=== PATIENT | male | born 1960 | race Caucasian/White ===

== ENCOUNTER 2017-03-30 13:12 | Emergency (ER) | payer OTHER, SELFPAY ==
[2017-03-30 15:26] VITALS: BP 151/77; PULSE 93; RESP 18; TEMP 37.7; O2SAT 95; BMI 27.3
[2017-03-30 15:55] LABS: UTC Influenza A Antigen Positive (Negative); UTC Influenza B Antigen Negative (Negative)
--- NOTE | 2017-03-30 16:46 | HMH.EDUTC ---
[facility] [place] Disposition Clinical Impression: Influenza A Disposition: Home, Self-Care Condition on Discharge: Good Instructions: DI for Influenza -- Adult Additional Instructions: * Too late to start tamiflu. Most effective when started within 48 hours of symptoms onset. * Lots of rest * Increase fluids, water, gatorade, powerade, pedialyte if /toddler/child * Monitor Temp. Tylenol every 4 hours as needed no more then 5 times a day or 4000mg in 24 hours and/or ibuprofen every 6 hours as needed no more then 3200mg in 24 hours (as long as your primary care doctor has told you that it is ok to take both) for fever/aches/pain. ER if fever no less than 101 despite tylenol and Ibuprofen * You (or your child) are contagious until no fever, aches, chills x 24 hours without medication for symptoms. * * Very important you monitor your blood sugars, especially when ill. Too high can be critical and cause you to need admitted and possibly even result in where as too low can cause hypoglycemic coma. pt states he is aware. Follow up IMMEDIATELY for new or worsening symptoms, improvement followed by suddenly feeling worse OR no noticeable improvement over the next 48-72 hours. 911 for difficulty breathing Referrals: Asad Victor MD [Primary Care Provider] - Time of Disposition: 16:58 Medical Decision Making Vital Signs: 03/30/17 15:26 Temperature 99.8 F H Temperature Source Temporal Artery Scan Pulse Rate [Left] 93 H Respiratory Rate 18 Blood Pressure [Right Arm] 151/77 Blood Pressure Mean [Right Arm] 101 Blood Pressure Source [Right Arm] Automatic Cuff Blood Pressure Position [Right Arm] Sitting 02 Sat by Pulse Oximetry 95 Oxygen Delivery Method Room Air - Lab Data Lab Results 03/30/17 15:29: Influenza Type A Ag Positive A, Influenza Type B Ag Negative - Quan Inquiry Pt receiving controlled substance: No [facility] [place] HPI - General Stated complaint: body aches Time Seen by Provider: 03/30/17 16:47 Mode of Arrival: Ambulatory Source of Information: Patient Limitations: No Limitations Description of Symptoms (Recalled from Triage Doc. by RN): COUGH, CONGESTION FEVER 3 DAYS HEENT Symptoms (Recalled from RN notes): Yes Resp Symptoms (Recalled from RN notes): No Skin Symptoms (Recalled from RN notes): No MS Symptoms (Recalled from RN notes): No Functional Status (Recalled from RN notes): N - History of Present Illness Provider Complaint: c/o I think I have the flu . Cough and head congestion x 3-4 days. Tired. Not sure about fevers. Hasn't taken or tried anything for symptoms. Has not had flu vaccine. No known sick contacts. - Related Data Home Medications Medication Instructions Recorded Confirmed Aspirin [Aspir-Low] 81 mg PO DAILY 03/30/17 03/30/17 Clopidogrel Bisulfate [Plavix 75mg 75 mg PO DAILY 03/30/17 03/30/17 Tab] Lisinopril [Lisinopril 10mg Tab] 10 mg PO DAILY 03/30/17 03/30/17 Allergies Allergy/AdvReac Type Severity Reaction Status Date / Time No Known Allergies Allergy Verified 03/30/17 15:36 - Worker's Comp Is this a Worker's Comp case?: No [facility] History Medical History: Reports:: Diabetes Mellitus Type 2 (doesn't monitor FSBG x years), Hypertension Denies:: Asthma, Congestive Heart Failure, Chronic Obstructive Pulmonary Disease (COPD) - *Social History Smoking Status: Current every day smoker Tobacco Type: cigarettes Alcohol Intake: never - Psychiatric History Expresses thoughts of harming self/others: None Suicide Plan Description: No Plan ROS Obtained: Yes All systems reviewed & no additional complaints except as noted - Constitutional Reports anorexia (drinking water and coffee and eating very little), Reports body ache(s), Reports chills, Reports fatigue, Reports fever(s) (subjective), Reports headache(s) (mild, intermittently) - Eyes Denies discharge - ENT Reports nasal discharge, Reports post nasal drip, Denies ear pain, Denies nasal congesti
== END 2017-03-30 17:03 | disposition home or self-care (01) ==
PROVIDERS: Emergency Provider Nurse Practitioner Family; PCP Emergency Medicine
DX: J10.1 Influenza due to other identified influenza virus with other respiratory manifestations (principal); F17.210 Nicotine dependence, cigarettes, uncomplicated
CPT/HCPCS: 87276; 87804; 99201

== ENCOUNTER → 2018-03-06 18:09 | Outpatient (CLI) | payer OTHER, SELFPAY ==
[2018-03-06 18:37] LABS: Basophils # 0.1 K/mm3 (0-0.2); Basophils % 0.5 % (0.1-2.0); Eosinophils # 0.5 K/mm3 (0.0-0.4); Eosinophils % 4.3 % (0.1-12.0); Hematocrit 40.6 % (42.0-52.0); Hemoglobin 13.2 g/dL (14.1-18.0); Lymphocytes % 27.1 % (10-50); Mean Corpuscular HGB Conc 32.5 g/dL (31.8-35.4); Mean Corpuscular Hemoglobin 30.4 pg (27.0-31.2); Mean Corpuscular Volume 93.3 fl (80-94); Mean Platelet Volume 7.3 fl (7.4-10.4); Monocytes # 0.7 K/mm3 (0.1-1.0); Monocytes % 6.3 % (1.7-9.3); Neutrophils # 6.7 K/mm3 (1.8-7.8); Neutrophils % 61.7 % (37.0-80.0); Platelet Count 380 K/mm3 (142-424); Red Blood Count 4.35 M/mm3 (4.60-6.20); Red Cell Distribution Width 13.6 % (11.5-17.5); White Blood Count 10.9 K/mm3 (4.8-10.8)
[2018-03-06 19:22] LABS: Alanine Aminotransferase 22 U/L (12-78); Albumin Level 3.7 gm/dL (3.4-5.0); Albumin/Globulin Ratio 1.2 (1.1-1.8); Anion Gap 13.6 mEq/L (5-15); Aspartate Amino Transferase 7 U/L (15-37); Bilirubin,Total 0.4 mg/dL (0.2-1.0); Blood Urea Nitrogen 13 mg/dL (7-18); Calcium 8.8 mg/dL (8.5-10.1); Carbon Dioxide 25 mmol/L (21.0-32.0); Chloride 104 mmol/L (98-107); Cholesterol 128 mg/dL (140-200); Creatinine,Serum 0.61 mg/dL (0.70-1.30); Estimated Glomerular Filt Rate 135 ml/min (>60); GFR (African American) 164 ML/MIN (>60); Globulin 3.2 gm/dl (1.3-3.2); Glucose 120 mg/dL (74-106); HDL Cholesterol 34 mg/dL (27-67); LDL Cholesterol 75 mg/dL (0-130); Potassium 4.6 mmoL/L (3.5-5.1); Sodium 138 mmol/L (136-145); Total Protein,Serum 6.9 gm/dL (6.4-8.2); Triglycerides 94 mg/dL (30-200); VLDL Cholesterol 19 mg/dL (0-40)
[2018-03-06 19:23] LABS: Alkaline Phosphatase 80 U/L (46-116); Chol/HDL Ratio 3.8 (1-3.5); Thyroid Stimulating Hormone 1.35 uIU/ml (0.358-3.740)
[2018-03-06 19:39] LABS: Hemoglobin A1C 7.2 % (0.0-7.0)
[2018-03-08 10:15] LABS: Microalbumin, Urine 54.2 ug/mL (Not Estab.)
[2018-03-08 15:22] LABS: Vitamin D 25 Hydroxy 34.2 ng/mL (30.0-100.0)
== END ==
PROVIDERS: Visit Provider Nurse Practitioner Family
DX: E11.9 Type 2 diabetes mellitus without complications (principal)
CPT/HCPCS: 80053; 80061; 82043; 82570; 82652; 83036; 84436; 84443; 85025

== ENCOUNTER → 2018-03-21 06:50 | Outpatient (CLI) | payer OTHER, SELFPAY ==
--- NOTE | 2018-03-21 06:52 | CI_ITS ---
Cerebrovascular Exam Indications: 433.10 Occlusion/stenosis of carotid artery without cerebral infarction. 785.9 Bruit. IMPRESSIONS 1. The bilateral vertebral arteries are patent with normal antegrade flow. 2. Study suggests less than 20% stenosis involving the right internal carotid artery. 3. Study suggests 50-69% stenosis involving the left internal carotid artery. Disease regression from the study of 14-Sep-2016. Had RECA following last carotid ultrasound on 09/14/16. Bilateral ECA's >60% no change Labs, prior tests, procedures, and surgery: Right endarterectomy. Labs, prior tests, procedures, and surgery: Right endarterectomy. Carotid duplex study. Complete study and Doppler flow study including spectral analysis, color and jiménez scale imaging. Location: Vascular laboratory. Patient status: Outpatient. Tables: Arterial flow: + +--------+--------+ Location V sys V ed + +--------+--------+ Right CCA - proximal 228cm/s 21.3cm/s + +--------+--------+ Right CCA - distal 87.6cm/s 22.4cm/s + +--------+--------+ Right ECA 210cm/s -------- + +--------+--------+ Right ICA - proximal 57.2cm/s 21.3cm/s + +--------+--------+ Right ICA - mid 98.8cm/s 40.4cm/s + +--------+--------+ Right ICA - distal 108cm/s 30.3cm/s + +--------+--------+ Right vertebral 67.3cm/s -------- + +--------+--------+ Left CCA - proximal 119cm/s 31.4cm/s + +--------+--------+ Left CCA - distal 95.4cm/s 24.7cm/s + +--------+--------+ Left ECA 205cm/s -------- + +--------+--------+ Left ICA - proximal 134cm/s 49.4cm/s + +--------+--------+ Left ICA - mid 117cm/s 42.7cm/s + +--------+--------+ Left ICA - distal 143cm/s 52.8cm/s + +--------+--------+ Left vertebral 70.7cm/s -------- + +--------+--------+ Velocity ratios: + + + + + + Right, V sys Right, V ed Left, V sys Left, V ed + + + + + + Max ICA/dist CCA 1.23 1.8 1.5 2.14 + + + + + + (Report amended ) Electronically signed by: Erich Alvarez [id number]
--- NOTE | 2018-03-21 06:52 | NM_ITS ---
CARDIOLITE SPECT MYOCARDIAL PERFUSION SCAN, REST AND STRESS: EXERCISE STRESS [facility] REVIEW QGS EF AND WALL MOTION EVALUATION: QPS - PERFUSION EVALUATION HISTORY: CAD, Hx of ND, HTN, DM, Tobacco use, SOB, Fatigue DOSE: 10.04 mCi technetium 99m mibi intravenously at rest followed by 31.2 mCi technetium 99m mibi following the intravenous ministration of 0.4 mg of Lexiscan. Resting blood pressure is 147/84. Stress blood pressure 167/85. FINDINGS: Ejection fraction is calculated to be 59%. Stress images reveal severely decreased activity in the septum mid anterior wall and inferior wall. Rest images reveal significant improvement yet still diminished IMPRESSION: High risk abnormal stress test with extensive nontransmural myocardial infarction involving the septum mid anterior apical wall and inferior wall with significant ischemia. Normal ejection fraction with hypokinetic inferior wall.
--- NOTE | 2018-03-21 07:14 | HMH.ITSHM ---
Current Home Medications as stated by this patient Mono Bobby or professional healthcare representative. []PRAVASTATIN NITRO METOPROLOL METFORMIN LISINOPRIL ISOSORBIDE DOCUSATE SODIUM CLOPIDOGREL ASA AMLODIPINE
== END ==
PROVIDERS: PCP Emergency Medicine; Visit Provider Internal Medicine Cardiovascular Disease
DX: R06.09 Other forms of dyspnea (principal); I25.10 Atherosclerotic heart disease of native coronary artery without angina pectoris; E11.8 Type 2 diabetes mellitus with unspecified complications; E78.5 Hyperlipidemia, unspecified; F17.200 Nicotine dependence, unspecified, uncomplicated; I10 Essential (primary) hypertension; I65.23 Occlusion and stenosis of bilateral carotid arteries; R20.0 Anesthesia of skin; R20.2 Paresthesia of skin; R53.83 Other fatigue; I73.9 Peripheral vascular disease, unspecified
CPT/HCPCS: 78452; 93017; 93306; 93880; A9502; J2785

== ENCOUNTER 2018-05-08 09:02 | Outpatient (RCR) | payer OTHER, SELFPAY | END 2018-06-20 08:56 | disposition home or self-care (01) | LOC: PT 09:02 | PROVIDERS: Visit Provider Internal Medicine | DX: Z95.5 Presence of coronary angioplasty implant and graft (principal) | CPT/HCPCS: 93798 ==

== ENCOUNTER → 2018-06-18 14:28 | Outpatient (CLI) | payer OTHER, SELFPAY ==
[2018-06-18 14:57] LABS: Hemoglobin A1C 8.4 % (0.0-7.0)
== END ==
PROVIDERS: Visit Provider Nurse Practitioner Family
DX: E11.9 Type 2 diabetes mellitus without complications (principal); Z79.84 Long term (current) use of oral hypoglycemic drugs
CPT/HCPCS: 83036

== ENCOUNTER → 2018-06-19 10:35 | Outpatient (CLI) | payer OTHER, SELFPAY ==
[2018-06-19 10:40] LABS: Microscopic, Urine URINE MICROSCOPIC (MICROSCOPIC)
[2018-06-19 11:12] LABS: Appearance,Urine CLEAR (Clear); Bilirubin,Urine Negative (Negative); Blood, Urine Negative (Negative); Color,Urine YELLOW (Yellow); Glucose,Urine (UA) 1+ (Negative); Ketones,Urine Negative (Negative); Leukocyte Esterase,Urine Negative (Negative); Nitrate,Urine Negative (Negative); Protein,Urine Negative (Negative); Specific Gravity, Urine <= 1.005 (1.005-1.030); Urobilinogen,Urine 0.2 EU/dl (0.2)
[2018-06-19 11:14] LABS: Basophils # 0.1 K/mm3 (0-0.2); Basophils % 0.5 % (0.1-2.0); Creatinine,Urine Random 42 mg/dL (20-320); Eosinophils # 0.4 K/mm3 (0.0-0.4); Eosinophils % 2.7 % (0.1-12.0); Hematocrit 40.3 % (42.0-52.0); Hemoglobin 13.6 g/dL (14.1-18.0); Lymphocytes # 2.6 K/mm3 (0.7-4.5); Lymphocytes % 20.2 % (10-50); Mean Corpuscular HGB Conc 33.8 g/dL (31.8-35.4); Mean Corpuscular Volume 91.6 fl (80-94); Mean Platelet Volume 6.8 fl (7.4-10.4); Monocytes # 0.6 K/mm3 (0.1-1.0); Monocytes % 4.5 % (1.7-9.3); Neutrophils # 9.4 K/mm3 (1.8-7.8); Neutrophils % 72.1 % (37.0-80.0); Platelet Count 360 K/mm3 (142-424); Red Cell Distribution Width 12.8 % (11.5-17.5); Total Protein,Urine Random 14.9 mg/dL (0.0-11.9)
[2018-06-19 11:40] LABS: WBC,Urine Occasional #/hpf (0-3)
[2018-06-19 12:53] LABS: Anion Gap 15.8 mEq/L (5-15); Blood Urea Nitrogen 13 mg/dL (7-18); Carbon Dioxide 25 mmol/L (21.0-32.0); Chloride 101 mmol/L (98-107); Creatinine,Serum 0.67 mg/dL (0.70-1.30); Estimated Glomerular Filt Rate 121 ml/min (>60); GFR (African American) 147 ML/MIN (>60); Glucose 257 mg/dL (74-106); Phosphorous 3.3 mg/dL (2.4-4.9); Potassium 4.8 mmoL/L (3.5-5.1); Sodium 137 mmol/L (136-145)
[2018-06-20 08:44] LABS: Vitamin D 25 Hydroxy 28.4 ng/mL (30.0-100.0)
[2018-06-20 15:44] LABS: Parathyroid Hormone Intact 36 pg/mL (15-65)
== END ==
PROVIDERS: Visit Provider Internal Medicine Nephrology
DX: R80.9 Proteinuria, unspecified (principal)
CPT/HCPCS: 36415; 80069; 81001; 82330; 82570; 82652; 83970; 84155; 85025

== ENCOUNTER → 2018-06-28 13:06 | Outpatient (POV) | payer OTHER, SELFPAY | PROVIDERS: Visit Provider Internal Medicine Nephrology | DX: Z00.00 Encounter for general adult medical examination without abnormal findings (principal) ==

== ENCOUNTER 2018-07-26 17:49 | Emergency (ER) | payer OTHER, SELFPAY ==
[2018-07-26 18:14] VITALS: BP 152/77; PULSE 84; RESP 18; TEMP 37.1; O2SAT 96; BMI 29.0
--- NOTE | 2018-07-26 18:29 | HMH.EDUTC ---
[facility] [place] Disposition Clinical Impression: Parotitis Disposition: Home, Self-Care Condition on Discharge: Good Instructions: Parotitis Additional Instructions: Go to the ER for any worsening symptoms, such as fever, chills, etc. Follow up with your regular doctor. I put in a referral to ENT. Please call the office number and schedule yourself an appointment there to be rechecked also. Prescriptions: Amoxicillin/Potassium Clav [Augmentin 875-125 Tablet] 1 tab PO Q12H 10 Days #20 tab methylPREDNISolone [Medrol] 4 mg PO DIRECTED 6 Days #21 tab.ds.pk Referrals: Asad Victor MD [Primary Care Provider] - Time of Disposition: 18:45 Medical Decision Making - Medical Records Medical records reviewed: Yes: I reviewed the patient's medical records. - Quan Inquiry Pt receiving controlled substance: No Quan was queried for this patient: No Vital Signs: 07/26/18 18:14 07/26/18 18:38 Temperature 98.8 F 98.8 F Temperature Source Temporal Artery Scan Oral Pulse Rate 84 Pulse Rate [Right Brachial] 84 Respiratory Rate 18 18 Blood Pressure 152/77 H Blood Pressure [Right Arm] 152/77 H Blood Pressure Mean [Right Arm] 102 Blood Pressure Source Automatic Cuff Blood Pressure Source [Right Arm] Automatic Cuff Blood Pressure Position Sitting Blood Pressure Position [Right Arm] Sitting 02 Sat by Pulse Oximetry 96 Oxygen Delivery Method Room Air Room Air Orders (Tests/Meds): ED MEDICATIONS Discontinued Medications Generic Name Dose Route Start Last Admin Trade Name Freq PRN Reason Stop Dose Admin Ceftriaxone Sodium 1 gm 07/26/18 18:30 07/26/18 18:37 Rocephin 1gm Vial IM 07/26/18 18:31 1 gm ONCE ONE Administration Protocol Lidocaine HCl 0 ml 07/26/18 18:30 07/26/18 18:37 Lidocaine 1% 10ml Mdv IM 07/26/18 18:31 2.1 ml ONCE ONE Administration [facility] [place] HPI - General Stated complaint: Jaw Swelling Time Seen by Provider: 07/26/18 18:20 Mode of Arrival: Family Vehicle Source of Information: Patient Limitations: No Limitations Description of Symptoms (Recalled from Triage Doc. by RN): C/O JAW SWELLING X 1 WEEK HEENT Symptoms (Recalled from RN notes): Yes Resp Symptoms (Recalled from RN notes): No Skin Symptoms (Recalled from RN notes): No MS Symptoms (Recalled from RN notes): No Functional Status (Recalled from RN notes): N/A - History of Present Illness Provider Complaint: He c/o swelling in the area just in front of his right ear and along his jaw line on the right side for the past 1 week. In the distant past he had parotitis. He thinks he has it again. He denies any fever or chills. He does admit to having a sore throat and pain with opening his mouth. - Related Data Home Medications Medication Instructions Recorded Confirmed nitroglycerin 0.4 mg sublingual 0.4 mg SUBLINGUAL Q5M PRN 04/17/17 06/18/18 tablet bupropion HCl SR 150 mg tablet,12 150 mg PO DAILY tab 07/19/18 hr sustained-release docusate sodium 100 mg capsule 100 mg PO QDAY PRN 07/19/18 Previous Rx's Medication Instructions Recorded clopidogrel 75 mg tablet 75 mg PO DAILY #90 tab 04/11/18 isosorbide mononitrate ER 30 mg 30 mg PO QAM #90 tab 04/20/18 tablet,extended release 24 hr metoprolol tartrate 50 mg tablet 50 mg PO BID #180 tab 04/20/18 lisinopril 10 mg tablet 5 mg PO DAILY #90 tab 04/23/18 metformin ER 500 mg 500 mg PO BID #60 tab 06/19/18 tablet,extended release 24 hr amlodipine 5 mg tablet 5 mg PO QDAY #90 tab 07/16/18 Amoxicillin/Potassium Clav 1 tab PO Q12H 10 Days #20 tab 07/26/18 [Augmentin 875-125 Tablet] methylPREDNISolone [Medrol] 4 mg PO DIRECTED 6 Days #21 07/26/18 tab.ds.pk Allergies Allergy/AdvReac Type Severity Reaction Status Date / Time No Known Allergies Allergy Verified 07/19/18 09:51 - Worker's Comp Is this a Worker's Comp case?: No [facility] History - Hepatitis A Screen Drug use history?: No High risk sexual behaviors?: No Hist
--- NOTE | 2018-07-26 18:33 | ED_ITS ---
[facility] [place] Clinical Impression: Parotitis Disposition: Home, Self-Care Condition on Discharge: Good Instructions: Parotitis Additional Instructions: Go to the ER for any worsening symptoms, such as fever, chills, etc. Follow up with your regular doctor. I put in a referral to ENT. Please call the office number and schedule yourself an appointment there to be rechecked also. Prescriptions: Amoxicillin/Potassium Clav [Augmentin 875-125 Tablet] 1 tab PO Q12H 10 Days #20 tab methylPREDNISolone [Medrol] 4 mg PO DIRECTED 6 Days #21 tab.ds.pk Referrals: Asad Victor MD [Primary Care Provider] - Time of Disposition: 18:45 Medical Decision Making - Medical Records Medical records reviewed: Yes: I reviewed the patient's medical records. - Quan Inquiry Pt receiving controlled substance: No Quan was queried for this patient: No Vital Signs: 07/26/18 18:14 07/26/18 18:38 Temperature 98.8 F 98.8 F Temperature Source Temporal Artery Scan Oral Pulse Rate 84 Pulse Rate [Right Brachial] 84 Respiratory Rate 18 18 Blood Pressure 152/77 H Blood Pressure [Right Arm] 152/77 H Blood Pressure Mean [Right Arm] 102 Blood Pressure Source Automatic Cuff Blood Pressure Source [Right Arm] Automatic Cuff Blood Pressure Position Sitting Blood Pressure Position [Right Arm] Sitting 02 Sat by Pulse Oximetry 96 Oxygen Delivery Method Room Air Room Air Orders (Tests/Meds): ED MEDICATIONS Discontinued Medications Generic Name Dose Route Start Last Admin Trade Name Freq PRN Reason Stop Dose Admin Ceftriaxone Sodium 1 gm 07/26/18 18:30 07/26/18 18:37 Rocephin 1gm Vial IM 07/26/18 18:31 1 gm ONCE ONE Administration Protocol Lidocaine HCl 0 ml 07/26/18 18:30 07/26/18 18:37 Lidocaine 1% 10ml Mdv IM 07/26/18 18:31 2.1 ml ONCE ONE Administration [facility] [place] - General Stated complaint: Jaw Swelling Time Seen by Provider: 07/26/18 18:20 Mode of Arrival: Family Vehicle Source of Information: Patient Limitations: No Limitations Description of Symptoms (Recalled from Triage Doc. by RN): C/O JAW SWELLING X 1 WEEK HEENT Symptoms (Recalled from RN notes): Yes Resp Symptoms (Recalled from RN notes): No Skin Symptoms (Recalled from RN notes): No MS Symptoms (Recalled from RN notes): No Functional Status (Recalled from RN notes): N/A - History of Present Illness Provider Complaint: He c/o swelling in the area just in front of his right ear and along his jaw line on the right side for the past 1 week. In the distant past he had parotitis. He thinks he has it again. He denies any fever or chills. He does admit to having a sore throat and pain with opening his mouth. - Related Data Home Medications Medication Instructions Recorded Confirmed nitroglycerin 0.4 mg sublingual 0.4 mg SUBLINGUAL Q5M PRN 04/17/17 06/18/18 tablet bupropion HCl SR 150 mg tablet,12 150 mg PO DAILY tab 07/19/18 hr sustained-release docusate sodium 100 mg capsule 100 mg PO QDAY PRN 07/19/18 Previous Rx's Medication Instructions Recorded clopidogrel 75 mg tablet 75 mg PO DAILY
[2018-07-26 18:38] VITALS: BP 152/77; PULSE 84; RESP 18; TEMP 37.1; O2SAT 96
== END 2018-07-26 18:51 | disposition home or self-care (01) ==
LOC: UTC 18:50
PROVIDERS: Emergency Provider Nurse Practitioner Family; PCP Emergency Medicine
DX: K11.20 Sialoadenitis, unspecified (principal)
CPT/HCPCS: 96372; 99201

== ENCOUNTER → 2019-01-22 10:01 | Outpatient (CLI) | payer OTHER, SELFPAY ==
--- NOTE | 2019-01-22 10:03 | US_ITS ---
APPROVED REPORT Exam Type: Lower Extremity Segmental Pressures Indications Claudication: Limb Pain: Numbness/Tingling History of Smoking CAD Risk Factors Hypertension Cardiac Disease Diabetes Pressures/Indices Right Indices Left Indices Brachial 140.00 mmHg Brachial 132.00 mmHg Low Thigh 115.00 mmHg 0.82 Low Thigh 66.00 mmHg 0.47 Calf 103.00 mmHg 0.74 Calf 93.00 mmHg 0.66 Ankle(PT) 110.00 mmHg 0.79 Ankle(PT) 76.00 mmHg 0.54 Ankle(DP) 122.00 mmHg 0.87 Ankle(DP) 92.00 mmHg 0.66 Digit 57.00 mmHg 0.41 Digit 47.00 mmHg 0.34 Findings R SIL .8 L ISL .5 R TBI .[address] TBI .3 Dr. Workman's office notified Conclusion Mild arterial disease on the right Moderate arterial disease on the left Electronically signed by : Dakota Quach MD 01/23/2019 17:46:40
--- NOTE | 2019-01-22 10:03 | CA_ITS ---
APPROVED REPORT Moving Van Driver: Rebecca Wu RDCS Laterality: Bilateral Study Quality: Good Indications: CHELSEA DM PREVIOUS SMOKER CAD H/O R ENDARTERECTOMY Doppler Spectral Velocity Analysis ECA (R) 292.90/ cm/s ECA (L) 203.40/23.70 cm/s dICA (R) 64.70/24.60 cm/s dICA (L) 84.10/28.30 cm/s Marlo (R) 70.60/23.80 cm/s Marlo (L) 99.50/26.30 cm/s pICA (R) 76.30/12.70 cm/s pICA (L) 120.80/31.70 cm/s dCCA (R) 117.70/22.30 cm/s dCCA (L) 75.60/15.70 cm/s pCCA (R) 163.00/25.00 cm/s pCCA (L) 98.00/20.00 cm/s Vert (R) 50.00/15.40 cm/s Vert (L) 46.60/12.30 cm/s ICA/CCA 1.60 ICA/CCA 3.02 Findings Duplex evaluation demonstrates stenosis of the right proximal internal carotid artery <20% with PSV <140 cm/sec, EDV <100 cm/sec, and IC/CC Ratio <4.0.Duplex evaluation demonstrates stenosis of the left proximal internal carotid artery in the range of 50-69% with PSV =140 cm/sec, EDV <100 cm/sec, and IC/CC Ratio <4.0.Antegrade flow seen bilateral vertebral arteries. Elevated ECA velocities. No signicant change from previous exam of 03/21/2018 Conclusion Duplex evaluation demonstrates stenosis of the right proximal internal carotid artery <20% with PSV <140 cm/sec, EDV <100 cm/sec, and IC/CC Ratio <4.0.Duplex evaluation demonstrates stenosis of the left proximal internal carotid artery in the range of 50-69% with PSV =140 cm/sec, EDV <100 cm/sec, and IC/CC Ratio <4.0.Antegrade flow seen bilateral vertebral arteries. Elevated ECA velocities. No signicant change from previous exam of 03/21/2018 Electronically signed by : Dakota Quach MD 01/23/2019 17:42:22
== END ==
PROVIDERS: PCP Nurse Practitioner Family; Visit Provider Internal Medicine
DX: I65.23 Occlusion and stenosis of bilateral carotid arteries (principal); I73.9 Peripheral vascular disease, unspecified; R06.00 Dyspnea, unspecified; R42 Dizziness and giddiness; E11.9 Type 2 diabetes mellitus without complications; E78.5 Hyperlipidemia, unspecified; I10 Essential (primary) hypertension; I25.10 Atherosclerotic heart disease of native coronary artery without angina pectoris; F17.200 Nicotine dependence, unspecified, uncomplicated; Z79.84 Long term (current) use of oral hypoglycemic drugs
CPT/HCPCS: 93880; 93923

== ENCOUNTER 2019-05-24 12:55 | Outpatient (RCR) | payer OTHER, SELFPAY | END 2019-07-25 13:07 | disposition home or self-care (01) | LOC: PT 12:55 | PROVIDERS: Visit Provider Nurse Practitioner Family | DX: Z95.1 Presence of aortocoronary bypass graft (principal); I25.10 Atherosclerotic heart disease of native coronary artery without angina pectoris; I73.9 Peripheral vascular disease, unspecified | CPT/HCPCS: 93798 ==

== ENCOUNTER → 2020-03-11 16:40 | Outpatient (CLI) | payer OTHER, SELFPAY ==
[2020-03-11 17:33] LABS: Basophils # 0.1 K/mm3 (0-0.2); Basophils % 0.5 % (0.1-2.0); Eosinophils # 0.2 K/mm3 (0.0-0.4); Eosinophils % 1.5 % (0.1-12.0); Hematocrit 42.1 % (42.0-52.0); Hemoglobin 14.2 g/dL (14.1-18.0); Lymphocytes # 2.4 K/mm3 (0.7-4.5); Lymphocytes % 24.3 % (10-50); Mean Corpuscular HGB Conc 33.8 g/dL (31.8-35.4); Mean Corpuscular Hemoglobin 31.5 pg (27.0-31.2); Mean Corpuscular Volume 93.5 fl (80-94); Mean Platelet Volume 8.1 fl (7.4-10.4); Monocytes # 0.7 K/mm3 (0.1-1.0); Neutrophils # 6.7 K/mm3 (1.8-7.8); Neutrophils % 66.8 % (37.0-80.0); Platelet Count 390 K/mm3 (142-424); Red Blood Count 4.51 M/mm3 (4.60-6.20); Red Cell Distribution Width 13.6 % (11.5-17.5)
[2020-03-11 17:50] LABS: Alanine Aminotransferase 27 U/L (12-78); Albumin Level 4.1 g/dl (3.5-5.0); Albumin/Globulin Ratio 1.3 (1.1-1.8); Alkaline Phosphatase 97 U/L (38-126); Anion Gap 14.6 mEq/L (5-15); Aspartate Amino Transferase 23 U/L (17-59); Bilirubin,Total 0.4 mg/dl (0.2-1.3); Blood Urea Nitrogen 17 mg/dl (9-20); Calcium 9.9 mg/dl (8.4-10.2); Carbon Dioxide 24 mmol/L (22.0-30.0); Chloride 102 mmol/L (98-107); Chol/HDL Ratio 4.9 (1-3.5); Cholesterol 165 mg/dl (140-200); Estimated Glomerular Filt Rate 115 ml/min (>60); GFR (African American) 139 ML/MIN (>60); Globulin 3.1 g/dL (1.3-3.2); Glucose 180 mg/dl (74-100); HDL Cholesterol 34 mg/dl (40-60); Potassium 4.6 mmoL/L (3.5-5.1); Sodium 136 mmol/L (136-145); Total Protein,Serum 7.2 g/dl (6.3-8.2); Triglycerides 330 mg/dl (30-150); VLDL Cholesterol 66 mg/dL (0-40)
[2020-03-11 18:02] LABS: Direct LDL Cholesterol 95.56 mg/dL (100-129)
[2020-03-11 18:07] LABS: 25-OH Vitamin D, Total 24.6 ng/mL (30-100); T4 (Thyroxine) 6.6 ug/dl (5.53-11.0)
[2020-03-11 18:21] LABS: Thyroid Stimulating Hormone 1.26 uIU/mL (0.465-4.68)
[2020-03-11 19:23] LABS: Hemoglobin A1C 7.6 % (4.0-6.0)
[2020-03-11 19:36] LABS: Creatinine,Urine Random 125 mg/dL (Not Estab.); Microalbumin/Creatinine Ratio 168.4
== END ==
PROVIDERS: Visit Provider Nurse Practitioner Family
DX: E11.9 Type 2 diabetes mellitus without complications (principal); E78.5 Hyperlipidemia, unspecified; I10 Essential (primary) hypertension; I25.10 Atherosclerotic heart disease of native coronary artery without angina pectoris; I73.9 Peripheral vascular disease, unspecified; F17.200 Nicotine dependence, unspecified, uncomplicated; E55.9 Vitamin D deficiency, unspecified; Z79.4 Long term (current) use of insulin
CPT/HCPCS: 80053; 80061; 82043; 82306; 82570; 83036; 84436; 84443; 85025

== ENCOUNTER → 2020-03-17 06:37 | Outpatient (CLI) | payer OTHER, SELFPAY ==
--- NOTE | 2020-03-17 06:38 | CA_ITS ---
APPROVED REPORT Exam: Pharmacologic Technologist: Minnie Lechuga Ht: 5 ft 7 in Wt: 202 lbs BSA: 2.03 m2 HR: 60 bpm BP: 149/65 mmHg Indications: Right arm pain, Stenosis, Shortness of Air Medical History Medications: Amlodipine,,,,, Lisinopril,,,,, Isosorbide,,,,, Aspirin,,,,, Metoprolol,,,,, Pravastatin,,,,, Ropinirole,,,,, INSULIN,,,,, Nitroglycerin,,,,, DOcusate,,,,, RIvaROXABAN,,,,, BuPRIprion,,,,, Stress Test Details Test: LEXISCAN HR Resting HR: 58 bpm Max Heart Rate (APMHR): 159 bpm Max HR Achieved: 92 bpm Target HR (85% APMHR): 135 bpm % of APMHR: 57 Recovery HR: 70 bpm BP Resting BP: 149.0/65.0 mmHg Max BP: 168.0/73.0 mmHg Recovery BP: 166.0/71.0 mmHg ECG Resting ECG: Sinus bradycardia, intermittent right bundle branch block Clinical Exercise duration: 04:07 min Highest Stage Achieved: Exercise capacity: 1.0 METs Stress ECG Conclusion Symptoms: Shortness of air, malaise, headache. No chest pain. Arrhythmias/Ectopy: Right bundle branch block intermitently ST-T Changes: No significant changes. Conclusion: Unremarkable Lexiscan stress. Myoview images reported separately. Electronically signed by : Nirmal Leone, 03/18/2020 06:38:31
--- NOTE | 2020-03-17 06:38 | NM_ITS ---
APPROVED REPORT Exam: Nuclear Stress Test Indication: Chest pain, SOB, HTN, CAD, CABG, High cholesterol, DM, Tobacco use Patient Location: Outpatient Stress Tech: Minnie Lechuga [place] Tech:Aniyah Etienne, ARRT, RT (R)(N) Ht: 5 ft 7 in Wt: 201 lbs HR: 60 bpm BP: 149/65 mmHg BSA: 2.03 m2 BMI: 31.4 History: Chest pain, SOB, HTN, CAD, CABG, High cholesterol, DM, Tobacco use Procedure: Patient received a 0.4 mg of intravenous Lexiscan, resting heart rate 60 bpm, resting blood pressure 149/65 mmHg, with Lexiscan maximum heart rate achived was 77 bpm which is Less than 85 % of the maximum predicted heart rate and blood pressure was 149/74 mmHg. With Lexiscan, patient denied any complaint of chest pain. Electrocardiogram Resting electrocardiogram showed sinus rhythm right bundle branch block, with Lexiscan there is less than 1.[address] segment depression noted from the baseline EKG. The EKG portion of the Lexiscan is nondiagnostic. Cardiac Stress and Resting SPECT Images: Cardiac Stress and Resting SPECT images were obtained using technetium 99m Myoview 32.1 mCi stress and 10.01 mCi at rest. Gated SPECT for analysis of segmental wall motion and calculation of the ejection fraction also done. Prone images were also obtained. Cardiac stress and resting SPECT images show fixed defect involving the inferoseptal wall consistent with area of myocardial scarring without significant christina-infarct ischemia, computer derived ejection fraction is 59% with mild inferoseptal wall hypokinesis. Right ventricle is mildly enlarged with normal contractility. Conclusion: 1. The EKG portion of the Lexiscan is nondiagnostic. 2. Scintigraphic evidence of myocardial scarring involving the inferoseptal wall, computer derived ejection fraction is 59% with segmental wall motion abnormality described above, right ventricle is mildly enlarged with normal contractility. 3. Abnormal Lexiscan Myoview study. Electronically signed by : Nirmal Leone, 03/18/2020 06:51:39
--- NOTE | 2020-03-17 06:38 | CA_ITS ---
APPROVED REPORT EXAM: Comprehensive 2D, Doppler, and color-flow Echocardiogram Skein Inspector: Heike Carmona RVT Ht: 5 ft 7 in Wt: 202lbs BSA: 2.03 BP: 160/82 mmHg Indications: SOA,CAD,PAD,SENT,CABG,EX SMOKER,DM,HTN,HLD 2D Dimensions LVOT 1.54 cm (M/F) 1.5-2.5 M-Mode Dimensions RVDd 3.50 cm (0.9-2.6) LA Diam 4.10 cm (1.9-4.0) LVDd 5.95 cm (3.5-5.7) Ao Diam 2.68 cm (2.0-3.7) LVDs 4.30 cm (3.5-5.7) IVSd 0.92 cm (0.6-1.1) PWd 1.00 cm (0.6-1.1) EF (Teich) 52.90% FS 27.70% EDV (Teich) 176.60 mL ESV (Teich) 83.10 mL LV Diastology E Decel Time 243.00 (160-240 msec) E/A Ratio 1.0 MED E' 7.40 (< 7 cm/sec) E'/MED E' Ratio 8.05 (>14) LAT E' 7.30 (<10 cm/sec) E/LAT E' Ratio 8.16 (>14) Aortic Valve AI PHT 689.00 ms Mitral Valve MV E Max Gonzales. 60.00 (40-130 cm/s) MV A Velocity 63.00 (40-130 cm/s) E/A Ratio 0.95 MV Decel. Time 243.00 (160-240 ms) MV PHT 71.00 ms Pulmonary Valve PV Peak Velocity 78.00 (50-150 cm/s) Left Ventricle Technically difficult study because of the patient factors and poor acoustic windows, endocardial surfaces are poorly visualized, left atrium is mildly enlarged, left ventricle is normal size, mild concentric left ventricular hypertrophy, visually estimated ejection fraction approximately 45%, there is moderate hypokinesis involving the basal septum and inferior wall. Grade 1 diastolic dysfunction seen without tissue Doppler evidence of raise left atrial pressure. Right Ventricle Right atrium and right ventricle are normal size and contractility. Aortic Valve Aortic valve is thickened and calcified leaflet continue to display good mobility, there is no aortic stenosis, there is mild aortic insufficiency. Mitral Valve Mitral valve is grossly normal, there is mild mitral regurgitation. Tricuspid Valve Tricuspid valve is grossly normal, there is mild tricuspid regurgitation, tricuspid regurgitation jet velocity is inadequate for calculation of the right ventricular systolic pressure. Pulmonic Valve Pulmonic valve is poorly visualized. Great Vessels Aortic root is normal size. Pericardium No significant pericardial effusion noted. Conclusion 1. Technically difficult study because of the patient factors and poor acoustic windows. 2. Mildly enlarged left atrium, normal left ventricular size, mild concentric left ventricular hypertrophy, visually estimated ejection fraction 45% with segmental wall motion abnormality described above, grade 1 diastolic dysfunction seen without tissue Doppler evidence of raise left atrial pressure. 3. Mild aortic, mild mitral and tricuspid regurgitation. 4. No significant pericardial effusion noted. Electronically signed by : Nirmal Leone, 03/18/2020 05:43:42
--- NOTE | 2020-03-17 07:47 | CA_ITS ---
APPROVED REPORT Automotive Painter Helper: Heike Carmona RVT Laterality: Bilateral Study Quality: Excellent Indications: bilateral carotid artery stenosis Risk Factors Hypertension: Hyperlipidemia Smoking Surgery/Intervention Endarterectomy: right Doppler Spectral Velocity Analysis ECA (R) 224.20/6.40 cm/s ECA (L) 150.80/13.90 cm/s dICA (R) 80.20/21.40 cm/s dICA (L) 88.80/16.00 cm/s Marlo (R) 87.70/18.20 cm/s Marlo (L) 96.20/17.10 cm/s pICA (R) 69.50/13.90 cm/s pICA (L) 124.00/21.40 cm/s dCCA (R) 73.80/6.40 cm/s dCCA (L) 59.90/7.50 cm/s pCCA (R) 111.20/6.40 cm/s pCCA (L) 117.60/15.00 cm/s Vert (R) 48.10/9.60 cm/s Vert (L) 48.10/8.60 cm/s ICA/CCA 1.19 ICA/CCA 2.07 Findings Study suggests less than 20% stenosis of the right internal cartoid artery. Study suggests 20-49% stenosis of the left internal cartoid artery. Antegrade flow seen bilateral vertebral arteries. Conclusion Study suggests less than 20% stenosis of the right internal cartoid artery. Study suggests 20-49% stenosis of the left internal cartoid artery. Antegrade flow seen bilateral vertebral arteries. Electronically signed by : Dakota Quach MD 03/17/2020 17:05:17
--- NOTE | 2020-03-17 08:36 | HMH.ITSHM ---
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 []ROPINIROLE RIVAROXABAN PREDNISONE PRAVASTATIN NITRO NAPROXEN METOPROLOL LISINOPRIL ISOSORBIDE INSULIN DOCUSATE BUPROPION ASA AMLODIPINE
== END ==
PROVIDERS: PCP Emergency Medicine; Visit Provider Urology
DX: R06.00 Dyspnea, unspecified (principal); M79.601 Pain in right arm; I25.10 Atherosclerotic heart disease of native coronary artery without angina pectoris; I65.23 Occlusion and stenosis of bilateral carotid arteries; I73.9 Peripheral vascular disease, unspecified; E78.2 Mixed hyperlipidemia; I10 Essential (primary) hypertension; F17.200 Nicotine dependence, unspecified, uncomplicated
CPT/HCPCS: 78452; 93017; 93306; 93880; A9502; J2785

== ENCOUNTER → 2020-03-24 10:48 | Outpatient (CLI) | payer OTHER, SELFPAY ==
--- NOTE | 2020-03-24 10:48 | CT_ITS ---
Procedure: CT ABDOMEN PELVIS WO CON Referring Doctor: Killian Roberts Patient Age:60Y CLINICAL INDICATION: hernia left inguinal hernia COMPARISON: CT ABDPELW/WO CT ABD PELVIS W/WO CONTRAST from 04/30/2013 TECHNIQUE: . No IV contrast Axial images obtained with sagittal and coronal reformats. All CT scans at the facility use one or more dose reduction, viz: automated exposure control, ma/kV adjustment per patient size (including targeted exams where dose is matched to indication, i.e. head), or iterative reconstruction technique. FINDINGS: Lower thorax: No acute finding. Heart normal size with CABG noted ABDOMEN: Lack of IV contrast decreases sensitivity Liver: No masses or biliary dilatation.. Scattered granulomatous calcifications again noted Gallbladder: Nondistended. No a tiny density at posterior gallbladder axial image 3 could reflect a tiny stone or sludge period. Common duct normal Pancreas: No masses or peripancreatic fluid collections. Spleen: u normal size. Granulomatous calcifications but e Adrenals: unremarkable --- tract---no obstructive uropathy kidneys/ureters: A few faint tiny punctate calculi bilaterally Left kidney. Tiny less than 2 mm calculus lower pole calyx but nonobstructive. Right kidney tiny less than 2 mm nonobstructive calculus upper pole right kidney Ureters unremarkable . Urinary bladder but no calculi. No masses. Moderate-sized prostate ---GI tract---- Stomach. Generous wall thickness most likely reflects lack of distension. Duodenal loop a generous caliber was small air-fluid level. Small-bowel. Scattered small/moderate air-fluid levels, with borderline dilatation of a few of the loops. Appendix normal caliber no appendicitis. 1 The PROMINENT LEFT INGUINAL HERNIA containing generous loop of the redundant sigmoid colon and generous surrounding fat. No inflammation no strangulation or incarceration evident. Large bowel normal caliber nondilated no obstruction moderate stool throughout This left inguinal hernia is larger and pronounced than it was 2014 . Peritoneum: No abnormal fluid collections. No obvious inflammatory changes. No free air. Lymph nodes: No enlarged lymph nodes apparent. Vasculature: . moderate diffuse atherosclerotic calcification aorta and iliac arteries and to lesser degree the branches but no aneurysm. Bones: Mild superior endplate compression fracture at L3. This was seen on previous 2014 study but is slightly more pronounced with slight additional sclerosis at mid body L 3 IMPRESSION: 1. Prominent Left Inguinal Hernia-which is more prominent than on previous 2014 CT; and now contains generous loop of sigmoid colon within it. No inflammation no strangulation nor bowel obstruction. Large bowel is normal caliber, nondilated Colonic diverticulosis but no diverticulitis. Small-bowel upper normal caliber with scattered small to moderate air-fluid levels, nonspecific. Possible minor ileus 2.. Tiny density posterior gallbladder axial image 3-reflect tiny stones or sludge 3. Very tiny punctate non obstructive renal calculi again noted. 4.Old superior endplate compression L3 vertebra again noted. Only very slightly more pronounced than 2014 Dictated by: Erich Alvarez MD 03/25/2020 17:23 Erich Alvarez MD in [place] 03/25/2020 17:23
== END ==
PROVIDERS: PCP Emergency Medicine; Visit Provider Nurse Practitioner Family
DX: K40.90 Unilateral inguinal hernia, without obstruction or gangrene, not specified as recurrent (principal)
CPT/HCPCS: 74176

== ENCOUNTER → 2020-03-28 07:19 | Outpatient (CLI) | payer OTHER, SELFPAY ==
[2020-03-28 07:42] LABS: Basophils # 0.1 K/mm3 (0-0.2); Basophils % 0.6 % (0.1-2.0); Eosinophils # 0.2 K/mm3 (0.0-0.4); Eosinophils % 1.3 % (0.1-12.0); Hematocrit 40.9 % (42.0-52.0); Hemoglobin 13.7 g/dL (14.1-18.0); Lymphocytes # 2.3 K/mm3 (0.7-4.5); Mean Corpuscular HGB Conc 33.6 g/dL (31.8-35.4); Mean Corpuscular Hemoglobin 30.8 pg (27.0-31.2); Mean Corpuscular Volume 91.6 fl (80-94); Mean Platelet Volume 7.5 fl (7.4-10.4); Monocytes # 0.8 K/mm3 (0.1-1.0); Neutrophils # 12.9 K/mm3 (1.8-7.8); Neutrophils % 79.1 % (37.0-80.0); Platelet Count 339 K/mm3 (142-424); Red Blood Count 4.46 M/mm3 (4.60-6.20); Red Cell Distribution Width 13.6 % (11.5-17.5); White Blood Count 16.3 K/mm3 (4.8-10.8)
[2020-03-28 07:43] LABS: MANUAL DIFFERENTIAL MANUAL DIFFERENTIAL (MANUAL DIFF)
[2020-03-28 08:07] LABS: Anion Gap 10.1 mEq/L (5-15); Blood Urea Nitrogen 23 mg/dl (9-20); Calcium 10.1 mg/dl (8.4-10.2); Carbon Dioxide 28 mmol/L (22.0-30.0); Chloride 102 mmol/L (98-107); Estimated Glomerular Filt Rate 115 ml/min (>60); GFR (African American) 139 ML/MIN (>60); Glucose 209 mg/dl (74-100); Potassium 5.1 mmoL/L (3.5-5.1); Sodium 135 mmol/L (136-145)
[2020-03-28 08:25] LABS: Coronavirus 19 IgG Antibody Negative (Negative); Coronavirus 19 IgM Antibody Negative (Negative)
[2020-03-28 08:32] LABS: Lymphocytes % 16 % (10-50); Monocytes % 4 % (2-9); Neutrophils % 78 % (42-76); Platelet Estimate Normal; RBC Morphology Normal; Total Cells Counted 100
== END ==
PROVIDERS: Visit Provider Internal Medicine
DX: Z01.810 Encounter for preprocedural cardiovascular examination (principal); Z11.52 Encounter for screening for COVID-19; I25.10 Atherosclerotic heart disease of native coronary artery without angina pectoris; R94.31 Abnormal electrocardiogram [ECG] [EKG]; R94.39 Abnormal result of other cardiovascular function study
CPT/HCPCS: 36415; 80048; 85007; 85025; 86328

== ENCOUNTER 2020-03-30 09:55 | Day surgery (SDC) | payer OTHER, SELFPAY ==
[2020-03-30] VITALS (10 sets, daily range): BP systolic 115–156; BP diastolic 59–84; PULSE 63–85; RESP 12–20; TEMP 36.6; O2SAT 90–100; BMI 31.4
--- NOTE | 2020-03-30 | IR_ITS ---
APPROVED REPORT Patient Location: Outpatient PROCEDURES Left heart catheterization Left ventriculogram Selective coronary angiogram Selective engagement of the left internal mammary artery with angiography Catheter placement in the right common iliac artery Right common iliac artery unilateral antegrade angiogram Catheter placement in the right external iliac artery Right external iliac artery antegrade angiogram INDICATION Coronary artery disease, Accelerated angina pectoris, History of coronary bypass surgery, Peripheral artery disease with stenosis in the right common and external iliac artery Informed consent was obtained prior to the procedure. COMPLICATIONS NONE Estimated Blood Loss: LESS THAN 10 ML TECHNIQUE One percent lidocaine used to anesthetize the right groin. The right femoral artery was accessed via the Seldinger technique and a 5 Upper Sorbian sheath was placed in the right femoral artery. There was difficulty traversing the wire through the iliofemoral system. Once the wire was beyond the mini exchange technique was performed. A JL4 JR4 catheter were used to perform left heart catheterization left ventriculogram as well as selective engagement of left internal mammary artery. At the end of the procedure the catheter was pulled back into the right common iliac artery and the JR4 catheter was used to perform selective antegrade angiography. The catheter was then pulled back to the right external iliac artery and external iliac artery angiography was performed. At the end of the procedure the apparatus was removed the groin was reprepped closure changed sheath was removed good hemostasis was achieved using Perclose device patient was transferred to the postop holding area stable condition ANGIOGRAPHIC RESULTS The left main artery Normal The left anterior descending artery Is proximally normal and then has mid vessel stents which are subtotally occluded. Large first diagonal artery or large ramus intermedius is widely patent with mild atheromatous plaque but no stenosis greater than 10% The circumflex artery The circumflex artery is small nondominant and has a 70% stenosis and a 1 mm area in the midportion of the circumflex artery The right coronary artery Is dominant and has stents in the proximal through mid segment which are widely patent with 30% in-stent restenosis in the midportion. Distally there is 30 to 40% stenosis The BELL ventriculogram reveals Dilated ventricle with estimated ejection fraction 45 to 50% with inferior wall hypokinesis The left ventricular end-diastolic pressure 10 mmHg The left internal mammary artery is widely patent to the mid LAD Right common iliac artery has 30 to 40% nonflow-limiting stenosis The right external iliac artery has 30 to 40% nonflow-limiting stenoses IMPRESSION Coronary disease as described above Reduced ejection fraction with regional wall motion abnormality Patent LANZA to the LAD Mild to moderate nonflow limiting atheromatous plaque in the right common iliofemoral system PLAN 1. Medical management for both coronary disease and peripheral artery disease 2. Aggressive risk factor modification Electronically signed by : Mendoza Workman, 03/30/2020 13:14:37
== END 2020-03-30 16:16 | disposition home or self-care (01) ==
LOC: CATHLAB 09:56
PROVIDERS: PCP Emergency Medicine; Visit Provider Internal Medicine
DX: I25.118 Atherosclerotic heart disease of native coronary artery with other forms of angina pectoris (principal); I25.708 Atherosclerosis of coronary artery bypass graft(s), unspecified, with other forms of angina pectoris; Z95.1 Presence of aortocoronary bypass graft; Z95.820 Peripheral vascular angioplasty status with implants and grafts; I70.211 Atherosclerosis of native arteries of extremities with intermittent claudication, right leg; I65.23 Occlusion and stenosis of bilateral carotid arteries; Z79.01 Long term (current) use of anticoagulants; Z79.4 Long term (current) use of insulin; Z72.0 Tobacco use; E11.51 Type 2 diabetes mellitus with diabetic peripheral angiopathy without gangrene; I10 Essential (primary) hypertension; Z79.899 Other long term (current) drug therapy
CPT/HCPCS: 36246; 36248; 75710; 93458; 99152; C1725; C1760; C1769; C1894; J1644; Q9967

== ENCOUNTER → 2020-04-07 13:58 | Outpatient (CLI) | payer OTHER, SELFPAY ==
[2020-04-07 14:00] LABS: Microscopic, Urine URINE MICROSCOPIC (MICROSCOPIC)
[2020-04-07 14:25] LABS: Appearance,Urine CLEAR (Clear); Bilirubin,Urine Negative (Negative); Blood, Urine TRACE-I (Negative); Color,Urine YELLOW (Yellow); Glucose,Urine (UA) TRACE (Negative); Ketones,Urine Negative (Negative); Leukocyte Esterase,Urine Negative (Negative); Nitrate,Urine Negative (Negative); Protein,Urine TRACE (Negative); Urobilinogen,Urine 0.2 EU/dl (0.2)
[2020-04-07 14:27] LABS: Basophils # 0.1 K/mm3 (0-0.2); Basophils % 0.7 % (0.1-2.0); Eosinophils # 0.3 K/mm3 (0.0-0.4); Eosinophils % 2.5 % (0.1-12.0); Hematocrit 40.6 % (42.0-52.0); Hemoglobin 13.2 g/dL (14.1-18.0); Lymphocytes # 2.5 K/mm3 (0.7-4.5); Lymphocytes % 24.1 % (10-50); Mean Corpuscular HGB Conc 32.5 g/dL (31.8-35.4); Mean Corpuscular Hemoglobin 31.1 pg (27.0-31.2); Mean Corpuscular Volume 95.7 fl (80-94); Mean Platelet Volume 7.2 fl (7.4-10.4); Monocytes # 0.7 K/mm3 (0.1-1.0); Monocytes % 6.3 % (1.7-9.3); Neutrophils # 6.9 K/mm3 (1.8-7.8); Neutrophils % 66.5 % (37.0-80.0); Platelet Count 430 K/mm3 (142-424); Red Blood Count 4.25 M/mm3 (4.60-6.20); Red Cell Distribution Width 14.2 % (11.5-17.5); White Blood Count 10.4 K/mm3 (4.8-10.8)
[2020-04-07 15:18] LABS: Coronavirus 19 IgG Antibody Negative (Negative); Coronavirus 19 IgM Antibody Negative (Negative)
[2020-04-07 15:22] LABS: Anion Gap 11.9 mEq/L (5-15); Blood Urea Nitrogen 17 mg/dl (9-20); Calcium 9.6 mg/dl (8.4-10.2); Carbon Dioxide 27 mmol/L (22.0-30.0); Chloride 102 mmol/L (98-107); Estimated Glomerular Filt Rate 115 ml/min (>60); GFR (African American) 139 ML/MIN (>60); Glucose 214 mg/dl (74-100); Potassium 4.9 mmoL/L (3.5-5.1); Sodium 136 mmol/L (136-145)
== END ==
PROVIDERS: Visit Provider Surgery
DX: Z01.812 Encounter for preprocedural laboratory examination (principal); Z11.52 Encounter for screening for COVID-19; K40.90 Unilateral inguinal hernia, without obstruction or gangrene, not specified as recurrent
CPT/HCPCS: 36415; 80048; 81001; 85025; 86328

== ENCOUNTER 2020-04-10 05:18 | Day surgery (SDC) | payer OTHER, SELFPAY ==
[2020-04-08 11:39] VITALS: BMI 32.1
[2020-04-10] VITALS (13 sets, daily range): BP systolic 154–197; BP diastolic 65–86; PULSE 71–88; RESP 12–18; TEMP 36.4–37.1; O2SAT 92–98
[2020-04-10 06:45] LABS: POC Glucose,Bedside 188 (70-110)
--- NOTE | 2020-04-10 07:53 | HMH.ANESCL ---
[facility] Anesthesia Checklist - Patient Identification Patient Identification: Arm Band - Structural Data Admitted From: Home Planned Operative Procedure/s: [facility] Consent for Planned Operative Procedure(s) Verified: Yes - NPO Status Verified Time NPO: 00:00 - Additional verifications Anesthesia Reactions: No Hx Blood Transfusions: No Blood Transfusion Reaction: No - Anesthesia Plan Anesthesia Type: General [facility] History Medical History: Reports:: Coronary Artery Disease, Diabetes Mellitus Type 2, Hyperlipidemia, Hypertension, Peripheral Artery Disease Denies:: Asthma, Cancer, Congestive Heart Failure, Chronic Obstructive Pulmonary Disease (COPD), Internal Pacemaker, MRSA, Seizures *Have you ever received a pneumonia vaccine?: Yes *Have you received a flu vaccine this season?: Yes Other Medical History: Reports: Arthritis. Denies: Blood Transfusion Reaction Anesthesia experience/problems:: non Laterality Cases: Right: Carotid Endarterectomy Other Surgeries: Yes: No Previous Surgery, Angiogram, Cardiac Catheterization, Cardiac Surgery, Coronary Stent, Other. No: Pacemaker Amputation: No Fractures: No - *Social History Last grade of school completed: GED Smoking Status: Current every day smoker Tobacco Type: cigarettes # Packs/Day (cigarettes): 1 Alcohol Intake: never Substance Use Type: marijuana *Occupational Status:: disabled Housing: house Household Members: none *Travel in the last 8 weeks: None Family Hx:: No significant family history
--- NOTE | 2020-04-10 09:03 | P.OP_ITS ---
Date of procedure: 04/10/20 Pre-op Diagnosis:: Left inguinal (scrotal) hernia Post-op Diagnosis:: Chronically-incarcerated left inguinal hernia with sliding component Procedure performed:: Open left inguinal hernia repair Resection of cord and scrotal contents Surgeon:: Luke Morris MD Reconciliation Analyst(s):: Lizz Anesthesia: GETA Estimated blood loss (mL): 15 Operative findings:: Large complex chronically-incarcerated left inguinal hernia Sliding component Ingrowth adhesions to scrotal contents/testicle with vascular compromise Operative note:: After informed consent was obtained the patient was taken to the operating room and placed in the supine position. General anesthesia was induced and his abdomen/groin/scrotum was prepped and draped in a sterile fashion. After infiltration with local anesthetic a left oblique groin incision was made. Dissection was taken through Perlita's fascia to the level of the external aponeurosis. The external aponeurosis was sharply opened to the level of the external ring. Evaluation of the contents of the canal revealed a chronically- incarcerated hernia with a large portion of the sigmoid colon densely adhered into the scrotum. Careful elevation of the canal contents was utilized with careful dissection and retraction to free the incarcerated hernia/sigmoid colon. As dissection continued more distally the adhesions were noted to be very dense and ingrowth was noted of the sac/adhesions and the cord structures/scrotal contents/testicle. Vascular compromise to the testicle was noted and the decision was made to resect the cord and scrotal contents/testicle. This tissue was carefully elevated as dissection continued with electrocautery. The cord and scrotal contents were passed off for pathologic evaluation. The proximal portion was controlled with a combination of suture ligation (Vicryl) and electrocautery. The very thin sac was identified and carefully opened with Metzenbaum scissors. A sliding component was confirmed. The sac was closed with Vicryl suture. The sigmoid colon was carefully returned to the abdominal cavity with inversion of the sac. And extra-large PerFix plug was secured in position with interrupted Ethibond. The PerFix overlay at the end was secured to the shelving edge inferiorly and fascial margin superiorly with interrupted Ethibond. The external aponeurosis was reapproximated with running Vicryl. Perlita's fascia was reapproximated in a similar manner and skin was then closed with 4-0 Monocryl in a running subcuticular fashion. Steri-Strips were applied and the patient was transferred to recovery in stable condition after extubation. Condition: stable Disposition: PACU Specimens:: Cord and scrotal contents Complications:: Resection of cord and scrotal contents required secondary to ingrowth adhesions and vascular compromise
[2020-04-10 12:18] LABS: Microscopic,Cath URINE MICROSCOPIC (MICROSCOPIC)
[2020-04-10 12:54] LABS: Appearance,Urine/Cath CLEAR (Clear); Bilirubin,Cath Negative (Negative); Blood, Urine/Cath TRACE-L (Negative); Color,Urine/Cath YELLOW (Yellow); Glucose,Urine/Cath (UA) Negative (Negative); Ketones,Urine/Cath Negative (Negative); Leukocyte Esterase,Cath Negative (Negative); Nitrate,Cath Negative (Negative); Protein,Urine/Cath Negative (Negative); Urobilinogen,Cath 0.2 EU/dl (0.2)
[2020-04-10 13:23] LABS: RBC,Urine/Cath Occasional # /hpf (0-3); WBC,Urine/Cath Occasional #/hpf (0-3)
--- NOTE | 2020-04-10 17:45 | P.PN_ITS ---
[facility] Anesthesia Record Part II Discharge Time: 09:54 Destination: Surgical Day Care (OP Surgery) PACU nurse assessment reviewed?: Yes Patient Condition:: Good Anesthesia Complications:: None Swallowing reflex intact?: Yes Cyanosis?: No Blood Pressure: 154/66 Pulse Rate: 77 Temperature: 98.8 F Mental Status: Alert & Oriented Pain level:: 0 Nausea and/or vomitting:: None Intake, IV Amount: 0
== END 2020-04-10 11:06 | disposition home or self-care (01) ==
LOC: OR 05:20
PROVIDERS: PCP Emergency Medicine; Visit Provider Surgery
PROC: (CPT 49507; principal; 2020-04-10 07:30)
DX: K40.90 Unilateral inguinal hernia, without obstruction or gangrene, not specified as recurrent (principal); N44.8 Other noninflammatory disorders of the testis; I25.10 Atherosclerotic heart disease of native coronary artery without angina pectoris; E11.9 Type 2 diabetes mellitus without complications; E78.5 Hyperlipidemia, unspecified; I10 Essential (primary) hypertension; I73.9 Peripheral vascular disease, unspecified; M19.90 Unspecified osteoarthritis, unspecified site; Z72.0 Tobacco use; Z79.82 Long term (current) use of aspirin; Z79.4 Long term (current) use of insulin; Z79.899 Other long term (current) drug therapy
CPT/HCPCS: 49507; 54640; 81001; 82962; 96374; J2405

== ENCOUNTER → 2020-07-24 09:11 | Outpatient (CLI) | payer OTHER, SELFPAY ==
[2020-07-24 09:35] LABS: Basophils % 0.3 % (0.1-2.0); Eosinophils # 0.1 K/mm3 (0.0-0.4); Eosinophils % 0.5 % (0.1-12.0); Hematocrit 37.9 % (42.0-52.0); Hemoglobin 12.9 g/dL (14.1-18.0); Lymphocytes # 1.4 K/mm3 (0.7-4.5); Lymphocytes % 10.2 % (10-50); Mean Corpuscular HGB Conc 33.9 g/dL (31.8-35.4); Mean Corpuscular Hemoglobin 30.1 pg (27.0-31.2); Mean Corpuscular Volume 88.7 fl (80-94); Mean Platelet Volume 7.4 fl (7.4-10.4); Monocytes # 0.7 K/mm3 (0.1-1.0); Monocytes % 4.9 % (1.7-9.3); Neutrophils # 11.6 K/mm3 (1.8-7.8); Neutrophils % 84.1 % (37.0-80.0); Platelet Count 408 K/mm3 (142-424); Red Blood Count 4.28 M/mm3 (4.60-6.20); Red Cell Distribution Width 13.6 % (11.5-17.5); White Blood Count 13.8 K/mm3 (4.8-10.8)
--- NOTE | 2020-07-24 09:36 | XR_ITS ---
PROCEDURE: XR WRIST RT MIN 3V CLINICAL INDICATION: RT wrist pain COMPARISON: No exams were available for comparison FINDINGS: No fracture or dislocation. No lytic or blastic change. There is normal mineralization. The joint spaces are well-preserved. No significant degenerative/arthritic changes. No erosive changes evident. Other findings:There is minimal chondrocalcinosis of the triangular fibrocartilage. An accessory ossification center is present at the tip of the ulnar styloid. Mild prominence of the scapholunate joint space at 3 mm. IMPRESSION: Mild chondrocalcinosis of the triangular fibrocartilage Mild prominence of the scapholunate joint space which could be seen with ligamentous injury Dictated by: Dakota Quach MD 07/24/2020 10:38 Dakota Quach MD in [place] 07/24/2020 10:38
[2020-07-24 09:54] LABS: Hemoglobin A1C 9.1 % (4.0-6.0)
[2020-07-24 10:13] LABS: Alanine Aminotransferase 23 U/L (12-78); Albumin Level 4.2 g/dl (3.5-5.0); Albumin/Globulin Ratio 1.5 (1.1-1.8); Alkaline Phosphatase 107 U/L (38-126); Anion Gap 11.9 mEq/L (5-15); Aspartate Amino Transferase 17 U/L (17-59); Bilirubin,Total 0.3 mg/dl (0.2-1.3); Blood Urea Nitrogen 21 mg/dl (9-20); Calcium 9.8 mg/dl (8.4-10.2); Carbon Dioxide 22 mmol/L (22.0-30.0); Chloride 104 mmol/L (98-107); Chol/HDL Ratio 4.4 (1-3.5); Cholesterol 186 mg/dl (140-200); Estimated Glomerular Filt Rate 98 ml/min (>60); GFR (African American) 119 ML/MIN (>60); Globulin 2.8 g/dL (1.3-3.2); Glucose 248 mg/dl (74-100); HDL Cholesterol 42 mg/dl (40-60); Potassium 4.9 mmoL/L (3.5-5.1); Sodium 133 mmol/L (136-145); Triglycerides 120 mg/dl (30-150); VLDL Cholesterol 24 mg/dL (0-40)
[2020-07-24 10:23] LABS: Direct LDL Cholesterol 116.96 mg/dL (100-129)
[2020-07-24 10:31] LABS: T4 (Thyroxine) 6.1 ug/dl (5.53-11.0)
[2020-07-24 10:44] LABS: Thyroid Stimulating Hormone 0.73 uIU/mL (0.465-4.68)
[2020-07-24 11:39] LABS: Creatinine,Urine Random 99 mg/dL (Not Estab.)
[2020-07-24 11:59] LABS: Microalbumin/Creatinine Ratio 196.4
== END ==
PROVIDERS: Visit Provider Nurse Practitioner Family
DX: E11.9 Type 2 diabetes mellitus without complications (principal); R53.83 Other fatigue; G56.01 Carpal tunnel syndrome, right upper limb; Z79.4 Long term (current) use of insulin; Z79.899 Other long term (current) drug therapy
CPT/HCPCS: 36415; 73110; 80053; 80061; 82043; 82570; 83036; 84436; 84443; 85025

== ENCOUNTER 2020-07-24 10:52 | Outpatient (RCR) | payer OTHER, SELFPAY | END 2020-07-24 11:25 | disposition home or self-care (01) | LOC: OT 10:52 | PROVIDERS: Visit Provider Orthopaedic Surgery | DX: G56.01 Carpal tunnel syndrome, right upper limb (principal); M54.2 Cervicalgia | CPT/HCPCS: 97763 ==

== ENCOUNTER 2020-08-19 10:00 | Outpatient (RCR) | payer OTHER, SELFPAY ==
--- NOTE | 2020-07-29 08:58 | HMH.PTOPEV ---
PT Outpatient Evaluation Rehab PT Outpatient Evaluation Start: 07/29/20 08:48 Freq: Status: Active Protocol: Document 07/29/20 08:48 LAZAROSON (Rec: 07/29/20 08:58 LAZAROSON [id number]) Electronically Signed By Mark David PT 07/29/20 08:48 Outpatient Therapy Subjective History Subjective History This is the initial Physical Therapy evaluation for Mono Bobby. Pt is a 60 y/o male referred to PT for c/o R sided neck, upper trapezius pain and RUE paresthesia. Pt reprots S&S began ~ 2-4 months ago w/ insidious onset. Pt reports parestehsis and pain begin when he is playing games on his laptop . Pt reports numbness will run down his arm and then relieve itself rather quickly. Pt does reports his RUE will go numb if he sleeps on it but will go away with movement. Pt reports no lasting paresthesia and only lasts for a few seconds Chief Complaint Pain,Paresthesia Symptom Type Ache,Numbness Symptoms Relieved By Rest/Positioning,Shaking Symptoms Aggravated By Sitting Prior Functional Limitations None Current Functional Limitations Desk Work/Reading Symptom Description Intermittent Level of pain today (0-10) 0 Pain scale - at its best (0-10) 0 Pain scale - at its worst (0-10) 5 Cervical Eval Posture Head/C-Spine Posture Sitting Position C-Spine Flattened AROM Cervical Spine Extension Active Range of 45 Motion (degrees) Cervical Spine Flexion Active Range of 50 Motion (degrees) Cervical Spine Right Lateral Flexion 35 Active Range of Motion (degrees) Cervical Spine Left Lateral Flexion 35 Active Range of Motion (degrees) MMT Bilateral Deltoid (C5) 4 Good Biceps Brachii Strength Grade 4 Good Wrist Extension Strength Grade 4 Good Triceps Brachii Strength Grade 4 Good Wrist Flexion Strength Grade 4 Good Special Test C-Spine Foraminal Compression (Spurling) Negative Left,Positive Right Test C-Spine Foraminal Distraction Test Positive C-Spine Compression Test Negative Left,Negative Right Outpatient Therapy Assessment Impairments Problems/Impairmments Impaired Recreational Activities,Impaired Desk/
== END 2020-08-19 10:05 | disposition home or self-care (01) ==
LOC: PT 10:00
PROVIDERS: PCP Emergency Medicine; Visit Provider Orthopaedic Surgery
DX: M54.2 Cervicalgia (principal); G56.01 Carpal tunnel syndrome, right upper limb
CPT/HCPCS: 97010; 97012; 97014; 97110; 97163; G0283

== ENCOUNTER → 2020-09-21 12:44 | Outpatient (CLI) | payer OTHER, SELFPAY ==
--- NOTE | 2020-09-21 12:45 | US_ITS ---
PROCEDURE: US TESTICULAR CLINICAL INDICATION: Left testicular swelling, right testicular pain COMPARISON: CT CT ABDOMEN PELVIS WO [facility] from 03/24/2020 FINDINGS: The right epididymis is slightly enlarged at 1.3 by 1.5 cm with some heterogeneous echogenicity. The right testicle is 2.7 x 1.5 x 2 cm. There is blood flow in the right testicle. No testicular mass is evident. The left scrotum is enlarged. The scrotal contents shows multiple cystic areas of echogenicity with internal septa. These areas do not appear to peristalsis. A normal testicle is not able to be visualized. No evidence of testicle in the inguinal canal on the left. There was 1 solid appearing area anteriorly well oval in nature measuring 1.4 x 0.5 cm but did not have a testicular appearance. I suppose this could have represented a hypoplastic/atrophic testicle. IMPRESSION: 1. Possible right-sided epididymitis 2. Enlarged left hemiscrotum with complex cystic appearance with multiple internal septations. This could represent postoperative hematoma or complex seroma with multiple synechiae. A normal left testicle is not identified. Recurrence hernia with multiple bowel loops is felt to be less likely based on the appearance. Dictated by: Dakota Quach MD 09/22/2020 15:10 Dakota Quach MD in [place] 09/22/2020 15:10
== END ==
PROVIDERS: PCP Nurse Practitioner Family; Visit Provider Surgery
DX: N50.811 Right testicular pain (principal); N50.812 Left testicular pain
CPT/HCPCS: 76870

== ENCOUNTER → 2020-10-15 07:41 | Outpatient (CLI) | payer OTHER, SELFPAY ==
--- NOTE | 2020-10-15 07:52 | XR_ITS ---
PROCEDURE: XR CHEST 2V CLINICAL HISTORY: pre-op exam COMPARISON: CR CXR1 CHEST-PORTABLE from 04/01/2014 CR CXR1 CHEST-PORTABLE from 09/14/2015 CR CXR CHEST(2 VIEWS-NOT PORTABLE) from 09/13/2016 FINDINGS: Median sternotomy and mediastinal clips are noted. There is subsegmental atelectasis noted in the left lower zone. Bilateral minor chronic interstitial changes are noted. No lobar consolidation, pleural effusions or pneumothorax. Cardiac size and central pulmonary vasculature within normal limits. Coronary arterial stents noted. Vascular calcification is noted. Degenerative changes of the visualized thoracic spine IMPRESSION: . status post CABG. Left basal atelectasis. Minor chronic interstitial changes. Dictated by: Roxana Rose 10/15/2020 08:36 Roxana Rose in [place] 10/15/2020 08:36
[2020-10-15 08:02] LABS: Basophils # 0.1 K/mm3 (0-0.2); Basophils % 0.7 % (0.1-2.0); Eosinophils # 0.2 K/mm3 (0.0-0.4); Eosinophils % 2.5 % (0.1-12.0); Hematocrit 36.4 % (42.0-52.0); Hemoglobin 12.2 g/dL (14.1-18.0); Lymphocytes # 2.3 K/mm3 (0.7-4.5); Lymphocytes % 24.8 % (10-50); Mean Corpuscular HGB Conc 33.6 g/dL (31.8-35.4); Mean Corpuscular Hemoglobin 30.5 pg (27.0-31.2); Mean Platelet Volume 6.9 fl (7.4-10.4); Monocytes # 0.6 K/mm3 (0.1-1.0); Monocytes % 6.3 % (1.7-9.3); Neutrophils # 6.2 K/mm3 (1.8-7.8); Neutrophils % 65.7 % (37.0-80.0); Platelet Count 330 K/mm3 (142-424); White Blood Count 9.4 K/mm3 (4.8-10.8)
--- NOTE | 2020-10-15 08:15 | ECG_ITS ---
APPROVED REPORT Exam: Resting ECG HR:60 bpm ECG Measurements Heart Rate 60 AXES NJ 196 P 16 QRSd 148 QRS 33 QT 416 T 30 QTc 416 Conclusion Normal sinus rhythm Right bundle branch block Abnormal ECG Electronically signed by : Maxwell Rodriguez, 10/15/2020 14:28:26
[2020-10-15 08:37] LABS: Anion Gap 12.1 mEq/L (5-15); Blood Urea Nitrogen 14 mg/dl (9-20); Calcium 8.8 mg/dl (8.4-10.2); Carbon Dioxide 25 mmol/L (22.0-30.0); Chloride 106 mmol/L (98-107); Estimated Glomerular Filt Rate 115 ml/min (>60); GFR (African American) 139 ML/MIN (>60); Glucose 122 mg/dl (74-100); Potassium 4.1 mmoL/L (3.5-5.1); Sodium 139 mmol/L (136-145)
[2020-10-15 08:46] LABS: Hemoglobin A1C 7.9 % (4.0-6.0)
== END ==
PROVIDERS: Visit Provider Orthopaedic Surgery
DX: E11.9 Type 2 diabetes mellitus without complications (principal); E78.5 Hyperlipidemia, unspecified; G56.01 Carpal tunnel syndrome, right upper limb; Z87.891 Personal history of nicotine dependence; Z79.4 Long term (current) use of insulin
CPT/HCPCS: 36415; 71046; 80048; 83036; 85025; 93005

== ENCOUNTER → 2020-10-20 07:38 | Outpatient (CLI) | payer OTHER, SELFPAY | PROVIDERS: Visit Provider Orthopaedic Surgery | DX: Z01.818 Encounter for other preprocedural examination (principal); G56.01 Carpal tunnel syndrome, right upper limb; Z20.822 Contact with and (suspected) exposure to COVID-19 | CPT/HCPCS: U0003 ==

== ENCOUNTER 2020-10-22 06:01 | Day surgery (SDC) | payer OTHER, SELFPAY ==
[2020-10-15 12:35] VITALS: BMI 33.6
[2020-10-22 06:22] VITALS: BP 154/69; PULSE 88; RESP 20; TEMP 36.4; O2SAT 95
[2020-10-22 06:37] LABS: POC Glucose,Bedside 150 (70-110)
--- NOTE | 2020-10-22 07:09 | P.PN_ITS ---
[facility] Anesthesia Checklist - Patient Identification Patient Identification: Arm Band - Structural Data Admitted From: Home Planned Operative Procedure/s: Carpal tunnel release Consent for Planned Operative Procedure(s) Verified: Yes - NPO Status Verified Time NPO: 00:00 - Additional verifications Anesthesia Reactions: No Hx Blood Transfusions: No Blood Transfusion Reaction: No - Airway Assessment C-Spine Mobility Assessed: Yes TMJ Mobility Assessed: Yes Dentition: Edentulous - Neurological Assessment Level of Consciousness: Awake Hx Seizures: No Numbness or tingling in extremities: Yes - Anesthesia Plan Anesthesia Risk discussed: Yes Anesthesia Plan: Verified ASA Class: III Anesthesia Type: Local & MAC [facility] History Medical History: Reports:: Coronary Artery Disease, Diabetes Mellitus Type 2, Hyperlipidemia, Hypertension, Myocardial Infarction, Peripheral Artery Disease Denies:: Asthma, Cancer, Congestive Heart Failure, Chronic Obstructive Pulmonary Disease (COPD), Diabetes Mellitus Type 1, Internal Pacemaker, MRSA, Seizures *Have you ever received a pneumonia vaccine?: Yes *Have you received a flu vaccine this season?: Yes Other Medical History: Reports: Arthritis. Denies: Blood Transfusion Reaction Anesthesia experience/problems:: None Laterality Cases: Right: Carotid Endarterectomy Other Surgeries: Yes: No Previous Surgery, Angiogram, Cardiac Catheterization, Cardiac Surgery, Colonoscopy, Coronary Stent, Hernia Repair, Other. No: Pacemaker Amputation: No Fractures: Yes - *Social History Last grade of school completed: GED Smoking Status: Former smoker Tobacco Type: cigarettes # Packs/Day (cigarettes): 1 Alcohol Intake: never Alcohol Intake Frequency:: holidays/special occasions only Substance Use Type: marijuana Last Used Substance: days (ago) (Yesterday) *Occupational Status:: disabled Housing: house Household Members: none *Travel in the last 8 weeks: None Family Hx:: No significant family history
[2020-10-22 08:50] VITALS: BP 119/63; PULSE 82; RESP 16; TEMP 36.1; O2SAT 91
[2020-10-22 09:00] VITALS: BP 123/70; PULSE 84; RESP 16; O2SAT 95
[2020-10-22 09:10] VITALS: BP 160/73; PULSE 80; RESP 16; O2SAT 92
[2020-10-22 09:20] VITALS: BP 190/96; PULSE 78; RESP 16; O2SAT 95
--- NOTE | 2020-10-22 09:30 | HMH.OPNOTE ---
Date of procedure: 10/22/20 Pre-op Diagnosis:: Carpal tunnel syndrome, right wrist Post-op Diagnosis:: Same Procedure performed:: Open carpal tunnel release, right wrist Surgeon:: Clinton Rose MD PYROTECHNICS PRESS TENDER:: David Cleary Anesthesia: MAC, local (10 cc of 0.5% Marcaine with epinephrine) Estimated blood loss (mL): 1 Clinical Note:: Patient is a 60-year-old male with right carpal tunnel syndrome with long-standing symptoms. Previously EMG/NCV studies confirmed carpal tunnel syndrome on the right side. Patient is having significant and disabling symptoms and has failed to respond adequately to conservative management.]. Therefore, carpal tunnel release surgery is necessary to relieve symptoms, preserve the remaining fibers of the median nerve, improve function and decrease the pain, paresthesias and weakness and to prevent permanent nerve damage. Please refer to my office note for full details. Operative findings:: The intraoperative findings showed the median nerve to be tightly compressed and hyperemic. The flexor retinaculum was noted to be thick and tight. There was mild synovitis in the carpal tunnel. There was no evidence of any space-occupying lesions within the carpal tunnel. Operative note:: On the day of the surgery the patient was met in the preoperative area. Patient was positively identified and the operative site was marked and initialed by me. A physical examination was performed and the chart was updated. I have again discussed the procedure, risks and benefits and alternatives with the patient. The complications discussed include but are not limited to- bleeding, injury to nerves, blood vessels and tendons, infection, wound dehiscence, incomplete relief/continued pain, persistent numbness, palmar hypersensitivity, pillar pain, DVT/PE, complex regional pain syndrome(CRPS), worsening of nerve damage, failure of the condition to improve, incomplete return of function, bowstringing of tendons, weakness of air quality engineer strength, recurrence, failure of the surgery to accomplish the desired goals, decreased use of the hand, loss of use of the arm, loss of the hand or arm, loss of life. Likely need for further surgery in the future has been discussed. I've indicated to the patient where the proposed incision would be made and also discussed the possibility of extending the incision if needed to accomplish an effective release. We have discussed how the goal of surgery is to protect the fibers which have remained healthy and hopefully reverse the symptoms of the fibers which are compromised but still recoverable. We have explained that, fibers that are permanently damaged will not recover. Patient asked appropriate questions and all have been answered by me. Patient wished to proceed with the surgery. Patient understood the risks, agreed to proceed with surgery and no guarantees or assurances were given or implied. The patient was brought to the operating room and placed supine on the operating table. The right upper extremity was placed over a side table. All the bony prominences were well-padded. The patient had a MAC anesthesia administered by the chief human resources officer. A well-padded tourniquet cuff was placed over the upper arm. The right upper extremity was prepped and draped in the usual sterile fashion. A preprocedure timeout was performed as per hospital policy. Administration of prophylactic antibiotics was confirmed with the chief human resources officer. The skin incision was marked using the Mendez's landmarks, just ulnar to the thenar crease. The skin and soft tissue around the proposed incision was then infiltrated with 10 mL of 0.5 percent Marcaine with epinephrine for local anesthesia. The limb was exsanguinated with the Esmarch bandage and tourniquet was inflated to 250 mmHg. Please see nursing records for the total tourniquet time. Mendez's landmarks were utilized and a skin incision was made parallel and just ulnar to the thenar crease with a 15 blade. Blunt tissue dis
[2020-10-22 09:45] VITALS: BP 172/83; PULSE 80; RESP 16; O2SAT 95
== END 2020-10-22 09:45 | disposition home or self-care (01) ==
LOC: OR 06:03
PROVIDERS: PCP Nurse Practitioner Family; Visit Provider Orthopaedic Surgery
PROC: (CPT 64721; principal; 2020-10-22 07:30)
DX: G56.02 Carpal tunnel syndrome, left upper limb (principal); E11.9 Type 2 diabetes mellitus without complications
CPT/HCPCS: 64721; 82962; 96374

== ENCOUNTER → 2021-06-01 08:22 | Outpatient (CLI) | payer OTHER, SELFPAY ==
--- NOTE | 2021-06-01 09:09 | XR_ITS ---
FINAL REPORT CLINICAL HISTORY: right shoulder pain, no recent injury FINDINGS: RIGHT SHOULDER: 3 views of the right shoulder were obtained. There is no acute fracture or dislocation. There is moderate degenerative change of the acromioclavicular joint. There is mild degenerative change of the glenohumeral joint. There is a chronic calcification superior to the acromioclavicular joint. IMPRESSION: Mild moderate degenerative change. Reviewed, Interpreted and Dictated by Jerry Rausch III, MD Transcribed by Kassie Torrez Authenticated by Jerry Rausch III, MD on 06/01/2021 11:09:05 AM [facility]
[2021-06-01 09:14] LABS: Basophils # 0.1 K/mm3 (0-0.2); Eosinophils # 0.2 K/mm3 (0.0-0.4); Eosinophils % 1.4 % (0.1-12.0); Hematocrit 39.1 % (42.0-52.0); Hemoglobin 12.7 g/dL (14.1-18.0); Lymphocytes # 1.9 K/mm3 (0.7-4.5); Lymphocytes % 16.9 % (10-50); Mean Corpuscular HGB Conc 32.4 g/dL (31.8-35.4); Mean Corpuscular Hemoglobin 31.5 pg (27.0-31.2); Mean Corpuscular Volume 97.1 fl (80-94); Mean Platelet Volume 7.4 fl (7.4-10.4); Monocytes # 0.6 K/mm3 (0.1-1.0); Monocytes % 5.5 % (1.7-9.3); Neutrophils # 8.3 K/mm3 (1.8-7.8); Neutrophils % 75.2 % (37.0-80.0); Platelet Count 348 K/mm3 (142-424); Red Blood Count 4.03 M/mm3 (4.60-6.20); Red Cell Distribution Width 13.7 % (11.5-17.5)
[2021-06-01 09:45] LABS: Hemoglobin A1C 7.7 % (4.0-6.0)
[2021-06-01 10:37] LABS: Alanine Aminotransferase 22 U/L (12-78); Albumin Level 3.9 g/dl (3.5-5.0); Albumin/Globulin Ratio 1.5 (1.1-1.8); Alkaline Phosphatase 99 U/L (38-126); Anion Gap 11.8 mEq/L (5-15); Aspartate Amino Transferase 18 U/L (17-59); Bilirubin,Total 0.5 mg/dl (0.2-1.3); Blood Urea Nitrogen 17 mg/dl (9-20); Carbon Dioxide 26 mmol/L (22.0-30.0); Chloride 105 mmol/L (98-107); Chol/HDL Ratio 4.8 (1-3.5); Cholesterol 144 mg/dl (140-200); Estimated Glomerular Filt Rate 137 ml/min (>60); GFR (African American) 165 ML/MIN (>60); Globulin 2.6 g/dL (1.3-3.2); Glucose 128 mg/dl (74-100); HDL Cholesterol 30 mg/dl (40-60); Potassium 4.8 mmoL/L (3.5-5.1); Sodium 138 mmol/L (136-145); Total Protein,Serum 6.5 g/dl (6.3-8.2); Triglycerides 114 mg/dl (30-150); VLDL Cholesterol 23 mg/dL (0-40)
[2021-06-01 10:48] LABS: Direct LDL Cholesterol 84.44 mg/dL (100-129)
[2021-06-01 10:55] LABS: T4 (Thyroxine) 6.3 ug/dl (5.53-11.0)
[2021-06-01 11:08] LABS: Thyroid Stimulating Hormone 1.32 uIU/mL (0.465-4.68)
== END ==
PROVIDERS: PCP Nurse Practitioner Family; Visit Provider Nurse Practitioner Family
DX: M25.511 Pain in right shoulder (principal); E11.9 Type 2 diabetes mellitus without complications; Z79.4 Long term (current) use of insulin
CPT/HCPCS: 36415; 73030; 80053; 80061; 82043; 83036; 84436; 84443; 85025

== ENCOUNTER → 2021-06-25 15:38 | Outpatient (CLI) | payer OTHER, SELFPAY ==
--- NOTE | 2021-06-25 15:45 | MR_ITS ---
FINAL REPORT CLINICAL HISTORY: R Shoulder Pain. weakness in arm. shoulder pain that goes into neck. no injury or trauma. FINDINGS: Multiplanar MR imaging of the right shoulder was performed without contrast. There is supraspinatus and infraspinatus tendinosis. There is moderate degenerative change of the AC joint with edema in the distal clavicle and acromion. A small amount of fluid is seen in the subacromial/subdeltoid bursa. There is a posterior labral tear. There is increased signal in the superior labrum consistent with a SLAP tear. There is a small partial tear of the long head of the biceps tendon. No significant glenohumeral joint effusion is seen. There is mild degenerative change of the glenohumeral joint. There is a subchondral cyst in the humeral head. The musculature is intact. There is no evidence of soft tissue mass. IMPRESSION: Posterior labral tear. SLAP tear of the superior labrum. Moderate AC joint arthrosis with edema in the distal clavicle and acromion. Supraspinatus and infraspinatus tendinosis. Small partial tear of the long head of the biceps tendon. Mild glenohumeral joint degenerative change. Subchondral cyst in the humeral head. Reviewed, Interpreted and Dictated by Jerry Rausch III, MD Transcribed by Sukhjinder Hauser Authenticated by Jerry Rausch III, MD on 06/25/2021 04:57:30 PM [facility]
== END ==
PROVIDERS: PCP Nurse Practitioner Family; Visit Provider Nurse Practitioner Family
DX: M79.601 Pain in right arm (principal)
CPT/HCPCS: 73221

== ENCOUNTER → 2021-08-02 14:59 | Outpatient (POV) | payer OTHER, SELFPAY | PROVIDERS: Visit Provider Internal Medicine Nephrology | DX: Z00.00 Encounter for general adult medical examination without abnormal findings (principal) ==

== ENCOUNTER 2021-09-29 19:44 | Inpatient (IN) | payer OTHER, SELFPAY ==
[2021-09-29 19:45] VITALS: BP 190/84; PULSE 90; RESP 18; TEMP 36.7; O2SAT 98; BMI 32.8
--- NOTE | 2021-09-29 19:45 | ECG_ITS ---
APPROVED REPORT Exam: Resting ECG HR:105 bpm ECG Measurements Heart Rate 105 AXES DC 186 P 62 QRSd 139 QRS 67 QT 324 T 56 QTc 385 Conclusion SINUS TACHYCARDIA RIGHT BUNDLE BRANCH BLOCK [120+ ms QRS DURATION, UPRIGHT V1, 40+ ms S IN I/aVL/V4/V5/V6] ABNORMAL ECG UNCONFIRMED REPORT Electronically signed by : Maxwell Rodriguez MD 09/30/2021 17:41:04
--- NOTE | 2021-09-29 19:45 | XR_ITS ---
PROCEDURE INFORMATION: Exam: XR Chest Exam date and time: 09/29/21 07:46 PM Age: 61 years old Clinical indication: Pain; Chest pressure; Prior surgery; Additional info: Cp TECHNIQUE: Imaging protocol: Radiologic exam of the chest. Views: 1 view. COMPARISON: CR XR CHEST 2V 10/15/20 07:55 AM FINDINGS: Lungs: Unremarkable. No consolidation. Pleural spaces: Unremarkable. No pleural effusion. No pneumothorax. Heart/Mediastinum: CABG. Bones/joints: Unremarkable. IMPRESSION: No acute cardiopulmonary findings.
[2021-09-29 19:48] VITALS: BMI 32.8
[2021-09-29 19:57] LABS: Basophils % 0.3 % (0.1-2.0); Eosinophils # 0.2 K/mm3 (0.0-0.4); Eosinophils % 1.9 % (0.1-12.0); Hematocrit 35.9 % (42.0-52.0); Hemoglobin 12.5 g/dL (14.1-18.0); Lymphocytes # 2.9 K/mm3 (0.7-4.5); Lymphocytes % 24.4 % (10-50); Mean Corpuscular HGB Conc 34.9 g/dL (31.8-35.4); Mean Corpuscular Hemoglobin 31.7 pg (27.0-31.2); Mean Corpuscular Volume 90.8 fl (80-94); Mean Platelet Volume 6.7 fl (7.4-10.4); Monocytes # 0.9 K/mm3 (0.1-1.0); Monocytes % 7.3 % (1.7-9.3); Neutrophils # 7.7 K/mm3 (1.8-7.8); Neutrophils % 66.1 % (37.0-80.0); Platelet Count 409 K/mm3 (142-424); Red Blood Count 3.95 M/mm3 (4.60-6.20); Red Cell Distribution Width 13.3 % (11.5-17.5); White Blood Count 11.7 K/mm3 (4.8-10.8)
[2021-09-29 20:13] LABS: Anion Gap 14.1 mEq/L (5-15); Blood Urea Nitrogen 23 mg/dl (9-20); Carbon Dioxide 26 mmol/L (22.0-30.0); Chloride 103 mmol/L (98-107); Creatinine Clearance Estimated 103 mL/min (50-200); Estimated Glomerular Filt Rate 86 ml/min (>60); GFR (African American) 103 ML/MIN (>60); Glucose 176 mg/dl (74-100); Potassium 4.1 mmoL/L (3.5-5.1); Sodium 139 mmol/L (136-145)
--- NOTE | 2021-09-29 20:16 | HMH.EDCP ---
ED Disposition Clinical Impression: Angina at rest, Elevated troponin, Right bundle branch block Diabetes mellitus Qualifiers: Diabetes mellitus type: type 1 Diabetes mellitus complication status: with other specified complication Qualified Code(s): E10.69 - Type 1 diabetes mellitus with other specified complication Disposition: Admitted as Observation Condition on Discharge: Serious - Critical Care Critical Care Time: No Attestation: On , the high probability of a clinically significant, sudden or life threatening deterioration of the following system(s) required my full and direct attention, intervention and personal management. The time I documented below is in addition to time spent performing reported procedures but includes the following listed in this critical care notation. Medical Decision Making - Medical Records Medical records reviewed: Yes: I reviewed the patient's medical records. - Quan Inquiry Pt receiving controlled substance: No Vital Signs: 09/29/21 19:45 Temperature 98.1 F Temperature Source Oral Pulse Rate [Right] 90 Respiratory Rate 18 Blood Pressure [Right Arm] 190/84 H Blood Pressure Mean [Right Arm] 119 02 Sat by Pulse Oximetry 98 - Lab Data Lab results reviewed: Yes: I reviewed the patient's lab results. Lab Results 09/29/21 19:45: WBC 11.7 H, RBC 3.95 L, Hgb 12.5 L, Hct 35.9 L, MCV 90.8, MCH 31.7 H, MCHC 34.9, RDW 13.3, Plt Count 409, MPV 6.7 L, Neut % (Auto) 66.1, Lymph % (Auto) 24.4, [place] % (Auto) 7.3, Eos % (Auto) 1.9, Baso % (Auto) 0.3, Neut # (Auto) 7.7, Lymph # (Auto) 2.9, [place] # (Auto) 0.9, Eos # (Auto) 0.2, Baso # (Auto) 0.0 Result diagrams: 09/29/21 19:45 Orders (Tests/Meds): ED MEDICATIONS Discontinued Medications Generic Name Dose Route Start Last Admin Trade Name Freq PRN Reason Stop Dose Admin Aspirin 324 mg 09/29/21 19:50 09/29/21 20:00 Aspirin 81mg Chewable Tablet PO 09/29/21 19:51 324 mg ONCE ONE Administration Nitroglycerin 0.4 mg 09/29/21 19:50 09/29/21 20:00 Nitroglycerin 0.4mg Sl Tablet SL 09/29/21 19:51 0.4 mg ONCE ONE Administration ORDERS Category Date Time Status Chest XR -- portable [XR chest portable] Stat Exams 09/29/21 19:45 Taken Basic Metabolic Panel Stat Lab 09/29/21 19:45 Received Troponin I Q3H Lab 09/29/21 23:00 Ordered Troponin I Q3H Lab 09/30/21 02:00 Ordered Troponin I Stat Lab 09/29/21 19:45 Received - Radiology Data #1 Image(s): Chest Image Reviewed: Yes I have reviewed radiologist's interpretation Preliminary Findings: Normal/NAD - ECG Data Tracing #1 Normal Sinus Rhythm: Yes Ischemic changes: non-specific ST-T wave changes Conduction abnormalities present: LAFB, RBBB ECG compared to prior tracings: there are no significant changes Medical Decision Narrative: pt with known angina and cad - with acute angina at rest - has been compliant with meds but has sx consistent with angina and elevated trop Chest Pain HPI - General Chief Complaint: Chest Pain Stated Complaint: CP Time Seen by Provider: 09/29/21 20:00 Mode of Arrival: Ambulatory Source of Information: Patient, Medical Record Limitations: No Limitations Description of Symptoms (Recalled from ER Triage Doc. by RN): pt c/o lt arm pain radiating up into neck 30 mins prior to arrival - History of Present Illness HPI narrative: pt with hx of cad with stents and prev cabg presents to the ed with episode of lt upper ext pain and jaw pain relieved with ntg - -similiar pain with prev mi MD complaint: chest pain indicative of cardiac Onset (ago): hour(s) Duration: now resolved Activity at onset: during rest Pain location: left chest Severity: similar to previous episodes Quality: tightness Pain radiation: LUE, jaw/teeth Relieving factors: nitroglycerin Risk Factors for CAD: Hypertension, Hypercholesterolemia, Family Hx of CAD, Diabetes Treatments prior to or on arrival for Cardiac Chest Pain: n
[2021-09-29 20:24] LABS: Coronavirus 19, PCR Not Detected (NotDetected); Influenza A, PCR Not Detected (NotDetected); Influenza B, PCR Not Detected (NotDetected)
[2021-09-29 20:25] LABS: Troponin I 0.06 ng/ml (0.00-0.034)
[2021-09-29 20:55] VITALS: BP 156/71; BP 176/57; PULSE 82; PULSE 86; RESP 18; TEMP 36.5; TEMP 36.9; O2SAT 96; O2SAT 99; BMI 33.4
--- NOTE | 2021-09-29 20:58 | PC.NURSE ---
PT ARRIVED TO FLOOR VIA W/C FROM ED W/STAFF @ 2057
[2021-09-29 21:21] VITALS: PULSE 80
--- NOTE | 2021-09-29 21:52 | P.CONPHA_ITS ---
[facility] Pharmacy VTE Monitoring - Patient Demographics Admission date: 09/29/21 Report Date: 09/29/21 Time: 21:52 Allergies/Adverse Reactions: Patient Allergies No Known Allergies Allergy (Verified 08/25/21 09:55) Height: 1.7 m Weight: 96.644 kg Patient Problems: Current Active Problems Angina at rest (Acute) Elevated troponin (Acute) Right bundle branch block (Acute) Diabetes mellitus (Chronic) - VTE Risk Labs: VTE Related Lab Results Hgb 12.5 g/dL (14.1-18.0) L 09/29/21 19:45 Hct 35.9 % (42.0-52.0) L 09/29/21 19:45 Plt Count 409 K/mm3 (142-424) 09/29/21 19:45 BUN 23 mg/dl (9-20) H 09/29/21 19:45 Creatinine 0.90 mg/dl (0.66-1.25) 09/29/21 19:45 Estimated Creat Clear 103 mL/min (50-200) 09/29/21 19:45 Clinical Trial Participant: No - Prophylaxis VTE Prophylaxis Ordered?: Yes Types of VTE Prophylaxis: TEDS Knee High
[2021-09-29 23:40] LABS: Troponin I 0.07 ng/ml (0.00-0.034)
[2021-09-29 23:50] VITALS: BP 132/62; PULSE 79; RESP 18; TEMP 36.9; O2SAT 94
[2021-09-30] VITALS (16 sets, daily range): BP systolic 136–178; BP diastolic 65–82; PULSE 50–82; RESP 14–18; TEMP 36.4–37.2; O2SAT 93–98; BMI 33.4
--- NOTE | 2021-09-30 | IR_ITS ---
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 COMPLICATIONS None Estimated Blood Loss: Less than 10 ML TECHNIQUE One percent lidocaine used to anesthetize the right groin. The right femoral artery was accessed via the Seldinger technique and a 5 [place] sheath was placed in the right femoral artery. A JL 4, JR4 catheter were used to perform left heart catheterization, left ventriculogram selective coronary angiography as well as selective engagement of the left internal mammary artery. At the end of the procedure therapeutic heparin was administered and the 5 [place] sheath was exchanged for a 6 [place] sheath. A JR4 guide catheter was placed in the right coronary artery followed by a Choice PT extra-support wire. A 3 mm x 38 mm resolute Edward stent was deployed at 24 eliz reducing the severe stenosis to 0%. An additional 3.5 x 38 mm resolute [place] stent was placed proximal to the for stent yet still overlapping it and deployed at 24 eliz. A 4 mm x 20 mm balloon was then deployed in the proximal portion at 24 eliz to post dilate. At the end of the procedure there excellent angiographic results with ROB-3 flow being present before and after the procedure. At the end the procedure the apparatus was removed the groin is reprepped closure change sheath was removed good hemostasis was achieved after Perclose failed and then by using Angio-Seal. Patient was transferred to the postoperative stabilization ANGIOGRAPHIC RESULTS The left main artery Normal The left anterior descending artery The subtotally occluded in the proximal segment. The circumflex artery Is nondominant gives rise to a moderate to large ramus intermedius which has an eccentric proximal 60% stenosis. The circumflex artery itself is nondominant and patent with a mid vessel 50% stenosis and a 1.75 mm vessel The right coronary artery Is a large dominant vessel and proximal urinary. The proximal stent has 30% in-stent restenosis with a mid vessel hazy greater than 50% stenosis followed by what appears to be a ruptured plaque in the distal segment creating a 90% stenosis followed by additional 60% tandem stenoses. The very distal right coronary artery has a 50% stenosis immediately proximal to the PDA and posterior lateral branch The BELL ventriculogram reveals Ejection fraction of 50% The left ventricular end-diastolic pressure 25 mmHg LANZA to LAD widely patent IMPRESSION Coronary disease as described above Successful stenting of the proximal mid and distal dominant right coronary severe disease reduced to 0% with 2 overlapping drug-eluting stents Ejection fraction 50% with moderate to severely elevated LVEDP consistent with diastolic dysfunction PLAN 1. Brilinta 90 twice daily plus aspirin 81 mg daily 2. LDL less than 55 to be achieved with high intensity statin 3. Medical management at this point for the large ramus intermedius. There appears to be a ruptured plaque in the right coronary artery which was likely the etiology for the non-STEMI 4. Cardiac rehabilitation 5. Avoidance of tobacco products 6. Treatment of diastolic dysfunction with diuretics 7. Consider sleep study Electronically signed by : Mendoza Workman MD 09/30/2021 15:43:01
[2021-09-30 03:01] LABS: Troponin I 0.28 ng/ml (0.00-0.034)
--- NOTE | 2021-09-30 04:55 | PC.NURSE ---
A&OX4. TOLERATING RA WELL. HAS C/O PAIN IN RIGHT ARM X1, REQUESTING MORPHINE PER MAY. RELIEF NOTED. PT HAS SLEPT MAJORITY OF SHIFT SINCE ARRIVAL TO FLOOR. HAS TOLERATED NPO DIET WELL. HAS HAD NO OTHER C/O. VSS, WILL CONTINUE TO MONITOR.
--- NOTE | 2021-09-30 06:02 | HMH.HP ---
*Admission Date: 09/29/21 *Chief complaint: Chest Pain *History of present illness: 61-year-old male patient presents to the [facility] emergency department with 3 days of chest pain at night radiating into left neck and left arm. He reports his left arm will feel numb. He reports taking GERD medication and feeling better after and using NTG sublingual for 2 nights with relief and on third night with no relief came to the emergency department. He does report pain is similar to pain experienced during previous [place]. He does have a history of CAD with stents and previous CABG. Troponins positive Chest x-ray revealed no acute cardiopulmonary findings [facility] History I have reviewed the patient's past medical history: Yes Medical History: Reports:: Cardiomyopathy, Carotid Stenosis, Congenital Heart Disease, Coronary Artery Disease, Diabetes Mellitus Type 2, Hyperlipidemia, Hypertension, Myocardial Infarction, Peripheral Artery Disease Denies:: Asthma, Cancer, Congestive Heart Failure, Chronic Obstructive Pulmonary Disease (COPD), Diabetes Mellitus Type 1, Internal Pacemaker, MRSA, Seizures *Have you ever received a pneumonia vaccine?: Yes *Have you received a flu vaccine this season?: Yes Other Medical History: Reports: Arthritis. Denies: Blood Transfusion Reaction Laterality Cases: Right: Carotid Endarterectomy Other Surgeries: Yes: No Previous Surgery, Angiogram, Cardiac Catheterization, Cardiac Surgery, Colonoscopy, Coronary Stent, Hernia Repair, Other. No: Pacemaker Amputation: No Fractures: Yes - *Social History Smoking Status: Former smoker Tobacco Type: cigarettes # Packs/Day (cigarettes): 1 Alcohol Intake: never Alcohol Intake Frequency:: holidays/special occasions only Substance Use Type: marijuana *Occupational Status:: unemployed Housing: house Household Members: none *Travel in the last 8 weeks: None Family Hx:: No significant family history Review of Systems - Review of Systems Review of systems:: pertinent systems reviewed and negative unless documented below - Constitutional Denies fatigue, Denies night sweats - Eyes Denies blurry vision, Denies double vision - ENT Denies hearing loss, Denies nasal congestion - *Cardiovascular Reports chest pain, Reports chest pain at rest, Denies shortness of breath, Denies shortness of breath with activity - *Respiratory Denies chest congestion, Denies cough - *Gastrointestinal Reports heartburn, Denies abdominal pain, Denies constipation - *Musculoskeletal Reports numbness, Denies abnormal walking, Denies neck pain Comments: Left upper extremity during chest pain - Integumentary/Breasts Denies yellowing of the skin, Denies rash - *Neurologic Denies confusion, Denies dizziness, Denies seizure-like activity - Psychiatric Denies lack of enjoyment, Denies confusion - Endocrine Denies cold intolerance, Denies excessive sweating - Hematologic/Lymphatic Denies easy bleeding, Denies enlarged lymph nodes - Allergic/Immunologic Denies lip swelling, Denies throat swelling Meds Home Medications Medication Instructions Recorded Confirmed Type lisinopril 10 mg tablet 5 mg PO DAILY #90 tab 05/21/21 09/30/21 Rx Amlodipine Besylate 5 mg PO DAILY 09/29/21 09/30/21 History Aspirin [Low Dose Aspirin EC] 81 mg PO DAILY 09/29/21 09/30/21 History Insulin Aspart Prot/Insuln Asp 12 units SQ BID 09/29/21 09/30/21 History [Insulin Aspart Pro Piu94-55 Vl] Insulin Glargine,Hum.rec.anlog 28 units SQ HS 09/29/21 09/30/21 History [Lantus Solostar U-100 Insulin] Isosorbide Mononitrate [Isosorbide 60 mg PO DAILY 09/29/21 09/30/21 History Mononitrate ER] Metoprolol Tartrate [Lopressor 100 100 mg PO BID 09/29/21 09/30/21 History mg Tablets] Pravastatin Sodium [Pravachol] 80 mg PO DAILY 09/29/21 09/30/21 History Rivaroxaban [Xarelto] 2.5 mg PO BIDWMEAL 09/29/21 09/30/21 History Ropinirole HCl 1 mg PO TID 09/29/21 09/30/21 History Tamsulo
--- NOTE | 2021-09-30 07:03 | PC.NURSE ---
Janneth SZYMANSKI NOTIFIED OF CONSULT
--- NOTE | 2021-09-30 07:24 | HMH.PHAINT ---
MEDICATION RECONCILIATION COMPLETED ON PATIENT USING EXTERNAL FILL HISTORY FROM PHARMACY. -JULIO CESAR BAZZI, ALICIAD
[2021-09-30 07:39] LABS: Basophils % 0.4 % (0.1-2.0); Eosinophils # 0.2 K/mm3 (0.0-0.4); Eosinophils % 1.6 % (0.1-12.0); Hematocrit 32.8 % (42.0-52.0); Hemoglobin 11.3 g/dL (14.1-18.0); Lymphocytes # 1.9 K/mm3 (0.7-4.5); Mean Corpuscular HGB Conc 34.5 g/dL (31.8-35.4); Mean Corpuscular Hemoglobin 30.9 pg (27.0-31.2); Mean Corpuscular Volume 89.6 fl (80-94); Mean Platelet Volume 7.2 fl (7.4-10.4); Monocytes # 0.9 K/mm3 (0.1-1.0); Monocytes % 7.1 % (1.7-9.3); Neutrophils # 8.9 K/mm3 (1.8-7.8); Neutrophils % 74.9 % (37.0-80.0); Platelet Count 365 K/mm3 (142-424); Red Blood Count 3.66 M/mm3 (4.60-6.20); Red Cell Distribution Width 13.2 % (11.5-17.5); White Blood Count 11.9 K/mm3 (4.8-10.8)
[2021-09-30 07:48] LABS: Anion Gap 8.3 mEq/L (5-15); Blood Urea Nitrogen 17 mg/dl (9-20); Calcium 8.4 mg/dl (8.4-10.2); Carbon Dioxide 24 mmol/L (22.0-30.0); Chloride 109 mmol/L (98-107); Creatinine Clearance Estimated 105 mL/min (50-200); Estimated Glomerular Filt Rate 114 ml/min (>60); GFR (African American) 138 ML/MIN (>60); Glucose 175 mg/dl (74-100); Magnesium 1.9 mg/dl (1.6-2.3); Potassium 4.3 mmoL/L (3.5-5.1); Sodium 137 mmol/L (136-145)
--- NOTE | 2021-09-30 08:27 | HMH.CNCARD ---
History of Present Illness Consult date: 09/30/21 Requesting physician: Asad Victor Consult reason: chest pain Chief complaint: NSTEMI Additional Medical History:: 1. Hypertension 2. Hyperlipidemia 3. PAD 4. DM2 5. CHELSEA A. ALO <20%, LICA 20-49%, 02/2020 6. Cardiomyopathy A. Echo, 02/2020, EF 45% 7. CAD A. CABG B. [facility], 03/2020,ANGIOGRAPHIC RESULTS The left main artery Normal The left anterior descending artery Is proximally normal and then has mid vessel stents which are subtotally occluded. Large first diagonal artery or large ramus intermedius is widely patent with mild atheromatous plaque but no stenosis greater than 10% The circumflex artery The circumflex artery is small nondominant and has a 70% stenosis and a 1 mm area in the midportion of the circumflex artery The right coronary artery Is dominant and has stents in the proximal through mid segment which are widely patent with 30% in-stent restenosis in the midportion. Distally there is 30 to 40% stenosis The BELL ventriculogram reveals Dilated ventricle with estimated ejection fraction 45 to 50% with inferior wall hypokinesis The left ventricular end-diastolic pressure 10 mmHg The left internal mammary artery is widely patent to the mid LAD Right common iliac artery has 30 to 40% nonflow-limiting stenosis The right external iliac artery has 30 to 40% nonflow-limiting stenoses IMPRESSION Coronary disease as described above Reduced ejection fraction with regional wall motion abnormality Patent LANZA to the LAD Mild to moderate nonflow limiting atheromatous plaque in the right common iliofemoral system PLAN 1. Medical management for both coronary disease and peripheral artery disease 2. Aggressive risk factor modification Electronically signed by : Mendoza Workman, 03/30/2020 13:14:37 History of present illness: 61-year-old white male with history of coronary disease presented to the emergency department with 3 days of recurrent chest discomfort at night. Symptoms described as reflux in nature with associated jaw pain and left arm discomfort. 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 Troponins noted to be elevating overnight. Symptoms have not recurred since nitroglycerin paste placed in the ER. Cardiology consulted for evaluation and recommendations. [facility] History Medical History: Reports:: Cardiomyopathy, Carotid Stenosis, Congenital Heart Disease, Coronary Artery Disease, Diabetes Mellitus Type 2, Hyperlipidemia, Hypertension, Myocardial Infarction, Peripheral Artery Disease Denies:: Asthma, Cancer, Congestive Heart Failure, Chronic Obstructive Pulmonary Disease (COPD), Diabetes Mellitus Type 1, Internal Pacemaker, MRSA, Seizures *Have you ever received a pneumonia vaccine?: Yes *Have you received a flu vaccine this season?: Yes Other Medical History: Reports: Arthritis. Denies: Blood Transfusion Reaction Laterality Cases: Right: Carotid Endarterectomy Other Surgeries: Yes: No Previous Surgery, Angiogram, Cardiac Catheterization, Cardiac Surgery, Colonoscopy, Coronary Stent, Hernia Repair, Other. No: Pacemaker Amputation: No Fractures: Yes - *Social History Smoking Status: Former smoker Tobacco Type: cigarettes # Packs/Day (cigarettes): 1 Alcohol Intake: never Alcohol Intake Frequency:: holidays/special occasions only Substance Use Type: marijuana *Occupational Status:: unemployed Housing: house Household Members: none *Travel in the last 8 weeks: None Family Hx:: No significant family history Meds Home Medications Medication Instructions Recorded Confirmed Type lisinopril 10 mg tablet 5 mg PO DAILY #90 tab 05/21/21 09/30/21 Rx Amlodipine Besylate 5 mg PO DAILY 09/29/21 09/30/21 History Aspirin
[2021-09-30 09:07] LABS: Chol/HDL Ratio 5.3 (1-3.5); Cholesterol 143 mg/dl (140-200); HDL Cholesterol 27 mg/dl (40-60); Triglycerides 246 mg/dl (30-150); VLDL Cholesterol 49 mg/dL (0-40)
[2021-09-30 09:18] LABS: Direct LDL Cholesterol 80.16 mg/dL (100-129)
[2021-09-30 15:49] LABS: CATHL Activated Clotting Time 309 SEC (74-125)
--- NOTE | 2021-09-30 18:35 | PC.NURSE ---
PT IS ADAMANT THAT HE BE ALLOWED TO LEAVE. HE WAS EDUCATED ON THE RISKS OF LEAVING AGAINST MEDICAL ADVICE. 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 HE HAS BEEN EDUCATED THAT LEAVING WITHOUT MEDICAL CLEARANCE COULD COMPLICATE HIS DIAGNOSIS. HE STATES HE UNDERSTANDS RISKS. MD FELICIANO HAS BEEN MADE AWARE BY IMMIGRATION SPECIALIST Jeronimo JONES RN.
--- NOTE | 2021-09-30 18:42 | HMH.DCSUM ---
General - General Admission date:: 09/29/21 Discharge date: 09/30/21 HPI HPI: 61-year-old male patient presents to the [facility] emergency department with 3 days of chest pain at night radiating into left neck and left arm. He reports his left arm will feel numb. He reports taking GERD medication and feeling better after and using NTG sublingual for 2 nights with relief and on third night with no relief came to the emergency department. He does report pain is similar to pain experienced during previous SD. He does have a history of CAD with stents and previous CABG. Troponins positive Chest x-ray revealed no acute cardiopulmonary findings Hospital Course Hospital Course: Patient was seen in consultation with cardiology. He was taken to the Console Operator. 2 stents were deployed in his RCA and angioplasty to several vessels. Spoke with staff present in the OR and they relayed that the case went well. Patient is alert and oriented, wants to go home tonight. Objective Vital signs: Temp Pulse Resp BP Pulse Ox 97.6 F 79 14 164/70 H 95 09/30/21 12:00 09/30/21 16:00 09/30/21 16:00 09/30/21 16:00 09/30/21 16:00 no acute distress - *Routine HEENT Exam Head: Present: normocephalic Eye: Present: EOMI, PERRL ENT: Present: mucous membranes moist - *Routine Neck Exam Present: supple - *Routine Respiratory Exam Present: CTA bilaterally - *Routine Cardiovascular Exam Present: RRR - *Routine Abdominal Exam Present: soft, normoactive bowel sounds. Absent: tenderness - *Routine Extremities Exam Absent: cyanosis, clubbing, edema - *Routine Skin Exam Present: warm. Absent: rash Results Labs on day of discharge: Labs from last 24 hours 09/30/21 09/30/21 09/30/21 15:27 07:12 07:12 WBC RBC Hgb Hct MCV MCH MCHC RDW Plt Count MPV Neut % (Auto) Lymph % (Auto) [place] % (Auto) Eos % (Auto) Baso % (Auto) Neut # (Auto) Lymph # (Auto) [place] # (Auto) Eos # (Auto) Baso # (Auto) Activated Clotting Time 309 H* Sodium 137 Potassium 4.3 Chloride 109 H Carbon Dioxide 24 Anion Gap 8.3 BUN 17 D Creatinine 0.70 D Estimated Creat Clear 105 Estimated GFR 114 Est GFR ( Amer) 138 D Glucose 175 H Calcium 8.4 Magnesium 1.9 Troponin I Triglycerides 246 H Cholesterol 143 LDL Cholesterol Direct 80.16 L VLDL Cholesterol 49 H HDL Cholesterol 27 L Cholesterol/HDL Ratio 5.3 H SARS-CoV-2 (PCR) Influenza A Untype (PCR) Influenza Type B (PCR) 09/30/21 09/30/21 09/29/21 07:12 02:30 22:47 WBC 11.9 H RBC 3.66 L Hgb 11.3 L Hct 32.8 L MCV 89.6 MCH 30.9 MCHC 34.5 RDW 13.2 Plt Count 365 MPV 7.2 L Neut % (Auto) 74.9 Lymph % (Auto) 16.0 [place] % (Auto) 7.1 Eos % (Auto) 1.6 Baso % (Auto) 0.4 Neut # (Auto) 8.9 H Lymph # (Auto) 1.9 [place] # (Auto) 0.9 Eos # (Auto) 0.2 Baso # (Auto) 0.0 Activated Clotting Time Sodium Potassium Chloride Carbon Dioxide Anion Gap BUN Creatinine Estimated Creat Clear Estimated GFR Est GFR ( Amer) Glucose Calcium Magnesium Troponin I 0.28 H 0.07 H Triglycerides Cholesterol LDL Cholesterol Direct VLDL Cholesterol HDL Cholesterol Cholesterol/HDL Ratio SARS-CoV-2 (PCR) Influenza A Untype (PCR) Influenza Type B (PCR) 09/29/21 09/29/21 09/29/21 20:15 19:45 19:45 WBC 11.7 H RBC 3.95 L Hgb 12.5 L Hct 35.9 L MCV 90.8 MCH 31.7 H MCHC 34.9 RDW 13.3 Plt Count 409 MPV 6.7 L Neut % (Auto) 66.1 Lymph % (Auto) 24.4 [place] % (Auto) 7.3 Eos % (Auto) 1.9 Baso % (Auto) 0.3 Neut # (Auto) 7.7 Lymph # (Auto) 2.9 [place] # (Auto) 0.9 Eos # (Auto) 0.2 Baso # (Auto) 0.0 Activated Clotting Time
--- NOTE | 2021-09-30 19:36 | PC.NURSE ---
Patient states he understands discharge instruction and new prescriptions given. IV removed from patient. Patient states he understands and will call for his follow up appt with Ji r/t it being after hours, office number gave to patient. Complications and warning signs explained to patient states understanding to come back to the ED with any concerns. Stent paper work given to patient patient voices importance of keeping these cards. Patient ridding home with a friend. Signatures obtained
[2021-10-01 13:27] LABS: POC Glucose,Bedside 137 (70-110)
[2021-10-01 13:27] LABS: POC Glucose,Bedside 168 (70-110)
--- NOTE | 2021-10-01 13:33 | CARE MANAGER ---
Unable to reach patient for follow-up phone call.
== END 2021-09-30 19:40 | disposition home or self-care (01) | DRG 247 ==
LOC: ER 20:49 → 2ND 09-30 01:32
PROVIDERS: Internal Medicine; Physician Assistant; Admitting Provider Emergency Medicine; Emergency Provider Emergency Medicine; Visit Provider Emergency Medicine
PROC: 027035Z Dilation of Coronary Artery, One Artery with Two Drug-eluting Intraluminal Devices, Percutaneous Approach (ICD-10-PCS; principal; 2021-09-30 10:15)
DX: I21.3 ST elevation (STEMI) myocardial infarction of unspecified site (principal); I42.9 Cardiomyopathy, unspecified; T82.855A Stenosis of coronary artery stent, initial encounter; I25.118 Atherosclerotic heart disease of native coronary artery with other forms of angina pectoris; Z87.891 Personal history of nicotine dependence; Z95.1 Presence of aortocoronary bypass graft; I65.29 Occlusion and stenosis of unspecified carotid artery; E11.51 Type 2 diabetes mellitus with diabetic peripheral angiopathy without gangrene; I25.2 Old myocardial infarction; Y83.1 Surgical operation with implant of artificial internal device as the cause of abnormal reaction of the patient, or of later complication, without mention of misadventure at the time of the procedure
CPT/HCPCS: 36415; 71045; 80048; 80061; 82962; 83735; 84484; 85025; 85347; 92928; 93005; 93306; 93458; 99152; 99153; 99285; C1725; C1760; C1769; C1874; C1876; C1894; C9600; C9803; J1644; J2405; Q9967; U0003; U0005

== ENCOUNTER 2021-10-30 05:00 | Inpatient (IN) | payer OTHER, SELFPAY ==
[2021-10-30] VITALS (10 sets, daily range): BP systolic 130–173; BP diastolic 51–75; PULSE 67–98; RESP 15–28; TEMP 36.5–37; O2SAT 94–97; BMI 31.0; BMI 30.9
--- NOTE | 2021-10-30 04:58 | ECG_ITS ---
APPROVED REPORT Exam: Resting ECG HR:99 bpm ECG Measurements Heart Rate 99 AXES OK 170 P 64 QRSd 146 QRS 68 QT 349 T 48 QTc 405 Conclusion SINUS RHYTHM RIGHT BUNDLE BRANCH BLOCK [120+ ms QRS DURATION, UPRIGHT V1, 40+ ms S IN I/aVL/V4/V5/V6] ABNORMAL ECG UNCONFIRMED REPORT Electronically signed by : Maxwell Rodriguez MD 10/30/2021 09:30:27
--- NOTE | 2021-10-30 05:05 | XR_ITS ---
PROCEDURE INFORMATION: Exam: XR Chest Exam date and time: 10/30/2021 5:27 AM Age: 61 years old Clinical indication: Chest wall pain; Prior surgery; Additional info: Chest pain TECHNIQUE: Imaging protocol: Radiologic exam of the chest. Views: 1 view. COMPARISON: CR XR CHEST PORTABLE 09/29/2021 7:46 PM FINDINGS: Lungs: Unremarkable. No consolidation. Pleural spaces: Unremarkable. No pleural effusion. No pneumothorax. Heart/Mediastinum: The heart is prominent. Coronary atherosclerosis is noted. Bones/joints: The patient is status post median sternotomy. IMPRESSION: No acute process noted.
[2021-10-30 05:26] LABS: Basophils % 0.3 % (0.1-2.0); Eosinophils # 0.2 K/mm3 (0.0-0.4); Eosinophils % 1.6 % (0.1-12.0); Hematocrit 33.1 % (42.0-52.0); Hemoglobin 10.3 g/dL (14.1-18.0); Lymphocytes # 1.6 K/mm3 (0.7-4.5); Lymphocytes % 13.9 % (10-50); Mean Corpuscular HGB Conc 31.1 g/dL (31.8-35.4); Mean Corpuscular Hemoglobin 31.5 pg (27.0-31.2); Mean Corpuscular Volume 101.4 fl (80-94); Mean Platelet Volume 7.7 fl (7.4-10.4); Monocytes # 0.8 K/mm3 (0.1-1.0); Monocytes % 6.5 % (1.7-9.3); Neutrophils # 9.1 K/mm3 (1.8-7.8); Neutrophils % 77.7 % (37.0-80.0); Platelet Count 531 K/mm3 (142-424); Red Blood Count 3.27 M/mm3 (4.60-6.20); Red Cell Distribution Width 14.1 % (11.5-17.5); White Blood Count 11.7 K/mm3 (4.8-10.8)
[2021-10-30 05:34] LABS: Alanine Aminotransferase 27 U/L (12-78); Albumin Level 3.6 g/dl (3.5-5.0); Albumin/Globulin Ratio 1.3 (1.1-1.8); Alkaline Phosphatase 152 U/L (38-126); Anion Gap 7.7 mEq/L (5-15); Aspartate Amino Transferase 23 U/L (17-59); Blood Urea Nitrogen 17 mg/dl (9-20); Calcium 9.5 mg/dl (8.4-10.2); Carbon Dioxide 25 mmol/L (22.0-30.0); Chloride 105 mmol/L (98-107); Creatinine Clearance Estimated 97 mL/min (50-200); Estimated Glomerular Filt Rate 114 ml/min (>60); GFR (African American) 138 ML/MIN (>60); Globulin 2.8 g/dL (1.3-3.2); Glucose 247 mg/dl (74-100); Potassium 4.7 mmoL/L (3.5-5.1); Sodium 133 mmol/L (136-145); Total Protein,Serum 6.4 g/dl (6.3-8.2)
--- NOTE | 2021-10-30 05:34 | ECG_ITS ---
APPROVED REPORT Exam: Resting ECG HR:91 bpm ECG Measurements Heart Rate 91 AXES HI 176 P 70 QRSd 140 QRS 73 QT 358 T 62 QTc 407 Conclusion SINUS RHYTHM RIGHT BUNDLE BRANCH BLOCK [120+ ms QRS DURATION, UPRIGHT V1, 40+ ms S IN I/aVL/V4/V5/V6] ABNORMAL ECG UNCONFIRMED REPORT Electronically signed by : Maxwell Rodriguez MD 10/30/2021 09:24:33
[2021-10-30 05:35] LABS: Bilirubin,Total 0.1 mg/dl (0.2-1.3)
--- NOTE | 2021-10-30 05:55 | PC.NURSE ---
Reid from lab called critical troponin of 0.61. notified at [id number].
[2021-10-30 05:56] LABS: Troponin I 0.61 ng/ml (0.00-0.034)
--- NOTE | 2021-10-30 05:58 | PC.NURSE ---
Patient called out stating that he was having another one of those little heart attacks . Repeat ekg was immediately performed by Lauren Calvert and given to for interpretation.
--- NOTE | 2021-10-30 06:09 | PC.NURSE ---
Dr. Packer paged
[2021-10-30 06:10] LABS: Coronavirus 19, PCR Not Detected (NotDetected); Influenza A, PCR Not Detected (NotDetected); Influenza B, PCR Not Detected (NotDetected)
--- NOTE | 2021-10-30 06:10 | PC.NURSE ---
speaking with Dr. Packer
--- NOTE | 2021-10-30 06:20 | HMH.EDCP ---
ED Disposition Clinical Impression: NSTEMI (non-ST elevated myocardial infarction) Disposition: Admitted As Inpatient Condition on Discharge: Fair Referrals: Latoya Champagne APRN [Primary Care Provider] - - Critical Care Critical Care Time: No Attestation: On 10/30/21, the high probability of a clinically significant, sudden or life threatening deterioration of the following system(s) required my full and direct attention, intervention and personal management. The time I documented below is in addition to time spent performing reported procedures but includes the following listed in this critical care notation. My critical care processes included: Assessment & monitoring of V/S, Initial and Re-exams, Data Review/Interpretation, Coordinating Care, Medication Orders and management, Documentation Medical Decision Making - Medical Records Medical records reviewed: Yes: I reviewed the patient's medical records. - Quan Inquiry Pt receiving controlled substance: No Vital Signs: 10/30/21 05:05 Temperature 98.2 F Temperature Source Oral Pulse Rate [Apical] 98 H Respiratory Rate 18 Blood Pressure [Right Arm] 154/66 H Blood Pressure Mean [Right Arm] 95 Blood Pressure Source [Right Arm] Automatic Cuff Blood Pressure Position [Right Arm] Sitting 02 Sat by Pulse Oximetry 97 Oxygen Delivery Method Room Air - Lab Data Lab results reviewed: Yes: I reviewed the patient's lab results. Lab Results 10/30/21 05:09: WBC 11.7 H, RBC 3.27 L, Hgb 10.3 L, Hct 33.1 L, MCV 101.4 H, MCH 31.5 H, MCHC 31.1 L, RDW 14.1, Plt Count 531 H, MPV 7.7, Neut % (Auto) 77.7, Lymph % (Auto) 13.9, Hood % (Auto) 6.5, Eos % (Auto) 1.6, Baso % (Auto) 0.3, Neut # (Auto) 9.1 H, Lymph # (Auto) 1.6, Hood # (Auto) 0.8, Eos # (Auto) 0.2, Baso # (Auto) 0.0 10/30/21 05:09: Sodium 133 L, Potassium 4.7, Chloride 105, Carbon Dioxide 25, Anion Gap 7.7, BUN 17, Creatinine 0.70, Estimated Creat Clear 97, Estimated GFR 114, Est GFR ( Amer) 138, Glucose 247 H, Calcium 9.5, Total Bilirubin 0.1 L, AST 23, ALT 27, Alkaline Phosphatase 152 H, Troponin I 0.61 H, Total Protein 6.4, Albumin 3.6, Globulin 2.8, Albumin/Globulin Ratio 1.3 Result diagrams: 10/30/21 05:09 10/30/21 05:09 Orders (Tests/Meds): ED MEDICATIONS Generic Name Dose Route Start Last Admin Trade Name Freq PRN Reason Stop Dose Admin Acetaminophen 650 mg 10/30/21 06:16 Acetaminophen 325mg Tab PO 11/29/21 06:15 Q4HP PRN Fever or Mild Pain Amlodipine Besylate 5 mg 10/30/21 09:00 Amlodipine 5mg Tablet PO 11/29/21 08:59 DAILY [facility] Insulin Human Lispro 0 unit 10/30/21 06:30 Humalog 100 Units/Ml 3ml Vial ([facility]) SQ 11/29/21 06:29 Q6H [facility] Protocol Isosorbide Mononitrate 60 mg 10/30/21 09:00 Isosorbide Hood 60mg Tab.Er.24h PO 11/29/21 08:59 DAILY [facility] Lisinopril 5 mg 10/30/21 09:00 Lisinopril 10mg Tablet PO 11/29/21 08:59 DAILY [facility] Non-Formulary Medication 80 mg 10/30/21 09:00 Pravastatin Sodium [Pravachol] PO 11/29/21 08:59 DAILY [facility] Non-Formulary Medication 100 mg 10/30/21 09:00 Metoprolol Tartrate [Lopressor 100 Mg Tablets] PO 11/29/21 08:59 BID [facility] Non-Formulary Medication 1 each 10/30/21 09:00 Sennosides/Docusate Sodium [Senna Plus 8.6-50 Mg Softgel] PO 11/29/21 08:59 DAILY [facility] Ropinirole HCl 1 mg 10/30/21 09:00 Ropinirole 1mg Tablet PO 11/29/21 08:59 TID [facility] Tamsulosin HCl 0.4 mg 10/30/21 21:00 Tamsulosin 0.4mg Capsule PO 11/29/21 20:59 HS [facility] Ticagrelor 90 mg 10/30/21 09:00 Ticagrelor 90mg Tablet PO 11/29/21 08:59 BID JUAN Discontinued Medications Generic Name Dose Route Start Last Admin Trade Name Javier PRN Reason Stop Dose Admin Aspirin 324 mg 10/30/21 06:13 10/30/21 06:15 Aspirin 81mg Chewable Tablet PO 10/30/21 06:14 324 mg ONCE ONE Administration ORDERS Category Date Time Status CXR --portable [XR chest portable]
[2021-10-30 06:46] LABS: INR 0.91 (0.9-1.1); Prothrombin Time 10.4 seconds (10.1-12.5)
[2021-10-30 07:06] LABS: Activated Partial Thrombo Time 19.3 seconds (22.8-30.6)
--- NOTE | 2021-10-30 07:40 | PC.NURSE ---
pt talking on phone. denies any c/o cp at present. call light with in reach
--- NOTE | 2021-10-30 08:02 | PC.NURSE ---
report called to floor
--- NOTE | 2021-10-30 08:09 | PC.NURSE ---
2nd trop. drawn and sent to lab
--- NOTE | 2021-10-30 08:37 | PC.NURSE ---
critical lab result called to receiving nurse
--- NOTE | 2021-10-30 10:31 | PC.NURSE ---
Spoke with Dr. Workman no cards consult today. Okay to place pt on cardiac diet. No cath today.
--- NOTE | 2021-10-30 10:42 | HMH.PHAVTE ---
[facility] Pharmacy VTE Monitoring - Patient Demographics Admission date: 10/30/21 Report Date: 10/30/21 Time: 10:42 Allergies/Adverse Reactions: Patient Allergies No Known Allergies Allergy (Verified 10/06/21 09:43) Height: 1.7 m Weight: 89.556 kg Patient Problems: Current Active Problems NSTEMI (non-ST elevated myocardial infarction) (Acute) - VTE Risk Labs: VTE Related Lab Results Hgb 10.3 g/dL (14.1-18.0) L 10/30/21 05:09 Hct 33.1 % (42.0-52.0) L 10/30/21 05:09 Plt Count 531 K/mm3 (142-424) H 10/30/21 05:09 PT 10.4 seconds (10.1-12.5) 10/30/21 05:09 INR 0.91 (0.9-1.1) 10/30/21 05:09 APTT 19.3 seconds (22.8-30.6) L 10/30/21 05:09 BUN 17 mg/dl (9-20) 10/30/21 05:09 Creatinine 0.70 mg/dl (0.66-1.25) 10/30/21 05:09 Estimated Creat Clear 97 mL/min (50-200) 10/30/21 05:09 Was VTE Risk Assessment Performed: Yes VTE Score: 3 VTE Risk Level: Low Risk Clinical Trial Participant: No - Prophylaxis VTE Prophylaxis Ordered?: Yes Types of VTE Prophylaxis: TEDS Knee High Location of Applied Device: Bilateral Lower Extremeties
--- NOTE | 2021-10-30 10:42 | HMH.PHAINT ---
MEDICATION RECONCILIATION COMPLETE USING LIST FROM MOST RECENT MD OFFICE VISITS AND EXTERNAL PHARMACY FILL HISTORY.
[2021-10-30 10:44] LABS: Troponin I 0.49 ng/ml (0.00-0.034)
[2021-10-30 12:11] LABS: POC Glucose,Bedside 191 (70-110)
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
[2021-10-30 13:41] LABS: Troponin I 0.53 ng/ml (0.00-0.034)
--- NOTE | 2021-10-30 13:46 | PC.NURSE ---
reported troponin to Dr. Packer
[2021-10-30 16:52] LABS: POC Glucose,Bedside 195 (70-110)
--- NOTE | 2021-10-30 18:34 | PC.NURSE ---
pt has not complained of any chest discomfort through out the entire shift. VS have been stable. He has ambulated independently. C/o mild soa with exertion but saturation is stable on RA.
[2021-10-31] VITALS (9 sets, daily range): BP systolic 102–154; BP diastolic 51–72; PULSE 64–83; RESP 17–20; TEMP 36.3–36.9; O2SAT 94–97; BMI 30.9
[2021-10-31 00:38] LABS: POC Glucose,Bedside 196 (70-110)
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
[2021-10-31 05:45] LABS: POC Glucose,Bedside 189 (70-110)
[2021-10-31 09:12] LABS: Basophils % 0.2 % (0.1-2.0); Eosinophils # 0.3 K/mm3 (0.0-0.4); Hematocrit 31.2 % (42.0-52.0); Lymphocytes # 1.5 K/mm3 (0.7-4.5); Lymphocytes % 11.7 % (10-50); Mean Corpuscular HGB Conc 31.9 g/dL (31.8-35.4); Mean Corpuscular Hemoglobin 31.1 pg (27.0-31.2); Mean Corpuscular Volume 97.5 fl (80-94); Mean Platelet Volume 7.3 fl (7.4-10.4); Monocytes # 0.7 K/mm3 (0.1-1.0); Monocytes % 5.6 % (1.7-9.3); Neutrophils # 10.2 K/mm3 (1.8-7.8); Neutrophils % 80.4 % (37.0-80.0); Platelet Count 545 K/mm3 (142-424); Red Cell Distribution Width 13.9 % (11.5-17.5); White Blood Count 12.6 K/mm3 (4.8-10.8)
[2021-10-31 09:34] LABS: Alanine Aminotransferase 38 U/L (12-78); Albumin Level 3.4 g/dl (3.5-5.0); Albumin/Globulin Ratio 1.2 (1.1-1.8); Alkaline Phosphatase 147 U/L (38-126); Anion Gap 10.7 mEq/L (5-15); Aspartate Amino Transferase 40 U/L (17-59); Bilirubin,Total 0.2 mg/dl (0.2-1.3); Blood Urea Nitrogen 14 mg/dl (9-20); Calcium 8.9 mg/dl (8.4-10.2); Carbon Dioxide 22 mmol/L (22.0-30.0); Chloride 102 mmol/L (98-107); Creatinine Clearance Estimated 97 mL/min (50-200); Estimated Glomerular Filt Rate 137 ml/min (>60); GFR (African American) 165 ML/MIN (>60); Globulin 2.9 g/dL (1.3-3.2); Glucose 298 mg/dl (74-100); Magnesium 1.9 mg/dl (1.6-2.3); Phosphorous 3.5 mg/dl (2.5-4.5); Potassium 4.7 mmoL/L (3.5-5.1); Sodium 130 mmol/L (136-145); Total Protein,Serum 6.3 g/dl (6.3-8.2)
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
[2021-10-31 17:05] LABS: POC Glucose,Bedside 251 (70-110)
[2021-10-31 17:05] LABS: POC Glucose,Bedside 255 (70-110)
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
[2021-11-01] VITALS (25 sets, daily range): BP systolic 100–141; BP diastolic 43–78; PULSE 69–100; RESP 16–20; TEMP 36.3–37; O2SAT 94–98; BMI 30.9
--- NOTE | 2021-11-01 | IR_ITS ---
APPROVED REPORT Patient Location: Inpatient Recovery Room Rn: CALVIN Hester RT (R) PROCEDURES Left heart catheterization Left ventriculogram Selective coronary angiogram Selective gauge left internal mammary artery INDICATION History of coronary bypass surgery, Known coronary artery disease, Acute non-ST elevation myocardial infarction Informed consent was obtained prior to the procedure. COMPLICATIONS none Estimated Blood Loss: less than 10 ml TECHNIQUE One percent lidocaine used to anesthetize the right groin. The right femoral artery was accessed via the Seldinger technique and a 5 [place] sheath was placed in the right femoral artery. A JL 4, JR4 catheter were used to perform left heart catheterization, left ventriculogram selective coronary angiography as well as selective engagement of the left internal mammary artery. At the end of the procedure the patient was transferred to the postop holding area in stable condition for sheath removal. ANGIOGRAPHIC RESULTS The left main artery Normal The left anterior descending artery Ostially occluded The circumflex artery Gives rise to a moderate to large ramus intermedius which has a proximal concentric 50% stenosis. The true circumflex artery gives off a solitary small to moderate branch which has a proximal concentric 70 to 80% stenosis over the vessel is 1.75 mm in diameter The right coronary artery Is a dominant vessel has stents in the proximal mid and distal segment which are widely patent free of in-stent restenosis with excellent proximal distal transitioning. The distal vessel has a 60 to 70% concentric stenosis immediately proximal to a large posterior descending artery and posterior lateral branch The BELL ventriculogram reveals Slightly reduced at 45 to 50% The left ventricular end-diastolic pressure 10 mmHg LANZA to LAD is widely patent IMPRESSION Coronary artery disease as described above Slightly reduced ejection fraction with normal left ventricular end-diastolic pressure PLAN 1. Strongly recommend medical management. While the ramus intermedius is large enough to stent I believe this is unlikely to be producing the acute coronary syndrome. I am concerned about stenting the vessel given the history of LAD stent occlusion secondary to in-stent restenosis. The ramus is widely patent with ROB-3 flow and while this vessel would be easy to stent should he develop in-stent restenosis I could not recommend repeat bypass surgery for that single-vessel. I believe it would be better to continue with dual antiplatelet therapy while simultaneously increasing the nitrates and beta-blockers 2. Avoidance of tobacco products 3. Risk factor modification 4. LDL less than 55 5. While the terminal obtuse marginal artery of the nondominant circumflex artery is theoretically large enough to stent I do not believe this would be beneficial given its small amount of myocardial territory Electronically signed by : Mendoza Workman MD 11/01/2021 15:19:58
--- NOTE | 2021-11-01 05:17 | PC.NURSE ---
Pt is alert and oriented x4, had ambulated from bed to chair and back to bed. Pt has complained of back pain 1 time, medicated prn per may. Pt has had no complaints of chest pain. Lung sounds are clear bilaterally. Pt has had no complaints of SOA. Pt remains on room air. Pt independently goes to the restroom. Call light in reach and working.
[2021-11-01 05:54] LABS: POC Glucose,Bedside 208 (70-110)
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
--- NOTE | 2021-11-01 11:39 | HMH.ACPN2 ---
Internal Medicine - PN: Subj *Date: 11/02/21 *Time: 05:55 Interval history: pt with episodes of angina and was seen by card note reviewed Exam Vital signs and Labs for Last 24 Hours: Temp Pulse Resp BP Pulse Ox 97.4 F L 85 20 132/61 95 11/01/21 08:00 11/01/21 08:00 11/01/21 08:00 11/01/21 08:00 11/01/21 08:00 Laboratory Results - last 24 hr 10/31/21 11:55: POC Glucose 255 H 10/31/21 16:56: POC Glucose 251 H 11/01/21 05:45: POC Glucose 208 H I & O for Last 24 hours: Intake & Output 10/29/21 10/30/21 10/31/21 11/01/21 11:59 11:59 11:59 11:59 Intake Total 720 / 720 1440 / 1440 Output Total 200 / 200 Balance 720 / 720 1240 / 1240 Weight 197 lb 7 oz 197 lb 197 lb 4.8 oz - Constitutional no acute distress, obese - *Routine HEENT Exam Head: Present: normocephalic Eye: Present: EOMI, PERRL ENT: Present: mucous membranes dry - *Routine Neck Exam Absent: JVD - *Routine Respiratory Exam Present: decreased breath sounds - *Routine Cardiovascular Exam Present: RRR, murmur - *Routine Abdominal Exam Present: soft - *Routine Extremities Exam Absent: calf tenderness - *Routine Skin Exam Present: intact - *Routine Neurological Exam Present: alert, CN II-XII intact - Routine Psychiatric Exam Present: cooperative Assessment and Plan (1) Abnormal EKG Status: Acute Category: Medical Code(s): R94.31 - Abnormal electrocardiogram [ECG] [EKG] (2) Angina at rest Status: Acute Category: Medical Code(s): I20.8 - Other forms of angina pectoris (3) Elevated troponin Status: Acute Category: Medical Code(s): R77.8 - Other specified abnormalities of plasma proteins (4) NSTEMI (non-ST elevated myocardial infarction) Status: Acute Category: Medical Code(s): I21.4 - Non-ST elevation (NSTEMI) myocardial infarction (5) Numbness and tingling in left arm Status: Acute Category: Medical Code(s): R20.0 - Anesthesia of skin; R20.2 - Paresthesia of skin (6) Right bundle branch block Status: Acute Category: Medical Code(s): I45.10 - Unspecified right bundle-branch block (7) CAD (coronary artery disease) Status: Chronic Qualifiers: Coronary Disease-Associated Artery/Lesion type: bypass graft [place] vs. transplanted heart: [place] heart Associated angina: without angina Qualified Code(s): I25.810 - Atherosclerosis of coronary artery bypass graft(s) without angina pectoris Category: Medical Code(s): I25.10 - Atherosclerotic heart disease of [place] coronary artery without angina pectoris (8) Coronary arteriosclerosis Status: Chronic Category: Medical Code(s): I25.10 - Atherosclerotic heart disease of [place] coronary artery without angina pectoris (9) Diabetes mellitus Status: Chronic Qualifiers: Diabetes mellitus type: type 1 Diabetes mellitus complication status: with other specified complication Qualified Code(s): E10.69 - Type 1 diabetes mellitus with other specified complication Category: Medical Code(s): E11.9 - Type 2 diabetes mellitus without complications (10) Hx of CABG Status: Chronic Category: Surgical Code(s): Z95.1 - Presence of aortocoronary bypass graft (11) Hyperlipidemia Status: Chronic Qualifiers: Hyperlipidemia type: mixed hyperlipidemia Qualified Code(s): E78.2 - Mixed hyperlipidemia Category: Medical Code(s): E78.5 - Hyperlipidemia, unspecified (12) Hypertensive disorder Status: Chronic Qualifiers: Hypertension type: essential hypertension Category: Medical Code(s): I10 - Essential (primary) hypertension
--- NOTE | 2021-11-01 13:57 | PC.NURSE ---
rounded on patient. only complaint was waiting to go down for procedure. called down to [facility] who stated they hope to come up to get the patient within the next hour and this was relayed to the patient. stated he was ready to get out of here. no concerns in regards to care or medications at this time. encouraged him to ring out with any other concerns or questions.
--- NOTE | 2021-11-01 15:58 | PC.NURSE ---
PT IS AOX4, ABLE TO MAKE NEEDS KNOWN TO STAFF, HEART CATH TODAY, FEMORAL APPROACH, NO STENTS PLACED. VSS SINCE ARRIVING BACK TO FLOOR. LUNG SOUNDS CLEAR BILATERALLY. HAS ASKED ABOUT GOING HOME MULTIPLE TIMES THIS SHIFT.
[2021-11-01 19:22] LABS: POC Glucose,Bedside 205 (70-110)
[2021-11-01 19:22] LABS: POC Glucose,Bedside 250 (70-110)
--- NOTE | 2021-11-01 22:01 | PC.NURSE ---
Patient refused bath stating that he was going home tommorow and requested that he would have one then and not tonight
[2021-11-02] VITALS: BP 114/44; PULSE 72; PULSE 80; RESP 20; TEMP 36.9; O2SAT 98
[2021-11-02 04:00] VITALS: BP 125/50; PULSE 70; PULSE 74; RESP 20; TEMP 36.6; O2SAT 98
[2021-11-02 05:00] VITALS: BMI 31.1
[2021-11-02 05:47] LABS: POC Glucose,Bedside 217 (70-110)
--- NOTE | 2021-11-02 07:05 | PC.NURSE ---
No acute change. Pt has not voiced any complaints to staff. Ambulates to BR ind. R femoral DSG CDI. Call light within reach
[2021-11-02 08:00] VITALS: BP 127/51; PULSE 70; PULSE 77; RESP 18; TEMP 36.6; O2SAT 96; O2SAT 98
--- NOTE | 2021-11-02 09:39 | HMH.PNCARD ---
Subjective Date: 11/02/21 Time: 09:39 Principal diagnosis: nstemi Interval history: s/p left heart cath, doing well, denies cp or soa, requesting to go home. Exam Vital signs and Labs for Last 24 Hours: Temp Pulse Resp BP Pulse Ox 97.8 F 77 18 127/51 L 96 11/02/21 08:00 11/02/21 08:00 11/02/21 08:00 11/02/21 08:00 11/02/21 08:00 Laboratory Results - last 24 hr 11/01/21 11:23: POC Glucose 250 H 11/01/21 17:30: POC Glucose 205 H 11/02/21 05:38: POC Glucose 217 H I & O for Last 24 hours: Intake & Output 10/30/21 10/31/21 11/01/21 11/02/21 23:59 23:59 23:59 23:59 Intake Total 360 / 360 1320 / 1320 480 / 480 480 / 480 Output Total 200 / 200 Balance 360 / 360 1320 / 1320 280 / 280 480 / 480 Weight 197 lb 7 oz 197 lb 197 lb 4.667 oz 198 lb 6.4 oz - Constitutional no acute distress - *Routine Cardiovascular Exam Present: RRR Comments: right groin access site-no bleeding, swelling, redness/bruising or warmth. Progress Note: A&P (1) Abnormal EKG Status: Acute (2) Angina at rest Status: Acute (3) Elevated troponin Status: Acute (4) NSTEMI (non-ST elevated myocardial infarction) Status: Acute (5) Numbness and tingling in left arm Status: Acute (6) Right bundle branch block Status: Acute (7) CAD (coronary artery disease) Status: Chronic (8) Coronary arteriosclerosis Status: Chronic (9) Diabetes mellitus Status: Chronic (10) Hx of CABG Status: Chronic (11) Hyperlipidemia Status: Chronic (12) Hypertensive disorder Status: Chronic Assessment and Plan for All Diagnoses:: NSTEMI/cad -s/p left heart cath yesterday, medical management, see below. -Continue brilinta, aspirin, statin, nitrates HTN -continue lisinopril, metoprolol and norvasc HLD -high dose statin. DC cardiac meds Brilinta 90mg BID Aspirin 81mg QD Crestor 40mg QD imdur 60mg QD Metoprolol 100 BID Norvasc 10mg qd Lisinopril 10mg qd ANGIOGRAPHIC RESULTS The left main artery Normal The left anterior descending artery Ostially occluded The circumflex artery Gives rise to a moderate to large ramus intermedius which has a proximal concentric 50% stenosis. The true circumflex artery gives off a solitary small to moderate branch which has a proximal concentric 70 to 80% stenosis over the vessel is 1.75 mm in diameter The right coronary artery Is a dominant vessel has stents in the proximal mid and distal segment which are widely patent free of in-stent restenosis with excellent proximal distal transitioning. The distal vessel has a 60 to 70% concentric stenosis immediately proximal to a large posterior descending artery and posterior lateral branch The BELL ventriculogram reveals Slightly reduced at 45 to 50% The left ventricular end-diastolic pressure 10 mmHg LANZA to LAD is widely patent IMPRESSION Coronary artery disease as described above Slightly reduced ejection fraction with normal left ventricular end-diastolic pressure PLAN 1. Strongly recommend medical management. While the ramus intermedius is large enough to stent I believe this is unlikely to be producing the acute coronary syndrome. I am concerned about stenting the vessel given the history of LAD stent occlusion secondary to in-stent restenosis. The ramus is widely patent with ROB-3 flow and while this vessel would be easy to stent should he develop in-stent restenosis I could not recommend repeat bypass surgery for that single-vessel. I believe it would be better to continue with dual antiplatelet therapy while simultaneously increasing the nitrates and beta-blockers 2. Avoidance of tobacco products 3. Risk factor modification 4. LDL less than 55 5. While the terminal obtuse marginal artery of the nondominant circumflex artery is theoretically large enough to stent I do not believe this would be beneficial given its small amount of myocardial territory
[2021-11-02 11:16] VITALS: BP 149/76; PULSE 73; RESP 17; TEMP 36.8; O2SAT 98
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
[2021-11-02 11:52] LABS: POC Glucose,Bedside 245 (70-110)
--- NOTE | 2021-11-03 13:42 | CARE MANAGER ---
Contacted patient related to discharge from hospital. [facility] pharmacy is to deliver the medications. He denies questions at this time. He is aware of follow up appointments. CHRISTIAN Bazzi
== END 2021-11-02 12:34 | disposition home or self-care (01) | DRG 281 ==
LOC: ER 06:26 → 2ND 06:56
PROVIDERS: Internal Medicine; Admitting Provider Family Medicine; Emergency Provider Student in an Organized Health Care Education/Training Program; PCP Nurse Practitioner Family; Visit Provider Family Medicine
PROC: 4A023N7 Measurement of Cardiac Sampling and Pressure, Left Heart, Percutaneous Approach (ICD-10-PCS; principal; 2021-11-01 13:00)
DX: I21.4 Non-ST elevation (NSTEMI) myocardial infarction (principal); I42.9 Cardiomyopathy, unspecified; I25.10 Atherosclerotic heart disease of native coronary artery without angina pectoris; I65.29 Occlusion and stenosis of unspecified carotid artery; E11.51 Type 2 diabetes mellitus with diabetic peripheral angiopathy without gangrene; E78.5 Hyperlipidemia, unspecified; I10 Essential (primary) hypertension; I25.2 Old myocardial infarction; Z95.1 Presence of aortocoronary bypass graft; Z95.5 Presence of coronary angioplasty implant and graft
CPT/HCPCS: 36415; 71045; 80053; 82962; 83735; 84100; 84484; 85025; 85610; 85730; 93005; 93458; 99152; 99285; C1725; C1769; C1894; C9803; J1644; Q9967; U0003; U0005

== ENCOUNTER → 2022-05-18 14:45 | Outpatient (CLI) | payer OTHER, SELFPAY ==
[2022-05-18 15:48] LABS: Basophils % 0.3 % (0.1-2.0); Eosinophils # 0.1 K/mm3 (0.0-0.4); Eosinophils % 1.2 % (0.1-12.0); Hematocrit 35.7 % (42.0-52.0); Hemoglobin 11.5 g/dL (14.1-18.0); Lymphocytes # 1.6 K/mm3 (0.7-4.5); Lymphocytes % 13.8 % (10-50); Mean Corpuscular HGB Conc 32.4 g/dL (31.8-35.4); Mean Corpuscular Hemoglobin 30.7 pg (27.0-31.2); Mean Corpuscular Volume 94.8 fl (80-94); Mean Platelet Volume 7.2 fl (7.4-10.4); Monocytes # 0.7 K/mm3 (0.1-1.0); Neutrophils # 8.9 K/mm3 (1.8-7.8); Neutrophils % 78.7 % (37.0-80.0); Platelet Count 376 K/mm3 (142-424); Red Blood Count 3.76 M/mm3 (4.60-6.20); Red Cell Distribution Width 13.7 % (11.5-17.5); White Blood Count 11.2 K/mm3 (4.8-10.8)
[2022-05-18 17:06] LABS: Free T4 (Free Thyroxine) 0.92 ng/dl (0.78-2.19)
[2022-05-18 17:25] LABS: Alanine Aminotransferase 25 U/L (12-78); Albumin Level 4.1 g/dl (3.5-5.0); Alkaline Phosphatase 86 U/L (38-126); Anion Gap 8.9 mEq/L (5-15); Aspartate Amino Transferase 22 U/L (17-59); Bilirubin,Direct 0.4 mg/dl (0.0-0.4); Bilirubin,Indirect 0.2 mg/dL (0.0-0.9); Bilirubin,Total 0.6 mg/dl (0.2-1.3); Bilirubin,Unconjugated 0.3 mg/dL (0.0-1.1); Blood Urea Nitrogen 20 mg/dl (9-20); Calcium 8.8 mg/dl (8.4-10.2); Carbon Dioxide 21 mmol/L (22.0-30.0); Chloride 110 mmol/L (98-107); Chol/HDL Ratio 5.4 (1-3.5); Cholesterol 140 mg/dl (140-200); Estimated Glomerular Filt Rate 75 ml/min (>60); GFR (African American) 91 ML/MIN (>60); Glucose 174 mg/dl (74-100); HDL Cholesterol 26 mg/dl (40-60); Potassium 4.9 mmoL/L (3.5-5.1); Sodium 135 mmol/L (136-145); Total Protein,Serum 6.5 g/dl (6.3-8.2); Triglycerides 191 mg/dl (30-150); VLDL Cholesterol 38 mg/dL (0-40)
[2022-05-18 17:35] LABS: Direct LDL Cholesterol 78.29 mg/dL (100-129)
[2022-05-18 17:55] LABS: Thyroid Stimulating Hormone 1.91 uIU/mL (0.465-4.68)
== END ==
PROVIDERS: PCP Emergency Medicine; Visit Provider Nurse Practitioner
DX: R06.00 Dyspnea, unspecified (principal); I25.810 Atherosclerosis of coronary artery bypass graft(s) without angina pectoris; I11.9 Hypertensive heart disease without heart failure; I42.8 Other cardiomyopathies; E11.9 Type 2 diabetes mellitus without complications; R94.31 Abnormal electrocardiogram [ECG] [EKG]; I63.9 Cerebral infarction, unspecified; Z95.1 Presence of aortocoronary bypass graft; Z79.4 Long term (current) use of insulin
CPT/HCPCS: 36415; 80048; 80061; 80076; 84439; 84443; 85025

== ENCOUNTER → 2022-05-23 13:21 | Outpatient (CLI) | payer OTHER, SELFPAY ==
--- NOTE | 2022-05-23 13:21 | CA_ITS ---
APPROVED REPORT EXAM: Comprehensive 2D, Doppler, and color-flow Echocardiogram Coffee Weigher: Leslie Doherty, RCS, RVS Ht: 5 ft 7 in Wt: 267lbs BSA: 2.29 BP: 127/46 mmHg Indications: Cardiomyopathy, CAD-Cabg, SAbn EKG, HTN, DM,HLD, WILHELM 2D Dimensions LVDd 5.44 cm LVEF (Visual) 42.20 % LVDs 4.30 cm LA Volume 49.60 mL Aortic Root 3.09 cm LA Volume Index 21.785475 mL/m2 (M/F) 16-34 Left Atrium 3.96 cm LVOT 2.20 cm (M/F) 1.5-2.5 M-Mode Dimensions RVDd 3.23 cm (0.9-2.6) LA Diam 3.96 cm (1.9-4.0) LVDd 6.28 cm (3.5-5.7) Ao Diam 2.82 cm (2.0-3.7) LVDs 5.12 cm (3.5-5.7) IVSd 1.07 cm (0.6-1.1) PWd 1.36 cm (0.6-1.1) EF (Teich) 39.90% EPSs 0.76 cm FS 19.90% EDV (Teich) 207.80 mL TAPSE 0.97 (<1.7) ESV (Teich) 124.90 mL LV Diastology E Decel Time 177.00 (160-240 msec) E/A Ratio 0.72 MED E' 6.90 (< 7 cm/sec) MED A' 9.40 cm/s E'/MED E' Ratio 10.38 (>14) LAT E' 9.40 (<10 cm/sec) LAT A' 8.90 cm/s E/LAT E' Ratio 7.62 (>14) Aortic Valve LVOT Max 117.00 (70-110 cm/s) LVOT VTI 24.25 cm AoV Peak Gonzales. 148.00 (50-130 cm/s) AI PHT 512.00 ms AO Peak GR. 8.70 mmHg AO Mean GR. 4.30 (<5 mmHg) AO VTI 28.40 (18-25 cm) DWAYNE (VTI) 3.25 (2.5-4.5 cm2) Mitral Valve MV A Velocity 99.00 (40-130 cm/s) E/A Ratio 0.72 MV Decel. Time 177.00 (160-240 ms) MV PHT 53.00 ms Pulmonary Valve PV Peak Velocity 86.00 (50-150 cm/s) Tricuspid Valve TR P. Velocity 8.00 cm/s Left Ventricle Left atrium is mildly enlarged, left ventricle is normal size mild concentric left ventricular atrophy, estimated ejection fraction 45%, there is abnormal septal motion. Grade 1 diastolic dysfunction seen without tissue Doppler evidence of raise left atrial pressure. Right Ventricle Right atrium and right ventricular mildly enlarged with normal contractility. Aortic Valve Aortic valve is thickened and calcified without aortic stenosis, there is mild aortic insufficiency. Mitral Valve Mitral valve is grossly normal, there is mild mitral regurgitation. Tricuspid Valve Tricuspid valve grossly normal, there is mild tricuspid regurgitation, tricuspid regurgitation jet velocity is inadequate for calculation of the right ventricular systolic pressure. Pulmonic Valve Pulmonic valve is poorly visualized. Great Vessels Aortic root is normal size. Inferior vena cava is normal size with normal inspiratory collapse. Pericardium No significant pericardial effusion noted. Conclusion 1. Mild biatrial enlargement, normal left ventricular size, mild concentric left ventricular hypertrophy, estimated ejection fraction 45% with no regional wall motion abnormality, there is abnormal septal motion. Grade 1 diastolic dysfunction seen without tissue Doppler evidence of raise left atrial pressure. 2. Mildly enlarged right ventricle with normal contractility. 3. Mild aortic mitral and tricuspid regurgitation. 4. No significant pericardial effusion noted. 5. Inferior vena cava is normal size with normal inspiratory collapse. Electronically signed by : Nirmal Leone MD 05/24/2022 06:12:21
== END ==
PROVIDERS: PCP Emergency Medicine; Visit Provider Nurse Practitioner Family
DX: R06.00 Dyspnea, unspecified (principal); I45.10 Unspecified right bundle-branch block; I25.810 Atherosclerosis of coronary artery bypass graft(s) without angina pectoris; I10 Essential (primary) hypertension; I42.9 Cardiomyopathy, unspecified; E10.69 Type 1 diabetes mellitus with other specified complication; E78.2 Mixed hyperlipidemia; R94.31 Abnormal electrocardiogram [ECG] [EKG]; F17.200 Nicotine dependence, unspecified, uncomplicated; Z95.1 Presence of aortocoronary bypass graft
CPT/HCPCS: 93306

== ENCOUNTER → 2022-10-20 10:08 | Outpatient (CLI) | payer OTHER, SELFPAY ==
--- NOTE | 2022-10-20 10:25 | US_ITS ---
FINAL REPORT TECHNIQUE: Multiple transverse and longitudinal images CLINICAL HISTORY: stomach cramps COMPARISON: None FINDINGS: Multiple gallstones are present in the gallbladder, slightly greater than 1 cm in diameter, without wall thickening or distention. No biliary ductal dilatation is appreciated. No fluid collections are seen. Limited portions of the right liver are unremarkable. Limited portions of the right kidney are unremarkable. IMPRESSION: 1. Gallstones 2. No evidence of biliary obstruction Reviewed, Interpreted and Dictated by Nikia Zamora MD Transcribed by Phyllis Boothe Authenticated and [facility]
[2022-10-20 11:18] LABS: Microscopic, Urine URINE MICROSCOPIC (MICROSCOPIC)
[2022-10-20 12:01] LABS: Basophils % 0.3 % (0.1-2.0); Eosinophils # 0.2 K/mm3 (0.0-0.4); Eosinophils % 1.2 % (0.1-12.0); Lymphocytes % 16.4 % (10-50); Mean Corpuscular HGB Conc 32.6 g/dL (31.8-35.4); Mean Corpuscular Hemoglobin 29.7 pg (27.0-31.2); Mean Corpuscular Volume 91.2 fl (80-94); Mean Platelet Volume 8.2 fl (7.4-10.4); Monocytes # 0.8 K/mm3 (0.1-1.0); Monocytes % 6.3 % (1.7-9.3); Neutrophils # 9.4 K/mm3 (1.8-7.8); Neutrophils % 75.8 % (37.0-80.0); Platelet Count 369 K/mm3 (142-424); Red Blood Count 4.39 M/mm3 (4.60-6.20); Red Cell Distribution Width 13.6 % (11.5-17.5); White Blood Count 12.3 K/mm3 (4.8-10.8)
[2022-10-20 12:09] LABS: Appearance,Urine CLEAR (Clear); Bilirubin,Urine Negative (Negative); Blood, Urine TRACE-I (Negative); Color,Urine YELLOW (Yellow); Glucose,Urine (UA) Negative (Negative); Ketones,Urine Negative (Negative); Leukocyte Esterase,Urine Negative (Negative); Nitrate,Urine Negative (Negative); Protein,Urine TRACE (Negative); Urobilinogen,Urine 0.2 EU/dl (0.2)
[2022-10-20 12:13] LABS: Albumin Level 4.5 g/dl (3.5-5.0); Chloride 105 mmol/L (98-107); Potassium 5.4 mmoL/L (3.5-5.1); Sodium 138 mmol/L (136-145)
[2022-10-20 12:15] LABS: Blood Urea Nitrogen 22 mg/dl (9-20); Estimated Glomerular Filt Rate 98 ml/min (>60); GFR (African American) 118 ML/MIN (>60)
[2022-10-20 12:16] LABS: Anion Gap 12.4 mEq/L (5-15); Calcium 10.2 mg/dl (8.4-10.2); Carbon Dioxide 26 mmol/L (22.0-30.0); Glucose 180 mg/dl (74-100); Phosphorous 4.1 mg/dl (2.5-4.5)
[2022-10-20 12:20] LABS: Creatinine,Urine Random 110 mg/dL (Not Estab.)
[2022-10-20 12:30] LABS: Bacteria,Urine Trace /lpf; RBC,Urine Occasional #/hpf (0-3); Squamous Epithelial Cell,Urine Occasional #/hpf (0-5); WBC,Urine Occasional #/hpf (0-3)
== END ==
PROVIDERS: Internal Medicine Nephrology; PCP Emergency Medicine; Visit Provider Emergency Medicine
DX: R10.9 Unspecified abdominal pain (principal); R80.9 Proteinuria, unspecified
CPT/HCPCS: 36415; 76705; 80069; 81001; 82570; 84155; 85025

== ENCOUNTER 2023-09-19 09:05 | Outpatient (CLI) | payer OTHER, SELFPAY ==
[2023-09-19 10:04] LABS: Basophils # 0.1 K/mm3 (0-0.2); Basophils % 0.5 % (0.1-2.0); Eosinophils # 0.1 K/mm3 (0.0-0.4); Eosinophils % 1.3 % (0.1-12.0); Hematocrit 37.1 % (42.0-52.0); Hemoglobin 12.3 g/dL (14.1-18.0); Lymphocytes # 1.7 K/mm3 (0.7-4.5); Lymphocytes % 15.5 % (10-50); Mean Corpuscular HGB Conc 33.1 g/dL (31.8-35.4); Mean Corpuscular Hemoglobin 31.6 pg (27.0-31.2); Mean Corpuscular Volume 95.6 fl (80-94); Mean Platelet Volume 7.9 fl (7.4-10.4); Monocytes # 0.6 K/mm3 (0.1-1.0); Neutrophils # 8.3 K/mm3 (1.8-7.8); Neutrophils % 76.8 % (37.0-80.0); Platelet Count 372 K/mm3 (142-424); Red Blood Count 3.88 M/mm3 (4.60-6.20); Red Cell Distribution Width 14.5 % (11.5-17.5); White Blood Count 10.8 K/mm3 (4.8-10.8)
[2023-09-19 11:07] LABS: Chloride 101 mmol/L (98-107); Potassium 5.4 mmoL/L (3.5-5.1); Sodium 133 mmol/L (136-145)
[2023-09-19 11:09] LABS: Alanine Aminotransferase 24 U/L (12-78); Aspartate Amino Transferase 20 U/L (17-59); Bilirubin,Unconjugated 0.3 mg/dL (0.0-1.1); Blood Urea Nitrogen 28 mg/dl (9-20); Estimated Glomerular Filt Rate 61 ml/min (>60); GFR (African American) 74 ML/MIN (>60)
[2023-09-19 11:10] LABS: Alkaline Phosphatase 84 U/L (38-126); Anion Gap 13.4 mEq/L (5-15); Bilirubin,Indirect 0.2 mg/dL (0.0-0.9); Bilirubin,Total 0.2 mg/dl (0.2-1.3); Calcium 10.2 mg/dl (8.4-10.2); Carbon Dioxide 24 mmol/L (22.0-30.0); Cholesterol 173 mg/dl (140-200); Glucose 265 mg/dl (74-100); HDL Cholesterol 29 mg/dl (40-60); Magnesium 1.8 mg/dl (1.6-2.3); Total Protein,Serum 6.5 g/dl (6.3-8.2); Triglycerides 233 mg/dl (30-150); VLDL Cholesterol 47 mg/dL (0-40)
[2023-09-19 11:21] LABS: Direct LDL Cholesterol 94.76 mg/dL (100-129)
[2023-09-19 11:28] LABS: Free T4 (Free Thyroxine) 0.95 ng/dl (0.78-2.19)
[2023-09-19 11:40] LABS: Thyroid Stimulating Hormone 1.86 uIU/mL (0.465-4.68)
== END 2023-09-19 23:59 | disposition home or self-care (01) ==
PROVIDERS: PCP Internal Medicine; Visit Provider Nurse Practitioner
DX: R94.31 Abnormal electrocardiogram [ECG] [EKG] (principal); R42 Dizziness and giddiness; I25.810 Atherosclerosis of coronary artery bypass graft(s) without angina pectoris; Z95.1 Presence of aortocoronary bypass graft; I42.9 Cardiomyopathy, unspecified; R06.00 Dyspnea, unspecified; I73.9 Peripheral vascular disease, unspecified; E10.69 Type 1 diabetes mellitus with other specified complication; Z79.4 Long term (current) use of insulin; E78.2 Mixed hyperlipidemia; I10 Essential (primary) hypertension; Z57.31 Occupational exposure to environmental tobacco smoke
CPT/HCPCS: 36415; 80048; 80061; 80076; 83735; 84439; 84443; 85025; 93270

== ENCOUNTER 2023-09-29 10:48 | Outpatient (CLI) | payer OTHER, SELFPAY ==
--- NOTE | 2023-09-29 10:48 | CA_ITS ---
APPROVED REPORT EXAM: Comprehensive 2D, Doppler, and color-flow Echocardiogram Home Advisor: Leslie Doherty, RCS, RVS Ht: 5 ft 7 in Wt: 213lbs BSA: 2.08 BP: 111/61 mmHg Indications: cad, cabg, cm,dyspnea, abn ekg, HTN 2D Dimensions IVSd 1.21 cm LVEF (Visual) 51.80 % PWd 0.91 cm EF AP4 36.60 % LVDd 5.44 cm GL Strain -20.1 % LVDs 3.98 cm Left Atrium 3.55 cm M-Mode Dimensions RVDd 1.96 cm (0.9-2.6) LA Diam 3.75 cm (1.9-4.0) LVDd 6.41 cm (3.5-5.7) LVDs 4.48 cm (3.5-5.7) IVSd 1.08 cm (0.6-1.1) PWd 1.08 cm (0.6-1.1) EF (Teich) 56.30% EPSs 1.21 cm FS 30.10% EDV (Teich) 209.30 mL TAPSE 1.30 (<1.7) ESV (Teich) 91.50 mL LV Diastology E Decel Time 223 (160-240 msec) E/A Ratio 0.75 MED A' 8.90 cm/s LAT A' 10.10 cm/s Aortic Valve DWAYNE Index 1.18 cm2/m2 AoV Peak Gonzales. 122.0 (50-130 cm/s) AI PHT 457.00 ms AO Peak GR. 6.00 mmHg AO Mean GR. 3.00 (<5 mmHg) AO VTI 23.1 (18-25 cm) DWAYNE (VTI) 2.52 (2.5-4.5 cm2) Mitral Valve MV A Velocity 89.0 (40-130 cm/s) E/A Ratio 0.75 MV Mean Gr. 2.80 (<2mmHg) Pulmonary Valve PV Peak Velocity 96.0 (50-150 cm/s) Left Ventricle The left ventricle is normal size. Left ventricular systolic function is mildly decreased. There is increased LV wall thickness. There is moderate hypokinesis of the inferior and inferoseptal LV christian. Grade 1 diastolic dysfunction is present. LVEF is 45%. Right Ventricle The right ventricle is normal size. The right ventricular systolic function is normal. Atria The left atrium size is normal. The right atrium size is normal. There is no Doppler evidence of interatrial shunt. Aortic Valve The aortic valve is mildly thickened. There is no aortic valvular stenosis. Mild aortic regurgitation. Mitral Valve The mitral valve leaflets are mildly thickened. No evidence of mitral valve stenosis. Mild mitral regurgitation. Tricuspid Valve The tricuspid valve leaflets are thin and pliable. Trace tricuspid regurgitation. There is insufficient TR jet to estimate RVSP. Pulmonic Valve The pulmonary valve is normal in structure. Trace pulmonic regurgitation. Great Vessels The aortic root is normal in size. The ascending aorta is not well-visualized. IVC is normal in size and collapses >50% with inspiration. Pericardium There is no pericardial effusion. Other Information Study Quality: Fair Conclusion Mild reduction in LV systolic function (LVVEF 45%). Moderate hypokinesis of the inferior and inferoseptal LV christian. Mild AI, mild MR. Compared to prior TTE from 05/23/2022, the LVEF is overall unchanged. Electronically signed by : Marisa Diaz MD 10/03/2023 23:07:49
--- NOTE | 2023-09-29 11:20 | NM_ITS ---
APPROVED REPORT Exam: Nuclear Stress Test Indication: CAD, H/O IA, CABG, HTN, DM, HYPERLIPIDEMIA, C.P., SOB, ABN EKG Patient [facility]: Out[facility] [place]:Nettie Pina, ARRT RT (R)(N)(M) Ht: 5 ft 7 in Wt: 212 lbs HR: 70 bpm BP: 159/57 mmHg BSA: 2.07 m2 Rhythm: NSR TID: 1.01 BMI: 33.2 History: CAD, H/O IA, CABG, HTN, DM, HYPERLIPIDEMIA, C.P., SOB, ABN EKG Procedure: Patient received 0.4 mg of intravenous Adenosine, resting heart rate 70 bpm, resting blood pressure 159/57 mmHg, with Lexiscan maximum heart rate achieved was 156 bpm which is % of the maximum predicted heart rate and blood pressure was 178/72 mmHg. With Lexiscan, patient denied any complaint of chest pain. Cardiac Stress and Resting SPECT Images: Cardiac Stress and Resting SPECT images were obtained using technetium 99m Myoview 32.4 mCi stress and 10.08 mCi at rest. Resting and stress imaging in supine and prone positions demonstrate a medium sized, moderate, fixed perfusion defect in the basal to mid septal LV wall. Gated imaging demonstrates normal global LV systolic function. There is moderate hypokinesis of the basal to mid septal LV wall. LVEF cannot be estimated due to ectopy at the time of image acquisition. Conclusion: Medium sized, moderate, fixed perfusion defect in the basal to mid septal LV wall. Gated imaging demonstrates normal global LV systolic function. There is moderate hypokinesis of the basal to mid septal LV wall. LVEF cannot be estimated due to ectopy at the time of image acquisition. Electronically signed by : Marisa Diaz MD 10/02/2023 12:05:23
[2023-09-29] MEDS: SODIUM CHLORIDE 0.9% 10ML SYR (RAD ONLY) 10 ML IV ×2 (11:30→13:00)
[2023-09-29] MEDS: REGADENOSON 0.4MG/5ML SYRINGE 0.4 MG IV (13:00)
--- NOTE | 2023-09-29 13:12 | CA_ITS ---
APPROVED REPORT Exam: Pharmacologic Technologist: Mona Keating, Ht: 5 ft 7 in Wt: 213 lbs BSA: 2.08 m2 HR: 71 bpm BP: 159/57 mmHg Rhythm: NSR Medical History Medications: Amlodipine,,,,, Lisinopril,,,,, Aspirin,,,,, Pravastatin,,,,, Metoprolol Tartrate,,,,, Ropinirole,,,,, XaRELTO,,,,, TAMSULOSIN,,,,, INSULIN,,,,, LanTUS,,,,, Nitroglycerin,,,,, Isosorbide Monoitrate ER,,,,, Stress Test Details Test: LEXISCAN Reason for pharmacologic stress test: physical limitation. HR Resting HR: 70 bpm Max Heart Rate (APMHR): 156 bpm Max HR Achieved: 156 bpm Target HR (85% APMHR): 133 bpm % of APMHR: 100 Recovery HR: 78 bpm BP Resting BP: 159.0/57.0 mmHg Max BP: 178.0/72.0 mmHg Recovery BP: 167.0/60.0 mmHg ECG Resting ECG: NSR, RBBB Stress ECG: No significant ST changes Arrhythmia: PVCs Clinical Exercise duration: 04:00 min Highest Stage Achieved: Stress ECG Conclusion Symptoms: SOA, hand discomfort. No CP. Arrhythmias/Ectop: PVC. ST-T Changes: No significant ST changes. Conclusion: Unremarkable Lexiscan stress. Myoview images are reported separately. Test Summary REST 03:10 . . 70 . 159/ 57 . . Stage 1 01:00 . . 75 . . . . Stage 2 01:00 . . 88 . . . . Stage 3 01:00 . . 83 . 163/ 59 . . Stage 4 01:00 . . 79 . 166/ 61 . Stop exercise at 04:00 RECOVERY 01:00 . . 79 . 178/ 72 . . RECOVERY 02:00 . . 78 . 162/ 65 . . RECOVERY 03:00 . . 75 . 162/ 65 . . RECOVERY 03:19 . . 77 . 167/ 60 . . Electronically signed by : Marisa Diaz MD 10/02/2023 12:02:35
[2023-09-29] MEDS: ISOTOPE MYOVIEW (PER STUDY) 1 DOSE IV (13:44)
== END 2023-09-29 23:59 | disposition home or self-care (01) ==
LOC: RT 10:48
PROVIDERS: PCP Internal Medicine; Visit Provider Nurse Practitioner
DX: R94.31 Abnormal electrocardiogram [ECG] [EKG] (principal); I42.8 Other cardiomyopathies; R06.00 Dyspnea, unspecified; I11.9 Hypertensive heart disease without heart failure; I25.810 Atherosclerosis of coronary artery bypass graft(s) without angina pectoris; I73.9 Peripheral vascular disease, unspecified; Z95.1 Presence of aortocoronary bypass graft; E78.2 Mixed hyperlipidemia
CPT/HCPCS: 78452; 93017; 93018; 93306; A9502; J2785

== ENCOUNTER 2023-10-04 10:37 | Day surgery (SDC) | payer OTHER, SELFPAY ==
--- NOTE | 2023-10-03 08:50 | SUR.PREOP ---
Pt called for pre-op instructions regarding pacemaker insertion tomorrow, educated pt on instructions, stated he might not have a ride and stated Ill just start walking Educated pt he must have a spotter driver for this surgery and he cannot walk home, educated pt that if he does not have a ride he must reschedule.
[2023-10-04] VITALS (7 sets, daily range): BP systolic 155–170; BP diastolic 60–87; PULSE 84–93; RESP 17–19; TEMP 36.4; O2SAT 95–98; BMI 34.1
--- NOTE | 2023-10-04 07:16 | IR_ITS ---
APPROVED REPORT Patient Location: Outpatient Still Operator Gin: CALVIN Amezquita RT (R) PROCEDURES 1. Pocket formation for biventricular pacemaker generator with cardiac resynchronization therapy. 2. Placement of atrial sensing and pacing lead into the right atrial appendage. 3. Placement of a right ventricular sensing, pacing lead in the right ventricular apex. 4. Placement of left ventricular sensing pacing lead via the coronary sinus. 5. Permanent cardiac resynchronization therapy with biventricular pacemaker. INDICATION SINUS PAUSES ON EVENT MONITOR, RIGHT BUNDLE BRANCH BLOCK, 3RD DEGREE HEART BLOCK, EF 40%, Anticipated RV pacing greater than 20 to 40% Informed consent was obtained prior to the procedure. COMPLICATIONS NONE Estimated Blood Loss: LESS THAN 10 ML TECHNIQUE 1% Lidocaine with epinephrine used to anesthetized the left anterior aspect of the chest. Scalpel was used to make the initial cutaneous incision while electrocautery was used to dissect down tinto the fascia. The fascia was lifted off the pectoralis muscle and digitally manipulated creating a pocket for the pacemaker. The patient was then placed in Trendelenburg position and the subclavian vein was accessed three times via the Selinger technique, there are three wires in the vein. A 9.5 Moroccan sheath and dilator was then placed over one of the wires while keeping the other two wires in place within the subclavian vein. The dilator was removed from the sheath. Using fluoroscopic guidance, contrast was used to visualize the coronary sinus, the left ventricular lead was placed into the coronary sinus. Electronic interrogation proved acceptable thresholds and voltage within the lead. Using 3-0 silk, the left ventricular lead was then secured into place and sheath peeled away. A 6 Moroccan sheath was placed under fluoroscopic guidance into the subclavian vein over one of the wires while keeping the other wire in place within the subclavian vein. The dilator was removed from the sheath. Using fluoroscopic guidance, the ventricular lead was placed into the right ventricular apex, screwed and secured into place. Electronic interrogation proved acceptable thresholds and voltage within the lead. Using 3-0 silk, the ventricular lead was then secured into place. Lead was secured to the facia using the 3-0 silk. Following this, the sheath was pealed away. An additional 6 Moroccan fresh sheath and dilator was placed over the existing wire. Using fluoroscopic guidance, the atrial lead was the placed into the right atrial appendage and screwed and secured in place. Electrical interrogation demonstrated acceptable thresholds and voltage number. The atrial lead was then secured into place using 3-0 silk. 1 gram of Ancef was used to flush the pocket. Following the pacemaker generator being secured to the fascia and in place, Monocryl was used to close the subcutaneous layers while karin were used to close the cutaneous layer. A pressure dressing was placed and the patient was transferred to the postop holding area in stable condition for postoperative care. INTERROGATION Generator Model number: BugSense MP [id number] Generator Serial number: [id number] Atrial lead model number: Tendril STS 8TC Atrial lead serial number: [id number] P-wave: 1.5 mV Impedance: 540 OHMS Threshold: 1.0V @ 0.4ms Right Ventricular lead model number: Tendril STS 8TC Right Ventricular lead serial number: [id number] R-wave: 12 mV Impedance: 750 Ohms Threshold: 0.75V @ 0.4ms Left Ventricular lead model number: Quartet [id number] Left Ventricular lead serial number: [id number] R-wave: Impedance: 1025 Ohms Threshold: 0.75V @ 0.4ms Pacing Parameters: Mode: DDDR Base/Max Track:60 ppm / 130 ppm No diaphragmatic stimulation at 10 volts. IMPRESSION 1. Successful Pocket formation for biventricular pacemaker generator with cardiac resynchronization therapy. 2. Successful Placement of atrial sensing and pacing lead into the right atrial appendage. 3. Successful Placement of a right ventricular sensing, pacing lead in the right ventricular apex. 4. Successful Placement of left ventricular sensing pacing lead via the coronary sinus. 5. Successful Permanent cardiac resynchronization therapy with biventricular pacemaker. PLAN 1. Postop wound care. Electronically signed by : Mendoza Workman MD 10/06/2023 12:19:13
[2023-10-04 11:41] LABS: Chloride 108 mmol/L (98-107); Sodium 138 mmol/L (136-145)
[2023-10-04 11:42] LABS: Basophils # 0.1 K/mm3 (0-0.2); Basophils % 0.7 % (0.1-2.0); Eosinophils # 0.1 K/mm3 (0.0-0.4); Eosinophils % 0.9 % (0.1-12.0); Hematocrit 36.9 % (42.0-52.0); Hemoglobin 12.3 g/dL (14.1-18.0); Lymphocytes % 19.3 % (10-50); Mean Corpuscular HGB Conc 33.4 g/dL (31.8-35.4); Mean Corpuscular Hemoglobin 31.8 pg (27.0-31.2); Mean Corpuscular Volume 95.1 fl (80-94); Mean Platelet Volume 7.4 fl (7.4-10.4); Monocytes # 0.6 K/mm3 (0.1-1.0); Monocytes % 6.3 % (1.7-9.3); Neutrophils # 7.4 K/mm3 (1.8-7.8); Neutrophils % 72.7 % (37.0-80.0); Platelet Count 336 K/mm3 (142-424); Red Blood Count 3.88 M/mm3 (4.60-6.20); White Blood Count 10.2 K/mm3 (4.8-10.8)
[2023-10-04 11:44] LABS: Blood Urea Nitrogen 24 mg/dl (9-20); Creatinine Clearance Estimated 104 mL/min (50-200); Estimated Glomerular Filt Rate 75 ml/min (>60); GFR (African American) 91 ML/MIN (>60)
[2023-10-04 11:45] LABS: Calcium 9.6 mg/dl (8.4-10.2); Carbon Dioxide 23 mmol/L (22.0-30.0); Glucose 187 mg/dl (74-100)
[2023-10-04] MEDS: CEFAZOLIN SODIUM 1 GM in 0.9 % SODIUM CHLORIDE 50 ML IV (15:36)
[2023-10-04] MEDS: LIDOCAINE 1% W/EPI 1:100,000 20ML VIAL 20 ML SQ (15:45)
[2023-10-04] MEDS: CEFAZOLIN 1GM VIAL 1 GM TP (16:10)
--- NOTE | 2023-10-04 16:19 | XR_ITS ---
PROCEDURE INFORMATION: Exam: XR Chest Exam date and time: 10/04/2023 4:32 PM Age: 63 years old Clinical indication: Device placement; Cardiac pacemaker placement or adjustment; Prior surgery; Surgery date: Post-operative (0-2 days); Surgery type: Post ppm TECHNIQUE: Imaging protocol: Radiologic exam of the chest. Views: 1 view. COMPARISON: CR XR CHEST PORTABLE 10/30/2021 5:27 AM FINDINGS: Tubes, catheters and devices: Left-sided cardiac device and 3 lead wires are well positioned without complication. Lungs: No consolidation or lung nodules. Pleural spaces: No pleural effusion. No pneumothorax. Heart/Mediastinum: Cardiomegaly. Bones/joints: No fractures or bone lesions. IMPRESSION: 1. Cardiac pacemaker and 3 lead wires have been placed without complication and are well positioned. 2. Cardiomegaly. 3. No airspace consolidation. No pneumothorax.
--- NOTE | 2023-10-04 16:33 | EXP.ANES.CKL ---
[facility] Disclaimer: The information contained in this section may have been updated after the patient was seen, as this information can be updated by other users. Medical History Right bundle branch block Abnormal EKG CAD (coronary artery disease) Abnormal cardiovascular stress test Ex-smoker Atypical angina Dyspnea Right arm pain Surgical History Hx of CABG Social History Smoking Status: Never smoker second hand exposure: Yes alcohol intake: never substance use type: marijuana current occupational status: retired Travel in the last 8 weeks: None household members: none housing: house current occupational exposures/hazards: No caffeine: Yes [facility] Anesthesia Checklist Patient Identification Patient Identification: Arm Band Structural Data Admitted From: Home Planned Operative Procedure/s: Biventricular Pacemaker Consent for Planned Operative Procedure(s) Verified: Yes Verified Documents: Surgical Consent and History and Physical NPO Status Verified Time NPO: 00:00 Additional verifications Anesthesia Reactions: No Hx Blood Transfusions: No Blood Transfusion Reaction: No Airway Assessment Mallampati Score:: Class II C-Spine Mobility Assessed: Yes TMJ Mobility Assessed: Yes Dentition: Edentulous Neurological Assessment Level of Consciousness: Awake, Alert and Appropriate Anesthesia Plan Anesthesia Risk discussed: Yes Anesthesia Plan: Verified ASA Class: IV Anesthesia Type: MAC
[2023-10-04] MEDS: IOPAMIDOL-370 (76%);100ML BOTTLE 10 ML IV (17:29)
== END 2023-10-04 17:48 | disposition home or self-care (01) ==
PROVIDERS: PCP Internal Medicine; Visit Provider Internal Medicine
DX: I44.2 Atrioventricular block, complete (principal); E11.9 Type 2 diabetes mellitus without complications; Z79.4 Long term (current) use of insulin; I50.20 Unspecified systolic (congestive) heart failure; I25.10 Atherosclerotic heart disease of native coronary artery without angina pectoris; Z95.1 Presence of aortocoronary bypass graft; I42.9 Cardiomyopathy, unspecified; I25.810 Atherosclerosis of coronary artery bypass graft(s) without angina pectoris; I70.203 Unspecified atherosclerosis of native arteries of extremities, bilateral legs; I11.0 Hypertensive heart disease with heart failure
CPT/HCPCS: 33208; 33225; 71045; 80048; 85025; C1769; C1898; C1900; C2621; J2704; Q9967

== ENCOUNTER 2024-01-05 11:45 | Outpatient (CLI) | payer OTHER, SELFPAY ==
[2024-01-05 18:31] LABS: Alanine Aminotransferase 19 U/L (12-78); Albumin Level 3.8 g/dl (3.5-5.0); Albumin/Globulin Ratio 1.5 (1.1-1.8); Alkaline Phosphatase 68 U/L (38-126); Anion Gap 4.5 mEq/L (5-15); Aspartate Amino Transferase 18 U/L (17-59); Bilirubin,Total 0.6 mg/dl (0.2-1.3); Blood Urea Nitrogen 29 mg/dl (9-20); Calcium 9.4 mg/dl (8.4-10.2); Carbon Dioxide 22 mmol/L (22.0-30.0); Chloride 109 mmol/L (98-107); Estimated Glomerular Filt Rate 61 ml/min (>60); GFR (African American) 74 ML/MIN (>60); Globulin 2.5 g/dL (1.3-3.2); Glucose 149 mg/dl (74-100); Potassium 5.5 mmoL/L (3.5-5.1); Sodium 130 mmol/L (136-145); Total Protein,Serum 6.3 g/dl (6.3-8.2)
[2024-01-05 18:37] LABS: HIV (1&2) Antibody Rapid NONREACTIVE (NONREACTIVE)
[2024-01-05 19:13] LABS: Hemoglobin A1C 8.1 % (4.0-6.0)
[2024-01-07 08:10] LABS: HBsAg Screen Negative (Negative); HCV Ab Non Reactive (Non Reactive); Hep A Ab, IGM Negative (Negative); Hep B Core Ab, IgM Negative (Negative)
== END 2024-01-05 23:59 | disposition home or self-care (01) ==
LOC: LAB.DROPOF 01-06 10:14
PROVIDERS: PCP Family Medicine; Visit Provider Family Medicine
DX: E10.69 Type 1 diabetes mellitus with other specified complication (principal); E66.9 Obesity, unspecified; I50.20 Unspecified systolic (congestive) heart failure; I42.9 Cardiomyopathy, unspecified; Z95.1 Presence of aortocoronary bypass graft; I25.810 Atherosclerosis of coronary artery bypass graft(s) without angina pectoris; I73.9 Peripheral vascular disease, unspecified; Z87.891 Personal history of nicotine dependence; E78.2 Mixed hyperlipidemia; I65.23 Occlusion and stenosis of bilateral carotid arteries; I10 Essential (primary) hypertension
CPT/HCPCS: 80053; 80074; 83036; 86803; 87389

== ENCOUNTER 2024-08-08 11:34 | Outpatient (CLI) | payer MEDICARE, OTHER, SELFPAY ==
--- NOTE | 2024-08-08 | CA_ITS ---
APPROVED REPORT Exam: Pharmacologic Technologist: Mona Keating Ht: 5 ft 7 in Wt: 213 lbs BSA: 2.08 m2 Stress Test Details Test: Lexiscan Reason for pharmacologic stress test: physical limitation. HR Resting HR: 78 bpm Max Heart Rate (APMHR): 155 bpm Max HR Achieved: 99 bpm Target HR (85% APMHR): 132 bpm % of APMHR: 64 Recovery HR: 81 bpm BP Resting BP: 162.0/50.0 mmHg Max BP: 176.0/67.0 mmHg Recovery BP: 156.0/78.0 mmHg ECG Resting ECG: V-paced. 78 bpm. Stress ECG Conclusion Symptoms: SOA, nausea. Arrhythmias/Ectopy: None. Electronically signed by : Marisa Diaz MD 08/12/2024 15:59:21
--- NOTE | 2024-08-08 12:00 | NM_ITS ---
APPROVED REPORT Exam: Nuclear Stress Test Indication: SOB, Fatigue, CAD, Hx of IA, CABG, HTN, DM, High cholesterol, Tobacco use Patient Location: Outpatient Stress Tech: Mona Mcdonald OR Tech:Aniyah Etienne, ARRT, RT (R)(N) Ht: 5 ft 7 in Wt: 212 lbs HR: 79 bpm BP: 162/50 mmHg BSA: 2.07 m2 TID: 1.05 BMI: 33.2 History: SOB, Fatigue, CAD, Hx of IA, CABG, HTN, DM, High cholesterol, Tobacco use Procedure: Patient received 0.4 mg of intravenous Lexiscan, resting heart rate 79 bpm, resting blood pressure 162/50 mmHg, with Lexiscan maximum heart rate achieved was 100 bpm which is % of the maximum predicted heart rate and blood pressure was 176/67 mmHg. With Lexiscan, patient denied any complaint of chest pain. Cardiac Stress and Resting SPECT Images: Cardiac Stress and Resting SPECT images were obtained using technetium 99m Myoview 29.2 mCi stress and 10.89 mCi at rest. Resting and stress imaging in supine and prone positions demonstrate a medium sized, moderate, predominantly fixed perfusion defect in the basal to mid septal LV wall. There is a small region of reversibility towards the distal septal wall. Gated imaging demonstrates normal global LV systolic function. There is mild hypokinesis of the basal to mid septal LV wall. LVEF is calculated at 56%. Conclusion: Medium sized, moderate, predominantly fixed perfusion defect in the basal to mid septal LV wall. There is a small region of reversibility towards the distal septal wall. Findings are suggestive of partial reversible ischemia. Gated imaging demonstrates normal global LV systolic function. There is mild hypokinesis of the basal to mid septal LV wall. LVEF is calculated at 56%. Electronically signed by : Marisa Diaz MD 08/12/2024 15:58:59
--- NOTE | 2024-08-08 12:41 | US_ITS ---
FINAL REPORT CLINICAL HISTORY: CLAUDICATION,REST PAIN,DM,HTN,HLD,CAD,EX SMOKER FINDINGS: ANKLE-BRACHIAL PRESSURE INDICES Pressure indices are as follows: RIGHT LOWER EXTREMITY: Ankle-brachial pressure index: 0.70 Comments: Moderate LEFT LOWER EXTREMITY: Ankle-brachial pressure index: 0.49 Comments: Severe IMPRESSION: Obstructive peripheral vascular disease is moderate in the right lower extremity and severe in the left. Reviewed, Interpreted and Dictated by Julien Vásquez MD Transcribed by Nallely Ricks Authenticated and [facility]
[2024-08-08] MEDS: REGADENOSON 0.4MG/5ML SYRINGE 0.4 MG IV (14:14)
[2024-08-08] MEDS: ISOTOPE MYOVIEW (PER STUDY) 1 DOSE IV (14:14)
[2024-08-08] MEDS: SODIUM CHLORIDE 0.9% 10ML SYR (RAD ONLY) 10 ML IV ×2 (14:15)
== END 2024-08-08 23:59 | disposition home or self-care (01) ==
LOC: RAD 11:36
PROVIDERS: PCP Family Medicine; Visit Provider Physician Assistant
DX: I70.223 Atherosclerosis of native arteries of extremities with rest pain, bilateral legs (principal); Z87.891 Personal history of nicotine dependence; E11.9 Type 2 diabetes mellitus without complications; E78.5 Hyperlipidemia, unspecified; I11.0 Hypertensive heart disease with heart failure; I50.20 Unspecified systolic (congestive) heart failure; I25.810 Atherosclerosis of coronary artery bypass graft(s) without angina pectoris; I42.9 Cardiomyopathy, unspecified; I25.2 Old myocardial infarction; Z95.1 Presence of aortocoronary bypass graft; R06.02 Shortness of breath; R53.83 Other fatigue; R94.31 Abnormal electrocardiogram [ECG] [EKG]
CPT/HCPCS: 78452; 93017; 93018; 93923; A9502; J2785

== ENCOUNTER 2024-09-12 17:11 | Observation (INO) | payer MEDICARE, OTHER, SELFPAY ==
[2024-09-12] VITALS (68 sets, daily range): BP systolic 118–166; BP diastolic 49–86; PULSE 60–111; RESP 14–22; TEMP 36.4; O2SAT 90–98; BMI 33.3; BMI 30.8
--- NOTE | 2024-09-12 07:08 | IR_ITS ---
APPROVED REPORT Patient Location: Outpatient PROCEDURES Right femoral arterial access Right retrograde femoral angiogram Catheter placed in the abdominal aorta Abdominal aortography Repositioning of the catheter in the abdominal aorta Bilateral iliofemoral runoff Left femoral arterial access Left retrograde femoral angiogram Intravascular lithotripsy of the left common iliac artery Bare-metal stent deployment to the left common iliac artery Bare-metal stent deployment to the left external iliac artery INDICATION Abnormal SIL, Calcified left common iliac artery, Left iliofemoral disease, Chronically occluded left superficial femoral artery, Tensas claudication class III Informed consent was obtained prior to the procedure. COMPLICATIONS NONE Estimated Blood Loss: LESS THAN 10 ML TECHNIQUE 1% lidocaine used anesthetize right groin the right femoral nerve is accessed via the central technique and a 5 Palauan sheath is placed in the right femoral artery. Retrograde angiography was performed. A pigtail catheter was advanced into the abdominal aorta where abdominal aortography was performed. The catheter was then repositioned and bilateral iliofemoral runoff was performed. Following this 1% lidocaine was used to anesthetize the left groin the left femoral artery was accessed via the central technique and a 4 Palauan sheath was initially placed in the left femoral artery. This was then upsized to a 6 Palauan sheath and then ultimately a 7 Palauan sheath. Therapeutic heparin was administered giving a therapeutic ACT. With difficulty an 035 wire was able to be passed through the left external iliac artery. There was extensive stenosis and antegrade wire placement could not be advanced despite a hydrophilic advantage wire. Ultimately an 8 mm balloon was used to predilate the stenosis in the left external iliac artery which allowed passage of an 8 mm x 30 mm intravascular lithotripsy balloon to then deliver 300 pulsations throughout the left common iliac artery and left external iliac artery. An 8 mm x 57 mm balloon mounted bare-metal stent was deployed in the ostium of the left common iliac artery and deployed at 18 eliz. An additional 8 mm x 57 mm bare-metal balloon mounted stent was then placed distal to this and then deployed at 14 eliz. The balloon was advanced and deployed at 18 eliz to match the 2 stents. Excellent angiographic results were obtained. Following this the apparatus was removed the patient was transferred to the postop holding in stable condition for bilateral sheath removal and postoperative care ANGIOGRAPHIC RESULTS Distal abdominal aorta is atheromatous calcified with no plaque greater than 10% ` Right common iliac artery has a proximal 30% calcified concentric stenosis. The right internal iliac artery is calcified and patent. The right external iliac artery has a concentric 50% stenosis with no Navarro stenotic gradient. The right common femoral artery is calcified with 40% eccentric stenoses. The right profunda femoris artery is patent right superficial femoral artery is calcified with 60% eccentric focal plaque. The right popliteal artery has diffuse 50% calcified plaque. There is two-vessel runoff below the knee on the right side. The right posterior tibialis artery is occluded ` Left common iliac artery has a proximal heavily calcified 80 to 90% stenosis followed by 40% stenosis followed by patent stent in its midportion. The left internal iliac artery is occluded. The left external iliac artery has a stent in its mid to distal portion which has haziness and at least a 50% angiographic stenosis. The left common femoral artery has an eccentric calcified 50% stenosis. The left profunda femoris artery is patent the left superficial femoral artery is ostially occluded and occluded throughout its entire course. The popliteal artery reconstitutes at Alex's canal via the collaterals from the profunda femoris. The popliteal artery has calcified 80 to 90% focal stenoses. There is two-vessel runoff below the knee on the left from the peroneal artery and the posterior tibialis artery. The anterior tibialis artery is proximally occluded and then is collateralized from the posterior tibialis artery distally IMPRESSION Peripheral artery disease as described above Successful intravascular lithotripsy of the left common and external iliac artery followed by 2 contiguous balloon mounted bare-metal stents reducing the stenosis to 0% PLAN 1. Xarelto 2.5 daily plus aspirin 81 mg daily 2. LDL less than 55 to be achieved with high intensity statin 3. Avoidance of tobacco products 4. Risk factor modification 5. Cardiac rehabilitation Electronically signed by : Mendoza Workman MD 09/13/2024 13:13:35
[2024-09-12 08:42] LABS: Basophils % 0.4 % (0.1-2.0); Eosinophils # 0.1 Kmm3 (0.0-0.4); Eosinophils % 1.2 % (0.1-12.0); Hematocrit 34.4 % (42.0-52.0); Hemoglobin 11.6 g/dL (14.1-18.0); Immature Granulocytes # 0.06 10^3uL; Immature Granulocytes % 0.6 %; Lymphocytes # 1.6 K/mm3 (0.7-4.5); Lymphocytes % 15.5 % (10-50); Mean Corpuscular HGB Conc 33.7 g/dL (31.8-35.4); Mean Corpuscular Hemoglobin 31.1 pg (27.0-31.2); Mean Corpuscular Volume 92.2 fl (80-94); Monocytes # 0.9 K/mm3 (0.1-1.0); Monocytes % 8.3 % (1.7-9.3); Neutrophils # 7.8 K/mm3 (1.8-7.8); Nucleated Red Blood Cells # 0 10^3/uL; Nucleated Red Blood Cells % 0 %; Platelet Count 293 K/mm3 (142-424); Red Blood Count 3.73 M/mm3 (4.60-6.20); Red Cell Distribution Width-SD 43.8 fL; White Blood Count 10.5 K/mm3 (4.8-10.8)
[2024-09-12 08:53] LABS: Chloride 106 mmol/L (98-107); Potassium 4.7 mmoL/L (3.5-5.1); Sodium 136 mmol/L (136-145)
[2024-09-12 08:56] LABS: Anion Gap 7.7 mEq/L (5-15); Blood Urea Nitrogen 21 mg/dl (9-20); Calcium 9.3 mg/dl (8.4-10.2); Carbon Dioxide 27 mmol/L (22.0-30.0); Creatinine Clearance Estimated 101 mL/min (50-200); Estimated Glomerular Filt Rate 85 ml/min (>60); GFR (African American) 102 ML/MIN (>60); Glucose 202 mg/dl (74-100)
[2024-09-12] MEDS: 0.9 % SODIUM CHLORIDE 500 ML 25 ML IV (12:00)
[2024-09-12] MEDS: HEPARIN 1,000 UNITS/500ML NS (CATH LAB) 3000 UNIT IV (12:00)
[2024-09-12] MEDS: LIDOCAINE 1% 10ML MDV 10 ML IJ ×2 (12:01→12:19)
[2024-09-12] MEDS: diphenhydrAMINE 50MG/ML VIAL 50 MG IV (12:01)
[2024-09-12] MEDS: FENTANYL 100MCG/2ML VIAL 50 MCG IV (12:21)
[2024-09-12] MEDS: MIDAZOLAM HCL 1MG/ML 5ML VIAL 1 MG IV (12:21)
[2024-09-12] MEDS: PROPOFOL 10MG/ML 20ML VIAL 10 MG IV (13:12)
[2024-09-12] MEDS: IOPAMIDOL-250 (51%) 100ML BOT 235 ML IV (13:56)
[2024-09-12 14:05] LABS: CATHL Activated Clotting Time 224 SEC (74-125)
[2024-09-12] MEDS: MORPHINE 4MG/ML SYRINGE 4 MG IV ×2 (15:10→16:15)
[2024-09-12 16:01] LABS: Microscopic, Urine URINE MICROSCOPIC (MICROSCOPIC)
[2024-09-12 16:08] LABS: Appearance,Urine CLEAR (Clear); Bilirubin,Urine Negative (Negative); Blood, Urine 1+ (Negative); Color,Urine YELLOW (Yellow); Glucose,Urine (UA) Negative (Negative); Ketones,Urine Negative (Negative); Leukocyte Esterase,Urine Negative (Negative); Nitrate,Urine Negative (Negative); Protein,Urine Negative (Negative); Specific Gravity, Urine <= 1.005 (1.005-1.030); Urobilinogen,Urine 0.2 EU/dl (0.2)
[2024-09-12 16:24] LABS: Bacteria,Urine Trace /lpf; RBC,Urine 20-50 #/hpf (0-3); Squamous Epithelial Cell,Urine Occasional #/hpf (0-5); WBC,Urine Occasional #/hpf (0-3)
--- NOTE | 2024-09-12 17:28 | PC.NURSE ---
Pt arrived to floor with catheter builder staff via stretcher @[id number]
--- NOTE | 2024-09-12 17:40 | EXP.HP ---
History of Present Illness *Admission Date: 09/12/24 *Reason for visit:: Outpatient PCI. *History of present illness: Mono Bobby is a 64-year-old male with a medical history of PAD who presented for an outpatient cath with successful PCI to bilateral lower extremities. Dr. Workman requested admission for monitoring in light of using large gauge [place] catheters to access bilateral femoral arteries and I accepted. On my evaluation of patient, he was lying in bed calmly without acute distress. Bilateral femoral without signs of bleeding. Creatinine 0.9, GFR 85. At baseline. Vital signs stable. [facility] Disclaimer: The information contained in this section may have been updated after the patient was seen, as this information can be updated by other users. Medical History Numbness and tingling in left arm Atypical angina Right arm pain Dizziness Abnormal cardiovascular stress test Abnormal EKG Swelling of left half of scrotum Status post orchiectomy at time of left inguinal hernia repair in March 2020 Cholelithiasis Sinus pause Third degree AV block Angina at rest Elevated troponin NSTEMI (non-ST elevated myocardial infarction) Right bundle branch block CAD (coronary artery disease) Ex-smoker Dyspnea Surgical History Status post left inguinal hernia repair Concomitant orchiectomy with postoperative hematoma/seroma (slowly improving) Hx of CABG Social History (Updated 09/12/24 @ 17:45 by Keturah Parker RN) Smoking Status: Never smoker second hand exposure: Yes alcohol intake: never substance use type: marijuana current occupational status: retired Travel in the last 8 weeks?: None household members: none housing: house current occupational exposures/hazards: No caffeine: Yes Have you lived/traveled outside [place] in past 30 days?: No Contact w/someone who lives/traveled outside US past 30 days?: No Exposure to someone with infectious disease in past 14 days?: No Do you have a fever (greater than 100.4 F or 38 C)?: No Have you tested positive for COVID-19?: No Exposed to someone with COVID-19 in past 14 days?: No Do you have a sore throat?: No Do you have a cough?: No Do you have any weakness?: No Are you experiencing any nausea/vomitting?: No Do you have any diarrhea?: No Are you experiencing any unusual bleeding?: No Do you have any muscle aches/pain?: No Do you have any abdominal pain?: No Are you experiencing loss of taste or smell?: No Other Medical History Have you received the Flu Vaccine for this season: Yes Have you received the Pneumonia Vaccine: Yes Meds Home Medications and Allergies Home Medications ?Medication ?Instructions ?Recorded ?Confirmed ?Type nitroglycerin 0.4 mg sublingual 0.4 mg sublingual Q5-15M PRN chest 06/30/23 09/12/24 Rx tablet pain #30 tabs blood-glucose,promotions director,cont #1 ea 10/19/23 09/12/24 Rx (Dexcom G6 Rehab Spec) insulin syringe-needle U-100 1 mL #100 ea 12/11/23 09/12/24 Rx 31 gauge x 5/16 (BD Insulin Syringe Ultra-Fine) isosorbide mononitrate 60 mg 60 mg PO DAILY #90 tabs 03/06/24 09/12/24 Rx tablet,extended release 24 hr rivaroxaban 2.5 mg tablet (Xarelto) 2.5 mg PO BID #180 tabs 03/06/24 09/12/24 Rx pen needle, diabetic 31 gauge x #1,200 ea 05/06/24 09/12/24 Rx 3/16 (BD Ultra-Fine Mini Pen Needle) blood-glucose sensor (Dexcom G6 #3 ea 06/28/24 09/12/24 Rx Sensor device) insulin lispro protamine-lispro 12 unit (0.12 mL) SQ BID #4.5 mL 08/20/24 09/12/24 Rx 100 unit/mL (75-25) subcutaneous pen (Humalog Mix 75-25 KwikPen) blood-glucose transmitter (Dexcom #3 ea 08/27/24 09/12/24 Rx G6 Transmitter device) amlodipine 10 mg tablet 10 mg PO DAILY 09/12/24 09/12/24 History aspirin 81 mg tablet,delayed 81 mg PO DAILY 09/12/24 09/12/24 History release insulin glargine 100 unit/mL (3 28 unit SQ HS 09/12/24 09/12/24 History mL) subcutaneous pen (Lantus Solostar U-100 Insulin) lisinopril 10 mg tablet 10 mg PO DAILY 09/12/24 09/12/24 History metoprolol tartrate 100 mg tablet 100 mg PO BID 09/12/24 09/12/24 History pravastatin 40 mg tablet 40 mg PO HS 09/12/24 09/12/24 History ropinirole 1 mg tablet 1 mg PO DAILY 09/12/24 09/12/24 History tamsulosin 0.4 mg capsule 0.4 mg PO DAILY 09/12/24 09/12/24 History New Prescriptions to Start Prescriptions: Allergies Allergy/AdvReac Type Severity Reaction Status Date / Time clopidogrel (From Plavix) Allergy Mild Dizziness Verified 09/03/24 11:32 Exam Data for Last 24 hours Vital signs and Labs for Last 24 Hours: Pulse Resp BP Pulse Ox O2 Del Method O2 Flow Rate 75 16 149/71 H 95 Nasal Cannula 3 09/12/24 17:15 09/12/24 17:15 09/12/24 17:15 09/12/24 17:15 09/12/24 17:15 09/12/24 17:15 Laboratory Results - last 24 hr 09/12/24 08:35: WBC 10.5, RBC 3.73 L, Hgb 11.6 L, Hct 34.4 L, MCV 92.2, MCH 31.1, MCHC 33.7, RDW 13.0, Plt Count 293, MPV 9.0, Neut % (Auto) 74.0, Lymph % (Auto) 15.5, [place] % (Auto) 8.3, Eos % (Auto) 1.2, Baso % (Auto) 0.4, Neut # (Auto) 7.8, Lymph # (Auto) 1.6, [place] # (Auto) 0.9, Eos # (Auto) 0.1, Baso # (Auto) 0.0, Sodium 136, Potassium 4.7, Chloride 106, Carbon Dioxide 27, Anion Gap 7.7, BUN 21 H, Creatinine 0.90, Estimated Creat Clear 101, Estimated GFR 85, Est GFR ( Amer) 102, Glucose 202 H, Calcium 9.3 09/12/24 13:16: Activated Clotting Time 224 H* 09/12/24 13:58: Urine Color Yellow, Urine Appearance Clear, Urine pH 7.0, Ur Specific [address] <= 1.005, Urine Protein Negative, Urine Glucose (UA) Negative, Urine Ketones Negative, Urine Blood 1+ A, Urine Nitrate Negative, Urine Bilirubin Negative, Urine Urobilinogen 0.2, Ur Leukocyte Esterase Negative, Urine RBC 20-50, Urine WBC Occasional, Ur Squamous Epith Cells Occasional, Urine Bacteria Trace I & O for Last 24 hours: Intake & Output 09/09/24 09/10/24 09/11/24 09/12/24 23:59 23:59 23:59 23:59 Weight 96.615 kg Constitutional Constitutional: no acute distress *Routine HEENT Exam Head: Present normocephalic Eye: Present EOMI and PERRL ENT: Present mucous membranes moist *Routine Neck Exam Neck: Present supple; Absent lymphadenopathy *Routine Respiratory Exam Respiratory: Present CTA bilaterally *Routine Cardiovascular Exam Cardiovascular: Present RRR *Routine Abdominal Exam Abdominal: Present soft and normoactive bowel sounds; Absent tenderness *Routine Rectal Exam Rectal:: deferred *Routine Genitalia Exam Genitalia:: deferred *Routine Extremities Exam Extremities: Absent cyanosis, clubbing or edema *Routine Skin Exam Skin: Present warm; Absent rash *Routine Neurological Exam Neurological: Present alert and oriented X3 Assessment and Plan *Assessment and plan (1) PAD (peripheral artery disease): Status: Chronic Category: Medical Code(s): I73.9 - Peripheral vascular disease, unspecified Plan Mono Bobby is a 64-year-old male with a medical history of PAD who presented for an outpatient cath with successful PCI to bilateral lower extremities. Dr. Workman requested admission for monitoring in light of using large gauge Czech catheters to access bilateral femoral arteries and I accepted. On my evaluation of patient, he was lying in bed calmly without acute distress. Bilateral femoral without signs of bleeding. Creatinine 0.9, GFR 85. At baseline. Vital signs stable. #PAD #History of CAD ? S/p outpatient successful PCI. Will monitor overnight due to large gauge Czech catheters at bilateral femoral sites. Stable at this time. ? Continue aspirin, Xarelto 2.5 mg twice daily, statin. ? Continue metoprolol tartrate 100 mg twice daily. ? Continuous cardiac telemetry. ? Follow-up morning CBC, CMP. #Type 2 diabetes ? Hemoglobin A1c 8.1%. ? LDSSI, ACHS glucose checks. #History of Mobitz type I AV block ? AWAKE OVERNIGHT COUNSELOR placed in 09/14/2023. #Hypertension ? Resume home medications once reconciled. Full code DVT prophylaxis: Xarelto
[2024-09-12] MEDS: humaLOG 100 UNITS/ML 10ML VIAL (SSI) SUBCUT (22:00)
[2024-09-12] MEDS: RIVAROXABAN 2.5MG TABLET 2.5 MG PO (22:00)
[2024-09-12] MEDS: PATIENT'S OWN HOME MEDICATION (Metoprolol Tartrate 100 mg tablet) 100 EACH PO (22:00)
[2024-09-12] MEDS: PRAVASTATIN 40MG TAB 40 MG PO (22:00)
[2024-09-12] MEDS: INSULIN GLARGINE 100 UNITS/ML 3ML FLEXPEN 28 UNIT SUBCUT (22:36)
[2024-09-13] VITALS: BP 146/75; PULSE 84; RESP 18; TEMP 36.6; O2SAT 95
[2024-09-13 04:00] VITALS: BP 156/81; PULSE 65; PULSE 68; RESP 18; TEMP 36.6; O2SAT 95; BMI 30.4
--- NOTE | 2024-09-13 04:36 | PC.NURSE ---
Bilateral groin sites monitored for drainage-post cath. v/s, ox4. Pt was able to sit up at 2230. Blood glucose monitored. v/s, ox4,RA. No acute events to report. Plan of care ongoing.
--- NOTE | 2024-09-13 05:32 | PC.NURSE ---
trash was taken, ice was given, and bedside table was cleaned off. linens were empty to they were not taken.
[2024-09-13 06:13] LABS: Basophils % 0.3 % (0.1-2.0); Eosinophils % 0.1 % (0.1-12.0); Hematocrit 31.6 % (42.0-52.0); Hemoglobin 10.7 g/dL (14.1-18.0); Immature Granulocytes # 0.06 10^3uL; Immature Granulocytes % 0.4 %; Lymphocytes # 1.1 K/mm3 (0.7-4.5); Lymphocytes % 7.4 % (10-50); Mean Corpuscular HGB Conc 33.9 g/dL (31.8-35.4); Mean Corpuscular Hemoglobin 31.2 pg (27.0-31.2); Mean Corpuscular Volume 92.1 fl (80-94); Mean Platelet Volume 9.3 fl (7.4-10.4); Monocytes # 0.9 K/mm3 (0.1-1.0); Monocytes % 6.1 % (1.7-9.3); Neutrophils # 13.2 K/mm3 (1.8-7.8); Neutrophils % 85.7 % (37.0-80.0); Nucleated Red Blood Cells # 0 10^3/uL; Nucleated Red Blood Cells % 0 %; Platelet Count 286 K/mm3 (142-424); Red Blood Count 3.43 M/mm3 (4.60-6.20); Red Cell Distribution Width 12.8 % (11.5-17.5); Red Cell Distribution Width-SD 43.1 fL; White Blood Count 15.4 K/mm3 (4.8-10.8)
[2024-09-13 06:31] LABS: Albumin Level 3.6 g/dl (3.5-5.0); Chloride 101 mmol/L (98-107); Potassium 4.3 mmoL/L (3.5-5.1); Sodium 135 mmol/L (136-145)
[2024-09-13 06:33] LABS: Blood Urea Nitrogen 16 mg/dl (9-20); Creatinine Clearance Estimated 101 mL/min (50-200); Estimated Glomerular Filt Rate 113 ml/min (>60); GFR (African American) 137 ML/MIN (>60)
[2024-09-13 06:34] LABS: Alanine Aminotransferase 29 U/L (12-78); Albumin/Globulin Ratio 1.3 (1.1-1.8); Alkaline Phosphatase 107 U/L (38-126); Anion Gap 13.3 mEq/L (5-15); Aspartate Amino Transferase 24 U/L (17-59); Bilirubin,Total 0.5 mg/dl (0.2-1.3); Calcium 8.7 mg/dl (8.4-10.2); Carbon Dioxide 25 mmol/L (22.0-30.0); Globulin 2.8 g/dL (1.3-3.2); Glucose 199 mg/dl (74-100); Magnesium 1.9 mg/dl (1.6-2.3); Total Protein,Serum 6.4 g/dl (6.3-8.2)
[2024-09-13] MEDS: humaLOG 100 UNITS/ML 10ML VIAL (SSI) SUBCUT ×2 (06:51→10:05)
[2024-09-13 07:40] VITALS: BP 138/71; PULSE 82; RESP 16; TEMP 36.7; O2SAT 93
--- NOTE | 2024-09-13 07:44 | HMH.PHAINT1 ---
Pharmacy Intervention Comments: HOME MEDICATION LIST VERIFIED USING LIST FROM OUTPATIENT PHARMACY AND PT INTERVIEW
[2024-09-13 08:00] VITALS: PULSE 74
[2024-09-13] MEDS: LISINOPRIL 10MG TABLET 10 MG PO (08:36)
[2024-09-13] MEDS: ISOSORBIDE MONO 60MG TAB.ER.24H 60 MG PO (08:36)
[2024-09-13] MEDS: RIVAROXABAN 2.5MG TABLET 2.5 MG PO (08:36)
[2024-09-13] MEDS: ASPIRIN EC 81MG TABLET 81 MG PO (08:36)
[2024-09-13] MEDS: METOPROLOL TARTRATE 50MG TABLET 100 MG PO (08:36)
--- NOTE | 2024-09-13 09:07 | HMH.PTEV ---
Physical Therapy Evaluation Rehab PT IP Evaluation Start: 09/12/24 17:46 Freq: ONCE Status: Active Protocol: Document 09/13/24 09:04 MUNA (Rec: 09/13/24 09:06 MUNA [id number]) Subjective/History History History Per H&P: Mono Bobby is a 64-year-old male with a medical history of PAD who presented for an outpatient cath with successful PCI to bilateral lower extremities. Dr. Workman requested admission for monitoring in light of using large gauge [place] catheters to access bilateral femoral arteries and I accepted. On my evaluation of patient, he was lying in bed calmly without acute distress. Bilateral femoral without signs of bleeding. Creatinine 0.9, GFR 85. At baseline. Vital signs stable. Subjective Subjective Pt reports he lives alone with his two dogs and is IND with all mobility using a rollator. [facility] How much help from another person do you currently need... Turning from your None back to your side while in a flat bed without using bedrails? Moving from lying on None back to sitting on the side of a flat bed without using bedrails? Moving to and from a None bed to a chair ( including a wheelchair)? Standing up from a None chair using your arms? (e.g., wheelchair, bedside chair) Walking in hospital None room? Climbing 3-5 steps None with a railing? Mobility Score 24 Mobility Level [facility] Mobility Walk 250 feet or more Mobility Calculator Rehab PT IP Eval Objective Appearance Patient Behavior Appropriate,Cooperative Patient Orientation Person,Place Difficulty following none instructions Speech Pattern Clear Ambulation Patient Able to Yes Ambulate Ambulation Observation IP General Gait Wide Based Gait Pattern Observation Ambulation Distance 30 (feet) Ambulation Assistive Rolling Walker Device Ambulation Ability Independent,Supervision/Stand by Balance Ability to Arise Able, uses arms to help Sitting Balance Steady, safe Standing Balance Steady, wide stance Dynamic Sitting Good Balance Ability Dynamic Standing Good Balance Ability Transfers Bed Transfer Ability Independent Sit to Stand Bed Independent Transfer Ability Rehab PT IP prob,goals,plan Problems Date of Evaluation: 09/13/24 Rehab Potential Rehab Potential Innapropriate for Skilled Therapy Discharge Plan PT Discharge Plan Pt not appropriate for skilled acute care PT d/t being at baseline/IND with mobility. Eval Complexity Eval Charge Codes 48860 - Moderate Complexity PHYSICIAN CERTIFICATION: I certify the specified therapy services [facility] are required, authorized, and reviewed every 30 days.
--- NOTE | 2024-09-13 10:41 | EXP.DC.SUM ---
General Admission date:: 09/12/24 HPI HPI HPI: Mono Bobby is a 64-year-old male with a medical history of PAD who presented for an outpatient cath with successful PCI to bilateral lower extremities. Dr. Workman requested admission for monitoring in light of using large gauge [place] Citizen catheters to access bilateral femoral arteries and I accepted. On my evaluation of patient, he was lying in bed calmly without acute distress. Bilateral femoral without signs of bleeding. Creatinine 0.9, GFR 85. At baseline. Vital signs stable. Hospital Course Hospital Course Hospital Course: Mono Bobby is a 64-year-old male with a medical history of PAD who presented for an outpatient cath with successful PCI to bilateral lower extremities. Dr. Workman requested admission for monitoring in light of using large gauge [place] Citizen catheters to access bilateral femoral arteries and I accepted. On my evaluation of patient, he was lying in bed calmly without acute distress. Bilateral femoral without signs of bleeding. Creatinine 0.9, GFR 85. At baseline. Vital signs stable. #PAD #History of CAD ? S/p outpatient successful PCI, intravascular lithotripsy of left common and external iliac artery and 2 bare-metal stents. Monitored overnight due to large gauge [place] Citizen catheters at bilateral femoral sites without issues. Hemoglobin stable. ? Continue aspirin, Xarelto 2.5 mg twice daily, pravastatin 40 mg. ? Continue metoprolol tartrate 100 mg twice daily. ? Will follow-up with cardiology within 2 weeks. #Type 2 diabetes ? Hemoglobin A1c 8.1%. Continue home regimen. #History of Mobitz type I AV block ? BENDER HAND placed in 09/14/2023. #Hypertension ? Continue home regimen. Exam Data for Last 24 hours Vital signs and Labs for Last 24 Hours: Temp Pulse Resp BP Pulse Ox O2 Del Method O2 Flow Rate 98.1 F 74 16 138/71 93 L Room Air 3 09/13/24 07:40 09/13/24 08:00 09/13/24 07:40 09/13/24 07:40 09/13/24 07:40 09/13/24 10:37 09/12/24 17:15 Laboratory Results - last 24 hr 09/12/24 13:16: Activated Clotting Time 224 H* 09/12/24 13:58: Urine Color Yellow, Urine Appearance Clear, Urine pH 7.0, Ur Specific [place] <= 1.005, Urine Protein Negative, Urine Glucose (UA) Negative, Urine Ketones Negative, Urine Blood 1+ A, Urine Nitrate Negative, Urine Bilirubin Negative, Urine Urobilinogen 0.2, Ur Leukocyte Esterase Negative, Urine RBC 20-50, Urine WBC Occasional, Ur Squamous Epith Cells Occasional, Urine Bacteria Trace 09/13/24 05:56: WBC 15.4 H D, RBC 3.43 L, Hgb 10.7 L, Hct 31.6 L, MCV 92.1, MCH 31.2, MCHC 33.9, RDW 12.8, Plt Count 286, MPV 9.3, Neut % (Auto) 85.7 H, Lymph % (Auto) 7.4 L, [place] % (Auto) 6.1, Eos % (Auto) 0.1, Baso % (Auto) 0.3, Neut # (Auto) 13.2 H, Lymph # (Auto) 1.1, [place] # (Auto) 0.9, Eos # (Auto) 0.0, Baso # (Auto) 0.0, Sodium 135 L, Potassium 4.3, Chloride 101, Carbon Dioxide 25, Anion Gap 13.3, BUN 16, Creatinine 0.70 D, Estimated Creat Clear 101, Estimated GFR 113, Est GFR ( Amer) 137 D, Glucose 199 H, Calcium 8.7, Magnesium 1.9, Total Bilirubin 0.5, AST 24, ALT 29, Alkaline Phosphatase 107, Total Protein 6.4, Albumin 3.6, Globulin 2.8, Albumin/Globulin Ratio 1.3 I & O for Last 24 hours: Intake & Output 09/10/24 09/11/24 09/12/24 09/13/24 23:59 23:59 23:59 23:59 Intake Total 240 / 240 Output Total 1050 / 1050 550 / 550 Balance -810 / -810 -550 / -550 Weight 97.522 kg 96.661 kg Constitutional Constitutional: no acute distress and obese *Routine HEENT Exam Head: Present normocephalic Eye: Present EOMI and PERRL ENT: Present mucous membranes moist *Routine Neck Exam Neck: Present supple; Absent lymphadenopathy *Routine Respiratory Exam Respiratory: Present CTA bilaterally *Routine Cardiovascular Exam Cardiovascular: Present RRR *Routine Abdominal Exam Abdominal: Present soft and normoactive bowel sounds; Absent tenderness *Routine Extremities Exam Extremities: Absent cyanosis, clubbing or edema *Routine Skin Exam Skin: Present warm; Absent rash *Routine Neurological Exam Neurological: Present alert and oriented X3 Results Data Completed and Pending Labs on day of discharge: Labs from last 24 hours 09/13/24 09/12/24 09/12/24 05:56 13:58 13:16 WBC 15.4 H D RBC 3.43 L Hgb 10.7 L Hct 31.6 L MCV 92.1 MCH 31.2 MCHC 33.9 RDW 12.8 Plt Count 286 MPV 9.3 Neut % (Auto) 85.7 H Lymph % (Auto) 7.4 L [place] % (Auto) 6.1 Eos % (Auto) 0.1 Baso % (Auto) 0.3 Neut # (Auto) 13.2 H Lymph # (Auto) 1.1 [place] # (Auto) 0.9 Eos # (Auto) 0.0 Baso # (Auto) 0.0 Activated Clotting Time 224 H* Sodium 135 L Potassium 4.3 Chloride 101 Carbon Dioxide 25 Anion Gap 13.3 BUN 16 Creatinine 0.70 D Estimated Creat Clear 101 Estimated GFR 113 Est GFR ( Amer) 137 D Glucose 199 H Calcium 8.7 Magnesium 1.9 Total Bilirubin 0.5 AST 24 ALT 29 Alkaline Phosphatase 107 Total Protein 6.4 Albumin 3.6 Globulin 2.8 Albumin/Globulin Ratio 1.3 Urine Color Yellow Urine Appearance Clear Urine pH 7.0 Ur Specific [place] <= 1.005 Urine Protein Negative Urine Glucose (UA) Negative Urine Ketones Negative Urine Blood 1+ A Urine Nitrate Negative Urine Bilirubin Negative Urine Urobilinogen 0.2 Ur Leukocyte Esterase Negative Urine RBC 20-50 Urine WBC Occasional Ur Squamous Epith Cells Occasional Urine Bacteria Trace DS: Diagnosis Discharge Diagnosis (1) PAD (peripheral artery disease): Status: Chronic Code(s): I73.9 - Peripheral vascular disease, unspecified Meds Home Medications and Allergies Home Medications ?Medication ?Instructions ?Recorded ?Confirmed ?Type nitroglycerin 0.4 mg sublingual 0.4 mg sublingual Q5-15M PRN chest 06/30/23 09/12/24 Rx tablet pain #30 tabs blood-glucose,latrine cleaner,cont #1 ea 10/19/23 09/12/24 Rx (Dexcom G6 Wooden Tank Erector) insulin syringe-needle U-100 1 mL #100 ea 12/11/23 09/12/24 Rx 31 gauge x 5/16 (BD Insulin Syringe Ultra-Fine) isosorbide mononitrate 60 mg 60 mg PO DAILY #90 tabs 03/06/24 09/12/24 Rx tablet,extended release 24 hr rivaroxaban 2.5 mg tablet (Xarelto) 2.5 mg PO BID #180 tabs 03/06/24 09/12/24 Rx pen needle, diabetic 31 gauge x #1,200 ea 05/06/24 09/12/24 Rx 3/16 (BD Ultra-Fine Mini Pen Needle) blood-glucose sensor (Dexcom G6 #3 ea 06/28/24 09/12/24 Rx Sensor device) insulin lispro protamine-lispro 12 unit (0.12 mL) SQ BID #4.5 mL 08/20/24 09/12/24 Rx 100 unit/mL (75-25) subcutaneous pen (Humalog Mix 75-25 KwikPen) blood-glucose transmitter (Dexcom #3 ea 08/27/24 09/12/24 Rx G6 Transmitter device) amlodipine 10 mg tablet 10 mg PO DAILY 09/12/24 09/12/24 History aspirin 81 mg tablet,delayed 81 mg PO DAILY 09/12/24 09/12/24 History release insulin glargine 100 unit/mL (3 28 unit SQ HS 09/12/24 09/12/24 History mL) subcutaneous pen (Lantus Solostar U-100 Insulin) lisinopril 10 mg tablet 10 mg PO DAILY 09/12/24 09/12/24 History metoprolol tartrate 100 mg tablet 100 mg PO BID 09/12/24 09/12/24 History pravastatin 40 mg tablet 40 mg PO HS 09/12/24 09/12/24 History ropinirole 1 mg tablet 1 mg PO BID 09/12/24 09/13/24 History tamsulosin 0.4 mg capsule 0.4 mg PO HS 09/12/24 09/13/24 History New Prescriptions to Start Prescriptions: Allergies Allergy/AdvReac Type Severity Reaction Status Date / Time clopidogrel (From Plavix) Allergy Mild Dizziness Verified 09/03/24 11:32 Discharge Plan Disposition Patient Disposition: Home, Self-Care Condition: Fair Follow up Plan Follow up with: Stephanie Palomo APRN [Primary Care Provider, Family Practice] - 09/20/24 11:00 am Mendoza Workman MD [Staff Physician, Cardiology] - 09/25/24 11:15 am Prescriptions/Medication Reconciliation: Continued nitroglycerin 0.4 mg tablet, sublingual 0.4 mg sublingual Q5-15M PRN (Reason: chest pain) Qty: 30 1RF Rx Instructions: do not exceed 3 doses per episode (DME) Dexcom G6 Wooden Tank Erector Misc See Rx Instructions .Route Qty: 1 0RF Rx Instructions: As directed to test sugar change every 90 days. e11.9 (DME) insulin syringe-needle U-100 [BD Insulin Syringe Ultra-Fine] 1 mL 31 gauge x 5/16 syringe See Rx Instructions .ROUTE .COMPLEX Qty: 100 4RF Dose Instruction: USE DIRECTED with insulin injections Rx Instructions: USE DIRECTED with insulin injections Xarelto 2.5 mg tablet 2.5 mg PO BID Qty: 180 1RF isosorbide mononitrate 60 mg tablet extended release 24 hr 60 mg PO DAILY Qty: 90 1RF (DME) pen needle, diabetic [BD Ultra-Fine Mini Pen Needle] 31 gauge x 3/16 needle See Rx Instructions .ROUTE .COMPLEX Qty: 1200 3RF Dose Instruction: USE DIRECTED TO inject insulin THREE TIMES DAILY Rx Instructions: USE DIRECTED TO inject insulin THREE TIMES DAILY (DME) Dexcom G6 Sensor Device See Rx Instructions .ROUTE .COMPLEX Qty: 3 2RF Dose Instruction: USE DIRECTED TO TEST BLOOD GLUCOSE LEVEL CHANGE SENSOR EVERY 10 DAYS Rx Instructions: USE DIRECTED TO TEST BLOOD GLUCOSE LEVEL CHANGE SENSOR EVERY 10 DAYS insulin lispro protamin-lispro [Humalog Mix 75-25 KwikPen] 100 unit/mL (75-25) insulin pen 12 unit SQ BID Qty: 4.5 3RF (DME) Dexcom G6 Transmitter Device See Rx Instructions .ROUTE .COMPLEX Qty: 3 2RF Dose Instruction: USE DIRECTED TO TEST BLOOD GLUCOSE LEVEL (CHANGE TRANSMITTER EVERY 90 DAYS) Rx Instructions: USE DIRECTED TO TEST BLOOD GLUCOSE LEVEL (CHANGE TRANSMITTER EVERY 90 DAYS) ropinirole 1 mg tablet 1 mg PO BID pravastatin 40 mg tablet 40 mg PO HS metoprolol tartrate 100 mg tablet 100 mg PO BID aspirin 81 mg tablet,delayed release (DR/EC) 81 mg PO DAILY tamsulosin 0.4 mg capsule 0.4 mg PO HS amlodipine 10 mg tablet 10 mg PO DAILY lisinopril 10 mg tablet 10 mg PO DAILY insulin glargine [Lantus Solostar U-100 Insulin] 100 unit/mL (3 mL) insulin pen 28 unit SQ HS Other Ambulatory Orders: Basic Metabolic Panel (Routine) Timeframe: 20240925 Facility: [facility] - Location: Laboratory Ordered By: Mendoza Workman Complete Blood Count Auto Diff (Timed) Timeframe: [id number] Facility: [facility] - Location: Laboratory Ordered By: Mendoza Workman Problem Reconciliation Problems Reviewed?: Yes Patient Discharge Instructions Patient Instructions: DI for Peripheral Vascular (Arterial) Disease, DI for Surgical Site Infection, DI for Moderate Sedation, Stop Light Heart Failure Print Language: Yakut Providers Primary Care Provider: Stephanie Palomo Admit Provider: Reid Landeros Attending Provider: Reid Landeros
--- NOTE | 2024-09-16 10:29 | SW/DCPLANNER ---
Spoke with patient on the phone. Patient stated that he is doing good just a little sore and bruised. Patient stated that he is aware of his upcoming appointments. Patient stated that he was not prescribed any new medicine. Patient stated that he has no concerns or questions. Lucinda Christiansen
== END 2024-09-13 11:35 | disposition home or self-care (01) ==
LOC: 2ND 17:12
PROVIDERS: Internal Medicine; Admitting Provider Student in an Organized Health Care Education/Training Program; PCP Family Medicine; Visit Provider Student in an Organized Health Care Education/Training Program
DX: I70.219 Atherosclerosis of native arteries of extremities with intermittent claudication, unspecified extremity (principal); E11.51 Type 2 diabetes mellitus with diabetic peripheral angiopathy without gangrene; I25.118 Atherosclerotic heart disease of native coronary artery with other forms of angina pectoris; I50.20 Unspecified systolic (congestive) heart failure; I11.0 Hypertensive heart disease with heart failure; E66.9 Obesity, unspecified; I44.0 Atrioventricular block, first degree; E78.2 Mixed hyperlipidemia; I48.91 Unspecified atrial fibrillation; I25.2 Old myocardial infarction; F17.200 Nicotine dependence, unspecified, uncomplicated; Z88.8 Allergy status to other drugs, medicaments and biological substances; Z68.30 Body mass index [BMI] 30.0-30.9, adult; Z95.1 Presence of aortocoronary bypass graft; Z95.5 Presence of coronary angioplasty implant and graft; Z79.4 Long term (current) use of insulin; Z79.01 Long term (current) use of anticoagulants; Z79.82 Long term (current) use of aspirin; Z79.899 Other long term (current) drug therapy; Z79.02 Long term (current) use of antithrombotics/antiplatelets; Z82.49 Family history of ischemic heart disease and other diseases of the circulatory system
CPT/HCPCS: 36415; 51702; 80048; 80053; 81001; 83735; 85025; 85347; 96361; 96374; 96375; 96376; 97162; 99152; 99153; C1725; C1769; C1876; C1894; C9765; G0378; J1200; J1644; J2270; J2704; J3010; J7040; Q9966

== ENCOUNTER 2024-09-20 12:22 | Outpatient (CLI) | payer MEDICARE, OTHER, SELFPAY ==
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
[2024-09-20 12:47] LABS: Basophils % 0.3 % (0.1-2.0); Eosinophils # 0.2 Kmm3 (0.0-0.4); Eosinophils % 1.9 % (0.1-12.0); Hematocrit 25.1 % (42.0-52.0); Hemoglobin 8.3 g/dL (14.1-18.0); Immature Granulocytes % 0.8 %; Lymphocytes # 1.8 K/mm3 (0.7-4.5); Lymphocytes % 14.3 % (10-50); Mean Corpuscular HGB Conc 33.1 g/dL (31.8-35.4); Mean Corpuscular Hemoglobin 30.9 pg (27.0-31.2); Mean Corpuscular Volume 93.3 fl (80-94); Monocytes # 1.2 K/mm3 (0.1-1.0); Monocytes % 9.6 % (1.7-9.3); Neutrophils % 73.1 % (37.0-80.0); Nucleated Red Blood Cells # 0 10^3/uL; Nucleated Red Blood Cells % 0 %; Platelet Count 401 K/mm3 (142-424); Red Blood Count 2.69 M/mm3 (4.60-6.20); Red Cell Distribution Width 13.7 % (11.5-17.5); Red Cell Distribution Width-SD 46.3 fL; White Blood Count 12.4 K/mm3 (4.8-10.8)
[2024-09-20 13:21] LABS: Alanine Aminotransferase 17 U/L (12-78); Albumin Level 3.5 g/dl (3.5-5.0); Albumin/Globulin Ratio 1.3 (1.1-1.8); Alkaline Phosphatase 103 U/L (38-126); Anion Gap 12.5 mEq/L (5-15); Aspartate Amino Transferase 16 U/L (17-59); Bilirubin,Total 0.8 mg/dl (0.2-1.3); Blood Urea Nitrogen 35 mg/dl (9-20); Calcium 10.1 mg/dl (8.4-10.2); Carbon Dioxide 24 mmol/L (22.0-30.0); Chloride 100 mmol/L (98-107); Chol/HDL Ratio 3.9 (1-3.5); Cholesterol 131 mg/dl (140-200); Estimated Glomerular Filt Rate 75 ml/min (>60); GFR (African American) 91 ML/MIN (>60); Globulin 2.6 g/dL (1.3-3.2); Glucose 166 mg/dl (74-100); HDL Cholesterol 34 mg/dl (40-60); Potassium 5.5 mmoL/L (3.5-5.1); Sodium 131 mmol/L (136-145); Total Protein,Serum 6.1 g/dl (6.3-8.2); Triglycerides 137 mg/dl (30-150); VLDL Cholesterol 27 mg/dL (0-40)
[2024-09-20 13:28] LABS: Hemoglobin A1C 10.5 % (4.0-6.0)
[2024-09-20 13:32] LABS: Direct LDL Cholesterol 69.96 mg/dL (100-129)
[2024-09-20 13:35] LABS: Creatinine,Urine Random 77 mg/dL (Not Estab.)
[2024-09-20 13:37] LABS: 25-OH Vitamin D, Total 29.9 ng/mL (30-100)
[2024-09-20 13:39] LABS: Microalbumin/Creatinine Ratio 19.4
[2024-09-20 13:51] LABS: Prostate Specific Ag Screen 0.4 ng/ml (0.0-4.0); Thyroid Stimulating Hormone 4.09 uIU/mL (0.465-4.68)
== END 2024-09-20 23:59 | disposition home or self-care (01) ==
PROVIDERS: PCP Family Medicine; Visit Provider Family Medicine
DX: E78.5 Hyperlipidemia, unspecified (principal); E11.9 Type 2 diabetes mellitus without complications
CPT/HCPCS: 36415; 80053; 80061; 82043; 82306; 82570; 83036; 84443; 85025; 93926; G0103

== ENCOUNTER 2024-09-20 13:21 | Emergency (ER) | payer MEDICARE, OTHER, SELFPAY ==
[2024-09-20] VITALS (13 sets, daily range): BP systolic 110–177; BP diastolic 50–75; PULSE 65–78; RESP 19–20; TEMP 36.6–37; O2SAT 93–100; BMI 34.0
--- OUTSIDE RECORDS SUMMARY | 2024-09-20 13:31 | XMS_ITS | Clinical Summary ---
Author Organization [facility] Address 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 Source: [place] [employer]. Standards of medical care in [...] Recently Relevant to Health Maintenance Insurance AETNA [facility] MEDICAID Advance Directives * Full Code (Latest Code Status on File) Date Activated Date Inactivated Comments 10/18/2021 8:18 PM 10/20/2021 2:26 PM Question Answer Comments Patient has decision-making capacity? Yes Care Teams E Commerce Marketing Analyst Relationship Specialty Start Date End Date Asad Victor MD [address] [facility] [place] [address] PCP - General 10/07/22
--- NOTE | 2024-09-20 13:43 | HMH.EDGENADL ---
Discharge Plan Disposition Patient Disposition: Xfer Other Condition: Fair Prescriptions Prescriptions: No Action insulin lispro protamin-lispro [Humalog Mix 75-25 KwikPen] 100 unit/mL (75-25) insulin pen 15 unit SQ BID nitroglycerin 0.4 mg tablet, sublingual 0.4 mg sublingual Q5-15M PRN (Reason: chest pain) Qty: 30 1RF Rx Instructions: do not exceed 3 doses per episode (DME) Dexcom G6 Diamond Finishing Supervisor Misc See Rx Instructions .Route Qty: 1 0RF Rx Instructions: As directed to test sugar change every 90 days. e11.9 (DME) insulin syringe-needle U-100 [BD Insulin Syringe Ultra-Fine] 1 mL 31 gauge x 5/16 syringe See Rx Instructions .ROUTE .COMPLEX Qty: 100 4RF Dose Instruction: USE DIRECTED with insulin injections Rx Instructions: USE DIRECTED with insulin injections Xarelto 2.5 mg tablet 2.5 mg PO BID Qty: 180 1RF isosorbide mononitrate 60 mg tablet extended release 24 hr 60 mg PO DAILY Qty: 90 1RF (DME) pen needle, diabetic [BD Ultra-Fine Mini Pen Needle] 31 gauge x 3/16 needle See Rx Instructions .ROUTE .COMPLEX Qty: 1200 3RF Dose Instruction: USE DIRECTED TO inject insulin THREE TIMES DAILY Rx Instructions: USE DIRECTED TO inject insulin THREE TIMES DAILY (DME) Dexcom G6 Sensor Device See Rx Instructions .ROUTE .COMPLEX Qty: 3 2RF Dose Instruction: USE DIRECTED TO TEST BLOOD GLUCOSE LEVEL CHANGE SENSOR EVERY 10 DAYS Rx Instructions: USE DIRECTED TO TEST BLOOD GLUCOSE LEVEL CHANGE SENSOR EVERY 10 DAYS (DME) Dexcom G6 Transmitter Device See Rx Instructions .ROUTE .COMPLEX Qty: 3 2RF Dose Instruction: USE DIRECTED TO TEST BLOOD GLUCOSE LEVEL (CHANGE TRANSMITTER EVERY 90 DAYS) Rx Instructions: USE DIRECTED TO TEST BLOOD GLUCOSE LEVEL (CHANGE TRANSMITTER EVERY 90 DAYS) ropinirole 1 mg tablet 1 mg PO BID pravastatin 40 mg tablet 40 mg PO HS metoprolol tartrate 100 mg tablet 100 mg PO BID aspirin 81 mg tablet,delayed release (DR/EC) 81 mg PO DAILY tamsulosin 0.4 mg capsule 0.4 mg PO HS amlodipine 10 mg tablet 10 mg PO DAILY lisinopril 10 mg tablet 10 mg PO DAILY insulin glargine [Lantus Solostar U-100 Insulin] 100 unit/mL (3 mL) insulin pen 28 unit SQ HS Referrals Follow up/Referrals: Stephanie Palomo APRN [Primary Care Provider, Family Practice] - See instructions Clinical Impressions Clinical Impression: Pseudoaneurysm of femoral artery, PAD (peripheral artery disease) Stand Alone Forms Stand Alone Forms: Transfer Record - ED Print Language Print Language: Korean Discharge ED Provider: Iraj Crandall General Adult HPI <GLENDA Aguirre - Last Filed: 09/20/24 19:19> General Chief complaint: Recheck/Abnormal Lab/Rx Stated complaint: abnormal labs Time Seen by Provider: 09/20/24 13:33 Mode of Arrival: Ambulatory Source of Information: Patient Limitations: No Limitations History of Present Illness HPI narrative: 64-year-old male presents to the emergency department at the request of PCP, for concerns of decreased hemoglobin hematocrit, at outpatient lab draw, patient had recent vascular procedure/femoral angiogram for peripheral artery disease, left femoral access, 09/12/2024, which yielded PAD, with intravascular lithotripsy of the left common and external iliac artery, with 2 contiguous balloon mounted bare-metal stents, patient is on anticoagulation therapy with Xarelto at 2.5 daily, as well as antiplatelet therapy with 81 mg p.o. aspirin. Patient denies any fever chills chest pain shortness of breath abdominal pain, does admit to generalized weakness, and pain in his groin/leg after recent angiogram 1 week ago, denies any urinary symptomatology, nausea vomiting constipation diarrhea, does endorse bruising and swelling to the left leg/left groin area. Patient is a former smoker, denies any alcohol or drug use, initial triage vitals are unremarkable, past medical history is consistent with HFrEF, obesity, PAD with peripheral stent placements, history of CABG, coronary artery disease status post multiple stent placements, RLS, T2DM, hyperlipidemia, hypertension, carotid artery stenosis. Onset (ago): day(s) Related Data Home Medications ?Medication ?Instructions ?Recorded ?Confirmed amlodipine 10 mg tablet 10 mg PO DAILY 09/12/24 09/20/24 aspirin 81 mg tablet,delayed 81 mg PO DAILY 09/12/24 09/20/24 release insulin glargine 100 unit/mL (3 28 unit SQ HS 09/12/24 09/20/24 mL) subcutaneous pen (Lantus Solostar U-100 Insulin) lisinopril 10 mg tablet 10 mg PO DAILY 09/12/24 09/20/24 metoprolol tartrate 100 mg tablet 100 mg PO BID 09/12/24 09/20/24 pravastatin 40 mg tablet 40 mg PO HS 09/12/24 09/20/24 ropinirole 1 mg tablet 1 mg PO BID 09/12/24 09/20/24 tamsulosin 0.4 mg capsule 0.4 mg PO HS 09/12/24 09/20/24 insulin lispro protamine-lispro 15 unit SQ BID 09/20/24 100 unit/mL (75-25) subcutaneous pen (Humalog Mix 75-25 KwikPen) Previous Rx's ?Medication ?Instructions ?Recorded nitroglycerin 0.4 mg sublingual 0.4 mg sublingual Q5-15M PRN chest 06/30/23 tablet pain #30 tabs blood-glucose,graphics intern,cont #1 ea 10/19/23 (Dexcom G6 Diamond Finishing Supervisor) insulin syringe-needle U-100 1 mL #100 ea 12/11/23 31 gauge x 5/16 (BD Insulin Syringe Ultra-Fine) isosorbide mononitrate 60 mg 60 mg PO DAILY #90 tabs 03/06/24 tablet,extended release 24 hr rivaroxaban 2.5 mg tablet (Xarelto) 2.5 mg PO BID #180 tabs 03/06/24 pen needle, diabetic 31 gauge x #1,200 ea 05/06/24 3/16 (BD Ultra-Fine Mini Pen Needle) blood-glucose sensor (Dexcom G6 #3 ea 06/28/24 Sensor device) blood-glucose transmitter (Dexcom #3 ea 08/27/24 G6 Transmitter device) Allergies Allergy/AdvReac Type Severity Reaction Status Date / Time clopidogrel (From Plavix) Allergy Mild Dizziness Verified 09/20/24 11:32 <Joel Chavez MD - Last Filed: 09/20/24 15:51> History of Present Illness HPI narrative: 64-year-old male presents to the emergency department at the request of PCP, for concerns of decreased hemoglobin hematocrit, at outpatient lab draw, patient had recent vascular procedure/femoral angiogram for peripheral artery disease, left femoral access, 09/12/2024, which yielded PAD, with intravascular lithotripsy of the left common and external iliac artery, with 2 contiguous balloon mounted bare-metal stents, patient is on anticoagulation therapy with Xarelto at 2.5 daily, as well as antiplatelet therapy with 81 mg p.o. aspirin. Patient denies any fever chills chest pain shortness of breath abdominal pain, does admit to generalized weakness, and pain in his groin/leg after recent angiogram 1 week ago, denies any urinary symptomatology, nausea vomiting constipation diarrhea, does endorse bruising and swelling to the left leg/left groin area. Patient is a former smoker, denies any alcohol or drug use, initial triage vitals are unremarkable, past medical history is consistent with HFrEF, obesity, PAD with peripheral stent placements, history of CABG, coronary artery disease status post multiple stent placements, RLS, T2DM, hyperlipidemia, hypertension, carotid artery stenosis. Joel Chavez: I was consulted by the YOBANY, and we discussed the complexity of the problems being addressed. I approved the treatment and management plan for this patient's care in the emergency department, thus performing a substantive portion of the medical decision making. I agree with initial evaluation, CT angiogram continued evaluation pending at time of transfer of care to the oncoming physician, Dr. Olivarez. [facility] <GLENDA Aguirre - Last Filed: 09/20/24 19:19> [facility] Disclaimer: The information contained in this section may have been updated after the patient was seen, as this information can be updated by other users. Medical History Numbness and tingling in left arm Atypical angina Right arm pain Dizziness Abnormal cardiovascular stress test Abnormal EKG Swelling of left half of scrotum Status post orchiectomy at time of left inguinal hernia repair in March 2020 Cholelithiasis Sinus pause Third degree AV block Angina at rest Elevated troponin NSTEMI (non-ST elevated myocardial infarction) Right bundle branch block CAD (coronary artery disease) Ex-smoker Dyspnea Surgical History Status post left inguinal hernia repair Concomitant orchiectomy with postoperative hematoma/seroma (slowly improving) Hx of CABG Social History Smoking Status: Current every day smoker tobacco type: cigarettes packs per day: 1 smoking status stop date: 8 second hand exposure: Yes alcohol intake: never substance use type: marijuana current occupational status: retired Travel in the last 8 weeks?: None household members: none housing: house current occupational exposures/hazards: No caffeine: Yes Have you lived/traveled outside [place] in past 30 days?: No Contact w/someone who lives/traveled outside US past 30 days?: No Exposure to someone with infectious disease in past 14 days?: No Do you have a fever (greater than 100.4 F or 38 C)?: No Have you tested positive for COVID-19?: No Exposed to someone with COVID-19 in past 14 days?: No Do you have a sore throat?: No Do you have a cough?: No Do you have any weakness?: No Do you have any diarrhea?: No Are you experiencing any unusual bleeding?: No Do you have any muscle aches/pain?: No Do you have any abdominal pain?: No Are you experiencing loss of taste or smell?: No Other Medical History Have you received the Flu Vaccine for this season: No Have you received the Pneumonia Vaccine: No <GLENDA Aguirre - Last Filed: 09/20/24 19:19> ROS Obtained: Yes All systems reviewed & no additional complaints except as documented Physical Exam <GLENDA Aguirre - Last Filed: 09/20/24 19:19> General General appearance: alert and in no apparent distress Head Head exam: atraumatic and normocephalic Eye Eye exam: Present PERRL and EOMI ENT ENT exam: Present mucous membranes moist Neck Neck exam: Present normal inspection Chest Chest inspection: Present normal inspection and symmetric chest wall rise Respiratory Respiratory exam: Present normal lung sounds bilaterally; Absent respiratory distress, wheezes or stridor Cardiovascular Cardiovascular exam: Present regular rate and normal rhythm Abdominal Exam Abdominal exam: Present soft; Absent tenderness, guarding, rebound or rigidity Comment: No Thomas Albrecht sign, no [place] sign, no abdominal ecchymoses exam: Present other (Ecchymosis noted to the left groin area, from left femoral approach, with extension down into the thigh, with hematoma present down around to the calf, with some mild pain palpation) Extremities Exam Extremities exam: Present normal inspection Back Exam Comment: Neurovascular intact Neurological Exam Neurological exam: Present alert and oriented X3 Psychiatric Psychiatric exam: Present normal affect Skin Skin exam: Present warm and dry Medical Decision Making <GLENDA Aguirre - Last Filed: 09/20/24 19:19> Medical Records Medical records reviewed: Yes I reviewed the patient's medical records. Screening: Per USPSTF and CDC recommendations, given the prevalence of disease in our region, it is our hospital?s policy to screen for HIV and viral Hepatitis for all patients aged 18 and over and those with ongoing risk factors. Quan Inquiry Pt receiving controlled substance: No Quan was queried for this patient: No Vital Signs: 09/20/24 13:31 09/20/24 13:31 09/20/24 13:38 Temperature 98.6 F 98.6 F Temperature Source Oral Oral Pulse Rate 75 68 Pulse Rate [Right] 75 Respiratory Rate 19 19 Blood Pressure 132/56 L 143/70 H Blood Pressure [Right Arm] 132/56 L Blood Pressure Mean 95 Blood Pressure Mean [Right Arm] 81 Blood Pressure Source Automatic Cuff Blood Pressure Source [Right Arm] Automatic Cuff Blood Pressure Position Supine Blood Pressure Position [Right Arm] Supine 02 Sat by Pulse Oximetry 97 97 97 Oxygen Delivery Method Room Air Room Air 09/20/24 14:01 09/20/24 14:47 09/20/24 15:31 Temperature Temperature Source Pulse Rate 65 71 78 Pulse Rate [Right] Respiratory Rate Blood Pressure 160/71 H 120/55 L 177/75 H Blood Pressure [Right Arm] Blood Pressure Mean 99 Blood Pressure Mean [Right Arm] Blood Pressure Source Blood Pressure Source [Right Arm] Blood Pressure Position Blood Pressure Position [Right Arm] 02 Sat by Pulse Oximetry 93 L 100 96 Oxygen Delivery Method Room Air 09/20/24 16:01 09/20/24 16:31 09/20/24 17:00 Temperature Temperature Source Pulse Rate 76 77 74 Pulse Rate [Right] Respiratory Rate Blood Pressure 132/50 L 114/54 L 127/57 L Blood Pressure [Right Arm] Blood Pressure Mean Blood Pressure Mean [Right Arm] Blood Pressure Source Blood Pressure Source [Right Arm] Blood Pressure Position Blood Pressure Position [Right Arm] 02 Sat by Pulse Oximetry 97 97 98 Oxygen Delivery Method Room Air 09/20/24 18:01 09/20/24 18:45 Temperature Temperature Source Pulse Rate 75 71 Pulse Rate [Right] Respiratory Rate Blood Pressure 148/70 H 127/52 L Blood Pressure [Right Arm] Blood Pressure Mean Blood Pressure Mean [Right Arm] Blood Pressure Source Blood Pressure Source [Right Arm] Blood Pressure Position Blood Pressure Position [Right Arm] 02 Sat by Pulse Oximetry 97 99 Oxygen Delivery Method Room Air Room Air Lab Data Lab results reviewed: Yes I reviewed the patient's lab results. Lab Results 09/20/24 13:37: WBC 12.3 H, RBC 2.70 L, Hgb 8.4 L, Hct 24.9 L, MCV 92.2, MCH 31.1, MCHC 33.7, RDW 13.6, Plt Count 380, MPV 9.0, Neut % (Auto) 73.9, Lymph % (Auto) 13.6, [place] % (Auto) 9.3, Eos % (Auto) 1.9, Baso % (Auto) 0.3, Neut # (Auto) 9.1 H, Lymph # (Auto) 1.7, [place] # (Auto) 1.1 H, Eos # (Auto) 0.2, Baso # (Auto) 0.0, PT 10.9, INR 0.98, APTT 26.7, Sodium 132 L, Potassium 5.1, Chloride 99, Carbon Dioxide 24, Anion Gap 14.1, BUN 33 H, Creatinine 1.00, Estimated Creat Clear 103, Estimated GFR 75, Est GFR ( Amer) 91, Glucose 135 H, Calcium 9.2, Magnesium 2.0, Total Bilirubin 0.7, AST 18, ALT 18, Alkaline Phosphatase 115, Total Protein 6.7, Albumin 3.8, Globulin 2.9, Albumin/Globulin Ratio 1.3 09/20/24 17:35: Blood Type A Negative, Antibody Screen Negative 09/20/24 17:50: Hgb 8.6 L, Hct 25.6 L 09/20/24 17:50 09/20/24 13:37 Orders (Tests/Meds): ED MEDICATIONS Generic Name Dose Route Start Last Admin Trade Name Freq PRN Reason Stop Dose Admin Sodium Chloride 10 ml 09/20/24 15:47 09/20/24 15:49 Sodium Chloride 0.9% 10ml Syr (Rad Only) IV 10/20/24 15:46 10 ml NEEDED PRN Administration Maintain IV Site Discontinued Medications Generic Name Dose Route Start Last Admin Trade Name Freq PRN Reason Stop Dose Admin Famotidine 20 mg 09/20/24 16:19 09/20/24 16:25 Famotidine 20mg Tablet PO 09/20/24 16:20 20 mg ONCE ONE Administration Iopamidol 150 ml 09/20/24 15:47 09/20/24 15:49 Iopamidol-370 (76%);100ml Bottle IV 09/20/24 15:48 150 ml ONCE ONE Administration Morphine Sulfate 4 mg 09/20/24 16:19 09/20/24 16:25 Morphine 4mg/Ml Syringe IV 09/20/24 16:20 4 mg ONCE ONE Administration Ondansetron HCl 4 mg 09/20/24 16:19 09/20/24 16:25 Ondansetron 4mg/2ml Vial IV 09/20/24 16:20 4 mg ONCE ONE Administration Ropinirole HCl 1 mg 09/20/24 18:17 09/20/24 18:27 Ropinirole 1mg Tablet PO 09/20/24 18:18 1 mg ONCE ONE Administration Sodium Chloride 100 ml 09/20/24 15:47 09/20/24 15:49 0.9 % Sodium Chloride 50 Ml Vial IV 09/20/24 15:48 100 ml ONCE ONE Administration ORDERS Category Date Time Status Type and Screen Stat BBK 09/20/24 17:[address] abdomen pelvis wo con Stat Cat Scan 09/20/24 13:[address] angio abdomen/femoral Stat Cat Scan 09/20/24 15:27 Completed Complete Blood Count Auto Diff Stat Lab 09/20/24 13:37 Completed Comprehensive Metabolic Panel Stat Lab 09/20/24 13:37 Completed Hemoglobin and Hematocrit Stat Lab 09/20/24 17:50 Completed Magnesium Stat Lab 09/20/24 13:37 Completed PT INR [Prothrombin Time INR] Stat Lab 09/20/24 13:37 Completed PTT [Activated Partial Thrombo Time] Stat Lab 09/20/24 13:37 Completed US scrotum [US Testicular] Stat Ultrasound 09/20/24 13:46 Completed Medical Decision Narrative: 64-year-old male presents to the emergency department for hematoma rule out, via PCP, differential diagnosis include but not limited to, retroperitoneal hematoma, pseudoaneurysm, postoperative hematoma, acute blood loss anemia among others. I discussed patient case with attending physician Dr. Chavez as well as attending physician Will obtain basic laboratory studies, groin/scrotal ultrasound, as well as CT abdomen pelvis without contrast to rule out retroperitoneal hematoma, EKG and coags. CBC is notable for mild leukocytosis of 12.3, erythrocyttopenia 2.7, hemoglobin is 8.4 hematocrit is 24.9, this is mildly decreased from previous lab draw which was 8.3 this a.m., and on the was 10.7, on the day of the procedure on the patient's hemoglobin was 11.6. Coags within normal limits CMP is notable for mild BUN elevation at 33, mild hyponatremia 132 otherwise unremarkable I reviewed the patient's testicular/scrotal ultrasound along with corresponding radiologic report, normal right testes/scrotum, 1.9 cm hypoechoic structure left scrotum could represent an atrophic testes mass or chronic hematoma. Will obtain CTA abdomen pelvis with femoral runoff, to rule out pseudoaneurysm formation as the patient has dropped his hemoglobin around 4 points in less than 10 days. I reviewed the patient's CT abdomen pelvis without contrast along the corresponding radiologic report, no retroperitoneal or inguinal hemorrhages endophyte, there is a moderate infiltrative type hemorrhage in the left inguinal area of the upper thigh consider Doppler examination of potential underlying pseudoaneurysm if clinically indicated. I was notified by nursing staff at approximately 4 PM, that the patient is becoming quite agitated and using curse words, and is wanting to leave AGAINST MEDICAL ADVICE. I proceeded to go to the bedside and have a long discussion with the patient at approximately 4:05 PM, patient is quite aggravated about his length of stay thus far, however realizes the gravity of the situation, and is willing to wait on his CTA results, however he would like some pain medication , as well as some heartburn medication . Will give the patient 20 mg p.o. Pepcid, 4 mg IV morphine and 4 mg of Zofran for pain. 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 I attempted to page the on-call test pilot at approximately 4:36 PM, he will call back. Will also type and screen the patient. I discussed this patient's case with Dr. Workman of the test pilot and the physician who performed the procedure 1 week ago, he recommends [facility] or higher level of care with vascular surgery. Will also repeat hemoglobin hematocrit. Repeat hemoglobin is 8.6.\ Was notified by nursing staff at approximately 6:15 PM the patient is requesting his restless leg medication , patient takes ropinirole 1 mg p.o. twice daily, will give 1 mg ropinirole Blood type is A-. I discussed this patient's case with Dr.Aamanda Nowak the on-call vascular surgeon at approximately 6:45 PM she is agreement with current treatment plan/transfer plan, for complex pseudoaneurysm, most likely requiring surgical intervention, patient will be transferred [facility] ED to ED transfer. <Joel Chavez MD - Last Filed: 09/20/24 15:51> Vital Signs: 09/20/24 13:31 09/20/24 13:31 09/20/24 13:38 Temperature 98.6 F 98.6 F Temperature Source Oral Oral Pulse Rate 75 68 Pulse Rate [Right] 75 Respiratory Rate 19 19 Blood Pressure 132/56 L 143/70 H Blood Pressure [Right Arm] 132/56 L Blood Pressure Mean 95 Blood Pressure Mean [Right Arm] 81 Blood Pressure Source Automatic Cuff Blood Pressure Source [Right Arm] Automatic Cuff Blood Pressure Position Supine Blood Pressure Position [Right Arm] Supine 02 Sat by Pulse Oximetry 97 97 97 Oxygen Delivery Method Room Air Room Air 09/20/24 14:01 09/20/24 14:47 09/20/24 15:31 Temperature Temperature Source Pulse Rate 65 71 78 Pulse Rate [Right] Respiratory Rate Blood Pressure 160/71 H 120/55 L 177/75 H Blood Pressure [Right Arm] Blood Pressure Mean 99 Blood Pressure Mean [Right Arm] Blood Pressure Source Blood Pressure Source [Right Arm] Blood Pressure Position Blood Pressure Position [Right Arm] 02 Sat by Pulse Oximetry 93 L 100 96 Oxygen Delivery Method Room Air 09/20/24 16:01 09/20/24 16:31 09/20/24 17:00 Temperature Temperature Source Pulse Rate 76 77 74 Pulse Rate [Right] Respiratory Rate Blood Pressure 132/50 L 114/54 L 127/57 L Blood Pressure [Right Arm] Blood Pressure Mean Blood Pressure Mean [Right Arm] Blood Pressure Source Blood Pressure Source [Right Arm] Blood Pressure Position Blood Pressure Position [Right Arm] 02 Sat by Pulse Oximetry 97 97 98 Oxygen Delivery Method Room Air 09/20/24 18:01 09/20/24 18:45 Temperature Temperature Source Pulse Rate 75 71 Pulse Rate [Right] Respiratory Rate Blood Pressure 148/70 H 127/52 L Blood Pressure [Right Arm] Blood Pressure Mean Blood Pressure Mean [Right Arm] Blood Pressure Source Blood Pressure Source [Right Arm] Blood Pressure Position Blood Pressure Position [Right Arm] 02 Sat by Pulse Oximetry 97 99 Oxygen Delivery Method Room Air Room Air Lab Data Lab Results 09/20/24 13:37: WBC 12.3 H, RBC 2.70 L, Hgb 8.4 L, Hct 24.9 L, MCV 92.2, MCH 31.1, MCHC 33.7, RDW 13.6, Plt Count 380, MPV 9.0, Neut % (Auto) 73.9, Lymph % (Auto) 13.6, [place] % (Auto) 9.3, Eos % (Auto) 1.9, Baso % (Auto) 0.3, Neut # (Auto) 9.1 H, Lymph # (Auto) 1.7, [place] # (Auto) 1.1 H, Eos # (Auto) 0.2, Baso # (Auto) 0.0, PT 10.9, INR 0.98, APTT 26.7, Sodium 132 L, Potassium 5.1, Chloride 99, Carbon Dioxide 24, Anion Gap 14.1, BUN 33 H, Creatinine 1.00, Estimated Creat Clear 103, Estimated GFR 75, Est GFR ( Amer) 91, Glucose 135 H, Calcium 9.2, Magnesium 2.0, Total Bilirubin 0.7, AST 18, ALT 18, Alkaline Phosphatase 115, Total Protein 6.7, Albumin 3.8, Globulin 2.9, Albumin/Globulin Ratio 1.3 09/20/24 17:35: Blood Type A Negative, Antibody Screen Negative 09/20/24 17:50: Hgb 8.6 L, Hct 25.6 L Orders (Tests/Meds): ED MEDICATIONS Generic Name Dose Route Start Last Admin Trade Name Freq PRN Reason Stop Dose Admin Sodium Chloride 10 ml 09/20/24 15:47 09/20/24 15:49 Sodium Chloride 0.9% 10ml Syr (Rad Only) IV 10/20/24 15:46 10 ml NEEDED PRN Administration Maintain IV Site Discontinued Medications Generic Name Dose Route Start Last Admin Trade Name Javier PRN Reason Stop Dose Admin Famotidine 20 mg 09/20/24 16:19 09/20/24 16:25 Famotidine 20mg Tablet PO 09/20/24 16:20 20 mg ONCE ONE Administration Iopamidol 150 ml 09/20/24 15:47 09/20/24 15:49 Iopamidol-370 (76%);100ml Bottle IV 09/20/24 15:48 150 ml ONCE ONE Administration Morphine Sulfate 4 mg 09/20/24 16:19 09/20/24 16:25 Morphine 4mg/Ml Syringe IV 09/20/24 16:20 4 mg ONCE ONE Administration Ondansetron HCl 4 mg 09/20/24 16:19 09/20/24 16:25 Ondansetron 4mg/2ml Vial IV 09/20/24 16:20 4 mg ONCE ONE Administration Ropinirole HCl 1 mg 09/20/24 18:17 09/20/24 18:27 Ropinirole 1mg Tablet PO 09/20/24 18:18 1 mg ONCE ONE Administration Sodium Chloride 100 ml 09/20/24 15:47 09/20/24 15:49 0.9 % Sodium Chloride 50 Ml Vial IV 09/20/24 15:48 100 ml ONCE ONE Administration ORDERS Category Date Time Status Type and Screen Stat BBK 09/20/24 17:[address] abdomen pelvis wo con Stat Cat Scan 09/20/24 13:[address] angio abdomen/femoral Stat Cat Scan 09/20/24 15:27 Completed Complete Blood Count Auto Diff Stat Lab 09/20/24 13:37 Completed Comprehensive Metabolic Panel Stat Lab 09/20/24 13:37 Completed Hemoglobin and Hematocrit Stat Lab 09/20/24 17:50 Completed Magnesium Stat Lab 09/20/24 13:37 Completed PT INR [Prothrombin Time INR] Stat Lab 09/20/24 13:37 Completed PTT [Activated Partial Thrombo Time] Stat Lab 09/20/24 13:37 Completed US scrotum [US Testicular] Stat Ultrasound 09/20/24 13:46 Completed ECG Data Tracing #1: Independently interpreted by me rate of 70, rhythm is regular, ventricular paced, no overt ST elevation in anatomical contiguous leads with reciprocal changes. QTc 388. <Iraj Crandall MD - Last Filed: 09/20/24 19:25> Vital Signs: 09/20/24 13:31 09/20/24 13:31 09/20/24 13:38 Temperature 98.6 F 98.6 F Temperature Source Oral Oral Pulse Rate 75 68 Pulse Rate [Right] 75 Respiratory Rate 19 19 Blood Pressure 132/56 L 143/70 H Blood Pressure [Right Arm] 132/56 L Blood Pressure Mean 95 Blood Pressure Mean [Right Arm] 81 Blood Pressure Source Automatic Cuff Blood Pressure Source [Right Arm] Automatic Cuff Blood Pressure Position Supine Blood Pressure Position [Right Arm] Supine 02 Sat by Pulse Oximetry 97 97 97 Oxygen Delivery Method Room Air Room Air 09/20/24 14:01 09/20/24 14:47 09/20/24 15:31 Temperature Temperature Source Pulse Rate 65 71 78 Pulse Rate [Right] Respiratory Rate Blood Pressure 160/71 H 120/55 L 177/75 H Blood Pressure [Right Arm] Blood Pressure Mean 99 Blood Pressure Mean [Right Arm] Blood Pressure Source Blood Pressure Source [Right Arm] Blood Pressure Position Blood Pressure Position [Right Arm] 02 Sat by Pulse Oximetry 93 L 100 96 Oxygen Delivery Method Room Air 09/20/24 16:01 09/20/24 16:31 09/20/24 17:00 Temperature Temperature Source Pulse Rate 76 77 74 Pulse Rate [Right] Respiratory Rate Blood Pressure 132/50 L 114/54 L 127/57 L Blood Pressure [Right Arm] Blood Pressure Mean Blood Pressure Mean [Right Arm] Blood Pressure Source Blood Pressure Source [Right Arm] Blood Pressure Position Blood Pressure Position [Right Arm] 02 Sat by Pulse Oximetry 97 97 98 Oxygen Delivery Method Room Air 09/20/24 18:01 09/20/24 18:45 Temperature Temperature Source Pulse Rate 75 71 Pulse Rate [Right] Respiratory Rate Blood Pressure 148/70 H 127/52 L Blood Pressure [Right Arm] Blood Pressure Mean Blood Pressure Mean [Right Arm] Blood Pressure Source Blood Pressure Source [Right Arm] Blood Pressure Position Blood Pressure Position [Right Arm] 02 Sat by Pulse Oximetry 97 99 Oxygen Delivery Method Room Air Room Air Lab Data Lab Results 09/20/24 13:37: WBC 12.3 H, RBC 2.70 L, Hgb 8.4 L, Hct 24.9 L, MCV 92.2, MCH 31.1, MCHC 33.7, RDW 13.6, Plt Count 380, MPV 9.0, Neut % (Auto) 73.9, Lymph % (Auto) 13.6, [place] % (Auto) 9.3, Eos % (Auto) 1.9, Baso % (Auto) 0.3, Neut # (Auto) 9.1 H, Lymph # (Auto) 1.7, [place] # (Auto) 1.1 H, Eos # (Auto) 0.2, Baso # (Auto) 0.0, PT 10.9, INR 0.98, APTT 26.7, Sodium 132 L, Potassium 5.1, Chloride 99, Carbon Dioxide 24, Anion Gap 14.1, BUN 33 H, Creatinine 1.00, Estimated Creat Clear 103, Estimated GFR 75, Est GFR ( Amer) 91, Glucose 135 H, Calcium 9.2, Magnesium 2.0, Total Bilirubin 0.7, AST 18, ALT 18, Alkaline Phosphatase 115, Total Protein 6.7, Albumin 3.8, Globulin 2.9, Albumin/Globulin Ratio 1.3 09/20/24 17:35: Blood Type A Negative, Antibody Screen Negative 09/20/24 17:50: Hgb 8.6 L, Hct 25.6 L Orders (Tests/Meds): ED MEDICATIONS Generic Name Dose Route Start Last Admin Trade Name Freq PRN Reason Stop Dose Admin Sodium Chloride 10 ml 09/20/24 15:47 09/20/24 15:49 Sodium Chloride 0.9% 10ml Syr (Rad Only) IV 10/20/24 15:46 10 ml NEEDED PRN Administration Maintain IV Site Discontinued Medications Generic Name Dose Route Start Last Admin Trade Name Freq PRN Reason Stop Dose Admin Famotidine 20 mg 09/20/24 16:19 09/20/24 16:25 Famotidine 20mg Tablet PO 09/20/24 16:20 20 mg ONCE ONE Administration Iopamidol 150 ml 09/20/24 15:47 09/20/24 15:49 Iopamidol-370 (76%);100ml Bottle IV 09/20/24 15:48 150 ml ONCE ONE Administration Morphine Sulfate 4 mg 09/20/24 16:19 09/20/24 16:25 Morphine 4mg/Ml Syringe IV 09/20/24 16:20 4 mg ONCE ONE Administration Ondansetron HCl 4 mg 09/20/24 16:19 09/20/24 16:25 Ondansetron 4mg/2ml Vial IV 09/20/24 16:20 4 mg ONCE ONE Administration Ropinirole HCl 1 mg 09/20/24 18:17 09/20/24 18:27 Ropinirole 1mg Tablet PO 09/20/24 18:18 1 mg ONCE ONE Administration Sodium Chloride 100 ml 09/20/24 15:47 09/20/24 15:49 0.9 % Sodium Chloride 50 Ml Vial IV 09/20/24 15:48 100 ml ONCE ONE Administration ORDERS Category Date Time Status Type and Screen Stat BBK 09/20/24 17:[address] abdomen pelvis wo con Stat Cat Scan 09/20/24 13:[address] angio abdomen/femoral Stat Cat Scan 09/20/24 15:27 Completed Complete Blood Count Auto Diff Stat Lab 09/20/24 13:37 Completed Comprehensive Metabolic Panel Stat Lab 09/20/24 13:37 Completed Hemoglobin and Hematocrit Stat Lab 09/20/24 17:50 Completed Magnesium Stat Lab 09/20/24 13:37 Completed PT INR [Prothrombin Time INR] Stat Lab 09/20/24 13:37 Completed PTT [Activated Partial Thrombo Time] Stat Lab 09/20/24 13:37 Completed US scrotum [US Testicular] Stat Ultrasound 09/20/24 13:46 Completed Medical Decision Narrative: 64-year-old male presents to the emergency department for hematoma rule out, via PCP, differential diagnosis include but not limited to, retroperitoneal hematoma, pseudoaneurysm, postoperative hematoma, acute blood loss anemia among others. I discussed patient case with attending physician Dr. Chavez as well as attending physician Will obtain basic laboratory studies, groin/scrotal ultrasound, as well as CT abdomen pelvis without contrast to rule out retroperitoneal hematoma, EKG and coags. CBC is notable for mild leukocytosis of 12.3, erythrocyttopenia 2.7, hemoglobin is 8.4 hematocrit is 24.9, this is mildly decreased from previous lab draw which was 8.3 this a.m., and on the was 10.7, on the day of the procedure on the patient's hemoglobin was 11.6. Coags within normal limits CMP is notable for mild BUN elevation at 33, mild hyponatremia 132 otherwise unremarkable I reviewed the patient's testicular/scrotal ultrasound along with corresponding radiologic report, normal right testes/scrotum, 1.9 cm hypoechoic structure left scrotum could represent an atrophic testes mass or chronic hematoma. Will obtain CTA abdomen pelvis with femoral runoff, to rule out pseudoaneurysm formation as the patient has dropped his hemoglobin around 4 points in less than 10 days. I reviewed the patient's CT abdomen pelvis without contrast along the corresponding radiologic report, no retroperitoneal or inguinal hemorrhages endophyte, there is a moderate infiltrative type hemorrhage in the left inguinal area of the upper thigh consider Doppler examination of potential underlying pseudoaneurysm if clinically indicated. I was notified by nursing staff at approximately 4 PM, that the patient is becoming quite agitated and using curse words, and is wanting to leave AGAINST MEDICAL ADVICE. I proceeded to go to the bedside and have a long discussion with the patient at approximately 4:05 PM, patient is quite aggravated about his length of stay thus far, however realizes the gravity of the situation, and is willing to wait on his CTA results, however he would like some pain medication , as well as some heartburn medication . Will give the patient 20 mg p.o. Pepcid, 4 mg IV morphine and 4 mg of Zofran for pain. 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 I attempted to page the on-call test pilot at approximately 4:36 PM, he will call back. Will also type and screen the patient. I discussed this patient's case with Dr. Workman of the test pilot and the physician who performed the procedure 1 week ago, he recommends [facility] or higher level of care with vascular surgery. Will also repeat hemoglobin hematocrit. Repeat hemoglobin is 8.6.\ Was notified by nursing staff at approximately 6:15 PM the patient is requesting his restless leg medication , patient takes ropinirole 1 mg p.o. twice daily, will give 1 mg ropinirole Blood type is A-. I discussed this patient's case with Dr.Aamanda Nowak the on-call vascular surgeon at approximately 6:45 PM she is agreement with current treatment plan/transfer plan, for complex pseudoaneurysm, most likely requiring surgical intervention, patient will be transferred [facility] ED to ED transfer. I was consulted by the YOBANY, and we discussed the complexity of the problems being addressed. I approved the treatment and management plan for this patient's care in the Emergency Department, thus performing a substantive portion of the medical decision making. Iraj Crandall MD Critical Care <Joel Chavez MD - Last Filed: 09/20/24 15:51> Critical Care Time Critical Care Time: No <Iraj Crandall MD - Last Filed: 09/20/24 19:25> Critical Care Time Critical Care Time: Yes (vascular, hematologic) Attestation: On 09/20/24, the high probability of a clinically significant, sudden or life threatening deterioration of the following system(s) required my full and direct attention, intervention and personal management. The time I documented below is in addition to time spent performing reported procedures but includes the following listed in this critical care notation. Total Time Total Critical Care Time: 45
[2024-09-20 13:45] LABS: Basophils % 0.3 % (0.1-2.0); Eosinophils # 0.2 Kmm3 (0.0-0.4); Eosinophils % 1.9 % (0.1-12.0); Hematocrit 24.9 % (42.0-52.0); Hemoglobin 8.4 g/dL (14.1-18.0); Immature Granulocytes # 0.12 10^3uL; Lymphocytes # 1.7 K/mm3 (0.7-4.5); Lymphocytes % 13.6 % (10-50); Mean Corpuscular HGB Conc 33.7 g/dL (31.8-35.4); Mean Corpuscular Hemoglobin 31.1 pg (27.0-31.2); Mean Corpuscular Volume 92.2 fl (80-94); Monocytes # 1.1 K/mm3 (0.1-1.0); Monocytes % 9.3 % (1.7-9.3); Neutrophils # 9.1 K/mm3 (1.8-7.8); Neutrophils % 73.9 % (37.0-80.0); Nucleated Red Blood Cells # 0 10^3/uL; Nucleated Red Blood Cells % 0 %; Platelet Count 380 K/mm3 (142-424); Red Cell Distribution Width 13.6 % (11.5-17.5); Red Cell Distribution Width-SD 45.1 fL; White Blood Count 12.3 K/mm3 (4.8-10.8)
--- NOTE | 2024-09-20 13:46 | US_ITS ---
FINAL REPORT CLINICAL HISTORY: R/O hematoma from recent procedure-- lt test removed COMPARISON: 09/21/2020 FINDINGS: SCROTAL ULTRASOUND FINDINGS: The right testis is homogeneous without mass. There is normal flow. There is a rounded structure in the left scrotum measuring up to 1.9 cm without appreciable flow. Although echotexture appears nodule similar to testis, patient has undergone reported orchiectomy. If surgical history is accurate, this could represent a mass or hematoma. The previously noted large complex hydrocele is no longer evident. IMPRESSION: Normal right testis/scrotum. 1.9 cm hypoechoic structure left scrotum could represent atrophic testis, mass, or chronic hematoma. Reviewed, Interpreted and Dictated by Nikia Zamora MD Transcribed by Nallely Ricks Authenticated and [facility]
--- NOTE | 2024-09-20 13:53 | CT_ITS ---
FINAL REPORT TECHNIQUE: Noncontrast CT exam of the abdomen and pelvis. This study was performed with techniques to keep radiation doses as low as reasonably achievable (ALARA). Individualized dose reduction techniques using automated exposure control or adjustment of mA and/or kV according to the patient's size were employed. CLINICAL HISTORY: R/O retroperitoneal hematoma from recent angiogram COMPARISON: None FINDINGS: CT ABDOMEN PELVIS WITHOUT CONTRAST: Abdomen: Lung bases are clear. Liver, spleen, pancreas and adrenal glands have a normal CT appearance in their limited unenhanced state. The gallbladder is mildly distended and without evidence of stones or biliary ductal dilatation. The kidneys show no stone disease or obstruction. No obvious renal mass is present. No ureteral stones are present. There is moderate fecal impaction of the right colon. Pelvis: No distal ureteral stones are seen. Bladder is unremarkable. No fluid collection or adenopathy is seen. Left iliac artery stents are present, with moderate plaque in the right iliac artery. No retroperitoneal hemorrhage is noted in the pelvis. There is mild distention of the urinary bladder. There is moderate infiltrative type hemorrhage in the inguinal region of the left upper thigh, with 2 areas of more circumscribed hemorrhage, measuring 25 and 38 mm respectively, superficial. Would consider Doppler examination to exclude underlying pseudoaneurysm as indicated. IMPRESSION: 1. No retroperitoneal or inguinal hemorrhage is identified. 2. There is moderate infiltrative type hemorrhage in the left inguinal area of the upper thigh. Consider Doppler examination for potential underlying pseudoaneurysm if clinically indicated. Reviewed, Interpreted and Dictated by Nikia Zamora MD Transcribed by Phyllis Boothe Authenticated and [facility]
[2024-09-20 13:57] LABS: Albumin Level 3.8 g/dl (3.5-5.0); Chloride 99 mmol/L (98-107); Sodium 132 mmol/L (136-145)
[2024-09-20 13:58] LABS: Potassium 5.1 mmoL/L (3.5-5.1)
[2024-09-20 13:59] LABS: INR 0.98 (0.9-1.1); Prothrombin Time 10.9 seconds (10.1-12.5)
[2024-09-20 14:00] LABS: Alanine Aminotransferase 18 U/L (12-78); Anion Gap 14.1 mEq/L (5-15); Aspartate Amino Transferase 18 U/L (17-59); Blood Urea Nitrogen 33 mg/dl (9-20); Carbon Dioxide 24 mmol/L (22.0-30.0); Creatinine Clearance Estimated 103 mL/min (50-200); Estimated Glomerular Filt Rate 75 ml/min (>60); GFR (African American) 91 ML/MIN (>60)
[2024-09-20 14:01] LABS: Activated Partial Thrombo Time 26.7 seconds (22.8-30.6); Albumin/Globulin Ratio 1.3 (1.1-1.8); Alkaline Phosphatase 115 U/L (38-126); Bilirubin,Total 0.7 mg/dl (0.2-1.3); Calcium 9.2 mg/dl (8.4-10.2); Globulin 2.9 g/dL (1.3-3.2); Glucose 135 mg/dl (74-100); Total Protein,Serum 6.7 g/dl (6.3-8.2)
--- NOTE | 2024-09-20 14:45 | ECG_ITS ---
APPROVED REPORT Exam: Resting ECG HR:70 bpm ECG Measurements Heart Rate 70 AXES MS 173 P 71 QRSd 127 QRS 24 QT 367 T 59 QTc 388 Conclusion V paced rhythm No STEMI Electronically signed by : JASE PIKE, 09/20/2024 22:55:56
--- NOTE | 2024-09-20 15:27 | CT_ITS ---
FINAL REPORT CLINICAL HISTORY: R/O pseudoaneurysm COMPARISON: None FINDINGS: CTA ABDOMEN, CTA PELVIS AND CTA LOWER EXTREMITY RUNOFF TECHNIQUE: Thin section axial CT with IV contrast supplemented with 3D MIP reconstruction under CT Angiogram protocol This study was performed with techniques to keep radiation doses as low as reasonably achievable, (ALARA). Individualized dose reduction techniques using automated exposure control or adjustment of mA and/or kV according to the patient's size were employed. CT ANGIOGRAM ABDOMEN AND PELVIS: The abdominal aorta demonstrates moderate diffuse plaque disease. 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 The SMA and YOLIS are widely patent. Codominant right renal arteries are widely patent. Right renal artery is widely patent. Significant iliac plaque disease is noted. Moderate right common iliac artery stenosis measures up to 40%. Moderate right external iliac artery stenosis measures up to 50%. Left common and external iliac artery stents are widely patent. CTA RIGHT LOWER EXTREMITY: Heavily calcified plaque causing 50% PORTFOLIO ARCHITECT stenosis. Multicentric [id number] stenosis right SFA and popliteal artery. No critical stenosis seen. Calf veins are poorly evaluated due to motion and excessive venous opacification. Proximal posterior tibial occlusion. Two vessel runoff in the proximal calf. CTA LEFT LOWER EXTREMITY: Moderate stenosis left PORTFOLIO ARCHITECT. Multilobulated pseudo aneurysm noted measuring 42 x 20 mm with relatively wide neck measuring up to 8 mm in diameter. Surrounding hemorrhage is stable from CT 1 hour prior. Left profunda circulation inferiorly with long segment chronic occlusion of the left SFA. There is reestablished flow into the distal left SFA through collaterals. Popliteal artery is widely patent. Two-vessel runoff in the left calf through anterior peroneal arteries. Reconstituted flow in the distal posterior tibial artery. 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 Long segment chronic left SFA occlusion. Moderate right SFA and popliteal disease with two-vessel runoff. Reviewed, Interpreted and Dictated by Nikia Zamora MD Transcribed by Nallely Ricks Authenticated and [facility]
--- NOTE | 2024-09-20 15:33 | PC.NURSE ---
pt to scan via wheelchair
[2024-09-20] MEDS: SODIUM CHLORIDE 0.9% 10ML SYR (RAD ONLY) 10 ML IV (15:49)
[2024-09-20] MEDS: IOPAMIDOL-370 (76%);100ML BOTTLE 150 ML IV (15:49)
[2024-09-20] MEDS: 0.9 % SODIUM CHLORIDE 50 ML VIAL 100 ML IV (15:49)
--- NOTE | 2024-09-20 15:50 | HMH.ITSTN ---
Per Jerald, okay to scan without labs
[2024-09-20] MEDS: ONDANSETRON 4MG/2ML VIAL 4 MG IV (16:25)
[2024-09-20] MEDS: MORPHINE 4MG/ML SYRINGE 4 MG IV (16:25)
[2024-09-20] MEDS: FAMOTIDINE 20MG TABLET 20 MG PO (16:25)
--- NOTE | 2024-09-20 17:12 | PC.NURSE ---
Paged Dr Workman for per Dr Crandall
--- NOTE | 2024-09-20 17:23 | PC.NURSE ---
Called [facility] per Dr GLENDA Marques to speak with them about this pt for a pseudoaneurysm of the left femoral artery. has me on hold while she is trying to reach the hospitalist or [facility]..
[2024-09-20 17:56] LABS: Hematocrit 25.6 % (42.0-52.0); Hemoglobin 8.6 g/dL (14.1-18.0)
--- NOTE | 2024-09-20 18:01 | PC.NURSE ---
Called [facility] to see if they had received the images. In which they have not. So called Radiology back and asked them to powershare the images again to [facility]
[2024-09-20] MEDS: ROPINIROLE 1MG TABLET 1 MG PO (18:27)
--- NOTE | 2024-09-20 18:37 | PC.NURSE ---
Called again per GLENDA Marques to see if had received the images to see if he could speak with somebody at . While on the phone was put on hold while they were checking. Came back on and they are checking to see if he could connect me with [facility].and GLENDA Marques is speaking with at this time.
--- NOTE | 2024-09-20 19:33 | PC.NURSE ---
Report called to [facility] and spoke to Bhavana GONZALES
== END 2024-09-20 20:30 | disposition other institution (70) ==
PROVIDERS: Physician Assistant; Emergency Provider Emergency Medicine; PCP Family Medicine
DX: I72.4 Aneurysm of artery of lower extremity (principal); F17.210 Nicotine dependence, cigarettes, uncomplicated
CPT/HCPCS: 36415; 74176; 75635; 76870; 80053; 83735; 85014; 85018; 85025; 85610; 85730; 86850; 93005; 96374; 96375; 99285; J2270; J2405; Q9967

== ENCOUNTER 2024-11-05 11:38 | Emergency (ER) | payer MEDICARE, OTHER, SELFPAY ==
--- OUTSIDE RECORDS SUMMARY | 2024-09-20 21:25 | XMS_ITS | Encounter Summary ---
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 Name Role Phone Asad Victor MD Primary Care Provider + [phone] Reason for Visit * Auth/Cert (Routine) Specialty Diagnoses / Procedures Referred By Susan t Referred To Contact Diagnoses Pseudoaneurysm of left femoral artery (CMS/HCC) PSUEDO ANEURYSM Nathaly Nowak MD [address] [address] Phone: tel: fax: [facility] A Emergency Department [address] [place] [address] Phone: tel: Referral ID Status Reason Start Date Expiration Date Visits Re quested Visits Authorized [id number] 1 1 Encounter Details Date Type Department Care Team (Latest Contact Info) Description 09/20/2024 9:25 PM EDT - 09/22/2024 4:00 PM EDT Hospital Encounter [facility] Inpatient [address] [place] [address] Robbie Braxton MD [address] [place] [address] Nathaly Nowak MD [address] [address] Pseudoaneurysm of left femoral artery (CMS/HCC) [...] drink first t dino in the morning (EYE-SUPPLY CHAIN INTERN) to steady your nerves or to get [...] Wish to be (Past 1 Month) No 06/29/2 025 8:10 AM EDT Melecio Vega RN 2. Non-Specific Active Suici marcelle Thoughts (Past 1 Month) No 09/22/2024 8:10 AM EDT Apollo Vega RN 6. Suicidal Behavior (Lifetime) No 8:10 AM EDT Melecio Vega RN documented as of this encounter Discharge Instructions [...] to schedule you next surgery. Questions: Call [phone] during business hours on or call [facility]'s after hours at [phone] to speak with a resident plastic production machine setter for Vascular Surgery after 5pm or on [...] Carmona with any questions or concerns at [phone]. It is important that you get your [...] Inject 28 Units under the skin nightly. insulin lispro protamine-insulin lispro (HumaLOG Mix 75-25) (75-25) 100 UNIT/ML injection vial Inject 12 Units under the skin 2 times a day with meals. lisinopril 10 MG tablet Take 1 tablet [...] 2 times a day with meals. 10/19/2024 isosorbide mononitrate ER (Imdur) 60 MG 24 [...] T2DM, HLD, HTN, RLS who presented to [facility] with a large left common [...] discharge instructions. No distress noted. Patient to pickle sorter meds to beds medications upon discharge. Awaiting his ride to arrive. Patient states his discharge ride is about 40 minutes away. * [facility] - Melecio Vega RN - 09/22/2024 2:52 PM EDT Images from the original note were not included. [id number] Peripheral Artery Disease (PAD) Peripheral artery disease [...] cause. Last Reviewed Date: 2024 00:00:00 ?? [id number] [employer]. All rights reserved. This information is not intended as a substitute for professional medical care. Always follow your healthcare professional's instructions. * [facility] - Melecio Vega RN - 09/22/2024 2:52 PM EDT Images from the original note were not included. [id number] Taking Aspirin for Atherosclerosis Aspirin is a [...] This includes: ? All prescription medicines ? Dyko-mvf-labvcmq medicines ? Herbs, vitamins, and other supplements [...] pain Last Reviewed Date: 2022 00:00:00 ?? [id number] [employer]. All rights reserved. This information is not [...] name and Address: Asad Victor MD (Inactive) [address] [facility] [address] Referring provider name and address: Timothy Marques PA [address] [place] [address] Chief Concern, Brief History of Present Illness, and Hospital Course Mono Bobby is a 64 y.o. male with PMHx notable for COPD, CAD s/p PCI with pacemaker on Xarelto, T2DM, HLD, HTN, RLS who presented to [facility] with a large left common [...] Your Medications These medications were sent to [facility] - [place], [place] - [address] [facility] [address] oxyCODONE 5 MG immediate release tablet Discharge [...] soap and water daily. Pat to dry. Imboden/ sutures will be removed at postoperative follow [...] to schedule you next surgery. Questions: Call [phone] during business hours on weekdays or call [facility]'s after hours at [phone] to speak with a resident plastic production machine setter for Vascular Surgery after 5pm or on [...] Carmona with any questions or concerns at [phone]. It is important that you get your [...] and Manage Fall Risk Flowsheets (Taken 09/22/2024 0929) Safety Promotion/Fall Prevention: activity supervised assistive device/personal [...] - Regular diet - Repeat duplex 09/22 [facility] - consider IO cath if sensation of full bladder returns * Care Plan - Leigh Slater RN - 09/21/2024 6:34 PM EDT Problem: Adult Inpatient Plan of Care Goal: Plan of Care Review Outcome: Ongoing, Progressing Flowsheets (Taken 09/21/20241828) Progress: improving Plan of Care Reviewed With: patient Goal: Patient-Specific Goal (Individualized) Outcome: Ongoing, Progressing Flowsheets Taken 09/21/20241828 by Leigh Slater, RN Anxieties, Fears or Concerns: pain Taken [...] from the original note were not included. [facility] Department of Surgery Division of Vascular Surgery Surgery Progress Note 09/21/24 Mono Bobby Subjective Subjective: HPI Mono Bobby is a 64 y.o. 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 09/21: Thrombin injection of left common femoral artery pseudoaneurysm Interval: NAEON. He reports feeling well. Still having some groin pain. Duplex confirmed PSA. Discussed treatment with thrombin injection and pt would like to proceed. 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 Duplex today confirmed it was a pseudoaneurysm. Thrombin injection performed today. He tolerated the procedure well. POC later tonight. Plan: [ ] Post op check at 1999 - Continue strict bedrest - Regular diet - Duplex 09/21: showed DIRECTOR ORACLE pseudoaneurysm - Repeat duplex 09/22 - [facility] Edited by: Anthony Keenan MD at 09/21/2024 4756 Dispo: Continue Current Level of Care Philipp Keenan MD General Surgery, PGY 1 Pager: [phone] Cosigned by Terrell Gautam MD at 09/23/2024 [...] femoral artery pseudoaneurysm Attending Surgeon(s): Terrell Gautam Bed Machine Operator(s): Jerry Holcomb Anesthesia: local ASA: 3 [...] pseudoaneurysm sac is far away from the tolowa dee-ni' artery as possible. Very slowly 0.2 cc [...] from the original note were not included. [facility] Department of Surgery Division of Vascular Surgery History & Physical Note Reason for Consult: Chris jackson PSA Requesting Service: Emergency Department Consult Date and Time: 09/20/2024 0130 Consult to Vascular Surgery Consult performed by: Shaila Lord Consult ordered by: Robbie Braxton MD Subjective History of Present Illness: Chief Complaint: Groin pain Mono Bobby is a 64 y.o. male with PMHx significant for COPD, CAD s/p PCI with pacemaker onXarelto, T2DM, HLD, HTN, RLS who presented to the [facility] on 09/20/2024 as a transfer [...] At that time, the patient presented to [facility] and underwent an updated CTA which demonstrated concern for a left common femoral artery pseudo aneurysm. He was transferred to the [facility] for a higher level of care. [...] MINUTES. IF NO RELIEF AFTER 3 DOSES [id number]/GO TO ER 11/02/21 Darby Camara MD pravastatin [...] T2DM, HLD, HTN, RLS who presented to [facility] with a large left common [...] ongoing surgical planning. Plan: - Admit to [facility] - Strict bedrest - NPO, mIVF - Will discuss surgical options in the morning Dispo: Admit to [facility] CODE STATUS: full code This Consult, Assessment, and Plan has been discussed with Dr. Nowak, Attending Physician Shaila Lord [1] Past Medical History: Diagnosis Date Arthritis Old myocardial infarction History of myocardial infarction [2] No Known Allergies [3] Past Surgical History: Procedure Laterality Date ANKLE SURGERY Right CAROTID ENDARTERECTOMY N/A Endarterectomy Carotid Artery from [employer] CORONARY ANGIOPLASTY Left Coronary Angiography With Concomitant Left Heart Catheterization from [employer] CORONARY ARTERY BYPASS GRAFT N/A CABG from [employer] ELBOW SURGERY Right OTHER SURGICAL HISTORY N/A Reported Prior Surgical / Procedural History from [employer] [4] Family History Problem Relation Name Age [...] MINUTES. IF NO RELIEF AFTER 3 DOSES ESQQ036/GO TO ER pravastatin (Pravachol) 80 MG tablet [...] [facility]. In [facility] department they obtained a CTA with runoff of the lower extremities which found a left-sided femoral pseudoaneurysm. The patient was transferred here for higher level of care. He has not had any lower extremity pallor, pain, weakness, or sensory changes. History provided by: Patient and medical records siebel developer used: No Patient History Past Medical History[1] [...] and Affect: Mood normal. Behavior: Behavior normal. Pryor Coma Scale Score: 15 ED Course & [...] Other Orders Ordered Status Ordering Provider 09/21/24 0103 Consult to Vascular Surgery Once Specialty: Vascular Surgery Provider: (Not yet assigned) Ordered NESTOR YTLER 09/20/242223 CMP STAT Final result NESTOR TYLER [...] HIV 1/2 Differentiation PROCEDURE ONCE Final result NAYELI, NESTOR T Labs personally interpreted by me demonstrate no [...] Acute Floor (Med/Surg). - Clare Brewer, MS4 Roger Tyler DO saw and evaluated the patient [...] CAROTID ENDARTERECTOMY N/A Endarterectomy Carotid Artery from [employer] CORONARY ANGIOPLASTY Left Coronary Angiography With Concomitant Left Heart Catheterization from [employer] CORONARY ARTERY BYPASS GRAFT N/A CABG from [employer] ELBOW SURGERY Right OTHER SURGICAL HISTORY N/A Reported Prior Surgical / Procedural History from [employer] [3] Family History Problem Relation Name Age [...] - 09/20/2024 9:22 PM EDT Arrived from [facility] pt transferred from [facility] c/o left groin pain pt had stent x2 on 09/12 went to cardiology and was told to go to hospital. documented in this encounter Plan of Treatment Upcoming Encounters Date Type Department Care Team (Late st Contact Info) Description 11/26/2024 2:[address] [facility] [address] [place] [address] 11/26/2024 2:[address] [facility] [address] [place] [address] 11/26/2024 3:20 PM EDT Office Visit [facility] [address] [place] [address] Elisabet Schuster, PA [address] [facility] [address] [place] [address] documented as of this encounter Procedures Procedure [...] POCT glucose meter (09/22/2024 11:06 AM EDT) [facility] POCT Glucose 190(H) 74 - 99 mg/dL 09/22/2024 11:11 AM EDT [facility] Comment:Accuracy of a glucos e result [...] for testing. Comment 09/22/2024 11:11 AM EDT [facility] Topstitcher Lockstitch ID Zena Rios 025 11:11 AM EDT [facility] Device ID [id number] 09/22/2024 11:11 AM EDT [facility] Specimen Type POC Capillary 09/22/2024 11:11 AM EDT [facility] Blood Capillary blood specimen / Unknown 09/22/2024 11:06 AM EDT 09/22/2024 11:11 AM EDT Nathaly Nowak MD LAB POINT OF CARE TE ST DOCKED DEVICE UNSOLICITED RESULTS Final Result [facility] [address] [place] [id number] * VAS US Arterial Duplex Lower Extremity [...] 7:15 PM EDT CLINICAL INDICATION: s/p L DIRECTOR ORACLE pseudoaneurysm injection TECHNIQUE: Non-invasive, real time duplex [...] sac. The following flow velocities were obtained: DIRECTOR ORACLE: 114 cm/s SFA: 0 cm/s PFA: 278 cm/s Popliteal A: 41 cm/s OBSERVER HELPER distal: 43 cm/s DPA: 67 cm/s Pseudoaneurysm sac: 0 cm/s Procedure Note Neil Isaac MD - 09/22/2024 CLINICAL INDICATION: s/p L DIRECTOR ORACLE pseudoaneurysm injection TECHNIQUE: Non-invasive, real time duplex exam of the lower extremity arterialcirculation with Doppler ultrasonic waveform and spectral analysis wasperformed. COMPARISON: Post pseudoaneurysm thrombin injection arterial duplex [id number]/28/2025; Following thrombin injection of the left common femoral arterypseudoaneurysm, no active flow is noted. Study suggests successfulthrombin injection therapy FINDINGS: Left: Following thrombin injection, an echogenic thrombus is noted within thepseudoaneurysm sac. Color and pulsed Doppler analysis demonstrates anabsence of flow within the pseudoaneurysm sac. The following flowvelocities were obtained: DIRECTOR ORACLE: 114 cm/s SFA: 0 cm/s PFA: 278 cm/s Popliteal A: 41 cm/s OBSERVER HELPER distal: 43 cm/s DPA: 67 cm/s Pseudoaneurysm [...] Neil Isaac MD on 09/22/2024 7:15 PM us Nathaly Nowak MD CV VASCULAR PROCEDURES Final [...] Comment 09/22/2024 7:22 AM EDT [facility] Topstitcher Lockstitch ID Zena Rios 025 7:22 AM EDT [facility] Device ID [id number] 09/22/2024 7:22 AM EDT [facility] Specimen Type POC Capillary 09/22/2024 7:22 AM EDT [facility] Blood Capillary blood specimen / Unknown 09/22/2024 7:19 AM EDT 09/22/2024 7:22 AM EDT Nathaly Nowak MD LAB POINT OF CARE TE ST DOCKED DEVICE UNSOLICITED RESULTS Final Result Performing Organization Address City/[facility] Co de Phone Number [facility] [address] [place] [address] * Magnesium (09/22/2024 3:49 AM EDT) Magnesium, Plasma 2.1 1.9 - 2.4 mg/dL 09/22/2024 4:49 AM EDT [facility] Blood Venous blood specimen / Unknown Venipuncture / Unknown 09/22/2024 3:49 AM EDT 09/22/2024 4:12 AM EDT us Nathaly Nowak MD LAB BLOOD ORDERABLES Final Resu lt [facility] [address] [place] [address] * Phosphorus (09/22/2024 3:49 AM EDT) Phosphorus, Plasma 2.9 2.5 - 4.5 mg/dL 09/22/2024 4:49 AM EDT [facility] Blood Venous blood specimen / Unknown Venipuncture / Unknown 09/22/2024 3:49 AM EDT 09/22/2024 4:12 AM EDT us Nathaly Nowak MD LAB BLOOD ORDERABLES Final Resu lt [facility] [address] [place] [address] * (ABNORMAL) Basic metabolic panel (09/22/2024 3:49 AM EDT) Pathologist [facility] Glucose, Plasma 132(H) 74 - 99 mg/dL 09/22/2024 4:49 AM EDT [facility] BUN, Plasma 15 8 - 23 mg/dL 09/22/2024 4:49 AM EDT [facility] Creatinine, Plasma 0.78 0.70 - 1.20 mg/dL 09/22/2024 4:49 AM EDT [facility] BUN/Creatinine Ratio 19 09/22/2024 4:49 AM EDT [facility] Sodium, Plasma 137 136 - 145 mmol/L 09/22/2024 4:49 AM EDT [facility] Potassium, Plasma 4.5 3.6 - 4.9 mmol/L 09/22/2024 4:49 AM EDT [facility] Chloride, Plasma 104 97 - 107 mmol/L 09/22/2024 4:49 AM EDT [facility] CO2, Plasma 24 22 - 29 mmol/L 09/22/2024 4:49 AM EDT [facility] Anion Gap 9 6 - 16 mmol/L 09/22/2024 4:49 AM EDT [facility] Total Calcium, Plasma 9.2 8.9 - 10.2 mg/dL 09/22/2024 4:49 AM EDT [facility] eGFRcr 99.0 mL/min/1.7 3m*2 09/22/2024 4:49 AM EDT [facility] Comment:Reported eGFRcr in m L/min/1.73m2 is based the CKD-EPI 2020 equation that does not use a race coefficient. Blood Venous blood specimen / Unknown Venipuncture / Unknown 09/22/2024 3:49 AM EDT 09/22/2024 4:12 AM EDT us Nathaly Nowak MD LAB BLOOD ORDERABLES Final Resu lt [facility] [address] [place] [address] * (ABNORMAL) CBC (09/22/2024 3:49 AM EDT) WBC Count 11.68(H) 3.70 - 10.30 10*3/uL LAB HEMATOLOGY METHOD 09/22/2024 4:26 AM EDT [facility] RBC Count 2.89(L) 4.60 - 6.10 10*6/uL LAB HEMATOLOGY METHOD 09/22/2024 4:26 AM EDT [facility] HGB 8.9(L) 13.7 - 17.5 g/dL LAB HEMATOLOGY METHOD 09/22/2024 4:26 AM EDT [facility] HCT 26.7(L) 40.0 - 51.0 % LAB HEMATOLOGY METHOD 09/22/2024 4:26 AM EDT [facility] Platelet Count 454(H) 155 - 369 10*3/uL LAB HEMATOLOGY METHOD 09/22/2024 4:26 AM EDT [facility] MCV 92 79 - 98 fL LAB HEMATOLOGY METHOD 09/22/2024 4:26 AM EDT [facility] MCH 30.8 26.0 - 32.0 pg LAB HEMATOLOGY METHOD 09/22/2024 4:26 AM EDT [facility] MCHC 33.3 30.7 - 35.5 g/dL LAB HEMATOLOGY METHOD 09/22/2024 4:26 AM EDT [facility] RDW 13.6 11.5 - 14.5 % LAB HEMATOLOGY METHOD 09/22/2024 4:26 AM EDT [facility] MPV 8.8 8.8 - 12.5 fL LAB HEMATOLOGY METHOD 09/22/2024 4:26 AM EDT [facility] nRBC 0.0 <=0.0 per 100 WBCs LAB HEMATOLOGY METHOD 09/22/2024 4:26 AM EDT [facility] Blood Venous blood specimen / Unknown Venipuncture / Unknown 09/22/2024 3:49 AM EDT 09/22/2024 4:14 AM EDT Nathaly Nowak MD LAB BLOOD ORDERABLES Final Resu lt Performing Organization Address City/[facility]/ZIP Co de Phone Number [facility] [address] [place] [address] * (ABNORMAL) POCT glucose meter (09/21/2024 8:45 PM EDT) POCT Glucose 235(H) 74 - 99 mg/dL 09/21/2024 8:47 PM EDT [facility] Comment:Accuracy of [...] for testing. Comment 09/21/2024 8:47 PM EDT [facility] Topstitcher Lockstitch ID Joy Reich 025 8:47 PM EDT [facility] Device ID [id number] 09/21/2024 8:47 PM EDT [facility] Specimen Type POC Capillary 09/21/2024 8:47 PM EDT [facility] Blood Capillary blood specimen / Unknown 09/21/2024 8:45 PM EDT 09/21/2024 8:47 PM EDT Nathaly Nowak MD LAB POINT OF CARE TE ST DOCKED DEVICE UNSOLICITED RESULTS Final Result Performing Organization Address City/[facility] Co de Phone Number [facility] [address] [place] [address] * (ABNORMAL) POCT glucose meter (09/21/2024 5:09 [...] Comment 09/21/2024 5:11 PM EDT [facility] Topstitcher Lockstitch ID Jojo Lange 025 5:11 PM EDT [facility] Device ID [id number] 09/21/2024 5:11 PM EDT [facility] Specimen Type POC Capillary 09/21/2024 5:11 PM EDT [facility] Blood Capillary blood specimen / Unknown 09/21/2024 5:09 PM EDT 09/21/2024 5:11 PM EDT us Nathaly Nowak MD LAB POINT OF CARE TE ST DOCKED DEVICE UNSOLICITED RESULTS Final Result Performing Organization Address City/State/[facility] Co de Phone Number [facility] [address] [place] [address] * VAS US Arterial Duplex Lower Extremity [...] 09/21/2024 7:35 PM EDT CLINICAL INDICATION: s/p DIRECTOR ORACLE pseudoaneurysm injection TECHNIQUE: Non-invasive, real time duplex exam of the lower extremity arterial circulation with Doppler ultrasonic waveform and spectral analysis was performed. COMPARISON: None. FINDINGS: Left: Following thrombin injection, an echogenic thrombus is noted within the pseudoaneurysm sac. Color and pulsed Doppler analysis demonstrates an absence of flow within the pseudoaneurysm sac. The following flow velocities were obtained: DIRECTOR ORACLE: 55 cm/s SFA: 0 cm/s Popliteal A: 51 cm/s OBSERVER HELPER distal: 35 cm/s DPA: 61 cm/s Pseudoaneurysm sac: 0 cm/s Procedure Note Neil Isaac MD - 09/21/2024 CLINICAL INDICATION: s/p DIRECTOR ORACLE pseudoaneurysm injection TECHNIQUE: Non-invasive, real time duplex exam of the lower extremity arterialcirculation with Doppler ultrasonic waveform and spectral analysis wasperformed. COMPARISON: None. FINDINGS: Left: Following thrombin injection, an echogenic thrombus is noted within thepseudoaneurysm sac. Color and pulsed Doppler analysis demonstrates anabsence of flow within the pseudoaneurysm sac. The following flowvelocities were obtained: DIRECTOR ORACLE: 55 cm/s SFA: 0 cm/s Popliteal A: 51 cm/s OBSERVER HELPER distal: 35 cm/s DPA: 61 cm/s Pseudoaneurysm [...] POCT glucose meter (09/21/2024 1:04 PM EDT) POCT Glucose 177(H) 74 - 99 mg/dL 09/21/2024 1:09 PM EDT [facility] Comment:Accuracy of a glucos e result [...] Comment 09/21/2024 1:09 PM EDT [facility] Topstitcher Lockstitch ID Ruth Solo 025 1:09 PM EDT [facility] Device ID [id number] 09/21/2024 1:09 PM EDT [facility] Specimen Type POC Capillary 09/21/2024 1:09 PM EDT [facility] Blood Capillary blood specimen / Unknown 09/21/2024 1:04 PM EDT 09/21/2024 1:09 PM EDT Nathaly Nowak MD LAB POINT OF CARE TE ST DOCKED DEVICE UNSOLICITED RESULTS Final Result Performing Organization Address City/[facility]/ZIP Co de Phone Number [facility] [address] [place] [address] * (ABNORMAL) POCT glucose meter (09/21/2024 12:24 PM EDT) [facility] POCT Glucose 153(H) 74 - 99 mg/dL [...] Comment 09/21/2024 12:26 PM EDT [facility] Topstitcher Lockstitch ID Ruth Solo 025 12:26 PM EDT [facility] Device ID [id number] 09/21/2024 12:26 PM EDT [facility] Specimen Type POC Capillary 09/21/2024 12:26 PM EDT [facility] Blood Capillary blood specimen / Unknown 09/21/2024 12:24 PM EDT 09/21/2024 12:26 PM EDT us Nathaly Nowak MD LAB POINT OF CARE TE ST DOCKED DEVICE UNSOLICITED RESULTS Final Result [facility] [address] [place] [id number] * VAS US Arterial Duplex Lower Extremity [...] neck. The following flow velocities were obtained: DIRECTOR ORACLE: 93 cm/s SFA: 0 cm/s Popliteal A: 36 cm/s OBSERVER HELPER distal: 34 cm/s DPA: 59 cm/s Pseudoaneurysm [...] neck. The following flow velocities were obtained: DIRECTOR ORACLE: 93 cm/s SFA: 0 cm/s Popliteal A: 36 cm/s OBSERVER HELPER distal: 34 cm/s DPA: 59 cm/s Pseudoaneurysm [...] Neil Isaac MD on 09/21/2024 7:32 PM us Nathaly Nowak MD CV VASCULAR PROCEDURES Final Re sult * (ABNORMAL) POCT glucose meter (09/21/2024 7:55 AM EDT) POCT Glucose 130(H) 74 - 99 mg/dL 09/21/2024 8:01 AM EDT [facility] Comment:Accuracy of a glucos e result [...] for testing. Comment 09/21/2024 8:01 AM EDT [facility] Topstitcher Lockstitch ID Ruth Solo 025 8:01 AM EDT [facility] Device ID [id number] 09/21/2024 8:01 AM EDT [facility] Specimen Type POC Capillary 09/21/2024 8:01 AM EDT [facility] Blood Capillary blood specimen / Unknown 09/21/2024 7:55 AM EDT 09/21/2024 8:01 AM EDT us Nathaly Nowak MD LAB POINT OF CARE TE ST DOCKED DEVICE UNSOLICITED RESULTS Final Result Performing Organization Address City/State/[facility] Co de Phone Number [facility] [address] [place] [address] * (ABNORMAL) POCT glucose meter (09/21/2024 6:06 [...] Comment 09/21/2024 6:09 AM EDT [facility] Topstitcher Lockstitch ID Yuan Griffin 09/22/19 6:09 AM EDT [facility] Device ID [id number] 09/21/2024 6:09 AM EDT [facility] Specimen Type POC Capillary 09/21/2024 6:09 AM EDT [facility] Blood Capillary blood specimen / Unknown 09/21/2024 6:06 AM EDT 09/21/2024 6:09 AM EDT Nathaly Nowak MD LAB POINT OF CARE TE ST DOCKED DEVICE UNSOLICITED RESULTS Final Result Performing Organization Address City/[facility] Co de Phone Number [facility] [address] [place] [address] * (ABNORMAL) POCT glucose meter (09/21/2024 2:27 AM EDT) POCT Glucose 194(H) 74 - 99 mg/dL [...] Comment 09/21/2024 2:34 AM EDT [facility] Topstitcher Lockstitch ID Ana Maria Corea 09/21/2024 2:34 AM EDT [facility] Device ID [id number] 09/21/2024 2:34 AM EDT [facility] Specimen Type POC Capillary 09/21/2024 2:34 AM EDT [facility] Blood Capillary blood specimen / Unknown 09/21/2024 2:27 AM EDT 09/21/2024 2:34 AM EDT Nathaly Nowak MD LAB POINT OF CARE TE ST DOCKED DEVICE UNSOLICITED RESULTS Final Result Performing Organization Address City/[facility] [facility] de Phone Number [facility] [address] [place] [address] * ECG Adult (09/21/2024 2:00 AM EDT) EKG DIAGNOSIS CLASS Abnormal MUSE ECG Ventricular Rate 85 BPM MUSE ECG Atrial Rate 85 BPM MUSE ECG DC Interval 146 ms MUSE ECG QRSD Interval 128 ms MUSE ECG QT Interval 390 ms MUSE ECG QTC Interval 464 ms MUSE ECG P [place] 52 degrees MUSE ECG R [place] 263 degrees MUSE ECG T Wave [place] 57 degrees MUSE ECG Diagnosis Atrial-sensed ventricular-pace [...] 1/2 Differentiation (09/20/2024 10:33 PM EDT) Pathologist [facility] HIV 1 & 2 Antibody/Antigen Screen Non Reactive Non Reactive 09/20/2024 11:39 PM EDT [facility] Comment:Screening for HIV 1 & 2 antibodies, and P24 antigen is NONREACTIVE. No confirmatory testing is required. Blood Venous blood specimen / Unknown Venipuncture / Unknown 09/20/2024 10:33 PM EDT 09/20/2024 10:54 PM EDT Giorgi Perkins MD LAB BLOOD ORDERABLES Final Result [facility] [address] [place] [address] * Hepatitis C Antibody - ED (09/20/2024 10:33 PM EDT) [facility] Hepatitis C Antibody Negative Negative 09/20/2024 11:39 PM EDT [facility] Blood Venous blood specimen / Unknown Venipuncture / Unknown 09/20/2024 10:33 PM EDT 09/20/2024 10:53 PM EDT Giorgi Perkins MD LAB BLOOD ORDERABLES Final Result [facility] [address] [place] [address] * APTT (09/20/2024 10:33 PM EDT) [facility] aPTT 28 25 - 35 sec LAB COAGULATION METHOD 09/21/2024 12:19 AM EDT [facility] Blood Venous blood specimen / Unknown Venipuncture / Unknown 09/20/2024 10:33 PM EDT 09/20/2024 10:42 PM EDT Giorgi Perkins MD LAB BLOOD ORDERABLES Final Result Performing Organization Address [facility] Co de Phone Number [facility] [address] [place] [address] * PT-INR (09/20/2024 10:33 PM EDT) Prothrombin Time 14.0 12.0 - 14.3 sec LAB COAGULATION METHOD 09/21/2024 12:19 AM EDT [facility] INR 1.1 0.9 - 1.1 LAB COAGULATION METHOD 09/21/2024 12:19 AM EDT [facility] Blood Venous blood specimen / Unknown Venipuncture / Unknown 09/20/2024 10:33 PM EDT 09/20/2024 10:42 PM EDT Narrative [facility] - 09/21/2024 12:19 AM EDT OPTIMAL INR RANGES FOR PATIENT ON ORAL ANTICOAGULANT THERAPY Prevention of venous thromboembolism INR 2.0 to 3.0 In patients with heart disease: Atrial fibrillation INR 2.0 to 3.0 Valvular heart disease INR 2.0 to 3.0 Tissue heart valves INR 2.0 to 3.0 Mechanical prosthetic valves INR 2.5 to 3.5 Prevention of recurrent OH INR 2.5 to 3.5 us Giorgi Perkins MD LAB BLOOD ORDERABLES Final Result Performing Organization Address [facility]/ZIP Co de Phone Number [facility] [address] [place] [address] * (ABNORMAL) CBC w/diff (09/20/2024 10:33 PM EDT) WBC Count 13.38(H) 3.70 - 10.30 10*3/uL LAB HEMATOLOGY METHOD 09/20/2024 11:00 PM EDT [facility] RBC Count 2.91(L) 4.60 - 6.10 10*6/uL LAB HEMATOLOGY METHOD 09/20/2024 11:00 PM EDT [facility] HGB 9.0(L) 13.7 - 17.5 g/dL LAB HEMATOLOGY METHOD 09/20/2024 11:00 PM EDT [facility] HCT 27.2(L) 40.0 - 51.0 % LAB HEMATOLOGY METHOD 09/20/2024 11:00 PM EDT [facility] Platelet Count 407(H) 155 - 369 10*3/uL LAB HEMATOLOGY METHOD 09/20/2024 11:00 PM EDT [facility] MCV 94 79 - 98 fL LAB HEMATOLOGY METHOD 09/20/2024 11:00 PM EDT [facility] MCH 30.9 26.0 - 32.0 pg LAB HEMATOLOGY METHOD 09/20/2024 11:00 PM EDT [facility] MCHC 33.1 30.7 - 35.5 g/dL LAB HEMATOLOGY METHOD 09/20/2024 11:00 PM EDT [facility] RDW 13.6 11.5 - 14.5 % LAB HEMATOLOGY METHOD 09/20/2024 11:00 PM EDT [facility] MPV 9.0 8.8 - 12.5 fL LAB HEMATOLOGY METHOD 09/20/2024 11:00 PM EDT [facility] nRBC 0.0 <=0.0 per 100 WBCs LAB HEMATOLOGY METHOD 09/20/2024 11:00 PM EDT [facility] Differential Type Automated LAB HEMATOLOGY METHOD 09/20/2024 11:00 PM EDT [facility] Neutrophils % 77 % LAB HEMATOLOGY METHOD 09/20/2024 11:00 PM EDT [facility] Lymphocytes % 13 % LAB HEMATOLOGY METHOD 09/20/2024 11:00 PM EDT [facility] Monocytes % 8 % LAB HEMATOLOGY METHOD 09/20/2024 11:00 PM EDT [facility] Eosinophils % 1 % LAB HEMATOLOGY METHOD 09/20/2024 11:00 PM EDT [facility] Basophils % 0 % LAB HEMATOLOGY METHOD 09/20/2024 11:00 PM EDT [facility] Immature Granulocytes % 1 % LAB HEMATOLOGY METHOD 09/20/2024 11:00 PM EDT [facility] Neutrophils Absolute 10.28(H) 1.60 - 6.10 10*3/uL LAB HEMATOLOGY METHOD 09/20/2024 11:00 PM EDT [facility] Lymphocytes Absolute 1.67 1.20 - 3.90 10*3/uL LAB HEMATOLOGY METHOD 09/20/2024 11:00 PM EDT [facility] Monocytes Absolute 1.12(H) 0.30 - 0.90 10*3/uL LAB HEMATOLOGY METHOD 09/20/2024 11:00 PM EDT [facility] Eosinophils Absolute 0.14 0.00 - 0.50 10*3/uL LAB HEMATOLOGY METHOD 09/20/2024 11:00 PM EDT [facility] Basophils Absolute 0.05 0.00 - 0.10 10*3/uL LAB HEMATOLOGY METHOD 09/20/2024 11:00 PM EDT [facility] Immature Granulocytes Absolute 0.12(H) 0.00 - 0.06 10*3/uL LAB HEMATOLOGY METHOD 09/20/2024 11:00 PM EDT [facility] Blood Venous blood specimen / Unknown Venipuncture / Unknown 09/20/2024 10:33 PM EDT 09/20/2024 10:42 PM EDT Narrative [facility] - 09/20/2024 11:00 PM EDT Therapeutic decision making should be based on absolute values, rather than percentages. us Giorgi Perkins MD LAB BLOOD ORDERABLES Final Result [facility] [address] [place] [address] * (ABNORMAL) CMP (09/20/2024 10:33 PM EDT) Glucose, Plasma 170(H) 74 - 99 mg/dL 09/20/2024 11:03 PM EDT [facility] BUN, Plasma 27(H) 8 - 23 mg/dL 09/20/2024 11:03 PM EDT [facility] Creatinine, Plasma 0.93 0.70 - 1.20 mg/dL 09/20/2024 11:03 PM EDT [facility] BUN/Creatinine Ratio 29 09/20/2024 11:03 PM EDT [facility] Sodium, Plasma 134(L) 136 - 145 mmol/L 09/20/2024 11:03 PM EDT [facility] Potassium, Plasma 5.0(H) 3.6 - 4.9 mmol/L 09/20/2024 11:03 PM EDT [facility] Chloride, Plasma 101 97 - 107 mmol/L 09/20/2024 11:03 PM EDT [facility] CO2, Plasma 22 22 - 29 mmol/L 09/20/2024 11:03 PM EDT [facility] Anion Gap 11 6 - 16 mmol/L 09/20/2024 11:03 PM EDT [facility] Total Calcium, Plasma 9.1 8.9 - 10.2 mg/dL 09/20/2024 11:03 PM EDT [facility] Total Protein 6.6 6.3 - 7.9 g/dL 09/20/2024 11:03 PM EDT [facility] Albumin, Plasma 3.9 3.5 - 5.2 g/dL 09/20/2024 11:03 PM EDT [facility] AST, Plasma 11 10 - 50 U/L 09/20/2024 11:03 PM EDT [facility] ALT, Plasma 16 10 - 50 U/L 09/20/2024 11:03 PM EDT [facility] Alkaline Phosphatase, Plasma 132(H) 40 - 115 U/L 09/20/2024 11:03 PM EDT [facility] Total Bilirubin, Plasma 0.6 0.2 - 1.1 mg/dL 09/20/2024 11:03 PM EDT [facility] eGFRcr 91.1 mL/min/1.7 3m*2 09/20/2024 11:03 PM EDT [facility] Comment:Reported eGFRcr in m L/min/1.73m2 is based the CKD-EPI 2020 equation that does not use a race coefficient. Blood Venous blood specimen / Unknown Venipuncture / Unknown 09/20/2024 10:33 PM EDT 09/20/2024 10:42 PM EDT us Giorgi Perkins MD LAB BLOOD ORDERABLES Final Result [facility] [address] [place] [address] documented in this encounter Visit Diagnoses Diagnosis [...] 0804 (Given - Provider: Melecio Vega RN) famotidine (Pepcid) tablet 20 mg 20 mg, Oral, 2 times daily, First dose on 09/22/24 at 0000, Until Discontinued, Routine 002 (Given - Provider: Cristiane Rivas RN)0804 (Given - Provider: Melecio Vega RN) heparin (porcine) injection 5,000 Units 5,000 Units, Subcutaneous, Every 8 hours scheduled, First dose on 09/21/24 at 0150, Until Discontinued, Routine 022 (Given - Provider: Ana Maria Corea)0611 (Given [...] Cristiane Rivas RN - Comment: given after slot shift manager assesment) lisinopril tablet 10 mg 10 mg, [...] 4 mg, Oral, Once, 1 dose, On 09/20/24 at 2230, STAT 2232 (Given - Provider: [...] Cristiane Rivas RN)1226 (Given - Provider: Melecio Vega, CHRISTIAN) tamsulosin (Flomax) 24 hr capsule 0.4 mg 0.4 mg, Oral, Daily with dinner, First dose on 09/21/24 at 1800, Until Discontinued, Routine 1715 (Given - Provider: Reid Villalpando RN) 1800 (Canceled Entry - Provider: Automatic Discharge [...] at this time)0943 (Restarted - Provider: Reid Villalpando, RN)1502 (Stopped - Provider: Reid Villalpando RN [...] documented as of this encounter Care Teams [employer] Relationship Specialty Start Date End Date Asad Victor MD [address] [place] [address] PCP - General 10/07/22 documented as of this encounter
--- OUTSIDE RECORDS SUMMARY | 2024-10-11 10:15 | XMS_ITS | Encounter Summary ---
Author Organization [facility] Address [address] [place] [address] Care Team Providers Care Auto Body Mechanic Name Role Phone Asad Victor MD Primary Care Provider + [phone] Encounter Details Date Type Department Care Team (Latest Contact Info) Description 10/11/2024 10:15 AM EDT Pre-Admission Testing [facility] Pre-op Clinic [address], [address]st [place] [address] Preop testing (Primary Dx) Anesthesia Record Procedure [...] Hand; Site Prep: Chlorhexidine ; Local Anesth: [place]; Technique: Anatomical landmarks; Inserted by: CHRISTIAN Acuna; [...] No change to dentition. ; Placed by: OPERATIONS SYSTEMS SPECIALIST; Removal Date: 10/17/24; Removal Time: 1311 10/17/24 [...] G; Orientation: Right; Location: Axillary; Inserted by: ISH; Securement: Sutured; Patient Tolerance: Tolerated well; Removal Date: 10/17/24; Removal Time: 14210/17/24824 by Jenna Lopez CRNA 10/17/241424 by Keisha Waller RN Peripheral IV Placement Date: 09/25 07/19; Placement Time: 851 (created via procedure documentation); Orientation: Left; Location: Forearm; Local Anesth: None; Technique: Ultrasound guidance; Inserted by: Maria Fernanda Mccallum MD; Insertion Attempts: 1; Removal Date: 10/19/24; Removal Time: 112910/17/24 08 by Maria Fernanda Mccallum MD 10/19/24 113 by Keyla Chow documented in this encounter Social History Tobacco Use Types Packs/Day Years Used Date Smoking Tobacco: Former Cigarettes Passive Smoke Exposure: Past Smokeless Tobacco: Never Tobacco Cessation:Counseling Given: Not Answered Comments:Smoked 1-2 PPD for at least 30 years. 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 S/P intravascular lithotripsy of left common and external iliac artery with 2 continuous balloon mounted bare metal stents 09/12/24 on Xarelto and ASA + WILHELM occ, low energy for > year - had work-up recently in [place] (will get records) + peripheral edema LLE [...] technique(s) discussed with the patient/family: general Comment: GLENDA-Dawit phone screen GLENDA Garcia [1] Past Medical [...] Right CARDIAC PACEMAKER PLACEMENT CAROTID ENDARTERECTOMY N/A 2016 Endarterectomy Carotid Artery from [facility]) CORONARY ANGIOPLASTY Left Coronary Angiography With Concomitant Left Heart Catheterization from [facility]) CORONARY ARTERY BYPASS GRAFT N/A 2018 3V ELBOW SURGERY Right OTHER SURGICAL HISTORY N/A Reported Prior Surgical / Procedural History from [facility] [5] No Known Allergies [6] Current Outpatient [...] card, photo ID, along with power of corporate associate attorney, guardianship or advanced directives if [...] Info) Description 11/26/2024 2:00 PM EDT Appointment [facility] Lab [address] [facility] [address] [place] [address] 11/26/2024 2:30 PM EDT Appointment [facility] [address] [facility] [address] [place] [address] 11/26/2024 3:20 PM EDT Office Visit [facility] [address] [place] [address] Elisabet Schuster PA [address] [facility] [address] [place] [address] documented as of this encounter Goals Goal [...] 1960 Age: 64 y.o. Patient has a Washing Machine Mechanic: Berger CIRCULAR SAW EDGE FUSER-PM Remaining battery longevity adequate. Lead integrity test [...] recommendations. Supporting reports can be found in [employer] file. Emelina DOSHI CV IMPLANTABLE CARDIAC DEV [...] documented as of this encounter Care Teams Auto Body Mechanic Relationship Specialty Start Date End Date Asad Victor MD [address] [place] [address] PCP - General 10/07/22 documented as of this encounter
--- OUTSIDE RECORDS SUMMARY | 2024-10-16 14:45 | XMS_ITS | Encounter Summary ---
Author Organization Healthcare Address [address] [place] [address] Care Team Providers Care Gem Setter Name Role Phone Asad Victor MD Primary Care Provider + [phone] Encounter Details Date Type Department Care Team (Latest Contact Info) Description 10/16/2024 2:45 PM EDT - 10/16/2024 11:59 PM EDT Hospital Encounter Cardiac Imaging [address] [place] [address] Discharge Disposition: Home or Self Care Social [...] drink first t dino in the morning (EYE-TRAY SETTER) to steady your nerves or to get [...] by mouth 2 times a day. 08/29/2016 ondansetron ODT (Zofran-ODT) 4 MG disintegrating tablet Dissolve 1 tablet on the tongue every 6 hours as needed for nausea or vomiting. 20 tablet 10/19/2024 oxyCODONE (Roxicodone) 5 MG immediate release tablet Take 1 tablet by mouth every 4 hours as needed for moderate pain or severe pain for up to 15 doses. 15 tablet 10/19/2024 pravastatin (Pravachol) 40 MG tablet Take 1 tablet by mouth nightly. 03/28/2019 rivaroxaban (Xarelto) 20 MG tablet Take 1 tablet by mouth 1 time each day with dinner. Take with food. 30 tablet 3 10/19/2024 5 rOPINIRole (Requip) 1 MG tablet Take 2 [...] 1 tablet by mouth daily. 01/31/2019 5 rOPINIRole (Requip) 1 MG tablet Take 1 tablet by mouth 2 times a day. 5 Xarelto 2.5 MG tablet Take 1 tablet by mouth 2 times a day. 09/20/2022 documented as of this encounter Plan of Treatment Upcoming Encounters Date Type Department Care Team (Late st Contact Info) Description 11/26/2024 2:00 PM EDT Appointment [facility] Lab [address] [place] [address] 11/26/2024 2:30 PM EDT Appointment [facility] [address] [place] [address] 11/26/2024 3:20 PM EDT Office Visit [facility] [address] [place] [address] Elisabet Schuster PA [address] [facility] [address] [place] [address] documented as of this encounter Goals Goal [...] Modality Other Narrative 10/17/2024 9:50 AM EDT [facility]: Pre-operative CIED Report Assessment and Sara-Procedural Reommendations: Name: Mono Bobby Date: 10/17/2024 : 1960 Age: 64 y.o. Patient has a Sink Maker: Berger HOUSING DIRECTOR-PM Remaining battery longevity adequate. Lead integrity test [...] can be found in EPIC media file. 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
--- OUTSIDE RECORDS SUMMARY | 2024-10-17 06:21 | XMS_ITS | Encounter Summary ---
Author Organization [facility] Address [address] [id number] Care Team Providers Care Manager Transfusion Name Role Phone Asad Victor MD Primary Care Provider [phone] Reason for Referral * Imaging (Routine) - Pending Review Specialty Diagnoses / Procedures Referred By Susan bull Referred To Contact Cardiology Diagnoses Critical limb ischemia of left lower extremity Pseudoaneurysm of left femoral artery (CMS/HCC) Procedures VAS US Arterial Duplex Lower Extremity Unilateral Left Terrell Gautam MD [address] [address] Phone: tel: fax: Referral ID Status Reason Start Date Expiration Date Visits Requested Visits Authorized [id number] Pending Review Perform Procedure 10/19/2024 04/20/2026 1 1 * Imaging (Routine) - Pending Review Specialty Diagnoses / Procedures Referred By Susan t Referred To Contact Cardiology Diagnoses Critical limb ischemia of left lower extremity Pseudoaneurysm of left femoral artery (CMS/HCC) Procedures VAS Ankle Brachial Index - Segmental Terrell Gautam MD [address] [facility] [address] [place] [address] Phone: tel: fax: Referral ID Status Reason Start Date Expiration Date Visits Requested Visits Authorized [id number] Pending Review Perform Procedure 10/19/2024 04/20/2026 1 1 * Consultation (Routine) - Authorized Specialty Diagnoses / Procedures Referred By Contact Referred To Contact Vascular Surgery / [facility] Diagnoses Critical limb ischemia of left lower extremity Pseudoaneurysm of left femoral artery (CMS/HCC) Terrell Gautam MD [address] [place] [address] Phone: tel:[phone] fax:[phone] [facility] [address] [place] [address] 5th Floor [address] [place] [address] Phone: tel: fax: Referral ID Status Reason Start Date Expiration Date Visits Requested Visits Authorized [id number] Authorized Specialty Services Required 10/19/2024 04/20/2026 [address] Gautam, with SIL, arterial duplex Reason for Visit * Auth/Cert (Routine) Specialty Diagnoses / Procedures Referred By Contac t Referred To Contact Diagnoses Critical limb ischemia of left lower extremity Critical limb ischemia of left lower extremity [I70.222] Procedures ND VEIN BYPASS GRAFT,FEM-POP CREATION, BYPASS, ARTERIAL, FEMORAL TO POPLITEAL Terrell Gautam MD [address] [place] [address] Phone: tel: fax: [facility] A OPERATING ROOM [address] [place] [address] Phone: tel: Referral ID Status Reason Start Date Expiration Date Visits Re quested Visits Authorized [id number] 1 1 Encounter Details Date Type Department Care Team (Latest Contact Info) Description 10/17/2024 6:21 AM EDT - 10/19/2024 12:39 PM EDT Hospital Encounter [facility] H Inpatient [address] [place] [address] Terrell Gautam MD [address] [place] [address] Pseudoaneurysm of left femoral artery (CMS/HCC) [...] time in the past 12 m [facility], were you homeless or living in a retirement (including now)? No 10/18/2024 CAGE ASSESSMENT Answer [...] drink first t dino in the morning (EYE-DRIER OPERATOR) to steady your nerves or to get rid of a hangover? 0 10/18/2021 CAGE Questionnaire Score 0 022 Utilities Answer Date Recorded In the past 12 months has th e [employer], gas, oil, or water [employer] threatened to shut off services in your [...] for 10 days. 60 tablet 10/19/2024 5 documented as of this [...] provided Taken 10/17/20242107 by Jourdan Grimes II, security engineer Review/Management: medications reviewed Problem: Skin Injury Risk [...] Ongoing, Progressing Intervention: Promote Activity and Functional Person Flowsheets (Taken 10/19/2024 1048) Self-Care Promotion: BADL personal objects within reach meal set-up provided * Yuni Ramires - Keyla Chow - 10/19/2024 11:45 AM EDT Images from the original note were not included. [id number] After Peripheral Artery Bypass Surgery: In the [...] home. Last Reviewed Date: 2023 00:00:00 ?? [id number] [employer]. All rights reserved. This information is not intended as a substitute for professional medical care. Always follow your healthcare professional's instructions. * Progress Notes - Emelina Friend - 10/19/2024 11:44 AM EDT Case Management Adult Progress Note Bev Bobby 64 y.o. male CSN: [id number] Admission: 10/17/2024 6:21 AM Primary Problem: Critical [...] if any other needs arise. Emelina Friend [employer], PANTOMIMIST Social Work Case Management * Keyla Reyes - 10/19/2024 11:44 AM EDT Images from the original note were not included. [id number] Peripheral Artery Disease (PAD) Peripheral artery disease [...] cause. Last Reviewed Date: 2024 00:00:00 ?? [id number] [employer]. All rights reserved. This information is not intended as a substitute for professional medical care. Always follow your healthcare professional's instructions. * Yuni DiorNAVYA - Keyla Chwo - 10/19/2024 11:44 AM EDT Images from the original note were not included. [id number] Leg Artery Emergencies: Critical Limb Ischemia (CLI) [...] appointments. Last Reviewed Date: 2023 00:00:00 ?? [id number] [employer]. All rights reserved. This information is not intended as a substitute for professional medical care. Always follow your healthcare professional's instructions. * Discharge Summary - Dandy Baltazar MD - 10/19/2024 11:31 AM EDT Hospitalization Admit Date/Time: 10/17/2024 6:21 AM Admitting Attending: Terrell Gautam Discharge Date: 10/19/24 Discharge Attending Physician: Nirmal Cueto MD PCP name and Address: Asad Victor MD (Inactive) [address] [place] [address] / [facility] [address] Referring provider name and address: Timothy Marques PA [address] [place] [address] Chief Concern, Brief History of Present Illness, and Hospital Course Bev Bobby is an 64 y.o. 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 He [...] Your Medications These medications were sent to [facility] [place], [place] - [address] [facility] [address] acetaminophen 500 MG tablet clopidogrel 75 MG [...] of water. Outpatient Follow-Up Follow up with [facility] Associated diagnoses: Balloon like swelling in an artery of the leg Critical limb ischemia of left lower extremity [address] 5[address] Floor [address] [facility] [address] Test Results Pending At Discharge Pending Labs [...] Baltazar MD - 10/19/2024 11:27 AM EDT eBv Bobby is an 64 y.o. 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 He [...] provided Taken 10/17/20242107 by Jourdan Grimes II security engineer Review/Management: medications reviewed Problem: Skin Injury Risk [...] Ongoing, Progressing Intervention: Promote Activity and Functional Person Flowsheets (Taken 10/19/2024 1048) Self-Care Promotion: BADL [...] evaluation. PARTICIPANTS IN CARE Visitors Present No Mink Slicer (if applicable) PRESENTATION Oxygen Oxygen Therapy: None [...] Level of Mobility Ambulatory- household only Mobility Person Independent gait with device (rollator) History of [...] numbness in rodney) BED MOBILITY Level of Person Physical/Non- physical Assist Adaptive Equipment Utilized Rolling/ Turning Scooting/ Bridging Modified independence (anteriorly to EOB) Bed rails Supine to Sit Modified Person (to the right) (HOB flat) Bed rails Sit to Supine Interventions HOB flat to simulate home environment TRANSFERS Level of Person Physical/Non- physical Assist Adaptive Equipment Utilized Sit [...] stable surfaces during transitions. AMBULATION Level of Person Distance Adaptive Equipment Utilized Ambulation Standby assist, [...] Posture: Forward head, Rounded shoulders Level of Person Balance Support Interventions Static Sit Independent Right [...] RW) STANDARDIZED ASSESSMENTS Standardized Assessments Standardized Assessments: AMPA 6-Clicks Mobility Assessment AMPA 6-Clicks Mobility Assessment Difficulty patient has turning [...] 3-5 steps with a railing?: A little [facility] 6-Clicks Mobility Assessment Total : 22 [...] AM. * Progress Notes - Kassie Ovalle - 10/19/2024 9:07 AM EDT Occupational Therapy [...] evaluation/session. Participants in Care Family/Caregiver Present: No Mink Slicer: Not Applicable Presentation Oxygen Therapy: None (Room [...] Level of Mobility: Ambulatory- household only Mobility Person: Independent gait with device (rollator) History of [...] Mobility Bed Mobility Exam: Scooting/Bridging Level of Person: Modified independence (anteriorly to EOB) Assistive Device: Bed rails Bed Mobility Exam: Supine to Sit Level of Person: Modified Person (to the right) Physical/Nonphysical Assist: (HOB flat) Assistive Device: Bed rails Transfers Transfer Exam: Sit to stand Level of Person: Stand-by assist Physical/Nonphysical Assist: Supervision, Verbal Cues, Minimal cues Assistive Device: Walker, rolling Transfer Exam: Stand to Sit Level of Person: Stand-by assist Physical/Nonphysical Assist: Supervision, Verbal Cues, [...] toileting at this time. Standardized Assessments [facility] 6-Click Daily Activities Help from Other: Don/Doff Regular Lower Body Clothings: None Help From Other: Bathing: Little Help From Other: Toileting: None Help From Other: Don/Doff Upper Body Clothings: None Help From Other: Grooming: None Help From Other: Eating Meals: None [facility] 6 Click - Daily Activities Score: 23/24 [facility] Scoring Interpretation: Scores greater than 20.5 [...] Outcome: Ongoing, Progressing * Progress Notes - RemingtonMariia Maya - 10/18/2024 11:19 AM EDT Case Management Adult Initial Progress Note Bev Bobby 64 y.o. male CSN: [id number] Admission: 10/17/2024 6:21 AM Primary Problem: Critical limb ischemia of left lower extremity Emergency Operator reviewed chart and spoke with patient to complete this Initial Case Management Assessment. PCP: Asad Victor MD (Inactive) - Dr. Palomo Preferred pharmacy is [facility] Emergency Contact: Extended Emergency Contact Information Primary Emergency Contact: Patti Hill Relation: Sister Mink Slicer needed? No Insurance: Primary Visit Coverage Payer Plan Sponsor Code Group Number Group Name [facility] MEDICARE [facility] MEDICARE REPLACEMENT [id number] Primary Visit Coverage Subscriber Subscriber ID Subscriber Name Subscriber [facility] Subscriber Address [id number] BEV BOBBY [id number] [place] [address] Secondary Visit Coverage Payer Plan Sponsor Code Group Number Group Name [facility] MEDICAID [facility] Secondary Visit Coverage Subscriber Subscriber ID Subscriber Name Subscriber [facility] Subscriber Address [id number] BEV BOBBY [id number] [place] [address] Patient information: Primary Caregiver: Self Daily Living Activities: Functional Status: Independent Living Arrangements: Alone Type of Residence: Private residence, Single Level [address] [place] [address] Current DME: Equipment Currently Used at Home: walker, rollator Income Information: Income Source: Retired Income/Expense Information: Income meets expenses Current Resources Utilized: Food [place] Housing Circumstances-Z Codes: Housing Circumstances (select all [...] Dialysis Services: None. Living Will/Advance Directive/Power of Showroom Sales Assistant /Guardian: Denied. Additional Comments: Patient is not medically ready for discharge. SW will continue to follow. Mariia Macedo PANTOMIMIST * Care Plan - Emilia Alonso RN [...] from the original note were not included. [facility] Department of Surgery Division of Vascular [...] - 10/17/24 0659 10/17/24 07 - 10/17/24 18510/17/24 190 - 10/18/24 0659 10/18/24 07 - 10/18/24 07 Requested LDAs do not have output data [...] Prevention: activity supervised assistive device/personal items within [employer] fall prevention program maintained lighting adjusted clutter-free [...] Agree with above assessment and evaluation from resident/RETAIL WIRELESS SALES CONSULTANT. * Op Note - Terrell Gautam MD - 10/17/2024 8:52 AM EDT Operative Note Date: 10/17/24 Location: [facility] Name: Bev Bobby, : 1960, Diagnoses: Pre-op Diagnosis Critical limb ischemia of left lower extremity Common femoral artery pseudoaneurysm Post-op Diagnosis Critical limb ischemia of left lower extremity Common femoral artery pseudoaneurysm Procedure(s): Left common/superficial/profunda femoral thromboendarterectomy with bovine patch repair Left external iliac artery/PRODUCTION QUALITY ANALYST stent Attending Surgeon(s): * Terrell Gautam - Primary Manager Benefit(s): * Luna Beckett MD - Resident - [...] Collection Port Covered with Alcohol Cap Yes 10/18/24 08 CAUTI: Urinary Catheter Necessity Yes, meets criteria 10/17/24 190 CAUTI: Urinary Catheter Necessity Reasons Recent surgery contiguous with urinary tract/SPEECH CLINICIAN/colorectal 10/17/24 1900 Output (mL) 50 mL 10/18/24 0800 Implants Type Name Action Serial No. VASCUGUARD 8 X 8 - [id number] Implanted STENT ENDOPROSTHESIS VIABAHN 9FR [id number] - [id number] Implanted [id number] Specimen: Specimens ID Source Frozen? 1 Other [...] incision was made in the groin and dissection was carried down using Bovie electrocautery to the fascia layers. We then carefully dissected around the pseudoaneurysm sac was found to be enlarged and fibrotic so we extended our incision cephaladand partially divided the inguinal ligament to allow exposure of the common femoral artery beneath the inguinal ligament. The bridging vein was identified and ligated between ties. We then circumferentially dissected around the common femoral artery and placed a vessel loop for retraction. We then carried our dissection caudad until we entered the pseudoaneurysm sac and broke apart all previous th rombus and this allowed for us to appropriately identify the remainder of the common femoral arteryand its bifurcation. We then placed vessel loops for proximal and distal control. We then proceeded with lgrem-krk-mhzo exposure of the popliteal artery. A medial [...] balloon dilated thestent with a 9 mm [place]. We closed the arteriotomy with a single [...] 10/17/2024 8:52 AM EDT Date: 10/17/24 Location: [facility] Name: Bev Bobby, : 1960, Diagnoses: Pre-op Diagnosis Critical limb ischemia of left lower extremity Common femoral artery pseudoaneurysm Post-op Diagnosis Critical limb ischemia of left lower extremity Common femoral artery pseudoaneurysm Procedure(s): Left common/superficial/profunda femoral thromboendarterectomy with bovine patch repair Left external iliac artery/PRODUCTION QUALITY ANALYST stent Attending Surgeon(s): * Terrell Gautam - Primary Manager Benefit(s): * Luna Beckett MD - Resident - Assisting * Dandy Baltazar MD - Fellow Anesthesia: General ASA: III Blood Administration: Blood Product Administration History None Estimated Blood Loss: 300 mL Drains: Urethral Catheter Temperature probe 16 Fr. (Active) Implants Type Name Action Serial No. VASCUGUARD 8 X 8 - [id number] Implanted STENT ENDOPROSTHESIS VIABAHN 9FR [id number] - [id number] Implanted [id number] Specimen: Specimens ID Source Frozen? 1 Other [...] issues. 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 He previouslyunderwent thrombin injection. He reports pain in his calves. He presents today for scheduled left lower extremity femoral to oobxc-xmq-[id number] popliteal bypass. Planned likely use PTFE. He [...] 16. Results Review {Vanishing Link Review Results :[id number] I have reviewed the latest lab and imaging results. Assessment & Plan Critical limb ischemia of left lower extremity Proceed with scheduled surgery left lower extremity femoral to sjnuo-hlo-hdfg popliteal artery bypass graft. Extensive discussion had with patient regarding risks and benefits of procedure. Informed consent obtained and located in patient's chart. Medically Ready for Discharge:Anticipated in 2-4 Days [1] Current Facility-Administered Medications Medication Dose Route Frequency Provider Last Rate Last Admin ceFAZolin (Ancef) injection 2 g 2 g Intravenous Once Jerry Holcobm MD Povidone-Iodine 5 % swab solution 1 [...] Info) Description 11/26/2024 2:00 PM EDT Appointment [facility] [address] [place] [address] 11/26/2024 2:30 PM EDT Appointment [facility] [address] [place] [address] 11/26/2024 3:20 PM EDT Office Visit [facility] [address] [place] [address] Elisabet Schuster PA [address] [facility] [address] [place] [address] Pending Results Name Type Priority Associated Diagnoses [...] Comment 10/19/2024 11:42 AM EDT [facility]ALTH[facility]ARE LAB Organ Assembler ID Job Andrew 10/20/19 11:42 AM EDT HEALTHCARE LAB Device ID [id number] 10/19/2024 11:42 AM EDT HEALTHCARE LAB Specimen Type POC Capillary 10/19/2024 11:42 AM EDT [facility] Blood Capillary blood specimen / Unknown 10/19/2024 11:40 AM EDT 10/19/2024 11:42 AM EDT Terrell Gautam MD LAB POINT OF CARE TE ST DOCKED DEVICE UNSOLICITED RESULTS Final Result Performing Organization Address City/State/[facility] Co de Phone Number HEALTH[facility]ARE LAB [address] [place] [address] * (ABNORMAL) Protime-INR (10/19/2024 8:25 AM EDT) Pathologist [facility] Prothrombin Time 17.5(H) 12.0 - 14.3 sec LAB COAGULATION METHOD 10/19/2024 9:25 AM EDT [facility] INR 1.4(H) 0.9 - 1.1 LAB COAGULATION METHOD 10/19/2024 9:25 AM EDT [facility] Blood Venous blood specimen / Unknown Venipuncture / Unknown 10/19/2024 8:25 AM EDT 10/19/2024 8:43 AM EDT Narrative [facility] - 10/19/2024 9:25 AM EDT OPTIMAL INR RANGES FOR PATIENT ON ORAL ANTICOAGULANT THERAPY Prevention of venous thromboembolism INR 2.0 to 3.0 In patients with heart disease: Atrial fibrillation INR 2.0 to 3.0 Valvular heart disease INR 2.0 to 3.0 Tissue heart valves INR 2.0 to 3.0 Mechanical prosthetic valves INR 2.5 to 3.5 Prevention of recurrent SD INR 2.5 to 3.5 us Nirmal Cueto MD LAB BLOOD ORDERABLES Final Result Performing Organization Address [facility] Co de Phone Number [facility] [address] [place] [address] * (ABNORMAL) Phosphorus (10/19/2024 8:25 AM EDT) Phosphorus, Plasma 2.2(L) 2.5 - 4.5 mg/dL 10/19/2024 9:12 AM EDT [facility] Blood Venous blood specimen / Unknown Venipuncture / Unknown 10/19/2024 8:25 AM EDT 10/19/2024 8:43 AM EDT us Nirmal Cueto MD LAB BLOOD ORDERABLES Final Result Performing Organization Address [facility] Phone Number [facility] [address] [place] [address] * Magnesium (10/19/2024 8:25 AM EDT) Magnesium, Plasma 2.1 1.9 - 2.4 mg/dL 10/19/2024 9:12 AM EDT [facility] Blood Venous blood specimen / Unknown Venipuncture / Unknown 10/19/2024 8:25 AM EDT 10/19/2024 8:43 AM EDT us Nirmal Cueto MD LAB BLOOD ORDERABLES Final Result Performing Organization Address City/[facility] Co de Phone Number [facility] [address] [place] [address] * (ABNORMAL) Basic metabolic panel (10/19/2024 8:25 AM EDT) Glucose, Plasma 191(H) 74 - 99 mg/dL 10/19/2024 9:12 AM EDT [facility] BUN, Plasma 18 8 - 23 mg/dL 10/19/2024 9:12 AM EDT [facility] Creatinine, Plasma 0.76 0.70 - 1.20 mg/dL 10/19/2024 9:12 AM EDT [facility] BUN/Creatinine Ratio 24 10/19/2024 9:12 AM EDT [facility] Sodium, Plasma 135(L) 136 - 145 mmol/L 10/19/2024 9:12 AM EDT [facility] Potassium, Plasma 4.1 3.6 - 4.9 mmol/L 10/19/2024 9:12 AM EDT [facility] Chloride, Plasma 104 97 - 107 mmol/L 10/19/2024 9:12 AM EDT [facility] CO2, Plasma 22 22 - 29 mmol/L 10/19/2024 9:12 AM EDT [facility] Anion Gap 9 6 - 16 mmol/L 10/19/2024 9:12 AM EDT [facility] Total Calcium, Plasma 8.4(L) 8.9 - 10.2 mg/dL 10/19/2024 9:12 AM EDT [facility] eGFRcr 99.7 mL/min/1.7 3m*2 10/19/2024 9:12 AM EDT [facility] Comment:Reported eGFRcr in m L/min/1.73m2 is based the CKD-EPI 2020 equation that does not use a race coefficient. Blood Venous blood specimen / Unknown Venipuncture / Unknown 10/19/2024 8:25 AM EDT 10/19/2024 8:43 AM EDT us Nirmal Cueto MD LAB BLOOD ORDERABLES Final Result [facility] [address] [place] [address] * (ABNORMAL) CBC W/O Differential (10/19/2024 8:25 AM EDT) WBC Count 14.10(H) 3.70 - 10.30 10*3/uL LAB HEMATOLOGY METHOD 10/19/2024 8:52 AM EDT [facility] RBC Count 2.61(L) 4.60 - 6.10 10*6/uL LAB HEMATOLOGY METHOD 10/19/2024 8:52 AM EDT [facility] HGB 8.0(L) 13.7 - 17.5 g/dL LAB HEMATOLOGY METHOD 10/19/2024 8:52 AM EDT [facility] HCT 24.3(L) 40.0 - 51.0 % LAB HEMATOLOGY METHOD 10/19/2024 8:52 AM EDT [facility] Platelet Count 318 155 - 369 10*3/uL LAB HEMATOLOGY METHOD 10/19/2024 8:52 AM EDT [facility] MCV 93 79 - 98 fL LAB HEMATOLOGY METHOD 10/19/2024 8:52 AM EDT [facility] MCH 30.7 26.0 - 32.0 pg LAB HEMATOLOGY METHOD 10/19/2024 8:52 AM EDT [facility] MCHC 32.9 30.7 - 35.5 g/dL LAB HEMATOLOGY METHOD 10/19/2024 8:52 AM EDT [facility] RDW 13.4 11.5 - 14.5 % LAB HEMATOLOGY METHOD 10/19/2024 8:52 AM EDT [facility] MPV 9.6 8.8 - 12.5 fL LAB HEMATOLOGY METHOD 10/19/2024 8:52 AM EDT [facility] nRBC 0.0 <=0.0 per 100 WBCs LAB HEMATOLOGY METHOD 10/19/2024 8:52 AM EDT [facility] Blood Venous blood specimen / Unknown Venipuncture / Unknown 10/19/2024 8:25 AM EDT 10/19/2024 8:44 AM EDT Nirmal Cueto MD LAB BLOOD ORDERABLES Final Result [facility] [address] [place] [address] * (ABNORMAL) POCT glucose meter (10/19/2024 7:35 AM EDT) [facility] POCT Glucose 187(H) 74 - 99 mg/dL 10/19/2024 7:37 AM EDT [facility] Comment:Accuracy of a glucos e result [...] 10/19/2024 7:37 AM EDT [facility] Organ Assembler ID Job Andrew 10/20/19 7:37 AM EDT [facility] Device ID [id number] 10/19/2024 7:37 AM EDT [facility] Specimen Type POC Capillary 10/19/2024 7:37 AM EDT [facility] Blood Capillary blood specimen / Unknown 10/19/2024 7:35 AM EDT 10/19/2024 7:37 AM EDT us Terrell Gautam MD LAB POINT OF CARE TE ST DOCKED DEVICE UNSOLICITED RESULTS Final Result Performing Organization Address [facility] Co de Phone Number [facility] [address] [place] [address] * (ABNORMAL) POCT glucose meter (10/18/2024 7:22 [...] 10/18/2024 7:24 PM EDT [facility] Organ Assembler ID Mahesh Aldana 10/18/2024 7:24 PM EDT [facility] Device ID [id number] 10/18/2024 7:24 PM EDT [facility] Specimen Type POC Capillary 10/18/2024 7:24 PM EDT [facility] Blood Capillary blood specimen / Unknown 10/18/2024 7:22 PM EDT 10/18/2024 7:24 PM EDT us Terrell Gautam MD LAB POINT OF CARE TE ST DOCKED DEVICE UNSOLICITED RESULTS Final Result Performing Organization Address City/[facility]/ZIP Co de Phone Number [facility] [address] [place] [address] * (ABNORMAL) POCT glucose meter (10/18/2024 6:07 PM EDT) [facility] POCT Glucose 167(H) 74 - 99 mg/dL 10/18/2024 6:09 PM EDT [facility]ALTHCARE LAB Comment:Accuracy of a [...] Comment 10/18/2024 6:09 PM EDT HEALTHCARE LAB Organ Assembler ID David Parks 10/18/2024 6:09 PM EDT HEALTHCARE LAB Device ID [id number] 10/18/2024 6:09 PM EDT HEALTHCARE LAB Specimen Type POC Capillary 10/18/2024 6:09 PM EDT [facility] Blood Capillary blood specimen / Unknown 10/18/2024 6:07 PM EDT 10/18/2024 6:09 PM EDT us Terrell Gautam MD LAB POINT OF CARE TE ST DOCKED DEVICE UNSOLICITED RESULTS Final Result [facility] [address] [place] [address] * (ABNORMAL) POCT glucose meter (10/18/2024 11:56 AM EDT) [facility] POCT Glucose 233(H) 74 - 99 mg/dL [...] Comment 10/21/2024 7:42 AM EDT HEALTHCARE LAB Organ Assembler ID Venessa Marcano 10/21/2024 7:42 AM EDT HEALTHCARE LAB Device ID [id number] 10/21/2024 7:42 AM EDT HEALTHCARE LAB Specimen Type POC Capillary 10/21/2024 7:42 AM EDT HEALTHCARE LAB Blood Capillary blood specimen / Unknown 10/18/2024 11:56 AM EDT 10/21/2024 7:42 AM EDT Terrell Gautam MD LAB POINT OF CARE TE ST DOCKED DEVICE UNSOLICITED RESULTS Final Result Performing Organization Address City/[facility] Co de Phone Number [facility] [address] [place] [address] * (ABNORMAL) POCT glucose meter (10/18/2024 9:24 [...] Comment 10/21/2024 7:42 AM EDT HEALTHCARE LAB Organ Assembler ID Emilia Alonso 7:42 AM EDT HEALTHCARE LAB Device ID [id number] 10/21/2024 7:42 AM EDT HEALTHCARE LAB Specimen Type POC Venous 10/21/2024 7:42 AM EDT HEALTHCARE LAB Blood Venous blood specimen / Unknown 10/18/2024 9:24 AM EDT 10/21/2024 7:42 AM EDT us Terrell Gautam MD LAB POINT OF CARE TE ST DOCKED DEVICE UNSOLICITED RESULTS Final Result Performing Organization Address City/[facility] Co de Phone Number [facility] [address] [place] [address] * (ABNORMAL) POCT glucose meter (10/18/2024 7:36 [...] Comment 10/18/2024 7:38 AM EDT HEALTHCARE LAB Organ Assembler ID Kizzy Godfrey 025 7:38 AM EDT HEALTHCARE LAB Device ID [id number] 10/18/2024 7:38 AM EDT HEALTHCARE LAB Specimen Type POC Capillary 10/18/2024 7:38 AM EDT [facility] Blood Capillary blood specimen / Unknown 10/18/2024 7:36 AM EDT 10/18/2024 7:38 AM EDT us Terrell Gautam MD LAB POINT OF CARE TE ST DOCKED DEVICE UNSOLICITED RESULTS Final Result Performing Organization Address City/State/[facility] Co de Phone Number [facility] LAB [address] [place] [address] * (ABNORMAL) CBC (10/18/2024 2:09 AM EDT) WBC Count 16.71(H) 3.70 - 10.30 10*3/uL LAB HEMATOLOGY METHOD 10/18/2024 2:33 AM EDT [facility] RBC Count 2.78(L) 4.60 - 6.10 10*6/uL LAB HEMATOLOGY METHOD 10/18/2024 2:33 AM EDT [facility] HGB 8.5(L) 13.7 - 17.5 g/dL LAB HEMATOLOGY METHOD 10/18/2024 2:33 AM EDT [facility] HCT 25.7(L) 40.0 - 51.0 % LAB HEMATOLOGY METHOD 10/18/2024 2:33 AM EDT [facility] Platelet Count 324 155 - 369 10*3/uL LAB HEMATOLOGY METHOD 10/18/2024 2:33 AM EDT [facility] MCV 92 79 - 98 fL LAB HEMATOLOGY METHOD 10/18/2024 2:33 AM EDT [facility] MCH 30.6 26.0 - 32.0 pg LAB HEMATOLOGY METHOD 10/18/2024 2:33 AM EDT [facility] MCHC 33.1 30.7 - 35.5 g/dL LAB HEMATOLOGY METHOD 10/18/2024 2:33 AM EDT [facility] RDW 13.3 11.5 - 14.5 % LAB HEMATOLOGY METHOD 10/18/2024 2:33 AM EDT [facility] MPV 9.4 8.8 - 12.5 fL LAB HEMATOLOGY METHOD 10/18/2024 2:33 AM EDT [facility] nRBC 0.0 <=0.0 per 100 WBCs LAB HEMATOLOGY METHOD 10/18/2024 2:33 AM EDT [facility] Blood Venous blood specimen / Unknown Venipuncture / Unknown 10/18/2024 2:09 AM EDT 10/18/2024 2:25 AM EDT Nirmal Cueto MD LAB BLOOD ORDERABLES Final Result [facility] [address] [place] [address] * (ABNORMAL) Basic metabolic panel (10/18/2024 2:09 AM EDT) Glucose, Plasma 206(H) 74 - 99 mg/dL 10/18/2024 2:53 AM EDT [facility] BUN, Plasma 24(H) 8 - 23 mg/dL 10/18/2024 2:53 AM EDT [facility] Creatinine, Plasma 1.17 0.70 - 1.20 mg/dL 10/18/2024 2:53 AM EDT [facility] BUN/Creatinine Ratio 21 10/18/2024 2:53 AM EDT [facility] Sodium, Plasma 136 136 - 145 mmol/L 10/18/2024 2:53 AM EDT [facility] Potassium, Plasma 4.8 3.6 - 4.9 mmol/L 10/18/2024 2:53 AM EDT [facility] Chloride, Plasma 104 97 - 107 mmol/L 10/18/2024 2:53 AM EDT [facility] CO2, Plasma 22 22 - 29 mmol/L 10/18/2024 2:53 AM EDT [facility] Anion Gap 10 6 - 16 mmol/L 10/18/2024 2:53 AM EDT [facility] Total Calcium, Plasma 8.5(L) 8.9 - 10.2 mg/dL 10/18/2024 2:53 AM EDT [facility] eGFRcr 69.2 mL/min/1.7 3m*2 10/18/2024 2:53 AM EDT [facility] Comment:Reported eGFRcr in m L/min/1.73m2 is based the CKD-EPI 2020 equation that does not use a race coefficient. Blood Venous blood specimen / Unknown Venipuncture / Unknown 10/18/2024 2:09 AM EDT 10/18/2024 2:25 AM EDT Nirmal Cueto MD LAB BLOOD ORDERABLES Final Result Performing Organization Address City/[facility]/ZIP Co de Phone Number [facility] [address] [place] [address] * (ABNORMAL) Magnesium (10/18/2024 2:09 AM EDT) Magnesium, Plasma 1.8(L) 1.9 - 2.4 mg/dL 10/18/2024 2:53 AM EDT [facility] Blood Venous blood specimen / Unknown Venipuncture / Unknown 10/18/2024 2:09 AM EDT 10/18/2024 2:25 AM EDT Nirmal Cueto MD LAB BLOOD ORDERABLES Final Result [facility] [address] [place] [address] * Phosphorus (10/18/2024 2:09 AM EDT) Phosphorus, Plasma 3.7 2.5 - 4.5 mg/dL 10/18/2024 2:53 AM EDT [facility] Blood Venous blood specimen / Unknown Venipuncture / Unknown 10/18/2024 2:09 AM EDT 10/18/2024 2:25 AM EDT Nirmal Cueto MD LAB BLOOD ORDERABLES Final Result Performing Organization Address [facility] Co de Phone Number [facility] [address] [place] [address] * (ABNORMAL) Protime-INR (10/18/2024 2:09 AM EDT) Prothrombin Time 14.5(H) 12.0 - 14.3 sec LAB COAGULATION METHOD 10/18/2024 2:53 AM EDT [facility] INR 1.1 0.9 - 1.1 LAB COAGULATION METHOD 10/18/2024 2:53 AM EDT [facility] Blood Venous blood specimen / Unknown Venipuncture / Unknown 10/18/2024 2:09 AM EDT 10/18/2024 2:25 AM EDT Narrative [facility] - 10/18/2024 2:53 AM EDT OPTIMAL INR RANGES FOR PATIENT ON ORAL ANTICOAGULANT THERAPY Prevention of venous thromboembolism INR 2.0 to 3.0 In patients with heart disease: Atrial fibrillation INR 2.0 to 3.0 Valvular heart disease INR 2.0 to 3.0 Tissue heart valves INR 2.0 to 3.0 Mechanical prosthetic valves INR 2.5 to 3.5 Prevention of recurrent SD INR 2.5 to 3.5 Nirmal Cueto MD LAB BLOOD ORDERABLES Final Result Performing Organization Address [facility] Co de Phone Number [facility] [address] [place] [address] * (ABNORMAL) POCT glucose meter (10/18/2024 2:08 AM EDT) POCT Glucose 202(H) 74 - 99 mg/dL 10/18/2024 2:10 AM EDT [facility] Comment:Accuracy of a glucos e result [...] Comment 10/18/2024 2:10 AM EDT HEALTHCARE LAB Organ Assembler ID Jourdan Grimes II 10/18/2024 2:10 AM EDT HEALTHCARE LAB Device ID [id number] 10/18/2024 2:10 AM EDT HEALTHCARE LAB Specimen Type POC Capillary 10/18/2024 2:10 AM EDT [facility]ALTHCARE LAB Blood Capillary blood specimen / Unknown 10/18/2024 2:08 AM EDT 10/18/2024 2:10 AM EDT us Terrell Gautam MD LAB POINT OF CARE TE ST DOCKED DEVICE UNSOLICITED RESULTS Final Result Performing Organization Address City/[facility]/ZIP Co de Phone Number HEALTHCARE LAB [address] [place] [address] * (ABNORMAL) POCT glucose meter (10/17/2024 10:07 PM EDT) POCT Glucose 300(H) 74 - 99 mg/dL [...] Comment 10/17/2024 10:10 PM EDT HEALTHCARE LAB Organ Assembler ID Jourdan Grimes II 10/17/2024 10:10 PM EDT HEALTHCARE LAB Device ID [id number] 10/17/2024 10:10 PM EDT HEALTHCARE LAB Specimen Type POC Capillary 10/17/2024 10:10 PM EDT [facility]ALTH[facility]ARE LAB Blood Capillary blood specimen / Unknown 10/17/2024 10:07 PM EDT 10/17/2024 10:10 PM EDT us Terrell Gautam MD LAB POINT OF CARE TE ST DOCKED DEVICE UNSOLICITED RESULTS Final Result Performing Organization Address City/[facility]/ZIP Co de Phone Number HEALTHCARE LAB [address] [place] [address] * (ABNORMAL) POCT glucose meter (10/17/2024 8:07 PM EDT) [facility] POCT Glucose 391(H) 74 - 99 mg/dL 10/17/2024 8:10 PM EDT HEALTHCARE LAB Comment:Accuracy of a [...] Comment 10/17/2024 8:10 PM EDT HEALTHCARE LAB Organ Assembler ID Jourdan Grimes II 10/17/2024 8:10 PM EDT HEALTHCARE LAB Device ID [id number] 10/17/2024 8:10 PM EDT HEALTHCARE LAB Specimen Type POC Capillary 10/17/2024 8:10 PM EDT [facility]ALTH[facility]ARE LAB Blood Capillary blood specimen / Unknown 10/17/2024 8:07 PM EDT 10/17/2024 8:10 PM EDT us Terrell Gautam MD LAB POINT OF CARE TE ST DOCKED DEVICE UNSOLICITED RESULTS Final Result Performing Organization Address City/State/[facility] Co de Phone Number [facility] [address] [place] [address] * (ABNORMAL) POCT glucose meter (10/17/2024 4:01 PM EDT) [facility] POCT Glucose 249(H) 74 - 99 mg/dL [...] 10/17/2024 4:03 PM EDT [facility] Organ Assembler ID Keisha Waller 10/17/2024 4:03 PM EDT HEALTHCARE LAB Device ID [id number] 10/17/2024 4:03 PM EDT [facility] Specimen Type POC Capillary 10/17/2024 4:03 PM EDT [facility]ALTH[facility]ARE LAB Blood Capillary blood specimen / Unknown 10/17/2024 4:01 PM EDT 10/17/2024 4:03 PM EDT us Terrell Gautam MD LAB POINT OF CARE TE ST DOCKED DEVICE UNSOLICITED RESULTS Final Result [facility] [address] [place] [address] * (ABNORMAL) POCT glucose meter (10/17/2024 1:25 PM EDT) [facility] Signature POCT Glucose 225(H) 74 - [...] 10/17/2024 1:27 PM EDT [facility] Organ Assembler ID Kizzy Godfrey 025 1:27 PM EDT [facility] Device ID [id number] 10/17/2024 1:27 PM EDT HEALTHCARE LAB Specimen Type POC Capillary 10/17/2024 1:27 PM EDT [facility]ALTH[facility]ARE LAB Blood Capillary blood specimen / Unknown 10/17/2024 1:25 PM EDT 10/17/2024 1:27 PM EDT us Terrell Gautam MD LAB POINT OF CARE TE ST DOCKED DEVICE UNSOLICITED RESULTS Final Result [facility] [address] [place] [address] * [place] Less than 1 Hour Intraoperative (10/17/2024 1:18 PM EDT) Narrative IMAGING - 10/17/2024 2:05 PM EDT Images were obtained for surgical purposes. See Terrell Gautam's surgical note in the patient's chart for the findings. us Terrell Gautam MD IMG FLUOROSCOPY PROCEDURES Fi nal Result IMAGING * POCT ACT (10/17/2024 12:23 PM EDT) [facility] ACT+ (HIGH RANGE) 211 68 - 600 Seconds 10/29/2024 7:28 AM EDT HEALTHCARE LAB Organ Assembler ID Donna Mcmillan 10/29/2024 7:28 AM EDT HEALTHCARE LAB ACT Device ID [id number] 10/29/2024 7:28 AM EDT HEALTHCARE LAB Comment 10/29/2024 7:28 AM EDT [facility] Comment: ACT performed by staff [...] UNSOLICITED RESULTS Final Result Performing Organization Address City/[facility] Co de Phone Number [facility]ARE LAB [address] LAB [address] [place] [address] * (ABNORMAL) Blood gas, arterial (10/17/2024 11:48 AM EDT) Pathologist [facility] pH, Arterial 7.34 7.31 - 7.42 LAB HEMATOLOGY METHOD 10/17/2024 11:54 AM EDT [facility] pCO2, Arterial 41 32 - 45 mmHg LAB HEMATOLOGY METHOD 10/17/2024 11:54 AM EDT [facility] pO2, Arterial 202 >80 mmHg LAB HEMATOLOGY METHOD 10/17/2024 11:54 AM EDT [facility] SO2, Measured, Arterial 100(H) 94 - 98 % LAB HEMATOLOGY METHOD 10/17/2024 11:54 AM EDT [facility] Base Excess, Arterial -3.2(L) -2.0 - 3.0 mmol/L LAB HEMATOLOGY METHOD 10/17/2024 11:54 AM EDT [facility] Bicarbonate, Calculated, Arterial 22 22 - 26 mmol/L LAB HEMATOLOGY METHOD 10/17/2024 11:54 AM EDT [facility] Hematocrit, Whole Blood 28.6(L) 40.0 - 51.0 % LAB HEMATOLOGY METHOD 10/17/2024 11:54 AM EDT [facility] Sodium, Whole Blood 137 136 - 145 mmol/L LAB HEMATOLOGY METHOD 10/17/2024 11:54 AM EDT [facility] Potassium, Whole Blood 4.5 3.6 - 4.9 mmol/L LAB HEMATOLOGY METHOD 10/17/2024 11:54 AM EDT [facility] Chloride, Whole Blood 112(H) 97 - 107 mmol/L LAB HEMATOLOGY METHOD 10/17/2024 11:54 AM EDT [facility] Glucose, Whole Blood 201(H) 74 - 99 mg/dL LAB HEMATOLOGY METHOD 10/17/2024 11:54 AM EDT [facility] Ionized Calcium, Whole Blood 4.8 4.6 - 5.1 mg/dL LAB HEMATOLOGY METHOD 10/17/2024 11:54 AM EDT [facility] Lactate, Arterial, Whole Blood 2.3(H) 0.5 - 1.6 mmol/L LAB HEMATOLOGY METHOD 10/17/2024 11:54 AM EDT [facility] Blood Arterial blood specimen / Unknown Arterial Puncture / Unknown 10/17/2024 11:48 AM EDT 10/17/2024 11:53 AM EDT us Jenna Lopez [employer] LAB BLOOD ORDERABLES Final Re sult [facility] [address] [place] [address] * POCT ACT (10/17/2024 11:41 AM EDT) ACT+ (HIGH RANGE) 175 68 - 600 Seconds 10/29/2024 7:28 AM EDT HEALTHCARE LAB Organ Assembler ID Oneyda Alicea 10/29/2024 7:28 AM EDT HEALTHCARE LAB ACT Device ID [id number] 10/29/2024 7:28 AM EDT [facility] Comment 10/29/2024 7:28 AM EDT [facility] Comment: ACT performed by staff [...] UNSOLICITED RESULTS Final Result Performing Organization Address City/[facility]/ZIP Co de Phone Number HEALTHCARE LAB [address] LAB [address] [place] [address] * POCT ACT (10/17/2024 11:11 AM EDT) ACT+ (HIGH RANGE) 252 68 - 600 Seconds 10/29/2024 7:28 AM EDT [facility] Organ Assembler ID Donna Mcmillan 10/29/2024 7:28 AM EDT [facility] ACT Device ID [id number] 10/29/2024 7:28 AM EDT HEALTHCARE LAB Comment 10/29/2024 7:28 AM EDT [facility] Comment: ACT performed by staff [...] UNSOLICITED RESULTS Final Result Performing Organization Address City/[facility]/ZIP Co de Phone Number HEALTHCARE LAB [address] LAB [address] [place] [address] * (ABNORMAL) Blood gas, arterial (10/17/2024 10:46 AM EDT) [facility] pH, Arterial 7.35 7.31 - 7.42 LAB HEMATOLOGY METHOD 10/17/2024 10:56 AM EDT [facility] pCO2, Arterial 42 32 - 45 mmHg LAB HEMATOLOGY METHOD 10/17/2024 10:56 AM EDT [facility] pO2, Arterial 161 >80 mmHg LAB HEMATOLOGY METHOD 10/17/2024 10:56 AM EDT [facility] SO2, Measured, Arterial 100(H) 94 - 98 % LAB HEMATOLOGY METHOD 10/17/2024 10:56 AM EDT [facility] Base Excess, Arterial -2.2(L) -2.0 - 3.0 mmol/L LAB HEMATOLOGY METHOD 10/17/2024 10:56 AM EDT [facility] Bicarbonate, Calculated, Arterial 23 22 - 26 mmol/L LAB HEMATOLOGY METHOD 10/17/2024 10:56 AM EDT [facility] Hematocrit, Whole Blood 29.9(L) 40.0 - 51.0 % LAB HEMATOLOGY METHOD 10/17/2024 10:56 AM EDT [facility] Sodium, Whole Blood 138 136 - 145 mmol/L LAB HEMATOLOGY METHOD 10/17/2024 10:56 AM EDT [facility] Potassium, Whole Blood 4.0 3.6 - 4.9 mmol/L LAB HEMATOLOGY METHOD 10/17/2024 10:56 AM EDT [facility] Chloride, Whole Blood 110(H) 97 - 107 mmol/L LAB HEMATOLOGY METHOD 10/17/2024 10:56 AM EDT [facility] Glucose, Whole Blood 174(H) 74 - 99 mg/dL LAB HEMATOLOGY METHOD 10/17/2024 10:56 AM EDT [facility] Ionized Calcium, Whole Blood 5.1 4.6 - 5.1 mg/dL LAB HEMATOLOGY METHOD 10/17/2024 10:56 AM EDT [facility] Lactate, Arterial, Whole Blood 1.4 0.5 - 1.6 mmol/L LAB HEMATOLOGY METHOD 10/17/2024 10:56 AM EDT [facility] Blood Arterial blood specimen / Unknown Arterial Puncture / Unknown 10/17/2024 10:46 AM EDT 10/17/2024 10:54 AM EDT us Jenna Lopez [employer] LAB BLOOD ORDERABLES Final Re sult [facility] [address] [place] [address] * POCT ACT (10/17/2024 10:37 AM EDT) ACT+ (HIGH RANGE) 206 68 - 600 Seconds 10/29/2024 7:28 AM EDT HEALTHCARE LAB Organ Assembler ID Donna Mcmillan 10/29/2024 7:28 AM EDT [facility] ACT Device ID [id number] 10/29/2024 7:28 AM EDT [facility] Comment 10/29/2024 7:28 AM EDT [facility] Comment: ACT performed by staff [...] UNSOLICITED RESULTS Final Result Performing Organization Address City/[facility] Co de Phone Number [facility] [address] LAB [address] [place] [address] * Surgical Pathology Exam (10/17/2024 10:27 AM EDT) Case Report Surgical Pathology Case: [id number] Authorizing Provider: Terrell Gautam MD Collected: 10/17/2024 1027 Ordering Location: [facility] Received: 10/17/2024 1325 Pathologist: Haydee Osborne MD Specimen: Other (specify site), left common femoral plaque 10/21/2024 10:16 AM EDT [facility] Final Diagnosis A. LEFT COMMON FEMORAL PLAQUE, EXCISION: - CALCIFIED PLAQUE 10/21/2024 10:16 AM EDT [facility] at 1016 EDT Clinical Information Critical limb ischemia of left lower extremity [I70.222] 10/21/2024 10:16 AM EDT [facility] Gross Description A. LEFT COMMON FEMORAL PLAQUE Received in formalin labeled l eft common femoral plaque , is one aggregate of red-gabriel hard portions of plaque measuring 3.7 x 2.5 x 0.9 cm. The specimen is serially sectioned and route sales representative sections are submitted in cassette A1. Cold Time: <1m Kenia Dawit Aceves 10/21/2024 10:16 AM EDT [facility] Note: A resident was involved in the service. I attest I examined the relevant preparations for the specimens and confirmed the diagnosis or interpretation. 10/21/2024 10:16 AM EDT [facility] Tissue Topography unknown / Unknown 10/17/2024 10:27 AM EDT 10/17/2024 1:25 PM EDT Comment:Pre-op diagnosis: Critical limb ischemia of left lower extremity [I70.222] us Terrell Gautam MD LAB PATHOLOGY ORDERABLES Gwen grimaldo Result [facility] [address] [place] [address] * POCT ACT (10/17/2024 10:03 AM EDT) ACT+ (HIGH RANGE) 244 68 - 600 Seconds 10/29/2024 7:28 AM EDT HEALTHCARE LAB Organ Assembler ID Donna Mcmillan Maya 10/29/2024 7:28 AM EDT HEALTHCARE LAB ACT Device ID [id number] 10/29/2024 7:28 AM EDT HEALTHCARE LAB Comment 10/29/2024 7:28 AM EDT [facility] Comment: ACT performed by staff [...] ST DOCKED DEVICE UNSOLICITED RESULTS Final Result [facility] [address] LAB [address] [place] [address] * (ABNORMAL) Blood gas, arterial (10/17/2024 9:45 AM EDT) pH, Arterial 7.37 7.31 - 7.42 LAB HEMATOLOGY METHOD 10/17/2024 9:55 AM EDT [facility] pCO2, Arterial 43 32 - 45 mmHg LAB HEMATOLOGY METHOD 10/17/2024 9:55 AM EDT [facility] pO2, Arterial 177 >80 mmHg LAB HEMATOLOGY METHOD 10/17/2024 9:55 AM EDT [facility] SO2, Measured, Arterial 100(H) 94 - 98 % LAB HEMATOLOGY METHOD 10/17/2024 9:55 AM EDT [facility] Base Excess, Arterial -0.5 -2.0 - 3.0 mmol/L LAB HEMATOLOGY METHOD 10/17/2024 9:55 AM EDT [facility] Bicarbonate, Calculated, Arterial 25 22 - 26 mmol/L LAB HEMATOLOGY METHOD 10/17/2024 9:55 AM EDT [facility] Hematocrit, Whole Blood 30.0(L) 40.0 - 51.0 % LAB HEMATOLOGY METHOD 10/17/2024 9:55 AM EDT [facility] Sodium, Whole Blood 137 136 - 145 mmol/L LAB HEMATOLOGY METHOD 10/17/2024 9:55 AM EDT [facility] Potassium, Whole Blood 4.3 3.6 - 4.9 mmol/L LAB HEMATOLOGY METHOD 10/17/2024 9:55 AM EDT [facility] Chloride, Whole Blood 108(H) 97 - 107 mmol/L LAB HEMATOLOGY METHOD 10/17/2024 9:55 AM EDT [facility] Glucose, Whole Blood 191(H) 74 - 99 mg/dL LAB HEMATOLOGY METHOD 10/17/2024 9:55 AM EDT [facility] Ionized Calcium, Whole Blood 5.0 4.6 - 5.1 mg/dL LAB HEMATOLOGY METHOD 10/17/2024 9:55 AM EDT [facility] Lactate, Arterial, Whole Blood 1.3 0.5 - 1.6 mmol/L LAB HEMATOLOGY METHOD 10/17/2024 9:55 AM EDT [facility] Blood Arterial blood specimen / Unknown Arterial Line / Unknown 10/17/2024 9:45 AM EDT 10/17/2024 9:52 AM EDT us Jenna Lopez CRNA LAB BLOOD ORDERABLES Final Re sult [facility] [address] [place] [address] * (ABNORMAL) Blood gas, arterial (10/17/2024 8:47 AM EDT) pH, Arterial 7.37 7.31 - 7.42 LAB HEMATOLOGY METHOD 10/17/2024 8:59 AM EDT [facility] pCO2, Arterial 43 32 - 45 mmHg LAB HEMATOLOGY METHOD 10/17/2024 8:59 AM EDT [facility] pO2, Arterial 205 >80 mmHg LAB HEMATOLOGY METHOD 10/17/2024 8:59 AM EDT [facility] SO2, Measured, Arterial 100(H) 94 - 98 % LAB HEMATOLOGY METHOD 10/17/2024 8:59 AM EDT [facility] Base Excess, Arterial -0.3 -2.0 - 3.0 mmol/L LAB HEMATOLOGY METHOD 10/17/2024 8:59 AM EDT [facility] Bicarbonate, Calculated, Arterial 25 22 - 26 mmol/L LAB HEMATOLOGY METHOD 10/17/2024 8:59 AM EDT [facility] Hematocrit, Whole Blood 31.3(L) 40.0 - 51.0 % LAB HEMATOLOGY METHOD 10/17/2024 8:59 AM EDT [facility] Sodium, Whole Blood 138 136 - 145 mmol/L LAB HEMATOLOGY METHOD 10/17/2024 8:59 AM EDT [facility] Potassium, Whole Blood 4.0 3.6 - 4.9 mmol/L LAB HEMATOLOGY METHOD 10/17/2024 8:59 AM EDT [facility] Chloride, Whole Blood 108(H) 97 - 107 mmol/L LAB HEMATOLOGY METHOD 10/17/2024 8:59 AM EDT [facility] Glucose, Whole Blood 162(H) 74 - 99 mg/dL LAB HEMATOLOGY METHOD 10/17/2024 8:59 AM EDT [facility] Ionized Calcium, Whole Blood 5.2(H) 4.6 - 5.1 mg/dL LAB HEMATOLOGY METHOD 10/17/2024 8:59 AM EDT [facility] Lactate, Arterial, Whole Blood 1.7(H) 0.5 - 1.6 mmol/L LAB HEMATOLOGY METHOD 10/17/2024 8:59 AM EDT [facility] Blood Arterial blood specimen / Unknown Arterial Puncture / Unknown 10/17/2024 8:47 AM EDT 10/17/2024 8:58 AM EDT us Jenna Lopez CRNA LAB BLOOD ORDERABLES Final Re sult Performing Organization Address [facility]/ZIP Co de Phone Number [facility] [address] [place] [address] * POCT ACT (10/17/2024 8:46 AM EDT) ACT+ (HIGH RANGE) 101 68 - 600 Seconds 10/29/2024 7:28 AM EDT [facility] Organ Assembler ID Donna Mcmillan 10/29/2024 7:28 AM EDT [facility] ACT Device ID [id number] 10/29/2024 7:28 AM EDT [facility] Comment 10/29/2024 7:28 AM EDT [facility] Comment: ACT performed by staff [...] Final Result Performing Organization Address [facility]/ZIP Co de Phone Number [facility] [address] [facility] [address] [place] [address] * Type and Screen (10/17/2024 7:19 AM EDT) [facility] ABO/Rh A Negative 10/17/2024 7:04 AM EDT BLOOD BANK Antibody Screen Negative 10/17/2024 7:04 AM EDT BLOOD BANK Specimen Expiration 10/20/2024 23:59 10/17/2024 7:04 AM EDT BLOOD BANK Blood Venous blood specimen / Unknown Venipuncture / Unknown 10/17/2024 7:19 AM EDT 10/17/2024 7:28 AM EDT us Maria Fernanda Mccallum MD LAB BLOOD BANK TEST ORDERAB LES [place] [address], * (ABNORMAL) POCT glucose meter (10/17/2024 6:44 AM EDT) [facility] POCT Glucose 178(H) 74 - 99 mg/dL 10/17/2024 6:49 AM EDT [facility] Comment:Accuracy of a [...] 10/17/2024 6:49 AM EDT [facility] Organ Assembler ID Hunter Burroughs 10/18/19 6:49 AM EDT [facility] Device ID [id number] 10/17/2024 6:49 AM EDT [facility] Specimen Type POC Capillary 10/17/2024 6:49 AM EDT [facility] Blood Capillary blood specimen / Unknown 10/17/2024 6:44 AM EDT 10/17/2024 6:49 AM EDT us Terrell Gautam MD LAB POINT OF CARE TE ST DOCKED DEVICE UNSOLICITED RESULTS Final Result [facility] [address] [place] [address] documented in this encounter Visit Diagnoses Diagnosis [...] II, CHRISTIAN) 08 (Given - Provider: Emilia Alonso RN)2001 [...] Grimes II, RN) 2002 (Given - Provider: Ksasie Mao, CHRISTIAN) insulin lispro (Admelog) 100 units/mL [...] (Given - Provider: Jourdan Grimes II, CHRISTIAN) 020 (Not Given - Provider: Jourdan Grimes [...] (Given - Provider: Jourdan Grimes II, RN) 808 (Given - Provider: Emilia Alonso RN)2001 (Given - Provider: Kassie Mao, CHRISTIAN) 51 (Given - Provider: Keyla Chow) Povidone-Iodine 5 % swab solution 1 Application (COMPLETED) Nasal, Once, 1 dose, On Mon10/17/24 at 0745, Routine 07 (Given - Provider: Tanja Denise, CHRISTIAN) pravastatin (Pravachol) tablet 40 mg 40 mg, Oral, Nightly, First dose on Mon10/17/24 at 2100, Until Discontinued, Routine, Recovery(Phase II-Outpatient)/On Unit(Inpatient) 2012 (Given - Provider: Jourdan Grimes II, RN) 2001 (Given - Provider: Kassie Mao, CHRISTIAN) [...] II, RN) 08 (Given - Provider: Emilia Aolnso RN)2001 (Given - Provider: Kassie Mao, CHRISTIAN) 951 (Given - Provider: Keyla Chow) sodium chloride 0.9 % flush 10 mL (CANCELED)(Linked Group 1) 10 mL, Intravenous, Every 12 hours, First dose on Mon10/17/24 at 0745, Until Discontinued, Routine, Holding - Preprocedure 07 (Given - Provider: Tanja Denise RN)1944 (Given - Provider: Jourdan Grimes II, RN) [...] [place], CHRISTIAN)1109 (Given - Provider: Emilia Alnoso, CHRISTIAN) 0239 (Given - Provider: Kassie Mao, [...] documented as of this encounter Care Teams Manager Transfusion Relationship Specialty Start Date End Date Asad Victor MD [address] [place] [address] PCP - General 10/07/22 documented as of this encounter
--- OUTSIDE RECORDS SUMMARY | 2024-10-17 07:51 | XMS_ITS | Encounter Summary ---
Author Organization [facility] Address [address] [place] [address] Care Team Providers Care Landscape Horticulture Instructor Name Role Phone Asad Victor MD Primary Care Provider + [phone] Reason for Visit * Auth/Cert (Routine) Specialty Diagnoses / Procedures Referred By Susan bull Referred To Contact Diagnoses Critical limb ischemia of left lower extremity Critical limb ischemia of left lower extremity [I70.222] Procedures SD VEIN BYPASS GRAFT,FEM-POP CREATION, BYPASS, ARTERIAL, FEMORAL TO POPLITEAL Terrell Gautam MD [address] [place] [address] Phone: tel: fax: [facility] ROOM [address] [place] [address] Phone: tel: Referral ID Status Reason Start Date Expiration Date Visits Re quested Visits Authorized [id number] 1 1 Encounter Details Date Type Department Care Team (Late st Contact Info) Description 10/17/2024 7:51 AM EDT Anesthesia Event [facility] [address] [place] [address] Maria Fernanda Mccallum MD [address] [place] [id number] Anesthesia Record Procedure Summary Procedure Name Responsible [...] Hand; Site Prep: Chlorhexidine ; Local Anesth: [place]; Technique: Anatomical landmarks; Inserted by: CHRISTIAN Acuna; [...] any time in the past 12 m [facility], were you homeless or [...] drink first t dino in the morning (EYE-INTERACTIVE DEVELOPER) to steady your nerves or to get rid of a hangover? 0 10/18/2021 CAGE Questionnaire Score 0 022 Utilities Answer Date Recorded In the past 12 months has [employer], gas, oil, or water [employer] threatened to shut off services in your home? No 10/18/2024 Sex and Gender Information Value Date Recorded Sex Assigned at Not on file Legal Sex Male 8:57 PM EDT Gender Identity Not on file Sexual Orientation Not on file documented as of this encounter Miscellaneous Notes * Anesthesia Postprocedure Evaluation - Jenna Lopez, STRATEGIC PARTNERSHIP REPRESENTATIVE - 10/17/2024 1:29 PM EDT Patient: Mono [...] by Swetha Villareal MD Staffing Performed: ISH STRATEGIC PARTNERSHIP REPRESENTATIVE: Jenna Lopez CRNA * Anesthesia Procedure Notes - Jenna Lopez CRNA - 10/17/2024 9:00 AM EDT Associated Order(s): Airway Airway Date/Time: 10/17/2024 8:03 AM Reason: elective Airway not difficult General Information and Staff Patient location during procedure: OR STRATEGIC PARTNERSHIP REPRESENTATIVE: Jenna Lopez CRNA Performed: STRATEGIC PARTNERSHIP REPRESENTATIVE Patient Condition Indications for airway management: anesthesia [...] HTN, RLS who presented to 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 S/P intravascular lithotripsy of left common and external iliac artery with 2 continuous balloon mounted bare metal stents 09/12/24 on Xarelto and ASA + WILHELM occ, low energy for > year - had work-up recently in [place] (will get records) + peripheral edema LLE [...] PERDOMO DOI 10/04/2023 MODE: DDDR Physical Exam Airway Mallampati: III Mouth opening: normal Neck ROM: full Cardiovascular Rhythm: regular Rate: normal Dental (+) edentulous Pulmonary (+) decreased breath sounds Neurological Oriented: normal to time, normal to place and normal to person Skin Musculoskeletal Extremities Anesthesia Plan ASA 3 Plan was reviewed with: STRATEGIC PARTNERSHIP REPRESENTATIVE Anesthesia technique(s) discussed with the patient/family: general [...] CARDIAC PACEMAKER PLACEMENT ??? CAROTID ENDARTERECTOMY N/A 2016 Endarterectomy Carotid Artery from [employer] ??? CORONARY ANGIOPLASTY Left Coronary Angiography With Concomitant Left Heart Catheterization from [employer] ??? CORONARY ARTERY BYPASS GRAFT N/A 2018 [...] Appointment [facility] [address] [place] [address] 11/26/2024 2:30 PM EDT Appointment [facility] [address] [place] [address] 11/26/2024 3:20 PM EDT Office Visit [facility] [address] [place] [address] Elisabet Schuster PA [address] [facility] [address] [place] [address] documented as of this encounter Goals Goal Patient Goal Type Associated Problems Recent Progress Patient-Stated? Author Autogenera louise Goal Care Plan Autogenerated Problem No Ekta Arnett documented as of this encounter Procedures Procedure Name Priority Date/Time Associated Diagnosis Comments ANESTHESIA ULTRASOUND GUIDED Routine 10/17/2024 8:52 AM EDT ANESTHESIA ARTERIAL LINE PLACEMENT Routine 10/17/2024 8:25 AM EDT PB ANESTHESIA PLACEHOLDER Routine 10/17/2024 8:03 AM EDT SD AN ELECTIVE ENDOTRACHEAL AIRWAY Routine 10/17/2024 8:03 [...] by Swetha Villareal MD Staffing Performed: ISH STRATEGIC PARTNERSHIP REPRESENTATIVE: Jenna Lopez CRNA Maria Fernanda Mccallum MD ANESTHESIA ORDERABLES Edite d Result - Final * SD AN ELECTIVE ENDOTRACHEAL AIRWAY, PB ANESTHESIA PLACEHOLDER (10/17/2024 8:03 AM EDT) Jenna Martinez CRNA - 10/17/2024 8:03 AM EDT Jenna Lopez CRNA 10/17/2024 9:00 AM Airway Date/Time: 10/17/2024 8:03 AM Reason: elective Airway not difficult General Information and Staff Patient location during procedure: OR STRATEGIC PARTNERSHIP REPRESENTATIVE: Jenna Lopez CRNA Performed: STRATEGIC PARTNERSHIP REPRESENTATIVE Patient Condition Indications for airway management: anesthesia [...] Mccallum MD ANESTHESIA ORDERABLES Final Result * [facility] AN POCUS CARDIAC PROCDOC (10/17/2024 7:18 [...] Trace AR. The images were Saved in [employer] - E. The study was technically adequate. [...] documented as of this encounter Care Teams Landscape Horticulture Instructor Relationship Specialty Start Date End Date Asad Victor MD [address] [place] [address] PCP - General 10/07/22 documented as of this encounter
--- OUTSIDE RECORDS SUMMARY | 2024-10-17 08:00 | XMS_ITS | Encounter Summary ---
Author Organization Healthcare Address [address] [place] [address] Care Team Providers Care Bobj Developer Name Role Phone Asad Victor MD Primary Care Provider + [phone] Reason for Visit * Auth/Cert (Routine) Specialty Diagnoses / Procedures Referred By Susan bull Referred To Contact Diagnoses Critical limb ischemia of left lower extremity Critical limb ischemia of left lower extremity [I70.222] Procedures DE VEIN BYPASS GRAFT,FEM-POP CREATION, BYPASS, ARTERIAL, FEMORAL TO POPLITEAL Terrell Gautam MD [address] [facility] [address] [place] [address] Phone: tel: fax: [facility] [address] [place] [address] Phone: tel: Referral ID Status Reason Start Date Expiration Date Visits Re quested Visits Authorized [id number] 1 1 Encounter Details Date Type Department Care Team (Late st Contact Info) Description 10/17/2024 8:00 AM EDT - 10/17/2024 2:50 PM EDT Surgery [facility] [address] [place] [id number] Terrell Gautam MD [id number] [place] [address] CREATION, BYPASS, ARTERIAL, FEMORAL TO POPLITEAL [31262 (CPT )] Surgery Details Date/Time Status Location OR Service Patient Class Case Class Case Type Trauma Case? 10/17/2024 8:00 AM Posted [facility] 09 Vascular Surgery Surgery Admit E-Electi [...] drink first t dino in the morning (EYE-AWNING SPREADER) to steady your nerves or to get rid of a hangover? 0 10/18/2021 CAGE Questionnaire Score 0 022 Utilities Answer Date Recorded In the past 12 months has [employer], gas, oil, or water [employer] threatened to shut off services in your [...] hours for 10 days. 60 tablet 10/19/2024 documented as of this encounter Miscellaneous Notes * Care Plan - Keyla Chow - 10/19/2024 11:46 AM EDT Problem: Adult Inpatient Plan of Care Goal: Plan of Care Review 10/19/2024 114 by Keyla Chow Outcome: Met Flowsheets Taken 10/19/2024 1145 Progress: improving Taken 10/19/2024 1048 Plan of [...] Goal: Readiness for Transition of Care 10/19/2024 114 by Keyla Chow Outcome: Met 10/19/2024 1048 by Keyla Chow Outcome: Ongoing, Progressing Problem: Fall Injury Risk Goal: Absence of Fall and Fall-Related Injury 10/19/2024 114 by Keyla Chow Outcome: Met 10/19/2024 1048 by Keyla Cohw Outcome: Ongoing, Progressing Intervention: Identify and Manage Contributors Flowsheets Taken 10/19/2024 1048 by Keyla Chow Self-Care Promotion: BADL personal objects within reach meal set-up provided Taken 10/17/20242107 by Jourdan Grimes II, tubular riveter Review/Management: medications reviewed Problem: Skin Injury Risk [...] Goal: Effective Bowel Elimination 10/19/2024 1145 by eKyla Chow Outcome: Met 10/19/2024 1048 [...] Ongoing, Progressing Intervention: Promote Activity and Functional [place] Flowsheets (Taken 10/19/2024 1048) Self-Care Promotion: BADL personal objects within reach meal set-up provided * Yuni Ramires - Keyla Chow - 10/19/2024 11:45 AM EDT Images from the original note were not included. [id number] After Peripheral Artery Bypass Surgery: In the [...] home. Last Reviewed Date: 2023 00:00:00 ?? [id number] [employer]. All rights reserved. This information is not intended as a substitute for professional medical care. Always follow your healthcare professional's instructions. * Progress Notes - Emelina Friend - 10/19/2024 11:44 AM EDT Case Management Adult Progress Note Bev Bobby 64 y.o. male CSN: [id number] Admission: 10/17/2024 6:21 AM Primary Problem: Critical [...] if any other needs arise. Emelina Friend REDUCTION PLANT SUPERVISOR, PRINT PRODUCTION ASSOCIATE Social Work Case Management * Keyla Reyes - 10/19/2024 11:44 AM EDT Images from the original note were not included. [id number] Peripheral Artery Disease (PAD) Peripheral artery disease [...] cause. Last Reviewed Date: 2024 00:00:00 ?? 7422-9271 [employer]. All rights reserved. This information is not intended as a substitute for professional medical care. Always follow your healthcare professional's instructions. * Yuni [facility] - Keyla Chow - 10/19/2024 11:44 AM EDT Images from the original note were not included. [id number] Leg Artery Emergencies: Critical Limb Ischemia (CLI) [...] appointments. Last Reviewed Date: 2023 00:00:00 ?? [id number] [employer]. All rights reserved. This information is not intended as a substitute for professional medical care. Always follow your healthcare professional's instructions. * Discharge Summary - Dandy Baltazar MD - 10/19/2024 11:31 AM EDT Hospitalization Admit Date/Time: 10/17/2024 6:21 AM Admitting Attending: Terrell Gautam Discharge Date: 10/19/24 Discharge Attending Physician: Nirmal Cueto MD PCP name and Address: Asad Victor MD (Inactive) [address] [facility] [address] Referring provider name and address: Timothy Marques PA [address] [place] [address] Chief Concern, Brief History of Present Illness, and Hospital Course Bev Bobby is an 64 y.o. 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 He [...] sent to [facility] [place], [place] - [address] [address] [facility] [facility] [address], [place] [id number] acetaminophen 500 MG tablet clopidogrel 75 MG [...] of water. 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 He [...] Review Outcome: Ongoing, Progressing Flowsheets (Taken 10/19/2024 104) Progress: improving Plan of Care Reviewed With: [...] provided Taken 10/17/20242107 by Jourdan Grimes II tubular riveter Review/Management: medications reviewed Problem: Skin Injury Risk [...] Ongoing, Progressing Intervention: Promote Activity and Functional [place] Flowsheets (Taken 10/19/2024 1048) Self-Care Promotion: BADL [...] evaluation. PARTICIPANTS IN CARE Visitors Present No Psychiatric Np (if applicable) PRESENTATION Oxygen Oxygen Therapy: None [...] Level of Mobility Ambulatory- household only Mobility [place] Independent gait with device (rollator) History of [...] numbness in rodney) BED MOBILITY Level of [place] Physical/Non- physical Assist Adaptive Equipment Utilized Rolling/ Turning Scooting/ Bridging Modified independence (anteriorly to EOB) Bed rails Supine to Sit Modified [place] (to the right) (HOB flat) Bed rails Sit to Supine Interventions HOB flat to simulate home environment TRANSFERS Level of [place] Physical/Non- physical Assist Adaptive Equipment Utilized Sit [...] stable surfaces during transitions. AMBULATION Level of [place] Distance Adaptive Equipment Utilized Ambulation Standby assist, [...] Posture: Forward head, Rounded shoulders Level of [place] Balance Support Interventions Static Sit Independent Right [...] RW) STANDARDIZED ASSESSMENTS Standardized Assessments Standardized Assessments: [facility] 6-Clicks Mobility Assessment [facility] 6-Clicks Mobility Assessment Difficulty patient has [...] 3-5 steps with a railing?: A little [facility] 6-Clicks Mobility Assessment Total : 22 [...] evaluation/session. Participants in Care Family/Caregiver Present: No Psychiatric Np: Not Applicable Presentation Oxygen Therapy: None (Room [...] Level of Mobility: Ambulatory- household only Mobility [place]: Independent gait with device (rollator) History of [...] Mobility Bed Mobility Exam: Scooting/Bridging Level of [place]: Modified independence (anteriorly to EOB) Assistive Device: Bed rails Bed Mobility Exam: Supine to Sit Level of [place]: Modified [place] (to the right) Physical/Nonphysical Assist: (HOB flat) Assistive Device: Bed rails Transfers Transfer Exam: Sit to stand Level of [place]: Stand-by assist Physical/Nonphysical Assist: Supervision, Verbal Cues, Minimal cues Assistive Device: Walker, rolling Transfer Exam: Stand to Sit Level of [place]: Stand-by assist Physical/Nonphysical Assist: Supervision, Verbal Cues, [...] toileting at this time. Standardized Assessments [facility] 6-Click Daily Activities Help from Other: Don/Doff Regular Lower Body Clothings: None Help From Other: Bathing: Little Help From Other: Toileting: None Help From Other: Don/Doff Upper Body Clothings: None Help From Other: Grooming: None Help From Other: Eating Meals: None [facility] 6 Click - Daily Activities Score: 23/24 [facility] Scoring Interpretation: Scores greater than 20.5 [...] Note Bev Bobby 64 y.o. male CSN: [id number] Admission: 10/17/2024 6:21 AM Primary Problem: Critical limb ischemia of left lower extremity Restaurant Operations Manager reviewed chart and spoke with patient to complete this Initial Case Management Assessment. PCP: Asad Victor MD (Inactive) - Dr. Palomo Preferred pharmacy is [facility] Emergency Contact: Extended Emergency Contact Information Primary Emergency Contact: Patti Hill Relation: Sister Psychiatric Np needed? No Insurance: Primary Visit Coverage Payer Plan Sponsor Code Group Number Group Name [facility] MEDICARE [facility] MEDICARE REPLACEMENT [id number] Primary Visit Coverage Subscriber Subscriber ID Subscriber Name Subscriber SSN Subscriber Address [id number] BEV BOBBY [id number] [place] [address] Secondary Visit Coverage Payer Plan Sponsor Code Group Number Group Name [facility] Secondary Visit Coverage Subscriber Subscriber ID Subscriber Name Subscriber SSN Subscriber Address [id number] BEV BOBBY [id number] [place] [address] Patient information: Primary Caregiver: Self Daily Living Activities: Functional Status: Independent Living Arrangements: Alone Type of Residence: Private residence, Single Level [address] [place] [address] Current DME: Equipment Currently Used at Home: joy monterroso Income Information: Income Source: Retired Income/Expense Information: Income meets expenses Current Resources Utilized: Food Raymond Housing Circumstances-Z Codes: Housing Circumstances (select all [...] Dialysis Services: None. Living Will/Advance Directive/Power of Foundry Worker Apprentice /Guardian: Denied. Additional Comments: Patient is not medically ready for discharge. SW will continue to follow. Mariia Monterroso PRINT PRODUCTION ASSOCIATE * Care Plan - Emilia [...] from the original note were not included. [facility] Department of Surgery Division of Vascular Surgery [...] Airway None Output by Drain (mL) 10/16/24 0700 - 10/16/24 1859 10/16/24 1900 - 10/17/24 0659 10/17/24 0700 - 10/17/24 1859 10/17/24 1900 - 10/18/24 [...] 10/18/2024 10:16 AM EDT Associated attestation - Nimral Cueto MD - 10/18/2024 10:16 AM EDT [...] supervised assistive device/personal items within [facility] fall prevention program maintained lighting [...] supervised assistive device/personal items within [facility] fall prevention program maintained lighting [...] Agree with above assessment and evaluation from resident/ASSOCIATE [employer]. * Op Note - Terrell Gautam MD - 10/17/2024 8:52 AM EDT Operative Note Date: 10/17/24 Location: [place] Name: Bev Bobby, : 1960, Diagnoses: Pre-op Diagnosis Critical limb ischemia of left lower extremity Common femoral artery pseudoaneurysm Post-op Diagnosis Critical limb ischemia of left lower extremity Common femoral artery pseudoaneurysm Procedure(s): Left common/superficial/profunda femoral thromboendarterectomy with bovine patch repair Left external iliac artery/FIREPERSON stent Attending Surgeon(s): * Terrell Gautam - Primary Block Cleaner(s): * Luna Beckett MD - Resident - [...] Necessity Reasons Recent surgery contiguous with urinary tract/HAND BOX FOLDER/colorectal 10/17/241899 Output (mL) 50 mL 10/18/24799 Implants Type Name Action Serial No. VASCUGUARD 8 X 8 - [id number] Implanted STENT ENDOPROSTHESIS VIABAHN 9FR [id number] - [id number] Implanted [id number] Specimen: Specimens ID Source Frozen? 1 Other [...] and distal control. We then proceeded with crpkw-jrm-[id number] exposure of the popliteal artery. A medial [...] balloon dilated thestent with a 9 mm Bethany. We closed the arteriotomy with a single [...] 10/17/2024 8:52 AM EDT Date: 10/17/24 Location: [place] Name: Bev Bobby, : 1960, Diagnoses: Pre-op Diagnosis Critical limb ischemia of left lower extremity Common femoral artery pseudoaneurysm Post-op Diagnosis Critical limb ischemia of left lower extremity Common femoral artery pseudoaneurysm Procedure(s): Left common/superficial/profunda femoral thromboendarterectomy with bovine patch repair Left external iliac artery/FIREPERSON stent Attending Surgeon(s): * Terrell Gautam - Primary Block Cleaner(s): * Luna Beckett MD - Resident - Assisting * Dandy Baltazar MD - Fellow Anesthesia: General ASA: III Blood Administration: Blood Product Administration History None Estimated Blood Loss: 300 mL Drains: Urethral Catheter Temperature probe 16 Fr. (Active) Implants Type Name Action Serial No. JADE 8 X 8 - [id number] Implanted STENT ENDOPROSTHESIS VIABAHN 9FR [id number] - [id number] Implanted [id number] Specimen: Specimens ID Source Frozen? 1 Other [...] issues. 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 He previouslyunderwent thrombin injection. He reports pain in his calves. He presents today for scheduled left lower extremity femoral to [id number]-[id number] popliteal bypass. Planned likely use PTFE. He [...] 16. Results Review {Vanishing Link Review Results :[id number] I have reviewed the latest lab and imaging results. Assessment & Plan Critical limb ischemia of left lower extremity Proceed with scheduled surgery left lower extremity femoral to aurkw-iqs-wlom popliteal artery bypass graft. Extensive discussion had [...] [facility] [address] [place] [address] 11/26/2024 2:30 PM EDT Appointment [facility] [address] [place] [address] 11/26/2024 3:20 PM EDT Office Visit [facility] [address] [place] [address] Elisabet Schuster PA [address] [facility] [address] [place] [address] Pending Results Name Type Priority Associated Diagnoses [...] lower extremity Pseudoaneurysm of left femoral artery ([facility]) Expected: 11/19/2024, Expires: 04/22/2026 documented as of this encounter Goals Goal Patient Goal Type Associated Problems Recent Progress Patient-Stated? Author Vandana gil Goal Care Plan Autogenerated Problem No [...] PREPARE RBC STAT 10/17/2024 8:06 AM EDT DE VEIN BYPASS GRAFT,FEM-POP 10/17/2024 7:38 AM EDT Critical limb ischemia of left lower extremity TYPE AND SCREEN Routine 10/17/2024 7:19 AM EDT POCT GLUCOSE METER UNSOLICITED RESULTS Routine 10/17/2024 6:44 AM EDT documented in this encounter Results * (ABNORMAL) POCT glucose meter (10/19/2024 11:40 AM EDT) POCT Glucose 207(H) 74 - 99 mg/dL 10/19/2024 11:42 AM EDT [email or web address] Comment:Accuracy of a glucos e result [...] Comment 10/19/2024 11:42 AM EDT HEALTHCARE LAB Sql Data Architect ID Job Andrew 10/20/19 11:42 AM EDT HEALTHCARE LAB Device ID [id number] 10/19/2024 11:42 AM EDT HEALTHCARE LAB Specimen Type POC Capillary 10/19/2024 11:42 AM EDT [facility] Blood Capillary blood specimen / Unknown 10/19/2024 11:40 AM EDT 10/19/2024 11:42 AM EDT us Terrell Gautam MD LAB POINT OF CARE TE ST DOCKED DEVICE UNSOLICITED RESULTS Final Result Performing Organization Address City/[facility] Co de Phone Number [facility] [address] [place] [address] * (ABNORMAL) Protime-INR (10/19/2024 8:25 AM EDT) [...] INR 2.5 to 3.5 Prevention of recurrent [place] INR 2.5 to 3.5 us Nirmal Cueto MD LAB BLOOD ORDERABLES Final Result Performing Organization Address City/[facility]/ZIP Co de Phone Number [facility] [address] [place] [address] * (ABNORMAL) Phosphorus (10/19/2024 8:25 AM EDT) Phosphorus, Plasma 2.2(L) 2.5 - 4.5 mg/dL 10/19/2024 9:12 AM EDT [facility] Blood Venous blood specimen / Unknown Venipuncture / Unknown 10/19/2024 8:25 AM EDT 10/19/2024 8:43 AM EDT Nirmal Cueto MD LAB BLOOD ORDERABLES Final Result Performing Organization Address City/[facility]/ZIP Co de Phone Number [facility] [address] [place] [address] * Magnesium (10/19/2024 8:25 AM EDT) Pathologist [facility] Magnesium, Plasma 2.1 1.9 - 2.4 mg/dL 10/19/2024 9:12 AM EDT [facility] Blood Venous blood specimen / Unknown Venipuncture / Unknown 10/19/2024 8:25 AM EDT 10/19/2024 8:43 AM EDT Nirmal Cueto MD LAB BLOOD ORDERABLES Final Result Performing Organization Address City/[facility]/ZIP Co de Phone Number [facility] [address] [place] [address] * (ABNORMAL) Basic metabolic panel (10/19/2024 8:25 AM EDT) [facility] Glucose, Plasma 191(H) 74 - 99 mg/dL [...] Final Result [facility] [address] [place] [address] * (ABNORMAL) CBC W/O Differential (10/19/2024 8:25 [...] Final Result [facility] [address] [place] [address] * (ABNORMAL) POCT glucose meter (10/19/2024 7:35 [...] Comment 10/19/2024 7:37 AM EDT [facility]ALTHCARE LAB Sql Data Architect ID KamranJob 10/20/19 7:37 AM EDT HEALTHCARE LAB Device ID [id number] 10/19/2024 7:37 AM EDT HEALTH[facility]ARE LAB Specimen Type POC Capillary 10/19/2024 7:37 AM EDT [facility]ARE [facility] Blood Capillary blood specimen / Unknown 10/19/2024 7:35 AM EDT 10/19/2024 7:37 AM EDT Terrell Gautam MD LAB POINT OF CARE TE ST DOCKED DEVICE UNSOLICITED RESULTS Final Result Performing Organization Address City/[facility] Co de Phone Number [facility] [address] [place] [address] * (ABNORMAL) POCT glucose meter (10/18/2024 7:22 [...] Comment 10/18/2024 7:24 PM EDT HEALTHCARE LAB Sql Data Architect ID Mahesh Aldana 10/18/2024 7:24 PM EDT [facility] Device ID [id number] 10/18/2024 7:24 PM EDT HEALTHCARE LAB Specimen Type POC Capillary 10/18/2024 7:24 PM EDT [facility]ARE LAB Blood Capillary blood specimen / Unknown 10/18/2024 7:22 PM EDT 10/18/2024 7:24 PM EDT Terrell Gautam MD LAB POINT OF CARE TE ST DOCKED DEVICE UNSOLICITED RESULTS Final Result Performing Organization Address City/[facility]/ZIP Co de Phone Number [facility] [address] [place] [address] * (ABNORMAL) POCT glucose meter (10/18/2024 6:07 [...] Comment 10/18/2024 6:09 PM EDT HEALTHCARE LAB Sql Data Architect ID David Parks 10/18/2024 6:09 PM EDT HEALTHCARE LAB Device ID [id number] 10/18/2024 6:09 PM EDT HEALTHCARE LAB Specimen Type POC Capillary 10/18/2024 6:09 PM EDT [facility] Blood Capillary blood specimen / Unknown 10/18/2024 6:07 PM EDT 10/18/2024 6:09 PM EDT us Terrell Gautam MD LAB POINT OF CARE TE ST DOCKED DEVICE UNSOLICITED RESULTS Final Result Performing Organization Address City/State/[facility] Co de Phone Number [facility]ALTH[facility]ARE LAB [address] [place] [address] * (ABNORMAL) POCT glucose meter (10/18/2024 11:56 AM EDT) [facility] POCT Glucose 233(H) 74 - 99 mg/dL [...] Comment 10/21/2024 7:42 AM EDT HEALTHCARE LAB Sql Data Architect ID Venessa Marcano 10/21/2024 7:42 AM EDT HEALTHCARE LAB Device ID [id number] 10/21/2024 7:42 AM EDT HEALTHCARE LAB Specimen Type POC Capillary 10/21/2024 7:42 AM EDT [facility]ARE LAB Blood Capillary blood specimen / Unknown 10/18/2024 11:56 AM EDT 10/21/2024 7:42 AM EDT us Terrlel Gautam MD LAB POINT OF CARE TE ST DOCKED DEVICE UNSOLICITED RESULTS Final Result Performing Organization Address City/[facility]/ZIP Co de Phone Number [facility] [address] [place] [address] * (ABNORMAL) POCT glucose meter (10/18/2024 9:24 AM EDT) Pathologist [facility] POCT Glucose 322(H) 74 - 99 [...] Comment 10/21/2024 7:42 AM EDT HEALTHCARE LAB Sql Data Architect ID Emilia Alonso 7:42 AM EDT HEALTHCARE LAB Device ID [id number] 10/21/2024 7:42 AM EDT [facility] Specimen Type POC Venous 10/21/2024 7:42 AM EDT [facility] Blood Venous blood specimen / Unknown 10/18/2024 9:24 AM EDT 10/21/2024 7:42 AM EDT Terrell Gautam MD LAB POINT OF CARE TE ST DOCKED DEVICE UNSOLICITED RESULTS Final Result Performing Organization Address City/[facility] Co de Phone Number [facility] [address] [place] [address] * (ABNORMAL) POCT glucose meter (10/18/2024 7:36 AM EDT) [facility] POCT Glucose 215(H) 74 - [...] 10/18/2024 7:38 AM EDT [facility] Sql Data Architect ID Kizzy Godfrey 025 7:38 AM EDT HEALTHCARE LAB Device ID [id number] 10/18/2024 7:38 AM EDT HEALTHCARE LAB Specimen Type POC Capillary 10/18/2024 7:38 AM EDT HEALTH[facility]ARE LAB Blood Capillary blood specimen / Unknown 10/18/2024 7:36 AM EDT 10/18/2024 7:38 AM EDT us Terrell Gautam MD LAB POINT OF CARE TE ST DOCKED DEVICE UNSOLICITED RESULTS Final Result [facility] [address] [place] [address] * (ABNORMAL) CBC (10/18/2024 2:09 AM EDT) [...] Final Result [facility] [address] [place] [address] * (ABNORMAL) Basic metabolic panel (10/18/2024 2:09 [...] Organization Address City/[facility]/ZIP Co de Phone Number [facility] [address] [place] [address] * (ABNORMAL) Magnesium (10/18/2024 2:09 AM EDT) Magnesium, Plasma 1.8(L) 1.9 - 2.4 mg/dL 10/18/2024 2:53 AM EDT [facility] Blood Venous blood specimen / Unknown Venipuncture / Unknown 10/18/2024 2:09 AM EDT 10/18/2024 2:25 AM EDT Nirmal Cueto MD LAB BLOOD ORDERABLES Final Result Performing Organization Address [facility] Co de Phone Number [facility] [address] [place] [address] * Phosphorus (10/18/2024 2:09 AM EDT) Phosphorus, Plasma 3.7 2.5 - 4.5 mg/dL 10/18/2024 2:53 AM EDT [facility] Blood Venous blood specimen / Unknown Venipuncture / Unknown 10/18/2024 2:09 AM EDT 10/18/2024 2:25 AM EDT us Nirmal Cueto MD LAB BLOOD ORDERABLES Final Result Performing Organization Address City/[facility] Co de Phone Number [facility] [address] [place] [address] * (ABNORMAL) Protime-INR (10/18/2024 2:09 AM EDT) [facility] Prothrombin Time 14.5(H) 12.0 - 14.3 sec [...] INR 2.5 to 3.5 Prevention of recurrent [place] INR 2.5 to 3.5 Nirmal Cueto MD LAB BLOOD ORDERABLES Final Result [facility] [address] [place] [address] * (ABNORMAL) POCT glucose meter (10/18/2024 2:08 AM EDT) [facility] POCT Glucose 202(H) 74 - [...] Comment 10/18/2024 2:10 AM EDT HEALTHCARE LAB Sql Data Architect ID Cornelio WALTERS Jourdan 10/18/2024 2:10 AM EDT [facility] Device ID [id number] 10/18/2024 2:10 AM EDT [facility] Specimen Type POC Capillary 10/18/2024 2:10 AM EDT [facility] Blood Capillary blood specimen / Unknown 10/18/2024 2:08 AM EDT 10/18/2024 2:10 AM EDT Terrell Gautam MD LAB POINT OF CARE TE ST DOCKED DEVICE UNSOLICITED RESULTS Final Result Performing Organization Address [facility] Co de Phone Number HEALTHCARE LAB [address] [place] [address] * (ABNORMAL) POCT glucose meter (10/17/2024 10:07 PM EDT) [facility] POCT Glucose 300(H) 74 - [...] Comment 10/17/2024 10:10 PM EDT HEALTHCARE LAB Sql Data Architect ID Jourdan Grimes II 10/17/2024 10:10 PM EDT HEALTHCARE LAB Device ID [id number] 10/17/2024 10:10 PM EDT [facility] Specimen Type POC Capillary 10/17/2024 10:10 PM EDT [facility] LAB Blood Capillary blood specimen / Unknown 10/17/2024 10:07 PM EDT 10/17/2024 10:10 PM EDT Terrell Gautam MD LAB POINT OF CARE TE ST DOCKED DEVICE UNSOLICITED RESULTS Final Result Performing Organization Address City/[facility] Co de Phone Number [facility] [address] [place] [address] * (ABNORMAL) POCT glucose meter (10/17/2024 8:07 PM EDT) [facility] POCT Glucose 391(H) 74 - 99 mg/dL [...] 10/17/2024 8:10 PM EDT [facility] Sql Data Architect ID Jourdan Grimes II 10/17/2024 8:10 PM EDT HEALTHCARE LAB Device ID [id number] 10/17/2024 8:10 PM EDT HEALTHCARE LAB Specimen Type POC Capillary 10/17/2024 8:10 PM EDT HEALTHCARE LAB Blood Capillary blood specimen / Unknown 10/17/2024 8:07 PM EDT 10/17/2024 8:10 PM EDT us Terrell Gautam MD LAB POINT OF CARE TE ST DOCKED DEVICE UNSOLICITED RESULTS Final Result Performing Organization Address City/State/[facility] Phone Number HEALTHCARE LAB [address] [place] [address] * (ABNORMAL) POCT glucose meter (10/17/2024 4:01 PM EDT) [facility] POCT Glucose 249(H) 74 - 99 mg/dL [...] Comment 10/17/2024 4:03 PM EDT HEALTHCARE LAB Sql Data Architect ID Keisha Waller 10/17/2024 4:03 PM EDT HEALTHCARE LAB Device ID [id number] 10/17/2024 4:03 PM EDT HEALTHCARE LAB Specimen Type POC Capillary 10/17/2024 4:03 PM EDT HEALTHCARE LAB Blood Capillary blood specimen / Unknown 10/17/2024 4:01 PM EDT 10/17/2024 4:03 PM EDT us Terrell Gautam MD LAB POINT OF CARE TE ST DOCKED DEVICE UNSOLICITED RESULTS Final Result HEALTHCARE LAB [address] [place] [address] * (ABNORMAL) POCT glucose meter (10/17/2024 1:25 PM EDT) [facility] POCT Glucose 225(H) 74 - [...] Comment 10/17/2024 1:27 PM EDT HEALTHCARE LAB Sql Data Architect ID Kizzy Godfrey 025 1:27 PM EDT HEALTHCARE LAB Device ID [id number] 10/17/2024 1:27 PM EDT HEALTHCARE LAB Specimen Type POC Capillary 10/17/2024 1:27 PM EDT HEALTHCARE LAB Blood Capillary blood specimen / Unknown 10/17/2024 1:25 PM EDT 10/17/2024 1:27 PM EDT us Terrell Gautam MD LAB POINT OF CARE TE ST DOCKED DEVICE UNSOLICITED RESULTS Final Result Performing Organization Address [facility] Co de Phone Number HEALTHCARE LAB [address] [place] [address] * [place] Less than 1 Hour Intraoperative (10/17/2024 1:18 PM EDT) Narrative IMAGING - 10/17/2024 2:05 PM EDT Images were obtained for surgical purposes. See Terrell Gautam's surgical note in the patient's chart for the findings. us Terrell Gautam MD IMG FLUOROSCOPY PROCEDURES Fi nal Result Performing Organization Address [facility] Co de Phone Number IMAGING * POCT ACT (10/17/2024 12:23 PM EDT) [facility] ACT+ (HIGH RANGE) 211 68 - 600 Seconds 10/29/2024 7:28 AM EDT [facility] Sql Data Architect ID Donna Mcmillan 10/29/2024 7:28 AM EDT HEALTHCARE LAB ACT Device ID [id number] 10/29/2024 7:28 AM EDT [facility] Comment 10/29/2024 7:28 AM EDT [facility] [...] UNSOLICITED RESULTS Final Result HEALTHCARE LAB [address] LAB [address] [place] [address] * (ABNORMAL) Blood gas, arterial (10/17/2024 11:48 [...] 10/17/2024 11:53 AM EDT us Jenna Lopez [facility] LAB BLOOD ORDERABLES Final Re sult [facility] [address] [place] [id number] * POCT ACT (10/17/2024 11:41 AM EDT) ACT+ (HIGH RANGE) 175 68 - 600 Seconds 10/29/2024 7:28 AM EDT HEALTHCARE LAB Sql Data Architect ID Oneyda Alicea 10/29/2024 7:28 AM EDT HEALTHCARE LAB ACT Device ID [id number] 10/29/2024 7:28 AM EDT HEALTHCARE LAB Comment [...] UNSOLICITED RESULTS Final Result Performing Organization Address [facility] Co de Phone Number HEALTHCARE LAB [address] LAB [address] [place] [address] * POCT ACT (10/17/2024 11:11 AM EDT) ACT+ (HIGH RANGE) 252 68 - 600 Seconds 10/29/2024 7:28 AM EDT HEALTHCARE LAB Sql Data Architect ID Donna Mcmillan 10/29/2024 7:28 AM EDT HEALTHCARE LAB ACT Device ID [id number] 10/29/2024 7:28 AM EDT HEALTHCARE LAB Comment [...] Organization Address City/[facility] Co de Phone Number HEALTHCARE LAB [address] LAB [address] [place] [address] * (ABNORMAL) Blood gas, arterial (10/17/2024 10:46 [...] Re sult [facility] [address] [place] [address] * POCT ACT (10/17/2024 10:37 AM EDT) ACT+ (HIGH RANGE) 206 68 - 600 Seconds 10/29/2024 7:28 AM EDT HEALTHCARE LAB Sql Data Architect ID Donna Mcmillan 10/29/2024 7:28 AM EDT HEALTHCARE LAB ACT Device ID [id number] 10/29/2024 7:28 AM EDT HEALTHCARE LAB Comment [...] Co de Phone Number HEALTHCARE LAB [address] LAB [address] [place] [address] * Surgical Pathology Exam (10/17/2024 10:27 AM EDT) Case Report Surgical Pathology Case: [id number] Authorizing Provider: Terrell Gautam MD Collected: 10/17/2024 1027 Ordering Location: [facility]PERATING [facility] Received: 10/17/2024 1325 Pathologist: [...] cm. The specimen is serially sectioned and artist representative sections are submitted in cassette A1. Cold Time: <1m Kenia Pastor Yola 10/21/2024 10:16 AM EDT [facility] [...] ORDERABLES Gwen l Result Performing Organization Address City/[facility] Co de Phone Number [facility] [address] [place] [address] * POCT ACT (10/17/2024 10:03 AM EDT) ACT+ (HIGH RANGE) 244 68 - 600 Seconds 10/29/2024 7:28 AM EDT HEALTHCARE LAB Sql Data Architect ID Donna Mcmillan 10/29/2024 7:28 AM EDT [facility] ACT Device ID [id number] 10/29/2024 7:28 AM EDT [facility] Comment 10/29/2024 7:28 AM EDT [facility] [...] Organization Address City/[facility] Co de Phone Number [facility] [address] LAB [address] [place] [address] * (ABNORMAL) Blood gas, arterial (10/17/2024 9:45 [...] Re sult [facility] [address] [place] [address] * (ABNORMAL) Blood gas, arterial (10/17/2024 8:47 [...] Re sult [facility] [address] [place] [address] * POCT ACT (10/17/2024 8:46 AM EDT) ACT+ (HIGH RANGE) 101 68 - 600 Seconds 10/29/2024 7:28 AM EDT HEALTHCARE LAB Sql Data Architect ID Donna Mcmillan 10/29/2024 7:28 AM EDT [facility] ACT Device ID [id number] 10/29/2024 7:28 AM EDT HEALTHCARE LAB Comment [...] Organization Address City/[facility]/ZIP Co de Phone Number [facility] [address] LAB [address] [place] [address] * Type and Screen (10/17/2024 7:19 AM EDT) ABO/Rh A Negative 10/17/2024 7:04 AM EDT BLOOD BANK Antibody Screen Negative 10/17/2024 7:04 AM EDT BLOOD BANK Specimen Expiration 10/20/2024 23:59 10/17/2024 7:04 AM EDT BLOOD BANK Blood Venous blood specimen / Unknown Venipuncture / Unknown 10/17/2024 7:19 AM EDT 10/17/2024 7:28 AM EDT Maria eFrnanda Mccallum MD LAB BLOOD BANK TEST ORDERAB LES Final Result BLOOD BANK [address] [place] [address], * (ABNORMAL) POCT glucose meter (10/17/2024 6:44 AM EDT) [facility] POCT Glucose 178(H) 74 - [...] 10/17/2024 6:49 AM EDT [facility] Sql Data Architect ID Hunter Burroughs 10/18/19 6:49 AM EDT [facility] Device ID [id number] 10/17/2024 6:49 AM EDT [facility] Specimen Type POC Capillary 10/17/2024 6:49 AM EDT HEALTHCARE LAB Blood Capillary blood specimen / Unknown 10/17/2024 6:44 AM EDT 10/17/2024 6:49 AM EDT us Terrell Gautam MD LAB POINT OF CARE TE ST DOCKED DEVICE UNSOLICITED RESULTS Final Result [facility] [address] [place] [address] documented in this encounter Visit Diagnoses Diagnosis [...] RN)2001 (Given - Provider: Kassie Mao, CHRISTIAN) 0952 (Given - Provider: Keyla Chow) sodium chloride 0.9 % flush 10 mL (CANCELED)(Linked Group 1) 10 mL, Intravenous, Every 12 hours, First dose on Yadira 10/17/24 at 0745, Until Discontinued, Routine, Holding - Preprocedure 07 (Given - Provider: Tanja Denise RN)1944 (Given - Provider: Jourdan Grimes II CHRISTIAN) 0761 (Canceled Entry - Provider: Emilia Alonso RN) [...] Waller, RN)2302 (Given - Provider: Jourdan Grimes II RN) [...] documented as of this encounter Care Teams Bobj Developer Relationship Specialty Start Date End Date Asad Victor MD [address] [place] [address] PCP - General 10/07/22 documented as of this encounter
[2024-11-05] VITALS (18 sets, daily range): BP systolic 113–159; BP diastolic 47–96; PULSE 68–81; RESP 14–17; TEMP 37; O2SAT 94–99; BMI 33.2
--- OUTSIDE RECORDS SUMMARY | 2024-11-05 11:47 | XMS_ITS | Encounter Summary ---
Author Organization Healthcare Address [address] [id number] Care Team Providers Care Extrusion Engineer Name Role Phone Asad Victor MD Primary Care Provider + [phone] Encounter Details Date Type Department Care Team ([facility] st Contact Info) Description 09/21/2024 Orders Only External Location [address] [place] [address] Provider, External Social History Tobacco Use Types Packs/Day Years [...] drink first t dino in the morning (EYE-DERRICK FOLLOWER) to steady your nerves or to get rid of a hangover? 0 10/18/2021 CAGE Questionnaire Score 0 022 Sex and Gender Information Value Date Recorded Sex Assigned at Not on file Legal Sex Male 8:57 PM EDT Gender Identity Not on file Sexual Orientation Not on file documented as of this encounter Functional Status * Calculated C-SSRS Risk Score (Lifetime/Recent) Answer Date of Assessment Author No Risk Indicated 09/22/2024 8:10 AM EDT Melecio Zuleta, CHRISTIAN * Question Answer Date of Assessment Author 1. Wish to be (Past 1 Month) No 025 8:10 AM EDT Melecio Vega, CHRISTIAN 2. Non-Specific Active Suici marcelle Thoughts (Past 1 Month) No 09/22/2024 8:10 AM EDT Apollo Vega RN 6. Suicidal Behavior (Lifetime) No 8:10 AM EDT Melecio Vega, CHRISTIAN documented as of this encounter Plan of Treatment Upcoming Encounters Date Type Department Care Team (Late st Contact Info) Description 11/26/2024 2:00 PM EDT Appointment [facility] [address] [place] [address] 11/26/2024 2:30 PM EDT Appointment [facility] [address] [place] [address] 11/26/2024 3:20 PM EDT Office Visit [facility] [address] [facility] 5th Floor [address] [place] [address] Elisabet Schuster, PA [address] [place] [address] documented as of this encounter Procedures Procedure Name Priority Date/Time Associated Diagnosis Comments IR OUTSIDE IMAGES 09/21/2024 3:29 AM EDT documented in this encounter Results * IR OUTSIDE IMAGES (09/21/2024 3:29 AM EDT) Anatomical Region Laterality Modality X-Ray Angiograph y 09/21/2024 3:29 AM EDT us External Provider IMG IR PROCEDURES Final Result documented in this encounter Visit Diagnoses Not on filedocumented in this encounter Additional Health Concerns Assessment Noted Time A Body Mass Index follow-up plan has been documented for the patient 09/22/2024 2:53 PM EDT documented as of this encounter Care Teams Extrusion Engineer Relationship Specialty Start Date End Date Asad Victor MD [address] [place] [address] PCP - General 10/07/22 documented as of this encounter
--- OUTSIDE RECORDS SUMMARY | 2024-11-05 11:47 | XMS_ITS | Encounter Summary ---
Author Organization Healthcare Address [address] [place] [address] Care Team Providers Care Poultry Hatchery Manager Name Role Phone Asad Victor MD Primary Care Provider + [phone] Encounter Details Date Type Department Care Team (Latest Contact Info) Description 09/21/2024 Travel Social History Tobacco Use Types Packs/Day Years [...] drink first t dino in the morning (EYE-VICE ADMIRAL) to steady your nerves or to get rid of a hangover? 0 10/18/2021 CAGE Questionnaire Score 0 022 Sex and Gender Information Value Date Recorded Sex Assigned at Not on file Legal Sex Male 8:57 PM EDT Gender Identity Not on file Sexual Orientation Not on file documented as of this encounter Plan of Treatment Upcoming Encounters Date Type Department Care Team (Late st Contact Info) Description 11/26/2024 2:00 PM EDT Appointment [facility] [address] [place] [address] 11/26/2024 2:30 PM EDT Appointment [facility] [address] [place] [address] 11/26/2024 3:20 PM EDT Office Visit [facility] [address] [place] [address] Elisabet Schuster, PA [address] [facility] [address] [place] [address] documented as of this encounter Visit Diagnoses Not on filedocumented in this encounter Additional Health Concerns Assessment Noted Time A Body Mass Index follow-up plan has been documented for the patient 09/22/2024 2:53 PM EDT documented as of this encounter Care Teams Poultry Hatchery Manager Relationship Specialty Start Date End Date Asad Victor MD [address] [place] [address] PCP - General 10/07/22 documented as of this encounter
--- OUTSIDE RECORDS SUMMARY | 2024-11-05 11:47 | XMS_ITS | Clinical Summary ---
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 Calcium, Plasma 9.1 8.9 - 10.2 mg/dL 09/20/2024 11:03 PM EDT [facility] Total Protein 6.6 6.3 - 7.9 g/dL 09/20/2024 11:03 PM EDT [facility] Albumin, Plasma 3.9 3.5 - 5.2 g/dL 09/20/2024 11:03 PM EDT [facility] AST, Plasma 11 10 - 50 U/L 09/20/2024 11:03 PM EDT [facility] ALT, Plasma 16 10 - 50 U/L 09/20/2024 11:03 PM EDT [facility] Alkaline Phosphatase, Plasma 132(H) 40 - 115 U/L 09/20/2024 11:03 PM EDT [facility] Total Bilirubin, Plasma 0.6 0.2 - 1.1 mg/dL 09/20/2024 11:03 PM EDT [facility] eGFRcr 91.1 mL/min/1.7 3m*2 09/20/2024 11:03 PM EDT [facility] Comment:Reported eGFRcr in m L/min/1.73m2 is based the CKD-EPI 2020 equation that does not use a race coefficient. Blood Venous blood specimen / Unknown Venipuncture / Unknown 09/20/2024 10:33 PM EDT 09/20/2024 10:42 PM EDT us Giorgi Perkins MD LAB BLOOD ORDERABLES Final Result [facility] [address] [place] [address] * CT OUTSIDE IMAGES (09/20/2024 3:39 PM EDT) Only the most recent of2 resultswithin the time period is included. Anatomical Region Laterality Modality Computed Tomogra phy 09/20/2024 3:39 PM EDT Timothy DOSHI IMG CT PROCEDURES Final Result * (ABNORMAL) Hemoglobin A1c (02/26/2019 11:17 AM [...] <6.0% Children and Adolescents <7.5% . Source: [place] [employer]. Standards of medical care in diabetes, 2017. Diabetes Care.2017:40 (suppl 1):S1-S135. . HbA1c assay performed by an ion-exchange chromatography method that is certified traceable to the DCCT. 02/26/2019 11:1 7 AM EST 02/26/2019 11:53 AM EST Asad Breaux MD LAB BLOOD ORDERABLES Final R esult SUNQUEST from Last 3 Months or Most Recently Relevant to Health Maintenance Additional Health Concerns Active Problems Noted Date Diagnosed Date Autogenerated Problem 09/23/2024 Insurance MEDICAID [facility] MEDICARE Advance Directives * Full Code (Latest Code Status on File) Date Activated Date Inactivated Comments 10/17/2024 1:08 PM 10/19/2024 2:39 PM Question Answer Comments I have reviewed the capacity from the link above and, if needed, have updated to appropriate status: Yes * Full Code Date Activated Date Inactivated Comments 09/21/2024 1:48 AM 09/22/2024 6:05 PM Question Answer Comments I have reviewed the capacity from the link above and, if needed, have updated to appropriate status: Yes * Full Code Date Activated Date Inactivated Comments 10/18/2021 8:18 PM 10/20/2021 2:26 PM Question Answer Comments Patient has decision-making capacity? Yes Care Teams Surgical Scrub Technologist Relationship Specialty Start Date End Date Asad Victor MD [address] [place] [address] PCP - General 10/07/22
--- OUTSIDE RECORDS SUMMARY | 2024-11-05 11:47 | XMS_ITS | Encounter Summary ---
Author Organization Healthcare Address [address] [place] [address] Care Team Providers Care Tow Operator Name Role Phone Asad Victor MD Primary Care Provider + [phone] Encounter Details Date Type Department Care Team (Latest Contact Info) Description 10/16/2024 Travel Social History Tobacco Use Types Packs/Day [...] first t dino in the morning (EYE-MEDICAL LEADER) to steady your nerves or to [...] Info) Description 11/26/2024 2:00 PM EDT Appointment [facility] [address] 5th Floor [address], [address] [place] [address] 11/26/2024 2:30 PM EDT Appointment [facility] [address] Floor [address] [place] [address] 11/26/2024 3:20 PM EDT Office Visit [facility] [address] [place] [address] Elisabet Schuster PA [address] [facility] [address] [place] [address] documented as of this encounter Goals Goal Patient Goal Type Associated Problems Recent Progress Patient-Stated? Author Autogenera louise Goal Care Plan Autogenerated Problem No Ekta Arnett documented as of this encounter Visit Diagnoses Not on filedocumented in this encounter Additional Health Concerns Active Problems Noted Date Diagnosed Date Autogenerated Problem 09/23/2024 Assessment Noted Time A Body Mass Index follow-up plan has been documented for the patient 09/22/2024 2:53 PM EDT documented as of this encounter Care Teams Tow Operator Relationship Specialty Start Date End Date Asad Victor MD [address] [place] [address] PCP - General 10/07/22 documented as of this encounter
--- OUTSIDE RECORDS SUMMARY | 2024-11-05 11:47 | XMS_ITS | Encounter Summary ---
Author Organization Healthcare Address [address] [place] [address] Care Team Providers Care Records Management Manager Name Role Phone Asad Victor MD Primary Care Provider + [phone] Encounter Details Date Type Department Care Team ([facility] st Contact Info) Description 09/20/2024 Orders Only External Location [address] [place] [phone] Timothy Marques PA [address] [place] [address] Social History Tobacco Use Types Packs/Day Years [...] drink first t dino in the morning (EYE-NETWORK CABLE INSTALLER) to steady your nerves or to get [...] [facility] [address] Floor [address], [address] [place] [address] 11/26/2024 2:30 PM EDT Appointment [facility] [address] Floor [address], [address] [place] [address] 11/26/2024 3:20 PM EDT Office Visit [facility] [address] Floor [address], [address] [place] [address] Elisabet Schuster PA [address] [facility] [address] [place] [address] documented as of this encounter Procedures Procedure Name Priority Date/Time Associated Diagnosis Comments CT OUTSIDE IMAGES 09/20/2024 2:58 PM EDT documented in this encounter Results * CT OUTSIDE IMAGES (09/20/2024 2:58 PM EDT) Anatomical Region Laterality Modality Computed Tomogra phy 09/20/2024 2:58 PM EDT Timothy [address] CT PROCEDURES Final Result documented in this encounter Visit Diagnoses Not on filedocumented in this encounter Additional Health Concerns Assessment Noted Time A Body Mass Index follow-up plan has been documented for the patient 09/22/2024 2:53 PM EDT documented as of this encounter Care Teams Records Management Manager Relationship Specialty Start Date End Date Asad Victor MD [address] [place] [address] PCP - General 10/07/22 documented as of this encounter
--- OUTSIDE RECORDS SUMMARY | 2024-11-05 11:47 | XMS_ITS | Encounter Summary ---
Author Organization Healthcare Address [address] [place] [address] Care Team Providers Care Beader Tender Name Role Phone Asad Victor MD Primary Care Provider + [phone] Encounter Details Date Type Department Care Team ([facility] st Contact Info) Description 09/20/2024 Orders Only External Location [address] [place] [phone] Timothy Marques PA [address] [place] [address] Social History Tobacco Use Types Packs/Day Years [...] drink first t dino in the morning (EYE-SPINE NURSE) to steady your nerves or to get [...] Info) Description 11/26/2024 2:00 PM EDT Appointment [facility] Lab [address] Floor [address], [address] [place] [address] 11/26/2024 2:30 PM EDT Appointment [facility] [address] Floor [address] [place] [address] 11/26/2024 3:20 PM EDT Office Visit [facility] [address] Floor [address] [place] [address] Elisabet Schuster PA [address] [facility] [address] [place] [address] documented as of this encounter Procedures Procedure Name Priority Date/Time Associated Diagnosis Comments CT OUTSIDE IMAGES 09/20/2024 3:39 PM EDT documented in this encounter Results * CT OUTSIDE IMAGES (09/20/2024 3:39 PM EDT) Anatomical Region Laterality Modality Computed Tomogra phy 09/20/2024 3:39 PM EDT Timothy [address]ESMA CT PROCEDURES Final Result documented in this encounter Visit Diagnoses Not on filedocumented in this encounter Additional Health Concerns Assessment Noted Time A Body Mass Index follow-up plan has been documented for the patient 09/22/2024 2:53 PM EDT documented as of this encounter Care Teams Beader Tender Relationship Specialty Start Date End Date Asad Victor MD [address] [place] [address] PCP - General 10/07/22 documented as of this encounter
--- OUTSIDE RECORDS SUMMARY | 2024-11-05 11:47 | XMS_ITS | Encounter Summary ---
Author Organization Healthcare Address [address] [place] [address] Care Team Providers Care Traffic Maintenance Supervisor Name Role Phone Asad Victor MD Primary Care Provider + [phone] Encounter Details Date Type Department Care Team (Latest Contact Info) Description 09/20/2024 Travel Social History Tobacco Use Types Packs/Day [...] drink first t dino in the morning (EYE-SIZER HAND) to steady your nerves or to [...] Date of Assessment Author No Risk Indicated 09/20/2024 11:05 PM EDT Ana Maria Hammer * Question Answer Date of Assessment Author 1. Wish to be (Past 1 Month) No 025 11:05 PM EDT Ana Maria Corea 2. Non-Specific Active Suici marcelle Thoughts (Past 1 Month) No 09/20/2024 11:05 PM EDT Angelica Corea 6. Suicidal Behavior (Lifetime) No 11:05 PM EDT Ana Maria Corea documented as of this encounter Plan of Treatment Upcoming Encounters Date Type Department Care Team (Late st Contact Info) Description 11/26/2024 2:00 PM EDT Appointment [facility] [address] [facility] 5th Floor Wing [address], [address] [place] [address] 11/26/2024 2:30 PM EDT Appointment [facility] [address] [facility] 5th Floor Wing [address], [address] [place] [address] 11/26/2024 3:20 PM EDT Office Visit [facility] [address] [facility] 5th Floor [address], [address] [place] [address] Elisabet Schuster, PA [address] [place] [address] [place] [address] documented as of this encounter Visit Diagnoses Not on filedocumented in this encounter Additional Health Concerns Assessment Noted Time A Body Mass Index follow-up plan has been documented for the patient 09/22/2024 2:53 PM EDT documented as of this encounter Care Teams Traffic Maintenance Supervisor Relationship Specialty Start Date End Date Asad Victor MD [address] [place] [address] PCP - General 10/07/22 documented as of this encounter
--- OUTSIDE RECORDS SUMMARY | 2024-11-05 11:48 | XMS_ITS | Encounter Summary ---
Author Organization Healthcare Address [address] [place] [address] Care Team Providers Care Supervising Chef Name Role Phone Asad Victor MD Primary Care Provider + [phone] Encounter Details Date Type Department Care Team (Latest Contact Info) Description 10/11/2024 Travel Social History Tobacco Use Types Packs/Day [...] drink first t dino in the morning (EYE-CAKE ICER AND PACKER) to steady your nerves or to get [...] Appointment [facility] [address] 5th Floor [address] [place] [address] 11/26/2024 2:30 PM EDT Appointment [facility] Lab [address] Floor [address], [address] [place] [address] 11/26/2024 3:20 PM EDT Office Visit [facility] Clinic [address] [place] [address] Elisabet Schuster PA [address] [facility] [address] [place] [address] documented as of this encounter Goals Goal [...] documented as of this encounter Care Teams Supervising Chef Relationship Specialty Start Date End Date Asad Victor MD [address] [place] [address] PCP - General 10/07/22 documented as of this encounter
--- OUTSIDE RECORDS SUMMARY | 2024-11-05 11:48 | XMS_ITS | Encounter Summary ---
Author Organization Healthcare Address [address] [place] [address] Care Team Providers Care Pricing/Signage Team Member Name Role Phone Asad Victor MD Primary Care Provider + [phone] Encounter Details Date Type Department Care Team (Latest Contact Info) Description 10/17/2024 Travel Social History Tobacco Use Types Packs/Day [...] any time in the past 12 m [facility], were you homeless or [...] drink first t dino in the morning (EYE-UPHOLSTERY TECHNICIAN) to steady your nerves or to [...] Info) Description 11/26/2024 2:00 PM EDT Appointment [facility] [address] Floor [address] [place] [address] 11/26/2024 2:30 PM EDT Appointment [facility] [address] [place] [address] 11/26/2024 3:20 PM EDT Office Visit [facility] [address] [facility] 5th Floor [address] [place] [address] Elisabet Schuster, GLENDA [address] [facility] [address] [place] [address] documented as of this encounter [...] documented as of this encounter Care Teams Pricing/Signage Team Member Relationship Specialty Start Date End Date Asad Victor MD [address] [place] [address] PCP - General 10/07/22 documented as of this encounter
--- OUTSIDE RECORDS SUMMARY | 2024-11-05 11:48 | XMS_ITS | Encounter Summary ---
Author Organization Healthcare Address [address] [id number] Care Team Providers Care Display Carver Name Role Phone Asad Victor MD Primary Care Provider + [phone] Encounter Details Date Type Department Care Team (Late st Contact Info) Description 10/22/2024 Telephone Vascular Surgery [address] [place] [address] Alison Beltrán, SURFACE WATER MANAGER, DNP [address] [facility] [address] [place] [address] Social History Tobacco Use Types Packs/Day Years [...] any time in the past 12 m [facility], were you homeless or living in [...] first t dino in the morning (EYE-REGIONAL MEDICAL DIRECTOR) to steady your nerves or to [...] as of this encounter Miscellaneous Notes * Telephone Encounter - Alison Beltrán, SURFACE WATER MANAGER, DNP - 10/22/2024 11:39 AM EDT Returned patient call. Patient s/p left common/superficial/profunda femoral thromboendarterectomy with bovine patch repair and left external iliac artery/METALSMITH APPRENTICE stent with Dr Gautam on 10/17/24. Patient stating I don't know what to do with this tube hooked to my leg. I educated him about his prevena i ncisional wound vac and specific instructions on how to remove the dressing tomorrow. I educated that he should be washing incisions with soap and water daily and not applying any creams, ointments or gels. He's going to call back after he removes the dressing tomorrow if he has any concerns. Otherwise, patient denies nausea, vomiting, fever, chills. Overall feels well and agreed to call back with any questions or concerns. Time Spent: I personally spent a total of 15 minutes on this encounter. This time includes phone call with patient, time allowed for questions and discussion, medical chart reviews and interpretationof labs. Counseling and discussion and/or coordination of care. Electronically Signed by: Alison Beltrán APRN, DNP - 10/22/2024 - 11:46 AM documented in this encounter Plan of Treatment Upcoming Encounters Date Type Department Care Team (Late st Contact Info) Description 11/26/2024 2:00 PM EDT Appointment [facility] Lab [address] [place] [address] 11/26/2024 2:30 PM EDT Appointment [facility] Lab [address] [place] [address] 11/26/2024 3:20 PM EDT Office Visit [facility] Clinic [address] [place] [address] [address], [address] [address] Elisabet Schuster PA [address] [facility] [address] [place] [address] documented as of this encounter Goals Goal [...] documented as of this encounter Care Teams Display Carver Relationship Specialty Start Date End Date Asad Victor MD [address] [place] [address] PCP - General 10/07/22 documented as of this encounter
--- OUTSIDE RECORDS SUMMARY | 2024-11-05 11:48 | XMS_ITS | Encounter Summary ---
Author Organization Healthcare Address [address] [place] [address] Care Team Providers Care Economic Analyst Name Role Phone Asad Victor MD Primary Care Provider + [phone] Encounter Details Date Type Department Care Team (Late st Contact Info) Description 10/17/2024 Orders Only External Location [address] [place] [address] Provider, External Social History Tobacco Use Types [...] were you homeless or living in a chcf (including now)? No 10/18/2024 CAGE ASSESSMENT Answer [...] drink first t dino in the morning (EYE-TWISTER DOFFER) to steady your nerves or to get rid of a hangover? 0 10/18/2021 CAGE Questionnaire Score 0 022 Utilities Answer Date Recorded In the past 12 months has th e [employer], gas, oil, or water company threatened to [...] Risk Indicated 10/18/2024 8:30 PM EDT Kassie Mao, RN * Question Answer Date of Assessment Author 1. Wish to be (Past 1 Month) No 10/18/2024 8:30 PM EDT Kassie Mao, RN 2. Non-Specific Active Suici marcelle Thoughts (Past 1 Month) No 10/18/2024 8:30 PM EDT Rema Mao RN 6. Suicidal Behavior (Lifetime) No 8:30 PM EDT Kassie Mao, RN documented as of this encounter Plan of Treatment Upcoming Encounters Date Type Department Care Team (Late st Contact Info) Description 11/26/2024 2:00 PM EDT Appointment [facility] [address] [place] [address] 11/26/2024 2:30 PM EDT Appointment [facility] [address] [place] [address] 11/26/2024 3:20 PM EDT Office Visit [facility] [address] [place] [address] Elisabet Schuster PA [address] [place] [address] [place] [address] documented as of this encounter Goals Goal Patient Goal Type Associated Problems Recent Progress Patient-Stated? Author Autogenera louise Goal Care Plan Autogenerated Problem No Ekta Arnett documented as of this encounter Procedures Procedure Name Priority Date/Time Associated Diagnosis Comments POC ULTRASOUND 10/17/2024 documented in this encounter Results * POC Imaging (10/17/2024) Anatomical Region Laterality Modality Pelvis Other 10/17/2024 us External Provider IMG POINT OF CARE ULTRASOUND F inal Result documented in this encounter Visit Diagnoses Not on filedocumented in this encounter Additional Health Concerns Active Problems Noted Date Diagnosed Date Autogenerated Problem 09/23/2024 Assessment Noted Time A Body Mass Index follow-up plan has been documented for the patient 10/19/2024 11:46 AM EDT documented as of this encounter Care Teams Economic Analyst Relationship Specialty Start Date End Date Asad Victor MD [address] [id number] PCP - General 10/07/22 documented as of this encounter
--- OUTSIDE RECORDS SUMMARY | 2024-11-05 11:49 | XMS_ITS | Encounter Summary ---
Author Organization Healthcare Address [address] [place] [address] Care Team Providers Care Worldwide Chief Creative Officer Name Role Phone Asad Victor MD Primary Care Provider + [phone] Encounter Details Date Type Department Care Team (Latest Contact Info) Description 09/22/2024 Travel Social History Tobacco Use Types Packs/Day [...] drink first t dino in the morning (EYE-WOOL CLASSER) to steady your nerves or to get [...] Month) No 09/22/2024 8:10 AM EDT Apollo Vega, CHRISTIAN 6. Suicidal Behavior (Lifetime) No 8:10 AM EDT Melecio Vega, CHRISTIAN documented as of this encounter Plan of Treatment Upcoming Encounters Date Type Department Care Team (Late st Contact Info) Description 11/26/2024 2:00 PM EDT Appointment [facility] [address] [facility] 5th Floor [address], [address] [place] [address] 11/26/2024 2:30 PM EDT Appointment [facility] [address] [facility] 5th Floor [address], [address] [place] [address] 11/26/2024 3:20 PM EDT Office Visit [facility] [address] 5th Floor [address] [place] [address] Elisabet Schuster PA [address] [place] [address] documented as of this encounter Visit Diagnoses Not on filedocumented in this encounter Additional Health Concerns Assessment Noted Time A Body Mass Index follow-up plan has been documented for the patient 09/22/2024 2:53 PM EDT documented as of this encounter Care Teams Worldwide Chief Creative Officer Relationship Specialty Start Date End Date Asad Victor MD [address] [place] [address] PCP - General 10/07/22 documented as of this encounter
--- NOTE | 2024-11-05 12:04 | CT_ITS ---
FINAL REPORT TECHNIQUE: Post contrast axial imaging of the aorta and bilateral lower extremity was obtained and reviewed.This study was performed with techniques to keep radiation doses as low as reasonably achievable (ALARA). Individualized dose reduction techniques using automated exposure control or adjustment of mA and/or kV according to the patient''s size were employed. CLINICAL HISTORY: recent LLE vascular surgery; concern for infection COMPARISON: 09/20/2024 FINDINGS: There is no abdominal aortic aneurysm or dissection. Mesenteric vessels, including the YOLIS are patent. Bilateral renal arteries are patent. There is a left common iliac stent. There is mild stenosis of the right common iliac artery. Bilateral internal and external iliac arteries are patent. Right lower extremity: Right common femoral artery, superficial femoral artery and profunda are patent. There is mild atherosclerotic disease with areas of mild to moderate stenosis which are unchanged. Right popliteal artery is patent. Proximal tibial artery is occluded, unchanged. Calf vessels are otherwise patent. Left lower extremity: Previously seen pseudoaneurysm of the left groin is no longer present. Fluid in the air is seen within the left groin at the site of previous pseudoaneurysm. Collection measures 3 x 3 cm. Abscess not excluded. 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 Profunda and anterior collaterals are unchanged. There is reconstitution of the distal SFA above the knee. Appearance of the calf veins is unchanged from prior exam. Abdomen and pelvis: No acute abnormality is seen of the solid abdominal organs. There is no evidence of bowel obstruction. There is no abdominal or pelvic lymphadenopathy or ascites. Subcutaneous air and abnormal attenuation is seen within the anterior abdominal wall of the left lower quadrant. Air extends to the collection in the groin. Just above the knee within the medial soft tissues of the distal left thigh is a new, partially loculated air and fluid collection measuring 3.3 x 1.8 cm. Fluid extends through the adductor hiatus. IMPRESSION: 1. Previously seen left inguinal pseudoaneurysm no longer identified. Now with a partially loculated fluid and air collection with inflammatory changes extending to the left lower quadrant. Findings could represent developing abscess. 2. New, partially loculated air and fluid collection in the medial distal left thigh, developing abscess a concern. Reviewed, Interpreted and Dictated by Rossana Feng MD Transcribed by Sowmya Smiley Authenticated and [facility]
--- NOTE | 2024-11-05 12:07 | HMH.EDGENADL ---
Discharge Plan Disposition Patient Disposition: Home, Self-Care Prescriptions Prescriptions: No Action rivaroxaban [Xarelto] 2.5 mg tablet 2.5 mg PO BID Qty: 180 1RF docusate sodium [Colace] 100 mg capsule 100 mg PO DAILY Qty: 30 2RF insulin lispro protamin-lispro [Humalog Mix 75-25 KwikPen] 100 unit/mL (75-25) insulin pen 15 unit SQ BID nitroglycerin 0.4 mg tablet, sublingual 0.4 mg sublingual Q5-15M PRN (Reason: chest pain) Qty: 30 1RF Rx Instructions: do not exceed 3 doses per episode (DME) Dexcom G6 Stack Attendant Misc See Rx Instructions .Route Qty: 1 0RF Rx Instructions: As directed to test sugar change every 90 days. e11.9 (DME) insulin syringe-needle U-100 [BD Insulin Syringe Ultra-Fine] 1 mL 31 gauge x 5/16 syringe See Rx Instructions .ROUTE .COMPLEX Qty: 100 4RF Dose Instruction: USE DIRECTED with insulin injections Rx Instructions: USE DIRECTED with insulin injections isosorbide mononitrate 60 mg tablet extended release 24 hr 60 mg PO DAILY Qty: 90 1RF (DME) pen needle, diabetic [BD Ultra-Fine Mini Pen Needle] 31 gauge x 3/16 needle See Rx Instructions .ROUTE .COMPLEX Qty: 1200 3RF Dose Instruction: USE DIRECTED TO inject insulin THREE TIMES DAILY Rx Instructions: USE DIRECTED TO inject insulin THREE TIMES DAILY (DME) Dexcom G6 Transmitter Device See Rx Instructions .ROUTE .COMPLEX Qty: 3 2RF Dose Instruction: USE DIRECTED TO TEST BLOOD GLUCOSE LEVEL (CHANGE TRANSMITTER EVERY 90 DAYS) Rx Instructions: USE DIRECTED TO TEST BLOOD GLUCOSE LEVEL (CHANGE TRANSMITTER EVERY 90 DAYS) (DME) Dexcom G6 Sensor Device See Rx Instructions .ROUTE .COMPLEX Qty: 3 6RF Dose Instruction: USE DIRECTED TO TEST BLOOD GLUCOSE LEVEL CHANGE SENSOR EVERY 10 DAYS Rx Instructions: USE DIRECTED TO TEST BLOOD GLUCOSE LEVEL CHANGE SENSOR EVERY 10 DAYS furosemide [Lasix] 40 mg tablet 40 mg PO DAILY Qty: 30 2RF ropinirole 1 mg tablet 1 mg PO BID pravastatin 40 mg tablet 40 mg PO HS metoprolol tartrate 100 mg tablet 100 mg PO BID aspirin 81 mg tablet,delayed release (DR/EC) 81 mg PO DAILY tamsulosin 0.4 mg capsule 0.4 mg PO HS lisinopril 10 mg tablet 10 mg PO DAILY insulin glargine [Lantus Solostar U-100 Insulin] 100 unit/mL (3 mL) insulin pen 28 unit SQ HS Referrals Follow up/Referrals: Mendoza Workman MD [Primary Care Provider, Cardiology] - See instructions Clinical Impressions Clinical Impression: Post op infection Instructions Patient Instructions: DI for Laceration Repair Print Language Print Language: Slovenian Discharge ED Provider: Munira Cowart General Adult HPI General Chief complaint: Wound/Laceration Stated complaint: open wound on stomach and left leg Time Seen by Provider: 11/05/24 11:48 History of Present Illness HPI narrative: Patient is a 64-year-old presented today with wound drainage and pain that has been worsening recently. 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 He previously underwent an ultrasound-guided thrombin injection of the pseudoaneurysm he was found to have chronic and critical limb ischemia of the left lower extremity. He presented to [facility] on October 17, 2024 for scheduled surgery he was planned to undergo a left lower extremity bypass and pseudoaneurysm repair however he underwent successful left femoral endarterectomy with external iliac and common femoral artery stenting. He had good popliteal flow and thus the decision was made not to proceed with bypass. He was discharged on 10/19/2024. Patient states that at that time he had some type of drain in and that his wounds never closed up and that they have had increasing pain and swelling in drainage. He states that he is try to discussed the case with the surgeons at [facility] and has been unable. After further chart review he was advised to remove the wound vacuum of his groin on October 23, 2024. Related Data Home Medications ?Medication ?Instructions ?Recorded ?Confirmed aspirin 81 mg tablet,delayed 81 mg PO DAILY 09/12/24 10/14/24 release insulin glargine 100 unit/mL (3 28 unit SQ HS 09/12/24 10/14/24 mL) subcutaneous pen (Lantus Solostar U-100 Insulin) lisinopril 10 mg tablet 10 mg PO DAILY 09/12/24 10/14/24 metoprolol tartrate 100 mg tablet 100 mg PO BID 09/12/24 10/14/24 pravastatin 40 mg tablet 40 mg PO HS 09/12/24 10/14/24 ropinirole 1 mg tablet 1 mg PO BID 09/12/24 10/14/24 tamsulosin 0.4 mg capsule 0.4 mg PO HS 09/12/24 10/14/24 insulin lispro protamine-lispro 15 unit SQ BID 09/20/24 10/14/24 100 unit/mL (75-25) subcutaneous pen (Humalog Mix 75-25 KwikPen) Previous Rx's ?Medication ?Instructions ?Recorded nitroglycerin 0.4 mg sublingual 0.4 mg sublingual Q5-15M PRN chest 06/30/23 tablet pain #30 tabs blood-glucose,hotel custodian,cont #1 ea 10/19/23 (Dexcom G6 Stack Attendant) insulin syringe-needle U-100 1 mL #100 ea 12/11/23 31 gauge x 5/16 (BD Insulin Syringe Ultra-Fine) isosorbide mononitrate 60 mg 60 mg PO DAILY #90 tabs 03/06/24 tablet,extended release 24 hr pen needle, diabetic 31 gauge x #1,200 ea 05/06/24 3/16 (BD Ultra-Fine Mini Pen Needle) blood-glucose transmitter (Dexcom #3 ea 08/27/24 G6 Transmitter device) blood-glucose sensor (Dexcom G6 #3 ea 09/23/24 Sensor device) docusate sodium 100 mg capsule 100 mg PO DAILY #30 caps 09/25/24 (Colace) rivaroxaban 2.5 mg tablet (Xarelto) 2.5 mg PO BID #180 tabs 09/25/24 furosemide 40 mg tablet (Lasix) 40 mg PO DAILY #30 tabs 10/03/24 Allergies Allergy/AdvReac Type Severity Reaction Status Date / Time clopidogrel (From Plavix) Allergy Mild Dizziness Verified 10/14/24 11:32 [facility] Disclaimer: The information contained in this section may have been updated after the patient was seen, as this information can be updated by other users. Medical History (Updated 11/05/24 @ 13:52 by Munira Cowart MD) Numbness and tingling of both feet Numbness and tingling in left arm Atypical angina Right arm pain Dizziness Abnormal cardiovascular stress test Abnormal EKG Swelling of left half of scrotum Cholelithiasis Sinus pause Third degree AV block Angina at rest Elevated troponin NSTEMI (non-ST elevated myocardial infarction) Right bundle branch block CAD (coronary artery disease) Ex-smoker Dyspnea Surgical History Status post left inguinal hernia repair Hx of CABG Social History Smoking Status: Current every day smoker tobacco type: cigarettes packs per day: 1 smoking status stop date: 8 second hand exposure: Yes alcohol intake: never substance use type: marijuana current occupational status: retired Travel in the last 8 weeks?: None household members: none housing: house current occupational exposures/hazards: No caffeine: Yes Have you lived/traveled outside [place] in past 30 days?: No Contact w/someone who lives/traveled outside US past 30 days?: No Exposure to someone with infectious disease in past 14 days?: No Do you have a fever (greater than 100.4 F or 38 C)?: No Have you tested positive for COVID-19?: No Exposed to someone with COVID-19 in past 14 days?: No Do you have a sore throat?: No Do you have a cough?: No Do you have any weakness?: No Do you have any diarrhea?: No Are you experiencing any unusual bleeding?: No Do you have any muscle aches/pain?: No Do you have any abdominal pain?: No Are you experiencing loss of taste or smell?: No Other Medical History Have you received the Flu Vaccine for this season: No Have you received the Pneumonia Vaccine: Yes ROS Obtained: Yes All systems reviewed & no additional complaints except as documented Physical Exam General General appearance: alert Respiratory Respiratory exam: Present normal lung sounds bilaterally Cardiovascular Cardiovascular exam: Present regular rate Abdominal Exam Comment: Patient has an open wound on the left lower quadrant of his abdomen from his recent surgery at his draining serosanguineous drainage no obvious purulent drainage or pathologic erythema surrounding this he has a similar wound that is open and on the medial aspect of his left lower extremity in the distal thigh Neurological Exam Neurological exam: Present alert and oriented X3 Medical Decision Making Medical Records Screening: Per USPSTF and CDC recommendations, given the prevalence of disease in our region, it is our hospital?s policy to screen for HIV and viral Hepatitis for all patients aged 18 and over and those with ongoing risk factors. Quan Inquiry Pt receiving controlled substance: No Vital Signs: 11/05/24 11:40 11/05/24 11:45 11/05/24 12:00 Temperature 98.6 F Temperature Source Oral Pulse Rate 73 68 Pulse Rate [Left Radial] 74 Respiratory Rate 17 Blood Pressure 140/50 L 114/54 L Blood Pressure [Right Arm] 140/50 L Blood Pressure Mean [Right Arm] 80 Blood Pressure Source [Right Arm] Automatic Cuff Blood Pressure Position [Right Arm] Standing 02 Sat by Pulse Oximetry 95 96 97 Oxygen Delivery Method Room Air Lab Data Lab results reviewed: Yes I reviewed the patient's lab results. Lab Results 11/05/24 12:09: WBC 11.3 H, RBC 3.07 L, Hgb 9.2 L, Hct 28.5 L, MCV 92.8, MCH 30.0, MCHC 32.3, RDW 13.2, Plt Count 596 H, MPV 9.0, Neut % (Auto) 72.7, Lymph % (Auto) 15.9, Throckmorton % (Auto) 9.1, Eos % (Auto) 1.3, Baso % (Auto) 0.4, Neut # (Auto) 8.2 H, Lymph # (Auto) 1.8, Throckmorton # (Auto) 1.0, Eos # (Auto) 0.2, Baso # (Auto) 0.1, Sodium 131 L, Potassium 5.2 H, Chloride 103, Carbon Dioxide 25, Anion Gap 8.2, BUN 24 H, Creatinine 0.90, Estimated Creat Clear 100, Estimated GFR 85, Est GFR ( Amer) 102, Glucose 218 H, Calcium 9.0, Total Bilirubin 0.3, AST 19, ALT 18, Alkaline Phosphatase 143 H, C-Reactive Protein 34.1 H, Total Protein 6.3, Albumin 3.5, Globulin 2.8, Albumin/Globulin Ratio 1.3, Procalcitonin 0.107 11/05/24 12:16: VBG pH 7.37, VBG pCO2 40.8, VBG pO2 70.5 H, VBG HCO3 23.0, VBG Total CO2 24.3, VBG O2 Saturation 93.0 H, VBG Base Excess -2.3, VBG Lactic Acid 2.0 11/05/24 12:09 11/05/24 12:09 Orders (Tests/Meds): ED MEDICATIONS Generic Name Dose Route Start Last Admin Trade Name Freq PRN Reason Stop Dose Admin Vancomycin/PEG/NADA/Lysine/Water 1.75 gm in 350 mls @ 175 mls/hr 11/05/24 13:30 Vancomycin 1.75gm/350ml (Peg) Premix IV 11/05/24 15:29 ONCE ONE Discontinued Medications Generic Name Dose Route Start Last Admin Trade Name Freq PRN Reason Stop Dose Admin Lactated Ringer's 1,000 mls @ 999 mls/hr 11/05/24 12:15 11/05/24 13:06 Lactated Ringer's 1000 Ml Bag IV 11/05/24 13:15 999 mls/hr .Q1H1M JUAN Administration Piperacillin Sod/Tazobactam 100 mls @ 200 mls/hr 11/05/24 13:21 Sod 4.5 gm/ Sodium Chloride IV 11/05/24 13:50 ONCE ONE Iopamidol 120 ml 11/05/24 13:00 11/05/24 13:02 Iopamidol-370 (76%);100ml Bottle IV 11/05/24 13:01 120 ml ONCE ONE Administration Miscellaneous 1 each 11/05/24 13:30 Vancomycin Consult Request NOTAPPLIC 12/05/24 13:29 CONSULT PHARMACY JUAN Sodium Chloride 100 ml 11/05/24 13:00 11/05/24 13:02 0.9 % Sodium Chloride 50 Ml Vial IV 11/05/24 13:01 100 ml ONCE ONE Administration Sodium Chloride 10 ml 11/05/24 13:00 11/05/24 13:02 Sodium Chloride 0.9% 10ml Syr (Rad Only) IV 11/05/24 13:01 10 ml ONCE ONE Administration ORDERS Category Date Time Status CT angio abdomen/femoral Stat Cat Scan 11/05/24 12:04 Taken CBC w/Auto Diff [Complete Blood Count Auto Diff] Stat Lab 11/05/24 12:09 Completed CMP [Comprehensive Metabolic Panel] Stat Lab 11/05/24 12:09 Completed CRP [C-Reactive Protein] Stat Lab 11/05/24 12:09 Completed Lactate Venous Stat Lab 11/05/24 12:04 Ordered Procalcitonin Stat Lab 11/05/24 12:09 Completed Blood Culture Stat Micro 11/05/24 12:37 Received Wound Culture and Gram Stain Stat Micro 11/05/24 12:07 Ordered VBG [Venous Blood Gas] Stat RT 11/05/24 12:16 Completed Medical Decision Narrative: 64-year-old with above history and physical. He has open wounds in his left lower quadrant of his abdomen as well as the medial aspect of his left thigh. He is concerned that they have been draining and they certainly are draining could have some mild erythema surrounding them but do not look overtly infected. Will get scans to look at the vascular integrity as well as to see the soft tissues to see if there is any significant surrounding inflammatory change or abscess formation. Will get a culture and Gram stain of the fluid itself. Patient likely needs to follow-up closely with his vascular surgery team unless there is obvious deep space infections or signs of sepsis. Reassessment 1:[address] scans were performed I personally interpreted there seems to be good vascular flow to the left lower extremity regarding the left lower abdominal wound/groin wound there is extensive inflammatory changes in the abdominal wall and some fluid collection tracking near to the wound itself there is some gas that seems to be continuous with the external environment likely not a gas-forming organism. Cannot rule out abscess and/or associated cellulitis. Banken Zosyn have been initiated. There is a smaller wound collection in the distal thigh on the medial aspect both of these wounds are open clinically. On CT imaging there is a small fluid collection in this area but clinically this is draining serosanguineous fluid this is much less concerning than the more proximal wound. Given the fact that the patient told me that this pain and induration had been worsening over the last several days and the nature of the drainage has changed to I suspect this may be an infection. Patient shows no evidence of any systemic infection right now is not septic. I discussed the case with Dr. Gautam and given the fact that the patient looks relatively benign we did give the patient option to have oral antibiotics but he opted to be transferred on IV antibiotics and to be evaluated by vascular surgery. Dr. Gautam excepted to the [place] emergency department to be further evaluated. Critical Care Critical Care Time Critical Care Time: Yes Attestation: On 11/05/24, the high probability of a clinically significant, sudden or life threatening deterioration of the following system(s) required my full and direct attention, intervention and personal management. The time I documented below is in addition to time spent performing reported procedures but includes the following listed in this critical care notation. Total Time Total Critical Care Time: 35
[2024-11-05 12:19] LABS: Hematocrit 28.5 % (42.0-52.0); Hemoglobin 9.2 g/dL (14.1-18.0); Immature Granulocytes % 0.6 %; Mean Corpuscular HGB Conc 32.3 g/dL (31.8-35.4); Mean Corpuscular Hemoglobin 30.0 pg (27.0-31.2); Mean Corpuscular Volume 92.8 fl (80-94); Nucleated Red Blood Cells % 0 %; Platelet Count 596 K/mm3 (142-424); Red Blood Count 3.07 M/mm3 (4.60-6.20); Red Cell Distribution Width-SD 44.9 fL; White Blood Count 11.3 K/mm3 (4.8-10.8)
[2024-11-05 12:20] LABS: Lactate Venous 2.0 mmol/L (0.4-2.0); VBG HCO3 23.0 mmol/L (23-30); VBG PCO2 40.8 mmol/L (35-51); VBG PH 7.37 mmol/L (7.31-7.41); VBG PO2 70.5 mmol/L (28-40)
[2024-11-05 12:31] LABS: Alanine Aminotransferase 18 U/L (12-78); Albumin Level 3.5 g/dl (3.5-5.0); Albumin/Globulin Ratio 1.3 (1.1-1.8); Alkaline Phosphatase 143 U/L (38-126); Anion Gap 8.2 mEq/L (5-15); Aspartate Amino Transferase 19 U/L (17-59); Bilirubin,Total 0.3 mg/dl (0.2-1.3); Blood Urea Nitrogen 24 mg/dl (9-20); Calcium 9.0 mg/dl (8.4-10.2); Carbon Dioxide 25 mmol/L (22.0-30.0); Chloride 103 mmol/L (98-107); Creatinine Clearance Estimated 100 mL/min (50-200); Creatinine,Serum 0.90 mg/dl (0.66-1.25); Estimated Glomerular Filt Rate 85 ml/min (>60); GFR (African American) 102 ML/MIN (>60); Globulin 2.8 g/dL (1.3-3.2); Glucose 218 mg/dl (74-100); Potassium 5.2 mmoL/L (3.5-5.1); Sodium 131 mmol/L (136-145); Total Protein,Serum 6.3 g/dl (6.3-8.2)
[2024-11-05 12:35] LABS: C-Reactive Protein 34.1 mg/L (0-4)
[2024-11-05 12:49] LABS: Procalcitonin 0.107 ng/mL (0.0-2.0)
[2024-11-05] MEDS: 0.9 % SODIUM CHLORIDE 50 ML VIAL 100 ML IV (13:02)
[2024-11-05] MEDS: IOPAMIDOL-370 (76%);100ML BOTTLE 120 ML IV (13:02)
[2024-11-05] MEDS: SODIUM CHLORIDE 0.9% 10ML SYR (RAD ONLY) 10 ML IV (13:02)
[2024-11-05] MEDS: LACTATED RINGERS 1000ML 1,000 ML 999 ML IV (13:06)
--- NOTE | 2024-11-05 13:24 | PC.NURSE ---
Called for a patient transfer per Dr. Cowart. They will call back when a provider is able to talk.
--- NOTE | 2024-11-05 13:26 | PC.NURSE ---
pt provided with a sandwich, chips and a drink at this time
[2024-11-05] MEDS: PIPERACILLIN/TAZO 4.5 GM in 0.9 % SODIUM CHLORIDE 100 ML IV (14:28)
[2024-11-05] MEDS: VANCOMYCIN/WATER FOR INJ (PEG) 1.75 GM/350 ML PIGGYBACK IV (15:12)
--- NOTE | 2024-11-05 15:41 | PC.NURSE ---
report called to CHRISTIAN Ibarra at ER
--- NOTE | 2024-11-05 16:30 | PC.NURSE ---
pt asked about how long it would be until he got to leave. I informed him that another pollo was out of [facility] and we had to wait for their return and that it would be approx 2 hours. pt stated he didnt want to wait but that he wanted to get better to he was agreeable
--- NOTE | 2024-11-05 18:30 | PC.NURSE ---
EMS at bedside for report
--- NOTE | 2024-11-05 18:35 | PC.NURSE ---
EMS had to leave without pt transport to a 911 call. pt informed and this nurse apologized for the inconvenience
--- NOTE | 2024-11-05 19:14 | PC.NURSE ---
report given to CHRISTIAN Bateman
--- NOTE | 2024-11-10 07:53 | PC.NURSE ---
pts wound culture faxed to [facility] as she was transferred there.
== END 2024-11-05 20:38 | disposition home or self-care (01) ==
PROVIDERS: Student in an Organized Health Care Education/Training Program; Emergency Provider Student in an Organized Health Care Education/Training Program; PCP Internal Medicine
DX: T81.49XA Infection following a procedure, other surgical site, initial encounter (principal); F17.210 Nicotine dependence, cigarettes, uncomplicated; E11.65 Type 2 diabetes mellitus with hyperglycemia; I11.9 Hypertensive heart disease without heart failure; I25.10 Atherosclerotic heart disease of native coronary artery without angina pectoris; E78.5 Hyperlipidemia, unspecified; I73.9 Peripheral vascular disease, unspecified; Z95.1 Presence of aortocoronary bypass graft
CPT/HCPCS: 75635; 80053; 82803; 84145; 85025; 86140; 87040; 87070; 87077; 87186; 87205; 96361; 96365; 96366; 99285; J2543; J3375; J7120; Q9967

== ENCOUNTER 2024-11-15 10:03 | Outpatient (CLI) | payer MEDICARE, OTHER, SELFPAY ==
--- OUTSIDE RECORDS SUMMARY | 2024-09-20 21:25 | XMS_ITS | Encounter Summary ---
Author Organization [facility] Address [address] [id number] Care Team Providers Care Glost Tile Sorter Name Role Phone Asad Victor MD Primary Care Provider + [phone] Reason for Visit * Auth/Cert (Routine) Specialty Diagnoses / Procedures Referred By Contac t Referred To Contact Diagnoses Pseudoaneurysm of left femoral artery (CMS/HCC) PSUEDO ANEURYSM Nathaly Nowak MD [address] [address] Phone: tel: fax: [facility] A Emergency Department [address] [place] [address] Phone: tel: Referral ID Status Reason Start Date Expiration Date Visits Re quested Visits Authorized [id number] 1 1 Encounter Details Date Type Department Care Team (Latest Contact Info) Description 09/20/2024 9:25 PM EDT - 09/22/2024 4:00 PM EDT Hospital Encounter [facility] Inpatient [address] [place] [id number] Robbie Braxton MD [address] [place] [address] Nathaly Nowak MD [id number] [place] [address] Pseudoaneurysm of left femoral artery [...] drink first t dino in the morning (EYE-TOOL CRIB MANAGER) to steady your nerves or to get [...] to schedule you next surgery. Questions: Call [phone] during business hours on week or call [facility]'s after hours at [phone] to speak with a resident clinical documentation developer for Vascular Surgery after 5pm or [...] Carmona with any questions or concerns at [phone]. It is important that you get your [...] T2DM, HLD, HTN, RLS who presented to [facility] with a large left common femoral artery [...] discharge instructions. No distress noted. 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 Awaiting his ride to arrive. Patient states his discharge ride is about 40 minutes away. * [facility] - Melecio Vega RN - 09/22/2024 2:52 PM EDT Images from the original note were not included. [id number] Peripheral Artery Disease (PAD) Peripheral artery disease [...] cause. Last Reviewed Date: 2024 00:00:00 ?? [id number] [employer]. All rights reserved. This information is not intended as a substitute for professional medical care. Always follow your healthcare professional's instructions. * [facility] Mele[facility]io V[facility] RN - 09/22/2024 2:52 PM EDT Images from the original note were not included. [id number] Taking Aspirin for Atherosclerosis Aspirin is a [...] This includes: ? All prescription medicines ? Xkop-fky-exhqlev medicines ? Herbs, vitamins, and other supplements [...] pain Last Reviewed Date: 2022 00:00:00 ?? [id number] [employer]. All rights reserved. This information is not [...] name and Address: Asad Victor MD (Inactive) [address] [place] [address] / [facility] [address] Referring provider name and address: Timothy Marques PA [address] [place] [address] Chief Concern, Brief History of Present Illness, and Hospital Course Mono Bobby is a 64 y.o. male with PMHx notable for COPD, CAD s/p PCI with pacemaker on Xarelto, T2DM, HLD, HTN, RLS who presented to [facility] with a large left common femoral artery [...] Your Medications These medications were sent to [facility] - [place], [place] - [address] [facility] [address] oxyCODONE 5 MG immediate release tablet Discharge [...] soap and water daily. Pat to dry. [place]/ sutures will be removed at postoperative follow [...] to schedule you next surgery. Questions: Call [phone] during business hours on weekdays or call [facility]'s after hours at [phone] to speak with a resident clinical documentation developer for Vascular Surgery after 5pm or [...] Carmona with any questions or concerns at [phone]. It is important that you get your [...] and Manage Fall Risk Flowsheets (Taken 09/22/2024 0048) Safety Promotion/Fall Prevention: activity supervised assistive device/personal [...] Regular diet - Repeat duplex 09/22 - [facility] - consider IO cath if sensation [...] from the original note were not included. [facility] Department of Surgery Division of Vascular Surgery Surgery Progress Note 09/21/24 Mono Bobby Subjective Subjective: HPI Mono Bobby is a 64 y.o. 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 09/21: Thrombin injection of left common femoral artery pseudoaneurysm Interval: NAEON. He reports feeling well. Still having some groin pain. Duplex confirmed PSA. Discussed treatment with thrombin injection and pt would like to proceed. 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 Duplex today confirmed it was a pseudoaneurysm. Thrombin injection performed today. He tolerated the procedure well. POC later tonight. Plan: [ ] Post op check at 1999 - Continue strict bedrest - Regular diet - Duplex 09/21: showed DOCUMENT RESTORER pseudoaneurysm - Repeat duplex 09/22 - [facility] Edited by: Anthony Keenan MD at 09/21/2024 5729 Dispo: Continue Current Level of Care Philipp Keenan MD General Surgery, PGY 1 Pager: [phone] Cosigned by Terrell Gautam MD at 09/23/2024 [...] femoral artery pseudoaneurysm Attending Surgeon(s): Terrell Gautam Yarn Salvager(s): Jerry Holcomb Anesthesia: local ASA: 3 Blood [...] pseudoaneurysm sac is far away from the s[place]ogon artery as possible. Very slowly 0.2 cc [...] from the original note were not included. [facility] Department of Surgery Division of [...] HLD, HTN, RLS who presented to the [facility] on 09/20/2024 as a transfer [...] At that time, the patient presented to [facility] and underwent an updated CTA which demonstrated concern for a left common femoral artery pseudo aneurysm. He was transferred to the [facility] for a higher level of [...] MINUTES. IF NO RELIEF AFTER 3 DOSES [id number]/GO TO ER 11/02/21 Darby Camara MD pravastatin [...] T2DM, HLD, HTN, RLS who presented to [facility] with a large left common femoral artery [...] ongoing surgical planning. Plan: - Admit to [facility] - Strict bedrest - NPO, mIVF - Will discuss surgical options in the morning Dispo: Admit to [facility] CODE STATUS: full code This Consult, Assessment, and Plan has been discussed with Dr. Nowak, Attending Physician Shaila Lord [1] Past Medical History: Diagnosis Date Arthritis Old myocardial infarction History of myocardial infarction [2] No Known Allergies [3] Past Surgical History: Procedure Laterality Date ANKLE SURGERY Right CAROTID ENDARTERECTOMY N/A Endarterectomy Carotid Artery from [facility] CORONARY ANGIOPLASTY Left Coronary Angiography With Concomitant Left Heart Catheterization from [facility] CORONARY ARTERY BYPASS GRAFT N/A CABG from [facility] ELBOW SURGERY Right OTHER SURGICAL HISTORY N/A Reported Prior Surgical / Procedural History from [facility] [4] Family History Problem Relation Name Age [...] MINUTES. IF NO RELIEF AFTER 3 DOSES [id number]/GO TO ER pravastatin (Pravachol) 80 MG tablet [...] accompanied by pain [facility]. In the emergency department they obtained a CTA with runoff of the lower extremities which found a left-sided femoral pseudoaneurysm. The patient was transferred here for higher level of care. He has not had any lower extremity pallor, pain, weakness, or sensory changes. History provided by: Patient and medical records oim consultant used: No Patient History Past Medical History[1] [...] CAROTID ENDARTERECTOMY N/A Endarterectomy Carotid Artery from [facility] CORONARY ANGIOPLASTY Left Coronary Angiography With Concomitant Left Heart Catheterization from [facility] CORONARY ARTERY BYPASS GRAFT N/A CABG from [facility] ELBOW SURGERY Right OTHER SURGICAL HISTORY N/A Reported Prior Surgical / Procedural History from [facility] [3] Family History Problem Relation Name Age [...] - 09/20/2024 9:22 PM EDT Arrived from [facility] pt transferred from [facility] c/o left groin pain pt had stent x2 on 09/12 went to cardiology and was told to go to hospital. documented in this encounter Plan of Treatment Upcoming Encounters Date Type Department Care Team (Late st Contact Info) Description 11/26/2024 2:00 PM EDT Appointment [facility] Vascular Lab [address] [place] [address] 11/26/2024 2:30 PM EDT Appointment [facility] Vascular Lab [address] [place] [address] 11/26/2024 3:20 PM EDT Office Visit [facility] [address] [place] [address] Elisabet Schuster PA [address] [place] [address] 11/29/2024 2:30 PM EDT Office Visit [facility] [address] [place] [address] Oscar Appiah MD [address] [place] [address] documented as of this encounter Procedures Procedure [...] Comment 09/22/2024 11:11 AM EDT HEALTHCARE LAB Cross Country And Track And Field Coach ID Zena Rios 025 11:11 AM EDT HEALTHCARE LAB Device ID [id number] 09/22/2024 11:11 AM EDT HEALTHCARE LAB Specimen Type POC Capillary 09/22/2024 11:11 AM EDT HEALTHCARE LAB Blood Capillary blood specimen / Unknown 09/22/2024 11:06 AM EDT 09/22/2024 11:11 AM EDT us Nathaly Nowak MD LAB POINT OF CARE TE ST DOCKED DEVICE UNSOLICITED RESULTS Final Result Performing Organization Address City/State/[facility] Co de Phone Number HEALTHCARE LAB [address] [place] [address] * VAS US Arterial Duplex Lower Extremity [...] 7:15 PM EDT CLINICAL INDICATION: s/p L DOCUMENT RESTORER pseudoaneurysm injection TECHNIQUE: Non-invasive, real time duplex [...] sac. The following flow velocities were obtained: DOCUMENT RESTORER: 114 cm/s SFA: 0 cm/s PFA: 278 cm/s Popliteal A: 41 cm/s EVENT SPECIALIST FOOD DEMONSTRATOR distal: 43 cm/s DPA: 67 cm/s Pseudoaneurysm sac: 0 cm/s Procedure Note Neil Isaac MD - 09/22/2024 CLINICAL INDICATION: s/p L DOCUMENT RESTORER pseudoaneurysm injection TECHNIQUE: Non-invasive, real time duplex exam of the lower extremity arterialcirculation with Doppler ultrasonic waveform and spectral analysis wasperformed. COMPARISON: Post pseudoaneurysm thrombin injection arterial duplex [id number]/28/2025; Following thrombin injection of the left common femoral arterypseudoaneurysm, no active flow is noted. Study suggests successfulthrombin injection therapy FINDINGS: Left: Following thrombin injection, an echogenic thrombus is noted within thepseudoaneurysm sac. Color and pulsed Doppler analysis demonstrates anabsence of flow within the pseudoaneurysm sac. The following flowvelocities were obtained: DOCUMENT RESTORER: 114 cm/s SFA: 0 cm/s PFA: 278 cm/s Popliteal A: 41 cm/s EVENT SPECIALIST FOOD DEMONSTRATOR distal: 43 cm/s DPA: 67 cm/s Pseudoaneurysm [...] Comment 09/22/2024 7:22 AM EDT HEALTHCARE LAB Cross Country And Track And Field Coach ID Zena Rios 025 7:22 AM EDT HEALTHCARE LAB Device ID [id number] 09/22/2024 7:22 AM EDT HEALTHCARE LAB Specimen Type POC Capillary 09/22/2024 7:22 AM EDT [facility] Blood Capillary blood specimen / Unknown 09/22/2024 7:19 AM EDT 09/22/2024 7:22 AM EDT Nathaly Nowak MD LAB POINT OF CARE TE ST DOCKED DEVICE UNSOLICITED RESULTS Final Result HEALTHCARE LAB [address] [place] [address] * Magnesium (09/22/2024 3:49 AM EDT) Magnesium, Plasma 2.1 1.9 - 2.4 mg/dL 09/22/2024 4:49 AM EDT [facility] Blood Venous blood specimen / Unknown Venipuncture / Unknown 09/22/2024 3:49 AM EDT 09/22/2024 4:12 AM EDT Nathaly Nowak MD LAB BLOOD ORDERABLES Final Resu lt [facility] [address] [place] [address] * Phosphorus (09/22/2024 3:49 AM EDT) Phosphorus, Plasma 2.9 2.5 - 4.5 mg/dL 09/22/2024 4:49 AM EDT [facility] Blood Venous blood specimen / Unknown Venipuncture / Unknown 09/22/2024 3:49 AM EDT 09/22/2024 4:12 AM EDT us Nathaly Nowak MD LAB BLOOD ORDERABLES Final Resu lt Performing Organization Address [facility]/ZIP Co de Phone Number [facility] [address] [place] [address] * (ABNORMAL) Basic metabolic panel (09/22/2024 3:49 AM EDT) Pathologist [facility] Glucose, Plasma 132(H) 74 - 99 mg/dL 09/22/2024 4:49 AM EDT [facility] BUN, Plasma 15 8 - 23 mg/dL 09/22/2024 4:49 AM EDT [facility] Creatinine, Plasma 0.78 0.70 - 1.20 mg/dL 09/22/2024 4:49 AM EDT [facility] BUN/Creatinine Ratio 19 09/22/2024 4:49 AM EDT [facility] Sodium, Plasma 137 136 - 145 mmol/L 09/22/2024 4:49 AM EDT [facility] Potassium, Plasma 4.5 3.6 - 4.9 mmol/L 09/22/2024 4:49 AM EDT [facility] Chloride, Plasma 104 97 - 107 mmol/L 09/22/2024 4:49 AM EDT [facility] CO2, Plasma 24 22 - 29 mmol/L 09/22/2024 4:49 AM EDT [facility] Anion Gap 9 6 - 16 mmol/L 09/22/2024 4:49 AM EDT [facility] Total Calcium, Plasma 9.2 8.9 - 10.2 mg/dL 09/22/2024 4:49 AM EDT [facility] eGFRcr 99.0 mL/min/1.7 3m*2 09/22/2024 4:49 AM EDT [facility] Comment:Reported eGFRcr in m L/min/1.73m2 is based the CKD-EPI 2020 equation that does not use a race coefficient. Blood Venous blood specimen / Unknown Venipuncture / Unknown 09/22/2024 3:49 AM EDT 09/22/2024 4:12 AM EDT us Nathaly Nowak MD LAB BLOOD ORDERABLES Final Resu lt [facility] [address] [place] [address] * (ABNORMAL) CBC (09/22/2024 3:49 AM EDT) WBC Count 11.68(H) 3.70 - 10.30 10*3/uL LAB HEMATOLOGY METHOD 09/22/2024 4:26 AM EDT [facility] RBC Count 2.89(L) 4.60 - 6.10 10*6/uL LAB HEMATOLOGY METHOD 09/22/2024 4:26 AM EDT [facility] HGB 8.9(L) 13.7 - 17.5 g/dL LAB HEMATOLOGY METHOD 09/22/2024 4:26 AM EDT [facility] HCT 26.7(L) 40.0 - 51.0 % LAB HEMATOLOGY METHOD 09/22/2024 4:26 AM EDT [facility] Platelet Count 454(H) 155 - 369 10*3/uL LAB HEMATOLOGY METHOD 09/22/2024 4:26 AM EDT [facility] MCV 92 79 - 98 fL LAB HEMATOLOGY METHOD 09/22/2024 4:26 AM EDT [facility] MCH 30.8 26.0 - 32.0 pg LAB HEMATOLOGY METHOD 09/22/2024 4:26 AM EDT [facility] MCHC 33.3 30.7 - 35.5 g/dL LAB HEMATOLOGY METHOD 09/22/2024 4:26 AM EDT [facility] RDW 13.6 11.5 - 14.5 % LAB HEMATOLOGY METHOD 09/22/2024 4:26 AM EDT [facility] MPV 8.8 8.8 - 12.5 fL LAB HEMATOLOGY METHOD 09/22/2024 4:26 AM EDT [facility] nRBC 0.0 <=0.0 per 100 WBCs LAB HEMATOLOGY METHOD 09/22/2024 4:26 AM EDT [facility] Blood Venous blood specimen / Unknown Venipuncture / Unknown 09/22/2024 3:49 AM EDT 09/22/2024 4:14 AM EDT us Nathaly Nowak MD LAB BLOOD ORDERABLES Final Resu lt Performing Organization Address [facility] Co de Phone Number [facility] [address] [place] [address] * (ABNORMAL) POCT glucose meter (09/21/2024 8:45 [...] 09/21/2024 8:47 PM EDT [facility] [employer] Track And Field Coach ID Joy Reich 025 8:47 PM EDT HEALTHCARE LAB Device ID [id number] 09/21/2024 8:47 PM EDT HEALTHCARE LAB Specimen Type POC Capillary 09/21/2024 8:47 PM EDT [facility] Blood Capillary blood specimen / Unknown 09/21/2024 8:45 PM EDT 09/21/2024 8:47 PM EDT us Nathaly Nowak MD LAB POINT OF CARE TE ST DOCKED DEVICE UNSOLICITED RESULTS Final Result Performing Organization Address City/[facility]/ZIP Co de Phone Number [facility] [address] [place] [address] * (ABNORMAL) POCT glucose meter (09/21/2024 5:09 [...] Comment 09/21/2024 5:11 PM EDT HEALTHCARE LAB Cross Country [employer] Track And Field Coach ID Jojo Lange 025 5:11 PM EDT HEALTHCARE LAB Device ID [id number] 09/21/2024 5:11 PM EDT HEALTHCARE LAB Specimen Type POC Capillary 09/21/2024 5:11 PM EDT HEALTHCARE LAB Blood Capillary blood specimen / Unknown 09/21/2024 5:09 PM EDT 09/21/2024 5:11 PM EDT us Nathaly Nowak MD LAB POINT OF CARE TE ST DOCKED DEVICE UNSOLICITED RESULTS Final Result HEALTHCARE LAB [address] [place] [address] * VAS US Arterial Duplex Lower Extremity Unilateral Left; Pseudoaneurysm (PSA) (09/21/2024 2:38 PM EDT) Anatomical Region Laterality Modality Lower Extremities Ultrasound Impressions 09/21/2024 7:35 PM EDT Left: Following thrombin injection of the common femoral artery pseudoaneurysm, no active flow is noted. Study suggests successful thrombin injection therapy. COMMUNICATION: Per this written report. Preliminary report signed by THMO Santiago on 09/21/2024 3:09 PM By electronically signing this report, I, the attending physician, attest that I have personally reviewed the images/data for the above examination(s) and I agree with the final edited report. Drafted by THOM Santiago on 09/21/2024 3:08 PM Final report signed by Neil Isaac MD on 09/21/2024 7:35 PM Narrative 09/21/2024 7:35 PM EDT CLINICAL INDICATION: s/p DOCUMENT RESTORER pseudoaneurysm injection TECHNIQUE: Non-invasive, real time duplex exam of the lower extremity arterial circulation with Doppler ultrasonic waveform and spectral analysis was performed. COMPARISON: None. FINDINGS: Left: Following thrombin injection, an echogenic thrombus is noted within the pseudoaneurysm sac. Color and pulsed Doppler analysis demonstrates an absence of flow within the pseudoaneurysm sac. The following flow velocities were obtained: DOCUMENT RESTORER: 55 cm/s SFA: 0 cm/s Popliteal A: 51 cm/s EVENT SPECIALIST FOOD DEMONSTRATOR distal: 35 cm/s DPA: 61 cm/s Pseudoaneurysm sac: 0 cm/s Procedure Note Neil Isaac MD - 09/21/2024 CLINICAL INDICATION: s/p DOCUMENT RESTORER pseudoaneurysm injection TECHNIQUE: Non-invasive, real time duplex exam of the lower extremity arterialcirculation with Doppler ultrasonic waveform and spectral analysis wasperformed. COMPARISON: None. FINDINGS: Left: Following thrombin injection, an echogenic thrombus is noted within thepseudoaneurysm sac. Color and pulsed Doppler analysis demonstrates anabsence of flow within the pseudoaneurysm sac. The following flowvelocities were obtained: DOCUMENT RESTORER: 55 cm/s SFA: 0 cm/s Popliteal A: 51 cm/s EVENT SPECIALIST FOOD DEMONSTRATOR distal: 35 cm/s DPA: 61 cm/s Pseudoaneurysm [...] POCT glucose meter (09/21/2024 1:04 PM EDT) [facility] POCT Glucose 177(H) 74 - 99 [...] Comment 09/21/2024 1:09 PM EDT HEALTHCARE LAB [employer] Track [employer] Field Coach ID Ruth Solo 025 1:09 PM EDT HEALTHCARE LAB Device ID [id number] 09/21/2024 1:09 PM EDT HEALTHCARE LAB Specimen Type POC Capillary 09/21/2024 1:09 PM EDT HEALTH[facility]ARE LAB Blood Capillary blood specimen / Unknown 09/21/2024 1:04 PM EDT 09/21/2024 1:09 PM EDT us Nathaly Nowak MD LAB POINT OF CARE TE ST DOCKED DEVICE UNSOLICITED RESULTS Final Result Performing Organization Address City/State/[facility] Co de Phone Number [facility] [address] [place] [address] * (ABNORMAL) POCT glucose meter (09/21/2024 12:24 PM EDT) [facility] POCT Glucose 153(H) 74 - 99 [...] 09/21/2024 12:26 PM EDT [facility] [employer] Field Coach ID Ruth Solo 025 12:26 PM EDT [facility] Device ID [id number] 09/21/2024 12:26 PM EDT HEALTHCARE LAB Specimen Type POC Capillary 09/21/2024 12:26 PM EDT HEALTHCARE LAB Blood Capillary blood specimen / Unknown 09/21/2024 12:24 PM EDT 09/21/2024 12:26 PM EDT us Nathaly Nowak MD LAB POINT OF CARE TE ST DOCKED DEVICE UNSOLICITED RESULTS Final Result [facility] [address] [place] [address] * VAS US Arterial Duplex Lower Extremity [...] neck. The following flow velocities were obtained: DOCUMENT RESTORER: 93 cm/s SFA: 0 cm/s Popliteal A: 36 cm/s EVENT SPECIALIST FOOD DEMONSTRATOR distal: 34 cm/s DPA: 59 cm/s Pseudoaneurysm [...] neck. The following flow velocities were obtained: DOCUMENT RESTORER: 93 cm/s SFA: 0 cm/s Popliteal A: 36 cm/s EVENT SPECIALIST FOOD DEMONSTRATOR distal: 34 cm/s DPA: 59 cm/s Pseudoaneurysm [...] glucose meter (09/21/2024 7:55 AM EDT) Pathologist [facility] POCT Glucose 130(H) 74 - 99 mg/dL [...] for testing. Comment 09/21/2024 8:01 AM EDT [facility] [employer] Coach ID Ruth Solo 025 8:01 AM EDT [facility] Device ID [id number] 09/21/2024 8:01 AM EDT [facility] Specimen Type POC Capillary 09/21/2024 8:01 AM EDT [facility] Blood Capillary blood specimen / Unknown 09/21/2024 7:55 AM EDT 09/21/2024 8:01 AM EDT Nathaly Nowak MD LAB POINT OF CARE TE ST DOCKED DEVICE UNSOLICITED RESULTS Final Result [facility] [address] [place] [address] * (ABNORMAL) POCT glucose meter (09/21/2024 6:06 AM EDT) Pathologist [facility] POCT Glucose 153(H) 74 - 99 mg/dL [...] Comment 09/21/2024 6:09 AM EDT HEALTHCARE LAB Cross [employer] Field Coach ID Yuan Griffin 09/22/19 6:09 AM EDT HEALTHCARE LAB Device ID [id number] 09/21/2024 6:09 AM EDT HEALTHCARE LAB Specimen Type POC Capillary 09/21/2024 6:09 AM EDT HEALTHCARE LAB Blood Capillary blood specimen / Unknown 09/21/2024 6:06 AM EDT 09/21/2024 6:09 AM EDT Nathaly Nowak MD LAB POINT OF CARE TE ST DOCKED DEVICE UNSOLICITED RESULTS Final Result Performing Organization Address City/[facility] Co de Phone Number HEALTHCARE LAB [address] [place] [address] * (ABNORMAL) POCT glucose meter (09/21/2024 2:27 AM EDT) [facility] POCT Glucose 194(H) 74 - 99 [...] Comment 09/21/2024 2:34 AM EDT HEALTHCARE LAB [employer] Field Coach ID Ana Maria Corea 09/21/2024 2:34 AM EDT HEALTHCARE LAB Device ID [id number] 09/21/2024 2:34 AM EDT HEALTHCARE LAB Specimen Type POC Capillary 09/21/2024 2:34 AM EDT [facility]ALTH[facility]ARE LAB Blood Capillary blood specimen / Unknown 09/21/2024 2:27 AM EDT 09/21/2024 2:34 AM EDT Nathaly Nowak MD LAB POINT OF CARE TE ST DOCKED DEVICE UNSOLICITED RESULTS Final Result Performing Organization Address City/[facility]/ZIP Co de Phone Number HEALTHCARE LAB [address] [place] [address] * ECG Adult (09/21/2024 2:00 AM EDT) [facility] EKG DIAGNOSIS CLASS Abnormal MUSE ECG Ventricular Rate 85 BPM MUSE ECG Atrial Rate 85 BPM MUSE ECG NV Interval 146 ms MUSE ECG QRSD Interval 128 ms MUSE ECG QT Interval 390 ms MUSE ECG QTC Interval 464 ms MUSE ECG P [place] 52 degrees MUSE ECG R [place] 263 degrees MUSE ECG T Wave [place] 57 degrees MUSE ECG Diagnosis Atrial-sensed ventricular-pace d rhythm MUSE ECG Diagnosis Biventricular pacemaker detected MUSE ECG Diagnosis MUSE ECG Diagnosis MUSE ECG Diagnosis Confirmed by Sana Ruth ([id number]) on 09/22/2024 11:34:36 PM MUSE ECG 09/21/2024 2:00 AM EDT 09/22/2024 11:34 PM EDT Nathaly Nowak MD ECG ORDERABLES Final Result MUSE ECG * ED HIV 1/2 Antibody/Antigen Screen w/Reflex to HIV 1/2 Differentiation (09/20/2024 10:33 PM EDT) [facility] HIV 1 & 2 Antibody/Antigen Screen Non Reactive Non Reactive 09/20/2024 11:39 PM EDT [facility] Comment:Screening for HIV 1 & 2 antibodies, and P24 antigen is NONREACTIVE. No confirmatory testing is required. Blood Venous blood specimen / Unknown Venipuncture / Unknown 09/20/2024 10:33 PM EDT 09/20/2024 10:54 PM EDT us Giorgi Perkins MD LAB BLOOD ORDERABLES Final Result [facility] [address] [place] [address] * Hepatitis C Antibody - ED (09/20/2024 10:33 PM EDT) [facility] Hepatitis C Antibody Negative Negative 09/20/2024 11:39 PM EDT [facility] Blood Venous blood specimen / Unknown Venipuncture / Unknown 09/20/2024 10:33 PM EDT 09/20/2024 10:53 PM EDT us Giorgi Perkins MD LAB BLOOD ORDERABLES Final Result [facility] [address] [place] [address] * APTT (09/20/2024 10:33 PM EDT) aPTT 28 25 - 35 sec LAB COAGULATION METHOD 09/21/2024 12:19 AM EDT [facility] Blood Venous blood specimen / Unknown Venipuncture / Unknown 09/20/2024 10:33 PM EDT 09/20/2024 10:42 PM EDT us Giorgi Perkins MD LAB BLOOD ORDERABLES Final Result Performing Organization Address [facility] Co de Phone Number [facility] [address] [place] [address] * PT-INR (09/20/2024 10:33 PM EDT) Prothrombin Time 14.0 12.0 - 14.3 sec LAB COAGULATION METHOD 09/21/2024 12:19 AM EDT [facility] INR 1.1 0.9 - 1.1 LAB COAGULATION METHOD 09/21/2024 12:19 AM EDT [facility] Blood Venous blood specimen / Unknown Venipuncture / Unknown 09/20/2024 10:33 PM EDT 09/20/2024 10:42 PM EDT Narrative [facility] - 09/21/2024 12:19 AM EDT OPTIMAL INR RANGES FOR PATIENT ON ORAL ANTICOAGULANT THERAPY Prevention of venous thromboembolism INR 2.0 to 3.0 In patients with heart disease: Atrial fibrillation INR 2.0 to 3.0 Valvular heart disease INR 2.0 to 3.0 Tissue heart valves INR 2.0 to 3.0 Mechanical prosthetic valves INR 2.5 to 3.5 Prevention of recurrent ND INR 2.5 to 3.5 us Giorgi Perkins MD LAB BLOOD ORDERABLES Final Result [facility] [address] [place] [address] * (ABNORMAL) CBC w/diff (09/20/2024 10:33 PM EDT) WBC Count 13.38(H) 3.70 - 10.30 10*3/uL LAB HEMATOLOGY METHOD 09/20/2024 11:00 PM EDT [facility] RBC Count 2.91(L) 4.60 - 6.10 10*6/uL LAB HEMATOLOGY METHOD 09/20/2024 11:00 PM EDT [facility] HGB 9.0(L) 13.7 - 17.5 g/dL LAB HEMATOLOGY METHOD 09/20/2024 11:00 PM EDT [facility] HCT 27.2(L) 40.0 - 51.0 % LAB HEMATOLOGY METHOD 09/20/2024 11:00 PM EDT [facility] Platelet Count 407(H) 155 - 369 10*3/uL LAB HEMATOLOGY METHOD 09/20/2024 11:00 PM EDT [facility] MCV 94 79 - 98 fL LAB HEMATOLOGY METHOD 09/20/2024 11:00 PM EDT [facility] MCH 30.9 26.0 - 32.0 pg LAB HEMATOLOGY METHOD 09/20/2024 11:00 PM EDT [facility] MCHC 33.1 30.7 - 35.5 g/dL LAB HEMATOLOGY METHOD 09/20/2024 11:00 PM EDT [facility] RDW 13.6 11.5 - 14.5 % LAB HEMATOLOGY METHOD 09/20/2024 11:00 PM EDT [facility] MPV 9.0 8.8 - 12.5 fL LAB HEMATOLOGY METHOD 09/20/2024 11:00 PM EDT [facility] nRBC 0.0 <=0.0 per 100 WBCs LAB HEMATOLOGY METHOD 09/20/2024 11:00 PM EDT [facility] Differential Type Automated LAB HEMATOLOGY METHOD 09/20/2024 11:00 PM EDT [facility] Neutrophils % 77 % LAB HEMATOLOGY METHOD 09/20/2024 11:00 PM EDT [facility] Lymphocytes % 13 % LAB HEMATOLOGY METHOD 09/20/2024 11:00 PM EDT [facility] Monocytes % 8 % LAB HEMATOLOGY METHOD 09/20/2024 11:00 PM EDT [facility] Eosinophils % 1 % LAB HEMATOLOGY METHOD 09/20/2024 11:00 PM EDT [facility] Basophils % 0 % LAB HEMATOLOGY METHOD 09/20/2024 11:00 PM EDT [facility] Immature Granulocytes % 1 % LAB HEMATOLOGY METHOD 09/20/2024 11:00 PM EDT [facility] Neutrophils Absolute 10.28(H) 1.60 - 6.10 10*3/uL LAB HEMATOLOGY METHOD 09/20/2024 11:00 PM EDT [facility] Lymphocytes Absolute 1.67 1.20 - 3.90 10*3/uL LAB HEMATOLOGY METHOD 09/20/2024 11:00 PM EDT [facility] Monocytes Absolute 1.12(H) 0.30 - 0.90 10*3/uL LAB HEMATOLOGY METHOD 09/20/2024 11:00 PM EDT [facility] Eosinophils Absolute 0.14 0.00 - 0.50 10*3/uL LAB HEMATOLOGY METHOD 09/20/2024 11:00 PM EDT [facility] Basophils Absolute 0.05 0.00 - 0.10 10*3/uL LAB HEMATOLOGY METHOD 09/20/2024 11:00 PM EDT [facility] Immature Granulocytes Absolute 0.12(H) 0.00 - 0.06 10*3/uL LAB HEMATOLOGY METHOD 09/20/2024 11:00 PM EDT [facility] Blood Venous blood specimen / Unknown Venipuncture / Unknown 09/20/2024 10:33 PM EDT 09/20/2024 10:42 PM EDT Narrative [facility] - 09/20/2024 11:00 PM EDT Therapeutic decision making should be based on absolute values, rather than percentages. us Giorgi Perkins MD LAB BLOOD ORDERABLES Final Result [facility] [address] [place] [address] * (ABNORMAL) CMP (09/20/2024 10:33 PM EDT) Glucose, Plasma 170(H) 74 - 99 mg/dL 09/20/2024 11:03 PM EDT [facility] BUN, Plasma 27(H) 8 - 23 mg/dL 09/20/2024 11:03 PM EDT [facility] Creatinine, Plasma 0.93 0.70 - 1.20 mg/dL 09/20/2024 11:03 PM EDT [facility] BUN/Creatinine Ratio 29 09/20/2024 11:03 PM EDT [facility] Sodium, Plasma 134(L) 136 - 145 mmol/L 09/20/2024 11:03 PM EDT [facility] Potassium, Plasma 5.0(H) 3.6 - 4.9 mmol/L 09/20/2024 11:03 PM EDT [facility] Chloride, Plasma 101 97 - 107 mmol/L 09/20/2024 11:03 PM EDT [facility] CO2, Plasma 22 22 - 29 mmol/L 09/20/2024 11:03 PM EDT [facility] Anion Gap 11 6 - 16 mmol/L 09/20/2024 11:03 PM EDT [facility] Total Calcium, Plasma 9.1 8.9 - 10.2 mg/dL 09/20/2024 11:03 PM EDT [facility] Total Protein 6.6 6.3 - 7.9 g/dL 09/20/2024 11:03 PM EDT [facility] Albumin, Plasma 3.9 3.5 - 5.2 g/dL 09/20/2024 11:03 PM EDT [facility] AST, Plasma 11 10 - 50 U/L 09/20/2024 11:03 PM EDT [facility] ALT, Plasma 16 10 - 50 U/L 09/20/2024 11:03 PM EDT [facility] Alkaline Phosphatase, Plasma 132(H) 40 - 115 U/L 09/20/2024 11:03 PM EDT [facility] Total Bilirubin, Plasma 0.6 0.2 - 1.1 mg/dL 09/20/2024 11:03 PM EDT [facility] eGFRcr 91.1 mL/min/1.7 3m*2 09/20/2024 11:03 PM EDT [facility] Comment:Reported eGFRcr in m L/min/1.73m2 is based the CKD-EPI 2020 equation that does not use a race coefficient. 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
--- OUTSIDE RECORDS SUMMARY | 2024-10-11 10:15 | XMS_ITS | Encounter Summary ---
Author Organization [facility] Address [address] [place] [address] Care Team Providers Care Irb Compliance Coordinator Name Role Phone Asad Victor MD Primary Care Provider + [phone] Encounter Details Date Type Department Care Team (Latest Contact Info) Description 10/11/2024 10:15 AM EDT Pre-Admission Testing [facility] Pre-op Clinic [address], [address] [place] [phone] Preop testing (Primary Dx) Anesthesia Record Procedure [...] Hand; Site Prep: Chlorhexidine ; Local Anesth: [place]; Technique: Anatomical landmarks; Inserted by: CHRISTIAN Acuna; [...] G; Orientation: Right; Location: Axillary; Inserted by: FINANCIAL DEVELOPER; Securement: Sutured; Patient Tolerance: Tolerated well; Removal [...] drink first t dino in the morning (EYE-CORNCOB PIPES ASSEMBLER) to steady your nerves or to get [...] note 09/25/24 (media) + CAD s/p multiple MD's and 3V CABG 02/2019, 2 stents prior to CABG Atrial Fibrillation with RVR s/p CABG + carotid artery disease s/p R CEA 2016 + 3rd degree AV block CONSUMER BANKER-P placed 08/2023 for Wenkeback with 11 sec pause + HLD + HTN - controlled + PAD 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 S/P intravascular lithotripsy of left common and external iliac artery with 2 continuous balloon mounted bare metal stents 09/12/24 on Xarelto and ASA + WILHELM occ, low energy for > year - had work-up recently in [place] (will get records) + peripheral edema LLE [...] ENDARTERECTOMY N/A 2017 Endarterectomy Carotid Artery from [facility] CORONARY ANGIOPLASTY Left Coronary Angiography With Concomitant Left Heart Catheterization from [facility] CORONARY ARTERY BYPASS GRAFT N/A 2018 3V ELBOW SURGERY Right OTHER SURGICAL HISTORY N/A Reported Prior Surgical / Procedural History from [facility] [5] No Known Allergies [6] Current Outpatient [...] card, photo ID, along with power of tax associate attorney, guardianship or advanced directives if applicable [...] Info) Description 11/26/2024 2:00 PM EDT Appointment [facility] Lab [address] [facility] [address] [place] [address] 11/26/2024 2:30 PM EDT Appointment [facility] [address] [facility] 5[address] [place] [address] 11/26/2024 3:20 PM EDT Office Visit [facility] [address] [place] [address] Elisabet Schuster PA [address] [place] [address] 11/29/2024 2:30 PM EDT Office Visit [facility] [address] [place] [address] Oscar Appiah MD [address] [facility] [address] [place] [address] documented as of this encounter [...] Modality Other Narrative 10/17/2024 9:50 AM EDT [facility]: Pre-operative CIED Report Assessment and Sara-Procedural Reommendations: Name: Mono Bobby Date: 10/17/2024 : 1960 Age: 64 y.o. Patient has a Medical Front Desk Specialist: Berger CONSUMER BANKER-PM Remaining battery longevity adequate. Lead integrity test [...] recommendations. Supporting reports can be found in [employer] media file. us Emelina DOSHI CV IMPLANTABLE [...] documented as of this encounter Care Teams Irb Compliance Coordinator Relationship Specialty Start Date End Date Asad Victor MD [address] [place] [address] PCP - General 10/07/22 documented as of this encounter
--- OUTSIDE RECORDS SUMMARY | 2024-10-16 14:45 | XMS_ITS | Encounter Summary ---
Author Organization Healthcare Address [address] [place] [address] Care Team Providers Care Human Services Case Manager Name Role Phone Asad Victor MD Primary Care Provider + [phone] Encounter Details Date Type Department Care Team (Latest Contact Info) Description 10/16/2024 2:45 PM EDT - 10/16/2024 11:59 PM EDT Hospital Encounter Cardiac Imaging [address] [place] [address] Discharge Disposition: Home or Self Care Social [...] drink first t dino in the morning (EYE-GUIDE RAIL CLEANER) to steady your nerves or to get [...] by mouth daily. 30 tablet 3 10/20/2024 5 docusate sodium (Colace) 100 MG capsule Take [...] Take 1 tablet by mouth daily. 09/28/2022 5 insulin aspart protamine-insulin aspart (NovoLOG Mix 70-30) (70-30) 100 UNIT/ML injection vial Inject 15 Units under the skin 2 times a day with meals. 10 mL 10/19/2024 5 insulin aspart protamine-insulin aspart (NovoLOG Mix 70-30) (70-30) 100 UNIT/ML injection Inject 12 Units under the skin 2 times a day with meals. 5 insulin lispro protamine-insulin lispro (HumaLOG Mix 75-25) [...] Info) Description 11/26/2024 2:00 PM EDT Appointment [facility] [address] [place] [address] 11/26/2024 2:30 PM EDT Appointment [facility] [address] [place] [address] 11/26/2024 3:20 PM EDT Office Visit [facility] [address] [place] [address] Elisabet Schuster PA [address] [facility] [address] [place] [address] 11/29/2024 2:30 PM EDT Office Visit [facility] [address] [place] [address] Oscar Appiah MD [address] [facility] [address] [place] [address] documented as of this encounter Goals Goal [...] Modality Other Narrative 10/17/2024 9:50 AM EDT [facility]: Pre-operative CIED Report Assessment and Sara-Procedural Reommendations: Name: Mono Bobby Date: 10/17/2024 : 1960 Age: 64 y.o. Patient has a Reversal Print Inspector: Berger SAP BW BI DEVELOPER-PM Remaining battery longevity adequate. Lead integrity [...] recommendations. Supporting reports can be found in EPIC media file. 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
--- OUTSIDE RECORDS SUMMARY | 2024-10-17 06:21 | XMS_ITS | Encounter Summary ---
Author Organization [facility] Address [address] [id number] Care Team Providers Care Taper Operator Name Role Phone Asad Victor MD Primary Care Provider [phone] Reason for Referral * Imaging (Routine) - Authorized Specialty Diagnoses / Procedures Referred By Susan t Referred To Contact Cardiology Diagnoses Critical limb ischemia of left lower extremity Pseudoaneurysm of left femoral artery (CMS/HCC) Procedures VAS US Arterial Duplex Lower Extremity Unilateral Left Terrell Gautam MD [address] [address] Phone: tel: fax: Referral ID Status Reason Start Date Expiration Date Visits Requested Visits Authorized [id number] Authorized Perform Procedure 10/19/2024 04/20/2026 1 1 * Imaging (Routine) - Authorized Specialty Diagnoses / Procedures Referred By Contac t Referred To Contact Cardiology Diagnoses Critical limb ischemia of left lower extremity Pseudoaneurysm of left femoral artery (CMS/HCC) Procedures VAS Ankle Brachial Index - Segmental Terrell Gautam MD [id number] [place] [address] Phone: tel: fax: Referral ID Status Reason Start Date Expiration Date Visits Requested Visits Authorized [id number] Authorized Perform Procedure 10/19/2024 04/20/2026 1 1 * Consultation (Routine) - Authorized Specialty Diagnoses / Procedures Referred By Contact Referred To Contact Vascular Surgery / [facility] Diagnoses Critical limb ischemia of left lower extremity Pseudoaneurysm of left femoral artery (CMS/HCC) Terrell Gautam MD [address] [place] [address] Phone: tel:[phone] fax:[phone] [facility] [address] [place] [address] 5th Floor [address] [place] [address] Phone: tel: fax: Referral ID Status Reason Start Date Expiration Date Visits Requested Visits Authorized [id number] Authorized Specialty Services Required 10/19/2024 04/20/2026 [address] Gautam, with SIL, arterial duplex Reason for Visit * Auth/Cert (Routine) Specialty Diagnoses / Procedures Referred By Susan t Referred To Contact Diagnoses Critical limb ischemia of left lower extremity Critical limb ischemia of left lower extremity [I70.222] Procedures NM VEIN BYPASS GRAFT,FEM-POP CREATION, BYPASS, ARTERIAL, FEMORAL TO POPLITEAL Terrell Gautam MD [address] [place] [address] Phone: tel: fax: P[facility] A OPERATING ROOM [address] [place] [address] Phone: tel: Referral ID Status Reason Start Date Expiration Date Visits Re quested Visits Authorized [id number] 1 1 Encounter Details Date Type Department Care Team (Latest Contact Info) Description 10/17/2024 6:21 AM EDT - 10/19/2024 12:39 PM EDT Hospital Encounter [facility] H Inpatient [address] [place] [id number] Terrell Gautam MD [address] [place] [address] Pseudoaneurysm of left femoral artery (CMS/HCC) [...] any time in the past 12 m [facility], were you homeless or living [...] first t dino in the morning (EYE-TILE PRESSER) to steady your nerves or to get rid of a hangover? 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 [id number] After Peripheral Artery Bypass Surgery: In the [...] home. Last Reviewed Date: 2023 00:00:00 ?? [id number] [employer]. All rights reserved. This information is not intended as a substitute for professional medical care. Always follow your healthcare professional's instructions. * Progress Notes - Emelina Friend - 10/19/2024 11:44 AM EDT Case Management Adult Progress Note Bev Bobby 64 y.o. male CSN: [id number] Admission: 10/17/2024 6:21 AM Primary Problem: Critical [...] if any other needs arise. Emelina Friend JAVA TECH, SYSTEM VALIDATION ENGINEER Social Work Case Management * Yuni Ramires Solis Davidon Keyla - 10/19/2024 11:44 AM EDT Images from the original note were not included. [id number] Peripheral Artery Disease (PAD) Peripheral artery disease [...] cause. Last Reviewed Date: 2024 00:00:00 ?? [id number] [employer]. All rights reserved. This information is not intended as a substitute for professional medical care. Always follow your healthcare professional's instructions. * Yuni Ramires - Keyla Chow - 10/19/2024 11:44 AM EDT Images from the original note were not included. [id number] Leg Artery Emergencies: Critical Limb Ischemia (CLI) [...] appointments. Last Reviewed Date: 2023 00:00:00 ?? 2297-1626 [employer]. All rights reserved. This information is not intended as a substitute for professional medical care. Always follow your healthcare professional's instructions. * Discharge Summary - Dandy Baltazar MD - 10/19/2024 11:31 AM EDT Hospitalization Admit Date/Time: 10/17/2024 6:21 AM Admitting Attending: Terrell Gautam Discharge Date: 10/19/24 Discharge Attending Physician: Nirmal Cueto MD PCP name and Address: Asad Victor MD (Inactive) [address] [place] [address] / [facility] [address] Referring provider name and address: Timothy Marques PA [address] [place] [address] [place] [address] Chief Concern, Brief History of Present Illness, and Hospital Course Bev Bobby is an 64 y.o. 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 He [...] sent to [facility] [place], [place] - [address] , [facility] [address] acetaminophen 500 MG tablet clopidogrel 75 MG [...] of water. 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 PARTICIPANTS IN CARE Visitors Present No Recreation Program Coordinator (if applicable) PRESENTATION Oxygen Oxygen Therapy: None [...] Level of Mobility Ambulatory- household only Mobility [place] Independent gait with device (rollator) History of [...] numbness in rodney) BED MOBILITY Level of [place] Physical/Non- physical Assist Adaptive Equipment Utilized Rolling/ Turning Scooting/ Bridging Modified independence (anteriorly to EOB) Bed rails Supine to Sit Modified [place] (to the right) (HOB flat) Bed rails Sit to Supine Interventions HOB flat to simulate home environment TRANSFERS Level of [place] Physical/Non- physical Assist Adaptive Equipment Utilized Sit [...] stable surfaces during transitions. AMBULATION Level of [place] Distance Adaptive Equipment Utilized Ambulation Standby assist, [...] Posture: Forward head, Rounded shoulders Level of [place] Balance Support Interventions Static Sit Independent Right [...] RW) STANDARDIZED ASSESSMENTS Standardized Assessments Standardized Assessments: [facility] 6-Clicks Mobility Assessment [facility] 6-Clicks Mobility Assessment Difficulty patient has turning [...] with a railing?: A little [facility] 6-Clicks Mobility Assessment Total : 22 ASSESSMENT [...] evaluation/session. Participants in Care Family/Caregiver Present: No Recreation Program Coordinator: Not Applicable Presentation Oxygen Therapy: None (Room [...] Level of Mobility: Ambulatory- household only Mobility [place]: Independent gait with device (rollator) History of [...] Mobility Bed Mobility Exam: Scooting/Bridging Level of [place]: Modified independence (anteriorly to EOB) Assistive Device: Bed rails Bed Mobility Exam: Supine to Sit Level of [place]: Modified [place] (to the right) Physical/Nonphysical Assist: (HOB flat) Assistive Device: Bed rails Transfers Transfer Exam: Sit to stand Level of [place]: Stand-by assist Physical/Nonphysical Assist: Supervision, Verbal Cues, Minimal cues Assistive Device: Walker, rolling Transfer Exam: Stand to Sit Level of [place]: Stand-by assist Physical/Nonphysical Assist: Supervision, Verbal Cues, [...] regarding toileting at this time. Standardized Assessments [facility] 6-Click Daily Activities Help from Other: Don/Doff Regular Lower Body Clothings: None Help From Other: Bathing: Little Help From Other: Toileting: None Help From Other: Don/Doff Upper Body Clothings: None Help From Other: Grooming: None Help From Other: Eating Meals: None [facility] 6 Click - Daily Activities Score: 23/24 [facility] Scoring Interpretation: Scores greater than 20.5 suggest [...] Note Bev Bobby 64 y.o. male CSN: [id number] Admission: 10/17/2024 6:21 AM Primary Problem: Critical limb ischemia of left lower extremity Transit Mixer Driver reviewed chart and spoke with patient to complete this Initial Case Management Assessment. PCP: Asad Victor MD (Inactive) - Dr. Palomo Preferred pharmacy is [facility] Emergency Contact: Extended Emergency Contact Information Primary Emergency Contact: Patti Hill Relation: Sister Recreation Program Coordinator needed? No Insurance: Primary Visit Coverage Payer Plan Sponsor Code Group Number Group Name [facility] REPLACEMENT [id number] Primary Visit Coverage Subscriber Subscriber ID Subscriber Name Subscriber N Subscriber Address [id number] BEV BOBBY [id number] [place] [address] Secondary Visit Coverage Payer Plan Sponsor Code Group Number Group Name [facility] Secondary Visit Coverage Subscriber Subscriber ID Subscriber Name Subscriber N Subscriber Address [id number] BEV BOBBY [id number] [place] [address] Patient information: Primary Caregiver: Self Daily Living Activities: Functional Status: Independent Living Arrangements: Alone Type of Residence: Private residence, Single Level [address] [place] [address] Current DME: Equipment Currently Used at Home: walker, rollator Income Information: Income Source: Retired Income/Expense Information: Income meets expenses Current Resources Utilized: Food [place] Housing Circumstances-Z Codes: Housing Circumstances (select all [...] Dialysis Services: None. Living Will/Advance Directive/Power of Airframe And Power Plant Mechanic /Guardian: Denied. Additional Comments: Patient is not medically ready for discharge. SW will continue to follow. Mariia Macedo SYSTEM VALIDATION ENGINEER * Care Plan - Emilia Alonso [...] Agree with above assessment and evaluation from resident/SENIOR NET PROGRAMMER. * Op Note - Terrell Gautam MD - 10/17/2024 8:52 AM EDT Operative Note Date: 10/17/24 Location: [facility] Name: Bev Bobby, : 1960, Diagnoses: Pre-op Diagnosis Critical limb ischemia of left lower extremity Common femoral artery pseudoaneurysm Post-op Diagnosis Critical limb ischemia of left lower extremity Common femoral artery pseudoaneurysm Procedure(s): Left common/superficial/profunda femoral thromboendarterectomy with bovine patch repair Left external iliac artery/MONOGRAM AND LETTER PASTER stent Attending Surgeon(s): * Terrell Gautam - Primary Banking Consultant(s): * Luna Beckett MD - Resident [...] Necessity Reasons Recent surgery contiguous with urinary tract/INSEAMER/colorectal 10/17/24 1900 Output (mL) 50 mL 10/18/24 08 Implants Type Name Action Serial No. VASCUGUARD 8 X 8 - [id number] Implanted STENT ENDOPROSTHESIS VIABAHN 9FR [id number] - [id number] Implanted [id number] Specimen: Specimens ID Source Frozen? 1 Other [...] and distal control. We then proceeded with [id number] exposure of the popliteal artery. A medial [...] balloon dilated thestent with a 9 mm [place]. We closed the arteriotomy with a single [...] 10/17/2024 8:52 AM EDT Date: 10/17/24 Location: [facility] Name: TYLER Hamm: 1960, Diagnoses: Pre-op Diagnosis Critical limb ischemia of left lower extremity Common femoral artery pseudoaneurysm Post-op Diagnosis Critical limb ischemia of left lower extremity Common femoral artery pseudoaneurysm Procedure(s): Left common/superficial/profunda femoral thromboendarterectomy with bovine patch repair Left external iliac artery/MONOGRAM AND LETTER PASTER stent Attending Surgeon(s): * Terrell Gautam - Primary Banking Consultant(s): * Luna Beckett MD - Resident - Assisting * Dandy Baltazar MD - Fellow Anesthesia: General ASA: III Blood Administration: Blood Product Administration History None Estimated Blood Loss: 300 mL Drains: Urethral Catheter Temperature probe 16 Fr. (Active) Implants Type Name Action Serial No. VASCUGUARD 8 X 8 - [id number] Implanted STENT ENDOPROSTHESIS VIABAHN 9FR [id number] - [id number] Implanted [id number] Specimen: Specimens ID Source Frozen? 1 Other [...] issues. 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 He previouslyunderwent thrombin injection. He reports pain in his calves. He presents today for scheduled left lower extremity femoral to ambug-lkt-cbiv popliteal bypass. Planned likely use PTFE. He [...] 16. Results Review {Vanishing Link Review Results :[id number] I have reviewed the latest lab and imaging results. Assessment & Plan Critical limb ischemia of left lower extremity Proceed with scheduled surgery left lower extremity femoral to ggudf-[id number]-[id number] popliteal artery bypass graft. Extensive discussion had [...] Info) Description 11/26/2024 2:00 PM EDT Appointment [facility] [address] [place] [address] 11/26/2024 2:30 PM EDT Appointment [facility] [address] [place] [address] 11/26/2024 3:20 PM EDT Office Visit [facility] [address] [place] [address] Elisabet Schuster PA [address] [facility] [address] [place] [address] 11/29/2024 2:30 PM EDT Office Visit [facility] [address] [place] [address] Oscar Appiah MD [address] [facility] [address] [place] [address] Pending Results Name Type Priority [...] PREPARE RBC STAT 10/17/2024 8:06 AM EDT NM VEIN BYPASS GRAFT,FEM-POP 10/17/2024 7:38 AM EDT [...] Comment 10/19/2024 11:42 AM EDT HEALTHCARE LAB Aquarium Specialist ID KamranJob 10/20/19 11:42 AM EDT HEALTHCARE LAB Device ID [id number] 10/19/2024 11:42 AM EDT HEALTHCARE LAB Specimen Type POC Capillary 10/19/2024 11:42 AM EDT [facility] Blood Capillary blood specimen / Unknown 10/19/2024 11:40 AM EDT 10/19/2024 11:42 AM EDT Terrell Gautam MD LAB POINT OF CARE TE ST DOCKED DEVICE UNSOLICITED RESULTS Final Result Performing Organization Address City/State/[facility] Co de Phone Number HEALTHCARE LAB [address] [place] [address] * (ABNORMAL) Protime-INR (10/19/2024 8:25 AM EDT) Prothrombin Time 17.5(H) 12.0 - 14.3 sec LAB COAGULATION METHOD 10/19/2024 9:25 AM EDT [facility] INR 1.4(H) 0.9 - 1.1 LAB COAGULATION METHOD 10/19/2024 9:25 AM EDT [facility] Blood Venous blood specimen / Unknown Venipuncture / Unknown 10/19/2024 8:25 AM EDT 10/19/2024 8:43 AM EDT Narrative [facility] - 10/19/2024 9:25 AM EDT OPTIMAL INR RANGES FOR PATIENT ON ORAL ANTICOAGULANT THERAPY Prevention of venous thromboembolism INR 2.0 to 3.0 In patients with heart disease: Atrial fibrillation INR 2.0 to 3.0 Valvular heart disease INR 2.0 to 3.0 Tissue heart valves INR 2.0 to 3.0 Mechanical prosthetic valves INR 2.5 to 3.5 Prevention of recurrent AL INR 2.5 to 3.5 us Nirmal Cueto MD LAB BLOOD ORDERABLES Final Result Performing Organization Address City/[facility]/[place] [address] * (ABNORMAL) Phosphorus (10/19/2024 8:25 AM EDT) Phosphorus, Plasma 2.2(L) 2.5 - 4.5 mg/dL 10/19/2024 9:12 AM EDT [facility] Blood Venous blood specimen / Unknown Venipuncture / Unknown 10/19/2024 8:25 AM EDT 10/19/2024 8:43 AM EDT us Nirmal Cueto MD LAB BLOOD ORDERABLES Final Result Performing Organization Address City/[facility]/ZIP Co de Phone Number [facility] [address] [place] [address] * Magnesium (10/19/2024 8:25 AM EDT) Magnesium, Plasma 2.1 1.9 - 2.4 mg/dL 10/19/2024 9:12 AM EDT [facility] Blood Venous blood specimen / Unknown Venipuncture / Unknown 10/19/2024 8:25 AM EDT 10/19/2024 8:43 AM EDT us Nirmal Cueto MD LAB BLOOD ORDERABLES Final Result [facility] [address] [place] [address] * (ABNORMAL) Basic metabolic panel (10/19/2024 8:25 AM EDT) Glucose, Plasma 191(H) 74 - 99 mg/dL 10/19/2024 9:12 AM EDT [facility] BUN, Plasma 18 8 - 23 mg/dL 10/19/2024 9:12 AM EDT [facility] Creatinine, Plasma 0.76 0.70 - 1.20 mg/dL 10/19/2024 9:12 AM EDT [facility] BUN/Creatinine Ratio 24 10/19/2024 9:12 AM EDT [facility] Sodium, Plasma 135(L) 136 - 145 mmol/L 10/19/2024 9:12 AM EDT [facility] Potassium, Plasma 4.1 3.6 - 4.9 mmol/L 10/19/2024 9:12 AM EDT [facility] Chloride, Plasma 104 97 - 107 mmol/L 10/19/2024 9:12 AM EDT [facility] CO2, Plasma 22 22 - 29 mmol/L 10/19/2024 9:12 AM EDT [facility] Anion Gap 9 6 - 16 mmol/L 10/19/2024 9:12 AM EDT [facility] Total Calcium, Plasma 8.4(L) 8.9 - 10.2 mg/dL 10/19/2024 9:12 AM EDT [facility] eGFRcr 99.7 mL/min/1.7 3m*2 10/19/2024 9:12 AM EDT [facility] Comment:Reported eGFRcr in m L/min/1.73m2 is based the CKD-EPI 2020 equation that does not use a race coefficient. Blood Venous blood specimen / Unknown Venipuncture / Unknown 10/19/2024 8:25 AM EDT 10/19/2024 8:43 AM EDT us Nirmal Cueto MD LAB BLOOD ORDERABLES Final Result [facility] [address] [place] [address] * (ABNORMAL) CBC W/O Differential (10/19/2024 8:25 AM EDT) WBC Count 14.10(H) 3.70 - 10.30 10*3/uL LAB HEMATOLOGY METHOD 10/19/2024 8:52 AM EDT [facility] RBC Count 2.61(L) 4.60 - 6.10 10*6/uL LAB HEMATOLOGY METHOD 10/19/2024 8:52 AM EDT [facility] HGB 8.0(L) 13.7 - 17.5 g/dL LAB HEMATOLOGY METHOD 10/19/2024 8:52 AM EDT [facility] HCT 24.3(L) 40.0 - 51.0 % LAB HEMATOLOGY METHOD 10/19/2024 8:52 AM EDT [facility] Platelet Count 318 155 - 369 10*3/uL LAB HEMATOLOGY METHOD 10/19/2024 8:52 AM EDT [facility] MCV 93 79 - 98 fL LAB HEMATOLOGY METHOD 10/19/2024 8:52 AM EDT [facility] MCH 30.7 26.0 - 32.0 pg LAB HEMATOLOGY METHOD 10/19/2024 8:52 AM EDT [facility] MCHC 32.9 30.7 - 35.5 g/dL LAB HEMATOLOGY METHOD 10/19/2024 8:52 AM EDT [facility] RDW 13.4 11.5 - 14.5 % LAB HEMATOLOGY METHOD 10/19/2024 8:52 AM EDT [facility] MPV 9.6 8.8 - 12.5 fL LAB HEMATOLOGY METHOD 10/19/2024 8:52 AM EDT [facility] nRBC 0.0 <=0.0 per 100 WBCs LAB HEMATOLOGY METHOD 10/19/2024 8:52 AM EDT [facility] Blood Venous blood specimen / Unknown Venipuncture / Unknown 10/19/2024 8:25 AM EDT 10/19/2024 8:44 AM EDT Nirmal Cueto MD LAB BLOOD ORDERABLES Final Result [facility] [address] [place] [address] * (ABNORMAL) POCT glucose meter (10/19/2024 7:35 AM EDT) [facility] POCT Glucose 187(H) 74 - 99 [...] 10/19/2024 7:37 AM EDT [facility] Aquarium Specialist ID Kamran, Job 10/20/19 7:37 AM EDT HEALTHCARE LAB Device ID [id number] 10/19/2024 7:37 AM EDT [facility]ARE LAB Specimen Type POC Capillary 10/19/2024 7:37 AM EDT [facility] Blood Capillary blood specimen / Unknown 10/19/2024 7:35 AM EDT 10/19/2024 7:37 AM EDT us Terrell Gautam MD LAB POINT OF CARE TE ST DOCKED DEVICE UNSOLICITED RESULTS Final Result [facility] [address] [place] [address] * (ABNORMAL) POCT glucose meter (10/18/2024 7:22 PM EDT) [facility] POCT Glucose 178(H) 74 - 99 [...] 10/18/2024 7:24 PM EDT [facility] Aquarium Specialist ID Jovan Mahesh 10/18/2024 7:24 PM EDT [facility] Device ID [id number] 10/18/2024 7:24 PM EDT [facility] Specimen Type POC Capillary 10/18/2024 7:24 PM EDT [facility] Blood Capillary blood specimen / Unknown 10/18/2024 7:22 PM EDT 10/18/2024 7:24 PM EDT us Terrell Gautam MD LAB POINT OF CARE TE ST DOCKED DEVICE UNSOLICITED RESULTS Final Result Performing Organization Address City/[facility]/ZIP Co de Phone Number [facility]ALTHCARE LAB [address] [place] [address] * (ABNORMAL) POCT glucose meter (10/18/2024 6:07 [...] Comment 10/18/2024 6:09 PM EDT [facility]ALTH[facility]ARE LAB Aquarium Specialist ID David Parks 10/18/2024 6:09 PM EDT HEALTHCARE LAB Device ID [id number] 10/18/2024 6:09 PM EDT [facility]ALTH[facility]ARE LAB Specimen Type POC Capillary 10/18/2024 6:09 PM EDT [facility] Blood Capillary blood specimen / Unknown 10/18/2024 6:07 PM EDT 10/18/2024 6:09 PM EDT us Terrell Gautam MD LAB POINT OF CARE TE ST DOCKED DEVICE UNSOLICITED RESULTS Final Result [facility] [address] [place] [address] * (ABNORMAL) POCT glucose meter (10/18/2024 11:56 [...] Comment 10/21/2024 7:42 AM EDT HEALTHCARE LAB Aquarium Specialist ID Venessa Marcano 10/21/2024 7:42 AM EDT [facility] Device ID [id number] 10/21/2024 7:42 AM EDT HEALTHCARE LAB Specimen Type POC Capillary 10/21/2024 7:42 AM EDT [facility] Blood Capillary blood specimen / Unknown 10/18/2024 11:56 AM EDT 10/21/2024 7:42 AM EDT Terrell Gautam MD LAB POINT OF CARE TE ST DOCKED DEVICE UNSOLICITED RESULTS Final Result Performing Organization Address City/State/[facility] Co de Phone Number [facility]ALTHCARE LAB [address] [place] [address] * (ABNORMAL) POCT glucose meter (10/18/2024 9:24 AM EDT) [facility] Signature POCT Glucose 322(H) 74 - [...] Comment 10/21/2024 7:42 AM EDT [facility]ALTH[facility]ARE LAB Aquarium Specialist ID Emilia Alonso 7:42 AM EDT HEALTHCARE LAB Device ID [id number] 10/21/2024 7:42 AM EDT [facility]ALTH[facility]ARE LAB Specimen Type POC Venous 10/21/2024 7:42 AM EDT [facility] Blood Venous blood specimen / Unknown 10/18/2024 9:24 AM EDT 10/21/2024 7:42 AM EDT us Terrell Gautam MD LAB POINT OF CARE TE ST DOCKED DEVICE UNSOLICITED RESULTS Final Result [facility] [address] [place] [address] * (ABNORMAL) POCT glucose meter (10/18/2024 7:36 [...] Comment 10/18/2024 7:38 AM EDT [facility]ALTHCARE LAB Aquarium Specialist ID Kizzy Godfrey 025 7:38 AM EDT HEALTHCARE LAB Device ID [id number] 10/18/2024 7:38 AM EDT [facility] Specimen Type POC Capillary 10/18/2024 7:38 AM EDT [facility] Blood Capillary blood specimen / Unknown 10/18/2024 7:36 AM EDT 10/18/2024 7:38 AM EDT us Terrell Gautam MD LAB POINT OF CARE TE ST DOCKED DEVICE UNSOLICITED RESULTS Final Result Performing Organization Address City/[facility]/ZIP Co de Phone Number [facility]ALTH[facility]ARE [facility] [address] [place] [address] * (ABNORMAL) CBC (10/18/2024 2:09 AM EDT) WBC Count 16.71(H) 3.70 - 10.30 10*3/uL LAB HEMATOLOGY METHOD 10/18/2024 2:33 AM EDT [facility] [facility] RBC Count 2.78(L) 4.60 - 6.10 10*6/uL LAB HEMATOLOGY METHOD 10/18/2024 2:33 AM EDT [facility] HGB 8.5(L) 13.7 - 17.5 g/dL LAB HEMATOLOGY METHOD 10/18/2024 2:33 AM EDT [facility] HCT 25.7(L) 40.0 - 51.0 % LAB HEMATOLOGY METHOD 10/18/2024 2:33 AM EDT [facility] Platelet Count 324 155 - 369 10*3/uL LAB HEMATOLOGY METHOD 10/18/2024 2:33 AM EDT [facility] MCV 92 79 - 98 fL LAB HEMATOLOGY METHOD 10/18/2024 2:33 AM EDT [facility] MCH 30.6 26.0 - 32.0 pg LAB HEMATOLOGY METHOD 10/18/2024 2:33 AM EDT [facility] MCHC 33.1 30.7 - 35.5 g/dL LAB HEMATOLOGY METHOD 10/18/2024 2:33 AM EDT [facility] RDW 13.3 11.5 - 14.5 % LAB HEMATOLOGY METHOD 10/18/2024 2:33 AM EDT [facility] MPV 9.4 8.8 - 12.5 fL LAB HEMATOLOGY METHOD 10/18/2024 2:33 AM EDT [facility] nRBC 0.0 <=0.0 per 100 WBCs LAB HEMATOLOGY METHOD 10/18/2024 2:33 AM EDT [facility] Blood Venous blood specimen / Unknown Venipuncture / Unknown 10/18/2024 2:09 AM EDT 10/18/2024 2:25 AM EDT Nirmal Cueto MD LAB BLOOD ORDERABLES Final Result [facility] [address] [place] [address] * (ABNORMAL) Basic metabolic panel (10/18/2024 2:09 AM EDT) Glucose, Plasma 206(H) 74 - 99 mg/dL 10/18/2024 2:53 AM EDT [facility] BUN, Plasma 24(H) 8 - 23 mg/dL 10/18/2024 2:53 AM EDT [facility] Creatinine, Plasma 1.17 0.70 - 1.20 mg/dL 10/18/2024 2:53 AM EDT [facility] BUN/Creatinine Ratio 21 10/18/2024 2:53 AM EDT [facility] Sodium, Plasma 136 136 - 145 mmol/L 10/18/2024 2:53 AM EDT [facility] Potassium, Plasma 4.8 3.6 - 4.9 mmol/L 10/18/2024 2:53 AM EDT [facility] Chloride, Plasma 104 97 - 107 mmol/L 10/18/2024 2:53 AM EDT [facility] CO2, Plasma 22 22 - 29 mmol/L 10/18/2024 2:53 AM EDT [facility] Anion Gap 10 6 - 16 mmol/L 10/18/2024 2:53 AM EDT [facility] Total Calcium, Plasma 8.5(L) 8.9 - 10.2 mg/dL 10/18/2024 2:53 AM EDT [facility] eGFRcr 69.2 mL/min/1.7 3m*2 10/18/2024 2:53 AM EDT [facility] Comment:Reported eGFRcr in m L/min/1.73m2 is based the CKD-EPI 2020 equation that does not use a race coefficient. Blood Venous blood specimen / Unknown Venipuncture / Unknown 10/18/2024 2:09 AM EDT 10/18/2024 2:25 AM EDT Nirmal Cueto MD LAB BLOOD ORDERABLES Final Result [facility] [address] [place] [address] * (ABNORMAL) Magnesium (10/18/2024 2:09 AM EDT) Magnesium, Plasma 1.8(L) 1.9 - 2.4 mg/dL 10/18/2024 2:53 AM EDT [facility] Blood Venous blood specimen / Unknown Venipuncture / Unknown 10/18/2024 2:09 AM EDT 10/18/2024 2:25 AM EDT us Nirmal Cueto MD LAB BLOOD ORDERABLES Final Result [facility] [address] [place] [address] * Phosphorus (10/18/2024 2:09 AM EDT) Phosphorus, Plasma 3.7 2.5 - 4.5 mg/dL 10/18/2024 2:53 AM EDT [facility] Blood Venous blood specimen / Unknown Venipuncture / Unknown 10/18/2024 2:09 AM EDT 10/18/2024 2:25 AM EDT Nirmal Cueto MD LAB BLOOD ORDERABLES Final Result Performing Organization Address [facility] Co de Phone Number [facility] [address] [place] [address] * (ABNORMAL) Protime-INR (10/18/2024 2:09 AM EDT) Prothrombin Time 14.5(H) 12.0 - 14.3 sec LAB COAGULATION METHOD 10/18/2024 2:53 AM EDT [facility] INR 1.1 0.9 - 1.1 LAB COAGULATION METHOD 10/18/2024 2:53 AM EDT [facility] Blood Venous blood specimen / Unknown Venipuncture / Unknown 10/18/2024 2:09 AM EDT 10/18/2024 2:25 AM EDT Narrative [facility] - 10/18/2024 2:53 AM EDT OPTIMAL INR RANGES FOR PATIENT ON ORAL ANTICOAGULANT THERAPY Prevention of venous thromboembolism INR 2.0 to 3.0 In patients with heart disease: Atrial fibrillation INR 2.0 to 3.0 Valvular heart disease INR 2.0 to 3.0 Tissue heart valves INR 2.0 to 3.0 Mechanical prosthetic valves INR 2.5 to 3.5 Prevention of recurrent AL INR 2.5 to 3.5 us Nirmal Cueto MD LAB BLOOD ORDERABLES Final Result Performing Organization Address [facility]/ZIP Co de Phone Number [facility] [address] [place] [address] * (ABNORMAL) POCT glucose meter (10/18/2024 2:08 AM EDT) [facility] POCT Glucose 202(H) 74 - 99 [...] Comment 10/18/2024 2:10 AM EDT [facility] Aquarium Specialist ID Jourdan Grimes II 10/18/2024 2:10 AM EDT [facility] Device ID [id number] 10/18/2024 2:10 AM EDT [facility] Specimen Type POC Capillary 10/18/2024 2:10 AM EDT [facility] Blood Capillary blood specimen / Unknown 10/18/2024 2:08 AM EDT 10/18/2024 2:10 AM EDT us Terrell Gautam MD LAB POINT OF CARE TE ST DOCKED DEVICE UNSOLICITED RESULTS Final Result Performing Organization Address City/State/[facility] Co de Phone Number [facility] [address] [place] [address] * (ABNORMAL) POCT glucose meter (10/17/2024 10:07 PM EDT) [facility] POCT Glucose 300(H) 74 - 99 [...] 10/17/2024 10:10 PM EDT [facility] Aquarium Specialist ID Jourdan Grimes II 10/17/2024 10:10 PM EDT [facility] Device ID [id number] 10/17/2024 10:10 PM EDT [facility] Specimen Type POC Capillary 10/17/2024 10:10 PM EDT [facility] Blood Capillary blood specimen / Unknown 10/17/2024 10:07 PM EDT 10/17/2024 10:10 PM EDT Terrell Gautam MD LAB POINT OF CARE TE ST DOCKED DEVICE UNSOLICITED RESULTS Final Result Performing Organization Address City/[facility]/ZIP Co de Phone Number [facility] [address] [place] [address] * (ABNORMAL) POCT glucose meter (10/17/2024 8:07 [...] Comment 10/17/2024 8:10 PM EDT [facility] Aquarium Specialist ID Jourdan Grimes II 10/17/2024 8:10 PM EDT [facility] Device ID [id number] 10/17/2024 8:10 PM EDT [facility] Specimen Type POC Capillary 10/17/2024 8:10 PM EDT [facility] Blood Capillary blood specimen / Unknown 10/17/2024 8:07 PM EDT 10/17/2024 8:10 PM EDT Terrell Gautam MD LAB POINT OF CARE TE ST DOCKED DEVICE UNSOLICITED RESULTS Final Result [facility] [address] [place] [address] * (ABNORMAL) POCT glucose meter (10/17/2024 4:01 [...] Comment 10/17/2024 4:03 PM EDT [facility] Aquarium Specialist ID Keisha Waller 10/17/2024 4:03 PM EDT [facility] Device ID [id number] 10/17/2024 4:03 PM EDT [facility] Specimen Type POC Capillary 10/17/2024 4:03 PM EDT [facility] Blood Capillary blood specimen / Unknown 10/17/2024 4:01 PM EDT 10/17/2024 4:03 PM EDT us Terrell Gautam MD LAB POINT OF CARE TE ST DOCKED DEVICE UNSOLICITED RESULTS Final Result Performing Organization Address City/State/[facility] Co de Phone Number [facility] [address] [place] [address] * (ABNORMAL) POCT glucose meter (10/17/2024 1:25 PM EDT) [facility] Signature POCT Glucose 225(H) 74 - [...] Comment 10/17/2024 1:27 PM EDT [facility] Aquarium Specialist ID Kizzy Godfrey 025 1:27 PM EDT [facility]ALTH[facility] LAB Device ID [id number] 10/17/2024 1:27 PM EDT [facility] Specimen Type POC Capillary 10/17/2024 1:27 PM EDT [facility] Blood Capillary blood specimen / Unknown 10/17/2024 1:25 PM EDT 10/17/2024 1:27 PM EDT us Terrell Gautam MD LAB POINT OF CARE TE ST DOCKED DEVICE UNSOLICITED RESULTS Final Result Performing Organization Address City/[facility] Co de Phone Number [facility] [address] [place] [address] * [place] Less than 1 Hour Intraoperative (10/17/2024 1:18 PM EDT) Narrative IMAGING - 10/17/2024 2:05 PM EDT Images were obtained for surgical purposes. See Terrell Gautam's surgical note in the patient's chart for the findings. us Terrell Gautam MD IMG FLUOROSCOPY PROCEDURES Fi nal Result Performing Organization Address [facility] Co de Phone Number IMAGING * POCT ACT (10/17/2024 12:23 PM EDT) ACT+ (HIGH RANGE) 211 68 - 600 Seconds 10/29/2024 7:28 AM EDT [facility] Aquarium Specialist ID Donna Mcmillan 10/29/2024 7:28 AM EDT [facility] ACT Device ID [id number] 10/29/2024 7:28 AM EDT [facility] Comment 10/29/2024 7:28 AM EDT [facility] Comment: ACT performed by staff [...] UNSOLICITED RESULTS Final Result Performing Organization Address [facility] Co de Phone Number [facility] [address] LAB [address] [place] [address] * (ABNORMAL) Blood gas, arterial (10/17/2024 11:48 AM EDT) pH, Arterial 7.34 7.31 - 7.42 LAB HEMATOLOGY METHOD 10/17/2024 11:54 AM EDT [facility] pCO2, Arterial 41 32 - 45 mmHg LAB HEMATOLOGY METHOD 10/17/2024 11:54 AM EDT [facility] pO2, Arterial 202 >80 mmHg LAB HEMATOLOGY METHOD 10/17/2024 11:54 AM EDT [facility] SO2, Measured, Arterial 100(H) 94 - 98 % LAB HEMATOLOGY METHOD 10/17/2024 11:54 AM EDT [facility] Base Excess, Arterial -3.2(L) -2.0 - 3.0 mmol/L LAB HEMATOLOGY METHOD 10/17/2024 11:54 AM EDT [facility] Bicarbonate, Calculated, Arterial 22 22 - 26 mmol/L LAB HEMATOLOGY METHOD 10/17/2024 11:54 AM EDT [facility] Hematocrit, Whole Blood 28.6(L) 40.0 - 51.0 % LAB HEMATOLOGY METHOD 10/17/2024 11:54 AM EDT [facility] Sodium, Whole Blood 137 136 - 145 mmol/L LAB HEMATOLOGY METHOD 10/17/2024 11:54 AM EDT [facility] Potassium, Whole Blood 4.5 3.6 - 4.9 mmol/L LAB HEMATOLOGY METHOD 10/17/2024 11:54 AM EDT [facility] Chloride, Whole Blood 112(H) 97 - 107 mmol/L LAB HEMATOLOGY METHOD 10/17/2024 11:54 AM EDT [facility] Glucose, Whole Blood 201(H) 74 - 99 mg/dL LAB HEMATOLOGY METHOD 10/17/2024 11:54 AM EDT [facility] Ionized Calcium, Whole Blood 4.8 4.6 - 5.1 mg/dL LAB HEMATOLOGY METHOD 10/17/2024 11:54 AM EDT [facility] Lactate, Arterial, Whole Blood 2.3(H) 0.5 - 1.6 mmol/L LAB HEMATOLOGY METHOD 10/17/2024 11:54 AM EDT [facility] Blood Arterial blood specimen / Unknown Arterial Puncture / Unknown 10/17/2024 11:48 AM EDT 10/17/2024 11:53 AM EDT us Jenna Lopez CRNA LAB BLOOD ORDERABLES Final Re sult [facility] [address] [place] [address] * POCT ACT (10/17/2024 11:41 AM EDT) ACT+ (HIGH RANGE) 175 68 - 600 Seconds 10/29/2024 7:28 AM EDT [facility] LAB Aquarium Specialist ID Oneyda Alicea 10/29/2024 7:28 AM EDT [facility] ACT Device ID [id number] 10/29/2024 7:28 AM EDT [facility] Comment 10/29/2024 7:28 AM EDT [facility] Comment: ACT performed by staff [...] UNSOLICITED RESULTS Final Result Performing Organization Address City/[facility]/ZIP Co de Phone Number [facility] [address] LAB [address] [place] [address] * POCT ACT (10/17/2024 11:11 AM EDT) ACT+ (HIGH RANGE) 252 68 - 600 Seconds 10/29/2024 7:28 AM EDT [facility] Aquarium Specialist ID Donna Mcmillan 10/29/2024 7:28 AM EDT [facility] ACT Device ID [id number] 10/29/2024 7:28 AM EDT [facility] Comment 10/29/2024 7:28 AM EDT [facility] Comment: ACT performed by staff [...] ST DOCKED DEVICE UNSOLICITED RESULTS Final Result [facility] [address] LAB [address] [place] [address] * (ABNORMAL) Blood gas, arterial (10/17/2024 10:46 AM EDT) pH, Arterial 7.35 7.31 - 7.42 LAB HEMATOLOGY METHOD 10/17/2024 10:56 AM EDT [facility] pCO2, Arterial 42 32 - 45 mmHg LAB HEMATOLOGY METHOD 10/17/2024 10:56 AM EDT [facility] pO2, Arterial 161 >80 mmHg LAB HEMATOLOGY METHOD 10/17/2024 10:56 AM EDT [facility] SO2, Measured, Arterial 100(H) 94 - 98 % LAB HEMATOLOGY METHOD 10/17/2024 10:56 AM EDT [facility] Base Excess, Arterial -2.2(L) -2.0 - 3.0 mmol/L LAB HEMATOLOGY METHOD 10/17/2024 10:56 AM EDT [facility] Bicarbonate, Calculated, Arterial 23 22 - 26 mmol/L LAB HEMATOLOGY METHOD 10/17/2024 10:56 AM EDT [facility] Hematocrit, Whole Blood 29.9(L) 40.0 - 51.0 % LAB HEMATOLOGY METHOD 10/17/2024 10:56 AM EDT [facility] Sodium, Whole Blood 138 136 - 145 mmol/L LAB HEMATOLOGY METHOD 10/17/2024 10:56 AM EDT [facility] Potassium, Whole Blood 4.0 3.6 - 4.9 mmol/L LAB HEMATOLOGY METHOD 10/17/2024 10:56 AM EDT [facility] Chloride, Whole Blood 110(H) 97 - 107 mmol/L LAB HEMATOLOGY METHOD 10/17/2024 10:56 AM EDT [facility] Glucose, Whole Blood 174(H) 74 - 99 mg/dL LAB HEMATOLOGY METHOD 10/17/2024 10:56 AM EDT [facility] Ionized Calcium, Whole Blood 5.1 4.6 - 5.1 mg/dL LAB HEMATOLOGY METHOD 10/17/2024 10:56 AM EDT [facility] Lactate, Arterial, Whole Blood 1.4 0.5 - 1.6 mmol/L LAB HEMATOLOGY METHOD 10/17/2024 10:56 AM EDT [facility] Blood Arterial blood specimen / Unknown Arterial Puncture / Unknown 10/17/2024 10:46 AM EDT 10/17/2024 10:54 AM EDT us Jenna Lopez CRNA LAB BLOOD ORDERABLES Final Re sult [facility] [address] [place] [address] * POCT ACT (10/17/2024 10:37 AM EDT) ACT+ (HIGH RANGE) 206 68 - 600 Seconds 10/29/2024 7:28 AM EDT [facility] Aquarium Specialist ID Donna Mcmillan 10/29/2024 7:28 AM EDT [facility] ACT Device ID [id number] 10/29/2024 7:28 AM EDT [facility] Comment 10/29/2024 7:28 AM EDT [facility] Comment: ACT performed by staff [...] ST DOCKED DEVICE UNSOLICITED RESULTS Final Result [facility] [address] LAB [address] [place] [address] * Surgical Pathology Exam (10/17/2024 10:27 AM EDT) Case Report Surgical Pathology Case: [id number] Authorizing Provider: Terrell Gautam MD Collected: 10/17/2024 1027 Ordering Location: [facility] Received: 10/17/2024 1325 Pathologist: Haydee Osborne MD Specimen: Other (specify site), left common femoral plaque 10/21/2024 10:16 AM EDT [facility] Final Diagnosis A. LEFT COMMON FEMORAL PLAQUE, EXCISION: - CALCIFIED PLAQUE 10/21/2024 10:16 AM EDT [facility] at 1016 EDT Clinical Information Critical limb ischemia of left lower extremity [I70.222] 10/21/2024 10:16 AM EDT [facility] Gross Description A. LEFT COMMON FEMORAL PLAQUE Received in formalin labeled l eft common femoral plaque , is one aggregate of red-gabriel hard portions of plaque measuring 3.7 x 2.5 x 0.9 cm. The specimen is serially sectioned and lead customer service representative sections are submitted in cassette A1. Cold Time: <1m Kenia Aceves 10/21/2024 10:16 AM EDT [facility] Note: A resident was involved in the service. I attest I examined the relevant preparations for the specimens and confirmed the diagnosis or interpretation. 10/21/2024 10:16 AM EDT [facility] Tissue Topography unknown / Unknown 10/17/2024 10:27 AM EDT 10/17/2024 1:25 PM EDT Comment:Pre-op diagnosis: Critical limb ischemia of left lower extremity [I70.222] us Terrell Gautam MD LAB PATHOLOGY ORDERABLES Gwen grimaldo Result [facility] [address] [place] [address] * POCT ACT (10/17/2024 10:03 AM EDT) ACT+ (HIGH RANGE) 244 68 - 600 Seconds 10/29/2024 7:28 AM EDT [facility]ALTH[facility]ARE LAB Aquarium Specialist ID Donna Mcmillan 10/29/2024 7:28 AM EDT [facility] ACT Device ID [id number] 10/29/2024 7:28 AM EDT [facility] Comment 10/29/2024 7:28 AM EDT [facility] Comment: ACT performed by staff [...] ST DOCKED DEVICE UNSOLICITED RESULTS Final Result [facility] [address] LAB [address] [place] [address] * (ABNORMAL) Blood gas, arterial (10/17/2024 9:45 AM EDT) pH, Arterial 7.37 7.31 - 7.42 LAB HEMATOLOGY METHOD 10/17/2024 9:55 AM EDT [facility] pCO2, Arterial 43 32 - 45 mmHg LAB HEMATOLOGY METHOD 10/17/2024 9:55 AM EDT [facility] pO2, Arterial 177 >80 mmHg LAB HEMATOLOGY METHOD 10/17/2024 9:55 AM EDT [facility] SO2, Measured, Arterial 100(H) 94 - 98 % LAB HEMATOLOGY METHOD 10/17/2024 9:55 AM EDT [facility] Base Excess, Arterial -0.5 -2.0 - 3.0 mmol/L LAB HEMATOLOGY METHOD 10/17/2024 9:55 AM EDT [facility] Bicarbonate, Calculated, Arterial 25 22 - 26 mmol/L LAB HEMATOLOGY METHOD 10/17/2024 9:55 AM EDT [facility] Hematocrit, Whole Blood 30.0(L) 40.0 - 51.0 % LAB HEMATOLOGY METHOD 10/17/2024 9:55 AM EDT [facility] Sodium, Whole Blood 137 136 - 145 mmol/L LAB HEMATOLOGY METHOD 10/17/2024 9:55 AM EDT [facility] Potassium, Whole Blood 4.3 3.6 - 4.9 mmol/L LAB HEMATOLOGY METHOD 10/17/2024 9:55 AM EDT [facility] Chloride, Whole Blood 108(H) 97 - 107 mmol/L LAB HEMATOLOGY METHOD 10/17/2024 9:55 AM EDT [facility] Glucose, Whole Blood 191(H) 74 - 99 mg/dL LAB HEMATOLOGY METHOD 10/17/2024 9:55 AM EDT [facility] Ionized Calcium, Whole Blood 5.0 4.6 - 5.1 mg/dL LAB HEMATOLOGY METHOD 10/17/2024 9:55 AM EDT [facility] Lactate, Arterial, Whole Blood 1.3 0.5 - 1.6 mmol/L LAB HEMATOLOGY METHOD 10/17/2024 9:55 AM EDT [facility] Blood Arterial blood specimen / Unknown Arterial Line / Unknown 10/17/2024 9:45 AM EDT 10/17/2024 9:52 AM EDT us Jenna Lopez [facility] LAB BLOOD ORDERABLES Final Re sult [facility] [address] [place] [address] * (ABNORMAL) Blood gas, arterial (10/17/2024 8:47 AM EDT) pH, Arterial 7.37 7.31 - 7.42 LAB HEMATOLOGY METHOD 10/17/2024 8:59 AM EDT [facility] pCO2, Arterial 43 32 - 45 mmHg LAB HEMATOLOGY METHOD 10/17/2024 8:59 AM EDT [facility] pO2, Arterial 205 >80 mmHg LAB HEMATOLOGY METHOD 10/17/2024 8:59 AM EDT [facility] SO2, Measured, Arterial 100(H) 94 - 98 % LAB HEMATOLOGY METHOD 10/17/2024 8:59 AM EDT [facility] Base Excess, Arterial -0.3 -2.0 - 3.0 mmol/L LAB HEMATOLOGY METHOD 10/17/2024 8:59 AM EDT [facility] Bicarbonate, Calculated, Arterial 25 22 - 26 mmol/L LAB HEMATOLOGY METHOD 10/17/2024 8:59 AM EDT [facility] Hematocrit, Whole Blood 31.3(L) 40.0 - 51.0 % LAB HEMATOLOGY METHOD 10/17/2024 8:59 AM EDT [facility] Sodium, Whole Blood 138 136 - 145 mmol/L LAB HEMATOLOGY METHOD 10/17/2024 8:59 AM EDT [facility] Potassium, Whole Blood 4.0 3.6 - 4.9 mmol/L LAB HEMATOLOGY METHOD 10/17/2024 8:59 AM EDT [facility] Chloride, Whole Blood 108(H) 97 - 107 mmol/L LAB HEMATOLOGY METHOD 10/17/2024 8:59 AM EDT [facility] Glucose, Whole Blood 162(H) 74 - 99 mg/dL LAB HEMATOLOGY METHOD 10/17/2024 8:59 AM EDT [facility] Ionized Calcium, Whole Blood 5.2(H) 4.6 - 5.1 mg/dL LAB HEMATOLOGY METHOD 10/17/2024 8:59 AM EDT [facility] Lactate, Arterial, Whole Blood 1.7(H) 0.5 - 1.6 mmol/L LAB HEMATOLOGY METHOD 10/17/2024 8:59 AM EDT [facility] Blood Arterial blood specimen / Unknown Arterial Puncture / Unknown 10/17/2024 8:47 AM EDT 10/17/2024 8:58 AM EDT us Jenna Lopez [facility] LAB BLOOD ORDERABLES Final Re sult [facility] [address] [place] [address] * POCT ACT (10/17/2024 8:46 AM EDT) ACT+ (HIGH RANGE) 101 68 - 600 Seconds 10/29/2024 7:28 AM EDT [facility]ALTHCARE LAB Aquarium Specialist ID Donna Mcmillan 10/29/2024 7:28 AM EDT [facility]ALTH[facility] ACT Device ID [id number] 10/29/2024 7:28 AM EDT [facility] Comment 10/29/2024 7:28 AM EDT [facility] Comment: ACT performed by staff [...] UNSOLICITED RESULTS Final Result Performing Organization Address [facility] de Phone Number HEALTHCARE LAB [address] LAB [address] [place] [address] * Type and Screen (10/17/2024 7:19 AM EDT) Pathologist [facility] ABO/Rh A Negative 10/17/2024 7:04 AM EDT BLOOD BANK Antibody Screen Negative 10/17/2024 7:04 AM EDT BLOOD BANK Specimen Expiration 10/20/2024 23:59 10/17/2024 7:04 AM EDT [facility]LO[facility] BANK Blood Venous blood specimen / Unknown Venipuncture / Unknown 10/17/2024 7:19 AM EDT 10/17/2024 7:28 AM EDT us Maria Fernanda Mccallum MD LAB BLOOD BANK TEST ORDERAB LES Final Result Performing Organization Address [facility] de Phone Number BLOOD BANK [address] [place] [address], * (ABNORMAL) POCT glucose meter (10/17/2024 6:44 AM EDT) POCT Glucose 178(H) 74 - 99 mg/dL 10/17/2024 6:49 AM EDT [facility] Comment:Accuracy of a glucos e result [...] testing. Comment 10/17/2024 6:49 AM EDT [facility] Aquarium Specialist ID Hunter Burroughs 10/18/19 6:49 AM EDT HEALTHCARE LAB Device ID [id number] 10/17/2024 6:49 AM EDT [facility]ALTH[facility]ARE LAB Specimen Type POC Capillary 10/17/2024 6:49 AM EDT [facility]ALTH[facility] Blood Capillary blood specimen / Unknown 10/17/2024 6:44 AM EDT 10/17/2024 6:49 AM EDT Terrell Gautam MD LAB POINT OF CARE TE ST DOCKED DEVICE UNSOLICITED RESULTS Final Result [facility] [address] [place] [address] documented in this encounter Visit Diagnoses Diagnosis [...] Reason: Order changed)2102 (Given - Provider: Jourdan rGimes II, RN) 0612 (Not Given - Provider: [...] documented as of this encounter Care Teams Taper Operator Relationship Specialty Start Date End Date Asad Victor MD [address] [place] [address] PCP - General 10/07/22 documented as of this encounter
--- OUTSIDE RECORDS SUMMARY | 2024-10-17 07:51 | XMS_ITS | Encounter Summary ---
Author Organization [facility] Address [address] [id number] Care Team Providers Care Property Management Intern Name Role Phone Asad Victor MD Primary Care Provider + [phone] Reason for Visit * Auth/Cert (Routine) Specialty Diagnoses / Procedures Referred By Contac t Referred To Contact Diagnoses Critical limb ischemia of left lower extremity Critical limb ischemia of left lower extremity [I70.222] Procedures [place] VEIN BYPASS GRAFT,FEM-POP CREATION, BYPASS, ARTERIAL, FEMORAL TO POPLITEAL Terrell Gautam MD [address] [facility] [address] [place] [address] Phone: tel: fax: PAV A OPERATING ROOM [address] [place] [address] Phone: tel: Referral ID Status Reason Start Date Expiration Date Visits Re quested Visits Authorized [id number] 1 1 Encounter Details Date Type Department Care Team (Late st Contact Info) Description 10/17/2024 7:51 AM EDT Anesthesia Event [facility]PERATING ROOM [address] [place] [address] Maria Fernanda Mccallum MD [address] [place] [address] Anesthesia Record Procedure Summary Procedure [...] Hand; Site Prep: Chlorhexidine ; Local Anesth: [place]; Technique: Anatomical landmarks; Inserted by: CHRISTIAN Acuna; [...] in the past [address] [facility], were you homeless or living [...] drink first t dino in the morning (EYE-INDOOR LANDSCAPE ARCHITECT) to steady your nerves or to get [...] * Anesthesia Postprocedure Evaluation - Jenna Lopez, STOCK GRADER - 10/17/2024 1:29 PM EDT Patient: Mono [...] by Swetha Villareal MD Staffing Performed: ISH STOCK GRADER: Jenna Lopez CRNA * Anesthesia Procedure Notes - Jenna Lopez CRNA - 10/17/2024 9:00 AM EDT Associated Order(s): Airway Airway Date/Time: 10/17/2024 8:03 AM Reason: elective Airway not difficult General Information and Staff Patient location during procedure: OR STOCK GRADER: Jenna Lopez CRNA Performed: STOCK GRADER Patient Condition Indications for airway management: anesthesia [...] T2DM, HLD, HTN, RLS who presented to [facility] with a large left [...] note 09/25/24 (media) + CAD s/p multiple W[place]'s and 3V CABG 02/2019, 2 stents prior to CABG Atrial Fibrillation with RVR s/p CABG + carotid artery disease s/p R CEA 2016 + 3rd degree AV block CHILD WELFARE ASSISTANT-P placed 08/2023 for Wenkeback with 11 sec pause + HLD + HTN - controlled + PAD 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 CORONARY ANGIOPLASTY Left Coronary Angiography With Concomitant Left Heart Catheterization from [employer] ??? CORONARY ARTERY BYPASS GRAFT N/A 2018 [...] Info) Description 11/26/2024 2:00 PM EDT Appointment [facility] [address] [place] [address] 11/26/2024 2:30 PM EDT Appointment [facility] [address] [place] [address] 11/26/2024 3:20 PM EDT Office Visit [facility] [address] [place] [address] Elisabet Schuster PA [address] [facility] [address] [place] [address] 11/29/2024 2:30 PM EDT Office Visit [facility] [address] [place] [address] Oscar Appiah MD [address] [facility] [address] [place] [address] documented as of this encounter Goals Goal [...] ANESTHESIA PLACEHOLDER Routine 10/17/2024 8:03 AM EDT [place] AN ELECTIVE ENDOTRACHEAL AIRWAY Routine 10/17/2024 8:03 [...] Performed by Swetha Villareal MD Staffing Performed: STOCK GRADER STOCK GRADER: Jenna Lopez CRNA Maria Fernanda Mccallum MD ANESTHESIA ORDERABLES Edite d Result - Final * [place] AN ELECTIVE ENDOTRACHEAL AIRWAY, PB ANESTHESIA PLACEHOLDER (10/17/2024 8:03 AM EDT) Narrative Jenna Lopez CRNA - 10/17/2024 8:03 AM EDT Jenna oLpez CRNA 10/17/2024 9:00 AM Airway Date/Time: 10/17/2024 8:03 AM Reason: elective Airway not difficult General Information and Staff Patient location during procedure: OR STOCK GRADER: Jenna Lopez CRNA Performed: ISH Patient Condition [...] Mccallum MD ANESTHESIA ORDERABLES Final Result * [place] AN POCUS CARDIAC PROCDOC (10/17/2024 7:18 AM [...] Trace AR. The images were Saved in [employer]. The study was technically adequate. Comments: I [...] (Dilaudid) injection Intravenous, As needed, Starting on Ydaira 10/17/24 at 0910, Until Yadira 10/17/24 at [...] Starting on Yadira 10/17/24 at 0751, Until Ydaira 10/17/24 at 1329, Routine New Bag 10/17/2024 [...] documented as of this encounter Care Teams Property Management Intern Relationship Specialty Start Date End Date Asad Victor MD [address] [place] [address] PCP - General 10/07/22 documented as of this encounter
--- OUTSIDE RECORDS SUMMARY | 2024-10-17 08:00 | XMS_ITS | Encounter Summary ---
Author Organization [facility] Address [address] [place] [address] Care Team Providers Care Control Systems Technician Name Role Phone Asad Victor MD Primary Care Provider + [phone] Reason for Visit * Auth/Cert (Routine) Specialty Diagnoses / Procedures Referred By Contac t Referred To Contact Diagnoses Critical limb ischemia of left lower extremity Critical limb ischemia of left lower extremity [I70.222] Procedures CA VEIN BYPASS GRAFT,FEM-POP CREATION, BYPASS, ARTERIAL, FEMORAL TO POPLITEAL Terrell Gautam MD [address] [address] Phone: tel: fax: [facility] [address] [place] [address] Phone: tel: Referral ID Status Reason Start Date Expiration Date Visits Re quested Visits Authorized [id number] 1 1 Encounter Details Date Type Department Care Team (Late st Contact Info) Description 10/17/2024 8:00 AM EDT - 10/17/2024 2:50 PM EDT Surgery [facility] [address] [place] [address] Terrell Gautam MD [address] [address] CREATION, BYPASS, ARTERIAL, FEMORAL TO POPLITEAL [87245 (CPT )] Surgery Details Date/Time Status Location [...] in the past 12 m [facility], were you homeless or living [...] drink first t dino in the morning (EYE-MANAGER CREDIT COLLECTIONS) to steady your nerves or to get rid of a hangover? 0 10/18/2021 CAGE Questionnaire Score 0 022 Utilities Answer Date Recorded In the past 12 months has th e Balloon, gas, oil, or water Markerly threatened to shut off services in your [...] provided Taken 10/17/20242107 by Jourdan Grimes II, feedmobile driver Review/Management: medications reviewed Problem: Skin Injury [...] Ongoing, Progressing Intervention: Promote Activity and Functional Hettinger Flowsheets (Taken 10/19/2024 1048) Self-Care Promotion: BADL personal objects within reach meal set-up provided * Yuni DiorJOSE MANUEL - Keyla Chow - 10/19/2024 11:45 AM EDT Images from the original note were not included. [id number] After Peripheral Artery Bypass Surgery: In the [...] home. Last Reviewed Date: 2023 00:00:00 ?? [id number] [employer]. All rights reserved. This information is not intended as a substitute for professional medical care. Always follow your healthcare professional's instructions. * Progress Notes - Emelina Friend - 10/19/2024 11:44 AM EDT Case Management Adult Progress Note Bev Bobby 64 y.o. male CSN: [id number] Admission: 10/17/2024 6:21 AM Primary Problem: Critical [...] if any other needs arise. Emelina Friend FIREMAN, NURSING PROGRAM COORDINATOR Social Work Case Management * Keyla Reyes - 10/19/2024 11:44 AM EDT Images from the original note were not included. [id number] Peripheral Artery Disease (PAD) Peripheral artery disease [...] cause. Last Reviewed Date: 2024 00:00:00 ?? [id number] [employer]. All rights reserved. This information is not intended as a substitute for professional medical care. Always follow your healthcare professional's instructions. * Yuni Ramires - Keyla Chow - 10/19/2024 11:44 AM EDT Images from the original note were not included. 35151 Leg Artery Emergencies: Critical Limb Ischemia (CLI) [...] appointments. Last Reviewed Date: 2023 00:00:00 ?? [id number] [employer]. All rights reserved. This information is not intended as a substitute for professional medical care. Always follow your healthcare professional's instructions. * Discharge Summary - Dandy Baltazar MD - 10/19/2024 11:31 AM EDT Hospitalization Admit Date/Time: 10/17/2024 6:21 AM Admitting Attending: Terrell Gautam Discharge Date: 10/19/24 Discharge Attending Physician: Nirmal Cueto MD PCP name and Address: Asad Victor MD (Inactive) [address] [facility] [address] Referring provider name and address: Timothy Maruqes PA [address] [facility] [address] [place] [address] Chief Concern, Brief History of Present Illness, and Hospital Course Bev Bobby is an 64 y.o. 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 He [...] sent to [facility] [place], [place] - [address] [facility] [address] [facility] [address] [facility] [address] acetaminophen 500 MG tablet clopidogrel 75 MG [...] of water. Outpatient Follow-Up Follow up with [facility] Associated diagnoses: Balloon like swelling in an artery of the leg Critical limb ischemia of left lower extremity [address] [facility] 5th Floor Wing D, [address] 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 He [...] provided Taken 10/17/20242107 by Jourdan Grimes II feedmobile driver Review/Management: medications reviewed Problem: Skin Injury [...] Ongoing, Progressing Intervention: Promote Activity and Functional Hettinger Flowsheets (Taken 10/19/2024 1048) Self-Care Promotion: BADL [...] evaluation. PARTICIPANTS IN CARE Visitors Present No Production Team Member (if applicable) PRESENTATION Oxygen Oxygen Therapy: None [...] Level of Mobility Ambulatory- household only Mobility Hettinger Independent gait with device (rollator) History of [...] numbness in rodney) BED MOBILITY Level of Hettinger Physical/Non- physical Assist Adaptive Equipment Utilized Rolling/ Turning Scooting/ Bridging Modified independence (anteriorly to EOB) Bed rails Supine to Sit Modified Hettinger (to the right) (HOB flat) Bed rails Sit to Supine Interventions HOB flat to simulate home environment TRANSFERS Level of Hettinger Physical/Non- physical Assist Adaptive Equipment Utilized Sit [...] stable surfaces during transitions. AMBULATION Level of Hettinger Distance Adaptive Equipment Utilized Ambulation Standby assist, [...] Posture: Forward head, Rounded shoulders Level of Hettinger Balance Support Interventions Static Sit Independent Right [...] 3-5 steps with a railing?: A little [facility] 6-Clicks Mobility Assessment Total : [...] evaluation/session. Participants in Care Family/Caregiver Present: No Production Team Member: Not Applicable Presentation Oxygen Therapy: None (Room [...] Level of Mobility: Ambulatory- household only Mobility Hettinger: Independent gait with device (rollator) History of [...] Mobility Bed Mobility Exam: Scooting/Bridging Level of Hettinger: Modified independence (anteriorly to EOB) Assistive Device: Bed rails Bed Mobility Exam: Supine to Sit Level of Hettinger: Modified Hettinger (to the right) Physical/Nonphysical Assist: (HOB flat) Assistive Device: Bed rails Transfers Transfer Exam: Sit to stand Level of Hettinger: Stand-by assist Physical/Nonphysical Assist: Supervision, Verbal Cues, Minimal cues Assistive Device: Walker, rolling Transfer Exam: Stand to Sit Level of Hettinger: Stand-by assist Physical/Nonphysical Assist: Supervision, Verbal Cues, [...] regarding toileting at this time. Standardized Assessments [facility] 6-Click Daily Activities Help from Other: Don/Doff Regular Lower Body Clothings: None Help From Other: Bathing: Little Help From Other: Toileting: None Help From Other: Don/Doff Upper Body Clothings: None Help From Other: Grooming: None Help From Other: Eating Meals: None [facility] 6 Click - Daily Activities Score: 23/24 [facility] Scoring Interpretation: Scores greater than [...] Note Bev Bobby 64 y.o. male CSN: [id number] Admission: 10/17/2024 6:21 AM Primary Problem: Critical limb ischemia of left lower extremity Lighting Engineering Technician reviewed chart and spoke with patient to complete this Initial Case Management Assessment. PCP: Asad Victor MD (Inactive) - Dr. Palomo Preferred pharmacy is [facility] Emergency Contact: Extended Emergency Contact Information Primary Emergency Contact: Patti Hill Relation: Sister Production Team Member needed? No Insurance: Primary Visit Coverage Payer Plan Sponsor Code Group Number Group Name [facility] MEDICARE [facility] MEDICARE REPLACEMENT [id number] Primary Visit Coverage Subscriber Subscriber ID Subscriber Name Subscriber [facility] Subscriber Address [id number] BEV BOBBY [id number] [place] [address] Secondary Visit Coverage Payer Plan Sponsor Code Group Number Group Name [employer] [facility] [facility] Secondary Visit Coverage Subscriber Subscriber ID Subscriber Name Subscriber N Subscriber Address [id number] BEV BOBBY [id number] [place] [address] Patient information: Primary Caregiver: Self Daily Living Activities: Functional Status: Independent Living Arrangements: Alone Type of Residence: Private residence, Single Level [address] [place] [address] Current DME: Equipment Currently Used at Home: joy monterroso Income Information: Income Source: Retired Income/Expense Information: Income meets expenses Current Resources Utilized: Food Sheldon Housing Circumstances-Z Codes: Housing Circumstances (select all [...] Dialysis Services: None. Living Will/Advance Directive/Power of Roaster Helper /Guardian: Denied. Additional Comments: Patient is not medically ready for discharge. SW will continue to follow. Mariia Monterroso NURSING PROGRAM COORDINATOR * Care Plan - Emilia Alonso [...] from the original note were not included. [facility] Department of Surgery Division of Vascular Surgery [...] Prevention: activity supervised assistive device/personal items within [facility] fall prevention program maintained lighting adjusted [...] Prevention: activity supervised assistive device/personal items within [facility] fall prevention program maintained lighting adjusted [...] Agree with above assessment and evaluation from resident/SPONGE PRESS OPERATOR. * Op Note - Terrell Gautam MD - 10/17/2024 8:52 AM EDT Operative Note Date: 10/17/24 Location: [facility] Name: Bev Bobby, : 1960, Diagnoses: Pre-op Diagnosis Critical limb ischemia of left lower extremity Common femoral artery pseudoaneurysm Post-op Diagnosis Critical limb ischemia of left lower extremity Common femoral artery pseudoaneurysm Procedure(s): Left common/superficial/profunda femoral thromboendarterectomy with bovine patch repair Left external iliac artery/[employer] stent Attending Surgeon(s): * Terrell Gautam - Primary Member Service Representative(s): * [place] Beckett MD - Resident - [...] Necessity Reasons Recent surgery contiguous with urinary tract/INSPECTOR HOT FORGINGS/colorectal 10/17/24 1900 Output (mL) 50 mL 10/18/24 0800 Implants Type Name Action Serial No. VASCUGUARD 8 X 8 - [id number] Implanted STENT ENDOPROSTHESIS VIABAHN 9FR [id number] - [id number] Implanted [id number] Specimen: Specimens ID Source Frozen? 1 Other [...] and distal control. We then proceeded with gkojt-enw-ucvn exposure of the popliteal artery. A medial [...] balloon dilated thestent with a 9 mm [place]. We closed the arteriotomy with a single [...] 10/17/2024 8:52 AM EDT Date: 10/17/24 Location: [facility] Name: Bev Bobby, : 1960, Diagnoses: Pre-op Diagnosis Critical limb ischemia of left lower extremity Common femoral artery pseudoaneurysm Post-op Diagnosis Critical limb ischemia of left lower extremity Common femoral artery pseudoaneurysm Procedure(s): Left common/superficial/profunda femoral thromboendarterectomy with bovine patch repair Left external iliac artery/[employer] stent Attending Surgeon(s): * Terrell Gautam - Primary Member Service Representative(s): * [place] Beckett MD - Resident - Assisting * Dandy Baltazar MD - Fellow Anesthesia: General ASA: III Blood Administration: Blood Product Administration History None Estimated Blood Loss: 300 mL Drains: Urethral Catheter Temperature probe 16 Fr. (Active) Implants Type Name Action Serial No. VASCUGUARD 8 X 8 - [id number] Implanted STENT ENDOPROSTHESIS VIABAHN 9FR [id number] - [id number] Implanted [id number] Specimen: Specimens ID Source Frozen? 1 Other [...] issues. 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 He previouslyunderwent thrombin injection. He reports pain in his calves. He presents today for scheduled left lower extremity femoral to kobiv-mez-seuq popliteal bypass. Planned likely use PTFE. He [...] 16. Results Review {Vanishing Link Review Results :[id number] I have reviewed the latest lab and imaging results. Assessment & Plan Critical limb ischemia of left lower extremity Proceed with scheduled surgery left lower extremity femoral to clbuz-qfw-[id number] popliteal artery bypass graft. Extensive discussion had [...] Info) Description 11/26/2024 2:00 PM EDT Appointment [facility] [address] [place] [address] 11/26/2024 2:30 PM EDT Appointment [facility] [address] Floor [address] [place] [address] 11/26/2024 3:20 PM EDT Office Visit [facility] [address] [place] [address] Elisabet Schuster PA [address] [facility] [address] [place] [address] 11/29/2024 2:30 PM EDT Office Visit [facility] [address] [place] [address] Oscar Appiah MD [address] [facility] [address] [place] [address] Pending Results Name Type Priority Associated Diagnoses [...] PREPARE RBC STAT 10/17/2024 8:06 AM EDT CA VEIN BYPASS GRAFT,FEM-POP 10/17/2024 7:38 AM EDT [...] Comment 10/19/2024 11:42 AM EDT HEALTHCARE LAB Rail Technician ID KamranJob 10/20/19 11:42 AM EDT HEALTHCARE LAB Device ID [id number] 10/19/2024 11:42 AM EDT HEALTHCARE LAB Specimen [...] HOSPITAL Co de Phone Number HEALTHCARE LAB [address] [place] [address] * (ABNORMAL) Protime-INR (10/19/2024 8:25 AM EDT) Pathologist [facility] Prothrombin Time 17.5(H) 12.0 - 14.3 sec LAB COAGULATION METHOD 10/19/2024 9:[address] [facility] INR 1.4(H) 0.9 - 1.1 LAB COAGULATION METHOD 10/19/2024 9:[address] [facility] Blood Venous blood specimen / Unknown Venipuncture / Unknown 10/19/2024 8:25 AM EDT 10/19/2024 8:[address] [facility] - 10/19/2024 9:25 AM EDT [...] BLOOD ORDERABLES Final Result Performing Organization Address City/[facility]/ZIP Co de Phone Number [facility] [address] [place] [address] * (ABNORMAL) Phosphorus (10/19/2024 8:25 AM EDT) Phosphorus, Plasma 2.2(L) 2.5 - 4.5 mg/dL 10/19/2024 9:[address] [facility] Blood Venous blood specimen / Unknown Venipuncture / Unknown 10/19/2024 8:25 AM EDT 10/19/2024 8:43 AM EDT us Nirmal Cueto MD LAB BLOOD ORDERABLES Final Result Performing Organization Address City/[facility] Co de Phone Number [facility] [address] [place] [address] * Magnesium (10/19/2024 8:25 AM EDT) Magnesium, Plasma 2.1 1.9 - 2.4 mg/dL 10/19/2024 9:[address] [facility] Blood Venous blood specimen / Unknown Venipuncture / Unknown 10/19/2024 8:25 AM EDT 10/19/2024 8:43 AM EDT Nirmal Cueto MD LAB BLOOD ORDERABLES Final Result Performing Organization Address City/[facility]/ZIP Co de Phone Number [facility] [address] [place] [address] * (ABNORMAL) Basic metabolic panel (10/19/2024 8:25 AM EDT) Glucose, Plasma 191(H) 74 - 99 mg/dL 10/19/2024 9:[address] [facility] BUN, Plasma 18 8 - 23 mg/dL 10/19/2024 9:[address] [facility] Creatinine, Plasma 0.76 0.70 - 1.20 mg/dL 10/19/2024 9:[address] [facility] BUN/Creatinine Ratio 24 10/19/2024 9:[address] [facility] Sodium, Plasma 135(L) 136 - 145 mmol/L 10/19/2024 9:[address] [facility] Potassium, Plasma 4.1 3.6 - 4.9 mmol/L 10/19/2024 9:[address] [facility] Chloride, Plasma 104 97 - 107 mmol/L 10/19/2024 9:[address] [facility] CO2, Plasma 22 22 - 29 mmol/L 10/19/2024 9:[address] [facility] Anion Gap 9 6 - 16 mmol/L 10/19/2024 9:[address] [facility] Total Calcium, Plasma 8.4(L) 8.9 - 10.2 mg/dL 10/19/2024 9:[address] [facility] eGFRcr 99.7 mL/min/1.7 3m*2 10/19/2024 9:[address] [facility] Comment:Reported eGFRcr in m L/min/1.73m2 is based the CKD-EPI 2020 equation that does not use a race coefficient. Blood Venous blood specimen / Unknown Venipuncture / Unknown 10/19/2024 8:25 AM EDT 10/19/2024 8:43 AM EDT us Nirmal Cueto MD LAB BLOOD ORDERABLES Final Result [facility] [address] [place] [address] * (ABNORMAL) CBC W/O Differential (10/19/2024 8:25 AM EDT) WBC Count 14.10(H) 3.70 - 10.30 10*3/uL LAB HEMATOLOGY METHOD 10/19/2024 8:[address] [facility] RBC Count 2.61(L) 4.60 - 6.10 10*6/uL LAB HEMATOLOGY METHOD 10/19/2024 8:[address] [facility] HGB 8.0(L) 13.7 - 17.5 g/dL LAB HEMATOLOGY METHOD 10/19/2024 8:[address] [facility] HCT 24.3(L) 40.0 - 51.0 % LAB HEMATOLOGY METHOD 10/19/2024 8:[address] [facility] Platelet Count 318 155 - 369 10*3/uL LAB HEMATOLOGY METHOD 10/19/2024 8:[address] [facility] MCV 93 79 - 98 fL LAB HEMATOLOGY METHOD 10/19/2024 8:[address] [facility] MCH 30.7 26.0 - 32.0 pg LAB HEMATOLOGY METHOD 10/19/2024 8:[address] [facility] MCHC 32.9 30.7 - 35.5 g/dL LAB HEMATOLOGY METHOD 10/19/2024 8:[address] [facility] RDW 13.4 11.5 - 14.5 % LAB HEMATOLOGY METHOD 10/19/2024 8:[address] [facility] MPV 9.6 8.8 - 12.5 fL LAB HEMATOLOGY METHOD 10/19/2024 8:[address] [facility] nRBC 0.0 <=0.0 per 100 WBCs LAB HEMATOLOGY METHOD 10/19/2024 8:[address] [facility] Blood Venous blood specimen / Unknown Venipuncture / Unknown 10/19/2024 8:25 AM EDT 10/19/2024 8:44 AM EDT us Nirmal Cueto MD LAB BLOOD ORDERABLES Final Result [facility] [address] [place] [address] * (ABNORMAL) POCT glucose meter (10/19/2024 7:35 AM EDT) [facility] POCT Glucose 187(H) 74 - 99 mg/dL 10/19/2024 7:37 AM EDT [facility] Comment:Accuracy of a glucos e result [...] Comment 10/19/2024 7:37 AM EDT HEALTHCARE LAB Rail Technician ID Job Andrew 10/20/19 7:37 AM EDT HEALTHCARE LAB Device ID [id number] 10/19/2024 7:37 AM EDT HEALTHCARE LAB Specimen Type POC Capillary 10/19/2024 7:37 AM EDT HEALTHCARE LAB Blood Capillary blood specimen / Unknown 10/19/2024 7:35 AM EDT 10/19/2024 7:37 AM EDT us Terrell Gautam MD LAB POINT OF CARE TE ST DOCKED DEVICE UNSOLICITED RESULTS Final Result Performing Organization Address City/State/[facility] Co de Phone Number HEALTHCARE LAB [address] [place] [address] * (ABNORMAL) POCT glucose meter (10/18/2024 7:22 [...] Comment 10/18/2024 7:24 PM EDT HEALTHCARE LAB Rail Technician ID Mahesh Aldana 10/18/2024 7:24 PM EDT HEALTHCARE LAB Device ID [id number] 10/18/2024 7:24 PM EDT HEALTHCARE LAB Specimen Type POC Capillary 10/18/2024 7:24 PM EDT HEALTHCARE LAB Blood Capillary blood specimen / Unknown 10/18/2024 7:22 PM EDT 10/18/2024 7:24 PM EDT us Terrell Gautam MD LAB POINT OF CARE TE ST DOCKED DEVICE UNSOLICITED RESULTS Final Result Performing Organization Address City/[facility] Co de Phone Number HEALTHCARE LAB [address] [place] [address] * (ABNORMAL) POCT glucose meter (10/18/2024 6:07 PM EDT) [facility] POCT Glucose 167(H) 74 - 99 [...] Comment 10/18/2024 6:09 PM EDT HEALTHCARE LAB Rail Technician ID David Parks 10/18/2024 6:09 PM EDT HEALTHCARE LAB Device ID [id number] 10/18/2024 6:09 PM EDT [facility] Specimen Type POC Capillary 10/18/2024 6:09 PM EDT [facility] Blood Capillary blood specimen / Unknown 10/18/2024 6:07 PM EDT 10/18/2024 6:09 PM EDT Terrell Gautam MD LAB POINT OF CARE TE ST DOCKED DEVICE UNSOLICITED RESULTS Final Result Performing Organization Address City/[facility] Co de Phone Number HEALTHCARE LAB [address] [place] [address] * (ABNORMAL) POCT glucose meter (10/18/2024 11:56 AM EDT) [facility] POCT Glucose 233(H) 74 - 99 [...] 10/21/2024 7:42 AM EDT [facility] Rail Technician ID Venessa Marcano 10/21/2024 7:42 AM EDT HEALTHCARE LAB Device ID [id number] 10/21/2024 7:42 AM EDT HEALTHCARE LAB Specimen Type POC Capillary 10/21/2024 7:42 AM EDT HEALTHCARE LAB Blood Capillary blood specimen / Unknown 10/18/2024 11:56 AM EDT 10/21/2024 7:42 AM EDT us Terrell Gautam MD LAB POINT OF CARE TE ST DOCKED DEVICE UNSOLICITED RESULTS Final Result Performing Organization Address City/[facility] Co de Phone Number [facility] [address] [place] [address] * (ABNORMAL) POCT glucose meter (10/18/2024 9:24 AM EDT) [facility] POCT Glucose 322(H) 74 - 99 [...] Comment 10/21/2024 7:42 AM EDT HEALTHCARE LAB Rail Technician ID Emilia Alonso 7:42 AM EDT HEALTHCARE LAB Device ID [id number] 10/21/2024 7:42 AM EDT HEALTHCARE LAB Specimen Type POC Venous 10/21/2024 7:42 AM EDT HEALTHCARE LAB Blood Venous blood specimen / Unknown 10/18/2024 9:24 AM EDT 10/21/2024 7:42 AM EDT us Terrell Gautam MD LAB POINT OF CARE TE ST DOCKED DEVICE UNSOLICITED RESULTS Final Result Performing Organization Address City/[facility]/ZIP Co de Phone Number [facility] [address] [place] [address] * (ABNORMAL) POCT glucose meter (10/18/2024 7:36 AM EDT) [facility] POCT Glucose 215(H) 74 - [...] Comment 10/18/2024 7:38 AM EDT HEALTHCARE LAB Rail Technician ID Kizzy Godfrey 025 7:38 AM EDT HEALTHCARE LAB Device ID [id number] 10/18/2024 7:38 AM EDT [facility] Specimen Type POC Capillary 10/18/2024 7:38 AM EDT [facility] Blood Capillary blood specimen / Unknown 10/18/2024 7:36 AM EDT 10/18/2024 7:38 AM EDT us Terrell Gautam MD LAB POINT OF CARE TE ST DOCKED DEVICE UNSOLICITED RESULTS Final Result Performing Organization Address City/State/[facility] Co de Phone Number HEALTHCARE LAB [address] [place], [place] [id number] * (ABNORMAL) CBC (10/18/2024 2:09 AM EDT) [facility] WBC Count 16.71(H) 3.70 - 10.30 10*3/uL LAB HEMATOLOGY METHOD 10/18/2024 2:[address] [facility] RBC Count 2.78(L) 4.60 - 6.10 10*6/uL LAB HEMATOLOGY METHOD 10/18/2024 2:[address] [facility] HGB 8.5(L) 13.7 - 17.5 g/dL LAB HEMATOLOGY METHOD 10/18/2024 2:[address] [facility] HCT 25.7(L) 40.0 - 51.0 % LAB HEMATOLOGY METHOD 10/18/2024 2:[address] [facility] Platelet Count 324 155 - 369 10*3/uL LAB HEMATOLOGY METHOD 10/18/2024 2:[address] [facility] MCV 92 79 - 98 fL LAB HEMATOLOGY METHOD 10/18/2024 2:[address] [facility] MCH 30.6 26.0 - 32.0 pg LAB HEMATOLOGY METHOD 10/18/2024 2:[address] [facility] MCHC 33.1 30.7 - 35.5 g/dL LAB HEMATOLOGY METHOD 10/18/2024 2:[address] [facility] RDW 13.3 11.5 - 14.5 % LAB HEMATOLOGY METHOD 10/18/2024 2:[address] [facility] MPV 9.4 8.8 - 12.5 fL LAB HEMATOLOGY METHOD 10/18/2024 2:[address] [facility] nRBC 0.0 <=0.0 per 100 WBCs LAB HEMATOLOGY METHOD 10/18/2024 2:[address] [facility] Blood Venous blood specimen / Unknown Venipuncture / Unknown 10/18/2024 2:09 AM EDT 10/18/2024 2:25 AM EDT Nirmal Cueto MD LAB BLOOD ORDERABLES Final Result [facility] [address] [place] [address] * (ABNORMAL) Basic metabolic panel (10/18/2024 2:09 AM EDT) Glucose, Plasma 206(H) 74 - 99 mg/dL 10/18/2024 2:[address] [facility] BUN, Plasma 24(H) 8 - 23 mg/dL 10/18/2024 2:[address] [facility] Creatinine, Plasma 1.17 0.70 - 1.20 mg/dL 10/18/2024 2:[address] [facility] BUN/Creatinine Ratio 21 10/18/2024 2:[address] [facility] Sodium, Plasma 136 136 - 145 mmol/L 10/18/2024 2:[address] [facility] Potassium, Plasma 4.8 3.6 - 4.9 mmol/L 10/18/2024 2:[address] [facility] Chloride, Plasma 104 97 - 107 mmol/L 10/18/2024 2:[address] [facility] CO2, Plasma 22 22 - 29 mmol/L 10/18/2024 2:[address] [facility] Anion Gap 10 6 - 16 mmol/L 10/18/2024 2:[address] [facility] Total Calcium, Plasma 8.5(L) 8.9 - 10.2 mg/dL 10/18/2024 2:[address] [facility] eGFRcr 69.2 mL/min/1.7 3m*2 10/18/2024 2:[address] [facility] Comment:Reported eGFRcr in m L/min/1.73m2 is based the CKD-EPI 2020 equation that does not use a race coefficient. Blood Venous blood specimen / Unknown Venipuncture / Unknown 10/18/2024 2:09 AM EDT 10/18/2024 2:25 AM EDT Nirmal Cueto MD LAB BLOOD ORDERABLES Final Result Performing Organization Address City/[facility]/ZIP Co de Phone Number [facility] [address] [place] [address] * (ABNORMAL) Magnesium (10/18/2024 2:09 AM EDT) Magnesium, Plasma 1.8(L) 1.9 - 2.4 mg/dL 10/18/2024 2:[address] [facility] Blood Venous blood specimen / Unknown Venipuncture / Unknown 10/18/2024 2:09 AM EDT 10/18/2024 2:25 AM EDT Nirmal Cueto MD LAB BLOOD ORDERABLES Final Result [facility] [address] [place] [address] * Phosphorus (10/18/2024 2:09 AM EDT) Phosphorus, Plasma 3.7 2.5 - 4.5 mg/dL 10/18/2024 2:[address] [facility] Blood Venous blood specimen / Unknown Venipuncture / Unknown 10/18/2024 2:09 AM EDT 10/18/2024 2:25 AM EDT Nirmal Cueto MD LAB BLOOD ORDERABLES Final Result Performing Organization Address [facility] Co de Phone Number [facility] [address] [place] [address] * (ABNORMAL) Protime-INR (10/18/2024 2:09 AM EDT) Prothrombin Time 14.5(H) 12.0 - 14.3 sec LAB COAGULATION METHOD 10/18/2024 2:[address] [facility] INR 1.1 0.9 - 1.1 LAB COAGULATION METHOD 10/18/2024 2:[address] [facility] Blood Venous blood specimen / Unknown Venipuncture / Unknown 10/18/2024 2:09 AM EDT 10/18/2024 2:[address] [facility] - 10/18/2024 2:53 AM EDT [...] BLOOD ORDERABLES Final Result Performing Organization Address City/[facility]/ZIP Co de Phone Number [facility] [address] [place] [address] * (ABNORMAL) POCT glucose meter (10/18/2024 2:08 AM EDT) POCT Glucose 202(H) 74 - 99 mg/dL 10/18/2024 2:10 AM EDT [facility] Comment:Accuracy of a glucos e [...] Comment 10/18/2024 2:10 AM EDT [facility] Rail Technician ID Jourdan Grimes II 10/18/2024 2:10 AM EDT [facility]ALTH[facility]ARE LAB Device ID [id number] 10/18/2024 2:10 AM EDT [facility] Specimen Type POC Capillary 10/18/2024 2:10 AM EDT [facility] Blood Capillary blood specimen / Unknown 10/18/2024 2:08 AM EDT 10/18/2024 2:10 AM EDT us Terrell Gautam MD LAB POINT OF CARE TE ST DOCKED DEVICE UNSOLICITED RESULTS Final Result Performing Organization Address City/State/[facility] Co de Phone Number [facility] [address] [place] [address] * (ABNORMAL) POCT glucose meter (10/17/2024 10:07 PM EDT) [facility] POCT Glucose 300(H) 74 - [...] Comment 10/17/2024 10:10 PM EDT [facility]ALTH[facility]ARE LAB Rail Technician ID Jourdan Grimes II 10/17/2024 10:10 PM EDT [facility]ALTH[facility]ARE LAB Device ID [id number] 10/17/2024 10:10 PM EDT [facility] LAB Specimen Type POC Capillary 10/17/2024 10:10 PM EDT [facility] Blood Capillary blood specimen / Unknown 10/17/2024 10:07 PM EDT 10/17/2024 10:10 PM EDT us Terrell Gautam MD LAB POINT OF CARE TE ST DOCKED DEVICE UNSOLICITED RESULTS Final Result Performing Organization Address [facility] Co de Phone Number HEALTHCARE LAB [address] [place] [address] * (ABNORMAL) POCT glucose meter (10/17/2024 8:07 PM EDT) [facility] POCT Glucose 391(H) 74 - 99 [...] Comment 10/17/2024 8:10 PM EDT [facility]ALTH[facility]ARE LAB Rail Technician ID Cornelio WALTERS Jourdan 10/17/2024 8:10 PM EDT HEALTH[facility]ARE LAB Device ID [id number] 10/17/2024 8:10 PM EDT [facility] Specimen Type POC Capillary 10/17/2024 8:10 PM EDT [facility] Blood Capillary blood specimen / Unknown 10/17/2024 8:07 PM EDT 10/17/2024 8:10 PM EDT Terrell Gautam MD LAB POINT OF CARE TE ST DOCKED DEVICE UNSOLICITED RESULTS Final Result Performing Organization Address [facility] de Phone Number [facility] [address] [place] [address] * (ABNORMAL) POCT glucose meter (10/17/2024 4:01 PM EDT) [facility] POCT Glucose 249(H) 74 - 99 [...] 10/17/2024 4:03 PM EDT [facility] Rail Technician ID Chelsieamanda Keisha 10/17/2024 4:03 PM EDT HEALTHCARE LAB Device ID [id number] 10/17/2024 4:03 PM EDT [facility] Specimen Type POC Capillary 10/17/2024 4:03 PM EDT [facility] Blood Capillary blood specimen / Unknown 10/17/2024 4:01 PM EDT 10/17/2024 4:03 PM EDT us Terrell Gautam MD LAB POINT OF CARE TE ST DOCKED DEVICE UNSOLICITED RESULTS Final Result Performing Organization Address City/[facility]/ZIP Co de Phone Number [facility] [address] [place] [address] * (ABNORMAL) POCT glucose meter (10/17/2024 1:25 PM EDT) [facility] POCT Glucose 225(H) 74 - [...] 10/17/2024 1:27 PM EDT [facility] Rail Technician ID Kizzy Godfrey 025 1:27 PM EDT [facility] Device ID [id number] 10/17/2024 1:27 PM EDT [facility]ARE LAB Specimen Type POC Capillary 10/17/2024 1:27 PM EDT [facility] LAB Blood Capillary blood specimen / Unknown 10/17/2024 1:25 PM EDT 10/17/2024 1:27 PM EDT us Terrell Gautam MD LAB POINT OF CARE TE ST DOCKED DEVICE UNSOLICITED RESULTS Final Result Performing Organization Address City/[facility] Co de Phone Number [facility] [address] [place] [address] * [place] Less than 1 Hour Intraoperative [...] Seconds 10/29/2024 7:28 AM EDT HEALTHCARE LAB Rail Technician ID Donna Mcmillan 10/29/2024 7:28 AM EDT [facility] LAB ACT Device ID [id number] 10/29/2024 7:28 AM EDT [facility]ALTH[facility]ARE LAB Comment 10/29/2024 7:[address] [facility] Comment: ACT performed by staff [...] UNSOLICITED RESULTS Final Result Performing Organization Address City/[facility] Co de Phone Number [facility]ARE LAB [address] LAB [address] [place] [address] * (ABNORMAL) Blood gas, arterial (10/17/2024 11:48 AM EDT) pH, Arterial 7.34 7.31 - 7.42 LAB HEMATOLOGY METHOD 10/17/2024 11:[address] [facility] pCO2, Arterial 41 32 - 45 mmHg LAB HEMATOLOGY METHOD 10/17/2024 11:[address] [facility] pO2, Arterial 202 >80 mmHg LAB HEMATOLOGY METHOD 10/17/2024 11:[address] [facility] SO2, Measured, Arterial 100(H) 94 - 98 % LAB HEMATOLOGY METHOD 10/17/2024 11:[address] [facility] Base Excess, Arterial -3.2(L) -2.0 - 3.0 mmol/L LAB HEMATOLOGY METHOD 10/17/2024 11:[address] [facility] Bicarbonate, Calculated, Arterial 22 22 - 26 mmol/L LAB HEMATOLOGY METHOD 10/17/2024 11:[address] [facility] Hematocrit, Whole Blood 28.6(L) 40.0 - 51.0 % LAB HEMATOLOGY METHOD 10/17/2024 11:[address] [facility] Sodium, Whole Blood 137 136 - 145 mmol/L LAB HEMATOLOGY METHOD 10/17/2024 11:[address] [facility] Potassium, Whole Blood 4.5 3.6 - 4.9 mmol/L LAB HEMATOLOGY METHOD 10/17/2024 11:[address] [facility] Chloride, Whole Blood 112(H) 97 - 107 mmol/L LAB HEMATOLOGY METHOD 10/17/2024 11:[address] [facility] Glucose, Whole Blood 201(H) 74 - 99 mg/dL LAB HEMATOLOGY METHOD 10/17/2024 11:[address] [facility] Ionized Calcium, Whole Blood 4.8 4.6 - 5.1 mg/dL LAB HEMATOLOGY METHOD 10/17/2024 11:[address] [facility] Lactate, Arterial, Whole Blood 2.3(H) 0.5 - 1.6 mmol/L LAB HEMATOLOGY METHOD 10/17/2024 11:[address] [facility] Blood Arterial blood specimen / Unknown Arterial Puncture / Unknown 10/17/2024 11:48 AM EDT 10/17/2024 11:53 AM EDT us Jenna Lopez SPONGE PRESS OPERATOR LAB BLOOD ORDERABLES Final Re sult [facility] [address] [place] [address] * POCT ACT (10/17/2024 11:41 AM EDT) ACT+ (HIGH RANGE) 175 68 - 600 Seconds 10/29/2024 7:28 AM EDT [facility] Rail Technician ID Oneyda Alicea 10/29/2024 7:28 AM EDT [facility] ACT Device ID [id number] 10/29/2024 7:28 AM EDT HEALTHCARE LAB Comment 10/29/2024 7:[address] [facility] Comment: ACT performed by staff [...] Result Performing Organization Address [facility] Co de Phone Number [facility] [address] [place] [address] [place] [address] * POCT ACT (10/17/2024 11:11 AM EDT) ACT+ (HIGH RANGE) 252 68 - 600 Seconds 10/29/2024 7:28 AM EDT HEALTHCARE LAB Rail Technician ID Donna Mcmillan 10/29/2024 7:28 AM EDT [facility]ALTH[facility]ARE LAB ACT Device ID [id number] 10/29/2024 7:28 AM EDT [facility] Comment 10/29/2024 7:[address] [facility] Comment: ACT performed by staff [...] Result Performing Organization Address [facility] Co de Phone Number [facility] [address] [place], [place] [address] [address] [place] [address] * (ABNORMAL) Blood gas, arterial (10/17/2024 10:46 AM EDT) pH, Arterial 7.35 7.31 - 7.42 LAB HEMATOLOGY METHOD 10/17/2024 10:[address] [facility] pCO2, Arterial 42 32 - 45 mmHg LAB HEMATOLOGY METHOD 10/17/2024 10:[address] [facility] pO2, Arterial 161 >80 mmHg LAB HEMATOLOGY METHOD 10/17/2024 10:[address] [facility] SO2, Measured, Arterial 100(H) 94 - 98 % LAB HEMATOLOGY METHOD 10/17/2024 10:[address] [facility] Base Excess, Arterial -2.2(L) -2.0 - 3.0 mmol/L LAB HEMATOLOGY METHOD 10/17/2024 10:[address] [facility] Bicarbonate, Calculated, Arterial 23 22 - 26 mmol/L LAB HEMATOLOGY METHOD 10/17/2024 10:[address] [facility] Hematocrit, Whole Blood 29.9(L) 40.0 - 51.0 % LAB HEMATOLOGY METHOD 10/17/2024 10:[address] [facility] Sodium, Whole Blood 138 136 - 145 mmol/L LAB HEMATOLOGY METHOD 10/17/2024 10:[address] [facility] Potassium, Whole Blood 4.0 3.6 - 4.9 mmol/L LAB HEMATOLOGY METHOD 10/17/2024 10:[address] [facility] Chloride, Whole Blood 110(H) 97 - 107 mmol/L LAB HEMATOLOGY METHOD 10/17/2024 10:[address] [facility] Glucose, Whole Blood 174(H) 74 - 99 mg/dL LAB HEMATOLOGY METHOD 10/17/2024 10:[address] [facility] Ionized Calcium, Whole Blood 5.1 4.6 - 5.1 mg/dL LAB HEMATOLOGY METHOD 10/17/2024 10:[address] [facility] Lactate, Arterial, Whole Blood 1.4 0.5 - 1.6 mmol/L LAB HEMATOLOGY METHOD 10/17/2024 10:[address] [facility] Blood Arterial blood specimen / Unknown Arterial Puncture / Unknown 10/17/2024 10:46 AM EDT 10/17/2024 10:54 AM EDT us Jenna Lopez SPONGE PRESS OPERATOR LAB BLOOD ORDERABLES Final Re sult Performing Organization Address [facility] Co de Phone Number [facility] [address] [place] [address] * POCT ACT (10/17/2024 10:37 AM EDT) ACT+ (HIGH RANGE) 206 68 - 600 Seconds 10/29/2024 7:28 AM EDT HEALTHCARE LAB Rail Technician ID Donna Mcmillan 10/29/2024 7:28 AM EDT [facility] ACT Device ID [id number] 10/29/2024 7:28 AM EDT [facility] Comment 10/29/2024 7:[address] [facility] Comment: ACT performed by staff [...] Result Performing Organization Address [facility] de Phone Number [facility] [address] LAB [address] [place] [address] * Surgical Pathology Exam (10/17/2024 10:27 AM EDT) Case Report Surgical Pathology Case: [id number] Authorizing Provider: Terrell Gautam MD Collected: 10/17/2024 1027 Ordering Location: [facility] A OPERATING ROOM Received: 10/17/2024 1325 Pathologist: Haydee Osborne MD Specimen: Other (specify site), left common femoral plaque 10/21/2024 10:[address] [facility] Final Diagnosis A. LEFT COMMON FEMORAL PLAQUE, EXCISION: - CALCIFIED PLAQUE 10/21/2024 10:[address] [facility] at 1016 EDT Clinical Information Critical limb ischemia of left lower extremity [I70.222] 10/21/2024 10:[address] [facility] Gross Description A. LEFT COMMON FEMORAL PLAQUE Received in formalin labeled l eft common femoral plaque , is one aggregate of red-gabriel hard portions of plaque measuring 3.7 x 2.5 x 0.9 cm. The specimen is serially sectioned and home office representative sections are submitted in cassette A1. Cold Time: <1m Kenia Aceves 10/21/2024 10:[address] [facility] Note: A resident was involved in the service. I attest I examined the relevant preparations for the specimens and confirmed the diagnosis or interpretation. 10/21/2024 10:[address] [facility] Tissue Topography unknown / Unknown 10/17/2024 10:27 AM EDT 10/17/2024 1:25 PM EDT Comment:Pre-op diagnosis: Critical limb ischemia of left lower extremity [I70.222] us Terrell Gautam MD LAB PATHOLOGY ORDERABLES Gwen grimaldo Result [facility] [address] [place] [address] * POCT ACT (10/17/2024 10:03 AM EDT) ACT+ (HIGH RANGE) 244 68 - 600 Seconds 10/29/2024 7:28 AM EDT [facility] Rail Technician ID Donna Mcmillan 10/29/2024 7:28 AM EDT [facility] ACT Device ID [id number] 10/29/2024 7:28 AM EDT [facility] Comment 10/29/2024 7:[address] [facility] Comment: ACT performed by staff [...] [facility] [address] LAB [address] [place] [address] * (ABNORMAL) Blood gas, arterial (10/17/2024 9:45 AM EDT) pH, Arterial 7.37 7.31 - 7.42 LAB HEMATOLOGY METHOD 10/17/2024 9:[address] [facility] pCO2, Arterial 43 32 - 45 mmHg LAB HEMATOLOGY METHOD 10/17/2024 9:[address] [facility] pO2, Arterial 177 >80 mmHg LAB HEMATOLOGY METHOD 10/17/2024 9:[address] [facility] SO2, Measured, Arterial 100(H) 94 - 98 % LAB HEMATOLOGY METHOD 10/17/2024 9:[address] [facility] Base Excess, Arterial -0.5 -2.0 - 3.0 mmol/L LAB HEMATOLOGY METHOD 10/17/2024 9:[address] [facility] Bicarbonate, Calculated, Arterial 25 22 - 26 mmol/L LAB HEMATOLOGY METHOD 10/17/2024 9:[address] [facility] Hematocrit, Whole Blood 30.0(L) 40.0 - 51.0 % LAB HEMATOLOGY METHOD 10/17/2024 9:[address] [facility] Sodium, Whole Blood 137 136 - 145 mmol/L LAB HEMATOLOGY METHOD 10/17/2024 9:[address] [facility] Potassium, Whole Blood 4.3 3.6 - 4.9 mmol/L LAB HEMATOLOGY METHOD 10/17/2024 9:[address] [facility] Chloride, Whole Blood 108(H) 97 - 107 mmol/L LAB HEMATOLOGY METHOD 10/17/2024 9:[address] [facility] Glucose, Whole Blood 191(H) 74 - 99 mg/dL LAB HEMATOLOGY METHOD 10/17/2024 9:[address] [facility] Ionized Calcium, Whole Blood 5.0 4.6 - 5.1 mg/dL LAB HEMATOLOGY METHOD 10/17/2024 9:[address] [facility] Lactate, Arterial, Whole Blood 1.3 0.5 - 1.6 mmol/L LAB HEMATOLOGY METHOD 10/17/2024 9:[address] [facility] Blood Arterial blood specimen / Unknown Arterial Line / Unknown 10/17/2024 9:45 AM EDT 10/17/2024 9:52 AM EDT us Jenna Lopez CRNA LAB BLOOD ORDERABLES Final Re sult [facility] [address] [place] [address] * (ABNORMAL) Blood gas, arterial (10/17/2024 8:47 AM EDT) pH, Arterial 7.37 7.31 - 7.42 LAB HEMATOLOGY METHOD 10/17/2024 8:[address] [facility] pCO2, Arterial 43 32 - 45 mmHg LAB HEMATOLOGY METHOD 10/17/2024 8:[address] [facility] pO2, Arterial 205 >80 mmHg LAB HEMATOLOGY METHOD 10/17/2024 8:[address] [facility] SO2, Measured, Arterial 100(H) 94 - 98 % LAB HEMATOLOGY METHOD 10/17/2024 8:[address] [facility] Base Excess, Arterial -0.3 -2.0 - 3.0 mmol/L LAB HEMATOLOGY METHOD 10/17/2024 8:[address] [facility] Bicarbonate, Calculated, Arterial 25 22 - 26 mmol/L LAB HEMATOLOGY METHOD 10/17/2024 8:[address] [facility] Hematocrit, Whole Blood 31.3(L) 40.0 - 51.0 % LAB HEMATOLOGY METHOD 10/17/2024 8:[address] [facility] Sodium, Whole Blood 138 136 - 145 mmol/L LAB HEMATOLOGY METHOD 10/17/2024 8:[address] [facility] Potassium, Whole Blood 4.0 3.6 - 4.9 mmol/L LAB HEMATOLOGY METHOD 10/17/2024 8:[address] [facility] Chloride, Whole Blood 108(H) 97 - 107 mmol/L LAB HEMATOLOGY METHOD 10/17/2024 8:[address] [facility] Glucose, Whole Blood 162(H) 74 - 99 mg/dL LAB HEMATOLOGY METHOD 10/17/2024 8:[address] [facility] Ionized Calcium, Whole Blood 5.2(H) 4.6 - 5.1 mg/dL LAB HEMATOLOGY METHOD 10/17/2024 8:[address] [facility] Lactate, Arterial, Whole Blood 1.7(H) 0.5 - 1.6 mmol/L LAB HEMATOLOGY METHOD 10/17/2024 8:[address] [facility] Blood Arterial blood specimen / Unknown Arterial Puncture / Unknown 10/17/2024 8:47 AM EDT 10/17/2024 8:58 AM EDT Jenna Lopez [facility] LAB BLOOD ORDERABLES Final Re sult [facility] [address] [place] [address] * POCT ACT (10/17/2024 8:46 AM EDT) ACT+ (HIGH RANGE) 101 68 - 600 Seconds 10/29/2024 7:28 AM EDT HEALTHCARE LAB Rail Technician ID Donna Mcmillan 10/29/2024 7:28 AM EDT HEALTHCARE LAB ACT Device ID [id number] 10/29/2024 7:28 AM EDT HEALTHCARE LAB Comment 10/29/2024 7:[address] [facility] Comment: ACT performed by staff [...] UNSOLICITED RESULTS Final Result Performing Organization Address City/[facility]/ZIP Co de Phone Number [facility] [address] LAB [address] [place] [address] * Type and Screen (10/17/2024 7:19 AM [...] ORDERAB LES Final Result Performing Organization Address City/[facility]/ZIP Co de Phone Number BLOOD BANK [address] [place] [address] * (ABNORMAL) POCT glucose meter (10/17/2024 6:44 AM EDT) [facility] POCT Glucose 178(H) 74 - [...] 10/17/2024 6:49 AM EDT [facility] Rail Technician ID Hunter Burroughs 10/18/19 6:49 AM EDT [facility] Device ID [id number] 10/17/2024 6:49 AM EDT [facility] Specimen Type POC Capillary 10/17/2024 6:49 AM EDT [facility] Blood Capillary blood specimen / Unknown 10/17/2024 6:44 AM EDT 10/17/2024 6:49 AM EDT us Terrell Gautam MD LAB POINT OF CARE TE ST DOCKED DEVICE UNSOLICITED RESULTS Final Result [facility] [address] [place] [address] documented in this encounter Visit Diagnoses Diagnosis [...] Alonso RN) [id number] (Given - Provider: Keyla hCow) docusate sodium (Colace) capsule 100 mg 100 [...] documented as of this encounter Care Teams Control Systems Technician Relationship Specialty Start Date End Date Asad Victor MD [address] [place] [id number] PCP - General 10/07/22 documented as of this encounter
--- OUTSIDE RECORDS SUMMARY | 2024-11-05 21:45 | XMS_ITS | Encounter Summary ---
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 11/07/24 1137 HEMOGLOBIN g/dL 9.2* 9.2* 8.5* HEMATOCRIT % 28.3* 28.9* 26.0* INR Cr Results from last 7 days Lab Units 11/09/245 11/08/24 0439 11/07/24 1137 CREATININE mg/dL 0.67* [...] 09/21/24, CLI s/p left femoral endarterectomy with EIA/PRESCHOOL AIDE stenting 10/17/24, who [facility] [...] Level of Care Edwin Donal M4 student [facility] Cosigned by Nathaly Nowak MD at 11/11/2024 [...] PT session. Patient reports he went to [facility] 12th floor via w/c yesterday [...] Mobility: Ambulatory- community (was utilizing scooter at [facility] since discharge) Mobility [place]: Independent gait with device History of Falls: [...] Mobility Bed Mobility Exam: Scooting/Bridging Level of [place]: Modified independence Bed Mobility Exam: Supine to Sit Level of [place]: Modified [place] Transfers Transfer Exam: Sit to stand Level of [place]: Modified independence Assistive Device: Rollator Transfer Exam: Stand to Sit Level of [place]: Modified independence Assistive Device: Rollator Ambulation Device: [...] maintain/improve functional mobility and endurance. Standardized Assessments [facility] 6-Clicks Mobility Assessment Difficulty patient has turning [...] 3-5 steps with a railing?: A little [facility] 6-Clicks Mobility Assessment Total : 22 Assessment [...] Mobility Ambulatory- community (was utilizing scooter at [facility] since discharge) Mobility [place] Independent gait with device History of Falls [...] distal to knee) BED MOBILITY Level of Milton Physical/Non-physical Assist Adaptive Equipment Utilized Scooting/ Bridging Modified independence Supine to Sit Modified [place] TRANSFERS Level of [place] Physical/Non-physical Assist Adaptive Equipment Utilized Sit to Stand Modified independence Rollator Stand to sit Modified independence Rollator Toilet Transfer Modified independence Grab bar FUNCTIONAL MOBILITY Ambulation Modified independent 200ft x2 with seated rest break between bouts; RPE 5-7/10. Cues forsafety with rollator brakes. Rollator Comments BALANCE Postural Appearance Posture: Within Functional Limits Level of [place] Balance Support Static Sit Independent Feet supported Dynamic Sit Independent Feet supported Static Stand Independent Right upper extremity support, Left upper extremity support (via rollator) Dynamic Stand Independent Right upper extremity support, Left upper extremity support (via rollator) STANDARDIZED ASSESSMENTS [facility] 6-Click Daily Activities Help from Other: Don/Doff Regular Lower Body Clothings: None Help From Other: Bathing: None Help From Other: Toileting: None Help From Other: Don/Doff Upper Body Clothings: None Help From Other: Grooming: None Help From Other: Eating Meals: None [facility] 6 Click - Daily Activities Score: [...] needed areas of treatment space. Level of [place] Interventions Grooming Modified independent Standing sinkside Pt [...] completed Intervention: Prevent Skin Injury Flowsheets (Taken 11/09/2024100) Body Position: weight shifting Skin Protection: protective [...] Progressing Intervention: Optimize Glycemic Control Flowsheets (Taken 11/09/2024 010) Hyperglycemia Management: blood glucose monitored Goal: Minimize Hypoglycemia Risk Outcome: Ongoing, Progressing Intervention: Minimize and Manage Hypoglycemia Flowsheets (Taken 11/09/2024 010) Hypoglycemia Management: blood glucose monitored * Care Plan - Brigitte Castellon RN - 11/08/2024 1:50 PM EDT Problem: Adult Inpatient Plan of Care Goal: Plan of Care Review 11/08/20241348 by Brigitte Castellon RN Outcome: Ongoing, Progressing 11/08/20241345 by Brigitte Castellon RN Flowsheets (Taken 11/08/20241345) Progress: improving Plan of Care Reviewed With: [...] Intervention: Prevent or Manage Infection Flowsheets (Taken 11/08/20241345) Infection Management: aseptic technique maintained Problem: Comorbidity Management Goal: Maintenance of Asthma Control Outcome: Ongoing, Progressing Intervention: Maintain Asthma Symptom Control Flowsheets (Taken 11/08/2024 1346) Medication Review/Management: medications reviewed dosing adjusted Goal: Maintenance of Behavioral Health Symptom Control Outcome: Ongoing, Progressing Intervention: Maintain Behavioral Health Symptom Control Flowsheets (Taken 11/08/2024 1346) Medication [...] Manage Postbariatric Surgery Care Flowsheets (Taken 11/08/2024 1346) Medication Review/Management: medications reviewed dosing adjusted Goal: Maintenance of Seizure Control Outcome: Ongoing, Progressing Problem: Fall Injury Risk Goal: Absence of Fall and Fall-Related Injury Outcome: Ongoing, Progressing Intervention: Identify and Manage Contributors Flowsheets (Taken 11/08/2024 1346) Medication Review/Management: medications reviewed dosing adjusted Self-Care [...] Note Bev Borja 64 y.o. male CSN: [id number] Admission: 11/05/2024 9:45 PM Primary Problem: Wound infection SW went to bedside to discuss placement options for modified OPAT. Per patient, ID stated he would be able to dc home with a PICC and home antibiotics. SW relayed message to team. Wound vac order sent to [facility] at for potential Monday discharge if patient does go home. SW will continue to follow and assist as needed. Mariia Macedo ASBESTOS WIRE FINISHER * Progress Notes - Bianca Knight, PharmD - 11/08/2024 11:15 AM EDT Pharmacokinetic [...] will continue to follow, Submitted by: Bianca Knight PharmTobias, [place]. [facility] 11/08/2024 11:15 AM * Progress Notes - Melecio Echevarria DO - 11/08/2024 7:18 AM EDT Images from the original note were not included. [facility] Department of Surgery Division of Vascular Surgery Surgery Progress Note 11/08/24 Bev Borja Subjective Subjective: HPI 64yoM PMHx COPD, T2DM, HLD, HTN, RLS, CAD s/p PCI (on Xarelto) s/p pacemaker c/b left SANDIP pseudoaneurysm s/p thrombin injection 09/21/24, CLI s/p left femoral endarterectomy with EIA/PRESCHOOL AIDE stenting 10/17/24, who [facility] [...] MD Home meds Hold blood thinners Diabetes ([facility]/HCC) Overview Addendum 10/19/2021 10:41 AM by Giovanna [...] completed 10/19 Pseudoaneurysm of left femoral artery ([facility]) COPD (chronic obstructive pulmonary disease) ([facility]) Overview Signed 10/18/2021 7:30 PM by Gallo Gallardo MD Not on home inhalers A-fib ([facility]) Overview Addendum 10/19/2021 10:39 AM by Giovanna Junior APRN Hold anticoagulation Metoprolol restarted BPH (benign prostatic hyperplasia) Overview Addendum 10/19/2021 10:41 AM by Giovanna Junior APRN Flomax restarted Subarachnoid hemorrhage ([facility]/HCC) Overview Addendum 10/20/2021 8:23 AM by Hilt, Giovanna E, PELLETIZER Left frontal, right occipital NSGY consulted - Repeat CTH showing slight worsening of tSAH - no need for further imaging, will continue to follow clinically 10/20: spoke with NSGY via phone and stated to hold ASA and Xarelto for 2 weeks Closed compression fracture of L3 lumbar vertebra, initial encounter ([facility]) Overview Signed 10/18/2021 7:35 PM [...] 09/21/24, CLI s/p left femoral endarterectomy with EIA/PRESCHOOL AIDE stenting 10/17/24, who presented [facility] [...] the findings. Cardiac Device Check - PRE-OR [facility] EP-Device Clinic: Pre-operative CIED Report Assessment and Sara-Procedural Reommendations: Name: Bev Borja Date: 10/17/2024 : 1960 Age: 64 y.o. Patient has a Senior Credit Analyst: Berger DUCT LAYER-PM Remaining battery longevity adequate. Lead integrity test [...] Component Value Units Date/Time Fungal Culture, Routine [[id number]] Collected: 11/06/241127 Order Status: Completed Specimen: Swab from Other (specify site) Updated: 11/08/24 0919 Culture No Fungal Growth <1 Week Fungal Culture, Routine [[id number]] Collected: 11/06/241128 Order Status: Completed Specimen: Swab from Other (specify site) Updated: 11/08/24 0919 Culture No Fungal Growth <1 Week Fungal Culture, Tissue and ISIDRO [[id number]] Collected: 11/06/24 113 Order Status: Completed Specimen: Tissue from Other (specify site) Updated: 11/08/24 0912 Culture Reading Mycological 4 Weeks No Fungal Growth <1 Week ISIDRO No fungal elements seen Blood Culture (Aerobic/Anaerobet Set) [[id number]] Collected: 11/06/24106 Order Status: Completed Specimen: Blood from AC, Left Updated: 11/08/24 0302 Culture No growth at day 2 Blood Culture (Aerobic/Anaerobet Set) [[id number]] Collected: 11/06/24106 Order Status: Completed Specimen: Blood from Hand, Right Updated: 11/08/24 0302 Culture No growth at day 2 Tissue Culture and Gram Stain [[id number]] (Abnormal) Collected: 11/06/24 1134 Order Status: Completed [...] in pairs Routine Culture and Gram Stain [[id number]] (Abnormal) Collected: 11/06/241128 Order Status: Completed Specimen: Swab from Other (specify site) Updated: 11/07/24 1426 Culture Moderate Growth Enterobacter cloacae complex Comment: This isolate has been identified using the FDA Approved Tapulouser CA System The organism value for this result has been updated. These results have been appended to the previously preliminary verified report. Gram Stain Result No polymorphonuclear leukocytes seen No organisms seen AFB Culture, Non Respiratory Source and Acid Fast Stain [[id number]] Collected: 11/06/24 113 Order Status: Completed Specimen: Tissue from Other (specify site) Updated: 11/07/24 1404 Acid Fast Stain No acid fast bacilli seen Routine Culture and Gram Stain [[id number]] Collected: 11/06/241127 Order Status: Completed Specimen: Swab from Other (specify site) Updated: 11/07/24 0855 Culture No growth at day 1 Gram Stain Result No organisms seen No polymorphonuclear leukocytes seen Anaerobic Culture [[id number]] Collected: 11/06/241127 Order Status: Sent Specimen: Swab from Other (specify site) Updated: 11/06/24 1220 Abscess Culture and Gram Stain [[id number]] Collected: 11/06/241127 Order Status: Canceled Specimen: Swab from Other (specify site) Updated: 11/06/24 1220 Anaerobic Culture [[id number]] Collected: 11/06/241128 Order Status: Sent Specimen: Swab from Other (specify site) Updated: 11/06/24 1219 Abscess Culture and Gram Stain [[id number]] Collected: 11/06/241128 Order Status: Canceled Specimen: Swab from Other (specify site) Updated: 11/06/24 121 Anaerobic Culture [[id number]] Collected: 11/06/241133 Order Status: Sent Specimen: Tissue [...] 11/06, pt went to the [facility] vascular surgery for left groin [...] the time spent on the encounter was [id number] providing direct patient care, counseling for the patient/caregiver, and care coordination. [1] Current Facility-Administered Medications Medication Dose Route Frequency Provider Last Rate Last Admin acetaminophen (Tylenol) tablet 1,000 mg 1,000 mg Oral q6h [facility] Anthoyn Reyes MD 1,000 mg at 11/08/24 0520 aspirin chewable tablet 81 mg 81 mg Oral Daily Reid Daniels MD 81 mg at 11/08/24 0837 cefepime (Maxipime) 2 g in sodium chloride 0.9% 100 mL IVPB (vial adapter required) 2 g [id number] Reid Daniels MD 36.7 mL/hr at 11/08/24 [...] Subcutaneous Nightly Reid Daniels MD 28Units at 11/07/242046 insulin lispro (Admelog) 100 units/mL injection - [...] daily Anthony Reyes MD 500 mg at 11/08/24836 metoprolol tartrate (Lopressor) tablet 100 mg 100 mg Oral BID Anthony Reyes MD 100 mg at 11/08/24 0837 metroNIDAZOLE (Flagyl) tablet 500 mg 500 mg Oral TID Reid Daniels MD 500 mg at 11/08/24 0837 ondansetron ODT (Zofran-ODT) disintegrating tablet 4 mg 4 mg Oral q6h PRN Anthony Reyes MD Or ondansetron (Zofran) injection 4 mg 4 mg Intravenous q6h PRN Anthony Reyes MD Or ondansetron (Zofran) 4 MG/5ML solution 4 mg 4 mg Oral q6h PRN Anthony Reyes MD oxyCODONE (Roxicodone) immediate release tablet 5 mg 5 mg Oral q6h PRN Anthony Reyes MD 5 mg at 11/07/24 1038 Or oxyCODONE (Roxicodone) immediate release tablet 10 [...] BID Anthony Reyes MD 2 mg at 11/08/24 0837 sodium chloride 0.9 % flush 10 mL 10 mL Intravenous q12h Anthony Reyes MD 10 mL at 11/07/24 2349 And sodium chloride 0.9 % flush 10 mL 10 mL Intravenous PRN Anthony Reyes MD sodium chloride 0.9 % flush 10 mL 10 mL Intravenous q12h Jerry Holcomb MD 10 mL at 11/08/24 0837 And sodium chloride 0.9 % flush 10 [...] IV Access: pending Patient Specific Outpatient Circumstances: [address] [place] [id number] Contact information Bev Borja [phone] (home) Extended Emergency Contact Information Primary Emergency Contact: Patti Hill Relation: Sister Coroner'S Juror needed? No Outpatient services (including home infusion, [...] via secure chat or staff messaging in mTraks. OPAT Modified program for IV antimicrobial therapy [...] of state or to follow with a non- provider, reach out to the OPAT team [...] Pain Flowsheets (Taken 11/07/2024 1038 by Joy Iraheta RN) Pain Management Interventions: medication (see MAR) [...] Note Bev Borja 64 y.o. male CSN: [id number] Admission: 11/05/2024 9:45 PM Primary Problem: Wound infection Child Welfare Specialist reviewed chart and spoke with patient to complete this Initial Case Management Assessment. PCP: Asad Victor MD (Inactive) Dr. Palomo in [facility] Emergency Contact: Extended Emergency Contact Information Primary Emergency Contact: Patti Hill Relation: Sister Coroner'S Juror needed? No Insurance: Primary Visit Coverage Payer Plan Sponsor Code Group Number Group Name [facility] MEDICARE C MEDICARE REPLACEMENT [id number] Primary Visit Coverage Subscriber Subscriber ID Subscriber Name Subscriber SSN Subscriber Address [id number] BEV BORJA [id number] [place] [address] Secondary Visit Coverage Payer Plan Sponsor Code Group Number Group Name [facility] Secondary Visit Coverage Subscriber Subscriber ID Subscriber Name Subscriber SSN Subscriber Address [id number] BEV BORJA [id number] [place] [address] Patient information: Primary Caregiver: Self Support System: Immediate family Daily Living Activities: Functional Status: Independent Living Arrangements: Alone Type of Residence: Private residence, Single Level [address] [place] [address] Current DME: Equipment Currently Used at Home: walker, rollator Income Information: Income Source: Disabled Income/Expense Information: Income meets expenses Current Resources Utilized: Food [employer]om Housing Circumstances-Z Codes: Housing Circumstances (select all [...] Dialysis Services: None Living Will/Advance Directive/Power of Hot Baller /Guardian: Have you reviewed your Advance Directive and is it valid for this stay?: No Advance Directive: Not applicable Information Provided on Healthcare Directives: No Pre-existing DNR/DNI Order: No Patient Requests Assistance: No Additional Comments: Patient is not medically ready for discharge. Patient uses [employer] for transportation and will need assistance with discharge transport. SW will continue to follow. Mariia Macedo ASBESTOS WIRE FINISHER * Progress Notes - Melecio Echevarria DO - 11/07/2024 9:24 AM EDT Images from the original note were not included. [facility] Department of Surgery Division of Vascular Surgery Surgery Progress Note 11/07/24 Bev Borja Subjective Subjective: HPI 64yoM PMHx COPD, T2DM, HLD, HTN, RLS, CAD s/p PCI (on Xarelto) s/p pacemaker c/b left SANDIP pseudoaneurysm s/p thrombin injection 09/21/24, CLI s/p left femoral endarterectomy with EIA/PRESCHOOL AIDE stenting 10/17/24, [facility] [...] - 11/06/24 0659 11/06/24 07 - 11/06/24 18511/06/24 1900 - 11/07/24 0659 11/07/24 07 - 11/07/24 0925 Patient has no LDAs of requested type [...] MD Home meds Hold blood thinners Diabetes ([facility]) Overview Addendum 10/19/2021 10:41 AM [...] completed 10/19 Pseudoaneurysm of left femoral artery ([facility]) COPD (chronic obstructive pulmonary disease) ([facility]) Overview Signed 10/18/2021 7:30 PM by Gallo Gallardo MD Not on home inhalers A-fib ([facility]) Overview Addendum 10/19/2021 10:39 AM by Giovanna Junior APRN Hold anticoagulation Metoprolol restarted BPH (benign prostatic hyperplasia) Overview Addendum 10/19/2021 10:41 AM by Giovanna Junior APRN Flomax restarted Subarachnoid hemorrhage ([facility]) Overview Addendum 10/20/2021 8:23 AM by Giovanna Junior APRN Left frontal, right occipital NSGY consulted - Repeat CTH showing slight worsening of tSAH - no need for further imaging, will continue to follow clinically 10/20: spoke with NSGY via phone and stated to hold ASA and Xarelto for 2 weeks Closed compression fracture of L3 lumbar vertebra, initial encounter ([facility]) Overview Signed 10/18/2021 7:35 PM [...] 09/21/24, CLI s/p left femoral endarterectomy with EIA/PRESCHOOL AIDE stenting 10/17/24, who [facility] [...] Progressing Flowsheets (Taken 11/06/2024 1502 by Brigitte Castellon, RN) Progress: improving Plan of Care Reviewed With: patient Goal: Patient-Specific Goal (Individualized) Outcome: Ongoing, Progressing Flowsheets (Taken 11/06/2024 1400 by Brigitte Castellon, RN) Patient/Family-Specific Goals (Include Timeframe): Patient will [...] VTE (Venous Thromboembolism) Risk Flowsheets (Taken 11/06/2024 1943) VTE Prevention/Management: SCDs (sequential compression devices) on Intervention: Prevent Infection Flowsheets (Taken 11/06/2024 1502 by Brigitte Castellon RN) Infection Prevention: environmental surveillance performed hand hygiene [...] Progressing * Significant Event - Melecio Echevarria Elaine, DO - 11/06/2024 7:23 PM EDT Images from the original note were not included. [facility] Department of Surgery Division of [...] Diet: Regular Anticoagulation/DVT ppx: Held Pain management: [facility] Level of care: Continue Current Level of Care I have answered and addressed all issues and concerns from the patient and nursing staff. I have notified senior resident/attending prosthodontist/owner with any issues or concerns. Melecio Echevarria [...] Agree with above assessment and evaluation from resident/[employer]. * Consults - Oscar Appiah MD - [...] the findings. Cardiac Device Check - PRE-OR [facility] EP-Device Clinic: Pre-operative CIED Report Assessment and Sara-Procedural Reommendations: Name: Bev Borja Date: 10/17/2024 : 1960 Age: 64 y.o. Patient has a Senior Credit Analyst: Berger DUCT LAYER-PM Remaining battery longevity adequate. Lead integrity test [...] Procedure Component Value Units Date/Time Anaerobic Culture [[id number]] Collected: 11/06/241127 Order Status: Sent Specimen: Swab from Other (specify site) Updated: 11/06/241219 Fungal Culture, Routine [[id number]] Collected: 11/06/241127 Order Status: Sent Specimen: Swab from Other (specify site) Updated: 11/06/241219 Routine Culture and Gram Stain [[id number]] Collected: 11/06/241127 Order Status: Sent Specimen: Swab from Other (specify site) Updated: 11/06/241219 Abscess Culture and Gram Stain [[id number]] Collected: 11/06/241127 Order Status: Canceled Specimen: Swab from Other (specify site) Updated: 11/06/241219 Anaerobic Culture [[id number]] Collected: 11/06/241128 Order Status: Sent Specimen: Swab from Other (specify site) Updated: 11/06/241218 Fungal Culture, Routine [[id number]] Collected: 11/06/241128 Order Status: Sent Specimen: Swab from Other (specify site) Updated: 11/06/241218 Routine Culture and Gram Stain [[id number]] Collected: 11/06/241128 Order Status: Sent Specimen: Swab from Other (specify site) Updated: 11/06/241218 Abscess Culture and Gram Stain [[id number]] Collected: 11/06/241128 Order Status: Canceled Specimen: Swab from Other (specify site) Updated: 11/06/241218 Anaerobic Culture [[id number]] Collected: 11/06/241133 Order Status: Sent Specimen: Tissue from Other (specify site) Updated: 11/06/241217 Tissue Culture and Gram Stain [[id number]] Collected: 11/06/241133 Order Status: Sent Specimen: Tissue from Other (specify site) Updated: 11/06/241217 AFB Culture, Non Respiratory Source and Acid Fast Stain [[id number]] Collected: 11/06/241133 Order Status: Sent Specimen: Tissue from Other (specify site) Updated: 11/06/241217 Fungal Culture, Tissue and ISIDRO [[id number]] Collected: 11/06/241133 Order Status: Sent Specimen: Tissue from Other (specify site) Updated: 11/06/241217 Blood Culture (Aerobic/Anaerobet Set) [[id number]] Collected: 11/06/24106 Order Status: Completed Specimen: Blood from AC, Left Updated: 11/06/24402 Culture Culture in lab Blood Culture (Aerobic/Anaerobet Set) [[id number]] Collected: 11/06/24106 Order Status: Completed Specimen: Blood [...] [facility]. [facility] and [...] the time spent on the encounter was [id number] providing direct patient care, counseling for the patient/caregiver, and care coordination. [1] Past Medical History: Diagnosis Date Arthritis Old myocardial infarction History of myocardial infarction [2] Past Surgical History: Procedure Laterality Date ANKLE SURGERY Right CARDIAC PACEMAKER PLACEMENT CAROTID ENDARTERECTOMY N/A 2017 Endarterectomy Carotid Artery from [facility] CORONARY ANGIOPLASTY Left Coronary Angiography With Concomitant Left Heart Catheterization from [facility] CORONARY ARTERY BYPASS GRAFT N/A 2018 3V ELBOW SURGERY Right ENDARTERECTOMY Left 10/17/2024 common/SFA/Profunda thromboendarterectomy, EIA/PRESCHOOL AIDE stent HERNIA REPAIR KNEE ARTHROSCOPY Left VASCULAR SURGERY Left 09/21/2024 PRESCHOOL AIDE pseudoaneurym injection [3] Family History Problem Relation [...] mg 1,000 mg Oral q6h [facility] Anthony Reyes MD 1,000 mg at 11/06/24 [...] Reyes MD 40 mg at 11/06/24 0138 [Transfer Hold] rOPINIRole (Requip) tablet 2 mg [...] Note Bev Borja 64 y.o. male CSN: [id number] Admission: 11/05/2024 9:45 PM Primary Problem: Wound infection Patient in OR today. SW will continue to follow. Mariia Macedo ASBESTOS WIRE FINISHER * Op Note - Jerry Holcomb MD - 11/06/2024 11:23 AM EDT Operative Note Date: 11/06/24 Location: [facility] OR Name: Bev Borja, : 1960, Diagnoses: Pre-op Diagnosis Surgical wound infection Post-op Diagnosis Surgical wound infection Procedure(s): Excisional debridement left groin (skin, subcutaneous tissue. Final measurements 10 x 7 x 6.5 cm) Excisional debridement left thigh (skin, subcutaneous tissue. Final measurements 8 x 2 x 3 cm) Attending Surgeon(s): * Nathaly Nowak - Primary System Administration Manager(s): * Luna Beckett MD - Resident [...] from the original note were not included. [facility] Department of Surgery Division of [...] to the [facility] on 11/[facility]2024 with problems with his wounds. [...] Take 1 tablet by mouth nightly. 03/28/19 ProviderDarby MD rivaroxaban (Xarelto) 20 MG tablet Take 1 tablet by mouth 1 time each day with dinner. Take with food. 10/19/24 11/18/24 Dandy Baltazar MD rOPINIRole (Requip) 1 MG tablet Take 2 tablets by mouth 2 times a day. 10/19/24 Dandy Baltazar MD tamsulosin (Flomax) 0.4 MG 24 hr capsule Take 1 capsule by mouth every evening. 09/30/22 ProviderDarby MD Anti-Thrombotic Medications: Is this patient taking [...] ENDARTERECTOMY N/A 2016 Endarterectomy Carotid Artery from [facility] CORONARY ANGIOPLASTY Left Coronary Angiography With Concomitant Left Heart Catheterization from [facility] CORONARY ARTERY BYPASS GRAFT N/A 2018 3V ELBOW SURGERY Right ENDARTERECTOMY Left 10/17/2024 common/SFA/Profunda thromboendarterectomy, EIA/PRESCHOOL AIDE stent HERNIA REPAIR KNEE ARTHROSCOPY Left VASCULAR SURGERY Left 09/21/2024 PRESCHOOL AIDE pseudoaneurym injection [4] Family History Problem Relation [...] Correction - Standard Dose 0-5 UnitsSubcutaneous q6h Anthony Gill MD 2 Units at 11/06/24 0140 lactated [...] 10 mg 10 mg Oral q6h PRN Anhtony Reyes MD piperacillin-tazobactam (Zosyn) 4.5 g in [...] baseline. Psychiatric: Mood and Affect: Mood normal. Mckinney Coma Scale Score: 15 ED Course & [...] in And Linked Group Acknowledged ANTHONY REYES 08/13/25 0036 Saline lock IV Once Placed in And Linked Group Acknowledged ANTHONY REYES 11/06/24 0036 Admit to inpatient Once Acknowledged ANTHONY REYES 11/05/24 8808 Consult to Vascular Surgery - Surg Red Once Specialty: Vascular Surgery Provider: (Not yet assigned) Completed CIRO ALEXANDER ED Course as of 11/06/24 06MonNov 05, 2024 2311 On initial evaluation, patient is hemodynamically stable. Patient has history of traumatic left lower extremity PRESCHOOL AIDE pseudoaneurysm s/p repair on 10/17 with Vascular [...] None Disposition Admit Admitting/Attending Physician: NATHALY NOWAK [[id number]] Provider Care Team: [facility]GR VASCULAR SURGERY 2 [168] Are they the primary team?: Yes [1] - [1] Past Medical History: Diagnosis Date Arthritis Old myocardial infarction History of myocardial infarction [2] Past Surgical History: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 stick. If peripheral stick is not feasible, please ensure that line is flushed well prior to drawing level.... (11/08/2024 9:24 AM EDT) [facility] Vancomycin, Peak, Plasma 29.1 20.0 - [...] Performing Organization Address [facility] Phone Number [facility] [address] [place] [address] * (ABNORMAL) POCT glucose meter (11/08/2024 8:00 AM EDT) Pathologist [facility] POCT Glucose 150(H) 74 - 99 mg/dL 11/08/2024 8:01 AM EDT [facility] Comment:Accuracy of a glucos e result [...] for testing. Comment 11/08/2024 8:01 AM EDT [facility] Data Capture Clerk ID Estefani Sheth 11/08/2024 8:01 AM EDT HEALTHCARE LAB Device ID [id number] 11/08/2024 8:01 AM EDT [facility]ALTHCARE LAB Specimen Type POC Capillary 11/08/2024 8:01 AM EDT [facility] Blood Capillary blood specimen / Unknown 11/08/2024 8:00 AM EDT 11/08/2024 8:01 AM EDT us Nathaly Nowak MD LAB POINT OF CARE TE ST DOCKED DEVICE UNSOLICITED RESULTS Final Result [facility] [address] [place] [address] * (ABNORMAL) CBC and Differential (11/08/2024 4:39 [...] Resu lt [facility] [address] [place] [address] * (ABNORMAL) Comprehensive Metabolic Panel, Plasma (11/08/2024 [...] Resu lt [facility] [address] [place] [address] * Vancomycin, Trough, Plasma Please draw ~30 [...] ORDERABLES Final Resu lt Performing Organization Address City/[facility]/ZIP Co de Phone Number [facility] [address] [place] [address] * (ABNORMAL) POCT glucose meter (11/07/2024 7:26 [...] for testing. Comment 11/07/2024 7:28 PM EDT [facility] Data Capture Clerk ID Maximiliano Hansen II 11/07/2024 7:28 PM EDT [facility] Device ID [id number] 11/07/2024 7:28 PM EDT [facility] Specimen Type POC Capillary 11/07/2024 7:28 PM EDT [facility] Blood Capillary blood specimen / Unknown 11/07/2024 7:26 PM EDT 11/07/2024 7:28 PM EDT us Nathaly Nowak MD LAB POINT OF CARE TE ST DOCKED DEVICE UNSOLICITED RESULTS Final Result Performing Organization Address [facility] Co de Phone Number [facility]ARE [facility] [address] [place] [address] * (ABNORMAL) POCT glucose meter (11/07/2024 5:51 [...] Comment 11/07/2024 5:52 PM EDT [facility]ALTHCARE LAB Data Capture Clerk ID Brigitte Castellon 11/07/2024 5:52 PM EDT [facility] Device ID [id number] 11/07/2024 5:52 PM EDT [facility] Specimen Type POC Capillary 11/07/2024 5:52 PM EDT [facility] Blood Capillary blood specimen / Unknown 11/07/2024 5:51 PM EDT 11/07/2024 5:52 PM EDT Nathaly Nowak MD LAB POINT OF CARE TE ST DOCKED DEVICE UNSOLICITED RESULTS Final Result Performing Organization Address City/[facility] Co de Phone Number [facility] [address] [place] [address] * (ABNORMAL) POCT glucose meter (11/07/2024 4:47 PM EDT) POCT Glucose 162(H) 74 - 99 mg/dL 11/07/2024 4:48 PM EDT [facility]ALTH[facility] Comment:Accuracy of a [...] Comment 11/07/2024 4:48 PM EDT [facility]ALTH[facility]ARE LAB Data Capture Clerk ID Estefani Sheth 11/07/2024 4:48 PM EDT HEALTH[facility]ARE LAB Device ID [id number] 11/07/2024 4:48 PM EDT [facility] Specimen Type POC Capillary 11/07/2024 4:48 PM EDT [facility] Blood Capillary blood specimen / Unknown 11/07/2024 4:47 PM EDT 11/07/2024 4:48 PM EDT Nathaly Nowak MD LAB POINT OF CARE TE ST DOCKED DEVICE UNSOLICITED RESULTS Final Result Performing Organization Address City/[facility]/ZIP Co de Phone Number [facility] [address] [place] [address] * (ABNORMAL) POCT glucose meter (11/07/2024 12:22 [...] Comment 11/07/2024 12:24 PM EDT HEALTHCARE LAB Data Capture Clerk ID Estefani Sheth 11/07/2024 12:24 PM EDT HEALTHCARE LAB Device ID [id number] 11/07/2024 12:24 PM EDT [facility]ALTH[facility]ARE LAB Specimen Type POC Capillary 11/07/2024 12:24 PM EDT [facility] LAB Blood Capillary blood specimen / Unknown 11/07/2024 12:22 PM EDT 11/07/2024 12:24 PM EDT us Nathaly Nowak MD LAB POINT OF CARE TE ST DOCKED DEVICE UNSOLICITED RESULTS Final Result Performing Organization Address City/State/[facility] Co de Phone Number [facility]ALTHCARE LAB [address] [place] [address] * (ABNORMAL) CBC and Differential (11/07/2024 11:37 AM EDT) [facility] WBC Count 9.96 3.70 - 10.30 [...] Resu lt [facility] [address] [place] [address] * (ABNORMAL) Comprehensive Metabolic Panel, Plasma (11/07/2024 [...] Resu lt [facility] [address] [place] [address] * Type and Screen (11/07/2024 11:37 AM [...] Performing Organization Address [facility] Co de Phone Number BLOOD BANK [address] * (ABNORMAL) POCT glucose meter (11/07/2024 [...] for testing. Comment 11/07/2024 10:36 AM EDT [facility] Data Capture Clerk ID Joy Irhaeta 11/07/2024 10:36 AM EDT [facility] Device ID [id number] 11/07/2024 10:36 AM EDT [facility] Specimen Type POC Capillary 11/07/2024 10:36 AM EDT [facility] Blood Capillary blood specimen / Unknown 11/07/2024 10:34 AM EDT 11/07/2024 10:36 AM EDT Nathaly Nowak MD LAB POINT OF CARE TE ST DOCKED DEVICE UNSOLICITED RESULTS Final Result Performing Organization Address City/[facility]/ZIP Co de Phone Number [facility] [address] [place] [address] * (ABNORMAL) POCT glucose meter (11/07/2024 9:34 [...] Comment 11/07/2024 9:36 AM EDT HEALTHCARE LAB Data Capture Clerk ID Brigitte Castellon 11/07/2024 9:36 AM EDT HEALTHCARE LAB Device ID [id number] 11/07/2024 9:36 AM EDT [facility]ALTH[facility]ARE LAB Specimen Type POC Capillary 11/07/2024 9:36 AM EDT [facility] Blood Capillary blood specimen / Unknown 11/07/2024 9:34 AM EDT 11/07/2024 9:36 AM EDT Nathaly Nowak MD LAB POINT OF CARE TE ST DOCKED DEVICE UNSOLICITED RESULTS Final Result Performing Organization Address City/State/[facility] Co de Phone Number [facility]CARE LAB [address] [place] [address] * (ABNORMAL) POCT glucose meter (11/07/2024 8:20 AM EDT) [facility] POCT Glucose 137(H) 74 - 99 mg/dL [...] Comment 11/07/2024 8:22 AM EDT [facility]ALTHCARE LAB Data Capture Clerk ID Estefani Sheth 11/07/2024 8:22 AM EDT HEALTHCARE LAB Device ID [id number] 11/07/2024 8:22 AM EDT [facility]ARE LAB Specimen Type POC Capillary 11/07/2024 8:22 AM EDT [facility] Blood Capillary blood specimen / Unknown 11/07/2024 8:20 AM EDT 11/07/2024 8:22 AM EDT Nathaly Nowak MD LAB POINT OF CARE TE ST DOCKED DEVICE UNSOLICITED RESULTS Final Result Performing Organization Address City/[facility] Co de Phone Number [facility] [address] [place] [address] * (ABNORMAL) POCT glucose meter (11/07/2024 7:21 [...] for testing. Comment 11/07/2024 7:22 AM EDT [facility] Data Capture Clerk ID Brigitte Castellon 11/07/2024 7:22 AM EDT [facility] Device ID [id number] 11/07/2024 7:22 AM EDT [facility] Specimen Type POC Capillary 11/07/2024 7:22 AM EDT [facility] Blood Capillary blood specimen / Unknown 11/07/2024 7:21 AM EDT 11/07/2024 7:22 AM EDT us Nathaly Nowak MD LAB POINT OF CARE TE ST DOCKED DEVICE UNSOLICITED RESULTS Final Result Performing Organization Address City/[facility] Co de Phone Number [facility] [address] [place] [address] * (ABNORMAL) POCT glucose meter (11/07/2024 6:25 [...] Comment 11/07/2024 6:27 AM EDT HEALTHCARE LAB Data Capture Clerk ID Nelda Gerber 11/08/19 6:27 AM EDT HEALTHCARE LAB Device ID [id number] 11/07/2024 6:27 AM EDT [facility]ALTH[facility]ARE LAB Specimen Type POC Capillary 11/07/2024 6:27 AM EDT [facility] Blood Capillary blood specimen / Unknown 11/07/2024 6:25 AM EDT 11/07/2024 6:27 AM EDT Nathaly Nowak MD LAB POINT OF CARE TE ST DOCKED DEVICE UNSOLICITED RESULTS Final Result Performing Organization Address [facility] Co de Phone Number [facility] [address] [place] [address] * (ABNORMAL) POCT glucose meter (11/07/2024 5:03 [...] Comment 11/07/2024 5:08 AM EDT [facility]ALTH[facility]ARE LAB Data Capture Clerk ID Nelda Gerber 11/08/19 5:08 AM EDT HEALTHCARE LAB Device ID [id number] 11/07/2024 5:08 AM EDT [facility]ARE LAB Specimen Type POC Capillary 11/07/2024 5:08 AM EDT [facility] Blood Capillary blood specimen / Unknown 11/07/2024 5:03 AM EDT 11/07/2024 5:08 AM EDT Nathaly Nowak MD LAB POINT OF CARE TE ST DOCKED DEVICE UNSOLICITED RESULTS Final Result Performing Organization Address City/[facility]/ZIP Co de Phone Number [facility] [address] [place] [address] * (ABNORMAL) POCT glucose meter (11/07/2024 4:16 [...] Comment 11/07/2024 4:18 AM EDT HEALTHCARE LAB Data Capture Clerk ID Nelda Gerber 11/08/19 4:18 AM EDT [facility] Device ID [id number] 11/07/2024 4:18 AM EDT [facility] Specimen Type POC Capillary 11/07/2024 4:18 AM EDT [facility] Blood Capillary blood specimen / Unknown 11/07/2024 4:16 AM EDT 11/07/2024 4:18 AM EDT us Nathaly Nowak MD LAB POINT OF CARE TE ST DOCKED DEVICE UNSOLICITED RESULTS Final Result Performing Organization Address City/State/[facility] Co de Phone Number HEALTHCARE LAB [address] [place] [address] * (ABNORMAL) POCT glucose meter (11/07/2024 3:21 AM EDT) Pathologist [facility] POCT Glucose 141(H) 74 - 99 mg/dL [...] for testing. Comment 11/07/2024 3:23 AM EDT [employer] [facility] Data Capture Clerk ID Nelda Gerber 11/08/19 3:23 AM EDT [employer] [facility] LAB Device ID [id number] 11/07/2024 3:23 AM EDT HEALTHCARE LAB Specimen Type POC Capillary 11/07/2024 3:23 AM EDT [facility] Blood Capillary blood specimen / Unknown 11/07/2024 3:21 AM EDT 11/07/2024 3:23 AM EDT Nathaly Nowak MD LAB POINT OF CARE TE ST DOCKED DEVICE UNSOLICITED RESULTS Final Result [facility] [address] [place] [address] * (ABNORMAL) POCT glucose meter (11/07/2024 2:10 [...] Comment 11/07/2024 2:12 AM EDT [facility]ALTH[facility]ARE LAB Data Capture Clerk ID Nelda Gerber 11/08/19 2:12 AM EDT HEALTHCARE LAB Device ID [id number] 11/07/2024 2:12 AM EDT [facility] Specimen Type POC Capillary 11/07/2024 2:12 AM EDT [facility] Blood Capillary blood specimen / Unknown 11/07/2024 2:10 AM EDT 11/07/2024 2:12 AM EDT Nathaly Nowak MD LAB POINT OF CARE TE ST DOCKED DEVICE UNSOLICITED RESULTS Final Result [facility] [address] [place] [address] * (ABNORMAL) POCT glucose meter (11/07/2024 1:08 [...] Comment 11/07/2024 1:10 AM EDT HEALTHCARE LAB Data Capture Clerk ID Nelda Gerber 11/08/19 1:10 AM EDT HEALTHCARE LAB Device ID [id number] 11/07/2024 1:10 AM EDT [facility]ALTH[facility]ARE LAB Specimen Type POC Capillary 11/07/2024 1:10 AM EDT [facility] LAB Blood Capillary blood specimen / Unknown 11/07/2024 1:08 AM EDT 11/07/2024 1:10 AM EDT us Nathaly Nowak MD LAB POINT OF CARE TE ST DOCKED DEVICE UNSOLICITED RESULTS Final Result Performing Organization Address City/State/[facility] Co de Phone Number HEALTHCARE LAB [address] [place] [address] * (ABNORMAL) POCT glucose meter (11/07/2024 12:10 [...] Comment 11/07/2024 12:13 AM EDT [facility]ALTHCARE LAB Data Capture Clerk ID Nelda Gerber 11/08/19 12:13 AM EDT HEALTHCARE LAB Device ID [id number] 11/07/2024 12:13 AM EDT [facility]ALTH[facility]ARE LAB Specimen Type POC Capillary 11/07/2024 12:13 AM EDT [facility] Blood Capillary blood specimen / Unknown 11/07/2024 12:10 AM EDT 11/07/2024 12:13 AM EDT us Nathaly Nowak MD LAB POINT OF CARE TE ST DOCKED DEVICE UNSOLICITED RESULTS Final Result [facility] [address] [place] [address] * (ABNORMAL) POCT glucose meter (11/06/2024 11:14 PM EDT) [facility] POCT Glucose 71(L) 74 - 99 [...] for testing. Comment 11/06/2024 11:16 PM EDT [facility] Data Capture Clerk ID Nelda Gerber 11/07/19 25 11:16 PM EDT [facility] Device ID [id number] 11/06/2024 11:16 PM EDT [facility] Specimen Type POC Capillary 11/06/2024 11:16 PM EDT [facility] Blood Capillary blood specimen / Unknown 11/06/2024 11:14 PM EDT 11/06/2024 11:16 PM EDT Nathaly Nowak MD LAB POINT OF CARE TE ST DOCKED DEVICE UNSOLICITED RESULTS Final Result [facility] [address] [place] [address] * (ABNORMAL) POCT glucose meter (11/06/2024 10:07 PM EDT) [facility] POCT Glucose 140(H) 74 - 99 [...] 11/06/2024 10:09 PM EDT [facility] Data Capture Clerk ID Nelda Gerber 11/07/19 10:09 PM EDT HEALTHCARE LAB Device ID [id number] 11/06/2024 10:09 PM EDT [facility]ARE LAB Specimen Type POC Capillary 11/06/2024 10:09 PM EDT [facility] Blood Capillary blood specimen / Unknown 11/06/2024 10:07 PM EDT 11/06/2024 10:09 PM EDT Nathaly Nowak MD LAB POINT OF CARE TE ST DOCKED DEVICE UNSOLICITED RESULTS Final Result Performing Organization Address City/[facility]/ZIP Co de Phone Number [facility]ALTH[facility]ARE [facility] [address] [place] [address] * (ABNORMAL) POCT glucose meter (11/06/2024 8:22 [...] Comment 11/06/2024 8:25 PM EDT [facility] Data Capture Clerk ID Nelda Gerber 11/07/19 8:25 PM EDT [facility]ALTH[facility]ARE LAB Device ID [id number] 11/06/2024 8:25 PM EDT [facility] Specimen Type POC Capillary 11/06/2024 8:25 PM EDT [facility] Blood Capillary blood specimen / Unknown 11/06/2024 8:22 PM EDT 11/06/2024 8:25 PM EDT Nathaly Nowak MD LAB POINT OF CARE TE ST DOCKED DEVICE UNSOLICITED RESULTS Final Result Performing Organization Address City/[facility]/ZIP Co de Phone Number [facility] [address] [place] [address] * (ABNORMAL) POCT glucose meter (11/06/2024 7:31 PM EDT) [facility] POCT Glucose 359(H) 74 - 99 [...] Comment 11/06/2024 7:32 PM EDT [facility]ALTH[facility]ARE [facility] Data Capture Clerk ID Nelda Gerber 11/07/19 7:32 PM EDT [facility]ALTH[facility]ARE LAB Device ID [id number] 11/06/2024 7:32 PM EDT [facility] Specimen Type POC Capillary 11/06/2024 7:32 PM EDT [facility] Blood Capillary blood specimen / Unknown 11/06/2024 7:31 PM EDT 11/06/2024 7:32 PM EDT Nathaly Nowak MD LAB POINT OF CARE TE ST DOCKED DEVICE UNSOLICITED RESULTS Final Result Performing Organization Address City/State/[facility] Co de Phone Number [facility]CARE LAB [address] [place] [address] * (ABNORMAL) POCT glucose meter (11/06/2024 6:15 PM EDT) [facility] POCT Glucose 368(H) 74 - 99 [...] Comment 11/06/2024 6:17 PM EDT [facility]ALTH[facility]ARE LAB Data Capture Clerk ID Estefani Sheth 11/06/2024 6:17 PM EDT HEALTHCARE LAB Device ID [id number] 11/06/2024 6:17 PM EDT [facility]ARE [facility] Specimen Type POC Capillary 11/06/2024 6:17 PM EDT [facility] Blood Capillary blood specimen / Unknown 11/06/2024 6:15 PM EDT 11/06/2024 6:17 PM EDT Nathaly Nowak MD LAB POINT OF CARE TE ST DOCKED DEVICE UNSOLICITED RESULTS Final Result Performing Organization Address City/[facility] Co de Phone Number [facility]ARE [facility] [address] [place] [address] * (ABNORMAL) POCT glucose meter (11/06/2024 4:57 [...] for testing. Comment 11/06/2024 4:58 PM EDT [facility] Data Capture Clerk ID Estefani Sheth 11/06/2024 4:58 PM EDT HEALTHCARE LAB Device ID [id number] 11/06/2024 4:58 PM EDT [facility] Specimen Type POC Capillary 11/06/2024 4:58 PM EDT [facility] Blood Capillary blood specimen / Unknown 11/06/2024 4:57 PM EDT 11/06/2024 4:58 PM EDT Nathaly Nowak MD LAB POINT OF CARE TE ST DOCKED DEVICE UNSOLICITED RESULTS Final Result Performing Organization Address City/[facility]/ZIP Co de Phone Number [facility] [address] [place] [address] * (ABNORMAL) POCT glucose meter (11/06/2024 2:08 [...] Comment 11/06/2024 2:09 PM EDT [facility]ALTHCARE LAB Data Capture Clerk ID Brigitte Castellon 11/06/2024 2:09 PM EDT HEALTHCARE LAB Device ID [id number] 11/06/2024 2:09 PM EDT [facility]ARE LAB Specimen Type POC Capillary 11/06/2024 2:09 PM EDT [facility] Blood Capillary blood specimen / Unknown 11/06/2024 2:08 PM EDT 11/06/2024 2:09 PM EDT Nathaly Nowak MD LAB POINT OF CARE TE ST DOCKED DEVICE UNSOLICITED RESULTS Final Result [facility] [address] [place] [address] * (ABNORMAL) POCT glucose meter (11/06/2024 12:27 PM EDT) [facility] POCT Glucose 228(H) 74 - 99 [...] Comment 11/06/2024 12:28 PM EDT [facility]ALTH[facility]ARE LAB Data Capture Clerk ID Jacinta Galloway 11/06/2024 12:28 PM EDT [facility]ALTH[facility]ARE LAB Device ID [id number] 11/06/2024 12:28 PM EDT [facility]ARE LAB Specimen Type POC Capillary 11/06/2024 12:28 PM EDT [facility] Blood Capillary blood specimen / Unknown 11/06/2024 12:27 PM EDT 11/06/2024 12:28 PM EDT Nathaly Nowak MD LAB POINT OF CARE TE ST DOCKED DEVICE UNSOLICITED RESULTS Final Result [facility] [address] [place] [address] * (ABNORMAL) Tissue Culture and Gram Stain (11/06/2024 11:34 AM EDT) Culture Moderate Growth 7:35 AM EDT [facility] Culture 2+ Enterobacter cloacae complex(A) ANGÉLICA 11/15/2024 7:35 AM EDT [facility] Comment: This isolate has been identified using the FDA Approved [employer] [place] System The organism value for this result has been updated. These results have been appended to the previously preliminary verified report. Edited result: Previously reported as Gram Negative Jesus on 11/07/2024 at 1434 EDT. Culture 2+ Streptococcus mitis/oralis group(A) ANGÉLICA 11/15/2024 7:35 AM EDT [facility] Comment: This isolate has been identified using the FDA Approved [employer] System The organism value for this result has been updated. These results have been appended to the previously preliminary verified report. Culture 2+ Pasteurella stomatis(A) ANGÉLICA 11/15/2024 7:35 AM EDT [facility] Comment: This result was determined by [employer] tof mass spectrometry using the [employer] database and is for research use only. [...] - 11/15/2024 7:35 AM EDT PharmD Hunter Vanhoose requests penicillin, ceftriaxone and vancomycin on Streptococcus [...] GENERAL ORDAna FRITZ Edited Result - Final [facility] [address] [place] [address] * (ABNORMAL) Anaerobic Culture (11/06/2024 11:34 AM EDT) Culture No anaerobes isolated 11/14/2024 1:25 PM EDT [facility] Culture Staphylococcus pseudintermedius( A) 11/14/2024 1:25 PM EDT [facility] Comment: This result was determined by [employer] tof mass spectrometry using the [employer] database and is for research use only. [...] Susceptible Nathaly Nowak MD LAB MICROBIOLOGY - [facility] ATIYA FRITZ Edited Result - Final Performing Organization Address [facility]/ZIP Co de Phone Number [facility] [address] [place] [address] * (ABNORMAL) Routine Culture and Gram Stain (11/06/2024 11:29 AM EDT) Culture Moderate Growth 5:29 PM EDT [facility] Culture Enterobacter cloacae complex(A) 11/08/2024 5:29 PM EDT [facility] Comment: This isolate has been identified using the FDA Approved [employer] [place] System For susceptibility results refer to: - [id number] The organism value for this result has [...] Performing Organization Address [facility]/ZIP Co de Phone Number [facility] [address] [place] [address] * Fungal Culture, Routine (11/06/2024 11:29 AM EDT) Culture No Fungal Growth at 1 Week 11/13/2024 8:29 AM EDT [facility] Swab Topography unknown / Unknown 11/06/2024 11:29 AM EDT 11/06/2024 12:19 PM EDT Comment:Pre-op diagnosis: Surgical wound infection [T81.49XA] Nathaly Nowak MD LAB MICROBIOLOGY - GENERAL ATIYA AIXAONEIDA Final Result [facility] [address] [place] [address] * (ABNORMAL) Anaerobic Culture (11/06/2024 11:29 AM EDT) Culture No anaerobes isolated 11/14/2024 1:25 PM EDT [facility] Culture Streptococcus mitis/oralis group(A) 11/14/2024 1:25 PM EDT [facility] Comment: This result was determined by MALDI tof mass spectrometry using the [employer] database and is for research use only. [...] has been identified using the FDA Approved [employer] CA System This is an appended report. [...] Edited Result - Final Performing Organization Address City/[facility]/ZIP Co de Phone Number [facility] [address] [place] [address] * Routine Culture and Gram Stain (11/06/2024 [...] MICROBIOLOGY - GENERAL ATIYA FRITZ Final Result [facility] [address] [place] [address] * Fungal Culture, Routine (11/06/2024 11:28 AM EDT) Culture No Fungal Growth at 1 Week 11/13/2024 8:29 AM EDT [facility] Swab Topography unknown / Unknown 11/06/2024 11:28 AM EDT 11/06/2024 12:20 PM EDT Comment:Pre-op diagnosis: Surgical wound infection [T81.49XA] Nathaly Nowak MD LAB MICROBIOLOGY - [facility] LAM Final Result Performing Organization Address [facility] Co de Phone Number [facility] [address] [place] [address] * Anaerobic Culture (11/06/2024 11:28 AM EDT) Culture No growth at day 4 11/13/2024 12:53 PM EDT [facility] Swab Topography unknown / Unknown 11/06/2024 11:28 AM EDT 11/06/2024 12:20 PM EDT Comment:Pre-op diagnosis: Surgical wound infection [T81.49XA] Nathaly Nowak MD LAB MICROBIOLOGY - [facility] ATIYA FRITZ Final Result Performing Organization Address [facility] [place] [address] * (ABNORMAL) POCT glucose meter (11/06/2024 10:16 [...] 11/06/2024 10:18 AM EDT [facility] Data Capture Clerk ID Lacy Griffin 11/07/19 25 10:18 AM EDT [facility] Device ID [id number] 11/06/2024 10:18 AM EDT [facility] Specimen Type POC Capillary 11/06/2024 10:18 AM EDT [facility] Blood Capillary blood specimen / Unknown 11/06/2024 10:16 AM EDT 11/06/2024 10:18 AM EDT Nathaly Nowak MD LAB POINT OF CARE TE ST DOCKED DEVICE UNSOLICITED RESULTS Final Result Performing Organization Address City/[facility] de Phone Number [facility] [address] [place] [address] * (ABNORMAL) POCT glucose meter (11/06/2024 5:58 [...] for testing. Comment 11/06/2024 6:01 AM EDT [facility] Data Capture Clerk ID Raj Laird 11/07/19 6:01 AM EDT [facility] Device ID [id number] 11/06/2024 6:01 AM EDT [facility] Specimen Type POC Capillary 11/06/2024 6:01 AM EDT [facility] Blood Capillary blood specimen / Unknown 11/06/2024 5:58 AM EDT 11/06/2024 6:01 AM EDT Nathaly Nowak MD LAB POINT OF CARE TE ST DOCKED DEVICE UNSOLICITED RESULTS Final Result Performing Organization Address City/[facility] Co de Phone Number [facility] [address] [place] [address] * (ABNORMAL) POCT glucose meter (11/06/2024 5:36 [...] Comment 11/06/2024 5:38 AM EDT [facility] Data Capture Clerk ID Shahid Sanches 11/06/2024 5:38 AM EDT [facility] Device ID [id number] 11/06/2024 5:38 AM EDT [facility] Specimen Type POC Capillary 11/06/2024 5:38 AM EDT [facility] Blood Capillary blood specimen / Unknown 11/06/2024 5:36 AM EDT 11/06/2024 5:38 AM EDT us Nathaly Nowak MD LAB POINT OF CARE TE ST DOCKED DEVICE UNSOLICITED RESULTS Final Result Performing Organization Address [facility] Co de Phone Number [facility] [address] [place] [address] * (ABNORMAL) Hemoglobin A1c (11/06/2024 1:07 AM EDT) Hemoglobin A1c 7.6(H) <5.7 % 11/06/2024 11:09 AM EDT [facility] Blood Venous blood specimen / Unknown Venipuncture / Unknown 11/06/2024 1:07 AM EDT 11/06/2024 1:26 AM EDT Narrative [facility] - 11/06/2024 11:09 AM [...] ORDERABLES Final Resu lt Performing Organization Address City/[facility]/ZIP Co de Phone Number [facility] [address] [place] [address] * Blood Culture (Aerobic/Anaerobet Set) (11/06/2024 1:07 AM EDT) Culture No growth at day 5 11/11/2024 2:49 AM EDT [facility] Blood Structure of right hand / Unknown Venipuncture / Unknown 11/06/2024 1:07 AM EDT 11/06/2024 2:36 AM EDT Nathaly Nowak MD LAB MICROBIOLOGY - GENERAL ORDE RABONEIDA Final Result Performing Organization Address [facility]/ZIP Co de Phone Number [facility] [address] [place] [address] * Blood Culture (Aerobic/Anaerobet Set) (11/06/2024 1:07 AM EDT) Culture No growth at day 5 11/11/2024 3:01 AM EDT [facility] Blood Structure of antecubital vein / Unknown Venipuncture / Unknown 11/06/2024 1:07 AM EDT 11/06/2024 2:36 AM EDT us Nathaly Nowak MD LAB MICROBIOLOGY - GENERAL ORDE LAM Final Result Performing Organization Address City/[facility]/ZIP Co de Phone Number [facility] [address] [place] [address] * (ABNORMAL) Basic metabolic panel (11/06/2024 1:07 [...] Resu lt [facility] [address] [place] [address] * Phosphorus (11/06/2024 1:07 AM EDT) Phosphorus, Plasma 3.2 2.5 - 4.5 mg/dL 11/06/2024 1:41 AM EDT [facility] Blood Venous blood specimen / Unknown Venipuncture / Unknown 11/06/2024 1:07 AM EDT 11/06/2024 1:12 AM EDT Nathaly Nowak MD LAB BLOOD ORDERABLES Final Resu lt [facility] [address] [place] [address] * Magnesium (11/06/2024 1:07 AM EDT) Magnesium, Plasma 2.2 1.9 - 2.4 mg/dL 11/06/2024 1:41 AM EDT [facility] Blood Venous blood specimen / Unknown Venipuncture / Unknown 11/06/2024 1:07 AM EDT 11/06/2024 1:12 AM EDT us Nathaly Nowak MD LAB BLOOD ORDERABLES Final Resu lt [facility] [address] [place] [address] * (ABNORMAL) CBC (11/06/2024 1:07 AM EDT) [...] Performing Organization Address [facility]/ZIP Co de Phone Number [facility] [address] [place] [address] * Gold Top (11/06/2024 12:58 AM EDT) Extra Hold for add-ons 11/06/2024 3:21 AM EDT [facility] Comment:Auto resulted. Blood Venous blood specimen / Unknown 11/06/2024 12:58 AM EDT 11/06/2024 1:13 AM EDT us Nathaly Nowak MD LAB BLOOD ORDERABLES Final Resu lt Performing Organization Address [facility] Co de Phone Number [facility] [address] [place] [address] * Gold Top (11/06/2024 12:58 AM EDT) Extra Hold for add-ons 11/06/2024 3:21 AM EDT [facility] Comment:Auto resulted. Blood Venous blood specimen / Unknown 11/06/2024 12:58 AM EDT 11/06/2024 1:13 AM EDT us Nathaly Nowak MD LAB BLOOD ORDERABLES Final Resu lt Performing Organization Address City/[facility] Co de Phone Number [facility] [address] [place] [address] * Light Green Top (11/06/2024 12:58 AM EDT) Extra Hold for add-ons 11/06/2024 3:21 AM EDT [facility] Comment:Auto resulted. Blood Venous blood specimen / Unknown 11/06/2024 12:58 AM EDT 11/06/2024 1:13 AM EDT us Nathaly Nowak MD LAB BLOOD ORDERABLES Final Resu lt Performing Organization Address [facility] Co de Phone Number [facility] [address] [place] [address] * Light Blue Top (11/06/2024 12:58 AM EDT) Extra Hold for add-ons 11/06/2024 3:21 AM EDT [facility] Comment:Auto resulted. Blood Venous blood specimen / Unknown 11/06/2024 12:58 AM EDT 11/06/2024 1:13 AM EDT Nathaly Nowak MD LAB BLOOD ORDERABLES Final Resu lt Performing Organization Address [facility] de Phone Number [facility] [address] [place] [address] * Light Blue Top (11/06/2024 12:58 AM EDT) Extra Hold for add-ons 11/06/2024 3:21 AM EDT [facility] Comment:Auto resulted. Blood Venous blood specimen / Unknown 11/06/2024 12:58 AM EDT 11/06/2024 1:13 AM EDT Nathaly Nowak MD LAB BLOOD ORDERABLES Final Resu lt Performing Organization Address [facility] de Phone Number [facility] [address] [place] [address] * (ABNORMAL) POCT glucose meter (11/06/2024 12:45 AM EDT) POCT Glucose 204(H) 74 - 99 mg/dL 11/06/2024 12:48 AM EDT [facility] Comment:Accuracy [...] Comment 11/06/2024 12:48 AM EDT [facility] Data Capture Clerk ID Raj Laird 11/07/19 12:48 AM EDT [facility] Device ID [id number] 11/06/2024 12:48 AM EDT [facility] Specimen Type POC Capillary 11/06/2024 12:48 AM EDT [facility] Blood Capillary blood specimen / Unknown 11/06/2024 12:45 AM EDT 11/06/2024 12:48 AM EDT us Nathaly Nowak MD LAB POINT OF CARE TE ST DOCKED DEVICE UNSOLICITED RESULTS Final Result Performing Organization Address City/State/[facility] Co de Phone Number [facility] [address] [place] [address] documented in this encounter Visit Diagnoses Diagnosis [...] Discontinued, Routine 0938 (Given - Provider: Devora F Bo)1356 (Given - Provider: [facility] Bo)1805 (Given - Provider: [facility] Bo)212 (Given - Provider: Jonathan Vale RN) 0838 (Given - Provider: [facility] Bo)1317 (Given - Provider: [facility] Bo)1753 (Given - Provider: [facility] Bo)203 (Given - Provider: Jonathan Vale RN) 0856 (Given - Provider: Yazmin Bhatt RN)1354 (Given - Provider: Yazmin Bhatt RN)1800 (Canceled Entry - Provider: Automatic Discharge Provider - Comment: Automatically canceled at discontinue of medication order) metoprolol tartrate (Lopressor) tablet 100 mg 100 mg, Oral, 2 times daily, First dose on Mon11/06/24 at 0040, Until Discontinued, Routine 0938 (Given - Provider: Devora Criss Camarenab)212 (Given - Provider: Jonathan Vale RN) 0838 (Given - Provider: [facility] Bo)203 (Given - Provider: Jonathan Vale RN) 0856 (Given - Provider: Yazmin Bhatt RN) metroNIDAZOLE (Flagyl) tablet 500 mg (CANCELED) 500 mg, Oral, 3 times daily, First dose on Mon11/07/24 at 2000, Until Discontinued, Routine 0940 (Given - Provider: Devora Criss Bo)1805 (Given - Provider: [facility] Bo)2122 (Given - Provider: Jonathan Vale RN) [...] documented as of this encounter Care Teams District Sales Leader Relationship Specialty Start Date End Date Asad Victor MD [address] [place] [address] PCP - General 10/07/22 documented as of this encounter
--- OUTSIDE RECORDS SUMMARY | 2024-11-06 10:08 | XMS_ITS | Encounter Summary ---
Author Organization Healthcare Address [address] [place] [address] Care Team Providers Care Tipple Supervisor Name Role Phone Asad Victor MD Primary Care Provider + [phone] Reason for Visit * Reason Comments Post-op Problem Wound Check * Auth/Cert (Routine) Specialty Diagnoses / Procedures Referred By Contac t Referred To Contact Diagnoses Wound infection Post-op Vasc Sx wounds - sx on 10/17 at Nathaly Nowak MD [address] [address] Phone: tel: fax: [facility] Emergency Department [address] [place] [address] Phone: tel: Referral ID Status Reason Start Date Expiration Date Visits Re quested Visits Authorized [id number] 1 1 Encounter Details Date Type Department Care Team (Late st Contact Info) Description 11/06/2024 10:08 AM EDT - 11/06/2024 11:38 AM EDT Surgery [facility] OPERATING ROOM [address] [place] [address] Nathaly Nowak MD [id number] [place] [address] Left groin exploration and washout, [...] Beckett MD Resident - Assisting 1 Jerry Hoclomb MD Fellow 1 documented in this encounter [...] drink first t dino in the morning (EYE-NOCTURNIST) to steady your nerves or to get rid of a hangover? 0 10/18/2021 CAGE Questionnaire Score 0 022 Utilities Answer Date Recorded In the past 12 months has [employer], gas, oil, or water [employer] threatened to shut off services in your [...] Carmona with any questions or concerns at [phone]. It is important that you get your [...] OPAT Enrollment Progress Note Update Patient: Bev Bobby : 1960 Referring ID Team: General ID [...] PM EDT Case Management Discharge Note Bev Bobby 64 y.o. 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 [address] Go to Infusion Clinic. Please arrive at 11 am daily. [place] [address] Go to Wound care clinic. First appointment is 1:10 pm. Please call [phone] with scheduling concerns. Discharge Transportation: Transportation Anticipated: medical transport Transportation Home at Discharge: Medical Transport Follow Up Transport: Transportation Needed to Follow up Appoinments: Medical Transport Additional Comments: Patient discharging home. No other SW needs identified. Mariia Macedo PRODUCTION REPRODUCTION MANAGER * Hospital Course - Melecio Echevarria DO - 11/14/2024 10:25 AM EDT Mr. Bobby is a 64 y/o male that presented to [facility] on 11/06/2024 for surgical wound [...] wound vac changes. * Progress Notes - BeckyrBette RN - 11/14/2024 8:34 AM EDT BRENNAN [...] patient Goal: Patient-Specific Goal (Individualized) Flowsheets (Taken 11/13/20242199) Patient/Family-Specific Goals (Include Timeframe): Patient will be free of falls during shift Individualized Care Needs: saftey Anxieties, Fears or Concerns: none expressed * Progress Notes - Mariia Macedo - 11/13/2024 1:57 PM EDT Case Management Adult Progress Note Bev Bobby 64 y.o. male CSN: [id number] Admission: 11/05/2024 9:45 PM Primary Problem: Wound infection Wound vac to be delivered today by at bedside. SW sent referral/orders to [facility] wound care center (fax [phone]) and infusion clinic (fax [phone]). Plan to discharge tomorrow. SW will continue to follow. Mariia Macedo PRODUCTION REPRODUCTION MANAGER * Progress Notes - Bianca Knight, PharmD - 11/13/2024 12:55 PM EDT Vancomycin therapy has been stopped per ID recommendation. Pharmacist will sign off from dosing and monitoring vancomycin. Please re- consult a pharmacist if more vancomycin is indicated. Bianca Knight PharmD, [facility] * Progress Notes - Ailin Levy [...] Lumen PICC Antimicrobial Regimen: IV Ertapenem 1g [id number] start date:11/06/2024 Projected End date:12/18/2024 IV Micafungin 150mg [id number] Start date: 11/12/2024 Projected End Date: 12/24/2024 [...] OPAT Team Attn: Dr Kraus Fax #: [phone] Appointments: (Dr Appiah 08/02/2024 at 2.30pm) at[facility] [address] [place] [address] (Select Option 3 for IV Antibiotic / PICC line related issues) For questions regarding OPAT prior to discharge, reach out to the OPAT team via [employer] Secure Chat (Group: OPAT Referral Team). For all questions regarding OPAT after discharge should be directed to the OPAT Team at (Select Option 3 for IV Antibiotics/PICC Issues) between 8am-5pm. After 5 pm, or during weekends/ holidays, please call the paging multiple pressure riveter operator at to reach the on-call ID [...] the findings. Cardiac Device Check - [facility]: Pre-operative CIED Report Assessment and Sara-Procedural Reommendations: Name: Bev Bobby Date: 10/17/2024 : 1960 Age: 64 y.o. 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 Lead integrity test [...] recommendations. Supporting reports can be found in [employer] media file. Micro: Susceptibility data from last [...] Units Date/Time Tissue Culture and Gram Stain [[id number]] (Abnormal) (Susceptibility) Collected: 11/06/24 1134 Order Status: Completed Specimen: Tissue from Other (specify site) Updated: 11/12/24 1334 Culture Moderate Growth 2+ Enterobacter cloacae complex Comment: This isolate has been identified using the FDA Approved [employer] CA System The organism value for this result has been updated. These results have been appended to the previously preliminary verified report. Edited result: Previously reported as Gram Negative Jesus on 11/07/2024 at 1434 EDT. 2+ Streptococcus mitis/oralis group Comment: This isolate has been identified using the FDA Approved [employer] CA System The organism value for this result has been updated. These results have been appended to the previously preliminary verified report. 2+ Pasteurella stomatis Comment: This result was determined by MALDI tof mass spectrometry using the Encarnate database and is for research use only. [...] stewardship team. Comprehensive GI Panel by PCR [[id number]] (Normal) Collected: 11/12/24 0950 Order Status: Completed [...] if clinically indicated. Clostridiodes (Clostridium) difficile PCR [[id number]] (Normal) Collected: 11/12/24 0950 Order Status: Completed [...] high complexity clinical laboratory testing. 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 These results have been appended to the previously preliminary verified report. Edited result: Previously reported as Yeast on 11/11/2024 at 1317 EDT. ISIDRO No fungal elements seen Additional Susceptibilities and/or Identification [[id number]] Collected: 11/11/24 1240 Order Status: Completed Specimen: Tissue from Wound (specify site): Additional Susceptibilities and/or Identification [[id number]] Collected: 11/11/24 1238 Order Status: Completed Specimen: Tissue from Wound (specify site): Additional Susceptibilities and/or Identification [[id number]] Collected: 11/11/24 1237 Order Status: Completed Specimen: Tissue from Wound (specify site): AFB Culture, Non Respiratory Source and Acid Fast Stain [[id number]] Collected: 11/06/24 1134 Order Status: Completed Specimen: Tissue from Other (specify site) Updated: 11/11/24 0938 AFB Culture No Mycobacterial Growth <1 Week Acid Fast Stain No acid fast bacilli seen Blood Culture (Aerobic/Anaerobet Set) [[id number]] Collected: 11/06/24106 Order Status: Completed Specimen: Blood from AC, Left Updated: 11/11/24 0301 Culture No growth at day 5 Blood Culture (Aerobic/Anaerobet Set) [[id number]] Collected: 11/06/24106 Order Status: Completed Specimen: Blood [...] 11/07 Cefazolin: 11/06 Assessment: Patient Summary: Bev Bobby is a 64 y.o. male with [...] OSH. On 11/06, pt went to the [facility] vascular surgery for left groin exploration and [...] stay a facility, plan for [facility] daily IV [...] q6h Anthony Gill MD 1,000 mg at 11/12/24 1805 aspirin [...] Anthony Reyes MD 500 mg at 11/13/24 08 metoprolol tartrate (Lopressor) tablet 100 mg [...] Intervention: Prevent or Manage Pain Flowsheets (Taken 11/11/20248 by Jonathan Vale, RN) Sensory Stimulation Regulation: care clustered lighting decreased quiet environment promoted Medication Review/Management: medications reviewed * Consults - Anabel Ovalle RD - 11/12/2024 9:59 AM EDT Adult Nutrition Evaluation Note Bev Bobby 64 y.o. male CSN: [id number] Room/Bed 682/682B Nutrition evaluation type: assessment Reason for evaluation: LOS Hospital course: 64 y.o. male with PMHx significant for COPD, CAD s/p PCI (on Xarelto) s/p pacemaker c/b left SANDIP pseudoaneurysm s/p thrombin injection 09/21/24, chronic limb ischemia s/p left femoralendarterectomy with external iliac/common femoral artery stenting 10/17/24, T2DM, HLD, HTN, RLS who presented to the [facility] on 11/05/2024 with problems with his [...] (194 lb 3.6 oz) BMI (Calculated): 30.41 Homer Body Weight (kg): 67.3 Percent Homer Body Weight: 131 Adjusted Body Weight (kg): [...] oz) Estimated Needs: Kcal/ K-30 Kcal Provided: 5258-9634 Kcal Needs Based On: Adjusted weight Gm Protein/ Kg : 1.2-1.5 Protein Provided: 87-108 Protein Needs Based On: Adjusted weight Metabolic Cart Study Results: Current Nutrition Intake: Diet Order: Adult Diet Diet Texture: Regular Adult Carbohydrate Restriction: Consistent CHO 1 (5781-9641 Jatinder, 65 g/meal) Percent Meals Eaten (%): avg 63% x 6 emals Diet Experience and Nutrition History: Diet Education Provided: Will monitor Pertinent home medications: clopidogrel, docusate sodium, Lantus, Humalog, lisinopril, metoprolol tartrate, pravastatin, rivaroxaban, ropinirole, tamsulosin Moravian needs: Nutrition Focused Physical Exam: Physical exam [...] and skin integrity Acuity Level: 3 Anabel E Vasquez, RD, LD [1] Past Medical History: Diagnosis Date Arthritis Old myocardial infarction History of myocardial infarction [2] Past Surgical History: Procedure Laterality Date ANKLE SURGERY Right CARDIAC PACEMAKER PLACEMENT CAROTID ENDARTERECTOMY N/A 2017 Endarterectomy Carotid Artery from [employer] CORONARY ANGIOPLASTY Left Coronary Angiography With Concomitant Left Heart Catheterization from [employer] CORONARY ARTERY BYPASS GRAFT N/A 2018 3V ELBOW SURGERY Right ENDARTERECTOMY Left 10/17/2024 common/SFA/Profunda thromboendarterectomy, EIA/CONCIERGE stent HERNIA REPAIR KNEE ARTHROSCOPY Left VASCULAR SURGERY Left 09/21/2024 CONCIERGE pseudoaneurym injection [3] Social History Tobacco Use [...] the findings. Cardiac Device Check - [facility]: Pre-operative CIED Report Assessment and Sara-Procedural Reommendations: Name: Bev Bobby Date: 10/17/2024 : 1960 Age: 64 y.o. Patient has a Food Court Team Member: [employer] SYSTEMS PLANNER-PM Remaining battery longevity adequate. Lead integrity test [...] recommendations. Supporting reports can be found in [employer] media file. Micro: Susceptibility data from last [...] Units Date/Time Tissue Culture and Gram Stain [[id number]] (Abnormal) (Susceptibility) Collected: 11/06/24 1134 Order Status: Completed Specimen: Tissue from Other (specify site) Updated: 11/12/24 1334 Culture Moderate Growth 2+ Enterobacter cloacae complex Comment: This isolate has been identified using the FDA Approved [employer] CA System The organism value for this result has been updated. These results have been appended to the previously preliminary verified report. Edited result: Previously reported as Gram Negative Jesus on 11/07/2024 at 1434 EDT. 2+ Streptococcus mitis/oralis group Comment: This isolate has been identified using the FDA Approved [employer] CA System The organism value for this result has been updated. These results have been appended to the previously preliminary verified report. 2+ Pasteurella stomatis Comment: This result was determined by MALDI tof mass spectrometry using the Encarnate database and is for research use only. [...] stewardship team. Comprehensive GI Panel by PCR [[id number]] (Normal) Collected: 11/12/24 0950 Order Status: Completed [...] if clinically indicated. Clostridiodes (Clostridium) difficile PCR [[id number]] (Normal) Collected: 11/12/24 0950 Order Status: Completed [...] high complexity clinical laboratory testing. Anaerobic Culture [[id number]] Collected: 11/06/24 1128 Order Status: Completed Specimen: Swab from Other (specify site) Updated: 11/12/24 1118 Culture No growth at day 4 Fungal Culture, Tissue and ISIDRO [[id number]] (Abnormal) Collected: 11/06/24 1134 Order Status: Completed Specimen: Tissue from Other (specify site) Updated: 11/12/24 1033 Culture Reading Mycological 4 Weeks Rare [place] Sana parapsilosis Comment: This isolate has been identified using the FDA Approved [employer] CA System The organism value for this result has been updated. These results have been appended to the previously preliminary verified report. Edited result: Previously reported as Yeast on 11/11/2024 at 1317 EDT. ISIDRO No fungal elements seen Additional Susceptibilities and/or Identification [[id number]] Collected: 11/11/24 1240 Order Status: Completed Specimen: Tissue from Wound (specify site): Additional Susceptibilities and/or Identification [[id number]] Collected: 11/11/24 1238 Order Status: Completed Specimen: Tissue from Wound (specify site): Additional Susceptibilities and/or Identification [[id number]] Collected: 11/11/24 1237 Order Status: Completed Specimen: Tissue from Wound (specify site): AFB Culture, Non Respiratory Source and Acid Fast Stain [[id number]] Collected: 11/06/24 1134 Order Status: Completed Specimen: Tissue from Other (specify site) Updated: 11/11/24 0938 AFB Culture No Mycobacterial Growth <1 Week Acid Fast Stain No acid fast bacilli seen Blood Culture (Aerobic/Anaerobet Set) [[id number]] Collected: 11/06/24106 Order Status: Completed Specimen: Blood from AC, Left Updated: 11/11/24 0301 Culture No growth at day 5 Blood Culture (Aerobic/Anaerobet Set) [[id number]] Collected: 11/06/24106 Order Status: Completed Specimen: Blood [...] 11/07 Cefazolin: 11/06 Assessment: Patient Summary: Bev Bobby is a 64 y.o. male with [...] OSH. [facility] [...] want to stay a facility, plan for [facility] daily IV abx. Plan for [...] 1,000 mg 1,000 mg Oral q6h [facility] Anthony Reyes MD 1,000 mg at 11/12/24 1356 aspirin chewable tablet 81 mg 81 mg Oral Daily Reid Daniels MD 81 mg at 11/12/24 0938 cefepime (Maxipime) 2 g in sodium chloride 0.9% 100 mL IVPB (vial adapter required) 2 g [id number] Reid Daniels MD 36.7 mL/hr at 11/12/24 [...] send him home on micafungin as [place] Sana parapsilosis grew and we do not [...] Jonathan aVle RN Outcome: Ongoing, Progressing Intervention: Identify and [...] Vale RN Outcome: Ongoing, Progressing 11/11/20242336 by Jnoathan Vale RN Outcome: Ongoing, Progressing Intervention: Prevent [...] Behavioral Health Symptom Control Flowsheets (Taken 11/11/2024 234) Medication Review/Management: medications [...] Maintain Osteoarthritis Symptom Control Flowsheets (Taken 11/11/2024 234) Activity Management: ambulated in room activity encouraged education provided Medication Review/Management: medications reviewed Goal: Bariatric Home Regimen Maintained 11/11/20242347 by Jonathan Vale RN Outcome: Ongoing, Progressing 11/11/20242336 by Jonathan Vale RN Outcome: Ongoing, Progressing Intervention: Maintain and Manage Postbariatric Surgery Care Flowsheets (Taken 11/11/2024 234) Medication Review/Management: medications [...] Support Wellbeing and Self-Management Success Flowsheets (Taken 11/11/2024 2348) Supportive Measures: decision-making supported Family/Support System Care: self-care encouraged Goal: Optimal Functional Ability 11/11/20242347 by Jonathan Vale RN Outcome: Ongoing, Progressing 11/11/20242336 by Jonathan Vale RN Outcome: Ongoing, Progressing Intervention: Optimize Functional Ability Flowsheets (Taken 11/11/20248) Activity Management: ambulated in room activity encouraged [...] Progressing Intervention: Prevent Infection Flowsheets (Taken 11/11/2024 1615) Infection Prevention: environmental surveillance performed rest/sleep promoted [...] portions of the procedure(s) and immediately available [facility] the entire duration. See resident note for details. * Progress Notes - Mariia Macedo - 11/11/2024 1:10 PM EDT Case Management Adult Progress Note Bev Bobby 64 y.o. male CSN: [id number] Admission: 11/05/2024 9:45 PM Primary Problem: Wound infection Patient refusing inpatient placement for IV abx. [facility] infusion clinic can provide treatment. Face sheet, IV abx orders, and order for PICC care/labs/dressing changes need to be faxed to [phone]. Voicemail left with wound care clinic. Wound vac approved per , delivery pending. Cale continue to follow. Mariia Macedo PRODUCTION REPRODUCTION MANAGER * Progress Notes - Dotty Sethi MD [...] the findings. Cardiac Device Check - [facility] EP-[facility]: Pre-operative CIED Report Assessment and Sara-Procedural Reommendations: Name: Bev Bobby Date: 10/17/2024 : 1960 Age: 64 y.o. 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 Lead integrity test [...] Non Respiratory Source and Acid Fast Stain [[id number]] Collected: 11/06/24 1134 Order Status: Completed Specimen: Tissue from Other (specify site) Updated: 11/11/24 0938 AFB Culture No Mycobacterial Growth <1 Week Acid Fast Stain No acid fast bacilli seen Blood Culture (Aerobic/Anaerobet Set) [[id number]] Collected: 11/06/24 0107 Order Status: Completed Specimen: Blood from AC, Left Updated: 11/11/24 0301 Culture No growth at day 5 Blood Culture (Aerobic/Anaerobet Set) [[id number]] Collected: 11/06/24 0107 Order Status: Completed Specimen: Blood from Hand, Right Updated: 11/11/24 0249 Culture No growth at day 5 Anaerobic Culture [[id number]] Collected: 11/06/24 1128 Order Status: Completed Specimen: Swab from Other (specify site) Updated: 11/10/24 1441 Culture No growth at day 4 Routine Culture and Gram Stain [[id number]] Collected: 11/06/241127 Order Status: Completed Specimen: Swab from Other (specify site) Updated: 11/10/241123 Culture No growth at day 4 Gram Stain Result No organisms seen No polymorphonuclear leukocytes seen Anaerobic Culture [[id number]] (Abnormal) Collected: 11/06/241128 Order Status: Completed Specimen: Swab from Other (specify site) Updated: 11/10/24 0718 Culture No anaerobes isolated Mixed skin clifton Comment: The organism value for this result has been updated. These results have been appended to the previously preliminary verified report. Narrative: Mixed Skin Clifton includes Streptococcus mitis/oralis group and Staphylococcus Pseudintermedius Anaerobic Culture [[id number]] (Abnormal) Collected: 11/06/24 113 Order Status: Completed [...] 11/07 Cefazolin: 11/06 Assessment: Patient Summary: Bev Bobby is a 64 y.o. male with [...] OSH. On 11/06, pt went to the [facility] vascular surgery for left groin exploration and [...] tablet 1,000 mg 1,000 mg Oral q6h JUAN Anthony Reyes MD 1,000 mg at 11/10/24 1741 aspirin chewable tablet 81 mg 81 mg Oral Daily Reid Daneils MD 81 mg at 11/11/24 0825 cefepime (Maxipime) 2 g in sodium chloride 0.9% 100 mL IVPB (vial adapter required) 2 g [id number] Reid Daniels MD 36.7 mL/hr at 11/11/24 [...] Nightly Reid Daniels MD 28 Units at 11/10/242010 insulin lispro (Admelog) 100 units/mL injection - Correction - Resistant Dose 0- 10 Units Subcutaneous TID with meals Reid Daniels MD 2 Units at 11/10/24 165 insulin lispro (Admelog) injection - Correction - [...] flush 10 mL 10 mL Intravenous PRN Zhang, Jerry E, MD sodium chloride 0.9 % flush 10 [...] from the original note were not included. [facility] Department of Surgery Division of Vascular Surgery Surgery Progress Note 11/11/24 Bev Bobby Subjective Subjective: HPI 64yoM PMHx COPD, T2DM, HLD, HTN, RLS, CAD s/p PCI (on Xarelto) s/p pacemaker c/b left SANDIP pseudoaneurysm s/p thrombin injection 09/21/24, CLI s/p left femoral endarterectomy with EIA/CONCIERGE stenting 10/17/24, [place] [facility] [...] Assessment/Plan Assessment and Plan: Bev Bobby is a 64yo M PMHx COPD, T2DM, HLD, HTN, RLS, CAD s/p PCI (on Xarelto) s/p pacemaker c/b left SANDIP pseudoaneurysm s/p thrombin injection 09/21/24, CLI s/p left femoral endarterectomy with EIA/CONCIERGE stenting 10/17/24, who [facility] [place] [facility] [...] 0101) Hypoglycemia Management: blood glucose monitored * Progress Notes - Kalpesh Lord, PharmD - 11/10/2024 12:49 PM EDT Pharmacokinetic Consult - Therapeutic Drug Monitoring HPI and Hospital Course: Bev Bobby is a 64 y.o. male [...] to follow, Submitted by: Kalpesh Lord PharmD, [facility] 11/10/2024 12:45 PM * Care Plan [...] Note: 11/10/24 Patient (Date of ): Bev Bobby (1960) Subjective History of Present Illness 64yoM PMHx COPD, T2DM, HLD, HTN, RLS, CAD s/p PCI (on Xarelto) s/p pacemaker c/b left SANDIP pseudoaneurysm s/p thrombin injection 09/21/24, CLI s/p left femoral endarterectomy with EIA/CONCIERGE stenting 10/17/24, who [facility] [place] [facility] [...] Assessment/Plan Assessment and Plan: Bev Bobby is a 64yo M PMHx COPD, T2DM, HLD, HTN, RLS, CAD s/p PCI (on Xarelto) s/p pacemaker c/b left SANDIP pseudoaneurysm s/p thrombin injection 09/21/24, CLI s/p left femoral endarterectomy with EIA/CONCIERGE stenting 10/17/24, [facility] [place] [facility] [...] hygiene measures promoted sitting position facilitated Taken 11/09/2024 0101 Bowel Motility Enhancement: ambulation promoted Goal: Fluid [...] Barraza RN Authorized by: Nathaly Nowak MD [place] Protocol: Verbal consent obtained?: Yes Written consent [...] selection rationale: Left pacemaker Catheter Lot #: [id number] Catheter manager of quality: Debteye Catheter placed: Single lumen Catheter size: 4 Fr Catheter trimmed length: 42 Catheter threaded length: 42 Vein placed in: SVC Catheter cm indwellin Catheter cm outside: 0 Placement confirmed by: Kanjoya 3CG technology Pre-procedure: Landmarks identified Ultrasound guidance: [...] Note: 11/09/24 Patient (Date of ): Bev Bobby (1960) Subjective History of Present Illness 64yoM PMHx COPD, T2DM, HLD, HTN, RLS, CAD s/p PCI (on Xarelto) s/p pacemaker c/b left SANDIP pseudoaneurysm s/p thrombin injection 09/21/24, CLI s/p left femoral endarterectomy with EIA/CONCIERGE stenting 10/17/24, who [facility] [place] [facility] [...] 1859 11/07/24 190 - 11/08/24 0659 11/08/24 07 - 11/08/24 [...] Lab Units 11/09/245 11/08/24 0439 11/07/24 1137 HEMOGLOBIN g/dL 9.2* 9.2* 8.5* HEMATOCRIT % 28.3* 28.9* 26.0* INR Cr Results from last 7 days Lab Units 11/09/2441411/08/24 0439 11/07/24 1137 CREATININE mg/dL 0.67* 0.75 0.92 Lactate No lab exists for component: LACTTEVEN Radiographic Interpretation: No relevant imaging to review. Medications reviewed. Vital signs reviewed. Labs reviewed. Assessment/Plan Bev Bobby is a 64yo M PMHx COPD, T2DM, HLD, HTN, RLS, CAD s/p PCI (on Xarelto) s/p pacemaker c/b left SANDIP pseudoaneurysm s/p thrombin injection 09/21/24, CLI s/p left femoral endarterectomy with EIA/CONCIERGE stenting 10/17/24, who [facility] [place] [facility] [...] of Care [place] M4 student [facility] Cosigned by Nathaly Nowak MD at 11/11/2024 [...] EDT Physical Therapy Evaluation Patient Name: Bev Bobby Today's Date: 11/09/2024 PT Discharge Recommendations: Home with assistance Equipment Recommended: Patient owns appropriate equipment History Bev Bobby is 64 y.o. male admitted 11/05/2024 for [...] PT session. Patient reports he went to [facility] 12th floor via w/c yesterday [...] Mobility: Ambulatory- community (was utilizing scooter at [employer] since discharge) Mobility Noble: Independent gait with device History of Falls: [...] Mobility Bed Mobility Exam: Scooting/Bridging Level of Noble: Modified independence Bed Mobility Exam: Supine to Sit Level of Noble: Modified Noble Transfers Transfer Exam: Sit to stand Level of Noble: Modified independence Assistive Device: Rollator Transfer Exam: Stand to Sit Level of Noble: Modified independence Assistive Device: Rollator Ambulation Device: [...] maintain/improve functional mobility and endurance. Standardized Assessments [facility] 6-Clicks Mobility Assessment Difficulty patient [...] 3-5 steps with a railing?: A little [facility] 6-Clicks Mobility Assessment Total : [...] DISCHARGE SUMMARY PATIENT DATA Patient Name Bev Bobby Session Date 11/09/2024 OT Discharge Recommendations Home with assistance Equipment Recommendations Patient owns appropriate equipment HISTORY Bev Bobby is 64 y.o. male admitted 11/05/2024 for [...] Mobility Ambulatory- community (was utilizing scooter at [employer] since discharge) Mobility Noble Independent gait with device History of Falls [...] distal to knee) BED MOBILITY Level of Noble Physical/Non-physical Assist Adaptive Equipment Utilized Scooting/ Bridging Modified independence Supine to Sit Modified Noble TRANSFERS Level of Noble Physical/Non-physical Assist Adaptive Equipment Utilized Sit to Stand Modified independence Rollator Stand to sit Modified independence Rollator Toilet Transfer Modified independence Grab bar FUNCTIONAL MOBILITY Ambulation Modified independent 200ft x2 with seated rest break between bouts; RPE 5-7/10. Cues forsafety with rollator brakes. Rollator Comments BALANCE Postural Appearance Posture: Within Functional Limits Level of Noble Balance Support Static Sit Independent Feet supported Dynamic Sit Independent Feet supported Static Stand Independent Right upper extremity support, Left upper extremity support (via rollator) Dynamic Stand Independent Right upper extremity support, Left upper extremity support (via rollator) STANDARDIZED ASSESSMENTS [facility] 6-Click Daily Activities Help from Other: Don/Doff Regular Lower Body Clothings: None Help From Other: Bathing: None Help From Other: Toileting: None Help From Other: Don/Doff Upper Body Clothings: None Help From Other: Grooming: None Help From Other: Eating Meals: None [facility] 6 Click - Daily Activities [...] needed areas of treatment space. Level of Noble Interventions Grooming Modified independent Standing sinkside Pt [...] (IS): self-administered instruction provided, follow-up Taken 11/09/2024 Safety Promotion/Fall Prevention: activity supervised assistive device/personal [...] Ongoing, Progressing Intervention: Prevent Infection Flowsheets (Taken 11/08/2024 134) Infection Prevention: hand hygiene promoted personal protective [...] Note Bev Bobby 64 y.o. male CSN: [id number] Admission: 11/05/2024 9:45 PM Primary Problem: Wound infection SW went to bedside to discuss placement options for modified OPAT. Per patient, ID stated he would be able to dc home with a PICC and home antibiotics. SW relayed message to team. Wound vac order sent to [place] at for potential Monday discharge if patient does go home. SW will continue to follow and assist as needed. Mariia Macedo PRODUCTION REPRODUCTION MANAGER * Progress Notes - Bianca Knight PharmD - 11/08/2024 11:15 AM EDT Pharmacokinetic Consult - Therapeutic Drug Monitoring HPI and Hospital Course: Bev Bobby is a 64 y.o. male [...] to follow, Submitted by: Bianca Knight, PharmD, [facility] 11/08/2024 11:15 AM * Progress Notes - Melecio Echevarria DO - 11/08/2024 7:18 AM EDT Images from the original note were not included. [facility] Department of Surgery Division of Vascular Surgery Surgery Progress Note 11/08/24 Bev Bobby Subjective Subjective: HPI 64yoM PMHx COPD, T2DM, HLD, HTN, RLS, CAD s/p PCI (on Xarelto) s/p pacemaker c/b left SANDIP pseudoaneurysm s/p thrombin injection 09/21/24, CLI s/p left femoral endarterectomy with EIA/CONCIERGE stenting 10/17/24, [place] [facility] [...] completed 10/19 Pseudoaneurysm of left femoral artery ([facility]) COPD (chronic obstructive pulmonary disease) ([facility]) Overview Signed 10/18/2021 7:30 PM by Gallo Gallardo MD Not on home inhalers A-fib ([facility]) Overview Addendum 10/19/2021 10:39 AM by Giovanna Junior APRN Hold anticoagulation Metoprolol restarted BPH (benign prostatic hyperplasia) Overview Addendum 10/19/2021 10:41 AM by Giovanna Junior APRN Flomax restarted Subarachnoid hemorrhage ([facility]) Overview Addendum 10/20/2021 8:23 AM by Giovanna Junior APRN Left frontal, right occipital NSGY consulted - Repeat CTH showing slight worsening of tSAH - no need for further imaging, will continue to follow clinically 10/20: spoke with NSGY via phone and stated to hold ASA and Xarelto for 2 weeks Closed compression fracture of L3 lumbar vertebra, initial encounter ([facility]) Overview Signed 10/18/2021 7:35 PM by [...] Overview Signed 10/19/2021 10:50 AM by Giovanna Juniro APRN stable neuro exam Tetrahydrocannabinol (THC) use [...] 09/21/24, CLI s/p left femoral endarterectomy with EIA/CONCIERGE stenting 10/17/24, [facility] [place] [facility] [...] the findings. Cardiac Device Check - PRE-OR [facility] EP-Device Clinic: Pre-operative CIED Report Assessment and Sara-Procedural Reommendations: Name: Bev Bobby Date: 10/17/2024 : 1960 Age: 64 y.o. 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 Lead integrity test [...] Component Value Units Date/Time Fungal Culture, Routine [[id number]] Collected: 11/06/24 112 Order Status: Completed Specimen: Swab from Other (specify site) Updated: 11/08/24 0919 Culture No Fungal Growth <1 Week Fungal Culture, Routine [[id number]] Collected: 11/06/24 112 Order Status: Completed Specimen: Swab from Other (specify site) Updated: 11/08/24 09 Culture No Fungal Growth <1 Week Fungal Culture, Tissue and ISIDRO [[id number]] Collected: 11/06/24 1134 Order Status: Completed Specimen: Tissue from Other (specify site) Updated: 08/15/25 0912 Culture Reading Mycological 4 Weeks No Fungal Growth <1 Week ISIDRO No fungal elements seen Blood Culture (Aerobic/Anaerobet Set) [[id number]] Collected: 11/06/24106 Order Status: Completed Specimen: Blood from AC, Left Updated: 11/08/24 0302 Culture No growth at day 2 Blood Culture (Aerobic/Anaerobet Set) [[id number]] Collected: 11/06/24106 Order Status: Completed Specimen: Blood from Hand, Right Updated: 11/08/24 0302 Culture No growth at day 2 Tissue Culture and Gram Stain [[id number]] (Abnormal) Collected: 11/06/24 113 Order Status: Completed [...] in pairs Routine Culture and Gram Stain [[id number]] (Abnormal) Collected: 11/06/24 112 Order Status: Completed Specimen: Swab from Other (specify site) Updated: 11/07/24 1426 Culture Moderate Growth Enterobacter cloacae complex Comment: This isolate has been identified using the FDA Approved [employer] [place] System The organism value for this result has been updated. These results have been appended to the previously preliminary verified report. Gram Stain Result No polymorphonuclear leukocytes seen No organisms seen AFB Culture, Non Respiratory Source and Acid Fast Stain [[id number]] Collected: 11/06/24 113 Order Status: Completed Specimen: Tissue from Other (specify site) Updated: 11/07/24 1404 Acid Fast Stain No acid fast bacilli seen Routine Culture and Gram Stain [[id number]] Collected: 11/06/241127 Order Status: Completed Specimen: Swab from Other (specify site) Updated: 11/07/24 0855 Culture No growth at day 1 Gram Stain Result No organisms seen No polymorphonuclear leukocytes seen Anaerobic Culture [[id number]] Collected: 11/06/241127 Order Status: Sent Specimen: Swab from Other (specify site) Updated: 11/06/24 1220 Abscess Culture and Gram Stain [[id number]] Collected: 11/06/241127 Order Status: Canceled Specimen: Swab from Other (specify site) Updated: 11/06/24 1220 Anaerobic Culture [[id number]] Collected: 11/06/24 1129 Order Status: Sent Specimen: Swab from Other (specify site) Updated: 11/06/24 121 Abscess Culture and Gram Stain [[id number]] Collected: 11/06/24 112 Order Status: Canceled Specimen: Swab from Other (specify site) Updated: 11/06/24 121 Anaerobic Culture [[id number]] Collected: 11/06/24 1134 Order Status: Sent Specimen: Tissue from Other (specify site) Updated: 11/06/24 121 Micro: BC x2 11/06: no growth at day 2 Wound culture 11/06: Enterobacter cloacae complex Antibiotics: Cefepime: 11/07 - P Metronidazole: 11/07 - P Vancomycin: 11/05 - P Zosyn: 11/05 - 11/07 Cefazolin: 11/06 Assessment: Patient Summary: Bev Bobby is a 64 y.o. male with [...] OSH. On 11/06, pt went to the [facility] vascular surgery for left groin exploration and [...] the time spent on the encounter was [id number] providing direct patient care, counseling for the patient/caregiver, and care coordination. [1] Current Facility-Administered Medications Medication Dose Route Frequency Provider Last Rate Last Admin acetaminophen (Tylenol) tablet 1,000 mg 1,000 mg Oral q6h [facility] Anthony Reyes MD 1,000 mg at 11/08/24 0520 aspirin chewable tablet 81 mg 81 mg Oral Daily Reid Daniels MD 81 mg at 11/08/24 0837 cefepime (Maxipime) 2 g in sodium chloride 0.9% 100 mL IVPB (vial adapter required) 2 g [id number] Reid Daniels MD 36.7 mL/hr at 11/08/24 [...] EDT OPAT Enrollment Progress Note Patient: Bev Bobby : 1960 Referring ID Team: General ID [...] ) to provide care. Patient Name: Bev Bobby Primary ID Diagnosis: Surgical Site Infection vascular infection Referring ID Provider: Dr. Appiah IV Antimicrobial Therapy Plan: See OPAT MD intake note for final recommendations IV Access: pending Patient Specific Outpatient Circumstances: [address] [place], [place] [address] Contact information Bev Bobby [phone] (home) Extended Emergency Contact Information Primary Emergency Contact: Patti Hill [place] Relation: Sister Street Light Servicer Supervisor needed? No Outpatient services (including home infusion, home health, facility referral: See recent case management/social work note for finalization of [...] via secure chat or staff messaging in [employer]. OPAT Modified program for IV antimicrobial therapy [...] Maintain Seizure Symptom Control Flowsheets (Taken 11/07/2024 152) Medication Review/Management: medications reviewed Problem: Fall Injury Risk Goal: Absence of Fall and Fall-Related Injury Outcome: Ongoing, Progressing Intervention: Identify and Manage Contributors Flowsheets (Taken 11/07/2024 152) Medication Review/Management: medications reviewed Intervention: Promote Injury-Free [...] Note Bev Bobby 64 y.o. male CSN: [id number] Admission: 11/05/2024 9:45 PM Primary Problem: Wound infection Hybrid Derivatives Trader reviewed chart and spoke with patient to complete this Initial Case Management Assessment. PCP: Asad Victor MD (Inactive) Dr. Palomo in [facility] Emergency Contact: Extended Emergency Contact Information Primary Emergency Contact: Patti Hill Relation: Sister [address] Light Servicer Supervisor needed? No Insurance: Primary Visit Coverage Payer Plan Sponsor Code Group Number Group Name [facility] MEDICARE [facility] MEDICARE REPLACEMENT [id number] Primary Visit Coverage Subscriber Subscriber ID Subscriber Name Subscriber [facility] Subscriber Address [id number] BEV BOBBY [id number] [place] [phone] Secondary Visit Coverage Payer Plan Sponsor Code Group Number Group Name [facility] Secondary Visit Coverage Subscriber Subscriber ID Subscriber Name Subscriber [facility] Subscriber Address [id number] BEV BOBBY [id number] [place] [id number] Patient information: Primary Caregiver: Self Support System: Immediate family Daily Living Activities: Functional Status: Independent Living Arrangements: Alone Type of Residence: Private residence, Single Level [address] [facility] [address] Current DME: Equipment Currently Used at Home: walker, rollator Income Information: Income Source: Disabled Income/Expense Information: Income meets expenses Current Resources Utilized: Food [place] Housing Circumstances-Z Codes: Housing Circumstances (select all [...] Dialysis Services: None Living Will/Advance Directive/Power of Estate Manager /Guardian: Have you reviewed your Advance Directive and is it valid for this stay?: No Advance Directive: Not applicable Information Provided on Healthcare Directives: No Pre-existing DNR/DNI Order: No Patient Requests Assistance: No Additional Comments: Patient is not medically ready for discharge. Patient uses [employer] for transportation and will need assistance with discharge transport. SW will continue to follow. Mariia Macedo PRODUCTION REPRODUCTION MANAGER * Progress Notes - Melecio Echevarria DO - 11/07/2024 9:24 AM EDT Images from the original note were not included. [facility] Department of Surgery Division of Vascular Surgery Surgery Progress Note 11/07/24 Bev Bobby Subjective Subjective: HPI 64yoM PMHx COPD, T2DM, HLD, HTN, RLS, CAD s/p PCI (on Xarelto) s/p pacemaker c/b left SANDIP pseudoaneurysm s/p thrombin injection 09/21/24, CLI s/p left femoral endarterectomy with EIA/CONCIERGE stenting 10/17/24, who [place] [facility] [...] 11/06/24 0659 11/06/24 07 - 11/06/24 18511/06/24 190 - 11/07/24 0659 11/07/24 0700 - 11/07/24 0925 Patient has no LDAs [...] MD Home meds Hold blood thinners Diabetes ([facility]) Overview Addendum 10/19/2021 10:41 AM [...] completed 10/19 Pseudoaneurysm of left femoral artery ([facility]) COPD (chronic obstructive pulmonary disease) (CMS/HCC) Overview Signed 10/18/2021 7:30 PM by Gallo Gallardo MD Not on home inhalers A-fib (CMS/HCC) Overview Addendum 10/19/2021 10:39 AM by Giovanna Junior APRN Hold anticoagulation Metoprolol restarted BPH (benign prostatic hyperplasia) Overview Addendum 10/19/2021 10:41 AM by Giovanna Junior APRN Flomax restarted Subarachnoid hemorrhage (CMS/HCC) Overview Addendum 10/20/2021 8:23 AM by Giovanna Junior APRN Left frontal, right occipital NSGY consulted - Repeat CTH showing slight worsening of tSAH - no need for further imaging, will continue to follow clinically 10/20: spoke with NSGY via phone and stated to hold ASA and Xarelto for 2 weeks Closed compression fracture of L3 lumbar vertebra, initial encounter (CMS/HCC) Overview Signed 10/18/2021 7:35 PM by Gallo [...] Overview Signed 10/18/2021 7:37 PM by Gallo Gallarod MD 45% stenosis, no intervention required Tenderness [...] 09/21/24, CLI s/p left femoral endarterectomy with EIA/CONCIERGE stenting 10/17/24, who [facility] [place] [facility] [...] Ongoing, Progressing * Significant Event - Melecio Echevarria, DO - 11/06/2024 7:23 PM EDT Images from the original note were not included. [facility] Department of Surgery Division of [...] ?? D.Bili ?? Assessment and Plan: Bev Bobby is a 64 y.o. male who is [...] nursing staff. I have notified senior resident/attending irrigation equipment installer with any issues or concerns. Melecio Echevarria [...] - 11/06/2024 12:53 PM EDT Patient: Bev Bobby Patient is s/p Procedure(s) and Anesthesia Type: [...] Agree with above assessment and evaluation from resident/FIGURE REFINISHER AND REPAIRER. * Consults - Oscar Appiah MD - 11/06/2024 12:51 PM EDTAssociated Order(s): Inpatient consult to Infectious Diseases Inpatient consult to Infectious Diseases Consult performed by: Dotty Sethi MD Consult ordered by: Nathaly Nowak MD GENERAL INFECTIOUS DISEASE INPATIENT CONSULT NOTE Reason for Consult: left groin wound, abx recommendations Attending: Nathaly Nowak MD Date of admission: 11/05/2024 History of Present Illness: Bev Bobby is a 64 y.o. male with history [...] the findings. Cardiac Device Check - PRE-[facility] EP-Device Clinic: Pre-operative CIED Report Assessment and Sara-Procedural Reommendations: Name: Bev Bobby Date: 10/17/2024 : 1960 Age: 64 y.o. Patient has a Food Court Team Member: [employer] SYSTEM[employer] PLANNER-PM Remaining battery longevity adequate. Lead integrity test [...] Procedure Component Value Units Date/Time Anaerobic Culture [[id number]] Collected: 11/06/241127 Order Status: Sent Specimen: Swab from Other (specify site) Updated: 11/06/241219 Fungal Culture, Routine [[id number]] Collected: 11/06/241127 Order Status: Sent Specimen: Swab from Other (specify site) Updated: 11/06/241219 Routine Culture and Gram Stain [[id number]] Collected: 11/06/241127 Order Status: Sent Specimen: Swab from Other (specify site) Updated: 11/06/241219 Abscess Culture and Gram Stain [[id number]] Collected: 11/06/241127 Order Status: Canceled Specimen: Swab from Other (specify site) Updated: 11/06/24 1220 Anaerobic Culture [[id number]] Collected: 11/06/241128 Order Status: Sent Specimen: Swab from Other (specify site) Updated: 11/06/241218 Fungal Culture, Routine [[id number]] Collected: 11/06/241128 Order Status: Sent Specimen: Swab from Other (specify site) Updated: 11/06/241218 Routine Culture and Gram Stain [[id number]] Collected: 11/06/241128 Order Status: Sent Specimen: Swab from Other (specify site) Updated: 11/06/241218 Abscess Culture and Gram Stain [[id number]] Collected: 11/06/241128 Order Status: Canceled Specimen: Swab from Other (specify site) Updated: 11/06/241218 Anaerobic Culture [[id number]] Collected: 11/06/241133 Order Status: Sent Specimen: Tissue from Other (specify site) Updated: 11/06/241217 Tissue Culture and Gram Stain [[id number]] Collected: 11/06/241133 Order Status: Sent Specimen: Tissue from Other (specify site) Updated: 11/06/241217 AFB Culture, Non Respiratory Source and Acid Fast Stain [[id number]] Collected: 11/06/241133 Order Status: Sent Specimen: Tissue from Other (specify site) Updated: 11/06/241217 Fungal Culture, Tissue and ISIDRO [[id number]] Collected: 11/06/241133 Order Status: Sent Specimen: Tissue from Other (specify site) Updated: 11/06/241217 Blood Culture (Aerobic/Anaerobet Set) [[id number]] Collected: 11/06/24106 Order Status: Completed Specimen: Blood from AC, Left Updated: 11/06/24402 Culture Culture in lab Blood Culture (Aerobic/Anaerobet Set) [[id number]] Collected: 11/06/24106 Order Status: Completed Specimen: Blood from Hand, Right Updated: 11/06/24402 Culture Culture in lab Micro: BC 11/06: pending Wound culture 11/06: pending Antibiotics: Zosyn: 11/05 -P Vancomycin: 11/05 - P Cefazolin: 11/06 Assessment: Patient Summary: Bev Bobby is a 64 y.o. male with [...] OSH. On 11/06, pt went to the [facility] vascular surgery for left groin exploration and [...] the time spent on the encounter was [id number] providing direct patient care, counseling for the patient/caregiver, and care coordination. [1] Past Medical History: Diagnosis Date Arthritis Old myocardial infarction History of myocardial infarction [2] Past Surgical History: Procedure Laterality Date ANKLE SURGERY Right CARDIAC PACEMAKER PLACEMENT CAROTID ENDARTERECTOMY N/A 2017 Endarterectomy Carotid Artery from [employer] CORONARY ANGIOPLASTY Left Coronary Angiography With Concomitant Left Heart Catheterization from [employer] CORONARY ARTERY BYPASS GRAFT N/A 2018 3V ELBOW SURGERY Right ENDARTERECTOMY Left 10/17/2024 common/SFA/Pro[facility] thromboendarterectomy, EIA/CONCIERGE stent HERNIA REPAIR KNEE ARTHROSCOPY Left VASCULAR SURGERY Left 09/21/2024 CONCIERGE pseudoaneurym injection [3] Family History Problem Relation [...] 1,000 mg 1,000 mg Oral q6h [facility] Anthony Reyes MD 1,000 mg [...] BID Anthony Reyes MD 2 mg at 11/06/24137 [Transfer Hold] sodium chloride 0.9 % flush [...] Note Bev Bobby 64 y.o. male CSN: [id number] Admission: 11/05/2024 9:45 PM Primary Problem: Wound infection Patient in OR today. SW will continue to follow. Mariia Macedo PRODUCTION REPRODUCTION MANAGER * Op Note - Jerry Holcomb MD - 11/06/2024 11:23 AM EDT Operative Note Date: 11/06/24 Location: [facility] OR Name: Bev Bobby, : 1960, Diagnoses: Pre-op Diagnosis Surgical wound infection Post-op Diagnosis Surgical wound infection Procedure(s): Excisional debridement left groin (skin, subcutaneous tissue. Final measurements 10 x 7 x 6.5 cm) Excisional debridement left thigh (skin, subcutaneous tissue. Final measurements 8 x 2 x 3 cm) Attending Surgeon(s): * Nathaly Nowak - Primary Boiler House Supervisor(s): * Luna Beckett MD - Resident [...] layer closed over patched artery. Indications: Bev Bobby is an 64 y.o. [...] 9:41 AM EDT Associated attestation - Nathaly Nwoak MD - 11/06/2024 9:41 AM EDT I saw and evaluated the patient with the resident/fellow. I discussed the case with the resident/fellow and agree with the findings and plan as documented. * Progress Notes - Jorge Alberto Palomo, PharmD - 11/06/2024 1:48 AM EDT Pharmacokinetic Consult - Therapeutic Drug Monitoring HPI and Hospital Course: Bev Bobby is a 64 y.o. male [...] Present Illness: Chief Complaint: Wound infection Bev Bobby is a 64 y.o. male with PMHx significant for COPD, CAD s/p PCI (on Xarelto) s/p pacemaker c/b left SANDIP pseudoaneurysm s/p thrombin injection 09/21/24, chronic limb ischemia s/p leftfemoral endarterectomy with external iliac/common femoral artery stenting 10/17/24, T2DM, HLD, HTN, RLS who presented to the [facility] on 11/05/2024 with problems with his [...] capsule Take 1 capsule by mouth daily. Provider, MD Darby insulin glargine (Lantus) 100 UNIT/ML injection Inject 28 Units under the skin nightly. Provider, MD Darby insulin lispro protamine-insulin lispro (HumaLOG Mix 75-25) [...] radiologist interpretation. Assessment/Plan Assessment & Plan: Bev Bobby is a 64 y.o. male with [...] once verified. Plan: - Admit to [facility] 2 - NPO, mIVF - [...] ENDARTERECTOMY N/A 2016 Endarterectomy Carotid Artery from [employer] CORONARY ANGIOPLASTY Left Coronary Angiography With Concomitant Left Heart Catheterization from [employer] CORONARY ARTERY BYPASS GRAFT N/A 2018 3V ELBOW SURGERY Right ENDARTERECTOMY Left 10/17/2024 common/SFA/Profunda thromboendarterectomy, EIA/CONCIERGE stent HERNIA REPAIR KNEE ARTHROSCOPY Left VASCULAR SURGERY Left 09/21/2024 CONCIERGE pseudoaneurym injection [4] Family History Problem Relation [...] grams of glucose Sublingual q15 min PRN Anhtony Reyes MD Or dextrose 10 % (D10W) [...] Anthony Reyes MD 2 Units at 11/06/24 014 lactated Ringer's infusion 84 mL/hr Intravenous Continuous Anthony Reyes MD 84 mL/hr at 11/06/24 0140 84 mL/hr at 11/06/24 014 methocarbamol (Robaxin) tablet 500 mg 500 mg Oral 4x daily Anthony Reyes MD 500 mg at 11/06/24 013 metoprolol tartrate (Lopressor) tablet 100 mg 100 mg Oral BID Anthony Reyes MD 100 mg at 11/06/24 013 ondansetron ODT (Zofran-ODT) disintegrating tablet 4 mg [...] documented. * ED Provider Notes - Ciro Oquendo MD - 11/05/2024 9:36 PM EDT Images [...] baseline. Psychiatric: Mood and Affect: Mood normal. [place] Coma Scale Score: 15 ED Course & [...] Oximetry Until discontinued Acknowledged ANTHONY REYES 11/06/24 0036 CBC Once Final result ANTHONY REYES 11/06/24 0036 Magnesium Once Final result ANTHONY REYES 11/06/24 0036 Phosphorus Once Final result ANTHONY REYES 11/06/24 003 Basic metabolic panel Once Final result ANTHONY REYES 11/06/24 0036 Sequential compression device Until discontinued Comments: SCDs must be in place and turned on EXCEPT when ACTIVELY ambulating. Acknowledged ANTHONY REYES 11/06/24 003 Do Not Give Nicotine Replacement Until discontinued Acknowledged ANTHONY REYES 11/06/24 003 Full code Continuous Acknowledged ANTHONY REYES 11/06/24 003 Mobility Orders Until discontinued Acknowledged ANTHONY REYES 11/06/2435 Notify Provider Until discontinued Acknowledged ANTHONY REYES 11/06/24 003 Vital Signs Per unit protocol Acknowledged ANTHONY REYES 11/06/2435 Intake and Output Per unit protocol Acknowledged ANTHONY REYES 11/06/24 003 Insert peripheral IV Once Placed in And Linked Group Acknowledged ANTHONY REYES 11/06/24 003 Saline lock IV Once Placed in And Linked Group Acknowledged ANTHONY REYES 11/06/2435 Admit to inpatient Once Acknowledged ANTHONY REYES 11/05/24 3458 Consult to Vascular Surgery - Surg Red Once Specialty: Vascular Surgery Provider: (Not yet assigned) Completed CIRO OQUENDO ED Course as of 11/06/24 0613 MonNov 05, 2024 2311 On initial evaluation, patient is hemodynamically stable. Patient has history of traumatic left lower extremity CONCIERGE pseudoaneurysm s/p repair on 10/17 with Vascular [...] [TV] ED Course User Index [TV] Ciro Oquendo MD Clinical Impressions as of 11/06/24612 Surgical [...] None Disposition Admit Admitting/Attending Physician: NATHALY NOWAK [[id number]] Provider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 [facility] Comment:Accuracy of a glucos e result [...] for testing. Comment 11/10/2024 8:04 AM EDT [facility] Manager Warehouse ID Esperanza Parks 11/10/2024 8:04 AM EDT [facility] Device ID [id number] 11/10/2024 8:04 AM EDT [facility] Specimen Type POC Capillary 11/10/2024 8:04 AM EDT [facility] Blood Capillary blood specimen / Unknown 11/10/2024 8:03 AM EDT 11/10/2024 8:04 AM EDT us Nathaly Nowak MD LAB POINT OF CARE TE ST DOCKED DEVICE UNSOLICITED RESULTS Final Result Performing Organization Address City/[facility] Co de Phone Number [facility] [address] [place] [address] * Vancomycin, Trough, Plasma Please draw ~30 minutes prior to dose due at 0800 on 11/10. Please do NOThold dose awaiting level to return. Consider obtaining level via peripheral stick. If peripheral stick is not feasible, please ensure that line is... (11/10/2024 7:27 AM EDT) Vancomycin, Trough, Plasma 16.2 10.0 - 20.0 ug/mL 11/10/2024 8:24 AM EDT [facility] Blood Venous blood specimen / Unknown Venipuncture / Unknown 11/10/2024 7:27 AM EDT 11/10/2024 7:51 AM EDT Narrative [facility] - 11/10/2024 8:24 AM EDT Therapeutic Trough level: 10-20ug/mL Supra-therapeutic Trough level: >20 ug/mL us Abigail Seay MD LAB BLOOD ORDERABLES Final Res ult [facility] [address] [place] [address] * (ABNORMAL) CBC and Differential (11/10/2024 12:31 AM EDT) WBC Count 10.80(H) 3.70 - 10.30 10*3/uL LAB HEMATOLOGY METHOD 11/10/2024 12:53 AM EDT [facility] RBC Count 3.06(L) 4.60 - 6.10 10*6/uL LAB HEMATOLOGY METHOD 11/10/2024 12:53 AM EDT [facility] HGB 9.1(L) 13.7 - 17.5 g/dL LAB HEMATOLOGY METHOD 11/10/2024 12:53 AM EDT [facility] HCT 28.0(L) 40.0 - 51.0 % LAB HEMATOLOGY METHOD 11/10/2024 12:53 AM EDT [facility] Platelet Count 501(H) 155 - 369 10*3/uL LAB HEMATOLOGY METHOD 11/10/2024 12:53 AM EDT [facility] MCV 92 79 - 98 fL LAB HEMATOLOGY METHOD 11/10/2024 12:53 AM EDT [facility] MCH 29.7 26.0 - 32.0 pg LAB HEMATOLOGY METHOD 11/10/2024 12:53 AM EDT [facility] MCHC 32.5 30.7 - 35.5 g/dL LAB HEMATOLOGY METHOD 11/10/2024 12:53 AM EDT [facility] RDW 13.2 11.5 - 14.5 % LAB HEMATOLOGY METHOD 11/10/2024 12:53 AM EDT [facility] MPV 8.8 8.8 - 12.5 fL LAB HEMATOLOGY METHOD 11/10/2024 12:53 AM EDT [facility] nRBC 0.0 <=0.0 per 100 WBCs LAB HEMATOLOGY METHOD 11/10/2024 12:53 AM EDT [facility] Differential Type Automated LAB HEMATOLOGY METHOD 11/10/2024 12:53 AM EDT [facility] Neutrophils % 77 % LAB HEMATOLOGY METHOD 11/10/2024 12:53 AM EDT [facility] Lymphocytes % 13 % LAB HEMATOLOGY METHOD 11/10/2024 12:53 AM EDT [facility] Monocytes % 8 % LAB HEMATOLOGY METHOD 11/10/2024 12:53 AM EDT [facility] Eosinophils % 1 % LAB HEMATOLOGY METHOD 11/10/2024 12:53 AM EDT [facility] Basophils % 0 % LAB HEMATOLOGY METHOD 11/10/2024 12:53 AM EDT [facility] Immature Granulocytes % 1 % LAB HEMATOLOGY METHOD 11/10/2024 12:53 AM EDT [facility] Neutrophils Absolute 8.32(H) 1.60 - 6.10 10*3/uL LAB HEMATOLOGY METHOD 11/10/2024 12:53 AM EDT [facility] Lymphocytes Absolute 1.40 1.20 - 3.90 10*3/uL LAB HEMATOLOGY METHOD 11/10/2024 12:53 AM EDT [facility] Monocytes Absolute 0.89 0.30 - 0.90 10*3/uL LAB HEMATOLOGY METHOD 11/10/2024 12:53 AM EDT [facility] Eosinophils Absolute 0.09 0.00 - 0.50 10*3/uL LAB HEMATOLOGY METHOD 11/10/2024 12:53 AM EDT [facility] Basophils Absolute 0.04 0.00 - 0.10 10*3/uL LAB HEMATOLOGY METHOD 11/10/2024 12:53 AM EDT [facility] Immature Granulocytes Absolute 0.06 0.00 - 0.06 10*3/uL LAB HEMATOLOGY METHOD 11/10/2024 12:53 AM EDT [facility] Blood Venous blood specimen / Unknown Venipuncture / Unknown 11/10/2024 12:31 AM EDT 11/10/2024 12:37 AM EDT [facility] 11/10/2024 12:53 AM EDT Therapeutic decision making should be based on absolute values, rather than percentages. us Nathaly Nowak MD LAB BLOOD ORDERABLES Final Resu lt [facility] [address] [place] [address] * (ABNORMAL) Comprehensive Metabolic Panel, Plasma (11/10/2024 12:31 AM EDT) Glucose, Plasma 185(H) 74 - 99 mg/dL 11/10/2024 1:05 AM EDT [facility] BUN, Plasma 9 8 - 23 mg/dL 11/10/2024 1:05 AM EDT [facility] Creatinine, Plasma 0.72 0.70 - 1.20 mg/dL 11/10/2024 1:05 AM EDT [facility] BUN/Creatinine Ratio 13 11/10/2024 1:05 AM EDT [facility] Sodium, Plasma 135(L) 136 - 145 mmol/L 11/10/2024 1:05 AM EDT [facility] Potassium, Plasma 4.0 3.6 - 4.9 mmol/L 11/10/2024 1:05 AM EDT [facility] Chloride, Plasma 106 97 - 107 mmol/L 11/10/2024 1:05 AM EDT [facility] CO2, Plasma 19(L) 22 - 29 mmol/L 11/10/2024 1:05 AM EDT [facility] Anion Gap 10 6 - 16 mmol/L 11/10/2024 1:05 AM EDT [facility] Total Calcium, Plasma 7.8(L) 8.9 - 10.2 mg/dL 11/10/2024 1:05 AM EDT [facility] Total Protein 5.6(L) 6.3 - 7.9 g/dL 11/10/2024 1:05 AM EDT [facility] Albumin, Plasma 3.1(L) 3.5 - 5.2 g/dL 11/10/2024 1:05 AM EDT [facility] AST, Plasma 33 10 - 50 U/L 11/10/2024 1:05 AM EDT [facility] ALT, Plasma 25 10 - 50 U/L 11/10/2024 1:05 AM EDT [facility] Alkaline Phosphatase, Plasma 108 40 - 115 U/L 11/10/2024 1:05 AM EDT [facility] Total Bilirubin, Plasma <0.2(L) 0.2 - 1.1 mg/dL 11/10/2024 1:05 AM EDT [facility] eGFRcr 101.4 mL/min/1.7 3m*2 11/10/2024 1:05 AM EDT [facility] Comment:Reported eGFRcr in m L/min/1.73m2 is based the CKD-EPI 2020 equation that does not use a race coefficient. Blood Venous blood specimen / Unknown Venipuncture / Unknown 11/10/2024 12:31 AM EDT 11/10/2024 12:37 AM EDT us Nathaly Nowak MD LAB BLOOD ORDERABLES Final Resu lt [facility] [address] [place] [address] * (ABNORMAL) POCT glucose meter (11/09/2024 8:04 [...] 11/09/2024 8:06 PM EDT HEALTHCARE LAB Manager Warehouse ID Maximiliano Hansen II 11/09/2024 8:06 PM EDT HEALTHCARE LAB Device ID [id number] 11/09/2024 8:06 PM EDT [facility]ALTH[facility]ARE LAB Specimen Type POC Capillary 11/09/2024 8:06 PM EDT [facility] LAB Blood Capillary blood specimen / Unknown 11/09/2024 8:04 PM EDT 11/09/2024 8:06 PM EDT Nathaly Nowak MD LAB POINT OF CARE TE ST DOCKED DEVICE UNSOLICITED RESULTS Final Result Performing Organization Address City/[facility] Co de Phone Number [facility]ARE [facility] [address] [place] [address] * (ABNORMAL) POCT glucose meter (11/09/2024 4:36 [...] 11/09/2024 4:38 PM EDT HEALTHCARE LAB Manager Warehouse ID Kristian Sosa 11/09/2024 4:38 PM EDT HEALTHCARE LAB Device ID [id number] 11/09/2024 4:38 PM EDT HEALTH[facility]ARE LAB Specimen Type POC Capillary 11/09/2024 4:38 PM EDT [facility]ARE LAB Blood Capillary blood specimen / Unknown 11/09/2024 4:36 PM EDT 11/09/2024 4:38 PM EDT Nathaly Nowak MD LAB POINT OF CARE TE ST DOCKED DEVICE UNSOLICITED RESULTS Final Result Performing Organization Address City/[facility] Co de Phone Number [facility] [address] [place] [address] * PICC SINGLE LUMEN (SMARTFORM LINK) (11/09/2024 1:11 PM EDT) Narrative Estefani Barraza RN - 11/09/2024 1:11 PM EDT Estefani Barraza RN 11/09/2024 1:12 PM Insert PICC line Date/Time: 11/09/2024 1:11 PM Performed by: Estefani Barraza RN Authorized by: Nathaly Nowak MD [place] Protocol: Verbal consent obtained?: Yes Written consent [...] selection rationale: Left pacemaker Catheter Lot #: [id number] Catheter manager of quality: Debteye Catheter placed: Single lumen Catheter size: 4 Fr Catheter trimmed length: 42 Catheter threaded length: 42 Vein placed in: SVC Catheter cm indwellin Catheter cm outside: 0 Placement confirmed by: Kanjoya 3CG technology Pre-procedure: Landmarks identified Ultrasound guidance: [...] glucose meter (11/09/2024 11:50 AM EDT) Pathologist [facility] POCT Glucose 127(H) 74 - 99 mg/dL 11/09/2024 11:51 AM EDT [facility] Comment:Accuracy of a glucos e result [...] testing. Comment 11/09/2024 11:51 AM EDT [facility] Manager Warehouse ID Kristian Sosa 11/09/2024 11:51 AM EDT HEALTHCARE LAB Device ID [id number] 11/09/2024 11:51 AM EDT HEALTHCARE LAB Specimen Type POC Capillary 11/09/2024 11:51 AM EDT HEALTHCARE LAB Blood Capillary blood specimen / Unknown 11/09/2024 11:50 AM EDT 11/09/2024 11:51 AM EDT Nathaly Nowak MD LAB POINT OF CARE TE ST DOCKED DEVICE UNSOLICITED RESULTS Final Result Performing Organization Address City/[facility]/ZIP Co de Phone Number [facility]ARE [facility] [address] [place] [address] * (ABNORMAL) POCT glucose meter (11/09/2024 8:14 AM EDT) [facility] POCT Glucose 153(H) 74 - 99 mg/dL [...] 11/09/2024 8:15 AM EDT HEALTHCARE LAB Manager Warehouse ID Kristian Sosa 11/09/2024 8:15 AM EDT HEALTHCARE LAB Device ID [id number] 11/09/2024 8:15 AM EDT HEALTHCARE LAB Specimen Type POC Capillary 11/09/2024 8:15 AM EDT [facility]ARE LAB Blood Capillary blood specimen / Unknown 11/09/2024 8:14 AM EDT 11/09/2024 8:15 AM EDT Nathaly Nowak MD LAB POINT OF CARE TE ST DOCKED DEVICE UNSOLICITED RESULTS Final Result Performing Organization Address City/[facility]/ZIP Co de Phone Number [facility] [address] [place] [address] * (ABNORMAL) CBC and Differential (11/09/2024 4:15 AM EDT) WBC Count 10.27 3.70 - 10.30 10*3/uL LAB HEMATOLOGY METHOD 11/09/2024 4:26 AM EDT [facility] RBC Count 3.14(L) 4.60 - 6.10 10*6/uL LAB HEMATOLOGY METHOD 11/09/2024 4:26 AM EDT [facility] HGB 9.2(L) 13.7 - 17.5 g/dL LAB HEMATOLOGY METHOD 11/09/2024 4:26 AM EDT [facility] HCT 28.3(L) 40.0 - 51.0 % LAB HEMATOLOGY METHOD 11/09/2024 4:26 AM EDT [facility] Platelet Count 468(H) 155 - 369 10*3/uL LAB HEMATOLOGY METHOD 11/09/2024 4:26 AM EDT [facility] MCV 90 79 - 98 fL LAB HEMATOLOGY METHOD 11/09/2024 4:26 AM EDT [facility] MCH 29.3 26.0 - 32.0 pg LAB HEMATOLOGY METHOD 11/09/2024 4:26 AM EDT [facility] MCHC 32.5 30.7 - 35.5 g/dL LAB HEMATOLOGY METHOD 11/09/2024 4:26 AM EDT [facility] RDW 13.1 11.5 - 14.5 % LAB HEMATOLOGY METHOD 11/09/2024 4:26 AM EDT [facility] MPV 8.7(L) 8.8 - 12.5 fL LAB HEMATOLOGY METHOD 11/09/2024 4:26 AM EDT [facility] nRBC 0.0 <=0.0 per 100 WBCs LAB HEMATOLOGY METHOD 11/09/2024 4:26 AM EDT [facility] Differential Type Automated LAB HEMATOLOGY METHOD 11/09/2024 4:26 AM EDT [facility] Neutrophils % 77 % LAB HEMATOLOGY METHOD 11/09/2024 4:26 AM EDT [facility] Lymphocytes % 13 % LAB HEMATOLOGY METHOD 11/09/2024 4:26 AM EDT [facility] Monocytes % 8 % LAB HEMATOLOGY METHOD 11/09/2024 4:26 AM EDT [facility] Eosinophils % 1 % LAB HEMATOLOGY METHOD 11/09/2024 4:26 AM EDT [facility] Basophils % 0 % LAB HEMATOLOGY METHOD 11/09/2024 4:26 AM EDT [facility] Immature Granulocytes % 1 % LAB HEMATOLOGY METHOD 11/09/2024 4:26 AM EDT [facility] Neutrophils Absolute 7.97(H) 1.60 - 6.10 10*3/uL LAB HEMATOLOGY METHOD 11/09/2024 4:26 AM EDT [facility] Lymphocytes Absolute 1.32 1.20 - 3.90 10*3/uL LAB HEMATOLOGY METHOD 11/09/2024 4:26 AM EDT [facility] Monocytes Absolute 0.83 0.30 - 0.90 10*3/uL LAB HEMATOLOGY METHOD 11/09/2024 4:26 AM EDT [facility] Eosinophils Absolute 0.07 0.00 - 0.50 10*3/uL LAB HEMATOLOGY METHOD 11/09/2024 4:26 AM EDT [facility] Basophils Absolute 0.03 0.00 - 0.10 10*3/uL LAB HEMATOLOGY METHOD 11/09/2024 4:26 AM EDT [facility] Immature Granulocytes Absolute 0.05 0.00 - 0.06 10*3/uL LAB HEMATOLOGY METHOD 11/09/2024 4:26 AM EDT [facility] Blood Venous blood specimen / Unknown Venipuncture / Unknown 11/09/2024 4:15 AM EDT 11/09/2024 4:18 AM EDT Narrative [facility] - 11/09/2024 4:26 AM EDT Therapeutic decision making should be based on absolute values, rather than percentages. us Nathaly Nowak MD LAB BLOOD ORDERABLES Final Resu lt [facility] [address] [place] [address] * (ABNORMAL) Comprehensive Metabolic Panel, Plasma (11/09/2024 4:15 AM EDT) Glucose, Plasma 171(H) 74 - 99 mg/dL 11/09/2024 4:47 AM EDT [facility] BUN, Plasma 9 8 - 23 mg/dL 11/09/2024 4:47 AM EDT [facility] Creatinine, Plasma 0.67(L) 0.70 - 1.20 mg/dL 11/09/2024 4:47 AM EDT [facility] BUN/Creatinine Ratio 13 11/09/2024 4:47 AM EDT [facility] Sodium, Plasma 134(L) 136 - 145 mmol/L 11/09/2024 4:47 AM EDT [facility] Potassium, Plasma 4.1 3.6 - 4.9 mmol/L 11/09/2024 4:47 AM EDT [facility] Chloride, Plasma 104 97 - 107 mmol/L 11/09/2024 4:47 AM EDT [facility] CO2, Plasma 21(L) 22 - 29 mmol/L 11/09/2024 4:47 AM EDT [facility] Anion Gap 9 6 - 16 mmol/L 11/09/2024 4:47 AM EDT [facility] Total Calcium, Plasma 8.4(L) 8.9 - 10.2 mg/dL 11/09/2024 4:47 AM EDT [facility] Total Protein 5.8(L) 6.3 - 7.9 g/dL 11/09/2024 4:47 AM EDT [facility] Albumin, Plasma 3.2(L) 3.5 - 5.2 g/dL 11/09/2024 4:47 AM EDT [facility] AST, Plasma 18 10 - 50 U/L 11/09/2024 4:47 AM EDT [facility] ALT, Plasma 17 10 - 50 U/L 11/09/2024 4:47 AM EDT [facility] Alkaline Phosphatase, Plasma 110 40 - 115 U/L 11/09/2024 4:47 AM EDT [facility] Total Bilirubin, Plasma <0.2(L) 0.2 - 1.1 mg/dL 11/09/2024 4:47 AM EDT [facility] eGFRcr 103.6 mL/min/1.7 3m*2 11/09/2024 4:47 AM EDT [facility] Comment:Reported eGFRcr in m L/min/1.73m2 is based the CKD-EPI 2020 equation that does not use a race coefficient. Blood Venous blood specimen / Unknown Venipuncture / Unknown 11/09/2024 4:15 AM EDT 11/09/2024 4:18 AM EDT Nathaly Nowak MD LAB BLOOD ORDERABLES Final Resu lt Performing Organization Address City/[facility]/ZIP Co de Phone Number [facility] [address] [place] [address] * (ABNORMAL) POCT glucose meter (11/09/2024 3:30 [...] 11/09/2024 3:31 AM EDT HEALTHCARE LAB Manager Warehouse ID Maximiliano Hansen II 11/09/2024 3:31 AM EDT HEALTHCARE LAB Device ID [id number] 11/09/2024 3:31 AM EDT [facility] Specimen Type POC Capillary 11/09/2024 3:31 AM EDT [facility] Blood Capillary blood specimen / Unknown 11/09/2024 3:30 AM EDT 11/09/2024 3:31 AM EDT Nathaly Nowak MD LAB POINT OF CARE TE ST DOCKED DEVICE UNSOLICITED RESULTS Final Result Performing Organization Address City/[facility]/ZIP Co de Phone Number [facility] [address] [place] [address] * (ABNORMAL) POCT glucose meter (11/08/2024 7:21 PM EDT) Pathologist [facility] POCT Glucose 292(H) 74 - 99 mg/dL [...] 11/08/2024 7:22 PM EDT HEALTHCARE LAB Manager Warehouse ID Maximiliano Hansen II 11/08/2024 7:22 PM EDT HEALTH[facility]ARE LAB Device ID [id number] 11/08/2024 7:22 PM EDT [facility] LAB Specimen Type POC Capillary 11/08/2024 7:22 PM EDT [facility] Blood Capillary blood specimen / Unknown 11/08/2024 7:21 PM EDT 11/08/2024 7:22 PM EDT Nathaly Nowak MD LAB POINT OF CARE TE ST DOCKED DEVICE UNSOLICITED RESULTS Final Result Performing Organization Address City/State/[facility] Co de Phone Number [facility]ARE LAB [address] [place] [address] * (ABNORMAL) POCT glucose meter (11/08/2024 5:12 PM EDT) [facility] POCT Glucose 178(H) 74 - 99 mg/dL [...] 11/08/2024 5:14 PM EDT HEALTHCARE LAB Manager Warehouse ID Estefani Sheth 11/08/2024 5:14 PM EDT HEALTHCARE LAB Device ID [id number] 11/08/2024 5:14 PM EDT [facility]ALTH[facility]ARE LAB Specimen Type POC Capillary 11/08/2024 5:14 PM EDT [facility] Blood Capillary blood specimen / Unknown 11/08/2024 5:12 PM EDT 11/08/2024 5:14 PM EDT us Nathaly Nowak MD LAB POINT OF CARE TE ST DOCKED DEVICE UNSOLICITED RESULTS Final Result Performing Organization Address City/[facility] Co de Phone Number [facility] [address] [place] [address] * (ABNORMAL) POCT glucose meter (11/08/2024 12:03 PM EDT) [facility] POCT Glucose 191(H) 74 - 99 mg/dL [...] Comment 11/08/2024 12:05 PM EDT [facility]ALTH[facility]ARE LAB Manager Warehouse ID Estefani Sheth 11/08/2024 12:05 PM EDT HEALTHCARE LAB Device ID [id number] 11/08/2024 12:05 PM EDT [facility] Specimen Type POC Capillary 11/08/2024 12:05 PM EDT [facility] Blood Capillary blood specimen / Unknown 11/08/2024 12:03 PM EDT 11/08/2024 12:05 PM EDT Nathaly Nowak MD LAB POINT OF CARE TE ST DOCKED DEVICE UNSOLICITED RESULTS Final Result Performing Organization Address [facility] Co de Phone Number [facility]ARE [facility] [address] [place] [address] * Vancomycin, Peak, Plasma Please draw ~2 hours after 11/08 0600 dose of vancomycin finishes infusing.Consider obtaining level via peripheral stick. If peripheral stick is not feasible, please ensure that line is flushed well prior to drawing level.... (11/08/2024 9:24 AM EDT) [facility] Vancomycin, Peak, Plasma 29.1 20.0 - 40.0 ug/mL 11/08/2024 10:31 AM EDT [facility] Blood Venous blood specimen / Unknown Venipuncture / Unknown 11/08/2024 9:24 AM EDT 11/08/2024 9:47 AM EDT Narrative [facility] - 11/08/2024 10:31 AM EDT Therapeutic Peak level: 20-40ug/mL Supra-therapeutic Peak level: >40 ug/mL Nathaly Nowak MD LAB BLOOD ORDERABLES Final Resu lt Performing Organization Address [facility]/ZIP Co de Phone Number [facility] [address] [place] [address] * (ABNORMAL) POCT glucose meter (11/08/2024 8:00 AM EDT) [facility] POCT Glucose 150(H) 74 - 99 mg/dL [...] 11/08/2024 8:01 AM EDT [facility] Manager Warehouse ID Estefani Sheth 11/08/2024 8:01 AM EDT [facility]ALTH[facility]ARE LAB Device ID [id number] 11/08/2024 8:01 AM EDT [facility] Specimen Type POC Capillary 11/08/2024 8:01 AM EDT [facility] Blood Capillary blood specimen / Unknown 11/08/2024 8:00 AM EDT 11/08/2024 8:01 AM EDT Nathaly Nowak MD LAB POINT OF CARE TE ST DOCKED DEVICE UNSOLICITED RESULTS Final Result Performing Organization Address City/[facility]/ZIP Co de Phone Number [facility] [address] [place] [address] * (ABNORMAL) CBC and Differential (11/08/2024 4:39 AM EDT) [facility] WBC Count 9.18 3.70 - 10.30 10*3/uL LAB HEMATOLOGY METHOD 11/08/2024 4:58 AM EDT [facility] RBC Count 3.11(L) 4.60 - 6.10 10*6/uL LAB HEMATOLOGY METHOD 11/08/2024 4:58 AM EDT [facility] HGB 9.2(L) 13.7 - 17.5 g/dL LAB HEMATOLOGY METHOD 11/08/2024 4:58 AM EDT [facility] HCT 28.9(L) 40.0 - 51.0 % LAB HEMATOLOGY METHOD 11/08/2024 4:58 AM EDT [facility] Platelet Count 485(H) 155 - 369 10*3/uL LAB HEMATOLOGY METHOD 11/08/2024 4:58 AM EDT [facility] MCV 93 79 - 98 fL LAB HEMATOLOGY METHOD 11/08/2024 4:58 AM EDT [facility] MCH 29.6 26.0 - 32.0 pg LAB HEMATOLOGY METHOD 11/08/2024 4:58 AM EDT [facility] MCHC 31.8 30.7 - 35.5 g/dL LAB HEMATOLOGY METHOD 11/08/2024 4:58 AM EDT [facility] RDW 13.0 11.5 - 14.5 % LAB HEMATOLOGY METHOD 11/08/2024 4:58 AM EDT [facility] MPV 8.8 8.8 - 12.5 fL LAB HEMATOLOGY METHOD 11/08/2024 4:58 AM EDT [facility] nRBC 0.0 <=0.0 per 100 WBCs LAB HEMATOLOGY METHOD 11/08/2024 4:58 AM EDT [facility] Differential Type Automated LAB HEMATOLOGY METHOD 11/08/2024 4:58 AM EDT [facility] Neutrophils % 69 % LAB HEMATOLOGY METHOD 11/08/2024 4:58 AM EDT [facility] Lymphocytes % 17 % LAB HEMATOLOGY METHOD 11/08/2024 4:58 AM EDT [facility] Monocytes % 10 % LAB HEMATOLOGY METHOD 11/08/2024 4:58 AM EDT [facility] Eosinophils % 2 % LAB HEMATOLOGY METHOD 11/08/2024 4:58 AM EDT [facility] Basophils % 1 % LAB HEMATOLOGY METHOD 11/08/2024 4:58 AM EDT [facility] Immature Granulocytes % 1 % LAB HEMATOLOGY METHOD 11/08/2024 4:58 AM EDT [facility] Neutrophils Absolute 6.40(H) 1.60 - 6.10 10*3/uL LAB HEMATOLOGY METHOD 11/08/2024 4:58 AM EDT [facility] Lymphocytes Absolute 1.59 1.20 - 3.90 10*3/uL LAB HEMATOLOGY METHOD 11/08/2024 4:58 AM EDT [facility] Monocytes Absolute 0.87 0.30 - 0.90 10*3/uL LAB HEMATOLOGY METHOD 11/08/2024 4:58 AM EDT [facility] Eosinophils Absolute 0.22 0.00 - 0.50 10*3/uL LAB HEMATOLOGY METHOD 11/08/2024 4:58 AM EDT [facility] Basophils Absolute 0.05 0.00 - 0.10 10*3/uL LAB HEMATOLOGY METHOD 11/08/2024 4:58 AM EDT [facility] Immature Granulocytes Absolute 0.05 0.00 - 0.06 10*3/uL LAB HEMATOLOGY METHOD 11/08/2024 4:58 AM EDT [facility] Blood Venous blood specimen / Unknown Venipuncture / Unknown 11/08/2024 4:39 AM EDT 11/08/2024 4:49 AM EDT Narrative [facility] - 11/08/2024 4:58 AM EDT Therapeutic decision making should be based on absolute values, rather than percentages. us Nathaly Nowak MD LAB BLOOD ORDERABLES Final Resu lt [facility] [address] [place] [address] * (ABNORMAL) Comprehensive Metabolic Panel, Plasma (11/08/2024 4:39 AM EDT) Glucose, Plasma 255(H) 74 - 99 mg/dL 11/08/2024 5:20 AM EDT [facility] BUN, Plasma 10 8 - 23 mg/dL 11/08/2024 5:20 AM EDT [facility] Creatinine, Plasma 0.75 0.70 - 1.20 mg/dL 11/08/2024 5:20 AM EDT [facility] BUN/Creatinine Ratio 13 11/08/2024 5:20 AM EDT [facility] Sodium, Plasma 133(L) 136 - 145 mmol/L 11/08/2024 5:20 AM EDT [facility] Potassium, Plasma 5.2(H) 3.6 - 4.9 mmol/L 11/08/2024 5:20 AM EDT [facility] Chloride, Plasma 105 97 - 107 mmol/L 11/08/2024 5:20 AM EDT [facility] CO2, Plasma 20(L) 22 - 29 mmol/L 11/08/2024 5:20 AM EDT [facility] Anion Gap 8 6 - 16 mmol/L 11/08/2024 5:20 AM EDT [facility] Total Calcium, Plasma 7.7(L) 8.9 - 10.2 mg/dL 11/08/2024 5:20 AM EDT [facility] Total Protein 5.6(L) 6.3 - 7.9 g/dL 11/08/2024 5:20 AM EDT [facility] Albumin, Plasma 2.8(L) 3.5 - 5.2 g/dL 11/08/2024 5:20 AM EDT [facility] AST, Plasma 20 10 - 50 U/L 11/08/2024 5:20 AM EDT [facility] Comment:Hemolyzed, result ma y be falsely increased. ALT, Plasma 14 10 - 50 U/L 11/08/2024 5:20 AM EDT [facility] Alkaline Phosphatase, Plasma 119(H) 40 - 115 U/L 11/08/2024 5:20 AM EDT [facility] Total Bilirubin, Plasma <0.2(L) 0.2 - 1.1 mg/dL 11/08/2024 5:20 AM EDT [facility] eGFRcr 100.1 mL/min/1.7 3m*2 11/08/2024 5:20 AM EDT [facility] Comment:Reported eGFRcr in m L/min/1.73m2 is based the CKD-EPI 2020 equation that does not use a race coefficient. Blood Venous blood specimen / Unknown Venipuncture / Unknown 11/08/2024 4:39 AM EDT 11/08/2024 4:43 AM EDT us Nathaly Nowak MD LAB BLOOD ORDERABLES Final Resu lt Performing Organization Address [facility] Co de Phone Number [facility] [address] [place] [address] * Vancomycin, Trough, Plasma Please draw ~30 minutes prior to dose due at 0600 on 11/08. Please do NOThold dose awaiting level to return. Consider obtaining level via peripheral stick. If peripheral stick is not feasible, please ensure that line is... (11/08/2024 4:39 AM EDT) [facility] Vancomycin, Trough, Plasma 18.7 10.0 - 20.0 ug/mL 11/08/2024 5:22 AM EDT [facility] Blood Venous blood specimen / Unknown Venipuncture / Unknown 11/08/2024 4:39 AM EDT 11/08/2024 4:43 AM EDT Narrative [facility] - 11/08/2024 5:22 AM EDT Therapeutic Trough level: 10-20ug/mL Supra-therapeutic Trough level: >20 ug/mL Nathaly Nowak MD LAB BLOOD ORDERABLES Final Resu Performing Organization Address [facility] de Phone Number [facility] [address] [place] [id number] * (ABNORMAL) POCT glucose meter (11/07/2024 7:26 PM EDT) [facility] POCT Glucose 172(H) 74 - 99 mg/dL [...] 7:28 PM EDT [facility] Manager Warehouse ID Maximiliano Hansen II 11/07/2024 7:28 PM EDT [facility] Device ID [id number] 11/07/2024 7:28 PM EDT [facility] Specimen Type POC Capillary 11/07/2024 7:28 PM EDT [facility] Blood Capillary blood specimen / Unknown 11/07/2024 7:26 PM EDT 11/07/2024 7:28 PM EDT Nathaly Nowak MD LAB POINT OF CARE TE ST DOCKED DEVICE UNSOLICITED RESULTS Final Result Performing Organization Address City/[facility]/ZIP Co de Phone Number [facility] [address] [place] [address] * (ABNORMAL) POCT glucose meter (11/07/2024 5:51 [...] 11/07/2024 5:52 PM EDT [facility] Manager Warehouse ID Brigitte Castellon 11/07/2024 5:52 PM EDT [facility] Device ID [id number] 11/07/2024 5:52 PM EDT [facility] Specimen Type POC Capillary 11/07/2024 5:52 PM EDT [facility] Blood Capillary blood specimen / Unknown 11/07/2024 5:51 PM EDT 11/07/2024 5:52 PM EDT Nathaly Nowak MD LAB POINT OF CARE TE ST DOCKED DEVICE UNSOLICITED RESULTS Final Result [facility] [address] [place] [address] * (ABNORMAL) POCT glucose meter (11/07/2024 4:47 [...] Comment 11/07/2024 4:48 PM EDT [facility] Manager Warehouse ID Estefani Sheth 11/07/2024 4:48 PM EDT [facility] Device ID [id number] 11/07/2024 4:48 PM EDT [facility] Specimen Type POC Capillary 11/07/2024 4:48 PM EDT [facility] Blood Capillary blood specimen / Unknown 11/07/2024 4:47 PM EDT 11/07/2024 4:48 PM EDT us Nathaly Nowak MD LAB POINT OF CARE TE ST DOCKED DEVICE UNSOLICITED RESULTS Final Result Performing Organization Address City/State/[facility] Co de Phone Number [facility] [address] [place] [address] * (ABNORMAL) POCT glucose meter (11/07/2024 12:22 [...] Comment 11/07/2024 12:24 PM EDT [facility] Manager Warehouse ID Estefani Sheth 11/07/2024 12:24 PM EDT [facility] Device ID [id number] 11/07/2024 12:24 PM EDT [facility] Specimen Type POC Capillary 11/07/2024 12:24 PM EDT [facility] Blood Capillary blood specimen / Unknown 11/07/2024 12:22 PM EDT 11/07/2024 12:24 PM EDT us Nathaly M She MD LAB POINT OF CARE TE ST DOCKED DEVICE UNSOLICITED RESULTS Final Result [facility] [address] [place] [address] * (ABNORMAL) CBC and Differential (11/07/2024 11:37 AM EDT) WBC Count 9.96 3.70 - 10.30 10*3/uL LAB HEMATOLOGY METHOD 11/07/2024 12:33 PM EDT [facility] RBC Count 2.81(L) 4.60 - 6.10 10*6/uL LAB HEMATOLOGY METHOD 11/07/2024 12:33 PM EDT [facility] HGB 8.5(L) 13.7 - 17.5 g/dL LAB HEMATOLOGY METHOD 11/07/2024 12:33 PM EDT [facility] HCT 26.0(L) 40.0 - 51.0 % LAB HEMATOLOGY METHOD 11/07/2024 12:33 PM EDT [facility] Platelet Count 524(H) 155 - 369 10*3/uL LAB HEMATOLOGY METHOD 11/07/2024 12:33 PM EDT [facility] MCV 93 79 - 98 fL LAB HEMATOLOGY METHOD 11/07/2024 12:33 PM EDT [facility] MCH 30.2 26.0 - 32.0 pg LAB HEMATOLOGY METHOD 11/07/2024 12:33 PM EDT [facility] MCHC 32.7 30.7 - 35.5 g/dL LAB HEMATOLOGY METHOD 11/07/2024 12:33 PM EDT [facility] RDW 13.1 11.5 - 14.5 % LAB HEMATOLOGY METHOD 11/07/2024 12:33 PM EDT [facility] MPV 9.0 8.8 - 12.5 fL LAB HEMATOLOGY METHOD 11/07/2024 12:33 PM EDT [facility] nRBC 0.0 <=0.0 per 100 WBCs LAB HEMATOLOGY METHOD 11/07/2024 12:33 PM EDT [facility] Differential Type Automated LAB HEMATOLOGY METHOD 11/07/2024 12:33 PM EDT [facility] Neutrophils % 72 % LAB HEMATOLOGY METHOD 11/07/2024 12:33 PM EDT [facility] Lymphocytes % 17 % LAB HEMATOLOGY METHOD 11/07/2024 12:33 PM EDT [facility] Monocytes % 9 % LAB HEMATOLOGY METHOD 11/07/2024 12:33 PM EDT [facility] Eosinophils % 1 % LAB HEMATOLOGY METHOD 11/07/2024 12:33 PM EDT [facility] Basophils % 1 % LAB HEMATOLOGY METHOD 11/07/2024 12:33 PM EDT [facility] Immature Granulocytes % 0 % LAB HEMATOLOGY METHOD 11/07/2024 12:33 PM EDT [facility] Neutrophils Absolute 7.19(H) 1.60 - 6.10 10*3/uL LAB HEMATOLOGY METHOD 11/07/2024 12:33 PM EDT [facility] Lymphocytes Absolute 1.66 1.20 - 3.90 10*3/uL LAB HEMATOLOGY METHOD 11/07/2024 12:33 PM EDT [facility] Monocytes Absolute 0.88 0.30 - 0.90 10*3/uL LAB HEMATOLOGY METHOD 11/07/2024 12:33 PM EDT [facility] Eosinophils Absolute 0.14 0.00 - 0.50 10*3/uL LAB HEMATOLOGY METHOD 11/07/2024 12:33 PM EDT [facility] Basophils Absolute 0.05 0.00 - 0.10 10*3/uL LAB HEMATOLOGY METHOD 11/07/2024 12:33 PM EDT [facility] Immature Granulocytes Absolute 0.04 0.00 - 0.06 10*3/uL LAB HEMATOLOGY METHOD 11/07/2024 12:33 PM EDT [facility] Blood Venous blood specimen / Unknown Venipuncture / Unknown 11/07/2024 11:37 AM EDT 11/07/2024 12:24 PM EDT Narrative [facility] - 11/07/2024 12:33 PM EDT Therapeutic decision making should be based on absolute values, rather than percentages. us Nathaly Nowak MD LAB BLOOD ORDERABLES Final Resu lt [facility] [address] [place] [address] * (ABNORMAL) Comprehensive Metabolic Panel, Plasma (11/07/2024 11:37 AM EDT) [facility] Signature Glucose, Plasma 173(H) 74 - 99 mg/dL 11/07/2024 1:31 PM EDT [facility] BUN, Plasma 13 8 - 23 mg/dL 11/07/2024 1:31 PM EDT [facility] Creatinine, Plasma 0.92 0.70 - 1.20 mg/dL 11/07/2024 1:31 PM EDT [facility] BUN/Creatinine Ratio 14 11/07/2024 1:31 PM EDT [facility] Sodium, Plasma 136 136 - 145 mmol/L 11/07/2024 1:31 PM EDT [facility] Potassium, Plasma 4.0 3.6 - 4.9 mmol/L 11/07/2024 1:31 PM EDT [facility] Chloride, Plasma 104 97 - 107 mmol/L 11/07/2024 1:31 PM EDT [facility] CO2, Plasma 23 22 - 29 mmol/L 11/07/2024 1:31 PM EDT [facility] Anion Gap 9 6 - 16 mmol/L 11/07/2024 1:31 PM EDT [facility] Total Calcium, Plasma 7.8(L) 8.9 - 10.2 mg/dL 11/07/2024 1:31 PM EDT [facility] Total Protein 5.7(L) 6.3 - 7.9 g/dL 11/07/2024 1:31 PM EDT [facility] Albumin, Plasma 3.0(L) 3.5 - 5.2 g/dL 11/07/2024 1:31 PM EDT [facility] AST, Plasma 15 10 - 50 U/L 11/07/2024 1:31 PM EDT [facility] ALT, Plasma 16 10 - 50 U/L 11/07/2024 1:31 PM EDT [facility] Alkaline Phosphatase, Plasma 119(H) 40 - 115 U/L 11/07/2024 1:31 PM EDT [facility] Total Bilirubin, Plasma <0.2(L) 0.2 - 1.1 mg/dL 11/07/2024 1:31 PM EDT [facility] eGFRcr 92.3 mL/min/1.7 3m*2 11/07/2024 1:31 PM EDT [facility] Comment:Reported eGFRcr in m L/min/1.73m2 is based the CKD-EPI 2020 equation that does not use a race coefficient. Blood Venous blood specimen / Unknown Venipuncture / Unknown 11/07/2024 11:37 AM EDT 11/07/2024 12:23 PM EDT Nathaly Nowak MD LAB BLOOD ORDERABLES Final Resu lt Performing Organization Address City/[facility]/ZIP Co de Phone Number [facility] [address] [place] [address] * Type and Screen (11/07/2024 11:37 AM [...] ORDERABLES F inal Result Performing Organization Address [facility] Co de Phone Number BLOOD BANK [address] [place] [address], * (ABNORMAL) POCT glucose meter (11/07/2024 10:34 AM EDT) POCT Glucose 199(H) 74 - 99 mg/dL 11/07/2024 10:36 AM EDT [facility] Comment:Accuracy of a glucos e result [...] 11/07/2024 10:36 AM EDT [facility] Manager Warehouse ID Joy Iraheta 11/07/2024 10:36 AM EDT [facility] LAB Device ID [id number] 11/07/2024 10:36 AM EDT [facility] Specimen Type POC Capillary 11/07/2024 10:36 AM EDT [facility] Blood Capillary blood specimen / Unknown 11/07/2024 10:34 AM EDT 11/07/2024 10:36 AM EDT Nathaly Nowak MD LAB POINT OF CARE TE ST DOCKED DEVICE UNSOLICITED RESULTS Final Result Performing Organization Address City/[facility] Co de Phone Number [facility] [address] [place] [address] * (ABNORMAL) POCT glucose meter (11/07/2024 9:34 [...] 11/07/2024 9:36 AM EDT [facility] Manager Warehouse ID Brigitte Castellon 11/07/2024 9:36 AM EDT [facility] Device ID [id number] 11/07/2024 9:36 AM EDT [facility] Specimen Type POC Capillary 11/07/2024 9:36 AM EDT [facility] Blood Capillary blood specimen / Unknown 11/07/2024 9:34 AM EDT 11/07/2024 9:36 AM EDT Nathaly Nowak MD LAB POINT OF CARE TE ST DOCKED DEVICE UNSOLICITED RESULTS Final Result Performing Organization Address City/[facility]/ZIP Co de Phone Number [facility] [address] [place] [address] * (ABNORMAL) POCT glucose meter (11/07/2024 8:20 [...] 11/07/2024 8:22 AM EDT [facility] Manager Warehouse ID Estefani Sheth 11/07/2024 8:22 AM EDT [facility] LAB Device ID [id number] 11/07/2024 8:22 AM EDT [facility] Specimen Type POC Capillary 11/07/2024 8:22 AM EDT [facility] Blood Capillary blood specimen / Unknown 11/07/2024 8:20 AM EDT 11/07/2024 8:22 AM EDT us Nathaly Nowak MD LAB POINT OF CARE TE ST DOCKED DEVICE UNSOLICITED RESULTS Final Result Performing Organization Address City/State/[facility] Co de Phone Number [facility] [address] [place] [address] * (ABNORMAL) POCT glucose meter (11/07/2024 7:21 AM EDT) Pathologist [facility] POCT Glucose 151(H) 74 - 99 mg/dL [...] 7:22 AM EDT [facility] Manager Warehouse ID Brigitte Castellon 11/07/2024 7:22 AM EDT [facility] Device ID [id number] 11/07/2024 7:22 AM EDT [facility] Specimen Type POC Capillary 11/07/2024 7:22 AM EDT [facility] Blood Capillary blood specimen / Unknown 11/07/2024 7:21 AM EDT 11/07/2024 7:22 AM EDT Nathaly Nowak MD LAB POINT OF CARE TE ST DOCKED DEVICE UNSOLICITED RESULTS Final Result [facility] [address] [place] [address] * (ABNORMAL) POCT glucose meter (11/07/2024 6:25 [...] for testing. Comment 11/07/2024 6:27 AM EDT [facility] Manager Warehouse ID Nelda Gerber 11/08/19 6:27 AM EDT [facility] Device ID [id number] 11/07/2024 6:27 AM EDT [facility] Specimen Type POC Capillary 11/07/2024 6:27 AM EDT [facility] Blood Capillary blood specimen / Unknown 11/07/2024 6:25 AM EDT 11/07/2024 6:27 AM EDT us Nathaly Nowak MD LAB POINT OF CARE TE ST DOCKED DEVICE UNSOLICITED RESULTS Final Result [facility] [address] [place] [address] * (ABNORMAL) POCT glucose meter (11/07/2024 5:03 [...] 11/07/2024 5:08 AM EDT [facility] Manager Warehouse ID Nelda Gerber 11/08/19 5:08 AM EDT [facility] LAB Device ID [id number] 11/07/2024 5:08 AM EDT [facility] Specimen Type POC Capillary 11/07/2024 5:08 AM EDT [facility] Blood Capillary blood specimen / Unknown 11/07/2024 5:03 AM EDT 11/07/2024 5:08 AM EDT us Nathaly Nowak MD LAB POINT OF CARE TE ST DOCKED DEVICE UNSOLICITED RESULTS Final Result Performing Organization Address City/State/[facility] Co de Phone Number [facility] [address] [place] [address] * (ABNORMAL) POCT glucose meter (11/07/2024 4:16 [...] 11/07/2024 4:18 AM EDT [facility] Manager Warehouse ID Nelda Gerber 11/08/19 4:18 AM EDT [facility] LAB Device ID [id number] 11/07/2024 4:18 AM EDT [facility] Specimen Type POC Capillary 11/07/2024 4:18 AM EDT [facility] Blood Capillary blood specimen / Unknown 11/07/2024 4:16 AM EDT 11/07/2024 4:18 AM EDT us Nathaly Nowak MD LAB POINT OF CARE TE ST DOCKED DEVICE UNSOLICITED RESULTS Final Result [facility] [address] [place] [address] * (ABNORMAL) POCT glucose meter (11/07/2024 3:21 AM EDT) POCT Glucose 141(H) 74 - 99 mg/dL 11/07/2024 3:23 AM EDT [facility] Comment:Accuracy of a glucos e [...] for testing. Comment 11/07/2024 3:23 AM EDT [facility] Manager Warehouse ID Nelda Gerber 11/08/19 3:23 AM EDT [facility] Device ID [id number] 11/07/2024 3:23 AM EDT [facility] Specimen Type POC Capillary 11/07/2024 3:23 AM EDT [facility] Blood Capillary blood specimen / Unknown 11/07/2024 3:21 AM EDT 11/07/2024 3:23 AM EDT Nathaly Nowak MD LAB POINT OF CARE TE ST DOCKED DEVICE UNSOLICITED RESULTS Final Result Performing Organization Address City/[facility]/ZIP Co de Phone Number [facility] [address] [place] [address] * (ABNORMAL) POCT glucose meter (11/07/2024 2:10 [...] 2:12 AM EDT [facility] Manager Warehouse ID Nelda Gerber 11/08/19 25 2:12 AM EDT [facility]ALTH[facility]ARE LAB Device ID [id number] 11/07/2024 2:12 AM EDT [facility] Specimen Type POC Capillary 11/07/2024 2:12 AM EDT [facility] Blood Capillary blood specimen / Unknown 11/07/2024 2:10 AM EDT 11/07/2024 2:12 AM EDT Nathaly Nowak MD LAB POINT OF CARE TE ST DOCKED DEVICE UNSOLICITED RESULTS Final Result Performing Organization Address City/[facility] Co de Phone Number [facility] [address] [place] [address] * (ABNORMAL) POCT glucose meter (11/07/2024 1:08 [...] 11/07/2024 1:10 AM EDT [facility] LAB Manager Warehouse ID Nelda Gerber 11/08/19 1:10 AM EDT [facility] LAB Device ID [id number] 11/07/2024 1:10 AM EDT [facility] Specimen Type POC Capillary 11/07/2024 1:10 AM EDT [facility] Blood Capillary blood specimen / Unknown 11/07/2024 1:08 AM EDT 11/07/2024 1:10 AM EDT Nathaly Nowak MD LAB POINT OF CARE TE ST DOCKED DEVICE UNSOLICITED RESULTS Final Result Performing Organization Address City/[facility]/ZIP Co de Phone Number [facility] [address] [place] [address] * (ABNORMAL) POCT glucose meter (11/07/2024 12:10 AM EDT) [facility] POCT Glucose 127(H) 74 - 99 mg/dL [...] Comment 11/07/2024 12:13 AM EDT [facility] LAB Manager Warehouse ID Nelda Gerber 11/08/19 12:13 AM EDT [facility] LAB Device ID [id number] 11/07/2024 12:13 AM EDT [facility] Specimen Type POC Capillary 11/07/2024 12:13 AM EDT [facility] Blood Capillary blood specimen / Unknown 11/07/2024 12:10 AM EDT 11/07/2024 12:13 AM EDT Nathaly Nowak MD LAB POINT OF CARE TE ST DOCKED DEVICE UNSOLICITED RESULTS Final Result Performing Organization Address City/State/[facility] Co de Phone Number [facility] [address] [place] [address] * (ABNORMAL) POCT glucose meter (11/06/2024 11:14 PM EDT) [facility] POCT Glucose 71(L) 74 - 99 mg/dL 11/06/2024 11:16 PM EDT [facility] Comment:Accuracy of a glucos e result [...] 11:16 PM EDT [facility] Manager Warehouse ID Nelda Gerber 11/07/19 11:16 PM EDT HEALTH[facility]ARE LAB Device ID [id number] 11/06/2024 11:16 PM EDT [facility] Specimen Type POC Capillary 11/06/2024 11:16 PM EDT [facility] Blood Capillary blood specimen / Unknown 11/06/2024 11:14 PM EDT 11/06/2024 11:16 PM EDT Nathaly Nowak MD LAB POINT OF CARE TE ST DOCKED DEVICE UNSOLICITED RESULTS Final Result Performing Organization Address City/[facility]/ZIP Co de Phone Number [facility] [address] [place] [address] * (ABNORMAL) POCT glucose meter (11/06/2024 10:07 [...] for testing. Comment 11/06/2024 10:09 PM EDT [facility] Manager Warehouse ID Nelda Gerber 11/07/19 10:09 PM EDT HEALTH[facility]ARE LAB Device ID [id number] 11/06/2024 10:09 PM EDT [facility] Specimen Type POC Capillary 11/06/2024 10:09 PM EDT [facility] Blood Capillary blood specimen / Unknown 11/06/2024 10:07 PM EDT 11/06/2024 10:09 PM EDT Nathaly Nowak MD LAB POINT OF CARE TE ST DOCKED DEVICE UNSOLICITED RESULTS Final Result Performing Organization Address City/[facility]/ZIP Co de Phone Number [facility] [address] [place] [address] * (ABNORMAL) POCT glucose meter (11/06/2024 8:22 [...] Comment 11/06/2024 8:25 PM EDT [facility] LAB Manager Warehouse ID Nelda Gerber 11/07/19 8:25 PM EDT [facility] LAB Device ID [id number] 11/06/2024 8:25 PM EDT [facility] Specimen Type POC Capillary 11/06/2024 8:25 PM EDT [facility] Blood Capillary blood specimen / Unknown 11/06/2024 8:22 PM EDT 11/06/2024 8:25 PM EDT Nathaly Nowak MD LAB POINT OF CARE TE ST DOCKED DEVICE UNSOLICITED RESULTS Final Result [facility] [address] [place] [address] * (ABNORMAL) POCT glucose meter (11/06/2024 7:31 PM EDT) [facility] POCT Glucose 359(H) 74 - 99 mg/dL [...] Comment 11/06/2024 7:32 PM EDT [facility] Manager Warehouse ID Nelda Gerber 11/07/19 7:32 PM EDT [facility] LAB Device ID [id number] 11/06/2024 7:32 PM EDT [facility] Specimen Type POC Capillary 11/06/2024 7:32 PM EDT [facility] Blood Capillary blood specimen / Unknown 11/06/2024 7:31 PM EDT 11/06/2024 7:32 PM EDT Nathaly Nowak MD LAB POINT OF CARE TE ST DOCKED DEVICE UNSOLICITED RESULTS Final Result Performing Organization Address [facility] Co de Phone Number [facility] [address] [place] [address] * (ABNORMAL) POCT glucose meter (11/06/2024 6:15 PM EDT) [facility] POCT Glucose 368(H) 74 - 99 mg/dL [...] Comment 11/06/2024 6:17 PM EDT HEALTHCARE [facility] Manager Warehouse ID Estefani Sheth 11/06/2024 6:17 PM EDT HEALTH[facility]ARE LAB Device ID [id number] 11/06/2024 6:17 PM EDT [facility] Specimen Type POC Capillary 11/06/2024 6:17 PM EDT [facility] Blood Capillary blood specimen / Unknown 11/06/2024 6:15 PM EDT 11/06/2024 6:17 PM EDT Nathaly Nowak MD LAB POINT OF CARE TE ST DOCKED DEVICE UNSOLICITED RESULTS Final Result Performing Organization Address [facility] Co de Phone Number [facility] [address] [place] [address] * (ABNORMAL) POCT glucose meter (11/06/2024 4:57 PM EDT) [facility] POCT Glucose 417(H) 74 - 99 mg/dL [...] 11/06/2024 4:58 PM EDT [facility] Manager Warehouse ID Estefani Sheth 11/06/2024 4:58 PM EDT [facility]ARE LAB Device ID [id number] 11/06/2024 4:58 PM EDT [facility] Specimen Type POC Capillary 11/06/2024 4:58 PM EDT [facility] Blood Capillary blood specimen / Unknown 11/06/2024 4:57 PM EDT 11/06/2024 4:58 PM EDT Nathaly Nowak MD LAB POINT OF CARE TE ST DOCKED DEVICE UNSOLICITED RESULTS Final Result Performing Organization Address City/[facility]/ZIP Co de Phone Number [facility]ALTHCARE [facility] [address] [place] [address] * (ABNORMAL) POCT glucose meter (11/06/2024 2:08 PM EDT) [facility] POCT Glucose 253(H) 74 - 99 mg/dL [...] for testing. Comment 11/06/2024 2:09 PM EDT [facility] Manager Warehouse ID Brigitte Castellon 11/06/2024 2:09 PM EDT HEALTHCARE LAB Device ID [id number] 11/06/2024 2:09 PM EDT HEALTHCARE LAB Specimen Type POC Capillary 11/06/2024 2:09 PM EDT [facility]ALTH[facility]ARE LAB Blood Capillary blood specimen / Unknown 11/06/2024 2:08 PM EDT 11/06/2024 2:09 PM EDT us Nathaly Nowak MD LAB POINT OF CARE TE ST DOCKED DEVICE UNSOLICITED RESULTS Final Result Performing Organization Address City/[facility]/ZIP Co de Phone Number HEALTHCARE LAB [address] [place] [address] * (ABNORMAL) POCT glucose meter (11/06/2024 12:27 PM EDT) [facility] POCT Glucose 228(H) 74 - 99 mg/dL [...] 11/06/2024 12:28 PM EDT HEALTHCARE LAB Manager Warehouse ID [email or web address] Galloway 11/06/2024 12:28 PM EDT HEALTHCARE LAB Device ID [id number] 11/06/2024 12:28 PM EDT HEALTHCARE LAB Specimen Type POC Capillary 11/06/2024 12:28 PM EDT HEALTHCARE LAB Blood Capillary blood specimen / Unknown 11/06/2024 12:27 PM EDT 11/06/2024 12:28 PM EDT Nathaly Nowak MD LAB POINT OF CARE TE ST DOCKED DEVICE UNSOLICITED RESULTS Final Result [facility]ARE LAB [address] [place] [address] * (ABNORMAL) Tissue Culture and Gram Stain (11/06/2024 11:34 AM EDT) [facility] Culture Moderate Growth 7:35 AM EDT [facility] Culture 2+ Enterobacter cloacae complex(A) ANGÉLICA 11/15/2024 7:35 AM EDT [facility] Comment: This isolate has been identified using the FDA Approved Whisk (formerly Zypsee)er [place] System The organism value for this result has been updated. These results have been appended to the previously preliminary verified report. Edited result: Previously reported as Gram Negative Jesus on 11/07/2024 at 1434 EDT. Culture 2+ Streptococcus mitis/oralis group(A) ANGÉLICA 11/15/2024 7:35 AM EDT [facility] Comment: This isolate has been identified using the FDA Approved Mimosa Systemsyper [place] System The organism value for this result has been updated. These results have been appended to the previously preliminary verified report. Culture 2+ Pasteurella stomatis(A) ANGÉLICA 11/15/2024 7:35 AM EDT [facility] Comment: This result was determined by MALDI tof mass spectrometry using the Encarnate database and is for research use only. The organism value for this result has been updated. These results have been appended to the previously preliminary verified report. Gram Stain Result Few Gram negative rods(A) 11/15/2024 7:35 AM EDT [facility] Gram Stain Result Moderate Polymorphonuclear leukocytes(A) 11/15/2024 7:35 AM EDT [facility] Gram Stain Result Few Gram positive cocci in pairs(A) 11/15/2024 7:35 AM EDT [facility] Tissue Topography unknown / Unknown 11/06/2024 11:34 AM EDT 11/06/2024 12:18 PM EDT Comment:Pre-op diagnosis: Surgical wound infection [T81.49XA] Narrative [facility] - 11/15/2024 7:35 AM [...] GENERAL ATIYA FRITZ Edited Result - Final [facility] [address] [place] [address] * (ABNORMAL) Anaerobic Culture (11/06/2024 11:34 AM EDT) Culture No anaerobes isolated 11/14/2024 1:25 PM EDT [facility] Culture Staphylococcus pseudintermedius( A) 11/14/2024 1:25 PM EDT [facility] Comment: This result was determined by MALDI tof mass spectrometry using the Encarnate database and is for research use only. This is an appended report. These results have been appended to a previously final verified report. Tissue Topography unknown / Unknown 11/06/2024 11:34 AM EDT 11/06/2024 12:18 PM EDT Comment:Pre-op diagnosis: Surgical wound infection [T81.49XA] Narrative [facility] - 11/14/2024 1:25 PM [...] Nowak MD LAB MICROBIOLOGY - GENERAL ORDAna [facility] Edited Result - Final [facility] [address] [place] [address] * (ABNORMAL) Routine Culture and Gram Stain (11/06/2024 11:29 AM EDT) Culture Moderate Growth 5:29 PM EDT [facility] Culture Enterobacter cloacae complex(A) 11/08/2024 5:29 PM EDT [facility] Comment: This isolate has been identified using the FDA Approved Whisk (formerly Zypsee)er [place] System For susceptibility results refer to: - [id number] The organism value for this result has been updated. These results have been appended to the previously preliminary verified report. Gram Stain Result No polymorphonuclear leukocytes seen 11/08/2024 5:29 PM EDT [facility] Gram Stain Result No organisms seen 11/08/2024 5:29 PM EDT [facility] Swab Topography unknown / Unknown 11/06/2024 11:29 AM EDT 11/06/2024 12:19 PM EDT Comment:Pre-op diagnosis: Surgical wound infection [T81.49XA] Nathaly Nowak MD LAB MICROBIOLOGY - GENERAL ORDE RABLES Final Result Performing Organization Address [facility]/ZIP Co de Phone Number [facility] [address] [place] [address] * Fungal Culture, Routine (11/06/2024 11:29 AM EDT) Culture No Fungal Growth at 1 Week 11/13/2024 8:29 AM EDT [facility] Swab Topography unknown / Unknown 11/06/2024 11:29 AM EDT 11/06/2024 12:19 PM EDT Comment:Pre-op diagnosis: Surgical wound infection [T81.49XA] Nathaly Nowak MD LAB MICROBIOLOGY - GENERAL ORDE RABLES Final Result Performing Organization Address City/[facility] Co de Phone Number [facility] [address] [place] [address] * (ABNORMAL) Anaerobic Culture (11/06/2024 11:29 AM EDT) Culture No anaerobes isolated 11/14/2024 1:25 PM EDT [facility] Culture Streptococcus mitis/oralis group(A) 11/14/2024 1:25 PM EDT [facility] Comment: This result was determined by MALDI tof mass spectrometry using the Encarnate database and is for research use only. The organism value for this result has been updated. These results have been appended to the previously preliminary verified report. This is a corrected result. Previous organism was Mixed skin clifton on 11/10/2024 at 0718 EDT. Culture Staphylococcus pseudintermedius( A) 11/14/2024 1:25 PM EDT [facility] Comment: This isolate has been identified using the FDA Approved Whisk (formerly Zypsee)er [place] System This is an appended report. These results have been appended to a previously final verified report. Swab Topography unknown / Unknown 11/06/2024 11:29 AM EDT 11/06/2024 12:19 PM EDT Comment:Pre-op diagnosis: Surgical wound infection [T81.49XA] Narrative [facility] - 11/14/2024 1:25 PM [...] GENERAL ORDAna FRITZ Edited Result - Final [facility] [address] [place] [address] * Routine Culture and Gram Stain (11/06/2024 11:28 AM EDT) Culture No growth at day 4 2024 11:24 AM EDT [facility] Gram Stain Result No organisms seen 11/10/2024 11:24 AM EDT [facility] Gram Stain Result No polymorphonuclear leukocytes seen 11/10/2024 11:24 AM EDT [facility] Swab Topography unknown / Unknown 11/06/2024 11:28 AM EDT 11/06/2024 12:20 PM EDT Comment:Pre-op diagnosis: Surgical wound infection [T81.49XA] us Nathaly Nowak MD LAB MICROBIOLOGY - GENERAL ORDE RABONEIDA Final Result [facility] [address] [place] [address] * Fungal Culture, Routine (11/06/2024 11:28 AM EDT) Culture No Fungal Growth at 1 Week 11/13/2024 8:29 AM EDT [facility] Swab Topography unknown / Unknown 11/06/2024 11:28 AM EDT 11/06/2024 12:20 PM EDT Comment:Pre-op diagnosis: Surgical wound infection [T81.49XA] us Nathaly Nowak MD LAB MICROBIOLOGY - GENERAL ORDE LAM Final Result Performing Organization Address City/[facility]/ZIP Co de Phone Number [facility] [address] [place] [address] * Anaerobic Culture (11/06/2024 11:28 AM EDT) Culture No growth at day 4 11/13/2024 12:53 PM EDT [facility] Swab Topography unknown / Unknown 11/06/2024 11:28 AM EDT 11/06/2024 12:20 PM EDT Comment:Pre-op diagnosis: Surgical wound infection [T81.49XA] us Nathaly Nowak MD LAB MICROBIOLOGY - GENERAL ORDE RABONEIDA Final Result Performing Organization Address City/[facility]/ZIP Co de Phone Number [facility] [address] [place] [address] * (ABNORMAL) POCT glucose meter (11/06/2024 10:16 AM EDT) Pathologist [facility] POCT Glucose 194(H) 74 - 99 mg/dL [...] 11/06/2024 10:18 AM EDT HEALTHCARE LAB Manager Warehouse ID Lacy Griffin 11/07/19 10:18 AM EDT [facility] Device ID [id number] 11/06/2024 10:18 AM EDT HEALTHCARE LAB Specimen Type POC Capillary 11/06/2024 10:18 AM EDT [facility] Blood Capillary blood specimen / Unknown 11/06/2024 10:16 AM EDT 11/06/2024 10:18 AM EDT Nathaly Nowak MD LAB POINT OF CARE TE ST DOCKED DEVICE UNSOLICITED RESULTS Final Result Performing Organization Address City/State/[facility] Co de Phone Number HEALTHCARE LAB [address] [place], [place] [id number] * (ABNORMAL) POCT glucose meter (11/06/2024 5:58 AM EDT) Pathologist [facility] POCT Glucose 182(H) 74 - 99 mg/dL [...] 11/06/2024 6:01 AM EDT HEALTHCARE LAB Manager Warehouse ID Raj Laird 11/07/19 6:01 AM EDT HEALTHCARE LAB Device ID [id number] 11/06/2024 6:01 AM EDT HEALTHCARE LAB Specimen Type POC Capillary 11/06/2024 6:01 AM EDT [facility] Blood Capillary blood specimen / Unknown 11/06/2024 5:58 AM EDT 11/06/2024 6:01 AM EDT Nathaly Nowak MD LAB POINT OF CARE TE ST DOCKED DEVICE UNSOLICITED RESULTS Final Result Performing Organization Address City/[facility]/ZIP Co de Phone Number [facility] [address] [place] [address] * (ABNORMAL) POCT glucose meter (11/06/2024 5:36 AM EDT) POCT Glucose 202(H) 74 - 99 mg/dL 11/06/2024 5:38 AM EDT [facility] Comment:Accuracy of a glucos e result [...] for testing. Comment 11/06/2024 5:38 AM EDT [facility] Manager Warehouse ID Shahid Sanches 11/06/2024 5:38 AM EDT [facility] Device ID [id number] 11/06/2024 5:38 AM EDT [facility] Specimen Type POC Capillary 11/06/2024 5:38 AM EDT [facility] Blood Capillary blood specimen / Unknown 11/06/2024 5:36 AM EDT 11/06/2024 5:38 AM EDT us Nathaly Nowak MD LAB POINT OF CARE TE ST DOCKED DEVICE UNSOLICITED RESULTS Final Result Performing Organization Address City/[facility]/ZIP Co de Phone Number [facility] [address] [place] [address] * (ABNORMAL) Hemoglobin A1c (11/06/2024 1:07 AM EDT) Hemoglobin A1c 7.6(H) <5.7 % 11/06/2024 11:09 AM EDT [facility] Blood Venous blood specimen / Unknown Venipuncture / Unknown 11/06/2024 1:07 AM EDT 11/06/2024 1:26 AM EDT Narrative [facility] - 11/06/2024 11:09 AM EDT HA1C Interpretive Data: Diagnosis of Diabetes: Diabetic > or = 6.5% Pre-diabetic 5.7 to 6.4% Non-diabetic < or = 5.6% Glycemic Targets for Type I and Type II Diabetics: Non- Adults <7.0% Adults <6.0% Children and Adolescents <7.5% Source: [place] Diabetes Association. Standards of medical care in diabetes,2017. Diabetes Care.2017:40 (suppl 1):S1-S135. Result [facility] Nathaly Nowak MD LAB BLOOD ORDERABLES Final Resu lt Performing Organization Address City/[facility]/ZIP Co de Phone Number [facility] [address] [place] [address] * Blood Culture (Aerobic/Anaerobet Set) (11/06/2024 1:07 AM EDT) Culture No growth at day 5 11/11/2024 2:49 AM EDT [facility] Blood Structure of right hand / Unknown Venipuncture / Unknown 11/06/2024 1:07 AM EDT 11/06/2024 2:36 AM EDT Nathaly Nowak MD LAB MICROBIOLOGY - GENERAL ORDE RABLES Final Result Performing Organization Address City/[facility]/ZIP Co de Phone Number [facility] [address] [place] [address] * Blood Culture (Aerobic/Anaerobet Set) (11/06/2024 1:07 AM EDT) Culture No growth at day 5 11/11/2024 3:01 AM EDT [facility] Blood Structure of antecubital vein / Unknown Venipuncture / Unknown 11/06/2024 1:07 AM EDT 11/06/2024 2:36 AM EDT Nathaly Nowak MD LAB MICROBIOLOGY - GENERAL ORDE LAM Final Result [facility] [address] [place] [address] * (ABNORMAL) Basic metabolic panel (11/06/2024 1:07 AM EDT) Glucose, Plasma 207(H) 74 - 99 mg/dL 11/06/2024 1:41 AM EDT [facility] BUN, Plasma 20 8 - 23 mg/dL 11/06/2024 1:41 AM EDT [facility] Creatinine, Plasma 0.92 0.70 - 1.20 mg/dL 11/06/2024 1:41 AM EDT [facility] BUN/Creatinine Ratio 22 11/06/2024 1:41 AM EDT [facility] Sodium, Plasma 136 136 - 145 mmol/L 11/06/2024 1:41 AM EDT [facility] Potassium, Plasma 4.5 3.6 - 4.9 mmol/L 11/06/2024 1:41 AM EDT [facility] Chloride, Plasma 104 97 - 107 mmol/L 11/06/2024 1:41 AM EDT [facility] CO2, Plasma 22 22 - 29 mmol/L 11/06/2024 1:41 AM EDT [facility] Anion Gap 10 6 - 16 mmol/L 11/06/2024 1:41 AM EDT [facility] Total Calcium, Plasma 9.0 8.9 - 10.2 mg/dL 11/06/2024 1:41 AM EDT [facility] eGFRcr 92.3 mL/min/1.7 3m*2 11/06/2024 1:41 AM EDT [facility] Comment:Reported eGFRcr in m L/min/1.73m2 is based the CKD-EPI 2020 equation that does not use a race coefficient. Blood Venous blood specimen / Unknown Venipuncture / Unknown 11/06/2024 1:07 AM EDT 11/06/2024 1:12 AM EDT us Nathaly Nowak MD LAB BLOOD ORDERABLES Final Resu lt [facility] [address] [place] [address] * Phosphorus (11/06/2024 1:07 AM EDT) Phosphorus, Plasma 3.2 2.5 - 4.5 mg/dL 11/06/2024 1:41 AM EDT [facility] Blood Venous blood specimen / Unknown Venipuncture / Unknown 11/06/2024 1:07 AM EDT 11/06/2024 1:12 AM EDT Nathaly Nowak MD LAB BLOOD ORDERABLES Final Resu lt Performing Organization Address [facility] Co de Phone Number [facility] [address] [place] [address] * Magnesium (11/06/2024 1:07 AM EDT) Magnesium, Plasma 2.2 1.9 - 2.4 mg/dL 11/06/2024 1:41 AM EDT [facility] Blood Venous blood specimen / Unknown Venipuncture / Unknown 11/06/2024 1:07 AM EDT 11/06/2024 1:12 AM EDT Nathaly Nowak MD LAB BLOOD ORDERABLES Final Resu lt Performing Organization Address City/[facility] Co de Phone Number [facility] [address] [place] [address] * (ABNORMAL) CBC (11/06/2024 1:07 AM EDT) WBC Count 9.70 3.70 - 10.30 10*3/uL LAB HEMATOLOGY METHOD 11/06/2024 1:19 AM EDT [facility] RBC Count 2.89(L) 4.60 - 6.10 10*6/uL LAB HEMATOLOGY METHOD 11/06/2024 1:19 AM EDT [facility] HGB 8.8(L) 13.7 - 17.5 g/dL LAB HEMATOLOGY METHOD 11/06/2024 1:19 AM EDT [facility] HCT 26.2(L) 40.0 - 51.0 % LAB HEMATOLOGY METHOD 11/06/2024 1:19 AM EDT [facility] Platelet Count 542(H) 155 - 369 10*3/uL LAB HEMATOLOGY METHOD 11/06/2024 1:19 AM EDT [facility] MCV 91 79 - 98 fL LAB HEMATOLOGY METHOD 11/06/2024 1:19 AM EDT [facility] MCH 30.4 26.0 - 32.0 pg LAB HEMATOLOGY METHOD 11/06/2024 1:19 AM EDT [facility] MCHC 33.6 30.7 - 35.5 g/dL LAB HEMATOLOGY METHOD 11/06/2024 1:19 AM EDT [facility] RDW 13.2 11.5 - 14.5 % LAB HEMATOLOGY METHOD 11/06/2024 1:19 AM EDT [facility] MPV 8.7(L) 8.8 - 12.5 fL LAB HEMATOLOGY METHOD 11/06/2024 1:19 AM EDT [facility] nRBC 0.0 <=0.0 per 100 WBCs LAB HEMATOLOGY METHOD 11/06/2024 1:19 AM EDT [facility] Blood Venous blood specimen / Unknown Venipuncture / Unknown 11/06/2024 1:07 AM EDT 11/06/2024 1:12 AM EDT us Nathaly Nowak MD LAB BLOOD ORDERABLES Final Resu lt Performing Organization Address City/[facility]/ZIP Co de Phone Number [facility] [address] [place] [address] * Gold Top (11/06/2024 12:58 AM EDT) Extra Hold for add-ons 11/06/2024 3:21 AM EDT [facility] Comment:Auto resulted. Blood Venous blood specimen / Unknown 11/06/2024 12:58 AM EDT 11/06/2024 1:13 AM EDT us Nathaly Nowak MD LAB BLOOD ORDERABLES Final Resu lt Performing Organization Address City/[facility]/ZIP Co de Phone Number [facility] [address] [place] [address] * Gold Top (11/06/2024 12:58 AM EDT) Extra Hold for add-ons 11/06/2024 3:21 AM EDT [facility] Comment:Auto resulted. Blood Venous blood specimen / Unknown 11/06/2024 12:58 AM EDT 11/06/2024 1:13 AM EDT us Nathaly Nowak MD LAB BLOOD ORDERABLES Final Resu lt [facility] [address] [place] [address] * Light Green Top (11/06/2024 12:58 AM EDT) Extra Hold for add-ons 11/06/2024 3:21 AM EDT [facility] Comment:Auto resulted. Blood Venous blood specimen / Unknown 11/06/2024 12:58 AM EDT 11/06/2024 1:13 AM EDT us Nathaly Nowak MD LAB BLOOD ORDERABLES Final Resu lt Performing Organization Address [facility]/ZIP Co de Phone Number [facility] [address] [place] [address] * Light Blue Top (11/06/2024 12:58 AM EDT) Extra Hold for add-ons 11/06/2024 3:21 AM EDT [facility] Comment:Auto resulted. Blood Venous blood specimen / Unknown 11/06/2024 12:58 AM EDT 11/06/2024 1:13 AM EDT us Nathaly Nowak MD LAB BLOOD ORDERABLES Final Resu lt Performing Organization Address City/[facility]/ZIP Co de Phone Number [facility] [address] [place] [address] * Light Blue Top (11/06/2024 12:58 AM EDT) Extra Hold for add-ons 11/06/2024 3:21 AM EDT [facility] Comment:Auto resulted. Blood Venous blood specimen / Unknown 11/06/2024 12:58 AM EDT 11/06/2024 1:13 AM EDT us Nathaly Nowak MD LAB BLOOD ORDERABLES Final Resu lt [facility] [address] [place] [address] * (ABNORMAL) POCT glucose meter (11/06/2024 12:45 [...] Comment 11/06/2024 12:48 AM EDT HEALTHCARE LAB Manager Warehouse ID Raj Laird 11/07/19 25 12:48 AM EDT HEALTHCARE LAB Device ID [id number] 11/06/2024 12:48 AM EDT HEALTHCARE LAB Specimen Type POC Capillary 11/06/2024 12:48 AM EDT [facility] Blood Capillary blood specimen / Unknown 11/06/2024 12:45 AM EDT 11/06/2024 12:48 AM EDT us Nathaly Nowak MD LAB POINT OF CARE TE ST DOCKED DEVICE UNSOLICITED RESULTS Final Result Performing Organization Address City/[facility]/ZIP Co de Phone Number [facility] [address] [place] [address] documented in this encounter Visit Diagnoses Diagnosis [...] Bo) 0856 (Given - Provider: Yazmin Bhatt, CHRISITAN) cefepime (Maxipime) 2 g in sodium chloride [...] Routine 221 (Not Given - Provider: Jonathan Vael RN - Reason: Order parameters not met)2125 (Not Given - Provider: Jonathan Vale RN - Reason: Order parameters not met) 025 (Not Given - Provider: Jonathan Vale RN [...] documented as of this encounter Care Teams Tipple Supervisor Relationship Specialty Start Date End Date Asad Victor MD [address] [place] [address] PCP - General 10/07/22 documented as of this encounter
--- OUTSIDE RECORDS SUMMARY | 2024-11-06 10:47 | XMS_ITS | Encounter Summary ---
Author Organization Healthcare Address [address] [place] [address] Care Team Providers Care Chief Deputy Coroner Name Role Phone Asad Victor MD Primary Care Provider + [phone] Reason for Visit * Auth/Cert (Routine) Specialty Diagnoses / Procedures Referred By Contac t Referred To Contact Diagnoses Wound infection Post-op Vasc Sx wounds - sx on 10/17 at Nathaly Nowak MD [address] [facility] [address] [place] [address] Phone: tel: fax: [facility] Emergency Department [address] [place] [address] Phone: tel: Referral ID Status Reason Start Date Expiration Date Visits Re quested Visits Authorized [id number] 1 1 Encounter Details Date Type Department Care Team (Late st Contact Info) Description 11/06/2024 10:47 AM EDT Anesthesia Event [facility] OPERATING ROOM [address] [place] [address] Bill Sue MD [address] [place] [address] Sabrina Mckeon PA [address] [facility] [address] [place] [address] Anesthesia Record Procedure Summary Procedure [...] in the past 12 m [facility], were you homeless or living in a senior living (including now)? No 11/07/2024 CAGE ASSESSMENT Answer [...] drink first t dino in the morning (EYE-MANAGEMENT REP) to steady your nerves or to [...] and Staff Patient location during procedure: OR INVESTMENT MANAGER: Asad Lechuga CRNA, DNP Performed: INVESTMENT MANAGER Patient Condition Indications for airway management: [...] placement (Left) Location: [facility] OR 16 / [facility] OR Surgeons: Nathaly Nowak MD [facility]DREN'S [...] Abnormal Ventricular Rate 85 Atrial Rate 85 NC Interval 146 QRSD Interval 128 QT Interval 390 QTC Interval 464 P [place] 52 R [place]der[place] 263 T Wave [place] 57 Diagnosis Atrial-sensed ventricular-paced rhythm Diagnosis Biventricular [...] is no recent study available for direct kyzc-zk-fqin comparison. [facility]: Pre-operative CIED Report Assessment and Sara- Procedural Reommendations: Name: Mono Bobby Date: 10/17/2024 : 1960 Age: 64 y.o. Patient has a Senior Media Planner: Berger BANQUET SERVER-PM Remaining battery longevity adequate. Lead integrity test [...] RVR s/p CABG), CAD (CAD s/p multiple AL's and 3V CABG02/2019, 2 stents prior to CABG), carotid artery disease (carotid artery disease s/p R CEA 2016), dysrhythmias (3rd degree AV block BANQUET SERVER-P placed 08/2023 for Wenkeback with 11 sec pause), hyperlipidemia, pacemaker and PVD. Does not have angina, CHF, murmur, orthopnea, syncope or valvular heart disease. hypertension: Cardio additional comments: Follows with OSH Card last seen 09/25/24 (story) . Respiratory: home oxygen (2L). no asthma: [...] ENDARTERECTOMY N/A 2017 Endarterectomy Carotid Artery from [employer] CORONARY ANGIOPLASTY Left Coronary Angiography With Concomitant Left Heart Catheterization from [employer] CORONARY ARTERY BYPASS GRAFT N/A 2018 3V ELBOW SURGERY Right ENDARTERECTOMY Left 10/17/2024 common/SFA/Profunda thromboendarterectomy, EIA/EDUCATIONAL FUNDRAISING DIRECTOR stent HERNIA REPAIR KNEE ARTHROSCOPY Left VASCULAR SURGERY Left 09/21/2024 EDUCATIONAL FUNDRAISING DIRECTOR pseudoaneurym injection [5] Social History Tobacco Use [...] Info) Description 11/26/2024 2:00 PM EDT Appointment [facility] Lab [address], [address] [place] [address] 11/26/2024 2:30 PM EDT Appointment [facility] [address], [address] [place] [address] 11/26/2024 3:20 PM EDT Office Visit [facility] [address], [address] [place] [address] Elisabet Schuster PA [address] [facility] [address] [place] [address] 11/29/2024 2:30 PM EDT Office Visit [place] [address] [place] [address] Oscar Appiah MD [address] [facility] [address] [place] [address] documented as of this encounter Goals Goal Patient Goal Type Associated Problems Recent Progress Patient-Stated? Author Autogenera louise Goal Care Plan Autogenerated Problem No Ekta Arnett documented as of this encounter Procedures Procedure Name Priority Date/Time Associated Diagnosis Comments PB ANESTHESIA PLACEHOLDER Routine 11/06/2024 10:58 AM EDT [place] AN ELECTIVE ENDOTRACHEAL AIRWAY Routine 11/06/2024 10:58 AM EDT documented in this encounter Results * [place] AN ELECTIVE ENDOTRACHEAL AIRWAY, PB ANESTHESIA PLACEHOLDER (11/06/2024 10:58 AM EDT) Narrative Asad Lechuga CRNA, DNP - 11/06/2024 10:58 AM EDT Asad Lechuga CRNA, DNP 11/06/2024 11:05 AM Airway Date/Time: 11/06/2024 10:58 AM Reason: elective Airway not difficult General Information and Staff Patient location during procedure: OR INVESTMENT MANAGER: Asad Lechuga CRNA, DNP Performed: ISH Patient [...] documented as of this encounter Care Teams Chief Deputy Coroner Relationship Specialty Start Date End Date Asad Victor MD [address] [place] [address] PCP - General 10/07/22 documented as of this encounter
--- OUTSIDE RECORDS SUMMARY | 2024-11-15 10:13 | XMS_ITS | Encounter Summary ---
Author Organization Healthcare Address [address] [place] [address] Care Team Providers Care Audio Video Tech Name Role Phone Asad Victor MD Primary Care Provider + [phone] Encounter Details Date Type Department Care Team (Late st Contact Info) Description 09/20/2024 Orders Only External Location [address] [place] [address] Timothy Marques PA [address] [place] [address] Social History Tobacco Use Types Packs/Day Years [...] drink first t dino in the morning (EYE-MERCHANDISE PRESENTATION MANAGER) to steady your nerves or to [...] Info) Description 11/26/2024 2:00 PM EDT Appointment [facility] Lab [address] [facility] 5th Floor Wing [address], [address] [place] [address] 11/26/2024 2:30 PM EDT Appointment [facility] [address] [facility] 5th Floor [address] [place] [address] 11/26/2024 3:20 PM EDT Office Visit [facility] [address] [facility] 5th Floor Wing [address], [address] [place] [address] Elisabet Schuster, GLENDA [address] [facility] [address] [place] [address] 11/29/2024 2:30 PM EDT Office Visit [facility] [address] [place] [address] Oscar Appiah MD [address] [facility] [address] [place] [address] documented as of this encounter Procedures Procedure Name Priority Date/Time Associated Diagnosis Comments CT OUTSIDE IMAGES 09/20/2024 3:39 PM EDT documented in this encounter Results * CT OUTSIDE IMAGES (09/20/2024 3:39 PM EDT) Anatomical Region Laterality Modality Computed Tomogra phy 09/20/2024 3:39 PM EDT Timothy DOSHI IMG CT PROCEDURES Final Result documented in this encounter Visit Diagnoses Not on filedocumented in this encounter Additional Health Concerns Assessment Noted Time A Body Mass Index follow-up plan has been documented for the patient 09/22/2024 2:53 PM EDT documented as of this encounter Care Teams Audio Video Tech Relationship Specialty Start Date End Date Asad Victor MD [address] [place] [address] PCP - General 10/07/22 documented as of this encounter
--- OUTSIDE RECORDS SUMMARY | 2024-11-15 10:13 | XMS_ITS | Encounter Summary ---
Author Organization Healthcare Address [address] [place] [address] Care Team Providers Care Supervisor Uranium Processing Name Role Phone Asad Victor MD Primary Care Provider + [phone] Encounter Details Date Type Department Care Team (Late st Contact Info) Description 09/20/2024 Orders Only External Location [address] [place] [address] Timothy Marques PA [address] [place] [address] Social History Tobacco Use Types Packs/Day Years [...] drink first t dino in the morning (EYE-LIFE ASSURANCE REPRESENTATIVE) to steady your nerves or to [...] [facility] [address] [place] [address] 11/26/2024 2:30 PM EDT Appointment [facility] Vascular Lab [address] [facility] 5th Floor Wing D, [address] [place] [address] 11/26/2024 3:20 PM EDT Office Visit [facility] [address] [facility] 5th Floor Wing [address], [address] [place] [address] Elisabet Schuster, GLENDA [address] [facility] [address] [place] [address] 11/29/2024 2:30 PM EDT Office Visit [facility] [address] [place] [address] Oscar Appiah MD [address] [facility] [address] [place] [address] documented as of this encounter Procedures Procedure Name Priority Date/Time Associated Diagnosis Comments CT OUTSIDE IMAGES 09/20/2024 2:58 PM EDT documented in this encounter Results * CT OUTSIDE IMAGES (09/20/2024 2:58 PM EDT) Anatomical Region Laterality Modality Computed Tomogra phy 09/20/2024 2:58 PM EDT Timothy DOSHI IMG CT PROCEDURES Final Result documented in this encounter Visit Diagnoses Not on filedocumented in this encounter Additional Health Concerns Assessment Noted Time A Body Mass Index follow-up plan has been documented for the patient 09/22/2024 2:53 PM EDT documented as of this encounter Care Teams Supervisor Uranium Processing Relationship Specialty Start Date End Date Asad Victor MD [address] [place] [address] PCP - General 10/07/22 documented as of this encounter
--- OUTSIDE RECORDS SUMMARY | 2024-11-15 10:13 | XMS_ITS | Encounter Summary ---
Author Organization [facility] Address [address] [place] [address] Care Team Providers Care Bobbin Presser Name Role Phone Aasd Victor MD Primary Care Provider + [phone] Encounter Details Date Type Department Care Team [...] drink first t dino in the morning (EYE-PHYSICAL THERAPY NURSE) to steady your nerves or to [...] Info) Description 11/26/2024 2:00 PM EDT Appointment [facility] [address] [facility] 5th Floor Wing [address], [address] [place] [address] 11/26/2024 2:[address] [facility] Vascular Lab [address] 5th Floor [address] [place] [address] 11/26/2024 3:20 PM EDT Office Visit [facility] Comprehensive [facility]ascular Clinic [address] [facility] 5th Floor [address] [place] [address] Elisabet Schuster PA [address] [place] [address] 11/29/2024 2:30 PM EDT Office Visit [facility] [address] [place] [address] Oscar Appiah MD [address] [facility] [address] [place] [address] documented as of this encounter Visit Diagnoses Not on filedocumented in this encounter Additional Health Concerns Assessment Noted Time A Body Mass Index follow-up plan has been documented for the patient 09/22/2024 2:53 PM EDT documented as of this encounter Care Teams Bobbin Presser Relationship Specialty Start Date End Date Asad Victor MD [address] [place] [id number] PCP - General 10/07/22 documented as of this encounter
--- OUTSIDE RECORDS SUMMARY | 2024-11-15 10:13 | XMS_ITS | Encounter Summary ---
Author Organization Healthcare Address [address] [place] [address] Care Team Providers Care Manager Social Responsibility Name Role Phone Asad Victor MD Primary Care Provider + [phone] Encounter Details Date Type Department Care Team [...] drink first t dino in the morning (EYE-BELLMAN CAPTAIN) to steady your nerves or to get [...] Wish to be (Past 1 Month) No 11:05 PM EDT Ana Maria Corea 2. Non-Specific Active Suici marcelle Thoughts (Past 1 Month) No 09/20/2024 11:05 PM EDT Angelica Corea 6. Suicidal Behavior (Lifetime) No 11:05 PM EDT Ana Maria Corea documented as of this encounter Plan of Treatment Upcoming Encounters Date Type Department Care Team (Late st Contact Info) Description 11/26/2024 2:00 PM EDT Appointment [facility] Vascular Lab [address] [facility] 5th Floor [address] [place] [address] 11/26/2024 2:30 PM EDT Appointment [facility] Lab [address] [facility] 5th Floor [address] [place] [address] 11/26/2024 3:20 PM EDT Office Visit [facility] [address] 5th Floor [address] [place] [address] Elisabet Schuster PA [address] [place] [address] 11/29/2024 2:30 PM EDT Office Visit [place] [address] [place] [address] [place] [address] [place] [address] [address] [place] [address] documented as of this encounter Visit Diagnoses Not on filedocumented in this encounter Additional Health Concerns Assessment Noted Time A Body Mass Index follow-up plan has been documented for the patient 09/22/2024 2:53 PM EDT documented as of this encounter Care Teams Manager Social Responsibility Relationship Specialty Start Date End Date Asad Victor MD [address] [place] [address] PCP - General 10/07/22 documented as of this encounter
--- OUTSIDE RECORDS SUMMARY | 2024-11-15 10:13 | XMS_ITS | Encounter Summary ---
Author Organization Healthcare Address [address] [place] [address] Care Team Providers Care Review Rn Name Role Phone Asad Victor MD Primary Care Provider + [phone] Encounter Details Date Type Department Care Team (Late st Contact Info) Description 09/21/2024 Orders Only External Location [address] [place] [address] Provider, External Social History Tobacco Use Types [...] drink first t dino in the morning (EYE-CONDUIT MECHANIC) to steady your nerves or to [...] Info) Description 11/26/2024 2:00 PM EDT Appointment [facility] Vascular Lab [address] [facility] 5th Floor [address] [place] [address] 11/26/2024 2:30 PM EDT Appointment [facility] Vascular Lab [address] [facility] 5th Floor [address], [address] [place] [address] 11/26/2024 3:20 PM EDT Office Visit [facility] [address] [facility] 5th Floor [address] [place] [address] Elisabet Schuster PA [address] [place] [address] 11/29/2024 2:30 PM EDT Office Visit [address] [address] Oscar Appiah MD [address] [place] [address] [address] [place] [address] documented as of this encounter [...] documented as of this encounter Care Teams Review Rn Relationship Specialty Start Date End Date Asad Victor MD [address] [place] [address] PCP - General 10/07/22 documented as of this encounter
--- OUTSIDE RECORDS SUMMARY | 2024-11-15 10:14 | XMS_ITS | Encounter Summary ---
Author Organization [facility] Address [address] [place] [address] Care Team Providers Care Fisher Trammel Net Name Role Phone Asad Victor MD Primary Care Provider + [phone] Encounter Details Date Type Department Care Team [...] drink first t dino in the morning (EYE-SUCCESSFACTORS CONSULTANT) to steady your nerves or to [...] Appointment [facility]ascular Lab [address] 5th Floor [address] [place] [address] 11/26/2024 2:30 PM EDT Appointment [facility] [address] 5th Floor [address] [place] [address] 11/26/2024 3:20 PM EDT Office Visit [facility] [address] 5th Floor [address] [place] [address] Elisabet Schuster, PA [address] [place] [address] 11/29/2024 2:30 PM EDT Office Visit [facility] [address] [facility] [place] [address] Oscar Appiah MD [address] [facility] [address] [place] [address] documented as of this encounter [...] documented as of this encounter Care Teams Fisher Trammel Net Relationship Specialty Start Date End Date Asad Victor MD [address] [place] [address] PCP - General 10/07/22 documented as of this encounter
--- OUTSIDE RECORDS SUMMARY | 2024-11-15 10:14 | XMS_ITS | Encounter Summary ---
Author Organization Healthcare Address [address] [place] [id number] Care Team Providers Care Credit Review Analyst Name Role Phone Asad Victor MD Primary Care Provider + [phone] Encounter Details Date Type Department Care Team (Late st Contact Info) Description 10/22/2024 Telephone Vascular Surgery [address] [place] [address] Alison Beltrán, AGENCY RECRUITER, DNP [address] [facility] [address] [place] [address] Social History Tobacco Use Types Packs/Day Years [...] time in the past 12 m [facility], were you homeless or living in a [...] drink first t dino in the morning (EYE-ON SITE MANAGER) to steady your nerves or [...] Notes * Telephone Encounter - Alison Beltrán, AGENCY RECRUITER, DNP - 10/22/2024 11:39 AM EDT Returned patient call. Patient s/p left common/superficial/profunda femoral thromboendarterectomy with bovine patch repair and left external iliac artery/PANEL LAMINATOR stent with Dr Gautam on 10/17/24. Patient [...] Info) Description 11/26/2024 2:00 PM EDT Appointment [facility] Vascular Lab [address] [place] [address] 11/26/2024 2:30 PM EDT Appointment [facility] Lab [address] [place] [address] 11/26/2024 3:20 PM EDT Office Visit [facility] [address] [place] [address] Elisabet Schuster, PA [address] [facility] [address] [place] [address] 11/29/2024 2:30 PM EDT Office Visit [facility] [address] [place] [address] Oscar Appiah MD [address] [facility] [address] [place] [address] documented as of this encounter [...] documented as of this encounter Care Teams Credit Review Analyst Relationship Specialty Start Date End Date Asad Victor MD [address] [place] [address] PCP - General 10/07/22 documented as of this encounter
--- OUTSIDE RECORDS SUMMARY | 2024-11-15 10:14 | XMS_ITS | Clinical Summary ---
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 [facility] [address] [place] [address] * CT OUTSIDE IMAGES (11/05/2024 12:50 PM EDT) Only the most recent of3 resultswithin the time period is included. Anatomical Region Laterality Modality Computed Tomogra phy 11/05/2024 12:5 0 PM EDT us External Provider IMG CT PROCEDURES Final Result * (ABNORMAL) Protime-INR (10/19/2024 8:25 AM EDT) Only the most recent of3 resultswithin the time period is included. Prothrombin Time 17.5(H) 12.0 - 14.3 sec LAB COAGULATION METHOD 10/19/2024 9:25 AM EDT [facility] INR 1.4(H) 0.9 - 1.1 LAB COAGULATION METHOD 10/19/2024 9:25 AM EDT [facility] Blood Venous blood specimen / Unknown [...] INR 2.5 to 3.5 Prevention of recurrent DE INR 2.5 to 3.5 Nirmal Cueto MD LAB BLOOD ORDERABLES Final Result Performing Organization Address [facility] Co de Phone Number [facility] [address] [place] [address] * FL Less than 1 Hour Intraoperative (10/17/2024 1:18 PM EDT) Narrative IMAGING - 10/17/2024 2:05 PM EDT Images were obtained for surgical purposes. See Terrell Gautam's surgical note in the patient's chart for the findings. Terrell Gautam MD IMG FLUOROSCOPY PROCEDURES Fi nal Result Performing Organization Address City/[facility]/ZIP Co de Phone Number IMAGING * POCT ACT (10/17/2024 12:23 PM EDT) Only the most recent of6 resultswithin the time period is included. ACT+ (HIGH RANGE) 211 68 - 600 Seconds 10/29/2024 7:28 AM EDT [facility] Inside Sales Executive ID Donna Mcmillan Maya 10/29/2024 7:28 AM EDT HEALTH[facility]ARE LAB ACT Device ID [id number] 10/29/2024 7:28 AM EDT [facility] Comment 10/29/2024 7:28 AM EDT [...] UNSOLICITED RESULTS Final Result [facility] [address] LAB [address] [place] [address] * (ABNORMAL) Blood gas, arterial (10/17/2024 11:48 [...] 10/17/2024 11:53 AM EDT us Jenna Lopez [facility] LAB BLOOD ORDERABLES Final Re sult [facility] [address] [place] [address] * Surgical Pathology Exam (10/17/2024 10:27 AM EDT) Case Report Surgical Pathology Case: [id number] Authorizing Provider: Terrell Gautam MD Collected: 10/17/2024 [...] cm. The specimen is serially sectioned and patient service representative sections are submitted in cassette A1. Cold Time: <1m Kenia Dawit Aceves 10/21/2024 10:16 AM EDT [facility] MD LAB PATHOLOGY ORDERABLES Gwen l Result [facility] [address] [place] [address] * ANESTHESIA ULTRASOUND GUIDED (10/17/2024 8:52 AM [...] Performed by Swetha Villareal MD Staffing Performed: FIELD SERVICE COORDINATOR FIELD SERVICE COORDINATOR: Jenna Lopez CRNA Maria Fernanda Mccallum MD ANESTHESIA ORDERABLES Edite d Result - Final * [place] AN ELECTIVE ENDOTRACHEAL AIRWAY, PB ANESTHESIA PLACEHOLDER (10/17/2024 8:03 AM EDT) Narrative Jenna Lopez CRNA - 10/17/2024 8:03 AM EDT Jenna Lopez CRNA 10/17/2024 9:00 AM Airway Date/Time: 10/17/2024 8:03 AM Reason: elective Airway not difficult General Information and Staff Patient location during procedure: OR FIELD SERVICE COORDINATOR: Jenna Lopez CRNA Performed: ISH Patient [...] Mccallum MD ANESTHESIA ORDERABLES Final Result * [facility] AN POCUS CARDIAC PROCDOC (10/17/2024 7:18 AM EDT) Maria Fernanda Dewey MD - 10/17/2024 7:18 AM EDT Maria [...] Trace AR. The images were Saved in [employer] - E. The study was technically adequate. [...] Modality Other Narrative 10/17/2024 9:50 AM EDT [facility]: Pre-operative CIED Report Assessment and Sara-Procedural Reommendations: Name: Mono Bobby Date: 10/17/2024 : 1960 Age: 64 y.o. 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 Lead integrity test [...] 7:15 PM EDT CLINICAL INDICATION: s/p L PLUG WIRER pseudoaneurysm injection TECHNIQUE: Non-invasive, real time duplex [...] sac. The following flow velocities were obtained: PLUG WIRER: 114 cm/s SFA: 0 cm/s PFA: 278 cm/s Popliteal A: 41 cm/s LOG CUT OFF SAWYER distal: 43 cm/s DPA: 67 cm/s Pseudoaneurysm sac: 0 cm/s Procedure Note Neil Isaac MD - 09/22/2024 CLINICAL INDICATION: s/p L PLUG WIRER pseudoaneurysm injection TECHNIQUE: Non-invasive, real time duplex exam of the lower extremity arterialcirculation with Doppler ultrasonic waveform and spectral analysis wasperformed. COMPARISON: Post pseudoaneurysm thrombin injection arterial duplex vecsglref97/28/2025; Following thrombin injection of the left common femoral arterypseudoaneurysm, no active flow is noted. Study suggests successfulthrombin injection therapy FINDINGS: Left: Following thrombin injection, an echogenic thrombus is noted within thepseudoaneurysm sac. Color and pulsed Doppler analysis demonstrates anabsence of flow within the pseudoaneurysm sac. The following flowvelocities were obtained: PLUG WIRER: 114 cm/s SFA: 0 cm/s PFA: 278 cm/s Popliteal A: 41 cm/s LOG CUT OFF SAWYER distal: 43 cm/s DPA: 67 cm/s Pseudoaneurysm [...] ECG Atrial Rate 85 BPM MUSE ECG AZ Interval 146 ms MUSE ECG QRSD Interval 128 ms MUSE ECG QT Interval 390 ms MUSE ECG QTC Interval 464 ms MUSE ECG P Erskine 52 degrees MUSE ECG R E[place]ine 263 degrees MUSE ECG T Wave E[place]kine 57 degrees MUSE ECG Diagnosis Atrial-sensed ventricular-pace d rhythm MUSE ECG Diagnosis Biventricular pacemaker detected MUSE ECG Diagnosis MUSE ECG Diagnosis MUSE ECG Diagnosis Confirmed by Sana Ruth ([id number]) on 09/22/2024 11:34:36 PM MUSE ECG 09/21/2024 2:00 AM EDT 09/22/2024 11:34 PM EDT us Nathaly Nowak MD ECG ORDERABLES Final Result MUSE ECG * ED HIV 1/2 Antibody/Antigen Screen w/Reflex to HIV 1/2 Differentiation (09/20/2024 10:33 PM EDT) [facility] HIV 1 & 2 Antibody/Antigen Screen Non Reactive Non Reactive 09/20/2024 11:39 PM EDT [facility] Comment:Screening for HIV 1 & 2 antibodies, and P24 antigen is NONREACTIVE. No confirmatory testing is required. Blood Venous blood specimen / Unknown Venipuncture / Unknown 09/20/2024 10:33 PM EDT 09/20/2024 10:54 PM EDT us Giorgi Perkins MD LAB BLOOD ORDERABLES Final Result Performing Organization Address City/[facility]/ZIP Co de Phone Number [facility] [address] [place] [address] * Hepatitis C Antibody - ED (09/20/2024 10:33 PM EDT) [facility] Hepatitis C Antibody Negative Negative 09/20/2024 11:39 PM EDT [facility] Blood Venous blood specimen / Unknown Venipuncture / Unknown 09/20/2024 10:33 PM EDT 09/20/2024 10:53 PM EDT us Giorgi Perkins MD LAB BLOOD ORDERABLES Final Result Performing Organization Address City/[facility]/ZIP Co de Phone Number [facility] [address] [place] [address] * APTT (09/20/2024 10:33 PM EDT) aPTT 28 25 - 35 sec LAB COAGULATION METHOD 09/21/2024 12:19 AM EDT [facility] Blood Venous blood specimen / Unknown Venipuncture / Unknown 09/20/2024 10:33 PM EDT 09/20/2024 10:42 PM EDT Giorgi Perkins MD LAB BLOOD ORDERABLES Final Result [facility] [address] [place] [address] from Last 3 Months Additional Health Concerns Active Problems Noted Date Diagnosed Date Autogenerated Problem 09/23/2024 Insurance [facility] Advance Directives * Full Code (Latest Code Status on File) Date Activated Date Inactivated Comments 11/06/2024 12:36 AM 11/14/2024 6:04 PM Question Answer Comments I have reviewed the capacity from the link above and, if needed, have updated to appropriate status: Yes * Full Code Date Activated Date Inactivated Comments 10/17/2024 1:08 [...] Patient has decision-making capacity? Yes Care Teams Call Center Manager Relationship Specialty Start Date End Date Asad Victor MD [address] [place] [address] PCP - General 10/07/22
--- OUTSIDE RECORDS SUMMARY | 2024-11-15 10:15 | XMS_ITS | Encounter Summary ---
Author Organization Healthcare Address [address] [place] [address] Care Team Providers Care Multimedia Designer Name Role Phone Asad Victor MD Primary Care Provider + [phone] Encounter Details Date Type Department Care Team (Late st Contact Info) Description 10/17/2024 Orders Only External Location [address] [place] [address] Provider, External Social History Tobacco Use Types [...] in the past 12 m [facility], were you homeless or living in a [...] drink first t dino in the morning (EYE-FORM COVERER) to steady your nerves or to get rid of a hangover? 0 10/18/2021 CAGE Questionnaire Score 0 022 Utilities Answer Date Recorded In the past 12 months has th e [email or web address], gas, oil, or water [employer] threatened to shut off services in your [...] Mao RN documented as of this encounter Plan of Treatment Upcoming Encounters Date Type Department Care Team (Late st Contact Info) Description 11/26/2024 2:00 PM EDT Appointment [facility] [address] [facility] 5th [address] [place] [address] 11/26/2024 2:30 PM EDT Appointment [facility] [address] [facility] 5[address] [place] [address] 11/26/2024 3:20 PM EDT Office Visit [facility] [address] [facility] 5th [address] [place] [address] Elisabet Schuster PA [address] [place] [address] 11/29/2024 2:30 PM EDT Office Visit [place] [id number] [place] [address] [place] [address] [place] [address] [address] [place] [address] documented as of this encounter [...] documented as of this encounter Care Teams Multimedia Designer Relationship Specialty Start Date End Date Asad Victor MD [address] [place] [address] PCP - General 10/07/22 documented as of this encounter
--- OUTSIDE RECORDS SUMMARY | 2024-11-15 10:15 | XMS_ITS | Encounter Summary ---
Author Organization [facility] Address [address] [place] [address] Care Team Providers Care Mill Operator Name Role Phone Asad Victor MD Primary Care Provider + [phone] Encounter Details Date Type Department Care Team [...] any time in the past 12 m [facility], were you homeless or [...] drink first t dino in the morning (EYE-SAP SD ANALYST) to steady your nerves or to [...] Description 11/26/2024 2:[address] [facility] [address] [place] [address] 11/26/2024 2:[address] [facility] [address] [place] [address] 11/26/2024 3:20 PM EDT [facility] [address] [place] [address] Elisabet Schuster, PA [address] [place] [address] 11/29/2024 2:30 PM EDT Office Visit [facility] [address] [place] [address] Oscar [place]iah MD [address] [facility] [address] [place] [address] documented as of this encounter [...] documented as of this encounter Care Teams Mill Operator Relationship Specialty Start Date End Date Asad Victor MD [address] [place] [address] PCP - General 10/07/22 documented as of this encounter
--- OUTSIDE RECORDS SUMMARY | 2024-11-15 10:16 | XMS_ITS | Referral Summary ---
Author Organization [email or web address] ([place], [place], [place], [place]) Address [address] [place] [address] Care Team Providers Care Lpn Cma Name Role Phone Unavailable Primary Care Provider Unavailabl e Social History Tobacco Use Types Packs/Day Years Used Date Smoking Tobacco: Never Assessed Sex and Gender Information Value Date Recorded Sex Assigned at Not on file Legal Sex Male 1:35 PM CDT Gender Identity Not on file Sexual Orientation Not on file Plan of Treatment Upcoming Encounters Date Type Department Care Team (Late st Contact Info) Description 11/18/2024 1:10 PM EDT Office Visit [facility] [address] [place] [address] Jerry [place] Jr., MD [address] [place] [address]
--- OUTSIDE RECORDS SUMMARY | 2024-11-15 10:16 | XMS_ITS | Encounter Summary ---
Author Organization [facility] Address [address] [place] [address] Care Team Providers Care Supervisor Inspection Room Name Role Phone Asad Victor MD Primary Care Provider + [phone] Encounter Details Date Type Department Care Team [...] drink first t dino in the morning (EYE-FULFILLMENT MAIL CLERK) to steady your nerves or to [...] Info) Description 11/26/2024 2:00 PM EDT Appointment [facility] [address] 5th [address] [place] [address] 11/26/2024 2:30 PM EDT Appointment [facility] [address] 5th [address] [place] [address] 11/26/2024 3:20 PM EDT Office Visit [facility] [address] 5th [address] [place] [address] Elisabet Schuster, PA [address] [place] [address] 11/29/2024 2:30 PM EDT Office Visit [facility] [address] [facility] [place] [address] Oscar Appiah MD [address] [facility] [address] [place] [address] documented as of this encounter [...] as of this encounter Care Teams Supervisor Inspection Room Relationship Specialty Start Date End Date Asad Victor MD [address] [place] [address] PCP - General 10/07/22 documented as of this encounter
--- OUTSIDE RECORDS SUMMARY | 2024-11-15 10:16 | XMS_ITS | Clinical Summary ---
Author Organization [email or web address] ([place], [place], [place], [place] Address [address] [place] [address] Care Team Providers Care Property Disposal Officer Name Role Phone Unavailable Primary Care Provider [...] Description 11/18/2024 1:10 PM EDT Office Visit [facility] [address] [place] [address] [place] Jr., MD [address] [place] [address] Health Maintenance Due Date Last Done Comments CT Colonography 1959 Colonoscopy 1959 Colorectal Cancer Screening 1959 FOBT/FIT 1959 Fit-DNA (Cologuard) 1959 Sigmoidoscopy 1959 Depression Screening (12+) 1971 Tobacco Cessation Counseling and Screening (12+) 1971 HIV Screening 1974 Hepatitis C Screening 1977 DTAP/TDAP/TD VACCINES (1 - Tdap) 1978 Lipid Panel 1994 Shingles Vaccine (Zoster) (2 of 2) 02/04/20212020 Pneumococcal 50+ years (2 of 2 - PCV) 03/11/2021 COVID-19 VACCINE ( season) 2023, 07/31/2020 Falls Risk Screening 03/27/2024 Influenza Vaccine (#1) 2024 02/06/2021 Respiratory Syncytial Virus (RSV) Adult or (1 - 1-dose 75+ series) 2034
--- OUTSIDE RECORDS SUMMARY | 2024-11-15 10:17 | XMS_ITS | Encounter Summary ---
Author Organization Healthcare Address [address] [place] [address] Care Team Providers Care Poly Operator Name Role Phone Asad Victor MD Primary Care Provider + [phone] Encounter Details Date Type Department Care Team (Late st Contact Info) Description 11/15/2024 Clinical Support [address] [place] [address] Charly Orlando, PharmD [address] [place] [address] [address] [place] [address] Social History Tobacco Use Types Packs/Day Years [...] time in the past 12 m [facility], were you homeless or living [...] drink first t dino in the morning (EYE-CAMPUS EXECUTIVE DIRECTOR) to steady your nerves or to get rid of a hangover? 0 10/18/2021 CAGE Questionnaire Score 0 022 Utilities Answer Date Recorded In the past 12 months has th e [employer] system master, gas, oil, or water company threatened to [...] Info) Description 11/26/2024 2:00 PM EDT Appointment [facility] [address] 5th [address] [place] [address] 11/26/2024 2:30 PM EDT Appointment [facility] [address] 5th Floor [address] [place] [address] 11/26/2024 3:20 PM EDT Office Visit [facility] [address] 5th [address] [place] [address] Elisabet Schuster, PA [address] [place] [address] 11/29/2024 2:30 PM EDT Office Visit [facility] [address] [facility] [place] [address] Oscar Appiah MD [address] [facility] [address] [place] [address] documented as of this encounter [...] plan has been documented for the patient 11/15/2024 8:19 AM EDT documented as of this encounter Care Teams Poly Operator Relationship Specialty Start Date End Date Asad Victor MD [address] [place] [address] PCP - General 10/07/22 documented as of this encounter
--- OUTSIDE RECORDS SUMMARY | 2024-11-15 10:17 | XMS_ITS | Encounter Summary ---
Author Organization [facility] Address [address] [place] [address] Care Team Providers Care Air Twist Operator Name Role Phone Asad Victor MD Primary Care Provider + [phone] Encounter Details Date Type Department Care Team (Latest Contact Info) Description 11/06/2024 Travel Social History Tobacco Use Types Packs/Day [...] drink first t dino in the morning (EYE-DYE CAN OPERATOR) to steady your nerves or to [...] of Assessment Author No Risk Indicated 11/06/2024 2:00 PM SIAT Brigitte Castellon RN * Question Answer Date of Assessment Author 1. Wish to be (Past 1 Month) No 025 2:00 PM EDT Ravinder, Brigitte E, RN 2. Non-Specific Active Suici marcelle Thoughts (Past 1 Month) No 11/06/2024 2:00 PM EDT Brigitte Castellon RN 6. Suicidal Behavior (Lifetime) No 2:00 PM EDT Brigitte Castellon RN documented as of this encounter Plan of Treatment Upcoming Encounters Date Type Department Care Team (Late st Contact Info) Description 11/26/2024 2:00 PM EDT Appointment [facility] [address] [facility] 5th Floor [address] [place] [address] 11/26/2024 2:30 PM EDT Appointment [facility] [address] [place] [address] 11/26/2024 3:20 PM EDT Office Visit [facility] [address] [facility] 5th Floor [address] [place] [address] Elisabet Schuster PA [address] [place] [address] 11/29/2024 2:30 PM EDT Office Visit [place] [address] [place] [address] Oscar Appiah MD [address] [place] [address] [address] [place] [address] documented as of this encounter [...] documented as of this encounter Care Teams Air Twist Operator Relationship Specialty Start Date End Date Asad Victor MD [address] [facility] [place] [address] PCP - General 10/07/22 documented as of this encounter
--- OUTSIDE RECORDS SUMMARY | 2024-11-15 10:17 | XMS_ITS | Encounter Summary ---
Author Organization Healthcare Address [address] [place] [address] Care Team Providers Care Head Up Operator Helper Name Role Phone Asad Victor MD Primary Care Provider + [phone] Encounter Details Date Type Department Care Team (Late st Contact Info) Description 11/05/2024 Orders Only External Location [address] [place] [address] Provider, External Social History Tobacco Use Types [...] drink first t dino in the morning (EYE-PROJECT ESTIMATOR) to steady your nerves or to get rid of a hangover? 0 10/18/2021 CAGE Questionnaire Score 0 022 Utilities Answer Date Recorded In the past 12 months has th e [employer], gas, oil, or water company threatened to [...] Date of Assessment Author No Risk Indicated 11/10/2024 8:00 PM EDT Eber Hanson RN * Question Answer Date of Assessment Author 1. Wish to be (Past 1 Month) No 8:00 PM EDT Eber Hanson RN 2. Non-Specific Active Suici marcelle Thoughts (Past 1 Month) No 11/10/2024 8:00 PM EDT Myke Hanson RN 6. Suicidal Behavior (Lifetime) No 8:00 PM EDT Eber Hanson, CHRISTIAN documented as of this encounter Plan of Treatment Upcoming Encounters Date Type Department Care Team (Late st Contact Info) Description 11/26/2024 2:00 PM EDT Appointment [facility] Lab [address] [facility] 5th Floor [address] [place] [address] 11/26/2024 2:30 PM EDT Appointment [facility] [address] [facility] 5th Floor [address] [place] [address] 11/26/2024 3:20 PM EDT Office Visit [facility] [address] [place] [address] Elisabet Schuster PA [address] [place] [address] 11/29/2024 2:30 PM EDT Office Visit [place] [address] [place] [address] Oscar Appiah MD [address] [place] [address] [address] [place] [address] documented as of this encounter Goals Goal Patient Goal Type Associated Problems Recent Progress Patient-Stated? Author Autogenera louise Goal Care Plan Autogenerated Problem No Ekta Arnett documented as of this encounter Procedures Procedure Name Priority Date/Time Associated Diagnosis Comments CT OUTSIDE IMAGES 11/05/2024 12:50 PM EDT documented in this encounter Results * CT OUTSIDE IMAGES (11/05/2024 12:50 PM EDT) Anatomical Region Laterality Modality Computed Tomogra phy 11/05/2024 12:5 0 PM EDT us External Provider IMG CT PROCEDURES Final Result documented in this encounter Visit Diagnoses Not on filedocumented in this encounter Additional Health Concerns Active Problems Noted Date Diagnosed Date Autogenerated Problem 09/23/2024 Assessment Noted Time A Body Mass Index follow-up plan has been documented for the patient 11/14/2024 3:04 PM EDT documented as of this encounter Care Teams Head Up Operator Helper Relationship Specialty Start Date End Date Asad Victor MD [address] [place] [address] PCP - General 10/07/22 documented as of this encounter
--- OUTSIDE RECORDS SUMMARY | 2024-11-15 10:19 | XMS_ITS | Encounter Summary ---
Author Organization Healthcare Address [address] [place] [address] Care Team Providers Care Collection Correspondent Name Role Phone Asad Victor MD Primary Care Provider + [phone] Encounter Details Date Type Department Care Team [...] drink first t dino in the morning (EYE-PATIENT COMPANION) to steady your nerves or to get [...] Info) Description 11/26/2024 2:00 PM EDT Appointment [facility] V[facility] Lab [address] 5th Floor [address] [place] [address] 11/26/2024 2:30 PM EDT Appointment [facility] [address] 5th Floor [address] [place] [address] 11/26/2024 3:20 PM EDT Office Visit [facility] [address] 5th Floor [address] [place] [address] Elisabet Schuster PA [address] [place] [address] 11/29/2024 2:30 PM EDT Office Visit [facility] [address] [place] [address] Oscar Appiah MD [address] [facility] [address] [place] [address] documented as of this encounter Visit Diagnoses Not on filedocumented in this encounter Additional Health Concerns Assessment Noted Time A Body Mass Index follow-up plan has been documented for the patient 09/22/2024 2:53 PM EDT documented as of this encounter Care Teams Collection Correspondent Relationship Specialty Start Date End Date Asad Victor MD [address] [facility] [place] [address] PCP - General 10/07/22 documented as of this encounter
[2024-11-15] MEDS: MICAFUNGIN SODIUM IV (10:32)
[2024-11-15] MEDS: SODIUM CHLORIDE 0.9% IV (10:32)
[2024-11-15 10:35] VITALS: BP 164/64; PULSE 72; RESP 17; TEMP 36.6; O2SAT 98
[2024-11-15 11:00] VITALS: BP 141/68; PULSE 70
[2024-11-15 11:37] VITALS: BP 144/70; PULSE 76
[2024-11-15 12:00] VITALS: BP 139/76; PULSE 77
[2024-11-15] MEDS: ERTAPENEM SODIUM 1 GM in 0.9 % SODIUM CHLORIDE 50 ML IV (12:00)
[2024-11-15 12:32] VITALS: BP 143/62; PULSE 71
[2024-11-15] MEDS: SODIUM CHLORIDE 0.9% 10ML FLUSH SYRINGE 10 ML IV (12:35)
== END 2024-11-15 12:40 | disposition home or self-care (01) ==
PROVIDERS: PCP Family Medicine
DX: T14.8XXA Other injury of unspecified body region, initial encounter (principal); L08.9 Local infection of the skin and subcutaneous tissue, unspecified; X58.XXXA Exposure to other specified factors, initial encounter; Y93.9 Activity, unspecified; Y92.9 Unspecified place or not applicable
CPT/HCPCS: 96365; 96367; J1335; J2248

== ENCOUNTER 2024-11-16 08:13 | Outpatient (CLI) | payer MEDICARE, OTHER, SELFPAY ==
--- OUTSIDE RECORDS SUMMARY | 2024-09-20 21:25 | XMS_ITS | Encounter Summary ---
Author Organization [facility] Address [address] [id number] Care Team Providers Care Boiler Tester Name Role Phone Asad Victor MD Primary Care Provider + [phone] Reason for Visit * Auth/Cert (Routine) Specialty Diagnoses / Procedures Referred By Contac t Referred To Contact Diagnoses Pseudoaneurysm of left femoral artery (CMS/HCC) PSUEDO ANEURYSM Nathaly Nowak MD [address] [address] Phone: tel: fax: [facility] A Emergency Department [address] [place] [address] Phone: tel: Referral ID Status Reason Start Date Expiration Date Visits Re quested Visits Authorized [id number] 1 1 Encounter Details Date Type Department Care Team (Latest Contact Info) Description 09/20/2024 9:25 PM EDT - 09/22/2024 4:00 PM EDT Hospital Encounter [facility] H Inpatient [address] [place] [address] Robbie Braxton MD [address] [place] [address] Nathaly Nowak MD [id number] [place] [address] Pseudoaneurysm of left femoral artery [...] drink first t dino in the morning (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 Questions: Call [phone] during business hours on week or call [facility]'s after hours at [phone] to speak with a resident oracle applications developer for Vascular Surgery after 5pm or on [...] Carmona with any questions or concerns at [phone]. It is important that you get your [...] HTN, RLS who presented to [facility] with a large left common femoral artery [...] discharge instructions. No distress noted. 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 Awaiting his ride to arrive. Patient states his discharge ride is about 40 minutes away. * [facility] - Melecio Vega RN - 09/22/2024 2:52 PM EDT Images from the original note were not included. [id number] Peripheral Artery Disease (PAD) Peripheral artery disease [...] cause. Last Reviewed Date: 2024 00:00:00 ?? [id number] The [employer]. All rights reserved. This information is not intended as a substitute for professional medical care. Always follow your healthcare professional's instructions. * [facility] Melecio Vega RN - 09/22/2024 2:52 PM EDT Images from the original note were not included. [id number] Taking Aspirin for Atherosclerosis Aspirin is a [...] This includes: ? All prescription medicines ? Nleg-ytn-wcmilme medicines ? Herbs, vitamins, and other supplements [...] pain Last Reviewed Date: 2022 00:00:00 ?? [id number] [employer]. All rights reserved. This information is not [...] name and Address: Asad Victor MD (Inactive) [address] [place] [address] / [facility] [address] Referring provider name and address: Timothy Marques PA [address] [place] [address] Chief Concern, Brief History of Present Illness, and Hospital Course Mono Bobby is a 64 y.o. male with PMHx notable for COPD, CAD s/p PCI with pacemaker on Xarelto, T2DM, HLD, HTN, RLS who presented to [facility] with a large left common femoral artery [...] Your Medications These medications were sent to [facility] - [place], [place] - [address] [facility] [address] oxyCODONE 5 MG immediate release tablet Discharge [...] soap and water daily. Pat to dry. [place]/ sutures will be removed at postoperative follow [...] to schedule you next surgery. Questions: Call [phone] during business hours on weekdays or call [facility]'s after hours at [phone] to speak with a resident oracle applications developer for Vascular Surgery after 5pm or on [...] Carmona with any questions or concerns at [phone]. It is important that you get your [...] and Manage Fall Risk Flowsheets (Taken 09/22/2024 4976) Safety Promotion/Fall Prevention: activity supervised assistive device/personal [...] Regular diet - Repeat duplex 09/22 - [facility] - consider IO cath if sensation [...] from the original note were not included. [facility] Department of Surgery Division of Vascular Surgery Surgery Progress Note 09/21/24 Mono Bobby Subjective Subjective: HPI Mono Bobby is a 64 y.o. male with PMHx notable for COPD, CAD s/p PCI with pacemaker on Xarelto, T2DM, HLD, HTN, RLS who presented to 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 09/21: Thrombin injection of left common femoral artery pseudoaneurysm Interval: NAEON. He reports feeling well. Still having some groin pain. Duplex confirmed PSA. Discussed treatment with thrombin injection and pt would like to proceed. AF HDS RA No I/O Edited by: Anthony Keenan MD at 09/21/2024 3078 Review of Systems: Relevant review of systems [...] HTN, RLS who presented to 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 Duplex today confirmed it was a pseudoaneurysm. Thrombin injection performed today. He tolerated the procedure well. POC later tonight. Plan: [ ] Post op check at 1999 - Continue strict bedrest - Regular diet - Duplex 09/21: showed CARPENTER pseudoaneurysm - Repeat duplex 09/22 - [facility] Edited by: Anthony Keenan MD at 09/21/2024 9445 Dispo: Continue Current Level of Care Philipp Keenan MD General Surgery, PGY 1 Pager: [phone] Cosigned by Terrell Gautam MD at 09/23/2024 [...] femoral artery pseudoaneurysm Attending Surgeon(s): Terrell Gautam Clerical Aide(s): Jerry Holcomb Anesthesia: local ASA: 3 Blood [...] pseudoaneurysm sac is far away from the [place] artery as possible. Very slowly 0.2 cc [...] from the original note were not included. [facility] Department of Surgery Division of Vascular Surgery [...] HLD, HTN, RLS who presented to the [facility] on 09/20/2024 as a transfer from an [...] At that time, the patient presented to [facility] and underwent an updated CTA which demonstrated concern for a left common femoral artery pseudo aneurysm. He was transferred to the [facility] for a higher level of care. On [...] MINUTES. IF NO RELIEF AFTER 3 DOSES [id number]/GO TO ER 11/02/21 Darby Camara MD pravastatin [...] HTN, RLS who presented to [facility] with a large left common femoral artery [...] ongoing surgical planning. Plan: - Admit to [facility] - Strict bedrest - NPO, mIVF - Will discuss surgical options in the morning Dispo: Admit to [facility] CODE STATUS: full code This Consult, Assessment, and Plan has been discussed with Dr. Nowak, Attending Physician Shaila Lord [1] Past Medical History: Diagnosis Date Arthritis Old myocardial infarction History of myocardial infarction [2] No Known Allergies [3] Past Surgical History: Procedure Laterality Date ANKLE SURGERY Right CAROTID ENDARTERECTOMY N/A Endarterectomy Carotid Artery from [facility] CORONARY ANGIOPLASTY Left Coronary Angiography With Concomitant Left Heart Catheterization from [facility] CORONARY ARTERY BYPASS GRAFT N/A CABG from [facility] ELBOW SURGERY Right OTHER SURGICAL HISTORY N/A Reported Prior Surgical / Procedural History from [facility] [4] Family History Problem Relation Name Age [...] MINUTES. IF NO RELIEF AFTER 3 DOSES [id number]/GO TO ER pravastatin (Pravachol) 80 MG tablet [...] accompanied by pain [facility]. In the emergency department they obtained a CTA with runoff of the lower extremities which found a left-sided femoral pseudoaneurysm. The patient was transferred here for higher level of care. He has not had any lower extremity pallor, pain, weakness, or sensory changes. 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 used: No Patient History Past Medical History[1] [...] Vascular Surgery Provider: (Not yet assigned) Ordered NESTOR TYLER 09/20/242223 CMP STAT Final result NESTOR [...] CAROTID ENDARTERECTOMY N/A Endarterectomy Carotid Artery from [facility] CORONARY ANGIOPLASTY Left Coronary Angiography With Concomitant Left Heart Catheterization from [facility] CORONARY ARTERY BYPASS GRAFT N/A CABG from [facility] ELBOW SURGERY Right OTHER SURGICAL HISTORY N/A Reported Prior Surgical / Procedural History from [facility] [3] Family History Problem Relation Name Age [...] - 09/20/2024 9:22 PM EDT Arrived from [facility]4 pt transferred from c/o left groin pain pt had stent x2 on 09/12 went to cardiology and was told to go to hospital. documented in this encounter Plan of Treatment Upcoming Encounters Date Type Department Care Team (Late st Contact Info) Description 11/26/2024 2:00 PM EDT Appointment [facility] Vascular Lab [address] [place] [address] 11/26/2024 2:30 PM EDT Appointment [facility] Vascular Lab [address] [place] [address] 11/26/2024 3:20 PM EDT Office Visit [facility] [address] [place] [address] Elisabet Schuster PA [address] [place] [address] 11/29/2024 2:30 PM EDT Office Visit [facility] [address] [place] [address] Oscar Appiah MD [address] [place] [address] documented as of this encounter Procedures Procedure [...] Comment 09/22/2024 11:11 AM EDT HEALTHCARE LAB Head Machinist ID Zena Rios 025 11:11 AM EDT HEALTHCARE LAB Device ID [id number] 09/22/2024 11:11 AM EDT HEALTHCARE LAB Specimen Type POC Capillary 09/22/2024 11:11 AM EDT HEALTHCARE LAB Blood Capillary blood specimen / Unknown 09/22/2024 11:06 AM EDT 09/22/2024 11:11 AM EDT us Nathaly Nowak MD LAB POINT OF CARE TE ST DOCKED DEVICE UNSOLICITED RESULTS Final Result Performing Organization Address City/State/[facility] Co de Phone Number HEALTHCARE LAB [address] [place] [address] * VAS US Arterial Duplex Lower Extremity [...] 7:15 PM EDT CLINICAL INDICATION: s/p L CARPENTER pseudoaneurysm injection TECHNIQUE: Non-invasive, real time duplex [...] sac. The following flow velocities were obtained: CARPENTER: 114 cm/s SFA: 0 cm/s PFA: 278 cm/s Popliteal A: 41 cm/s SAAS ARCHITECT distal: 43 cm/s DPA: 67 cm/s Pseudoaneurysm sac: 0 cm/s Procedure Note Neil Isaac MD - 09/22/2024 CLINICAL INDICATION: s/p L CARPENTER pseudoaneurysm injection TECHNIQUE: Non-invasive, real time duplex exam of the lower extremity arterialcirculation with Doppler ultrasonic waveform and spectral analysis wasperformed. COMPARISON: Post pseudoaneurysm thrombin injection arterial duplex /28/2025; Following thrombin injection of the left common femoral arterypseudoaneurysm, no active flow is noted. Study suggests successfulthrombin injection therapy FINDINGS: Left: Following thrombin injection, an echogenic thrombus is noted within thepseudoaneurysm sac. Color and pulsed Doppler analysis demonstrates anabsence of flow within the pseudoaneurysm sac. The following flowvelocities were obtained: CARPENTER: 114 cm/s SFA: 0 cm/s PFA: 278 cm/s Popliteal A: 41 cm/s SAAS ARCHITECT distal: 43 cm/s DPA: 67 cm/s Pseudoaneurysm [...] Comment 09/22/2024 7:22 AM EDT HEALTHCARE LAB Head Machinist ID Zena Rios 025 7:22 AM EDT HEALTHCARE LAB Device ID [id number] 09/22/2024 7:22 AM EDT HEALTHCARE LAB Specimen Type POC Capillary 09/22/2024 7:[address] [facility] Blood Capillary blood specimen / Unknown 09/22/2024 7:19 AM EDT 09/22/2024 7:22 AM EDT Nathaly Nowak MD LAB POINT OF CARE TE ST DOCKED DEVICE UNSOLICITED RESULTS Final Result HEALTHCARE LAB [address] [place] [address] * Magnesium (09/22/2024 3:49 AM EDT) Magnesium, Plasma 2.1 1.9 - 2.4 mg/dL 09/22/2024 4:49 AM EDT [facility] Blood Venous blood specimen / Unknown Venipuncture / Unknown 09/22/2024 3:49 AM EDT 09/22/2024 4:12 AM EDT Nathaly Nowak MD LAB BLOOD ORDERABLES Final Resu lt [facility] [address] [place] [address] * Phosphorus (09/22/2024 3:49 AM EDT) Phosphorus, Plasma 2.9 2.5 - 4.5 mg/dL 09/22/2024 4:49 AM EDT [facility] Blood Venous blood specimen / Unknown Venipuncture / Unknown 09/22/2024 3:49 AM EDT 09/22/2024 4:12 AM EDT us Nathaly Nowak MD LAB BLOOD ORDERABLES Final Resu lt Performing Organization Address [facility]/ZIP Co de Phone Number [facility] [address] [place] [address] * (ABNORMAL) Basic metabolic panel (09/22/2024 3:49 AM EDT) Pathologist [facility] Glucose, Plasma 132(H) 74 - 99 mg/dL 09/22/2024 4:49 AM EDT [facility] BUN, Plasma 15 8 - 23 mg/dL 09/22/2024 4:49 AM EDT [facility] Creatinine, Plasma 0.78 0.70 - 1.20 mg/dL 09/22/2024 4:49 AM EDT [facility] BUN/Creatinine Ratio 19 09/22/2024 4:49 AM EDT [facility] Sodium, Plasma 137 136 - 145 mmol/L 09/22/2024 4:49 AM EDT [facility] Potassium, Plasma 4.5 3.6 - 4.9 mmol/L 09/22/2024 4:49 AM EDT [facility] Chloride, Plasma 104 97 - 107 mmol/L 09/22/2024 4:49 AM EDT [facility] CO2, Plasma 24 22 - 29 mmol/L 09/22/2024 4:49 AM EDT [facility] Anion Gap 9 6 - 16 mmol/L 09/22/2024 4:49 AM EDT [facility] Total Calcium, Plasma 9.2 8.9 - 10.2 mg/dL 09/22/2024 4:49 AM EDT [facility] eGFRcr 99.0 mL/min/1.7 3m*2 09/22/2024 4:49 AM EDT [facility] Comment:Reported eGFRcr in m L/min/1.73m2 is based the CKD-EPI 2020 equation that does not use a race coefficient. Blood Venous blood specimen / Unknown Venipuncture / Unknown 09/22/2024 3:49 AM EDT 09/22/2024 4:12 AM EDT us Nathaly Nowak MD LAB BLOOD ORDERABLES Final Resu lt [facility] [address] [place] [address] * (ABNORMAL) CBC (09/22/2024 3:49 AM EDT) WBC Count 11.68(H) 3.70 - 10.30 10*3/uL LAB HEMATOLOGY METHOD 09/22/2024 4:26 AM EDT [facility] RBC Count 2.89(L) 4.60 - 6.10 10*6/uL LAB HEMATOLOGY METHOD 09/22/2024 4:26 AM EDT [facility] HGB 8.9(L) 13.7 - 17.5 g/dL LAB HEMATOLOGY METHOD 09/22/2024 4:26 AM EDT [facility] HCT 26.7(L) 40.0 - 51.0 % LAB HEMATOLOGY METHOD 09/22/2024 4:26 AM EDT [facility] Platelet Count 454(H) 155 - 369 10*3/uL LAB HEMATOLOGY METHOD 09/22/2024 4:26 AM EDT [facility] MCV 92 79 - 98 fL LAB HEMATOLOGY METHOD 09/22/2024 4:26 AM EDT [facility] MCH 30.8 26.0 - 32.0 pg LAB HEMATOLOGY METHOD 09/22/2024 4:26 AM EDT [facility] MCHC 33.3 30.7 - 35.5 g/dL LAB HEMATOLOGY METHOD 09/22/2024 4:26 AM EDT [facility] RDW 13.6 11.5 - 14.5 % LAB HEMATOLOGY METHOD 09/22/2024 4:26 AM EDT [facility] MPV 8.8 8.8 - 12.5 fL LAB HEMATOLOGY METHOD 09/22/2024 4:26 AM EDT [facility] nRBC 0.0 <=0.0 per 100 WBCs LAB HEMATOLOGY METHOD 09/22/2024 4:26 AM EDT [facility] Blood Venous blood specimen / Unknown Venipuncture / Unknown 09/22/2024 3:49 AM EDT 09/22/2024 4:14 AM EDT us Nathaly Nowak MD LAB BLOOD ORDERABLES Final Resu lt Performing Organization Address [facility] Co de Phone Number [facility] [address] [place] [address] * (ABNORMAL) POCT glucose meter (09/21/2024 8:45 [...] 09/21/2024 8:47 PM EDT [facility] Head Machinist ID Joy Reich 025 8:47 PM EDT HEALTHCARE LAB Device ID [id number] 09/21/2024 8:47 PM EDT HEALTHCARE LAB Specimen Type POC Capillary 09/21/2024 8:[address] [facility] Blood Capillary blood specimen / Unknown 09/21/2024 8:45 PM EDT 09/21/2024 8:47 PM EDT us Nathaly Nowak MD LAB POINT OF CARE TE ST DOCKED DEVICE UNSOLICITED RESULTS Final Result Performing Organization Address City/[facility]/ZIP Co de Phone Number [facility] [address] [place] [address] * (ABNORMAL) POCT glucose meter (09/21/2024 5:09 [...] Comment 09/21/2024 5:11 PM EDT HEALTHCARE LAB Head Machinist ID Jojo Lange 025 5:11 PM EDT HEALTHCARE LAB Device ID [id number] 09/21/2024 5:11 PM EDT HEALTHCARE LAB Specimen Type POC Capillary 09/21/2024 5:11 PM EDT HEALTHCARE LAB Blood Capillary blood specimen / Unknown 09/21/2024 5:09 PM EDT 09/21/2024 5:11 PM EDT us Nathaly Nowak MD LAB POINT OF CARE TE ST DOCKED DEVICE UNSOLICITED RESULTS Final Result [facility]ARE LAB [address] [place] [address] * VAS US Arterial Duplex Lower Extremity [...] 09/21/2024 7:35 PM EDT CLINICAL INDICATION: s/p CARPENTER pseudoaneurysm injection TECHNIQUE: Non-invasive, real time duplex exam of the lower extremity arterial circulation with Doppler ultrasonic waveform and spectral analysis was performed. COMPARISON: None. FINDINGS: Left: Following thrombin injection, an echogenic thrombus is noted within the pseudoaneurysm sac. Color and pulsed Doppler analysis demonstrates an absence of flow within the pseudoaneurysm sac. The following flow velocities were obtained: CARPENTER: 55 cm/s SFA: 0 cm/s Popliteal A: 51 cm/s SAAS ARCHITECT distal: 35 cm/s DPA: 61 cm/s Pseudoaneurysm sac: 0 cm/s Procedure Note Neil Isaac MD - 09/21/2024 CLINICAL INDICATION: s/p CARPENTER pseudoaneurysm injection TECHNIQUE: Non-invasive, real time duplex exam of the lower extremity arterialcirculation with Doppler ultrasonic waveform and spectral analysis wasperformed. COMPARISON: None. FINDINGS: Left: Following thrombin injection, an echogenic thrombus is noted within thepseudoaneurysm sac. Color and pulsed Doppler analysis demonstrates anabsence of flow within the pseudoaneurysm sac. The following flowvelocities were obtained: CARPENTER: 55 cm/s SFA: 0 cm/s Popliteal A: 51 cm/s SAAS ARCHITECT distal: 35 cm/s DPA: 61 cm/s Pseudoaneurysm [...] POCT glucose meter (09/21/2024 1:04 PM EDT) [facility] POCT Glucose 177(H) 74 - 99 mg/dL [...] Comment 09/21/2024 1:09 PM EDT HEALTHCARE LAB Head Machinist ID Ruth Solo 025 1:09 PM EDT HEALTHCARE LAB Device ID [id number] 09/21/2024 1:09 PM EDT HEALTHCARE LAB Specimen Type POC Capillary 09/21/2024 1:09 PM EDT [facility]ARE LAB Blood Capillary blood specimen / Unknown 09/21/2024 1:04 PM EDT 09/21/2024 1:09 PM EDT us Nathaly Nowak MD LAB POINT OF CARE TE ST DOCKED DEVICE UNSOLICITED RESULTS Final Result Performing Organization Address City/State/[facility] Co de Phone Number [facility] [address] [place] [address] * (ABNORMAL) POCT glucose meter (09/21/2024 12:24 PM EDT) [facility] POCT Glucose 153(H) 74 - 99 mg/dL [...] 09/21/2024 12:26 PM EDT [facility] Head Machinist ID Ruth Solo 025 12:26 PM EDT [facility] Device ID [id number] 09/21/2024 12:26 PM EDT HEALTHCARE LAB Specimen Type POC Capillary 09/21/2024 12:26 PM EDT HEALTH[facility]ARE LAB Blood Capillary blood specimen / Unknown 09/21/2024 12:24 PM EDT 09/21/2024 12:26 PM EDT us Nathaly Nowak MD LAB POINT OF CARE TE ST DOCKED DEVICE UNSOLICITED RESULTS Final Result [facility] [address] [place] [address] * VAS US Arterial Duplex Lower Extremity [...] neck. The following flow velocities were obtained: CARPENTER: 93 cm/s SFA: 0 cm/s Popliteal A: 36 cm/s SAAS ARCHITECT distal: 34 cm/s DPA: 59 cm/s Pseudoaneurysm [...] neck. The following flow velocities were obtained: CARPENTER: 93 cm/s SFA: 0 cm/s Popliteal A: 36 cm/s SAAS ARCHITECT distal: 34 cm/s DPA: 59 cm/s Pseudoaneurysm [...] glucose meter (09/21/2024 7:55 AM EDT) Pathologist [facility] POCT Glucose 130(H) 74 - 99 mg/dL [...] for testing. Comment 09/21/2024 8:[address] [facility] Head Machinist ID Ruth Solo 025 8:[address] [facility] Device ID [id number] 09/21/2024 8:[address] [facility] Specimen Type POC Capillary 09/21/2024 8:[address] [facility] Blood Capillary blood specimen / Unknown 09/21/2024 7:55 AM EDT 09/21/2024 8:01 AM EDT Nathaly Nowak MD LAB POINT OF CARE TE ST DOCKED DEVICE UNSOLICITED RESULTS Final Result [facility] [address] [place] [address] * (ABNORMAL) POCT glucose meter (09/21/2024 6:06 AM EDT) Pathologist [facility] POCT Glucose 153(H) 74 - 99 [...] Comment 09/21/2024 6:09 AM EDT HEALTHCARE LAB Head Machinist ID Yuan Griffin 09/22/19 6:09 AM EDT HEALTHCARE LAB Device ID [id number] 09/21/2024 6:09 AM EDT HEALTHCARE LAB Specimen Type POC Capillary 09/21/2024 6:09 AM EDT [facility]ALTH[facility]ARE [facility] Blood Capillary blood specimen / Unknown 09/21/2024 6:06 AM EDT 09/21/2024 6:09 AM EDT Nathaly Nowak MD LAB POINT OF CARE TE ST DOCKED DEVICE UNSOLICITED RESULTS Final Result Performing Organization Address City/[facility] Co de Phone Number HEALTHCARE LAB [address] [place] [address] * (ABNORMAL) POCT glucose meter (09/21/2024 2:27 AM EDT) [facility] POCT Glucose 194(H) 74 - 99 mg/dL [...] Comment 09/21/2024 2:34 AM EDT HEALTHCARE LAB Head Machinist ID Ana Maria Corea 09/21/2024 2:34 AM EDT HEALTHCARE LAB Device ID [id number] 09/21/2024 2:34 AM EDT HEALTHCARE LAB Specimen Type POC Capillary 09/21/2024 2:34 AM EDT [facility]ALTH[facility]ARE LAB Blood Capillary blood specimen / Unknown 09/21/2024 2:27 AM EDT 09/21/2024 2:34 AM EDT Nathaly Nowak MD LAB POINT OF CARE TE ST DOCKED DEVICE UNSOLICITED RESULTS Final Result Performing Organization Address City/[facility]/ZIP Co de Phone Number HEALTHCARE LAB [address] [place] [address] * ECG Adult (09/21/2024 2:00 AM EDT) [facility] EKG DIAGNOSIS CLASS Abnormal MUSE ECG Ventricular Rate 85 BPM MUSE ECG Atrial Rate 85 BPM MUSE ECG ND Interval 146 ms MUSE ECG QRSD Interval 128 ms MUSE ECG QT Interval 390 ms MUSE ECG QTC Interval 464 ms MUSE ECG P [place] 52 degrees MUSE ECG R [place] 263 degrees MUSE ECG T Wave [place] 57 degrees MUSE ECG Diagnosis Atrial-sensed ventricular-pace d rhythm MUSE ECG Diagnosis Biventricular pacemaker detected MUSE ECG Diagnosis MUSE ECG Diagnosis MUSE ECG Diagnosis Confirmed by Sana Ruth ([id number]) on 09/22/2024 11:34:36 PM MUSE ECG 09/21/2024 2:00 AM EDT 09/22/2024 11:34 PM EDT Nathaly Nowak MD ECG ORDERABLES Final Result MUSE ECG * ED HIV 1/2 Antibody/Antigen Screen w/Reflex to HIV 1/2 Differentiation (09/20/2024 10:33 PM EDT) [facility] HIV 1 & 2 Antibody/Antigen Screen Non Reactive Non Reactive 09/20/2024 11:39 PM EDT [facility] Comment:Screening for HIV 1 & 2 antibodies, and P24 antigen is NONREACTIVE. No confirmatory testing is required. Blood Venous blood specimen / Unknown Venipuncture / Unknown 09/20/2024 10:33 PM EDT 09/20/2024 10:54 PM EDT us Giorgi Perkins MD LAB BLOOD ORDERABLES Final Result [facility] [address] [place] [address] * Hepatitis C Antibody - ED (09/20/2024 10:33 PM EDT) [facility] Hepatitis C Antibody Negative Negative 09/20/2024 11:39 PM EDT [facility] Blood Venous blood specimen / Unknown Venipuncture / Unknown 09/20/2024 10:33 PM EDT 09/20/2024 10:53 PM EDT us Giorgi Perkins MD LAB BLOOD ORDERABLES Final Result [facility] [address] [place] [address] * APTT (09/20/2024 10:33 PM EDT) aPTT 28 25 - 35 sec LAB COAGULATION METHOD 09/21/2024 12:19 AM EDT [facility] Blood Venous blood specimen / Unknown Venipuncture / Unknown 09/20/2024 10:33 PM EDT 09/20/2024 10:42 PM EDT us Giorgi Perkins MD LAB BLOOD ORDERABLES Final Result Performing Organization Address [facility] Co de Phone Number [facility] [address] [place] [address] * PT-INR (09/20/2024 10:33 PM EDT) Prothrombin Time 14.0 12.0 - 14.3 sec LAB COAGULATION METHOD 09/21/2024 12:19 AM EDT [facility] INR 1.1 0.9 - 1.1 LAB COAGULATION METHOD 09/21/2024 12:19 AM EDT [facility] Blood Venous blood specimen / Unknown Venipuncture / Unknown 09/20/2024 10:33 PM EDT 09/20/2024 10:42 PM EDT Narrative [facility] - 09/21/2024 12:19 AM EDT OPTIMAL INR RANGES FOR PATIENT ON ORAL ANTICOAGULANT THERAPY Prevention of venous thromboembolism INR 2.0 to 3.0 In patients with heart disease: Atrial fibrillation INR 2.0 to 3.0 Valvular heart disease INR 2.0 to 3.0 Tissue heart valves INR 2.0 to 3.0 Mechanical prosthetic valves INR 2.5 to 3.5 Prevention of recurrent LA INR 2.5 to 3.5 us Giorgi Perkins MD LAB BLOOD ORDERABLES Final Result [facility] [address] [place] [address] * (ABNORMAL) CBC w/diff (09/20/2024 10:33 PM EDT) WBC Count 13.38(H) 3.70 - 10.30 10*3/uL LAB HEMATOLOGY METHOD 09/20/2024 11:00 PM EDT [facility] RBC Count 2.91(L) 4.60 - 6.10 10*6/uL LAB HEMATOLOGY METHOD 09/20/2024 11:00 PM EDT [facility] HGB 9.0(L) 13.7 - 17.5 g/dL LAB HEMATOLOGY METHOD 09/20/2024 11:00 PM EDT [facility] HCT 27.2(L) 40.0 - 51.0 % LAB HEMATOLOGY METHOD 09/20/2024 11:00 PM EDT [facility] Platelet Count 407(H) 155 - 369 10*3/uL LAB HEMATOLOGY METHOD 09/20/2024 11:00 PM EDT [facility] MCV 94 79 - 98 fL LAB HEMATOLOGY METHOD 09/20/2024 11:00 PM EDT [facility] MCH 30.9 26.0 - 32.0 pg LAB HEMATOLOGY METHOD 09/20/2024 11:00 PM EDT [facility] MCHC 33.1 30.7 - 35.5 g/dL LAB HEMATOLOGY METHOD 09/20/2024 11:00 PM EDT [facility] RDW 13.6 11.5 - 14.5 % LAB HEMATOLOGY METHOD 09/20/2024 11:00 PM EDT [facility] MPV 9.0 8.8 - 12.5 fL LAB HEMATOLOGY METHOD 09/20/2024 11:00 PM EDT [facility] nRBC 0.0 <=0.0 per 100 WBCs LAB HEMATOLOGY METHOD 09/20/2024 11:00 PM EDT [facility] Differential Type Automated LAB HEMATOLOGY METHOD 09/20/2024 11:00 PM EDT [facility] Neutrophils % 77 % LAB HEMATOLOGY METHOD 09/20/2024 11:00 PM EDT [facility] Lymphocytes % 13 % LAB HEMATOLOGY METHOD 09/20/2024 11:00 PM EDT [facility] Monocytes % 8 % LAB HEMATOLOGY METHOD 09/20/2024 11:00 PM EDT [facility] Eosinophils % 1 % LAB HEMATOLOGY METHOD 09/20/2024 11:00 PM EDT [facility] Basophils % 0 % LAB HEMATOLOGY METHOD 09/20/2024 11:00 PM EDT [facility] Immature Granulocytes % 1 % LAB HEMATOLOGY METHOD 09/20/2024 11:00 PM EDT [facility] Neutrophils Absolute 10.28(H) 1.60 - 6.10 10*3/uL LAB HEMATOLOGY METHOD 09/20/2024 11:00 PM EDT [facility] Lymphocytes Absolute 1.67 1.20 - 3.90 10*3/uL LAB HEMATOLOGY METHOD 09/20/2024 11:00 PM EDT [facility] Monocytes Absolute 1.12(H) 0.30 - 0.90 10*3/uL LAB HEMATOLOGY METHOD 09/20/2024 11:00 PM EDT [facility] Eosinophils Absolute 0.14 0.00 - 0.50 10*3/uL LAB HEMATOLOGY METHOD 09/20/2024 11:00 PM EDT [facility] Basophils Absolute 0.05 0.00 - 0.10 10*3/uL LAB HEMATOLOGY METHOD 09/20/2024 11:00 PM EDT [facility] Immature Granulocytes Absolute 0.12(H) 0.00 - 0.06 10*3/uL LAB HEMATOLOGY METHOD 09/20/2024 11:00 PM EDT [facility] Blood Venous blood specimen / Unknown Venipuncture / Unknown 09/20/2024 10:33 PM EDT 09/20/2024 10:42 PM EDT Narrative [facility] - 09/20/2024 11:00 PM EDT Therapeutic decision making should be based on absolute values, rather than percentages. us Giorgi Perkins MD LAB BLOOD ORDERABLES Final Result [facility] [address] [place] [address] * (ABNORMAL) CMP (09/20/2024 10:33 PM EDT) Glucose, Plasma 170(H) 74 - 99 mg/dL 09/20/2024 11:03 PM EDT [facility] BUN, Plasma 27(H) 8 - 23 mg/dL 09/20/2024 11:03 PM EDT [facility] Creatinine, Plasma 0.93 0.70 - 1.20 mg/dL 09/20/2024 11:03 PM EDT [facility] BUN/Creatinine Ratio 29 09/20/2024 11:03 PM EDT [facility] Sodium, Plasma 134(L) 136 - 145 mmol/L 09/20/2024 11:03 PM EDT [facility] Potassium, Plasma 5.0(H) 3.6 - 4.9 mmol/L 09/20/2024 11:03 PM EDT [facility] Chloride, Plasma 101 97 - 107 mmol/L 09/20/2024 11:03 PM EDT [facility] CO2, Plasma 22 22 - 29 mmol/L 09/20/2024 11:03 PM EDT [facility] Anion Gap 11 6 - 16 mmol/L 09/20/2024 11:03 PM EDT [facility] Total Calcium, Plasma 9.1 8.9 - 10.2 mg/dL 09/20/2024 11:03 PM EDT [facility] Total Protein 6.6 6.3 - 7.9 g/dL 09/20/2024 11:03 PM EDT [facility] Albumin, Plasma 3.9 3.5 - 5.2 g/dL 09/20/2024 11:03 PM EDT [facility] AST, Plasma 11 10 - 50 U/L 09/20/2024 11:03 PM EDT [facility] ALT, Plasma 16 10 - 50 U/L 09/20/2024 11:03 PM EDT [facility] Alkaline Phosphatase, Plasma 132(H) 40 - 115 U/L 09/20/2024 11:03 PM EDT [facility] Total Bilirubin, Plasma 0.6 0.2 - 1.1 mg/dL 09/20/2024 11:03 PM EDT [facility] eGFRcr 91.1 mL/min/1.7 3m*2 09/20/2024 11:03 PM EDT [facility] Comment:Reported eGFRcr in m L/min/1.73m2 is based the CKD-EPI 2020 equation that does not use a race coefficient. Blood Venous blood specimen / Unknown Venipuncture / Unknown 09/20/2024 10:33 PM EDT 09/20/2024 10:42 PM EDT Giorgi Perkins MD LAB BLOOD ORDERABLES Final Result [facility] [address] [place] [address] documented in this encounter Visit Diagnoses Diagnosis [...] Cristiane Rivas RN - Comment: given after shift boss assesment) lisinopril tablet 10 mg 10 mg, [...] documented as of this encounter Care Teams Boiler Tester Relationship Specialty Start Date End Date Asad Victor MD [address] [place] [address] PCP - General 10/07/22 documented as of this encounter
--- OUTSIDE RECORDS SUMMARY | 2024-10-11 10:15 | XMS_ITS | Encounter Summary ---
Author Organization [facility] Address [address] [place] [address] Care Team Providers Care Switchgear Repairer Name Role Phone Asad Victor MD Primary Care Provider + [phone] Encounter Details Date Type Department Care Team (Latest Contact Info) Description 10/11/2024 10:15 AM EDT Pre-Admission Testing [facility] Pre-op Clinic [address], [address] [place] [phone] Preop testing (Primary Dx) Anesthesia Record Procedure [...] Hand; Site Prep: Chlorhexidine ; Local Anesth: [place]; Technique: Anatomical landmarks; Inserted by: CHRISTIAN Acuna; [...] G; Orientation: Right; Location: Axillary; Inserted by: COMBAT SYSTEMS OPERATOR; Securement: Sutured; Patient Tolerance: Tolerated well; [...] drink first t dino in the morning (EYE-GI TECH) to steady your nerves or to get [...] T2DM, HLD, HTN, RLS who presented to [facility] with a large left common femoral [...] CEA 2016 + 3rd degree AV block TILE TRIMMER-P placed 08/2023 for Wenkeback with 11 sec pause + HLD + HTN - controlled + PAD 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 S/P intravascular lithotripsy of left common and external iliac artery with 2 continuous balloon mounted bare metal stents 09/12/24 on Xarelto and ASA + WILHELM occ, low energy for > year - had work-up recently in [place] (will get records) + peripheral edema LLE [...] ENDARTERECTOMY N/A 2017 Endarterectomy Carotid Artery from [facility] CORONARY ANGIOPLASTY Left Coronary Angiography With Concomitant Left Heart Catheterization from [facility] CORONARY ARTERY BYPASS GRAFT N/A 2018 3V ELBOW SURGERY Right OTHER SURGICAL HISTORY N/A Reported Prior Surgical / Procedural History from [facility] [5] No Known Allergies [6] Current Outpatient [...] card, photo ID, along with power of immigration attorney, guardianship or advanced directives if applicable [...] Info) Description 11/26/2024 2:00 PM EDT Appointment [facility] Lab [address] [facility] [address] Floor [address] [place] [address] 11/26/2024 2:30 PM EDT Appointment [facility] [address] [facility] 5th Floor [address] [place] [address] 11/26/2024 3:20 PM EDT Office Visit [facility] [address] [place] [address] Elisabet Schuster PA [address] [place] [address] 11/29/2024 2:30 PM EDT Office Visit [facility] [address] [place] [address] Oscar Appiah MD [address] [facility] [address] [place] [address] documented as of this encounter [...] Modality Other Narrative 10/17/2024 9:50 AM EDT [facility]: Pre-operative CIED Report Assessment and Sara-Procedural Reommendations: Name: Mono Bobby Date: 10/17/2024 : 1960 Age: 64 y.o. Patient has a Director Speech: Berger TILE TRIMMER-PM Remaining battery longevity adequate. Lead integrity test [...] recommendations. Supporting reports can be found in [employer] media file. us Emelina DOSHI CV IMPLANTABLE [...] documented as of this encounter Care Teams Switchgear Repairer Relationship Specialty Start Date End Date Asad Victor MD [address] [place] [address] PCP - General 10/07/22 documented as of this encounter
--- OUTSIDE RECORDS SUMMARY | 2024-10-16 14:45 | XMS_ITS | Encounter Summary ---
Author Organization Healthcare Address [address] [place] [address] Care Team Providers Care Larry Operator Name Role Phone Asad Victor MD Primary Care Provider + [phone] Encounter Details Date Type Department Care Team (Latest Contact Info) Description 10/16/2024 2:45 PM EDT - 10/16/2024 11:59 PM EDT Hospital Encounter Cardiac Imaging [address] [place] [address] Discharge Disposition: Home or Self Care Social [...] drink first t dino in the morning (EYE-WHITE SIDEWALL TIRE BUFFER) to steady your nerves or to get [...] Info) Description 11/26/2024 2:00 PM EDT Appointment [facility] [address] [place] [address] 11/26/2024 2:30 PM EDT Appointment [facility] [address] [place] [address] 11/26/2024 3:20 PM EDT Office Visit [facility] [address] [place] [address] Elisabet Schuster PA [address] [facility] [address] [place] [address] 11/29/2024 2:30 PM EDT Office Visit [facility] [address] [place] [address] Oscar Appiah MD [address] [facility] [address] [place] [address] documented as of this encounter Goals Goal [...] Modality Other Narrative 10/17/2024 9:50 AM EDT [facility]: Pre-operative CIED Report Assessment and Sara-Procedural Reommendations: Name: Mono Bobby Date: 10/17/2024 : 1960 Age: 64 y.o. Patient has a Display Carver: Berger COFFEE BAR ATTENDANT-PM Remaining battery longevity adequate. Lead integrity test [...] documented as of this encounter Care Teams Larry Operator Relationship Specialty Start Date End Date Asad Victor MD [address] [facility] [place] [address] PCP - General 10/07/22 documented as of this encounter
--- OUTSIDE RECORDS SUMMARY | 2024-10-17 06:21 | XMS_ITS | Encounter Summary ---
Author Organization [facility] Address [address] [id number] Care Team Providers Care Vegetable Harvest Machine Operator Name Role Phone Asad Victor MD Primary Care Provider [phone] Reason for Referral * Imaging (Routine) - Authorized Specialty Diagnoses / Procedures Referred By Susan t Referred To Contact Cardiology Diagnoses Critical limb ischemia of left lower extremity Pseudoaneurysm of left femoral artery (CMS/HCC) Procedures VAS US Arterial Duplex Lower Extremity Unilateral Left Terrell Gautam MD [address] [address] Phone: tel: fax: Referral ID Status Reason Start Date Expiration Date Visits Requested Visits Authorized [id number] Authorized Perform Procedure 10/19/2024 04/20/2026 1 1 * Imaging (Routine) - Authorized Specialty Diagnoses / Procedures Referred By Contac t Referred To Contact Cardiology Diagnoses Critical limb ischemia of left lower extremity Pseudoaneurysm of left femoral artery (CMS/HCC) Procedures VAS Ankle Brachial Index - Segmental Terrell Gautam MD [id number] [place] [address] Phone: tel: fax: Referral ID Status Reason Start Date Expiration Date Visits Requested Visits Authorized [id number] Authorized Perform Procedure 10/19/2024 04/20/2026 1 1 * Consultation (Routine) - Authorized Specialty Diagnoses / Procedures Referred By Contact Referred To Contact Vascular Surgery / [facility] Diagnoses Critical limb ischemia of left lower extremity Pseudoaneurysm of left femoral artery (CMS/HCC) Terrell Gautam MD [address] [place] [address] Phone: tel:[phone] fax:[phone] [facility] [address] [place] [address] 5th Floor [address] [place] [address] Phone: tel: fax: Referral ID Status Reason Start Date Expiration Date Visits Requested Visits Authorized [id number] Authorized Specialty Services Required 10/19/2024 04/20/2026 [address] Gautam, with SIL, arterial duplex Reason for Visit * Auth/Cert (Routine) Specialty Diagnoses / Procedures Referred By Susan t Referred To Contact Diagnoses Critical limb ischemia of left lower extremity Critical limb ischemia of left lower extremity [I70.222] Procedures NV VEIN BYPASS GRAFT,FEM-POP CREATION, BYPASS, ARTERIAL, FEMORAL TO POPLITEAL Terrell Gautam MD [address] [place] [address] Phone: tel: fax: [facility] A OPERATING ROOM [address] [place] [address] Phone: tel: Referral ID Status Reason Start Date Expiration Date Visits Re quested Visits Authorized [id number] 1 1 Encounter Details Date Type Department Care Team (Latest Contact Info) Description 10/17/2024 6:21 AM EDT - 10/19/2024 12:39 PM EDT Hospital Encounter [facility] H Inpatient [address] [place] [phone] Terrell Gautam MD [address] [place] [address] Pseudoaneurysm of left femoral artery (CMS/HCC) [...] any time in the past 12 m [facility], were you homeless or living in a jail (including now)? No 10/18/2024 CAGE ASSESSMENT Answer [...] drink first t dino in the morning (EYE-STOCKROOM INVENTORY CLERK) to steady your nerves or to get rid of a hangover? 0 10/18/2021 CAGE Questionnaire Score 0 022 Utilities Answer Date Recorded In the past 12 months has th [employer], gas, oil, or water [employer] threatened to shut off services in your [...] provided Taken 10/17/20242107 by Jourdan Grimes II soil expert Review/Management: medications reviewed Problem: Skin Injury Risk [...] Keyla Chow Outcome: Met 10/19/2024 1048 by eKyla Chow Outcome: Ongoing, Progressing Goal: Absence of [...] Ongoing, Progressing Intervention: Promote Activity and Functional Montrose Flowsheets (Taken 10/19/2024 1048) Self-Care Promotion: BADL personal objects within reach meal set-up provided * Yuni Ramires - Keyla Chow - 10/19/2024 11:45 AM EDT Images from the original note were not included. [id number] After Peripheral Artery Bypass Surgery: In the [...] home. Last Reviewed Date: 2023 00:00:00 ?? [id number] [employer]. All rights reserved. This information is not intended as a substitute for professional medical care. Always follow your healthcare professional's instructions. * Progress Notes - Emelina Friend - 10/19/2024 11:44 AM EDT Case Management Adult Progress Note Bev Bobby 64 y.o. male CSN: [id number] Admission: 10/17/2024 6:21 AM Primary Problem: Critical [...] if any other needs arise. Emelina Friend MARKET RESEARCH EXECUTIVE, PACKAGER HEAD Social Work Case Management * Yuni Ramires Solsi Davidon Keyla - 10/19/2024 11:44 AM EDT Images from the original note were not included. [id number] Peripheral Artery Disease (PAD) Peripheral artery disease [...] cause. Last Reviewed Date: 2024 00:00:00 ?? [id number] [employer]. All rights reserved. This information is not intended as a substitute for professional medical care. Always follow your healthcare professional's instructions. * Yuni Ramires - Keyla Chow - 10/19/2024 11:44 AM EDT Images from the original note were not included. [id number] Leg Artery Emergencies: Critical Limb Ischemia (CLI) [...] appointments. Last Reviewed Date: 2023 00:00:00 ?? [id number] [employer]. All rights reserved. This information is not intended as a substitute for professional medical care. Always follow your healthcare professional's instructions. * Discharge Summary - Dandy Baltazar MD - 10/19/2024 11:31 AM EDT Hospitalization Admit Date/Time: 10/17/2024 6:21 AM Admitting Attending: Terrell Gautam Discharge Date: 10/19/24 Discharge Attending Physician: Nirmal Cueto MD PCP name and Address: Asad Victor MD (Inactive) [address] [place] [address] / [facility] [address] Referring provider name and address: Timothy Marques PA [address] [place] [address] [place] [address] Chief Concern, Brief History of Present Illness, and Hospital Course Bev Bobby is an 64 y.o. 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 He [...] Your Medications These medications were sent to [facility] - [place], [place] - [address] , [facility] [address] acetaminophen 500 MG tablet clopidogrel 75 MG [...] of water. 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 He [...] provided Taken 10/17/20242107 by Jourdan Grimes II, soil expert Review/Management: medications reviewed Problem: Skin Injury Risk [...] Ongoing, Progressing Intervention: Promote Activity and Functional Montrose Flowsheets (Taken 10/19/2024 1048) Self-Care Promotion: BADL [...] evaluation. PARTICIPANTS IN CARE Visitors Present No Eating Disorder Psychologist (if applicable) PRESENTATION Oxygen Oxygen Therapy: None [...] Level of Mobility Ambulatory- household only Mobility [place] Independent gait with device (rollator) History of [...] numbness in rodney) BED MOBILITY Level of [place] Physical/Non- physical Assist Adaptive Equipment Utilized Rolling/ Turning Scooting/ Bridging Modified independence (anteriorly to EOB) Bed rails Supine to Sit Modified [place] (to the right) (HOB flat) Bed rails Sit to Supine Interventions HOB flat to simulate home environment TRANSFERS Level of [place] Physical/Non- physical Assist Adaptive Equipment Utilized Sit [...] stable surfaces during transitions. AMBULATION Level of [place] Distance Adaptive Equipment Utilized Ambulation Standby assist, [...] Posture: Forward head, Rounded shoulders Level of Montrose Balance Support Interventions Static Sit Independent Right [...] RW) STANDARDIZED ASSESSMENTS Standardized Assessments Standardized Assessments: [facility] 6-Clicks Mobility Assessment [facility] 6-Clicks Mobility Assessment Difficulty patient has turning [...] 3-5 steps with a railing?: A little [facility] 6-Clicks Mobility Assessment Total : 22 ASSESSMENT [...] evaluation/session. Participants in Care Family/Caregiver Present: No Eating Disorder Psychologist: Not Applicable Presentation Oxygen Therapy: None (Room [...] Level of Mobility: Ambulatory- household only Mobility Montrose: Independent gait with device (rollator) History of [...] Mobility Bed Mobility Exam: Scooting/Bridging Level of Montrose: Modified independence (anteriorly to EOB) Assistive Device: Bed rails Bed Mobility Exam: Supine to Sit Level of Montrose: Modified [place] (to the right) Physical/Nonphysical Assist: (HOB flat) Assistive Device: Bed rails Transfers Transfer Exam: Sit to stand Level of Montrose: Stand-by assist Physical/Nonphysical Assist: Supervision, Verbal Cues, Minimal cues Assistive Device: Walker, rolling Transfer Exam: Stand to Sit Level of Montrose: Stand-by assist Physical/Nonphysical Assist: Supervision, Verbal Cues, [...] regarding toileting at this time. Standardized Assessments [facility] 6-Click Daily Activities Help from Other: Don/Doff Regular Lower Body Clothings: None Help From Other: Bathing: Little Help From Other: Toileting: None Help From Other: Don/Doff Upper Body Clothings: None Help From Other: Grooming: None Help From Other: Eating Meals: None [facility] 6 Click - Daily Activities Score: 23/24 [facility] Scoring Interpretation: Scores greater than 20.5 suggest [...] Note Bev Bobby 64 y.o. male CSN: [id number] Admission: 10/17/2024 6:21 AM Primary Problem: Critical limb ischemia of left lower extremity Hadoop Architect reviewed chart and spoke with patient to complete this Initial Case Management Assessment. PCP: Asad Victor MD (Inactive) - Dr. Palomo Preferred pharmacy is [facility] Emergency Contact: Extended Emergency Contact Information Primary Emergency Contact: Patti Hill Relation: Sister Eating Disorder Psychologist needed? No Insurance: Primary Visit Coverage Payer Plan Sponsor Code Group Number Group Name [facility] MEDICARE [facility] MEDICARE REPLACEMENT [id number] Primary Visit Coverage Subscriber Subscriber ID Subscriber Name Subscriber N Subscriber Address [id number] BEV BOBBY [id number] [place] [address] Secondary Visit Coverage Payer Plan Sponsor Code Group Number Group Name [facility] Secondary Visit Coverage Subscriber Subscriber ID Subscriber Name Subscriber N Subscriber Address [id number] BEV BOBBY [id number] [place] [address] Patient information: Primary Caregiver: Self Daily Living Activities: Functional Status: Independent Living Arrangements: Alone Type of Residence: Private residence, Single Level [address] [place] [address] Current DME: Equipment Currently Used at Home: walker, rollator Income Information: Income Source: Retired Income/Expense Information: Income meets expenses Current Resources Utilized: Food [place] Housing Circumstances-Z Codes: Housing Circumstances (select all [...] Dialysis Services: None. Living Will/Advance Directive/Power of Cooler Service Supervisor /Guardian: Denied. Additional Comments: Patient is not medically ready for discharge. SW will continue to follow. Mariia Macedo PACKAGER HEAD * Care Plan - Emilia Alonso RN [...] Agree with above assessment and evaluation from resident/FUNERAL CAR DRIVER. * Op Note - Terrell Gautam [...] with bovine patch repair Left external iliac artery/MARINE RIGGER stent Attending Surgeon(s): * Terrell Gautam - Primary Property Management Coordinator(s): * Luna Beckett MD - Resident - [...] Reasons Recent surgery contiguous with urinary tract/SUPERVISOR ERECTION SHOP/colorectal 10/17/24 1900 Output (mL) 50 mL 10/18/24 08 Implants Type Name Action Serial No. VASCUGUARD 8 X 8 - [id number] Implanted STENT ENDOPROSTHESIS VIABAHN 9FR [id number] - [id number] Implanted [id number] Specimen: Specimens ID Source Frozen? 1 Other (specify site) No Description: left common femoral plaque Findings: significant plaque and pseudoaneurysm of the left common femoral artery Indications: eBv Bobby is an 64 y.o. male who [...] and distal control. We then proceeded with ktghj-asz-qbqf exposure of the popliteal artery. A medial [...] balloon dilated thestent with a 9 mm [place]. We closed the arteriotomy with a single [...] 10/17/2024 8:52 AM EDT Date: 10/17/24 Location: [facility] Name: TYLER Hamm: 1960, Diagnoses: Pre-op Diagnosis Critical limb ischemia of left lower extremity Common femoral artery pseudoaneurysm Post-op Diagnosis Critical limb ischemia of left lower extremity Common femoral artery pseudoaneurysm Procedure(s): Left common/superficial/profunda femoral thromboendarterectomy with bovine patch repair Left external iliac artery/MARINE RIGGER stent Attending Surgeon(s): * Terrell Gautam - Primary Property Management Coordinator(s): * Luna Beckett MD - Resident - Assisting * Dandy Baltazar MD - Fellow Anesthesia: General ASA: III Blood Administration: Blood Product Administration History None Estimated Blood Loss: 300 mL Drains: Urethral Catheter Temperature probe 16 Fr. (Active) Implants Type Name Action Serial No. VASCUGUARD 8 X 8 - [id number] Implanted STENT ENDOPROSTHESIS VIABAHN 9FR [id number] - [id number] Implanted [id number] Specimen: Specimens ID Source Frozen? 1 Other [...] issues. 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 He previouslyunderwent thrombin injection. He reports pain in his calves. He presents today for scheduled left lower extremity femoral to mqhll-chy-bujd popliteal bypass. Planned likely use PTFE. He [...] 16. Results Review {Vanishing Link Review Results :[id number] I have reviewed the latest lab and imaging results. Assessment & Plan Critical limb ischemia of left lower extremity Proceed with scheduled surgery left lower extremity femoral to fktsn-wxr-fonj popliteal artery bypass graft. Extensive discussion had [...] Info) Description 11/26/2024 2:00 PM EDT Appointment [facility] [address] [place] [address] 11/26/2024 2:30 PM EDT Appointment [facility] [address] [place] [address] 11/26/2024 3:20 PM EDT Office Visit [facility] [address] [place] [address] Elisabet Schuster PA [address] [facility] [address] [place] [address] 11/29/2024 2:30 PM EDT Office Visit [facility] [address] [place] [address] Oscar Appiah MD [address] [facility] [address] [place] [address] Pending Results Name Type Priority [...] PREPARE RBC STAT 10/17/2024 8:06 AM EDT NV VEIN BYPASS GRAFT,FEM-POP 10/17/2024 7:38 AM EDT [...] Comment 10/19/2024 11:42 AM EDT HEALTHCARE LAB School Cafeteria Cook Head ID KamranJob 10/20/19 11:42 AM EDT HEALTHCARE LAB Device ID [id number] 10/19/2024 11:42 AM EDT HEALTHCARE LAB Specimen Type POC Capillary 10/19/2024 11:[address] [facility] Blood Capillary blood specimen / Unknown 10/19/2024 11:40 AM EDT 10/19/2024 11:42 AM EDT Terrell Gautam MD LAB POINT OF CARE TE ST DOCKED DEVICE UNSOLICITED RESULTS Final Result Performing Organization Address City/State/[facility] Co de Phone Number [facility] [address] [place] [address] * (ABNORMAL) Protime-INR (10/19/2024 8:25 AM EDT) Prothrombin Time 17.5(H) 12.0 - 14.3 sec LAB COAGULATION METHOD 10/19/2024 9:25 AM EDT [facility] INR 1.4(H) 0.9 - 1.1 LAB COAGULATION METHOD 10/19/2024 9:25 AM EDT [facility] Blood Venous blood specimen / Unknown Venipuncture / Unknown 10/19/2024 8:25 AM EDT 10/19/2024 8:43 AM EDT Narrative [facility] - 10/19/2024 9:25 AM EDT OPTIMAL INR RANGES FOR PATIENT ON ORAL ANTICOAGULANT THERAPY Prevention of venous thromboembolism INR 2.0 to 3.0 In patients with heart disease: Atrial fibrillation INR 2.0 to 3.0 Valvular heart disease INR 2.0 to 3.0 Tissue heart valves INR 2.0 to 3.0 Mechanical prosthetic valves INR 2.5 to 3.5 Prevention of recurrent IN INR 2.5 to 3.5 us Nirmal Cueto MD LAB BLOOD ORDERABLES Final Result Performing Organization Address City/[facility]/[place] [address] * (ABNORMAL) Phosphorus (10/19/2024 8:25 AM EDT) Phosphorus, Plasma 2.2(L) 2.5 - 4.5 mg/dL 10/19/2024 9:12 AM EDT [facility] Blood Venous blood specimen / Unknown Venipuncture / Unknown 10/19/2024 8:25 AM EDT 10/19/2024 8:43 AM EDT us Nirmal Cueto MD LAB BLOOD ORDERABLES Final Result Performing Organization Address City/[facility]/ZIP Co de Phone Number [facility] [address] [place] [address] * Magnesium (10/19/2024 8:25 AM EDT) Magnesium, Plasma 2.1 1.9 - 2.4 mg/dL 10/19/2024 9:12 AM EDT [facility] Blood Venous blood specimen / Unknown Venipuncture / Unknown 10/19/2024 8:25 AM EDT 10/19/2024 8:43 AM EDT us Nirmal Cueto MD LAB BLOOD ORDERABLES Final Result [facility] [address] [place] [address] * (ABNORMAL) Basic metabolic panel (10/19/2024 8:25 AM EDT) Glucose, Plasma 191(H) 74 - 99 mg/dL 10/19/2024 9:12 AM EDT [facility] BUN, Plasma 18 8 - 23 mg/dL 10/19/2024 9:12 AM EDT [facility] Creatinine, Plasma 0.76 0.70 - 1.20 mg/dL 10/19/2024 9:12 AM EDT [facility] BUN/Creatinine Ratio 24 10/19/2024 9:12 AM EDT [facility] Sodium, Plasma 135(L) 136 - 145 mmol/L 10/19/2024 9:12 AM EDT [facility] Potassium, Plasma 4.1 3.6 - 4.9 mmol/L 10/19/2024 9:12 AM EDT [facility] Chloride, Plasma 104 97 - 107 mmol/L 10/19/2024 9:12 AM EDT [facility] CO2, Plasma 22 22 - 29 mmol/L 10/19/2024 9:12 AM EDT [facility] Anion Gap 9 6 - 16 mmol/L 10/19/2024 9:12 AM EDT [facility] Total Calcium, Plasma 8.4(L) 8.9 - 10.2 mg/dL 10/19/2024 9:12 AM EDT [facility] eGFRcr 99.7 mL/min/1.7 3m*2 10/19/2024 9:12 AM EDT [facility] Comment:Reported eGFRcr in m L/min/1.73m2 is based the CKD-EPI 2020 equation that does not use a race coefficient. Blood Venous blood specimen / Unknown Venipuncture / Unknown 10/19/2024 8:25 AM EDT 10/19/2024 8:43 AM EDT us Nirmal Cueto MD LAB BLOOD ORDERABLES Final Result [facility] [address] [place] [address] * (ABNORMAL) CBC W/O Differential (10/19/2024 8:25 AM EDT) WBC Count 14.10(H) 3.70 - 10.30 10*3/uL LAB HEMATOLOGY METHOD 10/19/2024 8:52 AM EDT [facility] RBC Count 2.61(L) 4.60 - 6.10 10*6/uL LAB HEMATOLOGY METHOD 10/19/2024 8:52 AM EDT [facility] HGB 8.0(L) 13.7 - 17.5 g/dL LAB HEMATOLOGY METHOD 10/19/2024 8:52 AM EDT [facility] HCT 24.3(L) 40.0 - 51.0 % LAB HEMATOLOGY METHOD 10/19/2024 8:52 AM EDT [facility] Platelet Count 318 155 - 369 10*3/uL LAB HEMATOLOGY METHOD 10/19/2024 8:52 AM EDT [facility] MCV 93 79 - 98 fL LAB HEMATOLOGY METHOD 10/19/2024 8:52 AM EDT [facility] MCH 30.7 26.0 - 32.0 pg LAB HEMATOLOGY METHOD 10/19/2024 8:52 AM EDT [facility] MCHC 32.9 30.7 - 35.5 g/dL LAB HEMATOLOGY METHOD 10/19/2024 8:52 AM EDT [facility] RDW 13.4 11.5 - 14.5 % LAB HEMATOLOGY METHOD 10/19/2024 8:52 AM EDT [facility] MPV 9.6 8.8 - 12.5 fL LAB HEMATOLOGY METHOD 10/19/2024 8:52 AM EDT [facility] nRBC 0.0 <=0.0 per 100 WBCs LAB HEMATOLOGY METHOD 10/19/2024 8:52 AM EDT [facility] Blood Venous blood specimen / Unknown Venipuncture / Unknown 10/19/2024 8:25 AM EDT 10/19/2024 8:44 AM EDT Nirmal Cueto MD LAB BLOOD ORDERABLES Final Result [facility] [address] [place] [address] * (ABNORMAL) POCT glucose meter (10/19/2024 7:35 AM EDT) [facility] POCT Glucose 187(H) 74 - 99 mg/dL [...] 10/19/2024 7:37 AM EDT [facility] [employer] Cook Head ID Kamran, Job 10/20/19 7:37 AM EDT HEALTHCARE LAB Device ID [id number] 10/19/2024 7:37 AM EDT [facility]ALTH[facility]ARE LAB Specimen Type POC Capillary 10/19/2024 7:37 AM EDT [facility] Blood Capillary blood specimen / Unknown 10/19/2024 7:35 AM EDT 10/19/2024 7:37 AM EDT us Terrell Gautam MD LAB POINT OF CARE TE ST DOCKED DEVICE UNSOLICITED RESULTS Final Result [facility] [address] [place] [address] * (ABNORMAL) POCT glucose meter (10/18/2024 7:22 PM EDT) [facility] POCT Glucose 178(H) 74 - 99 mg/dL [...] 10/18/2024 7:24 PM EDT [facility] [employer] Cook Head ID Jovan Mahesh 10/18/2024 7:24 PM EDT [facility] Device ID [id number] 10/18/2024 7:24 PM EDT [facility] Specimen Type POC Capillary 10/18/2024 7:24 PM EDT [facility] Blood Capillary blood specimen / Unknown 10/18/2024 7:22 PM EDT 10/18/2024 7:24 PM EDT us Terrell Gautam MD LAB POINT OF CARE TE ST DOCKED DEVICE UNSOLICITED RESULTS Final Result Performing Organization Address City/[facility]/ZIP Co de Phone Number [facility]ALTHCARE LAB [address] [place] [address] * (ABNORMAL) POCT glucose meter (10/18/2024 6:07 [...] Comment 10/18/2024 6:09 PM EDT [facility]ALTHCARE LAB [employer] Cook Head ID David Parks 10/18/2024 6:09 PM EDT HEALTHCARE LAB Device ID [id number] 10/18/2024 6:09 PM EDT HEALTHCARE LAB Specimen Type POC Capillary 10/18/2024 6:09 PM EDT [facility] Blood Capillary blood specimen / Unknown 10/18/2024 6:07 PM EDT 10/18/2024 6:09 PM EDT us Terrell Gautam MD LAB POINT OF CARE TE ST DOCKED DEVICE UNSOLICITED RESULTS Final Result [facility] [address] [place] [address] * (ABNORMAL) POCT glucose meter (10/18/2024 11:56 [...] Comment 10/21/2024 7:42 AM EDT HEALTHCARE LAB [employer] Cook Head ID Venessa Marcano 10/21/2024 7:42 AM EDT [facility] Device ID [id number] 10/21/2024 7:42 AM EDT [facility]ALTH[facility]ARE LAB Specimen Type POC Capillary 10/21/2024 7:42 AM EDT [facility]ARE LAB Blood Capillary blood specimen / Unknown 10/18/2024 11:56 AM EDT 10/21/2024 7:42 AM EDT Terrell Gautam MD LAB POINT OF CARE TE ST DOCKED DEVICE UNSOLICITED RESULTS Final Result Performing Organization Address City/State/[facility] Co de Phone Number [facility] [address] [place] [address] * (ABNORMAL) POCT glucose meter (10/18/2024 9:24 AM EDT) [facility] Signature POCT Glucose 322(H) 74 - [...] Comment 10/21/2024 7:42 AM EDT [facility]ALTH[facility]ARE LAB [employer] Cook Head ID Emilia Alonso 7:42 AM EDT HEALTHCARE LAB Device ID [id number] 10/21/2024 7:42 AM EDT [facility]ALTH[facility]ARE LAB Specimen Type POC Venous 10/21/2024 7:42 AM EDT [facility] Blood Venous blood specimen / Unknown 10/18/2024 9:24 AM EDT 10/21/2024 7:42 AM EDT us Terrell Gautam MD LAB POINT OF CARE TE ST DOCKED DEVICE UNSOLICITED RESULTS Final Result [facility] [address] [place] [address] * (ABNORMAL) POCT glucose meter (10/18/2024 7:36 [...] Comment 10/18/2024 7:38 AM EDT [facility] [employer] Cook Head ID Kizzy Godfrey 025 7:38 AM EDT HEALTHCARE LAB Device ID [id number] 10/18/2024 7:[address] [facility] Specimen Type POC Capillary 10/18/2024 7:[address] [facility] Blood Capillary blood specimen / Unknown 10/18/2024 7:36 AM EDT 10/18/2024 7:38 AM EDT us Terrell Gautam MD LAB POINT OF CARE TE ST DOCKED DEVICE UNSOLICITED RESULTS Final Result Performing Organization Address City/[facility] Hospital/ZIP Co de Phone Number HEALTHCARE [facility] [address] [place] [address] * (ABNORMAL) CBC (10/18/2024 2:09 AM EDT) WBC Count 16.71(H) 3.70 - 10.30 10*3/uL LAB HEMATOLOGY METHOD 10/18/2024 2:33 AM EDT [facility] RBC Count 2.78(L) 4.60 - 6.10 10*6/uL LAB HEMATOLOGY METHOD 10/18/2024 2:33 AM EDT [facility] HGB 8.5(L) 13.7 - 17.5 g/dL LAB HEMATOLOGY METHOD 10/18/2024 2:33 AM EDT [facility] HCT 25.7(L) 40.0 - 51.0 % LAB HEMATOLOGY METHOD 10/18/2024 2:33 AM EDT [facility] Platelet Count 324 155 - 369 10*3/uL LAB HEMATOLOGY METHOD 10/18/2024 2:33 AM EDT [facility] MCV 92 79 - 98 fL LAB HEMATOLOGY METHOD 10/18/2024 2:33 AM EDT [facility] MCH 30.6 26.0 - 32.0 pg LAB HEMATOLOGY METHOD 10/18/2024 2:33 AM EDT [facility] MCHC 33.1 30.7 - 35.5 g/dL LAB HEMATOLOGY METHOD 10/18/2024 2:33 AM EDT [facility] RDW 13.3 11.5 - 14.5 % LAB HEMATOLOGY METHOD 10/18/2024 2:33 AM EDT [facility] MPV 9.4 8.8 - 12.5 fL LAB HEMATOLOGY METHOD 10/18/2024 2:33 AM EDT [facility] nRBC 0.0 <=0.0 per 100 WBCs LAB HEMATOLOGY METHOD 10/18/2024 2:33 AM EDT [facility] Blood Venous blood specimen / Unknown Venipuncture / Unknown 10/18/2024 2:09 AM EDT 10/18/2024 2:25 AM EDT Nirmal Cueto MD LAB BLOOD ORDERABLES Final Result [facility] [address] [place] [address] * (ABNORMAL) Basic metabolic panel (10/18/2024 2:09 AM EDT) Glucose, Plasma 206(H) 74 - 99 mg/dL 10/18/2024 2:53 AM EDT [facility] BUN, Plasma 24(H) 8 - 23 mg/dL 10/18/2024 2:53 AM EDT [facility] Creatinine, Plasma 1.17 0.70 - 1.20 mg/dL 10/18/2024 2:53 AM EDT [facility] BUN/Creatinine Ratio 21 10/18/2024 2:53 AM EDT [facility] Sodium, Plasma 136 136 - 145 mmol/L 10/18/2024 2:53 AM EDT [facility] Potassium, Plasma 4.8 3.6 - 4.9 mmol/L 10/18/2024 2:53 AM EDT [facility] Chloride, Plasma 104 97 - 107 mmol/L 10/18/2024 2:53 AM EDT [facility] CO2, Plasma 22 22 - 29 mmol/L 10/18/2024 2:53 AM EDT [facility] Anion Gap 10 6 - 16 mmol/L 10/18/2024 2:53 AM EDT [facility] Total Calcium, Plasma 8.5(L) 8.9 - 10.2 mg/dL 10/18/2024 2:53 AM EDT [facility] eGFRcr 69.2 mL/min/1.7 3m*2 10/18/2024 2:53 AM EDT [facility] Comment:Reported eGFRcr in m L/min/1.73m2 is based the CKD-EPI 2020 equation that does not use a race coefficient. Blood Venous blood specimen / Unknown Venipuncture / Unknown 10/18/2024 2:09 AM EDT 10/18/2024 2:25 AM EDT Nirmal Cueto MD LAB BLOOD ORDERABLES Final Result [facility] [address] [place] [address] * (ABNORMAL) Magnesium (10/18/2024 2:09 AM EDT) Magnesium, Plasma 1.8(L) 1.9 - 2.4 mg/dL 10/18/2024 2:53 AM EDT [facility] Blood Venous blood specimen / Unknown Venipuncture / Unknown 10/18/2024 2:09 AM EDT 10/18/2024 2:25 AM EDT us Nirmal Cueto MD LAB BLOOD ORDERABLES Final Result [facility] [address] [place] [address] * Phosphorus (10/18/2024 2:09 AM EDT) Phosphorus, Plasma 3.7 2.5 - 4.5 mg/dL 10/18/2024 2:53 AM EDT [facility] Blood Venous blood specimen / Unknown Venipuncture / Unknown 10/18/2024 2:09 AM EDT 10/18/2024 2:25 AM EDT Nirmal Cueto MD LAB BLOOD ORDERABLES Final Result Performing Organization Address [facility] Co de Phone Number [facility] [address] [place] [address] * (ABNORMAL) Protime-INR (10/18/2024 2:09 AM EDT) Prothrombin Time 14.5(H) 12.0 - 14.3 sec LAB COAGULATION METHOD 10/18/2024 2:53 AM EDT [facility] INR 1.1 0.9 - 1.1 LAB COAGULATION METHOD 10/18/2024 2:53 AM EDT [facility] Blood Venous blood specimen / Unknown Venipuncture / Unknown 10/18/2024 2:09 AM EDT 10/18/2024 2:25 AM EDT Narrative [facility] - 10/18/2024 2:53 AM EDT OPTIMAL INR RANGES FOR PATIENT ON ORAL ANTICOAGULANT THERAPY Prevention of venous thromboembolism INR 2.0 to 3.0 In patients with heart disease: Atrial fibrillation INR 2.0 to 3.0 Valvular heart disease INR 2.0 to 3.0 Tissue heart valves INR 2.0 to 3.0 Mechanical prosthetic valves INR 2.5 to 3.5 Prevention of recurrent IN INR 2.5 to 3.5 us Nirmal Cueto MD LAB BLOOD ORDERABLES Final Result Performing Organization Address [facility]/ZIP Co de Phone Number [facility] [address] [place] [address] * (ABNORMAL) POCT glucose meter (10/18/2024 2:08 AM EDT) [facility] POCT Glucose 202(H) 74 - 99 mg/dL [...] Comment 10/18/2024 2:10 AM EDT [facility] [employer] ID Jourdan Grimes II 10/18/2024 2:10 AM EDT [facility] Device ID [id number] 10/18/2024 2:10 AM EDT HEALTHCARE LAB Specimen Type POC Capillary 10/18/2024 2:[address] [facility] Blood Capillary blood specimen / Unknown 10/18/2024 2:08 AM EDT 10/18/2024 2:10 AM EDT us Terrell Gautam MD LAB POINT OF CARE TE ST DOCKED DEVICE UNSOLICITED RESULTS Final Result Performing Organization Address City/State/[facility] Co de Phone Number [facility] [address] [place] [address] * (ABNORMAL) POCT glucose meter (10/17/2024 10:07 PM EDT) [facility] POCT Glucose 300(H) 74 - 99 mg/dL [...] 10/17/2024 10:10 PM EDT [facility] [employer] ID Jourdan Grimes II 10/17/2024 10:10 PM EDT [facility] Device ID [id number] 10/17/2024 10:10 PM EDT HEALTHCARE LAB Specimen Type POC Capillary 10/17/2024 10:10 PM EDT [facility]ARE LAB Blood Capillary blood specimen / Unknown 10/17/2024 10:07 PM EDT 10/17/2024 10:10 PM EDT Terrell Gautam MD LAB POINT OF CARE TE ST DOCKED DEVICE UNSOLICITED RESULTS Final Result Performing Organization Address City/[facility]/ZIP Co de Phone Number HEALTHCARE [facility] [address] [place] [address] * (ABNORMAL) POCT glucose meter (10/17/2024 8:07 [...] Comment 10/17/2024 8:10 PM EDT [facility] [employer] ID Jourdan Grimes II 10/17/2024 8:10 PM EDT HEALTH[facility]ARE LAB Device ID [id number] 10/17/2024 8:10 PM EDT HEALTH[facility]ARE LAB Specimen Type POC Capillary 10/17/2024 8:10 PM EDT [facility] Blood Capillary blood specimen / Unknown 10/17/2024 8:07 PM EDT 10/17/2024 8:10 PM EDT Terrell Gautam MD LAB POINT OF CARE TE ST DOCKED DEVICE UNSOLICITED RESULTS Final Result [facility] [address] [place] [address] * (ABNORMAL) POCT glucose meter (10/17/2024 4:01 [...] Comment 10/17/2024 4:03 PM EDT [facility] [employer] ID Kiesha Waller 10/17/2024 4:03 PM EDT HEALTHCARE LAB Device ID [id number] 10/17/2024 4:03 PM EDT HEALTH[facility]ARE LAB Specimen Type POC Capillary 10/17/2024 4:03 PM EDT [facility]ALTH[facility]ARE LAB Blood Capillary blood specimen / Unknown 10/17/2024 4:01 PM EDT 10/17/2024 4:03 PM EDT us Terrell Gautam MD LAB POINT OF CARE TE ST DOCKED DEVICE UNSOLICITED RESULTS Final Result Performing Organization Address City/State/[facility] Co de Phone Number [facility] [address] [place] [address] * (ABNORMAL) POCT glucose meter (10/17/2024 1:25 PM EDT) [facility] Signature POCT Glucose 225(H) 74 - [...] Comment 10/17/2024 1:27 PM EDT [facility] [employer] ID Kizzy Godfrey 025 1:27 PM EDT HEALTHCARE LAB Device ID [id number] 10/17/2024 1:27 PM EDT HEALTHCARE LAB Specimen Type POC Capillary 10/17/2024 1:27 PM EDT [facility]ALTH[facility]ARE LAB Blood Capillary blood specimen / Unknown 10/17/2024 1:25 PM EDT 10/17/2024 1:27 PM EDT us Terrell Gautam MD LAB POINT OF CARE TE ST DOCKED DEVICE UNSOLICITED RESULTS Final Result Performing Organization Address City/[facility] Co de Phone Number [facility] [address] [place] [address] * [place] Less than 1 Hour Intraoperative (10/17/2024 1:18 PM EDT) Narrative IMAGING - 10/17/2024 2:05 PM EDT Images were obtained for surgical purposes. See Terrell Gautam's surgical note in the patient's chart for the findings. us Terrell Gautam MD IMG FLUOROSCOPY PROCEDURES Fi nal Result Performing Organization Address [facility] Co de Phone Number IMAGING * POCT ACT (10/17/2024 12:23 PM EDT) ACT+ (HIGH RANGE) 211 68 - 600 Seconds 10/29/2024 7:28 AM EDT [facility]ALTH[facility] [employer] ID oDnna Mcmillan 10/29/2024 7:28 AM EDT HEALTHCARE LAB ACT Device ID [id number] 10/29/2024 7:28 AM EDT [facility] Comment 10/29/2024 7:28 AM EDT [facility] Comment: ACT performed by [...] PM EDT 10/29/2024 7:28 AM EDT us Terrell Gautam MD LAB POINT OF CARE TE ST DOCKED DEVICE UNSOLICITED RESULTS Final Result Performing Organization Address [facility] Co de Phone Number [facility]ARE [facility] [address] LAB [address] [place] [address] * (ABNORMAL) Blood gas, arterial (10/17/2024 11:48 AM EDT) pH, Arterial 7.34 7.31 - 7.42 LAB HEMATOLOGY METHOD 10/17/2024 11:54 AM EDT [facility] pCO2, Arterial 41 32 - 45 mmHg LAB HEMATOLOGY METHOD 10/17/2024 11:54 AM EDT [facility] pO2, Arterial 202 >80 mmHg LAB HEMATOLOGY METHOD 10/17/2024 11:54 AM EDT [facility] SO2, Measured, Arterial 100(H) 94 - 98 % LAB HEMATOLOGY METHOD 10/17/2024 11:54 AM EDT [facility] Base Excess, Arterial -3.2(L) -2.0 - 3.0 mmol/L LAB HEMATOLOGY METHOD 10/17/2024 11:54 AM EDT [facility] Bicarbonate, Calculated, Arterial 22 22 - 26 mmol/L LAB HEMATOLOGY METHOD 10/17/2024 11:54 AM EDT [facility] Hematocrit, Whole Blood 28.6(L) 40.0 - 51.0 % LAB HEMATOLOGY METHOD 10/17/2024 11:54 AM EDT [facility] Sodium, Whole Blood 137 136 - 145 mmol/L LAB HEMATOLOGY METHOD 10/17/2024 11:54 AM EDT [facility] Potassium, Whole Blood 4.5 3.6 - 4.9 mmol/L LAB HEMATOLOGY METHOD 10/17/2024 11:54 AM EDT [facility] Chloride, Whole Blood 112(H) 97 - 107 mmol/L LAB HEMATOLOGY METHOD 10/17/2024 11:54 AM EDT [facility] Glucose, Whole Blood 201(H) 74 - 99 mg/dL LAB HEMATOLOGY METHOD 10/17/2024 11:54 AM EDT [facility] Ionized Calcium, Whole Blood 4.8 4.6 - 5.1 mg/dL LAB HEMATOLOGY METHOD 10/17/2024 11:54 AM EDT [facility] Lactate, Arterial, Whole Blood 2.3(H) 0.5 - 1.6 mmol/L LAB HEMATOLOGY METHOD 10/17/2024 11:54 AM EDT [facility] Blood Arterial blood specimen / Unknown Arterial Puncture / Unknown 10/17/2024 11:48 AM EDT 10/17/2024 11:53 AM EDT us Jenna Lopez CRNA LAB BLOOD ORDERABLES Final Re sult [facility] [address] [place] [address] * POCT ACT (10/17/2024 11:41 AM EDT) ACT+ (HIGH RANGE) 175 68 - 600 Seconds 10/29/2024 7:28 AM EDT [facility]ALTH[facility]ARE [facility] [employer] Oneyda Alicea 10/29/2024 7:28 AM EDT HEALTHCARE LAB ACT Device ID [id number] 10/29/2024 7:28 AM EDT HEALTHCARE LAB Comment 10/29/2024 7:28 AM EDT [facility] Comment: ACT performed by [...] [facility]/ZIP Co de Phone Number HEALTHCARE LAB [address] LAB [address] [place] [address] * POCT ACT (10/17/2024 11:11 AM EDT) ACT+ (HIGH RANGE) 252 68 - 600 Seconds 10/29/2024 7:28 AM EDT [facility]ALTH[facility]ARE [facility] [employer] ID Donna Mcmillan 10/29/2024 7:28 AM EDT HEALTHCARE LAB ACT Device ID [id number] 10/29/2024 7:28 AM EDT HEALTHCARE LAB Comment 10/29/2024 7:28 AM EDT [facility] Comment: ACT performed by [...] ST DOCKED DEVICE UNSOLICITED RESULTS Final Result [facility] [address] LAB [address] [place] [address] * (ABNORMAL) Blood gas, arterial (10/17/2024 10:46 AM EDT) pH, Arterial 7.35 7.31 - 7.42 LAB HEMATOLOGY METHOD 10/17/2024 10:56 AM EDT [facility] pCO2, Arterial 42 32 - 45 mmHg LAB HEMATOLOGY METHOD 10/17/2024 10:56 AM EDT [facility] pO2, Arterial 161 >80 mmHg LAB HEMATOLOGY METHOD 10/17/2024 10:56 AM EDT [facility] SO2, Measured, Arterial 100(H) 94 - 98 % LAB HEMATOLOGY METHOD 10/17/2024 10:56 AM EDT [facility] Base Excess, Arterial -2.2(L) -2.0 - 3.0 mmol/L LAB HEMATOLOGY METHOD 10/17/2024 10:56 AM EDT [facility] Bicarbonate, Calculated, Arterial 23 22 - 26 mmol/L LAB HEMATOLOGY METHOD 10/17/2024 10:56 AM EDT [facility] Hematocrit, Whole Blood 29.9(L) 40.0 - 51.0 % LAB HEMATOLOGY METHOD 10/17/2024 10:56 AM EDT [facility] Sodium, Whole Blood 138 136 - 145 mmol/L LAB HEMATOLOGY METHOD 10/17/2024 10:56 AM EDT [facility] Potassium, Whole Blood 4.0 3.6 - 4.9 mmol/L LAB HEMATOLOGY METHOD 10/17/2024 10:56 AM EDT [facility] Chloride, Whole Blood 110(H) 97 - 107 mmol/L LAB HEMATOLOGY METHOD 10/17/2024 10:56 AM EDT [facility] Glucose, Whole Blood 174(H) 74 - 99 mg/dL LAB HEMATOLOGY METHOD 10/17/2024 10:56 AM EDT [facility] Ionized Calcium, Whole Blood 5.1 4.6 - 5.1 mg/dL LAB HEMATOLOGY METHOD 10/17/2024 10:56 AM EDT [facility] Lactate, Arterial, Whole Blood 1.4 0.5 - 1.6 mmol/L LAB HEMATOLOGY METHOD 10/17/2024 10:56 AM EDT [facility] Blood Arterial blood specimen / Unknown Arterial Puncture / Unknown 10/17/2024 10:46 AM EDT 10/17/2024 10:54 AM EDT us Jenna Lopez CRNA LAB BLOOD ORDERABLES Final Re sult [facility] [address] [place] [address] * POCT ACT (10/17/2024 10:37 AM EDT) ACT+ (HIGH RANGE) 206 68 - 600 Seconds 10/29/2024 7:[address] [facility] [employer] ID Donna Mcmillan 10/29/2024 7:[address] [facility] ACT Device ID [id number] 10/29/2024 7:[address] [facility] Comment 10/29/2024 7:28 AM EDT [facility] Comment: ACT performed by [...] ST DOCKED DEVICE UNSOLICITED RESULTS Final Result [facility] [address] LAB [address] [place] [address] * Surgical Pathology Exam (10/17/2024 10:27 AM EDT) Case Report Surgical Pathology Case: [id number] Authorizing Provider: Terrell Gautam MD Collected: 10/17/2024 1027 Ordering Location: [facility] Received: 10/17/2024 1325 Pathologist: Haydee Osborne MD Specimen: Other (specify site), left common femoral plaque 10/21/2024 10:16 AM EDT [facility] Final Diagnosis A. LEFT COMMON FEMORAL PLAQUE, EXCISION: - CALCIFIED PLAQUE 10/21/2024 10:16 AM EDT [facility] at 1016 EDT Clinical Information Critical limb ischemia of left lower extremity [I70.222] 10/21/2024 10:16 AM EDT [facility] Gross Description A. LEFT COMMON FEMORAL PLAQUE Received in formalin labeled l eft common femoral plaque , is one aggregate of red-gabriel hard portions of plaque measuring 3.7 x 2.5 x 0.9 cm. The specimen is serially sectioned and quality control representative sections are submitted in cassette A1. Cold Time: <1m Kenia Aceves 10/21/2024 10:16 AM EDT [facility] Note: A resident was involved in the service. I attest I examined the relevant preparations for the specimens and confirmed the diagnosis or interpretation. 10/21/2024 10:16 AM EDT [facility] Tissue Topography unknown / Unknown 10/17/2024 10:27 AM EDT 10/17/2024 1:25 PM EDT Comment:Pre-op diagnosis: Critical limb ischemia of left lower extremity [I70.222] us Terrell Gautam MD LAB PATHOLOGY ORDERABLES Gwen grimaldo Result [facility] [address] [place] [address] * POCT ACT (10/17/2024 10:03 AM EDT) ACT+ (HIGH RANGE) 244 68 - 600 Seconds 10/29/2024 7:28 AM EDT HEALTHCARE LAB [employer] ID Donna Mcmillan 10/29/2024 7:28 AM EDT HEALTHCARE LAB ACT Device ID [id number] 10/29/2024 7:28 AM EDT HEALTHCARE LAB Comment 10/29/2024 7:28 AM EDT [facility] Comment: ACT performed by [...] ST DOCKED DEVICE UNSOLICITED RESULTS Final Result [facility] [address] LAB [address] [place] [address] * (ABNORMAL) Blood gas, arterial (10/17/2024 9:45 AM EDT) pH, Arterial 7.37 7.31 - 7.42 LAB HEMATOLOGY METHOD 10/17/2024 9:55 AM EDT [facility] pCO2, Arterial 43 32 - 45 mmHg LAB HEMATOLOGY METHOD 10/17/2024 9:55 AM EDT [facility] pO2, Arterial 177 >80 mmHg LAB HEMATOLOGY METHOD 10/17/2024 9:55 AM EDT [facility] SO2, Measured, Arterial 100(H) 94 - 98 % LAB HEMATOLOGY METHOD 10/17/2024 9:55 AM EDT [facility] Base Excess, Arterial -0.5 -2.0 - 3.0 mmol/L LAB HEMATOLOGY METHOD 10/17/2024 9:55 AM EDT [facility] Bicarbonate, Calculated, Arterial 25 22 - 26 mmol/L LAB HEMATOLOGY METHOD 10/17/2024 9:55 AM EDT [facility] Hematocrit, Whole Blood 30.0(L) 40.0 - 51.0 % LAB HEMATOLOGY METHOD 10/17/2024 9:55 AM EDT [facility] Sodium, Whole Blood 137 136 - 145 mmol/L LAB HEMATOLOGY METHOD 10/17/2024 9:55 AM EDT [facility] Potassium, Whole Blood 4.3 3.6 - 4.9 mmol/L LAB HEMATOLOGY METHOD 10/17/2024 9:55 AM EDT [facility] Chloride, Whole Blood 108(H) 97 - 107 mmol/L LAB HEMATOLOGY METHOD 10/17/2024 9:55 AM EDT [facility] Glucose, Whole Blood 191(H) 74 - 99 mg/dL LAB HEMATOLOGY METHOD 10/17/2024 9:55 AM EDT [facility] Ionized Calcium, Whole Blood 5.0 4.6 - 5.1 mg/dL LAB HEMATOLOGY METHOD 10/17/2024 9:55 AM EDT [facility] Lactate, Arterial, Whole Blood 1.3 0.5 - 1.6 mmol/L LAB HEMATOLOGY METHOD 10/17/2024 9:55 AM EDT [facility] Blood Arterial blood specimen / Unknown Arterial Line / Unknown 10/17/2024 9:45 AM EDT 10/17/2024 9:52 AM EDT us Jenna Lopez [facility] LAB BLOOD ORDERABLES Final Re sult [facility] [address] [place] [address] * (ABNORMAL) Blood gas, arterial (10/17/2024 8:47 AM EDT) pH, Arterial 7.37 7.31 - 7.42 LAB HEMATOLOGY METHOD 10/17/2024 8:59 AM EDT [facility] pCO2, Arterial 43 32 - 45 mmHg LAB HEMATOLOGY METHOD 10/17/2024 8:59 AM EDT [facility] pO2, Arterial 205 >80 mmHg LAB HEMATOLOGY METHOD 10/17/2024 8:59 AM EDT [facility] SO2, Measured, Arterial 100(H) 94 - 98 % LAB HEMATOLOGY METHOD 10/17/2024 8:59 AM EDT [facility] Base Excess, Arterial -0.3 -2.0 - 3.0 mmol/L LAB HEMATOLOGY METHOD 10/17/2024 8:59 AM EDT [facility] Bicarbonate, Calculated, Arterial 25 22 - 26 mmol/L LAB HEMATOLOGY METHOD 10/17/2024 8:59 AM EDT [facility] Hematocrit, Whole Blood 31.3(L) 40.0 - 51.0 % LAB HEMATOLOGY METHOD 10/17/2024 8:59 AM EDT [facility] Sodium, Whole Blood 138 136 - 145 mmol/L LAB HEMATOLOGY METHOD 10/17/2024 8:59 AM EDT [facility] Potassium, Whole Blood 4.0 3.6 - 4.9 mmol/L LAB HEMATOLOGY METHOD 10/17/2024 8:59 AM EDT [facility] Chloride, Whole Blood 108(H) 97 - 107 mmol/L LAB HEMATOLOGY METHOD 10/17/2024 8:59 AM EDT [facility] Glucose, Whole Blood 162(H) 74 - 99 mg/dL LAB HEMATOLOGY METHOD 10/17/2024 8:59 AM EDT [facility] Ionized Calcium, Whole Blood 5.2(H) 4.6 - 5.1 mg/dL LAB HEMATOLOGY METHOD 10/17/2024 8:59 AM EDT [facility] Lactate, Arterial, Whole Blood 1.7(H) 0.5 - 1.6 mmol/L LAB HEMATOLOGY METHOD 10/17/2024 8:59 AM EDT [facility] Blood Arterial blood specimen / Unknown Arterial Puncture / Unknown 10/17/2024 8:47 AM EDT 10/17/2024 8:58 AM EDT us Jenna Lopez [facility] LAB BLOOD ORDERABLES Final Re sult [facility] [address] [place] [address] * POCT ACT (10/17/2024 8:46 AM EDT) ACT+ (HIGH RANGE) 101 68 - 600 Seconds 10/29/2024 7:28 AM EDT HEALTHCARE [facility] [employer] ID Donna Mcmillan 10/29/2024 7:28 AM EDT HEALTHCARE LAB ACT Device ID [id number] 10/29/2024 7:28 AM EDT HEALTHCARE LAB Comment 10/29/2024 7:28 AM EDT [facility] Comment: ACT performed by [...] UNSOLICITED RESULTS Final Result Performing Organization Address [facility] de Phone Number HEALTHCARE LAB [address] LAB [address] [place] [address] * Type and Screen (10/17/2024 7:19 AM EDT) Pathologist [facility] ABO/Rh A Negative 10/17/2024 7:04 AM EDT BLOOD BANK Antibody Screen Negative 10/17/2024 7:04 AM EDT BLOOD BANK Specimen Expiration 10/20/2024 23:59 10/17/2024 7:04 AM EDT BLOOD BANK Blood Venous blood specimen / Unknown Venipuncture / Unknown 10/17/2024 7:19 AM EDT 10/17/2024 7:28 AM EDT us Maria Fernanda Mccallum MD LAB BLOOD BANK TEST ORDERAB LES Final Result Performing Organization Address [facility] de Phone Number BLOOD BANK [address] [place] [address], * (ABNORMAL) POCT glucose meter (10/17/2024 6:44 AM EDT) POCT Glucose 178(H) 74 - 99 mg/dL 10/17/2024 6:49 AM EDT [facility] Comment:Accuracy of a glucos e result [...] testing. Comment 10/17/2024 6:49 AM EDT [facility] [employer] ID Hunter Burroughs 10/18/19 6:49 AM EDT HEALTHCARE LAB Device ID [id number] 10/17/2024 6:49 AM EDT HEALTHCARE LAB Specimen Type POC Capillary 10/17/2024 6:49 AM EDT HEALTHCARE LAB Blood Capillary blood specimen / Unknown 10/17/2024 6:44 AM EDT 10/17/2024 6:49 AM EDT Terrell Gautam MD LAB POINT OF CARE TE ST DOCKED DEVICE UNSOLICITED RESULTS Final Result [facility] [address] [place] [address] documented in this encounter Visit Diagnoses Diagnosis [...] Keisha Waller, CHRISTIAN) [id number] (Given - Provider: eKyla Chow) PRN Medication Order 10/17/2024 10/18/2024 10/19/2024 [...] documented as of this encounter 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
--- OUTSIDE RECORDS SUMMARY | 2024-10-17 07:51 | XMS_ITS | Encounter Summary ---
Author Organization [facility] Address [address] [id number] Care Team Providers Care Automation Engineer Name Role Phone Asad Victor MD Primary Care Provider + [phone] Reason for Visit * Auth/Cert (Routine) Specialty Diagnoses / Procedures Referred By Contac t Referred To Contact Diagnoses Critical limb ischemia of left lower extremity Critical limb ischemia of left lower extremity [I70.222] Procedures [place] VEIN BYPASS GRAFT,FEM-POP CREATION, BYPASS, ARTERIAL, FEMORAL TO POPLITEAL Terrell Gautam MD [address] [facility] [address] [place] [address] Phone: tel: fax: PAV A OPERATING ROOM [address] [place] [address] Phone: tel: Referral ID Status Reason Start Date Expiration Date Visits Re quested Visits Authorized [id number] 1 1 Encounter Details Date Type Department Care Team (Late st Contact Info) Description 10/17/2024 7:51 AM EDT Anesthesia Event PAV A OPERATING ROOM [address] [place] [phone] Maria Fernanda Mccallum MD [address] [place] [address] Anesthesia Record Procedure Summary Procedure [...] Hand; Site Prep: Chlorhexidine ; Local Anesth: [place]; Technique: Anatomical landmarks; Inserted by: CHRISTIAN Acuna; [...] any time in the past 12 m [facility], were you homeless or living in a care home (including now)? No 10/18/2024 CAGE ASSESSMENT [...] drink first t dino in the morning (EYE-CASE CHECKER) to steady your nerves or to [...] * Anesthesia Postprocedure Evaluation - Jenna Lopez, INTERFACE CONTROL OFFICER - 10/17/2024 1:29 PM EDT Patient: Mono [...] by Swetha Villareal MD Staffing Performed: ISH INTERFACE CONTROL OFFICER: Jenna Lopez CRNA * Anesthesia Procedure Notes - Jenna Lopez CRNA - 10/17/2024 9:00 AM EDT Associated Order(s): Airway Airway Date/Time: 10/17/2024 8:03 AM Reason: elective Airway not difficult General Information and Staff Patient location during procedure: OR INTERFACE CONTROL OFFICER: Jenna Lopez CRNA Performed: INTERFACE CONTROL OFFICER Patient Condition Indications for airway management: anesthesia [...] * Anesthesia Procedure Notes - Maria Fernanda Mcacllum MD - 10/17/2024 8:52 AM EDT Associated [...] note 09/25/24 (media) + CAD s/p multiple CT's and 3V CABG 02/2019, 2 stents prior to CABG Atrial Fibrillation with RVR s/p CABG + carotid artery disease s/p R CEA 2016 + 3rd degree AV block GUEST SERVICE AIDE-P placed 08/2023 for Wenkeback with 11 sec pause + HLD + HTN - controlled + PAD 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 CORONARY ANGIOPLASTY Left Coronary Angiography With Concomitant Left Heart Catheterization from [facility] ??? CORONARY ARTERY BYPASS GRAFT N/A 2018 [...] 11/26/2024 2:00 PM EDT Appointment [facility] [address] [place] [address] 11/26/2024 2:30 PM EDT Appointment [facility] [address] [place] [address] 11/26/2024 3:20 PM EDT Office Visit [facility] [address] [place] [address] Elisabet Schuster PA [address] [facility] [address] [place] [address] 11/29/2024 2:30 PM EDT Office Visit [facility] [address] [place] [address] Oscar Appiah MD [address] [facility] [address] [place] [address] documented as of this encounter Goals Goal [...] ANESTHESIA PLACEHOLDER Routine 10/17/2024 8:03 AM EDT SC AN ELECTIVE ENDOTRACHEAL AIRWAY Routine 10/17/2024 8:03 [...] Performed by Swetha Villareal MD Staffing Performed: INTERFACE CONTROL OFFICER INTERFACE CONTROL OFFICER: Jenna Lopez CRNA Maria Fernanda Mccallum MD ANESTHESIA ORDERABLES Edite d Result - Final * SC AN ELECTIVE ENDOTRACHEAL AIRWAY, PB ANESTHESIA PLACEHOLDER (10/17/2024 8:03 AM EDT) Narrative Jenna Lopez CRNA - 10/17/2024 8:03 AM EDT Jenna Lopez CRNA 10/17/2024 9:00 AM Airway Date/Time: 10/17/2024 8:03 AM Reason: elective Airway not difficult General Information and Staff Patient location during procedure: OR INTERFACE CONTROL OFFICER: Jenna Lopez CRNA Performed: ISH Patient Condition [...] MD ANESTHESIA ORDERABLES Final Result * [facility] AN POCUS CARDIAC PROCDOC (10/17/2024 7:18 AM [...] Trace AR. The images were Saved in [employer]. The study was technically adequate. Comments: I [...] documented as of this encounter Care Teams Automation Engineer Relationship Specialty Start Date End Date Asad Victor MD [address] [place] [address] PCP - General 10/07/22 documented as of this encounter
--- OUTSIDE RECORDS SUMMARY | 2024-10-17 08:00 | XMS_ITS | Encounter Summary ---
Author Organization [facility] Address [address] [place] [address] Care Team Providers Care Manager Analytical Name Role Phone Asad Victor MD Primary Care Provider + [phone] Reason for Visit * Auth/Cert (Routine) Specialty Diagnoses / Procedures Referred By Contac t Referred To Contact Diagnoses Critical limb ischemia of left lower extremity Critical limb ischemia of left lower extremity [I70.222] Procedures AL VEIN BYPASS GRAFT,FEM-POP CREATION, BYPASS, ARTERIAL, FEMORAL TO POPLITEAL Terrell Gautam MD [address] [address] Phone: tel: fax: [facility] [address] [place] [address] Phone: tel: Referral ID Status Reason Start Date Expiration Date Visits Re quested Visits Authorized [id number] 1 1 Encounter Details Date Type Department Care Team (Late st Contact Info) Description 10/17/2024 8:00 AM EDT - 10/17/2024 2:50 PM EDT Surgery [facility] [address] [place] [address] Terrell Gautam MD [address] [address] CREATION, BYPASS, ARTERIAL, FEMORAL TO POPLITEAL [29259 (CPT )] Surgery Details Date/Time Status Location [...] in the past 12 m [facility], were you homeless or living in a alf (including now)? No 10/18/2024 CAGE ASSESSMENT Answer [...] drink first t dino in the morning (EYE-LOAD MANAGER) to steady your nerves or to get rid of a hangover? 0 10/18/2021 CAGE Questionnaire Score 0 022 Utilities Answer Date Recorded In the past 12 months has th e [employer], gas, oil, or water [employer] threatened to shut off services in your [...] Care Goal: Plan of Care Review 10/19/2024 114 by Keyla Chow Outcome: Met Flowsheets Taken [...] Absence of Hospital-Acquired Illness or Injury 10/19/2024 114 by Keyla Chow Outcome: Met 10/19/2024 1048 by Keyla Chow Outcome: Ongoing, Progressing Intervention: Identify and Manage Fall Risk Flowsheets (Taken 10/18/2024 2030 by Kassie Mao RN) Safety Promotion/Fall Prevention: [...] provided Taken 10/17/20242107 by Jourdan Grimes II, behavior management specialist Review/Management: medications reviewed Problem: Skin Injury [...] Ongoing, Progressing Intervention: Promote Activity and Functional Hamilton Flowsheets (Taken 10/19/2024 1048) Self-Care Promotion: BADL personal objects within reach meal set-up provided * Yuni DiorJOSE MANUEL - Keyla Chow - 10/19/2024 11:45 AM EDT Images from the original note were not included. 08370 After Peripheral Artery Bypass Surgery: In the [...] home. Last Reviewed Date: 2023 00:00:00 ?? [id number] [employer]. All rights reserved. This information is not intended as a substitute for professional medical care. Always follow your healthcare professional's instructions. * Progress Notes - Emelina Friend - 10/19/2024 11:44 AM EDT Case Management Adult Progress Note Bev Bobby 64 y.o. male CSN: [id number] Admission: 10/17/2024 6:21 AM Primary Problem: Critical [...] if any other needs arise. Emelina Friend DETECTIVE HOMICIDE SQUAD, WEB APPLICATIONS ADMINISTRATOR Social Work Case Management * Keyla Reyes - 10/19/2024 11:44 AM EDT Images from the original note were not included. [id number] Peripheral Artery Disease (PAD) Peripheral artery disease [...] cause. Last Reviewed Date: 2024 00:00:00 ?? [id number] [employer]. All rights reserved. This information is not intended as a substitute for professional medical care. Always follow your healthcare professional's instructions. * Yuni Ramires - Keyla Chow - 10/19/2024 11:44 AM EDT Images from the original note were not included. [id number] Leg Artery Emergencies: Critical Limb Ischemia (CLI) [...] appointments. Last Reviewed Date: 2023 00:00:00 ?? [id number] [employer]. All rights reserved. This information is not intended as a substitute for professional medical care. Always follow your healthcare professional's instructions. * Discharge Summary - Dandy Baltazar MD - 10/19/2024 11:31 AM EDT Hospitalization Admit Date/Time: 10/17/2024 6:21 AM Admitting Attending: Terrell Gautam Discharge Date: 10/19/24 Discharge Attending Physician: Nirmal Cueto MD PCP name and Address: Asad Victor MD (Inactive) [address] [facility] [address] Referring provider name and address: Timothy Marques PA [address] [place] [address] Chief Concern, Brief History of Present Illness, and Hospital Course Bev Bobby is an 64 y.o. 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 He [...] Your Medications These medications were sent to [facility] - [place], [place] - [address] [facility] [address] [facility], [facility] [address] acetaminophen 500 MG tablet clopidogrel 75 MG [...] of water. 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 He [...] provided Taken 10/17/20242107 by Jourdan Grimes II behavior management specialist Review/Management: medications reviewed Problem: Skin Injury [...] Ongoing, Progressing Intervention: Promote Activity and Functional Hamilton Flowsheets (Taken 10/19/2024 1048) Self-Care Promotion: BADL personal objects within reach meal set-up provided * Progress Notes - Femi Cole R - 10/19/2024 9:08 AM EDT PHYSICAL THERAPY [...] evaluation. PARTICIPANTS IN CARE Visitors Present No Chief Catalyst Operator (if applicable) PRESENTATION Oxygen Oxygen Therapy: [...] Level of Mobility Ambulatory- household only Mobility Hamilton Independent gait with device (rollator) History of [...] numbness in rodney) BED MOBILITY Level of Hamilton Physical/Non- physical Assist Adaptive Equipment Utilized Rolling/ Turning Scooting/ Bridging Modified independence (anteriorly to EOB) Bed rails Supine to Sit Modified Hamilton (to the right) (HOB flat) Bed rails Sit to Supine Interventions HOB flat to simulate home environment TRANSFERS Level of Hamilton Physical/Non- physical Assist Adaptive Equipment Utilized Sit [...] stable surfaces during transitions. AMBULATION Level of Hamilton Distance Adaptive Equipment Utilized Ambulation Standby assist, [...] Posture: Forward head, Rounded shoulders Level of Hamilton Balance Support Interventions Static Sit Independent Right [...] 3-5 steps with a railing?: A little [facility] 6-Clicks Mobility Assessment Total : 22 [...] evaluation/session. Participants in Care Family/Caregiver Present: No Chief Catalyst Operator: Not Applicable Presentation Oxygen Therapy: None [...] Level of Mobility: Ambulatory- household only Mobility Hamilton: Independent gait with device (rollator) History of [...] Mobility Bed Mobility Exam: Scooting/Bridging Level of Hamilton: Modified independence (anteriorly to EOB) Assistive Device: Bed rails Bed Mobility Exam: Supine to Sit Level of Hamilton: Modified Hamilton (to the right) Physical/Nonphysical Assist: (HOB flat) Assistive Device: Bed rails Transfers Transfer Exam: Sit to stand Level of Hamilton: Stand-by assist Physical/Nonphysical Assist: Supervision, Verbal Cues, Minimal cues Assistive Device: Walker, rolling Transfer Exam: Stand to Sit Level of Hamilton: Stand-by assist Physical/Nonphysical Assist: Supervision, Verbal Cues, [...] regarding toileting at this time. Standardized Assessments [facility] 6-Click Daily Activities Help from Other: Don/Doff Regular Lower Body Clothings: None Help From Other: Bathing: Little Help From Other: Toileting: None Help From Other: Don/Doff Upper Body Clothings: None Help From Other: Grooming: None Help From Other: Eating Meals: None [facility] 6 Click - Daily Activities Score: 23/24 [facility] Scoring Interpretation: Scores greater than 20.5 [...] Note Bev Bobby 64 y.o. male CSN: [id number] Admission: 10/17/2024 6:21 AM Primary Problem: Critical limb ischemia of left lower extremity [facility] First reviewed chart and spoke with patient to complete this Initial Case Management Assessment. PCP: Asad Victor MD (Inactive) - Dr. Palomo Preferred pharmacy is [facility] Emergency Contact: Extended Emergency Contact Information Primary Emergency Contact: Patti Hill Relation: Sister Chief Catalyst Operator needed? No Insurance: Primary Visit Coverage Payer Plan Sponsor Code Group Number Group Name [facility] MEDICARE [facility] MEDICARE REPLACEMENT [id number] Primary Visit Coverage Subscriber Subscriber ID Subscriber Name Subscriber [facility] Subscriber Address [id number] BEV BOBBY [id number] [place] [address] Secondary Visit Coverage Payer Plan Sponsor Code Group Number Group Name [employer] [facility] [facility] Secondary Visit Coverage Subscriber Subscriber ID Subscriber Name Subscriber N Subscriber Address [id number] BEV BOBBY [id number] [place] [address] Patient information: Primary Caregiver: Self Daily Living Activities: Functional Status: Independent Living Arrangements: Alone Type of Residence: Private residence, Single Level [address] [place] [address] Current DME: Equipment Currently Used at Home: joy monterroso Income Information: Income Source: Retired Income/Expense Information: Income meets expenses Current Resources Utilized: Food [employer] Housing Circumstances-Z Codes: Housing Circumstances (select all [...] Dialysis Services: None. Living Will/Advance Directive/Power of Outside Food Server /Guardian: Denied. Additional Comments: Patient is not medically ready for discharge. SW will continue to follow. Mariia Monterroso WEB APPLICATIONS ADMINISTRATOR * Care Plan - Emilia Alonso RN [...] from the original note were not included. [facility] Department of Surgery Division of Vascular [...] Prevention: activity supervised assistive device/personal items within [facility] fall prevention program maintained lighting adjusted clutter-free environment maintained nonskid shoes/slippers when out of bed safety round/check completed room organization consistent Intervention: Prevent Skin Injury Flowsheets Taken 10/17/20242107 Skin Protection: incontinence pads utilized Taken 10/17/20241899 Body Position: supine Intervention: Prevent and Manage VTE (Venous Thromboembolism) Risk Flowsheets (Taken 10/17/20241899) VTE Prevention/Management: right lower extremity SCDs (sequential [...] Prevention: activity supervised assistive device/personal items within [facility] fall prevention program maintained lighting adjusted clutter-free [...] Agree with above assessment and evaluation from resident/SCANNING COORDINATOR. * Op Note - Terrell Gautam MD - 10/17/2024 8:52 AM EDT Operative Note Date: 10/17/24 Location: [place] [facility] Name: Bev Bobby, : 1960, Diagnoses: Pre-op Diagnosis Critical limb ischemia of left lower extremity Common femoral artery pseudoaneurysm Post-op Diagnosis Critical limb ischemia of left lower extremity Common femoral artery pseudoaneurysm Procedure(s): Left common/superficial/profunda femoral thromboendarterectomy with bovine patch repair Left external iliac artery/AMBULANCE PARAMEDIC stent Attending Surgeon(s): * Terrell Gautam - Primary Foundry Supervisor(s): * Luna Beckett MD - Resident - [...] Urinary Catheter Necessity Yes, meets criteria 10/17/24 1900 CAUTI: Urinary Catheter Necessity Reasons Recent surgery contiguous with urinary tract/HAIR BOILER/colorectal 10/17/24 1900 Output (mL) 50 mL 10/18/24 0800 Implants Type Name Action Serial No. VASCUGUARD 8 X 8 - [id number] Implanted STENT ENDOPROSTHESIS VIABAHN 9FR [id number] - [id number] Implanted [id number] Specimen: Specimens ID Source Frozen? 1 Other [...] and distal control. We then proceeded with oprss-jlc-rvkh exposure of the popliteal artery. A medial [...] balloon dilated thestent with a 9 mm Hamilton. We closed the arteriotomy with a single [...] 10/17/2024 8:52 AM EDT Date: 10/17/24 Location: [place] [facility] Name: Bev Bobby, : 1960, Diagnoses: Pre-op Diagnosis Critical limb ischemia of left lower extremity Common femoral artery pseudoaneurysm Post-op Diagnosis Critical limb ischemia of left lower extremity Common femoral artery pseudoaneurysm Procedure(s): Left common/superficial/profunda femoral thromboendarterectomy with bovine patch repair Left external iliac artery/AMBULANCE PARAMEDIC stent Attending Surgeon(s): * Terrell Gautam - Primary Foundry Supervisor(s): * Luna Beckett MD - Resident - Assisting * Dandy Baltazar MD - Fellow Anesthesia: General ASA: III Blood Administration: Blood Product Administration History None Estimated Blood Loss: 300 mL Drains: Urethral Catheter Temperature probe 16 Fr. (Active) Implants Type Name Action Serial No. VASCUGUARD 8 X 8 - [id number] Implanted STENT ENDOPROSTHESIS VIABAHN 9FR [id number] - [id number] Implanted [id number] Specimen: Specimens ID Source Frozen? 1 Other [...] issues. 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 He previouslyunderwent thrombin injection. He reports pain in his calves. He presents today for scheduled left lower extremity femoral to plqbh-ipe-xnar popliteal bypass. Planned likely use PTFE. He [...] 16. Results Review {Vanishing Link Review Results :[id number] I have reviewed the latest lab and imaging results. Assessment & Plan Critical limb ischemia of left lower extremity Proceed with scheduled surgery left lower extremity femoral to vdsiu-bbd-dcoz popliteal artery bypass graft. Extensive discussion had [...] Info) Description 11/26/2024 2:00 PM EDT Appointment [facility] [address] [place] [address] 11/26/2024 2:30 PM EDT Appointment [facility] [address] [place] [address] 11/26/2024 3:20 PM EDT Office Visit [facility] [address] [place] [address] Elisabet Schuster PA [address] [facility] [address] [place] [address] 11/29/2024 2:30 PM EDT Office Visit [facility] [address] [place] [address] Oscar Appiah MD [address] [facility] [address] [place] [address] Pending Results Name Type Priority Associated Diagnoses [...] PREPARE RBC STAT 10/17/2024 8:06 AM EDT AL VEIN BYPASS GRAFT,FEM-POP 10/17/2024 7:38 AM EDT [...] Comment 10/19/2024 11:42 AM EDT HEALTHCARE LAB Auto Appraiser ID KamranJob 10/20/19 11:42 AM EDT HEALTHCARE LAB Device ID [id number] 10/19/2024 11:42 AM EDT HEALTHCARE LAB Specimen Type POC Capillary 10/19/2024 11:42 AM EDT [facility] Blood Capillary blood specimen / Unknown 10/19/2024 11:40 AM EDT 10/19/2024 11:42 AM EDT us Terrell Gautam MD LAB POINT OF CARE TE ST DOCKED DEVICE UNSOLICITED RESULTS Final Result Performing Organization Address City/State/[facility] Co de Phone Number HEALTHCARE LAB [address] [place] [address] * (ABNORMAL) Protime-INR (10/19/2024 8:25 AM EDT) Pathologist [facility] Prothrombin Time 17.5(H) 12.0 - 14.3 sec [...] INR 2.5 to 3.5 Prevention of recurrent NC INR 2.5 to 3.5 us Nirmal Cueto MD LAB BLOOD ORDERABLES Final Result Performing Organization Address City/[facility]/ZIP Co de Phone Number [facility] [address] [place] [address] * (ABNORMAL) Phosphorus (10/19/2024 8:25 AM EDT) Phosphorus, Plasma 2.2(L) 2.5 - 4.5 mg/dL 10/19/2024 9:12 AM EDT [facility] Blood Venous blood specimen / Unknown Venipuncture / Unknown 10/19/2024 8:25 AM EDT 10/19/2024 8:43 AM EDT us Nirmal Cueto MD LAB BLOOD ORDERABLES Final Result Performing Organization Address City/[facility] Co de Phone Number [facility] [address] [place] [address] * Magnesium (10/19/2024 8:25 AM EDT) Magnesium, Plasma 2.1 1.9 - 2.4 mg/dL 10/19/2024 9:12 AM EDT [facility] Blood Venous blood specimen / Unknown Venipuncture / Unknown 10/19/2024 8:25 AM EDT 10/19/2024 8:43 AM EDT Nirmal Cueto MD LAB BLOOD ORDERABLES Final Result Performing Organization Address City/[facility]/ZIP Co de Phone Number [facility] [address] [place] [address] * (ABNORMAL) Basic metabolic panel (10/19/2024 8:25 [...] Final Result [facility] [address] [place] [address] * (ABNORMAL) CBC W/O Differential (10/19/2024 8:25 [...] ORDERABLES Final Result [facility] [address] [place] [address] * (ABNORMAL) POCT glucose meter (10/19/2024 7:35 AM EDT) [facility] POCT Glucose 187(H) 74 - 99 mg/dL 10/19/2024 7:37 AM EDT [facility] Comment:Accuracy of a glucos e result [...] Comment 10/19/2024 7:37 AM EDT HEALTHCARE LAB Auto Appraiser ID Job Andrew 10/20/19 7:37 AM EDT HEALTHCARE LAB Device ID [id number] 10/19/2024 7:37 AM EDT HEALTHCARE LAB Specimen Type POC Capillary 10/19/2024 7:37 AM EDT HEALTHCARE LAB Blood Capillary blood specimen / Unknown 10/19/2024 7:35 AM EDT 10/19/2024 7:37 AM EDT us Terrell Gautam MD LAB POINT OF CARE TE ST DOCKED DEVICE UNSOLICITED RESULTS Final Result Performing Organization Address City/State/[facility] Co de Phone Number HEALTHCARE LAB [address] [place] [address] * (ABNORMAL) POCT glucose meter (10/18/2024 7:22 PM EDT) POCT Glucose 178(H) 74 - 99 mg/dL 10/18/2024 7:24 PM EDT HEALTHCARE LAB Comment:Accuracy of a [...] Comment 10/18/2024 7:24 PM EDT HEALTHCARE LAB Auto Appraiser ID Mahesh Aldana 10/18/2024 7:24 PM EDT HEALTHCARE LAB Device ID [id number] 10/18/2024 7:24 PM EDT HEALTHCARE LAB Specimen Type POC Capillary 10/18/2024 7:24 PM EDT [facility]ALTH[facility]ARE LAB Blood Capillary blood specimen / Unknown 10/18/2024 7:22 PM EDT 10/18/2024 7:24 PM EDT us Terrell Gautam MD LAB POINT OF CARE TE ST DOCKED DEVICE UNSOLICITED RESULTS Final Result Performing Organization Address City/[facility] Co de Phone Number HEALTHCARE LAB [address] [place] [address] * (ABNORMAL) POCT glucose meter (10/18/2024 6:07 PM EDT) [facility] POCT Glucose 167(H) 74 - [...] Comment 10/18/2024 6:09 PM EDT HEALTHCARE LAB Auto Appraiser ID David Parks 10/18/2024 6:09 PM EDT HEALTHCARE LAB Device ID [id number] 10/18/2024 6:09 PM EDT [facility] Specimen Type POC Capillary 10/18/2024 6:09 PM EDT [facility] Blood Capillary blood specimen / Unknown 10/18/2024 6:07 PM EDT 10/18/2024 6:09 PM EDT Terrell Gautam MD LAB POINT OF CARE TE ST DOCKED DEVICE UNSOLICITED RESULTS Final Result Performing Organization Address City/[facility] Co de Phone Number HEALTHCARE LAB [address] [place] [address] * (ABNORMAL) POCT glucose meter (10/18/2024 11:56 AM EDT) [facility] POCT Glucose 233(H) 74 - [...] 10/21/2024 7:42 AM EDT [facility] Auto Appraiser ID Venessa Marcano 10/21/2024 7:42 AM EDT HEALTHCARE LAB Device ID [id number] 10/21/2024 7:42 AM EDT HEALTHCARE LAB Specimen Type POC Capillary 10/21/2024 7:42 AM EDT HEALTHCARE LAB Blood Capillary blood specimen / Unknown 10/18/2024 11:56 AM EDT 10/21/2024 7:42 AM EDT us Terrell Gautam MD LAB POINT OF CARE TE ST DOCKED DEVICE UNSOLICITED RESULTS Final Result Performing Organization Address City/[facility] Co de Phone Number [facility] [address] [place] [address] * (ABNORMAL) POCT glucose meter (10/18/2024 9:24 AM EDT) [facility] POCT Glucose 322(H) 74 - 99 [...] Comment 10/21/2024 7:42 AM EDT HEALTHCARE LAB Auto Appraiser ID Emilia Alonso 7:42 AM EDT HEALTHCARE LAB Device ID [id number] 10/21/2024 7:42 AM EDT HEALTHCARE LAB Specimen Type POC Venous 10/21/2024 7:42 AM EDT HEALTHCARE LAB Blood Venous blood specimen / Unknown 10/18/2024 9:24 AM EDT 10/21/2024 7:42 AM EDT us Terrell Gautam MD LAB POINT OF CARE TE ST DOCKED DEVICE UNSOLICITED RESULTS Final Result Performing Organization Address City/[facility]/ZIP Co de Phone Number [facility] [address] [place] [address] * (ABNORMAL) POCT glucose meter (10/18/2024 7:36 AM EDT) [facility] POCT Glucose 215(H) 74 - 99 [...] Comment 10/18/2024 7:38 AM EDT HEALTHCARE LAB Auto Appraiser ID Kizzy Godfrey 025 7:38 AM EDT HEALTHCARE LAB Device ID [id number] 10/18/2024 7:38 AM EDT [facility] Specimen Type POC Capillary 10/18/2024 7:38 AM EDT [facility] Blood Capillary blood specimen / Unknown 10/18/2024 7:36 AM EDT 10/18/2024 7:38 AM EDT us Terrell Gautam MD LAB POINT OF CARE TE ST DOCKED DEVICE UNSOLICITED RESULTS Final Result Performing Organization Address City/State/[facility] Co de Phone Number HEALTHCARE LAB [address] [place], [place] [id number] * (ABNORMAL) CBC (10/18/2024 2:09 AM EDT) [facility] WBC Count 16.71(H) 3.70 - 10.30 [...] ORDERABLES Final Result [facility] [address] [place] [address] * (ABNORMAL) Basic metabolic panel (10/18/2024 2:09 [...] BLOOD ORDERABLES Final Result Performing Organization Address City/[facility]/ZIP Co de Phone Number [facility] [address] [place] [address] * (ABNORMAL) Magnesium (10/18/2024 2:09 AM EDT) Magnesium, Plasma 1.8(L) 1.9 - 2.4 mg/dL 10/18/2024 2:53 AM EDT [facility] Blood Venous blood specimen / Unknown Venipuncture / Unknown 10/18/2024 2:09 AM EDT 10/18/2024 2:25 AM EDT Nirmal Cueto MD LAB BLOOD ORDERABLES Final Result [facility] [address] [place] [address] * Phosphorus (10/18/2024 2:09 AM EDT) Phosphorus, Plasma 3.7 2.5 - 4.5 mg/dL 10/18/2024 2:53 AM EDT [facility] Blood Venous blood specimen / Unknown Venipuncture / Unknown 10/18/2024 2:09 AM EDT 10/18/2024 2:25 AM EDT Nirmal Cueto MD LAB BLOOD ORDERABLES Final Result Performing Organization Address [facility] Co de Phone Number [facility] [address] [place] [address] * (ABNORMAL) Protime-INR (10/18/2024 2:09 AM EDT) [...] INR 2.5 to 3.5 Prevention of recurrent NC INR 2.5 to 3.5 Nirmal Cueto MD LAB BLOOD ORDERABLES Final Result Performing Organization Address City/[facility]/ZIP Co de Phone Number [facility] [address] [place] [address] * (ABNORMAL) POCT glucose meter (10/18/2024 2:08 AM EDT) POCT Glucose 202(H) 74 - 99 mg/dL 10/18/2024 2:10 AM EDT [facility] Comment:Accuracy of a glucos e result [...] Comment 10/18/2024 2:10 AM EDT HEALTHCARE LAB Auto Appraiser ID Jourdan Grimes II 10/18/2024 2:10 AM EDT HEALTHCARE LAB Device ID [id number] 10/18/2024 2:10 AM EDT HEALTHCARE LAB Specimen Type POC Capillary 10/18/2024 2:10 AM EDT HEALTHCARE LAB Blood Capillary blood specimen / Unknown 10/18/2024 2:08 AM EDT 10/18/2024 2:10 AM EDT us Terrell Gautam MD LAB POINT OF CARE TE ST DOCKED DEVICE UNSOLICITED RESULTS Final Result Performing Organization Address City/State/[facility] Co de Phone Number [facility] [address] [place] [address] * (ABNORMAL) POCT glucose meter (10/17/2024 10:07 PM EDT) [facility] POCT Glucose 300(H) 74 - [...] Comment 10/17/2024 10:10 PM EDT HEALTHCARE LAB Auto Appraiser ID Jourdan Grimes II 10/17/2024 10:10 PM EDT HEALTHCARE LAB Device ID [id number] 10/17/2024 10:10 PM EDT HEALTHCARE LAB Specimen Type POC Capillary 10/17/2024 10:10 PM EDT HEALTHCARE LAB Blood Capillary blood specimen / Unknown 10/17/2024 10:07 PM EDT 10/17/2024 10:10 PM EDT us Terrell Gautam MD LAB POINT OF CARE TE ST DOCKED DEVICE UNSOLICITED RESULTS Final Result Performing Organization Address [facility] Co de Phone Number HEALTHCARE LAB [address] [place] [address] * (ABNORMAL) POCT glucose meter (10/17/2024 8:07 PM EDT) [facility] POCT Glucose 391(H) 74 - [...] Comment 10/17/2024 8:10 PM EDT HEALTHCARE LAB Auto Appraiser ID Cornelio WALTERS Jourdan 10/17/2024 8:10 PM EDT HEALTHCARE LAB Device ID [id number] 10/17/2024 8:10 PM EDT [facility] Specimen Type POC Capillary 10/17/2024 8:10 PM EDT [facility] Blood Capillary blood specimen / Unknown 10/17/2024 8:07 PM EDT 10/17/2024 8:10 PM EDT Terrell Gautam MD LAB POINT OF CARE TE ST DOCKED DEVICE UNSOLICITED RESULTS Final Result Performing Organization Address [facility] de Phone Number [facility] [address] [place] [address] * (ABNORMAL) POCT glucose meter (10/17/2024 4:01 PM EDT) [facility] POCT Glucose 249(H) 74 - [...] 10/17/2024 4:03 PM EDT [facility] Auto Appraiser ID Chelsieamanda Keisha 10/17/2024 4:03 PM EDT HEALTHCARE LAB Device ID [id number] 10/17/2024 4:03 PM EDT [facility] Specimen Type POC Capillary 10/17/2024 4:03 PM EDT HEALTHCARE LAB Blood Capillary blood specimen / Unknown 10/17/2024 4:01 PM EDT 10/17/2024 4:03 PM EDT us Terrell Gautam MD LAB POINT OF CARE TE ST DOCKED DEVICE UNSOLICITED RESULTS Final Result Performing Organization Address [facility]/ZIP Co de Phone Number [facility] [address] [place] [address] * (ABNORMAL) POCT glucose meter (10/17/2024 1:25 PM EDT) [facility] POCT Glucose 225(H) 74 - 99 [...] 10/17/2024 1:27 PM EDT [facility] Auto Appraiser ID Kizzy Godfrey 025 1:27 PM EDT [facility] Device ID [id number] 10/17/2024 1:27 PM EDT HEALTHCARE LAB Specimen Type POC Capillary 10/17/2024 1:27 PM EDT HEALTHCARE LAB Blood Capillary blood specimen / Unknown 10/17/2024 1:25 PM EDT 10/17/2024 1:27 PM EDT us Terrell Gautam MD LAB POINT OF CARE TE ST DOCKED DEVICE UNSOLICITED RESULTS Final Result Performing Organization Address City/[facility] Co de Phone Number [facility] [address] [place] [address] * [place] Less than 1 Hour Intraoperative [...] Seconds 10/29/2024 7:28 AM EDT HEALTHCARE LAB Auto Appraiser ID Donna Mcmillan 10/29/2024 7:28 AM EDT HEALTHCARE LAB ACT Device ID [id number] 10/29/2024 7:28 AM EDT HEALTHCARE LAB Comment [...] UNSOLICITED RESULTS Final Result Performing Organization Address City/[facility] Co de Phone Number HEALTHCARE LAB [address] LAB [address] [place] [address] * (ABNORMAL) Blood gas, arterial (10/17/2024 11:48 [...] 10/17/2024 11:53 AM EDT us Jenna Lopez SCANNING COORDINATOR LAB BLOOD ORDERABLES Final Re sult [facility] [address] [place] [address] * POCT ACT (10/17/2024 11:41 AM EDT) ACT+ (HIGH RANGE) 175 68 - 600 Seconds 10/29/2024 7:28 AM EDT [facility] Auto Appraiser ID Oneyda Alicea 10/29/2024 7:28 AM EDT [facility] ACT Device ID [id number] 10/29/2024 7:28 AM EDT HEALTHCARE LAB Comment [...] Result Performing Organization Address [facility] Co de Phone Number [facility] [address] [place] [address] [place] [address] * POCT ACT (10/17/2024 11:11 AM EDT) ACT+ (HIGH RANGE) 252 68 - 600 Seconds 10/29/2024 7:28 AM EDT HEALTHCARE LAB Auto Appraiser ID Donna Mcmillan 10/29/2024 7:28 AM EDT HEALTHCARE LAB ACT Device ID [id number] 10/29/2024 7:28 AM EDT [facility] [...] Result Performing Organization Address [facility] Co de Phone Number [facility] [address] [place], [place] [address] [address] [place] [address] * (ABNORMAL) Blood gas, arterial (10/17/2024 10:46 [...] 10/17/2024 10:54 AM EDT us Jenna Lopez SCANNING COORDINATOR LAB BLOOD ORDERABLES Final Re sult Performing Organization Address [facility] Co de Phone Number [facility] [address] [place] [address] * POCT ACT (10/17/2024 10:37 AM EDT) ACT+ (HIGH RANGE) 206 68 - 600 Seconds 10/29/2024 7:28 AM EDT HEALTHCARE LAB Auto Appraiser ID Donna Mcmillan 10/29/2024 7:28 AM EDT [facility] ACT Device ID [id number] 10/29/2024 7:28 AM EDT [facility] Comment 10/29/2024 7:28 AM EDT [facility] [...] 10:37 AM EDT 10/29/2024 7:28 AM EDT Terrell Gautam MD LAB POINT OF CARE TE ST DOCKED DEVICE UNSOLICITED RESULTS Final Result Performing Organization Address [facility] de Phone Number [facility] [address] LAB [address] [place] [address] * Surgical Pathology Exam (10/17/2024 10:27 AM EDT) Case Report Surgical Pathology Case: [id number] Authorizing Provider: Terrell Gautam MD Collected: 10/17/2024 1027 Ordering Location: [facility] A OPERATING ROOM Received: 10/17/2024 1325 [...] cm. The specimen is serially sectioned and ambulatory service representative sections are submitted in cassette [...] Gwen grimaldo Result [facility] [address] [place] [address] * POCT ACT (10/17/2024 10:03 AM EDT) ACT+ (HIGH RANGE) 244 68 - 600 Seconds 10/29/2024 7:28 AM EDT [facility] Auto Appraiser ID Donna Mcmillan 10/29/2024 7:28 AM EDT [facility] ACT Device ID [id number] 10/29/2024 7:28 AM EDT [facility] Comment 10/29/2024 7:28 AM EDT [facility] [...] Final Result [facility] [address] LAB [address] [place] [address] * (ABNORMAL) Blood gas, arterial (10/17/2024 9:45 [...] Final Re sult [facility] [address] [place] [address] * (ABNORMAL) Blood gas, arterial (10/17/2024 8:47 [...] 8:47 AM EDT 10/17/2024 8:58 AM EDT Jenna Lopez [facility] LAB BLOOD ORDERABLES Final Re sult [facility] [address] [place] [address] * POCT ACT (10/17/2024 8:46 AM EDT) ACT+ (HIGH RANGE) 101 68 - 600 Seconds 10/29/2024 7:28 AM EDT HEALTHCARE LAB Auto Appraiser ID Donna Mcmillan 10/29/2024 7:28 AM EDT HEALTHCARE LAB ACT Device ID [id number] 10/29/2024 7:28 AM EDT HEALTHCARE LAB Comment [...] UNSOLICITED RESULTS Final Result Performing Organization Address City/[facility]/ZIP Co de Phone Number [facility] [address] LAB [address] [place] [address] * Type and Screen (10/17/2024 7:19 AM [...] ORDERAB LES Final Result Performing Organization Address City/[facility]/ZIP Co de Phone Number BLOOD BANK [address] [place] [address] * (ABNORMAL) POCT glucose meter (10/17/2024 6:44 AM EDT) [facility] POCT Glucose 178(H) 74 - [...] 10/17/2024 6:49 AM EDT [facility] Auto Appraiser ID Hunter Burroughs 10/18/19 6:49 AM EDT [facility] Device ID [id number] 10/17/2024 6:49 AM EDT [facility] Specimen Type POC Capillary 10/17/2024 6:49 AM EDT [facility] Blood Capillary blood specimen / Unknown 10/17/2024 6:44 AM EDT 10/17/2024 6:49 AM EDT us Terrell Gautam MD LAB POINT OF CARE TE ST DOCKED DEVICE UNSOLICITED RESULTS Final Result HEALTHCARE LAB [address] [place] [address] documented in this encounter Visit Diagnoses Diagnosis [...] Starting on Yadira 10/17/24 at 0831, Until Mon10/17/24 at 1317, Routine New Bag 10/17/2024 8:31 [...] (Given - Provider: Jourdan Grimes II, RN) 06 (Not Given - Provider: Rose De La Torre RN - Reason: Patient/family refused)143 (Not Given - Provider: Jere Farrell RN - Reason: Patient/family refused)2118 (Not Given - Provider: Kassie Mao RN [...] Waller, CHRISTIAN) 0809 (Given - Provider: Emilia Alonso RN) [...] 1030, Routine 1003 (Given - Provider: Emilia Alonso, CHRISTIAN) lidocaine (Lidoderm) 5 % patch 1 patch [...] (Given - Provider: Jourdan Grimes II, RN) 0809 (Given - Provider: Emilia Alonso, CHRISTIAN)2001 [...] CHRISTIAN)2001 (Given - Provider: Kassie Mao, CHRISTIAN) 951 (Given - Provider: Keyla Chow) sodium chloride 0.9 % flush 10 mL (CANCELED)(Linked Group 1) 10 mL, Intravenous, Every 12 hours, First dose on Yadira 10/17/24 at 0745, Until Discontinued, Routine, Holding - Preprocedure 0707 (Given - Provider: Tanja Denise RN)194 (Given - Provider: Jourdan Grimes II, CHRISTIAN) [...] as of this encounter Care Teams Manager Analytical Relationship Specialty Start Date End Date Asad Victor MD [address] [place] [id number] PCP - General 10/07/22 documented as of this encounter
--- OUTSIDE RECORDS SUMMARY | 2024-11-05 21:45 | XMS_ITS | Encounter Summary ---
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 Performing Organization Address [facility] Co de Phone Number [facility] [address] [place] [address] * (ABNORMAL) POCT glucose meter (11/12/2024 8:20 AM EDT) [facility] POCT Glucose 138(H) 74 - 99 [...] 11/12/2024 8:21 AM EDT [facility] Carry Out Clerk And Shelf Stocker ID Wade Feliciano 8:21 AM EDT HEALTHCARE LAB Device ID [id number] 11/12/2024 8:21 AM EDT [facility] Specimen Type POC Capillary 11/12/2024 8:21 AM EDT [facility] Blood Capillary blood specimen / Unknown 11/12/2024 8:20 AM EDT 11/12/2024 8:21 AM EDT Nathaly Nowak MD LAB POINT OF CARE TE ST DOCKED DEVICE UNSOLICITED RESULTS Final Result Performing Organization Address [facility] Co de Phone Number [facility] [address] [place] [address] * (ABNORMAL) POCT glucose meter (11/11/2024 8:18 PM EDT) Pathologist [facility] POCT Glucose 248(H) 74 - 99 mg/dL [...] Comment 11/11/2024 8:20 PM EDT [facility]ALTHCARE LAB Carry Out Clerk And Shelf Stocker ID Nelda Gerber 11/12/19 8:20 PM EDT [facility] Device ID [id number] 11/11/2024 8:20 PM EDT [facility] Specimen Type POC Capillary 11/11/2024 8:20 PM EDT [facility] Blood Capillary blood specimen / Unknown 11/11/2024 8:18 PM EDT 11/11/2024 8:20 PM EDT Nathaly Nowak MD LAB POINT OF CARE TE ST DOCKED DEVICE UNSOLICITED RESULTS Final Result Performing Organization Address City/[facility] Co de Phone Number [facility]ALTH[facility]ARE [facility] [address] [place] [address] * (ABNORMAL) POCT glucose meter (11/11/2024 5:59 PM EDT) Pathologist [facility] POCT Glucose 147(H) 74 - 99 mg/dL [...] Comment 11/11/2024 6:01 PM EDT [facility]ARE LAB Carry Out Clerk And Shelf Stocker ID Wade Feliciano 6:01 PM EDT HEALTHCARE LAB Device ID [id number] 11/11/2024 6:01 PM EDT [facility]ARE LAB Specimen Type POC Capillary 11/11/2024 6:01 PM EDT [facility] Blood Capillary blood specimen / Unknown 11/11/2024 5:59 PM EDT 11/11/2024 6:01 PM EDT Nathaly Nowak MD LAB POINT OF CARE TE ST DOCKED DEVICE UNSOLICITED RESULTS Final Result Performing Organization Address [facility] de Phone Number HEALTHCARE LAB [address] [place] [address] * POCT glucose meter (11/11/2024 5:20 PM EDT) [facility] POCT Glucose 84 74 - 99 [...] Comment 11/11/2024 5:22 PM EDT [facility]ARE LAB Carry Out Clerk And Shelf Stocker ID Wade Fleiciano 5:22 PM EDT HEALTH[facility]ARE LAB Device ID [id number] 11/11/2024 5:22 PM EDT [facility] Specimen Type POC Capillary 11/11/2024 5:22 PM EDT [facility] Blood Capillary blood specimen / Unknown 11/11/2024 5:20 PM EDT 11/11/2024 5:22 PM EDT us Nathaly Nowak MD LAB POINT OF CARE TE ST DOCKED DEVICE UNSOLICITED RESULTS Final Result Performing Organization Address City/[facility] Co de Phone Number [facility] [address] [place] [address] * [place] NEGATIVE PRESSURE WOUND THERAPY DME [...] POCT glucose meter (11/11/2024 12:08 PM EDT) [facility] POCT Glucose 226(H) 74 - 99 [...] Comment 11/11/2024 12:10 PM EDT [facility]ALTHCARE LAB Carry Out Clerk And Shelf Stocker ID Wade Feliciano Tobias 12:10 PM EDT [facility] Device ID [id number] 11/11/2024 12:10 PM EDT HEALTHCARE LAB Specimen Type POC Capillary 11/11/2024 12:10 PM EDT [facility]ARE [facility] Blood Capillary blood specimen / Unknown 11/11/2024 12:08 PM EDT 11/11/2024 12:10 PM EDT Nathaly Nowak MD LAB POINT OF CARE TE ST DOCKED DEVICE UNSOLICITED RESULTS Final Result [facility] [address] [place] [address] * (ABNORMAL) POCT glucose meter (11/11/2024 9:08 [...] for testing. Comment 11/11/2024 9:09 AM EDT [facility] Carry Out Clerk And Shelf Stocker ID Wade Feliciano 9:09 AM EDT [facility] Device ID [id number] 11/11/2024 9:09 AM EDT [facility] Specimen Type POC Capillary 11/11/2024 9:09 AM EDT [facility] Blood Capillary blood specimen / Unknown 11/11/2024 9:08 AM EDT 11/11/2024 9:09 AM EDT Nathaly Nowak MD LAB POINT OF CARE TE ST DOCKED DEVICE UNSOLICITED RESULTS Final Result [facility] [address] [place] [address] * POCT glucose meter (11/11/2024 8:27 AM EDT) Pathologist [facility] POCT Glucose 87 74 - 99 mg/dL [...] Comment 11/11/2024 8:28 AM EDT [facility]ALTH[facility]ARE LAB Carry Out Clerk And Shelf Stocker ID Wade Feliciano 8:28 AM EDT HEALTHCARE LAB Device ID [id number] 11/11/2024 8:28 AM EDT [facility]ARE LAB Specimen Type POC Capillary 11/11/2024 8:28 AM EDT [facility] Blood Capillary blood specimen / Unknown 11/11/2024 8:27 AM EDT 11/11/2024 8:28 AM EDT us Nathaly Nowak MD LAB POINT OF CARE TE ST DOCKED DEVICE UNSOLICITED RESULTS Final Result [facility] [address] [place] [address] * (ABNORMAL) Basic Metabolic Panel, Plasma (11/11/2024 [...] [facility] [address] [place] [address] * (ABNORMAL) CBC W/O Differential (11/11/2024 12:56 [...] ORDERABLES Final Resu lt Performing Organization Address City/[facility]/ZIP Co de Phone Number [facility] [address] [place] [address] * (ABNORMAL) POCT glucose meter (11/10/2024 8:25 [...] Comment 11/10/2024 8:28 PM EDT [facility]ALTH[facility]ARE [facility] Carry Out Clerk And Shelf Stocker ID Nelda Gerber 11/11/19 8:28 PM EDT HEALTHCARE LAB Device ID [id number] 11/10/2024 8:28 PM EDT HEALTHCARE LAB Specimen Type POC Capillary 11/10/2024 8:28 PM EDT [facility] Blood Capillary blood specimen / Unknown 11/10/2024 8:25 PM EDT 11/10/2024 8:28 PM EDT us Nathaly Nowak MD LAB POINT OF CARE TE ST DOCKED DEVICE UNSOLICITED RESULTS Final Result Performing Organization Address City/[facility]/ZIP Co de Phone Number [facility]ARE [facility] [address] [place] [address] * (ABNORMAL) POCT glucose meter (11/10/2024 4:45 [...] Comment 11/10/2024 4:47 PM EDT HEALTHCARE LAB Carry Out Clerk And Shelf Stocker ID Esperanza Parks 11/10/2024 4:47 PM EDT HEALTHCARE LAB Device ID [id number] 11/10/2024 4:47 PM EDT HEALTHCARE LAB Specimen Type POC Capillary 11/10/2024 4:47 PM EDT [facility] Blood Capillary blood specimen / Unknown 11/10/2024 4:45 PM EDT 11/10/2024 4:47 PM EDT Nathaly Nowak MD LAB POINT OF CARE TE ST DOCKED DEVICE UNSOLICITED RESULTS Final Result Performing Organization Address City/State/[facility] Co de Phone Number HEALTHCARE LAB [address] [place] [address] * (ABNORMAL) POCT glucose meter (11/10/2024 12:13 PM EDT) [facility] POCT Glucose 131(H) 74 - 99 [...] Comment 11/10/2024 12:14 PM EDT HEALTHCARE LAB Carry Out Clerk And Shelf Stocker ID Esperanza Parks 11/10/2024 12:14 PM EDT [facility] Device ID [id number] 11/10/2024 12:14 PM EDT [facility] Specimen Type POC Capillary 11/10/2024 12:14 PM EDT [facility]ALTH[facility]ARE [facility] Blood Capillary blood specimen / Unknown 11/10/2024 12:13 PM EDT 11/10/2024 12:14 PM EDT us Nathaly Nowak MD LAB POINT OF CARE TE ST DOCKED DEVICE UNSOLICITED RESULTS Final Result Performing Organization Address [facility] Co de Phone Number [facility] [address] [place] [address] * Vancomycin, Peak, Plasma Please draw ~2 [...] ult Performing Organization Address [facility] Co de Phone Number [facility] [address] [place] [address] * (ABNORMAL) POCT glucose meter (11/10/2024 8:03 AM EDT) [facility] POCT Glucose 174(H) 74 - 99 mg/dL 11/10/2024 8:04 AM EDT [facility] Comment:Accuracy of a glucos e result [...] for testing. Comment 11/10/2024 8:04 AM EDT [facility] Carry Out Clerk And Shelf Stocker ID Esperanza Parks 11/10/2024 8:04 AM EDT [facility] Device ID [id number] 11/10/2024 8:04 AM EDT HEALTHCARE LAB Specimen Type POC Capillary 11/10/2024 8:04 AM EDT [facility] Blood Capillary blood specimen / Unknown 11/10/2024 8:03 AM EDT 11/10/2024 8:04 AM EDT us Nathaly Nowak MD LAB POINT OF CARE TE ST DOCKED DEVICE UNSOLICITED RESULTS Final Result Performing Organization Address [facility] Co de Phone Number [facility] [address] [place] [address] * Vancomycin, Trough, Plasma Please draw ~30 minutes prior to dose due at 0800 on 11/10. Please do NOThold dose awaiting level to return. Consider obtaining level via peripheral stick. If peripheral stick is not feasible, please ensure that line is... (11/10/2024 7:27 AM EDT) Vancomycin, Trough, Plasma 16.2 10.0 - 20.0 ug/mL 11/10/2024 8:24 AM EDT [facility] Blood Venous blood specimen / Unknown Venipuncture / Unknown 11/10/2024 7:27 AM EDT 11/10/2024 7:51 AM EDT Narrative [facility] - 11/10/2024 8:24 AM EDT Therapeutic Trough level: 10-20ug/mL Supra-therapeutic Trough level: >20 ug/mL us Abigail Seay MD LAB BLOOD ORDERABLES Final Res ult Performing Organization Address City/[facility]/ZIP Co de Phone Number [facility] [address] [place] [address] * (ABNORMAL) CBC and Differential (11/10/2024 12:31 [...] AM EDT 11/10/2024 12:37 AM EDT Narrative [facility] - 11/10/2024 12:53 AM EDT Therapeutic decision making should be based on absolute values, rather than percentages. us Nathaly Nowak MD LAB BLOOD ORDERABLES Final Resu lt [facility] [address] [place] [address] * (ABNORMAL) Comprehensive Metabolic Panel, Plasma (11/10/2024 [...] [facility] [address] [place] [address] * (ABNORMAL) POCT glucose meter (11/09/2024 8:04 PM EDT) [facility] POCT Glucose 114(H) 74 - 99 mg/dL [...] Comment 11/09/2024 8:06 PM EDT HEALTHCARE LAB Carry Out Clerk And Shelf Stocker ID Maximiliano Hansen II 11/09/2024 8:06 PM EDT HEALTHCARE LAB Device ID [id number] 11/09/2024 8:06 PM EDT HEALTHCARE LAB Specimen Type POC Capillary 11/09/2024 8:06 PM EDT HEALTHCARE LAB Blood Capillary blood specimen / Unknown 11/09/2024 8:04 PM EDT 11/09/2024 8:06 PM EDT Nathaly Nowak MD LAB POINT OF CARE TE ST DOCKED DEVICE UNSOLICITED RESULTS Final Result [facility] [address] [place] [address] * (ABNORMAL) POCT glucose meter (11/09/2024 4:36 PM EDT) [facility] POCT Glucose 166(H) 74 - 99 [...] 11/09/2024 4:38 PM EDT [facility] Carry Out Clerk And Shelf Stocker ID Kristian Sosa 11/09/2024 4:38 PM EDT [facility] Device ID [id number] 11/09/2024 4:38 PM EDT HEALTHCARE LAB Specimen Type POC Capillary 11/09/2024 4:38 PM EDT [facility]ALTH[facility]ARE LAB Blood Capillary blood specimen / Unknown 11/09/2024 4:36 PM EDT 11/09/2024 4:38 PM EDT Nathaly Nowak MD LAB POINT OF CARE TE ST DOCKED DEVICE UNSOLICITED RESULTS Final Result Performing Organization Address City/State/[facility] Co pr Phone Number [facility] [address] [place] [address] * PICC SINGLE LUMEN (SMARTFORM LINK) (11/09/2024 1:11 PM EDT) Narrative Estefani Barraza RN - 11/09/2024 1:11 PM EDT Estefani Barraza RN 11/09/2024 1:12 PM Insert PICC line Date/Time: 11/09/2024 1:11 PM Performed by: Estefani Barraza RN Authorized by: Nathaly Nowak MD [place] Protocol: Verbal consent obtained?: Yes Written consent [...] selection rationale: Left pacemaker Catheter Lot #: [id number] Catheter budget assistant: Bard Catheter placed: Single lumen Catheter size: 4 Fr Catheter trimmed length: 42 Catheter threaded length: 42 Vein placed in: SVC Catheter cm indwellin Catheter cm outside: 0 Placement confirmed by: Nvaneet 3CG technology Pre-procedure: Landmarks identified Ultrasound guidance: [...] Comment 11/09/2024 11:51 AM EDT HEALTHCARE LAB Carry Out Clerk And Shelf Stocker ID Kristian Sosa 11/09/2024 11:51 AM EDT [facility] Device ID [id number] 11/09/2024 11:51 AM EDT [facility] Specimen Type POC Capillary 11/09/2024 11:51 AM EDT [facility] Blood Capillary blood specimen / Unknown 11/09/2024 11:50 AM EDT 11/09/2024 11:51 AM EDT Nathaly Nowak MD LAB POINT OF CARE TE ST DOCKED DEVICE UNSOLICITED RESULTS Final Result [facility] [address] [place] [address] * (ABNORMAL) POCT glucose meter (11/09/2024 8:14 AM EDT) Pathologist [facility] POCT Glucose 153(H) 74 - 99 mg/dL [...] Comment 11/09/2024 8:15 AM EDT HEALTHCARE LAB Carry Out Clerk And Shelf Stocker ID Kristian Sosa 11/09/2024 8:15 AM EDT HEALTHCARE LAB Device ID [id number] 11/09/2024 8:15 AM EDT HEALTHCARE LAB Specimen Type POC Capillary 11/09/2024 8:15 AM EDT [facility]ALTH[facility]ARE [facility] Blood Capillary blood specimen / Unknown 11/09/2024 8:14 AM EDT 11/09/2024 8:15 AM EDT us Nathaly Nowak MD LAB POINT OF CARE TE ST DOCKED DEVICE UNSOLICITED RESULTS Final Result [facility] [address] [place] [address] * (ABNORMAL) CBC and Differential (11/09/2024 4:15 AM EDT) [facility] WBC Count 10.27 3.70 - 10.30 [...] [facility] [address] [place] [address] * (ABNORMAL) Comprehensive Metabolic Panel, Plasma (11/09/2024 [...] [facility] [address] [place] [address] * (ABNORMAL) POCT glucose meter (11/09/2024 3:30 AM EDT) POCT Glucose 160(H) 74 - 99 mg/dL 11/09/2024 3:31 AM EDT [facility] Comment:Accuracy of a glucos e result [...] for testing. Comment 11/09/2024 3:31 AM EDT [facility] Carry Out Clerk And Shelf Stocker ID Maximiliano Hansen II 11/09/2024 3:31 AM EDT HEALTHCARE LAB Device ID [id number] 11/09/2024 3:31 AM EDT HEALTHCARE LAB Specimen Type POC Capillary 11/09/2024 3:31 AM EDT [facility]ALTH[facility]ARE [facility] Blood Capillary blood specimen / Unknown 11/09/2024 3:30 AM EDT 11/09/2024 3:31 AM EDT Nathaly Nowak MD LAB POINT OF CARE TE ST DOCKED DEVICE UNSOLICITED RESULTS Final Result Performing Organization Address City/[facility] Co de Phone Number [facility] [address] [place] [address] * (ABNORMAL) POCT glucose meter (11/08/2024 7:21 PM EDT) [facility] POCT Glucose 292(H) 74 - 99 [...] Comment 11/08/2024 7:22 PM EDT HEALTHCARE LAB Carry Out Clerk And Shelf Stocker ID Maximiliano Hansen II 11/08/2024 7:22 PM EDT HEALTHCARE LAB Device ID [id number] 11/08/2024 7:22 PM EDT HEALTHCARE LAB Specimen Type POC Capillary 11/08/2024 7:22 PM EDT [facility]ALTH[facility]ARE [facility] Blood Capillary blood specimen / Unknown 11/08/2024 7:21 PM EDT 11/08/2024 7:22 PM EDT Nathaly Nowak MD LAB POINT OF CARE TE ST DOCKED DEVICE UNSOLICITED RESULTS Final Result Performing Organization Address City/[facility] Co de Phone Number [facility]ALTH[facility]ARE [facility] [address] [place] [address] * (ABNORMAL) POCT glucose meter (11/08/2024 5:12 PM EDT) [facility] POCT Glucose [...] Comment 11/08/2024 5:14 PM EDT HEALTHCARE LAB Carry Out Clerk And Shelf Stocker ID Estefani Sheth 11/08/2024 5:14 PM EDT HEALTHCARE LAB Device ID [id number] 11/08/2024 5:14 PM EDT HEALTHCARE LAB Specimen Type POC Capillary 11/08/2024 5:14 PM EDT [facility] Blood Capillary blood specimen / Unknown 11/08/2024 5:12 PM EDT 11/08/2024 5:14 PM EDT Nathaly Nowak MD LAB POINT OF CARE TE ST DOCKED DEVICE UNSOLICITED RESULTS Final Result [facility] [address] [place] [address] * (ABNORMAL) POCT glucose meter (11/08/2024 12:03 PM EDT) [facility] POCT Glucose 191(H) 74 - 99 [...] Comment 11/08/2024 12:05 PM EDT HEALTHCARE LAB Carry Out Clerk And Shelf Stocker ID Estefani Sheth 11/08/2024 12:05 PM EDT HEALTHCARE LAB Device ID [id number] 11/08/2024 12:05 PM EDT HEALTHCARE LAB Specimen Type POC Capillary 11/08/2024 12:05 PM EDT [facility] Blood Capillary blood specimen / Unknown 11/08/2024 12:03 PM EDT 11/08/2024 12:05 PM EDT Nathaly Nowak MD LAB POINT OF CARE TE ST DOCKED DEVICE UNSOLICITED RESULTS Final Result Performing Organization Address [facility] Co de Phone Number [facility] [address] [place] [address] * Vancomycin, Peak, Plasma Please draw ~2 hours after 11/08 0600 dose of vancomycin finishes infusing.Consider obtaining level via peripheral stick. If peripheral stick is not feasible, please ensure that line is flushed well prior to drawing level.... (11/08/2024 9:24 AM EDT) [facility] Vancomycin, Peak, Plasma 29.1 20.0 - [...] lt Performing Organization Address [facility] Phone Number [facility] [address] [place] [address] * (ABNORMAL) POCT glucose meter (11/08/2024 8:00 AM EDT) Pathologist [facility] POCT Glucose 150(H) 74 - 99 mg/dL 11/08/2024 8:01 AM EDT [facility] Comment:Accuracy of a glucos e result [...] testing. Comment 11/08/2024 8:01 AM EDT [facility] Carry Out Clerk And Shelf Stocker ID Estefani Sheth 11/08/2024 8:01 AM EDT HEALTHCARE LAB Device ID [id number] 11/08/2024 8:01 AM EDT [facility]ALTHCARE LAB Specimen Type POC Capillary 11/08/2024 8:01 AM EDT [facility] Blood Capillary blood specimen / Unknown 11/08/2024 8:00 AM EDT 11/08/2024 8:01 AM EDT us Nathaly Nowak MD LAB POINT OF CARE TE ST DOCKED DEVICE UNSOLICITED RESULTS Final Result [facility] [address] [place] [address] * (ABNORMAL) CBC and Differential (11/08/2024 4:39 [...] [facility] [address] [place] [address] * (ABNORMAL) Comprehensive Metabolic Panel, Plasma (11/08/2024 [...] [facility] [address] [place] [address] * Vancomycin, Trough, Plasma Please draw ~30 [...] ORDERABLES Final Resu lt Performing Organization Address City/[facility]/ZIP Co de Phone Number [facility] [address] [place] [address] * (ABNORMAL) POCT glucose meter (11/07/2024 7:26 [...] for testing. Comment 11/07/2024 7:28 PM EDT [facility] Carry Out Clerk And Shelf Stocker ID Maximiliano Hansen II 11/07/2024 7:28 PM EDT [facility] Device ID [id number] 11/07/2024 7:28 PM EDT [facility] Specimen Type POC Capillary 11/07/2024 7:28 PM EDT [facility] Blood Capillary blood specimen / Unknown 11/07/2024 7:26 PM EDT 11/07/2024 7:28 PM EDT us Nathaly Nowak MD LAB POINT OF CARE TE ST DOCKED DEVICE UNSOLICITED RESULTS Final Result Performing Organization Address [facility] Co de Phone Number [facility]ARE [facility] [address] [place] [address] * (ABNORMAL) POCT glucose meter (11/07/2024 5:51 [...] Comment 11/07/2024 5:52 PM EDT [facility]ALTH[facility]ARE LAB Carry Out Clerk And Shelf Stocker ID Brigitte Castellon 11/07/2024 5:52 PM EDT [facility] Device ID [id number] 11/07/2024 5:52 PM EDT [facility] Specimen Type POC Capillary 11/07/2024 5:52 PM EDT [facility]ALTH[facility]ARE [facility] Blood Capillary blood specimen / Unknown 11/07/2024 5:51 PM EDT 11/07/2024 5:52 PM EDT Nathaly Nowak MD LAB POINT OF CARE TE ST DOCKED DEVICE UNSOLICITED RESULTS Final Result Performing Organization Address City/[facility] Co de Phone Number [facility] [address] [place] [address] * (ABNORMAL) POCT glucose meter (11/07/2024 4:47 [...] Comment 11/07/2024 4:48 PM EDT [facility]ALTH[facility]ARE LAB Carry Out Clerk And Shelf Stocker ID Estefani Sheth 11/07/2024 4:48 PM EDT HEALTHCARE LAB Device ID [id number] 11/07/2024 4:48 PM EDT [facility] Specimen Type POC Capillary 11/07/2024 4:48 PM EDT [facility]ALTH[facility]ARE [facility] Blood Capillary blood specimen / Unknown 11/07/2024 4:47 PM EDT 11/07/2024 4:48 PM EDT Nathaly Nowak MD LAB POINT OF CARE TE ST DOCKED DEVICE UNSOLICITED RESULTS Final Result Performing Organization Address City/[facility]/ZIP Co de Phone Number [facility] [address] [place] [address] * (ABNORMAL) POCT glucose meter (11/07/2024 12:22 PM EDT) Pathologist [facility] POCT Glucose 172(H) 74 - 99 mg/dL [...] Comment 11/07/2024 12:24 PM EDT HEALTHCARE LAB Carry Out Clerk And Shelf Stocker ID Estefani Sheth 11/07/2024 12:24 PM EDT [facility]ARE [facility] Device ID [id number] 11/07/2024 12:24 PM EDT [facility]ALTH[facility]ARE LAB Specimen Type POC Capillary 11/07/2024 12:24 PM EDT [facility]ARE [facility] Blood Capillary blood specimen / Unknown 11/07/2024 12:22 PM EDT 11/07/2024 12:24 PM EDT us Nathaly Nowak MD LAB POINT OF CARE TE ST DOCKED DEVICE UNSOLICITED RESULTS Final Result Performing Organization Address City/State/[facility] Co de Phone Number HEALTHCARE LAB [address] [place] [id number] * (ABNORMAL) CBC and Differential (11/07/2024 11:37 AM EDT) [facility] WBC Count 9.96 3.70 - 10.30 [...] AM EDT 11/07/2024 12:24 PM EDT Narrative [facility] - 11/07/2024 12:33 PM EDT Therapeutic decision making should be based on absolute values, rather than percentages. us Nathaly Nowak MD LAB BLOOD ORDERABLES Final Resu lt [facility] [address] [place] [address] * (ABNORMAL) Comprehensive Metabolic Panel, Plasma (11/07/2024 [...] [facility] [address] [place] [address] * Type and Screen (11/07/2024 11:37 AM [...] Performing Organization Address [facility] Co de Phone Number BLOOD BANK [address] * (ABNORMAL) POCT glucose meter (11/07/2024 [...] for testing. Comment 11/07/2024 10:36 AM EDT [facility] Carry Out Clerk And Shelf Stocker ID Joy Iraheta 11/07/2024 10:36 AM EDT [facility] Device ID [id number] 11/07/2024 10:36 AM EDT [facility] Specimen Type POC Capillary 11/07/2024 10:36 AM EDT [facility] Blood Capillary blood specimen / Unknown 11/07/2024 10:34 AM EDT 11/07/2024 10:36 AM EDT Nathaly Nowak MD LAB POINT OF CARE TE ST DOCKED DEVICE UNSOLICITED RESULTS Final Result Performing Organization Address City/[facility]/ZIP Co de Phone Number [facility] [address] [place] [address] * (ABNORMAL) POCT glucose meter (11/07/2024 9:34 [...] Comment 11/07/2024 9:36 AM EDT HEALTHCARE LAB Carry Out Clerk And Shelf Stocker ID Brigitte Castellon 11/07/2024 9:36 AM EDT HEALTHCARE LAB Device ID [id number] 11/07/2024 9:36 AM EDT HEALTHCARE LAB Specimen Type POC Capillary 11/07/2024 9:36 AM EDT HEALTHCARE LAB Blood Capillary blood specimen / Unknown 11/07/2024 9:34 AM EDT 11/07/2024 9:36 AM EDT Nathaly Nowak MD LAB POINT OF CARE TE ST DOCKED DEVICE UNSOLICITED RESULTS Final Result Performing Organization Address City/State/[facility] Co de Phone Number HEALTHCARE LAB [address] [place] [address] * (ABNORMAL) POCT glucose meter (11/07/2024 8:20 AM EDT) [employer] Signature POCT Glucose 137(H) 74 - 99 [...] Comment 11/07/2024 8:22 AM EDT HEALTHCARE LAB Carry Out Clerk And Shelf Stocker ID Estefani Sheth 11/07/2024 8:22 AM EDT HEALTHCARE LAB Device ID [id number] 11/07/2024 8:22 AM EDT HEALTHCARE LAB Specimen Type POC Capillary 11/07/2024 8:22 AM EDT HEALTHCARE LAB Blood Capillary blood specimen / Unknown 11/07/2024 8:20 AM EDT 11/07/2024 8:22 AM EDT Nathaly Nowak MD LAB POINT OF CARE TE ST DOCKED DEVICE UNSOLICITED RESULTS Final Result Performing Organization Address City/[facility] Co de Phone Number HEALTHCARE LAB [address] [place] [address] * (ABNORMAL) POCT glucose meter (11/07/2024 7:21 [...] for testing. Comment 11/07/2024 7:22 AM EDT [facility] Carry Out Clerk And Shelf Stocker ID Brigitte Castellon 11/07/2024 7:22 AM EDT [facility] Device ID [id number] 11/07/2024 7:22 AM EDT [facility] Specimen Type POC Capillary 11/07/2024 7:22 AM EDT [facility] Blood Capillary blood specimen / Unknown 11/07/2024 7:21 AM EDT 11/07/2024 7:22 AM EDT us Nathaly Nowak MD LAB POINT OF CARE TE ST DOCKED DEVICE UNSOLICITED RESULTS Final Result Performing Organization Address City/[facility] Co de Phone Number [facility] [address] [place] [address] * (ABNORMAL) POCT glucose meter (11/07/2024 6:25 [...] Comment 11/07/2024 6:27 AM EDT HEALTHCARE LAB Carry Out Clerk And Shelf Stocker ID Nelad Gerber 11/08/19 6:27 AM EDT HEALTHCARE LAB Device ID [id number] 11/07/2024 6:27 AM EDT HEALTHCARE LAB Specimen Type POC Capillary 11/07/2024 6:27 AM EDT HEALTHCARE LAB Blood Capillary blood specimen / Unknown 11/07/2024 6:25 AM EDT 11/07/2024 6:27 AM EDT Nathaly Nowak MD LAB POINT OF CARE TE ST DOCKED DEVICE UNSOLICITED RESULTS Final Result Performing Organization Address [facility] Co de Phone Number [facility] [address] [place] [address] * (ABNORMAL) POCT glucose meter (11/07/2024 5:03 [...] Comment 11/07/2024 5:08 AM EDT HEALTHCARE LAB Carry Out Clerk And Shelf Stocker ID Nelda Gerber 11/08/19 5:08 AM EDT HEALTHCARE LAB Device ID [id number] 11/07/2024 5:08 AM EDT HEALTHCARE LAB Specimen Type POC Capillary 11/07/2024 5:08 AM EDT HEALTHCARE LAB Blood Capillary blood specimen / Unknown 11/07/2024 5:03 AM EDT 11/07/2024 5:08 AM EDT Nathaly Nowak MD LAB POINT OF CARE TE ST DOCKED DEVICE UNSOLICITED RESULTS Final Result Performing Organization Address City/[facility]/ZIP Co de Phone Number [facility] [address] [place] [address] * (ABNORMAL) POCT glucose meter (11/07/2024 4:16 [...] Comment 11/07/2024 4:18 AM EDT HEALTHCARE LAB Carry Out Clerk And Shelf Stocker ID Nelda Gerber 11/08/19 4:18 AM EDT [facility] Device ID [id number] 11/07/2024 4:18 AM EDT [facility] Specimen Type POC Capillary 11/07/2024 4:18 AM EDT [facility] Blood Capillary blood specimen / Unknown 11/07/2024 4:16 AM EDT 11/07/2024 4:18 AM EDT us Nathaly Nowak MD LAB POINT OF CARE TE ST DOCKED DEVICE UNSOLICITED RESULTS Final Result Performing Organization Address City/State/[facility] Co de Phone Number HEALTHCARE LAB [address] [place] [address] * (ABNORMAL) POCT glucose meter (11/07/2024 3:21 [...] for testing. Comment 11/07/2024 3:23 AM EDT [facility] Carry Out Clerk And Shelf Stocker ID Nelda Gerber 11/08/19 3:23 AM EDT [facility] LAB Device ID [id number] 11/07/2024 3:23 AM EDT HEALTHCARE LAB Specimen Type POC Capillary 11/07/2024 3:23 AM EDT [facility] Blood Capillary blood specimen / Unknown 11/07/2024 3:21 AM EDT 11/07/2024 3:23 AM EDT Nathaly Nowak MD LAB POINT OF CARE TE ST DOCKED DEVICE UNSOLICITED RESULTS Final Result [facility] [address] [place] [address] * (ABNORMAL) POCT glucose meter (11/07/2024 2:10 [...] Comment 11/07/2024 2:12 AM EDT HEALTHCARE LAB Carry Out Clerk And Shelf Stocker ID Nelda Gerber 11/08/19 2:12 AM EDT HEALTHCARE LAB Device ID [id number] 11/07/2024 2:12 AM EDT [facility] Specimen Type POC Capillary 11/07/2024 2:12 AM EDT [facility] Blood Capillary blood specimen / Unknown 11/07/2024 2:10 AM EDT 11/07/2024 2:12 AM EDT Nathaly Nowak MD LAB POINT OF CARE TE ST DOCKED DEVICE UNSOLICITED RESULTS Final Result [facility] [address] [place] [address] * (ABNORMAL) POCT glucose meter (11/07/2024 1:08 [...] Comment 11/07/2024 1:10 AM EDT HEALTHCARE LAB Carry Out Clerk And Shelf Stocker ID Nelda Gerber 11/08/19 1:10 AM EDT HEALTHCARE LAB Device ID [id number] 11/07/2024 1:10 AM EDT HEALTHCARE LAB Specimen Type POC Capillary 11/07/2024 1:10 AM EDT HEALTHCARE LAB Blood Capillary blood specimen / Unknown 11/07/2024 1:08 AM EDT 11/07/2024 1:10 AM EDT us Nathaly Nowak MD LAB POINT OF CARE TE ST DOCKED DEVICE UNSOLICITED RESULTS Final Result Performing Organization Address City/State/[facility] Co de Phone Number HEALTHCARE LAB [address] [place] [address] * (ABNORMAL) POCT glucose meter (11/07/2024 12:10 [...] Comment 11/07/2024 12:13 AM EDT HEALTHCARE LAB Carry Out Clerk And Shelf Stocker ID Nelda Gerber 11/08/19 12:13 AM EDT HEALTHCARE LAB Device ID [id number] 11/07/2024 12:13 AM EDT HEALTHCARE LAB Specimen Type POC Capillary 11/07/2024 12:13 AM EDT HEALTH[facility]ARE LAB Blood Capillary blood specimen / Unknown 11/07/2024 12:10 AM EDT 11/07/2024 12:13 AM EDT us Nathaly Nowak MD LAB POINT OF CARE TE ST DOCKED DEVICE UNSOLICITED RESULTS Final Result [facility] [address] [place] [address] * (ABNORMAL) POCT glucose meter (11/06/2024 11:14 PM EDT) [facility] POCT Glucose 71(L) 74 - 99 [...] for testing. Comment 11/06/2024 11:16 PM EDT [facility] Carry Out Clerk And Shelf Stocker ID Nelda Gerber 11/07/19 25 11:16 PM EDT [facility] Device ID [id number] 11/06/2024 11:16 PM EDT [facility] Specimen Type POC Capillary 11/06/2024 11:16 PM EDT [facility] Blood Capillary blood specimen / Unknown 11/06/2024 11:14 PM EDT 11/06/2024 11:16 PM EDT Nathaly Nowak MD LAB POINT OF CARE TE ST DOCKED DEVICE UNSOLICITED RESULTS Final Result [facility] [address] [place] [address] * (ABNORMAL) POCT glucose meter (11/06/2024 10:07 PM EDT) [facility] POCT Glucose 140(H) 74 - 99 [...] 11/06/2024 10:09 PM EDT [facility] Carry Out Clerk And Shelf Stocker ID Nelda Gerber 11/07/19 10:09 PM EDT HEALTHCARE LAB Device ID [id number] 11/06/2024 10:09 PM EDT HEALTHCARE LAB Specimen Type POC Capillary 11/06/2024 10:09 PM EDT HEALTHCARE LAB Blood Capillary blood specimen / Unknown 11/06/2024 10:07 PM EDT 11/06/2024 10:09 PM EDT Nathaly Nowak MD LAB POINT OF CARE TE ST DOCKED DEVICE UNSOLICITED RESULTS Final Result Performing Organization Address City/[facility]/ZIP Co de Phone Number HEALTHCARE LAB [address] [place] [address] * (ABNORMAL) POCT glucose meter (11/06/2024 8:22 [...] Comment 11/06/2024 8:25 PM EDT HEALTHCARE LAB Carry Out Clerk And Shelf Stocker ID Nelda Gerber 11/07/19 8:25 PM EDT HEALTHCARE LAB Device ID [id number] 11/06/2024 8:25 PM EDT HEALTHCARE LAB Specimen Type POC Capillary 11/06/2024 8:25 PM EDT HEALTHCARE LAB Blood Capillary blood specimen / Unknown 11/06/2024 8:22 PM EDT 11/06/2024 8:25 PM EDT Nathaly Nowak MD LAB POINT OF CARE TE ST DOCKED DEVICE UNSOLICITED RESULTS Final Result Performing Organization Address City/[facility]/ZIP Co de Phone Number [facility] [address] [place] [address] * (ABNORMAL) POCT glucose meter (11/06/2024 7:31 PM EDT) [facility] POCT Glucose 359(H) 74 - 99 [...] Comment 11/06/2024 7:32 PM EDT HEALTHCARE LAB Carry Out Clerk And Shelf Stocker ID Nelda Gerber 11/07/19 7:32 PM EDT HEALTHCARE LAB Device ID [id number] 11/06/2024 7:32 PM EDT HEALTHCARE LAB Specimen Type POC Capillary 11/06/2024 7:32 PM EDT [facility] Blood Capillary blood specimen / Unknown 11/06/2024 7:31 PM EDT 11/06/2024 7:32 PM EDT Nathaly Nowak MD LAB POINT OF CARE TE ST DOCKED DEVICE UNSOLICITED RESULTS Final Result Performing Organization Address City/State/[facility] Co de Phone Number HEALTHCARE LAB [address] [place] [address] * (ABNORMAL) POCT glucose meter (11/06/2024 6:15 PM EDT) [facility] POCT Glucose 368(H) 74 - 99 [...] Comment 11/06/2024 6:17 PM EDT HEALTHCARE LAB Carry Out Clerk And Shelf Stocker ID Estefani Sheth 11/06/2024 6:17 PM EDT HEALTHCARE LAB Device ID [id number] 11/06/2024 6:17 PM EDT HEALTHCARE LAB Specimen Type POC Capillary 11/06/2024 6:17 PM EDT HEALTHCARE LAB Blood Capillary blood specimen / Unknown 11/06/2024 6:15 PM EDT 11/06/2024 6:17 PM EDT Nathaly Nowak MD LAB POINT OF CARE TE ST DOCKED DEVICE UNSOLICITED RESULTS Final Result Performing Organization Address City/[facility] Co de Phone Number HEALTHCARE LAB [address] [place] [address] * (ABNORMAL) POCT glucose meter (11/06/2024 4:57 [...] for testing. Comment 11/06/2024 4:58 PM EDT [facility] Carry Out Clerk And Shelf Stocker ID Estefani Sheth 11/06/2024 4:58 PM EDT HEALTHCARE LAB Device ID [id number] 11/06/2024 4:58 PM EDT [facility] Specimen Type POC Capillary 11/06/2024 4:58 PM EDT [facility] Blood Capillary blood specimen / Unknown 11/06/2024 4:57 PM EDT 11/06/2024 4:58 PM EDT Nathaly Nowak MD LAB POINT OF CARE TE ST DOCKED DEVICE UNSOLICITED RESULTS Final Result Performing Organization Address City/[facility]/ZIP Co de Phone Number [facility] [address] [place] [address] * (ABNORMAL) POCT glucose meter (11/06/2024 2:08 [...] Comment 11/06/2024 2:09 PM EDT HEALTHCARE LAB Carry Out Clerk And Shelf Stocker ID Brigitte Castellon 11/06/2024 2:09 PM EDT HEALTHCARE LAB Device ID [id number] 11/06/2024 2:09 PM EDT HEALTHCARE LAB Specimen Type POC Capillary 11/06/2024 2:09 PM EDT HEALTHCARE LAB Blood Capillary blood specimen / Unknown 11/06/2024 2:08 PM EDT 11/06/2024 2:09 PM EDT Nathaly Nowak MD LAB POINT OF CARE TE ST DOCKED DEVICE UNSOLICITED RESULTS Final Result [facility]ARE [facility] [address] [place] [address] * (ABNORMAL) POCT glucose meter (11/06/2024 12:27 PM EDT) [facility] POCT Glucose 228(H) 74 - 99 [...] Comment 11/06/2024 12:28 PM EDT HEALTHCARE LAB Carry Out Clerk And Shelf Stocker ID Jacinta Galloway 11/06/2024 12:28 PM EDT HEALTHCARE LAB Device ID [id number] 11/06/2024 12:28 PM EDT HEALTHCARE LAB Specimen Type POC Capillary 11/06/2024 12:28 PM EDT HEALTHCARE LAB Blood Capillary blood specimen / Unknown 11/06/2024 12:27 PM EDT 11/06/2024 12:28 PM EDT Nathaly Nowak MD LAB POINT OF CARE TE ST DOCKED DEVICE UNSOLICITED RESULTS Final Result [facility] [address] [place] [address] * (ABNORMAL) Tissue Culture and Gram Stain (11/06/2024 11:34 AM EDT) Culture Moderate Growth 7:35 AM EDT [facility] Culture 2+ Enterobacter cloacae complex(A) ANGÉLICA 11/15/2024 7:35 AM EDT [facility] Comment: This isolate has been identified using the FDA Approved [employer] [place] System The organism value for this result has been updated. These results have been appended to the previously preliminary verified report. Edited result: Previously reported as Gram Negative Jesus on 11/07/2024 at 1434 EDT. Culture 2+ Streptococcus mitis/oralis group(A) ANGÉLICA 11/15/2024 7:35 AM EDT [facility] Comment: This isolate has been identified using the FDA Approved [employer] Sur[employer] App[employer] [place] System The organism value for this result has been updated. These results have been appended to the previously preliminary verified report. Culture 2+ Pasteurella stomatis(A) ANGÉLICA 11/15/2024 7:35 AM EDT [facility] Comment: This result was determined by MALDI tof mass spectrometry using the Nobel Hygiene database and is for research use only. [...] [facility] [address] [place] [address] * (ABNORMAL) Anaerobic Culture (11/06/2024 11:34 AM EDT) Culture No anaerobes isolated 11/14/2024 1:25 PM EDT [facility] Culture Staphylococcus pseudintermedius( A) 11/14/2024 1:25 PM EDT [facility] Comment: This result was determined by MALDI tof mass spectrometry using the Nobel Hygiene database and is for research use only. [...] Susceptible Nathaly Nowak MD LAB MICROBIOLOGY - [facility] ATIYA FRITZ Edited Result - Final Performing Organization Address [facility]/ZIP Co de Phone Number [facility] [address] [place] [address] * (ABNORMAL) Routine Culture and Gram Stain (11/06/2024 11:29 AM EDT) Culture Moderate Growth 5:29 PM EDT [facility] Culture Enterobacter cloacae complex(A) 11/08/2024 5:29 PM EDT [facility] Comment: This isolate has been identified using the FDA Approved [employer] [place] System For susceptibility results refer to: - [id number] The organism value for this result has [...] Performing Organization Address [facility]/ZIP Co de Phone Number [facility] [address] [place] [address] * Fungal Culture, Routine (11/06/2024 11:29 AM EDT) Culture No Fungal Growth at 1 Week 11/13/2024 8:29 AM EDT [facility] Swab Topography unknown / Unknown 11/06/2024 11:29 AM EDT 11/06/2024 12:19 PM EDT Comment:Pre-op diagnosis: Surgical wound infection [T81.49XA] Nathaly Nowak MD LAB MICROBIOLOGY - GENERAL ATIYA AIXAONEIDA Final Result [facility] [address] [place] [address] * (ABNORMAL) Anaerobic Culture (11/06/2024 11:29 AM EDT) Culture No anaerobes isolated 11/14/2024 1:25 PM EDT [facility] Culture Streptococcus mitis/oralis group(A) 11/14/2024 1:25 PM EDT [facility] Comment: This result was determined by MALDI tof mass spectrometry using the Nobel Hygiene database and is for research use only. [...] has been identified using the FDA Approved [employer] [place] System This is an appended report. [...] Edited Result - Final Performing Organization Address City/[facility]/ZIP Co de Phone Number [facility] [address] [place] [address] * Routine Culture and Gram Stain (11/06/2024 [...] MICROBIOLOGY - GENERAL ATIYA FRITZ Final Result [facility] [address] [place] [address] * Fungal Culture, Routine (11/06/2024 11:28 AM EDT) Culture No Fungal Growth at 1 Week 11/13/2024 8:29 AM EDT [facility] Swab Topography unknown / Unknown 11/06/2024 11:28 AM EDT 11/06/2024 12:20 PM EDT Comment:Pre-op diagnosis: Surgical wound infection [T81.49XA] Nathaly Nowak MD LAB MICROBIOLOGY - [facility] LAM Final Result Performing Organization Address [facility] Co de Phone Number [facility] [address] [place] [address] * Anaerobic Culture (11/06/2024 11:28 AM EDT) Culture No growth at day 4 11/13/2024 12:53 PM EDT [facility] Swab Topography unknown / Unknown 11/06/2024 11:28 AM EDT 11/06/2024 12:20 PM EDT Comment:Pre-op diagnosis: Surgical wound infection [T81.49XA] Nathaly Nowak MD LAB MICROBIOLOGY - [facility] ATIYA FRITZ Final Result Performing Organization Address [facility] [place] [address] * (ABNORMAL) POCT glucose meter (11/06/2024 10:16 [...] 11/06/2024 10:18 AM EDT [facility] Carry Out Clerk And Shelf Stocker ID Lacy Griffin 11/07/19 25 10:18 AM EDT HEALTHCARE LAB Device ID [id number] 11/06/2024 10:18 AM EDT HEALTHCARE LAB Specimen Type POC Capillary 11/06/2024 10:18 AM EDT HEALTHCARE LAB Blood Capillary blood specimen / Unknown 11/06/2024 10:16 AM EDT 11/06/2024 10:18 AM EDT Nathaly Nowak MD LAB POINT OF CARE TE ST DOCKED DEVICE UNSOLICITED RESULTS Final Result Performing Organization Address City/[facility] de Phone Number HEALTHCARE LAB [address] [place] [address] * (ABNORMAL) POCT glucose meter (11/06/2024 5:58 [...] for testing. Comment 11/06/2024 6:01 AM EDT [facility] Carry Out Clerk And Shelf Stocker ID Raj Laird 11/07/19 6:01 AM EDT [facility] Device ID [id number] 11/06/2024 6:01 AM EDT [facility] Specimen Type POC Capillary 11/06/2024 6:01 AM EDT [facility] Blood Capillary blood specimen / Unknown 11/06/2024 5:58 AM EDT 11/06/2024 6:01 AM EDT Nathaly Nowak MD LAB POINT OF CARE TE ST DOCKED DEVICE UNSOLICITED RESULTS Final Result Performing Organization Address City/[facility] Co de Phone Number [facility] [address] [place] [address] * (ABNORMAL) POCT glucose meter (11/06/2024 5:36 [...] Comment 11/06/2024 5:38 AM EDT HEALTHCARE LAB Carry Out Clerk And Shelf Stocker ID Shahid Sanches 11/06/2024 5:38 AM EDT HEALTHCARE LAB Device ID [id number] 11/06/2024 5:38 AM EDT HEALTHCARE LAB Specimen Type POC Capillary 11/06/2024 5:38 AM EDT [facility] Blood Capillary blood specimen / Unknown 11/06/2024 5:36 AM EDT 11/06/2024 5:38 AM EDT us Nathaly Nowak MD LAB POINT OF CARE TE ST DOCKED DEVICE UNSOLICITED RESULTS Final Result Performing Organization Address [facility] Co de Phone Number [facility] [address] [place] [address] * (ABNORMAL) Hemoglobin A1c (11/06/2024 1:07 AM [...] Adults <6.0% Children and Adolescents <7.5% Source: [place] [employer]. Standards of medical care in diabetes,2017. Diabetes Care.2017:40 (suppl 1):S1-S135. us Nathaly Nowak MD LAB BLOOD ORDERABLES Final Resu lt Performing Organization Address City/[facility]/ZIP Co de Phone Number [facility] [address] [place] [address] * Blood Culture (Aerobic/Anaerobet Set) (11/06/2024 1:07 AM EDT) Culture No growth at day 5 11/11/2024 2:49 AM EDT [facility] Blood Structure of right hand / Unknown Venipuncture / Unknown 11/06/2024 1:07 AM EDT 11/06/2024 2:36 AM EDT Nathaly Nowak MD LAB MICROBIOLOGY - GENERAL ORDE RABONEIDA Final Result Performing Organization Address [facility]/ZIP Co de Phone Number [facility] [address] [place] [address] * Blood Culture (Aerobic/Anaerobet Set) (11/06/2024 1:07 AM EDT) Culture No growth at day 5 11/11/2024 3:01 AM EDT [facility] Blood Structure of antecubital vein / Unknown Venipuncture / Unknown 11/06/2024 1:07 AM EDT 11/06/2024 2:36 AM EDT us Nathaly Nowak MD LAB MICROBIOLOGY - GENERAL ORDE LAM Final Result Performing Organization Address City/[facility]/ZIP Co de Phone Number [facility] [address] [place] [address] * (ABNORMAL) Basic metabolic panel (11/06/2024 1:07 [...] [facility] [address] [place] [address] * Phosphorus (11/06/2024 1:07 AM EDT) Phosphorus, Plasma 3.2 2.5 - 4.5 mg/dL 11/06/2024 1:41 AM EDT [facility] Blood Venous blood specimen / Unknown Venipuncture / Unknown 11/06/2024 1:07 AM EDT 11/06/2024 1:12 AM EDT Nathaly Nowak MD LAB BLOOD ORDERABLES Final Resu lt [facility] [address] [place] [address] * Magnesium (11/06/2024 1:07 AM EDT) Magnesium, Plasma 2.2 1.9 - 2.4 mg/dL 11/06/2024 1:41 AM EDT [facility] Blood Venous blood specimen / Unknown Venipuncture / Unknown 11/06/2024 1:07 AM EDT 11/06/2024 1:12 AM EDT us Nathaly Nowak MD LAB BLOOD ORDERABLES Final Resu lt [facility] [address] [place] [address] * (ABNORMAL) CBC (11/06/2024 1:07 AM EDT) [...] lt Performing Organization Address [facility]/ZIP Co de Phone Number [facility] [address] [place] [address] * Gold Top (11/06/2024 12:58 AM EDT) Extra Hold for add-ons 11/06/2024 3:21 AM EDT [facility] Comment:Auto resulted. Blood Venous blood specimen / Unknown 11/06/2024 12:58 AM EDT 11/06/2024 1:13 AM EDT us Nathaly Nowak MD LAB BLOOD ORDERABLES Final Resu lt Performing Organization Address [facility] Co de Phone Number [facility] [address] [place] [address] * Gold Top (11/06/2024 12:58 AM EDT) Extra Hold for add-ons 11/06/2024 3:21 AM EDT [facility] Comment:Auto resulted. Blood Venous blood specimen / Unknown 11/06/2024 12:58 AM EDT 11/06/2024 1:13 AM EDT us Nathaly Nowak MD LAB BLOOD ORDERABLES Final Resu lt Performing Organization Address City/[facility] Co de Phone Number [facility] [address] [place] [address] * Light Green Top (11/06/2024 12:58 AM EDT) Extra Hold for add-ons 11/06/2024 3:21 AM EDT [facility] Comment:Auto resulted. Blood Venous blood specimen / Unknown 11/06/2024 12:58 AM EDT 11/06/2024 1:13 AM EDT us Nathaly Nowak MD LAB BLOOD ORDERABLES Final Resu lt Performing Organization Address [facility] Co de Phone Number [facility] [address] [place] [address] * Light Blue Top (11/06/2024 12:58 AM EDT) Extra Hold for add-ons 11/06/2024 3:21 AM EDT [facility] Comment:Auto resulted. Blood Venous blood specimen / Unknown 11/06/2024 12:58 AM EDT 11/06/2024 1:13 AM EDT Nathaly Nowak MD LAB BLOOD ORDERABLES Final Resu lt Performing Organization Address [facility] de Phone Number [facility] [address] [place] [address] * Light Blue Top (11/06/2024 12:58 AM EDT) Extra Hold for add-ons 11/06/2024 3:21 AM EDT [facility] Comment:Auto resulted. Blood Venous blood specimen / Unknown 11/06/2024 12:58 AM EDT 11/06/2024 1:13 AM EDT Nathaly Nowak MD LAB BLOOD ORDERABLES Final Resu lt Performing Organization Address [facility] de Phone Number [facility] [address] [place] [address] * (ABNORMAL) POCT glucose meter (11/06/2024 12:45 AM EDT) POCT Glucose 204(H) 74 - 99 mg/dL 11/06/2024 12:48 AM EDT [facility] Comment:Accuracy of a glucos e result [...] Comment 11/06/2024 12:48 AM EDT [facility] Carry Out Clerk And Shelf Stocker ID Raj Laird 11/07/19 12:48 AM EDT [facility] Device ID [id number] 11/06/2024 12:48 AM EDT [facility] Specimen Type POC Capillary 11/06/2024 12:48 AM EDT [facility] Blood Capillary blood specimen / Unknown 11/06/2024 12:45 AM EDT 11/06/2024 12:48 AM EDT us Nathaly Nowak MD LAB POINT OF CARE TE ST DOCKED DEVICE UNSOLICITED RESULTS Final Result Performing Organization Address City/State/[facility] Co de Phone Number [facility] [address] [place] [address] documented in this encounter Visit Diagnoses Diagnosis [...] needed, Starting on Mon11/06/24 at 0031, Until [facility] 11/14/24 at 1804, Routine, line care [...] Provider: Devora F Bo)1356 (Given - Provider: [facility] Bo)1805 (Given - Provider: [facility] Bo)212 (Given - Provider: Jonathan Vale RN) 0838 (Given - Provider: [facility] Bo)1317 (Given - Provider: [facility] Bo)1753 (Given - Provider: [facility] Bo)203 (Given - Provider: Jonathan Vale [...] Jonathan Vale RN) 0838 (Given - Provider: [facility] Bo)203 (Given - Provider: Jonathan Vale RN) 0856 (Given - Provider: Yazmin Bhatt RN) metroNIDAZOLE (Flagyl) tablet 500 mg (CANCELED) 500 mg, Oral, 3 times daily, First dose on Mon11/07/24 at 2000, Until Discontinued, Routine 0940 (Given - Provider: Devora Criss Bo)1805 (Given - Provider: [facility] Bo)2122 (Given - Provider: Jonathan Vale [...] Jonathan Vale RN) 0856 (Given - Provider: Yazimn Bhatt, CHRISTIAN) sodium chloride 0.9 % flush [...] documented as of this encounter Care Teams Profiling Machine Operator Relationship Specialty Start Date End Date Asad Victor MD [address] [place] [address] PCP - General 10/07/22 documented as of this encounter
--- OUTSIDE RECORDS SUMMARY | 2024-11-06 10:08 | XMS_ITS | Encounter Summary ---
Author Organization Healthcare Address [address] [place] [address] Care Team Providers Care Glue Maker Bone Name Role Phone Asad Victor MD Primary Care Provider + [phone] Reason for Visit * Reason Comments Post-op Problem Wound Check * Auth/Cert (Routine) Specialty Diagnoses / Procedures Referred By Contac t Referred To Contact Diagnoses Wound infection Post-op Vasc Sx wounds - sx on 10/17 at Nathaly Nowak MD [address] [address] Phone: tel: fax: [facility] [address] [place] [address] Phone: tel: Referral ID Status Reason Start Date Expiration Date Visits Re quested Visits Authorized [id number] 1 1 Encounter Details Date Type Department Care Team (Late st Contact Info) Description 11/06/2024 10:08 AM EDT - 11/06/2024 11:38 AM EDT Surgery [facility] OPERATING ROOM [address] [place] [address] Nathaly Nowak MD [id number] [place] [address] Left groin exploration and washout, [...] time in the past [address] [facility], were you homeless or living [...] drink first t dnio in the morning (EYE-AGRICULTURE LABORATORY TECHNICIAN) to steady your nerves or to get rid of a hangover? 0 10/18/2021 CAGE Questionnaire Score 0 022 Utilities Answer Date Recorded In the past 12 months has [employer], gas, oil, or water [employer] threatened to shut off services in your [...] Carmona with any questions or concerns at [phone]. It is important that you get your [...] Note Bev Bobby 64 y.o. 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 Please arrive at 11 am daily. [place] [address] Go to Wound care clinic. First appointment is 1:10 pm. Please call [phone] with scheduling concerns. Discharge Transportation: Transportation Anticipated: medical transport Transportation Home at Discharge: Medical Transport Follow Up Transport: Transportation Needed to Follow up Appoinments: Medical Transport Additional Comments: Patient discharging home. No other SW needs identified. Mariia Macedo REGIONAL SALES LEADER * Hospital Course - Melecio Echevarria DO - 11/14/2024 10:25 AM EDT Mr. Bobby is a 64 y/o male that presented to [facility] on 11/06/2024 for surgical wound infection [...] Note Bev Bobby 64 y.o. male CSN: [id number] Admission: 11/05/2024 9:45 PM Primary Problem: Wound infection Wound vac to be delivered today by at bedside. SW sent referral/orders to [facility] wound care center (fax [phone]) and infusion clinic (fax [phone]). Plan to discharge tomorrow. SW will continue to follow. Mariia Macedo REGIONAL SALES LEADER * Progress Notes - Bianca Knight, PharmD - 11/13/2024 12:55 PM EDT Vancomycin therapy has been stopped per ID recommendation. Pharmacist will sign off from dosing and monitoring vancomycin. Please re- consult a pharmacist if more vancomycin is indicated. Bianca Knight PharmD, [facility] * Progress Notes - Ailin [...] Lumen PICC Antimicrobial Regimen: IV Ertapenem 1g [id number] start date:11/06/2024 Projected End date:12/18/2024 IV Micafungin 150mg [id number] Start date: 11/12/2024 Projected End Date: 12/24/2024 [...] OPAT Team Attn: Dr Kraus Fax #: [phone] Appointments: (Dr Appiah 08/02/2024 at 2.30pm) at: [facility]: [address] [place] [address] (Select Option 3 for IV Antibiotic / PICC line related issues) For questions regarding OPAT prior to discharge, reach out to the OPAT team via [employer] Secure Chat (Group: OPAT Referral Team). For all questions regarding OPAT after discharge should be directed to the OPAT Team at (Select Option 3 for IV Antibiotics/PICC Issues) between 8am-5pm. After 5 pm, or during weekends/ holidays, please call the paging photostat operator helper at to reach the on-call ID fellow. [...] the findings. Cardiac Device Check - PRE[facility] EP-[facility]: Pre-operative CIED Report Assessment and Sara-Procedural Reommendations: Name: Bev Bobby Date: 10/17/2024 : 1960 Age: 64 y.o. Patient has a Caustic Cresylate Shift Superintendent: Berger CONCRETE FINISHING MACHINE OPERATOR-PM Remaining battery longevity adequate. Lead [...] recommendations. Supporting reports can be found in [employer] media file. Micro: Susceptibility data from last [...] Units Date/Time Tissue Culture and Gram Stain [[id number]] (Abnormal) (Susceptibility) Collected: 11/06/24 1134 Order Status: Completed Specimen: Tissue from Other (specify site) Updated: 11/12/24 1334 Culture Moderate Growth 2+ Enterobacter cloacae complex Comment: This isolate has been identified using the FDA Approved China[employer].comyper [place] System The organism value for this result has been updated. These results have been appended to the previously preliminary verified report. Edited result: Previously reported as Gram Negative Jesus on 11/07/2024 at 1434 EDT. 2+ Streptococcus mitis/oralis group Comment: This isolate has been identified using the FDA Approved MALDI Deligicyper CA System The organism value for this result has been updated. These results have been appended to the previously preliminary verified report. 2+ Pasteurella stomatis Comment: This result was determined by MALDI tof mass spectrometry using the [employer] database and is for research use [...] stewardship team. Comprehensive GI Panel by PCR [[id number]] (Normal) Collected: 11/12/24 0950 Order Status: Completed [...] if clinically indicated. Clostridiodes (Clostridium) difficile PCR [[id number]] (Normal) Collected: 11/12/24 0950 Order Status: Completed [...] high complexity clinical laboratory testing. Anaerobic Culture [[id number]] Collected: 11/06/24 1128 Order Status: Completed Specimen: Swab from Other (specify site) Updated: 11/12/24 1118 Culture No growth at day 4 Fungal Culture, Tissue and ISIDRO [[id number]] (Abnormal) Collected: 11/06/24 1134 Order Status: Completed Specimen: Tissue from Other (specify site) Updated: 11/12/24 1033 Culture Reading Mycological 4 Weeks Rare Ames Sana parapsilosis Comment: This isolate has been identified using the FDA Approved Agric[employer]er CA System The organism value for this result has been updated. These results have been appended to the previously preliminary verified report. Edited result: Previously reported as Yeast on 11/11/2024 at 1317 EDT. ISIDRO No fungal elements seen Additional Susceptibilities and/or Identification [[id number]] Collected: 11/11/24 1240 Order Status: Completed Specimen: Tissue from Wound (specify site): Additional Susceptibilities and/or Identification [[id number]] Collected: 11/11/24 1238 Order Status: Completed Specimen: Tissue from Wound (specify site): Additional Susceptibilities and/or Identification [[id number]] Collected: 11/11/24 1237 Order Status: Completed Specimen: Tissue from Wound (specify site): AFB Culture, Non Respiratory Source and Acid Fast Stain [[id number]] Collected: 11/06/24 1134 Order Status: Completed Specimen: Tissue from Other (specify site) Updated: 11/11/24 0938 AFB Culture No Mycobacterial Growth <1 Week Acid Fast Stain No acid fast bacilli seen Blood Culture (Aerobic/Anaerobet Set) [[id number]] Collected: 11/06/24106 Order Status: Completed Specimen: Blood from AC, Left Updated: 11/11/24 0301 Culture No growth at day 5 Blood Culture (Aerobic/Anaerobet Set) [[id number]] Collected: 11/06/24106 Order Status: Completed Specimen: Blood [...] On 11/06, pt went to the [facility] vascular surgery for left groin exploration and [...] Note Bev Bobby 64 y.o. male CSN: [id number] Room/Bed 682/682B Nutrition evaluation type: assessment Reason for evaluation: LOS Hospital course: 64 y.o. male with PMHx significant for COPD, CAD s/p PCI (on Xarelto) s/p pacemaker c/b left SANDIP pseudoaneurysm s/p thrombin injection 09/21/24, chronic limb ischemia s/p left femoralendarterectomy with external iliac/common femoral artery stenting 10/17/24, T2DM, HLD, HTN, RLS who presented to the [facility] on 11/05/2024 with problems with his [...] (194 lb 3.6 oz) BMI (Calculated): 30.41 [place] Body Weight (kg): 67.3 Percent [place] Body Weight: 131 Adjusted Body Weight (kg): [...] oz) Estimated Needs: Kcal/ K-30 Kcal Provided: 2870-4753 Kcal Needs Based On: Adjusted weight Gm Protein/ Kg : 1.2-1.5 Protein Provided: 87-108 Protein Needs Based On: Adjusted weight Metabolic Cart Study Results: Current Nutrition Intake: Diet Order: Adult Diet Diet Texture: Regular Adult Carbohydrate Restriction: Consistent CHO 1 (0126-0389 Jatinder, 65 g/meal) Percent Meals Eaten (%): [...] ENDARTERECTOMY N/A 2017 Endarterectomy Carotid Artery from [facility] CORONARY ANGIOPLASTY Left Coronary Angiography With Concomitant Left Heart Catheterization from [facility] CORONARY ARTERY BYPASS GRAFT N/A 2018 3V ELBOW SURGERY Right ENDARTERECTOMY Left 10/17/2024 common/SFA/Profunda thromboendarterectomy, EIA/WIRED MUSIC OPERATOR stent HERNIA REPAIR KNEE ARTHROSCOPY Left VASCULAR SURGERY Left 09/21/2024 WIRED MUSIC OPERATOR pseudoaneurym injection [3] Social History Tobacco [...] the findings. Cardiac Device Check - [facility] EP-[facility]: Pre-operative CIED Report Assessment and Sara-Procedural Reommendations: Name: Bev Bobby Date: 10/17/2024 : 1960 Age: 64 y.o. 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 Lead [...] recommendations. Supporting reports can be found in [employer] media file. Micro: Susceptibility data from last [...] Units Date/Time Tissue Culture and Gram Stain [[id number]] (Abnormal) (Susceptibility) Collected: 11/06/24 1134 Order Status: Completed Specimen: Tissue from Other (specify site) Updated: 11/12/24 1334 Culture Moderate Growth 2+ Enterobacter cloacae complex Comment: This isolate has been identified using the FDA Approved [employer] CA System The organism value for this result has been updated. These results have been appended to the previously preliminary verified report. Edited result: Previously reported as Gram Negative Jesus on 11/07/2024 at 1434 EDT. 2+ Streptococcus mitis/oralis group Comment: This isolate has been identified using the FDA Approved MALDI Deligicyper CA System The organism value for this result has been updated. These results have been appended to the previously preliminary verified report. 2+ Pasteurella stomatis Comment: This result was determined by MALDI tof mass spectrometry using the [employer] database and is for research use [...] stewardship team. Comprehensive GI Panel by PCR [[id number]] (Normal) Collected: 11/12/24 0950 Order Status: Completed [...] if clinically indicated. Clostridiodes (Clostridium) difficile PCR [[id number]] (Normal) Collected: 11/12/24 0950 Order Status: Completed [...] high complexity clinical laboratory testing. Anaerobic Culture [[id number]] Collected: 11/06/24 1128 Order Status: Completed Specimen: Swab from Other (specify site) Updated: 11/12/24 1118 Culture No growth at day 4 Fungal Culture, Tissue and ISIDRO [[id number]] (Abnormal) Collected: 11/06/24 1134 Order Status: Completed Specimen: Tissue from Other (specify site) Updated: 11/12/24 1033 Culture Reading Mycological 4 Weeks Rare Ames Sana parapsilosis Comment: This isolate has been identified using the FDA Approved MALDI Deligicyper CA System The organism value for this result has been updated. These results have been appended to the previously preliminary verified report. Edited result: Previously reported as Yeast on 11/11/2024 at 1317 EDT. ISIDRO No fungal elements seen Additional Susceptibilities and/or Identification [[id number]] Collected: 11/11/24 1240 Order Status: Completed Specimen: Tissue from Wound (specify site): Additional Susceptibilities and/or Identification [[id number]] Collected: 11/11/24 1238 Order Status: Completed Specimen: Tissue from Wound (specify site): Additional Susceptibilities and/or Identification [[id number]] Collected: 11/11/24 1237 Order Status: Completed Specimen: Tissue from Wound (specify site): AFB Culture, Non Respiratory Source and Acid Fast Stain [[id number]] Collected: 11/06/24 1134 Order Status: Completed Specimen: Tissue from Other (specify site) Updated: 11/11/24 0938 AFB Culture No Mycobacterial Growth <1 Week Acid Fast Stain No acid fast bacilli seen Blood Culture (Aerobic/Anaerobet Set) [[id number]] Collected: 11/06/24106 Order Status: Completed Specimen: Blood from AC, Left Updated: 11/11/24 0301 Culture No growth at day 5 Blood Culture (Aerobic/Anaerobet Set) [[id number]] Collected: 11/06/24106 Order Status: Completed Specimen: Blood [...] OSH. [facility] and [...] tablet 1,000 mg 1,000 mg Oral q6h COUNT INCLUDES THE [facility] Anthony Reyes MD 1,000 mg at 11/12/24 1356 aspirin chewable tablet 81 mg 81 mg Oral Daily Reid Daniels MD 81 mg at 11/12/24 0938 cefepime (Maxipime) 2 g in sodium chloride 0.9% 100 mL IVPB (vial adapter required) 2 g Finlvgusexrd4e Reid Daniels MD 36.7 mL/hr at 11/12/24 [...] send him home on micafungin as Rare Ames Sana parapsilosis grew and we do not [...] Note Bev Bobby 64 y.o. male CSN: [id number] Admission: 11/05/2024 9:45 PM Primary Problem: Wound infection Patient refusing inpatient placement for IV abx. [facility] infusion clinic can provide treatment. Face sheet, IV abx orders, and order for PICC care/labs/dressing changes need to be faxed to [phone]. Voicemail left with wound care clinic. Wound vac approved per , delivery pending. Cale continue to follow. Mariia Macedo REGIONAL SALES LEADER * Progress Notes - Dotty Sethi MD [...] the findings. Cardiac Device Check - [facility] EP-[facility]: Pre-operative CIED Report Assessment and Sara-Procedural Reommendations: Name: Bev Bobby Date: 10/17/2024 : 1960 Age: 64 y.o. Patient has a Caustic Cresylate Shift Superintendent: Berger CONCRETE FINISHING MACHINE OPERATOR-PM Remaining battery longevity adequate. Lead [...] Non Respiratory Source and Acid Fast Stain [[id number]] Collected: 11/06/24 1134 Order Status: Completed Specimen: Tissue from Other (specify site) Updated: 11/11/24 0938 AFB Culture No Mycobacterial Growth <1 Week Acid Fast Stain No acid fast bacilli seen Blood Culture (Aerobic/Anaerobet Set) [[id number]] Collected: 11/06/24 0107 Order Status: Completed Specimen: Blood from AC, Left Updated: 11/11/24 0301 Culture No growth at day 5 Blood Culture (Aerobic/Anaerobet Set) [[id number]] Collected: 11/06/24 0107 Order Status: Completed Specimen: Blood from Hand, Right Updated: 11/11/24 0249 Culture No growth at day 5 Anaerobic Culture [[id number]] Collected: 11/06/24 1128 Order Status: Completed Specimen: Swab from Other (specify site) Updated: 11/10/24 1441 Culture No growth at day 4 Routine Culture and Gram Stain [[id number]] Collected: 11/06/241127 Order Status: Completed Specimen: Swab from Other (specify site) Updated: 11/10/241123 Culture No growth at day 4 Gram Stain Result No organisms seen No polymorphonuclear leukocytes seen Anaerobic Culture [[id number]] (Abnormal) Collected: 11/06/241128 Order Status: Completed Specimen: Swab from Other (specify site) Updated: 11/10/24 0718 Culture No anaerobes isolated Mixed skin clifton Comment: The organism value for this result has been updated. These results have been appended to the previously preliminary verified report. Narrative: Mixed Skin Cl[place] includes Streptococcus mitis/oralis group and Staphylococcus Pseudintermedius Anaerobic Culture [[id number]] (Abnormal) Collected: 11/06/24 113 Order Status: Completed [...] On 11/06, pt went to the [facility] vascular surgery for left groin exploration and [...] mL IVPB (vial adapter required) 2 g Trqaniperfag1g Reid Daniels MD 36.7 mL/hr at 11/11/24 [...] from the original note were not included. [facility] Department of Surgery Division of Vascular Surgery Surgery Progress Note 11/11/24 Bev Bobby Subjective Subjective: HPI 64yoM PMHx COPD, T2DM, HLD, HTN, RLS, CAD s/p PCI (on Xarelto) s/p pacemaker c/b left SANDIP pseudoaneurysm s/p thrombin injection 09/21/24, CLI s/p left femoral endarterectomy with EIA/WIRED MUSIC OPERATOR stenting 10/17/24, who presented [facility] 09/21/24, CLI s/p left femoral endarterectomy with EIA/WIRED MUSIC OPERATOR stenting 10/17/24, who presented to [facility] [...] to follow, Submitted by: Kalpesh Lord PharmD, [facility] 11/10/2024 12:45 PM * Care [...] 09/21/24, CLI s/p left femoral endarterectomy with EIA/WIRED MUSIC OPERATOR stenting 10/17/24, who presented to [facility] [...] 09/21/24, CLI s/p left femoral endarterectomy with EIA/WIRED MUSIC OPERATOR stenting 10/17/24, who presented to [facility] [...] Barraza RN Authorized by: Nathaly Nowak MD [employer] Protocol: Verbal consent obtained?: Yes Written consent [...] selection rationale: Left pacemaker Catheter Lot #: [id number] Catheter assistant strength coach: RABT Catheter placed: Single lumen Catheter size: 4 Fr Catheter trimmed length: 42 Catheter threaded length: 42 Vein placed in: SVC Catheter cm indwellin Catheter cm outside: 0 Placement confirmed by: [employer]ield 3CG technology Pre-procedure: Landmarks identified Ultrasound guidance: [...] 09/21/24, CLI s/p left femoral endarterectomy with EIA/WIRED MUSIC OPERATOR stenting 10/17/24, who presented to [facility] [...] left SANDPI pseudoaneurysm s/p thrombin injection 09/21/24, CLI s/p left femoral endarterectomy with EIA/WIRED MUSIC OPERATOR stenting 10/17/24, who presented to [facility] [...] Level of Care [place] M4 student [facility] [place] Cosigned by Nathaly Nowak MD at 11/11/2024 [...] PT session. Patient reports he went to [facility] 12th floor via w/c yesterday to [...] Mobility: Ambulatory- community (was utilizing scooter at [employer] since discharge) Mobility [place]: Independent gait with device History of Falls: [...] Mobility Bed Mobility Exam: Scooting/Bridging Level of [place]: Modified independence Bed Mobility Exam: Supine to Sit Level of [place]: Modified [place] Transfers Transfer Exam: Sit to stand Level of [place]: Modified independence Assistive Device: Rollator Transfer Exam: Stand to Sit Level of [place]: Modified independence Assistive Device: Rollator Ambulation Device: [...] Mobility Ambulatory- community (was utilizing scooter at [employer] since discharge) Mobility [place] Independent gait with device History of Falls [...] distal to knee) BED MOBILITY Level of [place] Physical/Non-physical Assist Adaptive Equipment Utilized Scooting/ Bridging Modified independence Supine to Sit Modified [place] TRANSFERS Level of [place] Physical/Non-physical Assist Adaptive Equipment Utilized Sit to Stand Modified independence Rollator Stand to sit Modified independence Rollator Toilet Transfer Modified independence Grab bar FUNCTIONAL MOBILITY Ambulation Modified independent 200ft x2 with seated rest break between bouts; RPE 5-7/10. Cues forsafety with rollator brakes. Rollator Comments BALANCE Postural Appearance Posture: Within Functional Limits Level of [place] Balance Support Static Sit Independent Feet supported [...] needed areas of treatment space. Level of [place] Interventions Grooming Modified independent Standing sinkside Pt [...] Note Bev Bobby 64 y.o. male CSN: [id number] Admission: 11/05/2024 9:45 PM Primary Problem: Wound infection SW went to bedside to discuss placement options for modified OPAT. Per patient, ID stated he would be able to dc home with a PICC and home antibiotics. SW relayed message to team. Wound vac order sent to [facility] at for potential Monday discharge if patient does go home. SW will continue to follow and assist as needed. Mariia Macedo REGIONAL SALES LEADER * Progress Notes - Bianca Knight PharmD [...] to follow, Submitted by: Bianca Knight, PharmD, [facility] 11/08/2024 11:15 AM * Progress Notes - Melecio Echevarria DO - 11/08/2024 7:18 AM EDT Images from the original note were not included. [facility] Department of Surgery Division of Vascular Surgery Surgery Progress Note 11/08/24 Bev Bobby Subjective Subjective: HPI 64yoM PMHx COPD, T2DM, HLD, HTN, RLS, CAD s/p PCI (on Xarelto) s/p pacemaker c/b left SANDIP pseudoaneurysm s/p thrombin injection 09/21/24, CLI s/p left femoral endarterectomy with EIA/WIRED MUSIC OPERATOR stenting 10/17/24, who presented to [facility] [...] of left femoral artery ([facility]) COPD (chronic obstructive pulmonary disease) ([facility]) Overview Signed 10/18/2021 7:30 PM by Gallo Gallardo MD Not on home inhalers A-fib ([facility]) Overview Addendum 10/19/2021 10:39 AM by Giovanna Junior APRN Hold anticoagulation Metoprolol restarted BPH (benign prostatic hyperplasia) Overview Addendum 10/19/2021 10:41 AM by Giovanna Junior APRN Flomax restarted Subarachnoid hemorrhage ([facility]) Overview Addendum 10/20/2021 [...] lumbar vertebra, initial encounter ([facility]) Overview Signed 10/18/2021 [...] 09/21/24, CLI s/p left femoral endarterectomy with EIA/WIRED MUSIC OPERATOR stenting 10/17/24, who presented to [facility] [...] the findings. Cardiac Device Check - [facility] EP-[facility]: Pre-operative CIED Report Assessment and Sara-Procedural Reommendations: Name: Bev Bobby Date: 10/17/2024 : 1960 Age: 64 y.o. Patient has a Caustic Cresylate Shift Superintendent: Berger CONCRETE FINISHING MACHINE OPERATOR-PM Remaining battery longevity adequate. Lead [...] Component Value Units Date/Time Fungal Culture, Routine [[id number]] Collected: 11/06/24 112 Order Status: Completed Specimen: Swab from Other (specify site) Updated: 11/08/24 0919 Culture No Fungal Growth <1 Week Fungal Culture, Routine [[id number]] Collected: 11/06/24 112 Order Status: Completed Specimen: Swab from Other (specify site) Updated: 11/08/24 09 Culture No Fungal Growth <1 Week Fungal Culture, Tissue and ISIDRO [[id number]] Collected: 11/06/24 1134 Order Status: Completed Specimen: Tissue from Other (specify site) Updated: 08/15/25 0912 Culture Reading Mycological 4 Weeks No Fungal Growth <1 Week ISIDRO No fungal elements seen Blood Culture (Aerobic/Anaerobet Set) [[id number]] Collected: 11/06/24106 Order Status: Completed Specimen: Blood from AC, Left Updated: 11/08/24 0302 Culture No growth at day 2 Blood Culture (Aerobic/Anaerobet Set) [[id number]] Collected: 11/06/24106 Order Status: Completed Specimen: Blood from Hand, Right Updated: 11/08/24 0302 Culture No growth at day 2 Tissue Culture and Gram Stain [[id number]] (Abnormal) Collected: 11/06/24 113 Order Status: Completed [...] in pairs Routine Culture and Gram Stain [[id number]] (Abnormal) Collected: 11/06/24 112 Order Status: Completed Specimen: Swab from Other (specify site) Updated: 11/07/24 1426 Culture Moderate Growth Enterobacter cloacae complex Comment: This isolate has been identified using the FDA Approved [employer] [place] System The organism value for this result has been updated. These results have been appended to the previously preliminary verified report. Gram Stain Result No polymorphonuclear leukocytes seen No organisms seen AFB Culture, Non Respiratory Source and Acid Fast Stain [[id number]] Collected: 11/06/24 113 Order Status: Completed Specimen: Tissue from Other (specify site) Updated: 11/07/24 1404 Acid Fast Stain No acid fast bacilli seen Routine Culture and Gram Stain [[id number]] Collected: 11/06/241127 Order Status: Completed Specimen: Swab from Other (specify site) Updated: 11/07/24 0855 Culture No growth at day 1 Gram Stain Result No organisms seen No polymorphonuclear leukocytes seen Anaerobic Culture [[id number]] Collected: 11/06/241127 Order Status: Sent Specimen: Swab from Other (specify site) Updated: 11/06/24 1220 Abscess Culture and Gram Stain [[id number]] Collected: 11/06/241127 Order Status: Canceled Specimen: Swab from Other (specify site) Updated: 11/06/24 1220 Anaerobic Culture [[id number]] Collected: 11/06/24 1129 Order Status: Sent Specimen: Swab from Other (specify site) Updated: 11/06/24 121 Abscess Culture and Gram Stain [[id number]] Collected: 11/06/24 112 Order Status: Canceled Specimen: Swab from Other (specify site) Updated: 11/06/24 121 Anaerobic Culture [[id number]] Collected: 11/06/24 1134 Order Status: Sent Specimen: [...] On 11/06, pt went to the [facility]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 74 - 99 [...] Resu lt [facility] [address] [place] [address] * (ABNORMAL) CBC W/O Differential (11/11/2024 12:56 [...] ORDERABLES Final Resu lt Performing Organization Address City/State/[facility] Co de Phone Number [facility] [address] [place] [address] * (ABNORMAL) POCT glucose meter (11/10/2024 8:25 PM EDT) POCT Glucose 144(H) 74 - 99 mg/dL 11/10/2024 8:28 PM EDT [facility] Comment:Accuracy of [...] Comment 11/10/2024 8:28 PM EDT HEALTHCARE LAB Smoke Eater ID Nelda Gerber 11/11/19 8:28 PM EDT [facility] Device ID [id number] 11/10/2024 8:28 PM EDT HEALTHCARE LAB Specimen Type POC Capillary 11/10/2024 8:28 PM EDT [facility]ARE LAB Blood Capillary blood specimen / Unknown 11/10/2024 8:25 PM EDT 11/10/2024 8:28 PM EDT Nathaly Nowak MD LAB POINT OF CARE TE ST DOCKED DEVICE UNSOLICITED RESULTS Final Result Performing Organization Address City/[facility] Co de Phone Number HEALTHCARE LAB [address] [place] [address] * (ABNORMAL) POCT glucose meter (11/10/2024 4:45 PM EDT) [facility] POCT Glucose 155(H) 74 - 99 mg/dL [...] Comment 11/10/2024 4:47 PM EDT HEALTHCARE LAB Smoke Eater ID Esperanza Parks 11/10/2024 4:47 PM EDT HEALTHCARE LAB Device ID [id number] 11/10/2024 4:47 PM EDT HEALTHCARE LAB Specimen Type POC Capillary 11/10/2024 4:47 PM EDT [facility] LAB Blood Capillary blood specimen / Unknown 11/10/2024 4:45 PM EDT 11/10/2024 4:47 PM EDT us Nathayl Nowak MD LAB POINT OF CARE TE ST DOCKED DEVICE UNSOLICITED RESULTS Final Result Performing Organization Address City/[facility]/ZIP Co de Phone Number HEALTHCARE LAB [address] [place] [address] * (ABNORMAL) POCT glucose meter (11/10/2024 12:13 [...] Comment 11/10/2024 12:14 PM EDT HEALTHCARE LAB Smoke Eater ID Esperanza Parks 11/10/2024 12:14 PM EDT HEALTHCARE LAB Device ID [id number] 11/10/2024 12:14 PM EDT HEALTHCARE LAB Specimen Type POC Capillary 11/10/2024 12:14 PM EDT [facility] Blood Capillary blood specimen / Unknown 11/10/2024 12:13 PM EDT 11/10/2024 12:14 PM EDT us Nathaly Nowak MD LAB POINT OF CARE TE ST DOCKED DEVICE UNSOLICITED RESULTS Final Result Performing Organization Address City/State/[facility] Co de Phone Number HEALTHCARE LAB [address] [place], [place] [address] * Vancomycin, Peak, Plasma Please draw ~2 hours after 0800 dose of vancomycin finishes infusing. Consider obtaining level via peripheral stick. If peripheral stick is not feasible, please ensure that line is flushed well prior to drawing level. Than... (11/10/2024 10:56 AM EDT) Vancomycin, Peak, Plasma 23.8 20.0 - 40.0 ug/mL 11/10/2024 11:25 AM EDT [facility] Blood Venous blood specimen / Unknown Venipuncture / Unknown 11/10/2024 10:56 AM EDT 11/10/2024 11:00 AM EDT Narrative [facility] - 11/10/2024 11:25 AM EDT Therapeutic Peak level: 20-40ug/mL Supra-therapeutic Peak level: >40 ug/mL us Abigail Seay MD LAB BLOOD ORDERABLES Final Res ult Performing Organization Address City/[facility]/ZIP Co de Phone Number [facility] [address] [place] [address] * (ABNORMAL) POCT glucose meter (11/10/2024 8:03 AM EDT) POCT Glucose 174(H) 74 - 99 mg/dL 11/10/2024 8:04 AM EDT [facility] Comment:Accuracy of a glucos e [...] for testing. Comment 11/10/2024 8:04 AM EDT [facility] Smoke Eater ID Esperanza Parks 11/10/2024 8:04 AM EDT [facility] Device ID [id number] 11/10/2024 8:04 AM EDT [facility] Specimen Type POC Capillary 11/10/2024 8:04 AM EDT [facility] Blood Capillary blood specimen / Unknown 11/10/2024 8:03 AM EDT 11/10/2024 8:04 AM EDT us Nathaly Nowak MD LAB POINT OF CARE TE ST DOCKED DEVICE UNSOLICITED RESULTS Final Result Performing Organization Address City/[facility] Co de Phone Number [facility] [address] [place] [address] * Vancomycin, Trough, Plasma Please draw ~30 [...] Res ult [facility] [address] [place] [address] * (ABNORMAL) CBC and Differential (11/10/2024 12:31 [...] 12:31 AM EDT 11/10/2024 12:37 AM EDT [facility] 11/10/2024 12:53 AM EDT Therapeutic decision making should be based on absolute values, rather than percentages. us Nathaly Nowak MD LAB BLOOD ORDERABLES Final Resu lt [facility] [address] [place] [address] * (ABNORMAL) Comprehensive Metabolic Panel, Plasma (11/10/2024 [...] Resu lt [facility] [address] [place] [address] * (ABNORMAL) POCT glucose meter (11/09/2024 8:04 [...] Comment 11/09/2024 8:06 PM EDT [facility]ALTHCARE LAB Smoke Eater ID Maximiliano Hansen II 11/09/2024 8:06 PM EDT HEALTHCARE LAB Device ID [id number] 11/09/2024 8:06 PM EDT HEALTHCARE LAB Specimen Type POC Capillary 11/09/2024 8:06 PM EDT [facility]ARE LAB Blood Capillary blood specimen / Unknown 11/09/2024 8:04 PM EDT 11/09/2024 8:06 PM EDT Nathaly Nowak MD LAB POINT OF CARE TE ST DOCKED DEVICE UNSOLICITED RESULTS Final Result Performing Organization Address City/[facility] Co de Phone Number HEALTHCARE LAB [address] [place] [address] * (ABNORMAL) POCT glucose meter (11/09/2024 4:36 [...] Comment 11/09/2024 4:38 PM EDT [facility]ALTH[facility]ARE LAB Smoke Eater ID Kristian Sosa 11/09/2024 4:38 PM EDT HEALTHCARE LAB Device ID [id number] 11/09/2024 4:38 PM EDT HEALTHCARE LAB Specimen Type POC Capillary 11/09/2024 4:38 PM EDT [facility] LAB Blood Capillary blood specimen / Unknown 11/09/2024 4:36 PM EDT 11/09/2024 4:38 PM EDT Nathaly Nowak MD LAB POINT OF CARE TE ST DOCKED DEVICE UNSOLICITED RESULTS Final Result Performing Organization Address City/[facility] Co de Phone Number [facility] [address] [place] [address] * PICC SINGLE LUMEN (SMARTFORM LINK) (11/09/2024 1:11 PM EDT) Narrative Estefani Barraza RN - 11/09/2024 1:11 PM EDT Estefani Barraza RN 11/09/2024 1:12 PM Insert PICC line Date/Time: 11/09/2024 1:11 PM Performed by: Estefani Barraza RN Authorized by: Nathaly Nowak MD [employer] Protocol: Verbal consent obtained?: Yes Written consent [...] selection rationale: Left pacemaker Catheter Lot #: [id number] Catheter assistant strength coach: RABT Catheter placed: Single lumen Catheter size: 4 Fr Catheter trimmed length: 42 Catheter threaded length: 42 Vein placed in: SVC Catheter cm indwellin Catheter cm outside: 0 Placement confirmed by: [employer] 3CG technology Pre-procedure: Landmarks identified Ultrasound guidance: [...] (11/09/2024 11:50 AM EDT) Pathologist [facility] POCT Glucose 127(H) 74 - 99 mg/dL 11/09/2024 11:51 AM EDT [facility] Comment:Accuracy of a glucos e result [...] testing. Comment 11/09/2024 11:51 AM EDT [facility] [employer] Smoke Eater ID Kristian Sosa 11/09/2024 11:51 AM EDT HEALTHCARE LAB Device ID [id number] 11/09/2024 11:51 AM EDT HEALTHCARE LAB Specimen Type POC Capillary 11/09/2024 11:51 AM EDT HEALTHCARE LAB Blood Capillary blood specimen / Unknown 11/09/2024 11:50 AM EDT 11/09/2024 11:51 AM EDT Nathaly Nowak MD LAB POINT OF CARE TE ST DOCKED DEVICE UNSOLICITED RESULTS Final Result Performing Organization Address City/[facility]/ZIP Co de Phone Number HEALTHCARE LAB [address] [place] [address] * (ABNORMAL) POCT glucose meter (11/09/2024 8:14 AM EDT) [facility] POCT Glucose 153(H) 74 - 99 mg/dL [...] Comment 11/09/2024 8:15 AM EDT HEALTHCARE LAB Smoke Eater ID Kristian Sosa 11/09/2024 8:15 AM EDT HEALTHCARE LAB Device ID [id number] 11/09/2024 8:15 AM EDT HEALTHCARE LAB Specimen Type POC Capillary 11/09/2024 8:15 AM EDT [facility]ALTH[facility]ARE LAB Blood Capillary blood specimen / Unknown 11/09/2024 8:14 AM EDT 11/09/2024 8:15 AM EDT Nathaly Nowak MD LAB POINT OF CARE TE ST DOCKED DEVICE UNSOLICITED RESULTS Final Result Performing Organization Address City/[facility]/ZIP Co de Phone Number HEALTHCARE LAB [address] [place] [address] * (ABNORMAL) CBC and Differential (11/09/2024 4:15 [...] Resu lt [facility] [address] [place] [address] * (ABNORMAL) Comprehensive Metabolic Panel, Plasma (11/09/2024 [...] ORDERABLES Final Resu lt Performing Organization Address City/[facility]/ZIP Co de Phone Number [facility] [address] [place] [address] * (ABNORMAL) POCT glucose meter (11/09/2024 3:30 [...] Comment 11/09/2024 3:31 AM EDT HEALTHCARE LAB Smoke Eater ID Maximiliano Hansen II 11/09/2024 3:31 AM EDT HEALTHCARE LAB Device ID [id number] 11/09/2024 3:31 AM EDT [facility] Specimen Type POC Capillary 11/09/2024 3:31 AM EDT [facility] Blood Capillary blood specimen / Unknown 11/09/2024 3:30 AM EDT 11/09/2024 3:31 AM EDT Nathaly Nowak MD LAB POINT OF CARE TE ST DOCKED DEVICE UNSOLICITED RESULTS Final Result Performing Organization Address City/[facility]/ZIP Co de Phone Number HEALTHCARE LAB [address] [place] [address] * (ABNORMAL) POCT glucose meter (11/08/2024 7:21 PM EDT) Pathologist [facility] POCT Glucose 292(H) 74 - 99 [...] Comment 11/08/2024 7:22 PM EDT HEALTHCARE LAB Smoke Eater ID Maximiliano Hansen II 11/08/2024 7:22 PM EDT HEALTHCARE LAB Device ID [id number] 11/08/2024 7:22 PM EDT HEALTHCARE LAB Specimen Type POC Capillary 11/08/2024 7:22 PM EDT HEALTH[facility]ARE LAB Blood Capillary blood specimen / Unknown 11/08/2024 7:21 PM EDT 11/08/2024 7:22 PM EDT Nathaly Nowak MD LAB POINT OF CARE TE ST DOCKED DEVICE UNSOLICITED RESULTS Final Result Performing Organization Address City/State/[facility] Co de Phone Number HEALTHCARE LAB [address] [place] [address] * (ABNORMAL) POCT glucose meter (11/08/2024 5:12 PM EDT) [facility] POCT Glucose 178(H) 74 - 99 mg/dL [...] Comment 11/08/2024 5:14 PM EDT HEALTHCARE LAB Smoke Eater ID Estefani Sheth 11/08/2024 5:14 PM EDT HEALTHCARE LAB Device ID [id number] 11/08/2024 5:14 PM EDT HEALTHCARE LAB Specimen Type POC Capillary 11/08/2024 5:14 PM EDT HEALTH[facility]ARE LAB Blood Capillary blood specimen / Unknown 11/08/2024 5:12 PM EDT 11/08/2024 5:14 PM EDT us Nathaly Nowak MD LAB POINT OF CARE TE ST DOCKED DEVICE UNSOLICITED RESULTS Final Result Performing Organization Address City/[facility] Co de Phone Number HEALTHCARE LAB [address] [place] [address] * (ABNORMAL) POCT glucose meter (11/08/2024 12:03 PM EDT) [facility] POCT Glucose 191(H) 74 - 99 mg/dL [...] Comment 11/08/2024 12:05 PM EDT HEALTHCARE LAB Smoke Eater ID Estefani Sheth 11/08/2024 12:05 PM EDT HEALTHCARE LAB Device ID [id number] 11/08/2024 12:05 PM EDT [facility] Specimen Type POC Capillary 11/08/2024 12:05 PM EDT [facility] Blood Capillary blood specimen / Unknown 11/08/2024 12:03 PM EDT 11/08/2024 12:05 PM EDT Nathaly Nowak MD LAB POINT OF CARE TE ST DOCKED DEVICE UNSOLICITED RESULTS Final Result Performing Organization Address [facility] Co de Phone Number HEALTHCARE LAB [address] [place] [address] * Vancomycin, Peak, Plasma Please draw ~2 hours after 11/08 0600 dose of vancomycin finishes infusing.Consider obtaining level via peripheral stick. If peripheral stick is not feasible, please ensure that line is flushed well prior to drawing level.... (11/08/2024 9:24 AM EDT) [facility] Vancomycin, Peak, Plasma 29.1 20.0 - 40.0 [...] ORDERABLES Final Resu lt Performing Organization Address [facility]/ZIP Co de Phone Number [facility] [address] [place] [address] * (ABNORMAL) POCT glucose meter (11/08/2024 8:00 AM EDT) [facility] POCT Glucose 150(H) 74 - 99 mg/dL [...] Comment 11/08/2024 8:01 AM EDT HEALTHCARE LAB Smoke Eater ID Estefani Sheth 11/08/2024 8:01 AM EDT HEALTHCARE LAB Device ID [id number] 11/08/2024 8:01 AM EDT HEALTHCARE LAB Specimen Type POC Capillary 11/08/2024 8:01 AM EDT [facility] Blood Capillary blood specimen / Unknown 11/08/2024 8:00 AM EDT 11/08/2024 8:01 AM EDT Nathaly Nowak MD LAB POINT OF CARE TE ST DOCKED DEVICE UNSOLICITED RESULTS Final Result Performing Organization Address City/[facility]/ZIP Co de Phone Number HEALTHCARE LAB [address] [place] [address] * (ABNORMAL) CBC and Differential (11/08/2024 4:39 AM EDT) [facility] WBC Count 9.18 3.70 - 10.30 10*3/uL [...] on absolute values, rather than percentages. us Natahly Nowak MD LAB BLOOD ORDERABLES Final Resu lt [facility] [address] [place] [address] * (ABNORMAL) Comprehensive Metabolic Panel, Plasma (11/08/2024 [...] ORDERABLES Final Resu lt Performing Organization Address [facility] Co de Phone Number [facility] [address] [place] [address] * Vancomycin, Trough, Plasma Please draw ~30 minutes prior to dose due at 0600 on 11/08. Please do NOThold dose awaiting level to return. Consider obtaining level via peripheral stick. If peripheral stick is not feasible, please ensure that line is... (11/08/2024 4:39 AM EDT) [facility] Vancomycin, Trough, Plasma 18.7 10.0 - 20.0 ug/mL 11/08/2024 5:22 AM EDT [facility] Blood Venous blood specimen / Unknown Venipuncture / Unknown 11/08/2024 4:39 AM EDT 11/08/2024 4:43 AM EDT Narrative [facility] - 11/08/2024 5:22 AM EDT Therapeutic Trough level: 10-20ug/mL Supra-therapeutic Trough level: >20 ug/mL Nathaly Nowak MD LAB BLOOD ORDERABLES Final Resu Performing Organization Address [facility] de Phone Number [facility] [address] [place] [address] * (ABNORMAL) POCT glucose meter (11/07/2024 7:26 PM EDT) [facility] POCT Glucose 172(H) 74 - 99 mg/dL [...] 11/07/2024 7:28 PM EDT [facility] Smoke Eater ID Maximiliano Hansen II 11/07/2024 7:28 PM EDT [facility] Device ID [id number] 11/07/2024 7:28 PM EDT [facility] Specimen Type POC Capillary 11/07/2024 7:28 PM EDT [facility]ALTH[facility]ARE LAB Blood Capillary blood specimen / Unknown 11/07/2024 7:26 PM EDT 11/07/2024 7:28 PM EDT Nathaly Nowak MD LAB POINT OF CARE TE ST DOCKED DEVICE UNSOLICITED RESULTS Final Result Performing Organization Address City/[facility]/ZIP Co de Phone Number [facility] [address] [place] [address] * (ABNORMAL) POCT glucose meter (11/07/2024 5:51 [...] 11/07/2024 5:52 PM EDT [facility] Smoke Eater ID Brigitte Castellon 11/07/2024 5:52 PM EDT [facility] Device ID [id number] 11/07/2024 5:52 PM EDT HEALTHCARE LAB Specimen Type POC Capillary 11/07/2024 5:52 PM EDT [facility] Blood Capillary blood specimen / Unknown 11/07/2024 5:51 PM EDT 11/07/2024 5:52 PM EDT Nathaly Nowak MD LAB POINT OF CARE TE ST DOCKED DEVICE UNSOLICITED RESULTS Final Result [facility] [address] [place] [address] * (ABNORMAL) POCT glucose meter (11/07/2024 4:47 [...] Comment 11/07/2024 4:48 PM EDT [facility]ALTHCARE LAB Smoke Eater ID Estefani Sheth 11/07/2024 4:48 PM EDT HEALTHCARE LAB Device ID [id number] 11/07/2024 4:48 PM EDT HEALTHCARE LAB Specimen Type POC Capillary 11/07/2024 4:48 PM EDT [facility] Blood Capillary blood specimen / Unknown 11/07/2024 4:47 PM EDT 11/07/2024 4:48 PM EDT us Nathaly Nowak MD LAB POINT OF CARE TE ST DOCKED DEVICE UNSOLICITED RESULTS Final Result Performing Organization Address City/State/[facility] Co de Phone Number HEALTHCARE LAB [address] [place] [address] * (ABNORMAL) POCT glucose meter (11/07/2024 12:22 [...] Comment 11/07/2024 12:24 PM EDT [facility]ALTH[facility]ARE LAB Smoke Eater ID Esteafni Sheth 11/07/2024 12:24 PM EDT HEALTHCARE LAB Device ID [id number] 11/07/2024 12:24 PM EDT HEALTHCARE LAB Specimen Type POC Capillary 11/07/2024 12:24 PM EDT [facility] Blood Capillary blood specimen / Unknown 11/07/2024 12:22 PM EDT 11/07/2024 12:24 PM EDT us Nathaly M She MD LAB POINT OF CARE TE ST DOCKED DEVICE UNSOLICITED RESULTS Final Result [facility] [address] [place] [address] * (ABNORMAL) CBC and Differential (11/07/2024 11:37 [...] lt [facility] [address] [place] [address] * (ABNORMAL) Comprehensive Metabolic Panel, Plasma (11/07/2024 11:37 AM EDT) [facility] Signature Glucose, Plasma 173(H) 74 - [...] ORDERABLES Final Resu lt Performing Organization Address City/[facility]/ZIP Co de Phone Number [facility] [address] [place] [address] * Type and Screen (11/07/2024 11:37 AM [...] ORDERABLES F inal Result Performing Organization Address [facility] Co de Phone Number BLOOD BANK [address] [place] [address], * (ABNORMAL) POCT glucose meter (11/07/2024 10:34 AM EDT) POCT Glucose 199(H) 74 - 99 mg/dL 11/07/2024 10:36 AM EDT [facility] Comment:Accuracy of a glucos e [...] Comment 11/07/2024 10:36 AM EDT HEALTHCARE LAB Smoke Eater ID Joy Iraheta 11/07/2024 10:36 AM EDT HEALTHCARE LAB Device ID [id number] 11/07/2024 10:36 AM EDT HEALTHCARE LAB Specimen Type POC Capillary 11/07/2024 10:36 AM EDT [facility]ALTH[facility]ARE LAB Blood Capillary blood specimen / Unknown 11/07/2024 10:34 AM EDT 11/07/2024 10:36 AM EDT Nathaly Nowak MD LAB POINT OF CARE TE ST DOCKED DEVICE UNSOLICITED RESULTS Final Result Performing Organization Address City/[facility] Co de Phone Number [facility] [address] [place] [address] * (ABNORMAL) POCT glucose meter (11/07/2024 9:34 [...] Comment 11/07/2024 9:36 AM EDT HEALTHCARE LAB Smoke Eater ID Brigitte Castellon 11/07/2024 9:36 AM EDT HEALTHCARE LAB Device ID [id number] 11/07/2024 9:36 AM EDT HEALTHCARE LAB Specimen Type POC Capillary 11/07/2024 9:36 AM EDT [facility]ALTH[facility] LAB Blood Capillary blood specimen / Unknown 11/07/2024 9:34 AM EDT 11/07/2024 9:36 AM EDT Nathaly Nowak MD LAB POINT OF CARE TE ST DOCKED DEVICE UNSOLICITED RESULTS Final Result Performing Organization Address City/[facility]/ZIP Co de Phone Number [facility]ARE [facility] [address] [place] [address] * (ABNORMAL) POCT glucose meter (11/07/2024 8:20 [...] Comment 11/07/2024 8:22 AM EDT [facility]ALTH[facility]ARE LAB Smoke Eater ID Estefani Sheth 11/07/2024 8:22 AM EDT HEALTHCARE LAB Device ID [id number] 11/07/2024 8:22 AM EDT [facility]ALTH[facility]ARE LAB Specimen Type POC Capillary 11/07/2024 8:22 AM EDT [facility] Blood Capillary blood specimen / Unknown 11/07/2024 8:20 AM EDT 11/07/2024 8:22 AM EDT us Nathaly Nowak MD LAB POINT OF CARE TE ST DOCKED DEVICE UNSOLICITED RESULTS Final Result Performing Organization Address City/State/[facility] Co de Phone Number HEALTHCARE LAB [address] [place] [address] * (ABNORMAL) POCT glucose meter (11/07/2024 7:21 AM EDT) Pathologist [facility] POCT Glucose 151(H) 74 - 99 [...] 11/07/2024 7:22 AM EDT [facility] Smoke Eater ID Brigitte Castellon 11/07/2024 7:22 AM EDT [facility] Device ID [id number] 11/07/2024 7:22 AM EDT HEALTHCARE LAB Specimen Type POC Capillary 11/07/2024 7:22 AM EDT [facility] Blood Capillary blood specimen / Unknown 11/07/2024 7:21 AM EDT 11/07/2024 7:22 AM EDT Nathaly Nowak MD LAB POINT OF CARE TE ST DOCKED DEVICE UNSOLICITED RESULTS Final Result [facility] [address] [place] [address] * (ABNORMAL) POCT glucose meter (11/07/2024 6:25 [...] for testing. Comment 11/07/2024 6:27 AM EDT [facility] Smoke Eater ID Nelda Gerber 11/08/19 6:27 AM EDT [facility] Device ID [id number] 11/07/2024 6:27 AM EDT [facility] Specimen Type POC Capillary 11/07/2024 6:27 AM EDT [facility] Blood Capillary blood specimen / Unknown 11/07/2024 6:25 AM EDT 11/07/2024 6:27 AM EDT us Nathaly Nowak MD LAB POINT OF CARE TE ST DOCKED DEVICE UNSOLICITED RESULTS Final Result [facility] [address] [place] [address] * (ABNORMAL) POCT glucose meter (11/07/2024 5:03 [...] Comment 11/07/2024 5:08 AM EDT [facility]ALTHCARE LAB Smoke Eater ID Nelda Gerber 11/08/19 5:08 AM EDT HEALTHCARE LAB Device ID [id number] 11/07/2024 5:08 AM EDT HEALTHCARE LAB Specimen Type POC Capillary 11/07/2024 5:08 AM EDT [facility]ALTH[facility]ARE LAB Blood Capillary blood specimen / Unknown 11/07/2024 5:03 AM EDT 11/07/2024 5:08 AM EDT us Nathaly Nowak MD LAB POINT OF CARE TE ST DOCKED DEVICE UNSOLICITED RESULTS Final Result Performing Organization Address City/State/[facility] Co de Phone Number HEALTHCARE LAB [address] [place] [address] * (ABNORMAL) POCT glucose meter (11/07/2024 4:16 [...] Comment 11/07/2024 4:18 AM EDT HEALTHCARE LAB Smoke Eater ID Nelda Gerber 11/08/19 4:18 AM EDT HEALTHCARE LAB Device ID [id number] 11/07/2024 4:18 AM EDT HEALTHCARE LAB Specimen Type POC Capillary 11/07/2024 4:18 AM EDT [facility]ALTH[facility]ARE LAB Blood Capillary blood specimen / Unknown 11/07/2024 4:16 AM EDT 11/07/2024 4:18 AM EDT us Nathaly Nowak MD LAB POINT OF CARE TE ST DOCKED DEVICE UNSOLICITED RESULTS Final Result [facility] [address] [place] [address] * (ABNORMAL) POCT glucose meter (11/07/2024 3:21 AM EDT) POCT Glucose 141(H) 74 - 99 mg/dL 11/07/2024 3:23 AM EDT [facility] Comment:Accuracy [...] for testing. Comment 11/07/2024 3:23 AM EDT [facility] Smoke Eater ID Nelda Gerber 11/08/19 3:23 AM EDT [facility] Device ID [id number] 11/07/2024 3:23 AM EDT [facility] Specimen Type POC Capillary 11/07/2024 3:23 AM EDT [facility] Blood Capillary blood specimen / Unknown 11/07/2024 3:21 AM EDT 11/07/2024 3:23 AM EDT Nathaly Nowak MD LAB POINT OF CARE TE ST DOCKED DEVICE UNSOLICITED RESULTS Final Result Performing Organization Address City/[facility]/ZIP Co de Phone Number [facility] [address] [place] [address] * (ABNORMAL) POCT glucose meter (11/07/2024 2:10 [...] 11/07/2024 2:12 AM EDT [facility] Smoke Eater ID Nelda Gerber 11/08/19 25 2:12 AM EDT [facility]ALTH[facility]ARE LAB Device ID [id number] 11/07/2024 2:12 AM EDT [facility] Specimen Type POC Capillary 11/07/2024 2:12 AM EDT [facility] Blood Capillary blood specimen / Unknown 11/07/2024 2:10 AM EDT 11/07/2024 2:12 AM EDT Nathaly Nowak MD LAB POINT OF CARE TE ST DOCKED DEVICE UNSOLICITED RESULTS Final Result Performing Organization Address City/[facility] Co de Phone Number [facility] [address] [place] [address] * (ABNORMAL) POCT glucose meter (11/07/2024 1:08 [...] Comment 11/07/2024 1:10 AM EDT [facility] Smoke Eater ID Nelda Gerber 11/08/19 1:10 AM EDT [facility]ALTH[facility]ARE LAB Device ID [id number] 11/07/2024 1:10 AM EDT [facility] Specimen Type POC Capillary 11/07/2024 1:10 AM EDT [facility] Blood Capillary blood specimen / Unknown 11/07/2024 1:08 AM EDT 11/07/2024 1:10 AM EDT Nathaly Nowak MD LAB POINT OF CARE TE ST DOCKED DEVICE UNSOLICITED RESULTS Final Result Performing Organization Address City/[facility]/ZIP Co de Phone Number [facility] [address] [place] [address] * (ABNORMAL) POCT glucose meter (11/07/2024 12:10 AM EDT) [facility] POCT Glucose 127(H) 74 - 99 mg/dL [...] Comment 11/07/2024 12:13 AM EDT [facility] Smoke Eater ID Nelda Gerber 11/08/19 12:13 AM EDT HEALTHCARE LAB Device ID [id number] 11/07/2024 12:13 AM EDT [facility]ARE [facility] Specimen Type POC Capillary 11/07/2024 12:13 AM EDT [facility] Blood Capillary blood specimen / Unknown 11/07/2024 12:10 AM EDT 11/07/2024 12:13 AM EDT Nathaly Nowak MD LAB POINT OF CARE TE ST DOCKED DEVICE UNSOLICITED RESULTS Final Result Performing Organization Address City/State/[facility] Co de Phone Number [facility] [address] [place] [address] * (ABNORMAL) POCT glucose meter (11/06/2024 11:14 PM EDT) [facility] POCT Glucose 71(L) 74 - 99 mg/dL 11/06/2024 11:16 PM EDT [facility] Comment:Accuracy of a glucos e result [...] 11/06/2024 11:16 PM EDT [facility] Smoke Eater ID Nelda Gerber 11/07/19 11:16 PM EDT [facility]ALTH[facility]ARE LAB Device ID [id number] 11/06/2024 11:16 PM EDT [facility] LAB Specimen Type POC Capillary 11/06/2024 11:16 PM EDT [facility] Blood Capillary blood specimen / Unknown 11/06/2024 11:14 PM EDT 11/06/2024 11:16 PM EDT Nathaly Nowak MD LAB POINT OF CARE TE ST DOCKED DEVICE UNSOLICITED RESULTS Final Result Performing Organization Address City/[facility]/ZIP Co de Phone Number [facility] [address] [place] [address] * (ABNORMAL) POCT glucose meter (11/06/2024 10:07 [...] for testing. Comment 11/06/2024 10:09 PM EDT [facility] Smoke Eater ID Nelda Gerber 11/07/19 10:09 PM EDT HEALTHCARE LAB Device ID [id number] 11/06/2024 10:09 PM EDT [facility] Specimen Type POC Capillary 11/06/2024 10:09 PM EDT [facility] Blood Capillary blood specimen / Unknown 11/06/2024 10:07 PM EDT 11/06/2024 10:09 PM EDT Nathaly Nowak MD LAB POINT OF CARE TE ST DOCKED DEVICE UNSOLICITED RESULTS Final Result Performing Organization Address City/[facility]/ZIP Co de Phone Number [facility] [address] [place] [address] * (ABNORMAL) POCT glucose meter (11/06/2024 8:22 [...] Comment 11/06/2024 8:25 PM EDT [facility] Smoke Eater ID Nelda Gerber 11/07/19 8:25 PM EDT [facility]ALTHCARE LAB Device ID [id number] 11/06/2024 8:25 PM EDT [facility] Specimen Type POC Capillary 11/06/2024 8:25 PM EDT [facility] Blood Capillary blood specimen / Unknown 11/06/2024 8:22 PM EDT 11/06/2024 8:25 PM EDT Nathaly Nowak MD LAB POINT OF CARE TE ST DOCKED DEVICE UNSOLICITED RESULTS Final Result [facility] [address] [place] [address] * (ABNORMAL) POCT glucose meter (11/06/2024 7:31 PM EDT) [facility] POCT Glucose 359(H) 74 - 99 mg/dL [...] Comment 11/06/2024 7:32 PM EDT [facility] Smoke Eater ID Nelda Gerber 11/07/19 7:32 PM EDT [facility]ALTH[facility] LAB Device ID [id number] 11/06/2024 7:32 PM EDT [facility] Specimen Type POC Capillary 11/06/2024 7:32 PM EDT [facility] Blood Capillary blood specimen / Unknown 11/06/2024 7:31 PM EDT 11/06/2024 7:32 PM EDT Nathaly Nowak MD LAB POINT OF CARE TE ST DOCKED DEVICE UNSOLICITED RESULTS Final Result Performing Organization Address [facility] Co de Phone Number [facility] [address] [place] [address] * (ABNORMAL) POCT glucose meter (11/06/2024 6:15 PM EDT) [facility] POCT Glucose 368(H) 74 - 99 mg/dL [...] Comment 11/06/2024 6:17 PM EDT [facility] Smoke Eater ID Estefani Sheth 11/06/2024 6:17 PM EDT [facility] LAB Device ID [id number] 11/06/2024 6:17 PM EDT [facility] Specimen Type POC Capillary 11/06/2024 6:17 PM EDT [facility] Blood Capillary blood specimen / Unknown 11/06/2024 6:15 PM EDT 11/06/2024 6:17 PM EDT Nathaly Nowak MD LAB POINT OF CARE TE ST DOCKED DEVICE UNSOLICITED RESULTS Final Result Performing Organization Address City/[facility] Co de Phone Number [facility] [address] [place] [address] * (ABNORMAL) POCT glucose meter (11/06/2024 4:57 PM EDT) [facility] POCT Glucose 417(H) 74 - 99 mg/dL [...] 11/06/2024 4:58 PM EDT [facility] Smoke Eater ID Estefani Sheth 11/06/2024 4:58 PM EDT [facility]ALTH[facility]ARE LAB Device ID [id number] 11/06/2024 4:58 PM EDT [facility] Specimen Type POC Capillary 11/06/2024 4:58 PM EDT [facility] Blood Capillary blood specimen / Unknown 11/06/2024 4:57 PM EDT 11/06/2024 4:58 PM EDT Nathaly Nowak MD LAB POINT OF CARE TE ST DOCKED DEVICE UNSOLICITED RESULTS Final Result Performing Organization Address City/[facility]/ZIP Co de Phone Number [facility] [address] [place] [address] * (ABNORMAL) POCT glucose meter (11/06/2024 2:08 PM EDT) [facility] POCT Glucose 253(H) 74 - 99 mg/dL [...] for testing. Comment 11/06/2024 2:09 PM EDT [facility] Smoke Eater ID Brigitte Castellon 11/06/2024 2:09 PM EDT HEALTHCARE LAB Device ID [id number] 11/06/2024 2:09 PM EDT [facility] Specimen Type POC Capillary 11/06/2024 2:09 PM EDT [facility] Blood Capillary blood specimen / Unknown 11/06/2024 2:08 PM EDT 11/06/2024 2:09 PM EDT us Nathaly Nowak MD LAB POINT OF CARE TE ST DOCKED DEVICE UNSOLICITED RESULTS Final Result Performing Organization Address City/[facility]/ZIP Co de Phone Number [facility] [address] [place] [address] * (ABNORMAL) POCT glucose meter (11/06/2024 12:27 PM EDT) [facility] POCT Glucose 228(H) 74 - 99 mg/dL [...] Comment 11/06/2024 12:28 PM EDT [facility] Smoke Eater ID Jacinta Galloway 11/06/2024 12:28 PM EDT [facility]ALTH[facility] LAB Device ID [id number] 11/06/2024 12:28 PM EDT [facility] Specimen Type POC Capillary 11/06/2024 12:28 PM EDT [facility] Blood Capillary blood specimen / Unknown 11/06/2024 12:27 PM EDT 11/06/2024 12:28 PM EDT Nathaly Nowak MD LAB POINT OF CARE TE ST DOCKED DEVICE UNSOLICITED RESULTS Final Result [facility] [address] [place] [address] * (ABNORMAL) Tissue Culture and Gram Stain (11/06/2024 11:34 AM EDT) [facility] Culture Moderate Growth 7:35 AM EDT [facility] Culture 2+ Enterobacter cloacae complex(A) ANGÉLICA 11/15/2024 7:35 AM EDT [facility] Comment: This isolate has been identified using the FDA Approved [employer] System The organism value for this result has been updated. These results have been appended to the previously preliminary verified report. Edited result: Previously reported as Gram Negative Jesus on 11/07/2024 at 1434 EDT. Culture 2+ Streptococcus mitis/oralis group(A) ANGÉLICA 11/15/2024 7:35 AM EDT [facility] Comment: This isolate has been identified using the FDA Approved [employer] [place] System The organism value for this result has been updated. These results have been appended to the previously preliminary verified report. Culture 2+ Pasteurella stomatis(A) ANGÉLICA 11/15/2024 7:35 AM EDT [facility] Comment: This result was determined by MALDI tof mass spectrometry using the [employer] database and is for research use [...] [T81.49XA] Narrative [facility] - 11/15/2024 7:35 AM [...] GENERAL ATIYA FRITZ Edited Result - Final [facility] [address] [place] [address] * (ABNORMAL) Anaerobic Culture (11/06/2024 11:34 AM EDT) Culture No anaerobes isolated 11/14/2024 1:25 PM EDT [facility] Culture Staphylococcus pseudintermedius( A) 11/14/2024 1:25 PM EDT [facility] Comment: This result was determined by MALDI tof mass spectrometry using the [employer] database and is for research use [...] Nowak MD LAB MICROBIOLOGY - GENERAL ORDAna [facility] Edited Result - Final [facility] [address] [place] [address] * (ABNORMAL) Routine Culture and Gram Stain (11/06/2024 11:29 AM EDT) Culture Moderate Growth 5:29 PM EDT [facility] Culture Enterobacter cloacae complex(A) 11/08/2024 5:29 PM EDT [facility] Comment: This isolate has been identified using the FDA Approved [employer] System For susceptibility results refer to: - [id number] The organism value for this result has [...] ORDE RABLES Final Result Performing Organization Address [facility]/ZIP Co de Phone Number [facility] [address] [place] [address] * Fungal Culture, Routine (11/06/2024 11:29 AM EDT) Culture No Fungal Growth at 1 Week 11/13/2024 8:29 AM EDT [facility] Swab Topography unknown / Unknown 11/06/2024 11:29 AM EDT 11/06/2024 12:19 PM EDT Comment:Pre-op diagnosis: Surgical wound infection [T81.49XA] Nathaly Nowak MD LAB MICROBIOLOGY - GENERAL ORDE RABLES Final Result Performing Organization Address City/[facility] Co de Phone Number [facility] [address] [place] [address] * (ABNORMAL) Anaerobic Culture (11/06/2024 11:29 AM EDT) Culture No anaerobes isolated 11/14/2024 1:25 PM EDT [facility] Culture Streptococcus mitis/oralis group(A) 11/14/2024 1:25 PM EDT [facility] Comment: This result was determined by MALDI tof mass spectrometry using the [employer] database and is for research use [...] has been identified using the FDA Approved [employer] System This is an appended report. [...] GENERAL ORDAna FRITZ Edited Result - Final [facility] [address] [place] [address] * Routine Culture and Gram Stain (11/06/2024 [...] MICROBIOLOGY - GENERAL ORDE RABONEIDA Final Result [facility] [address] [place] [address] * Fungal Culture, Routine (11/06/2024 11:28 AM EDT) Culture No Fungal Growth at 1 Week 11/13/2024 8:29 AM EDT [facility] Swab Topography unknown / Unknown 11/06/2024 11:28 AM EDT 11/06/2024 12:20 PM EDT Comment:Pre-op diagnosis: Surgical wound infection [T81.49XA] us Nathaly Nowak MD LAB MICROBIOLOGY - GENERAL ORDE LAM Final Result Performing Organization Address City/[facility]/ZIP Co de Phone Number [facility] [address] [place] [address] * Anaerobic Culture (11/06/2024 11:28 AM EDT) Culture No growth at day 4 11/13/2024 12:53 PM EDT [facility] Swab Topography unknown / Unknown 11/06/2024 11:28 AM EDT 11/06/2024 12:20 PM EDT Comment:Pre-op diagnosis: Surgical wound infection [T81.49XA] us Nathaly Nowak MD LAB MICROBIOLOGY - GENERAL ORDE RABONEIDA Final Result Performing Organization Address City/[facility]/ZIP Co de Phone Number [facility] [address] [place] [address] * (ABNORMAL) POCT glucose meter (11/06/2024 10:16 AM EDT) Pathologist [facility] POCT Glucose 194(H) 74 - 99 [...] Comment 11/06/2024 10:18 AM EDT [facility] Smoke Eater ID Lacy Griffin 11/07/19 10:18 AM EDT [facility] Device ID [id number] 11/06/2024 10:18 AM EDT [facility] Specimen Type POC Capillary 11/06/2024 10:18 AM EDT [facility] Blood Capillary blood specimen / Unknown 11/06/2024 10:16 AM EDT 11/06/2024 10:18 AM EDT Nathaly Nowak MD LAB POINT OF CARE TE ST DOCKED DEVICE UNSOLICITED RESULTS Final Result Performing Organization Address City/State/[facility] Co de Phone Number [facility]ARE [facility] [address] [place], [place] [address] * (ABNORMAL) POCT glucose meter (11/06/2024 5:58 AM EDT) Pathologist [facility] POCT Glucose 182(H) 74 - 99 [...] Comment 11/06/2024 6:01 AM EDT [facility] Smoke Eater ID Raj Laird 11/07/19 6:01 AM EDT HEALTH[facility]ARE LAB Device ID [id number] 11/06/2024 6:01 AM EDT [facility] LAB Specimen Type POC Capillary 11/06/2024 6:01 AM EDT [facility] Blood Capillary blood specimen / Unknown 11/06/2024 5:58 AM EDT 11/06/2024 6:01 AM EDT aNthaly Nowak MD LAB POINT OF CARE TE ST DOCKED DEVICE UNSOLICITED RESULTS Final Result Performing Organization Address City/[facility]/ZIP Co de Phone Number [facility] [address] [place] [address] * (ABNORMAL) POCT glucose meter (11/06/2024 5:36 AM EDT) POCT Glucose 202(H) 74 - 99 mg/dL 11/06/2024 5:38 AM EDT [facility] Comment:Accuracy of a glucos e [...] for testing. Comment 11/06/2024 5:38 AM EDT [facility] Smoke Eater ID Shahid Sanches 11/06/2024 5:38 AM EDT [facility] Device ID [id number] 11/06/2024 5:38 AM EDT [facility] Specimen Type POC Capillary 11/06/2024 5:38 AM EDT [facility] Blood Capillary blood specimen / Unknown 11/06/2024 5:36 AM EDT 11/06/2024 5:38 AM EDT us Nathaly Nowak MD LAB POINT OF CARE TE ST DOCKED DEVICE UNSOLICITED RESULTS Final Result Performing Organization Address City/[facility]/ZIP Co de Phone Number [facility] [address] [place] [address] * (ABNORMAL) Hemoglobin A1c (11/06/2024 1:07 AM [...] Adults <6.0% Children and Adolescents <7.5% Source: [place] [employer]. Standards of medical care in diabetes,2017. Diabetes Care.2017:40 (suppl 1):S1-S135. Result [facility] Nathaly Nowak MD LAB BLOOD ORDERABLES Final Resu lt Performing Organization Address City/[facility]/ZIP Co de Phone Number [facility] [address] [place] [address] * Blood Culture (Aerobic/Anaerobet Set) (11/06/2024 1:07 AM EDT) Culture No growth at day 5 11/11/2024 2:49 AM EDT [facility] Blood Structure of right hand / Unknown Venipuncture / Unknown 11/06/2024 1:07 AM EDT 11/06/2024 2:36 AM EDT Nathaly Nowak MD LAB MICROBIOLOGY - GENERAL ORDE RABLES Final Result Performing Organization Address City/[facility]/ZIP Co de Phone Number [facility] [address] [place] [address] * Blood Culture (Aerobic/Anaerobet Set) (11/06/2024 1:07 AM EDT) Culture No growth at day 5 11/11/2024 3:01 AM EDT [facility] Blood Structure of antecubital vein / Unknown Venipuncture / Unknown 11/06/2024 1:07 AM EDT 11/06/2024 2:36 AM EDT Nathaly Nowak MD LAB MICROBIOLOGY - GENERAL ORDE LAM Final Result [facility] [address] [place] [address] * (ABNORMAL) Basic metabolic panel (11/06/2024 1:07 [...] Resu lt [facility] [address] [place] [address] * Phosphorus (11/06/2024 1:07 AM EDT) Phosphorus, Plasma 3.2 2.5 - 4.5 mg/dL 11/06/2024 1:41 AM EDT [facility] Blood Venous blood specimen / Unknown Venipuncture / Unknown 11/06/2024 1:07 AM EDT 11/06/2024 1:12 AM EDT Nathaly Noawk MD LAB BLOOD ORDERABLES Final Resu lt Performing Organization Address [facility] Co de Phone Number [facility] [address] [place] [address] * Magnesium (11/06/2024 1:07 AM EDT) Magnesium, Plasma 2.2 1.9 - 2.4 mg/dL 11/06/2024 1:41 AM EDT [facility] Blood Venous blood specimen / Unknown Venipuncture / Unknown 11/06/2024 1:07 AM EDT 11/06/2024 1:12 AM EDT Nathaly Nowak MD LAB BLOOD ORDERABLES Final Resu lt Performing Organization Address City/[facility] Co de Phone Number [facility] [address] [place] [address] * (ABNORMAL) CBC (11/06/2024 1:07 AM EDT) [...] ORDERABLES Final Resu lt Performing Organization Address City/[facility]/ZIP Co de Phone Number [facility] [address] [place] [address] * Gold Top (11/06/2024 12:58 AM EDT) Extra Hold for add-ons 11/06/2024 3:21 AM EDT [facility] Comment:Auto resulted. Blood Venous blood specimen / Unknown 11/06/2024 12:58 AM EDT 11/06/2024 1:13 AM EDT us Nathaly Nowak MD LAB BLOOD ORDERABLES Final Resu lt Performing Organization Address City/[facility]/ZIP Co de Phone Number [facility] [address] [place] [address] * Gold Top (11/06/2024 12:58 AM EDT) Extra Hold for add-ons 11/06/2024 3:21 AM EDT [facility] Comment:Auto resulted. Blood Venous blood specimen / Unknown 11/06/2024 12:58 AM EDT 11/06/2024 1:13 AM EDT us Nathaly Nowak MD LAB BLOOD ORDERABLES Final Resu lt [facility] [address] [place] [address] * Light Green Top (11/06/2024 12:58 AM EDT) Extra Hold for add-ons 11/06/2024 3:21 AM EDT [facility] Comment:Auto resulted. Blood Venous blood specimen / Unknown 11/06/2024 12:58 AM EDT 11/06/2024 1:13 AM EDT us Nathaly Nowak MD LAB BLOOD ORDERABLES Final Resu lt Performing Organization Address [facility]/ZIP Co de Phone Number [facility] [address] [place] [address] * Light Blue Top (11/06/2024 12:58 AM EDT) Extra Hold for add-ons 11/06/2024 3:21 AM EDT [facility] Comment:Auto resulted. Blood Venous blood specimen / Unknown 11/06/2024 12:58 AM EDT 11/06/2024 1:13 AM EDT us Nathaly Nowak MD LAB BLOOD ORDERABLES Final Resu lt Performing Organization Address City/[facility]/ZIP Co de Phone Number [facility] [address] [place] [address] * Light Blue Top (11/06/2024 12:58 AM EDT) Extra Hold for add-ons 11/06/2024 3:21 AM EDT [facility] Comment:Auto resulted. Blood Venous blood specimen / Unknown 11/06/2024 12:58 AM EDT 11/06/2024 1:13 AM EDT us Nathaly Nowak MD LAB BLOOD ORDERABLES Final Resu lt [facility] [address] [place] [address] * (ABNORMAL) POCT glucose meter (11/06/2024 12:45 [...] Comment 11/06/2024 12:48 AM EDT [facility] Smoke Eater ID Raj Laird 11/07/19 25 12:48 AM EDT [facility] LAB Device ID [id number] 11/06/2024 12:48 AM EDT [facility] LAB Specimen Type POC Capillary 11/06/2024 12:48 AM EDT [facility] Blood Capillary blood specimen / Unknown 11/06/2024 12:45 AM EDT 11/06/2024 12:48 AM EDT us Nathaly Nowak MD LAB POINT OF CARE TE ST DOCKED DEVICE UNSOLICITED RESULTS Final Result Performing Organization Address City/[facility]/ZIP Co de Phone Number [facility] [address] [place] [address] documented in this encounter Visit Diagnoses Diagnosis [...] Provider: Devora Bo)[phone] (Given - Provider: Jonathan Vael RN) [phone] (Given - Provider: Yazmin Bhatt [...] Jonathan Vale RN)[phone] (Given - Provider: Devora oB) [phone] (Given - Provider: Jonathan Vale RN)[phone] [...] documented as of this encounter Care Teams Glue Maker Bone Relationship Specialty Start Date End Date Asad Victor MD [address] [place] [address] PCP - General 10/07/22 documented as of this encounter
--- OUTSIDE RECORDS SUMMARY | 2024-11-06 10:47 | XMS_ITS | Encounter Summary ---
Author Organization Healthcare Address [address] [place] [address] Care Team Providers Care Jewelsmith Name Role Phone Asad Victor MD Primary Care Provider + [phone] Reason for Visit * Auth/Cert (Routine) Specialty Diagnoses / Procedures Referred By Contac t Referred To Contact Diagnoses Wound infection Post-op Vasc Sx wounds - sx on 10/17 at Nathaly Nowak MD [address] [facility] [address] [place] [address] Phone: tel: fax: [facility] A Emergency Department [address] [place] [address] Phone: tel: Referral ID Status Reason Start Date Expiration Date Visits Re quested Visits Authorized [id number] 1 1 Encounter Details Date Type Department Care Team (Late st Contact Info) Description 11/06/2024 10:47 AM EDT Anesthesia Event [facility] OPERATING ROOM [address] [place] [address] Bill Sue MD [address] [place] [address] Sabrina Mckeon PA [address] [facility] [address] [place] [address] Anesthesia Record Procedure Summary Procedure [...] time in the past 12 m [facility], were you homeless or living in a [...] first t dino in the morning (EYE-CLIENT PORTFOLIO MANAGER) to steady your nerves or to [...] and Staff Patient location during procedure: OR TOE LINING CLOSER: Asad Lechuga CRNA, DNP Performed: TOE LINING CLOSER Patient Condition Indications for airway management: anesthesia [...] placement (Left) Location: [facility] OR 16 / [place] OR Surgeons: Nathaly Nowak MD [facility] [...] Abnormal Ventricular Rate 85 Atrial Rate 85 [place] Interval 146 QRSD Interval 128 QT Interval 390 QTC Interval 464 P [place] 52 R [place] 263 T Wave [place] 57 Diagnosis Atrial-sensed ventricular-paced rhythm Diagnosis Biventricular [...] is no recent study available for direct iqyf-av-podd comparison. [facility]: Pre-operative CIED Report Assessment and Sara- Procedural Reommendations: Name: Mono Bobby Date: 10/17/2024 : 1960 Age: 64 y.o. Patient has a Salesforce Consultant: Berger LICENSED NURSING ASSISTANT-PM Remaining battery longevity adequate. Lead integrity [...] RVR s/p CABG), CAD (CAD s/p multiple NH's and 3V CABG02/2019, 2 stents prior to CABG), carotid artery disease (carotid artery disease s/p R CEA 2016), dysrhythmias (3rd degree AV block LICENSED NURSING ASSISTANT-P placed 08/2023 for Wenkeback with 11 sec pause), hyperlipidemia, pacemaker and PVD. Does not have angina, CHF, murmur, orthopnea, syncope or valvular heart disease. hypertension: Cardio additional comments: Follows with OSH Card last seen 09/25/24 ([place]) . Respiratory: home oxygen (2L). no asthma: [...] ENDARTERECTOMY N/A 2017 Endarterectomy Carotid Artery from [facility] CORONARY ANGIOPLASTY Left Coronary Angiography With Concomitant Left Heart Catheterization from [facility] CORONARY ARTERY BYPASS GRAFT N/A 2018 3V ELBOW SURGERY Right ENDARTERECTOMY Left 10/17/2024 common/SFA/Profunda thromboendarterectomy, EIA/ELECTRONIC GLUING MACHINE OPERATOR stent HERNIA REPAIR KNEE ARTHROSCOPY Left VASCULAR SURGERY Left 09/21/2024 ELECTRONIC GLUING MACHINE OPERATOR pseudoaneurym injection [5] Social History [...] Info) Description 11/26/2024 2:00 PM EDT Appointment [facility]ascular Lab [address] [place] [address] 11/26/2024 2:30 PM EDT Appointment [facility] [address] [place] [address] 11/26/2024 3:20 PM EDT Office Visit [facility] [address] [place] [address] Elisabet Schuster PA [address] [facility] [address] [place] [address] 11/29/2024 2:30 PM EDT Office Visit [place] [address] [place] [address] Oscar Appiah MD [address] [facility] [address] [place] [address] documented as of this encounter Goals Goal Patient Goal Type Associated Problems Recent Progress Patient-Stated? Author Autogenera louise Goal Care Plan Autogenerated Problem No Ekta Arnett documented as of this encounter Procedures Procedure Name Priority Date/Time Associated Diagnosis Comments PB ANESTHESIA PLACEHOLDER Routine 11/06/2024 10:58 AM EDT AZ AN ELECTIVE ENDOTRACHEAL AIRWAY Routine 11/06/2024 10:58 AM EDT documented in this encounter Results * AZ AN ELECTIVE ENDOTRACHEAL AIRWAY, PB ANESTHESIA PLACEHOLDER (11/06/2024 10:58 AM EDT) Narrative Asad Lechuga CRNA, DNP - 11/06/2024 10:58 AM EDT Asad Lechuga CRNA, DNP 11/06/2024 11:05 AM Airway Date/Time: 11/06/2024 10:58 AM Reason: elective Airway not difficult General Information and Staff Patient location during procedure: OR TOE LINING CLOSER: Asad Lechuga CRNA, DNP Performed: ISH Patient [...] documented as of this encounter Care Teams Jewelsmith Relationship Specialty Start Date End Date Asad Victor MD [address] [place] [address] PCP - General 10/07/22 documented as of this encounter
--- OUTSIDE RECORDS SUMMARY | 2024-11-16 08:19 | XMS_ITS | Encounter Summary ---
Author Organization Healthcare Address [address] [place] [address] Care Team Providers Care Public Health Technologist Name Role Phone Asad Victor MD Primary Care Provider + [phone] Encounter Details Date Type Department Care Team (Late st Contact Info) Description 09/21/2024 Orders Only External Location [address] [place] [address] Provider, External Social History Tobacco Use Types [...] drink first t dino in the morning (EYE-DISC PAD KNOCKOUT WORKER) to steady your nerves or to [...] Info) Description 11/26/2024 2:00 PM EDT Appointment [facility]ascular Lab [address] [facility] 5th Floor [address] [place] [address] 11/26/2024 2:30 PM EDT Appointment [facility] Lab [address] [facility] 5th Floor [address] [place] [address] 11/26/2024 3:20 PM EDT Office Visit [facility] [address] [facility] 5th Floor [address] [place] [address] Elisabet Schuster PA [address] [place] [address] 11/29/2024 2:30 PM EDT Office Visit [address] [address] Oscar Appiah MD [address] [place] [address] [address] [place] [address] documented as of this encounter [...] documented as of this encounter Care Teams Public Health Technologist Relationship Specialty Start Date End Date Asad Victor MD [address] [place] [address] PCP - General 10/07/22 documented as of this encounter
--- OUTSIDE RECORDS SUMMARY | 2024-11-16 08:19 | XMS_ITS | Encounter Summary ---
Author Organization [facility] Address [address] [place] [address] Care Team Providers Care Doctor Of Dental Medicine Name Role Phone Asad Victor MD Primary Care Provider + [phone] Encounter Details Date Type Department Care Team [...] drink first t dino in the morning (EYE-HEATING ELEMENT REPAIRER) to steady your nerves or to [...] Info) Description 11/26/2024 2:00 PM EDT [facility]ointment [facility] [address] [facility] 5th Floor [address], [address] [place] [address] 11/26/2024 2:30 PM EDT Appointment [facility] Vascular Lab [address] 5th Floor [address] [place] [address] 11/26/2024 3:20 PM EDT Office Visit [facility] [address] [facility] 5th Floor [address] [place] [address] Elisabet Schuster PA [address] [place] [address] 11/29/2024 2:30 PM EDT Office Visit [facility] [address] [place] [address] Oscar Appiah MD [address] [facility] [address] [place] [address] documented as of this encounter Visit Diagnoses Not on filedocumented in this encounter Additional Health Concerns Assessment Noted Time A Body Mass Index follow-up plan has been documented for the patient 09/22/2024 2:53 PM EDT documented as of this encounter Care Teams Doctor Of Dental Medicine Relationship Specialty Start Date End Date Asad Victor MD [address] [place] [id number] PCP - General 10/07/22 documented as of this encounter
--- OUTSIDE RECORDS SUMMARY | 2024-11-16 08:19 | XMS_ITS | Encounter Summary ---
Author Organization Healthcare Address [address] [place] [address] Care Team Providers Care Pickling Solution Maker Name Role Phone Asad Victor MD Primary Care Provider + [phone] Encounter Details Date Type Department Care Team (Late st Contact Info) Description 09/20/2024 Orders Only External Location [address] [place] [address] Timothy Marques PA [address] [place] [id number] Social History Tobacco Use Types Packs/Day Years [...] drink first t dino in the morning (EYE-SLING OPERATOR) to steady your nerves or to [...] Info) Description 11/26/2024 2:00 PM EDT Appointment [facility] Lab [address] [facility] 5th Floor [address] [place] [address] 11/26/2024 2:30 PM EDT Appointment [facility] Lab [address] [facility] 5th Floor [address] [place] [address] 11/26/2024 3:20 PM EDT Office Visit [facility] [address] [facility] 5th Floor [address] [place] [address] Elisabet Schuster, GLENDA [address] [facility] [address] [place] [address] 11/29/2024 2:30 PM EDT Office Visit [facility] [address] [place] [address] Oscar Appiah MD [address] [facility] [address] [place] [address] documented as of this encounter Procedures Procedure Name Priority Date/Time Associated Diagnosis Comments CT OUTSIDE IMAGES 09/20/2024 3:39 PM EDT documented in this encounter Results * CT OUTSIDE IMAGES (09/20/2024 3:39 PM EDT) Anatomical Region Laterality Modality Computed Tomogra phy 09/20/2024 3:39 PM EDT Timothy ODSHI IMG CT PROCEDURES Final Result documented in this encounter Visit Diagnoses Not on filedocumented in this encounter Additional Health Concerns Assessment Noted Time A Body Mass Index follow-up plan has been documented for the patient 09/22/2024 2:53 PM EDT documented as of this encounter Care Teams Pickling Solution Maker Relationship Specialty Start Date End Date Asad Victor MD [address] [place] [address] PCP - General 10/07/22 documented as of this encounter
--- OUTSIDE RECORDS SUMMARY | 2024-11-16 08:20 | XMS_ITS | Encounter Summary ---
Author Organization Healthcare Address [address] [place] [address] Care Team Providers Care Bladder Tier Name Role Phone Asad Victor MD Primary Care Provider + [phone] Encounter Details Date Type Department Care Team (Late st Contact Info) Description 09/20/2024 Orders Only External Location [address] [place] [address] Timothy Marques PA [address] [place] [id number] Social History Tobacco Use Types Packs/Day Years [...] drink first t dino in the morning (EYE-ACCOUNTS RECEIVABLE PROCESSOR) to steady your nerves or to get [...] Melecio Vega, CHRISTIAN 2. Non-Specific Active Suici marclele Thoughts (Past 1 Month) No 09/22/2024 8:10 AM EDT Apollo Vega RN 6. Suicidal Behavior (Lifetime) No 8:10 AM EDT Melecio Vega, CHRISTIAN documented as of this encounter Plan of Treatment Upcoming Encounters Date Type Department Care Team (Late st Contact Info) Description 11/26/2024 2:00 PM EDT Appointment [facility] Vascular Lab [address] [place] [address] 11/26/2024 2:30 PM EDT Appointment [facility] Lab [address] [facility] 5th Floor [address] [place] [address] 11/26/2024 3:20 PM EDT Office Visit [facility] [address] [facility] 5th Floor [address] [place] [address] Elisabet Schuster, GLENDA [address] [facility] [address] [place] [address] 11/29/2024 2:30 PM EDT Office Visit [facility] [address] [place] [address] Oscar Appiah MD [address] [facility] [place] [address] [place] [address] documented as of this encounter Procedures Procedure [...] documented as of this encounter Care Teams Bladder Tier Relationship Specialty Start Date End Date Asad Victor MD [address] [place] [address] PCP - General 10/07/22 documented as of this encounter
--- OUTSIDE RECORDS SUMMARY | 2024-11-16 08:20 | XMS_ITS | Encounter Summary ---
Author Organization Healthcare Address [address] [place] [address] Care Team Providers Care Metalsmith Name Role Phone Asad Victor MD Primary Care Provider + [phone] Encounter Details Date Type Department Care Team [...] drink first t dino in the morning (EYE-RESPITE WORKER) to steady your nerves or to [...] [facility] Lab [address] [facility] 5th Floor [address] [place] [address] 11/26/2024 2:30 PM EDT Appointment [facility] Lab [address] [facility] 5th Floor [address] [place] [address] 11/26/2024 3:20 PM EDT Office Visit [facility] [address] 5th [address] [place] [address] Elisabet Schuster PA [address] [place] [address] 11/29/2024 2:30 PM EDT Office Visit [place] [address] [place] [address] [place] [address] [place] [address] [address] [place] [address] documented as of this encounter Visit Diagnoses Not on filedocumented in this encounter Additional Health Concerns Assessment Noted Time A Body Mass Index follow-up plan has been documented for the patient 09/22/2024 2:53 PM EDT documented as of this encounter Care Teams Metalsmith Relationship Specialty Start Date End Date Asad Victor MD [address] [place] [address] PCP - General 10/07/22 documented as of this encounter
--- OUTSIDE RECORDS SUMMARY | 2024-11-16 08:23 | XMS_ITS | Encounter Summary ---
Author Organization [facility] Address [address] [place] [address] Care Team Providers Care Fire Engineer Name Role Phone Asad Victor MD Primary Care Provider + [phone] Encounter Details Date Type Department Care Team [...] drink first t dino in the morning (EYE-RECRUITING CONSULTANT) to steady your nerves or to [...] Info) Description 11/26/2024 2:00 PM EDT Appointment [facility] Lab [address] 5th Floor [address] [place] [address] 11/26/2024 2:30 PM EDT Appointment [facility] Lab [address] 5th Floor [address] [place] [address] 11/26/2024 3:20 PM EDT Office Visit [facility] [address] 5th Floor [address] [place] [address] Elisabet Schuster, PA [address] [place] [address] 11/29/2024 2:30 PM EDT Office Visit [facility] [address] [facility] [place] [address] Oscar Appiah MD [address] [facility] [address] [place] [address] documented as [...] documented as of this encounter Care Teams Fire Engineer Relationship Specialty Start Date End Date Asad Victor MD [address] [place] [address] PCP - General 10/07/22 documented as of this encounter
--- OUTSIDE RECORDS SUMMARY | 2024-11-16 08:23 | XMS_ITS | Encounter Summary ---
Author Organization Healthcare Address [address] [place] [id number] Care Team Providers Care Gasoline Attendant Name Role Phone Asad Victor MD Primary Care Provider + [phone] Reason for Visit * Reason Onset Date Comments [facility]CN Clinical Concern/Question 11/15/2024 Encounter Details Date Type Department Care Team (Late st Contact Info) Description 11/15/2024 Telephone [facility] [address] [facility] 5th Floor [address] [place] [address] Nathaly Nowak MD [address] [facility] [address] [place] [address] [facility] Clinical Concern/Question Social History Tobacco Use Types Packs/Day Years [...] any time in the past 12 m [facility], were you homeless or living in a half-way (including now)? No 11/07/2024 CAGE ASSESSMENT Answer [...] drink first t dino in the morning (EYE-FELLER SEAM OPERATOR) to steady your nerves or to [...] encounter Miscellaneous Notes * Telephone Encounter - Inna Ovalle - 11/15/2024 11:17 AM EDT Clinical Concern/Question Reason for Call: Patient is calling he had surgery on 11/05 and thought he would be coming to the clinic for wound care on Monday, Monday and Monday. I don't see any appts out there for him. Pleasecall patient back with info. Thank you Best contact number: [phone] (mobile) Optimal time of day to reach caller: ANYTIME Additional comments/information from caller: None Note: Please do not reply to this message. Follow-up communication and further actions as a result of this message need to be communicated with the patient directly, if the patient is not active onMyChart. If the patient is active on MyChart, they will receive notification of the communication/outcome via [employer]. documented in this encounter Plan of Treatment Upcoming Encounters Date Type Department Care Team (Late st Contact Info) Description 11/26/2024 2:00 PM EDT Appointment [facility] Lab [address] [facility] 5th Floor [address] [place] [address] 11/26/2024 2:30 PM EDT Appointment [facility] Lab [address] [facility] 5th Floor [address] [place] [address] 11/26/2024 3:20 PM EDT Office Visit [facility] [address] 5[address] [place] [address] Elisabet Schuster PA [address] [place] [address] 11/29/2024 2:30 PM EDT Office Visit [facility] [address] [place] [address] Oscar Appiah MD [address] [facility] [address] [place] [address] documented as of this encounter Goals Goal [...] as of this encounter Care Teams Gasoline Attendant Relationship Specialty Start Date End Date Asad Victor MD [address] [place] [address] PCP - General 10/07/22 documented as of this encounter
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
--- OUTSIDE RECORDS SUMMARY | 2024-11-16 08:24 | XMS_ITS | Encounter Summary ---
Author Organization [facility] Address [address] [place] [address] Care Team Providers Care Body Shop Manager Name Role Phone Asad [place] MD Primary Care Provider + [phone] Encounter Details Date Type Department Care Team [...] drink first t dino in the morning (EYE-RETAIL LOSS PREVENTION SPECIALIST) to steady your nerves or to [...] Appointment [facility] [address] 5th Floor Wing [address], [address] [place] [address] 11/26/2024 2:30 PM EDT Appointment [facility] [address] 5th Floor Wing [address], [address] [place] [address] 11/26/2024 3:20 PM EDT Office Visit [facility] [address] 5th Floor Wing D, [address] [place] [address] Elisabet Schuster, PA [address] [place] [address] 11/29/2024 2:30 PM EDT Office Visit [facility] [address] [facility] [address] Oscar Appiah MD [address] [facility] [address] [place] [address] documented as of this encounter [...] documented as of this encounter Care Teams Body Shop Manager Relationship Specialty Start Date End Date Asad [place] MD [address] [place] [address] PCP - General 10/07/22 documented as of this encounter
--- OUTSIDE RECORDS SUMMARY | 2024-11-16 08:25 | XMS_ITS | Encounter Summary ---
Author Organization Healthcare Address [address] [id number] Care Team Providers Care Security Monitor Name Role Phone Asad [place] MD Primary Care Provider + [phone] Encounter Details Date Type Department Care Team (Late st Contact Info) Description 10/22/2024 Telephone Vascular Surgery [address] [place] [address] Alison Beltrán, TRACTOR DRILL OPERATOR, DNP [address] [facility] [address] [place] [address] Social History Tobacco Use Types Packs/Day Years [...] drink first t dino in the morning (EYE-WINERY WORKER) to steady your nerves or to [...] Notes * Telephone Encounter - Alison Beltrán, TRACTOR DRILL OPERATOR, DNP - 10/22/2024 11:39 AM EDT Returned patient call. Patient s/p left common/superficial/profunda femoral thromboendarterectomy with bovine patch repair and left external iliac artery/LIFE GUARD stent with Dr Gautam on 10/17/24. Patient [...] Info) Description 11/26/2024 2:00 PM EDT Appointment [facility] [address] [place] [address] 11/26/2024 2:30 PM EDT Appointment [facility] [address] [place] [address] 11/26/2024 3:20 PM EDT Office Visit [facility] [address] [place] [address] Elisabet Schuster, PA [address] [facility] [address] [place] [address] 11/29/2024 2:30 PM EDT Office Visit [facility] [address] [place] [address] Oscar Appiah MD [address] [facility] [address] [place] [address] documented as of this encounter [...] documented as of this encounter Care Teams Security Monitor Relationship Specialty Start Date End Date Asad [place] MD [address] [place] [address] PCP - General 10/07/22 documented as of this encounter
--- OUTSIDE RECORDS SUMMARY | 2024-11-16 08:26 | XMS_ITS | Referral Summary ---
Author Organization [facility] ([place], [place], [place], [place]) Address [address] [place] [address] Care Team Providers Care Drug Abuse Technician Name Role Phone Unavailable Primary Care Provider [...] Description 11/18/2024 1:10 PM EDT Office Visit [address] [phone] Jerry Monroe Jr., MD [address] [place] [address] 11/20/2024 2:15 PM EDT Clinical Support [address] [phone] 11/22/2024 4:15 PM EDT Clinical Support [address] [phone] Insurance [facility] MEDICARE ADVANTAGE AETNA [facility] [place]
--- OUTSIDE RECORDS SUMMARY | 2024-11-16 08:26 | XMS_ITS | Encounter Summary ---
Author Organization Healthcare Address [address] [place] [address] Care Team Providers Care Machinist Helper Name Role Phone Asad [place] MD Primary Care Provider + [phone] Encounter Details Date Type Department Care Team (Late st Contact Info) Description 10/17/2024 Orders Only External Location [address] [place] [address] Provider, External Social History Tobacco Use Types [...] drink first t dino in the morning (EYE-POWER LINE INSTALLER AND REPAIRER) to steady your nerves or to get rid of a hangover? 0 10/18/2021 CAGE Questionnaire Score 0 022 Utilities Answer Date Recorded In the past 12 months has th e [employer], gas, oil, or water [employer] threatened to shut off services in your [...] Month) No 10/18/2024 8:30 PM EDT Kassie aMo, RN 2. Non-Specific Active Suici marcelle Thoughts (Past 1 Month) No 10/18/2024 8:30 PM EDT Rema Mao RN 6. Suicidal Behavior (Lifetime) No 8:30 PM EDT Kassie Mao RN documented as of this encounter Plan of Treatment Upcoming Encounters Date Type Department Care Team (Late st Contact Info) Description 11/26/2024 2:00 PM EDT Appointment [facility] [address] [facility] 5th Floor Wing D, [address] [place] [address] 11/26/2024 2:30 PM EDT Appointment [facility] [address] [facility] 5th Floor Wing D, [address] [place] [address] 11/26/2024 3:20 PM EDT Office Visit [facility] [address] [facility] 5th Floor Wing D, [address] [place] [address] Elisabet Schuster PA [address] [place] [address] 11/29/2024 2:30 PM EDT Office Visit [place] [address] [place] [address] [place] [address] [place] [address] [address] [place] [address] documented as of this encounter [...] documented as of this encounter Care Teams Machinist Helper Relationship Specialty Start Date End Date Asad [place] MD [address] [place] [address] PCP - General 10/07/22 documented as of this encounter
--- OUTSIDE RECORDS SUMMARY | 2024-11-16 08:26 | XMS_ITS | Encounter Summary ---
Author Organization [facility] Address [address] [place] [address] Care Team Providers Care Implementation Manager Name Role Phone Asad [place] MD Primary Care Provider + [phone] Encounter Details Date Type Department Care Team [...] first t dino in the morning (EYE-BARK SPUDDER) to steady your nerves or to get [...] Info) Description 11/26/2024 2:00 PM EDT Appointment [facility] [address] [place] [address] 11/26/2024 2:30 PM EDT Appointment [facility] [address] [place] [address] 11/26/2024 3:20 PM EDT Office Visit [facility] [address] 5th Floor [address], [address] [place] [address] Elisabet Schuster, PA [address] [place] [address] 11/29/2024 2:30 PM EDT Office Visit [facility] [address] [place] [address] Oscar Appiah MD [address] [facility] [address] [place] [address] documented as of this encounter [...] documented as of this encounter Care Teams Implementation Manager Relationship Specialty Start Date End Date Asad [place] MD [address] [place] [address] PCP - General 10/07/22 documented as of this encounter
--- OUTSIDE RECORDS SUMMARY | 2024-11-16 08:26 | XMS_ITS | Clinical Summary ---
Author Organization [facility] ([place], [place], [place], [place]) Address [address] [place] [address] Care Team Providers Care Ballet Professor Name Role Phone Unavailable Primary Care Provider [...] Description 11/18/2024 1:10 PM EDT Office Visit [address] [phone] Jerry [place] Jr., MD [address] [place] [address] 11/20/2024 2:15 PM EDT Clinical Support [address] [phone] 11/22/2024 4:15 PM EDT Clinical Support [address] [phone] Health Maintenance Due Date Last Done Comments [...] of 2 - PCV) 03/11/2021 COVID-19 VACCINE (3 - season) 2023, 07/31/2020 Falls Risk Screening 03/27/2024 Influenza Vaccine (#1) 2024 02/06/2021 Respiratory Syncytial Virus (RSV) Adult or (1 - 1-dose 75+ series) 2034 Insurance [facility] MEDICARE ADVANTAGE AETNA [facility]
--- OUTSIDE RECORDS SUMMARY | 2024-11-16 08:27 | XMS_ITS | Encounter Summary ---
Author Organization Healthcare Address [address] [place] [address] Care Team Providers Care Temperature Logging Operator Name Role Phone Asad [place] MD Primary Care Provider + [phone] Encounter Details Date Type Department Care Team (Late st Contact Info) Description 11/05/2024 Orders Only External Location [address] [place] [address] Provider, External Social History Tobacco Use Types [...] drink first t dino in the morning (EYE-GASTROENTEROLOGY TEACHER) to steady your nerves or to get rid of a hangover? 0 10/18/2021 CAGE Questionnaire Score 0 022 Utilities Answer Date Recorded In the past 12 months has th e [employer], gas, oil, or water company threatened to [...] [facility] [address] [facility] 5th Floor [address], [address] [place] [address] 11/26/2024 2:30 PM EDT Appointment [facility] [address] [facility] 5th Floor [address], [address] [place] [address] 11/26/2024 3:20 PM EDT Office Visit [facility] [address] 5th Floor [address] [place] [address] Elisabet Schuster PA [address] [place] [address] 11/29/2024 2:30 PM EDT Office Visit [place] [address] [place] [address] Oscar Appiah MD [address] [place] [address] [address] [place] [address] documented as of this encounter [...] documented as of this encounter Care Teams Temperature Logging Operator Relationship Specialty Start Date End Date Asad [place] MD [address] [place] [address] PCP - General 10/07/22 documented as of this encounter
--- OUTSIDE RECORDS SUMMARY | 2024-11-16 08:27 | XMS_ITS | Encounter Summary ---
Author Organization [facility] Address [address] [place] [address] Care Team Providers Care Undercover Agent Name Role Phone Asad [place] MD Primary Care Provider + [phone] Encounter Details Date Type Department Care Team [...] drink first t dino in the morning (EYE-DOUBLE BACKER) to steady your nerves or to get [...] Info) Description 11/26/2024 2:00 PM EDT Appointment [facility] [address] [facility] 5th Floor Wing D, [address] [place] [address] 11/26/2024 2:30 PM EDT Appointment [facility] [address], [address] [place] [address] 11/26/2024 3:20 PM EDT Office Visit [facility] [address] [facility] 5th Floor Wing [address], [address] [place] [address] Elisabet Schuster PA [address] [place] [address] 11/29/2024 2:30 PM EDT Office Visit [place] [address] [place] [address] Oscar Appiah MD [address] [place] [address] [address] [place] [address] documented as of this encounter [...] documented as of this encounter Care Teams Undercover Agent Relationship Specialty Start Date End Date Asad [place] MD [address] [facility] [address] [place] [address] PCP - General 10/07/22 documented as of this encounter
--- OUTSIDE RECORDS SUMMARY | 2024-11-16 08:27 | XMS_ITS | Encounter Summary ---
Author Organization Healthcare Address [address] [place] [address] Care Team Providers Care Billet Heater Name Role Phone Asad [place] MD Primary Care Provider + [phone] Encounter Details Date Type Department Care Team (Late st Contact Info) Description 11/15/2024 Clinical Support [address] [place] [address] Charly Orlando, PharmD [address] [place] [address] [address] [place] [address] Social History Tobacco Use Types [...] any time in the past 12 m [facility], were you homeless or living [...] drink first t dino in the morning (EYE-CORROSION CONTROL ENGINEER) to steady your nerves or to get rid of a hangover? 0 10/18/2021 CAGE Questionnaire Score 0 022 Utilities Answer Date Recorded In the past 12 months has th e [employer], gas, oil, or water company threatened to [...] [facility] [address] 5th Floor [address], [address] [place] [address] 11/26/2024 2:30 PM EDT Appointment [facility] [address] 5th Floor [address] [place] [address] 11/26/2024 3:20 PM EDT Office Visit [facility] [address] 5th Floor [address] [place] [address] Elisabet Schuster, PA [address] [place] [address] 11/29/2024 2:30 PM EDT Office Visit [facility] [address] [facility] [place] [address] Oscar Appiah MD [address] [facility] [address] [place] [address] documented as of this encounter [...] documented as of this encounter Care Teams Billet Heater Relationship Specialty Start Date End Date Asad [place] MD [address] [place] [address] PCP - General 10/07/22 documented as of this encounter
--- OUTSIDE RECORDS SUMMARY | 2024-11-16 08:29 | XMS_ITS | Encounter Summary ---
Author Organization Healthcare Address [address] [place] [address] Care Team Providers Care Planning Advisor Name Role Phone Asad [place] MD Primary Care Provider + [phone] Encounter Details Date Type Department Care Team [...] first t dino in the morning (EYE-COMMERCIAL REPRESENTATIVE) to steady your nerves or to [...] Description 11/26/2024 2:[address] [facility] [address] 5th Floor [address] [place] [address] 11/26/2024 2:[address] [facility] [address] 5th Floor [address] [place] [address] 11/26/2024 3:20 PM EDT Office Visit [facility] [address] 5th Floor [address] [place] [address] Elisabet Schuster PA [address] [place] [address] 11/29/2024 2:30 PM EDT Office Visit [facility] [address] [place] [address] Oscar Appiah MD [address] [facility] [address] [place] [address] documented as of this encounter Visit Diagnoses Not on filedocumented in this encounter Additional Health Concerns Assessment Noted Time A Body Mass Index follow-up plan has been documented for the patient 09/22/2024 2:53 PM EDT documented as of this encounter Care Teams Planning Advisor Relationship Specialty Start Date End Date Asad [place] MD [address] [facility] [place] [place] [address] PCP - General 10/07/22 documented as of this encounter
[2024-11-16] MEDS: SODIUM CHLORIDE 0.9% IV (09:15)
[2024-11-16] MEDS: MICAFUNGIN SODIUM IV (09:15)
[2024-11-16] MEDS: ERTAPENEM SODIUM 1 GM in 0.9 % SODIUM CHLORIDE 50 ML IV (09:45)
== END 2024-11-16 10:30 | disposition home or self-care (01) ==
LOC: INF 08:16
PROVIDERS: PCP Family Medicine; Visit Provider Student in an Organized Health Care Education/Training Program
DX: T14.8XXA Other injury of unspecified body region, initial encounter (principal); L08.9 Local infection of the skin and subcutaneous tissue, unspecified; X58.XXXA Exposure to other specified factors, initial encounter; Y93.9 Activity, unspecified; Y92.9 Unspecified place or not applicable
CPT/HCPCS: 96365; 96366; J1335; J2248

== ENCOUNTER 2024-11-17 08:17 | Outpatient (CLI) | payer MEDICARE, OTHER, SELFPAY ==
--- OUTSIDE RECORDS SUMMARY | 2024-09-20 21:25 | XMS_ITS | Encounter Summary ---
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 Nathaly Nowak MD [address] [address] Phone: tel: fax: [facility] A Emergency Department [address] [place] [address] Phone: tel: Referral ID Status Reason Start Date Expiration Date Visits Re quested Visits Authorized [id number] 1 1 Encounter Details Date Type Department Care Team (Latest Contact Info) Description 09/20/2024 9:25 PM EDT - 09/22/2024 4:00 PM EDT Hospital Encounter [facility] H Inpatient [address] [place] [id number] Robbie Braxton MD [address] [place] [address] Nathaly Nowak MD [address] [id number] [place] [address] Pseudoaneurysm of left femoral artery [...] drink first t dino in the morning (EYE-CREDIT CHECKER) to steady your nerves or to get [...] to schedule you next surgery. Questions: Call [phone] during business hours on week or call [facility]'s after hours at [phone] to speak with a resident video production coordinator for Vascular Surgery after 5pm or on [...] Carmona with any questions or concerns at [phone]. It is important that you get your [...] discharge instructions. No distress noted. 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 Awaiting his ride to arrive. Patient states his discharge ride is about 40 minutes away. * [facility] - Melecio Vega RN - 09/22/2024 2:52 PM EDT Images from the original note were not included. [id number] Peripheral Artery Disease (PAD) Peripheral artery disease [...] cause. Last Reviewed Date: 2024 00:00:00 ?? [id number] [employer]. All rights reserved. This information is not intended as a substitute for professional medical care. Always follow your healthcare professional's instructions. * [facility] - Melecio Vega RN - 09/22/2024 2:52 PM EDT Images from the original note were not included. [id number] Taking Aspirin for Atherosclerosis Aspirin is a [...] This includes: ? All prescription medicines ? Avwp-wtt-rqguxyf medicines ? Herbs, vitamins, and other supplements [...] pain Last Reviewed Date: 2022 00:00:00 ?? 4174-1295 [employer]. All rights reserved. This information is not [...] name and Address: Asad Victor MD (Inactive) [address] [place] [address] / [facility] [place] [address] Referring provider name and address: Timothy Marques PA [address] [place] [address] Chief Concern, Brief History of Present Illness, [...] Your Medications These medications were sent to [facility] - [place], [place] - [address] [facility] [address] oxyCODONE 5 MG immediate release tablet Discharge [...] soap and water daily. Pat to dry. Empire/ sutures will be removed at postoperative follow [...] to schedule you next surgery. Questions: Call [phone] during business hours on weekdays or call [facility]'s after hours at [phone] to speak with a resident video production coordinator for Vascular Surgery after 5pm or on [...] Carmona with any questions or concerns at [phone]. It is important that you get your [...] and Manage Fall Risk Flowsheets (Taken 09/22/2024 7973) Safety Promotion/Fall Prevention: activity supervised assistive device/personal [...] Regular diet - Repeat duplex 09/22 - [facility] - consider IO cath if sensation of [...] from the original note were not included. [facility] Department of Surgery Division of [...] Edited by: Anthony Keenan MD at 09/21/2024 7280 Review of Systems: Relevant review of systems [...] - Regular diet - Duplex 09/21: showed SUPERVISOR SCOURING PADS pseudoaneurysm - Repeat duplex 09/22 - [facility] Edited by: Anthony Keenan MD at 09/21/2024 9641 Dispo: Continue Current Level of Care Philipp Keenan MD General Surgery, PGY 1 Pager: [phone] Cosigned by Terrell Gautam MD at 09/23/2024 [...] femoral artery pseudoaneurysm Attending Surgeon(s): Terrell Gautam Signal Tower Operator(s): Jerry Holcomb Anesthesia: local ASA: 3 Blood [...] pseudoaneurysm sac is far away from the [place] artery as possible. Very slowly 0.2 cc [...] from the original note were not included. [facility] Department of Surgery Division of [...] At that time, the patient presented to [facility] and underwent an updated CTA which demonstrated concern for a left common femoral artery pseudo aneurysm. He was transferred to the [facility] for a higher level of [...] MINUTES. IF NO RELIEF AFTER 3 DOSES [id number]/GO TO ER 11/02/21 Darby Camara MD pravastatin [...] ongoing surgical planning. Plan: - [place] [facility] [place] Strict bedrest - NPO, mIVF - Will discuss surgical options in the morning Dispo: [place] [facility] CODE STATUS: full code This Consult, Assessment, and Plan has been discussed with Dr. Nowak, Attending Physician Shaila Lord [1] Past Medical History: Diagnosis Date Arthritis Old myocardial infarction History of myocardial infarction [2] No Known Allergies [3] Past Surgical History: Procedure Laterality Date ANKLE SURGERY Right CAROTID ENDARTERECTOMY N/A Endarterectomy Carotid Artery from [facility] CORONARY ANGIOPLASTY Left Coronary Angiography With Concomitant Left Heart Catheterization from [facility] CORONARY ARTERY BYPASS GRAFT N/A CABG from [facility] ELBOW SURGERY Right OTHER SURGICAL HISTORY N/A Reported Prior Surgical / Procedural History from [facility] [4] Family History Problem Relation Name Age [...] MINUTES. IF NO RELIEF AFTER 3 DOSES [id number]/GO TO ER pravastatin (Pravachol) 80 MG tablet [...] accompanied by pain [facility]. In the emergency department they obtained a CTA with runoff of the lower extremities which found a left-sided femoral pseudoaneurysm. The patient was transferred here for higher level of care. He has not had any lower extremity pallor, pain, weakness, or sensory changes. History provided by: Patient and medical records toy assembler used: No Patient History Past Medical History[1] [...] CAROTID ENDARTERECTOMY N/A Endarterectomy Carotid Artery from [facility] CORONARY ANGIOPLASTY Left Coronary Angiography With Concomitant Left Heart Catheterization from [facility] CORONARY ARTERY BYPASS GRAFT N/A CABG from [facility] ELBOW SURGERY Right OTHER SURGICAL HISTORY N/A Reported Prior Surgical / Procedural History from [facility] [3] Family History Problem Relation Name Age [...] - 09/20/2024 9:22 PM EDT Arrived from [facility]4 pt transferred from [facility] c/o left groin pain pt had stent x2 on 09/12 went to cardiology and was told to go to hospital. documented in this encounter Plan of Treatment Upcoming Encounters Date Type Department Care Team (Late st Contact Info) Description 11/26/2024 2:00 PM EDT Appointment [facility] [address] [place] [address] 11/26/2024 2:30 PM EDT Appointment [facility] [address] [place] [address] 11/26/2024 3:20 PM EDT Office Visit [facility] [address] [place] [address] Elisabet Schuster PA [address] [place] [address] 11/29/2024 2:30 PM EDT Office Visit [facility] [address] [place] [address] Oscar Appiah MD [address] [facility] [address] [place] [address] documented as of this encounter Procedures Procedure [...] Comment 09/22/2024 11:11 AM EDT HEALTHCARE LAB Email Marketing Manager ID Zena Rios 025 11:11 AM EDT HEALTHCARE LAB Device ID [id number] 09/22/2024 11:11 AM EDT HEALTHCARE LAB Specimen Type POC Capillary 09/22/2024 11:11 AM EDT [facility]ALTH[facility]ARE LAB Blood Capillary blood specimen / Unknown 09/22/2024 11:06 AM EDT 09/22/2024 11:11 AM EDT us Nathaly Nowak MD LAB POINT OF CARE TE ST DOCKED DEVICE UNSOLICITED RESULTS Final Result Performing Organization Address City/State/[facility] Co de Phone Number HEALTHCARE LAB [address] [place] [address] * VAS US Arterial Duplex Lower Extremity [...] 7:15 PM EDT CLINICAL INDICATION: s/p L SUPERVISOR SCOURING PADS pseudoaneurysm injection TECHNIQUE: Non-invasive, real time duplex [...] sac. The following flow velocities were obtained: SUPERVISOR SCOURING PADS: 114 cm/s SFA: 0 cm/s PFA: 278 cm/s Popliteal A: 41 cm/s INSPECTOR OUTSIDE PRODUCTION distal: 43 cm/s DPA: 67 cm/s Pseudoaneurysm sac: 0 cm/s Procedure Note Neil Isaac MD - 09/22/2024 CLINICAL INDICATION: s/p L SUPERVISOR SCOURING PADS pseudoaneurysm injection TECHNIQUE: Non-invasive, real time duplex exam of the lower extremity arterialcirculation with Doppler ultrasonic waveform and spectral analysis wasperformed. COMPARISON: Post pseudoaneurysm thrombin injection arterial duplex [id number]/28/2025; Following thrombin injection of the left common femoral arterypseudoaneurysm, no active flow is noted. Study suggests successfulthrombin injection therapy FINDINGS: Left: Following thrombin injection, an echogenic thrombus is noted within thepseudoaneurysm sac. Color and pulsed Doppler analysis demonstrates anabsence of flow within the pseudoaneurysm sac. The following flowvelocities were obtained: SUPERVISOR SCOURING PADS: 114 cm/s SFA: 0 cm/s PFA: 278 cm/s Popliteal A: 41 cm/s INSPECTOR OUTSIDE PRODUCTION distal: 43 cm/s DPA: 67 cm/s Pseudoaneurysm [...] Comment 09/22/2024 7:22 AM EDT HEALTHCARE LAB Email Marketing Manager ID Zena Rios 025 7:22 AM EDT HEALTHCARE LAB Device ID [id number] 09/22/2024 7:22 AM EDT HEALTHCARE LAB Specimen Type POC Capillary 09/22/2024 7:22 AM EDT [facility] Blood Capillary blood specimen / Unknown 09/22/2024 7:19 AM EDT 09/22/2024 7:22 AM EDT Nathaly Nowak MD LAB POINT OF CARE TE ST DOCKED DEVICE UNSOLICITED RESULTS Final Result [facility]ARE [facility] [address] [place] [address] * Magnesium (09/22/2024 3:49 AM EDT) Magnesium, Plasma 2.1 1.9 - 2.4 mg/dL 09/22/2024 4:49 AM EDT [facility] Blood Venous blood specimen / Unknown Venipuncture / Unknown 09/22/2024 3:49 AM EDT 09/22/2024 4:12 AM EDT Nathaly Nowak MD LAB BLOOD ORDERABLES Final Resu lt [facility] [address] [place] [address] * Phosphorus (09/22/2024 3:49 AM EDT) Phosphorus, Plasma 2.9 2.5 - 4.5 mg/dL 09/22/2024 4:49 AM EDT [facility] Blood Venous blood specimen / Unknown Venipuncture / Unknown 09/22/2024 3:49 AM EDT 09/22/2024 4:12 AM EDT us Nathaly Nowak MD LAB BLOOD ORDERABLES Final Resu lt Performing Organization Address [facility]/ZIP Co de Phone Number [facility] [address] [place] [address] * (ABNORMAL) Basic metabolic panel (09/22/2024 3:49 AM EDT) Pathologist [facility] Glucose, Plasma 132(H) 74 - 99 mg/dL 09/22/2024 4:49 AM EDT [facility] BUN, Plasma 15 8 - 23 mg/dL 09/22/2024 4:49 AM EDT [facility] Creatinine, Plasma 0.78 0.70 - 1.20 mg/dL 09/22/2024 4:49 AM EDT [facility] BUN/Creatinine Ratio 19 09/22/2024 4:49 AM EDT [facility] Sodium, Plasma 137 136 - 145 mmol/L 09/22/2024 4:49 AM EDT [facility] Potassium, Plasma 4.5 3.6 - 4.9 mmol/L 09/22/2024 4:49 AM EDT [facility] Chloride, Plasma 104 97 - 107 mmol/L 09/22/2024 4:49 AM EDT [facility] CO2, Plasma 24 22 - 29 mmol/L 09/22/2024 4:49 AM EDT [facility] Anion Gap 9 6 - 16 mmol/L 09/22/2024 4:49 AM EDT [facility] Total Calcium, Plasma 9.2 8.9 - 10.2 mg/dL 09/22/2024 4:49 AM EDT [facility] eGFRcr 99.0 mL/min/1.7 3m*2 09/22/2024 4:49 AM EDT [facility] Comment:Reported eGFRcr in m L/min/1.73m2 is based the CKD-EPI 2020 equation that does not use a race coefficient. Blood Venous blood specimen / Unknown Venipuncture / Unknown 09/22/2024 3:49 AM EDT 09/22/2024 4:12 AM EDT us Nathaly Nowak MD LAB BLOOD ORDERABLES Final Resu lt [facility] [address] [place] [address] * (ABNORMAL) CBC (09/22/2024 3:49 AM EDT) WBC Count 11.68(H) 3.70 - 10.30 10*3/uL LAB HEMATOLOGY METHOD 09/22/2024 4:26 AM EDT [facility] RBC Count 2.89(L) 4.60 - 6.10 10*6/uL LAB HEMATOLOGY METHOD 09/22/2024 4:26 AM EDT [facility] HGB 8.9(L) 13.7 - 17.5 g/dL LAB HEMATOLOGY METHOD 09/22/2024 4:26 AM EDT [facility] HCT 26.7(L) 40.0 - 51.0 % LAB HEMATOLOGY METHOD 09/22/2024 4:26 AM EDT [facility] Platelet Count 454(H) 155 - 369 10*3/uL LAB HEMATOLOGY METHOD 09/22/2024 4:26 AM EDT [facility] MCV 92 79 - 98 fL LAB HEMATOLOGY METHOD 09/22/2024 4:26 AM EDT [facility] MCH 30.8 26.0 - 32.0 pg LAB HEMATOLOGY METHOD 09/22/2024 4:26 AM EDT [facility] MCHC 33.3 30.7 - 35.5 g/dL LAB HEMATOLOGY METHOD 09/22/2024 4:26 AM EDT [facility] RDW 13.6 11.5 - 14.5 % LAB HEMATOLOGY METHOD 09/22/2024 4:26 AM EDT [facility] MPV 8.8 8.8 - 12.5 fL LAB HEMATOLOGY METHOD 09/22/2024 4:26 AM EDT [facility] nRBC 0.0 <=0.0 per 100 WBCs LAB HEMATOLOGY METHOD 09/22/2024 4:26 AM EDT [facility] Blood Venous blood specimen / Unknown Venipuncture / Unknown 09/22/2024 3:49 AM EDT 09/22/2024 4:14 AM EDT us Nathaly Nowak MD LAB BLOOD ORDERABLES Final Resu lt Performing Organization Address [facility] Co de Phone Number [facility] [address] [place] [phone] * (ABNORMAL) POCT glucose meter (09/21/2024 8:45 [...] 09/21/2024 8:47 PM EDT [facility] Email Marketing Manager ID Joy Reich 025 8:47 PM EDT HEALTHCARE LAB Device ID [id number] 09/21/2024 8:47 PM EDT HEALTHCARE LAB Specimen Type POC Capillary 09/21/2024 8:47 PM EDT [facility] Blood Capillary blood specimen / Unknown 09/21/2024 8:45 PM EDT 09/21/2024 8:47 PM EDT us Nathaly Nowak MD LAB POINT OF CARE TE ST DOCKED DEVICE UNSOLICITED RESULTS Final Result Performing Organization Address City/[facility]/ZIP Co de Phone Number [facility] [address] [place] [address] * (ABNORMAL) POCT glucose meter (09/21/2024 5:09 [...] Comment 09/21/2024 5:11 PM EDT HEALTHCARE LAB Email Marketing Manager ID Jojo Lange 025 5:11 PM EDT HEALTHCARE LAB Device ID [id number] 09/21/2024 5:11 PM EDT [facility]ALTH[facility]ARE LAB Specimen Type POC Capillary 09/21/2024 5:11 PM EDT [facility] Blood Capillary blood specimen / Unknown 09/21/2024 5:09 PM EDT 09/21/2024 5:11 PM EDT us Nathaly Nowak MD LAB POINT OF CARE TE ST DOCKED DEVICE UNSOLICITED RESULTS Final Result [facility] [address] [place] [address] * VAS US Arterial Duplex Lower Extremity [...] 09/21/2024 7:35 PM EDT CLINICAL INDICATION: s/p SUPERVISOR SCOURING PADS pseudoaneurysm injection TECHNIQUE: Non-invasive, real time duplex exam of the lower extremity arterial circulation with Doppler ultrasonic waveform and spectral analysis was performed. COMPARISON: None. FINDINGS: Left: Following thrombin injection, an echogenic thrombus is noted within the pseudoaneurysm sac. Color and pulsed Doppler analysis demonstrates an absence of flow within the pseudoaneurysm sac. The following flow velocities were obtained: SUPERVISOR SCOURING PADS: 55 cm/s SFA: 0 cm/s Popliteal A: 51 cm/s INSPECTOR OUTSIDE PRODUCTION distal: 35 cm/s DPA: 61 cm/s Pseudoaneurysm sac: 0 cm/s Procedure Note Neil Isaac MD - 09/21/2024 CLINICAL INDICATION: s/p SUPERVISOR SCOURING PADS pseudoaneurysm injection TECHNIQUE: Non-invasive, real time duplex exam of the lower extremity arterialcirculation with Doppler ultrasonic waveform and spectral analysis wasperformed. COMPARISON: None. FINDINGS: Left: Following thrombin injection, an echogenic thrombus is noted within thepseudoaneurysm sac. Color and pulsed Doppler analysis demonstrates anabsence of flow within the pseudoaneurysm sac. The following flowvelocities were obtained: SUPERVISOR SCOURING PADS: 55 cm/s SFA: 0 cm/s Popliteal A: 51 cm/s INSPECTOR OUTSIDE PRODUCTION distal: 35 cm/s DPA: 61 cm/s Pseudoaneurysm [...] POCT glucose meter (09/21/2024 1:04 PM EDT) [facility] POCT Glucose 177(H) 74 - 99 mg/dL [...] Comment 09/21/2024 1:09 PM EDT HEALTHCARE LAB Email Marketing Manager ID Ruth Solo 025 1:09 PM EDT HEALTHCARE LAB Device ID [id number] 09/21/2024 1:09 PM EDT [facility]ALTH[facility]ARE LAB Specimen Type POC Capillary 09/21/2024 1:09 PM EDT [facility] Blood Capillary blood specimen / Unknown 09/21/2024 1:04 PM EDT 09/21/2024 1:09 PM EDT us Nathaly Nowak MD LAB POINT OF CARE TE ST DOCKED DEVICE UNSOLICITED RESULTS Final Result Performing Organization Address City/State/[facility] Co de Phone Number [facility] [address] [place] [address] * (ABNORMAL) POCT glucose meter (09/21/2024 12:24 PM EDT) [facility] POCT Glucose 153(H) 74 - 99 mg/dL [...] 09/21/2024 12:26 PM EDT [facility] Email Marketing Manager ID Ruth Solo 025 12:26 PM EDT [facility] Device ID [id number] 09/21/2024 12:26 PM EDT HEALTH[facility]ARE LAB Specimen Type POC Capillary 09/21/2024 12:26 PM EDT [facility] Blood Capillary blood specimen / Unknown 09/21/2024 12:24 PM EDT 09/21/2024 12:26 PM EDT us Nathaly Nowak MD LAB POINT OF CARE TE ST DOCKED DEVICE UNSOLICITED RESULTS Final Result [facility] [address] [place] [address] * VAS US Arterial Duplex Lower Extremity [...] neck. The following flow velocities were obtained: SUPERVISOR SCOURING PADS: 93 cm/s SFA: 0 cm/s Popliteal A: 36 cm/s INSPECTOR OUTSIDE PRODUCTION distal: 34 cm/s DPA: 59 cm/s Pseudoaneurysm [...] neck. The following flow velocities were obtained: SUPERVISOR SCOURING PADS: 93 cm/s SFA: 0 cm/s Popliteal A: 36 cm/s INSPECTOR OUTSIDE PRODUCTION distal: 34 cm/s DPA: 59 cm/s Pseudoaneurysm [...] 09/21/2024 9:47 AM Final report signed by eNil Isaac MD on 09/21/2024 7:32 PM Nathaly Nowak MD CV VASCULAR PROCEDURES Final Re sult * (ABNORMAL) POCT glucose meter (09/21/2024 7:55 AM EDT) Pathologist [facility] POCT Glucose 130(H) 74 - 99 mg/dL [...] for testing. Comment 09/21/2024 8:01 AM EDT [facility] Email Marketing Manager ID Ruth Solo 025 8:01 AM EDT [facility] Device ID [id number] 09/21/2024 8:01 AM EDT [facility] Specimen Type POC Capillary 09/21/2024 8:01 AM EDT [facility] Blood Capillary blood specimen / Unknown 09/21/2024 7:55 AM EDT 09/21/2024 8:01 AM EDT Nathaly Nowak MD LAB POINT OF CARE TE ST DOCKED DEVICE UNSOLICITED RESULTS Final Result [facility] [address] [place] [address] * (ABNORMAL) POCT glucose meter (09/21/2024 6:06 AM EDT) Pathologist [facility] POCT Glucose 153(H) 74 - [...] Comment 09/21/2024 6:09 AM EDT HEALTHCARE LAB Email Marketing Manager ID Yuan Griffin 09/22/19 6:09 AM EDT HEALTHCARE LAB Device ID [id number] 09/21/2024 6:09 AM EDT HEALTHCARE LAB Specimen Type POC Capillary 09/21/2024 6:09 AM EDT [facility] Blood Capillary blood specimen / Unknown 09/21/2024 6:06 AM EDT 09/21/2024 6:09 AM EDT Nathaly Nowak MD LAB POINT OF CARE TE ST DOCKED DEVICE UNSOLICITED RESULTS Final Result Performing Organization Address City/[facility] Co de Phone Number [facility]ALTH[facility]ARE LAB [address] [place] [address] * (ABNORMAL) POCT glucose meter (09/21/2024 2:27 AM EDT) [facility] POCT Glucose 194(H) 74 - 99 mg/dL [...] Comment 09/21/2024 2:34 AM EDT HEALTHCARE LAB Email Marketing Manager ID Ana Maria Corea 09/21/2024 2:34 AM EDT HEALTHCARE LAB Device ID [id number] 09/21/2024 2:34 AM EDT HEALTH[facility]ARE LAB Specimen Type POC Capillary 09/21/2024 2:34 AM EDT [facility] Blood Capillary blood specimen / Unknown 09/21/2024 2:27 AM EDT 09/21/2024 2:34 AM EDT Nathaly Nowak MD LAB POINT OF CARE TE ST DOCKED DEVICE UNSOLICITED RESULTS Final Result Performing Organization Address City/[facility]/ZIP Co de Phone Number HEALTHCARE LAB [address] [place] [address] * ECG Adult (09/21/2024 2:00 AM EDT) [facility] EKG DIAGNOSIS CLASS Abnormal MUSE ECG Ventricular Rate 85 BPM MUSE ECG Atrial Rate 85 BPM MUSE ECG KS Interval 146 ms MUSE ECG QRSD Interval 128 ms MUSE ECG QT Interval 390 ms MUSE ECG QTC Interval 464 ms MUSE ECG P [place] 52 degrees MUSE ECG R [place] 263 degrees MUSE ECG T Wave [place] 57 degrees MUSE ECG Diagnosis Atrial-sensed ventricular-pace [...] HIV 1/2 Differentiation (09/20/2024 10:33 PM EDT) [facility] HIV 1 & 2 Antibody/Antigen Screen Non Reactive Non Reactive 09/20/2024 11:39 PM EDT [facility] Comment:Screening for HIV 1 & 2 antibodies, and P24 antigen is NONREACTIVE. No confirmatory testing is required. Blood Venous blood specimen / Unknown Venipuncture / Unknown 09/20/2024 10:33 PM EDT 09/20/2024 10:54 PM EDT us Giorgi Perkins MD LAB BLOOD ORDERABLES Final Result [facility] [address] [place] [address] * Hepatitis C Antibody - ED (09/20/2024 10:33 PM EDT) [facility] Hepatitis C Antibody Negative Negative 09/20/2024 11:39 PM EDT [facility] Blood Venous blood specimen / Unknown Venipuncture / Unknown 09/20/2024 10:33 PM EDT 09/20/2024 10:53 PM EDT us Giorgi Perkins MD LAB BLOOD ORDERABLES Final Result [facility] [address] [place] [address] * APTT (09/20/2024 10:33 PM EDT) aPTT 28 25 - 35 sec LAB COAGULATION METHOD 09/21/2024 12:19 AM EDT [facility] Blood Venous blood specimen / Unknown Venipuncture / Unknown 09/20/2024 10:33 PM EDT 09/20/2024 10:42 PM EDT us Giorgi Perkins MD LAB BLOOD ORDERABLES Final Result Performing Organization Address [facility] Co de Phone Number [facility] [address] [place] [address] * PT-INR (09/20/2024 10:33 PM EDT) Prothrombin Time 14.0 12.0 - 14.3 sec LAB COAGULATION METHOD 09/21/2024 12:19 AM EDT [facility] INR 1.1 0.9 - 1.1 LAB COAGULATION METHOD 09/21/2024 12:19 AM EDT [facility] Blood Venous blood specimen / Unknown Venipuncture / Unknown 09/20/2024 10:33 PM EDT 09/20/2024 10:42 PM EDT Narrative [facility] - 09/21/2024 12:19 AM EDT OPTIMAL INR RANGES FOR PATIENT ON ORAL ANTICOAGULANT THERAPY Prevention of venous thromboembolism INR 2.0 to 3.0 In patients with heart disease: Atrial fibrillation INR 2.0 to 3.0 Valvular heart disease INR 2.0 to 3.0 Tissue heart valves INR 2.0 to 3.0 Mechanical prosthetic valves INR 2.5 to 3.5 Prevention of recurrent VT INR 2.5 to 3.5 us Giorgi Perkins MD LAB BLOOD ORDERABLES Final Result [facility] [address] [place] [address] * (ABNORMAL) CBC w/diff (09/20/2024 10:33 PM EDT) WBC Count 13.38(H) 3.70 - 10.30 10*3/uL LAB HEMATOLOGY METHOD 09/20/2024 11:00 PM EDT [facility] RBC Count 2.91(L) 4.60 - 6.10 10*6/uL LAB HEMATOLOGY METHOD 09/20/2024 11:00 PM EDT [facility] HGB 9.0(L) 13.7 - 17.5 g/dL LAB HEMATOLOGY METHOD 09/20/2024 11:00 PM EDT [facility] HCT 27.2(L) 40.0 - 51.0 % LAB HEMATOLOGY METHOD 09/20/2024 11:00 PM EDT [facility] Platelet Count 407(H) 155 - 369 10*3/uL LAB HEMATOLOGY METHOD 09/20/2024 11:00 PM EDT [facility] MCV 94 79 - 98 fL LAB HEMATOLOGY METHOD 09/20/2024 11:00 PM EDT [facility] MCH 30.9 26.0 - 32.0 pg LAB HEMATOLOGY METHOD 09/20/2024 11:00 PM EDT [facility] MCHC 33.1 30.7 - 35.5 g/dL LAB HEMATOLOGY METHOD 09/20/2024 11:00 PM EDT [facility] RDW 13.6 11.5 - 14.5 % LAB HEMATOLOGY METHOD 09/20/2024 11:00 PM EDT [facility] MPV 9.0 8.8 - 12.5 fL LAB HEMATOLOGY METHOD 09/20/2024 11:00 PM EDT [facility] nRBC 0.0 <=0.0 per 100 WBCs LAB HEMATOLOGY METHOD 09/20/2024 11:00 PM EDT [facility] Differential Type Automated LAB HEMATOLOGY METHOD 09/20/2024 11:00 PM EDT [facility] Neutrophils % 77 % LAB HEMATOLOGY METHOD 09/20/2024 11:00 PM EDT [facility] Lymphocytes % 13 % LAB HEMATOLOGY METHOD 09/20/2024 11:00 PM EDT [facility] Monocytes % 8 % LAB HEMATOLOGY METHOD 09/20/2024 11:00 PM EDT [facility] Eosinophils % 1 % LAB HEMATOLOGY METHOD 09/20/2024 11:00 PM EDT [facility] Basophils % 0 % LAB HEMATOLOGY METHOD 09/20/2024 11:00 PM EDT [facility] Immature Granulocytes % 1 % LAB HEMATOLOGY METHOD 09/20/2024 11:00 PM EDT [facility] Neutrophils Absolute 10.28(H) 1.60 - 6.10 10*3/uL LAB HEMATOLOGY METHOD 09/20/2024 11:00 PM EDT [facility] Lymphocytes Absolute 1.67 1.20 - 3.90 10*3/uL LAB HEMATOLOGY METHOD 09/20/2024 11:00 PM EDT [facility] Monocytes Absolute 1.12(H) 0.30 - 0.90 10*3/uL LAB HEMATOLOGY METHOD 09/20/2024 11:00 PM EDT [facility] Eosinophils Absolute 0.14 0.00 - 0.50 10*3/uL LAB HEMATOLOGY METHOD 09/20/2024 11:00 PM EDT [facility] Basophils Absolute 0.05 0.00 - 0.10 10*3/uL LAB HEMATOLOGY METHOD 09/20/2024 11:00 PM EDT [facility] Immature Granulocytes Absolute 0.12(H) 0.00 - 0.06 10*3/uL LAB HEMATOLOGY METHOD 09/20/2024 11:00 PM EDT [facility] Blood Venous blood specimen / Unknown Venipuncture / Unknown 09/20/2024 10:33 PM EDT 09/20/2024 10:42 PM EDT Narrative [facility] - 09/20/2024 11:00 PM EDT Therapeutic decision making should be based on absolute values, rather than percentages. us Giorgi Perkins MD LAB BLOOD ORDERABLES Final Result [facility] [address] [place] [address] * (ABNORMAL) CMP (09/20/2024 10:33 PM EDT) Glucose, Plasma 170(H) 74 - 99 mg/dL 09/20/2024 11:03 PM EDT [facility] BUN, Plasma 27(H) 8 - 23 mg/dL 09/20/2024 11:03 PM EDT [facility] Creatinine, Plasma 0.93 0.70 - 1.20 mg/dL 09/20/2024 11:03 PM EDT [facility] BUN/Creatinine Ratio 29 09/20/2024 11:03 PM EDT [facility] Sodium, Plasma 134(L) 136 - 145 mmol/L 09/20/2024 11:03 PM EDT [facility] Potassium, Plasma 5.0(H) 3.6 - 4.9 mmol/L 09/20/2024 11:03 PM EDT [facility] Chloride, Plasma 101 97 - 107 mmol/L 09/20/2024 11:03 PM EDT [facility] CO2, Plasma 22 22 - 29 mmol/L 09/20/2024 11:03 PM EDT [facility] Anion Gap 11 6 - 16 mmol/L 09/20/2024 11:03 PM EDT [facility] Total Calcium, Plasma 9.1 8.9 - 10.2 mg/dL 09/20/2024 11:03 PM EDT [facility] Total Protein 6.6 6.3 - 7.9 g/dL 09/20/2024 11:03 PM EDT [facility] Albumin, Plasma 3.9 3.5 - 5.2 g/dL 09/20/2024 11:03 PM EDT [facility] AST, Plasma 11 10 - 50 U/L 09/20/2024 11:03 PM EDT [facility] ALT, Plasma 16 10 - 50 U/L 09/20/2024 11:03 PM EDT [facility] Alkaline Phosphatase, Plasma 132(H) 40 - 115 U/L 09/20/2024 11:03 PM EDT [facility] Total Bilirubin, Plasma 0.6 0.2 - 1.1 mg/dL 09/20/2024 11:03 PM EDT [facility] eGFRcr 91.1 mL/min/1.7 3m*2 09/20/2024 11:03 PM EDT [facility] Comment:Reported eGFRcr in m L/min/1.73m2 is based the CKD-EPI 2020 equation that does not use a race coefficient. 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
--- OUTSIDE RECORDS SUMMARY | 2024-10-11 10:15 | XMS_ITS | Encounter Summary ---
Author Organization [facility] Address [address] [place] [address] Care Team Providers Care Roadability Machine Operator Name Role Phone Asad Victor MD Primary Care Provider + [phone] Encounter Details Date Type Department Care Team (Latest Contact Info) Description 10/11/2024 10:15 AM EDT Pre-Admission Testing [facility] [address] [place] [phone] Preop testing (Primary Dx) Anesthesia Record Procedure [...] Hand; Site Prep: Chlorhexidine ; Local Anesth: [place]; Technique: Anatomical landmarks; Inserted by: CHRISTIAN Acuna; [...] G; Orientation: Right; Location: Axillary; Inserted by: INTERVENTIONAL TECH; Securement: Sutured; Patient Tolerance: Tolerated well; Removal [...] drink first t dino in the morning (EYE-SEARCH ENGINE OPTIMIZATION ANALYST) to steady your nerves or to get [...] CEA 2016 + 3rd degree AV block SENIOR WINDOWS SYSTEMS ENGINEER-P placed 08/2023 for Wenkeback with 11 sec pause + HLD + HTN - controlled + PAD 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 S/P intravascular lithotripsy of left common and external iliac artery with 2 continuous balloon mounted bare metal stents 09/12/24 on Xarelto and ASA + WILHELM occ, low energy for > year - had work-up recently in [place] (will get records) + peripheral edema LLE [...] ENDARTERECTOMY N/A 2017 Endarterectomy Carotid Artery from [facility] CORONARY ANGIOPLASTY Left Coronary Angiography With Concomitant Left Heart Catheterization from [facility] CORONARY ARTERY BYPASS GRAFT N/A 2018 3V ELBOW SURGERY Right OTHER SURGICAL HISTORY N/A Reported Prior Surgical / Procedural History from [facility] [5] No Known Allergies [6] Current Outpatient [...] card, photo ID, along with power of disability attorney, guardianship or advanced directives if applicable [...] Info) Description 11/26/2024 2:00 PM EDT Appointment [facility] [address] [facility] 5th Floor [address] [place] [address] 11/26/2024 2:30 PM EDT Appointment [facility] [address] [facility] 5th Floor [address], [address] [place] [address] 11/26/2024 3:20 PM EDT Office Visit [facility] [address] 5th [address] [place] [address] Elisabet Schuster PA [address] [place] [address] 11/29/2024 2:30 PM EDT Office Visit [facility] [address] [place] [address] Oscar Appiah MD [address] [facility] [address] [place] [address] documented as of this encounter [...] Modality Other Narrative 10/17/2024 9:50 AM EDT [facility]: Pre-operative CIED Report Assessment and Sara-Procedural Reommendations: Name: Mono Bobby Date: 10/17/2024 : 1960 Age: 64 y.o. Patient has a Contact Representative: Berger SENIOR WINDOWS SYSTEMS ENGINEER-PM Remaining battery longevity adequate. Lead integrity test [...] recommendations. Supporting reports can be found in [employer] media file. us Emelina DOSHI CV IMPLANTABLE [...] documented as of this encounter Care Teams Roadability Machine Operator Relationship Specialty Start Date End Date Asad Victor MD [address] [place] [address] PCP - General 10/07/22 documented as of this encounter
--- OUTSIDE RECORDS SUMMARY | 2024-10-16 14:45 | XMS_ITS | Encounter Summary ---
Author Organization Healthcare Address [address] [place] [address] Care Team Providers Care Kiln Door Builder Name Role Phone Asad Victor MD Primary Care Provider + [phone] Encounter Details Date Type Department Care Team (Latest Contact Info) Description 10/16/2024 2:45 PM EDT - 10/16/2024 11:59 PM EDT Hospital Encounter Cardiac Imaging [address] [place] [address] Discharge Disposition: Home or Self Care Social [...] drink first t dino in the morning (EYE-CROP AND SOIL TECHNICIAN) to steady your nerves or to [...] Description 11/26/2024 2:[address] [facility] Lab [address] [place] [address] 11/26/2024 2:[address] [facility] [address] [place] [address] 11/26/2024 3:20 PM EDT Office Visit [facility] [address] [place] [address] Elisabet Schuster PA [address] [facility] [address] [place] [address] 11/29/2024 2:30 PM EDT Office Visit [facility] [address] [place] [address] Oscar Appiah MD [address] [facility] [address] [place] [address] documented as of this encounter Goals Goal [...] Modality Other Narrative 10/17/2024 9:50 AM EDT [facility]: Pre-operative CIED Report Assessment and Sara-Procedural Reommendations: Name: Mono Bobby Date: 10/17/2024 : 1960 Age: 64 y.o. Patient has a Cloud Subject Matter Expert: Berger PAPER SAMPLE CLERK-PM Remaining battery longevity adequate. Lead integrity test [...] documented as of this encounter Care Teams Kiln Door Builder Relationship Specialty Start Date End Date Asad Victor MD [address] [facility] [place] [address] PCP - General 10/07/22 documented as of this encounter
--- OUTSIDE RECORDS SUMMARY | 2024-10-17 06:21 | XMS_ITS | Encounter Summary ---
Author Organization [facility] Address [address] [id number] Care Team Providers Care Train Gateman Name Role Phone Asad Victor MD Primary Care Provider [phone] Reason for Referral * Imaging (Routine) - Authorized Specialty Diagnoses / Procedures Referred By Susan t Referred To Contact Cardiology Diagnoses Critical limb ischemia of left lower extremity Pseudoaneurysm of left femoral artery (CMS/HCC) Procedures VAS US Arterial Duplex Lower Extremity Unilateral Left Terrell Gautam MD [address] [address] Phone: tel: fax: Referral ID Status Reason Start Date Expiration Date Visits Requested Visits Authorized [id number] Authorized Perform Procedure 10/19/2024 04/20/2026 1 1 * Imaging (Routine) - Authorized Specialty Diagnoses / Procedures Referred By Contac t Referred To Contact Cardiology Diagnoses Critical limb ischemia of left lower extremity Pseudoaneurysm of left femoral artery (CMS/HCC) Procedures VAS Ankle Brachial Index - Segmental Terrell Gautam MD [id number] [place] [address] Phone: tel: fax: Referral ID Status Reason Start Date Expiration Date Visits Requested Visits Authorized [id number] Authorized Perform Procedure 10/19/2024 04/20/2026 1 1 * Consultation (Routine) - Authorized Specialty Diagnoses / Procedures Referred By Contact Referred To Contact Vascular Surgery / [facility] Diagnoses Critical limb ischemia of left lower extremity Pseudoaneurysm of left femoral artery (CMS/HCC) Terrell Gautam MD [address] [place] [address] Phone: tel:[phone] fax:[phone] [facility] [address] [place] [address] [address]th Floor [address] [place] [address] Phone: tel: fax: Referral ID Status Reason Start Date Expiration Date Visits Requested Visits Authorized [id number] Authorized Specialty Services Required 10/19/2024 04/20/2026 [address] Gautam, with SIL, arterial duplex Reason for Visit * Auth/Cert (Routine) Specialty Diagnoses / Procedures Referred By Susan t Referred To Contact Diagnoses Critical limb ischemia of left lower extremity Critical limb ischemia of left lower extremity [I70.222] Procedures ND VEIN BYPASS GRAFT,FEM-POP CREATION, BYPASS, ARTERIAL, FEMORAL TO POPLITEAL Terrell Gautam MD [address] [place] [phone] Phone: tel: fax: [facility] [address] [place] [address] Phone: tel: Referral ID Status Reason Start Date Expiration Date Visits Re quested Visits Authorized [id number] 1 1 Encounter Details Date Type Department Care Team (Latest Contact Info) Description 10/17/2024 6:21 AM EDT - 10/19/2024 12:39 PM EDT Hospital Encounter [facility] Inpatient [address] [place] [id number] Terrell Gautam MD [address] [place] [address] Pseudoaneurysm of left femoral artery (CMS/HCC) [...] 0.6 oz pur e alcohol) holidays/special occasions Humiliation, Afraid, Rape, and Kick questionnair e Answer Date Recorded Within the last year, have y ou been afraid of your partner or ex-partner? No 10/18/2024 Within the last year, have y ou been humiliated or emotionally abused in other ways by your partner or ex-partner? No Within the last year, have y ou been kicked, hit, slapped, or otherwise physically hurt by your partner or ex-partner? No 10/18/2024 Within the last year, have y ou been raped or forced to have any kind of sexual activity by your partner or ex-partner? No 10/18/2024 Hunger Vital Sign Answer Date Recorded Within the past 12 months, y ou worried that your food would run out before you got the money to buy more. Never true 10/19/19 Within the past 12 months, t he food you bought just didn't last and you didn't have money to get more. Never true 10/18/2024 PRAPARE - Transportation Answer Date Re corded In the past 12 months, has l ack of transportation kept you from medical appointments or from getting medications? No 09/25 In the past 12 months, has l ack of transportation kept you from meetings, work, or from getting things needed for daily living? No 10/18/2024 Housing Stability Vital Sign Answer Sergio e Recorded In the last 12 months, was t here a time when you were not able to pay the mortgage or rent on time? No 10/18/2024 Number of Times Moved in the Last Year Not on fi le 10/18/2024 At any time in the past 12 m [facility], were you homeless or living in a penitentiary (including now)? No 10/18/2024 CAGE ASSESSMENT Answer Date Recorded Cage unable [...] Have you had a drink first t dnio in the morning (EYE-SUPERVISORY HISTORIAN) to steady your nerves or to get rid of a hangover? 0 10/18/2021 CAGE Questionnaire Score 0 022 Utilities Answer Date Recorded In the past 12 months has th [employer], gas, oil, or water Exitround threatened to shut off services in your home? No 10/18/2024 Sex and Gender Information Value Date Recorded Sex Assigned at Not on file Legal Sex Male 8:57 PM EDT Gender Identity Not on file Sexual Orientation Not on file documented as of this encounter Last Filed Vital Signs Vital Sign Reading Time Taken Comments Blood Pressure 133/54 10/19/2024 11:07 AM EDT Pulse 77 10/19/2024 11:07 AM EDT Temperature 36.9 C (98.4 F) 10/19/2024 11:07 AM EDT Respiratory Rate 16 10/19/2024 11:07 AM EDT Oxygen Saturation 94% 10/19/2024 11:07 AM EDT Inhaled Oxygen Concentration - - Weight 93 kg (205 lb 0.4 oz) 10/18/2024 4:00 AM EDT Height 170.2 cm (5' 7.01 ) 10/17/2024 1:20 PM ED T Body Mass Index 32.1 10/17/2024 1:20 PM EDT documented in this encounter Functional Status * Calculated C-SSRS Risk Score (Lifetime/Recent) Answer Date of Assessment Author No Risk Indicated 10/18/2024 8:30 PM EDT Kassie Mao RN * Question Answer Date of Assessment Author 1. Wish to be (Past 1 Month) No 10/18/2024 8:30 PM EDT Kassie Mao RN 2. Non-Specific Active Suici marcelle Thoughts (Past 1 Month) No 10/18/2024 8:30 PM EDT Rema Mao RN 6. Suicidal Behavior (Lifetime) No 8:30 PM EDT Kassie Mao RN documented as of this encounter Discharge Instructions * Discharge Instructions* Ashley Moore MD - 10/19/2024 11:00 AM EDT documented in this encounter Medications at Time [...] hours for 10 days. 60 tablet 10/19/2024 5 insulin lispro protamine-insulin lispro (HumaLOG Mix 75-25) (75-25) 100 UNIT/ML injection vial Inject 12 Units under the skin 2 times a day with meals. 5 ondansetron ODT (Zofran-ODT) 4 MG disintegrating tablet Dissolve 1 tablet on the tongue every 6 hours as needed for nausea or vomiting. 20 tablet 10/19/2024 oxyCODONE (Roxicodone) 5 MG immediate release tablet Take 1 tablet by mouth every 4 hours as needed for moderate pain or severe pain for up to 15 doses. 15 tablet 10/19/2024 5 documented as of this encounter Miscellaneous Notes * Care Plan - Keyla Chow - 10/19/2024 11:46 AM EDT Problem: Adult Inpatient Plan of Care Goal: Plan of Care Review 10/19/20241144 by Keyla Chow Outcome: Met Flowsheets Taken 10/19/20241144 Progress: improving Taken 10/19/2024 1048 Plan of Care Reviewed With: patient 10/19/2024 1048 by Keyla Chow Outcome: Ongoing, Progressing Flowsheets (Taken 10/19/2024 1048) Progress: improving Plan of Care Reviewed With: patient Goal: Patient-Specific Goal (Individualized) 10/19/2024 114 by Keyla Chow Outcome: Met 10/19/2024 1048 by Keyla Chow Outcome: Ongoing, Progressing Goal: Absence of Hospital-Acquired Illness or Injury 10/19/2024 1145 by Keyla Chow Outcome: Met 10/19/2024 1048 by Keyla Chow Outcome: Ongoing, Progressing Intervention: Identify and Manage Fall Risk Flowsheets (Taken 10/18/20242029 by Kassie Mao, CHRISTIAN) Safety Promotion/Fall Prevention: clutter-free environment maintained fall prevention program maintained Intervention: Prevent and Manage VTE (Venous Thromboembolism) Risk Flowsheets (Taken 10/19/2024 1048) VTE Prevention/Management: bilateral SCDs (sequential compression devices) off education provided patient refused intervention Goal: Optimal Comfort and Wellbeing 10/19/2024 114 by Keyla Chow Outcome: Met 10/19/2024 1048 by Keyla Chow Outcome: Ongoing, Progressing Goal: Readiness for Transition of Care 10/19/2024 1145 by Keyla Chow Outcome: Met 10/19/2024 1048 by Keyla Chow Outcome: Ongoing, Progressing Problem: Fall Injury Risk Goal: Absence of Fall and Fall-Related Injury 10/19/2024 1145 by Keyla Chow Outcome: Met 10/19/2024 1048 by Keyla Chow Outcome: Ongoing, Progressing Intervention: Identify and Manage Contributors Flowsheets Taken 10/19/2024 1048 by Keyla Chow Self-Care Promotion: BADL personal objects within reach meal set-up provided Taken 10/17/20242107 by Jourdan Grimes II registered dietician Review/Management: medications reviewed Problem: Skin Injury Risk Increased Goal: Skin Health and Integrity 10/19/2024 1145 by Keyla Chow Outcome: Met 10/19/2024 1048 by Keyla Chow Outcome: Ongoing, Progressing Problem: Surgery Nonspecified Goal: Absence of Bleeding 10/19/2024 1145 by Keyla Chow Outcome: Met 10/19/2024 1048 by Keyla Chow Outcome: Ongoing, Progressing Intervention: Monitor and Manage Bleeding Flowsheets (Taken 10/19/2024 1048) Bleeding Management: dressing monitored Goal: Effective Bowel Elimination 10/19/2024 1145 by Keyla Chow Outcome: Met 10/19/2024 1048 by Keyla Chow Outcome: Ongoing, Progressing Goal: Fluid and Electrolyte Balance 10/19/2024 1145 by Keyla Chow Outcome: Met 10/19/2024 1048 by Keyla Chow Outcome: Ongoing, Progressing Goal: Blood Glucose Level Within Target Range 10/19/2024 1145 by Keyla Chow Outcome: Met 10/19/2024 1048 by Keyla Chow Outcome: Ongoing, Progressing Goal: Absence of Infection Signs and Symptoms 10/19/2024 1145 by Keyla Chow Outcome: Met 10/19/2024 1048 by Keyla Chow Outcome: Ongoing, Progressing Intervention: Prevent or Manage Infection Flowsheets (Taken 10/19/2024 1048) Infection Management: aseptic technique maintained Fever Reduction/Comfort Measures: lightweight bedding Goal: Anesthesia/Sedation Recovery 10/19/2024 1145 by Keyla Chow Outcome: Met 10/19/2024 1048 by Keyla Chow Outcome: Ongoing, Progressing Goal: Optimal Pain Control and Function 10/19/2024 1145 by Keyla Chow Outcome: Met 10/19/2024 1048 by Keyla Chow Outcome: Ongoing, Progressing Intervention: Prevent or Manage Pain Flowsheets (Taken 10/19/2024 1048) Pain Management Interventions: medication (see MAR) Diversional Activities: television Goal: Nausea and Vomiting Relief 10/19/2024 1145 by Keyla Chow Outcome: Met 10/19/2024 1048 by Keyla Chow Outcome: Ongoing, Progressing Goal: Effective Urinary Elimination 10/19/2024 1145 by Keyla Chow Outcome: Met 10/19/2024 1048 by Keyla Chow Outcome: Ongoing, Progressing Goal: Effective Oxygenation and Ventilation 10/19/2024 1145 by Keyla Chow Outcome: Met 10/19/2024 1048 by Keyla Chow Outcome: Ongoing, Progressing Problem: Self-Care Deficit Goal: Improved Ability to Complete Activities of Daily Living 10/19/2024 1145 by Keyla Chow Outcome: Met 10/19/2024 1048 by Keyla Chow Outcome: Ongoing, Progressing Intervention: Promote Activity and Functional [place] Flowsheets (Taken 10/19/2024 1048) Self-Care Promotion: BADL personal objects within reach meal set-up provided * Yuni Ramires - Keyla Chow - 10/19/2024 11:45 AM EDT Images from the original note were not included. [id number] After Peripheral Artery Bypass Surgery: In the Hospital After peripheral artery bypass surgery, plan on being in the hospital for about 3 to 8 days. The length of your stay depends on the type of bypass you have, your health, and your response to surgery.You can expect to have pain in your incision (cut) and discomfort after the surgery for several days to a week. You may also have swelling and draining at the surgery site. Right after surgery Your healthcare providers will watch you closely in the recovery room. From there, you may go to anintensive care unit (ICU), if needed. Once you're stable, your healthcare provider will move you toa regular hospital room. Your leg may swell and be painful. But your provider will give you medicine to control pain and prevent infection. As you regain strength You will be encouraged to start walking soon. Wear slippers or shoes to protect your feet. Raise (elevate) your leg whenever you're sitting. Tell a nurse right away if you have chest pain, foot pain,or shortness of breath. Also let your surgeon know if your incision becomes swollen or is draining,or if you have constipation. Nurses will come by often to check the pulses in your leg and check the incision site. Let them know if you feel coolness or numbness in your leg or foot. Before going home, your healthcare provider may teach you to take your pulse in your leg. Why walk? Walking is a big part of your early recovery. Walking reduces swelling and helps your incision heal. Walking also helps prevent lung problems, such as pneumonia. It also reduces your risk of developing blood clots in the veins of your legs. The sooner you recover in the hospital, the sooner you cango home. Last Reviewed Date: 2023 00:00:00 ?? 0613-1533 [employer]. All rights reserved. This information is not intended as a substitute for professional medical care. Always follow your healthcare professional's instructions. * Progress Notes - Emelina Friend - 10/19/2024 11:44 AM EDT Case Management Adult Progress Note Bev Bobby 64 y.o. male CSN: [id number] Admission: 10/17/2024 6:21 AM Primary Problem: Critical limb ischemia of left lower extremity Anticipated Discharge Date: 10/19/24 Has Discharge Plans Changed? No Medicare Second Notice: Housing Circumstances: Not Applicable Housing Circumstances Action Taken: Other na Medically Ready for Discharge: Ready Now Additional Comments Pt is ready for discharge. SW requested to asissit with arranging discharge transportation. PT meets 300%FPG. Pt utilizes [facility] in the community; [facility] arranged for discharge transportation to home address. Pt will be picked up in the discharge lounge. No other discharge needs identified. SW will remain available through discharge if any other needs arise. Emelina Friend TALKING BOOKS LIBRARY CLERK, BIODIESEL PRODUCTION ASSOCIATE Social Work Case Management * Yuni Ramires Solis Davidon Keyla - 10/19/2024 11:44 AM EDT Images from the original note were not included. [id number] Peripheral Artery Disease (PAD) Peripheral artery disease [...] cause. Last Reviewed Date: 2024 00:00:00 ?? 1220-9991 [employer]. All rights reserved. This information is not intended as a substitute for professional medical care. Always follow your healthcare professional's instructions. * Yuni Ramires - Keyla Chow - 10/19/2024 11:44 AM EDT Images from the original note were not included. [id number] Leg Artery Emergencies: Critical Limb Ischemia (CLI) Critical limb ischemia (CLI) is a condition that can occur over time when your leg arteries are damaged. It's a severe form of peripheral arterial disease (PAD). PAD is caused when leg arteries are narrowed, reducing blood flow. If blood flow to the toe, foot, or leg is completely blocked, the tissue starts to (gangrene). If this happens, you need medical care right away to restore blood flowand possibly save the leg. But even with the best medical care, it might not be possible to save a severely affected limb. When do you need emergency care? CLI can get worse and cause an urgent problem. For instance, if you have a wound, it may not heal. This can lead to gangrene. Go to the emergency room right away if you have any of these symptoms: ? A wound that's foul-smelling, draining pus, or discolored ? Severe foot or leg pain that occurs suddenly without injury, especially if the foot or leg is cold or numb Call your healthcare provider if: ? You have a cut or pressure injury that doesn't heal ? You have foot or leg pain that happens when walking but goes away with rest. This may be a sign of blocked arteries. How is critical limb ischemia diagnosed? Certain tests may be done to find out if you have CLI. First, your healthcare provider will carefully examine you, checking for pulses at several places. Other common tests include: ? Ankle-brachial index (SIL). The blood pressure in your ankle is compared with the blood pressure in your arm. ? Duplex ultrasound. Harmless sound waves are used to create images of blood flow in your legs. ? Arteriography. X-ray dye (contrast medium) is injected into the artery using a thin, flexible tube (catheter). This allows blood vessels to be seen easily on X-rays. How is critical limb ischemia treated? Possible treatments for CLI include: ? Dissolving or removing a blood clot. To dissolve a clot, a tube (catheter) is put into an artery in your groin. Clot-busting medicine is put into the tube to dissolve the clot. Or surgery may be done to remove the clot. A cut (incision) is made in the artery at the blocked area. The clot is then removed. ? Angioplasty. A tiny, uninflated balloon is sent to the narrowed area by a catheter. It's then inflated to widen the artery. The balloon is deflated and removed. ? Stenting. After angioplasty, a tiny wire mesh tube (stent) may be put in the artery to help hold it open. The stent is also put in using a catheter. ? Endarterectomy. An incision is made in the artery at the blocked area. The material that blocks the artery is then removed from artery christian. ? Peripheral bypass surgery. A natural or artificial graft is used to bypass the blocked area. ? Amputation. If left untreated, the affected area may have to be removed (amputated). How can critical limb ischemia emergencies be prevented? Know the signs and symptoms of a leg artery emergency. If you have diabetes or poor blood circulation, check your feet daily for wounds, sores, blisters, and color changes. Contact your healthcare provider right away if you find any of these changes. If you smoke, get help to stop. Take all of yourmedicines as prescribed and keep all of your follow-up appointments. Last Reviewed Date: 2023 00:00:00 ?? 1327-3185 [employer]. All rights reserved. This information is not intended as a substitute for professional medical care. Always follow your healthcare professional's instructions. * Discharge Summary - Dandy Baltazar MD - 10/19/2024 11:31 AM EDT Hospitalization Admit Date/Time: 10/17/2024 6:21 AM Admitting Attending: Terrell Gautam Discharge Date: 10/19/24 Discharge Attending Physician: Nirmal Cueto MD PCP name and Address: Asad Victor MD (Inactive) [address] [place] [address] / [facility] [address] Referring provider name and address: Timothy Marques PA [address] [place] [address] [place] [address] Chief Concern, Brief History of Present Illness, and Hospital Course Bev Bobby is an 64 y.o. 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 He previously underwent ultrasound guided thrombin injection of the pseudoaneurysm. AT follow-up he was found to have rest pain and findings concerning for chronic limbischemia. He presented 10/17/2024 for scheduled surgery. He was planned to under left lower extremity bypass and pseudoaneurysm repair. He underwent successful left femoral endarterectomy with external iliac/common femoral artery stenting. He had good popliteal flow and thus decision was made not toproceed with bypass. He was admitted for post operative care. He recovered without complication. On10/19/24 the patient's pain was well controlled on an oral regimen. They had return of bowel function and where tolerating a regular diet with no nausea/vomiting. There where no difficulties voiding.The patient was hemodynamically stable and was deemed appropraite for discharge to home with assistance. The patient will followup with Dr. Gautam in clinic in one month with arterial duplex and SIL. Surgeries and Procedures CREATION, BYPASS, ARTERIAL, FEMORAL TO POPLITEAL (Left) Medication List .. acetaminophen 500 MG tablet Commonly known as: Tylenol Take 2 tablets by mouth every 8 hours for 10 days. clopidogrel 75 MG tablet Commonly known as: Plavix Take 1 tablet by mouth daily. Start taking on: October 20, 2024 docusate sodium 100 MG capsule Commonly known as: Colace Take 1 capsule by mouth daily. insulin aspart protamine-insulin aspart (70-30) 100 UNIT/ML injection vial Commonly known as: NovoLOG Mix 70-30 Inject 15 Units under the skin 2 times a day with meals. insulin glargine 100 UNIT/ML injection vial Commonly known as: Lantus Inject 28 Units under the skin nightly. insulin lispro protamine-insulin lispro (75-25) 100 UNIT/ML injection vial Commonly known as: HumaLOG Mix 75-25 Inject 12 Units under the skin 2 times a day with meals. lisinopril 10 MG tablet Take 1 tablet by mouth daily. metoprolol tartrate 100 MG tablet Commonly known as: Lopressor Take 1 tablet by mouth 2 times a day. ondansetron ODT 4 MG disintegrating tablet Commonly known as: Zofran-ODT Dissolve 1 tablet on the tongue every 6 hours as needed for nausea or vomiting. oxyCODONE 5 MG immediate release tablet Commonly known as: Roxicodone Take 1 tablet by mouth every 4 hours as needed for moderate pain or severe pain for up to 15 doses. pravastatin 40 MG tablet Commonly known as: Pravachol Take 1 tablet by mouth nightly. rivaroxaban 20 MG tablet Commonly known as: Xarelto Take 1 tablet by mouth 1 time each day with dinner. Take with food. rOPINIRole 1 MG tablet Commonly known as: Requip Take 2 tablets by mouth 2 times a day. tamsulosin 0.4 MG 24 hr capsule Commonly known as: Flomax Take 1 capsule by mouth every evening. Where to Get Your Medications These medications were sent to [facility] - [place], [place] - [address] , [facility] [address] acetaminophen 500 MG tablet clopidogrel 75 MG tablet insulin aspart protamine-insulin aspart (70-30) 100 UNIT/ML injection vial ondansetron ODT 4 MG disintegrating tablet oxyCODONE 5 MG immediate release tablet rivaroxaban 20 MG tablet Information about where to get these medications is not yet available Ask your nurse or doctor about these medications rOPINIRole 1 MG tablet Discharge Diagnosis Medical Problems Active and Resolved Hospital Problems Hospital * (Principal) Critical limb ischemia of left lower extremity Post Discharge Instructions Call your provider if you experience: Any questions or concerns Please call vascular surgery if any redness in your incisions, swelling or bruising. If you have any issues with the wound vacuum device. Difficulty breathing, headache, or visual disturbances Inability to eat, drink, or take medication Persistent nausea or vomiting Temperature >100.4 (38 degrees Celsius) Drainage or redness from wounds, worsening pain in your legs. Activity instructions Change Dressing: No need to change Dressing Removal: Other Remove the wound vacuum in your groin on October 23, 2024. There is no need to replace a bandage sooner. IF you notice that before this date the wound vacuum stops working, or the sponge is no longer sucked down by the vacuum please call the vascular surgery office, the vacuum may need removed sooner. Exercise instructions: we encourage light exercise and daily walking during recovery Lifting Restriction: 10 pounds For 4 weeks after surgery, or until first post operative visit. No driving for while taking narcotic pain medications, or while pain limits mobility. No strenuous activity Normal activity as tolerated Hygiene instructions: Do not soak in tub/pool for 14 days, you may shower. Knee incision may get wet. Towel dry. Your knee incision is covered with dermabond, a skin glue and has absorbable sutures. Please keep incision clean and dry. There is no need to place a dressing over that. Please see instructions from removing purple wound vacuum over groin incision. Diet instructions Diet type: Return to previous diet Instructions: Continue on the same type of diet and foods as you were eating before your admission.Drink plenty of water. Outpatient Follow-Up Follow up with [facility] Associated diagnoses: Balloon like swelling in an artery of the leg Critical limb ischemia of left lower extremity [address] [facility] [id number] Test Results Pending At Discharge Pending Labs Order Current Status Surgical Pathology Exam In process Prepare Leukocyte Reduced RBC: 2 Units Preliminary result Pertinent Physical Exam At Time of Discharge Physical Exam GEN: no apparent distress, well nourished male HENT: atraumatic, normocephalic EYES: no scleral icterus, no visible conjunctival hemorrhage RESP: no respiratory distress, symmetric chest rise CV: appears well perfused, normal rate ABD: non-tender, non-distended, no obvious masses MSK/EXT: no apparent deformities, strength/tone normal, palpable left lower extremity pulses, knee incision with dermabond, preevna vac on left groin : deferred NEURO: alert and oriented, no focal CN deficits PSYCH: appropriate affect, mood congruent, interactive Discharge Disposition/Condition Disposition: Home Condition: Stable (s/sx potential problems absent or manageable) I spent >30 minutes of patient care and instruction time in preparation for this discharge. Cosigned by Nirmal Cueto MD at 10/21/2024 7:13 AM EDT Associated attestation - Nirmal Cueto MD - 10/21/2024 7:13 AM EDT I saw and evaluated the patient. I discussed the case with the resident/fellow and agree with the findings and plan as documented. and I spent >30 minutes of patient care and instruction time in preparation for this discharge. * Hospital Course - Dandy Baltazar MD - 10/19/2024 11:27 AM EDT Bev Bobby is an 64 y.o. 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 He previously underwent ultrasound guided thrombin injection of the pseudoaneurysm. AT follow-up he was found to have rest pain and findings concerning for chronic limbischemia. He presented 10/17/2024 for scheduled surgery. He was planned to under left lower extremity bypass and pseudoaneurysm repair. He underwent successful left femoral endarterectomy with external iliac/common femoral artery stenting. He had good popliteal flow and thus decision was made not toproceed with bypass. He was admitted for post operative care. He recovered without complication. On10/19/24 the patient's pain was well controlled on an oral regimen. They had return of bowel function and where tolerating a regular diet with no nausea/vomiting. There where no difficulties voiding.The patient was hemodynamically stable and was deemed appropraite for discharge to home with assistance. The patient will followup with Dr. Gautam in clinic in one month with arterial duplex and SIL. * Care Plan - Keyla Chow - 10/19/2024 10:55 AM EDT Problem: Adult Inpatient Plan of Care Goal: Plan of Care Review Outcome: Ongoing, Progressing Flowsheets (Taken 10/19/2024 1048) Progress: improving Plan of Care Reviewed With: patient Goal: Patient-Specific Goal (Individualized) Outcome: Ongoing, Progressing Goal: Absence of Hospital-Acquired Illness or Injury Outcome: Ongoing, Progressing Intervention: Identify and Manage Fall Risk Flowsheets (Taken 10/18/20242029 by Kassie Mao, RN) Safety Promotion/Fall Prevention: clutter-free environment maintained fall prevention program maintained Intervention: Prevent and Manage VTE (Venous Thromboembolism) Risk Flowsheets (Taken 10/19/2024 1048) VTE Prevention/Management: bilateral SCDs (sequential compression devices) off education provided patient refused intervention Goal: Optimal Comfort and Wellbeing Outcome: Ongoing, Progressing Goal: Readiness for Transition of Care Outcome: Ongoing, Progressing Problem: Fall Injury Risk Goal: Absence of Fall and Fall-Related Injury Outcome: Ongoing, Progressing Intervention: Identify and Manage Contributors Flowsheets Taken 10/19/2024 1048 by Keyla Chow Self-Care Promotion: BADL personal objects within reach meal set-up provided Taken 10/17/20242107 by Jourdan Grimes II, registered dietician Review/Management: medications reviewed Problem: Skin Injury Risk Increased Goal: Skin Health and Integrity Outcome: Ongoing, Progressing Problem: Surgery Nonspecified Goal: Absence of Bleeding Outcome: Ongoing, Progressing Intervention: Monitor and Manage Bleeding Flowsheets (Taken 10/19/2024 1048) Bleeding Management: dressing monitored Goal: Effective Bowel Elimination Outcome: Ongoing, Progressing Goal: Fluid and Electrolyte Balance Outcome: Ongoing, Progressing Goal: Blood Glucose Level Within Target Range Outcome: Ongoing, Progressing Goal: Absence of Infection Signs and Symptoms Outcome: Ongoing, Progressing Intervention: Prevent or Manage Infection Flowsheets (Taken 10/19/2024 1048) Infection Management: aseptic technique maintained Fever Reduction/Comfort Measures: lightweight bedding Goal: Anesthesia/Sedation Recovery Outcome: Ongoing, Progressing Goal: Optimal Pain Control and Function Outcome: Ongoing, Progressing Intervention: Prevent or Manage Pain Flowsheets (Taken 10/19/2024 1048) Pain Management Interventions: medication (see MAR) Diversional Activities: television Goal: Nausea and Vomiting Relief Outcome: Ongoing, Progressing Goal: Effective Urinary Elimination Outcome: Ongoing, Progressing Goal: Effective Oxygenation and Ventilation Outcome: Ongoing, Progressing Problem: Self-Care Deficit Goal: Improved Ability to Complete Activities of Daily Living Outcome: Ongoing, Progressing Intervention: Promote Activity and Functional [place] Flowsheets (Taken 10/19/2024 1048) Self-Care Promotion: BADL personal objects within reach meal set-up provided * Progress Notes - Femi Cole - 10/19/2024 9:08 AM EDT PHYSICAL THERAPY EVALUATION Patient Name Bev Bobby Session Date 10/19/2024 Total Treatment Time 23 min PT Discharge Recommendations Home with assistance Equipment Recommendations Patient owns appropriate equipment HISTORY Bev Bobby is 64 y.o. male admitted 10/17/2024 for work-up of Critical limb ischemia of left lower extremity. Hospital Course 1. Pseudoaneurysm of left femoral artery (CMS/HCC) 2. Critical limb ischemia of left lower extremity Procedures (if applicable) 10/17/2024 Procedure(s): CREATION, BYPASS, ARTERIAL, FEMORAL TO POPLITEAL Past Medical History Patient has a past medical history of Arthritis and Old myocardial infarction. Past Surgical History Patient has a past surgical history that includes Coronary artery bypass graft (N/A, 2019); Carotid endarterectomy (N/A, 2017); Coronary angioplasty (Left); Ankle surgery (Right); Elbow surgery (Right); Cardiac pacemaker placement; knee arthroscopy (Left); Hernia repair; Vascular surgery (Left, 09/21/2024); and endarterectomy (Left, 10/17/2024). PRECAUTIONS Weight Bearing Precautions (if applicable) Mobility Orders Mobility Protocol: General - Mobility Guidelines Extremity Precautions: No Extremity Precautions Other mobility precautions: No other precautions required ROM Restrictions (if applicable) Medical Precautions Yes Medical Precautions: Fall precautions SUBJECTIVE Pt and RN agreeable to PT evaluation. PARTICIPANTS IN CARE Visitors Present No Estimator And Drafter Supervisor (if applicable) PRESENTATION Oxygen Oxygen Therapy: None (Room air) Lines and Tubes Peripheral IV 10/17/24 Right;Posterior Hand (Active) Peripheral IV 10/17/24 Left Forearm (Active) Pre-Session Side lying right, Lines intact RN agreeable to initial evaluation. Post-Session Sitting in chair, Lines intact, Call light in reach, RN notified Patient positioned for comfort/pressure relief with pillow supports and all needs in reach. RN reported patient ad lisa inroom for bathroom use. Bracing (if applicable) HOME LIVING/SET-UP Lives With Alone (with x2 dogs) Home Type Apartment Home Equipment Rollator, shower chair Home Layout One level (0 CHIN) Bathroom Layout Bathroom: Tub/Shower: Tub/Shower combo, Shower chair, Grab bars Bathroom: Toilet: Standard, Grab bars Bathroom: Accessibility: Accessible via walker (rollator) Additional Comments Patient reported that he has a friend that can provide assistance as/if needed at time of d/c. PRIOR LEVEL OF FUNCTION Assist at Home No assist required prior to admission Level of Mobility Ambulatory- household only Mobility [place] Independent gait with device (rollator) History of Falls No Overall ADL Performance Independent (Friend provides assistance for transportation as patient reported not being able to drive) Additional ADL Performance Detail PATIENT/FAMILY GOALS to go home OBJECTIVE PAIN Pt initially denies pain. During ambulation, pt with reports of a little LLE pain, but does not quantify. Pt positioned to comfort at session conclusion. DELIRIUM SCREENING RASS: Alert and calm Confusion Assessment Method-ICU (CAM-ICU/PCAM-ICU) Feature 3: Altered Level of Consciousness: Negative COGNITION Overall Cognitive Status Within Functional Limits Arousal/Alertness Appropriate responses to stimuli Mood/Behavior Alert Orientation Oriented X4 Command Following Single Step Commands: Consistently, 100% of the time Method of Communication Verbal Additional Observations Safety Judgment: Decreased awareness of need for assistance Awareness of Errors: Assistance required to identify errors made Deficit Awareness: Fully aware of deficits Attention Span: Appears intact, Attends with cues to redirect Problem Solving: Assistance required to identify errors made Perseveration: Not present MOTOR EXAMINATION RANGE OF MOTION Right Upper Within Functional Limits Left Upper Within Functional Limits Right Lower Within Functional Limits Left Lower Within Functional Limits MANUAL MUSCLE TESTING Right Upper Within functional limits Left Upper Within functional limits Right Lower Within functional limits Left Lower (Grossly 3+/5 via obseration with mobility; not formally assessed secondary to reported pain) MUSCLE TONE Right Upper WFL Left Upper WFL Right Lower WFL Left Lower WFL SENSORY EXAMINATION Light Touch Sensation Right Upper Intact Left Upper Intact Right Lower Intact Left Lower Mild impairment (Patient reported numbness in rodney) BED MOBILITY Level of [place] Physical/Non- physical Assist Adaptive Equipment Utilized Rolling/ Turning Scooting/ Bridging Modified independence (anteriorly to EOB) Bed rails Supine to Sit Modified [place] (to the right) (HOB flat) Bed rails Sit to Supine Interventions HOB flat to simulate home environment TRANSFERS Level of [place] Physical/Non- physical Assist Adaptive Equipment Utilized Sit to Stand Stand-by assist Supervision, Verbal Cues, Minimal cues Walker, rolling Stand to sit Stand-by assist Supervision, Verbal Cues, Minimal cues Walker, rolling Bed to Chair Toilet Transfer Shower Transfer Interventions Pt completes x1 STS transfer during PT session requiring verbal cueing and visual cueing for safe hand placement on stable surfaces during transitions. AMBULATION Level of [place] Distance Adaptive Equipment Utilized Ambulation Standby assist, Minimal verbal cues 120' Rolling walker Comments Pt educated on benefits/safety of RW use (vs rollator) following surgical procedure. RW fit/adjuted to pt's height. Pt ambulates at least household distances with slow arabella, but otherwisesafe mechanics. Pt demonstrates reciprocal gait pattern. Pt without demonstrated fatigue and without evidence of instability/LOB. VSS after ambulation bout. Pt encouraged to ambulate 3x daily with nursing staff during hospital admission and upon return home to maintain current strength and endurance levels and reduce possible post- op complications. INTERVENTIONS THERAPEUTIC ACTIVITY Treatment Minutes 13 Interventions Therapeutic activity focused on functional task training including bed mobility, transfers, balance activities, and ambulation in order to promote functional strengthening, enhance safety awareness, optimize independence, and maximize endurance in preparation for safe return home. BALANCE Postural Appearance Posture: Forward head, Rounded shoulders Level of [place] Balance Support Interventions Static Sit Independent Right upper extremity support, Left upper extremity support, Feet supported Dynamic Sit Independent No upper extremity support, Feet supported To adjusts socks sitting unsupported Static Stand Standby assist Right upper extremity support, Left upper extremity support (on RW) Dynamic Stand Standby assist Right upper extremity support, Left upper extremity support (on RW) STANDARDIZED ASSESSMENTS Standardized Assessments Standardized Assessments: [facility] 6-Clicks Mobility Assessment [facility] 6-Clicks Mobility Assessment Difficulty patient has turning over in bed (including adjusting bedclothes, sheets, and blankets)?:None Difficulty patient has sitting down on and standing up from a chair with arms (wheelchair, bedside commode, etc.)?: None Difficulty patient has moving from lying on back to sitting on the side of the bed?: None How much help does the patient need moving to and from a bed to a chair (including a wheelchair)?: None How much help does the patient need to walk in hospital room?: A little How much help does the patient need climbing 3-5 steps with a railing?: A little [facility] 6-Clicks Mobility Assessment Total : 22 ASSESSMENT Currently pt is not requiring physical assistance to complete bed mobility, transfers, or community-level ambulation. As such, PT is recommending pt return home with assistance once medically ready. Pt denies mobility concerns with returning home and reports he has a friend to assist intermittentlyupon return home. PT will follow pt peripherally during hospital admission to progress pt mobility and maximize pt strength, endurance, balance, and safety needed to complete all functional mobility with increased independence and reduced risk for falls. PT FINDINGS Impairments (if identified) Pain, Impaired gait dynamics/performance, Decreased strength, Impaired sensation/sensory processing, Impaired functional mobility/transfers, Impaired balance Activity Limitations (if identified) Inability to ambulate community distances, Inability to ambulate independently, Inability to transfer independently, Inability to complete ADLs independently Participation Restrictions (if identified) Self-care, Home management Barriers to Discharge (if identified) Additional Observations Activity Tolerance: Tolerates 10 - 20 min activity with multiple rests Evaluation/Treatment Tolerance: Patient limited by pain Rehab Potential: Good, to achieve stated therapy goals EVAL COMPLEXITY History Profile 1 - 2 personal factors and/or comorbidities Clinical Presentation Stable and/or uncomplicated characteristics Clinical Decision Making Low complexity PT RECOMMENDATIONS Discharge Destination Home with assistance Discharge Equipment Patient owns appropriate equipment Additional Recommendations (if applicable) PLAN Planned PT Interventions Balance training, Gait training, Transfer training, Neuromuscular re-education, Strengthening, Functional Mobility PT Frequency 1 - 3 times per week PT Duration 2 weeks PT GOALS PT GOAL DETAILS Time Frame PT Goal 1: Pt will be independent with discharge recommendations and HEP 2 weeks PT Goal 2: Pt will complete STS transfers with LRAD and mod I 2 weeks PT Goal 3: Pt will ambulate at least 500ft with LRAD and mod I 2 weeks Written by Femi Cole on 10/19/24 at 10:42 AM. * Progress Notes - Kassie Ovalle W - 10/19/2024 9:07 AM EDT Occupational Therapy Evaluation Patient Name: Bev Bobby Today's Date: 10/19/2024 OT Discharge Recommendations: Home with assistance Equipment Recommended: Patient owns appropriate equipment History eBv Bobby is 64 y.o. male admitted 10/17/2024 for work-up of Critical limb ischemia of left lower extremity. Hospital Course 1. Critical limb ischemia of left lower extremity Procedures 10/17/2024 Procedure(s): CREATION, BYPASS, ARTERIAL, FEMORAL TO POPLITEAL Past Medical History Patient has a past medical history of Arthritis and Old myocardial infarction. Past Surgical History Patient has a past surgical history that includes Coronary artery bypass graft (N/A, 2019); Carotidendarterectomy (N/A, 2017); Coronary angioplasty (Left); Ankle surgery (Right); Elbow surgery (Right); Cardiac pacemaker placement; knee arthroscopy (Left); Hernia repair; Vascular surgery (Left, 09/21/2024); and endarterectomy (Left, 10/17/2024). Precautions Medical Precautions: Fall precautions Subjective Patient agreeable to OT initial evaluation/session. Participants in Care Family/Caregiver Present: No Estimator And Drafter Supervisor: Not Applicable Presentation Oxygen Therapy: None (Room air) Lines and Tubes: Telemetry, Wound Vac Peripheral IV 10/17/24 Right;Posterior Hand (Active) Peripheral IV 10/17/24 Left Forearm (Active) Pre-Session: Side lying right, Lines intact Pre-Session Comments: RN agreeable to initial evaluation. Post-Session: Sitting in chair, Lines intact, Call light in reach, RN notified Post-Session Comments: Patient positioned for comfort/pressure relief with pillow supports and all needs in reach. RN reported patient ad lisa in room for bathroom use. Home Living/Set-Up Lives With: Alone (with x2 dogs) Home Type: Apartment Home Adaptive Equipment: Rollator, shower chair Home Layout: One level (0 CHIN) Bathroom: Tub/Shower: Tub/Shower combo, Shower chair, Grab bars Bathroom: Toilet: Standard, Grab bars Bathroom: Accessibility: Accessible via walker (rollator) Home Living Comments: Patient reported that he has a friend that can provide assistance as/if needed at time of d/c. Prior Level of Function Receives Help From: No assist required prior to admission Level of Mobility: Ambulatory- household only Mobility [place]: Independent gait with device (rollator) History of Falls: No ADL Performance: Independent (Friend provides assistance for transportation as patient reported notbeing able to drive) Patient/Family Goals Patient would like to return home. Objective Pain Patient reported no pain at rest and increased pain in left LE with mobility. No formal rating provided. RN aware. Patient positioned for comfort/pressure relief with pillow supports and all needs inreach. Delirium Screening RASS: Alert and calm Confusion Assessment Method-ICU (CAM-ICU/PCAM-ICU) Feature 3: Altered Level of Consciousness: Negative Cognition Overall Cognitive Status: Within Functional Limits Arousal/Alertness: Appropriate responses to stimuli Mood/Behavior: Alert Orientation Level: Oriented X4 Single Step Commands: Consistently, 100% of the time Multi-Step Commands: Consistently, 100% of the time Method of Communication: Verbal Safety Judgment: Decreased awareness of need for assistance Awareness of Errors: Assistance required to identify errors made Deficit Awareness: Fully aware of deficits Attention Span: Appears intact, Attends with cues to redirect Problem Solving: Assistance required to identify errors made Perseveration: Not present Vision - Assessment Baseline Vision: Glasses reading Patient Visual Report: Patient reported no concerns regarding vision at this time. Right Upper Extremity Examination RUE Assessment: Within Functional Limits Manual Muscle Testing - RUE: Within functional limits Light Touch: Right Upper Extremity: Intact Left Upper Extremity Examination LUE Assessment: Within Functional Limits Manual Muscle Testing - LUE: Within functional limits Light Touch: Left Upper Extremity: Intact Right Lower Extremity Examination RLE Assessment: Within Functional Limits Manual Muscle Testing - RLE: Within functional limits Light Touch: Right Lower Extremity: Intact Left Lower Extremity Examination LLE Assessment: Within Functional Limits Manual Muscle Testing - LLE: (Grossly 3+/5 via obseration with mobility; not formally assessed secondary to reported pain) Light Touch: Left Lower Extremity: Mild impairment (Patient reported numbness in rodney) Perception/Coordination Perception Initiation: Appears intact Motor Planning: Appears intact Coordination Movements are Fluid and Coordinated: Yes Fine Motor Coordination Examination Left Hand, Manipulation of Objects: Normal performance Right Hand, Manipulation of Objects: Normal performance Bed Mobility Bed Mobility Exam: Scooting/Bridging Level of [place]: Modified independence (anteriorly to EOB) Assistive Device: Bed rails Bed Mobility Exam: Supine to Sit Level of [place]: Modified [place] (to the right) Physical/Nonphysical Assist: (HOB flat) Assistive Device: Bed rails Transfers Transfer Exam: Sit to stand Level of [place]: Stand-by assist Physical/Nonphysical Assist: Supervision, Verbal Cues, Minimal cues Assistive Device: Walker, rolling Transfer Exam: Stand to Sit Level of [place]: Stand-by assist Physical/Nonphysical Assist: Supervision, Verbal Cues, Minimal cues Assistive Device: Walker, rolling Functional Mobility Device: Rolling walker Assistance: Standby assist, Minimal verbal cues Distance : 120' Balance Postural Appearance Posture: Forward head, Rounded shoulders Static Sitting Balance Static Sitting-Balance Support: Right upper extremity support, Left upper extremity support, Feet supported Static Sitting-Level of Assistance: Independent Dynamic Sitting Balance Dynamic Sitting-Balance Support: No upper extremity support, Feet supported Level of Assistance: Independent Static Standing Balance Static Standing-Balance Support: Right upper extremity support, Left upper extremity support (on RW) Static Standing-Level of Assistance: Standby assist Dynamic Standing Balance Dynamic Standing-Balance Support: Right upper extremity support, Left upper extremity support (on RW) Self-Care Interventions Self Care/Home Management (ADLs) Time Entry: 8 Self_Care Interventions: In addition to OT initial evaluation (15 minutes), OT facilitated patient engagement in sequential task training emphasizing functional transitions required for increased performance in higher level BADLs/IADLs. Refer to the above sections for patient performance and levelsof assistance required for aspects of mobility completed on this date. Of note, increased time required for: appropriate room set-up via environmental modifications to optimize patient safety and accessibility to all areas of treatment spaces, skilled management of medical lines/tubes, vital monitoring, task modification/grading activity to provide functional challenge and promote success , provision of pacing/rest breaks, BADL retraining, patient education, and staff education (RN/Tech/TEAM in regards to patient safety/vitals/mobility during session). Patient Education: To optimize patient safety while inpatient and at time of discharge, OT providedpatient education regarding: role of OT within POC, progression of therapy, discharge recommendations, precautions, BADL retraining, work simplification, energy conservation, adaptive techniques, adaptive equipment, fall prevention, home management, bathroom safety, showering safety, and community safety/accessibility . Of note, the patient verbalized understanding. Patient, however, would continue to benefit from additional education to promote increased carryover of provided information. Refer to below sections for additional self-care interventions completed during session. Feeding Feeding Level of Assistance: Setup, Independent Feeding Where Assessed: Chair Level Feeding Interventions: Therapist provided set-up assist for tray table in reach. Patient IND with container management and bringing drink to mouth. Grooming Grooming Level of Assistance: SBA Grooming Interventions: Anticipated level of performance per clinical judgement in standing position. Bathing UE Bathing Level of Assistance: Minimum assistance LE Bathing Level of Assistance: Minimum assistance Bathing Interventions: Anticipated level of assistance/performance per clinical judgement. OT provided patient education regarding bathroom safety including benefits of continued use of pre-owned shower chair, adaptive techniques, fall prevention, general bathing/showering tips, and energy conservation. OT recommended to follow showering instructions provided by medical TEAM at time of d/c. Patient verbalized understanding of provided information. Patient reported that they will have necessary assistance as/if needed with bathing/showering at time of d/c. UE Dressing UE Dressing Level of Assistance: Setup, SBA UE Dressing Where Assessed: Edge of bed UE Dressing Interventions: OT provided set-up/SBA to adrián additional gown over back like robe. Lower Extremity Dressing Sock Level of Assistance: (SBA) LE Dressing Where Assessed: Edge of bed LE Dressing Interventions: Patient adjusted bilateral socks utilizing figure- four positioning with SBA in unsupported sitting position. Toileting Toileting Level of Assistance: SBA Where Assessed: (Simulated) Toileting Interventions: OT engaged patient in partial toileting routine in which bedside commode or standard toilet transfers were simulated during aspects of mobility. Patient required SBA to complete functional sit < > stand and SBA to engage in navigation of household distances (120') with RW. Of note, increased time required for presented task secondary to slow pace of task completion and appropriate set-up lines/equipment to optimize patient safety and success. Patient is currently ad lisa in room per RN and reported no concerns regarding toileting at this time. Standardized Assessments [facility] 6-Click Daily Activities Help from Other: Don/Doff Regular Lower Body Clothings: None Help From Other: Bathing: Little Help From Other: Toileting: None Help From Other: Don/Doff Upper Body Clothings: None Help From Other: Grooming: None Help From Other: Eating Meals: None [facility] 6 Click - Daily Activities Score: 23/24 [facility] Scoring Interpretation: Scores greater than 20.5 suggest ability to perform daily self-cares independently and may indicate a high suitability for a home/self-care discharge. Assessment Patient tolerated today's initial evaluation/session well with rest breaks as needed and stable vitals. On this date, the patient required grossly SBA for aspects of mobility with increased time and utilization of RW. Varied levels of assistance required/anticipated for presented self-cares; refer to self-care section for additional details. Patient presented with impaired occupational performances within completing BADL/IADL safely, balance, activity tolerance, strength, and self-limiting factors including pain and fatigue impacting their current level of performance and ability to engage inoccupations with full independence. Despite these impairments, patient is appropriate to return home with assistance as OT anticipates that the patient will progress well while inpatient. Patient reported having necessary assistance available as/if needed at time of d/c. While inpatient, patient would continue to benefit from skilled OT services to promote increased independence within desired occupations, return to prior level of function, decrease caregiver stress, reduce risk of falls/potential readmission, and to promote a safe discharge when medically appropriate. OT Findings: Impaired ADL performance, Impaired IADL performance, Decreased endurance/ventilation/gas exchange, Impaired functional mobility, Impaired balance Evaluation/Treatment Tolerance: Patient limited by fatigue, Patient limited by pain Rehab Potential: Good, to achieve stated therapy goals Demonstrates Need for Referral to Another Service: Social work Eval Complexity Occupational Profile: Expanded review of medical/therapy records and additional review of physical,cognitive, or psychosocial history Performance Deficits: Activities of daily living (ADLs), Instrumental activities of daily living (IADLs), Leisure, Body functions, Body structures, Habits, Routines, Roles, Personal, Physical Clinical Decision Making: Moderate Overall Eval complexity: Moderate OT Recommendations Discharge Destination: Home with assistance Discharge Equipment: Patient owns appropriate equipment Plan Continue with established OT plan of care 1-3/wk to progress towards OT POC goals. Planned OT Interventions ADL retraining, IADL retraining, Balance training, Transfer training, Functional mobility, Caregiver education OT Frequency 1 - 3 times per week OT Duration 2 weeks Goals OT GOAL DETAILS Time Frame OT Goal 1: Patient/Caregiver will be independent in bilateral upper extremity home exercise programto promote increased activity tolerance required for engagement in higher level self-cares/mobility. 2 weeks OT Goal 2: Patient will complete 2-step grooming routine in standing position with modified independence (AE as needed). 2 weeks OT Goal 3: Patient will complete total body dressing with modified independence (AE as needed). 2 weeks OT Goal 4: Patient will complete toileting routine (navigation < > bathroom, transfer < > standard toilet, manage clothing, and complete christina-care hygiene) with modified independence (AE as needed). 2 weeks Written by Kassie Ovalle on 10/19/24 at 10:15 AM. * Care Plan - Kassie Mao RN - 10/19/2024 5:40 AM EDT Problem: Adult Inpatient Plan of Care Goal: Plan of Care Review Outcome: Ongoing, Progressing Flowsheets (Taken 10/17/2024 1424 by Keisha Waller, RN) Plan of Care Reviewed With: patient Goal: Patient-Specific Goal (Individualized) Outcome: Ongoing, Progressing Goal: Absence of Hospital-Acquired Illness or Injury Outcome: Ongoing, Progressing Intervention: Identify and Manage Fall Risk Flowsheets (Taken 10/18/20242029) Safety Promotion/Fall Prevention: clutter-free environment maintained fall prevention program maintained Goal: Optimal Comfort and Wellbeing Outcome: Ongoing, Progressing Goal: Readiness for Transition of Care Outcome: Ongoing, Progressing Problem: Fall Injury Risk Goal: Absence of Fall and Fall-Related Injury Outcome: Ongoing, Progressing Intervention: Identify and Manage Contributors Flowsheets (Taken 10/17/20242107 by Jourdan Grimes II, CHRISTIAN) Medication Review/Management: medications reviewed Problem: Skin Injury Risk Increased Goal: Skin Health and Integrity Outcome: Ongoing, Progressing Problem: Surgery Nonspecified Goal: Absence of Bleeding Outcome: Ongoing, Progressing Goal: Effective Bowel Elimination Outcome: Ongoing, Progressing Goal: Fluid and Electrolyte Balance Outcome: Ongoing, Progressing Goal: Blood Glucose Level Within Target Range Outcome: Ongoing, Progressing Goal: Absence of Infection Signs and Symptoms Outcome: Ongoing, Progressing Goal: Anesthesia/Sedation Recovery Outcome: Ongoing, Progressing Goal: Optimal Pain Control and Function Outcome: Ongoing, Progressing Goal: Nausea and Vomiting Relief Outcome: Ongoing, Progressing Goal: Effective Urinary Elimination Outcome: Ongoing, Progressing Goal: Effective Oxygenation and Ventilation Outcome: Ongoing, Progressing * Progress Notes - Mariia Macedo - 10/18/2024 11:19 AM EDT Case Management Adult Initial Progress Note Bev Bobby 64 y.o. male CSN: [id number] Admission: 10/17/2024 6:21 AM Primary Problem: Critical limb ischemia of left lower extremity Counter Tender reviewed chart and spoke with patient to complete this Initial Case Management Assessment. PCP: Asad Victor MD (Inactive) - Dr. Palomo Preferred pharmacy is [facility] Emergency Contact: Extended Emergency Contact Information Primary Emergency Contact: Patti Hill Relation: Sister Estimator And Drafter Supervisor needed? No Insurance: Primary Visit Coverage Payer Plan Sponsor Code Group Number Group Name [facility] REPLACEMENT [id number] Primary Visit Coverage Subscriber Subscriber ID Subscriber Name Subscriber N Subscriber Address [id number] BEV BOBBY [id number] [place] [address] Secondary Visit Coverage Payer Plan Sponsor Code Group Number Group Name [facility] Secondary Visit Coverage Subscriber Subscriber ID Subscriber Name Subscriber N Subscriber Address [id number] BEV BOBBY [id number] [place] [address] Patient information: Primary Caregiver: Self Daily Living Activities: Functional Status: Independent Living Arrangements: Alone Type of Residence: Private residence, Single Level [address] [place] [address] Current DME: Equipment Currently Used at Home: walker, rollator Income Information: Income Source: Retired Income/Expense Information: Income meets expenses Current Resources Utilized: Food [place] Housing Circumstances-Z Codes: Housing Circumstances (select all that apply): Low Income (101-300% Federal Poverty Guidlines) - Z596 Patient Referred to: TBD Anticipated Discharge Date: TBD Patient's Discharge Goal: Patient/Family Anticipates Transition to: home Assistance Available at Discharge: Availability of Care Givers (#Hours): No assistance available Discharge Transport: Transportation Anticipated: medical transport Follow Up Transport: Transportation Needed to Follow up Appoinments: Medical Transport Home Health / Home Infusion / Outpatient Dialysis Services: None. Living Will/Advance Directive/Power of Dinkey Locomotive Operator /Guardian: Denied. Additional Comments: Patient is not medically ready for discharge. SW will continue to follow. Mariia Macedo BIODIESEL PRODUCTION ASSOCIATE * Care Plan - Emilia Alonso RN - 10/18/2024 8:00 AM EDT Problem: Adult Inpatient Plan of Care Goal: Plan of Care Review Outcome: Ongoing, Progressing Goal: Patient-Specific Goal (Individualized) Outcome: Ongoing, Progressing Goal: Absence of Hospital-Acquired Illness or Injury Outcome: Ongoing, Progressing Goal: Optimal Comfort and Wellbeing Outcome: Ongoing, Progressing Goal: Readiness for Transition of Care Outcome: Ongoing, Progressing Problem: Fall Injury Risk Goal: Absence of Fall and Fall-Related Injury Outcome: Ongoing, Progressing Problem: Skin Injury Risk Increased Goal: Skin Health and Integrity Outcome: Ongoing, Progressing Problem: Surgery Nonspecified Goal: Absence of Bleeding Outcome: Ongoing, Progressing Goal: Effective Bowel Elimination Outcome: Ongoing, Progressing Goal: Fluid and Electrolyte Balance Outcome: Ongoing, Progressing Goal: Blood Glucose Level Within Target Range Outcome: Ongoing, Progressing Goal: Absence of Infection Signs and Symptoms Outcome: Ongoing, Progressing Goal: Anesthesia/Sedation Recovery Outcome: Ongoing, Progressing Goal: Optimal Pain Control and Function Outcome: Ongoing, Progressing Goal: Nausea and Vomiting Relief Outcome: Ongoing, Progressing Goal: Effective Urinary Elimination Outcome: Ongoing, Progressing Goal: Effective Oxygenation and Ventilation Outcome: Ongoing, Progressing * Progress Notes - Bill Arellano - 10/18/2024 7:24 AM EDT Images from the original note were not included. [employer] Department of Surgery Division of Vascular Surgery Surgery Progress Note 10/18/24 Bev Bobby Subjective Subjective: HPI Bev Bobby is a 64 y/o male POD1 after femoral thrombartectomy for critical limb ischemia on the left side. Interval: NAEON. AF. Doing well overnight. Alert and oriented this morning. Vitals show hemodynamicstability. Some HTN in 3-4 hours post-op. Review of Systems: A 14 point review of systems was reviewed and is negative except as mentioned inthe HPI. Objective Objective: Vital signs: Vitals: 10/18/24 0700 BP: Pulse: 76 Resp: 23 Temp: 36.8 ??C (98.3 ??F) SpO2: 94% Physical Exam: Physical Exam Constitutional: Appearance: Normal appearance. HENT: Head: Normocephalic and atraumatic. Mouth/Throat: Mouth: Mucous membranes are moist. Pharynx: Oropharynx is clear. Eyes: Conjunctiva/sclera: Conjunctivae normal. Cardiovascular: Rate and Rhythm: Normal rate and regular rhythm. Comments: Left side showed an AT and PT doppler signal. Pulmonary: Effort: Pulmonary effort is normal. Musculoskeletal: General: Normal range of motion. Cervical back: Neck supple. Comments: Normal motor control of all 4 extremities. All extremities, including left leg, are well perfused and warm. Skin: General: Skin is warm and dry. Neurological: Mental Status: He is alert. Psychiatric: Mood and Affect: Mood normal. Behavior: Behavior normal. Thought Content: Thought content normal. Intake/Output Summary (Last 24 hours) at 10/18/2024 0725 Last data filed at 10/18/2024 0400 Gross per 24 hour Intake 2959.42 ml Output 1900 ml Net 1059.42 ml Lines/Drains/Tubes: Patient Lines/Drains/Airways Status Active Airway None Output by Drain (mL) 10/16/24 07 - 10/16/24 1859 10/16/24 1900 - 10/17/24 0659 10/17/24 07 - 10/17/24 1859 10/17/24 1900 - 10/18/24 0659 10/18/24 07 - 10/18/24 0725 Requested LDAs do not have output data documented. Labs in last 18 hours: CBC WBC 16.71 (H) Hb 8.5 (L) Plt 324 Hct 25.7 (L) ANC ?? INR 1.1, PTT ??, Anti-Xa ?? MCV 92 BMP Na 136 Cl 104 BUN 24 (H) Glu 206 (H) K 4.8 Co2 22 Cr 1.17 Ca 8.5 (L) iCa ?? Mg 1.8 (L), Phos 3.7 Lactate ?? LFT AST ?? AlkPhos ?? T Prot ?? ALK ?? Bili ?? Alb ?? D.Bili ?? Lab Trends: H/H Results from last 7 days Lab Units 10/18/24 0209 HEMOGLOBIN g/dL 8.5* HEMATOCRIT % 25.7* INR Results from last 7 days Lab Units 10/18/24 0209 INR 1.1 Cr Results from last 7 days Lab Units 10/18/24 0209 CREATININE mg/dL 1.17 Lactate Results from last 7 days Lab Units 10/17/24 1148 10/17/24 1046 10/17/24 0945 10/17/24 0847 LACTIC ACID, WHOLE B mmol/L 2.3* 1.4 1.3 1.7* Radiographic Interpretation: No relevant imaging to review. Medications reviewed. Vital signs reviewed. Labs reviewed. Assessment/Plan Assessment and Plan: Bev Bobby is 64y/o male POD1 s/p femoral thrombartectomy for critical limb ischemia on the left side. He is doing well overnight,, hemodynamically stable. Hb is 8.5, hematocrit is 25.7. Plan: - Start xarelto - Continue regular diet - Monitor Glucose control. Dispo: Progressive Level Care Bill Arellano Cosigned by Nirmal Cueto MD at 10/18/2024 10:16 AM EDT Associated attestation - Nirmal Cueto MD - 10/18/2024 10:16 AM EDT I saw and evaluated the patient. I discussed the case with the medical student and resident/fellow and agree with the findings and plan as documented. I personally participated in the management of the patient. * Care Plan - Jourdan Grimes II, RN - 10/17/2024 9:10 PM EDT Problem: Adult Inpatient Plan of Care Goal: Plan of Care Review Outcome: Ongoing, Progressing Flowsheets (Taken 10/17/2024 1424 by Keisha Waller RN) Plan of Care Reviewed With: patient Goal: Patient-Specific Goal (Individualized) Outcome: Ongoing, Progressing Flowsheets (Taken 10/17/2024 1900) Patient/Family-Specific Goals (Include Timeframe): pt will get adequate rest during the night Individualized Care Needs: safety Anxieties, Fears or Concerns: none state Goal: Absence of Hospital-Acquired Illness or Injury Outcome: Ongoing, Progressing Intervention: Identify and Manage Fall Risk Flowsheets (Taken 10/17/20242107) Safety Promotion/Fall Prevention: activity supervised assistive device/personal items within reach fall prevention program maintained lighting adjusted clutter-free environment maintained nonskid shoes/slippers when out of bed safety round/check completed room organization consistent Intervention: Prevent Skin Injury Flowsheets Taken 10/17/20242107 Skin Protection: incontinence pads utilized Taken 10/17/20241899 Body Position: supine Intervention: Prevent and Manage VTE (Venous Thromboembolism) Risk Flowsheets (Taken 10/17/2024 1900) VTE Prevention/Management: right lower extremity SCDs (sequential compression devices) on Intervention: Prevent Infection Flowsheets (Taken 10/17/20242107) Infection Prevention: hand hygiene promoted equipment surfaces disinfected rest/sleep promoted Goal: Optimal Comfort and Wellbeing Outcome: Ongoing, Progressing Intervention: Monitor Pain and Promote Comfort Flowsheets (Taken 10/17/20242107) Pain Management Interventions: medication (see MAR) rest Intervention: Provide Person-Centered Care Flowsheets (Taken 10/17/20242107) Trust Relationship/Rapport: care explained Goal: Readiness for Transition of Care Outcome: Ongoing, Progressing Problem: Fall Injury Risk Goal: Absence of Fall and Fall-Related Injury Outcome: Ongoing, Progressing Intervention: Identify and Manage Contributors Flowsheets (Taken 10/17/20242107) Medication Review/Management: medications reviewed Self-Care Promotion: independence encouraged Intervention: Promote Injury-Free Environment Flowsheets (Taken 10/17/20242107) Safety Promotion/Fall Prevention: activity supervised assistive device/personal items within reach fall prevention program maintained lighting adjusted clutter-free environment maintained nonskid shoes/slippers when out of bed safety round/check completed room organization consistent Problem: Skin Injury Risk Increased Goal: Skin Health and Integrity Outcome: Ongoing, Progressing Intervention: Optimize Skin Protection Flowsheets (Taken 10/17/20242107) Activity Management: activity adjusted per tolerance Skin Protection: incontinence pads utilized * Anesthesia PACU Signout - Celestine Andrade DO - 10/17/2024 2:23 PM EDT Images from the original note were not included. Anesthesia PACU Signout Patient location during evaluation: PACU Patient participation: complete - patient participated Level of consciousness: baseline and awake Pain management: adequate (pain score 0-3) Airway patency: natural airway Hydration status: acceptable PONV: none Cardiovascular status: acceptable and hemodynamically stable Respiratory status: acceptable, spontaneous ventilation, unassisted and nonlabored ventilation Discharge Disposition: admit to inpatient unit 10/17/2024 1:30 PM 10/17/2024 1:35 PM 10/17/2024 1:40 PM 10/17/2024 1:45 PM 10/17/2024 2:00 PM 10/17/2024 2:15 PM 10/17/2024 2:20 PM Vitals Systolic 169 165 166 153 154 Diastolic 68 67 67 63 69 Heart Rate 107 101 100 95 93 94 92 Temp 36.9 C 36.9 C 36.8 C 36.8 C 36.7 C 36.7 C Resp 14 15 12 11 14 14 9 Cosigned by Jose Bower MD at 10/19/2024 1:06 PM EDT Associated attestation - Jose Bower MD - 10/19/2024 1:06 PM EDT Agree with above assessment and evaluation from resident/HAT BODY SORTER. * Op Note - Terrell Gautam MD - 10/17/2024 8:52 AM EDT Operative Note Date: 10/17/24 Location: [facility] Name: Bev Bobby, : 1960, Diagnoses: Pre-op Diagnosis Critical limb ischemia of left lower extremity Common femoral artery pseudoaneurysm Post-op Diagnosis Critical limb ischemia of left lower extremity Common femoral artery pseudoaneurysm Procedure(s): Left common/superficial/profunda femoral thromboendarterectomy with bovine patch repair Left external iliac artery/BUSINESS EDUCATION INSTRUCTOR stent Attending Surgeon(s): * Terrell Gautam - Primary Windows Software Developer(s): * Luna Beckett MD - Resident - Assisting * Dandy Baltazar MD - Fellow Savita Villareal DO - Fellow Anesthesia: General ASA: III Blood Administration: Blood Product Administration History None Estimated Blood Loss: 450 mL Drains: [REMOVED] Urethral Catheter Temperature probe 16 Fr. (Removed) Site Assessment Clean;Skin intact 10/18/24 08 CAUTI: Collection Container Standard drainage bag;Collection container below bladder and tubing free of kinks 10/18/24 08 CAUTI: Securement Method Securing device (Describe) 10/18/24 08 CAUTI: Specimen Collection Port Covered with Alcohol Cap Yes 10/18/24799 CAUTI: Urinary Catheter Necessity Yes, meets criteria 10/17/24 190 CAUTI: Urinary Catheter Necessity Reasons Recent surgery contiguous with urinary tract/INSTANT PRINT OPERATOR/colorectal 10/17/24 1900 Output (mL) 50 mL 10/18/24 08 Implants Type Name Action Serial No. VASCUGUARD 8 X 8 - [id number] Implanted STENT ENDOPROSTHESIS VIABAHN 9FR [id number] - [id number] Implanted [id number] Specimen: Specimens ID Source Frozen? 1 Other (specify site) No Description: left common femoral plaque Findings: significant plaque and pseudoaneurysm of the left common femoral artery Indications: Bev Bobby is an 64 y.o. male who is having surgery for Critical limb ischemia of left lower extremity. The patient has a past medical history of peripheral arterial disease on aspirin and anticoagulation. He was access in his left femoral artery in August for cardiac catheterization this was complicated by pseudoaneurysm formation. He previously underwent ultrasound- guided thrombin injection of the aneurysm. He re-presented to the clinic for follow-up and was found to have critical limb ischemia with rest pain. He was offered bypass and presents today for such. Narrative: The patient was taken to the operating room and transferred to the operating room table in supine position. General endotracheal anesthesia was then induced via certified provider. The bilateral groins and the left leg to the ankle were prepped and draped in the usual sterile fashion. A certified time-out was then performed. We began with femoral artery exposure. A longitudinal incision was made in the groin and dissectionwas carried down using Bovie electrocautery to the fascia layers. We then carefully dissected around the pseudoaneurysm sac was found to be enlarged and fibrotic so we extended our incision cephalad and partially divided the inguinal ligament to allow exposure of the common femoral artery beneath the inguinal ligament. The bridging vein was identified and ligated between ties. We then circumferentially dissected around the common femoral artery and placed a vessel loop for retraction. We then carried our dissection caudad until we entered the pseudoaneurysm sac and broke apart all previous thr ombus and this allowed for us to appropriately identify the remainder of the common femoral artery and its bifurcation. We then placed vessel loops for proximal and distal control. We then proceeded with [id number] exposure of the popliteal artery. A medial incision was made above the knee and dissection was carried down to the fascia with the sartorius muscle being retracted medially vessel loop was placed around the popliteal artery for exposure. We then performed a common femoral endarterectomy. Made an arteriotomy with 11 blade and extended this longitudinally alongthe superior facial femoral artery and the profunda artery and found an extensive coral reef plaquewhich was removed. It appeared as if the plaque was occlusive of both the profunda femoris and the superficial femoral artery. We then performed eversion endarterectomy of the external iliac artery. The patient had good black bleeding from both the profunda and the superficial femoral artery. At this time it was felt that the plaque was more extensive than previously thought it was likely contributing to his rest pain and that the patient may be able to avoid bypass graft so we proceeded perform patch angioplasty from the common femoral artery to the bifurcation and onto the bifurcation with bovine patch. Following release of the clamps we identified a small hole on the posterior wall of the common femoral artery proximal. We placed repair sutures occlusion unfortunately resulted in stenosis of the proximal common femoral artery. We then proceeded to accessed the patch with micropuncture needle and wire and under fluoroscopic vision directed a flexible Glidewire into the common iliac artery. We then upsized the sheath to an 8French sheath. A 9mm x 5 cm Viabahn stent was placed into the external iliac/common femoral artery.We then removed the sutures in the posterior wall that resulted in stenosis and balloon dilated thestent with a 9 mm [place]. We closed the arteriotomy with a single Prolene U-stitch. Following completion of air common femoral/superficial femoral/profunda thromboendarterectomy and external iliac to common femoral artery stenting we then palpated the popliteal artery above the knee. There was a bounding pulse and audible triphasic Doppler signal. It was felt that patient's previous rest pain was secondary to extensive nature of corneal plaque resulting in decreased inflow. Thuswe elected not to proceed bypass. Hemostasis was ensured, Surgiflo was placed in the groin incision. We then closed incisions in layers and placed Dermabond over the knee incision. We used a disposable Prevena wound VAC to cover the groin incision. The patient was extubated and taken to recovery room in stable condition. Following completion of the case the patient had palpable dorsalis pedis pulse which was verified with a Doppler. Dr. Gautam was present and scrubbed for all linares and critical portions of the procedure. There were NO signs of surgical site infection (SSI) present at the time of surgery (PATOS). Complications: None; patient tolerated the procedure well. Submitted by: Dandy Baltazar MD - 10/18/2024 I saw and evaluated the patient with the resident/fellow. I discussed the case with the resident/fellow and agree with the findings and plan as documented. 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 (Active) Implants Type Name Action Serial No. VASCUGUARD 8 X 8 - [id number] Implanted STENT ENDOPROSTHESIS VIABAHN 9FR [id number] - [id number] Implanted [id number] Specimen: Specimens ID Source Frozen? 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 Submitted by: Dandy Baltazar MD - 10/17/2024 Cosigned by Terrell Gautam MD at 10/18/2024 8:36 PM EDT Associated attestation - Terrell Gautam MD - 10/18/2024 8:36 PM EDT I saw and evaluated the patient with the resident/fellow. I discussed the case with the resident/fellow and agree with the findings and plan as documented. * H&P - Dandy Baltazar MD - 10/17/2024 6:53 AM EDT Images from the original note were not included. Subjective Chief complaint Here for surgery History Of Present Illness Bev Bobby is a 64 y.o. male presenting with no new complaints for scheduled surgery. He arrived after 6:30 to preop due to transportation issues. 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 He previouslyunderwent thrombin injection. He reports pain in his calves. He presents today for scheduled left lower extremity femoral to litel-yjt-wudi popliteal bypass. Planned likely use PTFE. He reports no new complaints today he does have a small wound on his knee that he reports was scraped from trying toambulate. He has ambulating with a walker currently. Medical/Surgical/Social/Family History I have reviewed and updated the patient history. Travel History Relevant International Travel History: Travel Screening No screening recorded since 10/16/24 0621 Travel History Travel since 09/17/24 No documented travel since 09/17/24 Relevant Domestic Travel History: NA Immunizations Reviewed Allergies Patient has no known allergies. Medications Current Medications[1] Objective Review of Systems 14 point review of systems was obtained and is negative except for as above in HPI. Physical Exam GEN: no apparent distress, well nourished male HENT: atraumatic, normocephalic EYES: no scleral icterus, no visible conjunctival hemorrhage RESP: no respiratory distress, symmetric chest rise CV: appears well perfused, normal rate ABD: non-tender, non-distended, no obvious masses MSK/EXT: no apparent deformities, strength/tone normal : deferred NEURO: alert and oriented, no focal CN deficits PSYCH: appropriate affect, mood congruent, interactive Faintly palpable LLE DP PT pulse Last Recorded Vitals Pulse 95, temperature 36.7 ??C (98 ??F), temperature source Oral, resp. rate 16. Results Review {Vanishing Link Review Results :[id number] I have reviewed the latest lab and imaging results. Assessment & Plan Critical limb ischemia of left lower extremity Proceed with scheduled surgery left lower extremity femoral to [id number] popliteal artery bypass graft. Extensive discussion had with patient regarding risks and benefits of procedure. Informed consent obtained and located in patient's chart. Medically Ready for Discharge:Anticipated in 2-4 Days [1] Current Facility-Administered Medications Medication Dose Route Frequency Provider Last Rate Last Admin ceFAZolin (Ancef) injection 2 g 2 g Intravenous Once Jerry Holcomb MD Povidone-Iodine 5 % swab solution 1 Application 1 Application Nasal Once Jerry Holcomb MD sodium chloride 0.9 % flush 10 mL 10 mL Intravenous q12h Jerry Holcomb MD And sodium chloride 0.9 % flush 10 mL 10 mL Intravenous PRN Jerry Holcomb MD Cosigned by Terrell Gautam MD at 10/18/2024 8:39 PM EDT Associated attestation - Terrell Gautam MD - 10/18/2024 8:39 PM EDT I saw and evaluated the patient with the resident/fellow. I discussed the case with the resident/fellow and agree with the findings and plan as documented. documented in this encounter Plan of Treatment Upcoming Encounters Date Type Department Care Team (Late st Contact Info) Description 11/26/2024 2:00 PM EDT Appointment [facility] [address] [place] [address] 11/26/2024 2:30 PM EDT Appointment [facility] [address] [place] [address] 11/26/2024 3:20 PM EDT Office Visit [facility] [address] [place] [address] Elisabet Schuster PA [address] [facility] [address] [place] [address] 11/29/2024 2:30 PM EDT Office Visit [facility] [address] [place] [address] Oscar Appiah MD [address] [facility] [address] [place] [address] Pending Results Name Type Priority Associated Diagnoses Date /Time Prepare Leukocyte Reduced RBC: 2 Units Blood Bank STAT 10/17/2024 8:06 AM EDT Scheduled Orders Name Type Priority Associated Diagnoses Order Schedule VAS Ankle Brachial Index - Segmental Vascular Ultrasound Routine Critical limb ischemia of left lower extremity Pseudoaneurysm of left femoral artery (CMS/HCC) 1 Occurrences starting 10/19/2024 until 04/22/2026 VAS US Arterial Duplex Lower Extremity Unilateral Left Vascular Ultrasound Routine Critical limb ischemia of left lower extremity Pseudoaneurysm of left femoral artery (CMS/HCC) 1 Occurrences starting 10/19/2024 until 04/22/2026 Scheduled Referrals Name Type Priority Associated Diagnoses Order Schedule Discharge Ambulatory referral to Vascular Surgery Outpatient Referral Routine Critical limb ischemia of left lower extremity Pseudoaneurysm of left femoral artery (CMS/HCC) Expected: 11/19/2024, Expires: 04/22/2026 documented as of this encounter Goals Goal Patient Goal Type Associated Problems Recent Progress Patient-Stated? Author Autogenera louise Goal Care Plan Autogenerated Problem No Ekta Arnett documented as of this encounter Procedures Procedure Name Priority Date/Time Associated Diagnosis Comments POCT GLUCOSE METER UNSOLICITED RESULTS Routine 10/19/2024 11:40 AM EDT PROTHROMBIN TIME(PT) / INR Routine 10/19/2024 8:25 AM EDT CBC W/O DIFFERENTIAL Routine 10/19/2024 8:25 AM EDT PHOSPHORUS, PLASMA Routine 10/19/2024 8: 25 AM EDT MAGNESIUM, PLASMA Routine 10/19/2024 8:2 5 AM EDT BASIC METABOLIC PANEL, PLASMA Routine 10/19/2024 8:25 AM EDT POCT GLUCOSE METER UNSOLICITED RESULTS Routine 10/19/2024 7:35 AM EDT POCT GLUCOSE METER UNSOLICITED RESULTS Routine 10/18/2024 7:22 PM EDT POCT GLUCOSE METER UNSOLICITED RESULTS Routine 10/18/2024 6:07 PM EDT POCT GLUCOSE METER UNSOLICITED RESULTS Routine 10/18/2024 11:56 AM EDT POCT GLUCOSE METER UNSOLICITED RESULTS Routine 10/18/2024 9:24 AM EDT OXYGEN THERAPY Routine 10/18/2024 8:00 AM EDT POCT GLUCOSE METER UNSOLICITED RESULTS Routine 10/18/2024 7:36 AM EDT PROTHROMBIN TIME(PT) / INR Routine 10/18/2024 2:09 AM EDT CBC W/O DIFFERENTIAL Routine 10/18/2024 2:09 AM EDT PHOSPHORUS, PLASMA Routine 10/18/2024 2: 09 AM EDT MAGNESIUM, PLASMA Routine 10/18/2024 2:0 9 AM EDT BASIC METABOLIC PANEL, PLASMA Routine 10/18/2024 2:09 AM EDT POCT GLUCOSE METER UNSOLICITED RESULTS Routine 10/18/2024 2:08 AM EDT POCT GLUCOSE METER UNSOLICITED RESULTS Routine 10/17/2024 10:07 PM EDT POCT GLUCOSE METER UNSOLICITED RESULTS Routine 10/17/2024 8:07 PM EDT OXYGEN THERAPY Routine 10/17/2024 8:00 PM EDT POCT GLUCOSE METER UNSOLICITED RESULTS Routine 10/17/2024 4:01 PM EDT POCT GLUCOSE METER UNSOLICITED RESULTS Routine 10/17/2024 1:25 PM EDT FL LESS THAN 1 HOUR (NON-REPORTABLE) Routine 10/17/2024 1:18 PM EDT OXYGEN THERAPY Routine 10/17/2024 1:08 PM EDT OXYGEN THERAPY Routine 10/17/2024 1:08 PM EDT OXYGEN THERAPY Routine 10/17/2024 1:08 PM EDT POCT ACT UNSOLICITED RESULTS Routine 10/17/2024 12:23 PM EDT BLOOD GAS PANEL, ARTERIAL STAT 10/17/2024 11:48 AM EDT POCT ACT UNSOLICITED RESULTS Routine 10/17/2024 11:41 AM EDT POCT ACT UNSOLICITED RESULTS Routine 10/17/2024 11:11 AM EDT BLOOD GAS PANEL, ARTERIAL STAT 10/17/2024 10:46 AM EDT POCT ACT UNSOLICITED RESULTS Routine 10/17/2024 10:37 AM EDT SURGICAL PATHOLOGY EXAM Routine 10/17/2024 10:27 AM EDT Critical limb ischemia of left lower extremity POCT ACT UNSOLICITED RESULTS Routine 10/17/2024 10:03 AM EDT BLOOD GAS PANEL, ARTERIAL STAT 10/17/2024 9:45 AM EDT BLOOD GAS PANEL, ARTERIAL STAT 10/17/2024 8:47 AM EDT POCT ACT UNSOLICITED RESULTS Routine 10/17/2024 8:46 AM EDT PREPARE RBC STAT 10/17/2024 8:06 AM EDT ND VEIN BYPASS GRAFT,FEM-POP 10/17/2024 7:38 AM EDT Critical limb ischemia of left lower extremity TYPE AND SCREEN Routine 10/17/2024 7:19 AM EDT POCT GLUCOSE METER UNSOLICITED RESULTS Routine 10/17/2024 6:44 AM EDT documented in this encounter Results * (ABNORMAL) POCT glucose meter (10/19/2024 11:40 AM EDT) POCT Glucose 207(H) 74 - 99 mg/dL 10/19/2024 11:42 AM EDT [facility] Comment:Accuracy of a glucos e result obtained from a capillary whole blood specimen relies upon adequate, non-compromised capillary blood flow. If the capillary glucose result is not consistent with the patient's clinical signs and symptoms, glucose testing should be repeated with either an arterial or venous sample on the glucometer or sent to the main labortory for testing. Comment 10/19/2024 11:42 AM EDT [facility] Registered Nurse Float Pool ID KamranJob 10/20/19 11:42 AM EDT [facility] Device ID [id number] 10/19/2024 11:42 AM EDT [facility] Specimen Type POC Capillary 10/19/2024 11:42 AM EDT [facility] Blood Capillary blood specimen / Unknown 10/19/2024 11:40 AM EDT 10/19/2024 11:42 AM EDT Terrell Gautam MD LAB POINT OF CARE TE ST DOCKED DEVICE UNSOLICITED RESULTS Final Result Performing Organization Address City/State/[facility] Co de Phone Number [facility] [address] [place] [address] * (ABNORMAL) Protime-INR (10/19/2024 8:25 AM EDT) Prothrombin Time 17.5(H) 12.0 - 14.3 sec LAB COAGULATION METHOD 10/19/2024 9:25 AM EDT [facility] INR 1.4(H) 0.9 - 1.1 LAB COAGULATION METHOD 10/19/2024 9:25 AM EDT [facility] Blood Venous blood specimen / Unknown Venipuncture / Unknown 10/19/2024 8:25 AM EDT 10/19/2024 8:43 AM EDT Narrative [facility] - 10/19/2024 9:25 AM EDT OPTIMAL INR RANGES FOR PATIENT ON ORAL ANTICOAGULANT THERAPY Prevention of venous thromboembolism INR 2.0 to 3.0 In patients with heart disease: Atrial fibrillation INR 2.0 to 3.0 Valvular heart disease INR 2.0 to 3.0 Tissue heart valves INR 2.0 to 3.0 Mechanical prosthetic valves INR 2.5 to 3.5 Prevention of recurrent NH INR 2.5 to 3.5 us Nirmal Cueto MD LAB BLOOD ORDERABLES Final Result Performing Organization Address City/[facility]/[place] [address] * (ABNORMAL) Phosphorus (10/19/2024 8:25 AM EDT) Phosphorus, Plasma 2.2(L) 2.5 - 4.5 mg/dL 10/19/2024 9:12 AM EDT [facility] Blood Venous blood specimen / Unknown Venipuncture / Unknown 10/19/2024 8:25 AM EDT 10/19/2024 8:43 AM EDT us Nirmal Cueto MD LAB BLOOD ORDERABLES Final Result Performing Organization Address City/[facility]/ZIP Co de Phone Number [facility] [address] [place] [address] * Magnesium (10/19/2024 8:25 AM EDT) Magnesium, Plasma 2.1 1.9 - 2.4 mg/dL 10/19/2024 9:12 AM EDT [facility] Blood Venous blood specimen / Unknown Venipuncture / Unknown 10/19/2024 8:25 AM EDT 10/19/2024 8:43 AM EDT us Nirmal Cueto MD LAB BLOOD ORDERABLES Final Result [facility] [address] [place] [address] * (ABNORMAL) Basic metabolic panel (10/19/2024 8:25 AM EDT) Glucose, Plasma 191(H) 74 - 99 mg/dL 10/19/2024 9:12 AM EDT [facility] BUN, Plasma 18 8 - 23 mg/dL 10/19/2024 9:12 AM EDT [facility] Creatinine, Plasma 0.76 0.70 - 1.20 mg/dL 10/19/2024 9:12 AM EDT [facility] BUN/Creatinine Ratio 24 10/19/2024 9:12 AM EDT [facility] Sodium, Plasma 135(L) 136 - 145 mmol/L 10/19/2024 9:12 AM EDT [facility] Potassium, Plasma 4.1 3.6 - 4.9 mmol/L 10/19/2024 9:12 AM EDT [facility] Chloride, Plasma 104 97 - 107 mmol/L 10/19/2024 9:12 AM EDT [facility] CO2, Plasma 22 22 - 29 mmol/L 10/19/2024 9:12 AM EDT [facility] Anion Gap 9 6 - 16 mmol/L 10/19/2024 9:12 AM EDT [facility] Total Calcium, Plasma 8.4(L) 8.9 - 10.2 mg/dL 10/19/2024 9:12 AM EDT [facility] eGFRcr 99.7 mL/min/1.7 3m*2 10/19/2024 9:12 AM EDT [facility] Comment:Reported eGFRcr in m L/min/1.73m2 is based the CKD-EPI 2020 equation that does not use a race coefficient. Blood Venous blood specimen / Unknown Venipuncture / Unknown 10/19/2024 8:25 AM EDT 10/19/2024 8:43 AM EDT us Nirmal Cueto MD LAB BLOOD ORDERABLES Final Result [facility] [address] [place] [address] * (ABNORMAL) CBC W/O Differential (10/19/2024 8:25 AM EDT) WBC Count 14.10(H) 3.70 - 10.30 10*3/uL LAB HEMATOLOGY METHOD 10/19/2024 8:52 AM EDT [facility] RBC Count 2.61(L) 4.60 - 6.10 10*6/uL LAB HEMATOLOGY METHOD 10/19/2024 8:52 AM EDT [facility] HGB 8.0(L) 13.7 - 17.5 g/dL LAB HEMATOLOGY METHOD 10/19/2024 8:52 AM EDT [facility] HCT 24.3(L) 40.0 - 51.0 % LAB HEMATOLOGY METHOD 10/19/2024 8:52 AM EDT [facility] Platelet Count 318 155 - 369 10*3/uL LAB HEMATOLOGY METHOD 10/19/2024 8:52 AM EDT [facility] MCV 93 79 - 98 fL LAB HEMATOLOGY METHOD 10/19/2024 8:52 AM EDT [facility] MCH 30.7 26.0 - 32.0 pg LAB HEMATOLOGY METHOD 10/19/2024 8:52 AM EDT [facility] MCHC 32.9 30.7 - 35.5 g/dL LAB HEMATOLOGY METHOD 10/19/2024 8:52 AM EDT [facility] RDW 13.4 11.5 - 14.5 % LAB HEMATOLOGY METHOD 10/19/2024 8:52 AM EDT [facility] MPV 9.6 8.8 - 12.5 fL LAB HEMATOLOGY METHOD 10/19/2024 8:52 AM EDT [facility] nRBC 0.0 <=0.0 per 100 WBCs LAB HEMATOLOGY METHOD 10/19/2024 8:52 AM EDT [facility] Blood Venous blood specimen / Unknown Venipuncture / Unknown 10/19/2024 8:25 AM EDT 10/19/2024 8:44 AM EDT Nirmal Cueto MD LAB BLOOD ORDERABLES Final Result [facility] [address] [place] [address] * (ABNORMAL) POCT glucose meter (10/19/2024 7:35 AM EDT) [facility] POCT Glucose 187(H) 74 - 99 mg/dL 10/19/2024 7:37 AM EDT [facility] Comment:Accuracy of [...] to the main labortory for testing. Comment 10/19/2024 7:37 AM EDT [facility] Registered Nurse Float Pool ID Kamran, Job 10/20/19 7:37 AM EDT [facility] Device ID [id number] 10/19/2024 7:37 AM EDT [facility] Specimen Type POC Capillary 10/19/2024 7:37 AM EDT [facility] Blood Capillary blood specimen / Unknown 10/19/2024 7:35 AM EDT 10/19/2024 7:37 AM EDT us Terrell Gautam MD LAB POINT OF CARE TE ST DOCKED DEVICE UNSOLICITED RESULTS Final Result [facility] [address] [place] [address] * (ABNORMAL) POCT glucose meter (10/18/2024 7:22 PM EDT) [facility] POCT Glucose 178(H) 74 - 99 mg/dL 10/18/2024 7:24 PM EDT [facility] Comment:Accuracy of [...] to the main labortory for testing. Comment 10/18/2024 7:24 PM EDT [facility] Registered Nurse Float Pool ID Jovan Mahesh 10/18/2024 7:24 PM EDT [facility] Device ID [id number] 10/18/2024 7:24 PM EDT [facility] Specimen Type POC Capillary 10/18/2024 7:24 PM EDT [facility] Blood Capillary blood specimen / Unknown 10/18/2024 7:22 PM EDT 10/18/2024 7:24 PM EDT us Terrell Gautam MD LAB POINT OF CARE TE ST DOCKED DEVICE UNSOLICITED RESULTS Final Result Performing Organization Address City/[facility]/ZIP Co de Phone Number [facility] [address] [place] [address] * (ABNORMAL) POCT glucose meter (10/18/2024 6:07 PM EDT) POCT Glucose 167(H) 74 - 99 mg/dL 10/18/2024 6:09 PM EDT [facility] Comment:Accuracy of [...] to the main labortory for testing. Comment 10/18/2024 6:09 PM EDT [facility] Registered Nurse Float Pool ID David Parks 10/18/2024 6:09 PM EDT [facility] Device ID [id number] 10/18/2024 6:09 PM EDT [facility] Specimen Type POC Capillary 10/18/2024 6:09 PM EDT [facility] Blood Capillary blood specimen / Unknown 10/18/2024 6:07 PM EDT 10/18/2024 6:09 PM EDT us Terrell Gautam MD LAB POINT OF CARE TE ST DOCKED DEVICE UNSOLICITED RESULTS Final Result [facility] [address] [place] [address] * (ABNORMAL) POCT glucose meter (10/18/2024 11:56 AM EDT) POCT Glucose 233(H) 74 - 99 mg/dL 10/21/2024 7:42 AM EDT [facility] Comment:Accuracy of [...] to the main labortory for testing. Comment 10/21/2024 7:42 AM EDT [facility] Registered Nurse Float Pool ID Venessa Marcano 10/21/2024 7:42 AM EDT [facility] Device ID [id number] 10/21/2024 7:42 AM EDT [facility] Specimen Type POC Capillary 10/21/2024 7:42 AM EDT [facility] Blood Capillary blood specimen / Unknown 10/18/2024 11:56 AM EDT 10/21/2024 7:42 AM EDT Terrell Gautam MD LAB POINT OF CARE TE ST DOCKED DEVICE UNSOLICITED RESULTS Final Result Performing Organization Address City/State/[facility] Co de Phone Number [facility] [address] [place] [address] * (ABNORMAL) POCT glucose meter (10/18/2024 9:24 AM EDT) [facility] POCT Glucose 322(H) 74 - 99 mg/dL 10/21/2024 7:42 AM EDT [facility] Comment:Accuracy of a glucos e result obtained from a capillary whole blood specimen relies upon adequate, non-compromised capillary blood flow. If the capillary glucose result is not consistent with the patient's clinical signs and symptoms, glucose testing should be repeated with either an arterial or venous sample on the glucometer or sent to the main labortory for testing. Comment 10/21/2024 7:42 AM EDT [facility] Registered Nurse Float Pool ID Emilia Alonso 7:42 AM EDT [facility] Device ID [id number] 10/21/2024 7:42 AM EDT [facility] Specimen Type POC Venous 10/21/2024 7:42 AM EDT [facility] Blood Venous blood specimen / Unknown 10/18/2024 9:24 AM EDT 10/21/2024 7:42 AM EDT us Terrell Gautam MD LAB POINT OF CARE TE ST DOCKED DEVICE UNSOLICITED RESULTS Final Result [facility] [address] [place] [address] * (ABNORMAL) POCT glucose meter (10/18/2024 7:36 AM EDT) POCT Glucose 215(H) 74 - 99 mg/dL 10/18/2024 7:38 AM EDT [facility] Comment:Accuracy of a glucos e result obtained from a capillary whole blood specimen relies upon adequate, non-compromised capillary blood flow. If the capillary glucose result is not consistent with the patient's clinical signs and symptoms, glucose testing should be repeated with either an arterial or venous sample on the glucometer or sent to the main labortory for testing. Comment 10/18/2024 7:38 AM EDT [facility] Registered Nurse Float Pool ID Kizzy Godfrey 025 7:38 AM EDT [facility] Device ID [id number] 10/18/2024 7:38 AM EDT [facility] Specimen Type POC Capillary 10/18/2024 7:38 AM EDT [facility] Blood Capillary blood specimen / Unknown 10/18/2024 7:36 AM EDT 10/18/2024 7:38 AM EDT us Terrell Gautam MD LAB POINT OF CARE TE ST DOCKED DEVICE UNSOLICITED RESULTS Final Result Performing Organization Address City/[facility]/ZIP Co de Phone Number [facility] [address] [place] [address] * (ABNORMAL) CBC (10/18/2024 2:09 AM EDT) WBC Count 16.71(H) 3.70 - 10.30 10*3/uL LAB HEMATOLOGY METHOD 10/18/2024 2:33 AM EDT [facility] RBC Count 2.78(L) 4.60 - 6.10 10*6/uL LAB HEMATOLOGY METHOD 10/18/2024 2:33 AM EDT [facility] HGB 8.5(L) 13.7 - 17.5 g/dL LAB HEMATOLOGY METHOD 10/18/2024 2:33 AM EDT [facility] HCT 25.7(L) 40.0 - 51.0 % LAB HEMATOLOGY METHOD 10/18/2024 2:33 AM EDT [facility] Platelet Count 324 155 - 369 10*3/uL LAB HEMATOLOGY METHOD 10/18/2024 2:33 AM EDT [facility] MCV 92 79 - 98 fL LAB HEMATOLOGY METHOD 10/18/2024 2:33 AM EDT [facility] MCH 30.6 26.0 - 32.0 pg LAB HEMATOLOGY METHOD 10/18/2024 2:33 AM EDT [facility] MCHC 33.1 30.7 - 35.5 g/dL LAB HEMATOLOGY METHOD 10/18/2024 2:33 AM EDT [facility] RDW 13.3 11.5 - 14.5 % LAB HEMATOLOGY METHOD 10/18/2024 2:33 AM EDT [facility] MPV 9.4 8.8 - 12.5 fL LAB HEMATOLOGY METHOD 10/18/2024 2:33 AM EDT [facility] nRBC 0.0 <=0.0 per 100 WBCs LAB HEMATOLOGY METHOD 10/18/2024 2:33 AM EDT [facility] Blood Venous blood specimen / Unknown Venipuncture / Unknown 10/18/2024 2:09 AM EDT 10/18/2024 2:25 AM EDT Nirmal Cueto MD LAB BLOOD ORDERABLES Final Result [facility] [address] [place] [address] * (ABNORMAL) Basic metabolic panel (10/18/2024 2:09 AM EDT) Glucose, Plasma 206(H) 74 - 99 mg/dL 10/18/2024 2:53 AM EDT [facility] BUN, Plasma 24(H) 8 - 23 mg/dL 10/18/2024 2:53 AM EDT [facility] Creatinine, Plasma 1.17 0.70 - 1.20 mg/dL 10/18/2024 2:53 AM EDT [facility] BUN/Creatinine Ratio 21 10/18/2024 2:53 AM EDT [facility] Sodium, Plasma 136 136 - 145 mmol/L 10/18/2024 2:53 AM EDT [facility] Potassium, Plasma 4.8 3.6 - 4.9 mmol/L 10/18/2024 2:53 AM EDT [facility] Chloride, Plasma 104 97 - 107 mmol/L 10/18/2024 2:53 AM EDT [facility] CO2, Plasma 22 22 - 29 mmol/L 10/18/2024 2:53 AM EDT [facility] Anion Gap 10 6 - 16 mmol/L 10/18/2024 2:53 AM EDT [facility] Total Calcium, Plasma 8.5(L) 8.9 - 10.2 mg/dL 10/18/2024 2:53 AM EDT [facility] eGFRcr 69.2 mL/min/1.7 3m*2 10/18/2024 2:53 AM EDT [facility] Comment:Reported eGFRcr in m L/min/1.73m2 is based the CKD-EPI 2020 equation that does not use a race coefficient. Blood Venous blood specimen / Unknown Venipuncture / Unknown 10/18/2024 2:09 AM EDT 10/18/2024 2:25 AM EDT Nirmal Cueto MD LAB BLOOD ORDERABLES Final Result [facility] [address] [place] [address] * (ABNORMAL) Magnesium (10/18/2024 2:09 AM EDT) Magnesium, Plasma 1.8(L) 1.9 - 2.4 mg/dL 10/18/2024 2:53 AM EDT [facility] Blood Venous blood specimen / Unknown Venipuncture / Unknown 10/18/2024 2:09 AM EDT 10/18/2024 2:25 AM EDT us Nirmal Cueto MD LAB BLOOD ORDERABLES Final Result [facility] [address] [place] [address] * Phosphorus (10/18/2024 2:09 AM EDT) Phosphorus, Plasma 3.7 2.5 - 4.5 mg/dL 10/18/2024 2:53 AM EDT [facility] Blood Venous blood specimen / Unknown Venipuncture / Unknown 10/18/2024 2:09 AM EDT 10/18/2024 2:25 AM EDT Nirmal Cueto MD LAB BLOOD ORDERABLES Final Result Performing Organization Address [facility] Co de Phone Number [facility] [address] [place] [address] * (ABNORMAL) Protime-INR (10/18/2024 2:09 AM EDT) Prothrombin Time 14.5(H) 12.0 - 14.3 sec LAB COAGULATION METHOD 10/18/2024 2:53 AM EDT [facility] INR 1.1 0.9 - 1.1 LAB COAGULATION METHOD 10/18/2024 2:53 AM EDT [facility] Blood Venous blood specimen / Unknown Venipuncture / Unknown 10/18/2024 2:09 AM EDT 10/18/2024 2:25 AM EDT Narrative [facility] - 10/18/2024 2:53 AM EDT OPTIMAL INR RANGES FOR PATIENT ON ORAL ANTICOAGULANT THERAPY Prevention of venous thromboembolism INR 2.0 to 3.0 In patients with heart disease: Atrial fibrillation INR 2.0 to 3.0 Valvular heart disease INR 2.0 to 3.0 Tissue heart valves INR 2.0 to 3.0 Mechanical prosthetic valves INR 2.5 to 3.5 Prevention of recurrent NH INR 2.5 to 3.5 us Nirmal Cueto MD LAB BLOOD ORDERABLES Final Result Performing Organization Address [facility]/ZIP Co de Phone Number [facility] [address] [place] [address] * (ABNORMAL) POCT glucose meter (10/18/2024 2:08 AM EDT) [facility] POCT Glucose 202(H) 74 - 99 mg/dL 10/18/2024 2:10 AM EDT HEALTHCARE LAB Comment:Accuracy of a glucos e result obtained from a capillary whole blood specimen relies upon adequate, non-compromised capillary blood flow. If the capillary glucose result is not consistent with the patient's clinical signs and symptoms, glucose testing should be repeated with either an arterial or venous sample on the glucometer or sent to the main labortory for testing. Comment 10/18/2024 2:10 AM EDT HEALTHCARE LAB Registered Nurse Float Pool ID Jourdan Grimes II 10/18/2024 2:10 AM EDT [facility] Device ID [id number] 10/18/2024 2:10 AM EDT HEALTHCARE LAB Specimen Type POC Capillary 10/18/2024 2:10 AM EDT [facility] Blood Capillary blood specimen / Unknown 10/18/2024 2:08 AM EDT 10/18/2024 2:10 AM EDT us Terrell Gautam MD LAB POINT OF CARE TE ST DOCKED DEVICE UNSOLICITED RESULTS Final Result Performing Organization Address City/State/[facility] Co de Phone Number HEALTHCARE LAB [address] [place] [address] * (ABNORMAL) POCT glucose meter (10/17/2024 10:07 PM EDT) [facility] POCT Glucose 300(H) 74 - 99 mg/dL 10/17/2024 10:10 PM EDT [facility] Comment:Accuracy of [...] to the main labortory for testing. Comment 10/17/2024 10:10 PM EDT [facility] Registered Nurse Float Pool ID Jourdan Grimes II 10/17/2024 10:10 PM EDT [facility] Device ID [id number] 10/17/2024 10:10 PM EDT HEALTHCARE LAB Specimen Type POC Capillary 10/17/2024 10:10 PM EDT [facility]ALTHCARE LAB Blood Capillary blood specimen / Unknown 10/17/2024 10:07 PM EDT 10/17/2024 10:10 PM EDT Terrell Gautam MD LAB POINT OF CARE TE ST DOCKED DEVICE UNSOLICITED RESULTS Final Result Performing Organization Address City/[facility]/ZIP Co de Phone Number HEALTHCARE LAB [address] [place] [address] * (ABNORMAL) POCT glucose meter (10/17/2024 8:07 PM EDT) POCT Glucose 391(H) 74 - 99 mg/dL 10/17/2024 8:10 PM EDT [facility] Comment:Accuracy of [...] to the main labortory for testing. Comment 10/17/2024 8:10 PM EDT HEALTHCARE LAB Registered Nurse Float Pool ID Jourdan Grimes II 10/17/2024 8:10 PM EDT HEALTHCARE LAB Device ID [id number] 10/17/2024 8:10 PM EDT HEALTHCARE LAB Specimen Type POC Capillary 10/17/2024 8:10 PM EDT [facility]ALTH[facility]ARE LAB Blood Capillary blood specimen / Unknown 10/17/2024 8:07 PM EDT 10/17/2024 8:10 PM EDT Terrell Gautam MD LAB POINT OF CARE TE ST DOCKED DEVICE UNSOLICITED RESULTS Final Result [facility] [address] [place] [address] * (ABNORMAL) POCT glucose meter (10/17/2024 4:01 PM EDT) POCT Glucose 249(H) 74 - 99 mg/dL 10/17/2024 4:03 PM EDT [facility] Comment:Accuracy of [...] to the main labortory for testing. Comment 10/17/2024 4:03 PM EDT [facility]ALTHCARE LAB Registered Nurse Float Pool ID Keisha Waller 10/17/2024 4:03 PM EDT HEALTHCARE LAB Device ID [id number] 10/17/2024 4:03 PM EDT [facility]ALTH[facility]ARE LAB Specimen Type POC Capillary 10/17/2024 4:03 PM EDT [facility] LAB Blood Capillary blood specimen / Unknown 10/17/2024 4:01 PM EDT 10/17/2024 4:03 PM EDT us Terrell Gautam MD LAB POINT OF CARE TE ST DOCKED DEVICE UNSOLICITED RESULTS Final Result Performing Organization Address City/State/[facility] Co de Phone Number HEALTHCARE LAB [address] [place] [address] * (ABNORMAL) POCT glucose meter (10/17/2024 1:25 PM EDT) [facility] POCT Glucose 225(H) 74 - 99 mg/dL 10/17/2024 1:27 PM EDT [facility]ALTH[facility]ARE LAB Comment:Accuracy of a glucos e result obtained from a capillary whole blood specimen relies upon adequate, non-compromised capillary blood flow. If the capillary glucose result is not consistent with the patient's clinical signs and symptoms, glucose testing should be repeated with either an arterial or venous sample on the glucometer or sent to the main labortory for testing. Comment 10/17/2024 1:27 PM EDT HEALTHCARE LAB Registered Nurse Float Pool ID Kizzy Godfrey 025 1:27 PM EDT HEALTHCARE LAB Device ID [id number] 10/17/2024 1:27 PM EDT HEALTHCARE LAB Specimen Type POC Capillary 10/17/2024 1:27 PM EDT [facility]ARE LAB Blood Capillary blood specimen / Unknown 10/17/2024 1:25 PM EDT 10/17/2024 1:27 PM EDT us Terrell Gautam MD LAB POINT OF CARE TE ST DOCKED DEVICE UNSOLICITED RESULTS Final Result Performing Organization Address City/[facility] Co de Phone Number HEALTHCARE LAB [address] [place] [address] * FL Less than 1 Hour Intraoperative (10/17/2024 1:18 PM EDT) Narrative IMAGING - 10/17/2024 2:05 PM EDT Images were obtained for surgical purposes. See Terrell Gautam's surgical note in the patient's chart for the findings. us Terrell Gautam MD IMG FLUOROSCOPY PROCEDURES Fi nal Result Performing Organization Address [facility] Co de Phone Number IMAGING * POCT ACT (10/17/2024 12:23 PM EDT) ACT+ (HIGH RANGE) 211 68 - 600 Seconds 10/29/2024 7:28 AM EDT HEALTHCARE LAB Registered Nurse Float Pool ID Donna Mcmillan 10/29/2024 7:28 AM EDT HEALTHCARE LAB ACT Device ID [id number] 10/29/2024 7:28 AM EDT [facility] Comment 10/29/2024 7:28 AM EDT [facility] Comment: ACT performed by staff at point of care. Results are reported immediately to the physician or primary caregiver. The activated clotting time is performed on patients with diverse clinical characteristics and treatment histories. Therefore, expected values are variable and results must be interpreted in the context of each individual patient. Blood Venous blood specimen / Unknown 10/17/2024 12:23 PM EDT 10/29/2024 7:28 AM EDT us eTrrell Gautam MD LAB POINT OF CARE TE ST DOCKED DEVICE UNSOLICITED RESULTS Final Result Performing Organization Address [facility] Co de Phone Number HEALTHCARE LAB [address] LAB [address] [place] [address] * (ABNORMAL) Blood gas, arterial (10/17/2024 11:48 AM EDT) pH, Arterial 7.34 7.31 - 7.42 LAB HEMATOLOGY METHOD 10/17/2024 11:54 AM EDT [facility] pCO2, Arterial 41 32 - 45 mmHg LAB HEMATOLOGY METHOD 10/17/2024 11:54 AM EDT [facility] pO2, Arterial 202 >80 mmHg LAB HEMATOLOGY METHOD 10/17/2024 11:54 AM EDT [facility] SO2, Measured, Arterial 100(H) 94 - 98 % LAB HEMATOLOGY METHOD 10/17/2024 11:54 AM EDT [facility] Base Excess, Arterial -3.2(L) -2.0 - 3.0 mmol/L LAB HEMATOLOGY METHOD 10/17/2024 11:54 AM EDT [facility] Bicarbonate, Calculated, Arterial 22 22 - 26 mmol/L LAB HEMATOLOGY METHOD 10/17/2024 11:54 AM EDT [facility] Hematocrit, Whole Blood 28.6(L) 40.0 - 51.0 % LAB HEMATOLOGY METHOD 10/17/2024 11:54 AM EDT [facility] Sodium, Whole Blood 137 136 - 145 mmol/L LAB HEMATOLOGY METHOD 10/17/2024 11:54 AM EDT [facility] Potassium, Whole Blood 4.5 3.6 - 4.9 mmol/L LAB HEMATOLOGY METHOD 10/17/2024 11:54 AM EDT [facility] Chloride, Whole Blood 112(H) 97 - 107 mmol/L LAB HEMATOLOGY METHOD 10/17/2024 11:54 AM EDT [facility] Glucose, Whole Blood 201(H) 74 - 99 mg/dL LAB HEMATOLOGY METHOD 10/17/2024 11:54 AM EDT [facility] Ionized Calcium, Whole Blood 4.8 4.6 - 5.1 mg/dL LAB HEMATOLOGY METHOD 10/17/2024 11:54 AM EDT [facility] Lactate, Arterial, Whole Blood 2.3(H) 0.5 - 1.6 mmol/L LAB HEMATOLOGY METHOD 10/17/2024 11:54 AM EDT [facility] Blood Arterial blood specimen / Unknown Arterial Puncture / Unknown 10/17/2024 11:48 AM EDT 10/17/2024 11:53 AM EDT us Jenna Lopez CRNA LAB BLOOD ORDERABLES Final Re sult [facility] [address] [place] [address] * POCT ACT (10/17/2024 11:41 AM EDT) ACT+ (HIGH RANGE) 175 68 - 600 Seconds 10/29/2024 7:28 AM EDT HEALTHCARE LAB Registered Nurse Float Pool ID Oneyda Alicea 10/29/2024 7:28 AM EDT HEALTHCARE LAB ACT Device ID [id number] 10/29/2024 7:28 AM EDT HEALTHCARE LAB Comment 10/29/2024 7:28 AM EDT [facility] Comment: ACT performed by staff at point of care. Results are reported immediately to the physician or primary caregiver. The activated clotting time is performed on patients with diverse clinical characteristics and treatment histories. Therefore, expected values are variable and results must be interpreted in the context of each individual patient. Blood Venous blood specimen / Unknown 10/17/2024 11:41 AM EDT 10/29/2024 7:28 AM EDT us Terrell Gautam MD LAB POINT OF CARE TE ST DOCKED DEVICE UNSOLICITED RESULTS Final Result Performing Organization Address City/[facility]/ZIP Co de Phone Number HEALTHCARE LAB [address] LAB [address] [place] [address] * POCT ACT (10/17/2024 11:11 AM EDT) ACT+ (HIGH RANGE) 252 68 - 600 Seconds 10/29/2024 7:28 AM EDT HEALTHCARE LAB Registered Nurse Float Pool ID Donna Mcmillan 10/29/2024 7:28 AM EDT HEALTHCARE LAB ACT Device ID [id number] 10/29/2024 7:28 AM EDT HEALTHCARE LAB Comment 10/29/2024 7:28 AM EDT [facility] Comment: ACT performed by staff at point of care. Results are reported immediately to the physician or primary caregiver. The activated clotting time is performed on patients with diverse clinical characteristics and treatment histories. Therefore, expected values are variable and results must be interpreted in the context of each individual patient. Blood Venous blood specimen / Unknown 10/17/2024 11:11 AM EDT 10/29/2024 7:28 AM EDT us Terrell Gautam MD LAB POINT OF CARE TE ST DOCKED DEVICE UNSOLICITED RESULTS Final Result [facility] [address] LAB [address] [place] [address] * (ABNORMAL) Blood gas, arterial (10/17/2024 10:46 AM EDT) pH, Arterial 7.35 7.31 - 7.42 LAB HEMATOLOGY METHOD 10/17/2024 10:56 AM EDT [facility] pCO2, Arterial 42 32 - 45 mmHg LAB HEMATOLOGY METHOD 10/17/2024 10:56 AM EDT [facility] pO2, Arterial 161 >80 mmHg LAB HEMATOLOGY METHOD 10/17/2024 10:56 AM EDT [facility] SO2, Measured, Arterial 100(H) 94 - 98 % LAB HEMATOLOGY METHOD 10/17/2024 10:56 AM EDT [facility] Base Excess, Arterial -2.2(L) -2.0 - 3.0 mmol/L LAB HEMATOLOGY METHOD 10/17/2024 10:56 AM EDT [facility] Bicarbonate, Calculated, Arterial 23 22 - 26 mmol/L LAB HEMATOLOGY METHOD 10/17/2024 10:56 AM EDT [facility] Hematocrit, Whole Blood 29.9(L) 40.0 - 51.0 % LAB HEMATOLOGY METHOD 10/17/2024 10:56 AM EDT [facility] Sodium, Whole Blood 138 136 - 145 mmol/L LAB HEMATOLOGY METHOD 10/17/2024 10:56 AM EDT [facility] Potassium, Whole Blood 4.0 3.6 - 4.9 mmol/L LAB HEMATOLOGY METHOD 10/17/2024 10:56 AM EDT [facility] Chloride, Whole Blood 110(H) 97 - 107 mmol/L LAB HEMATOLOGY METHOD 10/17/2024 10:56 AM EDT [facility] Glucose, Whole Blood 174(H) 74 - 99 mg/dL LAB HEMATOLOGY METHOD 10/17/2024 10:56 AM EDT [facility] Ionized Calcium, Whole Blood 5.1 4.6 - 5.1 mg/dL LAB HEMATOLOGY METHOD 10/17/2024 10:56 AM EDT [facility] Lactate, Arterial, Whole Blood 1.4 0.5 - 1.6 mmol/L LAB HEMATOLOGY METHOD 10/17/2024 10:56 AM EDT [facility] Blood Arterial blood specimen / Unknown Arterial Puncture / Unknown 10/17/2024 10:46 AM EDT 10/17/2024 10:54 AM EDT us Jenna Lopez CRNA LAB BLOOD ORDERABLES Final Re sult [facility] [address] [place] [address] * POCT ACT (10/17/2024 10:37 AM EDT) ACT+ (HIGH RANGE) 206 68 - 600 Seconds 10/29/2024 7:28 AM EDT [facility] Registered Nurse Float Pool ID Donna Mcmillan 10/29/2024 7:28 AM EDT [facility] ACT Device ID [id number] 10/29/2024 7:28 AM EDT [facility] Comment 10/29/2024 7:28 AM EDT [facility] Comment: ACT performed by staff at point of care. Results are reported immediately to the physician or primary caregiver. The activated clotting time is performed on patients with diverse clinical characteristics and treatment histories. Therefore, expected values are variable and results must be interpreted in the context of each individual patient. Blood Venous blood specimen / Unknown 10/17/2024 10:37 AM EDT 10/29/2024 7:28 AM EDT us Terrell Gautam MD LAB POINT OF CARE TE ST DOCKED DEVICE UNSOLICITED RESULTS Final Result [facility] [address] LAB [address] [place] [address] * Surgical Pathology Exam (10/17/2024 10:27 AM EDT) Case Report Surgical Pathology Case: [id number] Authorizing Provider: eTrrell Gautam MD Collected: 10/17/2024 1027 Ordering Location: [facility] Received: 10/17/2024 1325 Pathologist: Haydee Osborne MD Specimen: Other (specify site), left common femoral plaque 10/21/2024 10:16 AM EDT [facility] Final Diagnosis A. LEFT COMMON FEMORAL PLAQUE, EXCISION: - CALCIFIED PLAQUE 10/21/2024 10:16 AM EDT [facility] at 1016 EDT Clinical Information Critical limb ischemia of left lower extremity [I70.222] 10/21/2024 10:16 AM EDT [facility] Gross Description A. LEFT COMMON FEMORAL PLAQUE Received in formalin labeled l eft common femoral plaque , is one aggregate of red-gabriel hard portions of plaque measuring 3.7 x 2.5 x 0.9 cm. The specimen is serially sectioned and insurance follow up representative sections are submitted in cassette A1. Cold Time: <1m Kenia Aceves 10/21/2024 10:16 AM EDT [facility] Note: A resident was involved in the service. I attest I examined the relevant preparations for the specimens and confirmed the diagnosis or interpretation. 10/21/2024 10:16 AM EDT [facility] Tissue Topography unknown / Unknown 10/17/2024 10:27 AM EDT 10/17/2024 1:25 PM EDT Comment:Pre-op diagnosis: Critical limb ischemia of left lower extremity [I70.222] us Terrell Gautam MD LAB PATHOLOGY ORDERABLES Gwen grimaldo Result [facility] [address] [place] [address] * POCT ACT (10/17/2024 10:03 AM EDT) ACT+ (HIGH RANGE) 244 68 - 600 Seconds 10/29/2024 7:28 AM EDT HEALTHCARE LAB Registered Nurse Float Pool ID Donna Mcmillan 10/29/2024 7:28 AM EDT HEALTHCARE LAB ACT Device ID [id number] 10/29/2024 7:28 AM EDT HEALTHCARE LAB Comment 10/29/2024 7:28 AM EDT [facility] Comment: ACT performed by staff at point of care. Results are reported immediately to the physician or primary caregiver. The activated clotting time is performed on patients with diverse clinical characteristics and treatment histories. Therefore, expected values are variable and results must be interpreted in the context of each individual patient. Blood Venous blood specimen / Unknown 10/17/2024 10:03 AM EDT 10/29/2024 7:28 AM EDT us Terrell Gautam MD LAB POINT OF CARE TE ST DOCKED DEVICE UNSOLICITED RESULTS Final Result [facility] [address] LAB [address] [place] [address] * (ABNORMAL) Blood gas, arterial (10/17/2024 9:45 AM EDT) pH, Arterial 7.37 7.31 - 7.42 LAB HEMATOLOGY METHOD 10/17/2024 9:55 AM EDT [facility] pCO2, Arterial 43 32 - 45 mmHg LAB HEMATOLOGY METHOD 10/17/2024 9:55 AM EDT [facility] pO2, Arterial 177 >80 mmHg LAB HEMATOLOGY METHOD 10/17/2024 9:55 AM EDT [facility] SO2, Measured, Arterial 100(H) 94 - 98 % LAB HEMATOLOGY METHOD 10/17/2024 9:55 AM EDT [facility] Base Excess, Arterial -0.5 -2.0 - 3.0 mmol/L LAB HEMATOLOGY METHOD 10/17/2024 9:55 AM EDT [facility] Bicarbonate, Calculated, Arterial 25 22 - 26 mmol/L LAB HEMATOLOGY METHOD 10/17/2024 9:55 AM EDT [facility] Hematocrit, Whole Blood 30.0(L) 40.0 - 51.0 % LAB HEMATOLOGY METHOD 10/17/2024 9:55 AM EDT [facility] Sodium, Whole Blood 137 136 - 145 mmol/L LAB HEMATOLOGY METHOD 10/17/2024 9:55 AM EDT [facility] Potassium, Whole Blood 4.3 3.6 - 4.9 mmol/L LAB HEMATOLOGY METHOD 10/17/2024 9:55 AM EDT [facility] Chloride, Whole Blood 108(H) 97 - 107 mmol/L LAB HEMATOLOGY METHOD 10/17/2024 9:55 AM EDT [facility] Glucose, Whole Blood 191(H) 74 - 99 mg/dL LAB HEMATOLOGY METHOD 10/17/2024 9:55 AM EDT [facility] Ionized Calcium, Whole Blood 5.0 4.6 - 5.1 mg/dL LAB HEMATOLOGY METHOD 10/17/2024 9:55 AM EDT [facility] Lactate, Arterial, Whole Blood 1.3 0.5 - 1.6 mmol/L LAB HEMATOLOGY METHOD 10/17/2024 9:55 AM EDT [facility] Blood Arterial blood specimen / Unknown Arterial Line / Unknown 10/17/2024 9:45 AM EDT 10/17/2024 9:52 AM EDT us Jenna Lopez [facility] LAB BLOOD ORDERABLES Final Re sult [facility] [address] [place] [address] * (ABNORMAL) Blood gas, arterial (10/17/2024 8:47 AM EDT) pH, Arterial 7.37 7.31 - 7.42 LAB HEMATOLOGY METHOD 10/17/2024 8:59 AM EDT [facility] pCO2, Arterial 43 32 - 45 mmHg LAB HEMATOLOGY METHOD 10/17/2024 8:59 AM EDT [facility] pO2, Arterial 205 >80 mmHg LAB HEMATOLOGY METHOD 10/17/2024 8:59 AM EDT [facility] SO2, Measured, Arterial 100(H) 94 - 98 % LAB HEMATOLOGY METHOD 10/17/2024 8:59 AM EDT [facility] Base Excess, Arterial -0.3 -2.0 - 3.0 mmol/L LAB HEMATOLOGY METHOD 10/17/2024 8:59 AM EDT [facility] Bicarbonate, Calculated, Arterial 25 22 - 26 mmol/L LAB HEMATOLOGY METHOD 10/17/2024 8:59 AM EDT [facility] Hematocrit, Whole Blood 31.3(L) 40.0 - 51.0 % LAB HEMATOLOGY METHOD 10/17/2024 8:59 AM EDT [facility] Sodium, Whole Blood 138 136 - 145 mmol/L LAB HEMATOLOGY METHOD 10/17/2024 8:59 AM EDT [facility] Potassium, Whole Blood 4.0 3.6 - 4.9 mmol/L LAB HEMATOLOGY METHOD 10/17/2024 8:59 AM EDT [facility] Chloride, Whole Blood 108(H) 97 - 107 mmol/L LAB HEMATOLOGY METHOD 10/17/2024 8:59 AM EDT [facility] Glucose, Whole Blood 162(H) 74 - 99 mg/dL LAB HEMATOLOGY METHOD 10/17/2024 8:59 AM EDT [facility] Ionized Calcium, Whole Blood 5.2(H) 4.6 - 5.1 mg/dL LAB HEMATOLOGY METHOD 10/17/2024 8:59 AM EDT [facility] Lactate, Arterial, Whole Blood 1.7(H) 0.5 - 1.6 mmol/L LAB HEMATOLOGY METHOD 10/17/2024 8:59 AM EDT [facility] Blood Arterial blood specimen / Unknown Arterial Puncture / Unknown 10/17/2024 8:47 AM EDT 10/17/2024 8:58 AM EDT us Jenna Lopez [facility] LAB BLOOD ORDERABLES Final Re sult [facility] [address] [place] [address] * POCT ACT (10/17/2024 8:46 AM EDT) ACT+ (HIGH RANGE) 101 68 - 600 Seconds 10/29/2024 7:28 AM EDT HEALTHCARE LAB Registered Nurse Float Pool ID Donna Mcmillan 10/29/2024 7:28 AM EDT HEALTHCARE LAB ACT Device ID [id number] 10/29/2024 7:28 AM EDT HEALTHCARE LAB Comment 10/29/2024 7:28 AM EDT [facility] Comment: ACT performed by staff at point of care. Results are reported immediately to the physician or primary caregiver. The activated clotting time is performed on patients with diverse clinical characteristics and treatment histories. Therefore, expected values are variable and results must be interpreted in the context of each individual patient. Blood Venous blood specimen / Unknown 10/17/2024 8:46 AM EDT 10/29/2024 7:28 AM EDT us Terrell Gautam MD LAB POINT OF CARE TE ST DOCKED DEVICE UNSOLICITED RESULTS Final Result Performing Organization Address [facility] de Phone Number HEALTHCARE LAB [address] LAB [address] [place] [address] * Type and Screen (10/17/2024 7:19 AM EDT) Pathologist [facility] ABO/Rh A Negative 10/17/2024 7:04 AM EDT BLOOD BANK Antibody Screen Negative 10/17/2024 7:04 AM EDT BLOOD BANK Specimen Expiration 10/20/2024 23:59 10/17/2024 7:04 AM EDT BLOOD BANK Blood Venous blood specimen / Unknown Venipuncture / Unknown 10/17/2024 7:19 AM EDT 10/17/2024 7:28 AM EDT us Maria Fernanda Mccallum MD LAB BLOOD BANK TEST ORDERAB LES Final Result Performing Organization Address [facility] de Phone Number BLOOD BANK [address] [place] [address], * (ABNORMAL) POCT glucose meter (10/17/2024 6:44 AM EDT) POCT Glucose 178(H) 74 - 99 mg/dL 10/17/2024 6:49 AM EDT [facility] Comment:Accuracy of a glucos e result obtained from a capillary whole blood specimen relies upon adequate, non-compromised capillary blood flow. If the capillary glucose result is not consistent with the patient's clinical signs and symptoms, glucose testing should be repeated with either an arterial or venous sample on the glucometer or sent to the main labortory for testing. Comment 10/17/2024 6:49 AM EDT [facility] Registered Nurse Float Pool ID Hunter Burroughs 10/18/19 6:49 AM EDT HEALTHCARE LAB Device ID [id number] 10/17/2024 6:49 AM EDT HEALTHCARE LAB Specimen Type POC Capillary 10/17/2024 6:49 AM EDT HEALTHCARE LAB Blood Capillary blood specimen / Unknown 10/17/2024 6:44 AM EDT 10/17/2024 6:49 AM EDT Terrell Gautam MD LAB POINT OF CARE TE ST DOCKED DEVICE UNSOLICITED RESULTS Final Result [facility] [address] [place] [address] documented in this encounter Visit Diagnoses Diagnosis Critical limb ischemia of left lower extremity- Primary Critical limb ischemia of left lower extremity 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 documented in this encounter Admitting Diagnoses Diagnosis Critical limb ischemia of left lower extremity documented in this encounter Administered Medications Inactive Administered Medications - up to 3 most recent administrations Medication Order MAR Action Action Date Dose Rate Site acetaminophen (Tylenol) tablet 1,000 mg 1,000 mg, Oral, Once as needed, 1 dose, Starting on Yadira 10/17/24 at 1225, Until Yadira 10/17/24 at 1414, Routine, Recovery (Phase I only), pain score of >1 out of 10 Given 10/17/2024 2:14 PM EDT 1,000 mg acetaminophen (Tylenol) tablet 1,000 mg 1,000 mg, Oral, Every 8 hours, First dose on Yadira 10/17/24 at 1400, Until Discontinued, Routine, Recovery(Phase II-Outpatient)/On Unit(Inpatient) Given 10/17/2024 9:03 PM EDT 1,000 mg clopidogrel (Plavix) tablet 75 mg 75 mg, Oral, Daily, First dose on Yadira 10/17/24 at 1400, Until Discontinued, Routine, Recovery(Phase II-Outpatient)/On Unit(Inpatient) Given 10/19/2024 9:52 AM EDT 75 mg Given 10/18/2024 8:09 AM EDT 75 mg Given 10/17/2024 2:14 PM EDT 75 mg docusate sodium (Colace) capsule 100 mg 100 mg, Oral, 2 times daily, First dose on Yadira 10/17/24 at 1400, Until Discontinued, Routine, Recovery(Phase II-Outpatient)/On Unit(Inpatient) Given 10/19/2024 9:51 AM EDT 100 mg Given 10/18/2024 8:02 PM EDT 100 mg Given 10/18/2024 8:01 AM EDT 100 mg enoxaparin (Lovenox) syringe 40 mg 40 mg, Subcutaneous, Daily, 1 dose, First dose on Mon10/18/24 at 1000, Routine Given 10/18/2024 10:03 AM EDT 40 mg Left Lower Abdomen hydrALAZINE (Apresoline) injection 10 mg 10 mg, Intravenous, Every 6 hours PRN, Starting on 10/19/24 at 0418, Until 10/19/24 at 1439, Routine, high blood pressure, For SBP > 180 and HR < 70 insulin glargine-yfgn 100 UNIT/ML injection 28 Units 28 Units, Subcutaneous, Nightly, First dose on Mon10/17/24 at 2215, Until Discontinued, Routine Given 10/18/2024 8:03 PM EDT 28 Units Left Upper Arm (Back ) Given 10/17/2024 10:29 PM EDT 28 Units L eft Upper Arm (Back) insulin lispro (Admelog) 100 units/mL injection - Correction - Resistant Dose 0-10 Units, Subcutaneous, 3 times daily with meals, First dose on Mon10/18/24 at 1230, Until Discontinued, Routine Given 10/19/2024 8:30 AM EDT 2 Units Left Upper Arm (Back ) Given 10/18/2024 12:04 PM EDT 4 Units R ight Upper Arm (Back) insulin lispro (Admelog) 100 units/mL injection - Correction - Standard Dose 0-5 Units, Subcutaneous, 3 times daily with meals, First dose on Mon10/17/24 at 1400, Until Discontinued, Routine, Recovery(Phase II-Outpatient)/On Unit(Inpatient) Given 10/18/2024 7:52 AM EDT 2 Units Left Upper Abdomen Given 10/17/2024 4:10 PM EDT 2 Units Le ft Upper Arm (Back) insulin lispro (Admelog) injection - Correction - Nighttime Dose 0-3 Units, Subcutaneous, 2 times nightly (2100 & 0300), First dose on Mon10/17/24 at 2100, Until Discontinued, Routine, Recovery(Phase II-Outpatient)/On Unit(Inpatient) Given 10/17/2024 8:13 PM EDT 3 Units Right Upper Arm (Back) insulin lispro (Admelog) injection - Correction - Nighttime Dose 0-3 Units, Subcutaneous, 2 times nightly (2100 & 0300), First dose on Mon10/18/24 at 2100, Until Discontinued, Routine Insulin Lispro (Admelog, HumaLOG) 100 UNIT/ML injection 3 Units 3 Units, Subcutaneous, Once, 1 dose, On Mon10/18/24 at 1030, Routine Given 10/18/2024 10:03 AM EDT 3 Units Left Upper Arm (Back) labetalol (Normodyne,Trandate) injection 20 mg 20 mg, Intravenous, Every 4 hours PRN, Starting on 10/19/24 at 0418, Until 10/19/24 at 1439, Routine, high blood pressure, For SBP > 180 and HR > 70 lidocaine (Lidoderm) 5 % patch 1 patch 1 patch, Apply externally, Daily, First dose on 10/19/24 at 0045, Until Discontinued, Administer over 12 Hours, Routine Medication Applied 10/19/2024 1:05 AM EDT 1 patch Left Anterior Thigh lisinopril tablet 5 mg 5 mg, Oral, Daily, First dose on Mon10/18/24 at 1230, Until Discontinued, Routine Given 10/19/2024 9:52 AM EDT 5 mg Given 10/18/2024 12:04 PM EDT 5 mg magnesium sulfate IVPB 2 g 2 g, Intravenous, Once, 1 dose, On Mon10/18/24 at 0945, Routine New Bag 10/18/2024 10:08 AM EDT 2 g 2 5 mL/hr metoprolol tartrate (Lopressor) tablet 100 mg 100 mg, Oral, 2 times daily, First dose on Yadira 10/17/24 at 1400, Until Discontinued, Routine, Recovery(Phase II-Outpatient)/On Unit(Inpatient) Given 10/19/2024 9:51 AM EDT 100 mg Given 10/18/2024 8:02 PM EDT 100 mg Given 10/18/2024 8:09 AM EDT 100 mg ondansetron (Zofran) 4 MG/5ML solution 4 mg 4 mg, Oral, Every 6 hours PRN, Starting on Yadira 10/17/24 at 1308, Until 10/19/24 at 1439, Routine, Recovery(Phase II-Outpatient)/On Unit(Inpatient), nausea, vomiting ondansetron (Zofran) injection 4 mg 4 mg, Intravenous, Every 6 hours PRN, Starting on Yadira 10/17/24 at 1308, Until 10/19/24 at 1439, Routine, Recovery(Phase II-Outpatient)/On Unit(Inpatient), vomiting, nausea ondansetron ODT (Zofran-ODT) disintegrating tablet 4 mg 4 mg, Oral, Every 6 hours PRN, Starting on Yadira 10/17/24 at 1308, Until 10/19/24 at 1439, Routine, Recovery(Phase II-Outpatient)/On Unit(Inpatient), nausea, vomiting oxyCODONE (Roxicodone) immediate release tablet 5 mg 5 mg, Oral, Every 4 hours PRN, Starting on Yadira 10/17/24 at 1308, Until 10/19/24 at 1439, Routine, Recovery(Phase II-Outpatient)/On Unit(Inpatient), moderate pain, severe pain Given 10/19/2024 2:39 AM EDT 5 mg Given 10/18/2024 11:09 AM EDT 5 mg Given 10/18/2024 4:44 AM EDT 5 mg Povidone-Iodine 5 % swab solution 1 Application Nasal, Once, 1 dose, On Yadira 10/17/24 at 0745, Routine Given 10/17/2024 7:07 AM EDT 1 Application pravastatin (Pravachol) tablet 40 mg 40 mg, Oral, Nightly, First dose on Yadira 10/17/24 at 2100, Until Discontinued, Routine, Recovery(Phase II-Outpatient)/On Unit(Inpatient) Given 10/18/2024 8:02 PM EDT 40 mg Given 10/17/2024 8:13 PM EDT 40 mg rivaroxaban (Xarelto) tablet 20 mg 20 mg, Oral, Daily with dinner, First dose on Mon10/18/24 at 1800, Until Discontinued, Routine Given 10/18/2024 5:44 PM EDT 20 mg rOPINIRole (Requip) tablet 2 mg 2 mg, Oral, 2 times daily, First dose on Yadira 10/17/24 at 2100, Until Discontinued, Routine Given 10/19/2024 9:52 AM EDT 2 mg Given 10/18/2024 8:02 PM EDT 2 mg Given 10/18/2024 8:01 AM EDT 2 mg sodium chloride 0.9 % flush 10 mL 10 mL, Intravenous, Every 12 hours, First dose on Yadira 10/17/24 at 0745, Until Discontinued, Routine, Holding - Preprocedure Given 10/17/2024 7:45 PM EDT 10 mL Given 10/17/2024 7:07 AM EDT 10 mL tamsulosin (Flomax) 24 hr capsule 0.4 mg 0.4 mg, Oral, Every evening, First dose on Yadira 10/17/24 at 1700, Until Discontinued, Routine, Recovery(Phase II-Outpatient)/On Unit(Inpatient) Given 10/18/2024 5:44 PM EDT 0.4 mg Given 10/17/2024 4:56 PM EDT 0.4 mg documented in this encounter Active and Recently Administered Medications Times are shown in EDT. Scheduled Medication Order 10/17/2024 10/18/2024 10/19/2024 acetaminophen (Tylenol) tablet 1,000 mg 1,000 mg, Oral, Every 8 hours, First dose on Yadira 10/17/24 at 1400, Until Discontinued, Routine, Recovery(Phase II-Outpatient)/On Unit(Inpatient) 141 (Not Given - Provider: Keisha Waller RN - Reason: Order changed)2102 (Given - Provider: Jourdan Grimes II, RN) 0612 (Not Given - Provider: Rose De La Torre RN - Reason: Patient/family refused)1434 (Not Given - Provider: Jere Farrell RN - Reason: Patient/family refused)211 (Not Given - Provider: Kassie Mao RN - Reason: Patient/family refused) 0534 (Not Given - Provider: Kassie Mao, CHRISTIAN - Reason: Patient/family refused - Comment: states gives him heart burn)1400 (Canceled Entry - Provider: Automatic Discharge Provider - Comment: Automatically canceled at discontinue of medication order) ceFAZolin (Ancef) injection 2 g (COMPLETED) 2 g, Intravenous, Once, 1 dose, On Mon10/17/24 at 0745, Routine, Anesthesia Intraprocedure 0842 (Given - Provider: Maria Fernanda Mccallum MD)1234 (Given - Provider: Jenna Lopez CRNA) clopidogrel (Plavix) tablet 75 mg 75 mg, Oral, Daily, First dose on Mon10/17/24 at 1400, Until Discontinued, Routine, Recovery(Phase II-Outpatient)/On Unit(Inpatient) 1414 (Given - Provider: Keisha Waller RN) 0809 (Given - Provider: Emilia Alonso, CHRISTIAN) 0952 (Given - Provider: Keyla Chow) docusate sodium (Colace) capsule 100 mg 100 mg, Oral, 2 times daily, First dose on Mon10/17/24 at 1400, Until Discontinued, Routine, Recovery(Phase II-Outpatient)/On Unit(Inpatient) 1414 (Given - Provider: Keisha Waller, CHRISTIAN)2012 (Given - Provider: Jourdan Grimes II, CHRISTIAN) 0801 (Given - Provider: Emilia Alonso, CHRISTIAN)2001 (Given - Provider: Kassie Mao, CHRISTIAN) 0951 (Given - Provider: Keyla Chow) enoxaparin (Lovenox) syringe 40 mg (COMPLETED) 40 mg, Subcutaneous, Daily, 1 dose, First dose on Mon10/18/24 at 1000, Routine 1003 (Given - Provider: Emilia Alonso, CHRISTIAN) insulin glargine-yfgn 100 UNIT/ML injection 28 Units 28 Units, Subcutaneous, Nightly, First dose on Mon10/17/24 at 2215, Until Discontinued, Routine 2229 (Given - Provider: Jourdan Grimes II, CHRISTIAN) 2002 (Given - Provider: Kassie Mao, CHRISTIAN) insulin lispro (Admelog) 100 units/mL injection - Correction - Resistant Dose 0-10 Units, Subcutaneous, 3 times daily with meals, First dose on Mon10/18/24 at 1230, Until Discontinued, Routine 1204 (Given - Provider: Venessa Marcano, CHRISTIAN)1813 (Not Given - Provider: Keyla Chow - Reason: NPO - Comment: patient not ate meal and request to wait.)1814 (Canceled Entry - Provider: Keyla Chow) 0830 (Given - Provider: Keyla Chow)1230 (Canceled Entry - Provider: Automatic Discharge Provider - Comment: Automatically canceled at discontinue of medication order) insulin lispro (Admelog) 100 units/mL injection - Correction - Standard Dose (CANCELED) 0-5 Units, Subcutaneous, 3 times daily with meals, First dose on Mon10/17/24 at 1400, Until Discontinued, Routine, Recovery(Phase II-Outpatient)/On Unit(Inpatient) 1414 (Not Given - Provider: Keisha Waller RN - Reason: NPO)1610 (Given - Provider: Keisha Waller, CHRISTIAN - Comment: The patient is post op and was eating his dinner at this time)1730 (Canceled Entry - Provider: Keisha Waller RN) 0752 (Given - Provider: Emilia Alonso RN) insulin lispro (Admelog) injection - Correction - Nighttime Dose (CANCELED) 0-3 Units, Subcutaneous, 2 times nightly (2099 & 0300), First dose on Mon10/17/24 at 2100, Until Discontinued, Routine, Recovery(Phase II-Outpatient)/On Unit(Inpatient) 2012 (Given - Provider: Jourdan Grimes II, RN) 020 (Not Given - Provider: Jourdan Grimes II, RN - Reason: Order parameters not met) insulin lispro (Admelog) injection - Correction - Nighttime Dose 0-3 Units, Subcutaneous, 2 times nightly (2099 & 0300), First dose on Mon10/18/24 at 2100, Until Discontinued, Routine 2007 (Not Given - Provider: Kassie Mao RN - Reason: Order parameters not met) 227 (Not Given - Provider: Kassie Mao RN - Reason: Order parameters not met) Insulin Lispro (Admelog, HumaLOG) 100 UNIT/ML injection 3 Units (COMPLETED) 3 Units, Subcutaneous, Once, 1 dose, On Mon10/18/24 at 1030, Routine 1003 (Given - Provider: Emilia Alonso RN) lidocaine (Lidoderm) 5 % patch 1 patch 1 patch, Apply externally, Daily, First dose on Mon10/19/24 at 0045, Until Discontinued, Administer over 12 Hours, Routine 0105 (Medication Applied - Provider: Kassie Mao, CHRISTIAN)1239 (Due: Medication Removed - Provider: Automatic Discharge Provider - Comment: Time automatically adjusted from order being discontinued) lisinopril tablet 5 mg 5 mg, Oral, Daily, First dose on Mon10/18/24 at 1230, Until Discontinued, Routine 1204 (Given - Provider: Venessa Marcano, RN) 0952 (Given - Provider: Keyla Chow) magnesium sulfate IVPB 2 g (COMPLETED) 2 g, Intravenous, Once, 1 dose, On Mon10/18/24 at 0945, Routine 1008 (New Bag - Provider: Emilia Alonso, RN) metoprolol tartrate (Lopressor) tablet 100 mg 100 mg, Oral, 2 times daily, First dose on Mon10/17/24 at 1400, Until Discontinued, Routine, Recovery(Phase II-Outpatient)/On Unit(Inpatient) 1414 (Given - Provider: Keisha Waller, CHRISTIAN)2012 (Given - Provider: Jourdan Grimes II, CHRISTIAN) 0809 (Given - Provider: Emilia Alonso, CHRISTIAN)2001 (Given - Provider: Kassie Mao, CHRISTIAN) 0951 (Given - Provider: Keyla Chow) Povidone-Iodine 5 % swab solution 1 Application (COMPLETED) Nasal, Once, 1 dose, On Mon10/17/24 at 0745, Routine 0707 (Given - Provider: Tanja Denise, CHRISTIAN) pravastatin (Pravachol) tablet 40 mg 40 mg, Oral, Nightly, First dose on Mon10/17/24 at 2100, Until Discontinued, Routine, Recovery(Phase II-Outpatient)/On Unit(Inpatient) 2012 (Given - Provider: Jourdan Grimes II, CHRISTIAN) 2001 (Given - Provider: Kassie Mao, CHRISTIAN) rivaroxaban (Xarelto) tablet 20 mg 20 mg, Oral, Daily with dinner, First dose on Mon10/18/24 at 1800, Until Discontinued, Routine 1744 (Given - Provider: Keyla Chow) rOPINIRole (Requip) tablet 2 mg 2 mg, Oral, 2 times daily, First dose on Yadira 10/17/24 at 2100, Until Discontinued, Routine 2012 (Given - Provider: Jourdan Grimes II, CHRISTIAN) 0801 (Given - Provider: Emilia Alonso, RN)2001 (Given - Provider: Kassie Mao, CHRISTIAN) 951 (Given - Provider: Keyla Chow) sodium chloride 0.9 % flush 10 mL (CANCELED)(Linked Group 1) 10 mL, Intravenous, Every 12 hours, First dose on Yadira 10/17/24 at 0745, Until Discontinued, Routine, Holding - Preprocedure 0707 (Given - Provider: Tanja Denise RN)1945 (Given - Provider: Jourdan Grimes II, CHRISTIAN) 0726 (Canceled Entry - Provider: Emilia Alonso RN) tamsulosin (Flomax) 24 hr capsule 0.4 mg 0.4 mg, Oral, Every evening, First dose on Yadira 10/17/24 at 1700, Until Discontinued, Routine, Recovery(Phase II-Outpatient)/On Unit(Inpatient) 1656 (Given - Provider: Keisha Waller, CHRISTIAN) 1744 (Given - Provider: Keyla Chow) PRN Medication Order 10/17/2024 10/18/2024 10/19/2024 acetaminophen (Tylenol) tablet 1,000 mg (COMPLETED) 1,000 mg, Oral, Once as needed, 1 dose, Starting on Yadira 10/17/24 at 1225, Until Yadira 10/17/24 at 1414, Routine, Recovery (Phase I only), pain score of >1 out of 10 1414 (Given - Provider: Keisha Waller, CHRISTIAN) ceFAZolin (Ancef) 1 g in sodium chloride 0.9 % 1,010 mL irrigation (COMPLETED) Continuous PRN, Starting on Yadira 10/17/24 at 0830, Until Yadira 10/17/24 at 1317, Routine 0830 (New Bag - Provider: Dandy Baltazar MD) heparin (porcine) 10,000 Units in sodium chloride 0.9 % 1,010 mL OR irrigation (COMPLETED) Continuous PRN, Starting on Yadira 10/17/24 at 0831, Until Yadira 10/17/24 at 1317, Routine 0831 (New Bag - Provider: Dandy Baltazar MD) hydrALAZINE (Apresoline) injection 10 mg 10 mg, Intravenous, Every 6 hours PRN, Starting on 10/19/24 at 0418, Until 10/19/24 at 1439, Routine, high blood pressure, For SBP > 180 and HR < 70 labetalol (Normodyne,Trandate) injection 20 mg 20 mg, Intravenous, Every 4 hours PRN, Starting on 10/19/24 at 0418, Until 10/19/24 at 1439, Routine, high blood pressure, For SBP > 180 and HR > 70 ondansetron (Zofran) 4 MG/5ML solution 4 mg(Linked Group 2) 4 mg, Oral, Every 6 hours PRN, Starting on Yadira 10/17/24 at 1308, Until 10/19/24 at 1439, Routine, Recovery(Phase II-Outpatient)/On Unit(Inpatient), nausea, vomiting ondansetron (Zofran) injection 4 mg(Linked Group 2) 4 mg, Intravenous, Every 6 hours PRN, Starting on Yadira 10/17/24 at 1308, Until 10/19/24 at 1439, Routine, Recovery(Phase II-Outpatient)/On Unit(Inpatient), vomiting, nausea ondansetron ODT (Zofran-ODT) disintegrating tablet 4 mg(Linked Group 2) 4 mg, Oral, Every 6 hours PRN, Starting on Yadira 10/17/24 at 1308, Until 10/19/24 at 1439, Routine, Recovery(Phase II-Outpatient)/On Unit(Inpatient), nausea, vomiting oxyCODONE (Roxicodone) immediate release tablet 5 mg 5 mg, Oral, Every 4 hours PRN, Starting on Yadira 10/17/24 at 1308, Until 10/19/24 at 1439, Routine, Recovery(Phase II-Outpatient)/On Unit(Inpatient), moderate pain, severe pain 1856 (Given - Provider: Keisha Waller, CHRISTIAN)2302 (Given - Provider: Jourdan Grimes II, RN) 0444 (Given - Provider: Rose De La Torre RN)1109 (Given - Provider: Emilia Alonso RN) 0239 (Given - Provider: Kassie Mao, CHRISTIAN) Linked Groups Order Group 1: Insert peripheral IV (CANCELED) Once, On Yadira 10/17/24 at 0654, For 1 occurrence, Holding - Preprocedure And Saline lock IV (CANCELED) Once, On Yadira 10/17/24 at 0654, For 1 occurrence, Holding - Preprocedure And sodium chloride 0.9 % flush 10 mL (CANCELED)Jump to med 10 mL, Intravenous, Every 12 hours, First dose on Yadira 10/17/24 at 0745, Until Discontinued, Routine, Holding - Preprocedure And sodium chloride 0.9 % flush 10 mL (CANCELED) 10 mL, Intravenous, As needed, Starting on Yadira 10/17/24 at 0653, Until 10/18/24 at 1510, Routine, Holding - Preprocedure, line care Group 2: ondansetron ODT (Zofran-ODT) disintegrating tablet 4 mgJump to med 4 mg, Oral, Every 6 hours PRN, Starting on Yadira 10/17/24 at 1308, Until 10/19/24 at 1439, Routine, Recovery(Phase II-Outpatient)/On Unit(Inpatient), nausea, vomiting Or ondansetron (Zofran) injection 4 mgJump to med 4 mg, Intravenous, Every 6 hours PRN, Starting on Yadira 10/17/24 at 1308, Until 10/19/24 at 1439, Routine, Recovery(Phase II-Outpatient)/On Unit(Inpatient), vomiting, nausea Or ondansetron (Zofran) 4 MG/5ML solution 4 mgJump to med 4 mg, Oral, Every 6 hours PRN, Starting on Yadira 10/17/24 at 1308, Until 10/19/24 at 1439, Routine, Recovery(Phase II-Outpatient)/On Unit(Inpatient), nausea, vomiting documented in this encounter Additional Health Concerns Active Problems Noted Date Diagnosed Date Autogenerated Problem 09/23/2024 Assessment Noted Time A Body Mass Index follow-up plan has been documented for the patient 10/19/2024 11:46 AM EDT documented as of this encounter Care Teams Train Gateman Relationship Specialty Start Date End Date Asad Victor MD [address] [place] [address] PCP - General 10/07/22 documented as of this encounter
--- OUTSIDE RECORDS SUMMARY | 2024-10-17 07:51 | XMS_ITS | Encounter Summary ---
Author Organization [facility] Address [address] [id number] Care Team Providers Care Income Tax Return Preparer Name Role Phone Asad Victor MD Primary Care Provider + [phone] Reason for Visit * Auth/Cert (Routine) Specialty Diagnoses / Procedures Referred By Contac t Referred To Contact Diagnoses Critical limb ischemia of left lower extremity Critical limb ischemia of left lower extremity [I70.222] Procedures UT VEIN BYPASS GRAFT,FEM-POP CREATION, BYPASS, ARTERIAL, FEMORAL TO POPLITEAL Terrell Gautam MD [address] [facility] [address] [place] [address] Phone: tel: fax: [facility] [address] [place] [address] Phone: tel: Referral ID Status Reason Start Date Expiration Date Visits Re quested Visits Authorized [id number] 1 1 Encounter Details Date Type Department Care Team (Late st Contact Info) Description 10/17/2024 7:51 AM EDT Anesthesia Event [facility] [address] [place] [id number] Maria Fernanda Mccallum MD [address] [place] [address] Anesthesia Record Procedure Summary Procedure Name Responsible [...] acknowledgement of understanding. 1324 An Stop Meds Name Total propofol (Diprivan) injection 10 mg/mL 2 00 mg rocuronium (ZeMuron) injection 10 mg/mL 130 mg sugammadex (Bridion) injection 100 mg/mL 200 mg fentaNYL (Sublimaze) injection 50 mcg/mL 250 mcg HYDROmorphone PF (Dilaudid) injection 1 mg/mL 0.8 mg dexmedetomidine (Precedex) injection 100 mcg/mL 28 mcg phenylephrine (Cordell-Synephrine) prefilled syringe 1 mg/10 mL 1,000 mcg heparin injection 1,000 units/mL 19,000 Units ondansetron (Zofran) injection 4 mg dexamethasone (Decadron) injection 4 mg/ mL 8 mg Lidocaine HCl 100 MG/5ML 80 mg phenylephrine in 0.9% NaCl infusion 100 mcg/mL 2.15 mg ceFAZolin (Ancef) injection 2 g 4 g insulin regular injection in 0.9% NS 1 u nit/mL 10 Units lactated Ringer's infusion 1,100 mL sodium chloride 0.9 % infusion 1,200 mL sodium chloride 0.9 % infusion 359.42 mL * Agents Name O2 N2O Air Sevoflurane Inspired Sevoflurane N2O Inspired N2O * Blood No blood administrations on file. [...] Hand; Site Prep: Chlorhexidine ; Local Anesth: Celina; Technique: Anatomical landmarks; Inserted by: CHRISTIAN Acuna; [...] Tolerated well; Removal Date: 10/17/24; Removal Time: 1425 10/17/24 0825 by Jenna Lopez CRNA 10/17/24 1425 by Keisha Waller RN Peripheral IV Placement Date: 09/25 07/19; Placement Time: 0852 (created via procedure documentation); Orientation: Left; Location: Forearm; Local Anesth: None; Technique: Ultrasound guidance; Inserted by: Maria Fernanda Mccallum MD; Insertion Attempts: 1; Removal Date: 10/19/24; Removal Time: 1130 10/17/24 0852 by Maria Fernanda Mccallum MD 10/19/24 1130 by Keyla Chow documented in this encounter [...] in the past 12 m [facility], were you homeless or living in a long term (including now)? No 10/18/2024 CAGE ASSESSMENT Answer [...] drink first t dino in the morning ([employer] KAY STITCHER) to steady your nerves or to get rid of a hangover? 0 10/18/2021 CAGE Questionnaire Score 0 022 Utilities Answer Date Recorded In the past 12 months has th e electric, gas, oil, or water company threatened to shut off services in your home? No 10/18/2024 Sex and Gender Information Value Date Recorded Sex Assigned at Not on file Legal Sex Male 8:57 PM EDT Gender Identity Not on file Sexual Orientation Not on file documented as of this encounter Miscellaneous Notes * Anesthesia Postprocedure Evaluation - Jenna Lopez, FLAKE CUTTER OPERATOR - 10/17/2024 1:29 PM EDT Patient: Mono Bobby Anesthesia Type: general Vitals Value Taken Time BP 171/76 10/17/24 13:25 Temp 97.4 10/17/24 13:29 Pulse 107 10/17/24 13:28 Resp 14 10/17/24 13:28 SpO2 100 % 10/17/24 13:28 Vitals shown include unfiled device data. Anesthesia Post Evaluation Patient location during evaluation: PACU Patient participation: complete - patient participated Level of consciousness: awake Pain management: adequate (pain score 0-3) Airway patency: natural airway Cardiovascular status: acceptable and hemodynamically stable Respiratory status: acceptable, blow-by oxygen, spontaneous ventilation and unassisted Hydration status: acceptable Nausea/Vomiting: No No notable events documented. * Anesthesia Procedure Notes - Jenna Lopez CRNA - 10/17/2024 9:01 AM EDT Associated Order(s): Arterial Line Arterial Line: Date/Time: 10/17/2024 8:25 AM An arterial line was placed. Procedure performed using ultrasound guidance in the OR for the following indication(s): continuousblood pressure monitoring. A 20 gauge (size) (length), Angiocath (type) catheter was placed into the Right axillary artery andsecured by suture. Events: patient tolerated procedure well with no complications. Additional notes: Performed by Swetha Villareal MD Staffing Performed: ISH FLAKE CUTTER OPERATOR: Jenna Lopez CRNA * Anesthesia Procedure Notes - Jenna Lopez CRNA - 10/17/2024 9:00 AM EDT Associated Order(s): Airway Airway Date/Time: 10/17/2024 8:03 AM Reason: elective Airway not difficult General Information and Staff Patient location during procedure: OR FLAKE CUTTER OPERATOR: Jenna Lopez CRNA Performed: FLAKE CUTTER OPERATOR Patient Condition Indications for airway management: anesthesia Patient position: sniffing Final Airway Details Final airway type: endotracheal airway Successful airway: ETT Cuffed: yes Successful intubation technique: direct laryngoscopy Adjuncts used in placement: intubating stylet Endotracheal tube insertion site: oral Blade: Prince Blade size: #3 ETT size (mm): 7.5 Cormack-Lehane Classification: grade IIa - partial view of glottis Placement verified by: chest auscultation and capnometry Measured from: lips ETT to lips (cm): 23 Additional Comments Atraumatic. No change to dentition. * Anesthesia Procedure Notes - Maria Fernanda Mccallum MD - 10/17/2024 8:52 AM EDT Associated Order(s): Peripheral IV Peripheral IV Inserted by: Maria Fernanda Mccallum MD Placement Location: forearm Local anesthetic: none Site prep: chlorhexidine Technique: ultrasound guided Attempts: 1 * Anesthesia Procedure Notes - Maria Fernanda Mccallum MD - 10/17/2024 7:18 AM EDT Associated Order(s): POC Ultrasound - Cardiac POC Ultrasound - Cardiac Performed by: Maria Fernanda Mccallum MD Authorized by: Maria Fernanda Mccallum MD Procedure specific details: Limited Cardiac Ultrasound A focused ultrasound of the heart was performed to evaluate for pericardial effusion, tamponade, severe hypovolemia, or gross abnormalities of cardiac anatomy or function in this patient. The ultrasound was performed with the following indications, as noted in the H&P: History of CABG, prior to vascular surgery Identified structures: The pericardial sac, myocardium, and 4 chambers were identified using the following views: Subxiphoid, Parasternal long axis, Parasternal short axis, and Apical 4 chamber Findings Exam of the above structures revealed the following findings: Pericardial Effusion: Absent Pericardial tamponade: absent Visual estimation of LV function: Mildly depressed Visual estimation of RV size: less than 1:1 RV/LV ratio Other: Normal RV systolic function Impression: Mildly decreased LV systolic function. Trace AR. The images were Saved in [employer] - E. The study was technically adequate. 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 S/P intravascular lithotripsy of left common and external iliac artery with 2 continuous balloon mounted bare metal stents 09/12/24 on Xarelto and ASA + WILHELM occ, low energy for > year - had work-up recently in [place] (will get records) + peripheral edema LLE [...] Mild AR OSH Device interrogation 08/28/2024 (media) Berger SJM DOI 10/04/2023 MODE: DDDR Physical Exam Airway Mallampati: III Mouth opening: normal Neck ROM: full Cardiovascular Rhythm: regular Rate: normal Dental (+) edentulous Pulmonary (+) decreased breath sounds Neurological Oriented: normal to time, normal to place and normal to person Skin Musculoskeletal Extremities Anesthesia Plan ASA 3 Plan was reviewed with: FLAKE CUTTER OPERATOR Anesthesia technique(s) discussed with the patient/family: general Anesthesia plan agreed upon was: general Anesthetic plan and risks discussed with patient. Use of blood products discussed with patient who. Maria Fernanda Mccallum MD [1] Past Medical History: Diagnosis Date ??? Arthritis ??? Old myocardial infarction History of myocardial infarction [2] Family History Problem Relation Name Age of Onset ??? COPD Mother ??? Diabetes Sister ??? Anesthesia problems Neg Hx ??? Malig Hyperthermia Neg Hx [3] Social History Tobacco Use ??? Smoking status: Former Types: Cigarettes Passive exposure: Past ??? Smokeless tobacco: Never ??? Tobacco comments: Smoked 1-2 PPD for at least 30 years. Quit 2017 Vaping Use ??? Vaping status: Never Used Substance Use Topics ??? Alcohol use: Not Currently Comment: holidays/special occasions ??? Drug use: Yes Types: Marijuana Comment: daily marijuana, 1-2 blunts/day [4] Past Surgical History: Procedure Laterality Date ??? ANKLE SURGERY Right ??? CARDIAC PACEMAKER PLACEMENT ??? CAROTID ENDARTERECTOMY N/A 2017 Endarterectomy Carotid Artery from anchor.travel ??? CORONARY ANGIOPLASTY Left Coronary Angiography With Concomitant Left Heart Catheterization from anchor.travel ??? CORONARY ARTERY BYPASS GRAFT N/A 2018 3V ??? ELBOW SURGERY Right ??? HERNIA REPAIR ??? KNEE ARTHROSCOPY Left [5] No Known Allergies [6] No current facility-administered medications for this encounter. Current Outpatient Medications: ??? Aspirin Low Dose, Take 1 tablet by mouth daily. ??? docusate sodium, Take 1 capsule by mouth daily. ??? insulin aspart protamine-insulin aspart, Inject 12 Units under the skin 2 times a day with meals. (Patient taking differently: Inject 15 Units under the skin 2 times a day with meals.) ??? insulin glargine, Inject 28 Units under the skin nightly. ??? insulin lispro protamine-insulin lispro, Inject 12 Units under the skin 2 times a day with meals. ??? isosorbide mononitrate ER, Take 1 tablet by mouth daily. ??? lisinopril, Take 1 tablet by mouth daily. ??? metoprolol tartrate, Take 1 tablet by mouth 2 times a day. ??? pravastatin, Take 1 tablet by mouth nightly. ??? rOPINIRole, Take 1 tablet by mouth 2 times a day. (Patient taking differently: Take 2 tablets by mouth 2 times a day.) ??? tamsulosin, Take 1 capsule by mouth every evening. ??? Xarelto, Take 1 tablet by mouth 2 times a day. documented in this encounter Plan of Treatment Upcoming Encounters Date Type Department Care Team (Late st Contact Info) Description 11/26/2024 2:00 PM EDT Appointment [facility] [address] [place] [address] 11/26/2024 2:30 PM EDT Appointment [facility] [address] [place] [address] 11/26/2024 3:20 PM EDT Office Visit [facility] [address] [place] [address] Elisabet Schuster PA [address] [facility] [address] [place] [address] 11/29/2024 2:30 PM EDT Office Visit [facility] [address] [place] [address] Oscar Appiah MD [address] [facility] [address] [place] [address] documented as of this encounter Goals Goal Patient Goal Type Associated Problems Recent Progress Patient-Stated? Author Autogenera louise Goal Care Plan Autogenerated Problem No Ekta Arnett documented as of this encounter Procedures Procedure Name Priority Date/Time Associated Diagnosis Comments ANESTHESIA ULTRASOUND GUIDED Routine 10/17/2024 8:52 AM EDT PB ANESTHESIA NON-TIMED PROCEDURE PLACEHOLDER Routine 10/17/2024 8:25 AM EDT PB ANESTHESIA PLACEHOLDER Routine 10/17/2024 8:03 AM EDT UT AN ELECTIVE ENDOTRACHEAL AIRWAY Routine 10/17/2024 8:03 AM EDT [facility] AN POCUS CARDIAC PROCDOC Routine 10/17/2024 7:18 AM EDT documented in this encounter Results * ANESTHESIA ULTRASOUND GUIDED (10/17/2024 8:52 AM EDT) Narrative Maria Fernanda Mccallum MD - 10/17/2024 8:52 AM EDT Maria Fernanda Mccallum MD 10/17/2024 8:52 AM Peripheral IV Inserted by: Maria Fernanda Mccallum MD Placement Location: forearm Local anesthetic: none Site prep: chlorhexidine Technique: ultrasound guided Attempts: 1 Maria Fernanda Mccallum MD ANESTHESIA ORDERABLES Final Result * PB ANESTHESIA NON-TIMED PROCEDURE PLACEHOLDER (10/17/2024 8:25 AM EDT) Narrative Jenna Lopez CRNA - 10/17/2024 8:25 AM EDT Jenna Lopez CRNA 10/17/2024 9:49 AM Arterial Line: Date/Time: 10/17/2024 8:25 AM An arterial line was placed. Procedure performed using ultrasound guidance in the OR for the following indication(s): continuous blood pressure monitoring. A 20 gauge (size) (length), Angiocath (type) catheter was placed into the Right axillary artery and secured by suture. Events: patient tolerated procedure well with no complications. Additional notes: Performed by Swetha Villareal MD Staffing Performed: FLAKE CUTTER OPERATOR FLAKE CUTTER OPERATOR: Jenna Lopez CRNA Maria Fernanda Mccallum MD ANESTHESIA ORDERABLES Edite d Result - Final * UT AN ELECTIVE ENDOTRACHEAL AIRWAY, PB ANESTHESIA PLACEHOLDER (10/17/2024 8:03 AM EDT) Narrative Jenna Lopez CRNA - 10/17/2024 8:03 AM EDT Jenna Lopez CRNA 10/17/2024 9:00 AM Airway Date/Time: 10/17/2024 8:03 AM Reason: elective Airway not difficult General Information and Staff Patient location during procedure: OR FLAKE CUTTER OPERATOR: Jenna Lopez CRNA Performed: ISH Patient Condition Indications for airway management: anesthesia Patient position: sniffing Final Airway Details Final airway type: endotracheal airway Successful airway: ETT Cuffed: yes Successful intubation technique: direct laryngoscopy Adjuncts used in placement: intubating stylet Endotracheal tube insertion site: oral Blade: Prince Blade size: #3 ETT size (mm): 7.5 Cormack-Lehane Classification: grade IIa - partial view of glottis Placement verified by: chest auscultation and capnometry Measured from: lips ETT to lips (cm): 23 Additional Comments Atraumatic. No change to dentition. Maria Fernanda Mccallum MD ANESTHESIA ORDERABLES Final Result * [facility] AN POCUS CARDIAC PROCDOC (10/17/2024 7:18 AM EDT) Narrative Maria Fernanda Mccallum MD - 10/17/2024 7:18 AM EDT Maria Fernanda Mccallum MD 10/17/2024 7:19 AM POC Ultrasound - Cardiac Performed by: Maria Fernanda Mccallum MD Authorized by: Maria Fernanda Mccallum MD Procedure specific details: Limited Cardiac Ultrasound A focused ultrasound of the heart was performed to evaluate for pericardial effusion, tamponade, severe hypovolemia, or gross abnormalities of cardiac anatomy or function in this patient. The ultrasound was performed with the following indications, as noted in the H&P: History of CABG, prior to vascular surgery Identified structures: The pericardial sac, myocardium, and 4 chambers were identified using the following views: Subxiphoid, Parasternal long axis, Parasternal short axis, and Apical 4 chamber Findings Exam of the above structures revealed the following findings: Pericardial Effusion: Absent Pericardial tamponade: absent Visual estimation of LV function: Mildly depressed Visual estimation of RV size: less than 1:1 RV/LV ratio Other: Normal RV systolic function Impression: Mildly decreased LV systolic function. Trace AR. The images were Saved in [employer]. The study was technically adequate. Comments: I personally performed and interpreted the study us Maria Fernanda Mccallum MD IN CLINIC/BEDSIDE ORDERABLE S Final Result documented in this encounter Visit Diagnoses Not on filedocumented in this encounter Administered Medications Inactive Administered Medications - up to 3 most recent administrations Medication Order MAR Action Action Date Dose Rate Site ceFAZolin (Ancef) injection 2 g 2 g, Intravenous, Once, 1 dose, On Yadira 10/17/24 at 0745, Routine, Anesthesia Intraprocedure Given 10/17/2024 12:34 PM EDT 2 g Given 10/17/2024 8:42 AM EDT 2 g dexamethasone (Decadron) injection Intravenous, As needed, Starting on Yadira 10/17/24 at 0803, Until Yadira 10/17/24 at 1329, Routine, Anesthesia Intraprocedure Given 10/17/2024 12:16 PM EDT 4 mg Given 10/17/2024 8:03 AM EDT 4 mg dexmedetomidine (Precedex) 100 MCG/ML concentrated solution Intravenous, As needed, Starting on Yadira 10/17/24 at 0914, Until Yadira 10/17/24 at 1329, Routine, Anesthesia Intraprocedure Given 10/17/2024 1:15 PM EDT 4 mcg Given 10/17/2024 1:00 PM EDT 4 mcg Given 10/17/2024 12:42 PM EDT 4 mcg fentaNYL (Sublimaze) injection Intravenous, As needed, Starting on Yadira 10/17/24 at 0758, Until Yadira 10/17/24 at 1329, Routine, Anesthesia Intraprocedure Given 10/17/2024 1:07 PM EDT 25 mcg Given 10/17/2024 12:35 PM EDT 25 mcg Given 10/17/2024 9:46 AM EDT 50 mcg heparin (porcine) injection Intravenous, As needed, Starting on Yadira 10/17/24 at 0957, Until Yadira 10/17/24 at 1329, Routine, Anesthesia Intraprocedure Given 10/17/2024 11:52 AM EDT 5,000 Units Given 10/17/2024 10:43 AM EDT 4,000 Units Given 10/17/2024 9:57 AM EDT 10,000 Units HYDROmorphone PF (Dilaudid) injection Intravenous, As needed, Starting on Yadira 10/17/24 at 0910, Until Yadira 10/17/24 at 1329, Routine, Anesthesia Intraprocedure Given 10/17/2024 1:14 PM EDT 0.2 mg Given 10/17/2024 12:45 PM EDT 0.2 mg Given 10/17/2024 12:13 PM EDT 0.2 mg insulin regular in sodium chloride 0.9 % 1 UNIT/ML infusion Intravenous, As needed, Starting on Yadira 10/17/24 at 1018, Until Yadira 10/17/24 at 1329, Routine, Anesthesia Intraprocedure Given 10/17/2024 12:08 PM EDT 5 Units Given 10/17/2024 10:18 AM EDT 5 Units lactated Ringer's infusion Intravenous, Continuous PRN, Starting on Yadira 10/17/24 at 0751, Until Yadira 10/17/24 at 1329, Routine New Bag 10/17/2024 7:51 AM EDT Lidocaine HCl prefilled syringe Buccal, As needed, Starting on Yadira 10/17/24 at 0800, Anesthesia Intraprocedure Given 10/17/2024 8:00 AM EDT 80 mg ondansetron (Zofran) injection Intravenous, As needed, Starting on Yadira 10/17/24 at 1216, Until Yadira 10/17/24 at 1329, Routine, Anesthesia Intraprocedure Given 10/17/2024 12:16 PM EDT 4 mg phenylephrine 25 mg in NS 250 mL (0.1 mg/mL) infusion (compounding pharmacy premix) Intravenous, Continuous PRN, Starting on Yadira 10/17/24 at 0837, Until Yadira 10/17/24 at 1329, Routine, Anesthesia Intraprocedure Rate/Dose Change 10/17/2024 12:13 PM EDT 0.1 mcg/kg/min 5.604 mL/hr Rate/Dose Change 10/17/2024 11:45 AM EDT 0.2 mcg/kg/min 11 .208 mL/hr Rate/Dose Change 10/17/2024 10:34 AM EDT 0.1 mcg/kg/min 5. 604 mL/hr phenylephrine in NS (Cordell-Synephrine) 100 mcg/mL prefilled syringe Intravenous, As needed, Starting on Yadira 10/17/24 at 0814, Until Yadira 10/17/24 at 1329, Routine, Anesthesia Intraprocedure Given 10/17/2024 12:32 PM EDT 100 mcg Given 10/17/2024 11:45 AM EDT 100 mcg Given 10/17/2024 10:10 AM EDT 100 mcg propofol (Diprivan) injection Intravenous, As needed, Starting on Yadira 10/17/24 at 0800, Until Yadira 10/17/24 at 1329, Routine, Anesthesia Intraprocedure Given 10/17/2024 8:53 AM EDT 60 mg Given 10/17/2024 8:00 AM EDT 140 mg rocuronium (ZeMuron) injection Intravenous, As needed, Starting on Yadira 10/17/24 at 0801, Until Yadira 10/17/24 at 1329, Routine, Anesthesia Intraprocedure Given 10/17/2024 10:59 AM EDT 30 mg Given 10/17/2024 9:45 AM EDT 30 mg Given 10/17/2024 8:01 AM EDT 70 mg sodium chloride 0.9 % infusion Intravenous, Continuous PRN, Starting on Yadira 10/17/24 at 0850, Until Yadira 10/17/24 at 1329, Routine New Bag 10/17/2024 8:50 AM EDT sodium chloride 0.9 % infusion Intravenous, Continuous PRN, Starting on Yadira 10/17/24 at 0837, Until Yadira 10/17/24 at 1329, Routine New Bag 10/17/2024 8:37 AM EDT 95 mL/hr sugammadex (Bridion) 100 MG/ML injection Intravenous, As needed, Starting on Yadira 10/17/24 at 1245, Until Yadira 10/17/24 at 1329, Routine, Anesthesia Intraprocedure Given 10/17/2024 12:45 PM EDT 200 mg documented in this encounter Additional Health Concerns Active Problems Noted Date Diagnosed Date Autogenerated Problem 09/23/2024 Assessment Noted Time A Body Mass Index follow-up plan has been documented for the patient 10/19/2024 11:46 AM EDT documented as of this encounter Care Teams Income Tax Return Preparer Relationship Specialty Start Date End Date Asad Victor MD [address] [place] [address] PCP - General 10/07/22 documented as of this encounter
--- OUTSIDE RECORDS SUMMARY | 2024-10-17 08:00 | XMS_ITS | Encounter Summary ---
Author Organization [facility] Address [address] [place] [address] Care Team Providers Care Director Merit System Name Role Phone Asad Victor MD Primary Care Provider + [phone] Reason for Visit * Auth/Cert (Routine) Specialty Diagnoses / Procedures Referred By Contac t Referred To Contact Diagnoses Critical limb ischemia of left lower extremity Critical limb ischemia of left lower extremity [I70.222] Procedures KS VEIN BYPASS GRAFT,FEM-POP CREATION, BYPASS, ARTERIAL, FEMORAL TO POPLITEAL Terrell Gautam MD [address] [address] Phone: tel: fax: [facility] [address] [place] [address] Phone: tel: Referral ID Status Reason Start Date Expiration Date Visits Re quested Visits Authorized [id number] 1 1 Encounter Details Date Type Department Care Team (Late st Contact Info) Description 10/17/2024 8:00 AM EDT - 10/17/2024 2:50 PM EDT Surgery [facility] [address] [place] [address] Terrell Gautam MD [address] [address] CREATION, BYPASS, ARTERIAL, FEMORAL TO POPLITEAL [89821 (CPT )] Surgery Details Date/Time Status Location [...] time in the past 12 m [facility], were you homeless or living in a [...] drink first t dino in the morning (EYE-SOLE LEVELING MACHINE OPERATOR) to steady your nerves or to get rid of a hangover? 0 10/18/2021 CAGE Questionnaire Score 0 022 Utilities Answer Date Recorded In the past 12 months has th e [employer], gas, oil, or water [employer] threatened to shut off services in your [...] provided Taken 10/17/20242107 by Jourdan Grimes II, handle attacher Review/Management: medications reviewed Problem: Skin Injury Risk [...] Ongoing, Progressing Intervention: Promote Activity and Functional [place] Flowsheets (Taken 10/19/2024 1048) Self-Care Promotion: BADL personal objects within reach meal set-up provided * Yuni DiorJOSE MANUEL - Keyla Chow - 10/19/2024 11:45 AM EDT Images from the original note were not included. [id number] After Peripheral Artery Bypass Surgery: In the [...] home. Last Reviewed Date: 2023 00:00:00 ?? [id number] [employer]. All rights reserved. This information is not intended as a substitute for professional medical care. Always follow your healthcare professional's instructions. * Progress Notes - Emelina Friend - 10/19/2024 11:44 AM EDT Case Management Adult Progress Note Bev Bobby 64 y.o. male CSN: [id number] Admission: 10/17/2024 6:21 AM Primary Problem: Critical [...] if any other needs arise. Emelina Friend CARE TRAINER, HABITAT MANAGEMENT COORDINATOR Social Work Case Management * Keyla Reyes - 10/19/2024 11:44 AM EDT Images from the original note were not included. [id number] Peripheral Artery Disease (PAD) Peripheral artery disease [...] cause. Last Reviewed Date: 2024 00:00:00 ?? [id number] [employer]. All rights reserved. This information is not intended as a substitute for professional medical care. Always follow your healthcare professional's instructions. * Yuni Ramires - Keyla Chow - 10/19/2024 11:44 AM EDT Images from the original note were not included. [id number] Leg Artery Emergencies: Critical Limb Ischemia (CLI) [...] appointments. Last Reviewed Date: 2023 00:00:00 ?? [id number] [employer]. All rights reserved. This information is not intended as a substitute for professional medical care. Always follow your healthcare professional's instructions. * Discharge Summary - Dandy Baltazar MD - 10/19/2024 11:31 AM EDT Hospitalization Admit Date/Time: 10/17/2024 6:21 AM Admitting Attending: Terrell Gautam Discharge Date: 10/19/24 Discharge Attending Physician: Nirmal Cueto MD PCP name and Address: Asad Victor MD (Inactive) [address] [facility] [address] Referring provider name and address: Timothy Marques PA [address] [place] [address] Chief Concern, Brief History of Present Illness, and Hospital Course Bev Bobby is an 64 y.o. 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 He [...] [facility] [place], [place] - [address] [facility] [facility] [facility] [address] acetaminophen 500 MG tablet clopidogrel 75 MG [...] of water. 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 He [...] provided Taken 10/17/20242107 by Jourdan Grimes II handle attacher Review/Management: medications reviewed Problem: Skin Injury Risk [...] Ongoing, Progressing Intervention: Promote Activity and Functional [place] Flowsheets (Taken 10/19/2024 1048) Self-Care Promotion: BADL [...] evaluation. PARTICIPANTS IN CARE Visitors Present No Archery Equipment Repairer (if applicable) PRESENTATION Oxygen Oxygen Therapy: None [...] Level of Mobility Ambulatory- household only Mobility [place] Independent gait with device (rollator) History of [...] numbness in rodney) BED MOBILITY Level of [place] Physical/Non- physical Assist Adaptive Equipment Utilized Rolling/ Turning Scooting/ Bridging Modified independence (anteriorly to EOB) Bed rails Supine to Sit Modified [place] (to the right) (HOB flat) Bed rails Sit to Supine Interventions HOB flat to simulate home environment TRANSFERS Level of [place] Physical/Non- physical Assist Adaptive Equipment Utilized Sit [...] stable surfaces during transitions. AMBULATION Level of [place] Distance Adaptive Equipment Utilized Ambulation Standby assist, [...] Posture: Forward head, Rounded shoulders Level of [place] Balance Support Interventions Static Sit Independent Right [...] 3-5 steps with a railing?: A little [facility] 6-Clicks Mobility Assessment Total : 22 [...] evaluation/session. Participants in Care Family/Caregiver Present: No Archery Equipment Repairer: Not Applicable Presentation Oxygen Therapy: None (Room [...] Level of Mobility: Ambulatory- household only Mobility [place]: Independent gait with device (rollator) History of [...] Mobility Bed Mobility Exam: Scooting/Bridging Level of [place]: Modified independence (anteriorly to EOB) Assistive Device: Bed rails Bed Mobility Exam: Supine to Sit Level of [place]: Modified [place] (to the right) Physical/Nonphysical Assist: (HOB flat) Assistive Device: Bed rails Transfers Transfer Exam: Sit to stand Level of [place]: Stand-by assist Physical/Nonphysical Assist: Supervision, Verbal Cues, Minimal cues Assistive Device: Walker, rolling Transfer Exam: Stand to Sit Level of [place]: Stand-by assist Physical/Nonphysical Assist: Supervision, Verbal Cues, [...] regarding toileting at this time. Standardized Assessments [facility] 6-Click Daily Activities Help from Other: Don/Doff Regular Lower Body Clothings: None Help From Other: Bathing: Little Help From Other: Toileting: None Help From Other: Don/Doff Upper Body Clothings: None Help From Other: Grooming: None Help From Other: Eating Meals: None [facility] 6 Click - Daily Activities Score: 23/24 [facility] Scoring Interpretation: Scores greater than 20.5 [...] Note Bev Bobby 64 y.o. male CSN: [id number] Admission: 10/17/2024 6:21 AM Primary Problem: Critical limb ischemia of left lower extremity Crm Dynamics Developer reviewed chart and spoke with patient to complete this Initial Case Management Assessment. PCP: Asad Victor MD (Inactive) - Dr. Palomo Preferred pharmacy is [facility] Emergency Contact: Extended Emergency Contact Information Primary Emergency Contact: Patti Hill Relation: Sister Archery Equipment Repairer needed? No Insurance: Primary Visit Coverage Payer Plan Sponsor Code Group Number Group Name [facility] MEDICARE REPLACEMENT [id number] Primary Visit Coverage Subscriber Subscriber ID Subscriber Name Subscriber [facility] Subscriber Address [id number] BEV BOBBY [id number] [place] [address] Secondary Visit Coverage Payer Plan Sponsor Code Group Number Group Name [facility] [facility] Secondary Visit Coverage Subscriber Subscriber ID Subscriber Name Subscriber N Subscriber Address [id number] BEV BOBBY [id number] [place] [address] Patient information: Primary Caregiver: Self Daily Living Activities: Functional Status: Independent Living Arrangements: Alone Type of Residence: Private residence, Single Level [address] [place] [address] Current DME: Equipment Currently Used at Home: joy monterroso Income Information: Income Source: Retired Income/Expense Information: Income meets expenses Current Resources Utilized: Food [place] Housing Circumstances-Z Codes: Housing Circumstances (select all [...] Services: None. Living Will/Advance Directive/Power of Supervisor Industrial [employer] Education /Guardian: Denied. Additional Comments: Patient is not medically ready for discharge. SW will continue to follow. Mariia Monterroso HABITAT MANAGEMENT COORDINATOR * Care Plan - Emilia Alonso [...] from the original note were not included. [facility] Department of Surgery Division of Vascular [...] Prevention: activity supervised assistive device/personal items within [facility] fall prevention program maintained lighting adjusted clutter-free [...] Prevention: activity supervised assistive device/personal items within [facility] fall prevention program maintained lighting adjusted clutter-free [...] Agree with above assessment and evaluation from resident/CD TECHNICIAN. * Op Note - Terrell Gautam MD - 10/17/2024 8:52 AM EDT Operative Note Date: 10/17/24 Location: [place] Name: Bev Bobby, : 1960, Diagnoses: Pre-op Diagnosis Critical limb ischemia of left lower extremity Common femoral artery pseudoaneurysm Post-op Diagnosis Critical limb ischemia of left lower extremity Common femoral artery pseudoaneurysm Procedure(s): Left common/superficial/profunda femoral thromboendarterectomy with bovine patch repair Left external iliac artery/CROSSWORD PUZZLE MAKER stent Attending Surgeon(s): * Terrell Gautam - Primary Customs Entry Writer(s): * Luna Beckett MD - Resident - [...] Necessity Reasons Recent surgery contiguous with urinary tract/BOTTLE FILLER/colorectal 10/17/24 1900 Output (mL) 50 mL 10/18/24 0800 Implants Type Name Action Serial No. VASCUGUARD 8 X 8 - [id number] Implanted STENT ENDOPROSTHESIS VIABAHN 9FR [id number] - [id number] Implanted [id number] Specimen: Specimens ID Source Frozen? 1 Other [...] and distal control. We then proceeded with zdztx-[id number] exposure of the popliteal artery. A medial [...] balloon dilated thestent with a 9 mm [place]. We closed the arteriotomy with a single [...] 10/17/2024 8:52 AM EDT Date: 10/17/24 Location: [place] Name: Bev Bobby, : 1960, Diagnoses: Pre-op Diagnosis Critical limb ischemia of left lower extremity Common femoral artery pseudoaneurysm Post-op Diagnosis Critical limb ischemia of left lower extremity Common femoral artery pseudoaneurysm Procedure(s): Left common/superficial/profunda femoral thromboendarterectomy with bovine patch repair Left external iliac artery/CROSSWORD PUZZLE MAKER stent Attending Surgeon(s): * Terrell Gautam - Primary Customs Entry Writer(s): * Luna Beckett MD - Resident - Assisting * Dandy Baltazar MD - Fellow Anesthesia: General ASA: III Blood Administration: Blood Product Administration History None Estimated Blood Loss: 300 mL Drains: Urethral Catheter Temperature probe 16 Fr. (Active) Implants Type Name Action Serial No. VASCUGUARD 8 X 8 - [id number] Implanted STENT ENDOPROSTHESIS VIABAHN 9FR [id number] - [id number] Implanted [id number] Specimen: Specimens ID Source Frozen? 1 Other [...] issues. 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 He previouslyunderwent thrombin injection. He reports pain in his calves. He presents today for scheduled left lower extremity femoral to gcbfw-ccd-[id number] popliteal bypass. Planned likely use PTFE. He [...] 16. Results Review {Vanishing Link Review Results :[id number] I have reviewed the latest lab and imaging results. Assessment & Plan Critical limb ischemia of left lower extremity Proceed with scheduled surgery left lower extremity femoral to feegw-mgh-qzye popliteal artery bypass graft. Extensive discussion had [...] Info) Description 11/26/2024 2:00 PM EDT Appointment [facility] [address] [place] [address] 11/26/2024 2:30 PM EDT Appointment [facility] [address] [place] [address] 11/26/2024 3:20 PM EDT Office Visit [facility] [address] [place] [address] Elisabet Schuster PA [address] [facility] [address] [place] [address] 11/29/2024 2:30 PM EDT Office Visit [facility] [address] [place] [address] Oscar Appiah MD [address] [facility] [address] [place] [address] Pending Results Name Type Priority Associated Diagnoses [...] Comment 10/19/2024 11:42 AM EDT HEALTHCARE LAB Adapted Physical Education Specialist ID KamranJob 10/20/19 11:42 AM EDT HEALTHCARE LAB Device ID [id number] 10/19/2024 11:42 AM EDT HEALTHCARE LAB Specimen Type POC Capillary 10/19/2024 11:42 AM EDT [facility] Blood Capillary blood specimen / Unknown 10/19/2024 11:40 AM EDT 10/19/2024 11:42 AM EDT us Terrell Gautam MD LAB POINT OF CARE TE ST DOCKED DEVICE UNSOLICITED RESULTS Final Result Performing Organization Address City/State/[facility] Co de Phone Number HEALTHCARE LAB [address] [place] [address] * (ABNORMAL) Protime-INR (10/19/2024 8:25 AM EDT) Pathologist [facility] Prothrombin Time 17.5(H) 12.0 - 14.3 sec [...] INR 2.5 to 3.5 Prevention of recurrent [place] INR 2.5 to 3.5 us Nirmal Cueto MD LAB BLOOD ORDERABLES Final Result Performing Organization Address City/[facility]/ZIP Co de Phone Number [facility] [address] [place] [address] * (ABNORMAL) Phosphorus (10/19/2024 8:25 AM EDT) Phosphorus, Plasma 2.2(L) 2.5 - 4.5 mg/dL 10/19/2024 9:12 AM EDT [facility] Blood Venous blood specimen / Unknown Venipuncture / Unknown 10/19/2024 8:25 AM EDT 10/19/2024 8:43 AM EDT us Nirmal Cueto MD LAB BLOOD ORDERABLES Final Result Performing Organization Address City/[facility] Co de Phone Number [facility] [address] [place] [address] * Magnesium (10/19/2024 8:25 AM EDT) Magnesium, Plasma 2.1 1.9 - 2.4 mg/dL 10/19/2024 9:12 AM EDT [facility] Blood Venous blood specimen / Unknown Venipuncture / Unknown 10/19/2024 8:25 AM EDT 10/19/2024 8:43 AM EDT Nirmal Cueto MD LAB BLOOD ORDERABLES Final Result Performing Organization Address City/[facility]/ZIP Co de Phone Number [facility] [address] [place] [address] * (ABNORMAL) Basic metabolic panel (10/19/2024 8:25 [...] [facility] [address] [place] [address] * (ABNORMAL) CBC W/O Differential (10/19/2024 8:25 [...] [facility] [address] [place] [address] * (ABNORMAL) POCT glucose meter (10/19/2024 7:35 AM EDT) [facility] [address] POCT Glucose 187(H) 74 - 99 mg/dL 10/19/2024 7:37 AM EDT [facility] Comment:Accuracy of a glucos e [...] Comment 10/19/2024 7:37 AM EDT HEALTHCARE LAB Adapted Physical Education Specialist ID Job Andrew 10/20/19 7:37 AM EDT HEALTHCARE LAB Device ID [id number] 10/19/2024 7:37 AM EDT HEALTHCARE LAB Specimen Type POC Capillary 10/19/2024 7:37 AM EDT HEALTHCARE LAB Blood Capillary blood specimen / Unknown 10/19/2024 7:35 AM EDT 10/19/2024 7:37 AM EDT us Terrell Gautam MD LAB POINT OF CARE TE ST DOCKED DEVICE UNSOLICITED RESULTS Final Result Performing Organization Address City/State/[facility] Co de Phone Number HEALTHCARE LAB [address] [place] [address] * (ABNORMAL) POCT glucose meter (10/18/2024 7:22 [...] Comment 10/18/2024 7:24 PM EDT HEALTHCARE LAB Adapted Physical Education Specialist ID Mahesh Aldana 10/18/2024 7:24 PM EDT HEALTHCARE LAB Device ID [id number] 10/18/2024 7:24 PM EDT HEALTHCARE LAB Specimen Type POC Capillary 10/18/2024 7:24 PM EDT HEALTHCARE LAB Blood Capillary blood specimen / Unknown 10/18/2024 7:22 PM EDT 10/18/2024 7:24 PM EDT us Terrell Gautam MD LAB POINT OF CARE TE ST DOCKED DEVICE UNSOLICITED RESULTS Final Result Performing Organization Address City/[facility] Co de Phone Number HEALTHCARE LAB [address] [place] [address] * (ABNORMAL) POCT glucose meter (10/18/2024 6:07 PM EDT) [facility] [address] POCT Glucose 167(H) 74 - 99 mg/dL [...] Comment 10/18/2024 6:09 PM EDT HEALTHCARE LAB Adapted Physical Education Specialist ID David Parks 10/18/2024 6:09 PM EDT HEALTHCARE LAB Device ID [id number] 10/18/2024 6:09 PM EDT [facility] Specimen Type POC Capillary 10/18/2024 6:09 PM EDT [facility] Blood Capillary blood specimen / Unknown 10/18/2024 6:07 PM EDT 10/18/2024 6:09 PM EDT Terrell Gautam MD LAB POINT OF CARE TE ST DOCKED DEVICE UNSOLICITED RESULTS Final Result Performing Organization Address City/[facility] Co de Phone Number HEALTHCARE LAB [address] [place] [address] * (ABNORMAL) POCT glucose meter (10/18/2024 11:56 AM EDT) [facility] [address] POCT Glucose 233(H) 74 - 99 mg/dL [...] 10/21/2024 7:42 AM EDT [facility] Adapted Physical Education Specialist ID Venessa Marcano 10/21/2024 7:42 AM EDT HEALTHCARE LAB Device ID [id number] 10/21/2024 7:42 AM EDT HEALTHCARE LAB Specimen Type POC Capillary 10/21/2024 7:42 AM EDT HEALTHCARE LAB Blood Capillary blood specimen / Unknown 10/18/2024 11:56 AM EDT 10/21/2024 7:42 AM EDT us Terrell Gautam MD LAB POINT OF CARE TE ST DOCKED DEVICE UNSOLICITED RESULTS Final Result Performing Organization Address City/[facility] Co de Phone Number [facility] [address] [place] [address] * (ABNORMAL) POCT glucose meter (10/18/2024 9:24 AM EDT) [facility] [address] POCT Glucose 322(H) 74 - 99 mg/dL [...] Comment 10/21/2024 7:42 AM EDT HEALTHCARE LAB Adapted Physical Education Specialist ID Emilia Alonso 7:42 AM EDT HEALTHCARE LAB Device ID [id number] 10/21/2024 7:42 AM EDT HEALTHCARE LAB Specimen Type POC Venous 10/21/2024 7:42 AM EDT HEALTHCARE LAB Blood Venous blood specimen / Unknown 10/18/2024 9:24 AM EDT 10/21/2024 7:42 AM EDT us Terrell Gautam MD LAB POINT OF CARE TE ST DOCKED DEVICE UNSOLICITED RESULTS Final Result Performing Organization Address City/[facility]/ZIP Co de Phone Number [facility] [address] [place] [address] * (ABNORMAL) POCT glucose meter (10/18/2024 7:36 AM EDT) [facility] [address] POCT Glucose 215(H) 74 - 99 mg/dL [...] Comment 10/18/2024 7:38 AM EDT HEALTHCARE LAB Adapted Physical Education Specialist ID Kizzy Godfrey 025 7:38 AM EDT HEALTHCARE LAB Device ID [id number] 10/18/2024 7:38 AM EDT [facility] Specimen Type POC Capillary 10/18/2024 7:38 AM EDT [facility] Blood Capillary blood specimen / Unknown 10/18/2024 7:36 AM EDT 10/18/2024 7:38 AM EDT us Terrell Gautam MD LAB POINT OF CARE TE ST DOCKED DEVICE UNSOLICITED RESULTS Final Result Performing Organization Address City/State/[facility] Co de Phone Number HEALTHCARE LAB [address] [place], [place] [id number] * (ABNORMAL) CBC (10/18/2024 2:09 AM EDT) [facility] [address] WBC Count 16.71(H) 3.70 - 10.30 10*3/uL [...] [facility] [address] [place] [address] * (ABNORMAL) Basic metabolic panel (10/18/2024 2:09 [...] BLOOD ORDERABLES Final Result Performing Organization Address City/[facility]/ZIP Co de Phone Number [facility] [address] [place] [address] * (ABNORMAL) Magnesium (10/18/2024 2:09 AM EDT) Magnesium, Plasma 1.8(L) 1.9 - 2.4 mg/dL 10/18/2024 2:53 AM EDT [facility] Blood Venous blood specimen / Unknown Venipuncture / Unknown 10/18/2024 2:09 AM EDT 10/18/2024 2:25 AM EDT Nirmal Cueto MD LAB BLOOD ORDERABLES Final Result [facility] [address] [place] [address] * Phosphorus (10/18/2024 2:09 AM EDT) Phosphorus, Plasma 3.7 2.5 - 4.5 mg/dL 10/18/2024 2:53 AM EDT [facility] Blood Venous blood specimen / Unknown Venipuncture / Unknown 10/18/2024 2:09 AM EDT 10/18/2024 2:25 AM EDT Nirmal Cueto MD LAB BLOOD ORDERABLES Final Result Performing Organization Address [facility] Co de Phone Number [facility] [address] [place] [address] * (ABNORMAL) Protime-INR (10/18/2024 2:09 AM EDT) Prothrombin Time 14.5(H) 12.0 - 14.3 sec LAB COAGULATION METHOD 10/18/2024 2:53 AM EDT [facility] INR 1.1 0.9 - 1.1 LAB COAGULATION METHOD 10/18/2024 2:53 AM EDT [facility] Blood Venous blood specimen / Unknown Venipuncture / Unknown 10/18/2024 2:09 AM EDT 10/18/2024 2:25 AM EDT Narrative [facility] - 10/18/2024 2:53 AM EDT OPTIMAL INR RANGES FOR PATIENT ON ORAL ANTICOAGULANT THERAPY Prevention of venous thromboembolism INR 2.0 to 3.0 In patients with heart disease: Atrial fibrillation INR 2.0 to 3.0 Valvular heart disease INR 2.0 to 3.0 Tissue heart valves INR 2.0 to 3.0 Mechanical prosthetic valves INR 2.5 to 3.5 Prevention of recurrent [place] INR 2.5 to 3.5 Nirmal Cueto MD LAB BLOOD ORDERABLES Final Result Performing Organization Address City/[facility]/ZIP Co de Phone Number [facility] [address] [place] [address] * (ABNORMAL) POCT glucose meter (10/18/2024 2:08 AM EDT) POCT Glucose 202(H) 74 - 99 mg/dL 10/18/2024 2:10 AM EDT [facility] Comment:Accuracy of a glucos e result [...] Comment 10/18/2024 2:10 AM EDT HEALTHCARE LAB Adapted Physical Education Specialist ID Jourdan Grimes II 10/18/2024 2:10 AM EDT HEALTHCARE LAB Device ID [id number] 10/18/2024 2:10 AM EDT HEALTHCARE LAB Specimen Type POC Capillary 10/18/2024 2:10 AM EDT HEALTHCARE LAB Blood Capillary blood specimen / Unknown 10/18/2024 2:08 AM EDT 10/18/2024 2:10 AM EDT us Terrell Gautam MD LAB POINT OF CARE TE ST DOCKED DEVICE UNSOLICITED RESULTS Final Result Performing Organization Address City/State/[facility] Co de Phone Number [facility] [address] [place] [address] * (ABNORMAL) POCT glucose meter (10/17/2024 10:07 PM EDT) [facility] [address] POCT Glucose 300(H) 74 - 99 mg/dL [...] Comment 10/17/2024 10:10 PM EDT HEALTHCARE LAB Adapted Physical Education Specialist ID Jourdan Grimes II 10/17/2024 10:10 PM EDT HEALTHCARE LAB Device ID [id number] 10/17/2024 10:10 PM EDT HEALTHCARE LAB Specimen Type POC Capillary 10/17/2024 10:10 PM EDT [facility] Blood Capillary blood specimen / Unknown 10/17/2024 10:07 PM EDT 10/17/2024 10:10 PM EDT us Terrell Gautam MD LAB POINT OF CARE TE ST DOCKED DEVICE UNSOLICITED RESULTS Final Result Performing Organization Address [facility] Co de Phone Number HEALTHCARE LAB [address] [place] [address] * (ABNORMAL) POCT glucose meter (10/17/2024 8:07 PM EDT) [facility] [address] POCT Glucose 391(H) 74 - 99 mg/dL [...] Comment 10/17/2024 8:10 PM EDT HEALTHCARE LAB Adapted Physical Education Specialist ID Cornelio WALTERS Jourdan 10/17/2024 8:10 PM EDT HEALTHCARE LAB Device ID [id number] 10/17/2024 8:10 PM EDT [facility] Specimen Type POC Capillary 10/17/2024 8:10 PM EDT [facility] Blood Capillary blood specimen / Unknown 10/17/2024 8:07 PM EDT 10/17/2024 8:10 PM EDT Terrell Gautam MD LAB POINT OF CARE TE ST DOCKED DEVICE UNSOLICITED RESULTS Final Result Performing Organization Address [facility] de Phone Number [facility] [address] [place] [address] * (ABNORMAL) POCT glucose meter (10/17/2024 4:01 PM EDT) [facility] [address] POCT Glucose 249(H) 74 - 99 mg/dL [...] 10/17/2024 4:03 PM EDT [facility] [employer]ed Physical Education Specialist ID Chelsieamanda Keisha 10/17/2024 4:03 PM EDT HEALTHCARE LAB Device ID [id number] 10/17/2024 4:03 PM EDT [facility] Specimen Type POC Capillary 10/17/2024 4:03 PM EDT HEALTHCARE LAB Blood Capillary blood specimen / Unknown 10/17/2024 4:01 PM EDT 10/17/2024 4:03 PM EDT us Terrell Gautam MD LAB POINT OF CARE TE ST DOCKED DEVICE UNSOLICITED RESULTS Final Result Performing Organization Address City/[facility]/ZIP Co de Phone Number [facility] [address] [place] [address] * (ABNORMAL) POCT glucose meter (10/17/2024 1:25 PM EDT) [facility] [address] POCT Glucose 225(H) 74 - 99 mg/dL [...] 10/17/2024 1:27 PM EDT [facility] [employer]ed Physical Education Specialist ID Kizzy Godfrey 025 1:27 PM EDT [facility] Device ID [id number] 10/17/2024 1:27 PM EDT HEALTHCARE LAB Specimen Type POC Capillary 10/17/2024 1:27 PM EDT HEALTHCARE LAB Blood Capillary blood specimen / Unknown 10/17/2024 1:25 PM EDT 10/17/2024 1:27 PM EDT us Terrell Gautam MD LAB POINT OF CARE TE ST DOCKED DEVICE UNSOLICITED RESULTS Final Result Performing Organization Address [facility] Co de Phone Number [facility] [address] [place] [address] * [place] Less than 1 Hour Intraoperative [...] Seconds 10/29/2024 7:28 AM EDT HEALTHCARE LAB Adapted Physical Education Specialist ID Donna Mcmillan 10/29/2024 7:28 AM EDT HEALTHCARE LAB ACT Device ID [id number] 10/29/2024 7:28 AM EDT HEALTHCARE LAB Comment [...] UNSOLICITED RESULTS Final Result Performing Organization Address City/[facility] Co de Phone Number HEALTHCARE LAB [address] LAB [address] [place] [address] * (ABNORMAL) Blood gas, arterial (10/17/2024 11:48 [...] 10/17/2024 11:53 AM EDT us Jenna Lopez CD TECHNICIAN LAB BLOOD ORDERABLES Final Re sult [facility] [address] [place] [address] * POCT ACT (10/17/2024 11:41 AM EDT) ACT+ (HIGH RANGE) 175 68 - 600 Seconds 10/29/2024 7:28 AM EDT [facility] Adapted Physical Education Specialist ID Oneyda Alicea 10/29/2024 7:28 AM EDT [facility] ACT Device ID [id number] 10/29/2024 7:28 AM EDT HEALTHCARE LAB Comment [...] UNSOLICITED RESULTS Final Result Performing Organization Address [facility] Co de Phone Number [facility] [address] [place] [address] [place] [address] * POCT ACT (10/17/2024 11:11 AM EDT) ACT+ (HIGH RANGE) 252 68 - 600 Seconds 10/29/2024 7:28 AM EDT HEALTHCARE LAB Adapted Physical Education Specialist ID Donna Mcmillan 10/29/2024 7:28 AM EDT HEALTHCARE LAB ACT Device ID [id number] 10/29/2024 7:28 AM EDT [facility] [...] UNSOLICITED RESULTS Final Result Performing Organization Address [facility] Co de Phone Number [facility] [address] [place], [place] [address] [address] [place] [address] * (ABNORMAL) Blood gas, arterial (10/17/2024 10:46 [...] 10/17/2024 10:54 AM EDT us Jenna Lopez CD TECHNICIAN LAB BLOOD ORDERABLES Final Re sult Performing Organization Address [facility] Co de Phone Number [facility] [address] [place] [address] * POCT ACT (10/17/2024 10:37 AM EDT) ACT+ (HIGH RANGE) 206 68 - 600 Seconds 10/29/2024 7:28 AM EDT HEALTHCARE LAB Adapted Physical Education Specialist ID Donna Mcmillan 10/29/2024 7:28 AM EDT [facility] ACT Device ID [id number] 10/29/2024 7:28 AM EDT [facility] Comment 10/29/2024 7:28 AM EDT [...] UNSOLICITED RESULTS Final Result Performing Organization Address [facility] de Phone Number [facility] [address] LAB [address] [place] [address] * Surgical Pathology Exam (10/17/2024 10:27 AM EDT) Case Report Surgical Pathology Case: [id number] Authorizing Provider: Terrell Gautam MD Collected: 10/17/2024 1027 Ordering Location: [facility] A OPERATING ROOM Received: 10/17/2024 [...] cm. The specimen is serially sectioned and compliance representative dealer sections are submitted in cassette A1. Cold Time: <1m Kenia Aceves 10/21/2024 10:16 AM EDT [facility] [...] MD LAB PATHOLOGY ORDERABLES Gwen grimaldo Result [facility] [address] [place] [address] * POCT ACT (10/17/2024 10:03 AM EDT) ACT+ (HIGH RANGE) 244 68 - 600 Seconds 10/29/2024 7:28 AM EDT [facility] Adapted Physical Education Specialist ID Donna Mcmillan 10/29/2024 7:28 AM EDT [facility] ACT Device ID [id number] 10/29/2024 7:28 AM EDT [facility] Comment 10/29/2024 7:28 AM EDT [facility] [...] ST DOCKED DEVICE UNSOLICITED RESULTS Final Result [facility] [address] LAB [address] [place] [address] * (ABNORMAL) Blood gas, arterial (10/17/2024 9:45 [...] [facility] [address] [place] [address] * (ABNORMAL) Blood gas, arterial (10/17/2024 8:47 [...] EDT 10/17/2024 8:58 AM EDT Jenna Lopez [facility] BLOOD ORDERABLES Final Re sult [facility] [address] [place] [address] * POCT ACT (10/17/2024 8:46 AM EDT) ACT+ (HIGH RANGE) 101 68 - 600 Seconds 10/29/2024 7:28 AM EDT HEALTHCARE LAB Adapted Physical Education Specialist ID Donna Mcmillan 10/29/2024 7:28 AM EDT HEALTHCARE LAB ACT Device ID [id number] 10/29/2024 7:28 AM EDT HEALTHCARE LAB Comment [...] UNSOLICITED RESULTS Final Result Performing Organization Address City/[facility]/ZIP Co de Phone Number [facility] [address] LAB [address] [place] [address] * Type and Screen (10/17/2024 7:19 AM [...] ORDERAB LES Final Result Performing Organization Address City/[facility]/ZIP Co de Phone Number BLOOD BANK [address] [place] [address] * (ABNORMAL) POCT glucose meter (10/17/2024 6:44 AM EDT) [facility] [address] POCT Glucose 178(H) 74 - 99 mg/dL [...] 10/17/2024 6:49 AM EDT [facility] Adapted Physical Education Specialist ID Hunter Burroughs 10/18/19 6:49 AM EDT [facility] Device ID [id number] 10/17/2024 6:49 AM EDT [facility] Specimen Type POC Capillary 10/17/2024 6:49 AM EDT [facility] Blood Capillary blood specimen / Unknown 10/17/2024 6:44 AM EDT 10/17/2024 6:49 AM EDT us Terrell Gautam MD LAB POINT OF CARE TE ST DOCKED DEVICE UNSOLICITED RESULTS Final Result [facility]ARE LAB [address] [place] [address] documented in this encounter Visit Diagnoses Diagnosis [...] as of this encounter Care Teams Director [employer] Relationship Specialty Start Date End Date Asad Victor MD [address] [place] [id number] PCP - General 10/07/22 documented as of this encounter
--- OUTSIDE RECORDS SUMMARY | 2024-11-05 21:45 | XMS_ITS | Encounter Summary ---
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 AM EDT [facility] Blood Capillary blood specimen / Unknown 11/14/2024 11:56 AM EDT 11/14/2024 11:57 AM EDT Nathaly Nowak MD LAB POINT OF CARE TE ST DOCKED DEVICE UNSOLICITED RESULTS Final Result Performing Organization Address City/[facility]/ZIP Co de Phone Number [facility]ARE [facility] [address] [place] [address] * (ABNORMAL) POCT glucose meter (11/14/2024 8:05 AM EDT) [facility] POCT Glucose 150(H) 74 - [...] Comment 11/14/2024 8:06 AM EDT [facility] Paper Products Inspector ID Estefani Sheth 11/14/2024 8:06 AM EDT [facility] Device ID [id number] 11/14/2024 8:06 AM EDT [facility] Specimen Type POC Capillary 11/14/2024 8:06 AM EDT [facility] Blood Capillary blood specimen / Unknown 11/14/2024 8:05 AM EDT 11/14/2024 8:06 AM EDT Nathaly Nowak MD LAB POINT OF CARE TE ST DOCKED DEVICE UNSOLICITED RESULTS Final Result Performing Organization Address City/[facility]/ZIP Co de Phone Number [facility] [address] [place] [address] * (ABNORMAL) POCT glucose meter (11/14/2024 3:53 [...] Comment 11/14/2024 3:55 AM EDT [facility] Paper Products Inspector ID Nelda Gerber 11/15/19 3:55 AM EDT [facility]ALTH[facility]ARE LAB Device ID [id number] 11/14/2024 3:55 AM EDT [facility] Specimen Type POC Capillary 11/14/2024 3:55 AM EDT [facility] Blood Capillary blood specimen / Unknown 11/14/2024 3:53 AM EDT 11/14/2024 3:55 AM EDT Nathaly Nowak MD LAB POINT OF CARE TE ST DOCKED DEVICE UNSOLICITED RESULTS Final Result [facility] [address] [place] [address] * (ABNORMAL) POCT glucose meter (11/13/2024 8:55 PM EDT) [facility] POCT Glucose 251(H) 74 - 99 mg/dL 11/13/2024 9:01 PM EDT [facility] Comment:Accuracy of a [...] Comment 11/13/2024 9:01 PM EDT [facility] Paper Products Inspector ID Nelda Gerber 11/14/19 9:01 PM EDT [facility]ALTHCARE LAB Device ID [id number] 11/13/2024 9:01 PM EDT [facility] Specimen Type POC Capillary 11/13/2024 9:01 PM EDT [facility] Blood Capillary blood specimen / Unknown 11/13/2024 8:55 PM EDT 11/13/2024 9:01 PM EDT Nathaly Nowak MD LAB POINT OF CARE TE ST DOCKED DEVICE UNSOLICITED RESULTS Final Result Performing Organization Address [facility] de Phone Number [facility] [address] [place] [address] * (ABNORMAL) POCT glucose meter (11/13/2024 5:16 PM EDT) [facility] POCT Glucose 149(H) 74 - [...] Comment 11/13/2024 5:17 PM EDT [facility] Paper Products Inspector ID Estefani Sheth 11/13/2024 5:17 PM EDT [facility]ALTH[facility]ARE LAB Device ID [id number] 11/13/2024 5:17 PM EDT [facility] Specimen Type POC Capillary 11/13/2024 5:17 PM EDT [facility] Blood Capillary blood specimen / Unknown 11/13/2024 5:16 PM EDT 11/13/2024 5:17 PM EDT Nathaly Nowak MD LAB POINT OF CARE TE ST DOCKED DEVICE UNSOLICITED RESULTS Final Result Performing Organization Address [facility] de Phone Number [facility] [address] [place] [address] * MS NEGATIVE PRESSURE WOUND THERAPY DME </= 50 [...] for testing. Comment 11/13/2024 12:00 PM EDT [facility] Paper Products Inspector ID Estefani Sheth 11/13/2024 12:00 PM EDT [facility] Device ID [id number] 11/13/2024 12:00 PM EDT [facility] Specimen Type POC Capillary 11/13/2024 12:00 PM EDT [facility] Blood Capillary blood specimen / Unknown 11/13/2024 11:58 AM EDT 11/13/2024 12:00 PM EDT Nathaly Nowak MD LAB POINT OF CARE TE ST DOCKED DEVICE UNSOLICITED RESULTS Final Result [facility] [address] [place] [address] * (ABNORMAL) POCT glucose meter (11/13/2024 8:23 [...] Comment 11/13/2024 8:24 AM EDT [facility] Paper Products Inspector ID Estefani Sheth 11/13/2024 8:24 AM EDT [facility] Device ID [id number] 11/13/2024 8:24 AM EDT [facility] Specimen Type POC Capillary 11/13/2024 8:24 AM EDT [facility] Blood Capillary blood specimen / Unknown 11/13/2024 8:23 AM EDT 11/13/2024 8:24 AM EDT Nathaly Nowak MD LAB POINT OF CARE TE ST DOCKED DEVICE UNSOLICITED RESULTS Final Result Performing Organization Address City/[facility] [[email or web address]] Co de Phone Number [facility] [address] [place] [address] * (ABNORMAL) Phosphorus, Plasma (11/13/2024 6:37 AM EDT) Phosphorus, Plasma 1.7(L) 2.5 - 4.5 mg/dL 11/13/2024 7:16 AM EDT [facility] Blood Venous blood specimen / Unknown Venipuncture / Unknown 11/13/2024 6:37 AM EDT 11/13/2024 6:44 AM EDT Nathaly Nowak MD LAB BLOOD ORDERABLES Final Resu lt [facility] [address] [place] [address] * Magnesium, Plasma (11/13/2024 6:37 AM EDT) Magnesium, Plasma 2.0 1.9 - 2.4 mg/dL 11/13/2024 7:16 AM EDT [facility] Blood Venous blood specimen / Unknown Venipuncture / Unknown 11/13/2024 6:37 AM EDT 11/13/2024 6:44 AM EDT us Nathlay Nowak MD LAB BLOOD ORDERABLES Final Resu lt [facility] [address] [place] [address] * (ABNORMAL) CBC W/O Differential (11/13/2024 6:37 AM EDT) WBC Count 11.72(H) 3.70 - 10.30 10*3/uL LAB HEMATOLOGY METHOD 11/13/2024 6:51 AM EDT [facility] RBC Count 2.88(L) 4.60 - 6.10 10*6/uL LAB HEMATOLOGY METHOD 11/13/2024 6:51 AM EDT [facility] HGB 8.5(L) 13.7 - 17.5 g/dL LAB HEMATOLOGY METHOD 11/13/2024 6:51 AM EDT [facility] HCT 26.4(L) 40.0 - 51.0 % LAB HEMATOLOGY METHOD 11/13/2024 6:51 AM EDT [facility] Platelet Count 398(H) 155 - 369 10*3/uL LAB HEMATOLOGY METHOD 11/13/2024 6:51 AM EDT [facility] MCV 92 79 - 98 fL LAB HEMATOLOGY METHOD 11/13/2024 6:51 AM EDT [facility] MCH 29.5 26.0 - 32.0 pg LAB HEMATOLOGY METHOD 11/13/2024 6:51 AM EDT [facility] MCHC 32.2 30.7 - 35.5 g/dL LAB HEMATOLOGY METHOD 11/13/2024 6:51 AM EDT [facility] RDW 13.6 11.5 - 14.5 % LAB HEMATOLOGY METHOD 11/13/2024 6:51 AM EDT [facility] MPV 8.9 8.8 - 12.5 fL LAB HEMATOLOGY METHOD 11/13/2024 6:51 AM EDT [facility] nRBC 0.0 <=0.0 per 100 WBCs LAB HEMATOLOGY METHOD 11/13/2024 6:51 AM EDT [facility] Blood Venous blood specimen / Unknown Venipuncture / Unknown 11/13/2024 6:37 AM EDT 11/13/2024 6:44 AM EDT us Nathaly Nowak MD LAB BLOOD ORDERABLES Final Resu lt [facility] [address] [place] [address] * (ABNORMAL) Basic Metabolic Panel, Plasma (11/13/2024 6:37 AM EDT) Glucose, Plasma 200(H) 74 - 99 mg/dL 11/13/2024 7:16 AM EDT [facility] BUN, Plasma 10 8 - 23 mg/dL 11/13/2024 7:16 AM EDT [facility] Creatinine, Plasma 0.68(L) 0.70 - 1.20 mg/dL 11/13/2024 7:16 AM EDT [facility] BUN/Creatinine Ratio 15 11/13/2024 7:16 AM EDT [facility] Sodium, Plasma 135(L) 136 - 145 mmol/L 11/13/2024 7:16 AM EDT [facility] Potassium, Plasma 3.9 3.6 - 4.9 mmol/L 11/13/2024 7:16 AM EDT [facility] Chloride, Plasma 107 97 - 107 mmol/L 11/13/2024 7:16 AM EDT [facility] CO2, Plasma 21(L) 22 - 29 mmol/L 11/13/2024 7:16 AM EDT [facility] Anion Gap 7 6 - 16 mmol/L 11/13/2024 7:16 AM EDT [facility] Total Calcium, Plasma 8.1(L) 8.9 - 10.2 mg/dL 11/13/2024 7:16 AM EDT [facility] eGFRcr 103.2 mL/min/1.7 3m*2 11/13/2024 7:16 AM EDT [facility] Comment:Reported eGFRcr in m L/min/1.73m2 is based the CKD-EPI 2020 equation that does not use a race coefficient. Blood Venous blood specimen / Unknown Venipuncture / Unknown 11/13/2024 6:37 AM EDT 11/13/2024 6:44 AM EDT Nathaly Nowak MD LAB BLOOD ORDERABLES Final Resu lt Performing Organization Address City/[facility]/ZIP Co de Phone Number [facility] [address] [place] [address] * (ABNORMAL) POCT glucose meter (11/12/2024 8:27 [...] Comment 11/12/2024 8:29 PM EDT [facility] Paper Products Inspector ID Nelda Gerber 11/13/19 8:29 PM EDT [facility]ALTH[facility]ARE LAB Device ID [id number] 11/12/2024 8:29 PM EDT [facility] Specimen Type POC Capillary 11/12/2024 8:29 PM EDT [facility] Blood Capillary blood specimen / Unknown 11/12/2024 8:27 PM EDT 11/12/2024 8:29 PM EDT Nathaly Nowak MD LAB POINT OF CARE TE ST DOCKED DEVICE UNSOLICITED RESULTS Final Result Performing Organization Address City/[facility]/ZIP Co de Phone Number [facility] [address] [place] [address] * (ABNORMAL) POCT glucose meter (11/12/2024 5:08 [...] Comment 11/12/2024 5:10 PM EDT [facility] Paper Products Inspector ID Braden Wade Collado 5:10 PM EDT [facility] Device ID [id number] 11/12/2024 5:10 PM EDT [facility] Specimen Type POC Capillary 11/12/2024 5:10 PM EDT [facility] Blood Capillary blood specimen / Unknown 11/12/2024 5:08 PM EDT 11/12/2024 5:10 PM EDT Nathaly Nowak MD LAB POINT OF CARE TE ST DOCKED DEVICE UNSOLICITED RESULTS Final Result Performing Organization Address [facility] de Phone Number [facility] [address] [place] [address] * (ABNORMAL) POCT glucose meter (11/12/2024 12:36 PM EDT) [facility] POCT Glucose 224(H) 74 - [...] Comment 11/12/2024 12:38 PM EDT [facility] Paper Products Inspector ID Braden Wade Collado 12:38 PM EDT [facility] LAB Device ID [id number] 11/12/2024 12:38 PM EDT [facility] Specimen Type POC Capillary 11/12/2024 12:38 PM EDT [facility] Blood Capillary blood specimen / Unknown 11/12/2024 12:36 PM EDT 11/12/2024 12:38 PM EDT Nathaly Nowak MD LAB POINT OF CARE TE ST DOCKED DEVICE UNSOLICITED RESULTS Final Result Performing Organization Address City/[facility] [[email or web address]] Co de Phone Number [facility] [address] [place] [address] * Clostridiodes (Clostridium) difficile PCR (11/12/2024 9:50 AM EDT) C difficile PCR toxin B gene DNA Result Not Detected Not Detected 11/12/2024 11:54 AM EDT [facility] Stool Rectum structure / Unknown Non-blood Collection / Unknown 11/12/2024 9:50 AM EDT 11/12/2024 10:04 AM EDT Narrative [facility] - 11/12/2024 11:54 AM [...] Nowak MD LAB MICROBIOLOGY - GENERAL [facility] Final Result [facility] [address] [place] [address] * Comprehensive GI Panel by PCR (11/12/2024 9:50 AM EDT) Campylobacter PCR Result Not Detected Not Detected 11/12/2024 2:47 PM EDT [facility] Plesiomonas shigelloides PCR Result Not Detected Not Detected 11/12/2024 2:47 PM EDT [facility] Salmonella PCR Result Not Detected Not Detected 11/12/2024 2:47 PM EDT [facility] Vibrio species PCR Result Not Detected Not Detected 11/12/2024 2:47 PM EDT [facility] Vibrio cholerae PCR Result Not Detected Not Detected 11/12/2024 2:47 PM EDT [facility] Yersinia enterocolitica PCR Result Not Detected Not Detected 11/12/2024 2:47 PM EDT [facility] Enteroaggregative E. coli (EAEC) PCR Result Not Detected Not Detected 11/12/2024 2:47 PM EDT [facility] Enteropathogenic E. coli (EPEC) PCR Result Not Detected Not Detected 11/12/2024 2:47 PM EDT [facility] Enterotoxigenic E. coli (ETEC) lt/st PCR Result Not Detected Not Detected 11/12/2024 2:47 PM EDT [facility] Shiga-like Toxin-Producing E.coli (STEC) stx1/stx2 PCR Resu Not Detected Not Detected 11/12/2024 2:47 PM EDT [facility] E coli 0157 PCR Result Not Detected Not Detected 11/12/2024 2:47 PM EDT [facility] Shigella/Enteroinvas tam E. coli (EIEC) PCR Result Not Detected Not Detected 11/12/2024 2:47 PM EDT [facility] Cryptosporidium PCR Result Not Detected Not Detected 11/12/2024 2:47 PM EDT [facility] Cyclospora cayetanensis PCR Result Not Detected Not Detected 11/12/2024 2:47 PM EDT [facility] Entamoeba histolytica PCR Result Not Detected Not Detected 11/12/2024 2:47 PM EDT [facility] Giardia duodenalis (aka Giardia lamblia) PCR Result Not Detected Not Detected 11/12/2024 2:47 PM EDT [facility] Adenovirus F 40/41 PCR Result Not Detected Not Detected 11/12/2024 2:47 PM EDT [facility] Astrovirus PCR Result Not Detected Not Detected 11/12/2024 2:47 PM EDT [facility] Norovirus GI/GII PCR Result Not Detected Not Detected 11/12/2024 2:47 PM EDT [facility] Rotavirus A PCR Result Not Detected Not Detected 11/12/2024 2:47 PM EDT [facility] Sapovirus PCR Result Not Detected Not Detected 11/12/2024 2:47 PM EDT [facility] Stool Rectum structure / Unknown Non-blood Collection / Unknown 11/12/2024 9:50 AM EDT 11/12/2024 10:04 AM EDT [facility] - 11/12/2024 2:47 PM EDT [...] Nathaly Nowak MD LAB MICROBIOLOGY - GENERAL [facility] Final Result Performing Organization Address [facility] [[email or web address]] Co de Phone Number [facility] [address] [place] [address] * C-reactive protein (11/12/2024 9:48 AM EDT) Pathologist [facility] CRP, Plasma <3.0 <=8.0 mg/L 11/12/2024 10:28 AM EDT [facility] Blood Venous blood specimen / Unknown Venipuncture / Unknown 11/12/2024 9:48 AM EDT 11/12/2024 9:59 AM EDT Narrative [facility] - 11/12/2024 10:28 AM EDT This CRP test is appropriate for assessment of infection, systemic inflammation and/or tissue injury. To assess cardiovascular disease risk order high sensitivity CRP (CRPH). Nathaly Nowak MD LAB BLOOD ORDERABLES Final Resu lt Performing Organization Address [facility]/ZIP Co de Phone Number [facility] [address] [place] [address] * (ABNORMAL) POCT glucose meter (11/12/2024 8:20 AM EDT) Pathologist [facility] POCT Glucose 138(H) 74 - 99 mg/dL 11/12/2024 8:21 AM EDT [facility] Comment:Accuracy of a glucos [...] Comment 11/12/2024 8:21 AM EDT [facility]ALTH[facility]ARE [facility] Paper Products Inspector ID Wade Feliciano 8:21 AM EDT [facility]ALTHCARE LAB Device ID [id number] 11/12/2024 8:21 AM EDT [facility] Specimen Type POC Capillary 11/12/2024 8:21 AM EDT [facility] Blood Capillary blood specimen / Unknown 11/12/2024 8:20 AM EDT 11/12/2024 8:21 AM EDT Nathaly Nowak MD LAB POINT OF CARE TE ST DOCKED DEVICE UNSOLICITED RESULTS Final Result Performing Organization Address City/[facility]/ZIP Co de Phone Number [facility] [address] [place] [address] * (ABNORMAL) POCT glucose meter (11/11/2024 8:18 PM EDT) [facility] POCT Glucose 248(H) 74 - [...] Comment 11/11/2024 8:20 PM EDT [facility] Paper Products Inspector ID Nelda Gerber 11/12/19 8:20 PM EDT [facility] LAB Device ID [id number] 11/11/2024 8:20 PM EDT [facility] Specimen Type POC Capillary 11/11/2024 8:20 PM EDT [facility] Blood Capillary blood specimen / Unknown 11/11/2024 8:18 PM EDT 11/11/2024 8:20 PM EDT us Nathaly Nowak MD LAB POINT OF CARE TE ST DOCKED DEVICE UNSOLICITED RESULTS Final Result [facility] [address] [place] [address] * (ABNORMAL) POCT glucose meter (11/11/2024 5:59 PM EDT) [facility] POCT Glucose 147(H) 74 - 99 mg/dL [...] 11/11/2024 6:01 PM EDT [facility] Paper Products Inspector ID Wade Feliciano 6:01 PM EDT [facility] Device ID [id number] 11/11/2024 6:01 PM EDT [facility] Specimen Type POC Capillary 11/11/2024 6:01 PM EDT [facility] Blood Capillary blood specimen / Unknown 11/11/2024 5:59 PM EDT 11/11/2024 6:01 PM EDT Nathaly Nowak MD LAB POINT OF CARE TE ST DOCKED DEVICE UNSOLICITED RESULTS Final Result [facility] [address] [place] [address] * POCT glucose meter (11/11/2024 5:20 PM EDT) [facility] POCT Glucose 84 74 - 99 [...] 11/11/2024 5:22 PM EDT [facility] Paper Products Inspector ID Wade Feliciano 5:22 PM EDT [facility] Device ID [id number] 11/11/2024 5:22 PM EDT [facility] Specimen Type POC Capillary 11/11/2024 5:22 PM EDT [facility] Blood Capillary blood specimen / Unknown 11/11/2024 5:20 PM EDT 11/11/2024 5:22 PM EDT Nathaly Nowak MD LAB POINT OF CARE TE ST DOCKED DEVICE UNSOLICITED RESULTS Final Result [facility] [address] [place] [address] * MS NEGATIVE PRESSURE WOUND THERAPY DME >50 SQ [...] Comment 11/11/2024 12:10 PM EDT [facility] Paper Products Inspector ID Wade Feliciano 12:10 PM EDT [facility] LAB Device ID [id number] 11/11/2024 12:10 PM EDT [facility] Specimen Type POC Capillary 11/11/2024 12:10 PM EDT [facility] Blood Capillary blood specimen / Unknown 11/11/2024 12:08 PM EDT 11/11/2024 12:10 PM EDT Nathaly Nowak MD LAB POINT OF CARE TE ST DOCKED DEVICE UNSOLICITED RESULTS Final Result Performing Organization Address City/[facility]/ZIP Co de Phone Number [facility] [address] [place] [address] * (ABNORMAL) POCT glucose meter (11/11/2024 9:08 [...] Comment 11/11/2024 9:09 AM EDT [facility] Paper Products Inspector ID Wade Feliciano 9:09 AM EDT [facility] LAB Device ID [id number] 11/11/2024 9:09 AM EDT [facility] Specimen Type POC Capillary 11/11/2024 9:09 AM EDT [facility] Blood Capillary blood specimen / Unknown 11/11/2024 9:08 AM EDT 11/11/2024 9:09 AM EDT Nathaly Nowak MD LAB POINT OF CARE TE ST DOCKED DEVICE UNSOLICITED RESULTS Final Result Performing Organization Address City/[facility]/ZIP Co de Phone Number [facility] [address] [place] [address] * POCT glucose meter (11/11/2024 8:27 AM EDT) [facility] POCT Glucose 87 74 - [...] Comment 11/11/2024 8:28 AM EDT [facility] Paper Products Inspector ID Wade Feliciano 8:28 AM EDT [facility] Device ID [id number] 11/11/2024 8:28 AM EDT [facility] Specimen Type POC Capillary 11/11/2024 8:28 AM EDT [facility] Blood Capillary blood specimen / Unknown 11/11/2024 8:27 AM EDT 11/11/2024 8:28 AM EDT us Nathaly Nowak MD LAB POINT OF CARE TE ST DOCKED DEVICE UNSOLICITED RESULTS Final Result [facility] [address] [place] [address] * (ABNORMAL) Basic Metabolic Panel, Plasma (11/11/2024 1:12 AM EDT) [facility] Glucose, Plasma 122(H) 74 - 99 mg/dL 11/11/2024 1:12 AM EDT [facility] BUN, Plasma 10 8 - 23 mg/dL 11/11/2024 1:12 AM EDT [facility] Creatinine, Plasma 0.82 0.70 - 1.20 mg/dL 11/11/2024 1:12 AM EDT [facility] BUN/Creatinine Ratio 12 11/11/2024 1:12 AM EDT [facility] Sodium, Plasma 137 136 - 145 mmol/L 11/11/2024 1:12 AM EDT [facility] Potassium, Plasma 3.9 3.6 - 4.9 mmol/L 11/11/2024 1:12 AM EDT [facility] Chloride, Plasma 110(H) 97 - 107 mmol/L 11/11/2024 1:12 AM EDT [facility] CO2, Plasma 20(L) 22 - 29 mmol/L 11/11/2024 1:12 AM EDT [facility] Anion Gap 7 6 - 16 mmol/L 11/11/2024 1:12 AM EDT [facility] Total Calcium, Plasma 7.6(L) 8.9 - 10.2 mg/dL 11/11/2024 1:12 AM EDT [facility] eGFRcr 97.5 mL/min/1.7 3m*2 11/11/2024 1:12 AM EDT [facility] Comment:Reported eGFRcr in m L/min/1.73m2 is based the CKD-EPI 2020 equation that does not use a race coefficient. Blood Venous blood specimen / Unknown 11/11/2024 12:42 AM EDT us Nathaly Nowak MD LAB BLOOD ORDERABLES Final Resu lt [facility] [address] [place] [address] * (ABNORMAL) CBC W/O Differential (11/11/2024 12:56 AM EDT) WBC Count 11.83(H) 3.70 - 10.30 10*3/uL LAB HEMATOLOGY METHOD 11/11/2024 12:56 AM EDT [facility] RBC Count 2.97(L) 4.60 - 6.10 10*6/uL LAB HEMATOLOGY METHOD 11/11/2024 12:56 AM EDT [facility] HGB 8.9(L) 13.7 - 17.5 g/dL LAB HEMATOLOGY METHOD 11/11/2024 12:56 AM EDT [facility] HCT 27.2(L) 40.0 - 51.0 % LAB HEMATOLOGY METHOD 11/11/2024 12:56 AM EDT [facility] Platelet Count 444(H) 155 - 369 10*3/uL LAB HEMATOLOGY METHOD 11/11/2024 12:56 AM EDT [facility] MCV 92 79 - 98 fL LAB HEMATOLOGY METHOD 11/11/2024 12:56 AM EDT [facility] MCH 30.0 26.0 - 32.0 pg LAB HEMATOLOGY METHOD 11/11/2024 12:56 AM EDT [facility] MCHC 32.7 30.7 - 35.5 g/dL LAB HEMATOLOGY METHOD 11/11/2024 12:56 AM EDT [facility] RDW 13.3 11.5 - 14.5 % LAB HEMATOLOGY METHOD 11/11/2024 12:56 AM EDT [facility] MPV 9.0 8.8 - 12.5 fL LAB HEMATOLOGY METHOD 11/11/2024 12:56 AM EDT [facility] nRBC 0.0 <=0.0 per 100 WBCs LAB HEMATOLOGY METHOD 11/11/2024 12:56 AM EDT [facility] Blood Venous blood specimen / Unknown 11/11/2024 12:42 AM EDT us Nathaly Nowak MD LAB BLOOD ORDERABLES Final Resu lt [facility] [address] [place] [address] * (ABNORMAL) POCT glucose meter (11/10/2024 8:25 [...] Comment 11/10/2024 8:28 PM EDT [facility] Paper Products Inspector ID Nelda Gerber 11/11/19 8:28 PM EDT [facility] Device ID [id number] 11/10/2024 8:28 PM EDT [facility] Specimen Type POC Capillary 11/10/2024 8:28 PM EDT [facility] Blood Capillary blood specimen / Unknown 11/10/2024 8:25 PM EDT 11/10/2024 8:28 PM EDT Nathaly Nowak MD LAB POINT OF CARE TE ST DOCKED DEVICE UNSOLICITED RESULTS Final Result Performing Organization Address [facility] [[email or web address]] Co de Phone Number [facility] [address] [place] [address] * (ABNORMAL) POCT glucose meter (11/10/2024 4:45 [...] Comment 11/10/2024 4:47 PM EDT [facility]ALTHCARE LAB Paper Products Inspector ID Esperanza Parks 11/10/2024 4:47 PM EDT HEALTHCARE LAB Device ID [id number] 11/10/2024 4:47 PM EDT [facility] Specimen Type POC Capillary 11/10/2024 4:47 PM EDT [facility] Blood Capillary blood specimen / Unknown 11/10/2024 4:45 PM EDT 11/10/2024 4:47 PM EDT us Nathaly Nowak MD LAB POINT OF CARE TE ST DOCKED DEVICE UNSOLICITED RESULTS Final Result Performing Organization Address City/[facility] [[email or web address]] Co de Phone Number [facility] [address] [place] [address] * (ABNORMAL) POCT glucose meter (11/10/2024 12:13 [...] Comment 11/10/2024 12:14 PM EDT HEALTHCARE LAB Paper Products Inspector ID Esperanza Parks 11/10/2024 12:14 PM EDT HEALTHCARE LAB Device ID [id number] 11/10/2024 12:14 PM EDT [facility]ARE LAB Specimen Type POC Capillary 11/10/2024 12:14 PM EDT [facility] Blood Capillary blood specimen / Unknown 11/10/2024 12:13 PM EDT 11/10/2024 12:14 PM EDT us Nathaly Nowak MD LAB POINT OF CARE TE ST DOCKED DEVICE UNSOLICITED RESULTS Final Result Performing Organization Address City/[facility]/ZIP Co de Phone Number [facility]CARE [facility] [address] [place] [address] * Vancomycin, Peak, Plasma Please draw ~2 hours after 0800 dose of vancomycin finishes infusing. Consider obtaining level via peripheral stick. If peripheral stick is not feasible, please ensure that line is flushed well prior to drawing level. Than... (11/10/2024 10:56 AM EDT) Vancomycin, Peak, Plasma 23.8 20.0 - 40.0 ug/mL 11/10/2024 11:25 AM EDT [facility] Blood Venous blood specimen / Unknown Venipuncture / Unknown 11/10/2024 10:56 AM EDT 11/10/2024 11:00 AM EDT Narrative [facility] - 11/10/2024 11:25 AM EDT Therapeutic Peak level: 20-40ug/mL Supra-therapeutic Peak level: >40 ug/mL us Abigail Seay MD LAB BLOOD ORDERABLES Final Res ult [facility] [address] [place] [address] * (ABNORMAL) POCT glucose meter (11/10/2024 8:03 [...] Comment 11/10/2024 8:04 AM EDT [facility]ALTHCARE LAB Paper Products Inspector ID Esperanza Parks 11/10/2024 8:04 AM EDT HEALTHCARE LAB Device ID [id number] 11/10/2024 8:04 AM EDT [facility]ARE [facility] Specimen Type POC Capillary 11/10/2024 8:04 AM EDT [facility] Blood Capillary blood specimen / Unknown 11/10/2024 8:03 AM EDT 11/10/2024 8:04 AM EDT us Nathaly Nowak MD LAB POINT OF CARE TE ST DOCKED DEVICE UNSOLICITED RESULTS Final Result Performing Organization Address City/[facility] [[email or web address]] Co de Phone Number [facility] [address] [place] [phone] * Vancomycin, Trough, Plasma Please draw ~30 minutes prior to dose due at 0800 on 11/10. Please do NOThold dose awaiting level to return. Consider obtaining level via peripheral stick. If peripheral stick is not feasible, please ensure that line is... (11/10/2024 7:27 AM EDT) Vancomycin, Trough, Plasma 16.2 10.0 - 20.0 ug/mL 11/10/2024 8:24 AM EDT [facility] Blood Venous blood specimen / Unknown Venipuncture / Unknown 11/10/2024 7:27 AM EDT 11/10/2024 7:51 AM EDT Narrative [facility] - 11/10/2024 8:24 AM EDT Therapeutic Trough level: 10-20ug/mL Supra-therapeutic Trough level: >20 ug/mL us Abigail Seay MD LAB BLOOD ORDERABLES Final Res ult [facility] [address] [place] [address] * (ABNORMAL) CBC and Differential (11/10/2024 12:31 AM EDT) WBC Count 10.80(H) 3.70 - 10.30 10*3/uL LAB HEMATOLOGY METHOD 11/10/2024 12:53 AM EDT [facility] RBC Count 3.06(L) 4.60 - 6.10 10*6/uL LAB HEMATOLOGY METHOD 11/10/2024 12:53 AM EDT [facility] HGB 9.1(L) 13.7 - 17.5 g/dL LAB HEMATOLOGY METHOD 11/10/2024 12:53 AM EDT [facility] HCT 28.0(L) 40.0 - 51.0 % LAB HEMATOLOGY METHOD 11/10/2024 12:53 AM EDT [facility] Platelet Count 501(H) 155 - 369 10*3/uL LAB HEMATOLOGY METHOD 11/10/2024 12:53 AM EDT [facility] MCV 92 79 - 98 fL LAB HEMATOLOGY METHOD 11/10/2024 12:53 AM EDT [facility] MCH 29.7 26.0 - 32.0 pg LAB HEMATOLOGY METHOD 11/10/2024 12:53 AM EDT [facility] MCHC 32.5 30.7 - 35.5 g/dL LAB HEMATOLOGY METHOD 11/10/2024 12:53 AM EDT [facility] RDW 13.2 11.5 - 14.5 % LAB HEMATOLOGY METHOD 11/10/2024 12:53 AM EDT [facility] MPV 8.8 8.8 - 12.5 fL LAB HEMATOLOGY METHOD 11/10/2024 12:53 AM EDT [facility] nRBC 0.0 <=0.0 per 100 WBCs LAB HEMATOLOGY METHOD 11/10/2024 12:53 AM EDT [facility] Differential Type Automated LAB HEMATOLOGY METHOD 11/10/2024 12:53 AM EDT [facility] Neutrophils % 77 % LAB HEMATOLOGY METHOD 11/10/2024 12:53 AM EDT [facility] Lymphocytes % 13 % LAB HEMATOLOGY METHOD 11/10/2024 12:53 AM EDT [facility] Monocytes % 8 % LAB HEMATOLOGY METHOD 11/10/2024 12:53 AM EDT [facility] Eosinophils % 1 % LAB HEMATOLOGY METHOD 11/10/2024 12:53 AM EDT [facility] Basophils % 0 % LAB HEMATOLOGY METHOD 11/10/2024 12:53 AM EDT [facility] Immature Granulocytes % 1 % LAB HEMATOLOGY METHOD 11/10/2024 12:53 AM EDT [facility] Neutrophils Absolute 8.32(H) 1.60 - 6.10 10*3/uL LAB HEMATOLOGY METHOD 11/10/2024 12:53 AM EDT [facility] Lymphocytes Absolute 1.40 1.20 - 3.90 10*3/uL LAB HEMATOLOGY METHOD 11/10/2024 12:53 AM EDT [facility] Monocytes Absolute 0.89 0.30 - 0.90 10*3/uL LAB HEMATOLOGY METHOD 11/10/2024 12:53 AM EDT [facility] Eosinophils Absolute 0.09 0.00 - 0.50 10*3/uL LAB HEMATOLOGY METHOD 11/10/2024 12:53 AM EDT [facility] Basophils Absolute 0.04 0.00 - 0.10 10*3/uL LAB HEMATOLOGY METHOD 11/10/2024 12:53 AM EDT [facility] Immature Granulocytes Absolute 0.06 0.00 - 0.06 10*3/uL LAB HEMATOLOGY METHOD 11/10/2024 12:53 AM EDT [facility] Blood Venous blood specimen / Unknown Venipuncture / Unknown 11/10/2024 12:31 AM EDT 11/10/2024 12:37 AM EDT Narrative [facility] - 11/10/2024 12:53 AM EDT Therapeutic decision making should be based on absolute values, rather than percentages. us Nathaly Nowak MD LAB BLOOD ORDERABLES Final Resu lt [facility] [address] [place] [address] * (ABNORMAL) Comprehensive Metabolic Panel, Plasma (11/10/2024 12:31 AM EDT) Pathologist [facility] Glucose, Plasma 185(H) 74 - 99 mg/dL 11/10/2024 1:05 AM EDT [facility] BUN, Plasma 9 8 - 23 mg/dL 11/10/2024 1:05 AM EDT [facility] Creatinine, Plasma 0.72 0.70 - 1.20 mg/dL 11/10/2024 1:05 AM EDT [facility] BUN/Creatinine Ratio 13 11/10/2024 1:05 AM EDT [facility] Sodium, Plasma 135(L) 136 - 145 mmol/L 11/10/2024 1:05 AM EDT [facility] Potassium, Plasma 4.0 3.6 - 4.9 mmol/L 11/10/2024 1:05 AM EDT [facility] Chloride, Plasma 106 97 - 107 mmol/L 11/10/2024 1:05 AM EDT [facility] CO2, Plasma 19(L) 22 - 29 mmol/L 11/10/2024 1:05 AM EDT [facility] Anion Gap 10 6 - 16 mmol/L 11/10/2024 1:05 AM EDT [facility] Total Calcium, Plasma 7.8(L) 8.9 - 10.2 mg/dL 11/10/2024 1:05 AM EDT [facility] Total Protein 5.6(L) 6.3 - 7.9 g/dL 11/10/2024 1:05 AM EDT [facility] Albumin, Plasma 3.1(L) 3.5 - 5.2 g/dL 11/10/2024 1:05 AM EDT [facility] AST, Plasma 33 10 - 50 U/L 11/10/2024 1:05 AM EDT [facility] ALT, Plasma 25 10 - 50 U/L 11/10/2024 1:05 AM EDT [facility] Alkaline Phosphatase, Plasma 108 40 - 115 U/L 11/10/2024 1:05 AM EDT [facility] Total Bilirubin, Plasma <0.2(L) 0.2 - 1.1 mg/dL 11/10/2024 1:05 AM EDT [facility] eGFRcr 101.4 mL/min/1.7 3m*2 11/10/2024 1:05 AM EDT [facility] Comment:Reported eGFRcr in m L/min/1.73m2 is based the CKD-EPI 2020 equation that does not use a race coefficient. Blood Venous blood specimen / Unknown Venipuncture / Unknown 11/10/2024 12:31 AM EDT 11/10/2024 12:37 AM EDT Nathaly Nowak MD LAB BLOOD ORDERABLES Final Resu lt Performing Organization Address City/[facility]/ZIP Co de Phone Number [facility] [address] [place] [address] * (ABNORMAL) POCT glucose meter (11/09/2024 8:04 [...] Comment 11/09/2024 8:06 PM EDT [facility]ALTHCARE LAB Paper Products Inspector ID Maximiliano Hansen II 11/09/2024 8:06 PM EDT HEALTHCARE LAB Device ID [id number] 11/09/2024 8:06 PM EDT [facility]ARE [facility] Specimen Type POC Capillary 11/09/2024 8:06 PM EDT [facility] Blood Capillary blood specimen / Unknown 11/09/2024 8:04 PM EDT 11/09/2024 8:06 PM EDT us Nathaly Nowak MD LAB POINT OF CARE TE ST DOCKED DEVICE UNSOLICITED RESULTS Final Result Performing Organization Address City/[facility] [[email or web address]] Co de Phone Number [facility] [address] [place] [address] * (ABNORMAL) POCT glucose meter (11/09/2024 4:36 [...] Comment 11/09/2024 4:38 PM EDT [facility]ALTH[facility]ARE [facility] Paper Products Inspector ID Kristian Sosa 11/09/2024 4:38 PM EDT HEALTH[facility]ARE LAB Device ID [id number] 11/09/2024 4:38 PM EDT [facility]ARE [facility] Specimen Type POC Capillary 11/09/2024 4:38 PM EDT [facility] Blood Capillary blood specimen / Unknown 11/09/2024 4:36 PM EDT 11/09/2024 4:38 PM EDT Nathaly Nowak MD LAB POINT OF CARE TE ST DOCKED DEVICE UNSOLICITED RESULTS Final Result Performing Organization Address City/State/[facility] [[email or web address]] Co de Phone Number [facility]ARE [facility] [address] [place] [address] * PICC SINGLE LUMEN ([employer] LINK) (11/09/2024 1:11 PM EDT) Narrative Estefani Barrzaa RN - 11/09/2024 1:11 PM EDT Estefani Barraza RN 11/09/2024 1:12 PM Insert PICC line Date/Time: 11/09/2024 1:11 PM Performed by: Estefani Barraza RN Authorized by: Nathaly Nowak MD [place] Protocol: Verbal consent obtained?: Yes Written consent [...] selection rationale: Left pacemaker Catheter Lot #: [id number] 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: [employer] Catheter placed: Single lumen Catheter size: 4 [...] Comment 11/09/2024 11:51 AM EDT HEALTHCARE LAB Paper Products Inspector ID Kristian Sosa 11/09/2024 11:51 AM EDT [facility] Device ID [id number] 11/09/2024 11:51 AM EDT [facility]ALTHCARE LAB Specimen Type POC Capillary 11/09/2024 11:51 AM EDT [facility]ARE [facility] Blood Capillary blood specimen / Unknown 11/09/2024 11:50 AM EDT 11/09/2024 11:51 AM EDT Nathaly Nowak MD LAB POINT OF CARE TE ST DOCKED DEVICE UNSOLICITED RESULTS Final Result Performing Organization Address City/[facility] [[email or web address]] Co de Phone Number [facility] [address] [place] [address] * (ABNORMAL) POCT glucose meter (11/09/2024 8:14 AM EDT) [facility] POCT Glucose 153(H) 74 - [...] Comment 11/09/2024 8:15 AM EDT HEALTHCARE [facility] Paper Products Inspector ID Kristian Sosa 11/09/2024 8:15 AM EDT HEALTHCARE LAB Device ID [id number] 11/09/2024 8:15 AM EDT [facility]ALTH[facility]ARE [facility] Specimen Type POC Capillary 11/09/2024 8:15 AM EDT [facility] Blood Capillary blood specimen / Unknown 11/09/2024 8:14 AM EDT 11/09/2024 8:[address] [facility] POINT OF CARE TE ST DOCKED DEVICE UNSOLICITED RESULTS Final Result Performing Organization Address City/[facility] [[email or web address]] Co de Phone Number [facility] [address] [place] [address] * (ABNORMAL) CBC and Differential (11/09/2024 4:15 AM EDT) WBC Count 10.27 3.70 - 10.30 10*3/uL LAB HEMATOLOGY METHOD 11/09/2024 4:26 AM EDT [facility] RBC Count 3.14(L) 4.60 - 6.10 10*6/uL LAB HEMATOLOGY METHOD 11/09/2024 4:26 AM EDT [facility] HGB 9.2(L) 13.7 - 17.5 g/dL LAB HEMATOLOGY METHOD 11/09/2024 4:26 AM EDT [facility] HCT 28.3(L) 40.0 - 51.0 % LAB HEMATOLOGY METHOD 11/09/2024 4:26 AM EDT [facility] Platelet Count 468(H) 155 - 369 10*3/uL LAB HEMATOLOGY METHOD 11/09/2024 4:26 AM EDT [facility] MCV 90 79 - 98 fL LAB HEMATOLOGY METHOD 11/09/2024 4:26 AM EDT [facility] MCH 29.3 26.0 - 32.0 pg LAB HEMATOLOGY METHOD 11/09/2024 4:26 AM EDT [facility] MCHC 32.5 30.7 - 35.5 g/dL LAB HEMATOLOGY METHOD 11/09/2024 4:26 AM EDT [facility] RDW 13.1 11.5 - 14.5 % LAB HEMATOLOGY METHOD 11/09/2024 4:26 AM EDT [facility] MPV 8.7(L) 8.8 - 12.5 fL LAB HEMATOLOGY METHOD 11/09/2024 4:26 AM EDT [facility] nRBC 0.0 <=0.0 per 100 WBCs LAB HEMATOLOGY METHOD 11/09/2024 4:26 AM EDT [facility] Differential Type Automated LAB HEMATOLOGY METHOD 11/09/2024 4:26 AM EDT [facility] Neutrophils % 77 % LAB HEMATOLOGY METHOD 11/09/2024 4:26 AM EDT [facility] Lymphocytes % 13 % LAB HEMATOLOGY METHOD 11/09/2024 4:26 AM EDT [facility] Monocytes % 8 % LAB HEMATOLOGY METHOD 11/09/2024 4:26 AM EDT [facility] Eosinophils % 1 % LAB HEMATOLOGY METHOD 11/09/2024 4:26 AM EDT [facility] Basophils % 0 % LAB HEMATOLOGY METHOD 11/09/2024 4:26 AM EDT [facility] Immature Granulocytes % 1 % LAB HEMATOLOGY METHOD 11/09/2024 4:26 AM EDT [facility] Neutrophils Absolute 7.97(H) 1.60 - 6.10 10*3/uL LAB HEMATOLOGY METHOD 11/09/2024 4:26 AM EDT [facility] Lymphocytes Absolute 1.32 1.20 - 3.90 10*3/uL LAB HEMATOLOGY METHOD 11/09/2024 4:26 AM EDT [facility] Monocytes Absolute 0.83 0.30 - 0.90 10*3/uL LAB HEMATOLOGY METHOD 11/09/2024 4:26 AM EDT [facility] Eosinophils Absolute 0.07 0.00 - 0.50 10*3/uL LAB HEMATOLOGY METHOD 11/09/2024 4:26 AM EDT [facility] Basophils Absolute 0.03 0.00 - 0.10 10*3/uL LAB HEMATOLOGY METHOD 11/09/2024 4:26 AM EDT [facility] Immature Granulocytes Absolute 0.05 0.00 - 0.06 10*3/uL LAB HEMATOLOGY METHOD 11/09/2024 4:26 AM EDT [facility] Blood Venous blood specimen / Unknown Venipuncture / Unknown 11/09/2024 4:15 AM EDT 11/09/2024 4:18 AM EDT Narrative [facility] - 11/09/2024 4:26 AM EDT Therapeutic decision making should be based on absolute values, rather than percentages. us Nathaly Nowak MD LAB BLOOD ORDERABLES Final Resu lt [facility] [address] [place] [address] * (ABNORMAL) Comprehensive Metabolic Panel, Plasma (11/09/2024 4:15 AM EDT) Glucose, Plasma 171(H) 74 - 99 mg/dL 11/09/2024 4:47 AM EDT [facility] BUN, Plasma 9 8 - 23 mg/dL 11/09/2024 4:47 AM EDT [facility] Creatinine, Plasma 0.67(L) 0.70 - 1.20 mg/dL 11/09/2024 4:47 AM EDT [facility] BUN/Creatinine Ratio 13 11/09/2024 4:47 AM EDT [facility] Sodium, Plasma 134(L) 136 - 145 mmol/L 11/09/2024 4:47 AM EDT [facility] Potassium, Plasma 4.1 3.6 - 4.9 mmol/L 11/09/2024 4:47 AM EDT [facility] Chloride, Plasma 104 97 - 107 mmol/L 11/09/2024 4:47 AM EDT [facility] CO2, Plasma 21(L) 22 - 29 mmol/L 11/09/2024 4:47 AM EDT [facility] Anion Gap 9 6 - 16 mmol/L 11/09/2024 4:47 AM EDT [facility] Total Calcium, Plasma 8.4(L) 8.9 - 10.2 mg/dL 11/09/2024 4:47 AM EDT [facility] Total Protein 5.8(L) 6.3 - 7.9 g/dL 11/09/2024 4:47 AM EDT [facility] Albumin, Plasma 3.2(L) 3.5 - 5.2 g/dL 11/09/2024 4:47 AM EDT [facility] AST, Plasma 18 10 - 50 U/L 11/09/2024 4:47 AM EDT [facility] ALT, Plasma 17 10 - 50 U/L 11/09/2024 4:47 AM EDT [facility] Alkaline Phosphatase, Plasma 110 40 - 115 U/L 11/09/2024 4:47 AM EDT [facility] Total Bilirubin, Plasma <0.2(L) 0.2 - 1.1 mg/dL 11/09/2024 4:47 AM EDT [facility] eGFRcr 103.6 mL/min/1.7 3m*2 11/09/2024 4:47 AM EDT [facility] Comment:Reported eGFRcr in m L/min/1.73m2 is based the CKD-EPI 2020 equation that does not use a race coefficient. Blood Venous blood specimen / Unknown Venipuncture / Unknown 11/09/2024 4:15 AM EDT 11/09/2024 4:18 AM EDT us Nathaly Nowak MD LAB BLOOD ORDERABLES Final Resu lt [facility] [address] [place] [address] * (ABNORMAL) POCT glucose meter (11/09/2024 3:30 AM EDT) [facility] POCT Glucose 160(H) 74 - [...] Comment 11/09/2024 3:31 AM EDT HEALTHCARE LAB Paper Products Inspector ID Maximiliano Hansen II 11/09/2024 3:31 AM EDT HEALTHCARE LAB Device ID [id number] 11/09/2024 3:31 AM EDT HEALTHCARE LAB Specimen Type POC Capillary 11/09/2024 3:31 AM EDT [facility]ALTH[facility] Blood Capillary blood specimen / Unknown 11/09/2024 3:30 AM EDT 11/09/2024 3:31 AM EDT Nathaly Nowak MD LAB POINT OF CARE TE ST DOCKED DEVICE UNSOLICITED RESULTS Final Result Performing Organization Address City/State/[facility] [[email or web address]] Co de Phone Number [facility]ARE [facility] [address] [place] [address] * (ABNORMAL) POCT glucose meter (11/08/2024 7:21 PM EDT) [facility] POCT Glucose 292(H) 74 - [...] 11/08/2024 7:22 PM EDT [facility] Paper Products Inspector ID Maximiliano Hansen II 11/08/2024 7:22 PM EDT [facility] Device ID [id number] 11/08/2024 7:22 PM EDT [facility] Specimen Type POC Capillary 11/08/2024 7:22 PM EDT [facility] Blood Capillary blood specimen / Unknown 11/08/2024 7:21 PM EDT 11/08/2024 7:22 PM EDT Nathaly Nowak MD LAB POINT OF CARE TE ST DOCKED DEVICE UNSOLICITED RESULTS Final Result Performing Organization Address City/[facility] [[email or web address]] Co de Phone Number [facility] [address] [place] [address] * (ABNORMAL) POCT glucose meter (11/08/2024 5:12 [...] Comment 11/08/2024 5:14 PM EDT HEALTHCARE LAB Paper Products Inspector ID Estefani Sheth 11/08/2024 5:14 PM EDT HEALTHCARE LAB Device ID [id number] 11/08/2024 5:14 PM EDT [facility]ALTH[facility]ARE LAB Specimen Type POC Capillary 11/08/2024 5:14 PM EDT [facility] Blood Capillary blood specimen / Unknown 11/08/2024 5:12 PM EDT 11/08/2024 5:14 PM EDT Nathaly Nowak MD LAB POINT OF CARE TE ST DOCKED DEVICE UNSOLICITED RESULTS Final Result Performing Organization Address City/[facility]/ZIP Co de Phone Number [facility] [address] [place] [address] * (ABNORMAL) POCT glucose meter (11/08/2024 12:03 [...] Comment 11/08/2024 12:05 PM EDT HEALTHCARE LAB Paper Products Inspector ID Estefani Sheth 11/08/2024 12:05 PM EDT HEALTHCARE LAB Device ID [id number] 11/08/2024 12:05 PM EDT [facility]ALTH[facility]ARE LAB Specimen Type POC Capillary 11/08/2024 12:05 PM EDT [facility] Blood Capillary blood specimen / Unknown 11/08/2024 12:03 PM EDT 11/08/2024 12:05 PM EDT Nathaly Nowak MD LAB POINT OF CARE TE ST DOCKED DEVICE UNSOLICITED RESULTS Final Result Performing Organization Address [facility] de Phone Number [facility] [address] [place] [address] * Vancomycin, Peak, Plasma Please draw ~2 hours after 11/08 0600 dose of vancomycin finishes infusing.Consider obtaining level via peripheral stick. If peripheral stick is not feasible, please ensure that line is flushed well prior to drawing level.... (11/08/2024 9:24 AM EDT) [facility] Vancomycin, Peak, Plasma 29.1 20.0 - 40.0 ug/mL 11/08/2024 10:31 AM EDT [facility] Blood Venous blood specimen / Unknown Venipuncture / Unknown 11/08/2024 9:24 AM EDT 11/08/2024 9:47 AM EDT Narrative [facility] - 11/08/2024 10:31 AM EDT Therapeutic Peak level: 20-40ug/mL Supra-therapeutic Peak level: >40 ug/mL Nathaly Nowak MD LAB BLOOD ORDERABLES Final Resu lt Performing Organization Address [facility] [[email or web address]] Co de Phone Number [facility] [address] [place] [address] * (ABNORMAL) POCT glucose meter (11/08/2024 8:00 AM EDT) [facility] POCT Glucose 150(H) 74 - [...] for testing. Comment 11/08/2024 8:01 AM EDT [facility] Paper Products Inspector ID Estefani Sheth 11/08/2024 8:01 AM EDT [facility] Device ID [id number] 11/08/2024 8:01 AM EDT [facility] Specimen Type POC Capillary 11/08/2024 8:01 AM EDT [facility] Blood Capillary blood specimen / Unknown 11/08/2024 8:00 AM EDT 11/08/2024 8:01 AM EDT us Nathaly Nowak MD LAB POINT OF CARE TE ST DOCKED DEVICE UNSOLICITED RESULTS Final Result Performing Organization Address City/State/[facility] [[email or web address]] Co de Phone Number [facility]ARE [facility] [address] [place] [address] * (ABNORMAL) CBC and Differential (11/08/2024 4:39 AM EDT) [facility] WBC Count 9.18 3.70 - 10.30 10*3/uL LAB HEMATOLOGY METHOD 11/08/2024 4:58 AM EDT [facility] RBC Count 3.11(L) 4.60 - 6.10 10*6/uL LAB HEMATOLOGY METHOD 11/08/2024 4:58 AM EDT [facility] HGB 9.2(L) 13.7 - 17.5 g/dL LAB HEMATOLOGY METHOD 11/08/2024 4:58 AM EDT [facility] HCT 28.9(L) 40.0 - 51.0 % LAB HEMATOLOGY METHOD 11/08/2024 4:58 AM EDT [facility] Platelet Count 485(H) 155 - 369 10*3/uL LAB HEMATOLOGY METHOD 11/08/2024 4:58 AM EDT [facility] MCV 93 79 - 98 fL LAB HEMATOLOGY METHOD 11/08/2024 4:58 AM EDT [facility] MCH 29.6 26.0 - 32.0 pg LAB HEMATOLOGY METHOD 11/08/2024 4:58 AM EDT [facility] MCHC 31.8 30.7 - 35.5 g/dL LAB HEMATOLOGY METHOD 11/08/2024 4:58 AM EDT [facility] RDW 13.0 11.5 - 14.5 % LAB HEMATOLOGY METHOD 11/08/2024 4:58 AM EDT [facility] MPV 8.8 8.8 - 12.5 fL LAB HEMATOLOGY METHOD 11/08/2024 4:58 AM EDT [facility] nRBC 0.0 <=0.0 per 100 WBCs LAB HEMATOLOGY METHOD 11/08/2024 4:58 AM EDT [facility] Differential Type Automated LAB HEMATOLOGY METHOD 11/08/2024 4:58 AM EDT [facility] Neutrophils % 69 % LAB HEMATOLOGY METHOD 11/08/2024 4:58 AM EDT [facility] Lymphocytes % 17 % LAB HEMATOLOGY METHOD 11/08/2024 4:58 AM EDT [facility] Monocytes % 10 % LAB HEMATOLOGY METHOD 11/08/2024 4:58 AM EDT [facility] Eosinophils % 2 % LAB HEMATOLOGY METHOD 11/08/2024 4:58 AM EDT [facility] Basophils % 1 % LAB HEMATOLOGY METHOD 11/08/2024 4:58 AM EDT [facility] Immature Granulocytes % 1 % LAB HEMATOLOGY METHOD 11/08/2024 4:58 AM EDT [facility] Neutrophils Absolute 6.40(H) 1.60 - 6.10 10*3/uL LAB HEMATOLOGY METHOD 11/08/2024 4:58 AM EDT [facility] Lymphocytes Absolute 1.59 1.20 - 3.90 10*3/uL LAB HEMATOLOGY METHOD 11/08/2024 4:58 AM EDT [facility] Monocytes Absolute 0.87 0.30 - 0.90 10*3/uL LAB HEMATOLOGY METHOD 11/08/2024 4:58 AM EDT [facility] Eosinophils Absolute 0.22 0.00 - 0.50 10*3/uL LAB HEMATOLOGY METHOD 11/08/2024 4:58 AM EDT [facility] Basophils Absolute 0.05 0.00 - 0.10 10*3/uL LAB HEMATOLOGY METHOD 11/08/2024 4:58 AM EDT [facility] Immature Granulocytes Absolute 0.05 0.00 - 0.06 10*3/uL LAB HEMATOLOGY METHOD 11/08/2024 4:58 AM EDT [facility] Blood Venous blood specimen / Unknown Venipuncture / Unknown 11/08/2024 4:39 AM EDT 11/08/2024 4:49 AM EDT Narrative [facility] - 11/08/2024 4:58 AM EDT Therapeutic decision making should be based on absolute values, rather than percentages. us Nathaly Nowak MD LAB BLOOD ORDERABLES Final Resu lt [facility] [address] [place] [address] * (ABNORMAL) Comprehensive Metabolic Panel, Plasma (11/08/2024 4:39 AM EDT) Glucose, Plasma 255(H) 74 - 99 mg/dL 11/08/2024 5:20 AM EDT [facility] BUN, Plasma 10 8 - 23 mg/dL 11/08/2024 5:20 AM EDT [facility] Creatinine, Plasma 0.75 0.70 - 1.20 mg/dL 11/08/2024 5:20 AM EDT [facility] BUN/Creatinine Ratio 13 11/08/2024 5:20 AM EDT [facility] Sodium, Plasma 133(L) 136 - 145 mmol/L 11/08/2024 5:20 AM EDT [facility] Potassium, Plasma 5.2(H) 3.6 - 4.9 mmol/L 11/08/2024 5:20 AM EDT [facility] Chloride, Plasma 105 97 - 107 mmol/L 11/08/2024 5:20 AM EDT [facility] CO2, Plasma 20(L) 22 - 29 mmol/L 11/08/2024 5:20 AM EDT [facility] Anion Gap 8 6 - 16 mmol/L 11/08/2024 5:20 AM EDT [facility] Total Calcium, Plasma 7.7(L) 8.9 - 10.2 mg/dL 11/08/2024 5:20 AM EDT [facility] Total Protein 5.6(L) 6.3 - 7.9 g/dL 11/08/2024 5:20 AM EDT [facility] Albumin, Plasma 2.8(L) 3.5 - 5.2 g/dL 11/08/2024 5:20 AM EDT [facility] AST, Plasma 20 10 - 50 U/L 11/08/2024 5:20 AM EDT [facility] Comment:Hemolyzed, result ma y be falsely increased. ALT, Plasma 14 10 - 50 U/L 11/08/2024 5:20 AM EDT [facility] Alkaline Phosphatase, Plasma 119(H) 40 - 115 U/L 11/08/2024 5:20 AM EDT [facility] Total Bilirubin, Plasma <0.2(L) 0.2 - 1.1 mg/dL 11/08/2024 5:20 AM EDT [facility] eGFRcr 100.1 mL/min/1.7 3m*2 11/08/2024 5:20 AM EDT [facility] Comment:Reported eGFRcr in m L/min/1.73m2 is based the CKD-EPI 2020 equation that does not use a race coefficient. Blood Venous blood specimen / Unknown Venipuncture / Unknown 11/08/2024 4:39 AM EDT 11/08/2024 4:43 AM EDT us Nathaly Nowak MD LAB BLOOD ORDERABLES Final Resu lt [facility] [address] [place] [address] * Vancomycin, Trough, Plasma Please draw ~30 minutes prior to dose due at 0600 on 11/08. Please do NOThold dose awaiting level to return. Consider obtaining level via peripheral stick. If peripheral stick is not feasible, please ensure that line is... (11/08/2024 4:39 AM EDT) [facility] Vancomycin, Trough, Plasma 18.7 10.0 - 20.0 ug/mL 11/08/2024 5:22 AM EDT [facility] Blood Venous blood specimen / Unknown Venipuncture / Unknown 11/08/2024 4:39 AM EDT 11/08/2024 4:43 AM EDT Narrative [facility] - 11/08/2024 5:22 AM EDT Therapeutic Trough level: 10-20ug/mL Supra-therapeutic Trough level: >20 ug/mL us Nathaly Nowak MD LAB BLOOD ORDERABLES Final Resu lt Performing Organization Address [facility] [[email or web address]] Co de Phone Number [facility] [address] [place] [address] * (ABNORMAL) POCT glucose meter (11/07/2024 7:26 PM EDT) [facility] POCT Glucose 172(H) 74 - [...] 11/07/2024 7:28 PM EDT [facility] Paper Products Inspector ID Maximiliano Hansen II 11/07/2024 7:28 PM EDT [facility] Device ID [id number] 11/07/2024 7:28 PM EDT [facility] Specimen Type POC Capillary 11/07/2024 7:28 PM EDT [facility] Blood Capillary blood specimen / Unknown 11/07/2024 7:26 PM EDT 11/07/2024 7:28 PM EDT us Nathaly Nowak MD LAB POINT OF CARE TE ST DOCKED DEVICE UNSOLICITED RESULTS Final Result Performing Organization Address City/[facility]/ZIP Co de Phone Number [facility] [address] [place] [address] * (ABNORMAL) POCT glucose meter (11/07/2024 5:51 PM EDT) [facility] POCT Glucose 183(H) 74 - 99 [...] 11/07/2024 5:52 PM EDT [facility] Paper Products Inspector ID Brigitte Castellon 11/07/2024 5:52 PM EDT [facility] Device ID [id number] 11/07/2024 5:52 PM EDT [facility] Specimen Type POC Capillary 11/07/2024 5:52 PM EDT [facility] Blood Capillary blood specimen / Unknown 11/07/2024 5:51 PM EDT 11/07/2024 5:52 PM EDT Nathaly Nowak MD LAB POINT OF CARE TE ST DOCKED DEVICE UNSOLICITED RESULTS Final Result [facility] [address] [place] [id number] * (ABNORMAL) POCT glucose meter (11/07/2024 4:47 PM EDT) [facility] POCT Glucose 162(H) 74 - [...] 11/07/2024 4:48 PM EDT [facility] Paper Products Inspector ID Estefani Sheth 11/07/2024 4:48 PM EDT [facility] Device ID [id number] 11/07/2024 4:48 PM EDT [facility] Specimen Type POC Capillary 11/07/2024 4:48 PM EDT [facility] Blood Capillary blood specimen / Unknown 11/07/2024 4:47 PM EDT 11/07/2024 4:48 PM EDT Nathaly Nowak MD LAB POINT OF CARE TE ST DOCKED DEVICE UNSOLICITED RESULTS Final Result Performing Organization Address City/[facility]/ZIP Co de Phone Number [facility] [address] [place] [address] * (ABNORMAL) POCT glucose meter (11/07/2024 12:22 [...] Comment 11/07/2024 12:24 PM EDT [facility] Paper Products Inspector ID Estefani Sheth 11/07/2024 12:24 PM EDT [facility] Device ID [id number] 11/07/2024 12:24 PM EDT [facility] Specimen Type POC Capillary 11/07/2024 12:24 PM EDT [facility] Blood Capillary blood specimen / Unknown 11/07/2024 12:22 PM EDT 11/07/2024 12:24 PM EDT Nathaly Nowak MD LAB POINT OF CARE TE ST DOCKED DEVICE UNSOLICITED RESULTS Final Result [facility] [address] [place] [address] * (ABNORMAL) CBC and Differential (11/07/2024 11:37 AM EDT) WBC Count 9.96 3.70 - 10.30 10*3/uL LAB HEMATOLOGY METHOD 11/07/2024 12:33 PM EDT [facility] RBC Count 2.81(L) 4.60 - 6.10 10*6/uL LAB HEMATOLOGY METHOD 11/07/2024 12:33 PM EDT [facility] HGB 8.5(L) 13.7 - 17.5 g/dL LAB HEMATOLOGY METHOD 11/07/2024 12:33 PM EDT [facility] HCT 26.0(L) 40.0 - 51.0 % LAB HEMATOLOGY METHOD 11/07/2024 12:33 PM EDT [facility] Platelet Count 524(H) 155 - 369 10*3/uL LAB HEMATOLOGY METHOD 11/07/2024 12:33 PM EDT [facility] MCV 93 79 - 98 fL LAB HEMATOLOGY METHOD 11/07/2024 12:33 PM EDT [facility] MCH 30.2 26.0 - 32.0 pg LAB HEMATOLOGY METHOD 11/07/2024 12:33 PM EDT [facility] MCHC 32.7 30.7 - 35.5 g/dL LAB HEMATOLOGY METHOD 11/07/2024 12:33 PM EDT [facility] RDW 13.1 11.5 - 14.5 % LAB HEMATOLOGY METHOD 11/07/2024 12:33 PM EDT [facility] MPV 9.0 8.8 - 12.5 fL LAB HEMATOLOGY METHOD 11/07/2024 12:33 PM EDT [facility] nRBC 0.0 <=0.0 per 100 WBCs LAB HEMATOLOGY METHOD 11/07/2024 12:33 PM EDT [facility] Differential Type Automated LAB HEMATOLOGY METHOD 11/07/2024 12:33 PM EDT [facility] Neutrophils % 72 % LAB HEMATOLOGY METHOD 11/07/2024 12:33 PM EDT [facility] Lymphocytes % 17 % LAB HEMATOLOGY METHOD 11/07/2024 12:33 PM EDT [facility] Monocytes % 9 % LAB HEMATOLOGY METHOD 11/07/2024 12:33 PM EDT [facility] Eosinophils % 1 % LAB HEMATOLOGY METHOD 11/07/2024 12:33 PM EDT [facility] Basophils % 1 % LAB HEMATOLOGY METHOD 11/07/2024 12:33 PM EDT [facility] Immature Granulocytes % 0 % LAB HEMATOLOGY METHOD 11/07/2024 12:33 PM EDT [facility] Neutrophils Absolute 7.19(H) 1.60 - 6.10 10*3/uL LAB HEMATOLOGY METHOD 11/07/2024 12:33 PM EDT [facility] Lymphocytes Absolute 1.66 1.20 - 3.90 10*3/uL LAB HEMATOLOGY METHOD 11/07/2024 12:33 PM EDT [facility] Monocytes Absolute 0.88 0.30 - 0.90 10*3/uL LAB HEMATOLOGY METHOD 11/07/2024 12:33 PM EDT [facility] Eosinophils Absolute 0.14 0.00 - 0.50 10*3/uL LAB HEMATOLOGY METHOD 11/07/2024 12:33 PM EDT [facility] Basophils Absolute 0.05 0.00 - 0.10 10*3/uL LAB HEMATOLOGY METHOD 11/07/2024 12:33 PM EDT [facility] Immature Granulocytes Absolute 0.04 0.00 - 0.06 10*3/uL LAB HEMATOLOGY METHOD 11/07/2024 12:33 PM EDT [facility] Blood Venous blood specimen / Unknown Venipuncture / Unknown 11/07/2024 11:37 AM EDT 11/07/2024 12:24 PM EDT Narrative [facility] - 11/07/2024 12:33 PM EDT Therapeutic decision making should be based on absolute values, rather than percentages. us Nathaly Nowak MD LAB BLOOD ORDERABLES Final Resu lt [facility] [address] [place] [address] * (ABNORMAL) Comprehensive Metabolic Panel, Plasma (11/07/2024 11:37 AM EDT) Glucose, Plasma 173(H) 74 - 99 mg/dL 11/07/2024 1:31 PM EDT [facility] BUN, Plasma 13 8 - 23 mg/dL 11/07/2024 1:31 PM EDT [facility] Creatinine, Plasma 0.92 0.70 - 1.20 mg/dL 11/07/2024 1:31 PM EDT [facility] BUN/Creatinine Ratio 14 11/07/2024 1:31 PM EDT [facility] Sodium, Plasma 136 136 - 145 mmol/L 11/07/2024 1:31 PM EDT [facility] Potassium, Plasma 4.0 3.6 - 4.9 mmol/L 11/07/2024 1:31 PM EDT [facility] Chloride, Plasma 104 97 - 107 mmol/L 11/07/2024 1:31 PM EDT [facility] CO2, Plasma 23 22 - 29 mmol/L 11/07/2024 1:31 PM EDT [facility] Anion Gap 9 6 - 16 mmol/L 11/07/2024 1:31 PM EDT [facility] Total Calcium, Plasma 7.8(L) 8.9 - 10.2 mg/dL 11/07/2024 1:31 PM EDT [facility] Total Protein 5.7(L) 6.3 - 7.9 g/dL 11/07/2024 1:31 PM EDT [facility] Albumin, Plasma 3.0(L) 3.5 - 5.2 g/dL 11/07/2024 1:31 PM EDT [facility] AST, Plasma 15 10 - 50 U/L 11/07/2024 1:31 PM EDT [facility] ALT, Plasma 16 10 - 50 U/L 11/07/2024 1:31 PM EDT [facility] Alkaline Phosphatase, Plasma 119(H) 40 - 115 U/L 11/07/2024 1:31 PM EDT [facility] Total Bilirubin, Plasma <0.2(L) 0.2 - 1.1 mg/dL 11/07/2024 1:31 PM EDT [facility] eGFRcr 92.3 mL/min/1.7 3m*2 11/07/2024 1:31 PM EDT [facility] Comment:Reported eGFRcr in m L/min/1.73m2 is based the CKD-EPI 2020 equation that does not use a race coefficient. Blood Venous blood specimen / Unknown Venipuncture / Unknown 11/07/2024 11:37 AM EDT 11/07/2024 12:23 PM EDT Nathaly Nowak MD LAB BLOOD ORDERABLES Final Resu lt Performing Organization Address City/[facility]/ZIP Co de Phone Number [facility] [address] [place] [address] * Type and Screen (11/07/2024 11:37 AM [...] ORDERABLES F inal Result Performing Organization Address [facility] Phone Number BLOOD BANK [address] [place] [address] * (ABNORMAL) POCT glucose meter (11/07/2024 10:34 AM EDT) [facility] POCT Glucose 199(H) 74 - [...] Comment 11/07/2024 10:36 AM EDT [facility] Paper Products Inspector ID Joy Iraheta Beatrice 11/07/2024 10:36 AM EDT [facility] Device ID [id number] 11/07/2024 10:36 AM EDT [facility] Specimen Type POC Capillary 11/07/2024 10:36 AM EDT [facility] Blood Capillary blood specimen / Unknown 11/07/2024 10:34 AM EDT 11/07/2024 10:36 AM EDT Nathaly Nowak MD LAB POINT OF CARE TE ST DOCKED DEVICE UNSOLICITED RESULTS Final Result Performing Organization Address City/[facility]/ZIP Co de Phone Number [facility] [address] [place] [address] * (ABNORMAL) POCT glucose meter (11/07/2024 9:34 [...] Comment 11/07/2024 9:36 AM EDT [facility] Paper Products Inspector ID Brigitte Castellon 11/07/2024 9:36 AM EDT [facility] LAB Device ID [id number] 11/07/2024 9:36 AM EDT [facility] Specimen Type POC Capillary 11/07/2024 9:36 AM EDT [facility] Blood Capillary blood specimen / Unknown 11/07/2024 9:34 AM EDT 11/07/2024 9:36 AM EDT Nathaly Nowak MD LAB POINT OF CARE TE ST DOCKED DEVICE UNSOLICITED RESULTS Final Result Performing Organization Address City/[facility]/ZIP Co de Phone Number [facility] [address] [place] [address] * (ABNORMAL) POCT glucose meter (11/07/2024 8:20 [...] Comment 11/07/2024 8:22 AM EDT [facility] Paper Products Inspector ID Estefani Sheth 11/07/2024 8:22 AM EDT [facility] LAB Device ID [id number] 11/07/2024 8:22 AM EDT [facility] Specimen Type POC Capillary 11/07/2024 8:22 AM EDT [facility] Blood Capillary blood specimen / Unknown 11/07/2024 8:20 AM EDT 11/07/2024 8:22 AM EDT Nathaly Nowak MD LAB POINT OF CARE TE ST DOCKED DEVICE UNSOLICITED RESULTS Final Result Performing Organization Address City/[facility] [[email or web address]] Co de Phone Number [facility] [address] [place] [address] * (ABNORMAL) POCT glucose meter (11/07/2024 7:21 [...] Comment 11/07/2024 7:22 AM EDT [facility] Paper Products Inspector ID Brigitte Castellon 11/07/2024 7:22 AM EDT [facility] LAB Device ID [id number] 11/07/2024 7:22 AM EDT [facility] Specimen Type POC Capillary 11/07/2024 7:22 AM EDT [facility] Blood Capillary blood specimen / Unknown 11/07/2024 7:21 AM EDT 11/07/2024 7:22 AM EDT Nathaly Nowak MD LAB POINT OF CARE TE ST DOCKED DEVICE UNSOLICITED RESULTS Final Result Performing Organization Address City/[facility]/ZIP Co de Phone Number [facility] [address] [place] [address] * (ABNORMAL) POCT glucose meter (11/07/2024 6:25 AM EDT) Pathologist [facility] POCT Glucose 144(H) [...] for testing. Comment 11/07/2024 6:27 AM EDT [facility] Paper Products Inspector ID Nelda Gerber 11/08/19 6:27 AM EDT [facility] Device ID [id number] 11/07/2024 6:27 AM EDT [facility] Specimen Type POC Capillary 11/07/2024 6:27 AM EDT [facility] Blood Capillary blood specimen / Unknown 11/07/2024 6:25 AM EDT 11/07/2024 6:27 AM EDT Nathaly Nowak MD LAB POINT OF CARE TE ST DOCKED DEVICE UNSOLICITED RESULTS Final Result [facility] [address] [place] [address] * (ABNORMAL) POCT glucose meter (11/07/2024 5:03 AM EDT) [facility] POCT Glucose 139(H) 74 - 99 mg/dL [...] 11/07/2024 5:08 AM EDT [facility] Paper Products Inspector ID Nelda Gerber 11/08/19 5:08 AM EDT [facility] Device ID [id number] 11/07/2024 5:08 AM EDT [facility] Specimen Type POC Capillary 11/07/2024 5:08 AM EDT [facility] Blood Capillary blood specimen / Unknown 11/07/2024 5:03 AM EDT 11/07/2024 5:08 AM EDT Nathaly Nowak MD LAB POINT OF CARE TE ST DOCKED DEVICE UNSOLICITED RESULTS Final Result Performing Organization Address City/[facility] [[email or web address]] Co de Phone Number [facility] [address] [place] [address] * (ABNORMAL) POCT glucose meter (11/07/2024 4:16 [...] Comment 11/07/2024 4:18 AM EDT [facility] Paper Products Inspector ID Nelda Gerber 11/08/19 4:18 AM EDT [facility] Device ID [id number] 11/07/2024 4:18 AM EDT [facility] Specimen Type POC Capillary 11/07/2024 4:18 AM EDT [facility] Blood Capillary blood specimen / Unknown 11/07/2024 4:16 AM EDT 11/07/2024 4:18 AM EDT us Nathaly Nowak MD LAB POINT OF CARE TE ST DOCKED DEVICE UNSOLICITED RESULTS Final Result [facility] [address] [place] [address] * (ABNORMAL) POCT glucose meter (11/07/2024 3:21 [...] Comment 11/07/2024 3:23 AM EDT [facility] Paper Products Inspector ID Nelda Gerber 11/08/19 3:23 AM EDT [facility] Device ID [id number] 11/07/2024 3:23 AM EDT [facility] Specimen Type POC Capillary 11/07/2024 3:23 AM EDT [facility] Blood Capillary blood specimen / Unknown 11/07/2024 3:21 AM EDT 11/07/2024 3:23 AM EDT us Nathaly Nowak MD LAB POINT OF CARE TE ST DOCKED DEVICE UNSOLICITED RESULTS Final Result Performing Organization Address City/State/[facility] [[email or web address]] Co de Phone Number [facility] [address] [place] [address] * (ABNORMAL) POCT glucose meter (11/07/2024 2:10 AM EDT) [facility] POCT Glucose 146(H) 74 - [...] Comment 11/07/2024 2:12 AM EDT [facility] Paper Products Inspector ID Nelda Gerber 11/08/19 2:12 AM EDT [facility] Device ID [id number] 11/07/2024 2:12 AM EDT [facility] Specimen Type POC Capillary 11/07/2024 2:12 AM EDT [facility] Blood Capillary blood specimen / Unknown 11/07/2024 2:10 AM EDT 11/07/2024 2:12 AM EDT us Nathaly Nowak MD LAB POINT OF CARE TE ST DOCKED DEVICE UNSOLICITED RESULTS Final Result [facility] [address] [place] [address] * (ABNORMAL) POCT glucose meter (11/07/2024 1:08 [...] for testing. Comment 11/07/2024 1:10 AM EDT [facility] Paper Products Inspector ID Nelda Gerber 11/08/19 1:10 AM EDT [facility] Device ID [id number] 11/07/2024 1:10 AM EDT [facility] Specimen Type POC Capillary 11/07/2024 1:10 AM EDT [facility] Blood Capillary blood specimen / Unknown 11/07/2024 1:08 AM EDT 11/07/2024 1:10 AM EDT us Nathaly Nowak MD LAB POINT OF CARE TE ST DOCKED DEVICE UNSOLICITED RESULTS Final Result [facility] [address] [place] [address] * (ABNORMAL) POCT glucose meter (11/07/2024 12:10 [...] Comment 11/07/2024 12:13 AM EDT [facility] Paper Products Inspector ID Nelda Gerber 11/08/19 12:13 AM EDT [facility] Device ID [id number] 11/07/2024 12:13 AM EDT [facility] Specimen Type POC Capillary 11/07/2024 12:13 AM EDT [facility] Blood Capillary blood specimen / Unknown 11/07/2024 12:10 AM EDT 11/07/2024 12:13 AM EDT Nathaly Nowak MD LAB POINT OF CARE TE ST DOCKED DEVICE UNSOLICITED RESULTS Final Result Performing Organization Address City/[facility] [[email or web address]] Co de Phone Number [facility] [address] [place] [address] * (ABNORMAL) POCT glucose meter (11/06/2024 11:14 [...] Comment 11/06/2024 11:16 PM EDT [facility] Paper Products Inspector ID Nelda Gerber 11/07/19 11:16 PM EDT [facility] Device ID [id number] 11/06/2024 11:16 PM EDT [facility] Specimen Type POC Capillary 11/06/2024 11:16 PM EDT [facility] Blood Capillary blood specimen / Unknown 11/06/2024 11:14 PM EDT 11/06/2024 11:16 PM EDT Nathaly Nowak MD LAB POINT OF CARE TE ST DOCKED DEVICE UNSOLICITED RESULTS Final Result Performing Organization Address City/[facility]/ZIP Co de Phone Number [facility] [address] [place] [address] * (ABNORMAL) POCT glucose meter (11/06/2024 10:07 PM EDT) [facility] POCT Glucose 140(H) 74 - [...] Comment 11/06/2024 10:09 PM EDT [facility] Paper Products Inspector ID Nelda Gerber 11/07/19 10:09 PM EDT [facility] Device ID [id number] 11/06/2024 10:09 PM EDT [facility] Specimen Type POC Capillary 11/06/2024 10:09 PM EDT [facility] Blood Capillary blood specimen / Unknown 11/06/2024 10:07 PM EDT 11/06/2024 10:09 PM EDT us Nathaly Nowak MD LAB POINT OF CARE TE ST DOCKED DEVICE UNSOLICITED RESULTS Final Result Performing Organization Address City/State/[facility] [[email or web address]] Co de Phone Number [facility] [address] [place] [address] * (ABNORMAL) POCT glucose meter (11/06/2024 8:22 PM EDT) [facility] POCT Glucose 256(H) 74 - [...] 11/06/2024 8:25 PM EDT [facility] Paper Products Inspector ID Nelda Gerber 11/07/19 8:25 PM EDT [facility]ALTH[facility] LAB Device ID [id number] 11/06/2024 8:25 PM EDT [facility] Specimen Type POC Capillary 11/06/2024 8:25 PM EDT [facility] Blood Capillary blood specimen / Unknown 11/06/2024 8:22 PM EDT 11/06/2024 8:25 PM EDT Nathaly Nowak MD LAB POINT OF CARE TE ST DOCKED DEVICE UNSOLICITED RESULTS Final Result [facility] [address] [place] [address] * (ABNORMAL) POCT glucose meter (11/06/2024 7:31 [...] Comment 11/06/2024 7:32 PM EDT [facility] Paper Products Inspector ID Nelda Gerber 11/07/19 7:32 PM EDT [facility] Device ID [id number] 11/06/2024 7:32 PM EDT [facility] Specimen Type POC Capillary 11/06/2024 7:32 PM EDT [facility] Blood Capillary blood specimen / Unknown 11/06/2024 7:31 PM EDT 11/06/2024 7:32 PM EDT Nathaly Nowak MD LAB POINT OF CARE TE ST DOCKED DEVICE UNSOLICITED RESULTS Final Result [facility] [address] [place] [address] * (ABNORMAL) POCT glucose meter (11/06/2024 6:15 [...] Comment 11/06/2024 6:17 PM EDT [facility] Paper Products Inspector ID Estefani Sheth 11/06/2024 6:17 PM EDT [facility]ALTH[facility] LAB Device ID [id number] 11/06/2024 6:17 PM EDT [facility] Specimen Type POC Capillary 11/06/2024 6:17 PM EDT [facility] Blood Capillary blood specimen / Unknown 11/06/2024 6:15 PM EDT 11/06/2024 6:17 PM EDT Nathaly Nowak MD LAB POINT OF CARE TE ST DOCKED DEVICE UNSOLICITED RESULTS Final Result Performing Organization Address City/State/[facility] [[email or web address]] Co de Phone Number [facility] [address] [place] [address] * (ABNORMAL) POCT glucose meter (11/06/2024 4:57 [...] Comment 11/06/2024 4:58 PM EDT [facility] Paper Products Inspector ID Estefani Sheth 11/06/2024 4:58 PM EDT [facility] Device ID [id number] 11/06/2024 4:58 PM EDT [facility] Specimen Type POC Capillary 11/06/2024 4:58 PM EDT [facility] Blood Capillary blood specimen / Unknown 11/06/2024 4:57 PM EDT 11/06/2024 4:58 PM EDT us Nathaly Nowak MD LAB POINT OF CARE TE ST DOCKED DEVICE UNSOLICITED RESULTS Final Result [facility] [address] [place] [address] * (ABNORMAL) POCT glucose meter (11/06/2024 2:08 PM EDT) [facility] POCT Glucose 253(H) 74 - [...] for testing. Comment 11/06/2024 2:09 PM EDT [facility] Paper Products Inspector ID Brigitte Castellon 11/06/2024 2:09 PM EDT [facility] Device ID [id number] 11/06/2024 2:09 PM EDT [facility] Specimen Type POC Capillary 11/06/2024 2:09 PM EDT [facility] Blood Capillary blood specimen / Unknown 11/06/2024 2:08 PM EDT 11/06/2024 2:09 PM EDT Nathaly Nowak MD LAB POINT OF CARE TE ST DOCKED DEVICE UNSOLICITED RESULTS Final Result Performing Organization Address City/[facility] [[email or web address]] Co de Phone Number [facility] [address] [place] [address] * (ABNORMAL) POCT glucose meter (11/06/2024 12:27 PM EDT) [facility] POCT Glucose 228(H) 74 - [...] 11/06/2024 12:28 PM EDT [facility] Paper Products Inspector ID Jacinta Galloway 11/06/2024 12:28 PM EDT [facility]ALTH[facility] LAB Device ID [id number] 11/06/2024 12:28 PM EDT [facility] Specimen Type POC Capillary 11/06/2024 12:28 PM EDT [facility] Blood Capillary blood specimen / Unknown 11/06/2024 12:27 PM EDT 11/06/2024 12:28 PM EDT us Nathaly Nowak MD LAB POINT OF CARE TE ST DOCKED DEVICE UNSOLICITED RESULTS Final Result [facility] [address] [place] [address] * (ABNORMAL) Tissue Culture and Gram Stain (11/06/2024 11:34 AM EDT) Culture Moderate Growth 7:35 AM EDT [facility] Culture 2+ Enterobacter cloacae complex(A) ANGÉLICA 11/15/2024 7:35 AM EDT [facility] Comment: This isolate has been identified using the FDA Approved [employer] CA System The organism value for this result has been updated. These results have been appended to the previously preliminary verified report. Edited result: Previously reported as Gram Negative Jesus on 11/07/2024 at 1434 EDT. Culture 2+ Streptococcus mitis/oralis group(A) ANGÉLICA 11/15/2024 7:35 AM EDT [facility] Comment: This isolate has been identified using the FDA Approved MALDI Flaskonyper CA System The organism value for this result has been updated. These results have been appended to the previously preliminary verified report. Culture 2+ Pasteurella stomatis(A) ANGÉLICA 11/15/2024 7:35 AM EDT [facility] Comment: This result was determined by MALDI tof mass spectrometry using the 21GRAMS database and is for research use only. The organism value for this result has been updated. These results have been appended to the previously preliminary verified report. Gram Stain Result Few Gram negative rods(A) 11/15/2024 7:35 AM EDT [facility] Gram Stain Result Moderate Polymorphonuclear leukocytes(A) 11/15/2024 7:35 AM EDT [facility] Gram Stain Result Few Gram positive cocci in pairs(A) 11/15/2024 7:35 AM EDT [facility] [facility] Tissue Topography unknown / Unknown 11/06/2024 11:34 AM EDT 11/06/2024 12:18 PM EDT Comment:Pre-op diagnosis: Surgical wound infection [T81.49XA] Narrative [facility] - 11/15/2024 7:35 AM EDT PharmD Hunter Alberts requests penicillin, ceftriaxone and vancomycin on Streptococcus Organism Antibiotic Method Susceptibility Enterobacter cloacae complex Amoxicillin/Clavulanate ANGÉLIAC >16/8 ug/ml: Resistant Enterobacter cloacae complex Ampicillin [...] GENERAL ATIYA FRITZ Edited Result - Final [facility] [address] [place] [address] * (ABNORMAL) Anaerobic Culture (11/06/2024 11:34 AM EDT) Culture No anaerobes isolated 11/14/2024 1:25 PM EDT [facility] Culture Staphylococcus pseudintermedius( A) 11/14/2024 1:25 PM EDT [facility] Comment: This result was determined by MALDI tof mass spectrometry using the 21GRAMS database and is for research use only. This is an appended report. These results have been appended to a previously final verified report. Tissue Topography unknown / Unknown 11/06/2024 11:34 AM EDT 11/06/2024 12:18 PM EDT Comment:Pre-op diagnosis: Surgical wound infection [T81.49XA] Narrative [facility] - 11/14/2024 1:25 PM [...] Nathaly Nowak MD LAB [facility]BIOLOGY - [facility] Edited Result - Final [facility] [address] [place] [address] * (ABNORMAL) Routine Culture and Gram Stain (11/06/2024 11:29 AM EDT) Culture Moderate Growth 5:29 PM EDT [facility] Culture Enterobacter cloacae complex(A) 11/08/2024 5:29 PM EDT [facility] Comment: This isolate has been identified using the FDA Approved MALDI Flaskonyper CA System For susceptibility results refer to: - [id number] The organism value for this result has been updated. These results have been appended to the previously preliminary verified report. Gram Stain Result No polymorphonuclear leukocytes seen 11/08/2024 5:29 PM EDT [facility] Gram Stain Result No organisms seen 11/08/2024 5:29 PM EDT [facility] Swab Topography unknown / Unknown 11/06/2024 11:29 AM EDT 11/06/2024 12:19 PM EDT Comment:Pre-op diagnosis: Surgical wound infection [T81.49XA] Nathaly Nowak MD LAB MICROBIOLOGY - GENERAL ORDE RABLES Final Result Performing Organization Address City/[facility]/ZIP Co de Phone Number [facility] [address] [place] [address] * Fungal Culture, Routine (11/06/2024 11:29 AM EDT) Culture No Fungal Growth at 1 Week 11/13/2024 8:29 AM EDT [facility] Swab Topography unknown / Unknown 11/06/2024 11:29 AM EDT 11/06/2024 12:19 PM EDT Comment:Pre-op diagnosis: Surgical wound infection [T81.49XA] Nathaly Nowak MD LAB MICROBIOLOGY - GENERAL ORDE RABNOEIDA Final Result Performing Organization Address [facility] [[email or web address]] Co de Phone Number [facility] [address] [place] [address] * (ABNORMAL) Anaerobic Culture (11/06/2024 11:29 AM EDT) Culture No anaerobes isolated 11/14/2024 1:25 PM EDT [facility] Culture Streptococcus mitis/oralis group(A) 11/14/2024 1:25 PM EDT [facility] Comment: This result was determined by MALDI tof mass spectrometry using the 21GRAMS database and is for research use only. The organism value for this result has been updated. These results have been appended to the previously preliminary verified report. This is a corrected result. Previous organism was Mixed skin clifton on 11/10/2024 at 0718 EDT. Culture Staphylococcus pseudintermedius( A) 11/14/2024 1:25 PM EDT [facility] Comment: This isolate has been identified using the FDA Approved easyOwn.iter CA System This is an appended report. These results have been appended to a previously final verified report. Swab Topography unknown / Unknown 11/06/2024 11:29 AM EDT 11/06/2024 12:19 PM EDT Comment:Pre-op diagnosis: Surgical wound infection [T81.49XA] Narrative [facility] - 11/14/2024 1:25 PM [...] GENERAL ATIYA FRITZ Edited Result - Final [facility] [address] [place] [address] * Routine Culture and Gram Stain (11/06/2024 11:28 AM EDT) Culture No growth at day 4 2024 11:24 AM EDT [facility] Gram Stain Result No organisms seen 11/10/2024 11:24 AM EDT [facility] Gram Stain Result No polymorphonuclear leukocytes seen 11/10/2024 11:24 AM EDT [facility] Swab Topography unknown / Unknown 11/06/2024 11:28 AM EDT 11/06/2024 12:20 PM EDT Comment:Pre-op diagnosis: Surgical wound infection [T81.49XA] Nathaly Nowak MD LAB MICROBIOLOGY - GENERAL ORDE LAM Final Result Performing Organization Address City/[facility]/[place] [address] * Fungal Culture, Routine (11/06/2024 11:28 AM EDT) Culture No Fungal Growth at 1 Week 11/13/2024 8:29 AM EDT [facility] Swab Topography unknown / Unknown 11/06/2024 11:28 AM EDT 11/06/2024 12:20 PM EDT Comment:Pre-op diagnosis: Surgical wound infection [T81.49XA] Nathaly Nowak MD LAB MICROBIOLOGY - GENERAL ATIYA FRITZ Final Result Performing Organization Address [facility] [[email or web address]] [place] [address] * Anaerobic Culture (11/06/2024 11:28 AM EDT) Culture No growth at day 4 11/13/2024 12:53 PM EDT [facility] Swab Topography unknown / Unknown 11/06/2024 11:28 AM EDT 11/06/2024 12:20 PM EDT Comment:Pre-op diagnosis: Surgical wound infection [T81.49XA] Nathaly Nowak MD LAB MICROBIOLOGY - GENERAL ATIYA FRITZ Final Result Performing Organization Address City/[facility] [[email or web address]] Co de Phone Number [facility] [address] [place] [address] * (ABNORMAL) POCT glucose meter (11/06/2024 10:16 AM EDT) POCT Glucose 194(H) 74 - 99 mg/dL 11/06/2024 10:18 AM EDT [facility] Comment:Accuracy of a glucos e result [...] Comment 11/06/2024 10:18 AM EDT [facility] Paper Products Inspector ID Lacy Griffin 11/07/19 10:18 AM EDT [facility] Device ID [id number] 11/06/2024 10:18 AM EDT [facility] Specimen Type POC Capillary 11/06/2024 10:18 AM EDT [facility] Blood Capillary blood specimen / Unknown 11/06/2024 10:16 AM EDT 11/06/2024 10:18 AM EDT us Nathaly Nowak MD LAB POINT OF CARE TE ST DOCKED DEVICE UNSOLICITED RESULTS Final Result Performing Organization Address [facility] Phone Number [facility] [address] [place] [address] * (ABNORMAL) POCT glucose meter (11/06/2024 5:58 AM EDT) [facility] POCT Glucose 182(H) 74 - [...] Comment 11/06/2024 6:01 AM EDT [facility] Paper Products Inspector ID Raj Laird 11/07/19 6:01 AM EDT [facility] Device ID [id number] 11/06/2024 6:01 AM EDT [facility] Specimen Type POC Capillary 11/06/2024 6:01 AM EDT [facility] Blood Capillary blood specimen / Unknown 11/06/2024 5:58 AM EDT 11/06/2024 6:01 AM EDT us Nathaly Nowak MD LAB POINT OF CARE TE ST DOCKED DEVICE UNSOLICITED RESULTS Final Result Performing Organization Address City/[facility] [[email or web address]] Co de Phone Number [facility] [address] [place] [address] * (ABNORMAL) POCT glucose meter (11/06/2024 5:36 [...] Comment 11/06/2024 5:38 AM EDT [facility] Paper Products Inspector ID Shahid Sanches 11/06/2024 5:38 AM EDT [facility] Device ID [id number] 11/06/2024 5:38 AM EDT [facility] Specimen Type POC Capillary 11/06/2024 5:38 AM EDT [facility] Blood Capillary blood specimen / Unknown 11/06/2024 5:36 AM EDT 11/06/2024 5:38 AM EDT us Nathaly Nowak MD LAB POINT OF CARE TE ST DOCKED DEVICE UNSOLICITED RESULTS Final Result [facility] [address] [place] [address] * (ABNORMAL) Hemoglobin A1c (11/06/2024 1:07 AM EDT) Pathologist [facility] Hemoglobin A1c 7.6(H) <5.7 % 11/06/2024 11:09 AM EDT [facility] Blood Venous blood specimen / Unknown Venipuncture / Unknown 11/06/2024 1:07 AM EDT 11/06/2024 1:26 AM EDT Narrative [facility] - 11/06/2024 11:09 AM EDT HA1C Interpretive Data: Diagnosis of Diabetes: Diabetic > or = 6.5% Pre-diabetic 5.7 to 6.4% Non-diabetic < or = 5.6% Glycemic Targets for Type I and Type II Diabetics: Non- Adults <7.0% Adults <6.0% Children and Adolescents <7.5% Source: [place] [employer]. Standards of medical care in diabetes,2017. Diabetes Care.2017:40 (suppl 1):S1-S135. Result [facility] Nathaly Nowak MD LAB BLOOD ORDERABLES Final Resu lt Performing Organization Address City/[facility]/ZIP Co de Phone Number [facility] [address] [place] [address] * Blood Culture (Aerobic/Anaerobet Set) (11/06/2024 1:07 AM EDT) Culture No growth at day 5 11/11/2024 2:49 AM EDT [facility] Blood Structure of right hand / Unknown Venipuncture / Unknown 11/06/2024 1:07 AM EDT 11/06/2024 2:36 AM EDT Nathaly Nowak MD LAB MICROBIOLOGY - GENERAL ORDE RABLES Final Result Performing Organization Address [facility] [[email or web address]] Co de Phone Number [facility] [address] [place] [address] * Blood Culture (Aerobic/Anaerobet Set) (11/06/2024 1:07 AM EDT) Culture No growth at day 5 11/11/2024 3:01 AM EDT [facility] Blood Structure of antecubital vein / Unknown Venipuncture / Unknown 11/06/2024 1:07 AM EDT 11/06/2024 2:36 AM EDT Nathaly Nowak MD LAB MICROBIOLOGY - GENERAL ORDE RABLES Final Result Performing Organization Address City/[facility] [[email or web address]] Co de Phone Number [facility] [address] [place] [address] * (ABNORMAL) Basic metabolic panel (11/06/2024 1:07 AM EDT) Glucose, Plasma 207(H) 74 - 99 mg/dL 11/06/2024 1:41 AM EDT [facility] BUN, Plasma 20 8 - 23 mg/dL 11/06/2024 1:41 AM EDT [facility] Creatinine, Plasma 0.92 0.70 - 1.20 mg/dL 11/06/2024 1:41 AM EDT [facility] BUN/Creatinine Ratio 22 11/06/2024 1:41 AM EDT [facility] Sodium, Plasma 136 136 - 145 mmol/L 11/06/2024 1:41 AM EDT [facility] Potassium, Plasma 4.5 3.6 - 4.9 mmol/L 11/06/2024 1:41 AM EDT [facility] Chloride, Plasma 104 97 - 107 mmol/L 11/06/2024 1:41 AM EDT [facility] CO2, Plasma 22 22 - 29 mmol/L 11/06/2024 1:41 AM EDT [facility] Anion Gap 10 6 - 16 mmol/L 11/06/2024 1:41 AM EDT [facility] Total Calcium, Plasma 9.0 8.9 - 10.2 mg/dL 11/06/2024 1:41 AM EDT [facility] eGFRcr 92.3 mL/min/1.7 3m*2 11/06/2024 1:41 AM EDT [facility] Comment:Reported eGFRcr in m L/min/1.73m2 is based the CKD-EPI 2020 equation that does not use a race coefficient. Blood Venous blood specimen / Unknown Venipuncture / Unknown 11/06/2024 1:07 AM EDT 11/06/2024 1:12 AM EDT us Nathaly Nowak MD LAB BLOOD ORDERABLES Final Resu lt [facility] [address] [place] [address] * Phosphorus (11/06/2024 1:07 AM EDT) Phosphorus, Plasma 3.2 2.5 - 4.5 mg/dL 11/06/2024 1:41 AM EDT [facility] Blood Venous blood specimen / Unknown Venipuncture / Unknown 11/06/2024 1:07 AM EDT 11/06/2024 1:12 AM EDT us Nathaly Nowak MD LAB BLOOD ORDERABLES Final Resu lt Performing Organization Address City/[facility]/ZIP Co de Phone Number [facility] [address] [place] [address] * Magnesium (11/06/2024 1:07 AM EDT) Pathologist [facility] Magnesium, Plasma 2.2 1.9 - 2.4 mg/dL 11/06/2024 1:41 AM EDT [facility] Blood Venous blood specimen / Unknown Venipuncture / Unknown 11/06/2024 1:07 AM EDT 11/06/2024 1:12 AM EDT us Nathaly Nowak MD LAB BLOOD ORDERABLES Final Resu lt Performing Organization Address [facility] [[email or web address]] Co de Phone Number [facility] [address] [place] [address] * (ABNORMAL) CBC (11/06/2024 1:07 AM EDT) [facility] WBC Count 9.70 3.70 - 10.30 10*3/uL LAB HEMATOLOGY METHOD 11/06/2024 1:19 AM EDT [facility] RBC Count 2.89(L) 4.60 - 6.10 10*6/uL LAB HEMATOLOGY METHOD 11/06/2024 1:19 AM EDT [facility] HGB 8.8(L) 13.7 - 17.5 g/dL LAB HEMATOLOGY METHOD 11/06/2024 1:19 AM EDT [facility] HCT 26.2(L) 40.0 - 51.0 % LAB HEMATOLOGY METHOD 11/06/2024 1:19 AM EDT [facility] Platelet Count 542(H) 155 - 369 10*3/uL LAB HEMATOLOGY METHOD 11/06/2024 1:19 AM EDT [facility] MCV 91 79 - 98 fL LAB HEMATOLOGY METHOD 11/06/2024 1:19 AM EDT [facility] MCH 30.4 26.0 - 32.0 pg LAB HEMATOLOGY METHOD 11/06/2024 1:19 AM EDT [facility] MCHC 33.6 30.7 - 35.5 g/dL LAB HEMATOLOGY METHOD 11/06/2024 1:19 AM EDT [facility] RDW 13.2 11.5 - 14.5 % LAB HEMATOLOGY METHOD 11/06/2024 1:19 AM EDT [facility] MPV 8.7(L) 8.8 - 12.5 fL LAB HEMATOLOGY METHOD 11/06/2024 1:19 AM EDT [facility] nRBC 0.0 <=0.0 per 100 WBCs LAB HEMATOLOGY METHOD 11/06/2024 1:19 AM EDT [facility] Blood Venous blood specimen / Unknown Venipuncture / Unknown 11/06/2024 1:07 AM EDT 11/06/2024 1:12 AM EDT us Nathaly Nowak MD LAB BLOOD ORDERABLES Final Resu lt Performing Organization Address [facility]/ZIP Co de Phone Number [facility] [address] [place] [address] * Gold Top (11/06/2024 12:58 AM EDT) Extra Hold for add-ons 11/06/2024 3:21 AM EDT [facility] Comment:Auto resulted. Blood Venous blood specimen / Unknown 11/06/2024 12:58 AM EDT 11/06/2024 1:13 AM EDT us Nathaly Nowak MD LAB BLOOD ORDERABLES Final Resu lt [facility] [address] [place] [address] * Gold Top (11/06/2024 12:58 AM EDT) Extra Hold for add-ons 11/06/2024 3:21 AM EDT [facility] Comment:Auto resulted. Blood Venous blood specimen / Unknown 11/06/2024 12:58 AM EDT 11/06/2024 1:13 AM EDT us Nathaly Nowak MD LAB BLOOD ORDERABLES Final Resu lt Performing Organization Address [facility]/ZIP Co de Phone Number [facility] [address] [place] [address] * Light Green Top (11/06/2024 12:58 AM EDT) Extra Hold for add-ons 11/06/2024 3:21 AM EDT [facility] Comment:Auto resulted. Blood Venous blood specimen / Unknown 11/06/2024 12:58 AM EDT 11/06/2024 1:13 AM EDT us Nathaly Nowak MD LAB BLOOD ORDERABLES Final Resu lt Performing Organization Address [facility] [[email or web address]] Co de Phone Number [facility] [address] [place] [address] * Light Blue Top (11/06/2024 12:58 AM EDT) Extra Hold for add-ons 11/06/2024 3:21 AM EDT [facility] Comment:Auto resulted. Blood Venous blood specimen / Unknown 11/06/2024 12:58 AM EDT 11/06/2024 1:13 AM EDT us Nathaly Nowak MD LAB BLOOD ORDERABLES Final Resu lt Performing Organization Address [facility] [[email or web address]] Co de Phone Number [facility] [address] [place] [address] * Light Blue Top (11/06/2024 12:58 AM EDT) Extra Hold for add-ons 11/06/2024 3:21 AM EDT [facility] Comment:Auto resulted. Blood Venous blood specimen / Unknown 11/06/2024 12:58 AM EDT 11/06/2024 1:13 AM EDT us Nathaly Nowak MD LAB BLOOD ORDERABLES Final Resu lt Performing Organization Address [facility]/ZIP Co de Phone Number [facility] [address] [place] [address] * (ABNORMAL) POCT glucose meter (11/06/2024 12:45 [...] 11/06/2024 12:48 AM EDT [facility] Paper Products Inspector ID Raj Laird 11/07/19 12:48 AM EDT [facility]ALTH[facility] LAB Device ID [id number] 11/06/2024 12:48 AM EDT [facility] Specimen Type POC Capillary 11/06/2024 12:48 AM EDT [facility] Blood Capillary blood specimen / Unknown 11/06/2024 12:45 AM EDT 11/06/2024 12:48 AM EDT Nathaly Nowak MD LAB POINT OF CARE TE ST DOCKED DEVICE UNSOLICITED RESULTS Final Result [facility] [address] [place] [address] documented in this encounter Visit Diagnoses Diagnosis [...] 10 mg, Oral, Once, 1 dose, On 11/11/25 at 0945, Routine Given 11/11/2024 9:42 AM [...] needed, Starting on Mon11/06/24 at 0031, Until [facility] 11/14/24 at 1804, Routine, line care [...] needed, Starting on Mon11/06/24 at 0753, Until [facility] 11/14/24 at 1804, Routine, On Unit - Preprocedure, line care sodium chloride 0.9 % flush 10 mL 10 mL, Intravenous, Every 12 hours, First dose on [facility] 11/09/24 at 1515, Until Discontinued, Routine Given 11/14/2024 2:42 PM EDT 10 mL Given 11/14/2024 3:03 AM EDT 10 mL Given 11/13/2024 4:43 PM EDT 10 mL Sodium Hypochlorite (Dakin's (HALF-Strength)) external solution 1 Application Irrigation, Daily, First dose on [facility] 11/09/24 at 0945, Until Discontinued, Routine Given [...] not met)1210 (Given - Provider: Yazmin Bhatt CHRISTIAN)1800 (Canceled Entry - Provider: Automatic Discharge [...] RN) 2031 (Given - Provider: Jonathan Vale, CHRISTIAN) insulin lispro (Admelog) 100 units/mL injection - Correction - Resistant Dose 0-10 Units, Subcutaneous, 3 times daily with meals, First dose on Mon11/07/24 at 0945, Until Discontinued, Routine 0917 (Not Given - Provider: Devora Bo - Reason: Order parameters not met - Comment: [phone] (Given - Provider: Devora F Bo)1806 (Given - Provider: Devora Bo) 0839 (Given - Provider: Devora Bo)1226 (Not Given - Provider: Devora Bo - Reason: Order parameters not met - Comment: [phone] (Not Given - Provider: Devora Bo - Reason: Order parameters not met) 0856 (Given - Provider: Yazmin Bhatt, CHRISTIAN)1210 (Given - Provider: Yazmin Bhatt RN)1730 (Canceled Entry - Provider: Automatic Discharge Provider - Comment: Automatically canceled at discontinue of medication order) insulin lispro (Admelog) injection - Correction - Nighttime Dose 0-3 Units, Subcutaneous, 2 times nightly (2100 & 0300), First dose on Mon11/07/24 at 2100, Until Discontinued, Routine 0222 (Not Given - Provider: oJnathan Vale RN - Reason: Order parameters not [...] 125 mL/hr, Administer over 60 Minutes, Routine 2325 (New Bag - Provider: Jonathan Vale RN) [...] documented as of this encounter Care Teams Curing Room Worker Relationship Specialty Start Date End Date Asad Victor MD [address] [place] [address] PCP - General 10/07/22 documented as of this encounter
--- OUTSIDE RECORDS SUMMARY | 2024-11-06 10:08 | XMS_ITS | Encounter Summary ---
Author Organization Healthcare Address [address] [place] [address] Care Team Providers Care Anesthesia Resident Name Role Phone Asad Victor MD Primary Care Provider + [phone] Reason for Visit * Reason Comments Post-op Problem Wound Check * Auth/Cert (Routine) Specialty Diagnoses / Procedures Referred By Contac t Referred To Contact Diagnoses Wound infection Post-op Vasc Sx wounds - sx on 10/17 at Nathaly Nowak MD [address] [address] Phone: tel: fax: [facility] Emergency Department [address] [place] [address] Phone: tel: Referral ID Status Reason Start Date Expiration Date Visits Re quested Visits Authorized [id number] 1 1 Encounter Details Date Type Department Care Team (Late st Contact Info) Description 11/06/2024 10:08 AM EDT - 11/06/2024 11:38 AM EDT Surgery [facility] OPERATING ROOM [address] [place] [address] Nathaly Nowak MD [id number] [place] [address] Left groin exploration and washout, [...] any time in the past 12 m [facility], were you homeless or living in a group home (including now)? No 11/07/2024 CAGE ASSESSMENT [...] drink first t dino in the morning (EYE-SHIPPING & RECEIVING LEAD) to steady your nerves or to get rid of a hangover? 0 10/18/2021 CAGE Questionnaire Score 0 022 Utilities Answer Date Recorded In the past 12 months has [employer] [place], gas, oil, or water [employer] threatened to shut off services in your [...] Carmona with any questions or concerns at [phone]. It is important that you get your [...] Note Bev Borja 64 y.o. male CSN: [id number] Admission: 11/05/2024 9:45 PM Primary Problem: Wound infection Primary Radio Performer: Primary Caregiver: Self Assistance Available at Discharge: [...] days Follow-up: [facility] [address] [facility] [address] Go to Infusion Clinic. Please arrive at 11 am daily. [address] [address] Go to Wound care clinic. First appointment is 1:10 pm. Please call [phone] with scheduling concerns. Discharge Transportation: Transportation Anticipated: medical transport Transportation Home at Discharge: Medical Transport Follow Up Transport: Transportation Needed to Follow up Appoinments: Medical Transport Additional Comments: Patient discharging home. No other SW needs identified. Mariia Monterroso FOREST ECONOMIST * Discharge Summary - Melecio Echevarria DO - 11/14/2024 12:46 PM EDT Hospitalization Admit Date/Time: 11/05/2024 9:45 PM Admitting Attending: Nathaly Nowak Discharge Date: 11/14/2024 Discharge Attending Physician: Nathaly Nowak MD PCP name and Address: Asad Victor MD (Inactive) [address] [place] [address] / [facility] [address] Referring provider name and address: Wade Cowart, [address] [place] [address] Chief Concern, Brief History of Present Illness, and Hospital Course Mr. Borja is a 64 y/o male that presented to [facility] on 11/06/2024 for surgical wound [...] Your Medications These medications were sent to [facility] Infusion Services - GLENDA Solorzano - [address], [place] [address] ertapenem injection micafungin injection Discharge Diagnosis Medical [...] Provider Department Center 11/26/2024 2:00 PM [facility] 1 [facility] 11/26/2024 2:30 PM [facility] 2 [facility] 11/26/2024 3:20 PM [facility]isab[facility] Schuster [facility] 11/29/2024 2:30 PM Oscar Appiah [...] y/o male that presented to [facility] on 11/06/2024 for surgical wound [...] portions of the procedure(s) and immediately available [facility] the entire duration. See resident note for details. * Progress Notes - Mariia Monterroso - 11/13/2024 1:57 PM EDT Case Management Adult Progress Note Bev Borja 64 y.o. male CSN: [id number] Admission: 11/05/2024 9:45 PM Primary Problem: Wound infection Wound vac to be delivered today by at bedside. SW sent referral/orders to [facility] wound care center (fax [phone]) and infusion clinic (fax [phone]). Plan to discharge tomorrow. SW will continue to follow. Mariia Monterroso FOREST ECONOMIST * Progress Notes - Bianca Knight PharmD [...] Lumen PICC Antimicrobial Regimen: IV Ertapenem 1g [id number] start date:11/06/2024 Projected End date:12/18/2024 IV Micafungin 150mg [id number] Start date: 11/12/2024 Projected End Date: 12/24/2024 [...] OPAT Team Attn: Dr Kraus Fax #: [phone] Appointments: (Dr Appiah 08/02/2024 at 2.30pm) at: [facility]: [address] [place] [address] (Select Option 3 for IV Antibiotic / PICC line related issues) For questions regarding OPAT prior to discharge, reach out to the OPAT team via [facility] Secure Chat (Group: OPAT Referral Team). For all questions regarding OPAT after discharge should be directed to the OPAT Team at (Select Option 3 for IV Antibiotics/PICC Issues) between 8am-5pm. After 5 pm, or during weekends/ holidays, please call the paging desizing pad operator at to reach the on-call ID [...] from the original note were not included. [facility] Department of Surgery Division of Vascular Surgery Surgery Progress Note 11/13/24 Bev Preez Cristoferkeo Subjective Subjective: HPI 64yoM PMHx COPD, T2DM, HLD, HTN, RLS, CAD s/p PCI (on Xarelto) s/p pacemaker c/b left SANDIP pseudoaneurysm s/p thrombin injection 09/21/24, CLI s/p left femoral endarterectomy with EIA/COMMUNITY CASE MANAGER stenting 10/17/24, who [facility] [...] 09/21/24, CLI s/p left femoral endarterectomy with EIA/COMMUNITY CASE MANAGER stenting 7/24/25, who presented to [facility] [...] were obtained for surgical purposes. See Terrell aGutam's surgical note in the patient's chart for the findings. Cardiac Device Check - PRE-OR [facility] EP-Device Clinic: Pre-operative CIED Report Assessment and Sara-Procedural Reommendations: Name: Bev Borja Date: 10/17/2024 : 1960 Age: 64 y.o. Patient has a Before School: [employer] Remaining battery longevity adequate. Lead integrity test [...] Units Date/Time Tissue Culture and Gram Stain [[id number]] (Abnormal) (Susceptibility) Collected: 11/06/24 1134 Order Status: Completed Specimen: Tissue from Other (specify site) Updated: 11/12/24 1334 Culture Moderate Growth 2+ Enterobacter cloacae complex Comment: This isolate has been identified using the FDA Approved Nfocus Neuromedicalyper CA System The organism value for this result has been updated. These results have been appended to the previously preliminary verified report. Edited result: Previously reported as Gram Negative Jesus on 11/07/2024 at 1434 EDT. 2+ Streptococcus mitis/oralis group Comment: This isolate has been identified using the FDA Approved MALDI [employer] CA System The organism value for this result has been updated. These results have been appended to the previously preliminary verified report. 2+ Pasteurella stomatis Comment: This result was determined by MALDI tof mass spectrometry using the ZALP database and is for research use only. The organism value for this result has been updated. These results have been appended to the previously preliminary verified report. Gram Stain Result Few Gram negative rods Moderate Polymorphonuclear leukocytes Few Gram positive cocci in pairs Narrative: ElizabethD Hunter Vanhoose requests penicillin, ceftriaxone and vancomycin [...] stewardship team. Comprehensive GI Panel by PCR [[id number]] (Normal) Collected: 11/12/24 0950 Order Status: Completed [...] if clinically indicated. Clostridiodes (Clostridium) difficile PCR [[id number]] (Normal) Collected: 11/12/24 0950 Order Status: Completed [...] high complexity clinical laboratory testing. Anaerobic Culture [[id number]] Collected: 11/06/24 1128 Order Status: Completed Specimen: Swab from Other (specify site) Updated: 11/12/24 1118 Culture No growth at day 4 Fungal Culture, Tissue and ISIDRO [[id number]] (Abnormal) Collected: 11/06/24 1134 Order Status: Completed Specimen: Tissue from Other (specify site) Updated: 11/12/24 1033 Culture Reading Mycological 4 Weeks Rare [place] Sana parapsilosis Comment: This isolate has been identified using the FDA Approved MALDI [employer] CA System The organism value for this result has been updated. These results have been appended to the previously preliminary verified report. Edited result: Previously reported as Yeast on 11/11/2024 at 1317 EDT. ISIDRO No fungal elements seen Additional Susceptibilities and/or Identification [[id number]] Collected: 11/11/24 1240 Order Status: Completed Specimen: Tissue from Wound (specify site): Additional Susceptibilities and/or Identification [[id number]] Collected: 11/11/24 1238 Order Status: Completed Specimen: Tissue from Wound (specify site): Additional Susceptibilities and/or Identification [[id number]] Collected: 11/11/24 1237 Order Status: Completed Specimen: Tissue from Wound (specify site): AFB Culture, Non Respiratory Source and Acid Fast Stain [[id number]] Collected: 11/06/24 1134 Order Status: Completed Specimen: Tissue from Other (specify site) Updated: 11/11/24 0938 AFB Culture No Mycobacterial Growth <1 Week Acid Fast Stain No acid fast bacilli seen Blood Culture (Aerobic/Anaerobet Set) [[id number]] Collected: 11/06/24106 Order Status: Completed Specimen: Blood from AC, Left Updated: 11/11/24 0301 Culture No growth at day 5 Blood Culture (Aerobic/Anaerobet Set) [[id number]] Collected: 11/06/24106 Order Status: Completed Specimen: Blood from Hand, Right Updated: 11/11/24 0249 Culture No growth at day 5 Micro: BC x2 11/06: negative Wound culture 11/06: Enterobacter cloacae complex Tissue culture 11/06: Enterobacter cloacae complex, streptococcus mitis/oralis, pastuerella stomatis Anaerobic culture 11/06: Staphylococcus Pseudintermedius Fungal culture 11/06: rare colony saan parapsilosis Stool PCR 11/12: c diff neg, [...] OSH. [facility] and [...] stay a facility, plan [facility] daily IV abx. Plan for ID [...] tablet 1,000 mg 1,000 mg Oral q6h [facility] Anthony Reyes MD 1,000 mg [...] at 11/12/24 2326 150 mg at 11/12/24 232 mupirocin (Bactroban) 2 % ointment 1 Application [...] Intravenous q12h Reid Daniels MD 1,000 mg at08/20/25 0840 Cosigned by Vaishali Kraus MD at [...] Prevent or Manage Infection Flowsheets (Taken 11/11/2024 4104 by Jonathan Vale, RN) Infection Management: aseptic technique maintained Fever Reduction/Comfort Measures: lightweight bedding Isolation Precautions: protective contact Note: IV antibiotics Problem: Fall Injury Risk Goal: Absence of Fall and Fall-Related Injury Outcome: Ongoing, Progressing Note: Staff assistance Problem: Pain Acute Goal: Optimal Pain Control and Function Outcome: Ongoing, Progressing Intervention: Prevent or Manage Pain Flowsheets (Taken 11/11/2024 9083 by Jonathan Vale RN) Sensory Stimulation Regulation: care clustered lighting decreased quiet environment promoted Medication Review/Management: medications reviewed * Consults - Anabel Ovalle RD - 11/12/2024 9:59 AM EDT Adult Nutrition Evaluation Note Bev Borja 64 y.o. male CSN: [id number] Room/Bed 682/682B Nutrition evaluation type: assessment Reason [...] (Room air) O2 Delivery Method: Face tent Mchenry Coma Scale Score: 15 Loi Scale Score: [...] (194 lb 3.6 oz) BMI (Calculated): 30.41 [place] Body Weight (kg): 67.3 Percent [place] Body Weight: 131 Adjusted Body Weight (kg): [...] oz) Estimated Needs: Kcal/ K-30 Kcal Provided: 5805-4422 Kcal Needs Based On: Adjusted weight Gm Protein/ Kg : 1.2-1.5 Protein Provided: 87-108 Protein Needs Based On: Adjusted weight Metabolic Cart Study Results: Current Nutrition Intake: Diet Order: Adult Diet Diet Texture: Regular Adult Carbohydrate Restriction: Consistent CHO 1 (6093-1529 Jatinder, 65 g/meal) Percent Meals Eaten (%): avg 63% x 6 emals Diet Experience and Nutrition History: Diet Education Provided: Will monitor Pertinent home medications: clopidogrel, docusate sodium, Lantus, Humalog, lisinopril, metoprolol tartrate, pravastatin, rivaroxaban, ropinirole, tamsulosin Synagogue needs: Nutrition Focused Physical Exam: Physical exam [...] ENDARTERECTOMY N/A 2017 Endarterectomy Carotid Artery from [employer] CORONARY ANGIOPLASTY Left Coronary Angiography With Concomitant Left Heart Catheterization from [employer] CORONARY ARTERY BYPASS GRAFT N/A 2018 3V ELBOW SURGERY Right ENDARTERECTOMY Left 10/17/2024 common/SFA/Profunda thromboendarterectomy, EIA/COMMUNITY CASE MANAGER stent HERNIA REPAIR KNEE ARTHROSCOPY Left VASCULAR SURGERY Left 09/21/2024 COMMUNITY CASE MANAGER pseudoaneurym injection [3] Social History Tobacco [...] from the original note were not included. [facility] Department of Surgery Division of Vascular Surgery Surgery Progress Note 11/12/24 Bev Borja Subjective Subjective: HPI 64yoM PMHx COPD, T2DM, HLD, HTN, RLS, CAD s/p PCI (on Xarelto) s/p pacemaker c/b left SANDIP pseudoaneurysm s/p thrombin injection 09/21/24, CLI s/p left femoral endarterectomy with EIA/COMMUNITY CASE MANAGER stenting 10/17/24, who [facility] [...] by Drain (mL) 11/10/24 0700 - 11/10/24 18511/10/24 1900 - 11/11/24 0659 11/11/24 07 - 11/11/24 1859 11/11/24 1900 - 11/12/24 0659 11/12/24 07 - 11/12/24 0904 Patient has no LDAs [...] 09/21/24, CLI s/p left femoral endarterectomy with EIA/COMMUNITY CASE MANAGER stenting 10/17/24, who [facility] [...] two wound vacs- now in place with Becca/W/F changes - Transitioned to cefepime, flagyl, and [...] the findings. Cardiac Device Check - [facility] EP-[facility]: Pre-operative CIED Report Assessment and Sara-Procedural Reommendations: Name: Bev Borja Date: 10/17/2024 : 1960 Age: 64 y.o. 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 Lead integrity test [...] Units Date/Time Tissue Culture and Gram Stain [[id number]] (Abnormal) (Susceptibility) Collected: 11/06/24 1134 Order Status: Completed Specimen: Tissue from Other (specify site) Updated: 11/12/24 1334 Culture Moderate Growth 2+ Enterobacter cloacae complex Comment: This isolate has been identified using the FDA Approved IMVU CA System The organism value for this result has been updated. These results have been appended to the previously preliminary verified report. Edited result: Previously reported as Gram Negative Jesus on 11/07/2024 at 1434 EDT. 2+ Streptococcus mitis/oralis group Comment: This isolate has been identified using the FDA Approved [employer] CA System The organism value for this result has been updated. These results have been appended to the previously preliminary verified report. 2+ Pasteurella stomatis Comment: This result was determined by MALDI tof mass spectrometry using the ZALP database and is for research use only. [...] stewardship team. Comprehensive GI Panel by PCR [[id number]] (Normal) Collected: 11/12/24 0950 Order Status: Completed [...] if clinically indicated. Clostridiodes (Clostridium) difficile PCR [[id number]] (Normal) Collected: 11/12/24 0950 Order Status: Completed [...] high complexity clinical laboratory testing. Anaerobic Culture [[id number]] Collected: 11/06/24 1128 Order Status: Completed Specimen: Swab from Other (specify site) Updated: 11/12/24 1118 Culture No growth at day 4 Fungal Culture, Tissue and ISIDRO [[id number]] (Abnormal) Collected: 11/06/241133 Order Status: Completed Specimen: Tissue from Other (specify site) Updated: 11/12/24 1033 Culture Reading Mycological 4 Weeks Rare [place] Sana parapsilosis Comment: This isolate has been identified using the FDA Approved Nfocus Neuromedicalyper CA System The organism value for this result has been updated. These results have been appended to the previously preliminary verified report. Edited result: Previously reported as Yeast on 11/11/2024 at 1317 EDT. ISIDRO No fungal elements seen Additional Susceptibilities and/or Identification [[id number]] Collected: 11/11/24 1240 Order Status: Completed Specimen: Tissue from Wound (specify site): Additional Susceptibilities and/or Identification [[id number]] Collected: 11/11/24 1238 Order Status: Completed Specimen: Tissue from Wound (specify site): Additional Susceptibilities and/or Identification [[id number]] Collected: 11/11/24 1237 Order Status: Completed Specimen: Tissue from Wound (specify site): AFB Culture, Non Respiratory Source and Acid Fast Stain [[id number]] Collected: 11/06/24 1134 Order Status: Completed Specimen: Tissue from Other (specify site) Updated: 11/11/24 0938 AFB Culture No Mycobacterial Growth <1 Week Acid Fast Stain No acid fast bacilli seen Blood Culture (Aerobic/Anaerobet Set) [[id number]] Collected: 11/06/24 0107 Order Status: Completed Specimen: Blood from AC, Left Updated: 11/11/24 0301 Culture No growth at day 5 Blood Culture (Aerobic/Anaerobet Set) [[id number]] Collected: 11/06/24106 Order Status: Completed Specimen: Blood [...] pt went to the [facility] vascular surgery for left groin [...] want to stay a facility, plan for [facility] daily IV abx. Plan [...] tablet 1,000 mg 1,000 mg Oral q6h [facility] Anthony Reyes MD 1,000 mg at 11/12/24 1356 aspirin chewable tablet 81 mg 81 mg Oral Daily Reid Daniels MD 81 mg at 11/12/24 0938 cefepime (Maxipime) 2 g in sodium chloride 0.9% 100 mL IVPB (vial adapter required) 2 g Nrjjujgblnro2a Reid Daniels MD 36.7 mL/hr at 11/12/24 [...] Anthony Reyes MD 40 mg at 11/11/24 2054 rivaroxaban (Xarelto) tablet 20 mg 20 mg [...] PM Anthony Reyes MD 0.4 mg at 987104 Vancomycin HCl in NaCl (Vancocin) IVPB 1,000 [...] send him home on micafungin as Rare [place] Sana parapsilosis grew and we do not [...] portions of the procedure(s) and immediately available [facility] the entire duration. See resident note for details. * Progress Notes - Mariia Monterroso - 11/11/2024 1:10 PM EDT Case Management Adult Progress Note Bev Borja 64 y.o. male CSN: [id number] Admission: 11/05/2024 9:45 PM Primary Problem: Wound infection Patient refusing inpatient placement for IV abx. [facility] infusion clinic can provide treatment. Face sheet, IV abx orders, and order for PICC care/labs/dressing changes need to be faxed to [phone]. Voicemail left with wound care clinic. Wound vac approved per , delivery pending. Cale continue to follow. Mariia Monterroso FOREST ECONOMIST * Progress Notes - Dotty Sethi MD [...] the findings. Cardiac Device Check - [facility] EP-Device [facility]: Pre-operative CIED Report Assessment and Sara-Procedural Reommendations: Name: Bev Borja Date: 10/17/2024 : 1960 Age: 64 y.o. Patient has a Before School: [employer] Remaining battery longevity adequate. Lead integrity test [...] recommendations. Supporting reports can be found in [facility] media file. Micro: Susceptibility data from last [...] Non Respiratory Source and Acid Fast Stain [[id number]] Collected: 11/06/24 1134 Order Status: Completed Specimen: Tissue from Other (specify site) Updated: 11/11/24 0938 AFB Culture No Mycobacterial Growth <1 Week Acid Fast Stain No acid fast bacilli seen Blood Culture (Aerobic/Anaerobet Set) [[id number]] Collected: 11/06/24106 Order Status: Completed Specimen: Blood from AC, Left Updated: 11/11/24 0301 Culture No growth at day 5 Blood Culture (Aerobic/Anaerobet Set) [[id number]] Collected: 11/06/24 010 Order Status: Completed Specimen: Blood from Hand, Right Updated: 11/11/24 0249 Culture No growth at day 5 Anaerobic Culture [[id number]] Collected: 11/06/24 1128 Order Status: Completed Specimen: Swab from Other (specify site) Updated: 11/10/24 1441 Culture No growth at day 4 Routine Culture and Gram Stain [[id number]] Collected: 11/06/24 1128 Order Status: Completed Specimen: Swab from Other (specify site) Updated: 11/10/24 1124 Culture No growth at day 4 Gram Stain Result No organisms seen No polymorphonuclear leukocytes seen Anaerobic Culture [[id number]] (Abnormal) Collected: 11/06/24 1129 Order Status: Completed Specimen: Swab from Other (specify site) Updated: 11/10/24717 Culture No anaerobes isolated Mixed skin clifton Comment: The organism value for this result has been updated. These results have been appended to the previously preliminary verified report. Narrative: Mixed Skin [place] includes Streptococcus mitis/oralis group and Staphylococcus Pseudintermedius Anaerobic Culture [[id number]] (Abnormal) Collected: 11/06/24 1134 Order Status: Completed Specimen: Tissue from Other (specify site) Updated: 11/10/24717 Culture No anaerobes isolated Mixed skin clifton [...] pt went to the [facility] vascular surgery for left groin [...] mL IVPB (vial adapter required) 2 g [id number] Reid Daniels MD 36.7 mL/hr at 11/11/24 [...] Reid Daniels MD 20 mg at 11/10/24 1741 rOPINIRole (Requip) tablet 2 mg 2 mg Oral BID Anthony Reyes MD 2 mg at 11/11/24 0826 sodium chloride 0.9 % flush 10 mL [...] from the original note were not included. [facility] Department of Surgery Division of Vascular Surgery Surgery Progress Note 11/11/24 Bev Borja Subjective Subjective: HPI 64yoM PMHx COPD, T2DM, HLD, HTN, RLS, CAD s/p PCI (on Xarelto) s/p pacemaker c/b left SANDIP pseudoaneurysm s/p thrombin injection 09/21/24, CLI s/p left femoral endarterectomy with EIA/COMMUNITY CASE MANAGER stenting 10/17/24, who [facility] [...] Airway None Output by Drain (mL) 11/09/24 07 - 11/09/24 18511/09/24 1900 - 11/10/24 0659 11/10/24 07 - 11/10/24 1859 11/10/24 1900 - 11/11/24 [...] 09/21/24, CLI s/p left femoral endarterectomy with EIA/COMMUNITY CASE MANAGER stenting 10/17/24, who [facility] [...] Monitor and Manage Urinary Retention Flowsheets (Taken 11/09/20243) Urinary Elimination Promotion: absorbent pad/diaper use encouraged [...] 09/21/24, CLI s/p left femoral endarterectomy with EIA/COMMUNITY CASE MANAGER stenting 10/17/24, who [facility] [...] 09/21/24, CLI s/p left femoral endarterectomy with EIA/COMMUNITY CASE MANAGER stenting 10/17/24, who [facility] [...] footwear used Taken 11/09/20241622 by Deric Olivas, CHRISTIAN Pressure Reduction Techniques: frequent weight shift encouraged [...] Barraza RN Authorized by: Nathaly Nowak MD Universal Protocol: Verbal consent obtained?: Yes Written consent [...] selection rationale: Left pacemaker Catheter Lot #: [id number] 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 Patient reports he went to [facility] 12th floor via w/c yesterday to [...] Mobility: Ambulatory- community (was utilizing scooter at [facility] since discharge) Mobility [place]: Independent gait with device History of Falls: [...] Mobility Bed Mobility Exam: Scooting/Bridging Level of [place]: Modified independence Bed Mobility Exam: Supine to Sit Level of [place]: Modified [place] Transfers Transfer Exam: Sit to stand Level of [place]: Modified independence Assistive Device: Rollator Transfer Exam: Stand to Sit Level of [place]: Modified independence Assistive Device: Rollator Ambulation Device: [...] Mobility Ambulatory- community (was utilizing scooter at [employer] since discharge) Mobility [place] Independent gait with device History of Falls [...] distal to knee) BED MOBILITY Level of [place] Physical/Non-physical Assist Adaptive Equipment Utilized Scooting/ Bridging Modified independence Supine to Sit Modified [place] TRANSFERS Level of [place] Physical/Non-physical Assist Adaptive Equipment Utilized Sit to Stand Modified independence Rollator Stand to sit Modified independence Rollator Toilet Transfer Modified independence Grab bar FUNCTIONAL MOBILITY Ambulation Modified independent 200ft x2 with seated rest break between bouts; RPE 5-7/10. Cues forsafety with rollator brakes. Rollator Comments BALANCE Postural Appearance Posture: Within Functional Limits Level of [place] Balance Support Static Sit Independent Feet supported Dynamic Sit Independent Feet supported Static Stand Independent Right upper extremity support, Left upper extremity support (via rollator) Dynamic Stand Independent Right upper extremity support, Left upper extremity support (via rollator) STANDARDIZED ASSESSMENTS [facility] 6-Click Daily Activities Help from Other: Don/Doff Regular Lower Body Clothings: None Help From Other: Bathing: None Help From Other: Toileting: None Help From Other: Don/Doff Upper Body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 Capillary blood specimen / Unknown 11/13/2024 8:23 AM EDT 11/13/2024 8:24 AM EDT Nathaly Nowak MD LAB POINT OF CARE TE ST DOCKED DEVICE UNSOLICITED RESULTS Final Result Performing Organization Address [facility] Co de Phone Number [facility] [address] [place] [address] * (ABNORMAL) Phosphorus, Plasma (11/13/2024 6:37 AM EDT) Phosphorus, Plasma 1.7(L) 2.5 - 4.5 mg/dL 11/13/2024 7:16 AM EDT [facility] Blood Venous blood specimen / Unknown Venipuncture / Unknown 11/13/2024 6:37 AM EDT 11/13/2024 6:44 AM EDT Nathaly Nowak MD LAB BLOOD ORDERABLES Final Resu lt Performing Organization Address [facility] Co de Phone Number [facility] [address] [place] [address] * Magnesium, Plasma (11/13/2024 6:37 AM EDT) Magnesium, Plasma 2.0 1.9 - 2.4 mg/dL 11/13/2024 7:16 AM EDT [facility] Blood Venous blood specimen / Unknown Venipuncture / Unknown 11/13/2024 6:37 AM EDT 11/13/2024 6:44 AM EDT Nathaly Nowak MD LAB BLOOD ORDERABLES Final Resu lt Performing Organization Address [facility] de Phone Number [facility] [address] [place] [address] * (ABNORMAL) CBC W/O Differential (11/13/2024 6:37 AM EDT) Pathologist [facility] WBC Count 11.72(H) 3.70 - 10.30 10*3/uL [...] lt [facility] [address] [place] [address] * (ABNORMAL) Basic Metabolic Panel, Plasma (11/13/2024 [...] lt [facility] [address] [place] [address] * (ABNORMAL) POCT glucose meter (11/12/2024 8:27 [...] Comment 11/12/2024 8:29 PM EDT [facility]ALTH[facility]ARE [facility] [employer] ID Nelda Gerber 11/13/19 8:29 PM EDT HEALTHCARE LAB Device ID [id number] 11/12/2024 8:29 PM EDT [facility]ARE [facility] Specimen Type POC Capillary 11/12/2024 8:29 PM EDT [facility] Blood Capillary blood specimen / Unknown 11/12/2024 8:27 PM EDT 11/12/2024 8:29 PM EDT Nathaly Nowak MD LAB POINT OF CARE TE ST DOCKED DEVICE UNSOLICITED RESULTS Final Result Performing Organization Address [facility] Co de Phone Number [facility]ARE [facility] [address] [place] [address] * (ABNORMAL) POCT glucose meter (11/12/2024 5:08 [...] Comment 11/12/2024 5:10 PM EDT [facility]ARE [facility] [employer] ID Wade Feliciano 5:10 PM EDT HEALTH[facility]ARE [facility] Device ID [id number] 11/12/2024 5:10 PM EDT [facility]ARE [facility] Specimen Type POC Capillary 11/12/2024 5:10 PM EDT [facility] Blood Capillary blood specimen / Unknown 11/12/2024 5:08 PM EDT 11/12/2024 5:10 PM EDT us Nathaly Nowak MD LAB POINT OF CARE TE ST DOCKED DEVICE UNSOLICITED RESULTS Final Result Performing Organization Address City/[facility]/ZIP Co de Phone Number [facility] [address] [place] [address] * (ABNORMAL) POCT glucose meter (11/12/2024 12:36 [...] Comment 11/12/2024 12:38 PM EDT [facility] [employer] ID Wade Feliciano 12:38 PM EDT [facility]ARE [facility] Device ID [id number] 11/12/2024 12:38 PM EDT [facility]ARE [facility] Specimen Type POC Capillary 11/12/2024 12:38 PM EDT [facility] Blood Capillary blood specimen / Unknown 11/12/2024 12:36 PM EDT 11/12/2024 12:38 PM EDT Nathaly Nowak MD LAB POINT OF CARE TE ST DOCKED DEVICE UNSOLICITED RESULTS Final Result Performing Organization Address [facility] Co de Phone Number [facility] [address] [place] [address] * Clostridiodes (Clostridium) difficile PCR (11/12/2024 9:50 AM EDT) C difficile PCR toxin B gene DNA Result Not Detected Not Detected 11/12/2024 11:54 AM [facility] St[facility] Rectum structure / Unknown [...] MICROBIOLOGY - GENERAL ATIYA FRITZ Final Result [facility] [address] [place] [address] * Comprehensive GI Panel by PCR (11/12/2024 9:50 AM EDT) [facility] Campylobacter PCR Result Not Detected Not Detected [...] MICROBIOLOGY - GENERAL ATIYA FRITZ Final Result [facility] [address] [place] [address] * C-reactive protein (11/12/2024 9:48 AM EDT) [...] lt [facility] [address] [place] [address] * (ABNORMAL) POCT glucose meter (11/12/2024 8:20 [...] Comment 11/12/2024 8:21 AM EDT [facility]ALTHCARE [facility] [employer] ID Wade Feliciano 8:21 AM EDT HEALTHCARE LAB Device ID [id number] 11/12/2024 8:21 AM EDT [facility]ARE [facility] Specimen Type POC Capillary 11/12/2024 8:21 AM EDT [facility] Blood Capillary blood specimen / Unknown 11/12/2024 8:20 AM EDT 11/12/2024 8:21 AM EDT us Nathaly Nowak MD LAB POINT OF CARE TE ST DOCKED DEVICE UNSOLICITED RESULTS Final Result Performing Organization Address City/[facility]/ZIP Co de Phone Number [facility] [address] [place] [address] * (ABNORMAL) POCT glucose meter (11/11/2024 8:18 [...] 11/11/2024 8:20 PM EDT [facility] [employer] ID Nelda Gerber 11/12/19 8:20 PM EDT [facility] Device ID [id number] 11/11/2024 8:20 PM EDT [facility] Specimen Type POC Capillary 11/11/2024 8:20 PM EDT [facility] Blood Capillary blood specimen / Unknown 11/11/2024 8:18 PM EDT 11/11/2024 8:20 PM EDT Nathaly Nowak MD LAB POINT OF CARE TE ST DOCKED DEVICE UNSOLICITED RESULTS Final Result Performing Organization Address City/State/[facility] Co de Phone Number [facility] [address] [place] [address] * (ABNORMAL) POCT glucose meter (11/11/2024 5:59 PM EDT) [facility] POCT Glucose 147(H) 74 - [...] 11/11/2024 6:01 PM EDT [facility] [employer] ID Wade Feliciano Tobias 6:01 PM EDT [facility] Device ID [id number] 11/11/2024 6:01 PM EDT [facility] Specimen Type POC Capillary 11/11/2024 6:01 PM EDT [facility] Blood Capillary blood specimen / Unknown 11/11/2024 5:59 PM EDT 11/11/2024 6:01 PM EDT us Nathaly Nowak MD LAB POINT OF CARE TE ST DOCKED DEVICE UNSOLICITED RESULTS Final Result Performing Organization Address [facility] de Phone Number [facility] [address] [place] [address] * POCT glucose meter (11/11/2024 5:20 PM EDT) [facility] POCT Glucose 84 74 - [...] Comment 11/11/2024 5:22 PM EDT [facility]ALTH[facility]ARE [facility] [employer] ID Braden Wade Tobias 5:22 PM EDT [facility] Device ID [id number] 11/11/2024 5:22 PM EDT [facility]ARE [facility] Specimen Type POC Capillary 11/11/2024 5:22 PM EDT [facility] Blood Capillary blood specimen / Unknown 11/11/2024 5:20 PM EDT 11/11/2024 5:22 PM EDT us Nathaly Nowak MD LAB POINT OF CARE TE ST DOCKED DEVICE UNSOLICITED RESULTS Final Result Performing Organization Address [facility] de Phone Number [facility] [address] [place] [address] * [place] NEGATIVE PRESSURE WOUND THERAPY DME [...] Comment 11/11/2024 12:10 PM EDT HEALTHCARE [facility] [employer] ID Wade Feliciano 12:10 PM EDT [employer] [facility] Device ID [id number] 11/11/2024 12:10 PM EDT [facility] Specimen Type POC Capillary 11/11/2024 12:10 PM EDT [facility] Blood Capillary blood specimen / Unknown 11/11/2024 12:08 PM EDT 11/11/2024 12:10 PM EDT Nathaly Nowak MD LAB POINT OF CARE TE ST DOCKED DEVICE UNSOLICITED RESULTS Final Result [facility] [address] [place] [address] * (ABNORMAL) POCT glucose meter (11/11/2024 9:08 [...] Comment 11/11/2024 9:09 AM EDT [facility]ARE [facility] [employer] ID Wade Feliciano Tobias 9:09 AM EDT [facility]ALTH[facility]ARE [facility] Device ID [id number] 11/11/2024 9:09 AM EDT [facility]ALTH[facility]ARE [facility] Specimen Type POC Capillary 11/11/2024 9:09 AM EDT [facility] Blood Capillary blood specimen / Unknown 11/11/2024 9:08 AM EDT 11/11/2024 9:09 AM EDT Nathaly Nowak MD LAB POINT OF CARE TE ST DOCKED DEVICE UNSOLICITED RESULTS Final Result [facility] [address] [place] [address] * POCT glucose meter (11/11/2024 8:27 AM EDT) [facility] POCT Glucose 87 74 - [...] Comment 11/11/2024 8:28 AM EDT [facility]ALTH[facility]ARE [facility] [employer] ID Braden Wade Collado 8:28 AM EDT HEALTHCARE LAB Device ID [id number] 11/11/2024 8:28 AM EDT [facility]ALTH[facility]ARE [facility] Specimen Type POC Capillary 11/11/2024 8:28 AM EDT [facility]ALTH[facility]ARE [facility] Blood Capillary blood specimen / Unknown 11/11/2024 8:27 AM EDT 11/11/2024 8:28 AM EDT Nathaly Nowak MD LAB POINT OF CARE TE ST DOCKED DEVICE UNSOLICITED RESULTS Final Result Performing Organization Address City/[facility]/ZIP Co de Phone Number [facility] [address] [place] [address] * (ABNORMAL) Basic Metabolic Panel, Plasma (11/11/2024 [...] lt [facility] [address] [place] [address] * (ABNORMAL) CBC W/O Differential (11/11/2024 12:56 [...] lt [facility] [address] [place] [address] * (ABNORMAL) POCT glucose meter (11/10/2024 8:25 PM EDT) [facility] POCT Glucose 144(H) 74 - [...] Comment 11/10/2024 8:28 PM EDT [facility]ALTH[facility]ARE [facility] [employer] ID Nelda Gerber 11/11/19 8:28 PM EDT HEALTH[facility]ARE [facility] Device ID [id number] 11/10/2024 8:28 PM EDT [facility]ALTH[facility]ARE [facility] Specimen Type POC Capillary 11/10/2024 8:28 PM EDT [facility] Blood Capillary blood specimen / Unknown 11/10/2024 8:25 PM EDT 11/10/2024 8:28 PM EDT Nathaly Nowak MD LAB POINT OF CARE TE ST DOCKED DEVICE UNSOLICITED RESULTS Final Result [facility] [address] [place] [address] * (ABNORMAL) POCT glucose meter (11/10/2024 4:45 PM EDT) [facility] POCT Glucose 155(H) 74 - [...] 11/10/2024 4:47 PM EDT [facility] [employer] ID Esperanza Parks 11/10/2024 4:47 PM EDT [facility] Device ID [id number] 11/10/2024 4:47 PM EDT [facility] Specimen Type POC Capillary 11/10/2024 4:47 PM EDT [facility] Blood Capillary blood specimen / Unknown 11/10/2024 4:45 PM EDT 11/10/2024 4:47 PM EDT Nathaly Nowak MD LAB POINT OF CARE TE ST DOCKED DEVICE UNSOLICITED RESULTS Final Result Performing Organization Address City/[facility] Co de Phone Number [facility] [address] [place] [address] * (ABNORMAL) POCT glucose meter (11/10/2024 12:13 [...] Comment 11/10/2024 12:14 PM EDT [facility]ARE [facility] [employer] ID Esperanza Parks 11/10/2024 12:14 PM EDT HEALTH[facility]ARE [facility] Device ID [id number] 11/10/2024 12:14 PM EDT [facility]ALTH[facility]ARE [facility] Specimen Type POC Capillary 11/10/2024 12:14 PM EDT [facility] Blood Capillary blood specimen / Unknown 11/10/2024 12:13 PM EDT 11/10/2024 12:14 PM EDT Nathaly Nowak MD LAB POINT OF CARE TE ST DOCKED DEVICE UNSOLICITED RESULTS Final Result Performing Organization Address [facility] Co de Phone Number [facility] [address] [place] [address] * Vancomycin, Peak, Plasma Please draw ~2 hours after 0800 dose of vancomycin finishes infusing. Consider obtaining level via peripheral stick. If peripheral stick is not feasible, please ensure that line is flushed well prior to drawing level. Than... (11/10/2024 10:56 AM EDT) [facility] Vancomycin, Peak, Plasma 23.8 20.0 [...] ORDERABLES Final Res ult Performing Organization Address City/[facility]/ZIP Co de Phone Number [facility] [address] [place] [address] * (ABNORMAL) POCT glucose meter (11/10/2024 8:03 AM EDT) [facility] POCT Glucose 174(H) 74 - [...] testing. Comment 11/10/2024 8:04 AM EDT [facility] [employer] ID Esperanza Parks 11/10/2024 8:04 AM EDT HEALTHCARE LAB Device ID [id number] 11/10/2024 8:04 AM EDT [facility]ARE [facility] Specimen Type POC Capillary 11/10/2024 8:04 AM EDT [facility] Blood Capillary blood specimen / Unknown 11/10/2024 8:03 AM EDT 11/10/2024 8:04 AM EDT us Nathaly Nowak MD LAB POINT OF CARE TE ST DOCKED DEVICE UNSOLICITED RESULTS Final Result Performing Organization Address City/[facility]/ZIP Co de Phone Number [facility] [address] [place] [address] * Vancomycin, Trough, Plasma Please draw ~30 minutes prior to dose due at 0800 on 11/10. Please do NOThold dose awaiting level to return. Consider obtaining level via peripheral stick. If peripheral stick is not feasible, please ensure that line is... (11/10/2024 7:27 AM EDT) Pathologist [facility] Vancomycin, Trough, Plasma 16.2 10.0 - 20.0 ug/mL 11/10/2024 8:24 AM EDT [facility] Blood Venous blood specimen / Unknown Venipuncture / Unknown 11/10/2024 7:27 AM EDT 11/10/2024 7:51 AM EDT Narrative [facility] - 11/10/2024 8:24 AM EDT Therapeutic Trough level: 10-20ug/mL Supra-therapeutic Trough level: >20 ug/mL us Abigail Seay MD LAB BLOOD ORDERABLES Final Res ult [facility] [address] [place] [address] * (ABNORMAL) CBC and Differential (11/10/2024 12:31 AM EDT) [facility] WBC Count 10.80(H) 3.70 - 10.30 10*3/uL [...] lt [facility] [address] [place] [address] * (ABNORMAL) Comprehensive Metabolic Panel, Plasma (11/10/2024 [...] lt [facility] [address] [place] [address] * (ABNORMAL) POCT glucose meter (11/09/2024 8:04 PM EDT) Pathologist [facility] POCT Glucose 114(H) 74 - 99 mg/dL 11/09/2024 8:06 PM EDT [facility] Comment:Accuracy of a glucos e result [...] Comment 11/09/2024 8:06 PM EDT [facility]ALTH[facility]ARE [facility] [employer] ID Maximiliano Hnasen II 11/09/2024 8:06 PM EDT [facility]ARE [facility] Device ID [id number] 11/09/2024 8:06 PM EDT [facility] Specimen Type POC Capillary 11/09/2024 8:06 PM EDT [facility] Blood Capillary blood specimen / Unknown 11/09/2024 8:04 PM EDT 11/09/2024 8:06 PM EDT Nathaly Nowak MD LAB POINT OF CARE TE ST DOCKED DEVICE UNSOLICITED RESULTS Final Result Performing Organization Address City/[facility] Co de Phone Number [facility] [address] [place] [address] * (ABNORMAL) POCT glucose meter (11/09/2024 4:36 [...] 11/09/2024 4:38 PM EDT [facility] [employer] ID Kristian Sosa 11/09/2024 4:38 PM EDT HEALTHCARE LAB Device ID [id number] 11/09/2024 4:38 PM EDT [facility]ALTH[facility]ARE [facility] Specimen Type POC Capillary 11/09/2024 4:38 PM EDT [facility] Blood Capillary blood specimen / Unknown 11/09/2024 4:36 PM EDT 11/09/2024 4:38 PM EDT Nathaly Nowak MD LAB POINT OF CARE TE ST DOCKED DEVICE UNSOLICITED RESULTS Final Result Performing Organization Address City/[facility]/ZIP Co de Phone Number [facility] [address] [place] [id number] * PICC SINGLE LUMEN ([employer]) (11/09/2024 1:11 PM EDT) Narrative Estefani Barraza RN - 11/09/2024 1:11 PM EDT Estefani Barraza RN 11/09/2024 1:12 PM Insert PICC line Date/Time: 11/09/2024 1:11 PM Performed by: Estefani Barraza RN Authorized by: Nathaly Nowak MD [facility] Protocol: Verbal consent obtained?: Yes Written consent [...] selection rationale: Left pacemaker Catheter Lot #: [id number] 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[employer] Catheter placed: Single lumen Catheter size: 4 [...] POCT glucose meter (11/09/2024 11:50 AM EDT) [facility] POCT Glucose 127(H) 74 - [...] Comment 11/09/2024 11:51 AM EDT [facility]ALTH[facility]ARE [facility] [employer] ID Kristian Sosa 11/09/2024 11:51 AM EDT HEALTH[facility]ARE LAB Device ID [id number] 11/09/2024 11:51 AM EDT [facility]ALTH[facility]ARE [facility] Specimen Type POC Capillary 11/09/2024 11:51 AM EDT [facility] Blood Capillary blood specimen / Unknown 11/09/2024 11:50 AM EDT 11/09/2024 11:51 AM EDT Nathaly Nowak MD LAB POINT OF CARE TE ST DOCKED DEVICE UNSOLICITED RESULTS Final Result Performing Organization Address City/State/[facility] Co de Phone Number [facility]ARE [facility] [address] [place] [address] * (ABNORMAL) POCT glucose meter (11/09/2024 8:14 AM EDT) [facility] POCT Glucose 153(H) 74 - [...] 11/09/2024 8:15 AM EDT [facility] [employer] ID Kristian Sosa 11/09/2024 8:15 AM EDT HEALTH[facility]ARE LAB Device ID [id number] 11/09/2024 8:15 AM EDT [facility]ALTH[facility]ARE [facility] Specimen Type POC Capillary 11/09/2024 8:15 AM EDT [facility] Blood Capillary blood specimen / Unknown 11/09/2024 8:14 AM EDT 11/09/2024 8:15 AM EDT Nathaly Nowak MD LAB POINT OF CARE TE ST DOCKED DEVICE UNSOLICITED RESULTS Final Result [facility] [address] [place] [id number] * (ABNORMAL) CBC and Differential (11/09/2024 4:15 [...] 4:15 AM EDT 11/09/2024 4:18 AM EDT [facility] - 11/09/2024 4:26 AM EDT Therapeutic decision making should be based on absolute values, rather than percentages. us Nathaly Nowak MD LAB BLOOD ORDERABLES Final Resu lt [facility] [address] [place] [address] * (ABNORMAL) Comprehensive Metabolic Panel, Plasma (11/09/2024 [...] lt [facility] [address] [place] [address] * (ABNORMAL) POCT glucose meter (11/09/2024 3:30 [...] Comment 11/09/2024 3:31 AM EDT [facility] [employer] ID Maximiliano Hansen II 11/09/2024 3:31 AM EDT [facility]ALTH[facility]ARE [facility] Device ID [id number] 11/09/2024 3:31 AM EDT [facility]ALTH[facility]ARE [facility] Specimen Type POC Capillary 11/09/2024 3:31 AM EDT [facility] Blood Capillary blood specimen / Unknown 11/09/2024 3:30 AM EDT 11/09/2024 3:31 AM EDT us Nathaly Nowak MD LAB POINT OF CARE TE ST DOCKED DEVICE UNSOLICITED RESULTS Final Result [facility] [address] [place] [address] * (ABNORMAL) POCT glucose meter (11/08/2024 7:21 PM EDT) [facility] POCT Glucose 292(H) 74 - [...] Comment 11/08/2024 7:22 PM EDT [facility]ALTH[facility]ARE [facility] [employer] ID Maximiliano Hansen II 11/08/2024 7:22 PM EDT [facility]ALTH[facility]ARE LAB Device ID [id number] 11/08/2024 7:22 PM EDT [facility]ARE [facility] Specimen Type POC Capillary 11/08/2024 7:22 PM EDT [facility] Blood Capillary blood specimen / Unknown 11/08/2024 7:21 PM EDT 11/08/2024 7:22 PM EDT Nathaly Nowak MD LAB POINT OF CARE TE ST DOCKED DEVICE UNSOLICITED RESULTS Final Result Performing Organization Address City/[facility]/ZIP Co de Phone Number [facility] [address] [place] [address] * (ABNORMAL) POCT glucose meter (11/08/2024 5:12 PM EDT) [facility] POCT Glucose 178(H) 74 - [...] 11/08/2024 5:14 PM EDT [facility] [employer] ID Estefani Sheth 11/08/2024 5:14 PM EDT HEALTH[facility]ARE LAB Device ID [id number] 11/08/2024 5:14 PM EDT [facility] Specimen Type POC Capillary 11/08/2024 5:14 PM EDT [facility] Blood Capillary blood specimen / Unknown 11/08/2024 5:12 PM EDT 11/08/2024 5:14 PM EDT Nathaly Nowak MD LAB POINT OF CARE TE ST DOCKED DEVICE UNSOLICITED RESULTS Final Result Performing Organization Address City/[facility] Co de Phone Number [facility] [address] [place] [address] * (ABNORMAL) POCT glucose meter (11/08/2024 12:03 PM EDT) [facility] POCT Glucose 191(H) 74 - [...] Comment 11/08/2024 12:05 PM EDT [facility]ARE [facility] [employer] ID Estefani Sheth 11/08/2024 12:05 PM EDT [facility]ALTH[facility]ARE [facility] Device ID [id number] 11/08/2024 12:05 PM EDT [facility]ARE [facility] Specimen Type POC Capillary 11/08/2024 12:05 PM EDT [facility] Blood Capillary blood specimen / Unknown 11/08/2024 12:03 PM EDT 11/08/2024 12:05 PM EDT us Nathaly Nowak MD LAB POINT OF CARE TE ST DOCKED DEVICE UNSOLICITED RESULTS Final Result Performing Organization Address City/[facility]/ZIP Co de Phone Number [facility] [address] [place] [address] * Vancomycin, Peak, Plasma Please draw ~2 hours after 11/08 0600 dose of vancomycin finishes infusing.Consider obtaining level via peripheral stick. If peripheral stick is not feasible, please ensure that line is flushed well prior to drawing level.... (11/08/2024 9:24 AM EDT) [facility] Vancomycin, Peak, Plasma 29.1 20.0 [...] lt [facility] [address] [place] [address] * (ABNORMAL) POCT glucose meter (11/08/2024 8:00 AM EDT) [facility] POCT Glucose 150(H) 74 - [...] Comment 11/08/2024 8:01 AM EDT [facility] [employer] ID Estefani Sheth 11/08/2024 8:01 AM EDT [facility]ALTH[facility]ARE [facility] Device ID [id number] 11/08/2024 8:01 AM EDT [facility]ALTH[facility]ARE [facility] Specimen Type POC Capillary 11/08/2024 8:01 AM EDT [facility] Blood Capillary blood specimen / Unknown 11/08/2024 8:00 AM EDT 11/08/2024 8:01 AM EDT us Nathaly Nowak MD LAB POINT OF CARE TE ST DOCKED DEVICE UNSOLICITED RESULTS Final Result [facility] [address] [place] [address] * (ABNORMAL) CBC and Differential (11/08/2024 4:39 [...] [facility] [address] [place] [address] * (ABNORMAL) Comprehensive Metabolic Panel, Plasma (11/08/2024 4:39 AM EDT) [facility] Glucose, Plasma 255(H) 74 - 99 mg/dL [...] lt [facility] [address] [place] [address] * Vancomycin, Trough, Plasma Please draw ~30 [...] lt [facility] [address] [place] [address] * (ABNORMAL) POCT glucose meter (11/07/2024 7:26 PM EDT) POCT Glucose 172(H) 74 - 99 mg/dL 11/07/2024 7:28 PM EDT [facility] [employer] Comment:Accuracy of a glucos e result [...] Comment 11/07/2024 7:28 PM EDT [facility]ALTHCARE [facility] [employer] ID Maximiliano Hansen II 11/07/2024 7:28 PM EDT [facility] Device ID [id number] 11/07/2024 7:28 PM EDT [facility] Specimen Type POC Capillary 11/07/2024 7:28 PM EDT [facility]ALTH[facility] Blood Capillary blood specimen / Unknown 11/07/2024 7:26 PM EDT 11/07/2024 7:28 PM EDT us Nathaly Nowak MD LAB POINT OF CARE TE ST DOCKED DEVICE UNSOLICITED RESULTS Final Result Performing Organization Address City/State/[facility] Co de Phone Number [facility] [address] [place] [address] * (ABNORMAL) POCT glucose meter (11/07/2024 5:51 PM EDT) [facility] POCT Glucose 183(H) 74 - [...] 11/07/2024 5:52 PM EDT [facility] [employer] ID Brigitte Castellon 11/07/2024 5:52 PM EDT [facility] Device ID [id number] 11/07/2024 5:52 PM EDT [facility] Specimen Type POC Capillary 11/07/2024 5:52 PM EDT [facility]ALTH[facility] Blood Capillary blood specimen / Unknown 11/07/2024 5:51 PM EDT 11/07/2024 5:52 PM EDT Nathaly Nowak MD LAB POINT OF CARE TE ST DOCKED DEVICE UNSOLICITED RESULTS Final Result Performing Organization Address City/[facility] Co de Phone Number [facility]ARE [facility] [address] [place] [address] * (ABNORMAL) POCT glucose meter (11/07/2024 4:47 [...] for testing. Comment 11/07/2024 4:48 PM EDT [facility] [employer] ID Estefani Sheth 11/07/2024 4:48 PM EDT [employer] Device ID [id number] 11/07/2024 4:48 PM EDT [facility] Specimen Type POC Capillary 11/07/2024 4:48 PM EDT [facility] Blood Capillary blood specimen / Unknown 11/07/2024 4:47 PM EDT 11/07/2024 4:48 PM EDT Nathaly Nowak MD LAB POINT OF CARE TE ST DOCKED DEVICE UNSOLICITED RESULTS Final Result Performing Organization Address City/[facility] Co de Phone Number [facility] [address] [place] [address] * (ABNORMAL) POCT glucose meter (11/07/2024 12:22 [...] Comment 11/07/2024 12:24 PM EDT [facility]ALTHCARE [facility] [employer] ID Estefani Sheth 11/07/2024 12:24 PM EDT [facility]ALTH[facility]ARE LAB Device ID [id number] 11/07/2024 12:24 PM EDT [facility]ALTH[facility]ARE [facility] Specimen Type POC Capillary 11/07/2024 12:24 PM EDT [facility]ALTH[facility] Blood Capillary blood specimen / Unknown 11/07/2024 12:22 PM EDT 11/07/2024 12:24 PM EDT us Nathaly Nowak MD LAB POINT OF CARE TE ST DOCKED DEVICE UNSOLICITED RESULTS Final Result [facility] [address] [place] [id number] * (ABNORMAL) CBC and Differential (11/07/2024 11:37 [...] AM EDT 11/07/2024 12:24 PM EDT Narrative [facility] - 11/07/2024 12:33 PM EDT Therapeutic decision making should be based on absolute values, rather than percentages. us Nathaly Nowak MD LAB BLOOD ORDERABLES Final Resu lt [facility] [address] [place] [address] * (ABNORMAL) Comprehensive Metabolic Panel, Plasma (11/07/2024 11:37 AM EDT) Glucose, Plasma 173(H) 74 - 99 mg/dL 11/07/2024 1:31 PM EDT [facility] BUN, Plasma 13 8 - 23 mg/dL 11/07/2024 1:31 PM EDT [facility] Creatinine, Plasma 0.92 0.70 - 1.20 mg/dL 11/07/2024 1:31 PM EDT [facility] BUN/Creatinine Ratio 14 11/07/2024 1:31 PM EDT [facility] lt [facility] [address] [place] [address] * Type and Screen (11/07/2024 11:37 AM [...] ORDERABLES F inal Result Performing Organization Address City/[facility]/ZIP Co de Phone Number BLOOD BANK [address] [place] [address], [place] * (ABNORMAL) POCT glucose meter (11/07/2024 10:34 AM EDT) Pathologist [facility] POCT Glucose 199(H) 74 - 99 mg/dL [...] Comment 11/07/2024 10:36 AM EDT [facility]ALTHCARE [facility] [employer] ID Yoselyn Irahetayla Beatrice 11/07/2024 10:36 AM EDT [employer] Device ID [id number] 11/07/2024 10:36 AM EDT HEALTHCARE [facility] Specimen Type POC Capillary 11/07/2024 10:36 AM EDT [facility]ALTH[facility] Blood Capillary blood specimen / Unknown 11/07/2024 10:34 AM EDT 11/07/2024 10:36 AM EDT us Nathaly Nowak MD LAB POINT OF CARE TE ST DOCKED DEVICE UNSOLICITED RESULTS Final Result Performing Organization Address City/State/[facility] Co de Phone Number HEALTHCARE LAB [address] [place] [address] * (ABNORMAL) POCT glucose meter (11/07/2024 9:34 AM EDT) [facility] POCT Glucose 208(H) 74 - [...] 11/07/2024 9:36 AM EDT [facility] [employer] ID [place]Yoselyn bellamyylin 11/07/2024 9:36 AM EDT HEALTHCARE LAB Device ID [id number] 11/07/2024 9:36 AM EDT [facility] Specimen Type POC Capillary 11/07/2024 9:36 AM EDT [facility]ALTH[facility] Blood Capillary blood specimen / Unknown 11/07/2024 9:34 AM EDT 11/07/2024 9:36 AM EDT Nathaly Nowak MD LAB POINT OF CARE TE ST DOCKED DEVICE UNSOLICITED RESULTS Final Result Performing Organization Address City/[facility]/ZIP Co de Phone Number [facility] [address] [place] [address] * (ABNORMAL) POCT glucose meter (11/07/2024 8:20 [...] Comment 11/07/2024 8:22 AM EDT [facility]ALTHCARE [facility] [employer] ID Estefani Sheth 11/07/2024 8:22 AM EDT [facility]ALTH[facility]ARE LAB Device ID [id number] 11/07/2024 8:22 AM EDT [facility]ALTH[facility]ARE [facility] Specimen Type POC Capillary 11/07/2024 8:22 AM EDT [facility] Blood Capillary blood specimen / Unknown 11/07/2024 8:20 AM EDT 11/07/2024 8:22 AM EDT us Nathaly Nowak MD LAB POINT OF CARE TE ST DOCKED DEVICE UNSOLICITED RESULTS Final Result [facility] [address] [place] [address] * (ABNORMAL) POCT glucose meter (11/07/2024 7:21 [...] Comment 11/07/2024 7:22 AM EDT [facility]ALTH[facility] [employer] ID Brigitte Castellon 11/07/2024 7:22 AM EDT HEALTHCARE LAB Device ID [id number] 11/07/2024 7:22 AM EDT [facility]ALTH[facility]ARE [facility] Specimen Type POC Capillary 11/07/2024 7:22 AM EDT [facility] Blood Capillary blood specimen / Unknown 11/07/2024 7:21 AM EDT 11/07/2024 7:22 AM EDT us Nathaly Nowak MD LAB POINT OF CARE TE ST DOCKED DEVICE UNSOLICITED RESULTS Final Result Performing Organization Address City/State/[facility] Co de Phone Number [facility] [address] [place] [address] * (ABNORMAL) POCT glucose meter (11/07/2024 6:25 AM EDT) [facility] Signature POCT Glucose 144(H) 74 - 99 mg/dL [...] Comment 11/07/2024 6:27 AM EDT HEALTHCARE [facility] [employer] ID Nelda Gerber 11/08/19 6:27 AM EDT HEALTHCARE LAB Device ID [id number] 11/07/2024 6:27 AM EDT [facility]ALTH[facility]ARE [facility] Specimen Type POC Capillary 11/07/2024 6:27 AM EDT [facility]ALTH[facility] Blood Capillary blood specimen / Unknown 11/07/2024 6:25 AM EDT 11/07/2024 6:27 AM EDT us Nathaly Nowak MD LAB POINT OF CARE TE ST DOCKED DEVICE UNSOLICITED RESULTS Final Result Performing Organization Address City/[facility]/ZIP Co de Phone Number [facility]ALTH[facility]ARE [facility] [address] [place] [address] * (ABNORMAL) POCT glucose meter (11/07/2024 5:03 [...] for testing. Comment 11/07/2024 5:08 AM EDT [facility] [employer] ID Nelda Gerber 11/08/19 5:08 AM EDT [facility] Device ID [id number] 11/07/2024 5:08 AM EDT [facility] Specimen Type POC Capillary 11/07/2024 5:08 AM EDT [facility] Blood Capillary blood specimen / Unknown 11/07/2024 5:03 AM EDT 11/07/2024 5:08 AM EDT us Nathaly Nowak MD LAB POINT OF CARE TE ST DOCKED DEVICE UNSOLICITED RESULTS Final Result Performing Organization Address City/[facility]/ZIP Co de Phone Number [facility] [address] [place] [address] * (ABNORMAL) POCT glucose meter (11/07/2024 4:16 [...] Comment 11/07/2024 4:18 AM EDT [facility]ALTHCARE [facility] [employer] ID Nelda Gerber 11/08/19 4:18 AM EDT HEALTHCARE LAB Device ID [id number] 11/07/2024 4:18 AM EDT [facility]ALTH[facility]ARE [facility] Specimen Type POC Capillary 11/07/2024 4:18 AM EDT [facility] Blood Capillary blood specimen / Unknown 11/07/2024 4:16 AM EDT 11/07/2024 4:18 AM EDT Nathaly Nowak MD LAB POINT OF CARE TE ST DOCKED DEVICE UNSOLICITED RESULTS Final Result Performing Organization Address City/[facility] Co de Phone Number [facility]ALTH[facility]ARE LAB [address] [place] [address] * (ABNORMAL) POCT glucose meter (11/07/2024 3:21 [...] Comment 11/07/2024 3:23 AM EDT [facility] [employer] ID Nelda Gerber 11/08/19 3:23 AM EDT HEALTHCARE LAB Device ID [id number] 11/07/2024 3:23 AM EDT [facility]ALTH[facility]ARE [facility] Specimen Type POC Capillary 11/07/2024 3:23 AM EDT [facility] Blood Capillary blood specimen / Unknown 11/07/2024 3:21 AM EDT 11/07/2024 3:23 AM EDT Nathaly Nowak MD LAB POINT OF CARE TE ST DOCKED DEVICE UNSOLICITED RESULTS Final Result Performing Organization Address City/[facility]/ZIP Co de Phone Number [facility] [address] [place] [address] * (ABNORMAL) POCT glucose meter (11/07/2024 2:10 AM EDT) Pathologist [facility] POCT Glucose 146(H) 74 - 99 mg/dL [...] Comment 11/07/2024 2:12 AM EDT [facility]ALTHCARE [facility] [employer] ID Nelda Gerber 11/08/19 2:12 AM EDT [facility] Device ID [id number] 11/07/2024 2:12 AM EDT HEALTHCARE [facility] Specimen Type POC Capillary 11/07/2024 2:12 AM EDT [employer] Blood Capillary blood specimen / Unknown 11/07/2024 2:10 AM EDT 11/07/2024 2:12 AM EDT us Nathaly Nowak MD LAB POINT OF CARE TE ST DOCKED DEVICE UNSOLICITED RESULTS Final Result Performing Organization Address City/State/[facility] Co de Phone Number HEALTHCARE LAB [address] [place] [address] * (ABNORMAL) POCT glucose meter (11/07/2024 1:08 AM EDT) Pathologist [facility] POCT Glucose 135(H) 74 - 99 mg/dL [...] 11/07/2024 1:10 AM EDT [facility] [employer] ID Nelda Gerber 11/08/19 1:[address] [employer] HE[facility]ARE LAB Device ID [id number] 11/07/2024 1:10 AM EDT HEALTHCARE LAB Specimen Type POC Capillary 11/07/2024 1:10 AM EDT [facility] Blood Capillary blood specimen / Unknown 11/07/2024 1:08 AM EDT 11/07/2024 1:10 AM EDT Nathaly Nowak MD LAB POINT OF CARE TE ST DOCKED DEVICE UNSOLICITED RESULTS Final Result [facility] [address] [place] [address] * (ABNORMAL) POCT glucose meter (11/07/2024 12:10 [...] for testing. Comment 11/07/2024 12:13 AM EDT [facility] [employer] ID Nelda Gerber 11/08/19 12:13 AM EDT HEALTHCARE [facility] Device ID [id number] 11/07/2024 12:13 AM EDT [facility] Specimen Type POC Capillary 11/07/2024 12:13 AM EDT [facility] Blood Capillary blood specimen / Unknown 11/07/2024 12:10 AM EDT 11/07/2024 12:13 AM EDT Nathaly Nowak MD LAB POINT OF CARE TE ST DOCKED DEVICE UNSOLICITED RESULTS Final Result [facility] [address] [place] [address] * (ABNORMAL) POCT glucose meter (11/06/2024 11:14 [...] Comment 11/06/2024 11:16 PM EDT [facility]ALTH[facility]ARE [facility] [employer] ID Nelda Gerber 11/07/19 11:16 PM EDT HEALTHCARE LAB Device ID [id number] 11/06/2024 11:16 PM EDT [facility]ALTH[facility]ARE [facility] Specimen Type POC Capillary 11/06/2024 11:16 PM EDT [facility] Blood Capillary blood specimen / Unknown 11/06/2024 11:14 PM EDT 11/06/2024 11:16 PM EDT Nathaly Nowak MD LAB POINT OF CARE TE ST DOCKED DEVICE UNSOLICITED RESULTS Final Result Performing Organization Address City/State/[facility] Co de Phone Number [facility]ARE [facility] [address] [place] [address] * (ABNORMAL) POCT glucose meter (11/06/2024 10:07 [...] Comment 11/06/2024 10:09 PM EDT [facility] [employer] ID Nelda Gerber 11/07/19 10:09 PM EDT HEALTHCARE LAB Device ID [id number] 11/06/2024 10:09 PM EDT [facility]ALTH[facility]ARE [facility] Specimen Type POC Capillary 11/06/2024 10:09 PM EDT [facility] Blood Capillary blood specimen / Unknown 11/06/2024 10:07 PM EDT 11/06/2024 10:09 PM EDT us Nathaly Nowak MD LAB POINT OF CARE TE ST DOCKED DEVICE UNSOLICITED RESULTS Final Result [facility] [address] [place] [address] * (ABNORMAL) POCT glucose meter (11/06/2024 8:22 PM EDT) Pathologist [facility] POCT Glucose 256(H) 74 - 99 mg/dL 11/06/2024 8:25 PM EDT [facility] Comment:Accuracy of a glucos e result [...] for testing. Comment 11/06/2024 8:25 PM EDT [facility] [employer] ID Nelda Gerber 11/07/19 8:25 PM EDT [facility] Device ID [id number] 11/06/2024 8:25 PM EDT [facility] Specimen Type POC Capillary 11/06/2024 8:25 PM EDT [facility] Blood Capillary blood specimen / Unknown 11/06/2024 8:22 PM EDT 11/06/2024 8:25 PM EDT Nathaly Nowak MD LAB POINT OF CARE TE ST DOCKED DEVICE UNSOLICITED RESULTS Final Result [facility] [address] [place] [address] * (ABNORMAL) POCT glucose meter (11/06/2024 7:31 PM EDT) [facility] POCT Glucose 359(H) 74 - [...] Comment 11/06/2024 7:32 PM EDT [facility]ALTH[facility] [employer] ID Nelda Gerber 11/07/19 7:32 PM EDT HEALTH[facility]ARE LAB Device ID [id number] 11/06/2024 7:32 PM EDT [facility] Specimen Type POC Capillary 11/06/2024 7:32 PM EDT [facility] Blood Capillary blood specimen / Unknown 11/06/2024 7:31 PM EDT 11/06/2024 7:32 PM EDT Nathaly Nowak MD LAB POINT OF CARE TE ST DOCKED DEVICE UNSOLICITED RESULTS Final Result Performing Organization Address City/[facility]/ZIP Co de Phone Number [facility] [address] [place] [address] * (ABNORMAL) POCT glucose meter (11/06/2024 6:15 [...] Comment 11/06/2024 6:17 PM EDT [facility]ALTH[facility] [employer] ID Estefani Sheth 11/06/2024 6:17 PM EDT [facility]ALTH[facility]ARE LAB Device ID [id number] 11/06/2024 6:17 PM EDT [facility]ALTH[facility]ARE [facility] Specimen Type POC Capillary 11/06/2024 6:17 PM EDT [facility] Blood Capillary blood specimen / Unknown 11/06/2024 6:15 PM EDT 11/06/2024 6:17 PM EDT Nathaly Nowak MD LAB POINT OF CARE TE ST DOCKED DEVICE UNSOLICITED RESULTS Final Result Performing Organization Address City/[facility]/ZIP Co de Phone Number [facility] [address] [place] [address] * (ABNORMAL) POCT glucose meter (11/06/2024 4:57 PM EDT) [facility] POCT Glucose 417(H) 74 - [...] Comment 11/06/2024 4:58 PM EDT [facility]ALTH[facility]ARE [facility] [employer] ID Estefani Sheth 11/06/2024 4:58 PM EDT [employer] Device ID [id number] 11/06/2024 4:58 PM EDT HEALTHCARE [facility] Specimen Type POC Capillary 11/06/2024 4:58 PM EDT [facility] Blood Capillary blood specimen / Unknown 11/06/2024 4:57 PM EDT 11/06/2024 4:58 PM EDT us Nathaly Nowak MD LAB POINT OF CARE TE ST DOCKED DEVICE UNSOLICITED RESULTS Final Result Performing Organization Address City/State/[facility] Co de Phone Number HEALTHCARE LAB [address] [place] [address] * (ABNORMAL) POCT glucose meter (11/06/2024 2:08 PM EDT) [facility] POCT Glucose 253(H) 74 - [...] 11/06/2024 2:09 PM EDT [facility] [employer] ID Brigitte Castellon 11/06/2024 2:09 PM EDT HEALTH[facility]ARE LAB Device ID [id number] 11/06/2024 2:09 PM EDT [facility]ALTH[facility] Specimen Type POC Capillary 11/06/2024 2:09 PM EDT [facility] Blood Capillary blood specimen / Unknown 11/06/2024 2:08 PM EDT 11/06/2024 2:09 PM EDT Nathaly Nowak MD LAB POINT OF CARE TE ST DOCKED DEVICE UNSOLICITED RESULTS Final Result Performing Organization Address City/[facility] Co de Phone Number [facility]ARE [facility] [address] [place] [address] * (ABNORMAL) POCT glucose meter (11/06/2024 12:27 [...] Comment 11/06/2024 12:28 PM EDT [facility] [employer] ID Jacinta Galloway 11/06/2024 12:28 PM EDT HEALTHCARE LAB Device ID [id number] 11/06/2024 12:28 PM EDT [facility]ALTH[facility]ARE [facility] Specimen Type POC Capillary 11/06/2024 12:28 PM EDT [facility] Blood Capillary blood specimen / Unknown 11/06/2024 12:27 PM EDT 11/06/2024 12:28 PM EDT Nathaly Nowak MD LAB POINT OF CARE TE ST DOCKED DEVICE UNSOLICITED RESULTS Final Result [facility] [address] [place] [address] * (ABNORMAL) Tissue Culture and Gram Stain (11/06/2024 11:34 AM EDT) Culture Moderate Growth 7:35 AM EDT [facility] Culture 2+ Enterobacter cloacae complex(A) ANGÉLICA 11/15/2024 7:35 AM EDT [facility] Comment: This isolate has been identified using the FDA Approved [employer] System The organism value for this result has been updated. These results have been appended to the previously preliminary verified report. Edited result: Previously reported as Gram Negative Jesus on 11/07/2024 at 1434 EDT. Culture 2+ Streptococcus mitis/oralis group(A) ANGÉLICA 11/15/2024 7:35 AM EDT [facility] Comment: This isolate has been identified using the FDA Approved [employer] System The organism value for this result has been updated. These results have been appended to the previously preliminary verified report. Culture 2+ Pasteurella stomatis(A) ANGÉLICA 11/15/2024 7:35 AM EDT [facility] Comment: This result was determined by [employer] tof mass spectrometry using the ZALP database and is for research use only. [...] GENERAL ATIYA FRITZ Edited Result - Final [facility] [address] [place] [address] * (ABNORMAL) Anaerobic Culture (11/06/2024 11:34 AM EDT) Culture No anaerobes isolated 11/14/2024 1:25 PM EDT [facility] Culture Staphylococcus pseudintermedius( A) 11/14/2024 1:25 PM EDT [facility] Comment: This result was determined by [employer] tof mass spectrometry using the ZALP database and is for research use only. [...] Final [facility] [address] [place] [address] * (ABNORMAL) Routine Culture and Gram Stain (11/06/2024 11:29 AM EDT) Culture Moderate Growth 5:29 PM EDT [facility] Culture Enterobacter cloacae complex(A) 11/08/2024 5:29 PM EDT [facility] Comment: This isolate has been identified using the FDA Approved [employer] System For susceptibility results refer to: - [id number] The organism value for this result has [...] Result [facility] [address] [place] [address] * Fungal Culture, Routine (11/06/2024 11:29 AM EDT) Culture No Fungal Growth at 1 Week 11/13/2024 8:29 AM EDT [facility] Swab Topography unknown / Unknown 11/06/2024 11:29 AM EDT 11/06/2024 12:19 PM EDT Comment:Pre-op diagnosis: Surgical wound infection [T81.49XA] us Nathaly Nowak MD LAB MICROBIOLOGY - GENERAL ORDE RABONEIDA Final Result [facility] [address] [place] [address] * (ABNORMAL) Anaerobic Culture (11/06/2024 11:29 AM EDT) Culture No anaerobes isolated 11/14/2024 1:25 PM EDT [facility] Culture Streptococcus mitis/oralis group(A) 11/14/2024 1:25 PM EDT [facility] Comment: This result was determined by [employer] tof mass spectrometry using the ZALP database and is for research use only. [...] has been identified using the FDA Approved [employer] System This is an appended report. These [...] Result - Final Performing Organization Address [facility]/ZIP Co de Phone Number [facility] [address] [place] [address] * Routine Culture and Gram Stain (11/06/2024 [...] ORDE LAM Final Result Performing Organization Address City/[facility]/ZIP Co de Phone Number [facility] [address] [place] [address] * Fungal Culture, Routine (11/06/2024 11:28 AM EDT) Culture No Fungal Growth at 1 Week 11/13/2024 8:29 AM EDT [facility] Swab Topography unknown / Unknown 11/06/2024 11:28 AM EDT 11/06/2024 12:20 PM EDT Comment:Pre-op diagnosis: Surgical wound infection [T81.49XA] Nathaly Nowak MD LAB MICROBIOLOGY - GENERAL ORDE LAM Final Result Performing Organization Address City/[facility]/ZIP Co de Phone Number [facility] [address] [place] [address] * Anaerobic Culture (11/06/2024 11:28 AM EDT) Culture No growth at day 4 11/13/2024 12:53 PM EDT [facility] Swab Topography unknown / Unknown 11/06/2024 11:28 AM EDT 11/06/2024 12:20 PM EDT Comment:Pre-op diagnosis: Surgical wound infection [T81.49XA] Nathaly Nowak MD LAB [facility]BIOLOGY [facility] Final Result Performing Organization Address City/[facility]/ZIP Co de Phone Number [facility] [address] [place] [address] * (ABNORMAL) POCT glucose meter (11/06/2024 10:16 [...] Comment 11/06/2024 10:18 AM EDT [facility]ALTH[facility] [employer] ID Lacy Griffin 11/07/19 25 10:18 AM EDT [facility]ALTH[facility]ARE LAB Device ID [id number] 11/06/2024 10:18 AM EDT [facility]ALTH[facility]ARE [facility] Specimen Type POC Capillary 11/06/2024 10:18 AM EDT [facility] Blood Capillary blood specimen / Unknown 11/06/2024 10:16 AM EDT 11/06/2024 10:18 AM EDT us Nathaly Nowak MD LAB POINT OF CARE TE ST DOCKED DEVICE UNSOLICITED RESULTS Final Result [facility] [address] [place] [address] * (ABNORMAL) POCT glucose meter (11/06/2024 5:58 [...] Comment 11/06/2024 6:01 AM EDT [facility] [employer] ID Raj Laird 11/07/19 6:01 AM EDT HEALTHCARE LAB Device ID [id number] 11/06/2024 6:01 AM EDT [facility]ALTH[facility] Specimen Type POC Capillary 11/06/2024 6:01 AM EDT [facility] Blood Capillary blood specimen / Unknown 11/06/2024 5:58 AM EDT 11/06/2024 6:01 AM EDT Nathaly Nowak MD LAB POINT OF CARE TE ST DOCKED DEVICE UNSOLICITED RESULTS Final Result Performing Organization Address City/State/[facility] Co de Phone Number HEALTH[facility]ARE LAB [address] [place] [address] * (ABNORMAL) POCT glucose meter (11/06/2024 5:36 AM EDT) [facility] POCT Glucose 202(H) 74 - [...] Comment 11/06/2024 5:38 AM EDT [facility]ALTH[facility] [employer] ID Shahid Sanches 11/06/2024 5:38 AM EDT [facility]ALTH[facility]ARE LAB Device ID [id number] 11/06/2024 5:38 AM EDT [facility] Specimen Type POC Capillary 11/06/2024 5:38 AM EDT [facility]ALTH[facility] Blood Capillary blood specimen / Unknown 11/06/2024 5:36 AM EDT 11/06/2024 5:38 AM EDT us Nathaly Nowak MD LAB POINT OF CARE TE ST DOCKED DEVICE UNSOLICITED RESULTS Final Result Performing Organization Address City/[facility] Co de Phone Number [facility] [address] [place] [address] * (ABNORMAL) Hemoglobin A1c (11/06/2024 1:07 AM [...] Adults <6.0% Children and Adolescents <7.5% Source: [place] [employer]. Standards of medical care in diabetes,2017. Diabetes Care.2017:40 (suppl 1):S1-S135. us Nathaly Nowak MD LAB BLOOD ORDERABLES Final Resu lt Performing Organization Address City/[facility] [place] [address] * Blood Culture (Aerobic/Anaerobet Set) (11/06/2024 1:07 AM EDT) Culture No growth at day 5 11/11/2024 2:49 AM EDT [facility] Blood Structure of right hand / Unknown Venipuncture / Unknown 11/06/2024 1:07 AM EDT 11/06/2024 2:36 AM EDT Nathaly Nowak MD LAB MICROBIOLOGY - GENERAL ORDE RABLES Final Result Performing Organization Address City/[facility] Co de Phone Number [facility] [address] [id number] * Blood Culture (Aerobic/Anaerobet Set) (11/06/2024 1:07 AM EDT) Pathologist [facility] Culture No growth at day 5 11/11/2024 3:01 AM EDT [facility] Blood Structure of antecubital vein / Unknown Venipuncture / Unknown 11/06/2024 1:07 AM EDT 11/06/2024 2:36 AM EDT us Nathaly Nowak MD LAB MICROBIOLOGY - GENERAL ATIYA FRITZ Final Result [facility] [address] [place] [address] * (ABNORMAL) Basic metabolic panel (11/06/2024 1:07 [...] ORDERABLES Final Resu lt Performing Organization Address City/[facility]/ZIP Co de Phone Number [facility] [address] [place] [address] * Phosphorus (11/06/2024 1:07 AM EDT) Phosphorus, Plasma 3.2 2.5 - 4.5 mg/dL 11/06/2024 1:41 AM [facility] Venous blood specimen / Unknown Venipuncture / Unknown 11/06/2024 1:07 AM EDT 11/06/2024 1:12 AM EDT Nathaly Nowak MD LAB BLOOD ORDERABLES Final Resu lt Performing Organization Address [facility] Co de Phone Number [facility] [address] [place] [address] * Magnesium (11/06/2024 1:07 AM EDT) Magnesium, Plasma 2.2 1.9 - 2.4 mg/dL 11/06/2024 1:41 AM EDT [facility] Blood Venous blood specimen / Unknown Venipuncture / Unknown 11/06/2024 1:07 AM EDT 11/06/2024 1:12 AM EDT Nathaly Nowak MD LAB BLOOD ORDERABLES Final Resu lt Performing Organization Address City/[facility]/ZIP Co de Phone Number [facility] [address] [place] [address] * (ABNORMAL) CBC (11/06/2024 1:07 AM EDT) [...] [facility] [address] [place] [address] * [facility] (11/06/2024 12:58 AM EDT) Extra Hold for add-ons 11/06/2024 3:21 AM EDT [facility] Comment:Auto resulted. Blood Venous blood specimen / Unknown 11/06/2024 12:58 AM EDT 11/06/2024 1:13 AM EDT us Nathaly Nowak MD LAB BLOOD ORDERABLES Final Resu lt Performing Organization Address City/[facility]/ZIP Co de Phone Number [facility] [address] [place] [address] * Gold Top (11/06/2024 12:58 AM EDT) Extra Hold for add-ons 11/06/2024 3:21 AM EDT [facility] Comment:Auto resulted. Blood Venous blood specimen / Unknown 11/06/2024 12:58 AM EDT 11/06/2024 1:13 AM EDT us Nathaly Nowak MD LAB BLOOD ORDERABLES Final Resu lt Performing Organization Address [facility]/ZIP Co de Phone Number [facility] [address] [place] [address] * Light Green Top (11/06/2024 12:58 AM EDT) Extra Hold for add-ons 11/06/2024 3:21 AM EDT [facility] Comment:Auto resulted. Blood Venous blood specimen / Unknown 11/06/2024 12:58 AM EDT 11/06/2024 1:13 AM EDT us Nathaly Nowak MD LAB BLOOD ORDERABLES Final Resu lt Performing Organization Address [facility] Co de Phone Number [facility] [address] [place] [address] * Light Blue Top (11/06/2024 12:58 AM EDT) Extra Hold for add-ons 11/06/2024 3:21 AM EDT [facility] Comment:Auto resulted. Blood Venous blood specimen / Unknown 11/06/2024 12:58 AM EDT 11/06/2024 1:13 AM EDT us Nathaly Nowak MD LAB BLOOD ORDERABLES Final Resu lt Performing Organization Address [facility] Co de Phone Number [facility] [address] [place] [address] * Light Blue Top (11/06/2024 12:58 AM EDT) Pathologist [facility] Extra Hold for add-ons 11/06/2024 3:21 AM EDT [facility] Comment:Auto resulted. Blood Venous blood specimen / Unknown 11/06/2024 12:58 AM EDT 11/06/2024 1:13 AM EDT us Nathaly Nowak MD LAB BLOOD ORDERABLES Final Resu lt Performing Organization Address [facility] de Phone Number [facility] [address] [place] [address] * (ABNORMAL) POCT glucose meter (11/06/2024 12:45 AM EDT) Pathologist [facility] POCT Glucose 204(H) 74 - 99 mg/dL [...] 11/06/2024 12:48 AM EDT [facility] [employer] ID Raj Laird 11/07/19 25 12:48 AM EDT [facility] Device ID [id number] 11/06/2024 12:48 AM EDT [facility] Specimen Type POC Capillary 11/06/2024 12:48 AM EDT [facility] Blood Capillary blood specimen / Unknown 11/06/2024 12:45 AM EDT 11/06/2024 12:48 AM EDT Nathaly Nowak MD LAB POINT OF CARE TE ST DOCKED DEVICE UNSOLICITED RESULTS Final Result [facility] [address] [place] [address] documented in this encounter Visit Diagnoses Diagnosis [...] needed, Starting on Mon11/06/24 at 0031, Until [facility] 11/14/24 at 1804, Routine, line care [...] needed, Starting on Mon11/06/24 at 0753, Until [facility] 11/14/24 at 1804, Routine, On Unit - Preprocedure, line care sodium chloride 0.9 % flush 10 mL 10 mL, Intravenous, Every 12 hours, First dose on [facility] 11/09/24 at 1515, Until Discontinued, Routine [...] 0918 (Canceled Entry - Provider: Bianca Knight, ElizabethD - Comment: due at 0900)0930 (New Bag [...] Provider: Devora Bo)1317 (Given - Provider: Devora F Bo)1753 (Given - Provider: Devora Bo)2032 (Given [...] Discontinued, Routine 0940 (Given - Provider: Devora Bo)180 (Given - Provider: Devora Bo)2122 (Given - [...] Jonathan Vale RN)1442 (Given - Provider: Yazmin Bhatt RN) Sodium Hypochlorite (Dakin's (HALF-Strength)) external solution 1 [...] 0903 (Not Given - Provider: Yazmin Bhatt CHRISTIAN - Reason: Hold for condition: must [...] documented as of this encounter Care Teams Anesthesia Resident Relationship Specialty Start Date End Date Asad Victor MD [address] [phone] PCP - General 10/07/22 documented as of this encounter
--- OUTSIDE RECORDS SUMMARY | 2024-11-06 10:47 | XMS_ITS | Encounter Summary ---
Author Organization Healthcare Address [address] [place] [address] Care Team Providers Care Dust Collector Operator Name Role Phone Asad Victor MD Primary Care Provider + [phone] Reason for Visit * Auth/Cert (Routine) Specialty Diagnoses / Procedures Referred By Contac t Referred To Contact Diagnoses Wound infection Post-op Vasc Sx wounds - sx on 10/17 at Nathaly Nowak MD [address] [facility] [address] [place] [address] Phone: tel: fax: [facility] Emergency Department [address] [place] [address] Phone: tel: Referral ID Status Reason Start Date Expiration Date Visits Re quested Visits Authorized [id number] 1 1 Encounter Details Date Type Department Care Team (Late st Contact Info) Description 11/06/2024 10:47 AM EDT Anesthesia Event [facility] OPERATING ROOM [address] [place] [address] Bill Sue MD [address] [place] [address] Sabrina Mckeon PA [address] [facility] [address] [place] [address] Anesthesia Record Procedure Summary Procedure [...] living in a usp (including now)? No 11/07/2024 CAGE ASSESSMENT Answer [...] drink first t dino in the morning (EYE-CHILDREN'S ZOO CARETAKER) to steady your nerves or to get [...] and Staff Patient location during procedure: OR CEMETERY VAULT INSTALLER: Asad Lechuga CRNA, DNP Performed: CEMETERY VAULT INSTALLER Patient Condition Indications for airway management: anesthesia [...] placement (Left) Location: [facility] OR 16 / [place] OR Surgeons: Nathaly Nowak MD [facility] Mono Ana Bobby is a 64 y.o. [...] Abnormal Ventricular Rate 85 Atrial Rate 85 PA Interval 146 QRSD Interval 128 QT Interval 390 QTC Interval 464 P [place] 52 R [place] 263 T Wave [place] 57 Diagnosis Atrial-sensed ventricular-paced rhythm Diagnosis Biventricular [...] is no recent study available for direct kolg-cg-fylb comparison. [facility]: Pre-operative CIED Report Assessment and Sara- Procedural Reommendations: Name: Mono Bobby Date: 10/17/2024 : 1960 Age: 64 y.o. Patient has a Fisheries Diver: Berger CHEMICAL PRODUCTION MACHINE OPERATOR-PM Remaining battery longevity adequate. Lead [...] RVR s/p CABG), CAD (CAD s/p multiple VA's and 3V CABG02/2019, 2 stents prior to CABG), carotid artery disease (carotid artery disease s/p R CEA 2016), dysrhythmias (3rd degree AV block CHEMICAL PRODUCTION MACHINE OPERATOR-P placed 08/2023 for Wenkeback with 11 sec pause), hyperlipidemia, pacemaker and PVD. Does not have angina, CHF, murmur, orthopnea, syncope or valvular heart disease. hypertension: Cardio additional comments: Follows with OSH Card last seen 09/25/24 ([place]) . Respiratory: home oxygen (2L). no asthma: [...] ENDARTERECTOMY N/A 2017 Endarterectomy Carotid Artery from [employer] CORONARY ANGIOPLASTY Left Coronary Angiography With Concomitant Left Heart Catheterization from [employer] CORONARY ARTERY BYPASS GRAFT N/A 2018 3V ELBOW SURGERY Right ENDARTERECTOMY Left 10/17/2024 common/SFA/Profunda thromboendarterectomy, EIA/SPECIAL EFFECTS ARTIST stent HERNIA REPAIR KNEE ARTHROSCOPY Left VASCULAR SURGERY Left 09/21/2024 SPECIAL EFFECTS ARTIST pseudoaneurym injection [5] Social History Tobacco Use [...] Info) Description 11/26/2024 2:00 PM EDT Appointment [facility] Vascular Lab [address] [place] [address] 11/26/2024 2:30 PM EDT Appointment [facility] Lab [address] [place] [address] 11/26/2024 3:20 PM EDT Office Visit [facility] Clinic [address] [place] [address] Elisabet Schuster PA [address] [facility] [address] [place] [address] 11/29/2024 2:30 PM EDT Office Visit [address] [place] [address] Oscar Appiah MD [address] [facility] [address] [place] [address] documented as of this encounter Goals Goal Patient Goal Type Associated Problems Recent Progress Patient-Stated? Author Autogenera louise Goal Care Plan Autogenerated Problem No Ekta Arnett documented as of this encounter Procedures Procedure Name Priority Date/Time Associated Diagnosis Comments PB ANESTHESIA PLACEHOLDER Routine 11/06/2024 10:58 AM EDT PA AN ELECTIVE ENDOTRACHEAL AIRWAY Routine 11/06/2024 10:58 AM EDT documented in this encounter Results * PA AN ELECTIVE ENDOTRACHEAL AIRWAY, PB ANESTHESIA PLACEHOLDER (11/06/2024 10:58 AM EDT) Narrative Asad Lechuga CRNA, DNP - 11/06/2024 10:58 AM EDT Asad Lechuga CRNA, DNP 11/06/2024 11:05 AM Airway Date/Time: 11/06/2024 10:58 AM Reason: elective Airway not difficult General Information and Staff Patient location during procedure: OR CEMETERY VAULT INSTALLER: Asad Lechuga CRNA, DNP Performed: ISH Patient [...] documented as of this encounter Care Teams Dust Collector Operator Relationship Specialty Start Date End Date Asad Victor MD [address] [place] [address] PCP - General 10/07/22 documented as of this encounter
--- OUTSIDE RECORDS SUMMARY | 2024-11-17 08:23 | XMS_ITS | Encounter Summary ---
Author Organization [facility] Address [address] [place] [address] Care Team Providers Care Escort Vehicle Driver Name Role Phone Asad [place] MD Primary Care Provider + [phone] Encounter Details Date Type Department Care Team [...] drink first t dino in the morning (EYE-MASTER OF CEREMONIES) to steady your nerves or to get [...] Info) Description 11/26/2024 2:00 PM EDT Appointment [facility] [address] [facility] 5th Floor Wing D, [address] [place] [address] 11/26/2024 2:30 PM EDT Appointment [facility] [address] 5th Floor [address] [place] [address] 11/26/2024 3:20 PM EDT Office Visit [facility] [address] [facility] 5th Floor Wing [address], [address] [place] [address] Elisabet Schuster PA [address] [place] [address] 11/29/2024 2:30 PM EDT Office Visit [facility] [address] [place] [address] Oscar Appiah MD [address] [facility] [address] [place] [address] documented as of this encounter Visit Diagnoses Not on filedocumented in this encounter Additional Health Concerns Assessment Noted Time A Body Mass Index follow-up plan has been documented for the patient 09/22/2024 2:53 PM EDT documented as of this encounter Care Teams Escort Vehicle Driver Relationship Specialty Start Date End Date Asad [place] MD [address] [phone] PCP - General 10/07/22 documented as of this encounter
--- OUTSIDE RECORDS SUMMARY | 2024-11-17 08:23 | XMS_ITS | Encounter Summary ---
Author Organization Healthcare Address [address] [place] [address] Care Team Providers Care Relay Engineer Name Role Phone Asad [place] MD Primary Care Provider + [phone] Encounter Details Date Type Department Care Team (Late st Contact Info) Description 09/21/2024 Orders Only External Location [address] [place] [address] Provider, External Social History Tobacco Use Types [...] drink first t dino in the morning (EYE-WALL TO WALL CARPET INSTALLER) to steady your nerves or to [...] Info) Description 11/26/2024 2:00 PM EDT Appointment [facility] [address] [facility] 5th Floor Wing [address], [address] [place] [address] 11/26/2024 2:30 PM EDT Appointment [facility] [address] [facility] 5th Floor Wing [address], [address] [place] [address] 11/26/2024 3:20 PM EDT Office Visit [facility] [address] [facility] 5th Floor [address] [place] [address] Elisabet Schuster PA [address] [place] [address] 11/29/2024 2:30 PM EDT Office Visit [address] [address] Oscar Appiah MD [address] [place] [address] [address] [place] [address] documented as of this encounter [...] documented as of this encounter Care Teams Relay Engineer Relationship Specialty Start Date End Date Asad [place] MD [address] [place] [address] PCP - General 10/07/22 documented as of this encounter
--- OUTSIDE RECORDS SUMMARY | 2024-11-17 08:23 | XMS_ITS | Encounter Summary ---
Author Organization Healthcare Address [address] [place] [address] Care Team Providers Care Mold Finisher Name Role Phone Asad [place] MD Primary Care Provider + [phone] Encounter Details Date Type Department Care Team (Late st Contact Info) Description 09/20/2024 Orders Only External Location [address] [place] [address] Timothy Marques PA [address] [place] [id number] Social History Tobacco Use Types Packs/Day Years [...] drink first t dino in the morning (EYE-CARDIOLOGY NURSE PRACTITIONER) to steady your nerves or to get [...] Info) Description 11/26/2024 2:00 PM EDT Appointment [facility] [address] [facility] 5th Floor Wing [address], [address] [place] [address] 11/26/2024 2:30 PM EDT Appointment [facility] [address] [facility] 5th Floor Wing [address] [place] [phone] 11/26/2024 3:20 PM EDT Office Visit [facility] [address] [facility] 5th Floor Wing [address], [address] [place] [address] Elisabet Schuster, GLENDA [address] [facility] [address] [place] [address] 11/29/2024 2:30 PM EDT Office Visit [facility] [address] [place] [address] Oscar Appiah MD [address] [facility] [address] [place] [address] documented as of this encounter Procedures Procedure [...] as of this encounter Care Teams Mold Finisher Relationship Specialty Start Date End Date Asad [place] MD [address] [place] [address] PCP - General 10/07/22 documented as of this encounter
--- OUTSIDE RECORDS SUMMARY | 2024-11-17 08:24 | XMS_ITS | Encounter Summary ---
Author Organization Healthcare Address [address] [place] [address] Care Team Providers Care Services Tech Name Role Phone Asad [place] MD Primary Care Provider + [phone] Encounter Details Date Type Department Care Team [...] drink first t dino in the morning (EYE-VACATION GUIDE) to steady your nerves or to get [...] [facility] [address] [facility] 5th Floor Wing [address], [address] [place] [address] 11/26/2024 2:30 PM EDT Appointment [facility] [address] [facility] 5th Floor [address] [place] [address] 11/26/2024 3:20 PM EDT Office Visit [facility] [address] 5th Floor [address] [place] [address] Eilsabet Schuster PA [address] [place] [address] 11/29/2024 2:30 PM EDT Office Visit [place] [address] [place] [address] [place] [address] [place] [address] [address] [place] [address] documented as of this encounter Visit Diagnoses Not on filedocumented in this encounter Additional Health Concerns Assessment Noted Time A Body Mass Index follow-up plan has been documented for the patient 09/22/2024 2:53 PM EDT documented as of this encounter Care Teams Services Tech Relationship Specialty Start Date End Date Asad [place] MD [address] [place] [address] PCP - General 10/07/22 documented as of this encounter
--- OUTSIDE RECORDS SUMMARY | 2024-11-17 08:24 | XMS_ITS | Encounter Summary ---
Author Organization Healthcare Address [address] [place] [address] Care Team Providers Care Brazing Machine Setter Name Role Phone Asad [place] MD Primary Care Provider + [phone] Encounter Details Date Type Department Care Team (Late st Contact Info) Description 09/20/2024 Orders Only External Location [address] [place] [address] Timothy Marques PA [address] [place] [phone] Social History Tobacco Use Types Packs/Day Years [...] drink first t dino in the morning (EYE-LICENSED THERAPIST) to steady your nerves or to [...] [facility] [address] [place] [address] 11/26/2024 2:30 PM EDT Appointment [facility] [address] [facility] 5th Floor Wing D, [address] [place] [address] 11/26/2024 3:20 PM EDT Office Visit [facility] [address] [facility] 5th Floor Wing [address], [address] [place] [address] Elisabet Schuster, GLENDA [address] [facility] [address] [place] [address] 11/29/2024 2:30 PM EDT Office Visit [facility] [address] [place] [address] Oscar Appiah MD [address] [facility] [address] [place] [address] documented as of this encounter Procedures Procedure [...] documented as of this encounter Care Teams Brazing Machine Setter Relationship Specialty Start Date End Date Asad [place] MD [address] [place] [address] PCP - General 10/07/22 documented as of this encounter
--- OUTSIDE RECORDS SUMMARY | 2024-11-17 08:26 | XMS_ITS | Encounter Summary ---
Author Organization [facility] Address [address] [place] [address] Care Team Providers Care Disintegrator Operator Name Role Phone Asad Victor MD Primary Care Provider + [phone] Encounter Details Date Type Department Care Team [...] first t dino in the morning (EYE-SUPERVISOR HOME RESTORATION SERVICE) to steady your nerves or to get [...] Description 11/26/2024 2:00 PM EDT Appointment [facility] [address] [place] [address] 11/26/2024 2:30 PM EDT Appointment [facility] [address] [place] [address] 11/26/2024 3:20 PM EDT Office Visit [facility] [address] [place] [address] Elisabet Schuster, PA [address] [place] [address] 11/29/2024 2:30 PM EDT Office Visit [facility] [address] [facility] [place] [address] Oscar Appiah MD [address] [place] [address] documented as of this encounter [...] documented as of this encounter Care Teams Disintegrator Operator Relationship Specialty Start Date End Date Asad Victor MD [address] [place] [address] PCP - General 10/07/22 documented as of this encounter
--- OUTSIDE RECORDS SUMMARY | 2024-11-17 08:27 | XMS_ITS | Encounter Summary ---
Author Organization [facility] Address [address] [id number] Care Team Providers Care Substation Technician Name Role Phone Asad Victor MD Primary Care Provider + [phone] Reason for Visit * Reason Onset Date Comments [facility] Clinical Concern/Question 11/15/2024 Encounter Details Date Type Department Care Team (Late st Contact Info) Description 11/15/2024 [facility]phone [facility] [address] [facility] 5th [address] [place] [address] Nathaly Nowak MD [address] [facility] [address] [place] [address] [facility] Clinical Concern/Question Social History [...] drink first t dino in the morning (EYE-COPY ROOM TECHNICIAN) to steady your nerves or to [...] with info. Thank you Best contact number: [phone] (mobile) Optimal time of day to reach caller: ANYTIME Additional comments/information from caller: None Note: Please do not reply to this message. Follow-up communication and further actions as a result of this message need to be communicated with the patient directly, if the patient is not active onMyChart. If the patient is active on MyChart, they will receive notification of the communication/outcome via [employer]. documented in this encounter Plan of Treatment Upcoming Encounters Date Type Department Care Team (Late st Contact Info) Description 11/26/2024 2:00 PM EDT Appointment [facility] [address] [facility] 5th Floor [address] [place] [address] 11/26/2024 2:30 PM EDT Appointment [facility] [address] [facility] 5th [address] [place] [address] 11/26/2024 3:20 PM EDT Office Visit [facility] [address] [place] [address] Elisabet Schuster PA [address] [place] [address] 11/29/2024 2:30 PM EDT Office Visit [facility] [address] [place] [address] Oscar Appiah MD [address] [facility] [address] [place] [address] documented as of this encounter Goals Goal [...] documented as of this encounter Care Teams Substation Technician Relationship Specialty Start Date End Date Asad Victor MD [address] [place] [address] PCP - General 10/07/22 documented as of this encounter
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
--- OUTSIDE RECORDS SUMMARY | 2024-11-17 08:28 | XMS_ITS | Encounter Summary ---
Author Organization [facility] Address [address] [place] [address] Care Team Providers Care Screw Driver Operator Name Role Phone Asad Victor MD Primary Care Provider + [phone] Encounter Details Date Type Department Care Team [...] drink first t dino in the morning (EYE-ART GLASS DESIGNER) to steady your nerves or to [...] Appointment [facility] [address] Floor [address] [place] [address] 11/26/2024 2:30 PM EDT Appointment [facility] [address] [place] [address] 11/26/2024 3:20 PM EDT Office Visit [facility] [address] [place] [address] Elisabet Schuster, PA [address] [place] [address] 11/29/2024 2:30 PM EDT Office Visit [facility] [address] [facility] [place] [address] Oscar Appiah MD [address] [facility] [address] [place] [address] documented as of this encounter [...] documented as of this encounter Care Teams Screw Driver Operator Relationship Specialty Start Date End Date Asad Victor MD [address] [place] [address] PCP - General 10/07/22 documented as of this encounter
--- OUTSIDE RECORDS SUMMARY | 2024-11-17 08:30 | XMS_ITS | Encounter Summary ---
Author Organization [facility] Address [address] [place] [address] Care Team Providers Care Retail Brand Ambassador Name Role Phone Asad Victor MD Primary Care Provider + [phone] Encounter Details Date Type Department Care Team [...] drink first t dino in the morning (EYE-PEDIATRIC ACUTE CARE UNIT NURSE) to steady your nerves or to [...] Description 11/26/2024 2:[address] [facility] [address] [place] [address] 11/26/2024 2:[address] [facility] [address] [place] [address] 11/26/2024 3:20 PM EDT Office Visit [facility] [address] 5th Floor [address], [address] [place] [address] Elisabet Schuster, PA [address] [place] [address] 11/29/2024 2:30 PM EDT Office Visit [facility] [address] [place] [address] Oscar Appiah MD [address] [facility] [address] [place] [address] documented as of this encounter [...] documented as of this encounter Care Teams Retail Brand Ambassador Relationship Specialty Start Date End Date Asad Victor MD [address] [place] [address] PCP - General 10/07/22 documented as of this encounter
--- OUTSIDE RECORDS SUMMARY | 2024-11-17 08:30 | XMS_ITS | Clinical Summary ---
Author Organization [employer] ([place], [place], [place], [place]) Address [address] [place] [address] Care Team Providers Care Informatics Application Analyst Name Role Phone Unavailable Primary Care Provider [...] Description 11/18/2024 1:10 PM EDT Office Visit [address] [phone] Jerry Monroe Jr., MD [address] [place] [address] 11/20/2024 2:15 PM EDT Clinical Support [address] [phone] 11/22/2024 4:15 PM EDT Clinical Support [address] [phone] Health Maintenance Due Date Last Done Comments [...] (1 - 1-dose 75+ series) 2034 Insurance [facility] MEDICARE ADVANTAGE AETNA [facility]
--- OUTSIDE RECORDS SUMMARY | 2024-11-17 08:30 | XMS_ITS | Encounter Summary ---
Author Organization Healthcare Address [address] [id number] Care Team Providers Care Physical Testing Supervisor Name Role Phone Asad Victor MD Primary Care Provider + [phone] Encounter Details Date Type Department Care Team (Late st Contact Info) Description 10/22/2024 Telephone Vascular Surgery [address] [place] [address] Alison Beltrán, FLAP MAKER, DNP [address] [facility] [address] [place] [address] Social History Tobacco Use Types Packs/Day Years [...] any time in the past 12 m [facility], were you homeless or living in [...] drink first t dino in the morning (EYE-HUB BORER) to steady your nerves or to get [...] Notes * Telephone Encounter - Alison Beltrán, FLAP MAKER, DNP - 10/22/2024 11:39 AM EDT Returned patient call. 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 Patient [...] [facility] [address] [place] [address] 11/26/2024 2:30 PM EDT Appointment [facility] [address] [place] [address] 11/26/2024 3:20 PM EDT Office Visit [facility] [address] [place] [address] Elisabet Schuster, PA [address] [facility] [address] [place] [address] 11/29/2024 2:30 PM EDT Office Visit [facility] [address] [place] [address] Oscar Appiah MD [address] [facility] [address] [place] [address] documented as of this encounter [...] documented as of this encounter Care Teams Physical Testing Supervisor Relationship Specialty Start Date End Date Asad Victor MD [address] [place] [address] PCP - General 10/07/22 documented as of this encounter
--- OUTSIDE RECORDS SUMMARY | 2024-11-17 08:30 | XMS_ITS | Referral Summary ---
Author Organization [email or web address] ([place], [place], [place], [place]) Address [address] [place] [address] Care Team Providers Care Plant Facilities Technician Name Role Phone Unavailable Primary Care [...] Description 11/18/2024 1:10 PM EDT Office Visit [address] [phone] Jerry Monroe Jr., MD [address] [place] [address] 11/20/2024 2:15 PM EDT Clinical Support [address] [phone] 11/22/2024 4:15 PM EDT Clinical Support [address] [phone] Insurance [facility] MEDICARE ADVANTAGE AETNA [facility] [place]
--- OUTSIDE RECORDS SUMMARY | 2024-11-17 08:30 | XMS_ITS | Encounter Summary ---
Author Organization Healthcare Address [address] [place] [address] Care Team Providers Care Base Engineer Name Role Phone Asad Victor MD Primary Care Provider + [phone] Encounter Details Date Type Department Care Team (Late st Contact Info) Description 10/17/2024 Orders Only External Location [address] [place] [address] Provider, External Social History Tobacco Use Types [...] in the past 12 m [facility], were you homeless or living in [...] drink first t dino in the morning (EYE-SECOND MILLER) to steady your nerves or to get rid of a hangover? 0 10/18/2021 CAGE Questionnaire Score 0 022 Utilities Answer Date Recorded In the past 12 months has th e [employer], gas, oil, or water [employer] threatened to shut off services in your [...] [facility] [address] [facility] 5th Floor Wing D, [address] [place] [address] 11/26/2024 2:30 PM EDT Appointment [facility] [address] [facility] 5th Floor Wing [address], [address] [place] [address] 11/26/2024 3:20 PM EDT Office Visit [facility] [address] [facility] 5th Floor Wing D, [address] [place] [address] Elisabet Schuster PA [address] [place] [address] 11/29/2024 2:30 PM EDT Office Visit [address] [place] [address] [place] [address] [place] [address] 100 [place] [address] documented as of this encounter [...] documented as of this encounter Care Teams Base Engineer Relationship Specialty Start Date End Date Asad Victor MD [address] [place] [address] PCP - General 10/07/22 documented as of this encounter
--- OUTSIDE RECORDS SUMMARY | 2024-11-17 08:31 | XMS_ITS | Encounter Summary ---
Author Organization Healthcare Address [address] [place] [address] Care Team Providers Care Asian Studies Program Chair Name Role Phone Asad Victor MD Primary Care Provider + [phone] Encounter Details Date Type Department Care Team (Late st Contact Info) Description 11/15/2024 Clinical Support [id number] [place] [address] Charly [place], PharmD [address] [place] [address] [address] [place] [address] Social History Tobacco Use Types [...] drink first t dino in the morning (EYE-LIQUID COMPOUNDER) to steady your nerves or to get rid of a hangover? 0 10/18/2021 CAGE Questionnaire Score 0 022 Utilities Answer Date Recorded In the past 12 months has th e [employer], gas, oil, or water company threatened to [...] Info) Description 11/26/2024 2:00 PM EDT Appointment [facility] Lab [address] 5th Floor Wing D, [address] [place] [address] 11/26/2024 2:30 PM EDT Appointment [facility] [address] 5th Floor Wing [address] [place] [address] 11/26/2024 3:20 PM EDT Office Visit [facility] [address] 5th Floor [address] [place] [address] Elisabet Schuster, PA [address] [place] [address] 11/29/2024 2:30 PM EDT Office Visit [facility] [address] [facility] [place] [address] Oscar Appiah MD [address] [facility] [address] [place] [address] documented as of this encounter [...] documented as of this encounter Care Teams Asian Studies Program Chair Relationship Specialty Start Date End Date Asad Victor MD [address] [place] [address] PCP - General 10/07/22 documented as of this encounter
--- OUTSIDE RECORDS SUMMARY | 2024-11-17 08:31 | XMS_ITS | Encounter Summary ---
Author Organization [facility] Address [address] [place] [address] Care Team Providers Care Garnett Machine Operator Name Role Phone Asad Victor MD Primary Care Provider + [phone] Encounter Details Date Type Department Care Team [...] drink first t dino in the morning (EYE-ASSISTANT SALES MANAGER) to steady your nerves or to [...] Info) Description 11/26/2024 2:00 PM EDT Appointment [facility] [address] [facility] 5th Floor Wing [address], [address] [place] [address] 11/26/2024 2:30 PM EDT Appointment [facility] [address] [place] [address] 11/26/2024 3:20 PM EDT Office Visit [facility] [address] [facility] 5th Floor Wing [address] [place] [address] Elisabet Schuster PA [address] [place] [address] 11/29/2024 2:30 PM EDT Office Visit [address] [place] [address] Oscar Appiah MD [address] [place] [address] [address] [place] [address] documented as of this encounter [...] documented as of this encounter Care Teams Garnett Machine Operator Relationship Specialty Start Date End Date Asad Victor MD [address] [facility] [address] [place] [address] PCP - General 10/07/22 documented as of this encounter
--- OUTSIDE RECORDS SUMMARY | 2024-11-17 08:31 | XMS_ITS | Encounter Summary ---
Author Organization Healthcare Address [address] [place] [address] Care Team Providers Care Powerhouse Mechanic Helper Name Role Phone Asad Victor MD Primary Care Provider + [phone] Encounter Details Date Type Department Care Team (Late st Contact Info) Description 11/05/2024 Orders Only External Location [address] [place] [address] Provider, External Social History Tobacco Use Types [...] time in the past 12 m [facility], were you homeless or living in [...] drink first t dino in the morning (EYE-COMMUNITY SERVICES COORDINATOR) to steady your nerves or to get rid of a hangover? 0 10/18/2021 CAGE Questionnaire Score 0 022 Utilities Answer Date Recorded In the past 12 months has th e [employer], gas, oil, or water company threatened to [...] [facility] [address] [facility] 5th Floor Wing [address], [address] [place] [address] 11/26/2024 2:30 PM EDT Appointment [facility] [address] [facility] 5th Floor Wing [address] [place] [address] 11/26/2024 3:20 PM EDT Office Visit [facility] [address] 5[address] [place] [address] Elisabet Schuster PA [address] [place] [address] 11/29/2024 2:30 PM EDT Office Visit [address] [place] [address] Oscar Appiah MD [address] [place] [address] [address] [place] [address] documented as of this encounter [...] documented as of this encounter Care Teams Powerhouse Mechanic Helper Relationship Specialty Start Date End Date Asad Victor MD [address] [place] [address] PCP - General 10/07/22 documented as of this encounter
--- OUTSIDE RECORDS SUMMARY | 2024-11-17 08:33 | XMS_ITS | Encounter Summary ---
Author Organization Healthcare Address [address] [place] [address] Care Team Providers Care Hand Bootmaker Name Role Phone Asad Victor MD Primary Care Provider + [phone] Encounter Details Date Type Department Care Team [...] drink first t dino in the morning (EYE-GREENHOUSE STAFF) to steady your nerves or to get [...] [facility] Lab [address] 5th Floor [address] [place] [address] 11/26/2024 2:30 PM EDT Appointment [facility] [address] 5th Floor [address] [place] [address] 11/26/2024 3:20 PM EDT Office Visit [facility] [address] 5th Floor [address] [place] [address] Elisabet Schuster PA [address] [place] [address] 11/29/2024 2:30 PM EDT Office Visit [facility] [address] [place] [address] Oscar Appiah MD [address] [facility] [address] [place] [address] documented as of this encounter Visit Diagnoses Not on filedocumented in this encounter Additional Health Concerns Assessment Noted Time A Body Mass Index follow-up plan has been documented for the patient 09/22/2024 2:53 PM EDT documented as of this encounter Care Teams Hand Bootmaker Relationship Specialty Start Date End Date Asad Victor MD [address] [facility] [address] [place] [address] PCP - General 10/07/22 documented as of this encounter
[2024-11-17] MEDS: SODIUM CHLORIDE 0.9% 10ML FLUSH SYRINGE 10 ML IV (08:54)
[2024-11-17] MEDS: ERTAPENEM SODIUM 1 GM in 0.9 % SODIUM CHLORIDE 50 ML IV (08:55)
[2024-11-17] MEDS: SODIUM CHLORIDE 0.9% IV (09:25)
[2024-11-17] MEDS: MICAFUNGIN SODIUM IV (09:25)
== END 2024-11-17 10:35 | disposition home or self-care (01) ==
LOC: INF 08:20
PROVIDERS: PCP Family Medicine; Visit Provider Student in an Organized Health Care Education/Training Program
DX: T14.8XXA Other injury of unspecified body region, initial encounter (principal); L08.9 Local infection of the skin and subcutaneous tissue, unspecified; X58.XXXA Exposure to other specified factors, initial encounter; Y93.9 Activity, unspecified; Y92.9 Unspecified place or not applicable
CPT/HCPCS: 96365; 96366; 96367; J1335; J2248

== ENCOUNTER 2024-11-18 11:04 | Outpatient (CLI) | payer MEDICARE, OTHER, SELFPAY ==
--- OUTSIDE RECORDS SUMMARY | 2024-09-20 21:25 | XMS_ITS | Encounter Summary ---
Author Organization [facility] Address [address] [id number] Care Team Providers Care Supervisor Electronics Testing Name Role Phone Asad Victor MD Primary Care Provider + [phone] Reason for Visit * Auth/Cert (Routine) Specialty Diagnoses / Procedures Referred By Contac t Referred To Contact Diagnoses Pseudoaneurysm of left femoral artery (CMS/HCC) PSUEDO ANEURYSM Nathaly Nowak MD [address] [address] Phone: tel: fax: [facility] Emergency Department [address] [place] [address] Phone: tel: Referral ID Status Reason Start Date Expiration Date Visits Re quested Visits Authorized [id number] 1 1 Encounter Details Date Type Department Care Team (Latest Contact Info) Description 09/20/2024 9:25 PM EDT - 09/22/2024 4:00 PM EDT Hospital Encounter [facility] Inpatient [address] [place] [id number] Robbie Braxton MD [address] [place] [address] Nathaly Nowak MD [address] [id number] [place] [address] Pseudoaneurysm of left femoral artery [...] drink first t dino in the morning (EYE-RECIPROCATING DRILL OPERATOR) to steady your nerves or to [...] to schedule you next surgery. Questions: Call [phone] during business hours on week or call [facility]'s after hours at [phone] to speak with a resident sponge hooker for Vascular Surgery after 5pm or on [...] Carmona with any questions or concerns at [phone]. It is important that you get your [...] T2DM, HLD, HTN, RLS who presented to [facility] with a large left common [...] discharge instructions. No distress noted. 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 Awaiting his ride to arrive. Patient states his discharge ride is about 40 minutes away. * [facility] - Melecio Vega RN - 09/22/2024 2:52 PM EDT Images from the original note were not included. [id number] Peripheral Artery Disease (PAD) Peripheral artery disease [...] cause. Last Reviewed Date: 2024 00:00:00 ?? [id number] [employer]. All rights reserved. This information is not intended as a substitute for professional medical care. Always follow your healthcare professional's instructions. * [facility] - Melecio Vega RN - 09/22/2024 2:52 PM EDT Images from the original note were not included. [id number] Taking Aspirin for Atherosclerosis Aspirin is a [...] This includes: ? All prescription medicines ? Bsle-odc-ahojzfr medicines ? Herbs, vitamins, and other supplements [...] pain Last Reviewed Date: 2022 00:00:00 ?? [id number] The [employer]. All rights reserved. This information is not [...] name and Address: Asad Victor MD (Inactive) [address] [place] [address] / [facility] [address] Referring provider name and address: Timothy Marques PA [address] [place] [address] Chief Concern, Brief History of Present Illness, and Hospital Course Mono Bobby is a 64 y.o. male with PMHx notable for COPD, CAD s/p PCI with pacemaker on Xarelto, T2DM, HLD, HTN, RLS who presented to [facility] with a large left common [...] Your Medications These medications were sent to [facility] - [place], [place] - [address] [facility] [address] oxyCODONE 5 MG immediate release tablet Discharge [...] soap and water daily. Pat to dry. [place]hton/ sutures will be removed at postoperative follow [...] to schedule you next surgery. Questions: Call [phone] during business hours on weekdays or call [facility]'s after hours at [phone] to speak with a resident sponge hooker for Vascular Surgery after 5pm or on [...] Carmona with any questions or concerns at [phone]. It is important that you get your [...] and Manage Fall Risk Flowsheets (Taken 09/22/2024 2299) Safety Promotion/Fall Prevention: activity supervised assistive device/personal [...] Regular diet - Repeat duplex 09/22 - [facility] - consider IO cath if sensation of [...] or Concerns: pain Taken 09/21/2024 1800 by Rja Agee RN Patient/Family-Specific Goals (Include Timeframe): pt [...] from the original note were not included. [facility] Department of Surgery Division of Vascular Surgery Surgery Progress Note 09/21/24 Mono Bobby Subjective Subjective: HPI Mono Bobby is a 64 y.o. 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 09/21: Thrombin injection of left common femoral artery pseudoaneurysm Interval: NAEON. He reports feeling well. Still having some groin pain. Duplex confirmed PSA. Discussed treatment with thrombin injection and pt would like to proceed. 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 Duplex today confirmed it was a pseudoaneurysm. Thrombin injection performed today. He tolerated the procedure well. POC later tonight. Plan: [ ] Post op check at 1999 - Continue strict bedrest - Regular diet - Duplex 09/21: showed PICKER TENDER pseudoaneurysm - Repeat duplex 09/22 - [facility] Edited by: Anthony Keenan MD at 09/21/2024 6142 Dispo: Continue Current Level of Care Philipp Keenan MD General Surgery, PGY 1 Pager: [phone] Cosigned by Terrell Gautam MD at 09/23/2024 [...] femoral artery pseudoaneurysm Attending Surgeon(s): Terrell Gautam Educational Program Assistant(s): Jerry Holcomb Anesthesia: local ASA: 3 Blood [...] pseudoaneurysm sac is far away from the [place] artery as possible. Very slowly 0.2 cc [...] from the original note were not included. [facility] Department of Surgery Division of Vascular [...] HLD, HTN, RLS who presented to the [facility] on 09/20/2024 as a transfer from [...] At that time, the patient presented to [facility] and underwent an updated CTA which demonstrated concern for a left common femoral artery pseudo aneurysm. He was transferred to the [facility] for a higher level of care. [...] MINUTES. IF NO RELIEF AFTER 3 DOSES LIWE707/GO TO ER 11/02/21 Darby Camara MD pravastatin [...] T2DM, HLD, HTN, RLS who presented to [facility] with a large left common [...] ongoing surgical planning. Plan: - Admit to [facility] - Strict bedrest - NPO, mIVF - Will discuss surgical options in the morning Dispo: Admit to [facility] CODE STATUS: full code This Consult, Assessment, and Plan has been discussed with Dr. Nowak, Attending Physician Shaila Lord [1] Past Medical History: Diagnosis Date Arthritis Old myocardial infarction History of myocardial infarction [2] No Known Allergies [3] Past Surgical History: Procedure Laterality Date ANKLE SURGERY Right CAROTID ENDARTERECTOMY N/A Endarterectomy Carotid Artery from [facility] CORONARY ANGIOPLASTY Left Coronary Angiography With Concomitant Left Heart Catheterization from [facility] CORONARY ARTERY BYPASS GRAFT N/A CABG from [facility] ELBOW SURGERY Right OTHER SURGICAL HISTORY N/A Reported Prior Surgical / Procedural History from [facility] [4] Family History Problem Relation Name Age [...] MINUTES. IF NO RELIEF AFTER 3 DOSES KSUP857/GO TO ER pravastatin (Pravachol) 80 MG tablet [...] accompanied by pain [facility]. In the emergency department they obtained a CTA with runoff of the lower extremities which found a left-sided femoral pseudoaneurysm. The patient was transferred here for higher level of care. He has not had any lower extremity pallor, pain, weakness, or sensory changes. History provided by: Patient and medical records communication assistant used: No Patient History Past Medical History[1] [...] CAROTID ENDARTERECTOMY N/A Endarterectomy Carotid Artery from [facility] CORONARY ANGIOPLASTY Left Coronary Angiography With Concomitant Left Heart Catheterization from [facility] CORONARY ARTERY BYPASS GRAFT N/A CABG from [facility] ELBOW SURGERY Right OTHER SURGICAL HISTORY N/A Reported Prior Surgical / Procedural History from [facility] [3] Family History Problem Relation Name Age [...] - 09/20/2024 9:22 PM EDT Arrived from [facility] pt transferred from [facility] c/o left groin pain pt had stent x2 on 09/12 went to cardiology and was told to go to hospital. documented in this encounter Plan of Treatment Upcoming Encounters Date Type Department Care Team (Late st Contact Info) Description 11/26/2024 2:00 PM EDT Appointment [facility] [address] [place] [address] 11/26/2024 2:30 PM EDT Appointment [facility] [address] [place] [address] 11/26/2024 3:20 PM EDT Office Visit [facility] [address] [place] [address] Elisabet Schuster PA [address] [place] [address] 11/29/2024 2:30 PM EDT Office Visit [facility] [address] [place] [address] Oscar Appiah MD [address] [facility] [address] [place] [address] documented as of this encounter Procedures Procedure [...] Comment 09/22/2024 11:11 AM EDT HEALTHCARE LAB Hotel Services Sales Representative ID Zena Rios 025 11:11 AM EDT HEALTHCARE LAB Device ID [id number] 09/22/2024 11:11 AM EDT HEALTHCARE LAB Specimen Type POC Capillary 09/22/2024 11:11 AM EDT HEALTHCARE LAB Blood Capillary blood specimen / Unknown 09/22/2024 11:06 AM EDT 09/22/2024 11:11 AM EDT us Nathaly Nowak MD LAB POINT OF CARE TE ST DOCKED DEVICE UNSOLICITED RESULTS Final Result Performing Organization Address City/State/[facility] Co de Phone Number HEALTHCARE LAB [address] [place] [address] * VAS US Arterial Duplex Lower Extremity [...] 7:15 PM EDT CLINICAL INDICATION: s/p L PICKER TENDER pseudoaneurysm injection TECHNIQUE: Non-invasive, real time duplex [...] sac. The following flow velocities were obtained: PICKER TENDER: 114 cm/s SFA: 0 cm/s PFA: 278 cm/s Popliteal A: 41 cm/s PIPED BUTTONHOLE MACHINE OPERATOR distal: 43 cm/s DPA: 67 cm/s Pseudoaneurysm sac: 0 cm/s Procedure Note Neil Isaac MD - 09/22/2024 CLINICAL INDICATION: s/p L PICKER TENDER pseudoaneurysm injection TECHNIQUE: Non-invasive, real time duplex exam of the lower extremity arterialcirculation with Doppler ultrasonic waveform and spectral analysis wasperformed. COMPARISON: Post pseudoaneurysm thrombin injection arterial duplex [id number]/28/2025; Following thrombin injection of the left common femoral arterypseudoaneurysm, no active flow is noted. Study suggests successfulthrombin injection therapy FINDINGS: Left: Following thrombin injection, an echogenic thrombus is noted within thepseudoaneurysm sac. Color and pulsed Doppler analysis demonstrates anabsence of flow within the pseudoaneurysm sac. The following flowvelocities were obtained: PICKER TENDER: 114 cm/s SFA: 0 cm/s PFA: 278 cm/s Popliteal A: 41 cm/s PIPED BUTTONHOLE MACHINE OPERATOR distal: 43 cm/s DPA: 67 cm/s Pseudoaneurysm [...] Comment 09/22/2024 7:22 AM EDT HEALTHCARE LAB Hotel Services Sales Representative ID Zena Rios 025 7:22 AM EDT HEALTHCARE LAB Device ID [id number] 09/22/2024 7:22 AM EDT HEALTHCARE LAB Specimen Type POC Capillary 09/22/2024 7:22 AM EDT [facility] Blood Capillary blood specimen / Unknown 09/22/2024 7:19 AM EDT 09/22/2024 7:22 AM EDT Nathaly Nowak MD LAB POINT OF CARE TE ST DOCKED DEVICE UNSOLICITED RESULTS Final Result HEALTHCARE LAB [address] [place] [address] * Magnesium (09/22/2024 3:49 AM EDT) Magnesium, Plasma 2.1 1.9 - 2.4 mg/dL 09/22/2024 4:49 AM EDT [facility] Blood Venous blood specimen / Unknown Venipuncture / Unknown 09/22/2024 3:49 AM EDT 09/22/2024 4:12 AM EDT Nathaly Nowak MD LAB BLOOD ORDERABLES Final Resu lt [facility] [address] [place] [address] * Phosphorus (09/22/2024 3:49 AM EDT) Phosphorus, Plasma 2.9 2.5 - 4.5 mg/dL 09/22/2024 4:49 AM EDT [facility] Blood Venous blood specimen / Unknown Venipuncture / Unknown 09/22/2024 3:49 AM EDT 09/22/2024 4:12 AM EDT us Nathaly Nowak MD LAB BLOOD ORDERABLES Final Resu lt Performing Organization Address [facility]/ZIP Co de Phone Number [facility] [address] [place] [address] * (ABNORMAL) Basic metabolic panel (09/22/2024 3:49 AM EDT) Pathologist [facility] Glucose, Plasma 132(H) 74 - 99 mg/dL 09/22/2024 4:49 AM EDT [facility] BUN, Plasma 15 8 - 23 mg/dL 09/22/2024 4:49 AM EDT [facility] Creatinine, Plasma 0.78 0.70 - 1.20 mg/dL 09/22/2024 4:49 AM EDT [facility] BUN/Creatinine Ratio 19 09/22/2024 4:49 AM EDT [facility] Sodium, Plasma 137 136 - 145 mmol/L 09/22/2024 4:49 AM EDT [facility] Potassium, Plasma 4.5 3.6 - 4.9 mmol/L 09/22/2024 4:49 AM EDT [facility] Chloride, Plasma 104 97 - 107 mmol/L 09/22/2024 4:49 AM EDT [facility] CO2, Plasma 24 22 - 29 mmol/L 09/22/2024 4:49 AM EDT [facility] Anion Gap 9 6 - 16 mmol/L 09/22/2024 4:49 AM EDT [facility] Total Calcium, Plasma 9.2 8.9 - 10.2 mg/dL 09/22/2024 4:49 AM EDT [facility] eGFRcr 99.0 mL/min/1.7 3m*2 09/22/2024 4:49 AM EDT [facility] Comment:Reported eGFRcr in m L/min/1.73m2 is based the CKD-EPI 2020 equation that does not use a race coefficient. Blood Venous blood specimen / Unknown Venipuncture / Unknown 09/22/2024 3:49 AM EDT 09/22/2024 4:12 AM EDT us Nathaly Nowak MD LAB BLOOD ORDERABLES Final Resu lt [facility] [address] [place] [address] * (ABNORMAL) CBC (09/22/2024 3:49 AM EDT) WBC Count 11.68(H) 3.70 - 10.30 10*3/uL LAB HEMATOLOGY METHOD 09/22/2024 4:26 AM EDT [facility] RBC Count 2.89(L) 4.60 - 6.10 10*6/uL LAB HEMATOLOGY METHOD 09/22/2024 4:26 AM EDT [facility] HGB 8.9(L) 13.7 - 17.5 g/dL LAB HEMATOLOGY METHOD 09/22/2024 4:26 AM EDT [facility] HCT 26.7(L) 40.0 - 51.0 % LAB HEMATOLOGY METHOD 09/22/2024 4:26 AM EDT [facility] Platelet Count 454(H) 155 - 369 10*3/uL LAB HEMATOLOGY METHOD 09/22/2024 4:26 AM EDT [facility] MCV 92 79 - 98 fL LAB HEMATOLOGY METHOD 09/22/2024 4:26 AM EDT [facility] MCH 30.8 26.0 - 32.0 pg LAB HEMATOLOGY METHOD 09/22/2024 4:26 AM EDT [facility] MCHC 33.3 30.7 - 35.5 g/dL LAB HEMATOLOGY METHOD 09/22/2024 4:26 AM EDT [facility] RDW 13.6 11.5 - 14.5 % LAB HEMATOLOGY METHOD 09/22/2024 4:26 AM EDT [facility] MPV 8.8 8.8 - 12.5 fL LAB HEMATOLOGY METHOD 09/22/2024 4:26 AM EDT [facility] nRBC 0.0 <=0.0 per 100 WBCs LAB HEMATOLOGY METHOD 09/22/2024 4:26 AM EDT [facility] Blood Venous blood specimen / Unknown Venipuncture / Unknown 09/22/2024 3:49 AM EDT 09/22/2024 4:14 AM EDT us Nathaly Nowak MD LAB BLOOD ORDERABLES Final Resu lt Performing Organization Address [facility] Co de Phone Number [facility] [address] [place] [id number] * (ABNORMAL) POCT glucose meter (09/21/2024 8:45 [...] 09/21/2024 8:47 PM EDT [facility] Hotel Services Sales Representative ID Joy Reich 025 8:47 PM EDT HEALTHCARE LAB Device ID [id number] 09/21/2024 8:47 PM EDT HEALTHCARE LAB Specimen Type POC Capillary 09/21/2024 8:47 PM EDT [facility] Blood Capillary blood specimen / Unknown 09/21/2024 8:45 PM EDT 09/21/2024 8:47 PM EDT us Nathaly Nowka MD LAB POINT OF CARE TE ST DOCKED DEVICE UNSOLICITED RESULTS Final Result Performing Organization Address City/[facility]/ZIP Co de Phone Number [facility] [address] [place] [address] * (ABNORMAL) POCT glucose meter (09/21/2024 5:09 [...] Comment 09/21/2024 5:11 PM EDT HEALTHCARE LAB Hotel Services Sales Representative ID Jojo Lange 025 5:11 PM EDT HEALTHCARE LAB Device ID [id number] 09/21/2024 5:11 PM EDT HEALTHCARE LAB Specimen Type POC Capillary 09/21/2024 5:11 PM EDT HEALTHCARE LAB Blood Capillary blood specimen / Unknown 09/21/2024 5:09 PM EDT 09/21/2024 5:11 PM EDT us Nathaly Nowak MD LAB POINT OF CARE TE ST DOCKED DEVICE UNSOLICITED RESULTS Final Result [facility]ARE LAB [address] [place] [address] * VAS US Arterial Duplex Lower Extremity [...] 09/21/2024 7:35 PM EDT CLINICAL INDICATION: s/p PICKER TENDER pseudoaneurysm injection TECHNIQUE: Non-invasive, real time duplex exam of the lower extremity arterial circulation with Doppler ultrasonic waveform and spectral analysis was performed. COMPARISON: None. FINDINGS: Left: Following thrombin injection, an echogenic thrombus is noted within the pseudoaneurysm sac. Color and pulsed Doppler analysis demonstrates an absence of flow within the pseudoaneurysm sac. The following flow velocities were obtained: PICKER TENDER: 55 cm/s SFA: 0 cm/s Popliteal A: 51 cm/s PIPED BUTTONHOLE MACHINE OPERATOR distal: 35 cm/s DPA: 61 cm/s Pseudoaneurysm sac: 0 cm/s Procedure Note Neil Isaac MD - 09/21/2024 CLINICAL INDICATION: s/p PICKER TENDER pseudoaneurysm injection TECHNIQUE: Non-invasive, real time duplex exam of the lower extremity arterialcirculation with Doppler ultrasonic waveform and spectral analysis wasperformed. COMPARISON: None. FINDINGS: Left: Following thrombin injection, an echogenic thrombus is noted within thepseudoaneurysm sac. Color and pulsed Doppler analysis demonstrates anabsence of flow within the pseudoaneurysm sac. The following flowvelocities were obtained: PICKER TENDER: 55 cm/s SFA: 0 cm/s Popliteal A: 51 cm/s PIPED BUTTONHOLE MACHINE OPERATOR distal: 35 cm/s DPA: 61 cm/s Pseudoaneurysm [...] POCT glucose meter (09/21/2024 1:04 PM EDT) [facility] POCT Glucose 177(H) 74 - 99 mg/dL [...] Comment 09/21/2024 1:09 PM EDT HEALTHCARE LAB Hotel Services Sales Representative ID Ruth Solo 025 1:09 PM EDT HEALTHCARE LAB Device ID [id number] 09/21/2024 1:09 PM EDT HEALTHCARE LAB Specimen Type POC Capillary 09/21/2024 1:09 PM EDT [facility] LAB Blood Capillary blood specimen / Unknown 09/21/2024 1:04 PM EDT 09/21/2024 1:09 PM EDT us Nathaly Nowak MD LAB POINT OF CARE TE ST DOCKED DEVICE UNSOLICITED RESULTS Final Result Performing Organization Address City/State/[facility] Co de Phone Number [facility] [address] [place] [address] * (ABNORMAL) POCT glucose meter (09/21/2024 12:24 PM EDT) [facility] POCT Glucose 153(H) 74 - 99 mg/dL [...] 09/21/2024 12:26 PM EDT [facility] Hotel Services Sales Representative ID Ruth Solo 025 12:26 PM EDT [facility] Device ID [id number] 09/21/2024 12:26 PM EDT HEALTHCARE LAB Specimen Type POC Capillary 09/21/2024 12:26 PM EDT HEALTHCARE LAB Blood Capillary blood specimen / Unknown 09/21/2024 12:24 PM EDT 09/21/2024 12:26 PM EDT us Nathaly Nowak MD LAB POINT OF CARE TE ST DOCKED DEVICE UNSOLICITED RESULTS Final Result [facility] [address] [place] [address] * VAS US Arterial Duplex Lower Extremity [...] neck. The following flow velocities were obtained: PICKER TENDER: 93 cm/s SFA: 0 cm/s Popliteal A: 36 cm/s PIPED BUTTONHOLE MACHINE OPERATOR distal: 34 cm/s DPA: 59 cm/s Pseudoaneurysm [...] neck. The following flow velocities were obtained: PICKER TENDER: 93 cm/s SFA: 0 cm/s Popliteal A: 36 cm/s PIPED BUTTONHOLE MACHINE OPERATOR distal: 34 cm/s DPA: 59 cm/s Pseudoaneurysm [...] glucose meter (09/21/2024 7:55 AM EDT) Pathologist [facility] POCT Glucose 130(H) 74 - 99 mg/dL [...] for testing. Comment 09/21/2024 8:01 AM EDT [facility] Hotel Services Sales Representative ID Ruth Solo 025 8:01 AM EDT [facility] Device ID [id number] 09/21/2024 8:01 AM EDT [facility] Specimen Type POC Capillary 09/21/2024 8:01 AM EDT [facility] Blood Capillary blood specimen / Unknown 09/21/2024 7:55 AM EDT 09/21/2024 8:01 AM EDT Nathaly Nowak MD LAB POINT OF CARE TE ST DOCKED DEVICE UNSOLICITED RESULTS Final Result [facility] [address] [place] [address] * (ABNORMAL) POCT glucose meter (09/21/2024 6:06 AM EDT) Pathologist [facility] POCT Glucose 153(H) 74 - 99 mg/dL [...] Comment 09/21/2024 6:09 AM EDT HEALTHCARE LAB Hotel Services Sales Representative ID Yuan Griffin 09/22/19 6:09 AM EDT HEALTHCARE LAB Device ID [id number] 09/21/2024 6:09 AM EDT HEALTHCARE LAB Specimen Type POC Capillary 09/21/2024 6:09 AM EDT [facility]ALTH[facility] Blood Capillary blood specimen / Unknown 09/21/2024 6:06 AM EDT 09/21/2024 6:09 AM EDT Nathaly Nowak MD LAB POINT OF CARE TE ST DOCKED DEVICE UNSOLICITED RESULTS Final Result Performing Organization Address City/[facility] Co de Phone Number HEALTHCARE LAB [address] [place] [address] * (ABNORMAL) POCT glucose meter (09/21/2024 2:27 AM EDT) [facility] POCT Glucose 194(H) 74 - 99 mg/dL [...] Comment 09/21/2024 2:34 AM EDT HEALTHCARE LAB Hotel Services Sales Representative ID Ana Maria Corea 09/21/2024 2:34 AM EDT HEALTHCARE LAB Device ID [id number] 09/21/2024 2:34 AM EDT HEALTHCARE LAB Specimen Type POC Capillary 09/21/2024 2:34 AM EDT [facility]ALTH[facility] LAB Blood Capillary blood specimen / Unknown 09/21/2024 2:27 AM EDT 09/21/2024 2:34 AM EDT Nathaly Nowak MD LAB POINT OF CARE TE ST DOCKED DEVICE UNSOLICITED RESULTS Final Result Performing Organization Address City/[facility]/ZIP Co de Phone Number HEALTHCARE LAB [address] [place] [address] * ECG Adult (09/21/2024 2:00 AM EDT) [facility] EKG DIAGNOSIS CLASS Abnormal MUSE ECG Ventricular Rate 85 BPM MUSE ECG Atrial Rate 85 BPM MUSE ECG RI Interval 146 ms MUSE ECG QRSD Interval 128 ms MUSE ECG QT Interval 390 ms MUSE ECG QTC Interval 464 ms MUSE ECG P [place] 52 degrees MUSE ECG R [place] 263 degrees MUSE ECG T Wave [place] 57 degrees MUSE ECG Diagnosis Atrial-sensed ventricular-pace [...] HIV 1/2 Differentiation (09/20/2024 10:33 PM EDT) [facility] HIV 1 & 2 Antibody/Antigen Screen Non Reactive Non Reactive 09/20/2024 11:39 PM EDT [facility] Comment:Screening for HIV 1 & 2 antibodies, and P24 antigen is NONREACTIVE. No confirmatory testing is required. Blood Venous blood specimen / Unknown Venipuncture / Unknown 09/20/2024 10:33 PM EDT 09/20/2024 10:54 PM EDT us Giorgi Perkins MD LAB BLOOD ORDERABLES Final Result [facility] [address] [place] [address] * Hepatitis C Antibody - ED (09/20/2024 10:33 PM EDT) [facility] Hepatitis C Antibody Negative Negative 09/20/2024 11:39 PM EDT [facility] Blood Venous blood specimen / Unknown Venipuncture / Unknown 09/20/2024 10:33 PM EDT 09/20/2024 10:53 PM EDT us Giorgi Perkins MD LAB BLOOD ORDERABLES Final Result [facility] [address] [place] [address] * APTT (09/20/2024 10:33 PM EDT) aPTT 28 25 - 35 sec LAB COAGULATION METHOD 09/21/2024 12:19 AM EDT [facility] Blood Venous blood specimen / Unknown Venipuncture / Unknown 09/20/2024 10:33 PM EDT 09/20/2024 10:42 PM EDT us Giorgi Perkins MD LAB BLOOD ORDERABLES Final Result Performing Organization Address [facility] Co de Phone Number [facility] [address] [place] [address] * PT-INR (09/20/2024 10:33 PM EDT) Prothrombin Time 14.0 12.0 - 14.3 sec LAB COAGULATION METHOD 09/21/2024 12:19 AM EDT [facility] INR 1.1 0.9 - 1.1 LAB COAGULATION METHOD 09/21/2024 12:19 AM EDT [facility] Blood Venous blood specimen / Unknown Venipuncture / Unknown 09/20/2024 10:33 PM EDT 09/20/2024 10:42 PM EDT Narrative [facility] - 09/21/2024 12:19 AM EDT OPTIMAL INR RANGES FOR PATIENT ON ORAL ANTICOAGULANT THERAPY Prevention of venous thromboembolism INR 2.0 to 3.0 In patients with heart disease: Atrial fibrillation INR 2.0 to 3.0 Valvular heart disease INR 2.0 to 3.0 Tissue heart valves INR 2.0 to 3.0 Mechanical prosthetic valves INR 2.5 to 3.5 Prevention of recurrent ID INR 2.5 to 3.5 us Giorgi Perkins MD LAB BLOOD ORDERABLES Final Result [facility] [address] [place] [address] * (ABNORMAL) CBC w/diff (09/20/2024 10:33 PM EDT) WBC Count 13.38(H) 3.70 - 10.30 10*3/uL LAB HEMATOLOGY METHOD 09/20/2024 11:00 PM EDT [facility] RBC Count 2.91(L) 4.60 - 6.10 10*6/uL LAB HEMATOLOGY METHOD 09/20/2024 11:00 PM EDT [facility] HGB 9.0(L) 13.7 - 17.5 g/dL LAB HEMATOLOGY METHOD 09/20/2024 11:00 PM EDT [facility] HCT 27.2(L) 40.0 - 51.0 % LAB HEMATOLOGY METHOD 09/20/2024 11:00 PM EDT [facility] Platelet Count 407(H) 155 - 369 10*3/uL LAB HEMATOLOGY METHOD 09/20/2024 11:00 PM EDT [facility] MCV 94 79 - 98 fL LAB HEMATOLOGY METHOD 09/20/2024 11:00 PM EDT [facility] MCH 30.9 26.0 - 32.0 pg LAB HEMATOLOGY METHOD 09/20/2024 11:00 PM EDT [facility] MCHC 33.1 30.7 - 35.5 g/dL LAB HEMATOLOGY METHOD 09/20/2024 11:00 PM EDT [facility] RDW 13.6 11.5 - 14.5 % LAB HEMATOLOGY METHOD 09/20/2024 11:00 PM EDT [facility] MPV 9.0 8.8 - 12.5 fL LAB HEMATOLOGY METHOD 09/20/2024 11:00 PM EDT [facility] nRBC 0.0 <=0.0 per 100 WBCs LAB HEMATOLOGY METHOD 09/20/2024 11:00 PM EDT [facility] Differential Type Automated LAB HEMATOLOGY METHOD 09/20/2024 11:00 PM EDT [facility] Neutrophils % 77 % LAB HEMATOLOGY METHOD 09/20/2024 11:00 PM EDT [facility] Lymphocytes % 13 % LAB HEMATOLOGY METHOD 09/20/2024 11:00 PM EDT [facility] Monocytes % 8 % LAB HEMATOLOGY METHOD 09/20/2024 11:00 PM EDT [facility] Eosinophils % 1 % LAB HEMATOLOGY METHOD 09/20/2024 11:00 PM EDT [facility] Basophils % 0 % LAB HEMATOLOGY METHOD 09/20/2024 11:00 PM EDT [facility] Immature Granulocytes % 1 % LAB HEMATOLOGY METHOD 09/20/2024 11:00 PM EDT [facility] Neutrophils Absolute 10.28(H) 1.60 - 6.10 10*3/uL LAB HEMATOLOGY METHOD 09/20/2024 11:00 PM EDT [facility] Lymphocytes Absolute 1.67 1.20 - 3.90 10*3/uL LAB HEMATOLOGY METHOD 09/20/2024 11:00 PM EDT [facility] Monocytes Absolute 1.12(H) 0.30 - 0.90 10*3/uL LAB HEMATOLOGY METHOD 09/20/2024 11:00 PM EDT [facility] Eosinophils Absolute 0.14 0.00 - 0.50 10*3/uL LAB HEMATOLOGY METHOD 09/20/2024 11:00 PM EDT [facility] Basophils Absolute 0.05 0.00 - 0.10 10*3/uL LAB HEMATOLOGY METHOD 09/20/2024 11:00 PM EDT [facility] Immature Granulocytes Absolute 0.12(H) 0.00 - 0.06 10*3/uL LAB HEMATOLOGY METHOD 09/20/2024 11:00 PM EDT [facility] Blood Venous blood specimen / Unknown Venipuncture / Unknown 09/20/2024 10:33 PM EDT 09/20/2024 10:42 PM EDT Narrative [facility] - 09/20/2024 11:00 PM EDT Therapeutic decision making should be based on absolute values, rather than percentages. us Giorgi Perkins MD LAB BLOOD ORDERABLES Final Result [facility] [address] [place] [address] * (ABNORMAL) CMP (09/20/2024 10:33 PM EDT) Glucose, Plasma 170(H) 74 - 99 mg/dL 09/20/2024 11:03 PM EDT [facility] BUN, Plasma 27(H) 8 - 23 mg/dL 09/20/2024 11:03 PM EDT [facility] Creatinine, Plasma 0.93 0.70 - 1.20 mg/dL 09/20/2024 11:03 PM EDT [facility] BUN/Creatinine Ratio 29 09/20/2024 11:03 PM EDT [facility] Sodium, Plasma 134(L) 136 - 145 mmol/L 09/20/2024 11:03 PM EDT [facility] Potassium, Plasma 5.0(H) 3.6 - 4.9 mmol/L 09/20/2024 11:03 PM EDT [facility] Chloride, Plasma 101 97 - 107 mmol/L 09/20/2024 11:03 PM EDT [facility] CO2, Plasma 22 22 - 29 mmol/L 09/20/2024 11:03 PM EDT [facility] Anion Gap 11 6 - 16 mmol/L 09/20/2024 11:03 PM EDT [facility] Total Calcium, Plasma 9.1 8.9 - 10.2 mg/dL 09/20/2024 11:03 PM EDT [facility] Total Protein 6.6 6.3 - 7.9 g/dL 09/20/2024 11:03 PM EDT [facility] Albumin, Plasma 3.9 3.5 - 5.2 g/dL 09/20/2024 11:03 PM EDT [facility] AST, Plasma 11 10 - 50 U/L 09/20/2024 11:03 PM EDT [facility] ALT, Plasma 16 10 - 50 U/L 09/20/2024 11:03 PM EDT [facility] Alkaline Phosphatase, Plasma 132(H) 40 - 115 U/L 09/20/2024 11:03 PM EDT [facility] Total Bilirubin, Plasma 0.6 0.2 - 1.1 mg/dL 09/20/2024 11:03 PM EDT [facility] eGFRcr 91.1 mL/min/1.7 3m*2 09/20/2024 11:03 PM EDT [facility] Comment:Reported eGFRcr in m L/min/1.73m2 is based the CKD-EPI 2020 equation that does not use a race coefficient. Blood Venous blood specimen / Unknown Venipuncture / Unknown 09/20/2024 10:33 PM EDT 09/20/2024 10:42 PM EDT Giorgi Perkins MD LAB BLOOD ORDERABLES Final Result [facility] [address] [place] [address] documented in this encounter Visit Diagnoses Diagnosis [...] Rivas RN)[id number] (Not Given - Provider: Cristiane Riavs RN - Reason: Order parameters not met)[id number] (Given - Provider: Melecio Vega RN)1800 (Canceled Entry - Provider: Automatic Discharge Provider - Comment: Automatically canceled at discontinue of medication order) lactated Ringer's bolus 500 mL (COMPLETED) 500 mL, Intravenous, Once, 1 dose, On 09/21/24 at 1945, Administer over 2 Hours, Routine 2051 (New Bag - Provider: Cristiane Rivas RN - Comment: given after awake overnight monitor assesment) lisinopril tablet 10 mg 10 mg, [...] documented as of this encounter Care Teams Supervisor [employer] Relationship Specialty Start Date End Date Asad Victor MD [address] [place] [address] PCP - General 10/07/22 documented as of this encounter
--- OUTSIDE RECORDS SUMMARY | 2024-10-11 10:15 | XMS_ITS | Encounter Summary ---
Author Organization [facility] Address [address] [place] [address] Care Team Providers Care Contracting Engineer Name Role Phone Asad Victor MD Primary Care Provider + [phone] Encounter Details Date Type Department Care Team (Latest Contact Info) Description 10/11/2024 10:15 AM EDT Pre-Admission Testing [facility] Pre-op Clinic [address] [place] [phone] Preop testing (Primary Dx) Anesthesia Record Procedure [...] Hand; Site Prep: Chlorhexidine ; Local Anesth: [place]; Technique: Anatomical landmarks; Inserted by: CHRISTIAN Acuna; [...] G; Orientation: Right; Location: Axillary; Inserted by: SENIOR QUALITY MANAGER; Securement: Sutured; Patient Tolerance: Tolerated well; Removal [...] drink first t dino in the morning (EYE-PRODUCT APPLICATIONS ENGINEER) to steady your nerves or to get [...] T2DM, HLD, HTN, RLS who presented to [facility] with a large left common [...] note 09/25/24 (media) + CAD s/p multiple [place]'s and 3V CABG 02/2019, 2 stents prior to CABG Atrial Fibrillation with RVR s/p CABG + carotid artery disease s/p R CEA 2016 + 3rd degree AV block PUBLIC AFFAIRS SPECIALIST-P placed 08/2023 for Wenkeback with 11 sec pause + HLD + HTN - controlled + PAD 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 S/P intravascular lithotripsy of left common and external iliac artery with 2 continuous balloon mounted bare metal stents 09/12/24 on Xarelto and ASA + WILHELM occ, low energy for > year - had work-up recently in [place] (will get records) + peripheral edema LLE [...] ENDARTERECTOMY N/A 2017 Endarterectomy Carotid Artery from [facility] CORONARY ANGIOPLASTY Left Coronary Angiography With Concomitant Left Heart Catheterization from [facility] CORONARY ARTERY BYPASS GRAFT N/A 2018 3V ELBOW SURGERY Right OTHER SURGICAL HISTORY N/A Reported Prior Surgical / Procedural History from [facility] [5] No Known Allergies [6] Current Outpatient [...] card, photo ID, along with power of claims attorney, guardianship or advanced directives if applicable [...] Info) Description 11/26/2024 2:00 PM EDT Appointment [facility] [address] [facility] [address] [place] [address] 11/26/2024 2:30 PM EDT Appointment [facility] [address] [facility] [address] [place] [address] 11/26/2024 3:20 PM EDT Office Visit [facility] [address] [place] [address] Elisabet Schuster PA [address] [place] [address] 11/29/2024 2:30 PM EDT Office Visit [facility] [address] [place] [address] Oscar Appiah MD [address] [facility] [address] [place] [address] documented as of this encounter [...] Modality Other Narrative 10/17/2024 9:50 AM EDT [facility]: Pre-operative CIED Report Assessment and Sara-Procedural Reommendations: Name: Mono Bobby Date: 10/17/2024 : 1960 Age: 64 y.o. Patient has a Drawing Press Operator: Berger PUBLIC AFFAIRS SPECIALIST-PM Remaining battery longevity adequate. Lead integrity test [...] recommendations. Supporting reports can be found in [employer] media file. us Emelina DOSHI CV IMPLANTABLE [...] documented as of this encounter Care Teams Contracting Engineer Relationship Specialty Start Date End Date Asad Victor MD [address] [place] [address] PCP - General 10/07/22 documented as of this encounter
--- OUTSIDE RECORDS SUMMARY | 2024-10-16 14:45 | XMS_ITS | Encounter Summary ---
Author Organization Healthcare Address [address] [place] [address] Care Team Providers Care Headstart Teacher Name Role Phone Asad Victor MD Primary Care Provider + [phone] Encounter Details Date Type Department Care Team (Latest Contact Info) Description 10/16/2024 2:45 PM EDT - 10/16/2024 11:59 PM EDT Hospital Encounter Cardiac Imaging [address] [place] [address] Discharge Disposition: Home or Self Care Social [...] drink first t dino in the morning (EYE-FISHER) to steady your nerves or to get [...] Info) Description 11/26/2024 2:00 PM EDT Appointment [facility] [address] [place] [address] 11/26/2024 2:30 PM EDT Appointment [facility] [address] [place] [address] 11/26/2024 3:20 PM EDT Office Visit [facility] [address] [place] [address] Elisabet Schuster PA [address] [facility] [address] [place] [address] 11/29/2024 2:30 PM EDT Office Visit [facility] [address] [place] [address] Oscar Appiah MD [address]01 [facility] 100 [place] [address] documented as of this encounter Goals Goal [...] Modality Other Narrative 10/17/2024 9:50 AM EDT [facility]: Pre-operative CIED Report Assessment and Sara-Procedural Reommendations: Name: Mono Bobby Date: 10/17/2024 : 1960 Age: 64 y.o. Patient has a Law Clerk: Berger UMBRELLA FINISHER-PM Remaining battery longevity adequate. Lead integrity test [...] recommendations. Supporting reports can be found in [employer] media file. 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
--- OUTSIDE RECORDS SUMMARY | 2024-10-17 06:21 | XMS_ITS | Encounter Summary ---
Author Organization [facility] Address [address] [id number] Care Team Providers Care Head Of Physics Name Role Phone Asad Victor MD Primary Care Provider [phone] Reason for Referral * Imaging (Routine) - Authorized Specialty Diagnoses / Procedures Referred By Susan t Referred To Contact Cardiology Diagnoses Critical limb ischemia of left lower extremity Pseudoaneurysm of left femoral artery (CMS/HCC) Procedures VAS US Arterial Duplex Lower Extremity Unilateral Left Terrell Gautam MD [address] [address] Phone: tel: fax: Referral ID Status Reason Start Date Expiration Date Visits Requested Visits Authorized [id number] Authorized Perform Procedure 10/19/2024 04/20/2026 1 1 * Imaging (Routine) - Authorized Specialty Diagnoses / Procedures Referred By Contac t Referred To Contact Cardiology Diagnoses Critical limb ischemia of left lower extremity Pseudoaneurysm of left femoral artery (CMS/HCC) Procedures VAS Ankle Brachial Index - Segmental Terrell Gautam MD [id number] [place] [address] Phone: tel: fax: Referral ID Status Reason Start Date Expiration Date Visits Requested Visits Authorized [id number] Authorized Perform Procedure 10/19/2024 04/20/2026 1 1 * Consultation (Routine) - Authorized Specialty Diagnoses / Procedures Referred By Contact Referred To Contact Vascular Surgery / [facility] Diagnoses Critical limb ischemia of left lower extremity Pseudoaneurysm of left femoral artery (CMS/HCC) Terrell Gautam MD [address] [place] [address] Phone: tel:[phone] fax:[phone] [facility] [address] [place] [address] 5th Floor Wing [address] [place] [address] Phone: tel: fax: Referral ID Status Reason Start Date Expiration Date Visits Requested Visits Authorized [id number] Authorized Specialty Services Required 10/19/2024 04/20/2026 [address] Gautam, with SIL, arterial duplex Reason for Visit * Auth/Cert (Routine) Specialty Diagnoses / Procedures Referred By Susan t Referred To Contact Diagnoses Critical limb ischemia of left lower extremity Critical limb ischemia of left lower extremity [I70.222] Procedures NE VEIN BYPASS GRAFT,FEM-POP CREATION, BYPASS, ARTERIAL, FEMORAL TO POPLITEAL Terrell Gautam MD [address] [place] [address] Phone: tel: fax: [facility] A OPERATING ROOM [address] [place] [address] Phone: tel: Referral ID Status Reason Start Date Expiration Date Visits Re quested Visits Authorized [id number] 1 1 Encounter Details Date Type Department Care Team (Latest Contact Info) Description 10/17/2024 6:21 AM EDT - 10/19/2024 12:39 PM EDT Hospital Encounter [facility] H Inpatient [address] [place] [phone] Terrell Gautam MD [address] [place] [address] Pseudoaneurysm of left femoral artery (CMS/HCC) [...] any time in the past 12 m [facility], were you homeless or living in [...] drink first t dino in the morning (EYE-ORTHOPEDICS TEACHER) to steady your nerves or to get rid of a hangover? 0 10/18/2021 CAGE Questionnaire Score 0 022 Utilities Answer Date Recorded In the past 12 months has th [employer], gas, oil, or water [employer] threatened to shut off services in your [...] provided Taken 10/17/20242107 by Jourdan Grimes II coal washer Review/Management: medications reviewed Problem: Skin Injury Risk [...] Ongoing, Progressing Intervention: Promote Activity and Functional [place] Flowsheets (Taken 10/19/2024 1048) Self-Care Promotion: BADL personal objects within reach meal set-up provided * Yuni Ramires - Keyla Chow - 10/19/2024 11:45 AM EDT Images from the original note were not included. [id number] After Peripheral Artery Bypass Surgery: In the [...] home. Last Reviewed Date: 2023 00:00:00 ?? [id number] [employer]. All rights reserved. This information is not intended as a substitute for professional medical care. Always follow your healthcare professional's instructions. * Progress Notes - Emelina Friend - 10/19/2024 11:44 AM EDT Case Management Adult Progress Note Bev Bobby 64 y.o. male CSN: [id number] Admission: 10/17/2024 6:21 AM Primary Problem: Critical [...] if any other needs arise. Emelina Friend CHAIR INSPECTOR AND LEVELER, RADIO INTERFERENCE EXPERT Social Work Case Management * Yuni OviJOSE MANUEL Chow Keyla - 10/19/2024 11:44 AM EDT Images from the original note were not included. [id number] Peripheral Artery Disease (PAD) Peripheral artery disease [...] cause. Last Reviewed Date: 2024 00:00:00 ?? [id number] [employer]. All rights reserved. This information is not intended as a substitute for professional medical care. Always follow your healthcare professional's instructions. * Yuni DiorNAVYA - Keyla Chow - 10/19/2024 11:44 AM EDT Images from the original note were not included. [id number] Leg Artery Emergencies: Critical Limb Ischemia (CLI) [...] appointments. Last Reviewed Date: 2023 00:00:00 ?? [id number] [employer]. All rights reserved. This information is not intended as a substitute for professional medical care. Always follow your healthcare professional's instructions. * Discharge Summary - Dandy Baltazar MD - 10/19/2024 11:31 AM EDT Hospitalization Admit Date/Time: 10/17/2024 6:21 AM Admitting Attending: Terrell Gautam Discharge Date: 10/19/24 Discharge Attending Physician: Nirmal Cueto MD PCP name and Address: Asad Victor MD (Inactive) [address] [place] [address] / [facility] [address] Referring provider name and address: Timothy Marques PA [address] [place] [address] Chief Concern, Brief History of Present Illness, and Hospital Course Bev Bobby is an 64 y.o. 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 He [...] Medications These medications were sent to [facility] - [place], [place] - [address], [facility] [address] acetaminophen 500 MG tablet clopidogrel 75 MG [...] of water. 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 He [...] provided Taken 10/17/20242107 by Jourdan Grimes II, coal washer Review/Management: medications reviewed Problem: Skin Injury Risk [...] Ongoing, Progressing Intervention: Promote Activity and Functional [place] Flowsheets (Taken 10/19/2024 1048) Self-Care Promotion: BADL [...] evaluation. PARTICIPANTS IN CARE Visitors Present No Ground Support Equipment Fitter (if applicable) PRESENTATION Oxygen Oxygen Therapy: None [...] Level of Mobility Ambulatory- household only Mobility [place] Independent gait with device (rollator) History of [...] numbness in rodney) BED MOBILITY Level of [place] Physical/Non- physical Assist Adaptive Equipment Utilized Rolling/ Turning Scooting/ Bridging Modified independence (anteriorly to EOB) Bed rails Supine to Sit Modified [place] (to the right) (HOB flat) Bed rails Sit to Supine Interventions HOB flat to simulate home environment TRANSFERS Level of [place] Physical/Non- physical Assist Adaptive Equipment Utilized Sit [...] stable surfaces during transitions. AMBULATION Level of [place] Distance Adaptive Equipment Utilized Ambulation Standby assist, [...] Posture: Forward head, Rounded shoulders Level of [place] Balance Support Interventions Static Sit Independent Right [...] 3-5 steps with a railing?: A little [facility] 6-Clicks Mobility Assessment Total : [...] evaluation/session. Participants in Care Family/Caregiver Present: No Ground Support Equipment Fitter: Not Applicable Presentation Oxygen Therapy: None (Room [...] Level of Mobility: Ambulatory- household only Mobility [place]: Independent gait with device (rollator) History of [...] Mobility Bed Mobility Exam: Scooting/Bridging Level of [place]: Modified independence (anteriorly to EOB) Assistive Device: Bed rails Bed Mobility Exam: Supine to Sit Level of [place]: Modified [place] (to the right) Physical/Nonphysical Assist: (HOB flat) Assistive Device: Bed rails Transfers Transfer Exam: Sit to stand Level of [place]: Stand-by assist Physical/Nonphysical Assist: Supervision, Verbal Cues, Minimal cues Assistive Device: Walker, rolling Transfer Exam: Stand to Sit Level of [place]: Stand-by assist Physical/Nonphysical Assist: Supervision, Verbal Cues, [...] regarding toileting at this time. Standardized Assessments [facility] 6-Click Daily Activities Help from Other: Don/Doff Regular Lower Body Clothings: None Help From Other: Bathing: Little Help From Other: Toileting: None Help From Other: Don/Doff Upper Body Clothings: None Help From Other: Grooming: None Help From Other: Eating Meals: None [facility] 6 Click - Daily Activities Score: 23/24 [facility] Scoring Interpretation: Scores greater than [...] Note Bev Bobby 64 y.o. male CSN: [id number] Admission: 10/17/2024 6:21 AM Primary Problem: Critical limb ischemia of left lower extremity Turf And Grounds Supervisor reviewed chart and spoke with patient to complete this Initial Case Management Assessment. PCP: Asad Victor MD (Inactive) - Dr. Palomo Preferred pharmacy is [facility] Emergency Contact: Extended Emergency Contact Information Primary Emergency Contact: Patti Hill Relation: Sister Ground Support Equipment Fitter needed? No Insurance: Primary Visit Coverage Payer Plan Sponsor Code Group Number Group Name [facility] MED[facility] MEDIC[facility] REPLACEMENT [id number] Primary Visit Coverage Subscriber Subscriber ID Subscriber Name Subscriber N Subscriber Address [id number] BEV BOBBY [id number] [place] [address] Secondary Visit Coverage Payer Plan Sponsor Code Group Number Group Name [facility] Secondary Visit Coverage Subscriber Subscriber ID Subscriber Name Subscriber N Subscriber Address [id number] BEV BOBBY [id number] [place] [address] Patient information: Primary Caregiver: Self Daily Living Activities: Functional Status: Independent Living Arrangements: Alone Type of Residence: Private residence, Single Level [address] [place] [address] Current DME: Equipment Currently Used at Home: walker, rollator Income Information: Income Source: Retired Income/Expense Information: Income meets expenses Current Resources Utilized: Food [place] Housing Circumstances-Z Codes: Housing Circumstances (select all [...] Dialysis Services: None. Living Will/Advance Directive/Power of Capacity Analyst /Guardian: Denied. Additional Comments: Patient is not medically ready for discharge. SW will continue to follow. Mariia Macedo RADIO INTERFERENCE EXPERT * Care Plan - Emilia Alonso RN [...] from the original note were not included. [facility] Department of Surgery Division of [...] pads utilized * Anesthesia PACU Signout - Celesitne Andrade DO - 10/17/2024 2:23 PM EDT [...] Agree with above assessment and evaluation from resident/IMMUNOLOGY TEACHER. * Op Note - Terrell Gautam MD - 10/17/2024 8:52 AM EDT Operative Note Date: 10/17/24 Location: [facility] Name: Bev Bobby, : 1960, Diagnoses: Pre-op Diagnosis Critical limb ischemia of left lower extremity Common femoral artery pseudoaneurysm Post-op Diagnosis Critical limb ischemia of left lower extremity Common femoral artery pseudoaneurysm Procedure(s): Left common/superficial/profunda femoral thromboendarterectomy with bovine patch repair Left external iliac artery/ASSISTANT PLANT CONTROL OPERATOR stent Attending Surgeon(s): * Terrell Gautam - Primary Thread Grinder(s): * Luna Beckett MD - Resident - [...] Reasons Recent surgery contiguous with urinary tract/SUPERVISOR PUBLIC MESSAGE SERVICE/colorectal 10/17/24 190 Output (mL) 50 mL 10/18/24 08 Implants Type Name Action Serial No. VASCUGUARD 8 X 8 - [id number] Implanted STENT ENDOPROSTHESIS VIABAHN 9FR [id number] - [id number] Implanted [id number] Specimen: Specimens ID Source Frozen? 1 Other [...] and distal control. We then proceeded with bchyj-kvg-yxwu exposure of the popliteal artery. A medial [...] balloon dilated thestent with a 9 mm [place]. We closed the arteriotomy with a single [...] 10/17/2024 8:52 AM EDT Date: 10/17/24 Location: [facility] Name: Bev Perez Kanu, : 1960, Diagnoses: Pre-op Diagnosis Critical limb ischemia of left lower extremity Common femoral artery pseudoaneurysm Post-op Diagnosis Critical limb ischemia of left lower extremity Common femoral artery pseudoaneurysm Procedure(s): Left common/superficial/profunda femoral thromboendarterectomy with bovine patch repair Left external iliac artery/ASSISTANT PLANT CONTROL OPERATOR stent Attending Surgeon(s): * Terrell Gautam - Primary Thread Grinder(s): * Luna Beckett MD - Resident - Assisting * Dandy Baltazar MD - Fellow Anesthesia: General ASA: III Blood Administration: Blood Product Administration History None Estimated Blood Loss: 300 mL Drains: Urethral Catheter Temperature probe 16 Fr. (Active) Implants Type Name Action Serial No. VASCUGUARD 8 X 8 - [id number] Implanted STENT ENDOPROSTHESIS VIABAHN 9FR [id number] - [id number] Implanted [id number] Specimen: Specimens ID Source Frozen? 1 Other [...] issues. 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 He previouslyunderwent thrombin injection. He reports pain in his calves. He presents today for scheduled left lower extremity femoral to cddwy-xqx-tgua popliteal bypass. Planned likely use PTFE. He [...] 16. Results Review {Vanishing Link Review Results :[id number] I have reviewed the latest lab and imaging results. Assessment & Plan Critical limb ischemia of left lower extremity Proceed with scheduled surgery left lower extremity femoral to geqcz-rbu-aogp popliteal artery bypass graft. Extensive discussion had [...] Info) Description 11/26/2024 2:00 PM EDT Appointment [facility] [address] [place] [address] 11/26/2024 2:30 PM EDT Appointment [facility] [address] [place] [address] 11/26/2024 3:20 PM EDT Office Visit [facility] [address] [place] [address] Elisabet Schuster, GLENDA [address] [facility] [address] [place] [address] 11/29/2024 2:30 PM EDT Office Visit [facility] [address] [place] [phone] Oscar Appiah MD [address] [facility] [address] [place] [address] Pending Results Name Type Priority [...] PREPARE RBC STAT 10/17/2024 8:06 AM EDT NE VEIN BYPASS GRAFT,FEM-POP 10/17/2024 7:38 AM EDT [...] Comment 10/19/2024 11:42 AM EDT HEALTHCARE LAB Electronic Assembly ID KamranJob 10/20/19 11:42 AM EDT HEALTHCARE LAB Device ID [id number] 10/19/2024 11:42 AM EDT [facility] Specimen Type POC Capillary 10/19/2024 11:42 AM EDT [facility] Blood Capillary blood specimen / Unknown 10/19/2024 11:40 AM EDT 10/19/2024 11:42 AM EDT us Terrell Gautam MD LAB POINT OF CARE TE ST DOCKED DEVICE UNSOLICITED RESULTS Final Result Performing Organization Address City/State/[facility] Co de Phone Number HEALTHCARE LAB [address] [place] [address] * (ABNORMAL) Protime-INR (10/19/2024 8:25 AM EDT) [...] INR 2.5 to 3.5 Prevention of recurrent GA INR 2.5 to 3.5 Nirmal Cueto MD LAB BLOOD ORDERABLES Final Result [facility] [address] [place] [address] * (ABNORMAL) Phosphorus (10/19/2024 8:25 AM EDT) Phosphorus, Plasma 2.2(L) 2.5 - 4.5 mg/dL 10/19/2024 9:12 AM EDT [facility] Blood Venous blood specimen / Unknown Venipuncture / Unknown 10/19/2024 8:25 AM EDT 10/19/2024 8:43 AM EDT Nirmal Cueto MD LAB BLOOD ORDERABLES Final Result Performing Organization Address City/[facility]/ZIP Co de Phone Number [facility] [address] [place] [address] * Magnesium (10/19/2024 8:25 AM EDT) Magnesium, Plasma 2.1 1.9 - 2.4 mg/dL 10/19/2024 9:12 AM EDT [facility] Blood Venous blood specimen / Unknown Venipuncture / Unknown 10/19/2024 8:25 AM EDT 10/19/2024 8:43 AM EDT Nirmal Cueto MD LAB BLOOD ORDERABLES Final Result Performing Organization Address City/[facility]/ZIP Co de Phone Number [facility] [address] [place] [address] * (ABNORMAL) Basic metabolic panel (10/19/2024 8:25 [...] Result [facility] [address] [place] [address] * (ABNORMAL) CBC W/O Differential (10/19/2024 8:25 [...] Final Result [facility] [address] [place] [address] * (ABNORMAL) POCT glucose meter (10/19/2024 7:35 AM EDT) [facility] POCT Glucose 187(H) 74 - 99 [...] Comment 10/19/2024 7:37 AM EDT HEALTHCARE LAB Electronic Assembly ID Job Andrew 10/20/19 7:37 AM EDT HEALTHCARE LAB Device ID [id number] 10/19/2024 7:37 AM EDT HEALTH[facility]ARE LAB Specimen Type POC Capillary 10/19/2024 7:37 AM EDT [facility] Blood Capillary blood specimen / Unknown 10/19/2024 7:35 AM EDT 10/19/2024 7:37 AM EDT us Terrell Gautam MD LAB POINT OF CARE TE ST DOCKED DEVICE UNSOLICITED RESULTS Final Result Performing Organization Address City/State/[facility] Co de Phone Number [facility] [address] [place] [address] * (ABNORMAL) POCT glucose meter (10/18/2024 7:22 PM EDT) [facility] POCT Glucose 178(H) 74 - 99 [...] 10/18/2024 7:24 PM EDT [facility] Electronic Assembly ID Mahesh Aldana 10/18/2024 7:24 PM EDT [facility] Device ID [id number] 10/18/2024 7:24 PM EDT [facility]ALTH[facility]ARE LAB Specimen Type POC Capillary 10/18/2024 7:24 PM EDT [facility] Blood Capillary blood specimen / Unknown 10/18/2024 7:22 PM EDT 10/18/2024 7:24 PM EDT Terrell Gautam MD LAB POINT OF CARE TE ST DOCKED DEVICE UNSOLICITED RESULTS Final Result Performing Organization Address City/[facility]/ZIP Co de Phone Number [facility] [address] [place] [address] * (ABNORMAL) POCT glucose meter (10/18/2024 6:07 [...] Comment 10/18/2024 6:09 PM EDT HEALTHCARE LAB Electronic Assembly ID David Parks 10/18/2024 6:09 PM EDT HEALTHCARE LAB Device ID [id number] 10/18/2024 6:09 PM EDT HEALTH[facility]ARE LAB Specimen Type POC Capillary 10/18/2024 6:09 PM EDT [facility]ARE [facility] Blood Capillary blood specimen / Unknown 10/18/2024 6:07 PM EDT 10/18/2024 6:09 PM EDT us Terrell Gautam MD LAB POINT OF CARE TE ST DOCKED DEVICE UNSOLICITED RESULTS Final Result [facility] [address] [phone] * (ABNORMAL) POCT glucose meter (10/18/2024 11:56 [...] Comment 10/21/2024 7:42 AM EDT HEALTHCARE LAB Electronic Assembly ID Venessa Marcano 10/21/2024 7:42 AM EDT [facility] Device ID [id number] 10/21/2024 7:42 AM EDT [facility] Specimen Type POC Capillary 10/21/2024 7:42 AM EDT [facility] Blood Capillary blood specimen / Unknown 10/18/2024 11:56 AM EDT 10/21/2024 7:42 AM EDT us Terrell Gautam MD LAB POINT OF CARE TE ST DOCKED DEVICE UNSOLICITED RESULTS Final Result Performing Organization Address City/State/[facility] de Phone Number HEALTHCARE LAB [address] [place] [address] * (ABNORMAL) POCT glucose meter (10/18/2024 9:24 [...] 10/21/2024 7:42 AM EDT [facility] Electronic Assembly ID Emilia Alonso 7:42 AM EDT [facility] Device ID [id number] 10/21/2024 7:42 AM EDT HEALTHCARE LAB Specimen Type POC Venous 10/21/2024 7:42 AM EDT [facility]ARE [facility] Blood Venous blood specimen / Unknown 10/18/2024 9:24 AM EDT 10/21/2024 7:42 AM EDT us Terrell Gautam MD LAB POINT OF CARE TE ST DOCKED DEVICE UNSOLICITED RESULTS Final Result [facility] [address] [place] [address] * (ABNORMAL) POCT glucose meter (10/18/2024 7:36 AM EDT) [facility] POCT Glucose 215(H) 74 - 99 [...] for testing. Comment 10/18/2024 7:38 AM EDT [facility] Electronic Assembly ID Kizzy Godfrey 025 7:38 AM EDT [facility] Device ID [id number] 10/18/2024 7:38 AM EDT [facility] Specimen Type POC Capillary 10/18/2024 7:38 AM EDT [facility] Blood Capillary blood specimen / Unknown 10/18/2024 7:36 AM EDT 10/18/2024 7:38 AM EDT us Terrell Gautam MD LAB POINT OF CARE TE ST DOCKED DEVICE UNSOLICITED RESULTS Final Result [facility] [address] [place] [address] * (ABNORMAL) CBC (10/18/2024 2:09 AM EDT) [facility] WBC Count 16.71(H) 3.70 - 10.30 [...] Final Result [facility] [address] [place] [address] * (ABNORMAL) Basic metabolic panel (10/18/2024 2:09 [...] Result [facility] [address] [place] [address] * (ABNORMAL) Magnesium (10/18/2024 2:09 AM EDT) Magnesium, Plasma 1.8(L) 1.9 - 2.4 mg/dL 10/18/2024 2:53 AM EDT [facility] Blood Venous blood specimen / Unknown Venipuncture / Unknown 10/18/2024 2:09 AM EDT 10/18/2024 2:25 AM EDT Nirmal Cueto MD LAB BLOOD ORDERABLES Final Result [facility] [address] [place] [address] * Phosphorus (10/18/2024 2:09 AM EDT) Phosphorus, Plasma 3.7 2.5 - 4.5 mg/dL 10/18/2024 2:53 AM EDT [facility] Blood Venous blood specimen / Unknown Venipuncture / Unknown 10/18/2024 2:09 AM EDT 10/18/2024 2:25 AM EDT Nirmal Cueto MD LAB BLOOD ORDERABLES Final Result Performing Organization Address [facility]/ZIP Co de Phone Number [facility] [address] [place] [address] * (ABNORMAL) Protime-INR (10/18/2024 2:09 AM EDT) [...] INR 2.5 to 3.5 Prevention of recurrent GA INR 2.5 to 3.5 us Nirmal Cueto MD LAB BLOOD ORDERABLES Final Result [facility] [address] [place] [address] * (ABNORMAL) POCT glucose meter (10/18/2024 2:08 AM EDT) [facility] POCT Glucose 202(H) 74 - 99 [...] Comment 10/18/2024 2:10 AM EDT HEALTHCARE LAB Electronic Assembly ID Jourdan Grimes II 10/18/2024 2:10 AM EDT HEALTHCARE LAB Device ID [id number] 10/18/2024 2:10 AM EDT HEALTHCARE LAB Specimen Type POC Capillary 10/18/2024 2:10 AM EDT [facility] Blood Capillary blood specimen / Unknown 10/18/2024 2:08 AM EDT 10/18/2024 2:10 AM EDT us Terrell Gautam MD LAB POINT OF CARE TE ST DOCKED DEVICE UNSOLICITED RESULTS Final Result Performing Organization Address City/State/[facility] Co de Phone Number HEALTHCARE LAB [address] [place] [address] * (ABNORMAL) POCT glucose meter (10/17/2024 10:07 PM EDT) [facility] POCT Glucose 300(H) 74 - 99 [...] Comment 10/17/2024 10:10 PM EDT HEALTHCARE LAB Electronic Assembly ID Jourdan Grimes II 10/17/2024 10:10 PM EDT HEALTHCARE LAB Device ID [id number] 10/17/2024 10:10 PM EDT HEALTHCARE LAB Specimen Type POC Capillary 10/17/2024 10:10 PM EDT [facility]ALTH[facility]ARE LAB Blood Capillary blood specimen / Unknown 10/17/2024 10:07 PM EDT 10/17/2024 10:10 PM EDT Terrell Gautam MD LAB POINT OF CARE TE ST DOCKED DEVICE UNSOLICITED RESULTS Final Result Performing Organization Address City/[facility] Co de Phone Number [facility]ALTH[facility]ARE LAB [address] [place] [address] * (ABNORMAL) POCT glucose meter (10/17/2024 8:07 PM EDT) Path[facility] POCT Glucose 391(H) 74 - 99 mg/dL [...] Comment 10/17/2024 8:10 PM EDT HEALTHCARE LAB Electronic Assembly ID Jourdan Grimes II 10/17/2024 8:10 PM EDT HEALTHCARE LAB Device ID [id number] 10/17/2024 8:10 PM EDT HEALTHCARE LAB Specimen Type POC Capillary 10/17/2024 8:10 PM EDT [facility] Blood Capillary blood specimen / Unknown 10/17/2024 8:07 PM EDT 10/17/2024 8:10 PM EDT Terrell Gautam MD LAB POINT OF CARE TE ST DOCKED DEVICE UNSOLICITED RESULTS Final Result Performing Organization Address City/[facility]/ZIP Co de Phone Number [facility] [address] [place] [address] * (ABNORMAL) POCT glucose meter (10/17/2024 4:01 PM EDT) Pathologist [facility] POCT Glucose 249(H) 74 - 99 mg/dL [...] Comment 10/17/2024 4:03 PM EDT HEALTHCARE LAB Electronic Assembly ID Keisha Waller 10/17/2024 4:03 PM EDT HEALTHCARE LAB Device ID [id number] 10/17/2024 4:03 PM EDT HEALTHCARE LAB Specimen Type POC Capillary 10/17/2024 4:03 PM EDT HEALTHCARE LAB Blood Capillary blood specimen / Unknown 10/17/2024 4:01 PM EDT 10/17/2024 4:03 PM EDT us Terrell Gautam MD LAB POINT OF CARE TE ST DOCKED DEVICE UNSOLICITED RESULTS Final Result Performing Organization Address City/State/[facility] Co de Phone Number HEALTHCARE LAB [address] [place] [address] * (ABNORMAL) POCT glucose meter (10/17/2024 1:25 PM EDT) [facility] POCT Glucose 225(H) 74 - 99 [...] 10/17/2024 1:27 PM EDT [facility] Electronic Assembly ID Kizzy Godfrey 025 1:27 PM EDT HEALTHCARE LAB Device ID [id number] 10/17/2024 1:27 PM EDT HEALTHCARE LAB Specimen Type POC Capillary 10/17/2024 1:27 PM EDT HEALTHCARE LAB Blood Capillary blood specimen / Unknown 10/17/2024 1:25 PM EDT 10/17/2024 1:27 PM EDT us Terrell Gautam MD LAB POINT OF CARE TE ST DOCKED DEVICE UNSOLICITED RESULTS Final Result Performing Organization Address City/[facility] Co de Phone Number HEALTHCARE LAB [address] [place] [address] * [place] Less than 1 Hour Intraoperative (10/17/2024 1:18 PM EDT) Narrative IMAGING - 10/17/2024 2:05 PM EDT Images were obtained for surgical purposes. See Terrell Gautam's surgical note in the patient's chart for the findings. Terrell Gautam MD IMG FLUOROSCOPY PROCEDURES Fi nal Result Performing Organization Address [facility] Co de Phone Number IMAGING * POCT ACT (10/17/2024 12:23 PM EDT) ACT+ (HIGH RANGE) 211 68 - 600 Seconds 10/29/2024 7:28 AM EDT HEALTHCARE LAB Electronic Assembly ID Donna Mcmillan 10/29/2024 7:28 AM EDT HEALTHCARE LAB ACT Device ID [id number] 10/29/2024 7:28 AM EDT [facility] [...] UNSOLICITED RESULTS Final Result Performing Organization Address [facility] Co de Phone Number [facility] [address] [place], [place] [id number] [place] [address] LAB [address] [place] [address] * (ABNORMAL) Blood gas, arterial (10/17/2024 11:48 [...] Re sult [facility] [address] [place] [address] * POCT ACT (10/17/2024 11:41 AM EDT) ACT+ (HIGH RANGE) 175 68 - 600 Seconds 10/29/2024 7:28 AM EDT HEALTHCARE LAB Electronic Assembly ID Oneyda Alicea 10/29/2024 7:28 AM EDT HEALTHCARE LAB ACT Device ID [id number] 10/29/2024 7:28 AM EDT HEALTHCARE LAB Comment [...] ST DOCKED DEVICE UNSOLICITED RESULTS Final Result [facility] [address] LAB [address] [place] [address] * POCT ACT (10/17/2024 11:11 AM EDT) ACT+ (HIGH RANGE) 252 68 - 600 Seconds 10/29/2024 7:28 AM EDT HEALTHCARE LAB Electronic Assembly ID Donna Mcmillan 10/29/2024 7:28 AM EDT HEALTHCARE LAB ACT Device ID [id number] 10/29/2024 7:28 AM EDT HEALTHCARE LAB Comment [...] DOCKED DEVICE UNSOLICITED RESULTS Final Result [facility] [address] LAB [address] [place] [address] * (ABNORMAL) Blood gas, arterial (10/17/2024 10:46 [...] Re sult [facility] [address] [place] [address] * POCT ACT (10/17/2024 10:37 AM EDT) ACT+ (HIGH RANGE) 206 68 - 600 Seconds 10/29/2024 7:28 AM EDT [facility] Electronic Assembly ID Donna Mcmillan 10/29/2024 7:28 AM EDT [facility] ACT Device ID [id number] 10/29/2024 7:28 AM EDT [facility] Comment 10/29/2024 7:28 AM EDT THOMAS [...] ST DOCKED DEVICE UNSOLICITED RESULTS Final Result [facility] [address] LAB [address] [place] [address] * Surgical Pathology Exam (10/17/2024 10:27 AM EDT) Case Report Surgical Pathology Case: [id number] Authorizing Provider: Terrell Gautam MD Collected: 10/17/2024 [...] cm. The specimen is serially sectioned and parts counter representative sections are submitted in cassette A1. [...] grimaldo Result [facility] [address] [place] [address] * POCT ACT (10/17/2024 10:03 AM EDT) ACT+ (HIGH RANGE) 244 68 - 600 Seconds 10/29/2024 7:28 AM EDT HEALTHCARE LAB Electronic Assembly ID Donna Mcmillan Maya 10/29/2024 7:28 AM EDT [facility] ACT Device ID [id number] 10/29/2024 7:28 AM EDT [facility] [...] ST DOCKED DEVICE UNSOLICITED RESULTS Final Result [facility] [address] LAB [address] [place] [address] * (ABNORMAL) Blood gas, arterial (10/17/2024 9:45 [...] EDT 10/17/2024 9:52 AM EDT Jenna Lopez IMMUNOLOGY TEACHER LAB BLOOD ORDERABLES Final Re sult [facility] [address] [place] [address] * (ABNORMAL) Blood gas, arterial (10/17/2024 8:47 [...] 10/17/2024 8:58 AM EDT us Jenna Lopez [facility] BLOOD ORDERABLES Final Re sult [facility] [address] [place] [address] * POCT ACT (10/17/2024 8:46 AM EDT) ACT+ (HIGH RANGE) 101 68 - 600 Seconds 10/29/2024 7:28 AM EDT HEALTHCARE LAB Electronic Assembly ID Donna Mcmillan Maya 10/29/2024 7:28 AM EDT HEALTHCARE LAB ACT Device ID [id number] 10/29/2024 7:28 AM EDT HEALTHCARE LAB Comment [...] UNSOLICITED RESULTS Final Result Performing Organization Address [facility] Co de Phone Number HEALTHCARE LAB [address] LAB [address] [place] [address] * Type and Screen (10/17/2024 7:19 AM EDT) Pathologist [facility] ABO/Rh A Negative 10/17/2024 7:04 AM EDT BLOOD BANK Antibody Screen Negative 10/17/2024 7:04 AM EDT BLOOD BANK Specimen Expiration 10/20/2024 23:59 10/17/2024 7:04 AM EDT BLOOD BANK Blood Venous blood specimen / Unknown Venipuncture / Unknown 10/17/2024 7:19 AM EDT 10/17/2024 7:28 AM EDT us Maria Fernanda Mccallum MD LAB BLOOD BANK TEST ORDERAB LES Final Result Performing Organization Address [facility] de Phone Number BLOOD BANK [address] * (ABNORMAL) POCT glucose meter (10/17/2024 6:44 AM EDT) Pathologist [facility] POCT Glucose 178(H) 74 - 99 mg/dL [...] 10/17/2024 6:49 AM EDT [facility] Electronic Assembly ID Hunter Burroughs 10/18/19 6:49 AM EDT [facility] Device ID [id number] 10/17/2024 6:49 AM EDT [facility] Specimen Type POC Capillary 10/17/2024 6:49 AM EDT HEALTHCARE LAB Blood Capillary blood specimen / Unknown 10/17/2024 6:44 AM EDT 10/17/2024 6:49 AM EDT Terrell Gautam MD LAB POINT OF CARE TE ST DOCKED DEVICE UNSOLICITED RESULTS Final Result HEALTHCARE LAB [address] [place] [address] documented in this encounter Visit Diagnoses Diagnosis [...] Kassie Mao, CHRISTIAN) 09 (Given - Provider: Kyela Chow) enoxaparin (Lovenox) syringe 40 mg (COMPLETED) [...] 1008 (New Bag - Provider: Emilia Alonso, CHRISTIAN) metoprolol tartrate (Lopressor) tablet 100 mg 100 [...] Oral, Every 6 hours PRN, Starting on Yaidra 10/17/24 at 1308, Until 10/19/24 at 1439, [...] RN) 0444 (Given - Provider: Rose De L aTorre RN)1109 (Given - Provider: Emilia Alonso RN) [...] documented as of this encounter Care Teams Head Of Physics Relationship Specialty Start Date End Date Asad Victor MD [address] [place] [id number] PCP - General 10/07/22 documented as of this encounter
--- OUTSIDE RECORDS SUMMARY | 2024-10-17 07:51 | XMS_ITS | Encounter Summary ---
Author Organization [facility] Address [address] [id number] Care Team Providers Care Lacer And Tier Name Role Phone Asad Victor MD Primary Care Provider + [phone] Reason for Visit * Auth/Cert (Routine) Specialty Diagnoses / Procedures Referred By Contac t Referred To Contact Diagnoses Critical limb ischemia of left lower extremity Critical limb ischemia of left lower extremity [I70.222] Procedures [place] VEIN BYPASS GRAFT,FEM-POP CREATION, BYPASS, ARTERIAL, FEMORAL TO POPLITEAL Terrell Gautam MD [address] [facility] [address] [place] [address] Phone: tel: fax: PAV A OPERATING ROOM [address] [place] [address] Phone: tel: Referral ID Status Reason Start Date Expiration Date Visits Re quested Visits Authorized [id number] 1 1 Encounter Details Date Type Department Care Team (Late st Contact Info) Description 10/17/2024 7:51 AM EDT Anesthesia Event PAV A OPERATING ROOM [address] [place] [phone] Maria Fernanda Mccallum MD [address] [place] [address] Anesthesia Record Procedure Summary Procedure [...] Hand; Site Prep: Chlorhexidine ; Local Anesth: [place]; Technique: Anatomical landmarks; Inserted by: CHRISTIAN Acuna; [...] drink first t dino in the morning (EYE-REHAB SERVICES AIDE) to steady your nerves or to get [...] * Anesthesia Postprocedure Evaluation - Jenna Lopez, PEDIATRIC CARE COORDINATOR - 10/17/2024 1:29 PM EDT Patient: Mono [...] by Swetha Villareal MD Staffing Performed: ISH PEDIATRIC CARE COORDINATOR: Jenna Lopez CRNA * Anesthesia Procedure Notes - Jenna Lopez CRNA - 10/17/2024 9:00 AM EDT Associated Order(s): Airway Airway Date/Time: 10/17/2024 8:03 AM Reason: elective Airway not difficult General Information and Staff Patient location during procedure: OR PEDIATRIC CARE COORDINATOR: Jenna Lopez CRNA Performed: PEDIATRIC CARE COORDINATOR Patient Condition Indications for airway management: anesthesia [...] T2DM, HLD, HTN, RLS who presented to [facility] with a large left common [...] CEA 2016 + 3rd degree AV block GEOLOGICAL SAMPLE TESTER-P placed 08/2023 for Wenkeback with 11 sec pause + HLD + HTN - controlled + PAD 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 CORONARY ANGIOPLASTY Left Coronary Angiography With Concomitant Left Heart Catheterization from [facility] ??? CORONARY ARTERY BYPASS GRAFT N/A 2018 [facility] [address] [place] [address] 11/26/2024 2:30 PM EDT Appointment [facility] [address] [place] [address] 11/26/2024 3:20 PM EDT Office Visit [facility] [address] [place] [address] Elisabet Schuster PA [address] [facility] [address] [place] [address] 11/29/2024 2:30 PM EDT Office Visit [facility] [address] [place] [address] Oscar Appiah MD [address] [facility] [address] [place] [address] documented as of this encounter Goals Goal [...] ANESTHESIA PLACEHOLDER Routine 10/17/2024 8:03 AM EDT [place] AN ELECTIVE ENDOTRACHEAL AIRWAY Routine 10/17/2024 8:03 [...] PLACEHOLDER (10/17/2024 8:25 AM EDT) Narrative Jenna oLpez CRNA - 10/17/2024 8:25 AM EDT Jenna [...] Performed by Swetha Villareal MD Staffing Performed: PEDIATRIC CARE COORDINATOR PEDIATRIC CARE COORDINATOR: Jenna Lopez CRNA Maria Fernanda Mccallum MD ANESTHESIA ORDERABLES Edite d Result - Final * [place] AN ELECTIVE ENDOTRACHEAL AIRWAY, PB ANESTHESIA PLACEHOLDER (10/17/2024 8:03 AM EDT) Narrative Jenna Lopez CRNA - 10/17/2024 8:03 AM EDT Jenna Lopez CRNA 10/17/2024 9:00 AM Airway Date/Time: 10/17/2024 8:03 AM Reason: elective Airway not difficult General Information and Staff Patient location during procedure: OR PEDIATRIC CARE COORDINATOR: Jenna Lopez CRNA Performed: ISH Patient Condition [...] Mccallum MD ANESTHESIA ORDERABLES Final Result * [facility] AN POCUS CARDIAC PROCDOC (10/17/2024 7:18 [...] Trace AR. The images were Saved in [employer]. The study was technically adequate. Comments: I [...] documented as of this encounter Care Teams Lacer And Tier Relationship Specialty Start Date End Date Asad Victor MD [address] [place] [address] PCP - General 10/07/22 documented as of this encounter
--- OUTSIDE RECORDS SUMMARY | 2024-10-17 08:00 | XMS_ITS | Encounter Summary ---
Author Organization [facility] Address [address] [place] [address] Care Team Providers Care Job Site Supervisor Name Role Phone Asad Victor MD Primary Care Provider + [phone] Reason for Visit * Auth/Cert (Routine) Specialty Diagnoses / Procedures Referred By Contac t Referred To Contact Diagnoses Critical limb ischemia of left lower extremity Critical limb ischemia of left lower extremity [I70.222] Procedures ID VEIN BYPASS GRAFT,FEM-POP CREATION, BYPASS, ARTERIAL, FEMORAL TO POPLITEAL Terrell Gautam MD [address] [address] Phone: tel: fax: [facility] [address] [place] [address] Phone: tel: Referral ID Status Reason Start Date Expiration Date Visits Re quested Visits Authorized [id number] 1 1 Encounter Details Date Type Department Care Team (Late st Contact Info) Description 10/17/2024 8:00 AM EDT - 10/17/2024 2:50 PM EDT Surgery [facility] [address] [place] [address] Terrell Gautam MD [address] [address] CREATION, BYPASS, ARTERIAL, FEMORAL TO POPLITEAL [99113 (CPT )] Surgery Details Date/Time Status Location [...] drink first t dino in the morning (EYE-WORKERS COMPENSATION CLAIMS SPECIALIST) to steady your nerves or to get rid of a hangover? 0 10/18/2021 CAGE Questionnaire Score 0 022 Utilities Answer Date Recorded In the past 12 months has th e [employer] gas, oil, or water 12Bis threatened to shut off services in your [...] provided Taken 10/17/20242107 by Jourdan Grimes II, guidance director Review/Management: medications reviewed Problem: Skin Injury Risk [...] Ongoing, Progressing Intervention: Promote Activity and Functional Munith Flowsheets (Taken 10/19/2024 1048) Self-Care Promotion: BADL personal objects within reach meal set-up provided * Yuni Ramires - Keyla Chow - 10/19/2024 11:45 AM EDT Images from the original note were not included. [id number] After Peripheral Artery Bypass Surgery: In the [...] home. Last Reviewed Date: 2023 00:00:00 ?? 1047-1962 [employer]. All rights reserved. This information is not intended as a substitute for professional medical care. Always follow your healthcare professional's instructions. * Progress Notes - Emelina Friend - 10/19/2024 11:44 AM EDT Case Management Adult Progress Note Bev Bobby 64 y.o. male CSN: [id number] Admission: 10/17/2024 6:21 AM Primary Problem: Critical [...] if any other needs arise. Emelina Friend PAPER PATTERN FOLDER, AD CLERK Social Work Case Management * Yuni Ramires - Keyla Chow - 10/19/2024 11:44 AM EDT Images from the original note were not included. [id number] Peripheral Artery Disease (PAD) Peripheral artery disease [...] cause. Last Reviewed Date: 2024 00:00:00 ?? 1441-1899 [employer]. All rights reserved. This information is not intended as a substitute for professional medical care. Always follow your healthcare professional's instructions. * Yuni Ramires - Keyla Chow - 10/19/2024 11:44 AM EDT Images from the original note were not included. [id number] Leg Artery Emergencies: Critical Limb Ischemia (CLI) [...] appointments. Last Reviewed Date: 2023 00:00:00 ?? 8546-3755 [employer]. All rights reserved. This information is not intended as a substitute for professional medical care. Always follow your healthcare professional's instructions. * Discharge Summary - Dandy Baltazar MD - 10/19/2024 11:31 AM EDT Hospitalization Admit Date/Time: 10/17/2024 6:21 AM Admitting Attending: Terrell Gautam Discharge Date: 10/19/24 Discharge Attending Physician: Nirmal Cueto MD PCP name and Address: Asad Victor MD (Inactive) [address] [facility] [address] Referring provider name and address: Timothy Marques PA [address] [place] [address] Chief Concern, Brief History of Present Illness, and Hospital Course Bev Bobby is an 64 y.o. 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 He [...] Your Medications These medications were sent to [facility] [place], [place] - [address] [facility] 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 He [...] provided Taken 10/17/20242107 by Jourdan Grimes II guidance director Review/Management: medications reviewed Problem: Skin Injury Risk [...] Ongoing, Progressing Intervention: Promote Activity and Functional Munith Flowsheets (Taken 10/19/2024 1048) Self-Care Promotion: BADL personal objects within reach meal set-up provided * Progress Notes - Femi Cole - 10/19/2024 9:08 AM EDT PHYSICAL THERAPY EVALUATION Patient Name Bev Bboby Session Date 10/19/2024 Total Treatment Time 23 [...] evaluation. PARTICIPANTS IN CARE Visitors Present No Application Development Project Manager (if applicable) PRESENTATION Oxygen Oxygen Therapy: [...] Level of Mobility Ambulatory- household only Mobility Munith Independent gait with device (rollator) History of [...] numbness in rodney) BED MOBILITY Level of Munith Physical/Non- physical Assist Adaptive Equipment Utilized Rolling/ Turning Scooting/ Bridging Modified independence (anteriorly to EOB) Bed rails Supine to Sit Modified Munith (to the right) (HOB flat) Bed rails Sit to Supine Interventions HOB flat to simulate home environment TRANSFERS Level of Munith Physical/Non- physical Assist Adaptive Equipment Utilized Sit [...] stable surfaces during transitions. AMBULATION Level of Munith Distance Adaptive Equipment Utilized Ambulation Standby assist, [...] Posture: Forward head, Rounded shoulders Level of Munith Balance Support Interventions Static Sit Independent Right [...] Assessments Standardized Assessments: AMPA 6-Clicks Mobility Assessment [facility] 6-Clicks Mobility Assessment Difficulty patient has [...] evaluation/session. Participants in Care Family/Caregiver Present: No Application Development Project Manager: Not Applicable Presentation Oxygen Therapy: None [...] Level of Mobility: Ambulatory- household only Mobility Munith: Independent gait with device (rollator) History of [...] Mobility Bed Mobility Exam: Scooting/Bridging Level of Munith: Modified independence (anteriorly to EOB) Assistive Device: Bed rails Bed Mobility Exam: Supine to Sit Level of Munith: Modified Munith (to the right) Physical/Nonphysical Assist: (HOB flat) Assistive Device: Bed rails Transfers Transfer Exam: Sit to stand Level of Munith: Stand-by assist Physical/Nonphysical Assist: Supervision, Verbal Cues, Minimal cues Assistive Device: Walker, rolling Transfer Exam: Stand to Sit Level of Munith: Stand-by assist Physical/Nonphysical Assist: Supervision, Verbal Cues, [...] Note Bev Bobby 64 y.o. male CSN: [id number] Admission: 10/17/2024 6:21 AM Primary Problem: Critical limb ischemia of left lower extremity Inventory Control/Shipping Receiving reviewed chart and spoke with patient to complete this Initial Case Management Assessment. PCP: Asad Victor MD (Inactive) - Dr. Palomo Preferred pharmacy is [facility] Emergency Contact: Extended Emergency Contact Information Primary Emergency Contact: Patti Hill Relation: Sister Application Development Project Manager needed? No Insurance: Primary Visit Coverage Payer Plan Sponsor Code Group Number Group Name [facility] MEDICARE [facility] MEDICARE REPLACEMENT [id number] Primary Visit Coverage Subscriber Subscriber ID Subscriber Name Subscriber [facility] Subscriber Address [id number] BEV BOBBY [id number] [place] [address] Secondary Visit Coverage Payer Plan Sponsor Code Group Number Group Name [employer] [facility] [facility] Secondary Visit Coverage Subscriber Subscriber ID Subscriber Name Subscriber [facility] Subscriber Address [id number] BEV BOBBY [id number] [place] [address] Patient information: Primary Caregiver: Self Daily Living Activities: Functional Status: Independent Living Arrangements: Alone Type of Residence: Private residence, Single Level [address] [place] [address] Current DME: Equipment Currently Used at Home: joy monterroso Income Information: Income Source: Retired Income/Expense Information: Income meets expenses Current Resources Utilized: Food [place] Housing Circumstances-Z Codes: Housing Circumstances (select all [...] Dialysis Services: None. Living Will/Advance Directive/Power of Practice Or Student Teacher /Guardian: Denied. Additional Comments: Patient is not medically ready for discharge. SW will continue to follow. Mariia Monterroso AD CLERK * Care Plan - Emilia Alonso RN [...] the original note were not included. [facility] Department of Surgery [...] supervised assistive device/personal items within [facility] fall prevention program maintained lighting [...] Agree with above assessment and evaluation from resident/SOLAR PROCESS ENGINEER. * Op Note - Terrell Gautam MD - 10/17/2024 8:52 AM EDT Operative Note Date: 10/17/24 Location: [facility] Name: Bev Bobby, : 1960, Diagnoses: Pre-op Diagnosis Critical limb ischemia of left lower extremity Common femoral artery pseudoaneurysm Post-op Diagnosis Critical limb ischemia of left lower extremity Common femoral artery pseudoaneurysm Procedure(s): Left common/superficial/profunda femoral thromboendarterectomy with bovine patch repair Left external iliac artery/WORK FROM HOME stent Attending Surgeon(s): * Terrell Gautam - Primary Webfed Offset Press Operator(s): * Luna Beckett MD - Resident [...] Necessity Reasons Recent surgery contiguous with urinary tract/PAYROLL DIRECTOR/colorectal 10/17/24 190 Output (mL) 50 mL 10/18/24 08 Implants Type Name Action Serial No. VASCUGUARD 8 X 8 - [id number] Implanted STENT ENDOPROSTHESIS VIABAHN 9FR [id number] - [id number] Implanted [id number] Specimen: Specimens ID Source Frozen? 1 Other [...] and distal control. We then proceeded with blfze-opm-rumh exposure of the popliteal artery. A medial [...] balloon dilated thestent with a 9 mm [place]. We closed the arteriotomy with a single [...] 10/17/2024 8:52 AM EDT Date: 10/17/24 Location: [facility] Name: Bev Bobby, : 1960, Diagnoses: Pre-op Diagnosis Critical limb ischemia of left lower extremity Common femoral artery pseudoaneurysm Post-op Diagnosis Critical limb ischemia of left lower extremity Common femoral artery pseudoaneurysm Procedure(s): Left common/superficial/profunda femoral thromboendarterectomy with bovine patch repair Left external iliac artery/WORK FROM HOME stent Attending Surgeon(s): * Terrell Gautam - Primary Webfed Offset Press Operator(s): * Luna Beckett MD - Resident - Assisting * Dandy Baltazar MD - Fellow Anesthesia: General ASA: III Blood Administration: Blood Product Administration History None Estimated Blood Loss: 300 mL Drains: Urethral Catheter Temperature probe 16 Fr. (Active) Implants Type Name Action Serial No. VASCUGUARD 8 X 8 - [id number] Implanted STENT ENDOPROSTHESIS VIABAHN 9FR [id number] - [id number] Implanted [id number] Specimen: Specimens ID Source Frozen? 1 Other [...] Here for surgery History Of Present Illness eBv Bobby is a 64 y.o. male presenting with no new complaints for scheduled surgery. He arrived after 6:30 to preop due to transportation issues. 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 He previouslyunderwent thrombin injection. He reports pain in his calves. He presents today for scheduled left lower extremity femoral to otyji-kpz-zddm popliteal bypass. Planned likely use PTFE. He [...] 16. Results Review {Vanishing Link Review Results :[id number] I have reviewed the latest lab and imaging results. Assessment & Plan Critical limb ischemia of left lower extremity Proceed with scheduled surgery left lower extremity femoral to vebwb-yps-fmen popliteal artery bypass graft. Extensive discussion had [...] Info) Description 11/26/2024 2:00 PM EDT Appointment [facility] [address] [place] [address] 11/26/2024 2:30 PM EDT Appointment [facility] [address] [place] [address] 11/26/2024 3:20 PM EDT Office Visit [facility] [address] [place] [address] Elisabet Schuster, GLENDA [address] [facility] [address] [place] [address] 11/29/2024 2:30 PM EDT Office Visit [facility] [address] [place] [address] Oscar Appiah MD [facility] [address] [place] [address] Pending Results Name Type Priority Associated Diagnoses [...] Comment 10/19/2024 11:42 AM EDT HEALTHCARE LAB Engineering Team Supervisor ID KamranJob 10/20/19 11:42 AM EDT HEALTHCARE LAB Device ID [id number] 10/19/2024 11:42 AM EDT HEALTHCARE LAB Specimen Type POC Capillary 10/19/2024 11:42 AM EDT [facility] Blood Capillary blood specimen / Unknown 10/19/2024 11:40 AM EDT 10/19/2024 11:42 AM EDT us Terrell Gautam MD LAB POINT OF CARE TE ST DOCKED DEVICE UNSOLICITED RESULTS Final Result Performing Organization Address City/State/[facility] Co de Phone Number HEALTHCARE LAB [address] [place] [address] * (ABNORMAL) Protime-INR (10/19/2024 8:25 AM EDT) [facility] Prothrombin Time 17.5(H) 12.0 - [...] BLOOD ORDERABLES Final Result Performing Organization Address [facility]/ZIP Co de Phone Number [facility] [address] [place] [address] * (ABNORMAL) Phosphorus (10/19/2024 8:25 AM EDT) Phosphorus, Plasma 2.2(L) 2.5 - 4.5 mg/dL 10/19/2024 9:12 AM EDT [facility] Blood Venous blood specimen / Unknown Venipuncture / Unknown 10/19/2024 8:25 AM EDT 10/19/2024 8:43 AM EDT us Nirmal Cueto MD LAB BLOOD ORDERABLES Final Result Performing Organization Address [facility] Co de Phone Number [facility] [address] [place] [address] * Magnesium (10/19/2024 8:25 AM EDT) Magnesium, Plasma 2.1 1.9 - 2.4 mg/dL 10/19/2024 9:12 AM EDT [facility] Blood Venous blood specimen / Unknown Venipuncture / Unknown 10/19/2024 8:25 AM EDT 10/19/2024 8:43 AM EDT Nirmal Cueto MD LAB BLOOD ORDERABLES Final Result Performing Organization Address [facility]/ZIP Co de Phone Number [facility] [address] [place] [address] * (ABNORMAL) Basic metabolic panel (10/19/2024 8:25 [...] Final Result [facility] [address] [place] [address] * (ABNORMAL) CBC W/O Differential (10/19/2024 8:25 [...] Final Result [facility] [address] [place] [address] * (ABNORMAL) POCT glucose meter (10/19/2024 7:35 AM EDT) [facility] POCT Glucose 187(H) 74 - [...] Comment 10/19/2024 7:37 AM EDT HEALTHCARE LAB Engineering Team Supervisor ID Job Andrew 10/20/19 7:37 AM EDT HEALTHCARE LAB Device ID [id number] 10/19/2024 7:37 AM EDT HEALTHCARE LAB Specimen Type POC Capillary 10/19/2024 7:37 AM EDT HEALTHCARE LAB Blood Capillary blood specimen / Unknown 10/19/2024 7:35 AM EDT 10/19/2024 7:37 AM EDT us Terrell aGutam MD LAB POINT OF CARE TE ST DOCKED DEVICE UNSOLICITED RESULTS Final Result Performing Organization Address City/State/[facility] Co de Phone Number HEALTHCARE LAB [address] [place] [address] * (ABNORMAL) POCT glucose meter (10/18/2024 7:22 PM EDT) [facility] POCT Glucose 178(H) 74 - [...] Comment 10/18/2024 7:24 PM EDT HEALTHCARE LAB Engineering Team Supervisor ID Mahesh Aldana 10/18/2024 7:24 PM EDT HEALTHCARE LAB Device ID [id number] 10/18/2024 7:24 PM EDT HEALTHCARE LAB Specimen Type POC Capillary 10/18/2024 7:24 PM EDT HEALTHCARE LAB Blood Capillary blood specimen / Unknown 10/18/2024 7:22 PM EDT 10/18/2024 7:24 PM EDT us Terrell Gautam MD LAB POINT OF CARE TE ST DOCKED DEVICE UNSOLICITED RESULTS Final Result Performing Organization Address [facility] Co de Phone Number HEALTHCARE LAB [address] [place] [address] * (ABNORMAL) POCT glucose meter (10/18/2024 6:07 [...] Comment 10/18/2024 6:09 PM EDT HEALTHCARE LAB Engineering Team Supervisor ID David Parks 10/18/2024 6:09 PM EDT HEALTHCARE LAB Device ID [id number] 10/18/2024 6:09 PM EDT HEALTHCARE LAB Specimen Type POC Capillary 10/18/2024 6:09 PM EDT [facility] Blood Capillary blood specimen / Unknown 10/18/2024 6:07 PM EDT 10/18/2024 6:09 PM EDT Terrell Gautam MD LAB POINT OF CARE TE ST DOCKED DEVICE UNSOLICITED RESULTS Final Result Performing Organization Address City/[facility] Co de Phone Number [facility] [address] [place] [address] * (ABNORMAL) POCT glucose meter (10/18/2024 11:56 [...] 10/21/2024 7:42 AM EDT [facility] Engineering Team Supervisor ID Venessa Marcano 10/21/2024 7:42 AM EDT HEALTHCARE LAB Device ID [id number] 10/21/2024 7:42 AM EDT HEALTHCARE LAB Specimen Type POC Capillary 10/21/2024 7:42 AM EDT HEALTHCARE LAB Blood Capillary blood specimen / Unknown 10/18/2024 11:56 AM EDT 10/21/2024 7:42 AM EDT us Terrell Gautam MD LAB POINT OF CARE TE ST DOCKED DEVICE UNSOLICITED RESULTS Final Result Performing Organization Address City/[facility] Co de Phone Number [facility] [address] [place] [address] * (ABNORMAL) POCT glucose meter (10/18/2024 9:24 AM EDT) [facility] POCT Glucose 322(H) 74 - [...] Comment 10/21/2024 7:42 AM EDT HEALTHCARE LAB Engineering Team Supervisor ID Emilia Alonso 7:42 AM EDT HEALTHCARE LAB Device ID [id number] 10/21/2024 7:42 AM EDT HEALTHCARE LAB Specimen Type POC Venous 10/21/2024 7:42 AM EDT HEALTHCARE LAB Blood Venous blood specimen / Unknown 10/18/2024 9:24 AM EDT 10/21/2024 7:42 AM EDT us Terrell Gautam MD LAB POINT OF CARE TE ST DOCKED DEVICE UNSOLICITED RESULTS Final Result Performing Organization Address City/[facility] Co de Phone Number [facility] [address] [place] [address] * (ABNORMAL) POCT glucose meter (10/18/2024 7:36 AM EDT) Pathologist [facility] POCT Glucose 215(H) 74 - 99 [...] Comment 10/18/2024 7:38 AM EDT HEALTHCARE LAB Engineering Team Supervisor ID Kizzy Godfrey 025 7:38 AM EDT HEALTHCARE LAB Device ID [id number] 10/18/2024 7:38 AM EDT [facility] Specimen Type POC Capillary 10/18/2024 7:38 AM EDT [facility] Blood Capillary blood specimen / Unknown 10/18/2024 7:36 AM EDT 10/18/2024 7:38 AM EDT us Terrell Gautam MD LAB POINT OF CARE TE ST DOCKED DEVICE UNSOLICITED RESULTS Final Result [facility]ARE LAB [address] [place] [address] * (ABNORMAL) CBC (10/18/2024 2:09 AM EDT) [facility] WBC Count 16.71(H) 3.70 - [...] Final Result [facility] [address] [place] [address] * (ABNORMAL) Basic metabolic panel (10/18/2024 2:09 [...] BLOOD ORDERABLES Final Result Performing Organization Address City/[facility]/ZIP Co de Phone Number [facility] [address] [place] [address] * (ABNORMAL) Magnesium (10/18/2024 2:09 AM EDT) Magnesium, Plasma 1.8(L) 1.9 - 2.4 mg/dL 10/18/2024 2:53 AM EDT [facility] Blood Venous blood specimen / Unknown Venipuncture / Unknown 10/18/2024 2:09 AM EDT 10/18/2024 2:25 AM EDT Nirmal Cueto MD LAB BLOOD ORDERABLES Final Result [facility] [address] [place] [address] * Phosphorus (10/18/2024 2:09 AM EDT) Phosphorus, Plasma 3.7 2.5 - 4.5 mg/dL 10/18/2024 2:53 AM EDT [facility] Blood Venous blood specimen / Unknown Venipuncture / Unknown 10/18/2024 2:09 AM EDT 10/18/2024 2:25 AM EDT Nirmal Cueto MD LAB BLOOD ORDERABLES Final Result Performing Organization Address [facility] Co de Phone Number [facility] [address] [place] [address] * (ABNORMAL) Protime-INR (10/18/2024 2:09 AM EDT) [...] of recurrent NM INR 2.5 to 3.5 Result [facility] Nirmal Cueto MD LAB BLOOD ORDERABLES Final Result Performing Organization Address [facility] Co de Phone Number [facility] [address] [place] [address] * (ABNORMAL) POCT glucose meter (10/18/2024 2:08 AM EDT) POCT Glucose 202(H) 74 - 99 mg/dL 10/18/2024 2:10 AM EDT [facility] Comment:Accuracy of a glucos e result [...] Comment 10/18/2024 2:10 AM EDT HEALTHCARE LAB Engineering Team Supervisor ID Jourdan Grimes II 10/18/2024 2:10 AM EDT HEALTHCARE LAB Device ID [id number] 10/18/2024 2:10 AM EDT HEALTHCARE LAB Specimen Type POC Capillary 10/18/2024 2:10 AM EDT HEALTHCARE LAB Blood Capillary blood specimen / Unknown 10/18/2024 2:08 AM EDT 10/18/2024 2:10 AM EDT us Terrell Gautam MD LAB POINT OF CARE TE ST DOCKED DEVICE UNSOLICITED RESULTS Final Result Performing Organization Address City/State/[facility] de Phone Number HEALTHCARE LAB [address] [place] [address] * (ABNORMAL) POCT glucose meter (10/17/2024 10:07 PM EDT) [facility] POCT Glucose 300(H) 74 - [...] Comment 10/17/2024 10:10 PM EDT HEALTHCARE LAB Engineering Team Supervisor ID Jourdan Grimes II 10/17/2024 10:10 PM EDT HEALTHCARE LAB Device ID [id number] 10/17/2024 10:10 PM EDT HEALTHCARE LAB Specimen Type POC Capillary 10/17/2024 10:10 PM EDT HEALTHCARE LAB Blood Capillary blood specimen / Unknown 10/17/2024 10:07 PM EDT 10/17/2024 10:10 PM EDT us Terrell Gautam MD LAB POINT OF CARE TE ST DOCKED DEVICE UNSOLICITED RESULTS Final Result [facility] [address] [place] [address] * (ABNORMAL) POCT glucose meter (10/17/2024 8:07 PM EDT) [facility] POCT Glucose 391(H) 74 - [...] 10/17/2024 8:10 PM EDT [facility] Engineering Team Supervisor ID Cornelio WALTERS Jourdan 10/17/2024 8:10 PM EDT [facility] Device ID [id number] 10/17/2024 8:10 PM EDT [facility] Specimen Type POC Capillary 10/17/2024 8:10 PM EDT [facility] Blood Capillary blood specimen / Unknown 10/17/2024 8:07 PM EDT 10/17/2024 8:10 PM EDT Terrell Gautam MD LAB POINT OF CARE TE ST DOCKED DEVICE UNSOLICITED RESULTS Final Result Performing Organization Address [facility] Co de Phone Number [facility] [address] [place] [address] * (ABNORMAL) POCT glucose meter (10/17/2024 4:01 PM EDT) [facility] POCT Glucose 249(H) 74 - [...] 10/17/2024 4:03 PM EDT [facility] Engineering Team Supervisor ID ChelsieKeisha patel 10/17/2024 4:03 PM EDT [facility] Device ID [id number] 10/17/2024 4:03 PM EDT [facility] Specimen Type POC Capillary 10/17/2024 4:03 PM EDT HEALTHCARE LAB Blood Capillary blood specimen / Unknown 10/17/2024 4:01 PM EDT 10/17/2024 4:03 PM EDT us Terrell Gautam MD LAB POINT OF CARE TE ST DOCKED DEVICE UNSOLICITED RESULTS Final Result Performing Organization Address [facility] Co de Phone Number [facility] [address] [place] [address] * (ABNORMAL) POCT glucose meter (10/17/2024 1:25 PM EDT) [facility] Signature POCT Glucose 225(H) 74 - [...] 10/17/2024 1:27 PM EDT [facility] Engineering Team Supervisor ID Kizzy Godfrey 025 1:27 PM EDT [facility] Device ID [id number] 10/17/2024 1:27 PM EDT HEALTHCARE LAB Specimen Type POC Capillary 10/17/2024 1:27 PM EDT HEALTHCARE LAB Blood Capillary blood specimen / Unknown 10/17/2024 1:25 PM EDT 10/17/2024 1:27 PM EDT us Terrell Gautam MD LAB POINT OF CARE TE ST DOCKED DEVICE UNSOLICITED RESULTS Final Result Performing Organization Address City/[facility] Co de Phone Number [facility] [address] [place] [address] * [place] Less than 1 Hour Intraoperative [...] Seconds 10/29/2024 7:28 AM EDT HEALTHCARE LAB Engineering Team Supervisor ID Donna Mcmillan 10/29/2024 7:28 AM EDT HEALTHCARE LAB ACT Device ID [id number] 10/29/2024 7:28 AM EDT [facility] Comment 10/29/2024 7:28 AM EDT WAR [...] UNSOLICITED RESULTS Final Result Performing Organization Address [facility] de Phone Number [facility] [address] LAB [address] [place] [address] * (ABNORMAL) Blood gas, arterial (10/17/2024 11:48 [...] 10/17/2024 11:53 AM EDT us Jenna Lopez SOLAR PROCESS ENGINEER LAB BLOOD ORDERABLES Final Re sult [facility] [address] [place] [address] * POCT ACT (10/17/2024 11:41 AM EDT) ACT+ (HIGH RANGE) 175 68 - 600 Seconds 10/29/2024 7:28 AM EDT [facility] Engineering Team Supervisor ID Oneyda Alicea 10/29/2024 7:28 AM EDT [facility] ACT Device ID [id number] 10/29/2024 7:28 AM EDT [facility] Comment 10/29/2024 7:28 AM EDT [facility] Comment: ACT performed by [...] UNSOLICITED RESULTS Final Result Performing Organization Address City/[facility] Co de Phone Number HEALTHCARE LAB [address] LAB [address] [place] [address] * POCT ACT (10/17/2024 11:11 AM EDT) [facility] Signature ACT+ (HIGH RANGE) 252 68 - 600 Seconds 10/29/2024 7:28 AM EDT [facility] Engineering Team Supervisor ID Donna Mcmillan 10/29/2024 7:28 AM EDT [facility] ACT Device ID [id number] 10/29/2024 7:28 AM EDT [facility] Comment 10/29/2024 7:28 AM EDT [facility] Comment: ACT performed by [...] UNSOLICITED RESULTS Final Result Performing Organization Address City/[facility]/ZIP Co de Phone Number [facility]ALTHCARE [facility] [address] LAB [address] [place] [address] * (ABNORMAL) Blood gas, arterial (10/17/2024 10:46 [...] 10:54 AM EDT us Jenna Munira Lopez SOLAR PROCESS ENGINEER LAB BLOOD ORDERABLES Final Re sult Performing Organization Address City/[facility]/ZIP Co de Phone Number [facility] [address] [place] [address] * POCT ACT (10/17/2024 10:37 AM EDT) ACT+ (HIGH RANGE) 206 68 - 600 Seconds 10/29/2024 7:28 AM EDT HEALTHCARE LAB Engineering Team Supervisor ID Donna Mcmillan 10/29/2024 7:28 AM EDT [facility] ACT Device ID [id number] 10/29/2024 7:28 AM EDT [facility] Comment 10/29/2024 7:28 AM EDT [facility] Comment: ACT performed by staff [...] UNSOLICITED RESULTS Final Result Performing Organization Address City/[facility] Co de Phone Number [facility] [address] [place] [address] * Surgical Pathology Exam (10/17/2024 10:27 AM EDT) Case Report Surgical Pathology Case: [id number] Authorizing Provider: Terrell Gautam MD Collected: 10/17/2024 1027 Ordering Location: [facility] A OPERATING ROOM Received: 10/17/2024 1325 [...] femoral plaque , is one aggregate of red-gabrile hard portions of plaque measuring 3.7 x 2.5 x 0.9 cm. The specimen is serially sectioned and senior customer service representative sections are submitted in cassette A1. Cold Time: <1m Kenia Dawit Yola 10/21/2024 10:16 AM EDT [facility] [...] grimaldo Result [facility] [address] [place] [address] * POCT ACT (10/17/2024 10:03 AM EDT) ACT+ (HIGH RANGE) 244 68 - 600 Seconds 10/29/2024 7:28 AM EDT [facility] Engineering Team Supervisor ID Donna Mcmillan 10/29/2024 7:28 AM EDT [facility] ACT Device ID [id number] 10/29/2024 7:28 AM EDT [facility] Comment 10/29/2024 7:28 AM EDT [facility] [...] DEVICE UNSOLICITED RESULTS Final Result [facility] [address] LAB [address] [place] [address] * (ABNORMAL) Blood gas, arterial (10/17/2024 9:45 [...] Re sult [facility] [address] [place] [address] * (ABNORMAL) Blood gas, arterial (10/17/2024 8:47 [...] Re sult [facility] [address] [place] [address] * POCT ACT (10/17/2024 8:46 AM EDT) ACT+ (HIGH RANGE) 101 68 - 600 Seconds 10/29/2024 7:28 AM EDT HEALTHCARE LAB Engineering Team Supervisor ID Donna Mcmillan 10/29/2024 7:28 AM EDT HEALTHCARE LAB ACT Device ID [id number] 10/29/2024 7:28 AM EDT HEALTHCARE LAB Comment [...] RESULTS Final Result [facility] [address] LAB [address] [place] [address] * Type and Screen (10/17/2024 7:19 AM [...] ORDERAB LES Final Result Performing Organization Address [facility] Co de Phone Number BLOOD BANK [address] [place] [address] * (ABNORMAL) POCT glucose meter (10/17/2024 6:44 AM EDT) [facility] POCT Glucose 178(H) 74 - [...] 10/17/2024 6:49 AM EDT [facility] Engineering Team Supervisor ID Hunter Burruoghs 10/18/19 6:49 AM EDT [facility] Device ID [id number] 10/17/2024 6:49 AM EDT HEALTHCARE LAB Specimen Type POC Capillary 10/17/2024 6:49 AM EDT [facility] Blood Capillary blood specimen / Unknown 10/17/2024 6:44 AM EDT 10/17/2024 6:49 AM EDT us Terrell Gautam MD LAB POINT OF CARE TE ST DOCKED DEVICE UNSOLICITED RESULTS Final Result [facility] [address] [place] [address] documented in this encounter Visit Diagnoses Diagnosis [...] OR irrigation Continuous PRN, Starting on Yadira 7/24/25 at 0831, Until Yadira 10/17/24 at 1317, [...] Until Discontinued, Routine 1204 (Given - Provider: Veenssa Marcano, CHRISTIAN)1813 (Not Given - Provider: Keyla [...] Starting on Yadira 10/17/24 at 0653, Until Mon10/18/24 at 1510, Routine, [...] documented as of this encounter Care Teams Job Site Supervisor Relationship Specialty Start Date End Date Asad Victor MD [address] [place] [address] PCP - General 10/07/22 documented as of this encounter
--- OUTSIDE RECORDS SUMMARY | 2024-11-05 21:45 | XMS_ITS | Encounter Summary ---
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 [facility] Device ID [id number] 11/13/2024 12:00 PM EDT [facility] Specimen Type POC Capillary 11/13/2024 12:00 PM EDT [facility] Blood Capillary blood specimen / Unknown 11/13/2024 11:58 AM EDT 11/13/2024 12:00 PM EDT Nathaly Nowak MD LAB POINT OF CARE TE ST DOCKED DEVICE UNSOLICITED RESULTS Final Result [facility] [address] [place] [address] * (ABNORMAL) POCT glucose meter (11/13/2024 8:23 AM EDT) Pathologist [facility] POCT Glucose 195(H) 74 - 99 mg/dL [...] Comment 11/13/2024 8:24 AM EDT [facility] Hose Inspector And Patcher ID Estefani Sheth 11/13/2024 8:24 AM EDT [facility]ARE LAB Device ID [id number] 11/13/2024 8:24 AM EDT [facility]ARE [facility] Specimen Type POC Capillary 11/13/2024 8:24 AM EDT [facility] Blood Capillary blood specimen / Unknown 11/13/2024 8:23 AM EDT 11/13/2024 8:24 AM EDT Nathaly Nowak MD LAB POINT OF CARE TE ST DOCKED DEVICE UNSOLICITED RESULTS Final Result Performing Organization Address [facility] Co de Phone Number [facility] [address] [place] [address] * (ABNORMAL) Phosphorus, Plasma (11/13/2024 6:37 AM EDT) Phosphorus, Plasma 1.7(L) 2.5 - 4.5 mg/dL 11/13/2024 7:16 AM EDT [facility] Blood Venous blood specimen / Unknown Venipuncture / Unknown 11/13/2024 6:37 AM EDT 11/13/2024 6:44 AM EDT Nathaly Nowak MD LAB BLOOD ORDERABLES Final Resu lt [facility] [address] [place] [address] * Magnesium, Plasma (11/13/2024 6:37 AM EDT) Magnesium, Plasma 2.0 1.9 - 2.4 mg/dL 11/13/2024 7:16 AM EDT [facility] Blood Venous blood specimen / Unknown Venipuncture / Unknown 11/13/2024 6:37 AM EDT 11/13/2024 6:44 AM EDT us Nathaly Nowak MD LAB BLOOD ORDERABLES Final Resu lt [facility] [address] [place] [address] * (ABNORMAL) CBC W/O Differential (11/13/2024 6:37 AM EDT) WBC Count 11.72(H) 3.70 - 10.30 10*3/uL LAB HEMATOLOGY METHOD 11/13/2024 6:51 AM EDT [facility] RBC Count 2.88(L) 4.60 - 6.10 10*6/uL LAB HEMATOLOGY METHOD 11/13/2024 6:51 AM EDT [facility] HGB 8.5(L) 13.7 - 17.5 g/dL LAB HEMATOLOGY METHOD 11/13/2024 6:51 AM EDT [facility] HCT 26.4(L) 40.0 - 51.0 % LAB HEMATOLOGY METHOD 11/13/2024 6:51 AM EDT [facility] Platelet Count 398(H) 155 - 369 10*3/uL LAB HEMATOLOGY METHOD 11/13/2024 6:51 AM EDT [facility] MCV 92 79 - 98 fL LAB HEMATOLOGY METHOD 11/13/2024 6:51 AM EDT [facility] MCH 29.5 26.0 - 32.0 pg LAB HEMATOLOGY METHOD 11/13/2024 6:51 AM EDT [facility] MCHC 32.2 30.7 - 35.5 g/dL LAB HEMATOLOGY METHOD 11/13/2024 6:51 AM EDT [facility] RDW 13.6 11.5 - 14.5 % LAB HEMATOLOGY METHOD 11/13/2024 6:51 AM EDT [facility] MPV 8.9 8.8 - 12.5 fL LAB HEMATOLOGY METHOD 11/13/2024 6:51 AM EDT [facility] nRBC 0.0 <=0.0 per 100 WBCs LAB HEMATOLOGY METHOD 11/13/2024 6:51 AM EDT [facility] Blood Venous blood specimen / Unknown Venipuncture / Unknown 11/13/2024 6:37 AM EDT 11/13/2024 6:44 AM EDT us Nathaly Nowak MD LAB BLOOD ORDERABLES Final Resu lt [facility] [address] [place] [address] * (ABNORMAL) Basic Metabolic Panel, Plasma (11/13/2024 6:37 AM EDT) Glucose, Plasma 200(H) 74 - 99 mg/dL 11/13/2024 7:16 AM EDT [facility] BUN, Plasma 10 8 - 23 mg/dL 11/13/2024 7:16 AM EDT [facility] Creatinine, Plasma 0.68(L) 0.70 - 1.20 mg/dL 11/13/2024 7:16 AM EDT [facility] BUN/Creatinine Ratio 15 11/13/2024 7:16 AM EDT [facility] Sodium, Plasma 135(L) 136 - 145 mmol/L 11/13/2024 7:16 AM EDT [facility] Potassium, Plasma 3.9 3.6 - 4.9 mmol/L 11/13/2024 7:16 AM EDT [facility] Chloride, Plasma 107 97 - 107 mmol/L 11/13/2024 7:16 AM EDT [facility] CO2, Plasma 21(L) 22 - 29 mmol/L 11/13/2024 7:16 AM EDT [facility] Anion Gap 7 6 - 16 mmol/L 11/13/2024 7:16 AM EDT [facility] Total Calcium, Plasma 8.1(L) 8.9 - 10.2 mg/dL 11/13/2024 7:16 AM EDT [facility] eGFRcr 103.2 mL/min/1.7 3m*2 11/13/2024 7:16 AM EDT [facility] Comment:Reported eGFRcr in m L/min/1.73m2 is based the CKD-EPI 2020 equation that does not use a race coefficient. Blood Venous blood specimen / Unknown Venipuncture / Unknown 11/13/2024 6:37 AM EDT 11/13/2024 6:44 AM EDT Nathaly Nowak MD LAB BLOOD ORDERABLES Final Resu lt Performing Organization Address City/[facility]/ZIP Co de Phone Number [facility] [address] [place] [address] * (ABNORMAL) POCT glucose meter (11/12/2024 8:27 [...] for testing. Comment 11/12/2024 8:29 PM EDT [facility] Hose Inspector And Patcher ID Nelda Gerber 11/13/19 8:29 PM EDT [facility] Device ID [id number] 11/12/2024 8:29 PM EDT [facility] Specimen Type POC Capillary 11/12/2024 8:29 PM EDT [facility] Blood Capillary blood specimen / Unknown 11/12/2024 8:27 PM EDT 11/12/2024 8:29 PM EDT Nathaly Nowak MD LAB POINT OF CARE TE ST DOCKED DEVICE UNSOLICITED RESULTS Final Result Performing Organization Address City/[facility] Co de Phone Number [facility]ARE [facility] [address] [place] [address] * (ABNORMAL) POCT glucose meter (11/12/2024 5:08 PM EDT) POCT Glucose 157(H) 74 - 99 mg/dL [...] Comment 11/12/2024 5:10 PM EDT [facility] Hose Inspector And Patcher ID Wade Feliciano Tobias 5:10 PM EDT [facility] LAB Device ID [id number] 11/12/2024 5:10 PM EDT [facility] Specimen Type POC Capillary 11/12/2024 5:10 PM EDT [facility] Blood Capillary blood specimen / Unknown 11/12/2024 5:08 PM EDT 11/12/2024 5:10 PM EDT Nathaly Nowak MD LAB POINT OF CARE TE ST DOCKED DEVICE UNSOLICITED RESULTS Final Result Performing Organization Address City/[facility]/ZIP Co de Phone Number [facility] [address] [place] [address] * (ABNORMAL) POCT glucose meter (11/12/2024 12:36 [...] Comment 11/12/2024 12:38 PM EDT [facility] Hose Inspector And Patcher ID Braden Wade Collado 12:38 PM EDT [facility] LAB Device ID [id number] 11/12/2024 12:38 PM EDT [facility] Specimen Type POC Capillary 11/12/2024 12:38 PM EDT [facility] Blood Capillary blood specimen / Unknown 11/12/2024 12:36 PM EDT 11/12/2024 12:38 PM EDT Nathaly Nowak MD LAB POINT OF CARE TE ST DOCKED DEVICE UNSOLICITED RESULTS Final Result Performing Organization Address City/[facility]/ZIP Co de Phone Number [facility] [address] [place] [address] * Clostridiodes (Clostridium) difficile PCR (11/12/2024 9:50 AM EDT) C difficile PCR toxin B gene DNA Result Not Detected Not Detected 11/12/2024 11:[address] [facility] Stool Rectum structure / Unknown Non-blood Collection / Unknown 11/12/2024 9:50 AM EDT 11/12/2024 10:04 AM EDT Narrative [facility] - 11/12/2024 11:54 AM EDT [...] Nathaly Nowak MD LAB MICROBIOLOGY - [facility] Final Result [facility] [address] [place] [address] * Comprehensive GI Panel by PCR (11/12/2024 9:50 AM EDT) Campylobacter PCR Result Not Detected Not Detected 11/12/2024 2:47 PM EDT [facility] Plesiomonas shigelloides PCR Result Not Detected Not Detected 11/12/2024 2:47 PM EDT [facility] Salmonella PCR Result Not Detected Not Detected 11/12/2024 2:47 PM EDT [facility] Vibrio species PCR Result Not Detected Not Detected 11/12/2024 2:47 PM EDT [facility] Vibrio cholerae PCR Result Not Detected Not Detected 11/12/2024 2:47 PM EDT [facility] Yersinia enterocolitica PCR Result Not Detected Not Detected 11/12/2024 2:47 PM EDT [facility] Enteroaggregative E. coli (EAEC) PCR Result Not Detected Not Detected 11/12/2024 2:47 PM EDT [facility] Enteropathogenic E. coli (EPEC) PCR Result Not Detected Not Detected 11/12/2024 2:47 PM EDT [facility] Enterotoxigenic E. coli (ETEC) lt/st PCR Result Not Detected Not Detected 11/12/2024 2:47 PM EDT [facility] Shiga-like Toxin-Producing E.coli (STEC) stx1/stx2 PCR Resu Not Detected Not Detected 11/12/2024 2:47 PM EDT [facility] E coli 0157 PCR Result Not Detected Not Detected 11/12/2024 2:47 PM EDT [facility] Shigella/Enteroinvas tam E. coli (EIEC) PCR Result Not Detected Not Detected 11/12/2024 2:47 PM EDT [facility] Cryptosporidium PCR Result Not Detected Not Detected 11/12/2024 2:47 PM EDT [facility] Cyclospora cayetanensis PCR Result Not Detected Not Detected 11/12/2024 2:47 PM EDT [facility] Entamoeba histolytica PCR Result Not Detected Not Detected 11/12/2024 2:47 PM EDT [facility] Giardia duodenalis (aka Giardia lamblia) PCR Result Not Detected Not Detected 11/12/2024 2:47 PM EDT [facility] Adenovirus F 40/41 PCR Result Not Detected Not Detected 11/12/2024 2:47 PM EDT [facility] Astrovirus PCR Result Not Detected Not Detected 11/12/2024 2:47 PM EDT [facility] Norovirus GI/GII PCR Result Not Detected Not Detected 11/12/2024 2:47 PM EDT [facility] Rotavirus A PCR Result Not Detected Not Detected 11/12/2024 2:47 PM EDT [facility] Sapovirus PCR Result Not Detected Not Detected 11/12/2024 2:47 PM EDT [facility] Stool Rectum structure / Unknown Non-blood Collection / Unknown 11/12/2024 9:50 AM EDT 11/12/2024 10:04 AM EDT [facility] - 11/12/2024 2:47 PM EDT [...] indicated. Nathaly Nowak MD LAB MICROBIOLOGY - [facility] Final Result Performing Organization Address [facility]/ZIP Co de Phone Number [facility] [address] [place] [address] * C-reactive protein (11/12/2024 9:48 AM EDT) [facility] CRP, Plasma <3.0 <=8.0 mg/L 11/12/2024 10:28 AM EDT [facility] Blood Venous blood specimen / Unknown Venipuncture / Unknown 11/12/2024 9:48 AM EDT 11/12/2024 9:59 AM EDT Narrative [facility] - 11/12/2024 10:28 AM EDT This CRP test is appropriate for assessment of infection, systemic inflammation and/or tissue injury. To assess cardiovascular disease risk order high sensitivity CRP (CRPH). Nathaly Nowak MD LAB BLOOD ORDERABLES Final Resu lt Performing Organization Address [facility] Co de Phone Number [facility] [address] [place] [address] * (ABNORMAL) POCT glucose meter (11/12/2024 8:20 AM EDT) [facility] POCT Glucose 138(H) 74 - 99 mg/dL 11/12/2024 8:21 AM EDT [facility] Comment:Accuracy of a glucos e [...] Comment 11/12/2024 8:21 AM EDT [facility] Hose Inspector And Patcher ID Wade Feliciano 8:21 AM EDT [facility]ALTH[facility] LAB Device ID [id number] 11/12/2024 8:21 AM EDT [facility] Specimen Type POC Capillary 11/12/2024 8:21 AM EDT [facility] Blood Capillary blood specimen / Unknown 11/12/2024 8:20 AM EDT 11/12/2024 8:21 AM EDT Nathaly Nowak MD LAB POINT OF CARE TE ST DOCKED DEVICE UNSOLICITED RESULTS Final Result Performing Organization Address [facility] Co de Phone Number [facility] [address] [place] [address] * (ABNORMAL) POCT glucose meter (11/11/2024 8:18 [...] Comment 11/11/2024 8:20 PM EDT [facility] Hose Inspector And Patcher ID Nelda Gerber 11/12/19 8:20 PM EDT [facility]ALTH[facility]ARE LAB Device ID [id number] 11/11/2024 8:20 PM EDT [facility] Specimen Type POC Capillary 11/11/2024 8:20 PM EDT [facility] Blood Capillary blood specimen / Unknown 11/11/2024 8:18 PM EDT 11/11/2024 8:20 PM EDT us Nathaly Nowak MD LAB POINT OF CARE TE ST DOCKED DEVICE UNSOLICITED RESULTS Final Result Performing Organization Address City/[facility]/ZIP Co de Phone Number [facility] [address] [place] [address] * (ABNORMAL) POCT glucose meter (11/11/2024 5:59 PM EDT) [facility] POCT Glucose 147(H) 74 - 99 mg/dL [...] Comment 11/11/2024 6:01 PM EDT [facility] Hose Inspector And Patcher ID Wade Feliciano 6:01 PM EDT [facility] LAB Device ID [id number] 11/11/2024 6:01 PM EDT [facility] Specimen Type POC Capillary 11/11/2024 6:01 PM EDT [facility] Blood Capillary blood specimen / Unknown 11/11/2024 5:59 PM EDT 11/11/2024 6:01 PM EDT Nathaly Nowak MD LAB POINT OF CARE TE ST DOCKED DEVICE UNSOLICITED RESULTS Final Result [facility] [address] [place] [address] * POCT glucose meter (11/11/2024 5:20 PM EDT) [facility] POCT Glucose 84 74 - 99 [...] Comment 11/11/2024 5:22 PM EDT [facility] Hose Inspector And Patcher ID Wade Feliciano 5:22 PM EDT [facility] Device ID [id number] 11/11/2024 5:22 PM EDT [facility] Specimen Type POC Capillary 11/11/2024 5:22 PM EDT [facility] Blood Capillary blood specimen / Unknown 11/11/2024 5:20 PM EDT 11/11/2024 5:22 PM EDT Nathaly Nowak MD LAB POINT OF CARE TE ST DOCKED DEVICE UNSOLICITED RESULTS Final Result [facility] [address] [place] [address] * AL NEGATIVE PRESSURE WOUND THERAPY DME [...] glucose meter (11/11/2024 12:08 PM EDT) Pathologist [facility] POCT Glucose 226(H) 74 - 99 mg/dL [...] Comment 11/11/2024 12:10 PM EDT [facility] Hose Inspector And Patcher ID Wade Feliciano Tobias 12:10 PM EDT [facility]ALTH[facility] LAB Device ID [id number] 11/11/2024 12:10 PM EDT [facility] Specimen Type POC Capillary 11/11/2024 12:10 PM EDT [facility] Blood Capillary blood specimen / Unknown 11/11/2024 12:08 PM EDT 11/11/2024 12:10 PM EDT Nathaly Nowak MD LAB POINT OF CARE TE ST DOCKED DEVICE UNSOLICITED RESULTS Final Result Performing Organization Address City/[facility] Co de Phone Number [facility] [address] [place] [address] * (ABNORMAL) POCT glucose meter (11/11/2024 9:08 AM EDT) [facility] POCT Glucose 162(H) 74 - 99 mg/dL 11/11/2024 9:09 AM EDT [facility] Comment:Accuracy of a [...] Comment 11/11/2024 9:09 AM EDT [facility] Hose Inspector And Patcher ID Wade Feliciano Tobias 9:09 AM EDT [facility] LAB Device ID [id number] 11/11/2024 9:09 AM EDT [facility] Specimen Type POC Capillary 11/11/2024 9:09 AM EDT [facility] Blood Capillary blood specimen / Unknown 11/11/2024 9:08 AM EDT 11/11/2024 9:09 AM EDT Nathaly Nowak MD LAB POINT OF CARE TE ST DOCKED DEVICE UNSOLICITED RESULTS Final Result Performing Organization Address City/[facility]/ZIP Co de Phone Number [facility] [address] [place] [address] * POCT glucose meter (11/11/2024 8:27 AM EDT) [facility] POCT Glucose 87 74 - 99 [...] Comment 11/11/2024 8:28 AM EDT [facility] Hose Inspector And Patcher ID Wade Feliciano 8:28 AM EDT [facility] Device ID [id number] 11/11/2024 8:28 AM EDT [facility] Specimen Type POC Capillary 11/11/2024 8:28 AM EDT [facility] Blood Capillary blood specimen / Unknown 11/11/2024 8:27 AM EDT 11/11/2024 8:28 AM EDT us Nathaly Nowak MD LAB POINT OF CARE TE ST DOCKED DEVICE UNSOLICITED RESULTS Final Result [facility] [address] [place] [address] * (ABNORMAL) Basic Metabolic Panel, Plasma (11/11/2024 1:12 AM EDT) [facility] Glucose, Plasma 122(H) 74 - 99 mg/dL 11/11/2024 1:12 AM EDT [facility] BUN, Plasma 10 8 - 23 mg/dL 11/11/2024 1:12 AM EDT [facility] Creatinine, Plasma 0.82 0.70 - 1.20 mg/dL 11/11/2024 1:12 AM EDT [facility] BUN/Creatinine Ratio 12 11/11/2024 1:12 AM EDT [facility] Sodium, Plasma 137 136 - 145 mmol/L 11/11/2024 1:12 AM EDT [facility] Potassium, Plasma 3.9 3.6 - 4.9 mmol/L 11/11/2024 1:12 AM EDT [facility] Chloride, Plasma 110(H) 97 - 107 mmol/L 11/11/2024 1:12 AM EDT [facility] CO2, Plasma 20(L) 22 - 29 mmol/L 11/11/2024 1:12 AM EDT [facility] Anion Gap 7 6 - 16 mmol/L 11/11/2024 1:12 AM EDT [facility] Total Calcium, Plasma 7.6(L) 8.9 - 10.2 mg/dL 11/11/2024 1:12 AM EDT [facility] eGFRcr 97.5 mL/min/1.7 3m*2 11/11/2024 1:12 AM EDT [facility] Comment:Reported eGFRcr in m L/min/1.73m2 is based the CKD-EPI 2020 equation that does not use a race coefficient. Blood Venous blood specimen / Unknown 11/11/2024 12:42 AM EDT us Nathaly Nowak MD LAB BLOOD ORDERABLES Final Resu lt [facility] [address] [place] [address] * (ABNORMAL) CBC W/O Differential (11/11/2024 12:56 AM EDT) WBC Count 11.83(H) 3.70 - 10.30 10*3/uL LAB HEMATOLOGY METHOD 11/11/2024 12:56 AM EDT [facility] RBC Count 2.97(L) 4.60 - 6.10 10*6/uL LAB HEMATOLOGY METHOD 11/11/2024 12:56 AM EDT [facility] HGB 8.9(L) 13.7 - 17.5 g/dL LAB HEMATOLOGY METHOD 11/11/2024 12:56 AM EDT [facility] HCT 27.2(L) 40.0 - 51.0 % LAB HEMATOLOGY METHOD 11/11/2024 12:56 AM EDT [facility] Platelet Count 444(H) 155 - 369 10*3/uL LAB HEMATOLOGY METHOD 11/11/2024 12:56 AM EDT [facility] MCV 92 79 - 98 fL LAB HEMATOLOGY METHOD 11/11/2024 12:56 AM EDT [facility] MCH 30.0 26.0 - 32.0 pg LAB HEMATOLOGY METHOD 11/11/2024 12:56 AM EDT [facility] MCHC 32.7 30.7 - 35.5 g/dL LAB HEMATOLOGY METHOD 11/11/2024 12:56 AM EDT [facility] RDW 13.3 11.5 - 14.5 % LAB HEMATOLOGY METHOD 11/11/2024 12:56 AM EDT [facility] MPV 9.0 8.8 - 12.5 fL LAB HEMATOLOGY METHOD 11/11/2024 12:56 AM EDT [facility] nRBC 0.0 <=0.0 per 100 WBCs LAB HEMATOLOGY METHOD 11/11/2024 12:56 AM EDT [facility] Blood Venous blood specimen / Unknown 11/11/2024 12:42 AM EDT us Nathaly Nowak MD LAB BLOOD ORDERABLES Final Resu lt [facility] [address] [place] [address] * (ABNORMAL) POCT glucose meter (11/10/2024 8:25 PM EDT) POCT Glucose 144(H) 74 - 99 mg/dL 11/10/2024 8:28 PM EDT [facility] Comment:Accuracy of [...] Comment 11/10/2024 8:28 PM EDT [facility] Hose Inspector And Patcher ID Nelda Gerber 11/11/19 8:28 PM EDT [facility]ALTH[facility]ARE LAB Device ID [id number] 11/10/2024 8:28 PM EDT [facility] Specimen Type POC Capillary 11/10/2024 8:28 PM EDT [facility] Blood Capillary blood specimen / Unknown 11/10/2024 8:25 PM EDT 11/10/2024 8:28 PM EDT Nathaly Nowak MD LAB POINT OF CARE TE ST DOCKED DEVICE UNSOLICITED RESULTS Final Result Performing Organization Address [facility] Co de Phone Number [facility] [address] [place] [address] * (ABNORMAL) POCT glucose meter (11/10/2024 4:45 [...] Comment 11/10/2024 4:47 PM EDT [facility] Hose Inspector And Patcher ID Esperanza Parks 11/10/2024 4:47 PM EDT HEALTH[facility]ARE LAB Device ID [id number] 11/10/2024 4:47 PM EDT [facility] Specimen Type POC Capillary 11/10/2024 4:47 PM EDT [facility] Blood Capillary blood specimen / Unknown 11/10/2024 4:45 PM EDT 11/10/2024 4:47 PM EDT Nathaly Nowak MD LAB POINT OF CARE TE ST DOCKED DEVICE UNSOLICITED RESULTS Final Result Performing Organization Address City/[facility] Co de Phone Number [facility] [address] [place] [address] * (ABNORMAL) POCT glucose meter (11/10/2024 12:13 [...] Comment 11/10/2024 12:14 PM EDT [facility] Hose Inspector And Patcher ID Esperanza Parks 11/10/2024 12:14 PM EDT [facility] LAB Device ID [id number] 11/10/2024 12:14 PM EDT [facility] Specimen Type POC Capillary 11/10/2024 12:14 PM EDT [facility] Blood Capillary blood specimen / Unknown 11/10/2024 12:13 PM EDT 11/10/2024 12:14 PM EDT us Nathaly Nowak MD LAB POINT OF CARE TE ST DOCKED DEVICE UNSOLICITED RESULTS Final Result Performing Organization Address City/[facility]/ZIP Co de Phone Number [facility] [address] [place] [address] * Vancomycin, Peak, Plasma Please draw ~2 hours after 0800 dose of vancomycin finishes infusing. Consider obtaining level via peripheral stick. If peripheral stick is not feasible, please ensure that line is flushed well prior to drawing level. Than... (11/10/2024 10:56 AM EDT) Vancomycin, Peak, Plasma 23.8 20.0 - 40.0 ug/mL 11/10/2024 11:25 AM EDT [facility] Blood Venous blood specimen / Unknown Venipuncture / Unknown 11/10/2024 10:56 AM EDT 11/10/2024 11:00 AM EDT Narrative [facility] - 11/10/2024 11:25 AM EDT Therapeutic Peak level: 20-40ug/mL Supra-therapeutic Peak level: >40 ug/mL us Abigail Seay MD LAB BLOOD ORDERABLES Final Res ult [facility] [address] [place] [address] * (ABNORMAL) POCT glucose meter (11/10/2024 8:03 [...] Comment 11/10/2024 8:04 AM EDT [facility] Hose Inspector And Patcher ID Esperanza Parks 11/10/2024 8:04 AM EDT [facility] Device ID [id number] 11/10/2024 8:04 AM EDT [facility] Specimen Type POC Capillary 11/10/2024 8:04 AM EDT [facility] Blood Capillary blood specimen / Unknown 11/10/2024 8:03 AM EDT 11/10/2024 8:04 AM EDT us Nathaly Nowak MD LAB POINT OF CARE TE ST DOCKED DEVICE UNSOLICITED RESULTS Final Result Performing Organization Address [facility] Co de Phone Number [facility] [address] [place] [phone] * Vancomycin, Trough, Plasma Please draw ~30 minutes prior to dose due at 0800 on 11/10. Please do NOThold dose awaiting level to return. Consider obtaining level via peripheral stick. If peripheral stick is not feasible, please ensure that line is... (11/10/2024 7:27 AM EDT) Vancomycin, Trough, Plasma 16.2 10.0 - 20.0 ug/mL 11/10/2024 8:24 AM EDT [facility] Blood Venous blood specimen / Unknown Venipuncture / Unknown 11/10/2024 7:27 AM EDT 11/10/2024 7:51 AM EDT Narrative [facility] - 11/10/2024 8:24 AM EDT Therapeutic Trough level: 10-20ug/mL Supra-therapeutic Trough level: >20 ug/mL us Abigail Seay MD LAB BLOOD ORDERABLES Final Res ult Performing Organization Address [facility]/ZIP Co de Phone Number [facility] [address] [place] [address] [place] [address] * (ABNORMAL) CBC and Differential (11/10/2024 12:31 AM EDT) WBC Count 10.80(H) 3.70 - 10.30 10*3/uL LAB HEMATOLOGY METHOD 11/10/2024 12:53 AM EDT [facility] RBC Count 3.06(L) 4.60 - 6.10 10*6/uL LAB HEMATOLOGY METHOD 11/10/2024 12:53 AM EDT [facility] HGB 9.1(L) 13.7 - 17.5 g/dL LAB HEMATOLOGY METHOD 11/10/2024 12:53 AM EDT [facility] HCT 28.0(L) 40.0 - 51.0 % LAB HEMATOLOGY METHOD 11/10/2024 12:53 AM EDT [facility] Platelet Count 501(H) 155 - 369 10*3/uL LAB HEMATOLOGY METHOD 11/10/2024 12:53 AM EDT [facility] MCV 92 79 - 98 fL LAB HEMATOLOGY METHOD 11/10/2024 12:53 AM EDT [facility] MCH 29.7 26.0 - 32.0 pg LAB HEMATOLOGY METHOD 11/10/2024 12:53 AM EDT [facility] MCHC 32.5 30.7 - 35.5 g/dL LAB HEMATOLOGY METHOD 11/10/2024 12:53 AM EDT [facility] RDW 13.2 11.5 - 14.5 % LAB HEMATOLOGY METHOD 11/10/2024 12:53 AM EDT [facility] MPV 8.8 8.8 - 12.5 fL LAB HEMATOLOGY METHOD 11/10/2024 12:53 AM EDT [facility] nRBC 0.0 <=0.0 per 100 WBCs LAB HEMATOLOGY METHOD 11/10/2024 12:53 AM EDT [facility] Differential Type Automated LAB HEMATOLOGY METHOD 11/10/2024 12:53 AM EDT [facility] Neutrophils % 77 % LAB HEMATOLOGY METHOD 11/10/2024 12:53 AM EDT [facility] Lymphocytes % 13 % LAB HEMATOLOGY METHOD 11/10/2024 12:53 AM EDT [facility] Monocytes % 8 % LAB HEMATOLOGY METHOD 11/10/2024 12:53 AM EDT [facility] Eosinophils % 1 % LAB HEMATOLOGY METHOD 11/10/2024 12:53 AM EDT [facility] Basophils % 0 % LAB HEMATOLOGY METHOD 11/10/2024 12:53 AM EDT [facility] Immature Granulocytes % 1 % LAB HEMATOLOGY METHOD 11/10/2024 12:53 AM EDT [facility] Neutrophils Absolute 8.32(H) 1.60 - 6.10 10*3/uL LAB HEMATOLOGY METHOD 11/10/2024 12:53 AM EDT [facility] Lymphocytes Absolute 1.40 1.20 - 3.90 10*3/uL LAB HEMATOLOGY METHOD 11/10/2024 12:53 AM EDT [facility] Monocytes Absolute 0.89 0.30 - 0.90 10*3/uL LAB HEMATOLOGY METHOD 11/10/2024 12:53 AM EDT [facility] Eosinophils Absolute 0.09 0.00 - 0.50 10*3/uL LAB HEMATOLOGY METHOD 11/10/2024 12:53 AM EDT [facility] Basophils Absolute 0.04 0.00 - 0.10 10*3/uL LAB HEMATOLOGY METHOD 11/10/2024 12:53 AM EDT [facility] Immature Granulocytes Absolute 0.06 0.00 - 0.06 10*3/uL LAB HEMATOLOGY METHOD 11/10/2024 12:53 AM EDT [facility] Blood Venous blood specimen / Unknown Venipuncture / Unknown 11/10/2024 12:31 AM EDT 11/10/2024 12:37 AM EDT Narrative [facility] - 11/10/2024 12:53 AM EDT Therapeutic decision making should be based on absolute values, rather than percentages. us Nathaly Nowak MD LAB BLOOD ORDERABLES Final Resu lt [facility] [address] [place] [address] * (ABNORMAL) Comprehensive Metabolic Panel, Plasma (11/10/2024 12:31 AM EDT) Glucose, Plasma 185(H) 74 - 99 mg/dL 11/10/2024 1:05 AM EDT [facility] BUN, Plasma 9 8 - 23 mg/dL 11/10/2024 1:05 AM EDT [facility] Creatinine, Plasma 0.72 0.70 - 1.20 mg/dL 11/10/2024 1:05 AM EDT [facility] BUN/Creatinine Ratio 13 11/10/2024 1:05 AM EDT [facility] Sodium, Plasma 135(L) 136 - 145 mmol/L 11/10/2024 1:05 AM EDT [facility] Potassium, Plasma 4.0 3.6 - 4.9 mmol/L 11/10/2024 1:05 AM EDT [facility] Chloride, Plasma 106 97 - 107 mmol/L 11/10/2024 1:05 AM EDT [facility] CO2, Plasma 19(L) 22 - 29 mmol/L 11/10/2024 1:05 AM EDT [facility] Anion Gap 10 6 - 16 mmol/L 11/10/2024 1:05 AM EDT [facility] Total Calcium, Plasma 7.8(L) 8.9 - 10.2 mg/dL 11/10/2024 1:05 AM EDT [facility] Total Protein 5.6(L) 6.3 - 7.9 g/dL 11/10/2024 1:05 AM EDT [facility] Albumin, Plasma 3.1(L) 3.5 - 5.2 g/dL 11/10/2024 1:05 AM EDT [facility] AST, Plasma 33 10 - 50 U/L 11/10/2024 1:05 AM EDT [facility] ALT, Plasma 25 10 - 50 U/L 11/10/2024 1:05 AM EDT [facility] Alkaline Phosphatase, Plasma 108 40 - 115 U/L 11/10/2024 1:05 AM EDT [facility] Total Bilirubin, Plasma <0.2(L) 0.2 - 1.1 mg/dL 11/10/2024 1:05 AM EDT [facility] eGFRcr 101.4 mL/min/1.7 3m*2 11/10/2024 1:05 AM EDT [facility] Comment:Reported eGFRcr in m L/min/1.73m2 is based the CKD-EPI 2020 equation that does not use a race coefficient. Blood Venous blood specimen / Unknown Venipuncture / Unknown 11/10/2024 12:31 AM EDT 11/10/2024 12:37 AM EDT Nathaly Nowak MD LAB BLOOD ORDERABLES Final Resu lt [facility] [address] [place] [address] * (ABNORMAL) POCT glucose meter (11/09/2024 8:04 [...] Comment 11/09/2024 8:06 PM EDT [facility] Hose Inspector And Patcher ID Maximiliano Hansen II 11/09/2024 8:06 PM EDT [facility] Device ID [id number] 11/09/2024 8:06 PM EDT [facility] Specimen Type POC Capillary 11/09/2024 8:06 PM EDT [facility] Blood Capillary blood specimen / Unknown 11/09/2024 8:04 PM EDT 11/09/2024 8:06 PM EDT us Nathaly Nowak MD LAB POINT OF CARE TE ST DOCKED DEVICE UNSOLICITED RESULTS Final Result Performing Organization Address City/[facility]/ZIP Co de Phone Number [facility] [address] [place] [address] * (ABNORMAL) POCT glucose meter (11/09/2024 4:36 [...] Comment 11/09/2024 4:38 PM EDT [facility] Hose Inspector And Patcher ID Kristian Sosa 11/09/2024 4:38 PM EDT [facility] Device ID [id number] 11/09/2024 4:38 PM EDT [facility] Specimen Type POC Capillary 11/09/2024 4:38 PM EDT [facility] Blood Capillary blood specimen / Unknown 11/09/2024 4:36 PM EDT 11/09/2024 4:38 PM EDT Nathaly Nowak MD LAB POINT OF CARE TE ST DOCKED DEVICE UNSOLICITED RESULTS Final Result Performing Organization Address City/State/[facility] Co de Phone Number [facility] [address] [place] [address] * PICC SINGLE LUMEN ([employer] LINK) (11/09/2024 1:11 PM EDT) Narrative Estefani Barraza RN - 11/09/2024 1:11 PM EDT Estefani Barraza RN 11/09/2024 1:12 PM Insert PICC line Date/Time: 11/09/2024 1:11 PM Performed by: Estefani Barraza RN Authorized by: Nathaly Nowak MD Mica Protocol: Verbal consent obtained?: Yes Written consent [...] selection rationale: Left pacemaker Catheter Lot #: [id number] Catheter web database developer: Catheter placed: Single lumen Catheter size: 4 [...] POCT glucose meter (11/09/2024 11:50 AM EDT) [facility] POCT Glucose 127(H) 74 - 99 [...] Comment 11/09/2024 11:51 AM EDT [facility] Hose Inspector And Patcher ID Kristian Sosa 11/09/2024 11:51 AM EDT [facility] Device ID [id number] 11/09/2024 11:51 AM EDT [facility] Specimen Type POC Capillary 11/09/2024 11:51 AM EDT [facility] Blood Capillary blood specimen / Unknown 11/09/2024 11:50 AM EDT 11/09/2024 11:51 AM EDT Nathaly Nowak MD LAB POINT OF CARE TE ST DOCKED DEVICE UNSOLICITED RESULTS Final Result Performing Organization Address City/[facility] Co de Phone Number [facility] [address] [place] [address] * (ABNORMAL) POCT glucose meter (11/09/2024 8:14 AM EDT) [facility] POCT Glucose 153(H) 74 - 99 mg/dL 11/09/2024 8:15 AM EDT [facility] Comment:Accuracy of [...] Comment 11/09/2024 8:15 AM EDT [facility] Hose Inspector And Patcher ID Kristian Sosa 11/09/2024 8:15 AM EDT [facility] Device ID [id number] 11/09/2024 8:15 AM EDT [facility] Specimen Type POC Capillary 11/09/2024 8:15 AM EDT [facility] Blood Capillary blood specimen / Unknown 11/09/2024 8:14 AM EDT 11/09/2024 8:15 AM EDT Nathaly Nowak MD LAB POINT OF CARE TE ST DOCKED DEVICE UNSOLICITED RESULTS Final Result Performing Organization Address [facility] Co de Phone Number [facility] [address] [place] [address] * (ABNORMAL) CBC and Differential (11/09/2024 4:15 AM EDT) [facility] WBC Count 10.27 3.70 - 10.30 10*3/uL LAB HEMATOLOGY METHOD 11/09/2024 4:26 AM EDT [facility] RBC Count 3.14(L) 4.60 - 6.10 10*6/uL LAB HEMATOLOGY METHOD 11/09/2024 4:26 AM EDT [facility] HGB 9.2(L) 13.7 - 17.5 g/dL LAB HEMATOLOGY METHOD 11/09/2024 4:26 AM EDT [facility] HCT 28.3(L) 40.0 - 51.0 % LAB HEMATOLOGY METHOD 11/09/2024 4:26 AM EDT [facility] Platelet Count 468(H) 155 - 369 10*3/uL LAB HEMATOLOGY METHOD 11/09/2024 4:26 AM EDT [facility] MCV 90 79 - 98 fL LAB HEMATOLOGY METHOD 11/09/2024 4:26 AM EDT [facility] MCH 29.3 26.0 - 32.0 pg LAB HEMATOLOGY METHOD 11/09/2024 4:26 AM EDT [facility] MCHC 32.5 30.7 - 35.5 g/dL LAB HEMATOLOGY METHOD 11/09/2024 4:26 AM EDT [facility] RDW 13.1 11.5 - 14.5 % LAB HEMATOLOGY METHOD 11/09/2024 4:26 AM EDT [facility] MPV 8.7(L) 8.8 - 12.5 fL LAB HEMATOLOGY METHOD 11/09/2024 4:26 AM EDT [facility] nRBC 0.0 <=0.0 per 100 WBCs LAB HEMATOLOGY METHOD 11/09/2024 4:26 AM EDT [facility] Differential Type Automated LAB HEMATOLOGY METHOD 11/09/2024 4:26 AM EDT [facility] Neutrophils % 77 % LAB HEMATOLOGY METHOD 11/09/2024 4:26 AM EDT [facility] Lymphocytes % 13 % LAB HEMATOLOGY METHOD 11/09/2024 4:26 AM EDT [facility] Monocytes % 8 % LAB HEMATOLOGY METHOD 11/09/2024 4:26 AM EDT [facility] Eosinophils % 1 % LAB HEMATOLOGY METHOD 11/09/2024 4:26 AM EDT [facility] Basophils % 0 % LAB HEMATOLOGY METHOD 11/09/2024 4:26 AM EDT [facility] Immature Granulocytes % 1 % LAB HEMATOLOGY METHOD 11/09/2024 4:26 AM EDT [facility] Neutrophils Absolute 7.97(H) 1.60 - 6.10 10*3/uL LAB HEMATOLOGY METHOD 11/09/2024 4:26 AM EDT [facility] Lymphocytes Absolute 1.32 1.20 - 3.90 10*3/uL LAB HEMATOLOGY METHOD 11/09/2024 4:26 AM EDT [facility] Monocytes Absolute 0.83 0.30 - 0.90 10*3/uL LAB HEMATOLOGY METHOD 11/09/2024 4:26 AM EDT [facility] Eosinophils Absolute 0.07 0.00 - 0.50 10*3/uL LAB HEMATOLOGY METHOD 11/09/2024 4:26 AM EDT [facility] Basophils Absolute 0.03 0.00 - 0.10 10*3/uL LAB HEMATOLOGY METHOD 11/09/2024 4:26 AM EDT [facility] Immature Granulocytes Absolute 0.05 0.00 - 0.06 10*3/uL LAB HEMATOLOGY METHOD 11/09/2024 4:26 AM EDT [facility] Blood Venous blood specimen / Unknown Venipuncture / Unknown 11/09/2024 4:15 AM EDT 11/09/2024 4:18 AM EDT Narrative [facility] - 11/09/2024 4:26 AM EDT Therapeutic decision making should be based on absolute values, rather than percentages. us Nathaly Nowak MD LAB BLOOD ORDERABLES Final Resu lt [facility] [address] [place] [address] * (ABNORMAL) Comprehensive Metabolic Panel, Plasma (11/09/2024 4:15 AM EDT) Glucose, Plasma 171(H) 74 - 99 mg/dL 11/09/2024 4:47 AM EDT [facility] BUN, Plasma 9 8 - 23 mg/dL 11/09/2024 4:47 AM EDT [facility] Creatinine, Plasma 0.67(L) 0.70 - 1.20 mg/dL 11/09/2024 4:47 AM EDT [facility] BUN/Creatinine Ratio 13 11/09/2024 4:47 AM EDT [facility] Sodium, Plasma 134(L) 136 - 145 mmol/L 11/09/2024 4:47 AM EDT [facility] Potassium, Plasma 4.1 3.6 - 4.9 mmol/L 11/09/2024 4:47 AM EDT [facility] Chloride, Plasma 104 97 - 107 mmol/L 11/09/2024 4:47 AM EDT [facility] CO2, Plasma 21(L) 22 - 29 mmol/L 11/09/2024 4:47 AM EDT [facility] Anion Gap 9 6 - 16 mmol/L 11/09/2024 4:47 AM EDT [facility] Total Calcium, Plasma 8.4(L) 8.9 - 10.2 mg/dL 11/09/2024 4:47 AM EDT [facility] Total Protein 5.8(L) 6.3 - 7.9 g/dL 11/09/2024 4:47 AM EDT [facility] Albumin, Plasma 3.2(L) 3.5 - 5.2 g/dL 11/09/2024 4:47 AM EDT [facility] AST, Plasma 18 10 - 50 U/L 11/09/2024 4:47 AM EDT [facility] ALT, Plasma 17 10 - 50 U/L 11/09/2024 4:47 AM EDT [facility] Alkaline Phosphatase, Plasma 110 40 - 115 U/L 11/09/2024 4:47 AM EDT [facility] Total Bilirubin, Plasma <0.2(L) 0.2 - 1.1 mg/dL 11/09/2024 4:47 AM EDT [facility] eGFRcr 103.6 mL/min/1.7 3m*2 11/09/2024 4:47 AM EDT [facility] Comment:Reported eGFRcr in m L/min/1.73m2 is based the CKD-EPI 2020 equation that does not use a race coefficient. Blood Venous blood specimen / Unknown Venipuncture / Unknown 11/09/2024 4:15 AM EDT 11/09/2024 4:18 AM EDT us Nathaly Nowak MD LAB BLOOD ORDERABLES Final Resu lt [facility] [address] [place] [address] * (ABNORMAL) POCT glucose meter (11/09/2024 3:30 AM EDT) POCT Glucose 160(H) 74 - 99 mg/dL 11/09/2024 3:31 AM EDT [facility] Comment:Accuracy of a [...] Comment 11/09/2024 3:31 AM EDT [facility] Hose Inspector And Patcher ID Maximiliano Hansen II 11/09/2024 3:31 AM EDT [facility] Device ID [id number] 11/09/2024 3:31 AM EDT [facility] Specimen Type POC Capillary 11/09/2024 3:31 AM EDT [facility] Blood Capillary blood specimen / Unknown 11/09/2024 3:30 AM EDT 11/09/2024 3:31 AM EDT Nathaly Nowak MD LAB POINT OF CARE TE ST DOCKED DEVICE UNSOLICITED RESULTS Final Result Performing Organization Address City/State/[facility] Co de Phone Number [facility] [address] [place] [address] * (ABNORMAL) POCT glucose meter (11/08/2024 7:21 PM EDT) [facility] POCT Glucose 292(H) 74 - 99 [...] Comment 11/08/2024 7:22 PM EDT [facility] Hose Inspector And Patcher ID Maximiliano Hansen II 11/08/2024 7:22 PM EDT [facility] Device ID [id number] 11/08/2024 7:22 PM EDT [facility] Specimen Type POC Capillary 11/08/2024 7:22 PM EDT [facility] Blood Capillary blood specimen / Unknown 11/08/2024 7:21 PM EDT 11/08/2024 7:22 PM EDT Nathaly Nowak MD LAB POINT OF CARE TE ST DOCKED DEVICE UNSOLICITED RESULTS Final Result Performing Organization Address [facility] Co de Phone Number [facility] [address] [place] [address] * (ABNORMAL) POCT glucose meter (11/08/2024 5:12 PM EDT) [facility] POCT Glucose 178(H) 74 - 99 [...] Comment 11/08/2024 5:14 PM EDT [facility] Hose Inspector And Patcher ID Estefani Sheth 11/08/2024 5:14 PM EDT [facility] Device ID [id number] 11/08/2024 5:14 PM EDT [facility] Specimen Type POC Capillary 11/08/2024 5:14 PM EDT [facility] Blood Capillary blood specimen / Unknown 11/08/2024 5:12 PM EDT 11/08/2024 5:14 PM EDT Nathaly Nowak MD LAB POINT OF CARE TE ST DOCKED DEVICE UNSOLICITED RESULTS Final Result Performing Organization Address City/[facility] Co de Phone Number [facility] [address] [place] [address] * (ABNORMAL) POCT glucose meter (11/08/2024 12:03 PM EDT) [facility] POCT Glucose 191(H) 74 - 99 mg/dL [...] Comment 11/08/2024 12:05 PM EDT [facility] Hose Inspector And Patcher ID Estefani Sheth 11/08/2024 12:05 PM EDT [facility] Device ID [id number] 11/08/2024 12:05 PM EDT [facility] Specimen Type POC Capillary 11/08/2024 12:05 PM EDT [facility] Blood Capillary blood specimen / Unknown 11/08/2024 12:03 PM EDT 11/08/2024 12:05 PM EDT Nathaly Nowak MD LAB POINT OF CARE TE ST DOCKED DEVICE UNSOLICITED RESULTS Final Result Performing Organization Address [facility] Co de Phone Number [facility] [address] [place] [address] * Vancomycin, Peak, Plasma Please draw ~2 hours after 11/08 0600 dose of vancomycin finishes infusing.Consider obtaining level via peripheral stick. If peripheral stick is not feasible, please ensure that line is flushed well prior to drawing level.... (11/08/2024 9:24 AM EDT) Vancomycin, Peak, Plasma 29.1 20.0 - 40.0 ug/mL 11/08/2024 10:31 AM EDT [facility] Blood Venous blood specimen / Unknown Venipuncture / Unknown 11/08/2024 9:24 AM EDT 11/08/2024 9:47 AM EDT Narrative [facility] - 11/08/2024 10:31 AM EDT Therapeutic Peak level: 20-40ug/mL Supra-therapeutic Peak level: >40 ug/mL us Nathaly Nowak MD LAB BLOOD ORDERABLES Final Resu lt Performing Organization Address [facility] Co de Phone Number [facility] [address] [place] [address] * (ABNORMAL) POCT glucose meter (11/08/2024 8:00 [...] Comment 11/08/2024 8:01 AM EDT [facility] Hose Inspector And Patcher ID Estefani Sheth 11/08/2024 8:01 AM EDT [facility] Device ID [id number] 11/08/2024 8:01 AM EDT [facility] Specimen Type POC Capillary 11/08/2024 8:01 AM EDT [facility] Blood Capillary blood specimen / Unknown 11/08/2024 8:00 AM EDT 11/08/2024 8:01 AM EDT us Nathaly Nowak MD LAB POINT OF CARE TE ST DOCKED DEVICE UNSOLICITED RESULTS Final Result Performing Organization Address City/State/[facility] Co de Phone Number [facility] [address] [place] [address] * (ABNORMAL) CBC and Differential (11/08/2024 4:39 AM EDT) [facility] WBC Count 9.18 3.70 - 10.30 10*3/uL LAB HEMATOLOGY METHOD 11/08/2024 4:58 AM EDT [facility] RBC Count 3.11(L) 4.60 - 6.10 10*6/uL LAB HEMATOLOGY METHOD 11/08/2024 4:58 AM EDT [facility] HGB 9.2(L) 13.7 - 17.5 g/dL LAB HEMATOLOGY METHOD 11/08/2024 4:58 AM EDT [facility] HCT 28.9(L) 40.0 - 51.0 % LAB HEMATOLOGY METHOD 11/08/2024 4:58 AM EDT [facility] Platelet Count 485(H) 155 - 369 10*3/uL LAB HEMATOLOGY METHOD 11/08/2024 4:58 AM EDT [facility] MCV 93 79 - 98 fL LAB HEMATOLOGY METHOD 11/08/2024 4:58 AM EDT [facility] MCH 29.6 26.0 - 32.0 pg LAB HEMATOLOGY METHOD 11/08/2024 4:58 AM EDT [facility] MCHC 31.8 30.7 - 35.5 g/dL LAB HEMATOLOGY METHOD 11/08/2024 4:58 AM EDT [facility] RDW 13.0 11.5 - 14.5 % LAB HEMATOLOGY METHOD 11/08/2024 4:58 AM EDT [facility] MPV 8.8 8.8 - 12.5 fL LAB HEMATOLOGY METHOD 11/08/2024 4:58 AM EDT [facility] nRBC 0.0 <=0.0 per 100 WBCs LAB HEMATOLOGY METHOD 11/08/2024 4:58 AM EDT [facility] Differential Type Automated LAB HEMATOLOGY METHOD 11/08/2024 4:58 AM EDT [facility] Neutrophils % 69 % LAB HEMATOLOGY METHOD 11/08/2024 4:58 AM EDT [facility] Lymphocytes % 17 % LAB HEMATOLOGY METHOD 11/08/2024 4:58 AM EDT [facility] Monocytes % 10 % LAB HEMATOLOGY METHOD 11/08/2024 4:58 AM EDT [facility] Eosinophils % 2 % LAB HEMATOLOGY METHOD 11/08/2024 4:58 AM EDT [facility] Basophils % 1 % LAB HEMATOLOGY METHOD 11/08/2024 4:58 AM EDT [facility] Immature Granulocytes % 1 % LAB HEMATOLOGY METHOD 11/08/2024 4:58 AM EDT [facility] Neutrophils Absolute 6.40(H) 1.60 - 6.10 10*3/uL LAB HEMATOLOGY METHOD 11/08/2024 4:58 AM EDT [facility] Lymphocytes Absolute 1.59 1.20 - 3.90 10*3/uL LAB HEMATOLOGY METHOD 11/08/2024 4:58 AM EDT [facility] Monocytes Absolute 0.87 0.30 - 0.90 10*3/uL LAB HEMATOLOGY METHOD 11/08/2024 4:58 AM EDT [facility] Eosinophils Absolute 0.22 0.00 - 0.50 10*3/uL LAB HEMATOLOGY METHOD 11/08/2024 4:58 AM EDT [facility] Basophils Absolute 0.05 0.00 - 0.10 10*3/uL LAB HEMATOLOGY METHOD 11/08/2024 4:58 AM EDT [facility] Immature Granulocytes Absolute 0.05 0.00 - 0.06 10*3/uL LAB HEMATOLOGY METHOD 11/08/2024 4:58 AM EDT [facility] Blood Venous blood specimen / Unknown Venipuncture / Unknown 11/08/2024 4:39 AM EDT 11/08/2024 4:49 AM EDT Narrative [facility] - 11/08/2024 4:58 AM EDT Therapeutic decision making should be based on absolute values, rather than percentages. us Nathaly Nowak MD LAB BLOOD ORDERABLES Final Resu lt [facility] [address] [place] [address] * (ABNORMAL) Comprehensive Metabolic Panel, Plasma (11/08/2024 4:39 AM EDT) Glucose, Plasma 255(H) 74 - 99 mg/dL 11/08/2024 5:20 AM EDT [facility] BUN, Plasma 10 8 - 23 mg/dL 11/08/2024 5:20 AM EDT [facility] Creatinine, Plasma 0.75 0.70 - 1.20 mg/dL 11/08/2024 5:20 AM EDT [facility] BUN/Creatinine Ratio 13 11/08/2024 5:20 AM EDT [facility] Sodium, Plasma 133(L) 136 - 145 mmol/L 11/08/2024 5:20 AM EDT [facility] Potassium, Plasma 5.2(H) 3.6 - 4.9 mmol/L 11/08/2024 5:20 AM EDT [facility] Chloride, Plasma 105 97 - 107 mmol/L 11/08/2024 5:20 AM EDT [facility] CO2, Plasma 20(L) 22 - 29 mmol/L 11/08/2024 5:20 AM EDT [facility] Anion Gap 8 6 - 16 mmol/L 11/08/2024 5:20 AM EDT [facility] Total Calcium, Plasma 7.7(L) 8.9 - 10.2 mg/dL 11/08/2024 5:20 AM EDT [facility] Total Protein 5.6(L) 6.3 - 7.9 g/dL 11/08/2024 5:20 AM EDT [facility] Albumin, Plasma 2.8(L) 3.5 - 5.2 g/dL 11/08/2024 5:20 AM EDT [facility] AST, Plasma 20 10 - 50 U/L 11/08/2024 5:20 AM EDT [facility] Comment:Hemolyzed, result ma y be falsely increased. ALT, Plasma 14 10 - 50 U/L 11/08/2024 5:20 AM EDT [facility] Alkaline Phosphatase, Plasma 119(H) 40 - 115 U/L 11/08/2024 5:20 AM EDT [facility] Total Bilirubin, Plasma <0.2(L) 0.2 - 1.1 mg/dL 11/08/2024 5:20 AM EDT [facility] eGFRcr 100.1 mL/min/1.7 3m*2 11/08/2024 5:20 AM EDT [facility] Comment:Reported eGFRcr in m L/min/1.73m2 is based the CKD-EPI 2020 equation that does not use a race coefficient. Blood Venous blood specimen / Unknown Venipuncture / Unknown 11/08/2024 4:39 AM EDT 11/08/2024 4:43 AM EDT us Nathaly Nowak MD LAB BLOOD ORDERABLES Final Resu lt [facility] [address] [place] [address] * Vancomycin, Trough, Plasma Please draw ~30 minutes prior to dose due at 0600 on 11/08. Please do NOThold dose awaiting level to return. Consider obtaining level via peripheral stick. If peripheral stick is not feasible, please ensure that line is... (11/08/2024 4:39 AM EDT) [facility] Vancomycin, Trough, Plasma 18.7 10.0 - 20.0 ug/mL 11/08/2024 5:22 AM EDT [facility] Blood Venous blood specimen / Unknown Venipuncture / Unknown 11/08/2024 4:39 AM EDT 11/08/2024 4:43 AM EDT Narrative [facility] - 11/08/2024 5:22 AM EDT Therapeutic Trough level: 10-20ug/mL Supra-therapeutic Trough level: >20 ug/mL us Nathaly Nowak MD LAB BLOOD ORDERABLES Final Resu lt Performing Organization Address [facility]/ZIP Co de Phone Number [facility] [address] [place] [address] * (ABNORMAL) POCT glucose meter (11/07/2024 7:26 PM EDT) [facility] POCT Glucose 172(H) 74 - 99 mg/dL 11/07/2024 7:28 PM EDT [facility] Comment:Accuracy of a [...] Comment 11/07/2024 7:28 PM EDT [facility] Hose Inspector And Patcher ID Maximiliano Hansen II 11/07/2024 7:28 PM EDT [facility] Device ID [id number] 11/07/2024 7:28 PM EDT [facility] Specimen Type POC Capillary 11/07/2024 7:28 PM EDT [facility] Blood Capillary blood specimen / Unknown 11/07/2024 7:26 PM EDT 11/07/2024 7:28 PM EDT us Nathaly Nowak MD LAB POINT OF CARE TE ST DOCKED DEVICE UNSOLICITED RESULTS Final Result Performing Organization Address City/[facility]/ZIP Co de Phone Number [facility] [address] [place] [address] * (ABNORMAL) POCT glucose meter (11/07/2024 5:51 PM EDT) Pathologist [facility] POCT Glucose 183(H) 74 - 99 mg/dL [...] Comment 11/07/2024 5:52 PM EDT [facility] Hose Inspector And Patcher ID Brigitte Castellon 11/07/2024 5:52 PM EDT [facility] Device ID [id number] 11/07/2024 5:52 PM EDT [facility] Specimen Type POC Capillary 11/07/2024 5:52 PM EDT [facility] Blood Capillary blood specimen / Unknown 11/07/2024 5:51 PM EDT 11/07/2024 5:52 PM EDT us Nathaly Nowak MD LAB POINT OF CARE TE ST DOCKED DEVICE UNSOLICITED RESULTS Final Result Performing Organization Address City/State/[facility] Co de Phone Number [facility] [address] [place] [address] * (ABNORMAL) POCT glucose meter (11/07/2024 4:47 PM EDT) [facility] POCT Glucose 162(H) 74 - 99 [...] 11/07/2024 4:48 PM EDT [facility] Hose Inspector And Patcher ID Estefani Sheth 11/07/2024 4:48 PM EDT [facility] Device ID [id number] 11/07/2024 4:48 PM EDT [facility] Specimen Type POC Capillary 11/07/2024 4:48 PM EDT [facility] Blood Capillary blood specimen / Unknown 11/07/2024 4:47 PM EDT 11/07/2024 4:48 PM EDT Nathaly Nowak MD LAB POINT OF CARE TE ST DOCKED DEVICE UNSOLICITED RESULTS Final Result Performing Organization Address City/[facility]/ZIP Co de Phone Number [facility] [address] [place] [address] * (ABNORMAL) POCT glucose meter (11/07/2024 12:22 PM EDT) POCT Glucose 172(H) 74 - [...] for testing. Comment 11/07/2024 12:24 PM EDT [facility] Hose Inspector And Patcher ID Estefani Sheth 11/07/2024 12:24 PM EDT [facility]ALTH[facility]ARE LAB Device ID [id number] 11/07/2024 12:24 PM EDT [facility] Specimen Type POC Capillary 11/07/2024 12:24 PM EDT [facility] Blood Capillary blood specimen / Unknown 11/07/2024 12:22 PM EDT 11/07/2024 12:24 PM EDT Nathaly Nowak MD LAB POINT OF CARE TE ST DOCKED DEVICE UNSOLICITED RESULTS Final Result Performing Organization Address City/[facility]/ZIP Co de Phone Number [facility] [address] [place] [address] * (ABNORMAL) CBC and Differential (11/07/2024 11:37 AM EDT) WBC Count 9.96 3.70 - 10.30 10*3/uL LAB HEMATOLOGY METHOD 11/07/2024 12:33 PM EDT [facility] RBC Count 2.81(L) 4.60 - 6.10 10*6/uL LAB HEMATOLOGY METHOD 11/07/2024 12:33 PM EDT [facility] HGB 8.5(L) 13.7 - 17.5 g/dL LAB HEMATOLOGY METHOD 11/07/2024 12:33 PM EDT [facility] HCT 26.0(L) 40.0 - 51.0 % LAB HEMATOLOGY METHOD 11/07/2024 12:33 PM EDT [facility] Platelet Count 524(H) 155 - 369 10*3/uL LAB HEMATOLOGY METHOD 11/07/2024 12:33 PM EDT [facility] MCV 93 79 - 98 fL LAB HEMATOLOGY METHOD 11/07/2024 12:33 PM EDT [facility] MCH 30.2 26.0 - 32.0 pg LAB HEMATOLOGY METHOD 11/07/2024 12:33 PM EDT [facility] MCHC 32.7 30.7 - 35.5 g/dL LAB HEMATOLOGY METHOD 11/07/2024 12:33 PM EDT [facility] RDW 13.1 11.5 - 14.5 % LAB HEMATOLOGY METHOD 11/07/2024 12:33 PM EDT [facility] MPV 9.0 8.8 - 12.5 fL LAB HEMATOLOGY METHOD 11/07/2024 12:33 PM EDT [facility] nRBC 0.0 <=0.0 per 100 WBCs LAB HEMATOLOGY METHOD 11/07/2024 12:33 PM EDT [facility] Differential Type Automated LAB HEMATOLOGY METHOD 11/07/2024 12:33 PM EDT [facility] Neutrophils % 72 % LAB HEMATOLOGY METHOD 11/07/2024 12:33 PM EDT [facility] Lymphocytes % 17 % LAB HEMATOLOGY METHOD 11/07/2024 12:33 PM EDT [facility] Monocytes % 9 % LAB HEMATOLOGY METHOD 11/07/2024 12:33 PM EDT [facility] Eosinophils % 1 % LAB HEMATOLOGY METHOD 11/07/2024 12:33 PM EDT [facility] Basophils % 1 % LAB HEMATOLOGY METHOD 11/07/2024 12:33 PM EDT [facility] Immature Granulocytes % 0 % LAB HEMATOLOGY METHOD 11/07/2024 12:33 PM EDT [facility] Neutrophils Absolute 7.19(H) 1.60 - 6.10 10*3/uL LAB HEMATOLOGY METHOD 11/07/2024 12:33 PM EDT [facility] Lymphocytes Absolute 1.66 1.20 - 3.90 10*3/uL LAB HEMATOLOGY METHOD 11/07/2024 12:33 PM EDT [facility] Monocytes Absolute 0.88 0.30 - 0.90 10*3/uL LAB HEMATOLOGY METHOD 11/07/2024 12:33 PM EDT [facility] Eosinophils Absolute 0.14 0.00 - 0.50 10*3/uL LAB HEMATOLOGY METHOD 11/07/2024 12:33 PM EDT [facility] Basophils Absolute 0.05 0.00 - 0.10 10*3/uL LAB HEMATOLOGY METHOD 11/07/2024 12:33 PM EDT [facility] Immature Granulocytes Absolute 0.04 0.00 - 0.06 10*3/uL LAB HEMATOLOGY METHOD 11/07/2024 12:33 PM EDT [facility] Blood Venous blood specimen / Unknown Venipuncture / Unknown 11/07/2024 11:37 AM EDT 11/07/2024 12:24 PM EDT Narrative [facility] - 11/07/2024 12:33 PM EDT Therapeutic decision making should be based on absolute values, rather than percentages. us Nathaly Nowak MD LAB BLOOD ORDERABLES Final Resu lt [facility] [address] [place] [address] * (ABNORMAL) Comprehensive Metabolic Panel, Plasma (11/07/2024 11:37 AM EDT) Glucose, Plasma 173(H) 74 - 99 mg/dL 11/07/2024 1:31 PM EDT [facility] BUN, Plasma 13 8 - 23 mg/dL 11/07/2024 1:31 PM EDT [facility] Creatinine, Plasma 0.92 0.70 - 1.20 mg/dL 11/07/2024 1:31 PM EDT [facility] BUN/Creatinine Ratio 14 11/07/2024 1:31 PM EDT [facility] Sodium, Plasma 136 136 - 145 mmol/L 11/07/2024 1:31 PM EDT [facility] Potassium, Plasma 4.0 3.6 - 4.9 mmol/L 11/07/2024 1:31 PM EDT [facility] Chloride, Plasma 104 97 - 107 mmol/L 11/07/2024 1:31 PM EDT [facility] CO2, Plasma 23 22 - 29 mmol/L 11/07/2024 1:31 PM EDT [facility] Anion Gap 9 6 - 16 mmol/L 11/07/2024 1:31 PM EDT [facility] Total Calcium, Plasma 7.8(L) 8.9 - 10.2 mg/dL 11/07/2024 1:31 PM EDT [facility] Total Protein 5.7(L) 6.3 - 7.9 g/dL 11/07/2024 1:31 PM EDT [facility] Albumin, Plasma 3.0(L) 3.5 - 5.2 g/dL 11/07/2024 1:31 PM EDT [facility] AST, Plasma 15 10 - 50 U/L 11/07/2024 1:31 PM EDT [facility] ALT, Plasma 16 10 - 50 U/L 11/07/2024 1:31 PM EDT [facility] Alkaline Phosphatase, Plasma 119(H) 40 - 115 U/L 11/07/2024 1:31 PM EDT [facility] Total Bilirubin, Plasma <0.2(L) 0.2 - 1.1 mg/dL 11/07/2024 1:31 PM EDT [facility] eGFRcr 92.3 mL/min/1.7 3m*2 11/07/2024 1:31 PM EDT [facility] Comment:Reported eGFRcr in m L/min/1.73m2 is based the CKD-EPI 2020 equation that does not use a race coefficient. Blood Venous blood specimen / Unknown Venipuncture / Unknown 11/07/2024 11:37 AM EDT 11/07/2024 12:23 PM EDT Nathaly Nowak MD LAB BLOOD ORDERABLES Final Resu lt Performing Organization Address City/[facility]/ZIP Co de Phone Number [facility] [address] [place] [address] * Type and Screen (11/07/2024 11:37 AM [...] ORDERABLES F inal Result Performing Organization Address [facility] de Phone Number BLOOD BANK [address] [place] [address] * (ABNORMAL) POCT glucose meter (11/07/2024 10:34 AM EDT) [facility] POCT Glucose 199(H) 74 - 99 [...] Comment 11/07/2024 10:36 AM EDT [facility] Hose Inspector And Patcher ID Joy Iraheta 11/07/2024 10:36 AM EDT [facility] LAB Device ID [id number] 11/07/2024 10:36 AM EDT [facility] Specimen Type POC Capillary 11/07/2024 10:36 AM EDT [facility] Blood Capillary blood specimen / Unknown 11/07/2024 10:34 AM EDT 11/07/2024 10:36 AM EDT Nathaly Nowak MD LAB POINT OF CARE TE ST DOCKED DEVICE UNSOLICITED RESULTS Final Result Performing Organization Address City/[facility] Co de Phone Number [facility] [address] [place] [address] * (ABNORMAL) POCT glucose meter (11/07/2024 9:34 [...] for testing. Comment 11/07/2024 9:36 AM EDT [facility] Hose Inspector And Patcher ID Brigitte Castellon 11/07/2024 9:36 AM EDT [facility] Device ID [id number] 11/07/2024 9:36 AM EDT [facility] Specimen Type POC Capillary 11/07/2024 9:36 AM EDT [facility] Blood Capillary blood specimen / Unknown 11/07/2024 9:34 AM EDT 11/07/2024 9:36 AM EDT Nathaly Nowak MD LAB POINT OF CARE TE ST DOCKED DEVICE UNSOLICITED RESULTS Final Result Performing Organization Address City/[facility] Co de Phone Number [facility] [address] [place] [address] * (ABNORMAL) POCT glucose meter (11/07/2024 8:20 AM EDT) POCT Glucose 137(H) 74 - 99 mg/dL [...] Comment 11/07/2024 8:22 AM EDT [facility] Hose Inspector And Patcher ID Estefani Sheth 11/07/2024 8:22 AM EDT [facility] LAB Device ID [id number] 11/07/2024 8:22 AM EDT [facility] Specimen Type POC Capillary 11/07/2024 8:22 AM EDT [facility] Blood Capillary blood specimen / Unknown 11/07/2024 8:20 AM EDT 11/07/2024 8:22 AM EDT us Nathaly Nowak MD LAB POINT OF CARE TE ST DOCKED DEVICE UNSOLICITED RESULTS Final Result Performing Organization Address City/[facility]/ZIP Co de Phone Number [facility] [address] [place] [address] * (ABNORMAL) POCT glucose meter (11/07/2024 7:21 [...] Comment 11/07/2024 7:22 AM EDT [facility] Hose Inspector And Patcher ID Brigitte Castellon 11/07/2024 7:22 AM EDT [facility] LAB Device ID [id number] 11/07/2024 7:22 AM EDT [facility] Specimen Type POC Capillary 11/07/2024 7:22 AM EDT [facility] Blood Capillary blood specimen / Unknown 11/07/2024 7:21 AM EDT 11/07/2024 7:22 AM EDT us Nathaly Nowak MD LAB POINT OF CARE TE ST DOCKED DEVICE UNSOLICITED RESULTS Final Result Performing Organization Address City/[facility]/ZIP Co de Phone Number [facility] [address] [place] [address] * (ABNORMAL) POCT glucose meter (11/07/2024 6:25 [...] Comment 11/07/2024 6:27 AM EDT [facility] Hose Inspector And Patcher ID Nelda Gerber 11/08/19 6:27 AM EDT [facility] Device ID [id number] 11/07/2024 6:27 AM EDT [facility] Specimen Type POC Capillary 11/07/2024 6:27 AM EDT [facility] Blood Capillary blood specimen / Unknown 11/07/2024 6:25 AM EDT 11/07/2024 6:27 AM EDT us Nathaly Nowak MD LAB POINT OF CARE TE ST DOCKED DEVICE UNSOLICITED RESULTS Final Result Performing Organization Address City/State/[facility] Co de Phone Number [facility] [address] [place] [address] * (ABNORMAL) POCT glucose meter (11/07/2024 5:03 AM EDT) Pathologist [facility] POCT Glucose 139(H) 74 - 99 mg/dL [...] 11/07/2024 5:08 AM EDT [facility] Hose Inspector And Patcher ID Nelda Gerber 11/08/19 5:08 AM EDT [facility] Device ID [id number] 11/07/2024 5:08 AM EDT [facility]ALTH[facility] Specimen Type POC Capillary 11/07/2024 5:08 AM EDT [facility] Blood Capillary blood specimen / Unknown 11/07/2024 5:03 AM EDT 11/07/2024 5:08 AM EDT Nathaly Nowak MD LAB POINT OF CARE TE ST DOCKED DEVICE UNSOLICITED RESULTS Final Result Performing Organization Address City/[facility]/ZIP Co de Phone Number [facility] [address] [place] [address] * (ABNORMAL) POCT glucose meter (11/07/2024 4:16 [...] Comment 11/07/2024 4:18 AM EDT [facility] Hose Inspector And Patcher ID Nelda Gerber 11/08/19 4:18 AM EDT [facility]ALTH[facility]ARE LAB Device ID [id number] 11/07/2024 4:18 AM EDT [facility] Specimen Type POC Capillary 11/07/2024 4:18 AM EDT [facility] Blood Capillary blood specimen / Unknown 11/07/2024 4:16 AM EDT 11/07/2024 4:18 AM EDT us Nathaly Nowak MD LAB POINT OF CARE TE ST DOCKED DEVICE UNSOLICITED RESULTS Final Result [facility] [address] [place] [address] * (ABNORMAL) POCT glucose meter (11/07/2024 3:21 [...] Comment 11/07/2024 3:23 AM EDT [facility] Hose Inspector And Patcher ID Nelda Gerber 11/08/19 3:23 AM EDT [facility] LAB Device ID [id number] 11/07/2024 3:23 AM EDT [facility] Specimen Type POC Capillary 11/07/2024 3:23 AM EDT [facility] Blood Capillary blood specimen / Unknown 11/07/2024 3:21 AM EDT 11/07/2024 3:23 AM EDT us Nathaly Nowak MD LAB POINT OF CARE TE ST DOCKED DEVICE UNSOLICITED RESULTS Final Result Performing Organization Address City/State/[facility] Co de Phone Number [facility] [address] [place] [address] * (ABNORMAL) POCT glucose meter (11/07/2024 2:10 [...] Comment 11/07/2024 2:12 AM EDT [facility] Hose Inspector And Patcher ID Nelda Gerber 11/08/19 2:12 AM EDT [facility] Device ID [id number] 11/07/2024 2:12 AM EDT [facility] Specimen Type POC Capillary 11/07/2024 2:12 AM EDT [facility] Blood Capillary blood specimen / Unknown 11/07/2024 2:10 AM EDT 11/07/2024 2:12 AM EDT us Nathaly Nowak MD LAB POINT OF CARE TE ST DOCKED DEVICE UNSOLICITED RESULTS Final Result [facility] [address] [place] [address] * (ABNORMAL) POCT glucose meter (11/07/2024 1:08 [...] for testing. Comment 11/07/2024 1:10 AM EDT [facility] Hose Inspector And Patcher ID Nelda Gerber 11/08/19 1:10 AM EDT [facility] Device ID [id number] 11/07/2024 1:10 AM EDT [facility] Specimen Type POC Capillary 11/07/2024 1:10 AM EDT [facility] Blood Capillary blood specimen / Unknown 11/07/2024 1:08 AM EDT 11/07/2024 1:10 AM EDT Nathaly Nowak MD LAB POINT OF CARE TE ST DOCKED DEVICE UNSOLICITED RESULTS Final Result Performing Organization Address City/[facility]/ZIP Co de Phone Number [facility] [address] [place] [address] * (ABNORMAL) POCT glucose meter (11/07/2024 12:10 [...] Comment 11/07/2024 12:13 AM EDT [facility] Hose Inspector And Patcher ID Nelda Gerber 11/08/19 25 12:13 AM EDT [facility]ALTH[facility]ARE LAB Device ID [id number] 11/07/2024 12:13 AM EDT [facility] Specimen Type POC Capillary 11/07/2024 12:13 AM EDT [facility] Blood Capillary blood specimen / Unknown 11/07/2024 12:10 AM EDT 11/07/2024 12:13 AM EDT Nathaly Nowak MD LAB POINT OF CARE TE ST DOCKED DEVICE UNSOLICITED RESULTS Final Result Performing Organization Address City/[facility]/ZIP Co de Phone Number [facility] [address] [place] [address] * (ABNORMAL) POCT glucose meter (11/06/2024 11:14 PM EDT) [facility] POCT Glucose 71(L) 74 - 99 [...] Comment 11/06/2024 11:16 PM EDT [facility] Hose Inspector And Patcher ID Nelda Gerber 11/07/19 11:16 PM EDT [facility] LAB Device ID [id number] 11/06/2024 11:16 PM EDT [facility] Specimen Type POC Capillary 11/06/2024 11:16 PM EDT [facility] Blood Capillary blood specimen / Unknown 11/06/2024 11:14 PM EDT 11/06/2024 11:16 PM EDT Nathaly Nowak MD LAB POINT OF CARE TE ST DOCKED DEVICE UNSOLICITED RESULTS Final Result Performing Organization Address City/[facility]/ZIP Co de Phone Number [facility] [address] [place] [address] * (ABNORMAL) POCT glucose meter (11/06/2024 10:07 PM EDT) [facility] POCT Glucose 140(H) 74 - 99 [...] Comment 11/06/2024 10:09 PM EDT [facility] Hose Inspector And Patcher ID Nelda Gerber 11/07/19 10:09 PM EDT [facility]ALTH[facility]ARE LAB Device ID [id number] 11/06/2024 10:09 PM EDT [facility] Specimen Type POC Capillary 11/06/2024 10:09 PM EDT [facility] Blood Capillary blood specimen / Unknown 11/06/2024 10:07 PM EDT 11/06/2024 10:09 PM EDT us Nathaly Nowak MD LAB POINT OF CARE TE ST DOCKED DEVICE UNSOLICITED RESULTS Final Result Performing Organization Address City/State/[facility] Co de Phone Number [facility] [address] [place] [address] * (ABNORMAL) POCT glucose meter (11/06/2024 8:22 PM EDT) [facility] POCT Glucose 256(H) 74 - 99 [...] 11/06/2024 8:25 PM EDT [facility] Hose Inspector And Patcher ID Nelda Gerber 11/07/19 8:25 PM EDT HEALTHCARE LAB Device ID [id number] 11/06/2024 8:25 PM EDT [facility] Specimen Type POC Capillary 11/06/2024 8:25 PM EDT [facility] Blood Capillary blood specimen / Unknown 11/06/2024 8:22 PM EDT 11/06/2024 8:25 PM EDT Nathaly Nowak MD LAB POINT OF CARE TE ST DOCKED DEVICE UNSOLICITED RESULTS Final Result Performing Organization Address City/[facility]/ZIP Co de Phone Number [facility] [address] [place] [address] * (ABNORMAL) POCT glucose meter (11/06/2024 7:31 [...] Comment 11/06/2024 7:32 PM EDT [facility] Hose Inspector And Patcher ID Nelda Gerber 11/07/19 7:32 PM EDT [facility]ALTH[facility]ARE LAB Device ID [id number] 11/06/2024 7:32 PM EDT [facility] Specimen Type POC Capillary 11/06/2024 7:32 PM EDT [facility] Blood Capillary blood specimen / Unknown 11/06/2024 7:31 PM EDT 11/06/2024 7:32 PM EDT Nathaly Nowak MD LAB POINT OF CARE TE ST DOCKED DEVICE UNSOLICITED RESULTS Final Result [facility] [address] [place] [address] * (ABNORMAL) POCT glucose meter (11/06/2024 6:15 [...] Comment 11/06/2024 6:17 PM EDT [facility] Hose Inspector And Patcher ID Estefani Sheth 11/06/2024 6:17 PM EDT [facility] LAB Device ID [id number] 11/06/2024 6:17 PM EDT [facility] Specimen Type POC Capillary 11/06/2024 6:17 PM EDT [facility] Blood Capillary blood specimen / Unknown 11/06/2024 6:15 PM EDT 11/06/2024 6:17 PM EDT Nathaly Nowak MD LAB POINT OF CARE TE ST DOCKED DEVICE UNSOLICITED RESULTS Final Result Performing Organization Address City/State/[facility] Co de Phone Number [facility] [address] [place] [address] * (ABNORMAL) POCT glucose meter (11/06/2024 4:57 PM EDT) [facility] POCT Glucose 417(H) 74 - 99 [...] Comment 11/06/2024 4:58 PM EDT [facility] Hose Inspector And Patcher ID Estefani Sheth 11/06/2024 4:58 PM EDT [facility] LAB Device ID [id number] 11/06/2024 4:58 PM EDT [facility] Specimen Type POC Capillary 11/06/2024 4:58 PM EDT [facility] Blood Capillary blood specimen / Unknown 11/06/2024 4:57 PM EDT 11/06/2024 4:58 PM EDT Nathaly Nowak MD LAB POINT OF CARE TE ST DOCKED DEVICE UNSOLICITED RESULTS Final Result Performing Organization Address City/[facility]/ZIP Co de Phone Number [facility] [address] [place] [address] * (ABNORMAL) POCT glucose meter (11/06/2024 2:08 PM EDT) [facility] POCT Glucose 253(H) 74 - 99 mg/dL [...] Comment 11/06/2024 2:09 PM EDT [facility] Hose Inspector And Patcher ID Brigitte Castellon 11/06/2024 2:09 PM EDT [facility] LAB Device ID [id number] 11/06/2024 2:09 PM EDT [facility] Specimen Type POC Capillary 11/06/2024 2:09 PM EDT [facility] Blood Capillary blood specimen / Unknown 11/06/2024 2:08 PM EDT 11/06/2024 2:09 PM EDT Result [facility] Nathaly Nowak MD LAB POINT OF CARE TE ST DOCKED DEVICE UNSOLICITED RESULTS Final Result Performing Organization Address [facility] Co de Phone Number [facility] [address] [place] [address] * (ABNORMAL) POCT glucose meter (11/06/2024 12:27 PM EDT) [facility] POCT Glucose 228(H) 74 - 99 mg/dL [...] for testing. Comment 11/06/2024 12:28 PM EDT [facility] Hose Inspector And Patcher ID Jacinta Galloway 11/06/2024 12:28 PM EDT [facility]ALTH[facility]ARE LAB Device ID [id number] 11/06/2024 12:28 PM EDT [facility] Specimen Type POC Capillary 11/06/2024 12:28 PM EDT [facility] Blood Capillary blood specimen / Unknown 11/06/2024 12:27 PM EDT 11/06/2024 12:28 PM EDT us Nathaly Nowak MD LAB POINT OF CARE TE ST DOCKED DEVICE UNSOLICITED RESULTS Final Result [facility] [address] [place] [address] * (ABNORMAL) Tissue Culture and Gram Stain (11/06/2024 11:34 AM EDT) Culture Moderate Growth 7:35 AM EDT [facility] Culture 2+ Enterobacter cloacae complex(A) ANGÉLICA 11/15/2024 7:35 AM EDT [facility] Comment: This isolate has been identified using the FDA Approved [employer] System The organism value for this result has been updated. These results have been appended to the previously preliminary verified report. Edited result: Previously reported as Gram Negative Jesus on 11/07/2024 at 1434 EDT. Culture 2+ Streptococcus mitis/oralis group(A) ANGÉLICA 11/15/2024 7:35 AM EDT [facility] Comment: This isolate has been identified using the FDA Approved [employer] System The organism value for this result has been updated. These results have been appended to the previously preliminary verified report. Culture 2+ Pasteurella stomatis(A) ANGÉLICA 11/15/2024 7:35 AM EDT [facility] Comment: This result was determined by [employer] tof mass spectrometry using the [employer] database and is for research use only. The organism value for this result has been updated. These results have been appended to the previously preliminary verified report. Gram Stain Result Few Gram negative rods(A) 11/15/2024 7:35 AM EDT [facility] Gram Stain Result Moderate Polymorphonuclear leukocytes(A) 11/15/2024 7:35 AM EDT [facility] Gram Stain Result Few Gram positive cocci in pairs(A) 11/15/2024 7:35 AM EDT [facility] Tissue Topography unknown / Unknown 11/06/2024 11:34 AM EDT 11/06/2024 12:18 PM EDT Comment:Pre-op diagnosis: Surgical wound infection [T81.49XA] Narrative [facility] - 11/15/2024 7:35 AM EDT [...] GENERAL ATIYA FRITZ Edited Result - Final [facility] [address] [place] [address] * (ABNORMAL) Anaerobic Culture (11/06/2024 11:34 AM EDT) Culture No anaerobes isolated 11/14/2024 1:25 PM EDT [facility] Culture Staphylococcus pseudintermedius( A) 11/14/2024 1:25 PM EDT [facility] Comment: This result was determined by [employer] tof mass spectrometry using the [employer] database and is for research use only. This is an appended report. These results have been appended to a previously final verified report. Tissue Topography unknown / Unknown 11/06/2024 11:34 AM EDT 11/06/2024 12:18 PM EDT Comment:Pre-op diagnosis: Surgical wound infection [T81.49XA] Narrative [facility] - 11/14/2024 1:25 PM EDT [...] Nathaly Nowak MD LAB MICROBIOLOGY - [facility] Edited Result - Final [facility] [address] [place] [address] * (ABNORMAL) Routine Culture and Gram Stain (11/06/2024 11:29 AM EDT) Culture Moderate Growth 5:29 PM EDT [facility] Culture Enterobacter cloacae complex(A) 11/08/2024 5:29 PM EDT [facility] Comment: This isolate has been identified using the FDA Approved Responde Aiyper CA System For susceptibility results refer to: - [id number] The organism value for this result has been updated. These results have been appended to the previously preliminary verified report. Gram Stain Result No polymorphonuclear leukocytes seen 11/08/2024 5:29 PM EDT [facility] Gram Stain Result No organisms seen 11/08/2024 5:29 PM EDT [facility] Swab Topography unknown / Unknown 11/06/2024 11:29 AM EDT 11/06/2024 12:19 PM EDT Comment:Pre-op diagnosis: Surgical wound infection [T81.49XA] Nathaly Nowak MD LAB MICROBIOLOGY - GENERAL ORDE RABLES Final Result Performing Organization Address City/[facility]/ZIP Co de Phone Number [facility] [address] [place] [address] * Fungal Culture, Routine (11/06/2024 11:29 AM EDT) Culture No Fungal Growth at 1 Week 11/13/2024 8:29 AM EDT [facility] Swab Topography unknown / Unknown 11/06/2024 11:29 AM EDT 11/06/2024 12:19 PM EDT Comment:Pre-op diagnosis: Surgical wound infection [T81.49XA] Nathaly Nowak MD LAB MICROBIOLOGY - GENERAL ORDE RABLES Final Result Performing Organization Address [facility] [place] [address] * (ABNORMAL) Anaerobic Culture (11/06/2024 11:29 AM EDT) Culture No anaerobes isolated 11/14/2024 1:25 PM EDT [facility] Culture Streptococcus mitis/oralis group(A) 11/14/2024 1:25 PM EDT [facility] Comment: This result was determined by [employer]DI tof mass spectrometry using the [employer] database and is for research use only. The organism value for this result has been updated. These results have been appended to the previously preliminary verified report. This is a corrected result. Previous organism was Mixed skin clifton on 11/10/2024 at 0718 EDT. Culture Staphylococcus pseudintermedius( A) 11/14/2024 1:25 PM EDT [facility] Comment: This isolate has been identified using the FDA Approved RadarChileer CA System This is an appended report. These results have been appended to a previously final verified report. Swab Topography unknown / Unknown 11/06/2024 11:29 AM EDT 11/06/2024 12:19 PM EDT Comment:Pre-op diagnosis: Surgical wound infection [T81.49XA] Narrative [facility] - 11/14/2024 1:25 PM EDT [...] Nathaly Nowak MD [facility] Edited Result - Final [facility] [address] [place] [address] * Routine Culture and Gram Stain (11/06/2024 11:28 AM EDT) Culture No growth at day 4 2024 11:24 AM EDT [facility] Gram Stain Result No organisms seen 11/10/2024 11:24 AM EDT [facility] Gram Stain Result No polymorphonuclear leukocytes seen 11/10/2024 11:24 AM EDT [facility] Swab Topography unknown / Unknown 11/06/2024 11:28 AM EDT 11/06/2024 12:20 PM EDT Comment:Pre-op diagnosis: Surgical wound infection [T81.49XA] Nathaly Nowak MD LAB MICROBIOLOGY - GENERAL ATIYA FRITZ Final Result Performing Organization Address [facility] Co de Phone Number [facility] [address] [place] [address] * Fungal Culture, Routine (11/06/2024 11:28 AM EDT) Culture No Fungal Growth at 1 Week 11/13/2024 8:29 AM EDT [facility] Swab Topography unknown / Unknown 11/06/2024 11:28 AM EDT 11/06/2024 12:20 PM EDT Comment:Pre-op diagnosis: Surgical wound infection [T81.49XA] Nathaly Nowak MD LAB MICROBIOLOGY - GENERAL ATIYA FRITZ Final Result Performing Organization Address [facility] Co de Phone Number [facility] [address] [place] [address] * Anaerobic Culture (11/06/2024 11:28 AM EDT) Culture No growth at day 4 11/13/2024 12:53 PM EDT [facility] Swab Topography unknown / Unknown 11/06/2024 11:28 AM EDT 11/06/2024 12:20 PM EDT Comment:Pre-op diagnosis: Surgical wound infection [T81.49XA] Nathaly Nowak MD LAB MICROBIOLOGY - GENERAL ATIYA FRITZ Final Result Performing Organization Address City/[facility] Co de Phone Number [facility] [address] [place] [address] * (ABNORMAL) POCT glucose meter (11/06/2024 10:16 AM EDT) POCT Glucose 194(H) 74 - 99 mg/dL 11/06/2024 10:18 AM EDT [facility] Comment:Accuracy of a glucos e [...] Comment 11/06/2024 10:18 AM EDT [facility] Hose Inspector And Patcher ID Lacy Griffin 11/07/19 10:18 AM EDT [facility] Device ID [id number] 11/06/2024 10:18 AM EDT [facility] Specimen Type POC Capillary 11/06/2024 10:18 AM EDT [facility] Blood Capillary blood specimen / Unknown 11/06/2024 10:16 AM EDT 11/06/2024 10:18 AM EDT Nathaly Nowak MD LAB POINT OF CARE TE ST DOCKED DEVICE UNSOLICITED RESULTS Final Result Performing Organization Address City/[facility] Co de Phone Number [facility] [address] [place] [address] * (ABNORMAL) POCT glucose meter (11/06/2024 5:58 [...] Comment 11/06/2024 6:01 AM EDT [facility] Hose Inspector And Patcher ID Raj Laird 11/07/19 6:01 AM EDT [facility] Device ID [id number] 11/06/2024 6:01 AM EDT [facility] Specimen Type POC Capillary 11/06/2024 6:01 AM EDT [facility] Blood Capillary blood specimen / Unknown 11/06/2024 5:58 AM EDT 11/06/2024 6:01 AM EDT us Nathaly Nowak MD LAB POINT OF CARE TE ST DOCKED DEVICE UNSOLICITED RESULTS Final Result Performing Organization Address City/[facility]/ZIP Co de Phone Number [facility] [address] [place] [address] * (ABNORMAL) POCT glucose meter (11/06/2024 5:36 [...] Comment 11/06/2024 5:38 AM EDT [facility] Hose Inspector And Patcher ID Shahid Sanches 11/06/2024 5:38 AM EDT [facility] Device ID [id number] 11/06/2024 5:38 AM EDT [facility] Specimen Type POC Capillary 11/06/2024 5:38 AM EDT [facility] Blood Capillary blood specimen / Unknown 11/06/2024 5:36 AM EDT 11/06/2024 5:38 AM EDT us Nathaly Nowak MD LAB POINT OF CARE TE ST DOCKED DEVICE UNSOLICITED RESULTS Final Result Performing Organization Address City/State/[facility] Co de Phone Number [facility] [address] [place] [phone] * (ABNORMAL) Hemoglobin A1c (11/06/2024 1:07 AM EDT) Hemoglobin A1c 7.6(H) <5.7 % 11/06/2024 11:09 AM EDT [facility] Blood Venous blood specimen / Unknown Venipuncture / Unknown 11/06/2024 1:07 AM EDT 11/06/2024 1:26 AM EDT Narrative [facility] - 11/06/2024 11:09 AM EDT HA1C Interpretive Data: Diagnosis of Diabetes: Diabetic > or = 6.5% Pre-diabetic 5.7 to 6.4% Non-diabetic < or = 5.6% Glycemic Targets for Type I and Type II Diabetics: Non- Adults <7.0% Adults <6.0% Children and Adolescents <7.5% Source: [place] [employer]. Standards of medical care in diabetes,2017. Diabetes Care.2017:40 (suppl 1):S1-S135. Result [facility] Nathaly Nowak MD LAB BLOOD ORDERABLES Final Resu lt Performing Organization Address City/[facility]/ZIP Co de Phone Number [facility] [address] [place] [address] * Blood Culture (Aerobic/Anaerobet Set) (11/06/2024 1:07 AM EDT) Culture No growth at day 5 11/11/2024 2:49 AM EDT [facility] Blood Structure of right hand / Unknown Venipuncture / Unknown 11/06/2024 1:07 AM EDT 11/06/2024 2:36 AM EDT Nathaly Nowak MD LAB MICROBIOLOGY - GENERAL ORDE RABONEIDA Final Result Performing Organization Address [facility] Co de Phone Number [facility] [address] [place] [address] * Blood Culture (Aerobic/Anaerobet Set) (11/06/2024 1:07 AM EDT) Culture No growth at day 5 11/11/2024 3:01 AM EDT [facility] Blood Structure of antecubital vein / Unknown Venipuncture / Unknown 11/06/2024 1:07 AM EDT 11/06/2024 2:36 AM EDT Result [facility] Nathaly Nowak MD LAB MICROBIOLOGY - GENERAL ORDE RABONEIDA Final Result Performing Organization Address City/[facility] Co de Phone Number [facility] [address] [place] [address] * (ABNORMAL) Basic metabolic panel (11/06/2024 1:07 AM EDT) Glucose, Plasma 207(H) 74 - 99 mg/dL 11/06/2024 1:41 AM EDT [facility] BUN, Plasma 20 8 - 23 mg/dL 11/06/2024 1:41 AM EDT [facility] Creatinine, Plasma 0.92 0.70 - 1.20 mg/dL 11/06/2024 1:41 AM EDT [facility] BUN/Creatinine Ratio 22 11/06/2024 1:41 AM EDT [facility] Sodium, Plasma 136 136 - 145 mmol/L 11/06/2024 1:41 AM EDT [facility] Potassium, Plasma 4.5 3.6 - 4.9 mmol/L 11/06/2024 1:41 AM EDT [facility] Chloride, Plasma 104 97 - 107 mmol/L 11/06/2024 1:41 AM EDT [facility] CO2, Plasma 22 22 - 29 mmol/L 11/06/2024 1:41 AM EDT [facility] Anion Gap 10 6 - 16 mmol/L 11/06/2024 1:41 AM EDT [facility] Total Calcium, Plasma 9.0 8.9 - 10.2 mg/dL 11/06/2024 1:41 AM EDT [facility] eGFRcr 92.3 mL/min/1.7 3m*2 11/06/2024 1:41 AM EDT [facility] Comment:Reported eGFRcr in m L/min/1.73m2 is based the CKD-EPI 2020 equation that does not use a race coefficient. Blood Venous blood specimen / Unknown Venipuncture / Unknown 11/06/2024 1:07 AM EDT 11/06/2024 1:12 AM EDT us Nathaly Nowak MD LAB BLOOD ORDERABLES Final Resu lt [facility] [address] [place] [address] * Phosphorus (11/06/2024 1:07 AM EDT) Phosphorus, Plasma 3.2 2.5 - 4.5 mg/dL 11/06/2024 1:41 AM EDT [facility] Blood Venous blood specimen / Unknown Venipuncture / Unknown 11/06/2024 1:07 AM EDT 11/06/2024 1:12 AM EDT us Nathaly Nowak MD LAB BLOOD ORDERABLES Final Resu lt Performing Organization Address City/[facility]/ZIP Co de Phone Number [facility] [address] [place] [address] * Magnesium (11/06/2024 1:07 AM EDT) Magnesium, Plasma 2.2 1.9 - 2.4 mg/dL 11/06/2024 1:41 AM EDT [facility] Blood Venous blood specimen / Unknown Venipuncture / Unknown 11/06/2024 1:07 AM EDT 11/06/2024 1:12 AM EDT us Nathaly Nwoak MD LAB BLOOD ORDERABLES Final Resu lt Performing Organization Address [facility] Co de Phone Number [facility] [address] [place] [address] * (ABNORMAL) CBC (11/06/2024 1:07 AM EDT) Pathologist [facility] WBC Count 9.70 3.70 - 10.30 10*3/uL LAB HEMATOLOGY METHOD 11/06/2024 1:19 AM EDT [facility] RBC Count 2.89(L) 4.60 - 6.10 10*6/uL LAB HEMATOLOGY METHOD 11/06/2024 1:19 AM EDT [facility] HGB 8.8(L) 13.7 - 17.5 g/dL LAB HEMATOLOGY METHOD 11/06/2024 1:19 AM EDT [facility] HCT 26.2(L) 40.0 - 51.0 % LAB HEMATOLOGY METHOD 11/06/2024 1:19 AM EDT [facility] Platelet Count 542(H) 155 - 369 10*3/uL LAB HEMATOLOGY METHOD 11/06/2024 1:19 AM EDT [facility] MCV 91 79 - 98 fL LAB HEMATOLOGY METHOD 11/06/2024 1:19 AM EDT [facility] MCH 30.4 26.0 - 32.0 pg LAB HEMATOLOGY METHOD 11/06/2024 1:19 AM EDT [facility] MCHC 33.6 30.7 - 35.5 g/dL LAB HEMATOLOGY METHOD 11/06/2024 1:19 AM EDT [facility] RDW 13.2 11.5 - 14.5 % LAB HEMATOLOGY METHOD 11/06/2024 1:19 AM EDT [facility] MPV 8.7(L) 8.8 - 12.5 fL LAB HEMATOLOGY METHOD 11/06/2024 1:19 AM EDT [facility] nRBC 0.0 <=0.0 per 100 WBCs LAB HEMATOLOGY METHOD 11/06/2024 1:19 AM EDT [facility] Blood Venous blood specimen / Unknown Venipuncture / Unknown 11/06/2024 1:07 AM EDT 11/06/2024 1:12 AM EDT us Nathaly Nowak MD LAB BLOOD ORDERABLES Final Resu lt Performing Organization Address [facility]/ZIP Co de Phone Number [facility] [address] [place] [address] * Gold Top (11/06/2024 12:58 AM EDT) Extra Hold for add-ons 11/06/2024 3:21 AM EDT [facility] Comment:Auto resulted. Blood Venous blood specimen / Unknown 11/06/2024 12:58 AM EDT 11/06/2024 1:13 AM EDT us Nathaly Nowak MD LAB BLOOD ORDERABLES Final Resu lt [facility] [address] [place] [address] * Gold Top (11/06/2024 12:58 AM EDT) Extra Hold for add-ons 11/06/2024 3:21 AM EDT [facility] Comment:Auto resulted. Blood Venous blood specimen / Unknown 11/06/2024 12:58 AM EDT 11/06/2024 1:13 AM EDT us Nathaly Nowak MD LAB BLOOD ORDERABLES Final Resu lt Performing Organization Address City/[facility]/ZIP Co de Phone Number [facility] [address] [place] [address] * Light Green Top (11/06/2024 12:58 AM EDT) Extra Hold for add-ons 11/06/2024 3:21 AM EDT [facility] Comment:Auto resulted. Blood Venous blood specimen / Unknown 11/06/2024 12:58 AM EDT 11/06/2024 1:13 AM EDT us Nathaly Nowak MD LAB BLOOD ORDERABLES Final Resu lt Performing Organization Address [facility] Co de Phone Number [facility] [address] [place] [address] * Light Blue Top (11/06/2024 12:58 AM EDT) Extra Hold for add-ons 11/06/2024 3:21 AM EDT [facility] Comment:Auto resulted. Blood Venous blood specimen / Unknown 11/06/2024 12:58 AM EDT 11/06/2024 1:13 AM EDT us Nathaly Nowak MD LAB BLOOD ORDERABLES Final Resu lt Performing Organization Address [facility]/ZIP Co de Phone Number [facility] [address] [place] [address] * Light Blue Top (11/06/2024 12:58 AM EDT) Extra Hold for add-ons 11/06/2024 3:21 AM EDT [facility] Comment:Auto resulted. Blood Venous blood specimen / Unknown 11/06/2024 12:58 AM EDT 11/06/2024 1:13 AM EDT us Nathaly Nowak MD LAB BLOOD ORDERABLES Final Resu lt Performing Organization Address City/[facility]/ZIP Co de Phone Number [facility] [address] [place] [address] * (ABNORMAL) POCT glucose meter (11/06/2024 12:45 [...] Comment 11/06/2024 12:48 AM EDT [facility] Hose Inspector And Patcher ID Raj Laird 11/07/19 12:48 AM EDT [facility] Device ID [id number] 11/06/2024 12:48 AM EDT [facility] Specimen Type POC Capillary 11/06/2024 12:48 AM EDT [facility] Blood Capillary blood specimen / Unknown 11/06/2024 12:45 AM EDT 11/06/2024 12:48 AM EDT Nathaly Nowak MD LAB POINT OF CARE TE ST DOCKED DEVICE UNSOLICITED RESULTS Final Result Performing Organization Address City/State/[facility] Co de Phone Number [facility] [address] [place] [phone] documented in this encounter Visit Diagnoses Diagnosis [...] 10 mL, Intravenous, As needed, Starting on [facility] 11/06/24 at 0031, Until [facility] 11/14/24 at 1804, Routine, line care [...] needed, Starting on Mon11/06/24 at 0753, Until [facility] 11/14/24 at 1804, Routine, On Unit - Preprocedure, line care sodium chloride 0.9 % flush 10 mL 10 mL, Intravenous, Every 12 hours, First dose on [facility] 11/09/24 at 1515, Until Discontinued, Routine Given 11/14/2024 2:42 PM EDT 10 mL Given 11/14/2024 3:03 AM EDT 10 mL Given 11/13/2024 4:43 PM EDT 10 mL Sodium Hypochlorite (Dakin's (HALF-Strength)) external solution 1 Application Irrigation, Daily, First dose on [facility] 11/09/24 at 0945, Until Discontinued, Routine Given 11/11/2024 8:26 AM EDT 1 Application Given 11/10/2024 8:32 AM EDT 1 Application Given 11/09/2024 10:18 AM EDT 1 Application tamsulosin (Flomax) 24 hr capsule 0.4 mg 0.4 mg, Oral, Every evening, First dose on [facility] 11/06/24 at 1700, Until Discontinued, Routine Given 11/13/2024 [...] Provider: Devora Bo)1356 (Given - Provider: Devora Bo)180 (Given - Provider: Devora Bo)212 (Given - [...] Devora Bo) 0258 (Given - Provider: Jonathan Vale, CHRISTIAN)1643 (Given - Provider: Devora Bo) 0303 (Given - Provider: Jonathan Vale, CHRISTIAN)1442 (Given - Provider: Yazmin Bhatt, CHRISTIAN) Sodium [...] Provider: Devora Bo)2149 (Given - Provider: Jonathan Vale, CHRISTIAN - Comment: previous antibiotic not finished) 0840 [...] documented as of this encounter Care Teams Livestock Nutritionist Relationship Specialty Start Date End Date Asad Victor MD [address] [place] [address] PCP - General 10/07/22 documented as of this encounter"
--- OUTSIDE RECORDS SUMMARY | 2024-11-06 10:08 | XMS_ITS | Encounter Summary ---
Author Organization Healthcare Address [address] [place] [address] Care Team Providers Care Usability Specialist Name Role Phone Asad Victor MD Primary Care Provider + [phone] Reason for Visit * Reason Comments Post-op Problem Wound Check * Auth/Cert (Routine) Specialty Diagnoses / Procedures Referred By Contac t Referred To Contact Diagnoses Wound infection Post-op Vasc Sx wounds - sx on 10/17 at Nathaly Nowak MD [address] [address] Phone: tel: fax: [facility] Emergency Department [address] [place] [address] Phone: tel: Referral ID Status Reason Start Date Expiration Date Visits Re quested Visits Authorized [id number] 1 1 Encounter Details Date Type Department Care Team (Late st Contact Info) Description 11/06/2024 10:08 AM EDT - 11/06/2024 11:38 AM EDT Surgery [facility] OPERATING ROOM [address] [place] [address] Nathaly Nowak MD [id number] [place] [address] Left groin exploration and washout, [...] any time in the past 12 m [facility], were you homeless or [...] drink first t dino in the morning (EYE-PROPOSAL EDITOR) to steady your nerves or to get rid of a hangover? 0 10/18/2021 CAGE Questionnaire Score 0 022 Utilities Answer Date Recorded In the past 12 months has Spring, gas, oil, or water [employer] threatened to shut off services in your [...] Carmona with any questions or concerns at [phone]. It is important that you get your [...] Note Bev Borja 64 y.o. male CSN: [id number] Admission: 11/05/2024 9:45 PM Primary Problem: Wound infection Primary Spot Cleaner: Primary Caregiver: Self Assistance Available at Discharge: [...] previous admission in last 30 days Follow-up: [facility] [address] [facility] [address] [facility] [address] Go to Infusion Clinic. Please arrive at [address] [facility] [address] Go to Wound care clinic. First appointment is 1:10 pm. Please call [phone] with scheduling concerns. Discharge Transportation: Transportation Anticipated: medical transport Transportation Home at Discharge: Medical Transport Follow Up Transport: Transportation Needed to Follow up Appoinments: Medical Transport Additional Comments: Patient discharging home. No other SW needs identified. Mariia Monterroso SINGLE NEEDLE TUFTING MACHINE OPERATOR * Discharge Summary - Melecio Echevarria DO - 11/14/2024 12:46 PM EDT Hospitalization Admit Date/Time: 11/05/2024 9:45 PM Admitting Attending: Nathaly Nowak Discharge Date: 11/14/2024 Discharge Attending Physician: Nathaly Nowak MD PCP name and Address: Asad Victor MD (Inactive) [address] [place] [address] / [address] [address] Referring provider name and address: Wade Cowart, DO [address] [place] [address] Chief Concern, Brief History of Present Illness, and Hospital Course Mr. Borja is a 64 y/o male that presented to [facility] on 11/06/2024 for surgical wound infection [...] Your Medications These medications were sent to [facility] Infusion Services - GLENDA Solorzano - [address], [place] [address] ertapenem injection micafungin injection Discharge Diagnosis Medical [...] Time Provider Department Center 11/26/2024 2:00 PM [facility] 11/26/2024 2:30 PM [facility] 11/26/2024 3:20 PM Elisabet Schuster PA [facility] 11/29/2024 2:30 PM Oscar Appiah MD [id number] Test Results Pending At Discharge Pending Labs [...] a 64 y/o male that presented to [facility] on 11/06/2024 for surgical wound infection [...] portions of the procedure(s) and immediately available [facility] services the entire duration. See resident note for details. * Progress Notes - Mariia Monterroso - 11/13/2024 1:57 PM EDT Case Management Adult Progress Note Bev Borja 64 y.o. male CSN: [id number] Admission: 11/05/2024 9:45 PM Primary Problem: Wound infection Wound vac to be delivered today by at bedside. SW sent referral/orders to [facility] (fax [phone]) and infusion clinic (fax [phone]). Plan to discharge tomorrow. SW will continue to follow. Mariia Monterroso SINGLE NEEDLE TUFTING MACHINE OPERATOR * Progress Notes - Bianca Knight PharmD - 11/13/2024 12:55 PM EDT Vancomycin therapy has been stopped per ID recommendation. Pharmacist will sign off from dosing and monitoring vancomycin. Please re- consult a pharmacist if more vancomycin is indicated. Bianca Knight PharmD, [facility] * Progress Notes - Ailin Levy [...] Lumen PICC Antimicrobial Regimen: IV Ertapenem 1g [id number] start date:11/06/2024 Projected End date:12/18/2024 IV Micafungin 150mg [id number] Start date: 11/12/2024 Projected End Date: 12/24/2024 [...] OPAT Team Attn: Dr Kraus Fax #: [phone] Appointments: (Dr Appiah 08/02/2024 at 2.30pm) at: [facility]: [address] [place] [address] (Select Option 3 for IV Antibiotic / PICC line related issues) For questions regarding OPAT prior to discharge, reach out to the OPAT team via [email or web address] Secure Chat (Group: OPAT Referral Team). For all questions regarding OPAT after discharge should be directed to the OPAT Team at (Select Option 3 for IV Antibiotics/PICC Issues) between 8am-5pm. After 5 pm, or during weekends/ holidays, please call the paging precision thread grinder operator at to reach the on-call ID [...] the original note were not included. [facility] Department of Surgery Division of Vascular Surgery Surgery Progress Note 11/13/24 Bev Borja Subjective Subjective: HPI 64yoM PMHx COPD, T2DM, HLD, HTN, RLS, CAD s/p PCI (on Xarelto) s/p pacemaker c/b left SANDIP pseudoaneurysm s/p thrombin injection 09/21/24, CLI s/p left femoral endarterectomy with EIA/NURSE SUBSTANCE ABUSE stenting 10/17/24, who presented to [facility] 11/05/2024 with wound infection. 11/06/24: [...] 09/21/24, CLI s/p left femoral endarterectomy with EIA/NURSE SUBSTANCE ABUSE stenting 10/17/24, who presented to [facility] 11/05/2024 with wound infection. POD [...] the findings. Cardiac Device Check - PRE[facility]OR [facility] EP-Device Clinic: Pre-operative CIED Report Assessment and Sara-Procedural Reommendations: Name: Bev Borja Date: 10/17/2024 : 1960 Age: 64 y.o. 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 Lead integrity test [...] recommendations. Supporting reports can be found in [employer] media file. Micro: Susceptibility data from last [...] Units Date/Time Tissue Culture and Gram Stain [[id number]] (Abnormal) (Susceptibility) Collected: 11/06/24 1134 Order Status: Completed Specimen: Tissue from Other (specify site) Updated: 11/12/24 1334 Culture Moderate Growth 2+ Enterobacter cloacae complex Comment: This isolate has been identified using the FDA Approved [employer] CA System The organism value for this result has been updated. These results have been appended to the previously preliminary verified report. Edited result: Previously reported as Gram Negative Jesus on 11/07/2024 at 1434 EDT. 2+ Streptococcus mitis/oralis group Comment: This isolate has been identified using the FDA Approved MALDI [employer] CA System The organism value for this result has been updated. These results have been appended to the previously preliminary verified report. 2+ Pasteurella stomatis Comment: This result was determined by MALDI tof mass spectrometry using the [employer] database and is for research use only. [...] stewardship team. Comprehensive GI Panel by PCR [[id number]] (Normal) Collected: 11/12/24 0950 Order Status: Completed [...] if clinically indicated. Clostridiodes (Clostridium) difficile PCR [[id number]] (Normal) Collected: 11/12/24 0950 Order Status: Completed [...] high complexity clinical laboratory testing. 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 These results have been appended to the previously preliminary verified report. Edited result: Previously reported as Yeast on 11/11/2024 at 1317 EDT. ISIDRO No fungal elements seen Additional Susceptibilities and/or Identification [[id number]] Collected: 11/11/24 1240 Order Status: Completed Specimen: Tissue from Wound (specify site): Additional Susceptibilities and/or Identification [[id number]] Collected: 11/11/24 1238 Order Status: Completed Specimen: Tissue from Wound (specify site): Additional Susceptibilities and/or Identification [[id number]] Collected: 11/11/24 1237 Order Status: Completed Specimen: Tissue from Wound (specify site): AFB Culture, Non Respiratory Source and Acid Fast Stain [[id number]] Collected: 11/06/24 1134 Order Status: Completed Specimen: Tissue from Other (specify site) Updated: 11/11/24 0938 AFB Culture No Mycobacterial Growth <1 Week Acid Fast Stain No acid fast bacilli seen Blood Culture (Aerobic/Anaerobet Set) [[id number]] Collected: 11/06/24106 Order Status: Completed Specimen: Blood from AC, Left Updated: 11/11/24 0301 Culture No growth at day 5 Blood Culture (Aerobic/Anaerobet Set) [[id number]] Collected: 11/06/24106 Order Status: Completed Specimen: Blood [...] [facility]. [facility] [...] to stay a facility, plan for [facility] daily IV abx. Plan [...] mL 10 mL Intravenous q1h PRN Reid aDniels MD sodium chloride 0.9 % flush 20 [...] MD 1,000 mg at11/13/24 0840 Cosigned by Vaishlai Kraus MD at 11/14/2024 1:46 AM EDT [...] Prevent or Manage Pain Flowsheets (Taken 11/11/2024 2549 by Jonathan Vale RN) Sensory Stimulation Regulation: care clustered lighting decreased quiet environment promoted Medication Review/Management: medications reviewed * Consults - Anabel Ovalle RD - 11/12/2024 9:59 AM EDT Adult Nutrition Evaluation Note Bev Borja 64 y.o. male CSN: [id number] Room/Bed 682/682B Nutrition evaluation type: assessment Reason for evaluation: LOS Hospital course: 64 y.o. male with PMHx significant for COPD, CAD s/p PCI (on Xarelto) s/p pacemaker c/b left SANDIP pseudoaneurysm s/p thrombin injection 09/21/24, chronic limb ischemia s/p left femoralendarterectomy with external iliac/common femoral artery stenting 10/17/24, T2DM, HLD, HTN, RLS who presented to the [facility] on 11/05/2024 with problems with [...] (Room air) O2 Delivery Method: Face tent Biggers Coma Scale Score: 15 Loi Scale Score: [...] (194 lb 3.6 oz) BMI (Calculated): 30.41 Arthur Body Weight (kg): 67.3 Percent Arthur Body Weight: 131 Adjusted Body Weight (kg): [...] oz) Estimated Needs: Kcal/ K-30 Kcal Provided: 2205-9468 Kcal Needs Based On: Adjusted weight Gm Protein/ Kg : 1.2-1.5 Protein Provided: 87-108 Protein Needs Based On: Adjusted weight Metabolic Cart Study Results: Current Nutrition Intake: Diet Order: Adult Diet Diet Texture: Regular Adult Carbohydrate Restriction: Consistent CHO 1 (6254-2298 Jatinder, 65 g/meal) Percent Meals Eaten (%): avg 63% x 6 emals Diet Experience and Nutrition History: Diet Education Provided: Will monitor Pertinent home medications: clopidogrel, docusate sodium, Lantus, Humalog, lisinopril, metoprolol tartrate, pravastatin, rivaroxaban, ropinirole, tamsulosin Rastafari needs: Nutrition Focused Physical Exam: Physical exam [...] ENDARTERECTOMY N/A 2017 Endarterectomy Carotid Artery from [facility] CORONARY ANGIOPLASTY Left Coronary Angiography With Concomitant Left Heart Catheterization from [facility] CORONARY ARTERY BYPASS GRAFT N/A 2018 3V ELBOW SURGERY Right ENDARTERECTOMY Left 10/17/2024 common/SFA/Profunda thromboendarterectomy, EIA/NURSE SUBSTANCE ABUSE stent HERNIA REPAIR KNEE ARTHROSCOPY Left VASCULAR SURGERY Left 09/21/2024 NURSE SUBSTANCE ABUSE pseudoaneurym injection [3] Social History Tobacco Use [...] from the original note were not included. [facility] Department of Surgery Division of Vascular Surgery Surgery Progress Note 11/12/24 Bev Perez Cristoferkeo Subjective Subjective: HPI 64yoM PMHx COPD, T2DM, HLD, HTN, RLS, CAD s/p PCI (on Xarelto) s/p pacemaker c/b left SANDIP pseudoaneurysm s/p thrombin injection 09/21/24, CLI s/p left femoral endarterectomy with EIA/NURSE SUBSTANCE ABUSE stenting 10/17/24, who presented to [facility] 11/05/2024 with wound infection. 11/06/24: [...] 09/21/24, CLI s/p left femoral endarterectomy with EIA/NURSE SUBSTANCE ABUSE stenting 10/17/24, who presented to [facility] 11/05/2024 with wound infection. POD [...] the findings. Cardiac Device Check - [facility] EP-Device Clinic: Pre-operative CIED Report Assessment and Sara-Procedural Reommendations: Name: Bev Borja Date: 10/17/2024 : 1960 Age: 64 y.o. 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 Lead integrity test [...] recommendations. Supporting reports can be found in [employer] media file. Micro: Susceptibility data from last [...] Units Date/Time Tissue Culture and Gram Stain [[id number]] (Abnormal) (Susceptibility) Collected: 11/06/24 1134 Order Status: Completed Specimen: Tissue from Other (specify site) Updated: 11/12/24 1334 Culture Moderate Growth 2+ Enterobacter cloacae complex Comment: This isolate has been identified using the FDA Approved [employer] CA System The organism value for this result has been updated. These results have been appended to the previously preliminary verified report. Edited result: Previously reported as Gram Negative Ejsus on 11/07/2024 at 1434 EDT. 2+ Streptococcus mitis/oralis group Comment: This isolate has been identified using the FDA Approved [employer] CA System The organism value for this result has been updated. These results have been appended to the previously preliminary verified report. 2+ Pasteurella stomatis Comment: This result was determined by MALDI tof mass spectrometry using the [employer] database and is for research use only. [...] stewardship team. Comprehensive GI Panel by PCR [[id number]] (Normal) Collected: 11/12/24 0950 Order Status: Completed [...] if clinically indicated. Clostridiodes (Clostridium) difficile PCR [[id number]] (Normal) Collected: 11/12/24 0950 Order Status: Completed [...] high complexity clinical laboratory testing. Anaerobic Culture [[id number]] Collected: 11/06/24 1128 Order Status: Completed Specimen: Swab from Other (specify site) Updated: 11/12/24 1118 Culture No growth at day 4 Fungal Culture, Tissue and ISIDRO [[id number]] (Abnormal) Collected: 11/06/24 1134 Order Status: Completed Specimen: Tissue from Other (specify site) Updated: 11/12/24 1033 Culture Reading Mycological 4 Weeks Rare Carmi Sana parapsilosis Comment: This isolate has been identified using the FDA Approved [employer] CA System The organism value for this result has been updated. These results have been appended to the previously preliminary verified report. Edited result: Previously reported as Yeast on 11/11/2024 at 1317 EDT. ISIDRO No fungal elements seen Additional Susceptibilities and/or Identification [[id number]] Collected: 11/11/24 1240 Order Status: Completed Specimen: Tissue from Wound (specify site): Additional Susceptibilities and/or Identification [[id number]] Collected: 11/11/24 1238 Order Status: Completed Specimen: Tissue from Wound (specify site): Additional Susceptibilities and/or Identification [[id number]] Collected: 11/11/24 1237 Order Status: Completed Specimen: Tissue from Wound (specify site): AFB Culture, Non Respiratory Source and Acid Fast Stain [[id number]] Collected: 11/06/24 1134 Order Status: Completed Specimen: Tissue from Other (specify site) Updated: 11/11/24 0938 AFB Culture No Mycobacterial Growth <1 Week Acid Fast Stain No acid fast bacilli seen Blood Culture (Aerobic/Anaerobet Set) [[id number]] Collected: 11/06/24106 Order Status: Completed Specimen: Blood from AC, Left Updated: 11/11/24 0301 Culture No growth at day 5 Blood Culture (Aerobic/Anaerobet Set) [[id number]] Collected: 11/06/24106 Order Status: Completed Specimen: Blood [...] OSH. On 11/06, pt went to the [facility] vascular surgery for left groin exploration [...] want to stay a facility, plan for [facility] daily IV abx. Plan for [...] mL IVPB (vial adapter required) 2 g [id number] Reid Daniels MD 36.7 mL/hr at 11/12/24 [...] PM Anthony Reyes MD 0.4 mg at [id number] Vancomycin HCl in NaCl (Vancocin) IVPB 1,000 [...] send him home on micafungin as Rare Carmi Sana parapsilosis grew and we do not [...] portions of the procedure(s) and immediately available [facility] services the entire duration. See resident note for details. * Progress Notes - Mariia Monterroso - 11/11/2024 1:10 PM EDT Case Management Adult Progress Note Bev Borja 64 y.o. male CSN: [id number] Admission: 11/05/2024 9:45 PM Primary Problem: Wound infection Patient refusing inpatient placement for IV abx. [facility] infusion clinic can provide treatment. Face sheet, IV abx orders, and order for PICC care/labs/dressing changes need to be faxed to [phone]. Voicemail left with wound care clinic. Wound vac approved per , delivery pending. Cyrsll continue to follow. Mariia Monterroso SINGLE NEEDLE TUFTING MACHINE OPERATOR * Progress Notes - Dotty [...] the findings. Cardiac Device Check - [facility] EP-Device Clinic: Pre-operative CIED Report Assessment and Sara-Procedural Reommendations: Name: Bev Borja Date: 10/17/2024 : 1960 Age: 64 y.o. 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 Lead integrity test [...] recommendations. Supporting reports can be found in [employer] media file. Micro: Susceptibility data from last [...] Non Respiratory Source and Acid Fast Stain [[id number]] Collected: 11/06/24 1134 Order Status: Completed Specimen: Tissue from Other (specify site) Updated: 11/11/24 0938 AFB Culture No Mycobacterial Growth <1 Week Acid Fast Stain No acid fast bacilli seen Blood Culture (Aerobic/Anaerobet Set) [[id number]] Collected: 11/06/24106 Order Status: Completed Specimen: Blood from AC, Left Updated: 11/11/24 0301 Culture No growth at day 5 Blood Culture (Aerobic/Anaerobet Set) [[id number]] Collected: 11/06/24 010 Order Status: Completed Specimen: Blood from Hand, Right Updated: 11/11/24 0249 Culture No growth at day 5 Anaerobic Culture [[id number]] Collected: 11/06/24 1128 Order Status: Completed Specimen: Swab from Other (specify site) Updated: 11/10/24 1441 Culture No growth at day 4 Routine Culture and Gram Stain [[id number]] Collected: 11/06/24 1128 Order Status: Completed Specimen: Swab from Other (specify site) Updated: 11/10/24 1124 Culture No growth at day 4 Gram Stain Result No organisms seen No polymorphonuclear leukocytes seen Anaerobic Culture [[id number]] (Abnormal) Collected: 11/06/24 112 Order Status: Completed Specimen: Swab from Other (specify site) Updated: 11/10/24 0718 Culture No anaerobes isolated Mixed skin clifton Comment: The organism value for this result has been updated. These results have been appended to the previously preliminary verified report. Narrative: Mixed Skin Clifton includes Streptococcus mitis/oralis group and Staphylococcus Pseudintermedius Anaerobic Culture [[id number]] (Abnormal) Collected: 11/06/24 1134 Order Status: Completed [...] [facility]. [facility] [...] mL IVPB (vial adapter required) 2 g [id number] Reid Daniels MD 36.7 mL/hr at 11/11/24 [...] from the original note were not included. [facility] Department of Surgery Division of Vascular Surgery Surgery Progress Note 11/11/24 Bev Borja Subjective Subjective: HPI 64yoM PMHx COPD, T2DM, HLD, HTN, RLS, CAD s/p PCI (on Xarelto) s/p pacemaker c/b left SANDIP pseudoaneurysm s/p thrombin injection 09/21/24, CLI s/p left femoral endarterectomy with EIA/NURSE SUBSTANCE ABUSE stenting 10/17/24, who presented to [facility] 11/05/2024 with wound infection. 11/06/24: [...] 09/21/24, CLI s/p left femoral endarterectomy with EIA/NURSE SUBSTANCE ABUSE stenting 10/17/24, who presented to [facility] 11/05/2024 with wound infection. POD [...] Edited by: Reid Daniels MD at 11/11/2024 0815 Dispo: Continue Current Level of Care Reid [...] to follow, Submitted by: Kalpesh Lord PharmD, [facility] 11/10/2024 12:45 PM * Care Plan [...] 09/21/24, CLI s/p left femoral endarterectomy with EIA/NURSE SUBSTANCE ABUSE stenting 10/17/24, who presented to [facility] 11/05/2024 with wound infection. 11/06/24: [...] 09/21/24, CLI s/p left femoral endarterectomy with EIA/NURSE SUBSTANCE ABUSE stenting 10/17/24, who presented to [facility] 11/05/2024 with wound infection. POD [...] Barraza RN Authorized by: Nathaly Nowak MD Mason Protocol: Verbal consent obtained?: Yes Written consent [...] selection rationale: Left pacemaker Catheter Lot #: [id number] Catheter car tracer: iLinc Catheter placed: Single lumen Catheter size: 4 [...] 09/21/24, CLI s/p left femoral endarterectomy with EIA/NURSE SUBSTANCE ABUSE stenting 10/17/24, who presented to [facility] 11/05/2024 with wound infection. 11/06/24: [...] 09/21/24, CLI s/p left femoral endarterectomy with EIA/NURSE SUBSTANCE ABUSE stenting 10/17/24, who presented to [facility] 11/05/2024 with wound infection. POD [...] Level of Care [place] M4 student [facility] Cosigned by Nathaly Nowak MD at 11/11/2024 [...] Mobility: Ambulatory- community (was utilizing scooter at [employer] since discharge) Mobility [place]: Independent gait with device History of Falls: [...] Mobility Bed Mobility Exam: Scooting/Bridging Level of [place]: Modified independence Bed Mobility Exam: Supine to Sit Level of [place]: Modified [place] Transfers Transfer Exam: Sit to stand Level of [place]: Modified independence Assistive Device: Rollator Transfer Exam: Stand to Sit Level of [place]: Modified independence Assistive Device: Rollator Ambulation Device: [...] maintain/improve functional mobility and endurance. Standardized Assessments [facility] 6-Clicks Mobility Assessment Difficulty patient has turning [...] with a railing?: A little [facility] 6-Clicks Mobility Assessment Total : 22 Assessment [...] Mobility Ambulatory- community (was utilizing scooter at [employer] since discharge) Mobility [place] Independent gait with device History of Falls [...] distal to knee) BED MOBILITY Level of [place] Physical/Non-physical Assist Adaptive Equipment Utilized Scooting/ Bridging Modified independence Supine to Sit Modified [place] TRANSFERS Level of [place] Physical/Non-physical Assist Adaptive Equipment Utilized Sit to Stand Modified independence Rollator Stand to sit Modified independence Rollator Toilet Transfer Modified independence Grab bar FUNCTIONAL MOBILITY Ambulation Modified independent 200ft x2 with seated rest break between bouts; RPE 5-7/10. Cues forsafety with rollator brakes. Rollator Comments BALANCE Postural Appearance Posture: Within Functional Limits Level of [place] Balance Support Static Sit Independent Feet supported Dynamic Sit Independent Feet supported Static Stand Independent Right upper extremity support, Left upper extremity support (via rollator) Dynamic Stand Independent Right upper extremity support, Left upper extremity support (via rollator) STANDARDIZED ASSESSMENTS [facility] 6-Click Daily Activities Help from Other: Don/Doff Regular Lower Body Clothings: None Help From Other: Bathing: None Help From Other: Toileting: None Help From Other: Don/Doff Upper Body Clothings: None Help From Other: Grooming: None Help From Other: Eating Meals: None [facility] 6 Click - Daily Activities Score: 24 [...] needed areas of treatment space. Level of [place] Interventions Grooming Modified independent Standing sinkside Pt [...] Note Bev Borja 64 y.o. male CSN: [id number] Admission: 11/05/2024 9:45 PM Primary Problem: Wound [...] follow and assist as needed. Mariia Monterroso SINGLE NEEDLE TUFTING MACHINE OPERATOR * Progress Notes - Bianca [...] to follow, Submitted by: Bianca Knight, ElizabethD, [facility] 11/08/2024 11:15 AM * Progress Notes - Melecio Echevarria DO - 11/08/2024 7:18 AM EDT Images from the original note were not included. [facility] Department of Surgery Division of Vascular Surgery Surgery Progress Note 11/08/24 Bev Broja Subjective Subjective: HPI 64yoM PMHx COPD,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 Venipuncture / Unknown 11/13/2024 6:37 AM EDT 11/13/2024 6:44 AM EDT us Nathaly Nowak MD LAB BLOOD ORDERABLES Final Resu lt [facility] [address] [place] [address] * (ABNORMAL) Basic Metabolic Panel, Plasma (11/13/2024 6:37 AM EDT) Glucose, Plasma 200(H) 74 - 99 mg/dL 11/13/2024 7:16 AM EDT [facility] BUN, Plasma 10 8 - 23 mg/dL 11/13/2024 7:16 AM EDT [facility] Creatinine, Plasma 0.68(L) 0.70 - 1.20 mg/dL 11/13/2024 7:16 AM EDT [facility] BUN/Creatinine Ratio 15 11/13/2024 7:16 AM EDT [facility] Sodium, Plasma 135(L) 136 - 145 mmol/L 11/13/2024 7:16 AM EDT [facility] Potassium, Plasma 3.9 3.6 - 4.9 mmol/L 11/13/2024 7:16 AM EDT [facility] Chloride, Plasma 107 97 - 107 mmol/L 11/13/2024 7:16 AM EDT [facility] CO2, Plasma 21(L) 22 - 29 mmol/L 11/13/2024 7:16 AM EDT [facility] Anion Gap 7 6 - 16 mmol/L 11/13/2024 7:16 AM EDT [facility] Total Calcium, Plasma 8.1(L) 8.9 - 10.2 mg/dL 11/13/2024 7:16 AM EDT [facility] eGFRcr 103.2 mL/min/1.7 3m*2 11/13/2024 7:16 AM EDT [facility] Comment:Reported eGFRcr in m L/min/1.73m2 is based the CKD-EPI 2020 equation that does not use a race coefficient. Blood Venous blood specimen / Unknown Venipuncture / Unknown 11/13/2024 6:37 AM EDT 11/13/2024 6:44 AM EDT us Nathaly Nowak MD LAB BLOOD ORDERABLES Final Resu lt [facility] [address] [place] [address] * (ABNORMAL) POCT glucose meter (11/12/2024 8:27 [...] Comment 11/12/2024 8:29 PM EDT [facility] Cargo Services Coordinator ID Nelda Gerber 11/13/19 8:29 PM EDT [facility] Device ID [id number] 11/12/2024 8:29 PM EDT [facility] Specimen Type POC Capillary 11/12/2024 8:29 PM EDT [facility] Blood Capillary blood specimen / Unknown 11/12/2024 8:27 PM EDT 11/12/2024 8:29 PM EDT Nathaly Nowak MD LAB POINT OF CARE TE ST DOCKED DEVICE UNSOLICITED RESULTS Final Result Performing Organization Address City/[facility]/ZIP Co de Phone Number [facility] [address] [place] [address] * (ABNORMAL) POCT glucose meter (11/12/2024 5:08 [...] Comment 11/12/2024 5:10 PM EDT [facility] Cargo Services Coordinator ID Wade Feliciano 5:10 PM EDT [facility] Device ID [id number] 11/12/2024 5:10 PM EDT [facility] Specimen Type POC Capillary 11/12/2024 5:10 PM EDT [facility] Blood Capillary blood specimen / Unknown 11/12/2024 5:08 PM EDT 11/12/2024 5:10 PM EDT us Nathaly Nowak MD LAB POINT OF CARE TE ST DOCKED DEVICE UNSOLICITED RESULTS Final Result [facility] [address] [place] [address] * (ABNORMAL) POCT glucose meter (11/12/2024 12:36 [...] Comment 11/12/2024 12:38 PM EDT [facility] Cargo Services Coordinator ID Wade Feliciano 12:38 PM EDT [facility] Device ID [id number] 11/12/2024 12:38 PM EDT [facility] Specimen Type POC Capillary 11/12/2024 12:38 PM EDT [facility] Blood Capillary blood specimen / Unknown 11/12/2024 12:36 PM EDT 11/12/2024 12:38 PM EDT us Nathaly Nowak MD LAB POINT OF CARE TE ST DOCKED DEVICE UNSOLICITED RESULTS Final Result Performing Organization Address [facility] Co de Phone Number [facility] [address] [place] [address] * Clostridiodes (Clostridium) difficile PCR (11/12/2024 9:50 AM EDT) C difficile PCR toxin B gene DNA Result Not Detected Not Detected 11/12/2024 11:54 AM EDT [facility] Stool Rectum structure / Unknown Non-blood Collection / Unknown 11/12/2024 9:50 AM EDT 11/12/2024 10:04 AM EDT Narrative [facility] - 11/12/2024 11:54 AM EDT [...] [place]/ZIP Co de Phone Number [facility] [address] [place] [address] * Comprehensive GI Panel by PCR (11/12/2024 9:50 AM EDT) [facility] Campylobacter PCR Result Not Detected Not Detected 11/12/2024 2:47 PM EDT [facility] Plesiomonas shigelloides PCR Result Not Detected Not Detected 11/12/2024 2:47 PM EDT [facility] Salmonella PCR Result Not Detected Not Detected 11/12/2024 2:47 PM EDT [facility] Vibrio species PCR Result Not Detected Not Detected 11/12/2024 2:47 PM EDT [facility] Vibrio cholerae PCR Result Not Detected Not Detected 11/12/2024 2:47 PM EDT [facility] Yersinia enterocolitica PCR Result Not Detected Not Detected 11/12/2024 2:47 PM EDT [facility] Enteroaggregative E. coli (EAEC) PCR Result Not Detected Not Detected 11/12/2024 2:47 PM EDT [facility] Enteropathogenic E. coli (EPEC) PCR Result Not Detected Not Detected 11/12/2024 2:47 PM EDT [facility] Enterotoxigenic E. coli (ETEC) lt/st PCR Result Not Detected Not Detected 11/12/2024 2:47 PM EDT [facility] Shiga-like Toxin-Producing E.coli (STEC) stx1/stx2 PCR Resu Not Detected Not Detected 11/12/2024 2:47 PM EDT [facility] E coli 0157 PCR Result Not Detected Not Detected 11/12/2024 2:47 PM EDT [facility] Shigella/Enteroinvas tam E. coli (EIEC) PCR Result Not Detected Not Detected 11/12/2024 2:47 PM EDT [facility] Cryptosporidium PCR Result Not Detected Not Detected 11/12/2024 2:47 PM EDT [facility] Cyclospora cayetanensis PCR Result Not Detected Not Detected 11/12/2024 2:47 PM EDT [facility] Entamoeba histolytica PCR Result Not Detected Not Detected 11/12/2024 2:47 PM EDT [facility] Giardia duodenalis (aka Giardia lamblia) PCR Result Not Detected Not Detected 11/12/2024 2:47 PM EDT [facility] Adenovirus F 40/41 PCR Result Not Detected Not Detected 11/12/2024 2:47 PM EDT [facility] Astrovirus PCR Result Not Detected Not Detected 11/12/2024 2:47 PM EDT [facility] Norovirus GI/GII PCR Result Not Detected Not Detected 11/12/2024 2:47 PM EDT [facility] Rotavirus A PCR Result Not Detected Not Detected 11/12/2024 2:47 PM EDT [facility] Sapovirus PCR Result Not Detected Not Detected 11/12/2024 2:47 PM EDT [facility] Stool Rectum structure / Unknown Non-blood Collection / Unknown 11/12/2024 9:50 AM EDT 11/12/2024 10:04 AM EDT Narrative [facility] - 11/12/2024 2:47 PM EDT [...] MICROBIOLOGY - GENERAL ATIYA FRITZ Final Result [facility] [address] [place] [address] * C-reactive protein (11/12/2024 9:48 AM EDT) CRP, Plasma <3.0 <=8.0 mg/L 11/12/2024 10:28 AM EDT [facility] Blood Venous blood specimen / Unknown Venipuncture / Unknown 11/12/2024 9:48 AM EDT 11/12/2024 9:59 AM EDT Narrative [facility] - 11/12/2024 10:28 AM EDT This CRP test is appropriate for assessment of infection, systemic inflammation and/or tissue injury. To assess cardiovascular disease risk order high sensitivity CRP (CRPH). Nathaly Nowak MD LAB BLOOD ORDERABLES Final Resu lt [facility] [address] [place] [address] * (ABNORMAL) POCT glucose meter (11/12/2024 8:20 [...] Comment 11/12/2024 8:21 AM EDT [facility] Cargo Services Coordinator ID BradenWade 8:21 AM EDT [facility] Device ID [id number] 11/12/2024 8:21 AM EDT [facility] Specimen Type POC Capillary 11/12/2024 8:21 AM EDT [facility] Blood Capillary blood specimen / Unknown 11/12/2024 8:20 AM EDT 11/12/2024 8:21 AM EDT us Nathaly Nowak MD LAB POINT OF CARE TE ST DOCKED DEVICE UNSOLICITED RESULTS Final Result Performing Organization Address City/[facility]/ZIP Co de Phone Number [facility] [address] [place] [address] * (ABNORMAL) POCT glucose meter (11/11/2024 8:18 [...] Comment 11/11/2024 8:20 PM EDT [facility] Cargo Services Coordinator ID Nelda Gerber 11/12/19 8:20 PM EDT [facility] Device ID [id number] 11/11/2024 8:20 PM EDT [facility] Specimen Type POC Capillary 11/11/2024 8:20 PM EDT [facility] Blood Capillary blood specimen / Unknown 11/11/2024 8:18 PM EDT 11/11/2024 8:20 PM EDT Nathaly Nowak MD LAB POINT OF CARE TE ST DOCKED DEVICE UNSOLICITED RESULTS Final Result Performing Organization Address City/State/[facility] Co de Phone Number [facility] [address] [place] [address] * (ABNORMAL) POCT glucose meter (11/11/2024 5:59 PM EDT) [facility] POCT Glucose 147(H) 74 - 99 [...] Comment 11/11/2024 6:01 PM EDT [facility] Cargo Services Coordinator ID Wade Feliciano Tobias 6:01 PM EDT [facility] Device ID [id number] 11/11/2024 6:01 PM EDT [facility] Specimen Type POC Capillary 11/11/2024 6:01 PM EDT [facility] Blood Capillary blood specimen / Unknown 11/11/2024 5:59 PM EDT 11/11/2024 6:01 PM EDT Nathaly Nowak MD LAB POINT OF CARE TE ST DOCKED DEVICE UNSOLICITED RESULTS Final Result Performing Organization Address [facility] de Phone Number [facility] [address] [place] [address] * POCT glucose meter (11/11/2024 5:20 PM [...] Comment 11/11/2024 5:22 PM EDT [facility] Cargo Services Coordinator ID Wade Feliciano Tobias 5:22 PM EDT [facility] Device ID [id number] 11/11/2024 5:22 PM EDT [facility] Specimen Type POC Capillary 11/11/2024 5:22 PM EDT [facility] Blood Capillary blood specimen / Unknown 11/11/2024 5:20 PM EDT 11/11/2024 5:22 PM EDT us Nathaly Nowak MD LAB POINT OF CARE TE ST DOCKED DEVICE UNSOLICITED RESULTS Final Result Performing Organization Address City/[facility] de Phone Number [facility] [address] [place] [address] * SC NEGATIVE PRESSURE WOUND THERAPY DME >50 SQ [...] for testing. Comment 11/11/2024 12:10 PM EDT [facility] Cargo Services Coordinator ID Wade Feliciano 12:10 PM EDT [facility] Device ID [id number] 11/11/2024 12:10 PM EDT [facility] Specimen Type POC Capillary 11/11/2024 12:10 PM EDT [facility] Blood Capillary blood specimen / Unknown 11/11/2024 12:08 PM EDT 11/11/2024 12:10 PM EDT Nathaly Nowak MD LAB POINT OF CARE TE ST DOCKED DEVICE UNSOLICITED RESULTS Final Result [facility] [address] [place] [address] * (ABNORMAL) POCT glucose meter (11/11/2024 9:08 [...] Comment 11/11/2024 9:09 AM EDT [facility] Cargo Services Coordinator ID Braden Wade Collado 9:09 AM EDT [facility] Device ID [id number] 11/11/2024 9:09 AM EDT [facility] Specimen Type POC Capillary 11/11/2024 9:09 AM EDT [facility] Blood Capillary blood specimen / Unknown 11/11/2024 9:08 AM EDT 11/11/2024 9:09 AM EDT Nathaly Nowak MD LAB POINT OF CARE TE ST DOCKED DEVICE UNSOLICITED RESULTS Final Result Performing Organization Address City/State/[facility] Co de Phone Number [facility] [address] [place] [address] * POCT glucose meter (11/11/2024 8:27 AM EDT) [facility] POCT Glucose 87 74 - 99 [...] Comment 11/11/2024 8:28 AM EDT [facility] Cargo Services Coordinator ID BradenWade 8:28 AM EDT [facility] Device ID [id number] 11/11/2024 8:28 AM EDT [facility] Specimen Type POC Capillary 11/11/2024 8:28 AM EDT [facility] Blood Capillary blood specimen / Unknown 11/11/2024 8:27 AM EDT 11/11/2024 8:28 AM EDT Nathaly Nowak MD LAB POINT OF CARE TE ST DOCKED DEVICE UNSOLICITED RESULTS Final Result Performing Organization Address City/[facility]/ZIP Co de Phone Number [facility] [address] [place] [address] * (ABNORMAL) Basic Metabolic Panel, Plasma (11/11/2024 1:12 AM EDT) Glucose, Plasma 122(H) 74 - 99 mg/dL 11/11/2024 1:12 AM EDT [facility] BUN, Plasma 10 8 - 23 mg/dL 11/11/2024 1:12 AM EDT [facility] Creatinine, Plasma 0.82 0.70 - 1.20 mg/dL 11/11/2024 1:12 AM EDT [facility] BUN/Creatinine Ratio 12 11/11/2024 1:12 AM EDT [facility] Sodium, Plasma 137 136 - 145 mmol/L 11/11/2024 1:12 AM EDT [facility] Potassium, Plasma 3.9 3.6 - 4.9 mmol/L 11/11/2024 1:12 AM EDT [facility] Chloride, Plasma 110(H) 97 - 107 mmol/L 11/11/2024 1:12 AM EDT [facility] CO2, Plasma 20(L) 22 - 29 mmol/L 11/11/2024 1:12 AM EDT [facility] Anion Gap 7 6 - 16 mmol/L 11/11/2024 1:12 AM EDT [facility] Total Calcium, Plasma 7.6(L) 8.9 - 10.2 mg/dL 11/11/2024 1:12 AM EDT [facility] eGFRcr 97.5 mL/min/1.7 3m*2 11/11/2024 1:12 AM EDT [facility] Comment:Reported eGFRcr in m L/min/1.73m2 is based the CKD-EPI 2020 equation that does not use a race coefficient. Blood Venous blood specimen / Unknown 11/11/2024 12:42 AM EDT us Nathaly Nowak MD LAB BLOOD ORDERABLES Final Resu lt Performing Organization Address City/[facility]/ZIP Co de Phone Number [facility] [address] [place] [address] * (ABNORMAL) CBC W/O Differential (11/11/2024 12:56 AM EDT) WBC Count 11.83(H) 3.70 - 10.30 10*3/uL LAB HEMATOLOGY METHOD 11/11/2024 12:56 AM EDT [facility] RBC Count 2.97(L) 4.60 - 6.10 10*6/uL LAB HEMATOLOGY METHOD 11/11/2024 12:56 AM EDT [facility] HGB 8.9(L) 13.7 - 17.5 g/dL LAB HEMATOLOGY METHOD 11/11/2024 12:56 AM EDT [facility] HCT 27.2(L) 40.0 - 51.0 % LAB HEMATOLOGY METHOD 11/11/2024 12:56 AM EDT [facility] Platelet Count 444(H) 155 - 369 10*3/uL LAB HEMATOLOGY METHOD 11/11/2024 12:56 AM EDT [facility] MCV 92 79 - 98 fL LAB HEMATOLOGY METHOD 11/11/2024 12:56 AM EDT [facility] MCH 30.0 26.0 - 32.0 pg LAB HEMATOLOGY METHOD 11/11/2024 12:56 AM EDT [facility] MCHC 32.7 30.7 - 35.5 g/dL LAB HEMATOLOGY METHOD 11/11/2024 12:56 AM EDT [facility] RDW 13.3 11.5 - 14.5 % LAB HEMATOLOGY METHOD 11/11/2024 12:56 AM EDT [facility] MPV 9.0 8.8 - 12.5 fL LAB HEMATOLOGY METHOD 11/11/2024 12:56 AM EDT [facility] nRBC 0.0 <=0.0 per 100 WBCs LAB HEMATOLOGY METHOD 11/11/2024 12:56 AM EDT [facility] Blood Venous blood specimen / Unknown 11/11/2024 12:42 AM EDT us Nathaly Nowak MD LAB BLOOD ORDERABLES Final Resu lt [facility] [address] [place] [address] * (ABNORMAL) POCT glucose meter (11/10/2024 8:25 PM EDT) [facility] POCT Glucose 144(H) 74 - 99 [...] 11/10/2024 8:28 PM EDT [facility] Cargo Services Coordinator ID Nelda Gerber 11/11/19 8:28 PM EDT [facility] Device ID [id number] 11/10/2024 8:28 PM EDT [facility] Specimen Type POC Capillary 11/10/2024 8:28 PM EDT [facility] Blood Capillary blood specimen / Unknown 11/10/2024 8:25 PM EDT 11/10/2024 8:28 PM EDT us Nathaly Nowak MD LAB POINT OF CARE TE ST DOCKED DEVICE UNSOLICITED RESULTS Final Result [facility] [address] [place] [address] * (ABNORMAL) POCT glucose meter (11/10/2024 4:45 PM EDT) [facility] POCT Glucose 155(H) 74 - 99 [...] 11/10/2024 4:47 PM EDT [facility] Cargo Services Coordinator ID Esperanza Parks 11/10/2024 4:47 PM EDT [facility] Device ID [id number] 11/10/2024 4:47 PM EDT [facility] Specimen Type POC Capillary 11/10/2024 4:47 PM EDT [facility] Blood Capillary blood specimen / Unknown 11/10/2024 4:45 PM EDT 11/10/2024 4:47 PM EDT Nathaly Nowak MD LAB POINT OF CARE TE ST DOCKED DEVICE UNSOLICITED RESULTS Final Result Performing Organization Address City/[facility] Co de Phone Number [facility] [address] [place] [address] * (ABNORMAL) POCT glucose meter (11/10/2024 12:13 [...] Comment 11/10/2024 12:14 PM EDT [facility] Cargo Services Coordinator ID Esperanza Parks 11/10/2024 12:14 PM EDT [facility] Device ID [id number] 11/10/2024 12:14 PM EDT [facility] Specimen Type POC Capillary 11/10/2024 12:14 PM EDT [facility] Blood Capillary blood specimen / Unknown 11/10/2024 12:13 PM EDT 11/10/2024 12:14 PM EDT us Nathaly Nowak MD LAB POINT OF CARE TE ST DOCKED DEVICE UNSOLICITED RESULTS Final Result Performing Organization Address City/[facility] Co de Phone Number [facility] [address] [place] [address] * Vancomycin, Peak, Plasma Please draw ~2 hours after 0800 dose of vancomycin finishes infusing. Consider obtaining level via peripheral stick. If peripheral stick is not feasible, please ensure that line is flushed well prior to drawing level. Than... (11/10/2024 10:56 AM EDT) [facility] Vancomycin, Peak, Plasma 23.8 20.0 - 40.0 ug/mL 11/10/2024 11:25 AM EDT [facility] Blood Venous blood specimen / Unknown Venipuncture / Unknown 11/10/2024 10:56 AM EDT 11/10/2024 11:00 AM EDT Narrative [facility] - 11/10/2024 11:25 AM EDT Therapeutic Peak level: 20-40ug/mL Supra-therapeutic Peak level: >40 ug/mL us Abigail Seay MD LAB BLOOD ORDERABLES Final Res ult Performing Organization Address [facility] Co de Phone Number [facility] [address] [place] [address] * (ABNORMAL) POCT glucose meter (11/10/2024 8:03 AM EDT) [facility] POCT Glucose 174(H) 74 - 99 [...] Comment 11/10/2024 8:04 AM EDT [facility] Cargo Services Coordinator ID Esperanza Parks 11/10/2024 8:04 AM EDT [facility] Device ID [id number] 11/10/2024 8:04 AM EDT [facility] Specimen Type POC Capillary 11/10/2024 8:04 AM EDT [facility] Blood Capillary blood specimen / Unknown 11/10/2024 8:03 AM EDT 11/10/2024 8:04 AM EDT us Nathaly Nowak MD LAB POINT OF CARE TE ST DOCKED DEVICE UNSOLICITED RESULTS Final Result Performing Organization Address City/[facility]/ZIP Co de Phone Number [facility] [address] [place] [address] * Vancomycin, Trough, Plasma Please draw ~30 minutes prior to dose due at 0800 on 11/10. Please do NOThold dose awaiting level to return. Consider obtaining level via peripheral stick. If peripheral stick is not feasible, please ensure that line is... (11/10/2024 7:27 AM EDT) Vancomycin, Trough, Plasma 16.2 10.0 - 20.0 ug/mL 11/10/2024 8:24 AM EDT [facility] Blood Venous blood specimen / Unknown Venipuncture / Unknown 11/10/2024 7:27 AM EDT 11/10/2024 7:51 AM EDT Narrative [facility] - 11/10/2024 8:24 AM EDT Therapeutic Trough level: 10-20ug/mL Supra-therapeutic Trough level: >20 ug/mL us Abigail Seay MD LAB BLOOD ORDERABLES Final Res ult [facility] [address] [place] [address] * (ABNORMAL) CBC and Differential (11/10/2024 12:31 AM EDT) WBC Count 10.80(H) 3.70 - 10.30 10*3/uL LAB HEMATOLOGY METHOD 11/10/2024 12:53 AM EDT [facility] RBC Count 3.06(L) 4.60 - 6.10 10*6/uL LAB HEMATOLOGY METHOD 11/10/2024 12:53 AM EDT [facility] HGB 9.1(L) 13.7 - 17.5 g/dL LAB HEMATOLOGY METHOD 11/10/2024 12:53 AM EDT [facility] HCT 28.0(L) 40.0 - 51.0 % LAB HEMATOLOGY METHOD 11/10/2024 12:53 AM EDT [facility] Platelet Count 501(H) 155 - 369 10*3/uL LAB HEMATOLOGY METHOD 11/10/2024 12:53 AM EDT [facility] MCV 92 79 - 98 fL LAB HEMATOLOGY METHOD 11/10/2024 12:53 AM EDT [facility] MCH 29.7 26.0 - 32.0 pg LAB HEMATOLOGY METHOD 11/10/2024 12:53 AM EDT [facility] MCHC 32.5 30.7 - 35.5 g/dL LAB HEMATOLOGY METHOD 11/10/2024 12:53 AM EDT [facility] RDW 13.2 11.5 - 14.5 % LAB HEMATOLOGY METHOD 11/10/2024 12:53 AM EDT [facility] MPV 8.8 8.8 - 12.5 fL LAB HEMATOLOGY METHOD 11/10/2024 12:53 AM EDT [facility] nRBC 0.0 <=0.0 per 100 WBCs LAB HEMATOLOGY METHOD 11/10/2024 12:53 AM EDT [facility] Differential Type Automated LAB HEMATOLOGY METHOD 11/10/2024 12:53 AM EDT [facility] Neutrophils % 77 % LAB HEMATOLOGY METHOD 11/10/2024 12:53 AM EDT [facility] Lymphocytes % 13 % LAB HEMATOLOGY METHOD 11/10/2024 12:53 AM EDT [facility] Monocytes % 8 % LAB HEMATOLOGY METHOD 11/10/2024 12:53 AM EDT [facility] Eosinophils % 1 % LAB HEMATOLOGY METHOD 11/10/2024 12:53 AM EDT [facility] Basophils % 0 % LAB HEMATOLOGY METHOD 11/10/2024 12:53 AM EDT [facility] Immature Granulocytes % 1 % LAB HEMATOLOGY METHOD 11/10/2024 12:53 AM EDT [facility] Neutrophils Absolute 8.32(H) 1.60 - 6.10 10*3/uL LAB HEMATOLOGY METHOD 11/10/2024 12:53 AM EDT [facility] Lymphocytes Absolute 1.40 1.20 - 3.90 10*3/uL LAB HEMATOLOGY METHOD 11/10/2024 12:53 AM EDT [facility] Monocytes Absolute 0.89 0.30 - 0.90 10*3/uL LAB HEMATOLOGY METHOD 11/10/2024 12:53 AM EDT [facility] Eosinophils Absolute 0.09 0.00 - 0.50 10*3/uL LAB HEMATOLOGY METHOD 11/10/2024 12:53 AM EDT [facility] Basophils Absolute 0.04 0.00 - 0.10 10*3/uL LAB HEMATOLOGY METHOD 11/10/2024 12:53 AM EDT [facility] Immature Granulocytes Absolute 0.06 0.00 - 0.06 10*3/uL LAB HEMATOLOGY METHOD 11/10/2024 12:53 AM EDT [facility] Blood Venous blood specimen / Unknown Venipuncture / Unknown 11/10/2024 12:31 AM EDT 11/10/2024 12:37 AM EDT Narrative [facility] - 11/10/2024 12:53 AM EDT Therapeutic decision making should be based on absolute values, rather than percentages. us Nathaly Nowak MD LAB BLOOD ORDERABLES Final Resu lt [facility] [address] [place] [address] * (ABNORMAL) Comprehensive Metabolic Panel, Plasma (11/10/2024 12:31 AM EDT) Glucose, Plasma 185(H) 74 - 99 mg/dL 11/10/2024 1:05 AM EDT [facility] BUN, Plasma 9 8 - 23 mg/dL 11/10/2024 1:05 AM EDT [facility] Creatinine, Plasma 0.72 0.70 - 1.20 mg/dL 11/10/2024 1:05 AM EDT [facility] BUN/Creatinine Ratio 13 11/10/2024 1:05 AM EDT [facility] Sodium, Plasma 135(L) 136 - 145 mmol/L 11/10/2024 1:05 AM EDT [facility] Potassium, Plasma 4.0 3.6 - 4.9 mmol/L 11/10/2024 1:05 AM EDT [facility] Chloride, Plasma 106 97 - 107 mmol/L 11/10/2024 1:05 AM EDT [facility] CO2, Plasma 19(L) 22 - 29 mmol/L 11/10/2024 1:05 AM EDT [facility] Anion Gap 10 6 - 16 mmol/L 11/10/2024 1:05 AM EDT [facility] Total Calcium, Plasma 7.8(L) 8.9 - 10.2 mg/dL 11/10/2024 1:05 AM EDT [facility] Total Protein 5.6(L) 6.3 - 7.9 g/dL 11/10/2024 1:05 AM EDT [facility] Albumin, Plasma 3.1(L) 3.5 - 5.2 g/dL 11/10/2024 1:05 AM EDT [facility] AST, Plasma 33 10 - 50 U/L 11/10/2024 1:05 AM EDT [facility] ALT, Plasma 25 10 - 50 U/L 11/10/2024 1:05 AM EDT [facility] Alkaline Phosphatase, Plasma 108 40 - 115 U/L 11/10/2024 1:05 AM EDT [facility] Total Bilirubin, Plasma <0.2(L) 0.2 - 1.1 mg/dL 11/10/2024 1:05 AM EDT [facility] eGFRcr 101.4 mL/min/1.7 3m*2 11/10/2024 1:05 AM EDT [facility] Comment:Reported eGFRcr in m L/min/1.73m2 is based the CKD-EPI 2020 equation that does not use a race coefficient. Blood Venous blood specimen / Unknown Venipuncture / Unknown 11/10/2024 12:31 AM EDT 11/10/2024 12:37 AM EDT us Nathaly Nowak MD LAB BLOOD ORDERABLES Final Resu lt [facility] [address] [place] [address] * (ABNORMAL) POCT glucose meter (11/09/2024 8:04 PM EDT) [facility] POCT Glucose 114(H) 74 - 99 mg/dL 11/09/2024 8:06 PM EDT [facility] Comment:Accuracy [...] Comment 11/09/2024 8:06 PM EDT [facility] Cargo Services Coordinator ID Maximiliano Hansen II 11/09/2024 8:06 PM EDT [facility] Device ID [id number] 11/09/2024 8:06 PM EDT [facility] Specimen Type POC Capillary 11/09/2024 8:06 PM EDT [facility] Blood Capillary blood specimen / Unknown 11/09/2024 8:04 PM EDT 11/09/2024 8:06 PM EDT us Nathaly Nowak MD LAB POINT OF CARE TE ST DOCKED DEVICE UNSOLICITED RESULTS Final Result Performing Organization Address City/[facility] Co de Phone Number [facility] [address] [place] [address] * (ABNORMAL) POCT glucose meter (11/09/2024 4:36 [...] Comment 11/09/2024 4:38 PM EDT [facility] Cargo Services Coordinator ID Kristian Sosa 11/09/2024 4:38 PM EDT [facility] Device ID [id number] 11/09/2024 4:38 PM EDT [facility] Specimen Type POC Capillary 11/09/2024 4:38 PM EDT [facility] Blood Capillary blood specimen / Unknown 11/09/2024 4:36 PM EDT 11/09/2024 4:38 PM EDT us Nathaly Nowak MD LAB POINT OF CARE TE ST DOCKED DEVICE UNSOLICITED RESULTS Final Result Performing Organization Address City/[facility]/ZIP Co de Phone Number [facility] [address] [place] [address] * PICC SINGLE LUMEN ([employer] LINK) (11/09/2024 1:11 PM EDT) Narrative Estefani Barraza RN - 11/09/2024 1:11 PM EDT Estefani Barraza RN 11/09/2024 1:12 PM Insert PICC line Date/Time: 11/09/2024 1:11 PM Performed by: Estefani Barraza RN Authorized by: Nathaly Nowak MD [place] Protocol: Verbal consent obtained?: Yes Written consent [...] selection rationale: Left pacemaker Catheter Lot #: [id number] Catheter car tracer: iLinc Catheter placed: Single lumen Catheter size: 4 [...] Comment 11/09/2024 11:51 AM EDT [facility] Cargo Services Coordinator ID Kristian Sosa 11/09/2024 11:51 AM EDT [facility] Device ID [id number] 11/09/2024 11:51 AM EDT [facility] Specimen Type POC Capillary 11/09/2024 11:51 AM EDT [facility] Blood Capillary blood specimen / Unknown 11/09/2024 11:50 AM EDT 11/09/2024 11:51 AM EDT Nathaly Nowak MD LAB POINT OF CARE TE ST DOCKED DEVICE UNSOLICITED RESULTS Final Result [facility] [address] [place] [address] * (ABNORMAL) POCT glucose meter (11/09/2024 8:14 AM EDT) [facility] POCT Glucose 153(H) 74 - 99 [...] Comment 11/09/2024 8:15 AM EDT [facility] Cargo Services Coordinator ID Kristian Sosa 11/09/2024 8:15 AM EDT [facility] Device ID [id number] 11/09/2024 8:15 AM EDT [facility] Specimen Type POC Capillary 11/09/2024 8:15 AM EDT [facility] Blood Capillary blood specimen / Unknown 11/09/2024 8:14 AM EDT 11/09/2024 8:15 AM EDT us Nathaly Nowak MD LAB POINT OF CARE TE ST DOCKED DEVICE UNSOLICITED RESULTS Final Result [facility] [address] [place] [address] * (ABNORMAL) CBC and Differential (11/09/2024 4:15 AM EDT) WBC Count 10.27 3.70 - 10.30 10*3/uL LAB HEMATOLOGY METHOD 11/09/2024 4:26 AM EDT [facility] RBC Count 3.14(L) 4.60 - 6.10 10*6/uL LAB HEMATOLOGY METHOD 11/09/2024 4:26 AM EDT [facility] HGB 9.2(L) 13.7 - 17.5 g/dL LAB HEMATOLOGY METHOD 11/09/2024 4:26 AM EDT [facility] HCT 28.3(L) 40.0 - 51.0 % LAB HEMATOLOGY METHOD 11/09/2024 4:26 AM EDT [facility] Platelet Count 468(H) 155 - 369 10*3/uL LAB HEMATOLOGY METHOD 11/09/2024 4:26 AM EDT [facility] MCV 90 79 - 98 fL LAB HEMATOLOGY METHOD 11/09/2024 4:26 AM EDT [facility] MCH 29.3 26.0 - 32.0 pg LAB HEMATOLOGY METHOD 11/09/2024 4:26 AM EDT [facility] MCHC 32.5 30.7 - 35.5 g/dL LAB HEMATOLOGY METHOD 11/09/2024 4:26 AM EDT [facility] RDW 13.1 11.5 - 14.5 % LAB HEMATOLOGY METHOD 11/09/2024 4:26 AM EDT [facility] MPV 8.7(L) 8.8 - 12.5 fL LAB HEMATOLOGY METHOD 11/09/2024 4:26 AM EDT [facility] nRBC 0.0 <=0.0 per 100 WBCs LAB HEMATOLOGY METHOD 11/09/2024 4:26 AM EDT [facility] Differential Type Automated LAB HEMATOLOGY METHOD 11/09/2024 4:26 AM EDT [facility] Neutrophils % 77 % LAB HEMATOLOGY METHOD 11/09/2024 4:26 AM EDT [facility] Lymphocytes % 13 % LAB HEMATOLOGY METHOD 11/09/2024 4:26 AM EDT [facility] Monocytes % 8 % LAB HEMATOLOGY METHOD 11/09/2024 4:26 AM EDT [facility] Eosinophils % 1 % LAB HEMATOLOGY METHOD 11/09/2024 4:26 AM EDT [facility] Basophils % 0 % LAB HEMATOLOGY METHOD 11/09/2024 4:26 AM EDT [facility] Immature Granulocytes % 1 % LAB HEMATOLOGY METHOD 11/09/2024 4:26 AM EDT [facility] Neutrophils Absolute 7.97(H) 1.60 - 6.10 10*3/uL LAB HEMATOLOGY METHOD 11/09/2024 4:26 AM EDT [facility] Lymphocytes Absolute 1.32 1.20 - 3.90 10*3/uL LAB HEMATOLOGY METHOD 11/09/2024 4:26 AM EDT [facility] Monocytes Absolute 0.83 0.30 - 0.90 10*3/uL LAB HEMATOLOGY METHOD 11/09/2024 4:26 AM EDT [facility] Eosinophils Absolute 0.07 0.00 - 0.50 10*3/uL LAB HEMATOLOGY METHOD 11/09/2024 4:26 AM EDT [facility] Basophils Absolute 0.03 0.00 - 0.10 10*3/uL LAB HEMATOLOGY METHOD 11/09/2024 4:26 AM EDT [facility] Immature Granulocytes Absolute 0.05 0.00 - 0.06 10*3/uL LAB HEMATOLOGY METHOD 11/09/2024 4:26 AM EDT [facility] Blood Venous blood specimen / Unknown Venipuncture / Unknown 11/09/2024 4:15 AM EDT 11/09/2024 4:18 AM EDT [facility] - 11/09/2024 4:26 AM EDT Therapeutic decision making should be based on absolute values, rather than percentages. us Nathaly Nowak MD LAB BLOOD ORDERABLES Final Resu lt [facility] [address] [place] [id number] * (ABNORMAL) Comprehensive Metabolic Panel, Plasma (11/09/2024 4:15 AM EDT) Glucose, Plasma 171(H) 74 - 99 mg/dL 11/09/2024 4:47 AM EDT [facility] BUN, Plasma 9 8 - 23 mg/dL 11/09/2024 4:47 AM EDT [facility] Creatinine, Plasma 0.67(L) 0.70 - 1.20 mg/dL 11/09/2024 4:47 AM EDT [facility] BUN/Creatinine Ratio 13 11/09/2024 4:47 AM EDT [facility] Sodium, Plasma 134(L) 136 - 145 mmol/L 11/09/2024 4:47 AM EDT [facility] Potassium, Plasma 4.1 3.6 - 4.9 mmol/L 11/09/2024 4:47 AM EDT [facility] Chloride, Plasma 104 97 - 107 mmol/L 11/09/2024 4:47 AM EDT [facility] CO2, Plasma 21(L) 22 - 29 mmol/L 11/09/2024 4:47 AM EDT [facility] Anion Gap 9 6 - 16 mmol/L 11/09/2024 4:47 AM EDT [facility] Total Calcium, Plasma 8.4(L) 8.9 - 10.2 mg/dL 11/09/2024 4:47 AM EDT [facility] Total Protein 5.8(L) 6.3 - 7.9 g/dL 11/09/2024 4:47 AM EDT [facility] Albumin, Plasma 3.2(L) 3.5 - 5.2 g/dL 11/09/2024 4:47 AM EDT [facility] AST, Plasma 18 10 - 50 U/L 11/09/2024 4:47 AM EDT [facility] ALT, Plasma 17 10 - 50 U/L 11/09/2024 4:47 AM EDT [facility] Alkaline Phosphatase, Plasma 110 40 - 115 U/L 11/09/2024 4:47 AM EDT [facility] Total Bilirubin, Plasma <0.2(L) 0.2 - 1.1 mg/dL 11/09/2024 4:47 AM EDT [facility] eGFRcr 103.6 mL/min/1.7 3m*2 11/09/2024 4:47 AM EDT [facility] Comment:Reported eGFRcr in m L/min/1.73m2 is based the CKD-EPI 2020 equation that does not use a race coefficient. Blood Venous blood specimen / Unknown Venipuncture / Unknown 11/09/2024 4:15 AM EDT 11/09/2024 4:18 AM EDT us Nathaly Nowak MD LAB BLOOD ORDERABLES Final Resu lt [facility] [address] [place] [address] * (ABNORMAL) POCT glucose meter (11/09/2024 3:30 [...] Comment 11/09/2024 3:31 AM EDT [facility] Cargo Services Coordinator ID Maximiliano Hansen II 11/09/2024 3:31 AM EDT [facility] Device ID [id number] 11/09/2024 3:31 AM EDT [facility] Specimen Type POC Capillary 11/09/2024 3:31 AM EDT [facility] Blood Capillary blood specimen / Unknown 11/09/2024 3:30 AM EDT 11/09/2024 3:31 AM EDT us Nathaly Nowak MD LAB POINT OF CARE TE ST DOCKED DEVICE UNSOLICITED RESULTS Final Result Performing Organization Address City/[facility]/ZIP Co de Phone Number [facility] [address] [place] [address] * (ABNORMAL) POCT glucose meter (11/08/2024 7:21 PM EDT) [facility] POCT Glucose 292(H) 74 - 99 [...] Comment 11/08/2024 7:22 PM EDT [facility] Cargo Services Coordinator ID Maximiliano Hansen II 11/08/2024 7:22 PM EDT [facility] Device ID [id number] 11/08/2024 7:22 PM EDT [facility] Specimen Type POC Capillary 11/08/2024 7:22 PM EDT [facility] Blood Capillary blood specimen / Unknown 11/08/2024 7:21 PM EDT 11/08/2024 7:22 PM EDT Nathaly Nowak MD LAB POINT OF CARE TE ST DOCKED DEVICE UNSOLICITED RESULTS Final Result Performing Organization Address City/[facility] Co de Phone Number [facility] [address] [place] [address] * (ABNORMAL) POCT glucose meter (11/08/2024 5:12 PM EDT) [facility] POCT Glucose 178(H) 74 - 99 [...] 11/08/2024 5:14 PM EDT [facility] Cargo Services Coordinator ID ShethLindaEstefani L 11/08/2024 5:14 PM EDT [facility] Device ID [id number] 11/08/2024 5:14 PM EDT [facility] Specimen Type POC Capillary 11/08/2024 5:14 PM EDT [facility] Blood Capillary blood specimen / Unknown 11/08/2024 5:12 PM EDT 11/08/2024 5:14 PM EDT Nathaly Nowak MD LAB POINT OF CARE TE ST DOCKED DEVICE UNSOLICITED RESULTS Final Result Performing Organization Address City/[facility]/ZIP Co de Phone Number [facility] [address] [place] [address] * (ABNORMAL) POCT glucose meter (11/08/2024 12:03 [...] Comment 11/08/2024 12:05 PM EDT [facility] Cargo Services Coordinator ID Estefani Sheth 11/08/2024 12:05 PM EDT [facility] Device ID [id number] 11/08/2024 12:05 PM EDT [facility] Specimen Type POC Capillary 11/08/2024 12:05 PM EDT [facility] Blood Capillary blood specimen / Unknown 11/08/2024 12:03 PM EDT 11/08/2024 12:05 PM EDT us Nathaly Nowak MD LAB POINT OF CARE TE ST DOCKED DEVICE UNSOLICITED RESULTS Final Result Performing Organization Address [facility]/ZIP Co de Phone Number [facility] [address] [place] [address] * Vancomycin, Peak, Plasma Please draw ~2 hours after 11/08 0600 dose of vancomycin finishes infusing.Consider obtaining level via peripheral stick. If peripheral stick is not feasible, please ensure that line is flushed well prior to drawing level.... (11/08/2024 9:24 AM EDT) [facility] Vancomycin, Peak, Plasma 29.1 20.0 - 40.0 ug/mL 11/08/2024 10:31 AM EDT [facility] Blood Venous blood specimen / Unknown Venipuncture / Unknown 11/08/2024 9:24 AM EDT 11/08/2024 9:47 AM EDT Narrative [facility] - 11/08/2024 10:31 AM EDT Therapeutic Peak level: 20-40ug/mL Supra-therapeutic Peak level: >40 ug/mL us Nathaly Nowak MD LAB BLOOD ORDERABLES Final Resu lt [facility] [address] [place] [address] * (ABNORMAL) POCT glucose meter (11/08/2024 8:00 AM EDT) [facility] POCT Glucose 150(H) 74 - 99 [...] Comment 11/08/2024 8:01 AM EDT [facility] Cargo Services Coordinator ID Estefani Sheth 11/08/2024 8:01 AM EDT [facility] Device ID [id number] 11/08/2024 8:01 AM EDT [facility] Specimen Type POC Capillary 11/08/2024 8:01 AM EDT [facility] Blood Capillary blood specimen / Unknown 11/08/2024 8:00 AM EDT 11/08/2024 8:01 AM EDT us Nathaly Nowak MD LAB POINT OF CARE TE ST DOCKED DEVICE UNSOLICITED RESULTS Final Result [facility] [address] [place] [address] * (ABNORMAL) CBC and Differential (11/08/2024 4:39 AM EDT) WBC Count 9.18 3.70 - 10.30 10*3/uL LAB HEMATOLOGY METHOD 11/08/2024 4:58 AM EDT [facility] RBC Count 3.11(L) 4.60 - 6.10 10*6/uL LAB HEMATOLOGY METHOD 11/08/2024 4:58 AM EDT [facility] HGB 9.2(L) 13.7 - 17.5 g/dL LAB HEMATOLOGY METHOD 11/08/2024 4:58 AM EDT [facility] HCT 28.9(L) 40.0 - 51.0 % LAB HEMATOLOGY METHOD 11/08/2024 4:58 AM EDT [facility] Platelet Count 485(H) 155 - 369 10*3/uL LAB HEMATOLOGY METHOD 11/08/2024 4:58 AM EDT [facility] MCV 93 79 - 98 fL LAB HEMATOLOGY METHOD 11/08/2024 4:58 AM EDT [facility] MCH 29.6 26.0 - 32.0 pg LAB HEMATOLOGY METHOD 11/08/2024 4:58 AM EDT [facility] MCHC 31.8 30.7 - 35.5 g/dL LAB HEMATOLOGY METHOD 11/08/2024 4:58 AM EDT [facility] RDW 13.0 11.5 - 14.5 % LAB HEMATOLOGY METHOD 11/08/2024 4:58 AM EDT [facility] MPV 8.8 8.8 - 12.5 fL LAB HEMATOLOGY METHOD 11/08/2024 4:58 AM EDT [facility] nRBC 0.0 <=0.0 per 100 WBCs LAB HEMATOLOGY METHOD 11/08/2024 4:58 AM EDT [facility] Differential Type Automated LAB HEMATOLOGY METHOD 11/08/2024 4:58 AM EDT [facility] Neutrophils % 69 % LAB HEMATOLOGY METHOD 11/08/2024 4:58 AM EDT [facility] Lymphocytes % 17 % LAB HEMATOLOGY METHOD 11/08/2024 4:58 AM EDT [facility] Monocytes % 10 % LAB HEMATOLOGY METHOD 11/08/2024 4:58 AM EDT [facility] Eosinophils % 2 % LAB HEMATOLOGY METHOD 11/08/2024 4:58 AM EDT [facility] Basophils % 1 % LAB HEMATOLOGY METHOD 11/08/2024 4:58 AM EDT [facility] Immature Granulocytes % 1 % LAB HEMATOLOGY METHOD 11/08/2024 4:58 AM EDT [facility] Neutrophils Absolute 6.40(H) 1.60 - 6.10 10*3/uL LAB HEMATOLOGY METHOD 11/08/2024 4:58 AM EDT [facility] Lymphocytes Absolute 1.59 1.20 - 3.90 10*3/uL LAB HEMATOLOGY METHOD 11/08/2024 4:58 AM EDT [facility] Monocytes Absolute 0.87 0.30 - 0.90 10*3/uL LAB HEMATOLOGY METHOD 11/08/2024 4:58 AM EDT [facility] Eosinophils Absolute 0.22 0.00 - 0.50 10*3/uL LAB HEMATOLOGY METHOD 11/08/2024 4:58 AM EDT [facility] Basophils Absolute 0.05 0.00 - 0.10 10*3/uL LAB HEMATOLOGY METHOD 11/08/2024 4:58 AM EDT [facility] Immature Granulocytes Absolute 0.05 0.00 - 0.06 10*3/uL LAB HEMATOLOGY METHOD 11/08/2024 4:58 AM EDT [facility] Blood Venous blood specimen / Unknown Venipuncture / Unknown 11/08/2024 4:39 AM EDT 11/08/2024 4:49 AM EDT Narrative [facility] - 11/08/2024 4:58 AM EDT Therapeutic decision making should be based on absolute values, rather than percentages. us Nathaly Nowak MD LAB BLOOD ORDERABLES Final Resu lt [facility] [address] [place] [address] * (ABNORMAL) Comprehensive Metabolic Panel, Plasma (11/08/2024 4:39 AM EDT) Glucose, Plasma 255(H) 74 - 99 mg/dL 11/08/2024 5:20 AM EDT [facility] BUN, Plasma 10 8 - 23 mg/dL 11/08/2024 5:20 AM EDT [facility] Creatinine, Plasma 0.75 0.70 - 1.20 mg/dL 11/08/2024 5:20 AM EDT [facility] BUN/Creatinine Ratio 13 11/08/2024 5:20 AM EDT [facility] Sodium, Plasma 133(L) 136 - 145 mmol/L 11/08/2024 5:20 AM EDT [facility] Potassium, Plasma 5.2(H) 3.6 - 4.9 mmol/L 11/08/2024 5:20 AM EDT [facility] Chloride, Plasma 105 97 - 107 mmol/L 11/08/2024 5:20 AM EDT [facility] CO2, Plasma 20(L) 22 - 29 mmol/L 11/08/2024 5:20 AM EDT [facility] Anion Gap 8 6 - 16 mmol/L 11/08/2024 5:20 AM EDT [facility] Total Calcium, Plasma 7.7(L) 8.9 - 10.2 mg/dL 11/08/2024 5:20 AM EDT [facility] Total Protein 5.6(L) 6.3 - 7.9 g/dL 11/08/2024 5:20 AM EDT [facility] Albumin, Plasma 2.8(L) 3.5 - 5.2 g/dL 11/08/2024 5:20 AM EDT [facility] AST, Plasma 20 10 - 50 U/L 11/08/2024 5:20 AM EDT [facility] Comment:Hemolyzed, result ma y be falsely increased. ALT, Plasma 14 10 - 50 U/L 11/08/2024 5:20 AM EDT [facility] Alkaline Phosphatase, Plasma 119(H) 40 - 115 U/L 11/08/2024 5:20 AM EDT [facility] Total Bilirubin, Plasma <0.2(L) 0.2 - 1.1 mg/dL 11/08/2024 5:20 AM EDT [facility] eGFRcr 100.1 mL/min/1.7 3m*2 11/08/2024 5:20 AM EDT [facility] Comment:Reported eGFRcr in m L/min/1.73m2 is based the CKD-EPI 2020 equation that does not use a race coefficient. Blood Venous blood specimen / Unknown Venipuncture / Unknown 11/08/2024 4:39 AM EDT 11/08/2024 4:43 AM EDT us Nathaly Nowak MD LAB BLOOD ORDERABLES Final Resu lt [facility] [address] [place] [address] * Vancomycin, Trough, Plasma Please draw ~30 minutes prior to dose due at 0600 on 11/08. Please do NOThold dose awaiting level to return. Consider obtaining level via peripheral stick. If peripheral stick is not feasible, please ensure that line is... (11/08/2024 4:39 AM EDT) Pathologist [facility] Vancomycin, Trough, Plasma 18.7 10.0 - 20.0 ug/mL 11/08/2024 5:22 AM EDT [facility] Blood Venous blood specimen / Unknown Venipuncture / Unknown 11/08/2024 4:39 AM EDT 11/08/2024 4:43 AM EDT Narrative [facility] - 11/08/2024 5:22 AM EDT Therapeutic Trough level: 10-20ug/mL Supra-therapeutic Trough level: >20 ug/mL us Nathaly Nowak MD LAB BLOOD ORDERABLES Final Resu lt [facility] [address] [place] [address] * (ABNORMAL) POCT glucose meter (11/07/2024 7:26 PM EDT) POCT Glucose 172(H) 74 - 99 mg/dL 11/07/2024 7:28 PM EDT [facility] Comment:Accuracy of a glucos e result [...] Comment 11/07/2024 7:28 PM EDT [facility] Cargo Services Coordinator ID Maximiliano Hansen II 11/07/2024 7:28 PM EDT [facility] Device ID [id number] 11/07/2024 7:28 PM EDT [facility] Specimen Type POC Capillary 11/07/2024 7:28 PM EDT [facility] Blood Capillary blood specimen / Unknown 11/07/2024 7:26 PM EDT 11/07/2024 7:28 PM EDT us Nathaly Nowak MD LAB POINT OF CARE TE ST DOCKED DEVICE UNSOLICITED RESULTS Final Result Performing Organization Address City/State/[facility] Co de Phone Number [facility] [address] [place] [address] * (ABNORMAL) POCT glucose meter (11/07/2024 5:51 [...] 11/07/2024 5:52 PM EDT [facility] Cargo Services Coordinator ID Brigitte Castellon 11/07/2024 5:52 PM EDT [facility] Device ID [id number] 11/07/2024 5:52 PM EDT [facility] Specimen Type POC Capillary 11/07/2024 5:52 PM EDT [facility] Blood Capillary blood specimen / Unknown 11/07/2024 5:51 PM EDT 11/07/2024 5:52 PM EDT Nathaly Nowak MD LAB POINT OF CARE TE ST DOCKED DEVICE UNSOLICITED RESULTS Final Result Performing Organization Address City/[facility] Co de Phone Number [facility] [address] [place] [address] * (ABNORMAL) POCT glucose meter (11/07/2024 4:47 [...] for testing. Comment 11/07/2024 4:48 PM EDT [facility] Cargo Services Coordinator ID Estefani Sheth 11/07/2024 4:48 PM EDT [facility] Device ID [id number] 11/07/2024 4:48 PM EDT [facility] Specimen Type POC Capillary 11/07/2024 4:48 PM EDT [facility] Blood Capillary blood specimen / Unknown 11/07/2024 4:47 PM EDT 11/07/2024 4:48 PM EDT Nathaly Nowak MD LAB POINT OF CARE TE ST DOCKED DEVICE UNSOLICITED RESULTS Final Result Performing Organization Address City/[facility] Co de Phone Number [facility] [address] [place] [address] * (ABNORMAL) POCT glucose meter (11/07/2024 12:22 [...] Comment 11/07/2024 12:24 PM EDT [facility] Cargo Services Coordinator ID Estefani Sheth 11/07/2024 12:24 PM EDT [facility] Device ID [id number] 11/07/2024 12:24 PM EDT [facility] Specimen Type POC Capillary 11/07/2024 12:24 PM EDT [facility] Blood Capillary blood specimen / Unknown 11/07/2024 12:22 PM EDT 11/07/2024 12:24 PM EDT us Nathaly Nowak MD LAB POINT OF CARE TE ST DOCKED DEVICE UNSOLICITED RESULTS Final Result [facility] [address] [place] [id number] * (ABNORMAL) CBC and Differential (11/07/2024 11:37 AM EDT) WBC Count 9.96 3.70 - 10.30 10*3/uL LAB HEMATOLOGY METHOD 11/07/2024 12:33 PM EDT [facility] RBC Count 2.81(L) 4.60 - 6.10 10*6/uL LAB HEMATOLOGY METHOD 11/07/2024 12:33 PM EDT [facility] HGB 8.5(L) 13.7 - 17.5 g/dL LAB HEMATOLOGY METHOD 11/07/2024 12:33 PM EDT [facility] HCT 26.0(L) 40.0 - 51.0 % LAB HEMATOLOGY METHOD 11/07/2024 12:33 PM EDT [facility] Platelet Count 524(H) 155 - 369 10*3/uL LAB HEMATOLOGY METHOD 11/07/2024 12:33 PM EDT [facility] MCV 93 79 - 98 fL LAB HEMATOLOGY METHOD 11/07/2024 12:33 PM EDT [facility] MCH 30.2 26.0 - 32.0 pg LAB HEMATOLOGY METHOD 11/07/2024 12:33 PM EDT [facility] MCHC 32.7 30.7 - 35.5 g/dL LAB HEMATOLOGY METHOD 11/07/2024 12:33 PM EDT [facility] RDW 13.1 11.5 - 14.5 % LAB HEMATOLOGY METHOD 11/07/2024 12:33 PM EDT [facility] MPV 9.0 8.8 - 12.5 fL LAB HEMATOLOGY METHOD 11/07/2024 12:33 PM EDT [facility] nRBC 0.0 <=0.0 per 100 WBCs LAB HEMATOLOGY METHOD 11/07/2024 12:33 PM EDT [facility] Differential Type Automated LAB HEMATOLOGY METHOD 11/07/2024 12:33 PM EDT [facility] Neutrophils % 72 % LAB HEMATOLOGY METHOD 11/07/2024 12:33 PM EDT [facility] Lymphocytes % 17 % LAB HEMATOLOGY METHOD 11/07/2024 12:33 PM EDT [facility] Monocytes % 9 % LAB HEMATOLOGY METHOD 11/07/2024 12:33 PM EDT [facility] Eosinophils % 1 % LAB HEMATOLOGY METHOD 11/07/2024 12:33 PM EDT [facility] Basophils % 1 % LAB HEMATOLOGY METHOD 11/07/2024 12:33 PM EDT [facility] Immature Granulocytes % 0 % LAB HEMATOLOGY METHOD 11/07/2024 12:33 PM EDT [facility] Neutrophils Absolute 7.19(H) 1.60 - 6.10 10*3/uL LAB HEMATOLOGY METHOD 11/07/2024 12:33 PM EDT [facility] Lymphocytes Absolute 1.66 1.20 - 3.90 10*3/uL LAB HEMATOLOGY METHOD 11/07/2024 12:33 PM EDT [facility] Monocytes Absolute 0.88 0.30 - 0.90 10*3/uL LAB HEMATOLOGY METHOD 11/07/2024 12:33 PM EDT [facility] Eosinophils Absolute 0.14 0.00 - 0.50 10*3/uL LAB HEMATOLOGY METHOD 11/07/2024 12:33 PM EDT [facility] Basophils Absolute 0.05 0.00 - 0.10 10*3/uL LAB HEMATOLOGY METHOD 11/07/2024 12:33 PM EDT [facility] Immature Granulocytes Absolute 0.04 0.00 - 0.06 10*3/uL LAB HEMATOLOGY METHOD 11/07/2024 12:33 PM EDT [facility] Blood Venous blood specimen / Unknown Venipuncture / Unknown 11/07/2024 11:37 AM EDT 11/07/2024 12:24 PM EDT Narrative [facility] - 11/07/2024 12:33 PM EDT Therapeutic decision making should be based on absolute values, rather than percentages. us Nathaly Nowak MD LAB BLOOD ORDERABLES Final Resu lt [facility] [address] [place] [address] * (ABNORMAL) Comprehensive Metabolic Panel, Plasma (11/07/2024 11:37 AM EDT) Glucose, Plasma 173(H) 74 - 99 mg/dL 11/07/2024 1:31 PM EDT [facility] BUN, Plasma 13 8 - 23 mg/dL 11/07/2024 1:31 PM EDT [facility] Creatinine, Plasma 0.92 0.70 - 1.20 mg/dL 11/07/2024 1:31 PM EDT [facility] BUN/Creatinine Ratio 11/07/2024 1:31 PM EDT [facility] Sodium, Plasma 136 136 - 145 mmol/L 11/07/2024 1:31 PM EDT [facility] Potassium, Plasma 4.0 3.6 - 4.9 mmol/L 11/07/2024 1:31 PM EDT [facility] Chloride, Plasma 104 97 - 107 mmol/L 11/07/2024 1:31 PM EDT [facility] CO2, Plasma 23 22 - 29 mmol/L 11/07/2024 1:31 PM EDT [facility] Anion Gap 9 6 - 16 mmol/L 11/07/2024 1:31 PM EDT [facility] Total Calcium, Plasma 7.8(L) 8.9 - 10.2 mg/dL 11/07/2024 1:31 PM EDT [facility] Total Protein 5.7(L) 6.3 - 7.9 g/dL 11/07/2024 1:31 PM EDT [facility] Albumin, Plasma 3.0(L) 3.5 - 5.2 g/dL 11/07/2024 1:31 PM EDT [facility] AST, Plasma 15 10 - 50 U/L 11/07/2024 1:31 PM EDT [facility] ALT, Plasma 16 10 - 50 U/L 11/07/2024 1:31 PM EDT [facility] Alkaline Phosphatase, Plasma 119(H) 40 - 115 U/L 11/07/2024 1:31 PM EDT [facility] Total Bilirubin, Plasma <0.2(L) 0.2 - 1.1 mg/dL 11/07/2024 1:31 PM EDT [facility] eGFRcr 92.3 mL/min/1.7 3m*2 11/07/2024 1:31 PM EDT [facility] Comment:Reported eGFRcr in m L/min/1.73m2 is based the CKD-EPI 2020 equation that does not use a race coefficient. Blood Venous blood specimen / Unknown Venipuncture / Unknown 11/07/2024 11:37 AM EDT 11/07/2024 12:23 PM EDT us Nathaly Nowak MD LAB BLOOD ORDERABLES Final Resu lt [facility] [address] [place] [address] * Type and Screen (11/07/2024 11:37 AM [...] Co de Phone Number BLOOD BANK [address] [place] [address], * (ABNORMAL) POCT glucose meter (11/07/2024 10:34 [...] Comment 11/07/2024 10:36 AM EDT [facility] Cargo Services Coordinator ID Joy Iraheta 11/07/2024 10:36 AM EDT [facility] Device ID [id number] 11/07/2024 10:36 AM EDT [facility] Specimen Type POC Capillary 11/07/2024 10:36 AM EDT [facility] Blood Capillary blood specimen / Unknown 11/07/2024 10:34 AM EDT 11/07/2024 10:36 AM EDT us Nathaly Nowak MD LAB POINT OF CARE TE ST DOCKED DEVICE UNSOLICITED RESULTS Final Result Performing Organization Address City/State/[facility] Co de Phone Number [facility]ALTHCARE LAB [address] [place] [address] * (ABNORMAL) POCT glucose meter (11/07/2024 9:34 AM EDT) Pathologist [facility] [place] POCT Glucose 208(H) 74 - 99 mg/dL [...] Comment 11/07/2024 9:36 AM EDT [facility] Cargo Services Coordinator ID Brigitte Castellon 11/07/2024 9:36 AM EDT [facility] Device ID [id number] 11/07/2024 9:36 AM EDT [facility] Specimen Type POC Capillary 11/07/2024 9:36 AM EDT [facility] Blood Capillary blood specimen / Unknown 11/07/2024 9:34 AM EDT 11/07/2024 9:36 AM EDT Nathaly Nowak MD LAB POINT OF CARE TE ST DOCKED DEVICE UNSOLICITED RESULTS Final Result Performing Organization Address City/[facility]/ZIP Co de Phone Number [facility]ALTH[facility]ARE [facility] [address] [place] [address] * (ABNORMAL) POCT glucose meter (11/07/2024 8:20 [...] Comment 11/07/2024 8:22 AM EDT [facility] Cargo Services Coordinator ID Estefani Sheth 11/07/2024 8:22 AM EDT [facility] Device ID [id number] 11/07/2024 8:22 AM EDT [facility] Specimen Type POC Capillary 11/07/2024 8:22 AM EDT [facility] Blood Capillary blood specimen / Unknown 11/07/2024 8:20 AM EDT 11/07/2024 8:22 AM EDT us Nathaly Nowak MD LAB POINT OF CARE TE ST DOCKED DEVICE UNSOLICITED RESULTS Final Result Performing Organization Address City/[facility]/ZIP Co de Phone Number [facility] [address] [place] [address] * (ABNORMAL) POCT glucose meter (11/07/2024 7:21 [...] Comment 11/07/2024 7:22 AM EDT [facility] Cargo Services Coordinator ID Brigitte Castellon 11/07/2024 7:22 AM EDT [facility] Device ID [id number] 11/07/2024 7:22 AM EDT [facility] Specimen Type POC Capillary 11/07/2024 7:22 AM EDT [facility] Blood Capillary blood specimen / Unknown 11/07/2024 7:21 AM EDT 11/07/2024 7:22 AM EDT us Nathaly Nowak MD LAB POINT OF CARE TE ST DOCKED DEVICE UNSOLICITED RESULTS Final Result Performing Organization Address City/State/[facility] Co de Phone Number [facility]ARE LAB [address] [place] [address] * (ABNORMAL) POCT glucose meter (11/07/2024 6:25 [...] Comment 11/07/2024 6:27 AM EDT [facility] Cargo Services Coordinator ID Nelda Gerber 11/08/19 6:27 AM EDT [facility] Device ID [id number] 11/07/2024 6:27 AM EDT [facility] Specimen Type POC Capillary 11/07/2024 6:27 AM EDT [facility] Blood Capillary blood specimen / Unknown 11/07/2024 6:25 AM EDT 11/07/2024 6:27 AM EDT us Nathaly Nowak MD LAB POINT OF CARE TE ST DOCKED DEVICE UNSOLICITED RESULTS Final Result [facility] [address] [place] [address] * (ABNORMAL) POCT glucose meter (11/07/2024 5:03 [...] for testing. Comment 11/07/2024 5:08 AM EDT [facility] Cargo Services Coordinator ID Nelda Gerber 11/08/19 5:08 AM EDT [facility] Device ID [id number] 11/07/2024 5:08 AM EDT [facility] Specimen Type POC Capillary 11/07/2024 5:08 AM EDT [facility] Blood Capillary blood specimen / Unknown 11/07/2024 5:03 AM EDT 11/07/2024 5:08 AM EDT us Nathaly Nowak MD LAB POINT OF CARE TE ST DOCKED DEVICE UNSOLICITED RESULTS Final Result [facility] [address] [place] [address] * (ABNORMAL) POCT glucose meter (11/07/2024 4:16 [...] Comment 11/07/2024 4:18 AM EDT [facility] Cargo Services Coordinator ID Nelda Gerber 11/08/19 4:18 AM EDT [facility] Device ID [id number] 11/07/2024 4:18 AM EDT [facility] Specimen Type POC Capillary 11/07/2024 4:18 AM EDT [facility] Blood Capillary blood specimen / Unknown 11/07/2024 4:16 AM EDT 11/07/2024 4:18 AM EDT Nathaly Nowak MD LAB POINT OF CARE TE ST DOCKED DEVICE UNSOLICITED RESULTS Final Result Performing Organization Address City/[facility] Co de Phone Number [facility] [address] [place] [address] * (ABNORMAL) POCT glucose meter (11/07/2024 3:21 [...] Comment 11/07/2024 3:23 AM EDT [facility] Cargo Services Coordinator ID Nelda Gerber 11/08/19 3:23 AM EDT [facility] Device ID [id number] 11/07/2024 3:23 AM EDT [facility] Specimen Type POC Capillary 11/07/2024 3:23 AM EDT [facility] Blood Capillary blood specimen / Unknown 11/07/2024 3:21 AM EDT 11/07/2024 3:23 AM EDT Nathaly Nowak MD LAB POINT OF CARE TE ST DOCKED DEVICE UNSOLICITED RESULTS Final Result Performing Organization Address City/[facility]/ZIP Co de Phone Number [facility]ARE [facility] [address] [place] [address] * (ABNORMAL) POCT glucose meter (11/07/2024 2:10 AM EDT) [facility] POCT Glucose 146(H) 74 - 99 [...] for testing. Comment 11/07/2024 2:12 AM EDT [facility] Cargo Services Coordinator ID Nelda Gerber 11/08/19 2:12 AM EDT [facility] Device ID [id number] 11/07/2024 2:12 AM EDT [facility] Specimen Type POC Capillary 11/07/2024 2:12 AM EDT [facility] Blood Capillary blood specimen / Unknown 11/07/2024 2:10 AM EDT 11/07/2024 2:12 AM EDT us Nathaly Nowak MD LAB POINT OF CARE TE ST DOCKED DEVICE UNSOLICITED RESULTS Final Result Performing Organization Address City/State/[facility] Co de Phone Number [facility] [address] [place] [address] * (ABNORMAL) POCT glucose meter (11/07/2024 1:08 AM EDT) [facility] POCT Glucose 135(H) 74 - 99 [...] for testing. Comment 11/07/2024 1:10 AM EDT [facility] Cargo Services Coordinator ID Nelda Gerber 11/08/19 1:10 AM EDT [facility] Device ID [id number] 11/07/2024 1:10 AM EDT [facility] Specimen Type POC Capillary 11/07/2024 1:10 AM EDT [facility] Blood Capillary blood specimen / Unknown 11/07/2024 1:08 AM EDT 11/07/2024 1:10 AM EDT Nathaly Nowak MD LAB POINT OF CARE TE ST DOCKED DEVICE UNSOLICITED RESULTS Final Result Performing Organization Address City/[facility]/ZIP Co de Phone Number [facility] [address] [place] [address] * (ABNORMAL) POCT glucose meter (11/07/2024 12:10 [...] for testing. Comment 11/07/2024 12:13 AM EDT [facility] Cargo Services Coordinator ID Nelda Gerber 11/08/19 12:13 AM EDT [facility]ALTH[facility]ARE LAB Device ID [id number] 11/07/2024 12:13 AM EDT [facility] Specimen Type POC Capillary 11/07/2024 12:13 AM EDT [facility] Blood Capillary blood specimen / Unknown 11/07/2024 12:10 AM EDT 11/07/2024 12:13 AM EDT Nathaly Nowak MD LAB POINT OF CARE TE ST DOCKED DEVICE UNSOLICITED RESULTS Final Result [facility] [address] [place] [address] * (ABNORMAL) POCT glucose meter (11/06/2024 11:14 [...] Comment 11/06/2024 11:16 PM EDT [facility] Cargo Services Coordinator ID Nelda Gerber 11/07/19 11:16 PM EDT [facility] Device ID [id number] 11/06/2024 11:16 PM EDT [facility] Specimen Type POC Capillary 11/06/2024 11:16 PM EDT [facility] Blood Capillary blood specimen / Unknown 11/06/2024 11:14 PM EDT 11/06/2024 11:16 PM EDT Nathaly Nowak MD LAB POINT OF CARE TE ST DOCKED DEVICE UNSOLICITED RESULTS Final Result Performing Organization Address City/State/[facility] Co de Phone Number [facility] [address] [place] [address] * (ABNORMAL) POCT glucose meter (11/06/2024 10:07 [...] Comment 11/06/2024 10:09 PM EDT [facility] Cargo Services Coordinator ID Nelda Gerber 11/07/19 10:09 PM EDT [facility] Device ID [id number] 11/06/2024 10:09 PM EDT [facility] Specimen Type POC Capillary 11/06/2024 10:09 PM EDT [facility] Blood Capillary blood specimen / Unknown 11/06/2024 10:07 PM EDT 11/06/2024 10:09 PM EDT us Nathaly Nowak MD LAB POINT OF CARE TE ST DOCKED DEVICE UNSOLICITED RESULTS Final Result [facility] [address] [place] [address] * (ABNORMAL) POCT glucose meter (11/06/2024 8:22 PM EDT) [facility] POCT Glucose 256(H) 74 - 99 [...] for testing. Comment 11/06/2024 8:25 PM EDT [facility] Cargo Services Coordinator ID Nelda Gerber 11/07/19 8:25 PM EDT [facility]ALTH[facility] LAB Device ID [id number] 11/06/2024 8:25 PM EDT [facility] Specimen Type POC Capillary 11/06/2024 8:25 PM EDT [facility] Blood Capillary blood specimen / Unknown 11/06/2024 8:22 PM EDT 11/06/2024 8:25 PM EDT Nathaly Nowak MD LAB POINT OF CARE TE ST DOCKED DEVICE UNSOLICITED RESULTS Final Result Performing Organization Address City/[facility]/ZIP Co de Phone Number [facility] [address] [place] [address] * (ABNORMAL) POCT glucose meter (11/06/2024 7:31 PM EDT) [facility] POCT Glucose 359(H) 74 - 99 [...] Comment 11/06/2024 7:32 PM EDT [facility] Cargo Services Coordinator ID Nelda Gerber 11/07/19 7:32 PM EDT [facility] Device ID [id number] 11/06/2024 7:32 PM EDT [facility] Specimen Type POC Capillary 11/06/2024 7:32 PM EDT [facility] Blood Capillary blood specimen / Unknown 11/06/2024 7:31 PM EDT 11/06/2024 7:32 PM EDT Nathaly Nowak MD LAB POINT OF CARE TE ST DOCKED DEVICE UNSOLICITED RESULTS Final Result Performing Organization Address City/[facility]/ZIP Co de Phone Number [facility] [address] [place] [address] * (ABNORMAL) POCT glucose meter (11/06/2024 6:15 PM EDT) [facility] POCT Glucose 368(H) 74 - 99 [...] Comment 11/06/2024 6:17 PM EDT [facility] Cargo Services Coordinator ID Estefani Sheth 11/06/2024 6:17 PM EDT [facility] Device ID [id number] 11/06/2024 6:17 PM EDT [facility] Specimen Type POC Capillary 11/06/2024 6:17 PM EDT [facility] Blood Capillary blood specimen / Unknown 11/06/2024 6:15 PM EDT 11/06/2024 6:17 PM EDT us Nathaly Nowak MD LAB POINT OF CARE TE ST DOCKED DEVICE UNSOLICITED RESULTS Final Result [facility] [address] [place] [address] * (ABNORMAL) POCT glucose meter (11/06/2024 4:57 PM EDT) [facility] POCT Glucose 417(H) 74 - 99 [...] Comment 11/06/2024 4:58 PM EDT [facility] Cargo Services Coordinator ID Estefani Sheth 11/06/2024 4:58 PM EDT [facility] Device ID [id number] 11/06/2024 4:58 PM EDT [facility] Specimen Type POC Capillary 11/06/2024 4:58 PM EDT [facility] Blood Capillary blood specimen / Unknown 11/06/2024 4:57 PM EDT 11/06/2024 4:58 PM EDT Nathaly Nowak MD LAB POINT OF CARE TE ST DOCKED DEVICE UNSOLICITED RESULTS Final Result Performing Organization Address City/State/[facility] Co de Phone Number [facility]ARE [facility] [address] [place] [address] * (ABNORMAL) POCT glucose meter (11/06/2024 2:08 PM EDT) [facility] POCT Glucose 253(H) 74 - 99 [...] 11/06/2024 2:09 PM EDT [facility] Cargo Services Coordinator ID Brigitte Castellon 11/06/2024 2:09 PM EDT [facility] LAB Device ID [id number] 11/06/2024 2:09 PM EDT [facility] Specimen Type POC Capillary 11/06/2024 2:09 PM EDT [facility] Blood Capillary blood specimen / Unknown 11/06/2024 2:08 PM EDT 11/06/2024 2:09 PM EDT Nathaly Nowak MD LAB POINT OF CARE TE ST DOCKED DEVICE UNSOLICITED RESULTS Final Result Performing Organization Address City/[facility] de Phone Number HEALTHCARE LAB [address] [place] [address] * (ABNORMAL) POCT glucose meter (11/06/2024 12:27 PM EDT) Pathologist [facility] POCT Glucose 228(H) 74 - 99 mg/dL [...] Comment 11/06/2024 12:28 PM EDT [facility] Cargo Services Coordinator ID Jacinta Galloway 11/06/2024 12:28 PM EDT [facility] LAB Device ID [id number] 11/06/2024 12:28 PM EDT [facility] Specimen Type POC Capillary 11/06/2024 12:28 PM EDT [facility] Blood Capillary blood specimen / Unknown 11/06/2024 12:27 PM EDT 11/06/2024 12:28 PM EDT Nathaly Nowak MD LAB POINT OF CARE TE ST DOCKED DEVICE UNSOLICITED RESULTS Final Result Performing Organization Address City/[facility] Co de Phone Number [facility]ARE [facility] [address] [place] [address] * (ABNORMAL) Tissue Culture and Gram Stain (11/06/2024 11:34 AM EDT) Pathologist [facility] Culture Moderate Growth 7:35 AM EDT [facility] Culture 2+ Enterobacter cloacae complex(A) ANGÉLICA 11/15/2024 7:35 AM EDT [facility] Comment: This isolate has been identified using the FDA Approved [employer] System The organism value for this result has been updated. These results have been appended to the previously preliminary verified report. Edited result: Previously reported as Gram Negative Jesus on 11/07/2024 at 1434 EDT. Culture 2+ Streptococcus mitis/oralis group(A) ANGÉLICA 11/15/2024 7:35 AM EDT [facility] Comment: This isolate has been identified using the FDA Approved [employer] System The organism value for this result has been updated. These results have been appended to the previously preliminary verified report. Culture 2+ Pasteurella stomatis(A) ANGÉLICA 11/15/2024 7:35 AM EDT [facility] Comment: This result was determined by [employer] tof mass spectrometry using the [employer] database and is for research use only. The organism value for this result has been updated. These results have been appended to the previously preliminary verified report. Gram Stain Result Few Gram negative rods(A) 11/15/2024 7:35 AM EDT [facility] Gram Stain Result Moderate Polymorphonuclear leukocytes(A) 11/15/2024 7:35 AM EDT [facility] Gram Stain Result Few Gram positive cocci in pairs(A) 11/15/2024 7:35 AM EDT [facility] Tissue Topography unknown / Unknown 11/06/2024 11:34 AM EDT 11/06/2024 12:18 PM EDT Comment:Pre-op diagnosis: Surgical wound infection [T81.49XA] Narrative [facility] - 11/15/2024 7:35 AM EDT [...] GENERAL ATIYA FRITZ Edited Result - Final [facility] [address] [place] [address] * (ABNORMAL) Anaerobic Culture (11/06/2024 11:34 AM EDT) Culture No anaerobes isolated 11/14/2024 1:25 PM EDT [facility] Culture Staphylococcus pseudintermedius( A) 11/14/2024 1:25 PM EDT [facility] Comment: This result was determined by [employer] tof mass spectrometry using the [employer] database and is for research use only. This is an appended report. These results have been appended to a previously final verified report. Tissue Topography unknown / Unknown 11/06/2024 11:34 AM EDT 11/06/2024 12:18 PM EDT Comment:Pre-op diagnosis: Surgical wound infection [T81.49XA] Narrative [facility] - 11/14/2024 1:25 PM EDT [...] GENERAL ATIYA FRITZ Edited Result - Final [facility] [address] [place] [address] * (ABNORMAL) Routine Culture and Gram Stain (11/06/2024 11:29 AM EDT) Culture Moderate Growth 5:29 PM EDT [facility] Culture Enterobacter cloacae complex(A) 11/08/2024 5:29 PM EDT [facility] Comment: This isolate has been identified using the FDA Approved [employer] System For susceptibility results refer to: - [id number] The organism value for this result has been updated. These results have been appended to the previously preliminary verified report. Gram Stain Result No polymorphonuclear leukocytes seen 11/08/2024 5:29 PM EDT [facility] Gram Stain Result No organisms seen 11/08/2024 5:29 PM EDT [facility] Swab Topography unknown / Unknown 11/06/2024 11:29 AM EDT 11/06/2024 12:19 PM EDT Comment:Pre-op diagnosis: Surgical wound infection [T81.49XA] us Nathaly Nowak MD LAB MICROBIOLOGY - GENERAL ORDE [place] [address] * Fungal Culture, Routine (11/06/2024 11:29 AM EDT) Culture No Fungal Growth at 1 Week 11/13/2024 8:29 AM EDT [facility] Swab Topography unknown / Unknown 11/06/2024 11:29 AM EDT 11/06/2024 12:19 PM EDT Comment:Pre-op diagnosis: Surgical wound infection [T81.49XA] us Nathaly Nowak MD LAB MICROBIOLOGY - GENERAL ORDE RABONEIDA Final Result [facility] [address] [place] [address] * (ABNORMAL) Anaerobic Culture (11/06/2024 11:29 AM EDT) Culture No anaerobes isolated 11/14/2024 1:25 PM EDT [facility] Culture Streptococcus mitis/oralis group(A) 11/14/2024 1:25 PM EDT [facility] Comment: This result was determined by [employer] tof mass spectrometry using the [employer] database and is for research use only. The organism value for this result has been updated. These results have been appended to the previously preliminary verified report. This is a corrected result. Previous organism was Mixed skin clifton on 11/10/2024 at 0718 EDT. Culture Staphylococcus pseudintermedius( A) 11/14/2024 1:25 PM EDT [facility] Comment: This isolate has been identified using the FDA Approved [employer] System This is an appended report. These results have been appended to a previously final verified report. Swab Topography unknown / Unknown 11/06/2024 11:29 AM EDT 11/06/2024 12:19 PM EDT Comment:Pre-op diagnosis: Surgical wound infection [T81.49XA] Narrative [facility] - 11/14/2024 1:25 PM EDT [...] Edited Result - Final Performing Organization Address [facility]/ZIP Co de Phone Number [facility] [address] [place] [address] * Routine Culture and Gram Stain (11/06/2024 11:28 AM EDT) Culture No growth at day 4 2024 11:24 AM EDT [facility] Gram Stain Result No organisms seen 11/10/2024 11:24 AM EDT [facility] Gram Stain Result No polymorphonuclear leukocytes seen 11/10/2024 11:24 AM EDT [facility] Swab Topography unknown / Unknown 11/06/2024 11:28 AM EDT 11/06/2024 12:20 PM EDT Comment:Pre-op diagnosis: Surgical wound infection [T81.49XA] Nathaly Nowak MD LAB MICROBIOLOGY - GENERAL ATIYA FRITZ Final Result Performing Organization Address City/[facility] Co de Phone Number [facility] [address] [place] [address] * Fungal Culture, Routine (11/06/2024 11:28 AM EDT) Culture No Fungal Growth at 1 Week 11/13/2024 8:29 AM EDT [facility] Swab Topography unknown / Unknown 11/06/2024 11:28 AM EDT 11/06/2024 12:20 PM EDT Comment:Pre-op diagnosis: Surgical wound infection [T81.49XA] Nathaly Nowak MD LAB MICROBIOLOGY - GENERAL ORDE LAM Final Result Performing Organization Address City/[facility]/ZIP Co de Phone Number [facility] [address] [place] [address] * Anaerobic Culture (11/06/2024 11:28 AM EDT) Culture No growth at day 4 11/13/2024 12:53 PM EDT [facility] Swab Topography unknown / Unknown 11/06/2024 11:28 AM EDT 11/06/2024 12:20 PM EDT Comment:Pre-op diagnosis: Surgical wound infection [T81.49XA] Nathaly Nowak MD LAB MICROBIOLOGY - GENERAL ORDE RABLES Final Result Performing Organization Address City/[facility]/ZIP Co de Phone Number [facility] [address] [place] [address] * (ABNORMAL) POCT glucose meter (11/06/2024 10:16 [...] Comment 11/06/2024 10:18 AM EDT [facility] Cargo Services Coordinator ID Lacy Griffin 11/07/19 10:18 AM EDT [facility]ALTH[facility] Device ID [id number] 11/06/2024 10:18 AM EDT [facility] Specimen Type POC Capillary 11/06/2024 10:18 AM EDT [facility] Blood Capillary blood specimen / Unknown 11/06/2024 10:16 AM EDT 11/06/2024 10:18 AM EDT us Nathaly Nowak MD LAB POINT OF CARE TE ST DOCKED DEVICE UNSOLICITED RESULTS Final Result Performing Organization Address City/[facility]/ZIP Co de Phone Number [facility] [address] [place] [address] * (ABNORMAL) POCT glucose meter (11/06/2024 5:58 [...] 11/06/2024 6:01 AM EDT [facility] Cargo Services Coordinator ID Raj Laird 11/07/19 6:01 AM EDT [facility] Device ID [id number] 11/06/2024 6:01 AM EDT [facility] Specimen Type POC Capillary 11/06/2024 6:01 AM EDT [facility] Blood Capillary blood specimen / Unknown 11/06/2024 5:58 AM EDT 11/06/2024 6:01 AM EDT us Nathaly Nowak MD LAB POINT OF CARE TE ST DOCKED DEVICE UNSOLICITED RESULTS Final Result Performing Organization Address City/State/[facility] Co de Phone Number [facility] [address] [place] [address] * (ABNORMAL) POCT glucose meter (11/06/2024 5:36 AM EDT) [facility] POCT Glucose 202(H) 74 - 99 [...] 11/06/2024 5:38 AM EDT [facility] Cargo Services Coordinator ID Shahid Sanches 11/06/2024 5:38 AM EDT [facility] Device ID [id number] 11/06/2024 5:38 AM EDT [facility] Specimen Type POC Capillary 11/06/2024 5:38 AM EDT [facility] Blood Capillary blood specimen / Unknown 11/06/2024 5:36 AM EDT 11/06/2024 5:38 AM EDT us Nathaly Nowak MD LAB POINT OF CARE TE ST DOCKED DEVICE UNSOLICITED RESULTS Final Result Performing Organization Address City/[facility] Co de Phone Number [facility] [address] [place] [address] * (ABNORMAL) Hemoglobin A1c (11/06/2024 1:07 AM EDT) Hemoglobin A1c 7.6(H) <5.7 % 11/06/2024 11:09 AM EDT [facility] Blood Venous blood specimen / Unknown Venipuncture / Unknown 11/06/2024 1:07 AM EDT 11/06/2024 1:26 AM EDT Narrative [facility] - 11/06/2024 11:09 AM EDT HA1C Interpretive Data: Diagnosis of Diabetes: Diabetic > or = 6.5% Pre-diabetic 5.7 to 6.4% Non-diabetic < or = 5.6% Glycemic Targets for Type I and Type II Diabetics: Non- Adults <7.0% Adults <6.0% Children and Adolescents <7.5% Source: [employer]. Standards of medical care in diabetes,2017. Diabetes Care.2017:40 (suppl 1):S1-S135. us Nathaly Nowak MD LAB BLOOD ORDERABLES Final Resu lt Performing Organization Address [facility] Co de Phone Number [facility] [address] [place] [address] * Blood Culture (Aerobic/Anaerobet Set) (11/06/2024 1:07 AM EDT) Culture No growth at day 5 11/11/2024 2:49 AM EDT [facility] Blood Structure of right hand / Unknown Venipuncture / Unknown 11/06/2024 1:07 AM EDT 11/06/2024 2:36 AM EDT us Nathaly Nowak MD LAB MICROBIOLOGY - GENERAL ORDE RABLES Final Result Performing Organization Address City/[facility] Co de Phone Number [facility] [address] [place] [address] * Blood Culture (Aerobic/Anaerobet Set) (11/06/2024 1:07 AM EDT) Culture No growth at day 5 11/11/2024 3:01 AM EDT [facility] Blood Structure of antecubital vein / Unknown Venipuncture / Unknown 11/06/2024 1:07 AM EDT 11/06/2024 2:36 AM EDT us Nathaly Nowak MD LAB MICROBIOLOGY - GENERAL ORDE LAM Final Result [facility] [address] [place] [address] * (ABNORMAL) Basic metabolic panel (11/06/2024 1:07 AM EDT) Glucose, Plasma 207(H) 74 - 99 mg/dL 11/06/2024 1:41 AM EDT [facility] BUN, Plasma 20 8 - 23 mg/dL 11/06/2024 1:41 AM EDT [facility] Creatinine, Plasma 0.92 0.70 - 1.20 mg/dL 11/06/2024 1:41 AM EDT [facility] BUN/Creatinine Ratio 22 11/06/2024 1:41 AM EDT [facility] Sodium, Plasma 136 136 - 145 mmol/L 11/06/2024 1:41 AM EDT [facility] Potassium, Plasma 4.5 3.6 - 4.9 mmol/L 11/06/2024 1:41 AM EDT [facility] Chloride, Plasma 104 97 - 107 mmol/L 11/06/2024 1:41 AM EDT [facility] CO2, Plasma 22 22 - 29 mmol/L 11/06/2024 1:41 AM EDT [facility] Anion Gap 10 6 - 16 mmol/L 11/06/2024 1:41 AM EDT [facility] Total Calcium, Plasma 9.0 8.9 - 10.2 mg/dL 11/06/2024 1:41 AM EDT [facility] eGFRcr 92.3 mL/min/1.7 3m*2 11/06/2024 1:41 AM EDT [facility] Comment:Reported eGFRcr in m L/min/1.73m2 is based the CKD-EPI 2020 equation that does not use a race coefficient. Blood Venous blood specimen / Unknown Venipuncture / Unknown 11/06/2024 1:07 AM EDT 11/06/2024 1:12 AM EDT Nathaly Nowak MD LAB BLOOD ORDERABLES Final Resu lt Performing Organization Address City/[facility]/ZIP Co de Phone Number [facility] [address] [place] [address] * Phosphorus (11/06/2024 1:07 AM EDT) Phosphorus, Plasma 3.2 2.5 - 4.5 mg/dL 11/06/2024 1:41 AM EDT [facility] Blood Venous blood specimen / Unknown Venipuncture / Unknown 11/06/2024 1:07 AM EDT 11/06/2024 1:12 AM EDT Nathaly Nowak MD LAB BLOOD ORDERABLES Final Resu lt Performing Organization Address [facility] Co de Phone Number [facility] [address] [place] [address] * Magnesium (11/06/2024 1:07 AM EDT) Magnesium, Plasma 2.2 1.9 - 2.4 mg/dL 11/06/2024 1:41 AM EDT [facility] Blood Venous blood specimen / Unknown Venipuncture / Unknown 11/06/2024 1:07 AM EDT 11/06/2024 1:12 AM EDT Nathaly Nowak MD LAB BLOOD ORDERABLES Final Resu lt Performing Organization Address [facility] Co de Phone Number [facility] [address] [place] [address] * (ABNORMAL) CBC (11/06/2024 1:07 AM EDT) WBC Count 9.70 3.70 - 10.30 10*3/uL LAB HEMATOLOGY METHOD 11/06/2024 1:19 AM EDT [facility] RBC Count 2.89(L) 4.60 - 6.10 10*6/uL LAB HEMATOLOGY METHOD 11/06/2024 1:19 AM EDT [facility] HGB 8.8(L) 13.7 - 17.5 g/dL LAB HEMATOLOGY METHOD 11/06/2024 1:19 AM EDT [facility] HCT 26.2(L) 40.0 - 51.0 % LAB HEMATOLOGY METHOD 11/06/2024 1:19 AM EDT [facility] Platelet Count 542(H) 155 - 369 10*3/uL LAB HEMATOLOGY METHOD 11/06/2024 1:19 AM EDT [facility] MCV 91 79 - 98 fL LAB HEMATOLOGY METHOD 11/06/2024 1:19 AM EDT [facility] MCH 30.4 26.0 - 32.0 pg LAB HEMATOLOGY METHOD 11/06/2024 1:19 AM EDT [facility] MCHC 33.6 30.7 - 35.5 g/dL LAB HEMATOLOGY METHOD 11/06/2024 1:19 AM EDT [facility] RDW 13.2 11.5 - 14.5 % LAB HEMATOLOGY METHOD 11/06/2024 1:19 AM EDT [facility] MPV 8.7(L) 8.8 - 12.5 fL LAB HEMATOLOGY METHOD 11/06/2024 1:19 AM EDT [facility] nRBC 0.0 <=0.0 per 100 WBCs LAB HEMATOLOGY METHOD 11/06/2024 1:19 AM EDT [facility] Blood Venous blood specimen / Unknown Venipuncture / Unknown 11/06/2024 1:07 AM EDT 11/06/2024 1:12 AM EDT us Nathaly Nowak MD LAB BLOOD ORDERABLES Final Resu lt [facility] [address] [place] [address] * Gold Top (11/06/2024 12:58 AM EDT) Extra Hold for add-ons 11/06/2024 3:21 AM EDT [facility] Comment:Auto resulted. Blood Venous blood specimen / Unknown 11/06/2024 12:58 AM EDT 11/06/2024 1:13 AM EDT us Nathaly Nowak MD LAB BLOOD ORDERABLES Final Resu lt Performing Organization Address City/[facility]/ZIP Co de Phone Number [facility] [address] [place] [address] * Gold Top (11/06/2024 12:58 AM EDT) Extra Hold for add-ons 11/06/2024 3:21 AM EDT [facility] Comment:Auto resulted. Blood Venous blood specimen / Unknown 11/06/2024 12:58 AM EDT 11/06/2024 1:13 AM EDT us Nathaly Nowak MD LAB BLOOD ORDERABLES Final Resu lt Performing Organization Address [facility]/ZIP Co de Phone Number [facility] [address] [place] [address] * Light Green Top (11/06/2024 12:58 AM EDT) Extra Hold for add-ons 11/06/2024 3:21 AM EDT [facility] Comment:Auto resulted. Blood Venous blood specimen / Unknown 11/06/2024 12:58 AM EDT 11/06/2024 1:13 AM EDT us Nathaly Nowak MD LAB BLOOD ORDERABLES Final Resu lt Performing Organization Address City/[facility] Co de Phone Number [facility] [address] [place] [address] * Light Blue Top (11/06/2024 12:58 AM EDT) Extra Hold for add-ons 11/06/2024 3:21 AM EDT [facility] Comment:Auto resulted. Blood Venous blood specimen / Unknown 11/06/2024 12:58 AM EDT 11/06/2024 1:13 AM EDT Nathaly Nowak MD LAB BLOOD ORDERABLES Final Resu lt Performing Organization Address [facility] Co de Phone Number [facility] [address] [place] [address] * Light Blue Top (11/06/2024 12:58 AM EDT) Pathologist [facility] Extra Hold for add-ons 11/06/2024 3:21 AM EDT [facility] Comment:Auto resulted. Blood Venous blood specimen / Unknown 11/06/2024 12:58 AM EDT 11/06/2024 1:13 AM EDT Nathaly Nowak MD LAB BLOOD ORDERABLES Final Resu lt Performing Organization Address [facility] Phone Number [facility] [address] [place] [address] * (ABNORMAL) POCT glucose meter (11/06/2024 12:45 AM EDT) Pathologist [facility] POCT Glucose 204(H) 74 - 99 mg/dL [...] 11/06/2024 12:48 AM EDT [facility] Cargo Services Coordinator ID Raj Laird 11/07/19 25 12:48 AM EDT [facility] Device ID [id number] 11/06/2024 12:48 AM EDT [facility] Specimen Type POC Capillary 11/06/2024 12:48 AM EDT [facility] Blood Capillary blood specimen / Unknown 11/06/2024 12:45 AM EDT 11/06/2024 12:48 AM EDT us Nathaly Nowak MD LAB POINT OF CARE TE ST DOCKED DEVICE UNSOLICITED RESULTS Final Result [facility] [address] [place] [address] documented in this encounter Visit Diagnoses Diagnosis [...] needed, Starting on Mon11/06/24 at 0031, Until [facility] 11/14/24 at 1804, Routine, line care [...] needed, Starting on Mon11/06/24 at 0753, Until [facility] 11/14/24 at 1804, Routine, On Unit [...] 1 Application Irrigation, Daily, First dose on [facility] 11/09/24 at 0945, Until [...] Provider: Yazmin Bhatt, CHRISTIAN)1210 (Given - Provider: Yamzin Bhatt, CHRISTIAN)1730 (Canceled Entry - Provider: Automatic [...] Devora Bo)2122 (Given - Provider: Jonathan Vale, CHRITSIAN) 08 (Given - Provider: Devora Bo)2031 (Given [...] not finished) 0840 (Given - Provider: Devora oB) PRN Medication Order 11/12/2024 11/13/2024 11/14/2024 dextrose [...] documented as of this encounter Care Teams Usability Specialist Relationship Specialty Start Date End Date Asad Victor MD [address] [place] [address] BISI Marshall [id number] PCP - General 10/07/22 documented as of this encounter
--- OUTSIDE RECORDS SUMMARY | 2024-11-06 10:47 | XMS_ITS | Encounter Summary ---
Author Organization Healthcare Address [address] [place] [address] Care Team Providers Care Rn Women Services Name Role Phone Asad Victor MD Primary Care Provider + [phone] Reason for Visit * Auth/Cert (Routine) Specialty Diagnoses / Procedures Referred By Contac t Referred To Contact Diagnoses Wound infection Post-op Vasc Sx wounds - sx on 10/17 at Nathaly Nowak MD [address] [facility] [address] [place] [address] Phone: tel: fax: [facility] A Emergency Department [address] [place] [address] Phone: tel: Referral ID Status Reason Start Date Expiration Date Visits Re quested Visits Authorized [id number] 1 1 Encounter Details Date Type Department Care Team (Late st Contact Info) Description 11/06/2024 10:47 AM EDT Anesthesia Event [facility] OPERATING ROOM [address] [place] [address] Bill Sue MD [address] [place] [address] Sabrina Mckeon PA [address] [facility] [address] [place] [address] Anesthesia Record Procedure Summary Procedure [...] any time in the past 12 m [facility], were you homeless or living in [...] drink first t dino in the morning (EYE-CRYSTAL REPORT DEVELOPER) to steady your nerves or to [...] and Staff Patient location during procedure: OR POWER SCREWDRIVER OPERATOR: Asad Lechuga CRNA, DNP Performed: POWER SCREWDRIVER OPERATOR Patient Condition Indications for airway management: [...] placement (Left) Location: [facility] OR 16 / [place] OR Surgeons: Nathaly Nowak MD [facility] Mono Ana Bobby is a 64 [...] Abnormal Ventricular Rate 85 Atrial Rate 85 [place] Interval 146 QRSD Interval 128 QT Interval 390 QTC Interval 464 P [place] 52 R [place] 263 T Wave [place] 57 Diagnosis Atrial-sensed ventricular-paced rhythm Diagnosis Biventricular [...] is no recent study available for direct yjzy-kp-krcb comparison. [facility]: Pre-operative CIED Report Assessment and Sara- Procedural Reommendations: Name: Mono Bobby Date: 10/17/2024 : 1960 Age: 64 y.o. Patient has a Ballet Master/Mistress: Berger AIRFRAME AND POWERPLANT MECHANIC-PM Remaining battery longevity adequate. Lead [...] RVR s/p CABG), CAD (CAD s/p multiple MT's and 3V CABG02/2019, 2 stents prior to CABG), carotid artery disease (carotid artery disease s/p R CEA 2016), dysrhythmias (3rd degree AV block AIRFRAME AND POWERPLANT MECHANIC-P placed 08/2023 for Wenkeback with 11 sec pause), hyperlipidemia, pacemaker and PVD. Does not have angina, CHF, murmur, orthopnea, syncope or valvular heart disease. hypertension: Cardio additional comments: Follows with OSH Card last seen 09/25/24 ([place]) . Respiratory: home oxygen (2L). no asthma: [...] ENDARTERECTOMY N/A 2017 Endarterectomy Carotid Artery from [employer] CORONARY ANGIOPLASTY Left Coronary Angiography With Concomitant Left Heart Catheterization from [employer] CORONARY ARTERY BYPASS GRAFT N/A 2018 3V ELBOW SURGERY Right ENDARTERECTOMY Left 10/17/2024 common/SFA/Profunda thromboendarterectomy, EIA/SIGNAL OPERATOR LINGUIST stent HERNIA REPAIR KNEE ARTHROSCOPY Left VASCULAR SURGERY Left 09/21/2024 SIGNAL OPERATOR LINGUIST pseudoaneurym injection [5] Social History Tobacco Use [...] [facility] [address] [place] [address] 11/26/2024 2:30 PM EDT Appointment [facility] [address] [place] [address] 11/26/2024 3:20 PM EDT Office Visit [facility] [address] [place] [address] Elisabet Schuster PA [address] [facility] [address] [place] [address] 11/29/2024 2:30 PM EDT Office Visit [place] [address] [place] [address] Oscar Appiah MD [address] [facility] [address] [place] [address] documented as of this encounter Goals Goal Patient Goal Type Associated Problems Recent Progress Patient-Stated? Author Autogenera louise Goal Care Plan Autogenerated Problem No Ekta Arnett documented as of this encounter Procedures Procedure Name Priority Date/Time Associated Diagnosis Comments PB ANESTHESIA PLACEHOLDER Routine 11/06/2024 10:58 AM EDT WI AN ELECTIVE ENDOTRACHEAL AIRWAY Routine 11/06/2024 10:58 AM EDT documented in this encounter Results * WI AN ELECTIVE ENDOTRACHEAL AIRWAY, PB ANESTHESIA PLACEHOLDER (11/06/2024 10:58 AM EDT) Narrative Asad Lechuga CRNA, DNP - 11/06/2024 10:58 AM EDT Asad Lechuga CRNA, DNP 11/06/2024 11:05 AM Airway Date/Time: 11/06/2024 10:58 AM Reason: elective Airway not difficult General Information and Staff Patient location during procedure: OR POWER SCREWDRIVER OPERATOR: Asad Lechuga CRNA, DNP Performed: ISH [...] as of this encounter Care Teams Rn Women Services Relationship Specialty Start Date End Date Asad Victor MD [address] [place] [address] PCP - General 10/07/22 documented as of this encounter
[2024-11-18 11:25] LABS: Hematocrit 28.0 % (42.0-52.0); Hemoglobin 8.9 g/dL (14.1-18.0); Immature Granulocytes % 0.4 %; Mean Corpuscular HGB Conc 31.8 g/dL (31.8-35.4); Mean Corpuscular Hemoglobin 29.3 pg (27.0-31.2); Mean Corpuscular Volume 92.1 fl (80-94); Nucleated Red Blood Cells % 0 %; Platelet Count 415 K/mm3 (142-424); Red Blood Count 3.04 M/mm3 (4.60-6.20); Red Cell Distribution Width-SD 46.1 fL; White Blood Count 10.7 K/mm3 (4.8-10.8)
--- OUTSIDE RECORDS SUMMARY | 2024-11-18 11:47 | XMS_ITS | Encounter Summary ---
Author Organization Healthcare Address [address] [place] [address] Care Team Providers Care Education Program Associate Name Role Phone Asad Victor MD Primary Care Provider + [phone] Encounter Details Date Type Department Care Team (Late st Contact Info) Description 09/21/2024 Orders Only External Location [address] [place] [address] Provider, External Social History Tobacco Use Types [...] drink first t dino in the morning (EYE-BACK ROLLER) to steady your nerves or to [...] Info) Description 11/26/2024 2:00 PM EDT Appointment [facility] [address] [facility] 5th Floor [address] [place] [address] 11/26/2024 2:30 PM EDT Appointment [facility] [address] [facility] 5th Floor [address] [place] [address] 11/26/2024 3:20 PM EDT Office Visit [facility] [address] [facility] 5th Floor [address] [place] [address] Elisabet Schuster PA [address] [place] [address] 11/29/2024 2:30 PM EDT Office Visit [address] [address] Oscar Appiah MD [address] [place] [address] [address] [place] [address] documented as of this encounter [...] documented as of this encounter Care Teams Education Program Associate Relationship Specialty Start Date End Date Asad Victor MD [address] [place] [address] PCP - General 10/07/22 documented as of this encounter
--- OUTSIDE RECORDS SUMMARY | 2024-11-18 11:47 | XMS_ITS | Encounter Summary ---
Author Organization Healthcare Address [address] [place] [address] Care Team Providers Care Dual Hose Cementer Name Role Phone Asad Victor MD Primary Care Provider + [phone] Encounter Details Date Type Department Care Team [...] drink first t dino in the morning (EYE-CAREER DEVELOPMENT FACILITATOR) to steady your nerves or to get [...] [facility] [address] [facility] 5th Floor Wing D, [address] [place] [address] 11/26/2024 2:30 PM EDT Appointment [facility] [address] [facility] 5th Floor Wing [address] [place] [address] 11/26/2024 3:20 PM EDT Office Visit [facility] [address] 5th Floor [address] [place] [address] Elisabet Schuster PA [address] [place] [address] 11/29/2024 2:30 PM EDT Office Visit [address] [place] [address] [place] [address] [place] [address] 100 [place] [address] documented as of this encounter Visit Diagnoses Not on filedocumented in this encounter Additional Health Concerns Assessment Noted Time A Body Mass Index follow-up plan has been documented for the patient 09/22/2024 2:53 PM EDT documented as of this encounter Care Teams Dual Hose Cementer Relationship Specialty Start Date End Date Asad Victor MD [address] [place] [address] PCP - General 10/07/22 documented as of this encounter
--- OUTSIDE RECORDS SUMMARY | 2024-11-18 11:47 | XMS_ITS | Encounter Summary ---
Author Organization [facility] Address [address] [place] [address] Care Team Providers Care Reactor Service Operator Name Role Phone Asad Victor MD Primary Care Provider + [phone] Encounter Details Date Type Department Care Team [...] t dino in the morning (EYE-DIRECTOR OF INSTITUTIONAL RESEARCH) to steady your nerves or to get [...] Info) Description 11/26/2024 2:00 PM EDT Appointment [facility] [address] [facility] 5th Floor [address] [place] [address] 11/26/2024 2:30 PM EDT Appointment [facility] Lab [address] 5th Floor [address] [place] [address] 11/26/2024 3:20 PM EDT Office Visit [facility] [address] [facility] 5th Floor [address] [place] [address] Elisabet Schuster PA [address] [place] [address] 11/29/2024 2:30 PM EDT Office Visit [facility] [address] [place] [address] Oscar Appiah MD [address] [facility] [address] [place] [address] documented as of this encounter Visit Diagnoses Not on filedocumented in this encounter Additional Health Concerns Assessment Noted Time A Body Mass Index follow-up plan has been documented for the patient 09/22/2024 2:53 PM EDT documented as of this encounter Care Teams Reactor Service Operator Relationship Specialty Start Date End Date Asad Victor MD [address] [id number] PCP - General 10/07/22 documented as of this encounter
--- OUTSIDE RECORDS SUMMARY | 2024-11-18 11:47 | XMS_ITS | Encounter Summary ---
Author Organization Healthcare Address [address] [place] [address] Care Team Providers Care Warehouse Shipping Receiving Clerk Name Role Phone Asad Victor MD Primary Care Provider + [phone] Encounter Details Date Type Department Care Team (Late st Contact Info) Description 09/20/2024 Orders Only External Location [address] [place] [address] Timothy Marques PA [address] [place] [id number] Social History Tobacco Use Types Packs/Day Years [...] first t dino in the morning (EYE-ACCOUNTS PAYABLE SPECIALIST) to steady your nerves or to [...] [facility] Lab [address] [facility] 5th Floor [address] [place] [address] 11/26/2024 2:30 PM EDT Appointment [facility] [address] [facility] 5th Floor [address] [place] [address] 11/26/2024 3:20 PM EDT Office Visit [facility] [address] [facility] 5th Floor [address] [place] [address] Elisabet Schuster, GLENDA [address] [facility] [address] [place] [address] 11/29/2024 2:30 PM EDT Office Visit [facility] [address] [place] [address] Oscar Appiah MD [address] [facility] [address] [place] [address] documented as of this encounter Procedures Procedure [...] documented as of this encounter Care Teams Warehouse Shipping Receiving Clerk Relationship Specialty Start Date End Date Asad Victor MD [address] [place] [address] PCP - General 10/07/22 documented as of this encounter
--- OUTSIDE RECORDS SUMMARY | 2024-11-18 11:47 | XMS_ITS | Encounter Summary ---
Author Organization Healthcare Address [address] [place] [address] Care Team Providers Care Repairer General Name Role Phone Asad Victor MD Primary Care Provider + [phone] Encounter Details Date Type Department Care Team (Late st Contact Info) Description 09/20/2024 Orders Only External Location [address] [place] [address] Timothy Marques PA [address] [place] [id number] Social History Tobacco Use Types Packs/Day Years [...] t dino in the morning (EYE-WOUND CARE SPECIALIST) to steady your nerves or to [...] Info) Description 11/26/2024 2:00 PM EDT Appointment [facility] Lab [address] [place] [address] 11/26/2024 2:30 PM EDT Appointment [facility] Lab [address] [facility] 5th Floor Wing [address] [place] [address] 11/26/2024 3:20 PM EDT Office Visit [facility] [address] [facility] 5th Floor Wing [address] [place] [address] Elisabet Schuster, GLENDA [address] [facility] [address] [place] [address] 11/29/2024 2:30 PM EDT Office Visit [facility] [address] [place] [address] Oscar Appiah MD [address] [facility] [address] [place] [address] documented as of this encounter Procedures Procedure [...] documented as of this encounter Care Teams Repairer General Relationship Specialty Start Date End Date Asad Victor MD [address] [place] [address] PCP - General 10/07/22 documented as of this encounter
--- OUTSIDE RECORDS SUMMARY | 2024-11-18 11:48 | XMS_ITS | Encounter Summary ---
Author Organization [facility] Address [address] [place] [address] Care Team Providers Care Soil Specialist Name Role Phone Asad Victor MD Primary Care Provider + [phone] Encounter Details Date Type Department Care Team [...] drink first t dino in the morning (EYE-FORWARD AIR CONTROLLER/AIR OFFICER) to steady your nerves or to [...] [facility] [address] 5th Floor [address] [place] [address] 11/26/2024 2:[address] [facility] Lab [address] 5th Floor [address] [place] [address] 11/26/2024 3:20 PM EDT Office Visit [facility] [address] 5th Floor [address] [place] [address] Elisabet Schuster, PA [address] [place] [address] 11/29/2024 2:30 PM EDT Office Visit [facility] [address] [facility] [place] [address] Oscar Appiah MD [address] [facility] [address] [place] [address] documented as of this encounter [...] documented as of this encounter Care Teams Soil Specialist Relationship Specialty Start Date End Date Asad Victor MD [address] [place] [address] PCP - General 10/07/22 documented as of this encounter
--- OUTSIDE RECORDS SUMMARY | 2024-11-18 11:49 | XMS_ITS | Encounter Summary ---
Author Organization Healthcare Address [address] [id number] Care Team Providers Care Top Dyeing Machine Tender Name Role Phone Asad Victor MD Primary Care Provider + [phone] Reason for Visit * Reason Onset Date Comments HCN Clinical Concern/Question 11/15/2024 Encounter Details Date Type Department Care Team (Late st Contact Info) Description 11/15/2024 Telephone [place] [facility] [address] [facility] 5th Floor [address] [place] [address] Nathaly Nowak MD [address] [facility] [address] [place] [address] HCN Clinical Concern/Question Social History [...] any time in the past 12 m [facility], were you homeless or living [...] drink first t dino in the morning (EYE-STEEL CRANE OPERATOR) to steady your nerves or to [...] with info. Thank you Best contact number: [phone] (mobile) Optimal time of day to reach caller: ANYTIME Additional comments/information from caller: None Note: Please do not reply to this message. Follow-up communication and further actions as a result of this message need to be communicated with the patient directly, if the patient is not active onMyChart. If the patient is active on MyChart, they will receive notification of the communication/outcome via Parkohart. documented in this encounter Plan of Treatment Upcoming Encounters Date Type Department Care Team (Late st Contact Info) Description 11/26/2024 2:00 PM EDT Appointment [facility] Vascular Lab [address] [facility] 5th Floor [address] [place] [address] 11/26/2024 2:30 PM EDT Appointment [facility] [address] [facility] 5th Floor [address] [place] [address] 11/26/2024 3:20 PM EDT Office Visit [facility] [address] 5[address] [place] [address] Elisabet Schuster PA [address] [place] [address] 11/29/2024 2:30 PM EDT Office Visit [facility] [address] [place] [address] Oscar Appiah MD [address] [facility] [address] [place] [address] documented as of this encounter Goals Goal [...] documented as of this encounter Care Teams Top Dyeing Machine Tender Relationship Specialty Start Date End Date Asad Victor MD [address] [place] [address] PCP - General 10/07/22 documented as of this encounter
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
--- OUTSIDE RECORDS SUMMARY | 2024-11-18 11:50 | XMS_ITS | Encounter Summary ---
Author Organization [facility] Address [address] [place] [address] Care Team Providers Care Cotton Tier Name Role Phone Asad Victor MD Primary Care Provider + [phone] Encounter Details Date Type Department Care Team [...] drink first t dino in the morning (EYE-POWDER OPERATOR) to steady your nerves or to [...] [facility] [address] 5th Floor [address] [place] [address] 11/26/2024 2:30 PM EDT Appointment [facility] [address] 5th Floor Wing [address] [place] [address] 11/26/2024 3:20 PM EDT Office Visit [facility] [address] 5th Floor Wing [address], [address] [place] [address] Elisabet Schuster, PA [address] [place] [address] 11/29/2024 2:30 PM EDT Office Visit [facility] [address] [facility] [place] [place] [address] Oscar Appiah MD [address] [facility] [address] [place] [address] documented as of this encounter [...] documented as of this encounter Care Teams Cotton Tier Relationship Specialty Start Date End Date Asad Victor MD [address] [place] [address] PCP - General 10/07/22 documented as of this encounter
--- OUTSIDE RECORDS SUMMARY | 2024-11-18 11:50 | XMS_ITS | Encounter Summary ---
Author Organization Healthcare Address [address] [id number] Care Team Providers Care Tangible Personal Property Appraiser Name Role Phone Asad Victor MD Primary Care Provider + [phone] Encounter Details Date Type Department Care Team (Late st Contact Info) Description 10/22/2024 Telephone Vascular Surgery [address] [place] [address] Alison Beltrán, PULLEY MAINTAINER, DNP [address] [facility] [address] [place] [address] Social History Tobacco Use Types Packs/Day Years [...] living in a fpc (including now)? No 10/18/2024 CAGE ASSESSMENT Answer [...] first t dino in the morning (EYE-HEALTH SCIENCES MANAGER) to steady your nerves or to [...] Notes * Telephone Encounter - Alison Beltrán, PULLEY MAINTAINER, DNP - 10/22/2024 11:39 AM EDT Returned patient call. Patient s/p left common/superficial/profunda femoral thromboendarterectomy with bovine patch repair and left external iliac artery/WINDOW DISPLAY DESIGNER stent with Dr Gautam on 10/17/24. Patient [...] [facility] [address] [place] [address] 11/26/2024 2:30 PM EDT Appointment [facility] V[facility] Lab [address] [place] [address] 11/26/2024 3:20 PM EDT Office Visit [facility] [address] [place] [address] Elisabet Schuster, PA [address] [facility] [address] [place] [address] 11/29/2024 2:30 PM EDT Office Visit [facility] [address] [place] [address] Oscar Appiah MD [address] [facility] [address] [place] [address] documented as of this encounter [...] documented as of this encounter Care Teams Tangible Personal Property Appraiser Relationship Specialty Start Date End Date Asad Victor MD [address] [place] [address] PCP - General 10/07/22 documented as of this encounter
--- OUTSIDE RECORDS SUMMARY | 2024-11-18 11:51 | XMS_ITS | Encounter Summary ---
Author Organization Healthcare Address [address] [place] [address] Care Team Providers Care Garden Equipment Mechanic Name Role Phone Asad Victor MD Primary Care Provider + [phone] Encounter Details Date Type Department Care Team (Late st Contact Info) Description 11/05/2024 Orders Only External Location [address] [place] [address] Provider, External Social History Tobacco Use Types [...] drink first t dino in the morning (EYE-OCC THER) to steady your nerves or to get rid of a hangover? 0 10/18/2021 CAGE Questionnaire Score 0 022 Utilities Answer Date Recorded In the past 12 months has th e [employer], gas, oil, or water company threatened to [...] [facility] [address] [facility] 5th Floor Wing [address] [place] [address] 11/26/2024 2:30 PM EDT Appointment [facility] [address] [facility] 5th Floor Wing [address] [place] [address] 11/26/2024 3:20 PM EDT Office Visit [facility] [address] [place] [address] Elisabet Schuster PA [address] [place] [address] 11/29/2024 2:30 PM EDT Office Visit [place] [address] [place] [address] Oscar Appiah MD [address] [place] [address] [address] [place] [address] documented as of this encounter [...] documented as of this encounter Care Teams Garden Equipment Mechanic Relationship Specialty Start Date End Date Asad Victor MD [address] [place] [address] PCP - General 10/07/22 documented as of this encounter
--- OUTSIDE RECORDS SUMMARY | 2024-11-18 11:51 | XMS_ITS | Encounter Summary ---
Author Organization [facility] Address [address] [place] [address] Care Team Providers Care Waredresser Name Role Phone Asad Victor MD Primary Care Provider + [phone] Encounter Details Date Type Department Care Team [...] time in the past 12 m [facility], were you homeless or living [...] drink first t dino in the morning (EYE-GEOSPATIAL IMAGERY INTELLIGENCE ANALYST) to steady your nerves or to [...] [facility] [address] [facility] 5th Floor Wing [address] [place] [address] 11/26/2024 2:30 PM EDT Appointment [facility] [address] [place] [address] 11/26/2024 3:20 PM EDT Office Visit [facility] [address] [facility] 5th Floor Wing [address] [place] [address] Elisabet Schuster PA [address] [place] [address] 11/29/2024 2:30 PM EDT Office Visit [place] [place] [address] Oscar Appiah MD [address] [place] [address] [address] [place] [address] documented as of this encounter [...] documented as of this encounter Care Teams Waredresser Relationship Specialty Start Date End Date Asad Victor MD [address] [facility] [address] [place] [address] PCP - General 10/07/22 documented as of this encounter
--- OUTSIDE RECORDS SUMMARY | 2024-11-18 11:51 | XMS_ITS | Encounter Summary ---
Author Organization Healthcare Address [address] [place] [address] Care Team Providers Care Friction Paint Machine Tender Name Role Phone Asad Victor MD Primary Care Provider + [phone] Encounter Details Date Type Department Care Team (Late st Contact Info) Description 10/17/2024 Orders Only External Location [address] [place] [address] Provider, External Social History Tobacco Use Types [...] any time in the past 12 m [facility], were you homeless or living [...] first t dino in the morning (EYE-DIRECTOR CORPORATE) to steady your nerves or to get rid of a hangover? 0 10/18/2021 CAGE Questionnaire Score 0 022 Utilities Answer Date Recorded In the past 12 months has th e [employer], gas, oil, or water [employer] threatened to shut off services in [...] Info) Description 11/26/2024 2:00 PM EDT Appointment [facility]ascular Lab [address] [facility] 5th Floor Wing [address] [place] [address] 11/26/2024 2:30 PM EDT Appointment [facility] [address] [facility] 5th Floor [address] [place] [address] 11/26/2024 3:20 PM EDT Office Visit [facility] [address] [facility] 5th Floor [address] [place] [address] Elisabet Schuster PA [address] [place] [address] 11/29/2024 2:30 PM EDT Office Visit [place] [address] [place] [address] [place] [address] [place] [address] [address] [place] [address] documented as of this encounter [...] documented as of this encounter Care Teams Friction Paint Machine Tender Relationship Specialty Start Date End Date Asad Victor MD [address] [place] [address] PCP - General 10/07/22 documented as of this encounter
--- OUTSIDE RECORDS SUMMARY | 2024-11-18 11:51 | XMS_ITS | Referral Summary ---
Author Organization [employer] ([place], [place], [place], [place]) Address [address] [place] [address] Care Team Providers Care Business Support Assistant Name Role Phone Unavailable Primary Care Provider [...] Description 11/18/2024 1:10 PM EDT Office Visit [address] [phone] Jerry Monroe Jr., MD [address] [place] [address] 11/20/2024 2:15 PM EDT Clinical Support [address] [phone] 11/22/2024 4:15 PM EDT Clinical Support [address] [phone] Insurance [facility] MEDICARE ADVANTAGE [employer]ETNA [facility] [place]
--- OUTSIDE RECORDS SUMMARY | 2024-11-18 11:51 | XMS_ITS | Encounter Summary ---
Author Organization [facility] Address [address] [place] [address] Care Team Providers Care Boat Tester Name Role Phone Asad Victor MD Primary Care Provider + [phone] Encounter Details Date Type Department Care Team [...] drink first t dino in the morning (EYE-PROGRAM MANAGER TRANSPORTATION) to steady your nerves or to get [...] Info) Description 11/26/2024 2:00 PM EDT Appointment [facility] Lab [address] [place] [address] 11/26/2024 2:30 PM EDT Appointment [facility] Lab [address] [place] [address] 11/26/2024 3:20 PM EDT Office Visit [facility] [address] 5[address] [place] [address] Elisabet Schuster, PA [address] [place] [address] 11/29/2024 2:30 PM EDT Office Visit [facility] [address] [place] [address] Oscar Appiah MD [address] [facility] [address] [place] [address] documented as of this encounter [...] documented as of this encounter Care Teams Boat Tester Relationship Specialty Start Date End Date Asad Victor MD [address] [place] [address] PCP - General 10/07/22 documented as of this encounter
--- OUTSIDE RECORDS SUMMARY | 2024-11-18 11:51 | XMS_ITS | Clinical Summary ---
Author Organization [employer] ([place], [place], [place], [place]) Address [address] [place] [address] Care Team Providers Care Take Down Sorter Name Role Phone Unavailable Primary Care Provider [...] Description 11/18/2024 1:10 PM EDT Office Visit [address] [phone] Jerry Monroe Jr., MD [address] [place] [address] 11/20/2024 2:15 PM EDT Clinical Support [address] [phone] 11/22/2024 4:15 PM EDT Clinical Support [address] [phone] Health Maintenance Due Date Last Done Comments [...] (1 - 1-dose 75+ series) 2034 Insurance [facility] MEDICARE ADVANTAGE [employer] [facility]
--- OUTSIDE RECORDS SUMMARY | 2024-11-18 11:51 | XMS_ITS | Encounter Summary ---
Author Organization Healthcare Address [address] [place] [address] Care Team Providers Care Under Seal Operator Name Role Phone Asad Victor MD Primary Care Provider + [phone] Encounter Details Date Type Department Care Team (Late st Contact Info) Description 11/15/2024 Clinical Support [address] [place] [address] Charly Orlando, PharmD [address] [place] [address] [address] [place] [address] Social History Tobacco Use Types [...] first t dino in the morning (EYE-MANAGER INTELLIGENCE) to steady your nerves or to get rid of a hangover? 0 10/18/2021 CAGE Questionnaire Score 0 022 Utilities Answer Date Recorded In the past 12 months has th e [employer], gas, oil, or water company threatened to [...] Info) Description 11/26/2024 2:00 PM EDT Appointment [facility] Vascular Lab [address] 5th Floor [address] [place] [address] 11/26/2024 2:30 PM EDT Appointment [facility] Lab [address] 5th Floor [address] [place] [address] 11/26/2024 3:20 PM EDT Office Visit [facility] [address] 5th Floor [address] [place] [address] Elisabet Schuster, PA [address] [place] [address] 11/29/2024 2:30 PM EDT Office Visit [facility] [address] [facility] [place] [address] Oscar Appiah MD [address] [facility] [address] [place] [address] documented as of this encounter [...] documented as of this encounter Care Teams Under Seal Operator Relationship Specialty Start Date End Date Asad Victor MD [address] [place] [address] PCP - General 10/07/22 documented as of this encounter
--- OUTSIDE RECORDS SUMMARY | 2024-11-18 11:52 | XMS_ITS | Encounter Summary ---
Author Organization Healthcare Address [address] [place] [address] Care Team Providers Care Moccasin Sewer Name Role Phone Asad Victor MD Primary Care Provider + [phone] Encounter Details Date Type Department Care Team [...] drink first t dino in the morning (EYE-EMERGENCY ROOM TECH) to steady your nerves or to [...] Info) Description 11/26/2024 2:00 PM EDT Appointment [facility] Lab [address] 5th Floor [address] [place] [address] 11/26/2024 2:30 PM EDT Appointment [facility] [address] 5th Floor [address] [place] [address] 11/26/2024 3:20 PM EDT Office Visit [facility] [address] 5th Floor [address] [place] [address] Elisabet Schuster PA [address] [place] [address] 11/29/2024 2:30 PM EDT Office Visit [facility] [address] [place] [address] Oscar Appiah MD [address] [facility] [address] [place] [address] documented as of this encounter Visit Diagnoses Not on filedocumented in this encounter Additional Health Concerns Assessment Noted Time A Body Mass Index follow-up plan has been documented for the patient 09/22/2024 2:53 PM EDT documented as of this encounter Care Teams Moccasin Sewer Relationship Specialty Start Date End Date Asad Victor MD [address] [facility] [address] [place] [address] PCP - General 10/07/22 documented as of this encounter
--- NOTE | 2024-11-18 14:41 | PC.NURSE ---
1119 CBC collected per MD order via L PICC per CHRISTIAN Flores. Patient reports to staff that he has an appointment in [place] at [facility] at 1300 today and asks if his IV antibiotic infusion will be complete in time for him to arrive for that appointment. Explained that medication infusion times would not permit him to arrive on time for his scheduled appointment; patient chooses to go to appointment at 1300 at [facility] [place] and then return at a later time today for IV antibiotic infusions.
[2024-11-18] MEDS: ERTAPENEM SODIUM 1 GM in 0.9 % SODIUM CHLORIDE 50 ML IV (19:29)
[2024-11-18] MEDS: SODIUM CHLORIDE 0.9% IV (20:04)
[2024-11-18] MEDS: MICAFUNGIN SODIUM IV (20:04)
--- NOTE | 2024-11-18 20:08 | PC.NURSE ---
Vitals before infusion- BP: 162/70, HR 72, SPO2 96% Room air, Temp 97.6, Resp 16
--- NOTE | 2024-11-18 21:15 | PC.NURSE ---
Post vitals- BP 166/74, HR 82, SPO2 97%, Resp 14
== END 2024-11-18 23:59 | disposition home or self-care (01) ==
LOC: INF 11:05
PROVIDERS: PCP Family Medicine
DX: T14.8XXA Other injury of unspecified body region, initial encounter (principal); L08.9 Local infection of the skin and subcutaneous tissue, unspecified; X58.XXXA Exposure to other specified factors, initial encounter; Y93.9 Activity, unspecified; Y92.9 Unspecified place or not applicable
CPT/HCPCS: 36592; 85025; J1335; J2248

== ENCOUNTER 2024-11-19 11:01 | Outpatient (CLI) | payer MEDICARE, OTHER, SELFPAY ==
--- OUTSIDE RECORDS SUMMARY | 2024-09-20 21:25 | XMS_ITS | Encounter Summary ---
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 Nathaly Nowak MD [address] [address] Phone: tel: fax: [facility] Emergency Department [address] [place] [address] Phone: tel: Referral ID Status Reason Start Date Expiration Date Visits Re quested Visits Authorized [id number] 1 1 Encounter Details Date Type Department Care Team (Latest Contact Info) Description 09/20/2024 9:25 PM EDT - 09/22/2024 4:00 PM EDT Hospital Encounter [facility] Inpatient [address] [place] [id number] Robbie Braxton MD [address] [place] [address] Nathaly Nowak MD [id number] [place] [address] 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 0 10/18/2021 CAGE Questionnaire Score 0 022 Sex and Gender Information Value Date Recorded Sex Assigned at Not on file Legal Sex Male 8:57 PM EDT Gender Identity Not on file Sexual Orientation Not on file documented as of this encounter Last Filed Vital Signs Vital Sign Reading Time Taken Comments Blood Pressure 171/75 09/22/2024 11:05 AM EDT Pulse 107 09/22/2024 11:05 AM EDT Temperature 36.8 C (98.2 F) 09/22/2024 11:05 AM EDT Respiratory Rate 20 09/22/2024 7:19 AM EDT Oxygen Saturation 96% 09/22/2024 11:05 AM EDT Inhaled Oxygen Concentration - - Weight 93.5 kg (206 lb 2.1 oz) 09/21/2024 5:54 P M EDT Height 170.2 cm (5' 7 ) 09/20/2024 9:33 PM EDT Body Mass Index 32.28 09/20/2024 9:33 PM EDT documented in this encounter Functional Status * Calculated C-SSRS Risk Score (Lifetime/Recent) Answer Date of Assessment Author No Risk Indicated 09/22/2024 8:10 AM EDT Melecio Zuleta RN * Question Answer Date of Assessment Author 1. Wish to be (Past 1 Month) No 025 8:10 AM EDT Melecio Vega, CHRISTIAN 2. Non-Specific Active Suici marcelle Thoughts (Past 1 Month) No 09/22/2024 8:10 AM EDT Apollo Vega RN 6. Suicidal Behavior (Lifetime) No 5 8:10 AM EDT Melecio Vega, CHRISTIAN documented as of this encounter Discharge Instructions * Discharge Instructions* Anthony Keenan MD - 09/22/2024 12:23 PM EDT Images from the original note were not included. Department of Surgery Division of Vascular Surgery Activity: - Move around as you are able, do not lift over 5 lbs for 6 weeks after surgery - Please do not drive while taking muscle relaxants or narcotics. Do not drive for two weeks, or until strength is regained to make sudden movements and cognitive/ spatial awareness is intact. - Hygiene: PLEASE SHOWER DAILY TO PREVENT SURGICAL INFECTION. No tub baths, hot tubs, saunas, pools, lakes, streams, ponds. Do not submerge incisions/ wounds in water. Diet: You may eat a regular diet Be sure to stay hydrated and take in plenty of fluid. Medications: - Pain: Take tylenol 1000mg every 6 hours for pain, if you still have pain, take oxycodone, one tabevery 6-8 hours as needed. - Blood thinners: You should start taking you home Asprin and Xeralto starting on 09/23. - Continue your home medications unless instructed otherwise at discharge. Wound care: Wash with soap and water daily. Pat to dry. Ro/ sutures will be removed at postoperative follow up in vascular clinic. Do not place any creams/ ointments/ oils/ lotions on surgical incisions. Notify PCP or nurse navigator if any cloudy, green, yellow, red, brown, odorous drainage occurs. Notify PCP for any redness, warmth, pain, or bleeding occurs around incision. If incision begi ns to bleed uncontrollably, hold pressure and call 911. Follow up: We will call you to schedule you next surgery. Questions: Call [phone] during business hours on week or call [facility] after hours at [phone] to speak with a resident special weapons unit officer for Vascular Surgery after 5pm or on weekends if: - you have a fever > 101F - you are vomiting and cannot keep down liquids - your pain cannot be controlled with oral medications - if you start to have increased redness, drainage of pus, swelling, or increased pain around your incision - Difficulty breathing, headache or visual disturbances: Call 911 if you notice it's hard to breathcausing dizziness, loss of consciousness, pale or blue changes to skin color, rapid or shallow breathing, chest pain or pressure. Call 911 if you notice a significantly painful headache, loss of vision, or visual disturbances. You will receive a letter with your follow up appointment date/time in approximately 2 weeks if youdid not receive it at discharge. Please notify Vascular Surgery Nurse Navigator, Beni Carmona with any questions or concerns at [phone]. It is important that you get your scheduled imaging completed prior to your follow up appointment with your surgeon. We try our best to have your imaging and follow up appointment on the same day, it may not always be possible. Please bring your list of medications with you. Please bring your parking ticket in for validation. documented in this encounter Medications at Time of Discharge insulin glargine (Lantus) 100 UNIT/ML injection Inject 28 Units under the skin nightly. lisinopril 10 MG tablet Take 1 tablet by mouth daily. 03/25/2019 metoprolol tartrate (Lopressor) 100 MG tablet Take 1 tablet by mouth 2 times a day. 08/29/2016 pravastatin (Pravachol) 40 MG tablet Take 1 tablet by mouth nightly. 03/28/2019 tamsulosin (Flomax) 0.4 MG 24 hr capsule Take 1 capsule by mouth every evening. 09/30/2022 oxyCODONE (Roxicodone) 5 MG immediate release tablet Take 1 tablet by mouth every 6 hours as needed for severe pain for up to 3 days. 12 tablet 09/22/2024 09/25/2024 amLODIPine (Norvasc) 10 MG tablet Take 1 tablet by mouth daily. 09/28/2022 10/11/2024 Aspirin Low Dose 81 MG EC tablet Take 1 tablet by mouth daily. 09/28/2022 10/19/2024 insulin aspart protamine-insulin aspart (NovoLOG Mix 70-30) (70-30) 100 UNIT/ML injection Inject 12 Units under the skin 2 times a day with meals. 10/19/2024 insulin lispro protamine-insulin lispro (HumaLOG Mix 75-25) (75-25) 100 UNIT/ML injection vial Inject 12 Units under the skin 2 times a day with meals. 11/06/2024 isosorbide mononitrate ER (Imdur) 60 MG 24 hr tablet Take 1 tablet by mouth daily. 01/31/2019 10/18/2024 rOPINIRole (Requip) 1 MG tablet Take 1 tablet by mouth 2 times a day. 10/19/2024 Xarelto 2.5 MG tablet Take 1 tablet by mouth 2 times a day. 09/20/2022 10/19/2024 documented as of this encounter Miscellaneous Notes * Hospital Course - Anthony Keenan MD - 09/22/2024 4:00 PM EDT Mono Bobby is a 64 y.o. male with PMHx notable for COPD, CAD s/p PCI with pacemaker on Xarelto, T2DM, HLD, HTN, RLS who presented to 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 He reports this was from an access site for a procedure to treat rest pain where they used balloons. On review of imaging with radiologist, reported bleeding pattern was abnormal in nature, but did look contained and not actively extravasating. Arterial duplex was obtained that confirmed thepresence of a pseudoaneurysm . The pseudoaneurysm was injected with thrombin on 09/21 which he tolerated well without any complications. The day after the procedure repeat arterial duplex was obtained which showed the pseudoaneurysm was thrombosed. Patient's pain was controlled and he was able to ambulate. Given his rest pain, we are planning on bringing him back for a revascularization procedure. On the day of discharge, the patient is afebrile, hemodynamically stable, voiding spontaneously, tolerating a regular diet, and having bowel movements. Hispain is controlled with oral medications andheis ambulating. Edward reached the maximum benefit of hospital admission and is being discharged home in stable condition. * Progress Notes - Melecio Vega RN - 09/22/2024 3:01 PM EDT Discharge instructions provided to patient. Iv removed. Patient voices understanding of the discharge instructions. No distress noted. Patient to waste picker meds to beds medications upon discharge. Awaiting his ride to arrive. Patient states his discharge ride is about 40 minutes away. * [facility] - Melecio Vega RN - 09/22/2024 2:52 PM EDT Images from the original note were not included. [id number] Peripheral Artery Disease (PAD) Peripheral artery disease (PAD) happens when the arteries that carry blood to the arms, legs, and head are narrowed or blocked. This is usually from a buildup of plaque. Plaque is a fatty substance in the christian of the arteries. PAD most often affects the arteries in the legs. When these arteries are narrowed or blocked, less blood gets to the legs. This can cause leg and foot pain. If severe enough, the lack of blood flow can lead to tissue (gangrene) and the loss of a toe, foot, or leg. Having PAD also makes it more likely that arteries in other body areas are blocked. For instance, arteries that carry blood to the heart or brain may be affected. This raises the chances of heart attack, stroke, and . Risk factors Certain things can make PAD more likely. They include: ? Smoking. ? Diabetes. ? High blood pressure. ? Unhealthy cholesterol levels. ? Obesity. ? An inactive lifestyle. ? Older age. ? A family history of PAD. Symptoms Many people with PAD have no symptoms. If symptoms do occur, they can include: ? Pain in the muscles of the calves, thighs, or hips. It gets worse with activity and better with rest (intermittent claudication). ? Achy, tired, or heavy feeling in the legs. ? Weakness, numbness, tingling, or loss of feeling in the legs. ? Changes in skin color of the legs. ? Sores on the legs and feet that heal slowly. ? Cold legs, feet, or toes. ? Pain in the legs, feet, or toes even when you're lying down (rest pain) or asleep. ? Trouble walking, such as not being able to walk as far as you used to walk. Home care PAD is a lifelong (chronic) condition. Treatment focuses on managing your condition and lowering your health risks. This may include doing the following: ? If you smoke, quit. This helps prevent further damage to your arteries and lowers your health risks. Ask your health care provider about medicines or products that can help you quit smoking. Also consider joining a stop-smoking program or support group. ? Be more active. This helps you lose weight and manage problems such as high blood pressure and unhealthy cholesterol levels. Start a walking program if your provider advises it. Your provider may also help you form a safe exercise program that is right for your needs. ? Make healthy eating changes. This includes eating less fat, salt, and sugar. ? Take medicines for high blood pressure, blood clot prevention, unhealthy cholesterol levels, and diabetes as directed. ? Have your blood pressure and cholesterol levels checked as often as directed. ? If you have diabetes, try to keep your blood sugar well controlled. Test your blood sugar as directed. ? If you are overweight, talk with your provider about a weight-loss plan. ? Watch for cuts, scrapes, or open sores on your feet. Poor blood flow to the feet may slow healingand increase the risk for infection from these problems. ? If you have depression, talk to your health care provider about treatment to manage it. Follow-up care Follow up with your health care provider as advised. If you've had imaging tests such as ultrasound, a doctor will review them. You will be told the results and any new findings that may affect your care. When to seek medical advice Contact your health care provider right away if: ? You have sudden severe pain in your legs or feet. ? You have sudden cold, paleness, or blue color in your legs or feet. ? You have weakness or numbness in your legs or feet that gets worse. ? Any sores or wounds on your legs or feet won?t heal. ? The pulse in your legs or feet is weak. ? Your symptoms get worse, or you have new symptoms. Know the signs of heart attack and stroke People with PAD are at high risk for heart attack and stroke. Knowing the signs of these problems can help you protect your health and get help when you need it. Call 911 right away if: ? You have chest discomfort, such as pain, aching, tightness, or pressure that lasts more than a few minutes or that comes and goes. ? You have pain or discomfort in your arms, back, shoulders, neck, or jaw. ? You're short of breath. ? You're sweating (often a cold, clammy sweat). ? You have nausea. ? You feel lightheaded. ? You have sudden numbness, drooping, or weakness of the face, arms, or legs, especially on one side. ? You have sudden confusion or trouble speaking or understanding. ? You suddenly have trouble seeing in one or both eyes. ? You suddenly have trouble walking, feel dizzy, or lose your balance. ? You have a sudden, severe headache with no known cause. Last Reviewed Date: 2024 00:00:00 ?? [id number] [employer]. All rights reserved. This information is not intended as a substitute for professional medical care. Always follow your healthcare professional's instructions. * [facility] - Melecio Vega RN - 09/22/2024 2:52 PM EDT Images from the original note were not included. [id number] Taking Aspirin for Atherosclerosis Aspirin is a medicine often prescribed to treat atherosclerosis. This condition affects your arteries. These are the blood vessels that carry blood away from your heart out to your body. Having atherosclerosis means you?re at greater risk of a heart attack or stroke. Aspirin can help prevent these from happening. How atherosclerosis affects your arteries A fatty material (plaque) can build up in your arteries. This plaque makes it harder for blood to flow through them. A blood clot can then form on the plaque. It may block the artery, cutting off blood flow. This can cause conditions such as coronary artery disease (CAD) and peripheral arterial disease (PAD). ? CAD occurs when plaque builds up in the coronary arteries. These arteries supply the heart with oxygen-rich blood. This can lead to a heart attack. ? PAD occurs when plaque forms in leg arteries. The same things that cause CAD and PAD can also cause plaque to form in other arteries in your body, such as those in the brain. When plaque occurs in the brain, it raises your risk of stroke. What aspirin does Aspirin is a type of blood-thinner called an antiplatelet. Antiplatelets prevent your blood cells from clumping together, thereby stopping clots from forming. This reduces the risk of blockage. Aspirin can be taken daily if you are at high risk of or have already had a heart attack or stroke. It's also used after a procedure called a stent placement. During this procedure, a healthcare provider places a tiny wire mesh tube, or stent, into an artery to keep it open. Aspirin helps prevent blood clots from forming on the stent. Taking aspirin safely Tell your healthcare provider about any medicines you are taking. This includes: ? All prescription medicines ? Vpky-ncx-zrvrawy medicines ? Herbs, vitamins, and other supplements Also mention if you have a history of ulcers or bleeding problems. Ask whether you will need to stop taking aspirin before having surgery or dental work. Always take medicines as directed. Tips for taking aspirin ? Have a routine. For example, take aspirin with the same meal each day. ? Don?t take more than prescribed. A low dose gives the same benefit as a higher one, with a lower risk of side effects. ? Don?t skip doses. Aspirin needs to be taken each day to work well. ? Keep track of what you take. A pillbox with days of the week can help, especially if you take several medicines. Or use a list or chart to keep track. When to call your healthcare provider Side effects of aspirin are not usually serious. If you do have problems, changing your dose may help. Call your healthcare provider if you have any of the following: ? Excessive bruising (some bruising is normal) ? Nosebleeds, bleeding gums, or other excessive bleeding ? An upset stomach or stomach pain Last Reviewed Date: 2022 00:00:00 ?? [id number] [employer]. All rights reserved. This information is not intended as a substitute for professional medical care. Always follow your healthcare professional's instructions. * Discharge Summary - Anthony Keenan MD - 09/22/2024 2:32 PM EDT Images from the original note were not included. Hospitalization Admit Date/Time: 09/20/2024 9:25 PM Admitting Attending: Nathaly Nowak Discharge Date: 09/22/2024 Discharge Attending Physician: Nathaly Nowak MD PCP name and Address: Asad Victor MD (Inactive) [address] [place] [address] / [facility] [address] Referring provider name and address: Timothy Marques PA [address] [place] [address] Chief Concern, Brief History of Present Illness, and Hospital Course Mono Bobby is a 64 y.o. male with PMHx notable for COPD, CAD s/p PCI with pacemaker on Xarelto, T2DM, HLD, HTN, RLS who presented to 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 He reports this was from an access site for a procedure to treat rest pain where they used balloons. On review of imaging with radiologist, reported bleeding pattern was abnormal in nature, but did look contained and not actively extravasating. Arterial duplex was obtained that confirmed thepresence of a pseudoaneurysm . The pseudoaneurysm was injected with thrombin on 09/21 which he tolerated well without any complications. The day after the procedure repeat arterial duplex was obtained which showed the pseudoaneurysm was thrombosed. Patient's pain was controlled and he was able to ambulate. Given his rest pain, we are planning on bringing him back for a revascularization procedure. On the day of discharge, the patient is afebrile, hemodynamically stable, voiding spontaneously, tolerating a regular diet, and having bowel movements. Hispain is controlled with oral medications andheis ambulating. Hehas reached the maximum benefit of hospital admission and is being discharged home in stable condition. Surgeries and Procedures Procedures performed in this encounter Procedures Case Request Operating Room: CREATION, BYPASS, ARTERIAL, FEMORAL TO POPLITEAL Thrombin injection of left common femoral artery pseudoaneurysm - 09/21/24 Medication List .. amLODIPine 10 MG tablet Commonly known as: Norvasc Take 1 tablet by mouth daily. Aspirin Low Dose 81 MG EC tablet Generic drug: aspirin Take 1 tablet by mouth daily. insulin aspart protamine-insulin aspart (70-30) 100 UNIT/ML injection vial Commonly known as: NovoLOG Mix 70-30 Inject 12 Units under the skin 2 times a day with meals. insulin glargine 100 UNIT/ML injection vial Commonly known as: Lantus Inject 28 Units under the skin nightly. isosorbide mononitrate ER 60 MG 24 hr tablet Commonly known as: Imdur Take 1 tablet by mouth daily. lisinopril 10 MG tablet Take 1 tablet by mouth daily. metoprolol tartrate 100 MG tablet Commonly known as: Lopressor Take 1 tablet by mouth 2 times a day. oxyCODONE 5 MG immediate release tablet Commonly known as: Roxicodone Take 1 tablet by mouth every 6 hours as needed for severe pain for up to 3 days. pravastatin 40 MG tablet Commonly known as: Pravachol Take 1 tablet by mouth daily. rOPINIRole 1 MG tablet Commonly known as: Requip Take 1 tablet by mouth 2 times a day. tamsulosin 0.4 MG 24 hr capsule Commonly known as: Flomax Take 1 capsule by mouth every evening. Xarelto 2.5 MG tablet Generic drug: rivaroxaban Take 1 tablet by mouth 2 times a day. . insulin lispro protamine-insulin lispro (75-25) 100 UNIT/ML injection vial Commonly known as: HumaLOG Mix 75-25 Inject 12 Units under the skin 2 times a day with meals. Where to Get Your Medications These medications were sent to [facility] - [place], [place] - [address] [facility] [address] oxyCODONE 5 MG immediate release tablet Discharge Diagnosis Medical Problems Active and Resolved Hospital Problems Hospital * (Principal) Pseudoaneurysm of left femoral artery (CMS/HCC) Post Discharge Instructions Department of Surgery Division of Vascular Surgery Activity: - Move around as you are able, do not lift over 5 lbs for 6 weeks after surgery - Please do not drive while taking muscle relaxants or narcotics. Do not drive for two weeks, or until strength is regained to make sudden movements and cognitive/ spatial awareness is intact. - Hygiene: PLEASE SHOWER DAILY TO PREVENT SURGICAL INFECTION. No tub baths, hot tubs, saunas, pools, lakes, streams, ponds. Do not submerge incisions/ wounds in water. Diet: You may eat a regular diet Be sure to stay hydrated and take in plenty of fluid. Medications: - Pain: Take tylenol 1000mg every 6 hours for pain, if you still have pain, take oxycodone, one tabevery 6-8 hours as needed. - Blood thinners: You should start taking you home Asprin and Xeralto starting on 09/23. - Continue your home medications unless instructed otherwise at discharge. Wound care: Wash with soap and water daily. Pat to dry. [place]/ sutures will be removed at postoperative follow up in vascular clinic. Do not place any creams/ ointments/ oils/ lotions on surgical incisions. Notify PCP or nurse navigator if any cloudy, green, yellow, red, brown, odorous drainage occurs. Notify PCP for any redness, warmth, pain, or bleeding occurs around incision. If incision begi ns to bleed uncontrollably, hold pressure and call 911. Follow up: We will call you to schedule you next surgery. Questions: Call [phone] during business hours on weekdays or call [facility] after hours at [phone] to speak with a resident special weapons unit officer for Vascular Surgery after 5pm or on weekends if: - you have a fever > 101F - you are vomiting and cannot keep down liquids - your pain cannot be controlled with oral medications - if you start to have increased redness, drainage of pus, swelling, or increased pain around your incision - Difficulty breathing, headache or visual disturbances: Call 911 if you notice it's hard to breathcausing dizziness, loss of consciousness, pale or blue changes to skin color, rapid or shallow breathing, chest pain or pressure. Call 911 if you notice a significantly painful headache, loss of vision, or visual disturbances. You will receive a letter with your follow up appointment date/time in approximately 2 weeks if youdid not receive it at discharge. Please notify Vascular Surgery Nurse Navigator, Beni Carmona with any questions or concerns at [phone]. It is important that you get your scheduled imaging completed prior to your follow up appointment with your surgeon. We try our best to have your imaging and follow up appointment on the same day, it may not always be possible. Please bring your list of medications with you. Please bring your parking ticket in for validation. Outpatient Follow-Up No future appointments. Test Results Pending At Discharge None Pertinent Physical Exam At Time of Discharge Physical Exam Constitutional: General: He is not in acute distress. Appearance: He is not ill-appearing. Cardiovascular: Rate and Rhythm: Normal rate. Pulmonary: Effort: Pulmonary effort is normal. No respiratory distress. Comments: RA Abdominal: General: There is no distension. Palpations: Abdomen is soft. Tenderness: There is no abdominal tenderness. Musculoskeletal: Comments: LLE with some brusing. Minimal swelling in left groin. Skin: General: Skin is warm and dry. Neurological: General: No focal deficit present. Mental Status: He is alert. Psychiatric: Mood and Affect: Mood normal. Behavior: Behavior normal. Discharge Disposition/Condition Disposition: Home Condition: Stable (s/sx potential problems absent or manageable) I spent >30 minutes of patient care and instruction time in preparation for this discharge. Cosigned by Terrell Gautam MD at 09/23/2024 3:33 PM EDT Associated attestation - Terrell Gautam MD - 09/23/2024 3:33 PM EDT I saw and evaluated the patient with the resident/fellow. I discussed the case with the resident/fellow and agree with the findings and plan as documented. * Care Plan - Melecio Vega RN - 09/22/2024 9:22 AM EDT Problem: Adult Inpatient Plan of Care Goal: Absence of Hospital-Acquired Illness or Injury Intervention: Identify and Manage Fall Risk Flowsheets (Taken 09/22/2024 8327) Safety Promotion/Fall Prevention: activity supervised assistive device/personal items within reach clutter-free environment maintained fall prevention program maintained lighting adjusted mobility aid in reach nonskid shoes/slippers when out of bed room organization consistent safety round/check completed toileting scheduled Note: Patient will remain free from falls till 1900 and or end of shift. Problem: Pain Acute Goal: Optimal Pain Control and Function Intervention: Develop Pain Management Plan Flowsheets (Taken 09/22/2024920) Pain Management Interventions: medication (see MAR) Problem: Tissue Perfusion Altered Goal: Improved Tissue Perfusion Intervention: Optimize Tissue Perfusion Flowsheets (Taken 09/22/2024920) Pressure Reduction Techniques: frequent weight shift encouraged heels elevated off bed * Care Plan - Cristiane Rivas RN - 09/22/2024 12:38 AM EDT Problem: Adult Inpatient Plan of Care Goal: Patient-Specific Goal (Individualized) Outcome: Ongoing, Progressing Flowsheets Taken 09/22/202432 Anxieties, Fears or Concerns: pain , bleeding Taken 09/21/20241999 Patient/Family-Specific Goals (Include Timeframe): pt will remain free from falls/injury tonight Individualized Care Needs: safety, BM, urination Goal: Absence of Hospital-Acquired Illness or Injury Outcome: Ongoing, Progressing Intervention: Identify and Manage Fall Risk Flowsheets (Taken 09/22/202432) Safety Promotion/Fall Prevention: activity supervised lighting adjusted nonskid shoes/slippers when out of bed Intervention: Prevent Skin Injury Flowsheets (Taken 09/22/202432) Body Position: turned side-lying heels elevated Skin Protection: incontinence pads utilized Intervention: Prevent and Manage VTE (Venous Thromboembolism) Risk Flowsheets (Taken 09/22/202432) VTE Prevention/Management: medication Goal: Optimal Comfort and Wellbeing Outcome: Ongoing, Progressing Intervention: Monitor Pain and Promote Comfort Flowsheets (Taken 09/22/202432) Pain Management Interventions: medication (see MAR) pillow support provided Goal: Readiness for Transition of Care Outcome: Ongoing, Progressing Intervention: Mutually Develop Transition Plan Flowsheets (Taken 09/22/202432) Equipment Needed After Discharge: none Anticipated Changes Related to Illness: none Transportation Anticipated: family or friend will provide Transportation Concerns: none Patient/Family Anticipated Services at Transition: none Patient/Family Anticipates Transition to: home home with family * Significant Event - Dorene Moscoso MD - 09/21/2024 8:36 PM EDT Postop check S/p thrombin injection of left common femoral artery pseudoaneurysm today. Pt seen at bedside whileeating dinner. Pain controlled, tolerating diet. States his distal LLE feels about the same in terms of sensation compared to this morning. States he felt a lower abdominal fullness similar to a full bladder but also feels he may soon have a bowel movement and requests a stool softener to limit straining. Fullness sensation resolved prior to evaluation and bladder scan reportedly demonstrated very low volume. States diffuse proximal LLE ecchymoses resolving. Denies n/v/f/c, weakness. VS WNL aside from SBP in 160s on evaluation. NAD. Normal WOB. Groin access site soft, c/d/I under dressing. LLE noticeably swollen compared to RLE. LLE SILT all PN distributions and symmetric to RLE.Symmetric ankle plantar/dorsiflexion b/l. Easily identifiable doppler pulses LLE DP and PT. - Bowel reg - Continue strict bedrest - Regular diet - Repeat duplex 09/22 - [facility] - consider IO cath if sensation of full bladder returns * Care Plan - Leigh Slater RN - 09/21/2024 6:34 PM EDT Problem: Adult Inpatient Plan of Care Goal: Plan of Care Review Outcome: Ongoing, Progressing Flowsheets (Taken 09/21/20241828) Progress: improving Plan of Care Reviewed With: patient Goal: Patient-Specific Goal (Individualized) Outcome: Ongoing, Progressing Flowsheets Taken 09/21/2024 182 by Leigh Slater RN Anxieties, Fears or Concerns: pain Taken 09/21/2024 1800 by Raj Agee RN Patient/Family-Specific Goals (Include Timeframe): pt will remain free from falls/injury today Individualized Care Needs: safety Goal: Absence of Hospital-Acquired Illness or Injury Outcome: Ongoing, Progressing Goal: Optimal Comfort and Wellbeing Outcome: Ongoing, Progressing Goal: Readiness for Transition of Care Outcome: Ongoing, Progressing Problem: Pain Acute Goal: Optimal Pain Control and Function Outcome: Ongoing, Progressing Intervention: Optimize Psychosocial Wellbeing Flowsheets (Taken 09/21/2024 182) Supportive Measures: active listening utilized Problem: Tissue Perfusion Altered Goal: Improved Tissue Perfusion Outcome: Ongoing, Progressing Intervention: Optimize Tissue Perfusion Flowsheets (Taken 09/21/2024 182) Pressure Reduction Techniques: heels elevated off bed frequent weight shift encouraged * Progress Notes - Anthony Keenan MD - 09/21/2024 5:51 PM EDT Images from the original note were not included. [facility] Department of Surgery Division of Vascular Surgery Surgery Progress Note 09/21/24 Mono Bobby Subjective Subjective: HPI Mono Bobby is a 64 y.o. male with PMHx notable for COPD, CAD s/p PCI with pacemaker on Xarelto, T2DM, HLD, HTN, RLS who presented to 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 09/21: Thrombin injection of left common femoral artery pseudoaneurysm Interval: NAEON. He reports feeling well. Still having some groin pain. Duplex confirmed PSA. Discussed treatment with thrombin injection and pt would like to proceed. AF HDS RA No I/O Edited by: Anthony Keenan MD at 09/21/2024 4100 Review of Systems: Relevant review of systems was obtained as able and is negative unless stated above in HPI. Objective Objective: Vital signs: Vitals: 09/21/24 1401 BP: (!) 149/74 Pulse: 95 Resp: 19 Temp: 36.4 ??C (97.6 ??F) SpO2: 97% Physical Exam: Physical Exam Constitutional: General: He is not in acute distress. Appearance: He is not ill-appearing. Cardiovascular: Rate and Rhythm: Normal rate. Pulses: Dorsalis pedis pulses are 2+ on the right side and 2+ on the left side. Posterior tibial pulses are 2+ on the right side and 2+ on the left side. Pulmonary: Effort: Pulmonary effort is normal. No respiratory distress. Comments: RA Abdominal: General: There is no distension. Palpations: Abdomen is soft. Tenderness: There is no abdominal tenderness. Skin: General: Skin is warm and dry. Comments: Swelling in right leg Neurological: General: No focal deficit present. Mental Status: He is alert. Psychiatric: Mood and Affect: Mood normal. Behavior: Behavior normal. Intake/Output Summary (Last 24 hours) at 09/21/2024 1752 Last data filed at 09/21/2024 0617 Gross per 24 hour Intake -- Output 1300 ml Net -1300 ml Lines/Drains/Tubes: Patient Lines/Drains/Airways Status Active Airway None Output by Drain (mL) 09/19/24 0700 - 09/19/24 1859 09/19/24 1900 - 09/20/24 0659 09/20/24 0700 - 09/20/24 1859 09/20/24 1900 - 09/21/24 0659 09/21/24 0700 - 09/21/24 1752 Patient has no LDAs of requested type attached. Labs in last 18 hours: CBC WBC ?? Hb ?? Plt ?? Hct ?? ANC ?? INR ??, PTT ??, Anti-Xa ?? MCV ?? BMP Na ?? Cl ?? BUN ?? Glu ?? K ?? Co2 ?? Cr ?? Ca ?? iCa ?? Mg ??, Phos ?? Lactate ?? LFT AST ?? AlkPhos ?? T Prot ?? ALK ?? Bili ?? Alb ?? D.Bili ?? Lab Trends: H/H Results from last 7 days Lab Units 09/20/24 2233 HEMOGLOBIN g/dL 9.0* HEMATOCRIT % 27.2* INR Results from last 7 days Lab Units 09/20/24 2233 INR 1.1 Cr Results from last 7 days Lab Units 09/20/24 2233 CREATININE mg/dL 0.93 Lactate No lab exists for component: LACTTEVEN Imaging: VAS US Arterial Duplex Lower Extremity Unilateral Left; Pseudoaneurysm (PSA) Result Date: 09/21/2024 Left: Following thrombin injection of the common femoral artery pseudoaneurysm, no active flow is noted. Study suggests successful thrombin injection therapy. COMMUNICATION: Per this written report. Preliminary report signed by THOM Santiago on 09/21/2024 3:09 PM VAS US Arterial Duplex Lower Extremity Unilateral Left; Pseudoaneurysm (PSA) (Left groin) Result Date: 09/21/2024 Left: 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 The common femoral (distal to the pseudoaneurysm) and the superficial femoral arteries are occluded. COMMUNICATION: Prelim given to Anthony Keenan MD; RB Preliminary report signed by THOM Santiago on 09/21/2024 9:57 AM Radiographic Interpretation: I have reviewed the imaging above and agree with the radiologist interpretation. Medications reviewed. Vital signs reviewed. Labs reviewed. Assessment/Plan Assessment and Plan: Mono Bobby is a 64 y.o. male with PMHx notable for COPD, CAD s/p PCI with pacemaker on Xarelto, T2DM, HLD, HTN, RLS who presented to 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 Duplex today confirmed it was a pseudoaneurysm. Thrombin injection performed today. He tolerated the procedure well. POC later tonight. Plan: [ ] Post op check at 1999 - Continue strict bedrest - Regular diet - Duplex 09/21: showed [employer] DI[employer] DIES pseudoaneurysm - Repeat duplex 09/22 - [facility] Edited by: Anthony Keenan MD at 09/21/2024 7217 Dispo: Continue Current Level of Care Philipp Keenan MD General Surgery, PGY 1 Pager: [phone] Cosigned by Terrell Gautam MD at 09/23/2024 3:59 PM EDT Associated attestation - Terrell Gautam MD - 09/23/2024 3:59 PM EDT I saw and evaluated the patient with the resident/fellow. I discussed the case with the resident/fellow and agree with the findings and plan as documented. * Op Note - Terrell Gautam MD - 09/21/2024 3:28 PM EDT Operative Note Date: 09/21/24 Location: Emergency Department Bed 46 Name: Mono Bobby, : 1960, Diagnoses: Pre-op Diagnosis Left common femoral artery pseudoaneurysm Post-op Diagnosis Left common femoral artery pseudoaneurysm Procedure(s): Thrombin injection of left common femoral artery pseudoaneurysm Attending Surgeon(s): Terrell Gautam Power Distributor(s): Jerry Holcomb Anesthesia: local ASA: 3 Blood Administration: Blood Product Administration History None Estimated Blood Loss: 1 cc Findings: Successful thrombosis of the pseudoaneurysm sac Indications: Mono Bobby is an 64 y.o. male who is having surgery for a left common femoralartery pseudoaneurysm after lower extremity intervention. Risks of the procedure including intra arterial injection were discussed with the patient. After understanding these risks, patient elected to proceed to the operating room. Narrative: Patient was laid supine in the emergency department. The left groin was prepped and draped in the usual sterile fashion. A preoperative time-out was performed. Under ultrasound guidance, 10 cc of lidocaine was injected just above the pseudo sac. The spinal needle was then visualized entering the pseudoaneurysm sac is far away from the [place] artery as possible. Very slowly 0.2 cc of thrombus was injected with the immediate thrombosis of the sac. Postoperative duplex ultrasound confirmed pseudoaneurysm thrombosis with a patent common femoral and profunda femoral artery. Injection site was covered in a sterile dressing. Dr. Terrell Gautam was present and scrubbed for all critical portions of the operation. There were NO signs of surgical site infection (SSI) present at the time of surgery (PATOS). Complications: None; patient tolerated the procedure well. Submitted by: Jerry Holcomb MD - 09/21/2024 I saw and evaluated the patient with the resident/fellow. I discussed the case with the resident/fellow and agree with the findings and plan as documented. Terrell Gautam MD * H&P - Shaila Lord - 09/20/2024 11:22 PM EDTAssociated Order(s): Consult to Vascular Surgery Images from the original note were not included. [facility] Department of Surgery Division of Vascular Surgery History & Physical Note Reason for Consult: L fem PSA Requesting Service: Emergency Department Consult Date and Time: 09/20/2024 0130 Consult to Vascular Surgery Consult performed by: Shaila Lord Consult ordered by: Robbie Braxton MD Subjective History of Present Illness: Chief Complaint: Groin pain Mono Bobby is a 64 y.o. male with PMHx significant for COPD, CAD s/p PCI with pacemaker onXarelto, T2DM, HLD, HTN, RLS who presented to the [facility] on 09/20/2024 as a transfer from an outside hospital due to an access site complication. The patient reports that he had an operation atan outside hospital on 09/[address] left leg stents. He reports he woke up and noticed the providers holding extensive pressure on his left groin. He stayed overnight from this hospital procedure and then was discharged home. He followed up with his primary care provider today in the office, who had concern regarding his access site and sent him to an outside hospital to be evaluated. At that time, the patient presented to [facility] and underwent an updated CTA which demonstrated concern for a left common femoral artery pseudo aneurysm. He was transferred to the [facility] for a higher level of care. On arrival to the emergency department, the patient had laboratory workup significant for a minor leukocytosis of 13.3, hemoglobin & hematocrit were stable at 9 & 27 respectively. Vascular surgery was consulted upon arrival. At the bedside, the patient reports he has been having intermittent left groin pain since he has been home from the procedure. He denies any difficulty with loss of sensation or motor function, but does note he has crampy bilateral leg pain which was similar to before his procedure. He denies missing doses of his blood thinners. He reports occasional nicotine use, but uses marijuana daily. Review of Systems: Relevant review of systems was obtained as able and is negative unless stated above in HPI. History Obtained From: Patient Past Medical History: Past Medical History[1] Allergies And Reactions: Allergies[2] Past Surgical History: Surgical History[3] Family Medical History: Family History[4] Reviewed and Non-contributory Social History: Social History Socioeconomic History Marital status: Spouse name: Not on file Number of children: Not on file Years of education: Not on file Highest education level: Not on file Occupational History Not on file Tobacco Use Smoking status: Former Passive exposure: Past Smokeless tobacco: Never Substance and Sexual Activity Alcohol use: Not Currently Comment: holidays/special occasions Drug use: Yes Types: Marijuana Comment: Drug use: Marijuana Sexual activity: Not on file Other Topics Concern Not on file Social History Narrative Number of children Marital Status: Social Drivers of Health Financial Resource Strain: Not on file Food Insecurity: Not on file Transportation Needs: Not on file Physical Activity: Not on file Stress: Not on file Social Connections: Not on file Intimate Partner Violence: Not on file Housing Stability: Not on file Immunizations: Immunization History Administered Date(s) Administered Influenza, injectable, MDCK, preservative free, quadrivalent 02/06/2021 Influenza, injectable, quadrivalent, preservative free 03/05/2019, 03/11/2020 Pneumococcal Polysaccharide PPV23 03/11/2020 Zoster, Recombinant 12/10/2020 I have updated and confirmed the past medical, surgical, family and social history. Home Medications: Prior to Admission medications Medication Sig Start Date End Date Taking? Authorizing Provider amLODIPine (Norvasc) 10 MG tablet Take 1 tablet (10 mg) by mouth 1 (one) time each day. 09/28/22 Darby Camara MD Aspirin Low Dose 81 MG EC tablet Take 1 tablet (81 mg) by mouth 1 (one) time each day. 09/28/22 Darby Camara MD bacitracin 500 UNIT/GM ointment Apply to abrasions BID Patient not taking: Reported on 10/07/2022 10/20/21 Giovanna Junior, RN insulin aspart protamine-insulin aspart (NovoLOG Mix 70-30) (70-30) 100 UNIT/ML injection Inject 15Units under the skin 2 (two) times a day with meals. Darby Camara MD insulin glargine (Lantus) 100 UNIT/ML injection Inject 0.28 mL (28 Units) under the skin every night. Darby Camara MD isosorbide mononitrate ER (Imdur) 60 MG 24 hr tablet Take 1 tablet (60 mg) by mouth 1 (one) time each day. 01/31/19 Darby Camara MD lisinopril 10 MG tablet Take 0.5 tablets (5 mg) by mouth 1 (one) time each day. 03/25/19 Darby Camara MD methocarbamol (Robaxin) 500 MG tablet Take 1 tablet (500 mg total) by mouth every 8 (eight) hours for 10 days. 10/20/21 10/30/21 Giovanna Junior RN metoprolol tartrate (Lopressor) 100 MG tablet Take 1 tablet (100 mg) by mouth 2 (two) times a day. 08/29/16 Darby Camara MD nitroglycerin (Nitrostat) 0.4 MG SL tablet DISSOLVE 1 TABLET UNDER THE TONGUE EVERY 5 MINUTES NEEDED FOR CHEST PAIN. DO NOT EXCEED A TOTAL OF 3 DOSES IN 15 MINUTES. IF NO RELIEF AFTER 3 DOSES [id number]/GO TO ER 11/02/21 Darby Camara MD pravastatin (Pravachol) 80 MG tablet Take 1 tablet (80 mg) by mouth 1 (one) time each day. 03/28/19 Darby Camara MD rOPINIRole (Requip) 1 MG tablet Take 1 tablet (1 mg) by mouth 3 (three) times a day. Darby Camara MD tamsulosin (Flomax) 0.4 MG 24 hr capsule Take 1 capsule (0.4 mg) by mouth 1 (one) time each day in the evening. 09/30/22 Darby Camara MD Xarelto 2.5 MG tablet Take 1 tablet (2.5 mg) by mouth. 09/20/22 Darby Camara MD Anti-Thrombotic Medications: Is this patient taking warfarin, new oral anti-coagulant, or anti-platelet medication? Yes If Yes, What Medication: Rivaroxaban (Xarelto) & ASA81 Current Hospital Medications: Current Medications[5] Objective Objective: Visit Vitals BP (!) 148/60 (BP Location: Left arm, Patient Position: Sitting) Pulse 72 Temp 36.3 ??C (97.3 ??F) (Esophageal) Ht 1.702 m (5' 7 ) Wt 98.8 kg (217 lb 13 oz) SpO2 98% BMI 34.11 kg/m?? Physical Exam Vitals reviewed. Constitutional: General: He is not in acute distress. Appearance: Normal appearance. HENT: Head: Normocephalic. Mouth/Throat: Mouth: Mucous membranes are moist. Cardiovascular: Rate and Rhythm: Normal rate. Pulses: Femoral pulses are 2+ on the right side and 3+ on the left side. Dorsalis pedis pulses are detected w/ Doppler on the right side and detected w/ Doppler on the leftside. Posterior tibial pulses are detected w/ Doppler on the right side and detected w/ Doppler on the left side. Comments: Left groin swollen, firm and tender to touch. Faintly pulsatile, but no skin break down. EKG strip with signs of biventricular pacing. Pulmonary: Effort: Pulmonary effort is normal. No respiratory distress. Abdominal: General: Abdomen is flat. There is no distension. Tenderness: There is no abdominal tenderness. There is no guarding or rebound. Comments: Extensive bruising around left lower quadrant and into left flank area. Musculoskeletal: Left lower leg: Edema (Mild) present. Comments: Bruising down left medial leg and into superior knee area. Mild erythema of left calf, without tenderness to touch. Skin: General: Skin is warm. Capillary Refill: Capillary refill takes less than 2 seconds. Coloration: Skin is pale. Neurological: General: No focal deficit present. Mental Status: He is alert and oriented to person, place, and time. Psychiatric: Mood and Affect: Mood normal. Behavior: Behavior normal. Laboratory: CBC WBC 13.38 (H) Hb 9.0 (L) Plt 407 (H) Hct 27.2 (L) ANC 10.28 (H) INR ??, PTT ??, Anti-Xa ?? MCV 94 BMP Na 134 (L) Cl 101 BUN 27 (H) Glu 170 (H) K 5.0 (H) Co2 22 Cr 0.93 Ca 9.1 iCa ?? Mg ??, Phos ?? Lactate ?? LFT AST 11 AlkPhos 132 (H) T Prot 6.6 ALK 16 Bili 0.6 Alb ?? D.Bili ?? Imaging: CT OSH: read - Moderate size complex pseudoaneurysm left common femoral artery with moderate surrounding hemorrhage. Long segment chronic left SFA occlusion. Moderate right SFA and popliteal disease with two-vessel runoff. Radiographic Interpretation: I have reviewed the imaging above, there is evidence of large left CFAPSA measuring around 2.3 cm in maximum diameter in the axial view; lobulated appearance with evidence of active extravasation Assessment/Plan Assessment & Plan: Mono Bobby is a 64 y.o. male with PMHx notable for COPD, CAD s/p PCI with pacemaker on Xarelto, T2DM, HLD, HTN, RLS who presented to 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 On review of imaging with radiologist, reported bleeding pattern was abnormal in nature, butdid look contained and not actively extravasating. On exam, the patient is hemodynamically stable and well-appearing, he has a edematous left groin with tenderness throughout, and a family pulsatile mass, but has appropriate distal signals. After discussion, the patient does not require emergent surgical intervention, however, would likely benefit from more urgent repair. We discussed admission to the hospital and ongoing surgical planning. Plan: - Admit to [facility] - Strict bedrest - NPO, mIVF - Will discuss surgical options in the morning Dispo: Admit to [facility] CODE STATUS: full code This Consult, Assessment, and Plan has been discussed with Dr. Nowak, Attending Physician Shaila Lord [1] Past Medical History: Diagnosis Date Arthritis Old myocardial infarction History of myocardial infarction [2] No Known Allergies [3] Past Surgical History: Procedure Laterality Date ANKLE SURGERY Right CAROTID ENDARTERECTOMY N/A Endarterectomy Carotid Artery from [facility] CORONARY ANGIOPLASTY Left Coronary Angiography With Concomitant Left Heart Catheterization from [facility] CORONARY ARTERY BYPASS GRAFT N/A CABG from [facility] ELBOW SURGERY Right OTHER SURGICAL HISTORY N/A Reported Prior Surgical / Procedural History from [facility] [4] Family History Problem Relation Name Age of Onset COPD Mother Diabetes Sister [5] No current facility-administered medications for this encounter. Current Outpatient Medications Medication Sig Dispense Refill amLODIPine (Norvasc) 10 MG tablet Take 1 tablet (10 mg) by mouth 1 (one) time each day. Aspirin Low Dose 81 MG EC tablet Take 1 tablet (81 mg) by mouth 1 (one) time each day. bacitracin 500 UNIT/GM ointment Apply to abrasions BID (Patient not taking: Reported on 10/07/2022) 14 g 0 insulin aspart protamine-insulin aspart (NovoLOG Mix 70-30) (70-30) 100 UNIT/ML injection Inject 15Units under the skin 2 (two) times a day with meals. insulin glargine (Lantus) 100 UNIT/ML injection Inject 0.28 mL (28 Units) under the skin every night. isosorbide mononitrate ER (Imdur) 60 MG 24 hr tablet Take 1 tablet (60 mg) by mouth 1 (one) time each day. lisinopril 10 MG tablet Take 0.5 tablets (5 mg) by mouth 1 (one) time each day. methocarbamol (Robaxin) 500 MG tablet Take 1 tablet (500 mg total) by mouth every 8 (eight) hours for 10 days. 30 tablet 0 metoprolol tartrate (Lopressor) 100 MG tablet Take 1 tablet (100 mg) by mouth 2 (two) times a day. nitroglycerin (Nitrostat) 0.4 MG SL tablet DISSOLVE 1 TABLET UNDER THE TONGUE EVERY 5 MINUTES NEEDED FOR CHEST PAIN. DO NOT EXCEED A TOTAL OF 3 DOSES IN 15 MINUTES. IF NO RELIEF AFTER 3 DOSES [id number]/GO TO ER pravastatin (Pravachol) 80 MG tablet Take 1 tablet (80 mg) by mouth 1 (one) time each day. rOPINIRole (Requip) 1 MG tablet Take 1 tablet (1 mg) by mouth 3 (three) times a day. tamsulosin (Flomax) 0.4 MG 24 hr capsule Take 1 capsule (0.4 mg) by mouth 1 (one) time each day in the evening. Xarelto 2.5 MG tablet Take 1 tablet (2.5 mg) by mouth. Cosigned by Nathaly Nowak MD at 09/24/2024 10:18 AM EDT Associated attestation - Nathaly Nowak MD - 09/24/2024 10:18 AM EDT I saw and evaluated the patient with the resident/fellow. I discussed the case with the resident/fellow and agree with the findings and plan as documented. * ED Provider Notes - Nestor Tyler DO - 09/20/2024 9:22 PM EDT - HPI No chief complaint on file. This is a 64-year-old male patient, with a past medical history of COPD, CAD status post multiple coronary stents, atrial fibrillation anticoagulated on Xarelto, and peripheral arterial disease, who is presenting to the emergency department today as transfer from outside hospital for evaluation of a left femoral pseudoaneurysm. The patient had a left lower extremity stent placed on September 12t an outside hospital. He was following up with the his interventional list today in the clinic and they noted ecchymosis and induration to the left thigh accompanied by pain and [facility] In the emergency department they obtained a CTA with runoff of the lower extremities which found a left-sided femoral pseudoaneurysm. The patient was transferred here for higher level of care. He has not had any lower extremity pallor, pain, weakness, or sensory changes. History provided by: Patient and medical records signals analyst used: No Patient History Past Medical History[1] Surgical History[2] Family History[3] Social History[4] Allergies: Allergies[5] Physical Exam ED Triage Vitals [09/20/24 2133] Temp Heart Rate Resp BP 36.3 ??C (97.3 ??F) 72 15 (!) 148/60 SpO2 Temp Source Heart Rate Source Patient Position 97 % Esophageal Monitor Sitting BP Location FiO2 (%) Left arm -- Physical Exam Constitutional: Appearance: He is ill-appearing (Chronic). HENT: Head: Normocephalic and atraumatic. Right Ear: External ear normal. Left Ear: External ear normal. Mouth/Throat: Mouth: Mucous membranes are moist. Pharynx: Oropharynx is clear. Eyes: Pupils: Pupils are equal, round, and reactive to light. Cardiovascular: Rate and Rhythm: Normal rate. Heart sounds: Normal heart sounds. Pulmonary: Effort: Pulmonary effort is normal. No respiratory distress. Abdominal: General: Bowel sounds are normal. There is no distension. Palpations: Abdomen is soft. Tenderness: There is no abdominal tenderness. There is no rebound. Musculoskeletal: General: Swelling and tenderness present. Cervical back: Neck supple. Comments: Ecchymoses and tenderness over the left groin. Skin: General: Skin is warm and dry. Coloration: Skin is not pale. Findings: No rash. Neurological: General: No focal deficit present. Mental Status: He is alert and oriented to person, place, and time. Psychiatric: Mood and Affect: Mood normal. Behavior: Behavior normal. Rigo Coma Scale Score: 15 ED Course & MDM - Assessment: 64 y.o. male presents to ED with complaint of left groin tenderness and edema. It should be noted that the chronic conditions includes COPD, CAD status post multiple coronary stents, atrial fibrillation anticoagulated on Xarelto s/p perc stent placement 09/12 which currently is not at goal therapy.This complicates the clinical picture because it Comorbidities: may be exacerbating symptoms and increases the amount and complexity of data to be reviewed On initial evaluation of the patient they were resting comfortably in no acute distress and nontoxic in appearance. They are hemodynamically stable, saturating well on room air, and are neurologically intact. On examination of the patient he has some ecchymosis in the left groin that has been come gravity dependent and tracked down the thigh. The ecchymosis does extend immediately to the penis. Over the femoral artery he does have a palpable pulse and some cutaneous induration without evidence of infection. Differential Diagnosis: femoral arterial aneurysm, femoral arterial pseudoaneurysm, hematoma, seroma, hernia, infection, among others. In order to fully explore the differential diagnosis the following treatments and tests were ordered: ED Medication Administration from 09/20/2024 1849 to 09/21/2024 0103 Date/Time Order Dose Route Action 09/20/20242231 EDT ondansetron ODT (Zofran-ODT) disintegrating tablet 4 mg 4 mg Oral Given All Other Orders Ordered Status Ordering Provider 09/21/24 010 Consult to Vascular Surgery Once Specialty: Vascular Surgery Provider: (Not yet assigned) Ordered NESTRO TYLER 09/20/242223 CMP STAT Final result NESTOR TYLER 09/20/242223 CBC w/diff STAT Final result NESTOR TYLER 09/20/242223 PT-INR STAT Final result NESTOR TYLER 09/20/242223 APTT STAT Final result NESTOR TYLER 09/20/242223 Hepatitis C Antibody - ED Once Final result NESTOR TYLER 09/20/242223 ED Protocol - HIV 1/2 Antibody/Antigen Screen Once Final result NESTOR TYLER 09/20/242223 ED HIV 1/2 Antibody/Antigen Screen w/Reflex to HIV 1/2 Differentiation PROCEDURE ONCE Final result NESTOR TYLER Labs personally interpreted by me demonstrate no actionable abnormalities. While the patient was in the emergency department we did administer 4 mg of Zofran. On repeat reassessment he was resting comfortably and in no acute distress. I have reviewed imaging records from OSH which show the following: - Scrotal US: Normal right testis scrotum. 1.9 cm hypoechoic structure left scrotum could representatrophic testis, mass or chronic hematoma. - CTA Abdomen/Pelvis/Lower Extrem w/ Runoff: Moderate size complex pseudoaneurysm left common femoral artery with moderate surrounding hemorrhage. Long segment chronic left SFA occlusion. Moderate right SFA and popliteal disease with two-vessel runoff. Based on this patient's workup at outside hospital, I have had an interactive discussion with the vascular surgery service who has agreed to evaluate the patient in the emergency department. After our discussion and their evaluation they have agreed to admit the patient to their service and accept primary responsibility of the patient moving forward. Clinical Impressions as of 09/21/24 0103 Pseudoaneurysm of left femoral artery (CMS/HCC) Social Determinates of Health Risks (including Economic Stability, Education and level of understanding, Healthcare access and quality and concerning social factors): Chronic tobacco use Ultimately, this patient was Was admitted (Admission) The encounter diagnosis was Pseudoaneurysm of left femoral artery (CMS/HCC).. Patient believed to require admission for the listed diagnoses. The vascular surgery service was consulted for admission and was agreeable to admit to Acute Floor (Med/Surg). - Clare Brewer, MS4 I Nestor Tyler DO saw and evaluated the patient with the medical student. I discussed the case with the medical student and agree with the findings and plan as documented. I personally performed the Exam and Medical Decision Making. [1] Past Medical History: Diagnosis Date Arthritis Old myocardial infarction History of myocardial infarction [2] Past Surgical History: Procedure Laterality Date ANKLE SURGERY Right CAROTID ENDARTERECTOMY N/A Endarterectomy Carotid Artery from [facility] CORONARY ANGIOPLASTY Left Coronary Angiography With Concomitant Left Heart Catheterization from [facility] CORONARY ARTERY BYPASS GRAFT N/A CABG from [facility] ELBOW SURGERY Right OTHER SURGICAL HISTORY N/A Reported Prior Surgical / Procedural History from [facility] [3] Family History Problem Relation Name Age of Onset COPD Mother Diabetes Sister [4] Tobacco Use Smoking status: Former Passive exposure: Past Smokeless tobacco: Never Substance Use Topics Alcohol use: Not Currently Comment: holidays/special occasions Drug use: Yes Types: Marijuana Comment: Drug use: Marijuana [5] No Known Allergies Nestor Tyler DO Resident 09/21/24 0103 Cosigned by Robbie Braxton MD at 09/25/2024 7:16 PM EDT Associated attestation - Robbie Braxton MD - 09/25/2024 7:16 PM EDT I, Robbie Braxton MD, personally verified the history, examined the patient, discussed with the student and resident and performed the medical decision making. I agree with the documentation andplan of care. * ED Triage Notes - Ana Maria Corea - 09/20/2024 9:22 PM EDT Arrived from [facility]4 pt transferred from [facility] c/o left groin pain pt had stent x2 on 09/12 went to cardiology and was told to go to hospital. documented in this encounter Plan of Treatment Upcoming Encounters Date Type Department Care Team (Late st Contact Info) Description 11/26/2024 2:00 PM EDT Appointment [facility] [address] [place] [address] 11/26/2024 2:30 PM EDT Appointment [facility] [address] [place] [address] 11/26/2024 3:20 PM EDT Office Visit [facility] [address] [place] [address] Elisabet Schuster PA [address] [place] [address] 11/29/2024 2:30 PM EDT Office Visit [facility] [address] [place] [address] Oscar Appiah MD [address] [place] [address] documented as of this encounter Procedures Procedure Name Priority Date/Time Associated Diagnosis Comments POCT GLUCOSE METER UNSOLICITED RESULTS Routine 09/22/2024 11:06 AM EDT VAS US ARTERIAL DUPLEX LOWER EXTREMITY UNILATERAL Routine 09/22/2024 10:50 AM EDT POCT GLUCOSE METER UNSOLICITED RESULTS Routine 09/22/2024 7:19 AM EDT CBC W/O DIFFERENTIAL Routine 09/22/2024 3:49 AM EDT PHOSPHORUS, PLASMA Routine 09/22/2024 3: 49 AM EDT MAGNESIUM, PLASMA Routine 09/22/2024 3:4 9 AM EDT BASIC METABOLIC PANEL, PLASMA Routine 09/22/2024 3:49 AM EDT POCT GLUCOSE METER UNSOLICITED RESULTS Routine 09/21/2024 8:45 PM EDT POCT GLUCOSE METER UNSOLICITED RESULTS Routine 09/21/2024 5:09 PM EDT VAS US ARTERIAL DUPLEX LOWER EXTREMITY UNILATERAL Routine 09/21/2024 2:38 PM EDT Pseudoaneurysm of left femoral artery (CMS/HCC) POCT GLUCOSE METER UNSOLICITED RESULTS Routine 09/21/2024 1:04 PM EDT POCT GLUCOSE METER UNSOLICITED RESULTS Routine 09/21/2024 12:24 PM EDT VAS US ARTERIAL DUPLEX LOWER EXTREMITY UNILATERAL STAT 09/21/2024 9:35 AM EDT POCT GLUCOSE METER UNSOLICITED RESULTS Routine 09/21/2024 7:55 AM EDT POCT GLUCOSE METER UNSOLICITED RESULTS Routine 09/21/2024 6:06 AM EDT POCT GLUCOSE METER UNSOLICITED RESULTS Routine 09/21/2024 2:27 AM EDT ECG ADULT STAT 09/21/2024 2:00 AM EDT ED HIV 1/2 ANTIBODY/ANTIGEN SCREEN WITH REFLEX TO HIV I/II DIFFERENTIATION STAT 09/20/2024 10:33 PM EDT ED PROTOCOL HIV 1/2 ANTIBODY/ANTIGEN SCREEN W/REFLEX TO HIV 1/2 ANTIBODY DIFFERENTIATION STAT 09/20/2024 10:33 PM EDT HEPATITIS C ANTIBODY - ED W/REFLEX TO HCV QUANT PCR STAT 09/20/2024 10:33 PM EDT APTT STAT 09/20/2024 10:33 PM EDT PROTHROMBIN TIME(PT) / INR STAT 09/20/2024 10:33 PM EDT CBC WITH AUTO DIFFERENTIAL STAT 09/20/2024 10:33 PM EDT COMPREHENSIVE METABOLIC PANEL, PLASMA STAT 09/20/2024 10:33 PM EDT documented in this encounter Results * (ABNORMAL) POCT glucose meter (09/22/2024 11:06 AM EDT) POCT Glucose 190(H) 74 - 99 mg/dL 09/22/2024 11:11 AM EDT [facility] Comment:Accuracy of a glucos e result obtained from a capillary whole blood specimen relies upon adequate, non-compromised capillary blood flow. If the capillary glucose result is not consistent with the patient's clinical signs and symptoms, glucose testing should be repeated with either an arterial or venous sample on the glucometer or sent to the main labortory for testing. Comment 09/22/2024 11:11 AM EDT [facility] Burring Machine Operator ID Zena Rios [id number] 11:11 AM EDT [facility] Device ID [id number] 09/22/2024 11:11 AM EDT [facility] Specimen Type POC Capillary 09/22/2024 11:11 AM EDT [facility] Blood Capillary blood specimen / Unknown 09/22/2024 11:06 AM EDT 09/22/2024 11:11 AM EDT us Nathaly Nowak MD LAB POINT OF CARE TE ST DOCKED DEVICE UNSOLICITED RESULTS Final Result Performing Organization Address City/State/[facility] Co de Phone Number [facility] [address] [place] [address] * VAS US Arterial Duplex Lower Extremity Unilateral Left; Pseudoaneurysm (PSA) (09/22/2024 10:50 AM EDT) Anatomical Region Laterality Modality Lower Extremities Ultrasound Impressions 09/22/2024 7:15 PM EDT Left: Following thrombin injection of the common femoral artery pseudoaneurysm on 09/21/2024, no active flow is noted. Study suggests successful thrombin injection therapy. COMMUNICATION: Per this written report. Preliminary report signed by THOM Santiago on 09/22/2024 11:04 AM By electronically signing this report, I, the attending physician, attest that I have personally reviewed the images/data for the above examination(s) and I agree with the final edited report. Drafted by THOM Santiago on 09/22/2024 11:01 AM Final report signed by Neil Isaac MD on 09/22/2024 7:15 PM Narrative 09/22/2024 7:15 PM EDT CLINICAL INDICATION: s/p L FINISHER FINE DIAMOND DIES pseudoaneurysm injection TECHNIQUE: Non-invasive, real time duplex exam of the lower extremity arterial circulation with Doppler ultrasonic waveform and spectral analysis was performed. COMPARISON: Post pseudoaneurysm thrombin injection arterial duplex performed 09/21/2024; Following thrombin injection of the left common femoral artery pseudoaneurysm, no active flow is noted. Study suggests successful thrombin injection therapy FINDINGS: Left: Following thrombin injection, an echogenic thrombus is noted within the pseudoaneurysm sac. Color and pulsed Doppler analysis demonstrates an absence of flow within the pseudoaneurysm sac. The following flow velocities were obtained: FINISHER FINE DIAMOND DIES: 114 cm/s SFA: 0 cm/s PFA: 278 cm/s Popliteal A: 41 cm/s GROUND CREW LINESMAN distal: 43 cm/s DPA: 67 cm/s Pseudoaneurysm sac: 0 cm/s Procedure Note Neil Isaac MD - 09/22/2024 CLINICAL INDICATION: s/p L FINISHER FINE DIAMOND DIES pseudoaneurysm injection TECHNIQUE: Non-invasive, real time duplex exam of the lower extremity arterialcirculation with Doppler ultrasonic waveform and spectral analysis wasperformed. COMPARISON: Post pseudoaneurysm thrombin injection arterial duplex byibmbkky51/28/2025; Following thrombin injection of the left common femoral arterypseudoaneurysm, no active flow is noted. Study suggests successfulthrombin injection therapy FINDINGS: Left: Following thrombin injection, an echogenic thrombus is noted within thepseudoaneurysm sac. Color and pulsed Doppler analysis demonstrates anabsence of flow within the pseudoaneurysm sac. The following flowvelocities were obtained: FINISHER FINE DIAMOND DIES: 114 cm/s SFA: 0 cm/s PFA: 278 cm/s Popliteal A: 41 cm/s GROUND CREW LINESMAN distal: 43 cm/s DPA: 67 cm/s Pseudoaneurysm sac: 0 cm/s IMPRESSION: Left: Following thrombin injection of the common femoral arterypseudoaneurysm on 09/21/2024, no active flow is noted. Study suggestssuccessful thrombin injection therapy. COMMUNICATION: Per this written report. Preliminary report signed by THOM Santiago on 09/22/2024 11:04 AM By electronically signing this report, I, the attending physician, attestthat I have personally reviewed the images/data for the aboveexamination(s) and I agree with the final edited report. Drafted by THOM Santiago on 09/22/2024 11:01 AM Final report signed by Neil Isaac MD on 09/22/2024 7:15 PM Nathaly Nowak MD CV VASCULAR PROCEDURES Final Re sult * (ABNORMAL) POCT glucose meter (09/22/2024 7:19 AM EDT) POCT Glucose 150(H) 74 - 99 mg/dL 09/22/2024 7:22 AM EDT [facility] Comment:Accuracy of a glucos e result obtained from a capillary whole blood specimen relies upon adequate, non-compromised capillary blood flow. If the capillary glucose result is not consistent with the patient's clinical signs and symptoms, glucose testing should be repeated with either an arterial or venous sample on the glucometer or sent to the main labortory for testing. Comment 09/22/2024 7:22 AM EDT [facility] Burring Machine Operator ID Zena Rios 025 7:22 AM EDT [facility] Device ID [id number] 09/22/2024 7:22 AM EDT [facility] Specimen Type POC Capillary 09/22/2024 7:22 AM EDT [facility] Blood Capillary blood specimen / Unknown 09/22/2024 7:19 AM EDT 09/22/2024 7:22 AM EDT Nathaly Nowak MD LAB POINT OF CARE TE ST DOCKED DEVICE UNSOLICITED RESULTS Final Result [facility] [address] [place] [address] * Magnesium (09/22/2024 3:49 AM EDT) Magnesium, Plasma 2.1 1.9 - 2.4 mg/dL 09/22/2024 4:49 AM EDT [facility] Blood Venous blood specimen / Unknown Venipuncture / Unknown 09/22/2024 3:49 AM EDT 09/22/2024 4:12 AM EDT Nathaly Nowak MD LAB BLOOD ORDERABLES Final Resu lt [facility] [address] [place] [address] * Phosphorus (09/22/2024 3:49 AM EDT) Phosphorus, Plasma 2.9 2.5 - 4.5 mg/dL 09/22/2024 4:49 AM EDT [facility] Blood Venous blood specimen / Unknown Venipuncture / Unknown 09/22/2024 3:49 AM EDT 09/22/2024 4:12 AM EDT us aNthaly Nowak MD LAB BLOOD ORDERABLES Final Resu lt Performing Organization Address [facility]/ZIP Co de Phone Number [facility] [address] [place] [address] * (ABNORMAL) Basic metabolic panel (09/22/2024 3:49 AM EDT) Pathologist [facility] Glucose, Plasma 132(H) 74 - 99 mg/dL 09/22/2024 4:49 AM EDT [facility] BUN, Plasma 15 8 - 23 mg/dL 09/22/2024 4:49 AM EDT [facility] Creatinine, Plasma 0.78 0.70 - 1.20 mg/dL 09/22/2024 4:49 AM EDT [facility] BUN/Creatinine Ratio 19 09/22/2024 4:49 AM EDT [facility] Sodium, Plasma 137 136 - 145 mmol/L 09/22/2024 4:49 AM EDT [facility] Potassium, Plasma 4.5 3.6 - 4.9 mmol/L 09/22/2024 4:49 AM EDT [facility] Chloride, Plasma 104 97 - 107 mmol/L 09/22/2024 4:49 AM EDT [facility] CO2, Plasma 24 22 - 29 mmol/L 09/22/2024 4:49 AM EDT [facility] Anion Gap 9 6 - 16 mmol/L 09/22/2024 4:49 AM EDT [facility] Total Calcium, Plasma 9.2 8.9 - 10.2 mg/dL 09/22/2024 4:49 AM EDT [facility] eGFRcr 99.0 mL/min/1.7 3m*2 09/22/2024 4:49 AM EDT [facility] Comment:Reported eGFRcr in m L/min/1.73m2 is based the CKD-EPI 2020 equation that does not use a race coefficient. Blood Venous blood specimen / Unknown Venipuncture / Unknown 09/22/2024 3:49 AM EDT 09/22/2024 4:12 AM EDT us Nathaly Nowak MD LAB BLOOD ORDERABLES Final Resu lt [facility] [address] [place] [address] * (ABNORMAL) CBC (09/22/2024 3:49 AM EDT) WBC Count 11.68(H) 3.70 - 10.30 10*3/uL LAB HEMATOLOGY METHOD 09/22/2024 4:26 AM EDT [facility] RBC Count 2.89(L) 4.60 - 6.10 10*6/uL LAB HEMATOLOGY METHOD 09/22/2024 4:26 AM EDT [facility] HGB 8.9(L) 13.7 - 17.5 g/dL LAB HEMATOLOGY METHOD 09/22/2024 4:26 AM EDT [facility] HCT 26.7(L) 40.0 - 51.0 % LAB HEMATOLOGY METHOD 09/22/2024 4:26 AM EDT [facility] Platelet Count 454(H) 155 - 369 10*3/uL LAB HEMATOLOGY METHOD 09/22/2024 4:26 AM EDT [facility] MCV 92 79 - 98 fL LAB HEMATOLOGY METHOD 09/22/2024 4:26 AM EDT [facility] MCH 30.8 26.0 - 32.0 pg LAB HEMATOLOGY METHOD 09/22/2024 4:26 AM EDT [facility] MCHC 33.3 30.7 - 35.5 g/dL LAB HEMATOLOGY METHOD 09/22/2024 4:26 AM EDT [facility] RDW 13.6 11.5 - 14.5 % LAB HEMATOLOGY METHOD 09/22/2024 4:26 AM EDT [facility] MPV 8.8 8.8 - 12.5 fL LAB HEMATOLOGY METHOD 09/22/2024 4:26 AM EDT [facility] nRBC 0.0 <=0.0 per 100 WBCs LAB HEMATOLOGY METHOD 09/22/2024 4:26 AM EDT [facility] Blood Venous blood specimen / Unknown Venipuncture / Unknown 09/22/2024 3:49 AM EDT 09/22/2024 4:14 AM EDT us Nathaly Nowak MD LAB BLOOD ORDERABLES Final Resu lt Performing Organization Address [facility] Co de Phone Number [facility] [address] [place] [address] * (ABNORMAL) POCT glucose meter (09/21/2024 8:45 PM EDT) POCT Glucose 235(H) 74 - 99 mg/dL 09/21/2024 8:47 PM EDT [facility] Comment:Accuracy of a glucos e result obtained from a capillary whole blood specimen relies upon adequate, non-compromised capillary blood flow. If the capillary glucose result is not consistent with the patient's clinical signs and symptoms, glucose testing should be repeated with either an arterial or venous sample on the glucometer or sent to the main labortory for testing. Comment 09/21/2024 8:47 PM EDT [facility] Burring Machine Operator ID Joy Reich 025 8:47 PM EDT [facility] Device ID [id number] 09/21/2024 8:47 PM EDT [facility] Specimen Type POC Capillary 09/21/2024 8:47 PM EDT [facility] Blood Capillary blood specimen / Unknown 09/21/2024 8:45 PM EDT 09/21/2024 8:47 PM EDT us Nathaly Nowak MD LAB POINT OF CARE TE ST DOCKED DEVICE UNSOLICITED RESULTS Final Result Performing Organization Address City/[facility]/ZIP Co de Phone Number [facility] [address] [place] [address] * (ABNORMAL) POCT glucose meter (09/21/2024 5:09 PM EDT) POCT Glucose 255(H) 74 - 99 mg/dL 09/21/2024 5:11 PM EDT [facility] Comment:Accuracy of a glucos e result obtained from a capillary whole blood specimen relies upon adequate, non-compromised capillary blood flow. If the capillary glucose result is not consistent with the patient's clinical signs and symptoms, glucose testing should be repeated with either an arterial or venous sample on the glucometer or sent to the main labortory for testing. Comment 09/21/2024 5:11 PM EDT [facility] Burring Machine Operator ID Jojo Lange 025 5:11 PM EDT [facility] Device ID [id number] 09/21/2024 5:11 PM EDT [facility] Specimen Type POC Capillary 09/21/2024 5:11 PM EDT [facility] Blood Capillary blood specimen / Unknown 09/21/2024 5:09 PM EDT 09/21/2024 5:11 PM EDT us Nathaly Nwoak MD LAB POINT OF CARE TE ST DOCKED DEVICE UNSOLICITED RESULTS Final Result [facility] [address] [place] [address] * VAS US Arterial Duplex Lower Extremity Unilateral Left; Pseudoaneurysm (PSA) (09/21/2024 2:38 PM EDT) Anatomical Region Laterality Modality Lower Extremities Ultrasound Impressions 09/21/2024 7:35 PM EDT Left: Following thrombin injection of the common femoral artery pseudoaneurysm, no active flow is noted. Study suggests successful thrombin injection therapy. COMMUNICATION: Per this written report. Preliminary report signed by THOM Santiago on 09/21/2024 3:09 PM By electronically signing this report, I, the attending physician, attest that I have personally reviewed the images/data for the above examination(s) and I agree with the final edited report. Drafted by THOM Santiago on 09/21/2024 3:08 PM Final report signed by Neil Isaac MD on 09/21/2024 7:35 PM Narrative 09/21/2024 7:35 PM EDT CLINICAL INDICATION: s/p FINISHER FINE DIAMOND DIES pseudoaneurysm injection TECHNIQUE: Non-invasive, real time duplex exam of the lower extremity arterial circulation with Doppler ultrasonic waveform and spectral analysis was performed. COMPARISON: None. FINDINGS: Left: Following thrombin injection, an echogenic thrombus is noted within the pseudoaneurysm sac. Color and pulsed Doppler analysis demonstrates an absence of flow within the pseudoaneurysm sac. The following flow velocities were obtained: FINISHER FINE DIAMOND DIES: 55 cm/s SFA: 0 cm/s Popliteal A: 51 cm/s GROUND CREW LINESMAN distal: 35 cm/s DPA: 61 cm/s Pseudoaneurysm sac: 0 cm/s Procedure Note Neil Isaac MD - 09/21/2024 CLINICAL INDICATION: s/p FINISHER FINE DIAMOND DIES pseudoaneurysm injection TECHNIQUE: Non-invasive, real time duplex exam of the lower extremity arterialcirculation with Doppler ultrasonic waveform and spectral analysis wasperformed. COMPARISON: None. FINDINGS: Left: Following thrombin injection, an echogenic thrombus is noted within thepseudoaneurysm sac. Color and pulsed Doppler analysis demonstrates anabsence of flow within the pseudoaneurysm sac. The following flowvelocities were obtained: FINISHER FINE DIAMOND DIES: 55 cm/s SFA: 0 cm/s Popliteal A: 51 cm/s GROUND CREW LINESMAN distal: 35 cm/s DPA: 61 cm/s Pseudoaneurysm sac: 0 cm/s IMPRESSION: Left: Following thrombin injection of the common femoral arterypseudoaneurysm, no active flow is noted. Study suggests successfulthrombin injection therapy. COMMUNICATION: Per this written report. Preliminary report signed by THOM Santiago on 09/21/2024 3:09 PM By electronically signing this report, I, the attending physician, attestthat I have personally reviewed the images/data for the aboveexamination(s) and I agree with the final edited report. Drafted by THOM Santiago on 09/21/2024 3:08 PM Final report signed by Neil Isaac MD on 09/21/2024 7:35 PM us Terrell Gautam MD CV VASCULAR PROCEDURES Final Result * (ABNORMAL) POCT glucose meter (09/21/2024 1:04 PM EDT) [facility] POCT Glucose 177(H) 74 - 99 mg/dL 09/21/2024 1:09 PM EDT [facility] Comment:Accuracy of a glucos e result obtained from a capillary whole blood specimen relies upon adequate, non-compromised capillary blood flow. If the capillary glucose result is not consistent with the patient's clinical signs and symptoms, glucose testing should be repeated with either an arterial or venous sample on the glucometer or sent to the main labortory for testing. Comment 09/21/2024 1:09 PM EDT [facility] Burring Machine Operator ID Ruth Solo 025 1:09 PM EDT [facility] Device ID [id number] 09/21/2024 1:09 PM EDT [facility] Specimen Type POC Capillary 09/21/2024 1:09 PM EDT [facility] Blood Capillary blood specimen / Unknown 09/21/2024 1:04 PM EDT 09/21/2024 1:09 PM EDT us Nathaly Nowak MD LAB POINT OF CARE TE ST DOCKED DEVICE UNSOLICITED RESULTS Final Result Performing Organization Address City/State/[facility] Co de Phone Number [facility] [address] [place] [address] * (ABNORMAL) POCT glucose meter (09/21/2024 12:24 PM EDT) [facility] POCT Glucose 153(H) 74 - 99 mg/dL 09/21/2024 12:26 PM EDT [facility] Comment:Accuracy of a glucos e result obtained from a capillary whole blood specimen relies upon adequate, non-compromised capillary blood flow. If the capillary glucose result is not consistent with the patient's clinical signs and symptoms, glucose testing should be repeated with either an arterial or venous sample on the glucometer or sent to the main labortory for testing. Comment 09/21/2024 12:26 PM EDT [facility] Burring Machine Operator ID Ruth Solo 025 12:26 PM EDT [facility] Device ID [id number] 09/21/2024 12:26 PM EDT [facility] Specimen Type POC Capillary 09/21/2024 12:26 PM EDT [facility] Blood Capillary blood specimen / Unknown 09/21/2024 12:24 PM EDT 09/21/2024 12:26 PM EDT us Nathaly Nowak MD LAB POINT OF CARE TE ST DOCKED DEVICE UNSOLICITED RESULTS Final Result [facility] [address] [place] [address] * VAS US Arterial Duplex Lower Extremity Unilateral Left; Pseudoaneurysm (PSA) (Left groin) (09/21/2024 9:35 AM EDT) Anatomical Region Laterality Modality Lower Extremities Ultrasound Impressions 09/21/2024 7:32 PM EDT Left: 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 The common femoral (distal to the pseudoaneurysm) and the superficial femoral arteries are occluded. COMMUNICATION: Prelim given to Anthony Keenan MD; RB Preliminary report signed by THOM Santiago on 09/21/2024 9:57 AM By electronically signing this report, I, the attending physician, attest that I have personally reviewed the images/data for the above examination(s) and I agree with the final edited report. Drafted by THOM Santiago on 09/21/2024 9:47 AM Final report signed by Neil Isaac MD on 09/21/2024 7:32 PM Narrative 09/21/2024 7:32 PM EDT CLINICAL INDICATION: Left groin pseudo TECHNIQUE: Non-invasive, real time duplex exam of the lower extremity arterial circulation with Doppler ultrasonic waveform and spectral analysis was performed. COMPARISON: None FINDINGS: Left: Color and Pulsed wave Doppler demonstrates absent flow in the distal common femoral artery and the superficial femoral artery. Lower extremity duplex demonstrates monophasic waveforms in the proximal common femoral, profunda femoral, popliteal, posterior tibial and dorsalis pedis arteries. The common femoral vein is patent and augmentable. A pulsatile mass is noted at the level of the groin. The active portion of the mass measures 3.9 cm x 1.9 cm. The pulsatile mass communicates with the common femoral artery and a to-and fro Doppler flow signal is noted in the communicating neck. The following flow velocities were obtained: FINISHER FINE DIAMOND DIES: 93 cm/s SFA: 0 cm/s Popliteal A: 36 cm/s GROUND CREW LINESMAN distal: 34 cm/s DPA: 59 cm/s Pseudoaneurysm sac: 112 cm/s communicating neck: 187 cm/s length: 0.48 cm diameter: 0.43 cm Procedure Note Neil Isaac MD - 09/21/2024 CLINICAL INDICATION: Left groin pseudo TECHNIQUE: Non-invasive, real time duplex exam of the lower extremity arterialcirculation with Doppler ultrasonic waveform and spectral analysis wasperformed. COMPARISON: None FINDINGS: Left: Color and Pulsed wave Doppler demonstrates absent flow in the distalcommon femoral artery and the superficial femoral artery. Lower extremity duplex demonstrates monophasic waveforms in the proximalcommon femoral, profunda femoral, popliteal, posterior tibial and dorsalispedis arteries. The common femoral vein is patent and augmentable. A pulsatile mass is noted at the level of the groin. The active portion ofthe mass measures 3.9 cm x 1.9 cm. The pulsatile mass communicates withthe common femoral artery and a to-and fro Doppler flow signal is notedin the communicating neck. 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 The common femoral (distal to the pseudoaneurysm) and thesuperficial femoral arteries are occluded. COMMUNICATION: Prelim given to Anthony Keenan MD; RB Preliminary report signed by THOM Santiago on 09/21/2024 9:57 AM By electronically signing this report, I, the attending physician, attestthat I have personally reviewed the images/data for the aboveexamination(s) and I agree with the final edited report. Drafted by THOM Santiago on 09/21/2024 9:47 AM Final report signed by Neil Isaac MD on 09/21/2024 7:32 PM Nathaly Nowak MD CV VASCULAR PROCEDURES Final Re sult * (ABNORMAL) POCT glucose meter (09/21/2024 7:55 AM EDT) Pathologist [facility] POCT Glucose 130(H) 74 - 99 mg/dL 09/21/2024 8:01 AM EDT [facility] Comment:Accuracy of a glucos e result obtained from a capillary whole blood specimen relies upon adequate, non-compromised capillary blood flow. If the capillary glucose result is not consistent with the patient's clinical signs and symptoms, glucose testing should be repeated with either an arterial or venous sample on the glucometer or sent to the main labortory for testing. Comment 09/21/2024 8:01 AM EDT [facility] Burring Machine Operator ID Ruth Solo 025 8:01 AM EDT [facility] Device ID [id number] 09/21/2024 8:01 AM EDT [facility] Specimen Type POC Capillary 09/21/2024 8:01 AM EDT [facility] Blood Capillary blood specimen / Unknown 09/21/2024 7:55 AM EDT 09/21/2024 8:01 AM EDT Nathaly Nowak MD LAB POINT OF CARE TE ST DOCKED DEVICE UNSOLICITED RESULTS Final Result [facility] [address] [place] [address] * (ABNORMAL) POCT glucose meter (09/21/2024 6:06 AM EDT) Pathologist [facility] POCT Glucose 153(H) 74 - 99 mg/dL 09/21/2024 6:09 AM EDT [facility] Comment:Accuracy of a glucos e result obtained from a capillary whole blood specimen relies upon adequate, non-compromised capillary blood flow. If the capillary glucose result is not consistent with the patient's clinical signs and symptoms, glucose testing should be repeated with either an arterial or venous sample on the glucometer or sent to the main labortory for testing. Comment 09/21/2024 6:09 AM EDT [facility] Burring Machine Operator ID Yuan Griffin 09/22/19 6:09 AM EDT [facility] Device ID [id number] 09/21/2024 6:09 AM EDT [facility] Specimen Type POC Capillary 09/21/2024 6:09 AM EDT [facility] Blood Capillary blood specimen / Unknown 09/21/2024 6:06 AM EDT 09/21/2024 6:09 AM EDT Nathaly Nowak MD LAB POINT OF CARE TE ST DOCKED DEVICE UNSOLICITED RESULTS Final Result Performing Organization Address City/[facility] Co de Phone Number [facility] [address] [place] [address] * (ABNORMAL) POCT glucose meter (09/21/2024 2:27 AM EDT) [facility] POCT Glucose 194(H) 74 - 99 mg/dL 09/21/2024 2:34 AM EDT [facility] Comment:Accuracy of a glucos e result obtained from a capillary whole blood specimen relies upon adequate, non-compromised capillary blood flow. If the capillary glucose result is not consistent with the patient's clinical signs and symptoms, glucose testing should be repeated with either an arterial or venous sample on the glucometer or sent to the main labortory for testing. Comment 09/21/2024 2:34 AM EDT [facility] Burring Machine Operator ID Ana Maria Corea 09/21/2024 2:34 AM EDT [facility] Device ID [id number] 09/21/2024 2:34 AM EDT [facility] Specimen Type POC Capillary 09/21/2024 2:34 AM EDT [facility] Blood Capillary blood specimen / Unknown 09/21/2024 2:27 AM EDT 09/21/2024 2:34 AM EDT Nathaly Nowak MD LAB POINT OF CARE TE ST DOCKED DEVICE UNSOLICITED RESULTS Final Result Performing Organization Address City/[facility]/ZIP Co de Phone Number [facility] [address] [place] [address] * ECG Adult (09/21/2024 2:00 AM EDT) [facility] EKG DIAGNOSIS CLASS Abnormal MUSE ECG Ventricular Rate 85 BPM MUSE ECG Atrial Rate 85 BPM MUSE ECG IL Interval 146 ms MUSE ECG QRSD Interval 128 ms MUSE ECG QT Interval 390 ms MUSE ECG QTC Interval 464 ms MUSE ECG P [place] 52 degrees MUSE ECG R [place] 263 degrees MUSE ECG T Wave [place] 57 degrees MUSE ECG Diagnosis Atrial-sensed ventricular-pace d rhythm MUSE ECG Diagnosis Biventricular pacemaker detected MUSE ECG Diagnosis MUSE ECG Diagnosis MUSE ECG Diagnosis Confirmed by Sana Ruth ([id number]) on 09/22/2024 11:34:36 PM MUSE ECG 09/21/2024 2:00 AM EDT 09/22/2024 11:34 PM EDT Nathaly Nowak MD ECG ORDERABLES Final Result MUSE ECG * ED HIV 1/2 Antibody/Antigen Screen w/Reflex to HIV 1/2 Differentiation (09/20/2024 10:33 PM EDT) [facility] HIV 1 & 2 Antibody/Antigen Screen Non Reactive Non Reactive 09/20/2024 11:39 PM EDT [facility] Comment:Screening for HIV 1 & 2 antibodies, and P24 antigen is NONREACTIVE. No confirmatory testing is required. Blood Venous blood specimen / Unknown Venipuncture / Unknown 09/20/2024 10:33 PM EDT 09/20/2024 10:54 PM EDT us Giorgi Perkins MD LAB BLOOD ORDERABLES Final Result [facility] [address] [place] [address] * Hepatitis C Antibody - ED (09/20/2024 10:33 PM EDT) [facility] Hepatitis C Antibody Negative Negative 09/20/2024 11:39 PM EDT [facility] Blood Venous blood specimen / Unknown Venipuncture / Unknown 09/20/2024 10:33 PM EDT 09/20/2024 10:53 PM EDT us Giorgi Perkins MD LAB BLOOD ORDERABLES Final Result [facility] [address] [place] [address] * APTT (09/20/2024 10:33 PM EDT) aPTT 28 25 - 35 sec LAB COAGULATION METHOD 09/21/2024 12:19 AM EDT [facility] Blood Venous blood specimen / Unknown Venipuncture / Unknown 09/20/2024 10:33 PM EDT 09/20/2024 10:42 PM EDT us Giorgi Perkins MD LAB BLOOD ORDERABLES Final Result Performing Organization Address [facility] Co de Phone Number [facility] [address] [place] [address] * PT-INR (09/20/2024 10:33 PM EDT) Prothrombin Time 14.0 12.0 - 14.3 sec LAB COAGULATION METHOD 09/21/2024 12:19 AM EDT [facility] INR 1.1 0.9 - 1.1 LAB COAGULATION METHOD 09/21/2024 12:19 AM EDT [facility] Blood Venous blood specimen / Unknown Venipuncture / Unknown 09/20/2024 10:33 PM EDT 09/20/2024 10:42 PM EDT Narrative [facility] - 09/21/2024 12:19 AM EDT OPTIMAL INR RANGES FOR PATIENT ON ORAL ANTICOAGULANT THERAPY Prevention of venous thromboembolism INR 2.0 to 3.0 In patients with heart disease: Atrial fibrillation INR 2.0 to 3.0 Valvular heart disease INR 2.0 to 3.0 Tissue heart valves INR 2.0 to 3.0 Mechanical prosthetic valves INR 2.5 to 3.5 Prevention of recurrent PA INR 2.5 to 3.5 us Giorgi Perkins MD LAB BLOOD ORDERABLES Final Result [facility] [address] [place] [address] * (ABNORMAL) CBC w/diff (09/20/2024 10:33 PM EDT) WBC Count 13.38(H) 3.70 - 10.30 10*3/uL LAB HEMATOLOGY METHOD 09/20/2024 11:00 PM EDT [facility] RBC Count 2.91(L) 4.60 - 6.10 10*6/uL LAB HEMATOLOGY METHOD 09/20/2024 11:00 PM EDT [facility] HGB 9.0(L) 13.7 - 17.5 g/dL LAB HEMATOLOGY METHOD 09/20/2024 11:00 PM EDT [facility] HCT 27.2(L) 40.0 - 51.0 % LAB HEMATOLOGY METHOD 09/20/2024 11:00 PM EDT [facility] Platelet Count 407(H) 155 - 369 10*3/uL LAB HEMATOLOGY METHOD 09/20/2024 11:00 PM EDT [facility] MCV 94 79 - 98 fL LAB HEMATOLOGY METHOD 09/20/2024 11:00 PM EDT [facility] MCH 30.9 26.0 - 32.0 pg LAB HEMATOLOGY METHOD 09/20/2024 11:00 PM EDT [facility] MCHC 33.1 30.7 - 35.5 g/dL LAB HEMATOLOGY METHOD 09/20/2024 11:00 PM EDT [facility] RDW 13.6 11.5 - 14.5 % LAB HEMATOLOGY METHOD 09/20/2024 11:00 PM EDT [facility] MPV 9.0 8.8 - 12.5 fL LAB HEMATOLOGY METHOD 09/20/2024 11:00 PM EDT [facility] nRBC 0.0 <=0.0 per 100 WBCs LAB HEMATOLOGY METHOD 09/20/2024 11:00 PM EDT [facility] Differential Type Automated LAB HEMATOLOGY METHOD 09/20/2024 11:00 PM EDT [facility] Neutrophils % 77 % LAB HEMATOLOGY METHOD 09/20/2024 11:00 PM EDT [facility] Lymphocytes % 13 % LAB HEMATOLOGY METHOD 09/20/2024 11:00 PM EDT [facility] Monocytes % 8 % LAB HEMATOLOGY METHOD 09/20/2024 11:00 PM EDT [facility] Eosinophils % 1 % LAB HEMATOLOGY METHOD 09/20/2024 11:00 PM EDT [facility] Basophils % 0 % LAB HEMATOLOGY METHOD 09/20/2024 11:00 PM EDT [facility] Immature Granulocytes % 1 % LAB HEMATOLOGY METHOD 09/20/2024 11:00 PM EDT [facility] Neutrophils Absolute 10.28(H) 1.60 - 6.10 10*3/uL LAB HEMATOLOGY METHOD 09/20/2024 11:00 PM EDT [facility] Lymphocytes Absolute 1.67 1.20 - 3.90 10*3/uL LAB HEMATOLOGY METHOD 09/20/2024 11:00 PM EDT [facility] Monocytes Absolute 1.12(H) 0.30 - 0.90 10*3/uL LAB HEMATOLOGY METHOD 09/20/2024 11:00 PM EDT [facility] Eosinophils Absolute 0.14 0.00 - 0.50 10*3/uL LAB HEMATOLOGY METHOD 09/20/2024 11:00 PM EDT [facility] Basophils Absolute 0.05 0.00 - 0.10 10*3/uL LAB HEMATOLOGY METHOD 09/20/2024 11:00 PM EDT [facility] Immature Granulocytes Absolute 0.12(H) 0.00 - 0.06 10*3/uL LAB HEMATOLOGY METHOD 09/20/2024 11:00 PM EDT [facility] Blood Venous blood specimen / Unknown Venipuncture / Unknown 09/20/2024 10:33 PM EDT 09/20/2024 10:42 PM EDT Narrative [facility] - 09/20/2024 11:00 PM EDT Therapeutic decision making should be based on absolute values, rather than percentages. us Giorgi Perkins MD LAB BLOOD ORDERABLES Final Result [facility] [address] [place] [address] * (ABNORMAL) CMP (09/20/2024 10:33 PM EDT) Glucose, Plasma 170(H) 74 - 99 mg/dL 09/20/2024 11:03 PM EDT [facility] BUN, Plasma 27(H) 8 - 23 mg/dL 09/20/2024 11:03 PM EDT [facility] Creatinine, Plasma 0.93 0.70 - 1.20 mg/dL 09/20/2024 11:03 PM EDT [facility] BUN/Creatinine Ratio 29 09/20/2024 11:03 PM EDT [facility] Sodium, Plasma 134(L) 136 - 145 mmol/L 09/20/2024 11:03 PM EDT [facility] Potassium, Plasma 5.0(H) 3.6 - 4.9 mmol/L 09/20/2024 11:03 PM EDT [facility] Chloride, Plasma 101 97 - 107 mmol/L 09/20/2024 11:03 PM EDT [facility] CO2, Plasma 22 22 - 29 mmol/L 09/20/2024 11:03 PM EDT [facility] Anion Gap 11 6 - 16 mmol/L 09/20/2024 11:03 PM EDT [facility] Total Calcium, Plasma 9.1 8.9 - 10.2 mg/dL 09/20/2024 11:03 PM EDT [facility] Total Protein 6.6 6.3 - 7.9 g/dL 09/20/2024 11:03 PM EDT [facility] Albumin, Plasma 3.9 3.5 - 5.2 g/dL 09/20/2024 11:03 PM EDT [facility] AST, Plasma 11 10 - 50 U/L 09/20/2024 11:03 PM EDT [facility] ALT, Plasma 16 10 - 50 U/L 09/20/2024 11:03 PM EDT [facility] Alkaline Phosphatase, Plasma 132(H) 40 - 115 U/L 09/20/2024 11:03 PM EDT [facility] Total Bilirubin, Plasma 0.6 0.2 - 1.1 mg/dL 09/20/2024 11:03 PM EDT [facility] eGFRcr 91.1 mL/min/1.7 3m*2 09/20/2024 11:03 PM EDT [facility] Comment:Reported eGFRcr in m L/min/1.73m2 is based the CKD-EPI 2020 equation that does not use a race coefficient. 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 documented in this encounter Administered Medications Inactive Administered Medications - up to 3 most recent administrations Medication Order MAR Action Action Date Dose Rate Site acetaminophen (Tylenol) tablet 1,000 mg 1,000 mg, Oral, Once, 1 dose, On 09/21/24 at 0325, Routine Given 09/21/2024 6:10 AM EDT 1,000 mg bisacodyl (Dulcolax) EC tablet 10 mg 10 mg, Oral, Daily, First dose on 09/21/24 at 1945, Until Discontinued, Routine Given 09/22/2024 8:04 AM EDT 10 mg Given 09/21/2024 8:52 PM EDT 10 mg calcium carbonate (Tums) chewable tablet 500 mg 500 mg, Oral, 4 times daily PRN, Starting on 09/21/24 at 1600, Until 09/22/24 at 1800, Routine, indigestion, heartburn Given 09/21/2024 11:06 PM EDT 500 m g Given 09/21/2024 4:05 PM EDT 500 mg dextrose 10 % (D10W) bolus 125 mL 125 mL, Intravenous, Every 15 min PRN, Starting on 09/21/24 at 0149, Until 09/22/24 at 1800, Administer over 15 Minutes, Routine, low blood sugar BG 51-89 mg/dL dextrose 10 % (D10W) bolus 250 mL 250 mL, Intravenous, Every 15 min PRN, Starting on 09/21/24 at 0149, Until 09/22/24 at 1800, Administer over 15 Minutes, Routine, PRN low blood sugar BG =/<50 mg/dL dextrose 5 % and sodium chloride 0.45 % infusion 50 mL/hr, Intravenous, Continuous, Starting on 09/21/24 at 0150, Until 09/21/24 at 1503, Routine Restarted 09/21/2024 9:43 AM EDT 50 mL/hr 50 mL/ hr New Bag 09/21/2024 2:30 AM EDT 50 mL/hr 50 mL/hr famotidine (Pepcid) tablet 20 mg 20 mg, Oral, 2 times daily, First dose on 09/22/24 at 0000, Until Discontinued, Routine Given 09/22/2024 8:04 AM EDT 20 mg Given 09/22/2024 12:22 AM EDT 20 mg glucagon (human recombinant) injection 1 mg 1 mg, Intramuscular, Every 15 min PRN, Starting on 09/21/24 at 0149, Until 09/22/24 at 1800, Routine, low blood sugar per Hypoglycemia Prevention and Treatment protocol glucose (Glutose) 40 % oral gel 15-30 grams of glucose 15-30 grams of glucose, Sublingual, Every 15 min PRN, Starting on 09/21/24 at 0149, Until 09/22/24 at 1800, Routine, low blood sugar, per Hypoglycemia Prevention and Treatment protocol heparin (porcine) injection 5,000 Units 5,000 Units, Subcutaneous, Every 8 hours scheduled, First dose on 09/21/24 at 0150, Until Discontinued, Routine Given 09/22/2024 1:41 PM EDT 5,000 Units Left Lower Abdomen Given 09/22/2024 6:12 AM EDT 5,000 Units L eft Lower Abdomen Given 09/21/2024 10:29 PM EDT 5,000 Units Left Upper Abdomen insulin regular (HumuLIN R,NovoLIN R) 100 units/mL injection - Correction - Standard Dose 0-5 Units, Subcutaneous, Every 6 hours scheduled, First dose on 09/21/24 at 0150, Until Discontinued, Routine Given 09/22/2024 12:26 PM EDT 1 Units Left Lower Abdomen Given 09/22/2024 12:20 AM EDT 2 Units L eft Lower Abdomen Given 09/21/2024 5:15 PM EDT 3 Units Ri ght Upper Arm (Back) labetalol (Normodyne,Trandate) injection 20 mg 20 mg, Intravenous, Every 4 hours PRN, Starting on 09/21/24 at 0148, Until 09/22/24 at 1800, Routine, high blood pressure, SBP over 160 lactated Ringer's bolus 500 mL 500 mL, Intravenous, Once, 1 dose, On 09/21/24 at 1945, Administer over 2 Hours, Routine New Bag 09/21/2024 8:52 PM EDT 500 mL 250 mL/hr lisinopril tablet 10 mg 10 mg, Oral, Daily, First dose on 09/22/24 at 1315, Until Discontinued, Routine Given 09/22/2024 1:40 PM EDT 10 mg methocarbamol (Robaxin) tablet 500 mg 500 mg, Oral, 3 times daily, First dose on 09/21/24 at 0900, Until Discontinued, Routine Given 09/22/2024 8:04 AM EDT 500 mg Given 09/21/2024 8:27 PM EDT 500 mg Given 09/21/2024 3:56 PM EDT 500 mg metoprolol tartrate (Lopressor) tablet 100 mg 100 mg, Oral, 2 times daily, First dose on 09/22/24 at 1315, Until Discontinued, Routine Given 09/22/2024 1:40 PM EDT 100 mg ondansetron ODT (Zofran-ODT) disintegrating tablet 4 mg 4 mg, Oral, Once, 1 dose, On Mon09/20/24 at 2230, STAT Given 09/20/2024 10:32 PM EDT 4 mg oxyCODONE (Roxicodone) immediate release tablet 5 mg 5 mg, Oral, Once, 1 dose, On 09/21/24 at 0325, Routine Given 09/21/2024 3:25 AM EDT 5 mg polyethylene glycol (Miralax) packet 17 g 17 g, Oral, Daily, First dose on 09/21/24 at 2115, Until Discontinued, Routine Given 09/22/2024 8:04 AM EDT 17 g Given 09/21/2024 8:27 PM EDT 17 g senna-docusate (Sara-Colace) 8.6-50 MG per tablet 1 tablet 1 tablet, Oral, Nightly, First dose on 09/21/24 at 2115, Until Discontinued, Routine Given 09/21/2024 8:27 PM EDT 1 tablet sodium chloride 0.9 % flush 10 mL 10 mL, Intravenous, Every 12 hours, First dose on 09/21/24 at 0150, Until Discontinued, Routine Given 09/22/2024 12:26 PM EDT 10 mL Given 09/22/2024 1:11 AM EDT 10 mL sodium chloride 0.9 % flush 10 mL 10 mL, Intravenous, As needed, Starting on 09/21/24 at 0147, Until 09/22/24 at 1800, Routine, line care tamsulosin (Flomax) 24 hr capsule 0.4 mg 0.4 mg, Oral, Daily with dinner, First dose on 09/21/24 at 1800, Until Discontinued, Routine Given 09/21/2024 5:15 PM EDT 0.4 mg documented in this encounter Active and Recently Administered Medications Times are shown in EDT. Scheduled Medication Order 09/20/2024 09/21/2024 09/22/2024 acetaminophen (Tylenol) tablet 1,000 mg (COMPLETED) 1,000 mg, Oral, Once, 1 dose, On 09/21/24 at 0325, Routine 0610 (Given - Provider: Ana Maria Corea - Comment: Patient did not want until now) bisacodyl (Dulcolax) EC tablet 10 mg 10 mg, Oral, Daily, First dose on 09/21/24 at 1945, Until Discontinued, Routine 2051 (Given - Provider: Cristiane Rivas, CHRISTIAN) 0804 (Given - Provider: Melecio Vega, CHRISTIAN) famotidine (Pepcid) tablet 20 mg 20 mg, Oral, 2 times daily, First dose on 09/22/24 at 0000, Until Discontinued, Routine 21 (Given - Provider: Cristiane Rivas, CHRISTIAN)0804 (Given - Provider: Melecio Vega, CHRISTIAN) heparin (porcine) injection 5,000 Units 5,000 Units, Subcutaneous, Every 8 hours scheduled, First dose on 09/21/24 at 0150, Until Discontinued, Routine 0229 (Given - Provider: Ana Maria Corea)0611 (Given - Provider: Ana Maria Corea)1556 (Given - Provider: Reid Villalpando RN)2229 (Given - Provider: Cristiane Rivas RN) 0612 (Given - Provider: Cristiane Rivas RN)1341 (Given - Provider: Melecio Vega RN) insulin regular (HumuLIN R,NovoLIN R) 100 units/mL injection - Correction - Standard Dose 0-5 Units, Subcutaneous, Every 6 hours scheduled, First dose on 09/21/24 at 0150, Until Discontinued, Routine 0229 (Given - Provider: Ana Maria Corea)0611 (Given - Provider: Ana Maria Corea)1111 (Not Given - Provider: Reid Villalpando RN - Reason: NPO)1715 (Given - Provider: Reid Villalpando RN) 0020 (Given - Provider: Cristiane Rivas RN)0557 (Not Given - Provider: Cristiane Rivas RN - Reason: Order parameters not met)1226 (Given - Provider: Melecio Vega RN)1800 (Canceled Entry - Provider: Automatic Discharge Provider - Comment: Automatically canceled at discontinue of medication order) lactated Ringer's bolus 500 mL (COMPLETED) 500 mL, Intravenous, Once, 1 dose, On 09/21/24 at 1945, Administer over 2 Hours, Routine 2051 (New Bag - Provider: Cristiane Rivas RN - Comment: 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 supervisor 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) lisinopril tablet 10 mg 10 mg, Oral, Daily, First dose on 09/22/24 at 1315, Until Discontinued, Routine 1340 (Given - Provider: Melecio Vega RN) methocarbamol (Robaxin) tablet 500 mg 500 mg, Oral, 3 times daily, First dose on 09/21/24 at 0900, Until Discontinued, Routine 0943 (Given - Provider: Reid Villalpando RN)1556 (Given - Provider: Reid Villalpando RN)2027 (Given - Provider: Cristiane Rivas RN) 0804 (Given - Provider: Melecio Vega RN)1600 (Canceled Entry - Provider: Automatic Discharge Provider - Comment: Automatically canceled at discontinue of medication order) metoprolol tartrate (Lopressor) tablet 100 mg 100 mg, Oral, 2 times daily, First dose on Mon09/22/24 at 1315, Until Discontinued, Routine 1340 (Given - Provider: Melecio Vega RN) ondansetron ODT (Zofran-ODT) disintegrating tablet 4 mg (COMPLETED) 4 mg, Oral, Once, 1 dose, On Mon09/20/24 at 2230, STAT 2232 (Given - Provider: Ana Maria Corea) oxyCODONE (Roxicodone) immediate release tablet 5 mg (COMPLETED) 5 mg, Oral, Once, 1 dose, On 09/21/24 at 0325, Routine 0325 (Given - Provider: Ana Maria Corea) polyethylene glycol (Miralax) packet 17 g 17 g, Oral, Daily, First dose on 09/21/24 at 2115, Until Discontinued, Routine 2026 (Given - Provider: Cristiane Rivas RN) 0804 (Given - Provider: Melecio Vega RN) senna-docusate (Sara-Colace) 8.6-50 MG per tablet 1 tablet 1 tablet, Oral, Nightly, First dose on 09/21/24 at 2115, Until Discontinued, Routine 2026 (Given - Provider: Cristiane Rivas RN) sodium chloride 0.9 % flush 10 mL(Linked Group 1) 10 mL, Intravenous, Every 12 hours, First dose on 09/21/24 at 0150, Until Discontinued, Routine 0902 (Not Given - Provider: Reid Villalpando RN - Reason: Order changed - Comment: IV infusing)1350 (Not Given - Provider: Reid Villalpando RN - Reason: Order parameters not met - Comment: IV infusing) 0111 (Given - Provider: Cristiane Rivas RN)1226 (Given - Provider: Melecio Vega RN) tamsulosin (Flomax) 24 hr capsule 0.4 mg 0.4 mg, Oral, Daily with dinner, First dose on 09/21/24 at 1800, Until Discontinued, Routine 1715 (Given - Provider: Reid Villalpando, CHRISTIAN) 1800 (Canceled Entry - Provider: Automatic Discharge Provider - Comment: Automatically canceled at discontinue of medication order) Continuous Medication Order 09/20/2024 09/21/2024 09/22/2024 dextrose 5 % and sodium chloride 0.45 % infusion (CANCELED) 50 mL/hr, Intravenous, Continuous, Starting on 09/21/24 at 0150, Until 09/21/24 at 1503, Routine 0230 (New Bag - Provider: Ana Maria Corea)0903 (Paused - Provider: Reid Villalpando, CHRISTIAN - Comment: pt off unit for imaging exam, NO IV pole available at this time)0943 (Restarted - Provider: Reid Villalpando RN)1502 (Stopped - Provider: Reid Villalpando RN - Comment: pt transitioned to a carbohydrate controlled diet, no longer NPO) PRN Medication Order 09/20/2024 09/21/2024 09/22/2024 calcium carbonate (Tums) chewable tablet 500 mg 500 mg, Oral, 4 times daily PRN, Starting on 09/21/24 at 1600, Until 09/22/24 at 1800, Routine, indigestion, heartburn 1605 (Given - Provider: Reid Villalpando RN)2306 (Given - Provider: Cristiane Rivas RN) dextrose 10 % (D10W) bolus 125 mL(Linked Group 2) 125 mL, Intravenous, Every 15 min PRN, Starting on 09/21/24 at 0149, Until 09/22/24 at 1800, Administer over 15 Minutes, Routine, low blood sugar BG 51-89 mg/dL dextrose 10 % (D10W) bolus 250 mL(Linked Group 2) 250 mL, Intravenous, Every 15 min PRN, Starting on 09/21/24 at 0149, Until 09/22/24 at 1800, Administer over 15 Minutes, Routine, PRN low blood sugar BG =/<50 mg/dL glucagon (human recombinant) injection 1 mg(Linked Group 2) 1 mg, Intramuscular, Every 15 min PRN, Starting on 09/21/24 at 0149, Until 09/22/24 at 1800, Routine, low blood sugar per Hypoglycemia Prevention and Treatment protocol glucose (Glutose) 40 % oral gel 15-30 grams of glucose(Linked Group 2) 15-30 grams of glucose, Sublingual, Every 15 min PRN, Starting on 09/21/24 at 0149, Until 09/22/24 at 1800, Routine, low blood sugar, per Hypoglycemia Prevention and Treatment protocol labetalol (Normodyne,Trandate) injection 20 mg 20 mg, Intravenous, Every 4 hours PRN, Starting on 09/21/24 at 0148, Until 09/22/24 at 1800, Routine, high blood pressure, SBP over 160 sodium chloride 0.9 % flush 10 mL(Linked Group 1) 10 mL, Intravenous, As needed, Starting on 09/21/24 at 0147, Until 09/22/24 at 1800, Routine, line care Linked Groups Order Group 1: Insert peripheral IV (CANCELED) Once, On 09/21/24 at 0147, For 1 occurrence And Saline lock IV (CANCELED) Once, On 09/21/24 at 0147, For 1 occurrence And sodium chloride 0.9 % flush 10 mLJump to med 10 mL, Intravenous, Every 12 hours, First dose on 09/21/24 at 0150, Until Discontinued, Routine And sodium chloride 0.9 % flush 10 mLJump to med 10 mL, Intravenous, As needed, Starting on 09/21/24 at 0147, Until 09/22/24 at 1800, Routine, line care Group 2: glucose (Glutose) 40 % oral gel 15-30 grams of glucoseJump to med 15-30 grams of glucose, Sublingual, Every 15 min PRN, Starting on 09/21/24 at 0149, Until 09/22/24 at 1800, Routine, low blood sugar, per Hypoglycemia Prevention and Treatment protocol Or dextrose 10 % (D10W) bolus 125 mLJump to med 125 mL, Intravenous, Every 15 min PRN, Starting on 09/21/24 at 0149, Until 09/22/24 at 1800, Administer over 15 Minutes, Routine, low blood sugar BG 51-89 mg/dL Or dextrose 10 % (D10W) bolus 250 mLJump to med 250 mL, Intravenous, Every 15 min PRN, Starting on 09/21/24 at 0149, Until 09/22/24 at 1800, Administer over 15 Minutes, Routine, PRN low blood sugar BG =/<50 mg/dL Or glucagon (human recombinant) injection 1 mgJump to med 1 mg, Intramuscular, Every 15 min PRN, Starting on 09/21/24 at 0149, Until 09/22/24 at 1800, Routine, low blood sugar per Hypoglycemia Prevention and Treatment protocol documented in this encounter Additional Health Concerns Assessment Noted Time A Body Mass Index follow-up plan has been documented for the patient 09/22/2024 2:53 PM EDT documented as of this encounter Care Teams 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
--- OUTSIDE RECORDS SUMMARY | 2024-10-11 10:15 | XMS_ITS | Encounter Summary ---
Author Organization [facility] Address [address] [place] [address] Care Team Providers Care Licensed Direct Entry Midwife Name Role Phone Asad Victor MD Primary Care Provider + [phone] Encounter Details Date Type Department Care Team (Latest Contact Info) Description 10/11/2024 10:15 AM EDT Pre-Admission Testing [facility] [address], [address] [place] [phone] Preop testing (Primary Dx) Anesthesia Record Procedure [...] Hand; Site Prep: Chlorhexidine ; Local Anesth: [place]; Technique: Anatomical landmarks; Inserted by: CHRISTIAN Acuna; [...] G; Orientation: Right; Location: Axillary; Inserted by: EMISSIONS ENGINEER; Securement: Sutured; Patient Tolerance: Tolerated well; Removal [...] drink first t dino in the morning (EYE-TORQUE TESTER) to steady your nerves or to get [...] CEA 2016 + 3rd degree AV block DIRECTOR OF VOCATIONAL GUIDANCE-P placed 08/2023 for Wenkeback with 11 sec pause + HLD + HTN - controlled + PAD 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 S/P intravascular lithotripsy of left common and external iliac artery with 2 continuous balloon mounted bare metal stents 09/12/24 on Xarelto and ASA + WILHELM occ, low energy for > year - had work-up recently in [place] (will get records) + peripheral edema LLE [...] ENDARTERECTOMY N/A 2017 Endarterectomy Carotid Artery from [facility] CORONARY ANGIOPLASTY Left Coronary Angiography With Concomitant Left Heart Catheterization from [facility] CORONARY ARTERY BYPASS GRAFT N/A 2018 3V ELBOW SURGERY Right OTHER SURGICAL HISTORY N/A Reported Prior Surgical / Procedural History from [facility] [5] No Known Allergies [6] Current Outpatient [...] card, photo ID, along with power of family law attorney, guardianship or advanced directives if [...] Info) Description 11/26/2024 2:00 PM EDT Appointment [facility] [address] [facility] 5th Floor [address] [place] [address] 11/26/2024 2:30 PM EDT Appointment [facility] [address] [facility] 5th Floor [address] [place] [address] 11/26/2024 3:20 PM EDT Office Visit [facility] [address] [place] [address] Elisabet Schuster PA [address] [place] [address] 11/29/2024 2:30 PM EDT Office Visit [facility] [address] [place] [address] Oscar Appiah MD [address] [facility] [address] [place] [address] documented as of this encounter [...] Modality Other Narrative 10/17/2024 9:50 AM EDT [facility]: Pre-operative CIED Report Assessment and Sara-Procedural Reommendations: Name: Mono Bobby Date: 10/17/2024 : 1960 Age: 64 y.o. Patient has a Education Professor: Berger DIRECTOR OF VOCATIONAL GUIDANCE-PM Remaining battery longevity adequate. Lead integrity test [...] recommendations. Supporting reports can be found in [employer] media file. us Emelina DOSHI CV IMPLANTABLE [...] documented as of this encounter Care Teams Licensed Direct Entry Midwife Relationship Specialty Start Date End Date Asad Victor MD [address] [place] [address] PCP - General 10/07/22 documented as of this encounter
--- OUTSIDE RECORDS SUMMARY | 2024-10-16 14:45 | XMS_ITS | Encounter Summary ---
Author Organization Healthcare Address [address] [place] [address] Care Team Providers Care Accounting/Finance Tutor Name Role Phone Asad Victor MD Primary Care Provider + [phone] Encounter Details Date Type Department Care Team (Latest Contact Info) Description 10/16/2024 2:45 PM EDT - 10/16/2024 11:59 PM EDT Hospital Encounter Cardiac Imaging [address] [place] [address] Discharge Disposition: Home or Self Care Social [...] drink first t dino in the morning (EYE-RAISE DRILLER) to steady your nerves or to get [...] Info) Description 11/26/2024 2:00 PM EDT Appointment [facility] [address] [place] [address] 11/26/2024 2:30 PM EDT Appointment [facility] [address] [place] [address] 11/26/2024 3:20 PM EDT Office Visit [facility] [address] [place] [address] Elisabet Schuster PA [address] [facility] [address] [place] [address] 11/29/2024 2:30 PM EDT Office Visit [place] [address] [place] [address] Oscar Appiah MD [address] [facility] [address] [place] [address] documented as of this encounter Goals Goal Patient Goal Type Associated Problems Recent Progress Patient-Stated? Author Autogenera luoise Goal Care Plan Autogenerated Problem No Ekta [...] Modality Other Narrative 10/17/2024 9:50 AM EDT [facility]: Pre-operative CIED Report Assessment and Sara-Procedural Reommendations: Name: Mono Bobby Date: 10/17/2024 : 1960 Age: 64 y.o. Patient has a Engineering And Development Director: Berger SET UP MECHANIC-PM Remaining battery longevity adequate. Lead integrity [...] recommendations. Supporting reports can be found in [employer] media file. us Emelina DOSHI CV [...] documented as of this encounter Care Teams Accounting/Finance Tutor Relationship Specialty Start Date End Date Asad Victor MD [address] [place], [place] [address], [place] [address] PCP - General 10/07/22 documented as of this encounter
--- OUTSIDE RECORDS SUMMARY | 2024-10-17 06:21 | XMS_ITS | Encounter Summary ---
Author Organization [facility] Address [address] [id number] Care Team Providers Care Snowboarding Instructor Name Role Phone Asad Victor MD Primary Care Provider [phone] Reason for Referral * Imaging (Routine) - Authorized Specialty Diagnoses / Procedures Referred By Susan t Referred To Contact Cardiology Diagnoses Critical limb ischemia of left lower extremity Pseudoaneurysm of left femoral artery (CMS/HCC) Procedures VAS US Arterial Duplex Lower Extremity Unilateral Left Terrell Gautam MD [address] [address] Phone: tel: fax: Referral ID Status Reason Start Date Expiration Date Visits Requested Visits Authorized [id number] Authorized Perform Procedure 10/19/2024 04/20/2026 1 1 * Imaging (Routine) - Authorized Specialty Diagnoses / Procedures Referred By Contac t Referred To Contact Cardiology Diagnoses Critical limb ischemia of left lower extremity Pseudoaneurysm of left femoral artery (CMS/HCC) Procedures VAS Ankle Brachial Index - Segmental Terrell Gautam MD [id number] [place] [address] Phone: tel: fax: Referral ID Status Reason Start Date Expiration Date Visits Requested Visits Authorized [id number] Authorized Perform Procedure 10/19/2024 04/20/2026 1 1 * Consultation (Routine) - Authorized Specialty Diagnoses / Procedures Referred By Contact Referred To Contact Vascular Surgery / [facility] Diagnoses Critical limb ischemia of left lower extremity Pseudoaneurysm of left femoral artery (CMS/HCC) Terrell Gautam MD [address] [place] [address] Phone: tel: fax:[phone] [facility] [address] [place] [address] 5th Floor [address] [place] [address] Phone: tel: fax: Referral ID Status Reason Start Date Expiration Date Visits Requested Visits Authorized [id number] Authorized Specialty Services Required 10/19/2024 04/20/2026 [address] Gautam, with SIL, arterial duplex Reason for Visit * Auth/Cert (Routine) Specialty Diagnoses / Procedures Referred By Susan t Referred To Contact Diagnoses Critical limb ischemia of left lower extremity Critical limb ischemia of left lower extremity [I70.222] Procedures PA VEIN BYPASS GRAFT,FEM-POP CREATION, BYPASS, ARTERIAL, FEMORAL TO POPLITEAL Terrell Gautam MD [address] [place] [phone] Phone: tel: fax: [facility] A OPERATING ROOM [address] [place] [address] Phone: tel: Referral ID Status Reason Start Date Expiration Date Visits Re quested Visits Authorized [id number] 1 1 Encounter Details Date Type Department Care Team (Latest Contact Info) Description 10/17/2024 6:21 AM EDT - 10/19/2024 12:39 PM EDT Hospital Encounter [facility] H Inpatient [address] [place] [phone] Terrell Gautam MD [address] [place] [phone] Pseudoaneurysm of left femoral artery (CMS/HCC) [...] any time in the past 12 m [facility], were you homeless or [...] drink first t dino in the morning (EYE-CONTINUOUS MINING MACHINE OPERATOR) to steady your nerves or to get rid of a hangover? 0 10/18/2021 CAGE Questionnaire Score 0 022 Utilities Answer Date Recorded In the past 12 months has th [employer], gas, oil, or water [employer] threatened to shut off services in [...] provided Taken 10/17/20242107 by Jourdan Grimes II puppet maker Review/Management: medications reviewed Problem: Skin Injury Risk [...] and Vomiting Relief 10/19/2024 1145 by Keyla hCow Outcome: Met 10/19/2024 1048 by Keyla Chow [...] Ongoing, Progressing Intervention: Promote Activity and Functional Cross Anchor Flowsheets (Taken 10/19/2024 1048) Self-Care Promotion: BADL personal objects within reach meal set-up provided * Yuni Ramires - Keyla Chow - 10/19/2024 11:45 AM EDT Images from the original note were not included. [id number] After Peripheral Artery Bypass Surgery: In the [...] home. Last Reviewed Date: 2023 00:00:00 ?? [id number] [employer]. All rights reserved. This information is not intended as a substitute for professional medical care. Always follow your healthcare professional's instructions. * Progress Notes - Emelina Friend - 10/19/2024 11:44 AM EDT Case Management Adult Progress Note Bev Bobby 64 y.o. male CSN: [id number] Admission: 10/17/2024 6:21 AM Primary Problem: Critical [...] if any other needs arise. Emelina Friend AUDIO VISUAL PROJECT MANAGER, EMBEDDED SOFTWARE ARCHITECT Social Work Case Management * Yuni OviJOSE MANUEL Chow Keyla - 10/19/2024 11:44 AM EDT Images from the original note were not included. [id number] Peripheral Artery Disease (PAD) Peripheral artery disease [...] cause. Last Reviewed Date: 2024 00:00:00 ?? [id number] [employer]. All rights reserved. This information is not intended as a substitute for professional medical care. Always follow your healthcare professional's instructions. * Yuni DiorNAVYA - Keyla Chow - 10/19/2024 11:44 AM EDT Images from the original note were not included. [id number] Leg Artery Emergencies: Critical Limb Ischemia (CLI) [...] appointments. Last Reviewed Date: 2023 00:00:00 ?? [id number] [employer]. All rights reserved. This information is not intended as a substitute for professional medical care. Always follow your healthcare professional's instructions. * Discharge Summary - Dandy Baltazar MD - 10/19/2024 11:31 AM EDT Hospitalization Admit Date/Time: 10/17/2024 6:21 AM Admitting Attending: Terrell Gautam Discharge Date: 10/19/24 Discharge Attending Physician: Nirmal Cueto MD PCP name and Address: Asad Victor MD (Inactive) [address] [place] [address] / [facility] [address] Referring provider name and address: Timothy Marques PA [address] [place] [address] Chief Concern, Brief History of Present Illness, and Hospital Course Bev Bobby is an 64 y.o. 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 He [...] Your Medications These medications were sent to [facility] - [place], [place] - [address], [facility] [address] acetaminophen 500 MG tablet clopidogrel 75 MG [...] of water. 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 He [...] provided Taken 10/17/20242107 by Jourdan Grimes II, puppet maker Review/Management: medications reviewed Problem: Skin Injury Risk [...] Ongoing, Progressing Intervention: Promote Activity and Functional Cross Anchor Flowsheets (Taken 10/19/2024 1048) Self-Care Promotion: BADL [...] evaluation. PARTICIPANTS IN CARE Visitors Present No Oracle Fusion Middleware Architect (if applicable) PRESENTATION Oxygen Oxygen Therapy: None [...] Level of Mobility Ambulatory- household only Mobility Cross Anchor Independent gait with device (rollator) History of [...] numbness in rodney) BED MOBILITY Level of Cross Anchor Physical/Non- physical Assist Adaptive Equipment Utilized Rolling/ Turning Scooting/ Bridging Modified independence (anteriorly to EOB) Bed rails Supine to Sit Modified Cross Anchor (to the right) (HOB flat) Bed rails Sit to Supine Interventions HOB flat to simulate home environment TRANSFERS Level of Cross Anchor Physical/Non- physical Assist Adaptive Equipment Utilized Sit [...] stable surfaces during transitions. AMBULATION Level of Cross Anchor Distance Adaptive Equipment Utilized Ambulation Standby assist, [...] Posture: Forward head, Rounded shoulders Level of Cross Anchor Balance Support Interventions Static Sit Independent Right [...] 3-5 steps with a railing?: A little [facility] 6-Clicks Mobility Assessment Total : 22 ASSESSMENT [...] evaluation/session. Participants in Care Family/Caregiver Present: No Oracle Fusion Middleware Architect: Not Applicable Presentation Oxygen Therapy: None (Room [...] Level of Mobility: Ambulatory- household only Mobility Cross Anchor: Independent gait with device (rollator) History of [...] Mobility Bed Mobility Exam: Scooting/Bridging Level of Cross Anchor: Modified independence (anteriorly to EOB) Assistive Device: Bed rails Bed Mobility Exam: Supine to Sit Level of Cross Anchor: Modified Cross Anchor (to the right) Physical/Nonphysical Assist: (HOB flat) Assistive Device: Bed rails Transfers Transfer Exam: Sit to stand Level of Cross Anchor: Stand-by assist Physical/Nonphysical Assist: Supervision, Verbal Cues, Minimal cues Assistive Device: Walker, rolling Transfer Exam: Stand to Sit Level of Cross Anchor: Stand-by assist Physical/Nonphysical Assist: Supervision, Verbal Cues, [...] regarding toileting at this time. Standardized Assessments [facility] 6-Click Daily Activities Help from Other: Don/Doff Regular Lower Body Clothings: None Help From Other: Bathing: Little Help From Other: Toileting: None Help From Other: Don/Doff Upper Body Clothings: None Help From Other: Grooming: None Help From Other: Eating Meals: None [facility] 6 Click - Daily Activities Score: 23/24 [facility] Scoring Interpretation: Scores greater than 20.5 suggest [...] Note Bev Bobby 64 y.o. male CSN: [id number] Admission: 10/17/2024 6:21 AM Primary Problem: Critical limb ischemia of left lower extremity Multifocal Button Inspector reviewed chart and spoke with patient to complete this Initial Case Management Assessment. PCP: Asad Victor MD (Inactive) - Dr. Palomo Preferred pharmacy is [facility] Emergency Contact: Extended Emergency Contact Information Primary Emergency Contact: Patti Hill Relation: Sister Oracle Fusion Middleware Architect needed? No Insurance: Primary Visit Coverage Payer Plan Sponsor Code Group Number Group Name [facility] MEDICARE [facility] MEDICARE REPLACEMENT [id number] Primary Visit Coverage Subscriber Subscriber ID Subscriber Name Subscriber N Subscriber Address [id number] BEV BOBBY [id number] [place] [address] Secondary Visit Coverage Payer Plan Sponsor Code Group Number Group Name [facility] MEDICAID [facility] Secondary Visit Coverage Subscriber Subscriber ID Subscriber Name Subscriber N Subscriber Address [id number] BEV BOBBY [phone] [place] [address] Patient information: Primary Caregiver: Self Daily Living Activities: Functional Status: Independent Living Arrangements: Alone Type of Residence: Private residence, Single Level [address] [place] [address] Current DME: Equipment Currently Used at Home: walker, rollator Income Information: Income Source: Retired Income/Expense Information: Income meets expenses Current Resources Utilized: Food [place] Housing Circumstances-Z Codes: Housing Circumstances (select all [...] Dialysis Services: None. Living Will/Advance Directive/Power of Yarn Salvager /Guardian: Denied. Additional Comments: Patient is not medically ready for discharge. SW will continue to follow. Mariia Macedo EMBEDDED SOFTWARE ARCHITECT * Care Plan - Emilia Alonso RN [...] from the original note were not included. [facility] Department of Surgery Division [...] Agree with above assessment and evaluation from resident/TRADE PROMOTION ANALYST. * Op Note - Terrell Gautam MD - 10/17/2024 8:52 AM EDT Operative Note Date: 10/17/24 Location: [facility] Name: Bev Bobby, : 1960, Diagnoses: Pre-op Diagnosis Critical limb ischemia of left lower extremity Common femoral artery pseudoaneurysm Post-op Diagnosis Critical limb ischemia of left lower extremity Common femoral artery pseudoaneurysm Procedure(s): Left common/superficial/profunda femoral thromboendarterectomy with bovine patch repair Left external iliac artery/CORRECTIONAL CASE RECORDS SUPERVISOR stent Attending Surgeon(s): * Terrell Gautam - Primary Purchasing Internship(s): * Luna Beckett MD - Resident - [...] Necessity Reasons Recent surgery contiguous with urinary tract/APPELLATE LAW CLERK/colorectal 10/17/24 190 Output (mL) 50 mL 10/18/24 08 Implants Type Name Action Serial No. VASCUGUARD 8 X 8 - [id number] Implanted STENT ENDOPROSTHESIS VIABAHN 9FR [id number] - [id number] Implanted [id number] Specimen: Specimens ID Source Frozen? 1 Other [...] and distal control. We then proceeded with tmptr-hui-mmna exposure of the popliteal artery. A medial [...] dilated thestent with a 9 mm [place]. We closed the arteriotomy with a single [...] 10/17/2024 8:52 AM EDT Date: 10/17/24 Location: [facility] Name: Bev Perez Kanu, : 1960, Diagnoses: Pre-op Diagnosis Critical limb ischemia of left lower extremity Common femoral artery pseudoaneurysm Post-op Diagnosis Critical limb ischemia of left lower extremity Common femoral artery pseudoaneurysm Procedure(s): Left common/superficial/profunda femoral thromboendarterectomy with bovine patch repair Left external iliac artery/CORRECTIONAL CASE RECORDS SUPERVISOR stent Attending Surgeon(s): * Terrell Gautam - Primary Purchasing Internship(s): * Luna Beckett MD - Resident - Assisting * Dandy Baltazar MD - Fellow Anesthesia: General ASA: III Blood Administration: Blood Product Administration History None Estimated Blood Loss: 300 mL Drains: Urethral Catheter Temperature probe 16 Fr. (Active) Implants Type Name Action Serial No. VASCUGUARD 8 X 8 - [id number] Implanted STENT ENDOPROSTHESIS VIABAHN 9FR [id number] - [id number] Implanted [id number] Specimen: Specimens ID Source Frozen? 1 Other [...] issues. 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 He previouslyunderwent thrombin injection. He reports pain in his calves. He presents today for scheduled left lower extremity femoral to tbrbg-[id number] popliteal bypass. Planned likely use PTFE. He [...] 16. Results Review {Vanishing Link Review Results :[id number] I have reviewed the latest lab and imaging results. Assessment & Plan Critical limb ischemia of left lower extremity Proceed with scheduled surgery left lower extremity femoral to dyuuw-pde-icam popliteal artery bypass graft. Extensive discussion had [...] Info) Description 11/26/2024 2:00 PM EDT Appointment [facility] [address] [place] [address] 11/26/2024 2:30 PM EDT Appointment [facility] [address] [place] [address] 11/26/2024 3:20 PM EDT Office Visit [facility] [address] Floor [address] [place] [address] Elisabet Schuster, GLENDA [address] [facility] [address] [place] [address] 11/29/2024 2:30 PM EDT Office Visit [facility] [address] [place] [phone] Oscar Appiah MD [address] [facility] [address] [place] [address] Pending Results Name Type Priority [...] PREPARE RBC STAT 10/17/2024 8:06 AM EDT PA VEIN BYPASS GRAFT,FEM-POP 10/17/2024 7:38 AM EDT [...] Comment 10/19/2024 11:42 AM EDT HEALTHCARE LAB Print Production Manager ID KamranJob 10/20/19 11:42 AM EDT HEALTHCARE LAB Device ID [id number] 10/19/2024 11:[address] [facility] Specimen Type POC Capillary 10/19/2024 11:[address] [facility] Blood Capillary blood specimen / Unknown 10/19/2024 11:40 AM EDT 10/19/2024 11:42 AM EDT us Terrell Gautam MD LAB POINT OF CARE TE ST DOCKED DEVICE UNSOLICITED RESULTS Final Result Performing Organization Address City/State/[facility] Co de Phone Number HEALTHCARE LAB [address] [place] [address] * (ABNORMAL) Protime-INR (10/19/2024 8:25 AM EDT) Prothrombin Time 17.5(H) 12.0 - 14.3 sec LAB COAGULATION METHOD 10/19/2024 9:25 AM EDT [facility] INR 1.4(H) 0.9 - 1.1 LAB COAGULATION METHOD 10/19/2024 9:25 AM EDT [facility] Blood Venous blood specimen / Unknown Venipuncture / Unknown 10/19/2024 8:25 AM EDT 10/19/2024 8:43 AM EDT Narrative [facility] - 10/19/2024 9:25 AM [...] Cueto MD LAB BLOOD ORDERABLES Final Result [facility] [address] [place] [address] * (ABNORMAL) Phosphorus (10/19/2024 8:25 AM EDT) Phosphorus, Plasma 2.2(L) 2.5 - 4.5 mg/dL 10/19/2024 9:12 AM EDT [facility] Blood Venous blood specimen / Unknown Venipuncture / Unknown 10/19/2024 8:25 AM EDT 10/19/2024 8:43 AM EDT Nirmal Cueto MD LAB BLOOD ORDERABLES Final Result Performing Organization Address City/[facility]/ZIP Co de Phone Number [facility] [address] [place] [address] * Magnesium (10/19/2024 8:25 AM EDT) Magnesium, Plasma 2.1 1.9 - 2.4 mg/dL 10/19/2024 9:12 AM EDT [facility] Blood Venous blood specimen / Unknown Venipuncture / Unknown 10/19/2024 8:25 AM EDT 10/19/2024 8:43 AM EDT Nirmal Cueto MD LAB BLOOD ORDERABLES Final Result Performing Organization Address City/[facility]/ZIP Co de Phone Number [facility] [address] [place] [address] * (ABNORMAL) Basic metabolic panel (10/19/2024 8:25 AM EDT) Glucose, Plasma 191(H) 74 - 99 mg/dL 10/19/2024 9:12 AM EDT [facility] BUN, Plasma 18 8 - 23 mg/dL 10/19/2024 9:12 AM EDT [facility] Creatinine, Plasma 0.76 0.70 - 1.20 mg/dL 10/19/2024 9:12 AM EDT [facility] BUN/Creatinine Ratio 24 10/19/2024 9:12 AM EDT [facility] Sodium, Plasma 135(L) 136 - 145 mmol/L 10/19/2024 9:12 AM EDT [facility] Potassium, Plasma 4.1 3.6 - 4.9 mmol/L 10/19/2024 9:12 AM EDT [facility] Chloride, Plasma 104 97 - 107 mmol/L 10/19/2024 9:12 AM EDT [facility] CO2, Plasma 22 22 - 29 mmol/L 10/19/2024 9:12 AM EDT [facility] Anion Gap 9 6 - 16 mmol/L 10/19/2024 9:12 AM EDT [facility] Total Calcium, Plasma 8.4(L) 8.9 - 10.2 mg/dL 10/19/2024 9:12 AM EDT [facility] eGFRcr 99.7 mL/min/1.7 3m*2 10/19/2024 9:12 AM EDT [facility] Comment:Reported eGFRcr in m L/min/1.73m2 is based the CKD-EPI 2020 equation that does not use a race coefficient. Blood Venous blood specimen / Unknown Venipuncture / Unknown 10/19/2024 8:25 AM EDT 10/19/2024 8:43 AM EDT us Nirmal Cueto MD LAB BLOOD ORDERABLES Final Result [facility] [address] [place] [address] * (ABNORMAL) CBC W/O Differential (10/19/2024 8:25 AM EDT) WBC Count 14.10(H) 3.70 - 10.30 10*3/uL LAB HEMATOLOGY METHOD 10/19/2024 8:52 AM EDT [facility] RBC Count 2.61(L) 4.60 - 6.10 10*6/uL LAB HEMATOLOGY METHOD 10/19/2024 8:52 AM EDT [facility] HGB 8.0(L) 13.7 - 17.5 g/dL LAB HEMATOLOGY METHOD 10/19/2024 8:52 AM EDT [facility] HCT 24.3(L) 40.0 - 51.0 % LAB HEMATOLOGY METHOD 10/19/2024 8:52 AM EDT [facility] Platelet Count 318 155 - 369 10*3/uL LAB HEMATOLOGY METHOD 10/19/2024 8:52 AM EDT [facility] MCV 93 79 - 98 fL LAB HEMATOLOGY METHOD 10/19/2024 8:52 AM EDT [facility] MCH 30.7 26.0 - 32.0 pg LAB HEMATOLOGY METHOD 10/19/2024 8:52 AM EDT [facility] MCHC 32.9 30.7 - 35.5 g/dL LAB HEMATOLOGY METHOD 10/19/2024 8:52 AM EDT [facility] RDW 13.4 11.5 - 14.5 % LAB HEMATOLOGY METHOD 10/19/2024 8:52 AM EDT [facility] MPV 9.6 8.8 - 12.5 fL LAB HEMATOLOGY METHOD 10/19/2024 8:52 AM EDT [facility] nRBC 0.0 <=0.0 per 100 WBCs LAB HEMATOLOGY METHOD 10/19/2024 8:52 AM EDT [facility] Blood Venous blood specimen / Unknown Venipuncture / Unknown 10/19/2024 8:25 AM EDT 10/19/2024 8:44 AM EDT us Nirmal Cueto MD LAB BLOOD ORDERABLES Final Result [facility] [address] [place] [address] * (ABNORMAL) POCT glucose meter (10/19/2024 7:35 AM EDT) [facility] POCT Glucose 187(H) 74 - 99 mg/dL [...] Comment 10/19/2024 7:37 AM EDT [facility]ALTH[facility]ARE [facility] Print Production Manager ID Job Andrew 10/20/19 7:37 AM EDT [facility]ALTH[facility]ARE LAB Device ID [id number] 10/19/2024 7:37 AM EDT [facility] Specimen Type POC Capillary 10/19/2024 7:37 AM EDT [facility] Blood Capillary blood specimen / Unknown 10/19/2024 7:35 AM EDT 10/19/2024 7:37 AM EDT us Terrell Gautam MD LAB POINT OF CARE TE ST DOCKED DEVICE UNSOLICITED RESULTS Final Result Performing Organization Address City/State/[facility] Co de Phone Number [facility] [address] [place] [address] * (ABNORMAL) POCT glucose meter (10/18/2024 7:22 PM EDT) [facility] POCT Glucose 178(H) 74 - 99 mg/dL [...] 10/18/2024 7:24 PM EDT [facility] Print Production Manager ID Mahesh Aldana 10/18/2024 7:24 PM EDT [facility] Device ID [id number] 10/18/2024 7:24 PM EDT [facility] Specimen Type POC Capillary 10/18/2024 7:24 PM EDT [facility] Blood Capillary blood specimen / Unknown 10/18/2024 7:22 PM EDT 10/18/2024 7:24 PM EDT Terrell Gautam MD LAB POINT OF CARE TE ST DOCKED DEVICE UNSOLICITED RESULTS Final Result Performing Organization Address City/[facility]/ZIP Co de Phone Number [facility] [address] [place] [address] * (ABNORMAL) POCT glucose meter (10/18/2024 6:07 [...] Comment 10/18/2024 6:09 PM EDT HEALTH[facility]ARE LAB Print Production Manager ID David Parks 10/18/2024 6:09 PM EDT [facility]ALTH[facility]ARE LAB Device ID [id number] 10/18/2024 6:09 PM EDT [facility] Specimen Type POC Capillary 10/18/2024 6:09 PM EDT [facility] Blood Capillary blood specimen / Unknown 10/18/2024 6:07 PM EDT 10/18/2024 6:09 PM EDT us Terrell Gautam MD LAB POINT OF CARE TE ST DOCKED DEVICE UNSOLICITED RESULTS Final Result [facility] [address] [id number] * (ABNORMAL) POCT glucose meter (10/18/2024 11:56 [...] Comment 10/21/2024 7:42 AM EDT [facility]ALTH[facility]ARE LAB Print Production Manager ID Venessa Marcano 10/21/2024 7:42 AM EDT [facility] Device ID [id number] 10/21/2024 7:42 AM EDT [facility] Specimen Type POC Capillary 10/21/2024 7:42 AM EDT [facility] Blood Capillary blood specimen / Unknown 10/18/2024 11:56 AM EDT 10/21/2024 7:42 AM EDT us Terrell Gautam MD LAB POINT OF CARE TE ST DOCKED DEVICE UNSOLICITED RESULTS Final Result Performing Organization Address City/State/[facility] de Phone Number [facility]ARE LAB [address] [place] [address] * (ABNORMAL) POCT glucose meter (10/18/2024 9:24 [...] 10/21/2024 7:42 AM EDT [facility] Print Production Manager ID Emilia Alonso 7:42 AM EDT [facility] Device ID [id number] 10/21/2024 7:42 AM EDT [facility] Specimen Type POC Venous 10/21/2024 7:42 AM EDT [facility] Blood Venous blood specimen / Unknown 10/18/2024 9:24 AM EDT 10/21/2024 7:42 AM EDT us Terrell Gautam MD LAB POINT OF CARE TE ST DOCKED DEVICE UNSOLICITED RESULTS Final Result [facility] [address] [place] [address] * (ABNORMAL) POCT glucose meter (10/18/2024 7:36 AM EDT) [facility] POCT Glucose 215(H) 74 - [...] for testing. Comment 10/18/2024 7:[address] [facility] Print Production Manager ID Kizzy Godfrey 025 7:38 AM EDT [facility] Device ID [id number] 10/18/2024 7:[address] [facility] Specimen Type POC Capillary 10/18/2024 7:[address] [facility] Blood Capillary blood specimen / Unknown 10/18/2024 7:36 AM EDT 10/18/2024 7:38 AM EDT us Terrell Gautam MD LAB POINT OF CARE TE ST DOCKED DEVICE UNSOLICITED RESULTS Final Result [facility] [address] [place] [address] * (ABNORMAL) CBC (10/18/2024 2:09 AM EDT) [facility] WBC Count 16.71(H) 3.70 - 10.30 10*3/uL LAB HEMATOLOGY METHOD 10/18/2024 2:33 AM EDT [facility] [facility] RBC Count 2.78(L) 4.60 - 6.10 10*6/uL LAB HEMATOLOGY METHOD 10/18/2024 2:33 AM EDT [facility] HGB 8.5(L) 13.7 - 17.5 g/dL LAB HEMATOLOGY METHOD 10/18/2024 2:33 AM EDT [facility] HCT 25.7(L) 40.0 - 51.0 % LAB HEMATOLOGY METHOD 10/18/2024 2:33 AM EDT [facility] Platelet Count 324 155 - 369 10*3/uL LAB HEMATOLOGY METHOD 10/18/2024 2:33 AM EDT [facility] MCV 92 79 - 98 fL LAB HEMATOLOGY METHOD 10/18/2024 2:33 AM EDT [facility] MCH 30.6 26.0 - 32.0 pg LAB HEMATOLOGY METHOD 10/18/2024 2:33 AM EDT [facility] MCHC 33.1 30.7 - 35.5 g/dL LAB HEMATOLOGY METHOD 10/18/2024 2:33 AM EDT [facility] RDW 13.3 11.5 - 14.5 % LAB HEMATOLOGY METHOD 10/18/2024 2:33 AM EDT [facility] MPV 9.4 8.8 - 12.5 fL LAB HEMATOLOGY METHOD 10/18/2024 2:33 AM EDT [facility] nRBC 0.0 <=0.0 per 100 WBCs LAB HEMATOLOGY METHOD 10/18/2024 2:33 AM EDT [facility] Blood Venous blood specimen / Unknown Venipuncture / Unknown 10/18/2024 2:09 AM EDT 10/18/2024 2:25 AM EDT Nirmal Cueto MD LAB BLOOD ORDERABLES Final Result [facility] [address] [place] [address] * (ABNORMAL) Basic metabolic panel (10/18/2024 2:09 AM EDT) Glucose, Plasma 206(H) 74 - 99 mg/dL 10/18/2024 2:53 AM EDT [facility] BUN, Plasma 24(H) 8 - 23 mg/dL 10/18/2024 2:53 AM EDT [facility] Creatinine, Plasma 1.17 0.70 - 1.20 mg/dL 10/18/2024 2:53 AM EDT [facility] BUN/Creatinine Ratio 21 10/18/2024 2:53 AM EDT [facility] Sodium, Plasma 136 136 - 145 mmol/L 10/18/2024 2:53 AM EDT [facility] Potassium, Plasma 4.8 3.6 - 4.9 mmol/L 10/18/2024 2:53 AM EDT [facility] Chloride, Plasma 104 97 - 107 mmol/L 10/18/2024 2:53 AM EDT [facility] CO2, Plasma 22 22 - 29 mmol/L 10/18/2024 2:53 AM EDT [facility] Anion Gap 10 6 - 16 mmol/L 10/18/2024 2:53 AM EDT [facility] Total Calcium, Plasma 8.5(L) 8.9 - 10.2 mg/dL 10/18/2024 2:53 AM EDT [facility] eGFRcr 69.2 mL/min/1.7 3m*2 10/18/2024 2:53 AM EDT [facility] Comment:Reported eGFRcr in m L/min/1.73m2 is based the CKD-EPI 2020 equation that does not use a race coefficient. Blood Venous blood specimen / Unknown Venipuncture / Unknown 10/18/2024 2:09 AM EDT 10/18/2024 2:25 AM EDT Nirmal Cueto MD LAB BLOOD ORDERABLES Final Result [facility] [address] [place] [address] * (ABNORMAL) Magnesium (10/18/2024 2:09 AM EDT) Magnesium, Plasma 1.8(L) 1.9 - 2.4 mg/dL 10/18/2024 2:53 AM EDT [facility] Blood Venous blood specimen / Unknown Venipuncture / Unknown 10/18/2024 2:09 AM EDT 10/18/2024 2:25 AM EDT Nirmal Cueto MD LAB BLOOD ORDERABLES Final Result [facility] [address] [place] [address] * Phosphorus (10/18/2024 2:09 AM EDT) Phosphorus, Plasma 3.7 2.5 - 4.5 mg/dL 10/18/2024 2:53 AM EDT [facility] Blood Venous blood specimen / Unknown Venipuncture / Unknown 10/18/2024 2:09 AM EDT 10/18/2024 2:25 AM EDT Nirmal Cueto MD LAB BLOOD ORDERABLES Final Result Performing Organization Address [facility]/ZIP Co de Phone Number [facility] [address] [place] [address] * (ABNORMAL) Protime-INR (10/18/2024 2:09 AM EDT) Prothrombin Time 14.5(H) 12.0 - 14.3 sec LAB COAGULATION METHOD 10/18/2024 2:53 AM EDT [facility] INR 1.1 0.9 - 1.1 LAB COAGULATION METHOD 10/18/2024 2:53 AM EDT [facility] Blood Venous blood specimen / Unknown Venipuncture / Unknown 10/18/2024 2:09 AM EDT 10/18/2024 2:25 AM EDT Narrative [facility] - 10/18/2024 2:53 AM [...] Cueto MD LAB BLOOD ORDERABLES Final Result [facility] [address] [place] [address] * (ABNORMAL) POCT glucose meter (10/18/2024 2:08 AM EDT) [facility] POCT Glucose 202(H) 74 - [...] Comment 10/18/2024 2:10 AM EDT [facility] Print Production Manager ID Jourdan Grimes II 10/18/2024 2:10 AM EDT [facility] LAB Device ID [id number] 10/18/2024 2:10 AM EDT [facility] Specimen Type POC Capillary 10/18/2024 2:[address] [facility] Blood Capillary blood specimen / Unknown 10/18/2024 2:08 AM EDT 10/18/2024 2:10 AM EDT us Terrell Gautam MD LAB POINT OF CARE TE ST DOCKED DEVICE UNSOLICITED RESULTS Final Result Performing Organization Address City/State/[facility] Co de Phone Number HEALTHCARE LAB [address] [place] [address] * (ABNORMAL) POCT glucose meter (10/17/2024 10:07 PM EDT) [facility] POCT Glucose 300(H) 74 - [...] Comment 10/17/2024 10:10 PM EDT [facility] Print Production Manager ID Jourdan Grimes II 10/17/2024 10:10 PM EDT [facility] LAB Device ID [id number] 10/17/2024 10:10 PM EDT [facility] Specimen Type POC Capillary 10/17/2024 10:10 PM EDT [facility] Blood Capillary blood specimen / Unknown 10/17/2024 10:07 PM EDT 10/17/2024 10:10 PM EDT Terrell Gautam MD LAB POINT OF CARE TE ST DOCKED DEVICE UNSOLICITED RESULTS Final Result Performing Organization Address City/[facility] Co de Phone Number [facility]ALTH[facility]ARE LAB [address] [place] [address] * (ABNORMAL) POCT glucose meter (10/17/2024 8:07 PM EDT) Pathologist [facility] POCT Glucose 391(H) 74 - 99 mg/dL [...] Comment 10/17/2024 8:10 PM EDT [facility] LAB Print Production Manager ID Jourdan Grimes II 10/17/2024 8:10 PM EDT [facility] LAB Device ID [id number] 10/17/2024 8:10 PM EDT [facility] Specimen Type POC Capillary 10/17/2024 8:[address] [facility] Blood Capillary blood specimen / Unknown 10/17/2024 8:07 PM EDT 10/17/2024 8:10 PM EDT Terrell Gautam MD LAB POINT OF CARE TE ST DOCKED DEVICE UNSOLICITED RESULTS Final Result Performing Organization Address City/[facility]/ZIP Co de Phone Number [facility] [address] [place] [address] * (ABNORMAL) POCT glucose meter (10/17/2024 4:01 PM EDT) Pathologist [facility] POCT Glucose 249(H) 74 - 99 mg/dL [...] Comment 10/17/2024 4:03 PM EDT [facility] LAB Print Production Manager ID Keisha Waller 10/17/2024 4:03 PM EDT [facility] LAB Device ID [id number] 10/17/2024 4:03 PM EDT [facility] Specimen Type POC Capillary 10/17/2024 4:03 PM EDT [facility] Blood Capillary blood specimen / Unknown 10/17/2024 4:01 PM EDT 10/17/2024 4:03 PM EDT us Terrell Gautam MD LAB POINT OF CARE TE ST DOCKED DEVICE UNSOLICITED RESULTS Final Result Performing Organization Address City/State/[facility] Co de Phone Number [facility]ALTHCARE LAB [address] [place] [address] * (ABNORMAL) POCT glucose meter (10/17/2024 1:25 PM EDT) [facility] POCT Glucose 225(H) 74 - [...] 10/17/2024 1:27 PM EDT [facility] Print Production Manager ID Kizzy Godfrey 025 1:27 PM EDT [facility]ALTH[facility]ARE LAB Device ID [id number] 10/17/2024 1:27 PM EDT [facility] LAB Specimen Type POC Capillary 10/17/2024 1:27 PM EDT [facility] Blood Capillary blood specimen / Unknown 10/17/2024 1:25 PM EDT 10/17/2024 1:27 PM EDT us Terrell Gautam MD LAB POINT OF CARE TE ST DOCKED DEVICE UNSOLICITED RESULTS Final Result Performing Organization Address City/[facility] Co de Phone Number [facility]ALTH[facility]ARE LAB [address] [place] [address] * [place] Less than 1 Hour Intraoperative (10/17/2024 1:18 PM EDT) Narrative IMAGING - 10/17/2024 2:05 PM EDT Images were obtained for surgical purposes. See Terrell Gautam's surgical note in the patient's chart for the findings. Terrell Gautam MD IMG FLUOROSCOPY PROCEDURES Fi nal Result Performing Organization Address [facility] Co de Phone Number IMAGING * POCT ACT (10/17/2024 12:23 PM EDT) ACT+ (HIGH RANGE) 211 68 - 600 Seconds 10/29/2024 7:28 AM EDT [facility]ALTH[facility]ARE LAB Print Production Manager ID Donna Mcmillan 10/29/2024 7:28 AM EDT [facility]ALTH[facility] ACT Device ID [id number] 10/29/2024 7:28 AM EDT [facility] Comment 10/29/2024 7:28 AM EDT [facility] Comment: ACT performed by [...] Final Result Performing Organization Address [facility] Co de Phone Number [facility] [address] [place], [place] [id number] [place] [address] LAB [address] [place] [address] * (ABNORMAL) Blood gas, arterial (10/17/2024 11:48 AM EDT) pH, Arterial 7.34 7.31 - 7.42 LAB HEMATOLOGY METHOD 10/17/2024 11:54 AM EDT [facility] pCO2, Arterial 41 32 - 45 mmHg LAB HEMATOLOGY METHOD 10/17/2024 11:54 AM EDT [facility] pO2, Arterial 202 >80 mmHg LAB HEMATOLOGY METHOD 10/17/2024 11:54 AM EDT [facility] SO2, Measured, Arterial 100(H) 94 - 98 % LAB HEMATOLOGY METHOD 10/17/2024 11:54 AM EDT [facility] Base Excess, Arterial -3.2(L) -2.0 - 3.0 mmol/L LAB HEMATOLOGY METHOD 10/17/2024 11:54 AM EDT [facility] Bicarbonate, Calculated, Arterial 22 22 - 26 mmol/L LAB HEMATOLOGY METHOD 10/17/2024 11:54 AM EDT [facility] Hematocrit, Whole Blood 28.6(L) 40.0 - 51.0 % LAB HEMATOLOGY METHOD 10/17/2024 11:54 AM EDT [facility] Sodium, Whole Blood 137 136 - 145 mmol/L LAB HEMATOLOGY METHOD 10/17/2024 11:54 AM EDT [facility] Potassium, Whole Blood 4.5 3.6 - 4.9 mmol/L LAB HEMATOLOGY METHOD 10/17/2024 11:54 AM EDT [facility] Chloride, Whole Blood 112(H) 97 - 107 mmol/L LAB HEMATOLOGY METHOD 10/17/2024 11:54 AM EDT [facility] Glucose, Whole Blood 201(H) 74 - 99 mg/dL LAB HEMATOLOGY METHOD 10/17/2024 11:54 AM EDT [facility] Ionized Calcium, Whole Blood 4.8 4.6 - 5.1 mg/dL LAB HEMATOLOGY METHOD 10/17/2024 11:54 AM EDT [facility] Lactate, Arterial, Whole Blood 2.3(H) 0.5 - 1.6 mmol/L LAB HEMATOLOGY METHOD 10/17/2024 11:54 AM EDT [facility] Blood Arterial blood specimen / Unknown Arterial Puncture / Unknown 10/17/2024 11:48 AM EDT 10/17/2024 11:53 AM EDT us Jenna Lopez CRNA LAB BLOOD ORDERABLES Final Re sult [facility] [address] [place] [address] * POCT ACT (10/17/2024 11:41 AM EDT) ACT+ (HIGH RANGE) 175 68 - 600 Seconds 10/29/2024 7:28 AM EDT [facility]ALTHCARE LAB Print Production Manager ID Oneyda Alicea 10/29/2024 7:28 AM EDT [facility] ACT Device ID [id number] 10/29/2024 7:28 AM EDT [facility] Comment 10/29/2024 7:28 AM EDT [facility] Comment: ACT performed by [...] DOCKED DEVICE UNSOLICITED RESULTS Final Result [facility] [address] LAB [address] [place] [address] * POCT ACT (10/17/2024 11:11 AM EDT) ACT+ (HIGH RANGE) 252 68 - 600 Seconds 10/29/2024 7:28 AM EDT [facility]ALTH[facility]ARE LAB Print Production Manager ID Donna Mcmillan 10/29/2024 7:28 AM EDT [facility] ACT Device ID [id number] 10/29/2024 7:28 AM EDT [facility] Comment 10/29/2024 7:28 AM EDT [facility] Comment: ACT performed by [...] UNSOLICITED RESULTS Final Result [facility] [address] LAB [address] [place] [address] * (ABNORMAL) Blood gas, arterial (10/17/2024 10:46 AM EDT) pH, Arterial 7.35 7.31 - 7.42 LAB HEMATOLOGY METHOD 10/17/2024 10:56 AM EDT [facility] pCO2, Arterial 42 32 - 45 mmHg LAB HEMATOLOGY METHOD 10/17/2024 10:56 AM EDT [facility] pO2, Arterial 161 >80 mmHg LAB HEMATOLOGY METHOD 10/17/2024 10:56 AM EDT [facility] SO2, Measured, Arterial 100(H) 94 - 98 % LAB HEMATOLOGY METHOD 10/17/2024 10:56 AM EDT [facility] Base Excess, Arterial -2.2(L) -2.0 - 3.0 mmol/L LAB HEMATOLOGY METHOD 10/17/2024 10:56 AM EDT [facility] Bicarbonate, Calculated, Arterial 23 22 - 26 mmol/L LAB HEMATOLOGY METHOD 10/17/2024 10:56 AM EDT [facility] Hematocrit, Whole Blood 29.9(L) 40.0 - 51.0 % LAB HEMATOLOGY METHOD 10/17/2024 10:56 AM EDT [facility] Sodium, Whole Blood 138 136 - 145 mmol/L LAB HEMATOLOGY METHOD 10/17/2024 10:56 AM EDT [facility] Potassium, Whole Blood 4.0 3.6 - 4.9 mmol/L LAB HEMATOLOGY METHOD 10/17/2024 10:56 AM EDT [facility] Chloride, Whole Blood 110(H) 97 - 107 mmol/L LAB HEMATOLOGY METHOD 10/17/2024 10:56 AM EDT [facility] Glucose, Whole Blood 174(H) 74 - 99 mg/dL LAB HEMATOLOGY METHOD 10/17/2024 10:56 AM EDT [facility] Ionized Calcium, Whole Blood 5.1 4.6 - 5.1 mg/dL LAB HEMATOLOGY METHOD 10/17/2024 10:56 AM EDT [facility] Lactate, Arterial, Whole Blood 1.4 0.5 - 1.6 mmol/L LAB HEMATOLOGY METHOD 10/17/2024 10:56 AM EDT [facility] Blood Arterial blood specimen / Unknown Arterial Puncture / Unknown 10/17/2024 10:46 AM EDT 10/17/2024 10:54 AM EDT us Jenna Lopez CRNA LAB BLOOD ORDERABLES Final Re sult [facility] [address] [place] [address] * POCT ACT (10/17/2024 10:37 AM EDT) ACT+ (HIGH RANGE) 206 68 - 600 Seconds 10/29/2024 7:[address] [facility] Print Production Manager ID Donna Mcmillan 10/29/2024 7:[address] [facility] ACT Device ID [id number] 10/29/2024 7:[address] [facility] Comment 10/29/2024 7:28 AM EDT [facility] Comment: ACT performed by [...] DOCKED DEVICE UNSOLICITED RESULTS Final Result [facility] [address] LAB [address] [place] [address] * Surgical Pathology Exam (10/17/2024 10:27 AM EDT) Case Report Surgical Pathology Case: [id number] Authorizing Provider: Terrell Gautam MD Collected: 10/17/2024 1027 Ordering Location: [facility] Received: 10/17/2024 1325 Pathologist: Haydee Osborne MD Specimen: Other (specify site), left common femoral plaque 10/21/2024 10:16 AM EDT [facility] Final Diagnosis A. LEFT COMMON FEMORAL PLAQUE, EXCISION: - CALCIFIED PLAQUE 10/21/2024 10:16 AM EDT [facility] at 1016 EDT Clinical Information Critical limb ischemia of left lower extremity [I70.222] 10/21/2024 10:16 AM EDT [facility] Gross Description A. LEFT COMMON FEMORAL PLAQUE Received in formalin labeled l eft common femoral plaque , is one aggregate of red-gabriel hard portions of plaque measuring 3.7 x 2.5 x 0.9 cm. The specimen is serially sectioned and service representative sections are submitted in cassette A1. Cold Time: <1m Kenia Aceves 10/21/2024 10:16 AM EDT [facility] Note: A resident was involved in the service. I attest I examined the relevant preparations for the specimens and confirmed the diagnosis or interpretation. 10/21/2024 10:16 AM EDT [facility] Tissue Topography unknown / Unknown 10/17/2024 10:27 AM EDT 10/17/2024 1:25 PM EDT Comment:Pre-op diagnosis: Critical limb ischemia of left lower extremity [I70.222] us Terrell Gautam MD LAB PATHOLOGY ORDERABLES Gwen grimaldo Result [facility] [address] [place] [address] * POCT ACT (10/17/2024 10:03 AM EDT) ACT+ (HIGH RANGE) 244 68 - 600 Seconds 10/29/2024 7:28 AM EDT [facility]ALTH[facility]ARE LAB Print Production Manager ID Donna Mcmillan Maya 10/29/2024 7:28 AM EDT [facility] ACT Device ID [id number] 10/29/2024 7:28 AM EDT [facility] Comment 10/29/2024 7:28 AM EDT [facility] Comment: ACT performed by [...] DOCKED DEVICE UNSOLICITED RESULTS Final Result [facility] [address] LAB [address] [place] [address] * (ABNORMAL) Blood gas, arterial (10/17/2024 9:45 AM EDT) pH, Arterial 7.37 7.31 - 7.42 LAB HEMATOLOGY METHOD 10/17/2024 9:55 AM EDT [facility] pCO2, Arterial 43 32 - 45 mmHg LAB HEMATOLOGY METHOD 10/17/2024 9:55 AM EDT [facility] pO2, Arterial 177 >80 mmHg LAB HEMATOLOGY METHOD 10/17/2024 9:55 AM EDT [facility] SO2, Measured, Arterial 100(H) 94 - 98 % LAB HEMATOLOGY METHOD 10/17/2024 9:55 AM EDT [facility] Base Excess, Arterial -0.5 -2.0 - 3.0 mmol/L LAB HEMATOLOGY METHOD 10/17/2024 9:55 AM EDT [facility] Bicarbonate, Calculated, Arterial 25 22 - 26 mmol/L LAB HEMATOLOGY METHOD 10/17/2024 9:55 AM EDT [facility] Hematocrit, Whole Blood 30.0(L) 40.0 - 51.0 % LAB HEMATOLOGY METHOD 10/17/2024 9:55 AM EDT [facility] Sodium, Whole Blood 137 136 - 145 mmol/L LAB HEMATOLOGY METHOD 10/17/2024 9:55 AM EDT [facility] Potassium, Whole Blood 4.3 3.6 - 4.9 mmol/L LAB HEMATOLOGY METHOD 10/17/2024 9:55 AM EDT [facility] Chloride, Whole Blood 108(H) 97 - 107 mmol/L LAB HEMATOLOGY METHOD 10/17/2024 9:55 AM EDT [facility] Glucose, Whole Blood 191(H) 74 - 99 mg/dL LAB HEMATOLOGY METHOD 10/17/2024 9:55 AM EDT [facility] Ionized Calcium, Whole Blood 5.0 4.6 - 5.1 mg/dL LAB HEMATOLOGY METHOD 10/17/2024 9:55 AM EDT [facility] Lactate, Arterial, Whole Blood 1.3 0.5 - 1.6 mmol/L LAB HEMATOLOGY METHOD 10/17/2024 9:55 AM EDT [facility] Blood Arterial blood specimen / Unknown Arterial Line / Unknown 10/17/2024 9:45 AM EDT 10/17/2024 9:52 AM EDT Jenna Lopez TRADE PROMOTION ANALYST LAB BLOOD ORDERABLES Final Re sult [facility] [address] [place] [address] * (ABNORMAL) Blood gas, arterial (10/17/2024 8:47 AM EDT) pH, Arterial 7.37 7.31 - 7.42 LAB HEMATOLOGY METHOD 10/17/2024 8:59 AM EDT [facility] pCO2, Arterial 43 32 - 45 mmHg LAB HEMATOLOGY METHOD 10/17/2024 8:59 AM EDT [facility] pO2, Arterial 205 >80 mmHg LAB HEMATOLOGY METHOD 10/17/2024 8:59 AM EDT [facility] SO2, Measured, Arterial 100(H) 94 - 98 % LAB HEMATOLOGY METHOD 10/17/2024 8:59 AM EDT [facility] Base Excess, Arterial -0.3 -2.0 - 3.0 mmol/L LAB HEMATOLOGY METHOD 10/17/2024 8:59 AM EDT [facility] Bicarbonate, Calculated, Arterial 25 22 - 26 mmol/L LAB HEMATOLOGY METHOD 10/17/2024 8:59 AM EDT [facility] Hematocrit, Whole Blood 31.3(L) 40.0 - 51.0 % LAB HEMATOLOGY METHOD 10/17/2024 8:59 AM EDT [facility] Sodium, Whole Blood 138 136 - 145 mmol/L LAB HEMATOLOGY METHOD 10/17/2024 8:59 AM EDT [facility] Potassium, Whole Blood 4.0 3.6 - 4.9 mmol/L LAB HEMATOLOGY METHOD 10/17/2024 8:59 AM EDT [facility] Chloride, Whole Blood 108(H) 97 - 107 mmol/L LAB HEMATOLOGY METHOD 10/17/2024 8:59 AM EDT [facility] Glucose, Whole Blood 162(H) 74 - 99 mg/dL LAB HEMATOLOGY METHOD 10/17/2024 8:59 AM EDT [facility] Ionized Calcium, Whole Blood 5.2(H) 4.6 - 5.1 mg/dL LAB HEMATOLOGY METHOD 10/17/2024 8:59 AM EDT [facility] Lactate, Arterial, Whole Blood 1.7(H) 0.5 - 1.6 mmol/L LAB HEMATOLOGY METHOD 10/17/2024 8:59 AM EDT [facility] Blood Arterial blood specimen / Unknown Arterial Puncture / Unknown 10/17/2024 8:47 AM EDT 10/17/2024 8:58 AM EDT us Jenna Lopez [facility] LAB BLOOD ORDERABLES Final Re sult [facility] [address] [place] [address] * POCT ACT (10/17/2024 8:46 AM EDT) ACT+ (HIGH RANGE) 101 68 - 600 Seconds 10/29/2024 7:28 AM EDT [facility]ALTHCARE LAB Print Production Manager ID Donna Mcmillan Maya 10/29/2024 7:28 AM EDT [facility]ALTH[facility] LAB ACT Device ID [id number] 10/29/2024 7:28 AM EDT [facility]ALTH[facility] Comment 10/29/2024 7:28 AM EDT [facility] Comment: ACT performed by [...] Final Result Performing Organization Address [facility] Co de Phone Number HEALTHCARE LAB [address] LAB [address] [place] [address] * Type and Screen (10/17/2024 7:19 AM EDT) Pathologist [facility] ABO/Rh A Negative 10/17/2024 7:04 AM EDT BLOOD BANK Antibody Screen Negative 10/17/2024 7:04 AM EDT BLOOD BANK Specimen Expiration 10/20/2024 23:59 10/17/2024 7:04 AM EDT BLOOD BANK Blood Venous blood specimen / Unknown Venipuncture / Unknown 10/17/2024 7:19 AM EDT 10/17/2024 7:28 AM EDT us Maria Fernanda Mccallum MD LAB BLOOD BANK TEST ORDERAB LES Final Result Performing Organization Address [facility] de Phone Number BLOOD BANK [address] * (ABNORMAL) POCT glucose meter (10/17/2024 6:44 AM EDT) Pathologist [facility] POCT Glucose 178(H) 74 - 99 mg/dL [...] 10/17/2024 6:49 AM EDT [facility] Print Production Manager ID Hunter Burroughs 10/18/19 6:49 AM EDT [facility] Device ID [id number] 10/17/2024 6:49 AM EDT [facility] Specimen Type POC Capillary 10/17/2024 6:49 AM EDT [facility]ALTH[facility]ARE LAB Blood Capillary blood specimen / Unknown 10/17/2024 6:44 AM EDT 10/17/2024 6:49 AM EDT Terrell Gautam MD LAB POINT OF CARE TE ST DOCKED DEVICE UNSOLICITED RESULTS Final Result [facility] [address] [place] [address] documented in this encounter Visit Diagnoses Diagnosis [...] Patient/family refused) [id number] (Not Given - Provider: Kassei Mao RN - Reason: Patient/family refused - [...] documented as of this encounter Care Teams Snowboarding Instructor Relationship Specialty Start Date End Date Asad Victor MD [address] [place] [id number] PCP - General 10/07/22 documented as of this encounter
--- OUTSIDE RECORDS SUMMARY | 2024-10-17 07:51 | XMS_ITS | Encounter Summary ---
Author Organization [facility] Address [address] [id number] Care Team Providers Care Drapery Hemmer Automatic Name Role Phone Asad Victor MD Primary Care Provider + [phone] Reason for Visit * Auth/Cert (Routine) Specialty Diagnoses / Procedures Referred By Contac t Referred To Contact Diagnoses Critical limb ischemia of left lower extremity Critical limb ischemia of left lower extremity [I70.222] Procedures [place] VEIN BYPASS GRAFT,FEM-POP CREATION, BYPASS, ARTERIAL, FEMORAL TO POPLITEAL Terrell Gautam MD [address] [facility] [address] [place] [address] Phone: tel: fax: PAV A OPERATING ROOM [address] [place] [address] Phone: tel: Referral ID Status Reason Start Date Expiration Date Visits Re quested Visits Authorized [id number] 1 1 Encounter Details Date Type Department Care Team (Late st Contact Info) Description 10/17/2024 7:51 AM EDT Anesthesia Event PAV A OPERATING ROOM [address] [place] [phone] Maria Fernanda Mccallum MD [address] [place] [address] Anesthesia Record Procedure Summary Procedure [...] Hand; Site Prep: Chlorhexidine ; Local Anesth: [place]; Technique: Anatomical landmarks; Inserted by: CHRISTIAN Acuna; [...] drink first t dino in the morning (EYE-BUILDING ANALYST/SUPERVISOR) to steady your nerves or to get [...] * Anesthesia Postprocedure Evaluation - Jenna Lopez, MEAT PICKLER - 10/17/2024 1:29 PM EDT Patient: Mono [...] by Swetha Villareal MD Staffing Performed: ISH MEAT PICKLER: Jenna Lopez CRNA * Anesthesia Procedure Notes - Jenna Lopez CRNA - 10/17/2024 9:00 AM EDT Associated Order(s): Airway Airway Date/Time: 10/17/2024 8:03 AM Reason: elective Airway not difficult General Information and Staff Patient location during procedure: OR MEAT PICKLER: Jenna Lopez CRNA Performed: MEAT PICKLER Patient Condition Indications for airway management: anesthesia [...] note 09/25/24 (media) + CAD s/p multiple ID's and 3V CABG 02/2019, 2 stents prior to CABG Atrial Fibrillation with RVR s/p CABG + carotid artery disease s/p R CEA 2016 + 3rd degree AV block JAW SKINNER-P placed 08/2023 for Wenkeback with 11 sec pause + HLD + HTN - controlled + PAD 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 CORONARY ANGIOPLASTY Left Coronary Angiography With Concomitant Left Heart Catheterization from [employer] ??? CORONARY ARTERY BYPASS GRAFT N/A 2018 [...] [facility] [address] [place] [address] 11/26/2024 2:30 PM EDT Appointment [facility] [address] [place] [address] 11/26/2024 3:20 PM EDT Office Visit [facility] [address] [place] [address] Elisabet Schuster PA [address] [facility] [address] [place] [address] 11/29/2024 2:30 PM EDT Office Visit [facility] [address] [place] [address] Oscar Appiah MD [address] [facility] [address] [place] [address] documented as of this encounter Goals Goal [...] Performed by Swetha Villareal MD Staffing Performed: MEAT PICKLER MEAT PICKLER: Jenna Lopez CRNA Maria Fernanda Mccallum MD ANESTHESIA ORDERABLES Edite d Result - Final * [place] AN ELECTIVE ENDOTRACHEAL AIRWAY, PB ANESTHESIA PLACEHOLDER (10/17/2024 8:03 AM EDT) Narrative Jenna Lopez CRNA - 10/17/2024 8:03 AM EDT Jenna Lopez CRNA 10/17/2024 9:00 AM Airway Date/Time: 10/17/2024 8:03 AM Reason: elective Airway not difficult General Information and Staff Patient location during procedure: OR MEAT PICKLER: Jenna Lopez CRNA Performed: ISH Patient Condition [...] Mccallum MD ANESTHESIA ORDERABLES Final Result * [facility] AN POCUS CARDIAC PROCDOC (10/17/2024 7:18 [...] Trace AR. The images were Saved in [employer]. The study was technically adequate. Comments: I [...] documented as of this encounter Care Teams Drapery Hemmer Automatic Relationship Specialty Start Date End Date Asad Victor MD [address] [place] [address] PCP - General 10/07/22 documented as of this encounter
--- OUTSIDE RECORDS SUMMARY | 2024-10-17 08:00 | XMS_ITS | Encounter Summary ---
Author Organization [facility] Address [address] [place] [address] Care Team Providers Care Drywall Worker Name Role Phone Asad Victor MD Primary Care Provider + [phone] Reason for Visit * Auth/Cert (Routine) Specialty Diagnoses / Procedures Referred By Contac t Referred To Contact Diagnoses Critical limb ischemia of left lower extremity Critical limb ischemia of left lower extremity [I70.222] Procedures MA VEIN BYPASS GRAFT,FEM-POP CREATION, BYPASS, ARTERIAL, FEMORAL TO POPLITEAL Terrell Gautam MD [address] [address] Phone: tel: fax: [facility] [address] [place] [address] Phone: tel: Referral ID Status Reason Start Date Expiration Date Visits Re quested Visits Authorized [id number] 1 1 Encounter Details Date Type Department Care Team (Late st Contact Info) Description 10/17/2024 8:00 AM EDT - 10/17/2024 2:50 PM EDT Surgery [facility] [address] [place] [address] Terrell Gautam MD [address] [address] CREATION, BYPASS, ARTERIAL, FEMORAL TO POPLITEAL [34589 (CPT )] Surgery Details Date/Time Status Location [...] any time in the past 12 m [facility], were you homeless or living in a [...] drink first t dino in the morning (EYE-TRANSPORTATION SERVICES REPRESENTATIVE) to steady your nerves or to get rid of a hangover? 0 10/18/2021 CAGE Questionnaire Score 0 022 Utilities Answer Date Recorded In the past 12 months has th e [employer], gas, oil, or water [employer] threatened to shut off services in your [...] provided Taken 10/17/20242107 by Jourdan Grimes II, economic development coordinator Review/Management: medications reviewed Problem: Skin Injury Risk [...] Ongoing, Progressing Intervention: Promote Activity and Functional [place] Flowsheets (Taken 10/19/2024 1048) Self-Care Promotion: BADL personal objects within reach meal set-up provided * Yuni Ramires - Keyla Chow - 10/19/2024 11:45 AM EDT Images from the original note were not included. [id number] After Peripheral Artery Bypass Surgery: In the [...] home. Last Reviewed Date: 2023 00:00:00 ?? [id number] [employer]. All rights reserved. This information is not intended as a substitute for professional medical care. Always follow your healthcare professional's instructions. * Progress Notes - Emelina Friend - 10/19/2024 11:44 AM EDT Case Management Adult Progress Note Bev Bobby 64 y.o. male CSN: [id number] Admission: 10/17/2024 6:21 AM Primary Problem: Critical [...] if any other needs arise. Emelina Friend CRIMINAL INTELLIGENCE ANALYST, POSTAL SERVICE WINDOW CLERK Social Work Case Management * Yuni Ramires - Keyla Chow - 10/19/2024 11:44 AM EDT Images from the original note were not included. [id number] Peripheral Artery Disease (PAD) Peripheral artery disease [...] cause. Last Reviewed Date: 2024 00:00:00 ?? [id number] [employer]. All rights reserved. This information is not intended as a substitute for professional medical care. Always follow your healthcare professional's instructions. * Yuni Ramires - Keyla Chow - 10/19/2024 11:44 AM EDT Images from the original note were not included. [id number] Leg Artery Emergencies: Critical Limb Ischemia (CLI) [...] appointments. Last Reviewed Date: 2023 00:00:00 ?? [id number] [employer]. All rights reserved. This information is not intended as a substitute for professional medical care. Always follow your healthcare professional's instructions. * Discharge Summary - Dandy Baltazar MD - 10/19/2024 11:31 AM EDT Hospitalization Admit Date/Time: 10/17/2024 6:21 AM Admitting Attending: Terrell Gautam Discharge Date: 10/19/24 Discharge Attending Physician: Nirmal Cueto MD PCP name and Address: Asad Victor MD (Inactive) [address] [facility] [address] Referring provider name and address: Timothy Marques PA [address] [place] [address] Chief Concern, Brief History of Present Illness, and Hospital Course Bev Bobby is an 64 y.o. 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 He [...] Medications These medications were sent to [facility] [place], [place] - [address] [facility]. [address] [facility]., [facility] [address] acetaminophen 500 MG tablet clopidogrel 75 MG [...] of water. 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 He [...] provided Taken 10/17/20242107 by Jourdan Grimes II economic development coordinator Review/Management: medications reviewed Problem: Skin Injury Risk [...] Ongoing, Progressing Intervention: Promote Activity and Functional [place] Flowsheets (Taken 10/19/2024 1048) Self-Care Promotion: BADL [...] evaluation. PARTICIPANTS IN CARE Visitors Present No Returning Officer (if applicable) PRESENTATION Oxygen Oxygen Therapy: None [...] Level of Mobility Ambulatory- household only Mobility [place] Independent gait with device (rollator) History of [...] numbness in rodney) BED MOBILITY Level of [place] Physical/Non- physical Assist Adaptive Equipment Utilized Rolling/ Turning Scooting/ Bridging Modified independence (anteriorly to EOB) Bed rails Supine to Sit Modified [place] (to the right) (HOB flat) Bed rails Sit to Supine Interventions HOB flat to simulate home environment TRANSFERS Level of [place] Physical/Non- physical Assist Adaptive Equipment Utilized Sit [...] stable surfaces during transitions. AMBULATION Level of [place] Distance Adaptive Equipment Utilized Ambulation Standby assist, [...] Posture: Forward head, Rounded shoulders Level of [place] Balance Support Interventions Static Sit Independent Right [...] Standardized Assessments: AMPA 6-Clicks Mobility Assessment [facility] 6-Clicks Mobility Assessment Difficulty patient has [...] steps with a railing?: A little [facility] 6-Clicks Mobility Assessment Total : 22 [...] evaluation/session. Participants in Care Family/Caregiver Present: No Returning Officer: Not Applicable Presentation Oxygen Therapy: None (Room [...] Level of Mobility: Ambulatory- household only Mobility [place]: Independent gait with device (rollator) History of [...] Mobility Bed Mobility Exam: Scooting/Bridging Level of [place]: Modified independence (anteriorly to EOB) Assistive Device: Bed rails Bed Mobility Exam: Supine to Sit Level of [place]: Modified [place] (to the right) Physical/Nonphysical Assist: (HOB flat) Assistive Device: Bed rails Transfers Transfer Exam: Sit to stand Level of [place]: Stand-by assist Physical/Nonphysical Assist: Supervision, Verbal Cues, Minimal cues Assistive Device: Walker, rolling Transfer Exam: Stand to Sit Level of [place]: Stand-by assist Physical/Nonphysical Assist: Supervision, Verbal Cues, [...] Standardized Assessments [facility] 6-Click Daily Activities Help from Other: Don/Doff Regular Lower Body Clothings: None Help From Other: Bathing: Little Help From Other: Toileting: None Help From Other: Don/Doff Upper Body Clothings: None Help From Other: Grooming: None Help From Other: Eating Meals: None [facility] 6 Click - Daily Activities Score: 23/24 [facility] Scoring Interpretation: Scores greater than 20.5 [...] Note Bev Bobby 64 y.o. male CSN: [id number] Admission: 10/17/2024 6:21 AM Primary Problem: Critical limb ischemia of left lower extremity Communications Media Professor reviewed chart and spoke with patient to complete this Initial Case Management Assessment. PCP: Asad Victor MD (Inactive) - Dr. Palomo Preferred pharmacy is [facility] Emergency Contact: Extended Emergency Contact Information Primary Emergency Contact: Patti Hill Relation: Sister Returning Officer needed? No Insurance: Primary Visit Coverage Payer Plan Sponsor Code Group Number Group Name [facility] MEDICARE [facility] MEDICARE REPLACEMENT [id number] Primary Visit Coverage Subscriber Subscriber ID Subscriber Name Subscriber [facility] Subscriber Address [id number] BEV BOBBY [id number] [place] [address] Secondary Visit Coverage Payer Plan Sponsor Code Group Number Group Name [employer] [facility] Secondary Visit Coverage Subscriber Subscriber ID Subscriber Name Subscriber [facility] Subscriber Address [id number] BEV BOBBY [id number] [place] [address] Patient information: Primary Caregiver: Self Daily Living Activities: Functional Status: Independent Living Arrangements: Alone Type of Residence: Private residence, Single Level [address] [place] [address] Current DME: Equipment Currently Used at Home: joy monterroso Income Information: Income Source: Retired Income/Expense Information: Income meets expenses Current Resources Utilized: Food [place] Housing Circumstances-Z Codes: Housing Circumstances (select all [...] Dialysis Services: None. Living Will/Advance Directive/Power of Government Operations Consultant /Guardian: Denied. Additional Comments: Patient is not medically ready for discharge. SW will continue to follow. Mariia Monterroso POSTAL SERVICE WINDOW CLERK * Care Plan - Emilia Alonso [...] the original note were not included. [facility] Department of Surgery Division of [...] Prevention: activity supervised assistive device/personal items within [facility] fall prevention program maintained lighting [...] Agree with above assessment and evaluation from resident/AEROPLANE PILOT. * Op Note - Terrell Gautam MD - 10/17/2024 8:52 AM EDT Operative Note Date: 10/17/24 Location: [facility] Name: Bev Bobby, : 1960, Diagnoses: Pre-op Diagnosis Critical limb ischemia of left lower extremity Common femoral artery pseudoaneurysm Post-op Diagnosis Critical limb ischemia of left lower extremity Common femoral artery pseudoaneurysm Procedure(s): Left common/superficial/profunda femoral thromboendarterectomy with bovine patch repair Left external iliac artery/ARMHOLE PRESSER stent Attending Surgeon(s): * Terrell Gautam - Primary Ethologist(s): * Luna Beckett MD - Resident - [...] Reasons Recent surgery contiguous with urinary tract/HOME MANAGEMENT SUPERVISOR/colorectal 10/17/24 190 Output (mL) 50 mL 10/18/24 08 Implants Type Name Action Serial No. VASCUGUARD 8 X 8 - [id number] Implanted STENT ENDOPROSTHESIS VIABAHN 9FR [id number] - [id number] Implanted [id number] Specimen: Specimens ID Source Frozen? 1 Other [...] and distal control. We then proceeded with erhou-dhw-eysr exposure of the popliteal artery. A medial [...] balloon dilated thestent with a 9 mm Ethel. We closed the arteriotomy with a single [...] 10/17/2024 8:52 AM EDT Date: 10/17/24 Location: [facility] Name: Bev Bobby, : 1960, Diagnoses: Pre-op Diagnosis Critical limb ischemia of left lower extremity Common femoral artery pseudoaneurysm Post-op Diagnosis Critical limb ischemia of left lower extremity Common femoral artery pseudoaneurysm Procedure(s): Left common/superficial/profunda femoral thromboendarterectomy with bovine patch repair Left external iliac artery/ARMHOLE PRESSER stent Attending Surgeon(s): * Terrell Gautam - Primary Ethologist(s): * Luna Beckett MD - Resident - Assisting * Dandy Baltazar MD - Fellow Anesthesia: General ASA: III Blood Administration: Blood Product Administration History None Estimated Blood Loss: 300 mL Drains: Urethral Catheter Temperature probe 16 Fr. (Active) Implants Type Name Action Serial No. VASCUGUARD 8 X 8 - [id number] Implanted STENT ENDOPROSTHESIS VIABAHN 9FR [id number] - [id number] Implanted [id number] Specimen: Specimens ID Source Frozen? 1 Other [...] issues. 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 He previouslyunderwent thrombin injection. He reports pain in his calves. He presents today for scheduled left lower extremity femoral to qqosm-taj-ydke popliteal bypass. Planned likely use PTFE. He [...] 16. Results Review {Vanishing Link Review Results :[id number] I have reviewed the latest lab and imaging results. Assessment & Plan Critical limb ischemia of left lower extremity Proceed with scheduled surgery left lower extremity femoral to geyqs-vzk-xmtn popliteal artery bypass graft. Extensive discussion had [...] Info) Description 11/26/2024 2:00 PM EDT Appointment [facility] [address] [place] [address] 11/26/2024 2:30 PM EDT Appointment [facility] [address] [place] [address] 11/26/2024 3:20 PM EDT Office Visit [facility] [address] [place] [address] Elisabet Schuster, GLENDA [address] [facility] [address] [place] [address] 11/29/2024 2:30 PM EDT Office Visit [facility] [address] [place] [address] Oscar Appiah MD [facility] [address] [place] [address] Pending Results Name Type Priority Associated Diagnoses [...] PREPARE RBC STAT 10/17/2024 8:06 AM EDT MA VEIN BYPASS GRAFT,FEM-POP 10/17/2024 7:38 AM EDT Critical limb ischemia of left lower extremity TYPE AND SCREEN Routine 10/17/2024 7:19 AM EDT POCT GLUCOSE METER UNSOLICITED RESULTS Routine 10/17/2024 6:44 AM EDT documented in this encounter Results * (ABNORMAL) POCT glucose meter (10/19/2024 11:40 AM EDT) Pathologist [facility] POCT Glucose 207(H) 74 - 99 mg/dL [...] Comment 10/19/2024 11:42 AM EDT HEALTHCARE LAB Blackener ID KmaranJob 10/20/19 11:42 AM EDT HEALTHCARE LAB Device ID [id number] 10/19/2024 11:42 AM EDT HEALTHCARE LAB Specimen Type POC Capillary 10/19/2024 11:42 AM EDT [facility] Blood Capillary blood specimen / Unknown 10/19/2024 11:40 AM EDT 10/19/2024 11:42 AM EDT us Terrell Gautam MD LAB POINT OF CARE TE ST DOCKED DEVICE UNSOLICITED RESULTS Final Result Performing Organization Address City/State/[facility] Co de Phone Number HEALTHCARE LAB [address] [place] [address] * (ABNORMAL) Protime-INR (10/19/2024 8:25 AM EDT) [facility] Prothrombin Time 17.5(H) 12.0 - 14.3 sec LAB COAGULATION METHOD 10/19/2024 9:25 AM EDT [facility] INR 1.4(H) 0.9 - 1.1 LAB COAGULATION METHOD 10/19/2024 9:25 AM EDT [facility] Blood Venous blood specimen / Unknown Venipuncture / Unknown 10/19/2024 8:25 AM EDT 10/19/2024 8:43 AM EDT Narrative [facility] - 10/19/2024 9:25 AM EDT OPTIMAL INR RANGES FOR PATIENT ON ORAL ANTICOAGULANT THERAPY Prevention of venous thromboembolism INR 2.0 to 3.0 In patients with heart disease: Atrial fibrillation INR 2.0 to 3.0 Valvular heart disease INR 2.0 to 3.0 Tissue heart valves INR 2.0 to 3.0 Mechanical prosthetic valves INR 2.5 to 3.5 Prevention of recurrent DC INR 2.5 to 3.5 us Nirmal Cueto MD LAB BLOOD ORDERABLES Final Result Performing Organization Address [facility]/ZIP Co de Phone Number [facility] [address] [place] [address] * (ABNORMAL) Phosphorus (10/19/2024 8:25 AM EDT) Phosphorus, Plasma 2.2(L) 2.5 - 4.5 mg/dL 10/19/2024 9:12 AM EDT [facility] Blood Venous blood specimen / Unknown Venipuncture / Unknown 10/19/2024 8:25 AM EDT 10/19/2024 8:43 AM EDT us Nirmal Cueto MD LAB BLOOD ORDERABLES Final Result Performing Organization Address [facility] Co de Phone Number [facility] [address] [place] [address] * Magnesium (10/19/2024 8:25 AM EDT) Magnesium, Plasma 2.1 1.9 - 2.4 mg/dL 10/19/2024 9:12 AM EDT [facility] Blood Venous blood specimen / Unknown Venipuncture / Unknown 10/19/2024 8:25 AM EDT 10/19/2024 8:43 AM EDT Nirmal Cueto MD LAB BLOOD ORDERABLES Final Result Performing Organization Address [facility]/ZIP Co de Phone Number [facility] [address] [place] [address] * (ABNORMAL) Basic metabolic panel (10/19/2024 8:25 AM EDT) Glucose, Plasma 191(H) 74 - 99 mg/dL 10/19/2024 9:12 AM EDT [facility] BUN, Plasma 18 8 - 23 mg/dL 10/19/2024 9:12 AM EDT [facility] Creatinine, Plasma 0.76 0.70 - 1.20 mg/dL 10/19/2024 9:12 AM EDT [facility] BUN/Creatinine Ratio 24 10/19/2024 9:12 AM EDT [facility] Sodium, Plasma 135(L) 136 - 145 mmol/L 10/19/2024 9:12 AM EDT [facility] Potassium, Plasma 4.1 3.6 - 4.9 mmol/L 10/19/2024 9:12 AM EDT [facility] Chloride, Plasma 104 97 - 107 mmol/L 10/19/2024 9:12 AM EDT [facility] CO2, Plasma 22 22 - 29 mmol/L 10/19/2024 9:12 AM EDT [facility] Anion Gap 9 6 - 16 mmol/L 10/19/2024 9:12 AM EDT [facility] Total Calcium, Plasma 8.4(L) 8.9 - 10.2 mg/dL 10/19/2024 9:12 AM EDT [facility] eGFRcr 99.7 mL/min/1.7 3m*2 10/19/2024 9:12 AM EDT [facility] Comment:Reported eGFRcr in m L/min/1.73m2 is based the CKD-EPI 2020 equation that does not use a race coefficient. Blood Venous blood specimen / Unknown Venipuncture / Unknown 10/19/2024 8:25 AM EDT 10/19/2024 8:43 AM EDT us Nirmal Cueto MD LAB BLOOD ORDERABLES Final Result [facility] [address] [place] [address] * (ABNORMAL) CBC W/O Differential (10/19/2024 8:25 AM EDT) WBC Count 14.10(H) 3.70 - 10.30 10*3/uL LAB HEMATOLOGY METHOD 10/19/2024 8:52 AM EDT [facility] RBC Count 2.61(L) 4.60 - 6.10 10*6/uL LAB HEMATOLOGY METHOD 10/19/2024 8:52 AM EDT [facility] HGB 8.0(L) 13.7 - 17.5 g/dL LAB HEMATOLOGY METHOD 10/19/2024 8:52 AM EDT [facility] HCT 24.3(L) 40.0 - 51.0 % LAB HEMATOLOGY METHOD 10/19/2024 8:52 AM EDT [facility] Platelet Count 318 155 - 369 10*3/uL LAB HEMATOLOGY METHOD 10/19/2024 8:52 AM EDT [facility] MCV 93 79 - 98 fL LAB HEMATOLOGY METHOD 10/19/2024 8:52 AM EDT [facility] MCH 30.7 26.0 - 32.0 pg LAB HEMATOLOGY METHOD 10/19/2024 8:52 AM EDT [facility] MCHC 32.9 30.7 - 35.5 g/dL LAB HEMATOLOGY METHOD 10/19/2024 8:52 AM EDT [facility] RDW 13.4 11.5 - 14.5 % LAB HEMATOLOGY METHOD 10/19/2024 8:52 AM EDT [facility] MPV 9.6 8.8 - 12.5 fL LAB HEMATOLOGY METHOD 10/19/2024 8:52 AM EDT [facility] nRBC 0.0 <=0.0 per 100 WBCs LAB HEMATOLOGY METHOD 10/19/2024 8:52 AM EDT [facility] Blood Venous blood specimen / Unknown Venipuncture / Unknown 10/19/2024 8:25 AM EDT 10/19/2024 8:44 AM EDT us Nirmal Cueto MD LAB BLOOD ORDERABLES Final Result [facility] [address] [place] [address] * (ABNORMAL) POCT glucose meter (10/19/2024 7:35 AM EDT) [facility] POCT Glucose 187(H) 74 - 99 mg/dL [...] Comment 10/19/2024 7:37 AM EDT HEALTHCARE LAB Blackener ID Job Andrew 10/20/19 7:37 AM EDT HEALTHCARE LAB Device ID [id number] 10/19/2024 7:37 AM EDT HEALTHCARE LAB Specimen Type POC Capillary 10/19/2024 7:37 AM EDT HEALTHCARE LAB Blood Capillary blood specimen / Unknown 10/19/2024 7:35 AM EDT 10/19/2024 7:37 AM EDT us Terrell Gautam MD LAB POINT OF CARE TE ST DOCKED DEVICE UNSOLICITED RESULTS Final Result Performing Organization Address City/State/[facility] Co de Phone Number HEALTHCARE LAB [address] [place] [address] * (ABNORMAL) POCT glucose meter (10/18/2024 7:22 PM EDT) [facility] POCT Glucose 178(H) 74 - 99 mg/dL [...] Comment 10/18/2024 7:24 PM EDT HEALTHCARE LAB Blackener ID Mahesh Aldana 10/18/2024 7:24 PM EDT HEALTHCARE LAB Device ID [id number] 10/18/2024 7:24 PM EDT HEALTHCARE LAB Specimen Type POC Capillary 10/18/2024 7:24 PM EDT HEALTHCARE LAB Blood Capillary blood specimen / Unknown 10/18/2024 7:22 PM EDT 10/18/2024 7:24 PM EDT us Terrell Gautam MD LAB POINT OF CARE TE ST DOCKED DEVICE UNSOLICITED RESULTS Final Result Performing Organization Address [facility] Co de Phone Number HEALTHCARE LAB [address] [place] [address] * (ABNORMAL) POCT glucose meter (10/18/2024 6:07 PM EDT) Pathologist [facility] POCT Glucose 167(H) 74 - 99 mg/dL [...] Comment 10/18/2024 6:09 PM EDT HEALTHCARE LAB Blackener ID David Parks 10/18/2024 6:09 PM EDT HEALTHCARE LAB Device ID [id number] 10/18/2024 6:09 PM EDT HEALTHCARE LAB Specimen Type POC Capillary 10/18/2024 6:09 PM EDT [facility] Blood Capillary blood specimen / Unknown 10/18/2024 6:07 PM EDT 10/18/2024 6:09 PM EDT Terrell Gautam MD LAB POINT OF CARE TE ST DOCKED DEVICE UNSOLICITED RESULTS Final Result Performing Organization Address City/[facility] Co de Phone Number [facility] [address] [place] [address] * (ABNORMAL) POCT glucose meter (10/18/2024 11:56 AM EDT) Pathologist [facility] POCT Glucose 233(H) 74 - 99 mg/dL [...] 10/21/2024 7:42 AM EDT [facility] Blackener ID Venessa Marcano 10/21/2024 7:42 AM EDT HEALTHCARE LAB Device ID [id number] 10/21/2024 7:42 AM EDT HEALTHCARE LAB Specimen Type POC Capillary 10/21/2024 7:42 AM EDT HEALTHCARE LAB Blood Capillary blood specimen / Unknown 10/18/2024 11:56 AM EDT 10/21/2024 7:42 AM EDT us Terrell Gautam MD LAB POINT OF CARE TE ST DOCKED DEVICE UNSOLICITED RESULTS Final Result Performing Organization Address City/[facility] Co de Phone Number [facility] [address] [place] [address] * (ABNORMAL) POCT glucose meter (10/18/2024 9:24 AM EDT) [facility] POCT Glucose 322(H) 74 - 99 mg/dL [...] Comment 10/21/2024 7:42 AM EDT HEALTHCARE LAB Blackener ID Emilia Alonso 7:42 AM EDT HEALTHCARE LAB Device ID [id number] 10/21/2024 7:42 AM EDT HEALTHCARE LAB Specimen Type POC Venous 10/21/2024 7:42 AM EDT HEALTHCARE LAB Blood Venous blood specimen / Unknown 10/18/2024 9:24 AM EDT 10/21/2024 7:42 AM EDT us Terrell Gautam MD LAB POINT OF CARE TE ST DOCKED DEVICE UNSOLICITED RESULTS Final Result Performing Organization Address City/[facility] Co de Phone Number [facility] [address] [place] [address] * (ABNORMAL) POCT glucose meter (10/18/2024 7:36 AM EDT) Pathologist [facility] POCT Glucose 215(H) 74 - [...] Comment 10/18/2024 7:38 AM EDT HEALTHCARE LAB Blackener ID Kizzy Godfrey 025 7:38 AM EDT HEALTHCARE LAB Device ID [id number] 10/18/2024 7:38 AM EDT [facility] Specimen Type POC Capillary 10/18/2024 7:38 AM EDT [facility] Blood Capillary blood specimen / Unknown 10/18/2024 7:36 AM EDT 10/18/2024 7:38 AM EDT us Terrell Gautam MD LAB POINT OF CARE TE ST DOCKED DEVICE UNSOLICITED RESULTS Final Result [facility]ALTH[facility]ARE LAB [address] [place] [address] * (ABNORMAL) CBC (10/18/2024 2:09 AM EDT) [facility] WBC Count 16.71(H) 3.70 - 10.30 10*3/uL LAB HEMATOLOGY METHOD 10/18/2024 2:33 AM EDT [facility] [facility] RBC Count 2.78(L) 4.60 - 6.10 10*6/uL LAB HEMATOLOGY METHOD 10/18/2024 2:33 AM EDT [facility] HGB 8.5(L) 13.7 - 17.5 g/dL LAB HEMATOLOGY METHOD 10/18/2024 2:33 AM EDT [facility] HCT 25.7(L) 40.0 - 51.0 % LAB HEMATOLOGY METHOD 10/18/2024 2:33 AM EDT [facility] Platelet Count 324 155 - 369 10*3/uL LAB HEMATOLOGY METHOD 10/18/2024 2:33 AM EDT [facility] MCV 92 79 - 98 fL LAB HEMATOLOGY METHOD 10/18/2024 2:33 AM EDT [facility] MCH 30.6 26.0 - 32.0 pg LAB HEMATOLOGY METHOD 10/18/2024 2:33 AM EDT [facility] MCHC 33.1 30.7 - 35.5 g/dL LAB HEMATOLOGY METHOD 10/18/2024 2:33 AM EDT [facility] RDW 13.3 11.5 - 14.5 % LAB HEMATOLOGY METHOD 10/18/2024 2:33 AM EDT [facility] MPV 9.4 8.8 - 12.5 fL LAB HEMATOLOGY METHOD 10/18/2024 2:33 AM EDT [facility] nRBC 0.0 <=0.0 per 100 WBCs LAB HEMATOLOGY METHOD 10/18/2024 2:33 AM EDT [facility] Blood Venous blood specimen / Unknown Venipuncture / Unknown 10/18/2024 2:09 AM EDT 10/18/2024 2:25 AM EDT Nirmal Cueto MD LAB BLOOD ORDERABLES Final Result [facility] [address] [place] [address] * (ABNORMAL) Basic metabolic panel (10/18/2024 2:09 AM EDT) Glucose, Plasma 206(H) 74 - 99 mg/dL 10/18/2024 2:53 AM EDT [facility] BUN, Plasma 24(H) 8 - 23 mg/dL 10/18/2024 2:53 AM EDT [facility] Creatinine, Plasma 1.17 0.70 - 1.20 mg/dL 10/18/2024 2:53 AM EDT [facility] BUN/Creatinine Ratio 21 10/18/2024 2:53 AM EDT [facility] Sodium, Plasma 136 136 - 145 mmol/L 10/18/2024 2:53 AM EDT [facility] Potassium, Plasma 4.8 3.6 - 4.9 mmol/L 10/18/2024 2:53 AM EDT [facility] Chloride, Plasma 104 97 - 107 mmol/L 10/18/2024 2:53 AM EDT [facility] CO2, Plasma 22 22 - 29 mmol/L 10/18/2024 2:53 AM EDT [facility] Anion Gap 10 6 - 16 mmol/L 10/18/2024 2:53 AM EDT [facility] Total Calcium, Plasma 8.5(L) 8.9 - 10.2 mg/dL 10/18/2024 2:53 AM EDT [facility] eGFRcr 69.2 mL/min/1.7 3m*2 10/18/2024 2:53 AM EDT [facility] Comment:Reported eGFRcr in m L/min/1.73m2 is based the CKD-EPI 2020 equation that does not use a race coefficient. Blood Venous blood specimen / Unknown Venipuncture / Unknown 10/18/2024 2:09 AM EDT 10/18/2024 2:25 AM EDT Nirmal Cueto MD LAB BLOOD ORDERABLES Final Result Performing Organization Address City/[facility]/ZIP Co de Phone Number [facility] [address] [place] [address] * (ABNORMAL) Magnesium (10/18/2024 2:09 AM EDT) Magnesium, Plasma 1.8(L) 1.9 - 2.4 mg/dL 10/18/2024 2:53 AM EDT [facility] Blood Venous blood specimen / Unknown Venipuncture / Unknown 10/18/2024 2:09 AM EDT 10/18/2024 2:25 AM EDT Nirmal Cueto MD LAB BLOOD ORDERABLES Final Result [facility] [address] [place] [address] * Phosphorus (10/18/2024 2:09 AM EDT) Phosphorus, Plasma 3.7 2.5 - 4.5 mg/dL 10/18/2024 2:53 AM EDT [facility] Blood Venous blood specimen / Unknown Venipuncture / Unknown 10/18/2024 2:09 AM EDT 10/18/2024 2:25 AM EDT Nirmal Cueto MD LAB BLOOD ORDERABLES Final Result Performing Organization Address [facility] Co de Phone Number [facility] [address] [place] [address] * (ABNORMAL) Protime-INR (10/18/2024 2:09 AM EDT) Prothrombin Time 14.5(H) 12.0 - 14.3 sec LAB COAGULATION METHOD 10/18/2024 2:53 AM EDT [facility] INR 1.1 0.9 - 1.1 LAB COAGULATION METHOD 10/18/2024 2:53 AM EDT [facility] Blood Venous blood specimen / Unknown Venipuncture / Unknown 10/18/2024 2:09 AM EDT 10/18/2024 2:25 AM EDT Narrative [facility] - 10/18/2024 2:53 AM EDT OPTIMAL INR RANGES FOR PATIENT ON ORAL ANTICOAGULANT THERAPY Prevention of venous thromboembolism INR 2.0 to 3.0 In patients with heart disease: Atrial fibrillation INR 2.0 to 3.0 Valvular heart disease INR 2.0 to 3.0 Tissue heart valves INR 2.0 to 3.0 Mechanical prosthetic valves INR 2.5 to 3.5 Prevention of recurrent DC INR 2.5 to 3.5 Result [facility] Nirmal Cueto MD LAB BLOOD ORDERABLES Final Result Performing Organization Address [facility] Co de Phone Number [facility] [address] [place] [address] * (ABNORMAL) POCT glucose meter (10/18/2024 2:08 AM EDT) POCT Glucose 202(H) 74 - 99 mg/dL 10/18/2024 2:10 AM EDT [facility] Comment:Accuracy of a glucos [...] Comment 10/18/2024 2:10 AM EDT [facility] Blackener ID Jourdan Grimes II 10/18/2024 2:10 AM EDT [facility] LAB Device ID [id number] 10/18/2024 2:10 AM EDT [facility] Specimen Type POC Capillary 10/18/2024 2:10 AM EDT [facility] Blood Capillary blood specimen / Unknown 10/18/2024 2:08 AM EDT 10/18/2024 2:10 AM EDT us Terrell Gautam MD LAB POINT OF CARE TE ST DOCKED DEVICE UNSOLICITED RESULTS Final Result Performing Organization Address City/State/[facility] de Phone Number [facility]ALTHCARE LAB [address] [place] [address] * (ABNORMAL) POCT glucose meter (10/17/2024 10:07 PM EDT) [facility] POCT Glucose 300(H) 74 - 99 mg/dL [...] Comment 10/17/2024 10:10 PM EDT [facility] Blackener ID Jourdan Grimes II 10/17/2024 10:10 PM EDT [facility] LAB Device ID [id number] 10/17/2024 10:10 PM EDT [facility] LAB Specimen Type POC Capillary 10/17/2024 10:10 PM EDT [facility] Blood Capillary blood specimen / Unknown 10/17/2024 10:07 PM EDT 10/17/2024 10:10 PM EDT us Terrell Gautam MD LAB POINT OF CARE TE ST DOCKED DEVICE UNSOLICITED RESULTS Final Result [facility] [address] [place] [address] * (ABNORMAL) POCT glucose meter (10/17/2024 8:07 PM EDT) [facility] POCT Glucose 391(H) 74 - 99 mg/dL [...] 10/17/2024 8:10 PM EDT [facility] Blackener ID Cornelio WALTERS Jourdan 10/17/2024 8:10 PM EDT [facility] Device ID [id number] 10/17/2024 8:10 PM EDT [facility] Specimen Type POC Capillary 10/17/2024 8:10 PM EDT [facility] Blood Capillary blood specimen / Unknown 10/17/2024 8:07 PM EDT 10/17/2024 8:10 PM EDT Terrell Gautam MD LAB POINT OF CARE TE ST DOCKED DEVICE UNSOLICITED RESULTS Final Result Performing Organization Address [facility] Co de Phone Number [facility] [address] [place] [address] * (ABNORMAL) POCT glucose meter (10/17/2024 4:01 PM EDT) [facility] POCT Glucose 249(H) 74 - 99 mg/dL [...] 10/17/2024 4:03 PM EDT [facility] Blackener ID ChelsieKeisha patel 10/17/2024 4:03 PM EDT [facility] Device ID [id number] 10/17/2024 4:03 PM EDT [facility] Specimen Type POC Capillary 10/17/2024 4:03 PM EDT [facility] Blood Capillary blood specimen / Unknown 10/17/2024 4:01 PM EDT 10/17/2024 4:03 PM EDT us Terrell Gautam MD LAB POINT OF CARE TE ST DOCKED DEVICE UNSOLICITED RESULTS Final Result Performing Organization Address [facility] Co de Phone Number [facility] [address] [place] [address] * (ABNORMAL) POCT glucose meter (10/17/2024 1:25 PM EDT) [facility] Signature POCT Glucose 225(H) 74 [...] 10/17/2024 1:27 PM EDT [facility] Blackener ID Kizzy Godfrey 025 1:27 PM EDT [facility] Device ID [id number] 10/17/2024 1:27 PM EDT [facility] LAB Specimen Type POC Capillary 10/17/2024 1:27 PM EDT [facility] Blood Capillary blood specimen / Unknown 10/17/2024 1:25 PM EDT 10/17/2024 1:27 PM EDT us Terrell Gautam MD LAB POINT OF CARE TE ST DOCKED DEVICE UNSOLICITED RESULTS Final Result Performing Organization Address City/[facility] Co de Phone Number [facility] [address] [place] [address] * [place] Less than 1 Hour Intraoperative [...] Seconds 10/29/2024 7:28 AM EDT [facility] Blackener ID Donna Mcmillan 10/29/2024 7:28 AM EDT [facility] ACT Device ID [id number] 10/29/2024 7:28 AM EDT [facility] Comment 10/29/2024 7:28 AM EDT [facility] Comment: ACT performed by [...] Final Result Performing Organization Address [facility] de Phone Number [facility] [address] LAB [address] [place] [address] * (ABNORMAL) Blood gas, arterial (10/17/2024 11:48 AM EDT) pH, Arterial 7.34 7.31 - 7.42 LAB HEMATOLOGY METHOD 10/17/2024 11:54 AM EDT [facility] pCO2, Arterial 41 32 - 45 mmHg LAB HEMATOLOGY METHOD 10/17/2024 11:54 AM EDT [facility] pO2, Arterial 202 >80 mmHg LAB HEMATOLOGY METHOD 10/17/2024 11:54 AM EDT [facility] SO2, Measured, Arterial 100(H) 94 - 98 % LAB HEMATOLOGY METHOD 10/17/2024 11:54 AM EDT [facility] Base Excess, Arterial -3.2(L) -2.0 - 3.0 mmol/L LAB HEMATOLOGY METHOD 10/17/2024 11:54 AM EDT [facility] Bicarbonate, Calculated, Arterial 22 22 - 26 mmol/L LAB HEMATOLOGY METHOD 10/17/2024 11:54 AM EDT [facility] Hematocrit, Whole Blood 28.6(L) 40.0 - 51.0 % LAB HEMATOLOGY METHOD 10/17/2024 11:54 AM EDT [facility] Sodium, Whole Blood 137 136 - 145 mmol/L LAB HEMATOLOGY METHOD 10/17/2024 11:54 AM EDT [facility] Potassium, Whole Blood 4.5 3.6 - 4.9 mmol/L LAB HEMATOLOGY METHOD 10/17/2024 11:54 AM EDT [facility] Chloride, Whole Blood 112(H) 97 - 107 mmol/L LAB HEMATOLOGY METHOD 10/17/2024 11:54 AM EDT [facility] Glucose, Whole Blood 201(H) 74 - 99 mg/dL LAB HEMATOLOGY METHOD 10/17/2024 11:54 AM EDT [facility] Ionized Calcium, Whole Blood 4.8 4.6 - 5.1 mg/dL LAB HEMATOLOGY METHOD 10/17/2024 11:54 AM EDT [facility] Lactate, Arterial, Whole Blood 2.3(H) 0.5 - 1.6 mmol/L LAB HEMATOLOGY METHOD 10/17/2024 11:54 AM EDT [facility] Blood Arterial blood specimen / Unknown Arterial Puncture / Unknown 10/17/2024 11:48 AM EDT 10/17/2024 11:53 AM EDT us Jenna Lopez AEROPLANE PILOT LAB BLOOD ORDERABLES Final Re sult [facility] [address] [place] [address] * POCT ACT (10/17/2024 11:41 AM EDT) ACT+ (HIGH RANGE) 175 68 - 600 Seconds 10/29/2024 7:28 AM EDT [facility] Blackener ID Oneyda Alicea 10/29/2024 7:28 AM EDT [facility] ACT Device ID [id number] 10/29/2024 7:28 AM EDT [facility] Comment 10/29/2024 7:28 AM EDT [facility] Comment: ACT performed by staff [...] Result Performing Organization Address City/[facility] Co de Phone Number HEALTHCARE LAB [address] LAB [address] [place] [address] * POCT ACT (10/17/2024 11:11 AM EDT) [facility] Signature ACT+ (HIGH RANGE) 252 68 - 600 Seconds 10/29/2024 7:28 AM EDT [facility] Blackener ID Donna Mcmillan 10/29/2024 7:28 AM EDT [facility] ACT Device ID [id number] 10/29/2024 7:28 AM EDT [facility] Comment 10/29/2024 7:28 AM EDT [facility] Comment: ACT performed by staff [...] Result Performing Organization Address City/[facility]/ZIP Co de Phone Number [facility]ALTHCARE LAB [address] LAB [address] [place] [address] * (ABNORMAL) Blood gas, arterial (10/17/2024 10:46 AM EDT) pH, Arterial 7.35 7.31 - 7.42 LAB HEMATOLOGY METHOD 10/17/2024 10:56 AM EDT [facility] pCO2, Arterial 42 32 - 45 mmHg LAB HEMATOLOGY METHOD 10/17/2024 10:56 AM EDT [facility] pO2, Arterial 161 >80 mmHg LAB HEMATOLOGY METHOD 10/17/2024 10:56 AM EDT [facility] SO2, Measured, Arterial 100(H) 94 - 98 % LAB HEMATOLOGY METHOD 10/17/2024 10:56 AM EDT [facility] Base Excess, Arterial -2.2(L) -2.0 - 3.0 mmol/L LAB HEMATOLOGY METHOD 10/17/2024 10:56 AM EDT [facility] Bicarbonate, Calculated, Arterial 23 22 - 26 mmol/L LAB HEMATOLOGY METHOD 10/17/2024 10:56 AM EDT [facility] Hematocrit, Whole Blood 29.9(L) 40.0 - 51.0 % LAB HEMATOLOGY METHOD 10/17/2024 10:56 AM EDT [facility] Sodium, Whole Blood 138 136 - 145 mmol/L LAB HEMATOLOGY METHOD 10/17/2024 10:56 AM EDT [facility] Potassium, Whole Blood 4.0 3.6 - 4.9 mmol/L LAB HEMATOLOGY METHOD 10/17/2024 10:56 AM EDT [facility] Chloride, Whole Blood 110(H) 97 - 107 mmol/L LAB HEMATOLOGY METHOD 10/17/2024 10:56 AM EDT [facility] Glucose, Whole Blood 174(H) 74 - 99 mg/dL LAB HEMATOLOGY METHOD 10/17/2024 10:56 AM EDT [facility] Ionized Calcium, Whole Blood 5.1 4.6 - 5.1 mg/dL LAB HEMATOLOGY METHOD 10/17/2024 10:56 AM EDT [facility] Lactate, Arterial, Whole Blood 1.4 0.5 - 1.6 mmol/L LAB HEMATOLOGY METHOD 10/17/2024 10:56 AM EDT [facility] Blood Arterial blood specimen / Unknown Arterial Puncture / Unknown 10/17/2024 10:46 AM EDT 10/17/2024 10:54 AM EDT us eJnna Munira Lopez AEROPLANE PILOT LAB BLOOD ORDERABLES Final Re sult Performing Organization Address City/[facility]/ZIP Co de Phone Number [facility] [address] [place] [address] * POCT ACT (10/17/2024 10:37 AM EDT) ACT+ (HIGH RANGE) 206 68 - 600 Seconds 10/29/2024 7:28 AM EDT [facility]ALTHCARE LAB Blackener ID Donna Mcmillan 10/29/2024 7:28 AM EDT [facility] ACT Device ID [id number] 10/29/2024 7:28 AM EDT [facility] Comment 10/29/2024 7:28 AM EDT [facility] Comment: ACT performed by staff at [...] Result Performing Organization Address City/[facility] Co de Phone Number [facility] [address] [place] [address] * Surgical Pathology Exam (10/17/2024 10:27 AM EDT) Case Report Surgical Pathology Case: [id number] Authorizing Provider: Terrell Gautam MD Collected: 10/17/2024 1027 Ordering Location: [facility] A OPERATING ROOM Received: 10/17/2024 1325 Pathologist: Haydee Osborne MD Specimen: Other (specify site), left common femoral plaque 10/21/2024 10:16 AM EDT [facility] Final Diagnosis A. LEFT COMMON FEMORAL PLAQUE, EXCISION: - CALCIFIED PLAQUE 10/21/2024 10:16 AM EDT [facility] at 1016 EDT Clinical Information Critical limb ischemia of left lower extremity [I70.222] 10/21/2024 10:16 AM EDT [facility] Gross Description A. LEFT COMMON FEMORAL PLAQUE Received in formalin labeled l eft common femoral plaque , is one aggregate of red-gabriel hard portions of plaque measuring 3.7 x 2.5 x 0.9 cm. The specimen is serially sectioned and sales representative wire rope sections are submitted in cassette A1. Cold Time: <1m Kenia Dawit Yola 10/21/2024 10:16 AM EDT [facility] Note: A resident was involved in the service. I attest I examined the relevant preparations for the specimens and confirmed the diagnosis or interpretation. 10/21/2024 10:16 AM EDT [facility] Tissue Topography unknown / Unknown 10/17/2024 10:27 AM EDT 10/17/2024 1:25 PM EDT Comment:Pre-op diagnosis: Critical limb ischemia of left lower extremity [I70.222] us Terrell Gautam MD LAB PATHOLOGY ORDERABLES Gwen grimaldo Result [facility] [address] [place] [address] * POCT ACT (10/17/2024 10:03 AM EDT) ACT+ (HIGH RANGE) 244 68 - 600 Seconds 10/29/2024 7:28 AM EDT [facility] Blackener ID Donna Mcimllan 10/29/2024 7:28 AM EDT [facility] ACT Device ID [id number] 10/29/2024 7:28 AM EDT [facility] Comment 10/29/2024 7:28 AM EDT [facility] Comment: ACT performed by [...] DOCKED DEVICE UNSOLICITED RESULTS Final Result [facility] [address] LAB [address] [place] [address] * (ABNORMAL) Blood gas, arterial (10/17/2024 9:45 AM EDT) pH, Arterial 7.37 7.31 - 7.42 LAB HEMATOLOGY METHOD 10/17/2024 9:55 AM EDT [facility] pCO2, Arterial 43 32 - 45 mmHg LAB HEMATOLOGY METHOD 10/17/2024 9:55 AM EDT [facility] pO2, Arterial 177 >80 mmHg LAB HEMATOLOGY METHOD 10/17/2024 9:55 AM EDT [facility] SO2, Measured, Arterial 100(H) 94 - 98 % LAB HEMATOLOGY METHOD 10/17/2024 9:55 AM EDT [facility] Base Excess, Arterial -0.5 -2.0 - 3.0 mmol/L LAB HEMATOLOGY METHOD 10/17/2024 9:55 AM EDT [facility] Bicarbonate, Calculated, Arterial 25 22 - 26 mmol/L LAB HEMATOLOGY METHOD 10/17/2024 9:55 AM EDT [facility] Hematocrit, Whole Blood 30.0(L) 40.0 - 51.0 % LAB HEMATOLOGY METHOD 10/17/2024 9:55 AM EDT [facility] Sodium, Whole Blood 137 136 - 145 mmol/L LAB HEMATOLOGY METHOD 10/17/2024 9:55 AM EDT [facility] Potassium, Whole Blood 4.3 3.6 - 4.9 mmol/L LAB HEMATOLOGY METHOD 10/17/2024 9:55 AM EDT [facility] Chloride, Whole Blood 108(H) 97 - 107 mmol/L LAB HEMATOLOGY METHOD 10/17/2024 9:55 AM EDT [facility] Glucose, Whole Blood 191(H) 74 - 99 mg/dL LAB HEMATOLOGY METHOD 10/17/2024 9:55 AM EDT [facility] Ionized Calcium, Whole Blood 5.0 4.6 - 5.1 mg/dL LAB HEMATOLOGY METHOD 10/17/2024 9:55 AM EDT [facility] Lactate, Arterial, Whole Blood 1.3 0.5 - 1.6 mmol/L LAB HEMATOLOGY METHOD 10/17/2024 9:55 AM EDT [facility] Blood Arterial blood specimen / Unknown Arterial Line / Unknown 10/17/2024 9:45 AM EDT 10/17/2024 9:52 AM EDT us Jenna Lopez CRNA LAB BLOOD ORDERABLES Final Re sult [facility] [address] [place] [address] * (ABNORMAL) Blood gas, arterial (10/17/2024 8:47 AM EDT) pH, Arterial 7.37 7.31 - 7.42 LAB HEMATOLOGY METHOD 10/17/2024 8:59 AM EDT [facility] pCO2, Arterial 43 32 - 45 mmHg LAB HEMATOLOGY METHOD 10/17/2024 8:59 AM EDT [facility] pO2, Arterial 205 >80 mmHg LAB HEMATOLOGY METHOD 10/17/2024 8:59 AM EDT [facility] SO2, Measured, Arterial 100(H) 94 - 98 % LAB HEMATOLOGY METHOD 10/17/2024 8:59 AM EDT [facility] Base Excess, Arterial -0.3 -2.0 - 3.0 mmol/L LAB HEMATOLOGY METHOD 10/17/2024 8:59 AM EDT [facility] Bicarbonate, Calculated, Arterial 25 22 - 26 mmol/L LAB HEMATOLOGY METHOD 10/17/2024 8:59 AM EDT [facility] Hematocrit, Whole Blood 31.3(L) 40.0 - 51.0 % LAB HEMATOLOGY METHOD 10/17/2024 8:59 AM EDT [facility] Sodium, Whole Blood 138 136 - 145 mmol/L LAB HEMATOLOGY METHOD 10/17/2024 8:59 AM EDT [facility] Potassium, Whole Blood 4.0 3.6 - 4.9 mmol/L LAB HEMATOLOGY METHOD 10/17/2024 8:59 AM EDT [facility] Chloride, Whole Blood 108(H) 97 - 107 mmol/L LAB HEMATOLOGY METHOD 10/17/2024 8:59 AM EDT [facility] Glucose, Whole Blood 162(H) 74 - 99 mg/dL LAB HEMATOLOGY METHOD 10/17/2024 8:59 AM EDT [facility] Ionized Calcium, Whole Blood 5.2(H) 4.6 - 5.1 mg/dL LAB HEMATOLOGY METHOD 10/17/2024 8:59 AM EDT [facility] Lactate, Arterial, Whole Blood 1.7(H) 0.5 - 1.6 mmol/L LAB HEMATOLOGY METHOD 10/17/2024 8:59 AM EDT [facility] Blood Arterial blood specimen / Unknown Arterial Puncture / Unknown 10/17/2024 8:47 AM EDT 10/17/2024 8:58 AM EDT us Jenna Lopez CRNA LAB BLOOD ORDERABLES Final Re sult [facility] [address] [place] [address] * POCT ACT (10/17/2024 8:46 AM EDT) ACT+ (HIGH RANGE) 101 68 - 600 Seconds 10/29/2024 7:28 AM EDT [facility]ALTH[facility]ARE LAB Blackener ID Donna Mcmillan 10/29/2024 7:28 AM EDT HEALTHCARE LAB ACT Device ID [id number] 10/29/2024 7:28 AM EDT HEALTHCARE LAB Comment 10/29/2024 7:28 AM EDT [facility] Comment: ACT performed by [...] RESULTS Final Result [facility] [address] LAB [address] [place] [address] * Type and Screen (10/17/2024 7:19 AM [...] Final Result Performing Organization Address [facility] Co de Phone Number BLOOD BANK [address] [place] [address] * (ABNORMAL) POCT glucose meter (10/17/2024 6:44 AM EDT) [facility] POCT Glucose 178(H) 74 - 99 mg/dL [...] 10/17/2024 6:49 AM EDT [facility] Blackener ID Hunter Burroughs 10/18/19 6:49 AM EDT [facility] Device ID [id number] 10/17/2024 6:49 AM EDT HEALTHCARE LAB Specimen Type POC Capillary 10/17/2024 6:49 AM EDT [facility] Blood Capillary blood specimen / Unknown 10/17/2024 6:44 AM EDT 10/17/2024 6:49 AM EDT us Terrell Gautam MD LAB POINT OF CARE TE ST DOCKED DEVICE UNSOLICITED RESULTS Final Result [facility] [address] [place] [address] documented in this encounter Visit Diagnoses Diagnosis [...] Oral, Every 6 hours PRN, Starting on Yadiar 10/17/24 at 1308, Until 10/19/24 at 1439, Routine, Recovery(Phase II-Outpatient)/On Unit(Inpatient), nausea, vomiting documented in this encounter Additional Health Concerns Active Problems Noted Date Diagnosed Date Autogenerated Problem 09/23/2024 Assessment Noted Time A Body Mass Index follow-up plan has been documented for the patient 10/19/2024 11:46 AM EDT documented as of this encounter 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
--- OUTSIDE RECORDS SUMMARY | 2024-11-05 21:45 | XMS_ITS | Encounter Summary ---
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 [place] [address] * (ABNORMAL) POCT glucose meter (11/12/2024 8:27 [...] for testing. Comment 11/12/2024 8:29 PM EDT [facility] Whipper ID Nelda Gerber 11/13/19 8:29 PM EDT [facility] Device ID [id number] 11/12/2024 8:29 PM EDT [facility] Specimen Type POC Capillary 11/12/2024 8:29 PM EDT [facility] Blood Capillary blood specimen / Unknown 11/12/2024 8:27 PM EDT 11/12/2024 8:29 PM EDT Nathaly Nowak MD LAB POINT OF CARE TE ST DOCKED DEVICE UNSOLICITED RESULTS Final Result Performing Organization Address City/[facility] Co de Phone Number [facility] [address] [place] [address] * (ABNORMAL) POCT glucose meter (11/12/2024 5:08 [...] Comment 11/12/2024 5:10 PM EDT [facility] Whipper ID Wade Feliciano Tobias 5:10 PM EDT [facility] Device ID [id number] 11/12/2024 5:10 PM EDT [facility] Specimen Type POC Capillary 11/12/2024 5:10 PM EDT [facility] Blood Capillary blood specimen / Unknown 11/12/2024 5:08 PM EDT 11/12/2024 5:10 PM EDT Nathaly Nowak MD LAB POINT OF CARE TE ST DOCKED DEVICE UNSOLICITED RESULTS Final Result Performing Organization Address City/[facility]/ZIP Co de Phone Number [facility] [address] [place] [address] * (ABNORMAL) POCT glucose meter (11/12/2024 12:36 [...] Comment 11/12/2024 12:38 PM EDT [facility] Whipper ID Braden Wade Collado 12:38 PM EDT [facility] Device ID [id number] 11/12/2024 12:38 PM EDT [facility] Specimen Type POC Capillary 11/12/2024 12:38 PM EDT [facility] Blood Capillary blood specimen / Unknown 11/12/2024 12:36 PM EDT 11/12/2024 12:38 PM EDT Nathaly Nowak MD LAB POINT OF CARE TE ST DOCKED DEVICE UNSOLICITED RESULTS Final Result Performing Organization Address City/[facility]/ZIP Co de Phone Number [facility] [address] [place] [address] * Clostridiodes (Clostridium) difficile PCR (11/12/2024 9:50 AM EDT) C difficile PCR toxin B gene DNA Result Not Detected Not Detected 11/12/2024 11:54 AM EDT [facility] Stool Rectum structure / Unknown Non-blood Collection / Unknown 11/12/2024 9:50 AM EDT 11/12/2024 10:04 AM EDT Narrative [facility] - 11/12/2024 11:54 AM [...] Nathaly Nowak MD LAB MICROBIOLOGY - [facility] Final Result [facility] [address] [place] [address] * Comprehensive GI Panel by PCR (11/12/2024 9:50 AM EDT) Campylobacter PCR Result Not Detected Not Detected 11/12/2024 2:47 PM EDT [facility] Plesiomonas shigelloides PCR Result Not Detected Not Detected 11/12/2024 2:47 PM EDT [facility] Salmonella PCR Result Not Detected Not Detected 11/12/2024 2:47 PM EDT [facility] Vibrio species PCR Result Not Detected Not Detected 11/12/2024 2:47 PM EDT [facility] Vibrio cholerae PCR Result Not Detected Not Detected 11/12/2024 2:47 PM EDT [facility] Yersinia enterocolitica PCR Result Not Detected Not Detected 11/12/2024 2:47 PM EDT [facility] Enteroaggregative E. coli (EAEC) PCR Result Not Detected Not Detected 11/12/2024 2:47 PM EDT [facility] Enteropathogenic E. coli (EPEC) PCR Result Not Detected Not Detected 11/12/2024 2:47 PM EDT [facility] Enterotoxigenic E. coli (ETEC) lt/st PCR Result Not Detected Not Detected 11/12/2024 2:47 PM EDT [facility] Shiga-like Toxin-Producing E.coli (STEC) stx1/stx2 PCR Resu Not Detected Not Detected 11/12/2024 2:47 PM EDT [facility] E coli 0157 PCR Result Not Detected Not Detected 11/12/2024 2:47 PM EDT [facility] Shigella/Enteroinvas tam E. coli (EIEC) PCR Result Not Detected Not Detected 11/12/2024 2:47 PM EDT [facility] Cryptosporidium PCR Result Not Detected Not Detected 11/12/2024 2:47 PM EDT [facility] Cyclospora cayetanensis PCR Result Not Detected Not Detected 11/12/2024 2:47 PM EDT [facility] Entamoeba histolytica PCR Result Not Detected Not Detected 11/12/2024 2:47 PM EDT [facility] Giardia duodenalis (aka Giardia lamblia) PCR Result Not Detected Not Detected 11/12/2024 2:47 PM EDT [facility] Adenovirus F 40/41 PCR Result Not Detected Not Detected 11/12/2024 2:47 PM EDT [facility] Astrovirus PCR Result Not Detected Not Detected 11/12/2024 2:47 PM EDT [facility] Norovirus GI/GII PCR Result Not Detected Not Detected 11/12/2024 2:47 PM EDT [facility] Rotavirus A PCR Result Not Detected Not Detected 11/12/2024 2:47 PM EDT [facility] Sapovirus PCR Result Not Detected Not Detected 11/12/2024 2:47 PM EDT [facility] Stool Rectum structure / Unknown Non-blood Collection / Unknown 11/12/2024 9:50 AM EDT 11/12/2024 10:04 AM EDT [facility] - 11/12/2024 2:47 PM EDT This [...] indicated. Nathaly Nowak MD LAB MICROBIOLOGY - [facility] Final Result Performing Organization Address [facility]/ZIP Co de Phone Number [facility] [address] [place] [address] * C-reactive protein (11/12/2024 9:48 AM EDT) [facility] CRP, Plasma <3.0 <=8.0 mg/L 11/12/2024 10:28 AM EDT [facility] Blood Venous blood specimen / Unknown Venipuncture / Unknown 11/12/2024 9:48 AM EDT 11/12/2024 9:59 AM EDT Narrative [facility] - 11/12/2024 10:28 AM EDT This CRP test is appropriate for assessment of infection, systemic inflammation and/or tissue injury. To assess cardiovascular disease risk order high sensitivity CRP (CRPH). Nathaly Nowak MD LAB BLOOD ORDERABLES Final Resu lt Performing Organization Address [facility] Co de Phone Number [facility] [address] [place] [address] * (ABNORMAL) POCT glucose meter (11/12/2024 8:20 AM EDT) [facility] POCT Glucose 138(H) 74 - 99 mg/dL 11/12/2024 8:21 AM EDT [facility] Comment:Accuracy of a glucos e [...] Comment 11/12/2024 8:21 AM EDT [facility] Whipper ID Wade Feliciano 8:21 AM EDT [facility] Device ID [id number] 11/12/2024 8:21 AM EDT [facility] Specimen Type POC Capillary 11/12/2024 8:21 AM EDT [facility] Blood Capillary blood specimen / Unknown 11/12/2024 8:20 AM EDT 11/12/2024 8:21 AM EDT Nathaly Nowak MD LAB POINT OF CARE TE ST DOCKED DEVICE UNSOLICITED RESULTS Final Result Performing Organization Address [facility] Co de Phone Number [facility] [address] [place] [address] * (ABNORMAL) POCT glucose meter (11/11/2024 8:18 [...] Comment 11/11/2024 8:20 PM EDT [facility] Whipper ID Nelda Gerber 11/12/19 8:20 PM EDT [facility] Device ID [id number] 11/11/2024 8:20 PM EDT [facility] Specimen Type POC Capillary 11/11/2024 8:20 PM EDT [facility] Blood Capillary blood specimen / Unknown 11/11/2024 8:18 PM EDT 11/11/2024 8:20 PM EDT us Nathaly Nowak MD LAB POINT OF CARE TE ST DOCKED DEVICE UNSOLICITED RESULTS Final Result Performing Organization Address City/[facility]/ZIP Co de Phone Number [facility] [address] [place] [address] * (ABNORMAL) POCT glucose meter (11/11/2024 5:59 PM EDT) [facility] POCT Glucose 147(H) 74 - 99 [...] Comment 11/11/2024 6:01 PM EDT [facility] Whipper ID Wade Feliciano 6:01 PM EDT [facility] LAB Device ID [id number] 11/11/2024 6:01 PM EDT [facility] Specimen Type POC Capillary 11/11/2024 6:01 PM EDT [facility] Blood Capillary blood specimen / Unknown 11/11/2024 5:59 PM EDT 11/11/2024 6:01 PM EDT Nathaly Nowak MD LAB POINT OF CARE TE ST DOCKED DEVICE UNSOLICITED RESULTS Final Result [facility] [address] [place] [address] * POCT glucose meter (11/11/2024 5:20 PM EDT) [facility] POCT Glucose 84 74 - 99 [...] Comment 11/11/2024 5:22 PM EDT [facility] Whipper ID Wade Feliciano 5:22 PM EDT [facility] Device ID [id number] 11/11/2024 5:22 PM EDT [facility] Specimen Type POC Capillary 11/11/2024 5:22 PM EDT [facility] Blood Capillary blood specimen / Unknown 11/11/2024 5:20 PM EDT 11/11/2024 5:22 PM EDT Nathaly Nwoak MD LAB POINT OF CARE TE ST DOCKED DEVICE UNSOLICITED RESULTS Final Result [facility] [address] [place] [address] * UT NEGATIVE PRESSURE WOUND THERAPY DME >50 SQ [...] meter (11/11/2024 12:08 PM EDT) Pathologist [facility] POCT Glucose 226(H) 74 - 99 [...] Comment 11/11/2024 12:10 PM EDT [facility] Whipper ID Wade Feliciano Tobias 12:10 PM EDT [facility] LAB Device ID [id number] 11/11/2024 12:10 PM EDT [facility] Specimen Type POC Capillary 11/11/2024 12:10 PM EDT [facility] Blood Capillary blood specimen / Unknown 11/11/2024 12:08 PM EDT 11/11/2024 12:10 PM EDT Nathaly Nowak MD LAB POINT OF CARE TE ST DOCKED DEVICE UNSOLICITED RESULTS Final Result Performing Organization Address City/[facility] Co de Phone Number [facility] [address] [place] [address] * (ABNORMAL) POCT glucose meter (11/11/2024 9:08 AM EDT) [facility] POCT Glucose 162(H) 74 - 99 [...] Comment 11/11/2024 9:09 AM EDT [facility] Whipper ID Wade Feliciano Tobias 9:09 AM EDT [facility] LAB Device ID [id number] 11/11/2024 9:09 AM EDT [facility] Specimen Type POC Capillary 11/11/2024 9:09 AM EDT [facility] Blood Capillary blood specimen / Unknown 11/11/2024 9:08 AM EDT 11/11/2024 9:09 AM EDT Nathaly Nowak MD LAB POINT OF CARE TE ST DOCKED DEVICE UNSOLICITED RESULTS Final Result Performing Organization Address City/[facility]/ZIP Co de Phone Number [facility] [address] [place] [address] * POCT glucose meter (11/11/2024 8:27 AM EDT) [facility] POCT Glucose 87 74 - 99 [...] Comment 11/11/2024 8:28 AM EDT [facility] Whipper ID Wade Feliciano 8:28 AM EDT [facility] LAB Device ID [id number] 11/11/2024 8:28 AM EDT [facility] Specimen Type POC Capillary 11/11/2024 8:28 AM EDT [facility] Blood Capillary blood specimen / Unknown 11/11/2024 8:27 AM EDT 11/11/2024 8:28 AM EDT us Nathaly Nowak MD LAB POINT OF CARE TE ST DOCKED DEVICE UNSOLICITED RESULTS Final Result [facility] [address] [place] [address] * (ABNORMAL) Basic Metabolic Panel, Plasma (11/11/2024 1:12 AM EDT) [facility] Glucose, Plasma 122(H) 74 - 99 mg/dL 11/11/2024 1:12 AM EDT [facility] BUN, Plasma 10 8 - 23 mg/dL 11/11/2024 1:12 AM EDT [facility] Creatinine, Plasma 0.82 0.70 - 1.20 mg/dL 11/11/2024 1:12 AM EDT [facility] BUN/Creatinine Ratio 12 11/11/2024 1:12 AM EDT [facility] Sodium, Plasma 137 136 - 145 mmol/L 11/11/2024 1:12 AM EDT [facility] Potassium, Plasma 3.9 3.6 - 4.9 mmol/L 11/11/2024 1:12 AM EDT [facility] Chloride, Plasma 110(H) 97 - 107 mmol/L 11/11/2024 1:12 AM EDT [facility] CO2, Plasma 20(L) 22 - 29 mmol/L 11/11/2024 1:12 AM EDT [facility] Anion Gap 7 6 - 16 mmol/L 11/11/2024 1:12 AM EDT [facility] Total Calcium, Plasma 7.6(L) 8.9 - 10.2 mg/dL 11/11/2024 1:12 AM EDT [facility] eGFRcr 97.5 mL/min/1.7 3m*2 11/11/2024 1:12 AM EDT [facility] Comment:Reported eGFRcr in m L/min/1.73m2 is based the CKD-EPI 2020 equation that does not use a race coefficient. Blood Venous blood specimen / Unknown 11/11/2024 12:42 AM EDT us Nathaly Nowak MD LAB BLOOD ORDERABLES Final Resu lt [facility] [address] [place] [address] * (ABNORMAL) CBC W/O Differential (11/11/2024 12:56 AM EDT) WBC Count 11.83(H) 3.70 - 10.30 10*3/uL LAB HEMATOLOGY METHOD 11/11/2024 12:56 AM EDT [facility] RBC Count 2.97(L) 4.60 - 6.10 10*6/uL LAB HEMATOLOGY METHOD 11/11/2024 12:56 AM EDT [facility] HGB 8.9(L) 13.7 - 17.5 g/dL LAB HEMATOLOGY METHOD 11/11/2024 12:56 AM EDT [facility] HCT 27.2(L) 40.0 - 51.0 % LAB HEMATOLOGY METHOD 11/11/2024 12:56 AM EDT [facility] Platelet Count 444(H) 155 - 369 10*3/uL LAB HEMATOLOGY METHOD 11/11/2024 12:56 AM EDT [facility] MCV 92 79 - 98 fL LAB HEMATOLOGY METHOD 11/11/2024 12:56 AM EDT [facility] MCH 30.0 26.0 - 32.0 pg LAB HEMATOLOGY METHOD 11/11/2024 12:56 AM EDT [facility] MCHC 32.7 30.7 - 35.5 g/dL LAB HEMATOLOGY METHOD 11/11/2024 12:56 AM EDT [facility] RDW 13.3 11.5 - 14.5 % LAB HEMATOLOGY METHOD 11/11/2024 12:56 AM EDT [facility] MPV 9.0 8.8 - 12.5 fL LAB HEMATOLOGY METHOD 11/11/2024 12:56 AM EDT [facility] nRBC 0.0 <=0.0 per 100 WBCs LAB HEMATOLOGY METHOD 11/11/2024 12:56 AM EDT [facility] Blood Venous blood specimen / Unknown 11/11/2024 12:42 AM EDT us Nathaly Nowak MD LAB BLOOD ORDERABLES Final Resu lt [facility] [address] [place] [address] * (ABNORMAL) POCT glucose meter (11/10/2024 8:25 [...] Comment 11/10/2024 8:28 PM EDT [facility] Whipper ID Nelda Gerber 11/11/19 8:28 PM EDT HEALTHCARE LAB Device ID [id number] 11/10/2024 8:28 PM EDT [facility] LAB Specimen Type POC Capillary 11/10/2024 8:28 PM EDT [facility] Blood Capillary blood specimen / Unknown 11/10/2024 8:25 PM EDT 11/10/2024 8:28 PM EDT Nathaly Nowak MD LAB POINT OF CARE TE ST DOCKED DEVICE UNSOLICITED RESULTS Final Result Performing Organization Address [facility] Co de Phone Number [facility] [address] [place] [address] * (ABNORMAL) POCT glucose meter (11/10/2024 4:45 [...] Comment 11/10/2024 4:47 PM EDT [facility] Whipper ID Esperanza Parks 11/10/2024 4:47 PM EDT HEALTH[facility]ARE LAB Device ID [id number] 11/10/2024 4:47 PM EDT [facility] Specimen Type POC Capillary 11/10/2024 4:47 PM EDT [facility] Blood Capillary blood specimen / Unknown 11/10/2024 4:45 PM EDT 11/10/2024 4:47 PM EDT Nathaly Nowak MD LAB POINT OF CARE TE ST DOCKED DEVICE UNSOLICITED RESULTS Final Result Performing Organization Address City/[facility] Co de Phone Number [facility] [address] [place] [address] * (ABNORMAL) POCT glucose meter (11/10/2024 12:13 [...] Comment 11/10/2024 12:14 PM EDT [facility] Whipper ID Esperanza Parks 11/10/2024 12:14 PM EDT [facility]ALTH[facility] LAB Device ID [id number] 11/10/2024 12:14 PM EDT [facility]ALTH[facility]ARE LAB Specimen Type POC Capillary 11/10/2024 12:14 PM EDT [facility] Blood Capillary blood specimen / Unknown 11/10/2024 12:13 PM EDT 11/10/2024 12:14 PM EDT us Nathaly Nowak MD LAB POINT OF CARE TE ST DOCKED DEVICE UNSOLICITED RESULTS Final Result Performing Organization Address City/[facility]/ZIP Co de Phone Number [facility] [address] [place] [address] * Vancomycin, Peak, Plasma Please draw ~2 hours after 0800 dose of vancomycin finishes infusing. Consider obtaining level via peripheral stick. If peripheral stick is not feasible, please ensure that line is flushed well prior to drawing level. Than... (11/10/2024 10:56 AM EDT) Vancomycin, Peak, Plasma 23.8 20.0 - 40.0 ug/mL 11/10/2024 11:25 AM EDT [facility] Blood Venous blood specimen / Unknown Venipuncture / Unknown 11/10/2024 10:56 AM EDT 11/10/2024 11:00 AM EDT Narrative [facility] - 11/10/2024 11:25 AM EDT Therapeutic Peak level: 20-40ug/mL Supra-therapeutic Peak level: >40 ug/mL us Abigail Seay MD LAB BLOOD ORDERABLES Final Res ult [facility] [address] [place] [address] * (ABNORMAL) POCT glucose meter (11/10/2024 8:03 [...] Comment 11/10/2024 8:04 AM EDT [facility] Whipper ID Esperanza Parks 11/10/2024 8:04 AM EDT HEALTH[facility]ARE LAB Device ID [id number] 11/10/2024 8:04 AM EDT [facility] Specimen Type POC Capillary 11/10/2024 8:04 AM EDT [facility] Blood Capillary blood specimen / Unknown 11/10/2024 8:03 AM EDT 11/10/2024 8:04 AM EDT us Nathaly Nowak MD LAB POINT OF CARE TE ST DOCKED DEVICE UNSOLICITED RESULTS Final Result Performing Organization Address [facility] Co de Phone Number [facility] [address] [place] [id number] * Vancomycin, Trough, Plasma Please draw ~30 minutes prior to dose due at 0800 on 11/10. Please do NOThold dose awaiting level to return. Consider obtaining level via peripheral stick. If peripheral stick is not feasible, please ensure that line is... (11/10/2024 7:27 AM EDT) Vancomycin, Trough, Plasma 16.2 10.0 - 20.0 ug/mL 11/10/2024 8:24 AM EDT [facility] Blood Venous blood specimen / Unknown Venipuncture / Unknown 11/10/2024 7:27 AM EDT 11/10/2024 7:51 AM EDT Narrative [facility] - 11/10/2024 8:24 AM EDT Therapeutic Trough level: 10-20ug/mL Supra-therapeutic Trough level: >20 ug/mL us Abigail Seay MD LAB BLOOD ORDERABLES Final Res ult Performing Organization Address [facility]/ZIP Co de Phone Number [facility] [address] [place] [address] [place] [address] * (ABNORMAL) CBC and Differential (11/10/2024 12:31 AM EDT) WBC Count 10.80(H) 3.70 - 10.30 10*3/uL LAB HEMATOLOGY METHOD 11/10/2024 12:53 AM EDT [facility] RBC Count 3.06(L) 4.60 - 6.10 10*6/uL LAB HEMATOLOGY METHOD 11/10/2024 12:53 AM EDT [facility] HGB 9.1(L) 13.7 - 17.5 g/dL LAB HEMATOLOGY METHOD 11/10/2024 12:53 AM EDT [facility] HCT 28.0(L) 40.0 - 51.0 % LAB HEMATOLOGY METHOD 11/10/2024 12:53 AM EDT [facility] Platelet Count 501(H) 155 - 369 10*3/uL LAB HEMATOLOGY METHOD 11/10/2024 12:53 AM EDT [facility] MCV 92 79 - 98 fL LAB HEMATOLOGY METHOD 11/10/2024 12:53 AM EDT [facility] MCH 29.7 26.0 - 32.0 pg LAB HEMATOLOGY METHOD 11/10/2024 12:53 AM EDT [facility] MCHC 32.5 30.7 - 35.5 g/dL LAB HEMATOLOGY METHOD 11/10/2024 12:53 AM EDT [facility] RDW 13.2 11.5 - 14.5 % LAB HEMATOLOGY METHOD 11/10/2024 12:53 AM EDT [facility] MPV 8.8 8.8 - 12.5 fL LAB HEMATOLOGY METHOD 11/10/2024 12:53 AM EDT [facility] nRBC 0.0 <=0.0 per 100 WBCs LAB HEMATOLOGY METHOD 11/10/2024 12:53 AM EDT [facility] Differential Type Automated LAB HEMATOLOGY METHOD 11/10/2024 12:53 AM EDT [facility] Neutrophils % 77 % LAB HEMATOLOGY METHOD 11/10/2024 12:53 AM EDT [facility] Lymphocytes % 13 % LAB HEMATOLOGY METHOD 11/10/2024 12:53 AM EDT [facility] Monocytes % 8 % LAB HEMATOLOGY METHOD 11/10/2024 12:53 AM EDT [facility] Eosinophils % 1 % LAB HEMATOLOGY METHOD 11/10/2024 12:53 AM EDT [facility] Basophils % 0 % LAB HEMATOLOGY METHOD 11/10/2024 12:53 AM EDT [facility] Immature Granulocytes % 1 % LAB HEMATOLOGY METHOD 11/10/2024 12:53 AM EDT [facility] Neutrophils Absolute 8.32(H) 1.60 - 6.10 10*3/uL LAB HEMATOLOGY METHOD 11/10/2024 12:53 AM EDT [facility] Lymphocytes Absolute 1.40 1.20 - 3.90 10*3/uL LAB HEMATOLOGY METHOD 11/10/2024 12:53 AM EDT [facility] Monocytes Absolute 0.89 0.30 - 0.90 10*3/uL LAB HEMATOLOGY METHOD 11/10/2024 12:53 AM EDT [facility] Eosinophils Absolute 0.09 0.00 - 0.50 10*3/uL LAB HEMATOLOGY METHOD 11/10/2024 12:53 AM EDT [facility] Basophils Absolute 0.04 0.00 - 0.10 10*3/uL LAB HEMATOLOGY METHOD 11/10/2024 12:53 AM EDT [facility] LAB Immature Granulocytes Absolute 0.06 0.00 - 0.06 10*3/uL LAB HEMATOLOGY METHOD 11/10/2024 12:53 AM EDT [facility] Blood Venous blood specimen / Unknown Venipuncture / Unknown 11/10/2024 12:31 AM EDT 11/10/2024 12:37 AM EDT Narrative [facility] - 11/10/2024 12:53 AM EDT Therapeutic decision making should be based on absolute values, rather than percentages. us Nathaly Nowak MD LAB BLOOD ORDERABLES Final Resu lt [facility] [address] [place] [address] * (ABNORMAL) Comprehensive Metabolic Panel, Plasma (11/10/2024 12:31 AM EDT) Glucose, Plasma 185(H) 74 - 99 mg/dL 11/10/2024 1:05 AM EDT [facility] BUN, Plasma 9 8 - 23 mg/dL 11/10/2024 1:05 AM EDT [facility] Creatinine, Plasma 0.72 0.70 - 1.20 mg/dL 11/10/2024 1:05 AM EDT [facility] BUN/Creatinine Ratio 13 11/10/2024 1:05 AM EDT [facility] Sodium, Plasma 135(L) 136 - 145 mmol/L 11/10/2024 1:05 AM EDT [facility] Potassium, Plasma 4.0 3.6 - 4.9 mmol/L 11/10/2024 1:05 AM EDT [facility] Chloride, Plasma 106 97 - 107 mmol/L 11/10/2024 1:05 AM EDT [facility] CO2, Plasma 19(L) 22 - 29 mmol/L 11/10/2024 1:05 AM EDT [facility] Anion Gap 10 6 - 16 mmol/L 11/10/2024 1:05 AM EDT [facility] Total Calcium, Plasma 7.8(L) 8.9 - 10.2 mg/dL 11/10/2024 1:05 AM EDT [facility] Total Protein 5.6(L) 6.3 - 7.9 g/dL 11/10/2024 1:05 AM EDT [facility] Albumin, Plasma 3.1(L) 3.5 - 5.2 g/dL 11/10/2024 1:05 AM EDT [facility] AST, Plasma 33 10 - 50 U/L 11/10/2024 1:05 AM EDT [facility] ALT, Plasma 25 10 - 50 U/L 11/10/2024 1:05 AM EDT [facility] Alkaline Phosphatase, Plasma 108 40 - 115 U/L 11/10/2024 1:05 AM EDT [facility] Total Bilirubin, Plasma <0.2(L) 0.2 - 1.1 mg/dL 11/10/2024 1:05 AM EDT [facility] eGFRcr 101.4 mL/min/1.7 3m*2 11/10/2024 1:05 AM EDT [facility] Comment:Reported eGFRcr in m L/min/1.73m2 is based the CKD-EPI 2020 equation that does not use a race coefficient. Blood Venous blood specimen / Unknown Venipuncture / Unknown 11/10/2024 12:31 AM EDT 11/10/2024 12:37 AM EDT Nathaly Nowak MD LAB BLOOD ORDERABLES Final Resu lt [facility] [address] [place] [address] * (ABNORMAL) POCT glucose meter (11/09/2024 8:04 [...] Comment 11/09/2024 8:06 PM EDT [facility] Whipper ID Maximiliano Hansen II 11/09/2024 8:06 PM EDT [facility] LAB Device ID [id number] 11/09/2024 8:06 PM EDT [facility] LAB Specimen Type POC Capillary 11/09/2024 8:06 PM EDT [facility] Blood Capillary blood specimen / Unknown 11/09/2024 8:04 PM EDT 11/09/2024 8:06 PM EDT us Nathaly Nowak MD LAB POINT OF CARE TE ST DOCKED DEVICE UNSOLICITED RESULTS Final Result Performing Organization Address City/[facility]/ZIP Co de Phone Number HEALTHCARE LAB [address] [place] [address] * (ABNORMAL) POCT glucose meter (11/09/2024 4:36 [...] Comment 11/09/2024 4:38 PM EDT [facility] LAB Whipper ID Kristian Sosa 11/09/2024 4:38 PM EDT [facility]ALTH[facility]ARE LAB Device ID [id number] 11/09/2024 4:38 PM EDT [facility] LAB Specimen Type POC Capillary 11/09/2024 4:38 PM EDT [facility] Blood Capillary blood specimen / Unknown 11/09/2024 4:36 PM EDT 11/09/2024 4:38 PM EDT Nathaly Nowak MD LAB POINT OF CARE TE ST DOCKED DEVICE UNSOLICITED RESULTS Final Result Performing Organization Address City/State/[facility] Co de Phone Number HEALTHCARE LAB [address] [place] [address] * PICC SINGLE LUMEN (SM[employer] LINK) (11/09/2024 1:11 PM EDT) Narrative Estefani Barraza RN - 11/09/2024 1:11 PM EDT Estefani Barraza RN 11/09/2024 1:12 PM Insert PICC line Date/Time: 11/09/2024 1:11 PM Performed by: Estefani Barraza RN Authorized by: Nathaly Nowak MD [place] Protocol: Verbal consent obtained?: Yes Written consent [...] selection rationale: Left pacemaker Catheter Lot #: [id number] Catheter clinical cytogenetics director: Catheter placed: Single lumen Catheter size: 4 [...] POCT glucose meter (11/09/2024 11:50 AM EDT) [facility] POCT Glucose 127(H) 74 - 99 [...] Comment 11/09/2024 11:51 AM EDT [facility]ARE LAB Whipper ID Kristian Sosa 11/09/2024 11:51 AM EDT HEALTHCARE LAB Device ID [id number] 11/09/2024 11:51 AM EDT [facility]ALTH[facility]ARE LAB Specimen Type POC Capillary 11/09/2024 11:51 AM EDT [facility] LAB Blood Capillary blood specimen / Unknown 11/09/2024 11:50 AM EDT 11/09/2024 11:51 AM EDT Nathaly Nowak MD LAB POINT OF CARE TE ST DOCKED DEVICE UNSOLICITED RESULTS Final Result Performing Organization Address City/[facility] Co de Phone Number [facility] [address] [place] [address] * (ABNORMAL) POCT glucose meter (11/09/2024 8:14 AM EDT) [facility] POCT Glucose 153(H) 74 - 99 [...] Comment 11/09/2024 8:15 AM EDT [facility]ARE LAB Whipper ID Kristian Sosa 11/09/2024 8:15 AM EDT [facility]ALTH[facility]ARE LAB Device ID [id number] 11/09/2024 8:15 AM EDT [facility]ALTH[facility]ARE LAB Specimen Type POC Capillary 11/09/2024 8:15 AM EDT [facility] LAB Blood Capillary blood specimen / Unknown 11/09/2024 8:14 AM EDT 11/09/2024 8:15 AM EDT Nathaly Nowak MD LAB POINT OF CARE TE ST DOCKED DEVICE UNSOLICITED RESULTS Final Result Performing Organization Address [facility] Co de Phone Number [facility] [address] [place] [address] * (ABNORMAL) CBC and Differential (11/09/2024 4:15 AM EDT) [facility] WBC Count 10.27 3.70 - 10.30 10*3/uL LAB HEMATOLOGY METHOD 11/09/2024 4:26 AM EDT [facility] RBC Count 3.14(L) 4.60 - 6.10 10*6/uL LAB HEMATOLOGY METHOD 11/09/2024 4:26 AM EDT [facility] HGB 9.2(L) 13.7 - 17.5 g/dL LAB HEMATOLOGY METHOD 11/09/2024 4:26 AM EDT [facility] HCT 28.3(L) 40.0 - 51.0 % LAB HEMATOLOGY METHOD 11/09/2024 4:26 AM EDT [facility] Platelet Count 468(H) 155 - 369 10*3/uL LAB HEMATOLOGY METHOD 11/09/2024 4:26 AM EDT [facility] MCV 90 79 - 98 fL LAB HEMATOLOGY METHOD 11/09/2024 4:26 AM EDT [facility] MCH 29.3 26.0 - 32.0 pg LAB HEMATOLOGY METHOD 11/09/2024 4:26 AM EDT [facility] MCHC 32.5 30.7 - 35.5 g/dL LAB HEMATOLOGY METHOD 11/09/2024 4:26 AM EDT [facility] RDW 13.1 11.5 - 14.5 % LAB HEMATOLOGY METHOD 11/09/2024 4:26 AM EDT [facility] MPV 8.7(L) 8.8 - 12.5 fL LAB HEMATOLOGY METHOD 11/09/2024 4:26 AM EDT [facility] nRBC 0.0 <=0.0 per 100 WBCs LAB HEMATOLOGY METHOD 11/09/2024 4:26 AM EDT [facility] Differential Type Automated LAB HEMATOLOGY METHOD 11/09/2024 4:26 AM EDT [facility] Neutrophils % 77 % LAB HEMATOLOGY METHOD 11/09/2024 4:26 AM EDT [facility] Lymphocytes % 13 % LAB HEMATOLOGY METHOD 11/09/2024 4:26 AM EDT [facility] Monocytes % 8 % LAB HEMATOLOGY METHOD 11/09/2024 4:26 AM EDT [facility] Eosinophils % 1 % LAB HEMATOLOGY METHOD 11/09/2024 4:26 AM EDT [facility] Basophils % 0 % LAB HEMATOLOGY METHOD 11/09/2024 4:26 AM EDT [facility] Immature Granulocytes % 1 % LAB HEMATOLOGY METHOD 11/09/2024 4:26 AM EDT [facility] Neutrophils Absolute 7.97(H) 1.60 - 6.10 10*3/uL LAB HEMATOLOGY METHOD 11/09/2024 4:26 AM EDT [facility] Lymphocytes Absolute 1.32 1.20 - 3.90 10*3/uL LAB HEMATOLOGY METHOD 11/09/2024 4:26 AM EDT [facility] Monocytes Absolute 0.83 0.30 - 0.90 10*3/uL LAB HEMATOLOGY METHOD 11/09/2024 4:26 AM EDT [facility] Eosinophils Absolute 0.07 0.00 - 0.50 10*3/uL LAB HEMATOLOGY METHOD 11/09/2024 4:26 AM EDT [facility] Basophils Absolute 0.03 0.00 - 0.10 10*3/uL LAB HEMATOLOGY METHOD 11/09/2024 4:26 AM EDT [facility] Immature Granulocytes Absolute 0.05 0.00 - 0.06 10*3/uL LAB HEMATOLOGY METHOD 11/09/2024 4:26 AM EDT [facility] Blood Venous blood specimen / Unknown Venipuncture / Unknown 11/09/2024 4:15 AM EDT 11/09/2024 4:18 AM EDT Narrative [facility] - 11/09/2024 4:26 AM EDT Therapeutic decision making should be based on absolute values, rather than percentages. us Nathaly Nowak MD LAB BLOOD ORDERABLES Final Resu lt [facility] [address] [place] [address] * (ABNORMAL) Comprehensive Metabolic Panel, Plasma (11/09/2024 4:15 AM EDT) Glucose, Plasma 171(H) 74 - 99 mg/dL 11/09/2024 4:47 AM EDT [facility] BUN, Plasma 9 8 - 23 mg/dL 11/09/2024 4:47 AM EDT [facility] Creatinine, Plasma 0.67(L) 0.70 - 1.20 mg/dL 11/09/2024 4:47 AM EDT [facility] BUN/Creatinine Ratio 13 11/09/2024 4:47 AM EDT [facility] Sodium, Plasma 134(L) 136 - 145 mmol/L 11/09/2024 4:47 AM EDT [facility] Potassium, Plasma 4.1 3.6 - 4.9 mmol/L 11/09/2024 4:47 AM EDT [facility] Chloride, Plasma 104 97 - 107 mmol/L 11/09/2024 4:47 AM EDT [facility] CO2, Plasma 21(L) 22 - 29 mmol/L 11/09/2024 4:47 AM EDT [facility] Anion Gap 9 6 - 16 mmol/L 11/09/2024 4:47 AM EDT [facility] Total Calcium, Plasma 8.4(L) 8.9 - 10.2 mg/dL 11/09/2024 4:47 AM EDT [facility] Total Protein 5.8(L) 6.3 - 7.9 g/dL 11/09/2024 4:47 AM EDT [facility] Albumin, Plasma 3.2(L) 3.5 - 5.2 g/dL 11/09/2024 4:47 AM EDT [facility] AST, Plasma 18 10 - 50 U/L 11/09/2024 4:47 AM EDT [facility] ALT, Plasma 17 10 - 50 U/L 11/09/2024 4:47 AM EDT [facility] Alkaline Phosphatase, Plasma 110 40 - 115 U/L 11/09/2024 4:47 AM EDT [facility] Total Bilirubin, Plasma <0.2(L) 0.2 - 1.1 mg/dL 11/09/2024 4:47 AM EDT [facility] eGFRcr 103.6 mL/min/1.7 3m*2 11/09/2024 4:47 AM EDT [facility] Comment:Reported eGFRcr in m L/min/1.73m2 is based the CKD-EPI 2020 equation that does not use a race coefficient. Blood Venous blood specimen / Unknown Venipuncture / Unknown 11/09/2024 4:15 AM EDT 11/09/2024 4:18 AM EDT us Nathaly Nowak MD LAB BLOOD ORDERABLES Final Resu lt [facility] [address] [place] [address] * (ABNORMAL) POCT glucose meter (11/09/2024 3:30 [...] Comment 11/09/2024 3:31 AM EDT [facility]ALTH[facility] Whipper ID Maximiliano Hansen II 11/09/2024 3:31 AM EDT [facility]ALTH[facility]ARE LAB Device ID [id number] 11/09/2024 3:31 AM EDT [facility]ALTH[facility]ARE LAB Specimen Type POC Capillary 11/09/2024 3:31 AM EDT [facility] Blood Capillary blood specimen / Unknown 11/09/2024 3:30 AM EDT 11/09/2024 3:31 AM EDT Nathaly Nowak MD LAB POINT OF CARE TE ST DOCKED DEVICE UNSOLICITED RESULTS Final Result Performing Organization Address City/State/[facility] Co de Phone Number HEALTHCARE LAB [address] [place] [address] * (ABNORMAL) POCT glucose meter (11/08/2024 7:21 PM EDT) [facility] POCT Glucose 292(H) 74 - 99 [...] Comment 11/08/2024 7:22 PM EDT [facility] Whipper ID Maximiliano Hansen II 11/08/2024 7:22 PM EDT HEALTHCARE LAB Device ID [id number] 11/08/2024 7:22 PM EDT [facility]ALTH[facility]ARE LAB Specimen Type POC Capillary 11/08/2024 7:22 PM EDT [facility] Blood Capillary blood specimen / Unknown 11/08/2024 7:21 PM EDT 11/08/2024 7:22 PM EDT Nathaly Nowak MD LAB POINT OF CARE TE ST DOCKED DEVICE UNSOLICITED RESULTS Final Result Performing Organization Address [facility] Co de Phone Number [facility]ALTHCARE LAB [address] [place] [address] * (ABNORMAL) POCT glucose meter (11/08/2024 5:12 PM EDT) [facility] POCT Glucose 178(H) 74 - 99 [...] Comment 11/08/2024 5:14 PM EDT [facility] Whipper ID Estefani Sheth 11/08/2024 5:14 PM EDT HEALTH[facility]ARE LAB Device ID [id number] 11/08/2024 5:14 PM EDT [facility] Specimen Type POC Capillary 11/08/2024 5:14 PM EDT [facility] Blood Capillary blood specimen / Unknown 11/08/2024 5:12 PM EDT 11/08/2024 5:14 PM EDT Nathaly Nowak MD LAB POINT OF CARE TE ST DOCKED DEVICE UNSOLICITED RESULTS Final Result Performing Organization Address City/[facility] Co de Phone Number [facility] [address] [place] [address] * (ABNORMAL) POCT glucose meter (11/08/2024 12:03 PM EDT) [facility] POCT Glucose 191(H) 74 - 99 [...] Comment 11/08/2024 12:05 PM EDT [facility] LAB Whipper ID Estefani Sheth 11/08/2024 12:05 PM EDT HEALTHCARE LAB Device ID [id number] 11/08/2024 12:05 PM EDT [facility]ALTH[facility]ARE LAB Specimen Type POC Capillary 11/08/2024 12:05 PM EDT [facility] Blood Capillary blood specimen / Unknown 11/08/2024 12:03 PM EDT 11/08/2024 12:05 PM EDT Nathaly Nowak MD LAB POINT OF CARE TE ST DOCKED DEVICE UNSOLICITED RESULTS Final Result Performing Organization Address [facility] Co de Phone Number [facility]ALTHCARE LAB [address] [place] [address] * Vancomycin, Peak, Plasma Please draw ~2 hours after 11/08 0600 dose of vancomycin finishes infusing.Consider obtaining level via peripheral stick. If peripheral stick is not feasible, please ensure that line is flushed well prior to drawing level.... (11/08/2024 9:24 AM EDT) Vancomycin, Peak, Plasma 29.1 20.0 - 40.0 ug/mL 11/08/2024 10:31 AM EDT [facility] Blood Venous blood specimen / Unknown Venipuncture / Unknown 11/08/2024 9:24 AM EDT 11/08/2024 9:47 AM EDT Narrative [facility] - 11/08/2024 10:31 AM EDT Therapeutic Peak level: 20-40ug/mL Supra-therapeutic Peak level: >40 ug/mL us Nathaly Nowak MD LAB BLOOD ORDERABLES Final Resu lt Performing Organization Address [facility] Co de Phone Number [facility] [address] [place] [address] * (ABNORMAL) POCT glucose meter (11/08/2024 8:00 [...] Comment 11/08/2024 8:01 AM EDT [facility]ALTH[facility]ARE LAB Whipper ID Estefani Sheth 11/08/2024 8:01 AM EDT HEALTHCARE LAB Device ID [id number] 11/08/2024 8:01 AM EDT [facility] Specimen Type POC Capillary 11/08/2024 8:01 AM EDT [facility] Blood Capillary blood specimen / Unknown 11/08/2024 8:00 AM EDT 11/08/2024 8:01 AM EDT us Nathaly Nowak MD LAB POINT OF CARE TE ST DOCKED DEVICE UNSOLICITED RESULTS Final Result Performing Organization Address City/State/[facility] Co de Phone Number [facility]ARE LAB [address] [place] [address] * (ABNORMAL) CBC and Differential (11/08/2024 4:39 AM EDT) [facility] WBC Count 9.18 3.70 - 10.30 10*3/uL LAB HEMATOLOGY METHOD 11/08/2024 4:58 AM EDT [facility] RBC Count 3.11(L) 4.60 - 6.10 10*6/uL LAB HEMATOLOGY METHOD 11/08/2024 4:58 AM EDT [facility] HGB 9.2(L) 13.7 - 17.5 g/dL LAB HEMATOLOGY METHOD 11/08/2024 4:58 AM EDT [facility] HCT 28.9(L) 40.0 - 51.0 % LAB HEMATOLOGY METHOD 11/08/2024 4:58 AM EDT [facility] Platelet Count 485(H) 155 - 369 10*3/uL LAB HEMATOLOGY METHOD 11/08/2024 4:58 AM EDT [facility] MCV 93 79 - 98 fL LAB HEMATOLOGY METHOD 11/08/2024 4:58 AM EDT [facility] MCH 29.6 26.0 - 32.0 pg LAB HEMATOLOGY METHOD 11/08/2024 4:58 AM EDT [facility] MCHC 31.8 30.7 - 35.5 g/dL LAB HEMATOLOGY METHOD 11/08/2024 4:58 AM EDT [facility] RDW 13.0 11.5 - 14.5 % LAB HEMATOLOGY METHOD 11/08/2024 4:58 AM EDT [facility] MPV 8.8 8.8 - 12.5 fL LAB HEMATOLOGY METHOD 11/08/2024 4:58 AM EDT [facility] nRBC 0.0 <=0.0 per 100 WBCs LAB HEMATOLOGY METHOD 11/08/2024 4:58 AM EDT [facility] Differential Type Automated LAB HEMATOLOGY METHOD 11/08/2024 4:58 AM EDT [facility] Neutrophils % 69 % LAB HEMATOLOGY METHOD 11/08/2024 4:58 AM EDT [facility] Lymphocytes % 17 % LAB HEMATOLOGY METHOD 11/08/2024 4:58 AM EDT [facility] Monocytes % 10 % LAB HEMATOLOGY METHOD 11/08/2024 4:58 AM EDT [facility] Eosinophils % 2 % LAB HEMATOLOGY METHOD 11/08/2024 4:58 AM EDT [facility] Basophils % 1 % LAB HEMATOLOGY METHOD 11/08/2024 4:58 AM EDT [facility] Immature Granulocytes % 1 % LAB HEMATOLOGY METHOD 11/08/2024 4:58 AM EDT [facility] Neutrophils Absolute 6.40(H) 1.60 - 6.10 10*3/uL LAB HEMATOLOGY METHOD 11/08/2024 4:58 AM EDT [facility] Lymphocytes Absolute 1.59 1.20 - 3.90 10*3/uL LAB HEMATOLOGY METHOD 11/08/2024 4:58 AM EDT [facility] Monocytes Absolute 0.87 0.30 - 0.90 10*3/uL LAB HEMATOLOGY METHOD 11/08/2024 4:58 AM EDT [facility] Eosinophils Absolute 0.22 0.00 - 0.50 10*3/uL LAB HEMATOLOGY METHOD 11/08/2024 4:58 AM EDT [facility] Basophils Absolute 0.05 0.00 - 0.10 10*3/uL LAB HEMATOLOGY METHOD 11/08/2024 4:58 AM EDT [facility] Immature Granulocytes Absolute 0.05 0.00 - 0.06 10*3/uL LAB HEMATOLOGY METHOD 11/08/2024 4:58 AM EDT [facility] Blood Venous blood specimen / Unknown Venipuncture / Unknown 11/08/2024 4:39 AM EDT 11/08/2024 4:49 AM EDT Narrative [facility] - 11/08/2024 4:58 AM EDT Therapeutic decision making should be based on absolute values, rather than percentages. us Nathaly Nowak MD LAB BLOOD ORDERABLES Final Resu lt [facility] [address] [place] [address] * (ABNORMAL) Comprehensive Metabolic Panel, Plasma (11/08/2024 4:39 AM EDT) Glucose, Plasma 255(H) 74 - 99 mg/dL 11/08/2024 5:20 AM EDT [facility] BUN, Plasma 10 8 - 23 mg/dL 11/08/2024 5:20 AM EDT [facility] Creatinine, Plasma 0.75 0.70 - 1.20 mg/dL 11/08/2024 5:20 AM EDT [facility] BUN/Creatinine Ratio 13 11/08/2024 5:20 AM EDT [facility] Sodium, Plasma 133(L) 136 - 145 mmol/L 11/08/2024 5:20 AM EDT [facility] Potassium, Plasma 5.2(H) 3.6 - 4.9 mmol/L 11/08/2024 5:20 AM EDT [facility] Chloride, Plasma 105 97 - 107 mmol/L 11/08/2024 5:20 AM EDT [facility] CO2, Plasma 20(L) 22 - 29 mmol/L 11/08/2024 5:20 AM EDT [facility] Anion Gap 8 6 - 16 mmol/L 11/08/2024 5:20 AM EDT [facility] Total Calcium, Plasma 7.7(L) 8.9 - 10.2 mg/dL 11/08/2024 5:20 AM EDT [facility] Total Protein 5.6(L) 6.3 - 7.9 g/dL 11/08/2024 5:20 AM EDT [facility] Albumin, Plasma 2.8(L) 3.5 - 5.2 g/dL 11/08/2024 5:20 AM EDT [facility] AST, Plasma 20 10 - 50 U/L 11/08/2024 5:20 AM EDT [facility] Comment:Hemolyzed, result ma y be falsely increased. ALT, Plasma 14 10 - 50 U/L 11/08/2024 5:20 AM EDT [facility] Alkaline Phosphatase, Plasma 119(H) 40 - 115 U/L 11/08/2024 5:20 AM EDT [facility] Total Bilirubin, Plasma <0.2(L) 0.2 - 1.1 mg/dL 11/08/2024 5:20 AM EDT [facility] eGFRcr 100.1 mL/min/1.7 3m*2 11/08/2024 5:20 AM EDT [facility] Comment:Reported eGFRcr in m L/min/1.73m2 is based the CKD-EPI 2020 equation that does not use a race coefficient. Blood Venous blood specimen / Unknown Venipuncture / Unknown 11/08/2024 4:39 AM EDT 11/08/2024 4:43 AM EDT us Nathaly Nowak MD LAB BLOOD ORDERABLES Final Resu lt [facility] [address] [place] [address] * Vancomycin, Trough, Plasma Please draw ~30 minutes prior to dose due at 0600 on 11/08. Please do NOThold dose awaiting level to return. Consider obtaining level via peripheral stick. If peripheral stick is not feasible, please ensure that line is... (11/08/2024 4:39 AM EDT) [facility] Vancomycin, Trough, Plasma 18.7 10.0 - 20.0 ug/mL 11/08/2024 5:22 AM EDT [facility] Blood Venous blood specimen / Unknown Venipuncture / Unknown 11/08/2024 4:39 AM EDT 11/08/2024 4:43 AM EDT Narrative [facility] - 11/08/2024 5:22 AM EDT Therapeutic Trough level: 10-20ug/mL Supra-therapeutic Trough level: >20 ug/mL us Nathaly Nowak MD LAB BLOOD ORDERABLES Final Resu lt Performing Organization Address [facility]/ZIP Co de Phone Number [facility] [address] [place] [address] * (ABNORMAL) POCT glucose meter (11/07/2024 7:26 PM EDT) [facility] POCT Glucose 172(H) 74 - 99 [...] Comment 11/07/2024 7:28 PM EDT [facility] Whipper ID Maximiliano Hansen II 11/07/2024 7:28 PM EDT [facility]ALTH[facility] LAB Device ID [id number] 11/07/2024 7:28 PM EDT [facility] LAB Specimen Type POC Capillary 11/07/2024 7:28 PM EDT [facility] Blood Capillary blood specimen / Unknown 11/07/2024 7:26 PM EDT 11/07/2024 7:28 PM EDT us Nathaly Nowak MD LAB POINT OF CARE TE ST DOCKED DEVICE UNSOLICITED RESULTS Final Result Performing Organization Address City/[facility]/ZIP Co de Phone Number [facility] [address] [place] [address] * (ABNORMAL) POCT glucose meter (11/07/2024 5:51 PM EDT) Pathologist [facility] POCT Glucose 183(H) 74 - 99 [...] Comment 11/07/2024 5:52 PM EDT [facility]ALTH[facility] LAB Whipper ID Brigitte Castellon 11/07/2024 5:52 PM EDT HEALTHCARE LAB Device ID [id number] 11/07/2024 5:52 PM EDT [facility] Specimen Type POC Capillary 11/07/2024 5:52 PM EDT [facility] Blood Capillary blood specimen / Unknown 11/07/2024 5:51 PM EDT 11/07/2024 5:52 PM EDT us Nathaly Nowak MD LAB POINT OF CARE TE ST DOCKED DEVICE UNSOLICITED RESULTS Final Result Performing Organization Address City/State/[facility] Co de Phone Number [facility] [address] [place] [address] * (ABNORMAL) POCT glucose meter (11/07/2024 4:47 PM EDT) [facility] POCT Glucose 162(H) 74 - 99 [...] 11/07/2024 4:48 PM EDT [facility] Whipper ID Estefani Sheth 11/07/2024 4:48 PM EDT [facility] Device ID [id number] 11/07/2024 4:48 PM EDT [facility] Specimen Type POC Capillary 11/07/2024 4:48 PM EDT [facility] Blood Capillary blood specimen / Unknown 11/07/2024 4:47 PM EDT 11/07/2024 4:48 PM EDT Nathaly Nowak MD LAB POINT OF CARE TE ST DOCKED DEVICE UNSOLICITED RESULTS Final Result Performing Organization Address City/[facility]/ZIP Co de Phone Number [facility] [address] [place] [address] * (ABNORMAL) POCT glucose meter (11/07/2024 12:22 [...] for testing. Comment 11/07/2024 12:24 PM EDT [facility] Whipper ID Estefani Sheth 11/07/2024 12:24 PM EDT HEALTHCARE LAB Device ID [id number] 11/07/2024 12:24 PM EDT [facility] Specimen Type POC Capillary 11/07/2024 12:24 PM EDT [facility] Blood Capillary blood specimen / Unknown 11/07/2024 12:22 PM EDT 11/07/2024 12:24 PM EDT Nathaly Nowak MD LAB POINT OF CARE TE ST DOCKED DEVICE UNSOLICITED RESULTS Final Result Performing Organization Address City/[facility]/ZIP Co de Phone Number [facility] [address] [place] [address] * (ABNORMAL) CBC and Differential (11/07/2024 11:37 AM EDT) WBC Count 9.96 3.70 - 10.30 10*3/uL LAB HEMATOLOGY METHOD 11/07/2024 12:33 PM EDT [facility] RBC Count 2.81(L) 4.60 - 6.10 10*6/uL LAB HEMATOLOGY METHOD 11/07/2024 12:33 PM EDT [facility] HGB 8.5(L) 13.7 - 17.5 g/dL LAB HEMATOLOGY METHOD 11/07/2024 12:33 PM EDT [facility] HCT 26.0(L) 40.0 - 51.0 % LAB HEMATOLOGY METHOD 11/07/2024 12:33 PM EDT [facility] Platelet Count 524(H) 155 - 369 10*3/uL LAB HEMATOLOGY METHOD 11/07/2024 12:33 PM EDT [facility] MCV 93 79 - 98 fL LAB HEMATOLOGY METHOD 11/07/2024 12:33 PM EDT [facility] MCH 30.2 26.0 - 32.0 pg LAB HEMATOLOGY METHOD 11/07/2024 12:33 PM EDT [facility] MCHC 32.7 30.7 - 35.5 g/dL LAB HEMATOLOGY METHOD 11/07/2024 12:33 PM EDT [facility] RDW 13.1 11.5 - 14.5 % LAB HEMATOLOGY METHOD 11/07/2024 12:33 PM EDT [facility] MPV 9.0 8.8 - 12.5 fL LAB HEMATOLOGY METHOD 11/07/2024 12:33 PM EDT [facility] nRBC 0.0 <=0.0 per 100 WBCs LAB HEMATOLOGY METHOD 11/07/2024 12:33 PM EDT [facility] Differential Type Automated LAB HEMATOLOGY METHOD 11/07/2024 12:33 PM EDT [facility] Neutrophils % 72 % LAB HEMATOLOGY METHOD 11/07/2024 12:33 PM EDT [facility] Lymphocytes % 17 % LAB HEMATOLOGY METHOD 11/07/2024 12:33 PM EDT [facility] Monocytes % 9 % LAB HEMATOLOGY METHOD 11/07/2024 12:33 PM EDT [facility] Eosinophils % 1 % LAB HEMATOLOGY METHOD 11/07/2024 12:33 PM EDT [facility] Basophils % 1 % LAB HEMATOLOGY METHOD 11/07/2024 12:33 PM EDT [facility] Immature Granulocytes % 0 % LAB HEMATOLOGY METHOD 11/07/2024 12:33 PM EDT [facility] Neutrophils Absolute 7.19(H) 1.60 - 6.10 10*3/uL LAB HEMATOLOGY METHOD 11/07/2024 12:33 PM EDT [facility] Lymphocytes Absolute 1.66 1.20 - 3.90 10*3/uL LAB HEMATOLOGY METHOD 11/07/2024 12:33 PM EDT [facility] Monocytes Absolute 0.88 0.30 - 0.90 10*3/uL LAB HEMATOLOGY METHOD 11/07/2024 12:33 PM EDT [facility] Eosinophils Absolute 0.14 0.00 - 0.50 10*3/uL LAB HEMATOLOGY METHOD 11/07/2024 12:33 PM EDT [facility] Basophils Absolute 0.05 0.00 - 0.10 10*3/uL LAB HEMATOLOGY METHOD 11/07/2024 12:33 PM EDT [facility] Immature Granulocytes Absolute 0.04 0.00 - 0.06 10*3/uL LAB HEMATOLOGY METHOD 11/07/2024 12:33 PM EDT [facility] Blood Venous blood specimen / Unknown Venipuncture / Unknown 11/07/2024 11:37 AM EDT 11/07/2024 12:24 PM EDT Narrative [facility] - 11/07/2024 12:33 PM EDT Therapeutic decision making should be based on absolute values, rather than percentages. us Nathaly Nowak MD LAB BLOOD ORDERABLES Final Resu lt [facility] [address] [place] [address] * (ABNORMAL) Comprehensive Metabolic Panel, Plasma (11/07/2024 11:37 AM EDT) Glucose, Plasma 173(H) 74 - 99 mg/dL 11/07/2024 1:31 PM EDT [facility] BUN, Plasma 13 8 - 23 mg/dL 11/07/2024 1:31 PM EDT [facility] Creatinine, Plasma 0.92 0.70 - 1.20 mg/dL 11/07/2024 1:31 PM EDT [facility] BUN/Creatinine Ratio 14 11/07/2024 1:31 PM EDT [facility] Sodium, Plasma 136 136 - 145 mmol/L 11/07/2024 1:31 PM EDT [facility] Potassium, Plasma 4.0 3.6 - 4.9 mmol/L 11/07/2024 1:31 PM EDT [facility] Chloride, Plasma 104 97 - 107 mmol/L 11/07/2024 1:31 PM EDT [facility] CO2, Plasma 23 22 - 29 mmol/L 11/07/2024 1:31 PM EDT [facility] Anion Gap 9 6 - 16 mmol/L 11/07/2024 1:31 PM EDT [facility] Total Calcium, Plasma 7.8(L) 8.9 - 10.2 mg/dL 11/07/2024 1:31 PM EDT [facility] Total Protein 5.7(L) 6.3 - 7.9 g/dL 11/07/2024 1:31 PM EDT [facility] Albumin, Plasma 3.0(L) 3.5 - 5.2 g/dL 11/07/2024 1:31 PM EDT [facility] AST, Plasma 15 10 - 50 U/L 11/07/2024 1:31 PM EDT [facility] ALT, Plasma 16 10 - 50 U/L 11/07/2024 1:31 PM EDT [facility] Alkaline Phosphatase, Plasma 119(H) 40 - 115 U/L 11/07/2024 1:31 PM EDT [facility] Total Bilirubin, Plasma <0.2(L) 0.2 - 1.1 mg/dL 11/07/2024 1:31 PM EDT [facility] eGFRcr 92.3 mL/min/1.7 3m*2 11/07/2024 1:31 PM EDT [facility] Comment:Reported eGFRcr in m L/min/1.73m2 is based the CKD-EPI 2020 equation that does not use a race coefficient. Blood Venous blood specimen / Unknown Venipuncture / Unknown 11/07/2024 11:37 AM EDT 11/07/2024 12:23 PM EDT Nathaly Nowak MD LAB BLOOD ORDERABLES Final Resu lt Performing Organization Address City/[facility]/ZIP Co de Phone Number [facility] [address] [place] [address] * Type and Screen (11/07/2024 11:37 AM [...] ORDERABLES F inal Result Performing Organization Address [facility] de Phone Number BLOOD BANK [address] [place] [address] * (ABNORMAL) POCT glucose meter (11/07/2024 10:34 AM EDT) [facility] POCT Glucose 199(H) 74 - 99 [...] Comment 11/07/2024 10:36 AM EDT [facility] Whipper ID Joy Iraheta 11/07/2024 10:36 AM EDT [facility]ALTH[facility] LAB Device ID [id number] 11/07/2024 10:36 AM EDT [facility]ALTH[facility] LAB Specimen Type POC Capillary 11/07/2024 10:36 AM EDT [facility] Blood Capillary blood specimen / Unknown 11/07/2024 10:34 AM EDT 11/07/2024 10:36 AM EDT Nathaly Nowak MD LAB POINT OF CARE TE ST DOCKED DEVICE UNSOLICITED RESULTS Final Result Performing Organization Address City/[facility] Co de Phone Number HEALTHCARE LAB [address] [place] [address] * (ABNORMAL) POCT glucose meter (11/07/2024 9:34 [...] for testing. Comment 11/07/2024 9:36 AM EDT [facility] Whipper ID Brigitte Castellon 11/07/2024 9:36 AM EDT [facility] Device ID [id number] 11/07/2024 9:36 AM EDT [facility] Specimen Type POC Capillary 11/07/2024 9:36 AM EDT [facility] Blood Capillary blood specimen / Unknown 11/07/2024 9:34 AM EDT 11/07/2024 9:36 AM EDT Nathaly Nowak MD LAB POINT OF CARE TE ST DOCKED DEVICE UNSOLICITED RESULTS Final Result Performing Organization Address City/[facility] Co de Phone Number [facility] [address] [place] [address] * (ABNORMAL) POCT glucose meter (11/07/2024 8:20 [...] Comment 11/07/2024 8:22 AM EDT [facility]ALTH[facility]ARE LAB Whipper ID Estefani Sheth 11/07/2024 8:22 AM EDT HEALTHCARE LAB Device ID [id number] 11/07/2024 8:22 AM EDT HEALTHCARE LAB Specimen Type POC Capillary 11/07/2024 8:22 AM EDT [facility]ALTH[facility] LAB Blood Capillary blood specimen / Unknown 11/07/2024 8:20 AM EDT 11/07/2024 8:22 AM EDT us Nathaly Nowak MD LAB POINT OF CARE TE ST DOCKED DEVICE UNSOLICITED RESULTS Final Result Performing Organization Address City/[facility]/ZIP Co de Phone Number HEALTHCARE LAB [address] [place] [address] * (ABNORMAL) POCT glucose meter (11/07/2024 7:21 [...] Comment 11/07/2024 7:22 AM EDT [facility]ALTH[facility] LAB Whipper ID Brigitte Castellon 11/07/2024 7:22 AM EDT HEALTHCARE LAB Device ID [id number] 11/07/2024 7:22 AM EDT HEALTH[facility]ARE LAB Specimen Type POC Capillary 11/07/2024 7:22 AM EDT [facility]ALTH[facility] Blood Capillary blood specimen / Unknown 11/07/2024 7:21 AM EDT 11/07/2024 7:22 AM EDT us Nathaly Nowak MD LAB POINT OF CARE TE ST DOCKED DEVICE UNSOLICITED RESULTS Final Result Performing Organization Address City/[facility]/ZIP Co de Phone Number HEALTHCARE LAB [address] [place] [address] * (ABNORMAL) POCT glucose meter (11/07/2024 6:25 [...] Comment 11/07/2024 6:27 AM EDT [facility] Whipper ID Nelda Gerber 11/08/19 6:27 AM EDT [facility] Device ID [id number] 11/07/2024 6:27 AM EDT HEALTH[facility]ARE LAB Specimen Type POC Capillary 11/07/2024 6:27 AM EDT [facility] Blood Capillary blood specimen / Unknown 11/07/2024 6:25 AM EDT 11/07/2024 6:27 AM EDT us Nathaly Nowak MD LAB POINT OF CARE TE ST DOCKED DEVICE UNSOLICITED RESULTS Final Result Performing Organization Address City/State/[facility] Co de Phone Number [facility] [address] [place] [address] * (ABNORMAL) POCT glucose meter (11/07/2024 5:03 AM EDT) Pathologist [facility] POCT Glucose 139(H) 74 - 99 [...] 11/07/2024 5:08 AM EDT [facility] Whipper ID Nelda Gerber 11/08/19 5:08 AM EDT [facility] LAB Device ID [id number] 11/07/2024 5:08 AM EDT HEALTHCARE LAB Specimen Type POC Capillary 11/07/2024 5:08 AM EDT [facility] Blood Capillary blood specimen / Unknown 11/07/2024 5:03 AM EDT 11/07/2024 5:08 AM EDT Nathaly Nowak MD LAB POINT OF CARE TE ST DOCKED DEVICE UNSOLICITED RESULTS Final Result Performing Organization Address City/[facility]/ZIP Co de Phone Number [facility] [address] [place] [address] * (ABNORMAL) POCT glucose meter (11/07/2024 4:16 [...] Comment 11/07/2024 4:18 AM EDT [facility]ALTH[facility]ARE LAB Whipper ID Nelda Gerber 11/08/19 4:18 AM EDT HEALTHCARE LAB Device ID [id number] 11/07/2024 4:18 AM EDT [facility] Specimen Type POC Capillary 11/07/2024 4:18 AM EDT [facility] Blood Capillary blood specimen / Unknown 11/07/2024 4:16 AM EDT 11/07/2024 4:18 AM EDT us Nathaly Nowak MD LAB POINT OF CARE TE ST DOCKED DEVICE UNSOLICITED RESULTS Final Result [facility] [address] [place] [address] * (ABNORMAL) POCT glucose meter (11/07/2024 3:21 [...] Comment 11/07/2024 3:23 AM EDT [facility]ALTH[facility] LAB Whipper ID Nelda Gerber 11/08/19 3:23 AM EDT HEALTHCARE LAB Device ID [id number] 11/07/2024 3:23 AM EDT HEALTHCARE LAB Specimen Type POC Capillary 11/07/2024 3:23 AM EDT [facility]ALTH[facility] LAB Blood Capillary blood specimen / Unknown 11/07/2024 3:21 AM EDT 11/07/2024 3:23 AM EDT us Nathaly Nowak MD LAB POINT OF CARE TE ST DOCKED DEVICE UNSOLICITED RESULTS Final Result Performing Organization Address City/State/[facility] Co de Phone Number HEALTH[facility]ARE LAB [address] [place] [address] * (ABNORMAL) POCT glucose meter (11/07/2024 2:10 [...] Comment 11/07/2024 2:12 AM EDT [facility]ALTH[facility] LAB Whipper ID Nelda Gerber 11/08/19 2:12 AM EDT [facility] [facility] [facility] LAB Device ID [id number] 11/07/2024 2:12 AM EDT HEALTHCARE LAB Specimen Type POC Capillary 11/07/2024 2:12 AM EDT [facility]ALTH[facility] LAB Blood Capillary blood specimen / Unknown 11/07/2024 2:10 AM EDT 11/07/2024 2:12 AM EDT us Nathaly Nowak MD LAB POINT OF CARE TE ST DOCKED DEVICE UNSOLICITED RESULTS Final Result [facility] [address] [place] [address] * (ABNORMAL) POCT glucose meter (11/07/2024 1:08 [...] for testing. Comment 11/07/2024 1:10 AM EDT [facility] Whipper ID Nelda Gerber 11/08/19 1:10 AM EDT [facility] Device ID [id number] 11/07/2024 1:10 AM EDT [facility] Specimen Type POC Capillary 11/07/2024 1:10 AM EDT [facility] Blood Capillary blood specimen / Unknown 11/07/2024 1:08 AM EDT 11/07/2024 1:10 AM EDT Nathaly Nowak MD LAB POINT OF CARE TE ST DOCKED DEVICE UNSOLICITED RESULTS Final Result Performing Organization Address City/[facility]/ZIP Co de Phone Number [facility] [address] [place] [address] * (ABNORMAL) POCT glucose meter (11/07/2024 12:10 [...] Comment 11/07/2024 12:13 AM EDT [facility]ALTHCARE LAB Whipper ID Nelda Gerber 11/08/19 25 12:13 AM EDT HEALTHCARE LAB Device ID [id number] 11/07/2024 12:13 AM EDT HEALTHCARE LAB Specimen Type POC Capillary 11/07/2024 12:13 AM EDT [facility]ALTH[facility] LAB Blood Capillary blood specimen / Unknown 11/07/2024 12:10 AM EDT 11/07/2024 12:13 AM EDT Nathaly Nowak MD LAB POINT OF CARE TE ST DOCKED DEVICE UNSOLICITED RESULTS Final Result Performing Organization Address City/[facility]/ZIP Co de Phone Number [facility] [address] [place] [address] * (ABNORMAL) POCT glucose meter (11/06/2024 11:14 PM EDT) [facility] POCT Glucose 71(L) 74 - 99 [...] Comment 11/06/2024 11:16 PM EDT [facility]ALTH[facility] LAB Whipper ID Nelda Gerber 11/07/19 11:16 PM EDT HEALTHCARE LAB Device ID [id number] 11/06/2024 11:16 PM EDT [facility]ALTH[facility]ARE LAB Specimen Type POC Capillary 11/06/2024 11:16 PM EDT [facility]ALTH[facility] LAB Blood Capillary blood specimen / Unknown 11/06/2024 11:14 PM EDT 11/06/2024 11:16 PM EDT Nathaly Nowak MD LAB POINT OF CARE TE ST DOCKED DEVICE UNSOLICITED RESULTS Final Result Performing Organization Address City/[facility]/ZIP Co de Phone Number [facility] [address] [place] [address] * (ABNORMAL) POCT glucose meter (11/06/2024 10:07 PM EDT) [facility] POCT Glucose 140(H) 74 - 99 [...] Comment 11/06/2024 10:09 PM EDT [facility]ALTH[facility]ARE LAB Whipper ID Nelda Gerber 11/07/19 10:09 PM EDT HEALTHCARE LAB Device ID [id number] 11/06/2024 10:09 PM EDT [facility]ALTH[facility]ARE LAB Specimen Type POC Capillary 11/06/2024 10:09 PM EDT [facility]ALTH[facility] LAB Blood Capillary blood specimen / Unknown 11/06/2024 10:07 PM EDT 11/06/2024 10:09 PM EDT us Nathaly Nowak MD LAB POINT OF CARE TE ST DOCKED DEVICE UNSOLICITED RESULTS Final Result Performing Organization Address City/State/[facility] Co de Phone Number HEALTHCARE LAB [address] [place] [address] * (ABNORMAL) POCT glucose meter (11/06/2024 8:22 PM EDT) [facility] POCT Glucose 256(H) 74 - 99 [...] 11/06/2024 8:25 PM EDT [facility] Whipper ID Nelda Gerber 11/07/19 8:25 PM EDT HEALTHCARE LAB Device ID [id number] 11/06/2024 8:25 PM EDT HEALTHCARE LAB Specimen Type POC Capillary 11/06/2024 8:25 PM EDT [facility] Blood Capillary blood specimen / Unknown 11/06/2024 8:22 PM EDT 11/06/2024 8:25 PM EDT Nathaly Nowak MD LAB POINT OF CARE TE ST DOCKED DEVICE UNSOLICITED RESULTS Final Result Performing Organization Address City/[facility]/ZIP Co de Phone Number HEALTHCARE LAB [address] [place] [address] * (ABNORMAL) POCT glucose meter (11/06/2024 7:31 [...] Comment 11/06/2024 7:32 PM EDT [facility]ALTH[facility]ARE LAB Whipper ID Nelda Gerber 11/07/19 7:32 PM EDT HEALTHCARE LAB Device ID [id number] 11/06/2024 7:32 PM EDT HEALTHCARE LAB Specimen Type POC Capillary 11/06/2024 7:32 PM EDT [facility] Blood Capillary blood specimen / Unknown 11/06/2024 7:31 PM EDT 11/06/2024 7:32 PM EDT Nathaly Nowak MD LAB POINT OF CARE TE ST DOCKED DEVICE UNSOLICITED RESULTS Final Result [facility] [address] [place] [address] * (ABNORMAL) POCT glucose meter (11/06/2024 6:15 [...] Comment 11/06/2024 6:17 PM EDT [facility]ALTH[facility]ARE LAB Whipper ID Estefani Sheth 11/06/2024 6:17 PM EDT HEALTHCARE LAB Device ID [id number] 11/06/2024 6:17 PM EDT HEALTHCARE LAB Specimen Type POC Capillary 11/06/2024 6:17 PM EDT [facility]ALTH[facility]ARE LAB Blood Capillary blood specimen / Unknown 11/06/2024 6:15 PM EDT 11/06/2024 6:17 PM EDT Nathaly Nowak MD LAB POINT OF CARE TE ST DOCKED DEVICE UNSOLICITED RESULTS Final Result Performing Organization Address City/State/[facility] Co de Phone Number HEALTHCARE LAB [address] [place] [address] * (ABNORMAL) POCT glucose meter (11/06/2024 4:57 PM EDT) [facility] POCT Glucose 417(H) 74 - 99 [...] Comment 11/06/2024 4:58 PM EDT [facility]ALTH[facility]ARE LAB Whipper ID Estefani Sheth 11/06/2024 4:58 PM EDT HEALTHCARE LAB Device ID [id number] 11/06/2024 4:58 PM EDT HEALTHCARE LAB Specimen Type POC Capillary 11/06/2024 4:58 PM EDT [facility]ALTH[facility]ARE LAB Blood Capillary blood specimen / Unknown 11/06/2024 4:57 PM EDT 11/06/2024 4:58 PM EDT Nathaly Nowak MD LAB POINT OF CARE TE ST DOCKED DEVICE UNSOLICITED RESULTS Final Result Performing Organization Address City/[facility]/ZIP Co de Phone Number HEALTHCARE LAB [address] [place] [address] * (ABNORMAL) POCT glucose meter (11/06/2024 2:08 PM EDT) [facility] POCT Glucose 253(H) 74 - 99 [...] Comment 11/06/2024 2:09 PM EDT [facility]ALTH[facility]ARE LAB Whipper ID Brigitte Castellon 11/06/2024 2:09 PM EDT HEALTHCARE LAB Device ID [id number] 11/06/2024 2:09 PM EDT [facility] Specimen Type POC Capillary 11/06/2024 2:09 PM EDT [facility] Blood Capillary blood specimen / Unknown 11/06/2024 2:08 PM EDT 11/06/2024 2:[address] [facility] Nathaly Nowak MD LAB POINT OF CARE TE ST DOCKED DEVICE UNSOLICITED RESULTS Final Result Performing Organization Address [facility] Co de Phone Number [facility] [address] [place] [address] * (ABNORMAL) POCT glucose meter (11/06/2024 12:27 PM EDT) [facility] POCT Glucose 228(H) 74 - 99 [...] 11/06/2024 12:28 PM EDT [facility] Whipper ID Jacinta Galloway 11/06/2024 12:28 PM EDT HEALTHCARE LAB Device ID [id number] 11/06/2024 12:28 PM EDT HEALTH[facility]ARE LAB Specimen Type POC Capillary 11/06/2024 12:28 PM EDT [facility]ALTH[facility] LAB Blood Capillary blood specimen / Unknown 11/06/2024 12:27 PM EDT 11/06/2024 12:28 PM EDT us Nathaly Nowak MD LAB POINT OF CARE TE ST DOCKED DEVICE UNSOLICITED RESULTS Final Result [facility] [address] [place] [address] * (ABNORMAL) Tissue Culture and Gram Stain (11/06/2024 11:34 AM EDT) Culture Moderate Growth 7:35 AM EDT [facility] Culture 2+ Enterobacter cloacae complex(A) ANGÉLICA 11/15/2024 7:35 AM EDT [facility] Comment: This isolate has been identified using the FDA Approved [employer] [place] System The organism value for this result has been updated. These results have been appended to the previously preliminary verified report. Edited result: Previously reported as Gram Negative Jesus on 11/07/2024 at 1434 EDT. Culture 2+ Streptococcus mitis/oralis group(A) ANGÉLICA 11/15/2024 7:35 AM EDT [facility] Comment: This isolate has been identified using the FDA Approved [employer]DI Exercise [employer] CA System The organism value for this result has been updated. These results have been appended to the previously preliminary verified report. Culture 2+ Pasteurella stomatis(A) ANGÉLICA 11/15/2024 7:35 AM EDT [facility] Comment: This result was determined by MALDI tof mass spectrometry using the [employer] database and is for research use only. The organism value for this result has been updated. These results have been appended to the previously preliminary verified report. Gram Stain Result Few Gram negative rods(A) 11/15/2024 7:35 AM EDT [facility] Gram Stain Result Moderate Polymorphonuclear leukocytes(A) 11/15/2024 7:35 AM EDT [facility] Gram Stain Result Few Gram positive cocci in pairs(A) 11/15/2024 7:35 AM EDT [facility] Tissue Topography unknown / Unknown 11/06/2024 11:34 AM EDT 11/06/2024 12:18 PM EDT Comment:Pre-op diagnosis: Surgical wound infection [T81.49XA] Narrative [facility] - 11/15/2024 7:35 AM [...] GENERAL ATIYA FRITZ Edited Result - Final [facility] [address] [place] [address] * (ABNORMAL) Anaerobic Culture (11/06/2024 11:34 AM EDT) Culture No anaerobes isolated 11/14/2024 1:25 PM EDT [facility] Culture Staphylococcus pseudintermedius( A) 11/14/2024 1:25 PM EDT [facility] Comment: This result was determined by MALDI tof mass spectrometry using the [employer] database and is for research use only. This is an appended report. These results have been appended to a previously final verified report. Tissue Topography unknown / Unknown 11/06/2024 11:34 AM EDT 11/06/2024 12:18 PM EDT Comment:Pre-op diagnosis: Surgical wound infection [T81.49XA] Narrative [facility] - 11/14/2024 1:25 PM [...] Nathaly Nowak MD LAB MICROBIOLOGY - GENERAL [facility] Edited Result - Final [facility] [address] [place] [address] * (ABNORMAL) Routine Culture and Gram Stain (11/06/2024 11:29 AM EDT) Culture Moderate Growth 5:29 PM EDT [facility] Culture Enterobacter cloacae complex(A) 11/08/2024 5:29 PM EDT [facility] Comment: This isolate has been identified using the FDA Approved [employer] CA System For susceptibility results refer to: - [id number] The organism value for this result has been updated. These results have been appended to the previously preliminary verified report. Gram Stain Result No polymorphonuclear leukocytes seen 11/08/2024 5:29 PM EDT [facility] Gram Stain Result No organisms seen 11/08/2024 5:29 PM EDT [facility] Swab Topography unknown / Unknown 11/06/2024 11:29 AM EDT 11/06/2024 12:19 PM EDT Comment:Pre-op diagnosis: Surgical wound infection [T81.49XA] Nathaly Nowak MD LAB MICROBIOLOGY - GENERAL [facility] Final Result Performing Organization Address City/[facility]/ZIP Co de Phone Number [facility] [address] [place] [address] * Fungal Culture, Routine (11/06/2024 11:29 AM EDT) Culture No Fungal Growth at 1 Week 11/13/2024 8:29 AM EDT [facility] Swab Topography unknown / Unknown 11/06/2024 11:29 AM EDT 11/06/2024 12:19 PM EDT Comment:Pre-op diagnosis: Surgical wound infection [T81.49XA] Nathaly Nowak MD LAB MICROBIOLOGY - GENERAL [facility] Final Result Performing Organization Address [facility] [place] [address] * (ABNORMAL) Anaerobic Culture (11/06/2024 11:29 AM EDT) Culture No anaerobes isolated 11/14/2024 1:25 PM EDT [facility] Culture Streptococcus mitis/oralis group(A) 11/14/2024 1:25 PM EDT [facility] Comment: This result was determined by MALDI tof mass spectrometry using the [employer] database and is for research use only. The organism value for this result has been updated. These results have been appended to the previously preliminary verified report. This is a corrected result. Previous organism was Mixed skin clifton on 11/10/2024 at 0718 EDT. Culture Staphylococcus pseudintermedius( A) 11/14/2024 1:25 PM EDT [facility] Comment: This isolate has been identified using the FDA Approved [employer] CA System This is an appended report. These results have been appended to a previously final verified report. Swab Topography unknown / Unknown 11/06/2024 11:29 AM EDT 11/06/2024 12:19 PM EDT Comment:Pre-op diagnosis: Surgical wound infection [T81.49XA] Narrative [facility] - 11/14/2024 1:25 PM [...] Nathaly Nowak MD [facility] Edited Result - Final [facility] [address] [place] [address] * Routine Culture and Gram Stain (11/06/2024 11:28 AM EDT) Culture No growth at day 4 2024 11:24 AM EDT [facility] Gram Stain Result No organisms seen 11/10/2024 11:24 AM EDT [facility] Gram Stain Result No polymorphonuclear leukocytes seen 11/10/2024 11:24 AM EDT [facility] Swab Topography unknown / Unknown 11/06/2024 11:28 AM EDT 11/06/2024 12:20 PM EDT Comment:Pre-op diagnosis: Surgical wound infection [T81.49XA] Nathaly Nowak MD LAB MICROBIOLOGY - GENERAL ATI[facility]Z Final Result Performing Organization Address [facility] Co de Phone Number [facility] [address] [place] [address] * Fungal Culture, Routine (11/06/2024 11:28 AM EDT) Culture No Fungal Growth at 1 Week 11/13/2024 8:29 AM EDT [facility] Swab Topography unknown / Unknown 11/06/2024 11:28 AM EDT 11/06/2024 12:20 PM EDT Comment:Pre-op diagnosis: Surgical wound infection [T81.49XA] Nathaly Nowak MD LAB MICROBIOLOGY - GENERAL ATIYA FRITZ Final Result Performing Organization Address [facility] Co de Phone Number [facility] [address] [place] [address] * Anaerobic Culture (11/06/2024 11:28 AM EDT) Culture No growth at day 4 11/13/2024 12:53 PM EDT [facility] Swab Topography unknown / Unknown 11/06/2024 11:28 AM EDT 11/06/2024 12:20 PM EDT Comment:Pre-op diagnosis: Surgical wound infection [T81.49XA] Nathaly Nowak MD LAB MICROBIOLOGY - GENERAL ATIYA FRITZ Final Result Performing Organization Address City/[facility] Co de Phone Number [facility] [address] [place] [address] * (ABNORMAL) POCT glucose meter (11/06/2024 10:16 AM EDT) POCT Glucose 194(H) 74 - 99 mg/dL 11/06/2024 10:18 AM EDT [facility] Comment:Accuracy of a glucos e [...] Comment 11/06/2024 10:18 AM EDT [facility] Whipper ID Lacy Griffin 11/07/19 10:18 AM EDT HEALTHCARE LAB Device ID [id number] 11/06/2024 10:18 AM EDT [facility]ALTH[facility]ARE LAB Specimen Type POC Capillary 11/06/2024 10:18 AM EDT [facility] Blood Capillary blood specimen / Unknown 11/06/2024 10:16 AM EDT 11/06/2024 10:18 AM EDT Nathaly Nowak MD LAB POINT OF CARE TE ST DOCKED DEVICE UNSOLICITED RESULTS Final Result Performing Organization Address City/[facility] Co de Phone Number [facility] [address] [place] [address] * (ABNORMAL) POCT glucose meter (11/06/2024 5:58 [...] Comment 11/06/2024 6:01 AM EDT [facility] Whipper ID Raj Laird 11/07/19 6:01 AM EDT HEALTHCARE LAB Device ID [id number] 11/06/2024 6:01 AM EDT [facility]ALTH[facility]ARE LAB Specimen Type POC Capillary 11/06/2024 6:01 AM EDT [facility] Blood Capillary blood specimen / Unknown 11/06/2024 5:58 AM EDT 11/06/2024 6:01 AM EDT us Nathaly Nowak MD LAB POINT OF CARE TE ST DOCKED DEVICE UNSOLICITED RESULTS Final Result Performing Organization Address City/[facility]/ZIP Co de Phone Number [facility]ARE [facility] [address] [place] [address] * (ABNORMAL) POCT glucose meter (11/06/2024 5:36 [...] Comment 11/06/2024 5:38 AM EDT [facility] Whipper ID Shahid Sanches 11/06/2024 5:38 AM EDT HEALTHCARE LAB Device ID [id number] 11/06/2024 5:38 AM EDT [facility] Specimen Type POC Capillary 11/06/2024 5:38 AM EDT [facility] Blood Capillary blood specimen / Unknown 11/06/2024 5:36 AM EDT 11/06/2024 5:38 AM EDT us Nathaly Nowak MD LAB POINT OF CARE TE ST DOCKED DEVICE UNSOLICITED RESULTS Final Result Performing Organization Address City/State/[facility] Co de Phone Number [facility]ARE [facility] [address] [place] [id number] * (ABNORMAL) Hemoglobin A1c (11/06/2024 1:07 AM EDT) Hemoglobin A1c 7.6(H) <5.7 % 11/06/2024 11:09 AM EDT [facility] Blood Venous blood specimen / Unknown Venipuncture / Unknown 11/06/2024 1:07 AM EDT 11/06/2024 1:26 AM EDT Narrative [facility] - 11/06/2024 11:09 AM EDT HA1C Interpretive Data: Diagnosis of Diabetes: Diabetic > or = 6.5% Pre-diabetic 5.7 to 6.4% Non-diabetic < or = 5.6% Glycemic Targets for Type I and Type II Diabetics: Non- Adults <7.0% Adults <6.0% Children and Adolescents <7.5% Source: [place] [employer]. Standards of medical care in diabetes,2017. Diabetes Care.2017:40 (suppl 1):S1-S135. Result [facility] Nathaly Nowak MD LAB BLOOD ORDERABLES Final Resu lt Performing Organization Address City/[facility]/ZIP Co de Phone Number [facility] [address] [place] [address] * Blood Culture (Aerobic/Anaerobet Set) (11/06/2024 1:07 AM EDT) Culture No growth at day 5 11/11/2024 2:49 AM EDT [facility] Blood Structure of right hand / Unknown Venipuncture / Unknown 11/06/2024 1:07 AM EDT 11/06/2024 2:36 AM EDT Nathaly Nowak MD LAB MICROBIOLOGY - GENERAL ORDE RABONEIDA Final Result Performing Organization Address [facility] Co de Phone Number [facility] [address] [place] [address] * Blood Culture (Aerobic/Anaerobet Set) (11/06/2024 1:07 AM EDT) Culture No growth at day 5 11/11/2024 3:01 AM EDT [facility] Blood Structure of antecubital vein / Unknown Venipuncture / Unknown 11/06/2024 1:07 AM EDT 11/06/2024 2:[address] [facility] Nathaly Nowak MD LAB MICROBIOLOGY - GENERAL ORDE RABONEIDA Final Result Performing Organization Address City/[facility] Co de Phone Number [facility] [address] [place] [address] * (ABNORMAL) Basic metabolic panel (11/06/2024 1:07 AM EDT) Glucose, Plasma 207(H) 74 - 99 mg/dL 11/06/2024 1:41 AM EDT [facility] BUN, Plasma 20 8 - 23 mg/dL 11/06/2024 1:41 AM EDT [facility] Creatinine, Plasma 0.92 0.70 - 1.20 mg/dL 11/06/2024 1:41 AM EDT [facility] BUN/Creatinine Ratio 22 11/06/2024 1:41 AM EDT [facility] Sodium, Plasma 136 136 - 145 mmol/L 11/06/2024 1:41 AM EDT [facility] Potassium, Plasma 4.5 3.6 - 4.9 mmol/L 11/06/2024 1:41 AM EDT [facility] Chloride, Plasma 104 97 - 107 mmol/L 11/06/2024 1:41 AM EDT [facility] CO2, Plasma 22 22 - 29 mmol/L 11/06/2024 1:41 AM EDT [facility] Anion Gap 10 6 - 16 mmol/L 11/06/2024 1:41 AM EDT [facility] Total Calcium, Plasma 9.0 8.9 - 10.2 mg/dL 11/06/2024 1:41 AM EDT [facility] eGFRcr 92.3 mL/min/1.7 3m*2 11/06/2024 1:41 AM EDT [facility] Comment:Reported eGFRcr in m L/min/1.73m2 is based the CKD-EPI 2020 equation that does not use a race coefficient. Blood Venous blood specimen / Unknown Venipuncture / Unknown 11/06/2024 1:07 AM EDT 11/06/2024 1:12 AM EDT us Nathaly Nowak MD LAB BLOOD ORDERABLES Final Resu lt [facility] [address] [place] [address] * Phosphorus (11/06/2024 1:07 AM EDT) Phosphorus, Plasma 3.2 2.5 - 4.5 mg/dL 11/06/2024 1:41 AM EDT [facility] Blood Venous blood specimen / Unknown Venipuncture / Unknown 11/06/2024 1:07 AM EDT 11/06/2024 1:12 AM EDT us Nathaly Nowak MD LAB BLOOD ORDERABLES Final Resu lt Performing Organization Address City/[facility]/ZIP Co de Phone Number [facility] [address] [place] [address] * Magnesium (11/06/2024 1:07 AM EDT) Magnesium, Plasma 2.2 1.9 - 2.4 mg/dL 11/06/2024 1:41 AM EDT [facility] Blood Venous blood specimen / Unknown Venipuncture / Unknown 11/06/2024 1:07 AM EDT 11/06/2024 1:12 AM EDT us Nathaly Nowak MD LAB BLOOD ORDERABLES Final Resu lt Performing Organization Address [facility] Co de Phone Number [facility] [address] [place] [address] * (ABNORMAL) CBC (11/06/2024 1:07 AM EDT) Pathologist [facility] WBC Count 9.70 3.70 - 10.30 10*3/uL LAB HEMATOLOGY METHOD 11/06/2024 1:19 AM EDT [facility] RBC Count 2.89(L) 4.60 - 6.10 10*6/uL LAB HEMATOLOGY METHOD 11/06/2024 1:19 AM EDT [facility] HGB 8.8(L) 13.7 - 17.5 g/dL LAB HEMATOLOGY METHOD 11/06/2024 1:19 AM EDT [facility] HCT 26.2(L) 40.0 - 51.0 % LAB HEMATOLOGY METHOD 11/06/2024 1:19 AM EDT [facility] Platelet Count 542(H) 155 - 369 10*3/uL LAB HEMATOLOGY METHOD 11/06/2024 1:19 AM EDT [facility] MCV 91 79 - 98 fL LAB HEMATOLOGY METHOD 11/06/2024 1:19 AM EDT [facility] MCH 30.4 26.0 - 32.0 pg LAB HEMATOLOGY METHOD 11/06/2024 1:19 AM EDT [facility] MCHC 33.6 30.7 - 35.5 g/dL LAB HEMATOLOGY METHOD 11/06/2024 1:19 AM EDT [facility] RDW 13.2 11.5 - 14.5 % LAB HEMATOLOGY METHOD 11/06/2024 1:19 AM EDT [facility] MPV 8.7(L) 8.8 - 12.5 fL LAB HEMATOLOGY METHOD 11/06/2024 1:19 AM EDT [facility] nRBC 0.0 <=0.0 per 100 WBCs LAB HEMATOLOGY METHOD 11/06/2024 1:19 AM EDT [facility] Blood Venous blood specimen / Unknown Venipuncture / Unknown 11/06/2024 1:07 AM EDT 11/06/2024 1:12 AM EDT us Nathaly Nowak MD LAB BLOOD ORDERABLES Final Resu lt Performing Organization Address [facility]/ZIP Co de Phone Number [facility] [address] [place] [address] * Gold Top (11/06/2024 12:58 AM EDT) Extra Hold for add-ons 11/06/2024 3:21 AM EDT [facility] Comment:Auto resulted. Blood Venous blood specimen / Unknown 11/06/2024 12:58 AM EDT 11/06/2024 1:13 AM EDT us Nathaly Nowak MD LAB BLOOD ORDERABLES Final Resu lt [facility] [address] [place] [address] * Gold Top (11/06/2024 12:58 AM EDT) Extra Hold for add-ons 11/06/2024 3:21 AM EDT [facility] Comment:Auto resulted. Blood Venous blood specimen / Unknown 11/06/2024 12:58 AM EDT 11/06/2024 1:13 AM EDT us Nathaly Nowak MD LAB BLOOD ORDERABLES Final Resu lt Performing Organization Address City/[facility]/ZIP Co de Phone Number [facility] [address] [place] [address] * Light Green Top (11/06/2024 12:58 AM EDT) Extra Hold for add-ons 11/06/2024 3:21 AM EDT [facility] Comment:Auto resulted. Blood Venous blood specimen / Unknown 11/06/2024 12:58 AM EDT 11/06/2024 1:13 AM EDT us Nathaly Nowak MD LAB BLOOD ORDERABLES Final Resu lt Performing Organization Address [facility] Co de Phone Number [facility] [address] [place] [address] * Light Blue Top (11/06/2024 12:58 AM EDT) Extra Hold for add-ons 11/06/2024 3:21 AM EDT [facility] Comment:Auto resulted. Blood Venous blood specimen / Unknown 11/06/2024 12:58 AM EDT 11/06/2024 1:13 AM EDT us Nathayl Nowak MD LAB BLOOD ORDERABLES Final Resu lt Performing Organization Address [facility]/ZIP Co de Phone Number [facility] [address] [place] [address] * Light Blue Top (11/06/2024 12:58 AM EDT) Extra Hold for add-ons 11/06/2024 3:21 AM EDT [facility] Comment:Auto resulted. Blood Venous blood specimen / Unknown 11/06/2024 12:58 AM EDT 11/06/2024 1:13 AM EDT us Nathaly Nowak MD LAB BLOOD ORDERABLES Final Resu lt Performing Organization Address City/[facility]/ZIP Co de Phone Number [facility] [address] [place] [address] * (ABNORMAL) POCT glucose meter (11/06/2024 12:45 [...] Comment 11/06/2024 12:48 AM EDT [facility] Whipper ID Raj Laird 11/07/19 12:48 AM EDT HEALTHCARE LAB Device ID [id number] 11/06/2024 12:48 AM EDT HEALTH[facility]ARE LAB Specimen Type POC Capillary 11/06/2024 12:48 AM EDT [facility] Blood Capillary blood specimen / Unknown 11/06/2024 12:45 AM EDT 11/06/2024 12:48 AM EDT Nathaly Nowak MD LAB POINT OF CARE TE ST DOCKED DEVICE UNSOLICITED RESULTS Final Result Performing Organization Address City/State/[facility] Co de Phone Number [facility]ARE [facility] [address] [place] [phone] documented in this encounter Visit Diagnoses Diagnosis [...] 10 mL, Intravenous, As needed, Starting on [facility] 11/06/24 at 0031, Until [facility] 11/14/24 at [...] Intravenous, Every 12 hours, First dose on [facility] 11/09/24 at 1515, Until Discontinued, Routine Given 11/14/2024 2:42 PM EDT 10 mL Given 11/14/2024 3:03 AM EDT 10 mL Given 11/13/2024 4:43 PM EDT 10 mL Sodium Hypochlorite (Dakin's (HALF-Strength)) external solution 1 Application Irrigation, Daily, First dose on [facility] 11/09/24 at 0945, Until Discontinued, Routine Given 11/11/2024 8:26 AM EDT 1 Application Given 11/10/2024 8:32 AM EDT 1 Application Given 11/09/2024 10:18 AM EDT 1 Application tamsulosin (Flomax) 24 hr capsule 0.4 mg 0.4 mg, Oral, Every evening, First dose on [facility] 11/06/24 at 1700, Until Discontinued, Routine Given [...] documented as of this encounter Care Teams Center Machine Set Up Operator Relationship Specialty Start Date End Date Asad Victor MD [address] [place] [address] PCP - General 10/07/22 documented as of this encounter
--- OUTSIDE RECORDS SUMMARY | 2024-11-06 10:08 | XMS_ITS | Encounter Summary ---
Author Organization Healthcare Address [address] [place] [address] Care Team Providers Care Competitive Shopper Name Role Phone Asad Victor MD Primary Care Provider + [phone] Reason for Visit * Reason Comments Post-op Problem Wound Check * Auth/Cert (Routine) Specialty Diagnoses / Procedures Referred By Contac t Referred To Contact Diagnoses Wound infection Post-op Vasc Sx wounds - sx on 10/17 at Nathaly Nowak MD [address] [address] Phone: tel: fax: [facility] Emergency Department [address] [place] [address] Phone: tel: Referral ID Status Reason Start Date Expiration Date Visits Re quested Visits Authorized [id number] 1 1 Encounter Details Date Type Department Care Team (Late st Contact Info) Description 11/06/2024 10:08 AM EDT - 11/06/2024 11:38 AM EDT Surgery [facility] OPERATING ROOM [address] [place] [address] Nathaly Nowak MD [id number] [place] [address] Left groin exploration and washout, [...] any time in the past 12 m [facility], were you homeless or [...] drink first t dino in the morning (EYE-BUTTER PRINTER) to steady your nerves or to get rid of a hangover? 0 10/18/2021 CAGE Questionnaire Score 0 022 Utilities Answer Date Recorded In the past 12 months has [email or web address], gas, oil, or water inSelly threatened to shut off services in your [...] Carmona with any questions or concerns at [phone]. It is important that you get your [...] Note Bev Borja 64 y.o. male CSN: [id number] Admission: 11/05/2024 9:45 PM Primary Problem: Wound infection Primary Concrete Layer: Primary Caregiver: Self Assistance Available at Discharge: [...] previous admission in last 30 days Follow-up: [facility] [address] [facility] [address] Go to Infusion Clinic. Please arrive at 11 am daily. [facility] [address] Go to Wound care clinic. First appointment is 1:10 pm. Please call [phone] with scheduling concerns. Discharge Transportation: Transportation Anticipated: medical transport Transportation Home at Discharge: Medical Transport Follow Up Transport: Transportation Needed to Follow up Appoinments: Medical Transport Additional Comments: Patient discharging home. No other SW needs identified. Mariia Monterroso FILM DRYING MACHINE OPERATOR * Discharge Summary - Melecio Echevarria DO - 11/14/2024 12:46 PM EDT Hospitalization Admit Date/Time: 11/05/2024 9:45 PM Admitting Attending: Nathaly Nowak Discharge Date: 11/14/2024 Discharge Attending Physician: Nathaly Nowak MD PCP name and Address: Asad Victor MD (Inactive) [address] [place] [address] / [address] [address] Referring provider name and address: Wade Cowart, DO [address] [place] [address] Chief Concern, Brief History of Present Illness, and Hospital Course Mr. Borja is a 64 y/o male that presented to [facility] on 11/06/2024 for surgical [...] Your Medications These [facility] Infusion Services - GLENDA Solorzano - [address], [place] [address] ertapenem injection micafungin injection Discharge Diagnosis Medical [...] Provider Department Center 11/26/2024 2:[address] [facility] [place] 11/26/2024 2:[address] [facility] 2 [facility] [place] 11/26/2024 3:20 PM Elisabet Schuster PA [facility] 11/29/2024 2:30 PM Oscar Appiah MD [id number] [place] Test Results Pending At Discharge Pending Labs [...] a 64 y/o male that presented to [facility] on 11/06/2024 for surgical [...] portions of the procedure(s) and immediately available [facility] services the entire duration. See resident note for details. * Progress Notes - Mariia Monterroso - 11/13/2024 1:57 PM EDT Case Management Adult Progress Note Bev Borja 64 y.o. male CSN: [id number] Admission: 11/05/2024 9:45 PM Primary Problem: Wound infection Wound vac to be delivered today by at bedside. SW sent referral/orders to [facility] wound care center (fax [phone]) and infusion clinic (fax [phone]). Plan to discharge tomorrow. SW will continue to follow. Mariia Monterroso FILM DRYING MACHINE OPERATOR * Progress Notes - Bianca Knight PharmD - 11/13/2024 12:55 PM EDT Vancomycin therapy has been stopped per ID recommendation. Pharmacist will sign off from dosing and monitoring vancomycin. Please re- consult a pharmacist if more vancomycin is indicated. Bianca Knight PharmD, [facility] * Progress Notes - Ailin Levy MBBS [...] Lumen PICC Antimicrobial Regimen: IV Ertapenem 1g [id number] start date:11/06/2024 Projected End date:12/18/2024 IV Micafungin 150mg [id number] Start date: 11/12/2024 Projected End Date: 12/24/2024 [...] OPAT Team Attn: Dr Kraus Fax #: [phone] Appointments: (Dr Appiah 08/02/2024 at 2.30pm) at: [facility]: [address] [place] [address] (Select Option 3 for IV Antibiotic / PICC line related issues) For questions regarding OPAT prior to discharge, reach out to the OPAT team via [employer] Secure Chat (Group: OPAT Referral Team). For all questions regarding OPAT after discharge should be directed to the OPAT Team at (Select Option 3 for IV Antibiotics/PICC Issues) between 8am-5pm. After 5 pm, or during weekends/ holidays, please call the paging staining machine operator at to reach the on-call [...] from the original note were not included. [facility] Department of Surgery Division of Vascular Surgery Surgery Progress Note 11/13/24 Bev Borja Subjective Subjective: HPI 64yoM PMHx COPD, T2DM, HLD, HTN, RLS, CAD s/p PCI (on Xarelto) s/p pacemaker c/b left SANDIP pseudoaneurysm s/p thrombin injection 09/21/24, CLI s/p left femoral endarterectomy with EIA/SANITATION TRUCK CLEANER stenting 10/17/24, who [facility] 09/21/24, CLI s/p left femoral endarterectomy with EIA/SANITATION TRUCK CLEANER stenting 10/17/24, who [facility] [...] findings. Cardiac Device Check - PRE-OR [facility] EP-Device Clinic: Pre-operative CIED Report Assessment and Sara-Procedural Reommendations: Name: Bev Borja Date: 10/17/2024 : 1960 Age: 64 y.o. Patient has a Outbound Telemarketing Representative: [employer] MINI SHIFTER-PM Remaining battery longevity adequate. Lead integrity test [...] recommendations. Supporting reports can be found in DOCUSYS media file. Micro: Susceptibility data from last [...] Units Date/Time Tissue Culture and Gram Stain [[id number]] (Abnormal) (Susceptibility) Collected: 11/06/24 1134 Order Status: Completed Specimen: Tissue from Other (specify site) Updated: 11/12/24 1334 Culture Moderate Growth 2+ Enterobacter cloacae complex Comment: This isolate has been identified using the FDA Approved CHOOMOGOyper CA System The organism value for this result has been updated. These results have been appended to the previously preliminary verified report. Edited result: Previously reported as Gram Negative Jesus on 11/07/2024 at 1434 EDT. 2+ Streptococcus mitis/oralis group Comment: This isolate has been identified using the FDA Approved MALDI IngagePatientyper CA System The organism value for this result has been updated. These results have been appended to the previously preliminary verified report. 2+ Pasteurella stomatis Comment: This result was determined by MALDI tof mass spectrometry using the Anchor Intelligence database and is for research use only. The organism value for this result has been updated. These results have been appended to the previously preliminary verified report. Gram Stain Result Few Gram negative rods Moderate Polymorphonuclear leukocytes Few Gram positive cocci in pairs Narrative: ElizabethD Hunter lAberts requests penicillin, ceftriaxone and vancomycin on Streptococcus [...] stewardship team. Comprehensive GI Panel by PCR [[id number]] (Normal) Collected: 11/12/24 0950 Order Status: Completed [...] if clinically indicated. Clostridiodes (Clostridium) difficile PCR [[id number]] (Normal) Collected: 11/12/24 0950 Order Status: Completed [...] high complexity clinical laboratory testing. 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 These results have been appended to the previously preliminary verified report. Edited result: Previously reported as Yeast on 11/11/2024 at 1317 EDT. ISIDRO No fungal elements seen Additional Susceptibilities and/or Identification [[id number]] Collected: 11/11/24 1240 Order Status: Completed Specimen: Tissue from Wound (specify site): Additional Susceptibilities and/or Identification [[id number]] Collected: 11/11/24 1238 Order Status: Completed Specimen: Tissue from Wound (specify site): Additional Susceptibilities and/or Identification [[id number]] Collected: 11/11/24 1237 Order Status: Completed Specimen: Tissue from Wound (specify site): AFB Culture, Non Respiratory Source and Acid Fast Stain [[id number]] Collected: 11/06/24 1134 Order Status: Completed Specimen: Tissue from Other (specify site) Updated: 11/11/24 0938 AFB Culture No Mycobacterial Growth <1 Week Acid Fast Stain No acid fast bacilli seen Blood Culture (Aerobic/Anaerobet Set) [[id number]] Collected: 11/06/24106 Order Status: Completed Specimen: Blood from AC, Left Updated: 11/11/24 0301 Culture No growth at day 5 Blood Culture (Aerobic/Anaerobet Set) [[id number]] Collected: 11/06/24106 Order Status: Completed Specimen: Blood [...] OSH. [facility] [...] to stay a facility, plan for [facility] daily IV abx. Plan for ID [...] tablet 1,000 mg 1,000 mg Oral q6h [facility] Anthony Reyes MD 1,000 mg at [...] Prevent or Manage Pain Flowsheets (Taken 11/11/2024 3026 by Jonathan Vale RN) Sensory Stimulation Regulation: care clustered lighting decreased quiet environment promoted Medication Review/Management: medications reviewed * Consults - Anabel Ovalle RD - 11/12/2024 9:59 AM EDT Adult Nutrition Evaluation Note Bev Borja 64 y.o. male CSN: [id number] Room/Bed 682/682B Nutrition evaluation type: assessment Reason for evaluation: LOS Hospital course: 64 y.o. male with PMHx significant for COPD, CAD s/p PCI (on Xarelto) s/p pacemaker c/b left SANDIP pseudoaneurysm s/p thrombin injection 09/21/24, chronic limb ischemia s/p left femoralendarterectomy with external iliac/common femoral artery stenting 10/17/24, T2DM, HLD, HTN, RLS who presented to the [facility] on 11/05/2024 with problems with [...] (Room air) O2 Delivery Method: Face tent Holabird Coma Scale Score: 15 Loi Scale Score: [...] (194 lb 3.6 oz) BMI (Calculated): 30.41 Radiant Body Weight (kg): 67.3 Percent Radiant Body Weight: 131 Adjusted Body Weight (kg): [...] oz) Estimated Needs: Kcal/ K-30 Kcal Provided: 7738-6985 Kcal Needs Based On: Adjusted weight Gm Protein/ Kg : 1.2-1.5 Protein Provided: 87-108 Protein Needs Based On: Adjusted weight Metabolic Cart Study Results: Current Nutrition Intake: Diet Order: Adult Diet Diet Texture: Regular Adult Carbohydrate Restriction: Consistent CHO 1 (8322-2454 Jatinder, 65 g/meal) Percent Meals Eaten (%): avg 63% x 6 emals Diet Experience and Nutrition History: Diet Education Provided: Will monitor Pertinent home medications: clopidogrel, docusate sodium, Lantus, Humalog, lisinopril, metoprolol tartrate, pravastatin, rivaroxaban, ropinirole, tamsulosin Presybeterian needs: Nutrition Focused Physical Exam: Physical exam [...] ENDARTERECTOMY N/A 2017 Endarterectomy Carotid Artery from [facility] CORONARY ANGIOPLASTY Left Coronary Angiography With Concomitant Left Heart Catheterization from [facility] CORONARY ARTERY BYPASS GRAFT N/A 2018 3V ELBOW SURGERY Right ENDARTERECTOMY Left 10/17/2024 common/SFA/Profunda thromboendarterectomy, EIA/SANITATION TRUCK CLEANER stent HERNIA REPAIR KNEE ARTHROSCOPY Left VASCULAR SURGERY Left 09/21/2024 SANITATION TRUCK CLEANER pseudoaneurym injection [3] Social History Tobacco Use [...] 09/21/24, CLI s/p left femoral endarterectomy with EIA/SANITATION TRUCK CLEANER stenting 10/17/24, who [facility] [...] 09/21/24, CLI s/p left femoral endarterectomy with EIA/SANITATION TRUCK CLEANER stenting 10/17/24, who [facility] [...] findings. Cardiac Device Check - PRE-OR [facility] EP-Device Clinic: Pre-operative CIED Report Assessment and Sara-Procedural Reommendations: Name: Bev Borja Date: 10/17/2024 : 1960 Age: 64 y.o. 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 Lead integrity test [...] recommendations. Supporting reports can be found in DOCUSYS media file. Micro: Susceptibility data from last [...] Units Date/Time Tissue Culture and Gram Stain [[id number]] (Abnormal) (Susceptibility) Collected: 11/06/24 1134 Order Status: Completed Specimen: Tissue from Other (specify site) Updated: 11/12/24 1334 Culture Moderate Growth 2+ Enterobacter cloacae complex Comment: This isolate has been identified using the FDA Approved The Luxury Cluber CA System The organism value for this result has been updated. These results have been appended to the previously preliminary verified report. Edited result: Previously reported as Gram Negative Jesus on 11/07/2024 at 1434 EDT. 2+ Streptococcus mitis/oralis group Comment: This isolate has been identified using the FDA Approved The Luxury Cluber CA System The organism value for this result has been updated. These results have been appended to the previously preliminary verified report. 2+ Pasteurella stomatis Comment: This result was determined by MALDI tof mass spectrometry using the Anchor Intelligence database and is for research use only. [...] stewardship team. Comprehensive GI Panel by PCR [[id number]] (Normal) Collected: 11/12/24 0950 Order Status: Completed [...] if clinically indicated. Clostridiodes (Clostridium) difficile PCR [[id number]] (Normal) Collected: 11/12/24 0950 Order Status: Completed [...] high complexity clinical laboratory testing. Anaerobic Culture [[id number]] Collected: 11/06/24 1128 Order Status: Completed Specimen: Swab from Other (specify site) Updated: 11/12/24 1118 Culture No growth at day 4 Fungal Culture, Tissue and ISIDRO [[id number]] (Abnormal) Collected: 11/06/24 1134 Order Status: Completed Specimen: Tissue from Other (specify site) Updated: 11/12/24 1033 Culture Reading Mycological 4 Weeks Rare Delta Sana parapsilosis Comment: This isolate has been identified using the FDA Approved CHOOMOGOyper CA System The organism value for this result has been updated. These results have been appended to the previously preliminary verified report. Edited result: Previously reported as Yeast on 11/11/2024 at 1317 EDT. ISIDRO No fungal elements seen Additional Susceptibilities and/or Identification [[id number]] Collected: 11/11/24 1240 Order Status: Completed Specimen: Tissue from Wound (specify site): Additional Susceptibilities and/or Identification [[id number]] Collected: 11/11/24 1238 Order Status: Completed Specimen: Tissue from Wound (specify site): Additional Susceptibilities and/or Identification [[id number]] Collected: 11/11/24 1237 Order Status: Completed Specimen: Tissue from Wound (specify site): AFB Culture, Non Respiratory Source and Acid Fast Stain [[id number]] Collected: 11/06/24 1134 Order Status: Completed Specimen: Tissue from Other (specify site) Updated: 11/11/24 0938 AFB Culture No Mycobacterial Growth <1 Week Acid Fast Stain No acid fast bacilli seen Blood Culture (Aerobic/Anaerobet Set) [[id number]] Collected: 11/06/24106 Order Status: Completed Specimen: Blood from AC, Left Updated: 11/11/24 0301 Culture No growth at day 5 Blood Culture (Aerobic/Anaerobet Set) [[id number]] Collected: 11/06/24106 Order Status: Completed Specimen: Blood [...] 11/06, pt went to the [facility] vascular surgery for left groin exploration [...] want to stay a facility, plan for [facility] daily IV abx. Plan for [...] tablet 1,000 mg 1,000 mg Oral q6h [facility] Anthony Reyes MD 1,000 mg at 11/12/24 1356 aspirin chewable tablet 81 mg 81 mg Oral Daily Reid Dnaiels MD 81 mg at 11/12/24 0938 cefepime (Maxipime) 2 g in sodium chloride 0.9% 100 mL IVPB (vial adapter required) 2 g [id number] Reid Daniels MD 36.7 mL/hr at 11/12/24 [...] PM Anthony Reyes MD 0.4 mg at [id number] Vancomycin HCl in NaCl (Vancocin) IVPB 1,000 [...] send him home on micafungin as Rare Delta Sana parapsilosis grew and we do not [...] portions of the procedure(s) and immediately available [facility] services the entire duration. See resident note for details. * Progress Notes - Mariia Monterroso - 11/11/2024 1:10 PM EDT Case Management Adult Progress Note Bev Borja 64 y.o. male CSN: [id number] Admission: 11/05/2024 9:45 PM Primary Problem: Wound infection Patient refusing inpatient placement for IV abx. [facility] infusion clinic can provide treatment. Face sheet, IV abx orders, and order for PICC care/labs/dressing changes need to be faxed to [phone]. Voicemail left with wound care clinic. Wound vac approved per , delivery pending. Crysll continue to follow. Mariia Monterroso FILM DRYING MACHINE OPERATOR * Progress Notes - Dotty Sethi [...] findings. Cardiac Device Check - PRE-OR [facility] EP-Device Clinic: Pre-operative CIED Report Assessment and Sara-Procedural Reommendations: Name: Bev Borja Date: 10/17/2024 : 1960 Age: 64 y.o. Patient has a Outbound Telemarketing Representative: [employer] MINI SHIFTER-PM Remaining battery longevity adequate. Lead integrity test [...] recommendations. Supporting reports can be found in DOCUSYS media file. Micro: Susceptibility data from last [...] Non Respiratory Source and Acid Fast Stain [[id number]] Collected: 11/06/24 1134 Order Status: Completed Specimen: Tissue from Other (specify site) Updated: 11/11/24 0938 AFB Culture No Mycobacterial Growth <1 Week Acid Fast Stain No acid fast bacilli seen Blood Culture (Aerobic/Anaerobet Set) [[id number]] Collected: 11/06/24106 Order Status: Completed Specimen: Blood from AC, Left Updated: 11/11/24 0301 Culture No growth at day 5 Blood Culture (Aerobic/Anaerobet Set) [[id number]] Collected: 11/06/24 010 Order Status: Completed Specimen: Blood from Hand, Right Updated: 11/11/24 0249 Culture No growth at day 5 Anaerobic Culture [[id number]] Collected: 11/06/24 1128 Order Status: Completed Specimen: Swab from Other (specify site) Updated: 11/10/24 1441 Culture No growth at day 4 Routine Culture and Gram Stain [[id number]] Collected: 11/06/24 1128 Order Status: Completed Specimen: Swab from Other (specify site) Updated: 11/10/24 1124 Culture No growth at day 4 Gram Stain Result No organisms seen No polymorphonuclear leukocytes seen Anaerobic Culture [[id number]] (Abnormal) Collected: 11/06/24 112 Order Status: Completed Specimen: Swab from Other (specify site) Updated: 11/10/24 0718 Culture No anaerobes isolated Mixed skin clifton Comment: The organism value for this result has been updated. These results have been appended to the previously preliminary verified report. Narrative: Mixed Skin Clifton includes Streptococcus mitis/oralis group and Staphylococcus Pseudintermedius Anaerobic Culture [[id number]] (Abnormal) Collected: 11/06/24 1134 Order Status: Completed [...] OSH. [facility] [...] mL IVPB (vial adapter required) 2 g [id number] Reid Daniels MD 36.7 mL/hr at 11/11/24 [...] 09/21/24, CLI s/p left femoral endarterectomy with EIA/SANITATION TRUCK CLEANER stenting 10/17/24, who [facility] [...] 09/21/24, CLI s/p left femoral endarterectomy with EIA/SANITATION TRUCK CLEANER stenting 10/17/24, who [facility] [...] Edited by: Reid Daniels MD at 11/11/2024 0871 Dispo: Continue Current Level of Care Reid [...] to follow, Submitted by: Kalpesh Lord PharmD, [facility] 11/10/2024 12:45 PM * Care Plan - [...] 09/21/24, CLI s/p left femoral endarterectomy with EIA/SANITATION TRUCK CLEANER stenting 10/17/24, [facility] [...] 09/21/24, CLI s/p left femoral endarterectomy with EIA/SANITATION TRUCK CLEANER stenting 10/17/24, who [facility] [...] Barraza RN Authorized by: Nathaly Nowak MD [place] Protocol: Verbal consent obtained?: Yes Written consent [...] selection rationale: Left pacemaker Catheter Lot #: [id number] Catheter director experimental medicine: [employer] Catheter placed: Single lumen Catheter size: 4 [...] 09/21/24, CLI s/p left femoral endarterectomy with EIA/SANITATION TRUCK CLEANER stenting 10/17/24, who [facility] [...] 09/21/24, CLI s/p left femoral endarterectomy with EIA/SANITATION TRUCK CLEANER stenting 10/17/24, who [facility] [...] Level of Care [place] M4 student [facility] Cosigned by Nathaly Nowak MD at 11/11/2024 [...] PT session. Patient reports he went to [facility] 12th floor via w/c yesterday to [...] Mobility: Ambulatory- community (was utilizing scooter at [place] since discharge) Mobility [place]: Independent gait with device History of Falls: [...] Mobility Bed Mobility Exam: Scooting/Bridging Level of [place]: Modified independence Bed Mobility Exam: Supine to Sit Level of [place]: Modified [place] Transfers Transfer Exam: Sit to stand Level of [place]: Modified independence Assistive Device: Rollator Transfer Exam: Stand to Sit Level of [place]: Modified independence Assistive Device: Rollator Ambulation Device: [...] maintain/improve functional mobility and endurance. Standardized Assessments [facility] 6[facility]Clic[facility] Mobility Assessment Difficulty patient has [...] 3-5 steps with a railing?: A little [facility] Mobility Assessment Total : 22 [...] Mobility Ambulatory- community (was utilizing scooter at [place] since discharge) Mobility [place] Independent gait with device History of Falls [...] distal to knee) BED MOBILITY Level of [place] Physical/Non-physical Assist Adaptive Equipment Utilized Scooting/ Bridging Modified independence Supine to Sit Modified [place] TRANSFERS Level of [place] Physical/Non-physical Assist Adaptive Equipment Utilized Sit to Stand Modified independence Rollator Stand to sit Modified independence Rollator Toilet Transfer Modified independence Grab bar FUNCTIONAL MOBILITY Ambulation Modified independent 200ft x2 with seated rest break between bouts; RPE 5-7/10. Cues forsafety with rollator brakes. Rollator Comments BALANCE Postural Appearance Posture: Within Functional Limits Level of [place] Balance Support Static Sit Independent Feet supported Dynamic Sit Independent Feet supported Static Stand Independent Right upper extremity support, Left upper extremity support (via rollator) Dynamic Stand Independent Right upper extremity support, Left upper extremity support (via rollator) STANDARDIZED ASSESSMENTS [facility] 6-Click Daily Activities [...] needed areas of treatment space. Level of [place] Interventions Grooming Modified independent Standing sinkside Pt [...] Note Bev Borja 64 y.o. male CSN: [id number] Admission: 11/05/2024 9:45 PM Primary Problem: Wound [...] follow and assist as needed. Mariia Monterroso FILM DRYING MACHINE OPERATOR * Progress Notes - Bianca Knight [...] to follow, Submitted by: Bianca Knight, ElizabethD, [facility] 11/08/2024 11:15 AM * Progress [...] 09/21/24, CLI s/p left femoral endarterectomy with EIA/SANITATION TRUCK CLEANER stenting 10/17/24, [facility] completed 10/19 Pseudoaneurysm of left femoral artery ([facility]) COPD (chronic obstructive pulmonary disease) ([facility]) Overview Signed 10/18/2021 7:30 PM by Gallo Gallardo MD Not on home inhalers A-fib ([facility]) Overview Addendum 10/19/2021 10:39 AM by Giovanna Junior APRN Hold anticoagulation Metoprolol restarted BPH (benign prostatic hyperplasia) Overview Addendum 10/19/2021 10:41 AM by Giovanna Junior APRN Flomax restarted Subarachnoid hemorrhage ([facility]) Overview Addendum 10/20/2021 8:23 AM by Giovanna Junior APRN Left frontal, right occipital NSGY consulted - Repeat CTH showing slight worsening of tSAH - no need for further imaging, will continue to follow clinically 10/20: spoke with NSGY via phone and stated to hold ASA and Xarelto for 2 weeks Closed compression fracture of L3 lumbar vertebra, initial encounter ([facility]) Overview Signed 10/18/2021 7:35 PM by Gallo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 8.1(L) 8.9 - 10.2 mg/dL 11/13/2024 7:16 AM EDT [facility] eGFRcr 103.2 mL/min/1.7 3m*2 11/13/2024 7:16 AM EDT [facility] Comment:Reported eGFRcr in m L/min/1.73m2 is based the CKD-EPI 2020 equation that does not use a race coefficient. Blood Venous blood specimen / Unknown Venipuncture / Unknown 11/13/2024 6:37 AM EDT 11/13/2024 6:44 AM EDT us Nathaly Nowak MD LAB BLOOD ORDERABLES Final Resu lt [facility] [address] [place] [address] * (ABNORMAL) POCT glucose meter (11/12/2024 8:27 [...] Comment 11/12/2024 8:29 PM EDT [facility] Finance Broker ID Nelda Gerber 11/13/19 8:29 PM EDT [facility] Device ID [id number] 11/12/2024 8:29 PM EDT [facility] Specimen Type POC Capillary 11/12/2024 8:29 PM EDT [facility] Blood Capillary blood specimen / Unknown 11/12/2024 8:27 PM EDT 11/12/2024 8:29 PM EDT Nathaly Nowak MD LAB POINT OF CARE TE ST DOCKED DEVICE UNSOLICITED RESULTS Final Result Performing Organization Address City/[facility]/ZIP Co de Phone Number [facility] [address] [place] [address] * (ABNORMAL) POCT glucose meter (11/12/2024 5:08 [...] Comment 11/12/2024 5:10 PM EDT [facility] Finance Broker ID Wade Feliciano 5:10 PM EDT [facility] Device ID [id number] 11/12/2024 5:10 PM EDT [facility] Specimen Type POC Capillary 11/12/2024 5:10 PM EDT [facility] Blood Capillary blood specimen / Unknown 11/12/2024 5:08 PM EDT 11/12/2024 5:10 PM EDT us Nathaly Nowak MD LAB POINT OF CARE TE ST DOCKED DEVICE UNSOLICITED RESULTS Final Result [facility] [address] [place] [address] * (ABNORMAL) POCT glucose meter (11/12/2024 12:36 [...] Comment 11/12/2024 12:38 PM EDT [facility] Finance Broker ID Wade Feliciano 12:38 PM EDT [facility] Device ID [id number] 11/12/2024 12:38 PM EDT [facility] Specimen Type POC Capillary 11/12/2024 12:38 PM EDT LAB Blood Capillary blood specimen / Unknown 11/12/2024 12:36 PM EDT 11/12/2024 12:38 PM EDT us Nathaly Nowak MD LAB POINT OF CARE TE ST DOCKED DEVICE UNSOLICITED RESULTS Final Result Performing Organization Address [facility] Co de Phone Number LAB [address] [place] [address] * Clostridiodes (Clostridium) difficile PCR (11/12/2024 9:50 AM EDT) C difficile PCR toxin B gene DNA Result Not Detected Not Detected 11/12/2024 11:54 AM EDT [facility] Stool Rectum structure / Unknown Non-blood Collection / Unknown 11/12/2024 9:50 AM EDT 11/12/2024 10:04 AM EDT Narrative [facility] - 11/12/2024 11:54 AM EDT [...] LAM Final Result Performing Organization Address City/[facility]/ZIP Co de Phone Number [facility] [address] [place] [address] * Comprehensive GI Panel by PCR (11/12/2024 9:50 AM EDT) [facility] Campylobacter PCR Result Not Detected Not Detected 11/12/2024 2:47 PM EDT [facility] Plesiomonas shigelloides PCR Result Not Detected Not Detected 11/12/2024 2:47 PM EDT [facility] Salmonella PCR Result Not Detected Not Detected 11/12/2024 2:47 PM EDT [facility] Vibrio species PCR Result Not Detected Not Detected 11/12/2024 2:47 PM EDT [facility] Vibrio cholerae PCR Result Not Detected Not Detected 11/12/2024 2:47 PM EDT [facility] Yersinia enterocolitica PCR Result Not Detected Not Detected 11/12/2024 2:47 PM EDT [facility] Enteroaggregative E. coli (EAEC) PCR Result Not Detected Not Detected 11/12/2024 2:47 PM EDT [facility] Enteropathogenic E. coli (EPEC) PCR Result Not Detected Not Detected 11/12/2024 2:47 PM EDT [facility] Enterotoxigenic E. coli (ETEC) lt/st PCR Result Not Detected Not Detected 11/12/2024 2:47 PM EDT [facility] Shiga-like Toxin-Producing E.coli (STEC) stx1/stx2 PCR Resu Not Detected Not Detected 11/12/2024 2:47 PM EDT [facility] E coli 0157 PCR Result Not Detected Not Detected 11/12/2024 2:47 PM EDT [facility] Shigella/Enteroinvas tam E. coli (EIEC) PCR Result Not Detected Not Detected 11/12/2024 2:47 PM EDT [facility] Cryptosporidium PCR Result Not Detected Not Detected 11/12/2024 2:47 PM EDT [facility] Cyclospora cayetanensis PCR Result Not Detected Not Detected 11/12/2024 2:47 PM EDT [facility] Entamoeba histolytica PCR Result Not Detected Not Detected 11/12/2024 2:47 PM EDT [facility] Giardia duodenalis (aka Giardia lamblia) PCR Result Not Detected Not Detected 11/12/2024 2:47 PM EDT [facility] Adenovirus F 40/41 PCR Result Not Detected Not Detected 11/12/2024 2:47 PM EDT [facility] Astrovirus PCR Result Not Detected Not Detected 11/12/2024 2:47 PM EDT [facility] Norovirus GI/GII PCR Result Not Detected Not Detected 11/12/2024 2:47 PM EDT [facility] Rotavirus A PCR Result Not Detected Not Detected 11/12/2024 2:47 PM EDT [facility] Sapovirus PCR Result Not Detected Not Detected 11/12/2024 2:47 PM EDT [facility] Stool Rectum structure / Unknown Non-blood Collection / Unknown 11/12/2024 9:50 AM EDT 11/12/2024 10:04 AM EDT Narrative [facility] - 11/12/2024 2:47 PM EDT [...] MICROBIOLOGY - GENERAL ATIYA FRITZ Final Result [facility] [address] [place] [address] * C-reactive protein (11/12/2024 9:48 AM EDT) CRP, Plasma <3.0 <=8.0 mg/L 11/12/2024 10:28 AM EDT [facility] Blood Venous blood specimen / Unknown Venipuncture / Unknown 11/12/2024 9:48 AM EDT 11/12/2024 9:59 AM EDT Narrative [facility] - 11/12/2024 10:28 AM EDT This CRP test is appropriate for assessment of infection, systemic inflammation and/or tissue injury. To assess cardiovascular disease risk order high sensitivity CRP (CRPH). Nathaly Nowak MD LAB BLOOD ORDERABLES Final Resu lt [facility] [address] [place] [address] * (ABNORMAL) POCT glucose meter (11/12/2024 8:20 [...] Comment 11/12/2024 8:21 AM EDT [facility] Finance Broker ID BradenWade 8:21 AM EDT [facility] LAB Device ID [id number] 11/12/2024 8:21 AM EDT [facility] Specimen Type POC Capillary 11/12/2024 8:21 AM EDT [facility] Blood Capillary blood specimen / Unknown 11/12/2024 8:20 AM EDT 11/12/2024 8:21 AM EDT us Nathaly Nowak MD LAB POINT OF CARE TE ST DOCKED DEVICE UNSOLICITED RESULTS Final Result Performing Organization Address City/[facility]/ZIP Co de Phone Number LAB [address] [place] [address] * (ABNORMAL) POCT glucose meter (11/11/2024 8:18 [...] Comment 11/11/2024 8:20 PM EDT [facility] Finance Broker ID Nelda Gerber 11/12/19 8:20 PM EDT [facility] LAB Device ID [id number] 11/11/2024 8:20 PM EDT [facility] Specimen Type POC Capillary 11/11/2024 8:20 PM EDT [facility] Blood Capillary blood specimen / Unknown 11/11/2024 8:18 PM EDT 11/11/2024 8:20 PM EDT Nathaly Nowak MD LAB POINT OF CARE TE ST DOCKED DEVICE UNSOLICITED RESULTS Final Result Performing Organization Address City/State/[facility] Co de Phone Number [facility] [address] [place] [address] * (ABNORMAL) POCT glucose meter (11/11/2024 5:59 PM EDT) [facility] POCT Glucose 147(H) 74 - 99 mg/dL [...] Comment 11/11/2024 6:01 PM EDT [facility] Finance Broker ID Wade Feliciano Tobias 6:01 PM EDT [facility] Device ID [id number] 11/11/2024 6:01 PM EDT [facility] Specimen Type POC Capillary 11/11/2024 6:01 PM EDT [facility] Blood Capillary blood specimen / Unknown 11/11/2024 5:59 PM EDT 11/11/2024 6:01 PM EDT Nathaly Nowak MD LAB POINT OF CARE TE ST DOCKED DEVICE UNSOLICITED RESULTS Final Result Performing Organization Address [facility] de Phone Number [facility] [address] [place] [address] * POCT glucose meter (11/11/2024 5:20 PM [...] Comment 11/11/2024 5:22 PM EDT [facility] Finance Broker ID Wade Feliciano Tobias 5:22 PM EDT [facility] Device ID [id number] 11/11/2024 5:22 PM EDT [facility] Specimen Type POC Capillary 11/11/2024 5:22 PM EDT [facility] Blood Capillary blood specimen / Unknown 11/11/2024 5:20 PM EDT 11/11/2024 5:22 PM EDT us Nathaly Nowak MD LAB POINT OF CARE TE ST DOCKED DEVICE UNSOLICITED RESULTS Final Result Performing Organization Address City/[facility] de Phone Number [facility] [address] [place] [address] * CT NEGATIVE PRESSURE WOUND THERAPY DME >50 SQ [...] for testing. Comment 11/11/2024 12:10 PM EDT LAB Finance Broker ID Wade Feliciano 12:10 PM EDT [facility] Device ID [id number] 11/11/2024 12:10 PM EDT LAB Specimen Type POC Capillary 11/11/2024 12:10 PM EDT LAB Blood Capillary blood specimen / Unknown 11/11/2024 12:08 PM EDT 11/11/2024 12:10 PM EDT Nathaly Nowak MD LAB POINT OF CARE TE ST DOCKED DEVICE UNSOLICITED RESULTS Final Result [facility] [address] [place] [address] * (ABNORMAL) POCT glucose meter (11/11/2024 9:08 [...] Comment 11/11/2024 9:09 AM EDT [facility] Finance Broker ID Braden Wade Collado 9:09 AM EDT [facility] Device ID [id number] 11/11/2024 9:09 AM EDT [facility] Specimen Type POC Capillary 11/11/2024 9:09 AM EDT [facility] Blood Capillary blood specimen / Unknown 11/11/2024 9:08 AM EDT 11/11/2024 9:09 AM EDT Nathaly Nowak MD LAB POINT OF CARE TE ST DOCKED DEVICE UNSOLICITED RESULTS Final Result Performing Organization Address City/State/[facility] Co de Phone Number [facility] [address] [place] [address] * POCT glucose meter (11/11/2024 8:27 AM EDT) [facility] POCT Glucose 87 74 - 99 mg/dL [...] Comment 11/11/2024 8:28 AM EDT [facility] Finance Broker ID BradenWade 8:28 AM EDT [facility] Device ID [id number] 11/11/2024 8:28 AM EDT [facility] Specimen Type POC Capillary 11/11/2024 8:28 AM EDT [facility] Blood Capillary blood specimen / Unknown 11/11/2024 8:27 AM EDT 11/11/2024 8:28 AM EDT Nathaly Nowak MD LAB POINT OF CARE TE ST DOCKED DEVICE UNSOLICITED RESULTS Final Result Performing Organization Address City/[facility]/ZIP Co de Phone Number LAB [address] [place] [address] * (ABNORMAL) Basic Metabolic Panel, Plasma (11/11/2024 1:12 AM EDT) Glucose, Plasma 122(H) 74 - 99 mg/dL 11/11/2024 1:12 AM EDT [facility] BUN, Plasma 10 8 - 23 mg/dL 11/11/2024 1:12 AM EDT [facility] Creatinine, Plasma 0.82 0.70 - 1.20 mg/dL 11/11/2024 1:12 AM EDT [facility] BUN/Creatinine Ratio 12 11/11/2024 1:12 AM EDT [facility] Sodium, Plasma 137 136 - 145 mmol/L 11/11/2024 1:12 AM EDT [facility] Potassium, Plasma 3.9 3.6 - 4.9 mmol/L 11/11/2024 1:12 AM EDT [facility] Chloride, Plasma 110(H) 97 - 107 mmol/L 11/11/2024 1:12 AM EDT [facility] CO2, Plasma 20(L) 22 - 29 mmol/L 11/11/2024 1:12 AM EDT [facility] Anion Gap 7 6 - 16 mmol/L 11/11/2024 1:12 AM EDT [facility] Total Calcium, Plasma 7.6(L) 8.9 - 10.2 mg/dL 11/11/2024 1:12 AM EDT [facility] eGFRcr 97.5 mL/min/1.7 3m*2 11/11/2024 1:12 AM EDT [facility] Comment:Reported eGFRcr in m L/min/1.73m2 is based the CKD-EPI 2020 equation that does not use a race coefficient. Blood Venous blood specimen / Unknown 11/11/2024 12:42 AM EDT us Nathaly Nowak MD LAB BLOOD ORDERABLES Final Resu lt Performing Organization Address City/[facility]/ZIP Co de Phone Number [facility] [address] [place] [address] * (ABNORMAL) CBC W/O Differential (11/11/2024 12:56 AM EDT) WBC Count 11.83(H) 3.70 - 10.30 10*3/uL LAB HEMATOLOGY METHOD 11/11/2024 12:56 AM EDT [facility] RBC Count 2.97(L) 4.60 - 6.10 10*6/uL LAB HEMATOLOGY METHOD 11/11/2024 12:56 AM EDT [facility] HGB 8.9(L) 13.7 - 17.5 g/dL LAB HEMATOLOGY METHOD 11/11/2024 12:56 AM EDT [facility] HCT 27.2(L) 40.0 - 51.0 % LAB HEMATOLOGY METHOD 11/11/2024 12:56 AM EDT [facility] Platelet Count 444(H) 155 - 369 10*3/uL LAB HEMATOLOGY METHOD 11/11/2024 12:56 AM EDT [facility] MCV 92 79 - 98 fL LAB HEMATOLOGY METHOD 11/11/2024 12:56 AM EDT [facility] MCH 30.0 26.0 - 32.0 pg LAB HEMATOLOGY METHOD 11/11/2024 12:56 AM EDT [facility] MCHC 32.7 30.7 - 35.5 g/dL LAB HEMATOLOGY METHOD 11/11/2024 12:56 AM EDT [facility] RDW 13.3 11.5 - 14.5 % LAB HEMATOLOGY METHOD 11/11/2024 12:56 AM EDT [facility] MPV 9.0 8.8 - 12.5 fL LAB HEMATOLOGY METHOD 11/11/2024 12:56 AM EDT [facility] nRBC 0.0 <=0.0 per 100 WBCs LAB HEMATOLOGY METHOD 11/11/2024 12:56 AM EDT [facility] Blood Venous blood specimen / Unknown 11/11/2024 12:42 AM EDT us Nathaly Nowak MD LAB BLOOD ORDERABLES Final Resu lt [facility] [address] [place] [address] * (ABNORMAL) POCT glucose meter (11/10/2024 8:25 PM EDT) [facility] POCT Glucose 144(H) 74 - 99 mg/dL [...] 11/10/2024 8:28 PM EDT [facility] Finance Broker ID Nelda Gerber 11/11/19 8:28 PM EDT [facility] Device ID [id number] 11/10/2024 8:28 PM EDT [facility] Specimen Type POC Capillary 11/10/2024 8:28 PM EDT [facility] Blood Capillary blood specimen / Unknown 11/10/2024 8:25 PM EDT 11/10/2024 8:28 PM EDT us Nathaly Nowak MD LAB POINT OF CARE TE ST DOCKED DEVICE UNSOLICITED RESULTS Final Result [facility] [address] [place] [address] * (ABNORMAL) POCT glucose meter (11/10/2024 4:45 PM EDT) [facility] POCT Glucose 155(H) 74 - 99 mg/dL [...] 11/10/2024 4:47 PM EDT [facility] Finance Broker ID Esperanza Parks 11/10/2024 4:47 PM EDT [facility] Device ID [id number] 11/10/2024 4:47 PM EDT [facility] Specimen Type POC Capillary 11/10/2024 4:47 PM EDT [facility] Blood Capillary blood specimen / Unknown 11/10/2024 4:45 PM EDT 11/10/2024 4:47 PM EDT Nathaly Nowak MD LAB POINT OF CARE TE ST DOCKED DEVICE UNSOLICITED RESULTS Final Result Performing Organization Address City/[facility] Co de Phone Number [facility] [address] [place] [address] * (ABNORMAL) POCT glucose meter (11/10/2024 12:13 [...] Comment 11/10/2024 12:14 PM EDT [facility] Finance Broker ID Esperanza Parks 11/10/2024 12:14 PM EDT [facility] LAB Device ID [id number] 11/10/2024 12:14 PM EDT [facility] Specimen Type POC Capillary 11/10/2024 12:14 PM EDT [facility] Blood Capillary blood specimen / Unknown 11/10/2024 12:13 PM EDT 11/10/2024 12:14 PM EDT us Nathaly Nowak MD LAB POINT OF CARE TE ST DOCKED DEVICE UNSOLICITED RESULTS Final Result Performing Organization Address City/[facility] Co de Phone Number [facility] [address] [place] [address] * Vancomycin, Peak, Plasma Please draw ~2 hours after 0800 dose of vancomycin finishes infusing. Consider obtaining level via peripheral stick. If peripheral stick is not feasible, please ensure that line is flushed well prior to drawing level. Than... (11/10/2024 10:56 AM EDT) [facility] Vancomycin, Peak, Plasma 23.8 20.0 - 40.0 ug/mL 11/10/2024 11:25 AM EDT [facility] Blood Venous blood specimen / Unknown Venipuncture / Unknown 11/10/2024 10:56 AM EDT 11/10/2024 11:00 AM EDT Narrative [facility] - 11/10/2024 11:25 AM EDT Therapeutic Peak level: 20-40ug/mL Supra-therapeutic Peak level: >40 ug/mL us Abigail Seay MD LAB BLOOD ORDERABLES Final Res ult Performing Organization Address [facility] Co de Phone Number [facility] [address] [place] [address] * (ABNORMAL) POCT glucose meter (11/10/2024 8:03 AM EDT) [facility] POCT Glucose 174(H) 74 - 99 mg/dL [...] Comment 11/10/2024 8:04 AM EDT [facility] Finance Broker ID Esperanza Parks 11/10/2024 8:04 AM EDT [facility] LAB Device ID [id number] 11/10/2024 8:04 AM EDT [facility] Specimen Type POC Capillary 11/10/2024 8:04 AM EDT LAB Blood Capillary blood specimen / Unknown 11/10/2024 8:03 AM EDT 11/10/2024 8:04 AM EDT us Nathaly Nowak MD LAB POINT OF CARE TE ST DOCKED DEVICE UNSOLICITED RESULTS Final Result Performing Organization Address City/[facility]/ZIP Co de Phone Number LAB [address] [place] [address] * Vancomycin, Trough, Plasma Please draw ~30 minutes prior to dose due at 0800 on 11/10. Please do NOThold dose awaiting level to return. Consider obtaining level via peripheral stick. If peripheral stick is not feasible, please ensure that line is... (11/10/2024 7:27 AM EDT) Vancomycin, Trough, Plasma 16.2 10.0 - 20.0 ug/mL 11/10/2024 8:24 AM EDT [facility] Blood Venous blood specimen / Unknown Venipuncture / Unknown 11/10/2024 7:27 AM EDT 11/10/2024 7:51 AM EDT Narrative [facility] - 11/10/2024 8:24 AM EDT Therapeutic Trough level: 10-20ug/mL Supra-therapeutic Trough level: >20 ug/mL us Abigail Seay MD LAB BLOOD ORDERABLES Final Res ult [facility] [address] [place] [address] * (ABNORMAL) CBC and Differential (11/10/2024 12:31 AM EDT) WBC Count 10.80(H) 3.70 - 10.30 10*3/uL LAB HEMATOLOGY METHOD 11/10/2024 12:53 AM EDT [facility] RBC Count 3.06(L) 4.60 - 6.10 10*6/uL LAB HEMATOLOGY METHOD 11/10/2024 12:53 AM EDT [facility] HGB 9.1(L) 13.7 - 17.5 g/dL LAB HEMATOLOGY METHOD 11/10/2024 12:53 AM EDT [facility] HCT 28.0(L) 40.0 - 51.0 % LAB HEMATOLOGY METHOD 11/10/2024 12:53 AM EDT [facility] Platelet Count 501(H) 155 - 369 10*3/uL LAB HEMATOLOGY METHOD 11/10/2024 12:53 AM EDT [facility] MCV 92 79 - 98 fL LAB HEMATOLOGY METHOD 11/10/2024 12:53 AM EDT [facility] MCH 29.7 26.0 - 32.0 pg LAB HEMATOLOGY METHOD 11/10/2024 12:53 AM EDT [facility] MCHC 32.5 30.7 - 35.5 g/dL LAB HEMATOLOGY METHOD 11/10/2024 12:53 AM EDT [facility] RDW 13.2 11.5 - 14.5 % LAB HEMATOLOGY METHOD 11/10/2024 12:53 AM EDT [facility] MPV 8.8 8.8 - 12.5 fL LAB HEMATOLOGY METHOD 11/10/2024 12:53 AM EDT [facility] nRBC 0.0 <=0.0 per 100 WBCs LAB HEMATOLOGY METHOD 11/10/2024 12:53 AM EDT [facility] Differential Type Automated LAB HEMATOLOGY METHOD 11/10/2024 12:53 AM EDT [facility] Neutrophils % 77 % LAB HEMATOLOGY METHOD 11/10/2024 12:53 AM EDT [facility] Lymphocytes % 13 % LAB HEMATOLOGY METHOD 11/10/2024 12:53 AM EDT [facility] Monocytes % 8 % LAB HEMATOLOGY METHOD 11/10/2024 12:53 AM EDT [facility] Eosinophils % 1 % LAB HEMATOLOGY METHOD 11/10/2024 12:53 AM EDT [facility] Basophils % 0 % LAB HEMATOLOGY METHOD 11/10/2024 12:53 AM EDT [facility] Immature Granulocytes % 1 % LAB HEMATOLOGY METHOD 11/10/2024 12:53 AM EDT [facility] Neutrophils Absolute 8.32(H) 1.60 - 6.10 10*3/uL LAB HEMATOLOGY METHOD 11/10/2024 12:53 AM EDT [facility] Lymphocytes Absolute 1.40 1.20 - 3.90 10*3/uL LAB HEMATOLOGY METHOD 11/10/2024 12:53 AM EDT [facility] Monocytes Absolute 0.89 0.30 - 0.90 10*3/uL LAB HEMATOLOGY METHOD 11/10/2024 12:53 AM EDT [facility] Eosinophils Absolute 0.09 0.00 - 0.50 10*3/uL LAB HEMATOLOGY METHOD 11/10/2024 12:53 AM EDT [facility] Basophils Absolute 0.04 0.00 - 0.10 10*3/uL LAB HEMATOLOGY METHOD 11/10/2024 12:53 AM EDT [facility] Immature Granulocytes Absolute 0.06 0.00 - 0.06 10*3/uL LAB HEMATOLOGY METHOD 11/10/2024 12:53 AM EDT [facility] Blood Venous blood specimen / Unknown Venipuncture / Unknown 11/10/2024 12:31 AM EDT 11/10/2024 12:37 AM EDT Narrative [facility] - 11/10/2024 12:53 AM EDT Therapeutic decision making should be based on absolute values, rather than percentages. us Nathaly Nowak MD LAB BLOOD ORDERABLES Final Resu lt [facility] [address] [place] [address] * (ABNORMAL) Comprehensive Metabolic Panel, Plasma (11/10/2024 12:31 AM EDT) Glucose, Plasma 185(H) 74 - 99 mg/dL 11/10/2024 1:05 AM EDT [facility] BUN, Plasma 9 8 - 23 mg/dL 11/10/2024 1:05 AM EDT [facility] Creatinine, Plasma 0.72 0.70 - 1.20 mg/dL 11/10/2024 1:05 AM EDT [facility] BUN/Creatinine Ratio 13 11/10/2024 1:05 AM EDT [facility] Sodium, Plasma 135(L) 136 - 145 mmol/L 11/10/2024 1:05 AM EDT [facility] [facility] Potassium, Plasma 4.0 3.6 - 4.9 mmol/L 11/10/2024 1:05 AM EDT [facility] Chloride, Plasma 106 97 - 107 mmol/L 11/10/2024 1:05 AM EDT [facility] CO2, Plasma 19(L) 22 - 29 mmol/L 11/10/2024 1:05 AM EDT [facility] Anion Gap 10 6 - 16 mmol/L 11/10/2024 1:05 AM EDT [facility] Total Calcium, Plasma 7.8(L) 8.9 - 10.2 mg/dL 11/10/2024 1:05 AM EDT [facility] Total Protein 5.6(L) 6.3 - 7.9 g/dL 11/10/2024 1:05 AM EDT [facility] Albumin, Plasma 3.1(L) 3.5 - 5.2 g/dL 11/10/2024 1:05 AM EDT [facility] AST, Plasma 33 10 - 50 U/L 11/10/2024 1:05 AM EDT [facility] ALT, Plasma 25 10 - 50 U/L 11/10/2024 1:05 AM EDT [facility] Alkaline Phosphatase, Plasma 108 40 - 115 U/L 11/10/2024 1:05 AM EDT [facility] Total Bilirubin, Plasma <0.2(L) 0.2 - 1.1 mg/dL 11/10/2024 1:05 AM EDT [facility] eGFRcr 101.4 mL/min/1.7 3m*2 11/10/2024 1:05 AM EDT [facility] Comment:Reported eGFRcr in m L/min/1.73m2 is based the CKD-EPI 2020 equation that does not use a race coefficient. Blood Venous blood specimen / Unknown Venipuncture / Unknown 11/10/2024 12:31 AM EDT 11/10/2024 12:37 AM EDT us Nathaly Nowak MD LAB BLOOD ORDERABLES Final Resu lt [facility] [address] [place] [address] * (ABNORMAL) POCT glucose meter (11/09/2024 8:04 PM EDT) [facility] POCT Glucose 114(H) 74 - 99 mg/dL 11/09/2024 8:06 PM EDT LAB Comment:Accuracy of a glucos e result [...] Comment 11/09/2024 8:06 PM EDT [facility] Finance Broker ID Maximiliano Hansen II 11/09/2024 8:06 PM EDT [facility] Device ID [id number] 11/09/2024 8:06 PM EDT [facility] Specimen Type POC Capillary 11/09/2024 8:06 PM EDT [facility] Blood Capillary blood specimen / Unknown 11/09/2024 8:04 PM EDT 11/09/2024 8:06 PM EDT us Nathaly Nowak MD LAB POINT OF CARE TE ST DOCKED DEVICE UNSOLICITED RESULTS Final Result Performing Organization Address City/[facility] Co de Phone Number [facility] [address] [place] [address] * (ABNORMAL) POCT glucose meter (11/09/2024 4:36 [...] Comment 11/09/2024 4:38 PM EDT [facility] Finance Broker ID Kristian Sosa 11/09/2024 4:38 PM EDT [facility] Device ID [id number] 11/09/2024 4:38 PM EDT [facility] Specimen Type POC Capillary 11/09/2024 4:38 PM EDT [facility] Blood Capillary blood specimen / Unknown 11/09/2024 4:36 PM EDT 11/09/2024 4:38 PM EDT us Nathaly Nowak MD LAB POINT OF CARE TE ST DOCKED DEVICE UNSOLICITED RESULTS Final Result Performing Organization Address City/[facility]/ZIP Co de Phone Number [facility] [address] [place] [address] * PICC SINGLE LUMEN ([employer] LINK) (11/09/2024 1:11 PM EDT) Narrative Estefani Barraza RN - 11/09/2024 1:11 PM EDT Estefani Barraza RN 11/09/2024 1:12 PM Insert PICC line Date/Time: 11/09/2024 1:11 PM Performed by: Estefani Barraza RN Authorized by: Nathaly Nowak MD [place] Protocol: Verbal consent obtained?: Yes Written consent [...] selection rationale: Left pacemaker Catheter Lot #: [id number] Catheter director experimental medicine: [employer] Catheter placed: Single lumen Catheter size: 4 [...] Comment 11/09/2024 11:51 AM EDT [facility] Finance Broker ID Kristian Sosa 11/09/2024 11:51 AM EDT [facility] Device ID [id number] 11/09/2024 11:51 AM EDT [facility] Specimen Type POC Capillary 11/09/2024 11:51 AM EDT LAB Blood Capillary blood specimen / Unknown 11/09/2024 11:50 AM EDT 11/09/2024 11:51 AM EDT Nathaly Nowak MD LAB POINT OF CARE TE ST DOCKED DEVICE UNSOLICITED RESULTS Final Result [facility] [address] [place] [address] * (ABNORMAL) POCT glucose meter (11/09/2024 8:14 AM EDT) [facility] POCT Glucose 153(H) 74 - 99 mg/dL [...] Comment 11/09/2024 8:15 AM EDT [facility] Finance Broker ID Kristian Sosa 11/09/2024 8:15 AM EDT [facility] Device ID [id number] 11/09/2024 8:15 AM EDT [facility] Specimen Type POC Capillary 11/09/2024 8:15 AM EDT LAB Blood Capillary blood specimen / Unknown 11/09/2024 8:14 AM EDT 11/09/2024 8:15 AM EDT us Nathaly Nowak MD LAB POINT OF CARE TE ST DOCKED DEVICE UNSOLICITED RESULTS Final Result LAB [address] [place] [address] * (ABNORMAL) CBC and Differential (11/09/2024 4:15 AM EDT) WBC Count 10.27 3.70 - 10.30 10*3/uL LAB HEMATOLOGY METHOD 11/09/2024 4:26 AM EDT [facility] RBC Count 3.14(L) 4.60 - 6.10 10*6/uL LAB HEMATOLOGY METHOD 11/09/2024 4:26 AM EDT [facility] HGB 9.2(L) 13.7 - 17.5 g/dL LAB HEMATOLOGY METHOD 11/09/2024 4:26 AM EDT [facility] HCT 28.3(L) 40.0 - 51.0 % LAB HEMATOLOGY METHOD 11/09/2024 4:26 AM EDT [facility] Platelet Count 468(H) 155 - 369 10*3/uL LAB HEMATOLOGY METHOD 11/09/2024 4:26 AM EDT [facility] MCV 90 79 - 98 fL LAB HEMATOLOGY METHOD 11/09/2024 4:26 AM EDT [facility] MCH 29.3 26.0 - 32.0 pg LAB HEMATOLOGY METHOD 11/09/2024 4:26 AM EDT [facility] MCHC 32.5 30.7 - 35.5 g/dL LAB HEMATOLOGY METHOD 11/09/2024 4:26 AM EDT [facility] RDW 13.1 11.5 - 14.5 % LAB HEMATOLOGY METHOD 11/09/2024 4:26 AM EDT [facility] MPV 8.7(L) 8.8 - 12.5 fL LAB HEMATOLOGY METHOD 11/09/2024 4:26 AM EDT [facility] nRBC 0.0 <=0.0 per 100 WBCs LAB HEMATOLOGY METHOD 11/09/2024 4:26 AM EDT [facility] Differential Type Automated LAB HEMATOLOGY METHOD 11/09/2024 4:26 AM EDT [facility] Neutrophils % 77 % LAB HEMATOLOGY METHOD 11/09/2024 4:26 AM EDT [facility] Lymphocytes % 13 % LAB HEMATOLOGY METHOD 11/09/2024 4:26 AM EDT [facility] Monocytes % 8 % LAB HEMATOLOGY METHOD 11/09/2024 4:26 AM EDT [facility] Eosinophils % 1 % LAB HEMATOLOGY METHOD 11/09/2024 4:26 AM EDT [facility] Basophils % 0 % LAB HEMATOLOGY METHOD 11/09/2024 4:26 AM EDT [facility] Immature Granulocytes % 1 % LAB HEMATOLOGY METHOD 11/09/2024 4:26 AM EDT [facility] Neutrophils Absolute 7.97(H) 1.60 - 6.10 10*3/uL LAB HEMATOLOGY METHOD 11/09/2024 4:26 AM EDT [facility] Lymphocytes Absolute 1.32 1.20 - 3.90 10*3/uL LAB HEMATOLOGY METHOD 11/09/2024 4:26 AM EDT [facility] Monocytes Absolute 0.83 0.30 - 0.90 10*3/uL LAB HEMATOLOGY METHOD 11/09/2024 4:26 AM EDT [facility] Eosinophils Absolute 0.07 0.00 - 0.50 10*3/uL LAB HEMATOLOGY METHOD 11/09/2024 4:26 AM EDT [facility] Basophils Absolute 0.03 0.00 - 0.10 10*3/uL LAB HEMATOLOGY METHOD 11/09/2024 4:26 AM EDT [facility] Immature Granulocytes Absolute 0.05 0.00 - 0.06 10*3/uL LAB HEMATOLOGY METHOD 11/09/2024 4:26 AM EDT [facility] Blood Venous blood specimen / Unknown Venipuncture / Unknown 11/09/2024 4:15 AM EDT 11/09/2024 4:18 AM EDT [facility] - 11/09/2024 4:26 AM EDT Therapeutic decision making should be based on absolute values, rather than percentages. us Nathaly Nowak MD LAB BLOOD ORDERABLES Final Resu lt [facility] [address] [place] [id number] * (ABNORMAL) Comprehensive Metabolic Panel, Plasma (11/09/2024 4:15 AM EDT) Glucose, Plasma 171(H) 74 - 99 mg/dL 11/09/2024 4:47 AM EDT [facility] BUN, Plasma 9 8 - 23 mg/dL 11/09/2024 4:47 AM EDT [facility] Creatinine, Plasma 0.67(L) 0.70 - 1.20 mg/dL 11/09/2024 4:47 AM EDT [facility] BUN/Creatinine Ratio 13 11/09/2024 4:47 AM EDT [facility] Sodium, Plasma 134(L) 136 - 145 mmol/L 11/09/2024 4:47 AM EDT [facility] Potassium, Plasma 4.1 3.6 - 4.9 mmol/L 11/09/2024 4:47 AM EDT [facility] Chloride, Plasma 104 97 - 107 mmol/L 11/09/2024 4:47 AM EDT [facility] CO2, Plasma 21(L) 22 - 29 mmol/L 11/09/2024 4:47 AM EDT [facility] Anion Gap 9 6 - 16 mmol/L 11/09/2024 4:47 AM EDT [facility] Total Calcium, Plasma 8.4(L) 8.9 - 10.2 mg/dL 11/09/2024 4:47 AM EDT [facility] Total Protein 5.8(L) 6.3 - 7.9 g/dL 11/09/2024 4:47 AM EDT [facility] Albumin, Plasma 3.2(L) 3.5 - 5.2 g/dL 11/09/2024 4:47 AM EDT [facility] AST, Plasma 18 10 - 50 U/L 11/09/2024 4:47 AM EDT [facility] ALT, Plasma 17 10 - 50 U/L 11/09/2024 4:47 AM EDT [facility] Alkaline Phosphatase, Plasma 110 40 - 115 U/L 11/09/2024 4:47 AM EDT [facility] Total Bilirubin, Plasma <0.2(L) 0.2 - 1.1 mg/dL 11/09/2024 4:47 AM EDT [facility] eGFRcr 103.6 mL/min/1.7 3m*2 11/09/2024 4:47 AM EDT [facility] Comment:Reported eGFRcr in m L/min/1.73m2 is based the CKD-EPI 2020 equation that does not use a race coefficient. Blood Venous blood specimen / Unknown Venipuncture / Unknown 11/09/2024 4:15 AM EDT 11/09/2024 4:18 AM EDT us Nathaly Nowak MD LAB BLOOD ORDERABLES Final Resu lt [facility] [address] [place] [address] * (ABNORMAL) POCT glucose meter (11/09/2024 3:30 [...] Comment 11/09/2024 3:31 AM EDT [facility] Finance Broker ID Maximiliano Hansen II 11/09/2024 3:31 AM EDT [facility] Device ID [id number] 11/09/2024 3:31 AM EDT [facility] Specimen Type POC Capillary 11/09/2024 3:31 AM EDT [facility] Blood Capillary blood specimen / Unknown 11/09/2024 3:30 AM EDT 11/09/2024 3:31 AM EDT us Nathaly Nowak MD LAB POINT OF CARE TE ST DOCKED DEVICE UNSOLICITED RESULTS Final Result Performing Organization Address City/[facility]/ZIP Co de Phone Number [facility] [address] [place] [address] * (ABNORMAL) POCT glucose meter (11/08/2024 7:21 PM EDT) [facility] POCT Glucose 292(H) 74 - 99 mg/dL [...] Comment 11/08/2024 7:22 PM EDT [facility] Finance Broker ID Maximiliano Hansen II 11/08/2024 7:22 PM EDT [facility] Device ID [id number] 11/08/2024 7:22 PM EDT [facility] Specimen Type POC Capillary 11/08/2024 7:22 PM EDT LAB Blood Capillary blood specimen / Unknown 11/08/2024 7:21 PM EDT 11/08/2024 7:22 PM EDT Nathaly Nowak MD LAB POINT OF CARE TE ST DOCKED DEVICE UNSOLICITED RESULTS Final Result Performing Organization Address City/[facility] Co de Phone Number [facility] [address] [place] [address] * (ABNORMAL) POCT glucose meter (11/08/2024 5:12 PM EDT) [facility] POCT Glucose 178(H) 74 - 99 mg/dL [...] for testing. Comment 11/08/2024 5:14 PM EDT [facility] Finance Broker ID ShethLindaEstefani L 11/08/2024 5:14 PM EDT [facility] Device ID [id number] 11/08/2024 5:14 PM EDT [facility] Specimen Type POC Capillary 11/08/2024 5:14 PM EDT [facility] Blood Capillary blood specimen / Unknown 11/08/2024 5:12 PM EDT 11/08/2024 5:14 PM EDT Nathaly Nowak MD LAB POINT OF CARE TE ST DOCKED DEVICE UNSOLICITED RESULTS Final Result Performing Organization Address City/[facility]/ZIP Co de Phone Number [facility] [address] [place] [address] * (ABNORMAL) POCT glucose meter (11/08/2024 12:03 [...] Comment 11/08/2024 12:05 PM EDT [facility] Finance Broker ID Estefani Sheth 11/08/2024 12:05 PM EDT [facility] Device ID [id number] 11/08/2024 12:05 PM EDT [facility] Specimen Type POC Capillary 11/08/2024 12:05 PM EDT [facility] Blood Capillary blood specimen / Unknown 11/08/2024 12:03 PM EDT 11/08/2024 12:05 PM EDT us Nathaly Nowak MD LAB POINT OF CARE TE ST DOCKED DEVICE UNSOLICITED RESULTS Final Result Performing Organization Address [facility]/ZIP Co de Phone Number [facility] [address] [place] [address] * Vancomycin, Peak, Plasma Please draw ~2 hours after 11/08 0600 dose of vancomycin finishes infusing.Consider obtaining level via peripheral stick. If peripheral stick is not feasible, please ensure that line is flushed well prior to drawing level.... (11/08/2024 9:24 AM EDT) [facility] Vancomycin, Peak, Plasma 29.1 20.0 - 40.0 ug/mL 11/08/2024 10:31 AM EDT [facility] Blood Venous blood specimen / Unknown Venipuncture / Unknown 11/08/2024 9:24 AM EDT 11/08/2024 9:47 AM EDT Narrative [facility] - 11/08/2024 10:31 AM EDT Therapeutic Peak level: 20-40ug/mL Supra-therapeutic Peak level: >40 ug/mL us Nathaly Nowak MD LAB BLOOD ORDERABLES Final Resu lt [facility] [address] [place] [address] * (ABNORMAL) POCT glucose meter (11/08/2024 8:00 AM EDT) [facility] POCT Glucose 150(H) 74 - 99 mg/dL 11/08/2024 8:01 AM EDT [facility] Comment:Accuracy of [...] Comment 11/08/2024 8:01 AM EDT [facility] Finance Broker ID Estefani Sheth 11/08/2024 8:01 AM EDT [facility] LAB Device ID [id number] 11/08/2024 8:01 AM EDT [facility] Specimen Type POC Capillary 11/08/2024 8:01 AM EDT [facility] Blood Capillary blood specimen / Unknown 11/08/2024 8:00 AM EDT 11/08/2024 8:01 AM EDT us Nathaly Nowak MD LAB POINT OF CARE TE ST DOCKED DEVICE UNSOLICITED RESULTS Final Result LAB [address] [place] [address] * (ABNORMAL) CBC and Differential (11/08/2024 4:39 AM EDT) WBC Count 9.18 3.70 - 10.30 10*3/uL LAB HEMATOLOGY METHOD 11/08/2024 4:58 AM EDT [facility] RBC Count 3.11(L) 4.60 - 6.10 10*6/uL LAB HEMATOLOGY METHOD 11/08/2024 4:58 AM EDT [facility] HGB 9.2(L) 13.7 - 17.5 g/dL LAB HEMATOLOGY METHOD 11/08/2024 4:58 AM EDT [facility] HCT 28.9(L) 40.0 - 51.0 % LAB HEMATOLOGY METHOD 11/08/2024 4:58 AM EDT [facility] Platelet Count 485(H) 155 - 369 10*3/uL LAB HEMATOLOGY METHOD 11/08/2024 4:58 AM EDT [facility] MCV 93 79 - 98 fL LAB HEMATOLOGY METHOD 11/08/2024 4:58 AM EDT [facility] MCH 29.6 26.0 - 32.0 pg LAB HEMATOLOGY METHOD 11/08/2024 4:58 AM EDT [facility] MCHC 31.8 30.7 - 35.5 g/dL LAB HEMATOLOGY METHOD 11/08/2024 4:58 AM EDT [facility] RDW 13.0 11.5 - 14.5 % LAB HEMATOLOGY METHOD 11/08/2024 4:58 AM EDT [facility] MPV 8.8 8.8 - 12.5 fL LAB HEMATOLOGY METHOD 11/08/2024 4:58 AM EDT [facility] nRBC 0.0 <=0.0 per 100 WBCs LAB HEMATOLOGY METHOD 11/08/2024 4:58 AM EDT [facility] Differential Type Automated LAB HEMATOLOGY METHOD 11/08/2024 4:58 AM EDT [facility] Neutrophils % 69 % LAB HEMATOLOGY METHOD 11/08/2024 4:58 AM EDT [facility] Lymphocytes % 17 % LAB HEMATOLOGY METHOD 11/08/2024 4:58 AM EDT [facility] Monocytes % 10 % LAB HEMATOLOGY METHOD 11/08/2024 4:58 AM EDT [facility] Eosinophils % 2 % LAB HEMATOLOGY METHOD 11/08/2024 4:58 AM EDT [facility] Basophils % 1 % LAB HEMATOLOGY METHOD 11/08/2024 4:58 AM EDT [facility] Immature Granulocytes % 1 % LAB HEMATOLOGY METHOD 11/08/2024 4:58 AM EDT [facility] Neutrophils Absolute 6.40(H) 1.60 - 6.10 10*3/uL LAB HEMATOLOGY METHOD 11/08/2024 4:58 AM EDT [facility] Lymphocytes Absolute 1.59 1.20 - 3.90 10*3/uL LAB HEMATOLOGY METHOD 11/08/2024 4:58 AM EDT [facility] Monocytes Absolute 0.87 0.30 - 0.90 10*3/uL LAB HEMATOLOGY METHOD 11/08/2024 4:58 AM EDT [facility] Eosinophils Absolute 0.22 0.00 - 0.50 10*3/uL LAB HEMATOLOGY METHOD 11/08/2024 4:58 AM EDT [facility] Basophils Absolute 0.05 0.00 - 0.10 10*3/uL LAB HEMATOLOGY METHOD 11/08/2024 4:58 AM EDT [facility] Immature Granulocytes Absolute 0.05 0.00 - 0.06 10*3/uL LAB HEMATOLOGY METHOD 11/08/2024 4:58 AM EDT [facility] Blood Venous blood specimen / Unknown Venipuncture / Unknown 11/08/2024 4:39 AM EDT 11/08/2024 4:49 AM EDT Narrative [facility] - 11/08/2024 4:58 AM EDT Therapeutic decision making should be based on absolute values, rather than percentages. us Nathaly Nowak MD LAB BLOOD ORDERABLES Final Resu lt [facility] [address] [place] [address] * (ABNORMAL) Comprehensive Metabolic Panel, Plasma (11/08/2024 4:39 AM EDT) Glucose, Plasma 255(H) 74 - 99 mg/dL 11/08/2024 5:20 AM EDT [facility] BUN, Plasma 10 8 - 23 mg/dL 11/08/2024 5:20 AM EDT [facility] Creatinine, Plasma 0.75 0.70 - 1.20 mg/dL 11/08/2024 5:20 AM EDT [facility] BUN/Creatinine Ratio 13 11/08/2024 5:20 AM EDT [facility] Sodium, Plasma 133(L) 136 - 145 mmol/L 11/08/2024 5:20 AM EDT [facility] Potassium, Plasma 5.2(H) 3.6 - 4.9 mmol/L 11/08/2024 5:20 AM EDT [facility] Chloride, Plasma 105 97 - 107 mmol/L 11/08/2024 5:20 AM EDT [facility] CO2, Plasma 20(L) 22 - 29 mmol/L 11/08/2024 5:20 AM EDT [facility] Anion Gap 8 6 - 16 mmol/L 11/08/2024 5:20 AM EDT [facility] Total Calcium, Plasma 7.7(L) 8.9 - 10.2 mg/dL 11/08/2024 5:20 AM EDT [facility] Total Protein 5.6(L) 6.3 - 7.9 g/dL 11/08/2024 5:20 AM EDT [facility] Albumin, Plasma 2.8(L) 3.5 - 5.2 g/dL 11/08/2024 5:20 AM EDT [facility] AST, Plasma 20 10 - 50 U/L 11/08/2024 5:20 AM EDT [facility] Comment:Hemolyzed, result ma y be falsely increased. ALT, Plasma 14 10 - 50 U/L 11/08/2024 5:20 AM EDT [facility] Alkaline Phosphatase, Plasma 119(H) 40 - 115 U/L 11/08/2024 5:20 AM EDT [facility] Total Bilirubin, Plasma <0.2(L) 0.2 - 1.1 mg/dL 11/08/2024 5:20 AM EDT [facility] eGFRcr 100.1 mL/min/1.7 3m*2 11/08/2024 5:20 AM EDT [facility] Comment:Reported eGFRcr in m L/min/1.73m2 is based the CKD-EPI 2020 equation that does not use a race coefficient. Blood Venous blood specimen / Unknown Venipuncture / Unknown 11/08/2024 4:39 AM EDT 11/08/2024 4:43 AM EDT us Nathaly Nowak MD LAB BLOOD ORDERABLES Final Resu lt [facility] [address] [place] [address] * Vancomycin, Trough, Plasma Please draw ~30 minutes prior to dose due at 0600 on 11/08. Please do NOThold dose awaiting level to return. Consider obtaining level via peripheral stick. If peripheral stick is not feasible, please ensure that line is... (11/08/2024 4:39 AM EDT) Pathologist [facility] Vancomycin, Trough, Plasma 18.7 10.0 - 20.0 ug/mL 11/08/2024 5:22 AM EDT [facility] Blood Venous blood specimen / Unknown Venipuncture / Unknown 11/08/2024 4:39 AM EDT 11/08/2024 4:43 AM EDT Narrative [facility] - 11/08/2024 5:22 AM EDT Therapeutic Trough level: 10-20ug/mL Supra-therapeutic Trough level: >20 ug/mL us Nathaly Nowak MD LAB BLOOD ORDERABLES Final Resu lt [facility] [address] [place] [address] * (ABNORMAL) POCT glucose meter (11/07/2024 7:26 PM EDT) POCT Glucose 172(H) 74 - 99 mg/dL 11/07/2024 7:28 PM EDT [facility] Comment:Accuracy of a glucos e result [...] Comment 11/07/2024 7:28 PM EDT [facility] Finance Broker ID Maximiliano Hansen II 11/07/2024 7:28 PM EDT [facility] Device ID [id number] 11/07/2024 7:28 PM EDT [facility] Specimen Type POC Capillary 11/07/2024 7:28 PM EDT [facility] Blood Capillary blood specimen / Unknown 11/07/2024 7:26 PM EDT 11/07/2024 7:28 PM EDT us Nathaly Nowak MD LAB POINT OF CARE TE ST DOCKED DEVICE UNSOLICITED RESULTS Final Result Performing Organization Address City/State/[facility] Co de Phone Number [facility] [address] [place] [address] * (ABNORMAL) POCT glucose meter (11/07/2024 5:51 [...] 11/07/2024 5:52 PM EDT [facility] Finance Broker ID Briigtte Castellon 11/07/2024 5:52 PM EDT [facility] Device ID [id number] 11/07/2024 5:52 PM EDT [facility] Specimen Type POC Capillary 11/07/2024 5:52 PM EDT [facility] Blood Capillary blood specimen / Unknown 11/07/2024 5:51 PM EDT 11/07/2024 5:52 PM EDT Nathaly Nowak MD LAB POINT OF CARE TE ST DOCKED DEVICE UNSOLICITED RESULTS Final Result Performing Organization Address City/[facility] Co de Phone Number [facility] [address] [place] [address] * (ABNORMAL) POCT glucose meter (11/07/2024 4:47 [...] for testing. Comment 11/07/2024 4:48 PM EDT LAB Finance Broker ID Estefani Sheth 11/07/2024 4:48 PM EDT [facility] Device ID [id number] 11/07/2024 4:48 PM EDT LAB Specimen Type POC Capillary 11/07/2024 4:48 PM EDT LAB Blood Capillary blood specimen / Unknown 11/07/2024 4:47 PM EDT 11/07/2024 4:48 PM EDT Nathaly Nowak MD LAB POINT OF CARE TE ST DOCKED DEVICE UNSOLICITED RESULTS Final Result Performing Organization Address City/[facility] Co de Phone Number [facility] [address] [place] [address] * (ABNORMAL) POCT glucose meter (11/07/2024 12:22 [...] Comment 11/07/2024 12:24 PM EDT [facility] Finance Broker ID Estefani Sheth 11/07/2024 12:24 PM EDT [facility] Device ID [id number] 11/07/2024 12:24 PM EDT [facility] Specimen Type POC Capillary 11/07/2024 12:24 PM EDT [facility] Blood Capillary blood specimen / Unknown 11/07/2024 12:22 PM EDT 11/07/2024 12:24 PM EDT us Nathaly Nowak MD LAB POINT OF CARE TE ST DOCKED DEVICE UNSOLICITED RESULTS Final Result [facility] [address] [place] [id number] * (ABNORMAL) CBC and Differential (11/07/2024 11:37 AM EDT) WBC Count 9.96 3.70 - 10.30 10*3/uL LAB HEMATOLOGY METHOD 11/07/2024 12:33 PM EDT [facility] RBC Count 2.81(L) 4.60 - 6.10 10*6/uL LAB HEMATOLOGY METHOD 11/07/2024 12:33 PM EDT [facility] HGB 8.5(L) 13.7 - 17.5 g/dL LAB HEMATOLOGY METHOD 11/07/2024 12:33 PM EDT [facility] HCT 26.0(L) 40.0 - 51.0 % LAB HEMATOLOGY METHOD 11/07/2024 12:33 PM EDT [facility] Platelet Count 524(H) 155 - 369 10*3/uL LAB HEMATOLOGY METHOD 11/07/2024 12:33 PM EDT [facility] MCV 93 79 - 98 fL LAB HEMATOLOGY METHOD 11/07/2024 12:33 PM EDT [facility] MCH 30.2 26.0 - 32.0 pg LAB HEMATOLOGY METHOD 11/07/2024 12:33 PM EDT [facility] MCHC 32.7 30.7 - 35.5 g/dL LAB HEMATOLOGY METHOD 11/07/2024 12:33 PM EDT [facility] RDW 13.1 11.5 - 14.5 % LAB HEMATOLOGY METHOD 11/07/2024 12:33 PM EDT [facility] LAB MPV 9.0 8.8 - 12.5 fL LAB HEMATOLOGY METHOD 11/07/2024 12:33 PM EDT [facility] LAB nRBC 0.0 <=0.0 per 100 WBCs LAB HEMATOLOGY METHOD 11/07/2024 12:33 PM EDT [facility] LAB Differential Type Automated LAB HEMATOLOGY METHOD 11/07/2024 12:33 PM EDT [facility] Neutrophils % 72 % LAB HEMATOLOGY METHOD 11/07/2024 12:33 PM EDT [facility] Lymphocytes % 17 % LAB HEMATOLOGY METHOD 11/07/2024 12:33 PM EDT [facility] Monocytes % 9 % LAB HEMATOLOGY METHOD 11/07/2024 12:33 PM EDT [facility] Eosinophils % 1 % LAB HEMATOLOGY METHOD 11/07/2024 12:33 PM EDT [facility] Basophils % 1 % LAB HEMATOLOGY METHOD 11/07/2024 12:33 PM EDT [facility] LAB Immature Granulocytes % 0 % LAB HEMATOLOGY METHOD 11/07/2024 12:33 PM EDT [facility] LAB Neutrophils Absolute 7.19(H) 1.60 - 6.10 10*3/uL LAB HEMATOLOGY METHOD 11/07/2024 12:33 PM EDT [facility] Lymphocytes Absolute 1.66 1.20 - 3.90 10*3/uL LAB HEMATOLOGY METHOD 11/07/2024 12:33 PM EDT [facility] Monocytes Absolute 0.88 0.30 - 0.90 10*3/uL LAB HEMATOLOGY METHOD 11/07/2024 12:33 PM EDT [facility] Eosinophils Absolute 0.14 0.00 - 0.50 10*3/uL LAB HEMATOLOGY METHOD 11/07/2024 12:33 PM EDT [facility] LAB Basophils Absolute 0.05 0.00 - 0.10 10*3/uL LAB HEMATOLOGY METHOD 11/07/2024 12:33 PM EDT [facility] Immature Granulocytes Absolute 0.04 0.00 - 0.06 10*3/uL LAB HEMATOLOGY METHOD 11/07/2024 12:33 PM EDT [facility] Blood Venous blood specimen / Unknown Venipuncture / Unknown 11/07/2024 11:37 AM EDT 11/07/2024 12:24 PM EDT Narrative [facility] - 11/07/2024 12:33 PM EDT Therapeutic decision making should be based on absolute values, rather than percentages. us Nathaly Nowak MD LAB BLOOD ORDERABLES Final Resu lt [facility] [address] [place] [address] * (ABNORMAL) Comprehensive Metabolic Panel, Plasma (11/07/2024 11:37 AM EDT) Glucose, Plasma 173(H) 74 - 99 mg/dL 11/07/2024 1:31 PM EDT [facility] BUN, Plasma 13 8 - 23 mg/dL 11/07/2024 1:31 PM EDT [facility] Creatinine, Plasma 0.92 0.70 - 1.20 mg/dL 11/07/2024 1:31 PM EDT [facility] BUN/Creatinine Ratio 11/07/2024 1:31 PM EDT [facility] Sodium, Plasma 136 136 - 145 mmol/L 11/07/2024 1:31 PM EDT [facility] Potassium, Plasma 4.0 3.6 - 4.9 mmol/L 11/07/2024 1:31 PM EDT [facility] Chloride, Plasma 104 97 - 107 mmol/L 11/07/2024 1:31 PM EDT [facility] CO2, Plasma 23 22 - 29 mmol/L 11/07/2024 1:31 PM EDT [facility] Anion Gap 9 6 - 16 mmol/L 11/07/2024 1:31 PM EDT [facility] Total Calcium, Plasma 7.8(L) 8.9 - 10.2 mg/dL 11/07/2024 1:31 PM EDT [facility] Total Protein 5.7(L) 6.3 - 7.9 g/dL 11/07/2024 1:31 PM EDT [facility] Albumin, Plasma 3.0(L) 3.5 - 5.2 g/dL 11/07/2024 1:31 PM EDT [facility] AST, Plasma 15 10 - 50 U/L 11/07/2024 1:31 PM EDT [facility] ALT, Plasma 16 10 - 50 U/L 11/07/2024 1:31 PM EDT [facility] Alkaline Phosphatase, Plasma 119(H) 40 - 115 U/L 11/07/2024 1:31 PM EDT [facility] Total Bilirubin, Plasma <0.2(L) 0.2 - 1.1 mg/dL 11/07/2024 1:31 PM EDT [facility] eGFRcr 92.3 mL/min/1.7 3m*2 11/07/2024 1:31 PM EDT [facility] Comment:Reported eGFRcr in m L/min/1.73m2 is based the CKD-EPI 2020 equation that does not use a race coefficient. Blood Venous blood specimen / Unknown Venipuncture / Unknown 11/07/2024 11:37 AM EDT 11/07/2024 12:23 PM EDT us Nathaly Nowak MD LAB BLOOD ORDERABLES Final Resu lt [facility] [address] [place] [address] * Type and Screen (11/07/2024 11:37 AM EDT) ABO/Rh A Negative 11/06/2024 8:56 AM EDT BLOOD BANK Antibody Screen Negative 11/06/2024 8:56 AM EDT BLOOD BANK Specimen Expiration 11/10/2024 23:59 11/06/2024 8:56 AM EDT BLOOD BANK Blood Venous blood specimen / Unknown Venipuncture / Unknown 11/07/2024 11:37 AM EDT 11/07/2024 11:50 AM EDT us Sabrina DOSHI LAB BLOOD BANK TEST ORDERABLES F inal Result Performing Organization Address City/[facility]/ZIP Co de Phone Number BLOOD BANK [address] [place] [address], * (ABNORMAL) POCT glucose meter (11/07/2024 10:34 [...] Comment 11/07/2024 10:36 AM EDT HEALTHCARE LAB Finance Broker ID Joy Iraheta 11/07/2024 10:36 AM EDT [facility] LAB Device ID [id number] 11/07/2024 10:36 AM EDT HEALTHCARE LAB Specimen Type POC Capillary 11/07/2024 10:36 AM EDT LAB Blood Capillary blood specimen / Unknown 11/07/2024 10:34 AM EDT 11/07/2024 10:36 AM EDT us Nathaly Nowak MD LAB POINT OF CARE TE ST DOCKED DEVICE UNSOLICITED RESULTS Final Result Performing Organization Address City/State/[facility] Co de Phone Number HEALTHCARE LAB [address] [place] [address] * (ABNORMAL) POCT glucose meter (11/07/2024 9:34 AM EDT) Pathologist [facility] POCT Glucose 208(H) 74 - 99 mg/dL [...] Comment 11/07/2024 9:36 AM EDT HEALTHCARE LAB Finance Broker ID Brigitte Castellon 11/07/2024 9:36 AM EDT HEALTHCARE LAB Device ID [id number] 11/07/2024 9:36 AM EDT HEALTHCARE LAB Specimen Type POC Capillary 11/07/2024 9:36 AM EDT HEALTHCARE LAB Blood Capillary blood specimen / Unknown 11/07/2024 9:34 AM EDT 11/07/2024 9:36 AM EDT Nathaly Nowak MD LAB POINT OF CARE TE ST DOCKED DEVICE UNSOLICITED RESULTS Final Result Performing Organization Address City/[facility]/ZIP Co de Phone Number HEALTHCARE LAB [address] [place] [address] * (ABNORMAL) POCT glucose meter (11/07/2024 8:20 [...] Comment 11/07/2024 8:22 AM EDT HEALTHCARE LAB Finance Broker ID Estefani Sheth 11/07/2024 8:22 AM EDT HEALTHCARE LAB Device ID [id number] 11/07/2024 8:22 AM EDT LAB Specimen Type POC Capillary 11/07/2024 8:22 AM EDT LAB Blood Capillary blood specimen / Unknown 11/07/2024 8:20 AM EDT 11/07/2024 8:22 AM EDT us Nathaly Nowak MD LAB POINT OF CARE TE ST DOCKED DEVICE UNSOLICITED RESULTS Final Result Performing Organization Address City/[facility]/ZIP Co de Phone Number [facility] [address] [place] [address] * (ABNORMAL) POCT glucose meter (11/07/2024 7:21 [...] Comment 11/07/2024 7:22 AM EDT HEALTHCARE LAB Finance Broker ID Brigitte Castellon 11/07/2024 7:22 AM EDT HEALTHCARE LAB Device ID [id number] 11/07/2024 7:22 AM EDT HEALTHCARE LAB Specimen Type POC Capillary 11/07/2024 7:22 AM EDT HEALTHCARE LAB Blood Capillary blood specimen / Unknown 11/07/2024 7:21 AM EDT 11/07/2024 7:22 AM EDT us Nathaly Nowak MD LAB POINT OF CARE TE ST DOCKED DEVICE UNSOLICITED RESULTS Final Result Performing Organization Address City/State/[facility] Co de Phone Number HEALTHCARE LAB [address] [place] [address] * (ABNORMAL) POCT glucose meter (11/07/2024 6:25 [...] Comment 11/07/2024 6:27 AM EDT HEALTHCARE LAB Finance Broker ID Nelda Gerber 11/08/19 6:27 AM EDT HEALTHCARE LAB Device ID [id number] 11/07/2024 6:27 AM EDT HEALTHCARE LAB Specimen Type POC Capillary 11/07/2024 6:27 AM EDT HEALTHCARE LAB Blood Capillary blood specimen / Unknown 11/07/2024 6:25 AM EDT 11/07/2024 6:27 AM EDT us Nathaly Nowak MD LAB POINT OF CARE TE ST DOCKED DEVICE UNSOLICITED RESULTS Final Result [facility] LAB [address] [place] [address] * (ABNORMAL) POCT glucose meter (11/07/2024 5:03 [...] for testing. Comment 11/07/2024 5:08 AM EDT LAB Finance Broker ID Nelda Gerber 11/08/19 5:08 AM EDT [facility] LAB Device ID [id number] 11/07/2024 5:08 AM EDT LAB Specimen Type POC Capillary 11/07/2024 5:08 AM EDT LAB Blood Capillary blood specimen / Unknown 11/07/2024 5:03 AM EDT 11/07/2024 5:08 AM EDT us Nathaly Nowak MD LAB POINT OF CARE TE ST DOCKED DEVICE UNSOLICITED RESULTS Final Result [facility] [address] [place] [address] * (ABNORMAL) POCT glucose meter (11/07/2024 4:16 [...] Comment 11/07/2024 4:18 AM EDT HEALTHCARE LAB Finance Broker ID Nelda Gerber 11/08/19 4:18 AM EDT HEALTHCARE LAB Device ID [id number] 11/07/2024 4:18 AM EDT HEALTHCARE LAB Specimen Type POC Capillary 11/07/2024 4:18 AM EDT HEALTHCARE LAB Blood Capillary blood specimen / Unknown 11/07/2024 4:16 AM EDT 11/07/2024 4:18 AM EDT Nathaly Nowak MD LAB POINT OF CARE TE ST DOCKED DEVICE UNSOLICITED RESULTS Final Result Performing Organization Address City/[facility] Co de Phone Number HEALTHCARE LAB [address] [place] [address] * (ABNORMAL) POCT glucose meter (11/07/2024 3:21 [...] Comment 11/07/2024 3:23 AM EDT HEALTHCARE LAB Finance Broker ID Nelda Gerber 11/08/19 3:23 AM EDT HEALTHCARE LAB Device ID [id number] 11/07/2024 3:23 AM EDT HEALTHCARE LAB Specimen Type POC Capillary 11/07/2024 3:23 AM EDT HEALTHCARE LAB Blood Capillary blood specimen / Unknown 11/07/2024 3:21 AM EDT 11/07/2024 3:23 AM EDT Nathaly Nowak MD LAB POINT OF CARE TE ST DOCKED DEVICE UNSOLICITED RESULTS Final Result Performing Organization Address City/[facility]/ZIP Co de Phone Number HEALTHCARE LAB [address] [place] [address] * (ABNORMAL) POCT glucose meter (11/07/2024 2:10 AM EDT) [facility] POCT Glucose 146(H) 74 - 99 mg/dL [...] for testing. Comment 11/07/2024 2:12 AM EDT [facility] Finance Broker ID Nelda Gerber 11/08/19 2:12 AM EDT [facility] Device ID [id number] 11/07/2024 2:12 AM EDT [facility] Specimen Type POC Capillary 11/07/2024 2:12 AM EDT LAB Blood Capillary blood specimen / Unknown 11/07/2024 2:10 AM EDT 11/07/2024 2:12 AM EDT us Nathaly Nowak MD LAB POINT OF CARE TE ST DOCKED DEVICE UNSOLICITED RESULTS Final Result Performing Organization Address City/State/[facility] Co de Phone Number HEALTHCARE LAB [address] [place] [address] * (ABNORMAL) POCT glucose meter (11/07/2024 1:08 AM EDT) [facility] POCT Glucose 135(H) 74 - 99 mg/dL [...] for testing. Comment 11/07/2024 1:10 AM EDT [facility] Finance Broker ID Nelda Gerber 11/08/19 1:10 AM EDT HEALTHCARE LAB Device ID [id number] 11/07/2024 1:10 AM EDT HEALTHCARE LAB Specimen Type POC Capillary 11/07/2024 1:10 AM EDT LAB Blood Capillary blood specimen / Unknown 11/07/2024 1:08 AM EDT 11/07/2024 1:10 AM EDT Nathaly Nowak MD LAB POINT OF CARE TE ST DOCKED DEVICE UNSOLICITED RESULTS Final Result Performing Organization Address City/[facility]/ZIP Co de Phone Number HEALTHCARE LAB [address] [place] [address] * (ABNORMAL) POCT glucose meter (11/07/2024 12:10 [...] for testing. Comment 11/07/2024 12:13 AM EDT LAB Finance Broker ID Nelda Gerber 11/08/19 12:13 AM EDT HEALTHCARE LAB Device ID [id number] 11/07/2024 12:13 AM EDT LAB Specimen Type POC Capillary 11/07/2024 12:13 AM EDT LAB Blood Capillary blood specimen / Unknown 11/07/2024 12:10 AM EDT 11/07/2024 12:13 AM EDT Nathaly Nowak MD LAB POINT OF CARE TE ST DOCKED DEVICE UNSOLICITED RESULTS Final Result [facility] [address] [place] [address] * (ABNORMAL) POCT glucose meter (11/06/2024 11:14 [...] Comment 11/06/2024 11:16 PM EDT HEALTHCARE LAB Finance Broker ID Nelda Gerber 11/07/19 11:16 PM EDT HEALTHCARE LAB Device ID [id number] 11/06/2024 11:16 PM EDT HEALTHCARE LAB Specimen Type POC Capillary 11/06/2024 11:16 PM EDT HEALTHCARE LAB Blood Capillary blood specimen / Unknown 11/06/2024 11:14 PM EDT 11/06/2024 11:16 PM EDT Nathaly Nowak MD LAB POINT OF CARE TE ST DOCKED DEVICE UNSOLICITED RESULTS Final Result Performing Organization Address City/State/[facility] Co de Phone Number HEALTHCARE LAB [address] [place] [address] * (ABNORMAL) POCT glucose meter (11/06/2024 10:07 [...] Comment 11/06/2024 10:09 PM EDT HEALTHCARE LAB Finance Broker ID Nelda Gerber 11/07/19 10:09 PM EDT HEALTHCARE LAB Device ID [id number] 11/06/2024 10:09 PM EDT HEALTHCARE LAB Specimen Type POC Capillary 11/06/2024 10:09 PM EDT HEALTHCARE LAB Blood Capillary blood specimen / Unknown 11/06/2024 10:07 PM EDT 11/06/2024 10:09 PM EDT us Nathaly Nowak MD LAB POINT OF CARE TE ST DOCKED DEVICE UNSOLICITED RESULTS Final Result [facility] [address] [place] [address] * (ABNORMAL) POCT glucose meter (11/06/2024 8:22 PM EDT) [facility] POCT Glucose 256(H) 74 - 99 mg/dL [...] for testing. Comment 11/06/2024 8:25 PM EDT LAB Finance Broker ID Nelda Gerber 11/07/19 8:25 PM EDT HEALTHCARE LAB Device ID [id number] 11/06/2024 8:25 PM EDT LAB Specimen Type POC Capillary 11/06/2024 8:25 PM EDT LAB Blood Capillary blood specimen / Unknown 11/06/2024 8:22 PM EDT 11/06/2024 8:25 PM EDT Nathaly Nowak MD LAB POINT OF CARE TE ST DOCKED DEVICE UNSOLICITED RESULTS Final Result Performing Organization Address City/[facility]/ZIP Co de Phone Number [facility] [address] [place] [address] * (ABNORMAL) POCT glucose meter (11/06/2024 7:31 PM EDT) [facility] POCT Glucose 359(H) 74 - 99 mg/dL [...] Comment 11/06/2024 7:32 PM EDT HEALTHCARE LAB Finance Broker ID Nelda Gerber 11/07/19 7:32 PM EDT HEALTHCARE LAB Device ID [id number] 11/06/2024 7:32 PM EDT HEALTHCARE LAB Specimen Type POC Capillary 11/06/2024 7:32 PM EDT HEALTHCARE LAB Blood Capillary blood specimen / Unknown 11/06/2024 7:31 PM EDT 11/06/2024 7:32 PM EDT Nathaly Nwoak MD LAB POINT OF CARE TE ST DOCKED DEVICE UNSOLICITED RESULTS Final Result Performing Organization Address City/[facility]/ZIP Co de Phone Number [facility] [address] [place] [address] * (ABNORMAL) POCT glucose meter (11/06/2024 6:15 PM EDT) [facility] POCT Glucose 368(H) 74 - 99 mg/dL [...] Comment 11/06/2024 6:17 PM EDT HEALTHCARE LAB Finance Broker ID Estefani Sheth 11/06/2024 6:17 PM EDT HEALTHCARE LAB Device ID [id number] 11/06/2024 6:17 PM EDT HEALTHCARE LAB Specimen Type POC Capillary 11/06/2024 6:17 PM EDT HEALTHCARE LAB Blood Capillary blood specimen / Unknown 11/06/2024 6:15 PM EDT 11/06/2024 6:17 PM EDT us Nathaly Nowak MD LAB POINT OF CARE TE ST DOCKED DEVICE UNSOLICITED RESULTS Final Result [facility] [address] [place] [address] * (ABNORMAL) POCT glucose meter (11/06/2024 4:57 PM EDT) [facility] POCT Glucose 417(H) 74 - 99 mg/dL [...] Comment 11/06/2024 4:58 PM EDT HEALTHCARE LAB Finance Broker ID Estefani Sheth 11/06/2024 4:58 PM EDT HEALTHCARE LAB Device ID [id number] 11/06/2024 4:58 PM EDT HEALTHCARE LAB Specimen Type POC Capillary 11/06/2024 4:58 PM EDT HEALTHCARE LAB Blood Capillary blood specimen / Unknown 11/06/2024 4:57 PM EDT 11/06/2024 4:58 PM EDT Nathaly Nowak MD LAB POINT OF CARE TE ST DOCKED DEVICE UNSOLICITED RESULTS Final Result Performing Organization Address City/State/[facility] Co de Phone Number HEALTHCARE LAB [address] [place] [address] * (ABNORMAL) POCT glucose meter (11/06/2024 2:08 PM EDT) [facility] POCT Glucose 253(H) 74 - 99 mg/dL [...] 11/06/2024 2:09 PM EDT [facility] Finance Broker ID Brigitte Castellon 11/06/2024 2:09 PM EDT HEALTHCARE LAB Device ID [id number] 11/06/2024 2:09 PM EDT [facility] Specimen Type POC Capillary 11/06/2024 2:09 PM EDT HEALTHCARE LAB Blood Capillary blood specimen / Unknown 11/06/2024 2:08 PM EDT 11/06/2024 2:09 PM EDT Nathaly Nowak MD LAB POINT OF CARE TE ST DOCKED DEVICE UNSOLICITED RESULTS Final Result Performing Organization Address City/[facility] de Phone Number HEALTHCARE LAB [address] [place] [address] * (ABNORMAL) POCT glucose meter (11/06/2024 12:27 PM EDT) Pathologist [facility] POCT Glucose 228(H) 74 - 99 mg/dL [...] Comment 11/06/2024 12:28 PM EDT HEALTHCARE LAB Finance Broker ID Jacinta Galloway 11/06/2024 12:28 PM EDT HEALTHCARE LAB Device ID [id number] 11/06/2024 12:28 PM EDT HEALTHCARE LAB Specimen Type POC Capillary 11/06/2024 12:28 PM EDT LAB Blood Capillary blood specimen / Unknown 11/06/2024 12:27 PM EDT 11/06/2024 12:28 PM EDT Nathaly Nowak MD LAB POINT OF CARE TE ST DOCKED DEVICE UNSOLICITED RESULTS Final Result Performing Organization Address City/[facility] Co de Phone Number HEALTHCARE LAB [address] [place] [address] * (ABNORMAL) Tissue Culture and Gram Stain (11/06/2024 11:34 AM EDT) Pathologist [facility] Culture Moderate Growth 7:35 AM EDT [facility] Culture 2+ Enterobacter cloacae complex(A) ANGÉLICA 11/15/2024 7:35 AM EDT [facility] Comment: This isolate has been identified using the FDA Approved [employer] [place] System The organism value for this result has been updated. These results have been appended to the previously preliminary verified report. Edited result: Previously reported as Gram Negative Jesus on 11/07/2024 at 1434 EDT. Culture 2+ Streptococcus mitis/oralis group(A) ANGÉLICA 11/15/2024 7:35 AM EDT [facility] Comment: This isolate has been identified using the FDA Approved [employer] [place] System The organism value for this result has been updated. These results have been appended to the previously preliminary verified report. Culture 2+ Pasteurella stomatis(A) ANGÉLICA 11/15/2024 7:35 AM EDT [facility] Comment: This result was determined by [employer] tof mass spectrometry using the [employer] database and is for research use only. The organism value for this result has been updated. These results have been appended to the previously preliminary verified report. Gram Stain Result Few Gram negative rods(A) 11/15/2024 7:35 AM EDT [facility] Gram Stain Result Moderate Polymorphonuclear leukocytes(A) 11/15/2024 7:35 AM EDT [facility] Gram Stain Result Few Gram positive cocci in pairs(A) 11/15/2024 7:35 AM EDT [facility] Tissue Topography unknown / Unknown 11/06/2024 11:34 AM EDT 11/06/2024 12:18 PM EDT Comment:Pre-op diagnosis: Surgical wound infection [T81.49XA] Narrative [facility] - 11/15/2024 7:35 AM EDT [...] GENERAL ATIYA FRITZ Edited Result - Final [facility] [address] [place] [address] * (ABNORMAL) Anaerobic Culture (11/06/2024 11:34 AM EDT) Culture No anaerobes isolated 11/14/2024 1:25 PM EDT [facility] Culture Staphylococcus pseudintermedius( A) 11/14/2024 1:25 PM EDT [facility] Comment: This result was determined by [employer] tof mass spectrometry using the [employer] database and is for research use only. This is an appended report. These results have been appended to a previously final verified report. Tissue Topography unknown / Unknown 11/06/2024 11:34 AM EDT 11/06/2024 12:18 PM EDT Comment:Pre-op diagnosis: Surgical wound infection [T81.49XA] Narrative [facility] - 11/14/2024 1:25 PM EDT [...] GENERAL ATIYA FRITZ Edited Result - Final [facility] [address] [place] [address] * (ABNORMAL) Routine Culture and Gram Stain (11/06/2024 11:29 AM EDT) Culture Moderate Growth 5:29 PM EDT [facility] Culture Enterobacter cloacae complex(A) 11/08/2024 5:29 PM EDT [facility] Comment: This isolate has been identified using the FDA Approved [employer] [place] System For susceptibility results refer to: - [id number] The organism value for this result has been updated. These results have been appended to the previously preliminary verified report. Gram Stain Result No polymorphonuclear leukocytes seen 11/08/2024 5:29 PM EDT [facility] Gram Stain Result No organisms seen 11/08/2024 5:29 PM EDT [facility] Swab Topography unknown / Unknown 11/06/2024 11:29 AM EDT 11/06/2024 12:19 PM EDT Comment:Pre-op diagnosis: Surgical wound infection [T81.49XA] us Nathaly Nowak MD LAB MICROBIOLOGY - GENERAL [place] [address] * Fungal Culture, Routine (11/06/2024 11:29 AM EDT) Culture No Fungal Growth at 1 Week 11/13/2024 8:29 AM EDT [facility] Swab Topography unknown / Unknown 11/06/2024 11:29 AM EDT 11/06/2024 12:19 PM EDT Comment:Pre-op diagnosis: Surgical wound infection [T81.49XA] us Nathaly Nowak MD LAB MICROBIOLOGY - GENERAL ORDE RABONEIDA Final Result [facility] [address] [place] [address] * (ABNORMAL) Anaerobic Culture (11/06/2024 11:29 AM EDT) Culture No anaerobes isolated 11/14/2024 1:25 PM EDT [facility] Culture Streptococcus mitis/oralis group(A) 11/14/2024 1:25 PM EDT [facility] Comment: This result was determined by [employer] tof mass spectrometry using the [employer] database and is for research use only. The organism value for this result has been updated. These results have been appended to the previously preliminary verified report. This is a corrected result. Previous organism was Mixed skin clifton on 11/10/2024 at 0718 EDT. Culture Staphylococcus pseudintermedius( A) 11/14/2024 1:25 PM EDT [facility] Comment: This isolate has been identified using the FDA Approved [employer] [place] System This is an appended report. These results have been appended to a previously final verified report. Swab Topography unknown / Unknown 11/06/2024 11:29 AM EDT 11/06/2024 12:19 PM EDT Comment:Pre-op diagnosis: Surgical wound infection [T81.49XA] Narrative [facility] - 11/14/2024 1:25 PM EDT [...] Nathaly Nowak MD LAB MICROBIOLOGY - GENERAL FABRICEE LAM Edited Result - Final Performing Organization Address [facility]/ZIP Co de Phone Number [facility] [address] [place] [address] * Routine Culture and Gram Stain (11/06/2024 11:28 AM EDT) Culture No growth at day 4 2024 11:24 AM EDT [facility] Gram Stain Result No organisms seen 11/10/2024 11:24 AM EDT [facility] Gram Stain Result No polymorphonuclear leukocytes seen 11/10/2024 11:24 AM EDT [facility] Swab Topography unknown / Unknown 11/06/2024 11:28 AM EDT 11/06/2024 12:20 PM EDT Comment:Pre-op diagnosis: Surgical wound infection [T81.49XA] Nathaly Nowak MD LAB MICROBIOLOGY - GENERAL ATIYA FRITZ Final Result Performing Organization Address City/[facility] Co de Phone Number [facility] [address] [place] [address] * Fungal Culture, Routine (11/06/2024 11:28 AM EDT) Culture No Fungal Growth at 1 Week 11/13/2024 8:29 AM EDT [facility] Swab Topography unknown / Unknown 11/06/2024 11:28 AM EDT 11/06/2024 12:20 PM EDT Comment:Pre-op diagnosis: Surgical wound infection [T81.49XA] Nathaly Nowak MD LAB MICROBIOLOGY - GENERAL ORDE LAM Final Result Performing Organization Address City/[facility]/ZIP Co de Phone Number [facility] [address] [place] [address] * Anaerobic Culture (11/06/2024 11:28 AM EDT) Culture No growth at day 4 11/13/2024 12:53 PM EDT [facility] Swab Topography unknown / Unknown 11/06/2024 11:28 AM EDT 11/06/2024 12:20 PM EDT Comment:Pre-op diagnosis: Surgical wound infection [T81.49XA] Nathaly Nowak MD LAB MICROBIOLOGY - GENERAL ORDE RABLES Final Result Performing Organization Address City/[facility]/ZIP Co de Phone Number [facility] [address] [place] [address] * (ABNORMAL) POCT glucose meter (11/06/2024 10:16 [...] Comment 11/06/2024 10:18 AM EDT HEALTHCARE LAB Finance Broker ID Lacy Griffin 11/07/19 10:18 AM EDT HEALTHCARE LAB Device ID [id number] 11/06/2024 10:18 AM EDT HEALTHCARE LAB Specimen Type POC Capillary 11/06/2024 10:18 AM EDT LAB Blood Capillary blood specimen / Unknown 11/06/2024 10:16 AM EDT 11/06/2024 10:18 AM EDT us Nathaly Nowak MD LAB POINT OF CARE TE ST DOCKED DEVICE UNSOLICITED RESULTS Final Result Performing Organization Address City/[facility]/ZIP Co de Phone Number HEALTHCARE LAB [address] [place] [address] * (ABNORMAL) POCT glucose meter (11/06/2024 5:58 [...] 11/06/2024 6:01 AM EDT [facility] Finance Broker ID Raj Laird 11/07/19 6:01 AM EDT [facility] Device ID [id number] 11/06/2024 6:01 AM EDT [facility] Specimen Type POC Capillary 11/06/2024 6:01 AM EDT HEALTHCARE LAB Blood Capillary blood specimen / Unknown 11/06/2024 5:58 AM EDT 11/06/2024 6:01 AM EDT us Nathaly Nowak MD LAB POINT OF CARE TE ST DOCKED DEVICE UNSOLICITED RESULTS Final Result Performing Organization Address City/State/[facility] Co de Phone Number [facility] [address] [place] [address] * (ABNORMAL) POCT glucose meter (11/06/2024 5:36 AM EDT) [facility] POCT Glucose 202(H) 74 - 99 mg/dL [...] 11/06/2024 5:38 AM EDT [facility] Finance Broker ID Shahid Sanches 11/06/2024 5:38 AM EDT [facility] Device ID [id number] 11/06/2024 5:38 AM EDT HEALTHCARE LAB Specimen Type POC Capillary 11/06/2024 5:38 AM EDT HEALTHCARE LAB Blood Capillary blood specimen / Unknown 11/06/2024 5:36 AM EDT 11/06/2024 5:38 AM EDT us Nathaly Nowak MD LAB POINT OF CARE TE ST DOCKED DEVICE UNSOLICITED RESULTS Final Result Performing Organization Address City/[facility] Co de Phone Number LAB [address] [place] [address] * (ABNORMAL) Hemoglobin A1c (11/06/2024 1:07 AM EDT) Hemoglobin A1c 7.6(H) <5.7 % 11/06/2024 11:09 AM EDT [facility] Blood Venous blood specimen / Unknown Venipuncture / Unknown 11/06/2024 1:07 AM EDT 11/06/2024 1:26 AM EDT Narrative [facility] - 11/06/2024 11:09 AM EDT HA1C Interpretive Data: Diagnosis of Diabetes: Diabetic > or = 6.5% Pre-diabetic 5.7 to 6.4% Non-diabetic < or = 5.6% Glycemic Targets for Type I and Type II Diabetics: Non- Adults <7.0% Adults <6.0% Children and Adolescents <7.5% Source: [place] [employer]. Standards of medical care in diabetes,2017. Diabetes Care.2017:40 (suppl 1):S1-S135. us Nathaly Nowak MD LAB BLOOD ORDERABLES Final Resu lt Performing Organization Address [facility] Co de Phone Number [facility] [address] [place] [address] * Blood Culture (Aerobic/Anaerobet Set) (11/06/2024 1:07 AM EDT) Culture No growth at day 5 11/11/2024 2:49 AM EDT [facility] Blood Structure of right hand / Unknown Venipuncture / Unknown 11/06/2024 1:07 AM EDT 11/06/2024 2:36 AM EDT us Nathaly Nowak MD LAB MICROBIOLOGY - GENERAL ORDE RABLES Final Result Performing Organization Address City/[facility] Co de Phone Number [facility] [address] [place] [address] * Blood Culture (Aerobic/Anaerobet Set) (11/06/2024 1:07 AM EDT) Culture No growth at day 5 11/11/2024 3:01 AM EDT [facility] Blood Structure of antecubital vein / Unknown Venipuncture / Unknown 11/06/2024 1:07 AM EDT 11/06/2024 2:36 AM EDT us Nathaly Nowak MD LAB MICROBIOLOGY - GENERAL ORDE LAM Final Result [facility] [address] [place] [address] * (ABNORMAL) Basic metabolic panel (11/06/2024 1:07 AM EDT) Glucose, Plasma 207(H) 74 - 99 mg/dL 11/06/2024 1:41 AM EDT [facility] BUN, Plasma 20 8 - 23 mg/dL 11/06/2024 1:41 AM EDT [facility] Creatinine, Plasma 0.92 0.70 - 1.20 mg/dL 11/06/2024 1:41 AM EDT [facility] BUN/Creatinine Ratio 22 11/06/2024 1:41 AM EDT [facility] Sodium, Plasma 136 136 - 145 mmol/L 11/06/2024 1:41 AM EDT [facility] Potassium, Plasma 4.5 3.6 - 4.9 mmol/L 11/06/2024 1:41 AM EDT [facility] Chloride, Plasma 104 97 - 107 mmol/L 11/06/2024 1:41 AM EDT [facility] CO2, Plasma 22 22 - 29 mmol/L 11/06/2024 1:41 AM EDT [facility] Anion Gap 10 6 - 16 mmol/L 11/06/2024 1:41 AM EDT [facility] Total Calcium, Plasma 9.0 8.9 - 10.2 mg/dL 11/06/2024 1:41 AM EDT [facility] eGFRcr 92.3 mL/min/1.7 3m*2 11/06/2024 1:41 AM EDT [facility] Comment:Reported eGFRcr in m L/min/1.73m2 is based the CKD-EPI 2020 equation that does not use a race coefficient. Blood Venous blood specimen / Unknown Venipuncture / Unknown 11/06/2024 1:07 AM EDT 11/06/2024 1:12 AM EDT Nathaly Nowak MD LAB BLOOD ORDERABLES Final Resu lt Performing Organization Address City/[facility]/ZIP Co de Phone Number [facility] [address] [place] [address] * Phosphorus (11/06/2024 1:07 AM EDT) Phosphorus, Plasma 3.2 2.5 - 4.5 mg/dL 11/06/2024 1:41 AM EDT [facility] Blood Venous blood specimen / Unknown Venipuncture / Unknown 11/06/2024 1:07 AM EDT 11/06/2024 1:12 AM EDT Nathaly Nowak MD LAB BLOOD ORDERABLES Final Resu lt Performing Organization Address [facility] Co de Phone Number [facility] [address] [place] [address] * Magnesium (11/06/2024 1:07 AM EDT) Magnesium, Plasma 2.2 1.9 - 2.4 mg/dL 11/06/2024 1:41 AM EDT [facility] Blood Venous blood specimen / Unknown Venipuncture / Unknown 11/06/2024 1:07 AM EDT 11/06/2024 1:12 AM EDT Nathaly Nowak MD LAB BLOOD ORDERABLES Final Resu lt Performing Organization Address [facility] Co de Phone Number [facility] [address] [place] [address] * (ABNORMAL) CBC (11/06/2024 1:07 AM EDT) WBC Count 9.70 3.70 - 10.30 10*3/uL LAB HEMATOLOGY METHOD 11/06/2024 1:19 AM EDT [facility] RBC Count 2.89(L) 4.60 - 6.10 10*6/uL LAB HEMATOLOGY METHOD 11/06/2024 1:19 AM EDT [facility] HGB 8.8(L) 13.7 - 17.5 g/dL LAB HEMATOLOGY METHOD 11/06/2024 1:19 AM EDT [facility] HCT 26.2(L) 40.0 - 51.0 % LAB HEMATOLOGY METHOD 11/06/2024 1:19 AM EDT [facility] Platelet Count 542(H) 155 - 369 10*3/uL LAB HEMATOLOGY METHOD 11/06/2024 1:19 AM EDT [facility] MCV 91 79 - 98 fL LAB HEMATOLOGY METHOD 11/06/2024 1:19 AM EDT [facility] MCH 30.4 26.0 - 32.0 pg LAB HEMATOLOGY METHOD 11/06/2024 1:19 AM EDT [facility] MCHC 33.6 30.7 - 35.5 g/dL LAB HEMATOLOGY METHOD 11/06/2024 1:19 AM EDT [facility] RDW 13.2 11.5 - 14.5 % LAB HEMATOLOGY METHOD 11/06/2024 1:19 AM EDT [facility] MPV 8.7(L) 8.8 - 12.5 fL LAB HEMATOLOGY METHOD 11/06/2024 1:19 AM EDT [facility] nRBC 0.0 <=0.0 per 100 WBCs LAB HEMATOLOGY METHOD 11/06/2024 1:19 AM EDT [facility] Blood Venous blood specimen / Unknown Venipuncture / Unknown 11/06/2024 1:07 AM EDT 11/06/2024 1:12 AM EDT us Nathaly Nowak MD LAB BLOOD ORDERABLES Final Resu lt [facility] [address] [place] [address] * Gold Top (11/06/2024 12:58 AM EDT) Extra Hold for add-ons 11/06/2024 3:21 AM EDT [facility] Comment:Auto resulted. Blood Venous blood specimen / Unknown 11/06/2024 12:58 AM EDT 11/06/2024 1:13 AM EDT us Nathaly Nowak MD LAB BLOOD ORDERABLES Final Resu lt Performing Organization Address City/[facility]/ZIP Co de Phone Number [facility] [address] [place] [address] * Gold Top (11/06/2024 12:58 AM EDT) Extra Hold for add-ons 11/06/2024 3:21 AM EDT [facility] Comment:Auto resulted. Blood Venous blood specimen / Unknown 11/06/2024 12:58 AM EDT 11/06/2024 1:13 AM EDT us Nathaly Nowak MD LAB BLOOD ORDERABLES Final Resu lt Performing Organization Address [facility]/ZIP Co de Phone Number [facility] [address] [place] [address] * Light Green Top (11/06/2024 12:58 AM EDT) Extra Hold for add-ons 11/06/2024 3:21 AM EDT [facility] Comment:Auto resulted. Blood Venous blood specimen / Unknown 11/06/2024 12:58 AM EDT 11/06/2024 1:13 AM EDT us Nathaly Nowak MD LAB BLOOD ORDERABLES Final Resu lt Performing Organization Address City/[facility] Co de Phone Number [facility] [address] [place] [address] * Light Blue Top (11/06/2024 12:58 AM EDT) Extra Hold for add-ons 11/06/2024 3:21 AM EDT [facility] Comment:Auto resulted. Blood Venous blood specimen / Unknown 11/06/2024 12:58 AM EDT 11/06/2024 1:13 AM EDT Nathaly Nowak MD LAB BLOOD ORDERABLES Final Resu lt Performing Organization Address [facility] Co de Phone Number [facility] [address] [place] [address] * Light Blue Top (11/06/2024 12:58 AM EDT) Pathologist [facility] Extra Hold for add-ons 11/06/2024 3:21 AM EDT [facility] Comment:Auto resulted. Blood Venous blood specimen / Unknown 11/06/2024 12:58 AM EDT 11/06/2024 1:13 AM EDT Nathaly Nowak MD LAB BLOOD ORDERABLES Final Resu lt Performing Organization Address [facility] Phone Number [facility] [address] [place] [address] * (ABNORMAL) POCT glucose meter (11/06/2024 12:45 AM EDT) Pathologist [facility] POCT Glucose 204(H) 74 - 99 mg/dL [...] 11/06/2024 12:48 AM EDT [facility] Finance Broker ID Raj Laird 11/07/19 25 12:48 AM EDT [facility] Device ID [id number] 11/06/2024 12:48 AM EDT [facility] Specimen Type POC Capillary 11/06/2024 12:48 AM EDT [facility] Blood Capillary blood specimen / Unknown 11/06/2024 12:45 AM EDT 11/06/2024 12:48 AM EDT us Nathaly Nowak MD LAB POINT OF CARE TE ST DOCKED DEVICE UNSOLICITED RESULTS Final Result [facility] [address] [place] [address] documented in this encounter Visit Diagnoses Diagnosis [...] on Mon11/06/24 at 0031, Until [facility] 11/14/24 at 1804, Routine, line care sodium [...] on Mon11/06/24 at 0753, Until [facility] 11/14/24 at 1804, Routine, On Unit - Preprocedure, line care sodium chloride 0.9 % flush 10 mL 10 mL, Intravenous, Every 12 hours, First dose on [facility] 11/09/24 at 1515, Until Discontinued, Routine Given 11/14/2024 2:42 PM EDT 10 mL Given 11/14/2024 3:03 AM EDT 10 mL Given 11/13/2024 4:43 PM EDT 10 mL Sodium Hypochlorite (Dakin's (HALF-Strength)) external solution 1 Application Irrigation, Daily, First dose on [facility] 11/09/24 at 0945, Until Discontinued, Routine Given [...] Provider: Devora Bo)1805 (Given - Provider: Devora oB)2123 (Given - Provider: Jonathan Vale RN) 0838 (Given - Provider: Devora Bo)1317 (Given - Provider: Devora Bo)1753 (Given - Provider: Devora Bo)2032 (Given - Provider: Jonathan Vale, CHRITSIAN) 0856 (Given - Provider: Yazmin Bhatt, CHRISTIAN)1354 (Given - Provider: Yazmin Bhatt, CHRISTIAN)1800 (Canceled Entry - Provider: Automatic Discharge Provider - Comment: Automatically canceled at discontinue of medication order) metoprolol tartrate (Lopressor) tablet 100 mg 100 mg, Oral, 2 times daily, First dose on Mon11/06/24 at 0040, Until Discontinued, Routine 09 (Given - Provider: Devora Bo)2122 (Given - Provider: Jonathan Vale, CHRISTIAN) 08 (Given - Provider: Devora Bo)2031 (Given [...] documented as of this encounter Care Teams Competitive Shopper Relationship Specialty Start Date End Date Asad Victor MD [address] [place] [address] BISI Marshall [id number] PCP - General 10/07/22 documented as of this encounter
--- OUTSIDE RECORDS SUMMARY | 2024-11-06 10:47 | XMS_ITS | Encounter Summary ---
Author Organization Healthcare Address [address] [place] [address] Care Team Providers Care Upstream Biomanufacturing Technician Name Role Phone Asad Victor MD Primary Care Provider + [phone] Reason for Visit * Auth/Cert (Routine) Specialty Diagnoses / Procedures Referred By Contac t Referred To Contact Diagnoses Wound infection Post-op Vasc Sx wounds - sx on 10/17 at Nathaly Nowak MD [address] [facility] [address] [place] [address] Phone: tel: fax: [facility] A Emergency Department [address] [place] [address] Phone: tel: Referral ID Status Reason Start Date Expiration Date Visits Re quested Visits Authorized [id number] 1 1 Encounter Details Date Type Department Care Team (Late st Contact Info) Description 11/06/2024 10:47 AM EDT Anesthesia Event [facility] A OPERATING ROOM [address] [place] [address] Bill Sue MD [address] [place] [address] Sabrina Mckeon PA [address] [facility] [address] [place] [address] Anesthesia Record Procedure Summary Procedure [...] any time in the past 12 m [facility], were you homeless or living in [...] drink first t dino in the morning (EYE-NUCLEAR EQUIPMENT RESEARCH ENGINEER) to steady your nerves or to [...] and Staff Patient location during procedure: OR CO FOUNDER AND DIRECTOR: Asad Lechuga CRNA, DNP Performed: CO FOUNDER AND DIRECTOR Patient Condition Indications for airway management: anesthesia [...] placement (Left) Location: [facility]-A OR 16 / [place] OR Surgeons: Nathaly Nowak MD [facility] Mono Ana Bobby is a 64 [...] QT Interval 390 QTC Interval 464 P [place] 52 R [place] 263 T Wave [place] 57 Diagnosis Atrial-sensed ventricular-paced rhythm Diagnosis Biventricular [...] is no recent study available for direct pdot-ph-hyjn comparison. [facility]: Pre-operative CIED Report Assessment and Sara- Procedural Reommendations: Name: Mono Bobby Date: 10/17/2024 : 1960 Age: 64 y.o. Patient has a Traverse Rod Assembler: Berger PARAPROFESSIONAL AIDE TEACHER-PM Remaining battery longevity adequate. Lead integrity [...] RVR s/p CABG), CAD (CAD s/p multiple MA's and 3V CABG02/2019, 2 stents prior to CABG), carotid artery disease (carotid artery disease s/p R CEA 2016), dysrhythmias (3rd degree AV block PARAPROFESSIONAL AIDE TEACHER-P placed 08/2023 for Wenkeback with 11 sec pause), hyperlipidemia, pacemaker and PVD. Does not have angina, CHF, murmur, orthopnea, syncope or valvular heart disease. hypertension: Cardio additional comments: Follows with OSH Card last seen 09/25/24 ([place]) . Respiratory: home oxygen (2L). no asthma: [...] ENDARTERECTOMY N/A 2017 Endarterectomy Carotid Artery from [employer] CORONARY ANGIOPLASTY Left Coronary Angiography With Concomitant Left Heart Catheterization from [employer] CORONARY ARTERY BYPASS GRAFT N/A 2018 3V ELBOW SURGERY Right ENDARTERECTOMY Left 10/17/2024 common/SFA/Profunda thromboendarterectomy, EIA/CARVING MACHINE OPERATOR stent HERNIA REPAIR KNEE ARTHROSCOPY Left VASCULAR SURGERY Left 09/21/2024 CARVING MACHINE OPERATOR pseudoaneurym injection [5] Social History [...] Description 11/26/2024 2:00 PM EDT Appointment [facility] [address] [place] [address] 11/26/2024 2:30 PM EDT Appointment [facility] [address] [place] [address] 11/26/2024 3:20 PM EDT Office Visit [facility] [address] [place] [address] Elisabet Schuster PA [address] [facility] [address] [place] [address] 11/29/2024 2:30 PM EDT Office Visit [place] [place] [address] Oscar Appiah MD [address] [facility] [address] [place] [address] documented as of this encounter [...] and Staff Patient location during procedure: OR CO FOUNDER AND DIRECTOR: Asad Lechuga CRNA, DNP Performed: ISH Patient [...] documented as of this encounter Care Teams Upstream Biomanufacturing Technician Relationship Specialty Start Date End Date Asad Victor MD [address] [place] [address] PCP - General 10/07/22 documented as of this encounter
--- OUTSIDE RECORDS SUMMARY | 2024-11-18 13:10 | XMS_ITS | Encounter Summary ---
Author Organization [employer] ([place], [place], [place], [place]) Address [address] [place] [address] Care Team Providers Care Structural Fitter Name Role Phone Unavailable Primary Care Provider Unavailabl e Reason for Visit * Reason Comments Wound Care Encounter Details Date Type Department Care Team (Late st Contact Info) Description 11/18/2024 1:10 PM EDT Office Visit [facility] 1 [place] [address] Jerry Monroe Jr., MD [address] [place] [address] Non-pressure chronic ulcer of skin of [...] health nurse( if you have home health) [facility] for an appointment. documented in this [...] upper leg. Patient was admitted to the [facility] on November 05, 2024 and dischargedon November [...] line. Patient is getting daily infusions at [facility] through his PICC line for antibiotics. [...] the correct patient, procedure, equipment, technical support agent, and site/side marked as required. Debridement Details [...] the correct patient, procedure, equipment, technical support agent, and site/side marked as required. 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) Localized tissue (HCC) Other specified local infections of the skin and subcutaneous tissue [place] DEBRIDEMENT MUSCLE &/FASCIA EA ADDL 20 SQ CM Routine 11/18/2024 1:10 PM EDT 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) Localized tissue (HCC) Other specified local infections of the skin and subcutaneous tissue [place] DEBRIDEMENT MUSCLE &/FASCIA 1ST 20 SQ CM/< Routine 11/18/2024 1:10 PM EDT 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) Localized tissue (HCC) Other specified local infections of the skin and subcutaneous tissue [place] DEBRIDEMENT MUSCLE &/FASCIA EA ADDL 20 SQ CM Routine 11/18/2024 1:10 PM EDT 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) Localized tissue (HCC) Other specified local infections of the skin and subcutaneous tissue [place] DEBRIDEMENT MUSCLE &/FASCIA EA ADDL 20 SQ CM Routine 11/18/2024 1:10 PM EDT 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) Localized tissue (HCC) Other specified local infections of the skin and subcutaneous tissue [place] DEBRIDEMENT MUSCLE &/FASCIA 1ST 20 SQ CM/< Routine 11/18/2024 1:10 PM EDT 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 Debridement Details [...] MD PROCEDURE/MINOR SURGICAL ORDERABLES Final Result * [place] DEBRIDEMENT MUSCLE &/FASCIA 1ST 20 SQ CM/<, [place] DEBRIDEMENT MUSCLE &/FASCIA EA ADDL 20SQ CM, [place] DEBRIDEMENT MUSCLE &/FASCIA EA ADDL 20 SQ [...] the correct patient, procedure, equipment, technical support agent, and site/side marked as required. Debridement Details [...]
--- OUTSIDE RECORDS SUMMARY | 2024-11-19 11:10 | XMS_ITS | Encounter Summary ---
Author Organization Healthcare Address [address] [place] [address] Care Team Providers Care Line Therapist Name Role Phone Asad Victor MD Primary Care Provider + [phone] Encounter Details Date Type Department Care Team [...] first t dino in the morning (EYE-SUMMER SCHOOL COORDINATOR) to steady your nerves or to [...] [facility] [address] [place] [address] 11/26/2024 2:30 PM EDT Appointment [facility] [address] [place] [address] 11/26/2024 3:20 PM EDT Office Visit [facility] [address] [place] [address] Elisabet Schuster PA [address] [place] [address] 11/29/2024 2:30 PM EDT Office Visit [place] [id number] [place] [address] [place] [address] [place] [address] [address] [place] [address] documented as of this encounter Visit Diagnoses Not on filedocumented in this encounter Additional Health Concerns Assessment Noted Time A Body Mass Index follow-up plan has been documented for the patient 09/22/2024 2:53 PM EDT documented as of this encounter Care Teams Line Therapist Relationship Specialty Start Date End Date Asad Victor MD [address] [place] [address] PCP - General 10/07/22 documented as of this encounter
--- OUTSIDE RECORDS SUMMARY | 2024-11-19 11:10 | XMS_ITS | Encounter Summary ---
Author Organization [facility] Address [address] [place] [address] Care Team Providers Care Pediatric Sports Medicine Specialist Name Role Phone Asad Victor MD Primary Care Provider + [phone] Encounter Details Date Type Department Care Team [...] drink first t dino in the morning (EYE-CHANNEL MARKETING MANAGER) to steady your nerves or to [...] Info) Description 11/26/2024 2:00 PM EDT Appointment [facility] [address] [facility] 5th Floor [address] [place] [address] 11/26/2024 2:30 PM EDT Appointment [facility] [address] [place] [address] 11/26/2024 3:20 PM EDT Office Visit [facility] [address] [facility] 5th Floor [address] [place] [address] Elisabet Schuster PA [address] [place] [address] 11/29/2024 2:30 PM EDT Office Visit [facility] [address] [place] [address] Oscar Appiah MD [address] [facility] [address] [facility] [address] [place] [address] documented as of this encounter Visit Diagnoses Not on filedocumented in this encounter Additional Health Concerns Assessment Noted Time A Body Mass Index follow-up plan has been documented for the patient 09/22/2024 2:53 PM EDT documented as of this encounter Care Teams Pediatric Sports Medicine Specialist Relationship Specialty Start Date End Date Asad Victor MD [address] [phone] PCP - General 10/07/22 documented as of this encounter
--- OUTSIDE RECORDS SUMMARY | 2024-11-19 11:10 | XMS_ITS | Encounter Summary ---
Author Organization Healthcare Address [address] [place] [address] Care Team Providers Care Physical Sciences Professor Name Role Phone Asad Victor MD Primary Care Provider + [phone] Encounter Details Date Type Department Care Team (Late st Contact Info) Description 09/21/2024 Orders Only External Location [address] [place] [address] Provider, External Social History Tobacco Use Types [...] drink first t dino in the morning (EYE-SUSTAINABILITY ANALYST) to steady your nerves or to [...] Risk Indicated 09/22/2024 8:10 AM EDT Melecio Zuleat, CHRISTIAN * Question Answer Date of Assessment [...] Info) Description 11/26/2024 2:00 PM EDT Appointment [facility] [address] [place] [address] 11/26/2024 2:30 PM EDT Appointment [facility] [address] 5[address] [place] [address] 11/26/2024 3:20 PM EDT Office Visit [facility] [address] 5[address] [place] [address] Elisabet Schuster PA [address] [place] [address] 11/29/2024 2:30 PM EDT Office Visit [address] [address] Oscar Appiah MD [address] [place] [address] [address] [place] [address] documented as of this [...] as of this encounter Care Teams Physical Sciences Professor Relationship Specialty Start Date End Date Asad Victor MD [address] [place] [address] PCP - General 10/07/22 documented as of this encounter
--- OUTSIDE RECORDS SUMMARY | 2024-11-19 11:10 | XMS_ITS | Encounter Summary ---
Author Organization Healthcare Address [address] [place] [address] Care Team Providers Care Sheriffs Name Role Phone Asad Victor MD Primary Care Provider + [phone] Encounter Details Date Type Department Care Team (Late st Contact Info) Description 09/20/2024 Orders Only External Location [address] [place] [address] Timothy Marques PA [address] [place] [phone] Social History Tobacco Use Types Packs/Day Years [...] drink first t dino in the morning (EYE-PLANT ACCOUNTANT) to steady your nerves or to get [...] Appointment [facility] [address] [facility] 5th Floor [address] [place] [address] 11/26/2024 2:30 PM EDT Appointment [facility] [address] [facility] 5th Floor [address] [place] [phone] 11/26/2024 3:20 PM EDT Office Visit [facility] [address] [facility] 5th Floor [address] [place] [address] Elisabet Schuster, GLENDA [address] [facility] [address] [place] [address] 11/29/2024 2:30 PM EDT Office Visit [facility] [address] [place] [address] Oscar Appiah MD [address] [facility] [address] [place] [address] documented as of this encounter Procedures Procedure [...] documented as of this encounter Care Teams Sheriffs Relationship Specialty Start Date End Date Asad Victor MD [address] [place] [address] PCP - General 10/07/22 documented as of this encounter
--- OUTSIDE RECORDS SUMMARY | 2024-11-19 11:10 | XMS_ITS | Encounter Summary ---
Author Organization Healthcare Address [address] [place] [address] Care Team Providers Care Computer Lab Aide Name Role Phone Asad Victor MD Primary Care Provider + [phone] Encounter Details Date Type Department Care Team (Late st Contact Info) Description 09/20/2024 Orders Only External Location [address] [place] [address] Timothy Marques PA [address] [place] [phone] Social History Tobacco Use Types Packs/Day Years [...] drink first t dino in the morning (EYE-BELT NOTCHER) to steady your nerves or to get [...] Info) Description 11/26/2024 2:00 PM EDT Appointment [facility] [address] [place] [address] 11/26/2024 2:30 PM EDT Appointment [facility] [address] [facility] 5th Floor [address] [place] [address] 11/26/2024 3:20 PM EDT Office Visit [facility] [address] [facility] 5th Floor [address] [place] [address] Elisabet Schuster, GLENDA [address] [facility] [address] [place] [address] 11/29/2024 2:30 PM EDT Office Visit [facility] [address] [place] [address] Oscar Appiah MD [address] [facility] [address] [place] [address] documented as of this encounter Procedures Procedure [...] documented as of this encounter Care Teams Computer Lab Aide Relationship Specialty Start Date End Date Asad Victor MD [address] [place] [address] PCP - General 10/07/22 documented as of this encounter
--- OUTSIDE RECORDS SUMMARY | 2024-11-19 11:13 | XMS_ITS | Encounter Summary ---
Author Organization [facility] Address [address] [place] [address] Care Team Providers Care Cut Off Machine Helper Name Role Phone Asad Victor MD Primary Care Provider + [phone] Encounter Details Date Type Department Care Team [...] drink first t dino in the morning (EYE-MUFFLER TENDER) to steady your nerves or to get [...] [facility] [address] 5th Floor [address] [place] [address] 11/26/2024 2:30 PM EDT Appointment [facility] [address] 5th [address] [place] [address] 11/26/2024 3:20 PM EDT Office Visit [facility] [address] 5th [address] [place] [address] Elisabet Schuster, PA [address] [place] [address] 11/29/2024 2:30 PM EDT Office Visit [facility] [address] [facility] [place] [address] Oscar Appiah MD [address] [facility] [place] [facility] [address] [place] [address] documented as of this encounter [...] documented as of this encounter Care Teams Cut Off Machine Helper Relationship Specialty Start Date End Date Asad Victor MD [address] [place] [address] PCP - General 10/07/22 documented as of this encounter
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
--- OUTSIDE RECORDS SUMMARY | 2024-11-19 11:13 | XMS_ITS | Encounter Summary ---
Author Organization Healthcare Address [address] [id number] Care Team Providers Care Software Engineer Web Services Name Role Phone Asad Victor MD Primary Care Provider + [phone] Reason for Visit * Reason Onset Date Comments HCN Clinical Concern/Question 11/15/2024 Encounter Details Date Type Department Care Team (Late st Contact Info) Description 11/15/2024 Telephone [facility] [address] [facility] 5th Floor [address], [address] [place] [address] Nathaly Nowak MD [address] [facility] [address] [place] [address] HCN Clinical Concern/Question Social History [...] drink first t dino in the morning (EYE-AUGER OPERATOR) to steady your nerves or to [...] with info. Thank you Best contact number: [phone] (mobile) Optimal time of day to reach caller: ANYTIME Additional comments/information from caller: None Note: Please do not reply to this message. Follow-up communication and further actions as a result of this message need to be communicated with the patient directly, if the patient is not active onMyChart. If the patient is active on MyChart, they will receive notification of the communication/outcome via ScaleMPhart. documented in this encounter Plan of Treatment Upcoming Encounters Date Type Department Care Team (Late st Contact Info) Description 11/26/2024 2:00 PM EDT Appointment [facility] [address] [facility] 5th Floor [address] [place] [address] 11/26/2024 2:30 PM EDT Appointment [facility] [address] [facility] 5th Floor [address] [place] [address] 11/26/2024 3:20 PM EDT Office Visit [facility] [address] 5th [address] [place] [address] Elisabet Schuster PA [address] [place] [address] 11/29/2024 2:30 PM EDT Office Visit [facility] [address] [place] [address] Oscar Appiah MD [address] [facility] 100 [place] [address] documented as of this encounter Goals Goal [...] documented as of this encounter Care Teams Software Engineer Web Services Relationship Specialty Start Date End Date Asad Victor MD [address] [place] [address] PCP - General 10/07/22 documented as of this encounter
--- OUTSIDE RECORDS SUMMARY | 2024-11-19 11:14 | XMS_ITS | Encounter Summary ---
Author Organization [facility] Address [address] [place] [address] Care Team Providers Care Dampener Operator Name Role Phone Asad Vitcor MD Primary Care Provider + [phone] Encounter Details Date Type Department Care Team [...] drink first t dino in the morning (EYE-TRAFFIC RATE CLERK) to steady your nerves or to [...] Info) Description 11/26/2024 2:00 PM EDT Appointment [facility] [address] 5th Floor [address] [place] [address] 11/26/2024 2:30 PM EDT Appointment [facility] [address] 5th Floor [address], [address] [place] [address] 11/26/2024 3:20 PM EDT Office Visit [facility] [address] 5th Floor [address] [place] [address] Elisabet Schuster, PA [address] [place] [address] 11/29/2024 2:30 PM EDT Office Visit [facility] [address] [facility] [place] [address] Oscar Appiah MD [address] [facility] [address] [place] [address] documented as of this encounter [...] documented as of this encounter Care Teams Dampener Operator Relationship Specialty Start Date End Date Asad Victor MD [address] [place] [address] PCP - General 10/07/22 documented as of this encounter
--- OUTSIDE RECORDS SUMMARY | 2024-11-19 11:14 | XMS_ITS | Encounter Summary ---
Author Organization Healthcare Address [address] [id number] Care Team Providers Care Admissions Evaluator Name Role Phone Asad Victor MD Primary Care Provider + [phone] Encounter Details Date Type Department Care Team (Late st Contact Info) Description 10/22/2024 Telephone Vascular Surgery [address] [place] [address] Alison Beltrán, GAS CUTTER, DNP [address] [facility] [address] [place] [address] Social History Tobacco Use Types Packs/Day Years [...] drink first t dino in the morning (EYE-PMP CERTIFIED PROJECT MANAGER) to steady your nerves or to [...] Notes * Telephone Encounter - Alison Beltrán, GAS CUTTER, DNP - 10/22/2024 11:39 AM EDT Returned patient call. Patient s/p left common/superficial/profunda femoral thromboendarterectomy with bovine patch repair and left external iliac artery/MUSIC MINISTRIES DIRECTOR stent with Dr Gautam on 10/17/24. Patient [...] Info) Description 11/26/2024 2:00 PM EDT Appointment [facility] [address] [place] [address] 11/26/2024 2:30 PM EDT Appointment [facility] [address] [place] [address] 11/26/2024 3:20 PM EDT Office Visit [facility] [address] [place] [address] Elisabet Schuster, PA [address] [facility] [address] [place] [address] 11/29/2024 2:30 PM EDT Office Visit [facility] [address] [place] [address] Oscar Appiah MD [address] [facility] [address] [place] [address] documented as of this encounter [...] documented as of this encounter Care Teams Admissions Evaluator Relationship Specialty Start Date End Date Asad Victor MD [address] [place] [address] PCP - General 10/07/22 documented as of this encounter
--- OUTSIDE RECORDS SUMMARY | 2024-11-19 11:15 | XMS_ITS | Encounter Summary ---
Author Organization Healthcare Address [address] [place] [address] Care Team Providers Care Equipment Inspector Name Role Phone Asad Victor MD Primary Care Provider + [phone] Encounter Details Date Type Department Care Team (Late st Contact Info) Description 10/17/2024 Orders Only External Location [address] [place] [address] Provider, External Social History Tobacco Use Types [...] drink first t dino in the morning (EYE-BDC MANAGER) to steady your nerves or to get rid of a hangover? 0 10/18/2021 CAGE Questionnaire Score 0 022 Utilities Answer Date Recorded In the past 12 months has th e [employer], gas, oil, or water [employer] threatened to shut off services in your [...] [facility] [address] [facility] 5th Floor [address], [address] [place] [address] 11/26/2024 2:30 PM EDT Appointment [facility] [address] [facility] 5th Floor [address], [address] [place] [address] 11/26/2024 3:20 PM EDT Office Visit [facility] [address] [facility] 5th Floor [address] [place] [address] Elisabet Schuster PA [address] [place] [address] 11/29/2024 2:30 PM EDT Office Visit [address] [place] [address] [place] [address] [place] [address] 100 [place] [address] documented as of this encounter [...] documented as of this encounter Care Teams Equipment Inspector Relationship Specialty Start Date End Date Asad Victor MD [address] [place] [address] PCP - General 10/07/22 documented as of this encounter
--- OUTSIDE RECORDS SUMMARY | 2024-11-19 11:15 | XMS_ITS | Encounter Summary ---
Author Organization [facility] Address [address] [place] [address] Care Team Providers Care Automotive Professional Name Role Phone Asad Victor MD Primary Care Provider + [phone] Encounter Details Date Type Department Care Team [...] drink first t dino in the morning (EYE-BREAK AND LOAD OPERATOR) to steady your nerves or to [...] Description 11/26/2024 2:[address] [facility] [address] [place] [address] 11/26/2024 2:[address] [facility] [address] [place] [address] 11/26/2024 3:20 PM EDT Office Visit [facility] [address] 5th Floor [address] [place] [address] Elisabet Schuster, PA [address] [place] [address] 11/29/2024 2:30 PM EDT Office Visit [facility] [address] [place] [address] Oscar Appiah MD [address] [facility] [address] [place] [address] documented as of this encounter [...] as of this encounter Care Teams Automotive Professional Relationship Specialty Start Date End Date Asad Victor MD [address] [place] [address] PCP - General 10/07/22 documented as of this encounter
--- OUTSIDE RECORDS SUMMARY | 2024-11-19 11:15 | XMS_ITS | Encounter Summary ---
Author Organization [facility] Address [address] [place] [address] Care Team Providers Care Steam Service Inspector Name Role Phone Asad Victor MD Primary Care Provider + [phone] Encounter Details Date Type Department Care Team [...] any time in the past 12 m [facility], were you homeless or [...] drink first t dino in the morning (EYE-EDUCATION TEACHER) to steady your nerves or to [...] [facility] [address] [facility] 5th Floor Wing [address], [address] [place] [address] 11/26/2024 2:30 PM EDT Appointment [facility] [address] [place] [address] 11/26/2024 3:20 PM EDT Office Visit [facility] [address] [facility] 5th Floor [address] [place] [address] Elisabet Schuster PA [address] [place] [address] [place] [address] 11/29/2024 2:30 PM EDT Office Visit [place] [address] [place] [address] Oscar Appiah MD [address] [place] [address] [address] [place] [address] documented as of this encounter [...] documented as of this encounter Care Teams Steam Service Inspector Relationship Specialty Start Date End Date Asad Victor MD [address] [facility] [place] [address] PCP - General 10/07/22 documented as of this encounter
--- OUTSIDE RECORDS SUMMARY | 2024-11-19 11:15 | XMS_ITS | Clinical Summary ---
Author Organization [employer] ([place], [place], [place], [place]) Address [address] [place] [address] Care Team Providers Care Pupil Personnel Services Director Name Role Phone Unavailable Primary Care Provider Unavailabl e Allergies No known active allergies Medications clopidogreL (PLAVIX) 75 mg tablet Take 1 tablet (75 mg total) by mouth daily Look-alike/ Sound-alike medication. Active docusate sodium (COLACE) 100 MG capsule Take 1 capsule (100 mg total) by mouth daily. Active insulin glargine (LANTUS, SEMGLEE) 100 unit/mL injection Inject 28 Units under the skin nightly Use as directed. Active insulin lispro (HUMALOG, ADMELOG) 100 unit/mL injection Inject 12 Units under the skin 3 (three) times daily before meals. Active lisinopriL (ZESTRIL) 10 MG tablet Take 1 tablet (10 mg total) by mouth daily. Active metoprolol tartrate (LOPRESSOR) 25 MG tablet Take 1 tablet (25 mg total) by mouth 2 (two) times daily. Active ondansetron (ZOFRAN) 4 MG tablet Take 1 tablet (4 mg total) by mouth every 6 (six) hours as needed for nausea or vomiting. Active oxyCODONE (OXY-IR) 5 mg capsule Take 1 capsule (5 mg total) by mouth every 4 (four) hours as needed for pain. Max Daily Amount: 30 mg Active pravastatin (PRAVACHOL) 40 MG tablet Take 1 tablet (40 mg total) by mouth nightly. Active rOPINIRole (REQUIP) 1 MG tablet Take 1 tablet (1 mg total) by mouth 2 (two) times daily. Active tamsulosin (FLOMAX) 0.4 mg cap 24 hr capsule Take 1 capsule (0.4 mg total) by mouth daily. Active aspirin 81 MG chewable tablet Take 1 tablet (81 mg total) by mouth daily. Active ertapenem (INVanz) 1 g in NS 50 mL MBP Infuse 1 g into a venous catheter once Once a day. Active mICAFUNGin 150 mg in D5W 100 mL (V2B) IVPB Infuse 150 mg into a venous catheter daily. 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); Localized tissue (HCC); Other specified local infections of the skin and subcutaneous tissue; Diabetes mellitus with skin ulcer (HCC) 11/18/2024 Travel from Last 3 Months Social History Tobacco Use Types Packs/Day Years [...] Mass Index 31.01 11/18/2024 2:41 PM EDT Plan of Treatment Upcoming Encounters Date Type Department Care Team (Late st Contact Info) Description 11/20/2024 2:15 PM EDT Clinical Support [facility] [place] [address] [place] [address] 11/22/2024 4:15 PM EDT Clinical Support [facility] [place] [address] [place] [address] Health Maintenance Due Date Last Done Comments CT Colonography 1959 Colonoscopy 1959 Colorectal Cancer Screening 1959 Diabetic Kidney Health Evaluation (KED) 1959 FOBT/FIT 1959 Fit-DNA (Cologuard) 1959 Sigmoidoscopy 1959 Diabetic Eye Exam 1969 Depression Screening (12+) 1971 HIV Screening 1974 Hepatitis C Screening 1977 DTAP/TDAP/TD VACCINES (1 - Tdap) 1978 Lipid Panel 1994 Respiratory Syncytial Virus (RSV) Adult or (1 - Risk 60-74 years 1-dose series) 2019 Shingles Vaccine (Zoster) (2 of 2) 02/04/20212020 Pneumococcal 50+ years (2 of 2 - PCV) 03/11/2021 COVID-19 VACCINE (3 - season) 2023, 07/31/2020 Abdominal Aortic Aneurysm (AAA) Screen 2024 Falls Risk Screening 03/27/2024 Medicare IPPE (Welcome to Medicare) [id number] 03/27/2024 Hemoglobin A1C 11/18/2024 Influenza Vaccine (#1) 2024 02/06/2021 Tobacco Cessation Counseling and Screening (12+) 11/18/2025 11/18/2024 Procedures Procedure Name Priority Date/Time Associated Diagnosis Comments GA DEBRIDEMENT MUSCLE &/FASCIA EA ADDL 20 SQ CM Routine 11/18/2024 1:10 PM EDT 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) Localized tissue (HCC) Other specified local infections of the skin and subcutaneous tissue GA DEBRIDEMENT MUSCLE &/FASCIA EA ADDL 20 SQ CM Routine 11/18/2024 1:10 PM EDT 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) Localized tissue (HCC) Other specified local infections of the skin and subcutaneous tissue GA DEBRIDEMENT MUSCLE &/FASCIA 1ST 20 SQ CM/< Routine 11/18/2024 1:10 PM EDT 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) Localized tissue (HCC) Other specified local infections of the skin and subcutaneous tissue GA DEBRIDEMENT MUSCLE &/FASCIA EA ADDL 20 SQ CM Routine 11/18/2024 1:10 PM EDT 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) Localized tissue (HCC) Other specified local infections of the skin and subcutaneous tissue GA DEBRIDEMENT MUSCLE &/FASCIA EA ADDL 20 SQ CM Routine 11/18/2024 1:10 PM EDT 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) Localized tissue (HCC) Other specified local infections of the skin and subcutaneous tissue GA DEBRIDEMENT MUSCLE &/FASCIA 1ST 20 SQ CM/< Routine 11/18/2024 1:10 PM EDT 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 Debridement [...] MD PROCEDURE/MINOR SURGICAL ORDERABLES Final Result * GA DEBRIDEMENT MUSCLE &/FASCIA 1ST 20 SQ CM/<, GA DEBRIDEMENT MUSCLE &/FASCIA EA ADDL 20SQ CM, GA DEBRIDEMENT MUSCLE &/FASCIA EA ADDL 20 SQ [...] provider verified the correct patient, procedure, equipment, ground crewman aircraft support, and site/side marked as required. Debridement [...] Jr., MD PROCEDURE/MINOR SURGICAL ORDERABLES Final Result from Last 3 Months Insurance [facility] ADV DUAL COMPLETE MEDICAID [place]
--- OUTSIDE RECORDS SUMMARY | 2024-11-19 11:15 | XMS_ITS | Encounter Summary ---
Author Organization Healthcare Address [address] [place] [address] Care Team Providers Care Javascript Software Engineer Name Role Phone Asad Victor MD Primary Care Provider + [phone] Encounter Details Date Type Department Care Team (Late st Contact Info) Description 11/05/2024 Orders Only External Location [address] [place] [address] Provider, External Social History Tobacco Use Types [...] drink first t dino in the morning (EYE-ELEMENTARY SCHOOL TEACHER) to steady your nerves or to get rid of a hangover? 0 10/18/2021 CAGE Questionnaire Score 0 022 Utilities Answer Date Recorded In the past 12 months has th e [employer], gas, oil, or water company threatened to [...] [facility] [address] [facility] 5th Floor [address] [place] [address] 11/26/2024 2:30 PM EDT Appointment [facility] Lab [address] [facility] 5th Floor [address] [place] [address] 11/26/2024 3:20 PM EDT Office Visit [facility] [address] 5th Floor [address] [place] [address] Elisabet Schuster PA [address] [place] [address] 11/29/2024 2:30 PM EDT Office Visit [address] [place] [address] Oscar Appiah MD [address] [place] [address] [address] [place] [address] documented as of this encounter [...] documented as of this encounter Care Teams Javascript Software Engineer Relationship Specialty Start Date End Date Asda Victor MD [address] [place] [address] PCP - General 10/07/22 documented as of this encounter
--- OUTSIDE RECORDS SUMMARY | 2024-11-19 11:15 | XMS_ITS | Referral Summary ---
Author Organization [employer] ([place], [place], [place], [place]) Address [address] [place] [address] Care Team Providers Care Retail Consultant Name Role Phone Unavailable Primary Care Provider Unavailabl e Encounters Date Type Department Care Team Description 11/18/2024 Travel 11/18/2024 1:10 PM EDT Office Visit 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 [address] [place] [address] 11/22/2024 4:15 PM EDT Clinical Support [facility] [place] 1 [place] [address] Procedures Procedure Name Priority Date/Time Associated Diagnosis [...] tissue from Last 3 Months Results * [place] DEBRIDEMENT MUSCLE &/FASCIA 1ST [...] verified the correct patient, procedure, equipment, support worker, and site/side marked as required. Debridement Details [...] verified the correct patient, procedure, equipment, support worker, and site/side marked as required. Debridement Details [...] Final Result from Last 3 Months Insurance [facility] ADV DUAL COMPLETE MEDICAID OF [place]
--- OUTSIDE RECORDS SUMMARY | 2024-11-19 11:15 | XMS_ITS | Encounter Summary ---
Author Organization Healthcare Address [address] [place] [address] Care Team Providers Care Credit Advisor Name Role Phone Asad Victor MD Primary Care Provider + [phone] Encounter Details Date Type Department Care Team (Late st Contact Info) Description 11/15/2024 Clinical Support [address] [place] [address] Charly Orlando, PharmD [address] [place] [address] [address] [place] [address] Social History Tobacco Use Types [...] any time in the past 12 m [facility], were you homeless or living [...] drink first t dino in the morning (EYE-TRACTOR DRIVER TEAMSTER) to steady your nerves or to get rid of a hangover? 0 10/18/2021 CAGE Questionnaire Score 0 022 Utilities Answer Date Recorded In the past 12 months has th e [employer], gas, oil, or water company threatened to [...] Appointment [facility] Lab [address] 5th Floor [address] [place] [address] 11/26/2024 2:30 PM EDT Appointment [facility] [address] 5th Floor [address] [place] [address] 11/26/2024 3:20 PM EDT Office Visit [facility] [address] 5th Floor [address] [place] [address] Elisabet Schuster, PA [address] [place] [address] 11/29/2024 2:30 PM EDT Office Visit [facility] [address] [facility] [place] [address] Oscar Appiha MD [address] [facility] [address] [place] [address] documented as of this encounter [...] as of this encounter Care Teams Credit Advisor Relationship Specialty Start Date End Date Asad Victor MD [address] [place] [address] PCP - General 10/07/22 documented as of this encounter
--- OUTSIDE RECORDS SUMMARY | 2024-11-19 11:15 | XMS_ITS | Encounter Summary ---
Author Organization [employer] ([place], [place], [place], [place]) Address [address] [place] [address] Care Team Providers Care Seamer Elastic Band Name Role Phone Unavailable Primary Care Provider Unavailabl e Encounter Details Date Type Department Care Team (Latest Contact Info) Description 11/18/2024 Travel Social History Tobacco Use Types Packs/Day Years Used Date Smoking Tobacco: Former Cigarettes Q uit: 03/27/2016 Smokeless Tobacco: Never Sex and Gender Information Value Date Recorded Sex Assigned at Not on file Legal Sex Male 1:35 PM CDT Gender Identity Not on file Sexual Orientation Not on file documented as of this encounter Plan of Treatment Upcoming Encounters Date Type Department Care Team (Late st Contact Info) Description 11/20/2024 2:15 PM EDT Clinical Support [facility] 1 [place] [address] 11/22/2024 4:15 PM EDT Clinical Support [facility] [address] [place] [address] documented as of this encounter Visit Diagnoses Not on filedocumented in this encounter
--- OUTSIDE RECORDS SUMMARY | 2024-11-19 11:17 | XMS_ITS | Encounter Summary ---
Author Organization Healthcare Address [address] [place] [address] Care Team Providers Care Record Changer Tester Name Role Phone Asad Victor MD Primary Care Provider + [phone] Encounter Details Date Type Department Care Team [...] drink first t dino in the morning (EYE-ENGRAVER HAND HARD METALS) to steady your nerves or to get [...] [facility] [address] 5th Floor [address] [place] [address] 11/26/2024 2:30 PM EDT Appointment [facility] [address] 5th Floor [address] [place] [address] 11/26/2024 3:20 PM EDT Office Visit [facility] [address] 5th Floor [address] [place] [address] Elisabet Schuster PA [address] [place] [address] 11/29/2024 2:30 PM EDT Office Visit [facility] [address] [place] [address] Oscar Appiah MD [address] [facility] [address] [place] [address] documented as of this encounter Visit Diagnoses Not on filedocumented in this encounter Additional Health Concerns Assessment Noted Time A Body Mass Index follow-up plan has been documented for the patient 09/22/2024 2:53 PM EDT documented as of this encounter Care Teams Record Changer Tester Relationship Specialty Start Date End Date Asad Victor MD [address] [facility] [place] [address] PCP - General 10/07/22 documented as of this encounter
[2024-11-19 11:36] VITALS: BP 162/59; PULSE 68; RESP 18; TEMP 36.6; O2SAT 97
[2024-11-19] MEDS: MICAFUNGIN SODIUM IV (11:36)
[2024-11-19] MEDS: SODIUM CHLORIDE 0.9% IV (11:36)
[2024-11-19] MEDS: SODIUM CHLORIDE 0.9% 10ML FLUSH SYRINGE 10 ML IV (11:45)
[2024-11-19 12:06] VITALS: BP 155/60; PULSE 70; RESP 18; O2SAT 98
[2024-11-19 12:42] VITALS: BP 166/56; PULSE 74; RESP 18; O2SAT 98
[2024-11-19] MEDS: ERTAPENEM SODIUM 1 GM in 0.9 % SODIUM CHLORIDE 50 ML IV (12:42)
[2024-11-19 13:30] VITALS: BP 159/66; PULSE 75; RESP 18; O2SAT 97
== END 2024-11-19 13:30 | disposition home or self-care (01) ==
LOC: INF 11:01
PROVIDERS: PCP Family Medicine
DX: T14.8XXA Other injury of unspecified body region, initial encounter (principal); Y93.9 Activity, unspecified; Y92.9 Unspecified place or not applicable
CPT/HCPCS: 96365; 96367; J1335; J2248

== ENCOUNTER 2024-11-20 10:50 | Outpatient (CLI) | payer MEDICARE, OTHER, SELFPAY ==
--- OUTSIDE RECORDS SUMMARY | 2024-09-20 21:25 | XMS_ITS | Encounter Summary ---
Author Organization [facility] Address [address] [id number] Care Team Providers Care Trim Stencil Maker Name Role Phone Asad Victor MD Primary Care Provider + [phone] Reason for Visit * Auth/Cert (Routine) Specialty Diagnoses / Procedures Referred By Contac t Referred To Contact Diagnoses Pseudoaneurysm of left femoral artery (CMS/HCC) PSUEDO ANEURYSM Nathaly Nowak MD [address] [address] Phone: tel: fax: [facility] A Emergency Department [address] [place] [address] Phone: tel: Referral ID Status Reason Start Date Expiration Date Visits Re quested Visits Authorized [id number] 1 1 Encounter Details Date Type Department Care Team (Latest Contact Info) Description 09/20/2024 9:25 PM EDT - 09/22/2024 4:00 PM EDT Hospital Encounter [facility] Inpatient [address] [place] [address] Robbie Braxton MD [address] [place] [address] Nathaly Nowak MD [address] [id number] [place] [address] Pseudoaneurysm of left femoral artery [...] drink first t dino in the morning (EYE-BANK BOSS) to steady your nerves or to get [...] to schedule you next surgery. Questions: Call [phone] during business hours on week or call [facility]'s after hours at [phone] to speak with a resident irrigation worker for Vascular Surgery after 5pm or on [...] Carmona with any questions or concerns at [phone]. It is important that you get your [...] T2DM, HLD, HTN, RLS who presented to [facility] with a large left common femoral [...] discharge instructions. No distress noted. Patient to sheepskin pickler meds to beds medications upon discharge. Awaiting his ride to arrive. Patient states his discharge ride is about 40 minutes away. * [facility] - Melecio Vega RN - 09/22/2024 2:52 PM EDT Images from the original note were not included. [id number] Peripheral Artery Disease (PAD) Peripheral artery disease [...] cause. Last Reviewed Date: 2024 00:00:00 ?? [id number] [employer]. All rights reserved. This information is not intended as a substitute for professional medical care. Always follow your healthcare professional's instructions. * [facility] Melecio Vega RN - 09/22/2024 2:52 PM EDT Images from the original note were not included. [id number] Taking Aspirin for Atherosclerosis Aspirin is a [...] This includes: ? All prescription medicines ? [id number]-[id number] medicines ? Herbs, vitamins, and other supplements [...] pain Last Reviewed Date: 2022 00:00:00 ?? [id number] [employer]. All rights reserved. This information is not [...] name and Address: Asad Victor MD (Inactive) [address] [place] [address] / [facility], [place] [address] Referring provider name and address: Timothy Marques PA [address] [place] [address] Chief Concern, Brief History of Present Illness, and Hospital Course Mono Bobby is a 64 y.o. male with PMHx notable for COPD, CAD s/p PCI with pacemaker on Xarelto, T2DM, HLD, HTN, RLS who presented to [facility] with a large left common femoral [...] These medications were sent to [facility] [place], [place] - [address] [facility] [address] oxyCODONE 5 MG immediate release tablet Discharge [...] soap and water daily. Pat to dry. Adams/ sutures will be removed at postoperative follow [...] to schedule you next surgery. Questions: Call [phone] during business hours on weekdays or call [facility]'s after hours at [phone] to speak with a resident irrigation worker for Vascular Surgery after 5pm or on [...] Carmona with any questions or concerns at [phone]. It is important that you get your [...] and Manage Fall Risk Flowsheets (Taken 09/22/2024 7704) Safety Promotion/Fall Prevention: activity supervised assistive device/personal [...] Regular diet - Repeat duplex 09/22 - [facility] - consider IO cath if sensation [...] from the original note were not included. [facility] Department of Surgery Division of Vascular Surgery Surgery Progress Note 09/21/24 Mono Bobby Subjective Subjective: HPI Mono Bobby is a 64 y.o. 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 09/21: Thrombin injection of left common femoral artery pseudoaneurysm Interval: NAEON. He reports feeling well. Still having some groin pain. Duplex confirmed PSA. Discussed treatment with thrombin injection and pt would like to proceed. AF HDS RA No I/O Edited by: Anthony Keenan MD at 09/21/2024 5390 Review of Systems: Relevant review of systems [...] reviewed. Labs reviewed. Assessment/Plan Assessment and Plan: Moon Bobby is a 64 y.o. 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 Duplex today confirmed it was a pseudoaneurysm. Thrombin injection performed today. He tolerated the procedure well. POC later tonight. Plan: [ ] Post op check at 1999 - Continue strict bedrest - Regular diet - Duplex 09/21: showed FISH FRYER pseudoaneurysm - Repeat duplex 09/22 - [facility] Edited by: Anthony Keenan MD at 09/21/2024 9708 Dispo: Continue Current Level of Care Philipp Keenan MD General Surgery, PGY 1 Pager: [phone] Cosigned by Terrell Gautam MD at 09/23/2024 [...] femoral artery pseudoaneurysm Attending Surgeon(s): Terrell Gautam Executive Vp(s): Jerry Holcomb Anesthesia: local ASA: 3 Blood [...] pseudoaneurysm sac is far away from the levelock artery as possible. Very slowly 0.2 cc [...] from the original note were not included. [facility] Department of Surgery Division of [...] RLS who presented to the [facility] on 09/20/2024 as a transfer [...] At that time, the patient presented to [facility] and underwent an updated CTA which demonstrated concern for a left common femoral artery pseudo aneurysm. He was transferred to the [facility] for a higher level of [...] MINUTES. IF NO RELIEF AFTER 3 DOSES LEUK213/GO TO ER 11/02/21 Darby Camara MD pravastatin [...] T2DM, HLD, HTN, RLS who presented to [facility] with a large left common femoral [...] ongoing surgical planning. Plan: - Admit to [facility] - Strict bedrest - NPO, mIVF - Will discuss surgical options in the morning Dispo: Admit to [facility] CODE STATUS: full code This Consult, Assessment, and Plan has been discussed with Dr. Noawk, Attending Physician Shaila Lord [1] Past Medical History: Diagnosis Date Arthritis Old myocardial infarction History of myocardial infarction [2] No Known Allergies [3] Past Surgical History: Procedure Laterality Date ANKLE SURGERY Right CAROTID ENDARTERECTOMY N/A Endarterectomy Carotid Artery from [facility] CORONARY ANGIOPLASTY Left Coronary Angiography With Concomitant Left Heart Catheterization from [facility] CORONARY ARTERY BYPASS GRAFT N/A CABG from [facility] ELBOW SURGERY Right OTHER SURGICAL HISTORY N/A Reported Prior Surgical / Procedural History from [facility] [4] Family History Problem Relation Name Age [...] MINUTES. IF NO RELIEF AFTER 3 DOSES RUOG274/GO TO ER pravastatin (Pravachol) 80 MG tablet [...] accompanied by pain [facility]. In the emergency department they obtained a CTA with runoff of the lower extremities which found a left-sided femoral pseudoaneurysm. The patient was transferred here for higher level of care. He has not had any lower extremity pallor, pain, weakness, or sensory changes. History provided by: Patient and medical records oil producer used: No Patient History Past Medical History[1] [...] CAROTID ENDARTERECTOMY N/A Endarterectomy Carotid Artery from [facility] CORONARY ANGIOPLASTY Left Coronary Angiography With Concomitant Left Heart Catheterization from [facility] CORONARY ARTERY BYPASS GRAFT N/A CABG from [facility] ELBOW SURGERY Right OTHER SURGICAL HISTORY N/A Reported Prior Surgical / Procedural History from [facility] [3] Family History Problem Relation Name Age [...] - 09/20/2024 9:22 PM EDT Arrived from [facility] [facility] c/o left groin pain pt had stent x2 on 09/12 went to cardiology and was told to go to hospital. documented in this encounter Plan of Treatment Upcoming Encounters Date Type Department Care Team (Late st Contact Info) Description 11/26/2024 2:00 PM EDT Hospital Encounter [facility] [address] [place] [address] 11/26/2024 2:30 PM EDT Hospital Encounter [facility] [address] [place] [address] 11/26/2024 3:20 PM EDT Office Visit [facility] [address] [place] [address] Elisabet Schuster, GLENDA [address] [place] [id number] 11/29/2024 2:30 PM EDT Office Visit [facility] [address] [place] [address] Oscar Appiah MD [address] [place] [address] documented as of this encounter [...] Comment 09/22/2024 11:11 AM EDT [facility] Crayon Sorting Machine Feeder ID Zena Rios 025 11:11 AM EDT HEALTHCARE LAB Device ID [id number] 09/22/2024 11:11 AM EDT HEALTHCARE LAB Specimen Type POC Capillary 09/22/2024 11:11 AM EDT [facility]ARE LAB Blood Capillary blood specimen / Unknown 09/22/2024 11:06 AM EDT 09/22/2024 11:11 AM EDT us Nathaly Nowak MD LAB POINT OF CARE TE ST DOCKED DEVICE UNSOLICITED RESULTS Final Result Performing Organization Address City/State/[facility] Co de Phone Number HEALTHCARE LAB [address] [place] [address] * VAS US Arterial Duplex Lower Extremity [...] 7:15 PM EDT CLINICAL INDICATION: s/p L FISH FRYER pseudoaneurysm injection TECHNIQUE: Non-invasive, real time duplex [...] sac. The following flow velocities were obtained: FISH FRYER: 114 cm/s SFA: 0 cm/s PFA: 278 cm/s Popliteal A: 41 cm/s DIGITAL MARKETING ASSOCIATE distal: 43 cm/s DPA: 67 cm/s Pseudoaneurysm sac: 0 cm/s Procedure Note Neil Isaac MD - 09/22/2024 CLINICAL INDICATION: s/p L FISH FRYER pseudoaneurysm injection TECHNIQUE: Non-invasive, real time duplex [...] pseudoaneurysm sac. The following flowvelocities were obtained: FISH FRYER: 114 cm/s SFA: 0 cm/s PFA: 278 cm/s Popliteal A: 41 cm/s DIGITAL MARKETING ASSOCIATE distal: 43 cm/s DPA: 67 cm/s Pseudoaneurysm [...] Comment 09/22/2024 7:22 AM EDT HEALTHCARE LAB Crayon Sorting Machine Feeder ID Zena Rios 025 7:22 AM EDT [facility] Device ID [id number] 09/22/2024 7:22 AM EDT [facility] Specimen Type POC Capillary 09/22/2024 7:22 AM EDT [facility] Blood Capillary blood specimen / Unknown 09/22/2024 7:19 AM EDT 09/22/2024 7:22 AM EDT Result [facility] Nathaly Nowak MD LAB POINT OF CARE TE ST DOCKED DEVICE UNSOLICITED RESULTS Final Result [facility]ALTH[facility]ARE [facility] [address] [place] [address] * Magnesium (09/22/2024 3:49 AM EDT) Pathologist [facility] Magnesium, Plasma 2.1 1.9 - 2.4 mg/dL 09/22/2024 4:49 AM EDT [facility] Blood Venous blood specimen / Unknown Venipuncture / Unknown 09/22/2024 3:49 AM EDT 09/22/2024 4:12 AM EDT us Nathaly Nowak MD LAB BLOOD ORDERABLES Final Resu lt [facility] [address] [place] [address] * Phosphorus (09/22/2024 3:49 AM EDT) [facility] Phosphorus, Plasma 2.9 2.5 - 4.5 mg/dL 09/22/2024 4:49 AM EDT [facility] Blood Venous blood specimen / Unknown Venipuncture / Unknown 09/22/2024 3:49 AM EDT 09/22/2024 4:12 AM EDT Nathaly Nowak MD LAB BLOOD ORDERABLES Final Resu lt Performing Organization Address City/[facility]/ZIP Co de Phone Number [facility] [address] [place] [address] * (ABNORMAL) Basic metabolic panel (09/22/2024 3:49 AM EDT) [facility] Glucose, Plasma 132(H) 74 - 99 mg/dL 09/22/2024 4:49 AM EDT [facility] BUN, Plasma 15 8 - 23 mg/dL 09/22/2024 4:49 AM EDT [facility] Creatinine, Plasma 0.78 0.70 - 1.20 mg/dL 09/22/2024 4:49 AM EDT [facility] BUN/Creatinine Ratio 19 09/22/2024 4:49 AM EDT [facility] Sodium, Plasma 137 136 - 145 mmol/L 09/22/2024 4:49 AM EDT [facility] Potassium, Plasma 4.5 3.6 - 4.9 mmol/L 09/22/2024 4:49 AM EDT [facility] Chloride, Plasma 104 97 - 107 mmol/L 09/22/2024 4:49 AM EDT [facility] CO2, Plasma 24 22 - 29 mmol/L 09/22/2024 4:49 AM EDT [facility] Anion Gap 9 6 - 16 mmol/L 09/22/2024 4:49 AM EDT [facility] Total Calcium, Plasma 9.2 8.9 - 10.2 mg/dL 09/22/2024 4:49 AM EDT [facility] eGFRcr 99.0 mL/min/1.7 3m*2 09/22/2024 4:49 AM EDT [facility] Comment:Reported eGFRcr in m L/min/1.73m2 is based the CKD-EPI 2020 equation that does not use a race coefficient. Blood Venous blood specimen / Unknown Venipuncture / Unknown 09/22/2024 3:49 AM EDT 09/22/2024 4:12 AM EDT us Nathaly Nowak MD LAB BLOOD ORDERABLES Final Resu lt [facility] [address] [place] [address] * (ABNORMAL) CBC (09/22/2024 3:49 AM EDT) WBC Count 11.68(H) 3.70 - 10.30 10*3/uL LAB HEMATOLOGY METHOD 09/22/2024 4:26 AM EDT [facility] RBC Count 2.89(L) 4.60 - 6.10 10*6/uL LAB HEMATOLOGY METHOD 09/22/2024 4:26 AM EDT [facility] HGB 8.9(L) 13.7 - 17.5 g/dL LAB HEMATOLOGY METHOD 09/22/2024 4:26 AM EDT [facility] HCT 26.7(L) 40.0 - 51.0 % LAB HEMATOLOGY METHOD 09/22/2024 4:26 AM EDT [facility] Platelet Count 454(H) 155 - 369 10*3/uL LAB HEMATOLOGY METHOD 09/22/2024 4:26 AM EDT [facility] MCV 92 79 - 98 fL LAB HEMATOLOGY METHOD 09/22/2024 4:26 AM EDT [facility] MCH 30.8 26.0 - 32.0 pg LAB HEMATOLOGY METHOD 09/22/2024 4:26 AM EDT [facility] MCHC 33.3 30.7 - 35.5 g/dL LAB HEMATOLOGY METHOD 09/22/2024 4:26 AM EDT [facility] RDW 13.6 11.5 - 14.5 % LAB HEMATOLOGY METHOD 09/22/2024 4:26 AM EDT [facility] MPV 8.8 8.8 - 12.5 fL LAB HEMATOLOGY METHOD 09/22/2024 4:26 AM EDT [facility] nRBC 0.0 <=0.0 per 100 WBCs LAB HEMATOLOGY METHOD 09/22/2024 4:26 AM EDT [facility] Blood Venous blood specimen / Unknown Venipuncture / Unknown 09/22/2024 3:49 AM EDT 09/22/2024 4:14 AM EDT us Nathaly Nowak MD LAB BLOOD ORDERABLES Final Resu lt Performing Organization Address City/[facility]/ZIP Co de Phone Number [facility] [address] [place] [address] * (ABNORMAL) POCT glucose meter (09/21/2024 8:45 [...] 09/21/2024 8:47 PM EDT [facility] Crayon Sorting Machine Feeder ID Joy Reich 025 8:47 PM EDT HEALTHCARE LAB Device ID [id number] 09/21/2024 8:47 PM EDT [facility]ARE LAB Specimen Type POC Capillary 09/21/2024 8:47 PM EDT [facility] Blood Capillary blood specimen / Unknown 09/21/2024 8:45 PM EDT 09/21/2024 8:47 PM EDT us Nathaly Nowak MD LAB POINT OF CARE TE ST DOCKED DEVICE UNSOLICITED RESULTS Final Result Performing Organization Address City/[facility]/ZIP Co de Phone Number [facility] [address] [place] [address] * (ABNORMAL) POCT glucose meter (09/21/2024 5:09 [...] Comment 09/21/2024 5:11 PM EDT [facility] Crayon Sorting Machine Feeder ID Jojo Lange 025 5:11 PM EDT [facility]ALTH[facility]ARE LAB Device ID [id number] 09/21/2024 5:11 PM EDT [facility]ALTH[facility]ARE LAB Specimen Type POC Capillary 09/21/2024 5:11 PM EDT [facility] Blood Capillary blood specimen / Unknown 09/21/2024 5:09 PM EDT 09/21/2024 5:11 PM EDT us Nathaly Nowak MD LAB POINT OF CARE TE ST DOCKED DEVICE UNSOLICITED RESULTS Final Result [facility] [address] [place] [address] * VAS US Arterial Duplex Lower Extremity [...] 09/21/2024 7:35 PM EDT CLINICAL INDICATION: s/p FISH FRYER pseudoaneurysm injection TECHNIQUE: Non-invasive, real time duplex exam of the lower extremity arterial circulation with Doppler ultrasonic waveform and spectral analysis was performed. COMPARISON: None. FINDINGS: Left: Following thrombin injection, an echogenic thrombus is noted within the pseudoaneurysm sac. Color and pulsed Doppler analysis demonstrates an absence of flow within the pseudoaneurysm sac. The following flow velocities were obtained: FISH FRYER: 55 cm/s SFA: 0 cm/s Popliteal A: 51 cm/s DIGITAL MARKETING ASSOCIATE distal: 35 cm/s DPA: 61 cm/s Pseudoaneurysm sac: 0 cm/s Procedure Note Neil Isaac MD - 09/21/2024 CLINICAL INDICATION: s/p FISH FRYER pseudoaneurysm injection TECHNIQUE: Non-invasive, real time duplex exam of the lower extremity arterialcirculation with Doppler ultrasonic waveform and spectral analysis wasperformed. COMPARISON: None. FINDINGS: Left: Following thrombin injection, an echogenic thrombus is noted within thepseudoaneurysm sac. Color and pulsed Doppler analysis demonstrates anabsence of flow within the pseudoaneurysm sac. The following flowvelocities were obtained: FISH FRYER: 55 cm/s SFA: 0 cm/s Popliteal A: 51 cm/s DIGITAL MARKETING ASSOCIATE distal: 35 cm/s DPA: 61 cm/s Pseudoaneurysm [...] POCT glucose meter (09/21/2024 1:04 PM EDT) [facility] POCT Glucose 177(H) 74 - 99 [...] Comment 09/21/2024 1:09 PM EDT HEALTH[facility]ARE LAB Crayon Sorting Machine Feeder ID Ruth Solo 025 1:09 PM EDT HEALTHCARE LAB Device ID [id number] 09/21/2024 1:09 PM EDT [facility] Specimen Type POC Capillary 09/21/2024 1:09 PM EDT [facility] Blood Capillary blood specimen / Unknown 09/21/2024 1:04 PM EDT 09/21/2024 1:09 PM EDT Nathaly Nowak MD LAB POINT OF CARE TE ST DOCKED DEVICE UNSOLICITED RESULTS Final Result Performing Organization Address City/State/[facility] Co de Phone Number [facility] [address] [place] [address] * (ABNORMAL) POCT glucose meter (09/21/2024 12:24 PM EDT) [facility] POCT Glucose 153(H) 74 - 99 [...] Comment 09/21/2024 12:26 PM EDT [facility]ARE [facility] Crayon Sorting Machine Feeder ID Ruth Solo 025 12:26 PM EDT [facility] Device ID [id number] 09/21/2024 12:26 PM EDT [facility] Specimen Type POC Capillary 09/21/2024 12:26 PM EDT [facility] Blood Capillary blood specimen / Unknown 09/21/2024 12:24 PM EDT 09/21/2024 12:26 PM EDT us Nathaly Nowak MD LAB POINT OF CARE TE ST DOCKED DEVICE UNSOLICITED RESULTS Final Result [facility] [address] [place] [address] * VAS US Arterial Duplex Lower Extremity [...] neck. The following flow velocities were obtained: FISH FRYER: 93 cm/s SFA: 0 cm/s Popliteal A: 36 cm/s DIGITAL MARKETING ASSOCIATE distal: 34 cm/s DPA: 59 cm/s Pseudoaneurysm [...] neck. The following flow velocities were obtained: FISH FRYER: 93 cm/s SFA: 0 cm/s Popliteal A: 36 cm/s DIGITAL MARKETING ASSOCIATE distal: 34 cm/s DPA: 59 cm/s Pseudoaneurysm [...] for testing. Comment 09/21/2024 8:01 AM EDT [email or web address] Crayon Sorting Machine Feeder ID Germania, Ruth 025 8:01 AM EDT [email or web address] Device ID [id number] 09/21/2024 8:01 AM EDT [facility] Specimen Type POC Capillary 09/21/2024 8:01 AM EDT [facility] Blood Capillary blood specimen / Unknown 09/21/2024 7:55 AM EDT 09/21/2024 8:01 AM EDT Nathaly Nowak MD LAB POINT OF CARE TE ST DOCKED DEVICE UNSOLICITED RESULTS Final Result [facility] [address] [place] [address] * (ABNORMAL) POCT glucose meter (09/21/2024 6:06 [...] Comment 09/21/2024 6:09 AM EDT [facility] Crayon Sorting Machine Feeder ID Yuan Griffin 09/22/19 6:09 AM EDT HEALTHCARE LAB Device ID [id number] 09/21/2024 6:09 AM EDT [facility]ALTH[facility] Specimen Type POC Capillary 09/21/2024 6:09 AM EDT [facility] Blood Capillary blood specimen / Unknown 09/21/2024 6:06 AM EDT 09/21/2024 6:09 AM EDT Nathaly Nowak MD LAB POINT OF CARE TE ST DOCKED DEVICE UNSOLICITED RESULTS Final Result Performing Organization Address City/[facility]/ZIP Co de Phone Number [facility]ALTHCARE LAB [address] [place] [address] * (ABNORMAL) POCT glucose meter (09/21/2024 2:27 AM EDT) [facility] POCT Glucose 194(H) 74 - 99 [...] Comment 09/21/2024 2:34 AM EDT [facility] Crayon Sorting Machine Feeder ID Ana Maria Corea 09/21/2024 2:34 AM EDT HEALTH[facility]ARE LAB Device ID [id number] 09/21/2024 2:34 AM EDT [facility]ALTH[facility] LAB Specimen Type POC Capillary 09/21/2024 2:34 AM EDT [facility] Blood Capillary blood specimen / Unknown 09/21/2024 2:27 AM EDT 09/21/2024 2:34 AM EDT Nathaly Nowak MD LAB POINT OF CARE TE ST DOCKED DEVICE UNSOLICITED RESULTS Final Result Performing Organization Address City/[facility]/ZIP Co de Phone Number [facility]ARE [facility] [address] [place] [address] * ECG Adult (09/21/2024 2:00 AM EDT) Pathologist [facility] EKG DIAGNOSIS CLASS Abnormal MUSE ECG Ventricular Rate 85 BPM MUSE ECG Atrial Rate 85 BPM MUSE ECG ME Interval 146 ms MUSE ECG QRSD Interval 128 ms MUSE ECG QT Interval 390 ms MUSE ECG QTC Interval 464 ms MUSE ECG P [place] 52 degrees MUSE ECG R [place] 263 degrees MUSE ECG T Wave [place] 57 degrees MUSE ECG Diagnosis Atrial-sensed ventricular-pace [...] 1/2 Differentiation (09/20/2024 10:33 PM EDT) Pathologist [facility] HIV 1 & 2 Antibody/Antigen Screen Non Reactive Non Reactive 09/20/2024 11:39 PM EDT [facility] Comment:Screening for HIV 1 & 2 antibodies, and P24 antigen is NONREACTIVE. No confirmatory testing is required. Blood Venous blood specimen / Unknown Venipuncture / Unknown 09/20/2024 10:33 PM EDT 09/20/2024 10:54 PM EDT us Giorgi Perkins MD LAB BLOOD ORDERABLES Final Result [facility] [address] [place] [address] * Hepatitis C Antibody - ED (09/20/2024 10:33 PM EDT) [facility] Hepatitis C Antibody Negative Negative 09/20/2024 11:39 PM EDT [facility] Blood Venous blood specimen / Unknown Venipuncture / Unknown 09/20/2024 10:33 PM EDT 09/20/2024 10:53 PM EDT us Giorgi Perkins MD LAB BLOOD ORDERABLES Final Result Performing Organization Address City/[facility] Co de Phone Number [facility] [address] [place] [address] * APTT (09/20/2024 10:33 PM EDT) aPTT 28 25 - 35 sec LAB COAGULATION METHOD 09/21/2024 12:19 AM EDT [facility] Blood Venous blood specimen / Unknown Venipuncture / Unknown 09/20/2024 10:33 PM EDT 09/20/2024 10:42 PM EDT us Giorgi Perkins MD LAB BLOOD ORDERABLES Final Result Performing Organization Address [facility] de Phone Number [facility] [address] [place] [address] * PT-INR (09/20/2024 10:33 PM EDT) Prothrombin Time 14.0 12.0 - 14.3 sec LAB COAGULATION METHOD 09/21/2024 12:19 AM EDT [facility] INR 1.1 0.9 - 1.1 LAB COAGULATION METHOD 09/21/2024 12:19 AM EDT [facility] Blood Venous blood specimen / Unknown Venipuncture / Unknown 09/20/2024 10:33 PM EDT 09/20/2024 10:42 PM EDT Narrative [facility] - 09/21/2024 12:19 AM EDT [...] Perkins MD LAB BLOOD ORDERABLES Final Result [facility] [address] [place] [address] * (ABNORMAL) CBC w/diff (09/20/2024 10:33 PM EDT) WBC Count 13.38(H) 3.70 - 10.30 10*3/uL LAB HEMATOLOGY METHOD 09/20/2024 11:00 PM EDT [facility] RBC Count 2.91(L) 4.60 - 6.10 10*6/uL LAB HEMATOLOGY METHOD 09/20/2024 11:00 PM EDT [facility] HGB 9.0(L) 13.7 - 17.5 g/dL LAB HEMATOLOGY METHOD 09/20/2024 11:00 PM EDT [facility] HCT 27.2(L) 40.0 - 51.0 % LAB HEMATOLOGY METHOD 09/20/2024 11:00 PM EDT [facility] Platelet Count 407(H) 155 - 369 10*3/uL LAB HEMATOLOGY METHOD 09/20/2024 11:00 PM EDT [facility] MCV 94 79 - 98 fL LAB HEMATOLOGY METHOD 09/20/2024 11:00 PM EDT [facility] MCH 30.9 26.0 - 32.0 pg LAB HEMATOLOGY METHOD 09/20/2024 11:00 PM EDT [facility] MCHC 33.1 30.7 - 35.5 g/dL LAB HEMATOLOGY METHOD 09/20/2024 11:00 PM EDT [facility] RDW 13.6 11.5 - 14.5 % LAB HEMATOLOGY METHOD 09/20/2024 11:00 PM EDT [facility] MPV 9.0 8.8 - 12.5 fL LAB HEMATOLOGY METHOD 09/20/2024 11:00 PM EDT [facility] nRBC 0.0 <=0.0 per 100 WBCs LAB HEMATOLOGY METHOD 09/20/2024 11:00 PM EDT [facility] Differential Type Automated LAB HEMATOLOGY METHOD 09/20/2024 11:00 PM EDT [facility] Neutrophils % 77 % LAB HEMATOLOGY METHOD 09/20/2024 11:00 PM EDT [facility] Lymphocytes % 13 % LAB HEMATOLOGY METHOD 09/20/2024 11:00 PM EDT [facility] Monocytes % 8 % LAB HEMATOLOGY METHOD 09/20/2024 11:00 PM EDT [facility] Eosinophils % 1 % LAB HEMATOLOGY METHOD 09/20/2024 11:00 PM EDT [facility] Basophils % 0 % LAB HEMATOLOGY METHOD 09/20/2024 11:00 PM EDT [facility] Immature Granulocytes % 1 % LAB HEMATOLOGY METHOD 09/20/2024 11:00 PM EDT [facility] Neutrophils Absolute 10.28(H) 1.60 - 6.10 10*3/uL LAB HEMATOLOGY METHOD 09/20/2024 11:00 PM EDT [facility] Lymphocytes Absolute 1.67 1.20 - 3.90 10*3/uL LAB HEMATOLOGY METHOD 09/20/2024 11:00 PM EDT [facility] Monocytes Absolute 1.12(H) 0.30 - 0.90 10*3/uL LAB HEMATOLOGY METHOD 09/20/2024 11:00 PM EDT [facility] Eosinophils Absolute 0.14 0.00 - 0.50 10*3/uL LAB HEMATOLOGY METHOD 09/20/2024 11:00 PM EDT [facility] Basophils Absolute 0.05 0.00 - 0.10 10*3/uL LAB HEMATOLOGY METHOD 09/20/2024 11:00 PM EDT [facility] Immature Granulocytes Absolute 0.12(H) 0.00 - 0.06 10*3/uL LAB HEMATOLOGY METHOD 09/20/2024 11:00 PM EDT [facility] Blood Venous blood specimen / Unknown Venipuncture / Unknown 09/20/2024 10:33 PM EDT 09/20/2024 10:42 PM EDT Narrative [facility] - 09/20/2024 11:00 PM EDT Therapeutic decision making should be based on absolute values, rather than percentages. us Giorgi Perkins MD LAB BLOOD ORDERABLES Final Result [facility] [address] [place] [address] * (ABNORMAL) CMP (09/20/2024 10:33 PM EDT) Glucose, Plasma 170(H) 74 - 99 mg/dL 09/20/2024 11:03 PM EDT [facility] BUN, Plasma 27(H) 8 - 23 mg/dL 09/20/2024 11:03 PM EDT [facility] Creatinine, Plasma 0.93 0.70 - 1.20 mg/dL 09/20/2024 11:03 PM EDT [facility] BUN/Creatinine Ratio 29 09/20/2024 11:03 PM EDT [facility] Sodium, Plasma 134(L) 136 - 145 mmol/L 09/20/2024 11:03 PM EDT [facility] Potassium, Plasma 5.0(H) 3.6 - 4.9 mmol/L 09/20/2024 11:03 PM EDT [facility] Chloride, Plasma 101 97 - 107 mmol/L 09/20/2024 11:03 PM EDT [facility] CO2, Plasma 22 22 - 29 mmol/L 09/20/2024 11:03 PM EDT [facility] Anion Gap 11 6 - 16 mmol/L 09/20/2024 11:03 PM EDT [facility] Total Calcium, Plasma 9.1 8.9 - 10.2 mg/dL 09/20/2024 11:03 PM EDT [facility] Total Protein 6.6 6.3 - 7.9 g/dL 09/20/2024 11:03 PM EDT [facility] Albumin, Plasma 3.9 3.5 - 5.2 g/dL 09/20/2024 11:03 PM EDT [facility] AST, Plasma 11 10 - 50 U/L 09/20/2024 11:03 PM EDT [facility] ALT, Plasma 16 10 - 50 U/L 09/20/2024 11:03 PM EDT [facility] Alkaline Phosphatase, Plasma 132(H) 40 - 115 U/L 09/20/2024 11:03 PM EDT [facility] Total Bilirubin, Plasma 0.6 0.2 - 1.1 mg/dL 09/20/2024 11:03 PM EDT [facility] eGFRcr 91.1 mL/min/1.7 3m*2 09/20/2024 11:03 PM EDT [facility] Comment:Reported eGFRcr in m L/min/1.73m2 is based the CKD-EPI 2020 equation that does not use a race coefficient. Blood Venous blood specimen / Unknown Venipuncture / Unknown 09/20/2024 10:33 PM EDT 09/20/2024 10:42 PM EDT Giorgi Perkins MD LAB BLOOD ORDERABLES Final Result [facility] [address] [place] [address] documented in this encounter Visit Diagnoses Diagnosis [...] Cristiane Rivas RN - Comment: given after night court magistrate assesment) lisinopril tablet 10 mg 10 mg, [...] documented as of this encounter Care Teams Trim Stencil Maker Relationship Specialty Start Date End Date Asad Victor MD [address] [place] [address] PCP - General 10/07/22 documented as of this encounter
--- OUTSIDE RECORDS SUMMARY | 2024-10-11 10:15 | XMS_ITS | Encounter Summary ---
Author Organization [facility] Address [address] [place] [address] Care Team Providers Care Independent Consultant Name Role Phone Asad Victor MD Primary Care Provider + [phone] Encounter Details Date Type Department Care Team (Latest Contact Info) Description 10/11/2024 10:15 AM EDT Pre-Admission Testing [facility]op [facility] [address] [place] [phone] Preop testing (Primary Dx) Anesthesia Record Procedure [...] Hand; Site Prep: Chlorhexidine ; Local Anesth: [place]; Technique: Anatomical landmarks; Inserted by: CHRISTIAN Acuna; [...] G; Orientation: Right; Location: Axillary; Inserted by: HYDRAULIC TESTER; Securement: Sutured; Patient Tolerance: Tolerated well; Removal [...] drink first t dino in the morning (EYE-TRAVEL OT) to steady your nerves or to get [...] T2DM, HLD, HTN, RLS who presented to [facility] with a large left common [...] CEA 2016 + 3rd degree AV block ASSOCIATE PUBLISHER-P placed 08/2023 for Wenkeback with 11 sec pause + HLD + HTN - controlled + PAD 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 S/P intravascular lithotripsy of left common and external iliac artery with 2 continuous balloon mounted bare metal stents 09/12/24 on Xarelto and ASA + WILHELM occ, low energy for > year - had work-up recently in [place] (will get records) + peripheral edema LLE [...] ENDARTERECTOMY N/A 2017 Endarterectomy Carotid Artery from [facility] CORONARY ANGIOPLASTY Left Coronary Angiography With Concomitant Left Heart Catheterization from [facility] CORONARY ARTERY BYPASS GRAFT N/A 2018 3V ELBOW SURGERY Right OTHER SURGICAL HISTORY N/A Reported Prior Surgical / Procedural History from [facility] [5] No Known Allergies [6] Current Outpatient [...] card, photo ID, along with power of assistant prosecuting attorney, guardianship or advanced directives if applicable [...] Description 11/26/2024 2:00 PM EDT Hospital Encounter [facility] [address] [place] [address] 11/26/2024 2:30 PM EDT Hospital Encounter [facility] [address] [place] [address] 11/26/2024 3:20 PM EDT Office Visit [facility] [address] [place] [address] Elisabet Schuster PA [address] [place] [address] 11/29/2024 2:30 PM EDT Office Visit [facility] [address] [place] [address] Oscar Appiah MD [address] [facility] [address] [place] [address] documented as of this encounter [...] Modality Other Narrative 10/17/2024 9:50 AM EDT [facility]: Pre-operative CIED Report Assessment and Sara-Procedural Reommendations: Name: Mono Bobby Date: 10/17/2024 : 1960 Age: 64 y.o. Patient has a Natural Gas Shothole Driller: Berger ASSOCIATE PUBLISHER-PM Remaining battery longevity adequate. Lead integrity test [...] recommendations. Supporting reports can be found in [employer] file. us Emelina DOSHI CV IMPLANTABLE CARDIAC [...] documented as of this encounter Care Teams Independent Consultant Relationship Specialty Start Date End Date Asad Victor MD [address] [place] [address] PCP - General 10/07/22 documented as of this encounter
--- OUTSIDE RECORDS SUMMARY | 2024-10-16 14:45 | XMS_ITS | Encounter Summary ---
Author Organization [facility] Address [address] [place] [address] Care Team Providers Care Hand Candle Dipper Name Role Phone Asad Victor MD Primary Care Provider + [phone] Encounter Details Date Type Department Care Team (Latest Contact Info) Description 10/16/2024 2:45 PM EDT - 10/16/2024 11:59 PM EDT Hospital Encounter Cardiac Imaging [address] [place] [address] Discharge Disposition: Home or Self Care Social History Tobacco Use Types Packs/Day Years Used Date Smoking Tobacco: Former Cigarettes Passive Smoke Exposure: Past Smokeless Tobacco: Never Comments:Smoked 1-2 PPD for at least 30 [...] drink first t dino in the morning (EYE-WOOD MECHANIST) to steady your nerves or to get rid of a hangover? 0 10/18/2021 CAGE Questionnaire Score 0 022 Sex and Gender Information Value Date Recorded Sex Assigned at Not on file Legal Sex Male 8:57 PM EDT Gender Identity Not on file Sexual Orientation Not on file documented as of this encounter Medications at Time of Discharge clopidogrel (Plavix) 75 MG tablet Take 1 tablet by mouth daily. 30 tablet 3 10/20/2024 docusate sodium (Colace) 100 MG capsule Take 1 capsule by mouth daily. insulin glargine (Lantus) 100 UNIT/ML injection Inject 28 Units under the skin nightly. insulin lispro protamine-insulin lispro (HumaLOG Mix 75-25) (75-25) 100 UNIT/ML injection vial Inject 15 Units under the skin 2 times a day with meals. 30 mL 10/19/2024 lisinopril 10 MG tablet Take 1 tablet by mouth daily. 03/25/2019 metoprolol tartrate (Lopressor) 100 MG tablet Take 1 tablet by mouth 2 times a day. 08/29/2016 pravastatin (Pravachol) 40 MG tablet Take 1 tablet by mouth nightly. 03/28/2019 rivaroxaban (Xarelto) 20 MG tablet Take 1 tablet by mouth 1 time each day with dinner. Take with food. 30 tablet 3 10/19/2024 rOPINIRole (Requip) 1 MG tablet Take 2 tablets by mouth 2 times a day. 10/19/2024 tamsulosin (Flomax) 0.4 MG 24 hr capsule Take 1 capsule by mouth every evening. 09/30/2022 acetaminophen (Tylenol) 500 MG tablet Take 2 tablets by mouth every 8 hours for 10 days. 60 tablet 10/19/2024 Aspirin Low Dose 81 MG EC tablet Take 1 tablet by mouth daily. 09/28/2022 insulin aspart protamine-insulin aspart (NovoLOG Mix 70-30) (70-30) 100 UNIT/ML injection vial Inject 15 Units under the skin 2 times a day with meals. 10 mL 10/19/2024 insulin aspart protamine-insulin aspart (NovoLOG Mix 70-30) (70-30) 100 UNIT/ML injection Inject 12 Units under the skin 2 times a day with meals. insulin lispro protamine-insulin lispro (HumaLOG Mix 75-25) (75-25) 100 UNIT/ML injection vial Inject 12 Units under the skin 2 times a day with meals. 5 isosorbide mononitrate ER (Imdur) 60 MG 24 hr tablet Take 1 tablet by mouth daily. 01/31/2019 5 ondansetron ODT (Zofran-ODT) 4 MG disintegrating tablet Dissolve 1 tablet on the tongue every 6 hours as needed for nausea or vomiting. 20 tablet 10/19/2024 5 oxyCODONE (Roxicodone) 5 MG immediate release tablet Take 1 tablet by mouth every 4 hours as needed for moderate pain or severe pain for up to 15 doses. 15 tablet 10/19/2024 5 rOPINIRole (Requip) 1 MG tablet Take 1 tablet by mouth 2 times a day. 5 Xarelto 2.5 MG tablet Take 1 tablet by mouth 2 times a day. 09/20/2022 5 documented as of this encounter Plan of Treatment Upcoming Encounters Date Type Department Care Team (Late st Contact Info) Description 11/26/2024 2:00 PM EDT Hospital Encounter [facility] Vascular Lab [address] [place] [address] 11/26/2024 2:30 PM EDT Hospital Encounter [facility] [address] [place] [address] 11/26/2024 3:20 PM EDT Office Visit [facility] [address] [place] [address] Elisabet Schuster, GLENDA [address] [facility] [address] [place] [address] 11/29/2024 2:30 PM EDT Office Visit [place] [address] [place] [address] Oscar Appiah MD [address] [facility] [address] [place] [address] documented as of this encounter Goals Goal [...] Modality Other Narrative 10/17/2024 9:50 AM EDT [facility]: Pre-operative CIED Report Assessment and Sara-Procedural Reommendations: Name: Mono Bobby Date: 10/17/2024 : 1960 Age: 64 y.o. Patient has a Test Analyst: Berger ACID CLEANER-PM Remaining battery longevity adequate. Lead integrity test [...] recommendations. Supporting reports can be found in [employer] media file. Emelina DOSHI CV IMPLANTABLE CARDIAC DEV ICE PROCEDURES Final Result documented in this encounter Visit Diagnoses Not on filedocumented in this encounter Additional Health Concerns Active Problems Noted Date Diagnosed Date Autogenerated Problem 09/23/2024 Assessment Noted Time A Body Mass Index follow-up plan has been documented for the patient 09/22/2024 2:53 PM EDT documented as of this encounter Care Teams Hand Candle Dipper Relationship Specialty Start Date End Date Asad Victor MD [address] [facility] [address] [place] [id number] PCP - General 10/07/22 documented as of this encounter
--- OUTSIDE RECORDS SUMMARY | 2024-10-17 06:21 | XMS_ITS | Encounter Summary ---
Author Organization [facility] Address [address] [id number] Care Team Providers Care Postpartum Nurse Name Role Phone Asad Victor MD Primary Care Provider [phone] Reason for Referral * Imaging (Routine) - Authorized Specialty Diagnoses / Procedures Referred By Susan t Referred To Contact Cardiology Diagnoses Critical limb ischemia of left lower extremity Pseudoaneurysm of left femoral artery (CMS/HCC) Procedures VAS US Arterial Duplex Lower Extremity Unilateral Left Terrell Gautam MD [address] [address] Phone: tel: fax: Referral ID Status Reason Start Date Expiration Date Visits Requested Visits Authorized [id number] Authorized Perform Procedure 10/19/2024 04/20/2026 1 1 * Imaging (Routine) - Authorized Specialty Diagnoses / Procedures Referred By Contac t Referred To Contact Cardiology Diagnoses Critical limb ischemia of left lower extremity Pseudoaneurysm of left femoral artery (CMS/HCC) Procedures VAS Ankle Brachial Index - Segmental Terrell Gautam MD [id number] [place] [address] Phone: tel: fax: Referral ID Status Reason Start Date Expiration Date Visits Requested Visits Authorized [id number] Authorized Perform Procedure 10/19/2024 04/20/2026 1 1 * Consultation (Routine) - Authorized Specialty Diagnoses / Procedures Referred By Contact Referred To Contact Vascular Surgery / [facility] Diagnoses Critical limb ischemia of left lower extremity Pseudoaneurysm of left femoral artery (CMS/HCC) Terrell Gautam MD [address] [place] [address] Phone: tel:[phone] fax:[phone] [facility] [address] [place] [address] 5th Floor [address] [place] [address] Phone: tel: fax: Referral ID Status Reason Start Date Expiration Date Visits Requested Visits Authorized [id number] Authorized Specialty Services Required 10/19/2024 04/20/2026 [address] Gautam, with SIL, arterial duplex Reason for Visit * Auth/Cert (Routine) Specialty Diagnoses / Procedures Referred By Susan t Referred To Contact Diagnoses Critical limb ischemia of left lower extremity Critical limb ischemia of left lower extremity [I70.222] Procedures MI VEIN BYPASS GRAFT,FEM-POP CREATION, BYPASS, ARTERIAL, FEMORAL TO POPLITEAL Terrell Gautam MD [address] [place] [address] Phone: tel: fax: [facility] A OPERATING ROOM [address] [place] [address] Phone: tel: Referral ID Status Reason Start Date Expiration Date Visits Re quested Visits Authorized [id number] 1 1 Encounter Details Date Type Department Care Team (Latest Contact Info) Description 10/17/2024 6:21 AM EDT - 10/19/2024 12:39 PM EDT Hospital Encounter [facility] H Inpatient [address] [place] [address] Terrell Gautam MD [address] [place] [address] Pseudoaneurysm of left femoral artery (CMS/HCC) [...] any time in the past 12 m [facility], were you homeless or living in a group home (including now)? No 10/18/2024 CAGE ASSESSMENT Answer [...] drink first t dino in the morning (EYE-WRAPPER HAND) to steady your nerves or to get rid of a hangover? 0 10/18/2021 CAGE Questionnaire Score 0 022 Utilities Answer Date Recorded In the past 12 months has th [place], gas, oil, or water Urban Gentleman threatened to shut off services in your [...] patient Goal: Patient-Specific Goal (Individualized) 10/19/20241144 by Keyla Chow Outcome: Met 10/19/2024 1048 [...] provided Taken 10/17/20242107 by Jourdan Grimes II varnish cooker Review/Management: medications reviewed Problem: Skin Injury Risk [...] Ongoing, Progressing Intervention: Promote Activity and Functional [place] Flowsheets (Taken 10/19/2024 1048) Self-Care Promotion: BADL personal objects within reach meal set-up provided * Yuni Ramires - Keyla Chow - 10/19/2024 11:45 AM EDT Images from the original note were not included. [id number] After Peripheral Artery Bypass Surgery: In the [...] home. Last Reviewed Date: 2023 00:00:00 ?? [id number] [employer]. All rights reserved. This information is not intended as a substitute for professional medical care. Always follow your healthcare professional's instructions. * Progress Notes - Emelina Friend - 10/19/2024 11:44 AM EDT Case Management Adult Progress Note Bev Bobby 64 y.o. male CSN: [id number] Admission: 10/17/2024 6:21 AM Primary Problem: Critical [...] if any other needs arise. Emelina Friend SHAREPOINT ENGINEER, STEAM HEATING INSTALLER Social Work Case Management * Yuni OviJOSE MANUEL Chow Keyla - 10/19/2024 11:44 AM EDT Images from the original note were not included. [id number] Peripheral Artery Disease (PAD) Peripheral artery disease [...] cause. Last Reviewed Date: 2024 00:00:00 ?? [id number] [employer]. All rights reserved. This information is not intended as a substitute for professional medical care. Always follow your healthcare professional's instructions. * Yuni DiorNAVYA - Keyla Chow - 10/19/2024 11:44 AM EDT Images from the original note were not included. [id number] Leg Artery Emergencies: Critical Limb Ischemia (CLI) [...] appointments. Last Reviewed Date: 2023 00:00:00 ?? [id number] [employer]. All rights reserved. This information is not intended as a substitute for professional medical care. Always follow your healthcare professional's instructions. * Discharge Summary - Dandy Baltazar MD - 10/19/2024 11:31 AM EDT Hospitalization Admit Date/Time: 10/17/2024 6:21 AM Admitting Attending: Terrell Gautam Discharge Date: 10/19/24 Discharge Attending Physician: Nirmal Cueto MD PCP name and Address: Asad Victor MD (Inactive) [address] [place] [address] / [facility] [address] Referring provider name and address: Timothy Marques PA [address] [place] [address] Chief Concern, Brief History of Present Illness, and Hospital Course Bev Bobby is an 64 y.o. 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 He [...] Your Medications These medications were sent to [facility] - [place], [place] - [address], [facility] [address] acetaminophen 500 MG tablet clopidogrel 75 MG [...] of water. 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 He [...] reach meal set-up provided Taken 10/17/20242107 by Jouradn Grimes II, varnish cooker Review/Management: medications reviewed Problem: Skin Injury Risk [...] Ongoing, Progressing Intervention: Promote Activity and Functional [place] Flowsheets (Taken 10/19/2024 1048) Self-Care Promotion: BADL [...] evaluation. PARTICIPANTS IN CARE Visitors Present No Summer Nanny (if applicable) PRESENTATION Oxygen Oxygen Therapy: None [...] Level of Mobility Ambulatory- household only Mobility [place] Independent gait with device (rollator) History of [...] numbness in rodney) BED MOBILITY Level of [place] Physical/Non- physical Assist Adaptive Equipment Utilized Rolling/ Turning Scooting/ Bridging Modified independence (anteriorly to EOB) Bed rails Supine to Sit Modified [place] (to the right) (HOB flat) Bed rails Sit to Supine Interventions HOB flat to simulate home environment TRANSFERS Level of [place] Physical/Non- physical Assist Adaptive Equipment Utilized Sit [...] stable surfaces during transitions. AMBULATION Level of [place] Distance Adaptive Equipment Utilized Ambulation Standby assist, [...] Posture: Forward head, Rounded shoulders Level of [place] Balance Support Interventions Static Sit Independent Right [...] 3-5 steps with a railing?: A little [facility] 6-Clicks Mobility Assessment Total : 22 ASSESSMENT [...] evaluation/session. Participants in Care Family/Caregiver Present: No Summer Nanny: Not Applicable Presentation Oxygen Therapy: None (Room [...] Level of Mobility: Ambulatory- household only Mobility [place]: Independent gait with device (rollator) History of [...] Mobility Bed Mobility Exam: Scooting/Bridging Level of [place]: Modified independence (anteriorly to EOB) Assistive Device: Bed rails Bed Mobility Exam: Supine to Sit Level of [place]: Modified [place] (to the right) Physical/Nonphysical Assist: (HOB flat) Assistive Device: Bed rails Transfers Transfer Exam: Sit to stand Level of [place]: Stand-by assist Physical/Nonphysical Assist: Supervision, Verbal Cues, Minimal cues Assistive Device: Walker, rolling Transfer Exam: Stand to Sit Level of [place]: Stand-by assist Physical/Nonphysical Assist: Supervision, Verbal Cues, [...] regarding toileting at this time. Standardized Assessments [facility] 6-Click Daily Activities Help from Other: Don/Doff Regular Lower Body Clothings: None Help From Other: Bathing: Little Help From Other: Toileting: None Help From Other: Don/Doff Upper Body Clothings: None Help From Other: Grooming: None Help From Other: Eating Meals: None [facility] 6 Click - Daily Activities Score: 23/24 [facility] Scoring Interpretation: Scores greater than 20.5 suggest [...] Note Bev Bobby 64 y.o. male CSN: [id number] Admission: 10/17/2024 6:21 AM Primary Problem: Critical limb ischemia of left lower extremity Microstrategy Architect reviewed chart and spoke with patient to complete this Initial Case Management Assessment. PCP: Asad Victor MD (Inactive) - Dr. Palomo Preferred pharmacy is [facility] Emergency Contact: Extended Emergency Contact Information Primary Emergency Contact: Patti Hill Relation: Sister Summer Nanny needed? No Insurance: Primary Visit Coverage Payer Plan Sponsor Code Group Number Group Name [facility] MEDICARE [facility] MEDICARE REPLACEMENT [id number] Primary Visit Coverage Subscriber Subscriber ID Subscriber Name Subscriber N Subscriber Address [id number] BEV BOBBY [id number] [place] [address] Secondary Visit Coverage Payer Plan Sponsor Code Group Number Group Name [facility] Secondary Visit Coverage Subscriber Subscriber ID Subscriber Name Subscriber N Subscriber Address [id number] BEV BOBBY [id number] [place] [address] Patient information: Primary Caregiver: Self Daily Living Activities: Functional Status: Independent Living Arrangements: Alone Type of Residence: Private residence, Single Level [address] [place] [address] Current DME: Equipment Currently Used at Home: walker, rollator Income Information: Income Source: Retired Income/Expense Information: Income meets expenses Current Resources Utilized: Food [place] Housing Circumstances-Z Codes: Housing Circumstances (select all [...] Dialysis Services: None. Living Will/Advance Directive/Power of Restaurant Area Manager /Guardian: Denied. Additional Comments: Patient is not medically ready for discharge. SW will continue to follow. Mariia Macedo STEAM HEATING INSTALLER * Care Plan - Emilia Alonso RN [...] from the original note were not included. [facility] Department of Surgery Division of Vascular [...] Agree with above assessment and evaluation from resident/BULK DELIVERY DRIVER. * Op Note - Terrell Gautam MD - 10/17/2024 8:52 AM EDT Operative Note Date: 10/17/24 Location: [facility] Name: Bev Bobby, : 1960, Diagnoses: Pre-op Diagnosis Critical limb ischemia of left lower extremity Common femoral artery pseudoaneurysm Post-op Diagnosis Critical limb ischemia of left lower extremity Common femoral artery pseudoaneurysm Procedure(s): Left common/superficial/profunda femoral thromboendarterectomy with bovine patch repair Left external iliac artery/STRAINER TENDER stent Attending Surgeon(s): * Terrell Gautam - Primary Revenue Integrity Analyst(s): * Luna Beckett MD - Resident - [...] Necessity Reasons Recent surgery contiguous with urinary tract/ORTHOTIC ASSISTANT/colorectal 10/17/24 190 Output (mL) 50 mL 10/18/24 08 Implants Type Name Action Serial No. VASCUGUARD 8 X 8 - [id number] Implanted STENT ENDOPROSTHESIS VIABAHN 9FR [id number] - [id number] Implanted [id number] Specimen: Specimens ID Source Frozen? 1 Other [...] and distal control. We then proceeded with yafty-afr-cdze exposure of the popliteal artery. A medial [...] balloon dilated thestent with a 9 mm Eastman. We closed the arteriotomy with a single [...] 10/17/2024 8:52 AM EDT Date: 10/17/24 Location: [facility] Name: Bev Perez Kanu, : 1960, Diagnoses: Pre-op Diagnosis Critical limb ischemia of left lower extremity Common femoral artery pseudoaneurysm Post-op Diagnosis Critical limb ischemia of left lower extremity Common femoral artery pseudoaneurysm Procedure(s): Left common/superficial/profunda femoral thromboendarterectomy with bovine patch repair Left external iliac artery/STRAINER TENDER stent Attending Surgeon(s): * Terrell Gautam - Primary Revenue Integrity Analyst(s): * Luna Beckett MD - Resident - Assisting * Dandy Baltazar MD - Fellow Anesthesia: General ASA: III Blood Administration: Blood Product Administration History None Estimated Blood Loss: 300 mL Drains: Urethral Catheter Temperature probe 16 Fr. (Active) Implants Type Name Action Serial No. VASCUGUARD 8 X 8 - [id number] Implanted STENT ENDOPROSTHESIS VIABAHN 9FR [id number] - [id number] Implanted [id number] Specimen: Specimens ID Source Frozen? 1 Other [...] issues. 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 He previouslyunderwent thrombin injection. He reports pain in his calves. He presents today for scheduled left lower extremity femoral to siqdi-ytr-ihyc popliteal bypass. Planned likely use PTFE. He [...] 16. Results Review {Vanishing Link Review Results :[id number] I have reviewed the latest lab and imaging results. Assessment & Plan Critical limb ischemia of left lower extremity Proceed with scheduled surgery left lower extremity femoral to grrmg-mmq-nlxz popliteal artery bypass graft. Extensive discussion had [...] 10 mL 10 mL Intravenous q12h Jerry Hlocomb MD And sodium chloride 0.9 % flush [...] Description 11/26/2024 2:00 PM EDT Hospital Encounter [facility] [address] [place] [address] 11/26/2024 2:30 PM EDT Hospital Encounter [facility] [address] [place] [address] 11/26/2024 3:20 PM EDT Office Visit [facility] [address] [place] [address] Elisabet Schuster, GLENDA [address] [facility] [address] [place] [address] 11/29/2024 2:30 PM EDT Office Visit [facility] [address] [place] [phone] Oscar Appiah MD [address] [facility] [address] [place] [address] Pending Results Name Type Priority Associated Diagnoses [...] PREPARE RBC STAT 10/17/2024 8:06 AM EDT MI VEIN BYPASS GRAFT,FEM-POP 10/17/2024 7:38 AM EDT [...] Comment 10/19/2024 11:42 AM EDT HEALTHCARE LAB Social Scientist ID KamranJob 10/20/19 11:42 AM EDT HEALTHCARE LAB Device ID [id number] 10/19/2024 11:42 AM EDT [facility] Specimen Type POC Capillary 10/19/2024 11:42 AM EDT [facility] Blood Capillary blood specimen / Unknown 10/19/2024 11:40 AM EDT 10/19/2024 11:42 AM EDT Terrell Gautam MD LAB POINT OF CARE TE ST DOCKED DEVICE UNSOLICITED RESULTS Final Result Performing Organization Address City/State/[facility] Co de Phone Number HEALTHCARE LAB [address] [place] [address] * (ABNORMAL) Protime-INR (10/19/2024 8:25 AM EDT) Prothrombin Time 17.5(H) 12.0 - 14.3 sec LAB COAGULATION METHOD 10/19/2024 9:25 AM EDT [facility] INR 1.4(H) 0.9 - 1.1 LAB COAGULATION METHOD 10/19/2024 9:25 AM EDT [facility] Blood Venous blood specimen / Unknown Venipuncture / Unknown 10/19/2024 8:25 AM EDT 10/19/2024 8:43 AM EDT Narrative [facility] - 10/19/2024 9:25 AM [...] of recurrent [place] INR 2.5 to 3.5 Nirmal Cueto MD LAB BLOOD ORDERAB[place] [address] * (ABNORMAL) Phosphorus (10/19/2024 8:25 AM EDT) Phosphorus, Plasma 2.2(L) 2.5 - 4.5 mg/dL 10/19/2024 9:12 AM EDT [facility] Blood Venous blood specimen / Unknown Venipuncture / Unknown 10/19/2024 8:25 AM EDT 10/19/2024 8:43 AM EDT Nirmal Cueto MD LAB BLOOD ORDERABLES Final Result Performing Organization Address City/[facility]/ZIP Co de Phone Number [facility] [address] [place] [address] * Magnesium (10/19/2024 8:25 AM EDT) Magnesium, Plasma 2.1 1.9 - 2.4 mg/dL 10/19/2024 9:12 AM EDT [facility] Blood Venous blood specimen / Unknown Venipuncture / Unknown 10/19/2024 8:25 AM EDT 10/19/2024 8:43 AM EDT Nirmal Cueto MD LAB BLOOD ORDERABLES Final Result Performing Organization Address City/[facility]/ZIP Co de Phone Number [facility] [address] [place] [address] * (ABNORMAL) Basic metabolic panel (10/19/2024 8:25 AM EDT) Glucose, Plasma 191(H) 74 - 99 mg/dL 10/19/2024 9:12 AM EDT [facility] BUN, Plasma 18 8 - 23 mg/dL 10/19/2024 9:12 AM EDT [facility] Creatinine, Plasma 0.76 0.70 - 1.20 mg/dL 10/19/2024 9:12 AM EDT [facility] BUN/Creatinine Ratio 24 10/19/2024 9:12 AM EDT [facility] Sodium, Plasma 135(L) 136 - 145 mmol/L 10/19/2024 9:12 AM EDT [facility] Potassium, Plasma 4.1 3.6 - 4.9 mmol/L 10/19/2024 9:12 AM EDT [facility] Chloride, Plasma 104 97 - 107 mmol/L 10/19/2024 9:12 AM EDT [facility] CO2, Plasma 22 22 - 29 mmol/L 10/19/2024 9:12 AM EDT [facility] Anion Gap 9 6 - 16 mmol/L 10/19/2024 9:12 AM EDT [facility] Total Calcium, Plasma 8.4(L) 8.9 - 10.2 mg/dL 10/19/2024 9:12 AM EDT [facility] eGFRcr 99.7 mL/min/1.7 3m*2 10/19/2024 9:12 AM EDT [facility] Comment:Reported eGFRcr in m L/min/1.73m2 is based the CKD-EPI 2020 equation that does not use a race coefficient. Blood Venous blood specimen / Unknown Venipuncture / Unknown 10/19/2024 8:25 AM EDT 10/19/2024 8:43 AM EDT us Nirmal Cueto MD LAB BLOOD ORDERABLES Final Result [facility] [address] [place] [address] * (ABNORMAL) CBC W/O Differential (10/19/2024 8:25 AM EDT) WBC Count 14.10(H) 3.70 - 10.30 10*3/uL LAB HEMATOLOGY METHOD 10/19/2024 8:52 AM EDT [facility] RBC Count 2.61(L) 4.60 - 6.10 10*6/uL LAB HEMATOLOGY METHOD 10/19/2024 8:52 AM EDT [facility] HGB 8.0(L) 13.7 - 17.5 g/dL LAB HEMATOLOGY METHOD 10/19/2024 8:52 AM EDT [facility] HCT 24.3(L) 40.0 - 51.0 % LAB HEMATOLOGY METHOD 10/19/2024 8:52 AM EDT [facility] Platelet Count 318 155 - 369 10*3/uL LAB HEMATOLOGY METHOD 10/19/2024 8:52 AM EDT [facility] MCV 93 79 - 98 fL LAB HEMATOLOGY METHOD 10/19/2024 8:52 AM EDT [facility] MCH 30.7 26.0 - 32.0 pg LAB HEMATOLOGY METHOD 10/19/2024 8:52 AM EDT [facility] MCHC 32.9 30.7 - 35.5 g/dL LAB HEMATOLOGY METHOD 10/19/2024 8:52 AM EDT [facility] RDW 13.4 11.5 - 14.5 % LAB HEMATOLOGY METHOD 10/19/2024 8:52 AM EDT [facility] MPV 9.6 8.8 - 12.5 fL LAB HEMATOLOGY METHOD 10/19/2024 8:52 AM EDT [facility] nRBC 0.0 <=0.0 per 100 WBCs LAB HEMATOLOGY METHOD 10/19/2024 8:52 AM EDT [facility] Blood Venous blood specimen / Unknown Venipuncture / Unknown 10/19/2024 8:25 AM EDT 10/19/2024 8:44 AM EDT us Nirmal Cueto MD LAB BLOOD ORDERABLES Final Result [facility] [address] [place] [address] * (ABNORMAL) POCT glucose meter (10/19/2024 7:35 AM EDT) [facility] POCT Glucose 187(H) 74 - 99 mg/dL [...] Comment 10/19/2024 7:37 AM EDT HEALTHCARE LAB Social Scientist ID Job Andrew 10/20/19 7:37 AM EDT HEALTHCARE LAB Device ID [id number] 10/19/2024 7:37 AM EDT [facility] LAB Specimen Type POC Capillary 10/19/2024 7:37 AM EDT [facility] Blood Capillary blood specimen / Unknown 10/19/2024 7:35 AM EDT 10/19/2024 7:37 AM EDT us Terrell Gautam MD LAB POINT OF CARE TE ST DOCKED DEVICE UNSOLICITED RESULTS Final Result Performing Organization Address City/State/[facility] Co de Phone Number [facility] [address] [place] [address] * (ABNORMAL) POCT glucose meter (10/18/2024 7:22 PM EDT) [facility] POCT Glucose 178(H) 74 - 99 mg/dL [...] 10/18/2024 7:24 PM EDT [facility] Social Scientist ID Jovan Mahesh 10/18/2024 7:24 PM EDT [facility] Device ID [id number] 10/18/2024 7:24 PM EDT [facility] LAB Specimen Type POC Capillary 10/18/2024 7:24 PM EDT [facility] Blood Capillary blood specimen / Unknown 10/18/2024 7:22 PM EDT 10/18/2024 7:24 PM EDT us Terrell Gautam MD LAB POINT OF CARE TE ST DOCKED DEVICE UNSOLICITED RESULTS Final Result Performing Organization Address City/[facility]/ZIP Co de Phone Number [facility] [address] [place] [address] * (ABNORMAL) POCT glucose meter (10/18/2024 6:07 [...] Comment 10/18/2024 6:09 PM EDT HEALTHCARE LAB Social Scientist ID David Parks 10/18/2024 6:09 PM EDT HEALTHCARE LAB Device ID [id number] 10/18/2024 6:09 PM EDT [facility]ARE LAB Specimen Type POC Capillary 10/18/2024 6:09 PM EDT [facility] Blood Capillary blood specimen / Unknown 10/18/2024 6:07 PM EDT 10/18/2024 6:09 PM EDT us Terrell Gautam MD LAB POINT OF CARE TE ST DOCKED DEVICE UNSOLICITED RESULTS Final Result [facility] [address] [place] [address] * (ABNORMAL) POCT glucose meter (10/18/2024 11:56 [...] Comment 10/21/2024 7:42 AM EDT HEALTHCARE LAB Social Scientist ID Venessa Marcano 10/21/2024 7:42 AM EDT [facility] Device ID [id number] 10/21/2024 7:42 AM EDT [facility] Specimen Type POC Capillary 10/21/2024 7:42 AM EDT [facility] Blood Capillary blood specimen / Unknown 10/18/2024 11:56 AM EDT 10/21/2024 7:42 AM EDT us Terrell Gautam MD LAB POINT OF CARE TE ST DOCKED DEVICE UNSOLICITED RESULTS Final Result Performing Organization Address City/State/[facility] Co de Phone Number [facility]ARE LAB [address] [place] [address] * (ABNORMAL) POCT glucose meter (10/18/2024 9:24 [...] 10/21/2024 7:42 AM EDT [facility] Social Scientist ID Emilia Alonso 7:42 AM EDT [facility] Device ID [id number] 10/21/2024 7:42 AM EDT [facility]ALTH[facility]ARE LAB Specimen Type POC Venous 10/21/2024 7:42 AM EDT [facility] Blood Venous blood specimen / Unknown 10/18/2024 9:24 AM EDT 10/21/2024 7:42 AM EDT us Terrell Gautam MD LAB POINT OF CARE TE ST DOCKED DEVICE UNSOLICITED RESULTS Final Result [facility] [address] [place] [address] * (ABNORMAL) POCT glucose meter (10/18/2024 7:36 AM EDT) Pathologist [facility] POCT Glucose 215(H) 74 - 99 mg/dL [...] for testing. Comment 10/18/2024 7:38 AM EDT [facility] Social Scientist ID Kizzy Godfrey 025 7:38 AM EDT HEALTHCARE LAB Device ID [id number] 10/18/2024 7:38 AM EDT [facility] Specimen Type POC Capillary 10/18/2024 7:38 AM EDT [facility] Blood Capillary blood specimen / Unknown 10/18/2024 7:36 AM EDT 10/18/2024 7:38 AM EDT us Terrell Gautam MD LAB POINT OF CARE TE ST DOCKED DEVICE UNSOLICITED RESULTS Final Result [facility] [address] [place] [address] * (ABNORMAL) CBC (10/18/2024 2:09 AM EDT) Pathologist [facility] WBC Count 16.71(H) 3.70 - 10.30 10*3/uL LAB HEMATOLOGY METHOD 10/18/2024 2:33 AM EDT [facility] RBC Count 2.78(L) 4.60 - 6.10 10*6/uL LAB HEMATOLOGY METHOD 10/18/2024 2:33 AM EDT [facility] HGB 8.5(L) 13.7 - 17.5 g/dL LAB HEMATOLOGY METHOD 10/18/2024 2:33 AM EDT [facility] HCT 25.7(L) 40.0 - 51.0 % LAB HEMATOLOGY METHOD 10/18/2024 2:33 AM EDT [facility] Platelet Count 324 155 - 369 10*3/uL LAB HEMATOLOGY METHOD 10/18/2024 2:33 AM EDT [facility] MCV 92 79 - 98 fL LAB HEMATOLOGY METHOD 10/18/2024 2:33 AM EDT [facility] MCH 30.6 26.0 - 32.0 pg LAB HEMATOLOGY METHOD 10/18/2024 2:33 AM EDT [facility] MCHC 33.1 30.7 - 35.5 g/dL LAB HEMATOLOGY METHOD 10/18/2024 2:33 AM EDT [facility] RDW 13.3 11.5 - 14.5 % LAB HEMATOLOGY METHOD 10/18/2024 2:33 AM EDT [facility] MPV 9.4 8.8 - 12.5 fL LAB HEMATOLOGY METHOD 10/18/2024 2:33 AM EDT [facility] nRBC 0.0 <=0.0 per 100 WBCs LAB HEMATOLOGY METHOD 10/18/2024 2:33 AM EDT [facility] Blood Venous blood specimen / Unknown Venipuncture / Unknown 10/18/2024 2:09 AM EDT 10/18/2024 2:25 AM EDT us Nirmal Cueto MD LAB BLOOD ORDERABLES Final Result [facility] [address] [place] [address] * (ABNORMAL) Basic metabolic panel (10/18/2024 2:09 AM EDT) Glucose, Plasma 206(H) 74 - 99 mg/dL 10/18/2024 2:53 AM EDT [facility] BUN, Plasma 24(H) 8 - 23 mg/dL 10/18/2024 2:53 AM EDT [facility] Creatinine, Plasma 1.17 0.70 - 1.20 mg/dL 10/18/2024 2:53 AM EDT [facility] BUN/Creatinine Ratio 21 10/18/2024 2:53 AM EDT [facility] Sodium, Plasma 136 136 - 145 mmol/L 10/18/2024 2:53 AM EDT [facility] Potassium, Plasma 4.8 3.6 - 4.9 mmol/L 10/18/2024 2:53 AM EDT [facility] Chloride, Plasma 104 97 - 107 mmol/L 10/18/2024 2:53 AM EDT [facility] CO2, Plasma 22 22 - 29 mmol/L 10/18/2024 2:53 AM EDT [facility] Anion Gap 10 6 - 16 mmol/L 10/18/2024 2:53 AM EDT [facility] Total Calcium, Plasma 8.5(L) 8.9 - 10.2 mg/dL 10/18/2024 2:53 AM EDT [facility] eGFRcr 69.2 mL/min/1.7 3m*2 10/18/2024 2:53 AM EDT [facility] Comment:Reported eGFRcr in m L/min/1.73m2 is based the CKD-EPI 2020 equation that does not use a race coefficient. Blood Venous blood specimen / Unknown Venipuncture / Unknown 10/18/2024 2:09 AM EDT 10/18/2024 2:25 AM EDT Nirmal Cueto MD LAB BLOOD ORDERABLES Final Result [facility] [address] [place] [address] * (ABNORMAL) Magnesium (10/18/2024 2:09 AM EDT) Magnesium, Plasma 1.8(L) 1.9 - 2.4 mg/dL 10/18/2024 2:53 AM EDT [facility] Blood Venous blood specimen / Unknown Venipuncture / Unknown 10/18/2024 2:09 AM EDT 10/18/2024 2:25 AM EDT us iNrmal Cueto MD LAB BLOOD ORDERABLES Final Result [facility] [address] [place] [address] * Phosphorus (10/18/2024 2:09 AM EDT) Phosphorus, Plasma 3.7 2.5 - 4.5 mg/dL 10/18/2024 2:53 AM EDT [facility] Blood Venous blood specimen / Unknown Venipuncture / Unknown 10/18/2024 2:09 AM EDT 10/18/2024 2:25 AM EDT Nirmal Cueto MD LAB BLOOD ORDERABLES Final Result Performing Organization Address [facility] Co de Phone Number [facility] [address] [place] [address] * (ABNORMAL) Protime-INR (10/18/2024 2:09 AM EDT) Prothrombin Time 14.5(H) 12.0 - 14.3 sec LAB COAGULATION METHOD 10/18/2024 2:53 AM EDT [facility] INR 1.1 0.9 - 1.1 LAB COAGULATION METHOD 10/18/2024 2:53 AM EDT [facility] Blood Venous blood specimen / Unknown Venipuncture / Unknown 10/18/2024 2:09 AM EDT 10/18/2024 2:25 AM EDT Narrative [facility] - 10/18/2024 2:53 AM [...] recurrent [place] INR 2.5 to 3.5 us Nirmal Cueto MD LAB BLOOD ORDERABLES Final Result Performing Organization Address City/[facility]/ZIP Co de Phone Number [facility] [address] [place] [address] * (ABNORMAL) POCT glucose meter (10/18/2024 2:08 AM EDT) [facility] POCT Glucose 202(H) 74 - 99 mg/dL [...] Comment 10/18/2024 2:10 AM EDT [facility] Social Scientist ID Jourdan Grimes II 10/18/2024 2:10 AM EDT [facility] Device ID [id number] 10/18/2024 2:10 AM EDT [facility] Specimen Type POC Capillary 10/18/2024 2:10 AM EDT [facility] Blood Capillary blood specimen / Unknown 10/18/2024 2:08 AM EDT 10/18/2024 2:10 AM EDT us Terrell Gautam MD LAB POINT OF CARE TE ST DOCKED DEVICE UNSOLICITED RESULTS Final Result Performing Organization Address City/State/[facility] Co de Phone Number [facility] [address] [place] [address] * (ABNORMAL) POCT glucose meter (10/17/2024 10:07 PM EDT) [facility] POCT Glucose 300(H) 74 - 99 mg/dL [...] Comment 10/17/2024 10:10 PM EDT [facility] Social Scientist ID Jourdan Grimes II 10/17/2024 10:10 PM EDT [facility] Device ID [id number] 10/17/2024 10:10 PM EDT [facility] Specimen Type POC Capillary 10/17/2024 10:10 PM EDT [facility] Blood Capillary blood specimen / Unknown 10/17/2024 10:07 PM EDT 10/17/2024 10:10 PM EDT Terrell Gautam MD LAB POINT OF CARE TE ST DOCKED DEVICE UNSOLICITED RESULTS Final Result Performing Organization Address City/[facility] Co de Phone Number [facility] [address] [place] [address] * (ABNORMAL) POCT glucose meter (10/17/2024 8:07 [...] Comment 10/17/2024 8:10 PM EDT [facility] Social Scientist ID Jourdan Grimes II 10/17/2024 8:10 PM EDT [facility] Device ID [id number] 10/17/2024 8:10 PM EDT [facility] Specimen Type POC Capillary 10/17/2024 8:10 PM EDT [facility] Blood Capillary blood specimen / Unknown 10/17/2024 8:07 PM EDT 10/17/2024 8:10 PM EDT us Terrell Gautam MD LAB POINT OF CARE TE ST DOCKED DEVICE UNSOLICITED RESULTS Final Result Performing Organization Address City/[facility]/ZIP Co de Phone Number [facility] [address] [place] [address] * (ABNORMAL) POCT glucose meter (10/17/2024 4:01 [...] Comment 10/17/2024 4:03 PM EDT [facility] Social Scientist ID Keisha Waller 10/17/2024 4:03 PM EDT [facility] Device ID [id number] 10/17/2024 4:03 PM EDT [facility] Specimen Type POC Capillary 10/17/2024 4:03 PM EDT [facility] Blood Capillary blood specimen / Unknown 10/17/2024 4:01 PM EDT 10/17/2024 4:03 PM EDT us Terrell Gautam MD LAB POINT OF CARE TE ST DOCKED DEVICE UNSOLICITED RESULTS Final Result Performing Organization Address City/State/[facility] Co de Phone Number [facility] [address] [place] [address] * (ABNORMAL) POCT glucose meter (10/17/2024 1:25 PM EDT) [facility] POCT Glucose 225(H) 74 - 99 mg/dL [...] Comment 10/17/2024 1:27 PM EDT [facility] Social Scientist ID Kizzy Godfrey 025 1:27 PM EDT [facility] Device ID [id number] 10/17/2024 1:27 PM EDT [facility] Specimen Type POC Capillary 10/17/2024 1:27 PM EDT [facility] Blood Capillary blood specimen / Unknown 10/17/2024 1:25 PM EDT 10/17/2024 1:27 PM EDT us Terrell Gautam MD LAB POINT OF CARE TE ST DOCKED DEVICE UNSOLICITED RESULTS Final Result Performing Organization Address City/[facility] Co de Phone Number [facility] [address] [place] [address] * [place] Less than 1 Hour Intraoperative (10/17/2024 1:18 PM EDT) Narrative IMAGING - 10/17/2024 2:05 PM EDT Images were obtained for surgical purposes. See Terrell Gautam's surgical note in the patient's chart for the findings. Terrell Gautam MD IMG FLUOROSCOPY PROCEDURES Fi nal Result Performing Organization Address [facility] Co de Phone Number IMAGING * POCT ACT (10/17/2024 12:23 PM EDT) ACT+ (HIGH RANGE) 211 68 - 600 Seconds 10/29/2024 7:28 AM EDT [facility] Social Scientist ID Donna Mcmillan 10/29/2024 7:28 AM EDT [facility] ACT Device ID [id number] 10/29/2024 7:28 AM EDT [facility] Comment 10/29/2024 7:28 AM EDT [facility] Comment: ACT performed by [...] UNSOLICITED RESULTS Final Result Performing Organization Address [facility] Co de Phone Number [facility] [address] [place], [place] [id number] [place] [address] LAB [address] [place] [address] * (ABNORMAL) Blood gas, arterial (10/17/2024 11:48 AM EDT) pH, Arterial 7.34 7.31 - 7.42 LAB HEMATOLOGY METHOD 10/17/2024 11:54 AM EDT [facility] pCO2, Arterial 41 32 - 45 mmHg LAB HEMATOLOGY METHOD 10/17/2024 11:54 AM EDT [facility] pO2, Arterial 202 >80 mmHg LAB HEMATOLOGY METHOD 10/17/2024 11:54 AM EDT [facility] SO2, Measured, Arterial 100(H) 94 - 98 % LAB HEMATOLOGY METHOD 10/17/2024 11:54 AM EDT [facility] Base Excess, Arterial -3.2(L) -2.0 - 3.0 mmol/L LAB HEMATOLOGY METHOD 10/17/2024 11:54 AM EDT [facility] Bicarbonate, Calculated, Arterial 22 22 - 26 mmol/L LAB HEMATOLOGY METHOD 10/17/2024 11:54 AM EDT [facility] Hematocrit, Whole Blood 28.6(L) 40.0 - 51.0 % LAB HEMATOLOGY METHOD 10/17/2024 11:54 AM EDT [facility] Sodium, Whole Blood 137 136 - 145 mmol/L LAB HEMATOLOGY METHOD 10/17/2024 11:54 AM EDT [facility] Potassium, Whole Blood 4.5 3.6 - 4.9 mmol/L LAB HEMATOLOGY METHOD 10/17/2024 11:54 AM EDT [facility] Chloride, Whole Blood 112(H) 97 - 107 mmol/L LAB HEMATOLOGY METHOD 10/17/2024 11:54 AM EDT [facility] Glucose, Whole Blood 201(H) 74 - 99 mg/dL LAB HEMATOLOGY METHOD 10/17/2024 11:54 AM EDT [facility] Ionized Calcium, Whole Blood 4.8 4.6 - 5.1 mg/dL LAB HEMATOLOGY METHOD 10/17/2024 11:54 AM EDT [facility] Lactate, Arterial, Whole Blood 2.3(H) 0.5 - 1.6 mmol/L LAB HEMATOLOGY METHOD 10/17/2024 11:54 AM EDT [facility] Blood Arterial blood specimen / Unknown Arterial Puncture / Unknown 10/17/2024 11:48 AM EDT 10/17/2024 11:53 AM EDT us Jenna Lopez CRNA LAB BLOOD ORDERABLES Final Re sult [facility] [address] [place] [address] * POCT ACT (10/17/2024 11:41 AM EDT) ACT+ (HIGH RANGE) 175 68 - 600 Seconds 10/29/2024 7:28 AM EDT [facility] Social Scientist ID Oneyda Alicea 10/29/2024 7:28 AM EDT [facility] ACT Device ID [id number] 10/29/2024 7:28 AM EDT [facility] Comment 10/29/2024 7:28 AM EDT [facility] Comment: ACT performed by [...] ST DOCKED DEVICE UNSOLICITED RESULTS Final Result [facility] [address] LAB [address] [place] [address] * POCT ACT (10/17/2024 11:11 AM EDT) ACT+ (HIGH RANGE) 252 68 - 600 Seconds 10/29/2024 7:28 AM EDT [facility] Social Scientist ID Donna Mcmillan 10/29/2024 7:28 AM EDT [facility] ACT Device ID [id number] 10/29/2024 7:28 AM EDT [facility] Comment 10/29/2024 7:28 AM EDT [facility] Comment: ACT performed by [...] RESULTS Final Result [facility] [address] LAB [address] [place] [address] * (ABNORMAL) Blood gas, arterial (10/17/2024 10:46 AM EDT) pH, Arterial 7.35 7.31 - 7.42 LAB HEMATOLOGY METHOD 10/17/2024 10:56 AM EDT [facility] pCO2, Arterial 42 32 - 45 mmHg LAB HEMATOLOGY METHOD 10/17/2024 10:56 AM EDT [facility] pO2, Arterial 161 >80 mmHg LAB HEMATOLOGY METHOD 10/17/2024 10:56 AM EDT [facility] SO2, Measured, Arterial 100(H) 94 - 98 % LAB HEMATOLOGY METHOD 10/17/2024 10:56 AM EDT [facility] Base Excess, Arterial -2.2(L) -2.0 - 3.0 mmol/L LAB HEMATOLOGY METHOD 10/17/2024 10:56 AM EDT [facility] Bicarbonate, Calculated, Arterial 23 22 - 26 mmol/L LAB HEMATOLOGY METHOD 10/17/2024 10:56 AM EDT [facility] Hematocrit, Whole Blood 29.9(L) 40.0 - 51.0 % LAB HEMATOLOGY METHOD 10/17/2024 10:56 AM EDT [facility] Sodium, Whole Blood 138 136 - 145 mmol/L LAB HEMATOLOGY METHOD 10/17/2024 10:56 AM EDT [facility] Potassium, Whole Blood 4.0 3.6 - 4.9 mmol/L LAB HEMATOLOGY METHOD 10/17/2024 10:56 AM EDT [facility] Chloride, Whole Blood 110(H) 97 - 107 mmol/L LAB HEMATOLOGY METHOD 10/17/2024 10:56 AM EDT [facility] Glucose, Whole Blood 174(H) 74 - 99 mg/dL LAB HEMATOLOGY METHOD 10/17/2024 10:56 AM EDT [facility] Ionized Calcium, Whole Blood 5.1 4.6 - 5.1 mg/dL LAB HEMATOLOGY METHOD 10/17/2024 10:56 AM EDT [facility] Lactate, Arterial, Whole Blood 1.4 0.5 - 1.6 mmol/L LAB HEMATOLOGY METHOD 10/17/2024 10:56 AM EDT [facility] Blood Arterial blood specimen / Unknown Arterial Puncture / Unknown 10/17/2024 10:46 AM EDT 10/17/2024 10:54 AM EDT us Jenna Lopez CRNA LAB BLOOD ORDERABLES Final Re sult [facility] [address] [place] [address] * POCT ACT (10/17/2024 10:37 AM EDT) ACT+ (HIGH RANGE) 206 68 - 600 Seconds 10/29/2024 7:28 AM EDT [facility] Social Scientist ID Donna Mcmillan 10/29/2024 7:28 AM EDT [facility] ACT Device ID [id number] 10/29/2024 7:28 AM EDT [facility] Comment 10/29/2024 7:28 AM EDT [facility] Comment: ACT performed by [...] ST DOCKED DEVICE UNSOLICITED RESULTS Final Result [facility] [address] LAB [address] [place] [address] * Surgical Pathology Exam (10/17/2024 10:27 AM EDT) Case Report Surgical Pathology Case: [id number] Authorizing Provider: Terrell Gautam MD Collected: 10/17/2024 1027 Ordering Location: [facility] Received: 10/17/2024 1325 Pathologist: Haydee Osborne MD Specimen: Other (specify site), left common femoral plaque 10/21/2024 10:16 AM EDT [facility] Final Diagnosis A. LEFT COMMON FEMORAL PLAQUE, EXCISION: - CALCIFIED PLAQUE 10/21/2024 10:16 AM EDT [facility] at 1016 EDT Clinical Information Critical limb ischemia of left lower extremity [I70.222] 10/21/2024 10:16 AM EDT [facility] Gross Description A. LEFT COMMON FEMORAL PLAQUE Received in formalin labeled l eft common femoral plaque , is one aggregate of red-gabriel hard portions of plaque measuring 3.7 x 2.5 x 0.9 cm. The specimen is serially sectioned and aircraft sales representative sections are submitted in cassette A1. Cold Time: <1m Kenia Aceves 10/21/2024 10:16 AM EDT [facility] Note: A resident was involved in the service. I attest I examined the relevant preparations for the specimens and confirmed the diagnosis or interpretation. 10/21/2024 10:16 AM EDT [facility] Tissue Topography unknown / Unknown 10/17/2024 10:27 AM EDT 10/17/2024 1:25 PM EDT Comment:Pre-op diagnosis: Critical limb ischemia of left lower extremity [I70.222] us Terrell Gautam MD LAB PATHOLOGY ORDERABLES Gwen grimaldo Result [facility] [address] [place] [address] * POCT ACT (10/17/2024 10:03 AM EDT) ACT+ (HIGH RANGE) 244 68 - 600 Seconds 10/29/2024 7:28 AM EDT [facility] Social Scientist ID Donna Mcmillan 10/29/2024 7:28 AM EDT [facility] ACT Device ID [id number] 10/29/2024 7:28 AM EDT [facility] Comment 10/29/2024 7:28 AM EDT [facility] Comment: ACT performed by [...] ST DOCKED DEVICE UNSOLICITED RESULTS Final Result [facility] [address] LAB [address] [place] [address] * (ABNORMAL) Blood gas, arterial (10/17/2024 9:45 AM EDT) pH, Arterial 7.37 7.31 - 7.42 LAB HEMATOLOGY METHOD 10/17/2024 9:55 AM EDT [facility] pCO2, Arterial 43 32 - 45 mmHg LAB HEMATOLOGY METHOD 10/17/2024 9:55 AM EDT [facility] pO2, Arterial 177 >80 mmHg LAB HEMATOLOGY METHOD 10/17/2024 9:55 AM EDT [facility] SO2, Measured, Arterial 100(H) 94 - 98 % LAB HEMATOLOGY METHOD 10/17/2024 9:55 AM EDT [facility] Base Excess, Arterial -0.5 -2.0 - 3.0 mmol/L LAB HEMATOLOGY METHOD 10/17/2024 9:55 AM EDT [facility] Bicarbonate, Calculated, Arterial 25 22 - 26 mmol/L LAB HEMATOLOGY METHOD 10/17/2024 9:55 AM EDT [facility] Hematocrit, Whole Blood 30.0(L) 40.0 - 51.0 % LAB HEMATOLOGY METHOD 10/17/2024 9:55 AM EDT [facility] Sodium, Whole Blood 137 136 - 145 mmol/L LAB HEMATOLOGY METHOD 10/17/2024 9:55 AM EDT [facility] Potassium, Whole Blood 4.3 3.6 - 4.9 mmol/L LAB HEMATOLOGY METHOD 10/17/2024 9:55 AM EDT [facility] Chloride, Whole Blood 108(H) 97 - 107 mmol/L LAB HEMATOLOGY METHOD 10/17/2024 9:55 AM EDT [facility] Glucose, Whole Blood 191(H) 74 - 99 mg/dL LAB HEMATOLOGY METHOD 10/17/2024 9:55 AM EDT [facility] Ionized Calcium, Whole Blood 5.0 4.6 - 5.1 mg/dL LAB HEMATOLOGY METHOD 10/17/2024 9:55 AM EDT [facility] Lactate, Arterial, Whole Blood 1.3 0.5 - 1.6 mmol/L LAB HEMATOLOGY METHOD 10/17/2024 9:55 AM EDT [facility] Blood Arterial blood specimen / Unknown Arterial Line / Unknown 10/17/2024 9:45 AM EDT 10/17/2024 9:52 AM EDT us Jenna Lopez [employer] DEL[employer] LAB BLOOD ORDERABLES Final Re sult [facility] [address] [place] [address] * (ABNORMAL) Blood gas, arterial (10/17/2024 8:47 AM EDT) pH, Arterial 7.37 7.31 - 7.42 LAB HEMATOLOGY METHOD 10/17/2024 8:59 AM EDT [facility] pCO2, Arterial 43 32 - 45 mmHg LAB HEMATOLOGY METHOD 10/17/2024 8:59 AM EDT [facility] pO2, Arterial 205 >80 mmHg LAB HEMATOLOGY METHOD 10/17/2024 8:59 AM EDT [facility] SO2, Measured, Arterial 100(H) 94 - 98 % LAB HEMATOLOGY METHOD 10/17/2024 8:59 AM EDT [facility] Base Excess, Arterial -0.3 -2.0 - 3.0 mmol/L LAB HEMATOLOGY METHOD 10/17/2024 8:59 AM EDT [facility] Bicarbonate, Calculated, Arterial 25 22 - 26 mmol/L LAB HEMATOLOGY METHOD 10/17/2024 8:59 AM EDT [facility] Hematocrit, Whole Blood 31.3(L) 40.0 - 51.0 % LAB HEMATOLOGY METHOD 10/17/2024 8:59 AM EDT [facility] Sodium, Whole Blood 138 136 - 145 mmol/L LAB HEMATOLOGY METHOD 10/17/2024 8:59 AM EDT [facility] Potassium, Whole Blood 4.0 3.6 - 4.9 mmol/L LAB HEMATOLOGY METHOD 10/17/2024 8:59 AM EDT [facility] Chloride, Whole Blood 108(H) 97 - 107 mmol/L LAB HEMATOLOGY METHOD 10/17/2024 8:59 AM EDT [facility] Glucose, Whole Blood 162(H) 74 - 99 mg/dL LAB HEMATOLOGY METHOD 10/17/2024 8:59 AM EDT [facility] Ionized Calcium, Whole Blood 5.2(H) 4.6 - 5.1 mg/dL LAB HEMATOLOGY METHOD 10/17/2024 8:59 AM EDT [facility] Lactate, Arterial, Whole Blood 1.7(H) 0.5 - 1.6 mmol/L LAB HEMATOLOGY METHOD 10/17/2024 8:59 AM EDT [facility] Blood Arterial blood specimen / Unknown Arterial Puncture / Unknown 10/17/2024 8:47 AM EDT 10/17/2024 8:58 AM EDT us Jenna Lopez [facility] LAB BLOOD ORDERABLES Final Re sult [facility] [address] [place] [address] * POCT ACT (10/17/2024 8:46 AM EDT) ACT+ (HIGH RANGE) 101 68 - 600 Seconds 10/29/2024 7:28 AM EDT [facility]ALTH[facility] Social Scientist ID HipolitoAdaDonna Maya 10/29/2024 7:28 AM EDT [facility] ACT Device ID [id number] 10/29/2024 7:28 AM EDT [facility] Comment 10/29/2024 7:28 AM EDT [facility] Comment: ACT performed by [...] UNSOLICITED RESULTS Final Result Performing Organization Address [facility] de Phone Number [facility] [address] LAB [address] [place] [address] * Type and Screen (10/17/2024 7:19 AM EDT) Pathologist [facility] ABO/Rh A Negative 10/17/2024 7:04 AM EDT BLOOD BANK Antibody Screen Negative 10/17/2024 7:04 AM EDT BLOOD BANK Specimen Expiration 10/20/2024 23:59 10/17/2024 7:04 AM EDT BLOOD BANK Blood Venous blood specimen / Unknown Venipuncture / Unknown 10/17/2024 7:19 AM EDT 10/17/2024 7:28 AM EDT us Maria Fernanda Mccallum MD LAB BLOOD BANK TEST ORDERAB LES Final Result Performing Organization Address [facility] de Phone Number BLOOD BANK [address] [place] [address] * (ABNORMAL) POCT glucose meter (10/17/2024 6:44 AM EDT) [facility] POCT Glucose 178(H) 74 - 99 mg/dL [...] 10/17/2024 6:49 AM EDT [facility] Social Scientist ID Hunter Burroughs 10/18/19 6:49 AM EDT [facility] Device ID [id number] 10/17/2024 6:49 AM EDT [facility] Specimen Type POC Capillary 10/17/2024 6:49 AM EDT [facility]ALTH[facility] Blood Capillary blood specimen / Unknown 10/17/2024 6:44 AM EDT 10/17/2024 6:49 AM EDT Terrell Gautma MD LAB POINT OF CARE TE ST DOCKED DEVICE UNSOLICITED RESULTS Final Result [facility] [address] [place] [address] documented in this encounter Visit Diagnoses Diagnosis [...] documented as of this encounter Care Teams Postpartum Nurse Relationship Specialty Start Date End Date Asad Victor MD [address] [place] [address] PCP - General 10/07/22 documented as of this encounter
--- OUTSIDE RECORDS SUMMARY | 2024-10-17 07:51 | XMS_ITS | Encounter Summary ---
Author Organization [facility] Address [address] [id number] Care Team Providers Care Social Contact Worker Name Role Phone Asad Victor MD Primary Care Provider + [phone] Reason for Visit * Auth/Cert (Routine) Specialty Diagnoses / Procedures Referred By Contac t Referred To Contact Diagnoses Critical limb ischemia of left lower extremity Critical limb ischemia of left lower extremity [I70.222] Procedures WI VEIN BYPASS GRAFT,FEM-POP CREATION, BYPASS, ARTERIAL, FEMORAL TO POPLITEAL Terrell Gautam MD [address] [facility] [address] [place] [address] Phone: tel: fax: [facility] RO[facility] [address] [place] [address] Phone: tel: Referral ID Status Reason Start Date Expiration Date Visits Re quested Visits Authorized [id number] 1 1 Encounter Details Date Type Department Care Team (Late st Contact Info) Description 10/17/2024 7:51 AM EDT Anesthesia Event [facility] [address] [place] [id number] Maria Fernanda Mccallum MD [address] [place] [address] Anesthesia Record Procedure Summary Procedure [...] Hand; Site Prep: Chlorhexidine ; Local Anesth: [place]; Technique: Anatomical landmarks; Inserted by: CHRISTIAN Acuna; [...] any time in the past 12 m [facility], were you homeless or living in a [...] drink first t dino in the morning (EYE-INDEPENDENT BEAUTY CONSULTANT) to steady your nerves or to [...] * Anesthesia Postprocedure Evaluation - Jenna Lopez, ART EDUCATION PROFESSOR - 10/17/2024 1:29 PM EDT Patient: Mono [...] by Swetha Villareal MD Staffing Performed: ISH ART EDUCATION PROFESSOR: Jenna Lopez CRNA * Anesthesia Procedure Notes - Jenna Lopez CRNA - 10/17/2024 9:00 AM EDT Associated Order(s): Airway Airway Date/Time: 10/17/2024 8:03 AM Reason: elective Airway not difficult General Information and Staff Patient location during procedure: OR ART EDUCATION PROFESSOR: Jenna Lopez CRNA Performed: ART EDUCATION PROFESSOR Patient Condition Indications for airway management: anesthesia [...] CEA 2016 + 3rd degree AV block CONSULTING DATABASE ADMINISTRATOR-P placed 08/2023 for Wenkeback with 11 sec pause + HLD + HTN - controlled + PAD 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 CORONARY ANGIOPLASTY Left Coronary Angiography With Concomitant Left Heart Catheterization from [employer] ??? CORONARY ARTERY BYPASS GRAFT N/A 2018 [...] Description 11/26/2024 2:00 PM EDT Hospital Encounter [facility] [address] [place] [address] 11/26/2024 2:30 PM EDT Hospital Encounter [facility] [address] [place] [address] 11/26/2024 3:20 PM EDT Office Visit [facility] [address] [place] [address] Elisabet Schuster, GLENDA [address] [facility] [address] [place] [address] 11/29/2024 2:30 PM EDT Office Visit [facility] [address] [place] [address] Oscar Appiah MD [facility] [address] [place] [address] documented as of this encounter Goals Goal [...] ANESTHESIA PLACEHOLDER Routine 10/17/2024 8:03 AM EDT WI AN ELECTIVE ENDOTRACHEAL AIRWAY Routine 10/17/2024 8:03 [...] Performed by Swetha Villareal MD Staffing Performed: ART EDUCATION PROFESSOR ART EDUCATION PROFESSOR: Jenna Lopez CRNA Maria Fernanda Mccallum MD ANESTHESIA ORDERABLES Edite d Result - Final * WI AN ELECTIVE ENDOTRACHEAL AIRWAY, PB ANESTHESIA PLACEHOLDER (10/17/2024 8:03 AM EDT) Narrative Jenna Lopez CRNA - 10/17/2024 8:03 AM EDT Jenna Lopez CRNA 10/17/2024 9:00 AM Airway Date/Time: 10/17/2024 8:03 AM Reason: elective Airway not difficult General Information and Staff Patient location during procedure: OR ART EDUCATION PROFESSOR: Jenna Lopez CRNA Performed: ISH Patient Condition [...] Mccallum MD ANESTHESIA ORDERABLES Final Result * [facility] AN POCUS CARDIAC PROCDOC (10/17/2024 7:18 [...] Trace AR. The images were Saved in [employer] - E. The study was technically adequate. [...] documented as of this encounter Care Teams Social Contact Worker Relationship Specialty Start Date End Date Asad Victor MD [address] [place] [address] PCP - General 10/07/22 documented as of this encounter
--- OUTSIDE RECORDS SUMMARY | 2024-10-17 08:00 | XMS_ITS | Encounter Summary ---
Author Organization [facility] Address [address] [place] [address] Care Team Providers Care Cement Tester Assistant Name Role Phone Asad Victor MD Primary Care Provider + [phone] Reason for Visit * Auth/Cert (Routine) Specialty Diagnoses / Procedures Referred By Contac t Referred To Contact Diagnoses Critical limb ischemia of left lower extremity Critical limb ischemia of left lower extremity [I70.222] Procedures MD VEIN BYPASS GRAFT,FEM-POP CREATION, BYPASS, ARTERIAL, FEMORAL TO POPLITEAL Terrell Gautam MD [address] [address] Phone: tel: fax: [facility] [address] [place] [address] Phone: tel: Referral ID Status Reason Start Date Expiration Date Visits Re quested Visits Authorized [id number] 1 1 Encounter Details Date Type Department Care Team (Late st Contact Info) Description 10/17/2024 8:00 AM EDT - 10/17/2024 2:50 PM EDT Surgery [facility] [address] [place] [address] Terrell Gautam MD [address] [address] CREATION, BYPASS, ARTERIAL, FEMORAL TO POPLITEAL [10315 (CPT )] Surgery Details Date/Time Status Location [...] drink first t dino in the morning (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 0 10/18/2021 CAGE Questionnaire Score 0 022 Utilities Answer Date Recorded In the past 12 months has th e [employer], gas, oil, or water [employer] threatened to shut off services in [...] Illness or Injury 10/19/2024 1145 by Keyla Cohw Outcome: Met [...] meal set-up provided Taken 10/17/20242107 by Jourdan Grmies II, seed technician Review/Management: medications reviewed Problem: Skin Injury [...] Ongoing, Progressing Intervention: Promote Activity and Functional [place] Flowsheets (Taken 10/19/2024 1048) Self-Care Promotion: BADL personal objects within reach meal set-up provided * Yuni Ramires - Keyla Chow - 10/19/2024 11:45 AM EDT Images from the original note were not included. 13430 After Peripheral Artery Bypass Surgery: In the [...] home. Last Reviewed Date: 2023 00:00:00 ?? 1703-3399 [employer]. All rights reserved. This information is not intended as a substitute for professional medical care. Always follow your healthcare professional's instructions. * Progress Notes - Emelina Friend - 10/19/2024 11:44 AM EDT Case Management Adult Progress Note Bev Bobby 64 y.o. male CSN: [id number] Admission: 10/17/2024 6:21 AM Primary Problem: Critical [...] if any other needs arise. Emelina Friend DRIVER/REFUSE COLLECTOR, PULP MACHINE OPERATOR Social Work Case Management * Yuni Ramires - Keyla Chow - 10/19/2024 11:44 AM EDT Images from the original note were not included. [id number] Peripheral Artery Disease (PAD) Peripheral artery disease [...] cause. Last Reviewed Date: 2024 00:00:00 ?? 1993-2595 [employer]. All rights reserved. This information is not intended as a substitute for professional medical care. Always follow your healthcare professional's instructions. * Yuni Ramires - Keyla Chow - 10/19/2024 11:44 AM EDT Images from the original note were not included. [id number] Leg Artery Emergencies: Critical Limb Ischemia (CLI) [...] appointments. Last Reviewed Date: 2023 00:00:00 ?? 7858-1535 [employer]. All rights reserved. This information is not intended as a substitute for professional medical care. Always follow your healthcare professional's instructions. * Discharge Summary - Dandy Baltazar MD - 10/19/2024 11:31 AM EDT Hospitalization Admit Date/Time: 10/17/2024 6:21 AM Admitting Attending: Terrell Gautam Discharge Date: 10/19/24 Discharge Attending Physician: Nirmal Cueto MD PCP name and Address: Asad Victor MD (Inactive) [address] [facility] [address] Referring provider name and address: Timothy Marques PA [address] [place] [address] Chief Concern, Brief History of Present Illness, and Hospital Course Bev Bobby is an 64 y.o. 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 [...] Your Medications These medications were sent to [facility] [place], [place] - [address] [facility] [facility]., [facility] [address] acetaminophen 500 MG tablet clopidogrel 75 MG [...] of water. 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 [...] provided Taken 10/17/20242107 by Jourdan Grimes II seed technician Review/Management: medications reviewed Problem: Skin Injury [...] Ongoing, Progressing Intervention: Promote Activity and Functional [place] Flowsheets (Taken 10/19/2024 1048) Self-Care Promotion: BADL [...] evaluation. PARTICIPANTS IN CARE Visitors Present No Hourly Sign Language Interpreter (if applicable) PRESENTATION Oxygen Oxygen Therapy: None [...] Level of Mobility Ambulatory- household only Mobility [place] Independent gait with device (rollator) History of [...] numbness in rodney) BED MOBILITY Level of [place] Physical/Non- physical Assist Adaptive Equipment Utilized Rolling/ Turning Scooting/ Bridging Modified independence (anteriorly to EOB) Bed rails Supine to Sit Modified [place] (to the right) (HOB flat) Bed rails Sit to Supine Interventions HOB flat to simulate home environment TRANSFERS Level of [place] Physical/Non- physical Assist Adaptive Equipment Utilized Sit [...] stable surfaces during transitions. AMBULATION Level of [place] Distance Adaptive Equipment Utilized Ambulation Standby assist, [...] Posture: Forward head, Rounded shoulders Level of [place] Balance Support Interventions Static Sit Independent Right [...] Assessments Standardized Assessments: AMPA 6-Clicks Mobility Assessment [facility] 6-Clicks Mobility Assessment Difficulty patient has turning [...] 3-5 steps with a railing?: A little [facility] 6-Clicks Mobility Assessment Total : 22 ASSESSMENT [...] evaluation/session. Participants in Care Family/Caregiver Present: No Hourly Sign Language Interpreter: Not Applicable Presentation Oxygen Therapy: None (Room [...] Level of Mobility: Ambulatory- household only Mobility [place]: Independent gait with device (rollator) History of [...] Mobility Bed Mobility Exam: Scooting/Bridging Level of [place]: Modified independence (anteriorly to EOB) Assistive Device: Bed rails Bed Mobility Exam: Supine to Sit Level of [place]: Modified [place] (to the right) Physical/Nonphysical Assist: (HOB flat) Assistive Device: Bed rails Transfers Transfer Exam: Sit to stand Level of [place]: Stand-by assist Physical/Nonphysical Assist: Supervision, Verbal Cues, Minimal cues Assistive Device: Walker, rolling Transfer Exam: Stand to Sit Level of [place]: Stand-by assist Physical/Nonphysical Assist: Supervision, Verbal Cues, [...] time. Standardized Assessments [facility] 6-Click Daily Activities Help from Other: Don/Doff Regular Lower Body Clothings: None Help From Other: Bathing: Little Help From Other: Toileting: None Help From Other: Don/Doff Upper Body Clothings: None Help From Other: Grooming: None Help From Other: Eating Meals: None [facility] 6 Click - Daily Activities Score: 23/24 [facility] Scoring Interpretation: Scores greater than 20.5 suggest [...] Note Bev Bobby 64 y.o. male CSN: [id number] Admission: 10/17/2024 6:21 AM Primary Problem: Critical limb ischemia of left lower extremity Car Sweeper reviewed chart and spoke with patient to complete this Initial Case Management Assessment. PCP: Asad Victor MD (Inactive) - Dr. Palomo Preferred pharmacy is [facility] Emergency Contact: Extended Emergency Contact Information Primary Emergency Contact: Patti Hill Relation: Sister Hourly Sign Language Interpreter needed? No Insurance: Primary Visit Coverage Payer Plan Sponsor Code Group Number Group Name [facility] MEDICARE [facility] MEDICARE REPLACEMENT [id number] Primary Visit Coverage Subscriber Subscriber ID Subscriber Name Subscriber [facility] Subscriber Address [id number] BVE BOBBY [id number] [place] [address] Secondary Visit Coverage Payer Plan Sponsor Code Group Number Group Name [employer] MEDICAID [facility] Secondary Visit Coverage Subscriber Subscriber ID Subscriber Name Subscriber [facility] Subscriber Address [id number] BEV BOBBY [id number] [place] [address] Patient information: Primary Caregiver: Self Daily Living Activities: Functional Status: Independent Living Arrangements: Alone Type of Residence: Private residence, Single Level [address] [place] [address] Current DME: Equipment Currently Used at Home: joy monterroso Income Information: Income Source: Retired Income/Expense Information: Income meets expenses Current Resources Utilized: Food [place] Housing Circumstances-Z Codes: Housing Circumstances (select all [...] Dialysis Services: None. Living Will/Advance Directive/Power of Solid Waste Analyst /Guardian: Denied. Additional Comments: Patient is not medically ready for discharge. SW will continue to follow. Mariia Monterroso PULP MACHINE OPERATOR * Care Plan - Emilia Alonso [...] the original note were not included. [facility] Department of Surgery Division of Vascular [...] Prevention: activity supervised assistive device/personal items within [facility] fall prevention program maintained lighting adjusted clutter-free [...] Agree with above assessment and evaluation from resident/RESEARCHER. * Op Note - Terrell Gautam MD - 10/17/2024 8:52 AM EDT Operative Note Date: 10/17/24 Location: [facility] OR Name: Bev Bobby, : 1960, Diagnoses: Pre-op Diagnosis Critical limb ischemia of left lower extremity Common femoral artery pseudoaneurysm Post-op Diagnosis Critical limb ischemia of left lower extremity Common femoral artery pseudoaneurysm Procedure(s): Left common/superficial/profunda femoral thromboendarterectomy with bovine patch repair Left external iliac artery/RIPSHEAR OPERATOR stent Attending Surgeon(s): * Terrell Gautam - Primary Senior Insight Manager(s): * Luna Beckett MD - Resident [...] Necessity Reasons Recent surgery contiguous with urinary tract/SENIOR MATERIALS SCIENTIST/colorectal 10/17/24 190 Output (mL) 50 mL 10/18/24 08 Implants Type Name Action Serial No. VASCUGUARD 8 X 8 - [id number] Implanted STENT ENDOPROSTHESIS VIABAHN 9FR [id number] - [id number] Implanted [id number] Specimen: Specimens ID Source Frozen? 1 Other [...] and distal control. We then proceeded with fsjnq-kbw-tbwn exposure of the popliteal artery. A medial [...] balloon dilated thestent with a 9 mm [place]. We closed the arteriotomy with a single [...] 10/17/2024 8:52 AM EDT Date: 10/17/24 Location: [facility] OR Name: Bev Bobby, : 1960, Diagnoses: Pre-op Diagnosis Critical limb ischemia of left lower extremity Common femoral artery pseudoaneurysm Post-op Diagnosis Critical limb ischemia of left lower extremity Common femoral artery pseudoaneurysm Procedure(s): Left common/superficial/profunda femoral thromboendarterectomy with bovine patch repair Left external iliac artery/RIPSHEAR OPERATOR stent Attending Surgeon(s): * Terrell Gautam - Primary Senior Insight Manager(s): * Luna Beckett MD - Resident - Assisting * Dandy Baltazar MD - Fellow Anesthesia: General ASA: III Blood Administration: Blood Product Administration History None Estimated Blood Loss: 300 mL Drains: Urethral Catheter Temperature probe 16 Fr. (Active) Implants Type Name Action Serial No. VASCUGUARD 8 X 8 - [id number] Implanted STENT ENDOPROSTHESIS VIABAHN 9FR [id number] - [id number] Implanted [id number] Specimen: Specimens ID Source Frozen? 1 Other [...] issues. 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 He previouslyunderwent thrombin injection. He reports pain in his calves. He presents today for scheduled left lower extremity femoral to doglt-gvo-happ popliteal bypass. Planned likely use PTFE. He [...] 16. Results Review {Vanishing Link Review Results :[id number] I have reviewed the latest lab and imaging results. Assessment & Plan Critical limb ischemia of left lower extremity Proceed with scheduled surgery left lower extremity femoral to xsawh-wjo-ubxz popliteal artery bypass graft. Extensive discussion had [...] [facility] [address] [place] [address] 11/26/2024 2:30 PM EDT Hospital Encounter [facility] [address] [place] [address] 11/26/2024 3:20 PM EDT Office Visit [facility] [address] [facility] 5th Floor [address] [place] [address] Elisabet Schuster, PA [address] [facility] [address] [place] [address] 11/29/2024 2:30 PM EDT Office Visit [facility] [address] [place] [address] Oscar Appiah MD [address] [facility] [address] [place] [address] Pending Results Name Type Priority Associated Diagnoses [...] Type Associated Problems Recent Progress Patient-Stated? Author Autogene louise Goal Care Plan Autogenerated Problem No [...] POCT glucose meter (10/19/2024 11:40 AM EDT) [facility] POCT Glucose 207(H) 74 - 99 mg/dL [...] Comment 10/19/2024 11:42 AM EDT HEALTHCARE LAB Hot Billet Shear Operator ID KamranJob 10/20/19 11:42 AM EDT HEALTHCARE LAB Device ID [id number] 10/19/2024 11:42 AM EDT HEALTHCARE LAB Specimen Type POC Capillary 10/19/2024 11:42 AM EDT [facility] Blood Capillary blood specimen / Unknown 10/19/2024 11:40 AM EDT 10/19/2024 11:42 AM EDT us Terrell Gautam MD LAB POINT OF CARE TE ST DOCKED DEVICE UNSOLICITED RESULTS Final Result Performing Organization Address City/State/[facility] Co de Phone Number HEALTHCARE LAB [address] [place] [address] * (ABNORMAL) Protime-INR (10/19/2024 8:25 AM EDT) [facility] Prothrombin Time 17.5(H) 12.0 - 14.3 sec [...] Final Result Performing Organization Address [facility]/ZIP Co de Phone Number [facility] [address] [place] [address] * (ABNORMAL) Phosphorus (10/19/2024 8:25 AM EDT) Phosphorus, Plasma 2.2(L) 2.5 - 4.5 mg/dL 10/19/2024 9:12 AM EDT [facility] Blood Venous blood specimen / Unknown Venipuncture / Unknown 10/19/2024 8:25 AM EDT 10/19/2024 8:43 AM EDT us Nirmal Cueto MD LAB BLOOD ORDERABLES Final Result Performing Organization Address [facility] Co de Phone Number [facility] [address] [place] [address] * Magnesium (10/19/2024 8:25 AM EDT) Magnesium, Plasma 2.1 1.9 - 2.4 mg/dL 10/19/2024 9:12 AM EDT [facility] Blood Venous blood specimen / Unknown Venipuncture / Unknown 10/19/2024 8:25 AM EDT 10/19/2024 8:43 AM EDT Nirmal Cueto MD LAB BLOOD ORDERABLES Final Result Performing Organization Address [facility] Co de Phone Number [facility] [address] [place] [address] * (ABNORMAL) Basic metabolic panel (10/19/2024 8:25 [...] [facility] [address] [place] [address] * (ABNORMAL) CBC W/O Differential (10/19/2024 8:25 [...] [facility] [address] [place] [address] * (ABNORMAL) POCT glucose meter (10/19/2024 7:35 AM EDT) [facility] POCT Glucose 187(H) 74 - 99 [...] Comment 10/19/2024 7:37 AM EDT HEALTHCARE LAB Hot Billet Shear Operator ID Job Andrew 10/20/19 7:37 AM EDT HEALTHCARE LAB Device ID [id number] 10/19/2024 7:37 AM EDT HEALTHCARE LAB Specimen Type POC Capillary 10/19/2024 7:37 AM EDT HEALTHCARE LAB Blood Capillary blood specimen / Unknown 10/19/2024 7:35 AM EDT 10/19/2024 7:37 AM EDT us Terrell Gautam MD LAB POINT OF CARE TE ST DOCKED DEVICE UNSOLICITED RESULTS Final Result Performing Organization Address City/State/[facility] Co de Phone Number HEALTHCARE LAB [address] [place] [address] * (ABNORMAL) POCT glucose meter (10/18/2024 7:22 [...] Comment 10/18/2024 7:24 PM EDT HEALTHCARE LAB Hot Billet Shear Operator ID Mahesh Aldana 10/18/2024 7:24 PM EDT HEALTHCARE LAB Device ID [id number] 10/18/2024 7:24 PM EDT HEALTHCARE LAB Specimen Type POC Capillary 10/18/2024 7:24 PM EDT HEALTHCARE LAB Blood Capillary blood specimen / Unknown 10/18/2024 7:22 PM EDT 10/18/2024 7:24 PM EDT us Terrell Gautam MD LAB POINT OF CARE TE ST DOCKED DEVICE UNSOLICITED RESULTS Final Result Performing Organization Address City/[facility] Co de Phone Number [facility] [address] [place] [address] * (ABNORMAL) POCT glucose meter (10/18/2024 6:07 PM EDT) Pathologist [facility] POCT Glucose 167(H) 74 - 99 mg/dL [...] Comment 10/18/2024 6:09 PM EDT HEALTHCARE LAB Hot Billet Shear Operator ID David Parks 10/18/2024 6:09 PM EDT HEALTHCARE LAB Device ID [id number] 10/18/2024 6:09 PM EDT HEALTHCARE LAB Specimen Type POC Capillary 10/18/2024 6:09 PM EDT [facility] Blood Capillary blood specimen / Unknown 10/18/2024 6:07 PM EDT 10/18/2024 6:09 PM EDT Terrell Gautam MD LAB POINT OF CARE TE ST DOCKED DEVICE UNSOLICITED RESULTS Final Result Performing Organization Address City/[facility] Co de Phone Number [facility] [address] [place] [address] * (ABNORMAL) POCT glucose meter (10/18/2024 11:56 AM EDT) Pathologist [facility] POCT Glucose 233(H) 74 - 99 mg/dL [...] 10/21/2024 7:42 AM EDT [facility] Hot Billet Shear Operator ID Venessa Marcano 10/21/2024 7:42 AM EDT [facility] Device ID [id number] 10/21/2024 7:42 AM EDT HEALTHCARE LAB Specimen Type POC Capillary 10/21/2024 7:42 AM EDT HEALTHCARE LAB Blood Capillary blood specimen / Unknown 10/18/2024 11:56 AM EDT 10/21/2024 7:42 AM EDT us Terrell Gautam MD LAB POINT OF CARE TE ST DOCKED DEVICE UNSOLICITED RESULTS Final Result Performing Organization Address [facility] Co de Phone Number [facility] [address] [place] [address] * (ABNORMAL) POCT glucose meter (10/18/2024 9:24 AM EDT) [facility] POCT Glucose 322(H) 74 - 99 mg/dL [...] Comment 10/21/2024 7:42 AM EDT HEALTHCARE LAB Hot Billet Shear Operator ID Emilia Alonso 7:42 AM EDT HEALTHCARE LAB Device ID [id number] 10/21/2024 7:42 AM EDT HEALTHCARE LAB Specimen Type POC Venous 10/21/2024 7:42 AM EDT HEALTHCARE LAB Blood Venous blood specimen / Unknown 10/18/2024 9:24 AM EDT 10/21/2024 7:42 AM EDT us Terrell Gautam MD LAB POINT OF CARE TE ST DOCKED DEVICE UNSOLICITED RESULTS Final Result Performing Organization Address City/[facility] Co de Phone Number [facility] [address] [place] [address] * (ABNORMAL) POCT glucose meter (10/18/2024 7:36 AM EDT) [facility] POCT Glucose 215(H) 74 - 99 [...] Comment 10/18/2024 7:38 AM EDT HEALTHCARE LAB Hot Billet Shear Operator ID Kizzy Godfrey 025 7:38 AM EDT HEALTHCARE LAB Device ID [id number] 10/18/2024 7:38 AM EDT [facility] Specimen Type POC Capillary 10/18/2024 7:38 AM EDT [facility] Blood Capillary blood specimen / Unknown 10/18/2024 7:36 AM EDT 10/18/2024 7:38 AM EDT us Terrell Gautam MD LAB POINT OF CARE TE ST DOCKED DEVICE UNSOLICITED RESULTS Final Result HEALTHCARE LAB [address] [place] [address] * (ABNORMAL) CBC (10/18/2024 2:09 AM EDT) [facility] WBC Count 16.71(H) 3.70 - 10.30 [...] [facility] [address] [place] [address] * (ABNORMAL) Basic metabolic panel (10/18/2024 2:09 [...] BLOOD ORDERABLES Final Result Performing Organization Address City/[facility]/ZIP Co de Phone Number [facility] [address] [place] [address] * (ABNORMAL) Magnesium (10/18/2024 2:09 AM EDT) Magnesium, Plasma 1.8(L) 1.9 - 2.4 mg/dL 10/18/2024 2:53 AM EDT [facility] Blood Venous blood specimen / Unknown Venipuncture / Unknown 10/18/2024 2:09 AM EDT 10/18/2024 2:25 AM EDT Nirmal Cueto MD LAB BLOOD ORDERABLES Final Result [facility] [address] [place] [address] * Phosphorus (10/18/2024 2:09 AM EDT) Phosphorus, Plasma 3.7 2.5 - 4.5 mg/dL 10/18/2024 2:53 AM EDT [facility] Blood Venous blood specimen / Unknown Venipuncture / Unknown 10/18/2024 2:09 AM EDT 10/18/2024 2:25 AM EDT Nirmal Cueto MD LAB BLOOD ORDERABLES Final Result Performing Organization Address [facility] Co de Phone Number [facility] [address] [place] [address] * (ABNORMAL) Protime-INR (10/18/2024 2:09 AM EDT) [...] of recurrent KS INR 2.5 to 3.5 Nirmal Cueto MD LAB BLOOD ORDERABLES Final Result Performing Organization Address [facility] Co de Phone Number [facility] [address] [place] [address] * (ABNORMAL) POCT glucose meter (10/18/2024 2:08 AM EDT) POCT Glucose 202(H) 74 - 99 mg/dL 10/18/2024 2:10 AM EDT [facility] Comment:Accuracy of a glucos e result [...] Comment 10/18/2024 2:10 AM EDT HEALTHCARE LAB Hot Billet Shear Operator ID Jourdan Grimes II 10/18/2024 2:10 AM EDT HEALTHCARE LAB Device ID [id number] 10/18/2024 2:10 AM EDT HEALTHCARE LAB Specimen Type POC Capillary 10/18/2024 2:10 AM EDT HEALTHCARE LAB Blood Capillary blood specimen / Unknown 10/18/2024 2:08 AM EDT 10/18/2024 2:10 AM EDT us Terrell Gautam MD LAB POINT OF CARE TE ST DOCKED DEVICE UNSOLICITED RESULTS Final Result Performing Organization Address City/State/[facility] Phone Number HEALTHCARE LAB [address] [place] [address] * (ABNORMAL) POCT glucose meter (10/17/2024 10:07 PM EDT) [facility] POCT Glucose 300(H) 74 - 99 [...] Comment 10/17/2024 10:10 PM EDT HEALTHCARE LAB Hot Billet Shear Operator ID Jourdan Grimes II 10/17/2024 10:10 PM EDT HEALTHCARE LAB Device ID [id number] 10/17/2024 10:10 PM EDT HEALTHCARE LAB Specimen Type POC Capillary 10/17/2024 10:10 PM EDT HEALTHCARE LAB Blood Capillary blood specimen / Unknown 10/17/2024 10:07 PM EDT 10/17/2024 10:10 PM EDT us Terrell Gautam MD LAB POINT OF CARE TE ST DOCKED DEVICE UNSOLICITED RESULTS Final Result Performing Organization Address City/State/[facility] Co de Phone Number HEALTHCARE LAB [address] [place] [address] * (ABNORMAL) POCT glucose meter (10/17/2024 8:07 PM EDT) [facility] POCT Glucose 391(H) 74 - 99 [...] Comment 10/17/2024 8:10 PM EDT HEALTHCARE LAB Hot Billet Shear Operator ID Cornelio WALTERS Jourdan 10/17/2024 8:10 PM EDT HEALTHCARE LAB Device ID [id number] 10/17/2024 8:10 PM EDT [facility] Specimen Type POC Capillary 10/17/2024 8:10 PM EDT [facility] Blood Capillary blood specimen / Unknown 10/17/2024 8:07 PM EDT 10/17/2024 8:10 PM EDT Terrell Gautam MD LAB POINT OF CARE TE ST DOCKED DEVICE UNSOLICITED RESULTS Final Result Performing Organization Address [facility] Co de Phone Number HEALTHCARE LAB [address] [place] [address] * (ABNORMAL) POCT glucose meter (10/17/2024 4:01 PM EDT) [facility] POCT Glucose 249(H) 74 - 99 [...] 10/17/2024 4:03 PM EDT [facility] Hot Billet Shear Operator ID Chelsieamanda Keisha 10/17/2024 4:03 PM EDT [facility] Device ID [id number] 10/17/2024 4:03 PM EDT [facility] Specimen Type POC Capillary 10/17/2024 4:03 PM EDT [facility]ALTH[facility]ARE [facility] Blood Capillary blood specimen / Unknown 10/17/2024 4:01 PM EDT 10/17/2024 4:03 PM EDT us Terrell Gautam MD LAB POINT OF CARE TE ST DOCKED DEVICE UNSOLICITED RESULTS Final Result Performing Organization Address City/[facility] Co de Phone Number [facility] [address] [place] [address] * (ABNORMAL) POCT glucose meter (10/17/2024 1:25 PM EDT) [facility] Signature POCT Glucose 225(H) 74 [...] 10/17/2024 1:27 PM EDT [facility] Hot Billet Shear Operator ID Kizzy Godfrey 025 1:27 PM EDT [facility] Device ID [id number] 10/17/2024 1:27 PM EDT [facility] Specimen Type POC Capillary 10/17/2024 1:27 PM EDT HEALTHCARE LAB Blood Capillary blood specimen / Unknown 10/17/2024 1:25 PM EDT 10/17/2024 1:27 PM EDT us Terrell Gautam MD LAB POINT OF CARE TE ST DOCKED DEVICE UNSOLICITED RESULTS Final Result Performing Organization Address City/[facility] Co de Phone Number [facility] [address] [place] [address] * [place] Less than 1 Hour Intraoperative [...] Seconds 10/29/2024 7:28 AM EDT HEALTHCARE LAB Hot Billet Shear Operator ID Donna Mcmillan 10/29/2024 7:28 AM EDT HEALTHCARE LAB ACT Device ID [id number] 10/29/2024 7:28 AM EDT [facility] Comment 10/29/2024 7:28 AM EDT [facility] [...] RESULTS Final Result Performing Organization Address City/[facility] de Phone Number [facility] [address] LAB [address] [place] [address] * (ABNORMAL) Blood gas, arterial (10/17/2024 11:48 [...] [facility] [address] [place] [address] * POCT ACT (10/17/2024 11:41 AM EDT) ACT+ (HIGH RANGE) 175 68 - 600 Seconds 10/29/2024 7:28 AM EDT [facility] Hot Billet Shear Operator ID Oneyda Alicea 10/29/2024 7:28 AM EDT [facility] ACT Device ID [id number] 10/29/2024 7:28 AM EDT [facility] Comment 10/29/2024 7:28 AM EDT [facility] Comment: ACT performed by [...] Final Result Performing Organization Address [facility] Co de Phone Number HEALTHCARE LAB [address] LAB [address] [place] [address] * POCT ACT (10/17/2024 11:11 AM EDT) [facility] Signature ACT+ (HIGH RANGE) 252 68 - 600 Seconds 10/29/2024 7:28 AM EDT [facility] Hot Billet Shear Operator ID Donna Mcmillan 10/29/2024 7:28 AM EDT [facility] ACT Device ID [id number] 10/29/2024 7:28 AM EDT [facility] Comment 10/29/2024 7:28 AM EDT [facility] Comment: ACT performed by [...] RESULTS Final Result Performing Organization Address City/[facility] Co de Phone Number HEALTHCARE LAB [address] LAB [address] [place] [address] * (ABNORMAL) Blood gas, arterial (10/17/2024 10:46 [...] EDT 10/17/2024 10:54 AM EDT us Jenna Munira Lopez RESEARCHER LAB BLOOD ORDERABLES Final Re sult Performing Organization Address [facility] Co de Phone Number [facility] [address] [place] [address] * POCT ACT (10/17/2024 10:37 AM EDT) ACT+ (HIGH RANGE) 206 68 - 600 Seconds 10/29/2024 7:28 AM EDT HEALTHCARE LAB Hot Billet Shear Operator ID Donna Mcmillan 10/29/2024 7:28 AM EDT [facility] ACT Device ID [id number] 10/29/2024 7:28 AM EDT [facility] Comment 10/29/2024 7:28 AM EDT [facility] [...] Final Result Performing Organization Address [facility] de Phone Number [facility] [address] [place] [address] * Surgical Pathology Exam (10/17/2024 10:27 AM EDT) Case Report Surgical Pathology Case: [id number] Authorizing Provider: Terrell Gautam MD Collected: 10/17/2024 1027 Ordering Location: [facility] A OPERATING ROOM Received: 10/17/2024 [...] The specimen is serially sectioned and outside sales account representative sections are submitted in cassette [...] [facility] [address] [place] [address] * POCT ACT (10/17/2024 10:03 AM EDT) ACT+ (HIGH RANGE) 244 68 - 600 Seconds 10/29/2024 7:28 AM EDT [facility] Hot Billet Shear Operator ID Donna Mcmillan 10/29/2024 7:28 AM EDT HEALTHCARE LAB ACT Device ID [id number] 10/29/2024 7:28 AM EDT HEALTHCARE LAB Comment [...] UNSOLICITED RESULTS Final Result [facility] [address] LAB [address] [place] [address] * (ABNORMAL) Blood gas, arterial (10/17/2024 9:45 [...] [facility] [address] [place] [address] * (ABNORMAL) Blood gas, arterial (10/17/2024 8:47 [...] [facility] [address] [place] [address] * POCT ACT (10/17/2024 8:46 AM EDT) ACT+ (HIGH RANGE) 101 68 - 600 Seconds 10/29/2024 7:28 AM EDT [facility] Hot Billet Shear Operator ID Donna Mcmillan 10/29/2024 7:28 AM EDT [facility] ACT Device ID [id number] 10/29/2024 7:28 AM EDT [facility] Comment 10/29/2024 7:28 AM EDT [facility] [...] Final Result [facility] [address] LAB [address] [place] [address] * Type and Screen (10/17/2024 7:19 AM [...] Final Result Performing Organization Address [facility] Co de Phone Number BLOOD BANK [address] [place] [address] * (ABNORMAL) POCT glucose meter (10/17/2024 6:44 AM EDT) [facility] POCT Glucose 178(H) 74 - 99 [...] 10/17/2024 6:49 AM EDT [facility] Hot Billet Shear Operator ID Hunter Burroughs 10/18/19 6:49 AM EDT [facility] Device ID [id number] 10/17/2024 6:49 AM EDT [facility] Specimen Type POC Capillary 10/17/2024 6:49 AM EDT [facility] Blood Capillary blood specimen / Unknown 10/17/2024 6:44 AM EDT 10/17/2024 6:49 AM EDT us Terrell Gautam MD LAB POINT OF CARE TE ST DOCKED DEVICE UNSOLICITED RESULTS Final Result [facility]ARE [facility] [address] [place] [id number] documented in this encounter Visit Diagnoses Diagnosis [...] PRN, Starting on 10/19/24 at 0418, Until Mon10/19/24 at 1439, Routine, [...] Marcano, RN) 0952 (Given - Provider: Keyla Chwo) magnesium sulfate IVPB 2 g (COMPLETED) 2 [...] Mao, CHRISTIAN) 0951 (Given - Provider: Keyla Chwo) Povidone-Iodine 5 % swab solution 1 Application [...] documented as of this encounter Care Teams Cement Tester Assistant Relationship Specialty Start Date End Date Asad Victor MD [address] [place] [id number] PCP - General 10/07/22 documented as of this encounter
--- OUTSIDE RECORDS SUMMARY | 2024-11-05 21:45 | XMS_ITS | Encounter Summary ---
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 potential Monday discharge if patient does go home. SW will continue to follow and assist as needed. Mariia Macedo CATERPILLAR DRIVER * Progress Notes - Bianca Knight PharmD [...] to follow, Submitted by: Bianca Knight, PharmD, [facility] 11/08/2024 11:15 AM * Progress Notes - Melecio Echevarria DO - 11/08/2024 7:18 AM EDT Images from the original note were not included. [facility] Department of Surgery Division of Vascular Surgery Surgery Progress Note 11/08/24 Bev Borja Subjective Subjective: HPI 64yoM PMHx COPD, T2DM, HLD, HTN, RLS, CAD s/p PCI (on Xarelto) s/p pacemaker c/b left SANDIP pseudoaneurysm s/p thrombin injection 09/21/24, CLI s/p left femoral endarterectomy with EIA/STRIKE OUT MACHINE OPERATOR stenting 10/17/24, [facility] [...] MD Home meds Hold blood thinners Diabetes ([facility]) Overview Addendum 10/19/2021 10:41 AM by Giovanna [...] completed 10/19 Pseudoaneurysm of left femoral artery ([facility]) COPD (chronic obstructive pulmonary disease) ([facility]) Overview Signed 10/18/2021 7:30 PM by Gallo Gallardo MD Not on home inhalers A-fib ([facility]) Overview Addendum 10/19/2021 10:39 AM by Giovanna Junior APRN Hold anticoagulation Metoprolol restarted BPH (benign prostatic hyperplasia) Overview Addendum 10/19/2021 10:41 AM by Giovanna Junior APRN Flomax restarted Subarachnoid hemorrhage ([facility]) Overview Addendum 10/20/2021 8:23 AM by Giovanna Junior APRN Left frontal, right occipital NSGY consulted - Repeat CTH showing slight worsening of tSAH - no need for further imaging, will continue to follow clinically 10/20: spoke with NSGY via phone and stated to hold ASA and Xarelto for 2 weeks Closed compression fracture of L3 lumbar vertebra, initial encounter ([facility]) Overview Signed 10/18/2021 7:35 PM by Gallo [...] 09/21/24, CLI s/p left femoral endarterectomy with EIA/STRIKE OUT MACHINE OPERATOR stenting 10/17/24, [facility] [...] 1960 Age: 64 y.o. Patient has a Surfacer Operator: Berger RIVERBOAT MASTER-PM Remaining battery longevity adequate. Lead integrity test [...] recommendations. Supporting reports can be found in Lucky Sort file. Micro: Susceptibility data from last 90 days. Collected Specimen Info Organism 11/06/24 Tissue from Other (specify site) Gram Negative Jesus 11/06/24 Swab from Other (specify site) Enterobacter cloacae complex Results Procedure Component Value Units Date/Time Fungal Culture, Routine [[id number]] Collected: 11/06/241127 Order Status: Completed Specimen: Swab from Other (specify site) Updated: 11/08/24 0919 Culture No Fungal Growth <1 Week Fungal Culture, Routine [[id number]] Collected: 11/06/241128 Order Status: Completed Specimen: Swab from Other (specify site) Updated: 11/08/24 0919 Culture No Fungal Growth <1 Week Fungal Culture, Tissue and ISIDRO [[id number]] Collected: 11/06/24 113 Order Status: Completed Specimen: Tissue from Other (specify site) Updated: 11/08/24 0912 Culture Reading Mycological 4 Weeks No Fungal Growth <1 Week ISIDRO No fungal elements seen Blood Culture (Aerobic/Anaerobet Set) [[id number]] Collected: 11/06/24106 Order Status: Completed Specimen: Blood from AC, Left Updated: 11/08/24 0302 Culture No growth at day 2 Blood Culture (Aerobic/Anaerobet Set) [[id number]] Collected: 11/06/24106 Order Status: Completed Specimen: Blood from Hand, Right Updated: 11/08/24 0302 Culture No growth at day 2 Tissue Culture and Gram Stain [[id number]] (Abnormal) Collected: 11/06/241133 Order Status: Completed Specimen: [...] in pairs Routine Culture and Gram Stain [[id number]] (Abnormal) Collected: 11/06/241128 Order Status: Completed Specimen: Swab from Other (specify site) Updated: 11/07/24 1426 Culture Moderate Growth Enterobacter cloacae complex Comment: This isolate has been identified using the FDA Approved [employer] [place] System The organism value for this result has been updated. These results have been appended to the previously preliminary verified report. Gram Stain Result No polymorphonuclear leukocytes seen No organisms seen AFB Culture, Non Respiratory Source and Acid Fast Stain [[id number]] Collected: 11/06/24 1134 Order Status: Completed Specimen: Tissue from Other (specify site) Updated: 11/07/24 1404 Acid Fast Stain No acid fast bacilli seen Routine Culture and Gram Stain [[id number]] Collected: 11/06/241127 Order Status: Completed Specimen: Swab from Other (specify site) Updated: 11/07/24 0855 Culture No growth at day 1 Gram Stain Result No organisms seen No polymorphonuclear leukocytes seen Anaerobic Culture [[id number]] Collected: 11/06/241127 Order Status: Sent Specimen: Swab from Other (specify site) Updated: 11/06/24 1220 Abscess Culture and Gram Stain [[id number]] Collected: 11/06/241127 Order Status: Canceled Specimen: Swab from Other (specify site) Updated: 11/06/24 1220 Anaerobic Culture [[id number]] Collected: 11/06/241128 Order Status: Sent Specimen: Swab from Other (specify site) Updated: 11/06/24 1219 Abscess Culture and Gram Stain [[id number]] Collected: 11/06/241128 Order Status: Canceled Specimen: Swab from Other (specify site) Updated: 11/06/24 121 Anaerobic Culture [[id number]] Collected: 11/06/241133 Order Status: Sent Specimen: Tissue [...] OSH. On 11/06, pt went to the [facility] vascular surgery for left groin exploration [...] the time spent on the encounter was [id number] providing direct patient care, counseling for the patient/caregiver, and care coordination. [1] Current Facility-Administered Medications Medication Dose Route Frequency Provider Last Rate Last Admin acetaminophen (Tylenol) tablet 1,000 mg 1,000 mg Oral q6h [facility] Anthony Reyes MD 1,000 mg at 11/08/24 0520 aspirin chewable tablet 81 mg 81 mg Oral Daily Reid Daniels MD 81 mg at 11/08/24 0837 cefepime (Maxipime) 2 g in sodium chloride 0.9% 100 mL IVPB (vial adapter required) 2 g [id number] Reid Daniels MD 36.7 mL/hr at 11/08/24 [...] Plan: OPAT at a medical/nursing facility (e.g, [facility], Swing Bed, Nursing facility) OPAT [...] Access: pending Patient Specific Outpatient Circumstances: [address] [place] [address] Contact information Bev Borja [phone] (home) Extended Emergency Contact Information Primary Emergency Contact: Patti Hill Relation: Sister Nail Specialist needed? No Outpatient services (including home [...] via secure chat or staff messaging in [employer]. OPAT Modified program for IV antimicrobial therapy [...] Note Bev Borja 64 y.o. male CSN: [id number] Admission: 11/05/2024 9:45 PM Primary Problem: Wound infection Office Associate reviewed chart and spoke with patient to complete this Initial Case Management Assessment. PCP: Asad Victor MD (Inactive) Dr. Palomo in [facility] Emergency Contact: Extended Emergency Contact Information Primary Emergency Contact: Patti Hill Relation: Sister Nail Specialist needed? No Insurance: Primary Visit Coverage Payer Plan Sponsor Code Group Number Group Name [facility] MEDICARE UHC MEDICARE REPLACEMENT [id number] Primary Visit Coverage Subscriber Subscriber ID Subscriber Name Subscriber SSN Subscriber Address [id number] BEV BORJA [id number] [place] [address] Secondary Visit Coverage Payer Plan Sponsor Code Group Number Group Name [facility]NA [facility] MEDICAID AETNA [facility] Secondary Visit Coverage Subscriber Subscriber ID Subscriber Name Subscriber SSN Subscriber Address [id number] BEV BORJA [id number] [place] [address] Patient information: Primary Caregiver: Self Support System: Immediate family Daily Living Activities: Functional Status: Independent Living Arrangements: Alone Type of Residence: Private residence, Single Level [address] [place] [address] Current DME: Equipment Currently Used at Home: walker, rollator Income Information: Income Source: Disabled Income/Expense Information: Income meets expenses Current Resources Utilized: Food [place] Housing Circumstances-Z Codes: Housing Circumstances (select all [...] Dialysis Services: None Living Will/Advance Directive/Power of Shear Operator /Guardian: Have you reviewed your Advance Directive and is it valid for this stay?: No Advance Directive: Not applicable Information Provided on Healthcare Directives: No Pre-existing DNR/DNI Order: No Patient Requests Assistance: No Additional Comments: Patient is not medically ready for discharge. Patient uses [facility] for transportation and will need assistance with discharge transport. SW will continue to follow. Mariia Macedo CATERPILLAR DRIVER * Progress Notes - Melecio Echevarria DO - 11/07/2024 9:24 AM EDT Images from the original note were not included. [facility] Department of Surgery Division of Vascular Surgery Surgery Progress Note 11/07/24 Bev Borja Subjective Subjective: HPI 64yoM PMHx COPD, T2DM, HLD, HTN, RLS, CAD s/p PCI (on Xarelto) s/p pacemaker c/b left SANDIP pseudoaneurysm s/p thrombin injection 09/21/24, CLI s/p left femoral endarterectomy with EIA/STRIKE OUT MACHINE OPERATOR stenting 10/17/24, [facility] [...] completed 10/19 Pseudoaneurysm of left femoral artery ([facility]) COPD (chronic obstructive pulmonary disease) ([facility]) Overview Signed 10/18/2021 7:30 PM by Gallo Gallardo MD Not on home inhalers A-fib ([facility]) Overview Addendum 10/19/2021 10:39 AM by Giovanna Junior APRN Hold anticoagulation Metoprolol restarted BPH (benign prostatic hyperplasia) Overview Addendum 10/19/2021 10:41 AM by Giovanna Junior APRN Flomax restarted Subarachnoid hemorrhage ([facility]) Overview Addendum 10/20/2021 8:23 AM by Giovanna Junior APRN Left frontal, right occipital NSGY consulted - Repeat CTH showing slight worsening of tSAH - no need for further imaging, will continue to follow clinically 10/20: spoke with NSGY via phone and stated to hold ASA and Xarelto for 2 weeks Closed compression fracture of L3 lumbar vertebra, initial encounter ([facility]) Overview Signed 10/18/2021 7:35 PM by Gallo [...] 09/21/24, CLI s/p left femoral endarterectomy with EIA/STRIKE OUT MACHINE OPERATOR stenting 10/17/24, [facility] [...] Edited by: Melecio Echevarria DO at 11/07/2024 0961 Dispo: Continue Current Level of Care Melecio [...] from the original note were not included. [facility] Department of Surgery Division of [...] of breath, nausea and vomiting. Pain Control: [facility]. Currently well controlled. Objective: Vitals: [...] Diet: Regular Anticoagulation/DVT ppx: Held Pain management: [facility] Level of care: Continue Current Level of Care I have answered and addressed all issues and concerns from the patient and nursing staff. I have notified senior resident/attending quality control representative with any issues or concerns. Melecio Echevarria [...] Agree with above assessment and evaluation from resident/PRODUCTION CONTROLLER. * Consults - Oscar Appiah MD - [...] the findings. Cardiac Device Check - PRE-OR [facility]: Pre-operative CIED Report Assessment and Sara-Procedural Reommendations: Name: Bev Borja Date: 10/17/2024 : 1960 Age: 64 y.o. Patient has a Surfacer Operator: Berger RIVERBOAT MASTER-PM Remaining battery longevity adequate. Lead integrity test [...] Procedure Component Value Units Date/Time Anaerobic Culture [[id number]] Collected: 11/06/241127 Order Status: Sent Specimen: Swab from Other (specify site) Updated: 11/06/241219 Fungal Culture, Routine [[id number]] Collected: 11/06/241127 Order Status: Sent Specimen: Swab from Other (specify site) Updated: 11/06/24 122 Routine Culture and Gram Stain [[id number]] Collected: 11/06/241127 Order Status: Sent Specimen: Swab from Other (specify site) Updated: 11/06/241219 Abscess Culture and Gram Stain [[id number]] Collected: 11/06/241127 Order Status: Canceled Specimen: Swab from Other (specify site) Updated: 11/06/241219 Anaerobic Culture [[id number]] Collected: 11/06/241128 Order Status: Sent Specimen: Swab from Other (specify site) Updated: 11/06/24 121 Fungal Culture, Routine [[id number]] Collected: 11/06/241128 Order Status: Sent Specimen: Swab from Other (specify site) Updated: 11/06/241218 Routine Culture and Gram Stain [[id number]] Collected: 11/06/241128 Order Status: Sent Specimen: Swab from Other (specify site) Updated: 11/06/241218 Abscess Culture and Gram Stain [[id number]] Collected: 11/06/241128 Order Status: Canceled Specimen: Swab from Other (specify site) Updated: 11/06/241218 Anaerobic Culture [[id number]] Collected: 11/06/241133 Order Status: Sent Specimen: Tissue from Other (specify site) Updated: 11/06/241217 Tissue Culture and Gram Stain [[id number]] Collected: 11/06/241133 Order Status: Sent Specimen: Tissue from Other (specify site) Updated: 11/06/241217 AFB Culture, Non Respiratory Source and Acid Fast Stain [[id number]] Collected: 11/06/241133 Order Status: Sent Specimen: Tissue from Other (specify site) Updated: 11/06/241217 Fungal Culture, Tissue and ISIDRO [[id number]] Collected: 11/06/24 1134 Order Status: Sent Specimen: Tissue from Other (specify site) Updated: 11/06/24 1218 Blood Culture (Aerobic/Anaerobet Set) [[id number]] Collected: 11/06/24106 Order Status: Completed Specimen: Blood from AC, Left Updated: 11/06/24402 Culture Culture in lab Blood Culture (Aerobic/Anaerobet Set) [[id number]] Collected: 11/06/24106 Order Status: Completed Specimen: Blood [...] OSH. On 11/06, pt went to the [facility] vascular surgery for left groin exploration [...] the time spent on the encounter was [id number] providing direct patient care, counseling for the patient/caregiver, and care coordination. [1] Past Medical History: Diagnosis Date Arthritis Old myocardial infarction History of myocardial infarction [2] Past Surgical History: Procedure Laterality Date ANKLE SURGERY Right CARDIAC PACEMAKER PLACEMENT CAROTID ENDARTERECTOMY N/A 2017 Endarterectomy Carotid Artery from Local Plant Source CORONARY ANGIOPLASTY Left Coronary Angiography With Concomitant Left Heart Catheterization from Local Plant Source CORONARY ARTERY BYPASS GRAFT N/A 2018 3V ELBOW SURGERY Right ENDARTERECTOMY Left 10/17/2024 common/SFA/Profunda thromboendarterectomy, EIA/STRIKE OUT MACHINE OPERATOR stent HERNIA REPAIR KNEE ARTHROSCOPY Left VASCULAR SURGERY Left 09/21/2024 STRIKE OUT MACHINE OPERATOR pseudoaneurym injection [3] Family History Problem Relation [...] tablet 1,000 mg 1,000 mg Oral q6h [facility] Anthony Reyes MD 1,000 mg at 11/06/24 [...] 0.625 mg 0.625 mg Intravenous Once PRN sAad Lechuga CRNA, DNP fentaNYL (Sublimaze) injection 25 [...] Note Bev Borja 64 y.o. male CSN: [id number] Admission: 11/05/2024 9:45 PM Primary Problem: Wound infection Patient in OR today. SW will continue to follow. Mariia Macedo CATERPILLAR DRIVER * Op Note - Jerry Holcomb MD - 11/06/2024 11:23 AM EDT Operative Note Date: 11/06/24 Location: [facility] OR Name: Bev Borja, : 1960, Diagnoses: Pre-op Diagnosis Surgical wound infection Post-op Diagnosis Surgical wound infection Procedure(s): Excisional debridement left groin (skin, subcutaneous tissue. Final measurements 10 x 7 x 6.5 cm) Excisional debridement left thigh (skin, subcutaneous tissue. Final measurements 8 x 2 x 3 cm) Attending Surgeon(s): * Nathaly Nowak - Primary Tire Mold Engraver(s): * Luna Beckett MD - Resident - [...] from the original note were not included. [facility] Department of Surgery Division of [...] HLD, HTN, RLS who presented to the [facility] on 11/05/2024 with problems with his wounds. [...] restarted once verified. Plan: - Admit to [facility] 2 - NPO, mIVF - Vanc/Zosyn, Blood [...] ENDARTERECTOMY N/A 2017 Endarterectomy Carotid Artery from Local Plant Source CORONARY ANGIOPLASTY Left Coronary Angiography With Concomitant Left Heart Catheterization from Local Plant Source CORONARY ARTERY BYPASS GRAFT N/A 2018 3V ELBOW SURGERY Right ENDARTERECTOMY Left 10/17/2024 common/SFA/Profunda thromboendarterectomy, EIA/STRIKE OUT MACHINE OPERATOR stent HERNIA REPAIR KNEE ARTHROSCOPY Left VASCULAR SURGERY Left 09/21/2024 STRIKE OUT MACHINE OPERATOR pseudoaneurym injection [4] Family History Problem Relation [...] Correction - Standard Dose 0-5 UnitsSubcutaneous q6h [facility] Anthony Reyes MD 2 Units at 11/06/24 [...] baseline. Psychiatric: Mood and Affect: Mood normal. [place] Coma Scale Score: 15 ED Course & [...] to inpatient Once Acknowledged ANTHONY REYES 11/05/24 5485 Consult to Vascular Surgery - Surg Red Once Specialty: Vascular Surgery Provider: (Not yet assigned) Completed [facility] ED Course as of 11/06/24612Nov 05, 2024 2311 On initial evaluation, patient is hemodynamically stable. Patient has history of traumatic left lower extremity STRIKE OUT MACHINE OPERATOR pseudoaneurysm s/p repair on 10/17 with Vascular [...] None Disposition Admit Admitting/Attending Physician: NATHALY NOWAK [[id number]] Provider Care Team: [facility] 2 [168] Are they the primary team?: Yes [1] - [1] Past Medical History: Diagnosis Date Arthritis Old myocardial infarction History of myocardial infarction [2] Past Surgical History: Procedure Laterality Date ANKLE SURGERY Right CARDIAC PACEMAKER PLACEMENT CAROTID ENDARTERECTOMY N/A 2017 Endarterectomy Carotid Artery from Local Plant Source CORONARY ANGIOPLASTY Left Coronary Angiography With Concomitant Left Heart Catheterization from Local Plant Source CORONARY ARTERY BYPASS GRAFT N/A 2018 3V ELBOW SURGERY Right ENDARTERECTOMY Left 10/17/2024 common/SFA/Profunda thromboendarterectomy, EIA/STRIKE OUT MACHINE OPERATOR stent HERNIA REPAIR KNEE ARTHROSCOPY Left VASCULAR SURGERY Left 09/21/2024 STRIKE OUT MACHINE OPERATOR pseudoaneurym injection [3] Family History Problem Relation [...] Description 11/26/2024 2:00 PM EDT Hospital Encounter [facility] [address] [place] [address] 11/26/2024 2:30 PM EDT Hospital Encounter [facility] [address] [place] [address] 11/26/2024 3:20 PM EDT Office Visit [facility] [address] [place] [address] Elisabet Schuster, GLENDA [address] [place] [address] 11/29/2024 2:30 PM EDT Office Visit [facility] [address] [place] [address] Oscar Appiah MD [address] [place] [address] Pending Results Name Type Priority [...] until 05/18/2026 Discharge Ambulatory referral to NON [facility] Outpatient Referral Routine Pseudoaneurysm of [...] UNSOLICITED RESULTS Routine 11/13/2024 5:16 PM EDT [facility] NEGATIVE PRESSURE WOUND THERAPY DME </= 50 [...] UNSOLICITED RESULTS Routine 11/11/2024 5:20 PM EDT [facility] NEGATIVE PRESSURE WOUND THERAPY DME >50 SQ [...] POCT glucose meter (11/14/2024 11:56 AM EDT) [facility] POCT Glucose 225(H) 74 - 99 [...] Comment 11/14/2024 11:57 AM EDT HEALTH[facility]ARE LAB Discharge Specialist ID Estefani Sheth 11/14/2024 11:57 AM EDT HEALTHCARE LAB Device ID [id number] 11/14/2024 11:57 AM EDT HEALTHCARE LAB Specimen Type POC Capillary 11/14/2024 11:57 AM EDT HEALTHCARE LAB Blood Capillary blood specimen / Unknown 11/14/2024 11:56 AM EDT 11/14/2024 11:57 AM EDT Nathaly Nowak MD LAB POINT OF CARE TE ST DOCKED DEVICE UNSOLICITED RESULTS Final Result Performing Organization Address City/State/[facility] Co de Phone Number HEALTHCARE LAB [address] [place] [address] * (ABNORMAL) POCT glucose meter (11/14/2024 8:05 AM EDT) [facility] POCT Glucose 150(H) 74 - 99 [...] 11/14/2024 8:06 AM EDT [facility] Discharge Specialist ID Estefani Sheth 11/14/2024 8:06 AM EDT HEALTHCARE LAB Device ID [id number] 11/14/2024 8:06 AM EDT HEALTHCARE LAB Specimen Type POC Capillary 11/14/2024 8:06 AM EDT HEALTHCARE LAB Blood Capillary blood specimen / Unknown 11/14/2024 8:05 AM EDT 11/14/2024 8:06 AM EDT Nathaly Nowak MD LAB POINT OF CARE TE ST DOCKED DEVICE UNSOLICITED RESULTS Final Result Performing Organization Address City/[facility] de Phone Number [facility] [address] [place] [address] * (ABNORMAL) POCT glucose meter (11/14/2024 3:53 [...] for testing. Comment 11/14/2024 3:[address] [facility] Discharge Specialist ID Nelda Gerber 11/15/19 3:55 AM EDT HEALTHCARE LAB Device ID [id number] 11/14/2024 3:[address] [facility] Specimen Type POC Capillary 11/14/2024 3:[address] [facility] Blood Capillary blood specimen / Unknown 11/14/2024 3:53 AM EDT 11/14/2024 3:55 AM EDT Nathaly Nowak MD LAB POINT OF CARE TE ST DOCKED DEVICE UNSOLICITED RESULTS Final Result Performing Organization Address City/[facility] Co de Phone Number [facility] [address] [place] [address] * (ABNORMAL) POCT glucose meter (11/13/2024 8:55 [...] Comment 11/13/2024 9:01 PM EDT HEALTHCARE LAB Discharge Specialist ID Nelda Gerber 11/14/19 9:01 PM EDT HEALTHCARE LAB Device ID [id number] 11/13/2024 9:01 PM EDT HEALTHCARE LAB Specimen Type POC Capillary 11/13/2024 9:01 PM EDT HEALTHCARE LAB Blood Capillary blood specimen / Unknown 11/13/2024 8:55 PM EDT 11/13/2024 9:01 PM EDT Nathaly Nowak MD LAB POINT OF CARE TE ST DOCKED DEVICE UNSOLICITED RESULTS Final Result Performing Organization Address City/State/[facility] Co de Phone Number HEALTHCARE LAB [address] [place] [address] * (ABNORMAL) POCT glucose meter (11/13/2024 5:16 PM EDT) [facility] POCT Glucose 149(H) 74 - 99 [...] Comment 11/13/2024 5:17 PM EDT HEALTHCARE LAB Discharge Specialist ID Estefani Sheth 11/13/2024 5:17 PM EDT HEALTHCARE LAB Device ID [id number] 11/13/2024 5:17 PM EDT HEALTHCARE LAB Specimen Type POC Capillary 11/13/2024 5:17 PM EDT HEALTHCARE LAB Blood Capillary blood specimen / Unknown 11/13/2024 5:16 PM EDT 11/13/2024 5:17 PM EDT Nathaly Nowak MD LAB POINT OF CARE TE ST DOCKED DEVICE UNSOLICITED RESULTS Final Result HEALTHCARE LAB [address] [place] [id number] * [place] NEGATIVE PRESSURE WOUND THERAPY DME </= 50 [...] Comment 11/13/2024 12:00 PM EDT [facility] Discharge Specialist ID Estefani Sheth 11/13/2024 12:00 PM EDT [facility]ARE LAB Device ID [id number] 11/13/2024 12:00 PM EDT [facility]ALTH[facility]ARE LAB Specimen Type POC Capillary 11/13/2024 12:00 PM EDT [facility] Blood Capillary blood specimen / Unknown 11/13/2024 11:58 AM EDT 11/13/2024 12:00 PM EDT Nathaly Nowak MD LAB POINT OF CARE TE ST DOCKED DEVICE UNSOLICITED RESULTS Final Result Performing Organization Address [facility] Co de Phone Number HEALTHCARE LAB [address] [place] [address] * (ABNORMAL) POCT glucose meter (11/13/2024 8:23 AM EDT) POCT Glucose 195(H) 74 - 99 mg/dL 11/13/2024 8:24 AM EDT [facility] Comment:Accuracy of a glucos e result [...] for testing. Comment 11/13/2024 8:[address] [facility] Discharge Specialist ID Estefani Sheth 11/13/2024 8:24 AM EDT [facility] Device ID [id number] 11/13/2024 8:[address] [facility] Specimen Type POC Capillary 11/13/2024 8:[address] [facility] Blood Capillary blood specimen / Unknown 11/13/2024 8:23 AM EDT 11/13/2024 8:24 AM EDT Result [facility] Nathaly Nowak MD LAB POINT OF CARE TE ST DOCKED DEVICE UNSOLICITED RESULTS Final Result Performing Organization Address City/[facility] Co de Phone Number [facility] [address] [place] [address] * (ABNORMAL) Phosphorus, Plasma (11/13/2024 6:37 AM EDT) Phosphorus, Plasma 1.7(L) 2.5 - 4.5 mg/dL 11/13/2024 7:16 AM EDT [facility] Blood Venous blood specimen / Unknown Venipuncture / Unknown 11/13/2024 6:37 AM EDT 11/13/2024 6:44 AM EDT Result [facility] Nathaly Nowak MD LAB BLOOD ORDERABLES Final Resu lt [facility] [address] [place] [address] * Magnesium, Plasma (11/13/2024 6:37 AM EDT) Pathologist [facility] Magnesium, Plasma 2.0 1.9 - 2.4 mg/dL 11/13/2024 7:16 AM EDT [facility] Blood Venous blood specimen / Unknown Venipuncture / Unknown 11/13/2024 6:37 AM EDT 11/13/2024 6:44 AM EDT us Nathaly Nowak MD LAB BLOOD ORDERABLES Final Resu lt Performing Organization Address City/[facility]/ZIP Co de Phone Number [facility] [address] [place] [address] * (ABNORMAL) CBC W/O Differential (11/13/2024 6:37 AM EDT) Pathologist [facility] WBC Count 11.72(H) 3.70 - 10.30 10*3/uL LAB HEMATOLOGY METHOD 11/13/2024 6:51 AM EDT [facility] RBC Count 2.88(L) 4.60 - 6.10 10*6/uL LAB HEMATOLOGY METHOD 11/13/2024 6:51 AM EDT [facility] HGB 8.5(L) 13.7 - 17.5 g/dL LAB HEMATOLOGY METHOD 11/13/2024 6:51 AM EDT [facility] HCT 26.4(L) 40.0 - 51.0 % LAB HEMATOLOGY METHOD 11/13/2024 6:51 AM EDT [facility] Platelet Count 398(H) 155 - 369 10*3/uL LAB HEMATOLOGY METHOD 11/13/2024 6:51 AM EDT [facility] MCV 92 79 - 98 fL LAB HEMATOLOGY METHOD 11/13/2024 6:51 AM EDT [facility] MCH 29.5 26.0 - 32.0 pg LAB HEMATOLOGY METHOD 11/13/2024 6:51 AM EDT [facility] MCHC 32.2 30.7 - 35.5 g/dL LAB HEMATOLOGY METHOD 11/13/2024 6:51 AM EDT [facility] RDW 13.6 11.5 - 14.5 % LAB HEMATOLOGY METHOD 11/13/2024 6:51 AM EDT [facility] MPV 8.9 8.8 - 12.5 fL LAB HEMATOLOGY METHOD 11/13/2024 6:51 AM EDT [facility] nRBC 0.0 <=0.0 per 100 WBCs LAB HEMATOLOGY METHOD 11/13/2024 6:51 AM EDT [facility] Blood Venous blood specimen / Unknown Venipuncture / Unknown 11/13/2024 6:37 AM EDT 11/13/2024 6:44 AM EDT us Nathaly Nowak MD LAB BLOOD ORDERABLES Final Resu lt [facility] [address] [place] [address] * (ABNORMAL) Basic Metabolic Panel, Plasma (11/13/2024 6:37 AM EDT) Glucose, Plasma 200(H) 74 - 99 mg/dL 11/13/2024 7:16 AM EDT [facility] BUN, Plasma 10 8 - 23 mg/dL 11/13/2024 7:16 AM EDT [facility] Creatinine, Plasma 0.68(L) 0.70 - 1.20 mg/dL 11/13/2024 7:16 AM EDT [facility] BUN/Creatinine Ratio 15 11/13/2024 7:16 AM EDT [facility] Sodium, Plasma 135(L) 136 - 145 mmol/L 11/13/2024 7:16 AM EDT [facility] Potassium, Plasma 3.9 3.6 - 4.9 mmol/L 11/13/2024 7:16 AM EDT [facility] Chloride, Plasma 107 97 - 107 mmol/L 11/13/2024 7:16 AM EDT [facility] CO2, Plasma 21(L) 22 - 29 mmol/L 11/13/2024 7:16 AM EDT [facility] Anion Gap 7 6 - 16 mmol/L 11/13/2024 7:16 AM EDT [facility] Total Calcium, Plasma 8.1(L) 8.9 - 10.2 mg/dL 11/13/2024 7:16 AM EDT [facility] eGFRcr 103.2 mL/min/1.7 3m*2 11/13/2024 7:16 AM EDT [facility] Comment:Reported eGFRcr in m L/min/1.73m2 is based the CKD-EPI 2020 equation that does not use a race coefficient. Blood Venous blood specimen / Unknown Venipuncture / Unknown 11/13/2024 6:37 AM EDT 11/13/2024 6:44 AM EDT us Nathaly Nowak MD LAB BLOOD ORDERABLES Final Resu lt Performing Organization Address City/[facility]/ZIP Co de Phone Number [facility] [address] [place] [address] * (ABNORMAL) POCT glucose meter (11/12/2024 8:27 PM EDT) [facility] POCT Glucose 175(H) 74 - 99 mg/dL [...] Comment 11/12/2024 8:29 PM EDT [facility]ALTHCARE LAB Discharge Specialist ID Nelda Gerber 11/13/19 8:29 PM EDT [facility]ALTH[facility]ARE LAB Device ID [id number] 11/12/2024 8:29 PM EDT [facility] Specimen Type POC Capillary 11/12/2024 8:29 PM EDT [facility] Blood Capillary blood specimen / Unknown 11/12/2024 8:27 PM EDT 11/12/2024 8:29 PM EDT us Nathaly Nowak MD LAB POINT OF CARE TE ST DOCKED DEVICE UNSOLICITED RESULTS Final Result [facility] [address] [place] [address] * (ABNORMAL) POCT glucose meter (11/12/2024 5:08 PM EDT) [facility] POCT Glucose 157(H) 74 - 99 [...] 11/12/2024 5:10 PM EDT [facility] Discharge Specialist ID Wade Feliciano 5:10 PM EDT [facility] Device ID [id number] 11/12/2024 5:10 PM EDT [facility] Specimen Type POC Capillary 11/12/2024 5:10 PM EDT [facility] Blood Capillary blood specimen / Unknown 11/12/2024 5:08 PM EDT 11/12/2024 5:10 PM EDT Nathaly Nowak MD LAB POINT OF CARE TE ST DOCKED DEVICE UNSOLICITED RESULTS Final Result [facility] [address] [place] [address] * (ABNORMAL) POCT glucose meter (11/12/2024 12:36 PM EDT) [facility] POCT Glucose 224(H) 74 - 99 [...] 11/12/2024 12:38 PM EDT [facility] Discharge Specialist ID Wade Feliciano 12:38 PM EDT [facility] Device ID [id number] 11/12/2024 12:[address] [facility] Specimen Type POC Capillary 11/12/2024 12:[address] [facility] Blood Capillary blood specimen / Unknown 11/12/2024 12:36 PM EDT 11/12/2024 12:38 PM EDT Nathaly Nowak MD LAB POINT OF CARE TE ST DOCKED DEVICE UNSOLICITED RESULTS Final Result Performing Organization Address City/[facility]/ZIP Co de Phone Number [facility] [address] [place] [address] * Clostridiodes (Clostridium) difficile PCR (11/12/2024 9:50 AM EDT) C difficile PCR toxin B gene DNA Result Not Detected Not Detected 11/12/2024 11:54 AM EDT [facility] Stool Rectum structure / Unknown Non-blood Collection / Unknown 11/12/2024 9:50 AM EDT 11/12/2024 10:04 AM EDT Narrative [facility] - 11/12/2024 11:54 AM [...] ATIYA FRITZ Final Result Performing Organization Address City/[facility]/ZIP Co de Phone Number [facility] [address] [place] [address] * Comprehensive GI Panel by PCR (11/12/2024 9:50 AM EDT) Campylobacter PCR Result Not Detected Not Detected 11/12/2024 2:47 PM EDT [facility] Plesiomonas shigelloides PCR Result Not Detected Not Detected 11/12/2024 2:47 PM EDT [facility] Salmonella PCR Result Not Detected Not Detected 11/12/2024 2:47 PM EDT [facility] Vibrio species PCR Result Not Detected Not Detected 11/12/2024 2:47 PM EDT [facility] Vibrio cholerae PCR Result Not Detected Not Detected 11/12/2024 2:47 PM EDT [facility] Yersinia enterocolitica PCR Result Not Detected Not Detected 11/12/2024 2:47 PM EDT [facility] Enteroaggregative E. coli (EAEC) PCR Result Not Detected Not Detected 11/12/2024 2:47 PM EDT [facility] Enteropathogenic E. coli (EPEC) PCR Result Not Detected Not Detected 11/12/2024 2:47 PM EDT [facility] Enterotoxigenic E. coli (ETEC) lt/st PCR Result Not Detected Not Detected 11/12/2024 2:47 PM EDT [facility] Shiga-like Toxin-Producing E.coli (STEC) stx1/stx2 PCR Resu Not Detected Not Detected 11/12/2024 2:47 PM EDT [facility] E coli 0157 PCR Result Not Detected Not Detected 11/12/2024 2:47 PM EDT [facility] Shigella/Enteroinvas tam E. coli (EIEC) PCR Result Not Detected Not Detected 11/12/2024 2:47 PM EDT [facility] Cryptosporidium PCR Result Not Detected Not Detected 11/12/2024 2:47 PM EDT [facility] Cyclospora cayetanensis PCR Result Not Detected Not Detected 11/12/2024 2:47 PM EDT [facility] Entamoeba histolytica PCR Result Not Detected Not Detected 11/12/2024 2:47 PM EDT [facility] Giardia duodenalis (aka Giardia lamblia) PCR Result Not Detected Not Detected 11/12/2024 2:47 PM EDT [facility] Adenovirus F 40/41 PCR Result Not Detected Not Detected 11/12/2024 2:47 PM EDT [facility] Astrovirus PCR Result Not Detected Not Detected 11/12/2024 2:47 PM EDT [facility] Norovirus GI/GII PCR Result Not Detected Not Detected 11/12/2024 2:47 PM EDT [facility] Rotavirus A PCR Result Not Detected Not Detected 11/12/2024 2:47 PM EDT [facility] Sapovirus PCR Result Not Detected Not Detected 11/12/2024 2:47 PM EDT [facility] Stool Rectum structure / Unknown Non-blood Collection / Unknown 11/12/2024 9:50 AM EDT 11/12/2024 10:04 AM EDT Narrative [facility] - 11/12/2024 2:47 PM [...] MICROBIOLOGY [facility] Final Result [facility] [address] [place] [address] * C-reactive protein (11/12/2024 9:48 AM EDT) CRP, Plasma <3.0 <=8.0 mg/L 11/12/2024 10:28 AM EDT [facility] Blood Venous blood specimen / Unknown Venipuncture / Unknown 11/12/2024 9:48 AM EDT 11/12/2024 9:59 AM EDT Narrative [facility] - 11/12/2024 10:28 AM EDT This CRP test is appropriate for assessment of infection, systemic inflammation and/or tissue injury. To assess cardiovascular disease risk order high sensitivity CRP (CRPH). us Nathaly Nowak MD LAB BLOOD ORDERABLES Final Resu lt Performing Organization Address City/[facility]/ZIP Co de Phone Number [facility] [address] [place] [address] * (ABNORMAL) POCT glucose meter (11/12/2024 8:20 AM EDT) [facility] POCT Glucose 138(H) 74 - 99 [...] Comment 11/12/2024 8:21 AM EDT [facility]ALTHCARE LAB Discharge Specialist ID Wade Feliciano 8:21 AM EDT [facility] Device ID [id number] 11/12/2024 8:[address] [facility] Specimen Type POC Capillary 11/12/2024 8:[address] [facility] Blood Capillary blood specimen / Unknown 11/12/2024 8:20 AM EDT 11/12/2024 8:21 AM EDT Nathaly Nowak MD LAB POINT OF CARE TE ST DOCKED DEVICE UNSOLICITED RESULTS Final Result Performing Organization Address [facility] Co de Phone Number [facility]ARE [facility] [address] [place] [address] * (ABNORMAL) POCT glucose meter (11/11/2024 8:18 PM EDT) [facility] POCT Glucose 248(H) 74 - 99 [...] Comment 11/11/2024 8:20 PM EDT [facility] Discharge Specialist ID Nelda Gerber 11/12/19 8:20 PM EDT HEALTH[facility]ARE LAB Device ID [id number] 11/11/2024 8:20 PM EDT [facility] Specimen Type POC Capillary 11/11/2024 8:20 PM EDT [facility] Blood Capillary blood specimen / Unknown 11/11/2024 8:18 PM EDT 11/11/2024 8:20 PM EDT Nathaly Nowak MD LAB POINT OF CARE TE ST DOCKED DEVICE UNSOLICITED RESULTS Final Result Performing Organization Address City/[facility]/ZIP Co de Phone Number [facility] [address] [place] [address] * (ABNORMAL) POCT glucose meter (11/11/2024 5:59 [...] 11/11/2024 6:01 PM EDT [facility] Discharge Specialist ID Wade Feliciano 6:01 PM EDT [facility]ARE LAB Device ID [id number] 11/11/2024 6:01 PM EDT [facility] Specimen Type POC Capillary 11/11/2024 6:01 PM EDT [facility] Blood Capillary blood specimen / Unknown 11/11/2024 5:59 PM EDT 11/11/2024 6:01 PM EDT Nathaly Nowak MD LAB POINT OF CARE TE ST DOCKED DEVICE UNSOLICITED RESULTS Final Result Performing Organization Address City/[facility]/ZIP Co de Phone Number [facility] [address] [place] [address] * POCT glucose meter (11/11/2024 5:20 PM [...] Comment 11/11/2024 5:22 PM EDT [facility] Discharge Specialist ID Wade Feliciano 5:22 PM EDT [facility] LAB Device ID [id number] 11/11/2024 5:22 PM EDT [facility] Specimen Type POC Capillary 11/11/2024 5:22 PM EDT [facility] Blood Capillary blood specimen / Unknown 11/11/2024 5:20 PM EDT 11/11/2024 5:22 PM EDT Nathaly Nowak MD LAB POINT OF CARE TE ST DOCKED DEVICE UNSOLICITED RESULTS Final Result Performing Organization Address City/State/[facility] Co de Phone Number [facility]ARE LAB [address] [place] [address] * [place] NEGATIVE PRESSURE WOUND THERAPY DME >50 SQ [...] glucose meter (11/11/2024 12:08 PM EDT) Pathologist [facility] POCT Glucose 226(H) 74 - 99 mg/dL [...] Comment 11/11/2024 12:10 PM EDT [facility]ALTH[facility]ARE [facility] Discharge Specialist ID Wade Feliciano 12:10 PM EDT [facility] Device ID [id number] 11/11/2024 12:10 PM EDT [facility] Specimen Type POC Capillary 11/11/2024 12:10 PM EDT [facility] Blood Capillary blood specimen / Unknown 11/11/2024 12:08 PM EDT 11/11/2024 12:10 PM EDT us Nathaly Nowak MD LAB POINT OF CARE TE ST DOCKED DEVICE UNSOLICITED RESULTS Final Result Performing Organization Address City/State/[facility] Co de Phone Number [facility] [address] [place] [address] * (ABNORMAL) POCT glucose meter (11/11/2024 9:08 AM EDT) Pathologist [facility] POCT Glucose 162(H) 74 - 99 mg/dL [...] 11/11/2024 9:09 AM EDT [facility] Discharge Specialist ID Wade Feliciano 9:09 AM EDT [facility] Device ID [id number] 11/11/2024 9:09 AM EDT [facility]ALTH[facility]ARE LAB Specimen Type POC Capillary 11/11/2024 9:[address] [facility] Blood Capillary blood specimen / Unknown 11/11/2024 9:08 AM EDT 11/11/2024 9:09 AM EDT Nathaly Nowak MD LAB POINT OF CARE TE ST DOCKED DEVICE UNSOLICITED RESULTS Final Result Performing Organization Address City/[facility]/ZIP Co de Phone Number [facility] [address] [place] [address] * POCT glucose meter (11/11/2024 8:27 AM EDT) POCT Glucose 87 74 - 99 mg/dL 11/11/2024 8:28 AM EDT [facility] Comment:Accuracy of a glucos e result [...] for testing. Comment 11/11/2024 8:28 AM EDT [facility] Discharge Specialist ID Wade Feliciano 8:28 AM EDT [facility] Device ID [id number] 11/11/2024 8:[address] [facility] Specimen Type POC Capillary 11/11/2024 8:[address] [facility] Blood Capillary blood specimen / Unknown 11/11/2024 8:27 AM EDT 11/11/2024 8:28 AM EDT Nathaly Nowak MD LAB POINT OF CARE TE ST DOCKED DEVICE UNSOLICITED RESULTS Final Result Performing Organization Address City/[facility]/ZIP Co de Phone Number [facility] [address] [place] [address] * (ABNORMAL) Basic Metabolic Panel, Plasma (11/11/2024 1:12 AM EDT) Glucose, Plasma 122(H) 74 - 99 mg/dL 11/11/2024 1:12 AM EDT [facility] BUN, Plasma 10 8 - 23 mg/dL 11/11/2024 1:12 AM EDT [facility] Creatinine, Plasma 0.82 0.70 - 1.20 mg/dL 11/11/2024 1:12 AM EDT [facility] BUN/Creatinine Ratio 12 11/11/2024 1:12 AM EDT [facility] Sodium, Plasma 137 136 - 145 mmol/L 11/11/2024 1:12 AM EDT [facility] Potassium, Plasma 3.9 3.6 - 4.9 mmol/L 11/11/2024 1:12 AM EDT [facility] Chloride, Plasma 110(H) 97 - 107 mmol/L 11/11/2024 1:12 AM EDT [facility] CO2, Plasma 20(L) 22 - 29 mmol/L 11/11/2024 1:12 AM EDT [facility] Anion Gap 7 6 - 16 mmol/L 11/11/2024 1:12 AM EDT [facility] Total Calcium, Plasma 7.6(L) 8.9 - 10.2 mg/dL 11/11/2024 1:12 AM EDT [facility] eGFRcr 97.5 mL/min/1.7 3m*2 11/11/2024 1:12 AM EDT [facility] Comment:Reported eGFRcr in m L/min/1.73m2 is based the CKD-EPI 2020 equation that does not use a race coefficient. Blood Venous blood specimen / Unknown 11/11/2024 12:42 AM EDT us Nathaly Nowak MD LAB BLOOD ORDERABLES Final Resu lt [facility] [address] [place] [address] * (ABNORMAL) CBC W/O Differential (11/11/2024 12:56 AM EDT) WBC Count 11.83(H) 3.70 - 10.30 10*3/uL LAB HEMATOLOGY METHOD 11/11/2024 12:56 AM EDT [facility] RBC Count 2.97(L) 4.60 - 6.10 10*6/uL LAB HEMATOLOGY METHOD 11/11/2024 12:56 AM EDT [facility] HGB 8.9(L) 13.7 - 17.5 g/dL LAB HEMATOLOGY METHOD 11/11/2024 12:56 AM EDT [facility] HCT 27.2(L) 40.0 - 51.0 % LAB HEMATOLOGY METHOD 11/11/2024 12:56 AM EDT [facility] Platelet Count 444(H) 155 - 369 10*3/uL LAB HEMATOLOGY METHOD 11/11/2024 12:56 AM EDT [facility] MCV 92 79 - 98 fL LAB HEMATOLOGY METHOD 11/11/2024 12:56 AM EDT [facility] MCH 30.0 26.0 - 32.0 pg LAB HEMATOLOGY METHOD 11/11/2024 12:56 AM EDT [facility] MCHC 32.7 30.7 - 35.5 g/dL LAB HEMATOLOGY METHOD 11/11/2024 12:56 AM EDT [facility] RDW 13.3 11.5 - 14.5 % LAB HEMATOLOGY METHOD 11/11/2024 12:56 AM EDT [facility] MPV 9.0 8.8 - 12.5 fL LAB HEMATOLOGY METHOD 11/11/2024 12:56 AM EDT [facility] nRBC 0.0 <=0.0 per 100 WBCs LAB HEMATOLOGY METHOD 11/11/2024 12:56 AM EDT [facility] Blood Venous blood specimen / Unknown 11/11/2024 12:42 AM EDT us Nathaly Nowak MD LAB BLOOD ORDERABLES Final Resu lt [facility] [address] [place] [address] * (ABNORMAL) POCT glucose meter (11/10/2024 8:25 PM EDT) Pathologist [facility] POCT Glucose 144(H) 74 - 99 mg/dL 11/10/2024 8:[address] [facility] Comment:Accuracy of a glucos e [...] Comment 11/10/2024 8:28 PM EDT [facility]ALTHCARE LAB Discharge Specialist ID Nelda Gerber 11/11/19 8:28 PM EDT [facility] Device ID [id number] 11/10/2024 8:28 PM EDT [facility] Specimen Type POC Capillary 11/10/2024 8:28 PM EDT [facility] Blood Capillary blood specimen / Unknown 11/10/2024 8:25 PM EDT 11/10/2024 8:28 PM EDT Nathaly Nowak MD LAB POINT OF CARE TE ST DOCKED DEVICE UNSOLICITED RESULTS Final Result Performing Organization Address City/[facility] Co de Phone Number [facility] [address] [place] [address] * (ABNORMAL) POCT glucose meter (11/10/2024 4:45 PM EDT) [facility] POCT Glucose 155(H) 74 - 99 mg/dL [...] Comment 11/10/2024 4:47 PM EDT [facility]ALTH[facility]ARE LAB Discharge Specialist ID Esperanza Parks 11/10/2024 4:47 PM EDT [facility]ALTH[facility]ARE LAB Device ID [id number] 11/10/2024 4:47 PM EDT [facility] Specimen Type POC Capillary 11/10/2024 4:47 PM EDT [facility] Blood Capillary blood specimen / Unknown 11/10/2024 4:45 PM EDT 11/10/2024 4:47 PM EDT us Nathaly Nowak MD LAB POINT OF CARE TE ST DOCKED DEVICE UNSOLICITED RESULTS Final Result [facility] [address] [place] [address] * (ABNORMAL) POCT glucose meter (11/10/2024 12:13 PM EDT) Pathologist [facility] POCT Glucose 131(H) 74 - 99 mg/dL [...] Comment 11/10/2024 12:14 PM EDT [facility]ALTHCARE LAB Discharge Specialist ID Esperanza Parks 11/10/2024 12:14 PM EDT HEALTHCARE LAB Device ID [id number] 11/10/2024 12:14 PM EDT [facility]ALTH[facility]ARE LAB Specimen Type POC Capillary 11/10/2024 12:[address] [facility] Blood Capillary blood specimen / Unknown 11/10/2024 12:13 PM EDT 11/10/2024 12:14 PM EDT Nathaly Nowak MD LAB POINT OF CARE TE ST DOCKED DEVICE UNSOLICITED RESULTS Final Result Performing Organization Address City/[facility]/ZIP Co de Phone Number [facility] [address] [place] [address] * Vancomycin, Peak, Plasma Please draw ~2 hours after 0800 dose of vancomycin finishes infusing. Consider obtaining level via peripheral stick. If peripheral stick is not feasible, please ensure that line is flushed well prior to drawing level. Than... (11/10/2024 10:56 AM EDT) Pathologist [facility] Vancomycin, Peak, Plasma 23.8 20.0 - 40.0 ug/mL 11/10/2024 11:25 AM EDT [facility] Blood Venous blood specimen / Unknown Venipuncture / Unknown 11/10/2024 10:56 AM EDT 11/10/2024 11:00 AM EDT Narrative [facility] - 11/10/2024 11:25 AM EDT Therapeutic Peak level: 20-40ug/mL Supra-therapeutic Peak level: >40 ug/mL us Abigail Seay MD LAB BLOOD ORDERABLES Final Res ult Performing Organization Address [facility] Co de Phone Number [facility] [address] [place] [address] * (ABNORMAL) POCT glucose meter (11/10/2024 8:03 [...] Comment 11/10/2024 8:04 AM EDT HEALTHCARE LAB Discharge Specialist ID Esperanza Parks 11/10/2024 8:04 AM EDT HEALTHCARE LAB Device ID [id number] 11/10/2024 8:04 AM EDT [facility]ALTH[facility]ARE LAB Specimen Type POC Capillary 11/10/2024 8:04 AM EDT [facility] Blood Capillary blood specimen / Unknown 11/10/2024 8:03 AM EDT 11/10/2024 8:04 AM EDT us Nathaly Nowak MD LAB POINT OF CARE TE ST DOCKED DEVICE UNSOLICITED RESULTS Final Result Performing Organization Address [facility] Co de Phone Number [facility] [address] [place] [address] * Vancomycin, Trough, Plasma Please draw ~30 minutes prior to dose due at 0800 on 11/10. Please do NOThold dose awaiting level to return. Consider obtaining level via peripheral stick. If peripheral stick is not feasible, please ensure that line is... (11/10/2024 7:27 AM EDT) Vancomycin, Trough, Plasma 16.2 10.0 - 20.0 ug/mL 11/10/2024 8:24 AM EDT [facility] Blood Venous blood specimen / Unknown Venipuncture / Unknown 11/10/2024 7:27 AM EDT 11/10/2024 7:51 AM EDT [facility] - 11/10/2024 8:24 AM EDT Therapeutic Trough level: 10-20ug/mL Supra-therapeutic Trough level: >20 ug/mL us Abigail Seay MD LAB BLOOD ORDERABLES Final Res ult [facility] [address] [place] [address] * (ABNORMAL) CBC and Differential (11/10/2024 12:31 AM EDT) WBC Count 10.80(H) 3.70 - 10.30 10*3/uL LAB HEMATOLOGY METHOD 11/10/2024 12:53 AM EDT [facility] RBC Count 3.06(L) 4.60 - 6.10 10*6/uL LAB HEMATOLOGY METHOD 11/10/2024 12:53 AM EDT [facility] HGB 9.1(L) 13.7 - 17.5 g/dL LAB HEMATOLOGY METHOD 11/10/2024 12:53 AM EDT [facility] HCT 28.0(L) 40.0 - 51.0 % LAB HEMATOLOGY METHOD 11/10/2024 12:53 AM EDT [facility] Platelet Count 501(H) 155 - 369 10*3/uL LAB HEMATOLOGY METHOD 11/10/2024 12:53 AM EDT [facility] MCV 92 79 - 98 fL LAB HEMATOLOGY METHOD 11/10/2024 12:53 AM EDT [facility] MCH 29.7 26.0 - 32.0 pg LAB HEMATOLOGY METHOD 11/10/2024 12:53 AM EDT [facility] MCHC 32.5 30.7 - 35.5 g/dL LAB HEMATOLOGY METHOD 11/10/2024 12:53 AM EDT [facility] RDW 13.2 11.5 - 14.5 % LAB HEMATOLOGY METHOD 11/10/2024 12:53 AM EDT [facility] MPV 8.8 8.8 - 12.5 fL LAB HEMATOLOGY METHOD 11/10/2024 12:53 AM EDT [facility] nRBC 0.0 <=0.0 per 100 WBCs LAB HEMATOLOGY METHOD 11/10/2024 12:53 AM EDT [facility] Differential Type Automated LAB HEMATOLOGY METHOD 11/10/2024 12:53 AM EDT [facility] Neutrophils % 77 % LAB HEMATOLOGY METHOD 11/10/2024 12:53 AM EDT [facility] Lymphocytes % 13 % LAB HEMATOLOGY METHOD 11/10/2024 12:53 AM EDT [facility] Monocytes % 8 % LAB HEMATOLOGY METHOD 11/10/2024 12:53 AM EDT [facility] Eosinophils % 1 % LAB HEMATOLOGY METHOD 11/10/2024 12:53 AM EDT [facility] Basophils % 0 % LAB HEMATOLOGY METHOD 11/10/2024 12:53 AM EDT [facility] Immature Granulocytes % 1 % LAB HEMATOLOGY METHOD 11/10/2024 12:53 AM EDT [facility] Neutrophils Absolute 8.32(H) 1.60 - 6.10 10*3/uL LAB HEMATOLOGY METHOD 11/10/2024 12:53 AM EDT [facility] Lymphocytes Absolute 1.40 1.20 - 3.90 10*3/uL LAB HEMATOLOGY METHOD 11/10/2024 12:53 AM EDT [facility] Monocytes Absolute 0.89 0.30 - 0.90 10*3/uL LAB HEMATOLOGY METHOD 11/10/2024 12:53 AM EDT [facility] Eosinophils Absolute 0.09 0.00 - 0.50 10*3/uL LAB HEMATOLOGY METHOD 11/10/2024 12:53 AM EDT [facility] Basophils Absolute 0.04 0.00 - 0.10 10*3/uL LAB HEMATOLOGY METHOD 11/10/2024 12:53 AM EDT [facility] Immature Granulocytes Absolute 0.06 0.00 - 0.06 10*3/uL LAB HEMATOLOGY METHOD 11/10/2024 12:53 AM EDT [facility] Blood Venous blood specimen / Unknown Venipuncture / Unknown 11/10/2024 12:31 AM EDT 11/10/2024 12:37 AM EDT Narrative [facility] - 11/10/2024 12:53 AM EDT Therapeutic decision making should be based on absolute values, rather than percentages. us Nathaly Nowak MD LAB BLOOD ORDERABLES Final Resu lt [facility] [address] [place] [address] * (ABNORMAL) Comprehensive Metabolic Panel, Plasma (11/10/2024 12:31 AM EDT) Glucose, Plasma 185(H) 74 - 99 mg/dL 11/10/2024 1:05 AM EDT [facility] BUN, Plasma 9 8 - 23 mg/dL 11/10/2024 1:05 AM EDT [facility] Creatinine, Plasma 0.72 0.70 - 1.20 mg/dL 11/10/2024 1:05 AM EDT [facility] BUN/Creatinine Ratio 13 11/10/2024 1:05 AM EDT [facility] Sodium, Plasma 135(L) 136 - 145 mmol/L 11/10/2024 1:05 AM EDT [facility] Potassium, Plasma 4.0 3.6 - 4.9 mmol/L 11/10/2024 1:05 AM EDT [facility] Chloride, Plasma 106 97 - 107 mmol/L 11/10/2024 1:05 AM EDT [facility] CO2, Plasma 19(L) 22 - 29 mmol/L 11/10/2024 1:05 AM EDT [facility] Anion Gap 10 6 - 16 mmol/L 11/10/2024 1:05 AM EDT [facility] Total Calcium, Plasma 7.8(L) 8.9 - 10.2 mg/dL 11/10/2024 1:05 AM EDT [facility] Total Protein 5.6(L) 6.3 - 7.9 g/dL 11/10/2024 1:05 AM EDT [facility] Albumin, Plasma 3.1(L) 3.5 - 5.2 g/dL 11/10/2024 1:05 AM EDT [facility] AST, Plasma 33 10 - 50 U/L 11/10/2024 1:05 AM EDT [facility] ALT, Plasma 25 10 - 50 U/L 11/10/2024 1:05 AM EDT [facility] Alkaline Phosphatase, Plasma 108 40 - 115 U/L 11/10/2024 1:05 AM EDT [facility] Total Bilirubin, Plasma <0.2(L) 0.2 - 1.1 mg/dL 11/10/2024 1:05 AM EDT [facility] eGFRcr 101.4 mL/min/1.7 3m*2 11/10/2024 1:05 AM EDT [facility] Comment:Reported eGFRcr in m L/min/1.73m2 is based the CKD-EPI 2020 equation that does not use a race coefficient. Blood Venous blood specimen / Unknown Venipuncture / Unknown 11/10/2024 12:31 AM EDT 11/10/2024 12:37 AM EDT us Nathaly Nowak MD LAB BLOOD ORDERABLES Final Resu lt [facility] [address] [place] [address] * (ABNORMAL) POCT glucose meter (11/09/2024 8:04 [...] Comment 11/09/2024 8:06 PM EDT [facility] Discharge Specialist ID Maximiliano Hansen II 11/09/2024 8:06 PM EDT [facility] LAB Device ID [id number] 11/09/2024 8:06 PM EDT [facility] Specimen Type POC Capillary 11/09/2024 8:06 PM EDT [facility] Blood Capillary blood specimen / Unknown 11/09/2024 8:04 PM EDT 11/09/2024 8:06 PM EDT Nathaly Nowak MD LAB POINT OF CARE TE ST DOCKED DEVICE UNSOLICITED RESULTS Final Result Performing Organization Address [facility] de Phone Number [facility] [address] [place] [address] * (ABNORMAL) POCT glucose meter (11/09/2024 4:36 PM EDT) [facility] POCT Glucose 166(H) 74 - 99 mg/dL [...] Comment 11/09/2024 4:38 PM EDT [facility] Discharge Specialist ID Kristian Sosa 11/09/2024 4:38 PM EDT [facility] LAB Device ID [id number] 11/09/2024 4:38 PM EDT [facility] Specimen Type POC Capillary 11/09/2024 4:38 PM EDT [facility] Blood Capillary blood specimen / Unknown 11/09/2024 4:36 PM EDT 11/09/2024 4:38 PM EDT Nathaly Nowak MD LAB POINT OF CARE TE ST DOCKED DEVICE UNSOLICITED RESULTS Final Result Performing Organization Address City/[facility] Co de Phone Number [facility] [address] [place] [address] * PICC SINGLE LUMEN (SM[employer] LINK) (11/09/2024 1:11 PM EDT) Narrative Estefani Barraza RN - 11/09/2024 1:11 PM EDT Estefani Barraza RN 11/09/2024 1:12 PM Insert PICC line Date/Time: 11/09/2024 1:11 PM Performed by: Estefani Barraza RN Authorized by: Nathaly Nowak MD [place] Protocol: Verbal consent obtained?: Yes Written consent [...] selection rationale: Left pacemaker Catheter Lot #: [id number] Catheter shear grinder operator: Intrakr Catheter placed: Single lumen Catheter size: 4 Fr Catheter trimmed length: 42 Catheter threaded length: 42 Vein placed in: SVC Catheter cm indwellin Catheter cm outside: 0 Placement confirmed by: Easyaula 3CG technology Pre-procedure: Landmarks identified Ultrasound guidance: [...] - 99 mg/dL 11/09/2024 11:51 AM EDT [facility] Comment:Accuracy of a glucos e result [...] Comment 11/09/2024 11:51 AM EDT [facility] LAB Discharge Specialist Kristian Greco 11/09/2024 11:51 AM EDT [facility] LAB Device ID [id number] 11/09/2024 11:51 AM EDT [facility] Specimen Type POC Capillary 11/09/2024 11:51 AM EDT [facility] Blood Capillary blood specimen / Unknown 11/09/2024 11:50 AM EDT 11/09/2024 11:51 AM EDT Nathaly Nowak MD LAB POINT OF CARE TE ST DOCKED DEVICE UNSOLICITED RESULTS Final Result Performing Organization Address City/[facility]/ZIP Co de Phone Number [facility] [address] [place] [address] * (ABNORMAL) POCT glucose meter (11/09/2024 8:14 [...] Comment 11/09/2024 8:15 AM EDT [facility] Discharge Specialist Kristian Greco 11/09/2024 8:15 AM EDT [facility] LAB Device ID [id number] 11/09/2024 8:15 AM EDT [facility] Specimen Type POC Capillary 11/09/2024 8:15 AM EDT [facility] Blood Capillary blood specimen / Unknown 11/09/2024 8:14 AM EDT 11/09/2024 8:15 AM EDT Nathaly Nowak MD LAB POINT OF CARE TE ST DOCKED DEVICE UNSOLICITED RESULTS Final Result Performing Organization Address City/[facility]/ZIP Co de Phone Number [facility] [address] [place] [address] * (ABNORMAL) CBC and Differential (11/09/2024 4:15 AM EDT) WBC Count 10.27 3.70 - 10.30 10*3/uL LAB HEMATOLOGY METHOD 11/09/2024 4:26 AM EDT [facility] RBC Count 3.14(L) 4.60 - 6.10 10*6/uL LAB HEMATOLOGY METHOD 11/09/2024 4:26 AM EDT [facility] HGB 9.2(L) 13.7 - 17.5 g/dL LAB HEMATOLOGY METHOD 11/09/2024 4:26 AM EDT [facility] HCT 28.3(L) 40.0 - 51.0 % LAB HEMATOLOGY METHOD 11/09/2024 4:26 AM EDT [facility] Platelet Count 468(H) 155 - 369 10*3/uL LAB HEMATOLOGY METHOD 11/09/2024 4:26 AM EDT [facility] MCV 90 79 - 98 fL LAB HEMATOLOGY METHOD 11/09/2024 4:26 AM EDT [facility] MCH 29.3 26.0 - 32.0 pg LAB HEMATOLOGY METHOD 11/09/2024 4:26 AM EDT [facility] MCHC 32.5 30.7 - 35.5 g/dL LAB HEMATOLOGY METHOD 11/09/2024 4:26 AM EDT [facility] RDW 13.1 11.5 - 14.5 % LAB HEMATOLOGY METHOD 11/09/2024 4:26 AM EDT [facility] MPV 8.7(L) 8.8 - 12.5 fL LAB HEMATOLOGY METHOD 11/09/2024 4:26 AM EDT [facility] nRBC 0.0 <=0.0 per 100 WBCs LAB HEMATOLOGY METHOD 11/09/2024 4:26 AM EDT [facility] Differential Type Automated LAB HEMATOLOGY METHOD 11/09/2024 4:26 AM EDT [facility] Neutrophils % 77 % LAB HEMATOLOGY METHOD 11/09/2024 4:26 AM EDT [facility] Lymphocytes % 13 % LAB HEMATOLOGY METHOD 11/09/2024 4:26 AM EDT [facility] Monocytes % 8 % LAB HEMATOLOGY METHOD 11/09/2024 4:26 AM EDT [facility] Eosinophils % 1 % LAB HEMATOLOGY METHOD 11/09/2024 4:26 AM EDT [facility] Basophils % 0 % LAB HEMATOLOGY METHOD 11/09/2024 4:26 AM EDT [facility] Immature Granulocytes % 1 % LAB HEMATOLOGY METHOD 11/09/2024 4:26 AM EDT [facility] Neutrophils Absolute 7.97(H) 1.60 - 6.10 10*3/uL LAB HEMATOLOGY METHOD 11/09/2024 4:26 AM EDT [facility] Lymphocytes Absolute 1.32 1.20 - 3.90 10*3/uL LAB HEMATOLOGY METHOD 11/09/2024 4:26 AM EDT [facility] Monocytes Absolute 0.83 0.30 - 0.90 10*3/uL LAB HEMATOLOGY METHOD 11/09/2024 4:26 AM EDT [facility] Eosinophils Absolute 0.07 0.00 - 0.50 10*3/uL LAB HEMATOLOGY METHOD 11/09/2024 4:26 AM EDT [facility] Basophils Absolute 0.03 0.00 - 0.10 10*3/uL LAB HEMATOLOGY METHOD 11/09/2024 4:26 AM EDT [facility] Immature Granulocytes Absolute 0.05 0.00 - 0.06 10*3/uL LAB HEMATOLOGY METHOD 11/09/2024 4:26 AM EDT [facility] Blood Venous blood specimen / Unknown Venipuncture / Unknown 11/09/2024 4:15 AM EDT 11/09/2024 4:18 AM EDT Narrative [facility] - 11/09/2024 4:26 AM EDT Therapeutic decision making should be based on absolute values, rather than percentages. us Nathaly Nowak MD LAB BLOOD ORDERABLES Final Resu lt [facility] [address] [place] [address] * (ABNORMAL) Comprehensive Metabolic Panel, Plasma (11/09/2024 4:15 AM EDT) Glucose, Plasma 171(H) 74 - 99 mg/dL 11/09/2024 4:47 AM EDT [facility] BUN, Plasma 9 8 - 23 mg/dL 11/09/2024 4:47 AM EDT [facility] Creatinine, Plasma 0.67(L) 0.70 - 1.20 mg/dL 11/09/2024 4:47 AM EDT [facility] BUN/Creatinine Ratio 13 11/09/2024 4:47 AM EDT [facility] Sodium, Plasma 134(L) 136 - 145 mmol/L 11/09/2024 4:47 AM EDT [facility] Potassium, Plasma 4.1 3.6 - 4.9 mmol/L 11/09/2024 4:47 AM EDT [facility] Chloride, Plasma 104 97 - 107 mmol/L 11/09/2024 4:47 AM EDT [facility] CO2, Plasma 21(L) 22 - 29 mmol/L 11/09/2024 4:47 AM EDT [facility] Anion Gap 9 6 - 16 mmol/L 11/09/2024 4:47 AM EDT [facility] Total Calcium, Plasma 8.4(L) 8.9 - 10.2 mg/dL 11/09/2024 4:47 AM EDT [facility] Total Protein 5.8(L) 6.3 - 7.9 g/dL 11/09/2024 4:47 AM EDT [facility] Albumin, Plasma 3.2(L) 3.5 - 5.2 g/dL 11/09/2024 4:47 AM EDT [facility] AST, Plasma 18 10 - 50 U/L 11/09/2024 4:47 AM EDT [facility] ALT, Plasma 17 10 - 50 U/L 11/09/2024 4:47 AM EDT [facility] Alkaline Phosphatase, Plasma 110 40 - 115 U/L 11/09/2024 4:47 AM EDT [facility] Total Bilirubin, Plasma <0.2(L) 0.2 - 1.1 mg/dL 11/09/2024 4:47 AM EDT [facility] eGFRcr 103.6 mL/min/1.7 3m*2 11/09/2024 4:47 AM EDT [facility] Comment:Reported eGFRcr in m L/min/1.73m2 is based the CKD-EPI 2020 equation that does not use a race coefficient. Blood Venous blood specimen / Unknown Venipuncture / Unknown 11/09/2024 4:15 AM EDT 11/09/2024 4:18 AM EDT Nathaly Nowak MD LAB BLOOD ORDERABLES Final Resu lt Performing Organization Address City/[facility]/ZIP Co de Phone Number [facility] [address] [place] [address] * (ABNORMAL) POCT glucose meter (11/09/2024 3:30 [...] Comment 11/09/2024 3:31 AM EDT [facility] Discharge Specialist ID Maximiliano Hansen II 11/09/2024 3:31 AM EDT [facility] LAB Device ID [id number] 11/09/2024 3:[address] [facility] Specimen Type POC Capillary 11/09/2024 3:[address] [facility] Blood Capillary blood specimen / Unknown 11/09/2024 3:30 AM EDT 11/09/2024 3:31 AM EDT us Nathaly Nowak MD LAB POINT OF CARE TE ST DOCKED DEVICE UNSOLICITED RESULTS Final Result [facility] [address] [place] [address] * (ABNORMAL) POCT glucose meter (11/08/2024 7:21 [...] Comment 11/08/2024 7:22 PM EDT [facility] Discharge Specialist ID Maximiliano Hansen II 11/08/2024 7:22 PM EDT [facility] LAB Device ID [id number] 11/08/2024 7:22 PM EDT [facility] Specimen Type POC Capillary 11/08/2024 7:22 PM EDT [facility] Blood Capillary blood specimen / Unknown 11/08/2024 7:21 PM EDT 11/08/2024 7:22 PM EDT us Nathaly Nowak MD LAB POINT OF CARE TE ST DOCKED DEVICE UNSOLICITED RESULTS Final Result Performing Organization Address City/State/[facility] Co de Phone Number [facility] [address] [place] [address] * (ABNORMAL) POCT glucose meter (11/08/2024 5:12 [...] Comment 11/08/2024 5:14 PM EDT [facility] Discharge Specialist ID Estefani Sheth 11/08/2024 5:14 PM EDT [facility] Device ID [id number] 11/08/2024 5:14 PM EDT [facility] Specimen Type POC Capillary 11/08/2024 5:14 PM EDT [facility] Blood Capillary blood specimen / Unknown 11/08/2024 5:12 PM EDT 11/08/2024 5:14 PM EDT us Nathaly Nowak MD LAB POINT OF CARE TE ST DOCKED DEVICE UNSOLICITED RESULTS Final Result Performing Organization Address City/[facility]/ZIP Co de Phone Number [facility] [address] [place] [address] * (ABNORMAL) POCT glucose meter (11/08/2024 12:03 PM EDT) Pathologist [facility] POCT Glucose 191(H) 74 - 99 mg/dL [...] for testing. Comment 11/08/2024 12:[address] [facility] Discharge Specialist ID Estefani Sheth 11/08/2024 12:05 PM EDT [facility] Device ID [id number] 11/08/2024 12:[address] [facility] Specimen Type POC Capillary 11/08/2024 12:[address] [facility] Blood Capillary blood specimen / Unknown 11/08/2024 12:03 PM EDT 11/08/2024 12:05 PM EDT Nathaly Nowak MD LAB POINT OF CARE TE ST DOCKED DEVICE UNSOLICITED RESULTS Final Result Performing Organization Address City/[facility]/ZIP Co de Phone Number [facility] [address] [place] [address] * Vancomycin, Peak, Plasma Please draw ~2 hours after 11/08 0600 dose of vancomycin finishes infusing.Consider obtaining level via peripheral stick. If peripheral stick is not feasible, please ensure that line is flushed well prior to drawing level.... (11/08/2024 9:24 AM EDT) Pathologist [facility] Vancomycin, Peak, Plasma 29.1 20.0 - 40.0 ug/mL 11/08/2024 10:31 AM EDT [facility] Blood Venous blood specimen / Unknown Venipuncture / Unknown 11/08/2024 9:24 AM EDT 11/08/2024 9:47 AM EDT Narrative [facility] - 11/08/2024 10:31 AM EDT Therapeutic Peak level: 20-40ug/mL Supra-therapeutic Peak level: >40 ug/mL us Nathaly Nowak MD LAB BLOOD ORDERABLES Final Resu lt Performing Organization Address City/[facility]/ZIP Co de Phone Number [facility] [address] [place] [address] * (ABNORMAL) POCT glucose meter (11/08/2024 8:00 AM EDT) Pathologist [facility] POCT Glucose 150(H) 74 - 99 mg/dL [...] Comment 11/08/2024 8:01 AM EDT [facility] Discharge Specialist ID Estefani Sheth 11/08/2024 8:01 AM EDT [facility] LAB Device ID [id number] 11/08/2024 8:[address] [facility] Specimen Type POC Capillary 11/08/2024 8:[address] [facility] Blood Capillary blood specimen / Unknown 11/08/2024 8:00 AM EDT 11/08/2024 8:01 AM EDT us Nathaly Nowak MD LAB POINT OF CARE TE ST DOCKED DEVICE UNSOLICITED RESULTS Final Result Performing Organization Address City/[facility]/ZIP Co de Phone Number [facility] [address] [place] [address] * (ABNORMAL) CBC and Differential (11/08/2024 4:39 AM EDT) WBC Count 9.18 3.70 - 10.30 10*3/uL LAB HEMATOLOGY METHOD 11/08/2024 4:58 AM EDT [facility] RBC Count 3.11(L) 4.60 - 6.10 10*6/uL LAB HEMATOLOGY METHOD 11/08/2024 4:58 AM EDT [facility] HGB 9.2(L) 13.7 - 17.5 g/dL LAB HEMATOLOGY METHOD 11/08/2024 4:58 AM EDT [facility] HCT 28.9(L) 40.0 - 51.0 % LAB HEMATOLOGY METHOD 11/08/2024 4:58 AM EDT [facility] Platelet Count 485(H) 155 - 369 10*3/uL LAB HEMATOLOGY METHOD 11/08/2024 4:58 AM EDT [facility] MCV 93 79 - 98 fL LAB HEMATOLOGY METHOD 11/08/2024 4:58 AM EDT [facility] MCH 29.6 26.0 - 32.0 pg LAB HEMATOLOGY METHOD 11/08/2024 4:58 AM EDT [facility] MCHC 31.8 30.7 - 35.5 g/dL LAB HEMATOLOGY METHOD 11/08/2024 4:58 AM EDT [facility] RDW 13.0 11.5 - 14.5 % LAB HEMATOLOGY METHOD 11/08/2024 4:58 AM EDT [facility] MPV 8.8 8.8 - 12.5 fL LAB HEMATOLOGY METHOD 11/08/2024 4:58 AM EDT [facility] nRBC 0.0 <=0.0 per 100 WBCs LAB HEMATOLOGY METHOD 11/08/2024 4:58 AM EDT [facility] Differential Type Automated LAB HEMATOLOGY METHOD 11/08/2024 4:58 AM EDT [facility] Neutrophils % 69 % LAB HEMATOLOGY METHOD 11/08/2024 4:58 AM EDT [facility] Lymphocytes % 17 % LAB HEMATOLOGY METHOD 11/08/2024 4:58 AM EDT [facility] Monocytes % 10 % LAB HEMATOLOGY METHOD 11/08/2024 4:58 AM EDT [facility] Eosinophils % 2 % LAB HEMATOLOGY METHOD 11/08/2024 4:58 AM EDT [facility] Basophils % 1 % LAB HEMATOLOGY METHOD 11/08/2024 4:58 AM EDT [facility] Immature Granulocytes % 1 % LAB HEMATOLOGY METHOD 11/08/2024 4:58 AM EDT [facility] Neutrophils Absolute 6.40(H) 1.60 - 6.10 10*3/uL LAB HEMATOLOGY METHOD 11/08/2024 4:58 AM EDT [facility] Lymphocytes Absolute 1.59 1.20 - 3.90 10*3/uL LAB HEMATOLOGY METHOD 11/08/2024 4:58 AM EDT [facility] Monocytes Absolute 0.87 0.30 - 0.90 10*3/uL LAB HEMATOLOGY METHOD 11/08/2024 4:58 AM EDT [facility] Eosinophils Absolute 0.22 0.00 - 0.50 10*3/uL LAB HEMATOLOGY METHOD 11/08/2024 4:58 AM EDT [facility] Basophils Absolute 0.05 0.00 - 0.10 10*3/uL LAB HEMATOLOGY METHOD 11/08/2024 4:58 AM EDT [facility] Immature Granulocytes Absolute 0.05 0.00 - 0.06 10*3/uL LAB HEMATOLOGY METHOD 11/08/2024 4:58 AM EDT [facility] Blood Venous blood specimen / Unknown Venipuncture / Unknown 11/08/2024 4:39 AM EDT 11/08/2024 4:49 AM EDT Narrative [facility] - 11/08/2024 4:58 AM EDT Therapeutic decision making should be based on absolute values, rather than percentages. us Nathaly Nowak MD LAB BLOOD ORDERABLES Final Resu lt [facility] [address] [place] [address] * (ABNORMAL) Comprehensive Metabolic Panel, Plasma (11/08/2024 4:39 AM EDT) Glucose, Plasma 255(H) 74 - 99 mg/dL 11/08/2024 5:20 AM EDT [facility] BUN, Plasma 10 8 - 23 mg/dL 11/08/2024 5:20 AM EDT [facility] Creatinine, Plasma 0.75 0.70 - 1.20 mg/dL 11/08/2024 5:20 AM EDT [facility] BUN/Creatinine Ratio 13 11/08/2024 5:20 AM EDT [facility] Sodium, Plasma 133(L) 136 - 145 mmol/L 11/08/2024 5:20 AM EDT [facility] Potassium, Plasma 5.2(H) 3.6 - 4.9 mmol/L 11/08/2024 5:20 AM EDT [facility] Chloride, Plasma 105 97 - 107 mmol/L 11/08/2024 5:20 AM EDT [facility] CO2, Plasma 20(L) 22 - 29 mmol/L 11/08/2024 5:20 AM EDT [facility] Anion Gap 8 6 - 16 mmol/L 11/08/2024 5:20 AM EDT [facility] Total Calcium, Plasma 7.7(L) 8.9 - 10.2 mg/dL 11/08/2024 5:20 AM EDT [facility] Total Protein 5.6(L) 6.3 - 7.9 g/dL 11/08/2024 5:20 AM EDT [facility] Albumin, Plasma 2.8(L) 3.5 - 5.2 g/dL 11/08/2024 5:20 AM EDT [facility] AST, Plasma 20 10 - 50 U/L 11/08/2024 5:20 AM EDT [facility] Comment:Hemolyzed, result ma y be falsely increased. ALT, Plasma 14 10 - 50 U/L 11/08/2024 5:20 AM EDT [facility] Alkaline Phosphatase, Plasma 119(H) 40 - 115 U/L 11/08/2024 5:20 AM EDT [facility] Total Bilirubin, Plasma <0.2(L) 0.2 - 1.1 mg/dL 11/08/2024 5:20 AM EDT [facility] eGFRcr 100.1 mL/min/1.7 3m*2 11/08/2024 5:20 AM EDT [facility] Comment:Reported eGFRcr in m L/min/1.73m2 is based the CKD-EPI 2020 equation that does not use a race coefficient. Blood Venous blood specimen / Unknown Venipuncture / Unknown 11/08/2024 4:39 AM EDT 11/08/2024 4:43 AM EDT Nathaly Nowak MD LAB BLOOD ORDERABLES Final Resu lt Performing Organization Address [facility] de Phone Number [facility] [address] [place] [phone] * Vancomycin, Trough, Plasma Please draw ~30 minutes prior to dose due at 0600 on 11/08. Please do NOThold dose awaiting level to return. Consider obtaining level via peripheral stick. If peripheral stick is not feasible, please ensure that line is... (11/08/2024 4:39 AM EDT) [facility] Vancomycin, Trough, Plasma 18.7 10.0 - 20.0 ug/mL 11/08/2024 5:22 AM EDT [facility] Blood Venous blood specimen / Unknown Venipuncture / Unknown 11/08/2024 4:39 AM EDT 11/08/2024 4:43 AM EDT Narrative [facility] - 11/08/2024 5:22 AM EDT Therapeutic Trough level: 10-20ug/mL Supra-therapeutic Trough level: >20 ug/mL Nathaly Nowak MD LAB BLOOD ORDERABLES Final Resu Performing Organization Address [facility] Phone Number [facility] [address] [place] [phone] * (ABNORMAL) POCT glucose meter (11/07/2024 7:26 PM EDT) [facility] POCT Glucose 172(H) 74 - 99 mg/dL 11/07/2024 7:28 PM EDT [facility] Comment:Accuracy of a glucos e result [...] 11/07/2024 7:28 PM EDT [facility] Discharge Specialist ID Hansen Maximiliano WALTERS 11/07/2024 7:28 PM EDT [facility] Device ID [id number] 11/07/2024 7:28 PM EDT [facility] Specimen Type POC Capillary 11/07/2024 7:28 PM EDT [facility] Blood Capillary blood specimen / Unknown 11/07/2024 7:26 PM EDT 11/07/2024 7:28 PM EDT Nathaly Nowak MD LAB POINT OF CARE TE ST DOCKED DEVICE UNSOLICITED RESULTS Final Result Performing Organization Address City/[facility]/ZIP Co de Phone Number [facility] [address] [place] [address] * (ABNORMAL) POCT glucose meter (11/07/2024 5:51 [...] Comment 11/07/2024 5:52 PM EDT [facility] Discharge Specialist ID Brigitte Castellon 11/07/2024 5:52 PM EDT [facility] Device ID [id number] 11/07/2024 5:52 PM EDT [facility] Specimen Type POC Capillary 11/07/2024 5:52 PM EDT [facility] Blood Capillary blood specimen / Unknown 11/07/2024 5:51 PM EDT 11/07/2024 5:52 PM EDT Nathaly Nowak MD LAB POINT OF CARE TE ST DOCKED DEVICE UNSOLICITED RESULTS Final Result Performing Organization Address City/[facility]/ZIP Co de Phone Number [facility] [address] [place] [address] * (ABNORMAL) POCT glucose meter (11/07/2024 4:47 [...] 11/07/2024 4:48 PM EDT [facility] Discharge Specialist ID Estefani Sheth 11/07/2024 4:48 PM EDT [facility] Device ID [id number] 11/07/2024 4:48 PM EDT [facility] Specimen Type POC Capillary 11/07/2024 4:48 PM EDT [facility] Blood Capillary blood specimen / Unknown 11/07/2024 4:47 PM EDT 11/07/2024 4:48 PM EDT Nathaly Nowak MD LAB POINT OF CARE TE ST DOCKED DEVICE UNSOLICITED RESULTS Final Result Performing Organization Address City/State/[facility] Co de Phone Number HEALTHCARE LAB [address] [place] [address] * (ABNORMAL) POCT glucose meter (11/07/2024 12:22 PM EDT) [facility] POCT Glucose 172(H) 74 - 99 [...] 11/07/2024 12:24 PM EDT [facility] Discharge Specialist ID Estefani Sheth 11/07/2024 12:24 PM EDT [facility] Device ID [id number] 11/07/2024 12:24 PM EDT [facility] Specimen Type POC Capillary 11/07/2024 12:24 PM EDT [facility] Blood Capillary blood specimen / Unknown 11/07/2024 12:22 PM EDT 11/07/2024 12:24 PM EDT us Nathaly Nowak MD LAB POINT OF CARE TE ST DOCKED DEVICE UNSOLICITED RESULTS Final Result [facility] [address] [place] [address] * (ABNORMAL) CBC and Differential (11/07/2024 11:37 AM EDT) WBC Count 9.96 3.70 - 10.30 10*3/uL LAB HEMATOLOGY METHOD 11/07/2024 12:33 PM EDT [facility] RBC Count 2.81(L) 4.60 - 6.10 10*6/uL LAB HEMATOLOGY METHOD 11/07/2024 12:33 PM EDT [facility] HGB 8.5(L) 13.7 - 17.5 g/dL LAB HEMATOLOGY METHOD 11/07/2024 12:33 PM EDT [facility] HCT 26.0(L) 40.0 - 51.0 % LAB HEMATOLOGY METHOD 11/07/2024 12:33 PM EDT [facility] Platelet Count 524(H) 155 - 369 10*3/uL LAB HEMATOLOGY METHOD 11/07/2024 12:33 PM EDT [facility] MCV 93 79 - 98 fL LAB HEMATOLOGY METHOD 11/07/2024 12:33 PM EDT [facility] MCH 30.2 26.0 - 32.0 pg LAB HEMATOLOGY METHOD 11/07/2024 12:33 PM EDT [facility] MCHC 32.7 30.7 - 35.5 g/dL LAB HEMATOLOGY METHOD 11/07/2024 12:33 PM EDT [facility] RDW 13.1 11.5 - 14.5 % LAB HEMATOLOGY METHOD 11/07/2024 12:33 PM EDT [facility] MPV 9.0 8.8 - 12.5 fL LAB HEMATOLOGY METHOD 11/07/2024 12:33 PM EDT [facility] nRBC 0.0 <=0.0 per 100 WBCs LAB HEMATOLOGY METHOD 11/07/2024 12:33 PM EDT [facility] Differential Type Automated LAB HEMATOLOGY METHOD 11/07/2024 12:33 PM EDT [facility] Neutrophils % 72 % LAB HEMATOLOGY METHOD 11/07/2024 12:33 PM EDT [facility] Lymphocytes % 17 % LAB HEMATOLOGY METHOD 11/07/2024 12:33 PM EDT [facility] Monocytes % 9 % LAB HEMATOLOGY METHOD 11/07/2024 12:33 PM EDT [facility] Eosinophils % 1 % LAB HEMATOLOGY METHOD 11/07/2024 12:33 PM EDT [facility] Basophils % 1 % LAB HEMATOLOGY METHOD 11/07/2024 12:33 PM EDT [facility] Immature Granulocytes % 0 % LAB HEMATOLOGY METHOD 11/07/2024 12:33 PM EDT [facility] Neutrophils Absolute 7.19(H) 1.60 - 6.10 10*3/uL LAB HEMATOLOGY METHOD 11/07/2024 12:33 PM EDT [facility] Lymphocytes Absolute 1.66 1.20 - 3.90 10*3/uL LAB HEMATOLOGY METHOD 11/07/2024 12:33 PM EDT [facility] Monocytes Absolute 0.88 0.30 - 0.90 10*3/uL LAB HEMATOLOGY METHOD 11/07/2024 12:33 PM EDT [facility] Eosinophils Absolute 0.14 0.00 - 0.50 10*3/uL LAB HEMATOLOGY METHOD 11/07/2024 12:33 PM EDT [facility] Basophils Absolute 0.05 0.00 - 0.10 10*3/uL LAB HEMATOLOGY METHOD 11/07/2024 12:33 PM EDT [facility] Immature Granulocytes Absolute 0.04 0.00 - 0.06 10*3/uL LAB HEMATOLOGY METHOD 11/07/2024 12:33 PM EDT [facility] Blood Venous blood specimen / Unknown Venipuncture / Unknown 11/07/2024 11:37 AM EDT 11/07/2024 12:24 PM EDT [facility] - 11/07/2024 12:33 PM EDT Therapeutic decision making should be based on absolute values, rather than percentages. us Nathaly Nowak MD LAB BLOOD ORDERABLES Final Resu lt [facility] [address] [place] [address] * (ABNORMAL) Comprehensive Metabolic Panel, Plasma (11/07/2024 11:37 AM EDT) Glucose, Plasma 173(H) 74 - 99 mg/dL 11/07/2024 1:31 PM EDT [facility] BUN, Plasma 13 8 - 23 mg/dL 11/07/2024 1:31 PM EDT [facility] Creatinine, Plasma 0.92 0.70 - 1.20 mg/dL 11/07/2024 1:31 PM EDT [facility] BUN/Creatinine Ratio 11/07/2024 1:31 PM EDT [facility] Sodium, Plasma 136 136 - 145 mmol/L 11/07/2024 1:31 PM EDT [facility] Potassium, Plasma 4.0 3.6 - 4.9 mmol/L 11/07/2024 1:31 PM EDT [facility] Chloride, Plasma 104 97 - 107 mmol/L 11/07/2024 1:31 PM EDT [facility] CO2, Plasma 23 22 - 29 mmol/L 11/07/2024 1:31 PM EDT [facility] Anion Gap 9 6 - 16 mmol/L 11/07/2024 1:31 PM EDT [facility] Total Calcium, Plasma 7.8(L) 8.9 - 10.2 mg/dL 11/07/2024 1:31 PM EDT [facility] Total Protein 5.7(L) 6.3 - 7.9 g/dL 11/07/2024 1:31 PM EDT [facility] Albumin, Plasma 3.0(L) 3.5 - 5.2 g/dL 11/07/2024 1:31 PM EDT [facility] AST, Plasma 15 10 - 50 U/L 11/07/2024 1:31 PM EDT [facility] ALT, Plasma 16 10 - 50 U/L 11/07/2024 1:31 PM EDT [facility] Alkaline Phosphatase, Plasma 119(H) 40 - 115 U/L 11/07/2024 1:31 PM EDT [facility] Total Bilirubin, Plasma <0.2(L) 0.2 - 1.1 mg/dL 11/07/2024 1:31 PM EDT [facility] eGFRcr 92.3 mL/min/1.7 3m*2 11/07/2024 1:31 PM EDT [facility] Comment:Reported eGFRcr in m L/min/1.73m2 is based the CKD-EPI 2020 equation that does not use a race coefficient. Blood Venous blood specimen / Unknown Venipuncture / Unknown 11/07/2024 11:37 AM EDT 11/07/2024 12:23 PM EDT Nathaly Nowak MD LAB BLOOD ORDERABLES Final Resu lt Performing Organization Address City/[facility]/ZIP Co de Phone Number [facility] [address] [place] [address] * Type and Screen (11/07/2024 11:37 AM EDT) Pathologist [facility] ABO/Rh A Negative 11/06/2024 8:56 AM EDT BLOOD BANK Antibody Screen Negative 11/06/2024 8:56 AM EDT BLOOD BANK Specimen Expiration 11/10/2024 23:59 11/06/2024 8:56 AM EDT BLOOD BANK Blood Venous blood specimen / Unknown Venipuncture / Unknown 11/07/2024 11:37 AM EDT 11/07/2024 11:50 AM EDT Sabrina DOSHI LAB BLOOD BANK TEST ORDERABLES F inal Result Performing Organization Address [facility] de Phone Number BLOOD BANK [address] [place] [address], * (ABNORMAL) POCT glucose meter (11/07/2024 10:34 AM EDT) Pathologist [facility] POCT Glucose 199(H) 74 - 99 mg/dL 11/07/2024 10:36 AM EDT [facility] Comment:Accuracy of a glucos e result [...] Comment 11/07/2024 10:36 AM EDT [facility] Discharge Specialist ID Joy Iraheta 11/07/2024 10:36 AM EDT [facility] Device ID [id number] 11/07/2024 10:36 AM EDT [facility] Specimen Type POC Capillary 11/07/2024 10:36 AM EDT [facility] Blood Capillary blood specimen / Unknown 11/07/2024 10:34 AM EDT 11/07/2024 10:36 AM EDT Nathaly Nowak MD LAB POINT OF CARE TE ST DOCKED DEVICE UNSOLICITED RESULTS Final Result Performing Organization Address City/[facility] Co de Phone Number [facility]ALTHCARE LAB [address] [place] [address] * (ABNORMAL) POCT glucose meter (11/07/2024 9:34 AM EDT) [facility] POCT Glucose 208(H) 74 - 99 mg/dL [...] Comment 11/07/2024 9:36 AM EDT [facility] Discharge Specialist ID Brigitte Castellon 11/07/2024 9:36 AM EDT [facility] Device ID [id number] 11/07/2024 9:36 AM EDT [facility] Specimen Type POC Capillary 11/07/2024 9:36 AM EDT [facility] Blood Capillary blood specimen / Unknown 11/07/2024 9:34 AM EDT 11/07/2024 9:36 AM EDT Nathaly Nowak MD LAB POINT OF CARE TE ST DOCKED DEVICE UNSOLICITED RESULTS Final Result [facility] [address] [place] [address] * (ABNORMAL) POCT glucose meter (11/07/2024 8:20 AM EDT) [facility] POCT Glucose 137(H) 74 - 99 [...] 11/07/2024 8:22 AM EDT [facility] Discharge Specialist ID Estefani Sheth Chris 11/07/2024 8:22 AM EDT [facility] Device ID [id number] 11/07/2024 8:22 AM EDT [facility] Specimen Type POC Capillary 11/07/2024 8:22 AM EDT [facility] Blood Capillary blood specimen / Unknown 11/07/2024 8:20 AM EDT 11/07/2024 8:22 AM EDT Nathaly Nowak MD LAB POINT OF CARE TE ST DOCKED DEVICE UNSOLICITED RESULTS Final Result [facility] [address] [place] [address] * (ABNORMAL) POCT glucose meter (11/07/2024 7:21 AM EDT) [facility] POCT Glucose 151(H) 74 - 99 [...] 11/07/2024 7:22 AM EDT [facility] Discharge Specialist ID Brigitte Castellon 11/07/2024 7:22 AM EDT [facility] Device ID [id number] 11/07/2024 7:22 AM EDT [facility] Specimen Type POC Capillary 11/07/2024 7:22 AM EDT [facility] Blood Capillary blood specimen / Unknown 11/07/2024 7:21 AM EDT 11/07/2024 7:22 AM EDT Nathaly Nowak MD LAB POINT OF CARE TE ST DOCKED DEVICE UNSOLICITED RESULTS Final Result Performing Organization Address City/[facility] Co de Phone Number [facility]ALTHCARE LAB [address] [place] [address] * (ABNORMAL) POCT glucose meter (11/07/2024 6:25 [...] Comment 11/07/2024 6:27 AM EDT [facility] Discharge Specialist ID Nelda Gerber 11/08/19 6:27 AM EDT [facility] Device ID [id number] 11/07/2024 6:27 AM EDT [facility]ARE [facility] Specimen Type POC Capillary 11/07/2024 6:27 AM EDT [facility] Blood Capillary blood specimen / Unknown 11/07/2024 6:25 AM EDT 11/07/2024 6:27 AM EDT us Nathaly Nowak MD LAB POINT OF CARE TE ST DOCKED DEVICE UNSOLICITED RESULTS Final Result Performing Organization Address City/[facility] Co de Phone Number [facility]CARE LAB [address] [place] [address] * (ABNORMAL) POCT glucose meter (11/07/2024 5:03 [...] Comment 11/07/2024 5:08 AM EDT [facility] Discharge Specialist ID Nelda Gerber 11/08/19 5:08 AM EDT [facility]ALTH[facility]ARE LAB Device ID [id number] 11/07/2024 5:08 AM EDT [facility]ARE [facility] Specimen Type POC Capillary 11/07/2024 5:08 AM EDT [facility] Blood Capillary blood specimen / Unknown 11/07/2024 5:03 AM EDT 11/07/2024 5:08 AM EDT Nathaly Nowak MD LAB POINT OF CARE TE ST DOCKED DEVICE UNSOLICITED RESULTS Final Result [facility] [address] [place] [address] * (ABNORMAL) POCT glucose meter (11/07/2024 4:16 AM EDT) [facility] POCT Glucose 142(H) 74 - 99 mg/dL [...] 11/07/2024 4:18 AM EDT [facility] Discharge Specialist ID Nelda Gerber 11/08/19 4:18 AM EDT [facility]ARE LAB Device ID [id number] 11/07/2024 4:18 AM EDT [facility] Specimen Type POC Capillary 11/07/2024 4:18 AM EDT [facility] Blood Capillary blood specimen / Unknown 11/07/2024 4:16 AM EDT 11/07/2024 4:18 AM EDT Nathaly Nowak MD LAB POINT OF CARE TE ST DOCKED DEVICE UNSOLICITED RESULTS Final Result Performing Organization Address [facility] de Phone Number [facility] [address] [place] [address] * (ABNORMAL) POCT glucose meter (11/07/2024 3:21 AM EDT) Pathologist [facility] POCT Glucose 141(H) 74 - 99 mg/dL [...] for testing. Comment 11/07/2024 3:[address] [facility] Discharge Specialist ID Nelda Gerber 11/08/19 3:[address] [facility] Device ID [id number] 11/07/2024 3:[address] [facility] Specimen Type POC Capillary 11/07/2024 3:[address] [facility] Blood Capillary blood specimen / Unknown 11/07/2024 3:21 AM EDT 11/07/2024 3:23 AM EDT us Nathaly Nowak MD LAB POINT OF CARE TE ST DOCKED DEVICE UNSOLICITED RESULTS Final Result Performing Organization Address City/[facility] de Phone Number HEALTHCARE LAB [address] [place] [address] * (ABNORMAL) POCT glucose meter (11/07/2024 2:10 AM EDT) Pathologist [facility] POCT Glucose 146(H) 74 - 99 mg/dL [...] 11/07/2024 2:12 AM EDT [facility] Discharge Specialist ID Nelda Gerber 11/08/19 2:12 AM EDT [facility] Device ID [id number] 11/07/2024 2:12 AM EDT [facility] Specimen Type POC Capillary 11/07/2024 2:12 AM EDT [facility] Blood Capillary blood specimen / Unknown 11/07/2024 2:10 AM EDT 11/07/2024 2:12 AM EDT Nathaly Nowak MD LAB POINT OF CARE TE ST DOCKED DEVICE UNSOLICITED RESULTS Final Result Performing Organization Address [facility] de Phone Number HEALTHCARE LAB [address] [place] [address] * (ABNORMAL) POCT glucose meter (11/07/2024 1:08 [...] Comment 11/07/2024 1:10 AM EDT [facility] Discharge Specialist ID Nelda Gerber 11/08/19 1:10 AM EDT [facility]ARE LAB Device ID [id number] 11/07/2024 1:10 AM EDT [facility] Specimen Type POC Capillary 11/07/2024 1:10 AM EDT [facility] Blood Capillary blood specimen / Unknown 11/07/2024 1:08 AM EDT 11/07/2024 1:10 AM EDT us Nathaly Nowak MD LAB POINT OF CARE TE ST DOCKED DEVICE UNSOLICITED RESULTS Final Result Performing Organization Address [facility] Co de Phone Number HEALTHCARE LAB [address] [place] [address] * (ABNORMAL) POCT glucose meter (11/07/2024 12:10 AM EDT) [facility] POCT Glucose 127(H) 74 - 99 mg/dL [...] Comment 11/07/2024 12:13 AM EDT HEALTHCARE LAB Discharge Specialist ID Nelda Gerber 11/08/19 12:13 AM EDT [facility] Device ID [id number] 11/07/2024 12:[address] [facility] Specimen Type POC Capillary 11/07/2024 12:[address] [facility] Blood Capillary blood specimen / Unknown 11/07/2024 12:10 AM EDT 11/07/2024 12:13 AM EDT Nathaly Nowak MD LAB POINT OF CARE TE ST DOCKED DEVICE UNSOLICITED RESULTS Final Result [facility] [address] [place] [address] * (ABNORMAL) POCT glucose meter (11/06/2024 11:14 PM EDT) [facility] POCT Glucose 71(L) 74 - 99 [...] 11/06/2024 11:16 PM EDT [facility] Discharge Specialist ID Nelda Gerber 11/07/19 11:16 [address] [facility] Device ID [id number] 11/06/2024 11:16 PM EDT [facility] Specimen Type POC Capillary 11/06/2024 11:16 PM EDT [facility]ALTH[facility]ARE LAB Blood Capillary blood specimen / Unknown 11/06/2024 11:14 PM EDT 11/06/2024 11:16 PM EDT Nathaly Nowak MD LAB POINT OF CARE TE ST DOCKED DEVICE UNSOLICITED RESULTS Final Result Performing Organization Address City/[facility]/ZIP Co de Phone Number HEALTHCARE LAB [address] [place] [address] * (ABNORMAL) POCT glucose meter (11/06/2024 10:07 [...] Comment 11/06/2024 10:09 PM EDT HEALTHCARE LAB Discharge Specialist ID Nelda Gerber 11/07/19 10:09 PM EDT HEALTHCARE LAB Device ID [id number] 11/06/2024 10:09 PM EDT [facility]ALTH[facility]ARE LAB Specimen Type POC Capillary 11/06/2024 10:09 PM EDT [facility] Blood Capillary blood specimen / Unknown 11/06/2024 10:07 PM EDT 11/06/2024 10:09 PM EDT Nathaly Nowak MD LAB POINT OF CARE TE ST DOCKED DEVICE UNSOLICITED RESULTS Final Result Performing Organization Address City/[facility]/ZIP Co de Phone Number HEALTHCARE LAB [address] [place] [address] * (ABNORMAL) POCT glucose meter (11/06/2024 8:22 [...] 11/06/2024 8:25 PM EDT [facility] Discharge Specialist ID Nelda Gerber 11/07/19 8:25 PM EDT [facility] Device ID [id number] 11/06/2024 8:25 PM EDT [facility] Specimen Type POC Capillary 11/06/2024 8:25 PM EDT [facility] Blood Capillary blood specimen / Unknown 11/06/2024 8:22 PM EDT 11/06/2024 8:25 PM EDT us Nathaly Nowak MD LAB POINT OF CARE TE ST DOCKED DEVICE UNSOLICITED RESULTS Final Result Performing Organization Address City/State/[facility] Co de Phone Number [facility] [address] [place] [address] * (ABNORMAL) POCT glucose meter (11/06/2024 7:31 PM EDT) [facility] Signature POCT Glucose 359(H) 74 - [...] 11/06/2024 7:32 PM EDT [facility] Discharge Specialist ID Nelda Gerber 11/07/19 7:32 PM EDT [facility] Device ID [id number] 11/06/2024 7:32 PM EDT [facility] Specimen Type POC Capillary 11/06/2024 7:32 PM EDT [facility] Blood Capillary blood specimen / Unknown 11/06/2024 7:31 PM EDT 11/06/2024 7:32 PM EDT Nathaly Nowak MD LAB POINT OF CARE TE ST DOCKED DEVICE UNSOLICITED RESULTS Final Result Performing Organization Address City/[facility] Co de Phone Number HEALTHCARE LAB [address] [place] [address] * (ABNORMAL) POCT glucose meter (11/06/2024 6:15 [...] for testing. Comment 11/06/2024 6:17 PM EDT [facility] Discharge Specialist ID Estefani Sheth 11/06/2024 6:17 PM EDT [facility] Device ID [id number] 11/06/2024 6:[address] [facility] Specimen Type POC Capillary 11/06/2024 6:[address] [facility] Blood Capillary blood specimen / Unknown 11/06/2024 6:15 PM EDT 11/06/2024 6:17 PM EDT Nathaly Nowak MD LAB POINT OF CARE TE ST DOCKED DEVICE UNSOLICITED RESULTS Final Result Performing Organization Address City/[facility] Co de Phone Number [facility] [address] [place] [address] * (ABNORMAL) POCT glucose meter (11/06/2024 4:57 [...] Comment 11/06/2024 4:58 PM EDT [facility]ALTHCARE LAB Discharge Specialist ID Estefani Sheth 11/06/2024 4:58 PM EDT [facility]ALTH[facility]ARE LAB Device ID [id number] 11/06/2024 4:58 PM EDT [facility]ALTH[facility]ARE LAB Specimen Type POC Capillary 11/06/2024 4:58 PM EDT [facility] Blood Capillary blood specimen / Unknown 11/06/2024 4:57 PM EDT 11/06/2024 4:58 PM EDT us Nathaly Nowak MD LAB POINT OF CARE TE ST DOCKED DEVICE UNSOLICITED RESULTS Final Result Performing Organization Address City/[facility]/ZIP Co de Phone Number [facility]ALTH[facility]ARE [facility] [address] [place] [address] * (ABNORMAL) POCT glucose meter (11/06/2024 2:08 [...] Comment 11/06/2024 2:09 PM EDT [facility]ALTH[facility]ARE LAB Discharge Specialist ID Brigitte Castellon 11/06/2024 2:09 PM EDT HEALTH[facility]ARE LAB Device ID [id number] 11/06/2024 2:09 PM EDT [facility]ALTH[facility]ARE LAB Specimen Type POC Capillary 11/06/2024 2:09 PM EDT [facility] Blood Capillary blood specimen / Unknown 11/06/2024 2:08 PM EDT 11/06/2024 2:09 PM EDT us Nathaly Nowak MD LAB POINT OF CARE TE ST DOCKED DEVICE UNSOLICITED RESULTS Final Result Performing Organization Address City/[facility]/ZIP Co de Phone Number [facility]ARE [facility] [address] [place] [address] * (ABNORMAL) POCT glucose meter (11/06/2024 12:27 [...] Comment 11/06/2024 12:28 PM EDT [facility]ALTH[facility]ARE LAB Discharge Specialist ID Jacinta Galloway 11/06/2024 12:28 PM EDT HEALTH[facility]ARE LAB Device ID [id number] 11/06/2024 12:28 PM EDT [facility]ALTH[facility]ARE LAB Specimen Type POC Capillary 11/06/2024 12:28 PM EDT [facility] Blood Capillary blood specimen / Unknown 11/06/2024 12:27 PM EDT 11/06/2024 12:28 PM EDT us Nathaly Nowak MD LAB POINT OF CARE TE ST DOCKED DEVICE UNSOLICITED RESULTS Final Result Performing Organization Address City/State/[facility] Co de Phone Number [facility] [address] [place] [address] * (ABNORMAL) Tissue Culture and Gram Stain (11/06/2024 11:34 AM EDT) [facility] Culture Moderate Growth 7:35 AM EDT [facility] Culture 2+ Enterobacter cloacae complex(A) ANGÉLICA 11/15/2024 7:35 AM EDT [facility] Comment: This isolate has been identified using the FDA Approved [employer] [place] System The organism value for this result has been updated. These results have been appended to the previously preliminary verified report. Edited result: Previously reported as Gram Negative Jesus on 11/07/2024 at 1434 EDT. Culture 2+ Streptococcus mitis/oralis group(A) ANGÉLICA 11/15/2024 7:35 AM EDT [facility] Comment: This isolate has been identified using the FDA Approved [employer] [place] System The organism value for this result has been updated. These results have been appended to the previously preliminary verified report. Culture 2+ Pasteurella stomatis(A) ANGÉLICA 11/15/2024 7:35 AM EDT [facility] Comment: This result was determined by [employer] tof mass spectrometry using the [employer] database and is for research use only. The organism value for this result has been updated. These results have been appended to the previously preliminary verified report. Gram Stain Result Few Gram negative rods(A) 11/15/2024 7:35 AM EDT [facility] Gram Stain Result Moderate Polymorphonuclear leukocytes(A) 11/15/2024 7:35 AM EDT [facility] Gram Stain Result Few Gram positive cocci in pairs(A) 11/15/2024 7:35 AM EDT [facility] Tissue Topography unknown / Unknown 11/06/2024 11:34 AM EDT 11/06/2024 12:18 PM EDT Comment:Pre-op diagnosis: Surgical wound infection [T81.49XA] Narrative [facility] - 11/15/2024 7:35 AM [...] GENERAL ORDE LAM Edited Result - Final [facility] [address] [place] [address] * (ABNORMAL) Anaerobic Culture (11/06/2024 11:34 AM EDT) Culture No anaerobes isolated 11/14/2024 1:25 PM EDT [facility] Culture Staphylococcus pseudintermedius( A) 11/14/2024 1:25 PM EDT [facility] Comment: This result was determined by [employer] tof mass spectrometry using the [employer] database and is for research use only. This is an appended report. These results have been appended to a previously final verified report. Tissue Topography unknown / Unknown 11/06/2024 11:34 AM EDT 11/06/2024 12:18 PM EDT Comment:Pre-op diagnosis: Surgical wound infection [T81.49XA] Narrative [facility] - 11/14/2024 1:25 PM [...] GENERAL ORDAna FRITZ Edited Result - Final [facility] [address] [place] [address] * (ABNORMAL) Routine Culture and Gram Stain (11/06/2024 11:29 AM EDT) Culture Moderate Growth 5:29 PM EDT [facility] Culture Enterobacter cloacae complex(A) 11/08/2024 5:29 PM EDT [facility] Comment: This isolate has been identified using the FDA Approved [employer] [place] System For susceptibility results refer to: - [id number] The organism value for this result has been updated. These results have been appended to the previously preliminary verified report. Gram Stain Result No polymorphonuclear leukocytes seen 11/08/2024 5:29 PM EDT [facility] Gram Stain Result No organisms seen 11/08/2024 5:29 PM EDT [facility] Swab Topography unknown / Unknown 11/06/2024 11:29 AM EDT 11/06/2024 12:19 PM EDT Comment:Pre-op diagnosis: Surgical wound infection [T81.49XA] Nathaly Nowak MD LAB MICROBIOLOGY - [facility] Final Result Performing Organization Address [facility] Co de Phone Number [facility] [address] [place] [address] * Fungal Culture, Routine (11/06/2024 11:29 AM EDT) Culture No Fungal Growth at 1 Week 11/13/2024 8:29 AM EDT [facility] Swab Topography unknown / Unknown 11/06/2024 11:29 AM EDT 11/06/2024 12:19 PM EDT Comment:Pre-op diagnosis: Surgical wound infection [T81.49XA] Nathaly Nowak MD LAB MICROBIOLOGY - GENERAL ORDE RABLES Final Result Performing Organization Address City/[facility] Co de Phone Number [facility] [address] [place] [address] * (ABNORMAL) Anaerobic Culture (11/06/2024 11:29 AM EDT) Culture No anaerobes isolated 11/14/2024 1:25 PM EDT [facility] Culture Streptococcus mitis/oralis group(A) 11/14/2024 1:25 PM EDT [facility] Comment: This result was determined by [employer] tof mass spectrometry using the [employer] database and is for research use only. The organism value for this result has been updated. These results have been appended to the previously preliminary verified report. This is a corrected result. Previous organism was Mixed skin clifton on 11/10/2024 at 0718 EDT. Culture Staphylococcus pseudintermedius( A) 11/14/2024 1:25 PM EDT [facility] Comment: This isolate has been identified using the FDA Approved [employer] [place] System This is an appended report. These results have been appended to a previously final verified report. Swab Topography unknown / Unknown 11/06/2024 11:29 AM EDT 11/06/2024 12:19 PM EDT Comment:Pre-op diagnosis: Surgical wound infection [T81.49XA] Narrative [facility] - 11/14/2024 1:25 PM [...] GENERAL ATIYA FRITZ Edited Result - Final [facility] [address] [place] [address] * Routine Culture and Gram Stain (11/06/2024 11:28 AM EDT) Culture No growth at day 4 2024 11:24 AM EDT [facility] Gram Stain Result No organisms seen 11/10/2024 11:24 AM EDT [facility] Gram Stain Result No polymorphonuclear leukocytes seen 11/10/2024 11:24 AM EDT [facility] Swab Topography unknown / Unknown 11/06/2024 11:28 AM EDT 11/06/2024 12:20 PM EDT Comment:Pre-op diagnosis: Surgical wound infection [T81.49XA] us Nathaly Nowak MD LAB MICROBIOLOGY - GENERAL ORDE LAM Final Result Performing Organization Address City/[facility] Co de Phone Number [facility] [address] [place] [address] * Fungal Culture, Routine (11/06/2024 11:28 AM EDT) Culture No Fungal Growth at 1 Week 11/13/2024 8:29 AM EDT [facility] Swab Topography unknown / Unknown 11/06/2024 11:28 AM EDT 11/06/2024 12:20 PM EDT Comment:Pre-op diagnosis: Surgical wound infection [T81.49XA] us Nathaly Nowak MD LAB MICROBIOLOGY - GENERAL ORDE LAM Final Result Performing Organization Address City/[facility] Co de Phone Number [facility] [address] [place] [address] * Anaerobic Culture (11/06/2024 11:28 AM EDT) Culture No growth at day 4 11/13/2024 12:53 PM EDT [facility] Swab Topography unknown / Unknown 11/06/2024 11:28 AM EDT 11/06/2024 12:20 PM EDT Comment:Pre-op diagnosis: Surgical wound infection [T81.49XA] us Nathaly Nowak MD LAB MICROBIOLOGY - GENERAL ORDE RABONEIDA Final Result [facility] [address] [place] [address] * (ABNORMAL) POCT glucose meter (11/06/2024 10:16 AM EDT) [facility] POCT Glucose 194(H) 74 - 99 [...] Comment 11/06/2024 10:18 AM EDT [facility] Discharge Specialist ID Elias, Lacy 11/07/19 10:18 AM EDT [facility] LAB Device ID [id number] 11/06/2024 10:18 AM EDT [facility] Specimen Type POC Capillary 11/06/2024 10:[address] [facility] Blood Capillary blood specimen / Unknown 11/06/2024 10:16 AM EDT 11/06/2024 10:18 AM EDT Nathaly Nowak MD LAB POINT OF CARE TE ST DOCKED DEVICE UNSOLICITED RESULTS Final Result Performing Organization Address [facility] Co de Phone Number [facility] [address] [place] [address] * (ABNORMAL) POCT glucose meter (11/06/2024 5:58 AM EDT) [facility] POCT Glucose 182(H) 74 - 99 [...] Comment 11/06/2024 6:01 AM EDT [facility] Discharge Specialist ID Raj Laird 11/07/19 6:01 AM EDT [facility] LAB Device ID [id number] 11/06/2024 6:01 AM EDT [facility] Specimen Type POC Capillary 11/06/2024 6:01 AM EDT [facility] Blood Capillary blood specimen / Unknown 11/06/2024 5:58 AM EDT 11/06/2024 6:01 AM EDT Nathaly Nowak MD LAB POINT OF CARE TE ST DOCKED DEVICE UNSOLICITED RESULTS Final Result Performing Organization Address City/[facility] Co de Phone Number [facility] [address] [place] [address] * (ABNORMAL) POCT glucose meter (11/06/2024 5:36 AM EDT) Pathologist [facility] POCT Glucose 202(H) 74 - 99 mg/dL [...] 11/06/2024 5:38 AM EDT [facility] Discharge Specialist ID Shahid Sanches 11/06/2024 5:38 AM EDT [facility]ALTHCARE LAB Device ID [id number] 11/06/2024 5:38 AM EDT [facility] Specimen Type POC Capillary 11/06/2024 5:38 AM EDT [facility] Blood Capillary blood specimen / Unknown 11/06/2024 5:36 AM EDT 11/06/2024 5:38 AM EDT us Nathaly Nowak MD LAB POINT OF CARE TE ST DOCKED DEVICE UNSOLICITED RESULTS Final Result Performing Organization Address City/[facility] Co de Phone Number [facility] [address] [place] [address] * (ABNORMAL) Hemoglobin A1c (11/06/2024 1:07 AM EDT) Hemoglobin A1c 7.6(H) <5.7 % 11/06/2024 11:09 AM EDT [facility] Blood Venous blood specimen / Unknown Venipuncture / Unknown 11/06/2024 1:07 AM EDT 11/06/2024 1:26 AM EDT Narrative [facility] - 11/06/2024 11:09 AM EDT HA1C Interpretive Data: Diagnosis of Diabetes: Diabetic > or = 6.5% Pre-diabetic 5.7 to 6.4% Non-diabetic < or = 5.6% Glycemic Targets for Type I and Type II Diabetics: Non- Adults <7.0% Adults <6.0% Children and Adolescents <7.5% Source: [place] Diabetes Association. Standards of medical care in diabetes,2017. Diabetes Care.2017:40 (suppl 1):S1-S135. us Nathaly Nowak MD LAB BLOOD ORDERABLES Final Resu lt Performing Organization Address City/[facility]/ZIP Co de Phone Number [facility] [address] [place] [address] * Blood Culture (Aerobic/Anaerobet Set) (11/06/2024 1:07 AM EDT) Culture No growth at day 5 11/11/2024 2:49 AM EDT [facility] Blood Structure of right hand / Unknown Venipuncture / Unknown 11/06/2024 1:07 AM EDT 11/06/2024 2:36 AM EDT us Nathaly Nowak MD LAB MICROBIOLOGY - GENERAL ORDE RABLES Final Result [facility] [address] [place] [address] * Blood Culture (Aerobic/Anaerobet Set) (11/06/2024 1:07 AM EDT) Culture No growth at day 5 11/11/2024 3:01 AM EDT [facility] Blood Structure of antecubital vein / Unknown Venipuncture / Unknown 11/06/2024 1:07 AM EDT 11/06/2024 2:36 AM EDT us Nathaly Nowak MD LAB MICROBIOLOGY - GENERAL ORDAna FRITZ Final Result [facility] [address] [place] [address] * (ABNORMAL) Basic metabolic panel (11/06/2024 1:07 AM EDT) Glucose, Plasma 207(H) 74 - 99 mg/dL 11/06/2024 1:41 AM EDT [facility] BUN, Plasma 20 8 - 23 mg/dL 11/06/2024 1:41 AM EDT [facility] Creatinine, Plasma 0.92 0.70 - 1.20 mg/dL 11/06/2024 1:41 AM EDT [facility] BUN/Creatinine Ratio 22 11/06/2024 1:41 AM EDT [facility] Sodium, Plasma 136 136 - 145 mmol/L 11/06/2024 1:41 AM EDT [facility] Potassium, Plasma 4.5 3.6 - 4.9 mmol/L 11/06/2024 1:41 AM EDT [facility] Chloride, Plasma 104 97 - 107 mmol/L 11/06/2024 1:41 AM EDT [facility] CO2, Plasma 22 22 - 29 mmol/L 11/06/2024 1:41 AM EDT [facility] Anion Gap 10 6 - 16 mmol/L 11/06/2024 1:41 AM EDT [facility] Total Calcium, Plasma 9.0 8.9 - 10.2 mg/dL 11/06/2024 1:41 AM EDT [facility] eGFRcr 92.3 mL/min/1.7 3m*2 11/06/2024 1:41 AM EDT [facility] Comment:Reported eGFRcr in m L/min/1.73m2 is based the CKD-EPI 2020 equation that does not use a race coefficient. Blood Venous blood specimen / Unknown Venipuncture / Unknown 11/06/2024 1:07 AM EDT 11/06/2024 1:12 AM EDT us Nathaly Nowak MD LAB BLOOD ORDERABLES Final Resu lt Performing Organization Address [facility]/ZIP Co de Phone Number [facility] [address] [place] [address] * Phosphorus (11/06/2024 1:07 AM EDT) Phosphorus, Plasma 3.2 2.5 - 4.5 mg/dL 11/06/2024 1:41 AM EDT [facility] Blood Venous blood specimen / Unknown Venipuncture / Unknown 11/06/2024 1:07 AM EDT 11/06/2024 1:12 AM EDT Nathaly Nowak MD LAB BLOOD ORDERABLES Final Resu lt Performing Organization Address [facility] Co de Phone Number [facility] [address] [place] [address] * Magnesium (11/06/2024 1:07 AM EDT) Magnesium, Plasma 2.2 1.9 - 2.4 mg/dL 11/06/2024 1:41 AM EDT [facility] Blood Venous blood specimen / Unknown Venipuncture / Unknown 11/06/2024 1:07 AM EDT 11/06/2024 1:12 AM EDT Nathaly Nowak MD LAB BLOOD ORDERABLES Final Resu lt Performing Organization Address City/[facility]/ZIP Co de Phone Number [facility] [address] [place] [address] * (ABNORMAL) CBC (11/06/2024 1:07 AM EDT) WBC Count 9.70 3.70 - 10.30 10*3/uL LAB HEMATOLOGY METHOD 11/06/2024 1:19 AM EDT [facility] RBC Count 2.89(L) 4.60 - 6.10 10*6/uL LAB HEMATOLOGY METHOD 11/06/2024 1:19 AM EDT [facility] HGB 8.8(L) 13.7 - 17.5 g/dL LAB HEMATOLOGY METHOD 11/06/2024 1:19 AM EDT [facility] HCT 26.2(L) 40.0 - 51.0 % LAB HEMATOLOGY METHOD 11/06/2024 1:19 AM EDT [facility] Platelet Count 542(H) 155 - 369 10*3/uL LAB HEMATOLOGY METHOD 11/06/2024 1:19 AM EDT [facility] MCV 91 79 - 98 fL LAB HEMATOLOGY METHOD 11/06/2024 1:19 AM EDT [facility] MCH 30.4 26.0 - 32.0 pg LAB HEMATOLOGY METHOD 11/06/2024 1:19 AM EDT [facility] MCHC 33.6 30.7 - 35.5 g/dL LAB HEMATOLOGY METHOD 11/06/2024 1:19 AM EDT [facility] RDW 13.2 11.5 - 14.5 % LAB HEMATOLOGY METHOD 11/06/2024 1:19 AM EDT [facility] MPV 8.7(L) 8.8 - 12.5 fL LAB HEMATOLOGY METHOD 11/06/2024 1:19 AM EDT [facility] nRBC 0.0 <=0.0 per 100 WBCs LAB HEMATOLOGY METHOD 11/06/2024 1:19 AM EDT [facility] Blood Venous blood specimen / Unknown Venipuncture / Unknown 11/06/2024 1:07 AM EDT 11/06/2024 1:12 AM EDT us Nathaly Nowak MD LAB BLOOD ORDERABLES Final Resu lt [facility] [address] [place] [address] * [facility] (11/06/2024 12:58 AM EDT) Extra Hold for add-ons 11/06/2024 3:21 AM EDT [facility] Comment:Auto resulted. Blood Venous blood specimen / Unknown 11/06/2024 12:58 AM EDT 11/06/2024 1:13 AM EDT us Nathaly Nowak MD LAB BLOOD ORDERABLES Final Resu lt Performing Organization Address [facility]/ZIP Co de Phone Number [facility] [address] [place] [address] * Gold Top (11/06/2024 12:58 AM EDT) Extra Hold for add-ons 11/06/2024 3:21 AM EDT [facility] Comment:Auto resulted. Blood Venous blood specimen / Unknown 11/06/2024 12:58 AM EDT 11/06/2024 1:13 AM EDT us Nathaly Nowak MD LAB BLOOD ORDERABLES Final Resu lt Performing Organization Address [facility] Co de Phone Number [facility] [address] [place] [address] * Light Green Top (11/06/2024 12:58 AM EDT) Extra Hold for add-ons 11/06/2024 3:21 AM EDT [facility] Comment:Auto resulted. Blood Venous blood specimen / Unknown 11/06/2024 12:58 AM EDT 11/06/2024 1:13 AM EDT us Nathaly Nowak MD LAB BLOOD ORDERABLES Final Resu lt Performing Organization Address [facility] Co de Phone Number [facility] [address] [place] [address] * Light Blue Top (11/06/2024 12:58 AM EDT) Extra Hold for add-ons 11/06/2024 3:21 AM EDT [facility] Comment:Auto resulted. Blood Venous blood specimen / Unknown 11/06/2024 12:58 AM EDT 11/06/2024 1:13 AM EDT us Nathaly Nowak MD LAB BLOOD ORDERABLES Final Resu lt Performing Organization Address [facility]/ZIP Co de Phone Number [facility] [address] [place] [address] * Light Blue Top (11/06/2024 12:58 AM EDT) Pathologist [facility] Extra Hold for add-ons 11/06/2024 3:21 AM EDT [facility] Comment:Auto resulted. Blood Venous blood specimen / Unknown 11/06/2024 12:58 AM EDT 11/06/2024 1:13 AM EDT Nathaly Nowak MD LAB BLOOD ORDERABLES Final Resu lt Performing Organization Address City/[facility]/ZIP Co de Phone Number [facility] [address] [place] [address] * (ABNORMAL) POCT glucose meter (11/06/2024 12:45 AM EDT) [facility] POCT Glucose 204(H) 74 - 99 mg/dL [...] Comment 11/06/2024 12:48 AM EDT [facility] Discharge Specialist ID Raj Laird 11/07/19 25 12:48 AM EDT [facility]ALTH[facility] LAB Device ID [id number] 11/06/2024 12:48 AM EDT [facility] Specimen Type POC Capillary 11/06/2024 12:48 AM EDT [facility] Blood Capillary blood specimen / Unknown 11/06/2024 12:45 AM EDT 11/06/2024 12:48 AM EDT us Nathaly Nowak MD LAB POINT OF CARE TE ST DOCKED DEVICE UNSOLICITED RESULTS Final Result Performing Organization Address City/[facility] Co de Phone Number [facility] [address] [place] [address] documented in this encounter Visit Diagnoses Diagnosis [...] Starting on Mon11/06/24 at 0031, Until [facility] 11/14/24 at 1804, Routine, line care [...] Starting on Mon11/06/24 at 0753, Until [facility] 11/14/24 at 1804, Routine, On Unit - Preprocedure, line care sodium chloride 0.9 % flush 10 mL 10 mL, Intravenous, Every 12 hours, First dose on [facility] 11/09/24 at 1515, Until Discontinued, Routine [...] documented as of this encounter Care Teams Hairspring Studder Relationship Specialty Start Date End Date Asad Victor MD [address] [place] [address] PCP - General 10/07/22 documented as of this encounter
--- OUTSIDE RECORDS SUMMARY | 2024-11-06 10:08 | XMS_ITS | Encounter Summary ---
Author Organization Healthcare Address [address] [place] [address] Care Team Providers Care Card Hand Name Role Phone Asad Victor MD Primary Care Provider + [phone] Reason for Visit * Reason Comments Post-op Problem Wound Check * Auth/Cert (Routine) Specialty Diagnoses / Procedures Referred By Contac t Referred To Contact Diagnoses Wound infection Post-op Vasc Sx wounds - sx on 10/17 at Nathaly Nowak MD [address] [address] Phone: tel: fax: [facility] [address] [place] [address] Phone: tel: Referral ID Status Reason Start Date Expiration Date Visits Re quested Visits Authorized [id number] 1 1 Encounter Details Date Type Department Care Team (Late st Contact Info) Description 11/06/2024 10:08 AM EDT - 11/06/2024 11:38 AM EDT Surgery [facility] OPERATING ROOM [address] [place] [address] Nathaly Nowak MD [id number] [place] [address] Left groin exploration and washout, [...] the past 12 m [facility], were you homeless or living [...] drink first t dino in the morning ([employer]ME) to steady your nerves or to get rid of a hangover? 0 10/18/2021 CAGE Questionnaire Score 0 022 Utilities Answer Date Recorded In the past 12 months has [employer], gas, oil, or water [employer] threatened to shut off services in your [...] Carmona with any questions or concerns at [phone]. It is important that you get your [...] Note Bev Borja 64 y.o. 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 Please arrive at 11 am daily. [facility] [address] Go to Wound care clinic. First appointment is 1:10 pm. Please call [phone] with scheduling concerns. Discharge Transportation: Transportation Anticipated: medical transport Transportation Home at Discharge: Medical Transport Follow Up Transport: Transportation Needed to Follow up Appoinments: Medical Transport Additional Comments: Patient discharging home. No other SW needs identified. Mariia Monterroso OUTSIDE PLANT SUPERVISOR * Discharge Summary - Melecio Echevarria DO - 11/14/2024 12:46 PM EDT Hospitalization Admit Date/Time: 11/05/2024 9:45 PM Admitting Attending: Nathaly Nowak Discharge Date: 11/14/2024 Discharge Attending Physician: Nathaly Nowak MD PCP name and Address: Asad Victor MD (Inactive) [address] [place] [address] / [address] [place] [address] Referring provider name and address: Wade Cowart, DO [address] [place] [address] Chief Concern, Brief History of Present Illness, and Hospital Course Mr. Borja is a 64 y/o male that presented to [facility] on 11/06/2024 for surgical wound infection [...] Your Medications These [facility] - GLENDA Solorzano - [address], [place] [address] ertapenem injection micafungin injection Discharge Diagnosis Medical [...] Time Provider Department Center 11/26/2024 2:00 PM [facility] 1 [facility] 11/26/2024 2:30 PM [facility] 2 [facility] 11/26/2024 3:20 PM Elisabet Schuster PA [facility] 11/29/2024 2:30 PM Oscar Appiah MD [id number] [place] Test Results Pending At Discharge Pending Labs [...] a 64 y/o male that presented to [facility] on 11/06/2024 for surgical wound infection [...] portions of the procedure(s) and immediately available [facility] services the entire duration. See resident note for details. * Progress Notes - Mariia Monterroso - 11/13/2024 1:57 PM EDT Case Management Adult Progress Note Bev Borja 64 y.o. male CSN: [id number] Admission: 11/05/2024 9:45 PM Primary Problem: Wound infection Wound vac to be delivered today by at bedside. SW sent referral/orders to [facility] wound care center (fax [phone]) and infusion clinic (fax [phone]). Plan to discharge tomorrow. SW will continue to follow. Mariia Monterroso OUTSIDE PLANT SUPERVISOR * Progress Notes - Bianca Knight PharmD - 11/13/2024 12:55 PM EDT Vancomycin therapy has been stopped per ID recommendation. Pharmacist will sign off from dosing and monitoring vancomycin. Please re- consult a pharmacist if more vancomycin is indicated. Bianca Knight PharmD, [facility] * Progress Notes - Ailin [...] Lumen PICC Antimicrobial Regimen: IV Ertapenem 1g [id number] start date:11/06/2024 Projected End date:12/18/2024 IV Micafungin 150mg [id number] Start date: 11/12/2024 Projected End Date: 12/24/2024 [...] OPAT Team Attn: Dr Kraus Fax #: [phone] Appointments: (Dr Appiah 08/02/2024 at 2.30pm) at: [facility]: [address] [place] [address] (Select Option 3 for IV Antibiotic / PICC line related issues) For questions regarding OPAT prior to discharge, reach out to the OPAT team via [employer] Secure Chat (Group: OPAT Referral Team). For all questions regarding OPAT after discharge should be directed to the OPAT Team at (Select Option 3 for IV Antibiotics/PICC Issues) between 8am-5pm. After 5 pm, or during weekends/ holidays, please call the paging block splitter operator at to reach the on-call ID [...] from the original note were not included. [facility] Department of Surgery Division of Vascular Surgery Surgery Progress Note 11/13/24 Bev Borja Subjective Subjective: HPI 64yoM PMHx COPD, T2DM, HLD, HTN, RLS, CAD s/p PCI (on Xarelto) s/p pacemaker c/b left SANDIP pseudoaneurysm s/p thrombin injection 09/21/24, CLI s/p left femoral endarterectomy with EIA/PIECE DYER stenting 10/17/24, who [facility] [...] 09/21/24, CLI s/p left femoral endarterectomy with EIA/PIECE DYER stenting 10/17/24, who [facility] [...] the findings. Cardiac Device Check - PRE-OR [facility] EP-Device Clinic: Pre-operative CIED Report Assessment and Sara-Procedural Reommendations: Name: Bev Borja Date: 10/17/2024 : 1960 Age: 64 y.o. 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 Lead integrity test [...] recommendations. Supporting reports can be found in [employer] media file. Micro: Susceptibility data from last [...] Units Date/Time Tissue Culture and Gram Stain [[id number]] (Abnormal) (Susceptibility) Collected: 11/06/24 1134 Order Status: Completed Specimen: Tissue from Other (specify site) Updated: 11/12/24 1334 Culture Moderate Growth 2+ Enterobacter cloacae complex Comment: This isolate has been identified using the FDA Approved [employer] [place] System The organism value for this result has been updated. These results have been appended to the previously preliminary verified report. Edited result: Previously reported as Gram Negative Jesus on 11/07/2024 at 1434 EDT. 2+ Streptococcus mitis/oralis group Comment: This isolate has been identified using the FDA Approved [employer] [place] System The organism value for this result has been updated. These results have been appended to the previously preliminary verified report. 2+ Pasteurella stomatis Comment: This result was determined by MALDI tof mass spectrometry using the Alai database and is for research use only. [...] stewardship team. Comprehensive GI Panel by PCR [[id number]] (Normal) Collected: 11/12/24 0950 Order Status: Completed [...] if clinically indicated. Clostridiodes (Clostridium) difficile PCR [[id number]] (Normal) Collected: 11/12/24 0950 Order Status: Completed [...] high complexity clinical laboratory testing. Anaerobic Culture [[id number]] Collected: 11/06/24 1128 Order Status: Completed Specimen: Swab from Other (specify site) Updated: 11/12/24 1118 Culture No growth at day 4 Fungal Culture, Tissue and ISIDRO [[id number]] (Abnormal) Collected: 11/06/24 1134 Order Status: Completed Specimen: Tissue from Other (specify site) Updated: 11/12/24 1033 Culture Reading Mycological 4 Weeks Rare Hobart Sana parapsilosis Comment: This isolate has been identified using the FDA Approved [employer] [place] System The organism value for this result has been updated. These results have been appended to the previously preliminary verified report. Edited result: Previously reported as Yeast on 11/11/2024 at 1317 EDT. ISIDRO No fungal elements seen Additional Susceptibilities and/or Identification [[id number]] Collected: 11/11/24 1240 Order Status: Completed Specimen: Tissue from Wound (specify site): Additional Susceptibilities and/or Identification [[id number]] Collected: 11/11/24 1238 Order Status: Completed Specimen: Tissue from Wound (specify site): Additional Susceptibilities and/or Identification [[id number]] Collected: 11/11/24 1237 Order Status: Completed Specimen: Tissue from Wound (specify site): AFB Culture, Non Respiratory Source and Acid Fast Stain [[id number]] Collected: 11/06/24 1134 Order Status: Completed Specimen: Tissue from Other (specify site) Updated: 11/11/24 0938 AFB Culture No Mycobacterial Growth <1 Week Acid Fast Stain No acid fast bacilli seen Blood Culture (Aerobic/Anaerobet Set) [[id number]] Collected: 11/06/24106 Order Status: Completed Specimen: Blood from AC, Left Updated: 11/11/24 0301 Culture No growth at day 5 Blood Culture (Aerobic/Anaerobet Set) [[id number]] Collected: 11/06/24106 Order Status: Completed Specimen: Blood [...] [facility]. [facility] [...] to stay a facility, plan [facility] daily IV abx. Plan [...] tablet 1,000 mg 1,000 mg Oral q6h [facility] Anthony Reyes MD 1,000 mg [...] Prevent or Manage Pain Flowsheets (Taken 11/11/2024 0221 by Jonathan Vale RN) Sensory Stimulation Regulation: care clustered lighting decreased quiet environment promoted Medication Review/Management: medications reviewed * Consults - Anabel Ovalle RD - 11/12/2024 9:59 AM EDT Adult Nutrition Evaluation Note Bev Borja 64 y.o. male CSN: [id number] Room/Bed 682/682B Nutrition evaluation type: assessment Reason for evaluation: LOS Hospital course: 64 y.o. male with PMHx significant for COPD, CAD s/p PCI (on Xarelto) s/p pacemaker c/b left SANDIP pseudoaneurysm s/p thrombin injection 09/21/24, chronic limb ischemia s/p left femoralendarterectomy with external iliac/common femoral artery stenting 10/17/24, T2DM, HLD, HTN, RLS who presented to the [facility] on 11/05/2024 with problems with his wounds. [...] (Room air) O2 Delivery Method: Face tent [place] Coma Scale Score: 15 Loi Scale Score: [...] (194 lb 3.6 oz) BMI (Calculated): 30.41 [place] Body Weight (kg): 67.3 Percent [place] Body Weight: 131 Adjusted Body Weight (kg): [...] oz) Estimated Needs: Kcal/ K-30 Kcal Provided: 3664-7800 Kcal Needs Based On: Adjusted weight Gm Protein/ Kg : 1.2-1.5 Protein Provided: 87-108 Protein Needs Based On: Adjusted weight Metabolic Cart Study Results: Current Nutrition Intake: Diet Order: Adult Diet Diet Texture: Regular Adult Carbohydrate Restriction: Consistent CHO 1 (2303-5449 Jatinder, 65 g/meal) Percent Meals Eaten (%): avg 63% x 6 emals Diet Experience and Nutrition History: Diet Education Provided: Will monitor Pertinent home medications: clopidogrel, docusate sodium, Lantus, Humalog, lisinopril, metoprolol tartrate, pravastatin, rivaroxaban, ropinirole, tamsulosin Baptism needs: Nutrition Focused Physical Exam: Physical exam [...] ENDARTERECTOMY N/A 2017 Endarterectomy Carotid Artery from [employer] CORONARY ANGIOPLASTY Left Coronary Angiography With Concomitant Left Heart Catheterization from [employer] CORONARY ARTERY BYPASS GRAFT N/A 2018 3V ELBOW SURGERY Right ENDARTERECTOMY Left 10/17/2024 common/SFA/Profun[employer] thromboendarterectomy, EIA/PIECE DYER stent HERNIA REPAIR KNEE ARTHROSCOPY Left VASCULAR SURGERY Left 09/21/2024 PIECE DYER pseudoaneurym injection [3] Social History Tobacco Use [...] 09/21/24, CLI s/p left femoral endarterectomy with EIA/PIECE DYER stenting 10/17/24, who [facility] [...] 09/21/24, CLI s/p left femoral endarterectomy with EIA/PIECE DYER stenting 10/17/24, who [facility] [...] the findings. Cardiac Device Check - [facility] EP-Device Clinic: Pre-operative CIED Report Assessment and Sara-Procedural Reommendations: Name: Bev Borja Date: 10/17/2024 : 1960 Age: 64 y.o. 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 Lead integrity test [...] recommendations. Supporting reports can be found in [employer] media file. Micro: Susceptibility data from last [...] Units Date/Time Tissue Culture and Gram Stain [[id number]] (Abnormal) (Susceptibility) Collected: 11/06/24 1134 Order Status: Completed Specimen: Tissue from Other (specify site) Updated: 11/12/24 1334 Culture Moderate Growth 2+ Enterobacter cloacae complex Comment: This isolate has been identified using the FDA Approved [employer] [place] System The organism value for this result has been updated. These results have been appended to the previously preliminary verified report. Edited result: Previously reported as Gram Negative Jesus on 11/07/2024 at 1434 EDT. 2+ Streptococcus mitis/oralis group Comment: This isolate has been identified using the FDA Approved [employer] [place] System The organism value for this result has been updated. These results have been appended to the previously preliminary verified report. 2+ Pasteurella stomatis Comment: This result was determined by MALDI tof mass spectrometry using the Alai database and is for research use only. [...] stewardship team. Comprehensive GI Panel by PCR [[id number]] (Normal) Collected: 11/12/24 0950 Order Status: Completed [...] if clinically indicated. Clostridiodes (Clostridium) difficile PCR [[id number]] (Normal) Collected: 11/12/24 0950 Order Status: Completed [...] high complexity clinical laboratory testing. Anaerobic Culture [[id number]] Collected: 11/06/24 1128 Order Status: Completed Specimen: Swab from Other (specify site) Updated: 11/12/24 1118 Culture No growth at day 4 Fungal Culture, Tissue and ISIDRO [[id number]] (Abnormal) Collected: 11/06/24 1134 Order Status: Completed Specimen: Tissue from Other (specify site) Updated: 11/12/24 1033 Culture Reading Mycological 4 Weeks Rare Hobart Sana parapsilosis Comment: This isolate has been identified using the FDA Approved [employer] [place] System The organism value for this result has been updated. These results have been appended to the previously preliminary verified report. Edited result: Previously reported as Yeast on 11/11/2024 at 1317 EDT. ISIDRO No fungal elements seen Additional Susceptibilities and/or Identification [[id number]] Collected: 11/11/24 1240 Order Status: Completed Specimen: Tissue from Wound (specify site): Additional Susceptibilities and/or Identification [[id number]] Collected: 11/11/24 1238 Order Status: Completed Specimen: Tissue from Wound (specify site): Additional Susceptibilities and/or Identification [[id number]] Collected: 11/11/24 1237 Order Status: Completed Specimen: Tissue from Wound (specify site): AFB Culture, Non Respiratory Source and Acid Fast Stain [[id number]] Collected: 11/06/24 1134 Order Status: Completed Specimen: Tissue from Other (specify site) Updated: 11/11/24 0938 AFB Culture No Mycobacterial Growth <1 Week Acid Fast Stain No acid fast bacilli seen Blood Culture (Aerobic/Anaerobet Set) [[id number]] Collected: 11/06/24106 Order Status: Completed Specimen: Blood from AC, Left Updated: 11/11/24 0301 Culture No growth at day 5 Blood Culture (Aerobic/Anaerobet Set) [[id number]] Collected: 11/06/24106 Order Status: Completed Specimen: Blood [...] 11/06, pt went to the [facility] vascular surgery for left groin exploration [...] want to stay a facility, plan for [facility] daily IV abx. Plan for [...] tablet 1,000 mg 1,000 mg Oral q6h [facility] Anthony Reyes MD 1,000 mg at 11/12/24 1356 aspirin chewable tablet 81 mg 81 mg Oral Daily Reid Daniels MD 81 mg at 11/12/24 0938 cefepime (Maxipime) 2 g in sodium chloride 0.9% 100 mL IVPB (vial adapter required) 2 g [id number] Reid Daniels MD 36.7 mL/hr at 11/12/24 [...] 0- 10 Units Subcutaneous TID with meals eRid Daniels MD 4 Units at 11/12/24 135 [...] PM Anthony Reyes MD 0.4 mg at [id number] Vancomycin HCl in NaCl (Vancocin) IVPB 1,000 [...] send him home on micafungin as Rare Hobart Sana parapsilosis grew and we do not [...] portions of the procedure(s) and immediately available [facility] services the entire duration. See resident note for details. * Progress Notes - Mariia Monterroso - 11/11/2024 1:10 PM EDT Case Management Adult Progress Note Bev Borja 64 y.o. male CSN: [id number] Admission: 11/05/2024 9:45 PM Primary Problem: Wound infection Patient refusing inpatient placement for IV abx. [facility] infusion clinic can provide treatment. Face sheet, IV abx orders, and order for PICC care/labs/dressing changes need to be faxed to [phone]. Voicemail left with wound care clinic. Wound vac approved per , delivery pending. Crysll continue to follow. Mariia Monterroso OUTSIDE PLANT SUPERVISOR * Progress Notes - Dotty [...] the findings. Cardiac Device Check - PRE-[facility] EP-Device Clinic: Pre-operative CIED Report Assessment and Sara-Procedural Reommendations: Name: Bev Borja Date: 10/17/2024 : 1960 Age: 64 y.o. 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 Lead integrity test [...] recommendations. Supporting reports can be found in [employer] media file. Micro: Susceptibility data from last [...] Non Respiratory Source and Acid Fast Stain [[id number]] Collected: 11/06/24 1134 Order Status: Completed Specimen: Tissue from Other (specify site) Updated: 11/11/24 0938 AFB Culture No Mycobacterial Growth <1 Week Acid Fast Stain No acid fast bacilli seen Blood Culture (Aerobic/Anaerobet Set) [[id number]] Collected: 11/06/24106 Order Status: Completed Specimen: Blood from AC, Left Updated: 11/11/24 0301 Culture No growth at day 5 Blood Culture (Aerobic/Anaerobet Set) [[id number]] Collected: 11/06/24 010 Order Status: Completed Specimen: Blood from Hand, Right Updated: 11/11/24 0249 Culture No growth at day 5 Anaerobic Culture [[id number]] Collected: 11/06/24 1128 Order Status: Completed Specimen: Swab from Other (specify site) Updated: 11/10/24 1441 Culture No growth at day 4 Routine Culture and Gram Stain [[id number]] Collected: 11/06/24 1128 Order Status: Completed Specimen: Swab from Other (specify site) Updated: 11/10/24 1124 Culture No growth at day 4 Gram Stain Result No organisms seen No polymorphonuclear leukocytes seen Anaerobic Culture [[id number]] (Abnormal) Collected: 11/06/24 112 Order Status: Completed Specimen: Swab from Other (specify site) Updated: 11/10/24 0718 Culture No anaerobes isolated Mixed skin clifton Comment: The organism value for this result has been updated. These results have been appended to the previously preliminary verified report. Narrative: Mixed Skin [place] includes Streptococcus mitis/oralis group and Staphylococcus Pseudintermedius Anaerobic Culture [[id number]] (Abnormal) Collected: 11/06/24 1134 Order Status: Completed [...] [facility]SH. [facility] [...] mL IVPB (vial adapter required) 2 g [id number] Reid Daniels MD 36.7 mL/hr at 11/11/24 [...] 09/21/24, CLI s/p left femoral endarterectomy with EIA/PIECE DYER stenting 10/17/24, [facility] [...] 09/21/24, CLI s/p left femoral endarterectomy with EIA/PIECE DYER stenting 10/17/24, who [facility] [...] Edited by: Reid Daniels MD at 11/11/2024 0811 Dispo: Continue Current Level of Care Reid [...] to follow, Submitted by: Kalpesh Lord PharmD, [facility] 11/10/2024 12:45 PM * Care [...] 09/21/24, CLI s/p left femoral endarterectomy with EIA/PIECE DYER stenting 10/17/24, who [facility] [...] 09/21/24, CLI s/p left femoral endarterectomy with EIA/PIECE DYER stenting 10/17/24, who [facility] [...] Barraza RN Authorized by: Nathaly Nowak MD [place] Protocol: Verbal consent obtained?: Yes Written consent [...] selection rationale: Left pacemaker Catheter Lot #: [id number] 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 Patient reports he went to [facility] 12th floor via w/c yesterday [...] Mobility: Ambulatory- community (was utilizing scooter at [employer] since discharge) Mobility [place]: Independent gait with device History of Falls: [...] Mobility Bed Mobility Exam: Scooting/Bridging Level of [place]: Modified independence Bed Mobility Exam: Supine to Sit Level of [place]: Modified [place] Transfers Transfer Exam: Sit to stand Level of [place]: Modified independence Assistive Device: Rollator Transfer Exam: Stand to Sit Level of [place]: Modified independence Assistive Device: Rollator Ambulation Device: [...] maintain/improve functional mobility and endurance. Standardized Assessments [facility] 6-Clicks Mobility Assessment Difficulty patient [...] 3-5 steps with a railing?: A little [facility] 6-Clicks Mobility Assessment Total : [...] Mobility Ambulatory- community (was utilizing scooter at [employer] since discharge) Mobility [place] Independent gait with device History of Falls [...] distal to knee) BED MOBILITY Level of [place] Physical/Non-physical Assist Adaptive Equipment Utilized Scooting/ Bridging Modified independence Supine to Sit Modified [place] TRANSFERS Level of [place] Physical/Non-physical Assist Adaptive Equipment Utilized Sit to Stand Modified independence Rollator Stand to sit Modified independence Rollator Toilet Transfer Modified independence Grab bar FUNCTIONAL MOBILITY Ambulation Modified independent 200ft x2 with seated rest break between bouts; RPE 5-7/10. Cues forsafety with rollator brakes. Rollator Comments BALANCE Postural Appearance Posture: Within Functional Limits Level of [place] Balance Support Static Sit Independent Feet supported Dynamic Sit Independent Feet supported Static Stand Independent Right upper extremity support, Left upper extremity support (via rollator) Dynamic Stand Independent Right upper extremity support, Left upper extremity support (via rollator) STANDARDIZED ASSESSMENTS [facility] 6-Click Daily Activities Help from Other: Don/Doff Regular Lower Body Clothings: None Help From Other: Bathing: None Help From Other: Toileting: None Help From Other: Don/Doff Upper Body Clothings: None Help From Other: Grooming: None Help From Other: Eating Meals: None [facility] 6 Click - Daily Activities Score: [...] needed areas of treatment space. Level of [place] Interventions Grooming Modified independent Standing sinkside Pt [...] Note Bev Borja 64 y.o. male CSN: [id number] Admission: 11/05/2024 9:45 PM Primary Problem: Wound [...] follow and assist as needed. Mariia Monterroso OUTSIDE PLANT SUPERVISOR * Progress Notes - Bianca [...] to follow, Submitted by: Bianca Knight, ElizabethD, [facility] 11/08/2024 11:15 [...] 09/21/24, CLI s/p left femoral endarterectomy with EIA/PIECE DYER stenting 10/17/24, who [facility] [...] completed 10/19 Pseudoaneurysm of left femoral artery ([facility]) COPD (chronic obstructive pulmonary disease) ([facility]) Overview Signed 10/18/2021 7:30 PM by Gallo Gallardo MD Not on home inhalers A-fib ([facility]) Overview Addendum 10/19/2021 10:39 AM by Giovanna Junior APRN Hold anticoagulation Metoprolol restarted BPH (benign prostatic hyperplasia) Overview Addendum 10/19/2021 10:41 AM by Giovanna Junior APRN Flomax restarted Subarachnoid hemorrhage ([facility]) Overview Addendum 10/20/2021 8:23 AM by Giovanna Junior APRN Left frontal, right occipital NSGY consulted - Repeat CTH showing slight worsening of tSAH - no need for further imaging, will continue to follow clinically 10/20: spoke with NSGY via phone and stated to hold ASA and Xarelto for 2 weeks Closed compression fracture of L3 lumbar vertebra, initial encounter ([facility]) Overview Signed 10/18/2021 7:35 [...] 09/21/24, CLI s/p left femoral endarterectomy with EIA/PIECE DYER stenting 10/17/24, who [facility] [...] 1960 Age: 64 y.o. 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 Lead integrity test [...] recommendations. Supporting reports can be found in [employer] media file. Micro: Susceptibility data from last 90 days. Collected Specimen Info Organism 11/06/24 Tissue from Other (specify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 [facility] Specimen Type POC Capillary 11/12/2024 5:10 PM EDT [facility] Blood Capillary blood specimen / Unknown 11/12/2024 5:08 PM EDT 11/12/2024 5:10 PM EDT us Nathaly Nowak MD LAB POINT OF CARE TE ST DOCKED DEVICE UNSOLICITED RESULTS Final Result Performing Organization Address City/[facility] Co de Phone Number [facility] [address] [place] [address] * (ABNORMAL) POCT glucose meter (11/12/2024 12:36 PM EDT) Pathologist [facility] POCT Glucose 224(H) 74 - 99 mg/dL [...] Comment 11/12/2024 12:38 PM EDT [facility] Clinical Staff Rn ID Wade Feliciano Tobias 12:38 PM EDT [facility] Device ID [id number] 11/12/2024 12:38 PM EDT [facility] Specimen Type POC Capillary 11/12/2024 12:38 PM EDT [facility] Blood Capillary blood specimen / Unknown 11/12/2024 12:36 PM EDT 11/12/2024 12:38 PM EDT us Nathaly Nowak MD LAB POINT OF CARE TE ST DOCKED DEVICE UNSOLICITED RESULTS Final Result Performing Organization Address City/[facility]/ZIP Co de Phone Number [facility] [address] [place] [address] * Clostridiodes (Clostridium) difficile PCR (11/12/2024 9:50 AM EDT) [facility] C difficile PCR toxin B gene DNA Result Not Detected Not Detected 11/12/2024 11:54 AM EDT [facility] Stool Rectum structure / Unknown Non-blood Collection / Unknown 11/12/2024 9:50 AM EDT 11/12/2024 10:04 AM EDT Narrative [facility] - 11/12/2024 11:54 AM [...] MICROBIOLOGY - GENERAL ORDE LAM Final Result [facility] [address] [place] [address] * Comprehensive GI Panel by PCR (11/12/2024 9:50 AM EDT) Campylobacter PCR Result Not Detected Not Detected 11/12/2024 2:47 PM EDT [facility] Plesiomonas shigelloides PCR Result Not Detected Not Detected 11/12/2024 2:47 PM EDT [facility] Salmonella PCR Result Not Detected Not Detected 11/12/2024 2:47 PM EDT [facility] Vibrio species PCR Result Not Detected Not Detected 11/12/2024 2:47 PM EDT [facility] Vibrio cholerae PCR Result Not Detected Not Detected 11/12/2024 2:47 PM EDT [facility] Yersinia enterocolitica PCR Result Not Detected Not Detected 11/12/2024 2:47 PM EDT [facility] Enteroaggregative E. coli (EAEC) PCR Result Not Detected Not Detected 11/12/2024 2:47 PM EDT [facility] Enteropathogenic E. coli (EPEC) PCR Result Not Detected Not Detected 11/12/2024 2:47 PM EDT [facility] Enterotoxigenic E. coli (ETEC) lt/st PCR Result Not Detected Not Detected 11/12/2024 2:47 PM EDT [facility] Shiga-like Toxin-Producing E.coli (STEC) stx1/stx2 PCR Resu Not Detected Not Detected 11/12/2024 2:47 PM EDT [facility] E coli 0157 PCR Result Not Detected Not Detected 11/12/2024 2:47 PM EDT [facility] Shigella/Enteroinvas tam E. coli (EIEC) PCR Result Not Detected Not Detected 11/12/2024 2:47 PM EDT [facility] Cryptosporidium PCR Result Not Detected Not Detected 11/12/2024 2:47 PM EDT [facility] Cyclospora cayetanensis PCR Result Not Detected Not Detected 11/12/2024 2:47 PM EDT [facility] Entamoeba histolytica PCR Result Not Detected Not Detected 11/12/2024 2:47 PM EDT [facility] Giardia duodenalis (aka Giardia lamblia) PCR Result Not Detected Not Detected 11/12/2024 2:47 PM EDT [facility] Adenovirus F 40/41 PCR Result Not Detected Not Detected 11/12/2024 2:47 PM EDT [facility] Astrovirus PCR Result Not Detected Not Detected 11/12/2024 2:47 PM EDT [facility] Norovirus GI/GII PCR Result Not Detected Not Detected 11/12/2024 2:47 PM EDT [facility] Rotavirus A PCR Result Not Detected Not Detected 11/12/2024 2:47 PM EDT [facility] Sapovirus PCR Result Not Detected Not Detected 11/12/2024 2:47 PM EDT [facility] Stool Rectum structure / Unknown Non-blood Collection / Unknown 11/12/2024 9:50 AM EDT 11/12/2024 10:04 AM EDT Narrative [facility] - 11/12/2024 2:47 PM [...] ORDE RABLES Final Result Performing Organization Address [facility]/ZIP Co de Phone Number [facility] [address] [place] [address] * C-reactive protein (11/12/2024 9:48 AM EDT) [facility] CRP, Plasma <3.0 <=8.0 mg/L 11/12/2024 10:28 AM EDT [facility] Blood Venous blood specimen / Unknown Venipuncture / Unknown 11/12/2024 9:48 AM EDT 11/12/2024 9:59 AM EDT Narrative [facility] - 11/12/2024 10:28 AM EDT This CRP test is appropriate for assessment of infection, systemic inflammation and/or tissue injury. To assess cardiovascular disease risk order high sensitivity CRP (CRPH). Nathaly Nowak MD LAB BLOOD ORDERABLES Final Resu lt Performing Organization Address [facility] Co de Phone Number [facility] [address] [place] [address] * (ABNORMAL) POCT glucose meter (11/12/2024 8:20 AM EDT) [facility] POCT Glucose 138(H) 74 - 99 mg/dL [...] Comment 11/12/2024 8:21 AM EDT [facility] Clinical Staff Rn ID Wade Feliciano 8:21 AM EDT [facility] Device ID [id number] 11/12/2024 8:21 AM EDT [facility] Specimen Type POC Capillary 11/12/2024 8:21 AM EDT [facility] Blood Capillary blood specimen / Unknown 11/12/2024 8:20 AM EDT 11/12/2024 8:21 AM EDT Nathaly Nowak MD LAB POINT OF CARE TE ST DOCKED DEVICE UNSOLICITED RESULTS Final Result Performing Organization Address [facility] Co de Phone Number [facility] [address] [place] [address] * (ABNORMAL) POCT glucose meter (11/11/2024 8:18 PM EDT) [facility] POCT Glucose 248(H) 74 - 99 mg/dL [...] Comment 11/11/2024 8:20 PM EDT [facility] Clinical Staff Rn ID Nelda Gerber 11/12/19 8:20 PM EDT [facility] Device ID [id number] 11/11/2024 8:20 PM EDT [facility] Specimen Type POC Capillary 11/11/2024 8:20 PM EDT [facility] Blood Capillary blood specimen / Unknown 11/11/2024 8:18 PM EDT 11/11/2024 8:20 PM EDT Nathaly Nowak MD LAB POINT OF CARE TE ST DOCKED DEVICE UNSOLICITED RESULTS Final Result Performing Organization Address City/[facility] Co de Phone Number [facility] [address] [place] [address] * (ABNORMAL) POCT glucose meter (11/11/2024 5:59 PM EDT) [facility] POCT Glucose 147(H) 74 - 99 mg/dL [...] Comment 11/11/2024 6:01 PM EDT [facility] Clinical Staff Rn ID Wade Feliciano 6:01 PM EDT [facility] Device ID [id number] 11/11/2024 6:01 PM EDT [facility] Specimen Type POC Capillary 11/11/2024 6:01 PM EDT [facility] Blood Capillary blood specimen / Unknown 11/11/2024 5:59 PM EDT 11/11/2024 6:01 PM EDT Nathaly Nowak MD LAB POINT OF CARE TE ST DOCKED DEVICE UNSOLICITED RESULTS Final Result Performing Organization Address City/[facility]/ZIP Co de Phone Number [facility] [address] [place] [address] * POCT glucose meter (11/11/2024 5:20 PM EDT) [facility] POCT Glucose 84 74 - 99 mg/dL [...] Comment 11/11/2024 5:22 PM EDT [facility] Clinical Staff Rn ID Wade Feliciano 5:22 PM EDT [facility] Device ID [id number] 11/11/2024 5:22 PM EDT [facility] Specimen Type POC Capillary 11/11/2024 5:22 PM EDT [facility] Blood Capillary blood specimen / Unknown 11/11/2024 5:20 PM EDT 11/11/2024 5:22 PM EDT us Nathaly Nowak MD LAB POINT OF CARE TE ST DOCKED DEVICE UNSOLICITED RESULTS Final Result [facility] [address] [place] [id number] * CA NEGATIVE PRESSURE WOUND THERAPY DME >50 SQ [...] 11/11/2024 12:10 PM EDT [facility] Clinical Staff Rn ID BradenWade 12:10 PM EDT [facility] Device ID [id number] 11/11/2024 12:10 PM EDT [facility] Specimen Type POC Capillary 11/11/2024 12:10 PM EDT [facility] Blood Capillary blood specimen / Unknown 11/11/2024 12:08 PM EDT 11/11/2024 12:10 PM EDT us Nathaly Nowak MD LAB POINT OF CARE TE ST DOCKED DEVICE UNSOLICITED RESULTS Final Result [facility] [address] [place] [address] * (ABNORMAL) POCT glucose meter (11/11/2024 9:08 [...] for testing. Comment 11/11/2024 9:09 AM EDT [facility] Clinical Staff Rn ID Wade Feliciano 9:09 AM EDT [facility] Device ID [id number] 11/11/2024 9:09 AM EDT [facility] Specimen Type POC Capillary 11/11/2024 9:09 AM EDT [facility] Blood Capillary blood specimen / Unknown 11/11/2024 9:08 AM EDT 11/11/2024 9:09 AM EDT us Nathaly Nowak MD LAB POINT OF CARE TE ST DOCKED DEVICE UNSOLICITED RESULTS Final Result Performing Organization Address City/[facility]/ZIP Co de Phone Number [facility] [address] [place] [address] * POCT glucose meter (11/11/2024 8:27 AM EDT) Pathologist [facility] POCT Glucose 87 74 - 99 mg/dL [...] 11/11/2024 8:28 AM EDT [facility] Clinical Staff Rn ID Wade Feliciano 8:28 AM EDT [facility] Device ID [id number] 11/11/2024 8:28 AM EDT [facility] Specimen Type POC Capillary 11/11/2024 8:28 AM EDT [facility] Blood Capillary blood specimen / Unknown 11/11/2024 8:27 AM EDT 11/11/2024 8:28 AM EDT us Nathaly Nowak MD LAB POINT OF CARE TE ST DOCKED DEVICE UNSOLICITED RESULTS Final Result [facility] [address] [place] [address] * (ABNORMAL) Basic Metabolic Panel, Plasma (11/11/2024 1:12 AM EDT) Glucose, Plasma 122(H) 74 - 99 mg/dL 11/11/2024 1:12 AM EDT [facility] BUN, Plasma 10 8 - 23 mg/dL 11/11/2024 1:12 AM EDT [facility] Creatinine, Plasma 0.82 0.70 - 1.20 mg/dL 11/11/2024 1:12 AM EDT [facility] BUN/Creatinine Ratio 12 11/11/2024 1:12 AM EDT [facility] Sodium, Plasma 137 136 - 145 mmol/L 11/11/2024 1:12 AM EDT [facility] Potassium, Plasma 3.9 3.6 - 4.9 mmol/L 11/11/2024 1:12 AM EDT [facility] Chloride, Plasma 110(H) 97 - 107 mmol/L 11/11/2024 1:12 AM EDT [facility] CO2, Plasma 20(L) 22 - 29 mmol/L 11/11/2024 1:12 AM EDT [facility] Anion Gap 7 6 - 16 mmol/L 11/11/2024 1:12 AM EDT [facility] Total Calcium, Plasma 7.6(L) 8.9 - 10.2 mg/dL 11/11/2024 1:12 AM EDT [facility] eGFRcr 97.5 mL/min/1.7 3m*2 11/11/2024 1:12 AM EDT [facility] Comment:Reported eGFRcr in m L/min/1.73m2 is based the CKD-EPI 2020 equation that does not use a race coefficient. Blood Venous blood specimen / Unknown 11/11/2024 12:42 AM EDT us Nathaly Nowak MD LAB BLOOD ORDERABLES Final Resu lt [facility] [address] [place] [address] * (ABNORMAL) CBC W/O Differential (11/11/2024 12:56 AM EDT) WBC Count 11.83(H) 3.70 - 10.30 10*3/uL LAB HEMATOLOGY METHOD 11/11/2024 12:56 AM EDT [facility] RBC Count 2.97(L) 4.60 - 6.10 10*6/uL LAB HEMATOLOGY METHOD 11/11/2024 12:56 AM EDT [facility] HGB 8.9(L) 13.7 - 17.5 g/dL LAB HEMATOLOGY METHOD 11/11/2024 12:56 AM EDT [facility] HCT 27.2(L) 40.0 - 51.0 % LAB HEMATOLOGY METHOD 11/11/2024 12:56 AM EDT [facility] Platelet Count 444(H) 155 - 369 10*3/uL LAB HEMATOLOGY METHOD 11/11/2024 12:56 AM EDT [facility] MCV 92 79 - 98 fL LAB HEMATOLOGY METHOD 11/11/2024 12:56 AM EDT [facility] MCH 30.0 26.0 - 32.0 pg LAB HEMATOLOGY METHOD 11/11/2024 12:56 AM EDT [facility] MCHC 32.7 30.7 - 35.5 g/dL LAB HEMATOLOGY METHOD 11/11/2024 12:56 AM EDT [facility] RDW 13.3 11.5 - 14.5 % LAB HEMATOLOGY METHOD 11/11/2024 12:56 AM EDT [facility] MPV 9.0 8.8 - 12.5 fL LAB HEMATOLOGY METHOD 11/11/2024 12:56 AM EDT [facility] nRBC 0.0 <=0.0 per 100 WBCs LAB HEMATOLOGY METHOD 11/11/2024 12:56 AM EDT [facility] Blood Venous blood specimen / Unknown 11/11/2024 12:42 AM EDT Nathaly Nowak MD LAB BLOOD ORDERABLES Final Resu lt Performing Organization Address City/[facility]/ZIP Co de Phone Number [facility] [address] [place] [address] * (ABNORMAL) POCT glucose meter (11/10/2024 8:25 [...] Comment 11/10/2024 8:28 PM EDT [facility] Clinical Staff Rn ID Nelda Gerber 11/11/19 8:28 PM EDT [facility] Device ID [id number] 11/10/2024 8:28 PM EDT [facility] Specimen Type POC Capillary 11/10/2024 8:28 PM EDT [facility] Blood Capillary blood specimen / Unknown 11/10/2024 8:25 PM EDT 11/10/2024 8:28 PM EDT us Nathaly Nowak MD LAB POINT OF CARE TE ST DOCKED DEVICE UNSOLICITED RESULTS Final Result Performing Organization Address City/[facility]/ZIP Co de Phone Number [facility] [address] [place] [address] * (ABNORMAL) POCT glucose meter (11/10/2024 4:45 [...] 11/10/2024 4:47 PM EDT [facility] Clinical Staff Rn ID Esperanza Parks 11/10/2024 4:47 PM EDT [facility] Device ID [id number] 11/10/2024 4:47 PM EDT [facility] Specimen Type POC Capillary 11/10/2024 4:47 PM EDT [facility] Blood Capillary blood specimen / Unknown 11/10/2024 4:45 PM EDT 11/10/2024 4:47 PM EDT Nathaly Nowak MD LAB POINT OF CARE TE ST DOCKED DEVICE UNSOLICITED RESULTS Final Result [facility] [address] [place] [address] * (ABNORMAL) POCT glucose meter (11/10/2024 12:13 PM EDT) [facility] POCT Glucose 131(H) 74 - 99 mg/dL [...] 11/10/2024 12:14 PM EDT [facility] Clinical Staff Rn ID Esperanza Parks 11/10/2024 12:14 PM EDT [facility] Device ID [id number] 11/10/2024 12:14 PM EDT [facility] Specimen Type POC Capillary 11/10/2024 12:14 PM EDT [facility] Blood Capillary blood specimen / Unknown 11/10/2024 12:13 PM EDT 11/10/2024 12:14 PM EDT us Nathaly Nowak MD LAB POINT OF CARE TE ST DOCKED DEVICE UNSOLICITED RESULTS Final Result Performing Organization Address [facility] Co de Phone Number [facility] [address] [place] [address] * Vancomycin, Peak, Plasma Please draw ~2 hours after 0800 dose of vancomycin finishes infusing. Consider obtaining level via peripheral stick. If peripheral stick is not feasible, please ensure that line is flushed well prior to drawing level. Than... (11/10/2024 10:56 AM EDT) [facility] Vancomycin, Peak, Plasma 23.8 20.0 - 40.0 ug/mL 11/10/2024 11:25 AM EDT [facility] Blood Venous blood specimen / Unknown Venipuncture / Unknown 11/10/2024 10:56 AM EDT 11/10/2024 11:00 AM EDT Narrative [facility] - 11/10/2024 11:25 AM EDT Therapeutic Peak level: 20-40ug/mL Supra-therapeutic Peak level: >40 ug/mL us Abigail Seay MD LAB BLOOD ORDERABLES Final Res ult Performing Organization Address [facility] de Phone Number [facility] [address] [place] [address] * (ABNORMAL) POCT glucose meter (11/10/2024 8:03 AM EDT) [facility] POCT Glucose 174(H) 74 - 99 mg/dL 11/10/2024 8:04 AM EDT [facility] Comment:Accuracy of a glucos e result [...] Comment 11/10/2024 8:04 AM EDT [facility] Clinical Staff Rn ID Esperanza Parks 11/10/2024 8:04 AM EDT [facility] Device ID [id number] 11/10/2024 8:04 AM EDT [facility] Specimen Type POC Capillary 11/10/2024 8:04 AM EDT [facility] Blood Capillary blood specimen / Unknown 11/10/2024 8:03 AM EDT 11/10/2024 8:04 AM EDT us Nathaly Nowak MD LAB POINT OF CARE TE ST DOCKED DEVICE UNSOLICITED RESULTS Final Result Performing Organization Address [facility] Co de Phone Number [facility] [address] [place] [address] * Vancomycin, Trough, Plasma Please draw ~30 minutes prior to dose due at 0800 on 11/10. Please do NOThold dose awaiting level to return. Consider obtaining level via peripheral stick. If peripheral stick is not feasible, please ensure that line is... (11/10/2024 7:27 AM EDT) Vancomycin, Trough, Plasma 16.2 10.0 - 20.0 ug/mL 11/10/2024 8:24 AM EDT [facility] Blood Venous blood specimen / Unknown Venipuncture / Unknown 11/10/2024 7:27 AM EDT 11/10/2024 7:51 AM EDT Narrative [facility] - 11/10/2024 8:24 AM EDT Therapeutic Trough level: 10-20ug/mL Supra-therapeutic Trough level: >20 ug/mL us Abigail Seay MD LAB BLOOD ORDERABLES Final Res ult Performing Organization Address City/[facility]/ZIP Co de Phone Number [facility] [address] [place] [address] * (ABNORMAL) CBC and Differential (11/10/2024 12:31 AM EDT) WBC Count 10.80(H) 3.70 - 10.30 10*3/uL LAB HEMATOLOGY METHOD 11/10/2024 12:53 AM EDT [facility] RBC Count 3.06(L) 4.60 - 6.10 10*6/uL LAB HEMATOLOGY METHOD 11/10/2024 12:53 AM EDT [facility] HGB 9.1(L) 13.7 - 17.5 g/dL LAB HEMATOLOGY METHOD 11/10/2024 12:53 AM EDT [facility] HCT 28.0(L) 40.0 - 51.0 % LAB HEMATOLOGY METHOD 11/10/2024 12:53 AM EDT [facility] Platelet Count 501(H) 155 - 369 10*3/uL LAB HEMATOLOGY METHOD 11/10/2024 12:53 AM EDT [facility] MCV 92 79 - 98 fL LAB HEMATOLOGY METHOD 11/10/2024 12:53 AM EDT [facility] MCH 29.7 26.0 - 32.0 pg LAB HEMATOLOGY METHOD 11/10/2024 12:53 AM EDT [facility] MCHC 32.5 30.7 - 35.5 g/dL LAB HEMATOLOGY METHOD 11/10/2024 12:53 AM EDT [facility] RDW 13.2 11.5 - 14.5 % LAB HEMATOLOGY METHOD 11/10/2024 12:53 AM EDT [facility] MPV 8.8 8.8 - 12.5 fL LAB HEMATOLOGY METHOD 11/10/2024 12:53 AM EDT [facility] nRBC 0.0 <=0.0 per 100 WBCs LAB HEMATOLOGY METHOD 11/10/2024 12:53 AM EDT [facility] Differential Type Automated LAB HEMATOLOGY METHOD 11/10/2024 12:53 AM EDT [facility] Neutrophils % 77 % LAB HEMATOLOGY METHOD 11/10/2024 12:53 AM EDT [facility] Lymphocytes % 13 % LAB HEMATOLOGY METHOD 11/10/2024 12:53 AM EDT [facility] Monocytes % 8 % LAB HEMATOLOGY METHOD 11/10/2024 12:53 AM EDT [facility] Eosinophils % 1 % LAB HEMATOLOGY METHOD 11/10/2024 12:53 AM EDT [facility] Basophils % 0 % LAB HEMATOLOGY METHOD 11/10/2024 12:53 AM EDT [facility] Immature Granulocytes % 1 % LAB HEMATOLOGY METHOD 11/10/2024 12:53 AM EDT [facility] Neutrophils Absolute 8.32(H) 1.60 - 6.10 10*3/uL LAB HEMATOLOGY METHOD 11/10/2024 12:53 AM EDT [facility] Lymphocytes Absolute 1.40 1.20 - 3.90 10*3/uL LAB HEMATOLOGY METHOD 11/10/2024 12:53 AM EDT [facility] Monocytes Absolute 0.89 0.30 - 0.90 10*3/uL LAB HEMATOLOGY METHOD 11/10/2024 12:53 AM EDT [facility] Eosinophils Absolute 0.09 0.00 - 0.50 10*3/uL LAB HEMATOLOGY METHOD 11/10/2024 12:53 AM EDT [facility] Basophils Absolute 0.04 0.00 - 0.10 10*3/uL LAB HEMATOLOGY METHOD 11/10/2024 12:53 AM EDT [facility] Immature Granulocytes Absolute 0.06 0.00 - 0.06 10*3/uL LAB HEMATOLOGY METHOD 11/10/2024 12:53 AM EDT [facility] Blood Venous blood specimen / Unknown Venipuncture / Unknown 11/10/2024 12:31 AM EDT 11/10/2024 12:37 AM EDT Narrative [facility] - 11/10/2024 12:53 AM EDT Therapeutic decision making should be based on absolute values, rather than percentages. us Nathaly Nowak MD LAB BLOOD ORDERABLES Final Resu lt [facility] [address] [place] [address] * (ABNORMAL) Comprehensive Metabolic Panel, Plasma (11/10/2024 12:31 AM EDT) Glucose, Plasma 185(H) 74 - 99 mg/dL 11/10/2024 1:05 AM EDT [facility] BUN, Plasma 9 8 - 23 mg/dL 11/10/2024 1:05 AM EDT [facility] Creatinine, Plasma 0.72 0.70 - 1.20 mg/dL 11/10/2024 1:05 AM EDT [facility] BUN/Creatinine Ratio 13 11/10/2024 1:05 AM EDT [facility] Sodium, Plasma 135(L) 136 - 145 mmol/L 11/10/2024 1:05 AM EDT [facility] Potassium, Plasma 4.0 3.6 - 4.9 mmol/L 11/10/2024 1:05 AM EDT [facility] Chloride, Plasma 106 97 - 107 mmol/L 11/10/2024 1:05 AM EDT [facility] CO2, Plasma 19(L) 22 - 29 mmol/L 11/10/2024 1:05 AM EDT [facility] Anion Gap 10 6 - 16 mmol/L 11/10/2024 1:05 AM EDT [facility] Total Calcium, Plasma 7.8(L) 8.9 - 10.2 mg/dL 11/10/2024 1:05 AM EDT [facility] Total Protein 5.6(L) 6.3 - 7.9 g/dL 11/10/2024 1:05 AM EDT [facility] Albumin, Plasma 3.1(L) 3.5 - 5.2 g/dL 11/10/2024 1:05 AM EDT [facility] AST, Plasma 33 10 - 50 U/L 11/10/2024 1:05 AM EDT [facility] ALT, Plasma 25 10 - 50 U/L 11/10/2024 1:05 AM EDT [facility] Alkaline Phosphatase, Plasma 108 40 - 115 U/L 11/10/2024 1:05 AM EDT [facility] Total Bilirubin, Plasma <0.2(L) 0.2 - 1.1 mg/dL 11/10/2024 1:05 AM EDT [facility] eGFRcr 101.4 mL/min/1.7 3m*2 11/10/2024 1:05 AM EDT [facility] Comment:Reported eGFRcr in m L/min/1.73m2 is based the CKD-EPI 2020 equation that does not use a race coefficient. Blood Venous blood specimen / Unknown Venipuncture / Unknown 11/10/2024 12:31 AM EDT 11/10/2024 12:37 AM EDT us Nathaly Nowak MD LAB BLOOD ORDERABLES Final Resu lt [facility] [address] [place] [address] * (ABNORMAL) POCT glucose meter (11/09/2024 8:04 PM EDT) [facility] POCT Glucose 114(H) 74 - 99 mg/dL [...] Comment 11/09/2024 8:06 PM EDT [facility] Clinical Staff Rn ID Maximiliano Hansen II 11/09/2024 8:06 PM EDT [facility] Device ID [id number] 11/09/2024 8:06 PM EDT [facility] Specimen Type POC Capillary 11/09/2024 8:06 PM EDT [facility] Blood Capillary blood specimen / Unknown 11/09/2024 8:04 PM EDT 11/09/2024 8:06 PM EDT Nathaly Nowak MD LAB POINT OF CARE TE ST DOCKED DEVICE UNSOLICITED RESULTS Final Result Performing Organization Address [facility] Co de Phone Number [facility] [address] [place] [address] * (ABNORMAL) POCT glucose meter (11/09/2024 4:36 PM EDT) [facility] POCT Glucose 166(H) 74 - 99 mg/dL [...] 11/09/2024 4:38 PM EDT [facility] Clinical Staff Rn ID Kristian Sosa 11/09/2024 4:38 PM EDT [facility] Device ID [id number] 11/09/2024 4:38 PM EDT [facility] Specimen Type POC Capillary 11/09/2024 4:38 PM EDT [facility] Blood Capillary blood specimen / Unknown 11/09/2024 4:36 PM EDT 11/09/2024 4:38 PM EDT Nathaly Nowak MD LAB POINT OF CARE TE ST DOCKED DEVICE UNSOLICITED RESULTS Final Result [facility] [address] [place] [address] * PICC SINGLE LUMEN ([employer] L[employer]) (11/09/2024 1:11 PM EDT) Narrative Estefani Barraza RN - 11/09/2024 1:11 PM EDT Estefani Barraza RN 11/09/2024 1:12 PM Insert PICC line Date/Time: 11/09/2024 1:11 PM Performed by: Estefani Barraza RN Authorized by: Nathaly Nowak MD [place] Protocol: Verbal consent obtained?: Yes Written consent [...] selection rationale: Left pacemaker Catheter Lot #: [id number] 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[employer] 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 placed: Single lumen Catheter size: 4 [...] Comment 11/09/2024 11:51 AM EDT [facility] Clinical Staff Rn ID Kristian Sosa 11/09/2024 11:51 AM EDT [facility] Device ID [id number] 11/09/2024 11:51 AM EDT [facility] Specimen Type POC Capillary 11/09/2024 11:51 AM EDT [facility] Blood Capillary blood specimen / Unknown 11/09/2024 11:50 AM EDT 11/09/2024 11:51 AM EDT Nathaly Nowak MD LAB POINT OF CARE TE ST DOCKED DEVICE UNSOLICITED RESULTS Final Result [facility] [address] [place] [address] * (ABNORMAL) POCT glucose meter (11/09/2024 8:14 [...] Comment 11/09/2024 8:15 AM EDT [facility] Clinical Staff Rn ID Kristian Sosa 11/09/2024 8:15 AM EDT [facility] Device ID [id number] 11/09/2024 8:15 AM EDT [facility] Specimen Type POC Capillary 11/09/2024 8:15 AM EDT [facility] Blood Capillary blood specimen / Unknown 11/09/2024 8:14 AM EDT 11/09/2024 8:15 AM EDT us Nathaly Nowak MD LAB POINT OF CARE TE ST DOCKED DEVICE UNSOLICITED RESULTS Final Result Performing Organization Address City/State/[facility] Co de Phone Number [facility] [address] [place] [address] * (ABNORMAL) CBC and Differential (11/09/2024 4:15 AM EDT) WBC Count 10.27 3.70 - 10.30 10*3/uL LAB HEMATOLOGY METHOD 11/09/2024 4:26 AM EDT [facility] RBC Count 3.14(L) 4.60 - 6.10 10*6/uL LAB HEMATOLOGY METHOD 11/09/2024 4:26 AM EDT [facility] HGB 9.2(L) 13.7 - 17.5 g/dL LAB HEMATOLOGY METHOD 11/09/2024 4:26 AM EDT [facility] HCT 28.3(L) 40.0 - 51.0 % LAB HEMATOLOGY METHOD 11/09/2024 4:26 AM EDT [facility] Platelet Count 468(H) 155 - 369 10*3/uL LAB HEMATOLOGY METHOD 11/09/2024 4:26 AM EDT [facility] MCV 90 79 - 98 fL LAB HEMATOLOGY METHOD 11/09/2024 4:26 AM EDT [facility] MCH 29.3 26.0 - 32.0 pg LAB HEMATOLOGY METHOD 11/09/2024 4:26 AM EDT [facility] MCHC 32.5 30.7 - 35.5 g/dL LAB HEMATOLOGY METHOD 11/09/2024 4:26 AM EDT [facility] RDW 13.1 11.5 - 14.5 % LAB HEMATOLOGY METHOD 11/09/2024 4:26 AM EDT [facility] MPV 8.7(L) 8.8 - 12.5 fL LAB HEMATOLOGY METHOD 11/09/2024 4:26 AM EDT [facility] nRBC 0.0 <=0.0 per 100 WBCs LAB HEMATOLOGY METHOD 11/09/2024 4:26 AM EDT [facility] Differential Type Automated LAB HEMATOLOGY METHOD 11/09/2024 4:26 AM EDT [facility] Neutrophils % 77 % LAB HEMATOLOGY METHOD 11/09/2024 4:26 AM EDT [facility] Lymphocytes % 13 % LAB HEMATOLOGY METHOD 11/09/2024 4:26 AM EDT [facility] Monocytes % 8 % LAB HEMATOLOGY METHOD 11/09/2024 4:26 AM EDT [facility] Eosinophils % 1 % LAB HEMATOLOGY METHOD 11/09/2024 4:26 AM EDT [facility] Basophils % 0 % LAB HEMATOLOGY METHOD 11/09/2024 4:26 AM EDT [facility] Immature Granulocytes % 1 % LAB HEMATOLOGY METHOD 11/09/2024 4:26 AM EDT [facility] Neutrophils Absolute 7.97(H) 1.60 - 6.10 10*3/uL LAB HEMATOLOGY METHOD 11/09/2024 4:[address] [facility] Lymphocytes Absolute 1.32 1.20 - 3.90 10*3/uL LAB HEMATOLOGY METHOD 11/09/2024 4:26 AM EDT [facility] Monocytes Absolute 0.83 0.30 - 0.90 10*3/uL LAB HEMATOLOGY METHOD 11/09/2024 4:26 AM EDT [facility] Eosinophils Absolute 0.07 0.00 - 0.50 10*3/uL LAB HEMATOLOGY METHOD 11/09/2024 4:26 AM EDT [facility] Basophils Absolute 0.03 0.00 - 0.10 10*3/uL LAB HEMATOLOGY METHOD 11/09/2024 4:26 AM EDT [facility] Immature Granulocytes Absolute 0.05 0.00 - 0.06 10*3/uL LAB HEMATOLOGY METHOD 11/09/2024 4:26 AM EDT [facility] Blood Venous blood specimen / Unknown Venipuncture / Unknown 11/09/2024 4:15 AM EDT 11/09/2024 4:18 AM EDT Narrative [facility] - 11/09/2024 4:26 AM EDT Therapeutic decision making should be based on absolute values, rather than percentages. us Nathaly Nowak MD LAB BLOOD ORDERABLES Final Resu lt [facility] [address] [place] [address] * (ABNORMAL) Comprehensive Metabolic Panel, Plasma (11/09/2024 4:15 AM EDT) Glucose, Plasma 171(H) 74 - 99 mg/dL 11/09/2024 4:47 AM EDT [facility] BUN, Plasma 9 8 - 23 mg/dL 11/09/2024 4:47 AM EDT [facility] Creatinine, Plasma 0.67(L) 0.70 - 1.20 mg/dL 11/09/2024 4:47 AM EDT [facility] BUN/Creatinine Ratio 13 11/09/2024 4:47 AM EDT [facility] Sodium, Plasma 134(L) 136 - 145 mmol/L 11/09/2024 4:47 AM EDT [facility] Potassium, Plasma 4.1 3.6 - 4.9 mmol/L 11/09/2024 4:47 AM EDT [facility] Chloride, Plasma 104 97 - 107 mmol/L 11/09/2024 4:47 AM EDT [facility] CO2, Plasma 21(L) 22 - 29 mmol/L 11/09/2024 4:47 AM EDT [facility] Anion Gap 9 6 - 16 mmol/L 11/09/2024 4:47 AM EDT [facility] Total Calcium, Plasma 8.4(L) 8.9 - 10.2 mg/dL 11/09/2024 4:47 AM EDT [facility] Total Protein 5.8(L) 6.3 - 7.9 g/dL 11/09/2024 4:47 AM EDT [facility] Albumin, Plasma 3.2(L) 3.5 - 5.2 g/dL 11/09/2024 4:47 AM EDT [facility] AST, Plasma 18 10 - 50 U/L 11/09/2024 4:47 AM EDT [facility] ALT, Plasma 17 10 - 50 U/L 11/09/2024 4:47 AM EDT [facility] Alkaline Phosphatase, Plasma 110 40 - 115 U/L 11/09/2024 4:47 AM EDT [facility] Total Bilirubin, Plasma <0.2(L) 0.2 - 1.1 mg/dL 11/09/2024 4:47 AM EDT [facility] eGFRcr 103.6 mL/min/1.7 3m*2 11/09/2024 4:47 AM EDT [facility] Comment:Reported eGFRcr in m L/min/1.73m2 is based the CKD-EPI 2020 equation that does not use a race coefficient. Blood Venous blood specimen / Unknown Venipuncture / Unknown 11/09/2024 4:15 AM EDT 11/09/2024 4:18 AM EDT us Nathaly Nowka MD LAB BLOOD ORDERABLES Final Resu lt [facility] [address] [place] [address] * (ABNORMAL) POCT glucose meter (11/09/2024 3:30 AM EDT) POCT Glucose 160(H) 74 - 99 mg/dL 11/09/2024 3:31 AM EDT [facility] Comment:Accuracy of a glucos e result [...] Comment 11/09/2024 3:31 AM EDT [facility] Clinical Staff Rn ID Maximiliano Hansen II 11/09/2024 3:31 AM EDT [facility] Device ID [id number] 11/09/2024 3:31 AM EDT [facility] Specimen Type POC Capillary 11/09/2024 3:31 AM EDT [facility] Blood Capillary blood specimen / Unknown 11/09/2024 3:30 AM EDT 11/09/2024 3:31 AM EDT Nathaly Nowak MD LAB POINT OF CARE TE ST DOCKED DEVICE UNSOLICITED RESULTS Final Result Performing Organization Address City/[facility]/ZIP Co de Phone Number [facility] [address] [place] [address] * (ABNORMAL) POCT glucose meter (11/08/2024 7:21 [...] Comment 11/08/2024 7:22 PM EDT [facility] Clinical Staff Rn ID Maximiliano Hansen II 11/08/2024 7:22 PM EDT [facility] Device ID [id number] 11/08/2024 7:22 PM EDT [facility] Specimen Type POC Capillary 11/08/2024 7:22 PM EDT [facility] Blood Capillary blood specimen / Unknown 11/08/2024 7:21 PM EDT 11/08/2024 7:22 PM EDT Nathaly Nowak MD LAB POINT OF CARE TE ST DOCKED DEVICE UNSOLICITED RESULTS Final Result Performing Organization Address City/[facility]/ZIP Co de Phone Number [facility] [address] [place] [address] * (ABNORMAL) POCT glucose meter (11/08/2024 5:12 PM EDT) [facility] POCT Glucose 178(H) [...] Comment 11/08/2024 5:14 PM EDT [facility] Clinical Staff Rn ID Estefani Sheth 11/08/2024 5:14 PM EDT [facility] Device ID [id number] 11/08/2024 5:14 PM EDT [facility] Specimen Type POC Capillary 11/08/2024 5:14 PM EDT [facility] Blood Capillary blood specimen / Unknown 11/08/2024 5:12 PM EDT 11/08/2024 5:14 PM EDT us Nathaly Nowak MD LAB POINT OF CARE TE ST DOCKED DEVICE UNSOLICITED RESULTS Final Result Performing Organization Address City/State/[facility] Co de Phone Number [facility] [address] [place] [address] * (ABNORMAL) POCT glucose meter (11/08/2024 12:03 PM EDT) [facility] POCT Glucose 191(H) 74 - 99 mg/dL [...] Comment 11/08/2024 12:05 PM EDT [facility] Clinical Staff Rn ID Estefani Sheth 11/08/2024 12:05 PM EDT [facility] Device ID [id number] 11/08/2024 12:05 PM EDT [facility] Specimen Type POC Capillary 11/08/2024 12:05 PM EDT [facility] Blood Capillary blood specimen / Unknown 11/08/2024 12:03 PM EDT 11/08/2024 12:05 PM EDT Nathaly Nowak MD LAB POINT OF CARE TE ST DOCKED DEVICE UNSOLICITED RESULTS Final Result Performing Organization Address [facility] de Phone Number [facility] [address] [place] [address] * Vancomycin, Peak, Plasma Please draw ~2 hours after 11/08 0600 dose of vancomycin finishes infusing.Consider obtaining level via peripheral stick. If peripheral stick is not feasible, please ensure that line is flushed well prior to drawing level.... (11/08/2024 9:24 AM EDT) [facility] Vancomycin, Peak, Plasma 29.1 20.0 - 40.0 ug/mL 11/08/2024 10:31 AM EDT [facility] Blood Venous blood specimen / Unknown Venipuncture / Unknown 11/08/2024 9:24 AM EDT 11/08/2024 9:47 AM EDT Narrative [facility] - 11/08/2024 10:31 AM EDT Therapeutic Peak level: 20-40ug/mL Supra-therapeutic Peak level: >40 ug/mL Nathaly Nowak MD LAB BLOOD ORDERABLES Final Resu lt Performing Organization Address [facility] Phone Number [facility] [address] [place] [address] * (ABNORMAL) POCT glucose meter (11/08/2024 8:00 AM EDT) [facility] POCT Glucose 150(H) 74 - 99 mg/dL 11/08/2024 8:01 AM EDT [facility] Comment:Accuracy of a glucos e result [...] Comment 11/08/2024 8:01 AM EDT [facility] Clinical Staff Rn ID Estefani Sheth 11/08/2024 8:01 AM EDT [facility] Device ID [id number] 11/08/2024 8:01 AM EDT [facility] Specimen Type POC Capillary 11/08/2024 8:01 AM EDT [facility] Blood Capillary blood specimen / Unknown 11/08/2024 8:00 AM EDT 11/08/2024 8:01 AM EDT us Nathaly Nowak MD LAB POINT OF CARE TE ST DOCKED DEVICE UNSOLICITED RESULTS Final Result [facility] [address] [place] [address] * (ABNORMAL) CBC and Differential (11/08/2024 4:39 AM EDT) WBC Count 9.18 3.70 - 10.30 10*3/uL LAB HEMATOLOGY METHOD 11/08/2024 4:58 AM EDT [facility] RBC Count 3.11(L) 4.60 - 6.10 10*6/uL LAB HEMATOLOGY METHOD 11/08/2024 4:58 AM EDT [facility] HGB 9.2(L) 13.7 - 17.5 g/dL LAB HEMATOLOGY METHOD 11/08/2024 4:58 AM EDT [facility] HCT 28.9(L) 40.0 - 51.0 % LAB HEMATOLOGY METHOD 11/08/2024 4:58 AM EDT [facility] Platelet Count 485(H) 155 - 369 10*3/uL LAB HEMATOLOGY METHOD 11/08/2024 4:58 AM EDT [facility] MCV 93 79 - 98 fL LAB HEMATOLOGY METHOD 11/08/2024 4:58 AM EDT [facility] MCH 29.6 26.0 - 32.0 pg LAB HEMATOLOGY METHOD 11/08/2024 4:58 AM EDT [facility] MCHC 31.8 30.7 - 35.5 g/dL LAB HEMATOLOGY METHOD 11/08/2024 4:58 AM EDT [facility] RDW 13.0 11.5 - 14.5 % LAB HEMATOLOGY METHOD 11/08/2024 4:58 AM EDT [facility] MPV 8.8 8.8 - 12.5 fL LAB HEMATOLOGY METHOD 11/08/2024 4:58 AM EDT [facility] nRBC 0.0 <=0.0 per 100 WBCs LAB HEMATOLOGY METHOD 11/08/2024 4:58 AM EDT [facility] Differential Type Automated LAB HEMATOLOGY METHOD 11/08/2024 4:58 AM EDT [facility] Neutrophils % 69 % LAB HEMATOLOGY METHOD 11/08/2024 4:58 AM EDT [facility] Lymphocytes % 17 % LAB HEMATOLOGY METHOD 11/08/2024 4:58 AM EDT [facility] Monocytes % 10 % LAB HEMATOLOGY METHOD 11/08/2024 4:58 AM EDT [facility] Eosinophils % 2 % LAB HEMATOLOGY METHOD 11/08/2024 4:58 AM EDT [facility] Basophils % 1 % LAB HEMATOLOGY METHOD 11/08/2024 4:58 AM EDT [facility] Immature Granulocytes % 1 % LAB HEMATOLOGY METHOD 11/08/2024 4:58 AM EDT [facility] Neutrophils Absolute 6.40(H) 1.60 - 6.10 10*3/uL LAB HEMATOLOGY METHOD 11/08/2024 4:58 AM EDT [facility] Lymphocytes Absolute 1.59 1.20 - 3.90 10*3/uL LAB HEMATOLOGY METHOD 11/08/2024 4:58 AM EDT [facility] Monocytes Absolute 0.87 0.30 - 0.90 10*3/uL LAB HEMATOLOGY METHOD 11/08/2024 4:58 AM EDT [facility] Eosinophils Absolute 0.22 0.00 - 0.50 10*3/uL LAB HEMATOLOGY METHOD 11/08/2024 4:58 AM EDT [facility] Basophils Absolute 0.05 0.00 - 0.10 10*3/uL LAB HEMATOLOGY METHOD 11/08/2024 4:58 AM EDT [facility] Immature Granulocytes Absolute 0.05 0.00 - 0.06 10*3/uL LAB HEMATOLOGY METHOD 11/08/2024 4:58 AM EDT [facility] Blood Venous blood specimen / Unknown Venipuncture / Unknown 11/08/2024 4:39 AM EDT 11/08/2024 4:49 AM EDT Narrative [facility] - 11/08/2024 4:58 AM EDT Therapeutic decision making should be based on absolute values, rather than percentages. us Nathaly Nowak MD LAB BLOOD ORDERABLES Final Resu lt [facility] [address] [place] [address] * (ABNORMAL) Comprehensive Metabolic Panel, Plasma (11/08/2024 4:39 AM EDT) Glucose, Plasma 255(H) 74 - 99 mg/dL 11/08/2024 5:20 AM EDT [facility] BUN, Plasma 10 8 - 23 mg/dL 11/08/2024 5:20 AM EDT [facility] Creatinine, Plasma 0.75 0.70 - 1.20 mg/dL 11/08/2024 5:20 AM EDT [facility] BUN/Creatinine Ratio 13 11/08/2024 5:20 AM EDT [facility] Sodium, Plasma 133(L) 136 - 145 mmol/L 11/08/2024 5:20 AM EDT [facility] Potassium, Plasma 5.2(H) 3.6 - 4.9 mmol/L 11/08/2024 5:20 AM EDT [facility] Chloride, Plasma 105 97 - 107 mmol/L 11/08/2024 5:20 AM EDT [facility] CO2, Plasma 20(L) 22 - 29 mmol/L 11/08/2024 5:20 AM EDT [facility] Anion Gap 8 6 - 16 mmol/L 11/08/2024 5:20 AM EDT [facility] Total Calcium, Plasma 7.7(L) 8.9 - 10.2 mg/dL 11/08/2024 5:20 AM EDT [facility] Total Protein 5.6(L) 6.3 - 7.9 g/dL 11/08/2024 5:20 AM EDT [facility] Albumin, Plasma 2.8(L) 3.5 - 5.2 g/dL 11/08/2024 5:20 AM EDT [facility] AST, Plasma 20 10 - 50 U/L 11/08/2024 5:20 AM EDT [facility] Comment:Hemolyzed, result ma y be falsely increased. ALT, Plasma 14 10 - 50 U/L 11/08/2024 5:20 AM EDT [facility] Alkaline Phosphatase, Plasma 119(H) 40 - 115 U/L 11/08/2024 5:20 AM EDT [facility] Total Bilirubin, Plasma <0.2(L) 0.2 - 1.1 mg/dL 11/08/2024 5:20 AM EDT [facility] eGFRcr 100.1 mL/min/1.7 3m*2 11/08/2024 5:20 AM EDT [facility] Comment:Reported eGFRcr in m L/min/1.73m2 is based the CKD-EPI 2020 equation that does not use a race coefficient. Blood Venous blood specimen / Unknown Venipuncture / Unknown 11/08/2024 4:39 AM EDT 11/08/2024 4:43 AM EDT us Nathaly Nowak MD LAB BLOOD ORDERABLES Final Resu lt [facility] [address] [place] [address] * Vancomycin, Trough, Plasma Please draw ~30 minutes prior to dose due at 0600 on 11/08. Please do NOThold dose awaiting level to return. Consider obtaining level via peripheral stick. If peripheral stick is not feasible, please ensure that line is... (11/08/2024 4:39 AM EDT) Vancomycin, Trough, Plasma 18.7 10.0 - 20.0 ug/mL 11/08/2024 5:22 AM EDT [facility] Blood Venous blood specimen / Unknown Venipuncture / Unknown 11/08/2024 4:39 AM EDT 11/08/2024 4:43 AM EDT Narrative [facility] - 11/08/2024 5:22 AM EDT Therapeutic Trough level: 10-20ug/mL Supra-therapeutic Trough level: >20 ug/mL us Nathaly Nowak MD LAB BLOOD ORDERABLES Final Resu lt Performing Organization Address City/[facility]/ZIP Co de Phone Number [facility] [address] [place] [address] * (ABNORMAL) POCT glucose meter (11/07/2024 7:26 PM EDT) Pathologist [facility] POCT Glucose 172(H) 74 - 99 mg/dL [...] Comment 11/07/2024 7:28 PM EDT [facility] Clinical Staff Rn ID Maximiliano Hansen II 11/07/2024 7:28 PM EDT [facility] Device ID [id number] 11/07/2024 7:28 PM EDT [facility] Specimen Type POC Capillary 11/07/2024 7:28 PM EDT [facility] Blood Capillary blood specimen / Unknown 11/07/2024 7:26 PM EDT 11/07/2024 7:28 PM EDT us Nathaly Nowak MD LAB POINT OF CARE TE ST DOCKED DEVICE UNSOLICITED RESULTS Final Result Performing Organization Address City/[facility] Co de Phone Number [facility] [address] [place] [address] * (ABNORMAL) POCT glucose meter (11/07/2024 5:51 PM EDT) Pathologist [facility] POCT Glucose 183(H) 74 - 99 mg/dL [...] 11/07/2024 5:52 PM EDT [facility] Clinical Staff Rn ID Brigitte Castellon 11/07/2024 5:52 PM EDT [facility] Device ID [id number] 11/07/2024 5:52 PM EDT [facility] Specimen Type POC Capillary 11/07/2024 5:52 PM EDT [facility] Blood Capillary blood specimen / Unknown 11/07/2024 5:51 PM EDT 11/07/2024 5:52 PM EDT Nathaly Nowak MD LAB POINT OF CARE TE ST DOCKED DEVICE UNSOLICITED RESULTS Final Result Performing Organization Address [facility] de Phone Number [facility] [address] [place] [address] * (ABNORMAL) POCT glucose meter (11/07/2024 4:47 [...] 11/07/2024 4:48 PM EDT [facility] Clinical Staff Rn ID Estefani Sheth 11/07/2024 4:48 PM EDT [facility] Device ID [id number] 11/07/2024 4:48 PM EDT [facility] Specimen Type POC Capillary 11/07/2024 4:48 PM EDT [facility] Blood Capillary blood specimen / Unknown 11/07/2024 4:47 PM EDT 11/07/2024 4:48 PM EDT Nathaly Nowak MD LAB POINT OF CARE TE ST DOCKED DEVICE UNSOLICITED RESULTS Final Result Performing Organization Address City/[facility] Co de Phone Number [facility] [address] [place] [address] * (ABNORMAL) POCT glucose meter (11/07/2024 12:22 PM EDT) [facility] POCT Glucose 172(H) 74 - 99 mg/dL [...] Comment 11/07/2024 12:24 PM EDT [facility] Clinical Staff Rn ID Estefani Sheth 11/07/2024 12:24 PM EDT [facility] Device ID [id number] 11/07/2024 12:24 PM EDT [facility] Specimen Type POC Capillary 11/07/2024 12:24 PM EDT [facility] Blood Capillary blood specimen / Unknown 11/07/2024 12:22 PM EDT 11/07/2024 12:24 PM EDT us Nathaly Nowak MD LAB POINT OF CARE TE ST DOCKED DEVICE UNSOLICITED RESULTS Final Result [facility] [address] [place] [address] * (ABNORMAL) CBC and Differential (11/07/2024 11:37 AM EDT) [facility] WBC Count 9.96 3.70 - 10.30 10*3/uL LAB HEMATOLOGY METHOD 11/07/2024 12:33 PM EDT [facility] RBC Count 2.81(L) 4.60 - 6.10 10*6/uL LAB HEMATOLOGY METHOD 11/07/2024 12:33 PM EDT [facility] HGB 8.5(L) 13.7 - 17.5 g/dL LAB HEMATOLOGY METHOD 11/07/2024 12:33 PM EDT [facility] HCT 26.0(L) 40.0 - 51.0 % LAB HEMATOLOGY METHOD 11/07/2024 12:33 PM EDT [facility] Platelet Count 524(H) 155 - 369 10*3/uL LAB HEMATOLOGY METHOD 11/07/2024 12:33 PM EDT [facility] MCV 93 79 - 98 fL LAB HEMATOLOGY METHOD 11/07/2024 12:33 PM EDT [facility] MCH 30.2 26.0 - 32.0 pg LAB HEMATOLOGY METHOD 11/07/2024 12:33 PM EDT [facility] MCHC 32.7 30.7 - 35.5 g/dL LAB HEMATOLOGY METHOD 11/07/2024 12:33 PM EDT [facility] RDW 13.1 11.5 - 14.5 % LAB HEMATOLOGY METHOD 11/07/2024 12:33 PM EDT [facility] MPV 9.0 8.8 - 12.5 fL LAB HEMATOLOGY METHOD 11/07/2024 12:33 PM EDT [facility] nRBC 0.0 <=0.0 per 100 WBCs LAB HEMATOLOGY METHOD 11/07/2024 12:33 PM EDT [facility] Differential Type Automated LAB HEMATOLOGY METHOD 11/07/2024 12:33 PM EDT [facility] Neutrophils % 72 % LAB HEMATOLOGY METHOD 11/07/2024 12:33 PM EDT [facility] Lymphocytes % 17 % LAB HEMATOLOGY METHOD 11/07/2024 12:33 PM EDT [facility] Monocytes % 9 % LAB HEMATOLOGY METHOD 11/07/2024 12:33 PM EDT [facility] LAB Eosinophils % 1 % LAB HEMATOLOGY METHOD 11/07/2024 12:33 PM EDT [facility] Basophils % 1 % LAB HEMATOLOGY METHOD 11/07/2024 12:33 PM EDT [facility] Immature Granulocytes % 0 % LAB HEMATOLOGY METHOD 11/07/2024 12:33 PM EDT [facility] Neutrophils Absolute 7.19(H) 1.60 - 6.10 10*3/uL LAB HEMATOLOGY METHOD 11/07/2024 12:33 PM EDT [facility] Lymphocytes Absolute 1.66 1.20 - 3.90 10*3/uL LAB HEMATOLOGY METHOD 11/07/2024 12:33 PM EDT [facility] Monocytes Absolute 0.88 0.30 - 0.90 10*3/uL LAB HEMATOLOGY METHOD 11/07/2024 12:33 PM EDT [facility] Eosinophils Absolute 0.14 0.00 - 0.50 10*3/uL LAB HEMATOLOGY METHOD 11/07/2024 12:33 PM EDT [facility] Basophils Absolute 0.05 0.00 - 0.10 10*3/uL LAB HEMATOLOGY METHOD 11/07/2024 12:33 PM EDT [facility] Immature Granulocytes Absolute 0.04 0.00 - 0.06 10*3/uL LAB HEMATOLOGY METHOD 11/07/2024 12:33 PM EDT [facility] Blood Venous blood specimen / Unknown Venipuncture / Unknown 11/07/2024 11:37 AM EDT 11/07/2024 12:24 PM EDT Narrative [facility] - 11/07/2024 12:33 PM EDT Therapeutic decision making should be based on absolute values, rather than percentages. us Nathaly Nowak MD LAB BLOOD ORDERABLES Final Resu lt [facility] [address] [place] [address] * (ABNORMAL) Comprehensive Metabolic Panel, Plasma (11/07/2024 11:37 AM EDT) Glucose, Plasma 173(H) 74 - 99 mg/dL 11/07/2024 1:31 PM EDT [facility] BUN, Plasma 13 8 - 23 mg/dL 11/07/2024 1:31 PM EDT [facility] Creatinine, Plasma 0.92 0.70 - 1.20 mg/dL 11/07/2024 1:31 PM EDT [facility] BUN/Creatinine Ratio 11/07/2024 1:31 PM EDT [facility] Sodium, Plasma 136 136 - 145 mmol/L 11/07/2024 1:31 PM EDT [facility] Potassium, Plasma 4.0 3.6 - 4.9 mmol/L 11/07/2024 1:31 PM EDT [facility] Chloride, Plasma 104 97 - 107 mmol/L 11/07/2024 1:31 PM EDT [facility] CO2, Plasma 23 22 - 29 mmol/L 11/07/2024 1:31 PM EDT [facility] Anion Gap 9 6 - 16 mmol/L 11/07/2024 1:31 PM EDT [facility] Total Calcium, Plasma 7.8(L) 8.9 - 10.2 mg/dL 11/07/2024 1:31 PM EDT [facility] Total Protein 5.7(L) 6.3 - 7.9 g/dL 11/07/2024 1:31 PM EDT [facility] Albumin, Plasma 3.0(L) 3.5 - 5.2 g/dL 11/07/2024 1:31 PM EDT [facility] AST, Plasma 15 10 - 50 U/L 11/07/2024 1:31 PM EDT [facility] ALT, Plasma 16 10 - 50 U/L 11/07/2024 1:31 PM EDT [facility] Alkaline Phosphatase, Plasma 119(H) 40 - 115 U/L 11/07/2024 1:31 PM EDT [facility] Total Bilirubin, Plasma <0.2(L) 0.2 - 1.1 mg/dL 11/07/2024 1:31 PM EDT [facility] eGFRcr 92.3 mL/min/1.7 3m*2 11/07/2024 1:31 PM EDT [facility] Comment:Reported eGFRcr in m L/min/1.73m2 is based the CKD-EPI 2020 equation that does not use a race coefficient. Blood Venous blood specimen / Unknown Venipuncture / Unknown 11/07/2024 11:37 AM EDT 11/07/2024 12:23 PM EDT us Nathaly Nowak MD LAB BLOOD ORDERABLES Final Resu lt [facility] [address] [place] [address] * Type and Screen (11/07/2024 11:37 AM [...] ORDERABLES F inal Result Performing Organization Address City/[facility]/ZIP Co de Phone Number BLOOD BANK [address] * (ABNORMAL) POCT glucose meter (11/07/2024 [...] Comment 11/07/2024 10:36 AM EDT [facility] Clinical Staff Rn ID Joy Iraheta 11/07/2024 10:36 AM EDT [facility]ALTH[facility]ARE LAB Device ID [id number] 11/07/2024 10:36 AM EDT [facility]ALTH[facility] LAB Specimen Type POC Capillary 11/07/2024 10:36 AM EDT [facility] Blood Capillary blood specimen / Unknown 11/07/2024 10:34 AM EDT 11/07/2024 10:36 AM EDT Nathaly Nowak MD LAB POINT OF CARE TE ST DOCKED DEVICE UNSOLICITED RESULTS Final Result Performing Organization Address City/[facility]/ZIP Co de Phone Number [facility] [address] [place] [address] * (ABNORMAL) POCT glucose meter (11/07/2024 9:34 [...] 11/07/2024 9:36 AM EDT [facility] Clinical Staff Rn ID Brigitte Castellon 11/07/2024 9:36 AM EDT [facility]ALTH[facility]ARE LAB Device ID [id number] 11/07/2024 9:36 AM EDT [facility]ALTH[facility] LAB Specimen Type POC Capillary 11/07/2024 9:36 AM EDT [facility] Blood Capillary blood specimen / Unknown 11/07/2024 9:34 AM EDT 11/07/2024 9:36 AM EDT Nathaly Nowak MD LAB POINT OF CARE TE ST DOCKED DEVICE UNSOLICITED RESULTS Final Result [facility] [address] [place] [address] * (ABNORMAL) POCT glucose meter (11/07/2024 8:20 AM EDT) [facility] POCT Glucose 137(H) 74 - 99 mg/dL [...] 11/07/2024 8:22 AM EDT [facility] Clinical Staff Rn ID Estefani Sheth 11/07/2024 8:22 AM EDT [facility] Device ID [id number] 11/07/2024 8:22 AM EDT [facility]ALTH[facility]ARE LAB Specimen Type POC Capillary 11/07/2024 8:22 AM EDT [facility] Blood Capillary blood specimen / Unknown 11/07/2024 8:20 AM EDT 11/07/2024 8:22 AM EDT Nathaly Nowak MD LAB POINT OF CARE TE ST DOCKED DEVICE UNSOLICITED RESULTS Final Result Performing Organization Address City/[facility] Co de Phone Number [facility] [address] [place] [address] * (ABNORMAL) POCT glucose meter (11/07/2024 7:21 [...] for testing. Comment 11/07/2024 7:22 AM EDT [facility] Clinical Staff Rn ID Brigitte Castellon 11/07/2024 7:22 AM EDT [facility] Device ID [id number] 11/07/2024 7:22 AM EDT [facility] Specimen Type POC Capillary 11/07/2024 7:22 AM EDT [facility] Blood Capillary blood specimen / Unknown 11/07/2024 7:21 AM EDT 11/07/2024 7:22 AM EDT Nathaly Nowak MD LAB POINT OF CARE TE ST DOCKED DEVICE UNSOLICITED RESULTS Final Result Performing Organization Address City/[facility] Co de Phone Number [facility]ALTHCARE LAB [address] [place] [address] * (ABNORMAL) POCT glucose meter (11/07/2024 6:25 [...] 11/07/2024 6:27 AM EDT [facility] Clinical Staff Rn ID Nelda Gerber 11/08/19 6:27 AM EDT [facility] Device ID [id number] 11/07/2024 6:27 AM EDT [facility] LAB Specimen Type POC Capillary 11/07/2024 6:27 AM EDT [facility] Blood Capillary blood specimen / Unknown 11/07/2024 6:25 AM EDT 11/07/2024 6:27 AM EDT Nathaly Nowak MD LAB POINT OF CARE TE ST DOCKED DEVICE UNSOLICITED RESULTS Final Result Performing Organization Address [facility] de Phone Number [facility]ALTHCARE LAB [address] [place] [address] * (ABNORMAL) POCT glucose meter (11/07/2024 5:03 [...] Comment 11/07/2024 5:08 AM EDT [facility] LAB Clinical Staff Rn ID Nelda Gerber 11/08/19 5:08 AM EDT [facility]ALTH[facility] LAB Device ID [id number] 11/07/2024 5:08 AM EDT [facility] LAB Specimen Type POC Capillary 11/07/2024 5:08 AM EDT [facility] Blood Capillary blood specimen / Unknown 11/07/2024 5:03 AM EDT 11/07/2024 5:08 AM EDT Nathaly Nowak MD LAB POINT OF CARE TE ST DOCKED DEVICE UNSOLICITED RESULTS Final Result Performing Organization Address City/[facility] Co de Phone Number [facility] LAB [address] [place] [address] * (ABNORMAL) POCT glucose meter (11/07/2024 4:16 AM EDT) [facility] POCT Glucose 142(H) 74 - 99 mg/dL [...] Comment 11/07/2024 4:18 AM EDT [facility]ALTH[facility] LAB Clinical Staff Rn ID Nelda Gerber 11/08/19 4:18 AM EDT [facility] Device ID [id number] 11/07/2024 4:18 AM EDT [facility]ALTH[facility] LAB Specimen Type POC Capillary 11/07/2024 4:18 AM EDT [facility] Blood Capillary blood specimen / Unknown 11/07/2024 4:16 AM EDT 11/07/2024 4:18 AM EDT Nathaly Nowak MD LAB POINT OF CARE TE ST DOCKED DEVICE UNSOLICITED RESULTS Final Result [facility] [address] [place] [address] * (ABNORMAL) POCT glucose meter (11/07/2024 3:21 AM EDT) [facility] POCT Glucose 141(H) 74 - 99 mg/dL [...] 11/07/2024 3:23 AM EDT [facility] Clinical Staff Rn ID Nelda Gerber 11/08/19 3:23 AM EDT [facility] Device ID [id number] 11/07/2024 3:23 AM EDT [facility] LAB Specimen Type POC Capillary 11/07/2024 3:23 AM EDT [facility] Blood Capillary blood specimen / Unknown 11/07/2024 3:21 AM EDT 11/07/2024 3:23 AM EDT Nathaly Nowak MD LAB POINT OF CARE TE ST DOCKED DEVICE UNSOLICITED RESULTS Final Result Performing Organization Address City/[facility] Co de Phone Number [facility] [address] [place] [address] * (ABNORMAL) POCT glucose meter (11/07/2024 2:10 [...] Comment 11/07/2024 2:12 AM EDT [facility] LAB Clinical Staff Rn ID Nelda Gerber 11/08/19 2:12 AM EDT HEALTH[facility]ARE LAB Device ID [id number] 11/07/2024 2:12 AM EDT [facility] LAB Specimen Type POC Capillary 11/07/2024 2:12 AM EDT [facility] Blood Capillary blood specimen / Unknown 11/07/2024 2:10 AM EDT 11/07/2024 2:12 AM EDT Nathaly Nowak MD LAB POINT OF CARE TE ST DOCKED DEVICE UNSOLICITED RESULTS Final Result Performing Organization Address City/[facility] Co de Phone Number [facility] LAB [address] [place] [address] * (ABNORMAL) POCT glucose meter (11/07/2024 1:08 [...] Comment 11/07/2024 1:10 AM EDT [facility] LAB Clinical Staff Rn ID Nelda Gerber 11/08/19 1:10 AM EDT [facility]ALTH[facility]ARE LAB Device ID [id number] 11/07/2024 1:10 AM EDT [facility] LAB Specimen Type POC Capillary 11/07/2024 1:10 AM EDT [facility] Blood Capillary blood specimen / Unknown 11/07/2024 1:08 AM EDT 11/07/2024 1:10 AM EDT Nathaly Nowak MD LAB POINT OF CARE TE ST DOCKED DEVICE UNSOLICITED RESULTS Final Result Performing Organization Address City/State/[facility] Co de Phone Number HEALTH[facility]ARE LAB [address] [place] [address] * (ABNORMAL) POCT glucose meter (11/07/2024 12:10 AM EDT) [facility] POCT Glucose 127(H) 74 - 99 mg/dL [...] Comment 11/07/2024 12:13 AM EDT [facility]ALTH[facility] LAB Clinical Staff Rn ID Nelda Gerber 11/08/19 12:13 AM EDT HEALTH[facility]ARE LAB Device ID [id number] 11/07/2024 12:13 AM EDT [facility] LAB Specimen Type POC Capillary 11/07/2024 12:13 AM EDT [facility] Blood Capillary blood specimen / Unknown 11/07/2024 12:10 AM EDT 11/07/2024 12:13 AM EDT Nathaly Nowak MD LAB POINT OF CARE TE ST DOCKED DEVICE UNSOLICITED RESULTS Final Result Performing Organization Address City/[facility] Co de Phone Number [facility]ALTH[facility]ARE LAB [address] [place] [address] * (ABNORMAL) POCT glucose meter (11/06/2024 11:14 PM EDT) Pathologist [facility] POCT Glucose 71(L) 74 - 99 mg/dL [...] for testing. Comment 11/06/2024 11:16 PM EDT [facility] Clinical Staff Rn ID Nelda Gerber 11/07/19 11:16 PM EDT [facility] LAB Device ID [id number] 11/06/2024 11:16 PM EDT [facility] Specimen Type POC Capillary 11/06/2024 11:16 PM EDT [facility] Blood Capillary blood specimen / Unknown 11/06/2024 11:14 PM EDT 11/06/2024 11:16 PM EDT Nathaly Nowak MD LAB POINT OF CARE TE ST DOCKED DEVICE UNSOLICITED RESULTS Final Result Performing Organization Address City/[facility] Co de Phone Number [facility] [address] [place] [address] * (ABNORMAL) POCT glucose meter (11/06/2024 10:07 PM EDT) Pathologist [facility] POCT Glucose 140(H) 74 - 99 mg/dL [...] Comment 11/06/2024 10:09 PM EDT [facility] LAB Clinical Staff Rn ID Nelda Gerber 11/07/19 10:09 PM EDT [facility] LAB Device ID [id number] 11/06/2024 10:09 PM EDT [facility] LAB Specimen Type POC Capillary 11/06/2024 10:09 PM EDT [facility] Blood Capillary blood specimen / Unknown 11/06/2024 10:07 PM EDT 11/06/2024 10:09 PM EDT Nathaly Nowak MD LAB POINT OF CARE TE ST DOCKED DEVICE UNSOLICITED RESULTS Final Result Performing Organization Address City/[facility] Co de Phone Number [facility] LAB [address] [place] [address] * (ABNORMAL) POCT glucose meter (11/06/2024 8:22 [...] Comment 11/06/2024 8:25 PM EDT [facility] LAB Clinical Staff Rn ID Nelda Gerber 11/07/19 8:25 PM EDT [facility] LAB Device ID [id number] 11/06/2024 8:25 PM EDT [facility] LAB Specimen Type POC Capillary 11/06/2024 8:25 PM EDT [facility] Blood Capillary blood specimen / Unknown 11/06/2024 8:22 PM EDT 11/06/2024 8:25 PM EDT us Nathaly Nowak MD LAB POINT OF CARE TE ST DOCKED DEVICE UNSOLICITED RESULTS Final Result Performing Organization Address City/[facility]/ZIP Co de Phone Number [facility] [address] [place] [address] * (ABNORMAL) POCT glucose meter (11/06/2024 7:31 PM EDT) Pathologist [facility] POCT Glucose 359(H) 74 - 99 mg/dL [...] Comment 11/06/2024 7:32 PM EDT [facility] LAB Clinical Staff Rn ID Nelda Gerber 11/07/19 7:32 PM EDT HEALTH[facility]ARE LAB Device ID [id number] 11/06/2024 7:32 PM EDT [facility] LAB Specimen Type POC Capillary 11/06/2024 7:32 PM EDT [facility] Blood Capillary blood specimen / Unknown 11/06/2024 7:31 PM EDT 11/06/2024 7:32 PM EDT us Nathaly Nowak MD LAB POINT OF CARE TE ST DOCKED DEVICE UNSOLICITED RESULTS Final Result Performing Organization Address City/State/[facility] Co de Phone Number [facility] [address] [place] [address] * (ABNORMAL) POCT glucose meter (11/06/2024 6:15 PM EDT) [facility] POCT Glucose 368(H) 74 - 99 mg/dL [...] Comment 11/06/2024 6:17 PM EDT [facility]ALTH[facility] LAB Clinical Staff Rn ID Estefani Sheth 11/06/2024 6:17 PM EDT [facility] Device ID [id number] 11/06/2024 6:17 PM EDT [facility]ALTH[facility] LAB Specimen Type POC Capillary 11/06/2024 6:17 PM EDT [facility] Blood Capillary blood specimen / Unknown 11/06/2024 6:15 PM EDT 11/06/2024 6:17 PM EDT Nathaly Nowak MD LAB POINT OF CARE TE ST DOCKED DEVICE UNSOLICITED RESULTS Final Result Performing Organization Address City/[facility]/ZIP Co de Phone Number [facility]ARE [facility] [address] [place] [address] * (ABNORMAL) POCT glucose meter (11/06/2024 4:57 [...] Comment 11/06/2024 4:58 PM EDT [facility] LAB Clinical Staff Rn ID Estefani Sheth 11/06/2024 4:58 PM EDT HEALTH[facility]ARE LAB Device ID [id number] 11/06/2024 4:58 PM EDT [facility] Specimen Type POC Capillary 11/06/2024 4:58 PM EDT [facility] Blood Capillary blood specimen / Unknown 11/06/2024 4:57 PM EDT 11/06/2024 4:58 PM EDT us Nathaly Nowak MD LAB POINT OF CARE TE ST DOCKED DEVICE UNSOLICITED RESULTS Final Result Performing Organization Address City/[facility]/ZIP Co de Phone Number [facility] [address] [place] [address] * (ABNORMAL) POCT glucose meter (11/06/2024 2:08 [...] Comment 11/06/2024 2:09 PM EDT [facility] LAB Clinical Staff Rn ID Brigitte Castellon 11/06/2024 2:09 PM EDT [facility]ALTH[facility] LAB Device ID [id number] 11/06/2024 2:09 PM EDT [facility] LAB Specimen Type POC Capillary 11/06/2024 2:09 PM EDT [facility] Blood Capillary blood specimen / Unknown 11/06/2024 2:08 PM EDT 11/06/2024 2:09 PM EDT us Nathaly Nowak MD LAB POINT OF CARE TE ST DOCKED DEVICE UNSOLICITED RESULTS Final Result Performing Organization Address City/State/[facility] Co de Phone Number [facility]ARE LAB [address] [place] [address] * (ABNORMAL) POCT glucose meter (11/06/2024 12:27 [...] Comment 11/06/2024 12:28 PM EDT [facility]ALTH[facility] LAB Clinical Staff Rn ID Jacinta Galloway 11/06/2024 12:28 PM EDT HEALTH[facility]ARE LAB Device ID [id number] 11/06/2024 12:28 PM EDT [facility]ALTH[facility] LAB Specimen Type POC Capillary 11/06/2024 12:28 PM EDT [facility] Blood Capillary blood specimen / Unknown 11/06/2024 12:27 PM EDT 11/06/2024 12:28 PM EDT us Nathaly Nowak MD LAB POINT OF CARE TE ST DOCKED DEVICE UNSOLICITED RESULTS Final Result [facility] [address] [place] [address] * (ABNORMAL) Tissue Culture and Gram Stain (11/06/2024 11:34 AM EDT) Culture Moderate Growth 7:35 AM EDT [facility] Culture 2+ Enterobacter cloacae complex(A) ANGÉLICA 11/15/2024 7:35 AM EDT [facility] Comment: This isolate has been identified using the FDA Approved [employer] [place] System The organism value for this result has been updated. These results have been appended to the previously preliminary verified report. Edited result: Previously reported as Gram Negative Jesus on 11/07/2024 at 1434 EDT. Culture 2+ Streptococcus mitis/oralis group(A) ANGÉLICA 11/15/2024 7:35 AM EDT [facility] Comment: This isolate has been identified using the FDA Approved [employer] [place] System The organism value for this result has been updated. These results have been appended to the previously preliminary verified report. Culture 2+ Pasteurella stomatis(A) ANGÉLICA 11/15/2024 7:35 AM EDT [facility] Comment: This result was determined by [employer] tof mass spectrometry using the Alai database and is for research use only. The organism value for this result has been updated. These results have been appended to the previously preliminary verified report. Gram Stain Result Few Gram negative rods(A) 11/15/2024 7:35 AM EDT [facility] Gram Stain Result Moderate Polymorphonuclear leukocytes(A) 11/15/2024 7:35 AM EDT [facility] Gram Stain Result Few Gram positive cocci in pairs(A) 11/15/2024 7:35 AM EDT [facility] Tissue Topography unknown / Unknown 11/06/2024 11:34 AM EDT 11/06/2024 12:18 PM EDT Comment:Pre-op diagnosis: Surgical wound infection [T81.49XA] Narrative [facility] - 11/15/2024 7:35 AM [...] GENERAL ORDE LAM Edited Result - Final [facility] [address] [place] [address] * (ABNORMAL) Anaerobic Culture (11/06/2024 11:34 AM EDT) Culture No anaerobes isolated 11/14/2024 1:25 PM EDT [facility] Culture Staphylococcus pseudintermedius( A) 11/14/2024 1:25 PM EDT [facility] Comment: This result was determined by [employer] tof mass spectrometry using the Alai database and is for research use only. This is an appended report. These results have been appended to a previously final verified report. Tissue Topography unknown / Unknown 11/06/2024 11:34 AM EDT 11/06/2024 12:18 PM EDT Comment:Pre-op diagnosis: Surgical wound infection [T81.49XA] Narrative [facility] - 11/14/2024 1:25 PM [...] Edited Result - Final Performing Organization Address [facility] Co de Phone Number [facility] [address] [place] [address] * (ABNORMAL) Routine Culture and Gram Stain (11/06/2024 11:29 AM EDT) Culture Moderate Growth 5:29 PM EDT [facility] Culture Enterobacter cloacae complex(A) 11/08/2024 5:29 PM EDT [facility] Comment: This isolate has been identified using the FDA Approved [employer] [place] System For susceptibility results refer to: - [id number] The organism value for this result has been updated. These results have been appended to the previously preliminary verified report. Gram Stain Result No polymorphonuclear leukocytes seen 11/08/2024 5:29 PM EDT [facility] Gram Stain Result No organisms seen 11/08/2024 5:29 PM EDT [facility] Swab Topography unknown / Unknown 11/06/2024 11:29 AM EDT 11/06/2024 12:19 PM EDT Comment:Pre-op diagnosis: Surgical wound infection [T81.49XA] Nathaly Nowak MD LAB MICROBIOLOGY - GENERAL ATIYA FRITZ Final Result Performing Organization Address [facility] Co de Phone Number [facility] [address] [place] [address] * Fungal Culture, Routine (11/06/2024 11:29 AM EDT) Culture No Fungal Growth at 1 Week 11/13/2024 8:29 AM EDT [facility] Swab Topography unknown / Unknown 11/06/2024 11:29 AM EDT 11/06/2024 12:19 PM EDT Comment:Pre-op diagnosis: Surgical wound infection [T81.49XA] [facility] Nowak [facility] Final Result [facility] [address] [place] [address] * (ABNORMAL) Anaerobic Culture (11/06/2024 11:29 AM EDT) Culture No anaerobes isolated 11/14/2024 1:25 PM EDT [facility] Culture Streptococcus mitis/oralis group(A) 11/14/2024 1:25 PM EDT [facility] Comment: This result was determined by [employer] tof mass spectrometry using the Alai database and is for research use only. The organism value for this result has been updated. These results have been appended to the previously preliminary verified report. This is a corrected result. Previous organism was Mixed skin clifton on 11/10/2024 at 0718 EDT. Culture Staphylococcus pseudintermedius( A) 11/14/2024 1:25 PM EDT [facility] Comment: This isolate has been identified using the FDA Approved [employer] [place] System This is an appended report. These results have been appended to a previously final verified report. Swab Topography unknown / Unknown 11/06/2024 11:29 AM EDT 11/06/2024 12:19 PM EDT Comment:Pre-op diagnosis: Surgical wound infection [T81.49XA] Narrative [facility] - 11/14/2024 1:25 PM [...] Edited Result - Final Performing Organization Address [facility] Co de Phone Number [facility] [address] [place] [address] * Routine Culture and Gram Stain (11/06/2024 11:28 AM EDT) Culture No growth at day 4 2024 11:24 AM EDT [facility] Gram Stain Result No organisms seen 11/10/2024 11:24 AM EDT [facility] Gram Stain Result No polymorphonuclear leukocytes seen 11/10/2024 11:24 AM EDT [facility] Swab Topography unknown / Unknown 11/06/2024 11:28 AM EDT 11/06/2024 12:20 PM EDT Comment:Pre-op diagnosis: Surgical wound infection [T81.49XA] Nathaly Nowak MD LAB MICROBIOLOGY - GENERAL ORDE LAM Final Result Performing Organization Address [facility] Co de Phone Number [facility] [address] [place] [address] * Fungal Culture, Routine (11/06/2024 11:28 AM EDT) Culture No Fungal Growth at 1 Week 11/13/2024 8:29 AM EDT [facility] Swab Topography unknown / Unknown 11/06/2024 11:28 AM EDT 11/06/2024 12:20 PM EDT Comment:Pre-op diagnosis: Surgical wound infection [T81.49XA] Nathaly Nowak MD LAB MICROBIOLOGY - GENERAL ORDE LAM Final Result Performing Organization Address [facility] Co de Phone Number [facility] [address] [place] [address] * Anaerobic Culture (11/06/2024 11:28 AM EDT) Culture No growth at day 4 11/13/2024 12:53 PM EDT [facility] Swab Topography unknown / Unknown 11/06/2024 11:28 AM EDT 11/06/2024 12:20 PM EDT Comment:Pre-op diagnosis: Surgical wound infection [T81.49XA] Nathaly Nowak MD LAB MICROBIOLOGY - [facility] Final Result Performing Organization Address [facility] de Phone Number [facility] [address] [place] [address] * (ABNORMAL) POCT glucose meter (11/06/2024 10:16 AM EDT) Pathologist [facility] POCT Glucose 194(H) 74 - 99 mg/dL [...] 11/06/2024 10:18 AM EDT [facility] Clinical Staff Rn ID Lacy Griffin 11/07/19 10:18 AM EDT HEALTH[facility]ARE LAB Device ID [id number] 11/06/2024 10:18 AM EDT [facility] Specimen Type POC Capillary 11/06/2024 10:18 AM EDT [facility] Blood Capillary blood specimen / Unknown 11/06/2024 10:16 AM EDT 11/06/2024 10:18 AM EDT Nathaly Nowak MD LAB POINT OF CARE TE ST DOCKED DEVICE UNSOLICITED RESULTS Final Result Performing Organization Address [facility] de Phone Number [facility] [address] [place] [address] * (ABNORMAL) POCT glucose meter (11/06/2024 5:58 [...] for testing. Comment 11/06/2024 6:01 AM EDT [facility] Clinical Staff Rn ID Raj Laird 11/07/19 6:01 AM EDT [facility] Device ID [id number] 11/06/2024 6:01 AM EDT [facility] Specimen Type POC Capillary 11/06/2024 6:01 AM EDT [facility] Blood Capillary blood specimen / Unknown 11/06/2024 5:58 AM EDT 11/06/2024 6:01 AM EDT Nathaly Nowak MD LAB POINT OF CARE TE ST DOCKED DEVICE UNSOLICITED RESULTS Final Result Performing Organization Address City/[facility] Co de Phone Number [facility] [address] [place] [address] * (ABNORMAL) POCT glucose meter (11/06/2024 5:36 [...] Comment 11/06/2024 5:38 AM EDT [facility]ALTH[facility]ARE [facility] Clinical Staff Rn ID Shahid Sanches 11/06/2024 5:38 AM EDT [facility] Device ID [id number] 11/06/2024 5:38 AM EDT [facility] Specimen Type POC Capillary 11/06/2024 5:38 AM EDT [facility] Blood Capillary blood specimen / Unknown 11/06/2024 5:36 AM EDT 11/06/2024 5:38 AM EDT us Nathaly Nowak MD LAB POINT OF CARE TE ST DOCKED DEVICE UNSOLICITED RESULTS Final Result Performing Organization Address [facility] Co de Phone Number [facility] [address] [place] [address] * (ABNORMAL) Hemoglobin A1c (11/06/2024 1:07 AM EDT) Hemoglobin A1c 7.6(H) <5.7 % 11/06/2024 11:09 AM EDT [facility] Blood Venous blood specimen / Unknown Venipuncture / Unknown 11/06/2024 1:07 AM EDT 11/06/2024 1:26 AM EDT Narrative [facility] - 11/06/2024 11:09 AM EDT HA1C Interpretive Data: Diagnosis of Diabetes: Diabetic > or = 6.5% Pre-diabetic 5.7 to 6.4% Non-diabetic < or = 5.6% Glycemic Targets for Type I and Type II Diabetics: Non- Adults <7.0% Adults <6.0% Children and Adolescents <7.5% Source: [place] [employer]. Standards of medical care in diabetes,2017. Diabetes Care.2017:40 (suppl 1):S1-S135. us Nathaly Nowak MD LAB BLOOD ORDERABLES Final Resu lt Performing Organization Address City/[facility]/ZIP Co de Phone Number [facility] [address] [place] [address] * Blood Culture (Aerobic/Anaerobet Set) (11/06/2024 1:07 AM EDT) Culture No growth at day 5 11/11/2024 2:49 AM EDT [facility] Blood Structure of right hand / Unknown Venipuncture / Unknown 11/06/2024 1:07 AM EDT 11/06/2024 2:36 AM EDT Nathaly Nowak MD LAB MICROBIOLOGY - GENERAL ORDE RABONEIDA Final Result Performing Organization Address [facility] Co de Phone Number [facility] [address] [place] [address] * Blood Culture (Aerobic/Anaerobet Set) (11/06/2024 1:07 AM EDT) Culture No growth at day 5 11/11/2024 3:01 AM EDT [facility] Blood Structure of antecubital vein / Unknown Venipuncture / Unknown 11/06/2024 1:07 AM EDT 11/06/2024 2:36 AM EDT Nathaly Nowak MD LAB MICROBIOLOGY - GENERAL ORDE LAM Final Result Performing Organization Address City/[facility] Co de Phone Number [facility] [address] [place] [address] * (ABNORMAL) Basic metabolic panel (11/06/2024 1:07 AM EDT) Glucose, Plasma 207(H) 74 - 99 mg/dL 11/06/2024 1:41 AM EDT [facility] BUN, Plasma 20 8 - 23 mg/dL 11/06/2024 1:41 AM EDT [facility] Creatinine, Plasma 0.92 0.70 - 1.20 mg/dL 11/06/2024 1:41 AM EDT [facility] BUN/Creatinine Ratio 22 11/06/2024 1:41 AM EDT [facility] Sodium, Plasma 136 136 - 145 mmol/L 11/06/2024 1:41 AM EDT [facility] Potassium, Plasma 4.5 3.6 - 4.9 mmol/L 11/06/2024 1:41 AM EDT [facility] Chloride, Plasma 104 97 - 107 mmol/L 11/06/2024 1:41 AM EDT [facility] CO2, Plasma 22 22 - 29 mmol/L 11/06/2024 1:41 AM EDT [facility] Anion Gap 10 6 - 16 mmol/L 11/06/2024 1:41 AM EDT [facility] Total Calcium, Plasma 9.0 8.9 - 10.2 mg/dL 11/06/2024 1:41 AM EDT [facility] eGFRcr 92.3 mL/min/1.7 3m*2 11/06/2024 1:41 AM EDT [facility] Comment:Reported eGFRcr in m L/min/1.73m2 is based the CKD-EPI 2020 equation that does not use a race coefficient. Blood Venous blood specimen / Unknown Venipuncture / Unknown 11/06/2024 1:07 AM EDT 11/06/2024 1:12 AM EDT us Nathaly Nowak MD LAB BLOOD ORDERABLES Final Resu lt [facility] [address] [place] [address] * Phosphorus (11/06/2024 1:07 AM EDT) Phosphorus, Plasma 3.2 2.5 - 4.5 mg/dL 11/06/2024 1:41 AM EDT [facility] Blood Venous blood specimen / Unknown Venipuncture / Unknown 11/06/2024 1:07 AM EDT 11/06/2024 1:12 AM EDT us Nathaly Nowak MD LAB BLOOD ORDERABLES Final Resu lt [facility] [address] [place] [address] * Magnesium (11/06/2024 1:07 AM EDT) Magnesium, Plasma 2.2 1.9 - 2.4 mg/dL 11/06/2024 1:41 AM EDT [facility] Blood Venous blood specimen / Unknown Venipuncture / Unknown 11/06/2024 1:07 AM EDT 11/06/2024 1:12 AM EDT us Nathaly Nowak MD LAB BLOOD ORDERABLES Final Resu lt [facility] [address] [place] [address] * (ABNORMAL) CBC (11/06/2024 1:07 AM EDT) WBC Count 9.70 3.70 - 10.30 10*3/uL LAB HEMATOLOGY METHOD 11/06/2024 1:19 AM EDT [facility] RBC Count 2.89(L) 4.60 - 6.10 10*6/uL LAB HEMATOLOGY METHOD 11/06/2024 1:19 AM EDT [facility] HGB 8.8(L) 13.7 - 17.5 g/dL LAB HEMATOLOGY METHOD 11/06/2024 1:19 AM EDT [facility] HCT 26.2(L) 40.0 - 51.0 % LAB HEMATOLOGY METHOD 11/06/2024 1:19 AM EDT [facility] Platelet Count 542(H) 155 - 369 10*3/uL LAB HEMATOLOGY METHOD 11/06/2024 1:19 AM EDT [facility] MCV 91 79 - 98 fL LAB HEMATOLOGY METHOD 11/06/2024 1:19 AM EDT [facility] MCH 30.4 26.0 - 32.0 pg LAB HEMATOLOGY METHOD 11/06/2024 1:19 AM EDT [facility] MCHC 33.6 30.7 - 35.5 g/dL LAB HEMATOLOGY METHOD 11/06/2024 1:19 AM EDT [facility] RDW 13.2 11.5 - 14.5 % LAB HEMATOLOGY METHOD 11/06/2024 1:19 AM EDT [facility] MPV 8.7(L) 8.8 - 12.5 fL LAB HEMATOLOGY METHOD 11/06/2024 1:19 AM EDT [facility] nRBC 0.0 <=0.0 per 100 WBCs LAB HEMATOLOGY METHOD 11/06/2024 1:19 AM EDT [facility] Blood Venous blood specimen / Unknown Venipuncture / Unknown 11/06/2024 1:07 AM EDT 11/06/2024 1:12 AM EDT us Nathaly Nowak MD LAB BLOOD ORDERABLES Final Resu lt Performing Organization Address City/[facility]/ZIP Co de Phone Number [facility] [address] [place] [address] * Gold Top (11/06/2024 12:58 AM EDT) Extra Hold for add-ons 11/06/2024 3:21 AM EDT [facility] Comment:Auto resulted. Blood Venous blood specimen / Unknown 11/06/2024 12:58 AM EDT 11/06/2024 1:13 AM EDT us Nathaly Nowak MD LAB BLOOD ORDERABLES Final Resu lt Performing Organization Address [facility]/ZIP Co de Phone Number [facility] [address] [place] [address] * Gold Top (11/06/2024 12:58 AM EDT) Extra Hold for add-ons 11/06/2024 3:21 AM EDT [facility] Comment:Auto resulted. Blood Venous blood specimen / Unknown 11/06/2024 12:58 AM EDT 11/06/2024 1:13 AM EDT us Nathaly Nowak MD LAB BLOOD ORDERABLES Final Resu lt Performing Organization Address City/[facility] Co de Phone Number [facility] [address] [place] [address] * Light Green Top (11/06/2024 12:58 AM EDT) Extra Hold for add-ons 11/06/2024 3:21 AM EDT [facility] Comment:Auto resulted. Blood Venous blood specimen / Unknown 11/06/2024 12:58 AM EDT 11/06/2024 1:13 AM EDT us Nathaly Nowak MD LAB BLOOD ORDERABLES Final Resu lt Performing Organization Address [facility]/ZIP Co de Phone Number [facility] [address] [place] [address] * Light Blue Top (11/06/2024 12:58 AM EDT) Extra Hold for add-ons 11/06/2024 3:21 AM EDT [facility] Comment:Auto resulted. Blood Venous blood specimen / Unknown 11/06/2024 12:58 AM EDT 11/06/2024 1:13 AM EDT us Nathaly Nowak MD LAB BLOOD ORDERABLES Final Resu lt Performing Organization Address [facility] Co de Phone Number [facility] [address] [place] [address] * Light Blue Top (11/06/2024 12:58 AM EDT) Extra Hold for add-ons 11/06/2024 3:21 AM EDT [facility] Comment:Auto resulted. Blood Venous blood specimen / Unknown 11/06/2024 12:58 AM EDT 11/06/2024 1:13 AM EDT Result [facility] Nathaly Nowak MD LAB BLOOD ORDERABLES Final Resu lt Performing Organization Address [facility] de Phone Number [facility] [address] [place] [address] * (ABNORMAL) POCT glucose meter (11/06/2024 12:45 AM EDT) POCT Glucose 204(H) 74 - 99 mg/dL 11/06/2024 12:48 AM EDT [facility] Comment:Accuracy of a glucos e result [...] Comment 11/06/2024 12:48 AM EDT [facility] Clinical Staff Rn ID Raj Laird 11/07/19 12:48 AM EDT [facility] Device ID [id number] 11/06/2024 12:48 AM EDT [facility] Specimen Type POC Capillary 11/06/2024 12:48 AM EDT [facility] Blood Capillary blood specimen / Unknown 11/06/2024 12:45 AM EDT 11/06/2024 12:48 AM EDT us Nathaly Nowak MD LAB POINT OF CARE TE ST DOCKED DEVICE UNSOLICITED RESULTS Final Result [facility] [address] [place] [id number] documented in this encounter Visit Diagnoses Diagnosis [...] needed, Starting on Mon11/06/24 at 0031, Until [facility] 11/14/24 at 1804, Routine, line care [...] needed, Starting on Mon11/06/24 at 0753, Until [facility] 11/14/24 at 1804, Routine, On Unit [...] 250 mL/hr, Routine 0939 (Given - Provider: Deovra Bo)2149 (Given - Provider: Jonathan Vale RN [...] documented as of this encounter Care Teams Card Hand Relationship Specialty Start Date End Date Asad Victor MD [address] [place] [address] PCP - General 10/07/22 documented as of this encounter
--- OUTSIDE RECORDS SUMMARY | 2024-11-06 10:47 | XMS_ITS | Encounter Summary ---
Author Organization Healthcare Address [address] [place] [address] Care Team Providers Care Parlor Chaperone Name Role Phone Asad Victor MD Primary Care Provider + [phone] Reason for Visit * Auth/Cert (Routine) Specialty Diagnoses / Procedures Referred By Contac t Referred To Contact Diagnoses Wound infection Post-op Vasc Sx wounds - sx on 10/17 at Nathaly Nowak MD [address] [facility] [address] [place] [address] Phone: tel: fax: P[facility] A Emergency Department [address] [place] [address] Phone: tel: Referral ID Status Reason Start Date Expiration Date Visits Re quested Visits Authorized [id number] 1 1 Encounter Details Date Type Department Care Team (Late st Contact Info) Description 11/06/2024 10:47 AM EDT Anesthesia Event [facility] A OPERATING ROOM [address] [place] [address] Bill Sue MD [address] [place] [address] Sabrina Mckeon PA [address] [facility] [address] [place] [address] Anesthesia Record Procedure Summary Procedure [...] first t dino in the morning (EYE-SECURITY SOLUTIONS ENGINEER) to steady your nerves or to [...] and Staff Patient location during procedure: OR RESIDENTIAL YOUTH COUNSELOR: Asad Lechuga CRNA, DNP Performed: RESIDENTIAL YOUTH COUNSELOR Patient Condition Indications for airway management: anesthesia [...] placement (Left) Location: [facility]-A OR 16 / [place] OR Surgeons: Nathaly Nowak MD [facility] Mono Ana Bobby is a 64 y.o. [...] Abnormal Ventricular Rate 85 Atrial Rate 85 [place] Interval 146 QRSD Interval 128 QT Interval 390 QTC Interval 464 P [place] 52 R [place] 263 T Wave [place] 57 Diagnosis Atrial-sensed ventricular-paced rhythm Diagnosis Biventricular [...] is no recent study available for direct xcyb-pt-jtca comparison. [facility]: Pre-operative CIED Report Assessment and Sara- Procedural Reommendations: Name: Mono Bobby Date: 10/17/2024 : 1960 Age: 64 y.o. Patient has a Detention Officer: Berger BID ANALYST-PM Remaining battery longevity adequate. Lead integrity [...] RVR s/p CABG), CAD (CAD s/p multiple OR's and 3V CABG02/2019, 2 stents prior to CABG), carotid artery disease (carotid artery disease s/p R CEA 2016), dysrhythmias (3rd degree AV block BID ANALYST-P placed 08/2023 for Wenkeback with 11 sec pause), hyperlipidemia, pacemaker and PVD. Does not have angina, CHF, murmur, orthopnea, syncope or valvular heart disease. hypertension: Cardio additional comments: Follows with OSH Card last seen 09/25/24 ([place]) . Respiratory: home oxygen (2L). no asthma: [...] ENDARTERECTOMY N/A 2017 Endarterectomy Carotid Artery from [employer] CORONARY ANGIOPLASTY Left Coronary Angiography With Concomitant Left Heart Catheterization from [employer] CORONARY ARTERY BYPASS GRAFT N/A 2018 3V ELBOW SURGERY Right ENDARTERECTOMY Left 10/17/2024 common/SFA/Profunda thromboendarterectomy, EIA/SEALER SANDER stent HERNIA REPAIR KNEE ARTHROSCOPY Left VASCULAR SURGERY Left 09/21/2024 SEALER SANDER pseudoaneurym injection [5] Social History [facility] [address] [place] [address] 11/26/2024 2:30 PM EDT Hospital Encounter [facility] [address] [place] [address] 11/26/2024 3:20 PM EDT Office Visit [facility] [address] [place] [address] Elisabet Schuster PA [address] [facility] [address] [place] [address] 11/29/2024 2:30 PM EDT Office Visit [place] [place] [address] Oscar Appiah MD [address] [facility] [address] [place] [address] documented as of this encounter Goals Goal Patient Goal Type Associated Problems Recent Progress Patient-Stated? Author Autogenera louise Goal Care Plan Autogenerated Problem No Ekta Arnett documented as of this encounter Procedures Procedure Name Priority Date/Time Associated Diagnosis Comments PB ANESTHESIA PLACEHOLDER Routine 11/06/2024 10:58 AM EDT [place] AN ELECTIVE ENDOTRACHEAL AIRWAY Routine 11/06/2024 10:58 AM EDT documented in this encounter Results * NV AN ELECTIVE ENDOTRACHEAL AIRWAY, PB ANESTHESIA PLACEHOLDER (11/06/2024 10:58 AM EDT) Narrative Asad Lechuga CRNA, DNP - 11/06/2024 10:58 AM EDT Asad Lechuga CRNA, DNP 11/06/2024 11:05 AM Airway Date/Time: 11/06/2024 10:58 AM Reason: elective Airway not difficult General Information and Staff Patient location during procedure: OR RESIDENTIAL YOUTH COUNSELOR: Asad Lechuga CRNA, DNP Performed: ISH Patient [...] documented as of this encounter Care Teams Parlor Chaperone Relationship Specialty Start Date End Date Asad Victor MD [address] [place] [address] PCP - General 10/07/22 documented as of this encounter
--- OUTSIDE RECORDS SUMMARY | 2024-11-20 10:54 | XMS_ITS | Encounter Summary ---
Author Organization Healthcare Address [address] [place] [id number] Care Team Providers Care Director Of Teaching And Learning Name Role Phone Asad Victor MD Primary Care Provider + [phone] Reason for Visit * Reason Onset Date Comments HCN Clinical Concern/Question 11/15/2024 Encounter Details Date Type Department Care Team (Late st Contact Info) Description 11/15/2024 Telephone [facility] [address] [place] [facility] 5th Floor [address] [place] [address] Nathaly Nowak MD [address] [facility] [address] [place] [address] HCN Clinical Concern/Question Social History [...] in the past 12 m [facility], were you homeless or [...] drink first t dino in the morning (EYE-PROTOCOL MANAGER) to steady your nerves or to [...] with info. Thank you Best contact number: [phone] (mobile) Optimal time of day to reach caller: ANYTIME Additional comments/information from caller: None Note: Please do not reply to this message. Follow-up communication and further actions as a result of this message need to be communicated with the patient directly, if the patient is not active onMyChart. If the patient is active on MyChart, they will receive notification of the communication/outcome via [facility], Inchart. documented in this encounter Plan of Treatment Upcoming Encounters Date Type Department Care Team (Late st Contact Info) Description 11/26/2024 2:00 PM EDT Hospital Encounter [facility] [address] [place] [address] 11/26/2024 2:30 PM EDT Hospital Encounter [facility] [address] [place] [address] 11/26/2024 3:20 PM EDT Office Visit [facility] [address] [place] [facility] 5th Floor [address] [place] [address] Elisabet Schuster PA [address] [facility] [address] [place] [address] 11/29/2024 2:30 PM EDT Office Visit [facility] [address] [place] [address] Oscar Appiah MD [address] [facility] [address] [place] [address] documented as of this encounter Goals Goal [...] of this encounter Care Teams Director Of Teaching And Learning Relationship Specialty Start Date End Date Asad Victor MD [address] [place] [address] PCP - General 10/07/22 documented as of this encounter
--- OUTSIDE RECORDS SUMMARY | 2024-11-20 10:54 | XMS_ITS | Encounter Summary ---
Author Organization Healthcare Address [address] [place] [address] Care Team Providers Care Nuclear Equipment Test Engineer Name Role Phone Asad Victor MD Primary Care Provider + [phone] Encounter Details Date Type Department Care Team [...] drink first t dino in the morning (EYE-GOLF INSTRUCTOR) to steady your nerves or to [...] Description 11/26/2024 2:00 PM EDT Hospital Encounter [facility] [address] [facility] 5th Floor Wing [address], [address] [place] [address] 11/26/2024 2:30 PM EDT Hospital Encounter [facility] [address] [facility] 5th Floor Wing [address] [place] [address] 11/26/2024 3:20 PM EDT Office Visit [facility] [address] [facility] 5th Floor Wing [address] [place] [address] Elisabet Schuster PA [address] [facility] [address] [place] [address] 11/29/2024 2:30 PM EDT Office Visit [facility] [address] [place] [address] Oscar Appiah MD [address] [facility] [address] [place] [address] documented as of this encounter Visit Diagnoses Not on filedocumented in this encounter Additional Health Concerns Assessment Noted Time A Body Mass Index follow-up plan has been documented for the patient 09/22/2024 2:53 PM EDT documented as of this encounter Care Teams Nuclear Equipment Test Engineer Relationship Specialty Start Date End Date Asad Victor MD [address] [place] [address] PCP - General 10/07/22 documented as of this encounter
--- OUTSIDE RECORDS SUMMARY | 2024-11-20 10:54 | XMS_ITS | Encounter Summary ---
Author Organization Healthcare Address [address] [place] [address] Care Team Providers Care Scale And Skip Car Operator Name Role Phone Asad Victor MD Primary Care Provider + [phone] Encounter Details Date Type Department Care Team (Late st Contact Info) Description 09/20/2024 Orders Only External Location [address] [place] [address] Timothy Marques PA [address] [place] [id number] Social History Tobacco Use Types Packs/Day Years [...] drink first t dino in the morning (EYE-CEMENT TRUCK LOADER) to steady your nerves or to get [...] 11/26/2024 2:00 PM EDT Hospital Encounter [facility] [address] [facility] 5th Floor [address] [place] [address] 11/26/2024 2:30 PM EDT Hospital Encounter [facility] [address] [facility] 5th Floor [address] [place] [address] 11/26/2024 3:20 PM EDT Office Visit [facility] [address] [facility] 5th Floor [address] [place] [address] Elisabet Schuster, PA [address] [facility] [address] [place] [address] 11/29/2024 2:30 PM EDT Office Visit [facility] [address] [place] [address] Oscar Appiah MD [address] [facility] [address] [place] [address] documented as of this encounter Procedures Procedure [...] documented as of this encounter Care Teams Scale And Skip Car Operator Relationship Specialty Start Date End Date Asad Victor MD [address] [place] [address] PCP - General 10/07/22 documented as of this encounter
--- OUTSIDE RECORDS SUMMARY | 2024-11-20 10:54 | XMS_ITS | Encounter Summary ---
Author Organization Healthcare Address [address] [place] [address] Care Team Providers Care Outreach Librarian Name Role Phone Asad Victor MD Primary Care Provider + [phone] Encounter Details Date Type Department Care Team (Late st Contact Info) Description 09/21/2024 Orders Only External Location [address] [place] [address] Provider, External Social History Tobacco Use Types [...] drink first t dino in the morning (EYE-CHICKEN BONER) to steady your nerves or to get [...] [facility] [address] [place] [address] 11/26/2024 2:30 PM EDT Hospital Encounter [facility] [address] [place] [address] 11/26/2024 3:20 PM EDT Office Visit [facility] [address] [facility] 5th Floor [address] [place] [address] Elisabet Schuster PA [address] [facility] [address] [place] [address] 11/29/2024 2:30 PM EDT Office Visit [place] [address] [place] [address] [place] [address] [place] [address] [address] [place] [address] documented as of this encounter [...] documented as of this encounter Care Teams Outreach Librarian Relationship Specialty Start Date End Date Asad Victor MD [address] [place] [address] PCP - General 10/07/22 documented as of this encounter
--- OUTSIDE RECORDS SUMMARY | 2024-11-20 10:55 | XMS_ITS | Clinical Summary ---
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 [place] [address] * (ABNORMAL) Blood gas, arterial (10/17/2024 11:48 [...] 10/17/2024 11:53 AM EDT us Jenna Lopez INTERPRETER LAB BLOOD ORDERABLES Final Re sult [facility] [address] [place] [address] * Surgical Pathology Exam (10/17/2024 10:27 AM EDT) Case Report Surgical Pathology Case: [id number] Authorizing Provider: Terrell Gautam MD Collected: 10/17/2024 1027 Ordering Location: [facility] A OPERATING ROOM Received: 10/17/2024 1325 Pathologist: Haydee Osborne MD Specimen: Other (specify site), left common femoral plaque 10/21/2024 10:[address] [facility] Final Diagnosis A. LEFT COMMON FEMORAL PLAQUE, EXCISION: - CALCIFIED PLAQUE 10/21/2024 10:[address] [facility] at 1016 EDT Clinical Information Critical limb ischemia of left lower extremity [I70.222] 10/21/2024 10:16 AM EDT [facility] Gross Description A. LEFT COMMON FEMORAL PLAQUE Received in formalin labeled l eft common femoral plaque , is one aggregate of red-gabriel hard portions of plaque measuring 3.7 x 2.5 x 0.9 cm. The specimen is serially sectioned and signs sales representative sections are submitted in cassette A1. Cold Time: <1m Kenia Aceves 10/21/2024 10:16 AM EDT [facility] [...] grimaldo Result [facility] [address] [place] [address] * ANESTHESIA ULTRASOUND GUIDED (10/17/2024 8:52 AM [...] by Swetha Villareal MD Staffing Performed: ISH INTERPRETER: Jenna Lopez CRNA us Maria Fernanda Mccallum MD ANESTHESIA ORDERABLES Edite d Result - Final * MD AN ELECTIVE ENDOTRACHEAL AIRWAY, PB ANESTHESIA PLACEHOLDER (10/17/2024 8:03 AM EDT) Narrative Jenna Lopez CRNA - 10/17/2024 8:03 AM EDT Jenna Lopez CRNA 10/17/2024 9:00 AM Airway Date/Time: 10/17/2024 8:03 AM Reason: elective Airway not difficult General Information and Staff Patient location during procedure: OR INTERPRETER: Jenna Lopez CRNA Performed: INTERPRETER Patient Condition Indications for airway management: anesthesia [...] Mccallum MD ANESTHESIA ORDERABLES Final Result * [facility] AN POCUS CARDIAC PROCDOC (10/17/2024 7:18 AM EDT) Narrative Maria Fernanda Mccallum MD - 10/17/2024 7:18 AM EDT Maria Fernanda Mccallum MD 10/17/2024 7:19 AM POC Ultrasound - Cardiac Performed by: Maria Fernanda Mccallum MD Authorized by: Maria Fernnada Mcclalum MD Procedure specific details: Limited Cardiac Ultrasound [...] Trace AR. The images were Saved in EndoShape - E. The study was technically adequate. [...] Modality Other Narrative 10/17/2024 9:50 AM EDT [facility]: Pre-operative CIED Report Assessment and Sara-Procedural Reommendations: Name: Mono Bobby Date: 10/17/2024 : 1960 Age: 64 y.o. Patient has a Cotton Seed Culler: Berger TRENCH DIGGER HELPER-PM Remaining battery longevity adequate. Lead integrity [...] recommendations. Supporting reports can be found in [employer] media file. us Emelina DOSHI CV IMPLANTABLE [...] 7:15 PM EDT CLINICAL INDICATION: s/p L COMPLETION ENGINEER pseudoaneurysm injection TECHNIQUE: Non-invasive, real time duplex [...] sac. The following flow velocities were obtained: COMPLETION ENGINEER: 114 cm/s SFA: 0 cm/s PFA: 278 cm/s Popliteal A: 41 cm/s PSYCHIATRIC NURSING ASSISTANT distal: 43 cm/s DPA: 67 cm/s Pseudoaneurysm sac: 0 cm/s Procedure Note Neil Isaac MD - 09/22/2024 CLINICAL INDICATION: s/p L COMPLETION ENGINEER pseudoaneurysm injection TECHNIQUE: Non-invasive, real time duplex exam of the lower extremity arterialcirculation with Doppler ultrasonic waveform and spectral analysis wasperformed. COMPARISON: Post pseudoaneurysm thrombin injection arterial duplex icpfrcydv29/28/2025; Following thrombin injection of the left common femoral arterypseudoaneurysm, no active flow is noted. Study suggests successfulthrombin injection therapy FINDINGS: Left: Following thrombin injection, an echogenic thrombus is noted within thepseudoaneurysm sac. Color and pulsed Doppler analysis demonstrates anabsence of flow within the pseudoaneurysm sac. The following flowvelocities were obtained: COMPLETION ENGINEER: 114 cm/s SFA: 0 cm/s PFA: 278 cm/s Popliteal A: 41 cm/s PSYCHIATRIC NURSING ASSISTANT distal: 43 cm/s DPA: 67 cm/s Pseudoaneurysm [...] ECG Atrial Rate 85 BPM MUSE ECG MD Interval 146 ms MUSE ECG QRSD Interval 128 ms MUSE ECG QT Interval 390 ms MUSE ECG QTC Interval 464 ms MUSE ECG P Mission 52 degrees MUSE ECG R Mission 263 degrees MUSE ECG T Wave Mission 57 degrees MUSE ECG Diagnosis Atrial-sensed ventricular-pace [...] 1/2 Differentiation (09/20/2024 10:33 PM EDT) Pathologist [facility] HIV 1 & 2 Antibody/Antigen Screen Non Reactive Non Reactive 09/20/2024 11:39 PM EDT [facility] Comment:Screening for HIV 1 & 2 antibodies, and P24 antigen is NONREACTIVE. No confirmatory testing is required. Blood Venous blood specimen / Unknown Venipuncture / Unknown 09/20/2024 10:33 PM EDT 09/20/2024 10:54 PM EDT us Giorgi Perkins MD LAB BLOOD ORDERABLES Final Result Performing Organization Address City/[facility]/ZIP Co de Phone Number [facility] [address] [place] [address] * Hepatitis C Antibody - ED (09/20/2024 10:33 PM EDT) Pathologist [facility] Hepatitis C Antibody Negative Negative 09/20/2024 11:39 PM EDT [facility] Blood Venous blood specimen / Unknown Venipuncture / Unknown 09/20/2024 10:33 PM EDT 09/20/2024 10:53 PM EDT Giorgi Perkins MD LAB BLOOD ORDERABLES Final Result [facility] [address] [place] [address] * APTT (09/20/2024 10:33 PM EDT) Pathologist [facility] aPTT 28 25 - 35 sec LAB COAGULATION METHOD 09/21/2024 12:19 AM EDT [facility] Blood Venous blood specimen / Unknown Venipuncture / Unknown 09/20/2024 10:33 PM EDT 09/20/2024 10:42 PM EDT us Giorgi Perkins MD LAB BLOOD ORDERABLES Final Result [facility] [address] [place] [address] from Last 3 Months Additional Health Concerns Active Problems Noted Date Diagnosed Date Autogenerated Problem 09/23/2024 Insurance [employer]ISI [address] [place] [address] MEDICAID [facility] MEDICARE Advance Directives * Full Code [...] Patient has decision-making capacity? Yes Care Teams Bag Machine Adjuster Relationship Specialty Start Date End Date Asad Victor MD [address] [place] [address] PCP - General 10/07/22
--- OUTSIDE RECORDS SUMMARY | 2024-11-20 10:55 | XMS_ITS | Encounter Summary ---
Author Organization [facility] Address [address] [place] [address] Care Team Providers Care Internetworking Technician Name Role Phone Asad Victor MD Primary Care Provider + [phone] Encounter Details Date Type Department Care Team [...] drink first t dino in the morning (EYE-SCRAP HOOKER) to steady your nerves or to get [...] 11/26/2024 2:00 PM EDT Hospital Encounter [facility] Vascular Lab [address]th Floor [address] [place] [address] 11/26/2024 2:30 PM EDT Hospital Encounter [facility] [address] [place] [address] 11/26/2024 3:20 PM EDT Office Visit [facility] [address] [place] [address] Elisabet Schuster, PA [address] [place] [address] 11/29/2024 2:30 PM EDT Office Visit [facility] [address] [facility] [place] [address] Oscar Appiah MD [address] [facility] [address] [place] [address] documented as of this encounter [...] documented as of this encounter Care Teams Internetworking Technician Relationship Specialty Start Date End Date Asad Victor MD [address] [place] [address] PCP - General 10/07/22 documented as of this encounter
--- OUTSIDE RECORDS SUMMARY | 2024-11-20 10:55 | XMS_ITS | Encounter Summary ---
Author Organization Healthcare Address [address] [place] [address] Care Team Providers Care Valve Fitter Name Role Phone Asad Victor MD Primary Care Provider + [phone] Encounter Details Date Type Department Care Team (Late st Contact Info) Description 09/20/2024 Orders Only External Location [address] [place] [address] Timothy Marques PA [address] [place] [id number] Social History Tobacco Use Types Packs/Day Years [...] drink first t dino in the morning (EYE-TECHNICIAN CHEMICAL CLEANING) to steady your nerves or to get [...] Encounter [facility] [address] [facility] 5th Floor [address] [place] [address] 11/26/2024 2:30 PM EDT Hospital Encounter [facility] [address] [facility] 5th Floor [address] [place] [address] 11/26/2024 3:20 PM EDT Office Visit [facility] [address] [facility] 5th Floor [address] [place] [address] Elisabet Schuster, PA [address] [facility] [address] [place] [address] 11/29/2024 2:30 PM EDT Office Visit [facility] [address] [place] [address] Oscar Appiah MD [address] [facility] [address] [place] [address] documented as of this encounter Procedures Procedure [...] documented as of this encounter Care Teams Valve Fitter Relationship Specialty Start Date End Date Asad Victor MD [address] [place] [address] PCP - General 10/07/22 documented as of this encounter
--- OUTSIDE RECORDS SUMMARY | 2024-11-20 10:56 | XMS_ITS | Encounter Summary ---
Author Organization Healthcare Address [address] [place] [id number] Care Team Providers Care Inspector Final Assembly Conveyor Line Name Role Phone Asad Victor MD Primary Care Provider + [phone] Encounter Details Date Type Department Care Team (Late st Contact Info) Description 10/22/2024 Telephone Vascular Surgery [address] [place] [address] Alison Beltrán, MOTORCYCLE MAKER, DNP [address] [facility] [address] [place] [address] Social History Tobacco Use Types Packs/Day Years [...] drink first t dino in the morning (EYE-ANCILLARY SERVICES MANAGER) to steady your nerves or to [...] Notes * Telephone Encounter - Alison Beltrán, MOTORCYCLE MAKER, DNP - 10/22/2024 11:39 AM EDT Returned patient call. Patient s/p left common/superficial/profunda femoral thromboendarterectomy with bovine patch repair and left external iliac artery/[employer] LABOURER stent with Dr Gautam on 10/17/24. Patient [...] Description 11/26/2024 2:00 PM EDT Hospital Encounter [facility] Vascular Lab [address] [place] [address] 11/26/2024 2:30 PM EDT Hospital Encounter [facility] Lab [address] [place] [address] 11/26/2024 3:20 PM EDT Office Visit [facility] [address] [place] [address] Elisabet Schuster, GLENDA [address] [facility] [address] [place] [address] 11/29/2024 2:30 PM EDT Office Visit [facility] [address] [place] [address] Oscar Appiah MD [address] [facility] [address] [place] [address] documented as of this encounter [...] as of this encounter Care Teams Inspector Final Assembly Conveyor Line Relationship Specialty Start Date End Date Asad Victor MD [address] [place] [address] PCP - General 10/07/22 documented as of this encounter
--- OUTSIDE RECORDS SUMMARY | 2024-11-20 10:57 | XMS_ITS | Encounter Summary ---
Author Organization Healthcare Address [address] [place] [address] Care Team Providers Care Brand Advocate Name Role Phone Asad Victor MD Primary Care Provider + [phone] Encounter Details Date Type Department Care Team (Late st Contact Info) Description 10/17/2024 Orders Only External Location [address] [place] [address] Provider, External Social History Tobacco Use Types [...] any time in the past 12 m [facility], were you homeless or [...] Have you had a drink first t dion in the morning (EYE-PRESS SETUP OPERATOR) to steady your nerves or to get rid of a hangover? 0 10/18/2021 CAGE Questionnaire Score 0 022 Utilities Answer Date Recorded In the past 12 months has th e ishBowl, gas, oil, or water [employer] threatened to shut off services in your [...] [facility] Lab [address] [facility] 5th Floor [address], [address] [place] [address] 11/26/2024 2:30 PM EDT Hospital Encounter [facility]ascular Lab [address] [facility] 5th Floor [address] [place] [address] 11/26/2024 3:20 PM EDT Office Visit [facility] [address] [facility] 5th Floor [address] [place] [address] Elisabet Schuster PA [address] [place] [address] 11/29/2024 2:30 PM EDT Office Visit [facility] [address] [place] [address] Oscar Appiah MD [address] [facility][1] [address] [place] [address] documented as of this encounter [...] as of this encounter Care Teams Brand Advocate Relationship Specialty Start Date End Date Asad Victor MD [address] [place] [address] PCP - General 10/07/22 documented as of this encounter
--- OUTSIDE RECORDS SUMMARY | 2024-11-20 10:57 | XMS_ITS | Encounter Summary ---
Author Organization [facility] Address [address] [place] [address] Care Team Providers Care Bilingual Customer Service Name Role Phone Asad Victor MD Primary Care Provider + [phone] Encounter Details Date Type Department Care Team [...] drink first t dino in the morning (EYE-MOLDER HAND) to steady your nerves or to [...] 11/26/2024 2:00 PM EDT Hospital Encounter [facility] Vascular Lab [address] [place] [address] 11/26/2024 2:30 PM EDT Hospital Encounter [facility] Vascular Lab [address] 5[address] Floor [address] [place] [address] 11/26/2024 3:20 PM EDT Office Visit [facility] [address] [place] [address] Elisabet Schuster, PA [address] [facility] [address] [place] [address] 11/29/2024 2:30 PM EDT Office Visit [facility] [address] [facility] [place] [address] Oscar Appiah MD [address] [facility] [address] [place] [address] documented as of this encounter [...] documented as of this encounter Care Teams Bilingual Customer Service Relationship Specialty Start Date End Date Asad Victor MD [address] [place] [address] PCP - General 10/07/22 documented as of this encounter
--- OUTSIDE RECORDS SUMMARY | 2024-11-20 10:57 | XMS_ITS | Encounter Summary ---
Author Organization Healthcare Address [address] [place] [address] Care Team Providers Care Poultry Hatchery Man Name Role Phone Asad Victor MD Primary Care Provider + [phone] Encounter Details Date Type Department Care Team (Late st Contact Info) Description 11/05/2024 Orders Only External Location [address] [place] [address] Provider, External Social History Tobacco Use Types [...] drink first t dino in the morning (EYE-MOBILE THERAPIST) to steady your nerves or to get rid of a hangover? 0 10/18/2021 CAGE Questionnaire Score 0 022 Utilities Answer Date Recorded In the past 12 months has th e [email or web address], gas, oil, or water company threatened to [...] Description 11/26/2024 2:00 PM EDT Hospital Encounter [facility] Lab [address] [facility] 5th Floor [address] [place] [address] 11/26/2024 2:30 PM EDT Hospital Encounter [facility] [address] [facility] 5th Floor [address] [place] [address] 11/26/2024 3:20 PM EDT Office Visit [facility] [address] [place] [address] Elisabet Schuster PA [address] [place] [address] 11/29/2024 2:30 PM EDT Office Visit [facility] [address] [place] [address] Oscar Appiah MD [address] [facility] [address] [place] [address] documented as of this encounter [...] of this encounter Care Teams Poultry Hatchery Man Relationship Specialty Start Date End Date Asad Victor MD [address] [place] [address] PCP - General 10/07/22 documented as of this encounter
--- OUTSIDE RECORDS SUMMARY | 2024-11-20 10:57 | XMS_ITS | Encounter Summary ---
Author Organization [facility] Address [address] [place] [address] Care Team Providers Care Record Center Specialist Name Role Phone Asad Victor MD Primary Care Provider + [phone] Encounter Details Date Type Department Care Team [...] first t dino in the morning (EYE-DIRECTOR GEOPHYSICAL LABORATORY) to steady your nerves or to get [...] Description 11/26/2024 2:00 PM EDT Hospital Encounter [facility] Lab [address] 5th [address] [place] [address] 11/26/2024 2:30 PM EDT Hospital Encounter [facility] Lab [address] 5th Floor [address] [place] [address] 11/26/2024 3:20 PM EDT Office Visit [facility] [address] 5th Floor [address] [place] [address] Elisabet Shcuster, PA [address] [place] [address] 11/29/2024 2:30 PM EDT Office Visit [facility] [address] [facility] [place] [address] Oscar Appiah MD [address] [facility] [address] [place] [address] documented as of this encounter [...] as of this encounter Care Teams Record Center Specialist Relationship Specialty Start Date End Date Asad Victor MD [address] [place] [address] PCP - General 10/07/22 documented as of this encounter
--- OUTSIDE RECORDS SUMMARY | 2024-11-20 10:57 | XMS_ITS | Encounter Summary ---
Author Organization [facility] Address [address] [place] [address] Care Team Providers Care Cloth Piecer Name Role Phone Asad Victor MD Primary Care Provider + [phone] Encounter Details Date Type Department Care Team [...] in the past 12 m [facility], were you homeless or living in [...] drink first t dino in the morning (EYE-WINDMILL MECHANIC) to steady your nerves or to [...] Month) No 11/06/2024 2:00 PM EDT Brigitte Castellon, RN 6. Suicidal Behavior (Lifetime) No 2:00 PM EDT Brigitte Castellon, RN documented as of this encounter Plan of Treatment Upcoming Encounters Date Type Department Care Team (Late st Contact Info) Description 11/26/2024 2:00 PM EDT Hospital Encounter [facility] [address] [place] [address] 11/26/2024 2:30 PM EDT Hospital Encounter [facility] [address] [place] [address] 11/26/2024 3:20 PM EDT Office Visit [facility] [address] [facility] 5th Floor Wing [address], [address] [place] [address] Elisabet Schuster, PA [address] [place] [address] 11/29/2024 2:30 PM EDT Office Visit [facility] [id number] [place] [address] Oscar Appiah MD [address] [place] [address] [address] [place] [address] documented as of this encounter [...] documented as of this encounter Care Teams Cloth Piecer Relationship Specialty Start Date End Date Asad Victor MD [address] [place] [address] PCP - General 10/07/22 documented as of this encounter
--- OUTSIDE RECORDS SUMMARY | 2024-11-20 10:58 | XMS_ITS | Encounter Summary ---
Author Organization Healthcare Address [address] [place] [address] Care Team Providers Care Customer Service Clerk Name Role Phone Asad Vitcor MD Primary Care Provider + [phone] Encounter Details Date Type Department Care Team (Late st Contact Info) Description 11/15/2024 Clinical Support [facility] [address] [place] [address] Charly Orlando, PharmD [address] [place] [address] [address] [place] [address] Social History Tobacco Use Types [...] drink first t dino in the morning (EYE-LIVERY CAR DRIVER) to steady your nerves or to get rid of a hangover? 0 10/18/2021 CAGE Questionnaire Score 0 022 Utilities Answer Date Recorded In the past 12 months has th e [employer], gas, oil, or water company threatened to [...] Description 11/26/2024 2:00 PM EDT Hospital Encounter [facility] [address] 5th Floor Wing [address], [address] [place] [address] 11/26/2024 2:30 PM EDT Hospital Encounter [facility] [address] 5th Floor Wing [address] [place] [address] 11/26/2024 3:20 PM EDT Office Visit [facility] [address] 5th Floor Wing [address], [address] [place] [address] Elisabet Schuster PA [address] [place] [address] 11/29/2024 2:30 PM EDT Office Visit [facility] [address] [facility] [place] [address] Oscar Appiah MD [address] [facility] [address] [place] [address] documented as of this encounter [...] documented as of this encounter Care Teams Customer Service Clerk Relationship Specialty Start Date End Date Asad Victor MD [address] [place] [address] PCP - General 10/07/22 documented as of this encounter
[2024-11-20 11:00] VITALS: BP 130/52; PULSE 64; RESP 18; TEMP 36.3; O2SAT 94
[2024-11-20] MEDS: SODIUM CHLORIDE 0.9% 10ML FLUSH SYRINGE 10 ML IV (11:00)
--- OUTSIDE RECORDS SUMMARY | 2024-11-20 11:00 | XMS_ITS | Encounter Summary ---
Author Organization [facility] Address [address] [place] [address] Care Team Providers Care Mica Sizer Name Role Phone Asad Victor MD Primary Care Provider + [phone] Encounter Details Date Type Department Care Team [...] drink first t dino in the morning (EYE-ENDS BREAKAGE CLERK) to steady your nerves or to [...] [facility] [address] [facility] 5th Floor Wing [address], [address] [place] [address] 11/26/2024 2:30 PM EDT Hospital Encounter [facility] [address] [facility] 5th Floor Wing [address] [place] [address] 11/26/2024 3:20 PM EDT Office Visit [facility] [address] 5th Floor [address] [place] [address] Elisabet Schuster PA [address] [place] [address] 11/29/2024 2:30 PM EDT Office Visit [facility] [address] [place] [address] Oscar Appiah MD [address] [facility] [address] [place] [address] documented as of this encounter Visit Diagnoses Not on filedocumented in this encounter Additional Health Concerns Assessment Noted Time A Body Mass Index follow-up plan has been documented for the patient 09/22/2024 2:53 PM EDT documented as of this encounter Care Teams Mica Sizer Relationship Specialty Start Date End Date Asad Victor MD [address] [facility] [address] [place] [address] PCP - General 10/07/22 documented as of this encounter
[2024-11-20] MEDS: SODIUM CHLORIDE 0.9% IV (11:03)
[2024-11-20] MEDS: MICAFUNGIN SODIUM IV (11:03)
--- NOTE | 2024-11-20 11:47 | PC.NURSE ---
Addendum entered by Masha Green RN 11/20/24 11:54: patient had to leave because of confusion with [employer] and need to make it to appointment in [place] Original Note: Patient stated after his first bag was infused he would have to leave before administering his second bag (INVANZ). he plans on coming back this evening for the second antibiotic
[2024-11-20 12:00] VITALS: BP 150/50; PULSE 66; RESP 18; TEMP 36.3; O2SAT 96
[2024-11-20] MEDS: ERTAPENEM SODIUM 1 GM in 0.9 % SODIUM CHLORIDE 50 ML IV (12:05)
[2024-11-20 12:40] VITALS: BP 160/57; PULSE 65; RESP 18; TEMP 36.3; O2SAT 94
== END 2024-11-20 12:45 | disposition home or self-care (01) ==
LOC: INF 10:51
PROVIDERS: PCP Family Medicine
DX: E10.69 Type 1 diabetes mellitus with other specified complication (principal); E78.2 Mixed hyperlipidemia
CPT/HCPCS: 96365; 96367; J1335; J2248

== ENCOUNTER 2024-11-21 08:04 | Outpatient (CLI) | payer MEDICARE, OTHER, SELFPAY ==
--- OUTSIDE RECORDS SUMMARY | 2024-09-20 21:25 | XMS_ITS | Encounter Summary ---
Author Organization [facility] Address [address] [id number] Care Team Providers Care Mortar Worker Name Role Phone Asad Victor MD Primary Care Provider + [phone] Reason for Visit * Auth/Cert (Routine) Specialty Diagnoses / Procedures Referred By Contac t Referred To Contact Diagnoses Pseudoaneurysm of left femoral artery (CMS/HCC) PSUEDO ANEURYSM Nathaly Nowak MD [address] [address] Phone: tel: fax: [facility] Emergency Department [address] [place] [address] Phone: tel: Referral ID Status Reason Start Date Expiration Date Visits Re quested Visits Authorized [id number] 1 1 Encounter Details Date Type Department Care Team (Latest Contact Info) Description 09/20/2024 9:25 PM EDT - 09/22/2024 4:00 PM EDT Hospital Encounter [facility] Inpatient [address] [place] [id number] Robbie Braxton MD [address] [place] [address] Nathaly Nowak MD [id number] [place] [address] Pseudoaneurysm of left femoral artery [...] drink first t dino in the morning ([employer]) to steady your nerves or to get [...] to schedule you next surgery. Questions: Call [phone] during business hours on week or call [facility]'s after hours at [phone] to speak with a resident prison psychiatrist for Vascular Surgery after 5pm or on [...] Carmona with any questions or concerns at [phone]. It is important that you get your [...] T2DM, HLD, HTN, RLS who presented to [facility] with a large left common femoral [...] discharge instructions. No distress noted. 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 Awaiting his ride to arrive. Patient states his discharge ride is about 40 minutes away. * [facility] - Melecio Vega RN - 09/22/2024 2:52 PM EDT Images from the original note were not included. [id number] Peripheral Artery Disease (PAD) Peripheral artery disease [...] cause. Last Reviewed Date: 2024 00:00:00 ?? [id number] [employer]. All rights reserved. This information is not intended as a substitute for professional medical care. Always follow your healthcare professional's instructions. * [facility] Melecio V[facility] RN - 09/22/2024 2:52 PM EDT Images from the original note were not included. [id number] Taking Aspirin for Atherosclerosis Aspirin is a [...] This includes: ? All prescription medicines ? Kusv-qlt-hdobdob medicines ? Herbs, vitamins, and other supplements [...] pain Last Reviewed Date: 2022 00:00:00 ?? [id number] [employer]. All rights reserved. This information is not intended as a substitute for professional medical care. Always follow your healthcare professional's instructions. * Discharge Summary - Anthony Keenan MD - 09/22/2024 2:32 PM EDT Images from the original note were not included. Hospitalization Admit Date/Time: 09/20/2024 9:25 PM Admitting Attending: Nathaly Nowak Discharge Date: 09/22/2024 Discharge Attending Physician: Nathaly Nwoak MD PCP name and Address: Asad Victor MD (Inactive) [address] [place] [address] / [facility] [address] Referring provider name and address: Timothy Marques PA [address] [place] [address] Chief Concern, Brief History of Present Illness, and Hospital Course Mono Bobby is a 64 y.o. male with PMHx notable for COPD, CAD s/p PCI with pacemaker on Xarelto, T2DM, HLD, HTN, RLS who presented to [facility] with a large left common femoral [...] Your Medications These medications were sent to [facility] - [place], [place] - [address] [facility] [address] oxyCODONE 5 MG immediate release tablet Discharge [...] soap and water daily. Pat to dry. [place]/ sutures will be removed at postoperative follow [...] to schedule you next surgery. Questions: Call [phone] during business hours on weekdays or call [facility]'s after hours at [phone] to speak with a resident prison psychiatrist for Vascular Surgery after 5pm or on [...] Carmona with any questions or concerns at [phone]. It is important that you get your [...] and Manage Fall Risk Flowsheets (Taken 09/22/2024 8503) Safety Promotion/Fall Prevention: activity supervised assistive device/personal [...] Regular diet - Repeat duplex 09/22 - [facility] - consider IO cath if sensation of [...] from the original note were not included. [facility] Department of Surgery Division of Vascular Surgery Surgery Progress Note 09/21/24 Mono Bobby Subjective Subjective: HPI Mono Bobby is a 64 y.o. male with PMHx notable for COPD, CAD s/p PCI with pacemaker on Xarelto, T2DM, HLD, HTN, RLS who presented to 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 09/21: Thrombin injection of left common femoral artery pseudoaneurysm Interval: NAEON. He reports feeling well. Still having some groin pain. Duplex confirmed PSA. Discussed treatment with thrombin injection and pt would like to proceed. AF HDS RA No I/O Edited by: Anthony Keenan MD at 09/21/2024 4463 Review of Systems: Relevant review of systems [...] T2DM, HLD, HTN, RLS who presented to 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 Duplex today confirmed it was a pseudoaneurysm. Thrombin injection performed today. He tolerated the procedure well. POC later tonight. Plan: [ ] Post op check at 1999 - Continue strict bedrest - Regular diet - Duplex 09/21: showed QUAD STAYER pseudoaneurysm - Repeat duplex 09/22 - [facility] Edited by: Anthony Keenan MD at 09/21/2024 6740 Dispo: Continue Current Level of Care Philipp Keenan MD General Surgery, PGY 1 Pager: [phone] Cosigned by Terrell Gautam MD at 09/23/2024 [...] femoral artery pseudoaneurysm Attending Surgeon(s): Terrell Gautam Thread Trimmer(s): Jerry Holcomb Anesthesia: local ASA: 3 Blood [...] pseudoaneurysm sac is far away from the hopland artery as possible. Very slowly 0.2 cc [...] from the original note were not included. [facility] Department of Surgery Division of Vascular Surgery [...] HLD, HTN, RLS who presented to the [facility] on 09/20/2024 as a transfer from an [...] At that time, the patient presented to [facility] and underwent an updated CTA which demonstrated concern for a left common femoral artery pseudo aneurysm. He was transferred to the [facility] for a higher level of [...] MINUTES. IF NO RELIEF AFTER 3 DOSES [id number]/GO TO ER 11/02/21 Darby Camara MD pravastatin [...] T2DM, HLD, HTN, RLS who presented to [facility] with a large left common femoral [...] ongoing surgical planning. Plan: - Admit to [facility] - Strict bedrest - NPO, mIVF - Will discuss surgical options in the morning Dispo: Admit to [facility] CODE STATUS: full code This Consult, Assessment, and Plan has been discussed with Dr. Nowak, Attending Physician Shaila Lord [1] Past Medical History: Diagnosis Date Arthritis Old myocardial infarction History of myocardial infarction [2] No Known Allergies [3] Past Surgical History: Procedure Laterality Date ANKLE SURGERY Right CAROTID ENDARTERECTOMY N/A Endarterectomy Carotid Artery from [facility] CORONARY ANGIOPLASTY Left Coronary Angiography With Concomitant Left Heart Catheterization from [facility] CORONARY ARTERY BYPASS GRAFT N/A CABG from [facility] ELBOW SURGERY Right OTHER SURGICAL HISTORY N/A Reported Prior Surgical / Procedural History from [facility] [4] Family History Problem Relation Name Age [...] MINUTES. IF NO RELIEF AFTER 3 DOSES [id number]/GO TO ER pravastatin (Pravachol) 80 MG tablet [...] accompanied by pain [facility]. In the emergency department they obtained a CTA with runoff of the lower extremities which found a left-sided femoral pseudoaneurysm. The patient was transferred here for higher level of care. He has not had any lower extremity pallor, pain, weakness, or sensory changes. History provided by: Patient and medical records case resolution specialist used: No Patient History Past Medical History[1] [...] CAROTID ENDARTERECTOMY N/A Endarterectomy Carotid Artery from [facility] CORONARY ANGIOPLASTY Left Coronary Angiography With Concomitant Left Heart Catheterization from [facility] CORONARY ARTERY BYPASS GRAFT N/A CABG from [facility] ELBOW SURGERY Right OTHER SURGICAL HISTORY N/A Reported Prior Surgical / Procedural History from [facility] [3] Family History Problem Relation Name Age [...] 9:22 PM EDT Arrived from [facility] pt transferred from [facility] c/o left groin pain pt had stent x2 on 09/12 went to cardiology and was told to go to hospital. documented in this encounter Plan of Treatment Upcoming Encounters Date Type Department Care Team (Late st Contact Info) Description 11/26/2024 2:00 PM EDT Hospital Encounter [facility] [address] [place] [address] 11/26/2024 2:30 PM EDT Hospital Encounter [facility] [address] [place] [address] 11/26/2024 3:20 PM EDT Office Visit [facility] [address] [place] [address] Elisabet Schuster, GLENDA [address] [place] [address] 11/29/2024 2:30 PM EDT Office Visit [facility] [address] [address] Oscar Appiah MD [address] [place] [address] documented as of this encounter Procedures Procedure [...] Comment 09/22/2024 11:11 AM EDT [facility]ALTH[facility]ARE [facility] Forestry Laborer ID Zena Rios 025 11:11 AM EDT HEALTHCARE LAB Device ID [id number] 09/22/2024 11:11 AM EDT HEALTHCARE LAB Specimen Type POC Capillary 09/22/2024 11:11 AM EDT [facility]ALTH[facility]ARE [facility] Blood Capillary blood specimen / Unknown 09/22/2024 11:06 AM EDT 09/22/2024 11:11 AM EDT us Nathaly Nowak MD LAB POINT OF CARE TE ST DOCKED DEVICE UNSOLICITED RESULTS Final Result Performing Organization Address City/State/[facility] Co de Phone Number HEALTHCARE LAB [address] [place] [address] * VAS US Arterial Duplex Lower Extremity [...] 7:15 PM EDT CLINICAL INDICATION: s/p L QUAD STAYER pseudoaneurysm injection TECHNIQUE: Non-invasive, real time duplex [...] sac. The following flow velocities were obtained: QUAD STAYER: 114 cm/s SFA: 0 cm/s PFA: 278 cm/s Popliteal A: 41 cm/s CLINICAL TECH distal: 43 cm/s DPA: 67 cm/s Pseudoaneurysm sac: 0 cm/s Procedure Note Neil Isaac MD - 09/22/2024 CLINICAL INDICATION: s/p L QUAD STAYER pseudoaneurysm injection TECHNIQUE: Non-invasive, real time duplex exam of the lower extremity arterialcirculation with Doppler ultrasonic waveform and spectral analysis wasperformed. COMPARISON: Post pseudoaneurysm thrombin injection arterial duplex flsofwial51/28/2025; Following thrombin injection of the left common femoral arterypseudoaneurysm, no active flow is noted. Study suggests successfulthrombin injection therapy FINDINGS: Left: Following thrombin injection, an echogenic thrombus is noted within thepseudoaneurysm sac. Color and pulsed Doppler analysis demonstrates anabsence of flow within the pseudoaneurysm sac. The following flowvelocities were obtained: QUAD STAYER: 114 cm/s SFA: 0 cm/s PFA: 278 cm/s Popliteal A: 41 cm/s CLINICAL TECH distal: 43 cm/s DPA: 67 cm/s Pseudoaneurysm [...] Comment 09/22/2024 7:22 AM EDT HEALTHCARE LAB Forestry Laborer ID Zena Rios 025 7:22 AM EDT [facility] Device ID [id number] 09/22/2024 7:22 AM EDT [facility] Specimen Type POC Capillary 09/22/2024 7:22 AM EDT [facility] Blood Capillary blood specimen / Unknown 09/22/2024 7:19 AM EDT 09/22/2024 7:22 AM EDT Result [facility] Nathaly Nowak MD LAB POINT OF CARE TE ST DOCKED DEVICE UNSOLICITED RESULTS Final Result [facility]ARE [facility] [address] [place] [address] * Magnesium (09/22/2024 3:49 AM EDT) Pathologist [facility] Magnesium, Plasma 2.1 1.9 - 2.4 mg/dL 09/22/2024 4:49 AM EDT [facility] Blood Venous blood specimen / Unknown Venipuncture / Unknown 09/22/2024 3:49 AM EDT 09/22/2024 4:12 AM EDT us Nathaly Nowak MD LAB BLOOD ORDERABLES Final Resu lt [facility] [address] [place] [address] * Phosphorus (09/22/2024 3:49 AM EDT) [facility] Phosphorus, Plasma 2.9 2.5 - 4.5 mg/dL 09/22/2024 4:49 AM EDT [facility] Blood Venous blood specimen / Unknown Venipuncture / Unknown 09/22/2024 3:49 AM EDT 09/22/2024 4:12 AM EDT Nathaly Nowak MD LAB BLOOD ORDERABLES Final Resu lt Performing Organization Address City/[facility]/ZIP Co de Phone Number [facility] [address] [place] [address] * (ABNORMAL) Basic metabolic panel (09/22/2024 3:49 AM EDT) [facility] Glucose, Plasma 132(H) 74 - 99 mg/dL 09/22/2024 4:49 AM EDT [facility] BUN, Plasma 15 8 - 23 mg/dL 09/22/2024 4:49 AM EDT [facility] Creatinine, Plasma 0.78 0.70 - 1.20 mg/dL 09/22/2024 4:49 AM EDT [facility] BUN/Creatinine Ratio 19 09/22/2024 4:49 AM EDT [facility] Sodium, Plasma 137 136 - 145 mmol/L 09/22/2024 4:49 AM EDT [facility] Potassium, Plasma 4.5 3.6 - 4.9 mmol/L 09/22/2024 4:49 AM EDT [facility] Chloride, Plasma 104 97 - 107 mmol/L 09/22/2024 4:49 AM EDT [facility] CO2, Plasma 24 22 - 29 mmol/L 09/22/2024 4:49 AM EDT [facility] Anion Gap 9 6 - 16 mmol/L 09/22/2024 4:49 AM EDT [facility] Total Calcium, Plasma 9.2 8.9 - 10.2 mg/dL 09/22/2024 4:49 AM EDT [facility] eGFRcr 99.0 mL/min/1.7 3m*2 09/22/2024 4:49 AM EDT [facility] Comment:Reported eGFRcr in m L/min/1.73m2 is based the CKD-EPI 2020 equation that does not use a race coefficient. Blood Venous blood specimen / Unknown Venipuncture / Unknown 09/22/2024 3:49 AM EDT 09/22/2024 4:12 AM EDT us Nathaly Nowak MD LAB BLOOD ORDERABLES Final Resu lt [facility] [address] [place] [address] * (ABNORMAL) CBC (09/22/2024 3:49 AM EDT) WBC Count 11.68(H) 3.70 - 10.30 10*3/uL LAB HEMATOLOGY METHOD 09/22/2024 4:26 AM EDT [facility] RBC Count 2.89(L) 4.60 - 6.10 10*6/uL LAB HEMATOLOGY METHOD 09/22/2024 4:26 AM EDT [facility] HGB 8.9(L) 13.7 - 17.5 g/dL LAB HEMATOLOGY METHOD 09/22/2024 4:26 AM EDT [facility] HCT 26.7(L) 40.0 - 51.0 % LAB HEMATOLOGY METHOD 09/22/2024 4:26 AM EDT [facility] Platelet Count 454(H) 155 - 369 10*3/uL LAB HEMATOLOGY METHOD 09/22/2024 4:26 AM EDT [facility] MCV 92 79 - 98 fL LAB HEMATOLOGY METHOD 09/22/2024 4:26 AM EDT [facility] MCH 30.8 26.0 - 32.0 pg LAB HEMATOLOGY METHOD 09/22/2024 4:26 AM EDT [facility] MCHC 33.3 30.7 - 35.5 g/dL LAB HEMATOLOGY METHOD 09/22/2024 4:26 AM EDT [facility] RDW 13.6 11.5 - 14.5 % LAB HEMATOLOGY METHOD 09/22/2024 4:26 AM EDT [facility] MPV 8.8 8.8 - 12.5 fL LAB HEMATOLOGY METHOD 09/22/2024 4:26 AM EDT [facility] nRBC 0.0 <=0.0 per 100 WBCs LAB HEMATOLOGY METHOD 09/22/2024 4:26 AM EDT [facility] Blood Venous blood specimen / Unknown Venipuncture / Unknown 09/22/2024 3:49 AM EDT 09/22/2024 4:14 AM EDT us Nathaly Nowak MD LAB BLOOD ORDERABLES Final Resu lt Performing Organization Address City/[facility]/ZIP Co de Phone Number [facility] [address] [place] [address] * (ABNORMAL) POCT glucose meter (09/21/2024 8:45 [...] 09/21/2024 8:47 PM EDT [facility] Forestry Laborer ID Joy Reich 025 8:47 PM EDT HEALTHCARE LAB Device ID [id number] 09/21/2024 8:47 PM EDT [facility]ALTH[facility]ARE LAB Specimen Type POC Capillary 09/21/2024 8:47 PM EDT [facility] Blood Capillary blood specimen / Unknown 09/21/2024 8:45 PM EDT 09/21/2024 8:47 PM EDT us Nathaly Nowak MD LAB POINT OF CARE TE ST DOCKED DEVICE UNSOLICITED RESULTS Final Result Performing Organization Address City/[facility]/ZIP Co de Phone Number [facility] [address] [place] [address] * (ABNORMAL) POCT glucose meter (09/21/2024 5:09 [...] Comment 09/21/2024 5:11 PM EDT [facility]ALTHCARE LAB Forestry Laborer ID Jojo Lange 025 5:11 PM EDT HEALTHCARE LAB Device ID [id number] 09/21/2024 5:11 PM EDT HEALTH[facility]ARE LAB Specimen Type POC Capillary 09/21/2024 5:11 PM EDT [facility] Blood Capillary blood specimen / Unknown 09/21/2024 5:09 PM EDT 09/21/2024 5:11 PM EDT us Nathaly Nowak MD LAB POINT OF CARE TE ST DOCKED DEVICE UNSOLICITED RESULTS Final Result [facility] [address] [place] [address] * [facility]AS US Arterial Duplex Lower Extremity [...] 09/21/2024 7:35 PM EDT CLINICAL INDICATION: s/p QUAD STAYER pseudoaneurysm injection TECHNIQUE: Non-invasive, real time duplex exam of the lower extremity arterial circulation with Doppler ultrasonic waveform and spectral analysis was performed. COMPARISON: None. FINDINGS: Left: Following thrombin injection, an echogenic thrombus is noted within the pseudoaneurysm sac. Color and pulsed Doppler analysis demonstrates an absence of flow within the pseudoaneurysm sac. The following flow velocities were obtained: QUAD STAYER: 55 cm/s SFA: 0 cm/s Popliteal A: 51 cm/s CLINICAL TECH distal: 35 cm/s DPA: 61 cm/s Pseudoaneurysm sac: 0 cm/s Procedure Note Neil Isaac MD - 09/21/2024 CLINICAL INDICATION: s/p QUAD STAYER pseudoaneurysm injection TECHNIQUE: Non-invasive, real time duplex exam of the lower extremity arterialcirculation with Doppler ultrasonic waveform and spectral analysis wasperformed. COMPARISON: None. FINDINGS: Left: Following thrombin injection, an echogenic thrombus is noted within thepseudoaneurysm sac. Color and pulsed Doppler analysis demonstrates anabsence of flow within the pseudoaneurysm sac. The following flowvelocities were obtained: QUAD STAYER: 55 cm/s SFA: 0 cm/s Popliteal A: 51 cm/s CLINICAL TECH distal: 35 cm/s DPA: 61 cm/s Pseudoaneurysm [...] POCT glucose meter (09/21/2024 1:04 PM EDT) [facility] POCT Glucose 177(H) 74 - 99 [...] Comment 09/21/2024 1:09 PM EDT [facility]ALTH[facility]ARE [facility] Forestry Laborer ID Ruth Solo 025 1:09 PM EDT HEALTHCARE LAB Device ID [id number] 09/21/2024 1:09 PM EDT [facility] Specimen Type POC Capillary 09/21/2024 1:09 PM EDT [facility] Blood Capillary blood specimen / Unknown 09/21/2024 1:04 PM EDT 09/21/2024 1:09 PM EDT Nathaly Nowak MD LAB POINT OF CARE TE ST DOCKED DEVICE UNSOLICITED RESULTS Final Result Performing Organization Address City/State/[facility] Co de Phone Number [facility] [address] [place] [address] * (ABNORMAL) POCT glucose meter (09/21/2024 12:24 PM EDT) [facility] POCT Glucose 153(H) 74 - 99 [...] for testing. Comment 09/21/2024 12:26 PM EDT [facility]ALTHCARE LAB Forestry Laborer ID Ruth Solo 025 12:26 PM EDT [facility] Device ID [id number] 09/21/2024 12:26 PM EDT HEALTHCARE LAB Specimen Type POC Capillary 09/21/2024 12:26 PM EDT [facility] Blood Capillary blood specimen / Unknown 09/21/2024 12:24 PM EDT 09/21/2024 12:26 PM EDT us Nathaly Nowak MD LAB POINT OF CARE TE ST DOCKED DEVICE UNSOLICITED RESULTS Final Result [facility] [address] [place] [address] * VAS US Arterial Duplex Lower Extremity [...] neck. The following flow velocities were obtained: QUAD STAYER: 93 cm/s SFA: 0 cm/s Popliteal A: 36 cm/s CLINICAL TECH distal: 34 cm/s DPA: 59 cm/s Pseudoaneurysm [...] neck. The following flow velocities were obtained: QUAD STAYER: 93 cm/s SFA: 0 cm/s Popliteal A: 36 cm/s CLINICAL TECH distal: 34 cm/s DPA: 59 cm/s Pseudoaneurysm [...] POCT glucose meter (09/21/2024 7:55 AM EDT) POCT Glucose 130(H) 74 - 99 mg/dL [...] for testing. Comment 09/21/2024 8:01 AM EDT [facility] Forestry Laborer ID Germania, Ruth 025 8:01 AM EDT [facility] Device ID [id number] 09/21/2024 8:01 AM EDT [facility] Specimen Type POC Capillary 09/21/2024 8:01 AM EDT [facility] Blood Capillary blood specimen / Unknown 09/21/2024 7:55 AM EDT 09/21/2024 8:01 AM EDT Nathaly Nowak MD LAB POINT OF CARE TE ST DOCKED DEVICE UNSOLICITED RESULTS Final Result [facility] [address] [place] [address] * (ABNORMAL) POCT glucose meter (09/21/2024 6:06 AM EDT) POCT Glucose 153(H) 74 - 99 mg/dL [...] Comment 09/21/2024 6:09 AM EDT [facility]ALTH[facility]ARE [facility] Forestry Laborer ID Yuna Griffin 09/22/19 6:09 AM EDT HEALTHCARE LAB Device ID [id number] 09/21/2024 6:09 AM EDT [facility] Specimen Type POC Capillary 09/21/2024 6:09 AM EDT [facility] Blood Capillary blood specimen / Unknown 09/21/2024 6:06 AM EDT 09/21/2024 6:09 AM EDT Nathaly Nowak MD LAB POINT OF CARE TE ST DOCKED DEVICE UNSOLICITED RESULTS Final Result Performing Organization Address City/[facility]/ZIP Co de Phone Number HEALTHCARE [facility] [address] [place] [address] * (ABNORMAL) POCT glucose meter (09/21/2024 2:27 AM EDT) [facility] POCT Glucose 194(H) 74 - 99 [...] Comment 09/21/2024 2:34 AM EDT HEALTHCARE LAB Forestry Laborer ID Ana Maria Corea 09/21/2024 2:34 AM EDT HEALTHCARE LAB Device ID [id number] 09/21/2024 2:34 AM EDT HEALTH[facility]ARE LAB Specimen Type POC Capillary 09/21/2024 2:34 AM EDT [facility] Blood Capillary blood specimen / Unknown 09/21/2024 2:27 AM EDT 09/21/2024 2:34 AM EDT Nathaly Nowak MD LAB POINT OF CARE TE ST DOCKED DEVICE UNSOLICITED RESULTS Final Result Performing Organization Address City/[facility]/ZIP Co de Phone Number [facility]ALTHCARE [facility] [address] [place] [address] * ECG Adult (09/21/2024 2:00 AM EDT) Pathologist [facility] EKG DIAGNOSIS CLASS Abnormal MUSE ECG Ventricular Rate 85 BPM MUSE ECG Atrial Rate 85 BPM MUSE ECG AL Interval 146 ms MUSE ECG QRSD Interval 128 ms MUSE ECG QT Interval 390 ms MUSE ECG QTC Interval 464 ms MUSE ECG P [place] 52 degrees MUSE ECG R [place] 263 degrees MUSE ECG T Wave [place] 57 degrees MUSE ECG Diagnosis Atrial-sensed ventricular-pace d rhythm MUSE ECG Diagnosis Biventricular pacemaker detected MUSE ECG Diagnosis MUSE ECG Diagnosis MUSE ECG Diagnosis Confirmed by Sana Ruth ([id number]) on 09/22/2024 11:34:36 PM MUSE ECG 09/21/2024 2:00 AM EDT 09/22/2024 11:34 PM EDT Nathaly Nowak MD ECG ORDERABLES Final Result MUSE ECG * ED HIV 1/2 Antibody/Antigen Screen w/Reflex to HIV 1/2 Differentiation (09/20/2024 10:33 PM EDT) Pathologist [facility] HIV 1 & 2 Antibody/Antigen Screen Non Reactive Non Reactive 09/20/2024 11:39 PM EDT [facility] Comment:Screening for HIV 1 & 2 antibodies, and P24 antigen is NONREACTIVE. No confirmatory testing is required. Blood Venous blood specimen / Unknown Venipuncture / Unknown 09/20/2024 10:33 PM EDT 09/20/2024 10:54 PM EDT us Giorgi Perkins MD LAB BLOOD ORDERABLES Final Result [facility] [address] [place] [address] * Hepatitis C Antibody - ED (09/20/2024 10:33 PM EDT) [facility] Hepatitis C Antibody Negative Negative 09/20/2024 11:39 PM EDT [facility] Blood Venous blood specimen / Unknown Venipuncture / Unknown 09/20/2024 10:33 PM EDT 09/20/2024 10:53 PM EDT us Giorgi Perkins MD LAB BLOOD ORDERABLES Final Result Performing Organization Address City/[facility] Co de Phone Number [facility] [address] [place] [address] * APTT (09/20/2024 10:33 PM EDT) aPTT 28 25 - 35 sec LAB COAGULATION METHOD 09/21/2024 12:19 AM EDT [facility] Blood Venous blood specimen / Unknown Venipuncture / Unknown 09/20/2024 10:33 PM EDT 09/20/2024 10:42 PM EDT us Giorgi Perkins MD LAB BLOOD ORDERABLES Final Result Performing Organization Address [facility] de Phone Number [facility] [address] [place] [address] * PT-INR (09/20/2024 10:33 PM EDT) Prothrombin Time 14.0 12.0 - 14.3 sec LAB COAGULATION METHOD 09/21/2024 12:19 AM EDT [facility] INR 1.1 0.9 - 1.1 LAB COAGULATION METHOD 09/21/2024 12:19 AM EDT [facility] Blood Venous blood specimen / Unknown Venipuncture / Unknown 09/20/2024 10:33 PM EDT 09/20/2024 10:42 PM EDT Narrative [facility] - 09/21/2024 12:19 AM EDT OPTIMAL INR RANGES FOR PATIENT ON ORAL ANTICOAGULANT THERAPY Prevention of venous thromboembolism INR 2.0 to 3.0 In patients with heart disease: Atrial fibrillation INR 2.0 to 3.0 Valvular heart disease INR 2.0 to 3.0 Tissue heart valves INR 2.0 to 3.0 Mechanical prosthetic valves INR 2.5 to 3.5 Prevention of recurrent OK INR 2.5 to 3.5 us Giorgi Perkins MD LAB BLOOD ORDERABLES Final Result [facility] [address] [place] [address] * (ABNORMAL) CBC w/diff (09/20/2024 10:33 PM EDT) WBC Count 13.38(H) 3.70 - 10.30 10*3/uL LAB HEMATOLOGY METHOD 09/20/2024 11:00 PM EDT [facility] RBC Count 2.91(L) 4.60 - 6.10 10*6/uL LAB HEMATOLOGY METHOD 09/20/2024 11:00 PM EDT [facility] HGB 9.0(L) 13.7 - 17.5 g/dL LAB HEMATOLOGY METHOD 09/20/2024 11:00 PM EDT [facility] HCT 27.2(L) 40.0 - 51.0 % LAB HEMATOLOGY METHOD 09/20/2024 11:00 PM EDT [facility] Platelet Count 407(H) 155 - 369 10*3/uL LAB HEMATOLOGY METHOD 09/20/2024 11:00 PM EDT [facility] MCV 94 79 - 98 fL LAB HEMATOLOGY METHOD 09/20/2024 11:00 PM EDT [facility] MCH 30.9 26.0 - 32.0 pg LAB HEMATOLOGY METHOD 09/20/2024 11:00 PM EDT [facility] MCHC 33.1 30.7 - 35.5 g/dL LAB HEMATOLOGY METHOD 09/20/2024 11:00 PM EDT [facility] RDW 13.6 11.5 - 14.5 % LAB HEMATOLOGY METHOD 09/20/2024 11:00 PM EDT [facility] MPV 9.0 8.8 - 12.5 fL LAB HEMATOLOGY METHOD 09/20/2024 11:00 PM EDT [facility] nRBC 0.0 <=0.0 per 100 WBCs LAB HEMATOLOGY METHOD 09/20/2024 11:00 PM EDT [facility] Differential Type Automated LAB HEMATOLOGY METHOD 09/20/2024 11:00 PM EDT [facility] Neutrophils % 77 % LAB HEMATOLOGY METHOD 09/20/2024 11:00 PM EDT [facility] Lymphocytes % 13 % LAB HEMATOLOGY METHOD 09/20/2024 11:00 PM EDT [facility] Monocytes % 8 % LAB HEMATOLOGY METHOD 09/20/2024 11:00 PM EDT [facility] Eosinophils % 1 % LAB HEMATOLOGY METHOD 09/20/2024 11:00 PM EDT [facility] Basophils % 0 % LAB HEMATOLOGY METHOD 09/20/2024 11:00 PM EDT [facility] Immature Granulocytes % 1 % LAB HEMATOLOGY METHOD 09/20/2024 11:00 PM EDT [facility] Neutrophils Absolute 10.28(H) 1.60 - 6.10 10*3/uL LAB HEMATOLOGY METHOD 09/20/2024 11:00 PM EDT [facility] Lymphocytes Absolute 1.67 1.20 - 3.90 10*3/uL LAB HEMATOLOGY METHOD 09/20/2024 11:00 PM EDT [facility] Monocytes Absolute 1.12(H) 0.30 - 0.90 10*3/uL LAB HEMATOLOGY METHOD 09/20/2024 11:00 PM EDT [facility] Eosinophils Absolute 0.14 0.00 - 0.50 10*3/uL LAB HEMATOLOGY METHOD 09/20/2024 11:00 PM EDT [facility] Basophils Absolute 0.05 0.00 - 0.10 10*3/uL LAB HEMATOLOGY METHOD 09/20/2024 11:00 PM EDT [facility] Immature Granulocytes Absolute 0.12(H) 0.00 - 0.06 10*3/uL LAB HEMATOLOGY METHOD 09/20/2024 11:00 PM EDT [facility] Blood Venous blood specimen / Unknown Venipuncture / Unknown 09/20/2024 10:33 PM EDT 09/20/2024 10:42 PM EDT Narrative [facility] - 09/20/2024 11:00 PM EDT Therapeutic decision making should be based on absolute values, rather than percentages. us Giorgi Perkins MD LAB BLOOD ORDERABLES Final Result [facility] [address] [place] [address] * (ABNORMAL) CMP (09/20/2024 10:33 PM EDT) Glucose, Plasma 170(H) 74 - 99 mg/dL 09/20/2024 11:03 PM EDT [facility] BUN, Plasma 27(H) 8 - 23 mg/dL 09/20/2024 11:03 PM EDT [facility] Creatinine, Plasma 0.93 0.70 - 1.20 mg/dL 09/20/2024 11:03 PM EDT [facility] BUN/Creatinine Ratio 29 09/20/2024 11:03 PM EDT [facility] Sodium, Plasma 134(L) 136 - 145 mmol/L 09/20/2024 11:03 PM EDT [facility] Potassium, Plasma 5.0(H) 3.6 - 4.9 mmol/L 09/20/2024 11:03 PM EDT [facility] Chloride, Plasma 101 97 - 107 mmol/L 09/20/2024 11:03 PM EDT [facility] CO2, Plasma 22 22 - 29 mmol/L 09/20/2024 11:03 PM EDT [facility] Anion Gap 11 6 - 16 mmol/L 09/20/2024 11:03 PM EDT [facility] Total Calcium, Plasma 9.1 8.9 - 10.2 mg/dL 09/20/2024 11:03 PM EDT [facility] Total Protein 6.6 6.3 - 7.9 g/dL 09/20/2024 11:03 PM EDT [facility] Albumin, Plasma 3.9 3.5 - 5.2 g/dL 09/20/2024 11:03 PM EDT [facility] AST, Plasma 11 10 - 50 U/L 09/20/2024 11:03 PM EDT [facility] ALT, Plasma 16 10 - 50 U/L 09/20/2024 11:03 PM EDT [facility] Alkaline Phosphatase, Plasma 132(H) 40 - 115 U/L 09/20/2024 11:03 PM EDT [facility] Total Bilirubin, Plasma 0.6 0.2 - 1.1 mg/dL 09/20/2024 11:03 PM EDT [facility] eGFRcr 91.1 mL/min/1.7 3m*2 09/20/2024 11:03 PM EDT [facility] Comment:Reported eGFRcr in m L/min/1.73m2 is based the CKD-EPI 2020 equation that does not use a race coefficient. 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
--- OUTSIDE RECORDS SUMMARY | 2024-10-11 10:15 | XMS_ITS | Encounter Summary ---
Author Organization [facility] Address [address] [place] [address] Care Team Providers Care Processing Archivist Name Role Phone Asad Victor MD Primary Care Provider + [phone] Encounter Details Date Type Department Care Team (Latest Contact Info) Description 10/11/2024 10:15 AM EDT Pre-Admission Testing [facility] Pre-op Clinic [address]st [place] [phone] Preop testing (Primary Dx) Anesthesia Record Procedure [...] Hand; Site Prep: Chlorhexidine ; Local Anesth: [place]; Technique: Anatomical landmarks; Inserted by: CHRISTIAN Acuna; [...] G; Orientation: Right; Location: Axillary; Inserted by: ADULT BASIC EDUCATION MANAGER; Securement: Sutured; Patient Tolerance: Tolerated well; [...] drink first t dino in the morning (EYE-VENDER) to steady your nerves or to get [...] T2DM, HLD, HTN, RLS who presented to [facility] with a large left common [...] note 09/25/24 (media) + CAD s/p multiple [place]'s and 3V CABG 02/2019, 2 stents prior to CABG Atrial Fibrillation with RVR s/p CABG + carotid artery disease s/p R CEA 2016 + 3rd degree AV block HOT DIP PLATER-P placed 08/2023 for Wenkeback with 11 sec pause + HLD + HTN - controlled + PAD 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 S/P intravascular lithotripsy of left common and external iliac artery with 2 continuous balloon mounted bare metal stents 09/12/24 on Xarelto and ASA + WILHELM occ, low energy for > year - had work-up recently in [place] (will get records) + peripheral edema LLE [...] ENDARTERECTOMY N/A 2017 Endarterectomy Carotid Artery from [facility] CORONARY ANGIOPLASTY Left Coronary Angiography With Concomitant Left Heart Catheterization from [facility] CORONARY ARTERY BYPASS GRAFT N/A 2018 3V ELBOW SURGERY Right OTHER SURGICAL HISTORY N/A Reported Prior Surgical / Procedural History from [facility] [5] No Known Allergies [6] Current Outpatient [...] card, photo ID, along with power of defense attorney, guardianship or advanced directives if applicable [...] Description 11/26/2024 2:00 PM EDT Hospital Encounter [facility] Vascular Lab [address] [place] [address] 11/26/2024 2:30 PM EDT Hospital Encounter [facility] [address] [place] [address] 11/26/2024 3:20 PM EDT Office Visit [facility] [address] [place] [address] Elisabet Schuster PA [address] [place] [address] 11/29/2024 2:30 PM EDT Office Visit [facility] [address] [place] [address] Oscar Appiah MD [address] [facility] [address] [place] [address] documented as of this encounter [...] Modality Other Narrative 10/17/2024 9:50 AM EDT [facility]: Pre-operative CIED Report Assessment and Sara-Procedural Reommendations: Name: Mono Bobby Date: 10/17/2024 : 1960 Age: 64 y.o. Patient has a Design Manager: Berger HOT DIP PLATER-PM Remaining battery longevity adequate. Lead integrity test [...] recommendations. Supporting reports can be found in [employer] file. us Emelina DOSHI CV IMPLANTABLE CARDIAC [...] documented as of this encounter Care Teams Processing Archivist Relationship Specialty Start Date End Date Asad Victor MD [address] [place] [address] PCP - General 10/07/22 documented as of this encounter
--- OUTSIDE RECORDS SUMMARY | 2024-10-16 14:45 | XMS_ITS | Encounter Summary ---
Author Organization Healthcare Address [address] [place] [address] Care Team Providers Care Rn Ccu Name Role Phone Asad Victor MD Primary Care Provider + [phone] Encounter Details Date Type Department Care Team (Latest Contact Info) Description 10/16/2024 2:45 PM EDT - 10/16/2024 11:59 PM EDT Hospital Encounter Cardiac Imaging [address] [place] [address] Discharge Disposition: Home or Self Care Social [...] drink first t dino in the morning (EYE-BROWNFIELD REDEVELOPMENT SPECIALIST) to steady your nerves or to get [...] Description 11/26/2024 2:00 PM EDT Hospital Encounter [facility] [address] [place] [address] 11/26/2024 2:30 PM EDT Hospital Encounter [facility] [address] [place] [address] 11/26/2024 3:20 PM EDT Office Visit [facility] [address] [place] [address] Elisabet Schuster, GLENDA [address] [facility] [address] [place] [address] 11/29/2024 2:30 PM EDT Office Visit [place] [address] [place] [address] Oscar Appiah MD [address] [facility] [address] [place] [address] documented as of this encounter Goals Goal [...] Modality Other Narrative 10/17/2024 9:50 AM EDT [facility]: Pre-operative CIED Report Assessment and Sara-Procedural Reommendations: Name: Mono Bobby Date: 10/17/2024 : 1960 Age: 64 y.o. Patient has a Gastrointestinal Technician: Berger DRAWER IN PLAIN LOOM-PM Remaining battery longevity adequate. Lead integrity test [...] recommendations. Supporting reports can be found in [employer] media file. 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
--- OUTSIDE RECORDS SUMMARY | 2024-10-17 06:21 | XMS_ITS | Encounter Summary ---
Author Organization [facility] Address [address] [id number] Care Team Providers Care Life Care Planner Name Role Phone Asad Victor MD Primary Care Provider [phone] Reason for Referral * Imaging (Routine) - Authorized Specialty Diagnoses / Procedures Referred By Susan t Referred To Contact Cardiology Diagnoses Critical limb ischemia of left lower extremity Pseudoaneurysm of left femoral artery (CMS/HCC) Procedures VAS US Arterial Duplex Lower Extremity Unilateral Left Terrell Gautam MD [address] [address] Phone: tel: fax: Referral ID Status Reason Start Date Expiration Date Visits Requested Visits Authorized [id number] Authorized Perform Procedure 10/19/2024 04/20/2026 1 1 * Imaging (Routine) - Authorized Specialty Diagnoses / Procedures Referred By Contac t Referred To Contact Cardiology Diagnoses Critical limb ischemia of left lower extremity Pseudoaneurysm of left femoral artery (CMS/HCC) Procedures VAS Ankle Brachial Index - Segmental Terrell Gautam MD [id number] [place] [address] Phone: tel: fax: Referral ID Status Reason Start Date Expiration Date Visits Requested Visits Authorized [id number] Authorized Perform Procedure 10/19/2024 04/20/2026 1 1 * Consultation (Routine) - Authorized Specialty Diagnoses / Procedures Referred By Contact Referred To Contact Vascular Surgery / [facility] Diagnoses Critical limb ischemia of left lower extremity Pseudoaneurysm of left femoral artery (CMS/HCC) Terrell Gautam MD [address] [place] [address] Phone: tel:[phone] fax:[phone] [facility] [address] [place] [address] 5th Floor [address] [place] [address] Phone: tel: fax: Referral ID Status Reason Start Date Expiration Date Visits Requested Visits Authorized [id number] Authorized Specialty Services Required 10/19/2024 04/20/2026 [address] Gautam, with SIL, arterial duplex Reason for Visit * Auth/Cert (Routine) Specialty Diagnoses / Procedures Referred By Susan t Referred To Contact Diagnoses Critical limb ischemia of left lower extremity Critical limb ischemia of left lower extremity [I70.222] Procedures SD VEIN BYPASS GRAFT,FEM-POP CREATION, BYPASS, ARTERIAL, FEMORAL TO POPLITEAL Terrell Gautam MD [address] [place] [address] Phone: tel: fax: [facility] A OPERATING ROOM [address] [place] [address] Phone: tel: Referral ID Status Reason Start Date Expiration Date Visits Re quested Visits Authorized [id number] 1 1 Encounter Details Date Type Department Care Team (Latest Contact Info) Description 10/17/2024 6:21 AM EDT - 10/19/2024 12:39 PM EDT Hospital Encounter [facility] H Inpatient [address] [place] [address] Terrell Gautam MD [address] [place] [phone] Pseudoaneurysm of left femoral artery (CMS/HCC) [...] any time in the past 12 m [facility], were you homeless or living in a correction (including now)? No 10/18/2024 CAGE ASSESSMENT Answer [...] drink first t dino in the morning (EYE-EMPLOYEE RELATIONS REPRESENTATIVE) to steady your nerves or to get rid of a hangover? 0 10/18/2021 CAGE Questionnaire Score 0 022 Utilities Answer Date Recorded In the past 12 months has th [employer], gas, oil, or water Leev[employer] threatened to shut off services in your [...] Risk Indicated 10/18/2024 8:30 PM EDT Kassie Moa RN * Question Answer Date of Assessment [...] provided Taken 10/17/20242107 by Jourdan Grimes II shaper machine hand Review/Management: medications reviewed Problem: Skin Injury Risk [...] Ongoing, Progressing Intervention: Promote Activity and Functional [place] Flowsheets (Taken 10/19/2024 1048) Self-Care Promotion: BADL personal objects within reach meal set-up provided * Yuni Ramires - Keyla Chow - 10/19/2024 11:45 AM EDT Images from the original note were not included. [id number] After Peripheral Artery Bypass Surgery: In the [...] home. Last Reviewed Date: 2023 00:00:00 ?? [id number] [employer]. All rights reserved. This information is not intended as a substitute for professional medical care. Always follow your healthcare professional's instructions. * Progress Notes - Emelina Friend - 10/19/2024 11:44 AM EDT Case Management Adult Progress Note Bev Bobby 64 y.o. male CSN: [id number] Admission: 10/17/2024 6:21 AM Primary Problem: Critical [...] if any other needs arise. Emelina Friend NETWORK OPERATIONS ANALYST, OSTOMY RN Social Work Case Management * Yuni OviJOSE MANUEL Chow Keyla - 10/19/2024 11:44 AM EDT Images from the original note were not included. [id number] Peripheral Artery Disease (PAD) Peripheral artery disease [...] cause. Last Reviewed Date: 2024 00:00:00 ?? 6533-2189 [employer]. All rights reserved. This information is not intended as a substitute for professional medical care. Always follow your healthcare professional's instructions. * Yuni DiorNAVYA - Keyla Chow - 10/19/2024 11:44 AM EDT Images from the original note were not included. [id number] Leg Artery Emergencies: Critical Limb Ischemia (CLI) [...] appointments. Last Reviewed Date: 2023 00:00:00 ?? 3553-7749 [employer]. All rights reserved. This information is not intended as a substitute for professional medical care. Always follow your healthcare professional's instructions. * Discharge Summary - Dandy Baltazar MD - 10/19/2024 11:31 AM EDT Hospitalization Admit Date/Time: 10/17/2024 6:21 AM Admitting Attending: Terrell Gautam Discharge Date: 10/19/24 Discharge Attending Physician: Nirmal Cueto MD PCP name and Address: Asad Victor MD (Inactive) [address] [place] [address] / [facility] [address] Referring provider name and address: Timothy Marques PA [address] [place] [address] Chief Concern, Brief History of Present Illness, and Hospital Course Bev Bobby is an 64 y.o. 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 He [...] Your Medications These medications were sent to [facility] - [place], [place] - [address], [facility] [address] acetaminophen 500 MG tablet clopidogrel 75 MG [...] of water. 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 He [...] provided Taken 10/17/20242107 by Jourdan Grimes II, shaper machine hand Review/Management: medications reviewed Problem: Skin Injury Risk [...] Ongoing, Progressing Intervention: Promote Activity and Functional [place] Flowsheets (Taken 10/19/2024 1048) Self-Care Promotion: BADL [...] evaluation. PARTICIPANTS IN CARE Visitors Present No Bombsight Specialist (if applicable) PRESENTATION Oxygen Oxygen Therapy: None [...] Level of Mobility Ambulatory- household only Mobility [place] Independent gait with device (rollator) History of [...] numbness in rodney) BED MOBILITY Level of [place] Physical/Non- physical Assist Adaptive Equipment Utilized Rolling/ Turning Scooting/ Bridging Modified independence (anteriorly to EOB) Bed rails Supine to Sit Modified [place] (to the right) (HOB flat) Bed rails Sit to Supine Interventions HOB flat to simulate home environment TRANSFERS Level of [place] Physical/Non- physical Assist Adaptive Equipment Utilized Sit [...] stable surfaces during transitions. AMBULATION Level of [place] Distance Adaptive Equipment Utilized Ambulation Standby assist, [...] Posture: Forward head, Rounded shoulders Level of [place] Balance Support Interventions Static Sit Independent Right [...] 3-5 steps with a railing?: A little [facility] 6-Clicks Mobility Assessment Total : 22 ASSESSMENT [...] evaluation/session. Participants in Care Family/Caregiver Present: No Bombsight Specialist: Not Applicable Presentation Oxygen Therapy: None (Room [...] Level of Mobility: Ambulatory- household only Mobility [place]: Independent gait with device (rollator) History of [...] Mobility Bed Mobility Exam: Scooting/Bridging Level of [place]: Modified independence (anteriorly to EOB) Assistive Device: Bed rails Bed Mobility Exam: Supine to Sit Level of [place]: Modified [place] (to the right) Physical/Nonphysical Assist: (HOB flat) Assistive Device: Bed rails Transfers Transfer Exam: Sit to stand Level of [place]: Stand-by assist Physical/Nonphysical Assist: Supervision, Verbal Cues, Minimal cues Assistive Device: Walker, rolling Transfer Exam: Stand to Sit Level of [place]: Stand-by assist Physical/Nonphysical Assist: Supervision, Verbal Cues, [...] regarding toileting at this time. Standardized Assessments [facility] 6-Click Daily Activities Help from Other: Don/Doff Regular Lower Body Clothings: None Help From Other: Bathing: Little Help From Other: Toileting: None Help From Other: Don/Doff Upper Body Clothings: None Help From Other: Grooming: None Help From Other: Eating Meals: None [facility] 6 Click - Daily Activities Score: 23/24 [facility] Scoring Interpretation: Scores greater than 20.5 suggest [...] Note Bev Bobby 64 y.o. male CSN: [id number] Admission: 10/17/2024 6:21 AM Primary Problem: Critical limb ischemia of left lower extremity Surface Lay Out Technician reviewed chart and spoke with patient to complete this Initial Case Management Assessment. PCP: Asad Victor MD (Inactive) - Dr. Palomo Preferred pharmacy is [facility] Emergency Contact: Extended Emergency Contact Information Primary Emergency Contact: Patti Hill Relation: Sister Bombsight Specialist needed? No Insurance: Primary Visit Coverage Payer Plan Sponsor Code Group Number Group Name [facility] MED[facility] MEDICARE REPLACEMENT [id number] Primary Visit Coverage Subscriber Subscriber ID Subscriber Name Subscriber N Subscriber Address [id number] BEV BOBBY [id number] [place] [address] Secondary Visit Coverage Payer Plan Sponsor Code Group Number Group Name [facility] Secondary Visit Coverage Subscriber Subscriber ID Subscriber Name Subscriber N Subscriber Address [id number] BEV BOBBY [id number] [place] [address] Patient information: Primary Caregiver: Self Daily Living Activities: Functional Status: Independent Living Arrangements: Alone Type of Residence: Private residence, Single Level [address] [place] [address] Current DME: Equipment Currently Used at Home: walker, rollator Income Information: Income Source: Retired Income/Expense Information: Income meets expenses Current Resources Utilized: Food [place] Housing Circumstances-Z Codes: Housing Circumstances (select all [...] Dialysis Services: None. Living Will/Advance Directive/Power of Brickmason Helper /Guardian: Denied. Additional Comments: Patient is not medically ready for discharge. SW will continue to follow. Mariia Macedo OSTOMY RN * Care Plan - Emilia Alonso RN [...] from the original note were not included. [facility] Department of Surgery Division of Vascular [...] 10/18/2024 10:16 AM EDT Associated attestation - iNrmal Cueto MD - 10/18/2024 10:16 AM EDT [...] Agree with above assessment and evaluation from resident/PICKER PACKER. * Op Note - Terrell Gautam MD - 10/17/2024 8:52 AM EDT Operative Note Date: 10/17/24 Location: [facility] Name: Bev Bobby, : 1960, Diagnoses: Pre-op Diagnosis Critical limb ischemia of left lower extremity Common femoral artery pseudoaneurysm Post-op Diagnosis Critical limb ischemia of left lower extremity Common femoral artery pseudoaneurysm Procedure(s): Left common/superficial/profunda femoral thromboendarterectomy with bovine patch repair Left external iliac artery/CARD WRITER HAND stent Attending Surgeon(s): * Terrell Gautam - Primary Foam Rubber Curer(s): * Luna Beckett MD - Resident - [...] Necessity Reasons Recent surgery contiguous with urinary tract/FUR REPAIRER/colorectal 10/17/24 190 Output (mL) 50 mL 10/18/24 08 Implants Type Name Action Serial No. VASCUGUARD 8 X 8 - [id number] Implanted STENT ENDOPROSTHESIS VIABAHN 9FR [id number] - [id number] Implanted [id number] Specimen: Specimens ID Source Frozen? 1 Other [...] and distal control. We then proceeded with oeedt-xeq-eies exposure of the popliteal artery. A medial [...] balloon dilated thestent with a 9 mm [place]. We closed the arteriotomy with a single [...] 10/17/2024 8:52 AM EDT Date: 10/17/24 Location: [facility] Name: Bev Perez Kanu, : 1960, Diagnoses: Pre-op Diagnosis Critical limb ischemia of left lower extremity Common femoral artery pseudoaneurysm Post-op Diagnosis Critical limb ischemia of left lower extremity Common femoral artery pseudoaneurysm Procedure(s): Left common/superficial/profunda femoral thromboendarterectomy with bovine patch repair Left external iliac artery/CARD WRITER HAND stent Attending Surgeon(s): * Terrell Gautam - Primary Foam Rubber Curer(s): * Luna Beckett MD - Resident - Assisting * Dandy Baltazar MD - Fellow Anesthesia: General ASA: III Blood Administration: Blood Product Administration History None Estimated Blood Loss: 300 mL Drains: Urethral Catheter Temperature probe 16 Fr. (Active) Implants Type Name Action Serial No. VASCUGUARD 8 X 8 - [id number] Implanted STENT ENDOPROSTHESIS VIABAHN 9FR [id number] - [id number] Implanted [id number] Specimen: Specimens ID Source Frozen? 1 Other [...] issues. 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 He previouslyunderwent thrombin injection. He reports pain in his calves. He presents today for scheduled left lower extremity femoral to viuoj-auc-[id number] popliteal bypass. Planned likely use PTFE. He [...] 16. Results Review {Vanishing Link Review Results :[id number] I have reviewed the latest lab and imaging results. Assessment & Plan Critical limb ischemia of left lower extremity Proceed with scheduled surgery left lower extremity femoral to [id number]-ged-uypo popliteal artery bypass graft. Extensive discussion had [...] Description 11/26/2024 2:00 PM EDT Hospital Encounter [facility] [address] [place] [address] 11/26/2024 2:30 PM EDT Hospital Encounter [facility] [address] [place] [address] 11/26/2024 3:20 PM EDT Office Visit [facility] [address] Floor [address] [place] [address] Elisabet Schuster, GLENDA [address] [facility] [address] [place] [address] 11/29/2024 2:30 PM EDT Office Visit [facility] [address] [place] [phone] Oscar Appiah MD [address] [facility] [address] [place] [address] Pending Results Name Type Priority Associated Diagnoses [...] PREPARE RBC STAT 10/17/2024 8:06 AM EDT SD VEIN BYPASS GRAFT,FEM-POP 10/17/2024 7:38 AM EDT [...] Comment 10/19/2024 11:42 AM EDT HEALTHCARE LAB Battery Tester ID KamranJob 10/20/19 11:42 AM EDT HEALTHCARE LAB Device ID [id number] 10/19/2024 11:42 AM EDT [facility] Specimen Type POC Capillary 10/19/2024 11:42 AM EDT [facility] Blood Capillary blood specimen / Unknown 10/19/2024 11:40 AM EDT 10/19/2024 11:42 AM EDT Terrell Gautam MD LAB POINT OF CARE TE ST DOCKED DEVICE UNSOLICITED RESULTS Final Result Performing Organization Address City/State/[facility] Co de Phone Number HEALTHCARE LAB [address] [place] [address] * (ABNORMAL) Protime-INR (10/19/2024 8:25 AM EDT) [...] of recurrent [place] INR 2.5 to 3.5 Nirmal Cueto MD LAB BLOOD [place] [address] * (ABNORMAL) Phosphorus (10/19/2024 8:25 AM EDT) Phosphorus, Plasma 2.2(L) 2.5 - 4.5 mg/dL 10/19/2024 9:12 AM EDT [facility] Blood Venous blood specimen / Unknown Venipuncture / Unknown 10/19/2024 8:25 AM EDT 10/19/2024 8:43 AM EDT Nirmal Cueto MD LAB BLOOD ORDERABLES Final Result Performing Organization Address City/[facility]/ZIP Co de Phone Number [facility] [address] [place] [address] * Magnesium (10/19/2024 8:25 AM EDT) Magnesium, Plasma 2.1 1.9 - 2.4 mg/dL 10/19/2024 9:12 AM EDT [facility] Blood Venous blood specimen / Unknown Venipuncture / Unknown 10/19/2024 8:25 AM EDT 10/19/2024 8:43 AM EDT Nirmal Cueto MD LAB BLOOD ORDERABLES Final Result Performing Organization Address City/[facility]/ZIP Co de Phone Number [facility] [address] [place] [address] * (ABNORMAL) Basic metabolic panel (10/19/2024 8:25 [...] Result [facility] [address] [place] [address] * (ABNORMAL) CBC W/O Differential (10/19/2024 8:25 [...] ORDERABLES Final Result [facility] [address] [place] [address] * (ABNORMAL) POCT glucose meter (10/19/2024 7:35 AM EDT) [facility] POCT Glucose 187(H) 74 - 99 [...] Comment 10/19/2024 7:37 AM EDT HEALTHCARE LAB Battery Tester ID Job Andrew 10/20/19 7:37 AM EDT HEALTHCARE LAB Device ID [id number] 10/19/2024 7:37 AM EDT [facility] Specimen Type POC Capillary 10/19/2024 7:37 AM EDT [facility] Blood Capillary blood specimen / Unknown 10/19/2024 7:35 AM EDT 10/19/2024 7:37 AM EDT us Terrell Gautam MD LAB POINT OF CARE TE ST DOCKED DEVICE UNSOLICITED RESULTS Final Result Performing Organization Address City/State/[facility] Co de Phone Number [facility] [address] [place] [address] * (ABNORMAL) POCT glucose meter (10/18/2024 7:22 PM EDT) [facility] POCT Glucose 178(H) 74 - 99 [...] 10/18/2024 7:24 PM EDT [facility] Battery Tester ID Jovan Mahesh 10/18/2024 7:24 PM EDT [facility] Device ID [id number] 10/18/2024 7:24 PM EDT [facility]ALTH[facility]ARE LAB Specimen Type POC Capillary 10/18/2024 7:24 PM EDT [facility] Blood Capillary blood specimen / Unknown 10/18/2024 7:22 PM EDT 10/18/2024 7:24 PM EDT us Terrell Gautam MD LAB POINT OF CARE TE ST DOCKED DEVICE UNSOLICITED RESULTS Final Result Performing Organization Address City/[facility]/ZIP Co de Phone Number [facility] [address] [place] [address] * (ABNORMAL) POCT glucose meter (10/18/2024 6:07 [...] Comment 10/18/2024 6:09 PM EDT HEALTHCARE LAB Battery Tester ID David Parks 10/18/2024 6:09 PM EDT HEALTHCARE LAB Device ID [id number] 10/18/2024 6:09 PM EDT HEALTH[facility]ARE LAB Specimen Type POC Capillary 10/18/2024 6:09 PM EDT [facility] Blood Capillary blood specimen / Unknown 10/18/2024 6:07 PM EDT 10/18/2024 6:09 PM EDT us Terrell Gautam MD LAB POINT OF CARE TE ST DOCKED DEVICE UNSOLICITED RESULTS Final Result [facility] [address] [place] [address] * (ABNORMAL) POCT glucose meter (10/18/2024 11:56 [...] Comment 10/21/2024 7:42 AM EDT HEALTHCARE LAB Battery Tester ID Venessa Marcano 10/21/2024 7:42 AM EDT [facility] Device ID [id number] 10/21/2024 7:42 AM EDT [facility] Specimen Type POC Capillary 10/21/2024 7:42 AM EDT [facility] Blood Capillary blood specimen / Unknown 10/18/2024 11:56 AM EDT 10/21/2024 7:42 AM EDT us Terrell Gautam MD LAB POINT OF CARE TE ST DOCKED DEVICE UNSOLICITED RESULTS Final Result Performing Organization Address City/State/[facility] Co de Phone Number HEALTHCARE LAB [address] [place] [address] * (ABNORMAL) POCT glucose meter (10/18/2024 9:24 [...] 10/21/2024 7:42 AM EDT [facility] Battery Tester ID Emilia Alonso 7:42 AM EDT [facility] Device ID [id number] 10/21/2024 7:42 AM EDT [facility]ARE LAB Specimen Type POC Venous 10/21/2024 7:42 AM EDT [facility] Blood Venous blood specimen / Unknown 10/18/2024 9:24 AM EDT 10/21/2024 7:42 AM EDT us Terrell Gautam MD LAB POINT OF CARE TE ST DOCKED DEVICE UNSOLICITED RESULTS Final Result [facility] [address] [place] [address] * (ABNORMAL) POCT glucose meter (10/18/2024 7:36 AM EDT) Pathologist [facility] POCT Glucose 215(H) 74 - 99 mg/dL [...] for testing. Comment 10/18/2024 7:38 AM EDT [facility] Battery Tester ID Kizzy Godfrey 025 7:38 AM EDT HEALTHCARE LAB Device ID [id number] 10/18/2024 7:38 AM EDT [facility] Specimen Type POC Capillary 10/18/2024 7:38 AM EDT [facility] Blood Capillary blood specimen / Unknown 10/18/2024 7:36 AM EDT 10/18/2024 7:38 AM EDT us Terrell Gautam MD LAB POINT OF CARE TE ST DOCKED DEVICE UNSOLICITED RESULTS Final Result [facility] [address] [place] [address] * (ABNORMAL) CBC (10/18/2024 2:09 AM EDT) Pathologist [facility] WBC Count 16.71(H) 3.70 - 10.30 10*3/uL [...] ORDERABLES Final Result [facility] [address] [place] [address] * (ABNORMAL) Basic metabolic panel (10/18/2024 2:09 [...] Final Result [facility] [address] [place] [address] * (ABNORMAL) Magnesium (10/18/2024 2:09 AM EDT) Magnesium, Plasma 1.8(L) 1.9 - 2.4 mg/dL 10/18/2024 2:53 AM EDT [facility] Blood Venous blood specimen / Unknown Venipuncture / Unknown 10/18/2024 2:09 AM EDT 10/18/2024 2:25 AM EDT us Nirmal Cueto MD LAB BLOOD ORDERABLES Final Result [facility] [address] [place] [address] * Phosphorus (10/18/2024 2:09 AM EDT) Phosphorus, Plasma 3.7 2.5 - 4.5 mg/dL 10/18/2024 2:53 AM EDT [facility] Blood Venous blood specimen / Unknown Venipuncture / Unknown 10/18/2024 2:09 AM EDT 10/18/2024 2:25 AM EDT Nirmal Cueto MD LAB BLOOD ORDERABLES Final Result Performing Organization Address [facility] Co de Phone Number [facility] [address] [place] [address] * (ABNORMAL) Protime-INR (10/18/2024 2:09 AM EDT) [...] recurrent [place] INR 2.5 to 3.5 us Nirmal Cueto MD LAB BLOOD ORDERABLES Final Result Performing Organization Address City/[facility]/ZIP Co de Phone Number [facility] [address] [place] [address] * (ABNORMAL) POCT glucose meter (10/18/2024 2:08 AM EDT) [facility] POCT Glucose 202(H) 74 - 99 [...] Comment 10/18/2024 2:10 AM EDT HEALTHCARE LAB Battery Tester ID Jourdan Grimes II 10/18/2024 2:10 AM EDT HEALTHCARE LAB Device ID [id number] 10/18/2024 2:10 AM EDT [facility]ALTH[facility]ARE LAB Specimen Type POC Capillary 10/18/2024 2:10 AM EDT [facility] Blood Capillary blood specimen / Unknown 10/18/2024 2:08 AM EDT 10/18/2024 2:10 AM EDT us Terrell Gautam MD LAB POINT OF CARE TE ST DOCKED DEVICE UNSOLICITED RESULTS Final Result Performing Organization Address City/State/[facility] Co de Phone Number [facility]ARE LAB [address] [place] [address] * (ABNORMAL) POCT glucose meter (10/17/2024 10:07 PM EDT) [facility] POCT Glucose 300(H) 74 - 99 [...] Comment 10/17/2024 10:10 PM EDT HEALTH[facility]ARE LAB Battery Tester ID Jourdan Grimes II 10/17/2024 10:10 PM EDT HEALTHCARE LAB Device ID [id number] 10/17/2024 10:10 PM EDT HEALTH[facility]ARE LAB Specimen Type POC Capillary 10/17/2024 10:10 PM EDT [facility] Blood Capillary blood specimen / Unknown 10/17/2024 10:07 PM EDT 10/17/2024 10:10 PM EDT Terrell Gautam MD LAB POINT OF CARE TE ST DOCKED DEVICE UNSOLICITED RESULTS Final Result Performing Organization Address City/[facility] Co de Phone Number [facility]ARE [facility] [address] [place] [address] * (ABNORMAL) POCT glucose meter (10/17/2024 8:07 [...] Comment 10/17/2024 8:10 PM EDT HEALTHCARE LAB Battery Tester ID Jourdan Grimes II 10/17/2024 8:10 PM EDT HEALTHCARE LAB Device ID [id number] 10/17/2024 8:10 PM EDT HEALTHCARE LAB Specimen Type POC Capillary 10/17/2024 8:10 PM EDT [facility] Blood Capillary blood specimen / Unknown 10/17/2024 8:07 PM EDT 10/17/2024 8:10 PM EDT us Terrell Gautam MD LAB POINT OF CARE TE ST DOCKED DEVICE UNSOLICITED RESULTS Final Result Performing Organization Address City/[facility]/ZIP Co de Phone Number [facility] [address] [place] [address] * (ABNORMAL) POCT glucose meter (10/17/2024 4:01 [...] Comment 10/17/2024 4:03 PM EDT HEALTHCARE LAB Battery Tester ID Keisha Waller 10/17/2024 4:03 PM EDT HEALTHCARE LAB Device ID [id number] 10/17/2024 4:03 PM EDT HEALTHCARE LAB Specimen Type POC Capillary 10/17/2024 4:03 PM EDT HEALTHCARE LAB Blood Capillary blood specimen / Unknown 10/17/2024 4:01 PM EDT 10/17/2024 4:03 PM EDT us Terrell Gautam MD LAB POINT OF CARE TE ST DOCKED DEVICE UNSOLICITED RESULTS Final Result Performing Organization Address City/State/[facility] Co de Phone Number HEALTHCARE LAB [address] [place] [address] * (ABNORMAL) POCT glucose meter (10/17/2024 1:25 PM EDT) [facility] POCT Glucose 225(H) 74 - 99 [...] Comment 10/17/2024 1:27 PM EDT HEALTHCARE LAB Battery Tester ID Kizzy Godfrey 025 1:27 PM EDT HEALTHCARE LAB Device ID [id number] 10/17/2024 1:27 PM EDT HEALTHCARE LAB Specimen Type POC Capillary 10/17/2024 1:27 PM EDT HEALTHCARE LAB Blood Capillary blood specimen / Unknown 10/17/2024 1:25 PM EDT 10/17/2024 1:27 PM EDT us Terrell Gautam MD LAB POINT OF CARE TE ST DOCKED DEVICE UNSOLICITED RESULTS Final Result Performing Organization Address City/[facility] Co de Phone Number HEALTHCARE LAB [address] [place] [address] * [place] Less than 1 Hour Intraoperative (10/17/2024 1:18 PM EDT) Narrative IMAGING - 10/17/2024 2:05 PM EDT Images were obtained for surgical purposes. See Terrell Gautam's surgical note in the patient's chart for the findings. Terrell Gautam MD IMG FLUOROSCOPY PROCEDURES Fi nal Result Performing Organization Address [facility] Co de Phone Number IMAGING * POCT ACT (10/17/2024 12:23 PM EDT) ACT+ (HIGH RANGE) 211 68 - 600 Seconds 10/29/2024 7:28 AM EDT HEALTHCARE LAB Battery Tester ID Donna Mcmillan 10/29/2024 7:28 AM EDT HEALTHCARE LAB ACT Device ID [id number] 10/29/2024 7:28 AM EDT [facility] [...] UNSOLICITED RESULTS Final Result Performing Organization Address [facility] Co de Phone Number HEALTHCARE LAB [address] [place], [place] [id number] [place] [address] LAB [address] [place] [address] * (ABNORMAL) Blood gas, arterial (10/17/2024 11:48 [...] Final Re sult [facility] [address] [place] [address] * POCT ACT (10/17/2024 11:41 AM EDT) ACT+ (HIGH RANGE) 175 68 - 600 Seconds 10/29/2024 7:28 AM EDT HEALTHCARE LAB Battery Tester ID Oneyda Alicea 10/29/2024 7:28 AM EDT HEALTHCARE LAB ACT Device ID [id number] 10/29/2024 7:28 AM EDT HEALTHCARE LAB Comment [...] ST DOCKED DEVICE UNSOLICITED RESULTS Final Result [facility] [address] LAB [address] [place] [address] * POCT ACT (10/17/2024 11:11 AM EDT) ACT+ (HIGH RANGE) 252 68 - 600 Seconds 10/29/2024 7:28 AM EDT HEALTHCARE LAB Battery Tester ID Donna Mcmillan 10/29/2024 7:28 AM EDT HEALTHCARE LAB ACT Device ID [id number] 10/29/2024 7:28 AM EDT HEALTHCARE LAB Comment [...] RESULTS Final Result [facility] [address] LAB [address] [place] [address] * (ABNORMAL) Blood gas, arterial (10/17/2024 10:46 [...] Final Re sult [facility] [address] [place] [address] * POCT ACT (10/17/2024 10:37 AM EDT) ACT+ (HIGH RANGE) 206 68 - 600 Seconds 10/29/2024 7:28 AM EDT [facility] Battery Tester ID Donna Mcmillan 10/29/2024 7:28 AM EDT [facility] ACT Device ID [id number] 10/29/2024 7:28 AM EDT [facility] Comment 10/29/2024 7:28 AM EDT [facility] [...] ST DOCKED DEVICE UNSOLICITED RESULTS Final Result [facility] [address] LAB [address] [place] [address] * Surgical Pathology Exam (10/17/2024 10:27 AM EDT) Case Report Surgical Pathology Case: [id number] Authorizing Provider: Terrell Gautam MD Collected: 10/17/2024 [...] cm. The specimen is serially sectioned and sales and merchandising representative sections are submitted in cassette A1. [...] Gwen grimaldo Result [facility] [address] [place] [address] * POCT ACT (10/17/2024 10:03 AM EDT) ACT+ (HIGH RANGE) 244 68 - 600 Seconds 10/29/2024 7:28 AM EDT [facility] Battery Tester ID Donna Mcmillan 10/29/2024 7:28 AM EDT [facility] ACT Device ID [id number] 10/29/2024 7:28 AM EDT [facility] [...] ST DOCKED DEVICE UNSOLICITED RESULTS Final Result [facility] [address] LAB [address] [place] [address] * (ABNORMAL) Blood gas, arterial (10/17/2024 9:45 [...] 10/17/2024 9:52 AM EDT us Jenna Lopez [facility] BLOOD ORDERABLES Final Re sult [facility] [address] [place] [address] * (ABNORMAL) Blood gas, arterial (10/17/2024 8:47 [...] AM EDT us Jenna Lopez [facility] BLOOD ORDERABLES Final Re sult [facility] [address] [place] [address] * POCT ACT (10/17/2024 8:46 AM EDT) ACT+ (HIGH RANGE) 101 68 - 600 Seconds 10/29/2024 7:28 AM EDT HEALTHCARE LAB Battery Tester ID HipolitoAdaDonna Maya 10/29/2024 7:28 AM EDT HEALTHCARE LAB ACT Device ID [id number] 10/29/2024 7:28 AM EDT HEALTHCARE LAB Comment [...] UNSOLICITED RESULTS Final Result Performing Organization Address [facility] de Phone Number [facility] [address] LAB [address] [place] [address] * Type and Screen (10/17/2024 7:19 AM [...] ORDERAB LES Final Result Performing Organization Address [facility] de Phone Number BLOOD BANK [address] [place] [address] * (ABNORMAL) POCT glucose meter (10/17/2024 6:44 AM EDT) [facility] POCT Glucose 178(H) 74 - 99 [...] 10/17/2024 6:49 AM EDT [facility] Battery Tester ID Hunter Burroughs 10/18/19 6:49 AM EDT [facility] Device ID [id number] 10/17/2024 6:49 AM EDT [facility] Specimen Type POC Capillary 10/17/2024 6:49 AM EDT HEALTHCARE LAB Blood Capillary blood specimen / Unknown 10/17/2024 6:44 AM EDT 10/17/2024 6:49 AM EDT Terrell Gautam MD LAB POINT OF CARE TE ST DOCKED DEVICE UNSOLICITED RESULTS Final Result [facility] [address] [place] [address] documented in this encounter Visit Diagnoses Diagnosis [...] documented as of this encounter Care Teams Life Care Planner Relationship Specialty Start Date End Date Asad Victor MD [address] [place] [address] PCP - General 10/07/22 documented as of this encounter
--- OUTSIDE RECORDS SUMMARY | 2024-10-17 07:51 | XMS_ITS | Encounter Summary ---
Author Organization [facility] Address [address] [id number] Care Team Providers Care Color Worker Name Role Phone Asad Victor MD Primary Care Provider + [phone] Reason for Visit * Auth/Cert (Routine) Specialty Diagnoses / Procedures Referred By Contac t Referred To Contact Diagnoses Critical limb ischemia of left lower extremity Critical limb ischemia of left lower extremity [I70.222] Procedures [place] VEIN BYPASS GRAFT,FEM-POP CREATION, BYPASS, ARTERIAL, FEMORAL TO POPLITEAL Terrell Gautam MD [address] [facility] [address] [place] [address] Phone: tel: fax: PAV A OPERATING ROOM [address] [place] [address] Phone: tel: Referral ID Status Reason Start Date Expiration Date Visits Re quested Visits Authorized [id number] 1 1 Encounter Details Date Type Department Care Team (Late st Contact Info) Description 10/17/2024 7:51 AM EDT Anesthesia Event PAV A OPERATING ROOM [address] [place] [address] Maria Fernanda Mccallum MD [address] [place] [address] Anesthesia Record Procedure Summary [...] Hand; Site Prep: Chlorhexidine ; Local Anesth: [place]; Technique: Anatomical landmarks; Inserted by: CHRISTIAN Acuna; [...] any time in the past 12 m [facility], were you homeless or [...] drink first t dino in the morning (EYE-TRACTION POWER ENGINEER) to steady your nerves or to [...] * Anesthesia Postprocedure Evaluation - Jenna Lopez, RESEARCH LABORATORY SPECIALIST - 10/17/2024 1:29 PM EDT Patient: Mono [...] by Swetha Villareal MD Staffing Performed: ISH RESEARCH LABORATORY SPECIALIST: Jenna Lopez CRNA * Anesthesia Procedure Notes - Jenna Lopez CRNA - 10/17/2024 9:00 AM EDT Associated Order(s): Airway Airway Date/Time: 10/17/2024 8:03 AM Reason: elective Airway not difficult General Information and Staff Patient location during procedure: [place] RESEARCH LABORATORY SPECIALIST: Jenna Lopez CRNA Performed: RESEARCH LABORATORY SPECIALIST Patient Condition Indications for airway management: anesthesia [...] CEA 2016 + 3rd degree AV block THEATRICAL AGENT-P placed 08/2023 for Wenkeback with 11 sec pause + HLD + HTN - controlled + PAD 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 CORONARY ANGIOPLASTY Left Coronary Angiography With Concomitant Left Heart Catheterization from [place] ??? CORONARY ARTERY BYPASS GRAFT N/A 2018 [...] Description 11/26/2024 2:00 PM EDT Hospital Encounter [facility] [address] [place] [address] 11/26/2024 2:30 PM EDT Hospital Encounter [facility] [address] [place] [address] 11/26/2024 3:20 PM EDT Office Visit [facility] [address] [place] [address] Elisabet Schuster, GLENDA [address] [facility] [address] [place] [address] 11/29/2024 2:30 PM EDT Office Visit [facility] [address] [place] [address] Oscar Appiah MD [facility] [address] [place] [address] documented as of this encounter Goals Goal [...] ANESTHESIA PLACEHOLDER Routine 10/17/2024 8:03 AM EDT [place] AN ELECTIVE ENDOTRACHEAL AIRWAY Routine 10/17/2024 8:03 [...] Performed by Swetha Villareal MD Staffing Performed: RESEARCH LABORATORY SPECIALIST RESEARCH LABORATORY SPECIALIST: Jenna Lopez CRNA Maria Fernanda Mccallum MD ANESTHESIA ORDERABLES Edite d Result - Final * [place] AN ELECTIVE ENDOTRACHEAL AIRWAY, PB ANESTHESIA PLACEHOLDER (10/17/2024 8:03 AM EDT) Narrative Jenna Lopez CRNA - 10/17/2024 8:03 AM EDT Jenna Lopez CRNA 10/17/2024 9:00 AM Airway Date/Time: 10/17/2024 8:03 AM Reason: elective Airway not difficult General Information and Staff Patient location during procedure: [place] RESEARCH LABORATORY SPECIALIST: Jenna Lopez CRNA Performed: ISH Patient Condition [...] Mccallum MD ANESTHESIA ORDERABLES Final Result * [facility] AN POCUS CARDIAC PROCDOC (10/17/2024 7:18 [...] Trace AR. The images were Saved in [employer]. The study was technically adequate. [...] documented as of this encounter Care Teams Color Worker Relationship Specialty Start Date End Date Asad Victor MD [address] [place] [address] PCP - General 10/07/22 documented as of this encounter
--- OUTSIDE RECORDS SUMMARY | 2024-10-17 08:00 | XMS_ITS | Encounter Summary ---
Author Organization [facility] Address [address] [place] [address] Care Team Providers Care Tandem Operator Name Role Phone Asad Victor MD Primary Care Provider + [phone] Reason for Visit * Auth/Cert (Routine) Specialty Diagnoses / Procedures Referred By Contac t Referred To Contact Diagnoses Critical limb ischemia of left lower extremity Critical limb ischemia of left lower extremity [I70.222] Procedures CO VEIN BYPASS GRAFT,FEM-POP CREATION, BYPASS, ARTERIAL, FEMORAL TO POPLITEAL Terrell Gautam MD [address] [address] Phone: tel: fax: [facility] [address] [place] [address] Phone: tel: Referral ID Status Reason Start Date Expiration Date Visits Re quested Visits Authorized [id number] 1 1 Encounter Details Date Type Department Care Team (Late st Contact Info) Description 10/17/2024 8:00 AM EDT - 10/17/2024 2:50 PM EDT Surgery [facility] [address] [place] [address] Terrell Gautam MD [address] [address] CREATION, BYPASS, ARTERIAL, FEMORAL TO POPLITEAL [72161 (CPT )] Surgery Details Date/Time Status Location [...] were you homeless or living in a long-term (including now)? No 10/18/2024 CAGE ASSESSMENT Answer [...] drink first t dino in the morning (EYE-REFERRAL SPECIALIST) to steady your nerves or to get rid of a hangover? 0 10/18/2021 CAGE Questionnaire Score 0 022 Utilities Answer Date Recorded In the past 12 months has th e [employer], gas, oil, or water [employer] threatened to shut off services in your [...] Hospital-Acquired Illness or Injury 10/19/2024 1145 by Kyela Chow Outcome: Met 10/19/2024 1048 by Keyla [...] provided Taken 10/17/20242107 by Jourdan Grimes II, heel sander rubber Review/Management: medications reviewed Problem: Skin Injury Risk [...] Ongoing, Progressing Intervention: Promote Activity and Functional Rufe Flowsheets (Taken 10/19/2024 1048) Self-Care Promotion: BADL personal objects within reach meal set-up provided * Yuni Ramires - Keyla Chow - 10/19/2024 11:45 AM EDT Images from the original note were not included. 23917 After Peripheral Artery Bypass Surgery: In the [...] home. Last Reviewed Date: 2023 00:00:00 ?? [id number] [employer]. All rights reserved. This information is not intended as a substitute for professional medical care. Always follow your healthcare professional's instructions. * Progress Notes - Emelina Friend - 10/19/2024 11:44 AM EDT Case Management Adult Progress Note Bev Bobby 64 y.o. male CSN: [id number] Admission: 10/17/2024 6:21 AM Primary Problem: Critical [...] if any other needs arise. Emelina Friend PIECER UP, RN CASE MANAGEMENT Social Work Case Management * Yuni Ramires - Keyla Chow - 10/19/2024 11:44 AM EDT Images from the original note were not included. [id number] Peripheral Artery Disease (PAD) Peripheral artery disease [...] cause. Last Reviewed Date: 2024 00:00:00 ?? [id number] [employer]. All rights reserved. This information is not intended as a substitute for professional medical care. Always follow your healthcare professional's instructions. * Yuni Ramires - Keyla Chow - 10/19/2024 11:44 AM EDT Images from the original note were not included. [id number] Leg Artery Emergencies: Critical Limb Ischemia (CLI) [...] appointments. Last Reviewed Date: 2023 00:00:00 ?? [id number] [employer]. All rights reserved. This information is not intended as a substitute for professional medical care. Always follow your healthcare professional's instructions. * Discharge Summary - Dandy Baltazar MD - 10/19/2024 11:31 AM EDT Hospitalization Admit Date/Time: 10/17/2024 6:21 AM Admitting Attending: Terrell Gautam Discharge Date: 10/19/24 Discharge Attending Physician: Nirmal Cueto MD PCP name and Address: Asad Victor MD (Inactive) [address] [facility] [address] Referring provider name and address: Timothy Marques PA [address] [place] [address] Chief Concern, Brief History of Present Illness, and Hospital Course Bev Bobby is an 64 y.o. 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 He [...] were sent to [facility] [place], [place] - [address] [facility] [facility] [address] acetaminophen 500 MG tablet clopidogrel 75 MG [...] of water. 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 He [...] provided Taken 10/17/20242107 by Jourdan Grimes II heel sander rubber Review/Management: medications reviewed Problem: Skin Injury Risk [...] Ongoing, Progressing Intervention: Promote Activity and Functional Rufe Flowsheets (Taken 10/19/2024 1048) Self-Care Promotion: BADL [...] evaluation. PARTICIPANTS IN CARE Visitors Present No Professor Of Pathology (if applicable) PRESENTATION Oxygen Oxygen Therapy: None [...] Level of Mobility Ambulatory- household only Mobility Rufe Independent gait with device (rollator) History of [...] numbness in rodney) BED MOBILITY Level of Rufe Physical/Non- physical Assist Adaptive Equipment Utilized Rolling/ Turning Scooting/ Bridging Modified independence (anteriorly to EOB) Bed rails Supine to Sit Modified Rufe (to the right) (HOB flat) Bed rails Sit to Supine Interventions HOB flat to simulate home environment TRANSFERS Level of Rufe Physical/Non- physical Assist Adaptive Equipment Utilized Sit [...] stable surfaces during transitions. AMBULATION Level of Rufe Distance Adaptive Equipment Utilized Ambulation Standby assist, [...] Posture: Forward head, Rounded shoulders Level of Rufe Balance Support Interventions Static Sit Independent Right [...] 6-Clicks Mobility Assessment [facility] 6-Clicks Mobility Assessment Difficulty patient has turning [...] railing?: A little [facility] 6-Clicks Mobility Assessment Total : 22 ASSESSMENT [...] evaluation/session. Participants in Care Family/Caregiver Present: No Professor Of Pathology: Not Applicable Presentation Oxygen Therapy: None (Room [...] Level of Mobility: Ambulatory- household only Mobility Rufe: Independent gait with device (rollator) History of [...] Mobility Bed Mobility Exam: Scooting/Bridging Level of Rufe: Modified independence (anteriorly to EOB) Assistive Device: Bed rails Bed Mobility Exam: Supine to Sit Level of Rufe: Modified Rufe (to the right) Physical/Nonphysical Assist: (HOB flat) Assistive Device: Bed rails Transfers Transfer Exam: Sit to stand Level of Rufe: Stand-by assist Physical/Nonphysical Assist: Supervision, Verbal Cues, Minimal cues Assistive Device: Walker, rolling Transfer Exam: Stand to Sit Level of Rufe: Stand-by assist Physical/Nonphysical Assist: Supervision, Verbal Cues, [...] regarding toileting at this time. Standardized Assessments [facility] 6-Click Daily Activities Help from Other: Don/Doff Regular Lower Body Clothings: None Help From Other: Bathing: Little Help From Other: Toileting: None Help From Other: Don/Doff Upper Body Clothings: None Help From Other: Grooming: None Help From Other: Eating Meals: None [facility] 6 Click - Daily Activities Score: 23/24 [facility] Scoring Interpretation: Scores greater than 20.5 suggest [...] Note Bev Bobby 64 y.o. male CSN: [id number] Admission: 10/17/2024 6:21 AM Primary Problem: Critical limb ischemia of left lower extremity Fastener Technologist reviewed chart and spoke with patient to complete this Initial Case Management Assessment. PCP: Asad Victor MD (Inactive) - Dr. Palomo Preferred pharmacy is [facility] Emergency Contact: Extended Emergency Contact Information Primary Emergency Contact: Patti Hill Relation: Sister Professor Of Pathology needed? No Insurance: Primary Visit Coverage Payer Plan Sponsor Code Group Number Group Name [facility] MEDICARE [facility] MEDICARE REPLACEMENT [id number] Primary Visit Coverage Subscriber Subscriber ID Subscriber Name Subscriber BANNER Subscriber Address [id number] BEV BOBBY [id number] [place] [address] Secondary Visit Coverage Payer Plan Sponsor Code Group Number Group Name [employer] [facility] Secondary Visit Coverage Subscriber Subscriber ID Subscriber Name Subscriber BANNER Subscriber Address [id number] BEV BOBBY [id number] [place] [address] Patient information: Primary Caregiver: Self Daily Living Activities: Functional Status: Independent Living Arrangements: Alone Type of Residence: Private residence, Single Level [address] [place] [address] Current DME: Equipment Currently Used at Home: joy monterroso Income Information: Income Source: Retired Income/Expense Information: Income meets expenses Current Resources Utilized: Food [place] Housing Circumstances-Z Codes: Housing Circumstances (select all [...] Dialysis Services: None. Living Will/Advance Directive/Power of Steel Fabricator /Guardian: Denied. Additional Comments: Patient is not medically ready for discharge. SW will continue to follow. Mariia Monterroso RN CASE MANAGEMENT * Care Plan - Emilia Alonso RN [...] included. [facility] Department of Surgery Division of Vascular [...] items within [facility] fall prevention program maintained lighting adjusted clutter-free [...] Agree with above assessment and evaluation from resident/CHOPPER FEEDER. * Op Note - Terrell Gautam MD - 10/17/2024 8:52 AM EDT Operative Note Date: 10/17/24 Location: [facility] Name: Bev Bobby, : 1960, Diagnoses: Pre-op Diagnosis Critical limb ischemia of left lower extremity Common femoral artery pseudoaneurysm Post-op Diagnosis Critical limb ischemia of left lower extremity Common femoral artery pseudoaneurysm Procedure(s): Left common/superficial/profunda femoral thromboendarterectomy with bovine patch repair Left external iliac artery/ASSOCIATE DIRECTOR FINANCE stent Attending Surgeon(s): * Terrell Gautam - Primary Relief Pilot(s): * Luna Beckett MD - Resident - [...] Necessity Reasons Recent surgery contiguous with urinary tract/DIRECTOR NURSING SERVICE/colorectal 10/17/24 190 Output (mL) 50 mL 10/18/24 08 Implants Type Name Action Serial No. VASCUGUARD 8 X 8 - [id number] Implanted STENT ENDOPROSTHESIS VIABAHN 9FR [id number] - [id number] Implanted [id number] Specimen: Specimens ID Source Frozen? 1 Other [...] and distal control. We then proceeded with fiolo-zyo-kjlc exposure of the popliteal artery. A medial [...] balloon dilated thestent with a 9 mm [place]. We closed the arteriotomy with a single [...] 10/17/2024 8:52 AM EDT Date: 10/17/24 Location: [facility] Name: Bev Bobby, : 1960, Diagnoses: Pre-op Diagnosis Critical limb ischemia of left lower extremity Common femoral artery pseudoaneurysm Post-op Diagnosis Critical limb ischemia of left lower extremity Common femoral artery pseudoaneurysm Procedure(s): Left common/superficial/profunda femoral thromboendarterectomy with bovine patch repair Left external iliac artery/ASSOCIATE DIRECTOR FINANCE stent Attending Surgeon(s): * Terrell Gautam - Primary Relief Pilot(s): * Luna Beckett MD - Resident - Assisting * Dandy Baltazar MD - Fellow Anesthesia: General ASA: III Blood Administration: Blood Product Administration History None Estimated Blood Loss: 300 mL Drains: Urethral Catheter Temperature probe 16 Fr. (Active) Implants Type Name Action Serial No. VASCUGUARD 8 X 8 - [id number] Implanted STENT ENDOPROSTHESIS VIABAHN 9FR [id number] - [id number] Implanted [id number] Specimen: Specimens ID Source Frozen? 1 Other [...] issues. 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 He previouslyunderwent thrombin injection. He reports pain in his calves. He presents today for scheduled left lower extremity femoral to nyhjv-cwd-rpim popliteal bypass. Planned likely use PTFE. He [...] 16. Results Review {Vanishing Link Review Results :[id number] I have reviewed the latest lab and imaging results. Assessment & Plan Critical limb ischemia of left lower extremity Proceed with scheduled surgery left lower extremity femoral to xjusd-uei-vqii popliteal artery bypass graft. Extensive discussion had [...] Description 11/26/2024 2:00 PM EDT Hospital Encounter [facility] [address] [place] [address] 11/26/2024 2:30 PM EDT Hospital Encounter [facility] [address] [place] [address] 11/26/2024 3:20 PM EDT Office Visit [facility] [address] [facility] 5th Floor [address] [place] [address] Elisabet Schuster, PA [address] [facility] [address] [place] [address] 11/29/2024 2:30 PM EDT Office Visit [facility] [address] [place] [address] Oscar Appiah MD [address] [facility] [address] [place] [address] Pending Results Name Type Priority Associated Diagnoses [...] PREPARE RBC STAT 10/17/2024 8:06 AM EDT CO VEIN BYPASS GRAFT,FEM-POP 10/17/2024 7:38 AM EDT Critical limb ischemia of left lower extremity TYPE AND SCREEN Routine 10/17/2024 7:19 AM EDT POCT GLUCOSE METER UNSOLICITED RESULTS Routine 10/17/2024 6:44 AM EDT documented in this encounter Results * (ABNORMAL) POCT glucose meter (10/19/2024 11:40 AM EDT) [facility] POCT Glucose 207(H) 74 - 99 [...] Comment 10/19/2024 11:42 AM EDT HEALTHCARE LAB Marine Scientist ID KamranJob 10/20/19 11:42 AM EDT HEALTHCARE LAB Device ID [id number] 10/19/2024 11:42 AM EDT HEALTHCARE LAB Specimen Type POC Capillary 10/19/2024 11:42 AM EDT [facility] Blood Capillary blood specimen / Unknown 10/19/2024 11:40 AM EDT 10/19/2024 11:42 AM EDT us Terrell Gautam MD LAB POINT OF CARE TE ST DOCKED DEVICE UNSOLICITED RESULTS Final Result Performing Organization Address City/State/[facility] Co de Phone Number HEALTHCARE LAB [address] [place] [address] * (ABNORMAL) Protime-INR (10/19/2024 8:25 AM EDT) [facility] Prothrombin Time 17.5(H) 12.0 - 14.3 [...] INR 2.5 to 3.5 Prevention of recurrent [place] INR 2.5 to 3.5 us Nirmal Cueto MD LAB BLOOD ORDERABLES Final Result Performing Organization Address [facility]/ZIP Co de Phone Number [facility] [address] [place] [address] * (ABNORMAL) Phosphorus (10/19/2024 8:25 AM EDT) Phosphorus, Plasma 2.2(L) 2.5 - 4.5 mg/dL 10/19/2024 9:12 AM EDT [facility] Blood Venous blood specimen / Unknown Venipuncture / Unknown 10/19/2024 8:25 AM EDT 10/19/2024 8:43 AM EDT us Nirmal Cueto MD LAB BLOOD ORDERABLES Final Result Performing Organization Address [facility] Co de Phone Number [facility] [address] [place] [address] * Magnesium (10/19/2024 8:25 AM EDT) Magnesium, Plasma 2.1 1.9 - 2.4 mg/dL 10/19/2024 9:12 AM EDT [facility] Blood Venous blood specimen / Unknown Venipuncture / Unknown 10/19/2024 8:25 AM EDT 10/19/2024 8:43 AM EDT Nirmal Cueto MD LAB BLOOD ORDERABLES Final Result Performing Organization Address [facility] Co de Phone Number [facility] [address] [place] [address] * (ABNORMAL) Basic metabolic panel (10/19/2024 8:25 [...] Result [facility] [address] [place] [address] * (ABNORMAL) CBC W/O Differential (10/19/2024 8:25 [...] Result [facility] [address] [place] [address] * (ABNORMAL) POCT glucose meter (10/19/2024 7:35 AM EDT) [facility] POCT Glucose 187(H) 74 - 99 [...] Comment 10/19/2024 7:37 AM EDT HEALTHCARE LAB Marine Scientist ID Job Andrew 10/20/19 7:37 AM EDT HEALTHCARE LAB Device ID [id number] 10/19/2024 7:37 AM EDT HEALTHCARE LAB Specimen Type POC Capillary 10/19/2024 7:37 AM EDT HEALTHCARE LAB Blood Capillary blood specimen / Unknown 10/19/2024 7:35 AM EDT 10/19/2024 7:37 AM EDT us eTrrell Gautam MD LAB POINT OF CARE TE ST DOCKED DEVICE UNSOLICITED RESULTS Final Result Performing Organization Address City/State/[facility] Co de Phone Number HEALTHCARE LAB [address] [place] [address] * (ABNORMAL) POCT glucose meter (10/18/2024 7:22 [...] Comment 10/18/2024 7:24 PM EDT HEALTHCARE LAB Marine Scientist ID Mahesh Aldana 10/18/2024 7:24 PM EDT HEALTHCARE LAB Device ID [id number] 10/18/2024 7:24 PM EDT HEALTHCARE LAB Specimen Type POC Capillary 10/18/2024 7:24 PM EDT HEALTHCARE LAB Blood Capillary blood specimen / Unknown 10/18/2024 7:22 PM EDT 10/18/2024 7:24 PM EDT us Terrell Gautam MD LAB POINT OF CARE TE ST DOCKED DEVICE UNSOLICITED RESULTS Final Result Performing Organization Address City/[facility] Co de Phone Number [facility] [address] [place] [address] * (ABNORMAL) POCT glucose meter (10/18/2024 6:07 PM EDT) Pathologist [facility] POCT Glucose 167(H) 74 - 99 mg/dL [...] Comment 10/18/2024 6:09 PM EDT HEALTHCARE LAB Marine Scientist ID David Parks 10/18/2024 6:09 PM EDT HEALTHCARE LAB Device ID [id number] 10/18/2024 6:09 PM EDT HEALTHCARE LAB Specimen Type POC Capillary 10/18/2024 6:09 PM EDT [facility] Blood Capillary blood specimen / Unknown 10/18/2024 6:07 PM EDT 10/18/2024 6:09 PM EDT Terrell Gautam MD LAB POINT OF CARE TE ST DOCKED DEVICE UNSOLICITED RESULTS Final Result Performing Organization Address City/[facility] Co de Phone Number [facility] [address] [place] [address] * (ABNORMAL) POCT glucose meter (10/18/2024 11:56 AM EDT) Pathologist [facility] POCT Glucose 233(H) 74 - 99 mg/dL [...] 10/21/2024 7:42 AM EDT [facility] Marine Scientist ID Venessa Marcano 10/21/2024 7:42 AM EDT [facility] Device ID [id number] 10/21/2024 7:42 AM EDT HEALTHCARE LAB Specimen Type POC Capillary 10/21/2024 7:42 AM EDT HEALTHCARE LAB Blood Capillary blood specimen / Unknown 10/18/2024 11:56 AM EDT 10/21/2024 7:42 AM EDT us Terrell Gautam MD LAB POINT OF CARE TE ST DOCKED DEVICE UNSOLICITED RESULTS Final Result Performing Organization Address [facility] Co de Phone Number [facility] [address] [place] [address] * (ABNORMAL) POCT glucose meter (10/18/2024 9:24 AM EDT) [facility] POCT Glucose 322(H) 74 - 99 [...] Comment 10/21/2024 7:42 AM EDT HEALTHCARE LAB Marine Scientist ID Emilia Alonso 7:42 AM EDT HEALTHCARE LAB Device ID [id number] 10/21/2024 7:42 AM EDT HEALTHCARE LAB Specimen Type POC Venous 10/21/2024 7:42 AM EDT HEALTHCARE LAB Blood Venous blood specimen / Unknown 10/18/2024 9:24 AM EDT 10/21/2024 7:42 AM EDT us Terrell Gautam MD LAB POINT OF CARE TE ST DOCKED DEVICE UNSOLICITED RESULTS Final Result Performing Organization Address City/[facility] Co de Phone Number [facility] [address] [place] [address] * (ABNORMAL) POCT glucose meter (10/18/2024 7:36 AM EDT) [facility] POCT Glucose 215(H) 74 - 99 [...] Comment 10/18/2024 7:38 AM EDT HEALTHCARE LAB Marine Scientist ID Kizzy Godfrey 025 7:38 AM EDT HEALTHCARE LAB Device ID [id number] 10/18/2024 7:38 AM EDT [facility] Specimen Type POC Capillary 10/18/2024 7:38 AM EDT [facility] Blood Capillary blood specimen / Unknown 10/18/2024 7:36 AM EDT 10/18/2024 7:38 AM EDT us Terrell Gautam MD LAB POINT OF CARE TE ST DOCKED DEVICE UNSOLICITED RESULTS Final Result HEALTHCARE LAB [address] [place] [address] * (ABNORMAL) CBC (10/18/2024 2:09 AM EDT) [facility] WBC Count 16.71(H) 3.70 - 10.30 [...] Result [facility] [address] [place] [address] * (ABNORMAL) Basic metabolic panel (10/18/2024 2:09 [...] BLOOD ORDERABLES Final Result Performing Organization Address City/[facility]/ZIP Co de Phone Number [facility] [address] [place] [address] * (ABNORMAL) Magnesium (10/18/2024 2:09 AM EDT) Magnesium, Plasma 1.8(L) 1.9 - 2.4 mg/dL 10/18/2024 2:53 AM EDT [facility] Blood Venous blood specimen / Unknown Venipuncture / Unknown 10/18/2024 2:09 AM EDT 10/18/2024 2:25 AM EDT Nirmal Cueto MD LAB BLOOD ORDERABLES Final Result [facility] [address] [place] [address] * Phosphorus (10/18/2024 2:09 AM EDT) Phosphorus, Plasma 3.7 2.5 - 4.5 mg/dL 10/18/2024 2:53 AM EDT [facility] Blood Venous blood specimen / Unknown Venipuncture / Unknown 10/18/2024 2:09 AM EDT 10/18/2024 2:25 AM EDT Nirmal Cueto MD LAB BLOOD ORDERABLES Final Result Performing Organization Address [facility] Co de Phone Number [facility] [address] [place] [address] * (ABNORMAL) Protime-INR (10/18/2024 2:09 AM EDT) [...] INR 2.5 to 3.5 Prevention of recurrent [place] INR 2.5 to 3.5 Nirmal Cueto MD LAB BLOOD ORDERABLES Final Result Performing Organization Address [facility] Co de Phone Number [facility] [address] [place] [address] * (ABNORMAL) POCT glucose meter (10/18/2024 2:08 AM EDT) POCT Glucose 202(H) 74 - 99 mg/dL 10/18/2024 2:10 AM EDT [facility] Comment:Accuracy of a glucos [...] Comment 10/18/2024 2:10 AM EDT HEALTHCARE LAB Marine Scientist ID Jourdan Grimes II 10/18/2024 2:10 AM EDT HEALTHCARE LAB Device ID [id number] 10/18/2024 2:10 AM EDT HEALTHCARE LAB Specimen Type POC Capillary 10/18/2024 2:10 AM EDT HEALTHCARE LAB Blood Capillary blood specimen / Unknown 10/18/2024 2:08 AM EDT 10/18/2024 2:10 AM EDT us Terrell Gautam MD LAB POINT OF CARE TE ST DOCKED DEVICE UNSOLICITED RESULTS Final Result Performing Organization Address City/State/[facility] Phone Number HEALTHCARE LAB [address] [place] [address] * (ABNORMAL) POCT glucose meter (10/17/2024 10:07 PM EDT) [facility] POCT Glucose 300(H) 74 - 99 [...] Comment 10/17/2024 10:10 PM EDT HEALTHCARE LAB Marine Scientist ID Jourdan Grimes II 10/17/2024 10:10 PM EDT HEALTHCARE LAB Device ID [id number] 10/17/2024 10:10 PM EDT HEALTHCARE LAB Specimen Type POC Capillary 10/17/2024 10:10 PM EDT HEALTHCARE LAB Blood Capillary blood specimen / Unknown 10/17/2024 10:07 PM EDT 10/17/2024 10:10 PM EDT us Terrell Gautam MD LAB POINT OF CARE TE ST DOCKED DEVICE UNSOLICITED RESULTS Final Result Performing Organization Address City/State/[facility] Co de Phone Number HEALTHCARE LAB [address] [place] [address] * (ABNORMAL) POCT glucose meter (10/17/2024 8:07 PM EDT) [facility] POCT Glucose 391(H) 74 - 99 [...] Comment 10/17/2024 8:10 PM EDT HEALTHCARE LAB Marine Scientist ID Cornelio WALTERS Jourdan 10/17/2024 8:10 PM EDT HEALTHCARE LAB Device ID [id number] 10/17/2024 8:10 PM EDT [facility] Specimen Type POC Capillary 10/17/2024 8:10 PM EDT [facility] Blood Capillary blood specimen / Unknown 10/17/2024 8:07 PM EDT 10/17/2024 8:10 PM EDT Terrell Gautam MD LAB POINT OF CARE TE ST DOCKED DEVICE UNSOLICITED RESULTS Final Result Performing Organization Address [facility] Co de Phone Number HEALTHCARE LAB [address] [place] [address] * (ABNORMAL) POCT glucose meter (10/17/2024 4:01 PM EDT) [facility] POCT Glucose 249(H) 74 - 99 [...] 10/17/2024 4:03 PM EDT [facility] Marine Scientist ID Chelsieamanda Keisha 10/17/2024 4:03 PM EDT [facility] Device ID [id number] 10/17/2024 4:03 PM EDT [facility] Specimen Type POC Capillary 10/17/2024 4:03 PM EDT [facility] Blood Capillary blood specimen / Unknown 10/17/2024 4:01 PM EDT 10/17/2024 4:03 PM EDT us Terrell Gautam MD LAB POINT OF CARE TE ST DOCKED DEVICE UNSOLICITED RESULTS Final Result Performing Organization Address City/[facility] Co de Phone Number [facility] [address] [place] [address] * (ABNORMAL) POCT glucose meter (10/17/2024 1:25 PM EDT) [facility] Signature POCT Glucose 225(H) 74 - [...] 10/17/2024 1:27 PM EDT [facility] Marine Scientist ID Kizzy Godfrey 025 1:27 PM EDT [facility] Device ID [id number] 10/17/2024 1:27 PM EDT [facility] Specimen Type POC Capillary 10/17/2024 1:27 PM EDT [facility] Blood Capillary blood specimen / Unknown 10/17/2024 1:25 PM EDT 10/17/2024 1:27 PM EDT us Terrell Gautam MD LAB POINT OF CARE TE ST DOCKED DEVICE UNSOLICITED RESULTS Final Result Performing Organization Address City/[facility] Co de Phone Number [facility] [address] [place] [address] * [place] Less than 1 Hour Intraoperative [...] Seconds 10/29/2024 7:28 AM EDT [facility] Marine Scientist ID Donna Mcmillan 10/29/2024 7:28 AM EDT [facility] ACT Device ID [id number] 10/29/2024 7:28 AM EDT [facility] [...] UNSOLICITED RESULTS Final Result Performing Organization Address City/[facility] de Phone Number [facility] [address] LAB [address] [place] [address] * (ABNORMAL) Blood gas, arterial (10/17/2024 11:48 [...] sult [facility] [address] [place] [address] * POCT ACT (10/17/2024 11:41 AM EDT) ACT+ (HIGH RANGE) 175 68 - 600 Seconds 10/29/2024 7:28 AM EDT [facility] Marine Scientist ID Oneyda Alicea 10/29/2024 7:28 AM EDT [facility] ACT Device ID [id number] 10/29/2024 7:28 AM EDT [facility] Comment 10/29/2024 7:28 AM EDT [facility] Comment: ACT performed by staff [...] UNSOLICITED RESULTS Final Result Performing Organization Address [facility] Co de Phone Number HEALTHCARE [facility] [address] LAB [address] [place] [address] * POCT ACT (10/17/2024 11:11 AM EDT) [facility] Signature ACT+ (HIGH RANGE) 252 68 - 600 Seconds 10/29/2024 7:28 AM EDT [facility] Marine Scientist ID Donna Mcmillan 10/29/2024 7:28 AM EDT [facility] ACT Device ID [id number] 10/29/2024 7:28 AM EDT [facility] Comment 10/29/2024 7:28 AM EDT [facility] Comment: ACT performed by staff [...] UNSOLICITED RESULTS Final Result Performing Organization Address City/[facility] Co de Phone Number [facility]ARE [facility] [address] LAB [address] [place] [address] * (ABNORMAL) Blood gas, arterial (10/17/2024 10:46 [...] 10:54 AM EDT us Jenna Munira Lopez [facility] BLOOD ORDERABLES Final Re sult Performing Organization Address [facility] Co de Phone Number [facility] [address] [place] [address] * POCT ACT (10/17/2024 10:37 AM EDT) ACT+ (HIGH RANGE) 206 68 - 600 Seconds 10/29/2024 7:28 AM EDT [facility]ALTHCARE [facility] Marine Scientist ID Donna Mcmillan 10/29/2024 7:28 AM EDT [facility] ACT Device ID [id number] 10/29/2024 7:28 AM EDT [facility] [...] UNSOLICITED RESULTS Final Result Performing Organization Address [facility] de Phone Number [facility] [address] [place] [address] * Surgical Pathology Exam (10/17/2024 10:27 AM EDT) Case Report Surgical Pathology Case: [id number] Authorizing Provider: Terrell Gautam MD Collected: 10/17/2024 1027 Ordering Location: [facility] A OPERATING ROOM Received: 10/17/2024 1325 Pathologist: [...] cm. The specimen is serially sectioned and herbicide service sales representative sections are submitted in cassette A1. Cold Time: <1m Kenia Aceves 10/21/2024 10:16 AM EDT [facility] [...] Result [facility] [address] [place] [address] * POCT ACT (10/17/2024 10:03 AM EDT) ACT+ (HIGH RANGE) 244 68 - 600 Seconds 10/29/2024 7:28 AM EDT [facility] Marine Scientist ID Donna Mcmillan 10/29/2024 7:28 AM EDT HEALTH[facility]ARE [facility] ACT Device ID [id number] 10/29/2024 7:28 AM EDT HEALTHCARE LAB Comment [...] Final Result [facility] [address] LAB [address] [place] [address] * (ABNORMAL) Blood gas, arterial (10/17/2024 9:45 [...] sult [facility] [address] [place] [address] * (ABNORMAL) Blood gas, arterial (10/17/2024 8:47 [...] sult [facility] [address] [place] [address] * POCT ACT (10/17/2024 8:46 AM EDT) ACT+ (HIGH RANGE) 101 68 - 600 Seconds 10/29/2024 7:28 AM EDT [facility] Marine Scientist ID Donna Mcmillan 10/29/2024 7:28 AM EDT [facility] ACT Device ID [id number] 10/29/2024 7:28 AM EDT [facility] [...] RESULTS Final Result [facility] [address] LAB [address] [place] [address] * Type and Screen (10/17/2024 7:19 AM [...] ORDERAB LES Final Result Performing Organization Address [facility] Co de Phone Number BLOOD BANK [address] [place] [address] * (ABNORMAL) POCT glucose meter (10/17/2024 6:44 AM EDT) [facility] POCT Glucose 178(H) 74 - 99 [...] 10/17/2024 6:49 AM EDT [facility] Marine Scientist ID Hunter Burroughs 10/18/19 6:49 AM EDT [facility] Device ID [id number] 10/17/2024 6:49 AM EDT [facility] Specimen Type POC Capillary 10/17/2024 6:49 AM EDT [facility] Blood Capillary blood specimen / Unknown 10/17/2024 6:44 AM EDT 10/17/2024 6:49 AM EDT us Terrell Gautam MD LAB POINT OF CARE TE ST DOCKED DEVICE UNSOLICITED RESULTS Final Result [facility] [address] [place] [id number] documented in this encounter Visit Diagnoses Diagnosis [...] documented as of this encounter Care Teams Tandem Operator Relationship Specialty Start Date End Date Asad Victor MD [address] [place] [id number] PCP - General 10/07/22 documented as of this encounter
--- OUTSIDE RECORDS SUMMARY | 2024-11-05 21:45 | XMS_ITS | Encounter Summary ---
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 original note were not included. [facility] Department of Surgery Division of Vascular Surgery Surgery Progress Note 11/08/24 Bev Borja Subjective Subjective: HPI 64yoM PMHx COPD, T2DM, HLD, HTN, RLS, CAD s/p PCI (on Xarelto) s/p pacemaker c/b left SANDIP pseudoaneurysm s/p thrombin injection 09/21/24, CLI s/p left femoral endarterectomy with EIA/SINGING TEACHER stenting 10/17/24, who presented to [facility] 11/05/2024 with wound infection. 11/06/24: [...] MD Home meds Hold blood thinners Diabetes ([facility]) Overview Addendum 10/19/2021 10:41 AM [...] completed 10/19 Pseudoaneurysm of left femoral artery ([facility]) COPD (chronic obstructive pulmonary disease) ([facility]) Overview Signed 10/18/2021 7:30 PM by Gallo Gallardo MD Not on home inhalers A-fib ([facility]) Overview Addendum 10/19/2021 10:39 AM by Giovanna Junior APRN Hold anticoagulation Metoprolol restarted BPH (benign prostatic hyperplasia) Overview Addendum 10/19/2021 10:41 AM by Giovanna Junior APRN Flomax restarted Subarachnoid hemorrhage ([facility]) Overview Addendum 10/20/2021 8:23 AM by Giovanna Junior APRN Left frontal, right occipital NSGY consulted - Repeat CTH showing slight worsening of tSAH - no need for further imaging, will continue to follow clinically 10/20: spoke with NSGY via phone and stated to hold ASA and Xarelto for 2 weeks Closed compression fracture of L3 lumbar vertebra, initial encounter ([facility]) Overview Signed 10/18/2021 7:35 PM [...] Overview Signed 10/19/2021 10:50 AM by Giovanna uJnior APRN Encourage cessation Critical limb ischemia of left lower extremity Surgical wound infection Present on Admission: Wound infection 64yoM PMHx COPD, T2DM, HLD, HTN, RLS, CAD s/p PCI (on Xarelto) s/p pacemaker c/b left SANDIP pseudoaneurysm s/p thrombin injection 09/21/24, CLI s/p left femoral endarterectomy with EIA/SINGING TEACHER stenting 10/17/24, who presented to [facility] 11/05/2024 with wound infection. POD [...] 11/08/2024 9:47 AM EDT Associated attestation - Ntahaly Nowak MD - 11/08/2024 9:47 AM EDT [...] 1960 Age: 64 y.o. Patient has a Bottom Polisher: Berger DRAWSTRING KNOTTER-PM Remaining battery longevity adequate. Lead integrity test [...] recommendations. Supporting reports can be found in [employer] file. Micro: Susceptibility data from last 90 days. Collected Specimen Info Organism 11/06/24 Tissue from Other (specify site) Gram Negative Jesus 11/06/24 Swab from Other (specify site) Enterobacter cloacae complex Results Procedure Component Value Units Date/Time Fungal Culture, Routine [[id number]] Collected: 11/06/241127 Order Status: Completed Specimen: Swab from Other (specify site) Updated: 11/08/24 0919 Culture No Fungal Growth <1 Week Fungal Culture, Routine [[id number]] Collected: 11/06/241128 Order Status: Completed Specimen: Swab from Other (specify site) Updated: 11/08/24 0919 Culture No Fungal Growth <1 Week Fungal Culture, Tissue and ISIDRO [[id number]] Collected: 11/06/24 113 Order Status: Completed Specimen: Tissue from Other (specify site) Updated: 11/08/24 0912 Culture Reading Mycological 4 Weeks No Fungal Growth <1 Week ISIDRO No fungal elements seen Blood Culture (Aerobic/Anaerobet Set) [[id number]] Collected: 11/06/24106 Order Status: Completed Specimen: Blood from AC, Left Updated: 11/08/24 0302 Culture No growth at day 2 Blood Culture (Aerobic/Anaerobet Set) [[id number]] Collected: 11/06/24106 Order Status: Completed Specimen: Blood from Hand, Right Updated: 11/08/24 0302 Culture No growth at day 2 Tissue Culture and Gram Stain [[id number]] (Abnormal) Collected: 11/06/241133 Order Status: Completed Specimen: [...] in pairs Routine Culture and Gram Stain [[id number]] (Abnormal) Collected: 11/06/241128 Order Status: Completed Specimen: Swab from Other (specify site) Updated: 11/07/24 1426 Culture Moderate Growth Enterobacter cloacae complex Comment: This isolate has been identified using the FDA Approved MALDI Startister [place] System The organism value for this result has been updated. These results have been appended to the previously preliminary verified report. Gram Stain Result No polymorphonuclear leukocytes seen No organisms seen AFB Culture, Non Respiratory Source and Acid Fast Stain [[id number]] Collected: 11/06/24 1134 Order Status: Completed Specimen: Tissue from Other (specify site) Updated: 11/07/24 1404 Acid Fast Stain No acid fast bacilli seen Routine Culture and Gram Stain [[id number]] Collected: 11/06/241127 Order Status: Completed Specimen: Swab from Other (specify site) Updated: 11/07/24 0855 Culture No growth at day 1 Gram Stain Result No organisms seen No polymorphonuclear leukocytes seen Anaerobic Culture [[id number]] Collected: 11/06/241127 Order Status: Sent Specimen: Swab from Other (specify site) Updated: 11/06/24 1220 Abscess Culture and Gram Stain [[id number]] Collected: 11/06/241127 Order Status: Canceled Specimen: Swab from Other (specify site) Updated: 11/06/24 1220 Anaerobic Culture [[id number]] Collected: 11/06/241128 Order Status: Sent Specimen: Swab from Other (specify site) Updated: 11/06/24 1219 Abscess Culture and Gram Stain [[id number]] Collected: 11/06/241128 Order Status: Canceled Specimen: Swab from Other (specify site) Updated: 11/06/24 121 Anaerobic Culture [[id number]] Collected: 11/06/241133 Order Status: Sent Specimen: Tissue [...] OSH. [facility]in exploration [...] the time spent on the encounter was aypj-zv-bvua providing direct patient care, counseling for the patient/caregiver, and care coordination. [1] Current Facility-Administered Medications Medication Dose Route Frequency Provider Last Rate Last Admin acetaminophen (Tylenol) tablet 1,000 mg 1,000 mg Oral q6h [facility] Anthony Reyes MD 1,000 mg at 11/08/24 0520 aspirin chewable tablet 81 mg 81 mg Oral Daily Reid Daniels MD 81 mg at 11/08/24 0837 cefepime (Maxipime) 2 g in sodium chloride 0.9% 100 mL IVPB (vial adapter required) 2 g [id number] Reid Daniels MD 36.7 mL/hr at 11/08/24 [...] 40 mg 40 mg Oral Nightly Anthony Reeys MD 40 mg at 11/07/242008 rivaroxaban (Xarelto) [...] Outcome: Ongoing, Progressing * Progress Notes - Yloa Parr RN - 11/07/2024 5:35 PM EDT [...] OPAT at a medical/nursing facility (e.g, [facility], Swing Bed, Nursing facility) OPAT Nurse Navigator [...] IV Access: pending Patient Specific Outpatient Circumstances: [address] [place] [address] Contact information Bev Borja [phone] (home) Extended Emergency Contact Information Primary Emergency Contact: Patti Hill Relation: Sister Stock Layer needed? No Outpatient services (including home infusion, [...] via secure chat or staff messaging in [employer]. OPAT Modified program for IV antimicrobial therapy [...] Note Bev Borja 64 y.o. male CSN: [id number] Admission: 11/05/2024 9:45 PM Primary Problem: Wound infection Boomswing Operator reviewed chart and spoke with patient to complete this Initial Case Management Assessment. PCP: Asad Victor MD (Inactive) Dr. Palomo in [facility] Emergency Contact: Extended Emergency Contact Information Primary Emergency Contact: Patti Hill Relation: Sister Stock Layer needed? No Insurance: Primary Visit Coverage Payer Plan Sponsor Code Group Number Group Name [facility] MEDICARE UHC MEDICARE REPLACEMENT [id number] Primary Visit Coverage Subscriber Subscriber ID Subscriber Name Subscriber SSN Subscriber Address [id number] BEV BORJA [id number] [place] [address] Secondary Visit Coverage Payer Plan Sponsor Code Group Number Group Name [employer]ETNA BETTER [facility] MEDICAID AETNA [facility] Secondary Visit Coverage Subscriber Subscriber ID Subscriber Name Subscriber SSN Subscriber Address [id number] BEV BORJA [id number] [place] [address] Patient information: Primary Caregiver: Self Support System: Immediate family Daily Living Activities: Functional Status: Independent Living Arrangements: Alone Type of Residence: Private residence, Single Level [address] [place] [address] Current DME: Equipment Currently Used at Home: walker, rollator Income Information: Income Source: Disabled Income/Expense Information: Income meets expenses Current Resources Utilized: Food [employer] Housing Circumstances-Z Codes: Housing Circumstances (select all [...] Dialysis Services: None Living Will/Advance Directive/Power of Purchasing And Claims Supervisor /Guardian: Have you reviewed your Advance Directive and is it valid for this stay?: No Advance Directive: Not applicable Information Provided on Healthcare Directives: No Pre-existing DNR/DNI Order: No Patient Requests Assistance: No Additional Comments: Patient is not medically ready for discharge. Patient uses [employer] for transportation and will need assistance with discharge transport. SW will continue to follow. Mariia Macedo TOMBSTONE SETTER * Progress Notes - Melecio Echevarria DO - 11/07/2024 9:24 AM EDT Images from the original note were not included. [facility] Department of Surgery Division of Vascular Surgery Surgery Progress Note 11/07/24 Bev Borja Subjective Subjective: HPI 64yoM PMHx COPD, T2DM, HLD, HTN, RLS, CAD s/p PCI (on Xarelto) s/p pacemaker c/b left SANDIP pseudoaneurysm s/p thrombin injection 09/21/24, CLI s/p left femoral endarterectomy with EIA/SINGING TEACHER stenting 10/17/24, who presented to [facility] 11/05/2024 with wound infection. 11/06/24: [...] completed 10/19 Pseudoaneurysm of left femoral artery ([facility]) COPD (chronic obstructive pulmonary disease) ([facility]) Overview Signed 10/18/2021 7:30 PM by Gallo Gallardo MD Not on home inhalers A-fib ([facility]) Overview Addendum 10/19/2021 10:39 AM by Giovanna Junior APRN Hold anticoagulation Metoprolol restarted BPH (benign prostatic hyperplasia) Overview Addendum 10/19/2021 10:41 AM by Giovanna Junior APRN Flomax restarted Subarachnoid hemorrhage ([facility]) Overview Addendum 10/20/2021 8:23 AM by Giovanna Junior APRN Left frontal, right occipital NSGY consulted - Repeat CTH showing slight worsening of tSAH - no need for further imaging, will continue to follow clinically 10/20: spoke with NSGY via phone and stated to hold ASA and Xarelto for 2 weeks Closed compression fracture of L3 lumbar vertebra, initial encounter ([facility]) Overview Signed 10/18/2021 7:35 PM [...] 09/21/24, CLI s/p left femoral endarterectomy with EIA/SINGING TEACHER stenting 10/17/24, who presented to [facility] 11/05/2024 with wound infection. POD [...] Edited by: Melecio Echevarria DO at 11/07/2024 0926 Dispo: Continue Current Level of Care Melecio [...] from the original note were not included. [facility] Department of Surgery Division of [...] of breath, nausea and vomiting. Pain Control: [facility]. Currently well controlled. Objective: Vitals: Vitals: [...] Diet: Regular Anticoagulation/DVT ppx: Held Pain management: [facility] Level of care: Continue Current Level of Care I have answered and addressed all issues and concerns from the patient and nursing staff. 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 [...] Agree with above assessment and evaluation from resident/CUTTER OPERATOR TILE. * Consults - Oscra Appiah MD - 11/06/2024 12:51 PM EDTAssociated [...] the findings. Cardiac Device Check - PRE-OR [facility]Device [facility]: Pre-operative CIED Report Assessment and Sara-Procedural Reommendations: Name: Bev Borja Date: 10/17/2024 : 1960 Age: 64 y.o. Patient has a Bottom Polisher: Berger DRAWSTRING KNOTTER-PM Remaining battery longevity adequate. Lead integrity test [...] Procedure Component Value Units Date/Time Anaerobic Culture [[id number]] Collected: 11/06/241127 Order Status: Sent Specimen: Swab from Other (specify site) Updated: 11/06/241219 Fungal Culture, Routine [[id number]] Collected: 11/06/241127 Order Status: Sent Specimen: Swab from Other (specify site) Updated: 11/06/24 122 Routine Culture and Gram Stain [[id number]] Collected: 11/06/241127 Order Status: Sent Specimen: Swab from Other (specify site) Updated: 11/06/241219 Abscess Culture and Gram Stain [[id number]] Collected: 11/06/241127 Order Status: Canceled Specimen: Swab from Other (specify site) Updated: 11/06/241219 Anaerobic Culture [[id number]] Collected: 11/06/241128 Order Status: Sent Specimen: Swab from Other (specify site) Updated: 11/06/24 121 Fungal Culture, Routine [[id number]] Collected: 11/06/241128 Order Status: Sent Specimen: Swab from Other (specify site) Updated: 11/06/241218 Routine Culture and Gram Stain [[id number]] Collected: 11/06/241128 Order Status: Sent Specimen: Swab from Other (specify site) Updated: 11/06/241218 Abscess Culture and Gram Stain [[id number]] Collected: 11/06/241128 Order Status: Canceled Specimen: Swab from Other (specify site) Updated: 11/06/241218 Anaerobic Culture [[id number]] Collected: 11/06/241133 Order Status: Sent Specimen: Tissue from Other (specify site) Updated: 11/06/241217 Tissue Culture and Gram Stain [[id number]] Collected: 11/06/241133 Order Status: Sent Specimen: Tissue from Other (specify site) Updated: 11/06/241217 AFB Culture, Non Respiratory Source and Acid Fast Stain [[id number]] Collected: 11/06/241133 Order Status: Sent Specimen: Tissue from Other (specify site) Updated: 11/06/241217 Fungal Culture, Tissue and ISIDRO [[id number]] Collected: 11/06/24 1134 Order Status: Sent Specimen: Tissue from Other (specify site) Updated: 11/06/24 1218 Blood Culture (Aerobic/Anaerobet Set) [[id number]] Collected: 11/06/24106 Order Status: Completed Specimen: Blood from AC, Left Updated: 11/06/24402 Culture Culture in lab Blood Culture (Aerobic/Anaerobet Set) [[id number]] Collected: 11/06/24106 Order Status: Completed Specimen: Blood [...] OSH. On [facility], [facility] groin exploration [...] the time spent on the encounter was iciz-nt-ejvp providing direct patient care, counseling for the patient/caregiver, and care coordination. [1] Past Medical History: Diagnosis Date Arthritis Old myocardial infarction History of myocardial infarction [2] Past Surgical History: Procedure Laterality Date ANKLE SURGERY Right CARDIAC PACEMAKER PLACEMENT CAROTID ENDARTERECTOMY N/A 2017 Endarterectomy Carotid Artery from [place] CORONARY ANGIOPLASTY Left Coronary Angiography With Concomitant Left Heart Catheterization from [place] CORONARY ARTERY BYPASS GRAFT N/A 2018 3V ELBOW SURGERY Right ENDARTERECTOMY Left 10/17/2024 common/SFA/Profunda thromboendarterectomy, EIA/SINGING TEACHER stent HERNIA REPAIR KNEE ARTHROSCOPY Left VASCULAR SURGERY Left 09/21/2024 SINGING TEACHER pseudoaneurym injection [3] Family History Problem Relation [...] mg 1,000 mg Oral q6h [facility] Anthony Reyes MD 1,000 mg at [...] Note Bev Borja 64 y.o. male CSN: [id number] Admission: 11/05/2024 9:45 PM Primary Problem: Wound infection Patient in OR today. SW will continue to follow. Mariia Macedo TOMBSTONE SETTER * Op Note - Jerry Holcomb MD - 11/06/2024 11:23 AM EDT Operative Note Date: 11/06/24 Location: [facility] Name: Bev Borja, : 1960, Diagnoses: Pre-op Diagnosis Surgical wound infection Post-op Diagnosis Surgical wound infection Procedure(s): Excisional debridement left groin (skin, subcutaneous tissue. Final measurements 10 x 7 x 6.5 cm) Excisional debridement left thigh (skin, subcutaneous tissue. Final measurements 8 x 2 x 3 cm) Attending Surgeon(s): * Nathaly Nowak - Primary Front End Software Engineer(s): * Luna Beckett MD - Resident [...] from the original note were not included. [facility] Department of Surgery Division of [...] HLD, HTN, RLS who presented to the [facility] on 11/05/2024 with problems with [...] presented to [facility] with wound infection. He has [...] verified. Plan: - [facility] [place] [facility] - NPO, mIVF - Vanc/Zosyn, Blood [...] ENDARTERECTOMY N/A 2017 Endarterectomy Carotid Artery from [place] CORONARY ANGIOPLASTY Left Coronary Angiography With Concomitant Left Heart Catheterization from [place] CORONARY ARTERY BYPASS GRAFT N/A 2018 3V ELBOW SURGERY Right ENDARTERECTOMY Left 10/17/2024 common/SFA/Profunda thromboendarterectomy, EIA/SINGING TEACHER stent HERNIA REPAIR KNEE ARTHROSCOPY Left VASCULAR SURGERY Left 09/21/2024 SINGING TEACHER pseudoaneurym injection [4] Family History Problem Relation [...] Standard Dose 0-5 UnitsSubcutaneous q6h [facility] Anthony Reyes MD 2 Units at [...] to inpatient Once Acknowledged ANTHONY REYES 11/05/24 0920 Consult to Vascular Surgery - Surg Red Once Specialty: Vascular Surgery Provider: (Not yet assigned) Completed [facility] ED Course as of 11/06/24612Nov 05, 2024 2311 On initial evaluation, patient is hemodynamically stable. Patient has history of traumatic left lower extremity SINGING TEACHER pseudoaneurysm s/p repair on 10/17 with Vascular [...] None Disposition Admit Admitting/Attending Physician: NATHALY NOWAK [[id number]] Provider Care Team: [facility] [168] Are they the primary team?: Yes [1] - [1] Past Medical History: Diagnosis Date Arthritis Old myocardial infarction History of myocardial infarction [2] Past Surgical History: Procedure Laterality Date ANKLE SURGERY Right CARDIAC PACEMAKER PLACEMENT CAROTID ENDARTERECTOMY N/A 2017 Endarterectomy Carotid Artery from [place] CORONARY ANGIOPLASTY Left Coronary Angiography With Concomitant Left Heart Catheterization from [place] CORONARY ARTERY BYPASS GRAFT N/A 2018 3V ELBOW SURGERY Right ENDARTERECTOMY Left 10/17/2024 common/SFA/Profunda thromboendarterectomy, EIA/SINGING TEACHER stent HERNIA REPAIR KNEE ARTHROSCOPY Left VASCULAR SURGERY Left 09/21/2024 SINGING TEACHER pseudoaneurym injection [3] Family History Problem Relation [...] Description 11/26/2024 2:00 PM EDT Hospital Encounter [facility] [address] [place] [address] 11/26/2024 2:30 PM EDT Hospital Encounter [facility] [address] [place] [address] 11/26/2024 3:20 PM EDT Office Visit [facility] [address] [place] [address] Elisabet Schuster, GLENDA [address] [place] [address] 11/29/2024 2:30 PM EDT Office Visit [facility] [address] [place] [address] Oscar Appiah MD [address] [place] [address] Pending Results Name Type Priority [...] until 05/18/2026 Discharge Ambulatory referral to NON [facility] Outpatient Referral Routine Pseudoaneurysm of [...] UNSOLICITED RESULTS Routine 11/13/2024 5:16 PM EDT DC NEGATIVE PRESSURE WOUND THERAPY DME </= 50 [...] UNSOLICITED RESULTS Routine 11/11/2024 5:20 PM EDT DC NEGATIVE PRESSURE WOUND THERAPY DME >50 SQ [...] glucose meter (11/14/2024 11:56 AM EDT) [facility] POCT Glucose 225(H) 74 - [...] 11/14/2024 11:57 AM EDT [facility]ALTH[facility]ARE [facility] Chemical Equipment Repairer ID Estefani Sheth 11/14/2024 11:57 AM EDT HEALTH[facility]ARE LAB Device ID [id number] 11/14/2024 11:57 AM EDT [facility] Specimen Type POC Capillary 11/14/2024 11:57 AM EDT [facility] Blood Capillary blood specimen / Unknown 11/14/2024 11:56 AM EDT 11/14/2024 11:57 AM EDT Nathaly Nowak MD LAB POINT OF CARE TE ST DOCKED DEVICE UNSOLICITED RESULTS Final Result Performing Organization Address City/State/[facility] Co de Phone Number HEALTHCARE LAB [address] [place] [address] * (ABNORMAL) POCT glucose meter (11/14/2024 8:05 AM EDT) [facility] POCT Glucose 150(H) 74 - [...] 11/14/2024 8:06 AM EDT [facility] Chemical Equipment Repairer ID Estefani Sheth 11/14/2024 8:06 AM EDT HEALTHCARE LAB Device ID [id number] 11/14/2024 8:06 AM EDT [facility]ALTH[facility]ARE [facility] Specimen Type POC Capillary 11/14/2024 8:06 AM EDT [facility] Blood Capillary blood specimen / Unknown 11/14/2024 8:05 AM EDT 11/14/2024 8:06 AM EDT Nathaly Nowak MD LAB POINT OF CARE TE ST DOCKED DEVICE UNSOLICITED RESULTS Final Result Performing Organization Address City/[facility] de Phone Number [facility] [address] [place] [address] * (ABNORMAL) POCT glucose meter (11/14/2024 3:53 [...] for testing. Comment 11/14/2024 3:55 AM EDT [facility] Chemical Equipment Repairer ID Nelda Gerber 11/15/19 3:55 AM EDT HEALTHCARE LAB Device ID [id number] 11/14/2024 3:55 AM EDT [facility] Specimen Type POC Capillary 11/14/2024 3:55 AM EDT [facility] Blood Capillary blood specimen / Unknown 11/14/2024 3:53 AM EDT 11/14/2024 3:55 AM EDT Nathaly Nowak MD LAB POINT OF CARE TE ST DOCKED DEVICE UNSOLICITED RESULTS Final Result Performing Organization Address City/[facility] Co de Phone Number [facility] [address] [place] [address] * (ABNORMAL) POCT glucose meter (11/13/2024 8:55 [...] 11/13/2024 9:01 PM EDT HEALTHCARE LAB Chemical Equipment Repairer ID Nelda Gerber 11/14/19 9:01 PM EDT HEALTHCARE LAB Device ID [id number] 11/13/2024 9:01 PM EDT [facility]ALTH[facility] Specimen Type POC Capillary 11/13/2024 9:01 PM EDT [facility] Blood Capillary blood specimen / Unknown 11/13/2024 8:55 PM EDT 11/13/2024 9:01 PM EDT Nathaly Nowak MD LAB POINT OF CARE TE ST DOCKED DEVICE UNSOLICITED RESULTS Final Result Performing Organization Address City/State/[facility] Co de Phone Number [facility]ARE [facility] [address] [place] [address] * (ABNORMAL) POCT glucose meter (11/13/2024 5:16 PM EDT) [facility] POCT Glucose 149(H) 74 - [...] 11/13/2024 5:17 PM EDT [facility]ALTH[facility]ARE [facility] Chemical Equipment Repairer ID Estefani Sheth 11/13/2024 5:17 PM EDT HEALTHCARE LAB Device ID [id number] 11/13/2024 5:17 PM EDT [facility] Specimen Type POC Capillary 11/13/2024 5:17 PM EDT [facility] Blood Capillary blood specimen / Unknown 11/13/2024 5:16 PM EDT 11/13/2024 5:17 PM EDT Nathaly Nowak MD LAB POINT OF CARE TE ST DOCKED DEVICE UNSOLICITED RESULTS Final Result [facility] [address] [place] [id number] * DC NEGATIVE PRESSURE WOUND THERAPY DME </= 50 [...] Comment 11/13/2024 12:00 PM EDT [facility] Chemical Equipment Repairer ID Estefani Sheth 11/13/2024 12:00 PM EDT [facility]ARE LAB Device ID [id number] 11/13/2024 12:00 PM EDT [facility] Specimen Type POC Capillary 11/13/2024 12:00 PM EDT [facility] Blood Capillary blood specimen / Unknown 11/13/2024 11:58 AM EDT 11/13/2024 12:00 PM EDT Nathaly Nowak MD LAB POINT OF CARE TE ST DOCKED DEVICE UNSOLICITED RESULTS Final Result Performing Organization Address [facility] Co de Phone Number [facility] [address] [place] [address] * (ABNORMAL) POCT glucose meter (11/13/2024 8:23 AM EDT) POCT Glucose 195(H) 74 - 99 mg/dL 11/13/2024 8:24 AM EDT [employer] [facility] Comment:Accuracy of a glucos e [...] for testing. Comment 11/13/2024 8:24 AM EDT [facility] Chemical Equipment Repairer ID Estefani Sheth 11/13/2024 8:24 AM EDT [employer] LAB Device ID [id number] 11/13/2024 8:24 AM EDT [facility] Specimen Type POC Capillary 11/13/2024 8:24 AM EDT [facility] Blood Capillary blood specimen / Unknown 11/13/2024 8:23 AM EDT 11/13/2024 8:24 AM EDT Result [facility] Nathaly Nowak MD LAB POINT OF CARE TE ST DOCKED DEVICE UNSOLICITED RESULTS Final Result Performing Organization Address City/[facility] Co de Phone Number [facility] [address] [place] [address] * (ABNORMAL) Phosphorus, Plasma (11/13/2024 6:37 AM EDT) Phosphorus, Plasma 1.7(L) 2.5 - 4.5 mg/dL 11/13/2024 7:16 AM EDT [facility] Blood Venous blood specimen / Unknown Venipuncture / Unknown 11/13/2024 6:37 AM EDT 11/13/2024 6:44 AM EDT Result [facility] Nathaly Nowak MD LAB BLOOD ORDERABLES Final Resu lt [facility] [address] [place] [address] * Magnesium, Plasma (11/13/2024 6:37 AM EDT) Pathologist [facility] Magnesium, Plasma 2.0 1.9 - 2.4 mg/dL 11/13/2024 7:16 AM EDT [facility] Blood Venous blood specimen / Unknown Venipuncture / Unknown 11/13/2024 6:37 AM EDT 11/13/2024 6:44 AM EDT us Nathaly Nowak MD LAB BLOOD ORDERABLES Final Resu lt Performing Organization Address City/[facility]/ZIP Co de Phone Number [facility] [address] [place] [address] * (ABNORMAL) CBC W/O Differential (11/13/2024 6:37 AM EDT) Pathologist [facility] WBC Count 11.72(H) 3.70 - 10.30 10*3/uL LAB HEMATOLOGY METHOD 11/13/2024 6:51 AM EDT [facility] RBC Count 2.88(L) 4.60 - 6.10 10*6/uL LAB HEMATOLOGY METHOD 11/13/2024 6:51 AM EDT [facility] HGB 8.5(L) 13.7 - 17.5 g/dL LAB HEMATOLOGY METHOD 11/13/2024 6:51 AM EDT [facility] HCT 26.4(L) 40.0 - 51.0 % LAB HEMATOLOGY METHOD 11/13/2024 6:51 AM EDT [facility] Platelet Count 398(H) 155 - 369 10*3/uL LAB HEMATOLOGY METHOD 11/13/2024 6:51 AM EDT [facility] MCV 92 79 - 98 fL LAB HEMATOLOGY METHOD 11/13/2024 6:51 AM EDT [facility] MCH 29.5 26.0 - 32.0 pg LAB HEMATOLOGY METHOD 11/13/2024 6:51 AM EDT [facility] MCHC 32.2 30.7 - 35.5 g/dL LAB HEMATOLOGY METHOD 11/13/2024 6:51 AM EDT [facility] RDW 13.6 11.5 - 14.5 % LAB HEMATOLOGY METHOD 11/13/2024 6:51 AM EDT [facility] MPV 8.9 8.8 - 12.5 fL LAB HEMATOLOGY METHOD 11/13/2024 6:51 AM EDT [facility] nRBC 0.0 <=0.0 per 100 WBCs LAB HEMATOLOGY METHOD 11/13/2024 6:51 AM EDT [facility] Blood Venous blood specimen / Unknown Venipuncture / Unknown 11/13/2024 6:37 AM EDT 11/13/2024 6:44 AM EDT us Nathaly Nowak MD LAB BLOOD ORDERABLES Final Resu lt [facility] [address] [place] [address] * (ABNORMAL) Basic Metabolic Panel, Plasma (11/13/2024 6:37 AM EDT) Glucose, Plasma 200(H) 74 - 99 mg/dL 11/13/2024 7:16 AM EDT [facility] BUN, Plasma 10 8 - 23 mg/dL 11/13/2024 7:16 AM EDT [facility] Creatinine, Plasma 0.68(L) 0.70 - 1.20 mg/dL 11/13/2024 7:16 AM EDT [facility] BUN/Creatinine Ratio 15 11/13/2024 7:16 AM EDT [facility] Sodium, Plasma 135(L) 136 - 145 mmol/L 11/13/2024 7:16 AM EDT [facility] Potassium, Plasma 3.9 3.6 - 4.9 mmol/L 11/13/2024 7:16 AM EDT [facility] Chloride, Plasma 107 97 - 107 mmol/L 11/13/2024 7:16 AM EDT [facility] CO2, Plasma 21(L) 22 - 29 mmol/L 11/13/2024 7:16 AM EDT [facility] Anion Gap 7 6 - 16 mmol/L 11/13/2024 7:16 AM EDT [facility] Total Calcium, Plasma 8.1(L) 8.9 - 10.2 mg/dL 11/13/2024 7:16 AM EDT [facility] eGFRcr 103.2 mL/min/1.7 3m*2 11/13/2024 7:16 AM EDT [facility] Comment:Reported eGFRcr in m L/min/1.73m2 is based the CKD-EPI 2020 equation that does not use a race coefficient. Blood Venous blood specimen / Unknown Venipuncture / Unknown 11/13/2024 6:37 AM EDT 11/13/2024 6:44 AM EDT us Nathaly Nowak MD LAB BLOOD ORDERABLES Final Resu lt Performing Organization Address City/[facility]/ZIP Co de Phone Number [facility] [address] [place] [address] * (ABNORMAL) POCT glucose meter (11/12/2024 8:27 PM EDT) [facility] POCT Glucose 175(H) 74 - [...] 11/12/2024 8:29 PM EDT [facility] Chemical Equipment Repairer ID Nelda Gerber 11/13/19 8:29 PM EDT [facility] LAB Device ID [id number] 11/12/2024 8:29 PM EDT [facility] Specimen Type POC Capillary 11/12/2024 8:29 PM EDT [facility] Blood Capillary blood specimen / Unknown 11/12/2024 8:27 PM EDT 11/12/2024 8:29 PM EDT us Nathaly Nowak MD LAB POINT OF CARE TE ST DOCKED DEVICE UNSOLICITED RESULTS Final Result [facility] [address] [place] [address] * (ABNORMAL) POCT glucose meter (11/12/2024 5:08 PM EDT) [facility] POCT Glucose 157(H) 74 - [...] 5:10 PM EDT [facility] Chemical Equipment Repairer ID Wade Feliciano 5:10 PM EDT [facility] Device ID [id number] 11/12/2024 5:10 PM EDT [facility] Specimen Type POC Capillary 11/12/2024 5:10 PM EDT [facility] Blood Capillary blood specimen / Unknown 11/12/2024 5:08 PM EDT 11/12/2024 5:10 PM EDT Nathaly Nowak MD LAB POINT OF CARE TE ST DOCKED DEVICE UNSOLICITED RESULTS Final Result [facility] [address] [place] [address] * (ABNORMAL) POCT glucose meter (11/12/2024 12:36 PM EDT) [facility] POCT Glucose 224(H) 74 - [...] 12:38 PM EDT [facility] Chemical Equipment Repairer ID Wade Feliciano 12:38 PM EDT [facility] Device ID [id number] 11/12/2024 12:38 PM EDT [facility] Specimen Type POC Capillary 11/12/2024 12:38 PM EDT [facility] Blood Capillary blood specimen / Unknown 11/12/2024 12:36 PM EDT 11/12/2024 12:38 PM EDT Nathaly Nowak MD LAB POINT OF CARE TE ST DOCKED DEVICE UNSOLICITED RESULTS Final Result Performing Organization Address City/[facility]/ZIP Co de Phone Number [facility] [address] [place] [address] * Clostridiodes (Clostridium) difficile PCR (11/12/2024 9:50 AM EDT) C difficile PCR toxin B gene DNA Result Not Detected Not Detected 11/12/2024 11:[address] [facility] Stool Rectum structure / Unknown Non-blood Collection / Unknown 11/12/2024 9:50 AM EDT 11/12/2024 10:04 AM EDT Narrative [facility] - 11/12/2024 11:54 AM [...] ATIYA FRITZ Final Result Performing Organization Address City/[facility]/ZIP Co de Phone Number [facility] [address] [place] [address] * Comprehensive GI Panel by PCR (11/12/2024 9:50 AM EDT) Campylobacter PCR Result Not Detected Not Detected 11/12/2024 2:47 PM EDT [facility] Plesiomonas shigelloides PCR Result Not Detected Not Detected 11/12/2024 2:47 PM EDT [facility] Salmonella PCR Result Not Detected Not Detected 11/12/2024 2:47 PM EDT [facility] Vibrio species PCR Result Not Detected Not Detected 11/12/2024 2:47 PM EDT [facility] Vibrio cholerae PCR Result Not Detected Not Detected 11/12/2024 2:47 PM EDT [facility] Yersinia enterocolitica PCR Result Not Detected Not Detected 11/12/2024 2:47 PM EDT [facility] Enteroaggregative E. coli (EAEC) PCR Result Not Detected Not Detected 11/12/2024 2:47 PM EDT [facility] Enteropathogenic E. coli (EPEC) PCR Result Not Detected Not Detected 11/12/2024 2:47 PM EDT [facility] Enterotoxigenic E. coli (ETEC) lt/st PCR Result Not Detected Not Detected 11/12/2024 2:47 PM EDT [facility] Shiga-like Toxin-Producing E.coli (STEC) stx1/stx2 PCR Resu Not Detected Not Detected 11/12/2024 2:47 PM EDT [facility] E coli 0157 PCR Result Not Detected Not Detected 11/12/2024 2:47 PM EDT [facility] Shigella/Enteroinvas tam E. coli (EIEC) PCR Result Not Detected Not Detected 11/12/2024 2:47 PM EDT [facility] Cryptosporidium PCR Result Not Detected Not Detected 11/12/2024 2:47 PM EDT [facility] Cyclospora cayetanensis PCR Result Not Detected Not Detected 11/12/2024 2:47 PM EDT [facility] Entamoeba histolytica PCR Result Not Detected Not Detected 11/12/2024 2:47 PM EDT [facility] Giardia duodenalis (aka Giardia lamblia) PCR Result Not Detected Not Detected 11/12/2024 2:47 PM EDT [facility] Adenovirus F 40/41 PCR Result Not Detected Not Detected 11/12/2024 2:47 PM EDT [facility] Astrovirus PCR Result Not Detected Not Detected 11/12/2024 2:47 PM EDT [facility] Norovirus GI/GII PCR Result Not Detected Not Detected 11/12/2024 2:47 PM EDT [facility] Rotavirus A PCR Result Not Detected Not Detected 11/12/2024 2:47 PM EDT [facility] Sapovirus PCR Result Not Detected Not Detected 11/12/2024 2:47 PM EDT [facility] Stool Rectum structure / Unknown Non-blood Collection / Unknown 11/12/2024 9:50 AM EDT 11/12/2024 10:04 AM EDT Narrative [facility] - 11/12/2024 2:47 PM EDT [...] indicated. Nathaly Nowak MD LAB MICROBIOLOGY [facility] Final Result [facility] [address] [place] [address] * C-reactive protein (11/12/2024 9:48 AM EDT) CRP, Plasma <3.0 <=8.0 mg/L 11/12/2024 10:28 AM EDT [facility] Blood Venous blood specimen / Unknown Venipuncture / Unknown 11/12/2024 9:48 AM EDT 11/12/2024 9:59 AM EDT Narrative [facility] - 11/12/2024 10:28 AM EDT This CRP test is appropriate for assessment of infection, systemic inflammation and/or tissue injury. To assess cardiovascular disease risk order high sensitivity CRP (CRPH). us Nathaly Nowak MD LAB BLOOD ORDERABLES Final Resu lt Performing Organization Address City/[facility]/ZIP Co de Phone Number [facility] [address] [place] [address] * (ABNORMAL) POCT glucose meter (11/12/2024 8:20 AM EDT) [facility] POCT Glucose 138(H) 74 - [...] 11/12/2024 8:21 AM EDT [facility] Chemical Equipment Repairer ID Wade Feliciano 8:21 AM EDT [employer] [facility] Device ID [id number] 11/12/2024 8:21 AM EDT [facility] Specimen Type POC Capillary 11/12/2024 8:21 AM EDT [facility] Blood Capillary blood specimen / Unknown 11/12/2024 8:20 AM EDT 11/12/2024 8:21 AM EDT Nathaly Nowak MD LAB POINT OF CARE TE ST DOCKED DEVICE UNSOLICITED RESULTS Final Result Performing Organization Address [facility] Co de Phone Number [facility] [address] [place] [address] * (ABNORMAL) POCT glucose meter (11/11/2024 8:18 PM EDT) [facility] POCT Glucose 248(H) 74 - [...] Comment 11/11/2024 8:20 PM EDT [facility] Chemical Equipment Repairer ID Nelda Gerber 11/12/19 8:20 PM EDT [facility] LAB Device ID [id number] 11/11/2024 8:20 PM EDT [facility] Specimen Type POC Capillary 11/11/2024 8:20 PM EDT [facility] Blood Capillary blood specimen / Unknown 11/11/2024 8:18 PM EDT 11/11/2024 8:20 PM EDT Nathaly Nowak MD LAB POINT OF CARE TE ST DOCKED DEVICE UNSOLICITED RESULTS Final Result Performing Organization Address City/[facility]/ZIP Co de Phone Number [facility] [address] [place] [address] * (ABNORMAL) POCT glucose meter (11/11/2024 5:59 [...] 11/11/2024 6:01 PM EDT [facility] Chemical Equipment Repairer ID Wade Feliciano 6:01 PM EDT [facility] Device ID [id number] 11/11/2024 6:01 PM EDT [facility] Specimen Type POC Capillary 11/11/2024 6:01 PM EDT [facility] Blood Capillary blood specimen / Unknown 11/11/2024 5:59 PM EDT 11/11/2024 6:01 PM EDT Nathaly Nowak MD LAB POINT OF CARE TE ST DOCKED DEVICE UNSOLICITED RESULTS Final Result Performing Organization Address City/[facility]/ZIP Co de Phone Number [facility] [address] [place] [address] * POCT glucose meter (11/11/2024 5:20 PM [...] 11/11/2024 5:22 PM EDT [facility] Chemical Equipment Repairer ID Wade Feliciano 5:22 PM EDT [facility] Device ID [id number] 11/11/2024 5:22 PM EDT [facility] Specimen Type POC Capillary 11/11/2024 5:22 PM EDT [facility] Blood Capillary blood specimen / Unknown 11/11/2024 5:20 PM EDT 11/11/2024 5:22 PM EDT Nathaly Nowak MD LAB POINT OF CARE TE ST DOCKED DEVICE UNSOLICITED RESULTS Final Result Performing Organization Address City/State/[facility] Co de Phone Number [facility] [address] [place] [address] * DC NEGATIVE PRESSURE WOUND THERAPY DME >50 SQ [...] 11/11/2024 12:10 PM EDT [facility] Chemical Equipment Repairer ID Wade Feliciano 12:10 PM EDT [employer] [facility] Device ID [id number] 11/11/2024 12:10 PM EDT [facility] Specimen Type POC Capillary 11/11/2024 12:10 PM EDT [facility] Blood Capillary blood specimen / Unknown 11/11/2024 12:08 PM EDT 11/11/2024 12:10 PM EDT us Nathaly Nowak MD LAB POINT OF CARE TE ST DOCKED DEVICE UNSOLICITED RESULTS Final Result Performing Organization Address City/State/[facility] Co de Phone Number [facility] [address] [place] [address] * (ABNORMAL) POCT glucose meter (11/11/2024 9:08 [...] 9:09 AM EDT [facility] Chemical Equipment Repairer ID Wade Feliciano 9:09 AM EDT [facility] Device ID [id number] 11/11/2024 9:09 AM EDT [facility] Specimen Type POC Capillary 11/11/2024 9:09 AM EDT [facility] Blood Capillary blood specimen / Unknown 11/11/2024 9:08 AM EDT 11/11/2024 9:09 AM EDT Nathaly Nowak MD LAB POINT OF CARE TE ST DOCKED DEVICE UNSOLICITED RESULTS Final Result Performing Organization Address City/[facility]/ZIP Co de Phone Number [facility] [address] [place] [address] * POCT glucose meter (11/11/2024 8:27 AM EDT) POCT Glucose 87 74 - 99 mg/dL 11/11/2024 8:28 AM EDT [employer] [facility] Comment:Accuracy of a glucos e [...] for testing. Comment 11/11/2024 8:28 AM EDT [employer] [facility] Chemical Equipment Repairer ID Wade Feliciano 8:28 AM EDT [employer] [facility] Device ID [id number] 11/11/2024 8:28 AM EDT [facility] Specimen Type POC Capillary 11/11/2024 8:28 AM EDT [facility] Blood Capillary blood specimen / Unknown 11/11/2024 8:27 AM EDT 11/11/2024 8:28 AM EDT Nathaly Nowak MD LAB POINT OF CARE TE ST DOCKED DEVICE UNSOLICITED RESULTS Final Result Performing Organization Address City/[facility]/ZIP Co de Phone Number [facility] [address] [place] [address] * (ABNORMAL) Basic Metabolic Panel, Plasma (11/11/2024 1:12 AM EDT) Glucose, Plasma 122(H) 74 - 99 mg/dL 11/11/2024 1:12 AM EDT [facility] BUN, Plasma 10 8 - 23 mg/dL 11/11/2024 1:12 AM EDT [facility] Creatinine, Plasma 0.82 0.70 - 1.20 mg/dL 11/11/2024 1:12 AM EDT [facility] BUN/Creatinine Ratio 12 11/11/2024 1:12 AM EDT [facility] Sodium, Plasma 137 136 - 145 mmol/L 11/11/2024 1:12 AM EDT [facility] Potassium, Plasma 3.9 3.6 - 4.9 mmol/L 11/11/2024 1:12 AM EDT [facility] Chloride, Plasma 110(H) 97 - 107 mmol/L 11/11/2024 1:12 AM EDT [facility] CO2, Plasma 20(L) 22 - 29 mmol/L 11/11/2024 1:12 AM EDT [facility] Anion Gap 7 6 - 16 mmol/L 11/11/2024 1:12 AM EDT [facility] Total Calcium, Plasma 7.6(L) 8.9 - 10.2 mg/dL 11/11/2024 1:12 AM EDT [facility] eGFRcr 97.5 mL/min/1.7 3m*2 11/11/2024 1:12 AM EDT [facility] Comment:Reported eGFRcr in m L/min/1.73m2 is based the CKD-EPI 2020 equation that does not use a race coefficient. Blood Venous blood specimen / Unknown 11/11/2024 12:42 AM EDT us Nathaly Nowak MD LAB BLOOD ORDERABLES Final Resu lt [facility] [address] [place] [address] * (ABNORMAL) CBC W/O Differential (11/11/2024 12:56 AM EDT) WBC Count 11.83(H) 3.70 - 10.30 10*3/uL LAB HEMATOLOGY METHOD 11/11/2024 12:56 AM EDT [facility] RBC Count 2.97(L) 4.60 - 6.10 10*6/uL LAB HEMATOLOGY METHOD 11/11/2024 12:56 AM EDT [facility] HGB 8.9(L) 13.7 - 17.5 g/dL LAB HEMATOLOGY METHOD 11/11/2024 12:56 AM EDT [facility] HCT 27.2(L) 40.0 - 51.0 % LAB HEMATOLOGY METHOD 11/11/2024 12:56 AM EDT [facility] Platelet Count 444(H) 155 - 369 10*3/uL LAB HEMATOLOGY METHOD 11/11/2024 12:56 AM EDT [facility] MCV 92 79 - 98 fL LAB HEMATOLOGY METHOD 11/11/2024 12:56 AM EDT [facility] MCH 30.0 26.0 - 32.0 pg LAB HEMATOLOGY METHOD 11/11/2024 12:56 AM EDT [facility] MCHC 32.7 30.7 - 35.5 g/dL LAB HEMATOLOGY METHOD 11/11/2024 12:56 AM EDT [facility] RDW 13.3 11.5 - 14.5 % LAB HEMATOLOGY METHOD 11/11/2024 12:56 AM EDT [facility] MPV 9.0 8.8 - 12.5 fL LAB HEMATOLOGY METHOD 11/11/2024 12:56 AM EDT [facility] nRBC 0.0 <=0.0 per 100 WBCs LAB HEMATOLOGY METHOD 11/11/2024 12:56 AM EDT [facility] Blood Venous blood specimen / Unknown 11/11/2024 12:42 AM EDT us Nathaly Nowak MD LAB BLOOD ORDERABLES Final Resu lt [facility] [address] [place] [address] * (ABNORMAL) POCT glucose meter (11/10/2024 8:25 PM EDT) Pathologist [facility] POCT Glucose 144(H) 74 - 99 mg/dL 11/10/2024 8:28 PM EDT [facility] Comment:Accuracy of a glucos e [...] Comment 11/10/2024 8:28 PM EDT [facility] Chemical Equipment Repairer ID Nelda Gerber 11/11/19 8:28 PM EDT [facility] Device ID [id number] 11/10/2024 8:28 PM EDT [facility] Specimen Type POC Capillary 11/10/2024 8:28 PM EDT [facility] Blood Capillary blood specimen / Unknown 11/10/2024 8:25 PM EDT 11/10/2024 8:28 PM EDT Nathaly Nowak MD LAB POINT OF CARE TE ST DOCKED DEVICE UNSOLICITED RESULTS Final Result Performing Organization Address City/[facility] Co de Phone Number [facility] [address] [place] [address] * (ABNORMAL) POCT glucose meter (11/10/2024 4:45 PM EDT) [facility] POCT Glucose 155(H) 74 - [...] Comment 11/10/2024 4:47 PM EDT [facility] Chemical Equipment Repairer ID Esperanza Parks 11/10/2024 4:47 PM EDT [facility] LAB Device ID [id number] 11/10/2024 4:47 PM EDT [facility] Specimen Type POC Capillary 11/10/2024 4:47 PM EDT [facility] Blood Capillary blood specimen / Unknown 11/10/2024 4:45 PM EDT 11/10/2024 4:47 PM EDT us aNthaly Nowak MD LAB POINT OF CARE TE ST DOCKED DEVICE UNSOLICITED RESULTS Final Result [facility] [address] [place] [address] * (ABNORMAL) POCT glucose meter (11/10/2024 12:13 PM EDT) Pathologist [facility] POCT Glucose 131(H) 74 - 99 mg/dL [...] 11/10/2024 12:14 PM EDT [facility] Chemical Equipment Repairer ID Esperanza Parks 11/10/2024 12:14 PM EDT [facility] LAB Device ID [id number] 11/10/2024 12:14 PM EDT [facility] Specimen Type POC Capillary 11/10/2024 12:14 PM EDT [facility] Blood Capillary blood specimen / Unknown 11/10/2024 12:13 PM EDT 11/10/2024 12:14 PM EDT Nathaly Nowak MD LAB POINT OF CARE TE ST DOCKED DEVICE UNSOLICITED RESULTS Final Result Performing Organization Address City/[facility]/ZIP Co de Phone Number [facility] [address] [place] [address] * Vancomycin, Peak, Plasma Please draw ~2 hours after 0800 dose of vancomycin finishes infusing. Consider obtaining level via peripheral stick. If peripheral stick is not feasible, please ensure that line is flushed well prior to drawing level. Than... (11/10/2024 10:56 AM EDT) Pathologist [facility] Vancomycin, Peak, Plasma 23.8 20.0 - 40.0 ug/mL 11/10/2024 11:25 AM EDT [facility] Blood Venous blood specimen / Unknown Venipuncture / Unknown 11/10/2024 10:56 AM EDT 11/10/2024 11:00 AM EDT Narrative [facility] - 11/10/2024 11:25 AM EDT Therapeutic Peak level: 20-40ug/mL Supra-therapeutic Peak level: >40 ug/mL us Abigail Seay MD LAB BLOOD ORDERABLES Final Res ult Performing Organization Address [facility] Co de Phone Number [facility] [address] [place] [address] * (ABNORMAL) POCT glucose meter (11/10/2024 8:03 [...] 11/10/2024 8:04 AM EDT [facility]ALTH[facility]ARE [facility] Chemical Equipment Repairer ID Esperanza Parks 11/10/2024 8:04 AM EDT [facility] LAB Device ID [id number] 11/10/2024 8:04 AM EDT [facility] Specimen Type POC Capillary 11/10/2024 8:04 AM EDT [facility] Blood Capillary blood specimen / Unknown 11/10/2024 8:03 AM EDT 11/10/2024 8:04 AM EDT us Nathaly Nowak MD LAB POINT OF CARE TE ST DOCKED DEVICE UNSOLICITED RESULTS Final Result Performing Organization Address [facility] Co de Phone Number [facility] [address] [place] [address] * Vancomycin, Trough, Plasma Please draw ~30 minutes prior to dose due at 0800 on 11/10. Please do NOThold dose awaiting level to return. Consider obtaining level via peripheral stick. If peripheral stick is not feasible, please ensure that line is... (11/10/2024 7:27 AM EDT) Vancomycin, Trough, Plasma 16.2 10.0 - 20.0 ug/mL 11/10/2024 8:24 AM EDT [facility] Blood Venous blood specimen / Unknown Venipuncture / Unknown 11/10/2024 7:27 AM EDT 11/10/2024 7:51 AM EDT [facility] - 11/10/2024 8:24 AM EDT Therapeutic Trough level: 10-20ug/mL Supra-therapeutic Trough level: >20 ug/mL us Abigail Seay MD LAB BLOOD ORDERABLES Final Res ult [facility] [address] [place] [address] * (ABNORMAL) CBC and Differential (11/10/2024 12:31 AM EDT) WBC Count 10.80(H) 3.70 - 10.30 10*3/uL LAB HEMATOLOGY METHOD 11/10/2024 12:53 AM EDT [facility] RBC Count 3.06(L) 4.60 - 6.10 10*6/uL LAB HEMATOLOGY METHOD 11/10/2024 12:53 AM EDT [facility] HGB 9.1(L) 13.7 - 17.5 g/dL LAB HEMATOLOGY METHOD 11/10/2024 12:53 AM EDT [facility] HCT 28.0(L) 40.0 - 51.0 % LAB HEMATOLOGY METHOD 11/10/2024 12:53 AM EDT [facility] Platelet Count 501(H) 155 - 369 10*3/uL LAB HEMATOLOGY METHOD 11/10/2024 12:53 AM EDT [facility] MCV 92 79 - 98 fL LAB HEMATOLOGY METHOD 11/10/2024 12:53 AM EDT [facility] MCH 29.7 26.0 - 32.0 pg LAB HEMATOLOGY METHOD 11/10/2024 12:53 AM EDT [facility] MCHC 32.5 30.7 - 35.5 g/dL LAB HEMATOLOGY METHOD 11/10/2024 12:53 AM EDT [facility] RDW 13.2 11.5 - 14.5 % LAB HEMATOLOGY METHOD 11/10/2024 12:53 AM EDT [facility] MPV 8.8 8.8 - 12.5 fL LAB HEMATOLOGY METHOD 11/10/2024 12:53 AM EDT [facility] nRBC 0.0 <=0.0 per 100 WBCs LAB HEMATOLOGY METHOD 11/10/2024 12:53 AM EDT [facility] Differential Type Automated LAB HEMATOLOGY METHOD 11/10/2024 12:53 AM EDT [facility] Neutrophils % 77 % LAB HEMATOLOGY METHOD 11/10/2024 12:53 AM EDT [facility] Lymphocytes % 13 % LAB HEMATOLOGY METHOD 11/10/2024 12:53 AM EDT [facility] Monocytes % 8 % LAB HEMATOLOGY METHOD 11/10/2024 12:53 AM EDT [facility] Eosinophils % 1 % LAB HEMATOLOGY METHOD 11/10/2024 12:53 AM EDT [facility] Basophils % 0 % LAB HEMATOLOGY METHOD 11/10/2024 12:53 AM EDT [facility] Immature Granulocytes % 1 % LAB HEMATOLOGY METHOD 11/10/2024 12:53 AM EDT [facility] Neutrophils Absolute 8.32(H) 1.60 - 6.10 10*3/uL LAB HEMATOLOGY METHOD 11/10/2024 12:53 AM EDT [facility] Lymphocytes Absolute 1.40 1.20 - 3.90 10*3/uL LAB HEMATOLOGY METHOD 11/10/2024 12:53 AM EDT [facility] Monocytes Absolute 0.89 0.30 - 0.90 10*3/uL LAB HEMATOLOGY METHOD 11/10/2024 12:53 AM EDT [facility] Eosinophils Absolute 0.09 0.00 - 0.50 10*3/uL LAB HEMATOLOGY METHOD 11/10/2024 12:53 AM EDT [facility] Basophils Absolute 0.04 0.00 - 0.10 10*3/uL LAB HEMATOLOGY METHOD 11/10/2024 12:53 AM EDT [facility] Immature Granulocytes Absolute 0.06 0.00 - 0.06 10*3/uL LAB HEMATOLOGY METHOD 11/10/2024 12:53 AM EDT [facility] Blood Venous blood specimen / Unknown Venipuncture / Unknown 11/10/2024 12:31 AM EDT 11/10/2024 12:37 AM EDT Narrative [facility] - 11/10/2024 12:53 AM EDT Therapeutic decision making should be based on absolute values, rather than percentages. us Nathaly Nowak MD LAB BLOOD ORDERABLES Final Resu lt [facility] [address] [place] [address] * (ABNORMAL) Comprehensive Metabolic Panel, Plasma (11/10/2024 12:31 AM EDT) Glucose, Plasma 185(H) 74 - 99 mg/dL 11/10/2024 1:05 AM EDT [facility] BUN, Plasma 9 8 - 23 mg/dL 11/10/2024 1:05 AM EDT [facility] Creatinine, Plasma 0.72 0.70 - 1.20 mg/dL 11/10/2024 1:05 AM EDT [facility] BUN/Creatinine Ratio 13 11/10/2024 1:05 AM EDT [facility] Sodium, Plasma 135(L) 136 - 145 mmol/L 11/10/2024 1:05 AM EDT [facility] Potassium, Plasma 4.0 3.6 - 4.9 mmol/L 11/10/2024 1:05 AM EDT [facility] Chloride, Plasma 106 97 - 107 mmol/L 11/10/2024 1:05 AM EDT [facility] CO2, Plasma 19(L) 22 - 29 mmol/L 11/10/2024 1:05 AM EDT [facility] Anion Gap 10 6 - 16 mmol/L 11/10/2024 1:05 AM EDT [facility] Total Calcium, Plasma 7.8(L) 8.9 - 10.2 mg/dL 11/10/2024 1:05 AM EDT [facility] Total Protein 5.6(L) 6.3 - 7.9 g/dL 11/10/2024 1:05 AM EDT [facility] Albumin, Plasma 3.1(L) 3.5 - 5.2 g/dL 11/10/2024 1:05 AM EDT [facility] AST, Plasma 33 10 - 50 U/L 11/10/2024 1:05 AM EDT [facility] ALT, Plasma 25 10 - 50 U/L 11/10/2024 1:05 AM EDT [facility] Alkaline Phosphatase, Plasma 108 40 - 115 U/L 11/10/2024 1:05 AM EDT [facility] Total Bilirubin, Plasma <0.2(L) 0.2 - 1.1 mg/dL 11/10/2024 1:05 AM EDT [facility] eGFRcr 101.4 mL/min/1.7 3m*2 11/10/2024 1:05 AM EDT [facility] Comment:Reported eGFRcr in m L/min/1.73m2 is based the CKD-EPI 2020 equation that does not use a race coefficient. Blood Venous blood specimen / Unknown Venipuncture / Unknown 11/10/2024 12:31 AM EDT 11/10/2024 12:37 AM EDT us Nathaly Nowak MD LAB BLOOD ORDERABLES Final Resu lt [facility] [address] [place] [address] * (ABNORMAL) POCT glucose meter (11/09/2024 8:04 [...] 11/09/2024 8:06 PM EDT [facility] Chemical Equipment Repairer ID Maximiliano Hansen II 11/09/2024 8:06 PM EDT [facility] Device ID [id number] 11/09/2024 8:06 PM EDT [facility] Specimen Type POC Capillary 11/09/2024 8:06 PM EDT [facility] Blood Capillary blood specimen / Unknown 11/09/2024 8:04 PM EDT 11/09/2024 8:06 PM EDT Nathaly Nowak MD LAB POINT OF CARE TE ST DOCKED DEVICE UNSOLICITED RESULTS Final Result Performing Organization Address [facility] de Phone Number [facility] [address] [place] [address] * (ABNORMAL) POCT glucose meter (11/09/2024 4:36 PM EDT) [facility] POCT Glucose 166(H) 74 - [...] 11/09/2024 4:38 PM EDT [facility] Chemical Equipment Repairer ID Kristian Sosa 11/09/2024 4:38 PM EDT [facility] Device ID [id number] 11/09/2024 4:38 PM EDT [facility] Specimen Type POC Capillary 11/09/2024 4:38 PM EDT [facility] Blood Capillary blood specimen / Unknown 11/09/2024 4:36 PM EDT 11/09/2024 4:38 PM EDT Nathaly Nowak MD LAB POINT OF CARE TE ST DOCKED DEVICE UNSOLICITED RESULTS Final Result Performing Organization Address City/[facility] Co de Phone Number [facility] [address] [place] [address] * PICC SINGLE LUMEN (SMARTFORM LINK) (11/09/2024 1:11 PM EDT) Narrative Estefani Barraza RN - 11/09/2024 1:11 PM EDT Estefani Barraza RN 11/09/2024 1:12 PM Insert PICC line Date/Time: 11/09/2024 1:11 PM Performed by: Estefani Barraza RN Authorized by: Nathaly Nowak MD [place] Protocol: Verbal consent obtained?: Yes Written consent [...] selection rationale: Left pacemaker Catheter Lot #: [id number] Catheter spline rolling machine job setter: KO-SU Catheter placed: Single lumen Catheter size: 4 Fr Catheter trimmed length: 42 Catheter threaded length: 42 Vein placed in: SVC Catheter cm indwellin Catheter cm outside: 0 Placement confirmed by: Mambu 3CG technology Pre-procedure: Landmarks identified Ultrasound guidance: [...] - 99 mg/dL 11/09/2024 11:51 AM EDT [facility] Comment:Accuracy of a glucos e result [...] Comment 11/09/2024 11:51 AM EDT [facility] Chemical Equipment Repairer Kristian Greco 11/09/2024 11:51 AM EDT [facility] Device ID [id number] 11/09/2024 11:51 AM EDT [facility] Specimen Type POC Capillary 11/09/2024 11:51 AM EDT [facility] Blood Capillary blood specimen / Unknown 11/09/2024 11:50 AM EDT 11/09/2024 11:51 AM EDT Nathaly Nowak MD LAB POINT OF CARE TE ST DOCKED DEVICE UNSOLICITED RESULTS Final Result Performing Organization Address City/[facility]/ZIP Co de Phone Number [facility] [address] [place] [address] * (ABNORMAL) POCT glucose meter (11/09/2024 8:14 [...] 11/09/2024 8:15 AM EDT [facility] Chemical Equipment Repairer Kristian Greco 11/09/2024 8:15 AM EDT [facility] Device ID [id number] 11/09/2024 8:15 AM EDT [facility] Specimen Type POC Capillary 11/09/2024 8:15 AM EDT [facility] Blood Capillary blood specimen / Unknown 11/09/2024 8:14 AM EDT 11/09/2024 8:15 AM EDT Nathaly Nowak MD LAB POINT OF CARE TE ST DOCKED DEVICE UNSOLICITED RESULTS Final Result Performing Organization Address City/[facility]/ZIP Co de Phone Number [facility] [address] [place] [address] * (ABNORMAL) CBC and Differential (11/09/2024 4:15 AM EDT) WBC Count 10.27 3.70 - 10.30 10*3/uL LAB HEMATOLOGY METHOD 11/09/2024 4:26 AM EDT [facility] RBC Count 3.14(L) 4.60 - 6.10 10*6/uL LAB HEMATOLOGY METHOD 11/09/2024 4:26 AM EDT [facility] HGB 9.2(L) 13.7 - 17.5 g/dL LAB HEMATOLOGY METHOD 11/09/2024 4:26 AM EDT [facility] HCT 28.3(L) 40.0 - 51.0 % LAB HEMATOLOGY METHOD 11/09/2024 4:26 AM EDT [facility] Platelet Count 468(H) 155 - 369 10*3/uL LAB HEMATOLOGY METHOD 11/09/2024 4:26 AM EDT [facility] MCV 90 79 - 98 fL LAB HEMATOLOGY METHOD 11/09/2024 4:26 AM EDT [facility] MCH 29.3 26.0 - 32.0 pg LAB HEMATOLOGY METHOD 11/09/2024 4:26 AM EDT [facility] MCHC 32.5 30.7 - 35.5 g/dL LAB HEMATOLOGY METHOD 11/09/2024 4:26 AM EDT [facility] RDW 13.1 11.5 - 14.5 % LAB HEMATOLOGY METHOD 11/09/2024 4:26 AM EDT [facility] MPV 8.7(L) 8.8 - 12.5 fL LAB HEMATOLOGY METHOD 11/09/2024 4:26 AM EDT [facility] nRBC 0.0 <=0.0 per 100 WBCs LAB HEMATOLOGY METHOD 11/09/2024 4:26 AM EDT [facility] Differential Type Automated LAB HEMATOLOGY METHOD 11/09/2024 4:26 AM EDT [facility] Neutrophils % 77 % LAB HEMATOLOGY METHOD 11/09/2024 4:26 AM EDT [facility] Lymphocytes % 13 % LAB HEMATOLOGY METHOD 11/09/2024 4:26 AM EDT [facility] Monocytes % 8 % LAB HEMATOLOGY METHOD 11/09/2024 4:26 AM EDT [facility] Eosinophils % 1 % LAB HEMATOLOGY METHOD 11/09/2024 4:26 AM EDT [facility] Basophils % 0 % LAB HEMATOLOGY METHOD 11/09/2024 4:26 AM EDT [facility] Immature Granulocytes % 1 % LAB HEMATOLOGY METHOD 11/09/2024 4:26 AM EDT [facility] Neutrophils Absolute 7.97(H) 1.60 - 6.10 10*3/uL LAB HEMATOLOGY METHOD 11/09/2024 4:26 AM EDT [facility] Lymphocytes Absolute 1.32 1.20 - 3.90 10*3/uL LAB HEMATOLOGY METHOD 11/09/2024 4:26 AM EDT [facility] Monocytes Absolute 0.83 0.30 - 0.90 10*3/uL LAB HEMATOLOGY METHOD 11/09/2024 4:26 AM EDT [facility] Eosinophils Absolute 0.07 0.00 - 0.50 10*3/uL LAB HEMATOLOGY METHOD 11/09/2024 4:26 AM EDT [facility] Basophils Absolute 0.03 0.00 - 0.10 10*3/uL LAB HEMATOLOGY METHOD 11/09/2024 4:26 AM EDT [facility] Immature Granulocytes Absolute 0.05 0.00 - 0.06 10*3/uL LAB HEMATOLOGY METHOD 11/09/2024 4:26 AM EDT [facility] Blood Venous blood specimen / Unknown Venipuncture / Unknown 11/09/2024 4:15 AM EDT 11/09/2024 4:18 AM EDT Narrative [facility] - 11/09/2024 4:26 AM EDT Therapeutic decision making should be based on absolute values, rather than percentages. us Nathaly Nowak MD LAB BLOOD ORDERABLES Final Resu lt [facility] [address] [place] [address] * (ABNORMAL) Comprehensive Metabolic Panel, Plasma (11/09/2024 4:15 AM EDT) Glucose, Plasma 171(H) 74 - 99 mg/dL 11/09/2024 4:47 AM EDT [facility] BUN, Plasma 9 8 - 23 mg/dL 11/09/2024 4:47 AM EDT [facility] Creatinine, Plasma 0.67(L) 0.70 - 1.20 mg/dL 11/09/2024 4:47 AM EDT [facility] BUN/Creatinine Ratio 13 11/09/2024 4:47 AM EDT [facility] Sodium, Plasma 134(L) 136 - 145 mmol/L 11/09/2024 4:47 AM EDT [facility] Potassium, Plasma 4.1 3.6 - 4.9 mmol/L 11/09/2024 4:47 AM EDT [facility] Chloride, Plasma 104 97 - 107 mmol/L 11/09/2024 4:47 AM EDT [facility] CO2, Plasma 21(L) 22 - 29 mmol/L 11/09/2024 4:47 AM EDT [facility] Anion Gap 9 6 - 16 mmol/L 11/09/2024 4:47 AM EDT [facility] Total Calcium, Plasma 8.4(L) 8.9 - 10.2 mg/dL 11/09/2024 4:47 AM EDT [facility] Total Protein 5.8(L) 6.3 - 7.9 g/dL 11/09/2024 4:47 AM EDT [facility] Albumin, Plasma 3.2(L) 3.5 - 5.2 g/dL 11/09/2024 4:47 AM EDT [facility] AST, Plasma 18 10 - 50 U/L 11/09/2024 4:47 AM EDT [facility] ALT, Plasma 17 10 - 50 U/L 11/09/2024 4:47 AM EDT [facility] Alkaline Phosphatase, Plasma 110 40 - 115 U/L 11/09/2024 4:47 AM EDT [facility] Total Bilirubin, Plasma <0.2(L) 0.2 - 1.1 mg/dL 11/09/2024 4:47 AM EDT [facility] eGFRcr 103.6 mL/min/1.7 3m*2 11/09/2024 4:47 AM EDT [facility] Comment:Reported eGFRcr in m L/min/1.73m2 is based the CKD-EPI 2020 equation that does not use a race coefficient. Blood Venous blood specimen / Unknown Venipuncture / Unknown 11/09/2024 4:15 AM EDT 11/09/2024 4:18 AM EDT Nathaly Nowak MD LAB BLOOD ORDERABLES Final Resu lt Performing Organization Address City/[facility]/ZIP Co de Phone Number [facility] [address] [place] [address] * (ABNORMAL) POCT glucose meter (11/09/2024 3:30 [...] Comment 11/09/2024 3:31 AM EDT [facility] Chemical Equipment Repairer ID Maximiliano Hansen II 11/09/2024 3:31 AM EDT [facility] Device ID [id number] 11/09/2024 3:31 AM EDT [facility] Specimen Type POC Capillary 11/09/2024 3:31 AM EDT [facility] Blood Capillary blood specimen / Unknown 11/09/2024 3:30 AM EDT 11/09/2024 3:31 AM EDT us Nathaly Nowak MD LAB POINT OF CARE TE ST DOCKED DEVICE UNSOLICITED RESULTS Final Result [facility] [address] [place] [address] * (ABNORMAL) POCT glucose meter (11/08/2024 7:21 [...] 11/08/2024 7:22 PM EDT [facility] Chemical Equipment Repairer ID Maximiliano Hansen II 11/08/2024 7:22 PM EDT [facility] Device ID [id number] 11/08/2024 7:22 PM EDT [facility] Specimen Type POC Capillary 11/08/2024 7:22 PM EDT [facility] Blood Capillary blood specimen / Unknown 11/08/2024 7:21 PM EDT 11/08/2024 7:22 PM EDT us Nathaly Nowak MD LAB POINT OF CARE TE ST DOCKED DEVICE UNSOLICITED RESULTS Final Result Performing Organization Address City/State/[facility] Co de Phone Number [facility] [address] [place] [address] * (ABNORMAL) POCT glucose meter (11/08/2024 5:12 [...] 11/08/2024 5:14 PM EDT [facility] Chemical Equipment Repairer ID Estefani Sheth 11/08/2024 5:14 PM EDT [facility] Device ID [id number] 11/08/2024 5:14 PM EDT [facility] Specimen Type POC Capillary 11/08/2024 5:14 PM EDT [facility] Blood Capillary blood specimen / Unknown 11/08/2024 5:12 PM EDT 11/08/2024 5:14 PM EDT us Nathaly Nowak MD LAB POINT OF CARE TE ST DOCKED DEVICE UNSOLICITED RESULTS Final Result Performing Organization Address City/[facility]/ZIP Co de Phone Number [facility] [address] [place] [address] * (ABNORMAL) POCT glucose meter (11/08/2024 12:03 PM EDT) Pathologist [facility] POCT Glucose 191(H) 74 - 99 mg/dL [...] for testing. Comment 11/08/2024 12:05 PM EDT [facility] Chemical Equipment Repairer ID Estefani Sheth 11/08/2024 12:05 PM EDT [facility] Device ID [id number] 11/08/2024 12:05 PM EDT [facility] Specimen Type POC Capillary 11/08/2024 12:05 PM EDT [facility] Blood Capillary blood specimen / Unknown 11/08/2024 12:03 PM EDT 11/08/2024 12:05 PM EDT Nathaly Nowak MD LAB POINT OF CARE TE ST DOCKED DEVICE UNSOLICITED RESULTS Final Result Performing Organization Address City/[facility]/ZIP Co de Phone Number [facility] [address] [place] [address] * Vancomycin, Peak, Plasma Please draw ~2 hours after 11/08 0600 dose of vancomycin finishes infusing.Consider obtaining level via peripheral stick. If peripheral stick is not feasible, please ensure that line is flushed well prior to drawing level.... (11/08/2024 9:24 AM EDT) Pathologist [facility] Vancomycin, Peak, Plasma 29.1 20.0 - 40.0 ug/mL 11/08/2024 10:31 AM EDT [facility] Blood Venous blood specimen / Unknown Venipuncture / Unknown 11/08/2024 9:24 AM EDT 11/08/2024 9:47 AM EDT Narrative [facility] - 11/08/2024 10:31 AM EDT Therapeutic Peak level: 20-40ug/mL Supra-therapeutic Peak level: >40 ug/mL us Nathaly Nowak MD LAB BLOOD ORDERABLES Final Resu lt Performing Organization Address City/[facility]/ZIP Co de Phone Number [facility] [address] [place] [address] * (ABNORMAL) POCT glucose meter (11/08/2024 8:00 [...] 11/08/2024 8:01 AM EDT [facility] Chemical Equipment Repairer ID Estefani Sheth 11/08/2024 8:01 AM EDT [facility] Device ID [id number] 11/08/2024 8:01 AM EDT [facility] Specimen Type POC Capillary 11/08/2024 8:01 AM EDT [facility] Blood Capillary blood specimen / Unknown 11/08/2024 8:00 AM EDT 11/08/2024 8:01 AM EDT us Nathaly Nowak MD LAB POINT OF CARE TE ST DOCKED DEVICE UNSOLICITED RESULTS Final Result Performing Organization Address City/[facility]/ZIP Co de Phone Number [facility] [address] [place] [address] * (ABNORMAL) CBC and Differential (11/08/2024 4:39 AM EDT) WBC Count 9.18 3.70 - 10.30 10*3/uL LAB HEMATOLOGY METHOD 11/08/2024 4:58 AM EDT [facility] RBC Count 3.11(L) 4.60 - 6.10 10*6/uL LAB HEMATOLOGY METHOD 11/08/2024 4:58 AM EDT [facility] HGB 9.2(L) 13.7 - 17.5 g/dL LAB HEMATOLOGY METHOD 11/08/2024 4:58 AM EDT [facility] HCT 28.9(L) 40.0 - 51.0 % LAB HEMATOLOGY METHOD 11/08/2024 4:58 AM EDT [facility] Platelet Count 485(H) 155 - 369 10*3/uL LAB HEMATOLOGY METHOD 11/08/2024 4:58 AM EDT [facility] MCV 93 79 - 98 fL LAB HEMATOLOGY METHOD 11/08/2024 4:58 AM EDT [facility] MCH 29.6 26.0 - 32.0 pg LAB HEMATOLOGY METHOD 11/08/2024 4:58 AM EDT [facility] MCHC 31.8 30.7 - 35.5 g/dL LAB HEMATOLOGY METHOD 11/08/2024 4:58 AM EDT [facility] RDW 13.0 11.5 - 14.5 % LAB HEMATOLOGY METHOD 11/08/2024 4:58 AM EDT [facility] MPV 8.8 8.8 - 12.5 fL LAB HEMATOLOGY METHOD 11/08/2024 4:58 AM EDT [facility] nRBC 0.0 <=0.0 per 100 WBCs LAB HEMATOLOGY METHOD 11/08/2024 4:58 AM EDT [facility] Differential Type Automated LAB HEMATOLOGY METHOD 11/08/2024 4:58 AM EDT [facility] Neutrophils % 69 % LAB HEMATOLOGY METHOD 11/08/2024 4:58 AM EDT [facility] Lymphocytes % 17 % LAB HEMATOLOGY METHOD 11/08/2024 4:58 AM EDT [facility] Monocytes % 10 % LAB HEMATOLOGY METHOD 11/08/2024 4:58 AM EDT [facility] Eosinophils % 2 % LAB HEMATOLOGY METHOD 11/08/2024 4:58 AM EDT [facility] Basophils % 1 % LAB HEMATOLOGY METHOD 11/08/2024 4:58 AM EDT [facility] Immature Granulocytes % 1 % LAB HEMATOLOGY METHOD 11/08/2024 4:58 AM EDT [facility] Neutrophils Absolute 6.40(H) 1.60 - 6.10 10*3/uL LAB HEMATOLOGY METHOD 11/08/2024 4:58 AM EDT [facility] Lymphocytes Absolute 1.59 1.20 - 3.90 10*3/uL LAB HEMATOLOGY METHOD 11/08/2024 4:58 AM EDT [facility] Monocytes Absolute 0.87 0.30 - 0.90 10*3/uL LAB HEMATOLOGY METHOD 11/08/2024 4:58 AM EDT [facility] Eosinophils Absolute 0.22 0.00 - 0.50 10*3/uL LAB HEMATOLOGY METHOD 11/08/2024 4:58 AM EDT [facility] Basophils Absolute 0.05 0.00 - 0.10 10*3/uL LAB HEMATOLOGY METHOD 11/08/2024 4:58 AM EDT [facility] Immature Granulocytes Absolute 0.05 0.00 - 0.06 10*3/uL LAB HEMATOLOGY METHOD 11/08/2024 4:58 AM EDT [facility] Blood Venous blood specimen / Unknown Venipuncture / Unknown 11/08/2024 4:39 AM EDT 11/08/2024 4:49 AM EDT Narrative [facility] - 11/08/2024 4:58 AM EDT Therapeutic decision making should be based on absolute values, rather than percentages. us Nathaly Nowak MD LAB BLOOD ORDERABLES Final Resu lt [facility] [address] [place] [address] * (ABNORMAL) Comprehensive Metabolic Panel, Plasma (11/08/2024 4:39 AM EDT) Glucose, Plasma 255(H) 74 - 99 mg/dL 11/08/2024 5:20 AM EDT [facility] BUN, Plasma 10 8 - 23 mg/dL 11/08/2024 5:20 AM EDT [facility] Creatinine, Plasma 0.75 0.70 - 1.20 mg/dL 11/08/2024 5:20 AM EDT [facility] BUN/Creatinine Ratio 13 11/08/2024 5:20 AM EDT [facility] Sodium, Plasma 133(L) 136 - 145 mmol/L 11/08/2024 5:20 AM EDT [facility] Potassium, Plasma 5.2(H) 3.6 - 4.9 mmol/L 11/08/2024 5:20 AM EDT [facility] Chloride, Plasma 105 97 - 107 mmol/L 11/08/2024 5:20 AM EDT [facility] CO2, Plasma 20(L) 22 - 29 mmol/L 11/08/2024 5:20 AM EDT [facility] Anion Gap 8 6 - 16 mmol/L 11/08/2024 5:20 AM EDT [facility] Total Calcium, Plasma 7.7(L) 8.9 - 10.2 mg/dL 11/08/2024 5:20 AM EDT [facility] Total Protein 5.6(L) 6.3 - 7.9 g/dL 11/08/2024 5:20 AM EDT [facility] Albumin, Plasma 2.8(L) 3.5 - 5.2 g/dL 11/08/2024 5:20 AM EDT [facility] AST, Plasma 20 10 - 50 U/L 11/08/2024 5:20 AM EDT [facility] Comment:Hemolyzed, result ma y be falsely increased. ALT, Plasma 14 10 - 50 U/L 11/08/2024 5:20 AM EDT [facility] Alkaline Phosphatase, Plasma 119(H) 40 - 115 U/L 11/08/2024 5:20 AM EDT [facility] Total Bilirubin, Plasma <0.2(L) 0.2 - 1.1 mg/dL 11/08/2024 5:20 AM EDT [facility] eGFRcr 100.1 mL/min/1.7 3m*2 11/08/2024 5:20 AM EDT [facility] Comment:Reported eGFRcr in m L/min/1.73m2 is based the CKD-EPI 2020 equation that does not use a race coefficient. Blood Venous blood specimen / Unknown Venipuncture / Unknown 11/08/2024 4:39 AM EDT 11/08/2024 4:43 AM EDT Nathaly Nowak MD LAB BLOOD ORDERABLES Final Resu lt Performing Organization Address [facility] de Phone Number [facility] [address] [place] [id number] * Vancomycin, Trough, Plasma Please draw ~30 minutes prior to dose due at 0600 on 11/08. Please do NOThold dose awaiting level to return. Consider obtaining level via peripheral stick. If peripheral stick is not feasible, please ensure that line is... (11/08/2024 4:39 AM EDT) [facility] Vancomycin, Trough, Plasma 18.7 10.0 - 20.0 ug/mL 11/08/2024 5:22 AM EDT [facility] Blood Venous blood specimen / Unknown Venipuncture / Unknown 11/08/2024 4:39 AM EDT 11/08/2024 4:43 AM EDT Narrative [facility] - 11/08/2024 5:22 AM EDT Therapeutic Trough level: 10-20ug/mL Supra-therapeutic Trough level: >20 ug/mL Nathaly Nowak MD LAB BLOOD ORDERABLES Final Resu Performing Organization Address [facility] Phone Number [facility] [address] [place] [phone] * (ABNORMAL) POCT glucose meter (11/07/2024 7:26 PM EDT) [facility] POCT Glucose 172(H) 74 - 99 mg/dL 11/07/2024 7:28 PM EDT [facility] Comment:Accuracy of a glucos e [...] 7:28 PM EDT [facility] Chemical Equipment Repairer ID Hansen Maximiliano WALTERS 11/07/2024 7:28 PM EDT [facility] Device ID [id number] 11/07/2024 7:28 PM EDT [facility] Specimen Type POC Capillary 11/07/2024 7:28 PM EDT [facility] Blood Capillary blood specimen / Unknown 11/07/2024 7:26 PM EDT 11/07/2024 7:28 PM EDT Nathaly Nowak MD LAB POINT OF CARE TE ST DOCKED DEVICE UNSOLICITED RESULTS Final Result Performing Organization Address City/[facility]/ZIP Co de Phone Number [facility] [address] [place] [address] * (ABNORMAL) POCT glucose meter (11/07/2024 5:51 [...] 11/07/2024 5:52 PM EDT [facility] Chemical Equipment Repairer ID Brigitte Castellon 11/07/2024 5:52 PM EDT [facility] Device ID [id number] 11/07/2024 5:52 PM EDT [facility] Specimen Type POC Capillary 11/07/2024 5:52 PM EDT [facility] Blood Capillary blood specimen / Unknown 11/07/2024 5:51 PM EDT 11/07/2024 5:52 PM EDT Nathaly Nowak MD LAB POINT OF CARE TE ST DOCKED DEVICE UNSOLICITED RESULTS Final Result Performing Organization Address City/[facility]/ZIP Co de Phone Number [facility] [address] [place] [address] * (ABNORMAL) POCT glucose meter (11/07/2024 4:47 [...] 11/07/2024 4:48 PM EDT [facility] Chemical Equipment Repairer ID Estefani Sheth 11/07/2024 4:48 PM EDT [facility] Device ID [id number] 11/07/2024 4:48 PM EDT [facility] Specimen Type POC Capillary 11/07/2024 4:48 PM EDT [facility] Blood Capillary blood specimen / Unknown 11/07/2024 4:47 PM EDT 11/07/2024 4:48 PM EDT Nathaly Nowak MD LAB POINT OF CARE TE ST DOCKED DEVICE UNSOLICITED RESULTS Final Result Performing Organization Address City/State/[facility] [facility] Co de Phone Number [facility] [address] [place] [address] * (ABNORMAL) POCT glucose meter (11/07/2024 12:22 PM EDT) [facility] POCT Glucose 172(H) 74 - [...] 12:24 PM EDT [facility] Chemical Equipment Repairer ID Estefani Sheth 11/07/2024 12:24 PM EDT [facility] Device ID [id number] 11/07/2024 12:24 PM EDT [facility] Specimen Type POC Capillary 11/07/2024 12:24 PM EDT [facility] Blood Capillary blood specimen / Unknown 11/07/2024 12:22 PM EDT 11/07/2024 12:24 PM EDT us Nathaly Nowak MD LAB POINT OF CARE TE ST DOCKED DEVICE UNSOLICITED RESULTS Final Result [facility] [address] [place] [address] * (ABNORMAL) CBC and Differential (11/07/2024 11:37 AM EDT) WBC Count 9.96 3.70 - 10.30 10*3/uL LAB HEMATOLOGY METHOD 11/07/2024 12:33 PM EDT [facility] RBC Count 2.81(L) 4.60 - 6.10 10*6/uL LAB HEMATOLOGY METHOD 11/07/2024 12:33 PM EDT [facility] HGB 8.5(L) 13.7 - 17.5 g/dL LAB HEMATOLOGY METHOD 11/07/2024 12:33 PM EDT [facility] HCT 26.0(L) 40.0 - 51.0 % LAB HEMATOLOGY METHOD 11/07/2024 12:33 PM EDT [facility] Platelet Count 524(H) 155 - 369 10*3/uL LAB HEMATOLOGY METHOD 11/07/2024 12:33 PM EDT [facility] MCV 93 79 - 98 fL LAB HEMATOLOGY METHOD 11/07/2024 12:33 PM EDT [facility] MCH 30.2 26.0 - 32.0 pg LAB HEMATOLOGY METHOD 11/07/2024 12:33 PM EDT [facility] MCHC 32.7 30.7 - 35.5 g/dL LAB HEMATOLOGY METHOD 11/07/2024 12:33 PM EDT [facility] RDW 13.1 11.5 - 14.5 % LAB HEMATOLOGY METHOD 11/07/2024 12:33 PM EDT [facility] MPV 9.0 8.8 - 12.5 fL LAB HEMATOLOGY METHOD 11/07/2024 12:33 PM EDT [facility] nRBC 0.0 <=0.0 per 100 WBCs LAB HEMATOLOGY METHOD 11/07/2024 12:33 PM EDT [facility] Differential Type Automated LAB HEMATOLOGY METHOD 11/07/2024 12:33 PM EDT [facility] Neutrophils % 72 % LAB HEMATOLOGY METHOD 11/07/2024 12:33 PM EDT [facility] Lymphocytes % 17 % LAB HEMATOLOGY METHOD 11/07/2024 12:33 PM EDT [facility] Monocytes % 9 % LAB HEMATOLOGY METHOD 11/07/2024 12:33 PM EDT [facility] Eosinophils % 1 % LAB HEMATOLOGY METHOD 11/07/2024 12:33 PM EDT [facility] Basophils % 1 % LAB HEMATOLOGY METHOD 11/07/2024 12:33 PM EDT [facility] Immature Granulocytes % 0 % LAB HEMATOLOGY METHOD 11/07/2024 12:33 PM EDT [facility] Neutrophils Absolute 7.19(H) 1.60 - 6.10 10*3/uL LAB HEMATOLOGY METHOD 11/07/2024 12:33 PM EDT [facility] Lymphocytes Absolute 1.66 1.20 - 3.90 10*3/uL LAB HEMATOLOGY METHOD 11/07/2024 12:33 PM EDT [facility] Monocytes Absolute 0.88 0.30 - 0.90 10*3/uL LAB HEMATOLOGY METHOD 11/07/2024 12:33 PM EDT [facility] Eosinophils Absolute 0.14 0.00 - 0.50 10*3/uL LAB HEMATOLOGY METHOD 11/07/2024 12:33 PM EDT [facility] Basophils Absolute 0.05 0.00 - 0.10 10*3/uL LAB HEMATOLOGY METHOD 11/07/2024 12:33 PM EDT [facility] Immature Granulocytes Absolute 0.04 0.00 - 0.06 10*3/uL LAB HEMATOLOGY METHOD 11/07/2024 12:33 PM EDT [facility] Blood Venous blood specimen / Unknown Venipuncture / Unknown 11/07/2024 11:37 AM EDT 11/07/2024 12:24 PM EDT [facility] - 11/07/2024 12:33 PM EDT Therapeutic decision making should be based on absolute values, rather than percentages. us Nathaly Nowak MD LAB BLOOD ORDERABLES Final Resu lt [facility] [address] [place] [address] * (ABNORMAL) Comprehensive Metabolic Panel, Plasma (11/07/2024 11:37 AM EDT) Glucose, Plasma 173(H) 74 - 99 mg/dL 11/07/2024 1:31 PM EDT [facility] BUN, Plasma 13 8 - 23 mg/dL 11/07/2024 1:31 PM EDT [facility] Creatinine, Plasma 0.92 0.70 - 1.20 mg/dL 11/07/2024 1:31 PM EDT [facility] BUN/Creatinine Ratio 11/07/2024 1:31 PM EDT [facility] Sodium, Plasma 136 136 - 145 mmol/L 11/07/2024 1:31 PM EDT [facility] Potassium, Plasma 4.0 3.6 - 4.9 mmol/L 11/07/2024 1:31 PM EDT [facility] Chloride, Plasma 104 97 - 107 mmol/L 11/07/2024 1:31 PM EDT [facility] CO2, Plasma 23 22 - 29 mmol/L 11/07/2024 1:31 PM EDT [facility] Anion Gap 9 6 - 16 mmol/L 11/07/2024 1:31 PM EDT [facility] Total Calcium, Plasma 7.8(L) 8.9 - 10.2 mg/dL 11/07/2024 1:31 PM EDT [facility] Total Protein 5.7(L) 6.3 - 7.9 g/dL 11/07/2024 1:31 PM EDT [facility] Albumin, Plasma 3.0(L) 3.5 - 5.2 g/dL 11/07/2024 1:31 PM EDT [facility] AST, Plasma 15 10 - 50 U/L 11/07/2024 1:31 PM EDT [facility] ALT, Plasma 16 10 - 50 U/L 11/07/2024 1:31 PM EDT [facility] Alkaline Phosphatase, Plasma 119(H) 40 - 115 U/L 11/07/2024 1:31 PM EDT [facility] Total Bilirubin, Plasma <0.2(L) 0.2 - 1.1 mg/dL 11/07/2024 1:31 PM EDT [facility] eGFRcr 92.3 mL/min/1.7 3m*2 11/07/2024 1:31 PM EDT [facility] Comment:Reported eGFRcr in m L/min/1.73m2 is based the CKD-EPI 2020 equation that does not use a race coefficient. Blood Venous blood specimen / Unknown Venipuncture / Unknown 11/07/2024 11:37 AM EDT 11/07/2024 12:23 PM EDT Nathaly Nowak MD LAB BLOOD ORDERABLES Final Resu lt Performing Organization Address City/[facility]/ZIP Co de Phone Number [facility] [address] [place] [address] * Type and Screen (11/07/2024 11:37 AM EDT) Pathologist [facility] ABO/Rh A Negative 11/06/2024 8:56 AM EDT BLOOD BANK Antibody Screen Negative 11/06/2024 8:56 AM EDT BLO[facility] BANK Specimen Expiration 11/10/2024 23:59 11/06/2024 8:56 AM EDT BLO[facility]ANK Blood Venous blood specimen / Unknown Venipuncture / Unknown 11/07/2024 11:37 AM EDT 11/07/2024 11:50 AM EDT Sabrina DOSHI LAB BLOOD BANK TEST ORDERABLES F inal Result Performing Organization Address [facility] de Phone Number BLOOD BANK [address] [place] [address], * (ABNORMAL) POCT glucose meter (11/07/2024 10:34 AM EDT) Pathologist [facility] POCT Glucose 199(H) 74 - 99 mg/dL 11/07/2024 10:36 AM EDT [employer] [facility] Comment:Accuracy of a glucos e [...] 11/07/2024 10:36 AM EDT [facility] Chemical Equipment Repairer ID Joy Iraheta 11/07/2024 10:36 AM EDT [facility] Device ID [id number] 11/07/2024 10:36 AM EDT [facility] Specimen Type POC Capillary 11/07/2024 10:36 AM EDT [facility] Blood Capillary blood specimen / Unknown 11/07/2024 10:34 AM EDT 11/07/2024 10:36 AM EDT Nathaly Nowak MD LAB POINT OF CARE TE ST DOCKED DEVICE UNSOLICITED RESULTS Final Result Performing Organization Address City/[facility] Co de Phone Number [facility] [address] [place] [address] * (ABNORMAL) POCT glucose meter (11/07/2024 9:34 AM EDT) [facility] POCT Glucose 208(H) 74 - [...] 11/07/2024 9:36 AM EDT [facility] Chemical Equipment Repairer ID Brigitte Castellon 11/07/2024 9:36 AM EDT [facility] Device ID [id number] 11/07/2024 9:36 AM EDT [facility] Specimen Type POC Capillary 11/07/2024 9:36 AM EDT [facility] Blood Capillary blood specimen / Unknown 11/07/2024 9:34 AM EDT 11/07/2024 9:36 AM EDT Nathaly Nowak MD LAB POINT OF CARE TE ST DOCKED DEVICE UNSOLICITED RESULTS Final Result [facility] [address] [place] [address] * (ABNORMAL) POCT glucose meter (11/07/2024 8:20 AM EDT) [facility] POCT Glucose 137(H) 74 - [...] 11/07/2024 8:22 AM EDT [facility] Chemical Equipment Repairer ID Estefani Sheth Chris 11/07/2024 8:22 AM EDT [facility] Device ID [id number] 11/07/2024 8:22 AM EDT [facility] Specimen Type POC Capillary 11/07/2024 8:22 AM EDT [facility] Blood Capillary blood specimen / Unknown 11/07/2024 8:20 AM EDT 11/07/2024 8:22 AM EDT Nathaly Nowak MD LAB POINT OF CARE TE ST DOCKED DEVICE UNSOLICITED RESULTS Final Result [facility] [address] [place] [address] * (ABNORMAL) POCT glucose meter (11/07/2024 7:21 AM EDT) [facility] POCT Glucose 151(H) 74 - [...] 11/07/2024 7:22 AM EDT [facility] Chemical Equipment Repairer ID Brigitte Castellon 11/07/2024 7:22 AM EDT [facility] Device ID [id number] 11/07/2024 7:22 AM EDT [facility] Specimen Type POC Capillary 11/07/2024 7:22 AM EDT [facility] Blood Capillary blood specimen / Unknown 11/07/2024 7:21 AM EDT 11/07/2024 7:22 AM EDT Nathaly Nowak MD LAB POINT OF CARE TE ST DOCKED DEVICE UNSOLICITED RESULTS Final Result Performing Organization Address City/[facility] Co de Phone Number [facility] [address] [place] [address] * (ABNORMAL) POCT glucose meter (11/07/2024 6:25 [...] 11/07/2024 6:27 AM EDT [facility] Chemical Equipment Repairer ID Nelda Gerber 11/08/19 6:27 AM EDT [facility] Device ID [id number] 11/07/2024 6:27 AM EDT [facility] Specimen Type POC Capillary 11/07/2024 6:27 AM EDT [facility] Blood Capillary blood specimen / Unknown 11/07/2024 6:25 AM EDT 11/07/2024 6:27 AM EDT us Nathaly Nowak MD LAB POINT OF CARE TE ST DOCKED DEVICE UNSOLICITED RESULTS Final Result Performing Organization Address City/[facility] Co de Phone Number [facility] [address] [place] [address] * (ABNORMAL) POCT glucose meter (11/07/2024 5:03 [...] 11/07/2024 5:08 AM EDT [facility] Chemical Equipment Repairer ID Nelda Gerber 11/08/19 5:08 AM EDT [facility] Device ID [id number] 11/07/2024 5:08 AM EDT [facility] Specimen Type POC Capillary 11/07/2024 5:08 AM EDT [facility] Blood Capillary blood specimen / Unknown 11/07/2024 5:03 AM EDT 11/07/2024 5:08 AM EDT Nathaly Nowak MD LAB POINT OF CARE TE ST DOCKED DEVICE UNSOLICITED RESULTS Final Result [facility] [address] [place] [address] * (ABNORMAL) POCT glucose meter (11/07/2024 4:16 AM EDT) [facility] POCT Glucose 142(H) 74 - [...] 11/07/2024 4:18 AM EDT [facility] Chemical Equipment Repairer ID Nelda Gerber 11/08/19 4:18 AM EDT [facility] Device ID [id number] 11/07/2024 4:18 AM EDT [facility] Specimen Type POC Capillary 11/07/2024 4:18 AM EDT [facility] Blood Capillary blood specimen / Unknown 11/07/2024 4:16 AM EDT 11/07/2024 4:18 AM EDT Nathaly Nowak MD LAB POINT OF CARE TE ST DOCKED DEVICE UNSOLICITED RESULTS Final Result Performing Organization Address [facility] de Phone Number [facility] [address] [place] [address] * (ABNORMAL) POCT glucose meter (11/07/2024 3:21 AM EDT) Pathologist [facility] POCT Glucose 141(H) 74 - 99 mg/dL [...] for testing. Comment 11/07/2024 3:23 AM EDT [facility] Chemical Equipment Repairer ID Nelda Gerber 11/08/19 3:23 AM EDT [facility] Device ID [id number] 11/07/2024 3:23 AM EDT [facility] Specimen Type POC Capillary 11/07/2024 3:23 AM EDT [facility] Blood Capillary blood specimen / Unknown 11/07/2024 3:21 AM EDT 11/07/2024 3:23 AM EDT us Nathaly Nowak MD LAB POINT OF CARE TE ST DOCKED DEVICE UNSOLICITED RESULTS Final Result Performing Organization Address City/[facility] de Phone Number [facility] [address] [place] [address] * (ABNORMAL) POCT glucose meter (11/07/2024 2:10 [...] 11/07/2024 2:12 AM EDT [facility] Chemical Equipment Repairer ID Nelda Gerber 11/08/19 2:12 AM EDT [facility] Device ID [id number] 11/07/2024 2:12 AM EDT [facility] Specimen Type POC Capillary 11/07/2024 2:12 AM EDT [facility] Blood Capillary blood specimen / Unknown 11/07/2024 2:10 AM EDT 11/07/2024 2:12 AM EDT Nathaly Nowak MD LAB POINT OF CARE TE ST DOCKED DEVICE UNSOLICITED RESULTS Final Result Performing Organization Address [facility] de Phone Number [facility] [address] [place] [address] * (ABNORMAL) POCT glucose meter (11/07/2024 1:08 [...] 11/07/2024 1:10 AM EDT [facility] Chemical Equipment Repairer ID Nelda Gerber 11/08/19 1:10 AM EDT [facility] Device ID [id number] 11/07/2024 1:10 AM EDT [facility] Specimen Type POC Capillary 11/07/2024 1:10 AM EDT [facility] Blood Capillary blood specimen / Unknown 11/07/2024 1:08 AM EDT 11/07/2024 1:10 AM EDT us Nathaly Nowak MD LAB POINT OF CARE TE ST DOCKED DEVICE UNSOLICITED RESULTS Final Result Performing Organization Address [facility] Co de Phone Number [facility] [address] [place] [address] * (ABNORMAL) POCT glucose meter (11/07/2024 12:10 AM EDT) [facility] POCT Glucose 127(H) 74 - [...] 11/07/2024 12:13 AM EDT [facility] Chemical Equipment Repairer ID Nelda Gerber 11/08/19 12:13 AM EDT [facility] Device ID [id number] 11/07/2024 12:13 AM EDT [facility] Specimen Type POC Capillary 11/07/2024 12:13 AM EDT [facility] Blood Capillary blood specimen / Unknown 11/07/2024 12:10 AM EDT 11/07/2024 12:13 AM EDT Nathaly Nowak MD LAB POINT OF CARE TE ST DOCKED DEVICE UNSOLICITED RESULTS Final Result [facility] [address] [place] [address] * (ABNORMAL) POCT glucose meter (11/06/2024 11:14 PM EDT) [facility] POCT Glucose 71(L) 74 - [...] 11:16 PM EDT [facility] Chemical Equipment Repairer ID Nelda Gerber 11/07/19 11:16 PM EDT [facility] Device ID [id number] 11/06/2024 11:16 PM EDT [facility] Specimen Type POC Capillary 11/06/2024 11:16 PM EDT [facility] Blood Capillary blood specimen / Unknown 11/06/2024 11:14 PM EDT 11/06/2024 11:16 PM EDT Nathaly Nowak MD LAB POINT OF CARE TE ST DOCKED DEVICE UNSOLICITED RESULTS Final Result Performing Organization Address City/[facility]/ZIP Co de Phone Number [facility] [address] [place] [address] * (ABNORMAL) POCT glucose meter (11/06/2024 10:07 [...] 11/06/2024 10:09 PM EDT [facility] Chemical Equipment Repairer ID Nelda Gerber 11/07/19 10:09 PM EDT [facility] Device ID [id number] 11/06/2024 10:09 PM EDT [facility] Specimen Type POC Capillary 11/06/2024 10:09 PM EDT [facility] Blood Capillary blood specimen / Unknown 11/06/2024 10:07 PM EDT 11/06/2024 10:09 PM EDT Nathaly Nowak MD LAB POINT OF CARE TE ST DOCKED DEVICE UNSOLICITED RESULTS Final Result Performing Organization Address City/[facility]/ZIP Co de Phone Number [facility] [address] [place] [address] * (ABNORMAL) POCT glucose meter (11/06/2024 8:22 [...] 11/06/2024 8:25 PM EDT [facility] Chemical Equipment Repairer ID Nelda Gerber 11/07/19 8:25 PM EDT [facility] Device ID [id number] 11/06/2024 8:25 PM EDT [facility] Specimen Type POC Capillary 11/06/2024 8:25 PM EDT [facility] Blood Capillary blood specimen / Unknown 11/06/2024 8:22 PM EDT 11/06/2024 8:25 PM EDT us Nathaly Nowak MD LAB POINT OF CARE TE ST DOCKED DEVICE UNSOLICITED RESULTS Final Result Performing Organization Address City/State/[facility] Co de Phone Number [facility] [address] [place] [address] * (ABNORMAL) POCT glucose meter (11/06/2024 7:31 PM EDT) [facility] Signature POCT Glucose 359(H) 74 - [...] 11/06/2024 7:32 PM EDT [facility] Chemical Equipment Repairer ID Nelda Gerber 11/07/19 7:32 PM EDT [facility] Device ID [id number] 11/06/2024 7:32 PM EDT [facility] Specimen Type POC Capillary 11/06/2024 7:32 PM EDT [facility] Blood Capillary blood specimen / Unknown 11/06/2024 7:31 PM EDT 11/06/2024 7:32 PM EDT Nathaly Nowak MD LAB POINT OF CARE TE ST DOCKED DEVICE UNSOLICITED RESULTS Final Result Performing Organization Address City/[facility] Co de Phone Number [facility] [address] [place] [address] * (ABNORMAL) POCT glucose meter (11/06/2024 6:15 [...] for testing. Comment 11/06/2024 6:17 PM EDT [employer] [facility] Chemical Equipment Repairer ID Estefani Sheth 11/06/2024 6:17 PM EDT [employer] [facility] Device ID [id number] 11/06/2024 6:17 PM EDT [facility] Specimen Type POC Capillary 11/06/2024 6:17 PM EDT [facility] Blood Capillary blood specimen / Unknown 11/06/2024 6:15 PM EDT 11/06/2024 6:17 PM EDT Nathaly Nowak MD LAB POINT OF CARE TE ST DOCKED DEVICE UNSOLICITED RESULTS Final Result Performing Organization Address City/[facility] Co de Phone Number [facility] [address] [place] [address] * (ABNORMAL) POCT glucose meter (11/06/2024 4:57 [...] Comment 11/06/2024 4:58 PM EDT [facility] Chemical Equipment Repairer ID Estefani Sheth 11/06/2024 4:58 PM EDT [facility] Device ID [id number] 11/06/2024 4:58 PM EDT [facility] Specimen Type POC Capillary 11/06/2024 4:58 PM EDT [facility] Blood Capillary blood specimen / Unknown 11/06/2024 4:57 PM EDT 11/06/2024 4:58 PM EDT us Nathaly Nowak MD LAB POINT OF CARE TE ST DOCKED DEVICE UNSOLICITED RESULTS Final Result Performing Organization Address City/[facility]/ZIP Co de Phone Number [facility] [address] [place] [address] * (ABNORMAL) POCT glucose meter (11/06/2024 2:08 [...] 11/06/2024 2:09 PM EDT [facility] Chemical Equipment Repairer ID Brigitte Castellon 11/06/2024 2:09 PM EDT [facility] Device ID [id number] 11/06/2024 2:09 PM EDT [facility] Specimen Type POC Capillary 11/06/2024 2:09 PM EDT [facility] Blood Capillary blood specimen / Unknown 11/06/2024 2:08 PM EDT 11/06/2024 2:09 PM EDT us Nathaly Nowak MD LAB POINT OF CARE TE ST DOCKED DEVICE UNSOLICITED RESULTS Final Result Performing Organization Address City/[facility]/ZIP Co de Phone Number [facility] [address] [place] [address] * (ABNORMAL) POCT glucose meter (11/06/2024 12:27 [...] 11/06/2024 12:28 PM EDT [facility] Chemical Equipment Repairer ID Jacinta Galloway 11/06/2024 12:28 PM EDT [facility] Device ID [id number] 11/06/2024 12:28 PM EDT [facility] Specimen Type POC Capillary 11/06/2024 12:28 PM EDT [facility] Blood Capillary blood specimen / Unknown 11/06/2024 12:27 PM EDT 11/06/2024 12:28 PM EDT us Nathaly Nowak MD LAB POINT OF CARE TE ST DOCKED DEVICE UNSOLICITED RESULTS Final Result Performing Organization Address City/State/[facility] Co de Phone Number [facility] [address] [place] [address] * (ABNORMAL) Tissue Culture and Gram Stain (11/06/2024 11:34 AM EDT) [facility] Culture Moderate Growth 7:35 AM EDT [facility] Culture 2+ Enterobacter cloacae complex(A) ANGÉLICA 11/15/2024 7:35 AM EDT [facility] Comment: This isolate has been identified using the FDA Approved [employer] [place] System The organism value for this result has been updated. These results have been appended to the previously preliminary verified report. Edited result: Previously reported as Gram Negative Jesus on 11/07/2024 at 1434 EDT. Culture 2+ Streptococcus mitis/oralis group(A) ANGÉLICA 11/15/2024 7:35 AM EDT [facility] Comment: This isolate has been identified using the FDA Approved [employer] [place] System The organism value for this result has been updated. These results have been appended to the previously preliminary verified report. Culture 2+ Pasteurella stomatis(A) ANGÉLICA 11/15/2024 7:35 AM EDT [facility] Comment: This result was determined by [employer] tof mass spectrometry using the [employer] database and is for research use only. The organism value for this result has been updated. These results have been appended to the previously preliminary verified report. Gram Stain Result Few Gram negative rods(A) 11/15/2024 7:35 AM EDT [facility] Gram Stain Result Moderate Polymorphonuclear leukocytes(A) 11/15/2024 7:35 AM EDT [facility] Gram Stain Result Few Gram positive cocci in pairs(A) 11/15/2024 7:35 AM EDT [facility] Tissue Topography unknown / Unknown 11/06/2024 11:34 AM EDT 11/06/2024 12:18 PM EDT Comment:Pre-op diagnosis: Surgical wound infection [T81.49XA] Narrative [facility] - 11/15/2024 7:35 AM [...] GENERAL ORDE LAM Edited Result - Final [facility] [address] [place] [address] * (ABNORMAL) Anaerobic Culture (11/06/2024 11:34 AM EDT) Culture No anaerobes isolated 11/14/2024 1:25 PM EDT [facility] Culture Staphylococcus pseudintermedius( A) 11/14/2024 1:25 PM EDT [facility] Comment: This result was determined by [employer] tof mass spectrometry using the [employer] database and is for research use only. This is an appended report. These results have been appended to a previously final verified report. Tissue Topography unknown / Unknown 11/06/2024 11:34 AM EDT 11/06/2024 12:18 PM EDT Comment:Pre-op diagnosis: Surgical wound infection [T81.49XA] Narrative [facility] - 11/14/2024 1:25 PM [...] GENERAL ORDAna FRITZ Edited Result - Final [facility] [address] [place] [address] * (ABNORMAL) Routine Culture and Gram Stain (11/06/2024 11:29 AM EDT) Culture Moderate Growth 5:29 PM EDT [facility] Culture Enterobacter cloacae complex(A) 11/08/2024 5:29 PM EDT [facility] Comment: This isolate has been identified using the FDA Approved [employer] [place] System For susceptibility results refer to: - [id number] The organism value for this result has been updated. These results have been appended to the previously preliminary verified report. Gram Stain Result No polymorphonuclear leukocytes seen 11/08/2024 5:29 PM EDT [facility] Gram Stain Result No organisms seen 11/08/2024 5:29 PM EDT [facility] Swab Topography unknown / Unknown 11/06/2024 11:29 AM EDT 11/06/2024 12:19 PM EDT Comment:Pre-op diagnosis: Surgical wound infection [T81.49XA] Nathaly Nowak MD LAB MICROBIOLOGY - GENERAL ORDE [facility] Final Result Performing Organization Address [facility] Co de Phone Number [facility] [address] [place] [address] * Fungal Culture, Routine (11/06/2024 11:29 AM EDT) Culture No Fungal Growth at 1 Week 11/13/2024 8:29 AM EDT [facility] Swab Topography unknown / Unknown 11/06/2024 11:29 AM EDT 11/06/2024 12:19 PM EDT Comment:Pre-op diagnosis: Surgical wound infection [T81.49XA] Nathaly Nowak MD LAB MICROBIOLOGY - GENERAL ORDE RABLES Final Result Performing Organization Address City/[facility] Co de Phone Number [facility] [address] [place] [address] * (ABNORMAL) Anaerobic Culture (11/06/2024 11:29 AM EDT) Culture No anaerobes isolated 11/14/2024 1:25 PM EDT [facility] Culture Streptococcus mitis/oralis group(A) 11/14/2024 1:25 PM EDT [facility] Comment: This result was determined by [employer] tof mass spectrometry using the [employer] database and is for research use only. The organism value for this result has been updated. These results have been appended to the previously preliminary verified report. This is a corrected result. Previous organism was Mixed skin clifton on 11/10/2024 at 0718 EDT. Culture Staphylococcus pseudintermedius( A) 11/14/2024 1:25 PM EDT [facility] Comment: This isolate has been identified using the FDA Approved [employer] [place] System This is an appended report. These results have been appended to a previously final verified report. Swab Topography unknown / Unknown 11/06/2024 11:29 AM EDT 11/06/2024 12:19 PM EDT Comment:Pre-op diagnosis: Surgical wound infection [T81.49XA] Narrative [facility] [facility] - 11/14/2024 1:25 PM [...] GENERAL ATIYA FRITZ Edited Result - Final [facility] [address] [place] [address] * Routine Culture and Gram Stain (11/06/2024 11:28 AM EDT) Culture No growth at day 4 2024 11:24 AM EDT [facility] Gram Stain Result No organisms seen 11/10/2024 11:24 AM EDT [facility] Gram Stain Result No polymorphonuclear leukocytes seen 11/10/2024 11:24 AM EDT [facility] Swab Topography unknown / Unknown 11/06/2024 11:28 AM EDT 11/06/2024 12:20 PM EDT Comment:Pre-op diagnosis: Surgical wound infection [T81.49XA] us Nathaly Nowak MD LAB MICROBIOLOGY - GENERAL ORDE LAM Final Result Performing Organization Address City/[facility] Co de Phone Number [facility] [address] [place] [address] * Fungal Culture, Routine (11/06/2024 11:28 AM EDT) Culture No Fungal Growth at 1 Week 11/13/2024 8:29 AM EDT [facility] Swab Topography unknown / Unknown 11/06/2024 11:28 AM EDT 11/06/2024 12:20 PM EDT Comment:Pre-op diagnosis: Surgical wound infection [T81.49XA] us Nathaly Nowak MD LAB MICROBIOLOGY - GENERAL ORDE LAM Final Result Performing Organization Address City/[facility] Co de Phone Number [facility] [address] [place] [address] * Anaerobic Culture (11/06/2024 11:28 AM EDT) Culture No growth at day 4 11/13/2024 12:53 PM EDT [facility] Swab Topography unknown / Unknown 11/06/2024 11:28 AM EDT 11/06/2024 12:20 PM EDT Comment:Pre-op diagnosis: Surgical wound infection [T81.49XA] us Nathaly Nowak MD LAB MICROBIOLOGY - GENERAL ORDE RABONEIDA Final Result [facility] [address] [place] [address] * (ABNORMAL) POCT glucose meter (11/06/2024 10:16 AM EDT) [facility] POCT Glucose 194(H) 74 - [...] 11/06/2024 10:18 AM EDT [facility] Chemical Equipment Repairer ID Elias, Lacy 11/07/19 10:18 AM EDT HEALTH[facility]ARE LAB Device ID [id number] 11/06/2024 10:18 AM EDT [facility] Specimen Type POC Capillary 11/06/2024 10:18 AM EDT [facility] Blood Capillary blood specimen / Unknown 11/06/2024 10:16 AM EDT 11/06/2024 10:18 AM EDT Nathaly Nowak MD LAB POINT OF CARE TE ST DOCKED DEVICE UNSOLICITED RESULTS Final Result Performing Organization Address [facility] Co de Phone Number [facility] [address] [place] [address] * (ABNORMAL) POCT glucose meter (11/06/2024 5:58 AM EDT) [facility] POCT Glucose 182(H) 74 - [...] 11/06/2024 6:01 AM EDT [facility] Chemical Equipment Repairer ID Raj Laird 11/07/19 6:01 AM EDT HEALTH[facility]ARE LAB Device ID [id number] 11/06/2024 6:01 AM EDT [facility] Specimen Type POC Capillary 11/06/2024 6:01 AM EDT [facility] Blood Capillary blood specimen / Unknown 11/06/2024 5:58 AM EDT 11/06/2024 6:01 AM EDT Nathaly Nowak MD LAB POINT OF CARE TE ST DOCKED DEVICE UNSOLICITED RESULTS Final Result Performing Organization Address City/[facility] Co de Phone Number [facility] [address] [place] [address] * (ABNORMAL) POCT glucose meter (11/06/2024 5:36 [...] 11/06/2024 5:38 AM EDT [facility] Chemical Equipment Repairer ID Shahid Sanches 11/06/2024 5:38 AM EDT [facility]ALTH[facility]ARE LAB Device ID [id number] 11/06/2024 5:38 AM EDT [facility] Specimen Type POC Capillary 11/06/2024 5:38 AM EDT [facility] Blood Capillary blood specimen / Unknown 11/06/2024 5:36 AM EDT 11/06/2024 5:38 AM EDT us Nathaly Nowak MD LAB POINT OF CARE TE ST DOCKED DEVICE UNSOLICITED RESULTS Final Result Performing Organization Address City/[facility] Co de Phone Number [facility] [address] [place] [address] * (ABNORMAL) Hemoglobin A1c (11/06/2024 1:07 AM EDT) Hemoglobin A1c 7.6(H) <5.7 % 11/06/2024 11:09 AM EDT [facility] Blood Venous blood specimen / Unknown Venipuncture / Unknown 11/06/2024 1:07 AM EDT 11/06/2024 1:26 AM EDT Narrative [facility] - 11/06/2024 11:09 AM EDT HA1C Interpretive Data: Diagnosis of Diabetes: Diabetic > or = 6.5% Pre-diabetic 5.7 to 6.4% Non-diabetic < or = 5.6% Glycemic Targets for Type I and Type II Diabetics: Non- Adults <7.0% Adults <6.0% Children and Adolescents <7.5% Source: [employer]. Standards of medical care in diabetes,2017. Diabetes Care.2017:40 (suppl 1):S1-S135. us Nathaly Nowak MD LAB BLOOD ORDERABLES Final Resu lt Performing Organization Address City/[facility]/ZIP Co de Phone Number [facility] [address] [place] [address] * Blood Culture (Aerobic/Anaerobet Set) (11/06/2024 1:07 AM EDT) Culture No growth at day 5 11/11/2024 2:49 AM EDT [facility] Blood Structure of right hand / Unknown Venipuncture / Unknown 11/06/2024 1:07 AM EDT 11/06/2024 2:36 AM EDT us Nathaly Nowak MD LAB MICROBIOLOGY - GENERAL ORDE RABLES Final Result [facility] [address] [place] [address] * Blood Culture (Aerobic/Anaerobet Set) (11/06/2024 1:07 AM EDT) Culture No growth at day 5 11/11/2024 3:01 AM EDT [facility] Blood Structure of antecubital vein / Unknown Venipuncture / Unknown 11/06/2024 1:07 AM EDT 11/06/2024 2:36 AM EDT us Nathaly Nowak MD LAB MICROBIOLOGY - GENERAL ORDAna FRITZ Final Result [facility] [address] [place] [address] * (ABNORMAL) Basic metabolic panel (11/06/2024 1:07 AM EDT) Glucose, Plasma 207(H) 74 - 99 mg/dL 11/06/2024 1:41 AM EDT [facility] BUN, Plasma 20 8 - 23 mg/dL 11/06/2024 1:41 AM EDT [facility] Creatinine, Plasma 0.92 0.70 - 1.20 mg/dL 11/06/2024 1:41 AM EDT [facility] BUN/Creatinine Ratio 22 11/06/2024 1:41 AM EDT [facility] Sodium, Plasma 136 136 - 145 mmol/L 11/06/2024 1:41 AM EDT [facility] Potassium, Plasma 4.5 3.6 - 4.9 mmol/L 11/06/2024 1:41 AM EDT [facility] Chloride, Plasma 104 97 - 107 mmol/L 11/06/2024 1:41 AM EDT [facility] CO2, Plasma 22 22 - 29 mmol/L 11/06/2024 1:41 AM EDT [facility] Anion Gap 10 6 - 16 mmol/L 11/06/2024 1:41 AM EDT [facility] Total Calcium, Plasma 9.0 8.9 - 10.2 mg/dL 11/06/2024 1:41 AM EDT [facility] eGFRcr 92.3 mL/min/1.7 3m*2 11/06/2024 1:41 AM EDT [facility] Comment:Reported eGFRcr in m L/min/1.73m2 is based the CKD-EPI 2020 equation that does not use a race coefficient. Blood Venous blood specimen / Unknown Venipuncture / Unknown 11/06/2024 1:07 AM EDT 11/06/2024 1:12 AM EDT us Nathaly Nowak MD LAB BLOOD ORDERABLES Final Resu lt Performing Organization Address [facility]/ZIP Co de Phone Number [facility] [address] [place] [address] * Phosphorus (11/06/2024 1:07 AM EDT) Phosphorus, Plasma 3.2 2.5 - 4.5 mg/dL 11/06/2024 1:41 AM EDT [facility] Blood Venous blood specimen / Unknown Venipuncture / Unknown 11/06/2024 1:07 AM EDT 11/06/2024 1:12 AM EDT Nathaly Nowak MD LAB BLOOD ORDERABLES Final Resu lt Performing Organization Address [facility] Co de Phone Number [facility] [address] [place] [address] * Magnesium (11/06/2024 1:07 AM EDT) Magnesium, Plasma 2.2 1.9 - 2.4 mg/dL 11/06/2024 1:41 AM EDT [facility] Blood Venous blood specimen / Unknown Venipuncture / Unknown 11/06/2024 1:07 AM EDT 11/06/2024 1:12 AM EDT Nathaly Nowak MD LAB BLOOD ORDERABLES Final Resu lt Performing Organization Address City/[facility]/ZIP Co de Phone Number [facility] [address] [place] [address] * (ABNORMAL) CBC (11/06/2024 1:07 AM EDT) WBC Count 9.70 3.70 - 10.30 10*3/uL LAB HEMATOLOGY METHOD 11/06/2024 1:19 AM EDT [facility] RBC Count 2.89(L) 4.60 - 6.10 10*6/uL LAB HEMATOLOGY METHOD 11/06/2024 1:19 AM EDT [facility] HGB 8.8(L) 13.7 - 17.5 g/dL LAB HEMATOLOGY METHOD 11/06/2024 1:19 AM EDT [facility] HCT 26.2(L) 40.0 - 51.0 % LAB HEMATOLOGY METHOD 11/06/2024 1:19 AM EDT [facility] Platelet Count 542(H) 155 - 369 10*3/uL LAB HEMATOLOGY METHOD 11/06/2024 1:19 AM EDT [facility] MCV 91 79 - 98 fL LAB HEMATOLOGY METHOD 11/06/2024 1:19 AM EDT [facility] MCH 30.4 26.0 - 32.0 pg LAB HEMATOLOGY METHOD 11/06/2024 1:19 AM EDT [facility] MCHC 33.6 30.7 - 35.5 g/dL LAB HEMATOLOGY METHOD 11/06/2024 1:19 AM EDT [facility] RDW 13.2 11.5 - 14.5 % LAB HEMATOLOGY METHOD 11/06/2024 1:19 AM EDT [facility] MPV 8.7(L) 8.8 - 12.5 fL LAB HEMATOLOGY METHOD 11/06/2024 1:19 AM EDT [facility] nRBC 0.0 <=0.0 per 100 WBCs LAB HEMATOLOGY METHOD 11/06/2024 1:19 AM EDT [facility] Blood Venous blood specimen / Unknown Venipuncture / Unknown 11/06/2024 1:07 AM EDT 11/06/2024 1:12 AM EDT us Nathaly Nowak MD LAB BLOOD ORDERABLES Final Resu lt [facility] [address] [place] [address] * [facility] (11/06/2024 12:58 AM EDT) Extra Hold for add-ons 11/06/2024 3:21 AM EDT [facility] Comment:Auto resulted. Blood Venous blood specimen / Unknown 11/06/2024 12:58 AM EDT 11/06/2024 1:13 AM EDT us Nathaly Nowak MD LAB BLOOD ORDERABLES Final Resu lt Performing Organization Address [facility]/ZIP Co de Phone Number [facility] [address] [place] [address] * Gold Top (11/06/2024 12:58 AM EDT) Extra Hold for add-ons 11/06/2024 3:21 AM EDT [facility] Comment:Auto resulted. Blood Venous blood specimen / Unknown 11/06/2024 12:58 AM EDT 11/06/2024 1:13 AM EDT us Nathaly Nowak MD LAB BLOOD ORDERABLES Final Resu lt Performing Organization Address [facility] Co de Phone Number [facility] [address] [place] [address] * Light Green Top (11/06/2024 12:58 AM EDT) Extra Hold for add-ons 11/06/2024 3:21 AM EDT [facility] Comment:Auto resulted. Blood Venous blood specimen / Unknown 11/06/2024 12:58 AM EDT 11/06/2024 1:13 AM EDT us Nathaly Nowak MD LAB BLOOD ORDERABLES Final Resu lt Performing Organization Address [facility] Co de Phone Number [facility] [address] [place] [address] * Light Blue Top (11/06/2024 12:58 AM EDT) Extra Hold for add-ons 11/06/2024 3:21 AM EDT [facility] Comment:Auto resulted. Blood Venous blood specimen / Unknown 11/06/2024 12:58 AM EDT 11/06/2024 1:13 AM EDT us Nathaly Nowak MD LAB BLOOD ORDERABLES Final Resu lt Performing Organization Address [facility]/ZIP Co de Phone Number [facility] [address] [place] [address] * Light Blue Top (11/06/2024 12:58 AM EDT) Pathologist [facility] Extra Hold for add-ons 11/06/2024 3:21 AM EDT [facility] Comment:Auto resulted. Blood Venous blood specimen / Unknown 11/06/2024 12:58 AM EDT 11/06/2024 1:13 AM EDT Nathaly Nowak MD LAB BLOOD ORDERABLES Final Resu lt Performing Organization Address City/[facility]/ZIP Co de Phone Number [facility] [address] [place] [address] * (ABNORMAL) POCT glucose meter (11/06/2024 12:45 AM EDT) [facility] POCT Glucose 204(H) 74 - [...] 11/06/2024 12:48 AM EDT [facility] Chemical Equipment Repairer ID Raj Laird 11/07/19 25 12:48 AM EDT HEALTH[facility]ARE LAB Device ID [id number] 11/06/2024 12:48 AM EDT [facility] Specimen Type POC Capillary 11/06/2024 12:48 AM EDT [facility] Blood Capillary blood specimen / Unknown 11/06/2024 12:45 AM EDT 11/06/2024 12:48 AM EDT us Nathaly Nowak MD LAB POINT OF CARE TE ST DOCKED DEVICE UNSOLICITED RESULTS Final Result Performing Organization Address City/[facility] Co de Phone Number [facility] [address] [place] [address] documented in this encounter Visit Diagnoses Diagnosis [...] needed, Starting on Mon11/06/24 at 0031, Until [facility] 11/14/24 at 1804, Routine, line care sodium [...] needed, Starting on Mon11/06/24 at 0753, Until [facility] 11/14/24 at 1804, Routine, On Unit - Preprocedure, line care sodium chloride 0.9 % flush 10 mL 10 mL, Intravenous, Every 12 hours, First dose on [facility] 11/09/24 at 1515, Until Discontinued, [...] Comment: [phone] (Not Given - Provider: Devora oB - Reason: Order parameters not met) [phone] [...] Provider: Devora Bo)1317 (Given - Provider: Devora oB)1753 (Given - Provider: Devora Bo)2033 (Given - [...] - Reason: Patient/family refused)2031 (Given - Provider: Jontahan Vale RN) 0856 (Given - Provider: Yazmin [...] Routine 0939 (Not Given - Provider: Devora oB - Reason: Hold for condition: must add [...] documented as of this encounter Care Teams Senior Cost Analyst Relationship Specialty Start Date End Date Asad Victor MD [address] [place] [address] PCP - General 10/07/22 documented as of this encounter
--- OUTSIDE RECORDS SUMMARY | 2024-11-06 10:08 | XMS_ITS | Encounter Summary ---
Author Organization Healthcare Address [address] [place] [address] Care Team Providers Care Automotive Glass Installer Name Role Phone Asad Victor MD Primary Care Provider + [phone] Reason for Visit * Reason Comments Post-op Problem Wound Check * Auth/Cert (Routine) Specialty Diagnoses / Procedures Referred By Contac t Referred To Contact Diagnoses Wound infection Post-op Vasc Sx wounds - sx on 10/17 at Nathaly Nowak MD [address] [address] Phone: tel: fax: [facility] Emergency Department [address] [place] [address] Phone: tel: Referral ID Status Reason Start Date Expiration Date Visits Re quested Visits Authorized [id number] 1 1 Encounter Details Date Type Department Care Team (Late st Contact Info) Description 11/06/2024 10:08 AM EDT - 11/06/2024 11:38 AM EDT Surgery [facility] OPERATING ROOM [address] [place] [address] Nathaly Nowak MD [id number] [place] [address] Left groin exploration and washout, possible wound vac placement Surgery Details Date/Time Status Location OR Service Patient Class Case Class Case Type Trauma Case? 11/06/2024 10:08 AM Posted [facility] OR 16 Vascular Surgery Inpatient T-Timed: to be done within 24 hours Panel 1 Procedure LRB Anes Op Region Wound Class Comments Left groin exploration and washout, possible wound vac placement Left Choice Groin Class IV/ Dirty or Infected Surgeon Surgeon Role Service Panel Nathaly Nowak MD Primary Vascular Surgery 1 Luna Beckett MD Resident - Assisting 1 Jerry Holcomb MD Fellow 1 documented in this encounter Social History [...] money to buy more. 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 0 10/18/2021 CAGE Questionnaire Score 0 022 Utilities Answer Date Recorded In the past 12 months has [employer], gas, oil, or water [employer] threatened to shut off services in your home? No 11/07/2024 Sex and Gender Information Value Date Recorded Sex Assigned at Not on file Legal Sex Male 8:57 PM EDT Gender Identity Not on file Sexual Orientation Not on file documented as of this encounter Last Filed Vital Signs Vital Sign Reading Time Taken Comments Blood Pressure 158/55 11/06/2024 9:47 AM EDT Pulse 65 11/06/2024 9:47 AM EDT Temperature 36.8 C (98.3 F) 11/06/2024 9:47 AM EDT Respiratory Rate 18 11/06/2024 5:40 AM EDT Oxygen Saturation 97% 11/06/2024 9:47 AM EDT Inhaled Oxygen Concentration - - Weight 88.5 kg (195 lb 1.7 oz) 11/06/2024 12:00 AM EDT Height 170.2 cm (5' 7 ) 11/06/2024 12:00 AM EDT Body Mass Index 30.42 11/06/2024 12:00 AM EDT documented in this encounter Functional Status * Calculated C-SSRS Risk Score (Lifetime/Recent) Answer Date of Assessment Author No Risk Indicated 11/06/2024 9:47 AM EDT Giovanna Reza RN * Question Answer Date of Assessment Author 1. Wish to be (Past 1 Month) No 025 9:47 AM SIAT Giovanna Reza RN 2. Non-Specific Active Suici marcelle Thoughts (Past 1 Month) No 11/06/2024 9:47 AM EDT Svitlana Reza RN 6. Suicidal Behavior (Lifetime) No 9:47 AM EDT Giovanna Reza RN documented as of this encounter Discharge [...] Carmona with any questions or concerns at [phone]. It is important that you get your [...] at the same time. 120 each 11/14/2024 oxyCODONE (Roxicodone) 5 MG immediate release tablet [...] RN 11/14/2024 * Progress Notes - Mariia Monterroso - 11/14/2024 2:53 PM EDT Case Management Discharge Note Bev Borja 64 y.o. 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 Please arrive at 11 am daily. [facility] [address] Go to Wound care clinic. First appointment is 1:10 pm. Please call [phone] with scheduling concerns. Discharge Transportation: Transportation Anticipated: medical transport Transportation Home at Discharge: Medical Transport Follow Up Transport: Transportation Needed to Follow up Appoinments: Medical Transport Additional Comments: Patient discharging home. No other SW needs identified. Mariia Monterroso PRECIPITATOR SUPERVISOR * Discharge Summary - Melecio Echevarria DO - 11/14/2024 12:46 PM EDT Hospitalization Admit Date/Time: 11/05/2024 9:45 PM Admitting Attending: Nathaly Nowak Discharge Date: 11/14/2024 Discharge Attending Physician: Nathaly Nowak MD PCP name and Address: Asad Victor MD (Inactive) [address] [place] [address] / [address] [address] Referring provider name and address: Wade Cowart, DO [address] [place] [address] Chief Concern, Brief History of Present Illness, and Hospital Course Mr. Borja is a 64 y/o male that presented to [facility] on 11/06/2024 for surgical wound infection [...] Your Medications These medications were sent to [facility] Infusion Services - GLENDA Solorzano - [address], [place] [address] ertapenem injection micafungin injection Discharge Diagnosis Medical [...] 2:00 PM [facility] 1 [facility] 11/26/2024 2:30 PM [facility] 2 [facility] 11/26/2024 3:20 PM Elisabet Schuster PA [facility] 11/29/2024 2:30 PM Oscar Appiah MD [id number] [place] Test Results Pending At Discharge Pending Labs Order Current Status Additional Susceptibilities and/or Identification Collected (11/11/24 1237) Additional Susceptibilities and/or Identification Collected (11/11/24 1238) Additional Susceptibilities and/or Identification Collected (11/11/24 1240) Additional Susceptibilities and/or Identification Collected (11/12/24 1605) AFB Culture, Non Respiratory Source and Acid [...] a 64 y/o male that presented to [facility] on 11/06/2024 for surgical wound infection [...] wound vac changes. * Progress Notes - Dear, Bette Kahn RN - 11/14/2024 8:34 AM EDT BRENNAN Monterroso requested assistance with home health referral for [...] portions of the procedure(s) and immediately available [facility] the entire duration. See resident note for details. * Progress Notes - Mariia Monterroso - 11/13/2024 1:57 PM EDT Case Management Adult Progress Note Bev Borja 64 y.o. male CSN: [id number] Admission: 11/05/2024 9:45 PM Primary Problem: Wound infection Wound vac to be delivered today by at bedside. SW sent referral/orders to [facility] wound care center (fax [phone]) and infusion clinic (fax [phone]). Plan to discharge tomorrow. SW will continue to follow. Mariia Monterroso PRECIPITATOR SUPERVISOR * Progress Notes - Bianca Knight PharmD - 11/13/2024 12:55 PM EDT Vancomycin therapy has been stopped per ID recommendation. Pharmacist will sign off from dosing and monitoring vancomycin. Please re- consult a pharmacist if more vancomycin is indicated. Bianca Knight PharmD, [facility] * Progress Notes - Ailin Levy [...] Lumen PICC Antimicrobial Regimen: IV Ertapenem 1g [id number] start date:11/06/2024 Projected End date:12/18/2024 IV Micafungin 150mg [id number] Start date: 11/12/2024 Projected End Date: 12/24/2024 [...] OPAT Team Attn: Dr Kraus Fax #: [phone] Appointments: (Dr Appiah 08/02/2024 at 2.30pm) at: [facility]: [address] [place] [address] (Select Option 3 for IV Antibiotic / PICC line related issues) For questions regarding OPAT prior to discharge, reach out to the OPAT team via [employer] Secure Chat (Group: OPAT Referral Team). For all questions regarding OPAT after discharge should be directed to the OPAT Team at (Select Option 3 for IV Antibiotics/PICC Issues) between 8am-5pm. After 5 pm, or during weekends/ holidays, please call the paging gradall operator at to reach the on-call ID [...] from the original note were not included. [facility] [place] [facility] Department of Surgery Division of Vascular Surgery Surgery Progress Note 11/13/24 Bev Borja Subjective Subjective: HPI 64yoM PMHx COPD, T2DM, HLD, HTN, RLS, CAD s/p PCI (on Xarelto) s/p pacemaker c/b left SANDIP pseudoaneurysm s/p thrombin injection 09/21/24, CLI s/p left femoral endarterectomy with EIA/ROCKET ENGINE MECHANIC stenting 10/17/24, who presented to [facility] 11/05/2024 with wound infection. 11/06/24: [...] 09/21/24, CLI s/p left femoral endarterectomy with EIA/ROCKET ENGINE MECHANIC stenting 10/17/24, who presented to [facility] 11/05/2024 with wound infection. POD [...] the findings. Cardiac Device Check - PRE-OR [facility] EP-Device [facility]: Pre-operative CIED Report Assessment and Sara-Procedural Reommendations: Name: Bev Borja Date: 10/17/2024 : 1960 Age: 64 y.o. 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 Lead integrity test [...] recommendations. Supporting reports can be found in IGG media file. Micro: Susceptibility data from last [...] Units Date/Time Tissue Culture and Gram Stain [[id number]] (Abnormal) (Susceptibility) Collected: 11/06/24 1134 Order Status: Completed Specimen: Tissue from Other (specify site) Updated: 11/12/24 1334 Culture Moderate Growth 2+ Enterobacter cloacae complex Comment: This isolate has been identified using the FDA Approved [employer] CA System The organism value for this result has been updated. These results have been appended to the previously preliminary verified report. Edited result: Previously reported as Gram Negative Jesus on 11/07/2024 at 1434 EDT. 2+ Streptococcus mitis/oralis group Comment: This isolate has been identified using the FDA Approved MALDI Jog[employer] CA System The organism value for this result has been updated. These results have been appended to the previously preliminary verified report. 2+ Pasteurella stomatis Comment: This result was determined by MALDI tof mass spectrometry using the [employer] database and is for research use only. [...] stewardship team. Comprehensive GI Panel by PCR [[id number]] (Normal) Collected: 11/12/24 0950 Order Status: Completed [...] if clinically indicated. Clostridiodes (Clostridium) difficile PCR [[id number]] (Normal) Collected: 11/12/24 0950 Order Status: Completed [...] high complexity clinical laboratory testing. 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 These results have been appended to the previously preliminary verified report. Edited result: Previously reported as Yeast on 11/11/2024 at 1317 EDT. ISIDRO No fungal elements seen Additional Susceptibilities and/or Identification [[id number]] Collected: 11/11/24 1240 Order Status: Completed Specimen: Tissue from Wound (specify site): Additional Susceptibilities and/or Identification [[id number]] Collected: 11/11/24 1238 Order Status: Completed Specimen: Tissue from Wound (specify site): Additional Susceptibilities and/or Identification [[id number]] Collected: 11/11/24 1237 Order Status: Completed Specimen: Tissue from Wound (specify site): AFB Culture, Non Respiratory Source and Acid Fast Stain [[id number]] Collected: 11/06/24 1134 Order Status: Completed Specimen: Tissue from Other (specify site) Updated: 11/11/24 0938 AFB Culture No Mycobacterial Growth <1 Week Acid Fast Stain No acid fast bacilli seen Blood Culture (Aerobic/Anaerobet Set) [[id number]] Collected: 11/06/24106 Order Status: Completed Specimen: Blood from AC, Left Updated: 11/11/24 0301 Culture No growth at day 5 Blood Culture (Aerobic/Anaerobet Set) [[id number]] Collected: 11/06/24106 Order Status: Completed Specimen: Blood [...] [facility]. [facility] and [...] to stay a facility, plan for [facility] daily IV abx. Plan for [...] mg 1,000 mg Oral q6h [facility] Anthony Reyes MD 1,000 mg [...] Nightly Anthony Reyes MD 40 mg at 11/12/24 2123 rivaroxaban (Xarelto) tablet 20 mg 20 mg [...] Manage Infection Flowsheets (Taken 11/11/20248 by Jonathan Vale, RN) Infection Management: aseptic technique maintained Fever Reduction/Comfort Measures: lightweight bedding Isolation Precautions: protective contact Note: IV antibiotics Problem: Fall Injury Risk Goal: Absence of Fall and Fall-Related Injury Outcome: Ongoing, Progressing Note: Staff assistance Problem: Pain Acute Goal: Optimal Pain Control and Function Outcome: Ongoing, Progressing Intervention: Prevent or Manage Pain Flowsheets (Taken 11/11/2024 5730 by Jonathan Vale RN) Sensory Stimulation Regulation: care clustered lighting decreased quiet environment promoted Medication Review/Management: medications reviewed * Consults - Anabel Ovalle RD - 11/12/2024 9:59 AM EDT Adult Nutrition Evaluation Note Bev Borja 64 y.o. male CSN: [id number] Room/Bed 682/682B Nutrition evaluation type: assessment Reason for evaluation: LOS Hospital course: 64 y.o. male with PMHx significant for COPD, CAD s/p PCI (on Xarelto) s/p pacemaker c/b left SANDIP pseudoaneurysm s/p thrombin injection 09/21/24, chronic limb ischemia s/p left femoralendarterectomy with external iliac/common femoral artery stenting 10/17/24, T2DM, HLD, HTN, RLS who presented to the [facility] on 11/05/2024 with problems with his [...] (Room air) O2 Delivery Method: Face tent [place] Coma Scale Score: 15 Loi Scale Score: [...] (194 lb 3.6 oz) BMI (Calculated): 30.41 Gatzke Body Weight (kg): 67.3 Percent Gatzke Body Weight: 131 Adjusted Body Weight (kg): [...] oz) Estimated Needs: Kcal/ K-30 Kcal Provided: 0892-7278 Kcal Needs Based On: Adjusted weight Gm Protein/ Kg : 1.2-1.5 Protein Provided: 87-108 Protein Needs Based On: Adjusted weight Metabolic Cart Study Results: Current Nutrition Intake: Diet Order: Adult Diet Diet Texture: Regular Adult Carbohydrate Restriction: Consistent CHO 1 (2817-2244 Jatinder, 65 g/meal) Percent Meals Eaten (%): avg 63% x 6 emals Diet Experience and Nutrition History: Diet Education Provided: Will monitor Pertinent home medications: clopidogrel, docusate sodium, Lantus, Humalog, lisinopril, metoprolol tartrate, pravastatin, rivaroxaban, ropinirole, tamsulosin Pentecostalism needs: Nutrition Focused Physical Exam: Physical exam [...] ENDARTERECTOMY N/A 2017 Endarterectomy Carotid Artery from [employer] CORONARY ANGIOPLASTY Left Coronary Angiography With Concomitant Left Heart Catheterization from [employer] CORONARY ARTERY BYPASS GRAFT N/A 2018 3V ELBOW SURGERY Right ENDARTERECTOMY Left 10/17/2024 common/SFA/Profunda thromboendarterectomy, EIA/ROCKET ENGINE MECHANIC stent HERNIA REPAIR KNEE ARTHROSCOPY Left VASCULAR SURGERY Left 09/21/2024 ROCKET ENGINE MECHANIC pseudoaneurym injection [3] Social History Tobacco Use [...] from the original note were not included. [facility] Department of Surgery Division of Vascular Surgery Surgery Progress Note 11/12/24 Bev Perez Cristoferkeo Subjective Subjective: HPI 64yoM PMHx COPD, T2DM, HLD, HTN, RLS, CAD s/p PCI (on Xarelto) s/p pacemaker c/b left SANDIP pseudoaneurysm s/p thrombin injection 09/21/24, CLI s/p left femoral endarterectomy with EIA/ROCKET ENGINE MECHANIC stenting 10/17/24, who presented to [facility] 11/05/2024 with wound infection. 11/06/24: L groin/thigh washout and debridement. No arterial involvement noted. Interval: NAEO. Wound vac placed yesterday. Patient reports pain is well controlled. He continues to ambulate and have good PO intake. Wv on him, placement, might bleed Interval: FS 84 ->OJ-> FS 147. Edited by: Reid Daniesl MD at 11/12/2024 0832 Review of Systems: [...] 09/21/24, CLI s/p left femoral endarterectomy with EIA/ROCKET ENGINE MECHANIC stenting 10/17/24, who presented to [facility] 11/05/2024 with wound infection. POD [...] the findings. Cardiac Device Check - PRE-OR [facility] EP-Device [facility]: Pre-operative CIED Report Assessment and Sara-Procedural Reommendations: Name: Bev Borja Date: 10/17/2024 : 1960 Age: 64 y.o. 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 Lead integrity test [...] recommendations. Supporting reports can be found in IGG media file. Micro: Susceptibility data from last [...] Units Date/Time Tissue Culture and Gram Stain [[id number]] (Abnormal) (Susceptibility) Collected: 11/06/24 1134 Order Status: Completed Specimen: Tissue from Other (specify site) Updated: 11/12/24 1334 Culture Moderate Growth 2+ Enterobacter cloacae complex Comment: This isolate has been identified using the FDA Approved [employer] CA System The organism value for this result has been updated. These results have been appended to the previously preliminary verified report. Edited result: Previously reported as Gram Negative Jesus on 11/07/2024 at 1434 EDT. 2+ Streptococcus mitis/oralis group Comment: This isolate has been identified using the FDA Approved [employer] CA System The organism value for this result has been updated. These results have been appended to the previously preliminary verified report. 2+ Pasteurella stomatis Comment: This result was determined by MALDI tof mass spectrometry using the [employer] database and is for research use only. [...] stewardship team. Comprehensive GI Panel by PCR [[id number]] (Normal) Collected: 11/12/24 0950 Order Status: Completed [...] if clinically indicated. Clostridiodes (Clostridium) difficile PCR [[id number]] (Normal) Collected: 11/12/24 0950 Order Status: Completed [...] high complexity clinical laboratory testing. Anaerobic Culture [[id number]] Collected: 11/06/24 1128 Order Status: Completed Specimen: Swab from Other (specify site) Updated: 11/12/24 1118 Culture No growth at day 4 Fungal Culture, Tissue and ISIDRO [[id number]] (Abnormal) Collected: 11/06/24 1134 Order Status: Completed Specimen: Tissue from Other (specify site) Updated: 11/12/24 1033 Culture Reading Mycological 4 Weeks Rare [place] Sana parapsilosis Comment: This isolate has been identified using the FDA Approved [employer] CA System The organism value for this result has been updated. These results have been appended to the previously preliminary verified report. Edited result: Previously reported as Yeast on 11/11/2024 at 1317 EDT. ISIDRO No fungal elements seen Additional Susceptibilities and/or Identification [[id number]] Collected: 11/11/24 1240 Order Status: Completed Specimen: Tissue from Wound (specify site): Additional Susceptibilities and/or Identification [[id number]] Collected: 11/11/24 1238 Order Status: Completed Specimen: Tissue from Wound (specify site): Additional Susceptibilities and/or Identification [[id number]] Collected: 11/11/24 1237 Order Status: Completed Specimen: Tissue from Wound (specify site): AFB Culture, Non Respiratory Source and Acid Fast Stain [[id number]] Collected: 11/06/24 1134 Order Status: Completed Specimen: Tissue from Other (specify site) Updated: 11/11/24 0938 AFB Culture No Mycobacterial Growth <1 Week Acid Fast Stain No acid fast bacilli seen Blood Culture (Aerobic/Anaerobet Set) [[id number]] Collected: 11/06/24106 Order Status: Completed Specimen: Blood from AC, Left Updated: 11/11/24 0301 Culture No growth at day 5 Blood Culture (Aerobic/Anaerobet Set) [[id number]] Collected: 11/06/24106 Order Status: Completed Specimen: Blood [...] OSH. On 11/06, pt went to the [facility] vascular surgery for left groin exploration [...] to stay a facility, plan for [facility] daily IV abx. Plan for [...] mg 1,000 mg Oral q6h [facility] Anthony Reyes MD 1,000 mg at 11/12/24 1356 aspirin chewable tablet 81 mg 81 mg Oral Daily Reid Daniels MD 81 mg at 11/12/24 0938 cefepime (Maxipime) 2 g in sodium chloride 0.9% 100 mL IVPB (vial adapter required) 2 g [id number] Reid Daniels MD 36.7 mL/hr at 11/12/24 [...] Nightly Anthony Reyes MD 40 mg at 11/11/24 205 rivaroxaban (Xarelto) tablet 20 mg 20 mg [...] PM Anthony Reyes MD 0.4 mg at [id number] Vancomycin HCl in NaCl (Vancocin) IVPB 1,000 [...] send him home on micafungin as Rare [place] Sana parapsilosis grew and we do not [...] Obstructive Pulmonary Disease) Symptom Control Flowsheets (Taken 11/11/20242347) Breathing Techniques/Airway Clearance: deep/controlled cough encouraged Medication Review/Management: medications reviewed Goal: Blood Glucose Level Within Target Range 11/11/20242347 by Joanthan Vale RN Outcome: Ongoing, Progressing 11/11/20242336 by Jonathan Vale RN Outcome: Ongoing, Progressing Intervention: Monitor and Manage Glycemia Flowsheets (Taken 11/11/20242347) Medication Review/Management: medications reviewed Goal: Maintenance of Heart Failure Symptom Control 11/11/20242347 by Jonathan Vale RN Outcome: Ongoing, Progressing 11/11/2024 233 by Jonathan Vale RN Outcome: Ongoing, Progressing Intervention: Maintain Heart Failure Management Flowsheets (Taken 11/11/20242347) Medication Review/Management: medications reviewed Goal: Blood Pressure in Desired Range 11/11/20242347 by Jonathan Vale RN Outcome: Ongoing, Progressing 11/11/20242336 by Jonathan Vale RN Outcome: Ongoing, Progressing Intervention: Maintain Blood Pressure Management Flowsheets (Taken 11/11/20242347) Medication Review/Management: medications reviewed Goal: Maintenance of Osteoarthritis Symptom Control 11/11/20242347 by Jonathan Vale RN Outcome: Ongoing, Progressing 11/11/2024 233 by Jonathan Vale RN Outcome: Ongoing, Progressing Intervention: Maintain Osteoarthritis Symptom Control Flowsheets (Taken 11/11/20242347) Activity Management: ambulated in [...] Progressing Intervention: Optimize Glycemic Control Flowsheets (Taken 11/11/20242347) Hyperglycemia Management: blood glucose monitored Goal: Minimize Hypoglycemia Risk Outcome: Ongoing, Progressing Intervention: Minimize and Manage Hypoglycemia Flowsheets (Taken 11/11/20242347) Hypoglycemia Management: blood glucose monitored * Care Plan - Yazmin Bhatt RN - 11/11/2024 4:17 PM EDT Problem: Adult Inpatient Plan of Care Goal: Absence of Hospital-Acquired Illness or Injury Outcome: Ongoing, Progressing Intervention: Prevent Infection Flowsheets (Taken 11/11/20241614) Infection Prevention: environmental surveillance performed rest/sleep promoted [...] portions of the procedure(s) and immediately available [facility] the entire duration. See resident note for details. * Progress Notes - Mariia Monterroso - 11/11/2024 1:10 PM EDT Case Management Adult Progress Note Bev Borja 64 y.o. male CSN: [id number] Admission: 11/05/2024 9:45 PM Primary Problem: Wound infection Patient refusing inpatient placement for IV abx. [facility] infusion clinic can provide treatment. Face sheet, IV abx orders, and order for PICC care/labs/dressing changes need to be faxed to [phone]. Voicemail left with wound care clinic. Wound vac approved per , delivery pending. Crysll continue to follow. Mariia Monterroso PRECIPITATOR SUPERVISOR * Progress Notes - Dotty Sethi [...] the findings. Cardiac Device Check - PRE-OR [facility] EP-Device [facility]: Pre-operative CIED Report Assessment and Sara-Procedural Reommendations: Name: Bev Borja Date: 10/17/2024 : 1960 Age: 64 y.o. 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 Lead integrity test [...] recommendations. Supporting reports can be found in IGG media file. Micro: Susceptibility data from last [...] Non Respiratory Source and Acid Fast Stain [[id number]] Collected: 11/06/24 1134 Order Status: Completed Specimen: Tissue from Other (specify site) Updated: 11/11/24 0938 AFB Culture No Mycobacterial Growth <1 Week Acid Fast Stain No acid fast bacilli seen Blood Culture (Aerobic/Anaerobet Set) [[id number]] Collected: 11/06/24106 Order Status: Completed Specimen: Blood from AC, Left Updated: 11/11/24 0301 Culture No growth at day 5 Blood Culture (Aerobic/Anaerobet Set) [[id number]] Collected: 11/06/24 010 Order Status: Completed Specimen: Blood from Hand, Right Updated: 11/11/24 0249 Culture No growth at day 5 Anaerobic Culture [[id number]] Collected: 11/06/24 1128 Order Status: Completed Specimen: Swab from Other (specify site) Updated: 11/10/24 1441 Culture No growth at day 4 Routine Culture and Gram Stain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 [facility] Device ID [id number] 11/11/2024 6:01 PM EDT [facility] Specimen Type POC Capillary 11/11/2024 6:01 PM EDT [facility] Blood Capillary blood specimen / Unknown 11/11/2024 5:59 PM EDT 11/11/2024 6:01 PM EDT Nathaly Nowak MD LAB POINT OF CARE TE ST DOCKED DEVICE UNSOLICITED RESULTS Final Result Performing Organization Address City/[facility]/ZIP Co de Phone Number [facility] [address] [place] [address] * POCT glucose meter (11/11/2024 5:20 PM EDT) [facility] POCT Glucose 84 74 - 99 [...] Comment 11/11/2024 5:22 PM EDT [facility] Semiconductor Processor ID Wade Feliciano 5:22 PM EDT [facility] Device ID [id number] 11/11/2024 5:22 PM EDT [facility] Specimen Type POC Capillary 11/11/2024 5:22 PM EDT [facility] Blood Capillary blood specimen / Unknown 11/11/2024 5:20 PM EDT 11/11/2024 5:22 PM EDT us Nathaly Nowak MD LAB POINT OF CARE TE ST DOCKED DEVICE UNSOLICITED RESULTS Final Result [facility] [address] [place] [id number] * OR NEGATIVE PRESSURE WOUND THERAPY DME >50 SQ CM (11/11/2024 2:00 PM EDT) Narrative Neil Isaac MD - 11/11/2024 2:00 PM EDT Niel Isaac MD 11/11/2024 6:42 PM Wound Vac [...] 11/11/2024 12:10 PM EDT [facility] Semiconductor Processor ID BradenWade 12:10 PM EDT [facility] Device ID [id number] 11/11/2024 12:10 PM EDT [facility] Specimen Type POC Capillary 11/11/2024 12:10 PM EDT [facility] Blood Capillary blood specimen / Unknown 11/11/2024 12:08 PM EDT 11/11/2024 12:10 PM EDT us Nathaly Nowak MD LAB POINT OF CARE TE ST DOCKED DEVICE UNSOLICITED RESULTS Final Result [facility] [address] [place] [address] * (ABNORMAL) POCT glucose meter (11/11/2024 9:08 [...] for testing. Comment 11/11/2024 9:09 AM EDT [facility] Semiconductor Processor ID Wade Feliciano 9:09 AM EDT [facility] Device ID [id number] 11/11/2024 9:09 AM EDT [facility] Specimen Type POC Capillary 11/11/2024 9:09 AM EDT [facility] Blood Capillary blood specimen / Unknown 11/11/2024 9:08 AM EDT 11/11/2024 9:09 AM EDT us Nathaly Nowak MD LAB POINT OF CARE TE ST DOCKED DEVICE UNSOLICITED RESULTS Final Result Performing Organization Address City/[facility]/ZIP Co de Phone Number [facility] [address] [place] [address] * POCT glucose meter (11/11/2024 8:27 AM EDT) Pathologist [facility] POCT Glucose 87 74 - 99 [...] for testing. Comment 11/11/2024 8:28 AM EDT [facility] Semiconductor Processor ID Wade Feliciano 8:28 AM EDT [facility] Device ID [id number] 11/11/2024 8:28 AM EDT [facility] Specimen Type POC Capillary 11/11/2024 8:28 AM EDT [facility] Blood Capillary blood specimen / Unknown 11/11/2024 8:27 AM EDT 11/11/2024 8:28 AM EDT us Nathaly Nowak MD LAB POINT OF CARE TE ST DOCKED DEVICE UNSOLICITED RESULTS Final Result [facility] [address] [place] [address] * (ABNORMAL) Basic Metabolic Panel, Plasma (11/11/2024 1:12 AM EDT) Glucose, Plasma 122(H) 74 - 99 mg/dL 11/11/2024 1:12 AM EDT [facility] BUN, Plasma 10 8 - 23 mg/dL 11/11/2024 1:12 AM EDT [facility] Creatinine, Plasma 0.82 0.70 - 1.20 mg/dL 11/11/2024 1:12 AM EDT [facility] BUN/Creatinine Ratio 12 11/11/2024 1:12 AM EDT [facility] Sodium, Plasma 137 136 - 145 mmol/L 11/11/2024 1:12 AM EDT [facility] Potassium, Plasma 3.9 3.6 - 4.9 mmol/L 11/11/2024 1:12 AM EDT [facility] Chloride, Plasma 110(H) 97 - 107 mmol/L 11/11/2024 1:12 AM EDT [facility] CO2, Plasma 20(L) 22 - 29 mmol/L 11/11/2024 1:12 AM EDT [facility] Anion Gap 7 6 - 16 mmol/L 11/11/2024 1:12 AM EDT [facility] Total Calcium, Plasma 7.6(L) 8.9 - 10.2 mg/dL 11/11/2024 1:12 AM EDT [facility] eGFRcr 97.5 mL/min/1.7 3m*2 11/11/2024 1:12 AM EDT [facility] Comment:Reported eGFRcr in m L/min/1.73m2 is based the CKD-EPI 2020 equation that does not use a race coefficient. Blood Venous blood specimen / Unknown 11/11/2024 12:42 AM EDT us Nathaly Nowak MD LAB BLOOD ORDERABLES Final Resu lt [facility] [address] [place] [address] * (ABNORMAL) CBC W/O Differential (11/11/2024 12:56 AM EDT) WBC Count 11.83(H) 3.70 - 10.30 10*3/uL LAB HEMATOLOGY METHOD 11/11/2024 12:56 AM EDT [facility] RBC Count 2.97(L) 4.60 - 6.10 10*6/uL LAB HEMATOLOGY METHOD 11/11/2024 12:56 AM EDT [facility] HGB 8.9(L) 13.7 - 17.5 g/dL LAB HEMATOLOGY METHOD 11/11/2024 12:56 AM EDT [facility] HCT 27.2(L) 40.0 - 51.0 % LAB HEMATOLOGY METHOD 11/11/2024 12:56 AM EDT [facility] Platelet Count 444(H) 155 - 369 10*3/uL LAB HEMATOLOGY METHOD 11/11/2024 12:56 AM EDT [facility] MCV 92 79 - 98 fL LAB HEMATOLOGY METHOD 11/11/2024 12:56 AM EDT [facility] MCH 30.0 26.0 - 32.0 pg LAB HEMATOLOGY METHOD 11/11/2024 12:56 AM EDT [facility] MCHC 32.7 30.7 - 35.5 g/dL LAB HEMATOLOGY METHOD 11/11/2024 12:56 AM EDT [facility] RDW 13.3 11.5 - 14.5 % LAB HEMATOLOGY METHOD 11/11/2024 12:56 AM EDT [facility] MPV 9.0 8.8 - 12.5 fL LAB HEMATOLOGY METHOD 11/11/2024 12:56 AM EDT [facility] nRBC 0.0 <=0.0 per 100 WBCs LAB HEMATOLOGY METHOD 11/11/2024 12:56 AM EDT [facility] Blood Venous blood specimen / Unknown 11/11/2024 12:42 AM EDT Nathaly Nowak MD LAB BLOOD ORDERABLES Final Resu lt Performing Organization Address City/[facility]/ZIP Co de Phone Number [facility] [address] [place] [address] * (ABNORMAL) POCT glucose meter (11/10/2024 8:25 [...] Comment 11/10/2024 8:28 PM EDT [facility] Semiconductor Processor ID Nelda Gerber 11/11/19 8:28 PM EDT [facility] Device ID [id number] 11/10/2024 8:28 PM EDT [facility] Specimen Type POC Capillary 11/10/2024 8:28 PM EDT [facility] Blood Capillary blood specimen / Unknown 11/10/2024 8:25 PM EDT 11/10/2024 8:28 PM EDT us Nathaly Nowak MD LAB POINT OF CARE TE ST DOCKED DEVICE UNSOLICITED RESULTS Final Result Performing Organization Address City/[facility]/ZIP Co de Phone Number [facility] [address] [place] [address] * (ABNORMAL) POCT glucose meter (11/10/2024 4:45 [...] 11/10/2024 4:47 PM EDT [facility] Semiconductor Processor ID Esperanza Parks 11/10/2024 4:47 PM EDT [facility] Device ID [id number] 11/10/2024 4:47 PM EDT [facility] Specimen Type POC Capillary 11/10/2024 4:47 PM EDT [facility] Blood Capillary blood specimen / Unknown 11/10/2024 4:45 PM EDT 11/10/2024 4:47 PM EDT Nathaly Nowak MD LAB POINT OF CARE TE ST DOCKED DEVICE UNSOLICITED RESULTS Final Result [facility] [address] [place] [address] * (ABNORMAL) POCT glucose meter (11/10/2024 12:13 PM EDT) [facility] POCT Glucose 131(H) 74 - 99 [...] 11/10/2024 12:14 PM EDT [facility] Semiconductor Processor ID Esperanza Parks 11/10/2024 12:14 PM EDT [facility] Device ID [id number] 11/10/2024 12:14 PM EDT [facility] Specimen Type POC Capillary 11/10/2024 12:14 PM EDT [facility] Blood Capillary blood specimen / Unknown 11/10/2024 12:13 PM EDT 11/10/2024 12:14 PM EDT us Nathaly Nowak MD LAB POINT OF CARE TE ST DOCKED DEVICE UNSOLICITED RESULTS Final Result Performing Organization Address [facility] Co de Phone Number [facility] [address] [place] [address] * Vancomycin, Peak, Plasma Please draw ~2 hours after 0800 dose of vancomycin finishes infusing. Consider obtaining level via peripheral stick. If peripheral stick is not feasible, please ensure that line is flushed well prior to drawing level. Than... (11/10/2024 10:56 AM EDT) [facility] Vancomycin, Peak, Plasma 23.8 20.0 - 40.0 ug/mL 11/10/2024 11:25 AM EDT [facility] Blood Venous blood specimen / Unknown Venipuncture / Unknown 11/10/2024 10:56 AM EDT 11/10/2024 11:00 AM EDT Narrative [facility] - 11/10/2024 11:25 AM EDT Therapeutic Peak level: 20-40ug/mL Supra-therapeutic Peak level: >40 ug/mL us Abigail Seay MD LAB BLOOD ORDERABLES Final Res ult Performing Organization Address [facility] de Phone Number [facility] [address] [place] [address] * (ABNORMAL) POCT glucose meter (11/10/2024 8:03 AM EDT) [facility] POCT Glucose 174(H) 74 - 99 mg/dL 11/10/2024 8:04 AM EDT [facility] Comment:Accuracy of a glucos e result [...] Comment 11/10/2024 8:04 AM EDT [facility] Semiconductor Processor ID Esperanza Parks 11/10/2024 8:04 AM EDT [facility] Device ID [id number] 11/10/2024 8:04 AM EDT [facility] Specimen Type POC Capillary 11/10/2024 8:04 AM EDT [facility] Blood Capillary blood specimen / Unknown 11/10/2024 8:03 AM EDT 11/10/2024 8:04 AM EDT us Nathaly Nowak MD LAB POINT OF CARE TE ST DOCKED DEVICE UNSOLICITED RESULTS Final Result Performing Organization Address [facility] Co de Phone Number [facility] [address] [place] [address] * Vancomycin, Trough, Plasma Please draw ~30 minutes prior to dose due at 0800 on 11/10. Please do NOThold dose awaiting level to return. Consider obtaining level via peripheral stick. If peripheral stick is not feasible, please ensure that line is... (11/10/2024 7:27 AM EDT) Vancomycin, Trough, Plasma 16.2 10.0 - 20.0 ug/mL 11/10/2024 8:24 AM EDT [facility] Blood Venous blood specimen / Unknown Venipuncture / Unknown 11/10/2024 7:27 AM EDT 11/10/2024 7:51 AM EDT Narrative [facility] - 11/10/2024 8:24 AM EDT Therapeutic Trough level: 10-20ug/mL Supra-therapeutic Trough level: >20 ug/mL us Abigail Seay MD LAB BLOOD ORDERABLES Final Res ult Performing Organization Address City/[facility]/ZIP Co de Phone Number [facility] [address] [place] [address] * (ABNORMAL) CBC and Differential (11/10/2024 12:31 AM EDT) WBC Count 10.80(H) 3.70 - 10.30 10*3/uL LAB HEMATOLOGY METHOD 11/10/2024 12:53 AM EDT [facility] RBC Count 3.06(L) 4.60 - 6.10 10*6/uL LAB HEMATOLOGY METHOD 11/10/2024 12:53 AM EDT [facility] HGB 9.1(L) 13.7 - 17.5 g/dL LAB HEMATOLOGY METHOD 11/10/2024 12:53 AM EDT [facility] HCT 28.0(L) 40.0 - 51.0 % LAB HEMATOLOGY METHOD 11/10/2024 12:53 AM EDT [facility] Platelet Count 501(H) 155 - 369 10*3/uL LAB HEMATOLOGY METHOD 11/10/2024 12:53 AM EDT [facility] MCV 92 79 - 98 fL LAB HEMATOLOGY METHOD 11/10/2024 12:53 AM EDT [facility] MCH 29.7 26.0 - 32.0 pg LAB HEMATOLOGY METHOD 11/10/2024 12:53 AM EDT [facility] MCHC 32.5 30.7 - 35.5 g/dL LAB HEMATOLOGY METHOD 11/10/2024 12:53 AM EDT [facility] RDW 13.2 11.5 - 14.5 % LAB HEMATOLOGY METHOD 11/10/2024 12:53 AM EDT [facility] MPV 8.8 8.8 - 12.5 fL LAB HEMATOLOGY METHOD 11/10/2024 12:53 AM EDT [facility] nRBC 0.0 <=0.0 per 100 WBCs LAB HEMATOLOGY METHOD 11/10/2024 12:53 AM EDT [facility] Differential Type Automated LAB HEMATOLOGY METHOD 11/10/2024 12:53 AM EDT [facility] Neutrophils % 77 % LAB HEMATOLOGY METHOD 11/10/2024 12:53 AM EDT [facility] Lymphocytes % 13 % LAB HEMATOLOGY METHOD 11/10/2024 12:53 AM EDT [facility] Monocytes % 8 % LAB HEMATOLOGY METHOD 11/10/2024 12:53 AM EDT [facility] Eosinophils % 1 % LAB HEMATOLOGY METHOD 11/10/2024 12:53 AM EDT [facility] Basophils % 0 % LAB HEMATOLOGY METHOD 11/10/2024 12:53 AM EDT [facility] Immature Granulocytes % 1 % LAB HEMATOLOGY METHOD 11/10/2024 12:53 AM EDT [facility] Neutrophils Absolute 8.32(H) 1.60 - 6.10 10*3/uL LAB HEMATOLOGY METHOD 11/10/2024 12:53 AM EDT [facility] Lymphocytes Absolute 1.40 1.20 - 3.90 10*3/uL LAB HEMATOLOGY METHOD 11/10/2024 12:53 AM EDT [facility] Monocytes Absolute 0.89 0.30 - 0.90 10*3/uL LAB HEMATOLOGY METHOD 11/10/2024 12:53 AM EDT [facility] Eosinophils Absolute 0.09 0.00 - 0.50 10*3/uL LAB HEMATOLOGY METHOD 11/10/2024 12:53 AM EDT [facility] Basophils Absolute 0.04 0.00 - 0.10 10*3/uL LAB HEMATOLOGY METHOD 11/10/2024 12:53 AM EDT [facility] Immature Granulocytes Absolute 0.06 0.00 - 0.06 10*3/uL LAB HEMATOLOGY METHOD 11/10/2024 12:53 AM EDT [facility] Blood Venous blood specimen / Unknown Venipuncture / Unknown 11/10/2024 12:31 AM EDT 11/10/2024 12:37 AM EDT Narrative [facility] - 11/10/2024 12:53 AM EDT Therapeutic decision making should be based on absolute values, rather than percentages. us Nathaly Nowak MD LAB BLOOD ORDERABLES Final Resu lt [facility] [address] [place] [address] * (ABNORMAL) Comprehensive Metabolic Panel, Plasma (11/10/2024 12:31 AM EDT) Glucose, Plasma 185(H) 74 - 99 mg/dL 11/10/2024 1:05 AM EDT [facility] BUN, Plasma 9 8 - 23 mg/dL 11/10/2024 1:05 AM EDT [facility] Creatinine, Plasma 0.72 0.70 - 1.20 mg/dL 11/10/2024 1:05 AM EDT [facility] BUN/Creatinine Ratio 13 11/10/2024 1:05 AM EDT [facility] Sodium, Plasma 135(L) 136 - 145 mmol/L 11/10/2024 1:05 AM EDT [facility] Potassium, Plasma 4.0 3.6 - 4.9 mmol/L 11/10/2024 1:05 AM EDT [facility] Chloride, Plasma 106 97 - 107 mmol/L 11/10/2024 1:05 AM EDT [facility] CO2, Plasma 19(L) 22 - 29 mmol/L 11/10/2024 1:05 AM EDT [facility] Anion Gap 10 6 - 16 mmol/L 11/10/2024 1:05 AM EDT [facility] Total Calcium, Plasma 7.8(L) 8.9 - 10.2 mg/dL 11/10/2024 1:05 AM EDT [facility] Total Protein 5.6(L) 6.3 - 7.9 g/dL 11/10/2024 1:05 AM EDT [facility] Albumin, Plasma 3.1(L) 3.5 - 5.2 g/dL 11/10/2024 1:05 AM EDT [facility] AST, Plasma 33 10 - 50 U/L 11/10/2024 1:05 AM EDT [facility] ALT, Plasma 25 10 - 50 U/L 11/10/2024 1:05 AM EDT [facility] Alkaline Phosphatase, Plasma 108 40 - 115 U/L 11/10/2024 1:05 AM EDT [facility] Total Bilirubin, Plasma <0.2(L) 0.2 - 1.1 mg/dL 11/10/2024 1:05 AM EDT [facility] eGFRcr 101.4 mL/min/1.7 3m*2 11/10/2024 1:05 AM EDT [facility] Comment:Reported eGFRcr in m L/min/1.73m2 is based the CKD-EPI 2020 equation that does not use a race coefficient. Blood Venous blood specimen / Unknown Venipuncture / Unknown 11/10/2024 12:31 AM EDT 11/10/2024 12:37 AM EDT us Nathaly Nowak MD LAB BLOOD ORDERABLES Final Resu lt [facility] [address] [place] [address] * (ABNORMAL) POCT glucose meter (11/09/2024 8:04 PM EDT) [facility] POCT Glucose 114(H) 74 - 99 [...] Comment 11/09/2024 8:06 PM EDT [facility] Semiconductor Processor ID Maximiliano Hansen II 11/09/2024 8:06 PM EDT [facility] Device ID [id number] 11/09/2024 8:06 PM EDT [facility] Specimen Type POC Capillary 11/09/2024 8:06 PM EDT [facility] Blood Capillary blood specimen / Unknown 11/09/2024 8:04 PM EDT 11/09/2024 8:06 PM EDT Nathaly Nowak MD LAB POINT OF CARE TE ST DOCKED DEVICE UNSOLICITED RESULTS Final Result Performing Organization Address [facility] Co de Phone Number [facility] [address] [place] [address] * (ABNORMAL) POCT glucose meter (11/09/2024 4:36 PM EDT) [facility] POCT Glucose 166(H) 74 - 99 [...] 11/09/2024 4:38 PM EDT [facility] Semiconductor Processor ID Kristian Sosa 11/09/2024 4:38 PM EDT [facility] Device ID [id number] 11/09/2024 4:38 PM EDT [facility] Specimen Type POC Capillary 11/09/2024 4:38 PM EDT [facility] Blood Capillary blood specimen / Unknown 11/09/2024 4:36 PM EDT 11/09/2024 4:38 PM EDT Nathaly Nowak MD LAB POINT OF CARE TE ST DOCKED DEVICE UNSOLICITED RESULTS Final Result [facility] [address] [place] [address] * PICC SINGLE LUMEN ([employer] LINK) (11/09/2024 1:11 PM EDT) Narrative Estefani Barraza RN - 11/09/2024 1:11 PM EDT Estefani Barraza RN 11/09/2024 1:12 PM Insert PICC line Date/Time: 11/09/2024 1:11 PM Performed by: Estefani Barraza RN Authorized by: Nathaly Nowak MD [place] Protocol: Verbal consent obtained?: Yes Written consent [...] selection rationale: Left pacemaker Catheter Lot #: [id number] Catheter environmental designer: [email or web address] Catheter placed: Single lumen Catheter size: 4 Fr Catheter trimmed length: 42 Catheter threaded length: 42 Vein placed in: SVC Catheter cm indwellin Catheter cm outside: 0 Placement confirmed by: Sherlock 3CG technology Pre-procedure: Landmarks identified Ultrasound guidance: [...] Comment 11/09/2024 11:51 AM EDT [facility] Semiconductor Processor ID Kristian Sosa 11/09/2024 11:51 AM EDT [facility] Device ID [id number] 11/09/2024 11:51 AM EDT [facility] Specimen Type POC Capillary 11/09/2024 11:51 AM EDT [facility] Blood Capillary blood specimen / Unknown 11/09/2024 11:50 AM EDT 11/09/2024 11:51 AM EDT Nathaly Nowak MD LAB POINT OF CARE TE ST DOCKED DEVICE UNSOLICITED RESULTS Final Result [facility] [address] [place] [id number] * (ABNORMAL) POCT glucose meter (11/09/2024 8:14 [...] Comment 11/09/2024 8:15 AM EDT [facility] Semiconductor Processor ID Kristian Sosa 11/09/2024 8:15 AM EDT [facility] Device ID [id number] 11/09/2024 8:15 AM EDT [facility] Specimen Type POC Capillary 11/09/2024 8:15 AM EDT [facility] Blood Capillary blood specimen / Unknown 11/09/2024 8:14 AM EDT 11/09/2024 8:15 AM EDT us Nathaly Nowak MD LAB POINT OF CARE TE ST DOCKED DEVICE UNSOLICITED RESULTS Final Result Performing Organization Address City/State/[facility] Co de Phone Number [facility] [address] [place] [address] * (ABNORMAL) CBC and Differential (11/09/2024 4:15 AM EDT) WBC Count 10.27 3.70 - 10.30 10*3/uL LAB HEMATOLOGY METHOD 11/09/2024 4:26 AM EDT [facility] RBC Count 3.14(L) 4.60 - 6.10 10*6/uL LAB HEMATOLOGY METHOD 11/09/2024 4:26 AM EDT [facility] HGB 9.2(L) 13.7 - 17.5 g/dL LAB HEMATOLOGY METHOD 11/09/2024 4:26 AM EDT [facility] HCT 28.3(L) 40.0 - 51.0 % LAB HEMATOLOGY METHOD 11/09/2024 4:26 AM EDT [facility] Platelet Count 468(H) 155 - 369 10*3/uL LAB HEMATOLOGY METHOD 11/09/2024 4:26 AM EDT [facility] MCV 90 79 - 98 fL LAB HEMATOLOGY METHOD 11/09/2024 4:26 AM EDT [facility] MCH 29.3 26.0 - 32.0 pg LAB HEMATOLOGY METHOD 11/09/2024 4:26 AM EDT [facility] MCHC 32.5 30.7 - 35.5 g/dL LAB HEMATOLOGY METHOD 11/09/2024 4:26 AM EDT [facility] RDW 13.1 11.5 - 14.5 % LAB HEMATOLOGY METHOD 11/09/2024 4:26 AM EDT [facility] MPV 8.7(L) 8.8 - 12.5 fL LAB HEMATOLOGY METHOD 11/09/2024 4:26 AM EDT [facility] nRBC 0.0 <=0.0 per 100 WBCs LAB HEMATOLOGY METHOD 11/09/2024 4:26 AM EDT [facility] Differential Type Automated LAB HEMATOLOGY METHOD 11/09/2024 4:26 AM EDT [facility] Neutrophils % 77 % LAB HEMATOLOGY METHOD 11/09/2024 4:26 AM EDT [facility] Lymphocytes % 13 % LAB HEMATOLOGY METHOD 11/09/2024 4:26 AM EDT [facility] Monocytes % 8 % LAB HEMATOLOGY METHOD 11/09/2024 4:26 AM EDT [facility] Eosinophils % 1 % LAB HEMATOLOGY METHOD 11/09/2024 4:26 AM EDT [facility] Basophils % 0 % LAB HEMATOLOGY METHOD 11/09/2024 4:26 AM EDT [facility] Immature Granulocytes % 1 % LAB HEMATOLOGY METHOD 11/09/2024 4:26 AM EDT [facility] [facility] Neutrophils Absolute 7.97(H) 1.60 - 6.10 10*3/uL LAB HEMATOLOGY METHOD 11/09/2024 4:26 AM EDT [facility] Lymphocytes Absolute 1.32 1.20 - 3.90 10*3/uL LAB HEMATOLOGY METHOD 11/09/2024 4:26 AM EDT [facility] Monocytes Absolute 0.83 0.30 - 0.90 10*3/uL LAB HEMATOLOGY METHOD 11/09/2024 4:26 AM EDT [facility] Eosinophils Absolute 0.07 0.00 - 0.50 10*3/uL LAB HEMATOLOGY METHOD 11/09/2024 4:26 AM EDT [facility] Basophils Absolute 0.03 0.00 - 0.10 10*3/uL LAB HEMATOLOGY METHOD 11/09/2024 4:26 AM EDT [facility] Immature Granulocytes Absolute 0.05 0.00 - 0.06 10*3/uL LAB HEMATOLOGY METHOD 11/09/2024 4:26 AM EDT [facility] Blood Venous blood specimen / Unknown Venipuncture / Unknown 11/09/2024 4:15 AM EDT 11/09/2024 4:18 AM EDT Narrative [facility] - 11/09/2024 4:26 AM EDT Therapeutic decision making should be based on absolute values, rather than percentages. us Nathaly Nowak MD LAB BLOOD ORDERABLES Final Resu lt [facility] [address] [place] [address] * (ABNORMAL) Comprehensive Metabolic Panel, Plasma (11/09/2024 4:15 AM EDT) Glucose, Plasma 171(H) 74 - 99 mg/dL 11/09/2024 4:47 AM EDT [facility] BUN, Plasma 9 8 - 23 mg/dL 11/09/2024 4:47 AM EDT [facility] Creatinine, Plasma 0.67(L) 0.70 - 1.20 mg/dL 11/09/2024 4:47 AM EDT [facility] BUN/Creatinine Ratio 13 11/09/2024 4:47 AM EDT [facility] Sodium, Plasma 134(L) 136 - 145 mmol/L 11/09/2024 4:47 AM EDT [facility] Potassium, Plasma 4.1 3.6 - 4.9 mmol/L 11/09/2024 4:47 AM EDT [facility] Chloride, Plasma 104 97 - 107 mmol/L 11/09/2024 4:47 AM EDT [facility] CO2, Plasma 21(L) 22 - 29 mmol/L 11/09/2024 4:47 AM EDT [facility] Anion Gap 9 6 - 16 mmol/L 11/09/2024 4:47 AM EDT [facility] Total Calcium, Plasma 8.4(L) 8.9 - 10.2 mg/dL 11/09/2024 4:47 AM EDT [facility] Total Protein 5.8(L) 6.3 - 7.9 g/dL 11/09/2024 4:47 AM EDT [facility] Albumin, Plasma 3.2(L) 3.5 - 5.2 g/dL 11/09/2024 4:47 AM EDT [facility] AST, Plasma 18 10 - 50 U/L 11/09/2024 4:47 AM EDT [facility] ALT, Plasma 17 10 - 50 U/L 11/09/2024 4:47 AM EDT [facility] Alkaline Phosphatase, Plasma 110 40 - 115 U/L 11/09/2024 4:47 AM EDT [facility] Total Bilirubin, Plasma <0.2(L) 0.2 - 1.1 mg/dL 11/09/2024 4:47 AM EDT [facility] eGFRcr 103.6 mL/min/1.7 3m*2 11/09/2024 4:47 AM EDT [facility] Comment:Reported eGFRcr in m L/min/1.73m2 is based the CKD-EPI 2020 equation that does not use a race coefficient. Blood Venous blood specimen / Unknown Venipuncture / Unknown 11/09/2024 4:15 AM EDT 11/09/2024 4:18 AM EDT us Nathaly Nowak MD LAB BLOOD ORDERABLES Final Resu lt [facility] [address] [place] [address] * (ABNORMAL) POCT glucose meter (11/09/2024 3:30 AM EDT) POCT Glucose 160(H) 74 - 99 mg/dL 11/09/2024 3:31 AM EDT [facility] Comment:Accuracy of a glucos e result [...] Comment 11/09/2024 3:31 AM EDT [facility] Semiconductor Processor ID Maximiliano Hansen II 11/09/2024 3:31 AM EDT [facility] Device ID [id number] 11/09/2024 3:31 AM EDT [facility] Specimen Type POC Capillary 11/09/2024 3:31 AM EDT [facility] Blood Capillary blood specimen / Unknown 11/09/2024 3:30 AM EDT 11/09/2024 3:31 AM EDT Nathaly Nowak MD LAB POINT OF CARE TE ST DOCKED DEVICE UNSOLICITED RESULTS Final Result Performing Organization Address City/[facility]/ZIP Co de Phone Number [facility] [address] [place] [address] * (ABNORMAL) POCT glucose meter (11/08/2024 7:21 [...] Comment 11/08/2024 7:22 PM EDT [facility] Semiconductor Processor ID Maximiliano Hansen II 11/08/2024 7:22 PM EDT [facility] Device ID [id number] 11/08/2024 7:22 PM EDT [facility] Specimen Type POC Capillary 11/08/2024 7:22 PM EDT [facility] Blood Capillary blood specimen / Unknown 11/08/2024 7:21 PM EDT 11/08/2024 7:22 PM EDT Nathaly Nowak MD LAB POINT OF CARE TE ST DOCKED DEVICE UNSOLICITED RESULTS Final Result Performing Organization Address City/[facility]/ZIP Co de Phone Number [facility] [address] [place] [address] * (ABNORMAL) POCT glucose meter (11/08/2024 5:12 PM EDT) [facility] POCT Glucose 178(H) 74 - 99 [...] Comment 11/08/2024 5:14 PM EDT [facility] Semiconductor Processor ID Estefani Sheth 11/08/2024 5:14 PM EDT [facility] Device ID [id number] 11/08/2024 5:14 PM EDT [facility] Specimen Type POC Capillary 11/08/2024 5:14 PM EDT [facility] Blood Capillary blood specimen / Unknown 11/08/2024 5:12 PM EDT 11/08/2024 5:14 PM EDT us Nathaly Nowak MD LAB POINT OF CARE TE ST DOCKED DEVICE UNSOLICITED RESULTS Final Result Performing Organization Address City/State/[facility] Co de Phone Number [facility] [address] [place] [address] * (ABNORMAL) POCT glucose meter (11/08/2024 12:03 PM EDT) [facility] POCT Glucose 191(H) 74 - 99 [...] Comment 11/08/2024 12:05 PM EDT [facility] Semiconductor Processor ID Estefani Sheth 11/08/2024 12:05 PM EDT [facility] Device ID [id number] 11/08/2024 12:05 PM EDT [facility] Specimen Type POC Capillary 11/08/2024 12:05 PM EDT [facility] Blood Capillary blood specimen / Unknown 11/08/2024 12:03 PM EDT 11/08/2024 12:05 PM EDT Nathaly Nowak MD LAB POINT OF CARE TE ST DOCKED DEVICE UNSOLICITED RESULTS Final Result Performing Organization Address [facility] de Phone Number [facility] [address] [place] [address] * Vancomycin, Peak, Plasma Please draw ~2 hours after 11/08 0600 dose of vancomycin finishes infusing.Consider obtaining level via peripheral stick. If peripheral stick is not feasible, please ensure that line is flushed well prior to drawing level.... (11/08/2024 9:24 AM EDT) [facility] Vancomycin, Peak, Plasma 29.1 20.0 - 40.0 ug/mL 11/08/2024 10:31 AM EDT [facility] Blood Venous blood specimen / Unknown Venipuncture / Unknown 11/08/2024 9:24 AM EDT 11/08/2024 9:47 AM EDT Narrative [facility] - 11/08/2024 10:31 AM EDT Therapeutic Peak level: 20-40ug/mL Supra-therapeutic Peak level: >40 ug/mL Nathaly Nowak MD LAB BLOOD ORDERABLES Final Resu lt Performing Organization Address [facility] Phone Number [facility] [address] [place] [address] * (ABNORMAL) POCT glucose meter (11/08/2024 8:00 AM EDT) [facility] POCT Glucose 150(H) 74 - 99 mg/dL 11/08/2024 8:01 AM EDT [facility] Comment:Accuracy of a glucos [...] Comment 11/08/2024 8:01 AM EDT [facility] Semiconductor Processor ID Estefani Sheth 11/08/2024 8:01 AM EDT [facility] Device ID [id number] 11/08/2024 8:01 AM EDT [facility] Specimen Type POC Capillary 11/08/2024 8:01 AM EDT [facility] Blood Capillary blood specimen / Unknown 11/08/2024 8:00 AM EDT 11/08/2024 8:01 AM EDT us Nathaly Nowak MD LAB POINT OF CARE TE ST DOCKED DEVICE UNSOLICITED RESULTS Final Result [facility] [address] [place] [address] * (ABNORMAL) CBC and Differential (11/08/2024 4:39 AM EDT) WBC Count 9.18 3.70 - 10.30 10*3/uL LAB HEMATOLOGY METHOD 11/08/2024 4:58 AM EDT [facility] RBC Count 3.11(L) 4.60 - 6.10 10*6/uL LAB HEMATOLOGY METHOD 11/08/2024 4:58 AM EDT [facility] HGB 9.2(L) 13.7 - 17.5 g/dL LAB HEMATOLOGY METHOD 11/08/2024 4:58 AM EDT [facility] HCT 28.9(L) 40.0 - 51.0 % LAB HEMATOLOGY METHOD 11/08/2024 4:58 AM EDT [facility] Platelet Count 485(H) 155 - 369 10*3/uL LAB HEMATOLOGY METHOD 11/08/2024 4:58 AM EDT [facility] MCV 93 79 - 98 fL LAB HEMATOLOGY METHOD 11/08/2024 4:58 AM EDT [facility] MCH 29.6 26.0 - 32.0 pg LAB HEMATOLOGY METHOD 11/08/2024 4:58 AM EDT [facility] MCHC 31.8 30.7 - 35.5 g/dL LAB HEMATOLOGY METHOD 11/08/2024 4:58 AM EDT [facility] RDW 13.0 11.5 - 14.5 % LAB HEMATOLOGY METHOD 11/08/2024 4:58 AM EDT [facility] MPV 8.8 8.8 - 12.5 fL LAB HEMATOLOGY METHOD 11/08/2024 4:58 AM EDT [facility] nRBC 0.0 <=0.0 per 100 WBCs LAB HEMATOLOGY METHOD 11/08/2024 4:58 AM EDT [facility] Differential Type Automated LAB HEMATOLOGY METHOD 11/08/2024 4:58 AM EDT [facility] Neutrophils % 69 % LAB HEMATOLOGY METHOD 11/08/2024 4:58 AM EDT [facility] Lymphocytes % 17 % LAB HEMATOLOGY METHOD 11/08/2024 4:58 AM EDT [facility] Monocytes % 10 % LAB HEMATOLOGY METHOD 11/08/2024 4:58 AM EDT [facility] Eosinophils % 2 % LAB HEMATOLOGY METHOD 11/08/2024 4:58 AM EDT [facility] Basophils % 1 % LAB HEMATOLOGY METHOD 11/08/2024 4:58 AM EDT [facility] Immature Granulocytes % 1 % LAB HEMATOLOGY METHOD 11/08/2024 4:58 AM EDT [facility] Neutrophils Absolute 6.40(H) 1.60 - 6.10 10*3/uL LAB HEMATOLOGY METHOD 11/08/2024 4:58 AM EDT [facility] Lymphocytes Absolute 1.59 1.20 - 3.90 10*3/uL LAB HEMATOLOGY METHOD 11/08/2024 4:58 AM EDT [facility] Monocytes Absolute 0.87 0.30 - 0.90 10*3/uL LAB HEMATOLOGY METHOD 11/08/2024 4:58 AM EDT [facility] Eosinophils Absolute 0.22 0.00 - 0.50 10*3/uL LAB HEMATOLOGY METHOD 11/08/2024 4:58 AM EDT [facility] Basophils Absolute 0.05 0.00 - 0.10 10*3/uL LAB HEMATOLOGY METHOD 11/08/2024 4:58 AM EDT [facility] Immature Granulocytes Absolute 0.05 0.00 - 0.06 10*3/uL LAB HEMATOLOGY METHOD 11/08/2024 4:58 AM EDT [facility] Blood Venous blood specimen / Unknown Venipuncture / Unknown 11/08/2024 4:39 AM EDT 11/08/2024 4:49 AM EDT Narrative [facility] - 11/08/2024 4:58 AM EDT Therapeutic decision making should be based on absolute values, rather than percentages. us Nathaly Nowak MD LAB BLOOD ORDERABLES Final Resu lt [facility] [address] [place] [address] * (ABNORMAL) Comprehensive Metabolic Panel, Plasma (11/08/2024 4:39 AM EDT) Glucose, Plasma 255(H) 74 - 99 mg/dL 11/08/2024 5:20 AM EDT [facility] BUN, Plasma 10 8 - 23 mg/dL 11/08/2024 5:20 AM EDT [facility] Creatinine, Plasma 0.75 0.70 - 1.20 mg/dL 11/08/2024 5:20 AM EDT [facility] BUN/Creatinine Ratio 13 11/08/2024 5:20 AM EDT [facility] Sodium, Plasma 133(L) 136 - 145 mmol/L 11/08/2024 5:20 AM EDT [facility] Potassium, Plasma 5.2(H) 3.6 - 4.9 mmol/L 11/08/2024 5:20 AM EDT [facility] Chloride, Plasma 105 97 - 107 mmol/L 11/08/2024 5:20 AM EDT [facility] CO2, Plasma 20(L) 22 - 29 mmol/L 11/08/2024 5:20 AM EDT [facility] Anion Gap 8 6 - 16 mmol/L 11/08/2024 5:20 AM EDT [facility] Total Calcium, Plasma 7.7(L) 8.9 - 10.2 mg/dL 11/08/2024 5:20 AM EDT [facility] Total Protein 5.6(L) 6.3 - 7.9 g/dL 11/08/2024 5:20 AM EDT [facility] Albumin, Plasma 2.8(L) 3.5 - 5.2 g/dL 11/08/2024 5:20 AM EDT [facility] AST, Plasma 20 10 - 50 U/L 11/08/2024 5:20 AM EDT [facility] Comment:Hemolyzed, result ma y be falsely increased. ALT, Plasma 14 10 - 50 U/L 11/08/2024 5:20 AM EDT [facility] Alkaline Phosphatase, Plasma 119(H) 40 - 115 U/L 11/08/2024 5:20 AM EDT [facility] Total Bilirubin, Plasma <0.2(L) 0.2 - 1.1 mg/dL 11/08/2024 5:20 AM EDT [facility] eGFRcr 100.1 mL/min/1.7 3m*2 11/08/2024 5:20 AM EDT [facility] Comment:Reported eGFRcr in m L/min/1.73m2 is based the CKD-EPI 2020 equation that does not use a race coefficient. Blood Venous blood specimen / Unknown Venipuncture / Unknown 11/08/2024 4:39 AM EDT 11/08/2024 4:43 AM EDT us Nathaly Nowak MD LAB BLOOD ORDERABLES Final Resu lt [facility] [address] [place] [address] * Vancomycin, Trough, Plasma Please draw ~30 minutes prior to dose due at 0600 on 11/08. Please do NOThold dose awaiting level to return. Consider obtaining level via peripheral stick. If peripheral stick is not feasible, please ensure that line is... (11/08/2024 4:39 AM EDT) Vancomycin, Trough, Plasma 18.7 10.0 - 20.0 ug/mL 11/08/2024 5:22 AM EDT [facility] Blood Venous blood specimen / Unknown Venipuncture / Unknown 11/08/2024 4:39 AM EDT 11/08/2024 4:43 AM EDT Narrative [facility] - 11/08/2024 5:22 AM EDT Therapeutic Trough level: 10-20ug/mL Supra-therapeutic Trough level: >20 ug/mL us Nathaly Nowak MD LAB BLOOD ORDERABLES Final Resu lt Performing Organization Address City/[facility]/ZIP Co de Phone Number [facility] [address] [place] [address] * (ABNORMAL) POCT glucose meter (11/07/2024 7:26 PM EDT) [facility]ologist [facility] POCT Glucose 172(H) 74 - 99 [...] Comment 11/07/2024 7:28 PM EDT [facility] Semiconductor Processor ID [email or web address] Hansen II 11/07/2024 7:28 PM EDT [facility] Device ID [id number] 11/07/2024 7:28 PM EDT [facility] Specimen Type POC Capillary 11/07/2024 7:28 PM EDT [facility] Blood Capillary blood specimen / Unknown 11/07/2024 7:26 PM EDT 11/07/2024 7:28 PM EDT us Nathaly Nowak MD LAB POINT OF CARE TE ST DOCKED DEVICE UNSOLICITED RESULTS Final Result Performing Organization Address City/[facility] Co de Phone Number [facility] [address] [place] [address] * (ABNORMAL) POCT glucose meter (11/07/2024 5:51 PM EDT) Pathologist [facility] POCT Glucose 183(H) 74 - 99 [...] 11/07/2024 5:52 PM EDT [facility] Semiconductor Processor ID Brigitte Castellon 11/07/2024 5:52 PM EDT [facility] Device ID [id number] 11/07/2024 5:52 PM EDT [facility] Specimen Type POC Capillary 11/07/2024 5:52 PM EDT [facility] Blood Capillary blood specimen / Unknown 11/07/2024 5:51 PM EDT 11/07/2024 5:52 PM EDT Nathaly Nowak MD LAB POINT OF CARE TE ST DOCKED DEVICE UNSOLICITED RESULTS Final Result Performing Organization Address [facility] de Phone Number [facility] [address] [place] [address] * (ABNORMAL) POCT glucose meter (11/07/2024 4:47 [...] 11/07/2024 4:48 PM EDT [facility] Semiconductor Processor ID Estefani Sheth 11/07/2024 4:48 PM EDT [facility] Device ID [id number] 11/07/2024 4:48 PM EDT [facility] Specimen Type POC Capillary 11/07/2024 4:48 PM EDT [facility] Blood Capillary blood specimen / Unknown 11/07/2024 4:47 PM EDT 11/07/2024 4:48 PM EDT Nathaly Nowak MD LAB POINT OF CARE TE ST DOCKED DEVICE UNSOLICITED RESULTS Final Result Performing Organization Address City/[facility] Co de Phone Number [facility] [address] [place] [address] * (ABNORMAL) POCT glucose meter (11/07/2024 12:22 PM EDT) [facility] POCT Glucose 172(H) 74 - 99 [...] Comment 11/07/2024 12:24 PM EDT [facility] Semiconductor Processor ID Estefani Sheth 11/07/2024 12:24 PM EDT [facility] Device ID [id number] 11/07/2024 12:24 PM EDT [facility] Specimen Type POC Capillary 11/07/2024 12:24 PM EDT [facility] Blood Capillary blood specimen / Unknown 11/07/2024 12:22 PM EDT 11/07/2024 12:24 PM EDT us Nathaly Nowak MD LAB POINT OF CARE TE ST DOCKED DEVICE UNSOLICITED RESULTS Final Result [facility] [address] [place] [address] * (ABNORMAL) CBC and Differential (11/07/2024 11:37 AM EDT) [facility] WBC Count 9.96 3.70 - 10.30 10*3/uL LAB HEMATOLOGY METHOD 11/07/2024 12:33 PM EDT [facility] RBC Count 2.81(L) 4.60 - 6.10 10*6/uL LAB HEMATOLOGY METHOD 11/07/2024 12:33 PM EDT [facility] HGB 8.5(L) 13.7 - 17.5 g/dL LAB HEMATOLOGY METHOD 11/07/2024 12:33 PM EDT [facility] HCT 26.0(L) 40.0 - 51.0 % LAB HEMATOLOGY METHOD 11/07/2024 12:33 PM EDT [facility] Platelet Count 524(H) 155 - 369 10*3/uL LAB HEMATOLOGY METHOD 11/07/2024 12:33 PM EDT [facility] MCV 93 79 - 98 fL LAB HEMATOLOGY METHOD 11/07/2024 12:33 PM EDT [facility] MCH 30.2 26.0 - 32.0 pg LAB HEMATOLOGY METHOD 11/07/2024 12:33 PM EDT [facility] MCHC 32.7 30.7 - 35.5 g/dL LAB HEMATOLOGY METHOD 11/07/2024 12:33 PM EDT [facility] RDW 13.1 11.5 - 14.5 % LAB HEMATOLOGY METHOD 11/07/2024 12:33 PM EDT [facility] MPV 9.0 8.8 - 12.5 fL LAB HEMATOLOGY METHOD 11/07/2024 12:33 PM EDT [facility] nRBC 0.0 <=0.0 per 100 WBCs LAB HEMATOLOGY METHOD 11/07/2024 12:33 PM EDT [facility] Differential Type Automated LAB HEMATOLOGY METHOD 11/07/2024 12:33 PM EDT [facility] Neutrophils % 72 % LAB HEMATOLOGY METHOD 11/07/2024 12:33 PM EDT [facility] Lymphocytes % 17 % LAB HEMATOLOGY METHOD 11/07/2024 12:33 PM EDT [facility] Monocytes % 9 % LAB HEMATOLOGY METHOD 11/07/2024 12:33 PM EDT [facility] Eosinophils % 1 % LAB HEMATOLOGY METHOD 11/07/2024 12:33 PM EDT [facility] Basophils % 1 % LAB HEMATOLOGY METHOD 11/07/2024 12:33 PM EDT [facility] Immature Granulocytes % 0 % LAB HEMATOLOGY METHOD 11/07/2024 12:33 PM EDT [facility] Neutrophils Absolute 7.19(H) 1.60 - 6.10 10*3/uL LAB HEMATOLOGY METHOD 11/07/2024 12:33 PM EDT [facility] Lymphocytes Absolute 1.66 1.20 - 3.90 10*3/uL LAB HEMATOLOGY METHOD 11/07/2024 12:33 PM EDT [facility] Monocytes Absolute 0.88 0.30 - 0.90 10*3/uL LAB HEMATOLOGY METHOD 11/07/2024 12:33 PM EDT [facility] Eosinophils Absolute 0.14 0.00 - 0.50 10*3/uL LAB HEMATOLOGY METHOD 11/07/2024 12:33 PM EDT [facility] Basophils Absolute 0.05 0.00 - 0.10 10*3/uL LAB HEMATOLOGY METHOD 11/07/2024 12:33 PM EDT [facility] Immature Granulocytes Absolute 0.04 0.00 - 0.06 10*3/uL LAB HEMATOLOGY METHOD 11/07/2024 12:33 PM EDT [facility] Blood Venous blood specimen / Unknown Venipuncture / Unknown 11/07/2024 11:37 AM EDT 11/07/2024 12:24 PM EDT Narrative [facility] - 11/07/2024 12:33 PM EDT Therapeutic decision making should be based on absolute values, rather than percentages. us Nathaly Nowak MD LAB BLOOD ORDERABLES Final Resu lt [facility] [address] [place] [address] * (ABNORMAL) Comprehensive Metabolic Panel, Plasma (11/07/2024 11:37 AM EDT) Glucose, Plasma 173(H) 74 - 99 mg/dL 11/07/2024 1:31 PM EDT [facility] BUN, Plasma 13 8 - 23 mg/dL 11/07/2024 1:31 PM EDT [facility] Creatinine, Plasma 0.92 0.70 - 1.20 mg/dL 11/07/2024 1:31 PM EDT [facility] BUN/Creatinine Ratio 11/07/2024 1:31 PM EDT [facility] Sodium, Plasma 136 136 - 145 mmol/L 11/07/2024 1:31 PM EDT [facility] Potassium, Plasma 4.0 3.6 - 4.9 mmol/L 11/07/2024 1:31 PM EDT [facility] Chloride, Plasma 104 97 - 107 mmol/L 11/07/2024 1:31 PM EDT [facility] CO2, Plasma 23 22 - 29 mmol/L 11/07/2024 1:31 PM EDT [facility] Anion Gap 9 6 - 16 mmol/L 11/07/2024 1:31 PM EDT [facility] Total Calcium, Plasma 7.8(L) 8.9 - 10.2 mg/dL 11/07/2024 1:31 PM EDT [facility] Total Protein 5.7(L) 6.3 - 7.9 g/dL 11/07/2024 1:31 PM EDT [facility] Albumin, Plasma 3.0(L) 3.5 - 5.2 g/dL 11/07/2024 1:31 PM EDT [facility] AST, Plasma 15 10 - 50 U/L 11/07/2024 1:31 PM EDT [facility] ALT, Plasma 16 10 - 50 U/L 11/07/2024 1:31 PM EDT [facility] Alkaline Phosphatase, Plasma 119(H) 40 - 115 U/L 11/07/2024 1:31 PM EDT [facility] Total Bilirubin, Plasma <0.2(L) 0.2 - 1.1 mg/dL 11/07/2024 1:31 PM EDT [facility] eGFRcr 92.3 mL/min/1.7 3m*2 11/07/2024 1:31 PM EDT [facility] Comment:Reported eGFRcr in m L/min/1.73m2 is based the CKD-EPI 2020 equation that does not use a race coefficient. Blood Venous blood specimen / Unknown Venipuncture / Unknown 11/07/2024 11:37 AM EDT 11/07/2024 12:23 PM EDT us Nathaly Nowak MD LAB BLOOD ORDERABLES Final Resu lt [facility] [address] [place] [address] * Type and Screen (11/07/2024 11:37 AM [...] ORDERABLES F inal Result Performing Organization Address City/[facility]/ZIP Co de Phone Number BLOOD BANK [address] * (ABNORMAL) POCT glucose meter (11/07/2024 [...] Comment 11/07/2024 10:36 AM EDT [facility] Semiconductor Processor ID Joy Iraheta 11/07/2024 10:36 AM EDT [facility] LAB Device ID [id number] 11/07/2024 10:36 AM EDT [facility] Specimen Type POC Capillary 11/07/2024 10:36 AM EDT [facility] Blood Capillary blood specimen / Unknown 11/07/2024 10:34 AM EDT 11/07/2024 10:36 AM EDT Nathaly Nowak MD LAB POINT OF CARE TE ST DOCKED DEVICE UNSOLICITED RESULTS Final Result Performing Organization Address City/[facility]/ZIP Co de Phone Number [facility] [address] [place] [address] * (ABNORMAL) POCT glucose meter (11/07/2024 9:34 [...] for testing. Comment 11/07/2024 9:36 AM EDT [facility] Semiconductor Processor ID Brigitte Castellon 11/07/2024 9:36 AM EDT [facility] LAB Device ID [id number] 11/07/2024 9:36 AM EDT [facility] Specimen Type POC Capillary 11/07/2024 9:36 AM EDT [facility] Blood Capillary blood specimen / Unknown 11/07/2024 9:34 AM EDT 11/07/2024 9:36 AM EDT Nathaly Nowak MD LAB POINT OF CARE TE ST DOCKED DEVICE UNSOLICITED RESULTS Final Result [facility] [address] [place] [address] * (ABNORMAL) POCT glucose meter (11/07/2024 8:20 AM EDT) [facility] POCT Glucose 137(H) 74 - 99 [...] 11/07/2024 8:22 AM EDT [facility] Semiconductor Processor ID Estefani Sheth 11/07/2024 8:22 AM EDT [facility] Device ID [id number] 11/07/2024 8:22 AM EDT [facility] Specimen Type POC Capillary 11/07/2024 8:22 AM EDT [facility] Blood Capillary blood specimen / Unknown 11/07/2024 8:20 AM EDT 11/07/2024 8:22 AM EDT Nathaly Nowak MD LAB POINT OF CARE TE ST DOCKED DEVICE UNSOLICITED RESULTS Final Result Performing Organization Address City/[facility] Co de Phone Number [facility] [address] [place] [address] * (ABNORMAL) POCT glucose meter (11/07/2024 7:21 [...] for testing. Comment 11/07/2024 7:22 AM EDT [facility] [employer] Processor ID Brigitte Castellon 11/07/2024 7:22 AM EDT [facility] Device ID [id number] 11/07/2024 7:22 AM EDT [facility] Specimen Type POC Capillary 11/07/2024 7:22 AM EDT [facility] Blood Capillary blood specimen / Unknown 11/07/2024 7:21 AM EDT 11/07/2024 7:22 AM EDT Nathaly Nowak MD LAB POINT OF CARE TE ST DOCKED DEVICE UNSOLICITED RESULTS Final Result Performing Organization Address City/[facility] Co de Phone Number [facility] [address] [place] [address] * (ABNORMAL) POCT glucose meter (11/07/2024 6:25 [...] 11/07/2024 6:27 AM EDT [facility] [employer] Processor ID Nelda Gerber 11/08/19 6:27 AM EDT [facility] Device ID [id number] 11/07/2024 6:27 AM EDT [facility] Specimen Type POC Capillary 11/07/2024 6:27 AM EDT [facility] Blood Capillary blood specimen / Unknown 11/07/2024 6:25 AM EDT 11/07/2024 6:27 AM EDT Nathaly Nowak MD LAB POINT OF CARE TE ST DOCKED DEVICE UNSOLICITED RESULTS Final Result Performing Organization Address [facility] de Phone Number [facility] [address] [place] [address] * (ABNORMAL) POCT glucose meter (11/07/2024 5:03 [...] Comment 11/07/2024 5:08 AM EDT [facility] [employer] Processor ID Nelda Gerber 11/08/19 5:08 AM EDT [facility] Device ID [id number] 11/07/2024 5:08 AM EDT [facility] Specimen Type POC Capillary 11/07/2024 5:08 AM EDT [facility] Blood Capillary blood specimen / Unknown 11/07/2024 5:03 AM EDT 11/07/2024 5:08 AM EDT Nathaly Nowak MD LAB POINT OF CARE TE ST DOCKED DEVICE UNSOLICITED RESULTS Final Result Performing Organization Address City/[facility] Co de Phone Number HEALTHCARE LAB [address] [place] [address] * (ABNORMAL) POCT glucose meter (11/07/2024 4:16 AM EDT) [facility] POCT Glucose 142(H) 74 - 99 [...] Comment 11/07/2024 4:18 AM EDT [facility]ALTHCARE [facility] Semiconductor Processor ID Nelda Gerber 11/08/19 4:18 AM EDT [facility] Device ID [id number] 11/07/2024 4:18 AM EDT [facility]ALTH[facility]ARE [facility] Specimen Type POC Capillary 11/07/2024 4:18 AM EDT [facility] Blood Capillary blood specimen / Unknown 11/07/2024 4:16 AM EDT 11/07/2024 4:18 AM EDT Nathaly Nowak MD LAB POINT OF CARE TE ST DOCKED DEVICE UNSOLICITED RESULTS Final Result [facility] [address] [place] [address] * (ABNORMAL) POCT glucose meter (11/07/2024 3:21 AM EDT) [facility] POCT Glucose 141(H) 74 - 99 [...] for testing. Comment 11/07/2024 3:23 AM EDT [facility] [employer]ductor Processor ID Nelda Gerber 11/08/19 3:23 AM EDT [facility] Device ID [id number] 11/07/2024 3:23 AM EDT [facility]ALTH[facility]ARE [facility] Specimen Type POC Capillary 11/07/2024 3:23 AM EDT [facility] Blood Capillary blood specimen / Unknown 11/07/2024 3:21 AM EDT 11/07/2024 3:23 AM EDT Nathaly Nowak MD LAB POINT OF CARE TE ST DOCKED DEVICE UNSOLICITED RESULTS Final Result Performing Organization Address City/[facility] Co de Phone Number HEALTHCARE LAB [address] [place] [address] * (ABNORMAL) POCT glucose meter (11/07/2024 2:10 [...] Comment 11/07/2024 2:12 AM EDT [facility]ARE [facility] Semiconductor Processor ID Nelda Gerber 11/08/19 2:12 AM EDT HEALTHCARE LAB Device ID [id number] 11/07/2024 2:12 AM EDT [facility]ALTHCARE LAB Specimen Type POC Capillary 11/07/2024 2:12 AM EDT [facility] Blood Capillary blood specimen / Unknown 11/07/2024 2:10 AM EDT 11/07/2024 2:12 AM EDT Nathaly Nowak MD LAB POINT OF CARE TE ST DOCKED DEVICE UNSOLICITED RESULTS Final Result Performing Organization Address City/[facility] Co de Phone Number HEALTHCARE LAB [address] [place] [address] * (ABNORMAL) POCT glucose meter (11/07/2024 1:08 [...] Comment 11/07/2024 1:10 AM EDT HEALTHCARE [facility] Semiconductor Processor ID Nelda Gerber 11/08/19 1:10 AM EDT HEALTHCARE LAB Device ID [id number] 11/07/2024 1:10 AM EDT HEALTHCARE LAB Specimen Type POC Capillary 11/07/2024 1:10 AM EDT [facility] Blood Capillary blood specimen / Unknown 11/07/2024 1:08 AM EDT 11/07/2024 1:10 AM EDT Nathaly Nowak MD LAB POINT OF CARE TE ST DOCKED DEVICE UNSOLICITED RESULTS Final Result Performing Organization Address City/State/[facility] Co de Phone Number HEALTHCARE LAB [address] [place] [address] * (ABNORMAL) POCT glucose meter (11/07/2024 12:10 AM EDT) [facility] POCT Glucose 127(H) 74 - 99 [...] Comment 11/07/2024 12:13 AM EDT HEALTHCARE [facility] Semiconductor Processor ID Nelda Gerber 11/08/19 12:13 AM EDT HEALTHCARE LAB Device ID [id number] 11/07/2024 12:13 AM EDT [facility]ALTH[facility]ARE [facility] Specimen Type POC Capillary 11/07/2024 12:13 AM EDT [facility]ALTH[facility]ARE [facility] Blood Capillary blood specimen / Unknown 11/07/2024 12:10 AM EDT 11/07/2024 12:13 AM EDT Nathaly Nowak MD LAB POINT OF CARE TE ST DOCKED DEVICE UNSOLICITED RESULTS Final Result Performing Organization Address City/[facility] Co de Phone Number HEALTHCARE LAB [address] [place] [address] * (ABNORMAL) POCT glucose meter (11/06/2024 11:14 PM EDT) Pathologist [facility] POCT Glucose 71(L) 74 - 99 [...] for testing. Comment 11/06/2024 11:16 PM EDT [facility] Semiconductor Processor ID Nelda Gerber 11/07/19 11:16 PM EDT [facility] Device ID [id number] 11/06/2024 11:16 PM EDT [facility] Specimen Type POC Capillary 11/06/2024 11:16 PM EDT [facility] Blood Capillary blood specimen / Unknown 11/06/2024 11:14 PM EDT 11/06/2024 11:16 PM EDT Nathaly Nowak MD LAB POINT OF CARE TE ST DOCKED DEVICE UNSOLICITED RESULTS Final Result Performing Organization Address City/[facility] Co de Phone Number [facility] [address] [place] [address] * (ABNORMAL) POCT glucose meter (11/06/2024 10:07 PM EDT) Pathologist [facility] POCT Glucose 140(H) 74 - 99 [...] Comment 11/06/2024 10:09 PM EDT HEALTHCARE [facility] Semiconductor Processor ID Nelda Gerber 11/07/19 10:09 PM EDT HEALTHCARE LAB Device ID [id number] 11/06/2024 10:09 PM EDT HEALTHCARE LAB Specimen Type POC Capillary 11/06/2024 10:09 PM EDT [facility] Blood Capillary blood specimen / Unknown 11/06/2024 10:07 PM EDT 11/06/2024 10:09 PM EDT Nathaly Nowak MD LAB POINT OF CARE TE ST DOCKED DEVICE UNSOLICITED RESULTS Final Result Performing Organization Address City/[facility] Co de Phone Number HEALTHCARE LAB [address] [place] [address] * (ABNORMAL) POCT glucose meter (11/06/2024 8:22 [...] Comment 11/06/2024 8:25 PM EDT [facility]ARE [facility] Semiconductor Processor ID Nelda Gerber 11/07/19 8:25 PM EDT HE[facility]ARE LAB Device ID [id number] 11/06/2024 8:25 PM EDT [facility]ARE [facility] Specimen Type POC Capillary 11/06/2024 8:25 PM EDT [facility] Blood Capillary blood specimen / Unknown 11/06/2024 8:22 PM EDT 11/06/2024 8:25 PM EDT us Nathaly Nowak MD LAB POINT OF CARE TE ST DOCKED DEVICE UNSOLICITED RESULTS Final Result Performing Organization Address City/[facility]/ZIP Co de Phone Number HEALTHCARE [facility] [address] [place] [address] * (ABNORMAL) POCT glucose meter (11/06/2024 7:31 PM EDT) Pathologist [facility] POCT Glucose 359(H) 74 - 99 [...] Comment 11/06/2024 7:32 PM EDT [facility]ALTH[facility]ARE [facility] Semiconductor Processor ID Nelda Gerber 11/07/19 7:32 PM EDT [facility]ALTH[facility]ARE LAB Device ID [id number] 11/06/2024 7:32 PM EDT HEALTHCARE LAB Specimen Type POC Capillary 11/06/2024 7:32 PM EDT [facility] Blood Capillary blood specimen / Unknown 11/06/2024 7:31 PM EDT 11/06/2024 7:32 PM EDT us Nathaly Nowak MD LAB POINT OF CARE TE ST DOCKED DEVICE UNSOLICITED RESULTS Final Result Performing Organization Address City/State/[facility] Co de Phone Number [facility] [address] [place] [address] * (ABNORMAL) POCT glucose meter (11/06/2024 6:15 PM EDT) [facility] POCT Glucose 368(H) 74 - 99 [...] Comment 11/06/2024 6:17 PM EDT HEALTHCARE [facility] Semiconductor Processor ID Estefani Sheth 11/06/2024 6:17 PM EDT [facility] Device ID [id number] 11/06/2024 6:17 PM EDT HEALTH[facility]ARE [facility] Specimen Type POC Capillary 11/06/2024 6:17 PM EDT [facility] Blood Capillary blood specimen / Unknown 11/06/2024 6:15 PM EDT 11/06/2024 6:17 PM EDT Nathaly Nowak MD LAB POINT OF CARE TE ST DOCKED DEVICE UNSOLICITED RESULTS Final Result Performing Organization Address City/[facility]/ZIP Co de Phone Number HEALTHCARE [facility] [address] [place] [address] * (ABNORMAL) POCT glucose meter (11/06/2024 4:57 [...] Comment 11/06/2024 4:58 PM EDT HEALTHCARE [facility] Semiconductor Processor ID Estefani Sheth 11/06/2024 4:58 PM EDT HEALTHCARE LAB Device ID [id number] 11/06/2024 4:58 PM EDT [facility] Specimen Type POC Capillary 11/06/2024 4:58 PM EDT [facility] Blood Capillary blood specimen / Unknown 11/06/2024 4:57 PM EDT 11/06/2024 4:58 PM EDT us Nathaly Nowak MD LAB POINT OF CARE TE ST DOCKED DEVICE UNSOLICITED RESULTS Final Result Performing Organization Address City/[facility]/ZIP Co de Phone Number [facility]CARE [facility] [address] [place] [address] * (ABNORMAL) POCT glucose meter (11/06/2024 2:08 [...] Comment 11/06/2024 2:09 PM EDT HEALTHCARE [facility] Semiconductor Processor ID Brigitte Castellon 11/06/2024 2:09 PM EDT HEALTHCARE LAB Device ID [id number] 11/06/2024 2:09 PM EDT HEALTHCARE LAB Specimen Type POC Capillary 11/06/2024 2:09 PM EDT [facility] Blood Capillary blood specimen / Unknown 11/06/2024 2:08 PM EDT 11/06/2024 2:09 PM EDT us Nathaly Nowak MD LAB POINT OF CARE TE ST DOCKED DEVICE UNSOLICITED RESULTS Final Result Performing Organization Address City/State/[facility] Co de Phone Number HEALTHCARE LAB [address] [place] [address] * (ABNORMAL) POCT glucose meter (11/06/2024 12:27 [...] Comment 11/06/2024 12:28 PM EDT HEALTHCARE [facility] Semiconductor Processor ID Jacinta Galloway 11/06/2024 12:28 PM EDT HEALTHCARE LAB Device ID [id number] 11/06/2024 12:28 PM EDT HEALTHCARE LAB Specimen Type POC Capillary 11/06/2024 12:28 PM EDT [facility] Blood Capillary blood specimen / Unknown 11/06/2024 12:27 PM EDT 11/06/2024 12:28 PM EDT us Nathaly Nowak MD LAB POINT OF CARE TE ST DOCKED DEVICE UNSOLICITED RESULTS Final Result [facility] [address] [place] [address] * (ABNORMAL) Tissue Culture and Gram Stain (11/06/2024 11:34 AM EDT) Culture Moderate Growth 7:35 AM EDT [facility] Culture 2+ Enterobacter cloacae complex(A) ANGÉLICA 11/15/2024 7:35 AM EDT [facility] Comment: This isolate has been identified using the FDA Approved [employer] System The organism value for this result has been updated. These results have been appended to the previously preliminary verified report. Edited result: Previously reported as Gram Negative Jesus on 11/07/2024 at 1434 EDT. Culture 2+ Streptococcus mitis/oralis group(A) ANGÉLICA 11/15/2024 7:35 AM EDT [facility] Comment: This isolate has been identified using the FDA Approved [employer] [place] System The organism value for this result has been updated. These results have been appended to the previously preliminary verified report. Culture 2+ Pasteurella stomatis(A) ANGÉLICA 11/15/2024 7:35 AM EDT [facility] Comment: This result was determined by MALDI tof mass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
--- OUTSIDE RECORDS SUMMARY | 2024-11-06 10:47 | XMS_ITS | Encounter Summary ---
Author Organization Healthcare Address [address] [place] [address] Care Team Providers Care Firearms Sales Associate Name Role Phone Asad Victor MD Primary Care Provider + [phone] Reason for Visit * Auth/Cert (Routine) Specialty Diagnoses / Procedures Referred By Contac t Referred To Contact Diagnoses Wound infection Post-op Vasc Sx wounds - sx on 10/17 at Nathaly Nowak MD [address] [facility] [address] [place] [address] Phone: tel: fax: [facility] [address] [place] [address] Phone: tel: Referral ID Status Reason Start Date Expiration Date Visits Re quested Visits Authorized [id number] 1 1 Encounter Details Date Type Department Care Team (Late st Contact Info) Description 11/06/2024 10:47 AM EDT Anesthesia Event [facility] [address] [place] [address] Bill Sue MD [address] [place] [address] Sabrina Mckeon PA [address] [facility] [address] [place] [address] Anesthesia Record Procedure Summary Procedure Name Responsible Anesthesiologist Anesthesia Start Time Anesthesia Stop Time Left groin exploration and washout, possible wound vac placement (Left: Groin) Bill Sue MD 11/06/24 1047 11/06/24 1211 Events Date Time Event Comment 11/06/2024 1047 In Room 1047 An Start The patient was reevaluated immediately before sedation and remains eligible for anesthesia plan. 1047 An Start Data 1053 Sonu Patient reporti ng need to void on arrival to OR, offered urinal but patient refused to use. Surgical team aware, will consider straight cath post op. 1055 An Induction The patient was reevaluated immediately before moderate or deep sedation use and before anesthesia induction. 1058 An Intubation 1100 Anesthesia Ready 1123 Proc Start 1150 An Extubation 1150 Proc Fin 1152 Sonu Masking for str aight cath 1159 an stop data 1203 Out of Room 1211 Handoff to Receiving I compl eted my handoff to the receiving clinician during which we: 1. Identified the patient 2. Identified the responsible provider 3. Reviewed the pertinent medical history 4. Discussed the surgical course 5. Reviewed intra-op anesthesia management and issues during anesthesia 6. Set expectations for post-procedure period 7. Allowed opportunity for questions and acknowledgement of understanding. 1211 An Stop Meds Name Total rocuronium (ZeMuron) injection 10 mg/mL 50 mg ePHEDrine injection prefilled syringe 5 mg/mL 10 mg propofol (Diprivan) injection 10 mg/mL 2 00 mg fentaNYL (Sublimaze) injection 50 mcg/mL 200 mcg sugammadex (Bridion) injection 100 mg/mL 100 mg lidocaine PF (Xylocaine-MPF) 2% 100 mg ondansetron (Zofran) injection 4 mg dexamethasone (Decadron) injection 4 mg/ mL 4 mg dexmedetomidine (Precedex) injection 100 mcg/mL 8 mcg lactated Ringer's infusion 500 mL lactated Ringer's infusion 0 mL * Agents No agents on file. * Blood No blood administrations on file. Lines, Drains, and Airways Type Details Placement Removal Wound 10/17/24; 0856; Yes; Surgical; Open Surg; Groin; Left 10/17/24 0856 by Donna Mcmlilan RN Wound 10/17/24; 0900; Yes; Surgical; Open Surg; Left, Lower 10/17/24 0900 by Donna Mcmillan RN Peripheral IV Placement Date: 10/25 05/21; Placement Time: 2138; Orientation: Anterior, Distal, Right, Upper; Location: Arm; Removal Date: 11/06/24; Removal Time: 1520; Removal Reason: Leaking 11/05/24 2139 by Raj Laird RN 11/06/24 1520 by Brigitte Castellon RN Peripheral IV Placement Date: 10/25 06/18; Placement Time: 0816; Catheter Size: 22 G; Orientation: Posterior, Right; Location: Hand; Removal Date: 11/08/24; Removal Time: 1139; Removal Reason: Leaking 11/06/24 0816 by Es Garcia RN 11/08/24 1139 by Brigitte Castellon RN ETT Placement Date: 10/25 06/18; Placement Time: 1058 (created via procedure documentation); Mask Ventilation: 2; Technique: Direct laryngoscopy; Type: ETT - single; Single Lumen Tube Size: 8 mm; Cuffed: Yes; Laryngoscope: Prince; Blade Size: 4; Location: Oral; Grade View: Grade I; Insertion Attempts: 1; Placement Verification: Auscultation, Capnometry; Airway Comments: Smooth IV induction. Easy mask w/ OPA. Easy intubation. Atraumatic. No change to dentition. ; Placed by: ISH; Removal Date: 11/06/24; Removal Time: 1150 11/06/24 1058 by Asad Lechuga CRNA, DNP 11/06/24 1150 by Asad Lechuga CRNA, DNP documented in this encounter Social History Tobacco [...] time in the past 12 m [facility], were you homeless or living [...] first t dino in the morning ([employer]) to steady your nerves or to get [...] (Past 1 Month) No 025 9:47 AM EDT Giovanna Reza RN 2. Non-Specific Active Suici marcelle Thoughts (Past 1 Month) No 11/06/2024 9:47 AM EDT Svitlana Reza RN 6. Suicidal Behavior (Lifetime) No 9:47 AM EDT Giovanna Reza RN documented as of this encounter Miscellaneous Notes * Anesthesia Postprocedure Evaluation - Asda Lechuga CRNA, DNP - 11/06/2024 12:11 PM EDT Patient: Mono Bobby Anesthesia Type: general Vitals Value Taken Time BP 139/62 11/06/24 12:06 Temp 97.7 11/06/24 12:11 Pulse 75 11/06/24 12:10 Resp 19 11/06/24 12:10 SpO2 95 % 11/06/24 12:10 Vitals shown include unfiled device data. Anesthesia Post Evaluation Patient location during evaluation: PACU Patient participation: complete - patient participated Level of consciousness: awake Pain management: adequate (pain score 0-3) Airway patency: natural airway Cardiovascular status: acceptable and hemodynamically stable Respiratory status: acceptable, blow-by oxygen and spontaneous ventilation Hydration status: acceptable Nausea/Vomiting: No Comments: Agitated on emergence, required period of masking with Sevo while dressing reinforced andcatheterized. Precedex given with resolution of agitation. In PACU VSS, NAD, report given at bedside to RN. No notable events documented. * Anesthesia Procedure Notes - Asad Lechuga CRNA, DNP - 11/06/2024 11:04 AM EDTAssociated Order(s): Airway Airway Date/Time: 11/06/2024 10:58 AM Reason: elective Airway not difficult General Information and Staff Patient location during procedure: OR MOSS GATHERER: Asad Lechuga CRNA, DNP Performed: MOSS GATHERER Patient Condition Indications for airway management: anesthesia Patient position: sniffing Final Airway Details Final airway type: endotracheal airway Successful airway: ETT Cuffed: yes Successful intubation technique: direct laryngoscopy Adjuncts used in placement: intubating stylet Endotracheal tube insertion site: oral Blade: Prince Blade size: #4 ETT size (mm): 8.0 Cormack-Lehane Classification: grade I - full view of glottis Placement verified by: chest auscultation and capnometry Measured from: lips ETT to lips (cm): 23 Additional Comments Smooth IV induction. Easy mask w/ OPA. Easy intubation. Atraumatic. No change to dentition. * Anesthesia Preprocedure Evaluation - Bill Sue MD - 11/06/2024 8:54 AM EDT Procedure Information Date/Time: 11/06/24 1008 Procedure: Left groin exploration and washout, possible wound vac placement (Left) Location: [facility] OR 16 / [facility] Surgeons: Nathaly Nowak MD [facility] Mono Ana Bobby is a 64 y.o. male with body mass index is 30.56 kg/m??. 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 It did show wound with gas and fluid in the groin and knee and a 3 x 3 cm possible collection in theleft groin. Now for above procedure. PMH: COPD, CAD s/p CABG/ PCI on Xarelto, Atrial Fibrillation with RVR s/p CABG, s/p pacemaker c/b left SANDIP pseudoaneurysm s/p thrombin injection 09/21/24, chronic limb ischemia s/p left femoral endarterectomy with external iliac/common femoral artery stenting 10/17/24, T2DM, HLD, HTN, RLS, BPH, CKD, carotid artery disease s/p R CEA 2016 Last dose Xarelto: 8/12 AM AIRWAY HISTORY: Date Difficult Airway Blade Size ETT Size C-L Class Final Type Intubation Method 10/17/24 No 3 7.5 grade IIa - partial view of glottis endotracheal airway direct laryngoscopy NPO STATUS: since MN Activity Level/METS: borderline 4 mets, He walks with a walker. He can do light housework, cooking. Type & Screen Expires: REORDERED Lab Results Component Value Date ABO A Negative 10/17/2024 ALLERGIES Allergies[1] MEDICATIONS Outpatient Current Outpatient Medications Medication Instructions clopidogrel (PLAVIX) 75 mg, Oral, Daily docusate sodium (COLACE) 100 mg, Daily insulin glargine (LANTUS) 28 Units, Nightly insulin lispro protamine-insulin lispro (HumaLOG Mix 75-25) (75-25) 100 UNIT/ML injection vial 12 Units, Subcutaneous, 2 times daily with meals insulin lispro protamine-insulin lispro (HumaLOG Mix 75-25) (75-25) 100 UNIT/ML injection vial 15 Units, Subcutaneous, 2 times daily with meals lisinopril 10 mg, Daily metoprolol tartrate (LOPRESSOR) 100 mg, 2 times daily ondansetron ODT (ZOFRAN-ODT) 4 mg, Oral, Every 6 hours PRN oxyCODONE (ROXICODONE) 5 mg, Oral, Every 4 hours PRN pravastatin (PRAVACHOL) 40 mg, Nightly rivaroxaban (XARELTO) 20 mg, Oral, Daily with dinner, Take with food. rOPINIRole (REQUIP) 2 mg, Oral, 2 times daily tamsulosin (FLOMAX) 0.4 mg, Every evening Scheduled Current Scheduled Medications[2] PRNs Current PRN Medications[3] SURGICAL HX: Surgical History[4] SOCIAL HX: Social History[5] OBJECTIVE DATA Blood pressure 114/67, pulse 97, temperature 36.6 ??C (97.9 ??F), temperature source Oral, resp. rate 18, height 1.702 m (5' 7 ), weight 88.5 kg (195 lb 1.7 oz), SpO2 97%. LABS Lab Results Component Value Date WBC 9.70 11/06/2024 HGB 8.8 (L) 11/06/2024 HCT 26.2 (L) 11/06/2024 MCV 91 11/06/2024 PLT 542 (H) 11/06/2024 Lab Results Component Value Date CALCIUM 9.0 11/06/2024 BUN 20 11/06/2024 CREATININE 0.92 11/06/2024 BCR 22 11/06/2024 NA 136 11/06/2024 K 4.5 11/06/2024 CL 104 11/06/2024 CO2 22 11/06/2024 ANIONGAP 10 11/06/2024 No results found for: APTT , INR Lab Results Component Value Date HGBA1C 13.0 (H) 02/26/2019 GLUCOSE 207 (H) 11/06/2024 EKG Encounter Date: 09/20/24 ECG Adult Result Value EKG DIAGNOSIS CLASS Abnormal Ventricular Rate 85 Atrial Rate 85 KS Interval 146 QRSD Interval 128 QT Interval 390 QTC Interval 464 P [place] 52 R [place] 263 T Wave [place] 57 Diagnosis Atrial-sensed ventricular-paced rhythm Diagnosis Biventricular pacemaker detected Diagnosis Diagnosis Diagnosis Confirmed by Sana Ruth ([id number]) on 09/22/2024 11:34:36 PM *Note: Due to a large number of results and/or encounters for the requested time period, some results have not been displayed. A complete set of results can be found in Results Review. ECHO 2021 Left Ventricle: The left ventricular systolic function is mildly reduced.The LVEF is visually estimated at 40 - 50%. The diastolic function is abnormal. There is grade II diastolic dysfunction. Mitral Valve: The structure and motion of the mitral valve leaflet suggest that the MR etiology is most likely due to type IIIb (systolic restriction - symmetric) Fabi classification. Right Ventricle: Right ventricle size is normal. The right ventricular systolic function is normal.The estimated RVSP is 36 mmHg. Pericardium: No pericardial effusion. There is no recent study available for direct xawq-ty-cnmi comparison. [facility]: Pre-operative CIED Report Assessment and Sara- Procedural Reommendations: Name: Mono Bobby Date: 10/17/2024 : 1960 Age: 64 y.o. 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 Lead integrity [...] can be found in EPIC media file. Physical Exam Airway Mallampati: IV Mouth opening: normal Cardiovascular Rhythm: regular Rate: normal Dental (+) edentulous Pulmonary (+) decreased breath sounds Neurological Oriented: normal to time, normal to place and normal to person Skin Musculoskeletal Extremities Anesthesia Plan ASA 3 Anesthesia technique(s) discussed with the patient/family: general Anesthesia plan agreed upon was: general ROS Anesthesia: Date of last anesthetic: 10/17/24 No GA issues. history of previous anesthesia. Does not have a history of anesthetic complications, obstructive sleep apnea and PONV. 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 Does not have angina, CHF, murmur, orthopnea, syncope or valvular heart disease. hypertension: Cardio additional comments: Follows with OSH Card last seen 09/25/24 ([place]) . Respiratory: home oxygen (2L). no asthma: COPD: HEENT: missing teeth.Does not have difficulty swallowing. HEENT additional comments: + edentulous. Neurological: no seizures: Did not have a cerebrovascular accident.Does not have TIA. Musculoskeletal: arthritis. Does not have cervical spine limited mobility. Gastrointestinal: GERD:Does not have hernia or PUD. Does not have cirrhosis or hepatitis. GI/ additional comments: Genitourinary: chronic renal disease: CRIBPH. Does not have renal calculi. Hematological/Lymphatic: anemia. History of no DVT. History of no pulmonary embolism. no history of chemotherapy no history of radiation Endocrine/Metabolic: diabetes mellitus type 2. A1C 7.7% Does not have thyroid disorder. Does not have hypoglycemia. [1] No Known Allergies [2] acetaminophen, 1,000 mg, Oral, q6h JUAN ceFAZolin, 2 g, Intravenous, Once insulin regular, 0-5 Units, Subcutaneous, q6h JUAN methocarbamol, 500 mg, Oral, 4x daily metoprolol tartrate, 100 mg, Oral, BID piperacillin-tazobactam, 4.5 g, Intravenous, q6h Povidone-Iodine, 1 Application, Nasal, Once pravastatin, 40 mg, Oral, Nightly rOPINIRole, 2 mg, Oral, BID Insert peripheral IV, , , Once AND Saline lock IV, , , Once AND sodium chloride, 10 mL, Intravenous, q12h AND sodium chloride, 10 mL, Intravenous, PRN Insert peripheral IV, , , Once AND Saline lock IV, , , Once AND sodium chloride, 10 mL, Intravenous, q12h AND sodium chloride, 10 mL, Intravenous, PRN tamsulosin, 0.4 mg, Oral, q PM vancomycin, 1,250 mg, Intravenous, q12h [3] PRN medications: glucose OR dextrose 10 % OR dextrose 10 % OR glucagon (human recombinant), ondansetron ODT OR ondansetron OR ondansetron, oxyCODONE OR oxyCODONE, Insert peripheral IV AND Saline lock IV AND sodium chloride AND sodium chloride, Insert peripheral IV AND Saline lock IV AND sodium chloride AND sodium chloride [4] Past Surgical History: Procedure Laterality Date ANKLE SURGERY Right CARDIAC PACEMAKER PLACEMENT CAROTID ENDARTERECTOMY N/A 2017 Endarterectomy Carotid Artery from [employer] CORONARY ANGIOPLASTY Left Coronary Angiography With Concomitant Left Heart Catheterization from [employer] CORONARY ARTERY BYPASS GRAFT N/A 2018 3V ELBOW SURGERY Right ENDARTERECTOMY Left 10/17/2024 common/SFA/Profunda thromboendarterectomy, EIA/MED ADMIN stent HERNIA REPAIR KNEE ARTHROSCOPY Left VASCULAR SURGERY Left 09/21/2024 MED ADMIN pseudoaneurym injection [5] Social History Tobacco Use Smoking status: Former Types: Cigarettes Passive exposure: Past Smokeless tobacco: Never Tobacco comments: Smoked 1-2 PPD for at least 30 years. Quit 2017 Vaping Use Vaping status: Never Used Substance Use Topics Alcohol use: Not Currently Comment: holidays/special occasions Drug use: Yes Types: Marijuana Comment: daily marijuana, 1-2 blunts/day documented in this encounter Plan of Treatment Upcoming Encounters Date Type Department Care Team (Late st Contact Info) Description 11/26/2024 2:00 PM EDT Hospital Encounter [facility] [address] [place] [address] 11/26/2024 2:30 PM EDT Hospital Encounter [facility] [address] [place] [address] 11/26/2024 3:20 PM EDT Office Visit [facility] [address] [place] [address] Elisabet Schuster PA [address] [facility] [address] [place] [address] 11/29/2024 2:30 PM EDT Office Visit [id number] [place] [address] Oscar Appiah MD [address] [facility] [address] [place] [address] documented as of this encounter Goals Goal Patient Goal Type Associated Problems Recent Progress Patient-Stated? Author Autogenera louise Goal Care Plan Autogenerated Problem No Ekta Arnett documented as of this encounter Procedures Procedure Name Priority Date/Time Associated Diagnosis Comments PB ANESTHESIA PLACEHOLDER Routine 11/06/2024 10:58 AM EDT KS AN ELECTIVE ENDOTRACHEAL AIRWAY Routine 11/06/2024 10:58 AM EDT documented in this encounter Results * KS AN ELECTIVE ENDOTRACHEAL AIRWAY, PB ANESTHESIA PLACEHOLDER (11/06/2024 10:58 AM EDT) Narrative Asad Lechuga CRNA, DNP - 11/06/2024 10:58 AM EDT Asad Lechuga CRNA, DNP 11/06/2024 11:05 AM Airway Date/Time: 11/06/2024 10:58 AM Reason: elective Airway not difficult General Information and Staff Patient location during procedure: OR MOSS GATHERER: Asad Lechuga CRNA, DNP Performed: ISH Patient Condition Indications for airway management: anesthesia Patient position: sniffing Final Airway Details Final airway type: endotracheal airway Successful airway: ETT Cuffed: yes Successful intubation technique: direct laryngoscopy Adjuncts used in placement: intubating stylet Endotracheal tube insertion site: oral Blade: Prince Blade size: #4 ETT size (mm): 8.0 Cormack-Lehane Classification: grade I - full view of glottis Placement verified by: chest auscultation and capnometry Measured from: lips ETT to lips (cm): 23 Additional Comments Smooth IV induction. Easy mask w/ OPA. Easy intubation. Atraumatic. No change to dentition. us Bill Sue MD ANESTHESIA ORDERABLES Final Re sult documented in this encounter Visit Diagnoses Not on filedocumented in this encounter Administered Medications Inactive Administered Medications - up to 3 most recent administrations Medication Order MAR Action Action Date Dose Rate Site dexamethasone (Decadron) injection Intravenous, As needed, Starting on Mon11/06/24 at 1107, Until Mon11/06/24 at 1211, Routine, Anesthesia Intraprocedure Given 11/06/2024 11:07 AM EDT 4 mg dexmedetomidine (Precedex) 100 MCG/ML concentrated solution Intravenous, As needed, Starting on Mon11/06/24 at 1157, Until Mon11/06/24 at 1211, Routine, Anesthesia Intraprocedure Given 11/06/2024 11:57 AM EDT 8 mcg ePHEDrine Sulfate (Akovaz) injection Intravenous, As needed, Starting on Mon11/06/24 at 1106, Until Mon11/06/24 at 1211, Routine, Anesthesia Intraprocedure Given 11/06/2024 11:06 AM EDT 10 mg fentaNYL (Sublimaze) injection Intravenous, As needed, Starting on Mon11/06/24 at 1053, Until Mon11/06/24 at 1211, Routine, Anesthesia Intraprocedure Given 11/06/2024 12:02 PM EDT 100 mcg Given 11/06/2024 11:20 AM EDT 50 mcg Given 11/06/2024 10:53 AM EDT 50 mcg lactated Ringer's infusion 84 mL/hr, Intravenous, Continuous, Starting on Mon11/06/24 at 0040, Until Mon11/06/24 at 1206, Routine Continued by Anesthesia 11/06/2024 10:47 AM EDT 84 mL/hr New Bag 11/06/2024 1:40 AM EDT 84 mL/hr 84 mL/hr lactated Ringer's infusion Intravenous, Continuous PRN, Starting on Mon11/06/24 at 1047, Until Mon11/06/24 at 1211, Routine New Bag 11/06/2024 10:47 AM EDT lidocaine PF (Xylocaine) 2 % injection Intravenous, As needed, Starting on Mon11/06/24 at 1055, Until Mon11/06/24 at 1211, Routine, Anesthesia Intraprocedure Given 11/06/2024 10:55 AM EDT 10 0 mg ondansetron (Zofran) injection Intravenous, As needed, Starting on Mon11/06/24 at 1136, Until Mon11/06/24 at 1211, Routine, Anesthesia Intraprocedure Given 11/06/2024 11:36 AM EDT 4 mg propofol (Diprivan) injection Intravenous, As needed, Starting on Mon11/06/24 at 1055, Until Mon11/06/24 at 1211, Routine, Anesthesia Intraprocedure Given 11/06/2024 11:26 AM EDT 50 mg Given 11/06/2024 11:20 AM EDT 30 mg Given 11/06/2024 10:55 AM EDT 120 mg rocuronium (ZeMuron) injection Intravenous, As needed, Starting on Mon11/06/24 at 1056, Until Mon11/06/24 at 1211, Routine, Anesthesia Intraprocedure Given 11/06/2024 10:56 AM EDT 50 mg sugammadex (Bridion) 100 MG/ML injection Intravenous, As needed, Starting on Mon11/06/24 at 1138, Until Mon11/06/24 at 1211, Routine, Anesthesia Intraprocedure Given 11/06/2024 11:38 AM EDT 100 mg documented in this encounter Additional Health Concerns Active Problems Noted Date Diagnosed Date Autogenerated Problem 09/23/2024 Assessment Noted Time A Body Mass Index follow-up plan has been documented for the patient 11/14/2024 3:04 PM EDT documented as of this encounter Care Teams Firearms Sales Associate Relationship Specialty Start Date End Date Asad Victor MD [address] [place] [address] PCP - General 10/07/22 documented as of this encounter
--- OUTSIDE RECORDS SUMMARY | 2024-11-18 13:10 | XMS_ITS | Encounter Summary ---
Author Organization [employer] ([place], [place], [place], [place]) Address [address] [place] [address] Care Team Providers Care Director Employment Name Role Phone Unavailable Primary Care Provider Unavailabl e Reason for Visit * Reason Comments Wound Care Encounter Details Date Type Department Care Team (Late st Contact Info) Description 11/18/2024 1:10 PM EDT Office Visit [facility] 1 [place] [address] Jerry Monroe Jr., MD [address] [place] [address] Non-pressure chronic ulcer of skin of [...] health nurse( if you have home health) [facility] for an appointment. documented in this encounter [...] upper leg. Patient was admitted to the [facility] on November 05, 2024 and [...] line. Patient is getting daily infusions at [facility] through his PICC line for antibiotics. [...] provider verified the correct patient, procedure, equipment, account support analyst, and site/side marked as required. [...] provider verified the correct patient, procedure, equipment, account support analyst, and site/side marked as required. [...] Care Team (Late st Contact Info) Description 11/22/2024 4:15 PM EDT Clinical Support [address] [address] 11/27/2024 2:20 PM EDT Office Visit [address] [address] Jerry Monroe Jr., MD [address] [place] [address] 11/29/2024 4:00 PM EDT Clinical Support [address] [address] 12/02/2024 2:15 PM EDT Clinical Support [address] [address] 12/04/2024 3:10 PM EDT Office Visit [address] [address] Jerry Monroe Jr., MD [address] [place] [address] 12/06/2024 4:15 PM EDT Clinical Support [address] [address] 12/09/2024 3:30 PM EDT Clinical Support [address] [address] 12/11/2024 2:40 PM EDT Office Visit [facility] 1 [place] [address] Jerry Monroe Jr., MD [address] [place] [address] 12/13/2024 3:30 PM EDT Clinical Support [facility] 1 [place] [address] 12/16/2024 3:30 PM EDT Clinical Support [facility] 1 [place] [address] 12/18/2024 3:00 PM EDT Office Visit [facility] [place] 1 [place] [address] Jerry Monroe Jr., MD [address] [place] [address] 12/20/2024 3:30 PM EDT Clinical Support [facility] 1 [place] [address] documented as of this encounter Procedures Procedure Name Priority Date/Time Associated Diagnosis Comments NC DEBRIDEMENT MUSCLE &/FASCIA EA ADDL 20 SQ CM Routine 11/18/2024 1:10 PM EDT 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) Localized tissue (HCC) Other specified local infections of the skin and subcutaneous tissue NC DEBRIDEMENT MUSCLE &/FASCIA EA ADDL 20 SQ CM Routine 11/18/2024 1:10 PM EDT 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) Localized tissue (HCC) Other specified local infections of the skin and subcutaneous tissue NC DEBRIDEMENT MUSCLE &/FASCIA 1ST 20 SQ CM/< Routine 11/18/2024 1:10 PM EDT 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) Localized tissue (HCC) Other specified local infections of the skin and subcutaneous tissue NC DEBRIDEMENT MUSCLE &/FASCIA EA ADDL 20 SQ CM Routine 11/18/2024 1:10 PM EDT 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) Localized tissue (HCC) Other specified local infections of the skin and subcutaneous tissue NC DEBRIDEMENT MUSCLE &/FASCIA EA ADDL 20 SQ CM Routine 11/18/2024 1:10 PM EDT 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) Localized tissue (HCC) Other specified local infections of the skin and subcutaneous tissue NC DEBRIDEMENT MUSCLE &/FASCIA 1ST 20 SQ CM/< Routine 11/18/2024 1:10 PM EDT 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 [...] MD PROCEDURE/MINOR SURGICAL ORDERABLES Final Result * NC DEBRIDEMENT MUSCLE &/FASCIA 1ST 20 SQ CM/<, [place] DEBRIDEMENT MUSCLE &/FASCIA EA ADDL 20SQ CM, [place] DEBRIDEMENT MUSCLE &/FASCIA EA ADDL 20 SQ [...] provider verified the correct patient, procedure, equipment, account support analyst, and site/side marked as required. [...]
--- OUTSIDE RECORDS SUMMARY | 2024-11-20 14:15 | XMS_ITS | Encounter Summary ---
Author Organization [employer] ([place], [place], [place], [place]) Address [address] [place] [address] Care Team Providers Care Financial Report Service Sales Agent Name Role Phone Unavailable Primary Care Provider Unavailabl e Reason for Visit * Reason Comments Wound Care Nurse visit for woun d vac change, wound care and dressing change Encounter Details Date Type Department Care Team (Latest Contact Info) Description 11/20/2024 2:15 PM EDT Clinical Support [facility] [address] [place] [address] Non-pressure chronic ulcer of skin of other [...] 30 % Non-staged Wound Description Full thickness documented in this encounter Plan of Treatment Upcoming Encounters Date Type Department Care Team (Late st Contact Info) Description 11/22/2024 4:15 PM EDT Clinical Support [facility] [place] 1 [place] [address] 11/27/2024 2:20 PM EDT Office Visit [facility] 1 [place] [address] Jerry Monroe Jr., MD [address] [place] [address] 11/29/2024 4:00 PM EDT Clinical Support [facility] 1 [place] [address] 12/02/2024 2:15 PM EDT Clinical Support [facility] 1 [place] [address] 12/04/2024 3:10 PM EDT Office Visit [facility] 1 [place] [address] Jerry Monroe Jr., MD [address] [place] [address] 12/06/2024 4:15 PM EDT Clinical Support [facility] 1 [place] [address] 12/09/2024 3:30 PM EDT Clinical Support [facility] [place] 1 [place] [address] 12/11/2024 2:40 PM EDT Office Visit [facility] [place] 1 [place] [address] Jerry Monroe Jr., MD [address] [place] [address] 12/13/2024 3:30 PM EDT Clinical Support [facility] [place] 1 [place] [address] 12/16/2024 3:30 PM EDT Clinical Support [facility] [place] 1 [place] [address] 12/18/2024 3:00 PM EDT Office Visit [facility] 1 [place] [address] Jerry Monroe Jr., MD [address] [place] [address] 12/20/2024 3:30 PM EDT Clinical Support [facility] [place] 1 [place] [address] documented as of this encounter Visit Diagnoses Diagnosis 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
--- OUTSIDE RECORDS SUMMARY | 2024-11-21 08:07 | XMS_ITS | Encounter Summary ---
Author Organization Healthcare Address [address] [place] [address] Care Team Providers Care Assurance Engineer Name Role Phone Asad Victor MD Primary Care Provider + [phone] Encounter Details Date Type Department Care Team (Late st Contact Info) Description 09/21/2024 Orders Only External Location [address] [place] [address] Provider, External Social History Tobacco Use Types [...] drink first t dino in the morning (EYE-GENERAL OPERATOR) to steady your nerves or to [...] Description 11/26/2024 2:00 PM EDT Hospital Encounter [facility] [address] [place] [address] 11/26/2024 2:30 PM EDT Hospital Encounter [facility] [address] [place] [address] 11/26/2024 3:20 PM EDT Office Visit [facility] [address] [facility] 5th Floor Wing [address] [place] [address] Elisabet Schuster PA [address] [facility] [address] [place] [address] 11/29/2024 2:30 PM EDT Office Visit [place] [address] [place] [address] [place] [address] [place] [address] [address] [place] [address] documented as of this encounter [...] documented as of this encounter Care Teams Assurance Engineer Relationship Specialty Start Date End Date Asad Victor MD [address] [place] [address] PCP - General 10/07/22 documented as of this encounter
--- OUTSIDE RECORDS SUMMARY | 2024-11-21 08:07 | XMS_ITS | Encounter Summary ---
Author Organization [facility] Address [address] [place] [address] Care Team Providers Care Public Affairs Director Name Role Phone Asad Victor MD Primary Care Provider + [phone] Encounter Details Date Type Department Care Team (Late st Contact Info) Description 09/20/2024 Orders Only External Location [address] [place] [address] Timothy Marques PA [address] [place] [id number] Social History Tobacco Use Types Packs/Day Years [...] drink first t dino in the morning (EYE-PERFORMANCE CONSULTANT) to steady your nerves or to [...] [facility] [address] [facility] 5th Floor Wing [address] [place] [address] 11/26/2024 2:30 PM EDT Hospital Encounter [facility] [address] [facility] 5th Floor [address] [place] [address] 11/26/2024 3:20 PM EDT Office Visit [facility] [address] [facility] 5th Floor [address] [place] [address] Elisabet Schuster, PA [address] [facility] [address] [place] [address] 11/29/2024 2:30 PM EDT Office Visit [facility] [address] [place] [address] Oscar Appiah MD [address] [facility] [address] [place] [address] documented as of this encounter Procedures Procedure [...] as of this encounter Care Teams Public Affairs Director Relationship Specialty Start Date End Date Asad Victor MD [address] [place] [address] PCP - General 10/07/22 documented as of this encounter
--- OUTSIDE RECORDS SUMMARY | 2024-11-21 08:09 | XMS_ITS | Encounter Summary ---
Author Organization Healthcare Address [address] [place] [address] Care Team Providers Care Churn Tender Name Role Phone Asad Victor MD Primary Care Provider + [phone] Encounter Details Date Type Department Care Team (Late st Contact Info) Description 09/20/2024 Orders Only External Location [address] [place] [address] Timothy Marques PA [address] [place] [id number] Social History Tobacco Use Types Packs/Day Years [...] first t dino in the morning (EYE-KITCHEN LEAD) to steady your nerves or to [...] 11/26/2024 2:00 PM EDT Hospital Encounter [facility] [address] [facility] 5th Floor [address], [address] [place] [address] 11/26/2024 2:30 PM EDT Hospital Encounter [facility] [address] [facility] 5th Floor [address] [place] [id number] 11/26/2024 3:20 PM EDT Office Visit [facility] [address] [facility] 5th Floor [address] [place] [address] Elisabet Schuster, PA [address] [facility] [address] [place] [address] 11/29/2024 2:30 PM EDT Office Visit [facility] [address] [place] [address] Oscar Appiah MD [address] [facility] [address] [place] [address] documented as of this encounter Procedures Procedure [...] documented as of this encounter Care Teams Churn Tender Relationship Specialty Start Date End Date Asad Victor MD [address] [place] [address] PCP - General 10/07/22 documented as of this encounter
--- OUTSIDE RECORDS SUMMARY | 2024-11-21 08:14 | XMS_ITS | Encounter Summary ---
Author Organization [facility] Address [address] [place] [address] Care Team Providers Care Practical Ministries Professor Name Role Phone Asad Victor MD Primary Care Provider + [phone] Encounter Details Date Type Department Care Team [...] drink first t dino in the morning (EYE-MANAGING PARTNER DIGITAL CONTENT MARKETING [place]) to steady your nerves or to get [...] Description 11/26/2024 2:00 PM EDT Hospital Encounter [facility] [address] 5th Floor [address], [address] [place] [address] 11/26/2024 2:30 PM EDT Hospital Encounter [facility] [address] 5th Floor [address] [place] [address] 11/26/2024 3:20 PM EDT Office Visit [facility] [address] 5th Floor [address] [place] [address] Elisabet Schuster, PA [address] [place] [address] 11/29/2024 2:30 PM EDT Office Visit [facility] [address] [facility] [place] [address] Oscar Appiah MD [address] [facility] [address] [place] [address] documented as of this encounter [...] documented as of this encounter Care Teams Practical Ministries Professor Relationship Specialty Start Date End Date Asad Victor MD [address] [place] [address] PCP - General 10/07/22 documented as of this encounter
--- OUTSIDE RECORDS SUMMARY | 2024-11-21 08:14 | XMS_ITS | Encounter Summary ---
Author Organization Healthcare Address [address] [place] [id number] Care Team Providers Care Latex Caster Name Role Phone Asad Victor MD Primary Care Provider + [phone] Reason for Visit * Reason Onset Date Comments HCN Clinical Concern/Question 11/15/2024 Encounter Details Date Type Department Care Team (Late st Contact Info) Description 11/15/2024 Telephone [facility] [address] [facility] 5th Floor [address], [address] [place] [address] Nathaly Nowak MD [address] [facility] [address] [place] [address] HCN Clinical Concern/Question Social History [...] drink first t dino in the morning (EYE-ACETALDEHYDE CONVERTER OPERATOR) to steady your nerves or to [...] with info. Thank you Best contact number: [phone] (mobile) Optimal time of day to reach caller: ANYTIME Additional comments/information from caller: None Note: Please do not reply to this message. Follow-up communication and further actions as a result of this message need to be communicated with the patient directly, if the patient is not active onMyChart. If the patient is active on MyChart, they will receive notification of the communication/outcome via [employer]. documented in this encounter Plan of Treatment Upcoming Encounters Date Type Department Care Team (Late st Contact Info) Description 11/26/2024 2:00 PM EDT Hospital Encounter [facility] [address] [place] [address] 11/26/2024 2:30 PM EDT Hospital Encounter [facility] [address] [place] [address] 11/26/2024 3:20 PM EDT Office Visit [facility] [address] [facility] 5th Floor [address], [address] [place] [address] Elisabet Schuster PA [address] [facility] [address] [place] [address] 11/29/2024 2:30 PM EDT Office Visit [facility] [address] [place] [address] Oscar Appiah MD [address] [facility] [address] [place] [address] documented as of this encounter Goals Goal [...] documented as of this encounter Care Teams Latex Caster Relationship Specialty Start Date End Date Asad Victor MD [address] [place] [address] PCP - General 10/07/22 documented as of this encounter
--- OUTSIDE RECORDS SUMMARY | 2024-11-21 08:16 | XMS_ITS | Encounter Summary ---
Author Organization Healthcare Address [address] [place] [id number] Care Team Providers Care Diagnostic Radiologic Technologist Name Role Phone Asad Victor MD Primary Care Provider + [phone] Encounter Details Date Type Department Care Team (Late st Contact Info) Description 10/22/2024 Telephone Vascular Surgery [address] [place] [address] Alison Beltrán, HYGIENE TEACHER, DNP [address] [facility] [address] [place] [address] Social History Tobacco Use Types Packs/Day Years [...] any time in the past 12 m [facility], were you homeless or living in [...] first t dino in the morning (EYE-NURSE SEXUAL ASSAULT) to steady your nerves or to get [...] Notes * Telephone Encounter - Alison Beltrán, HYGIENE TEACHER, DNP - 10/22/2024 11:39 AM EDT Returned patient call. Patient s/p left common/superficial/profunda femoral thromboendarterectomy with bovine patch repair and left external iliac artery/APPLIANCE ADJUSTER stent with Dr Gautam on 10/17/24. Patient [...] Description 11/26/2024 2:00 PM EDT Hospital Encounter [facility] [address] [place] [address] 11/26/2024 2:30 PM EDT Hospital Encounter [facility] [address] [place] [address] 11/26/2024 3:20 PM EDT Office Visit [facility] [address] [place] [address] Elisabet Schuster, GLENDA [address] [facility] [address] [place] [address] 11/29/2024 2:30 PM EDT Office Visit [facility] [address] [place] [address] Oscar Appiah MD [address] [facility] [address] [place] [address] documented as of this encounter [...] documented as of this encounter Care Teams Diagnostic Radiologic Technologist Relationship Specialty Start Date End Date Asad Victor MD [address] [place] [address] PCP - General 10/07/22 documented as of this encounter
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
--- OUTSIDE RECORDS SUMMARY | 2024-11-21 08:16 | XMS_ITS | Encounter Summary ---
Author Organization [facility] Address [address] [place] [address] Care Team Providers Care Stitcher Hand Name Role Phone Asad Victor MD Primary Care Provider + [phone] Encounter Details Date Type Department Care Team [...] drink first t dino in the morning (EYE-HOME ECONOMIST) to steady your nerves or to get [...] 11/26/2024 2:00 PM EDT Hospital Encounter [facility] [address] 5th Floor [address] [place] [address] 11/26/2024 2:30 PM EDT Hospital Encounter [facility] [address] 5th Floor Wing [address], [address] [place] [address] 11/26/2024 3:20 PM EDT Office Visit [facility] [address] 5th Floor Wing [address], [address] [place] [address] Elisabet Schuster, PA [address] [place] [address] 11/29/2024 2:30 PM EDT Office Visit [facility] [address] [facility] [place] [address] Oscar Appiah MD [address] [facility] [address] [place] [address] documented as of this encounter [...] documented as of this encounter Care Teams Stitcher Hand Relationship Specialty Start Date End Date Asad Victor MD [address] [place] [address] PCP - General 10/07/22 documented as of this encounter
--- OUTSIDE RECORDS SUMMARY | 2024-11-21 08:17 | XMS_ITS | Clinical Summary ---
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) 11/20/2024 Travel 11/18/2024 1:10 PM EDT Office Visit [facility] 1 [place] [address] Jerry Monroe Jr., MD Non-pressure chronic ulcer [...] Description 11/22/2024 4:15 PM EDT Clinical Support [facility] [place] [address] [place] [address] 11/27/2024 2:20 PM EDT Office Visit [facility] [place] 1 [place] [address] Jerry Monroe Jr., MD [address] [place] [address] 11/29/2024 4:00 PM EDT Clinical Support [facility] [place] 1 [place] [address] 12/02/2024 2:15 PM EDT Clinical Support [facility] [place] 1 [place] [address] 12/04/2024 3:10 PM EDT Office Visit [facility] 1 [place] [address] Jerry Monroe Jr., MD [address] [place] [address] 12/06/2024 4:15 PM EDT Clinical Support [facility] 1 [place] [address] 12/09/2024 3:30 PM EDT Clinical Support [facility] [place] [address] [place] [address] 12/11/2024 2:40 PM EDT Office Visit [facility] [place] 1 [place] [address] Jerry Monroe Jr., MD [address] [place] [address] 12/13/2024 3:30 PM EDT Clinical Support [facility] [place] [address] [place] [address] 12/16/2024 3:30 PM EDT Clinical Support [facility] [place] [address] [place] [address] 12/18/2024 3:00 PM EDT Office Visit [facility] [place] 1 [place] [address] Jerry Monroe Jr., MD [address] [place] [id number] 12/20/2024 3:30 PM EDT Clinical Support [facility]ound [facility] 1 [place] [address] Health Maintenance Due Date Last Done Comments [...] 2 - PCV) 03/11/2021 COVID-19 VACCINE ( - season) 2023, 07/31/2020 Abdominal Aortic Aneurysm (AAA) Screen 2024 Falls Risk Screening 03/27/2024 Medicare IPPE (Welcome to Medicare) [id number] 03/27/2024 Hemoglobin A1C 11/18/2024 Influenza Vaccine (#1) 2024 02/06/2021 Tobacco Cessation Counseling and Screening (12+) 11/18/2025 11/20/2024 Procedures Procedure Name Priority Date/Time Associated Diagnosis [...] tissue from Last 3 Months Results * [place] DEBRIDEMENT MUSCLE &/FASCIA 1ST [...] provider verified the correct patient, procedure, equipment, logistics support, and site/side marked as required. Debridement [...] provider verified the correct patient, procedure, equipment, logistics support, and site/side marked as required. Debridement [...] Final Result from Last 3 Months Insurance [facility] ADV DUAL COMPLETE MEDICAID OF [place]
--- OUTSIDE RECORDS SUMMARY | 2024-11-21 08:17 | XMS_ITS | Encounter Summary ---
Author Organization Healthcare Address [address] [place] [address] Care Team Providers Care Wax Specialist Name Role Phone Asad Victor MD Primary Care Provider + [phone] Encounter Details Date Type Department Care Team (Late st Contact Info) Description 10/17/2024 Orders Only External Location [address] [place] [address] Provider, External Social History Tobacco Use Types [...] any time in the past 12 m [facility], were you homeless or living in [...] first t dino in the morning (EYE-TELEPHONE ENGINEER) to steady your nerves or to get rid of a hangover? 0 10/18/2021 CAGE Questionnaire Score 0 022 Utilities Answer Date Recorded In the past 12 months has th e [employer], gas, oil, or water [email or web address] threatened to shut off services in your [...] [facility] [address] [facility] 5th Floor Wing [address], [address] [place] [address] 11/26/2024 2:30 PM EDT Hospital Encounter [facility] [address] [facility] 5th Floor [address] [place] [address] 11/26/2024 3:20 PM EDT Office Visit [facility] [address] [facility] 5th Floor Wing [address], [address] [place] [address] Elisabet Schuster PA [address] [place] [address] 11/29/2024 2:30 PM EDT Office Visit [facility] [address] [place] [address] Oscar Appiah MD [address] [facility] [address] [place] [address] documented as of this encounter [...] documented as of this encounter Care Teams Wax Specialist Relationship Specialty Start Date End Date Asad Victor MD [address] [place] [address] PCP - General 10/07/22 documented as of this encounter
--- OUTSIDE RECORDS SUMMARY | 2024-11-21 08:17 | XMS_ITS | Encounter Summary ---
Author Organization [facility] Address [address] [place] [address] Care Team Providers Care Animal Pathology Teacher Name Role Phone Asad Victor MD Primary Care Provider + [phone] Encounter Details Date Type Department Care Team [...] any time in the past 12 m [facility], were you homeless or living [...] drink first t dino in the morning (EYE-BALLET COMPANY MEMBER) to steady your nerves or to [...] [facility] [address] Floor [address], [address] [place] [address] 11/26/2024 2:30 PM EDT Hospital Encounter [facility] [address] 5th Floor Wing D, [address] [place] [address] 11/26/2024 3:20 PM EDT [facility] [address] 5th Floor [address], [address] [place] [address] Elisabet Schuster, PA [address] [facility] [address] [place] [address] 11/29/2024 2:30 PM EDT Office Visit [facility] [address] [facility] [place] [address] Oscar Appiah MD [address] [facility] [address] [place] [address] documented as of this encounter [...] documented as of this encounter Care Teams Animal Pathology Teacher Relationship Specialty Start Date End Date Asad Victor MD [address] [place] [address] PCP - General 10/07/22 documented as of this encounter
--- OUTSIDE RECORDS SUMMARY | 2024-11-21 08:18 | XMS_ITS | Encounter Summary ---
Author Organization [employer] ([place], [place], [place], [place]) Address [address] [place] [address] Care Team Providers Care Technical Sales Support Manager Name Role Phone Unavailable Primary Care [...] Description 11/22/2024 4:15 PM EDT Clinical Support [facility] [place] [facility] 1 [place] [address] 11/27/2024 2:20 PM EDT Office Visit [facility] 1 [place] [address] Jerry Monroe Jr., MD [address] [place] [address] 11/29/2024 4:00 PM EDT Clinical Support [facility] [address] [address] 12/02/2024 2:15 PM EDT Clinical Support [facility] [place] [facility] 1 [place] [address] 12/04/2024 3:10 PM EDT Office Visit [address] [address] Jerry Monroe Jr., MD [address] [place] [address] 12/06/2024 4:15 PM EDT Clinical Support [facility] [place] [facility] 1 [place] [address] 12/09/2024 3:30 PM EDT Clinical Support [facility] 1 [place] [address] 12/11/2024 2:40 PM EDT Office Visit [facility] 1 [place] [address] Jerry Monroe Jr., MD [address] [place] [address] 12/13/2024 3:30 PM EDT Clinical Support [facility] 1 [place] [address] 12/16/2024 3:30 PM EDT Clinical Support [facility] 1 [place] [address] 12/18/2024 3:00 PM EDT Office Visit [facility] 1 [place] [address] Jerry Monroe Jr., MD [address] [place] [address] 12/20/2024 3:30 PM EDT Clinical Support [facility] 1 [place] [address] documented as of this encounter Visit Diagnoses Not on filedocumented in this encounter
--- OUTSIDE RECORDS SUMMARY | 2024-11-21 08:19 | XMS_ITS | Encounter Summary ---
Author Organization [facility] Address [address] [place] [address] Care Team Providers Care Mechanics Supervisor Name Role Phone Asad Victor MD Primary Care Provider + [phone] Encounter Details Date Type Department Care Team [...] first t dino in the morning (EYE-CLEANING SUPERVISOR) to steady your nerves or to [...] Description 11/26/2024 2:00 PM EDT Hospital Encounter [facility] [address], [address] [place] [address] 11/26/2024 2:30 PM EDT Hospital Encounter [facility] [address] [place] [address] 11/26/2024 3:20 PM EDT Office Visit [facility] [address] [facility] 5th Floor [address], [address] [place] [address] Elisabet Schuster, PA [address] [place] [address] 11/29/2024 2:30 PM EDT Office Visit [facility] [address] [place] [address] Oscar Appiah MD [address] [place] [address] [address] [place] [address] documented as of this encounter [...] documented as of this encounter Care Teams Mechanics Supervisor Relationship Specialty Start Date End Date Asad Victor MD [address] [place] [address] PCP - General 10/07/22 documented as of this encounter
--- OUTSIDE RECORDS SUMMARY | 2024-11-21 08:19 | XMS_ITS | Encounter Summary ---
Author Organization Healthcare Address [address] [place] [address] Care Team Providers Care Senior Property Manager Name Role Phone Asad Victor MD Primary Care Provider + [phone] Encounter Details Date Type Department Care Team (Late st Contact Info) Description 11/05/2024 Orders Only External Location [address] [place] [address] Provider, External Social History Tobacco Use Types [...] time in the past 12 m [facility], were you homeless or living in [...] drink first t dino in the morning (EYE-PIPE FITTER HELPER) to steady your nerves or to get rid of a hangover? 0 10/18/2021 CAGE Questionnaire Score 0 022 Utilities Answer Date Recorded In the past 12 months has th e [employer], gas, oil, or water company threatened to [...] Description 11/26/2024 2:00 PM EDT Hospital Encounter [facility] [address] [facility] 5th Floor Wing [address], [address] [place] [address] 11/26/2024 2:30 PM EDT Hospital Encounter [facility] [address] [facility] 5th Floor Wing [address], [address] [place] [address] 11/26/2024 3:20 PM EDT Office Visit [facility] [address] 5th Floor [address] [place] [address] Elisabet Schuster PA [address] [place] [address] [place] [address] 11/29/2024 2:30 PM EDT Office Visit [facility] [address] [place] [address] Oscar Appiah MD [address] [facility] [address] [place] [address] documented as of this encounter [...] as of this encounter Care Teams Senior Property Manager Relationship Specialty Start Date End Date Asad Victor MD [address] [place] [address] PCP - General 10/07/22 documented as of this encounter
[2024-11-21] MEDS: SODIUM CHLORIDE 0.9% 10ML FLUSH SYRINGE 10 ML IV (08:20)
--- OUTSIDE RECORDS SUMMARY | 2024-11-21 08:20 | XMS_ITS | Encounter Summary ---
Author Organization Healthcare Address [address] [place] [address] Care Team Providers Care Dredge Runner Name Role Phone Asad Victor MD Primary Care Provider + [phone] Encounter Details Date Type Department Care Team (Late st Contact Info) Description 11/15/2024 Clinical Support [facility] [address] [place] [address] Charly Orlando, PharmD [address] [place] [address] [address] [place] [address] Social History Tobacco Use Types [...] drink first t dino in the morning (EYE-CONFIGURATION MANAGEMENT ADVISOR) to steady your nerves or to get rid of a hangover? 0 10/18/2021 CAGE Questionnaire Score 0 022 Utilities Answer Date Recorded In the past 12 months has th e [employer], gas, oil, or water company threatened to [...] Description 11/26/2024 2:00 PM EDT Hospital Encounter [facility] [address] 5th Floor [address] D, [address] [place] [address] 11/26/2024 2:30 PM EDT Hospital Encounter [facility] [address] 5th Floor [address], [address] [place] [address] 11/26/2024 3:20 PM EDT Office Visit [facility] [address] 5th Floor [address], [address] [place] [address] Elisabet Schuster PA [address] [place] [address] 11/29/2024 2:30 PM EDT Office Visit [facility] [address] [facility] [place] [address] Oscar Appiah MD [address] [facility] [address] [place] [address] documented as of this encounter [...] documented as of this encounter Care Teams Dredge Runner Relationship Specialty Start Date End Date Asad Victor MD [address] [place] [address] PCP - General 10/07/22 documented as of this encounter
[2024-11-21 08:21] VITALS: BP 122/50; PULSE 69; RESP 16; TEMP 36.6; O2SAT 97
[2024-11-21] MEDS: MICAFUNGIN SODIUM IV (08:21)
[2024-11-21] MEDS: SODIUM CHLORIDE 0.9% IV (08:21)
--- OUTSIDE RECORDS SUMMARY | 2024-11-21 08:21 | XMS_ITS | Encounter Summary ---
Author Organization [employer] ([place], [place], [place]) Address [address] [place] [address] Care Team Providers Care Psychiatric Clinician Name Role Phone Unavailable Primary Care Provider Unavailabl e Encounter Details Date Type Department Care Team (Latest Contact Info) Description 11/20/2024 Travel Social History Tobacco Use Types Packs/Day [...] Description 11/22/2024 4:15 PM EDT Clinical Support [facility] [place] 1 [place] [address] 11/27/2024 2:20 PM EDT Office [facility] 1 [place] [address] Jerry Monroe Jr., MD [address] [place] [address] 11/29/2024 4:00 PM EDT Clinical Support [facility] [address] [address] 12/02/2024 2:15 PM EDT Clinical Support [facility] [place] 1 [place] [address] 12/04/2024 3:10 PM EDT Office Visit [address] [address] Jerry Monroe Jr., MD [address] [place] [address] 12/06/2024 4:15 PM EDT Clinical Support [facility] [place] 1 [place] [address] 12/09/2024 3:30 PM EDT Clinical Support [facility] 1 [place] [address] 12/11/2024 2:40 PM EDT Office Visit [facility] 1 [place] [address] Jerry Monroe Jr., MD [address] [place] [address] 12/13/2024 3:30 PM EDT Clinical Support [facility] 1 [place] [address] 12/16/2024 3:30 PM EDT Clinical Support [facility] 1 [place] [address] 12/18/2024 3:00 PM EDT Office Visit [facility] 1 [place] [address] Jerry Monroe Jr., MD [address] [place] [address] 12/20/2024 3:30 PM EDT Clinical Support [facility] 1 [place] [address] documented as of this encounter Visit Diagnoses Not on filedocumented in this encounter
--- OUTSIDE RECORDS SUMMARY | 2024-11-21 08:23 | XMS_ITS | Encounter Summary ---
Author Organization Healthcare Address [address] [place] [address] Care Team Providers Care Tax Representative Name Role Phone Asad Victor MD Primary Care Provider + [phone] Encounter Details Date Type Department Care Team [...] drink first t dino in the morning (EYE-PATROL DEPUTY SHERIFF) to steady your nerves or to get [...] Description 11/26/2024 2:00 PM EDT Hospital Encounter [facility] [address] [facility] 5th Floor [address], [address] [place] [address] 11/26/2024 2:30 PM EDT Hospital Encounter [facility] [address] [facility] 5th Floor [address], [address] [place] [address] 11/26/2024 3:20 PM EDT Office Visit [facility] [address] 5th Floor [address] [place] [address] Elisabet Schuster PA [address] [place] [address] 11/29/2024 2:30 PM EDT Office Visit [facility] [address] [place] [address] Oscar Appiah MD [address] [facility] [address] [place] [address] documented as of this encounter Visit Diagnoses Not on filedocumented in this encounter Additional Health Concerns Assessment Noted Time A Body Mass Index follow-up plan has been documented for the patient 09/22/2024 2:53 PM EDT documented as of this encounter Care Teams Tax Representative Relationship Specialty Start Date End Date Aasd Victor MD [address] [facility] [place] [address] PCP - General 10/07/22 documented as of this encounter
[2024-11-21 09:21] VITALS: BP 127/58; PULSE 68; RESP 14; O2SAT 96
[2024-11-21] MEDS: ERTAPENEM SODIUM 1 GM in 0.9 % SODIUM CHLORIDE 50 ML IV (09:21)
[2024-11-21 09:52] VITALS: BP 140/63; PULSE 67; RESP 14; TEMP 36.6; O2SAT 96
== END 2024-11-21 09:55 | disposition home or self-care (01) ==
LOC: INF 08:05
PROVIDERS: PCP Family Medicine
DX: T14.8XXA Other injury of unspecified body region, initial encounter (principal); L08.9 Local infection of the skin and subcutaneous tissue, unspecified
CPT/HCPCS: 96365; 96367; J1335; J2248

== ENCOUNTER 2024-11-22 08:04 | Outpatient (CLI) | payer MEDICARE, OTHER, SELFPAY ==
--- OUTSIDE RECORDS SUMMARY | 2024-10-11 10:15 | XMS_ITS | Encounter Summary ---
Author Organization [facility] Address [address] [place] [address] Care Team Providers Care Petroleum Production Engineer Name Role Phone Asad Victor MD Primary Care Provider + [phone] Encounter Details Date Type Department Care Team (Latest Contact Info) Description 10/11/2024 10:15 AM EDT Pre-Admission Testing [facility] Pre-op Clinic [address] [place] [phone] Preop testing (Primary Dx) Anesthesia Record Procedure [...] Hand; Site Prep: Chlorhexidine ; Local Anesth: [place]; Technique: Anatomical landmarks; Inserted by: CHRISTIAN Acuna; [...] G; Orientation: Right; Location: Axillary; Inserted by: DEVOPS ENGINEER; Securement: Sutured; Patient Tolerance: Tolerated well; [...] drink first t dino in the morning (EYE-TILE MACHINE OPERATOR) to steady your nerves or [...] T2DM, HLD, HTN, RLS who presented to [facility] with a large left common [...] note 09/25/24 (media) + CAD s/p multiple [place]'s and 3V CABG 02/2019, 2 stents prior to CABG Atrial Fibrillation with RVR s/p CABG + carotid artery disease s/p R CEA 2016 + 3rd degree AV block ROAD MENDER-P placed 08/2023 for Wenkeback with 11 sec pause + HLD + HTN - controlled + PAD 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 S/P intravascular lithotripsy of left common and external iliac artery with 2 continuous balloon mounted bare metal stents 09/12/24 on Xarelto and ASA + WILHELM occ, low energy for > year - had work-up recently in [place] (will get records) + peripheral edema LLE [...] ENDARTERECTOMY N/A 2017 Endarterectomy Carotid Artery from [facility] CORONARY ANGIOPLASTY Left Coronary Angiography With Concomitant Left Heart Catheterization from [facility] CORONARY ARTERY BYPASS GRAFT N/A 2018 3V ELBOW SURGERY Right OTHER SURGICAL HISTORY N/A Reported Prior Surgical / Procedural History from [facility] [5] No Known Allergies [6] Current Outpatient [...] card, photo ID, along with power of ip technology transactions attorney, guardianship or advanced directives if applicable [...] Description 11/26/2024 2:00 PM EDT Hospital Encounter [facility] Lab [address] [place] [address] 11/26/2024 2:30 PM EDT Hospital Encounter [facility] [address] [place] [address] 11/26/2024 3:20 PM EDT Office Visit [facility] [address] [place] [address] Elisabet Schuster PA [address] [place] [address] 11/29/2024 2:30 PM EDT Office Visit [facility] [address] [place] [address] Oscar Appiah MD [address] [facility] [address] [place] [address] documented as of this encounter [...] Modality Other Narrative 10/17/2024 9:50 AM EDT [facility]: Pre-operative CIED Report Assessment and Sara-Procedural Reommendations: Name: Mono Bobby Date: 10/17/2024 : 1960 Age: 64 y.o. Patient has a Fur Cutting Machine Operator: Berger ROAD MENDER-PM Remaining battery longevity adequate. Lead integrity test [...] recommendations. Supporting reports can be found in [employer] file. us Emelina DOSHI CV IMPLANTABLE CARDIAC [...] documented as of this encounter Care Teams Petroleum Production Engineer Relationship Specialty Start Date End Date Asad Victor MD [address] [place] [address] PCP - General 10/07/22 documented as of this encounter
--- OUTSIDE RECORDS SUMMARY | 2024-10-16 14:45 | XMS_ITS | Encounter Summary ---
Author Organization Healthcare Address [address] [place] [address] Care Team Providers Care Electric Truck Driver Name Role Phone Asad Victor MD Primary Care Provider + [phone] Encounter Details Date Type Department Care Team (Latest Contact Info) Description 10/16/2024 2:45 PM EDT - 10/16/2024 11:59 PM EDT Hospital Encounter Cardiac Imaging [address] [place] [address] Discharge Disposition: Home or Self Care Social [...] drink first t dino in the morning (EYE-LOG HANDLING EQUIPMENT OPERATOR) to steady your nerves or to [...] Description 11/26/2024 2:00 PM EDT Hospital Encounter [facility] [address] [place] [address] 11/26/2024 2:30 PM EDT Hospital Encounter [facility] [address] [place] [address] 11/26/2024 3:20 PM EDT Office Visit [facility] [address] [place] [address] Elisabet Schuster, GLENDA [address] [facility] [address] [place] [address] 11/29/2024 2:30 PM EDT Office Visit [place] [address] [place] [address] Oscar Appiah MD [address] [facility] [address] [place] [address] documented as of this encounter Goals Goal [...] Modality Other Narrative 10/17/2024 9:50 AM EDT [facility]: Pre-operative CIED Report Assessment and Sara-Procedural Reommendations: Name: Mono Bobby Date: 10/17/2024 : 1960 Age: 64 y.o. Patient has a Senior Electrical Designer: Berger CLUB CONCIERGE-PM Remaining battery longevity adequate. Lead integrity test [...] recommendations. Supporting reports can be found in [employer] media file. 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
--- OUTSIDE RECORDS SUMMARY | 2024-10-17 06:21 | XMS_ITS | Encounter Summary ---
Author Organization [facility] Address [address] [id number] Care Team Providers Care Litigation Legal Secretary Name Role Phone Asad Victor MD Primary Care Provider [phone] Reason for Referral * Imaging (Routine) - Authorized Specialty Diagnoses / Procedures Referred By Susan t Referred To Contact Cardiology Diagnoses Critical limb ischemia of left lower extremity Pseudoaneurysm of left femoral artery (CMS/HCC) Procedures VAS US Arterial Duplex Lower Extremity Unilateral Left Terrell Gautam MD [address] [address] Phone: tel: fax: Referral ID Status Reason Start Date Expiration Date Visits Requested Visits Authorized [id number] Authorized Perform Procedure 10/19/2024 04/20/2026 1 1 * Imaging (Routine) - Authorized Specialty Diagnoses / Procedures Referred By Contac t Referred To Contact Cardiology Diagnoses Critical limb ischemia of left lower extremity Pseudoaneurysm of left femoral artery (CMS/HCC) Procedures VAS Ankle Brachial Index - Segmental Terrell Gautam MD [id number] [place] [address] Phone: tel: fax: Referral ID Status Reason Start Date Expiration Date Visits Requested Visits Authorized [id number] Authorized Perform Procedure 10/19/2024 04/20/2026 1 1 * Consultation (Routine) - Authorized Specialty Diagnoses / Procedures Referred By Contact Referred To Contact Vascular Surgery / [facility] Diagnoses Critical limb ischemia of left lower extremity Pseudoaneurysm of left femoral artery (CMS/HCC) Terrell Gautam MD [address] [place] [address] Phone: tel:[phone] fax:[phone] [facility] [address] [place] [address] 5th Floor [address] [place] [address] Phone: tel: fax: Referral ID Status Reason Start Date Expiration Date Visits Requested Visits Authorized [id number] Authorized Specialty Services Required 10/19/2024 04/20/2026 [address] Gautam, with SIL, arterial duplex Reason for Visit * Auth/Cert (Routine) Specialty Diagnoses / Procedures Referred By Susan t Referred To Contact Diagnoses Critical limb ischemia of left lower extremity Critical limb ischemia of left lower extremity [I70.222] Procedures KS VEIN BYPASS GRAFT,FEM-POP CREATION, BYPASS, ARTERIAL, FEMORAL TO POPLITEAL Terrell Gautam MD [address] [place] [address] Phone: tel: fax: [facility] A OPERATING ROOM [address] [place] [address] Phone: tel: Referral ID Status Reason Start Date Expiration Date Visits Re quested Visits Authorized [id number] 1 1 Encounter Details Date Type Department Care Team (Latest Contact Info) Description 10/17/2024 6:21 AM EDT - 10/19/2024 12:39 PM EDT Hospital Encounter [facility] H Inpatient [address] [place] [id number] Terrell Gautam MD [address] [place] [address] Pseudoaneurysm of left femoral artery (CMS/HCC) [...] any time in the past 12 m [facility], were you homeless or living in a senior living (including now)? No 10/18/2024 CAGE ASSESSMENT Answer [...] drink first t dino in the morning (EYE-GAMBRELER) to steady your nerves or to get rid of a hangover? 0 10/18/2021 CAGE Questionnaire Score 0 022 Utilities Answer Date Recorded In the past 12 months has th [place], gas, oil, or water [place] threatened to shut off services in your [...] provided Taken 10/17/20242107 by Jourdan Grimes II milk driver Review/Management: medications reviewed Problem: Skin Injury [...] Ongoing, Progressing Intervention: Promote Activity and Functional Beyer Flowsheets (Taken 10/19/2024 1048) Self-Care Promotion: BADL personal objects within reach meal set-up provided * Yuni Ramires - Keyla Chow - 10/19/2024 11:45 AM EDT Images from the original note were not included. [id number] After Peripheral Artery Bypass Surgery: In the [...] home. Last Reviewed Date: 2023 00:00:00 ?? [id number] The [employer]. All rights reserved. This information is not intended as a substitute for professional medical care. Always follow your healthcare professional's instructions. * Progress Notes - Emelina Friend - 10/19/2024 11:44 AM EDT Case Management Adult Progress Note Bev Bobby 64 y.o. male CSN: [id number] Admission: 10/17/2024 6:21 AM Primary Problem: Critical [...] if any other needs arise. Emelina Friend DATA VIRTUALIZATION CONSULTANT, ELEMENTARY SPANISH TEACHER Social Work Case Management * Yuni OviJOSE MANUEL Chow Keyla - 10/19/2024 11:44 AM EDT Images from the original note were not included. [id number] Peripheral Artery Disease (PAD) Peripheral artery disease [...] cause. Last Reviewed Date: 2024 00:00:00 ?? [id number] The [employer]. All rights reserved. This information is not intended as a substitute for professional medical care. Always follow your healthcare professional's instructions. * Yuni DiorNAVYA - Keyla Chow - 10/19/2024 11:44 AM EDT Images from the original note were not included. [id number] Leg Artery Emergencies: Critical Limb Ischemia (CLI) [...] appointments. Last Reviewed Date: 2023 00:00:00 ?? [id number] The [employer]. All rights reserved. This information is not intended as a substitute for professional medical care. Always follow your healthcare professional's instructions. * Discharge Summary - Dandy Baltazar MD - 10/19/2024 11:31 AM EDT Hospitalization Admit Date/Time: 10/17/2024 6:21 AM Admitting Attending: Terrell Gautam Discharge Date: 10/19/24 Discharge Attending Physician: Nirmal Cueto MD PCP name and Address: Asad Victor MD (Inactive) [address] [place] [address] / [facility] [address] Referring provider name and address: Timothy Marques PA [address] [place] [address] Chief Concern, Brief History of Present Illness, and Hospital Course Bev Bobby is an 64 y.o. 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 [...] Your Medications These medications were sent to [facility] [place], [place] - [address], [facility] [address] acetaminophen 500 MG tablet clopidogrel 75 MG [...] of water. 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 [...] provided Taken 10/17/20242107 by Jourdan Grimes II, milk driver Review/Management: medications reviewed Problem: Skin Injury [...] Ongoing, Progressing Intervention: Promote Activity and Functional Beyer Flowsheets (Taken 10/19/2024 1048) Self-Care Promotion: BADL [...] evaluation. PARTICIPANTS IN CARE Visitors Present No Drywall Carrier (if applicable) PRESENTATION Oxygen Oxygen Therapy: None [...] Level of Mobility Ambulatory- household only Mobility Beyer Independent gait with device (rollator) History of [...] numbness in rodney) BED MOBILITY Level of Beyer Physical/Non- physical Assist Adaptive Equipment Utilized Rolling/ Turning Scooting/ Bridging Modified independence (anteriorly to EOB) Bed rails Supine to Sit Modified Beyer (to the right) (HOB flat) Bed rails Sit to Supine Interventions HOB flat to simulate home environment TRANSFERS Level of Beyer Physical/Non- physical Assist Adaptive Equipment Utilized Sit [...] stable surfaces during transitions. AMBULATION Level of Beyer Distance Adaptive Equipment Utilized Ambulation Standby assist, [...] Posture: Forward head, Rounded shoulders Level of Beyer Balance Support Interventions Static Sit Independent Right [...] 3-5 steps with a railing?: A little [facility] 6-Clicks Mobility Assessment Total : 22 ASSESSMENT [...] evaluation/session. Participants in Care Family/Caregiver Present: No Drywall Carrier: Not Applicable Presentation Oxygen Therapy: None (Room [...] Level of Mobility: Ambulatory- household only Mobility Beyer: Independent gait with device (rollator) History of [...] Mobility Bed Mobility Exam: Scooting/Bridging Level of Beyer: Modified independence (anteriorly to EOB) Assistive Device: Bed rails Bed Mobility Exam: Supine to Sit Level of Beyer: Modified Beyer (to the right) Physical/Nonphysical Assist: (HOB flat) Assistive Device: Bed rails Transfers Transfer Exam: Sit to stand Level of Beyer: Stand-by assist Physical/Nonphysical Assist: Supervision, Verbal Cues, Minimal cues Assistive Device: Walker, rolling Transfer Exam: Stand to Sit Level of Beyer: Stand-by assist Physical/Nonphysical Assist: Supervision, Verbal Cues, [...] regarding toileting at this time. Standardized Assessments [facility] 6-Click Daily Activities Help from Other: Don/Doff Regular Lower Body Clothings: None Help From Other: Bathing: Little Help From Other: Toileting: None Help From Other: Don/Doff Upper Body Clothings: None Help From Other: Grooming: None Help From Other: Eating Meals: None [facility] 6 Click - Daily Activities Score: 23/24 [facility] Scoring Interpretation: Scores greater than 20.5 suggest [...] Note Bev Bobby 64 y.o. male CSN: [id number] Admission: 10/17/2024 6:21 AM Primary Problem: Critical limb ischemia of left lower extremity Commercial Loan Reviewer reviewed chart and spoke with patient to complete this Initial Case Management Assessment. PCP: Asad Victor MD (Inactive) - Dr. Palomo Preferred pharmacy is [facility] Emergency Contact: Extended Emergency Contact Information Primary Emergency Contact: Patti Hill Relation: Sister Drywall Carrier needed? No Insurance: Primary Visit Coverage Payer Plan Sponsor Code Group Number Group Name [facility] MEDICARE [facility] MEDICARE REPLACEMENT [id number] Primary Visit Coverage Subscriber Subscriber ID Subscriber Name Subscriber N Subscriber Address [id number] BEV BOBBY [id number] [place] [address] Secondary Visit Coverage Payer Plan Sponsor Code Group Number Group Name [facility] MEDICA[facility] Secondary Visit Coverage Subscriber Subscriber ID Subscriber Name Subscriber N Subscriber Address [id number] BEV BOBBY [id number] [place] [address] Patient information: Primary Caregiver: Self Daily Living Activities: Functional Status: Independent Living Arrangements: Alone Type of Residence: Private residence, Single Level [address] [place] [address] Current DME: Equipment Currently Used at Home: walker, rollator Income Information: Income Source: Retired Income/Expense Information: Income meets expenses Current Resources Utilized: Food [place] Housing Circumstances-Z Codes: Housing Circumstances (select all [...] Dialysis Services: None. Living Will/Advance Directive/Power of Articulation Officer /Guardian: Denied. Additional Comments: Patient is not medically ready for discharge. SW will continue to follow. Mariia Macedo ELEMENTARY SPANISH TEACHER * Care Plan - Emilia Alonso RN [...] from the original note were not included. [facility] Department of Surgery Division [...] Agree with above assessment and evaluation from resident/COLLEGE DEAN. * Op Note - Terrell Gautam MD - 10/17/2024 8:52 AM EDT Operative Note Date: 10/17/24 Location: [facility] Name: Bev Bobby, : 1960, Diagnoses: Pre-op Diagnosis Critical limb ischemia of left lower extremity Common femoral artery pseudoaneurysm Post-op Diagnosis Critical limb ischemia of left lower extremity Common femoral artery pseudoaneurysm Procedure(s): Left common/superficial/profunda femoral thromboendarterectomy with bovine patch repair Left external iliac artery/AUTOMATIC LUMP MAKING MACHINE TENDER stent Attending Surgeon(s): * Terrell Gautam - Primary Crystalizer Tender(s): * Luna Beckett MD - Resident - [...] Necessity Reasons Recent surgery contiguous with urinary tract/DIVISION FIELD INSPECTOR/colorectal 10/17/24 190 Output (mL) 50 mL 10/18/24 08 Implants Type Name Action Serial No. VASCUGUARD 8 X 8 - [id number] Implanted STENT ENDOPROSTHESIS VIABAHN 9FR [id number] - [id number] Implanted [id number] Specimen: Specimens ID Source Frozen? 1 Other [...] and distal control. We then proceeded with owbxw-wkg-hqyr exposure of the popliteal artery. A medial [...] balloon dilated thestent with a 9 mm [place]. We closed the arteriotomy with a single [...] 10/17/2024 8:52 AM EDT Date: 10/17/24 Location: [facility] Name: Bev Perez Kanu, : 1960, Diagnoses: Pre-op Diagnosis Critical limb ischemia of left lower extremity Common femoral artery pseudoaneurysm Post-op Diagnosis Critical limb ischemia of left lower extremity Common femoral artery pseudoaneurysm Procedure(s): Left common/superficial/profunda femoral thromboendarterectomy with bovine patch repair Left external iliac artery/AUTOMATIC LUMP MAKING MACHINE TENDER stent Attending Surgeon(s): * Terrell Gautam - Primary Crystalizer Tender(s): * Luna Beckett MD - Resident - Assisting * Dandy Baltazar MD - Fellow Anesthesia: General ASA: III Blood Administration: Blood Product Administration History None Estimated Blood Loss: 300 mL Drains: Urethral Catheter Temperature probe 16 Fr. (Active) Implants Type Name Action Serial No. VASCUGUARD 8 X 8 - [id number] Implanted STENT ENDOPROSTHESIS VIABAHN 9FR [id number] - [id number] Implanted [id number] Specimen: Specimens ID Source Frozen? 1 Other [...] issues. 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 He previouslyunderwent thrombin injection. He reports pain in his calves. He presents today for scheduled left lower extremity femoral to wbpwq-tgb-neyo popliteal bypass. Planned likely use PTFE. He [...] 16. Results Review {Vanishing Link Review Results :[id number] I have reviewed the latest lab and imaging results. Assessment & Plan Critical limb ischemia of left lower extremity Proceed with scheduled surgery left lower extremity femoral to wifnh-zlk-xpew popliteal artery bypass graft. Extensive discussion had [...] [facility] [address] [place] [address] 11/26/2024 2:30 PM EDT Hospital Encounter [facility] [address] [place] [address] 11/26/2024 3:20 PM EDT Office Visit [facility] [address] [place] [address] Elisabet Schuster, GLENDA [address] [facility] [address] [place] [address] 11/29/2024 2:30 PM EDT Office Visit [facility] [address] [place] [phone] Oscar Appiah MD [address] [facility] [address] [place] [address] Pending Results Name Type Priority Associated Diagnoses [...] Comment 10/19/2024 11:42 AM EDT HEALTHCARE LAB Wedding Photographer ID KamranJob 10/20/19 11:42 AM EDT HEALTHCARE LAB Device ID [id number] 10/19/2024 11:42 AM EDT [facility] Specimen Type POC Capillary 10/19/2024 11:42 AM EDT [facility] Blood Capillary blood specimen / Unknown 10/19/2024 11:40 AM EDT 10/19/2024 11:42 AM EDT Terrell Gautam MD LAB POINT OF CARE TE ST DOCKED DEVICE UNSOLICITED RESULTS Final Result Performing Organization Address City/State/[facility] Co de Phone Number HEALTHCARE LAB [address] [place] [address] * (ABNORMAL) Protime-INR (10/19/2024 8:25 AM EDT) Prothrombin Time 17.5(H) 12.0 - 14.3 sec LAB COAGULATION METHOD 10/19/2024 9:25 AM EDT [facility] INR 1.4(H) 0.9 - 1.1 LAB COAGULATION METHOD 10/19/2024 9:25 AM EDT [facility] Blood Venous blood specimen / Unknown Venipuncture / Unknown 10/19/2024 8:25 AM EDT 10/19/2024 8:43 AM EDT Narrative [facility] - 10/19/2024 9:25 AM [...] Cueto MD LAB BLOOD [place] [address] * (ABNORMAL) Phosphorus (10/19/2024 8:25 AM EDT) Phosphorus, Plasma 2.2(L) 2.5 - 4.5 mg/dL 10/19/2024 9:12 AM EDT [facility] Blood Venous blood specimen / Unknown Venipuncture / Unknown 10/19/2024 8:25 AM EDT 10/19/2024 8:43 AM EDT Nirmal Cueto MD LAB BLOOD ORDERABLES Final Result Performing Organization Address City/[facility]/ZIP Co de Phone Number [facility] [address] [place] [address] * Magnesium (10/19/2024 8:25 AM EDT) Magnesium, Plasma 2.1 1.9 - 2.4 mg/dL 10/19/2024 9:12 AM EDT [facility] Blood Venous blood specimen / Unknown Venipuncture / Unknown 10/19/2024 8:25 AM EDT 10/19/2024 8:43 AM EDT Nirmal Cueto MD LAB BLOOD ORDERABLES Final Result Performing Organization Address City/[facility]/ZIP Co de Phone Number [facility] [address] [place] [address] * (ABNORMAL) Basic metabolic panel (10/19/2024 8:25 AM EDT) Glucose, Plasma 191(H) 74 - 99 mg/dL 10/19/2024 9:12 AM EDT [facility] BUN, Plasma 18 8 - 23 mg/dL 10/19/2024 9:12 AM EDT [facility] Creatinine, Plasma 0.76 0.70 - 1.20 mg/dL 10/19/2024 9:12 AM EDT [facility] BUN/Creatinine Ratio 24 10/19/2024 9:12 AM EDT [facility] Sodium, Plasma 135(L) 136 - 145 mmol/L 10/19/2024 9:12 AM EDT [facility] Potassium, Plasma 4.1 3.6 - 4.9 mmol/L 10/19/2024 9:12 AM EDT [facility] Chloride, Plasma 104 97 - 107 mmol/L 10/19/2024 9:12 AM EDT [facility] CO2, Plasma 22 22 - 29 mmol/L 10/19/2024 9:12 AM EDT [facility] Anion Gap 9 6 - 16 mmol/L 10/19/2024 9:12 AM EDT [facility] Total Calcium, Plasma 8.4(L) 8.9 - 10.2 mg/dL 10/19/2024 9:12 AM EDT [facility] eGFRcr 99.7 mL/min/1.7 3m*2 10/19/2024 9:12 AM EDT [facility] Comment:Reported eGFRcr in m L/min/1.73m2 is based the CKD-EPI 2020 equation that does not use a race coefficient. Blood Venous blood specimen / Unknown Venipuncture / Unknown 10/19/2024 8:25 AM EDT 10/19/2024 8:43 AM EDT us Nirmal Cueto MD LAB BLOOD ORDERABLES Final Result [facility] [address] [place] [address] * (ABNORMAL) CBC W/O Differential (10/19/2024 8:25 AM EDT) WBC Count 14.10(H) 3.70 - 10.30 10*3/uL LAB HEMATOLOGY METHOD 10/19/2024 8:52 AM EDT [facility] RBC Count 2.61(L) 4.60 - 6.10 10*6/uL LAB HEMATOLOGY METHOD 10/19/2024 8:52 AM EDT [facility] HGB 8.0(L) 13.7 - 17.5 g/dL LAB HEMATOLOGY METHOD 10/19/2024 8:52 AM EDT [facility] HCT 24.3(L) 40.0 - 51.0 % LAB HEMATOLOGY METHOD 10/19/2024 8:52 AM EDT [facility] Platelet Count 318 155 - 369 10*3/uL LAB HEMATOLOGY METHOD 10/19/2024 8:52 AM EDT [facility] MCV 93 79 - 98 fL LAB HEMATOLOGY METHOD 10/19/2024 8:52 AM EDT [facility] MCH 30.7 26.0 - 32.0 pg LAB HEMATOLOGY METHOD 10/19/2024 8:52 AM EDT [facility] MCHC 32.9 30.7 - 35.5 g/dL LAB HEMATOLOGY METHOD 10/19/2024 8:52 AM EDT [facility] RDW 13.4 11.5 - 14.5 % LAB HEMATOLOGY METHOD 10/19/2024 8:52 AM EDT [facility] MPV 9.6 8.8 - 12.5 fL LAB HEMATOLOGY METHOD 10/19/2024 8:52 AM EDT [facility] nRBC 0.0 <=0.0 per 100 WBCs LAB HEMATOLOGY METHOD 10/19/2024 8:52 AM EDT [facility] Blood Venous blood specimen / Unknown Venipuncture / Unknown 10/19/2024 8:25 AM EDT 10/19/2024 8:44 AM EDT us Nirmal Cueto MD LAB BLOOD ORDERABLES Final Result [facility] [address] [place] [address] * (ABNORMAL) POCT glucose meter (10/19/2024 7:35 AM EDT) [facility] POCT Glucose 187(H) 74 - 99 mg/dL [...] Comment 10/19/2024 7:37 AM EDT HEALTHCARE LAB Wedding Photographer ID Job Andrew 10/20/19 7:37 AM EDT HEALTHCARE LAB Device ID [id number] 10/19/2024 7:37 AM EDT [facility]ARE LAB Specimen Type POC Capillary 10/19/2024 7:37 AM EDT [facility] Blood Capillary blood specimen / Unknown 10/19/2024 7:35 AM EDT 10/19/2024 7:37 AM EDT us Terrell Gautam MD LAB POINT OF CARE TE ST DOCKED DEVICE UNSOLICITED RESULTS Final Result Performing Organization Address City/State/[facility] Co de Phone Number [facility] [address] [place] [address] * (ABNORMAL) POCT glucose meter (10/18/2024 7:22 PM EDT) [facility] POCT Glucose 178(H) 74 - 99 mg/dL [...] 10/18/2024 7:24 PM EDT [facility] Wedding Photographer ID Jovan Mahesh 10/18/2024 7:24 PM EDT [facility] Device ID [id number] 10/18/2024 7:24 PM EDT [facility]ALTH[facility]ARE LAB Specimen Type POC Capillary 10/18/2024 7:24 PM EDT [facility] Blood Capillary blood specimen / Unknown 10/18/2024 7:22 PM EDT 10/18/2024 7:24 PM EDT us Terrell Gautam MD LAB POINT OF CARE TE ST DOCKED DEVICE UNSOLICITED RESULTS Final Result Performing Organization Address City/[facility]/ZIP Co de Phone Number [facility] [address] [place] [address] * (ABNORMAL) POCT glucose meter (10/18/2024 6:07 [...] Comment 10/18/2024 6:09 PM EDT HEALTHCARE LAB Wedding Photographer ID David Parks 10/18/2024 6:09 PM EDT HEALTHCARE LAB Device ID [id number] 10/18/2024 6:09 PM EDT [facility]ALTH[facility]ARE LAB Specimen Type POC Capillary 10/18/2024 6:09 PM EDT [facility] Blood Capillary blood specimen / Unknown 10/18/2024 6:07 PM EDT 10/18/2024 6:09 PM EDT us Terrell Gautam MD LAB POINT OF CARE TE ST DOCKED DEVICE UNSOLICITED RESULTS Final Result [facility] [address] [place] [address] * (ABNORMAL) POCT glucose meter (10/18/2024 11:56 [...] Comment 10/21/2024 7:42 AM EDT HEALTHCARE LAB Wedding Photographer ID Venessa Marcano 10/21/2024 7:42 AM EDT [facility] Device ID [id number] 10/21/2024 7:42 AM EDT [facility] Specimen Type POC Capillary 10/21/2024 7:42 AM EDT [facility] Blood Capillary blood specimen / Unknown 10/18/2024 11:56 AM EDT 10/21/2024 7:42 AM EDT us Terrell Gautam MD LAB POINT OF CARE TE ST DOCKED DEVICE UNSOLICITED RESULTS Final Result Performing Organization Address City/State/[facility] Co de Phone Number HEALTHCARE LAB [address] [place] [address] * (ABNORMAL) POCT glucose meter (10/18/2024 9:24 [...] 10/21/2024 7:42 AM EDT [facility] Wedding Photographer ID Emilia Alonso 7:42 AM EDT [facility] Device ID [id number] 10/21/2024 7:42 AM EDT HEALTH[facility]ARE LAB Specimen Type POC Venous 10/21/2024 7:42 AM EDT [facility]ALTH[facility]ARE LAB Blood Venous blood specimen / Unknown 10/18/2024 9:24 AM EDT 10/21/2024 7:42 AM EDT us Terrell Gautam MD LAB POINT OF CARE TE ST DOCKED DEVICE UNSOLICITED RESULTS Final Result [facility] [address] [place] [address] * (ABNORMAL) POCT glucose meter (10/18/2024 7:36 AM EDT) Pathologist [facility] POCT Glucose 215(H) 74 - 99 mg/dL [...] for testing. Comment 10/18/2024 7:38 AM EDT [facility] Wedding Photographer ID Kizzy Godfrey 025 7:38 AM EDT HEALTHCARE LAB Device ID [id number] 10/18/2024 7:38 AM EDT [facility] Specimen Type POC Capillary 10/18/2024 7:38 AM EDT [facility] Blood Capillary blood specimen / Unknown 10/18/2024 7:36 AM EDT 10/18/2024 7:38 AM EDT us Terrell Gautam MD LAB POINT OF CARE TE ST DOCKED DEVICE UNSOLICITED RESULTS Final Result [facility] [address] [place] [address] * (ABNORMAL) CBC (10/18/2024 2:09 AM EDT) Pathologist [facility] WBC Count 16.71(H) 3.70 - 10.30 10*3/uL LAB HEMATOLOGY METHOD 10/18/2024 2:33 AM EDT [facility] RBC Count 2.78(L) 4.60 - 6.10 10*6/uL LAB HEMATOLOGY METHOD 10/18/2024 2:33 AM EDT [facility] HGB 8.5(L) 13.7 - 17.5 g/dL LAB HEMATOLOGY METHOD 10/18/2024 2:33 AM EDT [facility] HCT 25.7(L) 40.0 - 51.0 % LAB HEMATOLOGY METHOD 10/18/2024 2:33 AM EDT [facility] Platelet Count 324 155 - 369 10*3/uL LAB HEMATOLOGY METHOD 10/18/2024 2:33 AM EDT [facility] MCV 92 79 - 98 fL LAB HEMATOLOGY METHOD 10/18/2024 2:33 AM EDT [facility] MCH 30.6 26.0 - 32.0 pg LAB HEMATOLOGY METHOD 10/18/2024 2:33 AM EDT [facility] MCHC 33.1 30.7 - 35.5 g/dL LAB HEMATOLOGY METHOD 10/18/2024 2:33 AM EDT [facility] RDW 13.3 11.5 - 14.5 % LAB HEMATOLOGY METHOD 10/18/2024 2:33 AM EDT [facility] MPV 9.4 8.8 - 12.5 fL LAB HEMATOLOGY METHOD 10/18/2024 2:33 AM EDT [facility] nRBC 0.0 <=0.0 per 100 WBCs LAB HEMATOLOGY METHOD 10/18/2024 2:33 AM EDT [facility] Blood Venous blood specimen / Unknown Venipuncture / Unknown 10/18/2024 2:09 AM EDT 10/18/2024 2:25 AM EDT us Nirmal Cueto MD LAB BLOOD ORDERABLES Final Result [facility] [address] [place] [address] * (ABNORMAL) Basic metabolic panel (10/18/2024 2:09 AM EDT) Glucose, Plasma 206(H) 74 - 99 mg/dL 10/18/2024 2:53 AM EDT [facility] BUN, Plasma 24(H) 8 - 23 mg/dL 10/18/2024 2:53 AM EDT [facility] Creatinine, Plasma 1.17 0.70 - 1.20 mg/dL 10/18/2024 2:53 AM EDT [facility] BUN/Creatinine Ratio 21 10/18/2024 2:53 AM EDT [facility] Sodium, Plasma 136 136 - 145 mmol/L 10/18/2024 2:53 AM EDT [facility] Potassium, Plasma 4.8 3.6 - 4.9 mmol/L 10/18/2024 2:53 AM EDT [facility] Chloride, Plasma 104 97 - 107 mmol/L 10/18/2024 2:53 AM EDT [facility] CO2, Plasma 22 22 - 29 mmol/L 10/18/2024 2:53 AM EDT [facility] Anion Gap 10 6 - 16 mmol/L 10/18/2024 2:53 AM EDT [facility] Total Calcium, Plasma 8.5(L) 8.9 - 10.2 mg/dL 10/18/2024 2:53 AM EDT [facility] eGFRcr 69.2 mL/min/1.7 3m*2 10/18/2024 2:53 AM EDT [facility] Comment:Reported eGFRcr in m L/min/1.73m2 is based the CKD-EPI 2020 equation that does not use a race coefficient. Blood Venous blood specimen / Unknown Venipuncture / Unknown 10/18/2024 2:09 AM EDT 10/18/2024 2:25 AM EDT Nirmal Cueto MD LAB BLOOD ORDERABLES Final Result [facility] [address] [place] [address] * (ABNORMAL) Magnesium (10/18/2024 2:09 AM EDT) Magnesium, Plasma 1.8(L) 1.9 - 2.4 mg/dL 10/18/2024 2:53 AM EDT [facility] Blood Venous blood specimen / Unknown Venipuncture / Unknown 10/18/2024 2:09 AM EDT 10/18/2024 2:25 AM EDT us Nirmal Cueto MD LAB BLOOD ORDERABLES Final Result [facility] [address] [place] [address] * Phosphorus (10/18/2024 2:09 AM EDT) Phosphorus, Plasma 3.7 2.5 - 4.5 mg/dL 10/18/2024 2:53 AM EDT [facility] Blood Venous blood specimen / Unknown Venipuncture / Unknown 10/18/2024 2:09 AM EDT 10/18/2024 2:25 AM EDT Nirmal Cueto MD LAB BLOOD ORDERABLES Final Result Performing Organization Address [facility] Co de Phone Number [facility] [address] [place] [address] * (ABNORMAL) Protime-INR (10/18/2024 2:09 AM EDT) Prothrombin Time 14.5(H) 12.0 - 14.3 sec LAB COAGULATION METHOD 10/18/2024 2:53 AM EDT [facility] INR 1.1 0.9 - 1.1 LAB COAGULATION METHOD 10/18/2024 2:53 AM EDT [facility] Blood Venous blood specimen / Unknown Venipuncture / Unknown 10/18/2024 2:09 AM EDT 10/18/2024 2:25 AM EDT Narrative [facility] - 10/18/2024 2:53 AM [...] BLOOD ORDERABLES Final Result Performing Organization Address City/[facility]/ZIP Co de Phone Number [facility] [address] [place] [address] * (ABNORMAL) POCT glucose meter (10/18/2024 2:08 AM EDT) [facility] POCT Glucose 202(H) 74 - 99 mg/dL [...] Comment 10/18/2024 2:10 AM EDT [facility] Wedding Photographer ID Jourdan Grimes II 10/18/2024 2:10 AM EDT [facility] LAB Device ID [id number] 10/18/2024 2:10 AM EDT [facility] Specimen Type POC Capillary 10/18/2024 2:10 AM EDT [facility] Blood Capillary blood specimen / Unknown 10/18/2024 2:08 AM EDT 10/18/2024 2:10 AM EDT us Terrell Gautam MD LAB POINT OF CARE TE ST DOCKED DEVICE UNSOLICITED RESULTS Final Result Performing Organization Address City/State/[facility] Co de Phone Number HEALTHCARE LAB [address] [place] [address] * (ABNORMAL) POCT glucose meter (10/17/2024 10:07 PM EDT) [facility] POCT Glucose 300(H) 74 - 99 mg/dL [...] Comment 10/17/2024 10:10 PM EDT [facility] Wedding Photographer ID Jourdan Grimes II 10/17/2024 10:10 PM EDT [facility]ARE LAB Device ID [id number] 10/17/2024 10:10 PM EDT [facility] LAB Specimen Type POC Capillary 10/17/2024 10:10 PM EDT [facility] Blood Capillary blood specimen / Unknown 10/17/2024 10:07 PM EDT 10/17/2024 10:10 PM EDT Terrell Gautam MD LAB POINT OF CARE TE ST DOCKED DEVICE UNSOLICITED RESULTS Final Result Performing Organization Address City/[facility] Co de Phone Number [facility]ALTH[facility]ARE LAB [address] [place] [address] * (ABNORMAL) POCT glucose meter (10/17/2024 8:07 [...] Comment 10/17/2024 8:10 PM EDT [facility] Wedding Photographer ID Jourdan Grimes II 10/17/2024 8:10 PM EDT [facility] LAB Device ID [id number] 10/17/2024 8:10 PM EDT [facility] Specimen Type POC Capillary 10/17/2024 8:10 PM EDT [facility] Blood Capillary blood specimen / Unknown 10/17/2024 8:07 PM EDT 10/17/2024 8:10 PM EDT us Terrell Gautam MD LAB POINT OF CARE TE ST DOCKED DEVICE UNSOLICITED RESULTS Final Result Performing Organization Address City/[facility]/ZIP Co de Phone Number [facility] [address] [place] [address] * (ABNORMAL) POCT glucose meter (10/17/2024 4:01 [...] Comment 10/17/2024 4:03 PM EDT [facility] LAB Wedding Photographer ID Keisha Waller 10/17/2024 4:03 PM EDT [facility]ALTH[facility]ARE LAB Device ID [id number] 10/17/2024 4:03 PM EDT [facility] LAB Specimen Type POC Capillary 10/17/2024 4:03 PM EDT [facility] Blood Capillary blood specimen / Unknown 10/17/2024 4:01 PM EDT 10/17/2024 4:03 PM EDT us Terrell Gautam MD LAB POINT OF CARE TE ST DOCKED DEVICE UNSOLICITED RESULTS Final Result Performing Organization Address City/State/[facility] Co de Phone Number HEALTHCARE LAB [address] [place] [address] * (ABNORMAL) POCT glucose meter (10/17/2024 1:25 PM EDT) [facility] POCT Glucose 225(H) 74 - 99 mg/dL [...] Comment 10/17/2024 1:27 PM EDT [facility] Wedding Photographer ID Kizzy Godfrey 025 1:27 PM EDT [facility]ARE LAB Device ID [id number] 10/17/2024 1:27 PM EDT [facility] LAB Specimen Type POC Capillary 10/17/2024 1:27 PM EDT [facility] Blood Capillary blood specimen / Unknown 10/17/2024 1:25 PM EDT 10/17/2024 1:27 PM EDT us Terrell Gautam MD LAB POINT OF CARE TE ST DOCKED DEVICE UNSOLICITED RESULTS Final Result Performing Organization Address City/[facility] Co de Phone Number [facility]ALTH[facility]ARE LAB [address] [place] [address] * [place] Less than 1 Hour Intraoperative (10/17/2024 1:18 PM EDT) Narrative IMAGING - 10/17/2024 2:05 PM EDT Images were obtained for surgical purposes. See Terrell Gautam's surgical note in the patient's chart for the findings. Terrell Gautam MD IMG FLUOROSCOPY PROCEDURES Fi nal Result Performing Organization Address [facility] Co de Phone Number IMAGING * POCT ACT (10/17/2024 12:23 PM EDT) ACT+ (HIGH RANGE) 211 68 - 600 Seconds 10/29/2024 7:28 AM EDT [facility] Wedding Photographer ID Donna Mcmillan 10/29/2024 7:28 AM EDT [facility] ACT Device ID [id number] 10/29/2024 7:28 AM EDT [facility] Comment 10/29/2024 7:28 AM EDT [facility] Comment: ACT performed by [...] UNSOLICITED RESULTS Final Result Performing Organization Address [facility] Co de Phone Number [facility]ALTH[facility]ARE LAB [address] [place], [place] [id number] [place] [address] LAB [address] [place] [address] * (ABNORMAL) Blood gas, arterial (10/17/2024 11:48 AM EDT) pH, Arterial 7.34 7.31 - 7.42 LAB HEMATOLOGY METHOD 10/17/2024 11:54 AM EDT [facility] pCO2, Arterial 41 32 - 45 mmHg LAB HEMATOLOGY METHOD 10/17/2024 11:54 AM EDT [facility] pO2, Arterial 202 >80 mmHg LAB HEMATOLOGY METHOD 10/17/2024 11:54 AM EDT [facility] SO2, Measured, Arterial 100(H) 94 - 98 % LAB HEMATOLOGY METHOD 10/17/2024 11:54 AM EDT [facility] Base Excess, Arterial -3.2(L) -2.0 - 3.0 mmol/L LAB HEMATOLOGY METHOD 10/17/2024 11:54 AM EDT [facility] Bicarbonate, Calculated, Arterial 22 22 - 26 mmol/L LAB HEMATOLOGY METHOD 10/17/2024 11:54 AM EDT [facility] Hematocrit, Whole Blood 28.6(L) 40.0 - 51.0 % LAB HEMATOLOGY METHOD 10/17/2024 11:54 AM EDT [facility] Sodium, Whole Blood 137 136 - 145 mmol/L LAB HEMATOLOGY METHOD 10/17/2024 11:54 AM EDT [facility] Potassium, Whole Blood 4.5 3.6 - 4.9 mmol/L LAB HEMATOLOGY METHOD 10/17/2024 11:54 AM EDT [facility] Chloride, Whole Blood 112(H) 97 - 107 mmol/L LAB HEMATOLOGY METHOD 10/17/2024 11:54 AM EDT [facility] Glucose, Whole Blood 201(H) 74 - 99 mg/dL LAB HEMATOLOGY METHOD 10/17/2024 11:54 AM EDT [facility] Ionized Calcium, Whole Blood 4.8 4.6 - 5.1 mg/dL LAB HEMATOLOGY METHOD 10/17/2024 11:54 AM EDT [facility] Lactate, Arterial, Whole Blood 2.3(H) 0.5 - 1.6 mmol/L LAB HEMATOLOGY METHOD 10/17/2024 11:54 AM EDT [facility] Blood Arterial blood specimen / Unknown Arterial Puncture / Unknown 10/17/2024 11:48 AM EDT 10/17/2024 11:53 AM EDT us Jenna Lopez CRNA LAB BLOOD ORDERABLES Final Re sult [facility] [address] [place] [address] * POCT ACT (10/17/2024 11:41 AM EDT) ACT+ (HIGH RANGE) 175 68 - 600 Seconds 10/29/2024 7:28 AM EDT [facility] LAB Wedding Photographer ID Oneyda Alicea 10/29/2024 7:28 AM EDT [facility] LAB ACT Device ID [id number] 10/29/2024 7:28 AM EDT [facility] LAB Comment 10/29/2024 7:28 AM EDT [facility] Comment: ACT performed by [...] ST DOCKED DEVICE UNSOLICITED RESULTS Final Result [facility] [address] LAB [address] [place] [address] * POCT ACT (10/17/2024 11:11 AM EDT) ACT+ (HIGH RANGE) 252 68 - 600 Seconds 10/29/2024 7:28 AM EDT [facility] LAB Wedding Photographer ID Donna Mcmillan 10/29/2024 7:28 AM EDT [facility] ACT Device ID [id number] 10/29/2024 7:28 AM EDT [facility] LAB Comment 10/29/2024 7:28 AM EDT [facility] Comment: ACT performed by [...] RESULTS Final Result [facility] [address] LAB [address] [place] [address] * (ABNORMAL) Blood gas, arterial (10/17/2024 10:46 AM EDT) pH, Arterial 7.35 7.31 - 7.42 LAB HEMATOLOGY METHOD 10/17/2024 10:56 AM EDT [facility] pCO2, Arterial 42 32 - 45 mmHg LAB HEMATOLOGY METHOD 10/17/2024 10:56 AM EDT [facility] pO2, Arterial 161 >80 mmHg LAB HEMATOLOGY METHOD 10/17/2024 10:56 AM EDT [facility] SO2, Measured, Arterial 100(H) 94 - 98 % LAB HEMATOLOGY METHOD 10/17/2024 10:56 AM EDT [facility] Base Excess, Arterial -2.2(L) -2.0 - 3.0 mmol/L LAB HEMATOLOGY METHOD 10/17/2024 10:56 AM EDT [facility] Bicarbonate, Calculated, Arterial 23 22 - 26 mmol/L LAB HEMATOLOGY METHOD 10/17/2024 10:56 AM EDT [facility] Hematocrit, Whole Blood 29.9(L) 40.0 - 51.0 % LAB HEMATOLOGY METHOD 10/17/2024 10:56 AM EDT [facility] Sodium, Whole Blood 138 136 - 145 mmol/L LAB HEMATOLOGY METHOD 10/17/2024 10:56 AM EDT [facility] Potassium, Whole Blood 4.0 3.6 - 4.9 mmol/L LAB HEMATOLOGY METHOD 10/17/2024 10:56 AM EDT [facility] Chloride, Whole Blood 110(H) 97 - 107 mmol/L LAB HEMATOLOGY METHOD 10/17/2024 10:56 AM EDT [facility] Glucose, Whole Blood 174(H) 74 - 99 mg/dL LAB HEMATOLOGY METHOD 10/17/2024 10:56 AM EDT [facility] Ionized Calcium, Whole Blood 5.1 4.6 - 5.1 mg/dL LAB HEMATOLOGY METHOD 10/17/2024 10:56 AM EDT [facility] Lactate, Arterial, Whole Blood 1.4 0.5 - 1.6 mmol/L LAB HEMATOLOGY METHOD 10/17/2024 10:56 AM EDT [facility] Blood Arterial blood specimen / Unknown Arterial Puncture / Unknown 10/17/2024 10:46 AM EDT 10/17/2024 10:54 AM EDT us Jenna Lopez CRNA LAB BLOOD ORDERABLES Final Re sult [facility] [address] [place] [address] * POCT ACT (10/17/2024 10:37 AM EDT) ACT+ (HIGH RANGE) 206 68 - 600 Seconds 10/29/2024 7:28 AM EDT [facility] Wedding Photographer ID Donna Mcmillan 10/29/2024 7:28 AM EDT [facility] ACT Device ID [id number] 10/29/2024 7:28 AM EDT [facility] Comment 10/29/2024 7:28 AM EDT [facility] Comment: ACT performed by [...] ST DOCKED DEVICE UNSOLICITED RESULTS Final Result [facility] [address] LAB [address] [place] [address] * Surgical Pathology Exam (10/17/2024 10:27 AM EDT) Case Report Surgical Pathology Case: [id number] Authorizing Provider: Terrell Gautam MD Collected: 10/17/2024 1027 Ordering Location: [facility] Received: 10/17/2024 1325 Pathologist: Haydee Osborne MD Specimen: Other (specify site), left common femoral plaque 10/21/2024 10:16 AM EDT [facility] Final Diagnosis A. LEFT COMMON FEMORAL PLAQUE, EXCISION: - CALCIFIED PLAQUE 10/21/2024 10:16 AM EDT [facility] at 1016 EDT Clinical Information Critical limb ischemia of left lower extremity [I70.222] 10/21/2024 10:16 AM EDT [facility] Gross Description A. LEFT COMMON FEMORAL PLAQUE Received in formalin labeled l eft common femoral plaque , is one aggregate of red-gabriel hard portions of plaque measuring 3.7 x 2.5 x 0.9 cm. The specimen is serially sectioned and outside medical sales representative sections are submitted in cassette A1. Cold Time: <1m Kenia Aceves 10/21/2024 10:16 AM EDT [facility] Note: A resident was involved in the service. I attest I examined the relevant preparations for the specimens and confirmed the diagnosis or interpretation. 10/21/2024 10:16 AM EDT [facility] Tissue Topography unknown / Unknown 10/17/2024 10:27 AM EDT 10/17/2024 1:25 PM EDT Comment:Pre-op diagnosis: Critical limb ischemia of left lower extremity [I70.222] us Terrell Gautam MD LAB PATHOLOGY ORDERABLES Gwen grimaldo Result [facility] [address] [place] [address] * POCT ACT (10/17/2024 10:03 AM EDT) ACT+ (HIGH RANGE) 244 68 - 600 Seconds 10/29/2024 7:28 AM EDT [facility] Wedding Photographer ID Donna Mcmillan 10/29/2024 7:28 AM EDT [facility] ACT Device ID [id number] 10/29/2024 7:28 AM EDT [facility] Comment 10/29/2024 7:28 AM EDT [facility] Comment: ACT performed by [...] ST DOCKED DEVICE UNSOLICITED RESULTS Final Result [facility] [address] LAB [address] [place] [address] * (ABNORMAL) Blood gas, arterial (10/17/2024 9:45 AM EDT) pH, Arterial 7.37 7.31 - 7.42 LAB HEMATOLOGY METHOD 10/17/2024 9:55 AM EDT [facility] pCO2, Arterial 43 32 - 45 mmHg LAB HEMATOLOGY METHOD 10/17/2024 9:55 AM EDT [facility] pO2, Arterial 177 >80 mmHg LAB HEMATOLOGY METHOD 10/17/2024 9:55 AM EDT [facility] SO2, Measured, Arterial 100(H) 94 - 98 % LAB HEMATOLOGY METHOD 10/17/2024 9:55 AM EDT [facility] Base Excess, Arterial -0.5 -2.0 - 3.0 mmol/L LAB HEMATOLOGY METHOD 10/17/2024 9:55 AM EDT [facility] Bicarbonate, Calculated, Arterial 25 22 - 26 mmol/L LAB HEMATOLOGY METHOD 10/17/2024 9:55 AM EDT [facility] Hematocrit, Whole Blood 30.0(L) 40.0 - 51.0 % LAB HEMATOLOGY METHOD 10/17/2024 9:55 AM EDT [facility] Sodium, Whole Blood 137 136 - 145 mmol/L LAB HEMATOLOGY METHOD 10/17/2024 9:55 AM EDT [facility] Potassium, Whole Blood 4.3 3.6 - 4.9 mmol/L LAB HEMATOLOGY METHOD 10/17/2024 9:55 AM EDT [facility] Chloride, Whole Blood 108(H) 97 - 107 mmol/L LAB HEMATOLOGY METHOD 10/17/2024 9:55 AM EDT [facility] Glucose, Whole Blood 191(H) 74 - 99 mg/dL LAB HEMATOLOGY METHOD 10/17/2024 9:55 AM EDT [facility] Ionized Calcium, Whole Blood 5.0 4.6 - 5.1 mg/dL LAB HEMATOLOGY METHOD 10/17/2024 9:55 AM EDT [facility] Lactate, Arterial, Whole Blood 1.3 0.5 - 1.6 mmol/L LAB HEMATOLOGY METHOD 10/17/2024 9:55 AM EDT [facility] Blood Arterial blood specimen / Unknown Arterial Line / Unknown 10/17/2024 9:45 AM EDT 10/17/2024 9:52 AM EDT us Jenna Lopez [facility] LAB BLOOD ORDERABLES Final Re sult [facility] [address] [place] [address] * (ABNORMAL) Blood gas, arterial (10/17/2024 8:47 AM EDT) pH, Arterial 7.37 7.31 - 7.42 LAB HEMATOLOGY METHOD 10/17/2024 8:59 AM EDT [facility] pCO2, Arterial 43 32 - 45 mmHg LAB HEMATOLOGY METHOD 10/17/2024 8:59 AM EDT [facility] pO2, Arterial 205 >80 mmHg LAB HEMATOLOGY METHOD 10/17/2024 8:59 AM EDT [facility] SO2, Measured, Arterial 100(H) 94 - 98 % LAB HEMATOLOGY METHOD 10/17/2024 8:59 AM EDT [facility] Base Excess, Arterial -0.3 -2.0 - 3.0 mmol/L LAB HEMATOLOGY METHOD 10/17/2024 8:59 AM EDT [facility] Bicarbonate, Calculated, Arterial 25 22 - 26 mmol/L LAB HEMATOLOGY METHOD 10/17/2024 8:59 AM EDT [facility] Hematocrit, Whole Blood 31.3(L) 40.0 - 51.0 % LAB HEMATOLOGY METHOD 10/17/2024 8:59 AM EDT [facility] Sodium, Whole Blood 138 136 - 145 mmol/L LAB HEMATOLOGY METHOD 10/17/2024 8:59 AM EDT [facility] Potassium, Whole Blood 4.0 3.6 - 4.9 mmol/L LAB HEMATOLOGY METHOD 10/17/2024 8:59 AM EDT [facility] Chloride, Whole Blood 108(H) 97 - 107 mmol/L LAB HEMATOLOGY METHOD 10/17/2024 8:59 AM EDT [facility] Glucose, Whole Blood 162(H) 74 - 99 mg/dL LAB HEMATOLOGY METHOD 10/17/2024 8:59 AM EDT [facility] Ionized Calcium, Whole Blood 5.2(H) 4.6 - 5.1 mg/dL LAB HEMATOLOGY METHOD 10/17/2024 8:59 AM EDT [facility] Lactate, Arterial, Whole Blood 1.7(H) 0.5 - 1.6 mmol/L LAB HEMATOLOGY METHOD 10/17/2024 8:59 AM EDT [facility] Blood Arterial blood specimen / Unknown Arterial Puncture / Unknown 10/17/2024 8:47 AM EDT 10/17/2024 8:58 AM EDT us Jenna Lopez [facility] LAB BLOOD ORDERABLES Final Re sult [facility] [address] [place] [address] * POCT ACT (10/17/2024 8:46 AM EDT) ACT+ (HIGH RANGE) 101 68 - 600 Seconds 10/29/2024 7:28 AM EDT [facility]ALTH[facility] Wedding Photographer ID [email or web address] Maya 10/29/2024 7:28 AM EDT [facility]ALTH[facility] LAB ACT Device ID [id number] 10/29/2024 7:28 AM EDT [facility]ALTH[facility] LAB Comment 10/29/2024 7:28 AM EDT [facility] Comment: ACT performed by [...] UNSOLICITED RESULTS Final Result Performing Organization Address [facility] de Phone Number [facility] [address] LAB [address] [place] [address] * Type and Screen (10/17/2024 7:19 AM [...] Final Result Performing Organization Address [facility] de Phone Number BLOOD BANK [address] [place] [address] * (ABNORMAL) POCT glucose meter (10/17/2024 6:44 AM EDT) [facility] POCT Glucose 178(H) 74 - 99 mg/dL [...] 10/17/2024 6:49 AM EDT [facility] Wedding Photographer ID Hunter Burroughs 10/18/19 6:49 AM EDT [facility] Device ID [id number] 10/17/2024 6:49 AM EDT [facility] Specimen Type POC Capillary 10/17/2024 6:49 AM EDT [facility]ALTH[facility] LAB Blood Capillary blood specimen / Unknown 10/17/2024 6:44 AM EDT 10/17/2024 6:49 AM EDT Terrell Gautam MD LAB POINT OF CARE TE ST DOCKED DEVICE UNSOLICITED RESULTS Final Result [facility] [address] [place] [address] documented in this encounter Visit Diagnoses Diagnosis [...] documented as of this encounter Care Teams Litigation Legal Secretary Relationship Specialty Start Date End Date Asad Victor MD [address] [place] [address] PCP - General 10/07/22 documented as of this encounter
--- OUTSIDE RECORDS SUMMARY | 2024-10-17 07:51 | XMS_ITS | Encounter Summary ---
Author Organization [facility] Address [address] [id number] Care Team Providers Care Priest Name Role Phone Asad Victor MD Primary Care Provider + [phone] Reason for Visit * Auth/Cert (Routine) Specialty Diagnoses / Procedures Referred By Contac t Referred To Contact Diagnoses Critical limb ischemia of left lower extremity Critical limb ischemia of left lower extremity [I70.222] Procedures [place] VEIN BYPASS GRAFT,FEM-POP CREATION, BYPASS, ARTERIAL, FEMORAL TO POPLITEAL Terrell Gautam MD [address] [facility] [address] [place] [address] Phone: tel: fax: PAV A OPERATING ROOM [address] [place] [address] Phone: tel: Referral ID Status Reason Start Date Expiration Date Visits Re quested Visits Authorized [id number] 1 1 Encounter Details Date Type Department Care Team (Late st Contact Info) Description 10/17/2024 7:51 AM EDT Anesthesia Event [facility] A OPERATING ROOM [address] [place] [address] Maria Fernanda Mccallum MD [address] [place] [address] Anesthesia Record Procedure Summary Procedure [...] Hand; Site Prep: Chlorhexidine ; Local Anesth: [place]; Technique: Anatomical landmarks; Inserted by: CHRISTIAN Acuna; [...] any time in the past 12 m [facility], were you homeless or [...] drink first t dino in the morning (EYE-IN STORE MARKETING REPRESENTATIVE) to steady your nerves or to [...] * Anesthesia Postprocedure Evaluation - Jenna Lopez, SALESPERSON PIANOS AND ORGANS - 10/17/2024 1:29 PM EDT Patient: Mono [...] by Swetha Villareal MD Staffing Performed: ISH SALESPERSON PIANOS [employer] ORGANS: Jenna Lopez CRNA * Anesthesia Procedure Notes - Jenna Loepz CRNA - 10/17/2024 9:00 AM EDT Associated Order(s): Airway Airway Date/Time: 10/17/2024 8:03 AM Reason: elective Airway not difficult General Information and Staff Patient location during procedure: [place] SALESPERSON PIANOS AND ORGANS: Jenna Lopez CRNA Performed: SALESPERSON PIANOS AND ORGANS Patient Condition Indications for airway management: anesthesia [...] HLD, HTN, RLS who presented to 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 CORONARY ANGIOPLASTY Left Coronary Angiography With Concomitant Left Heart Catheterization from [place] ??? CORONARY ARTERY BYPASS GRAFT N/A 2018 [...] Description 11/26/2024 2:00 PM EDT Hospital Encounter [facility] [address] [place] [address] 11/26/2024 2:30 PM EDT Hospital Encounter [facility] [address] [place] [address] 11/26/2024 3:20 PM EDT Office Visit [facility] [address] [place] [address] Elisabet Schuster, GLENDA [address] [facility] [address] [place] [address] 11/29/2024 2:30 PM EDT Office Visit [facility] [address] [place] [address] Oscar Appiah MD [facility] [address] [place] [address] documented as of this encounter Goals Goal [...] ANESTHESIA PLACEHOLDER Routine 10/17/2024 8:03 AM EDT [place] AN ELECTIVE ENDOTRACHEAL AIRWAY Routine 10/17/2024 8:03 [...] Performed by Swetha Villareal MD Staffing Performed: SALESPERSON PIANOS AND ORGANS SALESPERSON PIANOS AND ORGANS: Jenna Lopez CRNA Maria Fernanda Mccallum MD ANESTHESIA ORDERABLES Edite d Result - Final * [place] AN ELECTIVE ENDOTRACHEAL AIRWAY, PB ANESTHESIA PLACEHOLDER (10/17/2024 8:03 AM EDT) Narrative Jenna Lopez CRNA - 10/17/2024 8:03 AM EDT Jenna Lopez CRNA 10/17/2024 9:00 AM Airway Date/Time: 10/17/2024 8:03 AM Reason: elective Airway not difficult General Information and Staff Patient location during procedure: [place] SALESPERSON PIANOS AND ORGANS: Jenna Lopez CRNA Performed: ISH Patient Condition [...] Mccallum MD ANESTHESIA ORDERABLES Final Result * [facility] AN POCUS CARDIAC PROCDOC (10/17/2024 [...] Trace AR. The images were Saved in [employer] - [employer]. The study was technically adequate. [...] Starting on Yadira 10/17/24 at 0914, Until Ydaira 10/17/24 at 1329, Routine, Anesthesia Intraprocedure Given [...] documented as of this encounter Care Teams Priest Relationship Specialty Start Date End Date Asad Victor MD [address] [place] [address] PCP - General 10/07/22 documented as of this encounter
--- OUTSIDE RECORDS SUMMARY | 2024-10-17 08:00 | XMS_ITS | Encounter Summary ---
Author Organization [facility] Address [address] [place] [address] Care Team Providers Care Higher Education Administrator Name Role Phone Asad Victor MD Primary Care Provider + [phone] Reason for Visit * Auth/Cert (Routine) Specialty Diagnoses / Procedures Referred By Contac t Referred To Contact Diagnoses Critical limb ischemia of left lower extremity Critical limb ischemia of left lower extremity [I70.222] Procedures MI VEIN BYPASS GRAFT,FEM-POP CREATION, BYPASS, ARTERIAL, FEMORAL TO POPLITEAL Terrell Gautam MD [address] [address] Phone: tel: fax: [facility] [address] [place] [address] Phone: tel: Referral ID Status Reason Start Date Expiration Date Visits Re quested Visits Authorized [id number] 1 1 Encounter Details Date Type Department Care Team (Late st Contact Info) Description 10/17/2024 8:00 AM EDT - 10/17/2024 2:50 PM EDT Surgery [facility] [address] [place] [address] Terrell Gautam MD [address] [address] CREATION, BYPASS, ARTERIAL, FEMORAL TO POPLITEAL [54851 (CPT )] Surgery Details Date/Time Status Location [...] any time in the past 12 m [facility], were you homeless or [...] first t dino in the morning (EYE-SENIOR BUSINESS ANALYST) to steady your nerves or to get rid of a hangover? 0 10/18/2021 CAGE Questionnaire Score 0 022 Utilities Answer Date Recorded In the past 12 months has th e [employer], gas, oil, or water [employer] threatened to shut off services in your [...] provided Taken 10/17/20242107 by Jourdan Grimes II, bagger meat Review/Management: medications reviewed Problem: Skin Injury Risk [...] Ongoing, Progressing Intervention: Promote Activity and Functional [place] Flowsheets (Taken 10/19/2024 1048) Self-Care Promotion: BADL personal objects within reach meal set-up provided * Yuni Ramires - Keyla Chow - 10/19/2024 11:45 AM EDT Images from the original note were not included. [id number] After Peripheral Artery Bypass Surgery: In the [...] home. Last Reviewed Date: 2023 00:00:00 ?? [id number] [employer]. All rights reserved. This information is not intended as a substitute for professional medical care. Always follow your healthcare professional's instructions. * Progress Notes - Emelina Friend - 10/19/2024 11:44 AM EDT Case Management Adult Progress Note Bev Bobby 64 y.o. male CSN: [id number] Admission: 10/17/2024 6:21 AM Primary Problem: Critical [...] if any other needs arise. Emelina Friend EMERGENCY CARE ATTENDANT, BASEBALL CLUB MANAGER Social Work Case Management * Yuni Ramires - Keyla Chow - 10/19/2024 11:44 AM EDT Images from the original note were not included. [id number] Peripheral Artery Disease (PAD) Peripheral artery disease [...] cause. Last Reviewed Date: 2024 00:00:00 ?? 1981-0766 [employer]. All rights reserved. This information is not intended as a substitute for professional medical care. Always follow your healthcare professional's instructions. * Yuni Ramires - Keyla Chow - 10/19/2024 11:44 AM EDT Images from the original note were not included. 39141 Leg Artery Emergencies: Critical Limb Ischemia (CLI) [...] appointments. Last Reviewed Date: 2023 00:00:00 ?? 5080-0000 [employer]. All rights reserved. This information is not intended as a substitute for professional medical care. Always follow your healthcare professional's instructions. * Discharge Summary - Dandy Baltazar MD - 10/19/2024 11:31 AM EDT Hospitalization Admit Date/Time: 10/17/2024 6:21 AM Admitting Attending: Terrell Gautam Discharge Date: 10/19/24 Discharge Attending Physician: Nirmal Cueto MD PCP name and Address: Asad Victor MD (Inactive) [address] [facility] [address] Referring provider name and address: Timothy Marques PA [address] [place] [address] Chief Concern, Brief History of Present Illness, and Hospital Course Bev Bobby is an 64 y.o. 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 He [...] Medications These medications were sent to [facility] [place], [place] - [address] [facility] [address] [facility] [address] [facility] [address] acetaminophen 500 MG tablet clopidogrel 75 MG [...] of water. 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 He [...] provided Taken 10/17/20242107 by Jourdan Grimes II bagger meat Review/Management: medications reviewed Problem: Skin Injury Risk [...] Ongoing, Progressing Intervention: Promote Activity and Functional [place] Flowsheets (Taken 10/19/2024 1048) Self-Care Promotion: BADL [...] evaluation. PARTICIPANTS IN CARE Visitors Present No Stockroom Inventory Clerk (if applicable) PRESENTATION Oxygen Oxygen Therapy: None [...] Level of Mobility Ambulatory- household only Mobility [place] Independent gait with device (rollator) History of [...] numbness in rodney) BED MOBILITY Level of [place] Physical/Non- physical Assist Adaptive Equipment Utilized Rolling/ Turning Scooting/ Bridging Modified independence (anteriorly to EOB) Bed rails Supine to Sit Modified [place] (to the right) (HOB flat) Bed rails Sit to Supine Interventions HOB flat to simulate home environment TRANSFERS Level of [place] Physical/Non- physical Assist Adaptive Equipment Utilized Sit [...] stable surfaces during transitions. AMBULATION Level of [place] Distance Adaptive Equipment Utilized Ambulation Standby assist, [...] Posture: Forward head, Rounded shoulders Level of [place] Balance Support Interventions Static Sit Independent Right [...] Assessments Standardized Assessments: AMPA 6-Clicks Mobility Assessment [facility] 6-Clicks Mobility Assessment Difficulty patient has [...] 3-5 steps with a railing?: A little [facility] 6-Clicks Mobility Assessment Total : 22 [...] Recommended: Patient owns appropriate equipment History Bev oBbby is 64 y.o. male admitted 10/17/2024 for [...] evaluation/session. Participants in Care Family/Caregiver Present: No Stockroom Inventory Clerk: Not Applicable Presentation Oxygen Therapy: None (Room [...] Level of Mobility: Ambulatory- household only Mobility [place]: Independent gait with device (rollator) History of [...] Mobility Bed Mobility Exam: Scooting/Bridging Level of [place]: Modified independence (anteriorly to EOB) Assistive Device: Bed rails Bed Mobility Exam: Supine to Sit Level of [place]: Modified [place] (to the right) Physical/Nonphysical Assist: (HOB flat) Assistive Device: Bed rails Transfers Transfer Exam: Sit to stand Level of [place]: Stand-by assist Physical/Nonphysical Assist: Supervision, Verbal Cues, Minimal cues Assistive Device: Walker, rolling Transfer Exam: Stand to Sit Level of [place]: Stand-by assist Physical/Nonphysical Assist: Supervision, Verbal Cues, [...] regarding toileting at this time. Standardized Assessments [facility] 6-Click Daily Activities Help from Other: Don/Doff Regular Lower Body Clothings: None Help From Other: Bathing: Little Help From Other: Toileting: None Help From Other: Don/Doff Upper Body Clothings: None Help From Other: Grooming: None Help From Other: Eating Meals: None [facility] 6 Click - Daily Activities Score: 23/24 [facility] Scoring Interpretation: Scores greater than 20.5 [...] Note Bev Bobby 64 y.o. male CSN: [id number] Admission: 10/17/2024 6:21 AM Primary Problem: Critical limb ischemia of left lower extremity Monomer Recovery Operator reviewed chart and spoke with patient to complete this Initial Case Management Assessment. PCP: Asad Victor MD (Inactive) - Dr. Palomo Preferred pharmacy is [facility] Emergency Contact: Extended Emergency Contact Information Primary Emergency Contact: Patti Hill Relation: Sister Stockroom Inventory Clerk needed? No Insurance: Primary Visit Coverage Payer Plan Sponsor Code Group Number Group Name [facility] MEDICARE [facility] MEDICARE REPLACEMENT [id number] Primary Visit Coverage Subscriber Subscriber ID Subscriber Name Subscriber [facility] Subscriber Address [id number] BEV BOBBY [id number] [place] [address] Secondary Visit Coverage Payer Plan Sponsor Code Group Number Group Name [employer] MEDICAID [facility] Secondary Visit Coverage Subscriber Subscriber ID Subscriber Name Subscriber [facility] Subscriber Address [id number] BEV BOBBY [id number] [place] [address] Patient information: Primary Caregiver: Self Daily Living Activities: Functional Status: Independent Living Arrangements: Alone Type of Residence: Private residence, Single Level [address] [place] [address] Current DME: Equipment Currently Used at Home: joy monterroso Income Information: Income Source: Retired Income/Expense Information: Income meets expenses Current Resources Utilized: Food [place] Housing Circumstances-Z Codes: Housing Circumstances (select all [...] Dialysis Services: None. Living Will/Advance Directive/Power of Drug Safety Specialist /Guardian: Denied. Additional Comments: Patient is not medically ready for discharge. SW will continue to follow. Mariia Monterroso BASEBALL CLUB MANAGER * Care Plan - Emilia Alonso [...] from the original note were not included. [facility] Department of Surgery Division of [...] Prevention: activity supervised assistive device/personal items within [facility] fall prevention program maintained lighting adjusted [...] Agree with above assessment and evaluation from resident/MOUSE BREEDER. * Op Note - Terrell Gautam MD - 10/17/2024 8:52 AM EDT Operative Note Date: 10/17/24 Location: [facility] Name: Bev Bobby, : 1960, Diagnoses: Pre-op Diagnosis Critical limb ischemia of left lower extremity Common femoral artery pseudoaneurysm Post-op Diagnosis Critical limb ischemia of left lower extremity Common femoral artery pseudoaneurysm Procedure(s): Left common/superficial/profunda femoral thromboendarterectomy with bovine patch repair Left external iliac artery/REGIONAL SALES ENGINEER stent Attending Surgeon(s): * Terrell Gautam - Primary Rocket Test Fire Worker(s): * Luna Beckett MD - Resident - Assisting * Dandy Baltazar MD - Fellow Savtia Villareal DO - Fellow Anesthesia: General ASA: [...] Necessity Reasons Recent surgery contiguous with urinary tract/JACKER FEEDER/colorectal 10/17/24 190 Output (mL) 50 mL 10/18/24 08 Implants Type Name Action Serial No. VASCUGUARD 8 X 8 - [id number] Implanted STENT ENDOPROSTHESIS VIABAHN 9FR [id number] - [id number] Implanted [id number] Specimen: Specimens ID Source Frozen? 1 Other [...] and distal control. We then proceeded with yepwl-mgl-tcni exposure of the popliteal artery. A medial [...] balloon dilated thestent with a 9 mm [place]. We closed the arteriotomy with a single [...] 10/17/2024 8:52 AM EDT Date: 10/17/24 Location: [facility] Name: Bev Bobby, : 1960, Diagnoses: Pre-op Diagnosis Critical limb ischemia of left lower extremity Common femoral artery pseudoaneurysm Post-op Diagnosis Critical limb ischemia of left lower extremity Common femoral artery pseudoaneurysm Procedure(s): Left common/superficial/profunda femoral thromboendarterectomy with bovine patch repair Left external iliac artery/REGIONAL SALES ENGINEER stent Attending Surgeon(s): * Terrell Gautam - Primary Rocket Test Fire Worker(s): * Luna Beckett MD - Resident - Assisting * Dandy Baltazar MD - Fellow Anesthesia: General ASA: III Blood Administration: Blood Product Administration History None Estimated Blood Loss: 300 mL Drains: Urethral Catheter Temperature probe 16 Fr. (Active) Implants Type Name Action Serial No. VASCUGUARD 8 X 8 - [id number] Implanted STENT ENDOPROSTHESIS VIABAHN 9FR [id number] - [id number] Implanted [id number] Specimen: Specimens ID Source Frozen? 1 Other [...] issues. 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 He previouslyunderwent thrombin injection. He reports pain in his calves. He presents today for scheduled left lower extremity femoral to ytgsv-ogb-vcsi popliteal bypass. Planned likely use PTFE. He [...] 16. Results Review {Vanishing Link Review Results :[id number] I have reviewed the latest lab and imaging results. Assessment & Plan Critical limb ischemia of left lower extremity Proceed with scheduled surgery left lower extremity femoral to gskut-ffn-emut popliteal artery bypass graft. Extensive discussion had [...] Description 11/26/2024 2:00 PM EDT Hospital Encounter [facility] [address] [place] [address] 11/26/2024 2:30 PM EDT Hospital Encounter [facility] [address] [place] [address] 11/26/2024 3:20 PM EDT Office Visit [facility] [address] [facility] [address] [place] [address] Elisabet Schuster, PA [address] [facility] [address] [place] [address] 11/29/2024 2:30 PM EDT Office Visit [facility] [address] [place] [address] Oscar Appiah MD [address] [facility] [address] [place] [address] Pending Results Name Type Priority Associated Diagnoses [...] POCT glucose meter (10/19/2024 11:40 AM EDT) [facility] POCT Glucose 207(H) 74 - 99 mg/dL [...] Comment 10/19/2024 11:42 AM EDT HEALTHCARE LAB Labor Relations Representative ID KamranJob 10/20/19 11:42 AM EDT HEALTHCARE LAB Device ID [id number] 10/19/2024 11:42 AM EDT HEALTHCARE LAB Specimen Type POC Capillary 10/19/2024 11:42 AM EDT [facility] Blood Capillary blood specimen / Unknown 10/19/2024 11:40 AM EDT 10/19/2024 11:42 AM EDT us Terrell Gautam MD LAB POINT OF CARE TE ST DOCKED DEVICE UNSOLICITED RESULTS Final Result Performing Organization Address City/State/[facility] Co de Phone Number HEALTHCARE LAB [address] [place] [address] * (ABNORMAL) Protime-INR (10/19/2024 8:25 AM EDT) [facility] Prothrombin Time 17.5(H) 12.0 - 14.3 sec LAB COAGULATION METHOD 10/19/2024 9:[address] [facility] INR 1.4(H) 0.9 - 1.1 LAB COAGULATION METHOD 10/19/2024 9:[address] [facility] Blood Venous blood specimen / Unknown Venipuncture / Unknown 10/19/2024 8:25 AM EDT 10/19/2024 8:[address] [facility] - 10/19/2024 9:25 AM [...] BLOOD ORDERABLES Final Result Performing Organization Address [facility]/ZIP Co de Phone Number [facility] [address] [place] [address] * (ABNORMAL) Phosphorus (10/19/2024 8:25 AM EDT) Phosphorus, Plasma 2.2(L) 2.5 - 4.5 mg/dL 10/19/2024 9:[address] [facility] Blood Venous blood specimen / Unknown Venipuncture / Unknown 10/19/2024 8:25 AM EDT 10/19/2024 8:43 AM EDT us Nirmal Cueto MD LAB BLOOD ORDERABLES Final Result Performing Organization Address [facility] Co de Phone Number [facility] [address] [place] [address] * Magnesium (10/19/2024 8:25 AM EDT) Magnesium, Plasma 2.1 1.9 - 2.4 mg/dL 10/19/2024 9:12 AM EDT [facility] Blood Venous blood specimen / Unknown Venipuncture / Unknown 10/19/2024 8:25 AM EDT 10/19/2024 8:43 AM EDT Nirmal Cueto MD LAB BLOOD ORDERABLES Final Result Performing Organization Address [facility] Co de Phone Number [facility] [address] [place] [address] * (ABNORMAL) Basic metabolic panel (10/19/2024 8:25 AM EDT) Glucose, Plasma 191(H) 74 - 99 mg/dL 10/19/2024 9:[address] [facility] BUN, Plasma 18 8 - 23 mg/dL 10/19/2024 9:[address] [facility] Creatinine, Plasma 0.76 0.70 - 1.20 mg/dL 10/19/2024 9:[address] [facility] BUN/Creatinine Ratio 24 10/19/2024 9:[address] [facility] Sodium, Plasma 135(L) 136 - 145 mmol/L 10/19/2024 9:[address] [facility] Potassium, Plasma 4.1 3.6 - 4.9 mmol/L 10/19/2024 9:[address] [facility] Chloride, Plasma 104 97 - 107 mmol/L 10/19/2024 9:[address] [facility] CO2, Plasma 22 22 - 29 mmol/L 10/19/2024 9:[address] [facility] Anion Gap 9 6 - 16 mmol/L 10/19/2024 9:[address] [facility] Total Calcium, Plasma 8.4(L) 8.9 - 10.2 mg/dL 10/19/2024 9:[address] [facility] eGFRcr 99.7 mL/min/1.7 3m*2 10/19/2024 9:[address] [facility] Comment:Reported eGFRcr in m L/min/1.73m2 is based the CKD-EPI 2020 equation that does not use a race coefficient. Blood Venous blood specimen / Unknown Venipuncture / Unknown 10/19/2024 8:25 AM EDT 10/19/2024 8:43 AM EDT us Nirmal Cueto MD LAB BLOOD ORDERABLES Final Result [facility] [address] [place] [address] * (ABNORMAL) CBC W/O Differential (10/19/2024 8:25 AM EDT) WBC Count 14.10(H) 3.70 - 10.30 10*3/uL LAB HEMATOLOGY METHOD 10/19/2024 8:[address] [facility] RBC Count 2.61(L) 4.60 - 6.10 10*6/uL LAB HEMATOLOGY METHOD 10/19/2024 8:[address] [facility] HGB 8.0(L) 13.7 - 17.5 g/dL LAB HEMATOLOGY METHOD 10/19/2024 8:[address] [facility] HCT 24.3(L) 40.0 - 51.0 % LAB HEMATOLOGY METHOD 10/19/2024 8:[address] [facility] Platelet Count 318 155 - 369 10*3/uL LAB HEMATOLOGY METHOD 10/19/2024 8:[address] [facility] MCV 93 79 - 98 fL LAB HEMATOLOGY METHOD 10/19/2024 8:[address] [facility] MCH 30.7 26.0 - 32.0 pg LAB HEMATOLOGY METHOD 10/19/2024 8:[address] [facility] MCHC 32.9 30.7 - 35.5 g/dL LAB HEMATOLOGY METHOD 10/19/2024 8:[address] [facility] RDW 13.4 11.5 - 14.5 % LAB HEMATOLOGY METHOD 10/19/2024 8:[address] [facility] MPV 9.6 8.8 - 12.5 fL LAB HEMATOLOGY METHOD 10/19/2024 8:[address] [facility] nRBC 0.0 <=0.0 per 100 WBCs LAB HEMATOLOGY METHOD 10/19/2024 8:[address] [facility] Blood Venous blood specimen / Unknown Venipuncture / Unknown 10/19/2024 8:25 AM EDT 10/19/2024 8:44 AM EDT us Nirmal Cueto MD LAB BLOOD ORDERABLES Final Result [facility] [address] [place] [address] * (ABNORMAL) POCT glucose meter (10/19/2024 7:35 AM EDT) [facility] POCT Glucose 187(H) 74 - 99 [...] Comment 10/19/2024 7:37 AM EDT HEALTHCARE LAB Labor Relations Representative ID Job Andrew 10/20/19 7:37 AM EDT HEALTHCARE LAB Device ID [id number] 10/19/2024 7:37 AM EDT HEALTHCARE LAB Specimen Type POC Capillary 10/19/2024 7:37 AM EDT HEALTHCARE LAB Blood Capillary blood specimen / Unknown 10/19/2024 7:35 AM EDT 10/19/2024 7:37 AM EDT us Terrell Gautam MD LAB POINT OF CARE TE ST DOCKED DEVICE UNSOLICITED RESULTS Final Result Performing Organization Address City/State/[facility] Co de Phone Number HEALTHCARE LAB [address] [place] [address] * (ABNORMAL) POCT glucose meter (10/18/2024 7:22 [...] Comment 10/18/2024 7:24 PM EDT HEALTHCARE LAB Labor Relations Representative ID Mahesh Aldana 10/18/2024 7:24 PM EDT HEALTHCARE LAB Device ID [id number] 10/18/2024 7:24 PM EDT HEALTHCARE LAB Specimen Type POC Capillary 10/18/2024 7:24 PM EDT HEALTHCARE LAB Blood Capillary blood specimen / Unknown 10/18/2024 7:22 PM EDT 10/18/2024 7:24 PM EDT us Terrell Gautam MD LAB POINT OF CARE TE ST DOCKED DEVICE UNSOLICITED RESULTS Final Result Performing Organization Address City/[facility] Co de Phone Number [facility] [address] [place] [address] * (ABNORMAL) POCT glucose meter (10/18/2024 6:07 PM EDT) Pathologist [facility] POCT Glucose 167(H) 74 - 99 [...] Comment 10/18/2024 6:09 PM EDT HEALTHCARE LAB Labor Relations Representative ID David Parks 10/18/2024 6:09 PM EDT HEALTHCARE LAB Device ID [id number] 10/18/2024 6:09 PM EDT HEALTHCARE LAB Specimen Type POC Capillary 10/18/2024 6:09 PM EDT [facility] Blood Capillary blood specimen / Unknown 10/18/2024 6:07 PM EDT 10/18/2024 6:09 PM EDT Terrell Gautam MD LAB POINT OF CARE TE ST DOCKED DEVICE UNSOLICITED RESULTS Final Result Performing Organization Address City/[facility] Co de Phone Number [facility] [address] [place] [address] * (ABNORMAL) POCT glucose meter (10/18/2024 11:56 AM EDT) Pathologist [facility] POCT Glucose 233(H) 74 - 99 [...] 10/21/2024 7:42 AM EDT [facility] Labor Relations Representative ID Venessa Marcano 10/21/2024 7:42 AM EDT [facility] Device ID [id number] 10/21/2024 7:42 AM EDT HEALTHCARE LAB Specimen Type POC Capillary 10/21/2024 7:42 AM EDT HEALTHCARE LAB Blood Capillary blood specimen / Unknown 10/18/2024 11:56 AM EDT 10/21/2024 7:42 AM EDT us Terrell Gautam MD LAB POINT OF CARE TE ST DOCKED DEVICE UNSOLICITED RESULTS Final Result Performing Organization Address [facility] Co de Phone Number [facility] [address] [place] [address] * (ABNORMAL) POCT glucose meter (10/18/2024 9:24 AM EDT) [facility] POCT Glucose 322(H) 74 - 99 mg/dL [...] Comment 10/21/2024 7:42 AM EDT HEALTHCARE LAB Labor Relations Representative ID Emilia Alonso 7:42 AM EDT HEALTHCARE LAB Device ID [id number] 10/21/2024 7:42 AM EDT HEALTHCARE LAB Specimen Type POC Venous 10/21/2024 7:42 AM EDT HEALTHCARE LAB Blood Venous blood specimen / Unknown 10/18/2024 9:24 AM EDT 10/21/2024 7:42 AM EDT us Terrell Gautam MD LAB POINT OF CARE TE ST DOCKED DEVICE UNSOLICITED RESULTS Final Result Performing Organization Address City/[facility] Co de Phone Number [facility] [address] [place] [address] * (ABNORMAL) POCT glucose meter (10/18/2024 7:36 AM EDT) [facility] POCT Glucose 215(H) 74 - 99 [...] Comment 10/18/2024 7:38 AM EDT HEALTHCARE LAB Labor Relations Representative ID Kizzy Godfrey 025 7:38 AM EDT HEALTHCARE LAB Device ID [id number] 10/18/2024 7:38 AM EDT [facility] Specimen Type POC Capillary 10/18/2024 7:38 AM EDT [facility] Blood Capillary blood specimen / Unknown 10/18/2024 7:36 AM EDT 10/18/2024 7:38 AM EDT us Terrell Gautam MD LAB POINT OF CARE TE ST DOCKED DEVICE UNSOLICITED RESULTS Final Result HEALTHCARE LAB [address] [place] [address] * (ABNORMAL) CBC (10/18/2024 2:09 AM EDT) [facility] WBC Count 16.71(H) 3.70 - 10.30 10*3/uL LAB HEMATOLOGY METHOD 10/18/2024 2:[address] [facility] RBC Count 2.78(L) 4.60 - 6.10 10*6/uL LAB HEMATOLOGY METHOD 10/18/2024 2:[address] [facility] HGB 8.5(L) 13.7 - 17.5 g/dL LAB HEMATOLOGY METHOD 10/18/2024 2:[address] [facility] HCT 25.7(L) 40.0 - 51.0 % LAB HEMATOLOGY METHOD 10/18/2024 2:[address] [facility] Platelet Count 324 155 - 369 10*3/uL LAB HEMATOLOGY METHOD 10/18/2024 2:[address] [facility] MCV 92 79 - 98 fL LAB HEMATOLOGY METHOD 10/18/2024 2:[address] [facility] MCH 30.6 26.0 - 32.0 pg LAB HEMATOLOGY METHOD 10/18/2024 2:[address] [facility] MCHC 33.1 30.7 - 35.5 g/dL LAB HEMATOLOGY METHOD 10/18/2024 2:[address] [facility] RDW 13.3 11.5 - 14.5 % LAB HEMATOLOGY METHOD 10/18/2024 2:[address] [facility] MPV 9.4 8.8 - 12.5 fL LAB HEMATOLOGY METHOD 10/18/2024 2:[address] [facility] nRBC 0.0 <=0.0 per 100 WBCs LAB HEMATOLOGY METHOD 10/18/2024 2:[address] [facility] Blood Venous blood specimen / Unknown Venipuncture / Unknown 10/18/2024 2:09 AM EDT 10/18/2024 2:25 AM EDT Nirmal Cueto MD LAB BLOOD ORDERABLES Final Result [facility] [address] [place] [address] * (ABNORMAL) Basic metabolic panel (10/18/2024 2:09 AM EDT) Glucose, Plasma 206(H) 74 - 99 mg/dL 10/18/2024 2:[address] [facility] BUN, Plasma 24(H) 8 - 23 mg/dL 10/18/2024 2:[address] [facility] Creatinine, Plasma 1.17 0.70 - 1.20 mg/dL 10/18/2024 2:[address] [facility] BUN/Creatinine Ratio 21 10/18/2024 2:[address] [facility] Sodium, Plasma 136 136 - 145 mmol/L 10/18/2024 2:[address] [facility] Potassium, Plasma 4.8 3.6 - 4.9 mmol/L 10/18/2024 2:[address] [facility] Chloride, Plasma 104 97 - 107 mmol/L 10/18/2024 2:[address] [facility] CO2, Plasma 22 22 - 29 mmol/L 10/18/2024 2:[address] [facility] Anion Gap 10 6 - 16 mmol/L 10/18/2024 2:[address] [facility] Total Calcium, Plasma 8.5(L) 8.9 - 10.2 mg/dL 10/18/2024 2:[address] [facility] eGFRcr 69.2 mL/min/1.7 3m*2 10/18/2024 2:[address] [facility] Comment:Reported eGFRcr in m L/min/1.73m2 is based the CKD-EPI 2020 equation that does not use a race coefficient. Blood Venous blood specimen / Unknown Venipuncture / Unknown 10/18/2024 2:09 AM EDT 10/18/2024 2:25 AM EDT Nirmal Cueto MD LAB BLOOD ORDERABLES Final Result Performing Organization Address City/[facility]/ZIP Co de Phone Number [facility] [address] [place] [address] * (ABNORMAL) Magnesium (10/18/2024 2:09 AM EDT) Magnesium, Plasma 1.8(L) 1.9 - 2.4 mg/dL 10/18/2024 2:[address] [facility] Blood Venous blood specimen / Unknown Venipuncture / Unknown 10/18/2024 2:09 AM EDT 10/18/2024 2:25 AM EDT Nirmal Cueto MD LAB BLOOD ORDERABLES Final Result [facility] [address] [place] [address] * Phosphorus (10/18/2024 2:09 AM EDT) Phosphorus, Plasma 3.7 2.5 - 4.5 mg/dL 10/18/2024 2:[address] [facility] Blood Venous blood specimen / Unknown Venipuncture / Unknown 10/18/2024 2:09 AM EDT 10/18/2024 2:25 AM EDT Nirmal Cueto MD LAB BLOOD ORDERABLES Final Result Performing Organization Address [facility] Co de Phone Number [facility] [address] [place] [address] * (ABNORMAL) Protime-INR (10/18/2024 2:09 AM EDT) Prothrombin Time 14.5(H) 12.0 - 14.3 sec LAB COAGULATION METHOD 10/18/2024 2:[address] [facility] INR 1.1 0.9 - 1.1 LAB COAGULATION METHOD 10/18/2024 2:[address] [facility] Blood Venous blood specimen / Unknown Venipuncture / Unknown 10/18/2024 2:09 AM EDT 10/18/2024 2:[address] [facility] - 10/18/2024 2:53 AM [...] BLOOD ORDERABLES Final Result Performing Organization Address [facility] Co de Phone Number [facility] [address] [place] [address] * (ABNORMAL) POCT glucose meter (10/18/2024 2:08 AM EDT) POCT Glucose 202(H) 74 - 99 mg/dL 10/18/2024 2:10 AM EDT [facility] Comment:Accuracy of a glucos e [...] Comment 10/18/2024 2:10 AM EDT [facility]ALTH[facility] Labor Relations Representative ID Jourdan Grimes II 10/18/2024 2:10 AM EDT HEALTHCARE LAB Device ID [id number] 10/18/2024 2:10 AM EDT [facility] Specimen Type POC Capillary 10/18/2024 2:10 AM EDT [facility] Blood Capillary blood specimen / Unknown 10/18/2024 2:08 AM EDT 10/18/2024 2:10 AM EDT us Terrell Gautam MD LAB POINT OF CARE TE ST DOCKED DEVICE UNSOLICITED RESULTS Final Result Performing Organization Address City/State/[facility] Phone Number HEALTHCARE LAB [address] [place] [address] * (ABNORMAL) POCT glucose meter (10/17/2024 10:07 PM EDT) [facility] POCT Glucose 300(H) 74 - 99 [...] Comment 10/17/2024 10:10 PM EDT HEALTH[facility]ARE LAB Labor Relations Representative ID Jourdan Grimes II 10/17/2024 10:10 PM EDT HEALTHCARE LAB Device ID [id number] 10/17/2024 10:10 PM EDT [facility]ALTH[facility]ARE LAB Specimen Type POC Capillary 10/17/2024 10:10 PM EDT [facility] Blood Capillary blood specimen / Unknown 10/17/2024 10:07 PM EDT 10/17/2024 10:10 PM EDT us Terrell Gautam MD LAB POINT OF CARE TE ST DOCKED DEVICE UNSOLICITED RESULTS Final Result Performing Organization Address City/State/[facility] Co de Phone Number HEALTHCARE LAB [address] [place] [address] * (ABNORMAL) POCT glucose meter (10/17/2024 8:07 PM EDT) [facility] POCT Glucose 391(H) 74 - 99 [...] Comment 10/17/2024 8:10 PM EDT HEALTH[facility]ARE LAB Labor Relations Representative ID Cornelio WALTERS Jourdan 10/17/2024 8:10 PM EDT HEALTHCARE LAB Device ID [id number] 10/17/2024 8:10 PM EDT [facility] Specimen Type POC Capillary 10/17/2024 8:10 PM EDT [facility] Blood Capillary blood specimen / Unknown 10/17/2024 8:07 PM EDT 10/17/2024 8:10 PM EDT Terrell Gautam MD LAB POINT OF CARE TE ST DOCKED DEVICE UNSOLICITED RESULTS Final Result Performing Organization Address [facility] Co de Phone Number HEALTHCARE LAB [address] [place] [address] * (ABNORMAL) POCT glucose meter (10/17/2024 4:01 PM EDT) [facility] POCT Glucose 249(H) 74 - 99 [...] 10/17/2024 4:03 PM EDT [facility] Labor Relations Representative ID Chelsieamanda Keisha 10/17/2024 4:03 PM EDT [facility] Device ID [id number] 10/17/2024 4:03 PM EDT [facility] Specimen Type POC Capillary 10/17/2024 4:03 PM EDT [facility] Blood Capillary blood specimen / Unknown 10/17/2024 4:01 PM EDT 10/17/2024 4:03 PM EDT us Terrell Gautam MD LAB POINT OF CARE TE ST DOCKED DEVICE UNSOLICITED RESULTS Final Result Performing Organization Address City/[facility] Co de Phone Number [facility] [address] [place] [address] * (ABNORMAL) POCT glucose meter (10/17/2024 1:25 PM EDT) [facility] Signature POCT Glucose 225(H) 74 [...] 10/17/2024 1:27 PM EDT [facility] Labor Relations Representative ID Kizzy Godfrey 025 1:27 PM EDT [facility] Device ID [id number] 10/17/2024 1:27 PM EDT [facility] Specimen Type POC Capillary 10/17/2024 1:27 PM EDT [facility] Blood Capillary blood specimen / Unknown 10/17/2024 1:25 PM EDT 10/17/2024 1:27 PM EDT us Terrell Gautam MD LAB POINT OF CARE TE ST DOCKED DEVICE UNSOLICITED RESULTS Final Result Performing Organization Address City/[facility] Co de Phone Number [facility] [address] [place] [address] * [place] Less than 1 Hour Intraoperative [...] Seconds 10/29/2024 7:28 AM EDT [facility]ALTHCARE LAB Labor Relations Representative ID Donna Mcmillan 10/29/2024 7:28 AM EDT [facility]ALTH[facility]ARE LAB ACT Device ID [id number] 10/29/2024 7:28 AM EDT [facility] Comment 10/29/2024 7:[address] [facility] Comment: ACT performed by [...] UNSOLICITED RESULTS Final Result Performing Organization Address City/[facility]/[place] de Phone Number [facility] [address] LAB [address] [place] [address] * (ABNORMAL) Blood gas, arterial (10/17/2024 11:48 AM EDT) pH, Arterial 7.34 7.31 - 7.42 LAB HEMATOLOGY METHOD 10/17/2024 11:[address] [facility] pCO2, Arterial 41 32 - 45 mmHg LAB HEMATOLOGY METHOD 10/17/2024 11:[address] [facility] pO2, Arterial 202 >80 mmHg LAB HEMATOLOGY METHOD 10/17/2024 11:[address] [facility] SO2, Measured, Arterial 100(H) 94 - 98 % LAB HEMATOLOGY METHOD 10/17/2024 11:[address] [facility] Base Excess, Arterial -3.2(L) -2.0 - 3.0 mmol/L LAB HEMATOLOGY METHOD 10/17/2024 11:[address] [facility] Bicarbonate, Calculated, Arterial 22 22 - 26 mmol/L LAB HEMATOLOGY METHOD 10/17/2024 11:[address] [facility] Hematocrit, Whole Blood 28.6(L) 40.0 - 51.0 % LAB HEMATOLOGY METHOD 10/17/2024 11:[address] [facility] Sodium, Whole Blood 137 136 - 145 mmol/L LAB HEMATOLOGY METHOD 10/17/2024 11:[address] [facility] Potassium, Whole Blood 4.5 3.6 - 4.9 mmol/L LAB HEMATOLOGY METHOD 10/17/2024 11:[address] [facility] Chloride, Whole Blood 112(H) 97 - 107 mmol/L LAB HEMATOLOGY METHOD 10/17/2024 11:[address] [facility] Glucose, Whole Blood 201(H) 74 - 99 mg/dL LAB HEMATOLOGY METHOD 10/17/2024 11:[address] [facility] Ionized Calcium, Whole Blood 4.8 4.6 - 5.1 mg/dL LAB HEMATOLOGY METHOD 10/17/2024 11:[address] [facility] Lactate, Arterial, Whole Blood 2.3(H) 0.5 - 1.6 mmol/L LAB HEMATOLOGY METHOD 10/17/2024 11:[address] [facility] Blood Arterial blood specimen / Unknown Arterial Puncture / Unknown 10/17/2024 11:48 AM EDT 10/17/2024 11:53 AM EDT us Jenna Lopez CRNA LAB BLOOD ORDERABLES Final Re sult [facility] [address] [place] [address] * POCT ACT (10/17/2024 11:41 AM EDT) ACT+ (HIGH RANGE) 175 68 - 600 Seconds 10/29/2024 7:28 AM EDT [facility] Labor Relations Representative ID Oneyda Alicea 10/29/2024 7:28 AM EDT [facility] ACT Device ID [id number] 10/29/2024 7:28 AM EDT [facility] Comment 10/29/2024 7:28 AM EDT [facility] Comment: ACT performed by staff at [...] UNSOLICITED RESULTS Final Result Performing Organization Address [facility] Co de Phone Number HEALTHCARE LAB [address] LAB [address] [place] [address] * POCT ACT (10/17/2024 11:11 AM EDT) [facility] Signature ACT+ (HIGH RANGE) 252 68 - 600 Seconds 10/29/2024 7:28 AM EDT [facility] Labor Relations Representative ID Donna Mcmillan 10/29/2024 7:28 AM EDT [facility] ACT Device ID [id number] 10/29/2024 7:28 AM EDT [facility] Comment 10/29/2024 7:28 AM EDT [facility] Comment: ACT performed by staff at [...] UNSOLICITED RESULTS Final Result Performing Organization Address City/[facility] Co de Phone Number HEALTHCARE LAB [address] LAB [address] [place] [address] * (ABNORMAL) Blood gas, arterial (10/17/2024 10:46 AM EDT) pH, Arterial 7.35 7.31 - 7.42 LAB HEMATOLOGY METHOD 10/17/2024 10:[address] [facility] pCO2, Arterial 42 32 - 45 mmHg LAB HEMATOLOGY METHOD 10/17/2024 10:[address] [facility] pO2, Arterial 161 >80 mmHg LAB HEMATOLOGY METHOD 10/17/2024 10:[address] [facility] SO2, Measured, Arterial 100(H) 94 - 98 % LAB HEMATOLOGY METHOD 10/17/2024 10:[address] [facility] Base Excess, Arterial -2.2(L) -2.0 - 3.0 mmol/L LAB HEMATOLOGY METHOD 10/17/2024 10:[address] [facility] Bicarbonate, Calculated, Arterial 23 22 - 26 mmol/L LAB HEMATOLOGY METHOD 10/17/2024 10:[address] [facility] Hematocrit, Whole Blood 29.9(L) 40.0 - 51.0 % LAB HEMATOLOGY METHOD 10/17/2024 10:[address] [facility] Sodium, Whole Blood 138 136 - 145 mmol/L LAB HEMATOLOGY METHOD 10/17/2024 10:[address] [facility] Potassium, Whole Blood 4.0 3.6 - 4.9 mmol/L LAB HEMATOLOGY METHOD 10/17/2024 10:[address] [facility] Chloride, Whole Blood 110(H) 97 - 107 mmol/L LAB HEMATOLOGY METHOD 10/17/2024 10:[address] [facility] Glucose, Whole Blood 174(H) 74 - 99 mg/dL LAB HEMATOLOGY METHOD 10/17/2024 10:[address] [facility] Ionized Calcium, Whole Blood 5.1 4.6 - 5.1 mg/dL LAB HEMATOLOGY METHOD 10/17/2024 10:[address] [facility] Lactate, Arterial, Whole Blood 1.4 0.5 - 1.6 mmol/L LAB HEMATOLOGY METHOD 10/17/2024 10:[address] [facility] Blood Arterial blood specimen / Unknown Arterial Puncture / Unknown 10/17/2024 10:46 AM EDT 10/17/2024 10:54 AM EDT us Jenna Munira Lopez M[employer]SE [employer] LAB BLOOD ORDERABLES Final Re sult Performing Organization Address [facility] Co de Phone Number [facility] [address] [place] [address] * POCT ACT (10/17/2024 10:37 AM EDT) ACT+ (HIGH RANGE) 206 68 - 600 Seconds 10/29/2024 7:28 AM EDT HEALTHCARE LAB Labor Relations Representative ID Donna Mcmillan 10/29/2024 7:28 AM EDT [facility] ACT Device ID [id number] 10/29/2024 7:28 AM EDT [facility] Comment 10/29/2024 7:[address] [facility] Comment: ACT performed by [...] UNSOLICITED RESULTS Final Result Performing Organization Address [facility]/[place] de Phone Number [facility] [address] [place] [address] * Surgical Pathology Exam (10/17/2024 10:27 AM EDT) Case Report Surgical Pathology Case: [id number] Authorizing Provider: Terrell Gautam MD Collected: 10/17/2024 1027 Ordering Location: [facility] A OPERATING ROOM Received: 10/17/2024 1325 Pathologist: Haydee Osborne MD Specimen: Other (specify site), left common femoral plaque 10/21/2024 10:[address] [facility] Final Diagnosis A. LEFT COMMON FEMORAL PLAQUE, EXCISION: - CALCIFIED PLAQUE 10/21/2024 10:[address] [facility] at 1016 EDT Clinical Information Critical limb ischemia of left lower extremity [I70.222] 10/21/2024 10:[address] [facility] Gross Description A. LEFT COMMON FEMORAL PLAQUE Received in formalin labeled l eft common femoral plaque , is one aggregate of red-gabriel hard portions of plaque measuring 3.7 x 2.5 x 0.9 cm. The specimen is serially sectioned and payroll representative sections are submitted in cassette A1. Cold Time: <1m Kenia Aceves 10/21/2024 10:[address] [facility] Note: A resident was involved in the service. I attest I examined the relevant preparations for the specimens and confirmed the diagnosis or interpretation. 10/21/2024 10:[address] [facility] Tissue Topography unknown / Unknown 10/17/2024 10:27 AM EDT 10/17/2024 1:25 PM EDT Comment:Pre-op diagnosis: Critical limb ischemia of left lower extremity [I70.222] us Terrell Gautam MD LAB PATHOLOGY ORDERABLES Gwen grimaldo Result [facility] [address] [place] [address] * POCT ACT (10/17/2024 10:03 AM EDT) ACT+ (HIGH RANGE) 244 68 - 600 Seconds 10/29/2024 7:28 AM EDT [facility] Labor Relations Representative ID Donna Mcmillan 10/29/2024 7:28 AM EDT HEALTHCARE LAB ACT Device ID [id number] 10/29/2024 7:28 AM EDT HEALTHCARE LAB Comment 10/29/2024 7:[address] [facility] Comment: ACT performed by [...] Final Result [facility] [address] LAB [address] [place] [address] * (ABNORMAL) Blood gas, arterial (10/17/2024 9:45 AM EDT) pH, Arterial 7.37 7.31 - 7.42 LAB HEMATOLOGY METHOD 10/17/2024 9:[address] [facility] pCO2, Arterial 43 32 - 45 mmHg LAB HEMATOLOGY METHOD 10/17/2024 9:[address] [facility] pO2, Arterial 177 >80 mmHg LAB HEMATOLOGY METHOD 10/17/2024 9:[address] [facility] SO2, Measured, Arterial 100(H) 94 - 98 % LAB HEMATOLOGY METHOD 10/17/2024 9:[address] [facility] Base Excess, Arterial -0.5 -2.0 - 3.0 mmol/L LAB HEMATOLOGY METHOD 10/17/2024 9:[address] [facility] Bicarbonate, Calculated, Arterial 25 22 - 26 mmol/L LAB HEMATOLOGY METHOD 10/17/2024 9:[address] [facility] Hematocrit, Whole Blood 30.0(L) 40.0 - 51.0 % LAB HEMATOLOGY METHOD 10/17/2024 9:[address] [facility] Sodium, Whole Blood 137 136 - 145 mmol/L LAB HEMATOLOGY METHOD 10/17/2024 9:[address] [facility] Potassium, Whole Blood 4.3 3.6 - 4.9 mmol/L LAB HEMATOLOGY METHOD 10/17/2024 9:[address] [facility] Chloride, Whole Blood 108(H) 97 - 107 mmol/L LAB HEMATOLOGY METHOD 10/17/2024 9:[address] [facility] Glucose, Whole Blood 191(H) 74 - 99 mg/dL LAB HEMATOLOGY METHOD 10/17/2024 9:[address] [facility] Ionized Calcium, Whole Blood 5.0 4.6 - 5.1 mg/dL LAB HEMATOLOGY METHOD 10/17/2024 9:[address] [facility] Lactate, Arterial, Whole Blood 1.3 0.5 - 1.6 mmol/L LAB HEMATOLOGY METHOD 10/17/2024 9:[address] [facility] Blood Arterial blood specimen / Unknown Arterial Line / Unknown 10/17/2024 9:45 AM EDT 10/17/2024 9:52 AM EDT us Jenna Lopez CRNA LAB BLOOD ORDERABLES Final Re sult [facility] [address] [place] [address] * (ABNORMAL) Blood gas, arterial (10/17/2024 8:47 AM EDT) pH, Arterial 7.37 7.31 - 7.42 LAB HEMATOLOGY METHOD 10/17/2024 8:[address] [facility] pCO2, Arterial 43 32 - 45 mmHg LAB HEMATOLOGY METHOD 10/17/2024 8:[address] [facility] pO2, Arterial 205 >80 mmHg LAB HEMATOLOGY METHOD 10/17/2024 8:[address] [facility] SO2, Measured, Arterial 100(H) 94 - 98 % LAB HEMATOLOGY METHOD 10/17/2024 8:[address] [facility] Base Excess, Arterial -0.3 -2.0 - 3.0 mmol/L LAB HEMATOLOGY METHOD 10/17/2024 8:[address] [facility] Bicarbonate, Calculated, Arterial 25 22 - 26 mmol/L LAB HEMATOLOGY METHOD 10/17/2024 8:[address] [facility] Hematocrit, Whole Blood 31.3(L) 40.0 - 51.0 % LAB HEMATOLOGY METHOD 10/17/2024 8:[address] [facility] Sodium, Whole Blood 138 136 - 145 mmol/L LAB HEMATOLOGY METHOD 10/17/2024 8:[address] [facility] Potassium, Whole Blood 4.0 3.6 - 4.9 mmol/L LAB HEMATOLOGY METHOD 10/17/2024 8:[address] [facility] Chloride, Whole Blood 108(H) 97 - 107 mmol/L LAB HEMATOLOGY METHOD 10/17/2024 8:[address] [facility] Glucose, Whole Blood 162(H) 74 - 99 mg/dL LAB HEMATOLOGY METHOD 10/17/2024 8:[address] [facility] Ionized Calcium, Whole Blood 5.2(H) 4.6 - 5.1 mg/dL LAB HEMATOLOGY METHOD 10/17/2024 8:[address] [facility] Lactate, Arterial, Whole Blood 1.7(H) 0.5 - 1.6 mmol/L LAB HEMATOLOGY METHOD 10/17/2024 8:[address] [facility] Blood Arterial blood specimen / Unknown Arterial Puncture / Unknown 10/17/2024 8:47 AM EDT 10/17/2024 8:58 AM EDT us Jenna Lopez CRNA LAB BLOOD ORDERABLES Final Re sult [facility] [address] [place] [address] * POCT ACT (10/17/2024 8:46 AM EDT) ACT+ (HIGH RANGE) 101 68 - 600 Seconds 10/29/2024 7:28 AM EDT [facility] Labor Relations Representative ID Donna Mcmillan 10/29/2024 7:28 AM EDT [facility] ACT Device ID [id number] 10/29/2024 7:28 AM EDT [facility] Comment 10/29/2024 7:[address] [facility] Comment: ACT performed by [...] RESULTS Final Result [facility] [address] LAB [address] [place] [address] * Type and Screen (10/17/2024 7:19 AM [...] ORDERAB LES Final Result Performing Organization Address [facility] Co de Phone Number BLOOD BANK [address] [place] [address] * (ABNORMAL) POCT glucose meter (10/17/2024 6:44 AM EDT) [facility] POCT Glucose 178(H) 74 - 99 [...] 10/17/2024 6:49 AM EDT [facility] Labor Relations Representative ID Hunter Burroughs 10/18/19 6:49 AM EDT [facility] Device ID [id number] 10/17/2024 6:49 AM EDT [facility] Specimen Type POC Capillary 10/17/2024 6:49 AM EDT [facility] Blood Capillary blood specimen / Unknown 10/17/2024 6:44 AM EDT 10/17/2024 6:49 AM EDT us Terrell Gautam MD LAB POINT OF CARE TE ST DOCKED DEVICE UNSOLICITED RESULTS Final Result [facility] [address] [place] [id number] documented in this encounter Visit Diagnoses Diagnosis [...] 2012 (Given - Provider: Jourdan Grimes II, CHRITSIAN) 0801 (Given - Provider: Emilia Alonso, CHRISTIAN)2001 [...] pain, severe pain 1856 (Given - Provider: Kesiha Waller, CHRISTIAN)2302 (Given - Provider: Jourdan Grimes [...] 10 mL, Intravenous, As needed, Starting on Aydira 10/17/24 at 0653, Until 10/18/24 at 1510, [...] documented as of this encounter Care Teams Higher Education Administrator Relationship Specialty Start Date End Date Asad Victor MD [address] [place] [id number] PCP - General 10/07/22 documented as of this encounter
--- OUTSIDE RECORDS SUMMARY | 2024-11-05 21:45 | XMS_ITS | Encounter Summary ---
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 Help From Other: Eating Meals: None [facility] 6 Click - Daily Activities [...] needed areas of treatment space. Level of Gregg Interventions Grooming Modified independent Standing sinkside Pt [...] blood glucose monitored * Care Plan - Birgitte Castellon RN - 11/08/2024 1:50 PM EDT [...] Note Bev Borja 64 y.o. male CSN: [id number] Admission: 11/05/2024 9:45 PM Primary Problem: Wound infection SW went to bedside to discuss placement options for modified OPAT. Per patient, ID stated he would be able to dc home with a PICC and home antibiotics. SW relayed message to team. Wound vac order sent to [place] at for potential Monday discharge if patient does go home. SW will continue to follow and assist as needed. Mariia Macedo AIRCRAFT ELECTRICAL SYSTEMS SPECIALIST * Progress Notes - Bianca Knight PharmD [...] to follow, Submitted by: Bianca Knight, PharmD, [facility] 11/08/2024 11:15 AM * Progress Notes - Melecio Echevarria DO - 11/08/2024 7:18 AM EDT Images from the original note were not included. [facility] Department of Surgery Division of Vascular Surgery Surgery Progress Note 11/08/24 Bev Borja Subjective Subjective: HPI 64yoM PMHx COPD, T2DM, HLD, HTN, RLS, CAD s/p PCI (on Xarelto) s/p pacemaker c/b left SANDIP pseudoaneurysm s/p thrombin injection 09/21/24, CLI s/p left femoral endarterectomy with EIA/WORKERS COMPENSATION CLAIMS ASSISTANT stenting 10/17/24, who presented to [facility] 11/05/2024 with wound infection. 11/06/24: L groin/thigh [...] MD Home meds Hold blood thinners Diabetes ([facility]) Overview Addendum 10/19/2021 10:41 AM by [...] completed 10/19 Pseudoaneurysm of left femoral artery ([facility]) COPD (chronic obstructive pulmonary disease) ([facility]) Overview Signed 10/18/2021 7:30 PM by Gallo Gallardo MD Not on home inhalers A-fib ([facility]) Overview Addendum 10/19/2021 10:39 AM by Giovanna Junior APRN Hold anticoagulation Metoprolol restarted BPH (benign prostatic hyperplasia) Overview Addendum 10/19/2021 10:41 AM by Giovanna Junior APRN Flomax restarted Subarachnoid hemorrhage ([facility]) Overview Addendum 10/20/2021 8:23 AM by Giovanna Junior APRN Left frontal, right occipital NSGY consulted - Repeat CTH showing slight worsening of tSAH - no need for further imaging, will continue to follow clinically 10/20: spoke with NSGY via phone and stated to hold ASA and Xarelto for 2 weeks Closed compression fracture of L3 lumbar vertebra, initial encounter ([facility]) Overview Signed 10/18/2021 7:35 PM by [...] sites Overview Signed 10/19/2021 10:49 AM by Givoanna Junior APRN Wash with soap and water [...] 09/21/24, CLI s/p left femoral endarterectomy with EIA/WORKERS COMPENSATION CLAIMS ASSISTANT stenting 10/17/24, who presented to [facility] 11/05/2024 with wound infection. POD # 1 [...] 1960 Age: 64 y.o. 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 Lead integrity test [...] recommendations. Supporting reports can be found in [employer] file. Micro: Susceptibility data from last 90 days. Collected Specimen Info Organism 11/06/24 Tissue from Other (specify site) Gram Negative Jesus 11/06/24 Swab from Other (specify site) Enterobacter cloacae complex Results Procedure Component Value Units Date/Time Fungal Culture, Routine [[id number]] Collected: 11/06/241127 Order Status: Completed Specimen: Swab from Other (specify site) Updated: 11/08/24 0919 Culture No Fungal Growth <1 Week Fungal Culture, Routine [[id number]] Collected: 11/06/241128 Order Status: Completed Specimen: Swab from Other (specify site) Updated: 11/08/24 0919 Culture No Fungal Growth <1 Week Fungal Culture, Tissue and ISIDRO [[id number]] Collected: 11/06/24 113 Order Status: Completed Specimen: Tissue from Other (specify site) Updated: 11/08/24 0912 Culture Reading Mycological 4 Weeks No Fungal Growth <1 Week ISIDRO No fungal elements seen Blood Culture (Aerobic/Anaerobet Set) [[id number]] Collected: 11/06/24106 Order Status: Completed Specimen: Blood from AC, Left Updated: 11/08/24 0302 Culture No growth at day 2 Blood Culture (Aerobic/Anaerobet Set) [[id number]] Collected: 11/06/24106 Order Status: Completed Specimen: Blood from Hand, Right Updated: 11/08/24 0302 Culture No growth at day 2 Tissue Culture and Gram Stain [[id number]] (Abnormal) Collected: 11/06/241133 Order Status: Completed Specimen: [...] in pairs Routine Culture and Gram Stain [[id number]] (Abnormal) Collected: 11/06/241128 Order Status: Completed Specimen: Swab from Other (specify site) Updated: 11/07/24 1426 Culture Moderate Growth Enterobacter cloacae complex Comment: This isolate has been identified using the FDA Approved [employer] [place] System The organism value for this result has been updated. These results have been appended to the previously preliminary verified report. Gram Stain Result No polymorphonuclear leukocytes seen No organisms seen AFB Culture, Non Respiratory Source and Acid Fast Stain [[id number]] Collected: 11/06/24 1134 Order Status: Completed Specimen: Tissue from Other (specify site) Updated: 11/07/24 1404 Acid Fast Stain No acid fast bacilli seen Routine Culture and Gram Stain [[id number]] Collected: 11/06/241127 Order Status: Completed Specimen: Swab from Other (specify site) Updated: 11/07/24 0855 Culture No growth at day 1 Gram Stain Result No organisms seen No polymorphonuclear leukocytes seen Anaerobic Culture [[id number]] Collected: 11/06/241127 Order Status: Sent Specimen: Swab from Other (specify site) Updated: 11/06/24 1220 Abscess Culture and Gram Stain [[id number]] Collected: 11/06/241127 Order Status: Canceled Specimen: Swab from Other (specify site) Updated: 11/06/24 1220 Anaerobic Culture [[id number]] Collected: 11/06/241128 Order Status: Sent Specimen: Swab from Other (specify site) Updated: 11/06/24 1219 Abscess Culture and Gram Stain [[id number]] Collected: 11/06/241128 Order Status: Canceled Specimen: Swab from Other (specify site) Updated: 11/06/24 121 Anaerobic Culture [[id number]] Collected: 11/06/241133 Order Status: Sent Specimen: Tissue [...] OSH. On 11/06, pt went to the [facility] vascular surgery for left groin exploration [...] the time spent on the encounter was [id number] providing direct patient care, counseling for the patient/caregiver, and care coordination. [1] Current Facility-Administered Medications Medication Dose Route Frequency Provider Last Rate Last Admin acetaminophen (Tylenol) tablet 1,000 mg 1,000 mg Oral q6h [facility] Anthony Reyes MD 1,000 mg at 11/08/24 0520 aspirin chewable tablet 81 mg 81 mg Oral Daily Reid Daniels MD 81 mg at 11/08/24 0837 cefepime (Maxipime) 2 g in sodium chloride 0.9% 100 mL IVPB (vial adapter required) 2 g [id number] Reid Daniels MD 36.7 mL/hr at 11/08/24 [...] Plan: OPAT at a medical/nursing facility (e.g, LTAC,[facility], Swing Bed, Nursing facility) OPAT [...] IV Access: pending Patient Specific Outpatient Circumstances: [address] [place] [id number] Contact information Bev Borja [phone] (home) Extended Emergency Contact Information Primary Emergency Contact: Patti Hill Relation: Sister Toy Assembly Supervisor needed? No Outpatient services (including home infusion, [...] via secure chat or staff messaging in [employer]. OPAT Modified program for IV antimicrobial therapy [...] Note Bev Borja 64 y.o. male CSN: [id number] Admission: 11/05/2024 9:45 PM Primary Problem: Wound infection Case Assistant reviewed chart and spoke with patient to complete this Initial Case Management Assessment. PCP: Asad Victor MD (Inactive) Dr. Palomo in [facility] Emergency Contact: Extended Emergency Contact Information Primary Emergency Contact: Patti Hill Relation: Sister Toy Assembly Supervisor needed? No Insurance: Primary Visit Coverage Payer Plan Sponsor Code Group Number Group Name [facility] MEDICARE UHC MEDICARE REPLACEMENT [id number] Primary Visit Coverage Subscriber Subscriber ID Subscriber Name Subscriber SSN Subscriber Address [id number] BEV BORJA [id number] [place] [address] Secondary Visit Coverage Payer Plan Sponsor Code Group Number Group Name AETNA [employer] [facility] MEDICAID AETNA [facility] Secondary Visit Coverage Subscriber Subscriber ID Subscriber Name Subscriber SSN Subscriber Address [id number] BEV BORJA [id number] [place] [address] Patient information: Primary Caregiver: Self Support System: Immediate family Daily Living Activities: Functional Status: Independent Living Arrangements: Alone Type of Residence: Private residence, Single Level [address] [place] [address] Current DME: Equipment Currently Used at Home: walker, rollator Income Information: Income Source: Disabled Income/Expense Information: Income meets expenses Current Resources Utilized: Food [place] Housing Circumstances-Z Codes: Housing Circumstances (select all [...] Dialysis Services: None Living Will/Advance Directive/Power of Income Tax Manager /Guardian: Have you reviewed your Advance Directive and is it valid for this stay?: No Advance Directive: Not applicable Information Provided on Healthcare Directives: No Pre-existing DNR/DNI Order: No Patient Requests Assistance: No Additional Comments: Patient is not medically ready for discharge. Patient uses [facility] for transportation and will need assistance with discharge transport. SW will continue to follow. Mariia Macedo AIRCRAFT ELECTRICAL SYSTEMS SPECIALIST * Progress Notes - Melecio Echevarria DO - 11/07/2024 9:24 AM EDT Images from the original note were not included. [facility] Department of Surgery Division of Vascular Surgery Surgery Progress Note 11/07/24 Bev Borja Subjective Subjective: HPI 64yoM PMHx COPD, T2DM, HLD, HTN, RLS, CAD s/p PCI (on Xarelto) s/p pacemaker c/b left SANDIP pseudoaneurysm s/p thrombin injection 09/21/24, CLI s/p left femoral endarterectomy with EIA/WORKERS COMPENSATION CLAIMS ASSISTANT stenting 10/17/24, who presented to [facility] 11/05/2024 with wound infection. 11/06/24: L groin/thigh [...] completed 10/19 Pseudoaneurysm of left femoral artery ([facility]) COPD (chronic obstructive pulmonary disease) ([facility]) Overview Signed 10/18/2021 7:30 PM by Gallo Gallardo MD Not on home inhalers A-fib ([facility]) Overview Addendum 10/19/2021 10:39 AM by Giovanna Junior APRN Hold anticoagulation Metoprolol restarted BPH (benign prostatic hyperplasia) Overview Addendum 10/19/2021 10:41 AM by Giovanna Junior APRN Flomax restarted Subarachnoid hemorrhage ([facility]) Overview Addendum 10/20/2021 8:23 AM by Giovanna Junior APRN Left frontal, right occipital NSGY consulted - Repeat CTH showing slight worsening of tSAH - no need for further imaging, will continue to follow clinically 10/20: spoke with NSGY via phone and stated to hold ASA and Xarelto for 2 weeks Closed compression fracture of L3 lumbar vertebra, initial encounter ([facility]) Overview Signed 10/18/2021 7:35 PM by [...] Overview Signed 10/18/2021 7:36 PM by Gallo Gallrado MD Incidental finding, no intervention Left carotid [...] 09/21/24, CLI s/p left femoral endarterectomy with EIA/WORKERS COMPENSATION CLAIMS ASSISTANT stenting 10/17/24, who presented to [facility] 11/05/2024 with wound infection. POD # 1 [...] Edited by: Melecio Echevarria DO at 11/07/2024 0933 Dispo: Continue Current Level of Care Melecio [...] the original note were not included. [facility] Department of Surgery Division of [...] of breath, nausea and vomiting. Pain Control: [facility]. Currently well controlled. Objective: Vitals: [...] Diet: Regular Anticoagulation/DVT ppx: Held Pain management: [facility] Level of care: Continue Current Level of Care I have answered and addressed all issues and concerns from the patient and nursing staff. I have notified senior resident/attending risk control officer with any issues or concerns. Melecio [...] Agree with above assessment and evaluation from resident/POLISHING PAD MOUNTER. * Consults - Oscar Appiah MD - [...] the findings. Cardiac Device Check - PRE-OR [facility] EP-Device Clinic: Pre-operative CIED Report Assessment and Sara-Procedural Reommendations: Name: Bev Borja Date: 10/17/2024 : 1960 Age: 64 y.o. 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 Lead integrity test [...] Procedure Component Value Units Date/Time Anaerobic Culture [[id number]] Collected: 11/06/241127 Order Status: Sent Specimen: Swab from Other (specify site) Updated: 11/06/241219 Fungal Culture, Routine [[id number]] Collected: 11/06/241127 Order Status: Sent Specimen: Swab from Other (specify site) Updated: 11/06/24 122 Routine Culture and Gram Stain [[id number]] Collected: 11/06/241127 Order Status: Sent Specimen: Swab from Other (specify site) Updated: 11/06/241219 Abscess Culture and Gram Stain [[id number]] Collected: 11/06/241127 Order Status: Canceled Specimen: Swab from Other (specify site) Updated: 11/06/241219 Anaerobic Culture [[id number]] Collected: 11/06/241128 Order Status: Sent Specimen: Swab from Other (specify site) Updated: 11/06/24 121 Fungal Culture, Routine [[id number]] Collected: 11/06/241128 Order Status: Sent Specimen: Swab from Other (specify site) Updated: 11/06/241218 Routine Culture and Gram Stain [[id number]] Collected: 11/06/241128 Order Status: Sent Specimen: Swab from Other (specify site) Updated: 11/06/241218 Abscess Culture and Gram Stain [[id number]] Collected: 11/06/241128 Order Status: Canceled Specimen: Swab from Other (specify site) Updated: 11/06/241218 Anaerobic Culture [[id number]] Collected: 11/06/241133 Order Status: Sent Specimen: Tissue from Other (specify site) Updated: 11/06/241217 Tissue Culture and Gram Stain [[id number]] Collected: 11/06/241133 Order Status: Sent Specimen: Tissue from Other (specify site) Updated: 11/06/241217 AFB Culture, Non Respiratory Source and Acid Fast Stain [[id number]] Collected: 11/06/241133 Order Status: Sent Specimen: Tissue from Other (specify site) Updated: 11/06/241217 Fungal Culture, Tissue and ISIDRO [[id number]] Collected: 11/06/24 1134 Order Status: Sent Specimen: Tissue from Other (specify site) Updated: 11/06/24 1218 Blood Culture (Aerobic/Anaerobet Set) [[id number]] Collected: 11/06/24106 Order Status: Completed Specimen: Blood from AC, Left Updated: 11/06/24402 Culture Culture in lab Blood Culture (Aerobic/Anaerobet Set) [[id number]] Collected: 11/06/24106 Order Status: Completed Specimen: Blood [...] OSH. On 11/06, pt went to the [facility] vascular surgery for left groin exploration [...] the time spent on the encounter was [id number] providing direct patient care, counseling for the patient/caregiver, and care coordination. [1] Past Medical History: Diagnosis Date Arthritis Old myocardial infarction History of myocardial infarction [2] Past Surgical History: Procedure Laterality Date ANKLE SURGERY Right CARDIAC PACEMAKER PLACEMENT CAROTID ENDARTERECTOMY N/A 2017 Endarterectomy Carotid Artery from [facility] CORONARY ANGIOPLASTY Left Coronary Angiography With Concomitant Left Heart Catheterization from [facility] CORONARY ARTERY BYPASS GRAFT N/A 2018 3V ELBOW SURGERY Right ENDARTERECTOMY Left 10/17/2024 common/SFA/Profunda thromboendarterectomy, EIA/WORKERS COMPENSATION CLAIMS ASSISTANT stent HERNIA REPAIR KNEE ARTHROSCOPY Left VASCULAR SURGERY Left 09/21/2024 WORKERS COMPENSATION CLAIMS ASSISTANT pseudoaneurym injection [3] Family History Problem [...] tablet 1,000 mg 1,000 mg Oral q6h [facility] Anthony Reyes MD 1,000 mg at [...] Note Bev Borja 64 y.o. male CSN: [id number] Admission: 11/05/2024 9:45 PM Primary Problem: Wound infection Patient in OR today. SW will continue to follow. Mariia Macedo AIRCRAFT ELECTRICAL SYSTEMS SPECIALIST * Op Note - Jerry Holcomb MD - 11/06/2024 11:23 AM EDT Operative Note Date: 11/06/24 Location: [place] OR Name: Bev Borja, : 1960, Diagnoses: Pre-op Diagnosis Surgical wound infection Post-op Diagnosis Surgical wound infection Procedure(s): Excisional debridement left groin (skin, subcutaneous tissue. Final measurements 10 x 7 x 6.5 cm) Excisional debridement left thigh (skin, subcutaneous tissue. Final measurements 8 x 2 x 3 cm) Attending Surgeon(s): * Nathaly Nowak - Primary Bar Turner(s): * Luna Beckett MD - Resident - [...] the original note were not included. [facility] Department of Surgery Division of [...] RLS who presented to the [facility] on 11/05/2024 with problems with his wounds. [...] T2DM, HLD, HTN, RLS who presented to [facility] with wound infection. He has had drainage [...] restarted once verified. Plan: - Admit to [facility] - NPO, mIVF - Vanc/Zosyn, Blood [...] ENDARTERECTOMY N/A 2017 Endarterectomy Carotid Artery from [facility] CORONARY ANGIOPLASTY Left Coronary Angiography With Concomitant Left Heart Catheterization from [facility] CORONARY ARTERY BYPASS GRAFT N/A 2018 3V ELBOW SURGERY Right ENDARTERECTOMY Left 10/17/2024 common/SFA/Profunda thromboendarterectomy, EIA/WORKERS COMPENSATION CLAIMS ASSISTANT stent HERNIA REPAIR KNEE ARTHROSCOPY Left VASCULAR SURGERY Left 09/21/2024 WORKERS COMPENSATION CLAIMS ASSISTANT pseudoaneurym injection [4] Family History Problem [...] Correction - Standard Dose 0-5 UnitsSubcutaneous q6h [facility] Anthony Reyes MD 2 Units at [...] baseline. Psychiatric: Mood and Affect: Mood normal. [place] Coma Scale Score: 15 ED Course & [...] 11/06/2435 Mobility Orders Until discontinued Acknowledged ANTHONY REYSE 11/06/2435 Notify Provider Until discontinued Acknowledged ANTHONY REYES 11/06/2435 Vital Signs Per unit protocol Acknowledged ANTHONY REYES 11/06/2435 Intake and Output Per unit protocol Acknowledged ANTHONY REYES 11/06/2435 Insert peripheral IV Once Placed in And Linked Group Acknowledged ANTHONY REYES 11/06/2435 Saline lock IV Once Placed in And Linked Group Acknowledged ANTHONY REYES 11/06/2435 Admit to inpatient Once Acknowledged ANTHONY REYES 11/05/24 3940 Consult to Vascular Surgery - Surg Red Once Specialty: Vascular Surgery Provider: (Not yet assigned) Completed [facility]LEX[facility] ED Course as of 11/06/24612Nov 05, 2024 2311 On initial evaluation, patient is hemodynamically stable. Patient has history of traumatic left lower extremity WORKERS COMPENSATION CLAIMS ASSISTANT pseudoaneurysm s/p repair on 10/17 with [...] None Disposition Admit Admitting/Attending Physician: NATHALY NOWAK [[id number]] Provider Care Team: [facility] 2 [168] Are they the primary team?: Yes [1] - [1] Past Medical History: Diagnosis Date Arthritis Old myocardial infarction History of myocardial infarction [2] Past Surgical History: Procedure Laterality Date ANKLE SURGERY Right CARDIAC PACEMAKER PLACEMENT CAROTID ENDARTERECTOMY N/A 2017 Endarterectomy Carotid Artery from [facility] CORONARY ANGIOPLASTY Left Coronary Angiography With Concomitant Left Heart Catheterization from [facility] CORONARY ARTERY BYPASS GRAFT N/A 2018 3V ELBOW SURGERY Right ENDARTERECTOMY Left 10/17/2024 common/SFA/Profunda thromboendarterectomy, EIA/WORKERS COMPENSATION CLAIMS ASSISTANT stent HERNIA REPAIR KNEE ARTHROSCOPY Left VASCULAR SURGERY Left 09/21/2024 WORKERS COMPENSATION CLAIMS ASSISTANT pseudoaneurym injection [3] Family History Problem [...] Description 11/26/2024 2:00 PM EDT Hospital Encounter [facility] Vascular Lab [address] [place] [address] 11/26/2024 2:30 PM EDT Hospital Encounter [facility] Vascular Lab [address] [place] [address] 11/26/2024 3:20 PM EDT Office Visit [facility] Comprehensive Vascular Clinic [address] [place] [address] Elisabet Schuster, GLENDA [address] [place] [address] 11/29/2024 2:30 PM EDT Office Visit [facility] [address] [place] [address] Oscar Appiah MD [address] [facility] [place] [address] Pending Results Name Type Priority [...] until 05/18/2026 Discharge Ambulatory referral to NON [facility] Outpatient Referral Routine Pseudoaneurysm of left [...] UNSOLICITED RESULTS Routine 11/13/2024 5:16 PM EDT [place] NEGATIVE PRESSURE WOUND THERAPY DME </= 50 [...] UNSOLICITED RESULTS Routine 11/11/2024 5:20 PM EDT [place] NEGATIVE PRESSURE WOUND THERAPY DME >50 SQ [...] POCT glucose meter (11/14/2024 11:56 AM EDT) [facility] POCT Glucose 225(H) 74 - 99 [...] Comment 11/14/2024 11:57 AM EDT HEALTHCARE LAB Campaign Assistant ID Estefani Sheth 11/14/2024 11:57 AM EDT HEALTHCARE LAB Device ID [id number] 11/14/2024 11:57 AM EDT HEALTHCARE LAB Specimen Type POC Capillary 11/14/2024 11:57 AM EDT HEALTHCARE LAB Blood Capillary blood specimen / Unknown 11/14/2024 11:56 AM EDT 11/14/2024 11:57 AM EDT Nathaly Nowak MD LAB POINT OF CARE TE ST DOCKED DEVICE UNSOLICITED RESULTS Final Result Performing Organization Address City/State/[facility] Co de Phone Number HEALTHCARE LAB [address] [place] [address] * (ABNORMAL) POCT glucose meter (11/14/2024 8:05 AM EDT) [facility] POCT Glucose 150(H) 74 - 99 [...] 11/14/2024 8:06 AM EDT [facility] Campaign Assistant ID Estefani Sheth 11/14/2024 8:06 AM EDT HEALTHCARE LAB Device ID [id number] 11/14/2024 8:06 AM EDT HEALTHCARE LAB Specimen Type POC Capillary 11/14/2024 8:06 AM EDT HEALTHCARE LAB Blood Capillary blood specimen / Unknown 11/14/2024 8:05 AM EDT 11/14/2024 8:06 AM EDT Nathaly Nowak MD LAB POINT OF CARE TE ST DOCKED DEVICE UNSOLICITED RESULTS Final Result Performing Organization Address City/[facility] de Phone Number [facility] [address] [place] [address] * (ABNORMAL) POCT glucose meter (11/14/2024 3:53 [...] for testing. Comment 11/14/2024 3:55 AM EDT [facility] Campaign Assistant ID Nelda Gerber 11/15/19 3:55 AM EDT HEALTHCARE LAB Device ID [id number] 11/14/2024 3:55 AM EDT [facility] Specimen Type POC Capillary 11/14/2024 3:55 AM EDT [facility] Blood Capillary blood specimen / Unknown 11/14/2024 3:53 AM EDT 11/14/2024 3:55 AM EDT Nathaly Nowak MD LAB POINT OF CARE TE ST DOCKED DEVICE UNSOLICITED RESULTS Final Result Performing Organization Address City/[facility] Co de Phone Number [facility] [address] [place] [address] * (ABNORMAL) POCT glucose meter (11/13/2024 8:55 [...] Comment 11/13/2024 9:01 PM EDT HEALTHCARE LAB Campaign Assistant ID Nelda Gerber 11/14/19 9:01 PM EDT HEALTHCARE LAB Device ID [id number] 11/13/2024 9:01 PM EDT HEALTHCARE LAB Specimen Type POC Capillary 11/13/2024 9:01 PM EDT [facility]ALTHCARE LAB Blood Capillary blood specimen / Unknown 11/13/2024 8:55 PM EDT 11/13/2024 9:01 PM EDT Nathaly Nowak MD LAB POINT OF CARE TE ST DOCKED DEVICE UNSOLICITED RESULTS Final Result Performing Organization Address City/State/[facility] Co de Phone Number HEALTHCARE LAB [address] [place] [address] * (ABNORMAL) POCT glucose meter (11/13/2024 5:16 PM EDT) [facility] POCT Glucose 149(H) 74 - 99 [...] Comment 11/13/2024 5:17 PM EDT HEALTHCARE LAB Campaign Assistant ID Estefani Sheth 11/13/2024 5:17 PM EDT HEALTHCARE LAB Device ID [id number] 11/13/2024 5:17 PM EDT HEALTHCARE LAB Specimen Type POC Capillary 11/13/2024 5:17 PM EDT HEALTHCARE LAB Blood Capillary blood specimen / Unknown 11/13/2024 5:16 PM EDT 11/13/2024 5:17 PM EDT Nathaly Nowak MD LAB POINT OF CARE TE ST DOCKED DEVICE UNSOLICITED RESULTS Final Result [facility] [address] [place] [id number] * [place] NEGATIVE PRESSURE WOUND THERAPY DME </= 50 [...] Comment 11/13/2024 12:00 PM EDT HEALTHCARE LAB Campaign Assistant ID Estefani Sheth 11/13/2024 12:00 PM EDT HEALTHCARE LAB Device ID [id number] 11/13/2024 12:00 PM EDT HEALTHCARE LAB Specimen Type POC Capillary 11/13/2024 12:00 PM EDT HEALTHCARE LAB Blood Capillary blood specimen / Unknown 11/13/2024 11:58 AM EDT 11/13/2024 12:00 PM EDT Nathaly Nowak MD LAB POINT OF CARE TE ST DOCKED DEVICE UNSOLICITED RESULTS Final Result Performing Organization Address [facility] Co de Phone Number [facility]CARE [facility] [address] [place] [address] * (ABNORMAL) POCT glucose meter (11/13/2024 8:23 AM EDT) POCT Glucose 195(H) 74 - 99 mg/dL 11/13/2024 8:24 AM EDT [facility] Comment:Accuracy of a glucos e result [...] for testing. Comment 11/13/2024 8:24 AM EDT [facility] Campaign Assistant ID Estefani Sheth 11/13/2024 8:24 AM EDT [facility] Device ID [id number] 11/13/2024 8:24 AM EDT [facility] Specimen Type POC Capillary 11/13/2024 8:24 AM EDT [facility] Blood Capillary blood specimen / Unknown 11/13/2024 8:23 AM EDT 11/13/2024 8:24 AM EDT Result [facility] Nathaly Nowak MD LAB POINT OF CARE TE ST DOCKED DEVICE UNSOLICITED RESULTS Final Result Performing Organization Address City/[facility] Co de Phone Number [facility] [address] [place] [address] * (ABNORMAL) Phosphorus, Plasma (11/13/2024 6:37 AM EDT) Phosphorus, Plasma 1.7(L) 2.5 - 4.5 mg/dL 11/13/2024 7:16 AM EDT [facility] Blood Venous blood specimen / Unknown Venipuncture / Unknown 11/13/2024 6:37 AM EDT 11/13/2024 6:44 AM EDT Result [facility] Nathaly Nowak MD LAB BLOOD ORDERABLES Final Resu lt [facility] [address] [place] [address] * Magnesium, Plasma (11/13/2024 6:37 AM EDT) Pathologist [facility] Magnesium, Plasma 2.0 1.9 - 2.4 mg/dL 11/13/2024 7:16 AM EDT [facility] Blood Venous blood specimen / Unknown Venipuncture / Unknown 11/13/2024 6:37 AM EDT 11/13/2024 6:44 AM EDT us Nathaly Nowak MD LAB BLOOD ORDERABLES Final Resu lt Performing Organization Address City/[facility]/ZIP Co de Phone Number [facility] [address] [place] [address] * (ABNORMAL) CBC W/O Differential (11/13/2024 6:37 AM EDT) Pathologist [facility] WBC Count 11.72(H) 3.70 - [...] Resu lt [facility] [address] [place] [address] * (ABNORMAL) Basic Metabolic Panel, Plasma (11/13/2024 [...] ORDERABLES Final Resu lt Performing Organization Address City/[facility]/ZIP Co de Phone Number [facility] [address] [place] [address] * (ABNORMAL) POCT glucose meter (11/12/2024 8:27 PM EDT) [facility] POCT Glucose 175(H) 74 - 99 [...] Comment 11/12/2024 8:29 PM EDT HEALTHCARE LAB Campaign Assistant ID Nelda Gerber 11/13/19 8:29 PM EDT HEALTHCARE LAB Device ID [id number] 11/12/2024 8:29 PM EDT HEALTHCARE LAB Specimen Type POC Capillary 11/12/2024 8:29 PM EDT [facility]ALTHCARE LAB Blood Capillary blood specimen / Unknown 11/12/2024 8:27 PM EDT 11/12/2024 8:29 PM EDT us Nathaly Nowak MD LAB POINT OF CARE TE ST DOCKED DEVICE UNSOLICITED RESULTS Final Result [facility] [address] [place] [address] * (ABNORMAL) POCT glucose meter (11/12/2024 5:08 PM EDT) [facility] POCT Glucose 157(H) 74 - 99 [...] 11/12/2024 5:10 PM EDT [facility] Campaign Assistant ID Wade Feliciano 5:10 PM EDT [facility] Device ID [id number] 11/12/2024 5:10 PM EDT [facility] Specimen Type POC Capillary 11/12/2024 5:10 PM EDT [facility]ALTH[facility]ARE LAB Blood Capillary blood specimen / Unknown 11/12/2024 5:08 PM EDT 11/12/2024 5:10 PM EDT Nathaly Nowak MD LAB POINT OF CARE TE ST DOCKED DEVICE UNSOLICITED RESULTS Final Result [facility] [address] [place] [address] * (ABNORMAL) POCT glucose meter (11/12/2024 12:36 PM EDT) [facility] POCT Glucose 224(H) 74 - 99 [...] 11/12/2024 12:38 PM EDT [facility] Campaign Assistant ID Wade Feliciano 12:38 PM EDT [facility] Device ID [id number] 11/12/2024 12:38 PM EDT [facility] Specimen Type POC Capillary 11/12/2024 12:38 PM EDT [facility] Blood Capillary blood specimen / Unknown 11/12/2024 12:36 PM EDT 11/12/2024 12:38 PM EDT Nathaly Nowak MD LAB POINT OF CARE TE ST DOCKED DEVICE UNSOLICITED RESULTS Final Result Performing Organization Address City/[facility]/ZIP Co de Phone Number [facility] [address] [place] [address] * Clostridiodes (Clostridium) difficile PCR (11/12/2024 9:50 AM EDT) C difficile PCR toxin B gene DNA Result Not Detected Not Detected 11/12/2024 11:54 AM EDT [facility] Stool Rectum structure / Unknown Non-blood [...] ATIYA FRITZ Final Result Performing Organization Address City/[facility]/ZIP Co de Phone Number [facility] [address] [place] [address] * Comprehensive GI Panel by PCR (11/12/2024 [...] clinically indicated. Nathaly Nowak MD LAB MICROBIOLOGY [facility] Final Result [facility] [address] [place] [address] * C-reactive protein (11/12/2024 9:48 AM EDT) [...] ORDERABLES Final Resu lt Performing Organization Address City/[facility]/ZIP Co de Phone Number [facility] [address] [place] [address] * (ABNORMAL) POCT glucose meter (11/12/2024 8:20 AM EDT) [facility] POCT Glucose 138(H) 74 - 99 [...] Comment 11/12/2024 8:21 AM EDT HEALTHCARE LAB Campaign Assistant ID Wade Feliciano 8:21 AM EDT [facility] Device ID [id number] 11/12/2024 8:21 AM EDT [facility] Specimen Type POC Capillary 11/12/2024 8:21 AM EDT [facility] Blood Capillary blood specimen / Unknown 11/12/2024 8:20 AM EDT 11/12/2024 8:21 AM EDT Nathaly Nowak MD LAB POINT OF CARE TE ST DOCKED DEVICE UNSOLICITED RESULTS Final Result Performing Organization Address [facility] Co de Phone Number [facility]ARE [facility] [address] [place] [address] * (ABNORMAL) POCT glucose meter (11/11/2024 8:18 PM EDT) [facility] POCT Glucose 248(H) 74 - 99 [...] Comment 11/11/2024 8:20 PM EDT HEALTHCARE LAB Campaign Assistant ID Nelda Gerber 11/12/19 8:20 PM EDT HEALTHCARE LAB Device ID [id number] 11/11/2024 8:20 PM EDT HEALTHCARE LAB Specimen Type POC Capillary 11/11/2024 8:20 PM EDT [facility] LAB Blood Capillary blood specimen / Unknown 11/11/2024 8:18 PM EDT 11/11/2024 8:20 PM EDT Nathaly Nowak MD LAB POINT OF CARE TE ST DOCKED DEVICE UNSOLICITED RESULTS Final Result Performing Organization Address City/[facility]/ZIP Co de Phone Number [facility] [address] [place] [address] * (ABNORMAL) POCT glucose meter (11/11/2024 5:59 [...] 11/11/2024 6:01 PM EDT [facility] Campaign Assistant ID Wade Feliciano 6:01 PM EDT HEALTHCARE LAB Device ID [id number] 11/11/2024 6:01 PM EDT HEALTHCARE LAB Specimen Type POC Capillary 11/11/2024 6:01 PM EDT [facility]ALTH[facility]ARE LAB Blood Capillary blood specimen / Unknown 11/11/2024 5:59 PM EDT 11/11/2024 6:01 PM EDT Nathaly Nowak MD LAB POINT OF CARE TE ST DOCKED DEVICE UNSOLICITED RESULTS Final Result Performing Organization Address City/[facility]/ZIP Co de Phone Number [facility] [address] [place] [address] * POCT glucose meter (11/11/2024 5:20 PM [...] Comment 11/11/2024 5:22 PM EDT HEALTHCARE LAB Campaign Assistant ID Wade Feliciano 5:22 PM EDT HEALTHCARE LAB Device ID [id number] 11/11/2024 5:22 PM EDT HEALTH[facility]ARE LAB Specimen Type POC Capillary 11/11/2024 5:22 PM EDT [facility] LAB Blood Capillary blood specimen / Unknown 11/11/2024 5:20 PM EDT 11/11/2024 5:22 PM EDT Nathaly Nowak MD LAB POINT OF CARE TE ST DOCKED DEVICE UNSOLICITED RESULTS Final Result Performing Organization Address City/State/[facility] Co de Phone Number [facility]ALTH[facility]ARE LAB [address] [place] [address] * [place] NEGATIVE PRESSURE WOUND THERAPY DME >50 SQ [...] glucose meter (11/11/2024 12:08 PM EDT) Pathologist [facility] POCT Glucose 226(H) 74 - [...] Comment 11/11/2024 12:10 PM EDT HEALTHCARE LAB Campaign Assistant ID Wade Feliciano 12:10 PM EDT [facility] Device ID [id number] 11/11/2024 12:10 PM EDT HEALTHCARE LAB Specimen Type POC Capillary 11/11/2024 12:10 PM EDT HEALTHCARE LAB Blood Capillary blood specimen / Unknown 11/11/2024 12:08 PM EDT 11/11/2024 12:10 PM EDT us Nathaly Nowak MD LAB POINT OF CARE TE ST DOCKED DEVICE UNSOLICITED RESULTS Final Result Performing Organization Address City/State/[facility] Co de Phone Number [facility] [address] [place] [address] * (ABNORMAL) POCT glucose meter (11/11/2024 9:08 AM EDT) Pathologist [facility] POCT Glucose 162(H) 74 - [...] 11/11/2024 9:09 AM EDT [facility] Campaign Assistant ID Wade Feliciano 9:09 AM EDT [facility] Device ID [id number] 11/11/2024 9:09 AM EDT HEALTHCARE LAB Specimen Type POC Capillary 11/11/2024 9:09 AM EDT [facility] Blood Capillary blood specimen / Unknown 11/11/2024 9:08 AM EDT 11/11/2024 9:09 AM EDT Nathaly Nowak MD LAB POINT OF CARE TE ST DOCKED DEVICE UNSOLICITED RESULTS Final Result Performing Organization Address City/[facility]/ZIP Co de Phone Number [facility] [address] [place] [address] * POCT glucose meter (11/11/2024 8:27 AM EDT) POCT Glucose 87 74 - 99 mg/dL 11/11/2024 8:28 AM EDT [facility] Comment:Accuracy of a glucos e result [...] for testing. Comment 11/11/2024 8:28 AM EDT [facility] Campaign Assistant ID Wade Feliciano 8:28 AM EDT [facility] Device ID [id number] 11/11/2024 8:28 AM EDT [facility] Specimen Type POC Capillary 11/11/2024 8:28 AM EDT [facility] Blood Capillary blood specimen / Unknown 11/11/2024 8:27 AM EDT 11/11/2024 8:28 AM EDT Nathaly Nowak MD LAB POINT OF CARE TE ST DOCKED DEVICE UNSOLICITED RESULTS Final Result Performing Organization Address City/[facility]/ZIP Co de Phone Number [facility] [address] [place] [address] * (ABNORMAL) Basic Metabolic Panel, Plasma (11/11/2024 [...] lt [facility] [address] [place] [address] * (ABNORMAL) CBC W/O Differential (11/11/2024 12:56 [...] Resu lt [facility] [address] [place] [address] * (ABNORMAL) POCT glucose meter (11/10/2024 8:25 PM EDT) Pathologist [facility] POCT Glucose 144(H) 74 - 99 mg/dL 11/10/2024 8:28 PM EDT [facility] Comment:Accuracy of a glucos [...] Comment 11/10/2024 8:28 PM EDT HEALTHCARE LAB Campaign Assistant ID Nelda Gerber 11/11/19 8:28 PM EDT [facility] Device ID [id number] 11/10/2024 8:28 PM EDT [facility] Specimen Type POC Capillary 11/10/2024 8:28 PM EDT [facility]ALTH[facility]ARE LAB Blood Capillary blood specimen / Unknown 11/10/2024 8:25 PM EDT 11/10/2024 8:28 PM EDT Nathaly Nowak MD LAB POINT OF CARE TE ST DOCKED DEVICE UNSOLICITED RESULTS Final Result Performing Organization Address City/[facility] Co de Phone Number [facility]ARE LAB [address] [place] [address] * (ABNORMAL) POCT glucose meter (11/10/2024 4:45 PM EDT) [facility] POCT Glucose 155(H) 74 - 99 [...] Comment 11/10/2024 4:47 PM EDT HEALTHCARE LAB Campaign Assistant ID Esperanza Parks 11/10/2024 4:47 PM EDT HEALTHCARE LAB Device ID [id number] 11/10/2024 4:47 PM EDT HEALTHCARE LAB Specimen Type POC Capillary 11/10/2024 4:47 PM EDT HEALTH[facility]ARE LAB Blood Capillary blood specimen / Unknown 11/10/2024 4:45 PM EDT 11/10/2024 4:47 PM EDT us Nathaly Nowak MD LAB POINT OF CARE TE ST DOCKED DEVICE UNSOLICITED RESULTS Final Result [facility] [address] [place] [address] * (ABNORMAL) POCT glucose meter (11/10/2024 12:13 PM EDT) Pathologist [facility] POCT Glucose 131(H) 74 - 99 [...] Comment 11/10/2024 12:14 PM EDT HEALTHCARE LAB Campaign Assistant ID Esperanza Parks 11/10/2024 12:14 PM EDT HEALTHCARE LAB Device ID [id number] 11/10/2024 12:14 PM EDT HEALTHCARE LAB Specimen Type POC Capillary 11/10/2024 12:14 PM EDT [facility] Blood Capillary blood specimen / Unknown 11/10/2024 12:13 PM EDT 11/10/2024 12:14 PM EDT Nathaly Nowak MD LAB POINT OF CARE TE ST DOCKED DEVICE UNSOLICITED RESULTS Final Result Performing Organization Address City/[facility]/ZIP Co de Phone Number [facility] [address] [place] [address] * Vancomycin, Peak, Plasma Please draw ~2 hours after 0800 dose of vancomycin finishes infusing. Consider obtaining level via peripheral stick. If peripheral stick is not feasible, please ensure that line is flushed well prior to drawing level. Than... (11/10/2024 10:56 AM EDT) Pathologist [facility] Vancomycin, Peak, Plasma 23.8 20.0 - 40.0 [...] ORDERABLES Final Res ult Performing Organization Address [facility] Co de Phone Number [facility] [address] [place] [address] * (ABNORMAL) POCT glucose meter (11/10/2024 8:03 [...] Comment 11/10/2024 8:04 AM EDT HEALTHCARE LAB Campaign Assistant ID Esperanza Parks 11/10/2024 8:04 AM EDT HEALTHCARE LAB Device ID [id number] 11/10/2024 8:04 AM EDT HEALTHCARE LAB Specimen Type POC Capillary 11/10/2024 8:04 AM EDT HEALTHCARE LAB Blood Capillary blood specimen / Unknown 11/10/2024 8:03 AM EDT 11/10/2024 8:04 AM EDT us Nathaly Nowak MD LAB POINT OF CARE TE ST DOCKED DEVICE UNSOLICITED RESULTS Final Result Performing Organization Address [facility] Co de Phone Number [facility]ALTH[facility]ARE LAB [address] [place] [address] * Vancomycin, Trough, Plasma Please draw ~30 [...] 7:27 AM EDT 11/10/2024 7:51 AM EDT [facility] - 11/10/2024 8:24 AM EDT Therapeutic Trough level: 10-20ug/mL Supra-therapeutic Trough level: >20 ug/mL us Abigail Seay MD LAB BLOOD ORDERABLES Final Res ult [facility] [address] [place] [address] * (ABNORMAL) CBC and Differential (11/10/2024 12:31 [...] lt [facility] [address] [place] [address] * (ABNORMAL) Comprehensive Metabolic Panel, Plasma (11/10/2024 [...] Resu lt [facility] [address] [place] [address] * (ABNORMAL) POCT glucose meter (11/09/2024 8:04 [...] Comment 11/09/2024 8:06 PM EDT HEALTHCARE LAB Campaign Assistant ID Maximiliano Hansen II 11/09/2024 8:06 PM EDT HEALTHCARE LAB Device ID [id number] 11/09/2024 8:06 PM EDT HEALTHCARE LAB Specimen Type POC Capillary 11/09/2024 8:06 PM EDT HEALTHCARE LAB Blood Capillary blood specimen / Unknown 11/09/2024 8:04 PM EDT 11/09/2024 8:06 PM EDT Nathaly Nowak MD LAB POINT OF CARE TE ST DOCKED DEVICE UNSOLICITED RESULTS Final Result Performing Organization Address [facility] de Phone Number HEALTHCARE LAB [address] [place] [address] * (ABNORMAL) POCT glucose meter (11/09/2024 4:36 PM EDT) [facility] POCT Glucose 166(H) 74 - 99 [...] Comment 11/09/2024 4:38 PM EDT HEALTHCARE LAB Campaign Assistant ID Kristian Sosa 11/09/2024 4:38 PM EDT HEALTHCARE LAB Device ID [id number] 11/09/2024 4:38 PM EDT HEALTHCARE LAB Specimen Type POC Capillary 11/09/2024 4:38 PM EDT HEALTHCARE LAB Blood Capillary blood specimen / Unknown 11/09/2024 4:36 PM EDT 11/09/2024 4:38 PM EDT Nathaly Nowak MD LAB POINT OF CARE TE ST DOCKED DEVICE UNSOLICITED RESULTS Final Result Performing Organization Address City/[facility] Co de Phone Number [facility] [address] [place] [address] * PICC SINGLE LUMEN ([employer] LINK) (11/09/2024 1:11 PM EDT) Narrative Estefani Barraza RN - 11/09/2024 1:11 PM EDT Estefani Barraza RN 11/09/2024 1:12 PM Insert PICC line Date/Time: 11/09/2024 1:11 PM Performed by: Estefani Barraza RN Authorized by: Nathaly Nowak MD [place] Protocol: Verbal consent obtained?: Yes Written consent [...] selection rationale: Left pacemaker Catheter Lot #: [id number] Catheter treating engineer helper: Ancanco Catheter placed: Single lumen Catheter size: 4 Fr Catheter trimmed length: 42 Catheter threaded length: 42 Vein placed in: SVC Catheter cm indwellin Catheter cm outside: 0 Placement confirmed by: [employer] 3CG technology Pre-procedure: Landmarks identified Ultrasound guidance: [...] - 99 mg/dL 11/09/2024 11:51 AM EDT [facility] Comment:Accuracy of a glucos e result [...] Comment 11/09/2024 11:51 AM EDT HEALTHCARE LAB Campaign Assistant Kristian Greco 11/09/2024 11:51 AM EDT HEALTHCARE LAB Device ID [id number] 11/09/2024 11:51 AM EDT HEALTHCARE LAB Specimen Type POC Capillary 11/09/2024 11:51 AM EDT HEALTHCARE LAB Blood Capillary blood specimen / Unknown 11/09/2024 11:50 AM EDT 11/09/2024 11:51 AM EDT Nathaly Nowak MD LAB POINT OF CARE TE ST DOCKED DEVICE UNSOLICITED RESULTS Final Result Performing Organization Address City/[facility]/ZIP Co de Phone Number [facility]ALTH[facility]ARE [facility] [address] [place] [address] * (ABNORMAL) POCT glucose meter (11/09/2024 8:14 [...] Comment 11/09/2024 8:15 AM EDT HEALTHCARE LAB Campaign Assistant Kristian Greco 11/09/2024 8:15 AM EDT HEALTHCARE LAB Device ID [id number] 11/09/2024 8:15 AM EDT HEALTHCARE LAB Specimen Type POC Capillary 11/09/2024 8:15 AM EDT HEALTH[facility]ARE LAB Blood Capillary blood specimen / Unknown 11/09/2024 8:14 AM EDT 11/09/2024 8:15 AM EDT Nathaly Nowak MD LAB POINT OF CARE TE ST DOCKED DEVICE UNSOLICITED RESULTS Final Result Performing Organization Address City/[facility]/ZIP Co de Phone Number [facility]ARE [facility] [address] [place] [address] * (ABNORMAL) CBC and Differential (11/09/2024 4:15 [...] Resu lt [facility] [address] [place] [address] * (ABNORMAL) Comprehensive Metabolic Panel, Plasma (11/09/2024 [...] ORDERABLES Final Resu lt Performing Organization Address City/[facility]/ZIP Co de Phone Number [facility] [address] [place] [address] * (ABNORMAL) POCT glucose meter (11/09/2024 3:30 [...] Comment 11/09/2024 3:31 AM EDT HEALTHCARE LAB Campaign Assistant ID Maximiliano Hansen II 11/09/2024 3:31 AM EDT HEALTHCARE LAB Device ID [id number] 11/09/2024 3:31 AM EDT [facility] Specimen Type POC Capillary 11/09/2024 3:31 AM EDT [facility] Blood Capillary blood specimen / Unknown 11/09/2024 3:30 AM EDT 11/09/2024 3:31 AM EDT us Nathaly Nowak MD LAB POINT OF CARE TE ST DOCKED DEVICE UNSOLICITED RESULTS Final Result [facility] [address] [place] [address] * (ABNORMAL) POCT glucose meter (11/08/2024 7:21 [...] Comment 11/08/2024 7:22 PM EDT HEALTHCARE LAB Campaign Assistant ID Maximiliano Hansen II 11/08/2024 7:22 PM EDT HEALTHCARE LAB Device ID [id number] 11/08/2024 7:22 PM EDT HEALTHCARE LAB Specimen Type POC Capillary 11/08/2024 7:22 PM EDT [facility]ALTH[facility]ARE LAB Blood Capillary blood specimen / Unknown 11/08/2024 7:21 PM EDT 11/08/2024 7:22 PM EDT us Nathaly Nowak MD LAB POINT OF CARE TE ST DOCKED DEVICE UNSOLICITED RESULTS Final Result Performing Organization Address City/State/[facility] Co de Phone Number HEALTHCARE LAB [address] [place] [address] * (ABNORMAL) POCT glucose meter (11/08/2024 5:12 [...] Comment 11/08/2024 5:14 PM EDT HEALTHCARE LAB Campaign Assistant ID Estefani Sheth 11/08/2024 5:14 PM EDT HEALTHCARE LAB Device ID [id number] 11/08/2024 5:14 PM EDT HEALTHCARE LAB Specimen Type POC Capillary 11/08/2024 5:14 PM EDT HEALTH[facility]ARE LAB Blood Capillary blood specimen / Unknown 11/08/2024 5:12 PM EDT 11/08/2024 5:14 PM EDT us Nathaly Nowak MD LAB POINT OF CARE TE ST DOCKED DEVICE UNSOLICITED RESULTS Final Result Performing Organization Address City/[facility]/ZIP Co de Phone Number [facility] [address] [place] [address] * (ABNORMAL) POCT glucose meter (11/08/2024 12:03 PM EDT) Pathologist [facility] POCT Glucose 191(H) 74 - 99 [...] for testing. Comment 11/08/2024 12:05 PM EDT [facility] Campaign Assistant ID Estefani Sheth 11/08/2024 12:05 PM EDT [facility] Device ID [id number] 11/08/2024 12:05 PM EDT [facility] Specimen Type POC Capillary 11/08/2024 12:05 PM EDT [facility] Blood Capillary blood specimen / Unknown 11/08/2024 12:03 PM EDT 11/08/2024 12:05 PM EDT Nathaly Nowak MD LAB POINT OF CARE TE ST DOCKED DEVICE UNSOLICITED RESULTS Final Result Performing Organization Address City/[facility]/ZIP Co de Phone Number [facility]ALTH[facility]ARE [facility] [address] [place] [address] * Vancomycin, Peak, Plasma Please draw ~2 hours after 11/08 0600 dose of vancomycin finishes infusing.Consider obtaining level via peripheral stick. If peripheral stick is not feasible, please ensure that line is flushed well prior to drawing level.... (11/08/2024 9:24 AM EDT) Pathologist [facility] Vancomycin, Peak, Plasma 29.1 20.0 [...] ORDERABLES Final Resu lt Performing Organization Address City/[facility]/ZIP Co de Phone Number [facility] [address] [place] [address] * (ABNORMAL) POCT glucose meter (11/08/2024 8:00 AM EDT) Pathologist [facility] POCT Glucose 150(H) 74 - [...] Comment 11/08/2024 8:01 AM EDT HEALTHCARE LAB Campaign Assistant ID Estefani Sheth 11/08/2024 8:01 AM EDT HEALTHCARE LAB Device ID [id number] 11/08/2024 8:01 AM EDT [facility] Specimen Type POC Capillary 11/08/2024 8:01 AM EDT [facility] Blood Capillary blood specimen / Unknown 11/08/2024 8:00 AM EDT 11/08/2024 8:01 AM EDT us Nathaly Nowak MD LAB POINT OF CARE TE ST DOCKED DEVICE UNSOLICITED RESULTS Final Result Performing Organization Address City/[facility]/ZIP Co de Phone Number [facility] [address] [place] [address] * (ABNORMAL) CBC and Differential (11/08/2024 4:39 [...] Resu lt [facility] [address] [place] [address] * (ABNORMAL) Comprehensive Metabolic Panel, Plasma (11/08/2024 [...] ORDERABLES Final Resu lt Performing Organization Address [facility] de Phone Number [facility] [address] [place] [phone] * Vancomycin, Trough, Plasma Please draw ~30 minutes prior to dose due at 0600 on 11/08. Please do NOThold dose awaiting level to return. Consider obtaining level via peripheral stick. If peripheral stick is not feasible, please ensure that line is... (11/08/2024 4:39 AM EDT) [facility] Vancomycin, Trough, Plasma 18.7 10.0 - [...] BLOOD ORDERABLES Final Resu Performing Organization Address [facility] Phone Number [facility] [address] [place] [phone] * (ABNORMAL) POCT glucose meter (11/07/2024 7:26 PM EDT) [facility] POCT Glucose 172(H) 74 - 99 mg/dL 11/07/2024 7:28 PM EDT [facility] Comment:Accuracy of a glucos e result [...] 11/07/2024 7:28 PM EDT [facility] Campaign Assistant ID Hansen Maximiliano WALTERS 11/07/2024 7:28 PM EDT [facility] Device ID [id number] 11/07/2024 7:28 PM EDT [facility] LAB Specimen Type POC Capillary 11/07/2024 7:28 PM EDT [facility] Blood Capillary blood specimen / Unknown 11/07/2024 7:26 PM EDT 11/07/2024 7:28 PM EDT Nathaly Nowak MD LAB POINT OF CARE TE ST DOCKED DEVICE UNSOLICITED RESULTS Final Result Performing Organization Address City/[facility]/ZIP Co de Phone Number [facility]ALTHCARE LAB [address] [place] [address] * (ABNORMAL) POCT glucose meter (11/07/2024 5:51 [...] Comment 11/07/2024 5:52 PM EDT [facility] Campaign Assistant ID Brigitte Castellon 11/07/2024 5:52 PM EDT [facility]ARE LAB Device ID [id number] 11/07/2024 5:52 PM EDT [facility]ARE LAB Specimen Type POC Capillary 11/07/2024 5:52 PM EDT [facility] Blood Capillary blood specimen / Unknown 11/07/2024 5:51 PM EDT 11/07/2024 5:52 PM EDT Nathaly Nowak MD LAB POINT OF CARE TE ST DOCKED DEVICE UNSOLICITED RESULTS Final Result Performing Organization Address City/[facility]/ZIP Co de Phone Number [facility] [address] [place] [address] * (ABNORMAL) POCT glucose meter (11/07/2024 4:47 [...] 11/07/2024 4:48 PM EDT [facility] Campaign Assistant ID Estefani Sheth 11/07/2024 4:48 PM EDT [facility] Device ID [id number] 11/07/2024 4:48 PM EDT [facility]ARE LAB Specimen Type POC Capillary 11/07/2024 4:48 PM EDT [facility] Blood Capillary blood specimen / Unknown 11/07/2024 4:47 PM EDT 11/07/2024 4:48 PM EDT Nathaly Nowak MD LAB POINT OF CARE TE ST DOCKED DEVICE UNSOLICITED RESULTS Final Result Performing Organization Address City/State/[facility] Co de Phone Number [facility]ARE [facility] [address] [place] [address] * (ABNORMAL) POCT glucose meter (11/07/2024 12:22 PM EDT) [facility] POCT Glucose 172(H) 74 - 99 [...] 11/07/2024 12:24 PM EDT [facility] Campaign Assistant ID Estefani Sheth 11/07/2024 12:24 PM EDT [facility] Device ID [id number] 11/07/2024 12:24 PM EDT [facility] Specimen Type POC Capillary 11/07/2024 12:24 PM EDT [facility] Blood Capillary blood specimen / Unknown 11/07/2024 12:22 PM EDT 11/07/2024 12:24 PM EDT us Nathaly Nowak MD LAB POINT OF CARE TE ST DOCKED DEVICE UNSOLICITED RESULTS Final Result [facility] [address] [place] [address] * (ABNORMAL) CBC and Differential (11/07/2024 11:37 [...] Resu lt [facility] [address] [place] [address] * (ABNORMAL) Comprehensive Metabolic Panel, Plasma (11/07/2024 11:37 AM EDT) Glucose, Plasma 173(H) 74 - 99 mg/dL 11/07/2024 1:31 PM EDT [facility] BUN, Plasma 13 8 - 23 mg/dL 11/07/2024 1:31 PM EDT [facility] Creatinine, Plasma 0.92 0.70 - 1.20 mg/dL 11/07/2024 1:31 PM EDT [facility] BUN/Creatinine Ratio 11/07/2024 1:31 PM EDT [facility] [...] ORDERABLES Final Resu lt Performing Organization Address City/[facility]/ZIP Co de Phone Number [facility] [address] [place] [address] * Type and Screen (11/07/2024 11:37 AM EDT) Pathologist [facility] ABO/Rh A Negative 11/06/2024 8:56 AM EDT BLOOD BANK Antibody Screen Negative 11/06/2024 8:56 AM EDT BLOOD BANK Specimen Expiration 11/10/2024 23:59 11/06/2024 8:56 AM EDT BLOOD BANK Blood Venous blood specimen / Unknown Venipuncture / Unknown 11/07/2024 11:37 AM EDT 11/07/2024 11:50 AM EDT [facility] BLOOD BANK TEST ORDERABLES F inal Result Performing Organization Address [facility]/[facility] de Phone Number BLOOD BANK [address] [place] [address], * (ABNORMAL) POCT glucose meter (11/07/2024 10:34 AM EDT) Pathologist [facility] POCT Glucose 199(H) 74 - 99 mg/dL 11/07/2024 10:36 AM EDT [facility] Comment:Accuracy of a glucos e result [...] Comment 11/07/2024 10:36 AM EDT [facility]ARE [facility] Campaign Assistant ID Joy Iraheta 11/07/2024 10:36 AM EDT [facility]ARE LAB Device ID [id number] 11/07/2024 10:36 AM EDT [facility]ARE LAB Specimen Type POC Capillary 11/07/2024 10:36 AM EDT [facility] Blood Capillary blood specimen / Unknown 11/07/2024 10:34 AM EDT 11/07/2024 10:36 AM EDT Nathaly Nowak MD LAB POINT OF CARE TE ST DOCKED DEVICE UNSOLICITED RESULTS Final Result Performing Organization Address City/[facility]/[facility] Co de Phone Number [facility]ARE LAB [address] [place] [address] * (ABNORMAL) POCT glucose meter (11/07/2024 9:34 AM EDT) [facility] POCT Glucose 208(H) 74 - 99 [...] Comment 11/07/2024 9:36 AM EDT [facility]ALTH[facility]ARE [facility] Campaign Assistant ID Brigitte Castellon 11/07/2024 9:36 AM EDT [facility]ARE LAB Device ID [id number] 11/07/2024 9:36 AM EDT [facility]ARE LAB Specimen Type POC Capillary 11/07/2024 9:36 AM EDT [facility] Blood Capillary blood specimen / Unknown 11/07/2024 9:34 AM EDT 11/07/2024 9:36 AM EDT Nathaly Nowak MD LAB POINT OF CARE TE ST DOCKED DEVICE UNSOLICITED RESULTS Final Result [facility] [address] [place] [address] * (ABNORMAL) POCT glucose meter (11/07/2024 8:20 AM EDT) [facility] POCT Glucose 137(H) 74 - 99 [...] 11/07/2024 8:22 AM EDT [facility] Campaign Assistant ID Estefani Sheth Chris 11/07/2024 8:22 AM EDT [facility] Device ID [id number] 11/07/2024 8:22 AM EDT [facility] Specimen Type POC Capillary 11/07/2024 8:22 AM EDT [facility] LAB Blood Capillary blood specimen / Unknown 11/07/2024 8:20 AM EDT 11/07/2024 8:22 AM EDT Nathaly Nowak MD LAB POINT OF CARE TE ST DOCKED DEVICE UNSOLICITED RESULTS Final Result [facility] [address] [place] [address] * (ABNORMAL) POCT glucose meter (11/07/2024 7:21 AM EDT) [facility] POCT Glucose 151(H) 74 - 99 [...] 11/07/2024 7:22 AM EDT [facility] Campaign Assistant ID Brigitte Castellon 11/07/2024 7:22 AM EDT [facility] Device ID [id number] 11/07/2024 7:22 AM EDT HEALTHCARE LAB Specimen Type POC Capillary 11/07/2024 7:22 AM EDT [facility]ARE LAB Blood Capillary blood specimen / Unknown 11/07/2024 7:21 AM EDT 11/07/2024 7:22 AM EDT Nathaly Nowak MD LAB POINT OF CARE TE ST DOCKED DEVICE UNSOLICITED RESULTS Final Result Performing Organization Address City/[facility]/[facility] Co de Phone Number HEALTHCARE LAB [address] [place] [address] * (ABNORMAL) POCT glucose meter (11/07/2024 6:25 [...] Comment 11/07/2024 6:27 AM EDT [facility]ALTHCARE LAB Campaign Assistant ID Nelda Gerber 11/08/19 6:27 AM EDT HEALTHCARE LAB Device ID [id number] 11/07/2024 6:27 AM EDT [facility]ARE LAB Specimen Type POC Capillary 11/07/2024 6:27 AM EDT [facility] LAB Blood Capillary blood specimen / Unknown 11/07/2024 6:25 AM EDT 11/07/2024 6:27 AM EDT us Nathaly Nowak MD LAB POINT OF CARE TE ST DOCKED DEVICE UNSOLICITED RESULTS Final Result Performing Organization Address City/[facility]/[facility] Co de Phone Number [facility]ALTH[facility]ARE LAB [address] [place] [address] * (ABNORMAL) POCT glucose meter (11/07/2024 5:03 [...] Comment 11/07/2024 5:08 AM EDT [facility]ALTH[facility]ARE LAB Campaign Assistant ID Nelda Gerber 11/08/19 5:08 AM EDT [facility]ARE LAB Device ID [id number] 11/07/2024 5:08 AM EDT [facility]ARE LAB Specimen Type POC Capillary 11/07/2024 5:08 AM EDT [facility] Blood Capillary blood specimen / Unknown 11/07/2024 5:03 AM EDT 11/07/2024 5:08 AM EDT Nathaly Nowak MD LAB POINT OF CARE TE ST DOCKED DEVICE UNSOLICITED RESULTS Final Result [facility] [address] [place] [address] * (ABNORMAL) POCT glucose meter (11/07/2024 4:16 AM EDT) [facility] POCT Glucose 142(H) 74 - 99 [...] 11/07/2024 4:18 AM EDT [facility] Campaign Assistant ID Nelda Gerber 11/08/19 4:18 AM EDT HEALTHCARE LAB Device ID [id number] 11/07/2024 4:18 AM EDT [facility]ALTH[facility]ARE LAB Specimen Type POC Capillary 11/07/2024 4:18 AM EDT [facility] LAB Blood Capillary blood specimen / Unknown 11/07/2024 4:16 AM EDT 11/07/2024 4:18 AM EDT Natahly Nowak MD LAB POINT OF CARE TE ST DOCKED DEVICE UNSOLICITED RESULTS Final Result Performing Organization Address [facility]/[facility] de Phone Number [facility] [address] [place] [address] * (ABNORMAL) POCT glucose meter (11/07/2024 3:21 AM EDT) Pathologist [facility] POCT Glucose 141(H) 74 - [...] for testing. Comment 11/07/2024 3:23 AM EDT [facility] Campaign Assistant ID Nelda Gerber 11/08/19 3:23 AM EDT [facility] Device ID [id number] 11/07/2024 3:23 AM EDT [facility] Specimen Type POC Capillary 11/07/2024 3:23 AM EDT [facility] Blood Capillary blood specimen / Unknown 11/07/2024 3:21 AM EDT 11/07/2024 3:23 AM EDT us Nathaly Nowak MD LAB POINT OF CARE TE ST DOCKED DEVICE UNSOLICITED RESULTS Final Result Performing Organization Address City/[facility]/[facility] de Phone Number HEALTHCARE LAB [address] [place] [address] * (ABNORMAL) POCT glucose meter (11/07/2024 2:10 AM EDT) Pathologist [facility] POCT Glucose 146(H) 74 - [...] 11/07/2024 2:12 AM EDT [facility] Campaign Assistant ID Nelda Gerber 11/08/19 2:12 AM EDT [facility] Device ID [id number] 11/07/2024 2:12 AM EDT [facility] Specimen Type POC Capillary 11/07/2024 2:12 AM EDT [facility]ALTH[facility]ARE LAB Blood Capillary blood specimen / Unknown 11/07/2024 2:10 AM EDT 11/07/2024 2:12 AM EDT Nathaly Nowak MD LAB POINT OF CARE TE ST DOCKED DEVICE UNSOLICITED RESULTS Final Result Performing Organization Address [facility] de Phone Number HEALTHCARE LAB [address] [place] [address] * (ABNORMAL) POCT glucose meter (11/07/2024 1:08 [...] Comment 11/07/2024 1:10 AM EDT [facility]ALTHCARE LAB Campaign Assistant ID eNlda Gerber 11/08/19 1:10 AM EDT HEALTHCARE LAB Device ID [id number] 11/07/2024 1:10 AM EDT [facility]ALTH[facility]ARE LAB Specimen Type POC Capillary 11/07/2024 1:10 AM EDT [facility] Blood Capillary blood specimen / Unknown 11/07/2024 1:08 AM EDT 11/07/2024 1:10 AM EDT us Nathaly Nowak MD LAB POINT OF CARE TE ST DOCKED DEVICE UNSOLICITED RESULTS Final Result Performing Organization Address [facility] Co de Phone Number HEALTHCARE LAB [address] [place] [address] * (ABNORMAL) POCT glucose meter (11/07/2024 12:10 AM EDT) [facility] POCT Glucose 127(H) 74 - 99 [...] Comment 11/07/2024 12:13 AM EDT HEALTHCARE LAB Campaign Assistant ID Nelda Gerber 11/08/19 12:13 AM EDT [facility] Device ID [id number] 11/07/2024 12:13 AM EDT [facility] Specimen Type POC Capillary 11/07/2024 12:13 AM EDT [facility] Blood Capillary blood specimen / Unknown 11/07/2024 12:10 AM EDT 11/07/2024 12:13 AM EDT Nathaly Nowak MD LAB POINT OF CARE TE ST DOCKED DEVICE UNSOLICITED RESULTS Final Result [facility] [address] [place] [address] * (ABNORMAL) POCT glucose meter (11/06/2024 11:14 PM EDT) [facility] POCT Glucose 71(L) 74 - 99 [...] 11/06/2024 11:16 PM EDT [facility] Campaign Assistant ID Nelda eGrber 11/07/19 11:16 PM EDT [facility] Device ID [id number] 11/06/2024 11:16 PM EDT [facility] Specimen Type POC Capillary 11/06/2024 11:16 PM EDT [facility]ALTH[facility]ARE LAB Blood Capillary blood specimen / Unknown 11/06/2024 11:14 PM EDT 11/06/2024 11:16 PM EDT Nathaly Nowak MD LAB POINT OF CARE TE ST DOCKED DEVICE UNSOLICITED RESULTS Final Result Performing Organization Address City/[facility]/ZIP Co de Phone Number HEALTHCARE LAB [address] [place] [address] * (ABNORMAL) POCT glucose meter (11/06/2024 10:07 [...] Comment 11/06/2024 10:09 PM EDT HEALTHCARE LAB Campaign Assistant ID Nelda Gerber 11/07/19 10:09 PM EDT HEALTHCARE LAB Device ID [id number] 11/06/2024 10:09 PM EDT [facility]ALTH[facility]ARE LAB Specimen Type POC Capillary 11/06/2024 10:09 PM EDT [facility] LAB Blood Capillary blood specimen / Unknown 11/06/2024 10:07 PM EDT 11/06/2024 10:09 PM EDT Nathaly Nowak MD LAB POINT OF CARE TE ST DOCKED DEVICE UNSOLICITED RESULTS Final Result Performing Organization Address City/[facility]/ZIP Co de Phone Number HEALTHCARE [facility] [address] [place] [address] * (ABNORMAL) POCT glucose meter (11/06/2024 8:22 [...] 11/06/2024 8:25 PM EDT [facility] Campaign Assistant ID Nelda Gerber 11/07/19 8:25 PM EDT [facility] Device ID [id number] 11/06/2024 8:25 PM EDT [facility] Specimen Type POC Capillary 11/06/2024 8:25 PM EDT [facility]ALTH[facility] LAB Blood Capillary blood specimen / Unknown 11/06/2024 8:22 PM EDT 11/06/2024 8:25 PM EDT us Nathaly Nowak MD LAB POINT OF CARE TE ST DOCKED DEVICE UNSOLICITED RESULTS Final Result Performing Organization Address City/State/[facility] Co de Phone Number [facility] [address] [place] [address] * (ABNORMAL) POCT glucose meter (11/06/2024 7:31 PM EDT) [facility] POCT Glucose 359(H) 74 - [...] 11/06/2024 7:32 PM EDT [facility] Campaign Assistant ID Nelda Gerber 11/07/19 7:32 PM EDT [facility] Device ID [id number] 11/06/2024 7:32 PM EDT [facility] Specimen Type POC Capillary 11/06/2024 7:32 PM EDT [facility] Blood Capillary blood specimen / Unknown 11/06/2024 7:31 PM EDT 11/06/2024 7:32 PM EDT Nathaly Nowak MD LAB POINT OF CARE TE ST DOCKED DEVICE UNSOLICITED RESULTS Final Result Performing Organization Address City/[facility]/[facility] Co de Phone Number HEALTHCARE LAB [address] [place] [address] * (ABNORMAL) POCT glucose meter (11/06/2024 6:15 [...] for testing. Comment 11/06/2024 6:17 PM EDT [facility] Campaign Assistant ID Estefani Sheth 11/06/2024 6:17 PM EDT [facility] Device ID [id number] 11/06/2024 6:17 PM EDT [facility] Specimen Type POC Capillary 11/06/2024 6:17 PM EDT [facility] Blood Capillary blood specimen / Unknown 11/06/2024 6:15 PM EDT 11/06/2024 6:17 PM EDT Nathaly Nowak MD LAB POINT OF CARE TE ST DOCKED DEVICE UNSOLICITED RESULTS Final Result Performing Organization Address City/[facility]/[facility] Co de Phone Number [facility] [address] [place] [address] * (ABNORMAL) POCT glucose meter (11/06/2024 4:57 [...] Comment 11/06/2024 4:58 PM EDT HEALTHCARE LAB Campaign Assistant ID Estefani Sheth 11/06/2024 4:58 PM EDT HEALTH[facility]ARE LAB Device ID [id number] 11/06/2024 4:58 PM EDT [facility]ALTH[facility]ARE LAB Specimen Type POC Capillary 11/06/2024 4:58 PM EDT [facility]ARE LAB Blood Capillary blood specimen / Unknown 11/06/2024 4:57 PM EDT 11/06/2024 4:58 PM EDT us Nathaly Nowak MD LAB POINT OF CARE TE ST DOCKED DEVICE UNSOLICITED RESULTS Final Result Performing Organization Address City/[facility]/ZIP Co de Phone Number HEALTHCARE LAB [address] [place] [address] * (ABNORMAL) POCT glucose meter (11/06/2024 2:08 [...] Comment 11/06/2024 2:09 PM EDT [facility]ALTH[facility]ARE LAB Campaign Assistant ID Brigitte Castellon 11/06/2024 2:09 PM EDT HEALTH[facility]ARE LAB Device ID [id number] 11/06/2024 2:09 PM EDT [facility]ALTH[facility]ARE LAB Specimen Type POC Capillary 11/06/2024 2:09 PM EDT [facility] Blood Capillary blood specimen / Unknown 11/06/2024 2:08 PM EDT 11/06/2024 2:09 PM EDT us Nathaly Nowak MD LAB POINT OF CARE TE ST DOCKED DEVICE UNSOLICITED RESULTS Final Result Performing Organization Address City/[facility]/ZIP Co de Phone Number HEALTHCARE LAB [address] [place] [address] * (ABNORMAL) POCT glucose meter (11/06/2024 12:27 [...] Comment 11/06/2024 12:28 PM EDT HEALTHCARE LAB Campaign Assistant ID Jacinta Galloway 11/06/2024 12:28 PM EDT HEALTH[facility]ARE LAB Device ID [id number] 11/06/2024 12:28 PM EDT [facility]ALTH[facility]ARE LAB Specimen Type POC Capillary 11/06/2024 12:28 PM EDT [facility] LAB Blood Capillary blood specimen / Unknown 11/06/2024 12:27 PM EDT 11/06/2024 12:28 PM EDT us Nathaly Nowak MD LAB POINT OF CARE TE ST DOCKED DEVICE UNSOLICITED RESULTS Final Result Performing Organization Address City/State/[facility] Co de Phone Number [facility] [address] [place] [address] * (ABNORMAL) Tissue Culture and Gram Stain (11/06/2024 11:34 AM EDT) [facility] Culture Moderate Growth 7:35 AM EDT [facility] Culture 2+ Enterobacter cloacae complex(A) ANGÉLICA 11/15/2024 7:35 AM EDT [facility] Comment: This isolate has been identified using the FDA Approved AeroFS CA System The organism value for this result has been updated. These results have been appended to the previously preliminary verified report. Edited result: Previously reported as Gram Negative Jesus on 11/07/2024 at 1434 EDT. Culture 2+ Streptococcus mitis/oralis group(A) ANGÉLICA 11/15/2024 7:35 AM EDT [facility] Comment: This isolate has been identified using the FDA Approved Qumaser CA System The organism value for this result has been updated. These results have been appended to the previously preliminary verified report. Culture 2+ Pasteurella stomatis(A) ANGÉLICA 11/15/2024 7:35 AM EDT [facility] Comment: This result was determined by MALDI tof mass spectrometry using the [employer] database and is for research use only. [...] GENERAL ORDE LAM Edited Result - Final [facility] [address] [place] [address] * (ABNORMAL) Anaerobic Culture (11/06/2024 11:34 AM EDT) Culture No anaerobes isolated 11/14/2024 1:25 PM EDT [facility] Culture Staphylococcus pseudintermedius( A) 11/14/2024 1:25 PM EDT [facility] Comment: This result was determined by MALDI tof mass spectrometry using the [employer] database and is for research use only. [...] Final [facility] [address] [place] [address] * (ABNORMAL) Routine Culture and Gram Stain (11/06/2024 11:29 AM EDT) Culture Moderate Growth 5:29 PM EDT [facility] Culture Enterobacter cloacae complex(A) 11/08/2024 5:29 PM EDT [facility] Comment: This isolate has been identified using the FDA Approved Qumaser CA System For susceptibility results refer to: - [id number] The organism value for this result has [...] MEDICAL CENTER Final Result Performing Organization Address [facility] Co de Phone Number [facility] [address] [place] [address] * Fungal Culture, Routine (11/06/2024 11:29 AM EDT) Culture No Fungal Growth at 1 Week 11/13/2024 8:29 AM EDT [facility] Swab Topography unknown / Unknown 11/06/2024 11:29 AM EDT 11/06/2024 12:19 PM EDT Comment:Pre-op diagnosis: Surgical wound infection [T81.49XA] Nathaly Nowak MD LAB MICROBIOLOGY - GENERAL ORDE RABLES Final Result Performing Organization Address City/[facility]/[facility] Co de Phone Number [facility] [address] [place] [address] * (ABNORMAL) Anaerobic Culture (11/06/2024 11:29 AM EDT) Culture No anaerobes isolated 11/14/2024 1:25 PM EDT [facility] Culture Streptococcus mitis/oralis group(A) 11/14/2024 1:25 PM EDT [facility] Comment: This result was determined by MALDI tof mass spectrometry using the [employer] database and is for research use only. [...] has been identified using the FDA Approved ganttoyper CA System This is an appended report. [...] - Final [facility] [address] [place] [address] * Routine Culture and Gram Stain (11/06/2024 [...] ORDE LAM Final Result Performing Organization Address City/[facility]/[facility] Co de Phone Number [facility] [address] [place] [address] * Fungal Culture, Routine (11/06/2024 11:28 AM EDT) Culture No Fungal Growth at 1 Week 11/13/2024 8:29 AM EDT [facility] Swab Topography unknown / Unknown 11/06/2024 11:28 AM EDT 11/06/2024 12:20 PM EDT Comment:Pre-op diagnosis: Surgical wound infection [T81.49XA] us Nathaly Nowak MD LAB MICROBIOLOGY - GENERAL ORDE LAM Final Result Performing Organization Address City/[facility]/[facility] Co de Phone Number [facility] [address] [place] [address] * Anaerobic Culture (11/06/2024 11:28 AM EDT) Culture No growth at day 4 11/13/2024 12:53 PM EDT [facility] Swab Topography unknown / Unknown 11/06/2024 11:28 AM EDT 11/06/2024 12:20 PM EDT Comment:Pre-op diagnosis: Surgical wound infection [T81.49XA] us Nathaly Nowak MD LAB MICROBIOLOGY - GENERAL ORDE RABONEIDA Final Result [facility] [address] [place] [address] * (ABNORMAL) POCT glucose meter (11/06/2024 10:16 AM EDT) [facility] POCT Glucose 194(H) 74 - 99 [...] Comment 11/06/2024 10:18 AM EDT HEALTHCARE LAB Campaign Assistant ID Elias, Lacy 11/07/19 10:18 AM EDT HEALTHCARE LAB Device ID [id number] 11/06/2024 10:18 AM EDT HEALTHCARE LAB Specimen Type POC Capillary 11/06/2024 10:18 AM EDT [facility] Blood Capillary blood specimen / Unknown 11/06/2024 10:16 AM EDT 11/06/2024 10:18 AM EDT Nathaly Nowak MD LAB POINT OF CARE TE ST DOCKED DEVICE UNSOLICITED RESULTS Final Result Performing Organization Address [facility] Co de Phone Number HEALTHCARE LAB [address] [place] [address] * (ABNORMAL) POCT glucose meter (11/06/2024 5:58 AM EDT) [facility] POCT Glucose 182(H) 74 - 99 [...] Comment 11/06/2024 6:01 AM EDT HEALTHCARE LAB Campaign Assistant ID Raj Laird 11/07/19 6:01 AM EDT HEALTHCARE LAB Device ID [id number] 11/06/2024 6:01 AM EDT [facility]ALTHCARE LAB Specimen Type POC Capillary 11/06/2024 6:01 AM EDT [facility]ALTH[facility]ARE LAB Blood Capillary blood specimen / Unknown 11/06/2024 5:58 AM EDT 11/06/2024 6:01 AM EDT Nathaly Nowak MD LAB POINT OF CARE TE ST DOCKED DEVICE UNSOLICITED RESULTS Final Result Performing Organization Address City/[facility]/[facility] Co de Phone Number [facility]ALTH[facility]ARE LAB [address] [place] [address] * (ABNORMAL) POCT glucose meter (11/06/2024 5:36 AM EDT) Pathologist [facility] POCT Glucose 202(H) 74 - [...] 11/06/2024 5:38 AM EDT [facility] Campaign Assistant ID Shahid Sanches 11/06/2024 5:38 AM EDT HEALTHCARE LAB Device ID [id number] 11/06/2024 5:38 AM EDT HEALTHCARE LAB Specimen Type POC Capillary 11/06/2024 5:38 AM EDT [facility]ALTH[facility]ARE LAB Blood Capillary blood specimen / Unknown 11/06/2024 5:36 AM EDT 11/06/2024 5:38 AM EDT us Nathaly Nowak MD LAB POINT OF CARE TE ST DOCKED DEVICE UNSOLICITED RESULTS Final Result Performing Organization Address City/[facility]/[facility] Co de Phone Number [facility]ARE [facility] [address] [place] [address] * (ABNORMAL) Hemoglobin A1c (11/06/2024 1:07 AM [...] Adults <6.0% Children and Adolescents <7.5% Source: [employer]. Standards of medical care in diabetes,2017. Diabetes Care.2017:40 (suppl 1):S1-S135. us Nathaly Nowak MD LAB BLOOD ORDERABLES Final Resu lt Performing Organization Address City/[facility]/ZIP Co de Phone Number [facility] [address] [place] [address] * Blood Culture (Aerobic/Anaerobet Set) (11/06/2024 1:07 AM EDT) Culture No growth at day 5 11/11/2024 2:49 AM EDT [facility] Blood Structure of right hand / Unknown Venipuncture / Unknown 11/06/2024 1:07 AM EDT 11/06/2024 2:36 AM EDT us Nathaly Nowak MD LAB MICROBIOLOGY - GENERAL ORDE RABLES Final Result [facility] [address] [place] [address] * Blood Culture (Aerobic/Anaerobet Set) (11/06/2024 1:07 AM EDT) Culture No growth at day 5 11/11/2024 3:01 AM EDT [facility] Blood Structure of antecubital vein / Unknown Venipuncture / Unknown 11/06/2024 1:07 AM EDT 11/06/2024 2:36 AM EDT us Nathaly Nowak MD LAB MICROBIOLOGY - GENERAL ORDAna FRITZ Final Result [facility] [address] [place] [address] * (ABNORMAL) Basic metabolic panel (11/06/2024 1:07 [...] ORDERABLES Final Resu lt Performing Organization Address [facility]/ZIP Co de Phone Number [facility] [address] [place] [address] * Phosphorus (11/06/2024 1:07 AM EDT) Phosphorus, Plasma 3.2 2.5 - 4.5 mg/dL 11/06/2024 1:41 AM EDT [facility] Blood Venous blood specimen / Unknown Venipuncture / Unknown 11/06/2024 1:07 AM EDT 11/06/2024 1:12 AM EDT Nathaly Nowak MD LAB BLOOD ORDERABLES Final Resu lt Performing Organization Address [facility]/[facility] Co de Phone Number [facility] [address] [place] [address] * Magnesium (11/06/2024 1:07 AM EDT) Magnesium, Plasma 2.2 1.9 - 2.4 mg/dL 11/06/2024 1:41 AM EDT [facility] Blood Venous blood specimen / Unknown Venipuncture / Unknown 11/06/2024 1:07 AM EDT 11/06/2024 1:12 AM EDT Nathaly Nowak MD LAB BLOOD ORDERABLES Final Resu lt Performing Organization Address City/[facility]/ZIP Co de Phone Number [facility] [address] [place] [address] * (ABNORMAL) CBC (11/06/2024 1:07 AM EDT) [...] Resu lt [facility] [address] [place] [address] * [facility] (11/06/2024 12:58 AM EDT) Extra Hold for add-ons 11/06/2024 3:21 AM EDT [facility] Comment:Auto resulted. Blood Venous blood specimen / Unknown 11/06/2024 12:58 AM EDT 11/06/2024 1:13 AM EDT us Nathaly Nowak MD LAB BLOOD ORDERABLES Final Resu lt Performing Organization Address [facility]/ZIP Co de Phone Number [facility] [address] [place] [address] * Gold Top (11/06/2024 12:58 AM EDT) Extra Hold for add-ons 11/06/2024 3:21 AM EDT [facility] Comment:Auto resulted. Blood Venous blood specimen / Unknown 11/06/2024 12:58 AM EDT 11/06/2024 1:13 AM EDT us Nathaly Nowak MD LAB BLOOD ORDERABLES Final Resu lt Performing Organization Address [facility] Co de Phone Number [facility] [address] [place] [address] * Light Green Top (11/06/2024 12:58 AM EDT) Extra Hold for add-ons 11/06/2024 3:21 AM EDT [facility] Comment:Auto resulted. Blood Venous blood specimen / Unknown 11/06/2024 12:58 AM EDT 11/06/2024 1:13 AM EDT us Nathaly Nowak MD LAB BLOOD ORDERABLES Final Resu lt Performing Organization Address [facility] Co de Phone Number [facility] [address] [place] [address] * Light Blue Top (11/06/2024 12:58 AM EDT) Extra Hold for add-ons 11/06/2024 3:21 AM EDT [facility] Comment:Auto resulted. Blood Venous blood specimen / Unknown 11/06/2024 12:58 AM EDT 11/06/2024 1:13 AM EDT us Nathaly Nowak MD LAB BLOOD ORDERABLES Final Resu lt Performing Organization Address [facility]/ZIP Co de Phone Number [facility] [address] [place] [address] * Light Blue Top (11/06/2024 12:58 AM EDT) Pathologist [facility] Extra Hold for add-ons 11/06/2024 3:21 AM EDT [facility] Comment:Auto resulted. Blood Venous blood specimen / Unknown 11/06/2024 12:58 AM EDT 11/06/2024 1:13 AM EDT Nathaly Nowak MD LAB BLOOD ORDERABLES Final Resu lt Performing Organization Address City/[facility]/ZIP Co de Phone Number [facility] [address] [place] [address] * (ABNORMAL) POCT glucose meter (11/06/2024 12:45 AM EDT) [facility] POCT Glucose 204(H) 74 - 99 [...] Comment 11/06/2024 12:48 AM EDT [facility] Campaign Assistant ID Raj Laird 11/07/19 25 12:48 AM EDT [facility] Device ID [id number] 11/06/2024 12:48 AM EDT [facility] Specimen Type POC Capillary 11/06/2024 12:48 AM EDT [facility] Blood Capillary blood specimen / Unknown 11/06/2024 12:45 AM EDT 11/06/2024 12:48 AM EDT us Nathaly Nowak MD LAB POINT OF CARE TE ST DOCKED DEVICE UNSOLICITED RESULTS Final Result Performing Organization Address City/[facility]/[facility] Co de Phone Number [facility] [address] [place] [address] documented in this encounter Visit Diagnoses Diagnosis [...] needed, Starting on Mon11/06/24 at 0031, Until [facility] 11/14/24 at 1804, Routine, line care sodium [...] needed, Starting on Mon11/06/24 at 0753, Until [facility] 11/14/24 at 1804, Routine, On Unit - Preprocedure, line care sodium chloride 0.9 % flush 10 mL 10 mL, Intravenous, Every 12 hours, First dose on [facility] 11/09/24 at 1515, Until Discontinued, [...] 0900, Routine 0940 (Given - Provider: Devora oB)[id number] (Given - Provider: Jonathan Vale RN) 0840 [...] documented as of this encounter Care Teams Roller Embosser Relationship Specialty Start Date End Date Asad Victor MD [address] [place] [address] PCP - General 10/07/22 documented as of this encounter
--- OUTSIDE RECORDS SUMMARY | 2024-11-06 10:08 | XMS_ITS | Encounter Summary ---
Author Organization Healthcare Address [address] [place] [address] Care Team Providers Care Thermal Spray Operator Name Role Phone Asad Victor MD Primary Care Provider + [phone] Reason for Visit * Reason Comments Post-op Problem Wound Check * Auth/Cert (Routine) Specialty Diagnoses / Procedures Referred By Contac t Referred To Contact Diagnoses Wound infection Post-op Vasc Sx wounds - sx on 10/17 at Nathaly Nowak MD [address] [address] Phone: tel: fax: [facility] Emergency [facility] [address] [place] [address] Phone: tel: Referral ID Status Reason Start Date Expiration Date Visits Re quested Visits Authorized [id number] 1 1 Encounter Details Date Type Department Care Team (Late st Contact Info) Description 11/06/2024 10:08 AM EDT - 11/06/2024 11:38 AM EDT Surgery [facility] OPERATING ROOM [address] [place] [address] Nathaly Nowak MD [id number] [place] [address] Left groin exploration and washout, [...] in the past 12 m [facility], were you homeless or living in a longterm (including now)? No 11/07/2024 CAGE ASSESSMENT Answer [...] first t dino in the morning (EYE-FISHER EEL SPEAR) to steady your nerves or to get rid of a hangover? 0 10/18/2021 CAGE Questionnaire Score 0 022 Utilities Answer Date Recorded In the past 12 months has [employer], gas, oil, or water [employer] threatened to shut off services in your [...] Carmona with any questions or concerns at [phone]. It is important that you get your [...] Note Bev Borja 64 y.o. male CSN: [id number] Admission: 11/05/2024 9:45 PM Primary Problem: Wound infection Primary Paleontology Teacher: Primary Caregiver: Self Assistance Available at Discharge: [...] days Follow-up: [facility] [address] [facility] [address] Go to Infusion Clinic. Please arrive at 11 am daily. [facility] [address] Go to Wound care clinic. First appointment is 1:10 pm. Please call [phone] with scheduling concerns. Discharge Transportation: Transportation Anticipated: medical transport Transportation Home at Discharge: Medical Transport Follow Up Transport: Transportation Needed to Follow up Appoinments: Medical Transport Additional Comments: Patient discharging home. No other SW needs identified. Mariia Monterroso TITLE OFFICER * Discharge Summary - Melecio Echevarria DO - 11/14/2024 12:46 PM EDT Hospitalization Admit Date/Time: 11/05/2024 9:45 PM Admitting Attending: Nathaly Nowak Discharge Date: 11/14/2024 Discharge Attending Physician: Nathaly Nowak MD PCP name and Address: Asad Victor MD (Inactive) [address] [place] [address] / [place] [address] Referring provider name and address: Wade Cowart, DO [address] [place] [address] Chief Concern, Brief History of Present Illness, and Hospital Course Mr. Borja is a 64 y/o male that presented to [facility] on 11/06/2024 for surgical wound infection [...] Your Medications These [facility]fusion [facility] - GLENDA Solorzano - [address], [place] [address] ertapenem injection micafungin injection Discharge Diagnosis Medical [...] Time Provider Department Center 11/26/2024 2:00 PM [facility] 1 [facility] 11/26/2024 2:30 PM [facility] 2 [facility] 11/26/2024 3:20 PM Elisabet Schuster PA [facility] 11/29/2024 2:30 PM Oscar Appiah MD [id number] [place] Test Results Pending At Discharge Pending Labs [...] a 64 y/o male that presented to [facility] on 11/06/2024 for surgical wound infection [...] RN - 11/14/2024 8:34 AM EDT BRENNAN Monterroos requested assistance with home health referral for [...] Performed by: Melecio Echevarria DO Authorized by: Natahly Nowak MD Consent: Consent obtained: Verbal DME [...] Note Bev Borja 64 y.o. male CSN: [id number] Admission: 11/05/2024 9:45 PM Primary Problem: Wound infection Wound vac to be delivered today by at bedside. SW sent referral/orders to [facility] wound care center (fax [phone]) and infusion clinic (fax [phone]). Plan to discharge tomorrow. SW will continue to follow. Mariia Monterroso TITLE OFFICER * Progress Notes - Bianca Knight PharmD - 11/13/2024 12:55 PM EDT Vancomycin therapy has been stopped per ID recommendation. Pharmacist will sign off from dosing and monitoring vancomycin. Please re- consult a pharmacist if more vancomycin is indicated. Bianca Knight PharmD, [facility] * Progress Notes - Ailin Levy [...] Lumen PICC Antimicrobial Regimen: IV Ertapenem 1g [id number] start date:11/06/2024 Projected End date:12/18/2024 IV Micafungin 150mg [id number] Start date: 11/12/2024 Projected End Date: 12/24/2024 [...] OPAT Team Attn: Dr Kraus Fax #: [phone] Appointments: (Dr Appiah 08/02/2024 at 2.30pm) at: [facility]: [address] [place] [address] (Select Option 3 for IV Antibiotic / PICC line related issues) For questions regarding OPAT prior to discharge, reach out to the OPAT team via [employer] Secure Chat (Group: OPAT Referral Team). For all questions regarding OPAT after discharge should be directed to the OPAT Team at (Select Option 3 for IV Antibiotics/PICC Issues) between 8am-5pm. After 5 pm, or during weekends/ holidays, please call the paging combat systems operator mine warfare at to reach the on-call ID fellow. [...] from the original note were not included. [facility] Department of Surgery Division of Vascular Surgery Surgery Progress Note 11/13/24 Bev Borja Subjective Subjective: HPI 64yoM PMHx COPD, T2DM, HLD, HTN, RLS, CAD s/p PCI (on Xarelto) s/p pacemaker c/b left SANDIP pseudoaneurysm s/p thrombin injection 09/21/24, CLI s/p left femoral endarterectomy with EIA/CLOTH PRINTER stenting 10/17/24, who presented to [facility] [...] 09/21/24, CLI s/p left femoral endarterectomy with EIA/CLOTH PRINTER stenting 10/17/24, who [facility] [...] the findings. Cardiac Device Check - PRE-OR [facility] EP-Device Clinic: Pre-operative CIED Report Assessment and Sara-Procedural Reommendations: Name: Bev Borja Date: 10/17/2024 : 1960 Age: 64 y.o. Patient has a Recreational Aide: Berger TRANSFER COORDINATOR-PM Remaining battery longevity adequate. Lead integrity [...] recommendations. Supporting reports can be found in [facility] media file. Micro: Susceptibility data from last [...] Units Date/Time Tissue Culture and Gram Stain [[id number]] (Abnormal) (Susceptibility) Collected: 11/06/24 1134 Order Status: Completed Specimen: Tissue from Other (specify site) Updated: 11/12/24 1334 Culture Moderate Growth 2+ Enterobacter cloacae complex Comment: This isolate has been identified using the FDA Approved [employer] CA System The organism value for this result has been updated. These results have been appended to the previously preliminary verified report. Edited result: Previously reported as Gram Negative Jesus on 11/07/2024 at 1434 EDT. 2+ Streptococcus mitis/oralis group Comment: This isolate has been identified using the FDA Approved MALDI [employer]yper CA System The organism value for this result has been updated. These results have been appended to the previously preliminary verified report. 2+ Pasteurella stomatis Comment: This result was determined by MALDI tof mass spectrometry using the DraftMix database and is for research use only. [...] stewardship team. Comprehensive GI Panel by PCR [[id number]] (Normal) Collected: 11/12/24 0950 Order Status: Completed [...] if clinically indicated. Clostridiodes (Clostridium) difficile PCR [[id number]] (Normal) Collected: 11/12/24 0950 Order Status: Completed [...] high complexity clinical laboratory testing. Anaerobic Culture [[id number]] Collected: 11/06/24 1128 Order Status: Completed Specimen: Swab from Other (specify site) Updated: 11/12/24 1118 Culture No growth at day 4 Fungal Culture, Tissue and ISIDRO [[id number]] (Abnormal) Collected: 11/06/24 1134 Order Status: Completed Specimen: Tissue from Other (specify site) Updated: 11/12/24 1033 Culture Reading Mycological 4 Weeks Rare Jackson Sana parapsilosis Comment: This isolate has been identified using the FDA Approved MALDI [employer] CA System The organism value for this result has been updated. These results have been appended to the previously preliminary verified report. Edited result: Previously reported as Yeast on 11/11/2024 at 1317 EDT. ISIDRO No fungal elements seen Additional Susceptibilities and/or Identification [[id number]] Collected: 11/11/24 1240 Order Status: Completed Specimen: Tissue from Wound (specify site): Additional Susceptibilities and/or Identification [[id number]] Collected: 11/11/24 1238 Order Status: Completed Specimen: Tissue from Wound (specify site): Additional Susceptibilities and/or Identification [[id number]] Collected: 11/11/24 1237 Order Status: Completed Specimen: Tissue from Wound (specify site): AFB Culture, Non Respiratory Source and Acid Fast Stain [[id number]] Collected: 11/06/24 1134 Order Status: Completed Specimen: Tissue from Other (specify site) Updated: 11/11/24 0938 AFB Culture No Mycobacterial Growth <1 Week Acid Fast Stain No acid fast bacilli seen Blood Culture (Aerobic/Anaerobet Set) [[id number]] Collected: 11/06/24106 Order Status: Completed Specimen: Blood from AC, Left Updated: 11/11/24 0301 Culture No growth at day 5 Blood Culture (Aerobic/Anaerobet Set) [[id number]] Collected: 11/06/24106 Order Status: Completed Specimen: Blood [...] OSH. [facility] [...] to stay a facility, plan for h [facility] daily IV abx. Plan [...] tablet 1,000 mg 1,000 mg Oral q6h [facility] Anthony Reyes MD 1,000 mg at [...] Prevent or Manage Pain Flowsheets (Taken 11/11/2024 8776 by Jonathan Vale RN) Sensory Stimulation Regulation: care clustered lighting decreased quiet environment promoted Medication Review/Management: medications reviewed * Consults - Anabel Ovalle RD - 11/12/2024 9:59 AM EDT Adult Nutrition Evaluation Note Bev Borja 64 y.o. male CSN: [id number] Room/Bed 682/682B Nutrition evaluation type: assessment Reason for evaluation: LOS Hospital course: 64 y.o. male with PMHx significant for COPD, CAD s/p PCI (on Xarelto) s/p pacemaker c/b left SANDIP pseudoaneurysm s/p thrombin injection 09/21/24, chronic limb ischemia s/p left femoralendarterectomy with external iliac/common femoral artery stenting 10/17/24, T2DM, HLD, HTN, RLS who presented to the [facility] on 11/05/2024 with problems with [...] (Room air) O2 Delivery Method: Face tent Darby Coma Scale Score: 15 Loi Scale Score: [...] (194 lb 3.6 oz) BMI (Calculated): 30.41 Pandora Body Weight (kg): 67.3 Percent Pandora Body Weight: 131 Adjusted Body Weight (kg): [...] oz) Estimated Needs: Kcal/ K-30 Kcal Provided: 3750-2431 Kcal Needs Based On: Adjusted weight Gm Protein/ Kg : 1.2-1.5 Protein Provided: 87-108 Protein Needs Based On: Adjusted weight Metabolic Cart Study Results: Current Nutrition Intake: Diet Order: Adult Diet Diet Texture: Regular Adult Carbohydrate Restriction: Consistent CHO 1 (0475-0132 Jatinder, 65 g/meal) Percent Meals Eaten (%): avg 63% x 6 emals Diet Experience and Nutrition History: Diet Education Provided: Will monitor Pertinent home medications: clopidogrel, docusate sodium, Lantus, Humalog, lisinopril, metoprolol tartrate, pravastatin, rivaroxaban, ropinirole, tamsulosin Zoroastrianism needs: Nutrition Focused Physical Exam: Physical exam [...] ENDARTERECTOMY N/A 2017 Endarterectomy Carotid Artery from Otonomy CORONARY ANGIOPLASTY Left Coronary Angiography With Concomitant Left Heart Catheterization from Otonomy CORONARY ARTERY BYPASS GRAFT N/A 2018 3V ELBOW SURGERY Right ENDARTERECTOMY Left 10/17/2024 common/SFA/Profunda thromboendarterectomy, EIA/CLOTH PRINTER stent HERNIA REPAIR KNEE ARTHROSCOPY Left VASCULAR SURGERY Left 09/21/2024 CLOTH PRINTER pseudoaneurym injection [3] Social History Tobacco Use [...] the original note were not included. [facility] Department of Surgery Division of Vascular Surgery Surgery Progress Note 11/12/24 Bev Perez Cristoferkeo Subjective Subjective: HPI 64yoM PMHx COPD, T2DM, HLD, HTN, RLS, CAD s/p PCI (on Xarelto) s/p pacemaker c/b left SANDIP pseudoaneurysm s/p thrombin injection 09/21/24, CLI s/p left femoral endarterectomy with EIA/CLOTH PRINTER stenting 10/17/24, who [facility] [...] 09/21/24, CLI s/p left femoral endarterectomy with EIA/CLOTH PRINTER stenting 10/17/24, who [facility] [...] the findings. Cardiac Device Check - PRE-OR [facility] EP-Device Clinic: Pre-operative CIED Report Assessment and Sara-Procedural Reommendations: Name: Bev Borja Date: 10/17/2024 : 1960 Age: 64 y.o. Patient has a Recreational Aide: CellScope TRANSFER COORDINATOR-PM Remaining battery longevity adequate. Lead integrity [...] recommendations. Supporting reports can be found in [facility] media file. Micro: Susceptibility data from last [...] Units Date/Time Tissue Culture and Gram Stain [[id number]] (Abnormal) (Susceptibility) Collected: 11/06/24 1134 Order Status: Completed Specimen: Tissue from Other (specify site) Updated: 11/12/24 1334 Culture Moderate Growth 2+ Enterobacter cloacae complex Comment: This isolate has been identified using the FDA Approved [employer] CA System The organism value for this result has been updated. These results have been appended to the previously preliminary verified report. Edited result: Previously reported as Gram Negative Jesus on 11/07/2024 at 1434 EDT. 2+ Streptococcus mitis/oralis group Comment: This isolate has been identified using the FDA Approved [employer] CA System The organism value for this result has been updated. These results have been appended to the previously preliminary verified report. 2+ Pasteurella stomatis Comment: This result was determined by MALDI tof mass spectrometry using the DraftMix database and is for research use only. [...] stewardship team. Comprehensive GI Panel by PCR [[id number]] (Normal) Collected: 11/12/24 0950 Order Status: Completed [...] if clinically indicated. Clostridiodes (Clostridium) difficile PCR [[id number]] (Normal) Collected: 11/12/24 0950 Order Status: Completed [...] high complexity clinical laboratory testing. Anaerobic Culture [[id number]] Collected: 11/06/24 1128 Order Status: Completed Specimen: Swab from Other (specify site) Updated: 11/12/24 1118 Culture No growth at day 4 Fungal Culture, Tissue and ISIDRO [[id number]] (Abnormal) Collected: 11/06/24 1134 Order Status: Completed Specimen: Tissue from Other (specify site) Updated: 11/12/24 1033 Culture Reading Mycological 4 Weeks Rare Jackson Sana parapsilosis Comment: This isolate has been identified using the FDA Approved [employer] CA System The organism value for this result has been updated. These results have been appended to the previously preliminary verified report. Edited result: Previously reported as Yeast on 11/11/2024 at 1317 EDT. ISIDRO No fungal elements seen Additional Susceptibilities and/or Identification [[id number]] Collected: 11/11/24 1240 Order Status: Completed Specimen: Tissue from Wound (specify site): Additional Susceptibilities and/or Identification [[id number]] Collected: 11/11/24 1238 Order Status: Completed Specimen: Tissue from Wound (specify site): Additional Susceptibilities and/or Identification [[id number]] Collected: 11/11/24 1237 Order Status: Completed Specimen: Tissue from Wound (specify site): AFB Culture, Non Respiratory Source and Acid Fast Stain [[id number]] Collected: 11/06/24 1134 Order Status: Completed Specimen: Tissue from Other (specify site) Updated: 11/11/24 0938 AFB Culture No Mycobacterial Growth <1 Week Acid Fast Stain No acid fast bacilli seen Blood Culture (Aerobic/Anaerobet Set) [[id number]] Collected: 11/06/24106 Order Status: Completed Specimen: Blood from AC, Left Updated: 11/11/24 0301 Culture No growth at day 5 Blood Culture (Aerobic/Anaerobet Set) [[id number]] Collected: 11/06/24106 Order Status: Completed Specimen: Blood [...] OSH. On 11/06, pt went to the [facility] vascular surgery for left groin [...] tablet 1,000 mg 1,000 mg Oral q6h [facility] Anthony Reyes MD 1,000 mg at 11/12/24 1356 aspirin chewable tablet 81 mg 81 mg Oral Daily Reid Daniels MD 81 mg at 11/12/24 0938 cefepime (Maxipime) 2 g in sodium chloride 0.9% 100 mL IVPB (vial adapter required) 2 g [id number] Reid Daniels MD 36.7 mL/hr at 11/12/24 [...] PM Anthony Reyes MD 0.4 mg at [id number] Vancomycin HCl in NaCl (Vancocin) IVPB 1,000 [...] send him home on micafungin as Rare Jackson Sana parapsilosis grew and we do not [...] Note Bev Borja 64 y.o. male CSN: [id number] Admission: 11/05/2024 9:45 PM Primary Problem: Wound infection Patient refusing inpatient placement for IV abx. [facility] infusion clinic can provide treatment. Face sheet, IV abx orders, and order for PICC care/labs/dressing changes need to be faxed to [phone]. Voicemail left with wound care clinic. Wound vac approved per , delivery pending. Crysll continue to follow. Mariia Monterroso TITLE OFFICER * Progress Notes - Dotty Sethi MD [...] the findings. Cardiac Device Check - PRE-OR [facility] EP-Device Clinic: Pre-operative CIED Report Assessment and Sara-Procedural Reommendations: Name: Bev Borja Date: 10/17/2024 : 1960 Age: 64 y.o. Patient has a Recreational Aide: Berger TRANSFER COORDINATOR-PM Remaining battery longevity adequate. Lead integrity [...] recommendations. Supporting reports can be found in [facility] media file. Micro: Susceptibility data from last [...] Non Respiratory Source and Acid Fast Stain [[id number]] Collected: 11/06/24 1134 Order Status: Completed Specimen: Tissue from Other (specify site) Updated: 11/11/24 0938 AFB Culture No Mycobacterial Growth <1 Week Acid Fast Stain No acid fast bacilli seen Blood Culture (Aerobic/Anaerobet Set) [[id number]] Collected: 11/06/24106 Order Status: Completed Specimen: Blood from AC, Left Updated: 11/11/24 0301 Culture No growth at day 5 Blood Culture (Aerobic/Anaerobet Set) [[id number]] Collected: 11/06/24 010 Order Status: Completed Specimen: Blood from Hand, Right Updated: 11/11/24 0249 Culture No growth at day 5 Anaerobic Culture [[id number]] Collected: 11/06/24 1128 Order Status: Completed Specimen: Swab from Other (specify site) Updated: 11/10/24 1441 Culture No growth at day 4 Routine Culture and Gram Stain [[id number]] Collected: 11/06/24 1128 Order Status: Completed Specimen: Swab from Other (specify site) Updated: 11/10/24 1124 Culture No growth at day 4 Gram Stain Result No organisms seen No polymorphonuclear leukocytes seen Anaerobic Culture [[id number]] (Abnormal) Collected: 11/06/24 112 Order Status: Completed Specimen: Swab from Other (specify site) Updated: 11/10/24 0718 Culture No anaerobes isolated Mixed skin clifton Comment: The organism value for this result has been updated. These results have been appended to the previously preliminary verified report. Narrative: Mixed Skin Clifton includes Streptococcus mitis/oralis group and Staphylococcus Pseudintermedius Anaerobic Culture [[id number]] (Abnormal) Collected: 11/06/24 1134 Order Status: Completed [...] OSH. On 11/06, pt went to the [facility] vascular surgery for left groin [...] mL IVPB (vial adapter required) 2 g [id number] Reid Daniels MD 36.7 mL/hr at 11/11/24 [...] PM Anthony Reyes MD 0.4 mg at [id number] Vancomycin HCl in NaCl (Vancocin) IVPB 1,000 [...] the original note were not included. [facility] Department of Surgery Division of Vascular Surgery Surgery Progress Note 11/11/24 Bev Borja Subjective Subjective: HPI 64yoM PMHx COPD, T2DM, HLD, HTN, RLS, CAD s/p PCI (on Xarelto) s/p pacemaker c/b left SANDIP pseudoaneurysm s/p thrombin injection 09/21/24, CLI s/p left femoral endarterectomy with EIA/CLOTH PRINTER stenting 10/17/24, [facility] [...] 09/21/24, CLI s/p left femoral endarterectomy with EIA/CLOTH PRINTER stenting 10/17/24, who [facility] [...] to follow, Submitted by: Kalpesh Lord PharmD, [facility] 11/10/2024 12:45 PM * Care Plan [...] 09/21/24, CLI s/p left femoral endarterectomy with EIA/CLOTH PRINTER stenting 10/17/24, [facility] [...] 09/21/24, CLI s/p left femoral endarterectomy with EIA/CLOTH PRINTER stenting 10/17/24, who [facility] [...] Barraza RN Authorized by: Nathaly Nowak MD Thompson Protocol: Verbal consent obtained?: Yes Written consent [...] selection rationale: Left pacemaker Catheter Lot #: [id number] 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 Patient reports he went to [facility] 12th floor via w/c yesterday to [...] Mobility: Ambulatory- community (was utilizing scooter at [employer] since discharge) Mobility Montgomery: Independent gait with device History of Falls: [...] Mobility Bed Mobility Exam: Scooting/Bridging Level of Montgomery: Modified independence Bed Mobility Exam: Supine to Sit Level of Montgomery: Modified Montgomery Transfers Transfer Exam: Sit to stand Level of Montgomery: Modified independence Assistive Device: Rollator Transfer Exam: Stand to Sit Level of Montgomery: Modified independence Assistive Device: Rollator Ambulation Device: [...] functional mobility and endurance. Standardized Assessments [facility] 6-Clicks Mobility Assessment Difficulty patient has [...] steps with a railing?: A little [facility] 6-Clicks Mobility Assessment Total : 22 [...] Mobility Ambulatory- community (was utilizing scooter at [employer] since discharge) Mobility Montgomery Independent gait with device History of Falls [...] distal to knee) BED MOBILITY Level of Montgomery Physical/Non-physical Assist Adaptive Equipment Utilized Scooting/ Bridging Modified independence Supine to Sit Modified Montgomery TRANSFERS Level of Montgomery Physical/Non-physical Assist Adaptive Equipment Utilized Sit to Stand Modified independence Rollator Stand to sit Modified independence Rollator Toilet Transfer Modified independence Grab bar FUNCTIONAL MOBILITY Ambulation Modified independent 200ft x2 with seated rest break between bouts; RPE 5-7/10. Cues forsafety with rollator brakes. Rollator Comments BALANCE Postural Appearance Posture: Within Functional Limits Level of Montgomery Balance Support Static Sit Independent Feet supported Dynamic Sit Independent Feet supported Static Stand Independent Right upper extremity support, Left upper extremity support (via rollator) Dynamic Stand Independent Right upper extremity support, Left upper extremity support (via rollator) STANDARDIZED ASSESSMENTS [facility] 6-Click Daily Activities [...] needed areas of treatment space. Level of Montgomery Interventions Grooming Modified independent Standing sinkside Pt [...] Outcome: Ongoing, Progressing 11/08/2024 1346 by Brigitte Casetllon RN Flowsheets (Taken 11/08/2024 0700) Patient/Family-Specific Goals [...] Note Bev Borja 64 y.o. male CSN: [id number] Admission: 11/05/2024 9:45 PM Primary Problem: Wound [...] follow and assist as needed. Mariia Monterroso TITLE OFFICER * Progress Notes - Bianca Knight PharmD [...] the original note were not included. [facility] Department of Surgery Division of Vascular Surgery Surgery Progress Note 11/08/24 Bev Borja Subjective Subjective: HPI 64yoM PMHx COPD, T2DM, HLD, HTN, RLS, CAD s/p PCI (on Xarelto) s/p pacemaker c/b left SANDIP pseudoaneurysm s/p thrombin injection 09/21/24, CLI s/p left femoral endarterectomy with EIA/CLOTH PRINTER stenting 10/17/24, [facility] 10/19 Pseudoaneurysm of left femoral artery ([facility]) COPD (chronic obstructive pulmonary disease) ([facility]) Overview Signed 10/18/2021 7:30 PM by Gallo Gallardo MD Not on home inhalers A-fib ([facility]) Overview Addendum 10/19/2021 10:39 AM by Giovanna Junior APRN Hold anticoagulation Metoprolol restarted BPH (benign prostatic hyperplasia) Overview Addendum 10/19/2021 10:41 AM by Giovanna Junior APRN Flomax restarted Subarachnoid hemorrhage ([facility]) Overview Addendum 10/20/2021 8:23 AM by Giovanna Junior APRN Left frontal, right occipital NSGY consulted - Repeat CTH showing slight worsening of tSAH - no need for further imaging, will continue to follow clinically 10/20: spoke with NSGY via phone and stated to hold ASA and Xarelto for 2 weeks Closed compression fracture of L3 lumbar vertebra, initial encounter ([facility]) Overview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 Co de Phone Number [facility]ARE [facility] [address] [place] [address] * (ABNORMAL) POCT glucose meter (11/11/2024 8:18 PM EDT) [facility] POCT Glucose 248(H) 74 - 99 mg/dL [...] Comment 11/11/2024 8:20 PM EDT [facility] Laborer Demolition ID Nelda Gerber 11/12/19 8:20 PM EDT [facility] Device ID [id number] 11/11/2024 8:20 PM EDT [facility] Specimen Type POC Capillary 11/11/2024 8:20 PM EDT [facility] Blood Capillary blood specimen / Unknown 11/11/2024 8:18 PM EDT 11/11/2024 8:20 PM EDT Nathaly Nowak MD LAB POINT OF CARE TE ST DOCKED DEVICE UNSOLICITED RESULTS Final Result Performing Organization Address City/[facility] Co de Phone Number [facility] [address] [place] [address] * (ABNORMAL) POCT glucose meter (11/11/2024 5:59 PM EDT) [facility] POCT Glucose 147(H) 74 - 99 mg/dL [...] Comment 11/11/2024 6:01 PM EDT [facility] Laborer Demolition ID Wade Feliciano 6:01 PM EDT [facility] Device ID [id number] 11/11/2024 6:01 PM EDT [facility] Specimen Type POC Capillary 11/11/2024 6:01 PM EDT [facility] Blood Capillary blood specimen / Unknown 11/11/2024 5:59 PM EDT 11/11/2024 6:01 PM EDT Nathaly Nowak MD LAB POINT OF CARE TE ST DOCKED DEVICE UNSOLICITED RESULTS Final Result Performing Organization Address City/[facility]/ZIP Co de Phone Number [facility] [address] [place] [address] * POCT glucose meter (11/11/2024 5:20 PM EDT) [facility] POCT Glucose 84 74 - 99 mg/dL [...] Comment 11/11/2024 5:22 PM EDT [facility] Laborer Demolition ID Wade Feliciano 5:22 PM EDT [facility] Device ID [id number] 11/11/2024 5:22 PM EDT [facility] Specimen Type POC Capillary 11/11/2024 5:22 PM EDT [facility] Blood Capillary blood specimen / Unknown 11/11/2024 5:20 PM EDT 11/11/2024 5:22 PM EDT us Nathaly Nowak MD LAB POINT OF CARE TE ST DOCKED DEVICE UNSOLICITED RESULTS Final Result [facility] [address] [place] [id number] * [place] NEGATIVE PRESSURE WOUND THERAPY DME >50 SQ [...] 11/11/2024 12:10 PM EDT [facility] Laborer Demolition ID BradenWade 12:10 PM EDT [facility] Device ID [id number] 11/11/2024 12:10 PM EDT [facility] Specimen Type POC Capillary 11/11/2024 12:10 PM EDT [facility] Blood Capillary blood specimen / Unknown 11/11/2024 12:08 PM EDT 11/11/2024 12:10 PM EDT us Nathaly Nowak MD LAB POINT OF CARE TE ST DOCKED DEVICE UNSOLICITED RESULTS Final Result [facility] [address] [place] [address] * (ABNORMAL) POCT glucose meter (11/11/2024 9:08 AM EDT) POCT Glucose 162(H) 74 - 99 mg/dL 11/11/2024 9:09 AM EDT [email or web address] Comment:Accuracy of a glucos e result [...] for testing. Comment 11/11/2024 9:09 AM EDT [email or web address] Laborer Demolition ID Wade Feliciano 9:09 AM EDT [email or web address] Device ID [id number] 11/11/2024 9:09 AM EDT [facility] Specimen Type POC Capillary 11/11/2024 9:09 AM EDT [facility] Blood Capillary blood specimen / Unknown 11/11/2024 9:08 AM EDT 11/11/2024 9:09 AM EDT us Nathaly Nowak MD LAB POINT OF CARE TE ST DOCKED DEVICE UNSOLICITED RESULTS Final Result [facility] [address] [place] [address] * POCT glucose meter (11/11/2024 8:27 AM EDT) Pathologist [facility] POCT Glucose 87 74 - 99 mg/dL 11/11/2024 8:28 AM EDT [email or web address] Comment:Accuracy of a glucos e result [...] Comment 11/11/2024 8:28 AM EDT [facility] Laborer Demolition ID Wade Feliciano 8:28 AM EDT [facility] Device ID [id number] 11/11/2024 8:28 AM EDT [facility] Specimen Type POC Capillary 11/11/2024 8:28 AM EDT [facility] Blood Capillary blood specimen / Unknown 11/11/2024 8:27 AM EDT 11/11/2024 8:28 AM EDT us Nathaly Nowak MD LAB POINT OF CARE TE ST DOCKED DEVICE UNSOLICITED RESULTS Final Result [facility] [address] [place] [address] * (ABNORMAL) Basic Metabolic Panel, Plasma (11/11/2024 [...] Resu lt [facility] [address] [place] [address] * (ABNORMAL) CBC W/O Differential (11/11/2024 12:56 [...] ORDERABLES Final Resu lt Performing Organization Address City/[facility]/ZIP Co de Phone Number [facility] [address] [place] [address] * (ABNORMAL) POCT glucose meter (11/10/2024 8:25 [...] Comment 11/10/2024 8:28 PM EDT [facility] Laborer Demolition ID Nelda Gerber 11/11/19 8:28 PM EDT [facility] Device ID [id number] 11/10/2024 8:28 PM EDT [facility] Specimen Type POC Capillary 11/10/2024 8:28 PM EDT [facility] Blood Capillary blood specimen / Unknown 11/10/2024 8:25 PM EDT 11/10/2024 8:28 PM EDT us Nathaly Nowak MD LAB POINT OF CARE TE ST DOCKED DEVICE UNSOLICITED RESULTS Final Result Performing Organization Address City/[facility]/ZIP Co de Phone Number [facility] [address] [place] [address] * (ABNORMAL) POCT glucose meter (11/10/2024 4:45 [...] 11/10/2024 4:47 PM EDT [facility] Laborer Demolition ID Esperanza Parks 11/10/2024 4:47 PM EDT [facility] Device ID [id number] 11/10/2024 4:47 PM EDT [facility] Specimen Type POC Capillary 11/10/2024 4:47 PM EDT [facility] Blood Capillary blood specimen / Unknown 11/10/2024 4:45 PM EDT 11/10/2024 4:47 PM EDT Nathaly Nowak MD LAB POINT OF CARE TE ST DOCKED DEVICE UNSOLICITED RESULTS Final Result Performing Organization Address City/State/[facility] Co de Phone Number [facility] [address] [place] [address] * (ABNORMAL) POCT glucose meter (11/10/2024 12:13 PM EDT) [facility] POCT Glucose 131(H) 74 - 99 mg/dL [...] 11/10/2024 12:14 PM EDT [facility] Laborer Demolition ID Esperanza Parks 11/10/2024 12:14 PM EDT [facility] Device ID [id number] 11/10/2024 12:14 PM EDT [facility] Specimen Type POC Capillary 11/10/2024 12:14 PM EDT [facility] Blood Capillary blood specimen / Unknown 11/10/2024 12:13 PM EDT 11/10/2024 12:14 PM EDT us Nathaly Nowak MD LAB POINT OF CARE TE ST DOCKED DEVICE UNSOLICITED RESULTS Final Result Performing Organization Address [facility] Co de Phone Number [facility] [address] [place] [address] * Vancomycin, Peak, Plasma Please draw ~2 hours after 0800 dose of vancomycin finishes infusing. Consider obtaining level via peripheral stick. If peripheral stick is not feasible, please ensure that line is flushed well prior to drawing level. Than... (11/10/2024 10:56 AM EDT) [facility] Vancomycin, Peak, Plasma 23.8 20.0 - 40.0 ug/mL 11/10/2024 11:25 AM EDT [facility] Blood Venous blood specimen / Unknown Venipuncture / Unknown 11/10/2024 10:56 AM EDT 11/10/2024 11:[address] [facility] - 11/10/2024 11:25 AM EDT Therapeutic Peak level: 20-40ug/mL Supra-therapeutic Peak level: >40 ug/mL us Abigail Seay MD LAB BLOOD ORDERABLES Final Res ult Performing Organization Address [facility] de Phone Number [facility] [address] [place] [address] * (ABNORMAL) POCT glucose meter (11/10/2024 8:03 AM EDT) [facility] POCT Glucose 174(H) 74 - 99 mg/dL 11/10/2024 8:04 AM EDT [email or web address] Comment:Accuracy of a glucos e result [...] Comment 11/10/2024 8:04 AM EDT [facility] Laborer Demolition ID Pierre Parksn 11/10/2024 8:04 AM EDT [facility] Device ID [id number] 11/10/2024 8:04 AM EDT [facility] Specimen Type POC Capillary 11/10/2024 8:04 AM EDT [facility] Blood Capillary blood specimen / Unknown 11/10/2024 8:03 AM EDT 11/10/2024 8:04 AM EDT us Nathaly Nowak MD LAB POINT OF CARE TE ST DOCKED DEVICE UNSOLICITED RESULTS Final Result Performing Organization Address [facility] Co de Phone Number [facility] [address] [place] [address] * Vancomycin, Trough, Plasma Please draw ~30 [...] Final Res ult Performing Organization Address [facility]/ZIP Co de Phone Number [facility] [address] [place] [address] * (ABNORMAL) CBC and Differential (11/10/2024 12:31 [...] lt [facility] [address] [place] [address] * (ABNORMAL) Comprehensive Metabolic Panel, Plasma (11/10/2024 [...] Final Resu lt [facility] [address] [place] [address] * (ABNORMAL) POCT glucose meter (11/09/2024 8:04 PM EDT) [facility] POCT Glucose 114(H) 74 - 99 mg/dL [...] Comment 11/09/2024 8:06 PM EDT [facility] Laborer Demolition ID Maximiliano Hansen II 11/09/2024 8:06 PM EDT [facility] Device ID [id number] 11/09/2024 8:06 PM EDT [facility] Specimen Type POC Capillary 11/09/2024 8:06 PM EDT [facility] Blood Capillary blood specimen / Unknown 11/09/2024 8:04 PM EDT 11/09/2024 8:06 PM EDT Nathaly Nowak MD LAB POINT OF CARE TE ST DOCKED DEVICE UNSOLICITED RESULTS Final Result Performing Organization Address [facility] Co de Phone Number [facility] [address] [place] [address] * (ABNORMAL) POCT glucose meter (11/09/2024 4:36 PM EDT) [facility] POCT Glucose 166(H) 74 - 99 mg/dL [...] 11/09/2024 4:38 PM EDT [facility] Laborer Demolition ID IanKristian 11/09/2024 4:38 PM EDT [facility] Device ID [id number] 11/09/2024 4:38 PM EDT [facility] Specimen Type POC Capillary 11/09/2024 4:38 PM EDT [facility] Blood Capillary blood specimen / Unknown 11/09/2024 4:36 PM EDT 11/09/2024 4:38 PM EDT Nathaly Nowak MD LAB POINT OF CARE TE ST DOCKED DEVICE UNSOLICITED RESULTS Final Result [facility] [address] [place] [address] * PICC SINGLE LUMEN ([employer] LINK) (11/09/2024 1:11 PM EDT) Narrative Estefani Barraza RN - 11/09/2024 1:11 PM EDT Estefani Barraza RN 11/09/2024 1:12 PM Insert PICC line Date/Time: 11/09/2024 1:11 PM Performed by: Estefani Barraza RN Authorized by: Nathaly Nowak MD Thompson Protocol: Verbal consent obtained?: Yes Written consent [...] selection rationale: Left pacemaker 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 Lot #: [id number] 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[employer] Catheter placed: Single lumen Catheter size: 4 [...] Comment 11/09/2024 11:51 AM EDT [facility] Laborer Demolition ID Kristian Sosa 11/09/2024 11:51 AM EDT [email or web address] Device ID [id number] 11/09/2024 11:51 AM EDT [facility] Specimen Type POC Capillary 11/09/2024 11:51 AM EDT [facility] Blood Capillary blood specimen / Unknown 11/09/2024 11:50 AM EDT 11/09/2024 11:51 AM EDT Nathaly Nowak MD LAB POINT OF CARE TE ST DOCKED DEVICE UNSOLICITED RESULTS Final Result [facility] [address] [place] [address] * (ABNORMAL) POCT glucose meter (11/09/2024 8:14 [...] Comment 11/09/2024 8:15 AM EDT [facility] Laborer Demolition ID Kristian Sosa 11/09/2024 8:15 AM EDT [facility] Device ID [id number] 11/09/2024 8:15 AM EDT [facility] Specimen Type POC Capillary 11/09/2024 8:15 AM EDT [facility] Blood Capillary blood specimen / Unknown 11/09/2024 8:14 AM EDT 11/09/2024 8:15 AM EDT us Nathaly Nowak MD LAB POINT OF CARE TE ST DOCKED DEVICE UNSOLICITED RESULTS Final Result Performing Organization Address City/State/[facility] Co de Phone Number [facility] [address] [place] [address] * (ABNORMAL) CBC and Differential (11/09/2024 4:15 [...] LAB HEMATOLOGY METHOD 11/09/2024 4:26 AM EDT [facility] Lymphocytes Absolute 1.32 1.20 - [...] Resu lt [facility] [address] [place] [address] * (ABNORMAL) Comprehensive Metabolic Panel, Plasma (11/09/2024 [...] Resu lt [facility] [address] [place] [address] * (ABNORMAL) POCT glucose meter (11/09/2024 3:30 AM EDT) POCT Glucose 160(H) 74 - 99 mg/dL 11/09/2024 3:31 AM EDT [facility] Comment:Accuracy of a glucos e [...] Comment 11/09/2024 3:31 AM EDT [facility] Laborer Demolition ID Maximiliano Hansen II 11/09/2024 3:31 AM EDT [facility] Device ID [id number] 11/09/2024 3:31 AM EDT [facility] Specimen Type POC Capillary 11/09/2024 3:31 AM EDT [facility] Blood Capillary blood specimen / Unknown 11/09/2024 3:30 AM EDT 11/09/2024 3:31 AM EDT Nathaly Nowak MD LAB POINT OF CARE TE ST DOCKED DEVICE UNSOLICITED RESULTS Final Result Performing Organization Address City/[facility]/ZIP Co de Phone Number [facility] [address] [place] [address] * (ABNORMAL) POCT glucose meter (11/08/2024 7:21 [...] Comment 11/08/2024 7:22 PM EDT [facility] Laborer Demolition ID Maximiliano Hansen II 11/08/2024 7:22 PM EDT [facility] Device ID [id number] 11/08/2024 7:22 PM EDT [facility] Specimen Type POC Capillary 11/08/2024 7:22 PM EDT [facility] Blood Capillary blood specimen / Unknown 11/08/2024 7:21 PM EDT 11/08/2024 7:22 PM EDT Nathaly Nowak MD LAB POINT OF CARE TE ST DOCKED DEVICE UNSOLICITED RESULTS Final Result Performing Organization Address City/[facility]/ZIP Co de Phone Number [facility] [address] [place] [address] * (ABNORMAL) POCT glucose meter (11/08/2024 5:12 PM EDT) [facility] POCT Glucose 178(H) 74 - 99 mg/dL [...] Comment 11/08/2024 5:14 PM EDT [facility] Laborer Demolition ID Estefani Sheth 11/08/2024 5:14 PM EDT [email or web address] Device ID [id number] 11/08/2024 5:14 PM EDT [email or web address] Specimen Type POC Capillary 11/08/2024 5:14 PM EDT [facility] Blood Capillary blood specimen / Unknown 11/08/2024 5:12 PM EDT 11/08/2024 5:14 PM EDT Nathaly Nowak MD LAB POINT OF CARE TE ST DOCKED DEVICE UNSOLICITED RESULTS Final Result Performing Organization Address City/State/[facility] Co de Phone Number [facility] [address] [place] [address] * (ABNORMAL) POCT glucose meter (11/08/2024 12:03 PM EDT) [facility] POCT Glucose 191(H) 74 - 99 mg/dL [...] 11/08/2024 12:05 PM EDT [facility] Laborer Demolition ID Estefani Sheth 11/08/2024 12:05 PM EDT [facility] Device ID [id number] 11/08/2024 12:05 PM EDT [facility] Specimen Type POC Capillary 11/08/2024 12:05 PM EDT [facility] Blood Capillary blood specimen / Unknown 11/08/2024 12:03 PM EDT 11/08/2024 12:05 PM EDT Result [facility] Nathaly Nowak MD LAB POINT OF CARE TE ST DOCKED DEVICE UNSOLICITED RESULTS Final Result Performing Organization Address [facility] de Phone Number [facility] [address] [place] [address] * Vancomycin, Peak, Plasma Please draw ~2 hours after 11/08 0600 dose of vancomycin finishes infusing.Consider obtaining level via peripheral stick. If peripheral stick is not feasible, please ensure that line is flushed well prior to drawing level.... (11/08/2024 9:24 AM EDT) [facility] Vancomycin, Peak, Plasma 29.1 20.0 - 40.0 ug/mL 11/08/2024 10:31 AM EDT [facility] Blood Venous blood specimen / Unknown Venipuncture / Unknown 11/08/2024 9:24 AM EDT 11/08/2024 9:[address] [facility] - 11/08/2024 10:31 AM EDT Therapeutic Peak level: 20-40ug/mL Supra-therapeutic Peak level: >40 ug/mL Nathaly Nowak MD LAB BLOOD ORDERABLES Final Resu lt Performing Organization Address [facility] de Phone Number [facility] [address] [place] [address] * (ABNORMAL) POCT glucose meter (11/08/2024 8:00 AM EDT) [facility] POCT Glucose 150(H) 74 - 99 mg/dL 11/08/2024 8:01 AM EDT [facility] Comment:Accuracy of a glucos e [...] Comment 11/08/2024 8:01 AM EDT [facility] Laborer Demolition ID Estefani Sheth 11/08/2024 8:01 AM EDT [facility] Device ID [id number] 11/08/2024 8:01 AM EDT [facility] Specimen Type POC Capillary 11/08/2024 8:01 AM EDT [facility] Blood Capillary blood specimen / Unknown 11/08/2024 8:00 AM EDT 11/08/2024 8:01 AM EDT us Nathaly Nowak MD LAB POINT OF CARE TE ST DOCKED DEVICE UNSOLICITED RESULTS Final Result [facility] [address] [place] [address] * (ABNORMAL) CBC and Differential (11/08/2024 4:39 [...] Resu lt [facility] [address] [place] [address] * (ABNORMAL) Comprehensive Metabolic Panel, Plasma (11/08/2024 [...] lt [facility] [address] [place] [address] * Vancomycin, Trough, Plasma Please draw ~30 [...] ORDERABLES Final Resu lt Performing Organization Address City/[facility]/ZIP Co de Phone Number [facility] [address] [place] [address] * (ABNORMAL) POCT glucose meter (11/07/2024 7:26 PM EDT) Pathologist [facility] POCT Glucose 172(H) 74 - 99 [...] Comment 11/07/2024 7:28 PM EDT [facility] Laborer Demolition ID Maximiliano Hansen II 11/07/2024 7:28 PM EDT [facility] Device ID [id number] 11/07/2024 7:28 PM EDT [facility] Specimen Type POC Capillary 11/07/2024 7:28 PM EDT [facility] Blood Capillary blood specimen / Unknown 11/07/2024 7:26 PM EDT 11/07/2024 7:28 PM EDT us Nathaly Nowak MD LAB POINT OF CARE TE ST DOCKED DEVICE UNSOLICITED RESULTS Final Result Performing Organization Address City/[facility]/ZIP Co de Phone Number [facility] [address] [place] [address] * (ABNORMAL) POCT glucose meter (11/07/2024 5:51 PM EDT) Pathologist [facility] POCT Glucose 183(H) 74 - 99 [...] 11/07/2024 5:52 PM EDT [facility] Laborer Demolition ID Brigitte Castellon 11/07/2024 5:52 PM EDT [facility] Device ID [id number] 11/07/2024 5:52 PM EDT [facility] Specimen Type POC Capillary 11/07/2024 5:52 PM EDT [facility] Blood Capillary blood specimen / Unknown 11/07/2024 5:51 PM EDT 11/07/2024 5:52 PM EDT us Nathaly Nowak MD LAB POINT OF CARE TE ST DOCKED DEVICE UNSOLICITED RESULTS Final Result Performing Organization Address City/[facility] Co de Phone Number [facility] [address] [place] [address] * (ABNORMAL) POCT glucose meter (11/07/2024 4:47 [...] 11/07/2024 4:48 PM EDT [facility] Laborer Demolition ID Estefani Sheth 11/07/2024 4:48 PM EDT [facility] Device ID [id number] 11/07/2024 4:48 PM EDT [facility] Specimen Type POC Capillary 11/07/2024 4:48 PM EDT [facility] Blood Capillary blood specimen / Unknown 11/07/2024 4:47 PM EDT 11/07/2024 4:48 PM EDT us Nathaly Nowak MD LAB POINT OF CARE TE ST DOCKED DEVICE UNSOLICITED RESULTS Final Result Performing Organization Address City/[facility] Co de Phone Number [facility] [address] [place] [address] * (ABNORMAL) POCT glucose meter (11/07/2024 12:22 PM EDT) [facility] POCT Glucose 172(H) 74 - 99 mg/dL [...] Comment 11/07/2024 12:24 PM EDT [facility] Laborer Demolition ID Estefani Sheth 11/07/2024 12:24 PM EDT [facility] Device ID [id number] 11/07/2024 12:24 PM EDT [facility] Specimen Type POC Capillary 11/07/2024 12:24 PM EDT [facility] Blood Capillary blood specimen / Unknown 11/07/2024 12:22 PM EDT 11/07/2024 12:24 PM EDT us Nathaly Nowak MD LAB POINT OF CARE TE ST DOCKED DEVICE UNSOLICITED RESULTS Final Result [facility] [address] [place] [address] * (ABNORMAL) CBC and Differential (11/07/2024 11:37 AM EDT) [facility] WBC Count 9.96 3.70 - 10.30 10*3/uL [...] Resu lt [facility] [address] [place] [address] * (ABNORMAL) Comprehensive Metabolic Panel, Plasma (11/07/2024 11:37 AM EDT) Glucose, Plasma 173(H) 74 - 99 mg/dL 11/07/2024 1:[address] [facility] BUN, Plasma 13 8 - 23 mg/dL 11/07/2024 1:[address] [facility] Creatinine, Plasma 0.92 0.70 - 1.20 mg/dL 11/07/2024 1:[address] [facility] BUN/Creatinine Ratio 11/07/2024 1:[address] [facility] [...] Resu lt [facility] [address] [place] [address] * Type and Screen (11/07/2024 11:37 AM [...] ORDERABLES F inal Result Performing Organization Address City/[facility]/ZIP Co de Phone Number BLOOD BANK [address] * (ABNORMAL) POCT glucose meter (11/07/2024 [...] Comment 11/07/2024 10:36 AM EDT [facility] Laborer Demolition ID Joy Iraheta 11/07/2024 10:36 AM EDT [facility] Device ID [id number] 11/07/2024 10:36 AM EDT [facility] Specimen Type POC Capillary 11/07/2024 10:36 AM EDT [facility] Blood Capillary blood specimen / Unknown 11/07/2024 10:34 AM EDT 11/07/2024 10:36 AM EDT Nathaly Nowak MD LAB POINT OF CARE TE ST DOCKED DEVICE UNSOLICITED RESULTS Final Result [facility] [address] [place] [address] * (ABNORMAL) POCT glucose meter (11/07/2024 9:34 [...] Comment 11/07/2024 9:36 AM EDT [facility] Laborer Demolition ID Brigitte Castellon 11/07/2024 9:36 AM EDT [facility] Device ID [id number] 11/07/2024 9:36 AM EDT [facility] Specimen Type POC Capillary 11/07/2024 9:36 AM EDT [facility] Blood Capillary blood specimen / Unknown 11/07/2024 9:34 AM EDT 11/07/2024 9:36 AM EDT Nathaly Nowak MD LAB POINT OF CARE TE ST DOCKED DEVICE UNSOLICITED RESULTS Final Result Performing Organization Address City/State/[facility] Co de Phone Number [facility] [address] [place] [address] * (ABNORMAL) POCT glucose meter (11/07/2024 8:20 [...] Comment 11/07/2024 8:22 AM EDT [facility] Laborer Demolition ID Estefani Sheth 11/07/2024 8:22 AM EDT [facility] Device ID [id number] 11/07/2024 8:22 AM EDT [facility] Specimen Type POC Capillary 11/07/2024 8:22 AM EDT [facility] Blood Capillary blood specimen / Unknown 11/07/2024 8:20 AM EDT 11/07/2024 8:22 AM EDT Nathaly Nowak MD LAB POINT OF CARE TE ST DOCKED DEVICE UNSOLICITED RESULTS Final Result Performing Organization Address [facility] de Phone Number [facility] [address] [place] [address] * (ABNORMAL) POCT glucose meter (11/07/2024 7:21 AM EDT) Pathologist [facility] POCT Glucose 151(H) 74 - 99 [...] for testing. Comment 11/07/2024 7:22 AM EDT [facility] Laborer Demolition ID Brigitte Castellon 11/07/2024 7:22 AM EDT [facility] Device ID [id number] 11/07/2024 7:22 AM EDT [facility] Specimen Type POC Capillary 11/07/2024 7:22 AM EDT [facility] Blood Capillary blood specimen / Unknown 11/07/2024 7:21 AM EDT 11/07/2024 7:22 AM EDT Nathaly Nowak MD LAB POINT OF CARE TE ST DOCKED DEVICE UNSOLICITED RESULTS Final Result Performing Organization Address City/[facility] Co de Phone Number [facility] [address] [place] [address] * (ABNORMAL) POCT glucose meter (11/07/2024 6:25 [...] 11/07/2024 6:27 AM EDT [facility] Laborer Demolition ID Nelda Gerber 11/08/19 6:27 AM EDT [facility] Device ID [id number] 11/07/2024 6:27 AM EDT [facility] Specimen Type POC Capillary 11/07/2024 6:27 AM EDT [facility] Blood Capillary blood specimen / Unknown 11/07/2024 6:25 AM EDT 11/07/2024 6:27 AM EDT Nathaly Nowak MD LAB POINT OF CARE TE ST DOCKED DEVICE UNSOLICITED RESULTS Final Result Performing Organization Address [facility] de Phone Number [facility] [address] [place] [address] * (ABNORMAL) POCT glucose meter (11/07/2024 5:03 AM EDT) [facility] Signature POCT Glucose 139(H) 74 - 99 [...] Comment 11/07/2024 5:08 AM EDT [facility] Laborer Demolition ID Nelda Gerber 11/08/19 5:08 AM EDT [facility]ALTH[facility] LAB Device ID [id number] 11/07/2024 5:08 AM EDT [facility] Specimen Type POC Capillary 11/07/2024 5:08 AM EDT [facility] Blood Capillary blood specimen / Unknown 11/07/2024 5:03 AM EDT 11/07/2024 5:08 AM EDT Nathaly Nowak MD LAB POINT OF CARE TE ST DOCKED DEVICE UNSOLICITED RESULTS Final Result Performing Organization Address City/[facility] Co de Phone Number [facility] [address] [place] [address] * (ABNORMAL) POCT glucose meter (11/07/2024 4:16 AM EDT) [facility] POCT Glucose 142(H) 74 - 99 mg/dL [...] Comment 11/07/2024 4:18 AM EDT [facility] Laborer Demolition ID Nelda Gerber 11/08/19 4:18 AM EDT [facility] Device ID [id number] 11/07/2024 4:18 AM EDT [email or web address] LAB Specimen Type POC Capillary 11/07/2024 4:18 AM EDT [facility] Blood Capillary blood specimen / Unknown 11/07/2024 4:16 AM EDT 11/07/2024 4:18 AM EDT Nathaly Nowak MD LAB POINT OF CARE TE ST DOCKED DEVICE UNSOLICITED RESULTS Final Result [facility] [address] [place] [address] * (ABNORMAL) POCT glucose meter (11/07/2024 3:21 AM EDT) [facility] POCT Glucose 141(H) 74 - 99 mg/dL [...] 11/07/2024 3:23 AM EDT [facility] Laborer Demolition ID Nelda Gerber 11/08/19 3:23 AM EDT [facility] Device ID [id number] 11/07/2024 3:23 AM EDT [facility] Specimen Type POC Capillary 11/07/2024 3:23 AM EDT [facility] Blood Capillary blood specimen / Unknown 11/07/2024 3:21 AM EDT 11/07/2024 3:23 AM EDT Nathaly Nowak MD LAB POINT OF CARE TE ST DOCKED DEVICE UNSOLICITED RESULTS Final Result Performing Organization Address City/[facility] Co de Phone Number [facility] [address] [place] [address] * (ABNORMAL) POCT glucose meter (11/07/2024 2:10 [...] Comment 11/07/2024 2:12 AM EDT [facility] Laborer Demolition ID Nelda Gerber 11/08/19 2:12 AM EDT [facility] Device ID [id number] 11/07/2024 2:12 AM EDT [facility] Specimen Type POC Capillary 11/07/2024 2:12 AM EDT [facility] Blood Capillary blood specimen / Unknown 11/07/2024 2:10 AM EDT 11/07/2024 2:12 AM EDT Nathaly Nowak MD LAB POINT OF CARE TE ST DOCKED DEVICE UNSOLICITED RESULTS Final Result Performing Organization Address City/[facility] Co de Phone Number [facility] [address] [place] [address] * (ABNORMAL) POCT glucose meter (11/07/2024 1:08 [...] Comment 11/07/2024 1:10 AM EDT [facility] Laborer Demolition ID Nelda Gerber 11/08/19 1:10 AM EDT [facility] Device ID [id number] 11/07/2024 1:10 AM EDT [facility] Specimen Type POC Capillary 11/07/2024 1:10 AM EDT [facility] Blood Capillary blood specimen / Unknown 11/07/2024 1:08 AM EDT 11/07/2024 1:10 AM EDT Nathaly Nowak MD LAB POINT OF CARE TE ST DOCKED DEVICE UNSOLICITED RESULTS Final Result Performing Organization Address City/State/[facility] Co de Phone Number [facility] [address] [place] [address] * (ABNORMAL) POCT glucose meter (11/07/2024 12:10 AM EDT) [facility] POCT Glucose 127(H) 74 - 99 mg/dL [...] Comment 11/07/2024 12:13 AM EDT [facility] Laborer Demolition ID Nelda Gerber 11/08/19 12:13 AM EDT [facility] Device ID [id number] 11/07/2024 12:13 AM EDT [facility] Specimen Type POC Capillary 11/07/2024 12:13 AM EDT [facility] Blood Capillary blood specimen / Unknown 11/07/2024 12:10 AM EDT 11/07/2024 12:13 AM EDT Nathaly Nowak MD LAB POINT OF CARE TE ST DOCKED DEVICE UNSOLICITED RESULTS Final Result Performing Organization Address City/[facility] Co de Phone Number [facility] [address] [place] [address] * (ABNORMAL) POCT glucose meter (11/06/2024 11:14 [...] for testing. Comment 11/06/2024 11:16 PM EDT [facility] Laborer Demolition ID Nelda Gerber 11/07/19 11:16 PM EDT [email or web address] LAB Device ID [id number] 11/06/2024 11:16 PM EDT [facility] Specimen Type POC Capillary 11/06/2024 11:16 PM EDT [facility] Blood Capillary blood specimen / Unknown 11/06/2024 11:14 PM EDT 11/06/2024 11:16 PM EDT Nathaly Nwoak MD LAB POINT OF CARE TE ST DOCKED DEVICE UNSOLICITED RESULTS Final Result Performing Organization Address City/[facility] Co de Phone Number [facility] [address] [place] [address] * (ABNORMAL) POCT glucose meter (11/06/2024 10:07 [...] Comment 11/06/2024 10:09 PM EDT [facility] Laborer Demolition ID Nelda Gerber 11/07/19 10:09 PM EDT [facility] LAB Device ID [id number] 11/06/2024 10:09 PM EDT [facility] Specimen Type POC Capillary 11/06/2024 10:09 PM EDT [facility] Blood Capillary blood specimen / Unknown 11/06/2024 10:07 PM EDT 11/06/2024 10:09 PM EDT Nathaly Nowak MD LAB POINT OF CARE TE ST DOCKED DEVICE UNSOLICITED RESULTS Final Result Performing Organization Address City/[facility] Co de Phone Number [facility] [address] [place] [address] * (ABNORMAL) POCT glucose meter (11/06/2024 8:22 [...] Comment 11/06/2024 8:25 PM EDT [facility] Laborer Demolition ID Nelda Gerber 11/07/19 8:25 PM EDT [facility] LAB Device ID [id number] 11/06/2024 8:25 PM EDT [facility] Specimen Type POC Capillary 11/06/2024 8:25 PM EDT [facility] Blood Capillary blood specimen / Unknown 11/06/2024 8:22 PM EDT 11/06/2024 8:25 PM EDT us Nathaly Nowak MD LAB POINT OF CARE TE ST DOCKED DEVICE UNSOLICITED RESULTS Final Result Performing Organization Address City/[facility]/ZIP Co de Phone Number [facility] [address] [place] [address] * (ABNORMAL) POCT glucose meter (11/06/2024 7:31 PM EDT) Pathologist [facility] POCT Glucose 359(H) 74 - 99 [...] Comment 11/06/2024 7:32 PM EDT [facility] Laborer Demolition ID Nelda Gerber 11/07/19 7:32 PM EDT [facility] Device ID [id number] 11/06/2024 7:32 PM EDT [facility] Specimen Type POC Capillary 11/06/2024 7:32 PM EDT [facility] Blood Capillary blood specimen / Unknown 11/06/2024 7:31 PM EDT 11/06/2024 7:32 PM EDT us Nathaly Nowak MD LAB POINT OF CARE TE ST DOCKED DEVICE UNSOLICITED RESULTS Final Result Performing Organization Address City/State/[facility] Co de Phone Number [facility] [address] [place] [address] * (ABNORMAL) POCT glucose meter (11/06/2024 6:15 PM EDT) [facility] POCT Glucose 368(H) 74 - 99 mg/dL [...] 11/06/2024 6:17 PM EDT [facility] Laborer Demolition ID Estefani Sheth 11/06/2024 6:17 PM EDT [facility] Device ID [id number] 11/06/2024 6:17 PM EDT [facility] Specimen Type POC Capillary 11/06/2024 6:17 PM EDT [facility] Blood Capillary blood specimen / Unknown 11/06/2024 6:15 PM EDT 11/06/2024 6:17 PM EDT Nathaly Nowak MD LAB POINT OF CARE TE ST DOCKED DEVICE UNSOLICITED RESULTS Final Result Performing Organization Address City/[facility]/ZIP Co de Phone Number [facility] [address] [place] [address] * (ABNORMAL) POCT glucose meter (11/06/2024 4:57 [...] Comment 11/06/2024 4:58 PM EDT [facility] Laborer Demolition ID Estefani Sheth 11/06/2024 4:58 PM EDT [facility] Device ID [id number] 11/06/2024 4:58 PM EDT [facility] Specimen Type POC Capillary 11/06/2024 4:58 PM EDT [facility] Blood Capillary blood specimen / Unknown 11/06/2024 4:57 PM EDT 11/06/2024 4:58 PM EDT us Nathaly Nowak MD LAB POINT OF CARE TE ST DOCKED DEVICE UNSOLICITED RESULTS Final Result Performing Organization Address City/[facility]/ZIP Co de Phone Number [facility] [address] [place] [address] * (ABNORMAL) POCT glucose meter (11/06/2024 2:08 [...] Comment 11/06/2024 2:09 PM EDT [facility] Laborer Demolition ID Brigitte Castellon 11/06/2024 2:09 PM EDT [facility] LAB Device ID [id number] 11/06/2024 2:09 PM EDT [facility] Specimen Type POC Capillary 11/06/2024 2:09 PM EDT [facility] Blood Capillary blood specimen / Unknown 11/06/2024 2:08 PM EDT 11/06/2024 2:09 PM EDT us Nathaly Nowak MD LAB POINT OF CARE TE ST DOCKED DEVICE UNSOLICITED RESULTS Final Result Performing Organization Address City/State/[facility] Co de Phone Number [facility] [address] [place] [address] * (ABNORMAL) POCT glucose meter (11/06/2024 12:27 [...] Comment 11/06/2024 12:28 PM EDT [facility] Laborer Demolition ID Jacinta Galloway 11/06/2024 12:28 PM EDT [facility] Device ID [id number] 11/06/2024 12:28 PM EDT [facility] Specimen Type POC Capillary 11/06/2024 12:28 PM EDT [facility] Blood Capillary blood specimen / Unknown 11/06/2024 12:27 PM EDT 11/06/2024 12:28 PM EDT us Nathaly Nowak MD LAB POINT OF CARE TE ST DOCKED DEVICE UNSOLICITED RESULTS Final Result [facility] [address] [place] [address] * (ABNORMAL) Tissue Culture and Gram Stain (11/06/2024 11:34 AM EDT) Culture Moderate Growth 7:[address] [facility] Culture 2+ Enterobacter cloacae complex(A) ANGÉLICA 11/15/2024 7:[address] [facility] Comment: This isolate has been identified using the FDA Approved [employer] [place] System The organism value for this result has been updated. These results have been appended to the previously preliminary verified report. Edited result: Previously reported as Gram Negative Jesus on 11/07/2024 at 1434 EDT. Culture 2+ Streptococcus mitis/oralis group(A) ANGÉLICA 11/15/2024 7:[address] [facility] Comment: This isolate has been identified using the FDA Approved [employer] [place] System The organism value for this result has been updated. These results have been appended to the previously preliminary verified report. Culture 2+ Pasteurella stomatis(A) ANGÉLICA 11/15/2024 7:[address] [facility] Comment: This result was determined by [employer] tof mass spectrometry using the [employer] database and is for research use only. [...] LAM Edited Result - Final [facility] [address] [place] [address] * (ABNORMAL) Anaerobic Culture (11/06/2024 11:34 AM EDT) Culture No anaerobes isolated 11/14/2024 1:[address] [facility] Culture Staphylococcus pseudintermedius( A) 11/14/2024 1:[address] [facility] Comment: This result was determined by [employer] tof mass spectrometry using the [employer] database and is for research use only. [...] Edited Result - Final Performing Organization Address City/[facility] Co de Phone Number [facility] [address] [place] [address] * (ABNORMAL) Routine Culture and Gram Stain (11/06/2024 11:29 AM EDT) Culture Moderate Growth 5:[address] [facility] Culture Enterobacter cloacae complex(A) 11/08/2024 5:[address] [facility] Comment: This isolate has been identified using the FDA Approved [employer] [place] System For susceptibility results refer to: - [id number] The organism value for this result has [...] ATIYA FRITZ Final Result Performing Organization Address [facility] Co de Phone Number [facility] [address] [place] [address] * Fungal Culture, Routine (11/06/2024 11:29 AM EDT) Culture No Fungal Growth at 1 Week 11/13/2024 8:[address] [facility] Swab Topography unknown / Unknown 11/06/2024 11:29 AM EDT 11/06/2024 12:19 PM EDT Comment:Pre-op diagnosis: Surgical wound infection [T81.49XA] Nathaly Nowak MD LAB MICROBIOLOGY - [facility] Final Result [facility] [address] [place] [address] * (ABNORMAL) Anaerobic Culture (11/06/2024 11:29 AM EDT) Culture No anaerobes isolated 11/14/2024 1:[address] [facility] Culture Streptococcus mitis/oralis group(A) 11/14/2024 1:[address] [facility] Comment: This result was determined by [employer] tof mass spectrometry using the [employer] database and is for research use only. [...] has been identified using the FDA Approved [employer] [place] System This is an appended report. [...] Edited Result - Final Performing Organization Address [facility] Co de Phone Number [facility] [address] [place] [address] * Routine Culture and Gram Stain (11/06/2024 [...] ORDE LAM Final Result Performing Organization Address [facility] Co de Phone Number [facility] [address] [place] [address] * Fungal Culture, Routine (11/06/2024 11:28 AM EDT) Culture No Fungal Growth at 1 Week 11/13/2024 8:[address] [facility] Swab Topography unknown / Unknown 11/06/2024 11:28 AM EDT 11/06/2024 12:20 PM EDT Comment:Pre-op diagnosis: Surgical wound infection [T81.49XA] Nathaly Nowak MD LAB MICROBIOLOGY - GENERAL ORDE RABONEIDA Final Result Performing Organization Address [facility] Co de Phone Number [facility] [address] [place] [address] * Anaerobic Culture (11/06/2024 11:28 AM EDT) Culture No growth at day 4 11/13/2024 12:[address] [facility] Swab Topography unknown / Unknown 11/06/2024 11:28 AM EDT 11/06/2024 12:20 PM EDT Comment:Pre-op diagnosis: Surgical wound infection [T81.49XA] Nathaly Nowak MD LAB MICROBIOLOGY - [facility] LAM Final Result Performing Organization Address [facility] [place] [address] * (ABNORMAL) POCT glucose meter (11/06/2024 10:16 AM EDT) Pathologist [facility] POCT Glucose 194(H) 74 - 99 [...] 11/06/2024 10:18 AM EDT [facility] Laborer Demolition ID Lacy Griffin 11/07/19 25 10:18 AM EDT HEALTHCARE LAB Device ID [id number] 11/06/2024 10:18 AM EDT [facility]ALTH[facility] Specimen Type POC Capillary 11/06/2024 10:18 AM EDT [facility] Blood Capillary blood specimen / Unknown 11/06/2024 10:16 AM EDT 11/06/2024 10:18 AM EDT Nathaly Nowak MD LAB POINT OF CARE TE ST DOCKED DEVICE UNSOLICITED RESULTS Final Result Performing Organization Address [facility] de Phone Number [facility] [address] [place] [address] * (ABNORMAL) POCT glucose meter (11/06/2024 5:58 [...] for testing. Comment 11/06/2024 6:01 AM EDT [facility] Laborer Demolition ID Raj Laird 11/07/19 6:01 AM EDT [facility] Device ID [id number] 11/06/2024 6:01 AM EDT [facility] Specimen Type POC Capillary 11/06/2024 6:01 AM EDT [facility] Blood Capillary blood specimen / Unknown 11/06/2024 5:58 AM EDT 11/06/2024 6:01 AM EDT Nathaly Nowak MD LAB POINT OF CARE TE ST DOCKED DEVICE UNSOLICITED RESULTS Final Result Performing Organization Address City/[facility] Co de Phone Number [facility] [address] [place] [address] * (ABNORMAL) POCT glucose meter (11/06/2024 5:36 [...] Comment 11/06/2024 5:38 AM EDT [facility] Laborer Demolition ID Shahid Sanches 11/06/2024 5:38 AM EDT [facility]ALTH[facility]ARE LAB Device ID [id number] 11/06/2024 5:38 AM EDT [facility] Specimen Type POC Capillary 11/06/2024 5:38 AM EDT [facility] Blood Capillary blood specimen / Unknown 11/06/2024 5:36 AM EDT 11/06/2024 5:38 AM EDT us Nathaly Nowak MD LAB POINT OF CARE TE ST DOCKED DEVICE UNSOLICITED RESULTS Final Result Performing Organization Address [facility] Co de Phone Number [facility] [address] [place] [address] * (ABNORMAL) Hemoglobin A1c (11/06/2024 1:07 AM [...] Adults <6.0% Children and Adolescents <7.5% Source: [place] [employer]. Standards of medical care in diabetes,2017. Diabetes Care.2017:40 (suppl 1):S1-S135. us Nathaly Nowak MD LAB BLOOD ORDERABLES Final Resu lt Performing Organization Address City/[facility]/ZIP Co de Phone Number [facility] [address] [place] [address] * Blood Culture (Aerobic/Anaerobet Set) (11/06/2024 1:07 AM EDT) Culture No growth at day 5 11/11/2024 2:[address] [facility] Blood Structure of right hand / Unknown Venipuncture / Unknown 11/06/2024 1:07 AM EDT 11/06/2024 2:36 AM EDT Nathaly Nowak MD LAB MICROBIOLOGY - GENERAL ORDE RABLES Final Result Performing Organization Address [facility] Co de Phone Number [facility] [address] [place] [address] * Blood Culture (Aerobic/Anaerobet Set) (11/06/2024 1:07 AM EDT) Culture No growth at day 5 11/11/2024 3:[address] [facility] Blood Structure of antecubital vein / Unknown Venipuncture / Unknown 11/06/2024 1:07 AM EDT 11/06/2024 2:36 AM EDT Nathaly Nowak MD LAB MICROBIOLOGY - GENERAL ORDE LAM Final Result Performing Organization Address [facility] de Phone Number [facility] [address] [place] [address] * (ABNORMAL) Basic metabolic panel (11/06/2024 1:07 [...] Resu lt [facility] [address] [place] [address] * Phosphorus (11/06/2024 1:07 AM EDT) Phosphorus, Plasma 3.2 2.5 - 4.5 mg/dL 11/06/2024 1:[address] [facility] Blood Venous blood specimen / Unknown Venipuncture / Unknown 11/06/2024 1:07 AM EDT 11/06/2024 1:12 AM EDT us Nathaly Nowak MD LAB BLOOD ORDERABLES Final Resu lt [facility] [address] [place] [address] * Magnesium (11/06/2024 1:07 AM EDT) Magnesium, Plasma 2.2 1.9 - 2.4 mg/dL 11/06/2024 1:[address] [facility] Blood Venous blood specimen / Unknown Venipuncture / Unknown 11/06/2024 1:07 AM EDT 11/06/2024 1:12 AM EDT us Nathaly Nowak MD LAB BLOOD ORDERABLES Final Resu lt [facility] [address] [place] [address] * (ABNORMAL) CBC (11/06/2024 1:07 AM EDT) [...] Final Resu lt Performing Organization Address [facility]/ZIP Co de Phone Number [facility] [address] [place] [address] * Gold Top (11/06/2024 12:58 AM EDT) Extra Hold for add-ons 11/06/2024 3:[address] [facility] Comment:Auto resulted. Blood Venous blood specimen / Unknown 11/06/2024 12:58 AM EDT 11/06/2024 1:13 AM EDT us Nathaly Nowak MD LAB BLOOD ORDERABLES Final Resu lt Performing Organization Address [facility]/ZIP Co de Phone Number [facility] [address] [place] [address] * Gold Top (11/06/2024 12:58 AM EDT) Extra Hold for add-ons 11/06/2024 3:[address] [facility] Comment:Auto resulted. Blood Venous blood specimen / Unknown 11/06/2024 12:58 AM EDT 11/06/2024 1:13 AM EDT us Nathaly Nowak MD LAB BLOOD ORDERABLES Final Resu lt Performing Organization Address City/[facility] Co de Phone Number [facility] [address] [place] [address] * Light Green Top (11/06/2024 12:58 AM EDT) Extra Hold for add-ons 11/06/2024 3:[address] [facility] Comment:Auto resulted. Blood Venous blood specimen / Unknown 11/06/2024 12:58 AM EDT 11/06/2024 1:13 AM EDT us Nathaly Nowak MD LAB BLOOD ORDERABLES Final Resu lt Performing Organization Address [facility] Co de Phone Number [facility] [address] [place] [address] * Light Blue Top (11/06/2024 12:58 AM EDT) Extra Hold for add-ons 11/06/2024 3:[address] [facility] Comment:Auto resulted. Blood Venous blood specimen / Unknown 11/06/2024 12:58 AM EDT 11/06/2024 1:13 AM EDT us Nathaly Nowak MD LAB BLOOD ORDERABLES Final Resu lt Performing Organization Address [facility] de Phone Number [facility] [address] [place] [address] * Light Blue Top (11/06/2024 12:58 AM EDT) Extra Hold for add-ons 11/06/2024 3:[address] [facility] Comment:Auto resulted. Blood Venous blood specimen / Unknown 11/06/2024 12:58 AM EDT 11/06/2024 1:13 AM EDT Result [facility] us Nathaly Nowak MD LAB BLOOD ORDERABLES Final Resu lt Performing Organization Address [facility] de Phone Number [facility] [address] [place] [address] * (ABNORMAL) POCT glucose meter (11/06/2024 12:45 AM EDT) POCT Glucose 204(H) 74 - 99 mg/dL 11/06/2024 12:48 AM EDT [facility] Comment:Accuracy of a glucos e [...] Comment 11/06/2024 12:48 AM EDT [facility] Laborer Demolition ID Raj Laird 11/07/19 12:48 AM EDT HEALTHCARE LAB Device ID [id number] 11/06/2024 12:48 AM EDT [facility] Specimen Type POC Capillary 11/06/2024 12:48 AM EDT [facility] Blood Capillary blood specimen / Unknown 11/06/2024 12:45 AM EDT 11/06/2024 12:48 AM [facility] Nathaly Nowak MD LAB POINT OF CARE TE ST DOCKED DEVICE UNSOLICITED RESULTS Final Result [facility] [address] [place] [address] documented in this encounter Visit Diagnoses Diagnosis [...] needed, Starting on Mon11/06/24 at 0031, Until [facility] 11/14/24 at 1804, Routine, line care sodium [...] on Mon11/06/24 at 0753, Until [facility] 11/14/24 at 1804, Routine, On Unit - [...] - Provider: Devora Bo)[phone] (Given - Provider: Joanthan Vale RN) [phone] (Given - Provider: Yazmin [...] documented as of this encounter Care Teams Thermal Spray Operator Relationship Specialty Start Date End Date Asad Victor MD [address] [place] [address] PCP - General 10/07/22 documented as of this encounter
--- OUTSIDE RECORDS SUMMARY | 2024-11-06 10:47 | XMS_ITS | Encounter Summary ---
Author Organization Healthcare Address [address] [place] [address] Care Team Providers Care Therapist'S Assistant Name Role Phone Asad Victor MD Primary Care Provider + [phone] Reason for Visit * Auth/Cert (Routine) Specialty Diagnoses / Procedures Referred By Contac t Referred To Contact Diagnoses Wound infection Post-op Vasc Sx wounds - sx on 10/17 at Nathaly Nowak MD [address] [facility] [address] [place] [address] Phone: tel: fax: [facility] Emergency Department [address] [place] [address] Phone: tel: Referral ID Status Reason Start Date Expiration Date Visits Re quested Visits Authorized [id number] 1 1 Encounter Details Date Type Department Care Team (Late st Contact Info) Description 11/06/2024 10:47 AM EDT Anesthesia Event [facility] OPERATING ROOM [address] [place] [address] Bill Sue MD [address] [place] [address] Sabrina Mckeon PA [address] [facility] [address] [place] [address] Anesthesia Record Procedure Summary Procedure [...] any time in the past 12 [facility], were you homeless or living in [...] first t dino in the morning (EYE-BANK TELLER) to steady your nerves or to get [...] and Staff Patient location during procedure: OR CRABBER: Asad Lechuga CRNA, DNP Performed: CRABBER Patient Condition Indications for airway management: anesthesia [...] placement (Left) Location: [facility] OR 16 / [place] OR Surgeons: Nathaly Nowak MD [facility] Mono Ana Bobby is a 64 [...] Abnormal Ventricular Rate 85 Atrial Rate 85 [place] Interval 146 QRSD Interval 128 QT Interval 390 QTC Interval 464 P [place] 52 R [place] 263 T Wave [place] 57 Diagnosis Atrial-sensed ventricular-paced rhythm Diagnosis Biventricular [...] is no recent study available for direct gdgt-[id number]-klgg comparison. [facility]: Pre-operative CIED Report Assessment and Sara- Procedural Reommendations: Name: Mono Bobby Date: 10/17/2024 : 1960 Age: 64 y.o. Patient has a Installation Technician: Berger AUTOMATION CONTROL TECHNICIAN-PM Remaining battery longevity adequate. Lead integrity [...] RVR s/p CABG), CAD (CAD s/p multiple [place]'s and 3V CABG02/2019, 2 stents prior to CABG), carotid artery disease (carotid artery disease s/p R CEA 2016), dysrhythmias (3rd degree AV block AUTOMATION CONTROL TECHNICIAN-P placed 08/2023 for Wenkeback with 11 sec pause), hyperlipidemia, pacemaker and PVD. Does not have angina, CHF, murmur, orthopnea, syncope or valvular heart disease. hypertension: Cardio additional comments: Follows with OSH Card last seen 09/25/24 ([place]) . Respiratory: home oxygen (2L). no asthma: [...] ENDARTERECTOMY N/A 2017 Endarterectomy Carotid Artery from [facility] CORONARY ANGIOPLASTY Left Coronary Angiography With Concomitant Left Heart Catheterization from [facility] CORONARY ARTERY BYPASS GRAFT N/A 2018 3V ELBOW SURGERY Right ENDARTERECTOMY Left 10/17/2024 common/SFA/Profunda thromboendarterectomy, EIA/HAIR SPRING WINDER stent HERNIA REPAIR KNEE ARTHROSCOPY Left VASCULAR SURGERY Left 09/21/2024 HAIR SPRING WINDER pseudoaneurym injection [5] Social History Tobacco Use [...] Description 11/26/2024 2:00 PM EDT Hospital Encounter [facility] [address] [place] [address] 11/26/2024 2:30 PM EDT Hospital Encounter [facility] [address] [place] [address] 11/26/2024 3:20 PM EDT Office Visit [facility] [address] [place] [address] Elisabet Schuster PA [address] [facility] [address] [place] [address] 11/29/2024 2:30 PM EDT Office Visit [place] [id number] [place] [address] Oscar Appiah MD [address] [facility] [address] [place] [address] documented as of this encounter Goals Goal Patient Goal Type Associated Problems Recent Progress Patient-Stated? Author Autogenera louise Goal Care Plan Autogenerated Problem No Ekta Arnett documented as of this encounter Procedures Procedure Name Priority Date/Time Associated Diagnosis Comments PB ANESTHESIA PLACEHOLDER Routine 11/06/2024 10:58 AM EDT TX AN ELECTIVE ENDOTRACHEAL AIRWAY Routine 11/06/2024 10:58 AM EDT documented in this encounter Results * TX AN ELECTIVE ENDOTRACHEAL AIRWAY, PB ANESTHESIA PLACEHOLDER (11/06/2024 10:58 AM EDT) Narrative Asad Lechuga CRNA, DNP - 11/06/2024 10:58 AM EDT Asad Lechuga CRNA, DNP 11/06/2024 11:05 AM Airway Date/Time: 11/06/2024 10:58 AM Reason: elective Airway not difficult General Information and Staff Patient location during procedure: OR CRABBER: Asad Lechuga CRNA, DNP Performed: ISH Patient [...] documented as of this encounter Care Teams Therapist'S Assistant Relationship Specialty Start Date End Date Asad Vcitor MD [address] [place] [address] PCP - General 10/07/22 documented as of this encounter
--- OUTSIDE RECORDS SUMMARY | 2024-11-20 14:15 | XMS_ITS | Encounter Summary ---
Author Organization [employer] ([place], [place], [place], [place]) Address [address] [place] [address] Care Team Providers Care Modeling Agency Manager Name Role Phone Unavailable Primary Care Provider Unavailabl e Reason for Visit * Reason Comments Wound Care Nurse visit for woun d vac change, wound care and dressing change Encounter Details Date Type Department Care Team (Latest Contact Info) Description 11/20/2024 2:15 PM EDT Clinical Support [facility] [address] [place] [address] Non-pressure chronic ulcer of skin of [...] Description 11/22/2024 4:15 PM EDT Clinical Support [facility] 1 [place] [address] 11/27/2024 2:20 PM EDT Office Visit [facility] 1 [place] [address] Jerry Monroe Jr., MD [address] [place] [address] 11/29/2024 4:00 PM EDT Clinical Support [facility] 1 [place] [address] 12/02/2024 2:15 PM EDT Clinical Support [facility] 1 [place] [address] 12/04/2024 3:10 PM EDT Office Visit [facility] 1 [place] [address] Jerry Monroe Jr., MD [address] [place] [address] 12/06/2024 4:15 PM EDT Clinical Support [facility] 1 [place] [address] 12/09/2024 3:30 PM EDT Clinical Support [facility] [place] [facility] 1 [place] [address] 12/11/2024 2:40 PM EDT Office Visit [facility] 1 [place] [address] Jerry Monroe Jr., MD [address] [place] [address] 12/13/2024 3:30 PM EDT Clinical Support [facility] 1 [place] [address] 12/16/2024 3:30 PM EDT Clinical Support [facility] 1 [place] [address] 12/18/2024 3:00 PM EDT Office Visit [facility] 1 [place] [address] Jerry Monroe Jr., MD [address] [place] [address] 12/20/2024 3:30 PM EDT Clinical Support [facility] 1 [place] [address] documented as of this encounter Visit Diagnoses Diagnosis 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
--- OUTSIDE RECORDS SUMMARY | 2024-11-22 08:16 | XMS_ITS | Encounter Summary ---
Author Organization Healthcare Address [address] [place] [address] Care Team Providers Care Roll Trucker Name Role Phone Asad Victor MD Primary Care Provider + [phone] Encounter Details Date Type Department Care Team (Late st Contact Info) Description 09/20/2024 Orders Only External Location [address] [place] [address] Timothy Marques PA [address] [place] [address] Social History Tobacco Use Types Packs/Day Years [...] drink first t dino in the morning (EYE-SOLUTION ANALYST) to steady your nerves or to [...] 2:00 PM EDT Hospital Encounter [facility] [address] [facility] 5th Floor [address] [place] [address] 11/26/2024 2:30 PM EDT Hospital Encounter [facility] [address] [facility] 5th Floor [address], [address] [place] [address] 11/26/2024 3:20 PM EDT Office Visit [facility] [address] [facility] 5th Floor [address] [place] [address] Elisabet Schuster, PA [address] [facility] [address] [place] [address] 11/29/2024 2:30 PM EDT Office Visit [facility] [address] [place] [address] Oscar Appiah MD [address] [facility] [address] [place] [address] documented as of this encounter Procedures Procedure [...] documented as of this encounter Care Teams Roll Trucker Relationship Specialty Start Date End Date Asad Victor MD [address] [place] [address] PCP - General 10/07/22 documented as of this encounter
--- OUTSIDE RECORDS SUMMARY | 2024-11-22 08:16 | XMS_ITS | Encounter Summary ---
Author Organization Healthcare Address [address] [place] [address] Care Team Providers Care Chair Lift Operator Name Role Phone Asad Victor MD Primary Care Provider + [phone] Encounter Details Date Type Department Care Team (Late st Contact Info) Description 09/21/2024 Orders Only External Location [address] [place] [address] Provider, External Social History Tobacco Use Types [...] drink first t dino in the morning (EYE-PLAYGROUND SUPERVISOR) to steady your nerves or to [...] Description 11/26/2024 2:00 PM EDT Hospital Encounter [facility] Lab [address] [place] [address] 11/26/2024 2:30 PM EDT Hospital Encounter [facility] [address] [place] [address] 11/26/2024 3:20 PM EDT Office Visit [facility] [address] [facility] 5th Floor [address] [place] [address] Elisabet Schuster PA [address] [facility] [address] [place] [address] 11/29/2024 2:30 PM EDT Office Visit [facility] [address] [place] [address] [place] [address] [place] [address] [address] [place] [address] documented as of this encounter [...] documented as of this encounter Care Teams Chair Lift Operator Relationship Specialty Start Date End Date Asad Victor MD [address] [place] [address] PCP - General 10/07/22 documented as of this encounter
[2024-11-22] MEDS: MICAFUNGIN SODIUM IV (08:17)
[2024-11-22] MEDS: SODIUM CHLORIDE 0.9% IV (08:17)
--- OUTSIDE RECORDS SUMMARY | 2024-11-22 08:18 | XMS_ITS | Encounter Summary ---
Author Organization Healthcare Address [address] [place] [address] Care Team Providers Care Tiltrotor Crew Chief Name Role Phone Asad Victor MD Primary Care Provider + [phone] Encounter Details Date Type Department Care Team (Late st Contact Info) Description 09/20/2024 Orders Only External Location [address] [place] [address] Timothy Marques PA [address] [place] [address] Social History Tobacco Use Types Packs/Day Years [...] drink first t dino in the morning (EYE-RESPIRATORY MEDICINE PHYSICIAN) to steady your nerves or to get [...] [facility] [address] [facility] 5th Floor [address] [place] [address] 11/26/2024 2:30 PM EDT Hospital Encounter [facility] Lab [address] [facility] 5th Floor [address] [place] [phone] 11/26/2024 3:20 PM EDT Office Visit [facility] [address] [facility] 5th Floor [address] [place] [address] Elisabet Schuster, PA [address] [facility] [address] [place] [address] 11/29/2024 2:30 PM EDT Office Visit [facility] [address] [place] [address] Oscar Appiah MD [address] [facility] [address] [place] [address] documented as of this encounter Procedures Procedure [...] documented as of this encounter Care Teams Tiltrotor Crew Chief Relationship Specialty Start Date End Date Asad Victor MD [address] [place] [address] PCP - General 10/07/22 documented as of this encounter
[2024-11-22 08:20] VITALS: BP 124/42; PULSE 64; RESP 18; TEMP 36.8; O2SAT 97
--- OUTSIDE RECORDS SUMMARY | 2024-11-22 08:26 | XMS_ITS | Encounter Summary ---
Author Organization [facility] Address [address] [place] [address] Care Team Providers Care Crop Consultant Name Role Phone Asad Victor MD Primary Care Provider + [phone] Encounter Details Date Type Department Care Team [...] drink first t dino in the morning (EYE-DIAMOND POLISHER) to steady your nerves or to get [...] [facility] [address] 5th [address] [place] [address] 11/26/2024 2:30 PM EDT Hospital Encounter [facility] Vascular Lab [address] 5[address] [place] [address] 11/26/2024 3:20 PM EDT Office Visit [facility] [address] 5[address] [place] [address] Elisabet Schuster, PA [address] [place] [address] 11/29/2024 2:30 PM EDT Office Visit [facility] [address] [facility] [place] [address] Oscar Appiah MD [address] [facility] [address] [place] [address] documented as of this encounter [...] documented as of this encounter Care Teams Crop Consultant Relationship Specialty Start Date End Date Asad Victor MD [address] [place] [address] PCP - General 10/07/22 documented as of this encounter
--- OUTSIDE RECORDS SUMMARY | 2024-11-22 08:27 | XMS_ITS | Encounter Summary ---
Author Organization Healthcare Address [address] [id number] Care Team Providers Care Emergency Response Technician Name Role Phone Asad Victor MD Primary Care Provider + [phone] Reason for Visit * Reason Onset Date Comments [facility] Clinical Concern/Question 11/15/2024 Encounter Details Date Type Department Care Team (Late st Contact Info) Description 11/15/2024 Telephone [facility] [address] [facility] 5th Floor [address] [place] [address] Nathaly Nowak MD [address] [facility] [address] [place] [address] [facility] Clinical Concern/Question Social History [...] drink first t dino in the morning (EYE-ROTARY DRILLER HELPER) to steady your nerves or to [...] with info. Thank you Best contact number: [phone] (mobile) Optimal time of day to reach caller: ANYTIME Additional comments/information from caller: None Note: Please do not reply to this message. Follow-up communication and further actions as a result of this message need to be communicated with the patient directly, if the patient is not active onMyChart. If the patient is active on MyChart, they will receive notification of the communication/outcome via [employer]. documented in this encounter Plan of Treatment Upcoming Encounters Date Type Department Care Team (Late st Contact Info) Description 11/26/2024 2:00 PM EDT Hospital Encounter [facility] V[facility] Lab [address] [place] [address] 11/26/2024 2:30 PM EDT Hospital Encounter [facility] [address] [place] [address] 11/26/2024 3:20 PM EDT Office Visit [facility] [address] [facility] 5th Floor [address] [place] [address] Elisabet Schuster PA [address] [facility] [address] [place] [address] 11/29/2024 2:30 PM EDT Office Visit [facility] [address] [place] [address] Oscar Appiah MD [address] [facility] [address] [place] [address] documented as of this encounter Goals Goal [...] documented as of this encounter Care Teams Emergency Response Technician Relationship Specialty Start Date End Date Asad Victor MD [address] [place] [address] PCP - General 10/07/22 documented as of this encounter
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
--- OUTSIDE RECORDS SUMMARY | 2024-11-22 08:29 | XMS_ITS | Encounter Summary ---
Author Organization [facility] Address [address] [place] [address] Care Team Providers Care Chisel Grinder Name Role Phone Asad Victor MD Primary Care Provider + [phone] Encounter Details Date Type Department Care Team [...] drink first t dino in the morning (EYE-X RAY TECHNICIAN) to steady your nerves or to [...] [facility] [address] Floor [address] [place] [address] 11/26/2024 2:30 PM EDT Hospital Encounter [facility] [address] Floor [address] [place] [address] 11/26/2024 3:20 PM EDT Office Visit [facility] [address] Floor [address] [place] [address] Elisabet Schuster, PA [address] [place] [address] 11/29/2024 2:30 PM EDT Office Visit [facility] [address] [facility] [place] [address] Oscar Appiah MD [address] [place] [address] documented as of this encounter [...] documented as of this encounter Care Teams Chisel Grinder Relationship Specialty Start Date End Date Asad Victor MD [address] [place] [address] PCP - General 10/07/22 documented as of this encounter
--- OUTSIDE RECORDS SUMMARY | 2024-11-22 08:29 | XMS_ITS | Encounter Summary ---
Author Organization Healthcare Address [address] [id number] Care Team Providers Care Spool Hauler Name Role Phone Asad Victor MD Primary Care Provider + [phone] Encounter Details Date Type Department Care Team (Late st Contact Info) Description 10/22/2024 Telephone Vascular Surgery [address] [place] [address] Alison Beltrán, JOSS HOUSE KEEPER, DNP [address] [facility] [address] [place] [address] Social History Tobacco Use Types Packs/Day Years [...] drink first t dino in the morning (EYE-SHANK SORTER) to steady your nerves or to [...] Notes * Telephone Encounter - Alison Beltrán, JOSS HOUSE KEEPER, DNP - 10/22/2024 11:39 AM EDT Returned patient call. Patient s/p left common/superficial/profunda femoral thromboendarterectomy with bovine patch repair and left external iliac artery/SENIOR ACCOUNT REPRESENTATIVE stent with Dr Gautam on 10/17/24. Patient [...] [facility] [address] [place] [address] 11/26/2024 2:30 PM EDT Hospital Encounter [facility] [address] [place] [address] 11/26/2024 3:20 PM EDT Office Visit [facility] [address] Wing [address], [address] [place] [address] Elisabet Schuster, GLENDA [address] [facility] [address] [place] [address] 11/29/2024 2:30 PM EDT Office Visit [facility] [address] [place] [address] Oscar Appiah MD [address] [facility] [address] [place] [address] documented as of this encounter [...] documented as of this encounter Care Teams Spool Hauler Relationship Specialty Start Date End Date Asad Victor MD [address] [place] [address] PCP - General 10/07/22 documented as of this encounter
--- OUTSIDE RECORDS SUMMARY | 2024-11-22 08:30 | XMS_ITS | Encounter Summary ---
Author Organization Healthcare Address [address] [place] [address] Care Team Providers Care Seeing Eye Dog Teacher Name Role Phone Asad Victor MD Primary Care Provider + [phone] Encounter Details Date Type Department Care Team (Late st Contact Info) Description 10/17/2024 Orders Only External Location [address] [place] [address] Provider, External Social History Tobacco Use Types [...] drink first t dino in the morning (EYE-TIRE MOLD ENGRAVER) to steady your nerves or to get rid of a hangover? 0 10/18/2021 CAGE Questionnaire Score 0 022 Utilities Answer Date Recorded In the past 12 months has th e [employer], gas, oil, or water [employer] threatened to shut off services in your [...] Medical Facility 5th Floor Wing [address], [address] [place] [address] 11/26/2024 2:30 PM EDT Hospital Encounter [facility] Vascular Lab [address] [facility] 5th Floor Wing D, [address] [place] [address] 11/26/2024 3:20 PM EDT Office Visit [facility] [address] [facility] 5th Floor Wing D[address] [place] [address] Elisabet Schuster PA [address] [place] [address] 11/29/2024 2:30 PM EDT Office Visit [facility] [address] [place] [address] Oscar Appiah MD [address] [facility] [address] [place] [address] documented as of this encounter [...] documented as of this encounter Care Teams Seeing Eye Dog Teacher Relationship Specialty Start Date End Date Asad Victor MD [address] [place] [address] PCP - General 10/07/22 documented as of this encounter
--- OUTSIDE RECORDS SUMMARY | 2024-11-22 08:30 | XMS_ITS | Encounter Summary ---
Author Organization [facility] Address [address] [place] [address] Care Team Providers Care Heel Coverer Machine Operator Name Role Phone Asad Victor MD Primary Care Provider + [phone] Encounter Details Date Type Department Care Team [...] in the past 12 m [facility], were you homeless or living in a [...] drink first t dino in the morning (EYE-DRYING FRAME OPERATOR) to steady your nerves or to [...] [facility] [address] Floor [address] [place] [address] 11/26/2024 2:30 PM EDT Hospital Encounter [facility] Lab [address] 5th Floor Wing [address] [place] [address] 11/26/2024 3:20 PM EDT [facility] [address]th Floor [address] [place] [address] Elisabet Schuster, PA [address] [facility] [address] [place] [address] 11/29/2024 2:30 PM EDT Office Visit [facility] [address] [facility] [place] [address] Oscar Appiah MD [address] [facility] [address] [place] [address] documented as of this encounter [...] documented as of this encounter Care Teams Heel Coverer Machine Operator Relationship Specialty Start Date End Date Asad Victor MD [address] [place] [address] PCP - General 10/07/22 documented as of this encounter
--- OUTSIDE RECORDS SUMMARY | 2024-11-22 08:32 | XMS_ITS | Encounter Summary ---
Author Organization [employer] ([place], [place], [place], [place]) Address [address] [place] [address] Care Team Providers Care Radiology Teacher Name Role Phone Unavailable Primary Care Provider [...] Description 11/22/2024 4:15 PM EDT Clinical Support [facility] [place] 1 [place] [address] 11/27/2024 2:20 PM EDT Office Visit [facility] 1 [place] [address] Jerry Monroe Jr., MD [address] [place] [address] 11/29/2024 4:00 PM EDT Clinical Support [facility] [address] [address] 12/02/2024 2:15 PM EDT Clinical Support [facility] [place] 1 [place] [address] 12/04/2024 3:10 PM EDT Office Visit [address] [address] Jerry Monroe Jr., MD [address] [place] [address] 12/06/2024 4:15 PM EDT Clinical Support [facility] [place] 1 [place] [address] 12/09/2024 3:30 PM EDT Clinical Support [facility] 1 [place] [address] 12/11/2024 2:40 PM EDT Office Visit [facility] 1 [place] [address] Jerry Monroe Jr., MD [address] [place] [address] 12/13/2024 3:30 PM EDT Clinical Support [facility] 1 [place] [address] 12/16/2024 3:30 PM EDT Clinical Support [facility] 1 [place] [address] 12/18/2024 3:00 PM EDT Office Visit [facility] 1 [place] [address] Jerry Monroe Jr., MD [address] [place] [address] 12/20/2024 3:30 PM EDT Clinical Support [facility] 1 [place] [address] documented as of this encounter Visit Diagnoses Not on filedocumented in this encounter
--- OUTSIDE RECORDS SUMMARY | 2024-11-22 08:32 | XMS_ITS | Referral Summary ---
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) 11/18/2024 Travel 11/18/2024 1:10 PM EDT Office Visit [facility] [place] 1 [place] [address] Jerry Monroe Jr., MD Non-pressure [...] Description 11/22/2024 4:15 PM EDT Clinical Support [facility] [place] 1 [place] [address] 11/27/2024 2:20 PM EDT Office Visit [facility] [place] 1 [place] [address] Jerry Monroe Jr., MD [address] [place] [address] 11/29/2024 4:00 PM EDT Clinical Support [facility] [place] 1 [place] [address] 12/02/2024 2:15 PM EDT Clinical Support [facility] [place] 1 [place] [address] 12/04/2024 3:10 PM EDT Office Visit [facility] 1 [place] [address] Jeryr Monroe Jr., MD [address] [place] [address] 12/06/2024 4:15 PM EDT Clinical Support [facility] 1 [place] [address] 12/09/2024 3:30 PM EDT Clinical Support [facility] [place] 1 [place] [address] 12/11/2024 2:40 PM EDT Office Visit [facility] [place] 1 [place] [address] Jerry Monroe Jr., MD [address] [place] [address] 12/13/2024 3:30 PM EDT Clinical Support [facility] [place] 1 [place] [address] 12/16/2024 3:30 PM EDT Clinical Support [facility] [place] 1 [place] [address] 12/18/2024 3:00 PM EDT Office Visit [facility] 1 [place] [address] Jerry Monroe Jr., MD [address] [place] [address] 12/20/2024 3:30 PM EDT Clinical Support [facility] 1 [place] [address] Procedures Procedure Name Priority Date/Time Associated Diagnosis [...] tissue from Last 3 Months Results * MD DEBRIDEMENT MUSCLE &/FASCIA 1ST [...] provider verified the correct patient, procedure, equipment, child support case officer, and site/side marked as required. Debridement Details [...] 20 SQ CM (11/18/2024 1:10 PM EDT) Narrative Jerry Monroe Jr., MD - 11/18/2024 1:10 PM EDT [...] provider verified the correct patient, procedure, equipment, child support case officer, and site/side marked as required. Debridement Details [...] Final Result from Last 3 Months Insurance [facility] ADV DUAL COMPLETE [place]
--- OUTSIDE RECORDS SUMMARY | 2024-11-22 08:33 | XMS_ITS | Encounter Summary ---
Author Organization [facility] Address [address] [place] [address] Care Team Providers Care Psychologist Engineering Name Role Phone Asad Victor MD Primary Care Provider + [phone] Encounter Details Date Type Department Care Team [...] drink first t dino in the morning (EYE-DIAPER FOLDER) to steady your nerves or to get [...] Description 11/26/2024 2:00 PM EDT Hospital Encounter [facility] Vascular Lab [address], [address] [place] [address] 11/26/2024 2:30 PM EDT Hospital Encounter [facility] Vascular Lab [address] [place] [address] 11/26/2024 3:20 PM EDT Office Visit [facility] [address] [facility] 5th Floor Wing D, [address] [place] [address] Elisabet Schuster, PA [address] [address] [place] [address] 11/29/2024 2:30 PM EDT Office Visit [address] [place] [address] Oscar Appiah MD [address] [place] [address] [address] [place] [address] documented as of this encounter [...] documented as of this encounter Care Teams Psychologist Engineering Relationship Specialty Start Date End Date Asad Victor MD [address] [place] [address] PCP - General 10/07/22 documented as of this encounter
--- OUTSIDE RECORDS SUMMARY | 2024-11-22 08:33 | XMS_ITS | Encounter Summary ---
Author Organization Healthcare Address [address] [place] [address] Care Team Providers Care Form Grader Name Role Phone Asad Victor MD Primary Care Provider + [phone] Encounter Details Date Type Department Care Team (Late st Contact Info) Description 11/05/2024 Orders Only External Location [address] [place] [address] Provider, External Social History Tobacco Use Types [...] drink first t dino in the morning (EYE-EXPORT COORDINATOR) to steady your nerves or to get rid of a hangover? 0 10/18/2021 CAGE Questionnaire Score 0 022 Utilities Answer Date Recorded In the past 12 months has th e [employer], gas, oil, or water company threatened to [...] Description 11/26/2024 2:00 PM EDT Hospital Encounter [facility] Vascular Lab [address] [facility] 5th Floor Wing D, [address] [place] [address] 11/26/2024 2:30 PM EDT Hospital Encounter [facility] Vascular Lab [address] [facility] 5th Floor Wing D, [address] [place] [address] 11/26/2024 3:20 PM EDT Office Visit [facility] [address] 5th Floor [address] [place] [address] Elisabet Schuster PA [address] [place] [address] [place] [address] 11/29/2024 2:30 PM EDT Office Visit [facility] [address] [place] [address] Oscar Appiah MD [address] [facility] [address] [place] [address] documented as of this encounter [...] documented as of this encounter Care Teams Form Grader Relationship Specialty Start Date End Date Asad Victor MD [address] [place] [address] PCP - General 10/07/22 documented as of this encounter
--- OUTSIDE RECORDS SUMMARY | 2024-11-22 08:35 | XMS_ITS | Encounter Summary ---
Author Organization Healthcare Address [address] [place] [address] Care Team Providers Care Timber Feller Name Role Phone Asad Victor MD Primary Care Provider + [phone] Encounter Details Date Type Department Care Team (Late st Contact Info) Description 11/15/2024 Clinical Support [address] [place] [address] Charly Orlando, PharmD [address] [place] [address] [address] [place] [address] Social History Tobacco Use Types [...] in the past 12 m [facility], were you homeless or living in a [...] drink first t dino in the morning (EYE-SHEAR GRINDER OPERATOR) to steady your nerves or to get rid of a hangover? 0 10/18/2021 CAGE Questionnaire Score 0 022 Utilities Answer Date Recorded In the past 12 months has th e [employer] gas, oil, or water company threatened to [...] [facility] Vascular Lab [address] 5th Floor Wing [address] [place] [address] 11/26/2024 2:30 PM EDT Hospital Encounter [facility] Lab [address] 5th Floor Wing [address] [place] [address] 11/26/2024 3:20 PM EDT Office Visit [facility] [address] 5th Floor Wing [address] [place] [address] Elisabet Schuster PA [address] [place] [address] 11/29/2024 2:30 PM EDT Office Visit [facility] [address] [facility] [place] [address] Oscar Appiah MD [address] [facility] [address] [place] [address] documented as of this encounter [...] documented as of this encounter Care Teams Timber Feller Relationship Specialty Start Date End Date Asad Victor MD [address] [place] [address] PCP - General 10/07/22 documented as of this encounter
--- OUTSIDE RECORDS SUMMARY | 2024-11-22 08:36 | XMS_ITS | Encounter Summary ---
Author Organization [employer] ([place], [place], [place], [place]) Address [address] [place] [address] Care Team Providers Care Main Entree Cook And Cashier Name Role Phone Unavailable Primary Care Provider [...] Description 11/22/2024 4:15 PM EDT Clinical Support [facility] [place] 1 [place] [address] 11/27/2024 2:20 PM EDT Office Visit [facility] 1 [place] [address] Jerry Monroe Jr., MD [address] [place] [address] 11/29/2024 4:00 PM EDT Clinical Support [facility] [address] [address] 12/02/2024 2:15 PM EDT Clinical Support [facility] [place] 1 [place] [address] 12/04/2024 3:10 PM EDT Office Visit [address] [address] Jerry Monroe Jr., MD [address] [place] [address] 12/06/2024 4:15 PM EDT Clinical Support [facility] [place] 1 [place] [address] 12/09/2024 3:30 PM EDT Clinical Support [facility] 1 [place] [address] 12/11/2024 2:40 PM EDT Office Visit [facility] 1 [place] [address] Jerry Monroe Jr., MD [address] [place] [address] 12/13/2024 3:30 PM EDT Clinical Support [facility] 1 [place] [address] 12/16/2024 3:30 PM EDT Clinical Support [facility] 1 [place] [address] 12/18/2024 3:00 PM EDT Office Visit [facility] 1 [place] [address] Jerry Monroe Jr., MD [address] [place] [address] 12/20/2024 3:30 PM EDT Clinical Support [facility] 1 [place] [address] documented as of this encounter Visit Diagnoses Not on filedocumented in this encounter
[2024-11-22 09:20] VITALS: BP 144/64; PULSE 69
[2024-11-22 09:40] VITALS: BP 136/74; PULSE 71
[2024-11-22] MEDS: ERTAPENEM SODIUM 1 GM in 0.9 % SODIUM CHLORIDE 50 ML IV (09:40)
[2024-11-22 10:10] VITALS: BP 133/64; PULSE 68
== END 2024-11-22 10:33 | disposition home or self-care (01) ==
LOC: INF 08:05
PROVIDERS: PCP Family Medicine
DX: E10.69 Type 1 diabetes mellitus with other specified complication (principal); E78.2 Mixed hyperlipidemia
CPT/HCPCS: 96365; 96367; J1335; J2248

== ENCOUNTER 2024-11-23 07:46 | Outpatient (CLI) | payer MEDICARE, OTHER, SELFPAY ==
--- OUTSIDE RECORDS SUMMARY | 2024-10-11 10:15 | XMS_ITS | Encounter Summary ---
Author Organization [facility] Address [address] [place] [address] Care Team Providers Care Operation Shift Supervisor Name Role Phone Asad Victor MD Primary Care Provider + [phone] Encounter Details Date Type Department Care Team (Latest Contact Info) Description 10/11/2024 10:15 AM EDT Pre-Admission Testing [facility] [address], [address] [place] [phone] Preop testing (Primary Dx) Anesthesia Record Procedure [...] Hand; Site Prep: Chlorhexidine ; Local Anesth: [place]; Technique: Anatomical landmarks; Inserted by: CHRISTIAN Acuna; [...] G; Orientation: Right; Location: Axillary; Inserted by: HOCKEY SCOUT; Securement: Sutured; Patient Tolerance: Tolerated well; Removal [...] drink first t dino in the morning (EYE-COMMERCIAL LOAN OFFICER) to steady your nerves or to get [...] note 09/25/24 (media) + CAD s/p multiple WI's and 3V CABG 02/2019, 2 stents prior to CABG Atrial Fibrillation with RVR s/p CABG + carotid artery disease s/p R CEA 2016 + 3rd degree AV block CLOTH HAND-P placed 08/2023 for Wenkeback with 11 sec pause + HLD + HTN - controlled + PAD 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 S/P intravascular lithotripsy of left common and external iliac artery with 2 continuous balloon mounted bare metal stents 09/12/24 on Xarelto and ASA + WILHELM occ, low energy for > year - had work-up recently in [place] (will get records) + peripheral edema LLE [...] ENDARTERECTOMY N/A 2017 Endarterectomy Carotid Artery from [facility] CORONARY ANGIOPLASTY Left Coronary Angiography With Concomitant Left Heart Catheterization from [facility] CORONARY ARTERY BYPASS GRAFT N/A 2018 3V ELBOW SURGERY Right OTHER SURGICAL HISTORY N/A Reported Prior Surgical / Procedural History from [facility] [5] No Known Allergies [6] Current Outpatient [...] card, photo ID, along with power of finance attorney, guardianship or advanced directives if applicable [...] [facility] [address] [place] [address] 11/26/2024 2:30 PM EDT Hospital Encounter [facility] [address] [place] [address] 11/26/2024 3:20 PM EDT Office Visit [facility] [address] [place] [address] Elisabet Schuster PA [address] [place] [address] 11/29/2024 2:30 PM EDT Office Visit [facility] [address] [place] [address] Oscar Appiah MD [address] [facility] [address] [place] [address] documented as of this encounter [...] Modality Other Narrative 10/17/2024 9:50 AM EDT [facility]: Pre-operative CIED Report Assessment and Sara-Procedural Reommendations: Name: Mono Bobby Date: 10/17/2024 : 1960 Age: 64 y.o. Patient has a Test Cell Technician: Berger CLOTH HAND-PM Remaining battery longevity adequate. Lead integrity test [...] recommendations. Supporting reports can be found in [employer] file. us Emelina DOSHI CV IMPLANTABLE CARDIAC [...] documented as of this encounter Care Teams Operation Shift Supervisor Relationship Specialty Start Date End Date Asad Victor MD [address] [place] [address] PCP - General 10/07/22 documented as of this encounter
--- OUTSIDE RECORDS SUMMARY | 2024-10-16 14:45 | XMS_ITS | Encounter Summary ---
Author Organization Healthcare Address [address] [place] [address] Care Team Providers Care Mash Filter Press Operator Name Role Phone Asad Victor MD Primary Care Provider + [phone] Encounter Details Date Type Department Care Team (Latest Contact Info) Description 10/16/2024 2:45 PM EDT - 10/16/2024 11:59 PM EDT Hospital Encounter Cardiac Imaging [address] [place] [address] Discharge Disposition: Home or Self Care Social [...] drink first t dino in the morning (EYE-SR. MERCHANDISE PLANNER) to steady your nerves or to get [...] Description 11/26/2024 2:00 PM EDT Hospital Encounter [facility] [address] [place] [address] 11/26/2024 2:30 PM EDT Hospital Encounter [facility] [address] [place] [address] 11/26/2024 3:20 PM EDT Office Visit [facility] [address] [place] [address] Elisabet Schuster, GLENDA [address] [facility] [address] [place] [address] 11/29/2024 2:30 PM EDT Office Visit [place] [address] [place] [address] Oscar Appiah MD [address] [facility] [address] [place] [address] documented as of this encounter Goals Goal [...] Modality Other Narrative 10/17/2024 9:50 AM EDT [facility]: Pre-operative CIED Report Assessment and Sara-Procedural Reommendations: Name: Mono Bobby Date: 10/17/2024 : 1960 Age: 64 y.o. Patient has a Hearing Aid Dispenser: Berger ELECTRO MECHANICAL TECHNICIAN-PM Remaining battery longevity adequate. Lead integrity [...] recommendations. Supporting reports can be found in [employer] media file. 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
--- OUTSIDE RECORDS SUMMARY | 2024-10-17 06:21 | XMS_ITS | Encounter Summary ---
Author Organization [facility] Address [address] [id number] Care Team Providers Care Rehab Assistant Name Role Phone Asad Victor MD Primary Care Provider [phone] Reason for Referral * Imaging (Routine) - Authorized Specialty Diagnoses / Procedures Referred By Susan t Referred To Contact Cardiology Diagnoses Critical limb ischemia of left lower extremity Pseudoaneurysm of left femoral artery (CMS/HCC) Procedures VAS US Arterial Duplex Lower Extremity Unilateral Left Terrell Gautam MD [address] [address] Phone: tel: fax: Referral ID Status Reason Start Date Expiration Date Visits Requested Visits Authorized [id number] Authorized Perform Procedure 10/19/2024 04/20/2026 1 1 * Imaging (Routine) - Authorized Specialty Diagnoses / Procedures Referred By Contac t Referred To Contact Cardiology Diagnoses Critical limb ischemia of left lower extremity Pseudoaneurysm of left femoral artery (CMS/HCC) Procedures VAS Ankle Brachial Index - Segmental Terrell Gautam MD [id number] [place] [address] Phone: tel: fax: Referral ID Status Reason Start Date Expiration Date Visits Requested Visits Authorized [id number] Authorized Perform Procedure 10/19/2024 04/20/2026 1 1 * Consultation (Routine) - Authorized Specialty Diagnoses / Procedures Referred By Contact Referred To Contact Vascular Surgery / [facility] Diagnoses Critical limb ischemia of left lower extremity Pseudoaneurysm of left femoral artery (CMS/HCC) Terrell Gautam MD [address] [place] [address] Phone: tel:[phone] fax:[phone] [facility] [address] [place] [address] 5th Floor [address] [place] [address] Phone: tel: fax: Referral ID Status Reason Start Date Expiration Date Visits Requested Visits Authorized [id number] Authorized Specialty Services Required 10/19/2024 04/20/2026 [address] Gautam, with SIL, arterial duplex Reason for Visit * Auth/Cert (Routine) Specialty Diagnoses / Procedures Referred By Susan t Referred To Contact Diagnoses Critical limb ischemia of left lower extremity Critical limb ischemia of left lower extremity [I70.222] Procedures OK VEIN BYPASS GRAFT,FEM-POP CREATION, BYPASS, ARTERIAL, FEMORAL TO POPLITEAL Terrell Gautam MD [address] [place] [address] Phone: tel: fax: [facility] A OPERATING ROOM [address] [place] [address] Phone: tel: Referral ID Status Reason Start Date Expiration Date Visits Re quested Visits Authorized [id number] 1 1 Encounter Details Date Type Department Care Team (Latest Contact Info) Description 10/17/2024 6:21 AM EDT - 10/19/2024 12:39 PM EDT Hospital Encounter [facility] H Inpatient [address] [place] [id number] Terrell Gautam MD [address] [place] [address] Pseudoaneurysm of left femoral artery (CMS/HCC) [...] any time in the past 12 m [facility], were you homeless or living in a fci (including now)? No 10/18/2024 CAGE ASSESSMENT Answer [...] drink first t dino in the morning (EYE-CHEMICAL DEPENDENCY PROFESSIONAL) to steady your nerves or to get rid of a hangover? 0 10/18/2021 CAGE Questionnaire Score 0 022 Utilities Answer Date Recorded In the past 12 months has th Crude Area, gas, oil, or water [employer] threatened to shut off services in your [...] by Keyla Chow Outcome: Met Flowsheets Taken 10/19/2024 114 Progress: improving Taken 10/19/2024 1048 Plan of Care Reviewed With: patient 10/19/2024 1048 by Keyla Chow Outcome: Ongoing, Progressing Flowsheets (Taken 10/19/2024 1048) Progress: improving Plan of Care Reviewed With: patient Goal: Patient-Specific Goal (Individualized) 10/19/20241144 by eKyla Chow Outcome: Met 10/19/2024 1048 by Keyla Chow Outcome: Ongoing, Progressing Goal: Absence of Hospital-Acquired Illness or Injury 10/19/2024 1145 by Keyla Chow Outcome: Met 10/19/2024 1048 by Keyla Chow Outcome: Ongoing, Progressing Intervention: Identify and Manage Fall Risk Flowsheets (Taken 10/18/20242029 by Kassie Mao RN) Safety Promotion/Fall Prevention: clutter-free environment maintained fall prevention program maintained Intervention: Prevent and Manage VTE (Venous Thromboembolism) Risk Flowsheets (Taken 10/19/2024 1048) VTE Prevention/Management: bilateral SCDs (sequential compression devices) off education provided patient refused intervention Goal: Optimal Comfort and Wellbeing 10/19/2024 1145 by Keyla Chow Outcome: Met [...] provided Taken 10/17/20242107 by Jourdan Grimes II histology tech Review/Management: medications reviewed Problem: Skin Injury Risk [...] Ongoing, Progressing Intervention: Promote Activity and Functional [place] Flowsheets (Taken 10/19/2024 1048) Self-Care Promotion: BADL personal objects within reach meal set-up provided * Yuni Ramires - Keyla Chow - 10/19/2024 11:45 AM EDT Images from the original note were not included. [id number] After Peripheral Artery Bypass Surgery: In the [...] home. Last Reviewed Date: 2023 00:00:00 ?? [id number] [employer]. All rights reserved. This information is not intended as a substitute for professional medical care. Always follow your healthcare professional's instructions. * Progress Notes - Emelina Friend - 10/19/2024 11:44 AM EDT Case Management Adult Progress Note Bev Bobby 64 y.o. male CSN: [id number] Admission: 10/17/2024 6:21 AM Primary Problem: Critical [...] if any other needs arise. Emelina Friend BUSINESS UNIT MANAGER, WARDROBE COORDINATOR Social Work Case Management * Yuni OviJOSE MANUEL Chow Keyla - 10/19/2024 11:44 AM EDT Images from the original note were not included. [id number] Peripheral Artery Disease (PAD) Peripheral artery disease [...] cause. Last Reviewed Date: 2024 00:00:00 ?? [id number] [employer]. All rights reserved. This information is not intended as a substitute for professional medical care. Always follow your healthcare professional's instructions. * Yuni DiorNAVYA - Keyla Chow - 10/19/2024 11:44 AM EDT Images from the original note were not included. [id number] Leg Artery Emergencies: Critical Limb Ischemia (CLI) [...] appointments. Last Reviewed Date: 2023 00:00:00 ?? 4636-2874 [employer]. All rights reserved. This information is not intended as a substitute for professional medical care. Always follow your healthcare professional's instructions. * Discharge Summary - Dandy Baltazar MD - 10/19/2024 11:31 AM EDT Hospitalization Admit Date/Time: 10/17/2024 6:21 AM Admitting Attending: Terrell Gautam Discharge Date: 10/19/24 Discharge Attending Physician: Nirmal Cueto MD PCP name and Address: Asad Victor MD (Inactive) [address] [place] [address] / [facility] [place] [address] Referring provider name and address: Timothy Marques PA [address] [place] [address] Chief Concern, Brief History of Present Illness, and Hospital Course Bev Bobby is an 64 y.o. 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 He [...] Your Medications These medications were sent to [facility] - [place], [place] - [address], [facility] [address] acetaminophen 500 MG tablet clopidogrel 75 MG [...] of water. 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 He [...] Fall Risk Flowsheets (Taken 10/18/20242029 by Kassie Mao RN) Safety Promotion/Fall Prevention: clutter-free environment maintained [...] provided Taken 10/17/20242107 by Jourdan Grimes II, histology tech Review/Management: medications reviewed Problem: Skin Injury Risk [...] Ongoing, Progressing Intervention: Promote Activity and Functional [place] Flowsheets (Taken 10/19/2024 1048) Self-Care Promotion: BADL [...] evaluation. PARTICIPANTS IN CARE Visitors Present No Poultice Machine Operator (if applicable) PRESENTATION Oxygen Oxygen Therapy: None [...] Level of Mobility Ambulatory- household only Mobility [place] Independent gait with device (rollator) History of [...] numbness in rodney) BED MOBILITY Level of [place] Physical/Non- physical Assist Adaptive Equipment Utilized Rolling/ Turning Scooting/ Bridging Modified independence (anteriorly to EOB) Bed rails Supine to Sit Modified [place] (to the right) (HOB flat) Bed rails Sit to Supine Interventions HOB flat to simulate home environment TRANSFERS Level of [place] Physical/Non- physical Assist Adaptive Equipment Utilized Sit [...] stable surfaces during transitions. AMBULATION Level of [place] Distance Adaptive Equipment Utilized Ambulation Standby assist, [...] Posture: Forward head, Rounded shoulders Level of [place] Balance Support Interventions Static Sit Independent Right [...] RW) STANDARDIZED ASSESSMENTS Standardized Assessments Standardized Assessments: AMPAC 6-Clicks Mobility Assessment AMPAC 6-Clicks Mobility Assessment Difficulty patient has turning [...] 3-5 steps with a railing?: A little [facility] 6-Clicks Mobility Assessment Total : 22 [...] Equipment Recommended: Patient owns appropriate equipment History Bev Bobby is 64 y.o. male admitted [...] evaluation/session. Participants in Care Family/Caregiver Present: No Poultice Machine Operator: Not Applicable Presentation Oxygen Therapy: None (Room [...] Level of Mobility: Ambulatory- household only Mobility [place]: Independent gait with device (rollator) History of [...] Mobility Bed Mobility Exam: Scooting/Bridging Level of [place]: Modified independence (anteriorly to EOB) Assistive Device: Bed rails Bed Mobility Exam: Supine to Sit Level of [place]: Modified [place] (to the right) Physical/Nonphysical Assist: (HOB flat) Assistive Device: Bed rails Transfers Transfer Exam: Sit to stand Level of [place]: Stand-by assist Physical/Nonphysical Assist: Supervision, Verbal Cues, Minimal cues Assistive Device: Walker, rolling Transfer Exam: Stand to Sit Level of [place]: Stand-by assist Physical/Nonphysical Assist: Supervision, Verbal Cues, [...] regarding toileting at this time. Standardized Assessments [facility] 6-Click Daily Activities Help from Other: Don/Doff Regular Lower Body Clothings: None Help From Other: Bathing: Little Help From Other: Toileting: None Help From Other: Don/Doff Upper Body Clothings: None Help From Other: Grooming: None Help From Other: Eating Meals: None [facility] 6 Click - Daily Activities Score: 23/24 [facility] Scoring Interpretation: Scores greater than 20.5 [...] Flowsheets (Taken 10/17/20242107 by Jourdan Grimes II, RN) Medication Review/Management: medications reviewed Problem: Skin Injury [...] Note Bev Bobby 64 y.o. male CSN: [id number] Admission: 10/17/2024 6:21 AM Primary Problem: Critical limb ischemia of left lower extremity Halal Butcher reviewed chart and spoke with patient to complete this Initial Case Management Assessment. PCP: Asad Victor MD (Inactive) - Dr. Palomo Preferred pharmacy is [facility] Emergency Contact: Extended Emergency Contact Information Primary Emergency Contact: Patti Hill Relation: Sister Poultice Machine Operator needed? No Insurance: Primary Visit Coverage Payer Plan Sponsor Code Group Number Group Name [facility] MEDICARE [facility] MEDICARE REPLACEMENT [id number] Primary Visit Coverage Subscriber Subscriber ID Subscriber Name Subscriber N Subscriber Address [id number] BEV BOBBY [id number] [place] [address] Secondary Visit Coverage Payer Plan Sponsor Code Group Number Group Name [facility] Secondary Visit Coverage Subscriber Subscriber ID Subscriber Name Subscriber N Subscriber Address [id number] BEV BOBBY [id number] [place] [address] Patient information: Primary Caregiver: Self Daily Living Activities: Functional Status: Independent Living Arrangements: Alone Type of Residence: Private residence, Single Level [address] [place] [address] Current DME: Equipment Currently Used at Home: walker, rollator Income Information: Income Source: Retired Income/Expense Information: Income meets expenses Current Resources Utilized: Food [place] Housing Circumstances-Z Codes: Housing Circumstances (select all [...] Dialysis Services: None. Living Will/Advance Directive/Power of Universal Grinder Tool /Guardian: Denied. Additional Comments: Patient is not medically ready for discharge. SW will continue to follow. Mariia Macedo WARDROBE COORDINATOR * Care Plan - Emilia Alonso RN [...] from the original note were not included. [facility] Department of Surgery Division of Vascular Surgery [...] 1859 10/17/24 1900 - 10/18/24 0659 10/18/24 0700 - 10/18/24 0725 Requested LDAs do not [...] Agree with above assessment and evaluation from resident/HOME HEALTH CARE PROVIDER. * Op Note - Terrell Gautam MD - 10/17/2024 8:52 AM EDT Operative Note Date: 10/17/24 Location: [facility] Name: Bev Bobby, : 1960, Diagnoses: Pre-op Diagnosis Critical limb ischemia of left lower extremity Common femoral artery pseudoaneurysm Post-op Diagnosis Critical limb ischemia of left lower extremity Common femoral artery pseudoaneurysm Procedure(s): Left common/superficial/profunda femoral thromboendarterectomy with bovine patch repair Left external iliac artery/NURSING EDUCATION SPECIALIST stent Attending Surgeon(s): * Terrell Gautam - Primary Industrial Automation Engineer(s): * Luna Beckett MD - Resident - Assisting * Dandy Baltazar MD - Fellow Savita Villareal DO - Fellow Anesthesia: General ASA: III Blood Administration: Blood Product Administration History None Estimated Blood Loss: 450 mL Drains: [REMOVED] Urethral Catheter Temperature probe 16 Fr. (Removed) Site Assessment Clean;Skin intact 10/18/24799 CAUTI: Collection Container Standard drainage bag;Collection container below bladder and tubing free of kinks 10/18/24799 CAUTI: Securement Method Securing device (Describe) 10/18/24799 CAUTI: Specimen Collection Port Covered with Alcohol Cap Yes 10/18/24799 CAUTI: Urinary Catheter Necessity Yes, meets criteria 10/17/24 190 CAUTI: Urinary Catheter Necessity Reasons Recent surgery contiguous with urinary tract/SUPERVISOR LATHING/colorectal 10/17/24 190 Output (mL) 50 mL 10/18/24 08 Implants Type Name Action Serial No. VASCUGUARD 8 X 8 - [id number] Implanted STENT ENDOPROSTHESIS VIABAHN 9FR [id number] - [id number] Implanted [id number] Specimen: Specimens ID Source Frozen? 1 Other [...] and distal control. We then proceeded with zdgch-nqr-xesh exposure of the popliteal artery. A medial [...] balloon dilated thestent with a 9 mm Moriarty. We closed the arteriotomy with a single [...] 10/17/2024 8:52 AM EDT Date: 10/17/24 Location: [facility] Name: Bev Perez Kanu, : 1960, Diagnoses: Pre-op Diagnosis Critical limb ischemia of left lower extremity Common femoral artery pseudoaneurysm Post-op Diagnosis Critical limb ischemia of left lower extremity Common femoral artery pseudoaneurysm Procedure(s): Left common/superficial/profunda femoral thromboendarterectomy with bovine patch repair Left external iliac artery/NURSING EDUCATION SPECIALIST stent Attending Surgeon(s): * Terrell Gautam - Primary Industrial Automation Engineer(s): * Luna Beckett MD - Resident - Assisting * Dandy Baltazar MD - Fellow Anesthesia: General ASA: III Blood Administration: Blood Product Administration History None Estimated Blood Loss: 300 mL Drains: Urethral Catheter Temperature probe 16 Fr. (Active) Implants Type Name Action Serial No. VASCUGUARD 8 X 8 - [id number] Implanted STENT ENDOPROSTHESIS VIABAHN 9FR [id number] - [id number] Implanted [id number] Specimen: Specimens ID Source Frozen? 1 Other [...] issues. 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 He previouslyunderwent thrombin injection. He reports pain in his calves. He presents today for scheduled left lower extremity femoral to tgthr-snc-qrza popliteal bypass. Planned likely use PTFE. He [...] 16. Results Review {Vanishing Link Review Results :[id number] I have reviewed the latest lab and imaging results. Assessment & Plan Critical limb ischemia of left lower extremity Proceed with scheduled surgery left lower extremity femoral to peuqp-xji-cwio popliteal artery bypass graft. Extensive discussion had [...] [facility] [address] [place] [address] 11/26/2024 2:30 PM EDT Hospital Encounter [facility] [address] [place] [address] 11/26/2024 3:20 PM EDT Office Visit [facility] [address] Floor [address] [place] [address] Elisabet Schuster, GLENDA [address] [facility] [address] [place] [address] 11/29/2024 2:30 PM EDT Office Visit [facility] [address] [place] [phone] Oscar Appiah MD [address] [facility] [address] [place] [address] Pending Results Name Type Priority Associated Diagnoses [...] PREPARE RBC STAT 10/17/2024 8:06 AM EDT OK VEIN BYPASS GRAFT,FEM-POP 10/17/2024 7:38 AM EDT [...] Comment 10/19/2024 11:42 AM EDT HEALTHCARE LAB Hospitalist Medical Director ID KamranJob 10/20/19 11:42 AM EDT HEALTHCARE LAB Device ID [id number] 10/19/2024 11:42 AM EDT [facility] Specimen Type POC Capillary 10/19/2024 11:42 AM EDT [facility] Blood Capillary blood specimen / Unknown 10/19/2024 11:40 AM EDT 10/19/2024 11:42 AM EDT Terrell Gautam MD LAB POINT OF CARE TE ST DOCKED DEVICE UNSOLICITED RESULTS Final Result Performing Organization Address City/State/[facility] Co de Phone Number HEALTHCARE LAB [address] [place] [address] * (ABNORMAL) Protime-INR (10/19/2024 8:25 AM EDT) Prothrombin Time 17.5(H) 12.0 - 14.3 sec LAB COAGULATION METHOD 10/19/2024 9:25 AM EDT [facility] INR 1.4(H) 0.9 - 1.1 LAB COAGULATION METHOD 10/19/2024 9:25 AM EDT [facility] Blood Venous blood specimen / Unknown Venipuncture / Unknown 10/19/2024 8:25 AM EDT 10/19/2024 8:43 AM EDT Narrative [facility] - 10/19/2024 9:25 AM EDT OPTIMAL INR RANGES FOR PATIENT ON ORAL ANTICOAGULANT THERAPY Prevention of venous thromboembolism INR 2.0 to 3.0 In patients with heart disease: Atrial fibrillation INR 2.0 to 3.0 Valvular heart disease INR 2.0 to 3.0 Tissue heart valves INR 2.0 to 3.0 Mechanical prosthetic valves INR 2.5 to 3.5 Prevention of recurrent MD INR 2.5 to 3.5 Nirmal Cueto MD LAB BLOOD [place] [address] * (ABNORMAL) Phosphorus (10/19/2024 8:25 AM EDT) Phosphorus, Plasma 2.2(L) 2.5 - 4.5 mg/dL 10/19/2024 9:12 AM EDT [facility] Blood Venous blood specimen / Unknown Venipuncture / Unknown 10/19/2024 8:25 AM EDT 10/19/2024 8:43 AM EDT Nirmal Cueto MD LAB BLOOD ORDERABLES Final Result Performing Organization Address City/[facility]/ZIP Co de Phone Number [facility] [address] [place] [address] * Magnesium (10/19/2024 8:25 AM EDT) Magnesium, Plasma 2.1 1.9 - 2.4 mg/dL 10/19/2024 9:12 AM EDT [facility] Blood Venous blood specimen / Unknown Venipuncture / Unknown 10/19/2024 8:25 AM EDT 10/19/2024 8:43 AM EDT Nirmal Cueto MD LAB BLOOD ORDERABLES Final Result Performing Organization Address City/[facility]/ZIP Co de Phone Number [facility] [address] [place] [address] * (ABNORMAL) Basic metabolic panel (10/19/2024 8:25 AM EDT) Glucose, Plasma 191(H) 74 - 99 mg/dL 10/19/2024 9:12 AM EDT [facility] BUN, Plasma 18 8 - 23 mg/dL 10/19/2024 9:12 AM EDT [facility] Creatinine, Plasma 0.76 0.70 - 1.20 mg/dL 10/19/2024 9:12 AM EDT [facility] BUN/Creatinine Ratio 24 10/19/2024 9:12 AM EDT [facility] Sodium, Plasma 135(L) 136 - 145 mmol/L 10/19/2024 9:12 AM EDT [facility] Potassium, Plasma 4.1 3.6 - 4.9 mmol/L 10/19/2024 9:12 AM EDT [facility] Chloride, Plasma 104 97 - 107 mmol/L 10/19/2024 9:12 AM EDT [facility] CO2, Plasma 22 22 - 29 mmol/L 10/19/2024 9:12 AM EDT [facility] Anion Gap 9 6 - 16 mmol/L 10/19/2024 9:12 AM EDT [facility] Total Calcium, Plasma 8.4(L) 8.9 - 10.2 mg/dL 10/19/2024 9:12 AM EDT [facility] eGFRcr 99.7 mL/min/1.7 3m*2 10/19/2024 9:12 AM EDT [facility] Comment:Reported eGFRcr in m L/min/1.73m2 is based the CKD-EPI 2020 equation that does not use a race coefficient. Blood Venous blood specimen / Unknown Venipuncture / Unknown 10/19/2024 8:25 AM EDT 10/19/2024 8:43 AM EDT us Nirmal Cueto MD LAB BLOOD ORDERABLES Final Result [facility] [address] [place] [address] * (ABNORMAL) CBC W/O Differential (10/19/2024 8:25 AM EDT) WBC Count 14.10(H) 3.70 - 10.30 10*3/uL LAB HEMATOLOGY METHOD 10/19/2024 8:52 AM EDT [facility] RBC Count 2.61(L) 4.60 - 6.10 10*6/uL LAB HEMATOLOGY METHOD 10/19/2024 8:52 AM EDT [facility] HGB 8.0(L) 13.7 - 17.5 g/dL LAB HEMATOLOGY METHOD 10/19/2024 8:52 AM EDT [facility] HCT 24.3(L) 40.0 - 51.0 % LAB HEMATOLOGY METHOD 10/19/2024 8:52 AM EDT [facility] Platelet Count 318 155 - 369 10*3/uL LAB HEMATOLOGY METHOD 10/19/2024 8:52 AM EDT [facility] MCV 93 79 - 98 fL LAB HEMATOLOGY METHOD 10/19/2024 8:52 AM EDT [facility] MCH 30.7 26.0 - 32.0 pg LAB HEMATOLOGY METHOD 10/19/2024 8:52 AM EDT [facility] MCHC 32.9 30.7 - 35.5 g/dL LAB HEMATOLOGY METHOD 10/19/2024 8:52 AM EDT [facility] RDW 13.4 11.5 - 14.5 % LAB HEMATOLOGY METHOD 10/19/2024 8:52 AM EDT [facility] MPV 9.6 8.8 - 12.5 fL LAB HEMATOLOGY METHOD 10/19/2024 8:52 AM EDT [facility] nRBC 0.0 <=0.0 per 100 WBCs LAB HEMATOLOGY METHOD 10/19/2024 8:52 AM EDT [facility] Blood Venous blood specimen / Unknown Venipuncture / Unknown 10/19/2024 8:25 AM EDT 10/19/2024 8:44 AM EDT us Nirmal Cueto MD LAB BLOOD ORDERABLES Final Result [facility] [address] [place] [address] * (ABNORMAL) POCT glucose meter (10/19/2024 7:35 AM EDT) [facility] POCT Glucose 187(H) 74 - 99 mg/dL [...] for testing. Comment 10/19/2024 7:37 AM EDT HEALTHCARE LAB Hospitalist Medical Director ID Job Andrew 10/20/19 7:37 AM EDT HEALTHCARE LAB Device ID [id number] 10/19/2024 7:37 AM EDT [facility] LAB Specimen Type POC Capillary 10/19/2024 7:37 AM EDT [facility] Blood Capillary blood specimen / Unknown 10/19/2024 7:35 AM EDT 10/19/2024 7:37 AM EDT us Terrell Gautam MD LAB POINT OF CARE TE ST DOCKED DEVICE UNSOLICITED RESULTS Final Result Performing Organization Address City/State/[facility] Co de Phone Number [facility] [address] [place] [address] * (ABNORMAL) POCT glucose meter (10/18/2024 7:22 PM EDT) [facility] POCT Glucose 178(H) 74 - 99 mg/dL [...] 10/18/2024 7:24 PM EDT [facility] Hospitalist Medical Director ID Jovan Mahesh 10/18/2024 7:24 PM EDT [facility] Device ID [id number] 10/18/2024 7:24 PM EDT [facility]ARE LAB Specimen Type POC Capillary 10/18/2024 7:24 PM EDT [facility] Blood Capillary blood specimen / Unknown 10/18/2024 7:22 PM EDT 10/18/2024 7:24 PM EDT us Terrell Gautam MD LAB POINT OF CARE TE ST DOCKED DEVICE UNSOLICITED RESULTS Final Result Performing Organization Address City/[facility]/ZIP Co de Phone Number [facility] [address] [place] [address] * (ABNORMAL) POCT glucose meter (10/18/2024 6:07 [...] Comment 10/18/2024 6:09 PM EDT [facility]ALTH[facility]ARE LAB Hospitalist Medical Director ID David Parks 10/18/2024 6:09 PM EDT [facility]ALTH[facility]ARE LAB Device ID [id number] 10/18/2024 6:09 PM EDT [facility]ALTH[facility]ARE LAB Specimen Type POC Capillary 10/18/2024 6:09 PM EDT [facility] Blood Capillary blood specimen / Unknown 10/18/2024 6:07 PM EDT 10/18/2024 6:09 PM EDT us Terrell Gautam MD LAB POINT OF CARE TE ST DOCKED DEVICE UNSOLICITED RESULTS Final Result [facility] [address] [place] [address] * (ABNORMAL) POCT glucose meter (10/18/2024 11:56 [...] Comment 10/21/2024 7:42 AM EDT [facility]ALTH[facility]ARE LAB Hospitalist Medical Director ID Venessa Marcano 10/21/2024 7:42 AM EDT [facility] Device ID [id number] 10/21/2024 7:42 AM EDT [facility] Specimen Type POC Capillary 10/21/2024 7:42 AM EDT [facility] Blood Capillary blood specimen / Unknown 10/18/2024 11:56 AM EDT 10/21/2024 7:42 AM EDT us Terrell Gautam MD LAB POINT OF CARE TE ST DOCKED DEVICE UNSOLICITED RESULTS Final Result Performing Organization Address City/State/[facility] Co de Phone Number [facility] [address] [place] [address] * (ABNORMAL) POCT glucose meter (10/18/2024 9:24 AM EDT) POCT Glucose 322(H) 74 - 99 mg/dL [...] for testing. Comment 10/21/2024 7:42 AM EDT [facility] Hospitalist Medical Director ID Emilia Alonso 7:42 AM EDT [facility] Device ID [id number] 10/21/2024 7:42 AM EDT [facility]ALTHCARE LAB Specimen Type POC Venous 10/21/2024 7:42 AM EDT [facility] Blood Venous blood specimen / Unknown 10/18/2024 9:24 AM EDT 10/21/2024 7:42 AM EDT us Terrell Gautam MD LAB POINT OF CARE TE ST DOCKED DEVICE UNSOLICITED RESULTS Final Result [facility] [address] [place] [address] * (ABNORMAL) POCT glucose meter (10/18/2024 7:36 AM EDT) Pathologist [facility] POCT Glucose 215(H) 74 - 99 mg/dL [...] for testing. Comment 10/18/2024 7:38 AM EDT [facility] Hospitalist Medical Director ID Kizzy Godfrey 025 7:38 AM EDT HEALTHCARE LAB Device ID [id number] 10/18/2024 7:38 AM EDT [facility] Specimen Type POC Capillary 10/18/2024 7:38 AM EDT [facility] Blood Capillary blood specimen / Unknown 10/18/2024 7:36 AM EDT 10/18/2024 7:38 AM EDT us Terrell Gautam MD LAB POINT OF CARE TE ST DOCKED DEVICE UNSOLICITED RESULTS Final Result [facility] [address] [place] [address] * (ABNORMAL) CBC (10/18/2024 2:09 AM EDT) Pathologist [facility] WBC Count 16.71(H) 3.70 - 10.30 10*3/uL LAB HEMATOLOGY METHOD 10/18/2024 2:33 AM EDT [facility] RBC Count 2.78(L) 4.60 - 6.10 10*6/uL LAB HEMATOLOGY METHOD 10/18/2024 2:33 AM EDT [facility] HGB 8.5(L) 13.7 - 17.5 g/dL LAB HEMATOLOGY METHOD 10/18/2024 2:33 AM EDT [facility] HCT 25.7(L) 40.0 - 51.0 % LAB HEMATOLOGY METHOD 10/18/2024 2:33 AM EDT [facility] Platelet Count 324 155 - 369 10*3/uL LAB HEMATOLOGY METHOD 10/18/2024 2:33 AM EDT [facility] MCV 92 79 - 98 fL LAB HEMATOLOGY METHOD 10/18/2024 2:33 AM EDT [facility] MCH 30.6 26.0 - 32.0 pg LAB HEMATOLOGY METHOD 10/18/2024 2:33 AM EDT [facility] MCHC 33.1 30.7 - 35.5 g/dL LAB HEMATOLOGY METHOD 10/18/2024 2:33 AM EDT [facility] RDW 13.3 11.5 - 14.5 % LAB HEMATOLOGY METHOD 10/18/2024 2:33 AM EDT [facility] MPV 9.4 8.8 - 12.5 fL LAB HEMATOLOGY METHOD 10/18/2024 2:33 AM EDT [facility] nRBC 0.0 <=0.0 per 100 WBCs LAB HEMATOLOGY METHOD 10/18/2024 2:33 AM EDT [facility] Blood Venous blood specimen / Unknown Venipuncture / Unknown 10/18/2024 2:09 AM EDT 10/18/2024 2:25 AM EDT us Nirmal Cueto MD LAB BLOOD ORDERABLES Final Result [facility] [address] [place] [address] * (ABNORMAL) Basic metabolic panel (10/18/2024 2:09 AM EDT) Glucose, Plasma 206(H) 74 - 99 mg/dL 10/18/2024 2:53 AM EDT [facility] BUN, Plasma 24(H) 8 - 23 mg/dL 10/18/2024 2:53 AM EDT [facility] Creatinine, Plasma 1.17 0.70 - 1.20 mg/dL 10/18/2024 2:53 AM EDT [facility] BUN/Creatinine Ratio 21 10/18/2024 2:53 AM EDT [facility] Sodium, Plasma 136 136 - 145 mmol/L 10/18/2024 2:53 AM EDT [facility] Potassium, Plasma 4.8 3.6 - 4.9 mmol/L 10/18/2024 2:53 AM EDT [facility] Chloride, Plasma 104 97 - 107 mmol/L 10/18/2024 2:53 AM EDT [facility] CO2, Plasma 22 22 - 29 mmol/L 10/18/2024 2:53 AM EDT [facility] Anion Gap 10 6 - 16 mmol/L 10/18/2024 2:53 AM EDT [facility] Total Calcium, Plasma 8.5(L) 8.9 - 10.2 mg/dL 10/18/2024 2:53 AM EDT [facility] eGFRcr 69.2 mL/min/1.7 3m*2 10/18/2024 2:53 AM EDT [facility] Comment:Reported eGFRcr in m L/min/1.73m2 is based the CKD-EPI 2020 equation that does not use a race coefficient. Blood Venous blood specimen / Unknown Venipuncture / Unknown 10/18/2024 2:09 AM EDT 10/18/2024 2:25 AM EDT Nirmal Cueto MD LAB BLOOD ORDERABLES Final Result [facility] [address] [place] [address] * (ABNORMAL) Magnesium (10/18/2024 2:09 AM EDT) Magnesium, Plasma 1.8(L) 1.9 - 2.4 mg/dL 10/18/2024 2:53 AM EDT [facility] Blood Venous blood specimen / Unknown Venipuncture / Unknown 10/18/2024 2:09 AM EDT 10/18/2024 2:25 AM EDT us Nirmal Cueto MD LAB BLOOD ORDERABLES Final Result [facility] [address] [place] [address] * Phosphorus (10/18/2024 2:09 AM EDT) Phosphorus, Plasma 3.7 2.5 - 4.5 mg/dL 10/18/2024 2:53 AM EDT [facility] Blood Venous blood specimen / Unknown Venipuncture / Unknown 10/18/2024 2:09 AM EDT 10/18/2024 2:25 AM EDT Nirmal Cueto MD LAB BLOOD ORDERABLES Final Result Performing Organization Address [facility] Co de Phone Number [facility] [address] [place] [address] * (ABNORMAL) Protime-INR (10/18/2024 2:09 AM EDT) Prothrombin Time 14.5(H) 12.0 - 14.3 sec LAB COAGULATION METHOD 10/18/2024 2:53 AM EDT [facility] INR 1.1 0.9 - 1.1 LAB COAGULATION METHOD 10/18/2024 2:53 AM EDT [facility] Blood Venous blood specimen / Unknown Venipuncture / Unknown 10/18/2024 2:09 AM EDT 10/18/2024 2:25 AM EDT Narrative [facility] - 10/18/2024 2:53 AM EDT OPTIMAL INR RANGES FOR PATIENT ON ORAL ANTICOAGULANT THERAPY Prevention of venous thromboembolism INR 2.0 to 3.0 In patients with heart disease: Atrial fibrillation INR 2.0 to 3.0 Valvular heart disease INR 2.0 to 3.0 Tissue heart valves INR 2.0 to 3.0 Mechanical prosthetic valves INR 2.5 to 3.5 Prevention of recurrent MD INR 2.5 to 3.5 us Nirmal Cueto MD LAB BLOOD ORDERABLES Final Result Performing Organization Address City/[facility]/ZIP Co de Phone Number [facility] [address] [place] [address] * (ABNORMAL) POCT glucose meter (10/18/2024 2:08 AM EDT) [facility] POCT Glucose 202(H) 74 - 99 mg/dL [...] Comment 10/18/2024 2:10 AM EDT [facility]ALTHCARE LAB Hospitalist Medical Director ID Jourdan Grimes II 10/18/2024 2:10 AM EDT HEALTHCARE LAB Device ID [id number] 10/18/2024 2:10 AM EDT [facility]ALTH[facility]ARE LAB Specimen Type POC Capillary 10/18/2024 2:10 AM EDT [facility] Blood Capillary blood specimen / Unknown 10/18/2024 2:08 AM EDT 10/18/2024 2:10 AM EDT us Terrell Gautam MD LAB POINT OF CARE TE ST DOCKED DEVICE UNSOLICITED RESULTS Final Result Performing Organization Address City/State/[facility] Co de Phone Number [facility] [address] [place] [address] * (ABNORMAL) POCT glucose meter (10/17/2024 10:07 PM EDT) [facility] POCT Glucose 300(H) 74 - 99 mg/dL [...] for testing. Comment 10/17/2024 10:10 PM EDT [facility]ALTH[facility]ARE LAB Hospitalist Medical Director ID Jourdan Grimes II 10/17/2024 10:10 PM EDT HEALTHCARE LAB Device ID [id number] 10/17/2024 10:10 PM EDT [facility]ALTH[facility]ARE LAB Specimen Type POC Capillary 10/17/2024 10:10 PM EDT [facility] Blood Capillary blood specimen / Unknown 10/17/2024 10:07 PM EDT 10/17/2024 10:10 PM EDT Terrell Gautam MD LAB POINT OF CARE TE ST DOCKED DEVICE UNSOLICITED RESULTS Final Result Performing Organization Address City/[facility] Co de Phone Number [facility] [address] [place] [address] * (ABNORMAL) POCT glucose meter (10/17/2024 8:07 [...] Comment 10/17/2024 8:10 PM EDT [facility]ALTH[facility]ARE LAB Hospitalist Medical Director ID Jourdan Grimes II 10/17/2024 8:10 PM EDT [facility]ALTH[facility]ARE LAB Device ID [id number] 10/17/2024 8:10 PM EDT [facility]ARE LAB Specimen Type POC Capillary 10/17/2024 8:10 PM EDT [facility] Blood Capillary blood specimen / Unknown 10/17/2024 8:07 PM EDT 10/17/2024 8:10 PM EDT us Terrell Gautam MD LAB POINT OF CARE TE ST DOCKED DEVICE UNSOLICITED RESULTS Final Result Performing Organization Address City/[facility]/ZIP Co de Phone Number [facility] [address] [place] [address] * (ABNORMAL) POCT glucose meter (10/17/2024 4:01 [...] Comment 10/17/2024 4:03 PM EDT HEALTHCARE LAB Hospitalist Medical Director ID Keisha Waller 10/17/2024 4:03 PM EDT HEALTH[facility]ARE LAB Device ID [id number] 10/17/2024 4:03 PM EDT [facility]ALTH[facility]ARE LAB Specimen Type POC Capillary 10/17/2024 4:03 PM EDT [facility] Blood Capillary blood specimen / Unknown 10/17/2024 4:01 PM EDT 10/17/2024 4:03 PM EDT us Terrell Gautam MD LAB POINT OF CARE TE ST DOCKED DEVICE UNSOLICITED RESULTS Final Result Performing Organization Address City/State/[facility] Co de Phone Number [facility] [address] [place] [address] * (ABNORMAL) POCT glucose meter (10/17/2024 1:25 PM EDT) [facility] POCT Glucose 225(H) 74 - 99 mg/dL 10/17/2024 1:27 PM EDT [facility] Comment:Accuracy of [...] Comment 10/17/2024 1:27 PM EDT [facility]ALTH[facility]ARE LAB Hospitalist Medical Director ID Kizzy Godfrey 025 1:27 PM EDT HEALTH[facility]ARE LAB Device ID [id number] 10/17/2024 1:27 PM EDT [facility]ALTH[facility]ARE LAB Specimen Type POC Capillary 10/17/2024 1:27 PM EDT [facility] Blood Capillary blood specimen / Unknown 10/17/2024 1:25 PM EDT 10/17/2024 1:27 PM EDT us Terrell Gautam MD LAB POINT OF CARE TE ST DOCKED DEVICE UNSOLICITED RESULTS Final Result Performing Organization Address City/[facility] Co de Phone Number [facility] [address] [place] [address] * [place] Less than 1 Hour Intraoperative (10/17/2024 1:18 PM EDT) Narrative IMAGING - 10/17/2024 2:05 PM EDT Images were obtained for surgical purposes. See Terrell Gautam's surgical note in the patient's chart for the findings. Terrell Gautam MD IMG FLUOROSCOPY PROCEDURES Fi nal Result Performing Organization Address [facility] Co de Phone Number IMAGING * POCT ACT (10/17/2024 12:23 PM EDT) ACT+ (HIGH RANGE) 211 68 - 600 Seconds 10/29/2024 7:28 AM EDT HEALTHCARE LAB Hospitalist Medical Director ID Donna Mcmillan 10/29/2024 7:28 AM EDT HEALTHCARE LAB ACT Device ID [id number] 10/29/2024 7:28 AM EDT [facility] Comment 10/29/2024 7:28 AM EDT [facility] Comment: ACT performed by staff [...] 12:23 PM EDT 10/29/2024 7:28 AM EDT Terrell Gautam MD LAB POINT OF CARE TE ST DOCKED DEVICE UNSOLICITED RESULTS Final Result Performing Organization Address [facility] Co de Phone Number [facility] [address] [place], [place] [id number] [place] [address] LAB [address] [place] [address] * (ABNORMAL) Blood gas, arterial (10/17/2024 11:48 AM EDT) pH, Arterial 7.34 7.31 - 7.42 LAB HEMATOLOGY METHOD 10/17/2024 11:54 AM EDT [facility] pCO2, Arterial 41 32 - 45 mmHg LAB HEMATOLOGY METHOD 10/17/2024 11:54 AM EDT [facility] pO2, Arterial 202 >80 mmHg LAB HEMATOLOGY METHOD 10/17/2024 11:54 AM EDT [facility] SO2, Measured, Arterial 100(H) 94 - 98 % LAB HEMATOLOGY METHOD 10/17/2024 11:54 AM EDT [facility] Base Excess, Arterial -3.2(L) -2.0 - 3.0 mmol/L LAB HEMATOLOGY METHOD 10/17/2024 11:54 AM EDT [facility] Bicarbonate, Calculated, Arterial 22 22 - 26 mmol/L LAB HEMATOLOGY METHOD 10/17/2024 11:54 AM EDT [facility] Hematocrit, Whole Blood 28.6(L) 40.0 - 51.0 % LAB HEMATOLOGY METHOD 10/17/2024 11:54 AM EDT [facility] Sodium, Whole Blood 137 136 - 145 mmol/L LAB HEMATOLOGY METHOD 10/17/2024 11:54 AM EDT [facility] Potassium, Whole Blood 4.5 3.6 - 4.9 mmol/L LAB HEMATOLOGY METHOD 10/17/2024 11:54 AM EDT [facility] Chloride, Whole Blood 112(H) 97 - 107 mmol/L LAB HEMATOLOGY METHOD 10/17/2024 11:54 AM EDT [facility] Glucose, Whole Blood 201(H) 74 - 99 mg/dL LAB HEMATOLOGY METHOD 10/17/2024 11:54 AM EDT [facility] Ionized Calcium, Whole Blood 4.8 4.6 - 5.1 mg/dL LAB HEMATOLOGY METHOD 10/17/2024 11:54 AM EDT [facility] Lactate, Arterial, Whole Blood 2.3(H) 0.5 - 1.6 mmol/L LAB HEMATOLOGY METHOD 10/17/2024 11:54 AM EDT [facility] Blood Arterial blood specimen / Unknown Arterial Puncture / Unknown 10/17/2024 11:48 AM EDT 10/17/2024 11:53 AM EDT us Jenna Lopez CRNA LAB BLOOD ORDERABLES Final Re sult [facility] [address] [place] [address] * POCT ACT (10/17/2024 11:41 AM EDT) ACT+ (HIGH RANGE) 175 68 - 600 Seconds 10/29/2024 7:28 AM EDT HEALTHCARE LAB Hospitalist Medical Director ID Oneyda Alicea 10/29/2024 7:28 AM EDT HEALTHCARE LAB ACT Device ID [id number] 10/29/2024 7:28 AM EDT HEALTHCARE LAB Comment 10/29/2024 7:28 AM EDT [facility] Comment: ACT performed by staff [...] ST DOCKED DEVICE UNSOLICITED RESULTS Final Result [facility] [address] LAB [address] [place] [address] * POCT ACT (10/17/2024 11:11 AM EDT) ACT+ (HIGH RANGE) 252 68 - 600 Seconds 10/29/2024 7:28 AM EDT HEALTHCARE LAB Hospitalist Medical Director ID Donna Mcmillan 10/29/2024 7:28 AM EDT HEALTHCARE LAB ACT Device ID [id number] 10/29/2024 7:28 AM EDT HEALTH[facility]ARE LAB Comment 10/29/2024 7:28 AM EDT [facility] Comment: ACT performed by staff [...] RESULTS Final Result [facility] [address] LAB [address] [place] [address] * (ABNORMAL) Blood gas, arterial (10/17/2024 10:46 AM EDT) pH, Arterial 7.35 7.31 - 7.42 LAB HEMATOLOGY METHOD 10/17/2024 10:56 AM EDT [facility] pCO2, Arterial 42 32 - 45 mmHg LAB HEMATOLOGY METHOD 10/17/2024 10:56 AM EDT [facility] pO2, Arterial 161 >80 mmHg LAB HEMATOLOGY METHOD 10/17/2024 10:56 AM EDT [facility] SO2, Measured, Arterial 100(H) 94 - 98 % LAB HEMATOLOGY METHOD 10/17/2024 10:56 AM EDT [facility] Base Excess, Arterial -2.2(L) -2.0 - 3.0 mmol/L LAB HEMATOLOGY METHOD 10/17/2024 10:56 AM EDT [facility] Bicarbonate, Calculated, Arterial 23 22 - 26 mmol/L LAB HEMATOLOGY METHOD 10/17/2024 10:56 AM EDT [facility] Hematocrit, Whole Blood 29.9(L) 40.0 - 51.0 % LAB HEMATOLOGY METHOD 10/17/2024 10:56 AM EDT [facility] Sodium, Whole Blood 138 136 - 145 mmol/L LAB HEMATOLOGY METHOD 10/17/2024 10:56 AM EDT [facility] Potassium, Whole Blood 4.0 3.6 - 4.9 mmol/L LAB HEMATOLOGY METHOD 10/17/2024 10:56 AM EDT [facility] Chloride, Whole Blood 110(H) 97 - 107 mmol/L LAB HEMATOLOGY METHOD 10/17/2024 10:56 AM EDT [facility] Glucose, Whole Blood 174(H) 74 - 99 mg/dL LAB HEMATOLOGY METHOD 10/17/2024 10:56 AM EDT [facility] Ionized Calcium, Whole Blood 5.1 4.6 - 5.1 mg/dL LAB HEMATOLOGY METHOD 10/17/2024 10:56 AM EDT [facility] Lactate, Arterial, Whole Blood 1.4 0.5 - 1.6 mmol/L LAB HEMATOLOGY METHOD 10/17/2024 10:56 AM EDT [facility] Blood Arterial blood specimen / Unknown Arterial Puncture / Unknown 10/17/2024 10:46 AM EDT 10/17/2024 10:54 AM EDT us Jenna Lopez CRNA LAB BLOOD ORDERABLES Final Re sult [facility] [address] [place] [address] * POCT ACT (10/17/2024 10:37 AM EDT) ACT+ (HIGH RANGE) 206 68 - 600 Seconds 10/29/2024 7:28 AM EDT [facility] Hospitalist Medical Director ID Donna Mcmillan 10/29/2024 7:28 AM EDT [facility] ACT Device ID [id number] 10/29/2024 7:28 AM EDT [facility] Comment 10/29/2024 7:28 AM EDT [facility] Comment: ACT performed by staff [...] ST DOCKED DEVICE UNSOLICITED RESULTS Final Result [facility] [address] LAB [address] [place] [address] * Surgical Pathology Exam (10/17/2024 10:27 AM EDT) Case Report Surgical Pathology Case: [id number] Authorizing Provider: Terrell Gautam MD Collected: 10/17/2024 1027 Ordering Location: [facility] Received: 10/17/2024 1325 Pathologist: Haydee Osborne MD Specimen: Other (specify site), left common femoral plaque 10/21/2024 10:16 AM EDT [facility] Final Diagnosis A. LEFT COMMON FEMORAL PLAQUE, EXCISION: - CALCIFIED PLAQUE 10/21/2024 10:16 AM EDT [facility] at 1016 EDT Clinical Information Critical limb ischemia of left lower extremity [I70.222] 10/21/2024 10:16 AM EDT [facility] Gross Description A. LEFT COMMON FEMORAL PLAQUE Received in formalin labeled l eft common femoral plaque , is one aggregate of red-gabriel hard portions of plaque measuring 3.7 x 2.5 x 0.9 cm. The specimen is serially sectioned and senior human resources representative sections are submitted in cassette A1. Cold Time: <1m Kenia Aceves 10/21/2024 10:16 AM EDT [facility] Note: A resident was involved in the service. I attest I examined the relevant preparations for the specimens and confirmed the diagnosis or interpretation. 10/21/2024 10:16 AM EDT [facility] Tissue Topography unknown / Unknown 10/17/2024 10:27 AM EDT 10/17/2024 1:25 PM EDT Comment:Pre-op diagnosis: Critical limb ischemia of left lower extremity [I70.222] us Terrell Gautam MD LAB PATHOLOGY ORDERABLES Gwen grimaldo Result [facility] [address] [place] [address] * POCT ACT (10/17/2024 10:03 AM EDT) ACT+ (HIGH RANGE) 244 68 - 600 Seconds 10/29/2024 7:28 AM EDT [facility] Hospitalist Medical Director ID Donna Mcmillan 10/29/2024 7:28 AM EDT [facility] ACT Device ID [id number] 10/29/2024 7:28 AM EDT [facility] Comment 10/29/2024 7:28 AM EDT [facility] Comment: ACT performed by staff [...] ST DOCKED DEVICE UNSOLICITED RESULTS Final Result [facility] [address] LAB [address] [place] [address] * (ABNORMAL) Blood gas, arterial (10/17/2024 9:45 AM EDT) pH, Arterial 7.37 7.31 - 7.42 LAB HEMATOLOGY METHOD 10/17/2024 9:55 AM EDT [facility] pCO2, Arterial 43 32 - 45 mmHg LAB HEMATOLOGY METHOD 10/17/2024 9:55 AM EDT [facility] pO2, Arterial 177 >80 mmHg LAB HEMATOLOGY METHOD 10/17/2024 9:55 AM EDT [facility] SO2, Measured, Arterial 100(H) 94 - 98 % LAB HEMATOLOGY METHOD 10/17/2024 9:55 AM EDT [facility] Base Excess, Arterial -0.5 -2.0 - 3.0 mmol/L LAB HEMATOLOGY METHOD 10/17/2024 9:55 AM EDT [facility] Bicarbonate, Calculated, Arterial 25 22 - 26 mmol/L LAB HEMATOLOGY METHOD 10/17/2024 9:55 AM EDT [facility] Hematocrit, Whole Blood 30.0(L) 40.0 - 51.0 % LAB HEMATOLOGY METHOD 10/17/2024 9:55 AM EDT [facility] Sodium, Whole Blood 137 136 - 145 mmol/L LAB HEMATOLOGY METHOD 10/17/2024 9:55 AM EDT [facility] Potassium, Whole Blood 4.3 3.6 - 4.9 mmol/L LAB HEMATOLOGY METHOD 10/17/2024 9:55 AM EDT [facility] Chloride, Whole Blood 108(H) 97 - 107 mmol/L LAB HEMATOLOGY METHOD 10/17/2024 9:55 AM EDT [facility] Glucose, Whole Blood 191(H) 74 - 99 mg/dL LAB HEMATOLOGY METHOD 10/17/2024 9:55 AM EDT [facility] Ionized Calcium, Whole Blood 5.0 4.6 - 5.1 mg/dL LAB HEMATOLOGY METHOD 10/17/2024 9:55 AM EDT [facility] Lactate, Arterial, Whole Blood 1.3 0.5 - 1.6 mmol/L LAB HEMATOLOGY METHOD 10/17/2024 9:55 AM EDT [facility] Blood Arterial blood specimen / Unknown Arterial Line / Unknown 10/17/2024 9:45 AM EDT 10/17/2024 9:52 AM EDT us Jenna Lopez HOME HEALTH CARE PROVIDER LAB BLOOD ORDERABLES Final Re sult [facility] [address] [place] [address] * (ABNORMAL) Blood gas, arterial (10/17/2024 8:47 AM EDT) pH, Arterial 7.37 7.31 - 7.42 LAB HEMATOLOGY METHOD 10/17/2024 8:59 AM EDT [facility] pCO2, Arterial 43 32 - 45 mmHg LAB HEMATOLOGY METHOD 10/17/2024 8:59 AM EDT [facility] pO2, Arterial 205 >80 mmHg LAB HEMATOLOGY METHOD 10/17/2024 8:59 AM EDT [facility] SO2, Measured, Arterial 100(H) 94 - 98 % LAB HEMATOLOGY METHOD 10/17/2024 8:59 AM EDT [facility] Base Excess, Arterial -0.3 -2.0 - 3.0 mmol/L LAB HEMATOLOGY METHOD 10/17/2024 8:59 AM EDT [facility] Bicarbonate, Calculated, Arterial 25 22 - 26 mmol/L LAB HEMATOLOGY METHOD 10/17/2024 8:59 AM EDT [facility] Hematocrit, Whole Blood 31.3(L) 40.0 - 51.0 % LAB HEMATOLOGY METHOD 10/17/2024 8:59 AM EDT [facility] Sodium, Whole Blood 138 136 - 145 mmol/L LAB HEMATOLOGY METHOD 10/17/2024 8:59 AM EDT [facility] Potassium, Whole Blood 4.0 3.6 - 4.9 mmol/L LAB HEMATOLOGY METHOD 10/17/2024 8:59 AM EDT [facility] Chloride, Whole Blood 108(H) 97 - 107 mmol/L LAB HEMATOLOGY METHOD 10/17/2024 8:59 AM EDT [facility] Glucose, Whole Blood 162(H) 74 - 99 mg/dL LAB HEMATOLOGY METHOD 10/17/2024 8:59 AM EDT [facility] Ionized Calcium, Whole Blood 5.2(H) 4.6 - 5.1 mg/dL LAB HEMATOLOGY METHOD 10/17/2024 8:59 AM EDT [facility] Lactate, Arterial, Whole Blood 1.7(H) 0.5 - 1.6 mmol/L LAB HEMATOLOGY METHOD 10/17/2024 8:59 AM EDT [facility] Blood Arterial blood specimen / Unknown Arterial Puncture / Unknown 10/17/2024 8:47 AM EDT 10/17/2024 8:58 AM EDT us Jenna Lopez [facility] LAB BLOOD ORDERABLES Final Re sult [facility] [address] [place] [address] * POCT ACT (10/17/2024 8:46 AM EDT) ACT+ (HIGH RANGE) 101 68 - 600 Seconds 10/29/2024 7:28 AM EDT [facility] Hospitalist Medical Director ID HipolitoAdaDonna Maya 10/29/2024 7:28 AM EDT [facility] ACT Device ID [id number] 10/29/2024 7:28 AM EDT [facility]ALTH[facility] Comment 10/29/2024 7:28 AM EDT [facility] Comment: ACT performed by staff [...] UNSOLICITED RESULTS Final Result Performing Organization Address [facility] de Phone Number [facility] [address] [facility] [address] [place] [address] * Type and Screen (10/17/2024 7:19 AM EDT) Pathologist [facility] ABO/Rh A Negative 10/17/2024 7:04 AM EDT BLOOD BANK Antibody Screen Negative 10/17/2024 7:04 AM EDT BLOOD BANK Specimen Expiration 10/20/2024 23:59 10/17/2024 7:04 AM EDT BLOOD BANK Blood Venous blood specimen / Unknown Venipuncture / Unknown 10/17/2024 7:19 AM EDT 10/17/2024 7:28 AM EDT us Maria Fernanda Mccallum MD LAB BLOOD BANK TEST ORDERAB LES Final Result Performing Organization Address [facility] de Phone Number BLOOD BANK [address] [place] [place] [address] * (ABNORMAL) POCT glucose meter (10/17/2024 6:44 AM EDT) [facility] POCT Glucose 178(H) 74 - 99 mg/dL 10/17/2024 6:49 AM EDT [facility] Comment:Accuracy of [...] testing. Comment 10/17/2024 6:49 AM EDT [facility] Hospitalist Medical Director ID Hunter Burroughs 10/18/19 6:49 AM EDT [facility] Device ID [id number] 10/17/2024 6:49 AM EDT [facility] Specimen Type POC Capillary 10/17/2024 6:49 AM EDT [facility] Blood Capillary blood specimen / Unknown 10/17/2024 6:44 AM EDT 10/17/2024 6:49 AM EDT Terrell Gautam MD LAB POINT OF CARE TE ST DOCKED DEVICE UNSOLICITED RESULTS Final Result [facility] [address] [place] [address] documented in this encounter Visit Diagnoses Diagnosis [...] 1400, Until Discontinued, Routine, Recovery(Phase II-Outpatient)/On Unit(Inpatient) 1415 (Not Given - Provider: Keisha Waller RN - Reason: Order changed)2102 (Given - Provider: Jourdan Grimes II, RN) 0612 (Not Given - Provider: Rose De La Torre RN - Reason: Patient/family refused)1434 (Not Given - Provider: Jere Farrell RN - Reason: Patient/family refused)211 (Not Given - Provider: Kassie Mao RN - Reason: Patient/family refused) 0534 (Not Given - Provider: Kassie Mao RN - Reason: Patient/family refused - Comment: states [...] Unit(Inpatient) 1414 (Given - Provider: Keisha Waller, CHRISTIAN) 0809 (Given - Provider: Emilia Alonso, CHRISTIAN) [...] CHRISTIAN)2001 (Given - Provider: Kassie Mao, CHRISTIAN) 09 (Given - Provider: Keyla Chow) enoxaparin (Lovenox) [...] Routine 1204 (Given - Provider: Venessa Marcano, CHRISTIAN)181 (Not Given - Provider: Keyla Chow - [...] - Reason: NPO)1610 (Given - Provider: Keisha Waller RN - Comment: The patient is post op [...] II, CHRISTIAN) 0809 (Given - Provider: Emilia Alonso RN)2001 (Given - Provider: Kassie Mao, CHRISTIAN) 0951 [...] (Given - Provider: Jourdan Grimes II, RN) 0801 (Given - Provider: Emilia Alonso RN)2001 (Given - Provider: Kassie Mao, CHRISTIAN) 951 (Given - Provider: Keyla Chow) sodium chloride 0.9 % flush 10 mL (CANCELED)(Linked Group 1) 10 mL, Intravenous, Every 12 hours, First dose on Yadira 10/17/24 at 0745, Until Discontinued, Routine, Holding - Preprocedure 0707 (Given - Provider: Tanja Denise RN)1945 (Given - Provider: Jourdan Grimes II, RN) 0726 (Canceled Entry - Provider: Emilia Alonso RN) tamsulosin (Flomax) 24 hr capsule 0.4 mg 0.4 mg, Oral, Every evening, First dose on Yadira 10/17/24 at 1700, Until Discontinued, Routine, Recovery(Phase II-Outpatient)/On Unit(Inpatient) 1656 (Given - Provider: Keisha Waller RN) 1744 (Given - Provider: Keyla Chow) PRN Medication Order 10/17/2024 10/18/2024 10/19/2024 acetaminophen (Tylenol) tablet 1,000 mg (COMPLETED) 1,000 mg, Oral, Once as needed, 1 dose, Starting on Yadira 10/17/24 at 1225, Until Yadira 10/17/24 at 1414, Routine, Recovery (Phase I only), pain score of >1 out of 10 1414 (Given - Provider: Keisha Waller RN) ceFAZolin (Ancef) 1 g in sodium chloride [...] Alonso RN) 0239 (Given - Provider: Kassie Mao RN) Linked Groups Order Group 1: Insert peripheral [...] documented as of this encounter Care Teams Rehab Assistant Relationship Specialty Start Date End Date Asad Victor MD [address] [place] [address] PCP - General 10/07/22 documented as of this encounter
--- OUTSIDE RECORDS SUMMARY | 2024-10-17 07:51 | XMS_ITS | Encounter Summary ---
Author Organization [facility] Address [address] [id number] Care Team Providers Care Payroll Auditor Name Role Phone Asad Victor MD Primary Care Provider + [phone] Reason for Visit * Auth/Cert (Routine) Specialty Diagnoses / Procedures Referred By Contac t Referred To Contact Diagnoses Critical limb ischemia of left lower extremity Critical limb ischemia of left lower extremity [I70.222] Procedures [place] VEIN BYPASS GRAFT,FEM-POP CREATION, BYPASS, ARTERIAL, FEMORAL TO POPLITEAL Terrell Gautam MD [address] [facility] [address] [place] [address] Phone: tel: fax: PAV A OPERATING ROOM [address] [place] [address] Phone: tel: Referral ID Status Reason Start Date Expiration Date Visits Re quested Visits Authorized [id number] 1 1 Encounter Details Date Type Department Care Team (Late st Contact Info) Description 10/17/2024 7:51 AM EDT Anesthesia Event PAV A OPERATING ROOM [address] [place] [address] Maria Fernanda Mccallum MD [address] [place] [address] Anesthesia Record Procedure Summary Procedure [...] Hand; Site Prep: Chlorhexidine ; Local Anesth: [place]; Technique: Anatomical landmarks; Inserted by: CHRISTIAN Acuna; [...] 10/17/24; Removal Time: 1425 10/17/24 0825 by Jnena Lopez CRNA 10/17/24 1425 by Keisha Waller [...] in the past [address] [facility], were you homeless or living in [...] drink first t dino in the morning (EYE-RADAR SIGNAL PROCESSING ENGINEER) to steady your nerves or to [...] * Anesthesia Postprocedure Evaluation - Jenna Lopez, MANUFACTURING MACHINE OPERATOR - 10/17/2024 1:29 PM EDT Patient: [...] by Swetha Villareal MD Staffing Performed: ISH MANUFACTURING MACHINE OPERATOR: Jenna Lopez CRNA * Anesthesia Procedure Notes - Jenna Lopez CRNA - 10/17/2024 9:00 AM EDT Associated Order(s): Airway Airway Date/Time: 10/17/2024 8:03 AM Reason: elective Airway not difficult General Information and Staff Patient location during procedure: OR MANUFACTURING MACHINE OPERATOR: Jenna Lopez CRNA Performed: MANUFACTURING MACHINE OPERATOR Patient Condition Indications for airway management: [...] T2DM, HLD, HTN, RLS who presented to [facility] with a large left common [...] CEA 2016 + 3rd degree AV block COMPUTER TERMINAL OPERATOR-P placed 08/2023 for Wenkeback with 11 sec pause + HLD + HTN - controlled + PAD 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 CORONARY ANGIOPLASTY Left Coronary Angiography With Concomitant Left Heart Catheterization from [employer] ??? CORONARY ARTERY BYPASS GRAFT N/A 2018 [...] Description 11/26/2024 2:00 PM EDT Hospital Encounter [facility] [address] [place] [address] 11/26/2024 2:30 PM EDT Hospital Encounter [facility] [address] [place] [address] 11/26/2024 3:20 PM EDT Office Visit [facility] [address] [place] [address] Elisabet Schuster, GLENDA [address] [facility] [address] [place] [address] 11/29/2024 2:30 PM EDT Office Visit [facility] [address] [place] [address] Oscar Appiah MD [facility] [address] [place] [address] documented as of this encounter Goals Goal [...] ANESTHESIA PLACEHOLDER Routine 10/17/2024 8:03 AM EDT [place] AN ELECTIVE ENDOTRACHEAL AIRWAY Routine 10/17/2024 8:03 [...] Performed by Swetha Villareal MD Staffing Performed: MANUFACTURING MACHINE OPERATOR MANUFACTURING MACHINE OPERATOR: Jenna Lopez CRNA Maria Fernanda Mccallum MD ANESTHESIA ORDERABLES Edite d Result - Final * [place] AN ELECTIVE ENDOTRACHEAL AIRWAY, PB ANESTHESIA PLACEHOLDER (10/17/2024 8:03 AM EDT) Narrative Jenna Lopez CRNA - 10/17/2024 8:03 AM EDT Jenna Lopez CRNA 10/17/2024 9:00 AM Airway Date/Time: 10/17/2024 8:03 AM Reason: elective Airway not difficult General Information and Staff Patient location during procedure: OR MANUFACTURING MACHINE OPERATOR: Jenna Lopez CRNA Performed: ISH Patient [...] Mccallum MD ANESTHESIA ORDERABLES Final Result * [facility] AN POCUS CARDIAC PROCDOC (10/17/2024 7:18 AM [...] Trace AR. The images were Saved in [employer]. The study was technically adequate. [...] documented as of this encounter Care Teams Payroll Auditor Relationship Specialty Start Date End Date Asad Victor MD [address] [place] [address] PCP - General 10/07/22 documented as of this encounter
--- OUTSIDE RECORDS SUMMARY | 2024-10-17 08:00 | XMS_ITS | Encounter Summary ---
Author Organization [facility] Address [address] [place] [address] Care Team Providers Care Chef De Cuisine Name Role Phone Asad Victor MD Primary Care Provider + [phone] Reason for Visit * Auth/Cert (Routine) Specialty Diagnoses / Procedures Referred By Contac t Referred To Contact Diagnoses Critical limb ischemia of left lower extremity Critical limb ischemia of left lower extremity [I70.222] Procedures CT VEIN BYPASS GRAFT,FEM-POP CREATION, BYPASS, ARTERIAL, FEMORAL TO POPLITEAL Terrell Gautam MD [address] [address] Phone: tel: fax: [facility] [address] [place] [address] Phone: tel: Referral ID Status Reason Start Date Expiration Date Visits Re quested Visits Authorized [id number] 1 1 Encounter Details Date Type Department Care Team (Late st Contact Info) Description 10/17/2024 8:00 AM EDT - 10/17/2024 2:50 PM EDT Surgery [facility] [address] [place] [address] Terrell Gautam MD [address] [address] CREATION, BYPASS, ARTERIAL, FEMORAL TO POPLITEAL [06751 (CPT )] Surgery Details Date/Time Status Location [...] any time in the past 12 m [facility], were you homeless or living [...] drink first t dino in the morning (EYE-SOIL FERTILITY SPECIALIST) to steady your nerves or to get rid of a hangover? 0 10/18/2021 CAGE Questionnaire Score 0 022 Utilities Answer Date Recorded In the past 12 months has th e Confer, gas, oil, or water [employer] threatened to shut off services in your [...] provided Taken 10/17/20242107 by Jourdan Grimes II, wire winder Review/Management: medications reviewed Problem: Skin Injury Risk [...] Ongoing, Progressing Intervention: Promote Activity and Functional [place] Flowsheets (Taken 10/19/2024 1048) Self-Care Promotion: BADL personal objects within reach meal set-up provided * Yuni Ramires - Keyla Chow - 10/19/2024 11:45 AM EDT Images from the original note were not included. [id number] After Peripheral Artery Bypass Surgery: In the [...] home. Last Reviewed Date: 2023 00:00:00 ?? [id number] [employer]. All rights reserved. This information is not intended as a substitute for professional medical care. Always follow your healthcare professional's instructions. * Progress Notes - Emelina Friend - 10/19/2024 11:44 AM EDT Case Management Adult Progress Note Bev Bobby 64 y.o. male CSN: [id number] Admission: 10/17/2024 6:21 AM Primary Problem: Critical [...] if any other needs arise. Emelina Friend REGIONAL PLANNER, ENGINEERING SUPERVISOR Social Work Case Management * Yuni Ramires - Keyla Chow - 10/19/2024 11:44 AM EDT Images from the original note were not included. [id number] Peripheral Artery Disease (PAD) Peripheral artery disease [...] cause. Last Reviewed Date: 2024 00:00:00 ?? [id number] [employer]. All rights reserved. This information is not intended as a substitute for professional medical care. Always follow your healthcare professional's instructions. * Yuni Ramires - Keyla Chow - 10/19/2024 11:44 AM EDT Images from the original note were not included. [id number] Leg Artery Emergencies: Critical Limb Ischemia (CLI) [...] appointments. Last Reviewed Date: 2023 00:00:00 ?? [id number] [employer]. All rights reserved. This information is not intended as a substitute for professional medical care. Always follow your healthcare professional's instructions. * Discharge Summary - Dandy Baltazar MD - 10/19/2024 11:31 AM EDT Hospitalization Admit Date/Time: 10/17/2024 6:21 AM Admitting Attending: Terrell Gautam Discharge Date: 10/19/24 Discharge Attending Physician: Nirmal Cueto MD PCP name and Address: Asad Victor MD (Inactive) [address] [facility] [address] Referring provider name and address: Timothy Marques PA [address] [place] [address] Chief Concern, Brief History of Present Illness, and Hospital Course Bev Bobby is an 64 y.o. 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 [...] Your Medications These medications were sent to [facility] [place], [place] - [address] [facility] [facility] [address] [facility] [facility] [facility] [address] [facility] [address] acetaminophen 500 MG tablet clopidogrel 75 MG [...] of water. 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 [...] provided Taken 10/17/20242107 by Jourdan Grimes II wire winder Review/Management: medications reviewed Problem: Skin Injury Risk [...] Ongoing, Progressing Intervention: Promote Activity and Functional [place] Flowsheets (Taken 10/19/2024 1048) Self-Care Promotion: BADL personal objects within reach meal set-up provided * Progress Notes - Feim Cole - 10/19/2024 9:08 AM EDT PHYSICAL [...] evaluation. PARTICIPANTS IN CARE Visitors Present No Bilingual Counter Sales Retail (if applicable) PRESENTATION Oxygen Oxygen Therapy: None [...] Level of Mobility Ambulatory- household only Mobility [place] Independent gait with device (rollator) History of [...] numbness in rodney) BED MOBILITY Level of Denton Physical/Non- physical Assist Adaptive Equipment Utilized Rolling/ Turning Scooting/ Bridging Modified independence (anteriorly to EOB) Bed rails Supine to Sit Modified [place] (to the right) (HOB flat) Bed rails Sit to Supine Interventions HOB flat to simulate home environment TRANSFERS Level of [place]enton Physical/Non- physical Assist Adaptive Equipment Utilized Sit [...] stable surfaces during transitions. AMBULATION Level of Denton Distance Adaptive Equipment Utilized Ambulation Standby assist, [...] Posture: Forward head, Rounded shoulders Level of Denton Balance Support Interventions Static Sit Independent Right [...] Assessments Standardized Assessments: AMPA 6-Clicks Mobility Assessment [facility] 6-Clicks Mobility Assessment Difficulty patient has turning [...] steps with a railing?: A little [facility] 6-Clicks Mobility Assessment Total : 22 ASSESSMENT [...] evaluation/session. Participants in Care Family/Caregiver Present: No Bilingual Counter Sales Retail: Not Applicable Presentation Oxygen Therapy: None (Room [...] Level of Mobility: Ambulatory- household only Mobility Denton: Independent gait with device (rollator) History of [...] Mobility Bed Mobility Exam: Scooting/Bridging Level of Denton: Modified independence (anteriorly to EOB) Assistive Device: Bed rails Bed Mobility Exam: Supine to Sit Level of Denton: Modified [place] (to the right) Physical/Nonphysical Assist: (HOB flat) Assistive Device: Bed rails Transfers Transfer Exam: Sit to stand Level of Denton: Stand-by assist Physical/Nonphysical Assist: Supervision, Verbal Cues, Minimal cues Assistive Device: Walker, rolling Transfer Exam: Stand to Sit Level of Denton: Stand-by assist Physical/Nonphysical Assist: Supervision, Verbal Cues, [...] regarding toileting at this time. Standardized Assessments [facility] 6-Click Daily Activities Help from Other: Don/Doff Regular Lower Body Clothings: None Help From Other: Bathing: Little Help From Other: Toileting: None Help From Other: Don/Doff Upper Body Clothings: None Help From Other: Grooming: None Help From Other: Eating Meals: None [facility] 6 Click - Daily Activities Score: 23/[address] [facility] Scoring Interpretation: Scores greater than 20.5 suggest [...] Note Bev Bobby 64 y.o. male CSN: [id number] Admission: 10/17/2024 6:21 AM Primary Problem: Critical limb ischemia of left lower extremity Furniture Rental Consultant reviewed chart and spoke with patient to complete this Initial Case Management Assessment. PCP: Asad Victor MD (Inactive) - Dr. Palomo Preferred pharmacy is [facility] Emergency Contact: Extended Emergency Contact Information Primary Emergency Contact: Patti Hill Relation: Sister Bilingual Counter Sales Retail needed? No Insurance: Primary Visit Coverage Payer Plan Sponsor Code Group Number Group Name [facility] MEDICARE [facility] MEDICARE REPLACEMENT [id number] Primary Visit Coverage Subscriber Subscriber ID Subscriber Name Subscriber [facility] Subscriber Address [id number] BEV BOBBY [id number] [place] [address] Secondary Visit Coverage Payer Plan Sponsor Code Group Number Group Name [employer] [facility] [employer] [facility] Secondary Visit Coverage Subscriber Subscriber ID Subscriber Name Subscriber [facility] Subscriber Address [id number] BEV BOBBY [id number] [place] [address] Patient information: Primary Caregiver: Self Daily Living Activities: Functional Status: Independent Living Arrangements: Alone Type of Residence: Private residence, Single Level [address] [place] [address] Current DME: Equipment Currently Used at Home: joy monterroso Income Information: Income Source: Retired Income/Expense Information: Income meets expenses Current Resources Utilized: Food Spencer Housing Circumstances-Z Codes: Housing Circumstances (select all [...] Services: None. Living Will/Advance Directive/Power of Rehabilitation Worker /Guardian: Denied. Additional Comments: Patient is not medically ready for discharge. SW will continue to follow. Mariia Monterroso ENGINEERING SUPERVISOR * Care Plan - Emilia Alonso RN [...] [facility] Department of Surgery Division of Vascular [...] Prevention: activity supervised assistive device/personal items within [facility] fall prevention program maintained lighting adjusted clutter-free [...] Agree with above assessment and evaluation from resident/MEDICINE TECHNOLOGIST. * Op Note - Terrell Gautam MD - 10/17/2024 8:52 AM EDT Operative Note Date: 10/17/24 Location: [place] [facility] Name: Bev Bobby, : 1960, Diagnoses: Pre-op Diagnosis Critical limb ischemia of left lower extremity Common femoral artery pseudoaneurysm Post-op Diagnosis Critical limb ischemia of left lower extremity Common femoral artery pseudoaneurysm Procedure(s): Left common/superficial/profunda femoral thromboendarterectomy with bovine patch repair Left external iliac artery/FRONT END LOADER OPERATOR stent Attending Surgeon(s): * Terrell Gautam - Primary Community Health Worker(s): * Luna Beckett MD - Resident [...] Necessity Reasons Recent surgery contiguous with urinary tract/HANGER OFF/colorectal 10/17/24 190 Output (mL) 50 mL 10/18/24 08 Implants Type Name Action Serial No. VASCUGUARD 8 X 8 - [id number] Implanted STENT ENDOPROSTHESIS VIABAHN 9FR [id number] - [id number] Implanted [id number] Specimen: Specimens ID Source Frozen? 1 Other [...] and distal control. We then proceeded with ftzfg-jps-shrn exposure of the popliteal artery. A medial [...] balloon dilated thestent with a 9 mm Struthers. We closed the arteriotomy with a single [...] 10/17/2024 8:52 AM EDT Date: 10/17/24 Location: [place] [facility] Name: Bev Bobby, : 1960, Diagnoses: Pre-op Diagnosis Critical limb ischemia of left lower extremity Common femoral artery pseudoaneurysm Post-op Diagnosis Critical limb ischemia of left lower extremity Common femoral artery pseudoaneurysm Procedure(s): Left common/superficial/profunda femoral thromboendarterectomy with bovine patch repair Left external iliac artery/FRONT END LOADER OPERATOR stent Attending Surgeon(s): * Terrell Gautam - Primary Community Health Worker(s): * Luna Beckett MD - Resident - Assisting * Dandy Baltazar MD - Fellow Anesthesia: General ASA: III Blood Administration: Blood Product Administration History None Estimated Blood Loss: 300 mL Drains: Urethral Catheter Temperature probe 16 Fr. (Active) Implants Type Name Action Serial No. VASCUGUARD 8 X 8 - [id number] Implanted STENT ENDOPROSTHESIS VIABAHN 9FR [id number] - [id number] Implanted [id number] Specimen: Specimens ID Source Frozen? 1 Other [...] issues. 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 He previouslyunderwent thrombin injection. He reports pain in his calves. He presents today for scheduled left lower extremity femoral to vazkx-[id number]-pwca popliteal bypass. Planned likely use PTFE. He [...] 16. Results Review {Vanishing Link Review Results :[id number] I have reviewed the latest lab and imaging results. Assessment & Plan Critical limb ischemia of left lower extremity Proceed with scheduled surgery left lower extremity femoral to [id number] popliteal artery bypass graft. Extensive discussion had [...] Description 11/26/2024 2:00 PM EDT Hospital Encounter [facility] [address] [place] [address] 11/26/2024 2:30 PM EDT Hospital Encounter [facility] [address] [place] [address] 11/26/2024 3:20 PM EDT Office Visit [facility] [address] [facility] 5th Floor [address] [place] [address] Elisabet Schuster, PA [address] [facility] [address] [place] [address] 11/29/2024 2:30 PM EDT Office Visit [facility] [address] [place] [address] Oscar Appiah MD [address] [facility] [address] [place] [address] Pending Results Name Type Priority Associated Diagnoses [...] PREPARE RBC STAT 10/17/2024 8:[address] VEIN BYPASS GRAFT,FEM-POP 10/17/2024 7:38 AM EDT Critical limb ischemia of left lower extremity TYPE AND SCREEN Routine 10/17/2024 7:19 AM EDT POCT GLUCOSE METER UNSOLICITED RESULTS Routine 10/17/2024 6:44 AM EDT documented in this encounter Results * (ABNORMAL) POCT glucose meter (10/19/2024 11:40 AM EDT) [facility] POCT Glucose 207(H) 74 - 99 mg/dL [...] Comment 10/19/2024 11:42 AM EDT HEALTHCARE LAB Damage Adjuster ID KamranJob 10/20/19 11:42 AM EDT HEALTHCARE LAB Device ID [id number] 10/19/2024 11:42 AM EDT HEALTHCARE LAB Specimen Type POC Capillary 10/19/2024 11:42 AM EDT [facility] Blood Capillary blood specimen / Unknown 10/19/2024 11:40 AM EDT 10/19/2024 11:42 AM EDT us Terrell Gautam MD LAB POINT OF CARE TE ST DOCKED DEVICE UNSOLICITED RESULTS Final Result Performing Organization Address City/State/[facility] Co de Phone Number HEALTHCARE LAB [address] [place] [address] * (ABNORMAL) Protime-INR (10/19/2024 8:25 AM EDT) [facility] Prothrombin Time 17.5(H) 12.0 - 14.3 sec LAB COAGULATION METHOD 10/19/2024 9:25 AM EDT [facility] INR 1.4(H) 0.9 - 1.1 LAB COAGULATION METHOD 10/19/2024 9:25 AM EDT [facility] Blood Venous blood specimen / Unknown Venipuncture / Unknown 10/19/2024 8:25 AM EDT 10/19/2024 8:43 AM EDT Narrative [facility] - 10/19/2024 9:25 AM EDT OPTIMAL INR RANGES FOR PATIENT ON ORAL ANTICOAGULANT THERAPY Prevention of venous thromboembolism INR 2.0 to 3.0 In patients with heart disease: Atrial fibrillation INR 2.0 to 3.0 Valvular heart disease INR 2.0 to 3.0 Tissue heart valves INR 2.0 to 3.0 Mechanical prosthetic valves INR 2.5 to 3.5 Prevention of recurrent AK INR 2.5 to 3.5 us Nirmal Cueto MD LAB BLOOD ORDERABLES Final Result Performing Organization Address [facility]/ZIP Co de Phone Number [facility] [address] [place] [address] * (ABNORMAL) Phosphorus (10/19/2024 8:25 AM EDT) Phosphorus, Plasma 2.2(L) 2.5 - 4.5 mg/dL 10/19/2024 9:12 AM EDT [facility] Blood Venous blood specimen / Unknown Venipuncture / Unknown 10/19/2024 8:25 AM EDT 10/19/2024 8:43 AM EDT us Nirmal Cueto MD LAB BLOOD ORDERABLES Final Result Performing Organization Address [facility] Co de Phone Number [facility] [address] [place] [address] * Magnesium (10/19/2024 8:25 AM EDT) Magnesium, Plasma 2.1 1.9 - 2.4 mg/dL 10/19/2024 9:12 AM EDT [facility] Blood Venous blood specimen / Unknown Venipuncture / Unknown 10/19/2024 8:25 AM EDT 10/19/2024 8:43 AM EDT Nirmal Cueto MD LAB BLOOD ORDERABLES Final Result Performing Organization Address [facility] Co de Phone Number [facility] [address] [place] [address] * (ABNORMAL) Basic metabolic panel (10/19/2024 8:25 AM EDT) Glucose, Plasma 191(H) 74 - 99 mg/dL 10/19/2024 9:12 AM EDT [facility] BUN, Plasma 18 8 - 23 mg/dL 10/19/2024 9:12 AM EDT [facility] Creatinine, Plasma 0.76 0.70 - 1.20 mg/dL 10/19/2024 9:12 AM EDT [facility] BUN/Creatinine Ratio 24 10/19/2024 9:12 AM EDT [facility] Sodium, Plasma 135(L) 136 - 145 mmol/L 10/19/2024 9:12 AM EDT [facility] Potassium, Plasma 4.1 3.6 - 4.9 mmol/L 10/19/2024 9:12 AM EDT [facility] Chloride, Plasma 104 97 - 107 mmol/L 10/19/2024 9:12 AM EDT [facility] CO2, Plasma 22 22 - 29 mmol/L 10/19/2024 9:12 AM EDT [facility] Anion Gap 9 6 - 16 mmol/L 10/19/2024 9:12 AM EDT [facility] Total Calcium, Plasma 8.4(L) 8.9 - 10.2 mg/dL 10/19/2024 9:12 AM EDT [facility] eGFRcr 99.7 mL/min/1.7 3m*2 10/19/2024 9:12 AM EDT [facility] Comment:Reported eGFRcr in m L/min/1.73m2 is based the CKD-EPI 2020 equation that does not use a race coefficient. Blood Venous blood specimen / Unknown Venipuncture / Unknown 10/19/2024 8:25 AM EDT 10/19/2024 8:43 AM EDT us Nirmal Cueto MD LAB BLOOD ORDERABLES Final Result [facility] [address] [place] [address] * (ABNORMAL) CBC W/O Differential (10/19/2024 8:25 AM EDT) WBC Count 14.10(H) 3.70 - 10.30 10*3/uL LAB HEMATOLOGY METHOD 10/19/2024 8:52 AM EDT [facility] RBC Count 2.61(L) 4.60 - 6.10 10*6/uL LAB HEMATOLOGY METHOD 10/19/2024 8:52 AM EDT [facility] HGB 8.0(L) 13.7 - 17.5 g/dL LAB HEMATOLOGY METHOD 10/19/2024 8:52 AM EDT [facility] HCT 24.3(L) 40.0 - 51.0 % LAB HEMATOLOGY METHOD 10/19/2024 8:52 AM EDT [facility] Platelet Count 318 155 - 369 10*3/uL LAB HEMATOLOGY METHOD 10/19/2024 8:52 AM EDT [facility] MCV 93 79 - 98 fL LAB HEMATOLOGY METHOD 10/19/2024 8:52 AM EDT [facility] MCH 30.7 26.0 - 32.0 pg LAB HEMATOLOGY METHOD 10/19/2024 8:52 AM EDT [facility] MCHC 32.9 30.7 - 35.5 g/dL LAB HEMATOLOGY METHOD 10/19/2024 8:52 AM EDT [facility] RDW 13.4 11.5 - 14.5 % LAB HEMATOLOGY METHOD 10/19/2024 8:52 AM EDT [facility] MPV 9.6 8.8 - 12.5 fL LAB HEMATOLOGY METHOD 10/19/2024 8:52 AM EDT [facility] nRBC 0.0 <=0.0 per 100 WBCs LAB HEMATOLOGY METHOD 10/19/2024 8:52 AM EDT [facility] Blood Venous blood specimen / Unknown Venipuncture / Unknown 10/19/2024 8:25 AM EDT 10/19/2024 8:44 AM EDT us Nirmal Cueto MD LAB BLOOD ORDERABLES Final Result [facility] [address] [place] [address] * (ABNORMAL) POCT glucose meter (10/19/2024 7:35 AM EDT) [facility] POCT Glucose 187(H) 74 - [...] Comment 10/19/2024 7:37 AM EDT HEALTHCARE LAB Damage Adjuster ID Job Andrew 10/20/19 7:37 AM EDT HEALTHCARE LAB Device ID [id number] 10/19/2024 7:37 AM EDT HEALTHCARE LAB Specimen Type POC Capillary 10/19/2024 7:37 AM EDT [facility]ALTH[facility]ARE LAB Blood Capillary blood specimen / Unknown 10/19/2024 7:35 AM EDT 10/19/2024 7:37 AM EDT us Terrell Gautam MD LAB POINT OF CARE TE ST DOCKED DEVICE UNSOLICITED RESULTS Final Result Performing Organization Address City/State/[facility] Co de Phone Number HEALTHCARE LAB [address] [place] [address] * (ABNORMAL) POCT glucose meter (10/18/2024 7:22 [...] Comment 10/18/2024 7:24 PM EDT HEALTHCARE LAB Damage Adjuster ID Mahesh Aldana 10/18/2024 7:24 PM EDT HEALTHCARE LAB Device ID [id number] 10/18/2024 7:24 PM EDT HEALTHCARE LAB Specimen Type POC Capillary 10/18/2024 7:24 PM EDT HEALTH[facility]ARE LAB Blood Capillary blood specimen / Unknown 10/18/2024 7:22 PM EDT 10/18/2024 7:24 PM EDT us Terrell Gautam MD LAB POINT OF CARE TE ST DOCKED DEVICE UNSOLICITED RESULTS Final Result Performing Organization Address City/[facility] Co de Phone Number [facility] [address] [place] [address] * (ABNORMAL) POCT glucose meter (10/18/2024 6:07 [...] Comment 10/18/2024 6:09 PM EDT HEALTHCARE LAB Damage Adjuster ID David Parks 10/18/2024 6:09 PM EDT HEALTHCARE LAB Device ID [id number] 10/18/2024 6:09 PM EDT HEALTHCARE LAB Specimen Type POC Capillary 10/18/2024 6:09 PM EDT [facility] Blood Capillary blood specimen / Unknown 10/18/2024 6:07 PM EDT 10/18/2024 6:09 PM EDT Terrell Gautam MD LAB POINT OF CARE TE ST DOCKED DEVICE UNSOLICITED RESULTS Final Result Performing Organization Address City/[facility] Co de Phone Number [facility] [address] [place] [address] * (ABNORMAL) POCT glucose meter (10/18/2024 11:56 AM EDT) Pathologist [facility] POCT Glucose 233(H) 74 - 99 [...] 10/21/2024 7:42 AM EDT [facility] Damage Adjuster ID Venessa Marcano 10/21/2024 7:42 AM EDT [facility] Device ID [id number] 10/21/2024 7:42 AM EDT HEALTHCARE LAB Specimen Type POC Capillary 10/21/2024 7:42 AM EDT HEALTHCARE LAB Blood Capillary blood specimen / Unknown 10/18/2024 11:56 AM EDT 10/21/2024 7:42 AM EDT us Terrell Gautam MD LAB POINT OF CARE TE ST DOCKED DEVICE UNSOLICITED RESULTS Final Result Performing Organization Address [facility] Co de Phone Number [facility] [address] [place] [address] * (ABNORMAL) POCT glucose meter (10/18/2024 9:24 AM EDT) [facility] POCT Glucose 322(H) 74 - 99 mg/dL [...] Comment 10/21/2024 7:42 AM EDT HEALTHCARE LAB Damage Adjuster ID Emilia Alonso 7:42 AM EDT HEALTHCARE LAB Device ID [id number] 10/21/2024 7:42 AM EDT HEALTHCARE LAB Specimen Type POC Venous 10/21/2024 7:42 AM EDT HEALTHCARE LAB Blood Venous blood specimen / Unknown 10/18/2024 9:24 AM EDT 10/21/2024 7:42 AM EDT us Terrell Gautam MD LAB POINT OF CARE TE ST DOCKED DEVICE UNSOLICITED RESULTS Final Result Performing Organization Address City/[facility] Co de Phone Number [facility] [address] [place] [address] * (ABNORMAL) POCT glucose meter (10/18/2024 7:36 [...] Comment 10/18/2024 7:38 AM EDT HEALTHCARE LAB Damage Adjuster ID Kizzy Godfrey 025 7:38 AM EDT HEALTHCARE LAB Device ID [id number] 10/18/2024 7:38 AM EDT [facility] Specimen Type POC Capillary 10/18/2024 7:38 AM EDT [facility] Blood Capillary blood specimen / Unknown 10/18/2024 7:36 AM EDT 10/18/2024 7:38 AM EDT us Terrell Gautam MD LAB POINT OF CARE TE ST DOCKED DEVICE UNSOLICITED RESULTS Final Result [facility]ARE [facility] [address] [place] [address] * (ABNORMAL) CBC (10/18/2024 2:09 AM EDT) [facility] WBC Count 16.71(H) 3.70 - 10.30 10*3/uL LAB HEMATOLOGY METHOD 10/18/2024 2:33 AM EDT [facility] RBC Count 2.78(L) 4.60 - 6.10 10*6/uL LAB HEMATOLOGY METHOD 10/18/2024 2:33 AM EDT [facility] HGB 8.5(L) 13.7 - 17.5 g/dL LAB HEMATOLOGY METHOD 10/18/2024 2:33 AM EDT [facility] HCT 25.7(L) 40.0 - 51.0 % LAB HEMATOLOGY METHOD 10/18/2024 2:33 AM EDT [facility] Platelet Count 324 155 - 369 10*3/uL LAB HEMATOLOGY METHOD 10/18/2024 2:33 AM EDT [facility] MCV 92 79 - 98 fL LAB HEMATOLOGY METHOD 10/18/2024 2:33 AM EDT [facility] MCH 30.6 26.0 - 32.0 pg LAB HEMATOLOGY METHOD 10/18/2024 2:33 AM EDT [facility] MCHC 33.1 30.7 - 35.5 g/dL LAB HEMATOLOGY METHOD 10/18/2024 2:33 AM EDT [facility] RDW 13.3 11.5 - 14.5 % LAB HEMATOLOGY METHOD 10/18/2024 2:33 AM EDT [facility] MPV 9.4 8.8 - 12.5 fL LAB HEMATOLOGY METHOD 10/18/2024 2:33 AM EDT [facility] nRBC 0.0 <=0.0 per 100 WBCs LAB HEMATOLOGY METHOD 10/18/2024 2:33 AM EDT [facility] Blood Venous blood specimen / Unknown Venipuncture / Unknown 10/18/2024 2:09 AM EDT 10/18/2024 2:25 AM EDT Nirmal uCeto MD LAB BLOOD ORDERABLES Final Result [facility] [address] [place] [address] * (ABNORMAL) Basic metabolic panel (10/18/2024 2:09 AM EDT) Glucose, Plasma 206(H) 74 - 99 mg/dL 10/18/2024 2:53 AM EDT [facility] BUN, Plasma 24(H) 8 - 23 mg/dL 10/18/2024 2:53 AM EDT [facility] Creatinine, Plasma 1.17 0.70 - 1.20 mg/dL 10/18/2024 2:53 AM EDT [facility] BUN/Creatinine Ratio 21 10/18/2024 2:53 AM EDT [facility] Sodium, Plasma 136 136 - 145 mmol/L 10/18/2024 2:53 AM EDT [facility] Potassium, Plasma 4.8 3.6 - 4.9 mmol/L 10/18/2024 2:53 AM EDT [facility] Chloride, Plasma 104 97 - 107 mmol/L 10/18/2024 2:53 AM EDT [facility] CO2, Plasma 22 22 - 29 mmol/L 10/18/2024 2:53 AM EDT [facility] Anion Gap 10 6 - 16 mmol/L 10/18/2024 2:53 AM EDT [facility] Total Calcium, Plasma 8.5(L) 8.9 - 10.2 mg/dL 10/18/2024 2:53 AM EDT [facility] eGFRcr 69.2 mL/min/1.7 3m*2 10/18/2024 2:53 AM EDT [facility] Comment:Reported eGFRcr in m L/min/1.73m2 is based the CKD-EPI 2020 equation that does not use a race coefficient. Blood Venous blood specimen / Unknown Venipuncture / Unknown 10/18/2024 2:09 AM EDT 10/18/2024 2:25 AM EDT Nirmal Cueto MD LAB BLOOD ORDERABLES Final Result Performing Organization Address City/[facility]/ZIP Co de Phone Number [facility] [address] [place] [address] * (ABNORMAL) Magnesium (10/18/2024 2:09 AM EDT) Magnesium, Plasma 1.8(L) 1.9 - 2.4 mg/dL 10/18/2024 2:53 AM EDT [facility] Blood Venous blood specimen / Unknown Venipuncture / Unknown 10/18/2024 2:09 AM EDT 10/18/2024 2:25 AM EDT Nirmal Cueto MD LAB BLOOD ORDERABLES Final Result [facility] [address] [place] [address] * Phosphorus (10/18/2024 2:09 AM EDT) Phosphorus, Plasma 3.7 2.5 - 4.5 mg/dL 10/18/2024 2:53 AM EDT [facility] Blood Venous blood specimen / Unknown Venipuncture / Unknown 10/18/2024 2:09 AM EDT 10/18/2024 2:25 AM EDT Nirmal Cueto MD LAB BLOOD ORDERABLES Final Result Performing Organization Address [facility] Co de Phone Number [facility] [address] [place] [address] * (ABNORMAL) Protime-INR (10/18/2024 2:09 AM EDT) Prothrombin Time 14.5(H) 12.0 - 14.3 sec LAB COAGULATION METHOD 10/18/2024 2:53 AM EDT [facility] INR 1.1 0.9 - 1.1 LAB COAGULATION METHOD 10/18/2024 2:53 AM EDT [facility] Blood Venous blood specimen / Unknown Venipuncture / Unknown 10/18/2024 2:09 AM EDT 10/18/2024 2:25 AM EDT Narrative [facility] - 10/18/2024 2:53 AM EDT OPTIMAL INR RANGES FOR PATIENT ON ORAL ANTICOAGULANT THERAPY Prevention of venous thromboembolism INR 2.0 to 3.0 In patients with heart disease: Atrial fibrillation INR 2.0 to 3.0 Valvular heart disease INR 2.0 to 3.0 Tissue heart valves INR 2.0 to 3.0 Mechanical prosthetic valves INR 2.5 to 3.5 Prevention of recurrent AK INR 2.5 to 3.5 Nirmal Cueto MD LAB BLOOD ORDERABLES Final Result Performing Organization Address [facility] Co de Phone Number [facility] [address] [place] [address] * (ABNORMAL) POCT glucose meter (10/18/2024 2:08 AM EDT) POCT Glucose 202(H) 74 - 99 mg/dL 10/18/2024 2:10 AM EDT [facility] Comment:Accuracy of a glucos e [...] Comment 10/18/2024 2:10 AM EDT [facility] Damage Adjuster ID Jourdan Grimes II 10/18/2024 2:10 AM EDT [facility] Device ID [id number] 10/18/2024 2:10 AM EDT [facility] Specimen Type POC Capillary 10/18/2024 2:10 AM EDT [facility] Blood Capillary blood specimen / Unknown 10/18/2024 2:08 AM EDT 10/18/2024 2:10 AM EDT us Terrell Gautam MD LAB POINT OF CARE TE ST DOCKED DEVICE UNSOLICITED RESULTS Final Result Performing Organization Address City/State/[facility] Phone Number [facility] [address] [place] [address] * (ABNORMAL) POCT glucose meter (10/17/2024 10:07 [...] Comment 10/17/2024 10:10 PM EDT [facility] Damage Adjuster ID Jourdan Grimes II 10/17/2024 10:10 PM EDT [facility] LAB Device ID [id number] 10/17/2024 10:10 PM EDT [facility] Specimen Type POC Capillary 10/17/2024 10:10 PM EDT [facility] Blood Capillary blood specimen / Unknown 10/17/2024 10:07 PM EDT 10/17/2024 10:10 PM EDT us Terrell Gautam MD LAB POINT OF CARE TE ST DOCKED DEVICE UNSOLICITED RESULTS Final Result Performing Organization Address City/State/[facility] Co de Phone Number [facility] [address] [place] [address] * (ABNORMAL) POCT glucose meter (10/17/2024 8:07 [...] Comment 10/17/2024 8:10 PM EDT [facility] Damage Adjuster ID Cornelio WALTERS Jourdan 10/17/2024 8:10 PM EDT [facility] LAB Device ID [id number] 10/17/2024 8:10 PM EDT [facility] Specimen Type POC Capillary 10/17/2024 8:10 PM EDT [facility] Blood Capillary blood specimen / Unknown 10/17/2024 8:07 PM EDT 10/17/2024 8:10 PM EDT Terrell Gautam MD LAB POINT OF CARE TE ST DOCKED DEVICE UNSOLICITED RESULTS Final Result Performing Organization Address [facility] Co de Phone Number [facility] [address] [place] [address] * (ABNORMAL) POCT glucose meter (10/17/2024 4:01 [...] 10/17/2024 4:03 PM EDT [facility] Damage Adjuster ID Chelsieamanda Keisha 10/17/2024 4:03 PM EDT [facility] Device ID [id number] 10/17/2024 4:03 PM EDT [facility] Specimen Type POC Capillary 10/17/2024 4:03 PM EDT [facility] Blood Capillary blood specimen / Unknown 10/17/2024 4:01 PM EDT 10/17/2024 4:03 PM EDT us Terrell Gautam MD LAB POINT OF CARE TE ST DOCKED DEVICE UNSOLICITED RESULTS Final Result Performing Organization Address City/[facility] Co de Phone Number [facility] [address] [place] [address] * (ABNORMAL) POCT glucose meter (10/17/2024 1:25 PM EDT) [facility] Signature POCT Glucose 225(H) 74 - 99 [...] 10/17/2024 1:27 PM EDT [facility] Damage Adjuster ID Kizzy Godfrey 025 1:27 PM EDT [facility] Device ID [id number] 10/17/2024 1:27 PM EDT [facility] Specimen Type POC Capillary 10/17/2024 1:27 PM EDT [facility] Blood Capillary blood specimen / Unknown 10/17/2024 1:25 PM EDT 10/17/2024 1:27 PM EDT us Terrell Gautam MD LAB POINT OF CARE TE ST DOCKED DEVICE UNSOLICITED RESULTS Final Result Performing Organization Address City/[facility] Co de Phone Number [facility] [address] [place] [address] * [place] Less than 1 Hour Intraoperative [...] Seconds 10/29/2024 7:28 AM EDT [facility] LAB Damage Adjuster ID Donna Mcmillan 10/29/2024 7:28 AM EDT [facility] ACT Device ID [id number] 10/29/2024 7:28 AM EDT [facility] Comment 10/29/2024 7:28 AM EDT [facility] Comment: ACT performed by [...] UNSOLICITED RESULTS Final Result Performing Organization Address City/[facility] de Phone Number [facility] [address] LAB [address] [place] [address] * (ABNORMAL) Blood gas, arterial (10/17/2024 11:48 AM EDT) pH, Arterial 7.34 7.31 - 7.42 LAB HEMATOLOGY METHOD 10/17/2024 11:54 AM EDT [facility] pCO2, Arterial 41 32 - 45 mmHg LAB HEMATOLOGY METHOD 10/17/2024 11:54 AM EDT [facility] pO2, Arterial 202 >80 mmHg LAB HEMATOLOGY METHOD 10/17/2024 11:54 AM EDT [facility] SO2, Measured, Arterial 100(H) 94 - 98 % LAB HEMATOLOGY METHOD 10/17/2024 11:54 AM EDT [facility] Base Excess, Arterial -3.2(L) -2.0 - 3.0 mmol/L LAB HEMATOLOGY METHOD 10/17/2024 11:54 AM EDT [facility] Bicarbonate, Calculated, Arterial 22 22 - 26 mmol/L LAB HEMATOLOGY METHOD 10/17/2024 11:54 AM EDT [facility] Hematocrit, Whole Blood 28.6(L) 40.0 - 51.0 % LAB HEMATOLOGY METHOD 10/17/2024 11:54 AM EDT [facility] Sodium, Whole Blood 137 136 - 145 mmol/L LAB HEMATOLOGY METHOD 10/17/2024 11:54 AM EDT [facility] Potassium, Whole Blood 4.5 3.6 - 4.9 mmol/L LAB HEMATOLOGY METHOD 10/17/2024 11:54 AM EDT [facility] Chloride, Whole Blood 112(H) 97 - 107 mmol/L LAB HEMATOLOGY METHOD 10/17/2024 11:54 AM EDT [facility] Glucose, Whole Blood 201(H) 74 - 99 mg/dL LAB HEMATOLOGY METHOD 10/17/2024 11:54 AM EDT [facility] Ionized Calcium, Whole Blood 4.8 4.6 - 5.1 mg/dL LAB HEMATOLOGY METHOD 10/17/2024 11:54 AM EDT [facility] Lactate, Arterial, Whole Blood 2.3(H) 0.5 - 1.6 mmol/L LAB HEMATOLOGY METHOD 10/17/2024 11:54 AM EDT [facility] Blood Arterial blood specimen / Unknown Arterial Puncture / Unknown 10/17/2024 11:48 AM EDT 10/17/2024 11:53 AM EDT us Jenna Lopez CRNA LAB BLOOD ORDERABLES Final Re sult [facility] [address] [place] [address] * POCT ACT (10/17/2024 11:41 AM EDT) ACT+ (HIGH RANGE) 175 68 - 600 Seconds 10/29/2024 7:28 AM EDT [facility] Damage Adjuster ID Oneyda Alicea 10/29/2024 7:28 AM EDT [facility] ACT Device ID [id number] 10/29/2024 7:28 AM EDT [facility] Comment 10/29/2024 7:28 AM EDT [facility] Comment: ACT performed by staff [...] UNSOLICITED RESULTS Final Result Performing Organization Address [facility] Co de Phone Number [facility]ALTH[facility]ARE LAB [address] LAB [address] [place] [address] * POCT ACT (10/17/2024 11:11 AM EDT) [facility] Signature ACT+ (HIGH RANGE) 252 68 - 600 Seconds 10/29/2024 7:28 AM EDT [facility] Damage Adjuster ID Donna Mcmillan 10/29/2024 7:28 AM EDT [facility] ACT Device ID [id number] 10/29/2024 7:28 AM EDT [facility] Comment 10/29/2024 7:28 AM EDT [facility] Comment: ACT performed by staff [...] UNSOLICITED RESULTS Final Result Performing Organization Address City/[facility] Co de Phone Number [facility] [address] LAB [address] [place] [address] * (ABNORMAL) Blood gas, arterial (10/17/2024 10:46 AM EDT) pH, Arterial 7.35 7.31 - 7.42 LAB HEMATOLOGY METHOD 10/17/2024 10:56 AM EDT [facility] pCO2, Arterial 42 32 - 45 mmHg LAB HEMATOLOGY METHOD 10/17/2024 10:56 AM EDT [facility] pO2, Arterial 161 >80 mmHg LAB HEMATOLOGY METHOD 10/17/2024 10:56 AM EDT [facility] SO2, Measured, Arterial 100(H) 94 - 98 % LAB HEMATOLOGY METHOD 10/17/2024 10:56 AM EDT [facility] Base Excess, Arterial -2.2(L) -2.0 - 3.0 mmol/L LAB HEMATOLOGY METHOD 10/17/2024 10:56 AM EDT [facility] Bicarbonate, Calculated, Arterial 23 22 - 26 mmol/L LAB HEMATOLOGY METHOD 10/17/2024 10:56 AM EDT [facility] Hematocrit, Whole Blood 29.9(L) 40.0 - 51.0 % LAB HEMATOLOGY METHOD 10/17/2024 10:56 AM EDT [facility] Sodium, Whole Blood 138 136 - 145 mmol/L LAB HEMATOLOGY METHOD 10/17/2024 10:56 AM EDT [facility] Potassium, Whole Blood 4.0 3.6 - 4.9 mmol/L LAB HEMATOLOGY METHOD 10/17/2024 10:56 AM EDT [facility] Chloride, Whole Blood 110(H) 97 - 107 mmol/L LAB HEMATOLOGY METHOD 10/17/2024 10:56 AM EDT [facility] Glucose, Whole Blood 174(H) 74 - 99 mg/dL LAB HEMATOLOGY METHOD 10/17/2024 10:56 AM EDT [facility] Ionized Calcium, Whole Blood 5.1 4.6 - 5.1 mg/dL LAB HEMATOLOGY METHOD 10/17/2024 10:56 AM EDT [facility] Lactate, Arterial, Whole Blood 1.4 0.5 - 1.6 mmol/L LAB HEMATOLOGY METHOD 10/17/2024 10:56 AM EDT [facility] Blood Arterial blood specimen / Unknown Arterial Puncture / Unknown 10/17/2024 10:46 AM EDT 10/17/2024 10:54 AM EDT us Jenna Munira Lopez MEDICINE TECHNOLOGIST LAB BLOOD ORDERABLES Final Re sult Performing Organization Address [facility] Co de Phone Number [facility] [address] [place] [address] * POCT ACT (10/17/2024 10:37 AM EDT) ACT+ (HIGH RANGE) 206 68 - 600 Seconds 10/29/2024 7:28 AM EDT [facility]ALTH[facility] LAB Damage Adjuster ID Donna Mcmillan 10/29/2024 7:28 AM EDT [facility] ACT Device ID [id number] 10/29/2024 7:28 AM EDT [facility] Comment 10/29/2024 7:28 AM EDT [facility] Comment: ACT performed by [...] UNSOLICITED RESULTS Final Result Performing Organization Address [facility] de Phone Number [facility] [address] [place] [address] * Surgical Pathology Exam (10/17/2024 10:27 AM EDT) Case Report Surgical Pathology Case: [id number] Authorizing Provider: Terrell Gautam MD Collected: 10/17/2024 1027 Ordering Location: [facility] A OPERATING ROOM Received: 10/17/2024 1325 Pathologist: Haydee Osborne MD Specimen: Other (specify site), left common femoral plaque 10/21/2024 10:16 AM EDT [facility] Final Diagnosis A. LEFT COMMON FEMORAL PLAQUE, EXCISION: - CALCIFIED PLAQUE 10/21/2024 10:16 AM EDT [facility] at 1016 EDT Clinical Information Critical limb ischemia of left lower extremity [I70.222] 10/21/2024 10:16 AM EDT [facility] Gross Description A. LEFT COMMON FEMORAL PLAQUE Received in formalin labeled l eft common femoral plaque , is one aggregate of red-gabriel hard portions of plaque measuring 3.7 x 2.5 x 0.9 cm. The specimen is serially sectioned and security systems sales representative sections are submitted in cassette A1. Cold Time: <1m Kenia Aceves 10/21/2024 10:16 AM EDT [facility] Note: A resident was involved in the service. I attest I examined the relevant preparations for the specimens and confirmed the diagnosis or interpretation. 10/21/2024 10:16 AM EDT [facility] Tissue Topography unknown / Unknown 10/17/2024 10:27 AM EDT 10/17/2024 1:25 PM EDT Comment:Pre-op diagnosis: Critical limb ischemia of left lower extremity [I70.222] us Terrell Gautam MD LAB PATHOLOGY ORDERABLES Gwen grimaldo Result [facility] [address] [place] [address] * POCT ACT (10/17/2024 10:03 AM EDT) ACT+ (HIGH RANGE) 244 68 - 600 Seconds 10/29/2024 7:28 AM EDT [facility] Damage Adjuster ID Donna Mcmillan 10/29/2024 7:28 AM EDT [facility]ALTH[facility] ACT Device ID [id number] 10/29/2024 7:28 AM EDT [facility] LAB Comment 10/29/2024 7:28 AM EDT [facility] Comment: ACT performed by [...] DOCKED DEVICE UNSOLICITED RESULTS Final Result [facility] [address] LAB [address] [place] [address] * (ABNORMAL) Blood gas, arterial (10/17/2024 9:45 AM EDT) pH, Arterial 7.37 7.31 - 7.42 LAB HEMATOLOGY METHOD 10/17/2024 9:55 AM EDT [facility] pCO2, Arterial 43 32 - 45 mmHg LAB HEMATOLOGY METHOD 10/17/2024 9:55 AM EDT [facility] pO2, Arterial 177 >80 mmHg LAB HEMATOLOGY METHOD 10/17/2024 9:55 AM EDT [facility] SO2, Measured, Arterial 100(H) 94 - 98 % LAB HEMATOLOGY METHOD 10/17/2024 9:55 AM EDT [facility] Base Excess, Arterial -0.5 -2.0 - 3.0 mmol/L LAB HEMATOLOGY METHOD 10/17/2024 9:55 AM EDT [facility] Bicarbonate, Calculated, Arterial 25 22 - 26 mmol/L LAB HEMATOLOGY METHOD 10/17/2024 9:55 AM EDT [facility] Hematocrit, Whole Blood 30.0(L) 40.0 - 51.0 % LAB HEMATOLOGY METHOD 10/17/2024 9:55 AM EDT [facility] Sodium, Whole Blood 137 136 - 145 mmol/L LAB HEMATOLOGY METHOD 10/17/2024 9:55 AM EDT [facility] Potassium, Whole Blood 4.3 3.6 - 4.9 mmol/L LAB HEMATOLOGY METHOD 10/17/2024 9:55 AM EDT [facility] Chloride, Whole Blood 108(H) 97 - 107 mmol/L LAB HEMATOLOGY METHOD 10/17/2024 9:55 AM EDT [facility] Glucose, Whole Blood 191(H) 74 - 99 mg/dL LAB HEMATOLOGY METHOD 10/17/2024 9:55 AM EDT [facility] Ionized Calcium, Whole Blood 5.0 4.6 - 5.1 mg/dL LAB HEMATOLOGY METHOD 10/17/2024 9:55 AM EDT [facility] Lactate, Arterial, Whole Blood 1.3 0.5 - 1.6 mmol/L LAB HEMATOLOGY METHOD 10/17/2024 9:55 AM EDT [facility] Blood Arterial blood specimen / Unknown Arterial Line / Unknown 10/17/2024 9:45 AM EDT 10/17/2024 9:52 AM EDT us Jenna Lopez CRNA LAB BLOOD ORDERABLES Final Re sult [facility] [address] [place] [address] * (ABNORMAL) Blood gas, arterial (10/17/2024 8:47 AM EDT) pH, Arterial 7.37 7.31 - 7.42 LAB HEMATOLOGY METHOD 10/17/2024 8:59 AM EDT [facility] pCO2, Arterial 43 32 - 45 mmHg LAB HEMATOLOGY METHOD 10/17/2024 8:59 AM EDT [facility] pO2, Arterial 205 >80 mmHg LAB HEMATOLOGY METHOD 10/17/2024 8:59 AM EDT [facility] SO2, Measured, Arterial 100(H) 94 - 98 % LAB HEMATOLOGY METHOD 10/17/2024 8:59 AM EDT [facility] Base Excess, Arterial -0.3 -2.0 - 3.0 mmol/L LAB HEMATOLOGY METHOD 10/17/2024 8:59 AM EDT [facility] Bicarbonate, Calculated, Arterial 25 22 - 26 mmol/L LAB HEMATOLOGY METHOD 10/17/2024 8:59 AM EDT [facility] Hematocrit, Whole Blood 31.3(L) 40.0 - 51.0 % LAB HEMATOLOGY METHOD 10/17/2024 8:59 AM EDT [facility] Sodium, Whole Blood 138 136 - 145 mmol/L LAB HEMATOLOGY METHOD 10/17/2024 8:59 AM EDT [facility] Potassium, Whole Blood 4.0 3.6 - 4.9 mmol/L LAB HEMATOLOGY METHOD 10/17/2024 8:59 AM EDT [facility] Chloride, Whole Blood 108(H) 97 - 107 mmol/L LAB HEMATOLOGY METHOD 10/17/2024 8:59 AM EDT [facility] Glucose, Whole Blood 162(H) 74 - 99 mg/dL LAB HEMATOLOGY METHOD 10/17/2024 8:59 AM EDT [facility] Ionized Calcium, Whole Blood 5.2(H) 4.6 - 5.1 mg/dL LAB HEMATOLOGY METHOD 10/17/2024 8:59 AM EDT [facility] Lactate, Arterial, Whole Blood 1.7(H) 0.5 - 1.6 mmol/L LAB HEMATOLOGY METHOD 10/17/2024 8:59 AM EDT [facility] Blood Arterial blood specimen / Unknown Arterial Puncture / Unknown 10/17/2024 8:47 AM EDT 10/17/2024 8:58 AM EDT us Jenna Lopez CRNA LAB BLOOD ORDERABLES Final Re sult [facility] [address] [place] [address] * POCT ACT (10/17/2024 8:46 AM EDT) ACT+ (HIGH RANGE) 101 68 - 600 Seconds 10/29/2024 7:28 AM EDT [facility] Damage Adjuster ID Donna Mcmillan 10/29/2024 7:28 AM EDT [facility] ACT Device ID [id number] 10/29/2024 7:28 AM EDT [facility] Comment 10/29/2024 7:28 AM EDT [facility] Comment: ACT performed by [...] RESULTS Final Result [facility] [address] LAB [address] [place] [address] * Type and Screen (10/17/2024 7:19 AM [...] ORDERAB LES Final Result Performing Organization Address [facility] Co de Phone Number BLOOD BANK [address] [place] [address] * (ABNORMAL) POCT glucose meter (10/17/2024 6:44 [...] 10/17/2024 6:49 AM EDT [facility] Damage Adjuster ID Hunter Burroughs 10/18/19 6:49 AM EDT [facility] Device ID [id number] 10/17/2024 6:49 AM EDT [facility] Specimen Type POC Capillary 10/17/2024 6:49 AM EDT [facility] Blood Capillary blood specimen / Unknown 10/17/2024 6:44 AM EDT 10/17/2024 6:49 AM EDT us Terrell Gautam MD LAB POINT OF CARE TE ST DOCKED DEVICE UNSOLICITED RESULTS Final Result [facility] [address] [place] [id number] documented in this encounter Visit Diagnoses Diagnosis [...] documented as of this encounter Care Teams Chef De Cuisine Relationship Specialty Start Date End Date Asad Victor MD [address] [place] [id number] PCP - General 10/07/22 documented as of this encounter
--- OUTSIDE RECORDS SUMMARY | 2024-11-05 21:45 | XMS_ITS | Encounter Summary ---
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 ASSESSMENTS [facility] 6-Click Daily Activities Help from Other: Don/Doff Regular Lower Body Clothings: None Help From Other: Bathing: None Help From Other: Toileting: None Help From Other: Don/Doff Upper Body Clothings: None Help From Other: Grooming: None Help From Other: Eating Meals: None [facility] 6 Click - Daily Activities Score: 24 [...] needed areas of treatment space. Level of Labette Interventions Grooming Modified independent Standing sinkside Pt [...] Note Bev Borja 64 y.o. male CSN: [id number] Admission: 11/05/2024 9:45 PM Primary Problem: Wound infection SW went to bedside to discuss placement options for modified OPAT. Per patient, ID stated he would be able to dc home with a PICC and home antibiotics. SW relayed message to team. Wound vac order sent to [facility] at for potential Monday discharge if patient does go home. SW will continue to follow and assist as needed. Mariia Macedo BUILDING CUSTODIAN * Progress Notes - Bianca Knight PharmD [...] from the original note were not included. [facility] Department of Surgery Division of Vascular Surgery Surgery Progress Note 11/08/24 Bev Borja Subjective Subjective: HPI 64yoM PMHx COPD, T2DM, HLD, HTN, RLS, CAD s/p PCI (on Xarelto) s/p pacemaker c/b left SANDIP pseudoaneurysm s/p thrombin injection 09/21/24, CLI s/p left femoral endarterectomy with EIA/TECHNICAL WRITING LEAD/MGR stenting 10/17/24, who presented to [facility] 11/05/2024 with wound infection. 11/06/24: L groin/thigh washout and debridement. No arterial involvement noted. Interval: NAEO. Cultures growing enterobacter. Changed abx vanco IV, cefepime IV, and metronidazolePO. Tolerating well. Abx therapy will be through modified OPAT. Transitioned to SSI and tolerating well. Dressings changed today. Edited by: Mleecio Echevarria DO at 11/08/2024 0717 Review of [...] MD Home meds Hold blood thinners Diabetes ([facility]) Overview Addendum 10/19/2021 10:41 AM by Giovanna [...] completed 10/19 Pseudoaneurysm of left femoral artery ([facility]) COPD (chronic obstructive pulmonary disease) ([facility]) Overview Signed 10/18/2021 7:30 PM by Gallo Gallardo MD Not on home inhalers A-fib ([facility]) Overview Addendum 10/19/2021 10:39 AM by Giovanna Junior APRN Hold anticoagulation Metoprolol restarted BPH (benign prostatic hyperplasia) Overview Addendum 10/19/2021 10:41 AM by Giovanna Junior APRN Flomax restarted Subarachnoid hemorrhage ([facility]) Overview Addendum 10/20/2021 8:23 AM by Giovanna Junior APRN Left frontal, right occipital NSGY consulted - Repeat CTH showing slight worsening of tSAH - no need for further imaging, will continue to follow clinically 10/20: spoke with NSGY via phone and stated to hold ASA and Xarelto for 2 weeks Closed compression fracture of L3 lumbar vertebra, initial encounter ([facility]) Overview Signed 10/18/2021 7:35 PM by Gallo [...] 09/21/24, CLI s/p left femoral endarterectomy with EIA/TECHNICAL WRITING LEAD/MGR stenting 10/17/24, who presented to [facility] 11/05/2024 with wound infection. POD [...] 1960 Age: 64 y.o. Patient has a Clinical Assoc: [employer] TECHNOLOGY ADMINISTRATOR-PM Remaining battery longevity adequate. Lead integrity test [...] recommendations. Supporting reports can be found in [employer] file. Micro: Susceptibility data from last 90 days. Collected Specimen Info Organism 11/06/24 Tissue from Other (specify site) Gram Negative Jesus 11/06/24 Swab from Other (specify site) Enterobacter cloacae complex Results Procedure Component Value Units Date/Time Fungal Culture, Routine [[id number]] Collected: 11/06/241127 Order Status: Completed Specimen: Swab from Other (specify site) Updated: 11/08/24 0919 Culture No Fungal Growth <1 Week Fungal Culture, Routine [[id number]] Collected: 11/06/241128 Order Status: Completed Specimen: Swab from Other (specify site) Updated: 11/08/24 0919 Culture No Fungal Growth <1 Week Fungal Culture, Tissue and ISIDRO [[id number]] Collected: 11/06/24 113 Order Status: Completed Specimen: Tissue from Other (specify site) Updated: 11/08/24 0912 Culture Reading Mycological 4 Weeks No Fungal Growth <1 Week ISIDRO No fungal elements seen Blood Culture (Aerobic/Anaerobet Set) [[id number]] Collected: 11/06/24106 Order Status: Completed Specimen: Blood from AC, Left Updated: 11/08/24 0302 Culture No growth at day 2 Blood Culture (Aerobic/Anaerobet Set) [[id number]] Collected: 11/06/24106 Order Status: Completed Specimen: Blood from Hand, Right Updated: 11/08/24 0302 Culture No growth at day 2 Tissue Culture and Gram Stain [[id number]] (Abnormal) Collected: 11/06/241133 Order Status: Completed Specimen: [...] in pairs Routine Culture and Gram Stain [[id number]] (Abnormal) Collected: 11/06/241128 Order Status: Completed Specimen: Swab from Other (specify site) Updated: 11/07/24 1426 Culture Moderate Growth Enterobacter cloacae complex Comment: This isolate has been identified using the FDA Approved MALDI Wickrer CA System The organism value for this result has been updated. These results have been appended to the previously preliminary verified report. Gram Stain Result No polymorphonuclear leukocytes seen No organisms seen AFB Culture, Non Respiratory Source and Acid Fast Stain [[id number]] Collected: 11/06/24 1134 Order Status: Completed Specimen: Tissue from Other (specify site) Updated: 11/07/24 1404 Acid Fast Stain No acid fast bacilli seen Routine Culture and Gram Stain [[id number]] Collected: 11/06/241127 Order Status: Completed Specimen: Swab from Other (specify site) Updated: 11/07/24 0855 Culture No growth at day 1 Gram Stain Result No organisms seen No polymorphonuclear leukocytes seen Anaerobic Culture [[id number]] Collected: 11/06/241127 Order Status: Sent Specimen: Swab from Other (specify site) Updated: 11/06/24 1220 Abscess Culture and Gram Stain [[id number]] Collected: 11/06/241127 Order Status: Canceled Specimen: Swab from Other (specify site) Updated: 11/06/24 1220 Anaerobic Culture [[id number]] Collected: 11/06/241128 Order Status: Sent Specimen: Swab from Other (specify site) Updated: 11/06/24 1219 Abscess Culture and Gram Stain [[id number]] Collected: 11/06/241128 Order Status: Canceled Specimen: Swab from Other (specify site) Updated: 11/06/24 121 Anaerobic Culture [[id number]] Collected: 11/06/241133 Order Status: Sent Specimen: Tissue [...] OSH. On 11/06, pt went to the [facility] vascular surgery for left groin exploration and [...] the time spent on the encounter was [id number] providing direct patient care, counseling for the patient/caregiver, and care coordination. [1] Current Facility-Administered Medications Medication Dose Route Frequency Provider Last Rate Last Admin acetaminophen (Tylenol) tablet 1,000 mg 1,000 mg Oral q6h [facility] Anthony Reyes MD 1,000 mg at 11/08/24 0520 aspirin chewable tablet 81 mg 81 mg Oral Daily Reid Daniels MD 81 mg at 11/08/24 0837 cefepime (Maxipime) 2 g in sodium chloride 0.9% 100 mL IVPB (vial adapter required) 2 g [id number] Reid Daniels MD 36.7 mL/hr at 11/08/24 [...] IV Access: pending Patient Specific Outpatient Circumstances: [address] [place] [address] Contact information Bev Borja [phone] (home) Extended Emergency Contact Information Primary Emergency Contact: Patti Hill Relation: Sister Binder Cutter Hand needed? No Outpatient services (including home infusion, [...] via secure chat or staff messaging in [employer]. OPAT Modified program for IV antimicrobial therapy [...] Note Bev Borja 64 y.o. male CSN: [id number] Admission: 11/05/2024 9:45 PM Primary Problem: Wound infection Can Handler reviewed chart and spoke with patient to complete this Initial Case Management Assessment. PCP: Asad Victor MD (Inactive) Dr. Palomo in [facility] Emergency Contact: Extended Emergency Contact Information Primary Emergency Contact: Patti Hill Relation: Sister Binder Cutter Hand needed? No Insurance: Primary Visit Coverage Payer Plan Sponsor Code Group Number Group Name [facility] MEDICARE UHC MEDICARE REPLACEMENT [id number] Primary Visit Coverage Subscriber Subscriber ID Subscriber Name Subscriber SSN Subscriber Address [id number] BEV BORJA [id number] [place] [address] Secondary Visit Coverage Payer Plan Sponsor Code Group Number Group Name AETNA [facility] MEDICAID AETNA [facility] Secondary Visit Coverage Subscriber Subscriber ID Subscriber Name Subscriber SSN Subscriber Address [id number] BEV BORJA [id number] [place] [address] Patient information: Primary Caregiver: Self Support System: Immediate family Daily Living Activities: Functional Status: Independent Living Arrangements: Alone Type of Residence: Private residence, Single Level [address] [place] [address] Current DME: Equipment Currently Used at Home: walker, rollator Income Information: Income Source: Disabled Income/Expense Information: Income meets expenses Current Resources Utilized: Food [place] Housing Circumstances-Z Codes: Housing Circumstances (select all [...] Dialysis Services: None Living Will/Advance Directive/Power of Nurse Administrator /Guardian: Have you reviewed your Advance Directive and is it valid for this stay?: No Advance Directive: Not applicable Information Provided on Healthcare Directives: No Pre-existing DNR/DNI Order: No Patient Requests Assistance: No Additional Comments: Patient is not medically ready for discharge. Patient uses [facility] for transportation and will need assistance with discharge transport. SW will continue to follow. Mariia Macedo BUILDING CUSTODIAN * Progress Notes - Melecio Echevarria DO - 11/07/2024 9:24 AM EDT Images from the original note were not included. [facility] Department of Surgery Division of Vascular Surgery Surgery Progress Note 11/07/24 Bev Borja Subjective Subjective: HPI 64yoM PMHx COPD, T2DM, HLD, HTN, RLS, CAD s/p PCI (on Xarelto) s/p pacemaker c/b left SANDIP pseudoaneurysm s/p thrombin injection 09/21/24, CLI s/p left femoral endarterectomy with EIA/TECHNICAL WRITING LEAD/MGR stenting 10/17/24, who presented to [facility] 11/05/2024 with wound infection. 11/06/24: [...] completed 10/19 Pseudoaneurysm of left femoral artery ([facility]) COPD (chronic obstructive pulmonary disease) ([facility]) Overview Signed 10/18/2021 7:30 PM by Gallo Gallardo MD Not on home inhalers A-fib ([facility]) Overview Addendum 10/19/2021 10:39 AM by Giovanna Junior APRN Hold anticoagulation Metoprolol restarted BPH (benign prostatic hyperplasia) Overview Addendum 10/19/2021 10:41 AM by Giovanna Junior APRN Flomax restarted Subarachnoid hemorrhage ([facility]) Overview Addendum 10/20/2021 8:23 AM by Giovanna Junior APRN Left frontal, right occipital NSGY consulted - Repeat CTH showing slight worsening of tSAH - no need for further imaging, will continue to follow clinically 10/20: spoke with NSGY via phone and stated to hold ASA and Xarelto for 2 weeks Closed compression fracture of L3 lumbar vertebra, initial encounter ([facility]) Overview Signed 10/18/2021 7:35 PM by Gallo [...] 09/21/24, CLI s/p left femoral endarterectomy with EIA/TECHNICAL WRITING LEAD/MGR stenting 10/17/24, who presented to [facility] 11/05/2024 with wound infection. POD [...] Edited by: Melecio Echevarria DO at 11/07/2024 0915 Dispo: Continue Current Level of Care Melecio [...] from the original note were not included. [facility] Department of Surgery Division of Vascular [...] of breath, nausea and vomiting. Pain Control: [facility]. Currently well controlled. Objective: Vitals: Vitals: [...] Diet: Regular Anticoagulation/DVT ppx: Held Pain management: [facility] Level of care: Continue Current Level of Care I have answered and addressed all issues and concerns from the patient and nursing staff. I have notified senior resident/attending person investigator with any issues or concerns. Melecio Echevarria [...] Agree with above assessment and evaluation from resident/BELT OPERATOR. * Consults - Oscar Appiah MD [...] findings. Cardiac Device Check - PRE-OR [facility]: Pre-operative CIED Report Assessment and Sara-Procedural Reommendations: Name: Bev Borja Date: 10/17/2024 : 1960 Age: 64 y.o. Patient has a Clinical Assoc: Berger TECHNOLOGY ADMINISTRATOR-PM Remaining battery longevity adequate. Lead integrity test [...] Procedure Component Value Units Date/Time Anaerobic Culture [[id number]] Collected: 11/06/241127 Order Status: Sent Specimen: Swab from Other (specify site) Updated: 11/06/241219 Fungal Culture, Routine [[id number]] Collected: 11/06/241127 Order Status: Sent Specimen: Swab from Other (specify site) Updated: 11/06/24 122 Routine Culture and Gram Stain [[id number]] Collected: 11/06/241127 Order Status: Sent Specimen: Swab from Other (specify site) Updated: 11/06/241219 Abscess Culture and Gram Stain [[id number]] Collected: 11/06/241127 Order Status: Canceled Specimen: Swab from Other (specify site) Updated: 11/06/241219 Anaerobic Culture [[id number]] Collected: 11/06/241128 Order Status: Sent Specimen: Swab from Other (specify site) Updated: 11/06/24 121 Fungal Culture, Routine [[id number]] Collected: 11/06/241128 Order Status: Sent Specimen: Swab from Other (specify site) Updated: 11/06/241218 Routine Culture and Gram Stain [[id number]] Collected: 11/06/241128 Order Status: Sent Specimen: Swab from Other (specify site) Updated: 11/06/241218 Abscess Culture and Gram Stain [[id number]] Collected: 11/06/241128 Order Status: Canceled Specimen: Swab from Other (specify site) Updated: 11/06/241218 Anaerobic Culture [[id number]] Collected: 11/06/241133 Order Status: Sent Specimen: Tissue from Other (specify site) Updated: 11/06/241217 Tissue Culture and Gram Stain [[id number]] Collected: 11/06/241133 Order Status: Sent Specimen: Tissue from Other (specify site) Updated: 11/06/241217 AFB Culture, Non Respiratory Source and Acid Fast Stain [[id number]] Collected: 11/06/241133 Order Status: Sent Specimen: Tissue from Other (specify site) Updated: 11/06/241217 Fungal Culture, Tissue and ISIDRO [[id number]] Collected: 11/06/24 1134 Order Status: Sent Specimen: Tissue from Other (specify site) Updated: 11/06/24 1218 Blood Culture (Aerobic/Anaerobet Set) [[id number]] Collected: 11/06/24106 Order Status: Completed Specimen: Blood from AC, Left Updated: 11/06/24402 Culture Culture in lab Blood Culture (Aerobic/Anaerobet Set) [[id number]] Collected: 11/06/24106 Order Status: Completed Specimen: Blood [...] OSH. On 11/06, pt went to the [facility] vascular surgery for left groin exploration and [...] the time spent on the encounter was [id number] providing direct patient care, counseling for the patient/caregiver, and care coordination. [1] Past Medical History: Diagnosis Date Arthritis Old myocardial infarction History of myocardial infarction [2] Past Surgical History: Procedure Laterality Date ANKLE SURGERY Right CARDIAC PACEMAKER PLACEMENT CAROTID ENDARTERECTOMY N/A 2017 Endarterectomy Carotid Artery from [employer] Safety Step CORONARY ANGIOPLASTY Left Coronary Angiography With Concomitant Left Heart Catheterization from [employer] Safety Step CORONARY ARTERY BYPASS GRAFT N/A 2018 3V ELBOW SURGERY Right ENDARTERECTOMY Left 10/17/2024 common/SFA/Profunda thromboendarterectomy, EIA/TECHNICAL WRITING LEAD/MGR stent HERNIA REPAIR KNEE ARTHROSCOPY Left VASCULAR SURGERY Left 09/21/2024 TECHNICAL WRITING LEAD/MGR pseudoaneurym injection [3] Family History Problem Relation [...] tablet 1,000 mg 1,000 mg Oral q6h [facility] Anthony Reyes MD 1,000 mg at [...] 10 mg 10 mg Oral Daily Jerry Holcmob MD [Transfer Hold] methocarbamol (Robaxin) tablet 500 mg 500 mg Oral 4x daily Anthnoy Reyes MD 500 mg at 11/06/24137 [Transfer [...] Note Bev Borja 64 y.o. male CSN: [id number] Admission: 11/05/2024 9:45 PM Primary Problem: Wound infection Patient in OR today. SW will continue to follow. Mariia Macedo BUILDING CUSTODIAN * Op Note - Jerry Holcomb MD - 11/06/2024 11:23 AM EDT Operative Note Date: 11/06/24 Location: [facility] Name: Bev Borja, : 1960, Diagnoses: Pre-op Diagnosis Surgical wound infection Post-op Diagnosis Surgical wound infection Procedure(s): Excisional debridement left groin (skin, subcutaneous tissue. Final measurements 10 x 7 x 6.5 cm) Excisional debridement left thigh (skin, subcutaneous tissue. Final measurements 8 x 2 x 3 cm) Attending Surgeon(s): * Nathaly Nowak - Primary Wind Energy Engineer(s): * Luna Beckett MD - Resident [...] from the original note were not included. [facility] Department of Surgery Division of Vascular Surgery History & Physical Note Reason for Consult: Wound infection Requesting Service: Emergency Department Consult Date and Time: Consult to Vascular Surgery - Surg Red Consult performed by: Anthony Reyse MD Consult ordered by: Jose G Henderson [...] RLS who presented to the [facility] on 11/05/2024 with problems with his [...] times a day with meals. 10/19/24 Dandy aBltazar MD lisinopril 10 MG tablet Take 1 [...] presented to [facility] with wound infection. He has [...] restarted once verified. Plan: - Admit to [facility] - NPO, mIVF - Vanc/Zosyn, Blood [...] ENDARTERECTOMY N/A 2017 Endarterectomy Carotid Artery from [employer] Safety Step CORONARY ANGIOPLASTY Left Coronary Angiography With Concomitant Left Heart Catheterization from [employer] Safety Step CORONARY ARTERY BYPASS GRAFT N/A 2018 3V ELBOW SURGERY Right ENDARTERECTOMY Left 10/17/2024 common/SFA/Profunda thromboendarterectomy, EIA/TECHNICAL WRITING LEAD/MGR stent HERNIA REPAIR KNEE ARTHROSCOPY Left VASCULAR SURGERY Left 09/21/2024 TECHNICAL WRITING LEAD/MGR pseudoaneurym injection [4] Family History Problem Relation [...] Correction - Standard Dose 0-5 UnitsSubcutaneous q6h [facility] Anthony Reyes MD 2 Units at [...] baseline. Psychiatric: Mood and Affect: Mood normal. [place] Coma Scale Score: 15 ED Course & [...] to inpatient Once Acknowledged ANTHONY REYES 11/05/24 9097 Consult to Vascular Surgery - Surg Red Once Specialty: Vascular Surgery Provider: (Not yet assigned) Completed [facility] ED Course as of 11/06/24612Nov 05, 2024 2311 On initial evaluation, patient is hemodynamically stable. Patient has history of traumatic left lower extremity TECHNICAL WRITING LEAD/MGR pseudoaneurysm s/p repair on 10/17 with Vascular [...] None Disposition Admit Admitting/Attending Physician: NATHALY NOWAK [[id number]] Provider Care Team: [facility] 2 [168] Are they the primary team?: Yes [1] - [1] Past Medical History: Diagnosis Date Arthritis Old myocardial infarction History of myocardial infarction [2] Past Surgical History: Procedure Laterality Date ANKLE SURGERY Right CARDIAC PACEMAKER PLACEMENT CAROTID ENDARTERECTOMY N/A 2017 Endarterectomy Carotid Artery from [employer] Safety Step CORONARY ANGIOPLASTY Left Coronary Angiography With Concomitant Left Heart Catheterization from [employer] Safety Step CORONARY ARTERY BYPASS GRAFT N/A 2018 3V ELBOW SURGERY Right ENDARTERECTOMY Left 10/17/2024 common/SFA/Profunda thromboendarterectomy, EIA/TECHNICAL WRITING LEAD/MGR stent HERNIA REPAIR KNEE ARTHROSCOPY Left VASCULAR SURGERY Left 09/21/2024 TECHNICAL WRITING LEAD/MGR pseudoaneurym injection [3] Family History Problem Relation [...] marijuana, 1-2 blunts/day [5] No Known Allergies Crio Alexander MD Resident 11/06/24612 Cosigned by Jose [...] [facility] [address] [place] [address] 11/26/2024 2:30 PM EDT Hospital Encounter [facility] [address] [place] [address] 11/26/2024 3:20 PM EDT Office Visit [facility] [address] [place] [address] Elisabet Schuster, GLENDA [address] [place] [address] 11/29/2024 2:30 PM EDT Office Visit [facility] [address] [place] [address] Oscar Appiah MD [address] [place] [address] Pending Results Name Type Priority [...] until 05/18/2026 Discharge Ambulatory referral to NON [facility] Outpatient Referral Routine Pseudoaneurysm of left [...] UNSOLICITED RESULTS Routine 11/13/2024 5:16 PM EDT [facility] NEGATIVE PRESSURE WOUND THERAPY DME </= 50 [...] UNSOLICITED RESULTS Routine 11/11/2024 5:20 PM EDT [place] NEGATIVE PRESSURE WOUND THERAPY DME >50 SQ [...] POCT glucose meter (11/14/2024 11:56 AM EDT) [facility] POCT Glucose 225(H) 74 - 99 mg/dL [...] Comment 11/14/2024 11:57 AM EDT [facility]ALTH[facility]ARE [facility] Labor And Employment Paralegal ID Estefani Sheth 11/14/2024 11:57 AM EDT HEALTHCARE LAB Device ID [id number] 11/14/2024 11:57 AM EDT HEALTHCARE LAB Specimen Type POC Capillary 11/14/2024 11:57 AM EDT HEALTHCARE LAB Blood Capillary blood specimen / Unknown 11/14/2024 11:56 AM EDT 11/14/2024 11:57 AM EDT Nathaly Nowak MD LAB POINT OF CARE TE ST DOCKED DEVICE UNSOLICITED RESULTS Final Result Performing Organization Address City/State/RUST Co de Phone Number HEALTHCARE LAB [address] [place] [address] * (ABNORMAL) POCT glucose meter (11/14/2024 8:05 AM EDT) [facility] POCT Glucose 150(H) 74 - 99 mg/dL [...] 11/14/2024 8:06 AM EDT [facility] Labor And Employment Paralegal ID Estefani Sheth 11/14/2024 8:06 AM EDT HEALTHCARE LAB Device ID [id number] 11/14/2024 8:06 AM EDT HEALTHCARE LAB Specimen Type POC Capillary 11/14/2024 8:06 AM EDT HEALTHCARE LAB Blood Capillary blood specimen / Unknown 11/14/2024 8:05 AM EDT 11/14/2024 8:06 AM EDT Nathaly Nowak MD LAB POINT OF CARE TE ST DOCKED DEVICE UNSOLICITED RESULTS Final Result Performing Organization Address City/[facility] de Phone Number [facility] [address] [place] [address] * (ABNORMAL) POCT glucose meter (11/14/2024 3:53 [...] for testing. Comment 11/14/2024 3:55 AM EDT [facility] Labor And Employment Paralegal ID Nelda Gerber 11/15/19 3:55 AM EDT HEALTHCARE LAB Device ID [id number] 11/14/2024 3:55 AM EDT [facility] Specimen Type POC Capillary 11/14/2024 3:55 AM EDT [facility] Blood Capillary blood specimen / Unknown 11/14/2024 3:53 AM EDT 11/14/2024 3:55 AM EDT Nathaly Nowak MD LAB POINT OF CARE TE ST DOCKED DEVICE UNSOLICITED RESULTS Final Result Performing Organization Address City/[facility]/[place] Co de Phone Number [facility] [address] [place] [address] * (ABNORMAL) POCT glucose meter (11/13/2024 8:55 [...] Comment 11/13/2024 9:01 PM EDT [facility]ARE [facility] Labor And Employment Paralegal ID Nelda Gerber 11/14/19 9:01 PM EDT [facility]ARE LAB Device ID [id number] 11/13/2024 9:01 PM EDT [facility] Specimen Type POC Capillary 11/13/2024 9:01 PM EDT [facility] Blood Capillary blood specimen / Unknown 11/13/2024 8:55 PM EDT 11/13/2024 9:01 PM EDT Nathaly Nowak MD LAB POINT OF CARE TE ST DOCKED DEVICE UNSOLICITED RESULTS Final Result Performing Organization Address City/State/[place] Co de Phone Number [facility] [address] [place] [address] * (ABNORMAL) POCT glucose meter (11/13/2024 5:16 PM EDT) [facility] POCT Glucose 149(H) 74 - 99 mg/dL [...] Comment 11/13/2024 5:17 PM EDT HEALTHCARE LAB Labor And Employment Paralegal ID Estefani Sheth 11/13/2024 5:17 PM EDT HEALTHCARE LAB Device ID [id number] 11/13/2024 5:17 PM EDT HEALTHCARE LAB Specimen Type POC Capillary 11/13/2024 5:17 PM EDT [facility]ALTH[facility] LAB Blood Capillary blood specimen / Unknown 11/13/2024 5:16 PM EDT 11/13/2024 5:17 PM EDT Nathaly Nowak MD LAB POINT OF CARE TE ST DOCKED DEVICE UNSOLICITED RESULTS Final Result [facility] [address] [place] [id number] * [place] NEGATIVE PRESSURE WOUND THERAPY DME </= 50 [...] Comment 11/13/2024 12:00 PM EDT [facility]ALTHCARE LAB Labor And Employment Paralegal ID Estefani Sheth 11/13/2024 12:00 PM EDT HEALTHCARE LAB Device ID [id number] 11/13/2024 12:00 PM EDT HEALTHCARE LAB Specimen Type POC Capillary 11/13/2024 12:00 PM EDT [facility] Blood Capillary blood specimen / Unknown 11/13/2024 11:58 AM EDT 11/13/2024 12:00 PM EDT Nathaly Nowak MD LAB POINT OF CARE TE ST DOCKED DEVICE UNSOLICITED RESULTS Final Result Performing Organization Address [facility]/[place] Co de Phone Number [facility] [address] [place] [address] * (ABNORMAL) POCT glucose meter (11/13/2024 8:23 AM EDT) POCT Glucose 195(H) 74 - 99 mg/dL 11/13/2024 8:24 AM EDT [employer] [facility] Comment:Accuracy of a glucos e result [...] for testing. Comment 11/13/2024 8:24 AM EDT [facility] Labor And Employment Paralegal ID Estefani Sheth 11/13/2024 8:24 AM EDT [employer] LAB Device ID [id number] 11/13/2024 8:24 AM EDT [facility] Specimen Type POC Capillary 11/13/2024 8:24 AM EDT [facility] Blood Capillary blood specimen / Unknown 11/13/2024 8:23 AM EDT 11/13/2024 8:24 AM EDT Result [facility] Nathaly Nowak MD LAB POINT OF CARE TE ST DOCKED DEVICE UNSOLICITED RESULTS Final Result Performing Organization Address City/[facility]/[place] Co de Phone Number [facility] [address] [place] [address] * (ABNORMAL) Phosphorus, Plasma (11/13/2024 6:37 AM EDT) Phosphorus, Plasma 1.7(L) 2.5 - 4.5 mg/dL 11/13/2024 7:16 AM EDT [facility] Blood Venous blood specimen / Unknown Venipuncture / Unknown 11/13/2024 6:37 AM EDT 11/13/2024 6:44 AM EDT Result [facility] Nathaly Nowak MD LAB BLOOD ORDERABLES Final Resu lt [facility] [address] [place] [address] * Magnesium, Plasma (11/13/2024 6:37 AM EDT) Pathologist [facility] Magnesium, Plasma 2.0 1.9 - 2.4 mg/dL 11/13/2024 7:16 AM EDT [facility] Blood Venous blood specimen / Unknown Venipuncture / Unknown 11/13/2024 6:37 AM EDT 11/13/2024 6:44 AM EDT us Nathaly Nowak MD LAB BLOOD ORDERABLES Final Resu lt Performing Organization Address City/[facility]/ZIP Co de Phone Number [facility] [address] [place] [address] * (ABNORMAL) CBC W/O Differential (11/13/2024 6:37 AM EDT) Pathologist [facility] WBC Count 11.72(H) 3.70 - 10.30 10*3/uL LAB HEMATOLOGY METHOD 11/13/2024 6:51 AM EDT [facility] RBC Count 2.88(L) 4.60 - 6.10 10*6/uL LAB HEMATOLOGY METHOD 11/13/2024 6:51 AM EDT [facility] HGB 8.5(L) 13.7 - 17.5 g/dL LAB HEMATOLOGY METHOD 11/13/2024 6:51 AM EDT [facility] HCT 26.4(L) 40.0 - 51.0 % LAB HEMATOLOGY METHOD 11/13/2024 6:51 AM EDT [facility] Platelet Count 398(H) 155 - 369 10*3/uL LAB HEMATOLOGY METHOD 11/13/2024 6:51 AM EDT [facility] MCV 92 79 - 98 fL LAB HEMATOLOGY METHOD 11/13/2024 6:51 AM EDT [facility] MCH 29.5 26.0 - 32.0 pg LAB HEMATOLOGY METHOD 11/13/2024 6:51 AM EDT [facility] MCHC 32.2 30.7 - 35.5 g/dL LAB HEMATOLOGY METHOD 11/13/2024 6:51 AM EDT [facility] RDW 13.6 11.5 - 14.5 % LAB HEMATOLOGY METHOD 11/13/2024 6:51 AM EDT [facility] MPV 8.9 8.8 - 12.5 fL LAB HEMATOLOGY METHOD 11/13/2024 6:51 AM EDT [facility] nRBC 0.0 <=0.0 per 100 WBCs LAB HEMATOLOGY METHOD 11/13/2024 6:51 AM EDT [facility] Blood Venous blood specimen / Unknown Venipuncture / Unknown 11/13/2024 6:37 AM EDT 11/13/2024 6:44 AM EDT us Nathaly Nowak MD LAB BLOOD ORDERABLES Final Resu lt [facility] [address] [place] [address] * (ABNORMAL) Basic Metabolic Panel, Plasma (11/13/2024 6:37 AM EDT) Glucose, Plasma 200(H) 74 - 99 mg/dL 11/13/2024 7:16 AM EDT [facility] BUN, Plasma 10 8 - 23 mg/dL 11/13/2024 7:16 AM EDT [facility] Creatinine, Plasma 0.68(L) 0.70 - 1.20 mg/dL 11/13/2024 7:16 AM EDT [facility] BUN/Creatinine Ratio 15 11/13/2024 7:16 AM EDT [facility] Sodium, Plasma 135(L) 136 - 145 mmol/L 11/13/2024 7:16 AM EDT [facility] Potassium, Plasma 3.9 3.6 - 4.9 mmol/L 11/13/2024 7:16 AM EDT [facility] Chloride, Plasma 107 97 - 107 mmol/L 11/13/2024 7:16 AM EDT [facility] CO2, Plasma 21(L) 22 - 29 mmol/L 11/13/2024 7:16 AM EDT [facility] Anion Gap 7 6 - 16 mmol/L 11/13/2024 7:16 AM EDT [facility] Total Calcium, Plasma 8.1(L) 8.9 - 10.2 mg/dL 11/13/2024 7:16 AM EDT [facility] eGFRcr 103.2 mL/min/1.7 3m*2 11/13/2024 7:16 AM EDT [facility] Comment:Reported eGFRcr in m L/min/1.73m2 is based the CKD-EPI 2020 equation that does not use a race coefficient. Blood Venous blood specimen / Unknown Venipuncture / Unknown 11/13/2024 6:37 AM EDT 11/13/2024 6:44 AM EDT us Nathaly Nowak MD LAB BLOOD ORDERABLES Final Resu lt Performing Organization Address City/[facility]/ZIP Co de Phone Number [facility] [address] [place] [address] * (ABNORMAL) POCT glucose meter (11/12/2024 8:27 PM EDT) [facility] POCT Glucose 175(H) 74 - 99 mg/dL [...] Comment 11/12/2024 8:29 PM EDT [facility]ALTHCARE LAB Labor And Employment Paralegal ID Nelda Gerber 11/13/19 8:29 PM EDT HEALTHCARE LAB Device ID [id number] 11/12/2024 8:29 PM EDT HEALTHCARE LAB Specimen Type POC Capillary 11/12/2024 8:29 PM EDT [facility]ALTH[facility]ARE LAB Blood Capillary blood specimen / Unknown 11/12/2024 8:27 PM EDT 11/12/2024 8:29 PM EDT us Nathaly Nowak MD LAB POINT OF CARE TE ST DOCKED DEVICE UNSOLICITED RESULTS Final Result [facility] [address] [place] [address] * (ABNORMAL) POCT glucose meter (11/12/2024 5:08 PM EDT) [facility] POCT Glucose 157(H) 74 - 99 mg/dL [...] 11/12/2024 5:10 PM EDT [facility] Labor And Employment Paralegal ID Wade Feliciano 5:10 PM EDT [facility] Device ID [id number] 11/12/2024 5:10 PM EDT [facility] Specimen Type POC Capillary 11/12/2024 5:10 PM EDT [facility] Blood Capillary blood specimen / Unknown 11/12/2024 5:08 PM EDT 11/12/2024 5:10 PM EDT Nathaly Nowak MD LAB POINT OF CARE TE ST DOCKED DEVICE UNSOLICITED RESULTS Final Result [facility] [address] [place] [address] * (ABNORMAL) POCT glucose meter (11/12/2024 12:36 PM EDT) [facility] POCT Glucose 224(H) 74 - 99 mg/dL [...] 11/12/2024 12:38 PM EDT [facility] Labor And Employment Paralegal ID Wade Feliciano 12:38 PM EDT [facility] Device ID [id number] 11/12/2024 12:38 PM EDT [facility] Specimen Type POC Capillary 11/12/2024 12:38 PM EDT [facility] Blood Capillary blood specimen / Unknown 11/12/2024 12:36 PM EDT 11/12/2024 12:38 PM EDT Nathaly Nowak MD LAB POINT OF CARE TE ST DOCKED DEVICE UNSOLICITED RESULTS Final Result Performing Organization Address City/[facility]/ZIP Co de Phone Number [facility] [address] [place] [address] * Clostridiodes (Clostridium) difficile PCR (11/12/2024 9:50 AM EDT) C difficile PCR toxin B gene DNA Result Not Detected Not Detected 11/12/2024 11:54 AM EDT [facility] Stool Rectum structure / Unknown Non-blood Collection / Unknown 11/12/2024 9:50 AM EDT 11/12/2024 10:04 AM EDT Narrative [facility] - 11/12/2024 11:54 [...] ATIYA FRITZ Final Result Performing Organization Address City/[facility]/ZIP Co de Phone Number [facility] [address] [place] [address] * Comprehensive GI Panel by PCR (11/12/2024 9:50 AM EDT) Campylobacter PCR Result Not Detected Not Detected 11/12/2024 2:47 PM EDT [facility] Plesiomonas shigelloides PCR Result Not Detected Not Detected 11/12/2024 2:47 PM EDT [facility] Salmonella PCR Result Not Detected Not Detected 11/12/2024 2:47 PM EDT [facility] Vibrio species PCR Result Not Detected Not Detected 11/12/2024 2:47 PM EDT [facility] Vibrio cholerae PCR Result Not Detected Not Detected 11/12/2024 2:47 PM EDT [facility] Yersinia enterocolitica PCR Result Not Detected Not Detected 11/12/2024 2:47 PM EDT [facility] Enteroaggregative E. coli (EAEC) PCR Result Not Detected Not Detected 11/12/2024 2:47 PM EDT [facility] Enteropathogenic E. coli (EPEC) PCR Result Not Detected Not Detected 11/12/2024 2:47 PM EDT [facility] Enterotoxigenic E. coli (ETEC) lt/st PCR Result Not Detected Not Detected 11/12/2024 2:47 PM EDT [facility] Shiga-like Toxin-Producing E.coli (STEC) stx1/stx2 PCR Resu Not Detected Not Detected 11/12/2024 2:47 PM EDT [facility] E coli 0157 PCR Result Not Detected Not Detected 11/12/2024 2:47 PM EDT [facility] Shigella/Enteroinvas tam E. coli (EIEC) PCR Result Not Detected Not Detected 11/12/2024 2:47 PM EDT [facility] Cryptosporidium PCR Result Not Detected Not Detected 11/12/2024 2:47 PM EDT [facility] Cyclospora cayetanensis PCR Result Not Detected Not Detected 11/12/2024 2:47 PM EDT [facility] Entamoeba histolytica PCR Result Not Detected Not Detected 11/12/2024 2:47 PM EDT [facility] Giardia duodenalis (aka Giardia lamblia) PCR Result Not Detected Not Detected 11/12/2024 2:47 PM EDT [facility] Adenovirus F 40/41 PCR Result Not Detected Not Detected 11/12/2024 2:47 PM EDT [facility] Astrovirus PCR Result Not Detected Not Detected 11/12/2024 2:47 PM EDT [facility] Norovirus GI/GII PCR Result Not Detected Not Detected 11/12/2024 2:47 PM EDT [facility] Rotavirus A PCR Result Not Detected Not Detected 11/12/2024 2:47 PM EDT [facility] Sapovirus PCR Result Not Detected Not Detected 11/12/2024 2:47 PM EDT [facility] Stool Rectum structure / Unknown Non-blood Collection / Unknown 11/12/2024 9:50 AM EDT 11/12/2024 10:04 AM EDT Narrative [facility] - 11/12/2024 2:47 [...] clinically indicated. Nathaly Nowak MD LAB MICROBIOLOGY [facility] Final Result [facility] [address] [place] [address] * C-reactive protein (11/12/2024 9:48 AM EDT) CRP, Plasma <3.0 <=8.0 mg/L 11/12/2024 10:28 AM EDT [facility] Blood Venous blood specimen / Unknown Venipuncture / Unknown 11/12/2024 9:48 AM EDT 11/12/2024 9:59 AM EDT Narrative [facility] - 11/12/2024 10:28 AM EDT This CRP test is appropriate for assessment of infection, systemic inflammation and/or tissue injury. To assess cardiovascular disease risk order high sensitivity CRP (CRPH). us Nathaly Nowak MD LAB BLOOD ORDERABLES Final Resu lt Performing Organization Address City/[facility]/ZIP Co de Phone Number [facility] [address] [place] [address] * (ABNORMAL) POCT glucose meter (11/12/2024 8:20 AM EDT) [facility] POCT Glucose 138(H) 74 - 99 mg/dL [...] Comment 11/12/2024 8:21 AM EDT [facility]ALTHCARE LAB Labor And Employment Paralegal ID Wade Feliciano 8:21 AM EDT [employer] [facility] Device ID [id number] 11/12/2024 8:21 AM EDT [facility] Specimen Type POC Capillary 11/12/2024 8:21 AM EDT [facility] Blood Capillary blood specimen / Unknown 11/12/2024 8:20 AM EDT 11/12/2024 8:21 AM EDT Nathaly Nowak MD LAB POINT OF CARE TE ST DOCKED DEVICE UNSOLICITED RESULTS Final Result Performing Organization Address [facility]/[place] Co de Phone Number [facility] [address] [place] [address] * (ABNORMAL) POCT glucose meter (11/11/2024 8:18 PM EDT) [facility] POCT Glucose 248(H) 74 - 99 mg/dL [...] Comment 11/11/2024 8:20 PM EDT [facility] LAB Labor And Employment Paralegal ID Nelda Gerber 11/12/19 8:20 PM EDT [facility]ALTH[facility]ARE LAB Device ID [id number] 11/11/2024 8:20 PM EDT [facility] Specimen Type POC Capillary 11/11/2024 8:20 PM EDT [facility] Blood Capillary blood specimen / Unknown 11/11/2024 8:18 PM EDT 11/11/2024 8:20 PM EDT Nathaly Nowak MD LAB POINT OF CARE TE ST DOCKED DEVICE UNSOLICITED RESULTS Final Result Performing Organization Address City/[facility]/ZIP Co de Phone Number [facility] [address] [place] [address] * (ABNORMAL) POCT glucose meter (11/11/2024 5:59 [...] 11/11/2024 6:01 PM EDT [facility] Labor And Employment Paralegal ID Wade Feliciano 6:01 PM EDT HEALTHCARE LAB Device ID [id number] 11/11/2024 6:01 PM EDT [facility] LAB Specimen Type POC Capillary 11/11/2024 6:01 PM EDT [facility] Blood Capillary blood specimen / Unknown 11/11/2024 5:59 PM EDT 11/11/2024 6:01 PM EDT Nathaly Nowak MD LAB POINT OF CARE TE ST DOCKED DEVICE UNSOLICITED RESULTS Final Result Performing Organization Address City/[facility]/ZIP Co de Phone Number [facility] [address] [place] [address] * POCT glucose meter (11/11/2024 5:20 PM [...] Comment 11/11/2024 5:22 PM EDT [facility] Labor And Employment Paralegal ID Wade Feliciano 5:22 PM EDT [facility] LAB Device ID [id number] 11/11/2024 5:22 PM EDT [facility] Specimen Type POC Capillary 11/11/2024 5:22 PM EDT [facility] Blood Capillary blood specimen / Unknown 11/11/2024 5:20 PM EDT 11/11/2024 5:22 PM EDT Nathaly Nowak MD LAB POINT OF CARE TE ST DOCKED DEVICE UNSOLICITED RESULTS Final Result Performing Organization Address City/State/[place] Co de Phone Number [facility] [address] [place] [address] * [place] NEGATIVE PRESSURE WOUND THERAPY DME >50 SQ [...] Comment 11/11/2024 12:10 PM EDT [facility]ALTHCARE LAB Labor And Employment Paralegal ID Wade Feliciano 12:10 PM EDT [employer] [facility] Device ID [id number] 11/11/2024 12:10 PM EDT [facility]ALTH[facility]ARE LAB Specimen Type POC Capillary 11/11/2024 12:10 PM EDT [facility] Blood Capillary blood specimen / Unknown 11/11/2024 12:08 PM EDT 11/11/2024 12:10 PM EDT us Nathaly Nowak MD LAB POINT OF CARE TE ST DOCKED DEVICE UNSOLICITED RESULTS Final Result Performing Organization Address City/State/[place] Co de Phone Number [facility] [address] [place] [address] * (ABNORMAL) POCT glucose meter (11/11/2024 9:08 [...] 11/11/2024 9:09 AM EDT [facility] Labor And Employment Paralegal ID Wade Feliciano 9:09 AM EDT [employer] [facility] LAB Device ID [id number] 11/11/2024 9:09 AM EDT HEALTHCARE LAB Specimen Type POC Capillary 11/11/2024 9:09 AM EDT [facility] Blood Capillary blood specimen / Unknown 11/11/2024 9:08 AM EDT 11/11/2024 9:09 AM EDT Nathaly Nowak MD LAB POINT OF CARE TE ST DOCKED DEVICE UNSOLICITED RESULTS Final Result Performing Organization Address City/[facility]/ZIP Co de Phone Number [facility] [address] [place] [address] * POCT glucose meter (11/11/2024 8:27 AM EDT) POCT Glucose 87 74 - 99 mg/dL 11/11/2024 8:28 AM EDT [employer] [facility] Comment:Accuracy of a glucos e result [...] for testing. Comment 11/11/2024 8:28 AM EDT [facility] [facility] Labor And Employment Paralegal ID Wade Feliciano 8:28 AM EDT [employer] [facility] Device ID [id number] 11/11/2024 8:28 AM EDT [facility] Specimen Type POC Capillary 11/11/2024 8:28 AM EDT [facility] Blood Capillary blood specimen / Unknown 11/11/2024 8:27 AM EDT 11/11/2024 8:28 AM EDT Nathaly Nowak MD LAB POINT OF CARE TE ST DOCKED DEVICE UNSOLICITED RESULTS Final Result Performing Organization Address City/[facility]/ZIP Co de Phone Number [facility] [address] [place] [address] * (ABNORMAL) Basic Metabolic Panel, Plasma (11/11/2024 1:12 AM EDT) Glucose, Plasma 122(H) 74 - 99 mg/dL 11/11/2024 1:12 AM EDT [facility] BUN, Plasma 10 8 - 23 mg/dL 11/11/2024 1:12 AM EDT [facility] Creatinine, Plasma 0.82 0.70 - 1.20 mg/dL 11/11/2024 1:12 AM EDT [facility] BUN/Creatinine Ratio 12 11/11/2024 1:12 AM EDT [facility] Sodium, Plasma 137 136 - 145 mmol/L 11/11/2024 1:12 AM EDT [facility] Potassium, Plasma 3.9 3.6 - 4.9 mmol/L 11/11/2024 1:12 AM EDT [facility] Chloride, Plasma 110(H) 97 - 107 mmol/L 11/11/2024 1:12 AM EDT [facility] CO2, Plasma 20(L) 22 - 29 mmol/L 11/11/2024 1:12 AM EDT [facility] Anion Gap 7 6 - 16 mmol/L 11/11/2024 1:12 AM EDT [facility] Total Calcium, Plasma 7.6(L) 8.9 - 10.2 mg/dL 11/11/2024 1:12 AM EDT [facility] eGFRcr 97.5 mL/min/1.7 3m*2 11/11/2024 1:12 AM EDT [facility] Comment:Reported eGFRcr in m L/min/1.73m2 is based the CKD-EPI 2020 equation that does not use a race coefficient. Blood Venous blood specimen / Unknown 11/11/2024 12:42 AM EDT us Nathaly Nowak MD LAB BLOOD ORDERABLES Final Resu lt [facility] [address] [place] [address] * (ABNORMAL) CBC W/O Differential (11/11/2024 12:56 AM EDT) WBC Count 11.83(H) 3.70 - 10.30 10*3/uL LAB HEMATOLOGY METHOD 11/11/2024 12:56 AM EDT [facility] RBC Count 2.97(L) 4.60 - 6.10 10*6/uL LAB HEMATOLOGY METHOD 11/11/2024 12:56 AM EDT [facility] HGB 8.9(L) 13.7 - 17.5 g/dL LAB HEMATOLOGY METHOD 11/11/2024 12:56 AM EDT [facility] HCT 27.2(L) 40.0 - 51.0 % LAB HEMATOLOGY METHOD 11/11/2024 12:56 AM EDT [facility] Platelet Count 444(H) 155 - 369 10*3/uL LAB HEMATOLOGY METHOD 11/11/2024 12:56 AM EDT [facility] MCV 92 79 - 98 fL LAB HEMATOLOGY METHOD 11/11/2024 12:56 AM EDT [facility] MCH 30.0 26.0 - 32.0 pg LAB HEMATOLOGY METHOD 11/11/2024 12:56 AM EDT [facility] MCHC 32.7 30.7 - 35.5 g/dL LAB HEMATOLOGY METHOD 11/11/2024 12:56 AM EDT [facility] RDW 13.3 11.5 - 14.5 % LAB HEMATOLOGY METHOD 11/11/2024 12:56 AM EDT [facility] MPV 9.0 8.8 - 12.5 fL LAB HEMATOLOGY METHOD 11/11/2024 12:56 AM EDT [facility] nRBC 0.0 <=0.0 per 100 WBCs LAB HEMATOLOGY METHOD 11/11/2024 12:56 AM EDT [facility] Blood Venous blood specimen / Unknown 11/11/2024 12:42 AM EDT us Nathaly Nowak MD LAB BLOOD ORDERABLES Final Resu lt [facility] [address] [place] [address] * (ABNORMAL) POCT glucose meter (11/10/2024 8:25 PM EDT) Pathologist [facility] POCT Glucose 144(H) 74 - 99 mg/dL 11/10/2024 8:28 PM EDT [facility] Comment:Accuracy of a glucos e [...] Comment 11/10/2024 8:28 PM EDT HEALTHCARE LAB Labor And Employment Paralegal ID Nelda Gerber 11/11/19 8:28 PM EDT [facility] Device ID [id number] 11/10/2024 8:28 PM EDT [facility] Specimen Type POC Capillary 11/10/2024 8:28 PM EDT [facility]ALTH[facility]ARE [facility] Blood Capillary blood specimen / Unknown 11/10/2024 8:25 PM EDT 11/10/2024 8:28 PM EDT Nathaly Nowak MD LAB POINT OF CARE TE ST DOCKED DEVICE UNSOLICITED RESULTS Final Result Performing Organization Address City/[facility]/[place] Co de Phone Number [facility] [address] [place] [address] * (ABNORMAL) POCT glucose meter (11/10/2024 4:45 PM EDT) [facility] POCT Glucose 155(H) 74 - 99 mg/dL [...] Comment 11/10/2024 4:47 PM EDT [facility]ALTHCARE LAB Labor And Employment Paralegal ID Esperanza Parks 11/10/2024 4:47 PM EDT HEALTHCARE LAB Device ID [id number] 11/10/2024 4:47 PM EDT [facility]ALTH[facility]ARE LAB Specimen Type POC Capillary 11/10/2024 4:47 PM EDT [facility] Blood Capillary blood specimen / Unknown 11/10/2024 4:45 PM EDT 11/10/2024 4:47 PM EDT us Nathaly Nowak MD LAB POINT OF CARE TE ST DOCKED DEVICE UNSOLICITED RESULTS Final Result [facility] [address] [place] [address] * (ABNORMAL) POCT glucose meter (11/10/2024 12:13 [...] Comment 11/10/2024 12:14 PM EDT [facility]ALTHCARE LAB Labor And Employment Paralegal ID Esperanza Parks 11/10/2024 12:14 PM EDT HEALTHCARE LAB Device ID [id number] 11/10/2024 12:14 PM EDT HEALTHCARE LAB Specimen Type POC Capillary 11/10/2024 12:14 PM EDT [facility] Blood Capillary blood specimen / Unknown 11/10/2024 12:13 PM EDT 11/10/2024 12:14 PM EDT Nathaly Nowak MD LAB POINT OF CARE TE ST DOCKED DEVICE UNSOLICITED RESULTS Final Result Performing Organization Address City/[facility]/ZIP Co de Phone Number [facility] [address] [place] [address] * Vancomycin, Peak, Plasma Please draw ~2 hours after 0800 dose of vancomycin finishes infusing. Consider obtaining level via peripheral stick. If peripheral stick is not feasible, please ensure that line is flushed well prior to drawing level. Than... (11/10/2024 10:56 AM EDT) Pathologist [facility] Vancomycin, Peak, Plasma 23.8 20.0 - 40.0 ug/mL 11/10/2024 11:25 AM EDT [facility] Blood Venous blood specimen / Unknown Venipuncture / Unknown 11/10/2024 10:56 AM EDT 11/10/2024 11:00 AM EDT Narrative [facility] - 11/10/2024 11:25 AM EDT Therapeutic Peak level: 20-40ug/mL Supra-therapeutic Peak level: >40 ug/mL us Abigail Seay MD LAB BLOOD ORDERABLES Final Res ult Performing Organization Address [facility]/[employer] de Phone Number [facility] [address] [place] [address] * (ABNORMAL) POCT glucose meter (11/10/2024 8:03 [...] Comment 11/10/2024 8:04 AM EDT [facility] [employer] Paralegal ID Esperanza Parks 11/10/2024 8:04 AM EDT [facility] Device ID [id number] 11/10/2024 8:04 AM EDT [facility] Specimen Type POC Capillary 11/10/2024 8:04 AM EDT [facility] Blood Capillary blood specimen / Unknown 11/10/2024 8:03 AM EDT 11/10/2024 8:04 AM EDT us Nathaly Nowak MD LAB POINT OF CARE TE ST DOCKED DEVICE UNSOLICITED RESULTS Final Result Performing Organization Address [facility] Co de Phone Number HEALTHCARE LAB [address] [place] [address] * Vancomycin, Trough, Plasma Please draw ~30 minutes prior to dose due at 0800 on 11/10. Please do NOThold dose awaiting level to return. Consider obtaining level via peripheral stick. If peripheral stick is not feasible, please ensure that line is... (11/10/2024 7:27 AM EDT) Vancomycin, Trough, Plasma 16.2 10.0 - 20.0 ug/mL 11/10/2024 8:24 AM EDT [facility] Blood Venous blood specimen / Unknown Venipuncture / Unknown 11/10/2024 7:27 AM EDT 11/10/2024 7:51 AM EDT [facility] - 11/10/2024 8:24 AM EDT Therapeutic Trough level: 10-20ug/mL Supra-therapeutic Trough level: >20 ug/mL us Abigail Seay MD LAB BLOOD ORDERABLES Final Res ult [facility] [address] [place] [address] * (ABNORMAL) CBC and Differential (11/10/2024 12:31 AM EDT) WBC Count 10.80(H) 3.70 - 10.30 10*3/uL LAB HEMATOLOGY METHOD 11/10/2024 12:53 AM EDT [facility] RBC Count 3.06(L) 4.60 - 6.10 10*6/uL LAB HEMATOLOGY METHOD 11/10/2024 12:53 AM EDT [facility] HGB 9.1(L) 13.7 - 17.5 g/dL LAB HEMATOLOGY METHOD 11/10/2024 12:53 AM EDT [facility] HCT 28.0(L) 40.0 - 51.0 % LAB HEMATOLOGY METHOD 11/10/2024 12:53 AM EDT [facility] Platelet Count 501(H) 155 - 369 10*3/uL LAB HEMATOLOGY METHOD 11/10/2024 12:53 AM EDT [facility] MCV 92 79 - 98 fL LAB HEMATOLOGY METHOD 11/10/2024 12:53 AM EDT [facility] MCH 29.7 26.0 - 32.0 pg LAB HEMATOLOGY METHOD 11/10/2024 12:53 AM EDT [facility] MCHC 32.5 30.7 - 35.5 g/dL LAB HEMATOLOGY METHOD 11/10/2024 12:53 AM EDT [facility] RDW 13.2 11.5 - 14.5 % LAB HEMATOLOGY METHOD 11/10/2024 12:53 AM EDT [facility] MPV 8.8 8.8 - 12.5 fL LAB HEMATOLOGY METHOD 11/10/2024 12:53 AM EDT [facility] nRBC 0.0 <=0.0 per 100 WBCs LAB HEMATOLOGY METHOD 11/10/2024 12:53 AM EDT [facility] Differential Type Automated LAB HEMATOLOGY METHOD 11/10/2024 12:53 AM EDT [facility] Neutrophils % 77 % LAB HEMATOLOGY METHOD 11/10/2024 12:53 AM EDT [facility] Lymphocytes % 13 % LAB HEMATOLOGY METHOD 11/10/2024 12:53 AM EDT [facility] Monocytes % 8 % LAB HEMATOLOGY METHOD 11/10/2024 12:53 AM EDT [facility] Eosinophils % 1 % LAB HEMATOLOGY METHOD 11/10/2024 12:53 AM EDT [facility] Basophils % 0 % LAB HEMATOLOGY METHOD 11/10/2024 12:53 AM EDT [facility] Immature Granulocytes % 1 % LAB HEMATOLOGY METHOD 11/10/2024 12:53 AM EDT [facility] Neutrophils Absolute 8.32(H) 1.60 - 6.10 10*3/uL LAB HEMATOLOGY METHOD 11/10/2024 12:53 AM EDT [facility] Lymphocytes Absolute 1.40 1.20 - 3.90 10*3/uL LAB HEMATOLOGY METHOD 11/10/2024 12:53 AM EDT [facility] Monocytes Absolute 0.89 0.30 - 0.90 10*3/uL LAB HEMATOLOGY METHOD 11/10/2024 12:53 AM EDT [facility] Eosinophils Absolute 0.09 0.00 - 0.50 10*3/uL LAB HEMATOLOGY METHOD 11/10/2024 12:53 AM EDT [facility] Basophils Absolute 0.04 0.00 - 0.10 10*3/uL LAB HEMATOLOGY METHOD 11/10/2024 12:53 AM EDT [facility] Immature Granulocytes Absolute 0.06 0.00 - 0.06 10*3/uL LAB HEMATOLOGY METHOD 11/10/2024 12:53 AM EDT [facility] Blood Venous blood specimen / Unknown Venipuncture / Unknown 11/10/2024 12:31 AM EDT 11/10/2024 12:37 AM EDT Narrative [facility] - 11/10/2024 12:53 AM EDT Therapeutic decision making should be based on absolute values, rather than percentages. us Nathaly Nowak MD LAB BLOOD ORDERABLES Final Resu lt [facility] [address] [place] [address] * (ABNORMAL) Comprehensive Metabolic Panel, Plasma (11/10/2024 12:31 AM EDT) Glucose, Plasma 185(H) 74 - 99 mg/dL 11/10/2024 1:05 AM EDT [facility] BUN, Plasma 9 8 - 23 mg/dL 11/10/2024 1:05 AM EDT [facility] Creatinine, Plasma 0.72 0.70 - 1.20 mg/dL 11/10/2024 1:05 AM EDT [facility] BUN/Creatinine Ratio 13 11/10/2024 1:05 AM EDT [facility] Sodium, Plasma 135(L) 136 - 145 mmol/L 11/10/2024 1:05 AM EDT [facility] Potassium, Plasma 4.0 3.6 - 4.9 mmol/L 11/10/2024 1:05 AM EDT [facility] Chloride, Plasma 106 97 - 107 mmol/L 11/10/2024 1:05 AM EDT [facility] CO2, Plasma 19(L) 22 - 29 mmol/L 11/10/2024 1:05 AM EDT [facility] Anion Gap 10 6 - 16 mmol/L 11/10/2024 1:05 AM EDT [facility] Total Calcium, Plasma 7.8(L) 8.9 - 10.2 mg/dL 11/10/2024 1:05 AM EDT [facility] Total Protein 5.6(L) 6.3 - 7.9 g/dL 11/10/2024 1:05 AM EDT [facility] Albumin, Plasma 3.1(L) 3.5 - 5.2 g/dL 11/10/2024 1:05 AM EDT [facility] AST, Plasma 33 10 - 50 U/L 11/10/2024 1:05 AM EDT [facility] ALT, Plasma 25 10 - 50 U/L 11/10/2024 1:05 AM EDT [facility] Alkaline Phosphatase, Plasma 108 40 - 115 U/L 11/10/2024 1:05 AM EDT [facility] Total Bilirubin, Plasma <0.2(L) 0.2 - 1.1 mg/dL 11/10/2024 1:05 AM EDT [facility] eGFRcr 101.4 mL/min/1.7 3m*2 11/10/2024 1:05 AM EDT [facility] Comment:Reported eGFRcr in m L/min/1.73m2 is based the CKD-EPI 2020 equation that does not use a race coefficient. Blood Venous blood specimen / Unknown Venipuncture / Unknown 11/10/2024 12:31 AM EDT 11/10/2024 12:37 AM EDT us Nathaly Nowak MD LAB BLOOD ORDERABLES Final Resu lt [facility] [address] [place] [address] * (ABNORMAL) POCT glucose meter (11/09/2024 8:04 [...] Comment 11/09/2024 8:06 PM EDT [facility] Labor And Employment Paralegal ID Maximiliano Hansen II 11/09/2024 8:06 PM EDT HEALTH[facility]ARE LAB Device ID [id number] 11/09/2024 8:06 PM EDT [facility]ARE [facility] Specimen Type POC Capillary 11/09/2024 8:06 PM EDT [facility] Blood Capillary blood specimen / Unknown 11/09/2024 8:04 PM EDT 11/09/2024 8:06 PM EDT Nathaly Nowak MD LAB POINT OF CARE TE ST DOCKED DEVICE UNSOLICITED RESULTS Final Result Performing Organization Address [facility] de Phone Number HEALTHCARE LAB [address] [place] [address] * (ABNORMAL) POCT glucose meter (11/09/2024 4:36 PM EDT) [facility] POCT Glucose 166(H) 74 - 99 mg/dL [...] Comment 11/09/2024 4:38 PM EDT [facility]ALTH[facility]ARE LAB Labor And Employment Paralegal ID Kristian Sosa 11/09/2024 4:38 PM EDT HEALTHCARE LAB Device ID [id number] 11/09/2024 4:38 PM EDT [facility]ARE LAB Specimen Type POC Capillary 11/09/2024 4:38 PM EDT [facility] Blood Capillary blood specimen / Unknown 11/09/2024 4:36 PM EDT 11/09/2024 4:38 PM EDT Nathaly Nowak MD LAB POINT OF CARE TE ST DOCKED DEVICE UNSOLICITED RESULTS Final Result Performing Organization Address City/[facility] Co de Phone Number [facility] [address] [place] [address] * PICC SINGLE LUMEN ([employer] LINK) (11/09/2024 1:11 PM EDT) Narrative Estefani Barraza RN - 11/09/2024 1:11 PM EDT Estefani Barraza RN 11/09/2024 1:12 PM Insert PICC line Date/Time: 11/09/2024 1:11 PM Performed by: Estefani Barraza RN Authorized by: Nathaly Nowak MD Cyrus Protocol: Verbal consent obtained?: Yes Written consent [...] selection rationale: Left pacemaker Catheter Lot #: [id number] Catheter mobile game engineer: Socialtyze Catheter placed: Single lumen Catheter size: 4 Fr Catheter trimmed length: 42 Catheter threaded length: 42 Vein placed in: SVC Catheter cm indwellin Catheter cm outside: 0 Placement confirmed by: Shoozy 3CG technology Pre-procedure: Landmarks identified Ultrasound guidance: [...] - 99 mg/dL 11/09/2024 11:51 AM EDT [facility] Comment:Accuracy of a glucos e result [...] Comment 11/09/2024 11:51 AM EDT HEALTHCARE LAB Labor And Employment Paralegal Kristian Greco 11/09/2024 11:51 AM EDT HEALTHCARE LAB Device ID [id number] 11/09/2024 11:51 AM EDT [facility]ALTHCARE LAB Specimen Type POC Capillary 11/09/2024 11:51 AM EDT [facility] Blood Capillary blood specimen / Unknown 11/09/2024 11:50 AM EDT 11/09/2024 11:51 AM EDT Nathaly Nowak MD LAB POINT OF CARE TE ST DOCKED DEVICE UNSOLICITED RESULTS Final Result Performing Organization Address City/[facility]/ZIP Co de Phone Number [facility]CARE LAB [address] [place] [address] * (ABNORMAL) POCT glucose meter (11/09/2024 8:14 [...] Comment 11/09/2024 8:15 AM EDT [facility]ARE LAB Labor And Employment Paralegal Kristian Greco 11/09/2024 8:15 AM EDT HEALTHCARE LAB Device ID [id number] 11/09/2024 8:15 AM EDT [facility]ALTH[facility]ARE LAB Specimen Type POC Capillary 11/09/2024 8:15 AM EDT [facility] Blood Capillary blood specimen / Unknown 11/09/2024 8:14 AM EDT 11/09/2024 8:15 AM EDT Nathaly Nowak MD LAB POINT OF CARE TE ST DOCKED DEVICE UNSOLICITED RESULTS Final Result Performing Organization Address City/[facility]/ZIP Co de Phone Number [facility]ALTHCARE LAB [address] [place] [address] * (ABNORMAL) CBC and Differential (11/09/2024 4:15 AM EDT) WBC Count 10.27 3.70 - 10.30 10*3/uL LAB HEMATOLOGY METHOD 11/09/2024 4:26 AM EDT [facility] RBC Count 3.14(L) 4.60 - 6.10 10*6/uL LAB HEMATOLOGY METHOD 11/09/2024 4:26 AM EDT [facility] HGB 9.2(L) 13.7 - 17.5 g/dL LAB HEMATOLOGY METHOD 11/09/2024 4:26 AM EDT [facility] HCT 28.3(L) 40.0 - 51.0 % LAB HEMATOLOGY METHOD 11/09/2024 4:26 AM EDT [facility] Platelet Count 468(H) 155 - 369 10*3/uL LAB HEMATOLOGY METHOD 11/09/2024 4:26 AM EDT [facility] MCV 90 79 - 98 fL LAB HEMATOLOGY METHOD 11/09/2024 4:26 AM EDT [facility] MCH 29.3 26.0 - 32.0 pg LAB HEMATOLOGY METHOD 11/09/2024 4:26 AM EDT [facility] MCHC 32.5 30.7 - 35.5 g/dL LAB HEMATOLOGY METHOD 11/09/2024 4:26 AM EDT [facility] RDW 13.1 11.5 - 14.5 % LAB HEMATOLOGY METHOD 11/09/2024 4:26 AM EDT [facility] MPV 8.7(L) 8.8 - 12.5 fL LAB HEMATOLOGY METHOD 11/09/2024 4:26 AM EDT [facility] nRBC 0.0 <=0.0 per 100 WBCs LAB HEMATOLOGY METHOD 11/09/2024 4:26 AM EDT [facility] Differential Type Automated LAB HEMATOLOGY METHOD 11/09/2024 4:26 AM EDT [facility] Neutrophils % 77 % LAB HEMATOLOGY METHOD 11/09/2024 4:26 AM EDT [facility] Lymphocytes % 13 % LAB HEMATOLOGY METHOD 11/09/2024 4:26 AM EDT [facility] Monocytes % 8 % LAB HEMATOLOGY METHOD 11/09/2024 4:26 AM EDT [facility] Eosinophils % 1 % LAB HEMATOLOGY METHOD 11/09/2024 4:26 AM EDT [facility] Basophils % 0 % LAB HEMATOLOGY METHOD 11/09/2024 4:26 AM EDT [facility] Immature Granulocytes % 1 % LAB HEMATOLOGY METHOD 11/09/2024 4:26 AM EDT [facility] Neutrophils Absolute 7.97(H) 1.60 - 6.10 10*3/uL LAB HEMATOLOGY METHOD 11/09/2024 4:26 AM EDT [facility] Lymphocytes Absolute 1.32 1.20 - 3.90 10*3/uL LAB HEMATOLOGY METHOD 11/09/2024 4:26 AM EDT [facility] Monocytes Absolute 0.83 0.30 - 0.90 10*3/uL LAB HEMATOLOGY METHOD 11/09/2024 4:26 AM EDT [facility] Eosinophils Absolute 0.07 0.00 - 0.50 10*3/uL LAB HEMATOLOGY METHOD 11/09/2024 4:26 AM EDT [facility] Basophils Absolute 0.03 0.00 - 0.10 10*3/uL LAB HEMATOLOGY METHOD 11/09/2024 4:26 AM EDT [facility] Immature Granulocytes Absolute 0.05 0.00 - 0.06 10*3/uL LAB HEMATOLOGY METHOD 11/09/2024 4:26 AM EDT [facility] Blood Venous blood specimen / Unknown Venipuncture / Unknown 11/09/2024 4:15 AM EDT 11/09/2024 4:18 AM EDT Narrative [facility] - 11/09/2024 4:26 AM EDT Therapeutic decision making should be based on absolute values, rather than percentages. us Nathaly Nowak MD LAB BLOOD ORDERABLES Final Resu lt [facility] [address] [place] [address] * (ABNORMAL) Comprehensive Metabolic Panel, Plasma (11/09/2024 4:15 AM EDT) Glucose, Plasma 171(H) 74 - 99 mg/dL 11/09/2024 4:47 AM EDT [facility] BUN, Plasma 9 8 - 23 mg/dL 11/09/2024 4:47 AM EDT [facility] Creatinine, Plasma 0.67(L) 0.70 - 1.20 mg/dL 11/09/2024 4:47 AM EDT [facility] BUN/Creatinine Ratio 13 11/09/2024 4:47 AM EDT [facility] Sodium, Plasma 134(L) 136 - 145 mmol/L 11/09/2024 4:47 AM EDT [facility] Potassium, Plasma 4.1 3.6 - 4.9 mmol/L 11/09/2024 4:47 AM EDT [facility] Chloride, Plasma 104 97 - 107 mmol/L 11/09/2024 4:47 AM EDT [facility] CO2, Plasma 21(L) 22 - 29 mmol/L 11/09/2024 4:47 AM EDT [facility] Anion Gap 9 6 - 16 mmol/L 11/09/2024 4:47 AM EDT [facility] Total Calcium, Plasma 8.4(L) 8.9 - 10.2 mg/dL 11/09/2024 4:47 AM EDT [facility] Total Protein 5.8(L) 6.3 - 7.9 g/dL 11/09/2024 4:47 AM EDT [facility] Albumin, Plasma 3.2(L) 3.5 - 5.2 g/dL 11/09/2024 4:47 AM EDT [facility] AST, Plasma 18 10 - 50 U/L 11/09/2024 4:47 AM EDT [facility] ALT, Plasma 17 10 - 50 U/L 11/09/2024 4:47 AM EDT [facility] Alkaline Phosphatase, Plasma 110 40 - 115 U/L 11/09/2024 4:47 AM EDT [facility] Total Bilirubin, Plasma <0.2(L) 0.2 - 1.1 mg/dL 11/09/2024 4:47 AM EDT [facility] eGFRcr 103.6 mL/min/1.7 3m*2 11/09/2024 4:47 AM EDT [facility] Comment:Reported eGFRcr in m L/min/1.73m2 is based the CKD-EPI 2020 equation that does not use a race coefficient. Blood Venous blood specimen / Unknown Venipuncture / Unknown 11/09/2024 4:15 AM EDT 11/09/2024 4:18 AM EDT Nathaly Nowak MD LAB BLOOD ORDERABLES Final Resu lt Performing Organization Address City/[facility]/ZIP Co de Phone Number [facility] [address] [place] [address] * (ABNORMAL) POCT glucose meter (11/09/2024 3:30 [...] Comment 11/09/2024 3:31 AM EDT HEALTHCARE LAB Labor And Employment Paralegal ID Maximiliano Hansen II 11/09/2024 3:31 AM EDT HEALTHCARE LAB Device ID [id number] 11/09/2024 3:31 AM EDT [facility] Specimen Type POC Capillary 11/09/2024 3:31 AM EDT [facility] Blood Capillary blood specimen / Unknown 11/09/2024 3:30 AM EDT 11/09/2024 3:31 AM EDT us Nathaly Nowak MD LAB POINT OF CARE TE ST DOCKED DEVICE UNSOLICITED RESULTS Final Result [facility] [address] [place] [address] * (ABNORMAL) POCT glucose meter (11/08/2024 7:21 [...] Comment 11/08/2024 7:22 PM EDT [facility]ALTH[facility] Labor And Employment Paralegal ID Maximiliano Hansen II 11/08/2024 7:22 PM EDT HEALTHCARE LAB Device ID [id number] 11/08/2024 7:22 PM EDT [facility]ALTH[facility]ARE LAB Specimen Type POC Capillary 11/08/2024 7:22 PM EDT [facility] Blood Capillary blood specimen / Unknown 11/08/2024 7:21 PM EDT 11/08/2024 7:22 PM EDT us Nathaly Nowak MD LAB POINT OF CARE TE ST DOCKED DEVICE UNSOLICITED RESULTS Final Result Performing Organization Address City/State/[place] Co de Phone Number [facility]ARE [facility] [address] [place] [address] * (ABNORMAL) POCT glucose meter (11/08/2024 5:12 [...] Comment 11/08/2024 5:14 PM EDT [facility] Labor And Employment Paralegal ID Estefani Sheth 11/08/2024 5:14 PM EDT HEALTH[facility]ARE LAB Device ID [id number] 11/08/2024 5:14 PM EDT [facility]ALTH[facility]ARE LAB Specimen Type POC Capillary 11/08/2024 5:14 PM EDT [facility] Blood Capillary blood specimen / Unknown 11/08/2024 5:12 PM EDT 11/08/2024 5:14 PM EDT us Nathaly Nowak MD LAB POINT OF CARE TE ST DOCKED DEVICE UNSOLICITED RESULTS Final Result Performing Organization Address City/[facility]/ZIP Co de Phone Number [facility] [address] [place] [address] * (ABNORMAL) POCT glucose meter (11/08/2024 12:03 [...] for testing. Comment 11/08/2024 12:05 PM EDT [facility] Labor And Employment Paralegal ID Estefani Sheth 11/08/2024 12:05 PM EDT [employer] LAB Device ID [id number] 11/08/2024 12:05 PM EDT [facility] Specimen Type POC Capillary 11/08/2024 12:05 PM EDT [facility] Blood Capillary blood specimen / Unknown 11/08/2024 12:03 PM EDT 11/08/2024 12:05 PM EDT Nathaly Nowak MD LAB POINT OF CARE TE ST DOCKED DEVICE UNSOLICITED RESULTS Final Result Performing Organization Address City/[facility]/ZIP Co de Phone Number [facility]ALTH[facility]ARE [facility] [address] [place] [address] * Vancomycin, Peak, Plasma Please draw ~2 hours after 11/08 0600 dose of vancomycin finishes infusing.Consider obtaining level via peripheral stick. If peripheral stick is not feasible, please ensure that line is flushed well prior to drawing level.... (11/08/2024 9:24 AM EDT) Pathologist [facility] Vancomycin, Peak, Plasma 29.1 20.0 - 40.0 ug/mL 11/08/2024 10:31 AM EDT [facility] Blood Venous blood specimen / Unknown Venipuncture / Unknown 11/08/2024 9:24 AM EDT 11/08/2024 9:47 AM EDT Narrative [facility] - 11/08/2024 10:31 AM EDT Therapeutic Peak level: 20-40ug/mL Supra-therapeutic Peak level: >40 ug/mL us Nathaly Nowak MD LAB BLOOD ORDERABLES Final Resu lt Performing Organization Address City/[facility]/ZIP Co de Phone Number [facility] [address] [place] [address] * (ABNORMAL) POCT glucose meter (11/08/2024 8:00 [...] Comment 11/08/2024 8:01 AM EDT [facility]ALTHCARE LAB Labor And Employment Paralegal ID Estefani Sheth 11/08/2024 8:01 AM EDT HEALTHCARE LAB Device ID [id number] 11/08/2024 8:01 AM EDT [facility] Specimen Type POC Capillary 11/08/2024 8:01 AM EDT [facility] Blood Capillary blood specimen / Unknown 11/08/2024 8:00 AM EDT 11/08/2024 8:01 AM EDT us Nathaly Nowak MD LAB POINT OF CARE TE ST DOCKED DEVICE UNSOLICITED RESULTS Final Result Performing Organization Address City/[facility]/ZIP Co de Phone Number [facility] [address] [place] [address] * (ABNORMAL) CBC and Differential (11/08/2024 4:39 AM EDT) WBC Count 9.18 3.70 - 10.30 10*3/uL LAB HEMATOLOGY METHOD 11/08/2024 4:58 AM EDT [facility] RBC Count 3.11(L) 4.60 - 6.10 10*6/uL LAB HEMATOLOGY METHOD 11/08/2024 4:58 AM EDT [facility] HGB 9.2(L) 13.7 - 17.5 g/dL LAB HEMATOLOGY METHOD 11/08/2024 4:58 AM EDT [facility] HCT 28.9(L) 40.0 - 51.0 % LAB HEMATOLOGY METHOD 11/08/2024 4:58 AM EDT [facility] Platelet Count 485(H) 155 - 369 10*3/uL LAB HEMATOLOGY METHOD 11/08/2024 4:58 AM EDT [facility] MCV 93 79 - 98 fL LAB HEMATOLOGY METHOD 11/08/2024 4:58 AM EDT [facility] MCH 29.6 26.0 - 32.0 pg LAB HEMATOLOGY METHOD 11/08/2024 4:58 AM EDT [facility] MCHC 31.8 30.7 - 35.5 g/dL LAB HEMATOLOGY METHOD 11/08/2024 4:58 AM EDT [facility] RDW 13.0 11.5 - 14.5 % LAB HEMATOLOGY METHOD 11/08/2024 4:58 AM EDT [facility] MPV 8.8 8.8 - 12.5 fL LAB HEMATOLOGY METHOD 11/08/2024 4:58 AM EDT [facility] nRBC 0.0 <=0.0 per 100 WBCs LAB HEMATOLOGY METHOD 11/08/2024 4:58 AM EDT [facility] Differential Type Automated LAB HEMATOLOGY METHOD 11/08/2024 4:58 AM EDT [facility] Neutrophils % 69 % LAB HEMATOLOGY METHOD 11/08/2024 4:58 AM EDT [facility] Lymphocytes % 17 % LAB HEMATOLOGY METHOD 11/08/2024 4:58 AM EDT [facility] Monocytes % 10 % LAB HEMATOLOGY METHOD 11/08/2024 4:58 AM EDT [facility] Eosinophils % 2 % LAB HEMATOLOGY METHOD 11/08/2024 4:58 AM EDT [facility] Basophils % 1 % LAB HEMATOLOGY METHOD 11/08/2024 4:58 AM EDT [facility] Immature Granulocytes % 1 % LAB HEMATOLOGY METHOD 11/08/2024 4:58 AM EDT [facility] Neutrophils Absolute 6.40(H) 1.60 - 6.10 10*3/uL LAB HEMATOLOGY METHOD 11/08/2024 4:58 AM EDT [facility] Lymphocytes Absolute 1.59 1.20 - 3.90 10*3/uL LAB HEMATOLOGY METHOD 11/08/2024 4:58 AM EDT [facility] Monocytes Absolute 0.87 0.30 - 0.90 10*3/uL LAB HEMATOLOGY METHOD 11/08/2024 4:58 AM EDT [facility] Eosinophils Absolute 0.22 0.00 - 0.50 10*3/uL LAB HEMATOLOGY METHOD 11/08/2024 4:58 AM EDT [facility] Basophils Absolute 0.05 0.00 - 0.10 10*3/uL LAB HEMATOLOGY METHOD 11/08/2024 4:58 AM EDT [facility] Immature Granulocytes Absolute 0.05 0.00 - 0.06 10*3/uL LAB HEMATOLOGY METHOD 11/08/2024 4:58 AM EDT [facility] Blood Venous blood specimen / Unknown Venipuncture / Unknown 11/08/2024 4:39 AM EDT 11/08/2024 4:49 AM EDT Narrative [facility] - 11/08/2024 4:58 AM EDT Therapeutic decision making should be based on absolute values, rather than percentages. us Nathaly Nowak MD LAB BLOOD ORDERABLES Final Resu lt [facility] [address] [place] [address] * (ABNORMAL) Comprehensive Metabolic Panel, Plasma (11/08/2024 4:39 AM EDT) Glucose, Plasma 255(H) 74 - 99 mg/dL 11/08/2024 5:20 AM EDT [facility] BUN, Plasma 10 8 - 23 mg/dL 11/08/2024 5:20 AM EDT [facility] Creatinine, Plasma 0.75 0.70 - 1.20 mg/dL 11/08/2024 5:20 AM EDT [facility] BUN/Creatinine Ratio 13 11/08/2024 5:20 AM EDT [facility] Sodium, Plasma 133(L) 136 - 145 mmol/L 11/08/2024 5:20 AM EDT [facility] Potassium, Plasma 5.2(H) 3.6 - 4.9 mmol/L 11/08/2024 5:20 AM EDT [facility] Chloride, Plasma 105 97 - 107 mmol/L 11/08/2024 5:20 AM EDT [facility] CO2, Plasma 20(L) 22 - 29 mmol/L 11/08/2024 5:20 AM EDT [facility] Anion Gap 8 6 - 16 mmol/L 11/08/2024 5:20 AM EDT [facility] Total Calcium, Plasma 7.7(L) 8.9 - 10.2 mg/dL 11/08/2024 5:20 AM EDT [facility] Total Protein 5.6(L) 6.3 - 7.9 g/dL 11/08/2024 5:20 AM EDT [facility] Albumin, Plasma 2.8(L) 3.5 - 5.2 g/dL 11/08/2024 5:20 AM EDT [facility] AST, Plasma 20 10 - 50 U/L 11/08/2024 5:20 AM EDT [facility] Comment:Hemolyzed, result ma y be falsely increased. ALT, Plasma 14 10 - 50 U/L 11/08/2024 5:20 AM EDT [facility] Alkaline Phosphatase, Plasma 119(H) 40 - 115 U/L 11/08/2024 5:20 AM EDT [facility] Total Bilirubin, Plasma <0.2(L) 0.2 - 1.1 mg/dL 11/08/2024 5:20 AM EDT [facility] eGFRcr 100.1 mL/min/1.7 3m*2 11/08/2024 5:20 AM EDT [facility] Comment:Reported eGFRcr in m L/min/1.73m2 is based the CKD-EPI 2020 equation that does not use a race coefficient. Blood Venous blood specimen / Unknown Venipuncture / Unknown 11/08/2024 4:39 AM EDT 11/08/2024 4:43 AM EDT Nathaly Nowak MD LAB BLOOD ORDERABLES Final Resu lt Performing Organization Address [facility] de Phone Number [facility] [address] [place] [phone] * Vancomycin, Trough, Plasma Please draw ~30 minutes prior to dose due at 0600 on 11/08. Please do NOThold dose awaiting level to return. Consider obtaining level via peripheral stick. If peripheral stick is not feasible, please ensure that line is... (11/08/2024 4:39 AM EDT) [facility] Vancomycin, Trough, Plasma 18.7 10.0 - 20.0 ug/mL 11/08/2024 5:22 AM EDT [facility] Blood Venous blood specimen / Unknown Venipuncture / Unknown 11/08/2024 4:39 AM EDT 11/08/2024 4:43 AM EDT Narrative [facility] - 11/08/2024 5:22 AM EDT Therapeutic Trough level: 10-20ug/mL Supra-therapeutic Trough level: >20 ug/mL Nathaly Nowak MD LAB BLOOD ORDERABLES Final Resu Performing Organization Address [facility] Phone Number [facility] [address] [place] [phone] * (ABNORMAL) POCT glucose meter (11/07/2024 7:26 PM EDT) [facility] POCT Glucose 172(H) 74 - 99 mg/dL 11/07/2024 7:28 PM EDT [facility] Comment:Accuracy of a glucos e result [...] 11/07/2024 7:28 PM EDT [facility] [employer] Paralegal ID Hansen Maximiliano WALTERS 11/07/2024 7:28 PM EDT [facility] Device ID [id number] 11/07/2024 7:28 PM EDT [facility] Specimen Type POC Capillary 11/07/2024 7:28 PM EDT [facility] Blood Capillary blood specimen / Unknown 11/07/2024 7:26 PM EDT 11/07/2024 7:28 PM EDT Nathaly Nowak MD LAB POINT OF CARE TE ST DOCKED DEVICE UNSOLICITED RESULTS Final Result Performing Organization Address City/[facility]/ZIP Co de Phone Number [facility]ALTHCARE LAB [address] [place] [address] * (ABNORMAL) POCT glucose meter (11/07/2024 5:51 [...] Comment 11/07/2024 5:52 PM EDT [facility] Labor And Employment Paralegal ID Brigitte Castellon 11/07/2024 5:52 PM EDT [facility] Device ID [id number] 11/07/2024 5:52 PM EDT [facility] Specimen Type POC Capillary 11/07/2024 5:52 PM EDT [facility] Blood Capillary blood specimen / Unknown 11/07/2024 5:51 PM EDT 11/07/2024 5:52 PM EDT Nathaly Nowak MD LAB POINT OF CARE TE ST DOCKED DEVICE UNSOLICITED RESULTS Final Result Performing Organization Address City/[facility]/ZIP Co de Phone Number [facility] [address] [place] [address] * (ABNORMAL) POCT glucose meter (11/07/2024 4:47 [...] 11/07/2024 4:48 PM EDT [facility] [employer] Employment Paralegal ID Estefani Sheth 11/07/2024 4:48 PM EDT [facility] Device ID [id number] 11/07/2024 4:48 PM EDT [facility] Specimen Type POC Capillary 11/07/2024 4:48 PM EDT [facility] Blood Capillary blood specimen / Unknown 11/07/2024 4:47 PM EDT 11/07/2024 4:48 PM EDT Nathaly Nowak MD LAB POINT OF CARE TE ST DOCKED DEVICE UNSOLICITED RESULTS Final Result Performing Organization Address City/State/[place] de Phone Number [facility] [address] [place] [address] * (ABNORMAL) POCT glucose meter (11/07/2024 12:22 PM EDT) [facility] POCT Glucose 172(H) 74 - 99 mg/dL [...] 11/07/2024 12:24 PM EDT [facility] [employer] And Employment Paralegal ID Estefani Sheth 11/07/2024 12:24 PM EDT [facility] Device ID [id number] 11/07/2024 12:24 PM EDT [facility] Specimen Type POC Capillary 11/07/2024 12:24 PM EDT [facility] Blood Capillary blood specimen / Unknown 11/07/2024 12:22 PM EDT 11/07/2024 12:24 PM EDT us Nathaly Nowak MD LAB POINT OF CARE TE ST DOCKED DEVICE UNSOLICITED RESULTS Final Result [facility] [address] [place] [address] * (ABNORMAL) CBC and Differential (11/07/2024 11:37 AM EDT) WBC Count 9.96 3.70 - 10.30 10*3/uL LAB HEMATOLOGY METHOD 11/07/2024 12:33 PM EDT [facility] RBC Count 2.81(L) 4.60 - 6.10 10*6/uL LAB HEMATOLOGY METHOD 11/07/2024 12:33 PM EDT [facility] HGB 8.5(L) 13.7 - 17.5 g/dL LAB HEMATOLOGY METHOD 11/07/2024 12:33 PM EDT [facility] HCT 26.0(L) 40.0 - 51.0 % LAB HEMATOLOGY METHOD 11/07/2024 12:33 PM EDT [facility] Platelet Count 524(H) 155 - 369 10*3/uL LAB HEMATOLOGY METHOD 11/07/2024 12:33 PM EDT [facility] MCV 93 79 - 98 fL LAB HEMATOLOGY METHOD 11/07/2024 12:33 PM EDT [facility] MCH 30.2 26.0 - 32.0 pg LAB HEMATOLOGY METHOD 11/07/2024 12:33 PM EDT [facility] MCHC 32.7 30.7 - 35.5 g/dL LAB HEMATOLOGY METHOD 11/07/2024 12:33 PM EDT [facility] RDW 13.1 11.5 - 14.5 % LAB HEMATOLOGY METHOD 11/07/2024 12:33 PM EDT [facility] MPV 9.0 8.8 - 12.5 fL LAB HEMATOLOGY METHOD 11/07/2024 12:33 PM EDT [facility] nRBC 0.0 <=0.0 per 100 WBCs LAB HEMATOLOGY METHOD 11/07/2024 12:33 PM EDT [facility] Differential Type Automated LAB HEMATOLOGY METHOD 11/07/2024 12:33 PM EDT [facility] Neutrophils % 72 % LAB HEMATOLOGY METHOD 11/07/2024 12:33 PM EDT [facility] Lymphocytes % 17 % LAB HEMATOLOGY METHOD 11/07/2024 12:33 PM EDT [facility] Monocytes % 9 % LAB HEMATOLOGY METHOD 11/07/2024 12:33 PM EDT [facility] Eosinophils % 1 % LAB HEMATOLOGY METHOD 11/07/2024 12:33 PM EDT [facility] Basophils % 1 % LAB HEMATOLOGY METHOD 11/07/2024 12:33 PM EDT [facility] Immature Granulocytes % 0 % LAB HEMATOLOGY METHOD 11/07/2024 12:33 PM EDT [facility] Neutrophils Absolute 7.19(H) 1.60 - 6.10 10*3/uL LAB HEMATOLOGY METHOD 11/07/2024 12:33 PM EDT [facility] Lymphocytes Absolute 1.66 1.20 - 3.90 10*3/uL LAB HEMATOLOGY METHOD 11/07/2024 12:33 PM EDT [facility] Monocytes Absolute 0.88 0.30 - 0.90 10*3/uL LAB HEMATOLOGY METHOD 11/07/2024 12:33 PM EDT [facility] Eosinophils Absolute 0.14 0.00 - 0.50 10*3/uL LAB HEMATOLOGY METHOD 11/07/2024 12:33 PM EDT [facility] Basophils Absolute 0.05 0.00 - 0.10 10*3/uL LAB HEMATOLOGY METHOD 11/07/2024 12:33 PM EDT [facility] Immature Granulocytes Absolute 0.04 0.00 - 0.06 10*3/uL LAB HEMATOLOGY METHOD 11/07/2024 12:33 PM EDT [facility] Blood Venous blood specimen / Unknown Venipuncture / Unknown 11/07/2024 11:37 AM EDT 11/07/2024 12:24 PM EDT [facility] - 11/07/2024 12:33 PM EDT Therapeutic decision making should be based on absolute values, rather than percentages. us Nathaly Nowak MD LAB BLOOD ORDERABLES Final Resu lt [facility] [address] [place] [address] * (ABNORMAL) Comprehensive Metabolic Panel, Plasma (11/07/2024 11:37 AM EDT) Glucose, Plasma 173(H) 74 - 99 mg/dL 11/07/2024 1:31 PM EDT [facility] BUN, Plasma 13 8 - 23 mg/dL 11/07/2024 1:31 PM EDT [facility] Creatinine, Plasma 0.92 0.70 - 1.20 mg/dL 11/07/2024 1:31 PM EDT [facility] BUN/Creatinine Ratio 11/07/2024 1:31 PM EDT [facility] Sodium, Plasma 136 136 - 145 mmol/L 11/07/2024 1:31 PM EDT [facility] Potassium, Plasma 4.0 3.6 - 4.9 mmol/L 11/07/2024 1:31 PM EDT [facility] Chloride, Plasma 104 97 - 107 mmol/L 11/07/2024 1:31 PM EDT [facility] CO2, Plasma 23 22 - 29 mmol/L 11/07/2024 1:31 PM EDT [facility] Anion Gap 9 6 - 16 mmol/L 11/07/2024 1:31 PM EDT [facility] Total Calcium, Plasma 7.8(L) 8.9 - 10.2 mg/dL 11/07/2024 1:31 PM EDT [facility] Total Protein 5.7(L) 6.3 - 7.9 g/dL 11/07/2024 1:31 PM EDT [facility] Albumin, Plasma 3.0(L) 3.5 - 5.2 g/dL 11/07/2024 1:31 PM EDT [facility] AST, Plasma 15 10 - 50 U/L 11/07/2024 1:31 PM EDT [facility] ALT, Plasma 16 10 - 50 U/L 11/07/2024 1:31 PM EDT [facility] Alkaline Phosphatase, Plasma 119(H) 40 - 115 U/L 11/07/2024 1:31 PM EDT [facility] Total Bilirubin, Plasma <0.2(L) 0.2 - 1.1 mg/dL 11/07/2024 1:31 PM EDT [facility] eGFRcr 92.3 mL/min/1.7 3m*2 11/07/2024 1:31 PM EDT [facility] Comment:Reported eGFRcr in m L/min/1.73m2 is based the CKD-EPI 2020 equation that does not use a race coefficient. Blood Venous blood specimen / Unknown Venipuncture / Unknown 11/07/2024 11:37 AM EDT 11/07/2024 12:23 PM EDT Nathaly Nowak MD LAB BLOOD ORDERABLES Final Resu lt Performing Organization Address City/[facility]/ZIP Co de Phone Number [facility] [address] [place] [address] * Type and Screen (11/07/2024 11:37 AM [...] ORDERABLES F inal Result Performing Organization Address [facility] de Phone Number BLOOD BANK [address] [place] [address], * (ABNORMAL) POCT glucose meter (11/07/2024 10:34 AM EDT) Pathologist [facility] POCT Glucose 199(H) 74 - 99 mg/dL 11/07/2024 10:36 AM EDT [facility] Comment:Accuracy of a glucos e result [...] Comment 11/07/2024 10:36 AM EDT [facility] Labor And Employment Paralegal ID Joy Iraheta 11/07/2024 10:36 AM EDT [facility] LAB Device ID [id number] 11/07/2024 10:36 AM EDT [facility] Specimen Type POC Capillary 11/07/2024 10:36 AM EDT [facility] Blood Capillary blood specimen / Unknown 11/07/2024 10:34 AM EDT 11/07/2024 10:36 AM EDT Nathaly Nowak MD LAB POINT OF CARE TE ST DOCKED DEVICE UNSOLICITED RESULTS Final Result Performing Organization Address City/[facility]/[place] [facility] de Phone Number [facility] [address] [place] [address] * (ABNORMAL) POCT glucose meter (11/07/2024 9:34 AM EDT) [facility] POCT Glucose 208(H) 74 - 99 mg/dL [...] Comment 11/07/2024 9:36 AM EDT [facility] Labor And Employment Paralegal ID Brigitte Castellon 11/07/2024 9:36 AM EDT [facility] LAB Device ID [id number] 11/07/2024 9:36 AM EDT [facility] Specimen Type POC Capillary 11/07/2024 9:36 AM EDT [facility] Blood Capillary blood specimen / Unknown 11/07/2024 9:34 AM EDT 11/07/2024 9:36 AM EDT Nathaly Nowak MD LAB POINT OF CARE TE ST DOCKED DEVICE UNSOLICITED RESULTS Final Result [facility] [address] [place] [address] * (ABNORMAL) POCT glucose meter (11/07/2024 8:20 AM EDT) [facility] POCT Glucose 137(H) 74 - 99 mg/dL [...] 11/07/2024 8:22 AM EDT [facility] Labor And Employment Paralegal ID Estefani Sheth Chris 11/07/2024 8:22 AM EDT [facility] Device ID [id number] 11/07/2024 8:22 AM EDT [facility] Specimen Type POC Capillary 11/07/2024 8:22 AM EDT [facility] Blood Capillary blood specimen / Unknown 11/07/2024 8:20 AM EDT 11/07/2024 8:22 AM EDT Nathaly Nowak MD LAB POINT OF CARE TE ST DOCKED DEVICE UNSOLICITED RESULTS Final Result [facility] [address] [place] [address] * (ABNORMAL) POCT glucose meter (11/07/2024 7:21 AM EDT) [facility] POCT Glucose 151(H) 74 - 99 mg/dL [...] 11/07/2024 7:22 AM EDT [facility] Labor And Employment Paralegal ID Brigitte Castellon 11/07/2024 7:22 AM EDT [facility] Device ID [id number] 11/07/2024 7:22 AM EDT [facility] Specimen Type POC Capillary 11/07/2024 7:22 AM EDT [facility] Blood Capillary blood specimen / Unknown 11/07/2024 7:21 AM EDT 11/07/2024 7:22 AM EDT Nathaly Nowak MD LAB POINT OF CARE TE ST DOCKED DEVICE UNSOLICITED RESULTS Final Result Performing Organization Address City/[facility] de Phone Number [facility] [address] [place] [address] * (ABNORMAL) POCT glucose meter (11/07/2024 6:25 [...] Comment 11/07/2024 6:27 AM EDT [facility] Labor And Employment Paralegal ID Nelda Gerber 11/08/19 6:27 AM EDT HEALTH[facility]ARE LAB Device ID [id number] 11/07/2024 6:27 AM EDT [facility] Specimen Type POC Capillary 11/07/2024 6:27 AM EDT [facility] Blood Capillary blood specimen / Unknown 11/07/2024 6:25 AM EDT 11/07/2024 6:27 AM EDT us Nathaly Nowak MD LAB POINT OF CARE TE ST DOCKED DEVICE UNSOLICITED RESULTS Final Result Performing Organization Address City/[facility] de Phone Number [facility] [address] [place] [address] * (ABNORMAL) POCT glucose meter (11/07/2024 5:03 [...] Comment 11/07/2024 5:08 AM EDT [facility] Labor And Employment Paralegal ID Nelda Gerber 11/08/19 5:08 AM EDT [facility]ARE LAB Device ID [id number] 11/07/2024 5:08 AM EDT [facility] Specimen Type POC Capillary 11/07/2024 5:08 AM EDT [facility] Blood Capillary blood specimen / Unknown 11/07/2024 5:03 AM EDT 11/07/2024 5:08 AM EDT Nathaly Nowak MD LAB POINT OF CARE TE ST DOCKED DEVICE UNSOLICITED RESULTS Final Result [facility] [address] [place] [address] * (ABNORMAL) POCT glucose meter (11/07/2024 4:16 AM EDT) [facility] POCT Glucose 142(H) 74 - 99 mg/dL [...] 11/07/2024 4:18 AM EDT [facility] Labor And Employment Paralegal ID Nelda Gerber 11/08/19 4:18 AM EDT [facility]ALTH[facility]ARE LAB Device ID [id number] 11/07/2024 4:18 AM EDT [facility] Specimen Type POC Capillary 11/07/2024 4:18 AM EDT [facility] Blood Capillary blood specimen / Unknown 11/07/2024 4:16 AM EDT 11/07/2024 4:18 AM EDT Nathaly Nowak MD LAB POINT OF CARE TE ST DOCKED DEVICE UNSOLICITED RESULTS Final Result Performing Organization Address [facility] de Phone Number [facility] [address] [place] [address] * (ABNORMAL) POCT glucose meter (11/07/2024 3:21 [...] for testing. Comment 11/07/2024 3:23 AM EDT [facility] Labor And Employment Paralegal ID Nelda Gerber 11/08/19 3:23 AM EDT [facility] Device ID [id number] 11/07/2024 3:23 AM EDT [facility] Specimen Type POC Capillary 11/07/2024 3:23 AM EDT [facility] Blood Capillary blood specimen / Unknown 11/07/2024 3:21 AM EDT 11/07/2024 3:23 AM EDT us Nathaly Nowak MD LAB POINT OF CARE TE ST DOCKED DEVICE UNSOLICITED RESULTS Final Result Performing Organization Address City/[facility] de Phone Number HEALTHCARE LAB [address] [place] [address] * (ABNORMAL) POCT glucose meter (11/07/2024 2:10 [...] 11/07/2024 2:12 AM EDT [facility] Labor And Employment Paralegal ID Nelda Gerber 11/08/19 2:12 AM EDT [facility] Device ID [id number] 11/07/2024 2:12 AM EDT [facility] Specimen Type POC Capillary 11/07/2024 2:12 AM EDT [facility] Blood Capillary blood specimen / Unknown 11/07/2024 2:10 AM EDT 11/07/2024 2:12 AM EDT Nathaly Nowak MD LAB POINT OF CARE TE ST DOCKED DEVICE UNSOLICITED RESULTS Final Result Performing Organization Address [facility] de Phone Number [facility]ARE [facility] [address] [place] [address] * (ABNORMAL) POCT glucose meter (11/07/2024 1:08 [...] Comment 11/07/2024 1:10 AM EDT [facility] Labor And Employment Paralegal ID Nelda Gerber 11/08/19 1:10 AM EDT [facility]ARE LAB Device ID [id number] 11/07/2024 1:10 AM EDT [facility] Specimen Type POC Capillary 11/07/2024 1:10 AM EDT [facility] Blood Capillary blood specimen / Unknown 11/07/2024 1:08 AM EDT 11/07/2024 1:10 AM EDT us Nathaly Nowak MD LAB POINT OF CARE TE ST DOCKED DEVICE UNSOLICITED RESULTS Final Result Performing Organization Address [facility] de Phone Number [facility] [address] [place] [address] * (ABNORMAL) POCT glucose meter (11/07/2024 12:10 AM EDT) [facility] POCT Glucose 127(H) 74 - 99 mg/dL [...] Comment 11/07/2024 12:13 AM EDT [facility] Labor And Employment Paralegal ID Nelda Gerber 11/08/19 12:13 AM EDT [facility] Device ID [id number] 11/07/2024 12:13 AM EDT [facility] Specimen Type POC Capillary 11/07/2024 12:13 AM EDT [facility] Blood Capillary blood specimen / Unknown 11/07/2024 12:10 AM EDT 11/07/2024 12:13 AM EDT Nathaly Nowak MD LAB POINT OF CARE TE ST DOCKED DEVICE UNSOLICITED RESULTS Final Result [facility] [address] [place] [address] * (ABNORMAL) POCT glucose meter (11/06/2024 11:14 PM EDT) [facility] POCT Glucose 71(L) 74 - 99 mg/dL [...] 11/06/2024 11:16 PM EDT [facility] Labor And Employment Paralegal ID Nelda Gerber 11/07/19 11:16 PM EDT [employer] [facility] Device ID [id number] 11/06/2024 11:16 PM EDT [facility] Specimen Type POC Capillary 11/06/2024 11:16 PM EDT [facility] Blood Capillary blood specimen / Unknown 11/06/2024 11:14 PM EDT 11/06/2024 11:16 PM EDT Nathaly Nowak MD LAB POINT OF CARE TE ST DOCKED DEVICE UNSOLICITED RESULTS Final Result Performing Organization Address City/[facility]/ZIP Co de Phone Number HEALTHCARE LAB [address] [place] [address] * (ABNORMAL) POCT glucose meter (11/06/2024 10:07 [...] Comment 11/06/2024 10:09 PM EDT [facility] Labor And Employment Paralegal ID Nelda Gerber 11/07/19 10:09 PM EDT HEALTH[facility]ARE LAB Device ID [id number] 11/06/2024 10:09 PM EDT [facility] Specimen Type POC Capillary 11/06/2024 10:09 PM EDT [facility] Blood Capillary blood specimen / Unknown 11/06/2024 10:07 PM EDT 11/06/2024 10:09 PM EDT Nathaly Nowak MD LAB POINT OF CARE TE ST DOCKED DEVICE UNSOLICITED RESULTS Final Result Performing Organization Address City/[facility]/ZIP Co de Phone Number [facility]ALTH[facility]ARE [facility] [address] [place] [address] * (ABNORMAL) POCT glucose meter (11/06/2024 8:22 [...] 11/06/2024 8:25 PM EDT [facility] Labor And Employment Paralegal ID Nelda Gerber 11/07/19 8:25 PM EDT [facility] Device ID [id number] 11/06/2024 8:25 PM EDT [facility] Specimen Type POC Capillary 11/06/2024 8:25 PM EDT [facility] Blood Capillary blood specimen / Unknown 11/06/2024 8:22 PM EDT 11/06/2024 8:25 PM EDT us Nathaly Nowak MD LAB POINT OF CARE TE ST DOCKED DEVICE UNSOLICITED RESULTS Final Result Performing Organization Address City/State/[place] [facility] de Phone Number [facility] [address] [place] [address] * (ABNORMAL) POCT glucose meter (11/06/2024 7:31 PM EDT) [facility] Signature POCT Glucose 359(H) 74 - 99 [...] 11/06/2024 7:32 PM EDT [facility] Labor And Employment Paralegal ID Nelda Gerber 11/07/19 7:32 PM EDT [facility] Device ID [id number] 11/06/2024 7:32 PM EDT [facility] Specimen Type POC Capillary 11/06/2024 7:32 PM EDT [facility] Blood Capillary blood specimen / Unknown 11/06/2024 7:31 PM EDT 11/06/2024 7:32 PM EDT Nathaly Nowak MD LAB POINT OF CARE TE ST DOCKED DEVICE UNSOLICITED RESULTS Final Result Performing Organization Address City/[facility]/[place] [facility] de Phone Number [facility] [address] [place] [address] * (ABNORMAL) POCT glucose meter (11/06/2024 6:15 [...] for testing. Comment 11/06/2024 6:17 PM EDT [facility] Labor And Employment Paralegal ID Estefani Sheth 11/06/2024 6:17 PM EDT [facility] Device ID [id number] 11/06/2024 6:17 PM EDT [facility] Specimen Type POC Capillary 11/06/2024 6:17 PM EDT [facility] Blood Capillary blood specimen / Unknown 11/06/2024 6:15 PM EDT 11/06/2024 6:17 PM EDT Nathaly Nowak MD LAB POINT OF CARE TE ST DOCKED DEVICE UNSOLICITED RESULTS Final Result Performing Organization Address City/[facility] de Phone Number [facility] [address] [place] [address] * (ABNORMAL) POCT glucose meter (11/06/2024 4:57 [...] Comment 11/06/2024 4:58 PM EDT [facility] Labor And Employment Paralegal ID Estefani Sheth 11/06/2024 4:58 PM EDT [facility] LAB Device ID [id number] 11/06/2024 4:58 PM EDT [facility] Specimen Type POC Capillary 11/06/2024 4:58 PM EDT [facility] Blood Capillary blood specimen / Unknown 11/06/2024 4:57 PM EDT 11/06/2024 4:58 PM EDT us Nathaly Nowak MD LAB POINT OF CARE TE ST DOCKED DEVICE UNSOLICITED RESULTS Final Result Performing Organization Address City/[facility]/ZIP Co de Phone Number [facility]ALTH[facility]ARE [facility] [address] [place] [address] * (ABNORMAL) POCT glucose meter (11/06/2024 2:08 [...] Comment 11/06/2024 2:09 PM EDT [facility] Labor And Employment Paralegal ID Brigitte Castellon 11/06/2024 2:09 PM EDT [facility]ARE LAB Device ID [id number] 11/06/2024 2:09 PM EDT [facility] Specimen Type POC Capillary 11/06/2024 2:09 PM EDT [facility] Blood Capillary blood specimen / Unknown 11/06/2024 2:08 PM EDT 11/06/2024 2:09 PM EDT us Nathaly Nowak MD LAB POINT OF CARE TE ST DOCKED DEVICE UNSOLICITED RESULTS Final Result Performing Organization Address City/[facility]/ZIP Co de Phone Number [facility] [address] [place] [address] * (ABNORMAL) POCT glucose meter (11/06/2024 12:27 [...] Comment 11/06/2024 12:28 PM EDT [facility] Labor And Employment Paralegal ID Jacinta Galloway 11/06/2024 12:28 PM EDT [facility]ARE LAB Device ID [id number] 11/06/2024 12:28 PM EDT [facility] Specimen Type POC Capillary 11/06/2024 12:28 PM EDT [facility] Blood Capillary blood specimen / Unknown 11/06/2024 12:27 PM EDT 11/06/2024 12:28 PM EDT us Nathaly Nowak MD LAB POINT OF CARE TE ST DOCKED DEVICE UNSOLICITED RESULTS Final Result Performing Organization Address City/State/[place] [facility] de Phone Number [facility] [address] [place] [address] * (ABNORMAL) Tissue Culture and Gram Stain (11/06/2024 11:34 AM EDT) [facility] Culture Moderate Growth 7:35 AM EDT [facility] Culture 2+ Enterobacter cloacae complex(A) ANGÉLICA 11/15/2024 7:35 AM EDT [facility] Comment: This isolate has been identified using the FDA Approved code-laboration [place] System The organism value for this result has been updated. These results have been appended to the previously preliminary verified report. Edited result: Previously reported as Gram Negative Jesus on 11/07/2024 at 1434 EDT. Culture 2+ Streptococcus mitis/oralis group(A) ANGÉLICA 11/15/2024 7:35 AM EDT [facility] Comment: This isolate has been identified using the FDA Approved Time To Caterer [place] System The organism value for this result has been updated. These results have been appended to the previously preliminary verified report. Culture 2+ Pasteurella stomatis(A) ANGÉLICA 11/15/2024 7:35 AM EDT [facility] Comment: This result was determined by [employer] tof mass spectrometry using the [employer] database and is for research use only. The organism value for this result has been updated. These results have been appended to the previously preliminary verified report. Gram Stain Result Few Gram negative rods(A) 11/15/2024 7:35 AM EDT [facility] Gram Stain Result Moderate Polymorphonuclear leukocytes(A) 11/15/2024 7:35 AM EDT [facility] Gram Stain Result Few Gram positive cocci in pairs(A) 11/15/2024 7:35 AM EDT [facility] Tissue Topography unknown / Unknown 11/06/2024 11:34 AM EDT 11/06/2024 12:18 PM EDT Comment:Pre-op diagnosis: Surgical wound infection [T81.49XA] Narrative [facility] - 11/15/2024 7:35 [...] Edited Result - Final [facility] [address] [place] [address] * (ABNORMAL) Anaerobic Culture (11/06/2024 11:34 AM EDT) Culture No anaerobes isolated 11/14/2024 1:25 PM EDT [facility] Culture Staphylococcus pseudintermedius( A) 11/14/2024 1:25 PM EDT [facility] Comment: This result was determined by MALDI tof mass spectrometry using the MoPix database and is for research use only. This is an appended report. These results have been appended to a previously final verified report. Tissue Topography unknown / Unknown 11/06/2024 11:34 AM EDT 11/06/2024 12:18 PM EDT Comment:Pre-op diagnosis: Surgical wound infection [T81.49XA] Narrative [facility] - 11/14/2024 1:25 [...] GENERAL ORDAna FRITZ Edited Result - Final [facility] [address] [place] [address] * (ABNORMAL) Routine Culture and Gram Stain (11/06/2024 11:29 AM EDT) Culture Moderate Growth 5:29 PM EDT [facility] Culture Enterobacter cloacae complex(A) 11/08/2024 5:29 PM EDT [facility] Comment: This isolate has been identified using the FDA Approved Time To Caterer [place] System For susceptibility results refer to: - [id number] The organism value for this result has been updated. These results have been appended to the previously preliminary verified report. Gram Stain Result No polymorphonuclear leukocytes seen 11/08/2024 5:29 PM EDT [facility] Gram Stain Result No organisms seen 11/08/2024 5:29 PM EDT [facility] Swab Topography unknown / Unknown 11/06/2024 11:29 AM EDT 11/06/2024 12:19 PM EDT Comment:Pre-op diagnosis: Surgical wound infection [T81.49XA] Nathaly Nowak MD LAB [facility]BI[facility] Final Result Performing Organization Address [facility] Co de Phone Number [facility] [address] [place] [address] * Fungal Culture, Routine (11/06/2024 11:29 AM EDT) Culture No Fungal Growth at 1 Week 11/13/2024 8:29 AM EDT [facility] Swab Topography unknown / Unknown 11/06/2024 11:29 AM EDT 11/06/2024 12:19 PM EDT Comment:Pre-op diagnosis: Surgical wound infection [T81.49XA] Nathaly Nowak MD LAB MICROBIOLOGY - GENERAL ORDE RABLES Final Result Performing Organization Address City/[facility] Co de Phone Number [facility] [address] [place] [address] * (ABNORMAL) Anaerobic Culture (11/06/2024 11:29 AM EDT) Culture No anaerobes isolated 11/14/2024 1:25 PM EDT [facility] Culture Streptococcus mitis/oralis group(A) 11/14/2024 1:25 PM EDT [facility] Comment: This result was determined by MALDI tof mass spectrometry using the MoPix database and is for research use only. The organism value for this result has been updated. These results have been appended to the previously preliminary verified report. This is a corrected result. Previous organism was Mixed skin clifton on 11/10/2024 at 0718 EDT. Culture Staphylococcus pseudintermedius( A) 11/14/2024 1:25 PM EDT [facility] Comment: This isolate has been identified using the FDA Approved Allostera Pharmayper [place] System This is an appended report. These results have been appended to a previously final verified report. Swab Topography unknown / Unknown 11/06/2024 11:29 AM EDT 11/06/2024 12:19 PM EDT Comment:Pre-op diagnosis: Surgical wound infection [T81.49XA] Narrative [facility] - 11/14/2024 1:25 [...] GENERAL ATIYA FRITZ Edited Result - Final [facility] [address] [place] [address] * Routine Culture and Gram Stain (11/06/2024 11:28 AM EDT) Culture No growth at day 4 2024 11:24 AM EDT [facility] Gram Stain Result No organisms seen 11/10/2024 11:24 AM EDT [facility] Gram Stain Result No polymorphonuclear leukocytes seen 11/10/2024 11:24 AM EDT [facility] Swab Topography unknown / Unknown 11/06/2024 11:28 AM EDT 11/06/2024 12:20 PM EDT Comment:Pre-op diagnosis: Surgical wound infection [T81.49XA] us Nathaly Nowak MD LAB MICROBIOLOGY - GENERAL ORDE LAM Final Result Performing Organization Address City/[facility] Co de Phone Number [facility] [address] [place] [address] * Fungal Culture, Routine (11/06/2024 11:28 AM EDT) Culture No Fungal Growth at 1 Week 11/13/2024 8:29 AM EDT [facility] Swab Topography unknown / Unknown 11/06/2024 11:28 AM EDT 11/06/2024 12:20 PM EDT Comment:Pre-op diagnosis: Surgical wound infection [T81.49XA] us Nathaly Nowak MD LAB MICROBIOLOGY - GENERAL ORDE LAM Final Result Performing Organization Address City/[facility] Co de Phone Number [facility] [address] [place] [address] * Anaerobic Culture (11/06/2024 11:28 AM EDT) Culture No growth at day 4 11/13/2024 12:53 PM EDT [facility] Swab Topography unknown / Unknown 11/06/2024 11:28 AM EDT 11/06/2024 12:20 PM EDT Comment:Pre-op diagnosis: Surgical wound infection [T81.49XA] us Nathaly Nowak MD LAB MICROBIOLOGY - GENERAL ORDE RABONEIDA Final Result [facility] [address] [place] [address] * (ABNORMAL) POCT glucose meter (11/06/2024 10:16 AM EDT) [facility] POCT Glucose 194(H) 74 - 99 mg/dL [...] Comment 11/06/2024 10:18 AM EDT [facility] Labor And Employment Paralegal ID Elias, Lacy 11/07/19 10:18 AM EDT [facility] Device ID [id number] 11/06/2024 10:18 AM EDT [facility] Specimen Type POC Capillary 11/06/2024 10:18 AM EDT [facility] Blood Capillary blood specimen / Unknown 11/06/2024 10:16 AM EDT 11/06/2024 10:18 AM EDT Nathaly Nowak MD LAB POINT OF CARE TE ST DOCKED DEVICE UNSOLICITED RESULTS Final Result Performing Organization Address [facility] Co de Phone Number [facility] [address] [place] [address] * (ABNORMAL) POCT glucose meter (11/06/2024 5:58 AM EDT) [facility] POCT Glucose 182(H) 74 - 99 mg/dL [...] Comment 11/06/2024 6:01 AM EDT [facility] Labor And Employment Paralegal ID Raj Laird 11/07/19 6:01 AM EDT [facility]ARE LAB Device ID [id number] 11/06/2024 6:01 AM EDT [facility] Specimen Type POC Capillary 11/06/2024 6:01 AM EDT [facility] Blood Capillary blood specimen / Unknown 11/06/2024 5:58 AM EDT 11/06/2024 6:01 AM EDT Nathaly Nowak MD LAB POINT OF CARE TE ST DOCKED DEVICE UNSOLICITED RESULTS Final Result Performing Organization Address City/[facility] Co de Phone Number [facility] [address] [place] [address] * (ABNORMAL) POCT glucose meter (11/06/2024 5:36 [...] 11/06/2024 5:38 AM EDT [facility] Labor And Employment Paralegal ID Shahid Sanches 11/06/2024 5:38 AM EDT [facility] LAB Device ID [id number] 11/06/2024 5:38 AM EDT [facility] Specimen Type POC Capillary 11/06/2024 5:38 AM EDT [facility] Blood Capillary blood specimen / Unknown 11/06/2024 5:36 AM EDT 11/06/2024 5:38 AM EDT us Nathaly Nowak MD LAB POINT OF CARE TE ST DOCKED DEVICE UNSOLICITED RESULTS Final Result Performing Organization Address City/[facility] Co de Phone Number [facility] [address] [place] [address] * (ABNORMAL) Hemoglobin A1c (11/06/2024 1:07 AM EDT) Hemoglobin A1c 7.6(H) <5.7 % 11/06/2024 11:09 AM EDT [facility] Blood Venous blood specimen / Unknown Venipuncture / Unknown 11/06/2024 1:07 AM EDT 11/06/2024 1:26 AM EDT Narrative [facility] - 11/06/2024 11:09 AM EDT HA1C Interpretive Data: Diagnosis of Diabetes: Diabetic > or = 6.5% Pre-diabetic 5.7 to 6.4% Non-diabetic < or = 5.6% Glycemic Targets for Type I and Type II Diabetics: Non- Adults <7.0% Adults <6.0% Children and Adolescents <7.5% Source: [place] [employer]. Standards of medical care in diabetes,2017. Diabetes Care.2017:40 (suppl 1):S1-S135. us Nathaly Nowak MD LAB BLOOD ORDERABLES Final Resu lt Performing Organization Address City/[facility]/ZIP Co de Phone Number [facility] [address] [place] [address] * Blood Culture (Aerobic/Anaerobet Set) (11/06/2024 1:07 AM EDT) Culture No growth at day 5 11/11/2024 2:49 AM EDT [facility] Blood Structure of right hand / Unknown Venipuncture / Unknown 11/06/2024 1:07 AM EDT 11/06/2024 2:36 AM EDT us Nathaly Nowak MD LAB MICROBIOLOGY - GENERAL ORDE RABLES Final Result [facility] [address] [place] [address] * Blood Culture (Aerobic/Anaerobet Set) (11/06/2024 1:07 AM EDT) Culture No growth at day 5 11/11/2024 3:01 AM EDT [facility] Blood Structure of antecubital vein / Unknown Venipuncture / Unknown 11/06/2024 1:07 AM EDT 11/06/2024 2:36 AM EDT us Nathaly Nowak MD LAB MICROBIOLOGY - GENERAL ORDAna FRITZ Final Result [facility] [address] [place] [address] * (ABNORMAL) Basic metabolic panel (11/06/2024 1:07 AM EDT) Glucose, Plasma 207(H) 74 - 99 mg/dL 11/06/2024 1:41 AM EDT [facility] BUN, Plasma 20 8 - 23 mg/dL 11/06/2024 1:41 AM EDT [facility] Creatinine, Plasma 0.92 0.70 - 1.20 mg/dL 11/06/2024 1:41 AM EDT [facility] BUN/Creatinine Ratio 22 11/06/2024 1:41 AM EDT [facility] Sodium, Plasma 136 136 - 145 mmol/L 11/06/2024 1:41 AM EDT [facility] Potassium, Plasma 4.5 3.6 - 4.9 mmol/L 11/06/2024 1:41 AM EDT [facility] Chloride, Plasma 104 97 - 107 mmol/L 11/06/2024 1:41 AM EDT [facility] CO2, Plasma 22 22 - 29 mmol/L 11/06/2024 1:41 AM EDT [facility] Anion Gap 10 6 - 16 mmol/L 11/06/2024 1:41 AM EDT [facility] Total Calcium, Plasma 9.0 8.9 - 10.2 mg/dL 11/06/2024 1:41 AM EDT [facility] eGFRcr 92.3 mL/min/1.7 3m*2 11/06/2024 1:41 AM EDT [facility] Comment:Reported eGFRcr in m L/min/1.73m2 is based the CKD-EPI 2020 equation that does not use a race coefficient. Blood Venous blood specimen / Unknown Venipuncture / Unknown 11/06/2024 1:07 AM EDT 11/06/2024 1:12 AM EDT us Nathaly Nowak MD LAB BLOOD ORDERABLES Final Resu lt Performing Organization Address [facility]/ZIP Co de Phone Number [facility] [address] [place] [address] * Phosphorus (11/06/2024 1:07 AM EDT) Phosphorus, Plasma 3.2 2.5 - 4.5 mg/dL 11/06/2024 1:41 AM EDT [facility] Blood Venous blood specimen / Unknown Venipuncture / Unknown 11/06/2024 1:07 AM EDT 11/06/2024 1:12 AM EDT Nathaly Nowak MD LAB BLOOD ORDERABLES Final Resu lt Performing Organization Address [facility] Co de Phone Number [facility] [address] [place] [address] * Magnesium (11/06/2024 1:07 AM EDT) Magnesium, Plasma 2.2 1.9 - 2.4 mg/dL 11/06/2024 1:41 AM EDT [facility] Blood Venous blood specimen / Unknown Venipuncture / Unknown 11/06/2024 1:07 AM EDT 11/06/2024 1:12 AM EDT Nathaly Nowak MD LAB BLOOD ORDERABLES Final Resu lt Performing Organization Address City/[facility]/ZIP Co de Phone Number [facility] [address] [place] [address] * (ABNORMAL) CBC (11/06/2024 1:07 AM EDT) WBC Count 9.70 3.70 - 10.30 10*3/uL LAB HEMATOLOGY METHOD 11/06/2024 1:19 AM EDT [facility] RBC Count 2.89(L) 4.60 - 6.10 10*6/uL LAB HEMATOLOGY METHOD 11/06/2024 1:19 AM EDT [facility] HGB 8.8(L) 13.7 - 17.5 g/dL LAB HEMATOLOGY METHOD 11/06/2024 1:19 AM EDT [facility] HCT 26.2(L) 40.0 - 51.0 % LAB HEMATOLOGY METHOD 11/06/2024 1:19 AM EDT [facility] Platelet Count 542(H) 155 - 369 10*3/uL LAB HEMATOLOGY METHOD 11/06/2024 1:19 AM EDT [facility] MCV 91 79 - 98 fL LAB HEMATOLOGY METHOD 11/06/2024 1:19 AM EDT [facility] MCH 30.4 26.0 - 32.0 pg LAB HEMATOLOGY METHOD 11/06/2024 1:19 AM EDT [facility] MCHC 33.6 30.7 - 35.5 g/dL LAB HEMATOLOGY METHOD 11/06/2024 1:19 AM EDT [facility] RDW 13.2 11.5 - 14.5 % LAB HEMATOLOGY METHOD 11/06/2024 1:19 AM EDT [facility] MPV 8.7(L) 8.8 - 12.5 fL LAB HEMATOLOGY METHOD 11/06/2024 1:19 AM EDT [facility] nRBC 0.0 <=0.0 per 100 WBCs LAB HEMATOLOGY METHOD 11/06/2024 1:19 AM EDT [facility] Blood Venous blood specimen / Unknown Venipuncture / Unknown 11/06/2024 1:07 AM EDT 11/06/2024 1:12 AM EDT us Nathaly Nowak MD LAB BLOOD ORDERABLES Final Resu lt [facility] [address] [place] [address] * [facility] (11/06/2024 12:58 AM EDT) Extra Hold for add-ons 11/06/2024 3:21 AM EDT [facility] Comment:Auto resulted. Blood Venous blood specimen / Unknown 11/06/2024 12:58 AM EDT 11/06/2024 1:13 AM EDT us Nathaly Nowak MD LAB BLOOD ORDERABLES Final Resu lt Performing Organization Address [facility]/ZIP Co de Phone Number [facility] [address] [place] [address] * Gold Top (11/06/2024 12:58 AM EDT) Extra Hold for add-ons 11/06/2024 3:21 AM EDT [facility] Comment:Auto resulted. Blood Venous blood specimen / Unknown 11/06/2024 12:58 AM EDT 11/06/2024 1:13 AM EDT us Nathaly Nowak MD LAB BLOOD ORDERABLES Final Resu lt Performing Organization Address [facility] Co de Phone Number [facility] [address] [place] [address] * Light Green Top (11/06/2024 12:58 AM EDT) Extra Hold for add-ons 11/06/2024 3:21 AM EDT [facility] Comment:Auto resulted. Blood Venous blood specimen / Unknown 11/06/2024 12:58 AM EDT 11/06/2024 1:13 AM EDT us Nathaly Nowak MD LAB BLOOD ORDERABLES Final Resu lt Performing Organization Address [facility] Co de Phone Number [facility] [address] [place] [address] * Light Blue Top (11/06/2024 12:58 AM EDT) Extra Hold for add-ons 11/06/2024 3:21 AM EDT [facility] Comment:Auto resulted. Blood Venous blood specimen / Unknown 11/06/2024 12:58 AM EDT 11/06/2024 1:13 AM EDT us Nathaly Nowak MD LAB BLOOD ORDERABLES Final Resu lt Performing Organization Address [facility]/ZIP Co de Phone Number [facility] [address] [place] [address] * Light Blue Top (11/06/2024 12:58 AM EDT) Pathologist [facility] Extra Hold for add-ons 11/06/2024 3:21 AM EDT [facility] Comment:Auto resulted. Blood Venous blood specimen / Unknown 11/06/2024 12:58 AM EDT 11/06/2024 1:13 AM EDT Nathaly Nowak MD LAB BLOOD ORDERABLES Final Resu lt Performing Organization Address City/[facility]/ZIP Co de Phone Number [facility] [address] [place] [address] * (ABNORMAL) POCT glucose meter (11/06/2024 12:45 AM EDT) [facility] POCT Glucose 204(H) 74 - 99 mg/dL [...] Comment 11/06/2024 12:48 AM EDT [facility] Labor And Employment Paralegal ID Raj Laird 11/07/19 25 12:48 AM EDT [facility]ALTH[facility]ARE LAB Device ID [id number] 11/06/2024 12:48 AM EDT [facility] Specimen Type POC Capillary 11/06/2024 12:48 AM EDT [facility] Blood Capillary blood specimen / Unknown 11/06/2024 12:45 AM EDT 11/06/2024 12:48 AM EDT us Nathaly Nowak MD LAB POINT OF CARE TE ST DOCKED DEVICE UNSOLICITED RESULTS Final Result Performing Organization Address City/[facility]/[place] Co de Phone Number [facility] [address] [place] [address] documented in this encounter Visit Diagnoses Diagnosis [...] Intravenous, Every 12 hours, First dose on [facility] 11/09/24 at 1515, Until Discontinued, Routine [...] Routine, severe pain 0836 (Given - Provider: eDvora Bo)1353 (Given - Provider: Devora Bo) 0018 [...] documented as of this encounter Care Teams [place] Relationship Specialty Start Date End Date Asad Victor MD [address] [place] [address] PCP - General 10/07/22 documented as of this encounter
--- OUTSIDE RECORDS SUMMARY | 2024-11-06 10:08 | XMS_ITS | Encounter Summary ---
Author Organization Healthcare Address [address] [place] [address] Care Team Providers Care Trimmer Helper Name Role Phone Asad Victor MD Primary Care Provider + [phone] Reason for Visit * Reason Comments Post-op Problem Wound Check * Auth/Cert (Routine) Specialty Diagnoses / Procedures Referred By Contac t Referred To Contact Diagnoses Wound infection Post-op Vasc Sx wounds - sx on 10/17 at Nathaly Nowak MD [address] [address] Phone: tel: fax: [facility] Emergency [facility] [address] [place] [address] Phone: tel: Referral ID Status Reason Start Date Expiration Date Visits Re quested Visits Authorized [id number] 1 1 Encounter Details Date Type Department Care Team (Late st Contact Info) Description 11/06/2024 10:08 AM EDT - 11/06/2024 11:38 AM EDT Surgery [facility] OPERATING ROOM [address] [place] [address] Nathaly Nowak MD [id number] [place] [address] Left groin exploration and washout, [...] Have you had a drink first t idno in the morning ([employer]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 0 10/18/2021 CAGE Questionnaire Score 0 022 Utilities Answer Date Recorded In the past 12 months has [employer], gas, oil, or water [employer] threatened to shut off services in your [...] Carmona with any questions or concerns at [phone]. It is important that you get your [...] Note Bev Borja 64 y.o. male CSN: [id number] Admission: 11/05/2024 9:45 PM Primary Problem: Wound infection Primary Retread Mold Operator: Primary Caregiver: Self Assistance Available at [...] previous admission in last 30 days Follow-up: [facility] [address] [facility] [address] Go to Infusion Clinic. Please arrive at 11 am daily. [facility] [address] Go to Wound care clinic. First appointment is 1:10 pm. Please call [phone] with scheduling concerns. Discharge Transportation: Transportation Anticipated: medical transport Transportation Home at Discharge: Medical Transport Follow Up Transport: Transportation Needed to Follow up Appoinments: Medical Transport Additional Comments: Patient discharging home. No other SW needs identified. Mariia Monterroso CURATOR HERBARIUM * Discharge Summary - Melecio Echevarria DO - 11/14/2024 12:46 PM EDT Hospitalization Admit Date/Time: 11/05/2024 9:45 PM Admitting Attending: Nathaly Nowak Discharge Date: 11/14/2024 Discharge Attending Physician: Nathaly Nowak MD PCP name and Address: Asad Victor MD (Inactive) [address] [place] [address] / [address] [address] Referring provider name and address: Wade Cowart, DO [address] [place] [address] Chief Concern, Brief History of Present Illness, and Hospital Course Mr. Borja is a 64 y/o male that presented to [facility] on 11/06/2024 for surgical wound infection [...] Your Medications [facility] - GLENDA Solorzano - [address], [place] [address] ertapenem injection micafungin injection Discharge Diagnosis Medical [...] [facility] 1 [facility] 11/26/2024 2:30 PM [facility] 2 [facility] 11/26/2024 3:20 PM [facility] Schuster [facility] 11/29/2024 2:30 PM Oscar Appiah MD [id number] [place] Test Results Pending At Discharge Pending Labs [...] a 64 y/o male that presented to [facility] on 11/06/2024 for surgical wound infection [...] Note Bev Borja 64 y.o. male CSN: [id number] Admission: 11/05/2024 9:45 PM Primary Problem: Wound infection Wound vac to be delivered today by at bedside. SW [facility] (fax [phone]) and infusion clinic (fax [phone]). Plan to discharge tomorrow. SW will continue to follow. Mariia Monterroso CURATOR HERBARIUM * Progress Notes - Bianca Knight PharmD - 11/13/2024 12:55 PM EDT Vancomycin therapy has been stopped per ID recommendation. Pharmacist will sign off from dosing and monitoring vancomycin. Please re- consult a pharmacist if more vancomycin is indicated. Bianca Knight PharmD, [facility] * Progress Notes - Ailin [...] Lumen PICC Antimicrobial Regimen: IV Ertapenem 1g [id number] start date:11/06/2024 Projected End date:12/18/2024 IV Micafungin 150mg [id number] Start date: 11/12/2024 Projected End Date: 12/24/2024 [...] OPAT Team Attn: Dr Kraus Fax #: [phone] Appointments: (Dr Appiah 08/02/2024 at 2.30pm) at: [facility]: [address] [place] [address] (Select Option 3 for IV Antibiotic / PICC line related issues) For questions regarding OPAT prior to discharge, reach out to the OPAT team via [employer] Secure Chat (Group: OPAT Referral Team). For all questions regarding OPAT after discharge should be directed to the OPAT Team at (Select Option 3 for IV Antibiotics/PICC Issues) between 8am-5pm. After 5 pm, or during weekends/ holidays, please call the paging injection machine operator at to reach the on-call [...] the original note were not included. [facility] Department of Surgery Division of Vascular Surgery Surgery Progress Note 11/13/24 Bev Borja Subjective Subjective: HPI 64yoM PMHx COPD, T2DM, HLD, HTN, RLS, CAD s/p PCI (on Xarelto) s/p pacemaker c/b left SANDIP pseudoaneurysm s/p thrombin injection 09/21/24, CLI s/p left femoral endarterectomy with EIA/CRUISE COORDINATOR stenting 10/17/24, who presented to [facility] 11/05/2024 with wound infection. 11/06/24: [...] 09/21/24, CLI s/p left femoral endarterectomy with EIA/CRUISE COORDINATOR stenting 10/17/24, who presented to [facility] 11/05/2024 with wound infection. POD [...] the findings. Cardiac Device Check - PRE[facility] EP-Device Clinic: Pre-operative CIED Report Assessment and Sara-Procedural Reommendations: Name: Bev Borja Date: 10/17/2024 : 1960 Age: 64 y.o. Patient has a Health Safety Manager: Berger HOLISTIC PULSER-PM Remaining battery longevity adequate. Lead integrity test [...] recommendations. Supporting reports can be found in Credible media file. Micro: Susceptibility data from last [...] Units Date/Time Tissue Culture and Gram Stain [[id number]] (Abnormal) (Susceptibility) Collected: 11/06/24 1134 Order Status: Completed Specimen: Tissue from Other (specify site) Updated: 11/12/24 1334 Culture Moderate Growth 2+ Enterobacter cloacae complex Comment: This isolate has been identified using the FDA Approved Meteo-Logicyper CA System The organism value for this result has been updated. These results have been appended to the previously preliminary verified report. Edited result: Previously reported as Gram Negative Jesus on 11/07/2024 at 1434 EDT. 2+ Streptococcus mitis/oralis group Comment: This isolate has been identified using the FDA Approved MALDI IKO Systemyper CA System The organism value for this result has been updated. These results have been appended to the previously preliminary verified report. 2+ Pasteurella stomatis Comment: This result was determined by MALDI tof mass spectrometry using the [employer] database and is for research use only. [...] stewardship team. Comprehensive GI Panel by PCR [[id number]] (Normal) Collected: 11/12/24 0950 Order Status: Completed [...] if clinically indicated. Clostridiodes (Clostridium) difficile PCR [[id number]] (Normal) Collected: 11/12/24 0950 Order Status: Completed [...] high complexity clinical laboratory testing. Anaerobic Culture [[id number]] Collected: 11/06/24 1128 Order Status: Completed Specimen: Swab from Other (specify site) Updated: 11/12/24 1118 Culture No growth at day 4 Fungal Culture, Tissue and ISIDRO [[id number]] (Abnormal) Collected: 11/06/24 1134 Order Status: Completed Specimen: Tissue from Other (specify site) Updated: 11/12/24 1033 Culture Reading Mycological 4 Weeks Rare [place] Sana parapsilosis Comment: This isolate has been identified using the FDA Approved MALDI IKO Systemyper CA System The organism value for this result has been updated. These results have been appended to the previously preliminary verified report. Edited result: Previously reported as Yeast on 11/11/2024 at 1317 EDT. ISIDRO No fungal elements seen Additional Susceptibilities and/or Identification [[id number]] Collected: 11/11/24 1240 Order Status: Completed Specimen: Tissue from Wound (specify site): Additional Susceptibilities and/or Identification [[id number]] Collected: 11/11/24 1238 Order Status: Completed Specimen: Tissue from Wound (specify site): Additional Susceptibilities and/or Identification [[id number]] Collected: 11/11/24 1237 Order Status: Completed Specimen: Tissue from Wound (specify site): AFB Culture, Non Respiratory Source and Acid Fast Stain [[id number]] Collected: 11/06/24 1134 Order Status: Completed Specimen: Tissue from Other (specify site) Updated: 11/11/24 0938 AFB Culture No Mycobacterial Growth <1 Week Acid Fast Stain No acid fast bacilli seen Blood Culture (Aerobic/Anaerobet Set) [[id number]] Collected: 11/06/24106 Order Status: Completed Specimen: Blood from AC, Left Updated: 11/11/24 0301 Culture No growth at day 5 Blood Culture (Aerobic/Anaerobet Set) [[id number]] Collected: 11/06/24106 Order Status: Completed Specimen: Blood [...] [facility]. [facility] [...] to stay a facility, plan for h [facility] daily IV abx. Plan for [...] tablet 1,000 mg 1,000 mg Oral q6h [facility] Anthony Reyes MD 1,000 mg at 11/12/24 [...] Prevent or Manage Pain Flowsheets (Taken 11/11/2024 3455 by Jonathan Vale RN) Sensory Stimulation Regulation: care clustered lighting decreased quiet environment promoted Medication Review/Management: medications reviewed * Consults - Anabel Ovalle RD - 11/12/2024 9:59 AM EDT Adult Nutrition Evaluation Note Bev Borja 64 y.o. male CSN: [id number] Room/Bed 682/682B Nutrition evaluation type: assessment Reason for evaluation: LOS Hospital course: 64 y.o. male with PMHx significant for COPD, CAD s/p PCI (on Xarelto) s/p pacemaker c/b left SANDIP pseudoaneurysm s/p thrombin injection 09/21/24, chronic limb ischemia s/p left femoralendarterectomy with external iliac/common femoral artery stenting 10/17/24, T2DM, HLD, HTN, RLS who presented to the [facility] on 11[facility]2024 with problems with [...] (Room air) O2 Delivery Method: Face tent [place] Coma Scale Score: 15 Loi Scale Score: [...] (194 lb 3.6 oz) BMI (Calculated): 30.41 [place] Body Weight (kg): 67.3 Percent [place] Body Weight: 131 Adjusted Body Weight (kg): [...] oz) Estimated Needs: Kcal/ K-30 Kcal Provided: 6143-2763 Kcal Needs Based On: Adjusted weight Gm Protein/ Kg : 1.2-1.5 Protein Provided: 87-108 Protein Needs Based On: Adjusted weight Metabolic Cart Study Results: Current Nutrition Intake: Diet Order: Adult Diet Diet Texture: Regular Adult Carbohydrate Restriction: Consistent CHO 1 (6276-2273 Jatinder, 65 g/meal) Percent Meals Eaten (%): [...] ENDARTERECTOMY N/A 2017 Endarterectomy Carotid Artery from [employer] CORONARY ANGIOPLASTY Left Coronary Angiography With Concomitant Left Heart Catheterization from [employer] CORONARY ARTERY BYPASS GRAFT N/A 2018 3V ELBOW SURGERY Right ENDARTERECTOMY Left 10/17/2024 common/SFA/Profunda thromboendarterectomy, EIA/CRUISE COORDINATOR stent HERNIA REPAIR KNEE ARTHROSCOPY Left VASCULAR SURGERY Left 09/21/2024 CRUISE COORDINATOR pseudoaneurym injection [3] Social History Tobacco Use [...] from the original note were not included. [facility] Department of Surgery Division of Vascular Surgery Surgery Progress Note 11/12/24 Bev Perez Cristoferkeo Subjective Subjective: HPI 64yoM PMHx COPD, T2DM, HLD, HTN, RLS, CAD s/p PCI (on Xarelto) s/p pacemaker c/b left SANDIP pseudoaneurysm s/p thrombin injection 09/21/24, CLI s/p left femoral endarterectomy with EIA/CRUISE COORDINATOR stenting 10/17/24, who presented to [facility] 11/05/2024 with wound infection. 11/06/24: [...] 09/21/24, CLI s/p left femoral endarterectomy with EIA/CRUISE COORDINATOR stenting 10/17/24, who presented to [facility] 11/05/2024 with wound infection. POD [...] the findings. Cardiac Device Check - PRE[facility] EP-Device Clinic: Pre-operative CIED Report Assessment and Sara-Procedural Reommendations: Name: Bev Broja Date: 10/17/2024 : 1960 Age: 64 y.o. Patient has a Health Safety Manager: Kidlandia HOLISTIC PULSER-PM Remaining battery longevity adequate. Lead integrity test [...] recommendations. Supporting reports can be found in Credible media file. Micro: Susceptibility data from last [...] Units Date/Time Tissue Culture and Gram Stain [[id number]] (Abnormal) (Susceptibility) Collected: 11/06/24 1134 Order Status: Completed Specimen: Tissue from Other (specify site) Updated: 11/12/24 1334 Culture Moderate Growth 2+ Enterobacter cloacae complex Comment: This isolate has been identified using the FDA Approved InteraXoner CA System The organism value for this result has been updated. These results have been appended to the previously preliminary verified report. Edited result: Previously reported as Gram Negative Jesus on 11/07/2024 at 1434 EDT. 2+ Streptococcus mitis/oralis group Comment: This isolate has been identified using the FDA Approved InteraXoner CA System The organism value for this result has been updated. These results have been appended to the previously preliminary verified report. 2+ Pasteurella stomatis Comment: This result was determined by MALDI tof mass spectrometry using the [employer] database and is for research use only. [...] stewardship team. Comprehensive GI Panel by PCR [[id number]] (Normal) Collected: 11/12/24 0950 Order Status: Completed [...] if clinically indicated. Clostridiodes (Clostridium) difficile PCR [[id number]] (Normal) Collected: 11/12/24 0950 Order Status: Completed [...] high complexity clinical laboratory testing. Anaerobic Culture [[id number]] Collected: 11/06/24 1128 Order Status: Completed Specimen: Swab from Other (specify site) Updated: 11/12/24 1118 Culture No growth at day 4 Fungal Culture, Tissue and ISIDRO [[id number]] (Abnormal) Collected: 11/06/24 1134 Order Status: Completed Specimen: Tissue from Other (specify site) Updated: 11/12/24 1033 Culture Reading Mycological 4 Weeks Rare [place] Sana parapsilosis Comment: This isolate has been identified using the FDA Approved Meteo-Logicyper CA System The organism value for this result has been updated. These results have been appended to the previously preliminary verified report. Edited result: Previously reported as Yeast on 11/11/2024 at 1317 EDT. ISIDRO No fungal elements seen Additional Susceptibilities and/or Identification [[id number]] Collected: 11/11/24 1240 Order Status: Completed Specimen: Tissue from Wound (specify site): Additional Susceptibilities and/or Identification [[id number]] Collected: 11/11/24 1238 Order Status: Completed Specimen: Tissue from Wound (specify site): Additional Susceptibilities and/or Identification [[id number]] Collected: 11/11/24 1237 Order Status: Completed Specimen: Tissue from Wound (specify site): AFB Culture, Non Respiratory Source and Acid Fast Stain [[id number]] Collected: 11/06/24 1134 Order Status: Completed Specimen: Tissue from Other (specify site) Updated: 11/11/24 0938 AFB Culture No Mycobacterial Growth <1 Week Acid Fast Stain No acid fast bacilli seen Blood Culture (Aerobic/Anaerobet Set) [[id number]] Collected: 11/06/24106 Order Status: Completed Specimen: Blood from AC, Left Updated: 11/11/24 0301 Culture No growth at day 5 Blood Culture (Aerobic/Anaerobet Set) [[id number]] Collected: 11/06/24106 Order Status: Completed Specimen: Blood [...] OSH. On 11/06, pt went to the [facility] vascular surgery for left groin [...] up, 11/29 at 2:[address] Apipah Thank you for allowing us to participate in this patient's care. GEN ID will continue to follow. Dotty Sethi MD PGY1 History, assessment, and plan discussed with ID attending [1] Current Facility-Administered Medications Medication Dose Route Frequency Provider Last Rate Last Admin acetaminophen (Tylenol) tablet 1,000 mg 1,000 mg Oral q6h [facility] Anthony Reyes MD 1,000 mg at 11/12/24 1356 aspirin chewable tablet 81 mg 81 mg Oral Daily Reid Daniels MD 81 mg at 11/12/24 0938 cefepime (Maxipime) 2 g in sodium chloride 0.9% 100 mL IVPB (vial adapter required) 2 g Wiebxiclpetc7v Reid Daniels MD 36.7 mL/hr at 11/12/24 [...] PM Anthony Reyes MD 0.4 mg at [id number] Vancomycin HCl in NaCl (Vancocin) IVPB 1,000 [...] send him home on micafungin as Rare [place] Sana parapsilosis grew and we do not [...] Note Bev Borja 64 y.o. male CSN: [id number] Admission: 11/05/2024 9:45 PM Primary Problem: Wound infection Patient refusing inpatient placement for IV abx. [facility] infusion clinic can provide treatment. Face sheet, IV abx orders, and order for PICC care/labs/dressing changes need to be faxed to [phone]. Voicemail left with wound care clinic. Wound vac approved per , delivery pending. Cyrsll continue to follow. Mariia Monterroso CURATOR HERBARIUM * Progress Notes - Dotty Sethi MD [...] the findings. Cardiac Device Check - PRE[facility] EP-Device Clinic: Pre-operative CIED Report Assessment and Sara-Procedural Reommendations: Name: Bev Borja Date: 10/17/2024 : 1960 Age: 64 y.o. Patient has a Health Safety Manager: Berger HOLISTIC PULSER-PM Remaining battery longevity adequate. Lead integrity test [...] recommendations. Supporting reports can be found in Credible media file. Micro: Susceptibility data from last [...] Non Respiratory Source and Acid Fast Stain [[id number]] Collected: 11/06/24 1134 Order Status: Completed Specimen: Tissue from Other (specify site) Updated: 11/11/24 0938 AFB Culture No Mycobacterial Growth <1 Week Acid Fast Stain No acid fast bacilli seen Blood Culture (Aerobic/Anaerobet Set) [[id number]] Collected: 11/06/24106 Order Status: Completed Specimen: Blood from AC, Left Updated: 11/11/24 0301 Culture No growth at day 5 Blood Culture (Aerobic/Anaerobet Set) [[id number]] Collected: 11/06/24 010 Order Status: Completed Specimen: Blood from Hand, Right Updated: 11/11/24 0249 Culture No growth at day 5 Anaerobic Culture [[id number]] Collected: 11/06/24 1128 Order Status: Completed Specimen: Swab from Other (specify site) Updated: 11/10/24 1441 Culture No growth at day 4 Routine Culture and Gram Stain [[id number]] Collected: 11/06/24 1128 Order Status: Completed Specimen: Swab from Other (specify site) Updated: 11/10/24 1124 Culture No growth at day 4 Gram Stain Result No organisms seen No polymorphonuclear leukocytes seen Anaerobic Culture [[id number]] (Abnormal) Collected: 11/06/24 112 Order Status: Completed Specimen: Swab from Other (specify site) Updated: 11/10/24 0718 Culture No anaerobes isolated Mixed skin clifton Comment: The organism value for this result has been updated. These results have been appended to the previously preliminary verified report. Narrative: Mixed Skin Clifton includes Streptococcus mitis/oralis group and Staphylococcus Pseudintermedius Anaerobic Culture [[id number]] (Abnormal) Collected: 11/06/24 1134 Order Status: Completed [...] OSH. On 11/06, pt went to the [facility] vascular surgery for left groin [...] mL IVPB (vial adapter required) 2 g Djbetioizbyc9s Reid Daniels MD 36.7 mL/hr at 11/11/24 [...] PM Anthony Reyes MD 0.4 mg at [id number] Vancomycin HCl in NaCl (Vancocin) IVPB 1,000 [...] from the original note were not included. [facility] Department of Surgery Division of Vascular Surgery Surgery Progress Note 11/11/24 Bev Borja Subjective Subjective: HPI 64yoM PMHx COPD, T2DM, HLD, HTN, RLS, CAD s/p PCI (on Xarelto) s/p pacemaker c/b left SANDIP pseudoaneurysm s/p thrombin injection 09/21/24, CLI s/p left femoral endarterectomy with EIA/CRUISE COORDINATOR stenting 10/17/24, who presented to [facility] 11/05/2024 with wound infection. 11/06/24: [...] 09/21/24, CLI s/p left femoral endarterectomy with EIA/CRUISE COORDINATOR stenting 10/17/24, who presented to [facility] 11/05/2024 with wound infection. POD [...] to follow, Submitted by: Kalpesh Lord PharmD, [facility] 11/10/2024 12:45 PM * Care [...] 09/21/24, CLI s/p left femoral endarterectomy with EIA/CRUISE COORDINATOR stenting 10/17/24, who presented to [facility] 11/05/2024 with wound infection. 11/06/24: [...] 09/21/24, CLI s/p left femoral endarterectomy with EIA/CRUISE COORDINATOR stenting 10/17/24, who presented to [facility] 11/05/2024 with wound infection. POD [...] Barraza RN Authorized by: Nathaly Nowak MD Dwight Protocol: Verbal consent obtained?: Yes Written consent [...] selection rationale: Left pacemaker Catheter Lot #: [id number] Catheter gate supervisor: Konoz Catheter placed: Single lumen Catheter size: 4 [...] 09/21/24, CLI s/p left femoral endarterectomy with EIA/CRUISE COORDINATOR stenting 10/17/24, who presented to [facility] 11/05/2024 with wound infection. 11/06/24: [...] 09/21/24, CLI s/p left femoral endarterectomy with EIA/CRUISE COORDINATOR stenting 10/17/24, who presented to [facility] 11/05/2024 with wound infection. POD [...] session. Patient reports he went to [facility] 12th floor via w/c yesterday [...] Mobility: Ambulatory- community (was utilizing scooter at [employer] since discharge) Mobility Leon: Independent gait with device History of Falls: [...] Mobility Bed Mobility Exam: Scooting/Bridging Level of Leon: Modified independence Bed Mobility Exam: Supine to Sit Level of Leon: Modified Leon Transfers Transfer Exam: Sit to stand Level of Leon: Modified independence Assistive Device: Rollator Transfer Exam: Stand to Sit Level of Leon: Modified independence Assistive Device: Rollator Ambulation Device: [...] functional mobility and endurance. Standardized Assessments [facility] 6-Clicks Mobility Assessment Difficulty patient has [...] steps with a railing?: A little [facility] 6-Clicks Mobility Assessment Total : 22 [...] Mobility Ambulatory- community (was utilizing scooter at [employer] since discharge) Mobility Leon Independent gait with device History of Falls [...] distal to knee) BED MOBILITY Level of Leon Physical/Non-physical Assist Adaptive Equipment Utilized Scooting/ Bridging Modified independence Supine to Sit Modified Leon TRANSFERS Level of Leon Physical/Non-physical Assist Adaptive Equipment Utilized Sit to Stand Modified independence Rollator Stand to sit Modified independence Rollator Toilet Transfer Modified independence Grab bar FUNCTIONAL MOBILITY Ambulation Modified independent 200ft x2 with seated rest break between bouts; RPE 5-7/10. Cues forsafety with rollator brakes. Rollator Comments BALANCE Postural Appearance Posture: Within Functional Limits Level of Leon Balance Support Static Sit Independent Feet supported Dynamic Sit Independent Feet supported Static Stand Independent Right upper extremity support, Left upper extremity support (via rollator) Dynamic Stand Independent Right upper extremity support, Left upper extremity support (via rollator) STANDARDIZED ASSESSMENTS [facility] 6-Click Daily Activities Help from Other: Don/Doff Regular Lower Body Clothings: None Help From Other: Bathing: None Help From Other: Toileting: None Help From Other: Don/Doff Upper Body Clothings: None Help From Other: Grooming: None Help From Other: Eating Meals: None [facility] 6 Click - Daily Activities Score: 24 [...] needed areas of treatment space. Level of Leon Interventions Grooming Modified independent Standing sinkside Pt [...] Note Bev Borja 64 y.o. male CSN: [id number] Admission: 11/05/2024 9:45 PM Primary Problem: Wound [...] follow and assist as needed. Mariia Monterroso CURATOR HERBARIUM * Progress Notes - Bianca Knight PharmD [...] to follow, Submitted by: Bianca Knight, PharmD, [facility] 11/08/2024 11:15 AM * Progress Notes - Melecio Echevarria DO - 11/08/2024 7:18 AM EDT Images from the original note were not included. [facility] Department of Surgery Division of Vascular Surgery Surgery Progress Note 11/08/24 Bev Borja Subjective Subjective: HPI 64yoM PMHx COPD, T2DM, HLD, HTN, RLS, CAD s/p PCI (on Xarelto) s/p pacemaker c/b left SANDIP pseudoaneurysm s/p thrombin injection 09/21/24, CLI s/p left femoral endarterectomy with EIA/CRUISE COORDINATOR stenting 10/17/24, who presented to [facility] 11/05/2024 with wound infection. 11/06/24: [...] Pseudoaneurysm of left femoral artery ([facility]) COPD (chronic obstructive pulmonary disease) ([facility]) Overview Signed 10/18/2021 7:30 PM by Gallo Gallardo MD Not on home inhalers A-fib ([facility]) Overview Addendum 10/19/2021 10:39 AM by Giovanna Junior APRN Hold anticoagulation Metoprolol restarted BPH (benign prostatic hyperplasia)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 7:16 AM EDT [facility] Comment:Reported eGFRcr in m L/min/1.73m2 is based the CKD-EPI 2020 equation that does not use a race coefficient. Blood Venous blood specimen / Unknown Venipuncture / Unknown 11/13/2024 6:37 AM EDT 11/13/2024 6:44 AM EDT us Nathaly Nowak MD LAB BLOOD ORDERABLES Final Resu lt [facility] [address] [place] [address] * (ABNORMAL) POCT glucose meter (11/12/2024 8:27 [...] 11/12/2024 8:29 PM EDT [facility] Pharmacy Assistant ID Nelda Gerber 11/13/19 8:29 PM EDT [facility]ALTH[facility]ARE LAB Device ID [id number] 11/12/2024 8:29 PM EDT [facility] Specimen Type POC Capillary 11/12/2024 8:29 PM EDT [facility] Blood Capillary blood specimen / Unknown 11/12/2024 8:27 PM EDT 11/12/2024 8:29 PM EDT Nathaly Nowak MD LAB POINT OF CARE TE ST DOCKED DEVICE UNSOLICITED RESULTS Final Result [facility] [address] [place] [address] * (ABNORMAL) POCT glucose meter (11/12/2024 5:08 PM EDT) [facility] POCT Glucose 157(H) 74 - 99 [...] 11/12/2024 5:10 PM EDT [facility] Pharmacy Assistant ID BradenWade 5:10 PM EDT [facility] Device ID [id number] 11/12/2024 5:10 PM EDT [facility] Specimen Type POC Capillary 11/12/2024 5:10 PM EDT [facility] Blood Capillary blood specimen / Unknown 11/12/2024 5:08 PM EDT 11/12/2024 5:10 PM EDT us Nathaly Nowak MD LAB POINT OF CARE TE ST DOCKED DEVICE UNSOLICITED RESULTS Final Result Performing Organization Address City/[facility] Co de Phone Number [facility] [address] [place] [address] * (ABNORMAL) POCT glucose meter (11/12/2024 12:36 PM EDT) Pathologist [facility] POCT Glucose 224(H) 74 - 99 mg/dL [...] Comment 11/12/2024 12:38 PM EDT [facility] Pharmacy Assistant ID Wdae Feliciano Tobias 12:38 PM EDT [facility] Device ID [id number] 11/12/2024 12:38 PM EDT [facility] Specimen Type POC Capillary 11/12/2024 12:38 PM EDT [facility] Blood Capillary blood specimen / Unknown 11/12/2024 12:36 PM EDT 11/12/2024 12:38 PM EDT us Nathaly Nowak MD LAB POINT OF CARE TE ST DOCKED DEVICE UNSOLICITED RESULTS Final Result Performing Organization Address City/[facility]/ZIP Co de Phone Number [facility] [address] [place] [address] * Clostridiodes (Clostridium) difficile PCR (11/12/2024 9:50 AM EDT) [facility] C difficile PCR toxin B gene DNA Result Not Detected Not Detected 11/12/2024 11:54 AM EDT [facility] Stool Rectum structure / Unknown Non-blood Collection / Unknown 11/12/2024 9:50 AM EDT 11/12/2024 10:04 AM EDT Narrative [facility] - 11/12/2024 11:54 AM [...] Nowak MD LAB MICROBIOLOGY - GENERAL ORDE [facility] Final Result [facility] [address] [place] [address] * Comprehensive GI Panel by PCR (11/12/2024 9:50 AM EDT) Campylobacter PCR Result Not Detected Not Detected 11/12/2024 2:47 PM EDT [facility] Plesiomonas shigelloides PCR Result Not Detected Not Detected 11/12/2024 2:47 PM EDT [facility] Salmonella PCR Result Not Detected Not Detected 11/12/2024 2:47 PM EDT [facility] Vibrio species PCR Result Not Detected Not Detected 11/12/2024 2:47 PM EDT [facility] Vibrio cholerae PCR Result Not Detected Not Detected 11/12/2024 2:47 PM EDT [facility] Yersinia enterocolitica PCR Result Not Detected Not Detected 11/12/2024 2:47 PM EDT [facility] Enteroaggregative E. coli (EAEC) PCR Result Not Detected Not Detected 11/12/2024 2:47 PM EDT [facility] Enteropathogenic E. coli (EPEC) PCR Result Not Detected Not Detected 11/12/2024 2:47 PM EDT [facility] Enterotoxigenic E. coli (ETEC) lt/st PCR Result Not Detected Not Detected 11/12/2024 2:47 PM EDT [facility] Shiga-like Toxin-Producing E.coli (STEC) stx1/stx2 PCR Resu Not Detected Not Detected 11/12/2024 2:47 PM EDT [facility] E coli 0157 PCR Result Not Detected Not Detected 11/12/2024 2:47 PM EDT [facility] Shigella/Enteroinvas tam E. coli (EIEC) PCR Result Not Detected Not Detected 11/12/2024 2:47 PM EDT [facility] Cryptosporidium PCR Result Not Detected Not Detected 11/12/2024 2:47 PM EDT [facility] Cyclospora cayetanensis PCR Result Not Detected Not Detected 11/12/2024 2:47 PM EDT [facility] Entamoeba histolytica PCR Result Not Detected Not Detected 11/12/2024 2:47 PM EDT [facility] Giardia duodenalis (aka Giardia lamblia) PCR Result Not Detected Not Detected 11/12/2024 2:47 PM EDT [facility] Adenovirus F 40/41 PCR Result Not Detected Not Detected 11/12/2024 2:47 PM EDT [facility] Astrovirus PCR Result Not Detected Not Detected 11/12/2024 2:47 PM EDT [facility] Norovirus GI/GII PCR Result Not Detected Not Detected 11/12/2024 2:47 PM EDT [facility] Rotavirus A PCR Result Not Detected Not Detected 11/12/2024 2:47 PM EDT [facility] Sapovirus PCR Result Not Detected Not Detected 11/12/2024 2:47 PM EDT [facility] Stool Rectum structure / Unknown Non-blood Collection / Unknown 11/12/2024 9:50 AM EDT 11/12/2024 10:04 AM EDT Narrative [facility] - 11/12/2024 2:47 PM [...] ORDE RABLES Final Result Performing Organization Address [facility]/ZIP Co de Phone Number [facility] [address] [place] [address] * C-reactive protein (11/12/2024 9:48 AM EDT) [facility] CRP, Plasma <3.0 <=8.0 mg/L 11/12/2024 10:28 AM EDT [facility] Blood Venous blood specimen / Unknown Venipuncture / Unknown 11/12/2024 9:48 AM EDT 11/12/2024 9:59 AM EDT Narrative [facility] - 11/12/2024 10:28 AM EDT This CRP test is appropriate for assessment of infection, systemic inflammation and/or tissue injury. To assess cardiovascular disease risk order high sensitivity CRP (CRPH). Nathaly Nowak MD LAB BLOOD ORDERABLES Final Resu lt Performing Organization Address [facility] Co de Phone Number [facility] [address] [place] [address] * (ABNORMAL) POCT glucose meter (11/12/2024 8:20 AM EDT) [facility] POCT Glucose 138(H) 74 - [...] Comment 11/12/2024 8:21 AM EDT [facility] Pharmacy Assistant ID Wade Feliciano 8:21 AM EDT [facility] LAB Device ID [id number] 11/12/2024 8:21 AM EDT [facility] Specimen Type POC Capillary 11/12/2024 8:21 AM EDT [facility] Blood Capillary blood specimen / Unknown 11/12/2024 8:20 AM EDT 11/12/2024 8:21 AM EDT Nathaly Nowak MD LAB POINT OF CARE TE ST DOCKED DEVICE UNSOLICITED RESULTS Final Result Performing Organization Address [facility] Co de Phone Number [facility] [address] [place] [address] * (ABNORMAL) POCT glucose meter (11/11/2024 8:18 PM EDT) [facility] POCT Glucose 248(H) 74 - 99 [...] Comment 11/11/2024 8:20 PM EDT [facility] Pharmacy Assistant ID Nelda Gerber 11/12/19 8:20 PM EDT [facility]ARE LAB Device ID [id number] 11/11/2024 8:20 PM EDT [facility] Specimen Type POC Capillary 11/11/2024 8:20 PM EDT [facility] Blood Capillary blood specimen / Unknown 11/11/2024 8:18 PM EDT 11/11/2024 8:20 PM EDT Nathaly Nowak MD LAB POINT OF CARE TE ST DOCKED DEVICE UNSOLICITED RESULTS Final Result Performing Organization Address City/[facility] Co de Phone Number [facility] [address] [place] [address] * (ABNORMAL) POCT glucose meter (11/11/2024 5:59 PM EDT) [facility] POCT Glucose 147(H) 74 - [...] Comment 11/11/2024 6:01 PM EDT [facility] Pharmacy Assistant ID Wade Feliciano 6:01 PM EDT [facility] LAB Device ID [id number] 11/11/2024 6:01 PM EDT [facility] Specimen Type POC Capillary 11/11/2024 6:01 PM EDT [facility] Blood Capillary blood specimen / Unknown 11/11/2024 5:59 PM EDT 11/11/2024 6:01 PM EDT Nathaly Nowak MD LAB POINT OF CARE TE ST DOCKED DEVICE UNSOLICITED RESULTS Final Result Performing Organization Address City/[facility]/ZIP Co de Phone Number [facility] [address] [place] [address] * POCT glucose meter (11/11/2024 5:20 PM EDT) [facility] POCT Glucose 84 74 - [...] Comment 11/11/2024 5:22 PM EDT [facility] Pharmacy Assistant ID Wade Feliciano 5:22 PM EDT [facility] Device ID [id number] 11/11/2024 5:22 PM EDT [facility] Specimen Type POC Capillary 11/11/2024 5:22 PM EDT [facility] Blood Capillary blood specimen / Unknown 11/11/2024 5:20 PM EDT 11/11/2024 5:22 PM EDT us Nathaly Nowak MD LAB POINT OF CARE TE ST DOCKED DEVICE UNSOLICITED RESULTS Final Result [facility] [address] [place] [id number] * IN NEGATIVE PRESSURE WOUND THERAPY DME [...] 11/11/2024 12:10 PM EDT [facility] Pharmacy Assistant ID BradenWade 12:10 PM EDT [facility] Device ID [id number] 11/11/2024 12:10 PM EDT [facility] Specimen Type POC Capillary 11/11/2024 12:10 PM EDT [facility] Blood Capillary blood specimen / Unknown 11/11/2024 12:08 PM EDT 11/11/2024 12:10 PM EDT us Nathaly Nowak MD LAB POINT OF CARE TE ST DOCKED DEVICE UNSOLICITED RESULTS Final Result [facility] [address] [place] [address] * (ABNORMAL) POCT glucose meter (11/11/2024 9:08 AM EDT) POCT Glucose 162(H) 74 - 99 mg/dL 11/11/2024 9:09 AM EDT [facility] Comment:Accuracy of a glucos e result [...] for testing. Comment 11/11/2024 9:09 AM EDT [facility] Pharmacy Assistant ID Wade Feliciano 9:09 AM EDT [facility] Device ID [id number] 11/11/2024 9:09 AM EDT [facility] Specimen Type POC Capillary 11/11/2024 9:09 AM EDT [facility] Blood Capillary blood specimen / Unknown 11/11/2024 9:08 AM EDT 11/11/2024 9:09 AM EDT us Nathaly Nowak MD LAB POINT OF CARE TE ST DOCKED DEVICE UNSOLICITED RESULTS Final Result [facility] [address] [place] [address] * POCT glucose meter (11/11/2024 8:27 AM EDT) Pathologist [facility] POCT Glucose 87 74 - 99 mg/dL 11/11/2024 8:28 AM EDT [facility] Comment:Accuracy of a glucos e result [...] Comment 11/11/2024 8:28 AM EDT [facility] Pharmacy Assistant ID Wade Feliciano 8:28 AM EDT [facility] LAB Device ID [id number] 11/11/2024 8:28 AM EDT [facility] Specimen Type POC Capillary 11/11/2024 8:28 AM EDT [facility] Blood Capillary blood specimen / Unknown 11/11/2024 8:27 AM EDT 11/11/2024 8:28 AM EDT us Nathaly Nowak MD LAB POINT OF CARE TE ST DOCKED DEVICE UNSOLICITED RESULTS Final Result [facility] [address] [place] [address] * (ABNORMAL) Basic Metabolic Panel, Plasma (11/11/2024 1:12 AM EDT) Glucose, Plasma 122(H) 74 - 99 mg/dL 11/11/2024 1:12 AM EDT [facility] BUN, Plasma 10 8 - 23 mg/dL 11/11/2024 1:12 AM EDT [facility] Creatinine, Plasma 0.82 0.70 - 1.20 mg/dL 11/11/2024 1:12 AM EDT [facility] BUN/Creatinine Ratio 12 11/11/2024 1:12 AM EDT [facility] Sodium, Plasma 137 136 - 145 mmol/L 11/11/2024 1:12 AM EDT [facility] Potassium, Plasma 3.9 3.6 - 4.9 mmol/L 11/11/2024 1:12 AM EDT [facility] Chloride, Plasma 110(H) 97 - 107 mmol/L 11/11/2024 1:12 AM EDT [facility] CO2, Plasma 20(L) 22 - 29 mmol/L 11/11/2024 1:12 AM EDT [facility] Anion Gap 7 6 - 16 mmol/L 11/11/2024 1:12 AM EDT [facility] Total Calcium, Plasma 7.6(L) 8.9 - 10.2 mg/dL 11/11/2024 1:12 AM EDT [facility] eGFRcr 97.5 mL/min/1.7 3m*2 11/11/2024 1:12 AM EDT [facility] Comment:Reported eGFRcr in m L/min/1.73m2 is based the CKD-EPI 2020 equation that does not use a race coefficient. Blood Venous blood specimen / Unknown 11/11/2024 12:42 AM EDT us Nathaly Nowak MD LAB BLOOD ORDERABLES Final Resu lt [facility] [address] [place] [address] * (ABNORMAL) CBC W/O Differential (11/11/2024 12:56 AM EDT) WBC Count 11.83(H) 3.70 - 10.30 10*3/uL LAB HEMATOLOGY METHOD 11/11/2024 12:56 AM EDT [facility] RBC Count 2.97(L) 4.60 - 6.10 10*6/uL LAB HEMATOLOGY METHOD 11/11/2024 12:56 AM EDT [facility] HGB 8.9(L) 13.7 - 17.5 g/dL LAB HEMATOLOGY METHOD 11/11/2024 12:56 AM EDT [facility] HCT 27.2(L) 40.0 - 51.0 % LAB HEMATOLOGY METHOD 11/11/2024 12:56 AM EDT [facility] Platelet Count 444(H) 155 - 369 10*3/uL LAB HEMATOLOGY METHOD 11/11/2024 12:56 AM EDT [facility] MCV 92 79 - 98 fL LAB HEMATOLOGY METHOD 11/11/2024 12:56 AM EDT [facility] MCH 30.0 26.0 - 32.0 pg LAB HEMATOLOGY METHOD 11/11/2024 12:56 AM EDT [facility] MCHC 32.7 30.7 - 35.5 g/dL LAB HEMATOLOGY METHOD 11/11/2024 12:56 AM EDT [facility] RDW 13.3 11.5 - 14.5 % LAB HEMATOLOGY METHOD 11/11/2024 12:56 AM EDT [facility] MPV 9.0 8.8 - 12.5 fL LAB HEMATOLOGY METHOD 11/11/2024 12:56 AM EDT [facility] nRBC 0.0 <=0.0 per 100 WBCs LAB HEMATOLOGY METHOD 11/11/2024 12:56 AM EDT [facility] Blood Venous blood specimen / Unknown 11/11/2024 12:42 AM EDT us Nathaly Nowak MD LAB BLOOD ORDERABLES Final Resu lt Performing Organization Address City/[facility]/ZIP Co de Phone Number [facility] [address] [place] [address] * (ABNORMAL) POCT glucose meter (11/10/2024 8:25 [...] Comment 11/10/2024 8:28 PM EDT [facility] Pharmacy Assistant ID Nelda Gerber 11/11/19 8:28 PM EDT [facility] LAB Device ID [id number] 11/10/2024 8:28 PM EDT [facility] Specimen Type POC Capillary 11/10/2024 8:28 PM EDT [facility] Blood Capillary blood specimen / Unknown 11/10/2024 8:25 PM EDT 11/10/2024 8:28 PM EDT us Nathaly Nowak MD LAB POINT OF CARE TE ST DOCKED DEVICE UNSOLICITED RESULTS Final Result Performing Organization Address City/[facility]/ZIP Co de Phone Number [facility] [address] [place] [address] * (ABNORMAL) POCT glucose meter (11/10/2024 4:45 [...] 11/10/2024 4:47 PM EDT [facility] Pharmacy Assistant ID Esperanza Parks 11/10/2024 4:47 PM EDT [facility] Device ID [id number] 11/10/2024 4:47 PM EDT [facility] Specimen Type POC Capillary 11/10/2024 4:47 PM EDT [facility] Blood Capillary blood specimen / Unknown 11/10/2024 4:45 PM EDT 11/10/2024 4:47 PM EDT Nathaly Nowak MD LAB POINT OF CARE TE ST DOCKED DEVICE UNSOLICITED RESULTS Final Result Performing Organization Address City/State/[facility] Co de Phone Number [facility] [address] [place] [address] * (ABNORMAL) POCT glucose meter (11/10/2024 12:13 PM EDT) [facility] POCT Glucose 131(H) 74 - 99 [...] 11/10/2024 12:14 PM EDT [facility] Pharmacy Assistant ID Esperanza Parks 11/10/2024 12:14 PM EDT [facility] Device ID [id number] 11/10/2024 12:14 PM EDT [facility] Specimen Type POC Capillary 11/10/2024 12:14 PM EDT [facility] Blood Capillary blood specimen / Unknown 11/10/2024 12:13 PM EDT 11/10/2024 12:14 PM EDT us Nathaly Nowak MD LAB POINT OF CARE TE ST DOCKED DEVICE UNSOLICITED RESULTS Final Result Performing Organization Address [facility] Co de Phone Number [facility] [address] [place] [address] * Vancomycin, Peak, Plasma Please draw ~2 hours after 0800 dose of vancomycin finishes infusing. Consider obtaining level via peripheral stick. If peripheral stick is not feasible, please ensure that line is flushed well prior to drawing level. Than... (11/10/2024 10:56 AM EDT) [facility] Vancomycin, Peak, Plasma 23.8 20.0 - 40.0 ug/mL 11/10/2024 11:25 AM EDT [facility] Blood Venous blood specimen / Unknown Venipuncture / Unknown 11/10/2024 10:56 AM EDT 11/10/2024 11:00 AM EDT Narrative [facility] - 11/10/2024 11:25 AM EDT Therapeutic Peak level: 20-40ug/mL Supra-therapeutic Peak level: >40 ug/mL us Abigail Seay MD LAB BLOOD ORDERABLES Final Res ult Performing Organization Address [facility] de Phone Number [facility] [address] [place] [address] * (ABNORMAL) POCT glucose meter (11/10/2024 8:03 AM EDT) [facility] POCT Glucose 174(H) 74 - 99 mg/dL 11/10/2024 8:04 AM EDT [facility] Comment:Accuracy of a glucos e result [...] Comment 11/10/2024 8:04 AM EDT [facility] Pharmacy Assistant ID Pierre Parksn 11/10/2024 8:04 AM EDT [facility] Device ID [id number] 11/10/2024 8:04 AM EDT [facility] Specimen Type POC Capillary 11/10/2024 8:04 AM EDT [facility] Blood Capillary blood specimen / Unknown 11/10/2024 8:03 AM EDT 11/10/2024 8:04 AM EDT us Nathaly Nowak MD LAB POINT OF CARE TE ST DOCKED DEVICE UNSOLICITED RESULTS Final Result Performing Organization Address [facility] Co de Phone Number [facility] [address] [place] [address] * Vancomycin, Trough, Plasma Please draw ~30 minutes prior to dose due at 0800 on 11/10. Please do NOThold dose awaiting level to return. Consider obtaining level via peripheral stick. If peripheral stick is not feasible, please ensure that line is... (11/10/2024 7:27 AM EDT) Vancomycin, Trough, Plasma 16.2 10.0 - 20.0 ug/mL 11/10/2024 8:24 AM EDT [facility] Blood Venous blood specimen / Unknown Venipuncture / Unknown 11/10/2024 7:27 AM EDT 11/10/2024 7:51 AM EDT Narrative [facility] - 11/10/2024 8:24 AM EDT Therapeutic Trough level: 10-20ug/mL Supra-therapeutic Trough level: >20 ug/mL us Abigail Seay MD LAB BLOOD ORDERABLES Final Res ult Performing Organization Address [facility]/ZIP Co de Phone Number [facility] [address] [place] [address] * (ABNORMAL) CBC and Differential (11/10/2024 12:31 AM EDT) WBC Count 10.80(H) 3.70 - 10.30 10*3/uL LAB HEMATOLOGY METHOD 11/10/2024 12:53 AM EDT [facility] RBC Count 3.06(L) 4.60 - 6.10 10*6/uL LAB HEMATOLOGY METHOD 11/10/2024 12:53 AM EDT [facility] HGB 9.1(L) 13.7 - 17.5 g/dL LAB HEMATOLOGY METHOD 11/10/2024 12:53 AM EDT [facility] HCT 28.0(L) 40.0 - 51.0 % LAB HEMATOLOGY METHOD 11/10/2024 12:53 AM EDT [facility] Platelet Count 501(H) 155 - 369 10*3/uL LAB HEMATOLOGY METHOD 11/10/2024 12:53 AM EDT [facility] MCV 92 79 - 98 fL LAB HEMATOLOGY METHOD 11/10/2024 12:53 AM EDT [facility] MCH 29.7 26.0 - 32.0 pg LAB HEMATOLOGY METHOD 11/10/2024 12:53 AM EDT [facility] MCHC 32.5 30.7 - 35.5 g/dL LAB HEMATOLOGY METHOD 11/10/2024 12:53 AM EDT [facility] RDW 13.2 11.5 - 14.5 % LAB HEMATOLOGY METHOD 11/10/2024 12:53 AM EDT [facility] MPV 8.8 8.8 - 12.5 fL LAB HEMATOLOGY METHOD 11/10/2024 12:53 AM EDT [facility] nRBC 0.0 <=0.0 per 100 WBCs LAB HEMATOLOGY METHOD 11/10/2024 12:53 AM EDT [facility] Differential Type Automated LAB HEMATOLOGY METHOD 11/10/2024 12:53 AM EDT [facility] Neutrophils % 77 % LAB HEMATOLOGY METHOD 11/10/2024 12:53 AM EDT [facility] Lymphocytes % 13 % LAB HEMATOLOGY METHOD 11/10/2024 12:53 AM EDT [facility] Monocytes % 8 % LAB HEMATOLOGY METHOD 11/10/2024 12:53 AM EDT [facility] Eosinophils % 1 % LAB HEMATOLOGY METHOD 11/10/2024 12:53 AM EDT [facility] Basophils % 0 % LAB HEMATOLOGY METHOD 11/10/2024 12:53 AM EDT [facility] Immature Granulocytes % 1 % LAB HEMATOLOGY METHOD 11/10/2024 12:53 AM EDT [facility] Neutrophils Absolute 8.32(H) 1.60 - 6.10 10*3/uL LAB HEMATOLOGY METHOD 11/10/2024 12:53 AM EDT [facility] Lymphocytes Absolute 1.40 1.20 - 3.90 10*3/uL LAB HEMATOLOGY METHOD 11/10/2024 12:53 AM EDT [facility] Monocytes Absolute 0.89 0.30 - 0.90 10*3/uL LAB HEMATOLOGY METHOD 11/10/2024 12:53 AM EDT [facility] Eosinophils Absolute 0.09 0.00 - 0.50 10*3/uL LAB HEMATOLOGY METHOD 11/10/2024 12:53 AM EDT [facility] Basophils Absolute 0.04 0.00 - 0.10 10*3/uL LAB HEMATOLOGY METHOD 11/10/2024 12:53 AM EDT [facility] Immature Granulocytes Absolute 0.06 0.00 - 0.06 10*3/uL LAB HEMATOLOGY METHOD 11/10/2024 12:53 AM EDT [facility] Blood Venous blood specimen / Unknown Venipuncture / Unknown 11/10/2024 12:31 AM EDT 11/10/2024 12:37 AM EDT Narrative [facility] - 11/10/2024 12:53 AM EDT Therapeutic decision making should be based on absolute values, rather than percentages. us Nathaly Nowak MD LAB BLOOD ORDERABLES Final Resu lt [facility] [address] [place] [address] * (ABNORMAL) Comprehensive Metabolic Panel, Plasma (11/10/2024 12:31 AM EDT) Glucose, Plasma 185(H) 74 - 99 mg/dL 11/10/2024 1:05 AM EDT [facility] BUN, Plasma 9 8 - 23 mg/dL 11/10/2024 1:05 AM EDT [facility] Creatinine, Plasma 0.72 0.70 - 1.20 mg/dL 11/10/2024 1:05 AM EDT [facility] BUN/Creatinine Ratio 13 11/10/2024 1:05 AM EDT [facility] Sodium, Plasma 135(L) 136 - 145 mmol/L 11/10/2024 1:05 AM EDT [facility] Potassium, Plasma 4.0 3.6 - 4.9 mmol/L 11/10/2024 1:05 AM EDT [facility] Chloride, Plasma 106 97 - 107 mmol/L 11/10/2024 1:05 AM EDT [facility] CO2, Plasma 19(L) 22 - 29 mmol/L 11/10/2024 1:05 AM EDT [facility] Anion Gap 10 6 - 16 mmol/L 11/10/2024 1:05 AM EDT [facility] Total Calcium, Plasma 7.8(L) 8.9 - 10.2 mg/dL 11/10/2024 1:05 AM EDT [facility] Total Protein 5.6(L) 6.3 - 7.9 g/dL 11/10/2024 1:05 AM EDT [facility] Albumin, Plasma 3.1(L) 3.5 - 5.2 g/dL 11/10/2024 1:05 AM EDT [facility] AST, Plasma 33 10 - 50 U/L 11/10/2024 1:05 AM EDT [facility] ALT, Plasma 25 10 - 50 U/L 11/10/2024 1:05 AM EDT [facility] Alkaline Phosphatase, Plasma 108 40 - 115 U/L 11/10/2024 1:05 AM EDT [facility] Total Bilirubin, Plasma <0.2(L) 0.2 - 1.1 mg/dL 11/10/2024 1:05 AM EDT [facility] eGFRcr 101.4 mL/min/1.7 3m*2 11/10/2024 1:05 AM EDT [facility] Comment:Reported eGFRcr in m L/min/1.73m2 is based the CKD-EPI 2020 equation that does not use a race coefficient. Blood Venous blood specimen / Unknown Venipuncture / Unknown 11/10/2024 12:31 AM EDT 11/10/2024 12:37 AM EDT us Nathaly Nowak MD LAB BLOOD ORDERABLES Final Resu lt [facility] [address] [place] [address] * (ABNORMAL) POCT glucose meter (11/09/2024 8:04 PM EDT) [facility] POCT Glucose 114(H) 74 - 99 [...] Comment 11/09/2024 8:06 PM EDT [facility] Pharmacy Assistant ID Maximiliano Hansen II 11/09/2024 8:06 PM EDT [facility] Device ID [id number] 11/09/2024 8:06 PM EDT [facility] Specimen Type POC Capillary 11/09/2024 8:06 PM EDT [facility] Blood Capillary blood specimen / Unknown 11/09/2024 8:04 PM EDT 11/09/2024 8:06 PM EDT Nathaly Nowak MD LAB POINT OF CARE TE ST DOCKED DEVICE UNSOLICITED RESULTS Final Result Performing Organization Address [facility] Co de Phone Number [facility] [address] [place] [address] * (ABNORMAL) POCT glucose meter (11/09/2024 4:36 PM EDT) [facility] POCT Glucose 166(H) 74 - [...] 11/09/2024 4:38 PM EDT [facility] Pharmacy Assistant ID IanKristian 11/09/2024 4:38 PM EDT [facility] Device ID [id number] 11/09/2024 4:38 PM EDT [facility] Specimen Type POC Capillary 11/09/2024 4:38 PM EDT [facility] Blood Capillary blood specimen / Unknown 11/09/2024 4:36 PM EDT 11/09/2024 4:38 PM EDT Nathaly Nowak MD LAB POINT OF CARE TE ST DOCKED DEVICE UNSOLICITED RESULTS Final Result [facility] [address] [place] [address] * PICC SINGLE LUMEN (SM[employer] LINK) (11/09/2024 1:11 PM EDT) Narrative Estefani Barraza RN - 11/09/2024 1:11 PM EDT Estefani Barraza RN 11/09/2024 1:12 PM Insert PICC line Date/Time: 11/09/2024 1:11 PM Performed by: Estefani Barraza RN Authorized by: Nathaly Nowak MD Dwight Protocol: Verbal consent obtained?: Yes Written consent [...] selection rationale: Left pacemaker Catheter Lot #: [id number] Catheter gate supervisor: Konoz Catheter placed: Single lumen Catheter size: 4 [...] Comment 11/09/2024 11:51 AM EDT [facility] Pharmacy Assistant ID Kristian Sosa 11/09/2024 11:51 AM EDT [facility] Device ID [id number] 11/09/2024 11:51 AM EDT [facility] Specimen Type POC Capillary 11/09/2024 11:51 AM EDT [facility] Blood Capillary blood specimen / Unknown 11/09/2024 11:50 AM EDT 11/09/2024 11:51 AM EDT Nathaly Nowak MD LAB POINT OF CARE TE ST DOCKED DEVICE UNSOLICITED RESULTS Final Result [facility] [address] [place] [id number] * (ABNORMAL) POCT glucose meter (11/09/2024 8:14 [...] Comment 11/09/2024 8:15 AM EDT [facility] Pharmacy Assistant ID Kristian Sosa 11/09/2024 8:15 AM EDT [facility] Device ID [id number] 11/09/2024 8:15 AM EDT [facility] Specimen Type POC Capillary 11/09/2024 8:15 AM EDT [facility] Blood Capillary blood specimen / Unknown 11/09/2024 8:14 AM EDT 11/09/2024 8:15 AM EDT us Nathaly Nowak MD LAB POINT OF CARE TE ST DOCKED DEVICE UNSOLICITED RESULTS Final Result Performing Organization Address City/State/[facility] Co de Phone Number [facility] [address] [place] [address] * (ABNORMAL) CBC and Differential (11/09/2024 4:15 AM EDT) WBC Count 10.27 3.70 - 10.30 10*3/uL LAB HEMATOLOGY METHOD 11/09/2024 4:26 AM EDT [facility] RBC Count 3.14(L) 4.60 - 6.10 10*6/uL LAB HEMATOLOGY METHOD 11/09/2024 4:26 AM EDT [facility] HGB 9.2(L) 13.7 - 17.5 g/dL LAB HEMATOLOGY METHOD 11/09/2024 4:26 AM EDT [facility] HCT 28.3(L) 40.0 - 51.0 % LAB HEMATOLOGY METHOD 11/09/2024 4:26 AM EDT [facility] Platelet Count 468(H) 155 - 369 10*3/uL LAB HEMATOLOGY METHOD 11/09/2024 4:26 AM EDT [facility] MCV 90 79 - 98 fL LAB HEMATOLOGY METHOD 11/09/2024 4:26 AM EDT [facility] MCH 29.3 26.0 - 32.0 pg LAB HEMATOLOGY METHOD 11/09/2024 4:26 AM EDT [facility] MCHC 32.5 30.7 - 35.5 g/dL LAB HEMATOLOGY METHOD 11/09/2024 4:26 AM EDT [facility] RDW 13.1 11.5 - 14.5 % LAB HEMATOLOGY METHOD 11/09/2024 4:26 AM EDT [facility] MPV 8.7(L) 8.8 - 12.5 fL LAB HEMATOLOGY METHOD 11/09/2024 4:26 AM EDT [facility] nRBC 0.0 <=0.0 per 100 WBCs LAB HEMATOLOGY METHOD 11/09/2024 4:26 AM EDT [facility] Differential Type Automated LAB HEMATOLOGY METHOD 11/09/2024 4:26 AM EDT [facility] Neutrophils % 77 % LAB HEMATOLOGY METHOD 11/09/2024 4:26 AM EDT [facility] Lymphocytes % 13 % LAB HEMATOLOGY METHOD 11/09/2024 4:26 AM EDT [facility] Monocytes % 8 % LAB HEMATOLOGY METHOD 11/09/2024 4:26 AM EDT [facility] Eosinophils % 1 % LAB HEMATOLOGY METHOD 11/09/2024 4:26 AM EDT [facility] Basophils % 0 % LAB HEMATOLOGY METHOD 11/09/2024 4:26 AM EDT [facility] Immature Granulocytes % 1 % LAB HEMATOLOGY METHOD 11/09/2024 4:26 AM EDT [facility] Neutrophils Absolute 7.97(H) 1.60 - 6.10 10*3/uL LAB HEMATOLOGY METHOD 11/09/2024 4:26 AM EDT [facility] Lymphocytes Absolute 1.32 1.20 - 3.90 10*3/uL LAB HEMATOLOGY METHOD 11/09/2024 4:26 AM EDT [facility] Monocytes Absolute 0.83 0.30 - 0.90 10*3/uL LAB HEMATOLOGY METHOD 11/09/2024 4:26 AM EDT [facility] Eosinophils Absolute 0.07 0.00 - 0.50 10*3/uL LAB HEMATOLOGY METHOD 11/09/2024 4:26 AM EDT [facility] Basophils Absolute 0.03 0.00 - 0.10 10*3/uL LAB HEMATOLOGY METHOD 11/09/2024 4:26 AM EDT [facility] Immature Granulocytes Absolute 0.05 0.00 - 0.06 10*3/uL LAB HEMATOLOGY METHOD 11/09/2024 4:26 AM EDT [facility] Blood Venous blood specimen / Unknown Venipuncture / Unknown 11/09/2024 4:15 AM EDT 11/09/2024 4:18 AM EDT Narrative [facility] - 11/09/2024 4:26 AM EDT Therapeutic decision making should be based on absolute values, rather than percentages. us Nathaly Nowak MD LAB BLOOD ORDERABLES Final Resu lt [facility] [address] [place] [address] * (ABNORMAL) Comprehensive Metabolic Panel, Plasma (11/09/2024 4:15 AM EDT) Glucose, Plasma 171(H) 74 - 99 mg/dL 11/09/2024 4:47 AM EDT [facility] BUN, Plasma 9 8 - 23 mg/dL 11/09/2024 4:47 AM EDT [facility] Creatinine, Plasma 0.67(L) 0.70 - 1.20 mg/dL 11/09/2024 4:47 AM EDT [facility] BUN/Creatinine Ratio 13 11/09/2024 4:47 AM EDT [facility] Sodium, Plasma 134(L) 136 - 145 mmol/L 11/09/2024 4:47 AM EDT [facility] Potassium, Plasma 4.1 3.6 - 4.9 mmol/L 11/09/2024 4:47 AM EDT [facility] Chloride, Plasma 104 97 - 107 mmol/L 11/09/2024 4:47 AM EDT [facility] CO2, Plasma 21(L) 22 - 29 mmol/L 11/09/2024 4:47 AM EDT [facility] Anion Gap 9 6 - 16 mmol/L 11/09/2024 4:47 AM EDT [facility] Total Calcium, Plasma 8.4(L) 8.9 - 10.2 mg/dL 11/09/2024 4:47 AM EDT [facility] Total Protein 5.8(L) 6.3 - 7.9 g/dL 11/09/2024 4:47 AM EDT [facility] Albumin, Plasma 3.2(L) 3.5 - 5.2 g/dL 11/09/2024 4:47 AM EDT [facility] AST, Plasma 18 10 - 50 U/L 11/09/2024 4:47 AM EDT [facility] ALT, Plasma 17 10 - 50 U/L 11/09/2024 4:47 AM EDT [facility] Alkaline Phosphatase, Plasma 110 40 - 115 U/L 11/09/2024 4:47 AM EDT [facility] Total Bilirubin, Plasma <0.2(L) 0.2 - 1.1 mg/dL 11/09/2024 4:47 AM EDT [facility] eGFRcr 103.6 mL/min/1.7 3m*2 11/09/2024 4:47 AM EDT [facility] Comment:Reported eGFRcr in m L/min/1.73m2 is based the CKD-EPI 2020 equation that does not use a race coefficient. Blood Venous blood specimen / Unknown Venipuncture / Unknown 11/09/2024 4:15 AM EDT 11/09/2024 4:18 AM EDT us Nathaly Nowak MD LAB BLOOD ORDERABLES Final Resu lt [facility] [address] [place] [address] * (ABNORMAL) POCT glucose meter (11/09/2024 3:30 AM EDT) POCT Glucose 160(H) 74 - 99 mg/dL 11/09/2024 3:31 AM EDT [facility] Comment:Accuracy of a glucos [...] Comment 11/09/2024 3:31 AM EDT [facility] Pharmacy Assistant ID Maximiliano Hansen II 11/09/2024 3:31 AM EDT [facility] Device ID [id number] 11/09/2024 3:31 AM EDT [facility] Specimen Type POC Capillary 11/09/2024 3:31 AM EDT [facility] Blood Capillary blood specimen / Unknown 11/09/2024 3:30 AM EDT 11/09/2024 3:31 AM EDT Nathaly Nowak MD LAB POINT OF CARE TE ST DOCKED DEVICE UNSOLICITED RESULTS Final Result Performing Organization Address City/[facility]/ZIP Co de Phone Number [facility] [address] [place] [address] * (ABNORMAL) POCT glucose meter (11/08/2024 7:21 [...] Comment 11/08/2024 7:22 PM EDT [facility] Pharmacy Assistant ID Maximiliano Hansen II 11/08/2024 7:22 PM EDT [facility] Device ID [id number] 11/08/2024 7:22 PM EDT [facility] Specimen Type POC Capillary 11/08/2024 7:22 PM EDT [facility] Blood Capillary blood specimen / Unknown 11/08/2024 7:21 PM EDT 11/08/2024 7:22 PM EDT Nathaly Nowak MD LAB POINT OF CARE TE ST DOCKED DEVICE UNSOLICITED RESULTS Final Result Performing Organization Address City/[facility]/ZIP Co de Phone Number [facility] [address] [place] [address] * (ABNORMAL) POCT glucose meter (11/08/2024 5:12 PM EDT) [facility] POCT Glucose 178(H) 74 - [...] Comment 11/08/2024 5:14 PM EDT [facility] Pharmacy Assistant ID Estefani Sheth 11/08/2024 5:14 PM EDT [facility] Device ID [id number] 11/08/2024 5:14 PM EDT [facility] Specimen Type POC Capillary 11/08/2024 5:14 PM EDT [facility] Blood Capillary blood specimen / Unknown 11/08/2024 5:12 PM EDT 11/08/2024 5:14 PM EDT Nathaly Nowak MD LAB POINT OF CARE TE ST DOCKED DEVICE UNSOLICITED RESULTS Final Result Performing Organization Address City/State/[facility] Co de Phone Number [facility] [address] [place] [address] * (ABNORMAL) POCT glucose meter (11/08/2024 12:03 PM EDT) [facility] POCT Glucose 191(H) 74 - 99 [...] 11/08/2024 12:05 PM EDT [facility] Pharmacy Assistant ID Estefani Sheth 11/08/2024 12:05 PM EDT [facility] Device ID [id number] 11/08/2024 12:05 PM EDT [facility] Specimen Type POC Capillary 11/08/2024 12:05 PM EDT [facility] Blood Capillary blood specimen / Unknown 11/08/2024 12:03 PM EDT 11/08/2024 12:05 PM EDT Result [facility] Nathaly Nowak MD LAB POINT OF CARE TE ST DOCKED DEVICE UNSOLICITED RESULTS Final Result Performing Organization Address [facility] de Phone Number [facility] [address] [place] [address] * Vancomycin, Peak, Plasma Please draw ~2 hours after 11/08 0600 dose of vancomycin finishes infusing.Consider obtaining level via peripheral stick. If peripheral stick is not feasible, please ensure that line is flushed well prior to drawing level.... (11/08/2024 9:24 AM EDT) [facility] Vancomycin, Peak, Plasma 29.1 20.0 - 40.0 ug/mL 11/08/2024 10:31 AM EDT [facility] Blood Venous blood specimen / Unknown Venipuncture / Unknown 11/08/2024 9:24 AM EDT 11/08/2024 9:47 AM EDT Narrative [facility] - 11/08/2024 10:31 AM EDT Therapeutic Peak level: 20-40ug/mL Supra-therapeutic Peak level: >40 ug/mL Nathaly Nowak MD LAB BLOOD ORDERABLES Final Resu lt Performing Organization Address [facility] de Phone Number [facility] [address] [place] [address] * (ABNORMAL) POCT glucose meter (11/08/2024 8:00 AM EDT) [facility] POCT Glucose 150(H) 74 - 99 mg/dL 11/08/2024 8:01 AM EDT [facility] Comment:Accuracy of a glucos [...] Comment 11/08/2024 8:01 AM EDT [facility] Pharmacy Assistant ID Estefani Sheth 11/08/2024 8:01 AM EDT [facility] Device ID [id number] 11/08/2024 8:01 AM EDT [facility] Specimen Type POC Capillary 11/08/2024 8:01 AM EDT [facility] Blood Capillary blood specimen / Unknown 11/08/2024 8:00 AM EDT 11/08/2024 8:01 AM EDT us Nathaly Nowak MD LAB POINT OF CARE TE ST DOCKED DEVICE UNSOLICITED RESULTS Final Result [facility] [address] [place] [address] * (ABNORMAL) CBC and Differential (11/08/2024 4:39 AM EDT) WBC Count 9.18 3.70 - 10.30 10*3/uL LAB HEMATOLOGY METHOD 11/08/2024 4:58 AM EDT [facility] RBC Count 3.11(L) 4.60 - 6.10 10*6/uL LAB HEMATOLOGY METHOD 11/08/2024 4:58 AM EDT [facility] HGB 9.2(L) 13.7 - 17.5 g/dL LAB HEMATOLOGY METHOD 11/08/2024 4:58 AM EDT [facility] HCT 28.9(L) 40.0 - 51.0 % LAB HEMATOLOGY METHOD 11/08/2024 4:58 AM EDT [facility] Platelet Count 485(H) 155 - 369 10*3/uL LAB HEMATOLOGY METHOD 11/08/2024 4:58 AM EDT [facility] MCV 93 79 - 98 fL LAB HEMATOLOGY METHOD 11/08/2024 4:58 AM EDT [facility] MCH 29.6 26.0 - 32.0 pg LAB HEMATOLOGY METHOD 11/08/2024 4:58 AM EDT [facility] MCHC 31.8 30.7 - 35.5 g/dL LAB HEMATOLOGY METHOD 11/08/2024 4:58 AM EDT [facility] RDW 13.0 11.5 - 14.5 % LAB HEMATOLOGY METHOD 11/08/2024 4:58 AM EDT [facility] MPV 8.8 8.8 - 12.5 fL LAB HEMATOLOGY METHOD 11/08/2024 4:58 AM EDT [facility] nRBC 0.0 <=0.0 per 100 WBCs LAB HEMATOLOGY METHOD 11/08/2024 4:58 AM EDT [facility] Differential Type Automated LAB HEMATOLOGY METHOD 11/08/2024 4:58 AM EDT [facility] Neutrophils % 69 % LAB HEMATOLOGY METHOD 11/08/2024 4:58 AM EDT [facility] Lymphocytes % 17 % LAB HEMATOLOGY METHOD 11/08/2024 4:58 AM EDT [facility] Monocytes % 10 % LAB HEMATOLOGY METHOD 11/08/2024 4:58 AM EDT [facility] Eosinophils % 2 % LAB HEMATOLOGY METHOD 11/08/2024 4:58 AM EDT [facility] Basophils % 1 % LAB HEMATOLOGY METHOD 11/08/2024 4:58 AM EDT [facility] Immature Granulocytes % 1 % LAB HEMATOLOGY METHOD 11/08/2024 4:58 AM EDT [facility] Neutrophils Absolute 6.40(H) 1.60 - 6.10 10*3/uL LAB HEMATOLOGY METHOD 11/08/2024 4:58 AM EDT [facility] Lymphocytes Absolute 1.59 1.20 - 3.90 10*3/uL LAB HEMATOLOGY METHOD 11/08/2024 4:58 AM EDT [facility] Monocytes Absolute 0.87 0.30 - 0.90 10*3/uL LAB HEMATOLOGY METHOD 11/08/2024 4:58 AM EDT [facility] Eosinophils Absolute 0.22 0.00 - 0.50 10*3/uL LAB HEMATOLOGY METHOD 11/08/2024 4:58 AM EDT [facility] Basophils Absolute 0.05 0.00 - 0.10 10*3/uL LAB HEMATOLOGY METHOD 11/08/2024 4:58 AM EDT [facility] Immature Granulocytes Absolute 0.05 0.00 - 0.06 10*3/uL LAB HEMATOLOGY METHOD 11/08/2024 4:58 AM EDT [facility] Blood Venous blood specimen / Unknown Venipuncture / Unknown 11/08/2024 4:39 AM EDT 11/08/2024 4:49 AM EDT Narrative [facility] - 11/08/2024 4:58 AM EDT Therapeutic decision making should be based on absolute values, rather than percentages. us Nathaly Nowak MD LAB BLOOD ORDERABLES Final Resu lt [facility] [address] [place] [address] * (ABNORMAL) Comprehensive Metabolic Panel, Plasma (11/08/2024 4:39 AM EDT) Glucose, Plasma 255(H) 74 - 99 mg/dL 11/08/2024 5:20 AM EDT [facility] BUN, Plasma 10 8 - 23 mg/dL 11/08/2024 5:20 AM EDT [facility] Creatinine, Plasma 0.75 0.70 - 1.20 mg/dL 11/08/2024 5:20 AM EDT [facility] BUN/Creatinine Ratio 13 11/08/2024 5:20 AM EDT [facility] Sodium, Plasma 133(L) 136 - 145 mmol/L 11/08/2024 5:20 AM EDT [facility] Potassium, Plasma 5.2(H) 3.6 - 4.9 mmol/L 11/08/2024 5:20 AM EDT [facility] Chloride, Plasma 105 97 - 107 mmol/L 11/08/2024 5:20 AM EDT [facility] CO2, Plasma 20(L) 22 - 29 mmol/L 11/08/2024 5:20 AM EDT [facility] Anion Gap 8 6 - 16 mmol/L 11/08/2024 5:20 AM EDT [facility] Total Calcium, Plasma 7.7(L) 8.9 - 10.2 mg/dL 11/08/2024 5:20 AM EDT [facility] Total Protein 5.6(L) 6.3 - 7.9 g/dL 11/08/2024 5:20 AM EDT [facility] Albumin, Plasma 2.8(L) 3.5 - 5.2 g/dL 11/08/2024 5:20 AM EDT [facility] AST, Plasma 20 10 - 50 U/L 11/08/2024 5:20 AM EDT [facility] Comment:Hemolyzed, result ma y be falsely increased. ALT, Plasma 14 10 - 50 U/L 11/08/2024 5:20 AM EDT [facility] Alkaline Phosphatase, Plasma 119(H) 40 - 115 U/L 11/08/2024 5:20 AM EDT [facility] Total Bilirubin, Plasma <0.2(L) 0.2 - 1.1 mg/dL 11/08/2024 5:20 AM EDT [facility] eGFRcr 100.1 mL/min/1.7 3m*2 11/08/2024 5:20 AM EDT [facility] Comment:Reported eGFRcr in m L/min/1.73m2 is based the CKD-EPI 2020 equation that does not use a race coefficient. Blood Venous blood specimen / Unknown Venipuncture / Unknown 11/08/2024 4:39 AM EDT 11/08/2024 4:43 AM EDT us Nathaly Nowak MD LAB BLOOD ORDERABLES Final Resu lt [facility] [address] [place] [address] * Vancomycin, Trough, Plasma Please draw ~30 minutes prior to dose due at 0600 on 11/08. Please do NOThold dose awaiting level to return. Consider obtaining level via peripheral stick. If peripheral stick is not feasible, please ensure that line is... (11/08/2024 4:39 AM EDT) Vancomycin, Trough, Plasma 18.7 10.0 - 20.0 ug/mL 11/08/2024 5:22 AM EDT [facility] Blood Venous blood specimen / Unknown Venipuncture / Unknown 11/08/2024 4:39 AM EDT 11/08/2024 4:43 AM EDT Narrative [facility] - 11/08/2024 5:22 AM EDT Therapeutic Trough level: 10-20ug/mL Supra-therapeutic Trough level: >20 ug/mL us Nathaly Nowak MD LAB BLOOD ORDERABLES Final Resu lt Performing Organization Address City/[facility]/ZIP Co de Phone Number [facility] [address] [place] [address] * (ABNORMAL) POCT glucose meter (11/07/2024 7:26 PM EDT) Pathologist [facility] POCT Glucose 172(H) 74 - 99 mg/dL [...] Comment 11/07/2024 7:28 PM EDT [facility] Pharmacy Assistant ID Maximiliano Hansen II 11/07/2024 7:28 PM EDT [facility] LAB Device ID [id number] 11/07/2024 7:28 PM EDT [facility] Specimen Type POC Capillary 11/07/2024 7:28 PM EDT [facility] Blood Capillary blood specimen / Unknown 11/07/2024 7:26 PM EDT 11/07/2024 7:28 PM EDT us Nathaly Nowak MD LAB POINT OF CARE TE ST DOCKED DEVICE UNSOLICITED RESULTS Final Result Performing Organization Address City/[facility]/ZIP Co de Phone Number [facility] [address] [place] [address] * (ABNORMAL) POCT glucose meter (11/07/2024 5:51 PM EDT) Pathologist [facility] [place] POCT Glucose 183(H) 74 - 99 mg/dL [...] 11/07/2024 5:52 PM EDT [facility] Pharmacy Assistant ID Brigitte Castellon 11/07/2024 5:52 PM EDT [facility] Device ID [id number] 11/07/2024 5:52 PM EDT [facility] Specimen Type POC Capillary 11/07/2024 5:52 PM EDT [facility] Blood Capillary blood specimen / Unknown 11/07/2024 5:51 PM EDT 11/07/2024 5:52 PM EDT us Nathaly Nowak MD LAB POINT OF CARE TE ST DOCKED DEVICE UNSOLICITED RESULTS Final Result Performing Organization Address City/[facility] Co de Phone Number [facility]ARE [facility] [address] [place] [address] * (ABNORMAL) POCT glucose meter (11/07/2024 4:47 [...] 11/07/2024 4:48 PM EDT [facility] Pharmacy Assistant ID Estefani Sheth 11/07/2024 4:48 PM EDT [facility] Device ID [id number] 11/07/2024 4:48 PM EDT [facility] Specimen Type POC Capillary 11/07/2024 4:48 PM EDT [facility] Blood Capillary blood specimen / Unknown 11/07/2024 4:47 PM EDT 11/07/2024 4:48 PM EDT us Nathaly Nowak MD LAB POINT OF CARE TE ST DOCKED DEVICE UNSOLICITED RESULTS Final Result Performing Organization Address City/[facility] Co de Phone Number [facility] [address] [place] [address] * (ABNORMAL) POCT glucose meter (11/07/2024 12:22 PM EDT) [facility] POCT Glucose 172(H) 74 - [...] Comment 11/07/2024 12:24 PM EDT [facility] Pharmacy Assistant ID Estefani Sheth 11/07/2024 12:24 PM EDT [facility] Device ID [id number] 11/07/2024 12:24 PM EDT [facility] Specimen Type POC Capillary 11/07/2024 12:24 PM EDT [facility] Blood Capillary blood specimen / Unknown 11/07/2024 12:22 PM EDT 11/07/2024 12:24 PM EDT us Nathaly Nowak MD LAB POINT OF CARE TE ST DOCKED DEVICE UNSOLICITED RESULTS Final Result [facility] [address] [place] [address] * (ABNORMAL) CBC and Differential (11/07/2024 11:37 AM EDT) [facility] WBC Count 9.96 3.70 - 10.30 10*3/uL LAB HEMATOLOGY METHOD 11/07/2024 12:33 PM EDT [facility] RBC Count 2.81(L) 4.60 - 6.10 10*6/uL LAB HEMATOLOGY METHOD 11/07/2024 12:33 PM EDT [facility] HGB 8.5(L) 13.7 - 17.5 g/dL LAB HEMATOLOGY METHOD 11/07/2024 12:33 PM EDT [facility] HCT 26.0(L) 40.0 - 51.0 % LAB HEMATOLOGY METHOD 11/07/2024 12:33 PM EDT [facility] Platelet Count 524(H) 155 - 369 10*3/uL LAB HEMATOLOGY METHOD 11/07/2024 12:33 PM EDT [facility] MCV 93 79 - 98 fL LAB HEMATOLOGY METHOD 11/07/2024 12:33 PM EDT [facility] MCH 30.2 26.0 - 32.0 pg LAB HEMATOLOGY METHOD 11/07/2024 12:33 PM EDT [facility] MCHC 32.7 30.7 - 35.5 g/dL LAB HEMATOLOGY METHOD 11/07/2024 12:33 PM EDT [facility] RDW 13.1 11.5 - 14.5 % LAB HEMATOLOGY METHOD 11/07/2024 12:33 PM EDT [facility] MPV 9.0 8.8 - 12.5 fL LAB HEMATOLOGY METHOD 11/07/2024 12:33 PM EDT [facility] nRBC 0.0 <=0.0 per 100 WBCs LAB HEMATOLOGY METHOD 11/07/2024 12:33 PM EDT [facility] Differential Type Automated LAB HEMATOLOGY METHOD 11/07/2024 12:33 PM EDT [facility] Neutrophils % 72 % LAB HEMATOLOGY METHOD 11/07/2024 12:33 PM EDT [facility] Lymphocytes % 17 % LAB HEMATOLOGY METHOD 11/07/2024 12:33 PM EDT [facility] Monocytes % 9 % LAB HEMATOLOGY METHOD 11/07/2024 12:33 PM EDT [facility] Eosinophils % 1 % LAB HEMATOLOGY METHOD 11/07/2024 12:33 PM EDT [facility] Basophils % 1 % LAB HEMATOLOGY METHOD 11/07/2024 12:33 PM EDT [facility] Immature Granulocytes % 0 % LAB HEMATOLOGY METHOD 11/07/2024 12:33 PM EDT [facility] Neutrophils Absolute 7.19(H) 1.60 - 6.10 10*3/uL LAB HEMATOLOGY METHOD 11/07/2024 12:33 PM EDT [facility] Lymphocytes Absolute 1.66 1.20 - 3.90 10*3/uL LAB HEMATOLOGY METHOD 11/07/2024 12:33 PM EDT [facility] Monocytes Absolute 0.88 0.30 - 0.90 10*3/uL LAB HEMATOLOGY METHOD 11/07/2024 12:33 PM EDT [facility] Eosinophils Absolute 0.14 0.00 - 0.50 10*3/uL LAB HEMATOLOGY METHOD 11/07/2024 12:33 PM EDT [facility] Basophils Absolute 0.05 0.00 - 0.10 10*3/uL LAB HEMATOLOGY METHOD 11/07/2024 12:33 PM EDT [facility] Immature Granulocytes Absolute 0.04 0.00 - 0.06 10*3/uL LAB HEMATOLOGY METHOD 11/07/2024 12:33 PM EDT [facility] Blood Venous blood specimen / Unknown Venipuncture / Unknown 11/07/2024 11:37 AM EDT 11/07/2024 12:24 PM EDT Narrative [facility] - 11/07/2024 12:33 PM EDT Therapeutic decision making should be based on absolute values, rather than percentages. us Nathaly Nowak MD LAB BLOOD ORDERABLES Final Resu lt [facility] [address] [place] [address] * (ABNORMAL) Comprehensive Metabolic Panel, Plasma (11/07/2024 11:37 AM EDT) Glucose, Plasma 173(H) 74 - 99 mg/dL 11/07/2024 1:31 PM EDT [facility] BUN, Plasma 13 8 - 23 mg/dL 11/07/2024 1:31 PM EDT [facility] Creatinine, Plasma 0.92 0.70 - 1.20 mg/dL 11/07/2024 1:31 PM EDT [facility] BUN/Creatinine Ratio 11/07/2024 1:31 PM EDT [facility] Sodium, Plasma 136 136 - 145 mmol/L 11/07/2024 1:31 PM EDT [facility] Potassium, Plasma 4.0 3.6 - 4.9 mmol/L 11/07/2024 1:31 PM EDT [facility] Chloride, Plasma 104 97 - 107 mmol/L 11/07/2024 1:31 PM EDT [facility] CO2, Plasma 23 22 - 29 mmol/L 11/07/2024 1:31 PM EDT [facility] Anion Gap 9 6 - 16 mmol/L 11/07/2024 1:31 PM EDT [facility] Total Calcium, Plasma 7.8(L) 8.9 - 10.2 mg/dL 11/07/2024 1:31 PM EDT [facility] Total Protein 5.7(L) 6.3 - 7.9 g/dL 11/07/2024 1:31 PM EDT [facility] Albumin, Plasma 3.0(L) 3.5 - 5.2 g/dL 11/07/2024 1:31 PM EDT [facility] AST, Plasma 15 10 - 50 U/L 11/07/2024 1:31 PM EDT [facility] ALT, Plasma 16 10 - 50 U/L 11/07/2024 1:31 PM EDT [facility] Alkaline Phosphatase, Plasma 119(H) 40 - 115 U/L 11/07/2024 1:31 PM EDT [facility] Total Bilirubin, Plasma <0.2(L) 0.2 - 1.1 mg/dL 11/07/2024 1:31 PM EDT [facility] eGFRcr 92.3 mL/min/1.7 3m*2 11/07/2024 1:31 PM EDT [facility] Comment:Reported eGFRcr in m L/min/1.73m2 is based the CKD-EPI 2020 equation that does not use a race coefficient. Blood Venous blood specimen / Unknown Venipuncture / Unknown 11/07/2024 11:37 AM EDT 11/07/2024 12:23 PM EDT us Nathaly Nowak MD LAB BLOOD ORDERABLES Final Resu lt [facility] [address] [place] [address] * Type and Screen (11/07/2024 11:37 AM [...] ORDERABLES F inal Result Performing Organization Address City/[facility]/ZIP Co de Phone Number BLOOD BANK [address] * (ABNORMAL) POCT glucose meter (11/07/2024 [...] Comment 11/07/2024 10:36 AM EDT [facility] Pharmacy Assistant ID Joy Iraheta 11/07/2024 10:36 AM EDT [facility] Device ID [id number] 11/07/2024 10:36 AM EDT [facility] Specimen Type POC Capillary 11/07/2024 10:36 AM EDT [facility] Blood Capillary blood specimen / Unknown 11/07/2024 10:34 AM EDT 11/07/2024 10:36 AM EDT Nathaly Nowak MD LAB POINT OF CARE TE ST DOCKED DEVICE UNSOLICITED RESULTS Final Result [facility] [address] [place] [address] * (ABNORMAL) POCT glucose meter (11/07/2024 9:34 [...] Comment 11/07/2024 9:36 AM EDT [facility] Pharmacy Assistant ID Brigitte Castellon 11/07/2024 9:36 AM EDT [facility] LAB Device ID [id number] 11/07/2024 9:36 AM EDT [facility] Specimen Type POC Capillary 11/07/2024 9:36 AM EDT [facility] Blood Capillary blood specimen / Unknown 11/07/2024 9:34 AM EDT 11/07/2024 9:36 AM EDT Nathaly Nowak MD LAB POINT OF CARE TE ST DOCKED DEVICE UNSOLICITED RESULTS Final Result Performing Organization Address City/State/[facility] Co de Phone Number [facility]ALTH[facility]ARE LAB [address] [place] [address] * (ABNORMAL) POCT glucose meter (11/07/2024 8:20 [...] Comment 11/07/2024 8:22 AM EDT [facility] Pharmacy Assistant ID Estefani Sheth 11/07/2024 8:22 AM EDT [facility] LAB Device ID [id number] 11/07/2024 8:22 AM EDT [facility] Specimen Type POC Capillary 11/07/2024 8:22 AM EDT [facility] Blood Capillary blood specimen / Unknown 11/07/2024 8:20 AM EDT 11/07/2024 8:22 AM EDT Nathaly Nowak MD LAB POINT OF CARE TE ST DOCKED DEVICE UNSOLICITED RESULTS Final Result Performing Organization Address [facility] de Phone Number [facility]ALTH[facility]ARE LAB [address] [place] [address] * (ABNORMAL) POCT glucose meter (11/07/2024 7:21 AM EDT) Pathologist [facility] [place] POCT Glucose 151(H) 74 - 99 mg/dL [...] for testing. Comment 11/07/2024 7:22 AM EDT [facility] Pharmacy Assistant ID Brigitte Castellon 11/07/2024 7:22 AM EDT [facility] Device ID [id number] 11/07/2024 7:22 AM EDT [facility] Specimen Type POC Capillary 11/07/2024 7:22 AM EDT [facility] Blood Capillary blood specimen / Unknown 11/07/2024 7:21 AM EDT 11/07/2024 7:22 AM EDT Nathaly Nowak MD LAB POINT OF CARE TE ST DOCKED DEVICE UNSOLICITED RESULTS Final Result Performing Organization Address City/[facility] Co de Phone Number [facility]ARE LAB [address] [place] [address] * (ABNORMAL) POCT glucose meter (11/07/2024 6:25 AM EDT) Pathologist [facility] POCT Glucose 144(H) 74 - 99 mg/dL [...] 11/07/2024 6:27 AM EDT [facility] Pharmacy Assistant ID Nelda Gerber 11/08/19 6:27 AM EDT [facility] Device ID [id number] 11/07/2024 6:27 AM EDT [facility] Specimen Type POC Capillary 11/07/2024 6:27 AM EDT [facility] Blood Capillary blood specimen / Unknown 11/07/2024 6:25 AM EDT 11/07/2024 6:27 AM EDT Nathaly Nowak MD LAB POINT OF CARE TE ST DOCKED DEVICE UNSOLICITED RESULTS Final Result Performing Organization Address [facility] de Phone Number [facility]ARE LAB [address] [place] [address] * (ABNORMAL) POCT glucose meter (11/07/2024 5:03 AM EDT) [facility] Signature POCT Glucose 139(H) 74 - [...] Comment 11/07/2024 5:08 AM EDT [facility] Pharmacy Assistant ID Nelda Gerber 11/08/19 5:08 AM EDT [facility] Device ID [id number] 11/07/2024 5:08 AM EDT [facility] Specimen Type POC Capillary 11/07/2024 5:08 AM EDT [facility] Blood Capillary blood specimen / Unknown 11/07/2024 5:03 AM EDT 11/07/2024 5:08 AM EDT Nathaly oNwak MD LAB POINT OF CARE TE ST DOCKED DEVICE UNSOLICITED RESULTS Final Result Performing Organization Address City/[facility] Co de Phone Number [facility]ARE [facility] [address] [place] [address] * (ABNORMAL) POCT glucose meter (11/07/2024 4:16 AM EDT) [facility] POCT Glucose 142(H) 74 - [...] Comment 11/07/2024 4:18 AM EDT [facility] Pharmacy Assistant ID Nelda Gerber 11/08/19 4:18 AM EDT [facility] Device ID [id number] 11/07/2024 4:18 AM EDT [facility] Specimen Type POC Capillary 11/07/2024 4:18 AM EDT [facility] Blood Capillary blood specimen / Unknown 11/07/2024 4:16 AM EDT 11/07/2024 4:18 AM EDT Nathaly Nowak MD LAB POINT OF CARE TE ST DOCKED DEVICE UNSOLICITED RESULTS Final Result [facility] [address] [place] [address] * (ABNORMAL) POCT glucose meter (11/07/2024 3:21 AM EDT) [facility] POCT Glucose 141(H) 74 - 99 [...] 11/07/2024 3:23 AM EDT [facility] Pharmacy Assistant ID Nelda Gerber 11/08/19 3:23 AM EDT [facility] Device ID [id number] 11/07/2024 3:23 AM EDT [facility] Specimen Type POC Capillary 11/07/2024 3:23 AM EDT [facility] Blood Capillary blood specimen / Unknown 11/07/2024 3:21 AM EDT 11/07/2024 3:23 AM EDT Nathaly Nowak MD LAB POINT OF CARE TE ST DOCKED DEVICE UNSOLICITED RESULTS Final Result Performing Organization Address City/[facility] Co de Phone Number [facility] [address] [place] [address] * (ABNORMAL) POCT glucose meter (11/07/2024 2:10 [...] Comment 11/07/2024 2:12 AM EDT [facility] Pharmacy Assistant ID Nelda Gerber 11/08/19 2:12 AM EDT [facility] LAB Device ID [id number] 11/07/2024 2:12 AM EDT [facility] Specimen Type POC Capillary 11/07/2024 2:12 AM EDT [facility] Blood Capillary blood specimen / Unknown 11/07/2024 2:10 AM EDT 11/07/2024 2:12 AM EDT Nathaly Nowak MD LAB POINT OF CARE TE ST DOCKED DEVICE UNSOLICITED RESULTS Final Result Performing Organization Address City/[facility] Co de Phone Number [facility] [address] [place] [address] * (ABNORMAL) POCT glucose meter (11/07/2024 1:08 [...] Comment 11/07/2024 1:10 AM EDT [facility] Pharmacy Assistant ID Nelda Gerber 11/08/19 1:10 AM EDT [facility] LAB Device ID [id number] 11/07/2024 1:10 AM EDT [facility] Specimen Type POC Capillary 11/07/2024 1:10 AM EDT [facility] Blood Capillary blood specimen / Unknown 11/07/2024 1:08 AM EDT 11/07/2024 1:10 AM EDT Nathaly Nowak MD LAB POINT OF CARE TE ST DOCKED DEVICE UNSOLICITED RESULTS Final Result Performing Organization Address City/State/[facility] Co de Phone Number [facility] [address] [place] [address] * (ABNORMAL) POCT glucose meter (11/07/2024 12:10 AM EDT) [facility] POCT Glucose 127(H) 74 - [...] Comment 11/07/2024 12:13 AM EDT [facility] Pharmacy Assistant ID Nelda Gerber 11/08/19 12:13 AM EDT [facility] Device ID [id number] 11/07/2024 12:13 AM EDT [facility] Specimen Type POC Capillary 11/07/2024 12:13 AM EDT [facility] Blood Capillary blood specimen / Unknown 11/07/2024 12:10 AM EDT 11/07/2024 12:13 AM EDT Nathaly Nowak MD LAB POINT OF CARE TE ST DOCKED DEVICE UNSOLICITED RESULTS Final Result Performing Organization Address City/[facility] Co de Phone Number [facility] [address] [place] [address] * (ABNORMAL) POCT glucose meter (11/06/2024 11:14 [...] for testing. Comment 11/06/2024 11:16 PM EDT [facility] Pharmacy Assistant ID Nelda Gerber 11/07/19 11:16 PM EDT [facility] Device ID [id number] 11/06/2024 11:16 PM EDT [facility] Specimen Type POC Capillary 11/06/2024 11:16 PM EDT [facility] Blood Capillary blood specimen / Unknown 11/06/2024 11:14 PM EDT 11/06/2024 11:16 PM EDT Nathaly Nowak MD LAB POINT OF CARE TE ST DOCKED DEVICE UNSOLICITED RESULTS Final Result Performing Organization Address City/[facility] Co de Phone Number [facility] [address] [place] [address] * (ABNORMAL) POCT glucose meter (11/06/2024 10:07 [...] Comment 11/06/2024 10:09 PM EDT [facility] Pharmacy Assistant ID Nelda Gerber 11/07/19 10:09 PM EDT [facility] LAB Device ID [id number] 11/06/2024 10:09 PM EDT [facility] Specimen Type POC Capillary 11/06/2024 10:09 PM EDT [facility] Blood Capillary blood specimen / Unknown 11/06/2024 10:07 PM EDT 11/06/2024 10:09 PM EDT Nathaly Nowak MD LAB POINT OF CARE TE ST DOCKED DEVICE UNSOLICITED RESULTS Final Result Performing Organization Address City/[facility] Co de Phone Number [facility] [address] [place] [address] * (ABNORMAL) POCT glucose meter (11/06/2024 8:22 [...] Comment 11/06/2024 8:25 PM EDT [facility] Pharmacy Assistant ID Nelda Gerber 11/07/19 8:25 PM EDT [facility] LAB Device ID [id number] 11/06/2024 8:25 PM EDT [facility] Specimen Type POC Capillary 11/06/2024 8:25 PM EDT [facility] Blood Capillary blood specimen / Unknown 11/06/2024 8:22 PM EDT 11/06/2024 8:25 PM EDT us Nathaly Nowak MD LAB POINT OF CARE TE ST DOCKED DEVICE UNSOLICITED RESULTS Final Result Performing Organization Address City/[facility]/ZIP Co de Phone Number [facility] [address] [place] [address] * (ABNORMAL) POCT glucose meter (11/06/2024 7:31 PM EDT) Pathologist [facility] POCT Glucose 359(H) 74 - 99 mg/dL [...] Comment 11/06/2024 7:32 PM EDT [facility] Pharmacy Assistant ID Nelda Gerber 11/07/19 7:32 PM EDT [facility] LAB Device ID [id number] 11/06/2024 7:32 PM EDT [facility] Specimen Type POC Capillary 11/06/2024 7:32 PM EDT [facility] Blood Capillary blood specimen / Unknown 11/06/2024 7:31 PM EDT 11/06/2024 7:32 PM EDT us Nathaly Nowak MD LAB POINT OF CARE TE ST DOCKED DEVICE UNSOLICITED RESULTS Final Result Performing Organization Address City/State/[facility] Co de Phone Number [facility] [address] [place] [address] * (ABNORMAL) POCT glucose meter (11/06/2024 6:15 PM EDT) [facility] POCT Glucose 368(H) 74 - 99 [...] 11/06/2024 6:17 PM EDT [facility] Pharmacy Assistant ID Estefani Sheth 11/06/2024 6:17 PM EDT [facility] Device ID [id number] 11/06/2024 6:17 PM EDT [facility] Specimen Type POC Capillary 11/06/2024 6:17 PM EDT [facility] Blood Capillary blood specimen / Unknown 11/06/2024 6:15 PM EDT 11/06/2024 6:17 PM EDT Nathaly Nowak MD LAB POINT OF CARE TE ST DOCKED DEVICE UNSOLICITED RESULTS Final Result Performing Organization Address City/[facility]/ZIP Co de Phone Number [facility] [address] [place] [address] * (ABNORMAL) POCT glucose meter (11/06/2024 4:57 [...] Comment 11/06/2024 4:58 PM EDT [facility] Pharmacy Assistant ID Estefani Sheth 11/06/2024 4:58 PM EDT [facility] LAB Device ID [id number] 11/06/2024 4:58 PM EDT [facility] Specimen Type POC Capillary 11/06/2024 4:58 PM EDT [facility] Blood Capillary blood specimen / Unknown 11/06/2024 4:57 PM EDT 11/06/2024 4:58 PM EDT us Nathaly Nowak MD LAB POINT OF CARE TE ST DOCKED DEVICE UNSOLICITED RESULTS Final Result Performing Organization Address City/[facility]/ZIP Co de Phone Number [facility] [address] [place] [address] * (ABNORMAL) POCT glucose meter (11/06/2024 2:08 [...] Comment 11/06/2024 2:09 PM EDT [facility] Pharmacy Assistant ID Brigitte Castellon 11/06/2024 2:09 PM EDT [facility] LAB Device ID [id number] 11/06/2024 2:09 PM EDT [facility] Specimen Type POC Capillary 11/06/2024 2:09 PM EDT [facility] Blood Capillary blood specimen / Unknown 11/06/2024 2:08 PM EDT 11/06/2024 2:09 PM EDT us Nathaly Nowak MD LAB POINT OF CARE TE ST DOCKED DEVICE UNSOLICITED RESULTS Final Result Performing Organization Address City/State/[facility] Co de Phone Number [facility] [address] [place] [address] * (ABNORMAL) POCT glucose meter (11/06/2024 12:27 [...] Comment 11/06/2024 12:28 PM EDT [facility] Pharmacy Assistant ID Jacinta Galloway 11/06/2024 12:28 PM EDT [facility]ALTH[facility] LAB Device ID [id number] 11/06/2024 12:28 PM EDT [facility] Specimen Type POC Capillary 11/06/2024 12:28 PM EDT [facility] Blood Capillary blood specimen / Unknown 11/06/2024 12:27 PM EDT 11/06/2024 12:28 PM EDT us Nathaly Nowak MD LAB POINT OF CARE TE ST DOCKED DEVICE UNSOLICITED RESULTS Final Result [facility] [address] [place] [address] * (ABNORMAL) Tissue Culture and Gram Stain (11/06/2024 11:34 AM EDT) Culture Moderate Growth 7:35 AM EDT [facility] Culture 2+ Enterobacter cloacae complex(A) ANGÉLICA 11/15/2024 7:35 AM EDT [facility] Comment: This isolate has been identified using the FDA Approved Met[employer]o-Logicyper CA System The organism value for this result has been updated. These results have been appended to the previously preliminary verified report. Edited result: Previously reported as Gram Negative Jesus on 11/07/2024 at 1434 EDT. Culture 2+ Streptococcus mitis/oralis group(A) ANGÉLICA 11/15/2024 7:35 AM EDT [facility] Comment: This isolate has been identified using the FDA Approved MALDI IKO Systemyper CA System The organism value for this result has been updated. These results have been appended to the previously preliminary verified report. Culture 2+ Pasteurella stomatis(A) ANGÉLICA 11/15/2024 7:35 AM EDT [facility] Comment: This result was determined by MALDI tof mass spectrometry using the [employer] database and is for research use only. The organism value for this result has been updated. These results have been appended to the previously preliminary verified report. Gram Stain Result Few Gram negative rods(A) 11/15/2024 7:35 AM EDT [facility] Gram Stain Result Moderate Polymorphonuclear leukocytes(A) 11/15/2024 7:35 AM EDT [facility] Gram Stain Result Few Gram positive cocci in pairs(A) 11/15/2024 7:35 AM EDT [facility] Tissue Topography unknown / Unknown 11/06/2024 11:34 AM EDT 11/06/2024 12:18 PM EDT Comment:Pre-op diagnosis: Surgical wound infection [T81.49XA] Narrative [facility] - 11/15/2024 7:35 AM [...] GENERAL ORDE LAM Edited Result - Final [facility] [address] [place] [address] * (ABNORMAL) Anaerobic Culture (11/06/2024 11:34 AM EDT) Culture No anaerobes isolated 11/14/2024 1:25 PM EDT [facility] Culture Staphylococcus pseudintermedius( A) 11/14/2024 1:25 PM EDT [facility] Comment: This result was determined by MALDI tof mass spectrometry using the [employer] database and is for research use only. This is an appended report. These results have been appended to a previously final verified report. Tissue Topography unknown / Unknown 11/06/2024 11:34 AM EDT 11/06/2024 12:18 PM EDT Comment:Pre-op diagnosis: Surgical wound infection [T81.49XA] Narrative [facility] - 11/14/2024 1:25 PM [...] Edited Result - Final Performing Organization Address City/[facility] Co de Phone Number [facility] [address] [place] [address] * (ABNORMAL) Routine Culture and Gram Stain (11/06/2024 11:29 AM EDT) Culture Moderate Growth 5:29 PM EDT [facility] Culture Enterobacter cloacae complex(A) 11/08/2024 5:29 PM EDT [facility] Comment: This isolate has been identified using the FDA Approved Meteo-Logicyper CA System For susceptibility results refer to: - [id number] The organism value for this result has been updated. These results have been appended to the previously preliminary verified report. Gram Stain Result No polymorphonuclear leukocytes seen 11/08/2024 5:29 PM EDT [facility] Gram Stain Result No organisms seen 11/08/2024 5:29 PM EDT [facility] Swab Topography unknown / Unknown 11/06/2024 11:29 AM EDT 11/06/2024 12:19 PM EDT Comment:Pre-op diagnosis: Surgical wound infection [T81.49XA] Nathaly Nowak MD LAB MICROBIOLOGY - GENERAL ATIYA FRITZ Final Result Performing Organization Address [facility] Co de Phone Number [facility] [address] [place] [address] * Fungal Culture, Routine (11/06/2024 11:29 AM EDT) Culture No Fungal Growth at 1 Week 11/13/2024 8:29 AM EDT [facility] Swab Topography unknown / Unknown 11/06/2024 11:29 AM EDT 11/06/2024 12:19 PM EDT Comment:Pre-op diagnosis: Surgical wound infection [T81.49XA] Nathaly Nowak MD LAB MICROBIOLOGY - [facility] Final Result [facility] [address] [place] [address] * (ABNORMAL) Anaerobic Culture (11/06/2024 11:29 AM EDT) Culture No anaerobes isolated 11/14/2024 1:25 PM EDT [facility] Culture Streptococcus mitis/oralis group(A) 11/14/2024 1:25 PM EDT [facility] Comment: This result was determined by MALDI tof mass spectrometry using the [employer] database and is for research use only. The organism value for this result has been updated. These results have been appended to the previously preliminary verified report. This is a corrected result. Previous organism was Mixed skin clifton on 11/10/2024 at 0718 EDT. Culture Staphylococcus pseudintermedius( A) 11/14/2024 1:25 PM EDT [facility] Comment: This isolate has been identified using the FDA Approved Met[employer]o-Logicyper CA System This is an appended report. These results have been appended to a previously final verified report. Swab Topography unknown / Unknown 11/06/2024 11:29 AM EDT 11/06/2024 12:19 PM EDT Comment:Pre-op diagnosis: Surgical wound infection [T81.49XA] Narrative [facility] - 11/14/2024 1:25 PM [...] Edited Result - Final Performing Organization Address [facility] Co de Phone Number [facility] [address] [place] [address] * Routine Culture and Gram Stain (11/06/2024 11:28 AM EDT) Culture No growth at day 4 2024 11:24 AM EDT [facility] Gram Stain Result No organisms seen 11/10/2024 11:24 AM EDT [facility] Gram Stain Result No polymorphonuclear leukocytes seen 11/10/2024 11:24 AM EDT [facility] Swab Topography unknown / Unknown 11/06/2024 11:28 AM EDT 11/06/2024 12:20 PM EDT Comment:Pre-op diagnosis: Surgical wound infection [T81.49XA] us Nathaly Nowak MD LAB MICROBIOLOGY - GENERAL ORDE LAM Final Result Performing Organization Address [facility] Co de Phone Number [facility] [address] [place] [address] * Fungal Culture, Routine (11/06/2024 11:28 AM EDT) Culture No Fungal Growth at 1 Week 11/13/2024 8:29 AM EDT [facility] Swab Topography unknown / Unknown 11/06/2024 11:28 AM EDT 11/06/2024 12:20 PM EDT Comment:Pre-op diagnosis: Surgical wound infection [T81.49XA] Nathaly Nowak MD LAB MICROBIOLOGY - GENERAL ORDE RABONEIDA Final Result Performing Organization Address [facility] Co de Phone Number [facility] [address] [place] [address] * Anaerobic Culture (11/06/2024 11:28 AM EDT) Culture No growth at day 4 11/13/2024 12:53 PM EDT [facility] Swab Topography unknown / Unknown 11/06/2024 11:28 AM EDT 11/06/2024 12:20 PM EDT Comment:Pre-op diagnosis: Surgical wound infection [T81.49XA] Nathaly Nowak MD LAB MICROBIOLOGY - [facility] LAM Final Result Performing Organization Address [facility] [place] [address] * (ABNORMAL) POCT glucose meter (11/06/2024 10:16 AM EDT) Pathologist [facility] [place] POCT Glucose 194(H) 74 - 99 mg/dL [...] 11/06/2024 10:18 AM EDT [facility] Pharmacy Assistant ID Lacy Griffin 11/07/19 25 10:18 AM EDT [facility] Device ID [id number] 11/06/2024 10:18 AM EDT [facility] Specimen Type POC Capillary 11/06/2024 10:18 AM EDT [facility] Blood Capillary blood specimen / Unknown 11/06/2024 10:16 AM EDT 11/06/2024 10:18 AM EDT Nathaly Nowak MD LAB POINT OF CARE TE ST DOCKED DEVICE UNSOLICITED RESULTS Final Result Performing Organization Address [facility] de Phone Number [facility] [address] [place] [address] * (ABNORMAL) POCT glucose meter (11/06/2024 5:58 [...] for testing. Comment 11/06/2024 6:01 AM EDT [facility] Pharmacy Assistant ID Raj Laird 11/07/19 6:01 AM EDT [facility] Device ID [id number] 11/06/2024 6:01 AM EDT [facility] Specimen Type POC Capillary 11/06/2024 6:01 AM EDT [facility] Blood Capillary blood specimen / Unknown 11/06/2024 5:58 AM EDT 11/06/2024 6:01 AM EDT Nathaly Nowak MD LAB POINT OF CARE TE ST DOCKED DEVICE UNSOLICITED RESULTS Final Result Performing Organization Address City/[facility] Co de Phone Number [facility] [address] [place] [address] * (ABNORMAL) POCT glucose meter (11/06/2024 5:36 AM EDT) Pathologist [facility] [place] POCT Glucose 202(H) 74 - 99 mg/dL [...] Comment 11/06/2024 5:38 AM EDT [facility] Pharmacy Assistant ID Shahid Sanches 11/06/2024 5:38 AM EDT [facility]ALTH[facility]ARE LAB Device ID [id number] 11/06/2024 5:38 AM EDT [facility] Specimen Type POC Capillary 11/06/2024 5:38 AM EDT [facility] Blood Capillary blood specimen / Unknown 11/06/2024 5:36 AM EDT 11/06/2024 5:38 AM EDT us Nathaly Nowak MD LAB POINT OF CARE TE ST DOCKED DEVICE UNSOLICITED RESULTS Final Result Performing Organization Address [facility] Co de Phone Number [facility] [address] [place] [address] * (ABNORMAL) Hemoglobin A1c (11/06/2024 1:07 AM EDT) Hemoglobin A1c 7.6(H) <5.7 % 11/06/2024 11:09 AM EDT [facility] Blood Venous blood specimen / Unknown Venipuncture / Unknown 11/06/2024 1:07 AM EDT 11/06/2024 1:26 AM EDT Narrative [facility] - 11/06/2024 11:09 AM EDT HA1C Interpretive Data: Diagnosis of Diabetes: Diabetic > or = 6.5% Pre-diabetic 5.7 to 6.4% Non-diabetic < or = 5.6% Glycemic Targets for Type I and Type II Diabetics: Non- Adults <7.0% Adults <6.0% Children and Adolescents <7.5% Source: [place] [employer]. Standards of medical care in diabetes,2017. Diabetes Care.2017:40 (suppl 1):S1-S135. us Nathaly Nowak MD LAB BLOOD ORDERABLES Final Resu lt Performing Organization Address City/[facility]/ZIP Co de Phone Number [facility] [address] [place] [address] * Blood Culture (Aerobic/Anaerobet Set) (11/06/2024 1:07 AM EDT) Culture No growth at day 5 11/11/2024 2:49 AM EDT [facility] Blood Structure of right hand / Unknown Venipuncture / Unknown 11/06/2024 1:07 AM EDT 11/06/2024 2:36 AM EDT Nathaly Nowak MD LAB MICROBIOLOGY - GENERAL ORDE RABLES Final Result Performing Organization Address [facility] Co de Phone Number [facility] [address] [place] [address] * Blood Culture (Aerobic/Anaerobet Set) (11/06/2024 1:07 AM EDT) Culture No growth at day 5 11/11/2024 3:01 AM EDT [facility] Blood Structure of antecubital vein / Unknown Venipuncture / Unknown 11/06/2024 1:07 AM EDT 11/06/2024 2:36 AM EDT Nathaly Nowak MD LAB MICROBIOLOGY - GENERAL ORDE LAM Final Result Performing Organization Address [facility] de Phone Number [facility] [address] [place] [address] * (ABNORMAL) Basic metabolic panel (11/06/2024 1:07 AM EDT) Glucose, Plasma 207(H) 74 - 99 mg/dL 11/06/2024 1:41 AM EDT [facility] BUN, Plasma 20 8 - 23 mg/dL 11/06/2024 1:41 AM EDT [facility] Creatinine, Plasma 0.92 0.70 - 1.20 mg/dL 11/06/2024 1:41 AM EDT [facility] BUN/Creatinine Ratio 22 11/06/2024 1:41 AM EDT [facility] Sodium, Plasma 136 136 - 145 mmol/L 11/06/2024 1:41 AM EDT [facility] Potassium, Plasma 4.5 3.6 - 4.9 mmol/L 11/06/2024 1:41 AM EDT [facility] Chloride, Plasma 104 97 - 107 mmol/L 11/06/2024 1:41 AM EDT [facility] CO2, Plasma 22 22 - 29 mmol/L 11/06/2024 1:41 AM EDT [facility] Anion Gap 10 6 - 16 mmol/L 11/06/2024 1:41 AM EDT [facility] Total Calcium, Plasma 9.0 8.9 - 10.2 mg/dL 11/06/2024 1:41 AM EDT [facility] eGFRcr 92.3 mL/min/1.7 3m*2 11/06/2024 1:41 AM EDT [facility] Comment:Reported eGFRcr in m L/min/1.73m2 is based the CKD-EPI 2020 equation that does not use a race coefficient. Blood Venous blood specimen / Unknown Venipuncture / Unknown 11/06/2024 1:07 AM EDT 11/06/2024 1:12 AM EDT us Nathaly Nowak MD LAB BLOOD ORDERABLES Final Resu lt [facility] [address] [place] [address] * Phosphorus (11/06/2024 1:07 AM EDT) Phosphorus, Plasma 3.2 2.5 - 4.5 mg/dL 11/06/2024 1:41 AM EDT [facility] Blood Venous blood specimen / Unknown Venipuncture / Unknown 11/06/2024 1:07 AM EDT 11/06/2024 1:12 AM EDT us Nathaly Nowak MD LAB BLOOD ORDERABLES Final Resu lt [facility] [address] [place] [address] * Magnesium (11/06/2024 1:07 AM EDT) Magnesium, Plasma 2.2 1.9 - 2.4 mg/dL 11/06/2024 1:41 AM EDT [facility] Blood Venous blood specimen / Unknown Venipuncture / Unknown 11/06/2024 1:07 AM EDT 11/06/2024 1:12 AM EDT us Nathaly Nowak MD LAB BLOOD ORDERABLES Final Resu lt [facility] [address] [place] [address] * (ABNORMAL) CBC (11/06/2024 1:07 AM EDT) WBC Count 9.70 3.70 - 10.30 10*3/uL LAB HEMATOLOGY METHOD 11/06/2024 1:19 AM EDT [facility] RBC Count 2.89(L) 4.60 - 6.10 10*6/uL LAB HEMATOLOGY METHOD 11/06/2024 1:19 AM EDT [facility] HGB 8.8(L) 13.7 - 17.5 g/dL LAB HEMATOLOGY METHOD 11/06/2024 1:19 AM EDT [facility] HCT 26.2(L) 40.0 - 51.0 % LAB HEMATOLOGY METHOD 11/06/2024 1:19 AM EDT [facility] Platelet Count 542(H) 155 - 369 10*3/uL LAB HEMATOLOGY METHOD 11/06/2024 1:19 AM EDT [facility] MCV 91 79 - 98 fL LAB HEMATOLOGY METHOD 11/06/2024 1:19 AM EDT [facility] MCH 30.4 26.0 - 32.0 pg LAB HEMATOLOGY METHOD 11/06/2024 1:19 AM EDT [facility] MCHC 33.6 30.7 - 35.5 g/dL LAB HEMATOLOGY METHOD 11/06/2024 1:19 AM EDT [facility] RDW 13.2 11.5 - 14.5 % LAB HEMATOLOGY METHOD 11/06/2024 1:19 AM EDT [facility] MPV 8.7(L) 8.8 - 12.5 fL LAB HEMATOLOGY METHOD 11/06/2024 1:19 AM EDT [facility] nRBC 0.0 <=0.0 per 100 WBCs LAB HEMATOLOGY METHOD 11/06/2024 1:19 AM EDT [facility] Blood Venous blood specimen / Unknown Venipuncture / Unknown 11/06/2024 1:07 AM EDT 11/06/2024 1:12 AM EDT us Nathaly Nowak MD LAB BLOOD ORDERABLES Final Resu lt Performing Organization Address [facility]/ZIP Co de Phone Number [facility] [address] [place] [address] * Gold Top (11/06/2024 12:58 AM EDT) Extra Hold for add-ons 11/06/2024 3:21 AM EDT [facility] Comment:Auto resulted. Blood Venous blood specimen / Unknown 11/06/2024 12:58 AM EDT 11/06/2024 1:13 AM EDT us Nathaly Nowak MD LAB BLOOD ORDERABLES Final Resu lt Performing Organization Address [facility]/ZIP Co de Phone Number [facility] [address] [place] [address] * Gold Top (11/06/2024 12:58 AM EDT) Extra Hold for add-ons 11/06/2024 3:21 AM EDT [facility] Comment:Auto resulted. Blood Venous blood specimen / Unknown 11/06/2024 12:58 AM EDT 11/06/2024 1:13 AM EDT us Nathaly Nowak MD LAB BLOOD ORDERABLES Final Resu lt Performing Organization Address City/[facility] Co de Phone Number [facility] [address] [place] [address] * Light Green Top (11/06/2024 12:58 AM EDT) Extra Hold for add-ons 11/06/2024 3:21 AM EDT [facility] Comment:Auto resulted. Blood Venous blood specimen / Unknown 11/06/2024 12:58 AM EDT 11/06/2024 1:13 AM EDT us Nathaly Nowak MD LAB BLOOD ORDERABLES Final Resu lt Performing Organization Address [facility] Co de Phone Number [facility] [address] [place] [address] * Light Blue Top (11/06/2024 12:58 AM EDT) Extra Hold for add-ons 11/06/2024 3:21 AM EDT [facility] Comment:Auto resulted. Blood Venous blood specimen / Unknown 11/06/2024 12:58 AM EDT 11/06/2024 1:13 AM EDT us Nathaly Nowak MD LAB BLOOD ORDERABLES Final Resu lt Performing Organization Address [facility] de Phone Number [facility] [address] [place] [address] * Light Blue Top (11/06/2024 12:58 AM EDT) Extra Hold for add-ons 11/06/2024 3:21 AM EDT [facility] Comment:Auto resulted. Blood Venous blood specimen / Unknown 11/06/2024 12:58 AM EDT 11/06/2024 1:13 AM EDT Result [facility] us Nathaly Nowak MD LAB BLOOD ORDERABLES Final Resu lt Performing Organization Address [facility] de Phone Number [facility] [address] [place] [address] * (ABNORMAL) POCT glucose meter (11/06/2024 12:45 AM EDT) POCT Glucose 204(H) 74 - 99 mg/dL 11/06/2024 12:48 AM EDT [facility] Comment:Accuracy of a glucos [...] Comment 11/06/2024 12:48 AM EDT [facility] Pharmacy Assistant ID Raj Laird 11/07/19 12:48 AM EDT [facility] LAB Device ID [id number] 11/06/2024 12:48 AM EDT [facility] Specimen Type POC Capillary 11/06/2024 12:48 AM EDT [facility] Blood Capillary blood specimen / Unknown 11/06/2024 12:45 AM EDT 11/06/2024 12:48 AM EDT us Nathaly Nowak MD LAB POINT OF CARE TE ST DOCKED DEVICE UNSOLICITED RESULTS Final Result [facility] [address] [place] [address] documented in this encounter Visit Diagnoses Diagnosis [...] needed, Starting on Mon11/06/24 at 0031, Until [facility] 11/14/24 at 1804, Routine, line care [...] needed, Starting on Mon11/06/24 at 0753, Until [facility] 11/14/24 at 1804, Routine, On Unit [...] Devora Bo) [id number] (Given - Provider: Devora oB)[id number] (Given - Provider: Devora Bo) 0856 (Given [...] documented as of this encounter Care Teams Trimmer Helper Relationship Specialty Start Date End Date Asad Victor MD [address] [place] [address] PCP - General 10/07/22 documented as of this encounter
--- OUTSIDE RECORDS SUMMARY | 2024-11-06 10:47 | XMS_ITS | Encounter Summary ---
Author Organization Healthcare Address [address] [place] [address] Care Team Providers Care Tin Stacker Name Role Phone Asad Victor MD Primary Care Provider + [phone] Reason for Visit * Auth/Cert (Routine) Specialty Diagnoses / Procedures Referred By Contac t Referred To Contact Diagnoses Wound infection Post-op Vasc Sx wounds - sx on 10/17 at Nathaly Nowak MD [address] [facility] [address] [place] [address] Phone: tel: fax: [facility] A Emergency Department [address] [place] [address] Phone: tel: Referral ID Status Reason Start Date Expiration Date Visits Re quested Visits Authorized [id number] 1 1 Encounter Details Date Type Department Care Team (Late st Contact Info) Description 11/06/2024 10:47 AM EDT Anesthesia Event [facility] A OPERATING ROOM [address] [place] [address] Bill Sue MD [address] [place] [address] Sabrina Mckeon PA [address] [facility] [address] [place] [address] Anesthesia Record Procedure Summary Procedure [...] first t dino in the morning (EYE-BUSINESS SUPPORT PROFESSIONAL) to steady your nerves or to [...] and Staff Patient location during procedure: OR CYLINDER BLOCK MECHANIC: Asad Lechuga CRNA, DNP Performed: CYLINDER BLOCK MECHANIC Patient Condition Indications for airway management: anesthesia [...] placement (Left) Location: [facility] OR 16 / [place] OR Surgeons: Nathaly Nowak MD [facility] Mono Ana Bobby is a 64 y.o. [...] Abnormal Ventricular Rate 85 Atrial Rate 85 AL Interval 146 QRSD Interval 128 QT Interval 390 QTC Interval 464 P [place] 52 R [place] 263 T Wave [place] 57 Diagnosis Atrial-sensed ventricular-paced rhythm Diagnosis Biventricular [...] is no recent study available for direct iprp-pn-cuiz comparison. [facility]: Pre-operative CIED Report Assessment and Sara- Procedural Reommendations: Name: Mono Bobby Date: 10/17/2024 : 1960 Age: 64 y.o. Patient has a Underwriting Operations Manager: Berger PATRIOT MISSILE AIR DEFENSE ARTILLERY-PM Remaining battery longevity adequate. Lead integrity test [...] RVR s/p CABG), CAD (CAD s/p multiple CO's and 3V CABG02/2019, 2 stents prior to CABG), carotid artery disease (carotid artery disease s/p R CEA 2016), dysrhythmias (3rd degree AV block PATRIOT MISSILE AIR DEFENSE ARTILLERY-P placed 08/2023 for Wenkeback with 11 sec pause), hyperlipidemia, pacemaker and PVD. Does not have angina, CHF, murmur, orthopnea, syncope or valvular heart disease. hypertension: Cardio additional comments: Follows with OSH Card last seen 09/25/24 ([place]) . Respiratory: home oxygen (2L). no asthma: [...] ENDARTERECTOMY N/A 2017 Endarterectomy Carotid Artery from [employer] CORONARY ANGIOPLASTY Left Coronary Angiography With Concomitant Left Heart Catheterization from [employer] CORONARY ARTERY BYPASS GRAFT N/A 2018 3V ELBOW SURGERY Right ENDARTERECTOMY Left 10/17/2024 common/SFA/Profunda thromboendarterectomy, EIA/BALE BREAKER OPERATOR stent HERNIA REPAIR KNEE ARTHROSCOPY Left VASCULAR SURGERY Left 09/21/2024 BALE BREAKER OPERATOR pseudoaneurym injection [5] Social History Tobacco [...] [facility] [address] [place] [address] 11/26/2024 2:30 PM EDT Hospital Encounter [facility] [address] [place] [address] 11/26/2024 3:20 PM EDT Office Visit [facility] [address] [place] [address] Elisabet Schuster PA [address] [facility] [address] [place] [address] 11/29/2024 2:30 PM EDT Office Visit [place] [address] [place] [address] Oscar Appiah MD [address] [facility] [address] [place] [address] documented as of this encounter Goals Goal Patient Goal Type Associated Problems Recent Progress Patient-Stated? Author Autogenera louise Goal Care Plan Autogenerated Problem No Ekta Arnett documented as of this encounter Procedures Procedure Name Priority Date/Time Associated Diagnosis Comments PB ANESTHESIA PLACEHOLDER Routine 11/06/2024 10:58 AM EDT AL AN ELECTIVE ENDOTRACHEAL AIRWAY Routine 11/06/2024 10:58 AM EDT documented in this encounter Results * AL AN ELECTIVE ENDOTRACHEAL AIRWAY, PB ANESTHESIA PLACEHOLDER (11/06/2024 10:58 AM EDT) Narrative Asad Lechuga CRNA, DNP - 11/06/2024 10:58 AM EDT Asda Lechuga CRNA, DNP 11/06/2024 11:05 AM Airway Date/Time: 11/06/2024 10:58 AM Reason: elective Airway not difficult General Information and Staff Patient location during procedure: OR CYLINDER BLOCK MECHANIC: Asad Lechuga CRNA, DNP Performed: ISH Patient [...] documented as of this encounter Care Teams Tin Stacker Relationship Specialty Start Date End Date Asad Victor MD [address] [place] [address] PCP - General 10/07/22 documented as of this encounter
--- OUTSIDE RECORDS SUMMARY | 2024-11-18 13:10 | XMS_ITS | Encounter Summary ---
Author Organization [employer] ([place], [place], [place], [place]) Address [address] [place] [address] Care Team Providers Care Neonatal Surgeon Name Role Phone Unavailable Primary Care Provider Unavailabl e Reason for Visit * Reason Comments Wound Care Encounter Details Date Type Department Care Team (Late st Contact Info) Description 11/18/2024 1:10 PM EDT Office Visit [facility] 1 [place] [address] Jerry Monroe Jr., MD [address] [place] [address] Non-pressure chronic ulcer of skin of [...] health nurse( if you have home health) [facility] for an appointment. documented in this [...] upper leg. Patient was admitted to the [facility] on November 05, 2024 and dischargedon [...] line. Patient is getting daily infusions at [facility] through his PICC line for antibiotics. [...] provider verified the correct patient, procedure, equipment, technical support intern, and site/side marked as required. Debridement Details [...] provider verified the correct patient, procedure, equipment, technical support intern, and site/side marked as required. Debridement Details [...] Description 11/27/2024 2:20 PM EDT Office Visit [facility] [place] 1 [place] [address] Jerry Monroe Jr., MD [address] [place] [address] 11/29/2024 4:00 PM EDT Clinical Support [facility] [address] [address] 12/02/2024 2:15 PM EDT Clinical Support [facility] [address] [address] 12/04/2024 3:10 PM EDT Office Visit [address] [address] Jerry Monroe Jr., MD [address] [place] [address] 12/06/2024 4:15 PM EDT Clinical Support [facility] [address] [address] 12/09/2024 3:30 PM EDT Clinical Support [facility] [address] [address] 12/11/2024 2:40 PM EDT Office Visit [facility] [address] [address] Jerry Monroe Jr., MD [address] [place] [address] 12/13/2024 3:30 PM EDT Clinical Support [facility] 1 [place] [address] 12/16/2024 3:30 PM EDT Clinical Support [facility] 1 [place] [address] 12/18/2024 3:00 PM EDT Office Visit [facility] [place] 1 [place] [address] Jerry Monroe Jr., MD [address] [place] [address] 12/20/2024 3:30 PM EDT Clinical Support [facility] 1 [place] [address] documented as of this encounter Procedures Procedure Name Priority Date/Time Associated Diagnosis Comments [place] DEBRIDEMENT MUSCLE &/FASCIA EA ADDL 20 SQ CM Routine 11/18/2024 1:10 PM EDT 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) Localized tissue (HCC) Other specified local infections of the skin and subcutaneous tissue [place] DEBRIDEMENT MUSCLE &/FASCIA EA ADDL 20 SQ CM Routine 11/18/2024 1:10 PM EDT 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) Localized tissue (HCC) Other specified local infections of the skin and subcutaneous tissue [place] DEBRIDEMENT MUSCLE &/FASCIA 1ST 20 SQ CM/< Routine 11/18/2024 1:10 PM EDT 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) Localized tissue (HCC) Other specified local infections of the skin and subcutaneous tissue [place] DEBRIDEMENT MUSCLE &/FASCIA EA ADDL 20 SQ CM Routine 11/18/2024 1:10 PM EDT 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) Localized tissue (HCC) Other specified local infections of the skin and subcutaneous tissue [place] DEBRIDEMENT MUSCLE &/FASCIA EA ADDL 20 SQ CM Routine 11/18/2024 1:10 PM EDT 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) Localized tissue (HCC) Other specified local infections of the skin and subcutaneous tissue [place] DEBRIDEMENT MUSCLE &/FASCIA 1ST 20 SQ CM/< Routine 11/18/2024 1:10 PM EDT 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 Debridement Details [...] MD PROCEDURE/MINOR SURGICAL ORDERABLES Final Result * [place] DEBRIDEMENT MUSCLE &/FASCIA 1ST 20 SQ CM/<, [place] DEBRIDEMENT MUSCLE &/FASCIA EA ADDL 20SQ CM, [place] DEBRIDEMENT MUSCLE &/FASCIA EA ADDL 20 SQ [...] provider verified the correct patient, procedure, equipment, technical support intern, and site/side marked as required. Debridement Details [...]
--- OUTSIDE RECORDS SUMMARY | 2024-11-20 14:15 | XMS_ITS | Encounter Summary ---
Author Organization [employer] ([place], [place], [place], [place]) Address [address] [place] [address] Care Team Providers Care Fha Underwriter Name Role Phone Unavailable Primary Care Provider Unavailabl e Reason for Visit * Reason Comments Wound Care Nurse visit for woun d vac change, wound care and dressing change Encounter Details Date Type Department Care Team (Late st Contact Info) Description 11/20/2024 2:15 PM EDT Clinical Support [facility] 1 [place] [address] Jerry Monroe Jr., MD [address] [place] [address] Non-pressure chronic ulcer of skin of [...] Description 11/27/2024 2:20 PM EDT Office Visit [facility] [place] 1 [place] [address] Jerry Monroe Jr., MD [address] [place] [address] 11/29/2024 4:00 PM EDT Clinical Support [facility] 1 [place] [address] 12/02/2024 2:15 PM EDT Clinical Support [facility] 1 [place] [address] 12/04/2024 3:10 PM EDT Office Visit [facility] 1 [place] [address] Jerry Monroe Jr., MD [address] [place] [address] 12/06/2024 4:15 PM EDT Clinical Support [facility] 1 [place] [address] 12/09/2024 3:30 PM EDT Clinical Support [facility] 1 [place] [address] 12/11/2024 2:40 PM EDT Office Visit [facility] 1 [place] [address] Jerry Monroe Jr., MD [address] [place] [address] 12/13/2024 3:30 PM EDT Clinical Support [facility] 1 [place] [address] 12/16/2024 3:30 PM EDT Clinical Support [facility] [place] 1 [place] [address] 12/18/2024 3:00 PM EDT Office Visit [facility] 1 [place] [address] Jerry Monroe Jr., MD [address] [place] [address] 12/20/2024 3:30 PM EDT Clinical Support 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
--- OUTSIDE RECORDS SUMMARY | 2024-11-22 16:15 | XMS_ITS | Encounter Summary ---
Author Organization [employer] ([place], [place], [place], [place]) Address [address] [place] [address] Care Team Providers Care Metal Fabrication Supervisor Name Role Phone Unavailable Primary Care Provider Unavailabl e Reason for Visit * Reason Comments Wound Care Encounter Details Date Type Department Care Team (Late st Contact Info) Description 11/22/2024 4:15 PM EDT Clinical Support [facility] 1 [place] [address] Jerry Monroe Jr., MD [address] [place] [address] Non-pressure chronic ulcer of skin of [...] Description 11/27/2024 2:20 PM EDT Office Visit [facility] [place] 1 [place] [address] Jerry Monroe Jr., MD [address] [place] [address] 11/29/2024 4:00 PM EDT Clinical Support [facility] 1 [place] [address] 12/02/2024 2:15 PM EDT Clinical Support [facility] [place] 1 [place] [address] 12/04/2024 3:10 PM EDT Office Visit [facility] [place] 1 [place] [address] Jerry Monroe Jr., MD [address] [place] [address] 12/06/2024 4:15 PM EDT Clinical Support [facility] [place] 1 [place] [address] 12/09/2024 3:30 PM EDT Clinical Support [facility] 1 [place] [address] 12/11/2024 2:40 PM EDT Office Visit [facility] 1 [place] [address] Jerry Monroe Jr., MD [address] [place] [address] 12/13/2024 3:30 PM EDT Clinical Support [address] [address] 12/16/2024 3:30 PM EDT Clinical Support [address] [address] 12/18/2024 3:00 PM EDT Office Visit [address] [address] Jerry Monroe Jr., MD [address] [place] [address] 12/20/2024 3:30 PM EDT Clinical Support [address] [address] documented as of this encounter Procedures Procedure [...]
--- OUTSIDE RECORDS SUMMARY | 2024-11-23 07:48 | XMS_ITS | Encounter Summary ---
Author Organization Healthcare Address [address] [place] [address] Care Team Providers Care Eating Disorder Specialist Name Role Phone Asad Victor MD Primary Care Provider + [phone] Encounter Details Date Type Department Care Team (Late st Contact Info) Description 09/20/2024 Orders Only External Location [address] [place] [address] Timothy Marques PA [address] [place] [id number] Social History Tobacco Use Types Packs/Day Years [...] first t dino in the morning (EYE-QA TEST LEAD) to steady your nerves or to [...] Encounter [facility] [address] [facility] 5th Floor Wing [address], [address] [place] [address] 11/26/2024 2:30 PM EDT Hospital Encounter [facility] [address] [facility] 5th Floor Wing [address], [address] [place] [address] 11/26/2024 3:20 PM EDT Office Visit [facility] [address] [facility] 5th Floor Wing [address], [address] [place] [address] Elisabet Schuster, PA [address] [facility] [address] [place] [address] 11/29/2024 2:30 PM EDT Office Visit [facility] [address] [place] [address] Oscar Appiah MD [address] [facility] [address] [place] [address] documented as of this encounter Procedures Procedure [...] documented as of this encounter Care Teams Eating Disorder Specialist Relationship Specialty Start Date End Date Asad Victor MD [address] [place] [address] PCP - General 10/07/22 documented as of this encounter
--- OUTSIDE RECORDS SUMMARY | 2024-11-23 07:48 | XMS_ITS | Encounter Summary ---
Author Organization Healthcare Address [address] [place] [address] Care Team Providers Care Central Station Operator Name Role Phone Asad Victor MD Primary Care Provider + [phone] Encounter Details Date Type Department Care Team (Late st Contact Info) Description 09/21/2024 Orders Only External Location [address] [place] [address] Provider, External Social History Tobacco Use Types [...] drink first t dino in the morning (EYE-LIME PULLER) to steady your nerves or to get [...] Description 11/26/2024 2:00 PM EDT Hospital Encounter [facility] [address] [place] [address] 11/26/2024 2:30 PM EDT Hospital Encounter [facility] [address] [place] [address] 11/26/2024 3:20 PM EDT Office Visit [facility] [address] [facility] 5th Floor Wing [address] [place] [address] Elisabet Schuster PA [address] [facility] [address] [place] [address] 11/29/2024 2:30 PM EDT Office Visit [place] [address] [place] [address] [place] [address] [place] [address] [address] [place] [address] documented as of this encounter [...] documented as of this encounter Care Teams Central Station Operator Relationship Specialty Start Date End Date Asad Victor MD [address] [place] [address] PCP - General 10/07/22 documented as of this encounter
--- OUTSIDE RECORDS SUMMARY | 2024-11-23 07:49 | XMS_ITS | Encounter Summary ---
Author Organization Healthcare Address [address] [place] [address] Care Team Providers Care E Commerce Analyst Name Role Phone Asad Victor MD Primary Care Provider + [phone] Encounter Details Date Type Department Care Team (Late st Contact Info) Description 09/20/2024 Orders Only External Location [address] [place] [address] Timothy Marques PA [address] [place] [id number] Social History Tobacco Use Types Packs/Day Years [...] drink first t dino in the morning (EYE-CARAMEL COLORING OPERATOR) to steady your nerves or to [...] Description 11/26/2024 2:00 PM EDT Hospital Encounter [facility] [address] [facility] 5th Floor Wing [address], [address] [place] [address] 11/26/2024 2:30 PM EDT Hospital Encounter [facility] [address] [facility] 5th Floor Wing [address] [place] [address] 11/26/2024 3:20 PM EDT Office Visit [facility] [address] [facility] 5th Floor Wing [address] [place] [address] Elisabet Schuster, PA [address] [facility] [address] [place] [address] 11/29/2024 2:30 PM EDT Office Visit [facility] [address] [place] [address] Oscar Appiah MD [address] [facility] [address] [place] [address] documented as of this encounter Procedures Procedure [...] documented as of this encounter Care Teams E Commerce Analyst Relationship Specialty Start Date End Date Asad Victor MD [address] [place] [address] PCP - General 10/07/22 documented as of this encounter
--- OUTSIDE RECORDS SUMMARY | 2024-11-23 07:51 | XMS_ITS | Encounter Summary ---
Author Organization [facility] Address [address] [place] [address] Care Team Providers Care Supervisor Waterproofing Name Role Phone Asad Victor MD Primary Care Provider + [phone] Encounter Details Date Type Department Care Team [...] drink first t dino in the morning (EYE-MOLDING MACHINE TENDER) to steady your nerves or to [...] System [facility] [address] 5th Floor [address] [place] [address] 11/26/2024 2:30 PM EDT Hospital Encounter [facility] [address] 5th Floor [address] [place] [address] 11/26/2024 3:20 PM EDT Office Visit [facility] [address] 5th Floor [address] [place] [address] Elisabet Schuster, PA [address] [place] [address] 11/29/2024 2:30 PM EDT Office Visit [facility] [address] [facility] [place] [address] Oscar Appiah MD [address] [facility] [address] [place] [address] documented as of this encounter [...] as of this encounter Care Teams Supervisor Waterproofing Relationship Specialty Start Date End Date Asad Victor MD [address] [place] [address] PCP - General 10/07/22 documented as of this encounter
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
--- OUTSIDE RECORDS SUMMARY | 2024-11-23 07:52 | XMS_ITS | Encounter Summary ---
Author Organization Healthcare Address [address] [id number] Care Team Providers Care Halal Butcher Name Role Phone Asad Victor MD Primary Care Provider + [phone] Reason for Visit * Reason Onset Date Comments HCN Clinical Concern/Question 11/15/2024 Encounter Details Date Type Department Care Team (Late st Contact Info) Description 11/15/2024 Telephone [facility] [address] [facility] 5th Floor Wing [address], [address] [place] [address] Nathaly Nowak MD [address] [facility] [address] [place] [address] HCN Clinical Concern/Question Social History [...] drink first t dino in the morning (EYE-CART DRIVER) to steady your nerves or to [...] with info. Thank you Best contact number: [phone] (mobile) Optimal time of day to reach caller: ANYTIME Additional comments/information from caller: None Note: Please do not reply to this message. Follow-up communication and further actions as a result of this message need to be communicated with the patient directly, if the patient is not active onMyChart. If the patient is active on MyChart, they will receive notification of the communication/outcome via [employer]. documented in this encounter Plan of Treatment Upcoming Encounters Date Type Department Care Team (Late st Contact Info) Description 11/26/2024 2:00 PM EDT Hospital Encounter [facility] [address], [address] [place] [address] 11/26/2024 2:30 PM EDT Hospital Encounter [facility] [address], [address] [place] [address] 11/26/2024 3:20 PM EDT Office Visit [facility] [address] [facility] 5th Floor Wing [address], [address] [place] [address] Elisabet Schuster PA [address] [facility] [address] [place] [address] 11/29/2024 2:30 PM EDT Office Visit [facility] [address] [place] [address] Oscar Appiah MD [address] [facility] [address] [place] [address] documented as of this encounter Goals Goal [...] documented as of this encounter Care Teams Halal Butcher Relationship Specialty Start Date End Date Asad Victor MD [address] [place] [address] PCP - General 10/07/22 documented as of this encounter
--- OUTSIDE RECORDS SUMMARY | 2024-11-23 07:53 | XMS_ITS | Encounter Summary ---
Author Organization Healthcare Address [address] [place] [address] Care Team Providers Care Slime Plant Operator Helper Name Role Phone Asad Victor MD Primary Care Provider + [phone] Encounter Details Date Type Department Care Team (Late st Contact Info) Description 10/17/2024 Orders Only External Location [address] [place] [address] Provider, External Social History Tobacco Use Types [...] the past 12 months has th e [employer], gas, oil, or water [employer] threatened to shut off services in your [...] [facility] [address] [facility] 5th Floor Wing D, [address] [place] [address] 11/26/2024 2:30 PM EDT Hospital Encounter [facility] [address] [facility] 5th Floor Wing [address], [address] [place] [address] 11/26/2024 3:20 PM EDT Office Visit [facility] [address] [facility] 5th Floor Wing [address], [address] [place] [address] Elisabet Schuster PA [address] [place] [address] 11/29/2024 2:30 PM EDT Office Visit [facility] [address] [place] [address] Oscar Appiah MD [address] [facility] [place] [address] [place] [address] documented as of this encounter [...] documented as of this encounter Care Teams Slime Plant Operator Helper Relationship Specialty Start Date End Date Asad Victor MD [address] [place] [address] PCP - General 10/07/22 documented as of this encounter
--- OUTSIDE RECORDS SUMMARY | 2024-11-23 07:53 | XMS_ITS | Encounter Summary ---
Author Organization [facility] Address [address] [place] [address] Care Team Providers Care Research Home Economist Name Role Phone Asad Victor MD Primary Care Provider + [phone] Encounter Details Date Type Department Care Team [...] drink first t dino in the morning (EYE-NATIONAL ACCOUNT REPRESENTATIVE) to steady your nerves or to [...] Description 11/26/2024 2:00 PM EDT Hospital Encounter [facility] [address] 5th Floor Wing [address], [address] [place] [address] 11/26/2024 2:30 PM EDT Hospital Encounter [facility] [address] 5th Floor Wing [address], [address] [place] [address] 11/26/2024 3:20 PM EDT Office Visit [facility] [address] 5th Floor [address], [address] [place] [address] Elisabet Schuster, PA [address] [place] [address] 11/29/2024 2:30 PM EDT Office Visit [facility] [address] [facility] [place] [address] Oscar Appiah MD [address] [facility] [address] [place] [address] documented as of this encounter [...] documented as of this encounter Care Teams Research Home Economist Relationship Specialty Start Date End Date Asad Victor MD [address] [place] [address] PCP - General 10/07/22 documented as of this encounter
--- OUTSIDE RECORDS SUMMARY | 2024-11-23 07:53 | XMS_ITS | Referral Summary ---
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) 11/20/2024 Travel 11/20/2024 2:15 PM EDT Clinical Support [facility] 1 [place] [address] Jerry Monroe Jr., MD 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) 11/18/2024 Travel 11/18/2024 1:10 PM EDT Office Visit [facility] 1 [place] [address] Jerry Monroe Jr., MD Non-pressure [...] Description 11/27/2024 2:20 PM EDT Office Visit [facility] 1 [place] [address] Jerry Monroe Jr., MD [address] [place] [address] 11/29/2024 4:00 PM EDT Clinical Support [facility] 1 [place] [address] 12/02/2024 2:15 PM EDT Clinical Support [address] [address] 12/04/2024 3:10 PM EDT Office Visit [address] [address] Jerry Monroe Jr., MD [address] [place] [address] 12/06/2024 4:15 PM EDT Clinical Support [address] [address] 12/09/2024 3:30 PM EDT Clinical Support [address] [address] 12/11/2024 2:40 PM EDT Office Visit [address] [address] Jerry Monroe Jr., MD [address] [place] [address] 12/13/2024 3:30 PM EDT Clinical Support [address] [address] 12/16/2024 3:30 PM EDT Clinical Support [facility] 1 [place] [address] 12/18/2024 3:00 PM EDT Office Visit [facility] 1 [place] [address] Jerry Monroe Jr., MD [address] [place] [address] 12/20/2024 3:30 PM EDT Clinical Support [facility] 1 [place] [address] Procedures Procedure Name Priority Date/Time Associated Diagnosis Comments WOUND TREATMENT Routine 11/22/2024 5:14 PM EDT 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) OK DEBRIDEMENT MUSCLE &/FASCIA EA ADDL 20 SQ CM Routine 11/18/2024 1:10 PM EDT 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) Localized tissue (HCC) Other specified local infections of the skin and subcutaneous tissue OK DEBRIDEMENT MUSCLE &/FASCIA EA ADDL 20 SQ CM Routine 11/18/2024 1:10 PM EDT 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) Localized tissue (HCC) Other specified local infections of the skin and subcutaneous tissue OK DEBRIDEMENT MUSCLE &/FASCIA 1ST 20 SQ CM/< Routine 11/18/2024 1:10 PM EDT 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) Localized tissue (HCC) Other specified local infections of the skin and subcutaneous tissue OK DEBRIDEMENT MUSCLE &/FASCIA EA ADDL 20 SQ CM Routine 11/18/2024 1:10 PM EDT 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) Localized tissue (HCC) Other specified local infections of the skin and subcutaneous tissue OK DEBRIDEMENT MUSCLE &/FASCIA EA ADDL 20 SQ CM Routine 11/18/2024 1:10 PM EDT 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) Localized tissue (HCC) Other specified local infections of the skin and subcutaneous tissue OK DEBRIDEMENT MUSCLE &/FASCIA 1ST 20 SQ CM/< Routine 11/18/2024 1:10 PM EDT 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) Localized tissue (HCC) Other specified local infections of the skin and subcutaneous tissue from Last 3 Months Results * Wound Treatment (11/22/2024 5:14 PM EDT) us Jerry Monroe Jr., MD NURSING PATHWAYS ORDERABL ES Final Result * OK DEBRIDEMENT MUSCLE &/FASCIA 1ST 20 SQ CM/<, [place] DEBRIDEMENT MUSCLE &/FASCIA EA ADDL 20SQ CM, [place] DEBRIDEMENT MUSCLE &/FASCIA EA ADDL 20 SQ [...] MD PROCEDURE/MINOR SURGICAL ORDERABLES Final Result * OK DEBRIDEMENT MUSCLE &/FASCIA 1ST 20 SQ CM/<, [place] DEBRIDEMENT MUSCLE &/FASCIA EA ADDL 20SQ CM, OK DEBRIDEMENT MUSCLE &/FASCIA EA ADDL 20 SQ [...] Final Result from Last 3 Mon[address] Insurance [facility] MCR ADV DUAL COMPLETE MEDICAID OF [place]
--- OUTSIDE RECORDS SUMMARY | 2024-11-23 07:53 | XMS_ITS | Encounter Summary ---
Author Organization [facility] Address [address] [place] [address] Care Team Providers Care Procurement Technician Name Role Phone Asad Victor MD Primary Care Provider + [phone] Encounter Details Date Type Department Care Team [...] time in the [facility], were you homeless or living [...] drink first t dino in the morning (EYE-YOUTH MANAGER) to steady your nerves or to [...] [facility] [address] [place] [address] 11/26/2024 2:30 PM EDT Hospital Encounter [facility] [address] 5th Floor [address], [address] [place] [address] 11/26/2024 3:20 PM EDT Office Visit [facility] [address] 5th Floor [address], [address] [place] [address] Elisabet Schuster, PA [address] [facility] [address] [place] [address] 11/29/2024 2:30 PM EDT Office Visit [facility] [address] [facility] [place] [address] Oscar Appiah MD [address] [facility] [address] [place] [address] documented as [...] documented as of this encounter Care Teams Procurement Technician Relationship Specialty Start Date End Date Asad Victor MD [address] [place] [address] PCP - General 10/07/22 documented as of this encounter
--- OUTSIDE RECORDS SUMMARY | 2024-11-23 07:53 | XMS_ITS | Clinical Summary ---
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) 11/20/2024 Travel 11/18/2024 1:10 PM EDT Office Visit [facility] [place] 1 [place] [address] Jerry Monroe Jr., MD Non-pressure chronic ulcer [...] Description 11/27/2024 2:20 PM EDT Office Visit [facility] 1 [place] [address] Jerry Monroe Jr., MD [address] [place] [address] 11/29/2024 4:00 PM EDT Clinical Support [facility] 1 [place] [address] 12/02/2024 2:15 PM EDT Clinical Support [address] [address] 12/04/2024 3:10 PM EDT Office Visit [address] [address] Jerry Monroe Jr., MD [address] [place] [address] 12/06/2024 4:15 PM EDT Clinical Support [address] [address] 12/09/2024 3:30 PM EDT Clinical Support [address] [address] 12/11/2024 2:40 PM EDT Office Visit [address] [address] Jerry Monroe Jr., MD [address] [place] [address] 12/13/2024 3:30 PM EDT Clinical Support [address] [address] 12/16/2024 3:30 PM EDT Clinical Support [facility] 1 [place] [address] 12/18/2024 3:00 PM EDT Office Visit [facility] 1 [place] [address] Jerry Monroe Jr., MD [address] [place] [address] 12/20/2024 3:30 PM EDT Clinical Support [facility] 1 [place] [address] Health Maintenance Due Date Last [...] 02/06/2021 Tobacco Cessation Counseling and Screening (12+) 11/20/2025 11/22/2024 Procedures Procedure Name Priority Date/Time Associated Diagnosis Comments WOUND TREATMENT Routine 11/22/2024 5:14 PM EDT 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) [place] DEBRIDEMENT MUSCLE &/FASCIA EA ADDL 20 SQ CM Routine 11/18/2024 1:10 PM EDT 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) Localized tissue (HCC) Other specified local infections of the skin and subcutaneous tissue NH DEBRIDEMENT MUSCLE &/FASCIA EA ADDL 20 SQ CM Routine 11/18/2024 1:10 PM EDT 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) Localized tissue (HCC) Other specified local infections of the skin and subcutaneous tissue NH DEBRIDEMENT MUSCLE &/FASCIA 1ST 20 SQ CM/< Routine 11/18/2024 1:10 PM EDT 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) Localized tissue (HCC) Other specified local infections of the skin and subcutaneous tissue NH DEBRIDEMENT MUSCLE &/FASCIA EA ADDL 20 SQ CM Routine 11/18/2024 1:10 PM EDT 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) Localized tissue (HCC) Other specified local infections of the skin and subcutaneous tissue NH DEBRIDEMENT MUSCLE &/FASCIA EA ADDL 20 SQ CM Routine 11/18/2024 1:10 PM EDT 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) Localized tissue (HCC) Other specified local infections of the skin and subcutaneous tissue NH DEBRIDEMENT MUSCLE &/FASCIA 1ST 20 SQ CM/< Routine 11/18/2024 1:10 PM EDT 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 Debridement Details [...] MD PROCEDURE/MINOR SURGICAL ORDERABLES Final Result * NH DEBRIDEMENT MUSCLE &/FASCIA 1ST 20 SQ CM/<, [place] DEBRIDEMENT MUSCLE &/FASCIA EA ADDL 20SQ CM, [place] DEBRIDEMENT MUSCLE &/FASCIA EA ADDL 20 SQ [...] provider verified the correct patient, procedure, equipment, residential direct support professional, and site/side marked as required. Debridement Details [...] Final Result from Last 3 Months Insurance [facility] ADV DUAL COMPLETE MEDICAID OF [place]
--- OUTSIDE RECORDS SUMMARY | 2024-11-23 07:53 | XMS_ITS | Encounter Summary ---
Author Organization Healthcare Address [address] [id number] Care Team Providers Care Chief Ophthalmic Technician Name Role Phone Asad Victor MD Primary Care Provider + [phone] Encounter Details Date Type Department Care Team (Late st Contact Info) Description 10/22/2024 Telephone Vascular Surgery [address] [place] [address] Alison Beltrán, TOSSER, DNP [address] [facility] [address] [place] [address] Social History Tobacco Use Types Packs/Day Years [...] drink first t dino in the morning (EYE-SDV PILOT/NAVIGATOR/DDS OPERATOR) to steady your nerves or to [...] Notes * Telephone Encounter - Alison Beltrán, TOSSER, DNP - 10/22/2024 11:39 AM EDT Returned patient call. Patient s/p left common/superficial/profunda femoral thromboendarterectomy with bovine patch repair and left external iliac artery/ENTRY ENGINEER stent with Dr Gautam on 10/17/24. Patient [...] Description 11/26/2024 2:00 PM EDT Hospital Encounter [facility] [address] [place] [address] 11/26/2024 2:30 PM EDT Hospital Encounter [facility] [address] [place] [address] 11/26/2024 3:20 PM EDT Office Visit [facility] [address] [place] [address] Elisabet Schuster, GLENDA [address] [facility] [address] [place] [address] 11/29/2024 2:30 PM EDT Office Visit [facility] [address] [place] [address] Oscar Appiah MD [address] [facility] [address] [place] [address] documented as of this encounter [...] as of this encounter Care Teams Chief Ophthalmic Technician Relationship Specialty Start Date End Date Asad Victor MD [address] [place] [address] PCP - General 10/07/22 documented as of this encounter
--- OUTSIDE RECORDS SUMMARY | 2024-11-23 07:54 | XMS_ITS | Encounter Summary ---
Author Organization Healthcare Address [address] [place] [address] Care Team Providers Care Franchise Manager Name Role Phone Asad Victor MD Primary Care Provider + [phone] Encounter Details Date Type Department Care Team (Late st Contact Info) Description 11/15/2024 Clinical Support [id number] [place] [address] Charly Orlando, PharmD [address] [place] [address] [address] [place] [address] Social History Tobacco Use Types [...] drink first t dino in the morning (EYE-ROCK CUTTER) to steady your nerves or to get rid of a hangover? 0 10/18/2021 CAGE Questionnaire Score 0 022 Utilities Answer Date Recorded In the past 12 months has th e [employer], gas, oil, or water company threatened [...] [facility] [address] 5th Floor [address] [place] [address] 11/26/2024 2:30 PM EDT Hospital Encounter [facility] [address] 5th Floor Wing [address], [address] [place] [address] 11/26/2024 3:20 PM EDT Office Visit [facility] [address] 5th Floor [address], [address] [place] [address] Elisabet Schuster PA [address] [place] [address] 11/29/2024 2:30 PM EDT Office Visit [facility] [address] [facility] [place] [address] Oscar Appiah MD [address] [facility] [address] [place] [address] documented as of this encounter [...] documented as of this encounter Care Teams Franchise Manager Relationship Specialty Start Date End Date Asad Victor MD [address] [place] [address] PCP - General 10/07/22 documented as of this encounter
--- OUTSIDE RECORDS SUMMARY | 2024-11-23 07:54 | XMS_ITS | Encounter Summary ---
Author Organization Healthcare Address [address] [place] [address] Care Team Providers Care Manager Digital Ad Operations Name Role Phone Asad Victor MD Primary Care Provider + [phone] Encounter Details Date Type Department Care Team (Late st Contact Info) Description 11/05/2024 Orders Only External Location [address] [place] [address] Provider, External Social History Tobacco Use Types [...] any time in the past 12 m [facility], were you homeless or living in [...] drink first t dino in the morning (EYE-DIVIDING MACHINE OPERATOR) to steady your nerves or to get rid of a hangover? 0 10/18/2021 CAGE Questionnaire Score 0 022 Utilities Answer Date Recorded In the past 12 months has th e [employer], gas, oil, or water company threatened to [...] Encounter [facility] [address] [facility] 5th Floor [address], [address] [place] [address] 11/26/2024 2:30 PM EDT Hospital Encounter [facility] [address] [facility] 5th Floor Wing [address] [place] [address] 11/26/2024 3:20 PM EDT Office Visit [facility] [address] 5th Floor [address] [place] [address] Elisabet Schuster PA [address] [place] [address] 11/29/2024 2:30 PM EDT Office Visit [facility] [address] [place] [address] Oscar Appiah MD [address] [facility] [address] [place] [address] documented as of this encounter [...] as of this encounter Care Teams Manager Digital Ad Operations Relationship Specialty Start Date End Date Asad Victor MD [address] [place] [address] PCP - General 10/07/22 documented as of this encounter
--- OUTSIDE RECORDS SUMMARY | 2024-11-23 07:54 | XMS_ITS | Encounter Summary ---
Author Organization [facility] Address [address] [place] [address] Care Team Providers Care Poem Writer Name Role Phone Asad Victor MD Primary Care Provider + [phone] Encounter Details Date Type Department Care Team [...] drink first t dino in the morning (EYE-SOAP WORKER) to steady your nerves or to [...] Description 11/26/2024 2:00 PM EDT Hospital Encounter [facility] [address] [place] [address] 11/26/2024 2:30 PM EDT Hospital Encounter [facility] [address] [place] [address] 11/26/2024 3:20 PM EDT Office Visit [facility] [address] [facility] 5th Floor [address] [place] [address] Elisabet Schuster, PA [address] [place] [address] 11/29/2024 2:30 PM EDT Office Visit [address] [place] [address] Oscar Appiah MD [address] [place] [address] [address] [place] [address] documented as of this encounter [...] documented as of this encounter Care Teams Poem Writer Relationship Specialty Start Date End Date Asad Victor MD [address] [place] [address] PCP - General 10/07/22 documented as of this encounter
--- OUTSIDE RECORDS SUMMARY | 2024-11-23 07:54 | XMS_ITS | Encounter Summary ---
Author Organization [employer] ([place], [place], [place], [place]) Address [address] [place] [address] Care Team Providers Care Distribution Operations Supervisor Name Role Phone Unavailable Primary Care [...] Description 11/27/2024 2:20 PM EDT Office Visit [facility] [place] [address] [place] [address] Jerry Monroe Jr., MD [address] [place] [address] 11/29/2024 4:00 PM EDT Clinical Support [facility] [address] [address] 12/02/2024 2:15 PM EDT Clinical Support [facility] [address] [address] 12/04/2024 3:10 PM EDT [facility] Visit [facility] [place] [address] Jerry Monroe Jr., MD [address] [place] [address] 12/06/2024 4:15 PM EDT Clinical Support [facility] 1 [place] [address] 12/09/2024 3:30 PM EDT Clinical Support [facility] [place] [address] [place] [address] 12/11/2024 2:40 PM EDT Office Visit [facility] [place] [address] Jerry Monroe Jr., MD [address] [place] [address] 12/13/2024 3:30 PM EDT Clinical Support [facility] [address] [place] [address] 12/16/2024 3:30 PM EDT Clinical Support [facility] [place] [address] 12/18/2024 3:00 PM EDT Office Visit [facility] [place] [address] Jerry Monroe Jr., MD [address] [place] [address] 12/20/2024 3:30 PM EDT Clinical Support [facility] 1 [place] [address] documented as of this encounter Visit Diagnoses Not on filedocumented in this encounter
--- OUTSIDE RECORDS SUMMARY | 2024-11-23 07:55 | XMS_ITS | Encounter Summary ---
Author Organization [employer] ([place], [place], [place], [place]) Address [address] [place] [address] Care Team Providers Care Fence Installer Foreman Name Role Phone Unavailable Primary Care Provider [...] Description 11/27/2024 2:20 PM EDT Office Visit [facility] [place] [address] [place] [address] Jerry Monroe Jr., MD [address] [place] [address] 11/29/2024 4:00 PM EDT Clinical Support [facility] Care [address] [address] 12/02/2024 2:15 PM EDT Clinical Support [facility] [address] [address] 12/04/2024 3:10 PM EDT Office Visit [facility] 1 [place] [address] Jerry Monroe Jr., MD [address] [place] [address] 12/06/2024 4:15 PM EDT Clinical Support [facility] 1 [place] [address] 12/09/2024 3:30 PM EDT Clinical Support [facility] [place] [address] [place] [address] 12/11/2024 2:40 PM EDT Office Visit [facility] 1 [place] [address] Jerry Monroe Jr., MD [address] [place] [address] 12/13/2024 3:30 PM EDT Clinical Support [facility] 1 [place] [address] 12/16/2024 3:30 PM EDT Clinical Support [facility] 1 [place] [address] 12/18/2024 3:00 PM EDT Office Visit [facility] 1 [place] [address] Jerry Monroe Jr., MD [address] [place] [address] 12/20/2024 3:30 PM EDT Clinical Support [facility] 1 [place] [address] documented as of this encounter Visit Diagnoses Not on filedocumented in this encounter
[2024-11-23 08:00] VITALS: BP 160/69; PULSE 72; RESP 18; TEMP 36.5; O2SAT 95
[2024-11-23] MEDS: MICAFUNGIN SODIUM IV (08:02)
[2024-11-23] MEDS: SODIUM CHLORIDE 0.9% IV (08:02)
[2024-11-23] MEDS: ERTAPENEM SODIUM 1 GM in 0.9 % SODIUM CHLORIDE 50 ML IV (08:56)
[2024-11-23 09:00] VITALS: BP 166/61; PULSE 62; RESP 18; O2SAT 98
[2024-11-23 09:34] VITALS: BP 159/64; PULSE 70; RESP 18; TEMP 36.6; O2SAT 98
== END 2024-11-23 09:35 | disposition home or self-care (01) ==
LOC: INF 07:47
PROVIDERS: PCP Family Medicine
DX: E10.69 Type 1 diabetes mellitus with other specified complication (principal); E78.5 Hyperlipidemia, unspecified
CPT/HCPCS: 96365; 99212; G0463; J1335; J2248

== ENCOUNTER 2024-11-24 07:55 | Outpatient (CLI) | payer MEDICARE, OTHER, SELFPAY ==
--- OUTSIDE RECORDS SUMMARY | 2024-10-11 10:15 | XMS_ITS | Encounter Summary ---
Author Organization [facility] Address [address] [place] [place] [address] Care Team Providers Care Gasoline Dragline Operator Name Role Phone Asad Victor MD Primary Care Provider + [phone] Encounter Details Date Type Department Care Team (Latest Contact Info) Description 10/11/2024 10:15 AM EDT Pre-Admission Testing [facility]op [facility] [address] [place] [phone] Preop testing (Primary Dx) Anesthesia Record Procedure [...] Hand; Site Prep: Chlorhexidine ; Local Anesth: [place]; Technique: Anatomical landmarks; Inserted by: CHRISTIAN Acuna; [...] by Jenna Lopez CRNA 10/17/24 1311 by Jenna Lopez CRNA Urethral Catheter Placement Date: 09/25 [...] G; Orientation: Right; Location: Axillary; Inserted by: FIBER ANALYST; Securement: Sutured; Patient Tolerance: Tolerated well; Removal [...] drink first t dino in the morning (EYE-APPLIANCE TECHNICIAN) to steady your nerves or to get [...] T2DM, HLD, HTN, RLS who presented to [facility] with a large left common [...] note 09/25/24 (media) + CAD s/p multiple SC's and 3V CABG 02/2019, 2 stents prior to CABG Atrial Fibrillation with RVR s/p CABG + carotid artery disease s/p R CEA 2016 + 3rd degree AV block LABOR RELATIONS MANAGER-P placed 08/2023 for Wenkeback with 11 sec pause + HLD + HTN - controlled + PAD 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 S/P intravascular lithotripsy of left common and external iliac artery with 2 continuous balloon mounted bare metal stents 09/12/24 on Xarelto and ASA + WILHELM occ, low energy for > year - had work-up recently in [place] (will get records) + peripheral edema LLE [...] ENDARTERECTOMY N/A 2017 Endarterectomy Carotid Artery from [facility] CORONARY ANGIOPLASTY Left Coronary Angiography With Concomitant Left Heart Catheterization from [facility] CORONARY ARTERY BYPASS GRAFT N/A 2018 3V ELBOW SURGERY Right OTHER SURGICAL HISTORY N/A Reported Prior Surgical / Procedural History from [facility] [5] No Known Allergies [6] Current Outpatient [...] card, photo ID, along with power of patent attorney, guardianship or advanced directives if applicable Do [...] Description 11/26/2024 2:00 PM EDT Hospital Encounter [facility] Lab [address] [place] [address] 11/26/2024 2:30 PM EDT Hospital Encounter [facility] [address] [place] [address] 11/26/2024 3:20 PM EDT Office Visit [facility] [address] [place] [address] Elisabet Schuster PA [address] [place] [address] 11/29/2024 2:30 PM EDT Office Visit [facility] [address] [place] [address] Oscar Appiah MD [address] [facility] [address] [place] [address] documented as of this encounter [...] Modality Other Narrative 10/17/2024 9:50 AM EDT [facility]: Pre-operative CIED Report Assessment and Sara-Procedural Reommendations: Name: Mono Bobby Date: 10/17/2024 : 1960 Age: 64 y.o. Patient has a Victims Advocate Clerk/Specialist: Berger LABOR RELATIONS MANAGER-PM Remaining battery longevity adequate. Lead integrity test [...] recommendations. Supporting reports can be found in [employer] file. us Emelina DOSHI CV IMPLANTABLE CARDIAC [...] documented as of this encounter Care Teams Gasoline Dragline Operator Relationship Specialty Start Date End Date Asad Victor MD [address] [place] [address] PCP - General 10/07/22 documented as of this encounter
--- OUTSIDE RECORDS SUMMARY | 2024-10-16 14:45 | XMS_ITS | Encounter Summary ---
Author Organization Healthcare Address [address] [place] [address] Care Team Providers Care Inspector Outside Steam Distribution Name Role Phone Asad Victor MD Primary Care Provider + [phone] Encounter Details Date Type Department Care Team (Latest Contact Info) Description 10/16/2024 2:45 PM EDT - 10/16/2024 11:59 PM EDT Hospital Encounter Cardiac Imaging [address] [place] [address] Discharge Disposition: Home or Self Care Social [...] drink first t dino in the morning (EYE-DIGITAL ACCOUNT SUPERVISOR) to steady your nerves or to [...] Description 11/26/2024 2:00 PM EDT Hospital Encounter [facility] [address] [place] [address] 11/26/2024 2:30 PM EDT Hospital Encounter [facility] [address] [place] [address] 11/26/2024 3:20 PM EDT Office Visit [facility] [address] [place] [address] Elisabet Schuster, GLENDA [address] [facility] [address] [place] [address] 11/29/2024 2:30 PM EDT Office Visit [place] [address] [place] [address] Oscar Appiah MD [address] [facility] [address] [place] [address] documented as of this encounter Goals Goal [...] Modality Other Narrative 10/17/2024 9:50 AM EDT [facility]: Pre-operative CIED Report Assessment and Sara-Procedural Reommendations: Name: Mono Bobby Date: 10/17/2024 : 1960 Age: 64 y.o. Patient has a Ammonia Distiller: Berger AUTOMOTIVE MECHANICAL ENGINEER-PM Remaining battery longevity adequate. Lead integrity [...] recommendations. Supporting reports can be found in [employer] media file. 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
--- OUTSIDE RECORDS SUMMARY | 2024-10-17 06:21 | XMS_ITS | Encounter Summary ---
Author Organization [facility] Address [address] [id number] Care Team Providers Care Safety Deposit Boxes Custodian Name Role Phone Asad Victor MD Primary Care Provider [phone] Reason for Referral * Imaging (Routine) - Authorized Specialty Diagnoses / Procedures Referred By Susan t Referred To Contact Cardiology Diagnoses Critical limb ischemia of left lower extremity Pseudoaneurysm of left femoral artery (CMS/HCC) Procedures VAS US Arterial Duplex Lower Extremity Unilateral Left Terrell Gautam MD [address] [address] Phone: tel: fax: Referral ID Status Reason Start Date Expiration Date Visits Requested Visits Authorized [id number] Authorized Perform Procedure 10/19/2024 04/20/2026 1 1 * Imaging (Routine) - Authorized Specialty Diagnoses / Procedures Referred By Contac t Referred To Contact Cardiology Diagnoses Critical limb ischemia of left lower extremity Pseudoaneurysm of left femoral artery (CMS/HCC) Procedures VAS Ankle Brachial Index - Segmental Terrell Gautam MD [id number] [place] [address] Phone: tel: fax: Referral ID Status Reason Start Date Expiration Date Visits Requested Visits Authorized [id number] Authorized Perform Procedure 10/19/2024 04/20/2026 1 1 * Consultation (Routine) - Authorized Specialty Diagnoses / Procedures Referred By Contact Referred To Contact Vascular Surgery / [facility] Diagnoses Critical limb ischemia of left lower extremity Pseudoaneurysm of left femoral artery (CMS/HCC) Terrell Gautam MD [address] [place] [address] Phone: tel:[phone] fax:[phone] [facility] [address] [place] [address] 5th Floor Wing [address] [place] [address] Phone: tel: fax: Referral ID Status Reason Start Date Expiration Date Visits Requested Visits Authorized [id number] Authorized Specialty Services Required 10/19/2024 04/20/2026 [address] Gautam, with SIL, arterial duplex Reason for Visit * Auth/Cert (Routine) Specialty Diagnoses / Procedures Referred By Susan t Referred To Contact Diagnoses Critical limb ischemia of left lower extremity Critical limb ischemia of left lower extremity [I70.222] Procedures HI VEIN BYPASS GRAFT,FEM-POP CREATION, BYPASS, ARTERIAL, FEMORAL TO POPLITEAL Terrell Gautam MD [address] [place] [address] Phone: tel: fax: [facility] A OPERATING ROOM [address] [place] [address] Phone: tel: Referral ID Status Reason Start Date Expiration Date Visits Re quested Visits Authorized [id number] 1 1 Encounter Details Date Type Department Care Team (Latest Contact Info) Description 10/17/2024 6:21 AM EDT - 10/19/2024 12:39 PM EDT Hospital Encounter [facility] H Inpatient [address] [place] [phone] Terrell Gautam MD [address] [place] [phone] Pseudoaneurysm of left femoral artery (CMS/HCC) [...] any time in the past 12 m [facility], were you homeless or living in a residential (including now)? No 10/18/2024 CAGE ASSESSMENT Answer [...] drink first t dino in the morning (EYE-WHITEPRINTING MACHINE OPERATOR) to steady your nerves or to get rid of a hangover? 0 10/18/2021 CAGE Questionnaire Score 0 022 Utilities Answer Date Recorded In the past 12 months has th [employer], gas, oil, or water [employer] threatened to shut off services in your [...] provided Taken 10/17/20242107 by Jourdan Grimes II foxpro developer Review/Management: medications reviewed Problem: Skin Injury Risk [...] Chow Outcome: Met 10/19/2024 1048 by Keyla hCow Outcome: Ongoing, Progressing Goal: Blood Glucose Level [...] Ongoing, Progressing Intervention: Promote Activity and Functional Henderson Flowsheets (Taken 10/19/2024 1048) Self-Care Promotion: BADL personal objects within reach meal set-up provided * Yuni Ramires - Keyla Chow - 10/19/2024 11:45 AM EDT Images from the original note were not included. [id number] After Peripheral Artery Bypass Surgery: In the [...] home. Last Reviewed Date: 2023 00:00:00 ?? [id number] The txtr. All rights reserved. This information is not intended as a substitute for professional medical care. Always follow your healthcare professional's instructions. * Progress Notes - Emelina Friend - 10/19/2024 11:44 AM EDT Case Management Adult Progress Note Bev Bobby 64 y.o. male CSN: [id number] Admission: 10/17/2024 6:21 AM Primary Problem: Critical [...] if any other needs arise. Emelina Friend QM NURSE, FINANCIAL REPRESENTATIVE Social Work Case Management * Yuni OviJOSE MANUEL Chow Keyla - 10/19/2024 11:44 AM EDT Images from the original note were not included. [id number] Peripheral Artery Disease (PAD) Peripheral artery disease [...] cause. Last Reviewed Date: 2024 00:00:00 ?? [id number] The txtr. All rights reserved. This information is not intended as a substitute for professional medical care. Always follow your healthcare professional's instructions. * Yuni DiorNAVYA - Keyla Chow - 10/19/2024 11:44 AM EDT Images from the original note were not included. [id number] Leg Artery Emergencies: Critical Limb Ischemia (CLI) [...] appointments. Last Reviewed Date: 2023 00:00:00 ?? 1216-6085 The txtr. All rights reserved. This information is not intended as a substitute for professional medical care. Always follow your healthcare professional's instructions. * Discharge Summary - Dandy Baltazar MD - 10/19/2024 11:31 AM EDT Hospitalization Admit Date/Time: 10/17/2024 6:21 AM Admitting Attending: Terrell Gautam Discharge Date: 10/19/24 Discharge Attending Physician: Nirmal Cueto MD PCP name and Address: Asad Victor MD (Inactive) [address] [place] [address] / [facility] [place] [address] Referring provider name and address: Timothy Maruqes PA [address] [place] [address] Chief Concern, Brief History of Present Illness, and Hospital Course Bev Bobby is an 64 y.o. 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 He [...] Your Medications These medications were sent to [facility] - [place], [place] - [address], [facility] [address] acetaminophen 500 MG tablet clopidogrel 75 MG [...] of water. 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 He [...] provided Taken 10/17/20242107 by Jourdan Grimes II, foxpro developer Review/Management: medications reviewed Problem: Skin Injury Risk [...] Ongoing, Progressing Intervention: Promote Activity and Functional Henderson Flowsheets (Taken 10/19/2024 1048) Self-Care Promotion: BADL [...] evaluation. PARTICIPANTS IN CARE Visitors Present No Roving Sizer (if applicable) PRESENTATION Oxygen Oxygen Therapy: None [...] Level of Mobility Ambulatory- household only Mobility Henderson Independent gait with device (rollator) History of [...] numbness in rodney) BED MOBILITY Level of Henderson Physical/Non- physical Assist Adaptive Equipment Utilized Rolling/ Turning Scooting/ Bridging Modified independence (anteriorly to EOB) Bed rails Supine to Sit Modified Henderson (to the right) (HOB flat) Bed rails Sit to Supine Interventions HOB flat to simulate home environment TRANSFERS Level of Henderson Physical/Non- physical Assist Adaptive Equipment Utilized Sit [...] stable surfaces during transitions. AMBULATION Level of Henderson Distance Adaptive Equipment Utilized Ambulation Standby assist, [...] Posture: Forward head, Rounded shoulders Level of Henderson Balance Support Interventions Static Sit Independent Right [...] 3-5 steps with a railing?: A little [facility] 6-Clicks Mobility Assessment Total : 22 [...] evaluation/session. Participants in Care Family/Caregiver Present: No Roving Sizer: Not Applicable Presentation Oxygen Therapy: None (Room [...] Level of Mobility: Ambulatory- household only Mobility Henderson: Independent gait with device (rollator) History of [...] Mobility Bed Mobility Exam: Scooting/Bridging Level of Henderson: Modified independence (anteriorly to EOB) Assistive Device: Bed rails Bed Mobility Exam: Supine to Sit Level of Henderson: Modified Henderson (to the right) Physical/Nonphysical Assist: (HOB flat) Assistive Device: Bed rails Transfers Transfer Exam: Sit to stand Level of Henderson: Stand-by assist Physical/Nonphysical Assist: Supervision, Verbal Cues, Minimal cues Assistive Device: Walker, rolling Transfer Exam: Stand to Sit Level of Henderson: Stand-by assist Physical/Nonphysical Assist: Supervision, Verbal Cues, [...] regarding toileting at this time. Standardized Assessments [facility] 6-Click Daily Activities Help from Other: Don/Doff Regular Lower Body Clothings: None Help From Other: Bathing: Little Help From Other: Toileting: None Help From Other: Don/Doff Upper Body Clothings: None Help From Other: Grooming: None Help From Other: Eating Meals: None [facility] 6 Click - Daily Activities Score: 23/[address] [facility] Scoring Interpretation: Scores greater than 20.5 [...] Note Bev Bobby 64 y.o. male CSN: [id number] Admission: 10/17/2024 6:21 AM Primary Problem: Critical limb ischemia of left lower extremity Cabinet Abrasive Sandblaster reviewed chart and spoke with patient to complete this Initial Case Management Assessment. PCP: Asad Victor MD (Inactive) - Dr. Palomo Preferred pharmacy is [facility] Emergency Contact: Extended Emergency Contact Information Primary Emergency Contact: Patti Hill Relation: Sister Roving Sizer needed? No Insurance: Primary Visit Coverage Payer Plan Sponsor Code Group Number Group Name [facility] MEDICARE [facility] MEDICARE REPLACEMENT [id number] Primary Visit Coverage Subscriber Subscriber ID Subscriber Name Subscriber N Subscriber Address [id number] BEV BOBBY [id number] [place] [address] Secondary Visit Coverage Payer Plan Sponsor Code Group Number Group Name [facility] MEDICAID [facility] Secondary Visit Coverage Subscriber Subscriber ID Subscriber Name Subscriber N Subscriber Address [id number] BEV BOBBY [id number] [place] [address] Patient information: Primary Caregiver: Self Daily Living Activities: Functional Status: Independent Living Arrangements: Alone Type of Residence: Private residence, Single Level [address] [place] [address] Current DME: Equipment Currently Used at Home: walker, rollator Income Information: Income Source: Retired Income/Expense Information: Income meets expenses Current Resources Utilized: Food [employer] Housing Circumstances-Z Codes: Housing Circumstances (select all [...] Dialysis Services: None. Living Will/Advance Directive/Power of Health And Safety Representative /Guardian: Denied. Additional Comments: Patient is not medically ready for discharge. SW will continue to follow. Mariia Macedo FINANCIAL REPRESENTATIVE * Care Plan - Emilia Alonso RN [...] from the original note were not included. [facility] Department of Surgery Division of Vascular [...] Agree with above assessment and evaluation from resident/TOURIST INFORMATION OFFICER. * Op Note - Terrell Gautam MD - 10/17/2024 8:52 AM EDT Operative Note Date: 10/17/24 Location: [facility] Name: Bev Bobby, : 1960, Diagnoses: Pre-op Diagnosis Critical limb ischemia of left lower extremity Common femoral artery pseudoaneurysm Post-op Diagnosis Critical limb ischemia of left lower extremity Common femoral artery pseudoaneurysm Procedure(s): Left common/superficial/profunda femoral thromboendarterectomy with bovine patch repair Left external iliac artery/LEASE ATTENDANT stent Attending Surgeon(s): * Terrell Gautam - Primary Commercial Lines Account Assistant(s): * Luna Beckett MD - Resident - [...] Necessity Reasons Recent surgery contiguous with urinary tract/NETWORK LIAISON/colorectal 10/17/24 190 Output (mL) 50 mL 10/18/24 08 Implants Type Name Action Serial No. VASCUGUARD 8 X 8 - [id number] Implanted STENT ENDOPROSTHESIS VIABAHN 9FR [id number] - [id number] Implanted [id number] Specimen: Specimens ID Source Frozen? 1 Other [...] and distal control. We then proceeded with efgrr-kdr-mnlr exposure of the popliteal artery. A medial [...] balloon dilated thestent with a 9 mm [place]. We closed the arteriotomy with a single [...] 10/17/2024 8:52 AM EDT Date: 10/17/24 Location: [facility] Name: Bev Perez Kanu, : 1960, Diagnoses: Pre-op Diagnosis Critical limb ischemia of left lower extremity Common femoral artery pseudoaneurysm Post-op Diagnosis Critical limb ischemia of left lower extremity Common femoral artery pseudoaneurysm Procedure(s): Left common/superficial/profunda femoral thromboendarterectomy with bovine patch repair Left external iliac artery/LEASE ATTENDANT stent Attending Surgeon(s): * Terrell Gautam - Primary Commercial Lines Account Assistant(s): * Luna Beckett MD - Resident - Assisting * Dandy Baltazar MD - Fellow Anesthesia: General ASA: III Blood Administration: Blood Product Administration History None Estimated Blood Loss: 300 mL Drains: Urethral Catheter Temperature probe 16 Fr. (Active) Implants Type Name Action Serial No. VASCUGUARD 8 X 8 - [id number] Implanted STENT ENDOPROSTHESIS VIABAHN 9FR [id number] - [id number] Implanted [id number] Specimen: Specimens ID Source Frozen? 1 Other [...] issues. 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 He previouslyunderwent thrombin injection. He reports pain in his calves. He presents today for scheduled left lower extremity femoral to iwvvp-jns-mkgn popliteal bypass. Planned likely use PTFE. He [...] 16. Results Review {Vanishing Link Review Results :[id number] I have reviewed the latest lab and imaging results. Assessment & Plan Critical limb ischemia of left lower extremity Proceed with scheduled surgery left lower extremity femoral to jifxh-mpx-jfpn popliteal artery bypass graft. Extensive discussion had [...] Description 11/26/2024 2:00 PM EDT Hospital Encounter [facility] [address] [place] [address] 11/26/2024 2:30 PM EDT Hospital Encounter [facility] [address] [place] [address] 11/26/2024 3:20 PM EDT Office Visit [facility] [address] Floor [address] [place] [address] Elisabet Schuster, GLENDA [address] [facility] [address] [place] [address] 11/29/2024 2:30 PM EDT Office Visit [facility] [address] [place] [phone] Oscar Appiah MD [address] [facility] [address] [place] [address] Pending Results Name Type Priority Associated Diagnoses [...] PREPARE RBC STAT 10/17/2024 8:06 AM EDT HI VEIN BYPASS GRAFT,FEM-POP 10/17/2024 7:38 AM EDT [...] Comment 10/19/2024 11:42 AM EDT HEALTHCARE LAB Client Director ID KamranJob 10/20/19 11:42 AM EDT HEALTHCARE LAB Device ID [id number] 10/19/2024 11:42 AM EDT [facility] Specimen Type POC Capillary 10/19/2024 11:42 AM EDT [facility] Blood Capillary blood specimen / Unknown 10/19/2024 11:40 AM EDT 10/19/2024 11:42 AM EDT Terrell Gautam MD LAB POINT OF CARE TE ST DOCKED DEVICE UNSOLICITED RESULTS Final Result Performing Organization Address City/State/[facility] Co de Phone Number HEALTHCARE LAB [address] [place] [address] * (ABNORMAL) Protime-INR (10/19/2024 8:25 AM EDT) Prothrombin Time 17.5(H) 12.0 - 14.3 sec LAB COAGULATION METHOD 10/19/2024 9:25 AM EDT [facility] INR 1.4(H) 0.9 - 1.1 LAB COAGULATION METHOD 10/19/2024 9:25 AM EDT [facility] Blood Venous blood specimen / Unknown Venipuncture / Unknown 10/19/2024 8:25 AM EDT 10/19/2024 8:43 AM EDT Narrative [facility] - 10/19/2024 9:25 AM [...] of recurrent VT INR 2.5 to 3.5 Nirmal Cueto MD LAB BLOOD ORDERAB[place] [address] * (ABNORMAL) Phosphorus (10/19/2024 8:25 AM EDT) Phosphorus, Plasma 2.2(L) 2.5 - 4.5 mg/dL 10/19/2024 9:12 AM EDT [facility] Blood Venous blood specimen / Unknown Venipuncture / Unknown 10/19/2024 8:25 AM EDT 10/19/2024 8:43 AM EDT Nirmal Cueto MD LAB BLOOD ORDERABLES Final Result Performing Organization Address City/[facility]/ZIP Co de Phone Number [facility] [address] [place] [address] * Magnesium (10/19/2024 8:25 AM EDT) Magnesium, Plasma 2.1 1.9 - 2.4 mg/dL 10/19/2024 9:12 AM EDT [facility] Blood Venous blood specimen / Unknown Venipuncture / Unknown 10/19/2024 8:25 AM EDT 10/19/2024 8:43 AM EDT Nirmal Cueto MD LAB BLOOD ORDERABLES Final Result Performing Organization Address City/[facility]/ZIP Co de Phone Number [facility] [address] [place] [address] * (ABNORMAL) Basic metabolic panel (10/19/2024 8:25 AM EDT) Glucose, Plasma 191(H) 74 - 99 mg/dL 10/19/2024 9:12 AM EDT [facility] BUN, Plasma 18 8 - 23 mg/dL 10/19/2024 9:12 AM EDT [facility] Creatinine, Plasma 0.76 0.70 - 1.20 mg/dL 10/19/2024 9:12 AM EDT [facility] BUN/Creatinine Ratio 24 10/19/2024 9:12 AM EDT [facility] Sodium, Plasma 135(L) 136 - 145 mmol/L 10/19/2024 9:12 AM EDT [facility] Potassium, Plasma 4.1 3.6 - 4.9 mmol/L 10/19/2024 9:12 AM EDT [facility] Chloride, Plasma 104 97 - 107 mmol/L 10/19/2024 9:12 AM EDT [facility] CO2, Plasma 22 22 - 29 mmol/L 10/19/2024 9:12 AM EDT [facility] Anion Gap 9 6 - 16 mmol/L 10/19/2024 9:12 AM EDT [facility] Total Calcium, Plasma 8.4(L) 8.9 - 10.2 mg/dL 10/19/2024 9:12 AM EDT [facility] eGFRcr 99.7 mL/min/1.7 3m*2 10/19/2024 9:12 AM EDT [facility] Comment:Reported eGFRcr in m L/min/1.73m2 is based the CKD-EPI 2020 equation that does not use a race coefficient. Blood Venous blood specimen / Unknown Venipuncture / Unknown 10/19/2024 8:25 AM EDT 10/19/2024 8:43 AM EDT us Nirmal Cueto MD LAB BLOOD ORDERABLES Final Result [facility] [address] [place] [address] * (ABNORMAL) CBC W/O Differential (10/19/2024 8:25 AM EDT) WBC Count 14.10(H) 3.70 - 10.30 10*3/uL LAB HEMATOLOGY METHOD 10/19/2024 8:52 AM EDT [facility] RBC Count 2.61(L) 4.60 - 6.10 10*6/uL LAB HEMATOLOGY METHOD 10/19/2024 8:52 AM EDT [facility] HGB 8.0(L) 13.7 - 17.5 g/dL LAB HEMATOLOGY METHOD 10/19/2024 8:52 AM EDT [facility] HCT 24.3(L) 40.0 - 51.0 % LAB HEMATOLOGY METHOD 10/19/2024 8:52 AM EDT [facility] Platelet Count 318 155 - 369 10*3/uL LAB HEMATOLOGY METHOD 10/19/2024 8:52 AM EDT [facility] MCV 93 79 - 98 fL LAB HEMATOLOGY METHOD 10/19/2024 8:52 AM EDT [facility] MCH 30.7 26.0 - 32.0 pg LAB HEMATOLOGY METHOD 10/19/2024 8:52 AM EDT [facility] MCHC 32.9 30.7 - 35.5 g/dL LAB HEMATOLOGY METHOD 10/19/2024 8:52 AM EDT [facility] RDW 13.4 11.5 - 14.5 % LAB HEMATOLOGY METHOD 10/19/2024 8:52 AM EDT [facility] MPV 9.6 8.8 - 12.5 fL LAB HEMATOLOGY METHOD 10/19/2024 8:52 AM EDT [facility] nRBC 0.0 <=0.0 per 100 WBCs LAB HEMATOLOGY METHOD 10/19/2024 8:52 AM EDT [facility] Blood Venous blood specimen / Unknown Venipuncture / Unknown 10/19/2024 8:25 AM EDT 10/19/2024 8:44 AM EDT us Nirmal Cueto MD LAB BLOOD ORDERABLES Final Result [facility] [address] [place] [address] * (ABNORMAL) POCT glucose meter (10/19/2024 7:35 AM EDT) [facility] POCT Glucose 187(H) 74 - 99 [...] Comment 10/19/2024 7:37 AM EDT HEALTHCARE LAB Client Director ID Job Andrew 10/20/19 7:37 AM EDT HEALTHCARE LAB Device ID [id number] 10/19/2024 7:37 AM EDT [facility]ALTH[facility]ARE LAB Specimen Type POC Capillary 10/19/2024 7:37 AM EDT [facility]ALTH[facility]ARE LAB Blood Capillary blood specimen / Unknown 10/19/2024 7:35 AM EDT 10/19/2024 7:37 AM EDT us Terrell Gautam MD LAB POINT OF CARE TE ST DOCKED DEVICE UNSOLICITED RESULTS Final Result Performing Organization Address City/State/[facility] Co de Phone Number [facility] [address] [place] [address] * (ABNORMAL) POCT glucose meter (10/18/2024 7:22 PM EDT) [facility] POCT Glucose 178(H) 74 - 99 [...] 10/18/2024 7:24 PM EDT [facility] Client Director ID Jovan Mahesh 10/18/2024 7:24 PM EDT [facility] Device ID [id number] 10/18/2024 7:24 PM EDT HEALTHCARE LAB Specimen Type POC Capillary 10/18/2024 7:24 PM EDT [facility]ALTH[facility]ARE LAB Blood Capillary blood specimen / Unknown 10/18/2024 7:22 PM EDT 10/18/2024 7:24 PM EDT us Terrell Gautam MD LAB POINT OF CARE TE ST DOCKED DEVICE UNSOLICITED RESULTS Final Result Performing Organization Address City/[facility]/ZIP Co de Phone Number [facility] [address] [place] [address] * (ABNORMAL) POCT glucose meter (10/18/2024 6:07 [...] Comment 10/18/2024 6:09 PM EDT HEALTHCARE LAB Client Director ID David Parks 10/18/2024 6:09 PM EDT HEALTHCARE LAB Device ID [id number] 10/18/2024 6:09 PM EDT HEALTHCARE LAB Specimen Type POC Capillary 10/18/2024 6:09 PM EDT HEALTH[facility]ARE LAB Blood Capillary blood specimen / Unknown 10/18/2024 6:07 PM EDT 10/18/2024 6:09 PM EDT us Terrell Gautam MD LAB POINT OF CARE TE ST DOCKED DEVICE UNSOLICITED RESULTS Final Result [facility] [address] [place] [address] * (ABNORMAL) POCT glucose meter (10/18/2024 11:56 [...] Comment 10/21/2024 7:42 AM EDT HEALTHCARE LAB Client Director ID Venessa Marcano 10/21/2024 7:42 AM EDT [facility] Device ID [id number] 10/21/2024 7:42 AM EDT [facility] Specimen Type POC Capillary 10/21/2024 7:42 AM EDT HEALTHCARE LAB Blood Capillary blood specimen / Unknown 10/18/2024 11:56 AM EDT 10/21/2024 7:42 AM EDT us Terrell Gautam MD LAB POINT OF CARE TE ST DOCKED DEVICE UNSOLICITED RESULTS Final Result Performing Organization Address City/State/[facility] Co de Phone Number HEALTHCARE LAB [address] [place] [address] * (ABNORMAL) POCT glucose meter (10/18/2024 9:24 [...] 10/21/2024 7:42 AM EDT [facility] Client Director ID Emilia Alonso 7:42 AM EDT [facility] Device ID [id number] 10/21/2024 7:42 AM EDT HEALTHCARE LAB Specimen Type POC Venous 10/21/2024 7:42 AM EDT HEALTH[facility]ARE LAB Blood Venous blood specimen / Unknown 10/18/2024 9:24 AM EDT 10/21/2024 7:42 AM EDT us Terrell Gautam MD LAB POINT OF CARE TE ST DOCKED DEVICE UNSOLICITED RESULTS Final Result [facility] [address] [place] [address] * (ABNORMAL) POCT glucose meter (10/18/2024 7:36 AM EDT) Pathologist [facility] POCT Glucose 215(H) 74 - 99 [...] for testing. Comment 10/18/2024 7:38 AM EDT [facility] Client Director ID Kizzy Godfrey 025 7:38 AM EDT HEALTHCARE LAB Device ID [id number] 10/18/2024 7:38 AM EDT [facility] Specimen Type POC Capillary 10/18/2024 7:38 AM EDT [facility] Blood Capillary blood specimen / Unknown 10/18/2024 7:36 AM EDT 10/18/2024 7:38 AM EDT us Terrell Gautam MD LAB POINT OF CARE TE ST DOCKED DEVICE UNSOLICITED RESULTS Final Result [facility] [address] [place] [address] * (ABNORMAL) CBC (10/18/2024 2:09 AM EDT) Pathologist [facility] WBC Count 16.71(H) 3.70 - 10.30 10*3/uL LAB HEMATOLOGY METHOD 10/18/2024 2:33 AM EDT [facility] RBC Count 2.78(L) 4.60 - 6.10 10*6/uL LAB HEMATOLOGY METHOD 10/18/2024 2:33 AM EDT [facility] HGB 8.5(L) 13.7 - 17.5 g/dL LAB HEMATOLOGY METHOD 10/18/2024 2:33 AM EDT [facility] HCT 25.7(L) 40.0 - 51.0 % LAB HEMATOLOGY METHOD 10/18/2024 2:33 AM EDT [facility] Platelet Count 324 155 - 369 10*3/uL LAB HEMATOLOGY METHOD 10/18/2024 2:33 AM EDT [facility] MCV 92 79 - 98 fL LAB HEMATOLOGY METHOD 10/18/2024 2:33 AM EDT [facility] MCH 30.6 26.0 - 32.0 pg LAB HEMATOLOGY METHOD 10/18/2024 2:33 AM EDT [facility] MCHC 33.1 30.7 - 35.5 g/dL LAB HEMATOLOGY METHOD 10/18/2024 2:33 AM EDT [facility] RDW 13.3 11.5 - 14.5 % LAB HEMATOLOGY METHOD 10/18/2024 2:33 AM EDT [facility] MPV 9.4 8.8 - 12.5 fL LAB HEMATOLOGY METHOD 10/18/2024 2:33 AM EDT [facility] nRBC 0.0 <=0.0 per 100 WBCs LAB HEMATOLOGY METHOD 10/18/2024 2:33 AM EDT [facility] Blood Venous blood specimen / Unknown Venipuncture / Unknown 10/18/2024 2:09 AM EDT 10/18/2024 2:25 AM EDT us Nirmal Cueto MD LAB BLOOD ORDERABLES Final Result [facility] [address] [place] [address] * (ABNORMAL) Basic metabolic panel (10/18/2024 2:09 AM EDT) Glucose, Plasma 206(H) 74 - 99 mg/dL 10/18/2024 2:53 AM EDT [facility] BUN, Plasma 24(H) 8 - 23 mg/dL 10/18/2024 2:53 AM EDT [facility] Creatinine, Plasma 1.17 0.70 - 1.20 mg/dL 10/18/2024 2:53 AM EDT [facility] BUN/Creatinine Ratio 21 10/18/2024 2:53 AM EDT [facility] Sodium, Plasma 136 136 - 145 mmol/L 10/18/2024 2:53 AM EDT [facility] Potassium, Plasma 4.8 3.6 - 4.9 mmol/L 10/18/2024 2:53 AM EDT [facility] Chloride, Plasma 104 97 - 107 mmol/L 10/18/2024 2:53 AM EDT [facility] CO2, Plasma 22 22 - 29 mmol/L 10/18/2024 2:53 AM EDT [facility] Anion Gap 10 6 - 16 mmol/L 10/18/2024 2:53 AM EDT [facility] Total Calcium, Plasma 8.5(L) 8.9 - 10.2 mg/dL 10/18/2024 2:53 AM EDT [facility] eGFRcr 69.2 mL/min/1.7 3m*2 10/18/2024 2:53 AM EDT [facility] Comment:Reported eGFRcr in m L/min/1.73m2 is based the CKD-EPI 2020 equation that does not use a race coefficient. Blood Venous blood specimen / Unknown Venipuncture / Unknown 10/18/2024 2:09 AM EDT 10/18/2024 2:25 AM EDT Nirmal Cueto MD LAB BLOOD ORDERABLES Final Result [facility] [address] [place] [address] * (ABNORMAL) Magnesium (10/18/2024 2:09 AM EDT) Magnesium, Plasma 1.8(L) 1.9 - 2.4 mg/dL 10/18/2024 2:53 AM EDT [facility] Blood Venous blood specimen / Unknown Venipuncture / Unknown 10/18/2024 2:09 AM EDT 10/18/2024 2:25 AM EDT us Nirmal Cueto MD LAB BLOOD ORDERABLES Final Result [facility] [address] [place] [address] * Phosphorus (10/18/2024 2:09 AM EDT) Phosphorus, Plasma 3.7 2.5 - 4.5 mg/dL 10/18/2024 2:53 AM EDT [facility] Blood Venous blood specimen / Unknown Venipuncture / Unknown 10/18/2024 2:09 AM EDT 10/18/2024 2:25 AM EDT Nirmal Cueto MD LAB BLOOD ORDERABLES Final Result Performing Organization Address [facility] Co de Phone Number [facility] [address] [place] [address] * (ABNORMAL) Protime-INR (10/18/2024 2:09 AM EDT) Prothrombin Time 14.5(H) 12.0 - 14.3 sec LAB COAGULATION METHOD 10/18/2024 2:53 AM EDT [facility] INR 1.1 0.9 - 1.1 LAB COAGULATION METHOD 10/18/2024 2:53 AM EDT [facility] Blood Venous blood specimen / Unknown Venipuncture / Unknown 10/18/2024 2:09 AM EDT 10/18/2024 2:25 AM EDT Narrative [facility] - 10/18/2024 2:53 AM [...] recurrent VT INR 2.5 to 3.5 us Nirmal Cueto MD LAB BLOOD ORDERABLES Final Result Performing Organization Address City/[facility]/ZIP Co de Phone Number [facility] [address] [place] [address] * (ABNORMAL) POCT glucose meter (10/18/2024 2:08 AM EDT) [facility] POCT Glucose 202(H) 74 - 99 [...] Comment 10/18/2024 2:10 AM EDT [facility] Client Director ID Jourdan Grimes II 10/18/2024 2:10 AM EDT [facility] LAB Device ID [id number] 10/18/2024 2:10 AM EDT [facility] Specimen Type POC Capillary 10/18/2024 2:10 AM EDT [facility] Blood Capillary blood specimen / Unknown 10/18/2024 2:08 AM EDT 10/18/2024 2:10 AM EDT us Terrell Gautam MD LAB POINT OF CARE TE ST DOCKED DEVICE UNSOLICITED RESULTS Final Result Performing Organization Address City/State/[facility] Co de Phone Number [facility] [address] [place] [address] * (ABNORMAL) POCT glucose meter (10/17/2024 10:07 PM EDT) [facility] POCT Glucose 300(H) 74 - 99 [...] Comment 10/17/2024 10:10 PM EDT [facility] Client Director ID Jourdan Grimes II 10/17/2024 10:10 PM EDT [facility] Device ID [id number] 10/17/2024 10:10 PM EDT [facility] Specimen Type POC Capillary 10/17/2024 10:10 PM EDT [facility] Blood Capillary blood specimen / Unknown 10/17/2024 10:07 PM EDT 10/17/2024 10:10 PM EDT Terrell Gautam MD LAB POINT OF CARE TE ST DOCKED DEVICE UNSOLICITED RESULTS Final Result Performing Organization Address City/[facility] Co de Phone Number [facility] [address] [place] [address] * (ABNORMAL) POCT glucose meter (10/17/2024 8:07 [...] Comment 10/17/2024 8:10 PM EDT [facility] Client Director ID Jourdan Grimes II 10/17/2024 8:10 PM EDT [facility] Device ID [id number] 10/17/2024 8:10 PM EDT [facility] Specimen Type POC Capillary 10/17/2024 8:10 PM EDT [facility] Blood Capillary blood specimen / Unknown 10/17/2024 8:07 PM EDT 10/17/2024 8:10 PM EDT us Terrell Gautam MD LAB POINT OF CARE TE ST DOCKED DEVICE UNSOLICITED RESULTS Final Result Performing Organization Address City/[facility]/ZIP Co de Phone Number [facility] [address] [place] [address] * (ABNORMAL) POCT glucose meter (10/17/2024 4:01 [...] Comment 10/17/2024 4:03 PM EDT [facility] Client Director ID Keisha Waller 10/17/2024 4:03 PM EDT [facility] Device ID [id number] 10/17/2024 4:03 PM EDT [facility] Specimen Type POC Capillary 10/17/2024 4:03 PM EDT [facility] Blood Capillary blood specimen / Unknown 10/17/2024 4:01 PM EDT 10/17/2024 4:03 PM EDT us Terrell Gautam MD LAB POINT OF CARE TE ST DOCKED DEVICE UNSOLICITED RESULTS Final Result Performing Organization Address City/State/[facility] Co de Phone Number [facility] [address] [place] [address] * (ABNORMAL) POCT glucose meter (10/17/2024 1:25 PM EDT) [facility] POCT Glucose 225(H) 74 - 99 mg/dL [...] Comment 10/17/2024 1:27 PM EDT [facility] Client Director ID Kizzy Godfrey 025 1:27 PM EDT [facility] Device ID [id number] 10/17/2024 1:27 PM EDT [facility] Specimen Type POC Capillary 10/17/2024 1:27 PM EDT [facility] Blood Capillary blood specimen / Unknown 10/17/2024 1:25 PM EDT 10/17/2024 1:27 PM EDT us Terrell Gautam MD LAB POINT OF CARE TE ST DOCKED DEVICE UNSOLICITED RESULTS Final Result Performing Organization Address City/[facility] Co de Phone Number [facility] [address] [place] [address] * [place] Less than 1 Hour Intraoperative (10/17/2024 1:18 PM EDT) Narrative IMAGING - 10/17/2024 2:05 PM EDT Images were obtained for surgical purposes. See Terrell Gautam's surgical note in the patient's chart for the findings. Terrell Gautam MD IMG FLUOROSCOPY PROCEDURES Fi nal Result Performing Organization Address [facility] Co de Phone Number IMAGING * POCT ACT (10/17/2024 12:23 PM EDT) ACT+ (HIGH RANGE) 211 68 - 600 Seconds 10/29/2024 7:28 AM EDT [facility] Client Director ID Donna Mcmillan 10/29/2024 7:28 AM EDT [facility] ACT Device ID [id number] 10/29/2024 7:28 AM EDT [facility] Comment 10/29/2024 7:28 AM EDT [facility] Comment: ACT performed by [...] UNSOLICITED RESULTS Final Result Performing Organization Address [facility] Co de Phone Number [facility] [address] [place], [place] [id number] [place] [address] LAB [address] [place] [address] * (ABNORMAL) Blood gas, arterial (10/17/2024 11:48 AM EDT) pH, Arterial 7.34 7.31 - 7.42 LAB HEMATOLOGY METHOD 10/17/2024 11:54 AM EDT [facility] pCO2, Arterial 41 32 - 45 mmHg LAB HEMATOLOGY METHOD 10/17/2024 11:54 AM EDT [facility] pO2, Arterial 202 >80 mmHg LAB HEMATOLOGY METHOD 10/17/2024 11:54 AM EDT [facility] SO2, Measured, Arterial 100(H) 94 - 98 % LAB HEMATOLOGY METHOD 10/17/2024 11:54 AM EDT [facility] Base Excess, Arterial -3.2(L) -2.0 - 3.0 mmol/L LAB HEMATOLOGY METHOD 10/17/2024 11:54 AM EDT [facility] Bicarbonate, Calculated, Arterial 22 22 - 26 mmol/L LAB HEMATOLOGY METHOD 10/17/2024 11:54 AM EDT [facility] Hematocrit, Whole Blood 28.6(L) 40.0 - 51.0 % LAB HEMATOLOGY METHOD 10/17/2024 11:54 AM EDT [facility] Sodium, Whole Blood 137 136 - 145 mmol/L LAB HEMATOLOGY METHOD 10/17/2024 11:54 AM EDT [facility] Potassium, Whole Blood 4.5 3.6 - 4.9 mmol/L LAB HEMATOLOGY METHOD 10/17/2024 11:54 AM EDT [facility] Chloride, Whole Blood 112(H) 97 - 107 mmol/L LAB HEMATOLOGY METHOD 10/17/2024 11:54 AM EDT [facility] Glucose, Whole Blood 201(H) 74 - 99 mg/dL LAB HEMATOLOGY METHOD 10/17/2024 11:54 AM EDT [facility] Ionized Calcium, Whole Blood 4.8 4.6 - 5.1 mg/dL LAB HEMATOLOGY METHOD 10/17/2024 11:54 AM EDT [facility] Lactate, Arterial, Whole Blood 2.3(H) 0.5 - 1.6 mmol/L LAB HEMATOLOGY METHOD 10/17/2024 11:54 AM EDT [facility] Blood Arterial blood specimen / Unknown Arterial Puncture / Unknown 10/17/2024 11:48 AM EDT 10/17/2024 11:53 AM EDT us Jenna Lopez CRNA LAB BLOOD ORDERABLES Final Re sult [facility] [address] [place] [address] * POCT ACT (10/17/2024 11:41 AM EDT) ACT+ (HIGH RANGE) 175 68 - 600 Seconds 10/29/2024 7:28 AM EDT [facility] Client Director ID Oneyda Alicea 10/29/2024 7:28 AM EDT [facility] ACT Device ID [id number] 10/29/2024 7:28 AM EDT [facility] Comment 10/29/2024 7:28 AM EDT [facility] Comment: ACT performed by [...] DEVICE UNSOLICITED RESULTS Final Result [facility] [address] LAB [address] [place] [address] * POCT ACT (10/17/2024 11:11 AM EDT) ACT+ (HIGH RANGE) 252 68 - 600 Seconds 10/29/2024 7:28 AM EDT [facility] Client Director ID Donna Mcmillan 10/29/2024 7:28 AM EDT [facility] ACT Device ID [id number] 10/29/2024 7:28 AM EDT [facility] Comment 10/29/2024 7:28 AM EDT [facility] Comment: ACT performed by [...] RESULTS Final Result [facility] [address] LAB [address] [place] [address] * (ABNORMAL) Blood gas, arterial (10/17/2024 10:46 AM EDT) pH, Arterial 7.35 7.31 - 7.42 LAB HEMATOLOGY METHOD 10/17/2024 10:56 AM EDT [facility] pCO2, Arterial 42 32 - 45 mmHg LAB HEMATOLOGY METHOD 10/17/2024 10:56 AM EDT [facility] pO2, Arterial 161 >80 mmHg LAB HEMATOLOGY METHOD 10/17/2024 10:56 AM EDT [facility] SO2, Measured, Arterial 100(H) 94 - 98 % LAB HEMATOLOGY METHOD 10/17/2024 10:56 AM EDT [facility] Base Excess, Arterial -2.2(L) -2.0 - 3.0 mmol/L LAB HEMATOLOGY METHOD 10/17/2024 10:56 AM EDT [facility] Bicarbonate, Calculated, Arterial 23 22 - 26 mmol/L LAB HEMATOLOGY METHOD 10/17/2024 10:56 AM EDT [facility] Hematocrit, Whole Blood 29.9(L) 40.0 - 51.0 % LAB HEMATOLOGY METHOD 10/17/2024 10:56 AM EDT [facility] Sodium, Whole Blood 138 136 - 145 mmol/L LAB HEMATOLOGY METHOD 10/17/2024 10:56 AM EDT [facility] Potassium, Whole Blood 4.0 3.6 - 4.9 mmol/L LAB HEMATOLOGY METHOD 10/17/2024 10:56 AM EDT [facility] Chloride, Whole Blood 110(H) 97 - 107 mmol/L LAB HEMATOLOGY METHOD 10/17/2024 10:56 AM EDT [facility] Glucose, Whole Blood 174(H) 74 - 99 mg/dL LAB HEMATOLOGY METHOD 10/17/2024 10:56 AM EDT [facility] Ionized Calcium, Whole Blood 5.1 4.6 - 5.1 mg/dL LAB HEMATOLOGY METHOD 10/17/2024 10:56 AM EDT [facility] Lactate, Arterial, Whole Blood 1.4 0.5 - 1.6 mmol/L LAB HEMATOLOGY METHOD 10/17/2024 10:56 AM EDT [facility] Blood Arterial blood specimen / Unknown Arterial Puncture / Unknown 10/17/2024 10:46 AM EDT 10/17/2024 10:54 AM EDT us Jenna Lopez CRNA LAB BLOOD ORDERABLES Final Re sult [facility] [address] [place] [address] * POCT ACT (10/17/2024 10:37 AM EDT) ACT+ (HIGH RANGE) 206 68 - 600 Seconds 10/29/2024 7:28 AM EDT [facility] Client Director ID Donna Mcmillan 10/29/2024 7:28 AM EDT [facility] ACT Device ID [id number] 10/29/2024 7:28 AM EDT [facility] Comment 10/29/2024 7:28 AM EDT [facility] Comment: ACT performed by [...] DEVICE UNSOLICITED RESULTS Final Result [facility] [address] LAB [address] [place] [address] * Surgical Pathology Exam (10/17/2024 10:27 AM EDT) Case Report Surgical Pathology Case: [id number] Authorizing Provider: Terrell Gautam MD Collected: 10/17/2024 1027 Ordering Location: [facility] Received: 10/17/2024 1325 Pathologist: Haydee Osborne MD Specimen: Other (specify site), left common femoral plaque 10/21/2024 10:16 AM EDT [facility] Final Diagnosis A. LEFT COMMON FEMORAL PLAQUE, EXCISION: - CALCIFIED PLAQUE 10/21/2024 10:16 AM EDT [facility] at 1016 EDT Clinical Information Critical limb ischemia of left lower extremity [I70.222] 10/21/2024 10:16 AM EDT [facility] Gross Description A. LEFT COMMON FEMORAL PLAQUE Received in formalin labeled l eft common femoral plaque , is one aggregate of red-gabriel hard portions of plaque measuring 3.7 x 2.5 x 0.9 cm. The specimen is serially sectioned and personnel representative sections are submitted in cassette A1. Cold Time: <1m Kenia Aceves 10/21/2024 10:16 AM EDT [facility] Note: A resident was involved in the service. I attest I examined the relevant preparations for the specimens and confirmed the diagnosis or interpretation. 10/21/2024 10:16 AM EDT [facility] Tissue Topography unknown / Unknown 10/17/2024 10:27 AM EDT 10/17/2024 1:25 PM EDT Comment:Pre-op diagnosis: Critical limb ischemia of left lower extremity [I70.222] us Terrell Gautam MD LAB PATHOLOGY ORDERABLES Gwen grimaldo Result [facility] [address] [place] [address] * POCT ACT (10/17/2024 10:03 AM EDT) ACT+ (HIGH RANGE) 244 68 - 600 Seconds 10/29/2024 7:28 AM EDT [facility] Client Director ID Donna Mcmillan 10/29/2024 7:28 AM EDT [facility] ACT Device ID [id number] 10/29/2024 7:28 AM EDT [facility] Comment 10/29/2024 7:28 AM EDT [facility] Comment: ACT performed by [...] DEVICE UNSOLICITED RESULTS Final Result [facility] [address] LAB [address] [place] [address] * (ABNORMAL) Blood gas, arterial (10/17/2024 9:45 AM EDT) pH, Arterial 7.37 7.31 - 7.42 LAB HEMATOLOGY METHOD 10/17/2024 9:55 AM EDT [facility] pCO2, Arterial 43 32 - 45 mmHg LAB HEMATOLOGY METHOD 10/17/2024 9:55 AM EDT [facility] pO2, Arterial 177 >80 mmHg LAB HEMATOLOGY METHOD 10/17/2024 9:55 AM EDT [facility] SO2, Measured, Arterial 100(H) 94 - 98 % LAB HEMATOLOGY METHOD 10/17/2024 9:55 AM EDT [facility] Base Excess, Arterial -0.5 -2.0 - 3.0 mmol/L LAB HEMATOLOGY METHOD 10/17/2024 9:55 AM EDT [facility] Bicarbonate, Calculated, Arterial 25 22 - 26 mmol/L LAB HEMATOLOGY METHOD 10/17/2024 9:55 AM EDT [facility] Hematocrit, Whole Blood 30.0(L) 40.0 - 51.0 % LAB HEMATOLOGY METHOD 10/17/2024 9:55 AM EDT [facility] Sodium, Whole Blood 137 136 - 145 mmol/L LAB HEMATOLOGY METHOD 10/17/2024 9:55 AM EDT [facility] Potassium, Whole Blood 4.3 3.6 - 4.9 mmol/L LAB HEMATOLOGY METHOD 10/17/2024 9:55 AM EDT [facility] Chloride, Whole Blood 108(H) 97 - 107 mmol/L LAB HEMATOLOGY METHOD 10/17/2024 9:55 AM EDT [facility] Glucose, Whole Blood 191(H) 74 - 99 mg/dL LAB HEMATOLOGY METHOD 10/17/2024 9:55 AM EDT [facility] Ionized Calcium, Whole Blood 5.0 4.6 - 5.1 mg/dL LAB HEMATOLOGY METHOD 10/17/2024 9:55 AM EDT [facility] Lactate, Arterial, Whole Blood 1.3 0.5 - 1.6 mmol/L LAB HEMATOLOGY METHOD 10/17/2024 9:55 AM EDT [facility] Blood Arterial blood specimen / Unknown Arterial Line / Unknown 10/17/2024 9:45 AM EDT 10/17/2024 9:52 AM EDT us Jenna Lopez [employer] INFORMATION OFFIC[employer] LAB BLOOD ORDERABLES Final Re sult [facility] [address] [place] [address] * (ABNORMAL) Blood gas, arterial (10/17/2024 8:47 AM EDT) pH, Arterial 7.37 7.31 - 7.42 LAB HEMATOLOGY METHOD 10/17/2024 8:59 AM EDT [facility] pCO2, Arterial 43 32 - 45 mmHg LAB HEMATOLOGY METHOD 10/17/2024 8:59 AM EDT [facility] pO2, Arterial 205 >80 mmHg LAB HEMATOLOGY METHOD 10/17/2024 8:59 AM EDT [facility] SO2, Measured, Arterial 100(H) 94 - 98 % LAB HEMATOLOGY METHOD 10/17/2024 8:59 AM EDT [facility] Base Excess, Arterial -0.3 -2.0 - 3.0 mmol/L LAB HEMATOLOGY METHOD 10/17/2024 8:59 AM EDT [facility] Bicarbonate, Calculated, Arterial 25 22 - 26 mmol/L LAB HEMATOLOGY METHOD 10/17/2024 8:59 AM EDT [facility] Hematocrit, Whole Blood 31.3(L) 40.0 - 51.0 % LAB HEMATOLOGY METHOD 10/17/2024 8:59 AM EDT [facility] Sodium, Whole Blood 138 136 - 145 mmol/L LAB HEMATOLOGY METHOD 10/17/2024 8:59 AM EDT [facility] Potassium, Whole Blood 4.0 3.6 - 4.9 mmol/L LAB HEMATOLOGY METHOD 10/17/2024 8:59 AM EDT [facility] Chloride, Whole Blood 108(H) 97 - 107 mmol/L LAB HEMATOLOGY METHOD 10/17/2024 8:59 AM EDT [facility] Glucose, Whole Blood 162(H) 74 - 99 mg/dL LAB HEMATOLOGY METHOD 10/17/2024 8:59 AM EDT [facility] Ionized Calcium, Whole Blood 5.2(H) 4.6 - 5.1 mg/dL LAB HEMATOLOGY METHOD 10/17/2024 8:59 AM EDT [facility] Lactate, Arterial, Whole Blood 1.7(H) 0.5 - 1.6 mmol/L LAB HEMATOLOGY METHOD 10/17/2024 8:59 AM EDT [facility] Blood Arterial blood specimen / Unknown Arterial Puncture / Unknown 10/17/2024 8:47 AM EDT 10/17/2024 8:58 AM EDT us Jenna Lopez [facility] BLOOD ORDERABLES Final Re sult [facility] [address] [place] [address] * POCT ACT (10/17/2024 8:46 AM EDT) ACT+ (HIGH RANGE) 101 68 - 600 Seconds 10/29/2024 7:28 AM EDT [facility]ALTH[facility] Client Director ID HipolitoAdaDonna Maya 10/29/2024 7:28 AM EDT [facility] ACT Device ID [id number] 10/29/2024 7:28 AM EDT [facility] Comment 10/29/2024 7:28 AM EDT [facility] Comment: ACT performed by [...] UNSOLICITED RESULTS Final Result Performing Organization Address [facility] de Phone Number [facility] [address] LAB [address] [place] [address] * Type and Screen (10/17/2024 7:19 AM [...] ORDERAB LES Final Result Performing Organization Address [facility] de Phone Number BLOOD BANK [address] [place] [address] * (ABNORMAL) POCT glucose meter (10/17/2024 6:44 AM EDT) [facility] POCT Glucose 178(H) 74 - 99 [...] 10/17/2024 6:49 AM EDT [facility] Client Director ID Hunter Burroughs 10/18/19 6:49 AM EDT [facility] Device ID [id number] 10/17/2024 6:49 AM EDT [facility] Specimen Type POC Capillary 10/17/2024 6:49 AM EDT [facility]ALTH[facility] Blood Capillary blood specimen / Unknown 10/17/2024 6:44 AM EDT 10/17/2024 6:49 AM EDT Terrell Gautam MD LAB POINT OF CARE TE ST DOCKED DEVICE UNSOLICITED RESULTS Final Result [facility] [address] [place] [address] documented in this encounter Visit Diagnoses Diagnosis [...] documented as of this encounter Care Teams Safety Deposit Boxes Custodian Relationship Specialty Start Date End Date Asad Victor MD [address] [place] [address] PCP - General 10/07/22 documented as of this encounter
--- OUTSIDE RECORDS SUMMARY | 2024-10-17 07:51 | XMS_ITS | Encounter Summary ---
Author Organization [facility] Address [address] [id number] Care Team Providers Care Container Coordinator Name Role Phone Asad Victor MD Primary Care Provider + [phone] Reason for Visit * Auth/Cert (Routine) Specialty Diagnoses / Procedures Referred By Contac t Referred To Contact Diagnoses Critical limb ischemia of left lower extremity Critical limb ischemia of left lower extremity [I70.222] Procedures IN VEIN BYPASS GRAFT,FEM-POP CREATION, BYPASS, ARTERIAL, FEMORAL TO POPLITEAL Terrell Gautam MD [address] [facility] [address] [place] [address] Phone: tel: fax: PAV A OPERATING ROOM [address] [place] [address] Phone: tel: Referral ID Status Reason Start Date Expiration Date Visits Re quested Visits Authorized [id number] 1 1 Encounter Details Date Type Department Care Team (Late st Contact Info) Description 10/17/2024 7:51 AM EDT Anesthesia Event PAV A OPERATING ROOM [address] [place] [address] Maria Fernanda Mccallum MD [address] [place] [address] Anesthesia Record Procedure Summary Procedure [...] Hand; Site Prep: Chlorhexidine ; Local Anesth: [place]; Technique: Anatomical landmarks; Inserted by: CHRISTIAN Acuna; [...] time in the past 12 [address] [facility], were you homeless or living in a [...] drink first t dino in the morning (EYE-NARROW FABRIC CALENDERER) to steady your nerves or to get [...] * Anesthesia Postprocedure Evaluation - Jenna Lopez, SECURITY ESCORT - 10/17/2024 1:29 PM EDT Patient: Mono [...] by Swetha Villareal MD Staffing Performed: ISH SECURITY ESCORT: Jenna Lopez CRNA * Anesthesia Procedure Notes - Jenna Lopez CRNA - 10/17/2024 9:00 AM EDT Associated Order(s): Airway Airway Date/Time: 10/17/2024 8:03 AM Reason: elective Airway not difficult General Information and Staff Patient location during procedure: OR SECURITY ESCORT: Jenna Lopez CRNA Performed: SECURITY ESCORT Patient Condition Indications for airway management: anesthesia [...] note 09/25/24 (media) + CAD s/p multiple ME's and 3V CABG 02/2019, 2 stents prior to CABG Atrial Fibrillation with RVR s/p CABG + carotid artery disease s/p R CEA 2016 + 3rd degree AV block STEEL CHIPPER-P placed 08/2023 for Wenkeback with 11 sec pause + HLD + HTN - controlled + 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 CORONARY ANGIOPLASTY Left Coronary Angiography With Concomitant Left Heart Catheterization from [email or web address] ??? CORONARY ARTERY BYPASS GRAFT N/A 2018 [...] Description 11/26/2024 2:00 PM EDT Hospital Encounter [facility] [address] [place] [address] 11/26/2024 2:30 PM EDT Hospital Encounter [facility] [address] [place] [address] 11/26/2024 3:20 PM EDT Office Visit [facility] [address] [place] [address] Elisabet Schuster, GLENDA [address] [facility] [address] [place] [address] 11/29/2024 2:30 PM EDT Office Visit [facility] [address] [place] [address] Oscar Appiah MD [facility] [address] [place] [address] documented as of this encounter Goals Goal [...] ANESTHESIA PLACEHOLDER Routine 10/17/2024 8:03 AM EDT IN AN ELECTIVE ENDOTRACHEAL AIRWAY Routine 10/17/2024 8:03 [...] Performed by Swetha Villareal MD Staffing Performed: SECURITY ESCORT SECURITY ESCORT: Jenna Lopez CRNA Maria Fernanda Mccallum MD ANESTHESIA ORDERABLES Edite d Result - Final * IN AN ELECTIVE ENDOTRACHEAL AIRWAY, PB ANESTHESIA PLACEHOLDER (10/17/2024 8:03 AM EDT) Narrative Jenna Lopez CRNA - 10/17/2024 8:03 AM EDT Jenna Lopez CRNA 10/17/2024 9:00 AM Airway Date/Time: 10/17/2024 8:03 AM Reason: elective Airway not difficult General Information and Staff Patient location during procedure: OR SECURITY ESCORT: Jenna Lopez CRNA Performed: ISH Patient Condition [...] Mccallum MD ANESTHESIA ORDERABLES Final Result * [facility] AN POCUS CARDIAC PROCDOC (10/17/2024 7:18 AM [...] Trace AR. The images were Saved in [employer]. The study was technically adequate. [...] documented as of this encounter Care Teams Container Coordinator Relationship Specialty Start Date End Date Asad Victor MD [address] [place] [address] PCP - General 10/07/22 documented as of this encounter
--- OUTSIDE RECORDS SUMMARY | 2024-10-17 08:00 | XMS_ITS | Encounter Summary ---
Author Organization [facility] Address [address] [place] [address] Care Team Providers Care Splicing Machine Operator Automatic Name Role Phone Asad Victor MD Primary Care Provider + [phone] Reason for Visit * Auth/Cert (Routine) Specialty Diagnoses / Procedures Referred By Contac t Referred To Contact Diagnoses Critical limb ischemia of left lower extremity Critical limb ischemia of left lower extremity [I70.222] Procedures TN VEIN BYPASS GRAFT,FEM-POP CREATION, BYPASS, ARTERIAL, FEMORAL TO POPLITEAL Terrell Gautam MD [address] [address] Phone: tel: fax: [facility] [address] [place] [address] Phone: tel: Referral ID Status Reason Start Date Expiration Date Visits Re quested Visits Authorized [id number] 1 1 Encounter Details Date Type Department Care Team (Late st Contact Info) Description 10/17/2024 8:00 AM EDT - 10/17/2024 2:50 PM EDT Surgery [facility] [address] [place] [address] Terrell Gautam MD [address] [address] CREATION, BYPASS, ARTERIAL, FEMORAL TO POPLITEAL [82929 (CPT )] Surgery Details Date/Time Status Location [...] any time in the past 12 m [facility], were you homeless or living in [...] drink first t dino in the morning (EYE-SECURITY ESCORT) to steady your nerves or to get rid of a hangover? 0 10/18/2021 CAGE Questionnaire Score 0 022 Utilities Answer Date Recorded In the past 12 months has th e [employer], gas, oil, or water [employer] threatened to shut off services in your [...] provided Taken 10/17/20242107 by Jourdan Grimes II, regional facilities manager Review/Management: medications reviewed Problem: Skin Injury Risk [...] Control and Function 10/19/2024 1145 by Keyla hCow Outcome: Met [...] Ongoing, Progressing Intervention: Promote Activity and Functional [place] Flowsheets (Taken 10/19/2024 1048) Self-Care Promotion: BADL personal objects within reach meal set-up provided * Yuni Ramires - Keyla Chow - 10/19/2024 11:45 AM EDT Images from the original note were not included. [id number] After Peripheral Artery Bypass Surgery: In the [...] home. Last Reviewed Date: 2023 00:00:00 ?? [id number] [employer]. All rights reserved. This information is not intended as a substitute for professional medical care. Always follow your healthcare professional's instructions. * Progress Notes - Emelina Friend - 10/19/2024 11:44 AM EDT Case Management Adult Progress Note Bev Bobby 64 y.o. male CSN: [id number] Admission: 10/17/2024 6:21 AM Primary Problem: Critical [...] if any other needs arise. Emelina Friend HUNTING AND FISHING GUIDE, CHILD AND ADOLESCENT THERAPIST Social Work Case Management * Yuni Ramires - Keyla Chow - 10/19/2024 11:44 AM EDT Images from the original note were not included. [id number] Peripheral Artery Disease (PAD) Peripheral artery disease [...] cause. Last Reviewed Date: 2024 00:00:00 ?? [id number] [employer]. All rights reserved. This information is not intended as a substitute for professional medical care. Always follow your healthcare professional's instructions. * Yuni Ramires - Keyla Chow - 10/19/2024 11:44 AM EDT Images from the original note were not included. [id number] Leg Artery Emergencies: Critical Limb Ischemia (CLI) [...] appointments. Last Reviewed Date: 2023 00:00:00 ?? [id number] [employer]. All rights reserved. This information is not intended as a substitute for professional medical care. Always follow your healthcare professional's instructions. * Discharge Summary - Dandy Baltazar MD - 10/19/2024 11:31 AM EDT Hospitalization Admit Date/Time: 10/17/2024 6:21 AM Admitting Attending: Terrell Gautam Discharge Date: 10/19/24 Discharge Attending Physician: Nirmal Cueto MD PCP name and Address: Asad Victor MD (Inactive) [address] [facility] [place] [address] Referring provider name and address: Timothy Marques PA [address] [place] [address] Chief Concern, Brief History of Present Illness, and Hospital Course Bev Bobby is an 64 y.o. 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 [...] Medications These medications were sent to [facility] [place], [place] - [address] [facility] [address] [facility] [address] [facility] [address] acetaminophen 500 MG tablet clopidogrel 75 MG [...] of water. 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 [...] provided Taken 10/17/20242107 by Jourdan Grimes II regional facilities manager Review/Management: medications reviewed Problem: Skin Injury Risk [...] Ongoing, Progressing Intervention: Promote Activity and Functional [place] Flowsheets (Taken 10/19/2024 1048) Self-Care Promotion: BADL [...] evaluation. PARTICIPANTS IN CARE Visitors Present No Acid Mixer (if applicable) PRESENTATION Oxygen Oxygen Therapy: None [...] Level of Mobility Ambulatory- household only Mobility Ches[place] Independent gait with device (rollator) History of [...] numbness in rodney) BED MOBILITY Level of [place] Physical/Non- physical Assist Adaptive Equipment Utilized Rolling/ Turning Scooting/ Bridging Modified independence (anteriorly to EOB) Bed rails Supine to Sit Modified Cheshire (to the right) (HOB flat) Bed rails Sit to Supine Interventions HOB flat to simulate home environment TRANSFERS Level of [place] Physical/Non- physical Assist Adaptive Equipment Utilized Sit [...] stable surfaces during transitions. AMBULATION Level of [place] Distance Adaptive Equipment Utilized Ambulation Standby assist, [...] Posture: Forward head, Rounded shoulders Level of [place] Balance Support Interventions Static Sit Independent Right [...] Assessments Standardized Assessments: AMPA 6-Clicks Mobility Assessment [facility] 6-Clicks Mobility Assessment Difficulty patient [...] 3-5 steps with a railing?: A little [facility] 6-Clicks Mobility Assessment Total : [...] evaluation/session. Participants in Care Family/Caregiver Present: No Acid Mixer: Not Applicable Presentation Oxygen Therapy: None (Room [...] Level of Mobility: Ambulatory- household only Mobility Ches[place]: Independent gait with device (rollator) History of [...] Mobility Bed Mobility Exam: Scooting/Bridging Level of [place]: Modified independence (anteriorly to EOB) Assistive Device: Bed rails Bed Mobility Exam: Supine to Sit Level of Cheshire: Modified [place] (to the right) Physical/Nonphysical Assist: (HOB flat) Assistive Device: Bed rails Transfers Transfer Exam: Sit to stand Level of Cheshire: Stand-by assist Physical/Nonphysical Assist: Supervision, Verbal Cues, Minimal cues Assistive Device: Walker, rolling Transfer Exam: Stand to Sit Level of Cheshire: Stand-by assist Physical/Nonphysical Assist: Supervision, Verbal Cues, [...] regarding toileting at this time. Standardized Assessments [facility] 6-Click Daily Activities Help from Other: Don/Doff Regular Lower Body Clothings: None Help From Other: Bathing: Little Help From Other: Toileting: None Help From Other: Don/Doff Upper Body Clothings: None Help From Other: Grooming: None Help From Other: Eating Meals: None [facility] 6 Click - Daily Activities Score: 23/24 [facility] Scoring Interpretation: Scores greater than [...] Note Bev Bobby 64 y.o. male CSN: [id number] Admission: 10/17/2024 6:21 AM Primary Problem: Critical limb ischemia of left lower extremity Finance Consultant reviewed chart and spoke with patient to complete this Initial Case Management Assessment. PCP: Asad Victor MD (Inactive) - Dr. Palomo Preferred pharmacy is [facility] Emergency Contact: Extended Emergency Contact Information Primary Emergency Contact: Patti Hill Relation: Sister Acid Mixer needed? No Insurance: Primary Visit Coverage Payer Plan Sponsor Code Group Number Group Name [facility] MEDICARE [facility] MEDICARE REPLACEMENT [id number] Primary Visit Coverage Subscriber Subscriber ID Subscriber Name Subscriber [facility] Subscriber Address [id number] BEV BOBBY [id number] [place] [address] Secondary Visit Coverage Payer Plan Sponsor Code Group Number Group Name [facility] Secondary Visit Coverage Subscriber Subscriber ID Subscriber Name Subscriber [facility] Subscriber Address [id number] BEV BOBBY [id number] [place] [address] Patient information: Primary Caregiver: Self Daily Living Activities: Functional Status: Independent Living Arrangements: Alone Type of Residence: Private residence, Single Level [address] [place] [address] Current DME: Equipment Currently Used at Home: joy monterroso Income Information: Income Source: Retired Income/Expense Information: Income meets expenses Current Resources Utilized: Food [place] Housing Circumstances-Z Codes: Housing Circumstances (select all [...] Dialysis Services: None. Living Will/Advance Directive/Power of Curer Acid Drum /Guardian: Denied. Additional Comments: Patient is not medically ready for discharge. SW will continue to follow. Mariia Monterroso CHILD AND ADOLESCENT THERAPIST * Care Plan - Emilia Alonso RN [...] from the original note were not included. [facility] Department of Surgery Division of Vascular [...] Prevention: activity supervised assistive device/personal items within [facility] fall prevention program maintained lighting adjusted clutter-free [...] Agree with above assessment and evaluation from resident/OVEN DUMPER. * Op Note - Terrell Gautam MD - 10/17/2024 8:52 AM EDT Operative Note Date: 10/17/24 Location: [facility] Name: Bev Bobby, : 1960, Diagnoses: Pre-op Diagnosis Critical limb ischemia of left lower extremity Common femoral artery pseudoaneurysm Post-op Diagnosis Critical limb ischemia of left lower extremity Common femoral artery pseudoaneurysm Procedure(s): Left common/superficial/profunda femoral thromboendarterectomy with bovine patch repair Left external iliac artery/FINISHED CIGAR MAKER stent Attending Surgeon(s): * Terrell Gautam - Primary Belt Picker(s): * Luna Beckett MD - Resident - [...] Necessity Reasons Recent surgery contiguous with urinary tract/ELECTRICAL TESTER BATTERY/colorectal 10/17/24 190 Output (mL) 50 mL 10/18/24 08 Implants Type Name Action Serial No. VASCUGUARD 8 X 8 - [id number] Implanted STENT ENDOPROSTHESIS VIABAHN 9FR [id number] - [id number] Implanted [id number] Specimen: Specimens ID Source Frozen? 1 Other [...] and distal control. We then proceeded with xzrxf-mvv-mjai exposure of the popliteal artery. A medial [...] balloon dilated thestent with a 9 mm Serafina. We closed the arteriotomy with a single [...] 10/17/2024 8:52 AM EDT Date: 10/17/24 Location: [facility] Name: Bev Bobby, : 1960, Diagnoses: Pre-op Diagnosis Critical limb ischemia of left lower extremity Common femoral artery pseudoaneurysm Post-op Diagnosis Critical limb ischemia of left lower extremity Common femoral artery pseudoaneurysm Procedure(s): Left common/superficial/profunda femoral thromboendarterectomy with bovine patch repair Left external iliac artery/FINISHED CIGAR MAKER stent Attending Surgeon(s): * Terrell Gautam - Primary Belt Picker(s): * Luna Beckett MD - Resident - Assisting * Dandy Baltazar MD - Fellow Anesthesia: General ASA: III Blood Administration: Blood Product Administration History None Estimated Blood Loss: 300 mL Drains: Urethral Catheter Temperature probe 16 Fr. (Active) Implants Type Name Action Serial No. VASCUGUARD 8 X 8 - [id number] Implanted STENT ENDOPROSTHESIS VIABAHN 9FR [id number] - [id number] Implanted [id number] Specimen: Specimens ID Source Frozen? 1 Other [...] issues. 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 He previouslyunderwent thrombin injection. He reports pain in his calves. He presents today for scheduled left lower extremity femoral to wfktw-php-tgec popliteal bypass. Planned likely use PTFE. He [...] 16. Results Review {Vanishing Link Review Results :[id number] I have reviewed the latest lab and imaging results. Assessment & Plan Critical limb ischemia of left lower extremity Proceed with scheduled surgery left lower extremity femoral to ixgkq-ujv-uypx popliteal artery bypass graft. Extensive discussion had [...] [facility] [address] [place] [address] 11/26/2024 2:30 PM EDT Hospital Encounter [facility] [address] [place] [address] 11/26/2024 3:20 PM EDT Office Visit [facility] [address] [facility] 5th Floor [address] [place] [address] Elisabet Schuster, PA [address] [facility] [address] [place] [address] 11/29/2024 2:30 PM EDT Office Visit [facility] [address] [place] [address] Oscar Appiah MD [address] [place] [address] Pending Results Name Type Priority Associated Diagnoses [...] PREPARE RBC STAT 10/17/2024 8:06 AM EDT TN VEIN BYPASS GRAFT,FEM-POP 10/17/2024 7:38 AM EDT Critical limb ischemia of left lower extremity TYPE AND SCREEN Routine 10/17/2024 7:19 AM EDT POCT GLUCOSE METER UNSOLICITED RESULTS Routine 10/17/2024 6:44 AM EDT documented in this encounter Results * (ABNORMAL) POCT glucose meter (10/19/2024 11:40 AM EDT) [facility] POCT Glucose 207(H) 74 - 99 [...] Comment 10/19/2024 11:42 AM EDT HEALTHCARE LAB Rn Rehab ID KamranJbo 10/20/19 11:42 AM EDT HEALTHCARE LAB Device ID [id number] 10/19/2024 11:42 AM EDT HEALTHCARE LAB Specimen Type POC Capillary 10/19/2024 11:42 AM EDT [facility] Blood Capillary blood specimen / Unknown 10/19/2024 11:40 AM EDT 10/19/2024 11:42 AM EDT us Terrell Gautam MD LAB POINT OF CARE TE ST DOCKED DEVICE UNSOLICITED RESULTS Final Result Performing Organization Address City/State/[facility] Co de Phone Number HEALTHCARE LAB [address] [place] [address] * (ABNORMAL) Protime-INR (10/19/2024 8:25 AM EDT) [facility] Prothrombin Time 17.5(H) 12.0 - 14.3 [...] BLOOD ORDERABLES Final Result Performing Organization Address [facility]/ZIP Co de Phone Number [facility] [address] [place] [address] * (ABNORMAL) Phosphorus (10/19/2024 8:25 AM EDT) Phosphorus, Plasma 2.2(L) 2.5 - 4.5 mg/dL 10/19/2024 9:12 AM EDT [facility] Blood Venous blood specimen / Unknown Venipuncture / Unknown 10/19/2024 8:25 AM EDT 10/19/2024 8:43 AM EDT us Nirmal Cueto MD LAB BLOOD ORDERABLES Final Result Performing Organization Address [facility] Co de Phone Number [facility] [address] [place] [address] * Magnesium (10/19/2024 8:25 AM EDT) Magnesium, Plasma 2.1 1.9 - 2.4 mg/dL 10/19/2024 9:12 AM EDT [facility] Blood Venous blood specimen / Unknown Venipuncture / Unknown 10/19/2024 8:25 AM EDT 10/19/2024 8:43 AM EDT Nirmal Cueto MD LAB BLOOD ORDERABLES Final Result Performing Organization Address [facility] Co de Phone Number [facility] [address] [place] [address] * (ABNORMAL) Basic metabolic panel (10/19/2024 8:25 [...] Result [facility] [address] [place] [address] * (ABNORMAL) CBC W/O Differential (10/19/2024 8:25 [...] Result [facility] [address] [place] [address] * (ABNORMAL) POCT glucose meter (10/19/2024 7:35 AM EDT) [facility] POCT Glucose 187(H) 74 - 99 [...] Comment 10/19/2024 7:37 AM EDT HEALTHCARE LAB Rn Rehab ID Job Andrew 10/20/19 7:37 AM EDT HEALTHCARE LAB Device ID [id number] 10/19/2024 7:37 AM EDT HEALTHCARE LAB Specimen Type POC Capillary 10/19/2024 7:37 AM EDT [facility]ALTH[facility]ARE LAB Blood Capillary blood specimen / Unknown 10/19/2024 7:35 AM EDT 10/19/2024 7:37 AM EDT us Terrell Gautam MD LAB POINT OF CARE TE ST DOCKED DEVICE UNSOLICITED RESULTS Final Result Performing Organization Address City/State/[facility] Co de Phone Number HEALTHCARE LAB [address] [place] [address] * (ABNORMAL) POCT glucose meter (10/18/2024 7:22 [...] Comment 10/18/2024 7:24 PM EDT HEALTHCARE LAB Rn Rehab ID Mahesh Aldana 10/18/2024 7:24 PM EDT HEALTHCARE LAB Device ID [id number] 10/18/2024 7:24 PM EDT HEALTHCARE LAB Specimen Type POC Capillary 10/18/2024 7:24 PM EDT HEALTHCARE LAB Blood Capillary blood specimen / Unknown 10/18/2024 7:22 PM EDT 10/18/2024 7:24 PM EDT us Terrell Gautam MD LAB POINT OF CARE TE ST DOCKED DEVICE UNSOLICITED RESULTS Final Result Performing Organization Address City/[facility] Co de Phone Number [facility] [address] [place] [address] * (ABNORMAL) POCT glucose meter (10/18/2024 6:07 [...] Comment 10/18/2024 6:09 PM EDT HEALTHCARE LAB Rn Rehab ID David Parks 10/18/2024 6:09 PM EDT HEALTHCARE LAB Device ID [id number] 10/18/2024 6:09 PM EDT HEALTHCARE LAB Specimen Type POC Capillary 10/18/2024 6:09 PM EDT [facility] Blood Capillary blood specimen / Unknown 10/18/2024 6:07 PM EDT 10/18/2024 6:09 PM EDT Terrell Gautam MD LAB POINT OF CARE TE ST DOCKED DEVICE UNSOLICITED RESULTS Final Result Performing Organization Address City/[facility] Co de Phone Number [facility] [address] [place] [address] * (ABNORMAL) POCT glucose meter (10/18/2024 11:56 [...] 10/21/2024 7:42 AM EDT [facility] Rn Rehab ID Venessa Marcano 10/21/2024 7:42 AM EDT [facility] Device ID [id number] 10/21/2024 7:42 AM EDT HEALTHCARE LAB Specimen Type POC Capillary 10/21/2024 7:42 AM EDT HEALTHCARE LAB Blood Capillary blood specimen / Unknown 10/18/2024 11:56 AM EDT 10/21/2024 7:42 AM EDT us Terrell Gautam MD LAB POINT OF CARE TE ST DOCKED DEVICE UNSOLICITED RESULTS Final Result Performing Organization Address [facility] Co de Phone Number [facility] [address] [place] [address] * (ABNORMAL) POCT glucose meter (10/18/2024 9:24 AM EDT) [facility] POCT Glucose 322(H) 74 - 99 [...] Comment 10/21/2024 7:42 AM EDT HEALTHCARE LAB Rn Rehab ID Emilia Alonso 7:42 AM EDT HEALTHCARE LAB Device ID [id number] 10/21/2024 7:42 AM EDT HEALTHCARE LAB Specimen Type POC Venous 10/21/2024 7:42 AM EDT HEALTHCARE LAB Blood Venous blood specimen / Unknown 10/18/2024 9:24 AM EDT 10/21/2024 7:42 AM EDT us Terrell Gautam MD LAB POINT OF CARE TE ST DOCKED DEVICE UNSOLICITED RESULTS Final Result Performing Organization Address City/[facility] Co de Phone Number [facility] [address] [place] [address] * (ABNORMAL) POCT glucose meter (10/18/2024 7:36 AM EDT) [facility] POCT Glucose 215(H) 74 - 99 mg/dL [...] Comment 10/18/2024 7:38 AM EDT HEALTHCARE LAB Rn Rehab ID Kizzy Godfrey 025 7:38 AM EDT HEALTHCARE LAB Device ID [id number] 10/18/2024 7:38 AM EDT [facility] Specimen Type POC Capillary 10/18/2024 7:38 AM EDT [facility] Blood Capillary blood specimen / Unknown 10/18/2024 7:36 AM EDT 10/18/2024 7:38 AM EDT us Terrell Gautam MD LAB POINT OF CARE TE ST DOCKED DEVICE UNSOLICITED RESULTS Final Result HEALTHCARE LAB [address] [place] [address] * (ABNORMAL) CBC (10/18/2024 2:09 AM EDT) [facility] WBC Count 16.71(H) 3.70 - 10.30 10*3/uL [...] Result [facility] [address] [place] [address] * (ABNORMAL) Basic metabolic panel (10/18/2024 2:09 [...] BLOOD ORDERABLES Final Result Performing Organization Address City/[facility]/ZIP Co de Phone Number [facility] [address] [place] [address] * (ABNORMAL) Magnesium (10/18/2024 2:09 AM EDT) Magnesium, Plasma 1.8(L) 1.9 - 2.4 mg/dL 10/18/2024 2:53 AM EDT [facility] Blood Venous blood specimen / Unknown Venipuncture / Unknown 10/18/2024 2:09 AM EDT 10/18/2024 2:25 AM EDT Nirmal Cueto MD LAB BLOOD ORDERABLES Final Result [facility] [address] [place] [address] * Phosphorus (10/18/2024 2:09 AM EDT) Phosphorus, Plasma 3.7 2.5 - 4.5 mg/dL 10/18/2024 2:53 AM EDT [facility] Blood Venous blood specimen / Unknown Venipuncture / Unknown 10/18/2024 2:09 AM EDT 10/18/2024 2:25 AM EDT Nirmal Cueto MD LAB BLOOD ORDERABLES Final Result Performing Organization Address [facility] Co de Phone Number [facility] [address] [place] [address] * (ABNORMAL) Protime-INR (10/18/2024 2:09 AM EDT) [...] BLOOD ORDERABLES Final Result Performing Organization Address [facility] Co de Phone Number [facility] [address] [place] [address] * (ABNORMAL) POCT glucose meter (10/18/2024 2:08 AM EDT) POCT Glucose 202(H) 74 - 99 mg/dL 10/18/2024 2:10 AM EDT [facility] Comment:Accuracy of a glucos e result [...] Comment 10/18/2024 2:10 AM EDT HEALTHCARE LAB Rn Rehab ID Jourdan Grimes II 10/18/2024 2:10 AM EDT HEALTHCARE LAB Device ID [id number] 10/18/2024 2:10 AM EDT HEALTHCARE LAB Specimen Type POC Capillary 10/18/2024 2:10 AM EDT HEALTHCARE LAB Blood Capillary blood specimen / Unknown 10/18/2024 2:08 AM EDT 10/18/2024 2:10 AM EDT us Terrell Gautam MD LAB POINT OF CARE TE ST DOCKED DEVICE UNSOLICITED RESULTS Final Result Performing Organization Address City/State/[facility] Phone Number HEALTHCARE LAB [address] [place] [address] * (ABNORMAL) POCT glucose meter (10/17/2024 10:07 PM EDT) [facility] POCT Glucose 300(H) 74 - 99 mg/dL [...] Comment 10/17/2024 10:10 PM EDT HEALTHCARE LAB Rn Rehab ID Jourdan Grimes II 10/17/2024 10:10 PM EDT HEALTHCARE LAB Device ID [id number] 10/17/2024 10:10 PM EDT HEALTHCARE LAB Specimen Type POC Capillary 10/17/2024 10:10 PM EDT HEALTHCARE LAB Blood Capillary blood specimen / Unknown 10/17/2024 10:07 PM EDT 10/17/2024 10:10 PM EDT us Terrell Gautam MD LAB POINT OF CARE TE ST DOCKED DEVICE UNSOLICITED RESULTS Final Result Performing Organization Address City/State/[facility] Co de Phone Number HEALTHCARE LAB [address] [place] [address] * (ABNORMAL) POCT glucose meter (10/17/2024 8:07 PM EDT) [facility] POCT Glucose 391(H) 74 - 99 mg/dL [...] Comment 10/17/2024 8:10 PM EDT HEALTHCARE LAB Rn Rehab ID Cornelio WALTERS Jourdan 10/17/2024 8:10 PM EDT HEALTHCARE LAB Device ID [id number] 10/17/2024 8:10 PM EDT [facility] Specimen Type POC Capillary 10/17/2024 8:10 PM EDT [facility] Blood Capillary blood specimen / Unknown 10/17/2024 8:07 PM EDT 10/17/2024 8:10 PM EDT Terrell Gautam MD LAB POINT OF CARE TE ST DOCKED DEVICE UNSOLICITED RESULTS Final Result Performing Organization Address [facility] Co de Phone Number HEALTHCARE LAB [address] [place] [address] * (ABNORMAL) POCT glucose meter (10/17/2024 4:01 PM EDT) [facility] POCT Glucose 249(H) 74 - 99 mg/dL [...] 10/17/2024 4:03 PM EDT [facility] [facility] Rn Rehab ID Chelsieamanda Keisha 10/17/2024 4:03 PM EDT [facility] Device ID [id number] 10/17/2024 4:03 PM EDT [facility] Specimen Type POC Capillary 10/17/2024 4:03 PM EDT [facility] Blood Capillary blood specimen / Unknown 10/17/2024 4:01 PM EDT 10/17/2024 4:03 PM EDT us Terrell Gautam MD LAB POINT OF CARE TE ST DOCKED DEVICE UNSOLICITED RESULTS Final Result Performing Organization Address City/[facility] Co de Phone Number [facility] [address] [place] [address] * (ABNORMAL) POCT glucose meter (10/17/2024 1:25 PM EDT) [facility] Signature POCT Glucose 225(H) 74 - 99 [...] 10/17/2024 1:27 PM EDT [facility] Rn Rehab ID Kizzy Godfrey 025 1:27 PM EDT [facility] Device ID [id number] 10/17/2024 1:27 PM EDT [facility] Specimen Type POC Capillary 10/17/2024 1:27 PM EDT [facility] Blood Capillary blood specimen / Unknown 10/17/2024 1:25 PM EDT 10/17/2024 1:27 PM EDT us Terrell Gautam MD LAB POINT OF CARE TE ST DOCKED DEVICE UNSOLICITED RESULTS Final Result Performing Organization Address City/[facility] Co de Phone Number [facility] [address] [place] [address] * [place] Less than 1 Hour Intraoperative [...] Seconds 10/29/2024 7:28 AM EDT [facility]ALTH[facility]ARE LAB Rn Rehab ID Donna Mcmillan 10/29/2024 7:28 AM EDT [facility]ALTH[facility] ACT Device ID [id number] 10/29/2024 7:28 AM EDT [facility] Comment 10/29/2024 7:28 AM EDT [facility] [...] UNSOLICITED RESULTS Final Result Performing Organization Address City/[facility] de Phone Number [facility] [address] LAB [address] [place] [address] * (ABNORMAL) Blood gas, arterial (10/17/2024 11:48 [...] sult [facility] [address] [place] [address] * POCT ACT (10/17/2024 11:41 AM EDT) ACT+ (HIGH RANGE) 175 68 - 600 Seconds 10/29/2024 7:28 AM EDT [facility] Rn Rehab ID Oneyda Alicea 10/29/2024 7:28 AM EDT [facility] ACT Device ID [id number] 10/29/2024 7:28 AM EDT [facility] Comment 10/29/2024 7:28 AM EDT [facility] Comment: ACT performed by [...] UNSOLICITED RESULTS Final Result Performing Organization Address [facility] Co de Phone Number HEALTH[facility]ARE [facility] [address] LAB [address] [place] [address] * POCT ACT (10/17/2024 11:11 AM EDT) [facility] Signature ACT+ (HIGH RANGE) 252 68 - 600 Seconds 10/29/2024 7:28 AM EDT [facility] Rn Rehab ID Donna Mcmillan 10/29/2024 7:28 AM EDT [facility] ACT Device ID [id number] 10/29/2024 7:28 AM EDT [facility] Comment 10/29/2024 7:28 AM EDT [facility] Comment: ACT performed by [...] UNSOLICITED RESULTS Final Result Performing Organization Address City/[facility] Co de Phone Number HEALTHCARE LAB [address] LAB [address] [place] [address] * (ABNORMAL) Blood gas, arterial (10/17/2024 10:46 [...] 10:54 AM EDT us Jenna Munira Lopez [facility] [facility] LAB BLOOD ORDERABLES Final Re sult Performing Organization Address [facility] Co de Phone Number [facility] [address] [place] [address] * POCT ACT (10/17/2024 10:37 AM EDT) ACT+ (HIGH RANGE) 206 68 - 600 Seconds 10/29/2024 7:28 AM EDT HEALTHCARE LAB Rn Rehab ID Donna Mcmillan 10/29/2024 7:28 AM EDT [facility] ACT Device ID [id number] 10/29/2024 7:28 AM EDT [facility] Comment 10/29/2024 7:28 AM EDT [facility] [...] UNSOLICITED RESULTS Final Result Performing Organization Address [facility] de Phone Number [facility] [address] [place] [address] * Surgical Pathology Exam (10/17/2024 10:27 AM EDT) Case Report Surgical Pathology Case: [id number] Authorizing Provider: Terrell Gautam MD Collected: 10/17/2024 1027 Ordering Location: [facility] A OPERATING ROOM Received: 10/17/2024 1325 Pathologist: [...] cm. The specimen is serially sectioned and member services representative sections are submitted in cassette A1. [...] Result [facility] [address] [place] [address] * POCT ACT (10/17/2024 10:03 AM EDT) ACT+ (HIGH RANGE) 244 68 - 600 Seconds 10/29/2024 7:28 AM EDT [facility] Rn Rehab ID Donna Mcmillan 10/29/2024 7:28 AM EDT HEALTHCARE LAB ACT Device ID [id number] 10/29/2024 7:28 AM EDT HEALTHCARE LAB Comment [...] ST DOCKED DEVICE UNSOLICITED RESULTS Final Result [facility] [address] LAB [address] [place] [address] * (ABNORMAL) Blood gas, arterial (10/17/2024 9:45 [...] sult [facility] [address] [place] [address] * (ABNORMAL) Blood gas, arterial (10/17/2024 8:47 [...] sult [facility] [address] [place] [address] * POCT ACT (10/17/2024 8:46 AM EDT) ACT+ (HIGH RANGE) 101 68 - 600 Seconds 10/29/2024 7:28 AM EDT [facility] Rn Rehab ID Donna Mcmillan 10/29/2024 7:28 AM EDT [facility] ACT Device ID [id number] 10/29/2024 7:28 AM EDT [facility] Comment 10/29/2024 7:28 AM EDT [facility] [...] RESULTS Final Result [facility] [address] LAB [address] [place] [address] * Type and Screen (10/17/2024 7:19 AM [...] Result Performing Organization Address [facility] Co de Phone Number BLOOD BANK [address] [place] [address] * (ABNORMAL) POCT glucose meter (10/17/2024 6:44 AM EDT) [facility] POCT Glucose 178(H) 74 - 99 mg/dL [...] 10/17/2024 6:49 AM EDT [facility] Rn Rehab ID Hunter Burroughs 10/18/19 6:49 AM EDT [facility] Device ID [id number] 10/17/2024 6:49 AM EDT [facility] Specimen Type POC Capillary 10/17/2024 6:49 AM EDT [facility] Blood Capillary blood specimen / Unknown 10/17/2024 6:44 AM EDT 10/17/2024 6:49 AM EDT us Terrell Gautam MD LAB POINT OF CARE TE ST DOCKED DEVICE UNSOLICITED RESULTS Final Result [facility] [address] [place] [id number] documented in this encounter Visit Diagnoses Diagnosis [...] II, CHRISTIAN) 2001 (Given - Provider: Kassie aMo, CHRISTIAN) rivaroxaban (Xarelto) tablet 20 mg 20 [...] Starting on Yadira 10/17/24 at 0831, Until Ydaira 10/17/24 at 1317, Routine 0831 (New Bag [...] documented as of this encounter Care Teams 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
--- OUTSIDE RECORDS SUMMARY | 2024-11-05 21:45 | XMS_ITS | Encounter Summary ---
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 NOTIFY THE ID CONSULTING SERVICE OF ANY QUESTIONS REGARDING THESE RECOMMENDATIONS OR WITH ANY ANTIMICROBIAL CHANGES THAT OCCUR AFTER THE DATE/TIME OF THIS OPAT INTAKE NOTE. Cosigned by Vaishali Kraus MD at 11/14/2024 1:40 AM EDT Associated attestation - Vaishali Kraus MD - 11/14/2024 1:40 AM EDT I discussed the case with the resident/fellow and agree with the findings and plan as documented. Vaishali Kraus MD * Progress Notes - Reid Dnaiels MD - 11/13/2024 9:07 AM EDT Images from the original note were not included. [facility] Department of Surgery Division of Vascular Surgery Surgery Progress Note 11/13/24 Bev Borja Subjective Subjective: HPI 64yoM PMHx COPD, T2DM, HLD, HTN, RLS, CAD s/p PCI (on Xarelto) s/p pacemaker c/b left SANDIP pseudoaneurysm s/p thrombin injection 09/21/24, CLI s/p left femoral endarterectomy with EIA/OR ASSISTANT stenting 10/17/24, who presented to [facility] 11/05/2024 with wound infection. 11/06/24: L groin/thigh washout and debridement. No arterial involvement noted. Interval: NAEO. Wound vac in place. Patient reports pain is well controlled. He continues to ambulate and have good PO intake. Edited by: Reid Daniels MD at 11/13/2024 0906 Review of Systems: Relevant review of systems was obtained as able and is negative unless stated above in HPI. Objective Objective: Vital signs: Vitals: 11/13/24 0821 BP: (!) 174/72 Pulse: 73 Resp: Temp: 36.6 ??C (97.8 ??F) SpO2: 95% Physical Exam: Physical Exam HENT: Head: Normocephalic. Pulmonary: Effort: Pulmonary effort is normal. Musculoskeletal: Comments: L groin and L leg incisions with wound vac in place and holding suction Neurological: Mental Status: He is alert. Intake/Output Summary (Last 24 hours) at 11/13/2024 0907 Last data filed at 11/13/2024 0413 Gross per 24 hour Intake 540 ml Output 0 ml Net 540 ml Lines/Drains/Tubes: Patient Lines/Drains/Airways Status Active Airway None Output by Drain (mL) 11/11/24 0700 - 11/11/24 1859 11/11/24 1900 - 11/12/24 0659 11/12/24 0700 - 11/12/24 1859 11/12/24 1900 - 11/13/24 0659 11/13/24 0700 - 11/13/24 0907 Patient has no LDAs of requested type attached. Labs in last 18 hours: CBC WBC 11.72 (H) Hb 8.5 (L) Plt 398 (H) Hct 26.4 (L) ANC ?? INR ??, PTT ??, Anti-Xa ?? MCV 92 BMP Na 135 (L) Cl 107 BUN 10 Glu 200 (H) K 3.9 Co2 21 (L) Cr 0.68 (L) Ca 8.1 (L) iCa ?? Mg 2.0, Phos 1.7 (L) Lactate ?? LFT AST ?? AlkPhos ?? T Prot ?? ALK ?? Bili ?? Alb ?? D.Bili ?? Lab Trends: H/H Results from last 7 days Lab Units 11/13/24 0637 11/11/24 0056 11/10/24 0031 HEMOGLOBIN g/dL 8.5* 8.9* 9.1* HEMATOCRIT % 26.4* 27.2* 28.0* INR Cr Results from last 7 days Lab Units 11/13/24 0637 11/11/24 0112 11/10/24 0031 CREATININE mg/dL 0.68* 0.82 0.72 Lactate No lab exists for component: LACTTEVEN Radiographic Interpretation: No imagining today. Medications reviewed. Vital signs reviewed. Labs reviewed. Assessment/Plan Assessment and Plan: Bev Borja is a 64yo M PMHx COPD, T2DM, HLD, HTN, RLS, CAD s/p PCI (on Xarelto) s/p pacemaker c/b left SANDIP pseudoaneurysm s/p thrombin injection 09/21/24, CLI s/p left femoral endarterectomy with EIA/OR ASSISTANT stenting 10/17/24, who presented to [facility] 11/05/2024 with wound infection. POD # 2 s/p L groin/thigh washout and debridement. Discussed with ID and patient and patient refuses facility. Patient will be set up with local OSH for daily IV abx admin and wound care. Awaiting final sensitivities per ID for DC. Plan: - Will need 4-6 weeks IV ABX and PICC. Will proceed with modified OPAT. - Continue vanc - Started ertapenem - Started micofungin - DC with two wound vacs- now in place with M/W/F changes - PICC placed 11/09, awaiting final ID abx recs - Continue SSI Edited by: Reid Daniels MD at 11/13/2024 0906 Dispo: Continue Current Level of Care Reid Daniels MD Cosigned by Neil Isaac MD at 11/16/2024 9:37 PM EDT Associated attestation - Neil Isaac MD - 11/16/2024 9:37 PM EDT I saw and evaluated the patient with the resident/fellow. I discussed the case with the resident/fellow and agree with the findings and plan as documented. * Progress Notes - Dotty Sethi MD - 11/13/2024 8:06 AM EDT Images from the original note were not included. GENERAL INFECTIOUS DISEASE PROGRESS NOTE Attending: Nathaly Nowak MD Subjective: NAEON. Pt reports that his left groin pain is improved. He reports back pain. Objective: Visit Vitals BP (!) 174/72 Pulse 73 Temp 36.6 ??C (97.8 ??F) Resp 18 Ht 1.702 m (5' 7 ) Wt 88.1 kg (194 lb 3.6 oz) SpO2 95% BMI 30.42 kg/m?? Smoking Status Former BSA 2.04 m?? Physical Exam Constitutional: General: He is not in acute distress. Cardiovascular: Rate and Rhythm: Normal rate and regular rhythm. Pulmonary: Effort: Pulmonary effort is normal. Breath sounds: Normal breath sounds. Abdominal: Tenderness: There is no abdominal tenderness. Musculoskeletal: General: Normal range of motion. Skin: General: Skin is warm and dry. Comments: Wound vac present on left groin Neurological: General: No focal deficit present. Psychiatric: Mood and Affect: Mood normal. Labs: CBC WBC 11.72 (H) Hb 8.5 (L) Plt 398 (H) Hct 26.4 (L) ANC ?? BMP Na 135 (L) Cl 107 BUN 10 Glu 200 (H) K 3.9 Co2 21 (L) Cr 0.68 (L) Mg 2.0, Phos 1.7 (L) LFT AST ?? AlkPhos ?? T Prot ?? ALK ?? Bili ?? Alb ?? D.Bili ?? Results from last 7 days Lab Units 11/12/24 0948 CRP mg/L <3.0 Medications: Current Medications[1] Imaging/Studies: FL Less than 1 Hour Intraoperative Images were obtained for surgical purposes. See Terrell Gautam's surgical note in the patient's chart for the findings. Cardiac Device Check - PRE-OR [facility]: Pre-operative CIED Report Assessment and Sara-Procedural Reommendations: Name: Bev Borja Date: 10/17/2024 : 1960 Age: 64 y.o. 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 Lead integrity test [...] recommendations. Supporting reports can be found in [employer] media file. Micro: Susceptibility data from last 90 days. Collected Specimen Info Organism Amoxicillin/Clavulanate Ampicillin Ampicillin/Sulbactam Aztreonam Cefazolin Cefepime Susceptibility Ciprofloxacin Clindamycin Daptomycin Ertapenem Erythromycin Gentamicin Levofloxacin 11/06/24 Tissue from Other (specify site) Staphylococcus pseudintermedius S S S S 11/06/24 Tissue from Other (specify site) Enterobacter cloacae complex R R R S R S S S S S Pasteurella stomatis Streptococcus mitis/oralis group 11/06/24 Tissue from Other (specify site) Sana parapsilosis 11/06/24 Swab from Other (specify site) Staphylococcus pseudintermedius S S S S Streptococcus mitis/oralis group 11/06/24 Swab from Other (specify site) Enterobacter cloacae complex Collected Specimen Info Organism Linezolid Meropenem Minocycline Oxacillin Penicillin G Piperacillin/Tazobactam Tetracycline Tobramycin Trimethoprim/Sulfamethoxazole Vancomycin 11/06/24 Tissue from Other (specify site) Staphylococcus pseudintermedius S S S R S S 11/06/24 Tissue from Other (specify site) Enterobacter cloacae complex S S S S S Pasteurella stomatis Streptococcus mitis/oralis group 11/06/24 Tissue from Other (specify site) Sana parapsilosis 11/06/24 Swab from Other (specify site) Staphylococcus pseudintermedius S S S R S S Streptococcus mitis/oralis group 11/06/24 Swab from Other (specify site) Enterobacter cloacae complex Results Procedure Component Value Units Date/Time Tissue Culture and Gram Stain [[id number]] (Abnormal) (Susceptibility) Collected: 11/06/24 1134 Order Status: Completed Specimen: Tissue from Other (specify site) Updated: 11/12/24 1334 Culture Moderate Growth 2+ Enterobacter cloacae complex Comment: This isolate has been identified using the FDA Approved [employer] System The organism value for this result has been updated. These results have been appended to the previously preliminary verified report. Edited result: Previously reported as Gram Negative Jesus on 11/07/2024 at 1434 EDT. 2+ Streptococcus mitis/oralis group Comment: This isolate has been identified using the FDA Approved [employer] System The organism value for this result has been updated. These results have been appended to the previously preliminary verified report. 2+ Pasteurella stomatis Comment: This result was determined by MALDI tof mass spectrometry using the [employer] database and is for research use only. The organism value for this result has been updated. These results have been appended to the previously preliminary verified report. Gram Stain Result Few Gram negative rods Moderate Polymorphonuclear leukocytes Few Gram positive cocci in pairs Narrative: ElizabethD Hunter Alberts requests penicillin, ceftriaxone and vancomycin on Streptococcus Susceptibility Enterobacter cloacae complex ANGÉLICA Amoxicillin/Clavulanate Resistant Ampicillin Resistant Ampicillin/Sulbactam Resistant Aztreonam Susceptible Cefazolin Resistant Cefepime Susceptible Ciprofloxacin Susceptible Ertapenem Susceptible Gentamicin Susceptible Levofloxacin Susceptible Meropenem Susceptible Piperacillin/Tazobactam Susceptible Tetracycline Susceptible Tobramycin Susceptible Trimethoprim/Sulfamethoxazole Susceptible Susceptibility Comments Enterobacter cloacae complex This organism may produce inducible or derepressed AmpC ??-lactamase, which can lead to treatment failure with third-generation cephalosporins (e.g., ceftriaxone, ceftazidime) despite apparent in vitro susceptibility. In serious infections (e.g., bacteremia), agents such as cefepime or carbapenems are preferred. Consider discussing with infectious disease or antimicrobial stewardship team. Comprehensive GI Panel by PCR [[id number]] (Normal) Collected: 11/12/24 0950 Order Status: Completed Specimen: Stool from Rectum Updated: 11/12/24 1300 Campylobacter PCR Result Not Detected Plesiomonas shigelloides PCR Result Not Detected Salmonella PCR Result Not Detected Vibrio species PCR Result Not Detected Vibrio cholerae PCR Result Not Detected Yersinia enterocolitica PCR Result Not Detected Enteroaggregative E. coli (EAEC) PCR Result Not Detected Enteropathogenic E. coli (EPEC) PCR Result Not Detected Enterotoxigenic E. coli (ETEC) lt/st PCR Result Not Detected Shiga-like Toxin-Producing E.coli (STEC) stx1/stx2 PCR Resu Not Detected E coli 0157 PCR Result Not Detected Shigella/Enteroinvasive E. coli (EIEC) PCR Result Not Detected Cryptosporidium PCR Result Not Detected Cyclospora cayetanensis PCR Result Not Detected Entamoeba histolytica PCR Result Not Detected Giardia duodenalis (aka Giardia lamblia) PCR Result Not Detected Adenovirus F 40/41 PCR Result Not Detected Astrovirus PCR Result Not Detected Norovirus GI/GII PCR Result Not Detected Rotavirus A PCR Result Not Detected Sapovirus PCR Result Not Detected Narrative: This specimen was tested for the following analytes: Campylobacter species, Plesiomonas shigelloides, Salmonella species, Vibrio species, Vibrio cholerae, Yersinia enterolitica, Enteroaggregative E. coli (EAEC), Enteropathogenic E. Coli (EPEC), Enterotoxigenic E. coli (ETEC), Shiga-like toxin-producing E. coli (STEC), Shigella/Enteroinvasive E. coli (EIEC), Cryptosporidium, Cyclospora cayetanensis, Entamoeba histolytica, Giardia lamblia, Adenovirus f40/41, Astrovirus, Norovirus GI/GII, Rotavirus A, and Sapovirus. Note: Clostridium difficile toxin a/b will no longer be resulted using this platform. Please order the Clostridium difficile by PCR assay if clinically indicated. Clostridiodes (Clostridium) difficile PCR [[id number]] (Normal) Collected: 11/12/24 0950 Order Status: Completed Specimen: Stool from Rectum Updated: 11/12/24 1154 C difficile PCR toxin B gene DNA Result Not Detected Narrative: This test is FDA approved for use with liquid stool specimens. This test is used for clinical purposes. It should not be regarded as investigational or for research. This laboratory is certified under the Clinical Laboratory Improvement Amendments of 1988 (CLIA-88) as qualified to perform high complexity clinical laboratory testing. Anaerobic Culture [[id number]] Collected: 11/06/24 1128 Order Status: Completed Specimen: Swab from Other (specify site) Updated: 11/12/24 1118 Culture No growth at day 4 Fungal Culture, Tissue and ISIDRO [[id number]] (Abnormal) Collected: 11/06/24 1134 Order Status: Completed Specimen: Tissue from Other (specify site) Updated: 11/12/24 1033 Culture Reading Mycological 4 Weeks Rare Bates Sana parapsilosis Comment: This isolate has been identified using the FDA Approved [employer] System The organism value for this result has been updated. These results have been appended to the previously preliminary verified report. Edited result: Previously reported as Yeast on 11/11/2024 at 1317 EDT. ISIDRO No fungal elements seen Additional Susceptibilities and/or Identification [[id number]] Collected: 11/11/24 1240 Order Status: Completed Specimen: Tissue from Wound (specify site): Additional Susceptibilities and/or Identification [[id number]] Collected: 11/11/24 1238 Order Status: Completed Specimen: Tissue from Wound (specify site): Additional Susceptibilities and/or Identification [[id number]] Collected: 11/11/24 1237 Order Status: Completed Specimen: Tissue from Wound (specify site): AFB Culture, Non Respiratory Source and Acid Fast Stain [[id number]] Collected: 11/06/24 1134 Order Status: Completed Specimen: Tissue from Other (specify site) Updated: 11/11/24 0938 AFB Culture No Mycobacterial Growth <1 Week Acid Fast Stain No acid fast bacilli seen Blood Culture (Aerobic/Anaerobet Set) [[id number]] Collected: 11/06/24 0107 Order Status: Completed Specimen: Blood from AC, Left Updated: 11/11/24 0301 Culture No growth at day 5 Blood Culture (Aerobic/Anaerobet Set) [[id number]] Collected: 11/06/24106 Order Status: Completed Specimen: Blood from Hand, Right Updated: 11/11/24 0249 Culture No growth at day 5 Micro: BC x2 11/06: negative Wound culture 11/06: Enterobacter cloacae complex Tissue culture 11/06: Enterobacter cloacae complex, streptococcus mitis/oralis, pastuerella stomatis Anaerobic culture 11/06: Staphylococcus Pseudintermedius Fungal culture 11/06: rare colony sana parapsilosis Stool PCR 11/12: c diff neg, GI panel neg Antimicrobials: Cefepime: 11/07 - P Metronidazole: 11/07 - P Vancomycin: 11/05 - P Zosyn: 11/05 - 11/07 Cefazolin: 11/06 Assessment: Patient Summary: Bev Borja is a 64 y.o. male with PMHx of COPD, CAD s/p PCI (on Xarelto) s/p pacemaker c/bleft SANDIP pseudoaneurysm s/p thrombin injection 09/21/24, chronic limb ischemia s/p left femoral endarterectomy with external iliac/common femoral artery stenting 10/17/24, T2DM, HLD, HTN who was transferred to ED on 11/05 after presenting to OSH due to increasing pain from femoral and leg incision sites from left femoral endarterectomy with external iliac/common femoral artery stenting performed on 10/17. In the ED, he was afebrile. WBC 11.3. 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 It did show wound with gas and fluid in the groin and knee and a 3 x 3 cm possible collection in the left groin. He was given Vancomycin and Zosyn at the OSH. On 11/06, pt went to the [facility] vascular surgery for left groin exploration and washout. ID was consulted for antibiotic recommendations. Pt is afebrile. WBC has increased (9.18 -> 10.27 -> 10.8 -> 11.83). Stable today at 11.72.He was initially started on vancomycin and zosyn while waiting for results of cultures. On 11/07, culture grew enterobacter cloacae complex. Vanc was continued. Zosyn stopped. Cefepime and PO flagyl started. Given likely arterial involvement and visualization of the patch in the wound bed, pt will re quire 6 weeks of IV abx. PICC line placed on 11/09. Following 6 weeks of IV abx, pt may need chronicsuppression given presence of prosthetic. Wound vac placed on 11/11. Pt had neg c diff and GI PCR on11/12. Tissue culture growing enterobacter cloacae complex, streptococcus mitis/oralis, pastuerella stomatis. Anaerobic culture growing Staphylococcus Pseudintermedius. 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 Cefepime and flagyl discontinued on 11/12. Pt started on micafungin on 11/12. Ertapenem started on 11/13. Final ID recs: Continue Ertapenem 1 g q24h to cover staphylococcus pseudintermedius, streptococcus mitis/oralis, pasteurella stomatis, enterobacter cloacae. Start date is date of surgery: 11/06 and end date is 12/18. Continue high dose 150 mg micafungin q24h to cover sana. Start date is 11/12 and end date 12/24. ID to evaluate outpatient once susceptibilities return for the sana. Pt could possible be started on high dose fluconazole after PICC is removed. Of note, pt on xarelto. Discontinue vancomycin. OPAT evaluated: modified OPAT appropriate. Pt does not want to stay a facility, plan for [facility] daily IV abx. Plan for ID outpatient follow up, 11/29 at 2:[address] Appiah.Pt will need close follow up with vascular surgery. ID Problem List: # L groin infection Recommendations: - Continue Ertapenem 1 g q24h to cover staphylococcus pseudintermedius, streptococcus mitis/oralis,pasteurella stomatis, enterobacter cloacae - Start date is date of surgery: 11/06 - End date: 12/18 - Continue high dose 150 mg micafungin q24h to cover sana - Start date is 11/12 - End date: 12/24 - ID to evaluate outpatient once susceptibilities return for the sana. Pt could possible be started on high dose fluconazole at Dr Appiah discretion or when PICC is removed. Of note, pt on xarelto - Discontinue vancomycin - Given likely arterial involvement and visualization of the patch in the wound bed, pt will require 6 weeks of IV abx and PICC line, with possible chronic suppresion. - OPAT evaluated: modified OPAT appropriate -plan for ID outpatient follow up, 11/29 at 2:[address] Appiah - Pt will need close follow up with vascular surgery Thank you for allowing us to participate in this patient's care. GEN ID will sign off. Dotty Sethi MD PGY1 History, assessment, and plan discussed with ID attending [1] Current Facility-Administered Medications Medication Dose Route Frequency Provider Last Rate Last Admin acetaminophen (Tylenol) tablet 1,000 mg 1,000 mg Oral q6h [facility] Anthony Reyes MD 1,000 mg at 11/12/24 1805 aspirin chewable tablet 81 mg 81 mg Oral Daily Reid Daniels MD 81 mg at 11/13/24 0839 glucose (Glutose) 40 % oral gel 15-30 grams of glucose 15-30 grams of glucose Sublingual q15 min PRN Reid Daniels MD Or dextrose 10 % (D10W) bolus 125 mL 125 mL Intravenous q15 min PRN Reid Daniels MD Or dextrose 10 % (D10W) bolus 250 mL 250 mL Intravenous q15 min PRN Reid Daniels MD Or glucagon (human recombinant) injection 1 mg 1 mg Intramuscular q15 min PRN Reid Daniels MD ertapenem (INVanz) 1 g in sodium chloride 0.9% 100 mL IVPB (vial adapter required) 1 g Intravenous q24h Es Leong MD 220 mL/hr at 11/13/24 0839 1 g at 11/13/24 0839 hydrALAZINE (Apresoline) injection 10 mg 10 mg Intravenous q6h PRN Cande Cee MD 10 mg at 11/08/24 2352 HYDROmorphone (Dilaudid) injection 0.5 mg 0.5 mg Intravenous q3h PRN Jerry Holcomb MD 0.5 mg at 11/11/24 1443 insulin glargine-yfgn 100 UNIT/ML injection 28 Units 28 Units Subcutaneous Nightly Reid Daniels MD 28Units at 11/12/242125 insulin lispro (Admelog) 100 units/mL injection - Correction - Resistant Dose 0- 10 Units Subcutaneous TID with meals Reid Daniels MD 2 Units at 11/13/2439 insulin lispro (Admelog) injection - Correction - Nighttime Dose 0-3 Units Subcutaneous Twice at night Reid Daniels MD 1 Units at 11/08/242021 labetalol (Normodyne,Trandate) injection 10 mg 10 mg Intravenous q6h PRN Cande Cee MD lactobacillus acidophilus (Floranex) tablet 1 tablet 1 tablet Oral BID with meals Gabriele Leong MD 1 tablet at 11/13/24 0838 lisinopril tablet 40 mg 40 mg Oral Daily Reid Daniels MD 40 mg at 11/13/24 0838 methocarbamol (Robaxin) tablet 500 mg 500 mg Oral 4x daily Anthony Reyes MD 500 mg at 11/13/24 0838 metoprolol tartrate (Lopressor) tablet 100 mg 100 mg Oral BID Anthony Reyes MD 100 mg at 11/13/24 08 micafungin (Mycamine) 150 mg in sodium chloride 0.9 % 100 mL IVPB 150 mg Intravenous q24h Melecio Echevarria 125 mL/hr at 11/12/24 2326 150 mg at 11/12/24 2326 mupirocin (Bactroban) 2 % ointment 1 Application 1 Application Each Nostril BID Reid Daniels MD 1 Application at 11/12/242124 ondansetron ODT (Zofran-ODT) disintegrating tablet 4 mg 4 mg Oral q6h PRN Anthony Reyes MD Or ondansetron (Zofran) injection 4 mg 4 mg Intravenous q6h PRN Anthony Reyes MD Or ondansetron (Zofran) 4 MG/5ML solution 4 mg 4 mg Oral q6h PRN Anthony Reyes MD oxyCODONE (Roxicodone) immediate release tablet 5 mg 5 mg Oral q6h PRN Anthony Reyes MD 5 mg at 11/09/24 0031 Or oxyCODONE (Roxicodone) immediate release tablet 10 mg 10 mg Oral q6h PRN Anthony Reyes MD 10 mg at 11/13/24 0836 Povidone-Iodine 5 % swab solution 1 Application 1 Application Nasal Once Jerry Holcomb MD pravastatin (Pravachol) tablet 40 mg 40 mg Oral Nightly Anthony Reyes MD 40 mg at 11/12/242122 rivaroxaban (Xarelto) tablet 20 mg 20 mg Oral Daily with dinner Reid Daniels MD 20 mg at 11/12/24 1805 rOPINIRole (Requip) tablet 2 mg 2 mg Oral BID Anthony Reyes MD 2 mg at 11/13/24 0838 sodium chloride 0.9 % flush 10 mL 10 mL Intravenous q12h Anthony Reyes MD 10 mL at 11/13/24 0023 And sodium chloride 0.9 % flush 10 mL 10 mL Intravenous PRN Anthony Reyes MD sodium chloride 0.9 % flush 10 mL 10 mL Intravenous q12h Jerry Holcomb MD 10 mL at 11/13/24 0840 And sodium chloride 0.9 % flush 10 mL 10 mL Intravenous PRN Jerry Holcomb MD sodium chloride 0.9 % flush 10 mL 10 mL Intravenous q12h Reid Daniels MD 10 mL at 11/13/24 0258 sodium chloride 0.9 % flush 10 mL 10 mL Intravenous q1h PRN Reid Daniels MD sodium chloride 0.9 % flush 20 mL 20 mL Intravenous q1h PRN Reid Daniels MD Sodium Hypochlorite (Dakin's (HALF-Strength)) external solution 1 Application 1 Application Irrigation Daily Reid Daniels MD 1 Application at 11/11/24 0826 tamsulosin (Flomax) 24 hr capsule 0.4 mg 0.4 mg Oral q PM Anthony Reyes MD 0.4 mg at 805 Vancomycin HCl in NaCl (Vancocin) IVPB 1,000 mg 1,000 mg Intravenous q12h Reid Daniels MD 1,000 mg at11/13/24 0840 Cosigned by Vaishali Kraus MD at 11/14/2024 1:46 AM EDT Associated attestation - Vaishali Kraus MD - 11/14/2024 1:46 AM EDT I saw and evaluated the patient with the resident/fellow. I discussed the case with the resident/fellow and agree with the findings and plan as documented. Patient has a solid plan for going to get his abx and for his wound vac changed. We talked with himand share our ID team contact numbers. ID will sign off. * Care Plan - Jonathan Vale RN - 11/12/2024 10:34 PM EDT Problem: Adult Inpatient Plan of Care Goal: Plan of Care Review Outcome: Ongoing, Progressing Flowsheets (Taken 11/12/2024 2233) Progress: improving Plan of Care Reviewed With: patient Goal: Patient-Specific Goal (Individualized) Outcome: Ongoing, Progressing Flowsheets (Taken 11/12/20242199) Patient/Family-Specific Goals (Include Timeframe): Patient will be free from injury during shift Individualized Care Needs: saftey Anxieties, Fears or Concerns: none expressed Goal: Absence of Hospital-Acquired Illness or Injury Outcome: Ongoing, Progressing Goal: Optimal Comfort and Wellbeing Outcome: Ongoing, Progressing Problem: Infection Goal: Absence of Infection Signs and Symptoms Outcome: Ongoing, Progressing Intervention: Prevent or Manage Infection Flowsheets (Taken 11/12/20242232) Infection Management: aseptic technique maintained Fever Reduction/Comfort Measures: lightweight clothing lightweight bedding Isolation Precautions: protective Problem: Comorbidity Management Goal: Maintenance of Asthma Control Outcome: Ongoing, Progressing Goal: Maintenance of Behavioral Health Symptom Control Outcome: Ongoing, Progressing Goal: Maintenance of COPD Symptom Control Outcome: Ongoing, Progressing Goal: Blood Glucose Level Within Target Range Outcome: Ongoing, Progressing Goal: Maintenance of Heart Failure Symptom Control Outcome: Ongoing, Progressing Goal: Blood Pressure in Desired Range Outcome: Ongoing, Progressing Goal: Maintenance of Osteoarthritis Symptom Control Outcome: Ongoing, Progressing Goal: Bariatric Home Regimen Maintained Outcome: Ongoing, Progressing Goal: Maintenance of Seizure Control Outcome: Ongoing, Progressing Problem: Fall Injury Risk Goal: Absence of Fall and Fall-Related Injury Outcome: Ongoing, Progressing Problem: Skin Injury Risk Increased Goal: Skin Health and Integrity Outcome: Ongoing, Progressing Problem: Lower Extremity Revascularization Goal: Absence of Bleeding Outcome: Ongoing, Progressing Goal: Effective Bowel Elimination Outcome: Ongoing, Progressing Goal: Fluid and Electrolyte Balance Outcome: Ongoing, Progressing Goal: Absence of Infection Signs and Symptoms Outcome: Ongoing, Progressing Goal: Anesthesia/Sedation Recovery Outcome: Ongoing, Progressing Goal: Optimal Pain Control and Function Outcome: Ongoing, Progressing Goal: Nausea and Vomiting Relief Outcome: Ongoing, Progressing Goal: Effective Urinary Elimination Outcome: Ongoing, Progressing Goal: Effective Oxygenation and Ventilation Outcome: Ongoing, Progressing Goal: Effective Tissue Perfusion Outcome: Ongoing, Progressing Problem: Diabetes Goal: Optimal Coping Outcome: Ongoing, Progressing Goal: Optimal Functional Ability Outcome: Ongoing, Progressing Goal: Blood Glucose Level Within Target Range Outcome: Ongoing, Progressing Goal: Minimize Hypoglycemia Risk Outcome: Ongoing, Progressing Problem: Pain Acute Goal: Optimal Pain Control and Function Outcome: Ongoing, Progressing Intervention: Optimize Psychosocial Wellbeing Flowsheets (Taken 11/12/20242232) Supportive Measures: self-care encouraged self-reflection promoted self-responsibility promoted active listening utilized Diversional Activities: television smartphone Spiritual Activities Assistance: affirmation provided Intervention: Develop Pain Management Plan Flowsheets (Taken 11/12/20242232) Pain Management Interventions: medication (see MAR) Intervention: Prevent or Manage Pain Flowsheets (Taken 11/12/20242232) Sensory Stimulation Regulation: care clustered lighting decreased tactile stimulation minimized quiet environment promoted Bowel Elimination Promotion: adequate fluid intake promoted Sleep/Rest Enhancement: awakenings minimized room darkened relaxation techniques promoted regular sleep/rest pattern promoted Medication Review/Management: medications reviewed * Care Plan - Devora Bo - 11/12/2024 5:06 PM EDT Problem: Infection Goal: Absence of Infection Signs and Symptoms Outcome: Ongoing, Progressing Intervention: Prevent or Manage Infection Flowsheets (Taken 11/11/2024 2348 by Jonathan Vale, RN) Infection Management: aseptic technique maintained Fever Reduction/Comfort Measures: lightweight bedding Isolation Precautions: protective contact Note: IV antibiotics Problem: Fall Injury Risk Goal: Absence of Fall and Fall-Related Injury Outcome: Ongoing, Progressing Note: Staff assistance Problem: Pain Acute Goal: Optimal Pain Control and Function Outcome: Ongoing, Progressing Intervention: Prevent or Manage Pain Flowsheets (Taken 11/11/2024 2348 by Jonathan Vale RN) Sensory Stimulation Regulation: care clustered lighting decreased quiet environment promoted Medication Review/Management: medications reviewed * Consults - Anabel Ovalle RD - 11/12/2024 9:59 AM EDT Adult Nutrition Evaluation Note Bev Borja 64 y.o. male CSN: [id number] Room/Bed 682/[id number] Nutrition evaluation type: assessment Reason for evaluation: LOS Hospital course: 64 y.o. male with PMHx significant for COPD, CAD s/p PCI (on Xarelto) s/p pacemaker c/b left SANDIP pseudoaneurysm s/p thrombin injection 09/21/24, chronic limb ischemia s/p left femoralendarterectomy with external iliac/common femoral artery stenting 10/17/24, T2DM, HLD, HTN, RLS who presented to the [facility] on 11/05/2024 with problems with his wounds. Past medical/ surgical history: Past Medical History[1] Surgical History[2] Social history: Social History[3] Additional comments: Pt resting in bed, reports an improving appetite, some diarrhea yesterday but now appears resolved per pt. Pt reports some nausea with medications. Pt reports that some foods take longer to chew, but no difficulty otherwise. Pt states that wt prior to admission was 212# (~8.5% loss, severe if accurate), reports that he is drinking Boosts daily. Vitals and Basic Assessment: BP: (!) 170/88 Temp: 36.7 ??C (98.1 ??F) Oxygen Therapy: None (Room air) O2 Delivery Method: Face tent [place] Coma Scale Score: 15 Loi Scale Score: 20 Most Recent BM Date: 11/11/24 GI Symptoms: Diarrhea Allergies: NKFA per pt Medications: Current Scheduled Medications[4] Current PRN Medications[5] Meds were reviewed: Yes Labs: Lab Results Component Value Date GLUCOSE 122 (H) 11/11/2024 CALCIUM 7.6 (L) 11/11/2024 NA 137 11/11/2024 K 3.9 11/11/2024 CO2 20 (L) 11/11/2024 CL 110 (H) 11/11/2024 BUN 10 11/11/2024 CREATININE 0.82 11/11/2024 PHOS 3.2 11/06/2024 MG 2.2 11/06/2024 HGBA1C 7.6 (H) 11/06/2024 Anthropometrics: Height: 170.2 cm (5' 7 ) Weight: 88.1 kg (194 lb 3.6 oz) BMI (Calculated): 30.41 [place] Body Weight (kg): 67.3 Percent [place] Body Weight: 131 Adjusted Body Weight (kg): 72.5 Wt Readings from Last 10 Encounters: 11/11/24 88.1 kg (194 lb 3.6 oz) 10/18/24 93 kg (205 lb 0.4 oz) 09/21/24 93.5 kg (206 lb 2.1 oz) 10/07/22 95.5 kg (210 lb 9.6 oz) 10/18/21 93.7 kg (206 lb 9.1 oz) 08/02/21 93.3 kg (205 lb 9.6 oz) 03/28/19 84.9 kg (187 lb 4.5 oz) 01/31/19 85.3 kg (188 lb 2.6 oz) 06/28/18 84.8 kg (186 lb 15.9 oz) 10/27/16 77.6 kg (171 lb 0.2 oz) Estimated Needs: Kcal/ K-30 Kcal Provided: 0897-3856 Kcal Needs Based On: Adjusted weight Gm Protein/ Kg : 1.2-1.5 Protein Provided: 87-108 Protein Needs Based On: Adjusted weight Metabolic Cart Study Results: Current Nutrition Intake: Diet Order: Adult Diet Diet Texture: Regular Adult Carbohydrate Restriction: Consistent CHO 1 ([id number] Jatinder, 65 g/meal) Percent Meals Eaten (%): avg 63% x 6 emals Diet Experience and Nutrition History: Diet Education Provided: Will monitor Pertinent home medications: clopidogrel, docusate sodium, Lantus, Humalog, lisinopril, metoprolol tartrate, pravastatin, rivaroxaban, ropinirole, tamsulosin Lutheran needs: Nutrition Focused Physical Exam: Physical exam performed on (date): 11/12/24 [place] (muscles): Moderate Clavicle (muscle): None Shoulder (muscle): Mild Interosseous (muscle): None Thigh (muscle): None Calf (muscle): None Orbital (fat): None Triceps (fat): None Assessment of Malnutrition: Malnutrition Identified: Yes Meets Criteria For: Mild malnutrition In Context Of: Acute illness/ injury Based On: Mild muscle mass loss, Severe weight loss Present on Admission: Yes Nutrition Problem: Unintended weight loss related to inadequate oral intake, increased nutrient needs as evidenced by prior BW 212# as per pt, current BW 194# as documented. Status of Nutrition Diagnosis: New Increased nutrient needs protein related to increased metabolic demand as evidenced by wounds, infection. Status of Nutrition Diagnosis: New Nutrition Interventions and Recommendations: -Continue current diet -Boost Glucose Control TID -Monitor elytes -Please encourage PO intake and document in flowsheets Nutrition Monitoring and Goals: -Wt maintenance -PO intake >/= 75% most meals -Will monitor Nutrition labs, GI fxn, and skin integrity Acuity Level: 3 Anabel Ovalle, RD, LD [1] Past Medical History: Diagnosis Date Arthritis Old myocardial infarction History of myocardial infarction [2] Past Surgical History: Procedure Laterality Date ANKLE SURGERY Right CARDIAC PACEMAKER PLACEMENT CAROTID ENDARTERECTOMY N/A 2017 Endarterectomy Carotid Artery from [employer] CORONARY ANGIOPLASTY Left Coronary Angiography With Concomitant Left Heart Catheterization from [employer] CORONARY ARTERY BYPASS GRAFT N/A 2018 3V ELBOW SURGERY Right ENDARTERECTOMY Left 10/17/2024 common/SFA/Profunda thromboendarterectomy, EIA/OR ASSISTANT stent HERNIA REPAIR KNEE ARTHROSCOPY Left VASCULAR SURGERY Left 09/21/2024 OR ASSISTANT pseudoaneurym injection [3] Social History Tobacco Use Smoking status: Former Types: Cigarettes Passive exposure: Past Smokeless tobacco: Never Tobacco comments: Smoked 1-2 PPD for at least 30 years. Quit 2017 Vaping Use Vaping status: Never Used Substance Use Topics Alcohol use: Not Currently Comment: holidays/special occasions Drug use: Yes Types: Marijuana Comment: daily marijuana, 1-2 blunts/day [4] acetaminophen, 1,000 mg, Oral, q6h JUAN aspirin, 81 mg, Oral, Daily cefepime, 2 g, Intravenous, q8h insulin glargine-yfgn, 28 Units, Subcutaneous, Nightly insulin lispro, 0-10 Units, Subcutaneous, TID with meals insulin lispro, 0-3 Units, Subcutaneous, Twice at night lactobacillus acidophilus, 1 tablet, Oral, BID with meals lisinopril, 30 mg, Oral, Daily methocarbamol, 500 mg, Oral, 4x daily metoprolol tartrate, 100 mg, Oral, BID metroNIDAZOLE, 500 mg, Oral, TID mupirocin, 1 Application, Each Nostril, BID Povidone-Iodine, 1 Application, Nasal, Once pravastatin, 40 mg, Oral, Nightly rivaroxaban, 20 mg, Oral, Daily with dinner rOPINIRole, 2 mg, Oral, BID sodium chloride, 10 mL, Intravenous, q12h [COMPLETED] Insert peripheral IV, , , Once AND [COMPLETED] Saline lock IV, , , Once AND sodium chloride, 10 mL, Intravenous, q12h AND sodium chloride, 10 mL, Intravenous, PRN [COMPLETED] Insert peripheral IV, , , Once AND [COMPLETED] Saline lock IV, , , Once AND sodium chloride, 10 mL, Intravenous, q12h AND sodium chloride, 10 mL, Intravenous, PRN Sodium Hypochlorite, 1 Application, Irrigation, Daily tamsulosin, 0.4 mg, Oral, q PM vancomycin, 1,000 mg, Intravenous, q12h [5] PRN medications: glucose OR dextrose 10 % OR dextrose 10 % OR glucagon (human recombinant), hydrALAZINE, HYDROmorphone, labetalol, ondansetron ODT OR ondansetron OR ondansetron, oxyCODONE OR oxyCODONE, [COMPLETED] Insert peripheral IV AND [COMPLETED] Saline lock IV AND sodium chloride AND sodium chloride, [COMPLETED] Insert peripheral IV AND [COMPLETED]Saline lock IV AND sodium chloride AND sodium chloride, sodium chloride, sodium chloride * Progress Notes - Reid Daniels MD - 11/12/2024 9:04 AM EDT Images from the original note were not included. [facility] Department of Surgery Division of Vascular Surgery Surgery Progress Note 11/12/24 Bev Borja Subjective Subjective: HPI 64yoM PMHx COPD, T2DM, HLD, HTN, RLS, CAD s/p PCI (on Xarelto) s/p pacemaker c/b left SANDIP pseudoaneurysm s/p thrombin injection 09/21/24, CLI s/p left femoral endarterectomy with EIA/OR ASSISTANT stenting 10/17/24, who presented to [facility] 11/05/2024 with wound infection. 11/06/24: L groin/thigh washout and debridement. No arterial involvement noted. Interval: NAEO. Wound vac placed yesterday. Patient reports pain is well controlled. He continues to ambulate and have good PO intake. Wv on him, placement, might bleed Interval: FS 84 ->OJ-> FS 147. Edited by: Reid Daniels MD at 11/12/2024 0832 Review of Systems: Relevant review of systems was obtained as able and is negative unless stated above in HPI. Objective Objective: Vital signs: Vitals: 11/12/24 0807 BP: (!) 170/88 Pulse: 77 Resp: 16 Temp: 36.7 ??C (98.1 ??F) SpO2: 95% Physical Exam: HENT: Head: Normocephalic. Cardiovascular: Rate and Rhythm: Normal rate. Musculoskeletal: Comments: L groin and LLE with open wounds with wound vac in place and holding suction Neurological: Mental Status: He is alert. Intake/Output Summary (Last 24 hours) at 11/12/2024 0904 Last data filed at 11/12/2024 0330 Gross per 24 hour Intake 790 ml Output 400 ml Net 390 ml Lines/Drains/Tubes: Patient Lines/Drains/Airways Status Active Airway None Output by Drain (mL) 11/10/24 0700 - 11/10/24 1859 11/10/24 1900 - 11/11/24 0659 11/11/24 0700 - 11/11/24 1859 11/11/24 1900 - 11/12/24 0659 11/12/24 0700 - 11/12/24 0904 Patient has no LDAs of requested type [...] Results from last 7 days Lab Units 11/11/24 0056 11/10/24 0031 11/09/24 0415 HEMOGLOBIN g/dL 8.9* 9.1* 9.2* HEMATOCRIT % 27.2* 28.0* 28.3* INR Cr Results from last 7 days Lab Units 11/11/24 0112 11/10/24 0031 11/09/24 0415 CREATININE mg/dL 0.82 0.72 0.67* Lactate No lab exists for component: LACTTEVEN Radiographic Interpretation: No imagining today. Medications reviewed. Vital signs reviewed. Labs reviewed. Assessment/Plan Assessment and Plan: Bev Borja is a 64yo M PMHx COPD, T2DM, HLD, HTN, RLS, CAD s/p PCI (on Xarelto) s/p pacemaker c/b left SANDIP pseudoaneurysm s/p thrombin injection 09/21/24, CLI s/p left femoral endarterectomy with EIA/OR ASSISTANT stenting 10/17/24, who presented to [facility] 11/05/2024 with wound infection. POD # 2 s/p L groin/thigh washout and debridement. Discussed with ID and patient and patient refuses facility. Patient will be set up with local OSH for daily IV abx admin and wound care. Awaiting final sensitivities for DC. Plan: - Will need 4-6 weeks IV ABX and PICC. Will proceed with modified OPAT. - DC with two wound vacs- now in place with M/W/F changes - Transitioned to cefepime, flagyl, and vanc on 11/07- PICC placed 11/09, awaiting final ID abx recs - Continue SSI Edited by: Reid Daniels MD at 11/12/2024 0903 Dispo: Continue Current Level of Care Reid Daniels MD Cosigned by Neil Isaac MD at 11/16/2024 9:37 PM EDT Associated attestation - Neil Isaac MD - 11/16/2024 9:37 PM EDT I saw and evaluated the patient with the resident/fellow. I discussed the case with the resident/fellow and agree with the findings and plan as documented. * Progress Notes - Dotty Sethi MD - 11/12/2024 8:22 AM EDT Images from the original note were not included. GENERAL INFECTIOUS DISEASE PROGRESS NOTE Attending: Nathaly Nowak MD Subjective: NAEON. Pt reports that he is feeling well. He had some left groin pain after wound vac placement. His watery diarrhea has improved. Objective: Visit Vitals BP (!) 165/73 (BP Location: Left arm, Patient Position: Sitting) Pulse 67 Temp 36.8 ??C (98.3 ??F) (Oral) Resp 16 Ht 1.702 m (5' 7 ) Wt 88.1 kg (194 lb 3.6 oz) SpO2 97% BMI 30.42 kg/m?? Smoking Status Former BSA 2.04 m?? Physical Exam Constitutional: General: He is not in acute distress. Cardiovascular: Rate and Rhythm: Normal rate and regular rhythm. Pulmonary: Effort: Pulmonary effort is normal. Breath sounds: Normal breath sounds. Abdominal: Tenderness: There is no abdominal tenderness. Musculoskeletal: General: Normal range of motion. Skin: General: Skin is warm and dry. Comments: Wound vac present on left groin Neurological: General: No focal deficit present. Psychiatric: Mood and Affect: Mood normal. Labs: CBC WBC ?? Hb ?? Plt ?? Hct ?? ANC ?? BMP Na ?? Cl ?? BUN ?? Glu ?? K ?? Co2 ?? Cr ?? Mg ??, Phos ?? LFT AST ?? AlkPhos ?? T Prot ?? ALK ?? Bili ?? Alb ?? D.Bili ?? Results from last 7 days Lab Units 11/12/24 0948 CRP mg/L <3.0 Medications: Current Medications[1] Imaging/Studies: FL Less than 1 Hour Intraoperative Images were obtained for surgical purposes. See Terrell Gautam's surgical note in the patient's chart for the findings. Cardiac Device Check - PRE-OR Page Cardiology EP-Device Clinic: Pre-operative CIED Report Assessment and Sara-Procedural Reommendations: Name: Bev Borja Date: 10/17/2024 : 1960 Age: 64 y.o. 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 Lead integrity test [...] can be found in EPIC media file. Micro: Susceptibility data from last 90 days. Collected Specimen Info Organism Amoxicillin/Clavulanate Ampicillin Ampicillin/Sulbactam Aztreonam Cefazolin Cefepime Susceptibility Ciprofloxacin Ertapenem Gentamicin Levofloxacin Meropenem Piperacillin/Tazobactam 11/06/24 Tissue from Other (specify site) Staphylococcus pseudintermedius 11/06/24 Tissue from Other (specify site) Enterobacter cloacae complex R R R S R S S S S S S S Pasteurella stomatis Streptococcus mitis/oralis group 11/06/24 Tissue from Other (specify site) Sana parapsilosis 11/06/24 Swab from Other (specify site) Staphylococcus pseudintermedius Streptococcus mitis/oralis group 11/06/24 Swab from Other (specify site) Enterobacter cloacae complex Collected Specimen Info Organism Tetracycline Tobramycin Trimethoprim/Sulfamethoxazole 11/06/24 Tissue from Other (specify site) Staphylococcus pseudintermedius 11/06/24 Tissue from Other (specify site) Enterobacter cloacae complex S S S Pasteurella stomatis Streptococcus mitis/oralis group 11/06/24 Tissue from Other (specify site) Sana parapsilosis 11/06/24 Swab from Other (specify site) Staphylococcus pseudintermedius Streptococcus mitis/oralis group 11/06/24 Swab from Other (specify site) Enterobacter cloacae complex Results Procedure Component Value Units Date/Time Tissue Culture and Gram Stain [[id number]] (Abnormal) (Susceptibility) Collected: 11/06/24 1134 Order Status: Completed Specimen: Tissue from Other (specify site) Updated: 11/12/24 1334 Culture Moderate Growth 2+ Enterobacter cloacae complex Comment: This isolate has been identified using the FDA Approved [employer] System The organism value for this result has been updated. These results have been appended to the previously preliminary verified report. Edited result: Previously reported as Gram Negative Jesus on 11/07/2024 at 1434 EDT. 2+ Streptococcus mitis/oralis group Comment: This isolate has been identified using the FDA Approved [employer] CA System The organism value for this result has been updated. These results have been appended to the previously preliminary verified report. 2+ Pasteurella stomatis Comment: This result was determined by MALDI tof mass spectrometry using the [employer] database and is for research use only. The organism value for this result has been updated. These results have been appended to the previously preliminary verified report. Gram Stain Result Few Gram negative rods Moderate Polymorphonuclear leukocytes Few Gram positive cocci in pairs Narrative: PharmD Hunter Alberts requests penicillin, ceftriaxone and vancomycin on Streptococcus Susceptibility Enterobacter cloacae complex ANGÉLICA Amoxicillin/Clavulanate Resistant Ampicillin Resistant Ampicillin/Sulbactam Resistant Aztreonam Susceptible Cefazolin Resistant Cefepime Susceptible Ciprofloxacin Susceptible Ertapenem Susceptible Gentamicin Susceptible Levofloxacin Susceptible Meropenem Susceptible Piperacillin/Tazobactam Susceptible Tetracycline Susceptible Tobramycin Susceptible Trimethoprim/Sulfamethoxazole Susceptible Susceptibility Comments Enterobacter cloacae complex This organism may produce inducible or derepressed AmpC ??-lactamase, which can lead to treatment failure with third-generation cephalosporins (e.g., ceftriaxone, ceftazidime) despite apparent in vitro susceptibility. In serious infections (e.g., bacteremia), agents such as cefepime or carbapenems are preferred. Consider discussing with infectious disease or antimicrobial stewardship team. Comprehensive GI Panel by PCR [[id number]] (Normal) Collected: 11/12/24 0950 Order Status: Completed Specimen: Stool from Rectum Updated: 11/12/24 1300 Campylobacter PCR Result Not Detected Plesiomonas shigelloides PCR Result Not Detected Salmonella PCR Result Not Detected Vibrio species PCR Result Not Detected Vibrio cholerae PCR Result Not Detected Yersinia enterocolitica PCR Result Not Detected Enteroaggregative E. coli (EAEC) PCR Result Not Detected Enteropathogenic E. coli (EPEC) PCR Result Not Detected Enterotoxigenic E. coli (ETEC) lt/st PCR Result Not Detected Shiga-like Toxin-Producing E.coli (STEC) stx1/stx2 PCR Resu Not Detected E coli 0157 PCR Result Not Detected Shigella/Enteroinvasive E. coli (EIEC) PCR Result Not Detected Cryptosporidium PCR Result Not Detected Cyclospora cayetanensis PCR Result Not Detected Entamoeba histolytica PCR Result Not Detected Giardia duodenalis (aka Giardia lamblia) PCR Result Not Detected Adenovirus F 40/41 PCR Result Not Detected Astrovirus PCR Result Not Detected Norovirus GI/GII PCR Result Not Detected Rotavirus A PCR Result Not Detected Sapovirus PCR Result Not Detected Narrative: This specimen was tested for the following analytes: Campylobacter species, Plesiomonas shigelloides, Salmonella species, Vibrio species, Vibrio cholerae, Yersinia enterolitica, Enteroaggregative E. coli (EAEC), Enteropathogenic E. Coli (EPEC), Enterotoxigenic E. coli (ETEC), Shiga-like toxin-producing E. coli (STEC), Shigella/Enteroinvasive E. coli (EIEC), Cryptosporidium, Cyclospora cayetanensis, Entamoeba histolytica, Giardia lamblia, Adenovirus f40/41, Astrovirus, Norovirus GI/GII, Rotavirus A, and Sapovirus. Note: Clostridium difficile toxin a/b will no longer be resulted using this platform. Please order the Clostridium difficile by PCR assay if clinically indicated. Clostridiodes (Clostridium) difficile PCR [[id number]] (Normal) Collected: 11/12/24 0950 Order Status: Completed Specimen: Stool from Rectum Updated: 11/12/24 1154 C difficile PCR toxin B gene DNA Result Not Detected Narrative: This test is FDA approved for use with liquid stool specimens. This test is used for clinical purposes. It should not be regarded as investigational or for research. This laboratory is certified under the Clinical Laboratory Improvement Amendments of 1988 (CLIA-88) as qualified to perform high complexity clinical laboratory testing. Anaerobic Culture [[id number]] Collected: 11/06/24 1128 Order Status: Completed Specimen: Swab from Other (specify site) Updated: 11/12/24 1118 Culture No growth at day 4 Fungal Culture, Tissue and ISIDRO [[id number]] (Abnormal) Collected: 11/06/24 1134 Order Status: Completed Specimen: Tissue from Other (specify site) Updated: 11/12/24 1033 Culture Reading Mycological 4 Weeks Rare Bates Sana parapsilosis Comment: This isolate has been identified using the FDA Approved [employer] System The organism value for this result has been updated. These results have been appended to the previously preliminary verified report. Edited result: Previously reported as Yeast on 11/11/2024 at 1317 EDT. ISIDRO No fungal elements seen Additional Susceptibilities and/or Identification [[id number]] Collected: 11/11/24 1240 Order Status: Completed Specimen: Tissue from Wound (specify site): Additional Susceptibilities and/or Identification [[id number]] Collected: 11/11/24 1238 Order Status: Completed Specimen: Tissue from Wound (specify site): Additional Susceptibilities and/or Identification [[id number]] Collected: 11/11/24 1237 Order Status: Completed Specimen: Tissue from Wound (specify site): AFB Culture, Non Respiratory Source and Acid Fast Stain [[id number]] Collected: 11/06/24 1134 Order Status: Completed Specimen: Tissue from Other (specify site) Updated: 11/11/24 0938 AFB Culture No Mycobacterial Growth <1 Week Acid Fast Stain No acid fast bacilli seen Blood Culture (Aerobic/Anaerobet Set) [[id number]] Collected: 11/06/24 010 Order Status: Completed Specimen: Blood from AC, Left Updated: 11/11/24 0301 Culture No growth at day 5 Blood Culture (Aerobic/Anaerobet Set) [[id number]] Collected: 11/06/24106 Order Status: Completed Specimen: Blood from Hand, Right Updated: 11/11/24 0249 Culture No growth at day 5 Micro: BC x2 11/06: negative Wound culture 11/06: Enterobacter cloacae complex Tissue culture 11/06: Enterobacter cloacae complex, streptococcus mitis/oralis, pastuerella stomatis Anaerobic culture 11/06: Staphylococcus Pseudintermedius Fungal culture 11/06: rare colony sana parapsilosis Stool PCR 11/12: c diff neg, GI panel neg Antibiotics: Cefepime: 11/07 - P Metronidazole: 11/07 - P Vancomycin: 11/05 - P Zosyn: 11/05 - 11/07 Cefazolin: 11/06 Assessment: Patient Summary: Bev Borja is a 64 y.o. male with PMHx of COPD, CAD s/p PCI (on Xarelto) s/p pacemaker c/bleft SANDIP pseudoaneurysm s/p thrombin injection 09/21/24, chronic limb ischemia s/p left femoral endarterectomy with external iliac/common femoral artery stenting 10/17/24, T2DM, HLD, HTN who was transferred to ED on 11/05 after presenting to OSH due to increasing pain from femoral and leg incision sites from left femoral endarterectomy with external iliac/common femoral artery stenting performed on 10/17. In the ED, he was afebrile. WBC 11.3. 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 It did show wound with gas and fluid in the groin and knee and a 3 x 3 cm possible collection in the left groin. He was given Vancomycin and Zosyn at the OSH. On 11/06, pt went to the [facility] vascular surgery for left groin exploration and washout. ID was consulted for antibiotic recommendations. Pt is afebrile. WBC increasing (9.18 -> 10.27 -> 10.8 -> 11.83) He was initially started on vancomycin and zosyn while waiting for results of cultures. On 11/07, culture grew enterobacter cloacae complex. Vanc was continued. Zosyn stopped. Cefepime and PO flagyl started. Given likely arterial involvement and visualization of the patch in the wound bed, pt will require 6 weeks of IV abx. PICC line placed on 11/09. Following 6 weeks of IV abx, pt may need chronic suppression given presenceof prosthetic. Wound vac placed on 11/11. Pt had neg c diff and GI PCR on 11/12. Tissue culture growing enterobacter cloacae complex, streptococcus mitis/oralis, pastuerella stomatis. Anaerobic culture growing Staphylococcus Pseudintermedius. 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 OPAT evaluated: modified OPAT appropriate. Pt does not want to stay a facility, plan for [facility] daily IV abx. Plan for ID outpatient follow up, 11/29 at 2:[address] Appiah. ID Problem List: # L groin infection Recommendations: - Start Ertapenem, still awaiting susceptibilities on staph pseudintermedius for final recs - Start high dose micafungin - Continue vancomycin - Discontinue cefepime and po flagyl - Given likely arterial involvement and visualization of the patch in the wound bed, pt will require 6 weeks of IV abx and PICC line, with possible chronic suppresion. - OPAT evaluated: modified OPAT appropriate -plan for ID outpatient follow up, 11/29 at 2:[address] Appiah Thank you for allowing us to participate in this patient's care. GEN ID will continue to follow. Dotty Sethi MD PGY1 History, assessment, and plan discussed with ID attending [1] Current Facility-Administered Medications Medication Dose Route Frequency Provider Last Rate Last Admin acetaminophen (Tylenol) tablet 1,000 mg 1,000 mg Oral q6h [facility] Anthony Reyes MD 1,000 mg at 11/12/24 1356 aspirin chewable tablet 81 mg 81 mg Oral Daily Reid Daniels MD 81 mg at 11/12/24 0938 cefepime (Maxipime) 2 g in sodium chloride 0.9% 100 mL IVPB (vial adapter required) 2 g [id number] Reid Daniels MD 36.7 mL/hr at 11/12/24 1356 2 g at 11/12/24 1356 glucose (Glutose) 40 % oral gel 15-30 grams of glucose 15-30 grams of glucose Sublingual q15 min PRN Reid Daniels MD Or dextrose 10 % (D10W) bolus 125 mL 125 mL Intravenous q15 min PRN Reid Daniels MD Or dextrose 10 % (D10W) bolus 250 mL 250 mL Intravenous q15 min PRN Reid Daniels MD Or glucagon (human recombinant) injection 1 mg 1 mg Intramuscular q15 min PRN Reid Daniels MD hydrALAZINE (Apresoline) injection 10 mg 10 mg Intravenous q6h PRN Cande Cee MD 10 mg at 11/08/24 235 HYDROmorphone (Dilaudid) injection 0.5 mg 0.5 mg Intravenous q3h PRN Jerry Holcomb MD 0.5 mg at 11/11/24 1443 insulin glargine-yfgn 100 UNIT/ML injection 28 Units 28 Units Subcutaneous Nightly Reid Daniels MD 28Units at 11/11/242054 insulin lispro (Admelog) 100 units/mL injection - Correction - Resistant Dose 0- 10 Units Subcutaneous TID with meals Reid Daniels MD 4 Units at 11/12/241355 insulin lispro (Admelog) injection - Correction - Nighttime Dose 0-3 Units Subcutaneous Twice at night Reid Daniels MD 1 Units at 11/08/242021 labetalol (Normodyne,Trandate) injection 10 mg 10 mg Intravenous q6h PRN Cande Cee MD lactobacillus acidophilus (Floranex) tablet 1 tablet 1 tablet Oral BID with meals Gabriele Leong MD 1 tablet at 11/12/24 0938 lisinopril tablet 30 mg 30 mg Oral Daily Reid Daniels MD 30 mg at 11/12/24 0938 methocarbamol (Robaxin) tablet 500 mg 500 mg Oral 4x daily Anthony Reyes MD 500 mg at 11/12/24 1356 metoprolol tartrate (Lopressor) tablet 100 mg 100 mg Oral BID Anthony Reyes MD 100 mg at 11/12/24 0938 metroNIDAZOLE (Flagyl) tablet 500 mg 500 mg Oral TID Reid Daniels MD 500 mg at 11/12/24 0940 [START ON 11/13/2024] micafungin (Mycamine) 150 mg in sodium chloride 0.9 % 100 mL IVPB 150 mg Intravenous q24h Melecio Echevarria DO mupirocin (Bactroban) 2 % ointment 1 Application 1 Application Each Nostril BID Reid Daniels MD 1 Application at 11/12/24 0940 ondansetron ODT (Zofran-ODT) disintegrating tablet 4 mg 4 mg Oral q6h PRN Anthony Reyes MD Or ondansetron (Zofran) injection 4 mg 4 mg Intravenous q6h PRN Anthony Reyes MD Or ondansetron (Zofran) 4 MG/5ML solution 4 mg 4 mg Oral q6h PRN Anthony Reyes MD oxyCODONE (Roxicodone) immediate release tablet 5 mg 5 mg Oral q6h PRN Anthony Reyes MD 5 mg at 11/09/24 0031 Or oxyCODONE (Roxicodone) immediate release tablet 10 mg 10 mg Oral q6h PRN Anthony Reyes MD 10 mg at 11/11/24 2346 Povidone-Iodine 5 % swab solution 1 Application 1 Application Nasal Once Jerry Holcomb MD pravastatin (Pravachol) tablet 40 mg 40 mg Oral Nightly Anthony Reyes MD 40 mg at 11/11/242053 rivaroxaban (Xarelto) tablet 20 mg 20 mg Oral Daily with dinner Reid Daniels MD 20 mg at 11/11/24 1805 rOPINIRole (Requip) tablet 2 mg 2 mg Oral BID Anthony Reyes MD 2 mg at 11/12/24 0938 sodium chloride 0.9 % flush 10 mL 10 mL Intravenous q12h Anthony Reyes MD 10 mL at 11/12/24 1332 And sodium chloride 0.9 % flush 10 mL 10 mL Intravenous PRN Anthony Reyes MD sodium chloride 0.9 % flush 10 mL 10 mL Intravenous q12h Jerry Holcomb MD 10 mL at 11/12/24 0939 And sodium chloride 0.9 % flush 10 mL 10 mL Intravenous PRN Jerry Holcomb MD sodium chloride 0.9 % flush 10 mL 10 mL Intravenous q12h Reid Daniels MD 10 mL at 11/12/24 0222 sodium chloride 0.9 % flush 10 mL 10 mL Intravenous q1h PRN Reid Daniels MD sodium chloride 0.9 % flush 20 mL 20 mL Intravenous q1h PRN Reid Daniels MD Sodium Hypochlorite (Dakin's (HALF-Strength)) external solution 1 Application 1 Application Irrigation Daily Reid Daniels MD 1 Application at 11/11/24 0826 tamsulosin (Flomax) 24 hr capsule 0.4 mg 0.4 mg Oral q PM Anthony Reyes MD 0.4 mg at 633 Vancomycin HCl in NaCl (Vancocin) IVPB 1,000 mg 1,000 mg Intravenous q12h Reid Daniels MD 1,000 mg at11/12/24 0939 Cosigned by Vaishali Kraus MD at 11/13/2024 6:54 AM EDT Associated attestation - Vaishali Kraus MD - 11/13/2024 6:54 AM EDT I saw and evaluated the patient with the resident/fellow. I discussed the case with the resident/fellow and agree with the findings and plan as documented. Patient was pleasant this afternoon. He feels good about the outpatient plan. We will probably haveto send him home on micafungin as Rare Bates Sana parapsilosis grew and we do not have sensitivities back yet. Dr. Appiah may be able to switch that to high fluconazole when the sensitivities come back. We would like to see the strep sensitivies before sending him home. We do not have to wait on the yeast susceptibilities. Our goal if the strep/staph is susceptible is to send him on ertapenem for the bacteria and dayana for the yeast. We will continue to follow closely and hopefully this will be back soon so patient can live with once a day IV dosing. * Care Plan - Jonathan Vale RN - 11/11/2024 11:53 PM EDT Problem: Adult Inpatient Plan of Care Goal: Plan of Care Review 11/11/20242347 by Jonathan Vale RN Outcome: Ongoing, Progressing Flowsheets (Taken 11/11/20242347) Progress: improving Plan of Care Reviewed With: patient 11/11/20242336 by Jonathan Vale RN Outcome: Ongoing, Progressing Flowsheets Taken 11/11/20242336 by Jonathan Vale RN Progress: improving Taken 11/09/20242202 by Eber Hanson RN Plan of Care Reviewed With: patient Goal: Patient-Specific Goal (Individualized) 11/11/20242347 by Jonathan Vale RN Outcome: Ongoing, Progressing Flowsheets (Taken 11/11/20242199) Patient/Family-Specific Goals (Include Timeframe): patient will be free of injury during shift Individualized Care Needs: saftey Anxieties, Fears or Concerns: none expressed 11/11/20242336 by Jonathan Vale RN Outcome: Ongoing, Progressing Flowsheets (Taken 11/11/20242199) Patient/Family-Specific Goals (Include Timeframe): patient will be free of injury during shift Individualized Care Needs: saftey Anxieties, Fears or Concerns: none expressed Goal: Absence of Hospital-Acquired Illness or Injury 11/11/20242347 by Jonathan Vale RN Outcome: Ongoing, Progressing 11/11/20242336 by Jonathan Vale RN Outcome: Ongoing, Progressing Intervention: Identify and Manage Fall Risk Flowsheets (Taken 11/11/2024 2200) Safety Promotion/Fall Prevention: activity supervised clutter-free environment maintained room organization consistent safety round/check completed Intervention: Prevent Skin Injury Flowsheets (Taken 11/11/20242336) Body Position: weight shifting Skin Protection: protective footwear used incontinence pads utilized Intervention: Prevent and Manage VTE (Venous Thromboembolism) Risk Flowsheets (Taken 11/11/20242336) VTE Prevention/Management: SCDs (sequential compression devices) off Intervention: Prevent Infection Flowsheets (Taken 11/11/20242336) Infection Prevention: single patient room provided rest/sleep promoted Goal: Optimal Comfort and Wellbeing 11/11/20242347 by Jonathan Vale RN Outcome: Ongoing, Progressing 11/11/20242336 by Jonathan Vale RN Outcome: Ongoing, Progressing Intervention: Monitor Pain and Promote Comfort Flowsheets (Taken 11/11/20242336) Pain Management Interventions: medication (see MAR) Problem: Infection Goal: Absence of Infection Signs and Symptoms 11/11/20242347 by Jonathan Vale RN Outcome: Ongoing, Progressing 11/11/20242336 by Jonathan Vale RN Outcome: Ongoing, Progressing Intervention: Prevent or Manage Infection Flowsheets (Taken 11/11/20242347) Infection Management: aseptic technique maintained Fever Reduction/Comfort Measures: lightweight bedding Isolation Precautions: protective contact Problem: Comorbidity Management Goal: Maintenance of Asthma Control 11/11/20242347 by Jonathan Vale RN Outcome: Ongoing, Progressing 11/11/20242336 by Jonathan Vale RN Outcome: Ongoing, Progressing Intervention: Maintain Asthma Symptom Control Flowsheets (Taken 11/11/20242347) Medication Review/Management: medications reviewed Goal: Maintenance of Behavioral Health Symptom Control 11/11/20242347 by Jonathan Vale RN Outcome: Ongoing, Progressing 11/11/20242336 by Jonathan Vale RN Outcome: Ongoing, Progressing Intervention: Maintain Behavioral Health Symptom Control Flowsheets (Taken 11/11/20242347) Medication Review/Management: medications reviewed Goal: Maintenance of COPD Symptom Control 11/11/2024 2348 by Jonathan Vale RN Outcome: Ongoing, Progressing 11/11/2024 233 by Jonathan Vale RN Outcome: Ongoing, Progressing Intervention: Maintain COPD (Chronic Obstructive Pulmonary Disease) Symptom Control Flowsheets (Taken 11/11/2024 2348) Breathing Techniques/Airway Clearance: deep/controlled cough encouraged Medication Review/Management: medications reviewed Goal: Blood Glucose Level Within Target Range 11/11/2024 2348 by Jonathan Vale RN Outcome: Ongoing, Progressing 11/11/2024 233 by Jonathan Vale RN Outcome: Ongoing, Progressing Intervention: Monitor and Manage Glycemia Flowsheets (Taken 11/11/2024 234) Medication Review/Management: medications reviewed Goal: Maintenance of Heart Failure Symptom Control 11/11/2024 234 by Jonathan Vale RN Outcome: Ongoing, Progressing 11/11/2024 233 by Jonathan Vale RN Outcome: Ongoing, Progressing Intervention: Maintain Heart Failure Management Flowsheets (Taken 11/11/2024 2348) Medication Review/Management: medications reviewed Goal: Blood Pressure in Desired Range 11/11/20242347 by Jonathan Vale RN Outcome: Ongoing, Progressing 11/11/2024 233 by Jonathan Vale RN Outcome: Ongoing, Progressing Intervention: Maintain Blood Pressure Management Flowsheets (Taken 11/11/2024 2348) Medication Review/Management: medications reviewed Goal: Maintenance of Osteoarthritis Symptom Control 11/11/2024 234 by Jonathan Vale RN Outcome: Ongoing, Progressing 11/11/2024 2337 by Jonathan Vale RN Outcome: Ongoing, Progressing Intervention: Maintain Osteoarthritis Symptom Control Flowsheets (Taken 11/11/2024 2348) Activity Management: ambulated in room activity encouraged education provided Medication Review/Management: medications reviewed Goal: Bariatric Home Regimen Maintained 11/11/20242347 by Jonathan Vale RN Outcome: Ongoing, Progressing 11/11/2024 233 by Jonathan Vale RN Outcome: Ongoing, Progressing Intervention: Maintain and Manage Postbariatric Surgery Care Flowsheets (Taken 11/11/2024 2348) Medication Review/Management: medications reviewed Goal: Maintenance of Seizure Control 11/11/20242347 by Jonathan Vale RN Outcome: Ongoing, Progressing 11/11/20242336 by Jonathan Vale RN Outcome: Ongoing, Progressing Intervention: Maintain Seizure Symptom Control Flowsheets (Taken 11/11/20242347) Sensory Stimulation Regulation: care clustered lighting decreased quiet environment promoted Medication Review/Management: medications reviewed Seizure Precautions: activity supervised clutter-free environment maintained Problem: Fall Injury Risk Goal: Absence of Fall and Fall-Related Injury 11/11/20242347 by Jonathan Vale RN Outcome: Ongoing, Progressing 11/11/20242336 by Jonathan Vale RN Outcome: Ongoing, Progressing Intervention: Identify and Manage Contributors Flowsheets (Taken 11/11/20242347) Medication Review/Management: medications reviewed Self-Care Promotion: independence encouraged Intervention: Promote Injury-Free Environment Flowsheets (Taken 11/11/20242347) Safety Promotion/Fall Prevention: activity supervised lighting adjusted nonskid shoes/slippers when out of bed room organization consistent safety round/check completed Problem: Skin Injury Risk Increased Goal: Skin Health and Integrity 11/11/20242347 by Jonathan Vale RN Outcome: Ongoing, Progressing 11/11/20242336 by Jonathan Vale RN Outcome: Ongoing, Progressing Intervention: Optimize Skin Protection Flowsheets (Taken 11/11/20242347) Activity Management: ambulated in room activity encouraged education provided Pressure Reduction Techniques: frequent weight shift encouraged Pressure Reduction Devices: positioning supports utilized Skin Protection: protective footwear used incontinence pads utilized Head of Bed (HOB) Positioning: HOB elevated Intervention: Promote and Optimize Oral Intake Flowsheets (Taken 11/11/20242347) Oral Nutrition Promotion: physical activity promoted Nutrition Interventions: supplemental drinks provided Problem: Lower Extremity Revascularization Goal: Absence of Bleeding 11/11/20242347 by Jonathan Vale RN Outcome: Ongoing, Progressing 11/11/20242336 by Jonathan Vale RN Outcome: Ongoing, Progressing Intervention: Monitor and Manage Bleeding Flowsheets (Taken 11/11/20242347) Bleeding Management: movement restricted Goal: Effective Bowel Elimination 11/11/20242347 by Jonathan Vale RN Outcome: Ongoing, Progressing 11/11/20242336 by Jonathan Vale RN Outcome: Ongoing, Progressing Intervention: Enhance Bowel Motility and Elimination Flowsheets (Taken 11/11/20242347) Bowel Elimination Management: relaxation techniques promoted hygiene measures promoted toileting offered Bowel Motility Enhancement: ambulation promoted Goal: Fluid and Electrolyte Balance 11/11/20242347 by Jonathan Vale RN Outcome: Ongoing, Progressing 11/11/20242336 by Jonathan Vale RN Outcome: Ongoing, Progressing Intervention: Monitor and Manage Fluid and Electrolyte Balance Flowsheets (Taken 11/11/20242347) Fluid/Electrolyte Management: fluids provided Goal: Absence of Infection Signs and Symptoms 11/11/20242347 by Jonathan Vale RN Outcome: Ongoing, Progressing 11/11/20242336 by Jonathan Vale RN Outcome: Ongoing, Progressing Intervention: Prevent or Manage Infection Flowsheets (Taken 11/11/20242347) Infection Management: aseptic technique maintained Fever Reduction/Comfort Measures: lightweight bedding Goal: Anesthesia/Sedation Recovery 11/11/20242347 by Jonathan Vale RN Outcome: Ongoing, Progressing 11/11/20242336 by Jonathan Vale RN Outcome: Ongoing, Progressing Intervention: Optimize Anesthesia Recovery Flowsheets (Taken 11/11/20242347) Stabilization Measures: legs elevated Safety Promotion/Fall Prevention: activity supervised lighting adjusted nonskid shoes/slippers when out of bed room organization consistent safety round/check completed Goal: Optimal Pain Control and Function 11/11/20242347 by Jonathan Vale RN Outcome: Ongoing, Progressing 11/11/20242336 by Jonathan Vale RN Outcome: Ongoing, Progressing Intervention: Prevent or Manage Pain Flowsheets (Taken 11/11/20242347) Pain Management Interventions: medication (see MAR) Diversional Activities: television smartphone Goal: Nausea and Vomiting Relief 11/11/20242347 by Jonathan Vale RN Outcome: Ongoing, Progressing 11/11/20242336 by Jonathan Vale RN Outcome: Ongoing, Progressing Goal: Effective Urinary Elimination 11/11/20242347 by Jontahan Vale RN Outcome: Ongoing, Progressing 11/11/20242336 by Jonathan Vale RN Outcome: Ongoing, Progressing Intervention: Monitor and Manage Urinary Retention Flowsheets (Taken 11/11/20242347) Urinary Elimination Promotion: toileting offered Goal: Effective Oxygenation and Ventilation 11/11/20242347 by Jonathan Vale RN Outcome: Ongoing, Progressing 11/11/20242336 by Jonathan Vale RN Outcome: Ongoing, Progressing Intervention: Optimize Oxygenation and Ventilation Flowsheets (Taken 11/11/20242347) Airway/Ventilation Management: airway patency maintained position adjusted Head of Bed (HOB) Positioning: HOB elevated Goal: Effective Tissue Perfusion 11/11/20242347 by Jonathan Vale RN Outcome: Ongoing, Progressing 11/11/20242336 by Jonathan Vale RN Outcome: Ongoing, Progressing Intervention: Optimize Tissue Perfusion Flowsheets (Taken 11/11/20242347) Body Position: weight shifting Pressure Reduction Devices: positioning supports utilized Problem: Diabetes Goal: Optimal Coping 11/11/20242347 by Jonathan Vale RN Outcome: Ongoing, Progressing 11/11/20242336 by Jonathan Vale RN Outcome: Ongoing, Progressing Intervention: Support Wellbeing and Self-Management Success Flowsheets (Taken 11/11/20242347) Supportive Measures: decision-making supported Family/Support System Care: self-care encouraged Goal: Optimal Functional Ability 11/11/20242347 by Jonathan Vale RN Outcome: Ongoing, Progressing 11/11/20242336 by Jonathan Vale RN Outcome: Ongoing, Progressing Intervention: Optimize Functional Ability Flowsheets (Taken 11/11/20242347) Activity Management: ambulated in room activity encouraged education provided Activity Assistance Provided: assistance, stand-by Self-Care Promotion: independence encouraged Goal: Blood Glucose Level Within Target Range 11/11/20242347 by Jonathan Vale RN Outcome: Ongoing, Progressing 11/11/20242336 by Jonathan Vale RN Outcome: Ongoing, Progressing Intervention: Optimize Glycemic Control Flowsheets (Taken 11/11/2024 2348) Hyperglycemia Management: blood glucose monitored Goal: Minimize Hypoglycemia Risk Outcome: Ongoing, Progressing Intervention: Minimize and Manage Hypoglycemia Flowsheets (Taken 11/11/2024 2348) Hypoglycemia Management: blood glucose monitored * Care Plan - Yazmin Bhatt RN - 11/11/2024 4:17 PM EDT Problem: Adult Inpatient Plan of Care Goal: Absence of Hospital-Acquired Illness or Injury Outcome: Ongoing, Progressing Intervention: Prevent Infection Flowsheets (Taken 11/11/2024 161) Infection Prevention: environmental surveillance performed rest/sleep promoted single patient room provided Goal: Optimal Comfort and Wellbeing Outcome: Ongoing, Progressing Intervention: Monitor Pain and Promote Comfort Flowsheets (Taken 11/11/20241614) Pain Management Interventions: position adjusted pillow support provided Problem: Infection Goal: Absence of Infection Signs and Symptoms Outcome: Ongoing, Progressing Intervention: Prevent or Manage Infection Flowsheets Taken 11/11/20241614 by Yazmin Bhatt RN Fever Reduction/Comfort Measures: lightweight clothing Taken 11/11/2024 0800 by Yazmin Bhatt RN Isolation Precautions: protective Taken 11/10/20242222 by Eber Hanson RN Infection Management: aseptic technique maintained Problem: Fall Injury Risk Goal: Absence of Fall and Fall-Related Injury Outcome: Ongoing, Progressing Intervention: Identify and Manage Contributors Flowsheets (Taken 11/11/2024 161) Medication Review/Management: medications reviewed Self-Care Promotion: BADL personal objects within reach adaptive equipment use encouraged independence encouraged Problem: Skin Injury Risk Increased Goal: Skin Health and Integrity Outcome: Ongoing, Progressing Intervention: Optimize Skin Protection Flowsheets Taken 11/11/20241614 by Yazmin Bhatt RN Activity Management: activity adjusted per tolerance Pressure Reduction Techniques: frequent weight shift encouraged Head of Bed (HOB) Positioning: HOB elevated Taken 11/10/20242222 by Eber Hanson RN Pressure Reduction Devices: positioning supports utilized * Procedures - Reid Daniels MD - 11/11/2024 2:00 PM EDTAssociated Order(s): Wound Vac Placement 2 Wounds Associated Post-Procedure Diagnose(s): Wound infection Wound Vac Placement 2 Wounds Associated Performed by: Reid Daniels MD Authorized by: Nathaly Nwoak MD Associated wounds: Wound 10/17/24 Surgical Open Surgical Incision Groin Left Wound 10/17/24 Surgical Open Surgical Incision Left;Lower Consent: Consent obtained: Verbal DME Vac: Yes Procedure details: Foam Removed (Pieces): 0 Foam Placed (Pieces): 3 Length (cm): 10 Width (cm): 7 Depth (cm): 6.5 Calc Area (square cm): 70 Foam Applied: Black Polyurethane Foam and White Polyvinyl Foam Therapy: Continuous Pressure (mmHg): 125 Patient tolerance of procedure: Tolerated well, no immediate complications Consent: Consent obtained: Verbal DME Vac: Yes Procedure details: Foam Removed (Pieces): 0 Foam Placed (Pieces): 3 Length (cm): 8 Width (cm): 2 Depth (cm): 3 Calc Area (square cm): 70 Foam Applied: Black Polyurethane Foam and White Polyvinyl Foam Therapy: Continuous Pressure (mmHg): 125 Patient tolerance of procedure: Tolerated well, no immediate complications Cosigned by Neil Isaac MD at 11/11/2024 6:42 PM EDT Associated attestation - Neil Isaac MD - 11/11/2024 6:42 PM EDT I was present during all critical and linares portions of the procedure(s) and [facility]. See resident note for details. * Progress Notes - Mariia Macedo - 11/11/2024 1:10 PM EDT Case Management Adult Progress Note Bev Borja 64 y.o. male CSN: [id number] Admission: 11/05/2024 9:45 PM Primary Problem: Wound infection Patient refusing inpatient placement for IV abx. [facility] can provide treatment. Face sheet, IV abx orders, and order for PICC care/labs/dressing changes need to be faxed to [phone]. Voicemail left with wound care clinic. Wound vac approved per , delivery pending. [facility]ale continue to follow. Mariia Macedo BEL[employer] CLE[employer]ER * Progress Notes - Dotty Sethi MD - 11/11/2024 10:01 AM EDT Images from the original note were not included. GENERAL INFECTIOUS DISEASE PROGRESS NOTE Attending: Nathaly Nowak MD Subjective: NAEON. Pt reports that he is feeling well and has had no left groin pain for the last couple of days. Pt would like to go home to receive IV abx and does not want to go to a facility. He reports watery diarrhea for the past few days. Objective: Visit Vitals BP (!) 145/55 Pulse 74 Temp 36.9 ??C (98.4 ??F) (Oral) Resp 16 Ht 1.702 m (5' 7 ) Wt 88.1 kg (194 lb 3.6 oz) SpO2 97% BMI 30.42 kg/m?? Smoking Status Former BSA 2.04 m?? Physical Exam Constitutional: General: He is not in acute distress. Cardiovascular: Rate and Rhythm: Normal rate and regular rhythm. Pulmonary: Effort: Pulmonary effort is normal. Breath sounds: Normal breath sounds. Abdominal: Tenderness: There is no abdominal tenderness. Musculoskeletal: General: Normal range of motion. Skin: General: Skin is warm and dry. Comments: Bandage present on left groin Neurological: General: No focal deficit present. Psychiatric: Mood and Affect: Mood normal. Labs: CBC WBC 11.83 (H) Hb 8.9 (L) Plt 444 (H) Hct 27.2 (L) ANC ?? BMP Na 137 Cl 110 (H) BUN 10 Glu 122 (H) K 3.9 Co2 20 (L) Cr 0.82 Mg ??, Phos ?? LFT AST ?? AlkPhos ?? T Prot ?? ALK ?? Bili ?? Alb ?? D.Bili ?? Medications: Current Medications[1] Imaging/Studies: FL Less than 1 Hour Intraoperative Images were obtained for surgical purposes. See Terrell Gautam's surgical note in the patient's chart for the findings. Cardiac Device Check - PRE-OR Page Cardiology EP-Device Clinic: Pre-operative CIED Report Assessment and Sara-Procedural Reommendations: Name: Bev Borja Date: 10/17/2024 : 1960 Age: 64 y.o. 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 Lead integrity test [...] can be found in EPIC media file. Micro: Susceptibility data from last 90 days. Collected Specimen Info Organism Amoxicillin/Clavulanate Ampicillin Ampicillin/Sulbactam Aztreonam Cefazolin Cefepime Susceptibility Ciprofloxacin Ertapenem Gentamicin Levofloxacin Meropenem Piperacillin/Tazobactam 11/06/24 Tissue from Other (specify site) Mixed skin clifton 11/06/24 Tissue from Other (specify site) Enterobacter cloacae complex R R R S R S S S S S S S Pasteurella stomatis Streptococcus mitis/oralis group 11/06/24 Swab from Other (specify site) Mixed skin clifton 11/06/24 Swab from Other (specify site) Enterobacter cloacae complex Collected Specimen Info Organism Tetracycline Tobramycin Trimethoprim/Sulfamethoxazole 11/06/24 Tissue from Other (specify site) Mixed skin clifton 11/06/24 Tissue from Other (specify site) Enterobacter cloacae complex S S S Pasteurella stomatis Streptococcus mitis/oralis group 11/06/24 Swab from Other (specify site) Mixed skin clifton 11/06/24 Swab from Other (specify site) Enterobacter cloacae complex Results Procedure Component Value Units Date/Time AFB Culture, Non Respiratory Source and Acid Fast Stain [[id number]] Collected: 11/06/24 1134 Order Status: Completed Specimen: Tissue from Other (specify site) Updated: 11/11/24 0938 AFB Culture No Mycobacterial Growth <1 Week Acid Fast Stain No acid fast bacilli seen Blood Culture (Aerobic/Anaerobet Set) [[id number]] Collected: 11/06/24106 Order Status: Completed Specimen: Blood from AC, Left Updated: 11/11/24 0301 Culture No growth at day 5 Blood Culture (Aerobic/Anaerobet Set) [[id number]] Collected: 11/06/24106 Order Status: Completed Specimen: Blood from Hand, Right Updated: 11/11/24 0249 Culture No growth at day 5 Anaerobic Culture [[id number]] Collected: 11/06/241127 Order Status: Completed Specimen: Swab from Other (specify site) Updated: 11/10/24 1441 Culture No growth at day 4 Routine Culture and Gram Stain [[id number]] Collected: 11/06/241127 Order Status: Completed Specimen: Swab from Other (specify site) Updated: 11/10/24 112 Culture No growth at day 4 Gram Stain Result No organisms seen No polymorphonuclear leukocytes seen Anaerobic Culture [[id number]] (Abnormal) Collected: 11/06/241128 Order Status: Completed Specimen: Swab from Other (specify site) Updated: 11/10/24 0718 Culture No anaerobes isolated Mixed skin clifton Comment: The organism value for this result has been updated. These results have been appended to the previously preliminary verified report. Narrative: Mixed Skin Clifton includes Streptococcus mitis/oralis group and Staphylococcus Pseudintermedius Anaerobic Culture [[id number]] (Abnormal) Collected: 11/06/24 1134 Order Status: Completed Specimen: Tissue from Other (specify site) Updated: 11/10/24 0718 Culture No anaerobes isolated Mixed skin clifton Comment: The organism value for this result has been updated. These results have been appended to the previously preliminary verified report. Narrative: Mixed Skin Clifton includes Streptococcus mitis/oralis group and Staphylococcus Pseudintermedius Micro: BC x2 11/06: negative Wound culture 11/06: Enterobacter cloacae complex Tissue culture 11/06: Enterobacter cloacae complex, streptococcus mitis/oralis, pastuerella stomatis Anaerobic culture: mixed skin clifton (Streptococcus mitis/oralis group and Staphylococcus Pseudintermedius) Antibiotics: Cefepime: 11/07 - P Metronidazole: 11/07 - P Vancomycin: 11/05 - P Zosyn: 11/05 - 11/07 Cefazolin: 11/06 Assessment: Patient Summary: Bev Borja is a 64 y.o. male with PMHx of COPD, CAD s/p PCI (on Xarelto) s/p pacemaker c/bleft SANDIP pseudoaneurysm s/p thrombin injection 09/21/24, chronic limb ischemia s/p left femoral endarterectomy with external iliac/common femoral artery stenting 10/17/24, T2DM, HLD, HTN who was transferred to ED on 11/05 after presenting to OSH due to increasing pain from femoral and leg incision sites from left femoral endarterectomy with external iliac/common femoral artery stenting performed on 10/17. In the ED, he was afebrile. WBC 11.3. 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 It did show wound with gas and fluid in the groin and knee and a 3 x 3 cm possible collection in the left groin. He was given Vancomycin and Zosyn at the OSH. On 11/06, pt went to the [facility] vascular surgery for left groin exploration and washout. ID was consulted for antibiotic recommendations. Pt is afebrile. WBC increasing (9.18 -> 10.27 -> 10.8 -> 11.83) He was initially started on vancomycin and zosyn while waiting for results of cultures. On 11/07, culture grew enterobacter cloacae complex. Vanc was continued. Zosyn stopped. Cefepime and PO flagyl started. We would recommend continuing the vancomycin, cefepime and po flagyl. Given likely arterial involvement and visualization of the patch in the wound bed, pt will require 6 weeks of IV abx. PICC line placed on 11/09. Following 6 weeks of IV abx, pt may need chronic suppression given presence of prosthetic. Awaiting susceptibilities regarding strep mitis susceptibilities. Requesting further workup from micro lab for mixed skin clifton (Streptococcus mitis/oralis group and Staphylococcus Pseudintermedius) on the anaerobic culture. OPAT evaluated: modified OPAT appropriate. Pt does not want to stay a facility, details regarding discharge placement still in discussion. Plan for ID outpatient follow up, 11/29 at 2:[address] Appiah. ID Problem List: #Left Groin Wound Recommendations: - await for strep mitis susceptibilities and anaerobic culture mixed skin clifton. - Continue vancomycin, cefepime and po flagyl - Given likely arterial involvement and visualization of the patch in the wound bed, pt will require 6 weeks of IV abx and PICC line, with possible chronic suppresion. - OPAT evaluated: modified OPAT appropriate, details regarding discharge placement still in discussion -plan for ID outpatient follow up, 11/29 at 2:[address] Appiah Thank you for allowing us to participate in this patient's care. GEN ID will continue to follow. Dotty Sethi MD PGY1 History, assessment, and plan discussed with ID attending [1] Current Facility-Administered Medications Medication Dose Route Frequency Provider Last Rate Last Admin acetaminophen (Tylenol) tablet 1,000 mg 1,000 mg Oral q6h [facility] Anthony Reyes MD 1,000 mg at 11/10/24 1741 aspirin chewable tablet 81 mg 81 mg Oral Daily Reid Daniels MD 81 mg at 11/11/24 0825 cefepime (Maxipime) 2 g in sodium chloride 0.9% 100 mL IVPB (vial adapter required) 2 g [id number] Reid Daniels MD 36.7 mL/hr at 11/11/24 0943 2 g at 11/11/24 0943 glucose (Glutose) 40 % oral gel 15-30 grams of glucose 15-30 grams of glucose Sublingual q15 min PRN Reid Daniels MD Or dextrose 10 % (D10W) bolus 125 mL 125 mL Intravenous q15 min PRN Reid Daniels MD Or dextrose 10 % (D10W) bolus 250 mL 250 mL Intravenous q15 min PRN Reid Daniels MD Or glucagon (human recombinant) injection 1 mg 1 mg Intramuscular q15 min PRN Reid Daniels MD hydrALAZINE (Apresoline) injection 10 mg 10 mg Intravenous q6h PRN Cande Cee MD 10 mg at 11/08/24 2352 HYDROmorphone (Dilaudid) injection 0.5 mg 0.5 mg Intravenous q3h PRN Jerry Holcomb MD insulin glargine-yfgn 100 UNIT/ML injection 28 Units 28 Units Subcutaneous Nightly Reid Daniels MD 28Units at 11/10/242010 insulin lispro (Admelog) 100 units/mL injection - Correction - Resistant Dose 0- 10 Units Subcutaneous TID with meals Reid Daniels MD 2 Units at 11/10/241651 insulin lispro (Admelog) injection - Correction - Nighttime Dose 0-3 Units Subcutaneous Twice at night Reid Daniels MD 1 Units at 11/08/242021 labetalol (Normodyne,Trandate) injection 10 mg 10 mg Intravenous q6h PRN Cande Cee MD [START ON 11/12/2024] lisinopril tablet 30 mg 30 mg Oral Daily Reid Daniels MD methocarbamol (Robaxin) tablet 500 mg 500 mg Oral 4x daily Anthony Reyes MD 500 mg at 11/11/24 08 metoprolol tartrate (Lopressor) tablet 100 mg 100 mg Oral BID Anthony Reyes MD 100 mg at 11/11/24 08 metroNIDAZOLE (Flagyl) tablet 500 mg 500 mg Oral TID Reid Daniels MD 500 mg at 11/11/24 0826 mupirocin (Bactroban) 2 % ointment 1 Application 1 Application Each Nostril BID Reid Daniels MD 1 Application at 11/11/24 0825 ondansetron ODT (Zofran-ODT) disintegrating tablet 4 mg 4 mg Oral q6h PRN Anthony Reyes MD Or ondansetron (Zofran) injection 4 mg 4 mg Intravenous q6h PRN Anthony Reyes MD Or ondansetron (Zofran) 4 MG/5ML solution 4 mg 4 mg Oral q6h PRN Anthony Reyes MD oxyCODONE (Roxicodone) immediate release tablet 5 mg 5 mg Oral q6h PRN Anthony Reyes MD 5 mg at 11/09/24 0031 Or oxyCODONE (Roxicodone) immediate release tablet 10 mg 10 mg Oral q6h PRN Anthony Reyes MD 10 mg at 11/07/24 2330 Povidone-Iodine 5 % swab solution 1 Application 1 Application Nasal Once Jerry Holcomb MD pravastatin (Pravachol) tablet 40 mg 40 mg Oral Nightly Anthony Reyes MD 40 mg at 11/10/242010 rivaroxaban (Xarelto) tablet 20 mg 20 mg Oral Daily with dinner Reid Daniels MD 20 mg at 11/10/241740 rOPINIRole (Requip) tablet 2 mg 2 mg Oral BID Anthony Reyes MD 2 mg at 11/11/24825 sodium chloride 0.9 % flush 10 mL 10 mL Intravenous q12h Anthony Reyes MD 10 mL at 11/11/24 0024 And sodium chloride 0.9 % flush 10 mL 10 mL Intravenous PRN Anthony Reyes MD sodium chloride 0.9 % flush 10 mL 10 mL Intravenous q12h Jerry Holcomb MD 10 mL at 11/11/24825 And sodium chloride 0.9 % flush 10 mL 10 mL Intravenous PRN Jerry Holcomb MD sodium chloride 0.9 % flush 10 mL 10 mL Intravenous q12h Reid Daniels MD 10 mL at 11/11/24 0354 sodium chloride 0.9 % flush 10 mL 10 mL Intravenous q1h PRN Reid Daniels MD sodium chloride 0.9 % flush 20 mL 20 mL Intravenous q1h PRN Reid Daniels MD Sodium Hypochlorite (Dakin's (HALF-Strength)) external solution 1 Application 1 Application Irrigation Daily Reid Daniels MD 1 Application at 11/11/24825 tamsulosin (Flomax) 24 hr capsule 0.4 mg 0.4 mg Oral q PM Anthony Reyes MD 0.4 mg at 647 Vancomycin HCl in NaCl (Vancocin) IVPB 1,000 mg 1,000 mg Intravenous q12h Reid Daniels MD 1,000 mg at11/11/24824 Cosigned by Vaihsali Kraus MD at 11/11/2024 10:02 PM EDT Associated attestation - Vaishali Kraus MD - 11/11/2024 10:02 PM EDT I saw and evaluated the patient with the resident/fellow. I discussed the case with the resident/fellow and agree with the findings and plan as documented. Patient was engaged with nursing care when I went by his room today. We have called the lab to try to get more information regarding his strep species and the anaerobic culture. I would like to try to send him home on one abx but am waiting for the final on strep/anaerobic cx sensitivities . It will be important for him to get antibiotics everyday of the week. I will try to talk with him again tomorrow to summarize the abx plan. Social work and opat met with him today to try to resolve his issues in administering his iv abx at home or near home on a daily basis. His start date will be 11/06 and will plan on treatment for 6 weeks. His follow up with Dr. Appiah is 11/29 at 2:30. Please make sure he calls [facility] transport if needs it ( must be called 3 or 4 days prior to appt ). Please obtain a crp as baseline and then will need cbc/diff, cmp and crp weekly. * Progress Notes - Reid Daniels MD - 11/11/2024 8:52 AM EDT Images from the original note were not included. [facility] Department of Surgery Division of Vascular Surgery Surgery Progress Note 11/11/24 Bev Borja Subjective Subjective: HPI 64yoM PMHx COPD, T2DM, HLD, HTN, RLS, CAD s/p PCI (on Xarelto) s/p pacemaker c/b left SANDIP pseudoaneurysm s/p thrombin injection 09/21/24, CLI s/p left femoral endarterectomy with EIA/OR ASSISTANT stenting 10/17/24, who presented to [facility] 11/05/2024 with wound infection. 11/06/24: L groin/thigh washout and debridement. No arterial involvement noted. Interval: NAEO. Patient's dressing changed today. He reports continued good PO intake. He is ambulating halls daily. Continues to be hypertensive with SBP to 180s. Edited by: Reid Daniels MD at 11/11/2024 0801 Review of Systems: Relevant review of systems was obtained as able and is negative unless stated above in HPI. Objective Objective: Vital signs: Vitals: 11/11/24 0751 BP: (!) 183/71 Pulse: 74 Resp: 16 Temp: 36.9 ??C (98.4 ??F) SpO2: 97% Physical Exam: Physical Exam HENT: Head: Normocephalic. Cardiovascular: Rate and Rhythm: Normal rate. Musculoskeletal: Comments: L groin and LLE with open wounds, no purulence or erythema. Packing in place. Neurological: Mental Status: He is alert. Intake/Output Summary (Last 24 hours) at 11/11/2024 0852 Last data filed at 11/11/2024 0254 Gross per 24 hour Intake 1196 ml Output 0 ml Net 1196 ml Lines/Drains/Tubes: Patient Lines/Drains/Airways Status Active Airway None Output by Drain (mL) 11/09/24 0700 - 11/09/24 1859 11/09/24 1900 - 11/10/24 0659 11/10/24 0700 - 11/10/24 1859 11/10/24 1900 - 11/11/24 0659 11/11/24 0700 - 11/11/24 0852 Patient has no LDAs of requested type attached. Labs in last 18 hours: CBC WBC 11.83 (H) Hb 8.9 (L) Plt 444 (H) Hct 27.2 (L) ANC ?? INR ??, PTT ??, Anti-Xa ?? MCV 92 BMP Na 137 Cl 110 (H) BUN 10 Glu 122 (H) K 3.9 Co2 20 (L) Cr 0.82 Ca 7.6 (L) iCa ?? Mg ??, Phos ?? Lactate ?? LFT AST ?? AlkPhos ?? T Prot ?? ALK ?? Bili ?? Alb ?? D.Bili ?? Lab Trends: H/H Results from last 7 days Lab Units 11/11/24 0056 11/10/24 0031 11/09/24 0415 HEMOGLOBIN g/dL 8.9* 9.1* 9.2* HEMATOCRIT % 27.2* 28.0* 28.3* INR Cr Results from last 7 days Lab Units 11/11/24 0112 11/10/24 0031 11/09/24 0415 CREATININE mg/dL 0.82 0.72 0.67* Lactate No lab exists for component: LACTTEVEN Radiographic Interpretation: No imagining today. Medications reviewed. Vital signs reviewed. Labs reviewed. Assessment/Plan Assessment and Plan: Bev Borja is a 64yo M PMHx COPD, T2DM, HLD, HTN, RLS, CAD s/p PCI (on Xarelto) s/p pacemaker c/b left SANDIP pseudoaneurysm s/p thrombin injection 09/21/24, CLI s/p left femoral endarterectomy with EIA/OR ASSISTANT stenting 10/17/24, who presented to [facility] 11/05/2024 with wound infection. POD # 2 s/p L groin/thigh washout and debridement. Discussed with ID and patient and he will require a facility for outpatient IV abx due to lack of support system at home. Plan: - Will need 4-6 weeks IV ABX and PICC. Will proceed with modified OPAT. - DC with two wound vacs - Transitioned to cefepime, flagyl, and vanc on 11/07- PICC placed 11/09, awaiting final ID abx recs - Increase home Lisinopril - Wound care: packed wet to dry dressing with Dakins. AM changes per vascular, PM changes per RN. - Continue SSI Edited by: Reid Daniels MD at 11/11/2024 0843 Dispo: Continue Current Level of Care Reid Daniels MD Cosigned by Neil Isaac MD at 11/11/2024 6:40 PM EDT Associated attestation - Neil Isaac MD - 11/11/2024 6:40 PM EDT I saw and evaluated the patient with the resident/fellow. I discussed the case with the resident/fellow and agree with the findings and plan as documented. * Care Plan - Eber Hanson RN - 11/10/2024 10:27 PM EDT Problem: Adult Inpatient Plan of Care Goal: Plan of Care Review Outcome: Ongoing, Progressing Flowsheets Taken 11/10/20242222 Progress: improving Taken 11/09/20242202 Plan of Care Reviewed With: patient Goal: Patient-Specific Goal (Individualized) Outcome: Ongoing, Progressing Goal: Absence of Hospital-Acquired Illness or Injury Outcome: Ongoing, Progressing Intervention: Identify and Manage Fall Risk Flowsheets (Taken 11/10/20241999) Safety Promotion/Fall Prevention: activity supervised assistive device/personal items within reach clutter-free environment maintained fall prevention program maintained lighting adjusted mobility aid in reach nonskid shoes/slippers when out of bed safety round/check completed Intervention: Prevent Skin Injury Flowsheets (Taken 11/10/20242222) Body Position: weight shifting Skin Protection: protective footwear used Intervention: Prevent and Manage VTE (Venous Thromboembolism) Risk Flowsheets (Taken 11/10/20241999) VTE Prevention/Management: SCDs (sequential compression devices) off medication Intervention: Prevent Infection Flowsheets (Taken 11/09/2024 0101) Infection Prevention: cohorting utilized hand hygiene promoted rest/sleep promoted single patient room provided Goal: Optimal Comfort and Wellbeing Outcome: Ongoing, Progressing Problem: Infection Goal: Absence of Infection Signs and Symptoms Outcome: Ongoing, Progressing Intervention: Prevent or Manage Infection Flowsheets Taken 11/10/20242222 Infection Management: aseptic technique maintained Fever Reduction/Comfort Measures: lightweight bedding lightweight clothing fluid intake increased Taken 11/10/20241999 Isolation Precautions: precautions maintained protective Problem: Comorbidity Management Goal: Maintenance of Asthma Control Outcome: Ongoing, Progressing Intervention: Maintain Asthma Symptom Control Flowsheets (Taken 11/10/20242222) Medication Review/Management: medications reviewed Goal: Maintenance of Behavioral Health Symptom Control Outcome: Ongoing, Progressing Intervention: Maintain Behavioral Health Symptom Control Flowsheets (Taken 11/10/20242222) Medication Review/Management: medications reviewed Goal: Maintenance of COPD Symptom Control Outcome: Ongoing, Progressing Intervention: Maintain COPD (Chronic Obstructive Pulmonary Disease) Symptom Control Flowsheets Taken 11/10/20242222 Medication Review/Management: medications reviewed Taken 11/09/20242202 Breathing Techniques/Airway Clearance: deep/controlled cough encouraged Goal: Blood Glucose Level Within Target Range Outcome: Ongoing, Progressing Intervention: Monitor and Manage Glycemia Flowsheets (Taken 11/10/20242222) Medication Review/Management: medications reviewed Goal: Maintenance of Heart Failure Symptom Control Outcome: Ongoing, Progressing Intervention: Maintain Heart Failure Management Flowsheets (Taken 11/10/20242222) Medication Review/Management: medications reviewed Goal: Blood Pressure in Desired Range Outcome: Ongoing, Progressing Intervention: Maintain Blood Pressure Management Flowsheets (Taken 11/10/20242222) Medication Review/Management: medications reviewed Goal: Maintenance of Osteoarthritis Symptom Control Outcome: Ongoing, Progressing Intervention: Maintain Osteoarthritis Symptom Control Flowsheets Taken 11/10/20242222 Adaptive Equipment Use: used independently Assistive Device Utilized: four wheel walker Medication Review/Management: medications reviewed Taken 11/10/20241999 Activity Management: activity adjusted per tolerance Goal: Bariatric Home Regimen Maintained Outcome: Ongoing, Progressing Intervention: Maintain and Manage Postbariatric Surgery Care Flowsheets (Taken 11/10/20242222) Medication Review/Management: medications reviewed Goal: Maintenance of Seizure Control Outcome: Ongoing, Progressing Intervention: Maintain Seizure Symptom Control Flowsheets Taken 11/10/20242222 Medication Review/Management: medications reviewed Taken 11/09/2024100 Sensory Stimulation Regulation: quiet environment promoted television on Seizure Precautions: activity supervised clutter-free environment maintained Problem: Fall Injury Risk Goal: Absence of Fall and Fall-Related Injury Outcome: Ongoing, Progressing Intervention: Identify and Manage Contributors Flowsheets (Taken 11/10/20242222) Medication Review/Management: medications reviewed Self-Care Promotion: independence encouraged BADL personal objects within reach BADL personal routines maintained Intervention: Promote Injury-Free Environment Flowsheets (Taken 11/10/20241999) Safety Promotion/Fall Prevention: activity supervised assistive device/personal items within reach clutter-free environment maintained fall prevention program maintained lighting adjusted mobility aid in reach nonskid shoes/slippers when out of bed safety round/check completed Problem: Skin Injury Risk Increased Goal: Skin Health and Integrity Outcome: Ongoing, Progressing Intervention: Optimize Skin Protection Flowsheets Taken 11/10/20242222 Pressure Reduction Techniques: frequent weight shift encouraged Pressure Reduction Devices: positioning supports utilized Skin Protection: protective footwear used Head of Bed (HOB) Positioning: HOB elevated Taken 11/10/20241999 Activity Management: activity adjusted per tolerance Intervention: Promote and Optimize Oral Intake Flowsheets Taken 11/09/20242202 Nutrition Interventions: diet adjusted Taken 11/09/2024100 Oral Nutrition Promotion: physical activity promoted rest periods promoted social interaction promoted Problem: Lower Extremity Revascularization Goal: Absence of Bleeding Outcome: Ongoing, Progressing Intervention: Monitor and Manage Bleeding Flowsheets (Taken 11/09/2024100) Bleeding Management: dressing monitored Goal: Effective Bowel Elimination Outcome: Ongoing, Progressing Intervention: Enhance Bowel Motility and Elimination Flowsheets Taken 11/09/20242202 Bowel Elimination Management: relaxation techniques promoted hygiene measures promoted sitting position facilitated Taken 11/09/2024100 Bowel Motility Enhancement: ambulation promoted Goal: Fluid and Electrolyte Balance Outcome: Ongoing, Progressing Intervention: Monitor and Manage Fluid and Electrolyte Balance Flowsheets (Taken 11/09/2024100) Fluid/Electrolyte Management: fluids provided Goal: Absence of Infection Signs and Symptoms Outcome: Ongoing, Progressing Intervention: Prevent or Manage Infection Flowsheets (Taken 11/10/20242222) Infection Management: aseptic technique maintained Fever Reduction/Comfort Measures: lightweight bedding lightweight clothing fluid intake increased Goal: Anesthesia/Sedation Recovery Outcome: Ongoing, Progressing Intervention: Optimize Anesthesia Recovery Flowsheets Taken 11/10/20242222 Stabilization Measures: legs elevated Taken 11/10/20241999 Safety Promotion/Fall Prevention: activity supervised assistive device/personal items within reach clutter-free environment maintained fall prevention program maintained lighting adjusted mobility aid in reach nonskid shoes/slippers when out of bed safety round/check completed Goal: Optimal Pain Control and Function Outcome: Ongoing, Progressing Intervention: Prevent or Manage Pain Flowsheets Taken 11/09/20241999 Pain Management Interventions: pillow support provided position adjusted quiet environment facilitated relaxation techniques promoted rest Taken 11/09/2024100 Diversional Activities: television smartphone Goal: Nausea and Vomiting Relief Outcome: Ongoing, Progressing Goal: Effective Urinary Elimination Outcome: Ongoing, Progressing Intervention: Monitor and Manage Urinary Retention Flowsheets (Taken 11/09/20242202) Urinary Elimination Promotion: absorbent pad/diaper use encouraged toileting offered Goal: Effective Oxygenation and Ventilation Outcome: Ongoing, Progressing Intervention: Optimize Oxygenation and Ventilation Flowsheets Taken 11/10/20242222 Head of Bed (HOB) Positioning: HOB elevated Taken 11/09/2024100 Airway/Ventilation Management: airway patency maintained position adjusted oxygen therapy provided Goal: Effective Tissue Perfusion Outcome: Ongoing, Progressing Intervention: Optimize Tissue Perfusion Flowsheets (Taken 11/10/20242222) Body Position: weight shifting Pressure Reduction Devices: positioning supports utilized Problem: Diabetes Goal: Optimal Coping Outcome: Ongoing, Progressing Intervention: Support Wellbeing and Self-Management Success Flowsheets (Taken 11/09/2024100) Supportive Measures: decision-making supported Family/Support System Care: self-care encouraged Goal: Optimal Functional Ability Outcome: Ongoing, Progressing Intervention: Optimize Functional Ability Flowsheets Taken 11/10/20243 Adaptive Equipment Use: used independently Assistive Device Utilized: four wheel walker Self-Care Promotion: independence encouraged BADL personal objects within reach BADL personal routines maintained Taken 11/10/20241999 Activity Management: activity adjusted per tolerance Activity Assistance Provided: independent assistance, stand-by Goal: Blood Glucose Level Within Target Range Outcome: Ongoing, Progressing Intervention: Optimize Glycemic Control Flowsheets (Taken 11/09/2024100) Hyperglycemia Management: blood glucose monitored Goal: Minimize Hypoglycemia Risk Outcome: Ongoing, Progressing Intervention: Minimize and Manage Hypoglycemia Flowsheets (Taken 11/09/2024100) Hypoglycemia Management: blood glucose monitored * Progress Notes - Kalpesh Lord PharmD - 11/10/2024 12:49 PM EDT Pharmacokinetic Consult - Therapeutic Drug Monitoring HPI and Hospital Course: Bev Borja is a 64 y.o. male presenting with a wound infection. Pharmacy was consulted for management of vancomycin. Dose History: Recent Vancomycin Admin Vancomycin HCl in NaCl (Vancocin) IVPB 1,000 mg (mg) 1,000 mg Given 11/10/24 0728 1,000 mg Given 11/09/24 2056 1,000 mg Given 1018 1,000 mg Given 11/08/242009 vancomycin in NS (Vancocin) IVPB 1,250 mg (mg) 1,250 mg New Bag 11/08/24 0520 1,250 mg New Bag 11/07/24 1757 1,250 mg New Bag 0626 1,250 mg New Bag 11/06/24 1932 1,250 mg New Bag 0331 Creatinine, Plasma (mg/dL) Date/Time Value 11/10/2024 0031 0.72 11/09/2024 0415 0.67 (L) 11/08/2024 0439 0.75 Estimated Creatinine Clearance: 108.7 mL/min (by C-G formula based on SCr of 0.72 mg/dL). Vancomycin Pharmacokinetic Evaluation: Current Dose: 1000 mg IV Q12 hr infused over 60 min Date/Time of Most Recent Dose: 11/10/24 0728 C1 random (ug/mL): 23.8 mcg/mL C2 trough (ug/mL): 16.2 mcg/mL Vancomycin ke (hr ^-1): 0.0452 Vancomycin half-life (hr): 15.3 Cmax, actual (ug/mL): 26.61 Ctrough, actual (ug/mL): 16.19 Vancomycin Vd (L): Vancomycin Vd (L/kg): Steady state Vd : 87.766 Steady state Vd : 0.992 Vancomycin AUC 24hr (mg??hr/L): 504 Assessment and Recommendations: 1. Levels drawn appropriately 2. Recommend to continue with current regimen of vancomycin 1000 mg IV every 12 hours. 3) Monitor renal function (SCr and BUN) and UOP at least 2-3x/week or more frequently if renal function changes. 4) Obtain repeat vancomycin levels (trough & peak to calculate AUC) around the 4th dose of new regimen or sooner if renal function changes. Pharmacy will continue to follow, Submitted by: Elizabeth HamiltonD, BCCCP 11/10/2024 12:45 PM * Care Plan - Deric Olivas RN - 11/10/2024 11:28 AM EDT Problem: Infection Goal: Absence of Infection Signs and Symptoms Outcome: Ongoing, Progressing Intervention: Prevent or Manage Infection Flowsheets (Taken 11/10/2024 112) Infection Management: aseptic technique maintained Fever Reduction/Comfort Measures: fluid intake increased Isolation Precautions: precautions maintained protective Problem: Fall Injury Risk Goal: Absence of Fall and Fall-Related Injury Outcome: Ongoing, Progressing Intervention: Identify and Manage Contributors Flowsheets (Taken 11/10/2024 112) Medication Review/Management: medications reviewed Self-Care Promotion: independence encouraged Intervention: Promote Injury-Free Environment Flowsheets (Taken 11/10/20241124) Safety Promotion/Fall Prevention: activity supervised clutter-free environment maintained safety round/check completed nonskid shoes/slippers when out of bed Problem: Skin Injury Risk Increased Goal: Skin Health and Integrity Outcome: Ongoing, Progressing Intervention: Optimize Skin Protection Flowsheets (Taken 11/10/2024 1125) Activity Management: activity adjusted per tolerance activity encouraged Pressure Reduction Techniques: frequent weight shift encouraged Pressure Reduction Devices: positioning supports utilized Skin Protection: protective footwear used Head of Bed (HOB) Positioning: HOB elevated * Progress Notes - Reid Daniels MD - 11/10/2024 10:59 AM EDT Images from the original note were not included. Department of Surgery Division of Vascular Surgery Surgery Progress Note Date of Note: 11/10/24 Patient (Date of ): Bev Borja (1960) Subjective History of Present Illness 64yoM PMHx COPD, T2DM, HLD, HTN, RLS, CAD s/p PCI (on Xarelto) s/p pacemaker c/b left SANDIP pseudoaneurysm s/p thrombin injection 09/21/24, CLI s/p left femoral endarterectomy with EIA/OR ASSISTANT stenting 10/17/24, who presented to [facility] 11/05/2024 with wound infection. 11/06/24: L groin/thigh washout and debridement. No arterial involvement noted. Interval: NAEO. Patient's dressing changed today. He reports having three cups of soup yesterday and increasing PO intake. Ambulating without issue. Edited by: Reid Daniels MD at 11/10/2024 0942 Review of Systems Review of Systems Relevant review of systems was obtained as able and is negative unless stated above in HPI. Objective Objective: Vital signs: Vitals: 11/10/24 0714 BP: (!) 174/74 Pulse: 70 Resp: 16 Temp: 36.7 ??C (98 ??F) SpO2: 97% Physical Exam: Physical Exam Constitutional: General: He is awake. HENT: Mouth/Throat: Mouth: Mucous membranes are moist. Eyes: Extraocular Movements: Extraocular movements intact. Cardiovascular: Rate and Rhythm: Normal rate and regular rhythm. Pulmonary: Effort: Pulmonary effort is normal. Skin: General: Skin is warm and dry. Capillary Refill: Capillary refill takes less than 2 seconds. Findings: Wound (two wounds; one in L groin and one L medial knee. No purulent drainage noted.) present. Neurological: Mental Status: He is alert. Mental status is at baseline. Psychiatric: Mood and Affect: Mood normal. Behavior: Behavior normal. Behavior is cooperative. Intake/Output Summary (Last 24 hours) at 11/10/2024 1100 Last data filed at 11/10/2024 0333 Gross per 24 hour Intake 1186 ml Output 0 ml Net 1186 ml Lines/Drains/Tubes: Patient Lines/Drains/Airways Status Active Airway None Output by Drain (mL) 11/08/24 0700 - 11/08/24 1859 11/08/24 1900 - 11/09/24 0659 11/09/24 07 - 11/09/24 1859 11/09/24 190 - 11/10/24 0659 11/10/24 07 - 11/10/24 1100 Patient has no LDAs of requested type attached. Labs in last 18 hours: CBC WBC 10.80 (H) Hb 9.1 (L) Plt 501 (H) Hct 28.0 (L) ANC 8.32 (H) INR ??, PTT ??, Anti-Xa ?? MCV 92 BMP Na 135 (L) Cl 106 BUN 9 Glu 185 (H) K 4.0 Co2 19 (L) Cr 0.72 Ca 7.8 (L) iCa ?? Mg ??, Phos ?? Lactate ?? LFT AST 33 AlkPhos 108 T Prot 5.6 (L) ALK 25 Bili <0.2 (L) Alb ?? D.Bili ?? Lab Trends: H/H Results from last 7 days Lab Units 11/10/24 0031 11/09/245 11/08/24 0439 HEMOGLOBIN g/dL 9.1* 9.2* 9.2* HEMATOCRIT % 28.0* 28.3* 28.9* INR Cr Results from last 7 days Lab Units 11/10/24 0031 11/09/245 11/08/24 0439 CREATININE mg/dL 0.72 0.67* 0.75 Lactate No lab exists for component: LACTTEVEN Radiographic Interpretation: No relevant imaging to review. Medications reviewed. Vital signs reviewed. Labs reviewed. Assessment/Plan Assessment and Plan: Bev Borja is a 64yo M PMHx COPD, T2DM, HLD, HTN, RLS, CAD s/p PCI (on Xarelto) s/p pacemaker c/b left SANDIP pseudoaneurysm s/p thrombin injection 09/21/24, CLI s/p left femoral endarterectomy with EIA/OR ASSISTANT stenting 10/17/24, who presented to [facility] 11/05/2024 with wound infection. POD # 2 s/p L groin/thigh washout and debridement. No arterial involvement noted intraoperatively. Patient increased PO intake of fluids yesterday and today. Encouraged to continue current PO intake. His Cr has remained wnl. His wounds are stable. Patient is overall well and ambulating hallways with nursing support and walker. Plan: - ID consulted, will need 4-6 weeks IV ABX and PICC. Will proceed with modified OPAT. - DC with two wound vacs - Per ID, transitioned to cefepime, flagyl, and vanc on 11/07 - Home meds resumed - wound care: packed wet to dry dressing with Dakins. AM changes per vascular, PM changes per RN. - continue SSI - encourage PO intake - single lumen PICC placed 11/09 by vascular access- ok per ID Edited by: Reid Daniels MD at 11/10/2024 0942 Dispo: Continue Current Level of Care Cosigned by Nathaly Nowak MD at 11/11/2024 11:54 AM EDT Associated attestation - Nathaly Nowak MD - 11/11/2024 11:54 AM EDT I saw and evaluated the patient with the resident/fellow. I discussed the case with the resident/fellow and agree with the findings and plan as documented. * Care Plan - Eber Hanson RN - 11/09/2024 10:09 PM EDT Problem: Adult Inpatient Plan of Care Goal: Plan of Care Review Outcome: Ongoing, Progressing Flowsheets (Taken 11/09/20242202) Progress: improving Plan of Care Reviewed With: patient Goal: Patient-Specific Goal (Individualized) Outcome: Ongoing, Progressing Goal: Absence of Hospital-Acquired Illness or Injury Outcome: Ongoing, Progressing Intervention: Identify and Manage Fall Risk Flowsheets (Taken 11/09/20241999) Safety Promotion/Fall Prevention: activity supervised assistive device/personal items within reach clutter-free environment maintained fall prevention program maintained lighting adjusted mobility aid in reach nonskid shoes/slippers when out of bed safety round/check completed Intervention: Prevent Skin Injury Flowsheets Taken 11/09/20242202 Body Position: weight shifting Taken 11/09/20241999 Skin Protection: protective footwear used Intervention: Prevent and Manage VTE (Venous Thromboembolism) Risk Flowsheets (Taken 11/09/20241999) VTE Prevention/Management: SCDs (sequential compression devices) off medication Intervention: Prevent Infection Flowsheets (Taken 11/09/2024100) Infection Prevention: cohorting utilized hand hygiene promoted rest/sleep promoted single patient room provided Goal: Optimal Comfort and Wellbeing Outcome: Ongoing, Progressing Intervention: Monitor Pain and Promote Comfort Flowsheets (Taken 11/09/20241999) Pain Management Interventions: pillow support provided position adjusted quiet environment facilitated relaxation techniques promoted rest Intervention: Provide Person-Centered Care Flowsheets (Taken 11/09/2024100) Trust Relationship/Rapport: care explained emotional support provided empathic listening provided questions answered thoughts/feelings acknowledged Problem: Infection Goal: Absence of Infection Signs and Symptoms Outcome: Ongoing, Progressing Intervention: Prevent or Manage Infection Flowsheets Taken 11/09/20242202 Infection Management: aseptic technique maintained Fever Reduction/Comfort Measures: lightweight clothing lightweight bedding Taken 11/09/20241999 Isolation Precautions: precautions maintained protective Problem: Comorbidity Management Goal: Maintenance of Asthma Control Outcome: Ongoing, Progressing Intervention: Maintain Asthma Symptom Control Flowsheets (Taken 11/09/20242202) Medication Review/Management: medications reviewed Goal: Maintenance of Behavioral Health Symptom Control Outcome: Ongoing, Progressing Intervention: Maintain Behavioral Health Symptom Control Flowsheets (Taken 11/09/20242202) Medication Review/Management: medications reviewed Goal: Maintenance of COPD Symptom Control Outcome: Ongoing, Progressing Intervention: Maintain COPD (Chronic Obstructive Pulmonary Disease) Symptom Control Flowsheets (Taken 11/09/20242202) Breathing Techniques/Airway Clearance: deep/controlled cough encouraged Medication Review/Management: medications reviewed Goal: Blood Glucose Level Within Target Range Outcome: Ongoing, Progressing Intervention: Monitor and Manage Glycemia Flowsheets (Taken 11/09/20242202) Medication Review/Management: medications reviewed Goal: Maintenance of Heart Failure Symptom Control Outcome: Ongoing, Progressing Intervention: Maintain Heart Failure Management Flowsheets (Taken 11/09/20242202) Medication Review/Management: medications reviewed Goal: Blood Pressure in Desired Range Outcome: Ongoing, Progressing Intervention: Maintain Blood Pressure Management Flowsheets (Taken 11/09/20242202) Medication Review/Management: medications reviewed Goal: Maintenance of Osteoarthritis Symptom Control Outcome: Ongoing, Progressing Intervention: Maintain Osteoarthritis Symptom Control Flowsheets (Taken 11/09/20242202) Activity Management: activity adjusted per tolerance Assistive Device Utilized: four wheel walker Medication Review/Management: medications reviewed Goal: Bariatric Home Regimen Maintained Outcome: Ongoing, Progressing Intervention: Maintain and Manage Postbariatric Surgery Care Flowsheets (Taken 11/09/20242202) Medication Review/Management: medications reviewed Goal: Maintenance of Seizure Control Outcome: Ongoing, Progressing Intervention: Maintain Seizure Symptom Control Flowsheets Taken 11/09/20242202 Medication Review/Management: medications reviewed Taken 11/09/2024100 Sensory Stimulation Regulation: quiet environment promoted television on Seizure Precautions: activity supervised clutter-free environment maintained Problem: Fall Injury Risk Goal: Absence of Fall and Fall-Related Injury Outcome: Ongoing, Progressing Intervention: Identify and Manage Contributors Flowsheets Taken 11/09/20242202 Medication Review/Management: medications reviewed Taken 11/09/2024100 Self-Care Promotion: independence encouraged BADL personal objects within reach BADL personal routines maintained Intervention: Promote Injury-Free Environment Flowsheets (Taken 11/09/20241999) Safety Promotion/Fall Prevention: activity supervised assistive device/personal items within reach clutter-free environment maintained fall prevention program maintained lighting adjusted mobility aid in reach nonskid shoes/slippers when out of bed safety round/check completed Problem: Skin Injury Risk Increased Goal: Skin Health and Integrity Outcome: Ongoing, Progressing Intervention: Optimize Skin Protection Flowsheets Taken 11/09/20242202 by Eber Hanson RN Activity Management: activity adjusted per tolerance Head of Bed (HOB) Positioning: HOB elevated Taken 11/09/20241999 by Eber Hanson RN Skin Protection: protective footwear used Taken 11/09/20241622 by Deric Olivas, RN Pressure Reduction Techniques: frequent weight shift encouraged Taken 11/09/2024100 by Eber Hanson RN Pressure Reduction Devices: positioning supports utilized Intervention: Promote and Optimize Oral Intake Flowsheets Taken 11/09/20242202 Nutrition Interventions: diet adjusted Taken 11/09/2024100 Oral Nutrition Promotion: physical activity promoted rest periods promoted social interaction promoted Problem: Lower Extremity Revascularization Goal: Absence of Bleeding Outcome: Ongoing, Progressing Intervention: Monitor and Manage Bleeding Flowsheets (Taken 11/09/2024100) Bleeding Management: dressing monitored Goal: Effective Bowel Elimination Outcome: Ongoing, Progressing Intervention: Enhance Bowel Motility and Elimination Flowsheets Taken 11/09/20242202 Bowel Elimination Management: relaxation techniques promoted hygiene measures promoted sitting position facilitated Taken 11/09/2024100 Bowel Motility Enhancement: ambulation promoted Goal: Fluid and Electrolyte Balance Outcome: Ongoing, Progressing Intervention: Monitor and Manage Fluid and Electrolyte Balance Flowsheets (Taken 11/09/2024100) Fluid/Electrolyte Management: fluids provided Goal: Absence of Infection Signs and Symptoms Outcome: Ongoing, Progressing Intervention: Prevent or Manage Infection Flowsheets (Taken 11/09/20242202) Infection Management: aseptic technique maintained Fever Reduction/Comfort Measures: lightweight clothing lightweight bedding Goal: Anesthesia/Sedation Recovery Outcome: Ongoing, Progressing Intervention: Optimize Anesthesia Recovery Flowsheets Taken 11/09/20241999 Safety Promotion/Fall Prevention: activity supervised assistive device/personal items within reach clutter-free environment maintained fall prevention program maintained lighting adjusted mobility aid in reach nonskid shoes/slippers when out of bed safety round/check completed Taken 11/09/2024100 Administration (IS): self-administered instruction provided, follow-up Goal: Optimal Pain Control and Function Outcome: Ongoing, Progressing Intervention: Prevent or Manage Pain Flowsheets Taken 11/09/20241999 Pain Management Interventions: pillow support provided position adjusted quiet environment facilitated relaxation techniques promoted rest Taken 11/09/2024100 Diversional Activities: television smartphone Goal: Nausea and Vomiting Relief Outcome: Ongoing, Progressing Goal: Effective Urinary Elimination Outcome: Ongoing, Progressing Intervention: Monitor and Manage Urinary Retention Flowsheets (Taken 11/09/20242202) Urinary Elimination Promotion: absorbent pad/diaper use encouraged toileting offered Goal: Effective Oxygenation and Ventilation Outcome: Ongoing, Progressing Intervention: Optimize Oxygenation and Ventilation Flowsheets Taken 11/09/20242202 Head of Bed (HOB) Positioning: HOB elevated Taken 11/09/2024100 Airway/Ventilation Management: airway patency maintained position adjusted oxygen therapy provided Goal: Effective Tissue Perfusion Outcome: Ongoing, Progressing Intervention: Optimize Tissue Perfusion Flowsheets Taken 11/09/20242202 Body Position: weight shifting Taken 11/09/2024100 Pressure Reduction Devices: positioning supports utilized Problem: Diabetes Goal: Optimal Coping Outcome: Ongoing, Progressing Intervention: Support Wellbeing and Self-Management Success Flowsheets (Taken 11/09/2024100) Supportive Measures: decision-making supported Family/Support System Care: self-care encouraged Goal: Optimal Functional Ability Outcome: Ongoing, Progressing Intervention: Optimize Functional Ability Flowsheets Taken 11/09/20242202 Activity Management: activity adjusted per tolerance Assistive Device Utilized: four wheel walker Taken 11/09/20241999 Activity Assistance Provided: assistance, stand-by independent Taken 11/09/2024100 Self-Care Promotion: independence encouraged BADL personal objects within reach BADL personal routines maintained Goal: Blood Glucose Level Within Target Range Outcome: Ongoing, Progressing Intervention: Optimize Glycemic Control Flowsheets (Taken 11/09/2024100) Hyperglycemia Management: blood glucose monitored Goal: Minimize Hypoglycemia Risk Outcome: Ongoing, Progressing Intervention: Minimize and Manage Hypoglycemia Flowsheets (Taken 11/09/2024100) Hypoglycemia Management: blood glucose monitored * Care Plan - Deric Olivas RN - 11/09/2024 4:27 PM EDT Problem: Infection Goal: Absence of Infection Signs and Symptoms Outcome: Ongoing, Progressing Intervention: Prevent or Manage Infection Flowsheets (Taken 11/09/2024 1623) Infection Management: aseptic technique maintained Fever Reduction/Comfort Measures: fluid intake increased Isolation Precautions: precautions maintained protective Problem: Comorbidity Management Goal: Blood Pressure in Desired Range Outcome: Ongoing, Progressing Intervention: Maintain Blood Pressure Management Flowsheets (Taken 11/09/2024 1623) Medication Review/Management: medications reviewed dosing adjusted Problem: Skin Injury Risk Increased Goal: Skin Health and Integrity Outcome: Ongoing, Progressing Intervention: Optimize Skin Protection Flowsheets (Taken 11/09/2024 1629) Activity Management: activity adjusted per tolerance ambulated in ruelas Pressure Reduction Techniques: frequent weight shift encouraged Skin Protection: protective footwear used Head of Bed (HOB) Positioning: HOB elevated Intervention: Promote and Optimize Oral Intake Flowsheets (Taken 11/09/2024 4443) Nutrition Interventions: supplemental foods provided * Procedures - Estefani Barraza RN - 11/09/2024 1:11 PM EDTAssociated Order(s): Insert PICC line Insert PICC line Date/Time: 11/09/2024 1:11 PM Performed by: Estefani Barraza RN Authorized by: Nathaly Nowak MD [place] Protocol: Verbal consent obtained?: Yes Written consent obtained?: Yes Risks and benefits: Risks, benefits and alternatives were discussed Consent given by: Patient Patient states understanding of procedure being performed: Yes Patient's understanding of procedure matches consent: Yes Procedure consent matches procedure scheduled: Yes Relevant documents present and verified: Yes Patient identity confirmed: Verbally with patient, arm band, provided demographic data and hospital-assigned identification number Time out: Immediately prior to the procedure a time out was called Indications: Vascular access Local anesthetic: Lidocaine 1% without epinephrine Sedation: Patient sedated: No Preparation: Skin prepped with 2% chlorhexidine Skin prep agent dried: Skin prep agent completely dried prior to procedure Sterile barriers: All five maximal sterile barriers used - gloves, gown, cap, mask and large sterile sheet Hand hygiene: Hand hygiene performed prior to catheter insertion Orientation: Right Location (Adult): Brachial vein Site selection rationale: Left pacemaker Catheter Lot #: [id number] Catheter microstrategy bi developer: Bard Catheter placed: Single lumen Catheter size: 4 Fr Catheter trimmed length: 42 Catheter threaded length: 42 Vein placed in: SVC Catheter cm indwellin Catheter cm outside: 0 Placement confirmed by: Navneet KleinG technology Pre-procedure: Landmarks identified Ultrasound guidance: Yes Sterile ultrasound techniques: Sterile gel and sterile probe covers were used Number of attempts: 1 Post-procedure: Adhesive securement device and sterile access caps placed on each lumen Dressing applied: CHG tegaderm Assessment: Blood return through all ports and free fluid flow Patient tolerated the procedure well with no immediate complications.: Yes PICC kit educational material was given to the patient.: Yes * Progress Notes - Reid Daniels MD - 11/09/2024 11:46 AM EDT Images from the original note were not included. Department of Surgery Division of Vascular Surgery Surgery Progress Note Date of Note: 11/09/24 Patient (Date of ): Bev Borja (1960) Subjective History of Present Illness 64yoM PMHx COPD, T2DM, HLD, HTN, RLS, CAD s/p PCI (on Xarelto) s/p pacemaker c/b left SANDIP pseudoaneurysm s/p thrombin injection 09/21/24, CLI s/p left femoral endarterectomy with EIA/OR ASSISTANT stenting 10/17/24, who presented to [facility] 11/05/2024 with wound infection. 11/06/24: L groin/thigh washout and debridement. No arterial involvement noted. Interval: NAEO. Patient's dressing changed today. He reports his appetite is decreased but he denies n/v. He reports he just has no interest in eating or drinking. Pain well controlled. Edited by: Reid Daniels MD at 11/09/2024 1025 Review of Systems Review of Systems Relevant review of systems was obtained as able and is negative unless stated above in HPI. Objective Objective: Vital signs: Vitals: 11/09/24 1150 BP: (!) 194/81 Pulse: 67 Resp: Temp: (!) 36.2 ??C (97.2 ??F) SpO2: 98% Physical Exam: Physical Exam Constitutional: General: He is awake. Eyes: Extraocular Movements: Extraocular movements intact. Cardiovascular: Rate and Rhythm: Normal rate and regular rhythm. Pulmonary: Effort: Pulmonary effort is normal. Skin: General: Skin is warm and dry. Capillary Refill: Capillary refill takes less than 2 seconds. Findings: Wound (two open wounds located with one in his L groin and one in his medial side of L knee; both are clean and show no purulent discharge) present. Neurological: Mental Status: He is alert. Mental status is at baseline. Psychiatric: Mood and Affect: Mood normal. Behavior: Behavior normal. Intake/Output Summary (Last 24 hours) at 11/09/2024 1200 Last data filed at 11/09/2024 0328 Gross per 24 hour Intake 1160 ml Output 0 ml Net 1160 ml Lines/Drains/Tubes: Patient Lines/Drains/Airways Status Active Airway None Output by Drain (mL) 11/07/24 0700 - 11/07/24 1859 11/07/24 1900 - 11/08/24 0659 11/08/24 0700 - 11/08/24 1859 11/08/24 1900 - 11/09/24 0659 11/09/24 0700 - 11/09/24 1200 Patient has no LDAs of requested type attached. Labs in last 18 hours: CBC WBC 10.27 Hb 9.2 (L) Plt 468 (H) Hct 28.3 (L) ANC 7.97 (H) INR ??, PTT ??, Anti-Xa ?? MCV 90 BMP Na 134 (L) Cl 104 BUN 9 Glu 171 (H) K 4.1 Co2 21 (L) Cr 0.67 (L) Ca 8.4 (L) iCa ?? Mg ??, Phos ?? Lactate ?? LFT AST 18 AlkPhos 110 T Prot 5.8 (L) ALK 17 Bili <0.2 (L) Alb ?? D.Bili ?? Lab Trends: H/H Results from last 7 days Lab Units 11/09/24 0415 11/08/24 0439 11/07/24 1137 HEMOGLOBIN g/dL 9.2* 9.2* 8.5* HEMATOCRIT % 28.3* 28.9* 26.0* INR Cr Results from last 7 days Lab Units 11/09/24 0415 11/08/24 0439 11/07/24 1137 CREATININE mg/dL 0.67* 0.75 0.92 Lactate No lab exists for component: LACTTEVEN Radiographic Interpretation: No relevant imaging to review. Medications reviewed. Vital signs reviewed. Labs reviewed. Assessment/Plan Bev Borja is a 64yo M PMHx COPD, T2DM, HLD, HTN, RLS, CAD s/p PCI (on Xarelto) s/p pacemaker c/b left SANDIP pseudoaneurysm s/p thrombin injection 09/21/24, CLI s/p left femoral endarterectomy with EIA/OR ASSISTANT stenting 10/17/24, who presented to [facility] 11/05/2024 with wound infection. POD # 2 s/p L groin/thigh washout and debridement. No arterial involvement noted intraoperatively. He appears well today, and his wounds were clean and without any purulence, warmth, or worsening erythema. The patientreports drinking less than one cup of water yesterday. He reports no interest in eating or drinking. Encouraged to increase PO intake and counseled on risk of renal injury with poor PO fluid intake sp ecifically. Patient understood. Plan: - ID consulted, will need 4-6 weeks IV ABX and PICC. Will proceed with modified OPAT. - DC with two wound vacs - Per ID, transitioned to cefepime, flagyl, and vanc on 11/07 - Home meds resumed - wound care: packed wet to dry dressing with Dakins. AM changes per vascular, PM changes per RN. - continue SSI - encourage PO intake - no PIV access, ok for single lumen PICC placement today (11/09) by vascular access per ID Edited by: Reid Daniels MD at 11/09/2024 1200 Dispo: Continue Current Level of Care [place] M4 student [facility] Cosigned by Nathaly Nowak MD at 11/11/2024 11:43 AM EDT Associated attestation - Nathaly Nowak MD - 11/11/2024 11:43 AM EDT I saw and evaluated the patient with the resident/fellow. I discussed the case with the resident/fellow and agree with the findings and plan as documented. * Progress Notes - Linda Magallanes I - 11/09/2024 8:46 AM EDT Physical Therapy Evaluation Patient Name: Bev Borja Today's Date: 11/09/2024 PT Discharge Recommendations: Home with assistance Equipment Recommended: Patient owns appropriate equipment History Bev Borja is 64 y.o. male admitted 11/05/2024 for work-up of Wound infection. Problem List Active Hospital Problems Diagnosis Date Noted Wound infection 11/06/2024 Surgical wound infection 11/05/2024 Procedures 11/06/2024 Procedure(s): Left groin exploration and washout, possible wound vac placement Past Medical History Patient has a past medical history of Arthritis and Old myocardial infarction. Past Surgical History Patient has a past surgical history that includes Coronary artery bypass graft (N/A, 2019); Carotidendarterectomy (N/A, 2017); Coronary angioplasty (Left); Ankle surgery (Right); Elbow surgery (Right); Cardiac pacemaker placement; knee arthroscopy (Left); Hernia repair; Vascular surgery (Left, 09/21/2024); and endarterectomy (Left, 10/17/2024). Precautions None Subjective Patient agreeable to PT session. Patient reports he went to [facility] 12th floor via w/c yesterday to visit his nephew. Participants in Care Family/Caregiver Present: No Presentation Oxygen Therapy: None (Room air) Lines and Tubes: Telemetry Pre-Session: Supine, Head of bed elevated, Lines intact Pre-Session Comments: RN consent to evaluation Post-Session: Sitting in chair, Lines intact, RN notified, Call light in reach Post-Session Comments: All needs met; RN at bedside and aware of packing dislodged from LLE wound Home Living/Set-up Lives With: Alone (with 2 dogs) Home Type: Apartment Home Adaptive Equipment: Rollator, shower chair Home Layout: One level Bathroom: Tub/Shower: Tub/Shower combo Bathroom: Toilet: Standard Prior Level of Function Receives Help From: No assist required prior to admission Level of Mobility: Ambulatory- community (was utilizing scooter at [email or web address] since discharge) Mobility Bol[place]ar: Independent gait with device History of Falls: Yes (1 fall in the past 6 months in the bathroom) ADL Performance: Independent Patient/Family Goals To return home Objective Pain Patient denies pain at rest. Patient positioned for comfort with pillow support at conclusion of session. Delirium Screening RASS: Alert and calm Confusion Assessment Method-ICU (CAM-ICU/PCAM-ICU) Feature 3: Altered Level of Consciousness: Negative Cognition Overall Cognitive Status: Within Functional Limits Arousal/Alertness: Appropriate responses to stimuli Mood/Behavior: Alert Orientation Level: Oriented X4 Single Step Commands: Consistently Multi-Step Commands: Consistently Method of Communication: Verbal Vision - Basic Assessment Baseline Vision: Glasses reading Right Upper Extremity Examination RUE Assessment: Within Functional Limits Manual Muscle Testing - RUE: Within functional limits Sensation Light Touch: Right Upper Extremity: Intact Left Upper Extremity Examination LUE ROM Assessment LUE Assessment: Within Functional Limits Manual Muscle Testing - LUE Manual Muscle Testing - LUE: Within functional limits Sensation Light Touch: Left Upper Extremity: Intact Right Lower Extremity Examination RLE ROM Assessment RLE Assessment: Within Functional Limits Manual Muscle Testing - RLE Manual Muscle Testing - RLE: Within functional limits Sensation Light Touch: Right Lower Extremity: Intact Left Lower Extremity Examination LLE Assessment: Within Functional Limits Manual Muscle Testing: Within functional limits Sensation Light Touch: Left Lower Extremity: Mild impairment (baseline numbness distal to knee) Bed Mobility Bed Mobility Exam: Scooting/Bridging Level of Bolivar: Modified independence Bed Mobility Exam: Supine to Sit Level of Bolivar: Modified [place] Transfers Transfer Exam: Sit to stand Level of Bolivar: Modified independence Assistive Device: Rollator Transfer Exam: Stand to Sit Level of Bolivar: Modified independence Assistive Device: Rollator Ambulation Device: Rollator Assistance: Modified independent Distance : 200ft x2 Ambulation Comments: with seated rest break between bouts; RPE 5-7/10. Cues for safety with rollator brakes. Balance Postural Appearance Posture: Within Functional Limits Static Sitting Balance Static Sitting-Balance Support: Feet supported Static Sitting-Level of Assistance: Independent Dynamic Sitting Balance Dynamic Sitting-Balance Support: Feet supported Level of Assistance: Independent Static Standing Balance Static Standing-Balance Support: Right upper extremity support, Left upper extremity support (via rollator) Static Standing-Level of Assistance: Independent Dynamic Standing Balance Dynamic Standing-Balance Support: Right upper extremity support, Left upper extremity support (via rollator) Dynamic Standing Level of Assistance: Independent Therapeutic Activity (17 minutes) Patient participated in therapeutic activity focused on increasing tolerance to functional tasks and increasing independence with bed mobility, transfers, and patient education regarding HEP and mobility. PT provided skilled management of medical lines/tubes and environmental set-up to ensure safety and reduce fall risk during with mobility. Patient utilized commode, + BM and stood at bathroom sink x 2 minutes for standing dynamic balance activities with Mariana for balance. PT educated patient oncontinued ambulation and mobility throughout inpatient stay and upon discharge home to maintain/improve functional mobility and endurance. Standardized Assessments [facility] 6-Clicks Mobility Assessment Difficulty patient has turning [...] 3-5 steps with a railing?: A little [facility] 6-Clicks Mobility Assessment Total : 22 Assessment Patient demonstrates all mobility with SBA-independence this session. Due to patient's current presentation and lack of impairments, skilled PT is not indicated for the remainder of inpatient stay. PT will sign off at this time. Please re-consult if there is a change in medical status or a physicaldecline. Eval Complexity History Profile: 1 - 2 personal factors and/or comorbidities Clinical Presentation: Stable and/or uncomplicated characteristics Clinical Decision Making: Low complexity PT Recommendations Discharge Destination: Home with assistance Discharge Equipment: Patient owns appropriate equipment Plan Patient no longer demonstrates need for inpatient physical therapy services. Patient to be discharged from physical therapy. Written by Linda Magallanes on 11/09/24 at 8:53 AM. * Progress Notes - Brianna Ovalle - 11/09/2024 8:45 AM EDT OCCUPATIONAL THERAPY EVALUATION / DISCHARGE SUMMARY PATIENT DATA Patient Name Bev Borja Session Date 11/09/2024 OT Discharge Recommendations Home with assistance Equipment Recommendations Patient owns appropriate equipment HISTORY Bev Borja is 64 y.o. male admitted 11/05/2024 for work-up of Wound infection. Hospital Course 1. Surgical wound infection Procedures 11/06/2024 Procedure(s): Left groin exploration and washout, possible wound vac placement Past Medical History Patient has a past medical history of Arthritis and Old myocardial infarction. Past Surgical History Patient has a past surgical history that includes Coronary artery bypass graft (N/A, 2019); Carotidendarterectomy (N/A, 2017); Coronary angioplasty (Left); Ankle surgery (Right); Elbow surgery (Right); Cardiac pacemaker placement; knee arthroscopy (Left); Hernia repair; Vascular surgery (Left, 09/21/2024); and endarterectomy (Left, 10/17/2024). SUBJECTIVE PARTICIPANTS IN CARE Patient/Caregiver Comments RN cleared pt for therapy. Pt agreeable for OT evaluation this morning. Visitors Present Family/Caregiver Present: No PRESENTATION Oxygen None (Room air) Lines and Tubes Peripheral IV 11/08/24 Anterior;Proximal;Right Forearm (Active) Pre-Session Supine, Head of bed elevated, Lines intact RN consent to evaluation Post-Session Sitting in chair, Lines intact, RN notified, Call light in reach All needs met; RN at bedside and aware of packing dislodged from LLE wound HOME LIVING/SET-UP Lives With Alone (with 2 dogs) Home Type Apartment Home Equipment Rollator, shower chair Home Layout One level Bathroom Layout Tub/Shower combo Bathroom: Toilet: Standard PRIOR LEVEL OF FUNCTION Receives help from No assist required prior to admission Level of Mobility Ambulatory- community (was utilizing scooter at [employer] store since discharge) Mobility Bolivar Independent gait with device History of Falls Yes (1 fall in the past 6 months in the bathroom) ADL Performance ADL Performance: Independent PATIENT/FAMILY GOALS To go home. OBJECTIVE PAIN Patient denies pain throughout session. DELIRIUM SCREENING RASS: Alert and calm Confusion Assessment Method-ICU (CAM-ICU/PCAM-ICU) Feature 3: Altered Level of Consciousness: Negative COGNITION Overall Cognitive Status Within Functional Limits Arousal/Alertness Appropriate responses to stimuli Mood/Behavior Alert Orientation x4 Command Following Single Step Commands: Consistently Multi-Step Commands: Consistently Method of Communication Verbal VISION Baseline Vision Glasses reading Current Vision (if different) No acute vision changes reported. RIGHT UPPER EXTREMITY EXAMINATION Range of Motion Within Functional Limits Manual Muscle Testing Within functional limits Light Touch Sensation Intact LEFT UPPER EXTREMITY EXAMINATION Range of Motion Within Functional Limits Manual Muscle Testing Within functional limits Light Touch Sensation Intact RIGHT LOWER EXTREMITY EXAMINATION Range of Motion Within Functional Limits Manual Muscle Testing Within functional limits Light Touch Sensation Intact LEFT LOWER EXTREMITY EXAMINATION Range of Motion Within Functional Limits Manual Muscle Testing Manual Muscle Testing: Within functional limits Light Touch Sensation Mild impairment (baseline numbness distal to knee) BED MOBILITY Level of [place] Physical/Non-physical Assist Adaptive Equipment Utilized Scooting/ Bridging Modified independence Supine to Sit Modified [place] TRANSFERS Level of [place] Physical/Non-physical Assist Adaptive Equipment Utilized Sit to Stand Modified independence Rollator Stand to sit Modified independence Rollator Toilet Transfer Modified independence Grab bar FUNCTIONAL MOBILITY Ambulation Modified independent 200ft x2 with seated rest break between bouts; RPE 5-7/10. Cues forsafety with rollator brakes. Rollator Comments BALANCE Postural Appearance Posture: Within Functional Limits Level of Bolivar Balance Support Static Sit Independent Feet supported Dynamic Sit Independent Feet supported Static Stand Independent Right upper extremity support, Left upper extremity support (via rollator) Dynamic Stand Independent Right upper extremity support, Left upper extremity support (via rollator) STANDARDIZED ASSESSMENTS [facility] 6-Click Daily Activities Help from Other: Don/Doff Regular Lower Body Clothings: None Help From Other: Bathing: None Help From Other: Toileting: None Help From Other: Don/Doff Upper Body Clothings: None Help From Other: Grooming: None Help From Other: Eating Meals: None [facility] 6 Click - Daily Activities Score: 24 OT INTERVENTIONS SELF-CARE Treatment Minutes (if applicable) 15 Comments: The patient was challenged to perform basic self care tasks for assessment of safety withreturn to home routines including toileting, grooming, dressing, and functional ADL transfers. The patient benefited from the following OT interventions: Increased skilled time provided for monitoring of patient's tolerance to activity. Environmental set-up to ensure safety and accessibility to all needed areas of treatment space. Level of Bolivar Interventions Grooming Modified independent Standing sinkside Pt completed hand hygiene while standing sinkside with mod I, no LOB with bimanual tasks or with functional reach within PEACE. Lower Body Dressing Sock Level of Assistance: Modified independent Patient adjusted non-slip socks while seated EOB, use of figure four position for lower body reach. Anticipate no physical assist required for standing components of lower body dressing. Toileting Modified independent Toilet Patient completed full toileting routine in bathroom with modified independence including functional transfer on/off toilet, gown management, and hygiene. Household/ Community Re-Entry Patient was challenged to complete functional ambulation sequence in order to prepare for out of bed ADLs, to address functional endurance, environmental navigation, andprepare patient for community re-entry. Pt navigated a distance of 400 ft with use of four wheeled walker. Patient required one seated rest break. Therapist provided MIN cues for device management. With above supports, patient able to safely complete task. However patient demonstrating fair tolerance to prolonged standing activity this date, indicating fair endurance anticipated with out of bed ADLs including grooming, toileting, dressing, and bathing. OT providing training for self-assessment of RPE with use of modified FIDEL scale; patient identifying exertional demands of task 5-7/10. ASSESSMENT OT FINDINGS The patient is a 64yo M seen today for OT evaluation, pt admitted 2/2 wound infection. The patient tolerated evaluation well, and performed all observable ADLs with mod I, and all functional mobilitywith mod I. The patient is currently performing at expected functional level post-op, continued skilled OT not warranted at this time. All questions answered, all concerns addressed, recommend d/c home with family assist as needed. OT will sign off. EVAL COMPLEXITY Clinical Decision Making Low Overall Eval Complexity Low OT RECOMMENDATIONS Discharge Destination Home with assistance Discharge Equipment Patient owns appropriate equipment Written by Brianna Ovalle on 11/09/24 at 8:57 AM. * Care Plan - Eber Hanson RN - 11/09/2024 1:08 AM EDT Problem: Adult Inpatient Plan of Care Goal: Plan of Care Review Outcome: Ongoing, Progressing Flowsheets (Taken 11/09/2024 010) Progress: improving Plan of Care Reviewed With: patient Goal: Patient-Specific Goal (Individualized) Outcome: Ongoing, Progressing Goal: Absence of Hospital-Acquired Illness or Injury Outcome: Ongoing, Progressing Intervention: Identify and Manage Fall Risk Flowsheets (Taken 11/09/2024 0000) Safety Promotion/Fall Prevention: activity supervised assistive device/personal items within reach clutter-free environment maintained fall prevention program maintained lighting adjusted mobility aid in reach nonskid shoes/slippers when out of bed safety round/check completed Intervention: Prevent Skin Injury Flowsheets (Taken 11/09/2024 0101) Body Position: weight shifting Skin Protection: protective footwear used incontinence pads utilized pectin skin barriers applied Intervention: Prevent and Manage VTE (Venous Thromboembolism) Risk Flowsheets (Taken 11/08/20241999) VTE Prevention/Management: SCDs (sequential compression devices) off medication Intervention: Prevent Infection Flowsheets (Taken 11/09/2024100) Infection Prevention: cohorting utilized hand hygiene promoted rest/sleep promoted single patient room provided Goal: Optimal Comfort and Wellbeing Outcome: Ongoing, Progressing Intervention: Monitor Pain and Promote Comfort Flowsheets (Taken 11/09/2024100) Pain Management Interventions: medication (see MAR) Intervention: Provide Person-Centered Care Flowsheets (Taken 11/09/2024100) Trust Relationship/Rapport: care explained emotional support provided empathic listening provided questions answered thoughts/feelings acknowledged Problem: Infection Goal: Absence of Infection Signs and Symptoms Outcome: Ongoing, Progressing Intervention: Prevent or Manage Infection Flowsheets Taken 11/09/2024100 Infection Management: aseptic technique maintained Fever Reduction/Comfort Measures: lightweight bedding lightweight clothing fluid intake increased Taken 11/08/20241999 Isolation Precautions: precautions maintained protective Problem: Comorbidity Management Goal: Maintenance of Asthma Control Outcome: Ongoing, Progressing Intervention: Maintain Asthma Symptom Control Flowsheets (Taken 11/09/2024100) Medication Review/Management: medications reviewed Goal: Maintenance of Behavioral Health Symptom Control Outcome: Ongoing, Progressing Intervention: Maintain Behavioral Health Symptom Control Flowsheets (Taken 11/09/2024100) Medication Review/Management: medications reviewed Goal: Maintenance of COPD Symptom Control Outcome: Ongoing, Progressing Intervention: Maintain COPD (Chronic Obstructive Pulmonary Disease) Symptom Control Flowsheets (Taken 11/09/2024100) Breathing Techniques/Airway Clearance: deep/controlled cough encouraged Medication Review/Management: medications reviewed Goal: Blood Glucose Level Within Target Range Outcome: Ongoing, Progressing Intervention: Monitor and Manage Glycemia Flowsheets (Taken 11/09/2024100) Medication Review/Management: medications reviewed Goal: Maintenance of Heart Failure Symptom Control Outcome: Ongoing, Progressing Intervention: Maintain Heart Failure Management Flowsheets (Taken 11/09/2024100) Medication Review/Management: medications reviewed Goal: Blood Pressure in Desired Range Outcome: Ongoing, Progressing Intervention: Maintain Blood Pressure Management Flowsheets (Taken 11/09/2024100) Medication Review/Management: medications reviewed Goal: Maintenance of Osteoarthritis Symptom Control Outcome: Ongoing, Progressing Intervention: Maintain Osteoarthritis Symptom Control Flowsheets (Taken 11/09/2024100) Activity Management: activity adjusted per tolerance Assistive Device Utilized: four wheel walker Medication Review/Management: medications reviewed Goal: Bariatric Home Regimen Maintained Outcome: Ongoing, Progressing Intervention: Maintain and Manage Postbariatric Surgery Care Flowsheets (Taken 11/09/2024100) Medication Review/Management: medications reviewed Goal: Maintenance of Seizure Control Outcome: Ongoing, Progressing Intervention: Maintain Seizure Symptom Control Flowsheets (Taken 11/09/2024100) Sensory Stimulation Regulation: quiet environment promoted television on Medication Review/Management: medications reviewed Seizure Precautions: activity supervised clutter-free environment maintained Problem: Fall Injury Risk Goal: Absence of Fall and Fall-Related Injury Outcome: Ongoing, Progressing Intervention: Identify and Manage Contributors Flowsheets (Taken 11/09/2024100) Medication Review/Management: medications reviewed Self-Care Promotion: independence encouraged BADL personal objects within reach BADL personal routines maintained Intervention: Promote Injury-Free Environment Flowsheets (Taken 11/09/2024 0000) Safety Promotion/Fall Prevention: activity supervised assistive device/personal items within reach clutter-free environment maintained fall prevention program maintained lighting adjusted mobility aid in reach nonskid shoes/slippers when out of bed safety round/check completed Problem: Skin Injury Risk Increased Goal: Skin Health and Integrity Outcome: Ongoing, Progressing Intervention: Optimize Skin Protection Flowsheets (Taken 11/09/2024100) Activity Management: activity adjusted per tolerance Pressure Reduction Techniques: frequent weight shift encouraged heels elevated off bed rest period provided between sit times Pressure Reduction Devices: positioning supports utilized Skin Protection: protective footwear used incontinence pads utilized pectin skin barriers applied Head of Bed (HOB) Positioning: HOB elevated Intervention: Promote and Optimize Oral Intake Flowsheets (Taken 11/09/2024100) Oral Nutrition Promotion: physical activity promoted rest periods promoted social interaction promoted Nutrition Interventions: diet adjustment recommended Problem: Lower Extremity Revascularization Goal: Absence of Bleeding Outcome: Ongoing, Progressing Intervention: Monitor and Manage Bleeding Flowsheets (Taken 11/09/2024100) Bleeding Management: dressing monitored Goal: Effective Bowel Elimination Outcome: Ongoing, Progressing Intervention: Enhance Bowel Motility and Elimination Flowsheets (Taken 11/09/2024100) Bowel Motility Enhancement: ambulation promoted Goal: Fluid and Electrolyte Balance Outcome: Ongoing, Progressing Intervention: Monitor and Manage Fluid and Electrolyte Balance Flowsheets (Taken 11/09/2024100) Fluid/Electrolyte Management: fluids provided Goal: Absence of Infection Signs and Symptoms Outcome: Ongoing, Progressing Intervention: Prevent or Manage Infection Flowsheets (Taken 11/09/2024100) Infection Management: aseptic technique maintained Fever Reduction/Comfort Measures: lightweight bedding lightweight clothing fluid intake increased Goal: Anesthesia/Sedation Recovery Outcome: Ongoing, Progressing Intervention: Optimize Anesthesia Recovery Flowsheets Taken 11/09/2024100 Administration (IS): self-administered instruction provided, follow-up Taken 11/09/2024 0000 Safety Promotion/Fall Prevention: activity supervised assistive device/personal items within reach clutter-free environment maintained fall prevention program maintained lighting adjusted mobility aid in reach nonskid shoes/slippers when out of bed safety round/check completed Goal: Optimal Pain Control and Function Outcome: Ongoing, Progressing Intervention: Prevent or Manage Pain Flowsheets (Taken 11/09/2024100) Pain Management Interventions: medication (see MAR) Diversional Activities: television smartphone Goal: Nausea and Vomiting Relief Outcome: Ongoing, Progressing Goal: Effective Urinary Elimination Outcome: Ongoing, Progressing Intervention: Monitor and Manage Urinary Retention Flowsheets (Taken 11/09/2024100) Urinary Elimination Promotion: other (see comments) Goal: Effective Oxygenation and Ventilation Outcome: Ongoing, Progressing Intervention: Optimize Oxygenation and Ventilation Flowsheets (Taken 11/09/2024100) Airway/Ventilation Management: airway patency maintained position adjusted oxygen therapy provided Head of Bed (HOB) Positioning: HOB elevated Goal: Effective Tissue Perfusion Outcome: Ongoing, Progressing Intervention: Optimize Tissue Perfusion Flowsheets (Taken 11/09/2024100) Body Position: weight shifting Pressure Reduction Devices: positioning supports utilized Problem: Diabetes Goal: Optimal Coping Outcome: Ongoing, Progressing Intervention: Support Wellbeing and Self-Management Success Flowsheets (Taken 11/09/2024100) Supportive Measures: decision-making supported Family/Support System Care: self-care encouraged Goal: Optimal Functional Ability Outcome: Ongoing, Progressing Intervention: Optimize Functional Ability Flowsheets (Taken 11/09/2024100) Activity Management: activity adjusted per tolerance Activity Assistance Provided: assistance, stand-by independent Assistive Device Utilized: four wheel walker Self-Care Promotion: independence encouraged BADL personal objects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 10:50 AM by Giovanna Junior APRN stable neuro exam Tetrahydrocannabinol (THC) use disorder, mild, abuse Overview Signed 10/19/2021 10:50 AM by Giovanna Junior APRN Encourage cessation Critical limb ischemia of left lower extremity Surgical wound infection Present on Admission: Wound infection 64yoM PMHx COPD, T2DM, HLD, HTN, RLS, CAD s/p PCI (on Xarelto) s/p pacemaker c/b left SANDIP pseudoaneurysm s/p thrombin injection 09/21/24, CLI s/p left femoral endarterectomy with EIA/OR ASSISTANT stenting 10/17/24, who presented to [facility] 11/[facility]/2024 with wound infection. POD # 1 s/p L groin/thigh washout and debridement. No arterial involvement noted intraoperatively. Dressings changed this am both wounds are clean with no purulence or warmth. Recovering well in the immediate post-op period. Plan Today: - Transition from insuling gtt to SSI - ID consulted, will likely need 4-6 weeks IV ABX and PICC. OPAT to evaluate - Vanc/Zosyn, f/u blood culture - Home meds resumed - wound care: packed wet to dry dressing. Daily dressing changes per vascular surgery Edited by: Melecio Echevarria DO at 11/07/2024 0991 Dispo: Continue Current Level of Care Melecio Echevarria DO Cosigned by Nathaly Nowak MD at 11/07/2024 10:17 AM EDT Associated attestation - Nathaly Nowak MD - 11/07/2024 10:17 AM EDT I saw and evaluated the patient with the resident/fellow. I discussed the case with the resident/fellow and agree with the findings and plan as documented. * Care Plan - Neil Larry RN - 11/06/2024 9:35 PM EDT Problem: Adult Inpatient Plan of Care Goal: Plan of Care Review Outcome: Ongoing, Progressing Flowsheets (Taken 11/06/2024 1502 by Brigitte Castellon RN) Progress: improving Plan of Care Reviewed With: patient Goal: Patient-Specific Goal (Individualized) Outcome: Ongoing, Progressing Flowsheets (Taken 11/06/2024 1400 by Brigitte Castellon RN) Patient/Family-Specific Goals (Include Timeframe): Patient will remain safe and free from fall or injury throughout this shift. Individualized Care Needs: safety Anxieties, Fears or Concerns: None stated Goal: Absence of Hospital-Acquired Illness or Injury Outcome: Ongoing, Progressing Intervention: Identify and Manage Fall Risk Flowsheets (Taken 11/06/2024 1502 by Brigitte Castellon, RN) Safety Promotion/Fall Prevention: activity supervised Intervention: Prevent Skin Injury Flowsheets (Taken 11/06/20241999 by Nelda Gerber) Body Position: turned weight shifting Intervention: Prevent and Manage VTE (Venous Thromboembolism) Risk Flowsheets (Taken 11/06/2024 194) VTE Prevention/Management: SCDs (sequential compression devices) on Intervention: Prevent Infection Flowsheets (Taken 11/06/2024 1502 by Brigitte Castellon, CHRISTIAN) Infection Prevention: environmental surveillance performed hand hygiene promoted personal protective equipment utilized Goal: Optimal Comfort and Wellbeing Outcome: Ongoing, Progressing Intervention: Monitor Pain and Promote Comfort Flowsheets (Taken 11/06/2024 0830 by Leigh Love RN) Pain Management Interventions: relaxation techniques promoted quiet environment facilitated pillow support provided Intervention: Provide Person-Centered Care Flowsheets (Taken 11/06/2024 1502 by Brigitte Castellon RN) Trust Relationship/Rapport: care explained choices provided emotional support provided empathic listening provided questions answered questions encouraged thoughts/feelings acknowledged Problem: Infection Goal: Absence of Infection Signs and Symptoms Outcome: Ongoing, Progressing Intervention: Prevent or Manage Infection Flowsheets Taken 11/06/2024 1502 by Brigitte Castellon RN Infection Management: aseptic technique maintained Taken 11/06/2024 1400 by Brigitte Castellon RN Isolation Precautions: protective Problem: Comorbidity Management Goal: Maintenance of Asthma Control Outcome: Ongoing, Progressing Intervention: Maintain Asthma Symptom Control Flowsheets (Taken 11/06/2024 1502 by Brigitte Castellon RN) Medication Review/Management: medications reviewed other (see comments) Goal: Maintenance of Behavioral Health Symptom Control Outcome: Ongoing, Progressing Intervention: Maintain Behavioral Health Symptom Control Flowsheets (Taken 11/06/2024 1502 by Brigitte Castellon RN) Medication Review/Management: medications reviewed other (see comments) Goal: Maintenance of COPD Symptom Control Outcome: Ongoing, Progressing Intervention: Maintain COPD (Chronic Obstructive Pulmonary Disease) Symptom Control Flowsheets (Taken 11/06/2024 1502 by Brigitte Castellon RN) Medication Review/Management: medications reviewed other (see comments) Goal: Blood Glucose Level Within Target Range Outcome: Ongoing, Progressing Intervention: Monitor and Manage Glycemia Flowsheets (Taken 11/06/2024 1502 by Brigitte Castellon RN) Medication Review/Management: medications reviewed other (see comments) Goal: Maintenance of Heart Failure Symptom Control Outcome: Ongoing, Progressing Intervention: Maintain Heart Failure Management Flowsheets (Taken 11/06/2024 1502 by Brigitte Castellon RN) Medication Review/Management: medications reviewed other (see comments) Goal: Blood Pressure in Desired Range Outcome: Ongoing, Progressing Goal: Maintenance of Osteoarthritis Symptom Control Outcome: Ongoing, Progressing Goal: Bariatric Home Regimen Maintained Outcome: Ongoing, Progressing Goal: Maintenance of Seizure Control Outcome: Ongoing, Progressing Problem: Fall Injury Risk Goal: Absence of Fall and Fall-Related Injury Outcome: Ongoing, Progressing Problem: Skin Injury Risk Increased Goal: Skin Health and Integrity Outcome: Ongoing, Progressing Intervention: Optimize Skin Protection Flowsheets Taken 11/06/20241999 by Nelda Gerber Head of Bed (HOB) Positioning: HOB elevated Taken 11/06/2024 1800 by Brigitte Castellon RN Activity Management: ambulated to bathroom back to bed Problem: Lower Extremity Revascularization Goal: Absence of Bleeding Outcome: Ongoing, Progressing Goal: Effective Bowel Elimination Outcome: Ongoing, Progressing Goal: Fluid and Electrolyte Balance Outcome: Ongoing, Progressing Goal: Absence of Infection Signs and Symptoms Outcome: Ongoing, Progressing Goal: Anesthesia/Sedation Recovery Outcome: Ongoing, Progressing Goal: Optimal Pain Control and Function Outcome: Ongoing, Progressing Goal: Nausea and Vomiting Relief Outcome: Ongoing, Progressing Goal: Effective Urinary Elimination Outcome: Ongoing, Progressing Goal: Effective Oxygenation and Ventilation Outcome: Ongoing, Progressing Goal: Effective Tissue Perfusion Outcome: Ongoing, Progressing * Significant Event - Melecio Echevarria DO - 11/06/2024 7:23 PM EDT Images from the original note were not included. [facility] Department of Surgery Division of Vascular Surgery Post Operative Check: Subjective: Procedure: Excisional debridement left groin (skin, subcutaneous tissue. Final measurements 10 x 7 x 6.5 cm) Excisional debridement left thigh (skin, subcutaneous tissue. Final measurements 8 x 2 x 3 cm) Patient currently reports feeling well. No nausea or vomiting . Voiding: spontaneously Flatus: no Diet: regular OOB: OOB/ambulate as tolerated Patient denies chest pain, shortness of breath, nausea and vomiting. Pain Control: [facility]. Currently well controlled. Objective: Vitals: Vitals: 11/06/24 1552 BP: (!) 162/69 Pulse: 81 Resp: Temp: 36.4 ??C (97.5 ??F) SpO2: 98% Output by Drain (mL) 11/04/24 0700 - 11/04/24 1859 11/04/24 1900 - 11/05/24 0659 11/05/24 0700 - 11/05/24 1859 11/05/24 1900 - 11/06/24 0659 11/06/24 0700 - 11/06/24 1859 11/06/24 1900 - 11/06/24 1924 Patient has no LDAs of requested type attached. Physical Exam: GEN: No apparent distress. Lethargic from anesthesia. NEURO: Awake, alert and oriented x3. No focal deficits. HENT: NCAT. Trachea appears midline. EYES: Symmetric lids. No visible conjunctival hemorrhage. CV: Appears well-perfused. Regular rhythm. Normal rate. DP/PT signals with doppler bilaterally RESP: Symmetric chest rise. Non-labored breathing. ABD: Soft non tender MSK: Moves all extremities. No obvious deformities. SKIN: Warm and dry. Without pallor. PSYCH: Appropriate mood and affect. Normal speech and content. Incisions: oozing LTD: PIV Laboratory: CBC WBC ?? Hgb ?? PLT ?? HCT ?? Coags: INR ?? PTT ?? antiXa ?? BMP Na ?? Cl ?? BUN ?? Gluc ?? K ?? CO2 ?? Creat ?? Ca ?? iCa ?? Mg ?? Phos ?? ABG pH ?? pCO2 ?? pO2 ?? SPO2 ?? FIO2 ?? HCO3 ?? BE ?? Lactate ?? LFTs AST ?? AlkPhos ?? T Prot ?? ALT ?? Bili ?? Alb ?? D.Bili ?? Assessment and Plan: Bev Borja is a 64 y.o. male who is s/p Excisional debridement left groin (skin, subcutaneous tissue. Final measurements 10 x 7 x 6.5 cm) excisional debridement left thigh (skin, subcutaneous tissue. Final measurements 8 x 2 x 3 cm) He is recovering appropriately in the current post op period. Will continue to monitor. Diet: Regular Anticoagulation/DVT ppx: Held Pain management: [facility] Level of care: Continue Current Level of Care I have answered and addressed all issues and concerns from the patient and nursing staff. I have notified senior resident/attending emr implementation specialist with any issues or concerns. Melecio Echevarria DO * Care Plan - Brigitte Castellon RN - 11/06/2024 3:07 PM EDT Problem: Adult Inpatient Plan of Care Goal: Plan of Care Review Outcome: Ongoing, Progressing Flowsheets (Taken 11/06/2024 1502) Progress: improving Plan of Care Reviewed With: patient Goal: Patient-Specific Goal (Individualized) Outcome: Ongoing, Progressing Flowsheets (Taken 11/06/2024 1400) Patient/Family-Specific Goals (Include Timeframe): Patient will remain safe and free from fall or injury throughout this shift. Individualized Care Needs: safety Anxieties, Fears or Concerns: None stated Goal: Absence of Hospital-Acquired Illness or Injury Outcome: Ongoing, Progressing Intervention: Identify and Manage Fall Risk Flowsheets (Taken 11/06/2024 1502) Safety Promotion/Fall Prevention: activity supervised Intervention: Prevent Infection Flowsheets (Taken 11/06/2024 1502) Infection Prevention: environmental surveillance performed hand hygiene promoted personal protective equipment utilized Goal: Optimal Comfort and Wellbeing Outcome: Ongoing, Progressing Intervention: Provide Person-Centered Care Flowsheets (Taken 11/06/2024 1502) Trust Relationship/Rapport: care explained choices provided emotional support provided empathic listening provided questions answered questions encouraged thoughts/feelings acknowledged Problem: Infection Goal: Absence of Infection Signs and Symptoms Outcome: Ongoing, Progressing Intervention: Prevent or Manage Infection Flowsheets Taken 11/06/2024 1502 Infection Management: aseptic technique maintained Taken 11/06/2024 1400 Isolation Precautions: protective Problem: Comorbidity Management Goal: Maintenance of Asthma Control Outcome: Ongoing, Progressing Intervention: Maintain Asthma Symptom Control Flowsheets (Taken 11/06/2024 1502) Medication Review/Management: medications reviewed other (see comments) Goal: Maintenance of Behavioral Health Symptom Control Outcome: Ongoing, Progressing Intervention: Maintain Behavioral Health Symptom Control Flowsheets (Taken 11/06/2024 1502) Medication Review/Management: medications reviewed other (see comments) Goal: Maintenance of COPD Symptom Control Outcome: Ongoing, Progressing Intervention: Maintain COPD (Chronic Obstructive Pulmonary Disease) Symptom Control Flowsheets (Taken 11/06/2024 1502) Medication Review/Management: medications reviewed other (see comments) Goal: Blood Glucose Level Within Target Range Outcome: Ongoing, Progressing Intervention: Monitor and Manage Glycemia Flowsheets (Taken 11/06/2024 1502) Medication Review/Management: medications reviewed other (see comments) Note: Monitoring glucose via ACHS checks. Goal: Maintenance of Heart Failure Symptom Control Outcome: Ongoing, Progressing Intervention: Maintain Heart Failure Management Flowsheets (Taken 11/06/2024 1502) Medication Review/Management: medications reviewed other (see comments) Goal: Blood Pressure in Desired Range Outcome: Ongoing, Progressing Intervention: Maintain Blood Pressure Management Flowsheets (Taken 11/06/2024 1502) Medication Review/Management: medications reviewed other (see comments) Goal: Maintenance of Osteoarthritis Symptom Control Outcome: Ongoing, Progressing Intervention: Maintain Osteoarthritis Symptom Control Flowsheets (Taken 11/06/2024 1502) Medication Review/Management: medications reviewed other (see comments) Goal: Bariatric Home Regimen Maintained Outcome: Ongoing, Progressing Goal: Maintenance of Seizure Control Outcome: Ongoing, Progressing Problem: Fall Injury Risk Goal: Absence of Fall and Fall-Related Injury Outcome: Ongoing, Progressing Intervention: Identify and Manage Contributors Flowsheets (Taken 11/06/2024 1502) Medication Review/Management: medications reviewed other (see comments) Note: Bed alarm set Intervention: Promote Injury-Free Environment Flowsheets (Taken 11/06/2024 1502) Safety Promotion/Fall Prevention: activity supervised Problem: Skin Injury Risk Increased Goal: Skin Health and Integrity Outcome: Ongoing, Progressing Intervention: Optimize Skin Protection Flowsheets (Taken 11/06/2024 1400) Activity Management: bedrest Problem: Lower Extremity Revascularization Goal: Absence of Bleeding Outcome: Ongoing, Progressing Goal: Effective Bowel Elimination Outcome: Ongoing, Progressing Intervention: Enhance Bowel Motility and Elimination Flowsheets (Taken 11/06/2024 1502) Bowel Motility Enhancement: fluid intake encouraged Goal: Fluid and Electrolyte Balance Outcome: Ongoing, Progressing Goal: Absence of Infection Signs and Symptoms Outcome: Ongoing, Progressing Intervention: Prevent or Manage Infection Flowsheets (Taken 11/06/2024 1502) Infection Management: aseptic technique maintained Goal: Anesthesia/Sedation Recovery Outcome: Ongoing, Progressing Intervention: Optimize Anesthesia Recovery Flowsheets (Taken 11/06/2024 1502) Safety Promotion/Fall Prevention: activity supervised Goal: Optimal Pain Control and Function Outcome: Ongoing, Progressing Goal: Nausea and Vomiting Relief Outcome: Ongoing, Progressing Goal: Effective Urinary Elimination Outcome: Ongoing, Progressing Goal: Effective Oxygenation and Ventilation Outcome: Ongoing, Progressing Intervention: Optimize Oxygenation and Ventilation Flowsheets (Taken 11/06/2024 1502) Airway/Ventilation Management: airway patency maintained Goal: Effective Tissue Perfusion Outcome: Ongoing, Progressing * Anesthesia PACU Signout - Dorota Camara MD - 11/06/2024 12:53 PM EDT Patient: Bev Borja Patient is s/p Procedure(s) and Anesthesia Type: * Left groin exploration and washout, possible wound vac placement - Choice. Patient remains HDS on room air, neurologically appropriate, pain is controlled, and tolerating PO w/o N/V. Patient is appropriate for discharge from PACU to inpatient unit for continued postop care. Anesthesia Type: general Vitals Value Taken Time BP 153/53 11/06/24 12:50 Temp 36.6 ??C (97.8 ??F) 11/06/24 12:45 Pulse 70 11/06/24 12:52 Resp 17 11/06/24 12:52 SpO2 94 % 11/06/24 12:52 Vitals shown include unfiled device data. Anesthesia PACU Signout Patient location during evaluation: PACU Patient participation: complete - patient participated Level of consciousness: baseline and awake Pain management: adequate (pain score 0-3) Airway patency: natural airway Hydration status: acceptable PONV: none Cardiovascular status: acceptable and hemodynamically stable Respiratory status: acceptable, spontaneous ventilation, unassisted and nonlabored ventilation Discharge Disposition: admit to inpatient unit Cosigned by Marybel Carlos MD at 11/06/2024 12:56 PM EDT Associated attestation - Marybel Carlos MD - 11/06/2024 12:56 PM EDT Agree with above assessment and evaluation from resident/FACETOR. * Consults - Oscar Appiah MD - 11/06/2024 12:51 PM EDTAssociated Order(s): Inpatient consult to Infectious Diseases Inpatient consult to Infectious Diseases Consult performed by: Dotty Sethi MD Consult ordered by: Nathaly Nowak MD GENERAL INFECTIOUS DISEASE INPATIENT CONSULT NOTE Reason for Consult: left groin wound, abx recommendations Attending: Nathaly Nowak MD Date of admission: 11/05/2024 History of Present Illness: Bev Borja is a 64 y.o. male with history of COPD, CAD s/p PCI (on Xarelto) s/p pacemaker c/b left SANDIP pseudoaneurysm s/p thrombin injection 09/21/24, chronic limb ischemia s/p left femoral endarterectomy with external iliac/common femoral artery stenting 10/17/24, T2DM, HLD, HTN who was transferred to ED on 11/05 after presenting to OSH due to increasing pain from femoral and leg incision sites from left femoral endarterectomy with external iliac/common femoral artery stenting performed on 10/17. Pt was seen and examined at bedside. History was obtained from patient and medical records. Pt reports that since 10/17, he has had problems with his wound. He notes pain and discharge. On exam, pt was recently out of the OR and reports that he feels too sedated to answer many questions. Ptpresented to OSH on 11/05 due to his left groin pain and drainage and then was transferred to ED.In the ED, he was afebrile. Labs at OSH were obtained showing WBC 11.3, Hgb 9.2, Plt 596, Na 131, Cl 103, K 5.2, Cl 25, bicarb 24, Cr 0.9, glucose 218. 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 It did show wound with gas and fluid in the groin and knee and a 3 x 3 cm possible collection in the left groin. He was given Vancomycin and Zosyn at the OSH. On 11/06, pt went to the OR with vascular surgery for left groin exploration and washout. Pt is afebrile with no leukocytosis (WBC: 9.7). Pt currently on Zosyn and Vanc. Review of Systems: Review of Systems Reason unable to perform ROS: Pt recently out of OR. Reports that he feels too sedated to answer many questions. PMH: Past Medical History[1] PSH: Surgical History[2] FH: Family History[3] SH: Social History[4] Allergies: Allergies[5] Objective: Visit Vitals BP (!) 145/64 (BP Location: Left arm, Patient Position: Lying) Pulse 69 Temp 36.6 ??C (97.8 ??F) (Oral) Resp 22 Ht 1.702 m (5' 7 ) Wt 88.5 kg (195 lb 1.7 oz) SpO2 91% BMI 30.56 kg/m?? Smoking Status Former BSA 2.05 m?? Physical Exam Constitutional: General: He is sleeping. He is not in acute distress. Cardiovascular: Rate and Rhythm: Normal rate and regular rhythm. Pulmonary: Effort: Pulmonary effort is normal. Breath sounds: Normal breath sounds. Abdominal: Palpations: Abdomen is soft. Tenderness: There is no abdominal tenderness. Skin: General: Skin is warm and dry. Comments: Bandage present on left groin Neurological: General: No focal deficit present. Mental Status: He is easily aroused. Psychiatric: Mood and Affect: Mood normal. Behavior: Behavior normal. Patient records reviewed and pertinent findings outlined below. Labs: CBC WBC 9.70 Hb 8.8 (L) Plt 542 (H) Hct 26.2 (L) ANC ?? BMP Na 136 Cl 104 BUN 20 Glu 207 (H) K 4.5 Co2 22 Cr 0.92 Mg 2.2, Phos 3.2 LFT AST ?? AlkPhos ?? T Prot ?? ALK ?? Bili ?? Alb ?? D.Bili ?? Medications: Current Medications[6] Imaging/Studies: FL Less than 1 Hour Intraoperative Images were obtained for surgical purposes. See Terrell Gautam's surgical note in the patient's chart for the findings. Cardiac Device Check - PRE-OR [facility]: Pre-operative CIED Report Assessment and Sara-Procedural Reommendations: Name: Bev Borja Date: 10/17/2024 : 1960 Age: 64 y.o. 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 Lead integrity test [...] can be found in EPIC media file. Micro: No results found for the last 90 days. Results Procedure Component Value Units Date/Time Anaerobic Culture [[id number]] Collected: 11/06/241127 Order Status: Sent Specimen: Swab from Other (specify site) Updated: 11/06/241219 Fungal Culture, Routine [[id number]] Collected: 11/06/241127 Order Status: Sent Specimen: Swab from Other (specify site) Updated: 11/06/24 122 Routine Culture and Gram Stain [[id number]] Collected: 11/06/241127 Order Status: Sent Specimen: Swab from Other (specify site) Updated: 11/06/241219 Abscess Culture and Gram Stain [[id number]] Collected: 11/06/241127 Order Status: Canceled Specimen: Swab from Other (specify site) Updated: 11/06/241219 Anaerobic Culture [[id number]] Collected: 11/06/241128 Order Status: Sent Specimen: Swab from Other (specify site) Updated: 11/06/24 121 Fungal Culture, Routine [[id number]] Collected: 11/06/241128 Order Status: Sent Specimen: Swab from Other (specify site) Updated: 11/06/241218 Routine Culture and Gram Stain [[id number]] Collected: 11/06/241128 Order Status: Sent Specimen: Swab from Other (specify site) Updated: 11/06/241218 Abscess Culture and Gram Stain [[id number]] Collected: 11/06/241128 Order Status: Canceled Specimen: Swab from Other (specify site) Updated: 11/06/241218 Anaerobic Culture [[id number]] Collected: 11/06/241133 Order Status: Sent Specimen: Tissue from Other (specify site) Updated: 11/06/241217 Tissue Culture and Gram Stain [[id number]] Collected: 11/06/241133 Order Status: Sent Specimen: Tissue from Other (specify site) Updated: 11/06/241217 AFB Culture, Non Respiratory Source and Acid Fast Stain [[id number]] Collected: 11/06/241133 Order Status: Sent Specimen: Tissue from Other (specify site) Updated: 11/06/241217 Fungal Culture, Tissue and ISIDRO [[id number]] Collected: 11/06/24 1134 Order Status: Sent Specimen: Tissue from Other (specify site) Updated: 11/06/24 1218 Blood Culture (Aerobic/Anaerobet Set) [[id number]] Collected: 11/06/24106 Order Status: Completed Specimen: Blood from AC, Left Updated: 11/06/24402 Culture Culture in lab Blood Culture (Aerobic/Anaerobet Set) [[id number]] Collected: 11/06/24106 Order Status: Completed Specimen: Blood from Hand, Right Updated: 11/06/24402 Culture Culture in lab Micro: BC 11/06: pending Wound culture 11/06: pending Antibiotics: Zosyn: 11/05 -P Vancomycin: 11/05 - P Cefazolin: 11/06 Assessment: Patient Summary: Bev Borja is a 64 y.o. male with PMHx of COPD, CAD s/p PCI (on Xarelto) s/p pacemaker c/bleft SANDIP pseudoaneurysm s/p thrombin injection 09/21/24, chronic limb ischemia s/p left femoral endarterectomy with external iliac/common femoral artery stenting 10/17/24, T2DM, HLD, HTN who was transferred to ED on 11/05 after presenting to OSH due to increasing pain from femoral and leg incision sites from left femoral endarterectomy with external iliac/common femoral artery stenting performed on 10/17. In the ED, he was afebrile. WBC 11.3. 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 It did show wound with gas and fluid in the groin and knee and a 3 x 3 cm possible collection in the left groin. He was given Vancomycin and Zosyn at the OSH. On 11/06, pt went to the [facility] vascular surgery for left groin exploration and washout. Pt is afebrile with no leukocytosis (WBC: 9.7). Pt currently on Zosyn and Vanc. ID was consulted for antibiotic recommendations. We would recommend continuing vancomycin and zosyn while waiting for results of cultures. Pt will likely require 4-6 weeks of IV abx and PICC line. OPAT to evaluate. Pt may need chronic suppression following 4-6 weeks of IV abx. ID Problem List: #Left Groin Wound Recommendations: - Continue vancomycin and zosyn, pending results of cultures - Pt will likely need 4-6 weeks of IV abx and require PICC line, OPAT to evaluate the pt - Trend CBC w/diff, CRP, CMP, BMP to monitor for toxicity and ensure appropriate response to treatment - Plan of care and recommendations discussed with patient's primary team. Thank you for allowing us to participate in this patient's care. GEN ID will follow. Dotty Sethi MD PGY1 History, assessment, and plan discussed with ID attending, Dr. Appiah I saw and evaluated the patient with the student/resident/fellow. I discussed the case with the student/resident/fellow and agree with the findings and plan as documented. I personally performed the exam and medical decision-making. I reviewed and further edited the note. Oscar Appiah MD Infectious Diseases Staff Physician I spent greater than 82 minutes performing the following components of the encounter (on the day ofthe encounter): reviewing history, examining the patient, reviewing imaging and/or labs and/or other imaging results, counseling the patient and family/caregiver. Greater than 50% of the time spent on the encounter was [id number] providing direct patient care, counseling for the patient/caregiver, and care coordination. [1] Past Medical History: Diagnosis Date Arthritis Old myocardial infarction History of myocardial infarction [2] Past Surgical History: Procedure Laterality Date ANKLE SURGERY Right CARDIAC PACEMAKER PLACEMENT CAROTID ENDARTERECTOMY N/A 2017 Endarterectomy Carotid Artery from [employer] CORONARY ANGIOPLASTY Left Coronary Angiography With Concomitant Left Heart Catheterization from [employer] CORONARY ARTERY BYPASS GRAFT N/A 2018 3V ELBOW SURGERY Right ENDARTERECTOMY Left 10/17/2024 common/SFA/Profunda thromboendarterectomy, EIA/OR ASSISTANT stent HERNIA REPAIR KNEE ARTHROSCOPY Left VASCULAR SURGERY Left 09/21/2024 OR ASSISTANT pseudoaneurym injection [3] Family History Problem Relation Name Age of Onset COPD Mother Diabetes Sister Anesthesia problems Neg Hx Malig Hyperthermia Neg Hx [4] Social History Tobacco Use Smoking status: Former Types: Cigarettes Passive exposure: Past Smokeless tobacco: Never Tobacco comments: Smoked 1-2 PPD for at least 30 years. Quit 2017 Vaping Use Vaping status: Never Used Substance Use Topics Alcohol use: Not Currently Comment: holidays/special occasions Drug use: Yes Types: Marijuana Comment: daily marijuana, 1-2 blunts/day [5] No Known Allergies [6] Current Facility-Administered Medications Medication Dose Route Frequency Provider Last Rate Last Admin [Transfer Hold] acetaminophen (Tylenol) tablet 1,000 mg 1,000 mg Oral q6h [facility] Anthony Reyes MD 1,000 mg at 11/06/24 0559 ceFAZolin (Ancef) injection 2 g 2 g Intravenous Once Jerry Holcomb MD clopidogrel (Plavix) tablet 75 mg 75 mg Oral Daily Jerry Holcomb MD glucose (Glutose) 40 % oral gel 15-30 grams of glucose 15-30 grams of glucose Sublingual q15 min PRN Jerry Holcomb MD Or dextrose 10 % (D10W) bolus 125 mL 125 mL Intravenous q15 min PRN Jerry Holcomb MD Or dextrose 10 % (D10W) bolus 250 mL 250 mL Intravenous q15 min PRN Jerry Holcomb MD Or glucagon (human recombinant) injection 1 mg 1 mg Intramuscular q15 min PRN Jerry Holcomb MD droperidol (Inapsine) injection 0.625 mg 0.625 mg Intravenous Once PRN Asad Lechuga CRNA, DNP fentaNYL (Sublimaze) injection 25 mcg 25 mcg Intravenous q5 min PRN Asad Lechuga CRNA, DNP fentaNYL (Sublimaze) injection 50 mcg 50 mcg Intravenous q5 min PRN Asad Lechuga CRNA, DNP HYDROmorphone (Dilaudid) injection 0.5 mg 0.5 mg Intravenous q10 min PRN Asad Lechuga CRNA, DNP HYDROmorphone (Dilaudid) injection 0.5 mg 0.5 mg Intravenous q3h PRN Jerry Holcomb MD insulin glargine-yfgn 100 UNIT/ML injection 15 Units 15 Units Subcutaneous BID Jerry Holcomb MD insulin lispro (Admelog) 100 units/mL injection - Correction - Resistant Dose 0- 10 Units Subcutaneous TID with meals Jerry Holcomb MD insulin lispro (Admelog) injection - Correction - Nighttime Dose 0-3 Units Subcutaneous Twice at night Jerry Holcomb MD ipratropium-albuterol (Duo-Neb) 0.5-2.5 mg/3 mL nebulizer solution 3 mL 3 mL Nebulization Once PRN Asad Lechuga CRNA, DNP [START ON 11/07/2024] lisinopril tablet 10 mg 10 mg Oral Daily Jerry Holcomb MD [Transfer Hold] methocarbamol (Robaxin) tablet 500 mg 500 mg Oral 4x daily Anthony Reyes MD 500 mg at 11/06/24137 [Transfer Hold] metoprolol tartrate (Lopressor) tablet 100 mg 100 mg Oral BID Anthony Reyes MD 100 mg at 11/06/24137 naloxone (Narcan) injection 0.4 mg 0.4 mg Intravenous PRN Asad Lechuga CRNA, DNP [Transfer Hold] ondansetron ODT (Zofran-ODT) disintegrating tablet 4 mg 4 mg Oral q6h PRN Anthony Reyes MD Or [Transfer Hold] ondansetron (Zofran) injection 4 mg 4 mg Intravenous q6h PRN Anthony Reyes MD Or [Transfer Hold] ondansetron (Zofran) 4 MG/5ML solution 4 mg 4 mg Oral q6h PRN Anthony Reyes MD [Transfer Hold] oxyCODONE (Roxicodone) immediate release tablet 5 mg 5 mg Oral q6h PRN Anthony Reyes MD 5 mg at 11/06/24137 Or [Transfer Hold] oxyCODONE (Roxicodone) immediate release tablet 10 mg 10 mg Oral q6h PRN Anthony Reyes MD oxyCODONE (Roxicodone) immediate release tablet 5 mg 5 mg Oral Once PRN Asad Lechuga CRNA, DNP Or oxyCODONE (Roxicodone) immediate release tablet 10 mg 10 mg Oral Once PRN Asad Lechuga CRNA, DNP piperacillin-tazobactam (Zosyn) 3.375 g in sodium chloride 0.9% 100 mL IVPB (vial adapter required)3.375 g Intravenous q8h Reid Daniels MD [Transfer Hold] Povidone-Iodine 5 % swab solution 1 Application 1 Application Nasal Once Jerry Holcomb MD [Transfer Hold] pravastatin (Pravachol) tablet 40 mg 40 mg Oral Nightly Anthony Reyes MD 40 mg at 11/06/24137 [Transfer Hold] rOPINIRole (Requip) tablet 2 mg 2 mg Oral BID Anthony Reyes MD 2 mg at 11/06/24 0138 [Transfer Hold] sodium chloride 0.9 % flush 10 mL 10 mL Intravenous q12h Anthony Reyes MD 10 mL at 11/06/24 0140 And [Transfer Hold] sodium chloride 0.9 % flush 10 mL 10 mL Intravenous PRN Anthony Reyes MD [Transfer Hold] sodium chloride 0.9 % flush 10 mL 10 mL Intravenous q12h Jerry Holcomb MD And [Transfer Hold] sodium chloride 0.9 % flush 10 mL 10 mL Intravenous PRN Jerry Holcomb MD [Transfer Hold] tamsulosin (Flomax) 24 hr capsule 0.4 mg 0.4 mg Oral q PM Anthony Reyes MD vancomycin in NS (Vancocin) IVPB 1,250 mg 1,250 mg Intravenous q12h Nathaly Nowak MD Stopped at 11/06/24 0446 * Progress Notes - Mariia Macedo - 11/06/2024 12:27 PM EDT Case Management Adult Progress Note Bev Borja 64 y.o. male CSN: [id number] Admission: 11/05/2024 9:45 PM Primary Problem: Wound infection Patient in OR today. SW will continue to follow. Mariia Macedo BELT CLEANER * Op Note - Jerry Holcomb MD - 11/06/2024 11:23 AM EDT Operative Note Date: 11/06/24 Location: [facility] OR Name: Bev Borja, : 1960, Diagnoses: Pre-op Diagnosis Surgical wound infection Post-op Diagnosis Surgical wound infection Procedure(s): Excisional debridement left groin (skin, subcutaneous tissue. Final measurements 10 x 7 x 6.5 cm) Excisional debridement left thigh (skin, subcutaneous tissue. Final measurements 8 x 2 x 3 cm) Attending Surgeon(s): * Nathaly Nowak - Primary Event Planning Intern(s): * Luna Beckett MD - Resident - Assisting * Jerry Holcomb MD - Fellow Anesthesia: Choice ASA: III Blood Administration: Blood Product Administration History None Estimated Blood Loss: 10 cc Specimen: Specimens ID Source Frozen? A Other (specify site) Description: left groin culture B Other (specify site) Description: left thigh culture C Other (specify site) Description: left groin tissuefor culture Findings: Open wound extends to bovine pericardial patch. No evidence of overt infection. Soft tissue layer closed over patched artery. Indications: Bev Borja is an 64 y.o. male who is having surgery for Surgical wound infection. Patient with a history of a left femoral endarterectomy with bovine pericardial patch angioplasty and left covered external iliac artery stent. Patient presents with open groin/thigh wounds. Decision was made for washout and excisional debridement. Risks of the procedure including bleeding, infection, damage to surrounding structures, need for repeated procedures were all discussed with the patient. After understanding these risks, patient elected to proceed to the operating room. Narrative: Patient was laid supine on the operating room table. General anesthesia was induced and the patientwas intubated. The left lower extremity was prepped and draped in the usual sterile fashion. A preoperative time-out was performed, preoperative antibiotics were administered, and SCD was placed in the right lower extremity. We began by opening the left groin wound. The open wound was noted to extent to the femoral artery. The patch was able to be visualized in the wound bed. There were no signs of overt infection. Cultures were sent. This area was thoroughly pulse lavaged with 2 L of saline and all fibrinous tissue was debrided. Debridement included skin and subcutaneous tissue. Final measure ments as above. Same process was repeated for the left thigh wound. Skin and subcutaneous tissue were debrided. Final measurements as above. Interrupted 2-0 Vicryl sutures were used to close a layer soft tissue over the segment of the exposed artery. Both wounds were packed with wet-to-dry dressing. All counts were correct at the end of the case x2. Patient was extubated and transferred to PACU in stable condition. Please note that Dr. Nathaly Nowak was present throughout this entire operation. There were NO signs of surgical site infection (SSI) present at the time of surgery (PATOS). Complications: None; patient tolerated the procedure well. Submitted by: Jerry Holcomb MD - 11/06/2024 Cosigned by Nathaly Nowak MD at 11/06/2024 12:35 PM EDT * Progress Notes - Edwin Mansfield - 11/06/2024 8:25 AM EDT Patient to OR today for left groin exploration and washout, possible wound vac placement - History and physical note at admission/most recent progress note reviewed and with no changes - The risks, benefits, indications, contraindications, and surgical alternatives were explained to the patient. Specifically, the risks of surgery, including bleeding, infection, injury to nearby organs or structures, need for additional surgery or procedures, wound complications, and complicationsof general anesthesia. Commonly associated risks of the procedure where also discussed with the patient in detail. The patient participated in the discussion and was given an opportunity to ask questions. All questions where answered to the patient's verbal satisfaction. Written and informed consent was then signed and is located in the patient's chart. - Patient verbally expressed agreement. Written consent obtained and located in chart - NPO since midnight Edwin Mansfield Cosigned by Nathaly Nowak MD at 11/06/2024 9:41 AM EDT Associated attestation - Nathaly Nowak MD - 11/06/2024 9:41 AM EDT I saw and evaluated the patient with the resident/fellow. I discussed the case with the resident/fellow and agree with the findings and plan as documented. * Progress Notes - Jorge Alberto Palomo, PharmD - 11/06/2024 1:48 AM EDT Pharmacokinetic Consult - Therapeutic Drug Monitoring HPI and Hospital Course: Bev Borja is a 64 y.o. male presenting with a wound infection. Pharmacy was consulted for management of vancomycin. Dose History: Recent Vancomycin Admin No antibiotic orders with administrations found. Wt Readings from Last 1 Encounters: 11/06/24 88.5 kg (195 lb 1.7 oz) BMI: 30.56 kg/m?? Creatinine, Plasma (mg/dL) Date/Time Value 11/06/2024 0107 0.92 10/19/2024 0825 0.76 10/18/2024 0209 1.17 Estimated Creatinine Clearance: 85 mL/min (by C-G formula based on SCr of 0.92 mg/dL). Assessment Estimated kinetic evaluation utilizing population kinetics: Vancomycin Dosing Method Vancomycin Dose Calculation Method Area under the curve (AUC) dosing General Parameters for Vancomycin Dose Calculation (AUC) Dosing Weight 88.5 kg (195 lb 1.7 oz) Vancomycin clearance calculation method Matzke equation Administer over 90 minutes AUC 24 hr goal (mg-hr/L) 500 mg??hr/L Estimated creatinine clearance (mL/min 90 mL/min Matzke Equation Parameters for Vancomycin Dose Calculation (AUC) Estimated vancomycin Vd (0.7 L/kg typically) 0.7 L/kg (Typical) Crass Equation Parameters for Vancomycin Dose Calculation (AUC) Serum creatinine (mg/dL) 0.9 mg/dL Recommended Initial Vancomycin Dosing Estimated Ke (hr ^-1) 0.0791 hr^-1 Estimated half-life (hr) 8.76 hr Estimated vancomycin Cl (L/hr) 4.9 Recommended TDD (mg) 2450 Plan 1. Loading dose not required. 1.75 grams of vancomycin given at OSH @ 1512 on 11/05. 2. Recommend initiating vancomycin 1250 mg IV q12h for a total daily dose of 2500 mg and predicted AUC of 510 mg??hr/L. 3. Monitor renal function (Scr and BUN) and UOP at least 2-3x/week or more frequently if renal function changes. 4. Obtain vancomycin levels around the 4th dose of new regimen if therapy is to be continued. Pharmacy will continue to follow. Submitted by: Jorge Alberto Palomo, PharmTobias 11/06/2024 1:46 AM * H&P - Anthony Reyes MD - 11/06/2024 12:19 AM EDTAssociated Order(s): Consult to Vascular Surgery - Surg Red Images from the original note were not included. [facility] Department of Surgery Division of Vascular Surgery History & Physical Note Reason for Consult: Wound infection Requesting Service: Emergency Department Consult Date and Time: Consult to Vascular Surgery - Surg Red Consult performed by: Anthony Reyes MD Consult ordered by: Jose G Henderson DO Subjective History of Present Illness: Chief Complaint: Wound infection Bev Borja is a 64 y.o. male with PMHx significant for COPD, CAD s/p PCI (on Xarelto) s/p pacemaker c/b left SANDIP pseudoaneurysm s/p thrombin injection 09/21/24, chronic limb ischemia s/p leftfemoral endarterectomy with external iliac/common femoral artery stenting 10/17/24, T2DM, HLD, HTN, RLS who presented to the [facility] on 11/05/2024 with problems with his wounds. Patient reports problems with his wounds ever since going home. He reports having to ask her friend to come over to help him remove his Prevena wound VAC. He is unable to give me an exact timeline of when the wound started to the his but says he had problems when the VAC was taken down. He has noticed drainage from his knee and groin incision that he describes as yellow and liquid. He denies fevers, chills, chest pain, shortness of breath, or any other symptoms. He reports taking his anticoagulation as prescribed. He denies smoking or alcohol use. In the emergency department and he is afebrile and hemodynamically normal on room air. He initiallypresented to an outside hospital where labs were obtained showing WBC 11.3, Hgb 9.2, Plt 596, Na 131, Cl 103, K 5.2, Cl 25, bicarb 24, Cr 0.9, glucose 218. CTA was obtained showing resolution of leftfemoral artery sooner aneurysm. It did show wound with gas and fluid in the groin and knee and a 3 x 3 cm possible collection in the left groin. He was given Vancomycin at 15:29 and Zosyn at 13:50 atthe OSH. Review of Systems: Relevant review of systems [...] on file Tobacco Use Smoking status: Former Types: Cigarettes Passive exposure: Past Smokeless tobacco: Never Tobacco comments: Smoked 1-2 PPD for at least 30 years. Quit 2017 Vaping Use Vaping status: Never Used Substance and Sexual Activity Alcohol use: Not Currently Comment: holidays/special occasions Drug use: Yes Types: Marijuana Comment: daily marijuana, 1-2 blunts/day Sexual activity: Not on file Other Topics Concern Not on file Social History Narrative Number of children Marital Status: Social Drivers of Health Financial Resource Strain: Not on file Food Insecurity: No Food Insecurity (10/18/2024) Hunger Vital Sign Worried About Running Out of Food in the Last Year: Never true Ran Out of Food in the Last Year: Never true Transportation Needs: No Transportation Needs (10/18/2024) PRAPARE - Transportation Lack of Transportation (Medical): No Lack of Transportation (Non-Medical): No Physical Activity: Not on file Stress: Not on file Social Connections: Not on file Intimate Partner Violence: Not At Risk (10/18/2024) Humiliation, Afraid, Rape, and Kick questionnaire Fear of Current or Ex-Partner: No Emotionally Abused: No Physically Abused: No Sexually Abused: No Housing Stability: Unknown (10/18/2024) Housing Stability Vital Sign Unable to Pay for Housing in the Last Year: No Number of Times Moved in the Last Year: Not on file Homeless in the Last Year: No Immunizations: Immunization History Administered Date(s) Administered Influenza, injectable, MDCK, preservative free, quadrivalent 02/06/2021 Influenza, injectable, quadrivalent, preservative free 03/05/2019, 03/11/2020 Billy COVID-19 Vaccine (Blue Cap) 18+ 07/31/2020, 02/06/2021 Pneumococcal Polysaccharide PPV23 03/11/2020 Zoster, Recombinant 12/10/2020 I have updated and confirmed the past medical, surgical, family and social history. Home Medications: Prior to Admission medications Medication Sig Start Date End Date Taking? Authorizing Provider clopidogrel (Plavix) 75 MG tablet Take 1 tablet by mouth daily. 10/20/24 02/17/25 Dandy Baltazar MD docusate sodium (Colace) 100 MG capsule Take 1 capsule by mouth daily. Darby Camara MD insulin glargine (Lantus) 100 UNIT/ML injection Inject 28 Units under the skin nightly. Darby Camara MD insulin lispro protamine-insulin lispro (HumaLOG Mix 75-25) (75-25) 100 UNIT/ML injection vial Inject 12 Units under the skin 2 times a day with meals. Darby Camara MD insulin lispro protamine-insulin lispro (HumaLOG Mix 75-25) (75-25) 100 UNIT/ML injection vial Inject 15 Units under the skin 2 times a day with meals. 10/19/24 Dandy Baltazar MD lisinopril 10 MG tablet Take 1 tablet by mouth daily. 03/25/19 Darby Camara MD metoprolol tartrate (Lopressor) 100 MG tablet Take 1 tablet by mouth 2 times a day. 08/29/16 Darby Camara MD ondansetron ODT (Zofran-ODT) 4 MG disintegrating tablet Dissolve 1 tablet on the tongue every 6 hours as needed for nausea or vomiting. 10/19/24 Dandy Baltazar MD oxyCODONE (Roxicodone) 5 MG immediate release tablet Take 1 tablet by mouth every 4 hours as neededfor moderate pain or severe pain for up to 15 doses. 10/19/24 Dandy Baltazar MD pravastatin (Pravachol) 40 MG tablet Take 1 tablet by mouth nightly. 03/28/19 Darby Camara MD rivaroxaban (Xarelto) 20 MG tablet Take 1 tablet by mouth 1 time each day with dinner. Take with food. 10/19/24 11/18/24 Dandy Baltazar MD rOPINIRole (Requip) 1 MG tablet Take 2 tablets by mouth 2 times a day. 10/19/24 Dandy Baltazar MD tamsulosin (Flomax) 0.4 MG 24 hr capsule Take 1 capsule by mouth every evening. 09/30/22 Provider, MD Darby Anti-Thrombotic Medications: Is this patient taking warfarin, new oral anti-coagulant, or anti-platelet medication? Yes If Yes, What Medication: Plavix and Xarelto per chart but he is unsure Current Hospital Medications: Current Medications[5] Objective Objective: Visit Vitals BP (!) 159/45 Pulse 99 Temp 36.8 ??C (98.2 ??F) (Oral) Ht 1.702 m (5' 7 ) Wt 88.5 kg (195 lb 1.7 oz) SpO2 96% BMI 30.56 kg/m?? @ Physical Exam: Physical Exam Constitutional: General: He is not in acute distress. Appearance: He is not ill-appearing. Cardiovascular: Rate and Rhythm: Normal rate. Rhythm irregular. Pulses: Dorsalis pedis pulses are detected w/ Doppler on the right side and detected w/ Doppler on the leftside. Posterior tibial pulses are detected w/ Doppler on the right side and detected w/ Doppler on the left side. Pulmonary: Effort: Pulmonary effort is normal. No respiratory distress. Comments: RA Abdominal: General: There is no distension. Palpations: Abdomen is soft. Tenderness: There is no abdominal tenderness. Skin: General: Skin is warm. Comments: Left groin wound dehiscence with purulent and fibrinous contents to the base of the woundand some surrounding erythema. Left knee wound open with some purulent fluid. Neurological: General: No focal deficit present. Mental Status: He is alert. Psychiatric: Mood and Affect: Mood normal. Behavior: Behavior normal. Laboratory: CBC WBC 9.70 Hb 8.8 (L) Plt 542 (H) Hct 26.2 (L) ANC ?? INR ??, PTT ??, Anti-Xa ?? MCV 91 BMP Na 136 Cl 104 BUN 20 Glu 207 (H) K 4.5 Co2 22 Cr 0.92 Ca 9.0 iCa ?? Mg 2.2, Phos 3.2 Lactate ?? LFT AST ?? AlkPhos ?? T Prot ?? ALK ?? Bili ?? Alb ?? D.Bili ?? Imaging: Radiographic Interpretation: I have reviewed the imaging above and agree with the radiologist interpretation. Assessment/Plan Assessment & Plan: Bev Borja is a 64 y.o. male with PMHx notable for COPD, CAD s/p PCI (on Xarelto) s/p pacemaker c/b left SANDIP pseudoaneurysm s/p thrombin injection 09/21/24, chronic limb ischemia s/p left femoral endarterectomy with external iliac/common femoral artery stenting 10/17/24, T2DM, HLD, HTN, RLS who presented to [facility] with wound infection. He has had drainage and opening of his incision since going home although his back timeline is difficult to establish. On evaluation his left groin has dehisced with purulent and fibrinous fluid inside and left knee with opening and purulent fluid. He has round and hemodynamically normal here. Labs at OSH notable for WBC 11.3, Hgb 9.2, Plt 596, Na 131, Cl 103, K 5.2, Cl 25, bicarb 24, Cr 0.9, glucose 218. CTA was obtained showing resolution of left femoral artery sooner aneurysm, gas and fluid in the groin and knee and a 3 x 3 cm possible collection in the left groin. He was given Vancomycin at 15:29 and Zosyn at 13:50 at the OSH. He appears to have a wound infection of both of his surgical incisions. The groin wound appears to have completely dehisced. He requires admission and continuation of IV antibiotics to treat this. Given the extent of his left groin wound he may require washout and closure in the operating room. We will keep him nothing by mouth until he is evaluated further by the team. His evening medications were restarted however he will need his morning medications restarted once verified. Plan: - Admit to [facility] [place] 2 - NPO, mIVF - Vanc/Zosyn, Blood Cx - Repeat labs and obtain A1C - Possible intervention to wash out wounds pending further review - Restarted PM medications, will need to restart AM meds (AC) when verified Dispo: Admit to S[facility] Team 2 CODE STATUS: full code This Consult, Assessment, and Plan has been discussed with Dr. Nowak, Attending Physician Anthony Reyes MD [1] Past Medical History: Diagnosis Date Arthritis Old myocardial infarction History of myocardial infarction [2] No Known Allergies [3] Past Surgical History: Procedure Laterality Date ANKLE SURGERY Right CARDIAC PACEMAKER PLACEMENT CAROTID ENDARTERECTOMY N/A 2017 Endarterectomy Carotid Artery from [employer] CORONARY ANGIOPLASTY Left Coronary Angiography With Concomitant Left Heart Catheterization from [employer] CORONARY ARTERY BYPASS GRAFT N/A 2018 3V ELBOW SURGERY Right ENDARTERECTOMY Left 10/17/2024 common/SFA/Profunda thromboendarterectomy, EIA/OR ASSISTANT stent HERNIA REPAIR KNEE ARTHROSCOPY Left VASCULAR SURGERY Left 09/21/2024 OR ASSISTANT pseudoaneurym injection [4] Family History Problem Relation Name Age of Onset COPD Mother Diabetes Sister Anesthesia problems Neg Hx Malig Hyperthermia Neg Hx [5] Current Facility-Administered Medications Medication Dose Route Frequency Provider Last Rate Last Admin acetaminophen (Tylenol) tablet 1,000 mg 1,000 mg Oral q6h Anthony Gill MD 1,000 mg at 11/06/24 0138 glucose (Glutose) 40 % oral gel 15-30 grams of glucose 15-30 grams of glucose Sublingual q15 min PRN Anthony Reyes MD Or dextrose 10 % (D10W) bolus 125 mL 125 mL Intravenous q15 min PRN Anthony Reyes MD Or dextrose 10 % (D10W) bolus 250 mL 250 mL Intravenous q15 min PRN Anthony Reyes MD Or glucagon (human recombinant) injection 1 mg 1 mg Intramuscular q15 min PRN Anthony Reyes MD insulin regular (HumuLIN R,NovoLIN R) 100 units/mL injection - Correction - Standard Dose 0-5 UnitsSubcutaneous q6h [facility] Anthony Reyes MD 2 Units at 11/06/24 0140 lactated Ringer's infusion 84 mL/hr Intravenous Continuous Anthony Reyes MD 84 mL/hr at 11/06/24 0140 84 mL/hr at 11/06/24 0140 methocarbamol (Robaxin) tablet 500 mg 500 mg Oral 4x daily Anthony Reyes MD 500 mg at 11/06/24 0138 metoprolol tartrate (Lopressor) tablet 100 mg 100 mg Oral BID Anthony Reyes MD 100 mg at 11/06/24 0138 ondansetron ODT (Zofran-ODT) disintegrating tablet 4 mg 4 mg Oral q6h PRN Anthony Reyes MD Or ondansetron (Zofran) injection 4 mg 4 mg Intravenous q6h PRN Anthony Reyes MD Or ondansetron (Zofran) 4 MG/5ML solution 4 mg 4 mg Oral q6h PRN Anthony Reyes MD oxyCODONE (Roxicodone) immediate release tablet 5 mg 5 mg Oral q6h PRN Anthony Reyes MD 5 mg at 11/06/24 0138 Or oxyCODONE (Roxicodone) immediate release tablet 10 mg 10 mg Oral q6h PRN Anthony Reyes MD piperacillin-tazobactam (Zosyn) 4.5 g in sodium chloride 0.9% 100 mL IVPB (vial adapter required) 4.5 g Intravenous q6h Anthony Reyes MD Stopped at 11/06/24 0329 pravastatin (Pravachol) tablet 40 mg 40 mg Oral Nightly Anthony Reyes MD 40 mg at 11/06/24 0138 rOPINIRole (Requip) tablet 2 mg 2 mg Oral BID Anthony Reyes MD 2 mg at 11/06/24 0138 sodium chloride 0.9 % flush 10 mL 10 mL Intravenous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 EDT [facility] Comment:Accuracy of [...] to the main labortory for testing. Comment 11/13/2024 12:00 PM EDT [facility] Research Instrumentation Technician ID Estefani Sheth 11/13/2024 12:00 PM EDT [facility] LAB Device ID [id number] 11/13/2024 12:00 PM EDT [facility] Specimen Type POC Capillary 11/13/2024 12:00 PM EDT [facility] Blood Capillary blood specimen / Unknown 11/13/2024 11:58 AM EDT 11/13/2024 12:00 PM EDT Nathaly Nowak MD LAB POINT OF CARE TE ST DOCKED DEVICE UNSOLICITED RESULTS Final Result Performing Organization Address [facility] Co de Phone Number [facility] [address] [place] [address] * (ABNORMAL) POCT glucose meter (11/13/2024 8:23 AM EDT) POCT Glucose 195(H) 74 - 99 mg/dL 11/13/2024 8:24 AM EDT [facility] Comment:Accuracy of a glucos e result obtained from a capillary whole blood specimen relies upon adequate, non-compromised capillary blood flow. If the capillary glucose result is not consistent with the patient's clinical signs and symptoms, glucose testing should be repeated with either an arterial or venous sample on the glucometer or sent to the main labortory for testing. Comment 11/13/2024 8:24 AM EDT [facility] Research Instrumentation Technician ID Estefani Sheth 11/13/2024 8:24 AM EDT [facility] Device ID [id number] 11/13/2024 8:24 AM EDT [facility] Specimen Type POC Capillary 11/13/2024 8:24 AM EDT [facility] Blood Capillary blood specimen / Unknown 11/13/2024 8:23 AM EDT 11/13/2024 8:24 AM EDT Result [facility] Nathaly Nowak MD LAB POINT OF CARE TE ST DOCKED DEVICE UNSOLICITED RESULTS Final Result Performing Organization Address City/[facility] Co de Phone Number [facility] [address] [place] [address] * (ABNORMAL) Phosphorus, Plasma (11/13/2024 6:37 AM EDT) Phosphorus, Plasma 1.7(L) 2.5 - 4.5 mg/dL 11/13/2024 7:16 AM EDT [facility] Blood Venous blood specimen / Unknown Venipuncture / Unknown 11/13/2024 6:37 AM EDT 11/13/2024 6:44 AM EDT Result [facility] Nathaly Nowak MD LAB BLOOD ORDERABLES Final Resu lt [facility] [address] [place] [address] * Magnesium, Plasma (11/13/2024 6:37 AM EDT) Pathologist [facility] Magnesium, Plasma 2.0 1.9 - 2.4 mg/dL 11/13/2024 7:16 AM EDT [facility] Blood Venous blood specimen / Unknown Venipuncture / Unknown 11/13/2024 6:37 AM EDT 11/13/2024 6:44 AM EDT us Nathaly Nowak MD LAB BLOOD ORDERABLES Final Resu lt Performing Organization Address City/[facility]/ZIP Co de Phone Number [facility] [address] [place] [address] * (ABNORMAL) CBC W/O Differential (11/13/2024 6:37 AM EDT) Pathologist [facility] WBC Count 11.72(H) 3.70 - 10.30 10*3/uL LAB HEMATOLOGY METHOD 11/13/2024 6:51 AM EDT [facility] RBC Count 2.88(L) 4.60 - 6.10 10*6/uL LAB HEMATOLOGY METHOD 11/13/2024 6:51 AM EDT [facility] HGB 8.5(L) 13.7 - 17.5 g/dL LAB HEMATOLOGY METHOD 11/13/2024 6:51 AM EDT [facility] HCT 26.4(L) 40.0 - 51.0 % LAB HEMATOLOGY METHOD 11/13/2024 6:51 AM EDT [facility] Platelet Count 398(H) 155 - 369 10*3/uL LAB HEMATOLOGY METHOD 11/13/2024 6:51 AM EDT [facility] MCV 92 79 - 98 fL LAB HEMATOLOGY METHOD 11/13/2024 6:51 AM EDT [facility] MCH 29.5 26.0 - 32.0 pg LAB HEMATOLOGY METHOD 11/13/2024 6:51 AM EDT [facility] MCHC 32.2 30.7 - 35.5 g/dL LAB HEMATOLOGY METHOD 11/13/2024 6:51 AM EDT [facility] RDW 13.6 11.5 - 14.5 % LAB HEMATOLOGY METHOD 11/13/2024 6:51 AM EDT [facility] MPV 8.9 8.8 - 12.5 fL LAB HEMATOLOGY METHOD 11/13/2024 6:51 AM EDT [facility] nRBC 0.0 <=0.0 per 100 WBCs LAB HEMATOLOGY METHOD 11/13/2024 6:51 AM EDT [facility] Blood Venous blood specimen / Unknown Venipuncture / Unknown 11/13/2024 6:37 AM EDT 11/13/2024 6:44 AM EDT us Nathaly Nowak MD LAB BLOOD ORDERABLES Final Resu lt [facility] [address] [place] [address] * (ABNORMAL) Basic Metabolic Panel, Plasma (11/13/2024 6:37 AM EDT) Glucose, Plasma 200(H) 74 - 99 mg/dL 11/13/2024 7:16 AM EDT [facility] BUN, Plasma 10 8 - 23 mg/dL 11/13/2024 7:16 AM EDT [facility] Creatinine, Plasma 0.68(L) 0.70 - 1.20 mg/dL 11/13/2024 7:16 AM EDT [facility] BUN/Creatinine Ratio 15 11/13/2024 7:16 AM EDT [facility] Sodium, Plasma 135(L) 136 - 145 mmol/L 11/13/2024 7:16 AM EDT [facility] Potassium, Plasma 3.9 3.6 - 4.9 mmol/L 11/13/2024 7:16 AM EDT [facility] Chloride, Plasma 107 97 - 107 mmol/L 11/13/2024 7:16 AM EDT [facility] CO2, Plasma 21(L) 22 - 29 mmol/L 11/13/2024 7:16 AM EDT [facility] Anion Gap 7 6 - 16 mmol/L 11/13/2024 7:16 AM EDT [facility] Total Calcium, Plasma 8.1(L) 8.9 - 10.2 mg/dL 11/13/2024 7:16 AM EDT [facility] eGFRcr 103.2 mL/min/1.7 3m*2 11/13/2024 7:16 AM EDT [facility] Comment:Reported eGFRcr in m L/min/1.73m2 is based the CKD-EPI 2020 equation that does not use a race coefficient. Blood Venous blood specimen / Unknown Venipuncture / Unknown 11/13/2024 6:37 AM EDT 11/13/2024 6:44 AM EDT us Nathaly Nowak MD LAB BLOOD ORDERABLES Final Resu lt Performing Organization Address City/[facility]/ZIP Co de Phone Number [facility] [address] [place] [address] * (ABNORMAL) POCT glucose meter (11/12/2024 8:27 PM EDT) [facility] POCT Glucose 175(H) 74 - 99 mg/dL 11/12/2024 8:29 PM EDT [facility] Comment:Accuracy of a glucos e result obtained from a capillary whole blood specimen relies upon adequate, non-compromised capillary blood flow. If the capillary glucose result is not consistent with the patient's clinical signs and symptoms, glucose testing should be repeated with either an arterial or venous sample on the glucometer or sent to the main labortory for testing. Comment 11/12/2024 8:29 PM EDT [facility] Research Instrumentation Technician ID Nelda Gerber 11/13/19 8:29 PM EDT [facility] LAB Device ID [id number] 11/12/2024 8:29 PM EDT [facility] Specimen Type POC Capillary 11/12/2024 8:29 PM EDT [facility] Blood Capillary blood specimen / Unknown 11/12/2024 8:27 PM EDT 11/12/2024 8:29 PM EDT us Nathaly Nowak MD LAB POINT OF CARE TE ST DOCKED DEVICE UNSOLICITED RESULTS Final Result [facility] [address] [place] [address] * (ABNORMAL) POCT glucose meter (11/12/2024 5:08 PM EDT) [facility] POCT Glucose 157(H) 74 - 99 mg/dL 11/12/2024 5:10 PM EDT [facility] Comment:Accuracy of [...] to the main labortory for testing. Comment 11/12/2024 5:10 PM EDT [facility] Research Instrumentation Technician ID Wade Feliciano 5:10 PM EDT [facility] Device ID [id number] 11/12/2024 5:10 PM EDT [facility] Specimen Type POC Capillary 11/12/2024 5:10 PM EDT [facility] Blood Capillary blood specimen / Unknown 11/12/2024 5:08 PM EDT 11/12/2024 5:10 PM EDT Nathaly Nowak MD LAB POINT OF CARE TE ST DOCKED DEVICE UNSOLICITED RESULTS Final Result [facility] [address] [place] [address] * (ABNORMAL) POCT glucose meter (11/12/2024 12:36 PM EDT) [facility] POCT Glucose 224(H) 74 - 99 mg/dL 11/12/2024 12:38 PM EDT [facility] Comment:Accuracy of [...] to the main labortory for testing. Comment 11/12/2024 12:38 PM EDT [facility] Research Instrumentation Technician ID Wade Feliciano 12:38 PM EDT [facility] Device ID [id number] 11/12/2024 12:38 PM EDT [facility] Specimen Type POC Capillary 11/12/2024 12:38 PM EDT [facility] Blood Capillary blood specimen / Unknown 11/12/2024 12:36 PM EDT 11/12/2024 12:38 PM EDT Nathaly Nowak MD LAB POINT OF CARE TE ST DOCKED DEVICE UNSOLICITED RESULTS Final Result Performing Organization Address City/[facility]/ZIP Co de Phone Number [facility] [address] [place] [address] * Clostridiodes (Clostridium) difficile PCR (11/12/2024 9:50 AM EDT) C difficile PCR toxin B gene DNA Result Not Detected Not Detected 11/12/2024 11:54 AM EDT [facility] Stool Rectum structure / Unknown Non-blood Collection / Unknown 11/12/2024 9:50 AM EDT 11/12/2024 10:04 AM EDT Narrative [facility] - 11/12/2024 11:54 AM EDT This test is FDA approved for use with liquid stool specimens. This test is used for clinical purposes. It should not be regarded as investigational or for research. This laboratory is certified under the Clinical Laboratory Improvement Amendments of 1988 (CLIA-88) as qualified to perform high complexity clinical laboratory testing. Nathaly Nowak MD LAB MICROBIOLOGY - GENERAL ATIYA FRITZ Final Result Performing Organization Address City/[facility]/ZIP Co de Phone Number [facility] [address] [place] [address] * Comprehensive GI Panel by PCR (11/12/2024 9:50 AM EDT) Campylobacter PCR Result Not Detected Not Detected 11/12/2024 2:47 PM EDT [facility] Plesiomonas shigelloides PCR Result Not Detected Not Detected 11/12/2024 2:47 PM EDT [facility] Salmonella PCR Result Not Detected Not Detected 11/12/2024 2:47 PM EDT [facility] Vibrio species PCR Result Not Detected Not Detected 11/12/2024 2:47 PM EDT [facility] Vibrio cholerae PCR Result Not Detected Not Detected 11/12/2024 2:47 PM EDT [facility] Yersinia enterocolitica PCR Result Not Detected Not Detected 11/12/2024 2:47 PM EDT [facility] Enteroaggregative E. coli (EAEC) PCR Result Not Detected Not Detected 11/12/2024 2:47 PM EDT [facility] Enteropathogenic E. coli (EPEC) PCR Result Not Detected Not Detected 11/12/2024 2:47 PM EDT [facility] Enterotoxigenic E. coli (ETEC) lt/st PCR Result Not Detected Not Detected 11/12/2024 2:47 PM EDT [facility] Shiga-like Toxin-Producing E.coli (STEC) stx1/stx2 PCR Resu Not Detected Not Detected 11/12/2024 2:47 PM EDT [facility] E coli 0157 PCR Result Not Detected Not Detected 11/12/2024 2:47 PM EDT [facility] Shigella/Enteroinvas tam E. coli (EIEC) PCR Result Not Detected Not Detected 11/12/2024 2:47 PM EDT [facility] Cryptosporidium PCR Result Not Detected Not Detected 11/12/2024 2:47 PM EDT [facility] Cyclospora cayetanensis PCR Result Not Detected Not Detected 11/12/2024 2:47 PM EDT [facility] Entamoeba histolytica PCR Result Not Detected Not Detected 11/12/2024 2:47 PM EDT [facility] Giardia duodenalis (aka Giardia lamblia) PCR Result Not Detected Not Detected 11/12/2024 2:47 PM EDT [facility] Adenovirus F 40/41 PCR Result Not Detected Not Detected 11/12/2024 2:47 PM EDT [facility] Astrovirus PCR Result Not Detected Not Detected 11/12/2024 2:47 PM EDT [facility] Norovirus GI/GII PCR Result Not Detected Not Detected 11/12/2024 2:47 PM EDT [facility] Rotavirus A PCR Result Not Detected Not Detected 11/12/2024 2:47 PM EDT [facility] Sapovirus PCR Result Not Detected Not Detected 11/12/2024 2:47 PM EDT [facility] Stool Rectum structure / Unknown Non-blood Collection / Unknown 11/12/2024 9:50 AM EDT 11/12/2024 10:04 AM EDT Narrative [facility] - 11/12/2024 2:47 PM EDT This specimen was tested for the following analytes: Campylobacter species, Plesiomonas shigelloides, Salmonella species, Vibrio species, Vibrio cholerae, Yersinia enterolitica, Enteroaggregative E. coli (EAEC), Enteropathogenic E. Coli (EPEC), Enterotoxigenic E. coli (ETEC), Shiga-like toxin-producing E. coli (STEC), Shigella/Enteroinvasive E. coli (EIEC), Cryptosporidium, Cyclospora cayetanensis, Entamoeba histolytica, Giardia lamblia, Adenovirus f40/41, Astrovirus, Norovirus GI/GII, Rotavirus A, and Sapovirus. Note: Clostridium difficile toxin a/b will no longer be resulted using this platform. Please order the Clostridium difficile by PCR assay if clinically indicated. Nathaly Nowak MD LAB MICROBIOLOGY [facility] Final Result [facility] [address] [place] [address] * C-reactive protein (11/12/2024 9:48 AM EDT) CRP, Plasma <3.0 <=8.0 mg/L 11/12/2024 10:28 AM EDT [facility] Blood Venous blood specimen / Unknown Venipuncture / Unknown 11/12/2024 9:48 AM EDT 11/12/2024 9:59 AM EDT Narrative [facility] - 11/12/2024 10:28 AM EDT This CRP test is appropriate for assessment of infection, systemic inflammation and/or tissue injury. To assess cardiovascular disease risk order high sensitivity CRP (CRPH). us Nathaly Nowak MD LAB BLOOD ORDERABLES Final Resu lt Performing Organization Address City/[facility]/ZIP Co de Phone Number [facility] [address] [place] [address] * (ABNORMAL) POCT glucose meter (11/12/2024 8:20 AM EDT) [facility] POCT Glucose 138(H) 74 - 99 mg/dL 11/12/2024 8:21 AM EDT [facility] Comment:Accuracy of a glucos e result obtained from a capillary whole blood specimen relies upon adequate, non-compromised capillary blood flow. If the capillary glucose result is not consistent with the patient's clinical signs and symptoms, glucose testing should be repeated with either an arterial or venous sample on the glucometer or sent to the main labortory for testing. Comment 11/12/2024 8:21 AM EDT [facility] Research Instrumentation Technician ID Wade Feliciano 8:21 AM EDT [facility] Device ID [id number] 11/12/2024 8:21 AM EDT [facility] Specimen Type POC Capillary 11/12/2024 8:21 AM EDT [facility] Blood Capillary blood specimen / Unknown 11/12/2024 8:20 AM EDT 11/12/2024 8:21 AM EDT Nathaly Nowak MD LAB POINT OF CARE TE ST DOCKED DEVICE UNSOLICITED RESULTS Final Result Performing Organization Address [facility] Co de Phone Number [facility] [address] [place] [address] * (ABNORMAL) POCT glucose meter (11/11/2024 8:18 PM EDT) [facility] POCT Glucose 248(H) 74 - 99 mg/dL 11/11/2024 8:20 PM EDT [facility] Comment:Accuracy of [...] to the main labortory for testing. Comment 11/11/2024 8:20 PM EDT [facility] Research Instrumentation Technician ID Nelda Gerber 11/12/19 8:20 PM EDT [facility] Device ID [id number] 11/11/2024 8:20 PM EDT [facility] Specimen Type POC Capillary 11/11/2024 8:20 PM EDT [facility] Blood Capillary blood specimen / Unknown 11/11/2024 8:18 PM EDT 11/11/2024 8:20 PM EDT Nathaly Nowak MD LAB POINT OF CARE TE ST DOCKED DEVICE UNSOLICITED RESULTS Final Result Performing Organization Address City/[facility]/ZIP Co de Phone Number [facility] [address] [place] [address] * (ABNORMAL) POCT glucose meter (11/11/2024 5:59 PM EDT) POCT Glucose 147(H) 74 - 99 mg/dL 11/11/2024 6:01 PM EDT [facility] Comment:Accuracy of [...] to the main labortory for testing. Comment 11/11/2024 6:01 PM EDT [facility] Research Instrumentation Technician ID Wade Feliciano 6:01 PM EDT [facility] Device ID [id number] 11/11/2024 6:01 PM EDT [facility] Specimen Type POC Capillary 11/11/2024 6:01 PM EDT [facility] Blood Capillary blood specimen / Unknown 11/11/2024 5:59 PM EDT 11/11/2024 6:01 PM EDT Nathaly Nowak MD LAB POINT OF CARE TE ST DOCKED DEVICE UNSOLICITED RESULTS Final Result Performing Organization Address City/[facility]/ZIP Co de Phone Number [facility] [address] [place] [address] * POCT glucose meter (11/11/2024 5:20 PM EDT) POCT Glucose 84 74 - 99 mg/dL 11/11/2024 5:22 PM EDT [facility] Comment:Accuracy of [...] to the main labortory for testing. Comment 11/11/2024 5:22 PM EDT [facility] Research Instrumentation Technician ID Wade Feliciano 5:22 PM EDT [facility] LAB Device ID [id number] 11/11/2024 5:22 PM EDT [facility] Specimen Type POC Capillary 11/11/2024 5:22 PM EDT [facility] Blood Capillary blood specimen / Unknown 11/11/2024 5:20 PM EDT 11/11/2024 5:22 PM EDT Nathaly Nowak MD LAB POINT OF CARE TE ST DOCKED DEVICE UNSOLICITED RESULTS Final Result Performing Organization Address City/State/[facility] Co de Phone Number [facility] [address] [place] [address] * [place] NEGATIVE PRESSURE WOUND THERAPY DME >50 SQ CM (11/11/2024 2:00 PM EDT) Narrative Neil Isaac MD - 11/11/2024 2:00 PM EDT Neil Isaac MD 11/11/2024 6:42 PM Wound Vac Placement 2 Wounds Associated Performed by: Reid Daniels MD Authorized by: Nathaly Nowak MD Associated wounds: Wound 10/17/24 Surgical Open Surgical Incision Groin Left Wound 10/17/24 Surgical Open Surgical Incision Left;Lower Consent: Consent obtained: Verbal DME Vac: Yes Procedure details: Foam Removed (Pieces): 0 Foam Placed (Pieces): 3 Length (cm): 10 Width (cm): 7 Depth (cm): 6.5 Calc Area (square cm): 70 Foam Applied: Black Polyurethane Foam and White Polyvinyl Foam Therapy: Continuous Pressure (mmHg): 125 Patient tolerance of procedure: Tolerated well, no immediate complications Nathaly Nowak MD IN CLINIC/BEDSIDE ORDERABLES Fi nal Result * (ABNORMAL) POCT glucose meter (11/11/2024 12:08 PM EDT) Pathologist [facility] POCT Glucose 226(H) 74 - 99 mg/dL 11/11/2024 12:10 PM EDT [facility] Comment:Accuracy of [...] to the main labortory for testing. Comment 11/11/2024 12:10 PM EDT [facility] Research Instrumentation Technician ID Wade Feliciano 12:10 PM EDT [facility] Device ID [id number] 11/11/2024 12:10 PM EDT [facility] Specimen Type POC Capillary 11/11/2024 12:10 PM EDT [facility] Blood Capillary blood specimen / Unknown 11/11/2024 12:08 PM EDT 11/11/2024 12:10 PM EDT us Nathaly Nowak MD LAB POINT OF CARE TE ST DOCKED DEVICE UNSOLICITED RESULTS Final Result Performing Organization Address City/State/[facility] Co de Phone Number [facility] [address] [place] [address] * (ABNORMAL) POCT glucose meter (11/11/2024 9:08 AM EDT) Pathologist [facility] POCT Glucose 162(H) 74 - 99 mg/dL 11/11/2024 9:09 AM EDT [facility] Comment:Accuracy of [...] to the main labortory for testing. Comment 11/11/2024 9:09 AM EDT [facility] Research Instrumentation Technician ID Wade Feliciano 9:09 AM EDT [employer] [facility] Device ID [id number] 11/11/2024 9:09 AM EDT [facility]ALTHCARE LAB Specimen Type POC Capillary 11/11/2024 9:09 AM EDT [facility] Blood Capillary blood specimen / Unknown 11/11/2024 9:08 AM EDT 11/11/2024 9:09 AM EDT Nathaly Nowak MD LAB POINT OF CARE TE ST DOCKED DEVICE UNSOLICITED RESULTS Final Result Performing Organization Address City/[facility]/ZIP Co de Phone Number [facility] [address] [place] [address] * POCT glucose meter (11/11/2024 8:27 AM EDT) POCT Glucose 87 74 - 99 mg/dL 11/11/2024 8:28 AM EDT [facility] Comment:Accuracy of a glucos e result obtained from a capillary whole blood specimen relies upon adequate, non-compromised capillary blood flow. If the capillary glucose result is not consistent with the patient's clinical signs and symptoms, glucose testing should be repeated with either an arterial or venous sample on the glucometer or sent to the main labortory for testing. Comment 11/11/2024 8:28 AM EDT [facility] Research Instrumentation Technician ID Wade Feliciano 8:28 AM EDT [facility] Device ID [id number] 11/11/2024 8:28 AM EDT [facility] Specimen Type POC Capillary 11/11/2024 8:28 AM EDT [facility] Blood Capillary blood specimen / Unknown 11/11/2024 8:27 AM EDT 11/11/2024 8:28 AM EDT Nathaly Nowak MD LAB POINT OF CARE TE ST DOCKED DEVICE UNSOLICITED RESULTS Final Result Performing Organization Address City/[facility]/ZIP Co de Phone Number [facility] [address] [place] [address] * (ABNORMAL) Basic Metabolic Panel, Plasma (11/11/2024 1:12 AM EDT) Glucose, Plasma 122(H) 74 - 99 mg/dL 11/11/2024 1:12 AM EDT [facility] BUN, Plasma 10 8 - 23 mg/dL 11/11/2024 1:12 AM EDT [facility] Creatinine, Plasma 0.82 0.70 - 1.20 mg/dL 11/11/2024 1:12 AM EDT [facility] BUN/Creatinine Ratio 12 11/11/2024 1:12 AM EDT [facility] Sodium, Plasma 137 136 - 145 mmol/L 11/11/2024 1:12 AM EDT [facility] Potassium, Plasma 3.9 3.6 - 4.9 mmol/L 11/11/2024 1:12 AM EDT [facility] Chloride, Plasma 110(H) 97 - 107 mmol/L 11/11/2024 1:12 AM EDT [facility] CO2, Plasma 20(L) 22 - 29 mmol/L 11/11/2024 1:12 AM EDT [facility] Anion Gap 7 6 - 16 mmol/L 11/11/2024 1:12 AM EDT [facility] Total Calcium, Plasma 7.6(L) 8.9 - 10.2 mg/dL 11/11/2024 1:12 AM EDT [facility] eGFRcr 97.5 mL/min/1.7 3m*2 11/11/2024 1:12 AM EDT [facility] Comment:Reported eGFRcr in m L/min/1.73m2 is based the CKD-EPI 2020 equation that does not use a race coefficient. Blood Venous blood specimen / Unknown 11/11/2024 12:42 AM EDT us Nathaly Nowak MD LAB BLOOD ORDERABLES Final Resu lt [facility] [address] [place] [address] * (ABNORMAL) CBC W/O Differential (11/11/2024 12:56 AM EDT) WBC Count 11.83(H) 3.70 - 10.30 10*3/uL LAB HEMATOLOGY METHOD 11/11/2024 12:56 AM EDT [facility] RBC Count 2.97(L) 4.60 - 6.10 10*6/uL LAB HEMATOLOGY METHOD 11/11/2024 12:56 AM EDT [facility] HGB 8.9(L) 13.7 - 17.5 g/dL LAB HEMATOLOGY METHOD 11/11/2024 12:56 AM EDT [facility] HCT 27.2(L) 40.0 - 51.0 % LAB HEMATOLOGY METHOD 11/11/2024 12:56 AM EDT [facility] Platelet Count 444(H) 155 - 369 10*3/uL LAB HEMATOLOGY METHOD 11/11/2024 12:56 AM EDT [facility] MCV 92 79 - 98 fL LAB HEMATOLOGY METHOD 11/11/2024 12:56 AM EDT [facility] MCH 30.0 26.0 - 32.0 pg LAB HEMATOLOGY METHOD 11/11/2024 12:56 AM EDT [facility] MCHC 32.7 30.7 - 35.5 g/dL LAB HEMATOLOGY METHOD 11/11/2024 12:56 AM EDT [facility] RDW 13.3 11.5 - 14.5 % LAB HEMATOLOGY METHOD 11/11/2024 12:56 AM EDT [facility] MPV 9.0 8.8 - 12.5 fL LAB HEMATOLOGY METHOD 11/11/2024 12:56 AM EDT [facility] nRBC 0.0 <=0.0 per 100 WBCs LAB HEMATOLOGY METHOD 11/11/2024 12:56 AM EDT [facility] Blood Venous blood specimen / Unknown 11/11/2024 12:42 AM EDT us Nathaly Nowak MD LAB BLOOD ORDERABLES Final Resu lt [facility] [address] [place] [address] * (ABNORMAL) POCT glucose meter (11/10/2024 8:25 PM EDT) Pathologist [facility] POCT Glucose 144(H) 74 - 99 mg/dL 11/10/2024 8:28 PM EDT [facility] Comment:Accuracy of a glucos e result obtained from a capillary whole blood specimen relies upon adequate, non-compromised capillary blood flow. If the capillary glucose result is not consistent with the patient's clinical signs and symptoms, glucose testing should be repeated with either an arterial or venous sample on the glucometer or sent to the main labortory for testing. Comment 11/10/2024 8:28 PM EDT [facility] Research Instrumentation Technician ID Nelda Gerber 11/11/19 8:28 PM EDT [facility] Device ID [id number] 11/10/2024 8:28 PM EDT [facility] Specimen Type POC Capillary 11/10/2024 8:28 PM EDT [facility] Blood Capillary blood specimen / Unknown 11/10/2024 8:25 PM EDT 11/10/2024 8:28 PM EDT Nathaly Nowak MD LAB POINT OF CARE TE ST DOCKED DEVICE UNSOLICITED RESULTS Final Result Performing Organization Address City/[facility] Co de Phone Number [facility] [address] [place] [address] * (ABNORMAL) POCT glucose meter (11/10/2024 4:45 PM EDT) [facility] POCT Glucose 155(H) 74 - 99 mg/dL 11/10/2024 4:47 PM EDT [facility] Comment:Accuracy of [...] to the main labortory for testing. Comment 11/10/2024 4:47 PM EDT [facility] Research Instrumentation Technician ID Esperanza Parks 11/10/2024 4:47 PM EDT [facility] Device ID [id number] 11/10/2024 4:47 PM EDT [facility] Specimen Type POC Capillary 11/10/2024 4:47 PM EDT [facility] Blood Capillary blood specimen / Unknown 11/10/2024 4:45 PM EDT 11/10/2024 4:47 PM EDT us Nathaly Nowak MD LAB POINT OF CARE TE ST DOCKED DEVICE UNSOLICITED RESULTS Final Result [facility] [address] [place] [address] * (ABNORMAL) POCT glucose meter (11/10/2024 12:13 PM EDT) Pathologist [facility] POCT Glucose 131(H) 74 - 99 mg/dL 11/10/2024 12:14 PM EDT [facility] Comment:Accuracy of a glucos e result obtained from a capillary whole blood specimen relies upon adequate, non-compromised capillary blood flow. If the capillary glucose result is not consistent with the patient's clinical signs and symptoms, glucose testing should be repeated with either an arterial or venous sample on the glucometer or sent to the main labortory for testing. Comment 11/10/2024 12:14 PM EDT [facility] Research Instrumentation Technician ID Esperanza Parks 11/10/2024 12:14 PM EDT [facility] Device ID [id number] 11/10/2024 12:14 PM EDT [facility] Specimen Type POC Capillary 11/10/2024 12:14 PM EDT [facility] Blood Capillary blood specimen / Unknown 11/10/2024 12:13 PM EDT 11/10/2024 12:14 PM EDT Nathaly Nowak MD LAB POINT OF CARE TE ST DOCKED DEVICE UNSOLICITED RESULTS Final Result Performing Organization Address City/[facility]/ZIP Co de Phone Number [facility] [address] [place] [address] * Vancomycin, Peak, Plasma Please draw ~2 hours after 0800 dose of vancomycin finishes infusing. Consider obtaining level via peripheral stick. If peripheral stick is not feasible, please ensure that line is flushed well prior to drawing level. Than... (11/10/2024 10:56 AM EDT) Pathologist [facility] Vancomycin, Peak, Plasma 23.8 20.0 - 40.0 ug/mL 11/10/2024 11:25 AM EDT [facility] Blood Venous blood specimen / Unknown Venipuncture / Unknown 11/10/2024 10:56 AM EDT 11/10/2024 11:00 AM EDT Narrative [facility] - 11/10/2024 11:25 AM EDT Therapeutic Peak level: 20-40ug/mL Supra-therapeutic Peak level: >40 ug/mL us Abigail Seay MD LAB BLOOD ORDERABLES Final Res ult Performing Organization Address [facility] Co de Phone Number [facility] [address] [place] [address] * (ABNORMAL) POCT glucose meter (11/10/2024 8:03 AM EDT) POCT Glucose 174(H) 74 - 99 mg/dL 11/10/2024 8:04 AM EDT [facility] Comment:Accuracy of [...] to the main labortory for testing. Comment 11/10/2024 8:04 AM EDT [facility] Research Instrumentation Technician ID Esperanza Parks 11/10/2024 8:04 AM EDT [facility] Device ID [id number] 11/10/2024 8:04 AM EDT [facility] Specimen Type POC Capillary 11/10/2024 8:04 AM EDT [facility] Blood Capillary blood specimen / Unknown 11/10/2024 8:03 AM EDT 11/10/2024 8:04 AM EDT us Nathaly Nowak MD LAB POINT OF CARE TE ST DOCKED DEVICE UNSOLICITED RESULTS Final Result Performing Organization Address [facility] Co de Phone Number [facility] [address] [place] [address] * Vancomycin, Trough, Plasma Please draw ~30 minutes prior to dose due at 0800 on 11/10. Please do NOThold dose awaiting level to return. Consider obtaining level via peripheral stick. If peripheral stick is not feasible, please ensure that line is... (11/10/2024 7:27 AM EDT) Vancomycin, Trough, Plasma 16.2 10.0 - 20.0 ug/mL 11/10/2024 8:24 AM EDT [facility] Blood Venous blood specimen / Unknown Venipuncture / Unknown 11/10/2024 7:27 AM EDT 11/10/2024 7:51 AM EDT [facility] - 11/10/2024 8:24 AM EDT Therapeutic Trough level: 10-20ug/mL Supra-therapeutic Trough level: >20 ug/mL us Abigail Seay MD LAB BLOOD ORDERABLES Final Res ult [facility] [address] [place] [address] * (ABNORMAL) CBC and Differential (11/10/2024 12:31 AM EDT) WBC Count 10.80(H) 3.70 - 10.30 10*3/uL LAB HEMATOLOGY METHOD 11/10/2024 12:53 AM EDT [facility] RBC Count 3.06(L) 4.60 - 6.10 10*6/uL LAB HEMATOLOGY METHOD 11/10/2024 12:53 AM EDT [facility] HGB 9.1(L) 13.7 - 17.5 g/dL LAB HEMATOLOGY METHOD 11/10/2024 12:53 AM EDT [facility] HCT 28.0(L) 40.0 - 51.0 % LAB HEMATOLOGY METHOD 11/10/2024 12:53 AM EDT [facility] Platelet Count 501(H) 155 - 369 10*3/uL LAB HEMATOLOGY METHOD 11/10/2024 12:53 AM EDT [facility] MCV 92 79 - 98 fL LAB HEMATOLOGY METHOD 11/10/2024 12:53 AM EDT [facility] MCH 29.7 26.0 - 32.0 pg LAB HEMATOLOGY METHOD 11/10/2024 12:53 AM EDT [facility] MCHC 32.5 30.7 - 35.5 g/dL LAB HEMATOLOGY METHOD 11/10/2024 12:53 AM EDT [facility] RDW 13.2 11.5 - 14.5 % LAB HEMATOLOGY METHOD 11/10/2024 12:53 AM EDT [facility] MPV 8.8 8.8 - 12.5 fL LAB HEMATOLOGY METHOD 11/10/2024 12:53 AM EDT [facility] nRBC 0.0 <=0.0 per 100 WBCs LAB HEMATOLOGY METHOD 11/10/2024 12:53 AM EDT [facility] Differential Type Automated LAB HEMATOLOGY METHOD 11/10/2024 12:53 AM EDT [facility] Neutrophils % 77 % LAB HEMATOLOGY METHOD 11/10/2024 12:53 AM EDT [facility] Lymphocytes % 13 % LAB HEMATOLOGY METHOD 11/10/2024 12:53 AM EDT [facility] Monocytes % 8 % LAB HEMATOLOGY METHOD 11/10/2024 12:53 AM EDT [facility] Eosinophils % 1 % LAB HEMATOLOGY METHOD 11/10/2024 12:53 AM EDT [facility] Basophils % 0 % LAB HEMATOLOGY METHOD 11/10/2024 12:53 AM EDT [facility] Immature Granulocytes % 1 % LAB HEMATOLOGY METHOD 11/10/2024 12:53 AM EDT [facility] Neutrophils Absolute 8.32(H) 1.60 - 6.10 10*3/uL LAB HEMATOLOGY METHOD 11/10/2024 12:53 AM EDT [facility] Lymphocytes Absolute 1.40 1.20 - 3.90 10*3/uL LAB HEMATOLOGY METHOD 11/10/2024 12:53 AM EDT [facility] Monocytes Absolute 0.89 0.30 - 0.90 10*3/uL LAB HEMATOLOGY METHOD 11/10/2024 12:53 AM EDT [facility] Eosinophils Absolute 0.09 0.00 - 0.50 10*3/uL LAB HEMATOLOGY METHOD 11/10/2024 12:53 AM EDT [facility] Basophils Absolute 0.04 0.00 - 0.10 10*3/uL LAB HEMATOLOGY METHOD 11/10/2024 12:53 AM EDT [facility] Immature Granulocytes Absolute 0.06 0.00 - 0.06 10*3/uL LAB HEMATOLOGY METHOD 11/10/2024 12:53 AM EDT [facility] Blood Venous blood specimen / Unknown Venipuncture / Unknown 11/10/2024 12:31 AM EDT 11/10/2024 12:37 AM EDT Narrative [facility] - 11/10/2024 12:53 AM EDT Therapeutic decision making should be based on absolute values, rather than percentages. us Nathaly Nowak MD LAB BLOOD ORDERABLES Final Resu lt [facility] [address] [place] [address] * (ABNORMAL) Comprehensive Metabolic Panel, Plasma (11/10/2024 12:31 AM EDT) Glucose, Plasma 185(H) 74 - 99 mg/dL 11/10/2024 1:05 AM EDT [facility] BUN, Plasma 9 8 - 23 mg/dL 11/10/2024 1:05 AM EDT [facility] Creatinine, Plasma 0.72 0.70 - 1.20 mg/dL 11/10/2024 1:05 AM EDT [facility] BUN/Creatinine Ratio 13 11/10/2024 1:05 AM EDT [facility] Sodium, Plasma 135(L) 136 - 145 mmol/L 11/10/2024 1:05 AM EDT [facility] Potassium, Plasma 4.0 3.6 - 4.9 mmol/L 11/10/2024 1:05 AM EDT [facility] Chloride, Plasma 106 97 - 107 mmol/L 11/10/2024 1:05 AM EDT [facility] CO2, Plasma 19(L) 22 - 29 mmol/L 11/10/2024 1:05 AM EDT [facility] Anion Gap 10 6 - 16 mmol/L 11/10/2024 1:05 AM EDT [facility] Total Calcium, Plasma 7.8(L) 8.9 - 10.2 mg/dL 11/10/2024 1:05 AM EDT [facility] Total Protein 5.6(L) 6.3 - 7.9 g/dL 11/10/2024 1:05 AM EDT [facility] Albumin, Plasma 3.1(L) 3.5 - 5.2 g/dL 11/10/2024 1:05 AM EDT [facility] AST, Plasma 33 10 - 50 U/L 11/10/2024 1:05 AM EDT [facility] ALT, Plasma 25 10 - 50 U/L 11/10/2024 1:05 AM EDT [facility] Alkaline Phosphatase, Plasma 108 40 - 115 U/L 11/10/2024 1:05 AM EDT [facility] Total Bilirubin, Plasma <0.2(L) 0.2 - 1.1 mg/dL 11/10/2024 1:05 AM EDT [facility] eGFRcr 101.4 mL/min/1.7 3m*2 11/10/2024 1:05 AM EDT [facility] Comment:Reported eGFRcr in m L/min/1.73m2 is based the CKD-EPI 2020 equation that does not use a race coefficient. Blood Venous blood specimen / Unknown Venipuncture / Unknown 11/10/2024 12:31 AM EDT 11/10/2024 12:37 AM EDT us Nahtaly Nowak MD LAB BLOOD ORDERABLES Final Resu lt [facility] [address] [place] [address] * (ABNORMAL) POCT glucose meter (11/09/2024 8:04 PM EDT) POCT Glucose 114(H) 74 - 99 mg/dL 11/09/2024 8:06 PM EDT [facility] Comment:Accuracy of a glucos e result obtained from a capillary whole blood specimen relies upon adequate, non-compromised capillary blood flow. If the capillary glucose result is not consistent with the patient's clinical signs and symptoms, glucose testing should be repeated with either an arterial or venous sample on the glucometer or sent to the main labortory for testing. Comment 11/09/2024 8:06 PM EDT [facility] Research Instrumentation Technician ID Maximiliano Hansen II 11/09/2024 8:06 PM EDT [facility] Device ID [id number] 11/09/2024 8:06 PM EDT [facility] Specimen Type POC Capillary 11/09/2024 8:06 PM EDT [facility] Blood Capillary blood specimen / Unknown 11/09/2024 8:04 PM EDT 11/09/2024 8:06 PM EDT Nathaly Nowak MD LAB POINT OF CARE TE ST DOCKED DEVICE UNSOLICITED RESULTS Final Result Performing Organization Address [facility] de Phone Number [facility] [address] [place] [address] * (ABNORMAL) POCT glucose meter (11/09/2024 4:36 PM EDT) [facility] POCT Glucose 166(H) 74 - 99 mg/dL 11/09/2024 4:38 PM EDT [facility] Comment:Accuracy of [...] to the main labortory for testing. Comment 11/09/2024 4:38 PM EDT [facility] Research Instrumentation Technician ID Kristian Sosa 11/09/2024 4:38 PM EDT [facility] LAB Device ID [id number] 11/09/2024 4:38 PM EDT [facility] Specimen Type POC Capillary 11/09/2024 4:38 PM EDT [facility] Blood Capillary blood specimen / Unknown 11/09/2024 4:36 PM EDT 11/09/2024 4:38 PM EDT Nathaly Nowak MD LAB POINT OF CARE TE ST DOCKED DEVICE UNSOLICITED RESULTS Final Result Performing Organization Address City/[facility] Co de Phone Number [facility] [address] [place] [address] * PICC SINGLE LUMEN ([employer] LINK) (11/09/2024 1:11 PM EDT) Narrative Estefani Barraza RN - 11/09/2024 1:11 PM EDT Estefani Barraza RN 11/09/2024 1:12 PM Insert PICC line Date/Time: 11/09/2024 1:11 PM Performed by: Estefani Barraza RN Authorized by: Nathaly Nowak MD [place] Protocol: Verbal consent obtained?: Yes Written consent obtained?: Yes Risks and benefits: Risks, benefits and alternatives were discussed Consent given by: Patient Patient states understanding of procedure being performed: Yes Patient's understanding of procedure matches consent: Yes Procedure consent matches procedure scheduled: Yes Relevant documents present and verified: Yes Patient identity confirmed: Verbally with patient, arm band, provided demographic data and hospital-assigned identification number Time out: Immediately prior to the procedure a time out was called Indications: Vascular access Local anesthetic: Lidocaine 1% without epinephrine Sedation: Patient sedated: No Preparation: Skin prepped with 2% chlorhexidine Skin prep agent dried: Skin prep agent completely dried prior to procedure Sterile barriers: All five maximal sterile barriers used - gloves, gown, cap, mask and large sterile sheet Hand hygiene: Hand hygiene performed prior to catheter insertion Orientation: Right Location (Adult): Brachial vein Site selection rationale: Left pacemaker Catheter Lot #: [id number] Catheter microstrategy bi developer: Weft Catheter placed: Single lumen Catheter size: 4 Fr Catheter trimmed length: 42 Catheter threaded length: 42 Vein placed in: SVC Catheter cm indwellin Catheter cm outside: 0 Placement confirmed by: [employer] 3CG technology Pre-procedure: Landmarks identified Ultrasound guidance: Yes Sterile ultrasound techniques: Sterile gel and sterile probe covers were used Number of attempts: 1 Post-procedure: Adhesive securement device and sterile access caps placed on each lumen Dressing applied: CHG tegaderm Assessment: Blood return through all ports and free fluid flow Patient tolerated the procedure well with no immediate complications.: Yes PICC kit educational material was given to the patient.: Yes Nathaly Nowak MD IV THERAPY ORDERABLES Final Res ult * (ABNORMAL) POCT glucose meter (11/09/2024 11:50 AM EDT) POCT Glucose 127(H) 74 - 99 mg/dL 11/09/2024 11:51 AM EDT [facility] Comment:Accuracy of a glucos e result obtained from a capillary whole blood specimen relies upon adequate, non-compromised capillary blood flow. If the capillary glucose result is not consistent with the patient's clinical signs and symptoms, glucose testing should be repeated with either an arterial or venous sample on the glucometer or sent to the main labortory for testing. Comment 11/09/2024 11:51 AM EDT [facility] Research Instrumentation Technician Kristian Greco 11/09/2024 11:51 AM EDT [facility] LAB Device ID [id number] 11/09/2024 11:51 AM EDT [facility] Specimen Type POC Capillary 11/09/2024 11:51 AM EDT [facility] Blood Capillary blood specimen / Unknown 11/09/2024 11:50 AM EDT 11/09/2024 11:51 AM EDT Nathaly Nowak MD LAB POINT OF CARE TE ST DOCKED DEVICE UNSOLICITED RESULTS Final Result Performing Organization Address City/[facility]/ZIP Co de Phone Number [facility] [address] [place] [address] * (ABNORMAL) POCT glucose meter (11/09/2024 8:14 AM EDT) POCT Glucose 153(H) 74 - 99 mg/dL 11/09/2024 8:15 AM EDT [facility] Comment:Accuracy of a glucos e result obtained from a capillary whole blood specimen relies upon adequate, non-compromised capillary blood flow. If the capillary glucose result is not consistent with the patient's clinical signs and symptoms, glucose testing should be repeated with either an arterial or venous sample on the glucometer or sent to the main labortory for testing. Comment 11/09/2024 8:15 AM EDT [facility] Research Instrumentation Technician Kristian Greco 11/09/2024 8:15 AM EDT [facility] LAB Device ID [id number] 11/09/2024 8:15 AM EDT [facility] Specimen Type POC Capillary 11/09/2024 8:15 AM EDT [facility] Blood Capillary blood specimen / Unknown 11/09/2024 8:14 AM EDT 11/09/2024 8:15 AM EDT Nathaly Nowak MD LAB POINT OF CARE TE ST DOCKED DEVICE UNSOLICITED RESULTS Final Result Performing Organization Address City/[facility]/ZIP Co de Phone Number [facility] [address] [place] [address] * (ABNORMAL) CBC and Differential (11/09/2024 4:15 AM EDT) WBC Count 10.27 3.70 - 10.30 10*3/uL LAB HEMATOLOGY METHOD 11/09/2024 4:26 AM EDT [facility] RBC Count 3.14(L) 4.60 - 6.10 10*6/uL LAB HEMATOLOGY METHOD 11/09/2024 4:26 AM EDT [facility] HGB 9.2(L) 13.7 - 17.5 g/dL LAB HEMATOLOGY METHOD 11/09/2024 4:26 AM EDT [facility] HCT 28.3(L) 40.0 - 51.0 % LAB HEMATOLOGY METHOD 11/09/2024 4:26 AM EDT [facility] Platelet Count 468(H) 155 - 369 10*3/uL LAB HEMATOLOGY METHOD 11/09/2024 4:26 AM EDT [facility] MCV 90 79 - 98 fL LAB HEMATOLOGY METHOD 11/09/2024 4:26 AM EDT [facility] MCH 29.3 26.0 - 32.0 pg LAB HEMATOLOGY METHOD 11/09/2024 4:26 AM EDT [facility] MCHC 32.5 30.7 - 35.5 g/dL LAB HEMATOLOGY METHOD 11/09/2024 4:26 AM EDT [facility] RDW 13.1 11.5 - 14.5 % LAB HEMATOLOGY METHOD 11/09/2024 4:26 AM EDT [facility] MPV 8.7(L) 8.8 - 12.5 fL LAB HEMATOLOGY METHOD 11/09/2024 4:26 AM EDT [facility] nRBC 0.0 <=0.0 per 100 WBCs LAB HEMATOLOGY METHOD 11/09/2024 4:26 AM EDT [facility] Differential Type Automated LAB HEMATOLOGY METHOD 11/09/2024 4:26 AM EDT [facility] Neutrophils % 77 % LAB HEMATOLOGY METHOD 11/09/2024 4:26 AM EDT [facility] Lymphocytes % 13 % LAB HEMATOLOGY METHOD 11/09/2024 4:26 AM EDT [facility] Monocytes % 8 % LAB HEMATOLOGY METHOD 11/09/2024 4:26 AM EDT [facility] Eosinophils % 1 % LAB HEMATOLOGY METHOD 11/09/2024 4:26 AM EDT [facility] Basophils % 0 % LAB HEMATOLOGY METHOD 11/09/2024 4:26 AM EDT [facility] Immature Granulocytes % 1 % LAB HEMATOLOGY METHOD 11/09/2024 4:26 AM EDT [facility] Neutrophils Absolute 7.97(H) 1.60 - 6.10 10*3/uL LAB HEMATOLOGY METHOD 11/09/2024 4:26 AM EDT [facility] Lymphocytes Absolute 1.32 1.20 - 3.90 10*3/uL LAB HEMATOLOGY METHOD 11/09/2024 4:26 AM EDT [facility] Monocytes Absolute 0.83 0.30 - 0.90 10*3/uL LAB HEMATOLOGY METHOD 11/09/2024 4:26 AM EDT [facility] Eosinophils Absolute 0.07 0.00 - 0.50 10*3/uL LAB HEMATOLOGY METHOD 11/09/2024 4:26 AM EDT [facility] Basophils Absolute 0.03 0.00 - 0.10 10*3/uL LAB HEMATOLOGY METHOD 11/09/2024 4:26 AM EDT [facility] Immature Granulocytes Absolute 0.05 0.00 - 0.06 10*3/uL LAB HEMATOLOGY METHOD 11/09/2024 4:26 AM EDT [facility] Blood Venous blood specimen / Unknown Venipuncture / Unknown 11/09/2024 4:15 AM EDT 11/09/2024 4:18 AM EDT Narrative [facility] - 11/09/2024 4:26 AM EDT Therapeutic decision making should be based on absolute values, rather than percentages. us Nathaly Nowak MD LAB BLOOD ORDERABLES Final Resu lt [facility] [address] [place] [address] * (ABNORMAL) Comprehensive Metabolic Panel, Plasma (11/09/2024 4:15 AM EDT) Glucose, Plasma 171(H) 74 - 99 mg/dL 11/09/2024 4:47 AM EDT [facility] BUN, Plasma 9 8 - 23 mg/dL 11/09/2024 4:47 AM EDT [facility] Creatinine, Plasma 0.67(L) 0.70 - 1.20 mg/dL 11/09/2024 4:47 AM EDT [facility] BUN/Creatinine Ratio 13 11/09/2024 4:47 AM EDT [facility] Sodium, Plasma 134(L) 136 - 145 mmol/L 11/09/2024 4:47 AM EDT [facility] Potassium, Plasma 4.1 3.6 - 4.9 mmol/L 11/09/2024 4:47 AM EDT [facility] Chloride, Plasma 104 97 - 107 mmol/L 11/09/2024 4:47 AM EDT [facility] CO2, Plasma 21(L) 22 - 29 mmol/L 11/09/2024 4:47 AM EDT [facility] Anion Gap 9 6 - 16 mmol/L 11/09/2024 4:47 AM EDT [facility] Total Calcium, Plasma 8.4(L) 8.9 - 10.2 mg/dL 11/09/2024 4:47 AM EDT [facility] Total Protein 5.8(L) 6.3 - 7.9 g/dL 11/09/2024 4:47 AM EDT [facility] Albumin, Plasma 3.2(L) 3.5 - 5.2 g/dL 11/09/2024 4:47 AM EDT [facility] AST, Plasma 18 10 - 50 U/L 11/09/2024 4:47 AM EDT [facility] ALT, Plasma 17 10 - 50 U/L 11/09/2024 4:47 AM EDT [facility] Alkaline Phosphatase, Plasma 110 40 - 115 U/L 11/09/2024 4:47 AM EDT [facility] Total Bilirubin, Plasma <0.2(L) 0.2 - 1.1 mg/dL 11/09/2024 4:47 AM EDT [facility] eGFRcr 103.6 mL/min/1.7 3m*2 11/09/2024 4:47 AM EDT [facility] Comment:Reported eGFRcr in m L/min/1.73m2 is based the CKD-EPI 2020 equation that does not use a race coefficient. Blood Venous blood specimen / Unknown Venipuncture / Unknown 11/09/2024 4:15 AM EDT 11/09/2024 4:18 AM EDT Nathaly Nowak MD LAB BLOOD ORDERABLES Final Resu lt Performing Organization Address City/[facility]/ZIP Co de Phone Number [facility] [address] [place] [address] * (ABNORMAL) POCT glucose meter (11/09/2024 3:30 AM EDT) POCT Glucose 160(H) 74 - 99 mg/dL 11/09/2024 3:31 AM EDT [facility] Comment:Accuracy of [...] to the main labortory for testing. Comment 11/09/2024 3:31 AM EDT [facility] Research Instrumentation Technician ID Maximiliano Hansen II 11/09/2024 3:31 AM EDT [facility] Device ID [id number] 11/09/2024 3:31 AM EDT [facility] Specimen Type POC Capillary 11/09/2024 3:31 AM EDT [facility] Blood Capillary blood specimen / Unknown 11/09/2024 3:30 AM EDT 11/09/2024 3:31 AM EDT us Nathaly Nowak MD LAB POINT OF CARE TE ST DOCKED DEVICE UNSOLICITED RESULTS Final Result [facility] [address] [place] [address] * (ABNORMAL) POCT glucose meter (11/08/2024 7:21 PM EDT) POCT Glucose 292(H) 74 - 99 mg/dL 11/08/2024 7:22 PM EDT [facility] Comment:Accuracy of [...] to the main labortory for testing. Comment 11/08/2024 7:22 PM EDT [facility] Research Instrumentation Technician ID Maximiliano Hansen II 11/08/2024 7:22 PM EDT [facility] Device ID [id number] 11/08/2024 7:22 PM EDT [facility] Specimen Type POC Capillary 11/08/2024 7:22 PM EDT [facility] Blood Capillary blood specimen / Unknown 11/08/2024 7:21 PM EDT 11/08/2024 7:22 PM EDT us Nathaly Nowak MD LAB POINT OF CARE TE ST DOCKED DEVICE UNSOLICITED RESULTS Final Result Performing Organization Address City/State/[facility] Co de Phone Number [facility] [address] [place] [address] * (ABNORMAL) POCT glucose meter (11/08/2024 5:12 PM EDT) POCT Glucose 178(H) 74 - 99 mg/dL 11/08/2024 5:14 PM EDT [facility] Comment:Accuracy of a glucos e result obtained from a capillary whole blood specimen relies upon adequate, non-compromised capillary blood flow. If the capillary glucose result is not consistent with the patient's clinical signs and symptoms, glucose testing should be repeated with either an arterial or venous sample on the glucometer or sent to the main labortory for testing. Comment 11/08/2024 5:14 PM EDT [facility] Research Instrumentation Technician ID Estefani Sheth 11/08/2024 5:14 PM EDT [facility] Device ID [id number] 11/08/2024 5:14 PM EDT [facility] Specimen Type POC Capillary 11/08/2024 5:14 PM EDT [facility] Blood Capillary blood specimen / Unknown 11/08/2024 5:12 PM EDT 11/08/2024 5:14 PM EDT us Nathaly Nowak MD LAB POINT OF CARE TE ST DOCKED DEVICE UNSOLICITED RESULTS Final Result Performing Organization Address City/[facility]/ZIP Co de Phone Number [facility] [address] [place] [address] * (ABNORMAL) POCT glucose meter (11/08/2024 12:03 PM EDT) Pathologist [facility] POCT Glucose 191(H) 74 - 99 mg/dL 11/08/2024 12:05 PM EDT [facility] Comment:Accuracy of a glucos e result obtained from a capillary whole blood specimen relies upon adequate, non-compromised capillary blood flow. If the capillary glucose result is not consistent with the patient's clinical signs and symptoms, glucose testing should be repeated with either an arterial or venous sample on the glucometer or sent to the main labortory for testing. Comment 11/08/2024 12:05 PM EDT [facility] Research Instrumentation Technician ID Estefani Sheth 11/08/2024 12:05 PM EDT [facility] Device ID [id number] 11/08/2024 12:05 PM EDT [facility] Specimen Type POC Capillary 11/08/2024 12:05 PM EDT [facility] Blood Capillary blood specimen / Unknown 11/08/2024 12:03 PM EDT 11/08/2024 12:05 PM EDT Nathaly Nowak MD LAB POINT OF CARE TE ST DOCKED DEVICE UNSOLICITED RESULTS Final Result Performing Organization Address City/[facility]/ZIP Co de Phone Number [facility] [address] [place] [address] * Vancomycin, Peak, Plasma Please draw ~2 hours after 11/08 0600 dose of vancomycin finishes infusing.Consider obtaining level via peripheral stick. If peripheral stick is not feasible, please ensure that line is flushed well prior to drawing level.... (11/08/2024 9:24 AM EDT) Pathologist [facility] Vancomycin, Peak, Plasma 29.1 20.0 - 40.0 ug/mL 11/08/2024 10:31 AM EDT [facility] Blood Venous blood specimen / Unknown Venipuncture / Unknown 11/08/2024 9:24 AM EDT 11/08/2024 9:47 AM EDT Narrative [facility] - 11/08/2024 10:31 AM EDT Therapeutic Peak level: 20-40ug/mL Supra-therapeutic Peak level: >40 ug/mL us Nathaly Nowak MD LAB BLOOD ORDERABLES Final Resu lt Performing Organization Address City/[facility]/ZIP Co de Phone Number [facility] [address] [place] [address] * (ABNORMAL) POCT glucose meter (11/08/2024 8:00 AM EDT) Pathologist [facility] POCT Glucose 150(H) 74 - 99 mg/dL 11/08/2024 8:01 AM EDT [facility] Comment:Accuracy of [...] to the main labortory for testing. Comment 11/08/2024 8:01 AM EDT [facility] Research Instrumentation Technician ID Estefani Sheth 11/08/2024 8:01 AM EDT [facility] Device ID [id number] 11/08/2024 8:01 AM EDT [facility] Specimen Type POC Capillary 11/08/2024 8:01 AM EDT [facility] Blood Capillary blood specimen / Unknown 11/08/2024 8:00 AM EDT 11/08/2024 8:01 AM EDT us Nathaly Nowak MD LAB POINT OF CARE TE ST DOCKED DEVICE UNSOLICITED RESULTS Final Result Performing Organization Address City/[facility]/ZIP Co de Phone Number [facility] [address] [place] [address] * (ABNORMAL) CBC and Differential (11/08/2024 4:39 AM EDT) WBC Count 9.18 3.70 - 10.30 10*3/uL LAB HEMATOLOGY METHOD 11/08/2024 4:58 AM EDT [facility] RBC Count 3.11(L) 4.60 - 6.10 10*6/uL LAB HEMATOLOGY METHOD 11/08/2024 4:58 AM EDT [facility] HGB 9.2(L) 13.7 - 17.5 g/dL LAB HEMATOLOGY METHOD 11/08/2024 4:58 AM EDT [facility] HCT 28.9(L) 40.0 - 51.0 % LAB HEMATOLOGY METHOD 11/08/2024 4:58 AM EDT [facility] Platelet Count 485(H) 155 - 369 10*3/uL LAB HEMATOLOGY METHOD 11/08/2024 4:58 AM EDT [facility] MCV 93 79 - 98 fL LAB HEMATOLOGY METHOD 11/08/2024 4:58 AM EDT [facility] MCH 29.6 26.0 - 32.0 pg LAB HEMATOLOGY METHOD 11/08/2024 4:58 AM EDT [facility] MCHC 31.8 30.7 - 35.5 g/dL LAB HEMATOLOGY METHOD 11/08/2024 4:58 AM EDT [facility] RDW 13.0 11.5 - 14.5 % LAB HEMATOLOGY METHOD 11/08/2024 4:58 AM EDT [facility] MPV 8.8 8.8 - 12.5 fL LAB HEMATOLOGY METHOD 11/08/2024 4:58 AM EDT [facility] nRBC 0.0 <=0.0 per 100 WBCs LAB HEMATOLOGY METHOD 11/08/2024 4:58 AM EDT [facility] Differential Type Automated LAB HEMATOLOGY METHOD 11/08/2024 4:58 AM EDT [facility] Neutrophils % 69 % LAB HEMATOLOGY METHOD 11/08/2024 4:58 AM EDT [facility] Lymphocytes % 17 % LAB HEMATOLOGY METHOD 11/08/2024 4:58 AM EDT [facility] Monocytes % 10 % LAB HEMATOLOGY METHOD 11/08/2024 4:58 AM EDT [facility] Eosinophils % 2 % LAB HEMATOLOGY METHOD 11/08/2024 4:58 AM EDT [facility] Basophils % 1 % LAB HEMATOLOGY METHOD 11/08/2024 4:58 AM EDT [facility] Immature Granulocytes % 1 % LAB HEMATOLOGY METHOD 11/08/2024 4:58 AM EDT [facility] Neutrophils Absolute 6.40(H) 1.60 - 6.10 10*3/uL LAB HEMATOLOGY METHOD 11/08/2024 4:58 AM EDT [facility] Lymphocytes Absolute 1.59 1.20 - 3.90 10*3/uL LAB HEMATOLOGY METHOD 11/08/2024 4:58 AM EDT [facility] Monocytes Absolute 0.87 0.30 - 0.90 10*3/uL LAB HEMATOLOGY METHOD 11/08/2024 4:58 AM EDT [facility] Eosinophils Absolute 0.22 0.00 - 0.50 10*3/uL LAB HEMATOLOGY METHOD 11/08/2024 4:58 AM EDT [facility] Basophils Absolute 0.05 0.00 - 0.10 10*3/uL LAB HEMATOLOGY METHOD 11/08/2024 4:58 AM EDT [facility] Immature Granulocytes Absolute 0.05 0.00 - 0.06 10*3/uL LAB HEMATOLOGY METHOD 11/08/2024 4:58 AM EDT [facility] Blood Venous blood specimen / Unknown Venipuncture / Unknown 11/08/2024 4:39 AM EDT 11/08/2024 4:49 AM EDT Narrative [facility] - 11/08/2024 4:58 AM EDT Therapeutic decision making should be based on absolute values, rather than percentages. us Nathaly Nowak MD LAB BLOOD ORDERABLES Final Resu lt [facility] [address] [place] [address] * (ABNORMAL) Comprehensive Metabolic Panel, Plasma (11/08/2024 4:39 AM EDT) Glucose, Plasma 255(H) 74 - 99 mg/dL 11/08/2024 5:20 AM EDT [facility] BUN, Plasma 10 8 - 23 mg/dL 11/08/2024 5:20 AM EDT [facility] Creatinine, Plasma 0.75 0.70 - 1.20 mg/dL 11/08/2024 5:20 AM EDT [facility] BUN/Creatinine Ratio 13 11/08/2024 5:20 AM EDT [facility] Sodium, Plasma 133(L) 136 - 145 mmol/L 11/08/2024 5:20 AM EDT [facility] Potassium, Plasma 5.2(H) 3.6 - 4.9 mmol/L 11/08/2024 5:20 AM EDT [facility] Chloride, Plasma 105 97 - 107 mmol/L 11/08/2024 5:20 AM EDT [facility] CO2, Plasma 20(L) 22 - 29 mmol/L 11/08/2024 5:20 AM EDT [facility] Anion Gap 8 6 - 16 mmol/L 11/08/2024 5:20 AM EDT [facility] Total Calcium, Plasma 7.7(L) 8.9 - 10.2 mg/dL 11/08/2024 5:20 AM EDT [facility] Total Protein 5.6(L) 6.3 - 7.9 g/dL 11/08/2024 5:20 AM EDT [facility] Albumin, Plasma 2.8(L) 3.5 - 5.2 g/dL 11/08/2024 5:20 AM EDT [facility] AST, Plasma 20 10 - 50 U/L 11/08/2024 5:20 AM EDT [facility] Comment:Hemolyzed, result ma y be falsely increased. ALT, Plasma 14 10 - 50 U/L 11/08/2024 5:20 AM EDT [facility] Alkaline Phosphatase, Plasma 119(H) 40 - 115 U/L 11/08/2024 5:20 AM EDT [facility] Total Bilirubin, Plasma <0.2(L) 0.2 - 1.1 mg/dL 11/08/2024 5:20 AM EDT [facility] eGFRcr 100.1 mL/min/1.7 3m*2 11/08/2024 5:20 AM EDT [facility] Comment:Reported eGFRcr in m L/min/1.73m2 is based the CKD-EPI 2020 equation that does not use a race coefficient. Blood Venous blood specimen / Unknown Venipuncture / Unknown 11/08/2024 4:39 AM EDT 11/08/2024 4:43 AM EDT Nathaly Nowak MD LAB BLOOD ORDERABLES Final Resu lt Performing Organization Address [facility] de Phone Number [facility] [address] [place] [id number] * Vancomycin, Trough, Plasma Please draw ~30 minutes prior to dose due at 0600 on 11/08. Please do NOThold dose awaiting level to return. Consider obtaining level via peripheral stick. If peripheral stick is not feasible, please ensure that line is... (11/08/2024 4:39 AM EDT) [facility] Vancomycin, Trough, Plasma 18.7 10.0 - 20.0 ug/mL 11/08/2024 5:22 AM EDT [facility] Blood Venous blood specimen / Unknown Venipuncture / Unknown 11/08/2024 4:39 AM EDT 11/08/2024 4:43 AM EDT Narrative [facility] - 11/08/2024 5:22 AM EDT Therapeutic Trough level: 10-20ug/mL Supra-therapeutic Trough level: >20 ug/mL Nathaly Nowak MD LAB BLOOD ORDERABLES Final Resu Performing Organization Address [facility] Phone Number [facility] [address] [place] [phone] * (ABNORMAL) POCT glucose meter (11/07/2024 7:26 PM EDT) [facility] POCT Glucose 172(H) 74 - 99 mg/dL 11/07/2024 7:28 PM EDT [facility] Comment:Accuracy of a glucos e result obtained from a capillary whole blood specimen relies upon adequate, non-compromised capillary blood flow. If the capillary glucose result is not consistent with the patient's clinical signs and symptoms, glucose testing should be repeated with either an arterial or venous sample on the glucometer or sent to the main labortory for testing. Comment 11/07/2024 7:28 PM EDT [facility] Research Instrumentation Technician ID Hansen Maximiliano WALTERS 11/07/2024 7:28 PM EDT [facility] Device ID [id number] 11/07/2024 7:28 PM EDT [facility] Specimen Type POC Capillary 11/07/2024 7:28 PM EDT [facility] Blood Capillary blood specimen / Unknown 11/07/2024 7:26 PM EDT 11/07/2024 7:28 PM EDT Nathaly Nowak MD LAB POINT OF CARE TE ST DOCKED DEVICE UNSOLICITED RESULTS Final Result Performing Organization Address City/[facility]/ZIP Co de Phone Number [facility] [address] [place] [address] * (ABNORMAL) POCT glucose meter (11/07/2024 5:51 PM EDT) POCT Glucose 183(H) 74 - 99 mg/dL 11/07/2024 5:52 PM EDT [facility] Comment:Accuracy of [...] to the main labortory for testing. Comment 11/07/2024 5:52 PM EDT [facility] Research Instrumentation Technician ID Brigitte Castellon 11/07/2024 5:52 PM EDT [facility] LAB Device ID [id number] 11/07/2024 5:52 PM EDT [facility] Specimen Type POC Capillary 11/07/2024 5:52 PM EDT [facility] Blood Capillary blood specimen / Unknown 11/07/2024 5:51 PM EDT 11/07/2024 5:52 PM EDT Nathaly Nowak MD LAB POINT OF CARE TE ST DOCKED DEVICE UNSOLICITED RESULTS Final Result Performing Organization Address City/[facility]/ZIP Co de Phone Number [facility] [address] [place] [address] * (ABNORMAL) POCT glucose meter (11/07/2024 4:47 PM EDT) POCT Glucose 162(H) 74 - 99 mg/dL 11/07/2024 4:48 PM EDT [facility] Comment:Accuracy of [...] to the main labortory for testing. Comment 11/07/2024 4:48 PM EDT [facility] Research Instrumentation Technician ID Estefani Sheth 11/07/2024 4:48 PM EDT [facility] Device ID [id number] 11/07/2024 4:48 PM EDT [facility] Specimen Type POC Capillary 11/07/2024 4:48 PM EDT [facility] Blood Capillary blood specimen / Unknown 11/07/2024 4:47 PM EDT 11/07/2024 4:48 PM EDT Nathaly Nowak MD LAB POINT OF CARE TE ST DOCKED DEVICE UNSOLICITED RESULTS Final Result Performing Organization Address City/State/[facility] Co de Phone Number [facility] [address] [place] [address] * (ABNORMAL) POCT glucose meter (11/07/2024 12:22 PM EDT) [facility] POCT Glucose 172(H) 74 - 99 mg/dL 11/07/2024 12:24 PM EDT [facility] Comment:Accuracy of [...] to the main labortory for testing. Comment 11/07/2024 12:24 PM EDT [facility] Research Instrumentation Technician ID Estefani Sheth 11/07/2024 12:24 PM EDT [facility] Device ID [id number] 11/07/2024 12:24 PM EDT [facility] Specimen Type POC Capillary 11/07/2024 12:24 PM EDT [facility] Blood Capillary blood specimen / Unknown 11/07/2024 12:22 PM EDT 11/07/2024 12:24 PM EDT us Nathaly Nowak MD LAB POINT OF CARE TE ST DOCKED DEVICE UNSOLICITED RESULTS Final Result [facility] [address] [place] [address] * (ABNORMAL) CBC and Differential (11/07/2024 11:37 AM EDT) WBC Count 9.96 3.70 - 10.30 10*3/uL LAB HEMATOLOGY METHOD 11/07/2024 12:33 PM EDT [facility] RBC Count 2.81(L) 4.60 - 6.10 10*6/uL LAB HEMATOLOGY METHOD 11/07/2024 12:33 PM EDT [facility] HGB 8.5(L) 13.7 - 17.5 g/dL LAB HEMATOLOGY METHOD 11/07/2024 12:33 PM EDT [facility] HCT 26.0(L) 40.0 - 51.0 % LAB HEMATOLOGY METHOD 11/07/2024 12:33 PM EDT [facility] Platelet Count 524(H) 155 - 369 10*3/uL LAB HEMATOLOGY METHOD 11/07/2024 12:33 PM EDT [facility] MCV 93 79 - 98 fL LAB HEMATOLOGY METHOD 11/07/2024 12:33 PM EDT [facility] MCH 30.2 26.0 - 32.0 pg LAB HEMATOLOGY METHOD 11/07/2024 12:33 PM EDT [facility] MCHC 32.7 30.7 - 35.5 g/dL LAB HEMATOLOGY METHOD 11/07/2024 12:33 PM EDT [facility] RDW 13.1 11.5 - 14.5 % LAB HEMATOLOGY METHOD 11/07/2024 12:33 PM EDT [facility] MPV 9.0 8.8 - 12.5 fL LAB HEMATOLOGY METHOD 11/07/2024 12:33 PM EDT [facility] nRBC 0.0 <=0.0 per 100 WBCs LAB HEMATOLOGY METHOD 11/07/2024 12:33 PM EDT [facility] Differential Type Automated LAB HEMATOLOGY METHOD 11/07/2024 12:33 PM EDT [facility] Neutrophils % 72 % LAB HEMATOLOGY METHOD 11/07/2024 12:33 PM EDT [facility] Lymphocytes % 17 % LAB HEMATOLOGY METHOD 11/07/2024 12:33 PM EDT [facility] Monocytes % 9 % LAB HEMATOLOGY METHOD 11/07/2024 12:33 PM EDT [facility] Eosinophils % 1 % LAB HEMATOLOGY METHOD 11/07/2024 12:33 PM EDT [facility] Basophils % 1 % LAB HEMATOLOGY METHOD 11/07/2024 12:33 PM EDT [facility] Immature Granulocytes % 0 % LAB HEMATOLOGY METHOD 11/07/2024 12:33 PM EDT [facility] Neutrophils Absolute 7.19(H) 1.60 - 6.10 10*3/uL LAB HEMATOLOGY METHOD 11/07/2024 12:33 PM EDT [facility] Lymphocytes Absolute 1.66 1.20 - 3.90 10*3/uL LAB HEMATOLOGY METHOD 11/07/2024 12:33 PM EDT [facility] Monocytes Absolute 0.88 0.30 - 0.90 10*3/uL LAB HEMATOLOGY METHOD 11/07/2024 12:33 PM EDT [facility] Eosinophils Absolute 0.14 0.00 - 0.50 10*3/uL LAB HEMATOLOGY METHOD 11/07/2024 12:33 PM EDT [facility] Basophils Absolute 0.05 0.00 - 0.10 10*3/uL LAB HEMATOLOGY METHOD 11/07/2024 12:33 PM EDT [facility] Immature Granulocytes Absolute 0.04 0.00 - 0.06 10*3/uL LAB HEMATOLOGY METHOD 11/07/2024 12:33 PM EDT [facility] Blood Venous blood specimen / Unknown Venipuncture / Unknown 11/07/2024 11:37 AM EDT 11/07/2024 12:24 PM EDT [facility] - 11/07/2024 12:33 PM EDT Therapeutic decision making should be based on absolute values, rather than percentages. us Nathaly Nowak MD LAB BLOOD ORDERABLES Final Resu lt [facility] [address] [place] [address] * (ABNORMAL) Comprehensive Metabolic Panel, Plasma (11/07/2024 11:37 AM EDT) Glucose, Plasma 173(H) 74 - 99 mg/dL 11/07/2024 1:31 PM EDT [facility] BUN, Plasma 13 8 - 23 mg/dL 11/07/2024 1:31 PM EDT [facility] Creatinine, Plasma 0.92 0.70 - 1.20 mg/dL 11/07/2024 1:31 PM EDT [facility] BUN/Creatinine Ratio 11/07/2024 1:31 PM EDT [facility] Sodium, Plasma 136 136 - 145 mmol/L 11/07/2024 1:31 PM EDT [facility] Potassium, Plasma 4.0 3.6 - 4.9 mmol/L 11/07/2024 1:31 PM EDT [facility] Chloride, Plasma 104 97 - 107 mmol/L 11/07/2024 1:31 PM EDT [facility] CO2, Plasma 23 22 - 29 mmol/L 11/07/2024 1:31 PM EDT [facility] Anion Gap 9 6 - 16 mmol/L 11/07/2024 1:31 PM EDT [facility] Total Calcium, Plasma 7.8(L) 8.9 - 10.2 mg/dL 11/07/2024 1:31 PM EDT [facility] Total Protein 5.7(L) 6.3 - 7.9 g/dL 11/07/2024 1:31 PM EDT [facility] Albumin, Plasma 3.0(L) 3.5 - 5.2 g/dL 11/07/2024 1:31 PM EDT [facility] AST, Plasma 15 10 - 50 U/L 11/07/2024 1:31 PM EDT [facility] ALT, Plasma 16 10 - 50 U/L 11/07/2024 1:31 PM EDT [facility] Alkaline Phosphatase, Plasma 119(H) 40 - 115 U/L 11/07/2024 1:31 PM EDT [facility] Total Bilirubin, Plasma <0.2(L) 0.2 - 1.1 mg/dL 11/07/2024 1:31 PM EDT [facility] eGFRcr 92.3 mL/min/1.7 3m*2 11/07/2024 1:31 PM EDT [facility] Comment:Reported eGFRcr in m L/min/1.73m2 is based the CKD-EPI 2020 equation that does not use a race coefficient. Blood Venous blood specimen / Unknown Venipuncture / Unknown 11/07/2024 11:37 AM EDT 11/07/2024 12:23 PM EDT Nathaly Nowak MD LAB BLOOD ORDERABLES Final Resu lt Performing Organization Address City/[facility]/ZIP Co de Phone Number [facility] [address] [place] [address] * Type and Screen (11/07/2024 11:37 AM EDT) Pathologist [facility] ABO/Rh A Negative 11/06/2024 8:56 AM EDT BLOOD BANK Antibody Screen Negative 11/06/2024 8:56 AM EDT BLOOD BANK Specimen Expiration 11/10/2024 23:59 11/06/2024 8:56 AM EDT BLOOD BANK Blood Venous blood specimen / Unknown Venipuncture / Unknown 11/07/2024 11:37 AM EDT 11/07/2024 11:50 AM EDT Sabrina DOSHI LAB BLOOD BANK TEST ORDERABLES F inal Result Performing Organization Address [facility] de Phone Number BLOOD BANK [address] [place] [address], * (ABNORMAL) POCT glucose meter (11/07/2024 10:34 AM EDT) Pathologist [facility] POCT Glucose 199(H) 74 - 99 mg/dL 11/07/2024 10:36 AM EDT [facility] Comment:Accuracy of a glucos e result obtained from a capillary whole blood specimen relies upon adequate, non-compromised capillary blood flow. If the capillary glucose result is not consistent with the patient's clinical signs and symptoms, glucose testing should be repeated with either an arterial or venous sample on the glucometer or sent to the main labortory for testing. Comment 11/07/2024 10:36 AM EDT [facility] Research Instrumentation Technician ID Joy Iraheta 11/07/2024 10:36 AM EDT HEALTHCARE LAB Device ID [id number] 11/07/2024 10:36 AM EDT [facility]ALTH[facility]ARE LAB Specimen Type POC Capillary 11/07/2024 10:36 AM EDT [facility] Blood Capillary blood specimen / Unknown 11/07/2024 10:34 AM EDT 11/07/2024 10:36 AM EDT Nathaly Nowak MD LAB POINT OF CARE TE ST DOCKED DEVICE UNSOLICITED RESULTS Final Result Performing Organization Address City/[facility] Co de Phone Number [facility] [address] [place] [address] * (ABNORMAL) POCT glucose meter (11/07/2024 9:34 AM EDT) [facility] POCT Glucose 208(H) 74 - 99 mg/dL 11/07/2024 9:36 AM EDT [facility] Comment:Accuracy of [...] to the main labortory for testing. Comment 11/07/2024 9:36 AM EDT [facility] Research Instrumentation Technician ID Brigitte Castellon 11/07/2024 9:36 AM EDT [facility] Device ID [id number] 11/07/2024 9:36 AM EDT [facility] Specimen Type POC Capillary 11/07/2024 9:36 AM EDT [facility] Blood Capillary blood specimen / Unknown 11/07/2024 9:34 AM EDT 11/07/2024 9:36 AM EDT Nathaly Nowak MD LAB POINT OF CARE TE ST DOCKED DEVICE UNSOLICITED RESULTS Final Result [facility] [address] [place] [address] * (ABNORMAL) POCT glucose meter (11/07/2024 8:20 AM EDT) [facility] POCT Glucose 137(H) 74 - 99 mg/dL 11/07/2024 8:22 AM EDT [facility] Comment:Accuracy of [...] to the main labortory for testing. Comment 11/07/2024 8:22 AM EDT [facility] Research Instrumentation Technician ID Estefani Sheth Chris 11/07/2024 8:22 AM EDT [facility] Device ID [id number] 11/07/2024 8:22 AM EDT [facility] Specimen Type POC Capillary 11/07/2024 8:22 AM EDT [facility] Blood Capillary blood specimen / Unknown 11/07/2024 8:20 AM EDT 11/07/2024 8:22 AM EDT Nathaly Nowak MD LAB POINT OF CARE TE ST DOCKED DEVICE UNSOLICITED RESULTS Final Result [facility] [address] [place] [address] * (ABNORMAL) POCT glucose meter (11/07/2024 7:21 AM EDT) [facility] POCT Glucose 151(H) 74 - 99 mg/dL 11/07/2024 7:22 AM EDT [facility] Comment:Accuracy of [...] to the main labortory for testing. Comment 11/07/2024 7:22 AM EDT [facility] Research Instrumentation Technician ID Brigitte Castellon 11/07/2024 7:22 AM EDT [facility] Device ID [id number] 11/07/2024 7:22 AM EDT [facility] Specimen Type POC Capillary 11/07/2024 7:22 AM EDT [facility] Blood Capillary blood specimen / Unknown 11/07/2024 7:21 AM EDT 11/07/2024 7:22 AM EDT Nathaly Nowak MD LAB POINT OF CARE TE ST DOCKED DEVICE UNSOLICITED RESULTS Final Result Performing Organization Address City/[facility] Co de Phone Number [facility] [address] [place] [address] * (ABNORMAL) POCT glucose meter (11/07/2024 6:25 AM EDT) POCT Glucose 144(H) 74 - 99 mg/dL 11/07/2024 6:27 AM EDT [facility] Comment:Accuracy of a glucos e result obtained from a capillary whole blood specimen relies upon adequate, non-compromised capillary blood flow. If the capillary glucose result is not consistent with the patient's clinical signs and symptoms, glucose testing should be repeated with either an arterial or venous sample on the glucometer or sent to the main labortory for testing. Comment 11/07/2024 6:27 AM EDT [facility] Research Instrumentation Technician ID Nelda Gerber 11/08/19 6:27 AM EDT [facility] Device ID [id number] 11/07/2024 6:27 AM EDT [facility] Specimen Type POC Capillary 11/07/2024 6:27 AM EDT [facility] Blood Capillary blood specimen / Unknown 11/07/2024 6:25 AM EDT 11/07/2024 6:27 AM EDT us Nathaly Nowak MD LAB POINT OF CARE TE ST DOCKED DEVICE UNSOLICITED RESULTS Final Result Performing Organization Address City/[facility] Co de Phone Number [facility] [address] [place] [address] * (ABNORMAL) POCT glucose meter (11/07/2024 5:03 AM EDT) POCT Glucose 139(H) 74 - 99 mg/dL 11/07/2024 5:08 AM EDT [facility] Comment:Accuracy of a glucos e result obtained from a capillary whole blood specimen relies upon adequate, non-compromised capillary blood flow. If the capillary glucose result is not consistent with the patient's clinical signs and symptoms, glucose testing should be repeated with either an arterial or venous sample on the glucometer or sent to the main labortory for testing. Comment 11/07/2024 5:08 AM EDT [facility] Research Instrumentation Technician ID Nelda Gerber 11/08/19 5:08 AM EDT [facility] Device ID [id number] 11/07/2024 5:08 AM EDT [facility] Specimen Type POC Capillary 11/07/2024 5:08 AM EDT [facility] Blood Capillary blood specimen / Unknown 11/07/2024 5:03 AM EDT 11/07/2024 5:08 AM EDT Nathaly Nowak MD LAB POINT OF CARE TE ST DOCKED DEVICE UNSOLICITED RESULTS Final Result [facility] [address] [place] [address] * (ABNORMAL) POCT glucose meter (11/07/2024 4:16 AM EDT) [facility] POCT Glucose 142(H) 74 - 99 mg/dL 11/07/2024 4:18 AM EDT [facility] Comment:Accuracy of a glucos e result obtained from a capillary whole blood specimen relies upon adequate, non-compromised capillary blood flow. If the capillary glucose result is not consistent with the patient's clinical signs and symptoms, glucose testing should be repeated with either an arterial or venous sample on the glucometer or sent to the main labortory for testing. Comment 11/07/2024 4:18 AM EDT [facility] Research Instrumentation Technician ID Nelda Gerber 11/08/19 4:18 AM EDT [facility] Device ID [id number] 11/07/2024 4:18 AM EDT [facility] Specimen Type POC Capillary 11/07/2024 4:18 AM EDT [facility] Blood Capillary blood specimen / Unknown 11/07/2024 4:16 AM EDT 11/07/2024 4:18 AM EDT Nathaly Nowak MD LAB POINT OF CARE TE ST DOCKED DEVICE UNSOLICITED RESULTS Final Result Performing Organization Address [facility] de Phone Number [facility] [address] [place] [address] * (ABNORMAL) POCT glucose meter (11/07/2024 3:21 AM EDT) [facility] POCT Glucose 141(H) 74 - 99 mg/dL 11/07/2024 3:23 AM EDT [facility] Comment:Accuracy of [...] to the main labortory for testing. Comment 11/07/2024 3:23 AM EDT [facility] Research Instrumentation Technician ID Nelda Gerber 11/08/19 3:23 AM EDT [facility] Device ID [id number] 11/07/2024 3:23 AM EDT [facility] Specimen Type POC Capillary 11/07/2024 3:23 AM EDT [facility] Blood Capillary blood specimen / Unknown 11/07/2024 3:21 AM EDT 11/07/2024 3:23 AM EDT us Nathaly Nowak MD LAB POINT OF CARE TE ST DOCKED DEVICE UNSOLICITED RESULTS Final Result Performing Organization Address City/[facility] de Phone Number [facility] [address] [place] [address] * (ABNORMAL) POCT glucose meter (11/07/2024 2:10 AM EDT) [facility] POCT Glucose 146(H) 74 - 99 mg/dL 11/07/2024 2:12 AM EDT [facility] Comment:Accuracy of [...] to the main labortory for testing. Comment 11/07/2024 2:12 AM EDT [facility] Research Instrumentation Technician ID Nelda Gerber 11/08/19 2:12 AM EDT [facility] Device ID [id number] 11/07/2024 2:12 AM EDT [facility] Specimen Type POC Capillary 11/07/2024 2:12 AM EDT [facility] Blood Capillary blood specimen / Unknown 11/07/2024 2:10 AM EDT 11/07/2024 2:12 AM EDT Nathaly Nowak MD LAB POINT OF CARE TE ST DOCKED DEVICE UNSOLICITED RESULTS Final Result Performing Organization Address [facility] de Phone Number [facility] [address] [place] [address] * (ABNORMAL) POCT glucose meter (11/07/2024 1:08 AM EDT) POCT Glucose 135(H) 74 - 99 mg/dL 11/07/2024 1:10 AM EDT [facility] Comment:Accuracy of [...] to the main labortory for testing. Comment 11/07/2024 1:10 AM EDT [facility] Research Instrumentation Technician ID Nelda Gerber 11/08/19 1:10 AM EDT [facility] Device ID [id number] 11/07/2024 1:10 AM EDT [facility] Specimen Type POC Capillary 11/07/2024 1:10 AM EDT [facility] Blood Capillary blood specimen / Unknown 11/07/2024 1:08 AM EDT 11/07/2024 1:10 AM EDT us Nathaly Nowak MD LAB POINT OF CARE TE ST DOCKED DEVICE UNSOLICITED RESULTS Final Result Performing Organization Address [facility] Co de Phone Number [facility] [address] [place] [address] * (ABNORMAL) POCT glucose meter (11/07/2024 12:10 AM EDT) [facility] POCT Glucose 127(H) 74 - 99 mg/dL 11/07/2024 12:13 AM EDT [facility] Comment:Accuracy of a glucos e result obtained from a capillary whole blood specimen relies upon adequate, non-compromised capillary blood flow. If the capillary glucose result is not consistent with the patient's clinical signs and symptoms, glucose testing should be repeated with either an arterial or venous sample on the glucometer or sent to the main labortory for testing. Comment 11/07/2024 12:13 AM EDT [facility] Research Instrumentation Technician ID Nelda Gerber 11/08/19 12:13 AM EDT [facility] Device ID [id number] 11/07/2024 12:13 AM EDT [facility] Specimen Type POC Capillary 11/07/2024 12:13 AM EDT [facility] Blood Capillary blood specimen / Unknown 11/07/2024 12:10 AM EDT 11/07/2024 12:13 AM EDT Nathaly Nowak MD LAB POINT OF CARE TE ST DOCKED DEVICE UNSOLICITED RESULTS Final Result [facility] [address] [place] [address] * (ABNORMAL) POCT glucose meter (11/06/2024 11:14 PM EDT) [facility] POCT Glucose 71(L) 74 - 99 mg/dL 11/06/2024 11:16 PM EDT [facility] Comment:Accuracy of a glucos e result obtained from a capillary whole blood specimen relies upon adequate, non-compromised capillary blood flow. If the capillary glucose result is not consistent with the patient's clinical signs and symptoms, glucose testing should be repeated with either an arterial or venous sample on the glucometer or sent to the main labortory for testing. Comment 11/06/2024 11:16 PM EDT [facility] Research Instrumentation Technician ID Nelda Gerber 11/07/19 11:16 PM EDT [facility] [facility] Device ID [id number] 11/06/2024 11:16 PM EDT [facility] Specimen Type POC Capillary 11/06/2024 11:16 PM EDT [facility] Blood Capillary blood specimen / Unknown 11/06/2024 11:14 PM EDT 11/06/2024 11:16 PM EDT Nathaly Nowak MD LAB POINT OF CARE TE ST DOCKED DEVICE UNSOLICITED RESULTS Final Result Performing Organization Address City/[facility]/ZIP Co de Phone Number [facility] [address] [place] [address] * (ABNORMAL) POCT glucose meter (11/06/2024 10:07 PM EDT) POCT Glucose 140(H) 74 - 99 mg/dL 11/06/2024 10:09 PM EDT [facility] Comment:Accuracy of [...] to the main labortory for testing. Comment 11/06/2024 10:09 PM EDT [facility] Research Instrumentation Technician ID Nelda Gerber 11/07/19 10:09 PM EDT [facility] Device ID [id number] 11/06/2024 10:09 PM EDT [facility] Specimen Type POC Capillary 11/06/2024 10:09 PM EDT [facility] Blood Capillary blood specimen / Unknown 11/06/2024 10:07 PM EDT 11/06/2024 10:09 PM EDT Nathaly Nowak MD LAB POINT OF CARE TE ST DOCKED DEVICE UNSOLICITED RESULTS Final Result Performing Organization Address City/[facility]/ZIP Co de Phone Number [facility] [address] [place] [address] * (ABNORMAL) POCT glucose meter (11/06/2024 8:22 PM EDT) POCT Glucose 256(H) 74 - 99 mg/dL 11/06/2024 8:25 PM EDT [facility] Comment:Accuracy of [...] to the main labortory for testing. Comment 11/06/2024 8:25 PM EDT [facility] Research Instrumentation Technician ID Nelda Gerber 11/07/19 8:25 PM EDT [facility] Device ID [id number] 11/06/2024 8:25 PM EDT [facility] Specimen Type POC Capillary 11/06/2024 8:25 PM EDT [facility] Blood Capillary blood specimen / Unknown 11/06/2024 8:22 PM EDT 11/06/2024 8:25 PM EDT us Nathaly Nowak MD LAB POINT OF CARE TE ST DOCKED DEVICE UNSOLICITED RESULTS Final Result Performing Organization Address City/State/[facility] Co de Phone Number [facility] [address] [place] [address] * (ABNORMAL) POCT glucose meter (11/06/2024 7:31 PM EDT) [employer] [facility] POCT Glucose 359(H) 74 - 99 mg/dL 11/06/2024 7:32 PM EDT [facility] Comment:Accuracy of [...] to the main labortory for testing. Comment 11/06/2024 7:32 PM EDT [facility] Research Instrumentation Technician ID Nelda Gerber 11/07/19 7:32 PM EDT [facility] Device ID [id number] 11/06/2024 7:32 PM EDT [facility] Specimen Type POC Capillary 11/06/2024 7:32 PM EDT [facility] Blood Capillary blood specimen / Unknown 11/06/2024 7:31 PM EDT 11/06/2024 7:32 PM EDT Nathaly Nowak MD LAB POINT OF CARE TE ST DOCKED DEVICE UNSOLICITED RESULTS Final Result Performing Organization Address City/[facility] Co de Phone Number [facility] [address] [place] [address] * (ABNORMAL) POCT glucose meter (11/06/2024 6:15 PM EDT) POCT Glucose 368(H) 74 - 99 mg/dL 11/06/2024 6:17 PM EDT [facility] Comment:Accuracy of [...] to the main labortory for testing. Comment 11/06/2024 6:17 PM EDT [facility] Research Instrumentation Technician ID Estefani Sheth 11/06/2024 6:17 PM EDT [facility] Device ID [id number] 11/06/2024 6:17 PM EDT [facility] Specimen Type POC Capillary 11/06/2024 6:17 PM EDT [facility] Blood Capillary blood specimen / Unknown 11/06/2024 6:15 PM EDT 11/06/2024 6:17 PM EDT Nathaly Nowak MD LAB POINT OF CARE TE ST DOCKED DEVICE UNSOLICITED RESULTS Final Result Performing Organization Address City/[facility] Co de Phone Number [facility] [address] [place] [address] * (ABNORMAL) POCT glucose meter (11/06/2024 4:57 PM EDT) POCT Glucose 417(H) 74 - 99 mg/dL 11/06/2024 4:58 PM EDT [facility] Comment:Accuracy of [...] to the main labortory for testing. Comment 11/06/2024 4:58 PM EDT [facility] Research Instrumentation Technician ID Estefani Sheth 11/06/2024 4:58 PM EDT [facility] Device ID [id number] 11/06/2024 4:58 PM EDT [facility] Specimen Type POC Capillary 11/06/2024 4:58 PM EDT [facility] Blood Capillary blood specimen / Unknown 11/06/2024 4:57 PM EDT 11/06/2024 4:58 PM EDT us Nathaly Nowak MD LAB POINT OF CARE TE ST DOCKED DEVICE UNSOLICITED RESULTS Final Result Performing Organization Address City/[facility]/ZIP Co de Phone Number [facility] [address] [place] [address] * (ABNORMAL) POCT glucose meter (11/06/2024 2:08 PM EDT) POCT Glucose 253(H) 74 - 99 mg/dL 11/06/2024 2:09 PM EDT [facility] Comment:Accuracy of [...] to the main labortory for testing. Comment 11/06/2024 2:09 PM EDT [facility] Research Instrumentation Technician ID Brigitte Castellon 11/06/2024 2:09 PM EDT [facility] Device ID [id number] 11/06/2024 2:09 PM EDT [facility] Specimen Type POC Capillary 11/06/2024 2:09 PM EDT [facility] Blood Capillary blood specimen / Unknown 11/06/2024 2:08 PM EDT 11/06/2024 2:09 PM EDT us Nathaly Nowak MD LAB POINT OF CARE TE ST DOCKED DEVICE UNSOLICITED RESULTS Final Result Performing Organization Address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 Given 11/07/2024 9:40 AM EDT 75 mg Given 11/06/2024 2:28 PM EDT 75 mg dextrose 10 % (D10W) bolus 125 mL 125 mL, Intravenous, Every 15 min PRN, Starting on Yadira 11/07/24 at 0854, Until Yadira 11/14/24 at 1804, Administer over 15 Minutes, Routine, low blood sugar BG 51-89 mg/dL dextrose 10 % (D10W) bolus 250 mL 250 mL, Intravenous, Every 15 min PRN, Starting on Mon11/07/24 at 0854, Until Mon11/14/24 at 1804, Administer over 15 Minutes, Routine, PRN low blood sugar BG =/<50 mg/dL enoxaparin (Lovenox) syringe 40 mg 40 mg, Subcutaneous, Daily, First dose on Mon11/06/24 at 1445, Until Discontinued, Routine Given 11/07/2024 9:40 AM EDT 40 mg Left Lower Abdomen Given 11/06/2024 2:28 PM EDT 40 mg Le ft Lower Abdomen ertapenem (INVanz) 1 g in sodium chloride 0.9% 100 mL IVPB (vial adapter required) 1 g, Intravenous, Every 24 hours, First dose on Mon11/13/24 at 0715, Until Discontinued, Routine New Bag 11/14/2024 9:30 AM EDT 1 g 220 mL/hr New Bag 11/13/2024 8:39 AM EDT 1 g 220 mL/hr glucagon (human recombinant) injection 1 mg 1 mg, Intramuscular, Every 15 min PRN, Starting on Mon11/07/24 at 0854, Until Mon11/14/24 at 1804, Routine, low blood sugar per Hypoglycemia Prevention and Treatment protocol glucose (Glutose) 40 % oral gel 15-30 grams of glucose 15-30 grams of glucose, Sublingual, Every 15 min PRN, Starting on Mon11/07/24 at 0854, Until Mon11/14/24 at 1804, Routine, low blood sugar, per Hypoglycemia Prevention and Treatment protocol hydrALAZINE (Apresoline) injection 10 mg 10 mg, Intravenous, Every 6 hours PRN, Starting on Mon11/08/24 at 1826, Until Mon11/14/24 at 0922, Routine, high blood pressure, For SBP > 180, Hold for HR > 100 Given 11/08/2024 11:52 PM EDT 10 mg HYDROmorphone (Dilaudid) injection 0.5 mg 0.5 mg, Intravenous, Every 3 hours PRN, Starting on Mon11/06/24 at 1201, Until Mon11/13/24 at 1524, Routine, Recovery(Phase II-Outpatient)/On Unit(Inpatient), breakthrough pain unrelieved by PO meds Given 11/11/2024 2:43 PM EDT 0.5 mg insulin glargine-yfgn 100 UNIT/ML injection 10 Units 10 Units, Subcutaneous, Once, 1 dose, On Mon11/07/24 at 0945, Routine Given 11/07/2024 9:38 AM EDT 10 Units Left Lower Abdomen insulin glargine-yfgn 100 UNIT/ML injection 28 Units 28 Units, Subcutaneous, Nightly, First dose on Mon11/07/24 at 2100, Until Discontinued, Routine Given 11/13/2024 8:32 PM EDT 28 Units Left Upper Arm (Back ) Given 11/12/2024 9:26 PM EDT 28 Units Le ft Upper Arm (Back) Given 11/11/2024 8:55 PM EDT 28 Units Le ft Upper Arm (Back) insulin lispro (Admelog) 100 units/mL injection - Correction - Resistant Dose 0-10 Units, Subcutaneous, 3 times daily with meals, First dose on Mon11/06/24 at 1300, Until Discontinued, Routine, Recovery(Phase II-Outpatient)/On Unit(Inpatient) Given 11/06/2024 2:28 PM EDT 6 Units Left Upper Arm (Back ) insulin lispro (Admelog) 100 units/mL injection - Correction - Resistant Dose 0-10 Units, Subcutaneous, 3 times daily with meals, First dose on Mon11/07/24 at 0945, Until Discontinued, Routine Given 11/14/2024 12:10 PM EDT 4 Units Left Lower Abdomen Given 11/14/2024 8:56 AM EDT 2 Units Le ft Lower Abdomen Given 11/13/2024 8:39 AM EDT 2 Units Le ft Upper Arm (Back) insulin lispro (Admelog) injection - Correction - Nighttime Dose 0-3 Units, Subcutaneous, 2 times nightly (2099 & 0300), First dose on Mon11/07/24 at 2100, Until Discontinued, Routine Given 11/13/2024 9:00 PM EDT 1 Units Left Upper Arm (Back ) Given 11/08/2024 8:22 PM EDT 1 Units Le ft Upper Arm (Back) insulin regular (HumuLIN R,NovoLIN R) 100 units/mL injection - Correction - Standard Dose 0-5 Units, Subcutaneous, Every 6 hours scheduled, First dose on Mon11/06/24 at 0040, Until Discontinued, Routine Given 11/06/2024 6:03 AM EDT 1 Units Right Upper Arm (Susan k) Given 11/06/2024 1:40 AM EDT 2 Units Ri ght Lower Abdomen insulin regular (HumuLIN, NovoLIN) bolus from bag 1-10 Units 1-10 Units, Intravenous, Once, 1 dose, On Mon11/06/24 at 1815, Routine Bolus from Bag 11/06/2024 6:21 PM EDT 3.68 Units insulin regular (HumuLIN, NovoLIN) bolus from bag 3 Units 3 Units, Intravenous, Every 2 hour PRN, Starting on Mon11/06/24 at 1726, Until Yadira 11/07/24 at 0853, Routine, if FSBS => 301 Bolus from Bag 11/06/2024 7:39 PM EDT 3 Units insulin regular in sodium chloride 0.9 % 1 UNIT/ML infusion (Standard Insulin Protocol) 0.5-30 Units/hr (0.5-30 mL/hr), Intravenous, Titrated, Starting on Mon11/06/24 at 1815, Until Mon11/07/24 at 1051, Routine New Bag 11/07/2024 10:35 AM EDT 2.2 Units/hr 2.2 mL/hr Rate Change - Dual Sign 11/07/2024 9:37 AM EDT 1.195 Units /hr 1.2 mL/hr Rate Change - Dual Sign 11/07/2024 8:27 AM EDT 0.915 Units /hr 0.92 mL/hr lactated Ringer's infusion 84 mL/hr, Intravenous, Continuous, Starting on Mon11/06/24 at 0040, Until Mon11/06/24 at 1206, Routine Continued by Anesthesia 11/06/2024 10:47 AM EDT 84 mL/hr New Bag 11/06/2024 1:40 AM EDT 84 mL/hr 84 mL/hr lactobacillus acidophilus (Floranex) tablet 1 tablet 1 tablet, Oral, 2 times daily with meals, First dose on Mon11/11/24 at 1730, Until Discontinued, Routine Given 11/14/2024 8:56 AM EDT 1 tablet Given 11/13/2024 5:53 PM EDT 1 tablet Given 11/13/2024 8:38 AM EDT 1 tablet lisinopril tablet 10 mg 10 mg, Oral, Daily, First dose on Yadira 11/07/24 at 0900, Until Discontinued, Routine, Recovery(Phase II-Outpatient)/On Unit(Inpatient) Given 11/08/2024 8:37 AM EDT 10 mg Given 11/07/2024 9:40 AM EDT 10 mg lisinopril tablet 10 mg 10 mg, Oral, Once, 1 dose, On Mon11/08/24 at 1130, Routine Given 11/08/2024 12:58 PM EDT 10 mg lisinopril tablet 10 mg 10 mg, Oral, Once, 1 dose, On 11/11/24 at 0945, Routine Given 11/11/2024 9:42 AM EDT 10 mg lisinopril tablet 20 mg 20 mg, Oral, Daily, First dose (after last modification) on 11/09/24 at 0900, Until Discontinued, Routine, Recovery(Phase II-Outpatient)/On Unit(Inpatient) Given 11/11/2024 8:26 AM EDT 20 mg Given 11/10/2024 8:34 AM EDT 20 mg Given 11/09/2024 8:53 AM EDT 20 mg lisinopril tablet 30 mg 30 mg, Oral, Daily, First dose (after last modification) on Mon11/12/24 at 0900, Until Discontinued, Routine, Recovery(Phase II-Outpatient)/On Unit(Inpatient) Given 11/12/2024 9:38 AM EDT 30 mg lisinopril tablet 40 mg 40 mg, Oral, Daily, First dose (after last modification) on Mon11/13/24 at 0930, Until Discontinued, Routine, Recovery(Phase II-Outpatient)/On Unit(Inpatient) Given 11/14/2024 8:56 AM EDT 40 mg Given 11/13/2024 8:38 AM EDT 40 mg methocarbamol (Robaxin) tablet 500 mg 500 mg, Oral, 4 times daily, First dose on Mon11/06/24 at 0200, Until Discontinued, Routine Given 11/14/2024 1:54 PM EDT 500 mg Given 11/14/2024 8:56 AM EDT 500 mg Given 11/13/2024 8:33 PM EDT 500 mg metoprolol tartrate (Lopressor) tablet 100 mg 100 mg, Oral, 2 times daily, First dose on Mon11/06/24 at 0040, Until Discontinued, Routine Given 11/14/2024 8:56 AM EDT 100 mg Given 11/13/2024 8:32 PM EDT 100 mg Given 11/13/2024 8:38 AM EDT 100 mg metroNIDAZOLE (Flagyl) tablet 500 mg 500 mg, Oral, 3 times daily, First dose on Mon11/07/24 at 2000, Until Discontinued, Routine Given 11/12/2024 9:23 PM EDT 500 mg Given 11/12/2024 6:05 PM EDT 500 mg Given 11/12/2024 9:40 AM EDT 500 mg micafungin (Mycamine) 150 mg in sodium chloride 0.9 % 100 mL IVPB 150 mg, Intravenous, Every 24 hours, First dose (after last modification) on Mon11/13/24 at 0015, Until Discontinued, at 125 mL/hr, Administer over 60 Minutes, Routine New Bag 11/13/2024 11:28 PM EDT 150 mg 125 mL/hr New Bag 11/12/2024 11:26 PM EDT 150 mg 125 mL/hr mupirocin (Bactroban) 2 % ointment 1 Application Each Nostril, 2 times daily, 10 doses, First dose on Mon11/09/24 at 2100, Last dose on Mon11/14/24 at 0900, Routine Given 11/14/2024 8:56 AM EDT 1 Application Given 11/13/2024 8:32 PM EDT 1 Application Given 11/12/2024 9:25 PM EDT 1 Application NIFEdipine XL (Procardia XL) 24 hr tablet 30 mg 30 mg, Oral, Daily, First dose on Mon11/14/24 at 1015, Until Discontinued, Routine Given 11/14/2024 9:29 AM EDT 30 mg ondansetron (Zofran) 4 MG/5ML solution 4 mg 4 mg, Oral, Every 6 hours PRN, Starting on Mon11/06/24 at 0033, Until Mon11/14/24 at 1804, Routine, nausea, vomiting ondansetron (Zofran) injection 4 mg 4 mg, Intravenous, Every 6 hours PRN, Starting on Mon11/06/24 at 0033, Until Mon11/14/24 at 1804, Routine, vomiting, nausea ondansetron ODT (Zofran-ODT) disintegrating tablet 4 mg 4 mg, Oral, Every 6 hours PRN, Starting on Mon11/06/24 at 0033, Until Mon11/14/24 at 1804, Routine, nausea, vomiting oxyCODONE (Roxicodone) immediate release tablet 10 mg 10 mg, Oral, Every 6 hours PRN, Starting on Mon11/06/24 at 0051, Until Mon11/14/24 at 0922, Routine, severe pain Given 11/14/2024 12:18 AM EDT 10 mg Given 11/13/2024 1:53 PM EDT 10 mg Given 11/13/2024 8:36 AM EDT 10 mg oxyCODONE (Roxicodone) immediate release tablet 5 mg 5 mg, Oral, Every 6 hours PRN, Starting on Mon11/06/24 at 0051, Until Mon11/14/24 at 0922, Routine, moderate pain Given 11/09/2024 12:31 AM EDT 5 mg Given 11/07/2024 10:38 AM EDT 5 mg Given 11/07/2024 6:33 AM EDT 5 mg oxyCODONE (Roxicodone) immediate release tablet 5 mg 5 mg, Oral, Once, 1 dose, On Mon11/13/24 at 1615, Routine Given 11/13/2024 3:28 PM EDT 5 mg oxyCODONE (Roxicodone) immediate release tablet 5 mg 5 mg, Oral, Every 8 hours PRN, Starting on Mon11/14/24 at 0922, Until Mon11/14/24 at 1804, Routine, moderate pain, severe pain oxyCODONE (Roxicodone) immediate release tablet 5 mg 5 mg, Oral, 15 MIN PRIOR PROCEDURE, 1 dose, Starting on Mon11/14/24 at 1305, Until Mon11/14/24 at 1402, Routine Given 11/14/2024 2:02 PM EDT 5 mg piperacillin-tazobactam (Zosyn) 3.375 g in sodium chloride 0.9% 100 mL IVPB (vial adapter required) 3.375 g, Intravenous, Every 8 hours, First dose (after last modification) on Mon11/06/24 at 1600, Until Discontinued, Routine New Bag 11/07/2024 9:28 AM EDT 3.375 g 36.7 mL/hr New Bag 11/07/2024 12:06 AM EDT 3.375 g 36.7 mL/hr New Bag 11/06/2024 4:13 PM EDT 3.375 g 36.7 mL/hr piperacillin-tazobactam (Zosyn) 4.5 g in sodium chloride 0.9% 100 mL IVPB (vial adapter required) 4.5 g, Intravenous, Every 6 hours, First dose on Mon11/06/24 at 0130, Until Discontinued, Routine New Bag 11/06/2024 8:04 AM EDT 4.5 g 36. 7 mL/hr New Bag 11/06/2024 1:39 AM EDT 4.5 g 36.7 mL/hr piperacillin-tazobactam (Zosyn) 4.5 g in sodium chloride 0.9% 100 mL IVPB (vial adapter required) 4.5 g, Intravenous, Every 6 hours, First dose (after last modification) on [facility] 11/07/24 at 1400, Until Discontinued, Routine New Bag 11/07/2024 2:12 PM EDT 4.5 g 36.7 mL/hr Povidone-Iodine 5 % swab solution Apply externally, Once, 1 dose, On Mon11/06/24 at 1030, Routine Given 11/06/2024 9:57 AM EDT pravastatin (Pravachol) tablet 40 mg 40 mg, Oral, Nightly, First dose on Mon11/06/24 at 0200, Until Discontinued, Routine Given 11/13/2024 8:32 PM EDT 40 mg Given 11/12/2024 9:23 PM EDT 40 mg Given 11/11/2024 8:54 PM EDT 40 mg rivaroxaban (Xarelto) tablet 20 mg 20 mg, Oral, Daily with dinner, First dose on Mon11/08/24 at 1800, Until Discontinued, Routine Given 11/13/2024 5:53 PM EDT 20 mg Given 11/12/2024 6:05 PM EDT 20 mg Given 11/11/2024 6:05 PM EDT 20 mg rivaroxaban (Xarelto) tablet 20 mg 20 mg, Oral, Daily with lunch, 1 dose, First dose on Mon11/07/24 at 1200, Routine Given 11/07/2024 12:34 PM EDT 20 mg rOPINIRole (Requip) tablet 2 mg 2 mg, Oral, 2 times daily, First dose on Mon11/06/24 at 0200, Until Discontinued, Routine Given 11/14/2024 8:56 AM EDT 2 mg Given 11/13/2024 8:32 PM EDT 2 mg Given 11/13/2024 8:38 AM EDT 2 mg sodium chloride 0.9 % flush 10 mL 10 mL, Intravenous, Every 12 hours, First dose on Mon11/06/24 at 0040, Until Discontinued, Routine Given 11/14/2024 12:10 PM EDT 10 mL Given 11/13/2024 11:41 PM EDT 10 mL Given 11/13/2024 12:23 AM EDT 10 mL sodium chloride 0.9 % flush 10 mL 10 mL, Intravenous, As needed, Starting on Mon11/06/24 at 0031, Until [facility] 11/14/24 at 1804, Routine, line care sodium chloride 0.9 % flush 10 mL 10 mL, Intravenous, Every 12 hours, First dose on Mon11/06/24 at 0800, Until Discontinued, Routine, On Unit - Preprocedure Given 11/14/2024 8:56 AM EDT 10 mL Given 11/13/2024 8:32 PM EDT 10 mL Given 11/13/2024 8:40 AM EDT 10 mL sodium chloride 0.9 % flush 10 mL 10 mL, Intravenous, As needed, Starting on Mon11/06/24 at 0753, Until [facility] 11/14/24 at 1804, Routine, On Unit - Preprocedure, line care sodium chloride 0.9 % flush 10 mL 10 mL, Intravenous, Every 12 hours, First dose on [facility] 11/09/24 at 1515, Until Discontinued, Routine Given 11/14/2024 2:42 PM EDT 10 mL Given 11/14/2024 3:03 AM EDT 10 mL Given 11/13/2024 4:43 PM EDT 10 mL Sodium Hypochlorite (Dakin's (HALF-Strength)) external solution 1 Application Irrigation, Daily, First dose on Mon11/09/24 at 0945, Until Discontinued, Routine Given 11/11/2024 8:26 AM EDT 1 Application Given 11/10/2024 8:32 AM EDT 1 Application Given 11/09/2024 10:18 AM EDT 1 Application tamsulosin (Flomax) 24 hr capsule 0.4 mg 0.4 mg, Oral, Every evening, First dose on Mon11/06/24 at 1700, Until Discontinued, Routine Given 11/13/2024 5:53 PM EDT 0.4 mg Given 11/12/2024 6:05 PM EDT 0.4 mg Given 11/11/2024 4:33 PM EDT 0.4 mg Vancomycin HCl in NaCl (Vancocin) IVPB 1,000 mg 1,000 mg, Intravenous, Every 12 hours, First dose (after last modification) on Mon11/08/24 at 2000, Until Discontinued, at 250 mL/hr, Routine Given 11/13/2024 8:40 AM EDT 1,000 mg 250 mL/hr Given 11/12/2024 9:49 PM EDT 1,000 mg 250 mL/hr Given 11/12/2024 9:39 AM EDT 1,000 mg 250 mL/hr vancomycin in NS (Vancocin) IVPB 1,250 mg 1,250 mg, Intravenous, Every 12 hours, First dose on Mon11/06/24 at 0300, Until Discontinued, at 200 mL/hr, Routine New Bag 11/08/2024 5:20 AM EDT 1,250 mg 200 mL/hr New Bag 11/07/2024 5:57 PM EDT 1,250 mg 200 mL/hr New Bag 11/07/2024 6:26 AM EDT 1,250 mg 200 mL/hr documented in this encounter Active and Recently Administered Medications Times are shown in EDT. Scheduled Medication Order 11/12/2024 11/13/2024 11/14/2024 acetaminophen (Tylenol) tablet 1,000 mg 1,000 mg, Oral, Every 6 hours scheduled, First dose on Mon11/06/24 at 0200, Until Discontinued, Routine 0538 (Not Given - Provider: Jonathan Vale RN - Reason: Patient/family refused)1356 (Given - Provider: Devora Bo)1805 (Given - Provider: Devora Bo)2330 (Not Given - Provider: Jonathan Vale RN - Reason: Patient/family refused) 0531 (Not Given - Provider: Jonathan Vale RN - Reason: Patient/family refused)1317 (Given - Provider: Devora Bo)1753 (Given - Provider: Devora Bo)2331 (Not Given - Provider: Jonathan Vale RN - Reason: Patient/family refused) 0518 (Not Given - Provider: Jonathan Vale RN - Reason: Order parameters not met)1210 (Given - Provider: Yazmin Bhatt, CHRISTIAN)1800 (Canceled Entry - Provider: Automatic Discharge Provider - Comment: Automatically canceled at discontinue of medication order) aspirin chewable tablet 81 mg 81 mg, Oral, Daily, First dose on Mon11/08/24 at 0900, Until Discontinued, Routine 0938 (Given - Provider: Devora Bo) 0839 (Given - Provider: Devora Bo) 0856 (Given - Provider: Yazmin Bhatt RN) cefepime (Maxipime) 2 g in sodium chloride 0.9% 100 mL IVPB (vial adapter required) (CANCELED) 2 g, Intravenous, Every 8 hours, First dose on Mon11/07/24 at 1600, Until Discontinued, Routine 0021 (New Bag - Provider: Jonathan Vale RN)1356 (New Bag - Provider: Devora Bo)1805 (New Bag - Provider: Devora Bo) 0037 (New Bag - Provider: Jonathan Vale RN) ertapenem (INVanz) 1 g in sodium chloride 0.9% 100 mL IVPB (vial adapter required) 1 g, Intravenous, Every 24 hours, First dose on Mon11/13/24 at 0715, Until Discontinued, Routine 0839 (New Bag - Provider: Devora Bo) 0918 (Canceled Entry - Provider: Bianca Knight, PharmD - Comment: due at 0900)0930 (New Bag - Provider: Yazmin Bhatt RN) insulin glargine-yfgn 100 UNIT/ML injection 28 Units 28 Units, Subcutaneous, Nightly, First dose on Mon11/07/24 at 2100, Until Discontinued, Routine 2125 (Given - Provider: Jonathan Vale, CHRISTIAN) 2031 (Given - Provider: Jonathan Vale RN) insulin lispro (Admelog) 100 units/mL injection - Correction - Resistant Dose 0-10 Units, Subcutaneous, 3 times daily with meals, First dose on Mon11/07/24 at 0945, Until Discontinued, Routine 0917 (Not Given - Provider: Devora Kahn Bo - Reason: Order parameters not met - Comment: [phone] (Given - Provider: Devora Bo)1806 (Given - Provider: Devora Camarenab) 0839 (Given - Provider: Devora Bo)1226 (Not Given - Provider: Devora Bo - Reason: Order parameters not met - Comment: [phone] (Not Given - Provider: Devora Bo - Reason: Order parameters not met) 0856 (Given - Provider: Yazmin Bhatt RN)1210 (Given - Provider: Yazmin Bhatt RN)1730 (Canceled Entry - Provider: Automatic Discharge Provider - Comment: Automatically canceled at discontinue of medication order) insulin lispro (Admelog) injection - Correction - Nighttime Dose 0-3 Units, Subcutaneous, 2 times nightly (2100 & 0300), First dose on Mon11/07/24 at 2100, Until Discontinued, Routine 0222 (Not Given - Provider: Jonathan Vale RN - Reason: Order parameters not met)2125 (Not Given - Provider: Jonathan Vale RN - Reason: Order parameters not met) 0258 (Not Given - Provider: Jonathan Vlae RN - Reason: Order parameters not met)2100 (Given - Provider: Jonathan Vale, CHRISTIAN) 0413 (Not Given - Provider: Jonathan Vale RN - Reason: Order parameters not met) lactobacillus acidophilus (Floranex) tablet 1 tablet 1 tablet, Oral, 2 times daily with meals, First dose on Mon11/11/24 at 1730, Until Discontinued, Routine 0938 (Given - Provider: Devora Bo)1805 (Given - Provider: Devora Bo) 0838 (Given - Provider: Devora Bo)1753 (Given - Provider: Devora Bo) 0856 (Given - Provider: Yazmin Bhatt, CHRISTIAN)1730 (Canceled Entry - Provider: Automatic Discharge Provider - Comment: Automatically canceled at discontinue of medication order) lisinopril tablet 30 mg (CANCELED) 30 mg, Oral, Daily, First dose (after last modification) on Mon11/12/24 at 0900, Until Discontinued, Routine, Recovery(Phase II-Outpatient)/On Unit(Inpatient) 0938 (Given - Provider: Devora Bo) lisinopril tablet 40 mg 40 mg, Oral, Daily, First dose (after last modification) on Mon11/13/24 at 0930, Until Discontinued, Routine, Recovery(Phase II-Outpatient)/On Unit(Inpatient) 0838 (Given - Provider: Devora Bo) 0856 (Given - Provider: Yazmin Bhatt RN) methocarbamol (Robaxin) tablet 500 mg 500 mg, Oral, 4 times daily, First dose on Mon11/06/24 at 0200, Until Discontinued, Routine 0938 (Given - Provider: Devora Bo)1356 (Given - Provider: Devora Bo)1805 (Given - Provider: Devora Bo)2123 (Given - Provider: Jonathan Vale RN) 0838 (Given - Provider: Devora Bo)1317 (Given - Provider: Devora Bo)1753 (Given - Provider: Devora Bo)2033 (Given - Provider: Jonathan Vale RN) 0856 (Given - Provider: Yazmin Bhatt RN)1354 (Given - Provider: Yazmin Bhatt RN)1800 (Canceled Entry - Provider: Automatic Discharge Provider - Comment: Automatically canceled at discontinue of medication order) metoprolol tartrate (Lopressor) tablet 100 mg 100 mg, Oral, 2 times daily, First dose on Mon11/06/24 at 0040, Until Discontinued, Routine 0938 (Given - Provider: Devora Bo)2123 (Given - Provider: Jonathan Vale RN) 0838 (Given - Provider: Devora Bo)2031 (Given - Provider: Jonathan Vale RN) 0856 (Given - Provider: Yazmin Bhatt RN) metroNIDAZOLE (Flagyl) tablet 500 mg (CANCELED) 500 mg, Oral, 3 times daily, First dose on [facility] 11/07/24 at 2000, Until Discontinued, Routine 0940 (Given - Provider: Devora Bo)1804 (Given - Provider: Devora Bo)2122 (Given - Provider: Jonathan Vale RN) micafungin (Mycamine) 150 mg in sodium chloride 0.9 % 100 mL IVPB 150 mg, Intravenous, Every 24 hours, First dose (after last modification) on Mon11/13/24 at 0015, Until Discontinued, at 125 mL/hr, Administer over 60 Minutes, Routine 232 (New Bag - Provider: Jonathan Vale RN) 232 (New Bag - Provider: Jonathan Vale RN) mupirocin (Bactroban) 2 % ointment 1 Application Each Nostril, 2 times daily, 10 doses, First dose on Mon11/09/24 at 2100, Last dose on Mon11/14/24 at 0900, Routine 0940 (Given - Provider: Devora Bo)2124 (Given - Provider: Jonathan Vale RN) 0840 (Not Given - Provider: Devora Bo - Reason: Patient/family refused)2031 (Given - Provider: Jonathan Vale RN) 0856 (Given - Provider: Yazmin Bhatt RN) NIFEdipine XL (Procardia XL) 24 hr tablet 30 mg 30 mg, Oral, Daily, First dose on Mon11/14/24 at 1015, Until Discontinued, Routine 0929 (Given - Provid er: Yazmin Bhatt RN) oxyCODONE (Roxicodone) immediate release tablet 5 mg (COMPLETED) 5 mg, Oral, Once, 1 dose, On Mon11/13/24 at 1615, Routine 1528 (Given - Provider: Devora Bo) oxyCODONE (Roxicodone) immediate release tablet 5 mg (COMPLETED) 5 mg, Oral, 15 MIN PRIOR PROCEDURE, 1 dose, Starting on [facility] 11/14/24 at 1305, Until Mon11/14/24 at 1402, Routine 1402 (Given - Provid er: Yazmin Bhatt RN) Povidone-Iodine 5 % swab solution 1 Application Nasal, Once, 1 dose, On Mon11/06/24 at 0800, Routine pravastatin (Pravachol) tablet 40 mg 40 mg, Oral, Nightly, First dose on Mon11/06/24 at 0200, Until Discontinued, Routine 2122 (Given - Provider: Jonathan Vale RN) 2031 (Given - Provider: Jonathan Vale RN) rivaroxaban (Xarelto) tablet 20 mg 20 mg, Oral, Daily with dinner, First dose on Mon11/08/24 at 1800, Until Discontinued, Routine 1805 (Given - Provider: Devora Bo) 1753 (Given - Provider: Devora Bo) 1800 (Canceled Entry - Provider: Automatic Discharge Provider - Comment: Automatically canceled at discontinue of medication order) rOPINIRole (Requip) tablet 2 mg 2 mg, Oral, 2 times daily, First dose on Mon11/06/24 at 0200, Until Discontinued, Routine 0938 (Given - Provider: Devora Bo)212 (Given - Provider: Jonathan Vale RN) 0838 (Given - Provider: Devora Bo)2031 (Given - Provider: Jonathan Vale RN) 0856 (Given - Provider: Yazmin Bhatt RN) sodium chloride 0.9 % flush 10 mL(Linked Group 1) 10 mL, Intravenous, Every 12 hours, First dose on Mon11/06/24 at 0040, Until Discontinued, Routine 1332 (Given - Provider: Devora Bo) 0023 (Given - Provider: Jonathan Vale RN)1156 (Not Given - Provider: Devora Bo - Reason: Hold for condition: must add comment - Comment: infusing)2341 (Given - Provider: Jonathan Vale RN) 1210 (Given - Provider: Yazmin Bhatt RN) sodium chloride 0.9 % flush 10 mL(Linked Group 2) 10 mL, Intravenous, Every 12 hours, First dose on Mon11/06/24 at 0800, Until Discontinued, Routine, On Unit - Preprocedure 0939 (Given - Provider: Devora Bo)2126 (Given - Provider: Jonathan Vale RN) 0840 (Given - Provider: Devora Bo)2032 (Given - Provider: Jonathan Vale, CHRISTIAN) 0856 (Given - Provider: Yazmin Bhatt, CHRISTIAN) sodium chloride 0.9 % flush 10 mL 10 mL, Intravenous, Every 12 hours, First dose on Mon11/09/24 at 1515, Until Discontinued, Routine 0222 (Given - Provider: Jonathan Vale RN)1750 (Given - Provider: Devora Bo) 0258 (Given - Provider: Jonathan Vale RN)1643 (Given - Provider: Devora Bo) 0303 (Given - Provider: Jonathan Vale RN)1442 (Given - Provider: Yazmin Bhatt, CHRISTIAN) Sodium Hypochlorite (Dakin's (HALF-Strength)) external solution 1 Application Irrigation, Daily, First dose on Mon11/09/24 at 0945, Until Discontinued, Routine 0939 (Not Given - Provider: Devora Bo - Reason: Hold for condition: must add comment - Comment: wound vac) 0840 (Not Given - Provider: Devora Bo - Reason: Hold for condition: must add comment - Comment: wound vac) 0903 (Not Given - Provider: Yazmin Bhatt RN - Reason: Hold for condition: must add comment - Comment: pt now has wound vac) tamsulosin (Flomax) 24 hr capsule 0.4 mg 0.4 mg, Oral, Every evening, First dose on Mon11/06/24 at 1700, Until Discontinued, Routine 1805 (Given - Provider: Devora Bo) 1753 (Given - Provider: Devora Bo) 1700 (Canceled Entry - Provider: Automatic Discharge Provider - Comment: Automatically canceled at discontinue of medication order) Vancomycin HCl in NaCl (Vancocin) IVPB 1,000 mg (CANCELED) 1,000 mg, Intravenous, Every 12 hours, First dose (after last modification) on Mon11/08/24 at 2000, Until Discontinued, at 250 mL/hr, Routine 0939 (Given - Provider: Devora Bo)9 (Given - Provider: Jonathan Vale RN - Comment: previous antibiotic not finished) 0840 (Given - Provider: Devora Bo) PRN Medication Order 11/12/2024 11/13/2024 11/14/2024 dextrose 10 % (D10W) bolus 125 mL(Linked Group 3) 125 mL, Intravenous, Every 15 min PRN, Starting on [facility] 11/07/24 at 0854, Until [facility] 11/14/24 at 1804, Administer over 15 Minutes, Routine, low blood sugar BG 51-89 mg/dL dextrose 10 % (D10W) bolus 250 mL(Linked Group 3) 250 mL, Intravenous, Every 15 min PRN, Starting on Mon11/07/24 at 0854, Until [facility] 11/14/24 at 1804, Administer over 15 Minutes, Routine, PRN low blood sugar BG =/<50 mg/dL glucagon (human recombinant) injection 1 mg(Linked Group 3) 1 mg, Intramuscular, Every 15 min PRN, Starting on Mon11/07/24 at 0854, Until [facility] 11/14/24 at 1804, Routine, low blood sugar per Hypoglycemia Prevention and Treatment protocol glucose (Glutose) 40 % oral gel 15-30 grams of glucose(Linked Group 3) 15-30 grams of glucose, Sublingual, Every 15 min PRN, Starting on Mon11/07/24 at 0854, Until [facility] 11/14/24 at 1804, Routine, low blood sugar, per Hypoglycemia Prevention and Treatment protocol ondansetron (Zofran) 4 MG/5ML solution 4 mg(Linked Group 4) 4 mg, Oral, Every 6 hours PRN, Starting on Mon11/06/24 at 0033, Until Mon11/14/24 at 1804, Routine, nausea, vomiting ondansetron (Zofran) injection 4 mg(Linked Group 4) 4 mg, Intravenous, Every 6 hours PRN, Starting on Mon11/06/24 at 0033, Until [facility] 11/14/24 at 1804, Routine, vomiting, nausea ondansetron ODT (Zofran-ODT) disintegrating tablet 4 mg(Linked Group 4) 4 mg, Oral, Every 6 hours PRN, Starting on Mon11/06/24 at 0033, Until Mon11/14/24 at 1804, Routine, nausea, vomiting oxyCODONE (Roxicodone) immediate release tablet 10 mg (CANCELED) 10 mg, Oral, Every 6 hours PRN, Starting on Mon11/06/24 at 0051, Until Mon11/14/24 at 0922, Routine, severe pain 0836 (Given - Provider: Devora Bo)1353 (Given - Provider: Devora Bo) 0018 (Given - Provider: Jonathan Vale, CHRISTIAN) oxyCODONE (Roxicodone) immediate release tablet 5 mg(Linked Group 5) 5 mg, Oral, Every 8 hours PRN, Starting on Mon11/14/24 at 0922, Until Mon11/14/24 at 1804, Routine, moderate pain, severe pain 1441 (Not Given - Provider: Yazmin Bhatt RN - Reason: Hold for condition: must add comment - Comment: gave other oxycodone that was PRN.) sodium chloride 0.9 % flush 10 mL(Linked Group 1) 10 mL, Intravenous, As needed, Starting on Mon11/06/24 at 0031, Until Mon11/14/24 at 1804, Routine, line care sodium chloride 0.9 % flush 10 mL(Linked Group 2) 10 mL, Intravenous, As needed, Starting on Mon11/06/24 at 0753, Until Mon11/14/24 at 1804, Routine, On Unit - Preprocedure, line care Linked Groups Order Group 1: Insert peripheral IV (COMPLETED) Once, On Mon11/06/24 at 0032, For 1 occurrence And Saline lock IV (COMPLETED) Once, On Mon11/06/24 at 0032, For 1 occurrence And sodium chloride 0.9 % flush 10 mLJump to med 10 mL, Intravenous, Every 12 hours, First dose on Mon11/06/24 at 0040, Until Discontinued, Routine And sodium chloride 0.9 % flush 10 mLJump to med 10 mL, Intravenous, As needed, Starting on Mon11/06/24 at 0031, Until Mon11/14/24 at 1804, Routine, line care Group 2: Insert peripheral IV (COMPLETED) Once, On Mon11/06/24 at 0754, For 1 occurrence, On Unit - Preprocedure And Saline lock IV (COMPLETED) Once, On Mon11/06/24 at 0754, For 1 occurrence, On Unit - Preprocedure And sodium chloride 0.9 % flush 10 mLJump to med 10 mL, Intravenous, Every 12 hours, First dose on Mon11/06/24 at 0800, Until Discontinued, Routine, On Unit - Preprocedure And sodium chloride 0.9 % flush 10 mLJump to med 10 mL, Intravenous, As needed, Starting on Mon11/06/24 at 0753, Until Mon11/14/24 at 1804, Routine, On Unit - Preprocedure, line care Group 3: glucose (Glutose) 40 % oral gel 15-30 grams of glucoseJump to med 15-30 grams of glucose, Sublingual, Every 15 min PRN, Starting on Mon11/07/24 at 0854, Until Mon11/14/24 at 1804, Routine, low blood sugar, per Hypoglycemia Prevention and Treatment protocol Or dextrose 10 % (D10W) bolus 125 mLJump to med 125 mL, Intravenous, Every 15 min PRN, Starting on Mon11/07/24 at 0854, Until Mon11/14/24 at 1804, Administer over 15 Minutes, Routine, low blood sugar BG 51-89 mg/dL Or dextrose 10 % (D10W) bolus 250 mLJump to med 250 mL, Intravenous, Every 15 min PRN, Starting on Mon11/07/24 at 0854, Until Mon11/14/24 at 1804, Administer over 15 Minutes, Routine, PRN low blood sugar BG =/<50 mg/dL Or glucagon (human recombinant) injection 1 mgJump to med 1 mg, Intramuscular, Every 15 min PRN, Starting on Mon11/07/24 at 0854, Until Mon11/14/24 at 1804, Routine, low blood sugar per Hypoglycemia Prevention and Treatment protocol Group 4: ondansetron ODT (Zofran-ODT) disintegrating tablet 4 mgJump to med 4 mg, Oral, Every 6 hours PRN, Starting on Mon11/06/24 at 0033, Until [facility] 11/14/24 at 1804, Routine, nausea, vomiting Or ondansetron (Zofran) injection 4 mgJump to med 4 mg, Intravenous, Every 6 hours PRN, Starting on Mon11/06/24 at 0033, Until [facility] 11/14/24 at 1804, Routine, vomiting, nausea Or ondansetron (Zofran) 4 MG/5ML solution 4 mgJump to med 4 mg, Oral, Every 6 hours PRN, Starting on Mon11/06/24 at 0033, Until Mon11/14/24 at 1804, Routine, nausea, vomiting Group 5: oxyCODONE (Roxicodone) immediate release tablet 5 mgJump to med 5 mg, Oral, Every 8 hours PRN, Starting on Mon11/14/24 at 0922, Until Mon11/14/24 at 1804, Routine, moderate pain, severe pain documented in this encounter Additional Health Concerns Active Problems Noted Date Diagnosed Date Autogenerated Problem 09/23/2024 Infection Onset Date Last Indicated Resolved Time Gastrointestinal Rule-Out 11/11/2024 11/12/2024 1:00 PM EDT C. difficile Rule-Out 11/11/2024 11/12/20242024 11:54 AM EDT Assessment Noted Time A Body Mass Index follow-up plan has been documented for the patient 11/14/2024 3:04 PM EDT documented as of this encounter Care Teams [employer] Relationship Specialty Start Date End Date Asad Victor MD [address] [place] [address] PCP - General 10/07/22 documented as of this encounter
--- OUTSIDE RECORDS SUMMARY | 2024-11-06 10:08 | XMS_ITS | Encounter Summary ---
Author Organization Healthcare Address [address] [place] [address] Care Team Providers Care Consulting Sme Name Role Phone Asad Victor MD Primary Care Provider + [phone] Reason for Visit * Reason Comments Post-op Problem Wound Check * Auth/Cert (Routine) Specialty Diagnoses / Procedures Referred By Contac t Referred To Contact Diagnoses Wound infection Post-op Vasc Sx wounds - sx on 10/17 at Nathaly Nowak MD [address] [address] Phone: tel: fax: [facility] Emergency Department [address] [place] [address] Phone: tel: Referral ID Status Reason Start Date Expiration Date Visits Re quested Visits Authorized [id number] 1 1 Encounter Details Date Type Department Care Team (Late st Contact Info) Description 11/06/2024 10:08 AM EDT - 11/06/2024 11:38 AM EDT Surgery [facility] OPERATING ROOM [address] [place] [address] Nathaly Nowak MD [id number] [place] [address] Left groin exploration and washout, [...] living in a chcf (including now)? No 11/07/2024 CAGE ASSESSMENT Answer [...] first t dino in the morning (EYE-CHOIR MEMBER) to steady your nerves or to get rid of a hangover? 0 10/18/2021 CAGE Questionnaire Score 0 022 Utilities Answer Date Recorded In the past 12 months has [employer], gas, oil, or water [employer] threatened to shut off services in your [...] Carmona with any questions or concerns at [phone]. It is important that you get your [...] PM EDT Case Management Discharge Note Bev Bojra 64 y.o. male CSN: [id number] Admission: 11/05/2024 9:45 PM Primary Problem: Wound infection Primary Primary Counselor: Primary Caregiver: Self Assistance Available at Discharge: [...] 30 days Follow-up: [facility] [address] [facility] [address] Go to Infusion Clinic. Please arrive at 11 am daily. [facility] [address] Go to Wound care clinic. First appointment is 1:10 pm. Please call [phone] with scheduling concerns. Discharge Transportation: Transportation Anticipated: medical transport Transportation Home at Discharge: Medical Transport Follow Up Transport: Transportation Needed to Follow up Appoinments: Medical Transport Additional Comments: Patient discharging home. No other SW needs identified. Mariia Monterroso TANNING WHEEL OPERATOR * Discharge Summary - Melecio Echevarria DO - 11/14/2024 12:46 PM EDT Hospitalization Admit Date/Time: 11/05/2024 9:45 PM Admitting Attending: Nathaly Nowak Discharge Date: 11/14/2024 Discharge Attending Physician: Nathaly Nowak MD PCP name and Address: Asad Victor MD (Inactive) [address] [place] [address] / [address] [address] Referring provider name and address: Wade Cowart, DO [address] [place] [address] Chief Concern, Brief History of Present Illness, and Hospital Course Mr. Borja is a 64 y/o male that presented to [facility] on 11/06/2024 for surgical wound [...] Your Medications [facility] - GLENDA Solorzano - [address], [place] [address] ertapenem injection micafungin injection Discharge Diagnosis Medical [...] Provider Department Center 11/26/2024 2:00 PM [facility] 11/26/2024 2:30 PM [facility] 11/26/2024 3:20 PM [facility] 11/29/2024 2:30 PM Oscar Appiah MD [id number] Mason Test Results Pending At Discharge Pending Labs [...] a 64 y/o male that presented to [facility] on 11/06/2024 for surgical wound [...] portions of the procedure(s) and immediately available [facility] services the entire duration. See resident note for details. * Progress Notes - Mariia Monterroso - 11/13/2024 1:57 PM EDT Case Management Adult Progress Note Bev Borja 64 y.o. male CSN: [id number] Admission: 11/05/2024 9:45 PM Primary Problem: Wound infection Wound vac to be delivered today by at bedside. SW sent referral/orders to [facility] wound care center (fax [phone]) and infusion clinic (fax [phone]). Plan to discharge tomorrow. SW will continue to follow. Mariia Monterroso TANNING WHEEL OPERATOR * Progress Notes - Bianca Knight PharmD - 11/13/2024 12:55 PM EDT Vancomycin therapy has been stopped per ID recommendation. Pharmacist will sign off from dosing and monitoring vancomycin. Please re- consult a pharmacist if more vancomycin is indicated. Bianca Knight PharmD, [facility] * Progress Notes - Ailin Levy [...] Lumen PICC Antimicrobial Regimen: IV Ertapenem 1g [id number] start date:11/06/2024 Projected End date:12/18/2024 IV Micafungin 150mg [id number] Start date: 11/12/2024 Projected End Date: 12/24/2024 [...] OPAT Team Attn: Dr Kraus Fax #: [phone] Appointments: (Dr Appiah 08/02/2024 at 2.30pm) at: [facility]: [address] [place] [address] (Select Option 3 for IV Antibiotic / PICC line related issues) For questions regarding OPAT prior to discharge, reach out to the OPAT team via [employer] Secure Chat (Group: OPAT Referral Team). For all questions regarding OPAT after discharge should be directed to the OPAT Team at (Select Option 3 for IV Antibiotics/PICC Issues) between 8am-5pm. After 5 pm, or during weekends/ holidays, please call the paging welding pantograph operator at to reach the on-call ID [...] [facility] Department of Surgery Division of Vascular Surgery Surgery Progress Note 11/13/24 Bev Borja Subjective Subjective: HPI 64yoM PMHx COPD, T2DM, HLD, HTN, RLS, CAD s/p PCI (on Xarelto) s/p pacemaker c/b left SANDIP pseudoaneurysm s/p thrombin injection 09/21/24, CLI s/p left femoral endarterectomy with EIA/LIQUEFACTION AND REGASIFICATION HELPER stenting 10/17/24, who presented to [facility] 11/05/2024 with wound infection. [...] 09/21/24, CLI s/p left femoral endarterectomy with EIA/LIQUEFACTION AND REGASIFICATION HELPER stenting 10/17/24, who presented to [facility] 11/05/2024 with wound infection. [...] the findings. Cardiac Device Check - PRE-OR [facility] EP-Device Clinic: Pre-operative CIED Report Assessment and Sara-Procedural Reommendations: Name: Bev Borja Date: 10/17/2024 : 1960 Age: 64 y.o. Patient has a Face Burler: Berger ICE SELLER-PM Remaining battery longevity adequate. Lead integrity test [...] recommendations. Supporting reports can be found in Entitle media file. Micro: Susceptibility data from last [...] Units Date/Time Tissue Culture and Gram Stain [[id number]] (Abnormal) (Susceptibility) Collected: 11/06/24 1134 Order Status: Completed Specimen: Tissue from Other (specify site) Updated: 11/12/24 1334 Culture Moderate Growth 2+ Enterobacter cloacae complex Comment: This isolate has been identified using the FDA Approved [employer] [place] System The organism value for this result has been updated. These results have been appended to the previously preliminary verified report. Edited result: Previously reported as Gram Negative Jesus on 11/07/2024 at 1434 EDT. 2+ Streptococcus mitis/oralis group Comment: This isolate has been identified using the FDA Approved [employer] System The organism value for this result has been updated. These results have been appended to the previously preliminary verified report. 2+ Pasteurella stomatis Comment: This result was determined by MALDI tof mass spectrometry using the [employer] database and is for research use only. [...] stewardship team. Comprehensive GI Panel by PCR [[id number]] (Normal) Collected: 11/12/24 0950 Order Status: Completed [...] if clinically indicated. Clostridiodes (Clostridium) difficile PCR [[id number]] (Normal) Collected: 11/12/24 0950 Order Status: Completed [...] high complexity clinical laboratory testing. 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 These results have been appended to the previously preliminary verified report. Edited result: Previously reported as Yeast on 11/11/2024 at 1317 EDT. ISIDRO No fungal elements seen Additional Susceptibilities and/or Identification [[id number]] Collected: 11/11/24 1240 Order Status: Completed Specimen: Tissue from Wound (specify site): Additional Susceptibilities and/or Identification [[id number]] Collected: 11/11/24 1238 Order Status: Completed Specimen: Tissue from Wound (specify site): Additional Susceptibilities and/or Identification [[id number]] Collected: 11/11/24 1237 Order Status: Completed Specimen: Tissue from Wound (specify site): AFB Culture, Non Respiratory Source and Acid Fast Stain [[id number]] Collected: 11/06/24 1134 Order Status: Completed Specimen: Tissue from Other (specify site) Updated: 11/11/24 0938 AFB Culture No Mycobacterial Growth <1 Week Acid Fast Stain No acid fast bacilli seen Blood Culture (Aerobic/Anaerobet Set) [[id number]] Collected: 11/06/24106 Order Status: Completed Specimen: Blood from AC, Left Updated: 11/11/24 0301 Culture No growth at day 5 Blood Culture (Aerobic/Anaerobet Set) [[id number]] Collected: 11/06/24106 Order Status: Completed Specimen: Blood [...] [facility]. [facility] [...] to stay a facility, plan for [facility] daily IV abx. Plan for [...] 1,000 mg 1,000 mg Oral q6h [facility] Anthony Reyes MD 1,000 mg at 11/12/24 [...] Prevent or Manage Pain Flowsheets (Taken 11/11/2024 2765 by Jonathan Vale RN) Sensory Stimulation Regulation: care clustered lighting decreased quiet environment promoted Medication Review/Management: medications reviewed * Consults - Anabel Ovalle RD - 11/12/2024 9:59 AM EDT Adult Nutrition Evaluation Note Bev Borja 64 y.o. male CSN: [id number] Room/Bed 682/682B Nutrition evaluation type: assessment Reason for evaluation: LOS Hospital course: 64 y.o. male with PMHx significant for COPD, CAD s/p PCI (on Xarelto) s/p pacemaker c/b left SANDIP pseudoaneurysm s/p thrombin injection 09/21/24, chronic limb ischemia s/p left femoralendarterectomy with external iliac/common femoral artery stenting 10/17/24, T2DM, HLD, HTN, RLS who presented to the [facility] on 11/05/2024 with problems with his wounds. [...] (Room air) O2 Delivery Method: Face tent Hardin Coma Scale Score: 15 Loi Scale Score: [...] (194 lb 3.6 oz) BMI (Calculated): 30.41 Turner Body Weight (kg): 67.3 Percent Turner Body Weight: 131 Adjusted Body Weight (kg): [...] oz) Estimated Needs: Kcal/ K-30 Kcal Provided: 9860-8727 Kcal Needs Based On: Adjusted weight Gm Protein/ Kg : 1.2-1.5 Protein Provided: 87-108 Protein Needs Based On: Adjusted weight Metabolic Cart Study Results: Current Nutrition Intake: Diet Order: Adult Diet Diet Texture: Regular Adult Carbohydrate Restriction: Consistent CHO 1 (6550-4506 Jatinder, 65 g/meal) Percent Meals Eaten (%): avg 63% x 6 emals Diet Experience and Nutrition History: Diet Education Provided: Will monitor Pertinent home medications: clopidogrel, docusate sodium, Lantus, Humalog, lisinopril, metoprolol tartrate, pravastatin, rivaroxaban, ropinirole, tamsulosin Protestant needs: Nutrition Focused Physical Exam: Physical exam [...] ENDARTERECTOMY N/A 2017 Endarterectomy Carotid Artery from [employer] CORONARY ANGIOPLASTY Left Coronary Angiography With Concomitant Left Heart Catheterization from [employer] CORONARY ARTERY BYPASS GRAFT N/A 2018 3V ELBOW SURGERY Right ENDARTERECTOMY Left 10/17/2024 common/SFA/Profunda thromboendarterectomy, EIA/LIQUEFACTION AND REGASIFICATION HELPER stent HERNIA REPAIR KNEE ARTHROSCOPY Left VASCULAR SURGERY Left 09/21/2024 LIQUEFACTION AND REGASIFICATION HELPER pseudoaneurym injection [3] Social History Tobacco Use [...] from the original note were not included. [facility] Department of Surgery Division of Vascular Surgery Surgery Progress Note 11/12/24 Bev Perez Cristoferkeo Subjective Subjective: HPI 64yoM PMHx COPD, T2DM, HLD, HTN, RLS, CAD s/p PCI (on Xarelto) s/p pacemaker c/b left SANDIP pseudoaneurysm s/p thrombin injection 09/21/24, CLI s/p left femoral endarterectomy with EIA/LIQUEFACTION AND REGASIFICATION HELPER stenting 10/17/24, who presented to [facility] 11/05/2024 with wound infection. [...] 09/21/24, CLI s/p left femoral endarterectomy with EIA/LIQUEFACTION AND REGASIFICATION HELPER stenting 10/17/24, who presented to [facility] 11/05/2024 with wound infection. [...] the findings. Cardiac Device Check - PRE-OR [facility] EP-Device Clinic: Pre-operative CIED Report Assessment and Sara-Procedural Reommendations: Name: Bev Borja Date: 10/17/2024 : 1960 Age: 64 y.o. 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 Lead integrity test [...] recommendations. Supporting reports can be found in Entitle media file. Micro: Susceptibility data from last [...] Units Date/Time Tissue Culture and Gram Stain [[id number]] (Abnormal) (Susceptibility) Collected: 11/06/24 1134 Order Status: Completed Specimen: Tissue from Other (specify site) Updated: 11/12/24 1334 Culture Moderate Growth 2+ Enterobacter cloacae complex Comment: This isolate has been identified using the FDA Approved [employer] CA System The organism value for this result has been updated. These results have been appended to the previously preliminary verified report. Edited result: Previously reported as Gram Negative Jesus on 11/07/2024 at 1434 EDT. 2+ Streptococcus mitis/oralis group Comment: This isolate has been identified using the FDA Approved [employer] CA System The organism value for this result has been updated. These results have been appended to the previously preliminary verified report. 2+ Pasteurella stomatis Comment: This result was determined by MALDI tof mass spectrometry using the [employer] database and is for research use only. [...] stewardship team. Comprehensive GI Panel by PCR [[id number]] (Normal) Collected: 11/12/24 0950 Order Status: Completed [...] if clinically indicated. Clostridiodes (Clostridium) difficile PCR [[id number]] (Normal) Collected: 11/12/24 0950 Order Status: Completed [...] high complexity clinical laboratory testing. Anaerobic Culture [[id number]] Collected: 11/06/24 1128 Order Status: Completed Specimen: Swab from Other (specify site) Updated: 11/12/24 1118 Culture No growth at day 4 Fungal Culture, Tissue and ISIDRO [[id number]] (Abnormal) Collected: 11/06/24 1134 Order Status: Completed Specimen: Tissue from Other (specify site) Updated: 11/12/24 1033 Culture Reading Mycological 4 Weeks Rare [place] Sana parapsilosis Comment: This isolate has been identified using the FDA Approved [employer] [place] System The organism value for this result has been updated. These results have been appended to the previously preliminary verified report. Edited result: Previously reported as Yeast on 11/11/2024 at 1317 EDT. ISIDRO No fungal elements seen Additional Susceptibilities and/or Identification [[id number]] Collected: 11/11/24 1240 Order Status: Completed Specimen: Tissue from Wound (specify site): Additional Susceptibilities and/or Identification [[id number]] Collected: 11/11/24 1238 Order Status: Completed Specimen: Tissue from Wound (specify site): Additional Susceptibilities and/or Identification [[id number]] Collected: 11/11/24 1237 Order Status: Completed Specimen: Tissue from Wound (specify site): AFB Culture, Non Respiratory Source and Acid Fast Stain [[id number]] Collected: 11/06/24 1134 Order Status: Completed Specimen: Tissue from Other (specify site) Updated: 11/11/24 0938 AFB Culture No Mycobacterial Growth <1 Week Acid Fast Stain No acid fast bacilli seen Blood Culture (Aerobic/Anaerobet Set) [[id number]] Collected: 11/06/24106 Order Status: Completed Specimen: Blood from AC, Left Updated: 11/11/24 0301 Culture No growth at day 5 Blood Culture (Aerobic/Anaerobet Set) [[id number]] Collected: 11/06/24106 Order Status: Completed Specimen: Blood [...] OSH. On 11/06, pt went to the [facility] vascular surgery for left groin [...] want to stay a facility[facility]x. Plan for [...] 1,000 mg 1,000 mg Oral q6h [facility] Anthony Reyes MD 1,000 mg at 11/12/24 1356 aspirin chewable tablet 81 mg 81 mg Oral Daily Reid Daniels MD 81 mg at 11/12/24 0938 cefepime (Maxipime) 2 g in sodium chloride 0.9% 100 mL IVPB (vial adapter required) 2 g [id number] Reid Daniels MD 36.7 mL/hr at 11/12/24 [...] 28 Units Subcutaneous Nightly Reid Daniels MD 28 Units at 11/11/242054 insulin lispro (Admelog) 100 units/mL [...] PM Anthony Reyes MD 0.4 mg at 240266 Vancomycin HCl in NaCl (Vancocin) IVPB 1,000 [...] send him home on micafungin as Rare [place] Sana parapsilosis grew and we do not [...] Glucose Level Within Target Range 11/11/20242347 by Jonatahn Vale RN Outcome: Ongoing, Progressing 11/11/20242336 by [...] portions of the procedure(s) and immediately available [facility] services the entire duration. See resident note for details. * Progress Notes - Mariia Monterroso - 11/11/2024 1:10 PM EDT Case Management Adult Progress Note Bev Borja 64 y.o. male CSN: [id number] Admission: 11/05/2024 9:45 PM Primary Problem: Wound infection Patient refusing inpatient placement for IV abx. [facility] infusion clinic can provide treatment. Face sheet, IV abx orders, and order for PICC care/labs/dressing changes need to be faxed to [phone]. Voicemail left with wound care clinic. Wound vac approved per , delivery pending. Crysll continue to follow. Mariia Monterroso TANNING WHEEL OPERATOR * Progress Notes - Dotty Sethi [...] the findings. Cardiac Device Check - PRE-OR [facility] EP-Device Clinic: Pre-operative CIED Report Assessment and Sara-Procedural Reommendations: Name: Bev Borja Date: 10/17/2024 : 1960 Age: 64 y.o. Patient has a Face Burler: Berger ICE SELLER-PM Remaining battery longevity adequate. Lead integrity test [...] recommendations. Supporting reports can be found in Entitle media file. Micro: Susceptibility data from last [...] Non Respiratory Source and Acid Fast Stain [[id number]] Collected: 11/06/24 1134 Order Status: Completed Specimen: Tissue from Other (specify site) Updated: 11/11/24 0938 AFB Culture No Mycobacterial Growth <1 Week Acid Fast Stain No acid fast bacilli seen Blood Culture (Aerobic/Anaerobet Set) [[id number]] Collected: 11/06/24106 Order Status: Completed Specimen: Blood from AC, Left Updated: 11/11/24 0301 Culture No growth at day 5 Blood Culture (Aerobic/Anaerobet Set) [[id number]] Collected: 11/06/24 010 Order Status: Completed Specimen: Blood from Hand, Right Updated: 11/11/24 0249 Culture No growth at day 5 Anaerobic Culture [[id number]] Collected: 11/06/24 1128 Order Status: Completed Specimen: Swab from Other (specify site) Updated: 11/10/24 1441 Culture No growth at day 4 Routine Culture and Gram Stain [[id number]] Collected: 11/06/24 1128 Order Status: Completed Specimen: Swab from Other (specify site) Updated: 11/10/24 1124 Culture No growth at day 4 Gram Stain Result No organisms seen No polymorphonuclear leukocytes seen Anaerobic Culture [[id number]] (Abnormal) Collected: 11/06/24 112 Order Status: Completed Specimen: Swab from Other (specify site) Updated: 11/10/24 0718 Culture No anaerobes isolated Mixed skin clifton Comment: The organism value for this result has been updated. These results have been appended to the previously preliminary verified report. Narrative: Mixed Skin [place] includes Streptococcus mitis/oralis group and Staphylococcus Pseudintermedius Anaerobic Culture [[id number]] (Abnormal) Collected: 11/06/24 1134 Order Status: Completed Specimen: Tissue from Other (specify site) Updated: 11/10/24 07 Culture No anaerobes isolated Mixed skin clifton [...] OSH. On 11/06, pt went to the [facility] vascular surgery for left groin [...] mL IVPB (vial adapter required) 2 g [id number] Reid Daniels MD 36.7 mL/hr at 11/11/24 [...] mL 250 mL Intravenous q15 min PRN Redi Daniels MD Or glucagon (human recombinant) injection [...] PM Anthony Reyes MD 0.4 mg at 989258 Vancomycin HCl in NaCl (Vancocin) IVPB 1,000 [...] from the original note were not included. [facility] Department of Surgery Division of Vascular Surgery Surgery Progress Note 11/11/24 Bev Borja Subjective Subjective: HPI 64yoM PMHx COPD, T2DM, HLD, HTN, RLS, CAD s/p PCI (on Xarelto) s/p pacemaker c/b left SANDIP pseudoaneurysm s/p thrombin injection 09/21/24, CLI s/p left femoral endarterectomy with EIA/LIQUEFACTION AND REGASIFICATION HELPER stenting 10/17/24, who presented to [facility] 11/05/2024 with wound infection. [...] 09/21/24, CLI s/p left femoral endarterectomy with EIA/LIQUEFACTION AND REGASIFICATION HELPER stenting 10/17/24, who presented to [facility] 11/05/2024 with wound infection. [...] by: Reid Daniels MD at 11/11/2024 0852 Dispo: Continue Current Level of Care Reid [...] to follow, Submitted by: Kalpesh Lord PharmD, [facility] 11/10/2024 12:45 PM * Care Plan [...] 09/21/24, CLI s/p left femoral endarterectomy with EIA/LIQUEFACTION AND REGASIFICATION HELPER stenting 10/17/24, who presented to [facility] 11/05/2024 with wound infection. [...] 09/21/24, CLI s/p left femoral endarterectomy with EIA/LIQUEFACTION AND REGASIFICATION HELPER stenting 10/17/24, who presented to [facility] 11/05/2024 with wound infection. [...] rest Intervention: Provide Person-Centered Care Flowsheets (Taken 11/09/20241) Trust Relationship/Rapport: care explained emotional support provided [...] Barraza RN Authorized by: Nathaly Nowak MD [place] Protocol: Verbal consent obtained?: Yes Written consent [...] selection rationale: Left pacemaker Catheter Lot #: [id number] Catheter repairer hairspring: 248 [employer] Catheter placed: Single lumen Catheter size: 4 [...] 09/21/24, CLI s/p left femoral endarterectomy with EIA/LIQUEFACTION AND REGASIFICATION HELPER stenting 10/17/24, who presented to [facility] 11/05/2024 with wound infection. [...] 09/21/24, CLI s/p left femoral endarterectomy with EIA/LIQUEFACTION AND REGASIFICATION HELPER stenting 10/17/24, who presented to [facility] 11/05/2024 with wound infection. [...] Level of Care [place] M4 student [id number] Cosigned by Nathaly Nowak MD at 11/11/2024 [...] Patient reports he went to [facility] 12th floor via w/c yesterday [...] Mobility: Ambulatory- community (was utilizing scooter at [facility] since discharge) Mobility [place]: Independent gait with device History of Falls: [...] Mobility Bed Mobility Exam: Scooting/Bridging Level of [place]: Modified independence Bed Mobility Exam: Supine to Sit Level of [place]: Modified [place] Transfers Transfer Exam: Sit to stand Level of [place]: Modified independence Assistive Device: Rollator Transfer Exam: Stand to Sit Level of [place]: Modified independence Assistive Device: Rollator Ambulation Device: [...] maintain/improve functional mobility and endurance. Standardized Assessments [facility] 6-Clicks Mobility Assessment Difficulty patient [...] 3-5 steps with a railing?: A little [facility] 6-Clicks Mobility Assessment Total : [...] Mobility Ambulatory- community (was utilizing scooter at [facility] since discharge) Mobility [place] Independent gait with device History of Falls [...] distal to knee) BED MOBILITY Level of [place] Physical/Non-physical Assist Adaptive Equipment Utilized Scooting/ Bridging Modified independence Supine to Sit Modified [place] TRANSFERS Level of [place] Physical/Non-physical Assist Adaptive Equipment Utilized Sit to Stand Modified independence Rollator Stand to sit Modified independence Rollator Toilet Transfer Modified independence Grab bar FUNCTIONAL MOBILITY Ambulation Modified independent 200ft x2 with seated rest break between bouts; RPE 5-7/10. Cues forsafety with rollator brakes. Rollator Comments BALANCE Postural Appearance Posture: Within Functional Limits Level of [place] Balance Support Static Sit Independent Feet supported Dynamic Sit Independent Feet supported Static Stand Independent Right upper extremity support, Left upper extremity support (via rollator) Dynamic Stand Independent Right upper extremity support, Left upper extremity support (via rollator) STANDARDIZED ASSESSMENTS [facility] 6-Click Daily Activities Help from Other: Don/Doff Regular Lower Body Clothings: None Help From Other: Bathing: None Help From Other: Toileting: None Help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 Unknown 11/13/2024 5:16 PM EDT 11/13/2024 5:17 PM EDT us Nathaly Nowak MD LAB POINT OF CARE TE ST DOCKED DEVICE UNSOLICITED RESULTS Final Result [facility] [address] [place] [address] * [place] NEGATIVE PRESSURE WOUND THERAPY DME </= 50 [...] POCT glucose meter (11/13/2024 11:58 AM EDT) [facility] POCT Glucose 146(H) 74 - 99 [...] Comment 11/13/2024 12:00 PM EDT [facility] [employer] Layout Designer ID Estefani Sheth 11/13/2024 12:00 PM EDT [facility] Device ID [id number] 11/13/2024 12:00 PM EDT [facility] Specimen Type POC Capillary 11/13/2024 12:00 PM EDT [facility] Blood Capillary blood specimen / Unknown 11/13/2024 11:58 AM EDT 11/13/2024 12:00 PM EDT us Nathaly Nowak MD LAB POINT OF CARE TE ST DOCKED DEVICE UNSOLICITED RESULTS Final Result Performing Organization Address City/State/[facility] Co de Phone Number [facility] [address] [place] [address] * (ABNORMAL) POCT glucose meter (11/13/2024 8:23 AM EDT) [facility] POCT Glucose 195(H) 74 - 99 [...] 11/13/2024 8:24 AM EDT [facility] [employer] Layout Designer ID Estefani Sheth 11/13/2024 8:24 AM EDT [facility] Device ID [id number] 11/13/2024 8:24 AM EDT [facility]ARE LAB Specimen Type POC Capillary 11/13/2024 8:24 AM EDT [facility] Blood Capillary blood specimen / Unknown 11/13/2024 8:23 AM EDT 11/13/2024 8:24 AM EDT Result [facility] us Nathaly Nowak MD LAB POINT OF CARE TE ST DOCKED DEVICE UNSOLICITED RESULTS Final Result Performing Organization Address City/[facility]/ZIP Co de Phone Number [facility] [address] [place] [address] * (ABNORMAL) Phosphorus, Plasma (11/13/2024 6:37 AM EDT) Phosphorus, Plasma 1.7(L) 2.5 - 4.5 mg/dL 11/13/2024 7:16 AM EDT [facility] Blood Venous blood specimen / Unknown Venipuncture / Unknown 11/13/2024 6:37 AM EDT 11/13/2024 6:44 AM EDT us Nathaly Nowak MD LAB BLOOD ORDERABLES Final Resu lt Performing Organization Address [facility] Co de Phone Number [facility] [address] [place] [id number] * Magnesium, Plasma (11/13/2024 6:37 AM EDT) Magnesium, Plasma 2.0 1.9 - 2.4 mg/dL 11/13/2024 7:16 AM EDT [facility] Blood Venous blood specimen / Unknown Venipuncture / Unknown 11/13/2024 6:37 AM EDT 11/13/2024 6:44 AM EDT us Nathaly Nowak MD LAB BLOOD ORDERABLES Final Resu lt Performing Organization Address [facility] Co de Phone Number [facility] [address] [place] [phone] * (ABNORMAL) CBC W/O Differential (11/13/2024 6:37 [...] Resu lt [facility] [address] [place] [address] * (ABNORMAL) Basic Metabolic Panel, Plasma (11/13/2024 6:37 AM EDT) [facility] Glucose, Plasma 200(H) 74 - 99 [...] Resu lt [facility] [address] [place] [address] * (ABNORMAL) POCT glucose meter (11/12/2024 8:27 [...] 11/12/2024 8:29 PM EDT [facility] [employer] Layout Designer ID Nelda Gerber 11/13/19 8:29 PM EDT [facility]ARE LAB Device ID [id number] 11/12/2024 8:29 PM EDT [facility] Specimen Type POC Capillary 11/12/2024 8:29 PM EDT [facility] Blood Capillary blood specimen / Unknown 11/12/2024 8:27 PM EDT 11/12/2024 8:29 PM EDT Nathaly Nowak MD LAB POINT OF CARE TE ST DOCKED DEVICE UNSOLICITED RESULTS Final Result [facility] [address] [place] [address] * (ABNORMAL) POCT glucose meter (11/12/2024 5:08 PM EDT) [facility] POCT Glucose 157(H) 74 - 99 [...] 11/12/2024 5:10 PM EDT [facility] [employer] Layout Designer ID BradenWade 5:10 PM EDT [facility] Device ID [id number] 11/12/2024 5:10 PM EDT [facility] Specimen Type POC Capillary 11/12/2024 5:10 PM EDT [facility] Blood Capillary blood specimen / Unknown 11/12/2024 5:08 PM EDT 11/12/2024 5:10 PM EDT us Nathaly Nowak MD LAB POINT OF CARE TE ST DOCKED DEVICE UNSOLICITED RESULTS Final Result Performing Organization Address [facility] Co de Phone Number [facility] [address] [place] [address] * (ABNORMAL) POCT glucose meter (11/12/2024 12:36 PM EDT) Pathologist [facility] POCT Glucose 224(H) 74 - 99 mg/dL [...] Comment 11/12/2024 12:38 PM EDT [facility] [employer] Layout Designer ID Wade Feliciano Tobias 12:38 PM EDT [facility]ALTH[facility]ARE LAB Device ID [id number] 11/12/2024 12:38 PM EDT [facility] Specimen Type POC Capillary 11/12/2024 12:38 PM EDT [facility] Blood Capillary blood specimen / Unknown 11/12/2024 12:36 PM EDT 11/12/2024 12:38 PM EDT us Nathaly Nowak MD LAB POINT OF CARE TE ST DOCKED DEVICE UNSOLICITED RESULTS Final Result Performing Organization Address City/[facility]/ZIP Co de Phone Number [facility] [address] [place] [address] * Clostridiodes (Clostridium) difficile PCR (11/12/2024 9:50 AM EDT) [facility] C difficile PCR toxin B gene [...] Nowak MD LAB MICROBIOLOGY - GENERAL ORDE [facility] Final Result [facility] [address] [place] [address] * Comprehensive GI Panel by PCR (11/12/2024 [...] ORDE RABLES Final Result Performing Organization Address [facility]/ZIP Co de Phone Number [facility] [address] [place] [address] * C-reactive protein (11/12/2024 9:48 AM EDT) [facility] CRP, Plasma <3.0 <=8.0 mg/L 11/12/2024 [...] Final Resu lt Performing Organization Address [facility] Co de Phone Number [facility] [address] [place] [address] * (ABNORMAL) POCT glucose meter (11/12/2024 8:20 AM EDT) [facility] POCT Glucose 138(H) 74 - 99 [...] Comment 11/12/2024 8:21 AM EDT [facility] [employer] Layout Designer ID Wade Feliciano 8:21 AM EDT [facility]ARE LAB Device ID [id number] 11/12/2024 8:21 AM EDT [facility] Specimen Type POC Capillary 11/12/2024 8:21 AM EDT [facility] Blood Capillary blood specimen / Unknown 11/12/2024 8:20 AM EDT 11/12/2024 8:21 AM EDT Nathaly Nowak MD LAB POINT OF CARE TE ST DOCKED DEVICE UNSOLICITED RESULTS Final Result Performing Organization Address [facility] Co de Phone Number [facility] [address] [place] [address] * (ABNORMAL) POCT glucose meter (11/11/2024 8:18 PM EDT) [facility] POCT Glucose 248(H) 74 - 99 [...] Comment 11/11/2024 8:20 PM EDT [facility] [employer] Layout Designer ID Nelda Gerber 11/12/19 8:20 PM EDT [facility] LAB Device ID [id number] 11/11/2024 8:20 PM EDT [facility] Specimen Type POC Capillary 11/11/2024 8:20 PM EDT [facility] Blood Capillary blood specimen / Unknown 11/11/2024 8:18 PM EDT 11/11/2024 8:20 PM EDT Nathaly Nowak MD LAB POINT OF CARE TE ST DOCKED DEVICE UNSOLICITED RESULTS Final Result Performing Organization Address [facility] Co de Phone Number [facility] [address] [place] [address] * (ABNORMAL) POCT glucose meter (11/11/2024 5:59 PM EDT) [facility] POCT Glucose 147(H) 74 - 99 [...] Comment 11/11/2024 6:01 PM EDT [facility] [employer] Layout Designer ID Wade Feliciano 6:01 PM EDT [facility] LAB Device ID [id number] 11/11/2024 6:01 PM EDT [facility] Specimen Type POC Capillary 11/11/2024 6:01 PM EDT [facility] Blood Capillary blood specimen / Unknown 11/11/2024 5:59 PM EDT 11/11/2024 6:01 PM EDT Nathaly Nowak MD LAB POINT OF CARE TE ST DOCKED DEVICE UNSOLICITED RESULTS Final Result Performing Organization Address [facility]/ZIP Co de Phone Number [facility] [address] [place] [address] * POCT glucose meter (11/11/2024 5:20 PM EDT) [facility] POCT Glucose 84 74 - 99 [...] Comment 11/11/2024 5:22 PM EDT [facility] [employer] Layout Designer ID Wade Feliciano 5:22 PM EDT [facility] LAB Device ID [id number] 11/11/2024 5:22 PM EDT [facility] Specimen Type POC Capillary 11/11/2024 5:22 PM EDT [facility] Blood Capillary blood specimen / Unknown 11/11/2024 5:20 PM EDT 11/11/2024 5:22 PM EDT us Nathaly Nowak MD LAB POINT OF CARE TE ST DOCKED DEVICE UNSOLICITED RESULTS Final Result [facility] [address] [place] [address] * [place] NEGATIVE PRESSURE WOUND THERAPY DME >50 SQ [...] 11/11/2024 12:10 PM EDT [facility] [employer] Layout Designer ID BradenWade 12:10 PM EDT [facility] Device ID [id number] 11/11/2024 12:10 PM EDT [facility] Specimen Type POC Capillary 11/11/2024 12:10 PM EDT [facility] Blood Capillary blood specimen / Unknown 11/11/2024 12:08 PM EDT 11/11/2024 12:10 PM EDT us Nathaly Nowak MD LAB POINT OF CARE TE ST DOCKED DEVICE UNSOLICITED RESULTS Final Result [facility] [address] [place] [address] * (ABNORMAL) POCT glucose meter (11/11/2024 9:08 AM EDT) POCT Glucose 162(H) 74 - 99 mg/dL 11/11/2024 9:09 AM EDT [facility] Comment:Accuracy of a glucos e result [...] for testing. Comment 11/11/2024 9:09 AM EDT [facility] [employer] Layout Designer ID Wade Feliciano 9:09 AM EDT [facility] Device ID [id number] 11/11/2024 9:09 AM EDT [facility] Specimen Type POC Capillary 11/11/2024 9:09 AM EDT [facility] Blood Capillary blood specimen / Unknown 11/11/2024 9:08 AM EDT 11/11/2024 9:09 AM EDT us Nathaly Nowak MD LAB POINT OF CARE TE ST DOCKED DEVICE UNSOLICITED RESULTS Final Result [facility] [address] [place] [address] * POCT glucose meter (11/11/2024 8:27 AM EDT) Pathologist [facility] POCT Glucose 87 74 - 99 mg/dL 11/11/2024 8:28 AM EDT [facility] Comment:Accuracy of a glucos e result [...] Comment 11/11/2024 8:28 AM EDT [facility] [employer] Layout Designer ID Wade Feliciano 8:28 AM EDT [facility]ARE LAB Device ID [id number] 11/11/2024 8:28 AM EDT [facility] Specimen Type POC Capillary 11/11/2024 8:28 AM EDT [facility] Blood Capillary blood specimen / Unknown 11/11/2024 8:27 AM EDT 11/11/2024 8:28 AM EDT us Nathaly Nowak MD LAB POINT OF CARE TE ST DOCKED DEVICE UNSOLICITED RESULTS Final Result [facility] [address] [place] [address] * (ABNORMAL) Basic Metabolic Panel, Plasma (11/11/2024 [...] Resu lt [facility] [address] [place] [address] * (ABNORMAL) CBC W/O Differential (11/11/2024 12:56 [...] ORDERABLES Final Resu lt Performing Organization Address City/[facility]/ZIP Co de Phone Number [facility] [address] [place] [address] * (ABNORMAL) POCT glucose meter (11/10/2024 8:25 [...] Comment 11/10/2024 8:28 PM EDT [facility] [employer] Layout Designer ID Nelda Gerber 11/11/19 8:28 PM EDT [facility] LAB Device ID [id number] 11/10/2024 8:28 PM EDT [facility] Specimen Type POC Capillary 11/10/2024 8:28 PM EDT [facility] Blood Capillary blood specimen / Unknown 11/10/2024 8:25 PM EDT 11/10/2024 8:28 PM EDT us Nathaly Nowak MD LAB POINT OF CARE TE ST DOCKED DEVICE UNSOLICITED RESULTS Final Result Performing Organization Address [facility]/ZIP Co de Phone Number [facility] [address] [place] [address] * (ABNORMAL) POCT glucose meter (11/10/2024 4:45 [...] 11/10/2024 4:47 PM EDT [facility] [employer] Layout Designer ID Esperanza Parks 11/10/2024 4:47 PM EDT [facility] Device ID [id number] 11/10/2024 4:47 PM EDT [facility] Specimen Type POC Capillary 11/10/2024 4:47 PM EDT [facility] Blood Capillary blood specimen / Unknown 11/10/2024 4:45 PM EDT 11/10/2024 4:47 PM EDT Nathaly Nowak MD LAB POINT OF CARE TE ST DOCKED DEVICE UNSOLICITED RESULTS Final Result Performing Organization Address City/State/[facility] Co de Phone Number [facility] [address] [place] [address] * (ABNORMAL) POCT glucose meter (11/10/2024 12:13 PM EDT) [facility] POCT Glucose 131(H) 74 - 99 [...] 11/10/2024 12:14 PM EDT [facility] [employer] Layout Designer ID Esperanza Parks 11/10/2024 12:14 PM EDT [facility] Device ID [id number] 11/10/2024 12:14 PM EDT [facility] Specimen Type POC Capillary 11/10/2024 12:14 PM EDT [facility] Blood Capillary blood specimen / Unknown 11/10/2024 12:13 PM EDT 11/10/2024 12:14 PM EDT us Nathaly Nowak MD LAB POINT OF CARE TE ST DOCKED DEVICE UNSOLICITED RESULTS Final Result Performing Organization Address [facility] Co de Phone Number [facility] [address] [place] [address] * Vancomycin, Peak, Plasma Please draw ~2 hours after 0800 dose of vancomycin finishes infusing. Consider obtaining level via peripheral stick. If peripheral stick is not feasible, please ensure that line is flushed well prior to drawing level. Than... (11/10/2024 10:56 AM EDT) [facility] Vancomycin, Peak, Plasma 23.8 20.0 - [...] ORDERABLES Final Res ult Performing Organization Address [facility] de Phone Number [facility] [address] [place] [address] * (ABNORMAL) POCT glucose meter (11/10/2024 8:03 AM EDT) [facility] POCT Glucose 174(H) 74 - 99 mg/dL 11/10/2024 8:04 AM EDT [facility] Comment:Accuracy of a glucos e result [...] Comment 11/10/2024 8:04 AM EDT [facility] [employer] Layout Designer ID Pierre Parksn 11/10/2024 8:04 AM EDT [facility]ARE LAB Device ID [id number] 11/10/2024 8:04 AM EDT [facility] Specimen Type POC Capillary 11/10/2024 8:04 AM EDT [facility] Blood Capillary blood specimen / Unknown 11/10/2024 8:03 AM EDT 11/10/2024 8:04 AM EDT us Nathaly Nowak MD LAB POINT OF CARE TE ST DOCKED DEVICE UNSOLICITED RESULTS Final Result Performing Organization Address [facility] Co de Phone Number [facility] [address] [place] [address] * Vancomycin, Trough, Plasma Please draw ~30 [...] ORDERABLES Final Res ult Performing Organization Address [facility]/ZIP Co de Phone Number [facility] [address] [place] [address] * (ABNORMAL) CBC and Differential (11/10/2024 12:31 [...] lt [facility] [address] [place] [address] * (ABNORMAL) Comprehensive Metabolic Panel, Plasma (11/10/2024 [...] Final Resu lt [facility] [address] [place] [address] * (ABNORMAL) POCT glucose meter (11/09/2024 8:04 PM EDT) [facility] POCT Glucose 114(H) 74 - 99 [...] Comment 11/09/2024 8:06 PM EDT [facility] [employer] Layout Designer ID Maximiliano Hansen II 11/09/2024 8:06 PM EDT [facility]ARE LAB Device ID [id number] 11/09/2024 8:06 PM EDT [facility] Specimen Type POC Capillary 11/09/2024 8:06 PM EDT [facility] Blood Capillary blood specimen / Unknown 11/09/2024 8:04 PM EDT 11/09/2024 8:06 PM EDT Nathaly Nowak MD LAB POINT OF CARE TE ST DOCKED DEVICE UNSOLICITED RESULTS Final Result Performing Organization Address [facility] Co de Phone Number [facility] [address] [place] [address] * (ABNORMAL) POCT glucose meter (11/09/2024 4:36 PM EDT) [facility] POCT Glucose 166(H) 74 - 99 [...] 11/09/2024 4:38 PM EDT [facility] [employer] Layout Designer ID [email or web address] 11/09/2024 4:38 PM EDT [facility] Device ID [id number] 11/09/2024 4:38 PM EDT [facility] Specimen Type POC Capillary 11/09/2024 4:38 PM EDT [facility] Blood Capillary blood specimen / Unknown 11/09/2024 4:36 PM EDT 11/09/2024 4:38 PM EDT Nathaly Nowak MD LAB POINT OF CARE TE ST DOCKED DEVICE UNSOLICITED RESULTS Final Result [facility] [address] [place] [address] * PICC SINGLE LUMEN ([employer] LINK) (11/09/2024 1:11 PM EDT) Narrative Estefani Barraza RN - 11/09/2024 1:11 PM EDT Estefani Barraza RN 11/09/2024 1:12 PM Insert PICC line Date/Time: 11/09/2024 1:11 PM Performed by: Estefani Barraza RN Authorized by: Nathaly Nowak MD [place] Protocol: Verbal consent obtained?: Yes Written consent [...] selection rationale: Left pacemaker Catheter Lot #: [id number] Catheter repairer hairspring: 248 [employer] Catheter placed: Single lumen Catheter size: 4 [...] Comment 11/09/2024 11:51 AM EDT [facility] [employer] Layout Designer ID Kristian Sosa 11/09/2024 11:51 AM EDT [facility] Device ID [id number] 11/09/2024 11:51 AM EDT [facility] Specimen Type POC Capillary 11/09/2024 11:51 AM EDT [facility] Blood Capillary blood specimen / Unknown 11/09/2024 11:50 AM EDT 11/09/2024 11:51 AM EDT Nathaly Nowak MD LAB POINT OF CARE TE ST DOCKED DEVICE UNSOLICITED RESULTS Final Result [facility] [address] [place] [address] * (ABNORMAL) POCT glucose meter (11/09/2024 8:14 [...] Comment 11/09/2024 8:15 AM EDT [facility] [employer] Layout Designer ID Kristian Sosa 11/09/2024 8:15 AM EDT [facility]ALTH[facility]ARE LAB Device ID [id number] 11/09/2024 8:15 AM EDT [facility] Specimen Type POC Capillary 11/09/2024 8:15 AM EDT [facility] Blood Capillary blood specimen / Unknown 11/09/2024 8:14 AM EDT 11/09/2024 8:15 AM EDT us Nathaly Nowak MD LAB POINT OF CARE TE ST DOCKED DEVICE UNSOLICITED RESULTS Final Result Performing Organization Address City/State/[facility] Co de Phone Number [facility] [address] [place] [address] * (ABNORMAL) CBC and Differential (11/09/2024 4:15 [...] LAB HEMATOLOGY METHOD 11/09/2024 4:26 AM EDT [facility] Lymphocytes Absolute 1.32 1.20 - [...] Resu lt [facility] [address] [place] [address] * (ABNORMAL) Comprehensive Metabolic Panel, Plasma (11/09/2024 [...] Resu lt [facility] [address] [place] [address] * (ABNORMAL) POCT glucose meter (11/09/2024 3:30 AM EDT) POCT Glucose 160(H) 74 - 99 mg/dL 11/09/2024 3:31 AM EDT [facility] Comment:Accuracy of a glucos e [...] Comment 11/09/2024 3:31 AM EDT [facility] [employer] Layout Designer ID Maximiliano Hansen II 11/09/2024 3:31 AM EDT [facility] LAB Device ID [id number] 11/09/2024 3:31 AM EDT [facility] Specimen Type POC Capillary 11/09/2024 3:31 AM EDT [facility] Blood Capillary blood specimen / Unknown 11/09/2024 3:30 AM EDT 11/09/2024 3:31 AM EDT Nathaly Nowak MD LAB POINT OF CARE TE ST DOCKED DEVICE UNSOLICITED RESULTS Final Result Performing Organization Address City/[facility]/ZIP Co de Phone Number [facility] [address] [place] [address] * (ABNORMAL) POCT glucose meter (11/08/2024 7:21 [...] Comment 11/08/2024 7:22 PM EDT [facility] [employer] Layout Designer ID Maximiliano Hansen II 11/08/2024 7:22 PM EDT [facility] LAB Device ID [id number] 11/08/2024 7:22 PM EDT [facility] Specimen Type POC Capillary 11/08/2024 7:22 PM EDT [facility] Blood Capillary blood specimen / Unknown 11/08/2024 7:21 PM EDT 11/08/2024 7:22 PM EDT Nathaly Nowak MD LAB POINT OF CARE TE ST DOCKED DEVICE UNSOLICITED RESULTS Final Result Performing Organization Address City/[facility]/ZIP Co de Phone Number [facility] [address] [place] [address] * (ABNORMAL) POCT glucose meter (11/08/2024 5:12 PM EDT) [facility] POCT Glucose 178(H) 74 - [...] Comment 11/08/2024 5:14 PM EDT [facility] [employer] Layout Designer ID Estefani Sheth 11/08/2024 5:14 PM EDT [facility] Device ID [id number] 11/08/2024 5:14 PM EDT [facility] Specimen Type POC Capillary 11/08/2024 5:14 PM EDT [facility] Blood Capillary blood specimen / Unknown 11/08/2024 5:12 PM EDT 11/08/2024 5:14 PM EDT Nathaly Nowak MD LAB POINT OF CARE TE ST DOCKED DEVICE UNSOLICITED RESULTS Final Result Performing Organization Address City/State/[facility] Co de Phone Number [facility] [address] [place] [address] * (ABNORMAL) POCT glucose meter (11/08/2024 12:03 PM EDT) [facility] POCT Glucose 191(H) 74 - 99 [...] 11/08/2024 12:05 PM EDT [facility] [employer] Layout Designer ID Estefani Sheth 11/08/2024 12:05 PM EDT HEALTH[facility]ARE LAB Device ID [id number] 11/08/2024 12:05 PM EDT [facility] Specimen Type POC Capillary 11/08/2024 12:05 PM EDT [facility] Blood Capillary blood specimen / Unknown 11/08/2024 12:03 PM EDT 11/08/2024 12:05 PM EDT Result [facility] Nathaly Nowak MD LAB POINT OF CARE TE ST DOCKED DEVICE UNSOLICITED RESULTS Final Result Performing Organization Address [facility] de Phone Number [facility] [address] [place] [address] * Vancomycin, Peak, Plasma Please draw ~2 hours after 11/08 0600 dose of vancomycin finishes infusing.Consider obtaining level via peripheral stick. If peripheral stick is not feasible, please ensure that line is flushed well prior to drawing level.... (11/08/2024 9:24 AM EDT) [facility] Vancomycin, Peak, Plasma 29.1 20.0 - [...] Final Resu lt Performing Organization Address [facility] de Phone Number [facility] [address] [place] [address] * (ABNORMAL) POCT glucose meter (11/08/2024 8:00 AM EDT) [facility] POCT Glucose 150(H) 74 - 99 mg/dL 11/08/2024 8:01 AM EDT [facility] Comment:Accuracy of a glucos e [...] Comment 11/08/2024 8:01 AM EDT HEALTHCARE LAB Integrated [employer] Layout Designer ID Estefani Sheth 11/08/2024 8:01 AM EDT HEALTHCARE LAB Device ID [id number] 11/08/2024 8:01 AM EDT [facility]ALTH[facility]ARE LAB Specimen Type POC Capillary 11/08/2024 8:01 AM EDT [facility]ALTH[facility]ARE [facility] Blood Capillary blood specimen / Unknown 11/08/2024 8:00 AM EDT 11/08/2024 8:01 AM EDT us Nathaly Nowak MD LAB POINT OF CARE TE ST DOCKED DEVICE UNSOLICITED RESULTS Final Result [facility] [address] [place] [address] * (ABNORMAL) CBC and Differential (11/08/2024 4:39 [...] Resu lt [facility] [address] [place] [address] * (ABNORMAL) Comprehensive Metabolic Panel, Plasma (11/08/2024 [...] lt [facility] [address] [place] [address] * Vancomycin, Trough, Plasma Please draw ~30 [...] ORDERABLES Final Resu lt Performing Organization Address City/[facility]/ZIP Co de Phone Number [facility] [address] [place] [address] * (ABNORMAL) POCT glucose meter (11/07/2024 7:26 PM EDT) Pathologist [facility] POCT Glucose 172(H) 74 - 99 mg/dL [...] Comment 11/07/2024 7:28 PM EDT HEALTHCARE [facility] [employer] Layout Designer ID Maximiliano Hansen II 11/07/2024 7:28 PM EDT HEALTHCARE LAB Device ID [id number] 11/07/2024 7:28 PM EDT [facility] Specimen Type POC Capillary 11/07/2024 7:28 PM EDT [facility] Blood Capillary blood specimen / Unknown 11/07/2024 7:26 PM EDT 11/07/2024 7:28 PM EDT us Nathaly Nowak MD LAB POINT OF CARE TE ST DOCKED DEVICE UNSOLICITED RESULTS Final Result Performing Organization Address City/[facility]/ZIP Co de Phone Number [facility] [address] [place] [address] * (ABNORMAL) POCT glucose meter (11/07/2024 5:51 PM EDT) Pathologist [facility] POCT Glucose 183(H) 74 - 99 mg/dL [...] 11/07/2024 5:52 PM EDT [facility] Integrated [employer]c Layout Designer ID Brigitte Castellon 11/07/2024 5:52 PM EDT [facility] Device ID [id number] 11/07/2024 5:52 PM EDT [facility] Specimen Type POC Capillary 11/07/2024 5:52 PM EDT [facility] Blood Capillary blood specimen / Unknown 11/07/2024 5:51 PM EDT 11/07/2024 5:52 PM EDT us Nathaly Nowak MD LAB POINT OF CARE TE ST DOCKED DEVICE UNSOLICITED RESULTS Final Result Performing Organization Address City/[facility] Co de Phone Number [facility]ARE [facility] [address] [place] [address] * (ABNORMAL) POCT glucose meter (11/07/2024 4:47 [...] 11/07/2024 4:48 PM EDT [facility] [employer] Layout Designer ID Estefani Sheth 11/07/2024 4:48 PM EDT [facility]ALTH[facility]ARE LAB Device ID [id number] 11/07/2024 4:48 PM EDT [facility]ARE LAB Specimen Type POC Capillary 11/07/2024 4:48 PM EDT [facility] Blood Capillary blood specimen / Unknown 11/07/2024 4:47 PM EDT 11/07/2024 4:48 PM EDT us Nathaly Nowak MD LAB POINT OF CARE TE ST DOCKED DEVICE UNSOLICITED RESULTS Final Result Performing Organization Address City/[facility] Co de Phone Number [facility] [address] [place] [address] * (ABNORMAL) POCT glucose meter (11/07/2024 12:22 PM EDT) [facility] POCT Glucose 172(H) 74 - 99 [...] Comment 11/07/2024 12:24 PM EDT [facility]ALTH[facility]ARE [facility] Integrated [employer] Layout Designer ID Estefani Sheth 11/07/2024 12:24 PM EDT HEALTH[facility]ARE LAB Device ID [id number] 11/07/2024 12:24 PM EDT [facility]ALTH[facility]ARE LAB Specimen Type POC Capillary 11/07/2024 12:24 PM EDT [facility] Blood Capillary blood specimen / Unknown 11/07/2024 12:22 PM EDT 11/07/2024 12:24 PM EDT us Nathaly Nowak MD LAB POINT OF CARE TE ST DOCKED DEVICE UNSOLICITED RESULTS Final Result [facility] [address] [place] [address] * (ABNORMAL) CBC and Differential (11/07/2024 11:37 AM EDT) [facility] WBC Count 9.96 3.70 - 10.30 [...] Resu lt [facility] [address] [place] [address] * (ABNORMAL) Comprehensive Metabolic Panel, Plasma (11/07/2024 11:37 AM EDT) Glucose, Plasma 173(H) 74 - 99 mg/dL 11/07/2024 1:31 PM EDT [facility] BUN, Plasma 13 8 - 23 mg/dL 11/07/2024 1:31 PM EDT [facility] Creatinine, Plasma 0.92 0.70 - 1.20 mg/dL 11/07/2024 1:31 PM EDT [facility] BUN/Creatinine Ratio 11/07/2024 1:31 PM EDT [facility] [...] Resu lt [facility] [address] [place] [address] * Type and Screen (11/07/2024 11:37 AM [...] ORDERABLES F inal Result Performing Organization Address City/[facility]/ZIP Co de Phone Number BLOOD BANK [address] * (ABNORMAL) POCT glucose meter (11/07/2024 [...] Comment 11/07/2024 10:36 AM EDT [facility]ALTH[facility]ARE [facility] [employer] Layout Designer ID Joy Iraheta 11/07/2024 10:36 AM EDT HEALTH[facility]ARE LAB Device ID [id number] 11/07/2024 10:36 AM EDT [facility]ALTH[facility]ARE LAB Specimen Type POC Capillary 11/07/2024 10:36 AM EDT [facility] Blood Capillary blood specimen / Unknown 11/07/2024 10:34 AM EDT 11/07/2024 10:36 AM EDT Nathaly Nowak MD LAB POINT OF CARE TE ST DOCKED DEVICE UNSOLICITED RESULTS Final Result [facility] [address] [place] [address] * (ABNORMAL) POCT glucose meter (11/07/2024 9:34 [...] Comment 11/07/2024 9:36 AM EDT [facility] Integrated [employer] Layout Designer ID Brigitte Castellon 11/07/2024 9:36 AM EDT [facility]ALTH[facility]ARE LAB Device ID [id number] 11/07/2024 9:36 AM EDT [facility]ALTH[facility]ARE LAB Specimen Type POC Capillary 11/07/2024 9:36 AM EDT [facility] Blood Capillary blood specimen / Unknown 11/07/2024 9:34 AM EDT 11/07/2024 9:36 AM EDT Nathaly Nowak MD LAB POINT OF CARE TE ST DOCKED DEVICE UNSOLICITED RESULTS Final Result Performing Organization Address City/State/[facility] Co de Phone Number [facility]ARE LAB [address] [place] [address] * (ABNORMAL) POCT glucose meter (11/07/2024 8:20 [...] Comment 11/07/2024 8:22 AM EDT [facility] [employer] Layout Designer ID Estefani Sheth 11/07/2024 8:22 AM EDT HEALTH[facility]ARE LAB Device ID [id number] 11/07/2024 8:22 AM EDT [facility]ARE LAB Specimen Type POC Capillary 11/07/2024 8:22 AM EDT [facility] LAB Blood Capillary blood specimen / Unknown 11/07/2024 8:20 AM EDT 11/07/2024 8:22 AM EDT Nathaly Nowak MD LAB POINT OF CARE TE ST DOCKED DEVICE UNSOLICITED RESULTS Final Result Performing Organization Address [facility] de Phone Number [facility]ARE [facility] [address] [place] [address] * (ABNORMAL) POCT glucose meter (11/07/2024 7:21 AM EDT) Pathologist [facility] POCT Glucose 151(H) 74 - 99 mg/dL [...] Comment 11/07/2024 7:22 AM EDT [facility] Integrated [employer] Layout Designer ID Brigitte Castellon 11/07/2024 7:22 AM EDT [facility] Device ID [id number] 11/07/2024 7:22 AM EDT [facility] Specimen Type POC Capillary 11/07/2024 7:22 AM EDT [facility] Blood Capillary blood specimen / Unknown 11/07/2024 7:21 AM EDT 11/07/2024 7:22 AM EDT Nathaly Nowak MD LAB POINT OF CARE TE ST DOCKED DEVICE UNSOLICITED RESULTS Final Result Performing Organization Address City/[facility] Co de Phone Number [facility]ARE LAB [address] [place] [address] * (ABNORMAL) POCT glucose meter (11/07/2024 6:25 AM EDT) Pathologist [facility] POCT Glucose 144(H) 74 - 99 mg/dL [...] 11/07/2024 6:27 AM EDT [facility] Integrated [employer]c Layout Designer ID Nelda Gerber 11/08/19 6:27 AM EDT [facility] Device ID [id number] 11/07/2024 6:27 AM EDT HEALTHCARE LAB Specimen Type POC Capillary 11/07/2024 6:27 AM EDT [facility] Blood Capillary blood specimen / Unknown 11/07/2024 6:25 AM EDT 11/07/2024 6:27 AM EDT Nathaly Nowak MD LAB POINT OF CARE TE ST DOCKED DEVICE UNSOLICITED RESULTS Final Result Performing Organization Address [facility] de Phone Number [facility]ARE [facility] [address] [place] [address] * (ABNORMAL) POCT glucose meter (11/07/2024 5:03 AM EDT) [facility] Signature POCT Glucose 139(H) 74 - 99 mg/dL [...] Comment 11/07/2024 5:08 AM EDT [facility]ALTH[facility]ARE [facility] Integrated [employer] Layout Designer ID Nelda Gerber 11/08/19 5:08 AM EDT HEALTH[facility]ARE LAB Device ID [id number] 11/07/2024 5:08 AM EDT [facility]ALTH[facility]ARE LAB Specimen Type POC Capillary 11/07/2024 5:08 AM EDT [facility] LAB Blood Capillary blood specimen / Unknown 11/07/2024 5:03 AM EDT 11/07/2024 5:08 AM EDT Nathaly Nowak MD LAB POINT OF CARE TE ST DOCKED DEVICE UNSOLICITED RESULTS Final Result Performing Organization Address City/[facility] Co de Phone Number [facility]ARE LAB [address] [place] [address] * (ABNORMAL) POCT glucose meter (11/07/2024 4:16 AM EDT) [facility] POCT Glucose 142(H) 74 - 99 [...] Comment 11/07/2024 4:18 AM EDT HEALTHCARE LAB Integrated [employer] I[employer] Layout Designer ID Nelda Gerber 11/08/19 4:18 AM EDT [facility] Device ID [id number] 11/07/2024 4:18 AM EDT [facility] Specimen Type POC Capillary 11/07/2024 4:18 AM EDT [facility] Blood Capillary blood specimen / Unknown 11/07/2024 4:16 AM EDT 11/07/2024 4:18 AM EDT Nathaly Nowak MD LAB POINT OF CARE TE ST DOCKED DEVICE UNSOLICITED RESULTS Final Result [facility] [address] [place] [address] * (ABNORMAL) POCT glucose meter (11/07/2024 3:21 AM EDT) [facility] POCT Glucose 141(H) 74 - 99 [...] 11/07/2024 3:23 AM EDT [facility] Integrated [employer]c Layout Designer ID Nelda Gerber 11/08/19 3:23 AM EDT [facility] Device ID [id number] 11/07/2024 3:23 AM EDT HEALTHCARE LAB Specimen Type POC Capillary 11/07/2024 3:23 AM EDT [facility] Blood Capillary blood specimen / Unknown 11/07/2024 3:21 AM EDT 11/07/2024 3:23 AM EDT Nathaly Nowak MD LAB POINT OF CARE TE ST DOCKED DEVICE UNSOLICITED RESULTS Final Result Performing Organization Address [facility] Co de Phone Number [facility]ARE [facility] [address] [place] [address] * (ABNORMAL) POCT glucose meter (11/07/2024 2:10 [...] Comment 11/07/2024 2:12 AM EDT [facility]ALTH[facility]ARE [facility] Integrated [employer] Layout Designer ID Nelda Gerber 11/08/19 2:12 AM EDT HEALTHCARE LAB Device ID [id number] 11/07/2024 2:12 AM EDT [facility]ALTH[facility]ARE LAB Specimen Type POC Capillary 11/07/2024 2:12 AM EDT [facility]ALTH[facility] Blood Capillary blood specimen / Unknown 11/07/2024 2:10 AM EDT 11/07/2024 2:12 AM EDT Nathaly Nowak MD LAB POINT OF CARE TE ST DOCKED DEVICE UNSOLICITED RESULTS Final Result Performing Organization Address [facility] Co de Phone Number [facility]ARE [facility] [address] [place] [address] * (ABNORMAL) POCT glucose meter (11/07/2024 1:08 [...] Comment 11/07/2024 1:10 AM EDT [facility]ALTH[facility]ARE [facility] Integrated [employer] Layout Designer ID Nelda Gerber 11/08/19 1:10 AM EDT HEALTHCARE LAB Device ID [id number] 11/07/2024 1:10 AM EDT HEALTHCARE LAB Specimen Type POC Capillary 11/07/2024 1:10 AM EDT [facility] Blood Capillary blood specimen / Unknown 11/07/2024 1:08 AM EDT 11/07/2024 1:10 AM EDT Nathaly Nowak MD LAB POINT OF CARE TE ST DOCKED DEVICE UNSOLICITED RESULTS Final Result Performing Organization Address City/State/[facility] Co de Phone Number HE[facility]ARE LAB [address] [place] [address] * (ABNORMAL) POCT glucose meter (11/07/2024 12:10 AM EDT) [facility] POCT Glucose 127(H) 74 - 99 [...] Comment 11/07/2024 12:13 AM EDT HEALTHCARE [facility] Integrated [employer] Ic Layout Designer ID Nelda Gerber 11/08/19 12:13 AM EDT HEALTHCARE LAB Device ID [id number] 11/07/2024 12:13 AM EDT HEALTH[facility]ARE LAB Specimen Type POC Capillary 11/07/2024 12:13 AM EDT [facility]ALTH[facility]ARE LAB Blood Capillary blood specimen / Unknown 11/07/2024 12:10 AM EDT 11/07/2024 12:13 AM EDT Nathaly Nowak MD LAB POINT OF CARE TE ST DOCKED DEVICE UNSOLICITED RESULTS Final Result Performing Organization Address [facility] Co de Phone Number HE[facility]ARE LAB [address] [place] [address] * (ABNORMAL) POCT glucose meter (11/06/2024 11:14 [...] Comment 11/06/2024 11:16 PM EDT [facility] Integrated [employer] Ic Layout Designer ID Nelda Gerber 11/07/19 11:16 PM EDT [facility] Device ID [id number] 11/06/2024 11:16 PM EDT [facility] Specimen Type POC Capillary 11/06/2024 11:16 PM EDT [facility] Blood Capillary blood specimen / Unknown 11/06/2024 11:14 PM EDT 11/06/2024 11:16 PM EDT Nathaly Nowak MD LAB POINT OF CARE TE ST DOCKED DEVICE UNSOLICITED RESULTS Final Result Performing Organization Address [facility] Co de Phone Number [facility] [address] [place] [address] * (ABNORMAL) POCT glucose meter (11/06/2024 10:07 [...] Comment 11/06/2024 10:09 PM EDT HEALTH[facility]ARE [facility] Integrated [employer]c Layout Designer ID Nelda Gerber 11/07/19 10:09 PM EDT HEALTH[facility]ARE LAB Device ID [id number] 11/06/2024 10:09 PM EDT [facility]ALTH[facility]ARE LAB Specimen Type POC Capillary 11/06/2024 10:09 PM EDT [facility]ARE [facility] Blood Capillary blood specimen / Unknown 11/06/2024 10:07 PM EDT 11/06/2024 10:09 PM EDT Nathaly Nowak MD LAB POINT OF CARE TE ST DOCKED DEVICE UNSOLICITED RESULTS Final Result Performing Organization Address [facility] Co de Phone Number [facility]ARE [facility] [address] [place] [address] * (ABNORMAL) POCT glucose meter (11/06/2024 8:22 [...] Comment 11/06/2024 8:25 PM EDT [facility]ARE [facility] Integrated [employer] Layout Designer ID Nelda Gerber 11/07/19 8:25 PM EDT HEALTHCARE LAB Device ID [id number] 11/06/2024 8:25 PM EDT [facility]ALTH[facility]ARE LAB Specimen Type POC Capillary 11/06/2024 8:25 PM EDT [facility] Blood Capillary blood specimen / Unknown 11/06/2024 8:22 PM EDT 11/06/2024 8:25 PM EDT us Nathaly Nowak MD LAB POINT OF CARE TE ST DOCKED DEVICE UNSOLICITED RESULTS Final Result Performing Organization Address City/[facility]/ZIP Co de Phone Number [facility] [address] [place] [address] * (ABNORMAL) POCT glucose meter (11/06/2024 7:31 PM EDT) Pathologist [facility] POCT Glucose 359(H) 74 - 99 mg/dL [...] Comment 11/06/2024 7:32 PM EDT [facility]ALTH[facility]ARE [facility] Integrated [employer] Ic Layout Designer ID Nelda Gerber 11/07/19 7:32 PM EDT HEALTH[facility]ARE LAB Device ID [id number] 11/06/2024 7:32 PM EDT [facility]ALTH[facility]ARE LAB Specimen Type POC Capillary 11/06/2024 7:32 PM EDT [facility] Blood Capillary blood specimen / Unknown 11/06/2024 7:31 PM EDT 11/06/2024 7:32 PM EDT us Nathaly Nowak MD LAB POINT OF CARE TE ST DOCKED DEVICE UNSOLICITED RESULTS Final Result Performing Organization Address City/State/[facility] Co de Phone Number [facility] [address] [place] [address] * (ABNORMAL) POCT glucose meter (11/06/2024 6:15 PM EDT) [facility] POCT Glucose 368(H) 74 - 99 [...] 11/06/2024 6:17 PM EDT [facility] Integrated [employer] Ic Layout Designer ID Estefani Sheth 11/06/2024 6:17 PM EDT [facility] Device ID [id number] 11/06/2024 6:17 PM EDT [facility] Specimen Type POC Capillary 11/06/2024 6:17 PM EDT HEALTH[facility]ARE LAB Blood Capillary blood specimen / Unknown 11/06/2024 6:15 PM EDT 11/06/2024 6:17 PM EDT Nathaly Nowak MD LAB POINT OF CARE TE ST DOCKED DEVICE UNSOLICITED RESULTS Final Result Performing Organization Address City/[facility]/ZIP Co de Phone Number [facility] [address] [place] [address] * (ABNORMAL) POCT glucose meter (11/06/2024 4:57 [...] Comment 11/06/2024 4:58 PM EDT [facility]ALTH[facility]ARE LAB Integrated [employer] Ic Layout Designer ID Estefani Sheth 11/06/2024 4:58 PM EDT HEALTHCARE LAB Device ID [id number] 11/06/2024 4:58 PM EDT [facility] Specimen Type POC Capillary 11/06/2024 4:58 PM EDT [facility] Blood Capillary blood specimen / Unknown 11/06/2024 4:57 PM EDT 11/06/2024 4:58 PM EDT us Nathaly Nowak MD LAB POINT OF CARE TE ST DOCKED DEVICE UNSOLICITED RESULTS Final Result Performing Organization Address City/[facility]/ZIP Co de Phone Number [facility]ARE [facility] [address] [place] [address] * (ABNORMAL) POCT glucose meter (11/06/2024 2:08 [...] Comment 11/06/2024 2:09 PM EDT [facility]ALTH[facility] Integrated [employer] Layout Designer ID Brigitte Castellon 11/06/2024 2:09 PM EDT HEALTH[facility]ARE LAB Device ID [id number] 11/06/2024 2:09 PM EDT [facility]ALTH[facility]ARE LAB Specimen Type POC Capillary 11/06/2024 2:09 PM EDT [facility] Blood Capillary blood specimen / Unknown 11/06/2024 2:08 PM EDT 11/06/2024 2:09 PM EDT us Nathaly Nowak MD LAB POINT OF CARE TE ST DOCKED DEVICE UNSOLICITED RESULTS Final Result Performing Organization Address City/State/[facility] Co de Phone Number [facility]ARE LAB [address] [place] [address] * (ABNORMAL) POCT glucose meter (11/06/2024 12:27 [...] Comment 11/06/2024 12:28 PM EDT [facility]ALTH[facility]ARE LAB [employer] Layout Designer ID Jacinta Galloway 11/06/2024 12:28 PM EDT HEALTHCARE LAB Device ID [id number] 11/06/2024 12:28 PM EDT HEALTH[facility]ARE LAB Specimen Type POC Capillary 11/06/2024 12:28 PM EDT [facility]ALTH[facility]ARE [facility] Blood Capillary blood specimen / Unknown 11/06/2024 12:27 PM EDT 11/06/2024 12:28 PM EDT us Nathaly Nowak MD LAB POINT OF CARE TE ST DOCKED DEVICE UNSOLICITED RESULTS Final Result [facility] [address] [place] [address] * (ABNORMAL) Tissue Culture and Gram Stain (11/06/2024 11:34 AM EDT) Culture Moderate Growth 7:35 AM EDT [facility] Culture 2+ Enterobacter cloacae complex(A) ANGÉLICA 11/15/2024 7:35 AM EDT [facility] Comment: This isolate has been identified using the FDA Approved [employer] System The organism value for this result has been updated. These results have been appended to the previously preliminary verified report. Edited result: Previously reported as Gram Negative Jesus on 11/07/2024 at 1434 EDT. Culture 2+ Streptococcus mitis/oralis group(A) ANGÉLICA 11/15/2024 7:35 AM EDT [facility] Comment: This isolate has been identified using the FDA Approved [employer] System The organism value for this result has been updated. These results have been appended to the previously preliminary verified report. Culture 2+ Pasteurella stomatis(A) ANGÉLICA 11/15/2024 7:35 AM EDT [facility] Comment: This result was determined by [employer] tof mass spectrometry using the [employer] database and is for research use only. [...] GENERAL ORDE LAM Edited Result - Final [facility] [address] [place] [address] * (ABNORMAL) Anaerobic Culture (11/06/2024 11:34 AM EDT) Culture No anaerobes isolated 11/14/2024 1:25 PM EDT [facility] Culture Staphylococcus pseudintermedius( A) 11/14/2024 1:25 PM EDT [facility] Comment: This result was determined by [employer] tof mass spectrometry using the [employer] database and is for research use only. [...] Edited Result - Final Performing Organization Address City/[facility] Co de Phone Number [facility] [address] [place] [address] * (ABNORMAL) Routine Culture and Gram Stain (11/06/2024 11:29 AM EDT) Culture Moderate Growth 5:29 PM EDT [facility] Culture Enterobacter cloacae complex(A) 11/08/2024 5:29 PM EDT [facility] Comment: This isolate has been identified using the FDA Approved [employer] System For susceptibility results refer to: - [id number] The organism value for this result has [...] ATIYA FRITZ Final Result Performing Organization Address [facility] Co de Phone Number [facility] [address] [place] [address] * Fungal Culture, Routine (11/06/2024 11:29 AM EDT) Culture No Fungal Growth at 1 Week 11/13/2024 8:29 AM EDT [facility] Swab Topography unknown / Unknown 11/06/2024 11:29 AM EDT 11/06/2024 12:19 PM EDT Comment:Pre-op diagnosis: Surgical wound infection [T81.49XA] Nathaly Nowak MD LAB MICROBIOLOGY - [facility] Final Result [facility] [address] [place] [address] * (ABNORMAL) Anaerobic Culture (11/06/2024 11:29 AM EDT) Culture No anaerobes isolated 11/14/2024 1:25 PM EDT [facility] Culture Streptococcus mitis/oralis group(A) 11/14/2024 1:25 PM EDT [facility] Comment: This result was determined by [employer] tof mass spectrometry using the [employer] database and is for research use only. [...] has been identified using the FDA Approved [employer] System This is an appended report. [...] Edited Result - Final Performing Organization Address [facility] Co de Phone Number [facility] [address] [place] [address] * Routine Culture and Gram Stain (11/06/2024 [...] ORDE LAM Final Result Performing Organization Address [facility] Co de Phone Number [facility] [address] [place] [address] * Fungal Culture, Routine (11/06/2024 11:28 AM EDT) Culture No Fungal Growth at 1 Week 11/13/2024 8:29 AM EDT [facility] Swab Topography unknown / Unknown 11/06/2024 11:28 AM EDT 11/06/2024 12:20 PM EDT Comment:Pre-op diagnosis: Surgical wound infection [T81.49XA] Nathaly Nowak MD LAB MICROBIOLOGY - GENERAL ORDE [facility]ABONEIDA Final Result Performing Organization Address [facility] Co de Phone Number [facility] [address] [place] [address] * Anaerobic Culture (11/06/2024 11:28 AM EDT) Culture No growth at day 4 11/13/2024 12:53 PM EDT [facility] Swab Topography unknown / Unknown 11/06/2024 11:28 AM EDT 11/06/2024 12:20 PM EDT Comment:Pre-op diagnosis: Surgical wound infection [T81.49XA] Nathaly Nowak MD LAB MICROBIOLOGY - [facility] Final Result Performing Organization Address [facility] [place] [address] * (ABNORMAL) POCT glucose meter (11/06/2024 10:16 AM EDT) Pathologist [facility] POCT Glucose 194(H) 74 - 99 mg/dL [...] 11/06/2024 10:18 AM EDT [facility] [employer] Layout Designer ID Lacy Griffin 11/07/19 25 10:18 AM EDT HEALTHCARE LAB Device ID [id number] 11/06/2024 10:18 AM EDT [facility]ALTH[facility]ARE LAB Specimen Type POC Capillary 11/06/2024 10:18 AM EDT [facility]ALTH[facility] Blood Capillary blood specimen / Unknown 11/06/2024 10:16 AM EDT 11/06/2024 10:18 AM EDT Nathaly Nowak MD LAB POINT OF CARE TE ST DOCKED DEVICE UNSOLICITED RESULTS Final Result Performing Organization Address [facility] de Phone Number [facility] [facility] [address] [place] [address] * (ABNORMAL) POCT glucose meter (11/06/2024 5:58 [...] Comment 11/06/2024 6:01 AM EDT [facility] [employer] Layout Designer ID Raj Laird 11/07/19 6:01 AM EDT [facility] Device ID [id number] 11/06/2024 6:01 AM EDT [facility] Specimen Type POC Capillary 11/06/2024 6:01 AM EDT [facility] Blood Capillary blood specimen / Unknown 11/06/2024 5:58 AM EDT 11/06/2024 6:01 AM EDT Nathaly Nowak MD LAB POINT OF CARE TE ST DOCKED DEVICE UNSOLICITED RESULTS Final Result Performing Organization Address [facility] Co de Phone Number [facility] [address] [place] [address] * (ABNORMAL) POCT glucose meter (11/06/2024 5:36 AM EDT) Pathologist [facility] POCT Glucose 202(H) 74 - 99 mg/dL [...] Comment 11/06/2024 5:38 AM EDT [facility] [employer] Layout Designer ID Shahid Sanches 11/06/2024 5:38 AM EDT [facility] Device ID [id number] 11/06/2024 5:38 AM EDT [facility] Specimen Type POC Capillary 11/06/2024 5:38 AM EDT [facility] Blood Capillary blood specimen / Unknown 11/06/2024 5:36 AM EDT 11/06/2024 5:38 AM EDT us Nathaly Nowak MD LAB POINT OF CARE TE ST DOCKED DEVICE UNSOLICITED RESULTS Final Result Performing Organization Address [facility] Co de Phone Number [facility] [address] [place] [address] * (ABNORMAL) Hemoglobin A1c (11/06/2024 1:07 AM [...] Adults <6.0% Children and Adolescents <7.5% Source: [place]. Standards of medical care in diabetes,2017. Diabetes Care.2017:40 (suppl 1):S1-S135. us Nathaly Nowak MD LAB BLOOD ORDERABLES Final Resu lt Performing Organization Address [facility]/ZIP Co de Phone Number [facility] [address] [place] [address] * Blood Culture (Aerobic/Anaerobet Set) (11/06/2024 1:07 AM EDT) Culture No growth at day 5 11/11/2024 2:49 AM EDT [facility] Blood Structure of right hand / Unknown Venipuncture / Unknown 11/06/2024 1:07 AM EDT 11/06/2024 2:36 AM EDT Nathaly Nowak MD LAB MICROBIOLOGY - GENERAL ORDE RABLES Final Result Performing Organization Address [facility] Co de Phone Number [facility] [address] [place] [address] * Blood Culture (Aerobic/Anaerobet Set) (11/06/2024 1:07 AM EDT) Culture No growth at day 5 11/11/2024 3:01 AM EDT [facility] Blood Structure of antecubital vein / Unknown Venipuncture / Unknown 11/06/2024 1:07 AM EDT 11/06/2024 2:36 AM EDT Nathaly Nowak MD LAB MICROBIOLOGY - GENERAL ORDE LAM Final Result Performing Organization Address [facility] de Phone Number [facility] [address] [place] [address] * (ABNORMAL) Basic metabolic panel (11/06/2024 1:07 [...] Resu lt [facility] [address] [place] [address] * Phosphorus (11/06/2024 1:07 AM EDT) Phosphorus, Plasma 3.2 2.5 - 4.5 mg/dL 11/06/2024 1:41 AM EDT [facility] Blood Venous blood specimen / Unknown Venipuncture / Unknown 11/06/2024 1:07 AM EDT 11/06/2024 1:12 AM EDT us Nathaly Nowak MD LAB BLOOD ORDERABLES Final Resu lt [facility] [address] [place] [address] * Magnesium (11/06/2024 1:07 AM EDT) Magnesium, Plasma 2.2 1.9 - 2.4 mg/dL 11/06/2024 1:41 AM EDT [facility] Blood Venous blood specimen / Unknown Venipuncture / Unknown 11/06/2024 1:07 AM EDT 11/06/2024 1:12 AM EDT us Nathaly Nowak MD LAB BLOOD ORDERABLES Final Resu lt [facility] [address] [place] [address] * (ABNORMAL) CBC (11/06/2024 1:07 AM EDT) [...] Final Resu lt Performing Organization Address [facility]/ZIP Co de Phone Number [facility] [address] [place] [address] * Gold Top (11/06/2024 12:58 AM EDT) Extra Hold for add-ons 11/06/2024 3:21 AM EDT [facility] Comment:Auto resulted. Blood Venous blood specimen / Unknown 11/06/2024 12:58 AM EDT 11/06/2024 1:13 AM EDT us Nathaly Nowak MD LAB BLOOD ORDERABLES Final Resu lt Performing Organization Address [facility]/ZIP Co de Phone Number [facility] [address] [place] [address] * Gold Top (11/06/2024 12:58 AM EDT) Extra Hold for add-ons 11/06/2024 3:21 AM EDT [facility] Comment:Auto resulted. Blood Venous blood specimen / Unknown 11/06/2024 12:58 AM EDT 11/06/2024 1:13 AM EDT us Nathaly Nowak MD LAB BLOOD ORDERABLES Final Resu lt Performing Organization Address [facility] Co de Phone Number [facility] [address] [place] [address] * Light Green Top (11/06/2024 12:58 AM EDT) Extra Hold for add-ons 11/06/2024 3:21 AM EDT [facility] Comment:Auto resulted. Blood Venous blood specimen / Unknown 11/06/2024 12:58 AM EDT 11/06/2024 1:13 AM EDT us Nathaly Nowak MD LAB BLOOD ORDERABLES Final Resu lt Performing Organization Address [facility] Co de Phone Number [facility] [address] [place] [address] * Light Blue Top (11/06/2024 12:58 AM EDT) Extra Hold for add-ons 11/06/2024 3:21 AM EDT [facility] Comment:Auto resulted. Blood Venous blood specimen / Unknown 11/06/2024 12:58 AM EDT 11/06/2024 1:13 AM EDT us Nathaly Nowak MD LAB BLOOD ORDERABLES Final Resu lt Performing Organization Address [facility] de Phone Number [facility] [address] [place] [address] * Light Blue Top (11/06/2024 12:58 AM EDT) Extra Hold for add-ons 11/06/2024 3:21 AM EDT [facility] Comment:Auto resulted. Blood Venous blood specimen / Unknown 11/06/2024 12:58 AM EDT 11/06/2024 1:13 AM EDT Result [facility] us Nathaly Nowak MD LAB BLOOD ORDERABLES Final Resu lt Performing Organization Address [facility] de Phone Number [facility] [address] [place] [address] * (ABNORMAL) POCT glucose meter (11/06/2024 12:45 AM EDT) POCT Glucose 204(H) 74 - 99 mg/dL 11/06/2024 12:48 AM EDT [facility] Comment:Accuracy of a glucos e [...] Comment 11/06/2024 12:48 AM EDT [facility] [employer] Layout Designer ID Raj Laird 11/07/19 12:48 AM EDT [facility] Device ID [id number] 11/06/2024 12:48 AM EDT [facility] Specimen Type POC Capillary 11/06/2024 12:48 AM EDT [facility] Blood Capillary blood specimen / Unknown 11/06/2024 12:45 AM EDT 11/06/2024 12:48 AM EDT us Nathaly Nowak MD LAB POINT OF CARE TE ST DOCKED DEVICE UNSOLICITED RESULTS Final Result [facility] [address] [place] [address] documented in this encounter Visit Diagnoses Diagnosis [...] needed, Starting on Mon11/06/24 at 0031, Until [facility] 11/14/24 at 1804, Routine, line care [...] needed, Starting on Mon11/06/24 at 0753, Until [facility] 11/14/24 at 1804, Routine, On Unit [...] RN) [id number] (Not Given - Provider: Jonathan aVle RN - Reason: Order parameters not met) [...] Provider: Devora Camarenab)[id number] (Given - Provider: Devora Camarenab)203 (Given - [...] documented as of this encounter Care Teams Consulting Sme Relationship Specialty Start Date End Date Asad Victor MD [address] [place] [address] PCP - General 10/07/22 documented as of this encounter
--- OUTSIDE RECORDS SUMMARY | 2024-11-06 10:47 | XMS_ITS | Encounter Summary ---
Author Organization Healthcare Address [address] [place] [address] Care Team Providers Care Protection Manager Name Role Phone Asad Victor MD Primary Care Provider + [phone] Reason for Visit * Auth/Cert (Routine) Specialty Diagnoses / Procedures Referred By Contac t Referred To Contact Diagnoses Wound infection Post-op Vasc Sx wounds - sx on 10/17 at Nathaly Nowak MD [address] [facility] [address] [place] [address] Phone: tel: fax: [facility] Emergency Department [address] [place] [address] Phone: tel: Referral ID Status Reason Start Date Expiration Date Visits Re quested Visits Authorized [id number] 1 1 Encounter Details Date Type Department Care Team (Late st Contact Info) Description 11/06/2024 10:47 AM EDT Anesthesia Event [facility] OPERATING ROOM [address] [place] [address] Bill Sue MD [address] [place] [address] Sabrina Mckeon PA [address] [facility] [address] [place] [address] Anesthesia Record Procedure Summary Procedure [...] drink first t dino in the morning (EYE-TELEPHONE OPERATOR CHIEF) to steady your nerves or to get [...] and Staff Patient location during procedure: OR SYSTEMS SOFTWARE SPECIALIST: Asad Lechuga CRNA, DNP Performed: SYSTEMS SOFTWARE SPECIALIST Patient Condition Indications for airway management: [...] placement (Left) Location: [facility] OR 16 / [place] OR Surgeons: Nathaly Nowak MD [facility] Mono Ana Bobby is a 64 [...] Abnormal Ventricular Rate 85 Atrial Rate 85 MI Interval 146 QRSD Interval 128 QT Interval 390 QTC Interval 464 P [place] 52 R [place] 263 T Wave [place] 57 Diagnosis Atrial-sensed ventricular-paced rhythm Diagnosis Biventricular [...] is no recent study available for direct jbbw-qf-belx comparison. [facility]: Pre-operative CIED Report Assessment and Sara- Procedural Reommendations: Name: Mono Bobby Date: 10/17/2024 : 1960 Age: 64 y.o. Patient has a Design Verification Engineer: Berger EBD SPECIAL EDUCATION TEACHER-PM Remaining battery longevity adequate. Lead integrity test [...] RVR s/p CABG), CAD (CAD s/p multiple TX's and 3V CABG02/2019, 2 stents prior to CABG), carotid artery disease (carotid artery disease s/p R CEA 2016), dysrhythmias (3rd degree AV block EBD SPECIAL EDUCATION TEACHER-P placed 08/2023 for Wenkeback with 11 sec pause), hyperlipidemia, pacemaker and PVD. Does not have angina, CHF, murmur, orthopnea, syncope or valvular heart disease. hypertension: Cardio additional comments: Follows with OSH Card last seen 09/25/24 ([place]) . Respiratory: home oxygen (2L). no asthma: [...] ENDARTERECTOMY N/A 2017 Endarterectomy Carotid Artery from [employer] CORONARY ANGIOPLASTY Left Coronary Angiography With Concomitant Left Heart Catheterization from [employer] CORONARY ARTERY BYPASS GRAFT N/A 2018 3V ELBOW SURGERY Right ENDARTERECTOMY Left 10/17/2024 common/SFA/Profunda thromboendarterectomy, EIA/REPLANTING MACHINE CREW stent HERNIA REPAIR KNEE ARTHROSCOPY Left VASCULAR SURGERY Left 09/21/2024 REPLANTING MACHINE CREW pseudoaneurym injection [5] Social History Tobacco Use [...] Description 11/26/2024 2:00 PM EDT Hospital Encounter [facility] Vascular Lab [address] [place] [address] 11/26/2024 2:30 PM EDT Hospital Encounter [facility] Vascular Lab [address] [place] [address] 11/26/2024 3:20 PM EDT Office Visit [facility] [address] [place] [address] Elisabet Schuster PA [address] [facility] [address] [place] [address] 11/29/2024 2:30 PM EDT Office Visit [place] [address] [place] [address] Oscar Appiah MD [address] [facility] [address] [place] [address] documented as of this encounter Goals Goal Patient Goal Type Associated Problems Recent Progress Patient-Stated? Author Autogenera louise Goal Care Plan Autogenerated Problem No Ekta Arnett documented as of this encounter Procedures Procedure Name Priority Date/Time Associated Diagnosis Comments PB ANESTHESIA PLACEHOLDER Routine 11/06/2024 10:58 AM EDT MI AN ELECTIVE ENDOTRACHEAL AIRWAY Routine 11/06/2024 10:58 AM EDT documented in this encounter Results * MI AN ELECTIVE ENDOTRACHEAL AIRWAY, PB ANESTHESIA PLACEHOLDER (11/06/2024 10:58 AM EDT) Narrative Asad Lechuga CRNA, DNP - 11/06/2024 10:58 AM EDT Asad Lechuga CRNA, DNP 11/06/2024 11:05 AM Airway Date/Time: 11/06/2024 10:58 AM Reason: elective Airway not difficult General Information and Staff Patient location during procedure: OR SYSTEMS SOFTWARE SPECIALIST: Asad Lechuga CRNA, DNP Performed: ISH [...] documented as of this encounter Care Teams Protection Manager Relationship Specialty Start Date End Date Asad Victor MD [address] [place] [address] PCP - General 10/07/22 documented as of this encounter
--- OUTSIDE RECORDS SUMMARY | 2024-11-24 07:58 | XMS_ITS | Encounter Summary ---
Author Organization Healthcare Address [address] [place] [address] Care Team Providers Care Amalgamator Name Role Phone Asad Victor MD Primary Care Provider + [phone] Encounter Details Date Type Department Care Team (Late st Contact Info) Description 09/21/2024 Orders Only External Location [address] [place] [address] Provider, External Social History Tobacco Use Types [...] drink first t dino in the morning (EYE-RANGE CONSERVATIONIST) to steady your nerves or to get [...] Description 11/26/2024 2:00 PM EDT Hospital Encounter [facility] [address] [place] [address] 11/26/2024 2:30 PM EDT Hospital Encounter [facility] [address] [place] [address] 11/26/2024 3:20 PM EDT Office Visit [facility] [address] [facility] 5th Floor [address] [place] [address] Elisabet Schuster PA [address] [facility] [address] [place] [address] 11/29/2024 2:30 PM EDT Office Visit [place] [address] [place] [address] [place] [address] [place] [address] [address] [place] [address] documented as of this encounter [...] documented as of this encounter Care Teams Amalgamator Relationship Specialty Start Date End Date Asad Victor MD [address] [place] [address] PCP - General 10/07/22 documented as of this encounter
--- OUTSIDE RECORDS SUMMARY | 2024-11-24 07:58 | XMS_ITS | Encounter Summary ---
Author Organization Healthcare Address [address] [id number] Care Team Providers Care Recreational Therapy Technician Name Role Phone Asad Victor MD Primary Care Provider + [phone] Reason for Visit * Reason Onset Date Comments HCN Clinical Concern/Question 11/15/2024 Encounter Details Date Type Department Care Team (Late st Contact Info) Description 11/15/2024 Telephone [facility] [address] [facility] 5th Floor [address] [place] [address] Nathaly Nowak MD [address] [facility] [address] [place] [address] HCN Clinical Concern/Question Social History [...] drink first t dino in the morning (EYE-CLEAN RICE GRADER AND REEL TENDER) to steady your nerves or to [...] with info. Thank you Best contact number: [phone] (mobile) Optimal time of day to reach caller: ANYTIME Additional comments/information from caller: None Note: Please do not reply to this message. Follow-up communication and further actions as a result of this message need to be communicated with the patient directly, if the patient is not active onMyChart. If the patient is active on MyChart, they will receive notification of the communication/outcome via [employer]. documented in this encounter Plan of Treatment Upcoming Encounters Date Type Department Care Team (Late st Contact Info) Description 11/26/2024 2:00 PM EDT Hospital Encounter [facility] [address] [place] [address] 11/26/2024 2:30 PM EDT Hospital Encounter [facility] [address] [place] [address] 11/26/2024 3:20 PM EDT Office Visit [facility] [address] [facility] 5th Floor Wing [address] [place] [address] Elisabet Schuster PA [address] [facility] [address] [place] [address] 11/29/2024 2:30 PM EDT Office Visit [facility] [address] [place] [address] Oscar Appiah MD [address] [facility] [address] [place] [address] documented as of this encounter Goals Goal [...] documented as of this encounter Care Teams Recreational Therapy Technician Relationship Specialty Start Date End Date Asad Victor MD [address] [place] [address] PCP - General 10/07/22 documented as of this encounter
--- OUTSIDE RECORDS SUMMARY | 2024-11-24 07:59 | XMS_ITS | Encounter Summary ---
Author Organization [facility] Address [address] [place] [address] Care Team Providers Care Branch Examiner Name Role Phone Asad Victor MD Primary Care Provider + [phone] Encounter Details Date Type Department Care Team [...] drink first t dino in the morning (EYE-BAND INSTRUMENT MAKER) to steady your nerves or to [...] 11/26/2024 2:00 PM EDT Hospital Encounter [facility] [address] 5th Floor [address] [place] [address] 11/26/2024 2:30 PM EDT Hospital Encounter [facility] [address] 5th Floor [address] [place] [address] 11/26/2024 3:20 PM EDT Office Visit [facility] [address] 5th [address] [place] [address] Elisabet Schuster, PA [address] [place] [address] 11/29/2024 2:30 PM EDT Office Visit [facility] [address] [facility] [place] [address] Oscar Appaih MD [address] [facility] [address] [place] [address] documented as of this encounter [...] documented as of this encounter Care Teams Branch Examiner Relationship Specialty Start Date End Date Asad Victor MD [address] [place] [address] PCP - General 10/07/22 documented as of this encounter
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
--- OUTSIDE RECORDS SUMMARY | 2024-11-24 08:00 | XMS_ITS | Encounter Summary ---
Author Organization Healthcare Address [address] [id number] Care Team Providers Care Utility Locate Technician Name Role Phone Asad Victor MD Primary Care Provider + [phone] Encounter Details Date Type Department Care Team (Late st Contact Info) Description 10/22/2024 Telephone Vascular Surgery [address] [place] [address] Alison Beltrán, PRESS OPERATOR PRINTING, DNP [address] [facility] [address] [place] [address] Social History Tobacco Use Types Packs/Day Years [...] living in a intermediate (including now)? No 10/18/2024 CAGE ASSESSMENT Answer [...] first t dino in the morning (EYE-SOIL SAMPLER) to steady your nerves or to get [...] Notes * Telephone Encounter - Alison Beltrán, PRESS OPERATOR PRINTING, DNP - 10/22/2024 11:39 AM EDT Returned patient call. Patient s/p left common/superficial/profunda femoral thromboendarterectomy with bovine patch repair and left external iliac artery/LOG CHECK SCALER stent with Dr Gautam on 10/17/24. Patient [...] Encounter [facility] [address] [place] [address] 11/26/2024 2:30 PM EDT Hospital Encounter [facility] [address] [place] [address] 11/26/2024 3:20 PM EDT Office Visit [facility] [address] [place] [address] Elisabet Schuster, GLENDA [address] [facility] [address] [place] [address] 11/29/2024 2:30 PM EDT Office Visit [facility] [address] [place] [address] Oscar Appiah MD [address] [facility] [address] [place] [address] documented as of this encounter [...] documented as of this encounter Care Teams Utility Locate Technician Relationship Specialty Start Date End Date Asad Victor MD [address] [place] [address] PCP - General 10/07/22 documented as of this encounter
--- OUTSIDE RECORDS SUMMARY | 2024-11-24 08:01 | XMS_ITS | Encounter Summary ---
Author Organization Healthcare Address [address] [place] [address] Care Team Providers Care Conduit Cleaner Name Role Phone Asad Victor MD Primary Care Provider + [phone] Encounter Details Date Type Department Care Team (Late st Contact Info) Description 10/17/2024 Orders Only External Location [address] [place] [address] Provider, External Social History Tobacco Use Types [...] drink first t dino in the morning (EYE-OCCUPATIONAL REHABILITATION AIDE) to steady your nerves or to get rid of a hangover? 0 10/18/2021 CAGE Questionnaire Score 0 022 Utilities Answer Date Recorded In the past 12 months has th e [employer], gas, oil, or water [employer] threatened to shut off services in your [...] Encounter [facility] [address] [facility] 5th Floor Wing D, [address] [place] [address] 11/26/2024 2:30 PM EDT Hospital Encounter [facility] [address] [facility] 5th Floor Wing [address], [address] [place] [address] 11/26/2024 3:20 PM EDT Office Visit [facility] [address] [facility] 5th Floor Wing D, [address] [place] [address] Elisabet Schuster PA [address] [place] [address] 11/29/2024 2:30 PM EDT Office Visit [facility] [address] [place] [address] sOcar Appiah MD [address] [facility] [address] [place] [address] documented as of this encounter [...] documented as of this encounter Care Teams Conduit Cleaner Relationship Specialty Start Date End Date Asad Victor MD [address] [place] [address] PCP - General 10/07/22 documented as of this encounter
--- OUTSIDE RECORDS SUMMARY | 2024-11-24 08:01 | XMS_ITS | Encounter Summary ---
Author Organization [facility] Address [address] [place] [address] Care Team Providers Care Digital Content Manager Name Role Phone Asad Victor MD Primary Care Provider + [phone] Encounter Details Date Type Department Care Team [...] drink first t dino in the morning (EYE-STAGE SET UP WORKER) to steady your nerves or to [...] Description 11/26/2024 2:00 PM EDT Hospital Encounter [facility] [address] [place] [address] 11/26/2024 2:30 PM EDT Hospital Encounter [facility] [address] [place] [address] 11/26/2024 3:20 PM EDT Office Visit [facility] [address] [facility] 5th Floor Wing D, [address] [place] [address] Elisabet Schuster, PA [address] [place] [address] [place] [address] 11/29/2024 2:30 PM EDT Office Visit [address] [place] [address] Oscar Appiah MD [address] [place] [address] [address] [place] [address] documented as of this encounter [...] documented as of this encounter Care Teams Digital Content Manager Relationship Specialty Start Date End Date Asad Victor MD [address] [place] [address] PCP - General 10/07/22 documented as of this encounter
--- OUTSIDE RECORDS SUMMARY | 2024-11-24 08:01 | XMS_ITS | Encounter Summary ---
Author Organization [facility] Address [address] [place] [address] Care Team Providers Care Metal Pourer Name Role Phone Asad Victor MD Primary Care Provider + [phone] Encounter Details Date Type Department Care Team [...] drink first t dino in the morning (EYE-KINDERGARTEN TEACHER ASSISTANT) to steady your nerves or to [...] [facility] [address] 5th Floor Wing [address], [address] [place] [address] 11/26/2024 2:30 PM EDT Hospital Encounter [facility] [address] 5th Floor Wing [address], [address] [place] [address] 11/26/2024 3:20 PM EDT Office Visit [facility] [address] 5th Floor Wing [address], [address] [place] [address] Elisabet Schuster, PA [address] [place] [address] 11/29/2024 2:30 PM EDT Office Visit [facility] [address] [facility] [place] [address] Oscar Appiah MD [address] [facility] [address] [place] [address] documented as of this encounter [...] documented as of this encounter Care Teams Metal Pourer Relationship Specialty Start Date End Date Asad Victor MD [address] [place] [address] PCP - General 10/07/22 documented as of this encounter
--- OUTSIDE RECORDS SUMMARY | 2024-11-24 08:01 | XMS_ITS | Encounter Summary ---
Author Organization Healthcare Address [address] [place] [address] Care Team Providers Care Train Operations Supervisor Name Role Phone Asad Victor MD Primary Care Provider + [phone] Encounter Details Date Type Department Care Team (Late st Contact Info) Description 11/05/2024 Orders Only External Location [address] [place] [address] Provider, External Social History Tobacco Use Types [...] the past 12 m [facility], were you homeless or living in a [...] drink first t dino in the morning (EYE-PIERCER) to steady your nerves or to get rid of a hangover? 0 10/18/2021 CAGE Questionnaire Score 0 022 Utilities Answer Date Recorded In the past 12 months has th e [employer], gas, oil, or water company threatened to [...] 11/26/2024 2:00 PM EDT Hospital Encounter [facility] [address] [facility] 5th Floor Wing D, [address] [place] [address] 11/26/2024 2:30 PM EDT Hospital Encounter [facility] [address] [facility] 5th Floor Wing [address], [address] [place] [address] 11/26/2024 3:20 PM EDT Office Visit [facility] [address] 5th Floor [address] [place] [address] Elisabet Schuster PA [address] [place] [address] 11/29/2024 2:30 PM EDT Office Visit [facility] [address] [place] [address] Oscar Appiah MD [address] [facility] [address] [place] [address] documented as of this encounter [...] as of this encounter Care Teams Train Operations Supervisor Relationship Specialty Start Date End Date Asad Victor MD [address] [place] [address] PCP - General 10/07/22 documented as of this encounter
--- OUTSIDE RECORDS SUMMARY | 2024-11-24 08:01 | XMS_ITS | Encounter Summary ---
Author Organization [facility] Address [address] [place] [address] Care Team Providers Care Copywriter Name Role Phone Asad Victor MD Primary Care Provider + [phone] Encounter Details Date Type Department Care Team [...] drink first t dino in the morning (EYE-CRANE LADLE PERSON) to steady your nerves or to get [...] Description 11/26/2024 2:00 PM EDT Hospital Encounter [facility] [address] [place] [address] 11/26/2024 2:30 PM EDT Hospital Encounter [facility] [address] 5th Floor [address] [place] [address] 11/26/2024 3:20 PM EDT [facility] [address] 5th [address] [place] [address] Elisabet Schuster, PA [address] [facility] [address] [place] [address] 11/29/2024 2:30 PM EDT Office Visit [facility] [address] [facility] [place] [address] Oscar Appiah MD [address] [facility] [address] [place] [address] documented as of this encounter [...] documented as of this encounter Care Teams Copywriter Relationship Specialty Start Date End Date Asad Victor MD [address] [place] [address] PCP - General 10/07/22 documented as of this encounter
--- OUTSIDE RECORDS SUMMARY | 2024-11-24 08:02 | XMS_ITS | Encounter Summary ---
Author Organization Healthcare Address [address] [place] [address] Care Team Providers Care Adoption Specialist Name Role Phone Asad Victor MD Primary Care Provider + [phone] Encounter Details Date Type Department Care Team (Late st Contact Info) Description 11/15/2024 Clinical Support [address] [place] [address] Charly Orlando, PharmD [address] [place] [address] [address] [place] [address] Social History Tobacco Use Types [...] first t dino in the morning (EYE-MANAGER SHIPPING) to steady your nerves or to get rid of a hangover? 0 10/18/2021 CAGE Questionnaire Score 0 022 Utilities Answer Date Recorded In the past 12 months has th e [employer], gas, oil, or water company threatened to [...] 11/26/2024 2:00 PM EDT Hospital Encounter [facility] [address] 5th Floor [address], [address] [place] [address] 11/26/2024 2:30 PM EDT Hospital Encounter [facility] [address] 5th Floor [address] [place] [address] 11/26/2024 3:20 PM EDT Office Visit [facility] [address] 5th [address] [place] [address] Elisabet Schuster PA [address] [place] [address] 11/29/2024 2:30 PM EDT Office Visit [facility] [address] [facility] [place] [address] Oscar Appiah MD [address] [facility] [address] [place] [address] documented as of this encounter [...] as of this encounter Care Teams Adoption Specialist Relationship Specialty Start Date End Date Asad Victor MD [address] [place] [address] PCP - General 10/07/22 documented as of this encounter
[2024-11-24] MEDS: ERTAPENEM SODIUM 1 GM in 0.9 % SODIUM CHLORIDE 50 ML IV (08:46)
[2024-11-24] MEDS: SODIUM CHLORIDE 0.9% IV (09:16)
[2024-11-24] MEDS: MICAFUNGIN SODIUM IV (09:16)
== END 2024-11-24 10:15 | disposition home or self-care (01) ==
LOC: INF 07:56
PROVIDERS: PCP Family Medicine; Visit Provider Student in an Organized Health Care Education/Training Program
DX: T14.8XXA Other injury of unspecified body region, initial encounter (principal); L08.9 Local infection of the skin and subcutaneous tissue, unspecified
CPT/HCPCS: 96365; 96367; J1335; J2248

== ENCOUNTER 2024-11-25 08:08 | Outpatient (CLI) | payer MEDICARE, OTHER, SELFPAY ==
--- OUTSIDE RECORDS SUMMARY | 2024-10-11 10:15 | XMS_ITS | Encounter Summary ---
Author Organization [facility] Address [address] [place] [address] Care Team Providers Care Surgical Processor Name Role Phone Asad Victor MD Primary Care Provider + [phone] Encounter Details Date Type Department Care Team (Latest Contact Info) Description 10/11/2024 10:15 AM EDT Pre-Admission Testing [facility] [address], [address] [place] [phone] Preop testing (Primary Dx) Anesthesia Record Procedure Summary Procedure Name Responsible Anesthesiologist Anesthesia Start Time Anesthesia Stop Time CREATION, BYPASS, ARTERIAL, FEMORAL TO POPLITEAL (Left: Leg Upper) Maria Fernanda Mccallum MD 10/17/24 0751 10/17/24 1324 Events Date Time Event Comment 10/17/2024 0751 An Start The patient was reevaluated immediately before sedation and remains eligible for anesthesia plan. 0752 An Start Data 0753 In Room 0800 An Induction The patient was reevaluated immediately before moderate or deep sedation use and before anesthesia induction. 0803 An Intubation 0824 Anesthesia Ready 0848 ACT Performed 101 0852 Proc Start 1007 ACT Performed ACT 244 1042 ACT Performed 206 1115 ACT Performed 252 1146 ACT Performed 175 1229 ACT Performed 211 - no order s given 1311 An Extubation 1311 Proc Fin 1315 an stop data 1317 Out of Room 1322 Handoff to Receiving I compl eted my handoff to the receiving clinician during which we: 1. Identified the patient 2. Identified the responsible provider 3. Reviewed the pertinent medical history 4. Discussed the surgical course 5. Reviewed intra-op anesthesia management and issues during anesthesia 6. Set expectations for post-procedure period 7. Allowed opportunity for questions and acknowledgement of understanding. 1324 An Stop Meds * Agents No agents on file. * Blood No blood administrations on file. Lines, Drains, and Airways Type Details Placement Removal Wound 10/17/24; 0856; Yes; Surgical; Open Surg; Groin; Left 10/17/24 0856 by Brad Ewing RN Wound 10/17/24; 0900; Yes; Surgical; Open Surg; Left, Lower 10/17/24 0900 by Brad Ewing RN Peripheral IV Placement Date: 09/25 07/19; Placement Time: 0715; Catheter Size: 20 G; Orientation: Right, Posterior; Location: Hand; Site Prep: Chlorhexidine ; Local Anesth: [place]; Technique: Anatomical landmarks; Inserted by: CHRISTIAN Acuna; Insertion Attempts: 2; Patient Tolerance: Tolerated well; Removal Date: 10/19/24; Removal Time: 1130 10/17/24 0715 by Clare Vivas RN 10/19/24 1130 by Keyla Chow ETT Placement Date: 09/25 07/19; Placement Time: 0803 (created via procedure documentation); Mask Ventilation: 2; Technique: Direct laryngoscopy; Type: ETT - single; Single Lumen Tube Size: 7.5 mm; Cuffed: Yes; Laryngoscope: Prince; Blade Size: 3; Location: Oral; Grade View: Grade IIa; Insertion Attempts: 1; Placement Verification: Auscultation, Capnometry; Airway Comments: Atraumatic. No change to dentition. ; Placed by: ISH; Removal Date: 10/17/24; Removal Time: 1311 10/17/24 0803 by Jenna Lopez CRNA 10/17/24 1311 by Jenan Lopez CRNA Urethral Catheter Placement Date: 09/25 07/19; Placement Time: 0805; Inserted by: brad ewing; Type: Temperature probe; Size: 16 Fr.; Balloon Size: 10 mL; Urine Returned: Yes; Removal Date: 10/18/24; Removal Time: 0850 10/17/24 0805 by Brad Ewing RN 10/18/24 0850 by Emilia Alonso RN Arterial Line Placement Date: 09/25 07/19; Placement Time: 0825 (created via procedure documentation); Size: 20 G; Orientation: Right; Location: Axillary; Inserted by: CORRESPONDENCE SCHOOL TEACHER; Securement: Sutured; Patient Tolerance: Tolerated well; Removal Date: 10/17/24; Removal Time: 14210/17/24824 by Jenna Lopez CRNA 10/17/241424 by Keisha Waller RN Peripheral IV Placement Date: 09/25 07/19; Placement Time: 851 (created via procedure documentation); Orientation: Left; Location: Forearm; Local Anesth: None; Technique: Ultrasound guidance; Inserted by: Maria Fernanda Mccallum MD; Insertion Attempts: 1; Removal Date: 10/19/24; Removal Time: 11310/17/24 08 by Maria Fernanda Mccallum MD 10/19/24 113 by Keyla Chow documented in this encounter Social History Tobacco Use Types Packs/Day Years Used Date Smoking Tobacco: Former Cigarettes Passive Smoke Exposure: Past Smokeless Tobacco: Never Tobacco Cessation:Counseling Given: Not Answered Comments:Smoked 1-2 PPD for at least 30 years. Quit 2017 Alcohol Use Standard Drinks/Week Comments Not Currently [...] drink first t dino in the morning (EYE-IMMIGRATION PATROL INSPECTOR) to steady your nerves or to get rid of a hangover? 0 10/18/2021 CAGE Questionnaire Score 0 022 Sex and Gender Information Value Date Recorded Sex Assigned at Not on file Legal Sex Male 8:57 PM EDT Gender Identity Not on file Sexual Orientation Not on file documented as of this encounter Miscellaneous Notes * PAT Evaluation Note - Emelina Salazar PA - 10/11/2024 10:15 AM EDT Images from the original note were not included. HPI Mono Bobby is a 64 y.o. male who presents with Pre-op Diagnosis * Critical limb ischemia of left lower extremity [I70.222] now scheduled for CREATION, BYPASS, ARTERIAL, FEMORAL TO POPLITEAL (Left). Date scheduled is 10/17/2024. 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 Past Medical History[1] Family History[2] Social History[3] SURGICAL HISTORY: Surgical History[4] Allergies[5] MEDICATIONS: Current Medications[6] ROS Anesthesia: Date of last anesthetic: intravascular lithotripsy of left common and external iliac artery with 2 continuous balloon mounted bare metal stents 09/12/24 No GA issues. history of previous anesthesia. Does not have a history of anesthetic complications, obstructive sleep apnea and PONV. Cardiovascular: Does not have angina, CHF, murmur, orthopnea, syncope or valvular heart disease. Exercise toleranceis 1 flight of stairs. 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 He can do light housework, cooking.. Respiratory: Negative respiratory ROS.Has not had an upper respiratory infection in last 30 days. HEENT: Does not have difficulty swallowing. HEENT additional comments: + edentulous. Neurological: Negative neuro ROS. Musculoskeletal: Does not have cervical spine limited mobility. Musc/Skel/Integ additional comments: + osteoarthritis + muscle cramps Integumentary: Negative skin ROS. Gastrointestinal: Does not have GI malignancy, hernia, pancreatitis or PUD. Does not have cirrhosis or hepatitis. Does not have weight loss. 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 Last UPC 0.35 mg/mg. Microalbuminuria with urine creatinine. Renal function excellent. + BPH Genitourinary: Does not have renal calculi. Hematological/Lymphatic: History of no DVT. History of no pulmonary embolism. no history of chemotherapy no history of radiation Does not have MRSA or tuberculosis. Hem/Lymph ROS additional comments: + anemia Xarelto d/c starting 10/15 per surgeon Endocrine/Metabolic: Does not have thyroid disorder. Does not have hypoglycemia. Endo/Met additional comments: + DM II A1C 7.7% Lab Results Component Value Date WBC 11.68 (H) 09/22/2024 HGB 8.9 (L) 09/22/2024 HCT 26.7 (L) 09/22/2024 MCV 92 09/22/2024 PLT 454 (H) 09/22/2024 Lab Results Component Value Date GLUCOSE 132 (H) 09/22/2024 BUN 15 09/22/2024 CREATININE 0.78 09/22/2024 BCR 19 09/22/2024 NA 137 09/22/2024 K 4.5 09/22/2024 CL 104 09/22/2024 CO2 24 09/22/2024 CA 9.2 03/28/2019 ALBUMIN 3.9 09/20/2024 ALKPHOS 132 (H) 09/20/2024 BILITOT 0.6 09/20/2024 Lab Results Component Value Date HGBA1C 13.0 (H) 02/26/2019 Lab Results Component Value Date INR 1.1 09/20/2024 INR 1.1 10/18/2021 INR 1.0 02/26/2019 09/22/2024 11:05 AM Vitals Systolic 171 Diastolic 75 Heart Rate 107 Temp 36.8 C OSH ECHO 09/29/23 (media) The left ventricle is normal size. EF is mildly decreased LVEF is 45% There is moderate hypokinesis of the inferior and inferoseptal LV christian Grade 1 diastolic dysfunction No evidence of interatrial shunt. Mild AR OSH Device interrogation 08/28/2024 (media) Ab PERDOMO DOI 10/04/2023 MODE: DDDR Physical Exam Anesthesia Plan ASA 3 Anesthesia technique(s) discussed with the patient/family: general Comment: PA-C phone screen GLENDA Garcia [1] Past Medical History: Diagnosis Date Arthritis Old myocardial infarction History of myocardial infarction [2] Family History Problem Relation Name Age of Onset COPD Mother Diabetes Sister [3] Social History Tobacco Use Smoking status: Former Passive exposure: Past Smokeless tobacco: Never Substance Use Topics Alcohol use: Not Currently Comment: holidays/special occasions Drug use: Yes Types: Marijuana Comment: Drug use: Marijuana [4] Past Surgical History: Procedure Laterality Date ANKLE SURGERY Right CARDIAC PACEMAKER PLACEMENT CAROTID ENDARTERECTOMY N/A 2017 Endarterectomy Carotid Artery from [facility] CORONARY ANGIOPLASTY Left Coronary Angiography With Concomitant Left Heart Catheterization from [facility] CORONARY ARTERY BYPASS GRAFT N/A 2018 3V ELBOW SURGERY Right OTHER SURGICAL HISTORY N/A Reported Prior Surgical / Procedural History from [facility] [5] No Known Allergies [6] Current Outpatient Medications: Aspirin Low Dose, Take 1 tablet by mouth daily. docusate sodium, Take 1 capsule by mouth daily. insulin aspart protamine-insulin aspart, Inject 12 Units under the skin 2 times a day with meals. (Patient taking differently: Inject 15 Units under the skin 2 times a day with meals.) insulin glargine, Inject 28 Units under the skin nightly. isosorbide mononitrate ER, Take 1 tablet by mouth daily. lisinopril, Take 1 tablet by mouth daily. metoprolol tartrate, Take 1 tablet by mouth 2 times a day. pravastatin, Take 1 tablet by mouth nightly. rOPINIRole, Take 1 tablet by mouth 2 times a day. (Patient taking differently: Take 2 tablets by mouth 2 times a day.) tamsulosin, Take 1 capsule by mouth every evening. Xarelto, Take 1 tablet by mouth 2 times a day. insulin lispro protamine-insulin lispro, Inject 12 Units under the skin 2 times a day with meals. * Preprocedure Instructions - Emelina Salazar PA - 10/11/2024 10:15 AM EDT Home Medication Instructions Current Medications Medication Instructions Aspirin Low Dose 81 MG EC tablet Take morning of surgery docusate sodium (Colace) 100 MG capsule Hold day of surgery insulin aspart protamine-insulin aspart (NovoLOG Mix 70-30) (70-30) 100 UNIT/ML injection Take 1/2 usual dose of your insulin the night before surgery; check glucose morning of surgery if < 150= no insulin. If > 150= take 1/2 usual dose insulin glargine (Lantus) 100 UNIT/ML injection Take 1/2 usual dose of your insulin night before surgery isosorbide mononitrate ER (Imdur) 60 MG 24 hr tablet Take morning of surgery lisinopril 10 MG tablet Hold day of surgery metoprolol tartrate (Lopressor) 100 MG tablet Take morning of surgery pravastatin (Pravachol) 40 MG tablet Take night before surgery rOPINIRole (Requip) 1 MG tablet Take morning of surgery tamsulosin (Flomax) 0.4 MG 24 hr capsule Take night before surgery Xarelto 2.5 MG tablet Hold 2 days before surgery per surgeon General Preoperative Instructions You will be called the business day before surgery with your arrival time No food, no thick or dark liquids after midnight the night before the surgery. Please drink clear liquids meaning; water, Gatorade/pedialyte or apple juice until 2 hours prior toarrival time surgery day. No alcohol or smoking prior to surgery Arrive on time to avoid delays Parking/Registration procedure explained You MUST have a responsible adult available for transport to and from hospital Visitation policy for the day of surgery reviewed Bring insurance card, photo ID, along with power of spray gun repairer helper, guardianship or advanced directives if applicable Do not bring money, jewelry or other valuables Hibiclens bathing instructions reviewed if applicable Notify surgeon of fever, illness, any changes or if you decide not to have surgery Diabetes Instructions (If applicable) Take diabetes medication as instructed You may have up to 4 ounces of apple juice 2 hours prior to arrival for surgery for low glucose documented in this encounter Plan of Treatment Upcoming Encounters Date Type Department Care Team (Late st Contact Info) Description 11/26/2024 2:00 PM EDT Hospital Encounter [facility] [address] [place] [address] 11/26/2024 2:30 PM EDT Hospital Encounter [facility] [address] [place] [address] 11/26/2024 3:20 PM EDT Office Visit [facility] [address] [place] [address] Elisabet Schuster PA [address] [place] [address] 11/29/2024 2:30 PM EDT Office Visit [facility] [address] [place] [address] Oscar Appiah MD [address] [facility] [address] [place] [address] documented as of this encounter Goals Goal Patient Goal Type Associated Problems Recent Progress Patient-Stated? Author Autogenera louise Goal Care Plan Autogenerated Problem No Ekta Arnett documented as of this encounter Procedures Procedure Name Priority Date/Time Associated Diagnosis Comments CARDIAC DEVICE CHECK - IN CLINIC - SUBQ ICD - INTERROGATION ONLY STAT 10/16/2024 4:50 PM EDT Preop testing documented in this encounter Results * CARDIAC DEVICE CHECK - IN CLINIC - SUBQ ICD - INTERROGATION ONLY (10/16/2024 4:50 PM EDT) Anatomical Region Laterality Modality Other Narrative 10/17/2024 9:50 AM EDT [facility]: Pre-operative CIED Report Assessment and Sara-Procedural Reommendations: Name: Mono Bobby Date: 10/17/2024 : 1960 Age: 64 y.o. Patient has a Inspector Fuel Hose: Berger PATROLLER-PM Remaining battery longevity adequate. Lead integrity test values trending within normal limits. Recommendations pending review and co-signature by provider.? Recommendation: Heart rate dependency on pacemaker or potential dependency cannot be excluded. Recommend placement of magnet over device for duration of procedure and use of electrocautery in short bursts. Placing dispersion patch on contralateral thigh to device. Pre-procedural CIED evaluation based on available documentation dated 08/28/2024 for perioperative device management recommendations. Supporting reports can be found in [employer] file. us Emelina DOSHI CV IMPLANTABLE CARDIAC DEV ICE PROCEDURES Final Result documented in this encounter Visit Diagnoses Diagnosis Preop testing- Primary Unspecified pre-operative examination documented in this encounter Additional Health Concerns Active Problems Noted Date Diagnosed Date Autogenerated Problem 09/23/2024 Assessment Noted Time A Body Mass Index follow-up plan has been documented for the patient 09/22/2024 2:53 PM EDT documented as of this encounter Care Teams Surgical Processor Relationship Specialty Start Date End Date Asad Victor MD [address] [place] [address] PCP - General 10/07/22 documented as of this encounter
--- OUTSIDE RECORDS SUMMARY | 2024-10-16 14:45 | XMS_ITS | Encounter Summary ---
Author Organization Healthcare Address [address] [place] [address] Care Team Providers Care Pharmacy Stock Clerk Name Role Phone Asad Victor MD Primary Care Provider + [phone] Encounter Details Date Type Department Care Team (Latest Contact Info) Description 10/16/2024 2:45 PM EDT - 10/16/2024 11:59 PM EDT Hospital Encounter Cardiac Imaging [address] [place] [address] Discharge Disposition: Home or Self Care Social [...] drink first t dino in the morning (EYE-PRESS OPERATOR INSTANT PRINT SHOP) to steady your nerves or to get [...] Description 11/26/2024 2:00 PM EDT Hospital Encounter [facility] [address] [place] [address] 11/26/2024 2:30 PM EDT Hospital Encounter [facility] [address] [place] [address] 11/26/2024 3:20 PM EDT Office Visit [facility] [address] [place] [address] Elisabet Schuster, GLENDA [address] [facility] [address] [place] [address] 11/29/2024 2:30 PM EDT Office Visit [place] [address] [place] [phone] Oscar Appiah MD [address] [facility] [address] [place] [address] documented as of this encounter Goals Goal [...] Modality Other Narrative 10/17/2024 9:50 AM EDT [facility]: Pre-operative CIED Report Assessment and Sara-Procedural Reommendations: Name: Mono Bobby Date: 10/17/2024 : 1960 Age: 64 y.o. Patient has a Scissors Sharpener: Berger WATCHGUARD-PM Remaining battery longevity adequate. Lead integrity test [...] recommendations. Supporting reports can be found in [employer] media file. 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
--- OUTSIDE RECORDS SUMMARY | 2024-10-17 06:21 | XMS_ITS | Encounter Summary ---
Author Organization [facility] Address [address] [id number] Care Team Providers Care Nuclear Instructor Name Role Phone Asad Victor MD Primary Care Provider [phone] Reason for Referral * Imaging (Routine) - Authorized Specialty Diagnoses / Procedures Referred By Susan t Referred To Contact Cardiology Diagnoses Critical limb ischemia of left lower extremity Pseudoaneurysm of left femoral artery (CMS/HCC) Procedures VAS US Arterial Duplex Lower Extremity Unilateral Left Terrell Gautam MD [address] [address] Phone: tel: fax: Referral ID Status Reason Start Date Expiration Date Visits Requested Visits Authorized [id number] Authorized Perform Procedure 10/19/2024 04/20/2026 1 1 * Imaging (Routine) - Authorized Specialty Diagnoses / Procedures Referred By Contac t Referred To Contact Cardiology Diagnoses Critical limb ischemia of left lower extremity Pseudoaneurysm of left femoral artery (CMS/HCC) Procedures VAS Ankle Brachial Index - Segmental Terrell Gautam MD [id number] [place] [address] Phone: tel: fax: Referral ID Status Reason Start Date Expiration Date Visits Requested Visits Authorized [id number] Authorized Perform Procedure 10/19/2024 04/20/2026 1 1 * Consultation (Routine) - Authorized Specialty Diagnoses / Procedures Referred By Contact Referred To Contact Vascular Surgery / [facility] Diagnoses Critical limb ischemia of left lower extremity Pseudoaneurysm of left femoral artery (CMS/HCC) Terrell Gautam MD [address] [place] [address] Phone: tel:[phone] fax:[phone] [facility] [address] [place] [address] 5th Floor Wing [address] [place] [address] Phone: tel: fax: Referral ID Status Reason Start Date Expiration Date Visits Requested Visits Authorized [id number] Authorized Specialty Services Required 10/19/2024 04/20/2026 [address] Gautam, with SIL, arterial duplex Reason for Visit * Auth/Cert (Routine) Specialty Diagnoses / Procedures Referred By Susan t Referred To Contact Diagnoses Critical limb ischemia of left lower extremity Critical limb ischemia of left lower extremity [I70.222] Procedures RI VEIN BYPASS GRAFT,FEM-POP CREATION, BYPASS, ARTERIAL, FEMORAL TO POPLITEAL Terrell Gautam MD [address] [place] [address] Phone: tel: fax: [facility] A OPERATING ROOM [address] [place] [address] Phone: tel: Referral ID Status Reason Start Date Expiration Date Visits Re quested Visits Authorized [id number] 1 1 Encounter Details Date Type Department Care Team (Latest Contact Info) Description 10/17/2024 6:21 AM EDT - 10/19/2024 12:39 PM EDT Hospital Encounter [facility] H Inpatient [address] [place] [phone] Terrell Gautam MD [address] [place] [address] Pseudoaneurysm of left femoral artery (CMS/HCC) [...] any time in the past [address] [facility], were you homeless or living in a [...] drink first t dino in the morning ([employer]) to steady your nerves or to get rid of a hangover? 0 10/18/2021 CAGE Questionnaire Score 0 022 Utilities Answer Date Recorded In the past 12 months has th CPXi, gas, oil, or water [employer]MS [employer] threatened to shut off services in your [...] provided Taken 10/17/20242107 by Jourdan Grimes II grocery specialist Review/Management: medications reviewed Problem: Skin Injury [...] Ongoing, Progressing Intervention: Promote Activity and Functional Hernando Flowsheets (Taken 10/19/2024 1048) Self-Care Promotion: BADL personal objects within reach meal set-up provided * Yuni Ramires - Keyla Chow - 10/19/2024 11:45 AM EDT Images from the original note were not included. [id number] After Peripheral Artery Bypass Surgery: In the [...] home. Last Reviewed Date: 2023 00:00:00 ?? [id number] [employer]. All rights reserved. This information is not intended as a substitute for professional medical care. Always follow your healthcare professional's instructions. * Progress Notes - Emelina Friend - 10/19/2024 11:44 AM EDT Case Management Adult Progress Note Bev Bobby 64 y.o. male CSN: [id number] Admission: 10/17/2024 6:21 AM Primary Problem: Critical [...] if any other needs arise. Emelina Friend COLOR SEPARATION PHOTOGRAPHER, PLUG STITCHER Social Work Case Management * Yuni OviJOSE MANUEL Chow Keyla - 10/19/2024 11:44 AM EDT Images from the original note were not included. [id number] Peripheral Artery Disease (PAD) Peripheral artery disease [...] cause. Last Reviewed Date: 2024 00:00:00 ?? [id number] [employer]. All rights reserved. This information is not intended as a substitute for professional medical care. Always follow your healthcare professional's instructions. * Yuni DiorNAVYA - Keyla Chow - 10/19/2024 11:44 AM EDT Images from the original note were not included. [id number] Leg Artery Emergencies: Critical Limb Ischemia (CLI) [...] appointments. Last Reviewed Date: 2023 00:00:00 ?? [id number] [employer]. All rights reserved. This information is not intended as a substitute for professional medical care. Always follow your healthcare professional's instructions. * Discharge Summary - Dandy Baltazar MD - 10/19/2024 11:31 AM EDT Hospitalization Admit Date/Time: 10/17/2024 6:21 AM Admitting Attending: Terrell Gautam Discharge Date: 10/19/24 Discharge Attending Physician: Nirmal Cueto MD PCP name and Address: Asad Victor MD (Inactive) [address] [place] [address] / [facility] [address] Referring provider name and address: Timothy Marques PA [address] [place] [address] Chief Concern, Brief History of Present Illness, and Hospital Course Bev Bobby is an 64 y.o. 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 [...] Your Medications These medications were sent to [facility] - [place], [place] - [address], [facility] [address] acetaminophen 500 MG tablet clopidogrel 75 MG [...] of water. 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 [...] provided Taken 10/17/20242107 by Jourdan Grimes II, grocery specialist Review/Management: medications reviewed Problem: Skin Injury [...] Ongoing, Progressing Intervention: Promote Activity and Functional Hernando Flowsheets (Taken 10/19/2024 1048) Self-Care Promotion: BADL [...] evaluation. PARTICIPANTS IN CARE Visitors Present No Top Waddy (if applicable) PRESENTATION Oxygen Oxygen Therapy: None [...] Level of Mobility Ambulatory- household only Mobility Hernando Independent gait with device (rollator) History of [...] numbness in rodney) BED MOBILITY Level of Hernando Physical/Non- physical Assist Adaptive Equipment Utilized Rolling/ Turning Scooting/ Bridging Modified independence (anteriorly to EOB) Bed rails Supine to Sit Modified Hernando (to the right) (HOB flat) Bed rails Sit to Supine Interventions HOB flat to simulate home environment TRANSFERS Level of Hernando Physical/Non- physical Assist Adaptive Equipment Utilized Sit [...] stable surfaces during transitions. AMBULATION Level of Hernando Distance Adaptive Equipment Utilized Ambulation Standby assist, [...] Posture: Forward head, Rounded shoulders Level of Hernando Balance Support Interventions Static Sit Independent Right [...] 3-5 steps with a railing?: A little [facility] 6-Clicks Mobility Assessment Total : [...] evaluation/session. Participants in Care Family/Caregiver Present: No Top Waddy: Not Applicable Presentation Oxygen Therapy: None (Room [...] Level of Mobility: Ambulatory- household only Mobility Hernando: Independent gait with device (rollator) History of [...] Mobility Bed Mobility Exam: Scooting/Bridging Level of Hernando: Modified independence (anteriorly to EOB) Assistive Device: Bed rails Bed Mobility Exam: Supine to Sit Level of Hernando: Modified Hernando (to the right) Physical/Nonphysical Assist: (HOB flat) Assistive Device: Bed rails Transfers Transfer Exam: Sit to stand Level of Hernando: Stand-by assist Physical/Nonphysical Assist: Supervision, Verbal Cues, Minimal cues Assistive Device: Walker, rolling Transfer Exam: Stand to Sit Level of Hernando: Stand-by assist Physical/Nonphysical Assist: Supervision, Verbal Cues, [...] regarding toileting at this time. Standardized Assessments [facility] 6-Click Daily Activities Help from Other: Don/Doff Regular Lower Body Clothings: None Help From Other: Bathing: Little Help From Other: Toileting: None Help From Other: Don/Doff Upper Body Clothings: None Help From Other: Grooming: None Help From Other: Eating Meals: None [facility] 6 Click - Daily Activities Score: 23/[address] [facility] Scoring Interpretation: Scores greater than [...] Note Bev Bobby 64 y.o. male CSN: [id number] Admission: 10/17/2024 6:21 AM Primary Problem: Critical limb ischemia of left lower extremity Certified Family Mediator reviewed chart and spoke with patient to complete this Initial Case Management Assessment. PCP: Asad Victor MD (Inactive) - Dr. Palomo Preferred pharmacy is [facility] Emergency Contact: Extended Emergency Contact Information Primary Emergency Contact: Patti Hill Relation: Sister Top Waddy needed? No Insurance: Primary Visit Coverage Payer Plan Sponsor Code Group Number Group Name [facility] MEDICARE [facility] MEDICARE REPLACEMENT [id number] Primary Visit Coverage Subscriber Subscriber ID Subscriber Name Subscriber N Subscriber Address [id number] BEV BOBBY [id number] [place] [address] Secondary Visit Coverage Payer Plan Sponsor Code Group Number Group Name [facility] Secondary Visit Coverage Subscriber Subscriber ID Subscriber Name Subscriber N Subscriber Address [id number] BEV BOBBY [id number] [place] [address] Patient information: Primary Caregiver: Self Daily Living Activities: Functional Status: Independent Living Arrangements: Alone Type of Residence: Private residence, Single Level [address] [place] [address] Current DME: Equipment Currently Used at Home: walker, rollator Income Information: Income Source: Retired Income/Expense Information: Income meets expenses Current Resources Utilized: Food [place] Housing Circumstances-Z Codes: Housing Circumstances (select all [...] Dialysis Services: None. Living Will/Advance Directive/Power of Shellfish Checker /Guardian: Denied. Additional Comments: Patient is not medically ready for discharge. SW will continue to follow. Mariia Macedo PLUG STITCHER * Care Plan - Emilia Alonso RN [...] from the original note were not included. [facility] Department of Surgery Division of Vascular [...] pads utilized * Anesthesia PACU Signout - Cleestine Andrade DO - 10/17/2024 2:23 PM EDT [...] Agree with above assessment and evaluation from resident/MULTIMEDIA AUTHOR. * Op Note - Terrell Gautam MD - 10/17/2024 8:52 AM EDT Operative Note Date: 10/17/24 Location: [facility] Name: Bev Bobby, : 1960, Diagnoses: Pre-op Diagnosis Critical limb ischemia of left lower extremity Common femoral artery pseudoaneurysm Post-op Diagnosis Critical limb ischemia of left lower extremity Common femoral artery pseudoaneurysm Procedure(s): Left common/superficial/profunda femoral thromboendarterectomy with bovine patch repair Left external iliac artery/CLINIC SPECIALIST stent Attending Surgeon(s): * Terrell Gautam - Primary Jacquard Fixer(s): * Luna Beckett MD - Resident - [...] Necessity Reasons Recent surgery contiguous with urinary tract/PUBLIC ADDRESS TECHNICIAN/colorectal 10/17/24 190 Output (mL) 50 mL 10/18/24 08 Implants Type Name Action Serial No. VASCUGUARD 8 X 8 - [id number] Implanted STENT ENDOPROSTHESIS VIABAHN 9FR [id number] - [id number] Implanted [id number] Specimen: Specimens ID Source Frozen? 1 Other [...] and distal control. We then proceeded with ixbfm-tez-dige exposure of the popliteal artery. A medial [...] balloon dilated thestent with a 9 mm Dale. We closed the arteriotomy with a single [...] 10/17/2024 8:52 AM EDT Date: 10/17/24 Location: [facility] Name: Bev Perez Kanu, : 1960, Diagnoses: Pre-op Diagnosis Critical limb ischemia of left lower extremity Common femoral artery pseudoaneurysm Post-op Diagnosis Critical limb ischemia of left lower extremity Common femoral artery pseudoaneurysm Procedure(s): Left common/superficial/profunda femoral thromboendarterectomy with bovine patch repair Left external iliac artery/CLINIC SPECIALIST stent Attending Surgeon(s): * Terrell Gautam - Primary Jacquard Fixer(s): * Luna Beckett MD - Resident - Assisting * Dandy Baltazar MD - Fellow Anesthesia: General ASA: III Blood Administration: Blood Product Administration History None Estimated Blood Loss: 300 mL Drains: Urethral Catheter Temperature probe 16 Fr. (Active) Implants Type Name Action Serial No. VASCUGUARD 8 X 8 - [id number] Implanted STENT ENDOPROSTHESIS VIABAHN 9FR [id number] - [id number] Implanted [id number] Specimen: Specimens ID Source Frozen? 1 Other [...] issues. 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 He previouslyunderwent thrombin injection. He reports pain in his calves. He presents today for scheduled left lower extremity femoral to yyljw-mav-xopx popliteal bypass. Planned likely use PTFE. He [...] 16. Results Review {Vanishing Link Review Results :[id number] I have reviewed the latest lab and imaging results. Assessment & Plan Critical limb ischemia of left lower extremity Proceed with scheduled surgery left lower extremity femoral to yiocu-urs-kciy popliteal artery bypass graft. Extensive discussion had [...] Description 11/26/2024 2:00 PM EDT Hospital Encounter [facility] [address] [place] [address] 11/26/2024 2:30 PM EDT Hospital Encounter [facility] [address] [place] [address] 11/26/2024 3:20 PM EDT Office Visit [facility] [address] Floor [address] [place] [address] Elisabet Schuster, GLENDA [address] [facility] [address] [place] [address] 11/29/2024 2:30 PM EDT Office Visit [facility] [address] [place] [phone] Oscar Appiah MD [address] [facility] [address] [place] [address] Pending Results Name Type Priority Associated Diagnoses [...] Comment 10/19/2024 11:42 AM EDT HEALTHCARE LAB Glassblower ID KamranJob 10/20/19 11:42 AM EDT HEALTHCARE LAB Device ID [id number] 10/19/2024 11:42 AM EDT [facility] Specimen Type POC Capillary 10/19/2024 11:42 AM EDT [facility] Blood Capillary blood specimen / Unknown 10/19/2024 11:40 AM EDT 10/19/2024 11:42 AM EDT Terrell Gautam MD LAB POINT OF CARE TE ST DOCKED DEVICE UNSOLICITED RESULTS Final Result Performing Organization Address City/State/[facility] Co de Phone Number HEALTHCARE LAB [address] [place] [address] * (ABNORMAL) Protime-INR (10/19/2024 8:25 AM EDT) Prothrombin Time 17.5(H) 12.0 - 14.3 sec LAB COAGULATION METHOD 10/19/2024 9:25 AM EDT [facility] INR 1.4(H) 0.9 - 1.1 LAB COAGULATION METHOD 10/19/2024 9:25 AM EDT [facility] Blood Venous blood specimen / Unknown Venipuncture / Unknown 10/19/2024 8:25 AM EDT 10/19/2024 8:43 AM EDT Narrative [facility] - 10/19/2024 9:25 AM EDT OPTIMAL INR RANGES FOR PATIENT ON ORAL ANTICOAGULANT THERAPY Prevention of venous thromboembolism INR 2.0 to 3.0 In patients with heart disease: Atrial fibrillation INR 2.0 to 3.0 Valvular heart disease INR 2.0 to 3.0 Tissue heart valves INR 2.0 to 3.0 Mechanical prosthetic valves INR 2.5 to 3.5 Prevention of recurrent SC INR 2.5 to 3.5 Nirmal Cueto MD LAB BLOOD [place] [address] * (ABNORMAL) Phosphorus (10/19/2024 8:25 AM EDT) Phosphorus, Plasma 2.2(L) 2.5 - 4.5 mg/dL 10/19/2024 9:12 AM EDT [facility] Blood Venous blood specimen / Unknown Venipuncture / Unknown 10/19/2024 8:25 AM EDT 10/19/2024 8:43 AM EDT Nirmal Cueto MD LAB BLOOD ORDERABLES Final Result Performing Organization Address City/[facility]/ZIP Co de Phone Number [facility] [address] [place] [address] * Magnesium (10/19/2024 8:25 AM EDT) Magnesium, Plasma 2.1 1.9 - 2.4 mg/dL 10/19/2024 9:12 AM EDT [facility] Blood Venous blood specimen / Unknown Venipuncture / Unknown 10/19/2024 8:25 AM EDT 10/19/2024 8:43 AM EDT Nirmal Cueto MD LAB BLOOD ORDERABLES Final Result Performing Organization Address City/[facility]/ZIP Co de Phone Number [facility] [address] [place] [address] * (ABNORMAL) Basic metabolic panel (10/19/2024 8:25 AM EDT) Glucose, Plasma 191(H) 74 - 99 mg/dL 10/19/2024 9:12 AM EDT [facility] BUN, Plasma 18 8 - 23 mg/dL 10/19/2024 9:12 AM EDT [facility] Creatinine, Plasma 0.76 0.70 - 1.20 mg/dL 10/19/2024 9:12 AM EDT [facility] BUN/Creatinine Ratio 24 10/19/2024 9:12 AM EDT [facility] Sodium, Plasma 135(L) 136 - 145 mmol/L 10/19/2024 9:12 AM EDT [facility] Potassium, Plasma 4.1 3.6 - 4.9 mmol/L 10/19/2024 9:12 AM EDT [facility] Chloride, Plasma 104 97 - 107 mmol/L 10/19/2024 9:12 AM EDT [facility] CO2, Plasma 22 22 - 29 mmol/L 10/19/2024 9:12 AM EDT [facility] Anion Gap 9 6 - 16 mmol/L 10/19/2024 9:12 AM EDT [facility] Total Calcium, Plasma 8.4(L) 8.9 - 10.2 mg/dL 10/19/2024 9:12 AM EDT [facility] eGFRcr 99.7 mL/min/1.7 3m*2 10/19/2024 9:12 AM EDT [facility] Comment:Reported eGFRcr in m L/min/1.73m2 is based the CKD-EPI 2020 equation that does not use a race coefficient. Blood Venous blood specimen / Unknown Venipuncture / Unknown 10/19/2024 8:25 AM EDT 10/19/2024 8:43 AM EDT us Nirmal Cueto MD LAB BLOOD ORDERABLES Final Result [facility] [address] [place] [address] * (ABNORMAL) CBC W/O Differential (10/19/2024 8:25 AM EDT) WBC Count 14.10(H) 3.70 - 10.30 10*3/uL LAB HEMATOLOGY METHOD 10/19/2024 8:52 AM EDT [facility] RBC Count 2.61(L) 4.60 - 6.10 10*6/uL LAB HEMATOLOGY METHOD 10/19/2024 8:52 AM EDT [facility] HGB 8.0(L) 13.7 - 17.5 g/dL LAB HEMATOLOGY METHOD 10/19/2024 8:52 AM EDT [facility] HCT 24.3(L) 40.0 - 51.0 % LAB HEMATOLOGY METHOD 10/19/2024 8:52 AM EDT [facility] Platelet Count 318 155 - 369 10*3/uL LAB HEMATOLOGY METHOD 10/19/2024 8:52 AM EDT [facility] MCV 93 79 - 98 fL LAB HEMATOLOGY METHOD 10/19/2024 8:52 AM EDT [facility] MCH 30.7 26.0 - 32.0 pg LAB HEMATOLOGY METHOD 10/19/2024 8:52 AM EDT [facility] MCHC 32.9 30.7 - 35.5 g/dL LAB HEMATOLOGY METHOD 10/19/2024 8:52 AM EDT [facility] RDW 13.4 11.5 - 14.5 % LAB HEMATOLOGY METHOD 10/19/2024 8:52 AM EDT [facility] MPV 9.6 8.8 - 12.5 fL LAB HEMATOLOGY METHOD 10/19/2024 8:52 AM EDT [facility] nRBC 0.0 <=0.0 per 100 WBCs LAB HEMATOLOGY METHOD 10/19/2024 8:52 AM EDT [facility] Blood Venous blood specimen / Unknown Venipuncture / Unknown 10/19/2024 8:25 AM EDT 10/19/2024 8:44 AM EDT us Nirmal Cueto MD LAB BLOOD ORDERABLES Final Result [facility] [address] [place] [address] * (ABNORMAL) POCT glucose meter (10/19/2024 7:35 AM EDT) [facility] POCT Glucose 187(H) 74 - 99 [...] Comment 10/19/2024 7:37 AM EDT [facility]ALTHCARE LAB Glassblower ID Job Andrew 10/20/19 7:37 AM EDT HEALTHCARE LAB Device ID [id number] 10/19/2024 7:37 AM EDT [facility] LAB Specimen Type POC Capillary 10/19/2024 7:37 AM EDT [facility] Blood Capillary blood specimen / Unknown 10/19/2024 7:35 AM EDT 10/19/2024 7:37 AM EDT us Terrell Gautam MD LAB POINT OF CARE TE ST DOCKED DEVICE UNSOLICITED RESULTS Final Result Performing Organization Address City/State/[facility] Co de Phone Number [facility] [address] [place] [address] * (ABNORMAL) POCT glucose meter (10/18/2024 7:22 PM EDT) [facility] POCT Glucose 178(H) 74 - 99 [...] 10/18/2024 7:24 PM EDT [facility] Glassblower ID Jovan Mahesh 10/18/2024 7:24 PM EDT [facility] Device ID [id number] 10/18/2024 7:24 PM EDT [facility]ARE LAB Specimen Type POC Capillary 10/18/2024 7:24 PM EDT [facility] Blood Capillary blood specimen / Unknown 10/18/2024 7:22 PM EDT 10/18/2024 7:24 PM EDT us Terrell Gautam MD LAB POINT OF CARE TE ST DOCKED DEVICE UNSOLICITED RESULTS Final Result Performing Organization Address City/[facility]/ZIP Co de Phone Number [facility] [address] [place] [address] * (ABNORMAL) POCT glucose meter (10/18/2024 6:07 [...] Comment 10/18/2024 6:09 PM EDT HEALTHCARE LAB Glassblower ID David Parks 10/18/2024 6:09 PM EDT HEALTHCARE LAB Device ID [id number] 10/18/2024 6:09 PM EDT [facility]ALTH[facility]ARE LAB Specimen Type POC Capillary 10/18/2024 6:09 PM EDT [facility] Blood Capillary blood specimen / Unknown 10/18/2024 6:07 PM EDT 10/18/2024 6:09 PM EDT us Terrell Gautam MD LAB POINT OF CARE TE ST DOCKED DEVICE UNSOLICITED RESULTS Final Result [facility] [address] [place] [address] * (ABNORMAL) POCT glucose meter (10/18/2024 11:56 [...] Comment 10/21/2024 7:42 AM EDT HEALTHCARE LAB Glassblower ID Venessa Marcano 10/21/2024 7:42 AM EDT [facility] Device ID [id number] 10/21/2024 7:42 AM EDT [facility] Specimen Type POC Capillary 10/21/2024 7:42 AM EDT [facility] Blood Capillary blood specimen / Unknown 10/18/2024 11:56 AM EDT 10/21/2024 7:42 AM EDT us Terrell Gautam MD LAB POINT OF CARE TE ST DOCKED DEVICE UNSOLICITED RESULTS Final Result Performing Organization Address City/State/[facility] Co de Phone Number [facility]ARE LAB [address] [place] [address] * (ABNORMAL) POCT glucose meter (10/18/2024 9:24 [...] 10/21/2024 7:42 AM EDT [facility] Glassblower ID Emilia Alonso 7:42 AM EDT [facility] Device ID [id number] 10/21/2024 7:42 AM EDT [facility]ALTH[facility]ARE LAB Specimen Type POC Venous 10/21/2024 7:42 AM EDT [facility] Blood Venous blood specimen / Unknown 10/18/2024 9:24 AM EDT 10/21/2024 7:42 AM EDT us Terrell Gautam MD LAB POINT OF CARE TE ST DOCKED DEVICE UNSOLICITED RESULTS Final Result [facility] [address] [place] [address] * (ABNORMAL) POCT glucose meter (10/18/2024 7:36 [...] for testing. Comment 10/18/2024 7:38 AM EDT [facility] Glassblower ID Kizzy Godfrey 025 7:38 AM EDT HEALTHCARE LAB Device ID [id number] 10/18/2024 7:38 AM EDT [facility] Specimen Type POC Capillary 10/18/2024 7:38 AM EDT [facility] Blood Capillary blood specimen / Unknown 10/18/2024 7:36 AM EDT 10/18/2024 7:38 AM EDT us Terrell Gautam MD LAB POINT OF CARE TE ST DOCKED DEVICE UNSOLICITED RESULTS Final Result [facility] [address] [place] [address] * (ABNORMAL) CBC (10/18/2024 2:09 AM EDT) Pathologist [facility] WBC Count 16.71(H) 3.70 - 10.30 10*3/uL LAB HEMATOLOGY METHOD 10/18/2024 2:33 AM EDT [facility] RBC Count 2.78(L) 4.60 - 6.10 10*6/uL LAB HEMATOLOGY METHOD 10/18/2024 2:33 AM EDT [facility] HGB 8.5(L) 13.7 - 17.5 g/dL LAB HEMATOLOGY METHOD 10/18/2024 2:33 AM EDT [facility] HCT 25.7(L) 40.0 - 51.0 % LAB HEMATOLOGY METHOD 10/18/2024 2:33 AM EDT [facility] Platelet Count 324 155 - 369 10*3/uL LAB HEMATOLOGY METHOD 10/18/2024 2:33 AM EDT [facility] MCV 92 79 - 98 fL LAB HEMATOLOGY METHOD 10/18/2024 2:33 AM EDT [facility] MCH 30.6 26.0 - 32.0 pg LAB HEMATOLOGY METHOD 10/18/2024 2:33 AM EDT [facility] MCHC 33.1 30.7 - 35.5 g/dL LAB HEMATOLOGY METHOD 10/18/2024 2:33 AM EDT [facility] RDW 13.3 11.5 - 14.5 % LAB HEMATOLOGY METHOD 10/18/2024 2:33 AM EDT [facility] MPV 9.4 8.8 - 12.5 fL LAB HEMATOLOGY METHOD 10/18/2024 2:33 AM EDT [facility] nRBC 0.0 <=0.0 per 100 WBCs LAB HEMATOLOGY METHOD 10/18/2024 2:33 AM EDT [facility] Blood Venous blood specimen / Unknown Venipuncture / Unknown 10/18/2024 2:09 AM EDT 10/18/2024 2:25 AM EDT us Nirmal Cueto MD LAB BLOOD ORDERABLES Final Result [facility] [address] [place] [address] * (ABNORMAL) Basic metabolic panel (10/18/2024 2:09 AM EDT) Glucose, Plasma 206(H) 74 - 99 mg/dL 10/18/2024 2:53 AM EDT [facility] BUN, Plasma 24(H) 8 - 23 mg/dL 10/18/2024 2:53 AM EDT [facility] Creatinine, Plasma 1.17 0.70 - 1.20 mg/dL 10/18/2024 2:53 AM EDT [facility] BUN/Creatinine Ratio 21 10/18/2024 2:53 AM EDT [facility] Sodium, Plasma 136 136 - 145 mmol/L 10/18/2024 2:53 AM EDT [facility] Potassium, Plasma 4.8 3.6 - 4.9 mmol/L 10/18/2024 2:53 AM EDT [facility] Chloride, Plasma 104 97 - 107 mmol/L 10/18/2024 2:53 AM EDT [facility] CO2, Plasma 22 22 - 29 mmol/L 10/18/2024 2:53 AM EDT [facility] Anion Gap 10 6 - 16 mmol/L 10/18/2024 2:53 AM EDT [facility] Total Calcium, Plasma 8.5(L) 8.9 - 10.2 mg/dL 10/18/2024 2:53 AM EDT [facility] eGFRcr 69.2 mL/min/1.7 3m*2 10/18/2024 2:53 AM EDT [facility] Comment:Reported eGFRcr in m L/min/1.73m2 is based the CKD-EPI 2020 equation that does not use a race coefficient. Blood Venous blood specimen / Unknown Venipuncture / Unknown 10/18/2024 2:09 AM EDT 10/18/2024 2:25 AM EDT Nirmal Cueto MD LAB BLOOD ORDERABLES Final Result [facility] [address] [place] [address] * (ABNORMAL) Magnesium (10/18/2024 2:09 AM EDT) Magnesium, Plasma 1.8(L) 1.9 - 2.4 mg/dL 10/18/2024 2:53 AM EDT [facility] Blood Venous blood specimen / Unknown Venipuncture / Unknown 10/18/2024 2:09 AM EDT 10/18/2024 2:25 AM EDT us Nirmal Cueto MD LAB BLOOD ORDERABLES Final Result [facility] [address] [place] [address] * Phosphorus (10/18/2024 2:09 AM EDT) Phosphorus, Plasma 3.7 2.5 - 4.5 mg/dL 10/18/2024 2:53 AM EDT [facility] Blood Venous blood specimen / Unknown Venipuncture / Unknown 10/18/2024 2:09 AM EDT 10/18/2024 2:25 AM EDT Nirmal Cueto MD LAB BLOOD ORDERABLES Final Result Performing Organization Address [facility] Co de Phone Number [facility] [address] [place] [address] * (ABNORMAL) Protime-INR (10/18/2024 2:09 AM EDT) Prothrombin Time 14.5(H) 12.0 - 14.3 sec LAB COAGULATION METHOD 10/18/2024 2:53 AM EDT [facility] INR 1.1 0.9 - 1.1 LAB COAGULATION METHOD 10/18/2024 2:53 AM EDT [facility] Blood Venous blood specimen / Unknown Venipuncture / Unknown 10/18/2024 2:09 AM EDT 10/18/2024 2:25 AM EDT Narrative [facility] - 10/18/2024 2:53 AM EDT OPTIMAL INR RANGES FOR PATIENT ON ORAL ANTICOAGULANT THERAPY Prevention of venous thromboembolism INR 2.0 to 3.0 In patients with heart disease: Atrial fibrillation INR 2.0 to 3.0 Valvular heart disease INR 2.0 to 3.0 Tissue heart valves INR 2.0 to 3.0 Mechanical prosthetic valves INR 2.5 to 3.5 Prevention of recurrent SC INR 2.5 to 3.5 us Nirmal Cueto MD LAB BLOOD ORDERABLES Final Result Performing Organization Address City/[facility]/ZIP Co de Phone Number [facility] [address] [place] [address] * (ABNORMAL) POCT glucose meter (10/18/2024 2:08 AM EDT) [facility] POCT Glucose 202(H) 74 - 99 [...] Comment 10/18/2024 2:10 AM EDT [facility] Glassblower ID Jourdan Grimes II 10/18/2024 2:10 AM EDT [facility] LAB Device ID [id number] 10/18/2024 2:10 AM EDT [facility] Specimen Type POC Capillary 10/18/2024 2:10 AM EDT [facility] Blood Capillary blood specimen / Unknown 10/18/2024 2:08 AM EDT 10/18/2024 2:10 AM EDT us Terrell Gautam MD LAB POINT OF CARE TE ST DOCKED DEVICE UNSOLICITED RESULTS Final Result Performing Organization Address City/State/[facility] Co de Phone Number [facility]ARE [facility] [address] [place] [address] * (ABNORMAL) POCT glucose meter (10/17/2024 10:07 PM EDT) [facility] POCT Glucose 300(H) 74 - 99 [...] Comment 10/17/2024 10:10 PM EDT [facility] Glassblower ID Jourdan Grimes II 10/17/2024 10:10 PM EDT [facility] LAB Device ID [id number] 10/17/2024 10:10 PM EDT [facility] Specimen Type POC Capillary 10/17/2024 10:10 PM EDT [facility] Blood Capillary blood specimen / Unknown 10/17/2024 10:07 PM EDT 10/17/2024 10:10 PM EDT Terrell Gautam MD LAB POINT OF CARE TE ST DOCKED DEVICE UNSOLICITED RESULTS Final Result Performing Organization Address City/[facility] Co de Phone Number [facility] LAB [address] [place] [address] * (ABNORMAL) POCT glucose meter (10/17/2024 8:07 [...] Comment 10/17/2024 8:10 PM EDT [facility] Glassblower ID Jourdan Grimes II 10/17/2024 8:10 PM EDT [facility] LAB Device ID [id number] 10/17/2024 8:10 PM EDT [facility] Specimen Type POC Capillary 10/17/2024 8:10 PM EDT [facility] Blood Capillary blood specimen / Unknown 10/17/2024 8:07 PM EDT 10/17/2024 8:10 PM EDT us Terrell Gautam MD LAB POINT OF CARE TE ST DOCKED DEVICE UNSOLICITED RESULTS Final Result Performing Organization Address City/[facility]/ZIP Co de Phone Number [facility] [address] [place] [address] * (ABNORMAL) POCT glucose meter (10/17/2024 4:01 [...] Comment 10/17/2024 4:03 PM EDT [facility] Glassblower ID Keisha Waller 10/17/2024 4:03 PM EDT [facility] LAB Device ID [id number] 10/17/2024 4:03 PM EDT [facility] Specimen Type POC Capillary 10/17/2024 4:03 PM EDT [facility] Blood Capillary blood specimen / Unknown 10/17/2024 4:01 PM EDT 10/17/2024 4:03 PM EDT us Terrell Gautam MD LAB POINT OF CARE TE ST DOCKED DEVICE UNSOLICITED RESULTS Final Result Performing Organization Address City/State/[facility] Co de Phone Number [facility] [address] [place] [address] * (ABNORMAL) POCT glucose meter (10/17/2024 1:25 PM EDT) [facility] POCT Glucose 225(H) 74 - 99 [...] Comment 10/17/2024 1:27 PM EDT [facility] Glassblower ID Kizzy Godfrey 025 1:27 PM EDT [facility] LAB Device ID [id number] 10/17/2024 1:27 PM EDT [facility] Specimen Type POC Capillary 10/17/2024 1:27 PM EDT [facility] Blood Capillary blood specimen / Unknown 10/17/2024 1:25 PM EDT 10/17/2024 1:27 PM EDT us Terrell Gautam MD LAB POINT OF CARE TE ST DOCKED DEVICE UNSOLICITED RESULTS Final Result Performing Organization Address City/[facility] Co de Phone Number [facility] [address] [place] [address] * [place] Less than 1 Hour Intraoperative (10/17/2024 1:18 PM EDT) Narrative IMAGING - 10/17/2024 2:05 PM EDT Images were obtained for surgical purposes. See Terrell Gautam's surgical note in the patient's chart for the findings. Terrell Gautam MD IMG FLUOROSCOPY PROCEDURES Fi nal Result Performing Organization Address [facility] Co de Phone Number IMAGING * POCT ACT (10/17/2024 12:23 PM EDT) ACT+ (HIGH RANGE) 211 68 - 600 Seconds 10/29/2024 7:28 AM EDT [facility] LAB Glassblower ID Donna Mcmillan 10/29/2024 7:28 AM EDT [facility] ACT Device ID [id number] 10/29/2024 7:28 AM EDT [facility] Comment 10/29/2024 7:28 AM EDT [facility] Comment: ACT performed by [...] UNSOLICITED RESULTS Final Result Performing Organization Address [facility] Co de Phone Number [facility]ARE LAB [address] [place], [place] [id number] [place] [address] LAB [address] [place] [address] * (ABNORMAL) Blood gas, arterial (10/17/2024 11:48 AM EDT) pH, Arterial 7.34 7.31 - 7.42 LAB HEMATOLOGY METHOD 10/17/2024 11:54 AM EDT [facility] pCO2, Arterial 41 32 - 45 mmHg LAB HEMATOLOGY METHOD 10/17/2024 11:54 AM EDT [facility] pO2, Arterial 202 >80 mmHg LAB HEMATOLOGY METHOD 10/17/2024 11:54 AM EDT [facility] SO2, Measured, Arterial 100(H) 94 - 98 % LAB HEMATOLOGY METHOD 10/17/2024 11:54 AM EDT [facility] Base Excess, Arterial -3.2(L) -2.0 - 3.0 mmol/L LAB HEMATOLOGY METHOD 10/17/2024 11:54 AM EDT [facility] Bicarbonate, Calculated, Arterial 22 22 - 26 mmol/L LAB HEMATOLOGY METHOD 10/17/2024 11:54 AM EDT [facility] Hematocrit, Whole Blood 28.6(L) 40.0 - 51.0 % LAB HEMATOLOGY METHOD 10/17/2024 11:54 AM EDT [facility] Sodium, Whole Blood 137 136 - 145 mmol/L LAB HEMATOLOGY METHOD 10/17/2024 11:54 AM EDT [facility] Potassium, Whole Blood 4.5 3.6 - 4.9 mmol/L LAB HEMATOLOGY METHOD 10/17/2024 11:54 AM EDT [facility] Chloride, Whole Blood 112(H) 97 - 107 mmol/L LAB HEMATOLOGY METHOD 10/17/2024 11:54 AM EDT [facility] Glucose, Whole Blood 201(H) 74 - 99 mg/dL LAB HEMATOLOGY METHOD 10/17/2024 11:54 AM EDT [facility] Ionized Calcium, Whole Blood 4.8 4.6 - 5.1 mg/dL LAB HEMATOLOGY METHOD 10/17/2024 11:54 AM EDT [facility] Lactate, Arterial, Whole Blood 2.3(H) 0.5 - 1.6 mmol/L LAB HEMATOLOGY METHOD 10/17/2024 11:54 AM EDT [facility] Blood Arterial blood specimen / Unknown Arterial Puncture / Unknown 10/17/2024 11:48 AM EDT 10/17/2024 11:53 AM EDT us Jenna Lopez CRNA LAB BLOOD ORDERABLES Final Re sult [facility] [address] [place] [address] * POCT ACT (10/17/2024 11:41 AM EDT) ACT+ (HIGH RANGE) 175 68 - 600 Seconds 10/29/2024 7:28 AM EDT [facility] LAB Glassblower ID Oneyda Alicea 10/29/2024 7:28 AM EDT [facility] ACT Device ID [id number] 10/29/2024 7:28 AM EDT [facility] Comment 10/29/2024 7:28 AM EDT [facility] Comment: ACT performed by [...] ST DOCKED DEVICE UNSOLICITED RESULTS Final Result [facility] [address] LAB [address] [place] [address] * POCT ACT (10/17/2024 11:11 AM EDT) ACT+ (HIGH RANGE) 252 68 - 600 Seconds 10/29/2024 7:28 AM EDT [facility] Glassblower ID Donna Mcmillan 10/29/2024 7:28 AM EDT [facility] ACT Device ID [id number] 10/29/2024 7:28 AM EDT [facility] Comment 10/29/2024 7:28 AM EDT [facility] Comment: ACT performed by [...] RESULTS Final Result [facility] [address] LAB [address] [place] [address] * (ABNORMAL) Blood gas, arterial (10/17/2024 10:46 AM EDT) pH, Arterial 7.35 7.31 - 7.42 LAB HEMATOLOGY METHOD 10/17/2024 10:56 AM EDT [facility] pCO2, Arterial 42 32 - 45 mmHg LAB HEMATOLOGY METHOD 10/17/2024 10:56 AM EDT [facility] pO2, Arterial 161 >80 mmHg LAB HEMATOLOGY METHOD 10/17/2024 10:56 AM EDT [facility] SO2, Measured, Arterial 100(H) 94 - 98 % LAB HEMATOLOGY METHOD 10/17/2024 10:56 AM EDT [facility] Base Excess, Arterial -2.2(L) -2.0 - 3.0 mmol/L LAB HEMATOLOGY METHOD 10/17/2024 10:56 AM EDT [facility] Bicarbonate, Calculated, Arterial 23 22 - 26 mmol/L LAB HEMATOLOGY METHOD 10/17/2024 10:56 AM EDT [facility] Hematocrit, Whole Blood 29.9(L) 40.0 - 51.0 % LAB HEMATOLOGY METHOD 10/17/2024 10:56 AM EDT [facility] Sodium, Whole Blood 138 136 - 145 mmol/L LAB HEMATOLOGY METHOD 10/17/2024 10:56 AM EDT [facility] Potassium, Whole Blood 4.0 3.6 - 4.9 mmol/L LAB HEMATOLOGY METHOD 10/17/2024 10:56 AM EDT [facility] Chloride, Whole Blood 110(H) 97 - 107 mmol/L LAB HEMATOLOGY METHOD 10/17/2024 10:56 AM EDT [facility] Glucose, Whole Blood 174(H) 74 - 99 mg/dL LAB HEMATOLOGY METHOD 10/17/2024 10:56 AM EDT [facility] Ionized Calcium, Whole Blood 5.1 4.6 - 5.1 mg/dL LAB HEMATOLOGY METHOD 10/17/2024 10:56 AM EDT [facility] Lactate, Arterial, Whole Blood 1.4 0.5 - 1.6 mmol/L LAB HEMATOLOGY METHOD 10/17/2024 10:56 AM EDT [facility] Blood Arterial blood specimen / Unknown Arterial Puncture / Unknown 10/17/2024 10:46 AM EDT 10/17/2024 10:54 AM EDT us Jenna Lopez CRNA LAB BLOOD ORDERABLES Final Re sult [facility] [address] [place] [address] * POCT ACT (10/17/2024 10:37 AM EDT) ACT+ (HIGH RANGE) 206 68 - 600 Seconds 10/29/2024 7:28 AM EDT [facility] Glassblower ID Donna Mcmillan 10/29/2024 7:28 AM EDT [facility] ACT Device ID [id number] 10/29/2024 7:28 AM EDT [facility] Comment 10/29/2024 7:28 AM EDT [facility] Comment: ACT performed by [...] ST DOCKED DEVICE UNSOLICITED RESULTS Final Result [facility] [address] LAB [address] [place] [address] * Surgical Pathology Exam (10/17/2024 10:27 AM EDT) Case Report Surgical Pathology Case: [id number] Authorizing Provider: Terrell Gautam MD Collected: 10/17/2024 1027 Ordering Location: [facility] Received: 10/17/2024 1325 Pathologist: Haydee Osborne MD Specimen: Other (specify site), left common femoral plaque 10/21/2024 10:16 AM EDT [facility] Final Diagnosis A. LEFT COMMON FEMORAL PLAQUE, EXCISION: - CALCIFIED PLAQUE 10/21/2024 10:16 AM EDT [facility] at 1016 EDT Clinical Information Critical limb ischemia of left lower extremity [I70.222] 10/21/2024 10:16 AM EDT [facility] Gross Description A. LEFT COMMON FEMORAL PLAQUE Received in formalin labeled l eft common femoral plaque , is one aggregate of red-gabriel hard portions of plaque measuring 3.7 x 2.5 x 0.9 cm. The specimen is serially sectioned and outreach representative sections are submitted in cassette A1. Cold Time: <1m Kenia Aceves 10/21/2024 10:16 AM EDT [facility] Note: A resident was involved in the service. I attest I examined the relevant preparations for the specimens and confirmed the diagnosis or interpretation. 10/21/2024 10:16 AM EDT [facility] Tissue Topography unknown / Unknown 10/17/2024 10:27 AM EDT 10/17/2024 1:25 PM EDT Comment:Pre-op diagnosis: Critical limb ischemia of left lower extremity [I70.222] us Terrell Gautam MD LAB PATHOLOGY ORDERABLES Gwen grimaldo Result [facility] [address] [place] [address] * POCT ACT (10/17/2024 10:03 AM EDT) ACT+ (HIGH RANGE) 244 68 - 600 Seconds 10/29/2024 7:28 AM EDT [facility] Glassblower ID Donna Mcmillan 10/29/2024 7:28 AM EDT [facility] ACT Device ID [id number] 10/29/2024 7:28 AM EDT [facility] Comment 10/29/2024 7:28 AM EDT [facility] Comment: ACT performed by [...] ST DOCKED DEVICE UNSOLICITED RESULTS Final Result [facility] [address] LAB [address] [place] [address] * (ABNORMAL) Blood gas, arterial (10/17/2024 9:45 AM EDT) pH, Arterial 7.37 7.31 - 7.42 LAB HEMATOLOGY METHOD 10/17/2024 9:55 AM EDT [facility] pCO2, Arterial 43 32 - 45 mmHg LAB HEMATOLOGY METHOD 10/17/2024 9:55 AM EDT [facility] pO2, Arterial 177 >80 mmHg LAB HEMATOLOGY METHOD 10/17/2024 9:55 AM EDT [facility] SO2, Measured, Arterial 100(H) 94 - 98 % LAB HEMATOLOGY METHOD 10/17/2024 9:55 AM EDT [facility] Base Excess, Arterial -0.5 -2.0 - 3.0 mmol/L LAB HEMATOLOGY METHOD 10/17/2024 9:55 AM EDT [facility] Bicarbonate, Calculated, Arterial 25 22 - 26 mmol/L LAB HEMATOLOGY METHOD 10/17/2024 9:55 AM EDT [facility] Hematocrit, Whole Blood 30.0(L) 40.0 - 51.0 % LAB HEMATOLOGY METHOD 10/17/2024 9:55 AM EDT [facility] Sodium, Whole Blood 137 136 - 145 mmol/L LAB HEMATOLOGY METHOD 10/17/2024 9:55 AM EDT [facility] Potassium, Whole Blood 4.3 3.6 - 4.9 mmol/L LAB HEMATOLOGY METHOD 10/17/2024 9:55 AM EDT [facility] Chloride, Whole Blood 108(H) 97 - 107 mmol/L LAB HEMATOLOGY METHOD 10/17/2024 9:55 AM EDT [facility] Glucose, Whole Blood 191(H) 74 - 99 mg/dL LAB HEMATOLOGY METHOD 10/17/2024 9:55 AM EDT [facility] Ionized Calcium, Whole Blood 5.0 4.6 - 5.1 mg/dL LAB HEMATOLOGY METHOD 10/17/2024 9:55 AM EDT [facility] Lactate, Arterial, Whole Blood 1.3 0.5 - 1.6 mmol/L LAB HEMATOLOGY METHOD 10/17/2024 9:55 AM EDT [facility] Blood Arterial blood specimen / Unknown Arterial Line / Unknown 10/17/2024 9:45 AM EDT 10/17/2024 9:52 AM EDT us Jenna Lopez [facility] BLOOD ORDERABLES Final Re sult [facility] [address] [place] [address] * (ABNORMAL) Blood gas, arterial (10/17/2024 8:47 AM EDT) pH, Arterial 7.37 7.31 - 7.42 LAB HEMATOLOGY METHOD 10/17/2024 8:59 AM EDT [facility] pCO2, Arterial 43 32 - 45 mmHg LAB HEMATOLOGY METHOD 10/17/2024 8:59 AM EDT [facility] pO2, Arterial 205 >80 mmHg LAB HEMATOLOGY METHOD 10/17/2024 8:59 AM EDT [facility] SO2, Measured, Arterial 100(H) 94 - 98 % LAB HEMATOLOGY METHOD 10/17/2024 8:59 AM EDT [facility] Base Excess, Arterial -0.3 -2.0 - 3.0 mmol/L LAB HEMATOLOGY METHOD 10/17/2024 8:59 AM EDT [facility] Bicarbonate, Calculated, Arterial 25 22 - 26 mmol/L LAB HEMATOLOGY METHOD 10/17/2024 8:59 AM EDT [facility] Hematocrit, Whole Blood 31.3(L) 40.0 - 51.0 % LAB HEMATOLOGY METHOD 10/17/2024 8:59 AM EDT [facility] Sodium, Whole Blood 138 136 - 145 mmol/L LAB HEMATOLOGY METHOD 10/17/2024 8:59 AM EDT [facility] Potassium, Whole Blood 4.0 3.6 - 4.9 mmol/L LAB HEMATOLOGY METHOD 10/17/2024 8:59 AM EDT [facility] Chloride, Whole Blood 108(H) 97 - 107 mmol/L LAB HEMATOLOGY METHOD 10/17/2024 8:59 AM EDT [facility] Glucose, Whole Blood 162(H) 74 - 99 mg/dL LAB HEMATOLOGY METHOD 10/17/2024 8:59 AM EDT [facility] Ionized Calcium, Whole Blood 5.2(H) 4.6 - 5.1 mg/dL LAB HEMATOLOGY METHOD 10/17/2024 8:59 AM EDT [facility] Lactate, Arterial, Whole Blood 1.7(H) 0.5 - 1.6 mmol/L LAB HEMATOLOGY METHOD 10/17/2024 8:59 AM EDT [facility] Blood Arterial blood specimen / Unknown Arterial Puncture / Unknown 10/17/2024 8:47 AM EDT 10/17/2024 8:58 AM EDT us Jenna Lopez [facility] BLOOD ORDERABLES Final Re sult [facility] [address] [place] [address] * POCT ACT (10/17/2024 8:46 AM EDT) ACT+ (HIGH RANGE) 101 68 - 600 Seconds 10/29/2024 7:28 AM EDT [facility] Glassblower ID HipolitoAdaDonna Maya 10/29/2024 7:28 AM EDT [facility] ACT Device ID [id number] 10/29/2024 7:28 AM EDT [facility] Comment 10/29/2024 7:28 AM EDT [facility] Comment: ACT performed by [...] UNSOLICITED RESULTS Final Result Performing Organization Address [facility] de Phone Number [facility] [address] LAB [address] [place] [address] * Type and Screen (10/17/2024 7:19 AM [...] ORDERAB LES Final Result Performing Organization Address [facility] de Phone Number BLOOD BANK [address] [place] [address] * (ABNORMAL) POCT glucose meter (10/17/2024 6:44 AM EDT) [facility] POCT Glucose 178(H) 74 - 99 [...] 10/17/2024 6:49 AM EDT [facility] Glassblower ID Hunter Burroughs 10/18/19 6:49 AM EDT [facility] Device ID [id number] 10/17/2024 6:49 AM EDT [facility] Specimen Type POC Capillary 10/17/2024 6:49 AM EDT [facility]ALTH[facility] Blood Capillary blood specimen / Unknown 10/17/2024 6:44 AM EDT 10/17/2024 6:49 AM EDT Terrell Gautam MD LAB POINT OF CARE TE ST DOCKED DEVICE UNSOLICITED RESULTS Final Result [facility] [address] [place] [address] documented in this encounter Visit Diagnoses Diagnosis [...] documented as of this encounter Care Teams Nuclear Instructor Relationship Specialty Start Date End Date Asad Victor MD [address] [place] [address] PCP - General 10/07/22 documented as of this encounter
--- OUTSIDE RECORDS SUMMARY | 2024-10-17 07:51 | XMS_ITS | Encounter Summary ---
Author Organization [facility] Address [address] [id number] Care Team Providers Care Child And Adolescent Psychologist Name Role Phone Asad Victor MD Primary Care Provider + [phone] Reason for Visit * Auth/Cert (Routine) Specialty Diagnoses / Procedures Referred By Contac t Referred To Contact Diagnoses Critical limb ischemia of left lower extremity Critical limb ischemia of left lower extremity [I70.222] Procedures [place] VEIN BYPASS GRAFT,FEM-POP CREATION, BYPASS, ARTERIAL, FEMORAL TO POPLITEAL Terrell Gautam MD [address] [facility] [address] [place] [address] Phone: tel: fax: PAV A OPERATING ROOM [address] [place] [address] Phone: tel: Referral ID Status Reason Start Date Expiration Date Visits Re quested Visits Authorized [id number] 1 1 Encounter Details Date Type Department Care Team (Late st Contact Info) Description 10/17/2024 7:51 AM EDT Anesthesia Event [facility] A OPERATING ROOM [address] [place] [phone] Maria Fernanda Mccallum MD [address] [place] [address] Anesthesia Record Procedure Summary Procedure [...] Surg; Left, Lower 10/17/24 0900 by Brad Ewnig RN Peripheral IV Placement Date: 09/25 07/19; Placement Time: 0715; Catheter Size: 20 G; Orientation: Right, Posterior; Location: Hand; Site Prep: Chlorhexidine ; Local Anesth: [place]; Technique: Anatomical landmarks; Inserted by: CHRISTIAN Acuna; [...] Removal Time: 1425 10/17/24 0825 by Jenna Lpoez CRNA 10/17/24 1425 by Keisha Waller RN [...] any time in the past 12 m [facility], were you homeless or living in [...] drink first t dino in the morning (EYE-SUPERVISOR REAL ESTATE OFFICE) to steady your nerves or to get [...] * Anesthesia Postprocedure Evaluation - Jenna Lopez, MOLDED PARTS INSPECTOR - 10/17/2024 1:29 PM EDT Patient: Mono [...] by Swetha Villareal MD Staffing Performed: ISH MOLDED PARTS INSPECTOR: Jenna Lopez CRNA * Anesthesia Procedure Notes - Jenna Lopez CRNA - 10/17/2024 9:00 AM EDT Associated Order(s): Airway Airway Date/Time: 10/17/2024 8:03 AM Reason: elective Airway not difficult General Information and Staff Patient location during procedure: OR MOLDED PARTS INSPECTOR: Jenna Lopez CRNA Performed: MOLDED PARTS INSPECTOR Patient Condition Indications for airway management: anesthesia [...] HTN, RLS who presented to [facility] with a large left common femoral [...] note 09/25/24 (media) + CAD s/p multiple MT's and 3V CABG 02/2019, 2 stents prior to CABG Atrial Fibrillation with RVR s/p CABG + carotid artery disease s/p R CEA 2016 + 3rd degree AV block MINE CAPTAIN-P placed 08/2023 for Wenkeback with 11 sec pause + HLD + HTN - controlled + PAD 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 CORONARY ANGIOPLASTY Left Coronary Angiography With Concomitant Left Heart Catheterization from [facility] ??? CORONARY ARTERY BYPASS GRAFT N/A 2018 [...] Description 11/26/2024 2:00 PM EDT Hospital Encounter [facility] [address] [place] [address] 11/26/2024 2:30 PM EDT Hospital Encounter [facility] [address] [place] [address] 11/26/2024 3:20 PM EDT Office Visit [facility] [address] [place] [address] Elisabet Schuster, GLENDA [address] [facility] [address] [place] [address] 11/29/2024 2:30 PM EDT Office Visit [facility] [address] [place] [address] Oscar Appiah MD [facility] [address] [place] [address] documented as of this encounter Goals Goal [...] ANESTHESIA PLACEHOLDER Routine 10/17/2024 8:03 AM EDT MI AN ELECTIVE ENDOTRACHEAL AIRWAY Routine 10/17/2024 8:03 [...] Performed by Swetha Villareal MD Staffing Performed: MOLDED PARTS INSPECTOR MOLDED PARTS INSPECTOR: Jenna Lopez CRNA Maria Fernanda Mccallum MD ANESTHESIA ORDERABLES Edite d Result - Final * MI AN ELECTIVE ENDOTRACHEAL AIRWAY, PB ANESTHESIA PLACEHOLDER (10/17/2024 8:03 AM EDT) Narrative Jenna Lopez CRNA - 10/17/2024 8:03 AM EDT Jenna Lopez CRNA 10/17/2024 9:00 AM Airway Date/Time: 10/17/2024 8:03 AM Reason: elective Airway not difficult General Information and Staff Patient location during procedure: OR MOLDED PARTS INSPECTOR: Jenna Lopez CRNA Performed: ISH Patient Condition [...] Mccallum MD ANESTHESIA ORDERABLES Final Result * [facility] AN POCUS CARDIAC PROCDOC (10/17/2024 7:18 AM [...] Trace AR. The images were Saved in [employer]. The study was technically adequate. [...] documented as of this encounter Care Teams Child And Adolescent Psychologist Relationship Specialty Start Date End Date Asad Victor MD [address] [place] [address] PCP - General 10/07/22 documented as of this encounter
--- OUTSIDE RECORDS SUMMARY | 2024-10-17 08:00 | XMS_ITS | Encounter Summary ---
Author Organization [facility] Address [address] [place] [address] Care Team Providers Care Furnace Charging Machine Operator Name Role Phone Asad Victor MD Primary Care Provider + [phone] Reason for Visit * Auth/Cert (Routine) Specialty Diagnoses / Procedures Referred By Contac t Referred To Contact Diagnoses Critical limb ischemia of left lower extremity Critical limb ischemia of left lower extremity [I70.222] Procedures [place] VEIN BYPASS GRAFT,FEM-POP CREATION, BYPASS, ARTERIAL, FEMORAL TO POPLITEAL Terrell Gautam MD [address] [address] Phone: tel: fax: [facility] [address] [place] [address] Phone: tel: Referral ID Status Reason Start Date Expiration Date Visits Re quested Visits Authorized [id number] 1 1 Encounter Details Date Type Department Care Team (Late st Contact Info) Description 10/17/2024 8:00 AM EDT - 10/17/2024 2:50 PM EDT Surgery [facility] [address] [place] [address] Terrell Gautam MD [address] [address] CREATION, BYPASS, ARTERIAL, FEMORAL TO POPLITEAL [30850 (CPT )] Surgery Details Date/Time Status Location [...] the past [address] [facility], were you homeless or living in a [...] drink first t dino in the morning (EYE-COMPUTER GRAPHIC ARTIST) to steady your nerves or to get rid of a hangover? 0 10/18/2021 CAGE Questionnaire Score 0 022 Utilities Answer Date Recorded In the past 12 months has th e [employer], gas, oil, or water [employer] threatened to shut off services in your [...] provided Taken 10/17/20242107 by Jourdan Grimes II, working manager Review/Management: medications reviewed Problem: Skin Injury [...] Ongoing, Progressing Intervention: Promote Activity and Functional Stanley Flowsheets (Taken 10/19/2024 1048) Self-Care Promotion: BADL personal objects within reach meal set-up provided * Yuni Ramires - Keyla Chow - 10/19/2024 11:45 AM EDT Images from the original note were not included. [id number] After Peripheral Artery Bypass Surgery: In the [...] home. Last Reviewed Date: 2023 00:00:00 ?? [id number] [employer]. All rights reserved. This information is not intended as a substitute for professional medical care. Always follow your healthcare professional's instructions. * Progress Notes - Emelina Friend - 10/19/2024 11:44 AM EDT Case Management Adult Progress Note Bev Bobby 64 y.o. male CSN: [id number] Admission: 10/17/2024 6:21 AM Primary Problem: Critical [...] if any other needs arise. Emelina Friend AUTOMOBILE CLUB INFORMATION CLERK, ASSISTANT WRESTLING COACH Social Work Case Management * Yuni Ramires - Keyla Chow - 10/19/2024 11:44 AM EDT Images from the original note were not included. [id number] Peripheral Artery Disease (PAD) Peripheral artery disease [...] cause. Last Reviewed Date: 2024 00:00:00 ?? [id number] [employer]. All rights reserved. This information is not intended as a substitute for professional medical care. Always follow your healthcare professional's instructions. * Yuni Ramires - Keyla Chow - 10/19/2024 11:44 AM EDT Images from the original note were not included. [id number] Leg Artery Emergencies: Critical Limb Ischemia (CLI) [...] appointments. Last Reviewed Date: 2023 00:00:00 ?? [id number] [employer]. All rights reserved. This information is not intended as a substitute for professional medical care. Always follow your healthcare professional's instructions. * Discharge Summary - Dandy Baltazar MD - 10/19/2024 11:31 AM EDT Hospitalization Admit Date/Time: 10/17/2024 6:21 AM Admitting Attending: Terrell Gautam Discharge Date: 10/19/24 Discharge Attending Physician: Nirmal Cueto MD PCP name and Address: Asad Victor MD (Inactive) [address] [facility] [address] Referring provider name and address: Timothy Marques PA [address] [facility] [address] [facility] [place] [address] Chief Concern, Brief History of Present Illness, and Hospital Course Bev Bobby is an 64 y.o. 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 [...] sent to [facility] [place], [place] - [address] [facility] [facility] [address] acetaminophen 500 MG tablet clopidogrel 75 MG [...] of water. Outpatient Follow-Up Follow up with [facility] Associated diagnoses: Balloon like swelling in an artery of the leg Critical limb ischemia of left lower extremity [address] 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 [...] provided Taken 10/17/20242107 by Jourdan Grimes II working manager Review/Management: medications reviewed Problem: Skin Injury [...] Ongoing, Progressing Intervention: Promote Activity and Functional Stanley Flowsheets (Taken 10/19/2024 1048) Self-Care Promotion: BADL [...] evaluation. PARTICIPANTS IN CARE Visitors Present No Brick Carrier (if applicable) PRESENTATION Oxygen Oxygen Therapy: [...] Level of Mobility Ambulatory- household only Mobility Stanley Independent gait with device (rollator) History of [...] numbness in rodney) BED MOBILITY Level of Stanley Physical/Non- physical Assist Adaptive Equipment Utilized Rolling/ Turning Scooting/ Bridging Modified independence (anteriorly to EOB) Bed rails Supine to Sit Modified Stanley (to the right) (HOB flat) Bed rails Sit to Supine Interventions HOB flat to simulate home environment TRANSFERS Level of Stanley Physical/Non- physical Assist Adaptive Equipment Utilized Sit [...] stable surfaces during transitions. AMBULATION Level of Stanley Distance Adaptive Equipment Utilized Ambulation Standby assist, [...] Posture: Forward head, Rounded shoulders Level of Stanley Balance Support Interventions Static Sit Independent Right [...] Assessments Standardized Assessments: AMPA 6-Clicks Mobility Assessment [facility] 6-Clicks Mobility Assessment Difficulty patient has turning [...] 3-5 steps with a railing?: A little [facility] 6-Clicks Mobility Assessment Total : 22 ASSESSMENT [...] evaluation/session. Participants in Care Family/Caregiver Present: No Brick Carrier: Not Applicable Presentation Oxygen Therapy: None [...] Level of Mobility: Ambulatory- household only Mobility Stanley: Independent gait with device (rollator) History of [...] Mobility Bed Mobility Exam: Scooting/Bridging Level of Stanley: Modified independence (anteriorly to EOB) Assistive Device: Bed rails Bed Mobility Exam: Supine to Sit Level of Stanley: Modified Stanley (to the right) Physical/Nonphysical Assist: (HOB flat) Assistive Device: Bed rails Transfers Transfer Exam: Sit to stand Level of Stanley: Stand-by assist Physical/Nonphysical Assist: Supervision, Verbal Cues, Minimal cues Assistive Device: Walker, rolling Transfer Exam: Stand to Sit Level of Stanley: Stand-by assist Physical/Nonphysical Assist: Supervision, Verbal Cues, [...] 6 Click - Daily Activities Score: 23/24 [facility] Scoring Interpretation: Scores greater than 20.5 suggest [...] Note Bev Bobby 64 y.o. male CSN: [id number] Admission: 10/17/2024 6:21 AM Primary Problem: Critical limb ischemia of left lower extremity Pigment Presser reviewed chart and spoke with patient to complete this Initial Case Management Assessment. PCP: Asad Victor MD (Inactive) - Dr. Palomo Preferred pharmacy is [facility] Emergency Contact: Extended Emergency Contact Information Primary Emergency Contact: Patti Hill Relation: Sister Brick Carrier needed? No Insurance: Primary Visit Coverage Payer Plan Sponsor Code Group Number Group Name [facility] MEDICARE [facility] MEDICARE REPLACEMENT [id number] Primary Visit Coverage Subscriber Subscriber ID Subscriber Name Subscriber [facility] Subscriber Address [id number] BEV BOBBY [id number] [place] [address] Secondary Visit Coverage Payer Plan Sponsor Code Group Number Group Name [employer] [facility] MED[employer] [facility]OB [facility] Secondary Visit Coverage Subscriber Subscriber ID Subscriber Name Subscriber [facility] Subscriber Address [id number] BEV BOBBY [id number] [place] [address] Patient information: Primary Caregiver: Self Daily Living Activities: Functional Status: Independent Living Arrangements: Alone Type of Residence: Private residence, Single Level [address] [place] [address] Current DME: Equipment Currently Used at Home: joy monterroso Income Information: Income Source: Retired Income/Expense Information: Income meets expenses Current Resources Utilized: Food Lawler Housing Circumstances-Z Codes: Housing Circumstances (select all [...] Dialysis Services: None. Living Will/Advance Directive/Power of Preassembler And Inspector /Guardian: Denied. Additional Comments: Patient is not medically ready for discharge. SW will continue to follow. Mariia Monterroso ASSISTANT WRESTLING COACH * Care Plan - Emilia Alonso RN [...] from the original note were not included. [facility] Department of Surgery Division of [...] Prevention: activity supervised assistive device/personal items within [facility] fall prevention program maintained lighting adjusted [...] Agree with above assessment and evaluation from resident/DEPARTMENTAL SHIPPING CLERK. * Op Note - Terrell Gautam MD - 10/17/2024 8:52 AM EDT Operative Note Date: 10/17/24 Location: [place] [facility] Name: Bev Bobby, : 1960, Diagnoses: Pre-op Diagnosis Critical limb ischemia of left lower extremity Common femoral artery pseudoaneurysm Post-op Diagnosis Critical limb ischemia of left lower extremity Common femoral artery pseudoaneurysm Procedure(s): Left common/superficial/profunda femoral thromboendarterectomy with bovine patch repair Left external iliac artery/GAME ATTENDANT stent Attending Surgeon(s): * Terrell Gautam - Primary Brokerage Office Manager(s): * Luna Beckett MD - Resident [...] Necessity Reasons Recent surgery contiguous with urinary tract/TOWER SWITCH OPERATOR/colorectal 10/17/24 190 Output (mL) 50 mL 10/18/24 08 Implants Type Name Action Serial No. VASCUGUARD 8 X 8 - [id number] Implanted STENT ENDOPROSTHESIS VIABAHN 9FR [id number] - [id number] Implanted [id number] Specimen: Specimens ID Source Frozen? 1 Other [...] and distal control. We then proceeded with jejoj-wxz-ezfc exposure of the popliteal artery. A medial [...] balloon dilated thestent with a 9 mm [place]. We closed the arteriotomy with a single [...] 10/17/2024 8:52 AM EDT Date: 10/17/24 Location: [place] [facility] Name: Bev Bobby, : 1960, Diagnoses: Pre-op Diagnosis Critical limb ischemia of left lower extremity Common femoral artery pseudoaneurysm Post-op Diagnosis Critical limb ischemia of left lower extremity Common femoral artery pseudoaneurysm Procedure(s): Left common/superficial/profunda femoral thromboendarterectomy with bovine patch repair Left external iliac artery/GAME ATTENDANT stent Attending Surgeon(s): * Terrell Gautam - Primary Brokerage Office Manager(s): * Luna Beckett MD - Resident - Assisting * Dandy Baltazar MD - Fellow Anesthesia: General ASA: III Blood Administration: Blood Product Administration History None Estimated Blood Loss: 300 mL Drains: Urethral Catheter Temperature probe 16 Fr. (Active) Implants Type Name Action Serial No. VASCUGUARD 8 X 8 - [id number] Implanted STENT ENDOPROSTHESIS VIABAHN 9FR [id number] - [id number] Implanted [id number] Specimen: Specimens ID Source Frozen? 1 Other [...] issues. 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 He previouslyunderwent thrombin injection. He reports pain in his calves. He presents today for scheduled left lower extremity femoral to bpbym-[id number]-[id number] popliteal bypass. Planned likely use PTFE. He [...] 16. Results Review {Vanishing Link Review Results :[id number] I have reviewed the latest lab and imaging results. Assessment & Plan Critical limb ischemia of left lower extremity Proceed with scheduled surgery left lower extremity femoral to lodai-wlq-dlfc popliteal artery bypass graft. Extensive discussion had [...] [facility] [address] [place] [address] 11/26/2024 2:30 PM EDT Hospital Encounter [facility] [address] [place] [address] 11/26/2024 3:20 PM EDT Office Visit [facility] [address] [facility] 5th Floor [address], [address] [place] [address] Elisabet Schuster, PA [address] [facility] [address] [place] [address] 11/29/2024 2:30 PM EDT Office Visit [facility] [address] [place] [address] Oscar Appiah MD [address] [facility] [address] [place] [address] Pending Results Name Type Priority Associated Diagnoses [...] POCT glucose meter (10/19/2024 11:40 AM EDT) [facility] POCT Glucose 207(H) 74 - 99 mg/dL [...] Comment 10/19/2024 11:42 AM EDT HEALTHCARE LAB Agricultural Plow Operator ID KamranJob 10/20/19 11:42 AM EDT HEALTHCARE LAB Device ID [id number] 10/19/2024 11:42 AM EDT HEALTHCARE LAB Specimen Type POC Capillary 10/19/2024 11:42 AM EDT [facility] Blood Capillary blood specimen / Unknown 10/19/2024 11:40 AM EDT 10/19/2024 11:42 AM EDT us Terrell Gautam MD LAB POINT OF CARE TE ST DOCKED DEVICE UNSOLICITED RESULTS Final Result Performing Organization Address City/State/[facility] Co de Phone Number [facility] [address] [place] [address] * (ABNORMAL) Protime-INR (10/19/2024 8:25 AM EDT) [facility] Prothrombin Time 17.5(H) 12.0 - 14.3 sec LAB COAGULATION METHOD 10/19/2024 9:25 AM EDT [facility] INR 1.4(H) 0.9 - 1.1 LAB COAGULATION METHOD 10/19/2024 9:25 AM EDT [facility] Blood Venous blood specimen / Unknown Venipuncture / Unknown 10/19/2024 8:25 AM EDT 10/19/2024 8:43 AM EDT Narrative [facility] - 10/19/2024 9:25 AM [...] BLOOD ORDERABLES Final Result Performing Organization Address [facility]/ZIP Co de Phone Number [facility] [address] [place] [address] * (ABNORMAL) Phosphorus (10/19/2024 8:25 AM EDT) Phosphorus, Plasma 2.2(L) 2.5 - 4.5 mg/dL 10/19/2024 9:12 AM EDT [facility] Blood Venous blood specimen / Unknown Venipuncture / Unknown 10/19/2024 8:25 AM EDT 10/19/2024 8:43 AM EDT us Nirmal Cueto MD LAB BLOOD ORDERABLES Final Result Performing Organization Address [facility] Co de Phone Number [facility] [address] [place] [address] * Magnesium (10/19/2024 8:25 AM EDT) Magnesium, Plasma 2.1 1.9 - 2.4 mg/dL 10/19/2024 9:12 AM EDT [facility] Blood Venous blood specimen / Unknown Venipuncture / Unknown 10/19/2024 8:25 AM EDT 10/19/2024 8:43 AM EDT Nirmal Cueto MD LAB BLOOD ORDERABLES Final Result Performing Organization Address [facility] Co de Phone Number [facility] [address] [place] [address] * (ABNORMAL) Basic metabolic panel (10/19/2024 8:25 AM EDT) Glucose, Plasma 191(H) 74 - 99 mg/dL 10/19/2024 9:12 AM EDT [facility] BUN, Plasma 18 8 - 23 mg/dL 10/19/2024 9:12 AM EDT [facility] Creatinine, Plasma 0.76 0.70 - 1.20 mg/dL 10/19/2024 9:12 AM EDT [facility] BUN/Creatinine Ratio 24 10/19/2024 9:12 AM EDT [facility] Sodium, Plasma 135(L) 136 - 145 mmol/L 10/19/2024 9:12 AM EDT [facility] Potassium, Plasma 4.1 3.6 - 4.9 mmol/L 10/19/2024 9:12 AM EDT [facility] Chloride, Plasma 104 97 - 107 mmol/L 10/19/2024 9:12 AM EDT [facility] CO2, Plasma 22 22 - 29 mmol/L 10/19/2024 9:12 AM EDT [facility] Anion Gap 9 6 - 16 mmol/L 10/19/2024 9:12 AM EDT [facility] Total Calcium, Plasma 8.4(L) 8.9 - 10.2 mg/dL 10/19/2024 9:12 AM EDT [facility] eGFRcr 99.7 mL/min/1.7 3m*2 10/19/2024 9:12 AM EDT [facility] Comment:Reported eGFRcr in m L/min/1.73m2 is based the CKD-EPI 2020 equation that does not use a race coefficient. Blood Venous blood specimen / Unknown Venipuncture / Unknown 10/19/2024 8:25 AM EDT 10/19/2024 8:43 AM EDT us Nirmal Cueto MD LAB BLOOD ORDERABLES Final Result [facility] [address] [place] [address] * (ABNORMAL) CBC W/O Differential (10/19/2024 8:25 AM EDT) WBC Count 14.10(H) 3.70 - 10.30 10*3/uL LAB HEMATOLOGY METHOD 10/19/2024 8:52 AM EDT [facility] RBC Count 2.61(L) 4.60 - 6.10 10*6/uL LAB HEMATOLOGY METHOD 10/19/2024 8:52 AM EDT [facility] HGB 8.0(L) 13.7 - 17.5 g/dL LAB HEMATOLOGY METHOD 10/19/2024 8:52 AM EDT [facility] HCT 24.3(L) 40.0 - 51.0 % LAB HEMATOLOGY METHOD 10/19/2024 8:52 AM EDT [facility] Platelet Count 318 155 - 369 10*3/uL LAB HEMATOLOGY METHOD 10/19/2024 8:52 AM EDT [facility] MCV 93 79 - 98 fL LAB HEMATOLOGY METHOD 10/19/2024 8:52 AM EDT [facility] MCH 30.7 26.0 - 32.0 pg LAB HEMATOLOGY METHOD 10/19/2024 8:52 AM EDT [facility] MCHC 32.9 30.7 - 35.5 g/dL LAB HEMATOLOGY METHOD 10/19/2024 8:52 AM EDT [facility] RDW 13.4 11.5 - 14.5 % LAB HEMATOLOGY METHOD 10/19/2024 8:52 AM EDT [facility] MPV 9.6 8.8 - 12.5 fL LAB HEMATOLOGY METHOD 10/19/2024 8:52 AM EDT [facility] nRBC 0.0 <=0.0 per 100 WBCs LAB HEMATOLOGY METHOD 10/19/2024 8:52 AM EDT [facility] Blood Venous blood specimen / Unknown Venipuncture / Unknown 10/19/2024 8:25 AM EDT 10/19/2024 8:44 AM EDT us Nirmal Cueto MD LAB BLOOD ORDERABLES Final Result [facility] [address] [place] [address] * (ABNORMAL) POCT glucose meter (10/19/2024 7:35 AM EDT) [facility] POCT Glucose 187(H) 74 - 99 mg/dL [...] Comment 10/19/2024 7:37 AM EDT HEALTHCARE LAB Agricultural Plow Operator ID Job Andrew 10/20/19 7:37 AM EDT HEALTHCARE LAB Device ID [id number] 10/19/2024 7:37 AM EDT HEALTHCARE LAB Specimen Type POC Capillary 10/19/2024 7:37 AM EDT HEALTHCARE LAB Blood Capillary blood specimen / Unknown 10/19/2024 7:35 AM EDT 10/19/2024 7:37 AM EDT us Terrell Gautam MD LAB POINT OF CARE TE ST DOCKED DEVICE UNSOLICITED RESULTS Final Result Performing Organization Address City/State/[facility] Co de Phone Number [facility] LAB [address] [place] [address] * (ABNORMAL) POCT glucose meter (10/18/2024 7:22 [...] Comment 10/18/2024 7:24 PM EDT HEALTHCARE LAB Agricultural Plow Operator ID Mahesh Aldana 10/18/2024 7:24 PM EDT HEALTHCARE LAB Device ID [id number] 10/18/2024 7:24 PM EDT HEALTHCARE LAB Specimen Type POC Capillary 10/18/2024 7:24 PM EDT HEALTHCARE LAB Blood Capillary blood specimen / Unknown 10/18/2024 7:22 PM EDT 10/18/2024 7:24 PM EDT us Terrell Gautam MD LAB POINT OF CARE TE ST DOCKED DEVICE UNSOLICITED RESULTS Final Result Performing Organization Address City/[facility] Co de Phone Number [facility] [address] [place] [address] * (ABNORMAL) POCT glucose meter (10/18/2024 6:07 PM EDT) [facility] POCT Glucose 167(H) 74 - 99 mg/dL [...] Comment 10/18/2024 6:09 PM EDT HEALTHCARE LAB Agricultural Plow Operator ID David Parks 10/18/2024 6:09 PM EDT HEALTHCARE LAB Device ID [id number] 10/18/2024 6:09 PM EDT HEALTHCARE LAB Specimen Type POC Capillary 10/18/2024 6:09 PM EDT [facility] Blood Capillary blood specimen / Unknown 10/18/2024 6:07 PM EDT 10/18/2024 6:09 PM EDT Terrell Gautam MD LAB POINT OF CARE TE ST DOCKED DEVICE UNSOLICITED RESULTS Final Result Performing Organization Address City/[facility] Co de Phone Number [facility] [address] [place] [address] * (ABNORMAL) POCT glucose meter (10/18/2024 11:56 AM EDT) [facility] POCT Glucose 233(H) 74 - 99 mg/dL [...] 10/21/2024 7:42 AM EDT [facility] Agricultural Plow Operator ID Venessa Marcano 10/21/2024 7:42 AM EDT [facility] Device ID [id number] 10/21/2024 7:42 AM EDT HEALTHCARE LAB Specimen Type POC Capillary 10/21/2024 7:42 AM EDT HEALTHCARE LAB Blood Capillary blood specimen / Unknown 10/18/2024 11:56 AM EDT 10/21/2024 7:42 AM EDT us Terrell Gautam MD LAB POINT OF CARE TE ST DOCKED DEVICE UNSOLICITED RESULTS Final Result Performing Organization Address [facility] Co de Phone Number [facility] [address] [place] [address] * (ABNORMAL) POCT glucose meter (10/18/2024 9:24 AM EDT) [facility] POCT Glucose 322(H) 74 - 99 [...] Comment 10/21/2024 7:42 AM EDT HEALTHCARE LAB Agricultural Plow Operator ID Emilia Alonso 7:42 AM EDT HEALTHCARE LAB Device ID [id number] 10/21/2024 7:42 AM EDT HEALTHCARE LAB Specimen Type POC Venous 10/21/2024 7:42 AM EDT HEALTHCARE LAB Blood Venous blood specimen / Unknown 10/18/2024 9:24 AM EDT 10/21/2024 7:42 AM EDT us Terrell Gautam MD LAB POINT OF CARE TE ST DOCKED DEVICE UNSOLICITED RESULTS Final Result Performing Organization Address City/[facility] Co de Phone Number [facility] [address] [place] [address] * (ABNORMAL) POCT glucose meter (10/18/2024 7:36 AM EDT) [facility] POCT Glucose 215(H) 74 - 99 [...] Comment 10/18/2024 7:38 AM EDT HEALTHCARE LAB Agricultural Plow Operator ID Kizzy Godfrey 025 7:38 AM EDT HEALTHCARE LAB Device ID [id number] 10/18/2024 7:38 AM EDT [facility] Specimen Type POC Capillary 10/18/2024 7:38 AM EDT [facility] Blood Capillary blood specimen / Unknown 10/18/2024 7:36 AM EDT 10/18/2024 7:38 AM EDT us Terrell Gautam MD LAB POINT OF CARE TE ST DOCKED DEVICE UNSOLICITED RESULTS Final Result [facility] [address] [place] [address] * (ABNORMAL) CBC (10/18/2024 2:09 AM EDT) [facility] WBC Count 16.71(H) 3.70 - 10.30 10*3/uL LAB HEMATOLOGY METHOD 10/18/2024 2:33 AM EDT [facility] RBC Count 2.78(L) 4.60 - 6.10 10*6/uL LAB HEMATOLOGY METHOD 10/18/2024 2:33 AM EDT [facility] HGB 8.5(L) 13.7 - 17.5 g/dL LAB HEMATOLOGY METHOD 10/18/2024 2:33 AM EDT [facility] HCT 25.7(L) 40.0 - 51.0 % LAB HEMATOLOGY METHOD 10/18/2024 2:33 AM EDT [facility] Platelet Count 324 155 - 369 10*3/uL LAB HEMATOLOGY METHOD 10/18/2024 2:33 AM EDT [facility] MCV 92 79 - 98 fL LAB HEMATOLOGY METHOD 10/18/2024 2:33 AM EDT [facility] MCH 30.6 26.0 - 32.0 pg LAB HEMATOLOGY METHOD 10/18/2024 2:33 AM EDT [facility] MCHC 33.1 30.7 - 35.5 g/dL LAB HEMATOLOGY METHOD 10/18/2024 2:33 AM EDT [facility] RDW 13.3 11.5 - 14.5 % LAB HEMATOLOGY METHOD 10/18/2024 2:33 AM EDT [facility] MPV 9.4 8.8 - 12.5 fL LAB HEMATOLOGY METHOD 10/18/2024 2:33 AM EDT [facility] nRBC 0.0 <=0.0 per 100 WBCs LAB HEMATOLOGY METHOD 10/18/2024 2:33 AM EDT [facility] Blood Venous blood specimen / Unknown Venipuncture / Unknown 10/18/2024 2:09 AM EDT 10/18/2024 2:25 AM EDT Nirmal Cueto MD LAB BLOOD ORDERABLES Final Result [facility] [address] [place] [address] * (ABNORMAL) Basic metabolic panel (10/18/2024 2:09 AM EDT) Glucose, Plasma 206(H) 74 - 99 mg/dL 10/18/2024 2:53 AM EDT [facility] BUN, Plasma 24(H) 8 - 23 mg/dL 10/18/2024 2:53 AM EDT [facility] Creatinine, Plasma 1.17 0.70 - 1.20 mg/dL 10/18/2024 2:53 AM EDT [facility] BUN/Creatinine Ratio 21 10/18/2024 2:53 AM EDT [facility] Sodium, Plasma 136 136 - 145 mmol/L 10/18/2024 2:53 AM EDT [facility] Potassium, Plasma 4.8 3.6 - 4.9 mmol/L 10/18/2024 2:53 AM EDT [facility] Chloride, Plasma 104 97 - 107 mmol/L 10/18/2024 2:53 AM EDT [facility] CO2, Plasma 22 22 - 29 mmol/L 10/18/2024 2:53 AM EDT [facility] Anion Gap 10 6 - 16 mmol/L 10/18/2024 2:53 AM EDT [facility] Total Calcium, Plasma 8.5(L) 8.9 - 10.2 mg/dL 10/18/2024 2:53 AM EDT [facility] eGFRcr 69.2 mL/min/1.7 3m*2 10/18/2024 2:53 AM EDT [facility] Comment:Reported eGFRcr in m L/min/1.73m2 is based the CKD-EPI 2020 equation that does not use a race coefficient. Blood Venous blood specimen / Unknown Venipuncture / Unknown 10/18/2024 2:09 AM EDT 10/18/2024 2:25 AM EDT Nirmal Cueto MD LAB BLOOD ORDERABLES Final Result Performing Organization Address City/[facility]/ZIP Co de Phone Number [facility] [address] [place] [address] * (ABNORMAL) Magnesium (10/18/2024 2:09 AM EDT) Magnesium, Plasma 1.8(L) 1.9 - 2.4 mg/dL 10/18/2024 2:53 AM EDT [facility] Blood Venous blood specimen / Unknown Venipuncture / Unknown 10/18/2024 2:09 AM EDT 10/18/2024 2:25 AM EDT Nirmal Cueto MD LAB BLOOD ORDERABLES Final Result [facility] [address] [place] [address] * Phosphorus (10/18/2024 2:09 AM EDT) Phosphorus, Plasma 3.7 2.5 - 4.5 mg/dL 10/18/2024 2:53 AM EDT [facility] Blood Venous blood specimen / Unknown Venipuncture / Unknown 10/18/2024 2:09 AM EDT 10/18/2024 2:25 AM EDT Nirmal Cueto MD LAB BLOOD ORDERABLES Final Result Performing Organization Address [facility] Co de Phone Number [facility] [address] [place] [address] * (ABNORMAL) Protime-INR (10/18/2024 2:09 AM EDT) Prothrombin Time 14.5(H) 12.0 - 14.3 sec LAB COAGULATION METHOD 10/18/2024 2:53 AM EDT [facility] INR 1.1 0.9 - 1.1 LAB COAGULATION METHOD 10/18/2024 2:53 AM EDT [facility] Blood Venous blood specimen / Unknown Venipuncture / Unknown 10/18/2024 2:09 AM EDT 10/18/2024 2:25 AM EDT Narrative [facility] - 10/18/2024 2:53 AM [...] BLOOD ORDERABLES Final Result Performing Organization Address [facility] Co de Phone Number [facility] [address] [place] [address] * (ABNORMAL) POCT glucose meter (10/18/2024 2:08 AM EDT) POCT Glucose 202(H) 74 - 99 mg/dL 10/18/2024 2:10 AM EDT [facility] Comment:Accuracy of a glucos [...] Comment 10/18/2024 2:10 AM EDT [facility] Agricultural Plow Operator ID Jourdan Grimes II 10/18/2024 2:10 AM EDT [facility] LAB Device ID [id number] 10/18/2024 2:10 AM EDT [facility] Specimen Type POC Capillary 10/18/2024 2:10 AM EDT [facility] Blood Capillary blood specimen / Unknown 10/18/2024 2:08 AM EDT 10/18/2024 2:10 AM EDT us Terrell Gautam MD LAB POINT OF CARE TE ST DOCKED DEVICE UNSOLICITED RESULTS Final Result Performing Organization Address City/State/[facility] Phone Number [facility]ARE [facility] [address] [place] [address] * (ABNORMAL) POCT glucose meter (10/17/2024 10:07 PM EDT) [facility] POCT Glucose 300(H) 74 - 99 mg/dL [...] Comment 10/17/2024 10:10 PM EDT [facility] Agricultural Plow Operator ID Jourdan Grimes II 10/17/2024 10:10 PM EDT [facility] LAB Device ID [id number] 10/17/2024 10:10 PM EDT [facility] Specimen Type POC Capillary 10/17/2024 10:10 PM EDT [facility] Blood Capillary blood specimen / Unknown 10/17/2024 10:07 PM EDT 10/17/2024 10:10 PM EDT us Terrell Gautam MD LAB POINT OF CARE TE ST DOCKED DEVICE UNSOLICITED RESULTS Final Result Performing Organization Address City/State/[facility] Co de Phone Number [facility] [address] [place] [address] * (ABNORMAL) POCT glucose meter (10/17/2024 8:07 PM EDT) [facility] POCT Glucose 391(H) 74 - 99 [...] Comment 10/17/2024 8:10 PM EDT [facility] Agricultural Plow Operator ID Cornelio WALTERS Jourdan 10/17/2024 8:10 PM EDT [facility] LAB Device ID [id number] 10/17/2024 8:10 PM EDT [facility] Specimen Type POC Capillary 10/17/2024 8:10 PM EDT [facility] Blood Capillary blood specimen / Unknown 10/17/2024 8:07 PM EDT 10/17/2024 8:10 PM EDT Terrell Gautam MD LAB POINT OF CARE TE ST DOCKED DEVICE UNSOLICITED RESULTS Final Result Performing Organization Address [facility] Co de Phone Number [facility] [address] [place] [address] * (ABNORMAL) POCT glucose meter (10/17/2024 4:01 PM EDT) [facility] POCT Glucose 249(H) 74 - 99 [...] 10/17/2024 4:03 PM EDT [facility] Agricultural Plow Operator ID hCelsieamanda Keisha 10/17/2024 4:03 PM EDT [facility] Device ID [id number] 10/17/2024 4:03 PM EDT [facility] Specimen Type POC Capillary 10/17/2024 4:03 PM EDT [facility] Blood Capillary blood specimen / Unknown 10/17/2024 4:01 PM EDT 10/17/2024 4:03 PM EDT us Terrell Gautam MD LAB POINT OF CARE TE ST DOCKED DEVICE UNSOLICITED RESULTS Final Result Performing Organization Address City/[facility] Co de Phone Number [facility] [address] [place] [address] * (ABNORMAL) POCT glucose meter (10/17/2024 1:25 PM EDT) [facility] Signature POCT Glucose 225(H) 74 - [...] 10/17/2024 1:27 PM EDT [facility] Agricultural Plow Operator ID Kizzy Godfrey 025 1:27 PM EDT [facility] Device ID [id number] 10/17/2024 1:27 PM EDT [facility] Specimen Type POC Capillary 10/17/2024 1:27 PM EDT [facility] Blood Capillary blood specimen / Unknown 10/17/2024 1:25 PM EDT 10/17/2024 1:27 PM EDT us Terrell Gautam MD LAB POINT OF CARE TE ST DOCKED DEVICE UNSOLICITED RESULTS Final Result Performing Organization Address City/[facility] Co de Phone Number [facility] [address] [place] [address] * [place] Less than 1 Hour Intraoperative [...] Seconds 10/29/2024 7:28 AM EDT [facility] Agricultural Plow Operator ID Donna Mcmillan 10/29/2024 7:28 AM EDT [facility] ACT Device ID [id number] 10/29/2024 7:28 AM EDT [facility] Comment 10/29/2024 7:28 AM EDT [facility] Comment: ACT performed by [...] RESULTS Final Result Performing Organization Address City/[facility] de Phone Number [facility] [address] LAB [address] [place] [address] * (ABNORMAL) Blood gas, arterial (10/17/2024 11:48 AM EDT) pH, Arterial 7.34 7.31 - 7.42 LAB HEMATOLOGY METHOD 10/17/2024 11:54 AM EDT [facility] pCO2, Arterial 41 32 - 45 mmHg LAB HEMATOLOGY METHOD 10/17/2024 11:54 AM EDT [facility] pO2, Arterial 202 >80 mmHg LAB HEMATOLOGY METHOD 10/17/2024 11:54 AM EDT [facility] SO2, Measured, Arterial 100(H) 94 - 98 % LAB HEMATOLOGY METHOD 10/17/2024 11:54 AM EDT [facility] Base Excess, Arterial -3.2(L) -2.0 - 3.0 mmol/L LAB HEMATOLOGY METHOD 10/17/2024 11:54 AM EDT [facility] Bicarbonate, Calculated, Arterial 22 22 - 26 mmol/L LAB HEMATOLOGY METHOD 10/17/2024 11:54 AM EDT [facility] Hematocrit, Whole Blood 28.6(L) 40.0 - 51.0 % LAB HEMATOLOGY METHOD 10/17/2024 11:54 AM EDT [facility] Sodium, Whole Blood 137 136 - 145 mmol/L LAB HEMATOLOGY METHOD 10/17/2024 11:54 AM EDT [facility] Potassium, Whole Blood 4.5 3.6 - 4.9 mmol/L LAB HEMATOLOGY METHOD 10/17/2024 11:54 AM EDT [facility] Chloride, Whole Blood 112(H) 97 - 107 mmol/L LAB HEMATOLOGY METHOD 10/17/2024 11:54 AM EDT [facility] Glucose, Whole Blood 201(H) 74 - 99 mg/dL LAB HEMATOLOGY METHOD 10/17/2024 11:54 AM EDT [facility] Ionized Calcium, Whole Blood 4.8 4.6 - 5.1 mg/dL LAB HEMATOLOGY METHOD 10/17/2024 11:54 AM EDT [facility] Lactate, Arterial, Whole Blood 2.3(H) 0.5 - 1.6 mmol/L LAB HEMATOLOGY METHOD 10/17/2024 11:54 AM EDT [facility] Blood Arterial blood specimen / Unknown Arterial Puncture / Unknown 10/17/2024 11:48 AM EDT 10/17/2024 11:53 AM EDT us Jenna Lopez CRNA LAB BLOOD ORDERABLES Final Re sult [facility] [address] [place] [address] * POCT ACT (10/17/2024 11:41 AM EDT) ACT+ (HIGH RANGE) 175 68 - 600 Seconds 10/29/2024 7:28 AM EDT [facility] Agricultural Plow Operator ID Oneyda Alicea 10/29/2024 7:28 AM EDT [facility] ACT Device ID [id number] 10/29/2024 7:28 AM EDT [facility] Comment 10/29/2024 7:28 AM EDT [facility] Comment: ACT performed by [...] UNSOLICITED RESULTS Final Result Performing Organization Address [facility] Co de Phone Number [facility] [address] LAB [address] [place] [address] * POCT ACT (10/17/2024 11:11 AM EDT) [facility] Signature ACT+ (HIGH RANGE) 252 68 - 600 Seconds 10/29/2024 7:28 AM EDT [facility] Agricultural Plow Operator ID Donna Mcmillan 10/29/2024 7:28 AM EDT [facility] ACT Device ID [id number] 10/29/2024 7:28 AM EDT [facility] Comment 10/29/2024 7:28 AM EDT [facility] Comment: ACT performed by [...] RESULTS Final Result Performing Organization Address City/[facility] Co de Phone Number [facility] [address] LAB [address] [place] [address] * (ABNORMAL) Blood gas, arterial (10/17/2024 10:46 AM EDT) pH, Arterial 7.35 7.31 - 7.42 LAB HEMATOLOGY METHOD 10/17/2024 10:56 AM EDT [facility] pCO2, Arterial 42 32 - 45 mmHg LAB HEMATOLOGY METHOD 10/17/2024 10:56 AM EDT [facility] pO2, Arterial 161 >80 mmHg LAB HEMATOLOGY METHOD 10/17/2024 10:56 AM EDT [facility] SO2, Measured, Arterial 100(H) 94 - 98 % LAB HEMATOLOGY METHOD 10/17/2024 10:56 AM EDT [facility] Base Excess, Arterial -2.2(L) -2.0 - 3.0 mmol/L LAB HEMATOLOGY METHOD 10/17/2024 10:56 AM EDT [facility] Bicarbonate, Calculated, Arterial 23 22 - 26 mmol/L LAB HEMATOLOGY METHOD 10/17/2024 10:56 AM EDT [facility] Hematocrit, Whole Blood 29.9(L) 40.0 - 51.0 % LAB HEMATOLOGY METHOD 10/17/2024 10:56 AM EDT [facility] Sodium, Whole Blood 138 136 - 145 mmol/L LAB HEMATOLOGY METHOD 10/17/2024 10:56 AM EDT [facility] Potassium, Whole Blood 4.0 3.6 - 4.9 mmol/L LAB HEMATOLOGY METHOD 10/17/2024 10:56 AM EDT [facility] Chloride, Whole Blood 110(H) 97 - 107 mmol/L LAB HEMATOLOGY METHOD 10/17/2024 10:56 AM EDT [facility] Glucose, Whole Blood 174(H) 74 - 99 mg/dL LAB HEMATOLOGY METHOD 10/17/2024 10:56 AM EDT [facility] Ionized Calcium, Whole Blood 5.1 4.6 - 5.1 mg/dL LAB HEMATOLOGY METHOD 10/17/2024 10:56 AM EDT [facility] Lactate, Arterial, Whole Blood 1.4 0.5 - 1.6 mmol/L LAB HEMATOLOGY METHOD 10/17/2024 10:56 AM EDT [facility] Blood Arterial blood specimen / Unknown Arterial Puncture / Unknown 10/17/2024 10:46 AM EDT 10/17/2024 10:54 AM EDT us Jenna Munira Lopez [facility] BLOOD ORDERABLES Final Re sult Performing Organization Address [facility] Co de Phone Number [facility] [address] [place] [address] * POCT ACT (10/17/2024 10:37 AM EDT) ACT+ (HIGH RANGE) 206 68 - 600 Seconds 10/29/2024 7:28 AM EDT HEALTHCARE LAB Agricultural Plow Operator ID Donna Mcmillan 10/29/2024 7:28 AM EDT [facility] ACT Device ID [id number] 10/29/2024 7:28 AM EDT [facility] Comment 10/29/2024 7:28 AM EDT [facility] Comment: ACT performed by [...] UNSOLICITED RESULTS Final Result Performing Organization Address [facility] de Phone Number [facility] [address] [place] [address] * Surgical Pathology Exam (10/17/2024 10:27 AM EDT) Case Report Surgical Pathology Case: [id number] Authorizing Provider: Terrell Gautam MD Collected: 10/17/2024 1027 Ordering Location: [facility] A OPERATING ROOM Received: 10/17/2024 1325 Pathologist: Haydee Osborne MD Specimen: Other (specify site), left common femoral plaque 10/21/2024 10:16 AM EDT [facility] Final Diagnosis A. LEFT COMMON FEMORAL PLAQUE, EXCISION: - CALCIFIED PLAQUE 10/21/2024 10:16 AM EDT [facility] at 1016 EDT Clinical Information Critical limb ischemia of left lower extremity [I70.222] 10/21/2024 10:16 AM EDT [facility] Gross Description A. LEFT COMMON FEMORAL PLAQUE Received in formalin labeled l eft common femoral plaque , is one aggregate of red-gabriel hard portions of plaque measuring 3.7 x 2.5 x 0.9 cm. The specimen is serially sectioned and small business representative sections are submitted in cassette A1. Cold Time: <1m Kenia Aceves 10/21/2024 10:16 AM EDT [facility] Note: A resident was involved in the service. I attest I examined the relevant preparations for the specimens and confirmed the diagnosis or interpretation. 10/21/2024 10:16 AM EDT [facility] Tissue Topography unknown / Unknown 10/17/2024 10:27 AM EDT 10/17/2024 1:25 PM EDT Comment:Pre-op diagnosis: Critical limb ischemia of left lower extremity [I70.222] us Terrell Gautam MD LAB PATHOLOGY ORDERABLES Gwen grimaldo Result [facility] [address] [place] [address] * POCT ACT (10/17/2024 10:03 AM EDT) ACT+ (HIGH RANGE) 244 68 - 600 Seconds 10/29/2024 7:28 AM EDT [facility] Agricultural Plow Operator ID Donna Mcmillan 10/29/2024 7:28 AM EDT HEALTHCARE LAB ACT Device ID [id number] 10/29/2024 7:28 AM EDT HEALTH[facility]ARE LAB Comment 10/29/2024 7:28 AM EDT [facility] Comment: ACT performed by [...] ST DOCKED DEVICE UNSOLICITED RESULTS Final Result [facility] [address] LAB [address] [place] [address] * (ABNORMAL) Blood gas, arterial (10/17/2024 9:45 AM EDT) pH, Arterial 7.37 7.31 - 7.42 LAB HEMATOLOGY METHOD 10/17/2024 9:55 AM EDT [facility] pCO2, Arterial 43 32 - 45 mmHg LAB HEMATOLOGY METHOD 10/17/2024 9:55 AM EDT [facility] pO2, Arterial 177 >80 mmHg LAB HEMATOLOGY METHOD 10/17/2024 9:55 AM EDT [facility] SO2, Measured, Arterial 100(H) 94 - 98 % LAB HEMATOLOGY METHOD 10/17/2024 9:55 AM EDT [facility] Base Excess, Arterial -0.5 -2.0 - 3.0 mmol/L LAB HEMATOLOGY METHOD 10/17/2024 9:55 AM EDT [facility] Bicarbonate, Calculated, Arterial 25 22 - 26 mmol/L LAB HEMATOLOGY METHOD 10/17/2024 9:55 AM EDT [facility] Hematocrit, Whole Blood 30.0(L) 40.0 - 51.0 % LAB HEMATOLOGY METHOD 10/17/2024 9:55 AM EDT [facility] Sodium, Whole Blood 137 136 - 145 mmol/L LAB HEMATOLOGY METHOD 10/17/2024 9:55 AM EDT [facility] Potassium, Whole Blood 4.3 3.6 - 4.9 mmol/L LAB HEMATOLOGY METHOD 10/17/2024 9:55 AM EDT [facility] Chloride, Whole Blood 108(H) 97 - 107 mmol/L LAB HEMATOLOGY METHOD 10/17/2024 9:55 AM EDT [facility] Glucose, Whole Blood 191(H) 74 - 99 mg/dL LAB HEMATOLOGY METHOD 10/17/2024 9:55 AM EDT [facility] Ionized Calcium, Whole Blood 5.0 4.6 - 5.1 mg/dL LAB HEMATOLOGY METHOD 10/17/2024 9:55 AM EDT [facility] Lactate, Arterial, Whole Blood 1.3 0.5 - 1.6 mmol/L LAB HEMATOLOGY METHOD 10/17/2024 9:55 AM EDT [facility] Blood Arterial blood specimen / Unknown Arterial Line / Unknown 10/17/2024 9:45 AM EDT 10/17/2024 9:52 AM EDT us Jenna Lopez CRNA LAB BLOOD ORDERABLES Final Re sult [facility] [address] [place] [address] * (ABNORMAL) Blood gas, arterial (10/17/2024 8:47 AM EDT) pH, Arterial 7.37 7.31 - 7.42 LAB HEMATOLOGY METHOD 10/17/2024 8:59 AM EDT [facility] pCO2, Arterial 43 32 - 45 mmHg LAB HEMATOLOGY METHOD 10/17/2024 8:59 AM EDT [facility] pO2, Arterial 205 >80 mmHg LAB HEMATOLOGY METHOD 10/17/2024 8:59 AM EDT [facility] SO2, Measured, Arterial 100(H) 94 - 98 % LAB HEMATOLOGY METHOD 10/17/2024 8:59 AM EDT [facility] Base Excess, Arterial -0.3 -2.0 - 3.0 mmol/L LAB HEMATOLOGY METHOD 10/17/2024 8:59 AM EDT [facility] Bicarbonate, Calculated, Arterial 25 22 - 26 mmol/L LAB HEMATOLOGY METHOD 10/17/2024 8:59 AM EDT [facility] Hematocrit, Whole Blood 31.3(L) 40.0 - 51.0 % LAB HEMATOLOGY METHOD 10/17/2024 8:59 AM EDT [facility] Sodium, Whole Blood 138 136 - 145 mmol/L LAB HEMATOLOGY METHOD 10/17/2024 8:59 AM EDT [facility] Potassium, Whole Blood 4.0 3.6 - 4.9 mmol/L LAB HEMATOLOGY METHOD 10/17/2024 8:59 AM EDT [facility] Chloride, Whole Blood 108(H) 97 - 107 mmol/L LAB HEMATOLOGY METHOD 10/17/2024 8:59 AM EDT [facility] Glucose, Whole Blood 162(H) 74 - 99 mg/dL LAB HEMATOLOGY METHOD 10/17/2024 8:59 AM EDT [facility] Ionized Calcium, Whole Blood 5.2(H) 4.6 - 5.1 mg/dL LAB HEMATOLOGY METHOD 10/17/2024 8:59 AM EDT [facility] Lactate, Arterial, Whole Blood 1.7(H) 0.5 - 1.6 mmol/L LAB HEMATOLOGY METHOD 10/17/2024 8:59 AM EDT [facility] Blood Arterial blood specimen / Unknown Arterial Puncture / Unknown 10/17/2024 8:47 AM EDT 10/17/2024 8:58 AM EDT us Jenna Lopez CRNA LAB BLOOD ORDERABLES Final Re sult [facility] [address] [place] [address] * POCT ACT (10/17/2024 8:46 AM EDT) ACT+ (HIGH RANGE) 101 68 - 600 Seconds 10/29/2024 7:28 AM EDT [facility] Agricultural Plow Operator ID Donna Mcmillan 10/29/2024 7:28 AM EDT [facility] ACT Device ID [id number] 10/29/2024 7:28 AM EDT [facility] Comment 10/29/2024 7:28 AM EDT [facility] Comment: ACT performed by [...] RESULTS Final Result [facility] [address] LAB [address] [place] [address] * Type and Screen (10/17/2024 7:19 AM [...] ORDERAB LES Final Result Performing Organization Address [facility] Co de Phone Number BLOOD BANK [address] [place] [address] * (ABNORMAL) POCT glucose meter (10/17/2024 6:44 AM EDT) [facility] POCT Glucose 178(H) 74 - 99 [...] 10/17/2024 6:49 AM EDT [facility] Agricultural Plow Operator ID Hunter Burroughs 10/18/19 6:49 AM EDT [facility] Device ID [id number] 10/17/2024 6:49 AM EDT [facility] Specimen Type POC Capillary 10/17/2024 6:49 AM EDT [facility] Blood Capillary blood specimen / Unknown 10/17/2024 6:44 AM EDT 10/17/2024 6:49 AM EDT us Terrell Gautam MD LAB POINT OF CARE TE ST DOCKED DEVICE UNSOLICITED RESULTS Final Result [facility] [address] [place] [id number] documented in this encounter Visit Diagnoses Diagnosis [...] II-Outpatient)/On Unit(Inpatient) 2012 (Given - Provider: Jourdan Grimse II, CHRISTIAN) 2001 (Given - Provider: Kassie [...] documented as of this encounter Care Teams Furnace Charging Machine Operator Relationship Specialty Start Date End Date Asad Victor MD [address] [place] [id number] PCP - General 10/07/22 documented as of this encounter
--- OUTSIDE RECORDS SUMMARY | 2024-11-05 21:45 | XMS_ITS | Encounter Summary ---
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 Mycological 4 Weeks No Fungal Growth <1 Week ISIDRO No fungal elements seen Blood Culture (Aerobic/Anaerobet Set) [[id number]] Collected: 11/06/24106 Order Status: Completed Specimen: Blood from AC, Left Updated: 11/08/24 0302 Culture No growth at day 2 Blood Culture (Aerobic/Anaerobet Set) [[id number]] Collected: 11/06/24106 Order Status: Completed Specimen: Blood from Hand, Right Updated: 11/08/24 0302 Culture No growth at day 2 Tissue Culture and Gram Stain [[id number]] (Abnormal) Collected: 11/06/241133 Order Status: Completed Specimen: [...] in pairs Routine Culture and Gram Stain [[id number]] (Abnormal) Collected: 11/06/241128 Order Status: Completed Specimen: Swab from Other (specify site) Updated: 11/07/24 1426 Culture Moderate Growth Enterobacter cloacae complex Comment: This isolate has been identified using the FDA Approved [employer] System The organism value for this result has been updated. These results have been appended to the previously preliminary verified report. Gram Stain Result No polymorphonuclear leukocytes seen No organisms seen AFB Culture, Non Respiratory Source and Acid Fast Stain [[id number]] Collected: 11/06/24 1134 Order Status: Completed Specimen: Tissue from Other (specify site) Updated: 11/07/24 1404 Acid Fast Stain No acid fast bacilli seen Routine Culture and Gram Stain [[id number]] Collected: 11/06/241127 Order Status: Completed Specimen: Swab from Other (specify site) Updated: 11/07/24 0855 Culture No growth at day 1 Gram Stain Result No organisms seen No polymorphonuclear leukocytes seen Anaerobic Culture [[id number]] Collected: 11/06/241127 Order Status: Sent Specimen: Swab from Other (specify site) Updated: 11/06/24 1220 Abscess Culture and Gram Stain [[id number]] Collected: 11/06/241127 Order Status: Canceled Specimen: Swab from Other (specify site) Updated: 11/06/24 1220 Anaerobic Culture [[id number]] Collected: 11/06/241128 Order Status: Sent Specimen: Swab from Other (specify site) Updated: 11/06/24 1219 Abscess Culture and Gram Stain [[id number]] Collected: 11/06/241128 Order Status: Canceled Specimen: Swab from Other (specify site) Updated: 11/06/24 121 Anaerobic Culture [[id number]] Collected: 11/06/241133 Order Status: Sent Specimen: Tissue [...] 11/06, pt went to the [facility] vascular surgery for left groin exploration [...] the time spent on the encounter was pord-kn-wrer providing direct patient care, counseling for the [...] tablet 10 mg 10 mg Oral Once eRid Daniels MD [START ON 11/09/2024] lisinopril tablet [...] Plan: OPAT at a medical/nursing facility (e.g, [facility]AC,[facility], Swing Bed, Nursing facility) OPAT [...] IV Access: pending Patient Specific Outpatient Circumstances: [address] [place] [address] Contact information Bev Borja [phone] (home) Extended Emergency Contact Information Primary Emergency Contact: Patti Hill Relation: Sister Dish Carrier needed? No Outpatient services (including home infusion, [...] via secure chat or staff messaging in [employer]. OPAT Modified program for IV antimicrobial therapy [...] APODACA, RN 11/07/2024 * Care Plan - Brigtite Castellon RN - 11/07/2024 3:30 PM EDT [...] Case Management Adult Initial Progress Note Bev Broja 64 y.o. male CSN: [id number] Admission: 11/05/2024 9:45 PM Primary Problem: Wound infection Talent Development Consultant reviewed chart and spoke with patient to complete this Initial Case Management Assessment. PCP: Asad Victor MD (Inactive) Dr. Palomo in [facility] Emergency Contact: Extended Emergency Contact Information Primary Emergency Contact: Patti Hill Relation: Sister Dish Carrier needed? No Insurance: Primary Visit Coverage Payer Plan Sponsor Code Group Number Group Name [facility] MEDICARE UHC MEDICARE REPLACEMENT [id number] Primary Visit Coverage Subscriber Subscriber ID Subscriber Name Subscriber SSN Subscriber Address [id number] BEV BORJA [id number] [place] [address] Secondary Visit Coverage Payer Plan Sponsor Code Group Number Group Name AETNA [facility] MEDICAID AETNA [facility] Secondary Visit Coverage Subscriber Subscriber ID Subscriber Name Subscriber SSN Subscriber Address [id number] BEV BORJA [id number] [place] [address] Patient information: Primary Caregiver: Self Support System: Immediate family Daily Living Activities: Functional Status: Independent Living Arrangements: Alone Type of Residence: Private residence, Single Level [address] [place] [address] Current DME: Equipment Currently Used at Home: walker, rollator Income Information: Income Source: Disabled Income/Expense Information: Income meets expenses Current Resources Utilized: [employer] [place] Housing Circumstances-Z Codes: Housing Circumstances (select all [...] Dialysis Services: None Living Will/Advance Directive/Power of Cvt Rn /Guardian: Have you reviewed your Advance Directive and is it valid for this stay?: No Advance Directive: Not applicable Information Provided on Healthcare Directives: No Pre-existing DNR/DNI Order: No Patient Requests Assistance: No Additional Comments: Patient is not medically ready for discharge. Patient uses [facility] for transportation and will need assistance with discharge transport. SW will continue to follow. Mariia Macedo [employer] * Progress Notes - Melecio Echevarria DO [...] 09/21/24, CLI s/p left femoral endarterectomy with EIA/REFINERY PROCESS ENGINEER stenting 10/17/24, who presented to [facility] 11/05/2024 with wound infection. 11/06/24: L [...] completed 10/19 Pseudoaneurysm of left femoral artery ([facility]) COPD (chronic obstructive pulmonary disease) ([facility]) Overview Signed 10/18/2021 7:30 PM by Gallo Gallardo MD Not on home inhalers A-fib ([facility]) Overview Addendum 10/19/2021 10:39 AM by Giovanna Junior APRN Hold anticoagulation Metoprolol restarted BPH (benign prostatic hyperplasia) Overview Addendum 10/19/2021 10:41 AM by Giovanna Junior APRN Flomax restarted Subarachnoid hemorrhage ([facility]) Overview Addendum 10/20/2021 8:23 AM by Giovanna Junior APRN Left frontal, right occipital NSGY consulted - Repeat CTH showing slight worsening of tSAH - no need for further imaging, will continue to follow clinically 10/20: spoke with NSGY via phone and stated to hold ASA and Xarelto for 2 weeks Closed compression fracture of L3 lumbar vertebra, initial encounter ([facility]) Overview Signed 10/18/2021 7:35 PM by Gallo [...] 09/21/24, CLI s/p left femoral endarterectomy with EIA/REFINERY PROCESS ENGINEER stenting 10/17/24, who presented to [facility] 11/05/2024 with wound infection. POD # [...] of breath, nausea and vomiting. Pain Control: [facility]. Currently well controlled. Objective: Vitals: Vitals: 11/06/24 [...] Diet: Regular Anticoagulation/DVT ppx: Held Pain management: [facility] Level of care: Continue Current Level of Care I have answered and addressed all issues and concerns from the patient and nursing staff. I have notified senior resident/attending forestry conservation worker with any issues or concerns. Melecio Echevarria [...] Agree with above assessment and evaluation from resident/WIRE BENDER. * Consults - Oscar Appiah MD - [...] the findings. Cardiac Device Check - PRE-OR [facility]: Pre-operative CIED Report Assessment and Sara-Procedural Reommendations: Name: Bev Borja Date: 10/17/2024 : 1960 Age: 64 y.o. 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 Lead integrity [...] Procedure Component Value Units Date/Time Anaerobic Culture [[id number]] Collected: 11/06/241127 Order Status: Sent Specimen: Swab from Other (specify site) Updated: 11/06/241219 Fungal Culture, Routine [[id number]] Collected: 11/06/241127 Order Status: Sent Specimen: Swab from Other (specify site) Updated: 11/06/24 122 Routine Culture and Gram Stain [[id number]] Collected: 11/06/241127 Order Status: Sent Specimen: Swab from Other (specify site) Updated: 11/06/241219 Abscess Culture and Gram Stain [[id number]] Collected: 11/06/241127 Order Status: Canceled Specimen: Swab from Other (specify site) Updated: 11/06/241219 Anaerobic Culture [[id number]] Collected: 11/06/241128 Order Status: Sent Specimen: Swab from Other (specify site) Updated: 11/06/24 121 Fungal Culture, Routine [[id number]] Collected: 11/06/241128 Order Status: Sent Specimen: Swab from Other (specify site) Updated: 11/06/241218 Routine Culture and Gram Stain [[id number]] Collected: 11/06/241128 Order Status: Sent Specimen: Swab from Other (specify site) Updated: 11/06/241218 Abscess Culture and Gram Stain [[id number]] Collected: 11/06/241128 Order Status: Canceled Specimen: Swab from Other (specify site) Updated: 11/06/241218 Anaerobic Culture [[id number]] Collected: 11/06/241133 Order Status: Sent Specimen: Tissue from Other (specify site) Updated: 11/06/241217 Tissue Culture and Gram Stain [[id number]] Collected: 11/06/241133 Order Status: Sent Specimen: Tissue from Other (specify site) Updated: 11/06/241217 AFB Culture, Non Respiratory Source and Acid Fast Stain [[id number]] Collected: 11/06/241133 Order Status: Sent Specimen: Tissue from Other (specify site) Updated: 11/06/241217 Fungal Culture, Tissue and ISIDRO [[id number]] Collected: 11/06/24 1134 Order Status: Sent Specimen: Tissue from Other (specify site) Updated: 11/06/24 1218 Blood Culture (Aerobic/Anaerobet Set) [[id number]] Collected: 11/06/24106 Order Status: Completed Specimen: Blood from AC, Left Updated: 11/06/24402 Culture Culture in lab Blood Culture (Aerobic/Anaerobet Set) [[id number]] Collected: 11/06/24106 Order Status: Completed Specimen: Blood [...] 11/06, pt went to the [facility] vascular surgery for left groin exploration [...] the time spent on the encounter was [id number]-[id number] providing direct patient care, counseling for the patient/caregiver, and care coordination. [1] Past Medical History: Diagnosis Date Arthritis Old myocardial infarction History of myocardial infarction [2] Past Surgical History: Procedure Laterality Date ANKLE SURGERY Right CARDIAC PACEMAKER PLACEMENT CAROTID ENDARTERECTOMY N/A 2017 Endarterectomy Carotid Artery from [facility] CORONARY ANGIOPLASTY Left Coronary Angiography With Concomitant Left Heart Catheterization from [facility] CORONARY ARTERY BYPASS GRAFT N/A 2018 3V ELBOW SURGERY Right ENDARTERECTOMY Left 10/17/2024 common/SFA/Profunda thromboendarterectomy, EIA/REFINERY PROCESS ENGINEER stent HERNIA REPAIR KNEE ARTHROSCOPY Left VASCULAR SURGERY Left 09/21/2024 REFINERY PROCESS ENGINEER pseudoaneurym injection [3] Family History Problem Relation [...] mg 4 mg Intravenous q6h PRN Anthony eRyes MD Or [Transfer Hold] ondansetron (Zofran) 4 [...] Note Bev Borja 64 y.o. male CSN: [id number] Admission: 11/05/2024 9:45 PM Primary Problem: Wound infection Patient in OR today. SW will continue to follow. Mariia Macedo [employer] [employer] * Op Note - Jerry Holcomb MD - 11/06/2024 11:23 AM EDT Operative Note Date: 11/06/24 Location: [place] [facility] Name: Bev Borja, : 1960, Diagnoses: Pre-op Diagnosis Surgical wound infection Post-op Diagnosis Surgical wound infection Procedure(s): Excisional debridement left groin (skin, subcutaneous tissue. Final measurements 10 x 7 x 6.5 cm) Excisional debridement left thigh (skin, subcutaneous tissue. Final measurements 8 x 2 x 3 cm) Attending Surgeon(s): * Nathaly Nowak - Primary Primary Health Care Nurse(s): * Luna Beckett MD - Resident - [...] T2DM, HLD, HTN, RLS who presented to [facility] with wound infection. He has had [...] restarted once verified. Plan: - Admit to [facility] - NPO, mIVF - Vanc/Zosyn, Blood [...] ENDARTERECTOMY N/A 2017 Endarterectomy Carotid Artery from [facility] CORONARY ANGIOPLASTY Left Coronary Angiography With Concomitant Left Heart Catheterization from [facility] CORONARY ARTERY BYPASS GRAFT N/A 2018 3V ELBOW SURGERY Right ENDARTERECTOMY Left 10/17/2024 common/SFA/Profunda thromboendarterectomy, EIA/REFINERY PROCESS ENGINEER stent HERNIA REPAIR KNEE ARTHROSCOPY Left VASCULAR SURGERY Left 09/21/2024 REFINERY PROCESS ENGINEER pseudoaneurym injection [4] Family History Problem Relation [...] grams of glucose Sublingual q15 min PRN Anthnoy eRyes MD Or dextrose 10 % (D10W) bolus [...] baseline. Psychiatric: Mood and Affect: Mood normal. Mcdonald Coma Scale Score: 15 ED Course & [...] to inpatient Once Acknowledged ANTHONY REYES 11/05/24 1256 Consult to Vascular Surgery - Surg Red Once Specialty: Vascular Surgery Provider: (Not yet assigned) Completed CIRO ALEXANDER ED Course as of 11/06/24612Nov 05, 2024 2311 On initial evaluation, patient is hemodynamically stable. Patient has history of traumatic left lower extremity REFINERY PROCESS ENGINEER pseudoaneurysm s/p repair on 10/17 with Vascular [...] None Disposition Admit Admitting/Attending Physician: NATHALY NOWAK [[id number]] Provider Care Team: [facility] 2 [168] Are they the primary team?: Yes [1] - [1] Past Medical History: Diagnosis Date Arthritis Old myocardial infarction History of myocardial infarction [2] Past Surgical History: Procedure Laterality Date ANKLE SURGERY Right CARDIAC PACEMAKER PLACEMENT CAROTID ENDARTERECTOMY N/A 2017 Endarterectomy Carotid Artery from [facility] CORONARY ANGIOPLASTY Left Coronary Angiography With Concomitant Left Heart Catheterization from [facility] CORONARY ARTERY BYPASS GRAFT N/A 2018 3V ELBOW SURGERY Right ENDARTERECTOMY Left 10/17/2024 common/SFA/Profunda thromboendarterectomy, EIA/REFINERY PROCESS ENGINEER stent HERNIA REPAIR KNEE ARTHROSCOPY Left VASCULAR SURGERY Left 09/21/2024 REFINERY PROCESS ENGINEER pseudoaneurym injection [3] Family History Problem Relation [...] Description 11/26/2024 2:00 PM EDT Hospital Encounter [facility] [address] [place] [address] 11/26/2024 2:30 PM EDT Hospital Encounter [facility] [address] [place] [address] 11/26/2024 3:20 PM EDT Office Visit [facility] [address] [place] [address] Elisabet Schuster, GLENDA [address] [facility] [address] [place] [address] 11/29/2024 2:30 PM EDT Office Visit [facility] [address] [place] [address] Oscar Appiah MD [address] [facility] [address] [place] [address] Pending Results Name Type Priority [...] Discharge Ambulatory referral to NON [facility] Outpatient Referral Routine Pseudoaneurysm of [...] glucose meter (11/14/2024 11:56 AM EDT) [facility] POCT [...] Comment 11/14/2024 11:57 AM EDT [facility] Respiratory Practitioner ID Estefani Sheth 11/14/2024 11:57 AM EDT HEALTHCARE LAB Device ID [id number] 11/14/2024 11:57 AM EDT HEALTH[facility]ARE [facility] Specimen Type POC Capillary 11/14/2024 11:57 AM EDT [facility]ARE [facility] Blood Capillary blood specimen / Unknown 11/14/2024 11:56 AM EDT 11/14/2024 11:57 AM EDT Nathaly Nowak MD LAB POINT OF CARE TE ST DOCKED DEVICE UNSOLICITED RESULTS Final Result Performing Organization Address City/State/[facility] Co de Phone Number HEALTHCARE LAB [address] [place] [address] * (ABNORMAL) POCT glucose meter (11/14/2024 8:05 AM EDT) [facility] POCT Glucose 150(H) 74 - 99 [...] 11/14/2024 8:06 AM EDT [facility] Respiratory Practitioner ID Estefani Sheth 11/14/2024 8:06 AM EDT HEALTHCARE LAB Device ID [id number] 11/14/2024 8:06 AM EDT HEALTHCARE LAB Specimen Type POC Capillary 11/14/2024 8:06 AM EDT [facility]ARE [facility] Blood Capillary blood specimen / Unknown 11/14/2024 8:05 AM EDT 11/14/2024 8:06 AM EDT Nathaly Nowak MD LAB POINT OF CARE TE ST DOCKED DEVICE UNSOLICITED RESULTS Final Result Performing Organization Address City/[facility] de Phone Number [facility] [address] [place] [address] * (ABNORMAL) POCT glucose meter (11/14/2024 3:53 [...] for testing. Comment 11/14/2024 3:55 AM EDT [facility] Respiratory Practitioner ID Nelda Gerber 11/15/19 3:55 AM EDT HEALTHCARE LAB Device ID [id number] 11/14/2024 3:55 AM EDT [facility] Specimen Type POC Capillary 11/14/2024 3:55 AM EDT [facility] Blood Capillary blood specimen / Unknown 11/14/2024 3:53 AM EDT 11/14/2024 3:55 AM EDT Nathaly Nowak MD LAB POINT OF CARE TE ST DOCKED DEVICE UNSOLICITED RESULTS Final Result Performing Organization Address City/[facility] Co de Phone Number [facility] [address] [place] [address] * (ABNORMAL) POCT glucose meter (11/13/2024 8:55 [...] Comment 11/13/2024 9:01 PM EDT HEALTHCARE LAB Respiratory Practitioner ID Nelda Gerber 11/14/19 9:01 PM EDT HEALTHCARE LAB Device ID [id number] 11/13/2024 9:01 PM EDT HEALTHCARE LAB Specimen Type POC Capillary 11/13/2024 9:01 PM EDT [facility] Blood Capillary blood specimen / Unknown 11/13/2024 8:55 PM EDT 11/13/2024 9:01 PM EDT Nathaly Nowak MD LAB POINT OF CARE TE ST DOCKED DEVICE UNSOLICITED RESULTS Final Result Performing Organization Address City/State/[facility] Co de Phone Number HEALTHCARE [facility] [address] [place] [address] * (ABNORMAL) POCT glucose meter (11/13/2024 5:16 PM EDT) [facility] POCT Glucose 149(H) 74 - 99 [...] Comment 11/13/2024 5:17 PM EDT [facility]ALTH[facility]ARE [facility] Respiratory Practitioner ID Estefani Sheth 11/13/2024 5:17 PM EDT HEALTHCARE LAB Device ID [id number] 11/13/2024 5:17 PM EDT [facility]ALTH[facility]ARE [facility] Specimen Type POC Capillary 11/13/2024 5:17 PM EDT [facility] Blood Capillary blood specimen / Unknown 11/13/2024 5:16 PM EDT 11/13/2024 5:17 PM EDT Nathaly Nowak MD LAB POINT OF CARE TE ST DOCKED DEVICE UNSOLICITED RESULTS Final Result [facility] [address] [place] [address] * DE NEGATIVE PRESSURE WOUND THERAPY DME [...] Comment 11/13/2024 12:00 PM EDT [facility] Respiratory Practitioner ID Estefani Sheth 11/13/2024 12:00 PM EDT HEALTH[facility]ARE LAB Device ID [id number] 11/13/2024 12:00 PM EDT [facility]ALTH[facility]ARE LAB Specimen Type POC Capillary 11/13/2024 12:00 PM EDT [facility] Blood Capillary blood specimen / Unknown 11/13/2024 11:58 AM EDT 11/13/2024 12:00 PM EDT Nathaly Nowak MD LAB POINT OF CARE TE ST DOCKED DEVICE UNSOLICITED RESULTS Final Result Performing Organization Address [facility] Co de Phone Number HEALTHCARE LAB [address] [place] [address] * (ABNORMAL) POCT glucose meter (11/13/2024 8:23 AM EDT) POCT Glucose 195(H) 74 - 99 mg/dL 11/13/2024 8:24 AM EDT [facility] Comment:Accuracy of a glucos e result [...] for testing. Comment 11/13/2024 8:24 AM EDT [facility] Respiratory Practitioner ID Estefani Sheth 11/13/2024 8:24 AM EDT [facility] Device ID [id number] 11/13/2024 8:24 AM EDT [facility] Specimen Type POC Capillary 11/13/2024 8:24 AM EDT [facility] Blood Capillary blood specimen / Unknown 11/13/2024 8:23 AM EDT 11/13/2024 8:24 AM EDT Result [facility] Nathaly Nowak MD LAB POINT OF CARE TE ST DOCKED DEVICE UNSOLICITED RESULTS Final Result Performing Organization Address City/[facility] Co de Phone Number [facility] [address] [place] [address] * (ABNORMAL) Phosphorus, Plasma (11/13/2024 6:37 AM EDT) Phosphorus, Plasma 1.7(L) 2.5 - 4.5 mg/dL 11/13/2024 7:16 AM EDT [facility] Blood Venous blood specimen / Unknown Venipuncture / Unknown 11/13/2024 6:37 AM EDT 11/13/2024 6:44 AM EDT Result [facility] Nathaly Nowak MD LAB BLOOD ORDERABLES Final Resu lt [facility] [address] [place] [address] * Magnesium, Plasma (11/13/2024 6:37 AM EDT) Pathologist [facility] Magnesium, Plasma 2.0 1.9 - 2.4 mg/dL 11/13/2024 7:16 AM EDT [facility] Blood Venous blood specimen / Unknown Venipuncture / Unknown 11/13/2024 6:37 AM EDT 11/13/2024 6:44 AM EDT us Nathaly Nowak MD LAB BLOOD ORDERABLES Final Resu lt Performing Organization Address City/[facility]/ZIP Co de Phone Number [facility] [address] [place] [address] * (ABNORMAL) CBC W/O Differential (11/13/2024 6:37 AM EDT) Pathologist [facility] WBC Count 11.72(H) 3.70 - 10.30 10*3/uL LAB HEMATOLOGY METHOD 11/13/2024 6:51 AM EDT [facility] RBC Count 2.88(L) 4.60 - 6.10 10*6/uL LAB HEMATOLOGY METHOD 11/13/2024 6:51 AM EDT [facility] HGB 8.5(L) 13.7 - 17.5 g/dL LAB HEMATOLOGY METHOD 11/13/2024 6:51 AM EDT [facility] HCT 26.4(L) 40.0 - 51.0 % LAB HEMATOLOGY METHOD 11/13/2024 6:51 AM EDT [facility] Platelet Count 398(H) 155 - 369 10*3/uL LAB HEMATOLOGY METHOD 11/13/2024 6:51 AM EDT [facility] MCV 92 79 - 98 fL LAB HEMATOLOGY METHOD 11/13/2024 6:51 AM EDT [facility] MCH 29.5 26.0 - 32.0 pg LAB HEMATOLOGY METHOD 11/13/2024 6:51 AM EDT [facility] MCHC 32.2 30.7 - 35.5 g/dL LAB HEMATOLOGY METHOD 11/13/2024 6:51 AM EDT [facility] RDW 13.6 11.5 - 14.5 % LAB HEMATOLOGY METHOD 11/13/2024 6:51 AM EDT [facility] MPV 8.9 8.8 - 12.5 fL LAB HEMATOLOGY METHOD 11/13/2024 6:51 AM EDT [facility] nRBC 0.0 <=0.0 per 100 WBCs LAB HEMATOLOGY METHOD 11/13/2024 6:51 AM EDT [facility] Blood Venous blood specimen / Unknown Venipuncture / Unknown 11/13/2024 6:37 AM EDT 11/13/2024 6:44 AM EDT us Nathaly Nowak MD LAB BLOOD ORDERABLES Final Resu lt [facility] [address] [place] [address] * (ABNORMAL) Basic Metabolic Panel, Plasma (11/13/2024 6:37 AM EDT) Glucose, Plasma 200(H) 74 - 99 mg/dL 11/13/2024 7:16 AM EDT [facility] BUN, Plasma 10 8 - 23 mg/dL 11/13/2024 7:16 AM EDT [facility] Creatinine, Plasma 0.68(L) 0.70 - 1.20 mg/dL 11/13/2024 7:16 AM EDT [facility] BUN/Creatinine Ratio 15 11/13/2024 7:16 AM EDT [facility] Sodium, Plasma 135(L) 136 - 145 mmol/L 11/13/2024 7:16 AM EDT [facility] Potassium, Plasma 3.9 3.6 - 4.9 mmol/L 11/13/2024 7:16 AM EDT [facility] Chloride, Plasma 107 97 - 107 mmol/L 11/13/2024 7:16 AM EDT [facility] CO2, Plasma 21(L) 22 - 29 mmol/L 11/13/2024 7:16 AM EDT [facility] Anion Gap 7 6 - 16 mmol/L 11/13/2024 7:16 AM EDT [facility] Total Calcium, Plasma 8.1(L) 8.9 - 10.2 mg/dL 11/13/2024 7:16 AM EDT [facility] eGFRcr 103.2 mL/min/1.7 3m*2 11/13/2024 7:16 AM EDT [facility] Comment:Reported eGFRcr in m L/min/1.73m2 is based the CKD-EPI 2020 equation that does not use a race coefficient. Blood Venous blood specimen / Unknown Venipuncture / Unknown 11/13/2024 6:37 AM EDT 11/13/2024 6:44 AM EDT us Nathaly Nowak MD LAB BLOOD ORDERABLES Final Resu lt Performing Organization Address City/[facility]/ZIP Co de Phone Number [facility] [address] [place] [address] * (ABNORMAL) POCT glucose meter (11/12/2024 8:27 PM EDT) [facility] POCT Glucose 175(H) 74 - 99 [...] Comment 11/12/2024 8:29 PM EDT [facility] Respiratory Practitioner ID Nelda Gerber 11/13/19 8:29 PM EDT [facility] Device ID [id number] 11/12/2024 8:29 PM EDT [facility] Specimen Type POC Capillary 11/12/2024 8:29 PM EDT [facility] Blood Capillary blood specimen / Unknown 11/12/2024 8:27 PM EDT 11/12/2024 8:29 PM EDT us Nathaly Nowak MD LAB POINT OF CARE TE ST DOCKED DEVICE UNSOLICITED RESULTS Final Result [facility] [address] [place] [address] * (ABNORMAL) POCT glucose meter (11/12/2024 5:08 PM EDT) [facility] POCT Glucose 157(H) 74 - 99 [...] 11/12/2024 5:10 PM EDT [facility] Respiratory Practitioner ID Wade Feliciano 5:10 PM EDT [facility] Device ID [id number] 11/12/2024 5:10 PM EDT [facility] Specimen Type POC Capillary 11/12/2024 5:10 PM EDT [facility] Blood Capillary blood specimen / Unknown 11/12/2024 5:08 PM EDT 11/12/2024 5:10 PM EDT Nathaly Nowak MD LAB POINT OF CARE TE ST DOCKED DEVICE UNSOLICITED RESULTS Final Result [facility] [address] [place] [address] * (ABNORMAL) POCT glucose meter (11/12/2024 12:36 PM EDT) [facility] POCT Glucose 224(H) 74 - 99 [...] 11/12/2024 12:38 PM EDT [facility] Respiratory Practitioner ID Wade Feliciano 12:38 PM EDT [facility] Device ID [id number] 11/12/2024 12:38 PM EDT [facility] Specimen Type POC Capillary 11/12/2024 12:38 PM EDT [facility] Blood Capillary blood specimen / Unknown 11/12/2024 12:36 PM EDT 11/12/2024 12:38 PM EDT Nathaly Nowak MD LAB POINT OF CARE TE ST DOCKED DEVICE UNSOLICITED RESULTS Final Result Performing Organization Address City/[facility]/ZIP Co de Phone Number [facility] [address] [place] [address] * Clostridiodes (Clostridium) difficile PCR (11/12/2024 9:50 AM EDT) C difficile PCR toxin B gene DNA Result Not Detected Not Detected 11/12/2024 11:54 AM EDT [facility] Stool Rectum structure / Unknown Non-blood Collection / Unknown 11/12/2024 9:50 AM EDT 11/12/2024 10:04 AM EDT Narrative [facility] - 11/12/2024 11:54 AM [...] ATIYA FRITZ Final Result Performing Organization Address City/[facility]/ZIP Co de Phone Number [facility] [address] [place] [address] * Comprehensive GI Panel by PCR (11/12/2024 9:50 AM EDT) Campylobacter PCR Result Not Detected Not Detected 11/12/2024 2:47 PM EDT [facility] Plesiomonas shigelloides PCR Result Not Detected Not Detected 11/12/2024 2:47 PM EDT [facility] Salmonella PCR Result Not Detected Not Detected 11/12/2024 2:47 PM EDT [facility] Vibrio species PCR Result Not Detected Not Detected 11/12/2024 2:47 PM EDT [facility] Vibrio cholerae PCR Result Not Detected Not Detected 11/12/2024 2:47 PM EDT [facility] Yersinia enterocolitica PCR Result Not Detected Not Detected 11/12/2024 2:47 PM EDT [facility] Enteroaggregative E. coli (EAEC) PCR Result Not Detected Not Detected 11/12/2024 2:47 PM EDT [facility] Enteropathogenic E. coli (EPEC) PCR Result Not Detected Not Detected 11/12/2024 2:47 PM EDT [facility] Enterotoxigenic E. coli (ETEC) lt/st PCR Result Not Detected Not Detected 11/12/2024 2:47 PM EDT [facility] Shiga-like Toxin-Producing E.coli (STEC) stx1/stx2 PCR Resu Not Detected Not Detected 11/12/2024 2:47 PM EDT [facility] E coli 0157 PCR Result Not Detected Not Detected 11/12/2024 2:47 PM EDT [facility] Shigella/Enteroinvas tam E. coli (EIEC) PCR Result Not Detected Not Detected 11/12/2024 2:47 PM EDT [facility] Cryptosporidium PCR Result Not Detected Not Detected 11/12/2024 2:47 PM EDT [facility] Cyclospora cayetanensis PCR Result Not Detected Not Detected 11/12/2024 2:47 PM EDT [facility] Entamoeba histolytica PCR Result Not Detected Not Detected 11/12/2024 2:47 PM EDT [facility] Giardia duodenalis (aka Giardia lamblia) PCR Result Not Detected Not Detected 11/12/2024 2:47 PM EDT [facility] Adenovirus F 40/41 PCR Result Not Detected Not Detected 11/12/2024 2:47 PM EDT [facility] Astrovirus PCR Result Not Detected Not Detected 11/12/2024 2:47 PM EDT [facility] Norovirus GI/GII PCR Result Not Detected Not Detected 11/12/2024 2:47 PM EDT [facility] Rotavirus A PCR Result Not Detected Not Detected 11/12/2024 2:47 PM EDT [facility] Sapovirus PCR Result Not Detected Not Detected 11/12/2024 2:47 PM EDT [facility] Stool Rectum structure / Unknown Non-blood Collection / Unknown 11/12/2024 9:50 AM EDT 11/12/2024 10:04 AM EDT Narrative [facility] - 11/12/2024 2:47 PM EDT [...] clinically indicated. Nathaly Nowak MD LAB MICROBIOLOGY [facility] Final Result [facility] [address] [place] [address] * C-reactive protein (11/12/2024 9:48 AM EDT) CRP, Plasma <3.0 <=8.0 mg/L 11/12/2024 10:28 AM EDT [facility] Blood Venous blood specimen / Unknown Venipuncture / Unknown 11/12/2024 9:48 AM EDT 11/12/2024 9:59 AM EDT Narrative [facility] - 11/12/2024 10:28 AM EDT This CRP test is appropriate for assessment of infection, systemic inflammation and/or tissue injury. To assess cardiovascular disease risk order high sensitivity CRP (CRPH). us Nathaly Nowak MD LAB BLOOD ORDERABLES Final Resu lt Performing Organization Address City/[facility]/ZIP Co de Phone Number [facility] [address] [place] [address] * (ABNORMAL) POCT glucose meter (11/12/2024 8:20 AM EDT) [facility] POCT Glucose 138(H) 74 - 99 [...] Comment 11/12/2024 8:21 AM EDT [facility] Respiratory Practitioner ID Wade Feliciano 8:21 AM EDT [email or web address] Device ID [id number] 11/12/2024 8:21 AM EDT [facility] Specimen Type POC Capillary 11/12/2024 8:21 AM EDT [facility] Blood Capillary blood specimen / Unknown 11/12/2024 8:20 AM EDT 11/12/2024 8:21 AM EDT Nathaly Nowak MD LAB POINT OF CARE TE ST DOCKED DEVICE UNSOLICITED RESULTS Final Result Performing Organization Address [facility] Co de Phone Number [facility] [address] [place] [address] * (ABNORMAL) POCT glucose meter (11/11/2024 8:18 PM EDT) [facility] POCT Glucose 248(H) 74 - 99 [...] Comment 11/11/2024 8:20 PM EDT [facility] Respiratory Practitioner ID Nelda Gerber 11/12/19 8:20 PM EDT [facility] Device ID [id number] 11/11/2024 8:20 PM EDT [facility] Specimen Type POC Capillary 11/11/2024 8:20 PM EDT [facility] Blood Capillary blood specimen / Unknown 11/11/2024 8:18 PM EDT 11/11/2024 8:20 PM EDT Nathaly Nowak MD LAB POINT OF CARE TE ST DOCKED DEVICE UNSOLICITED RESULTS Final Result Performing Organization Address City/[facility]/ZIP Co de Phone Number [facility] [address] [place] [address] * (ABNORMAL) POCT glucose meter (11/11/2024 5:59 [...] 11/11/2024 6:01 PM EDT [facility] Respiratory Practitioner ID Wade Feliciano 6:01 PM EDT [facility] Device ID [id number] 11/11/2024 6:01 PM EDT [facility] Specimen Type POC Capillary 11/11/2024 6:01 PM EDT [facility] Blood Capillary blood specimen / Unknown 11/11/2024 5:59 PM EDT 11/11/2024 6:01 PM EDT Nathaly Nowak MD LAB POINT OF CARE TE ST DOCKED DEVICE UNSOLICITED RESULTS Final Result Performing Organization Address City/[facility]/ZIP Co de Phone Number [facility] [address] [place] [address] * POCT glucose meter (11/11/2024 5:20 PM [...] Comment 11/11/2024 5:22 PM EDT [facility] Respiratory Practitioner ID Wade Feliciano 5:22 PM EDT [facility] Device ID [id number] 11/11/2024 5:22 PM EDT [facility] Specimen Type POC Capillary 11/11/2024 5:22 PM EDT [facility] Blood Capillary blood specimen / Unknown 11/11/2024 5:20 PM EDT 11/11/2024 5:22 PM EDT Nathaly Nowak MD LAB POINT OF CARE TE ST DOCKED DEVICE UNSOLICITED RESULTS Final Result Performing Organization Address City/State/[facility] Co de Phone Number [facility] [address] [place] [address] * DE NEGATIVE PRESSURE WOUND THERAPY DME [...] glucose meter (11/11/2024 12:08 PM EDT) Pathologist [facility] POCT Glucose 226(H) 74 - 99 [...] Comment 11/11/2024 12:10 PM EDT [facility] Respiratory Practitioner ID Wade Feliciano 12:10 PM EDT [email or web address] Device ID [id number] 11/11/2024 12:10 PM EDT [facility] Specimen Type POC Capillary 11/11/2024 12:10 PM EDT [facility] Blood Capillary blood specimen / Unknown 11/11/2024 12:08 PM EDT 11/11/2024 12:10 PM EDT us Nathaly Nowak MD LAB POINT OF CARE TE ST DOCKED DEVICE UNSOLICITED RESULTS Final Result Performing Organization Address City/State/[facility] Co de Phone Number [facility] [address] [place] [address] * (ABNORMAL) POCT glucose meter (11/11/2024 9:08 AM EDT) Pathologist [facility] POCT Glucose 162(H) 74 - 99 [...] 11/11/2024 9:09 AM EDT [facility] Respiratory Practitioner ID Wade Feliciano 9:09 AM EDT [facility] Device ID [id number] 11/11/2024 9:09 AM EDT [facility] Specimen Type POC Capillary 11/11/2024 9:09 AM EDT [facility] Blood Capillary blood specimen / Unknown 11/11/2024 9:08 AM EDT 11/11/2024 9:09 AM EDT Nathaly Nowak MD LAB POINT OF CARE TE ST DOCKED DEVICE UNSOLICITED RESULTS Final Result Performing Organization Address City/[facility]/ZIP Co de Phone Number [facility] [address] [place] [address] * POCT glucose meter (11/11/2024 8:27 AM EDT) POCT Glucose 87 74 - 99 mg/dL 11/11/2024 8:28 AM EDT [email or web address] Comment:Accuracy of a glucos e result [...] for testing. Comment 11/11/2024 8:28 AM EDT [email or web address] Respiratory Practitioner ID Wade Feliciano 8:28 AM EDT [email or web address] Device ID [id number] 11/11/2024 8:28 AM EDT [facility] Specimen Type POC Capillary 11/11/2024 8:28 AM EDT [facility] Blood Capillary blood specimen / Unknown 11/11/2024 8:27 AM EDT 11/11/2024 8:28 AM EDT Nathaly Nowak MD LAB POINT OF CARE TE ST DOCKED DEVICE UNSOLICITED RESULTS Final Result Performing Organization Address City/[facility]/ZIP Co de Phone Number [facility] [address] [place] [address] * (ABNORMAL) Basic Metabolic Panel, Plasma (11/11/2024 1:12 AM EDT) Glucose, Plasma 122(H) 74 - 99 mg/dL 11/11/2024 1:12 AM EDT [facility] BUN, Plasma 10 8 - 23 mg/dL 11/11/2024 1:12 AM EDT [facility] Creatinine, Plasma 0.82 0.70 - 1.20 mg/dL 11/11/2024 1:12 AM EDT [facility] BUN/Creatinine Ratio 12 11/11/2024 1:12 AM EDT [facility] Sodium, Plasma 137 136 - 145 mmol/L 11/11/2024 1:12 AM EDT [facility] Potassium, Plasma 3.9 3.6 - 4.9 mmol/L 11/11/2024 1:12 AM EDT [facility] Chloride, Plasma 110(H) 97 - 107 mmol/L 11/11/2024 1:12 AM EDT [facility] CO2, Plasma 20(L) 22 - 29 mmol/L 11/11/2024 1:12 AM EDT [facility] Anion Gap 7 6 - 16 mmol/L 11/11/2024 1:12 AM EDT [facility] Total Calcium, Plasma 7.6(L) 8.9 - 10.2 mg/dL 11/11/2024 1:12 AM EDT [facility] eGFRcr 97.5 mL/min/1.7 3m*2 11/11/2024 1:12 AM EDT [facility] Comment:Reported eGFRcr in m L/min/1.73m2 is based the CKD-EPI 2020 equation that does not use a race coefficient. Blood Venous blood specimen / Unknown 11/11/2024 12:42 AM EDT us Nathaly Nowak MD LAB BLOOD ORDERABLES Final Resu lt [facility] [address] [place] [address] * (ABNORMAL) CBC W/O Differential (11/11/2024 12:56 AM EDT) WBC Count 11.83(H) 3.70 - 10.30 10*3/uL LAB HEMATOLOGY METHOD 11/11/2024 12:56 AM EDT [facility] RBC Count 2.97(L) 4.60 - 6.10 10*6/uL LAB HEMATOLOGY METHOD 11/11/2024 12:56 AM EDT [facility] HGB 8.9(L) 13.7 - 17.5 g/dL LAB HEMATOLOGY METHOD 11/11/2024 12:56 AM EDT [facility] HCT 27.2(L) 40.0 - 51.0 % LAB HEMATOLOGY METHOD 11/11/2024 12:56 AM EDT [facility] Platelet Count 444(H) 155 - 369 10*3/uL LAB HEMATOLOGY METHOD 11/11/2024 12:56 AM EDT [facility] MCV 92 79 - 98 fL LAB HEMATOLOGY METHOD 11/11/2024 12:56 AM EDT [facility] MCH 30.0 26.0 - 32.0 pg LAB HEMATOLOGY METHOD 11/11/2024 12:56 AM EDT [facility] MCHC 32.7 30.7 - 35.5 g/dL LAB HEMATOLOGY METHOD 11/11/2024 12:56 AM EDT [facility] RDW 13.3 11.5 - 14.5 % LAB HEMATOLOGY METHOD 11/11/2024 12:56 AM EDT [facility] MPV 9.0 8.8 - 12.5 fL LAB HEMATOLOGY METHOD 11/11/2024 12:56 AM EDT [facility] nRBC 0.0 <=0.0 per 100 WBCs LAB HEMATOLOGY METHOD 11/11/2024 12:56 AM EDT [facility] Blood Venous blood specimen / Unknown 11/11/2024 12:42 AM EDT us Nathaly Nowak MD LAB BLOOD ORDERABLES Final Resu lt [facility] [address] [place] [address] * (ABNORMAL) POCT glucose meter (11/10/2024 8:25 PM EDT) Pathologist [facility] POCT Glucose 144(H) 74 - 99 mg/dL 11/10/2024 8:28 PM EDT [facility] Comment:Accuracy of a glucos e [...] Comment 11/10/2024 8:28 PM EDT [facility] Respiratory Practitioner ID Nelda Gerber 11/11/19 8:28 PM EDT [facility] Device ID [id number] 11/10/2024 8:28 PM EDT [facility] Specimen Type POC Capillary 11/10/2024 8:28 PM EDT [facility] Blood Capillary blood specimen / Unknown 11/10/2024 8:25 PM EDT 11/10/2024 8:28 PM EDT Nathaly Nowak MD LAB POINT OF CARE TE ST DOCKED DEVICE UNSOLICITED RESULTS Final Result Performing Organization Address City/[facility] Co de Phone Number [facility] [address] [place] [address] * (ABNORMAL) POCT glucose meter (11/10/2024 4:45 PM EDT) [facility] POCT Glucose 155(H) 74 - 99 [...] Comment 11/10/2024 4:47 PM EDT [facility] Respiratory Practitioner ID Esperanza Parks 11/10/2024 4:47 PM EDT [facility] Device ID [id number] 11/10/2024 4:47 PM EDT [facility] Specimen Type POC Capillary 11/10/2024 4:47 PM EDT [facility] Blood Capillary blood specimen / Unknown 11/10/2024 4:45 PM EDT 11/10/2024 4:47 PM EDT us Nathaly Nowak MD LAB POINT OF CARE TE ST DOCKED DEVICE UNSOLICITED RESULTS Final Result [facility] [address] [place] [address] * (ABNORMAL) POCT glucose meter (11/10/2024 12:13 PM EDT) Pathologist [facility] POCT Glucose 131(H) 74 - 99 [...] Comment 11/10/2024 12:14 PM EDT [facility] Respiratory Practitioner ID Esperanza Parks 11/10/2024 12:14 PM EDT [facility] Device ID [id number] 11/10/2024 12:14 PM EDT [facility] Specimen Type POC Capillary 11/10/2024 12:14 PM EDT [facility] Blood Capillary blood specimen / Unknown 11/10/2024 12:13 PM EDT 11/10/2024 12:14 PM EDT Nathaly Nowak MD LAB POINT OF CARE TE ST DOCKED DEVICE UNSOLICITED RESULTS Final Result Performing Organization Address City/[facility]/ZIP Co de Phone Number [facility] [address] [place] [address] * Vancomycin, Peak, Plasma Please draw ~2 hours after 0800 dose of vancomycin finishes infusing. Consider obtaining level via peripheral stick. If peripheral stick is not feasible, please ensure that line is flushed well prior to drawing level. Than... (11/10/2024 10:56 AM EDT) Pathologist [facility] Vancomycin, Peak, Plasma 23.8 20.0 - 40.0 ug/mL 11/10/2024 11:25 AM EDT [facility] Blood Venous blood specimen / Unknown Venipuncture / Unknown 11/10/2024 10:56 AM EDT 11/10/2024 11:00 AM EDT Narrative [facility] - 11/10/2024 11:25 AM EDT Therapeutic Peak level: 20-40ug/mL Supra-therapeutic Peak level: >40 ug/mL us Abigail Seay MD LAB BLOOD ORDERABLES Final Res ult Performing Organization Address [facility] Co de Phone Number [facility] [address] [place] [address] * (ABNORMAL) POCT glucose meter (11/10/2024 8:03 [...] Comment 11/10/2024 8:04 AM EDT [facility] Respiratory Practitioner ID Esperanza Parks 11/10/2024 8:04 AM EDT [facility] Device ID [id number] 11/10/2024 8:04 AM EDT [facility] Specimen Type POC Capillary 11/10/2024 8:04 AM EDT [facility] Blood Capillary blood specimen / Unknown 11/10/2024 8:03 AM EDT 11/10/2024 8:04 AM EDT us Nathaly Nowka MD LAB POINT OF CARE TE ST DOCKED DEVICE UNSOLICITED RESULTS Final Result Performing Organization Address [facility] Co de Phone Number [facility] [address] [place] [address] * Vancomycin, Trough, Plasma Please draw ~30 minutes prior to dose due at 0800 on 11/10. Please do NOThold dose awaiting level to return. Consider obtaining level via peripheral stick. If peripheral stick is not feasible, please ensure that line is... (11/10/2024 7:27 AM EDT) Vancomycin, Trough, Plasma 16.2 10.0 - 20.0 ug/mL 11/10/2024 8:24 AM EDT [facility] Blood Venous blood specimen / Unknown Venipuncture / Unknown 11/10/2024 7:27 AM EDT 11/10/2024 7:51 AM EDT [facility] - 11/10/2024 8:24 AM EDT Therapeutic Trough level: 10-20ug/mL Supra-therapeutic Trough level: >20 ug/mL us Abigail Seay MD LAB BLOOD ORDERABLES Final Res ult [facility] [address] [place] [address] * (ABNORMAL) CBC and Differential (11/10/2024 12:31 AM EDT) WBC Count 10.80(H) 3.70 - 10.30 10*3/uL LAB HEMATOLOGY METHOD 11/10/2024 12:53 AM EDT [facility] RBC Count 3.06(L) 4.60 - 6.10 10*6/uL LAB HEMATOLOGY METHOD 11/10/2024 12:53 AM EDT [facility] HGB 9.1(L) 13.7 - 17.5 g/dL LAB HEMATOLOGY METHOD 11/10/2024 12:53 AM EDT [facility] HCT 28.0(L) 40.0 - 51.0 % LAB HEMATOLOGY METHOD 11/10/2024 12:53 AM EDT [facility] Platelet Count 501(H) 155 - 369 10*3/uL LAB HEMATOLOGY METHOD 11/10/2024 12:53 AM EDT [facility] MCV 92 79 - 98 fL LAB HEMATOLOGY METHOD 11/10/2024 12:53 AM EDT [facility] MCH 29.7 26.0 - 32.0 pg LAB HEMATOLOGY METHOD 11/10/2024 12:53 AM EDT [facility] MCHC 32.5 30.7 - 35.5 g/dL LAB HEMATOLOGY METHOD 11/10/2024 12:53 AM EDT [facility] RDW 13.2 11.5 - 14.5 % LAB HEMATOLOGY METHOD 11/10/2024 12:53 AM EDT [facility] MPV 8.8 8.8 - 12.5 fL LAB HEMATOLOGY METHOD 11/10/2024 12:53 AM EDT [facility] nRBC 0.0 <=0.0 per 100 WBCs LAB HEMATOLOGY METHOD 11/10/2024 12:53 AM EDT [facility] Differential Type Automated LAB HEMATOLOGY METHOD 11/10/2024 12:53 AM EDT [facility] Neutrophils % 77 % LAB HEMATOLOGY METHOD 11/10/2024 12:53 AM EDT [facility] Lymphocytes % 13 % LAB HEMATOLOGY METHOD 11/10/2024 12:53 AM EDT [facility] Monocytes % 8 % LAB HEMATOLOGY METHOD 11/10/2024 12:53 AM EDT [facility] Eosinophils % 1 % LAB HEMATOLOGY METHOD 11/10/2024 12:53 AM EDT [facility] Basophils % 0 % LAB HEMATOLOGY METHOD 11/10/2024 12:53 AM EDT [facility] Immature Granulocytes % 1 % LAB HEMATOLOGY METHOD 11/10/2024 12:53 AM EDT [facility] Neutrophils Absolute 8.32(H) 1.60 - 6.10 10*3/uL LAB HEMATOLOGY METHOD 11/10/2024 12:53 AM EDT [facility] Lymphocytes Absolute 1.40 1.20 - 3.90 10*3/uL LAB HEMATOLOGY METHOD 11/10/2024 12:53 AM EDT [facility] Monocytes Absolute 0.89 0.30 - 0.90 10*3/uL LAB HEMATOLOGY METHOD 11/10/2024 12:53 AM EDT [facility] Eosinophils Absolute 0.09 0.00 - 0.50 10*3/uL LAB HEMATOLOGY METHOD 11/10/2024 12:53 AM EDT [facility] Basophils Absolute 0.04 0.00 - 0.10 10*3/uL LAB HEMATOLOGY METHOD 11/10/2024 12:53 AM EDT [facility] Immature Granulocytes Absolute 0.06 0.00 - 0.06 10*3/uL LAB HEMATOLOGY METHOD 11/10/2024 12:53 AM EDT [facility] Blood Venous blood specimen / Unknown Venipuncture / Unknown 11/10/2024 12:31 AM EDT 11/10/2024 12:37 AM EDT Narrative [facility] - 11/10/2024 12:53 AM EDT Therapeutic decision making should be based on absolute values, rather than percentages. us Nathaly Nowak MD LAB BLOOD ORDERABLES Final Resu lt [facility] [address] [place] [address] * (ABNORMAL) Comprehensive Metabolic Panel, Plasma (11/10/2024 12:31 AM EDT) Glucose, Plasma 185(H) 74 - 99 mg/dL 11/10/2024 1:05 AM EDT [facility] BUN, Plasma 9 8 - 23 mg/dL 11/10/2024 1:05 AM EDT [facility] Creatinine, Plasma 0.72 0.70 - 1.20 mg/dL 11/10/2024 1:05 AM EDT [facility] BUN/Creatinine Ratio 13 11/10/2024 1:05 AM EDT [facility] Sodium, Plasma 135(L) 136 - 145 mmol/L 11/10/2024 1:05 AM EDT [facility] Potassium, Plasma 4.0 3.6 - 4.9 mmol/L 11/10/2024 1:05 AM EDT [facility] Chloride, Plasma 106 97 - 107 mmol/L 11/10/2024 1:05 AM EDT [facility] CO2, Plasma 19(L) 22 - 29 mmol/L 11/10/2024 1:05 AM EDT [facility] Anion Gap 10 6 - 16 mmol/L 11/10/2024 1:05 AM EDT [facility] Total Calcium, Plasma 7.8(L) 8.9 - 10.2 mg/dL 11/10/2024 1:05 AM EDT [facility] Total Protein 5.6(L) 6.3 - 7.9 g/dL 11/10/2024 1:05 AM EDT [facility] Albumin, Plasma 3.1(L) 3.5 - 5.2 g/dL 11/10/2024 1:05 AM EDT [facility] AST, Plasma 33 10 - 50 U/L 11/10/2024 1:05 AM EDT [facility] ALT, Plasma 25 10 - 50 U/L 11/10/2024 1:05 AM EDT [facility] Alkaline Phosphatase, Plasma 108 40 - 115 U/L 11/10/2024 1:05 AM EDT [facility] Total Bilirubin, Plasma <0.2(L) 0.2 - 1.1 mg/dL 11/10/2024 1:05 AM EDT [facility] eGFRcr 101.4 mL/min/1.7 3m*2 11/10/2024 1:05 AM EDT [facility] Comment:Reported eGFRcr in m L/min/1.73m2 is based the CKD-EPI 2020 equation that does not use a race coefficient. Blood Venous blood specimen / Unknown Venipuncture / Unknown 11/10/2024 12:31 AM EDT 11/10/2024 12:37 AM EDT us Nathaly Nowak MD LAB BLOOD ORDERABLES Final Resu lt [facility] [address] [place] [address] * (ABNORMAL) POCT glucose meter (11/09/2024 8:04 [...] Comment 11/09/2024 8:06 PM EDT [facility] Respiratory Practitioner ID Maximiliano Hansen II 11/09/2024 8:06 PM EDT [facility] Device ID [id number] 11/09/2024 8:06 PM EDT [facility] Specimen Type POC Capillary 11/09/2024 8:06 PM [facility]T [facility] Blood Capillary blood specimen / Unknown 11/09/2024 8:04 PM EDT 11/09/2024 8:06 PM EDT Nathaly Nowak MD LAB POINT OF CARE TE ST DOCKED DEVICE UNSOLICITED RESULTS Final Result Performing Organization Address [facility] de Phone Number HEALTHCARE LAB [address] [place] [address] * (ABNORMAL) POCT glucose meter (11/09/2024 4:36 PM EDT) [facility] POCT Glucose 166(H) 74 - 99 [...] Comment 11/09/2024 4:38 PM EDT [facility]ALTH[facility]ARE LAB Respiratory Practitioner ID Kristian Sosa 11/09/2024 4:38 PM EDT HEALTHCARE LAB Device ID [id number] 11/09/2024 4:38 PM EDT HEALTH[facility]ARE LAB Specimen Type POC Capillary 11/09/2024 4:38 PM EDT [facility] Blood Capillary blood specimen / Unknown 11/09/2024 4:36 PM EDT 11/09/2024 4:38 PM EDT Nathaly Nowak MD LAB POINT OF CARE TE ST DOCKED DEVICE UNSOLICITED RESULTS Final Result Performing Organization Address City/[facility] Co de Phone Number [facility] [address] [place] [address] * PICC SINGLE LUMEN (SMARTFORM LINK) (11/09/2024 1:11 PM EDT) Narrative Estefani Barraza RN - 11/09/2024 1:11 PM EDT Estefani Barraza RN 11/09/2024 1:12 PM Insert PICC line Date/Time: 11/09/2024 1:11 PM Performed by: Estefani Barraza RN Authorized by: Nathaly Nowak MD [place] Protocol: Verbal consent obtained?: Yes Written consent [...] selection rationale: Left pacemaker Catheter Lot #: [id number] Catheter sorter pricer: [facility] Catheter placed: Single lumen Catheter size: 4 Fr Catheter trimmed length: 42 Catheter threaded length: 42 Vein placed in: SVC Catheter cm indwellin Catheter cm outside: 0 Placement confirmed by: [employer] 3CG technology Pre-procedure: Landmarks identified Ultrasound guidance: [...] - 99 mg/dL 11/09/2024 11:51 AM EDT [employer] [facility] Comment:Accuracy of a glucos e [...] Comment 11/09/2024 11:51 AM EDT HEALTHCARE LAB Respiratory Practitioner Kristian Greco 11/09/2024 11:51 AM EDT HEALTHCARE LAB Device ID [id number] 11/09/2024 11:51 AM EDT HEALTHCARE LAB Specimen Type POC Capillary 11/09/2024 11:51 AM EDT [facility]ALTH[facility]ARE LAB Blood Capillary blood specimen / Unknown 11/09/2024 11:50 AM EDT 11/09/2024 11:51 AM EDT Nathaly Nowak MD LAB POINT OF CARE TE ST DOCKED DEVICE UNSOLICITED RESULTS Final Result Performing Organization Address City/[facility]/ZIP Co de Phone Number HEALTHCARE LAB [address] [place] [address] * (ABNORMAL) POCT glucose meter (11/09/2024 8:14 [...] Comment 11/09/2024 8:15 AM EDT HEALTHCARE LAB Respiratory Practitioner Kristian Greco 11/09/2024 8:15 AM EDT HEALTHCARE LAB Device ID [id number] 11/09/2024 8:15 AM EDT HEALTHCARE LAB Specimen Type POC Capillary 11/09/2024 8:15 AM EDT [facility]ALTH[facility] Blood Capillary blood specimen / Unknown 11/09/2024 8:14 AM EDT 11/09/2024 8:15 AM EDT Nathaly Nowak MD LAB POINT OF CARE TE ST DOCKED DEVICE UNSOLICITED RESULTS Final Result Performing Organization Address City/[facility]/ZIP Co de Phone Number HEALTHCARE LAB [address] [place] [address] * (ABNORMAL) CBC and Differential (11/09/2024 4:15 AM EDT) WBC Count 10.27 3.70 - 10.30 10*3/uL LAB HEMATOLOGY METHOD 11/09/2024 4:26 AM EDT [facility] RBC Count 3.14(L) 4.60 - 6.10 10*6/uL LAB HEMATOLOGY METHOD 11/09/2024 4:26 AM EDT [facility] HGB 9.2(L) 13.7 - 17.5 g/dL LAB HEMATOLOGY METHOD 11/09/2024 4:26 AM EDT [facility] HCT 28.3(L) 40.0 - 51.0 % LAB HEMATOLOGY METHOD 11/09/2024 4:26 AM EDT [facility] Platelet Count 468(H) 155 - 369 10*3/uL LAB HEMATOLOGY METHOD 11/09/2024 4:26 AM EDT [facility] MCV 90 79 - 98 fL LAB HEMATOLOGY METHOD 11/09/2024 4:26 AM EDT [facility] MCH 29.3 26.0 - 32.0 pg LAB HEMATOLOGY METHOD 11/09/2024 4:26 AM EDT [facility] MCHC 32.5 30.7 - 35.5 g/dL LAB HEMATOLOGY METHOD 11/09/2024 4:26 AM EDT [facility] RDW 13.1 11.5 - 14.5 % LAB HEMATOLOGY METHOD 11/09/2024 4:26 AM EDT [facility] MPV 8.7(L) 8.8 - 12.5 fL LAB HEMATOLOGY METHOD 11/09/2024 4:26 AM EDT [facility] nRBC 0.0 <=0.0 per 100 WBCs LAB HEMATOLOGY METHOD 11/09/2024 4:26 AM EDT [facility] Differential Type Automated LAB HEMATOLOGY METHOD 11/09/2024 4:26 AM EDT [facility] Neutrophils % 77 % LAB HEMATOLOGY METHOD 11/09/2024 4:26 AM EDT [facility] Lymphocytes % 13 % LAB HEMATOLOGY METHOD 11/09/2024 4:26 AM EDT [facility] Monocytes % 8 % LAB HEMATOLOGY METHOD 11/09/2024 4:26 AM EDT [facility] Eosinophils % 1 % LAB HEMATOLOGY METHOD 11/09/2024 4:26 AM EDT [facility] Basophils % 0 % LAB HEMATOLOGY METHOD 11/09/2024 4:26 AM EDT [facility] Immature Granulocytes % 1 % LAB HEMATOLOGY METHOD 11/09/2024 4:26 AM EDT [facility] Neutrophils Absolute 7.97(H) 1.60 - 6.10 10*3/uL LAB HEMATOLOGY METHOD 11/09/2024 4:26 AM EDT [facility] Lymphocytes Absolute 1.32 1.20 - 3.90 10*3/uL LAB HEMATOLOGY METHOD 11/09/2024 4:26 AM EDT [facility] Monocytes Absolute 0.83 0.30 - 0.90 10*3/uL LAB HEMATOLOGY METHOD 11/09/2024 4:26 AM EDT [facility] Eosinophils Absolute 0.07 0.00 - 0.50 10*3/uL LAB HEMATOLOGY METHOD 11/09/2024 4:26 AM EDT [facility] Basophils Absolute 0.03 0.00 - 0.10 10*3/uL LAB HEMATOLOGY METHOD 11/09/2024 4:26 AM EDT [facility] Immature Granulocytes Absolute 0.05 0.00 - 0.06 10*3/uL LAB HEMATOLOGY METHOD 11/09/2024 4:26 AM EDT [facility] Blood Venous blood specimen / Unknown Venipuncture / Unknown 11/09/2024 4:15 AM EDT 11/09/2024 4:18 AM EDT Narrative [facility] - 11/09/2024 4:26 AM EDT Therapeutic decision making should be based on absolute values, rather than percentages. us Nathaly Nowak MD LAB BLOOD ORDERABLES Final Resu lt [facility] [address] [place] [address] * (ABNORMAL) Comprehensive Metabolic Panel, Plasma (11/09/2024 4:15 AM EDT) Glucose, Plasma 171(H) 74 - 99 mg/dL 11/09/2024 4:47 AM EDT [facility] BUN, Plasma 9 8 - 23 mg/dL 11/09/2024 4:47 AM EDT [facility] Creatinine, Plasma 0.67(L) 0.70 - 1.20 mg/dL 11/09/2024 4:47 AM EDT [facility] BUN/Creatinine Ratio 13 11/09/2024 4:47 AM EDT [facility] Sodium, Plasma 134(L) 136 - 145 mmol/L 11/09/2024 4:47 AM EDT [facility] Potassium, Plasma 4.1 3.6 - 4.9 mmol/L 11/09/2024 4:47 AM EDT [facility] Chloride, Plasma 104 97 - 107 mmol/L 11/09/2024 4:47 AM EDT [facility] CO2, Plasma 21(L) 22 - 29 mmol/L 11/09/2024 4:47 AM EDT [facility] Anion Gap 9 6 - 16 mmol/L 11/09/2024 4:47 AM EDT [facility] Total Calcium, Plasma 8.4(L) 8.9 - 10.2 mg/dL 11/09/2024 4:47 AM EDT [facility] Total Protein 5.8(L) 6.3 - 7.9 g/dL 11/09/2024 4:47 AM EDT [facility] Albumin, Plasma 3.2(L) 3.5 - 5.2 g/dL 11/09/2024 4:47 AM EDT [facility] AST, Plasma 18 10 - 50 U/L 11/09/2024 4:47 AM EDT [facility] ALT, Plasma 17 10 - 50 U/L 11/09/2024 4:47 AM EDT [facility] Alkaline Phosphatase, Plasma 110 40 - 115 U/L 11/09/2024 4:47 AM EDT [facility] Total Bilirubin, Plasma <0.2(L) 0.2 - 1.1 mg/dL 11/09/2024 4:47 AM EDT [facility] eGFRcr 103.6 mL/min/1.7 3m*2 11/09/2024 4:47 AM EDT [facility] Comment:Reported eGFRcr in m L/min/1.73m2 is based the CKD-EPI 2020 equation that does not use a race coefficient. Blood Venous blood specimen / Unknown Venipuncture / Unknown 11/09/2024 4:15 AM EDT 11/09/2024 4:18 AM EDT Nathaly Nowak MD LAB BLOOD ORDERABLES Final Resu lt Performing Organization Address City/[facility]/ZIP Co de Phone Number [facility] [address] [place] [address] * (ABNORMAL) POCT glucose meter (11/09/2024 3:30 [...] Comment 11/09/2024 3:31 AM EDT HEALTHCARE LAB Respiratory Practitioner ID Maximiliano Hansen II 11/09/2024 3:31 AM EDT HEALTHCARE LAB Device ID [id number] 11/09/2024 3:31 AM EDT [facility] Specimen Type POC Capillary 11/09/2024 3:31 AM EDT [facility] Blood Capillary blood specimen / Unknown 11/09/2024 3:30 AM EDT 11/09/2024 3:31 AM EDT us Nathaly Nowak MD LAB POINT OF CARE TE ST DOCKED DEVICE UNSOLICITED RESULTS Final Result [facility] [address] [place] [address] * (ABNORMAL) POCT glucose meter (11/08/2024 7:21 [...] Comment 11/08/2024 7:22 PM EDT [facility]ALTH[facility]ARE LAB Respiratory Practitioner ID Maximiliano Hansen II 11/08/2024 7:22 PM EDT HEALTH[facility]ARE LAB Device ID [id number] 11/08/2024 7:22 PM EDT [facility]ALTH[facility]ARE LAB Specimen Type POC Capillary 11/08/2024 7:22 PM EDT [facility] Blood Capillary blood specimen / Unknown 11/08/2024 7:21 PM EDT 11/08/2024 7:22 PM EDT us Nathaly Nowak MD LAB POINT OF CARE TE ST DOCKED DEVICE UNSOLICITED RESULTS Final Result Performing Organization Address City/State/[facility] Co de Phone Number HEALTHCARE LAB [address] [place] [address] * (ABNORMAL) POCT glucose meter (11/08/2024 5:12 [...] Comment 11/08/2024 5:14 PM EDT [facility]ALTHCARE LAB Respiratory Practitioner ID Estefani Sheth 11/08/2024 5:14 PM EDT HEALTHCARE LAB Device ID [id number] 11/08/2024 5:14 PM EDT HEALTH[facility]ARE LAB Specimen Type POC Capillary 11/08/2024 5:14 PM EDT [facility] Blood Capillary blood specimen / Unknown 11/08/2024 5:12 PM EDT 11/08/2024 5:14 PM EDT us Nathaly Nowak MD LAB POINT OF CARE TE ST DOCKED DEVICE UNSOLICITED RESULTS Final Result Performing Organization Address City/[facility]/ZIP Co de Phone Number [facility] [address] [place] [address] * (ABNORMAL) POCT glucose meter (11/08/2024 12:03 [...] for testing. Comment 11/08/2024 12:05 PM EDT [facility] Respiratory Practitioner ID Estefani Sheth 11/08/2024 12:05 PM EDT [facility] Device ID [id number] 11/08/2024 12:05 PM EDT [facility] Specimen Type POC Capillary 11/08/2024 12:05 PM EDT [facility] Blood Capillary blood specimen / Unknown 11/08/2024 12:03 PM EDT 11/08/2024 12:05 PM EDT Nathaly Nowak MD LAB POINT OF CARE TE ST DOCKED DEVICE UNSOLICITED RESULTS Final Result Performing Organization Address City/[facility]/ZIP Co de Phone Number [facility]ALTHCARE [facility] [address] [place] [address] * Vancomycin, Peak, Plasma Please draw ~2 hours after 11/08 0600 dose of vancomycin finishes infusing.Consider obtaining level via peripheral stick. If peripheral stick is not feasible, please ensure that line is flushed well prior to drawing level.... (11/08/2024 9:24 AM EDT) Pathologist [facility] Vancomycin, Peak, Plasma 29.1 20.0 - 40.0 ug/mL 11/08/2024 10:31 AM EDT [facility] Blood Venous blood specimen / Unknown Venipuncture / Unknown 11/08/2024 9:24 AM EDT 11/08/2024 9:47 AM EDT Narrative [facility] - 11/08/2024 10:31 AM EDT Therapeutic Peak level: 20-40ug/mL Supra-therapeutic Peak level: >40 ug/mL us Nathaly Nowak MD LAB BLOOD ORDERABLES Final Resu lt Performing Organization Address City/[facility]/ZIP Co de Phone Number [facility] [address] [place] [address] * (ABNORMAL) POCT glucose meter (11/08/2024 8:00 AM EDT) Pathologist [facility] POCT Glucose 150(H) 74 - 99 [...] Comment 11/08/2024 8:01 AM EDT HEALTHCARE LAB Respiratory Practitioner ID Estefani Sheth 11/08/2024 8:01 AM EDT HEALTHCARE LAB Device ID [id number] 11/08/2024 8:01 AM EDT [facility] Specimen Type POC Capillary 11/08/2024 8:01 AM EDT [facility] Blood Capillary blood specimen / Unknown 11/08/2024 8:00 AM EDT 11/08/2024 8:01 AM EDT us Nathaly Nowak MD LAB POINT OF CARE TE ST DOCKED DEVICE UNSOLICITED RESULTS Final Result Performing Organization Address City/[facility]/ZIP Co de Phone Number [facility] [address] [place] [address] * (ABNORMAL) CBC and Differential (11/08/2024 4:39 AM EDT) WBC Count 9.18 3.70 - 10.30 10*3/uL LAB HEMATOLOGY METHOD 11/08/2024 4:58 AM EDT [facility] RBC Count 3.11(L) 4.60 - 6.10 10*6/uL LAB HEMATOLOGY METHOD 11/08/2024 4:58 AM EDT [facility] HGB 9.2(L) 13.7 - 17.5 g/dL LAB HEMATOLOGY METHOD 11/08/2024 4:58 AM EDT [facility] HCT 28.9(L) 40.0 - 51.0 % LAB HEMATOLOGY METHOD 11/08/2024 4:58 AM EDT [facility] Platelet Count 485(H) 155 - 369 10*3/uL LAB HEMATOLOGY METHOD 11/08/2024 4:58 AM EDT [facility] MCV 93 79 - 98 fL LAB HEMATOLOGY METHOD 11/08/2024 4:58 AM EDT [facility] MCH 29.6 26.0 - 32.0 pg LAB HEMATOLOGY METHOD 11/08/2024 4:58 AM EDT [facility] MCHC 31.8 30.7 - 35.5 g/dL LAB HEMATOLOGY METHOD 11/08/2024 4:58 AM EDT [facility] RDW 13.0 11.5 - 14.5 % LAB HEMATOLOGY METHOD 11/08/2024 4:58 AM EDT [facility] MPV 8.8 8.8 - 12.5 fL LAB HEMATOLOGY METHOD 11/08/2024 4:58 AM EDT [facility] nRBC 0.0 <=0.0 per 100 WBCs LAB HEMATOLOGY METHOD 11/08/2024 4:58 AM EDT [facility] Differential Type Automated LAB HEMATOLOGY METHOD 11/08/2024 4:58 AM EDT [facility] Neutrophils % 69 % LAB HEMATOLOGY METHOD 11/08/2024 4:58 AM EDT [facility] Lymphocytes % 17 % LAB HEMATOLOGY METHOD 11/08/2024 4:58 AM EDT [facility] Monocytes % 10 % LAB HEMATOLOGY METHOD 11/08/2024 4:58 AM EDT [facility] Eosinophils % 2 % LAB HEMATOLOGY METHOD 11/08/2024 4:58 AM EDT [facility] Basophils % 1 % LAB HEMATOLOGY METHOD 11/08/2024 4:58 AM EDT [facility] Immature Granulocytes % 1 % LAB HEMATOLOGY METHOD 11/08/2024 4:58 AM EDT [facility] Neutrophils Absolute 6.40(H) 1.60 - 6.10 10*3/uL LAB HEMATOLOGY METHOD 11/08/2024 4:58 AM EDT [facility] Lymphocytes Absolute 1.59 1.20 - 3.90 10*3/uL LAB HEMATOLOGY METHOD 11/08/2024 4:58 AM EDT [facility] Monocytes Absolute 0.87 0.30 - 0.90 10*3/uL LAB HEMATOLOGY METHOD 11/08/2024 4:58 AM EDT [facility] Eosinophils Absolute 0.22 0.00 - 0.50 10*3/uL LAB HEMATOLOGY METHOD 11/08/2024 4:58 AM EDT [facility] Basophils Absolute 0.05 0.00 - 0.10 10*3/uL LAB HEMATOLOGY METHOD 11/08/2024 4:58 AM EDT [facility] Immature Granulocytes Absolute 0.05 0.00 - 0.06 10*3/uL LAB HEMATOLOGY METHOD 11/08/2024 4:58 AM EDT [facility] Blood Venous blood specimen / Unknown Venipuncture / Unknown 11/08/2024 4:39 AM EDT 11/08/2024 4:49 AM EDT Narrative [facility] - 11/08/2024 4:58 AM EDT Therapeutic decision making should be based on absolute values, rather than percentages. us Nathaly Nowak MD LAB BLOOD ORDERABLES Final Resu lt [facility] [address] [place] [address] * (ABNORMAL) Comprehensive Metabolic Panel, Plasma (11/08/2024 4:39 AM EDT) Glucose, Plasma 255(H) 74 - 99 mg/dL 11/08/2024 5:20 AM EDT [facility] BUN, Plasma 10 8 - 23 mg/dL 11/08/2024 5:20 AM EDT [facility] Creatinine, Plasma 0.75 0.70 - 1.20 mg/dL 11/08/2024 5:20 AM EDT [facility] BUN/Creatinine Ratio 13 11/08/2024 5:20 AM EDT [facility] Sodium, Plasma 133(L) 136 - 145 mmol/L 11/08/2024 5:20 AM EDT [facility] Potassium, Plasma 5.2(H) 3.6 - 4.9 mmol/L 11/08/2024 5:20 AM EDT [facility] Chloride, Plasma 105 97 - 107 mmol/L 11/08/2024 5:20 AM EDT [facility] CO2, Plasma 20(L) 22 - 29 mmol/L 11/08/2024 5:20 AM EDT [facility] Anion Gap 8 6 - 16 mmol/L 11/08/2024 5:20 AM EDT [facility] Total Calcium, Plasma 7.7(L) 8.9 - 10.2 mg/dL 11/08/2024 5:20 AM EDT [facility] Total Protein 5.6(L) 6.3 - 7.9 g/dL 11/08/2024 5:20 AM EDT [facility] Albumin, Plasma 2.8(L) 3.5 - 5.2 g/dL 11/08/2024 5:20 AM EDT [facility] AST, Plasma 20 10 - 50 U/L 11/08/2024 5:20 AM EDT [facility] Comment:Hemolyzed, result ma y be falsely increased. ALT, Plasma 14 10 - 50 U/L 11/08/2024 5:20 AM EDT [facility] Alkaline Phosphatase, Plasma 119(H) 40 - 115 U/L 11/08/2024 5:20 AM EDT [facility] Total Bilirubin, Plasma <0.2(L) 0.2 - 1.1 mg/dL 11/08/2024 5:20 AM EDT [facility] eGFRcr 100.1 mL/min/1.7 3m*2 11/08/2024 5:20 AM EDT [facility] Comment:Reported eGFRcr in m L/min/1.73m2 is based the CKD-EPI 2020 equation that does not use a race coefficient. Blood Venous blood specimen / Unknown Venipuncture / Unknown 11/08/2024 4:39 AM EDT 11/08/2024 4:43 AM EDT Nathaly Nowak MD LAB BLOOD ORDERABLES Final Resu lt Performing Organization Address [facility] de Phone Number [facility] [address] [place] [phone] * Vancomycin, Trough, Plasma Please draw ~30 minutes prior to dose due at 0600 on 11/08. Please do NOThold dose awaiting level to return. Consider obtaining level via peripheral stick. If peripheral stick is not feasible, please ensure that line is... (11/08/2024 4:39 AM EDT) [facility] Vancomycin, Trough, Plasma 18.7 10.0 - 20.0 ug/mL 11/08/2024 5:22 AM EDT [facility] Blood Venous blood specimen / Unknown Venipuncture / Unknown 11/08/2024 4:39 AM EDT 11/08/2024 4:43 AM EDT Narrative [facility] - 11/08/2024 5:22 AM EDT Therapeutic Trough level: 10-20ug/mL Supra-therapeutic Trough level: >20 ug/mL Nathaly Nowak MD LAB BLOOD ORDERABLES Final Resu Performing Organization Address [facility] Phone Number [facility] [address] [place] [phone] * (ABNORMAL) POCT glucose meter (11/07/2024 7:26 PM EDT) [facility] POCT Glucose 172(H) 74 - 99 mg/dL 11/07/2024 7:28 PM EDT [facility] Comment:Accuracy of a glucos e result [...] 11/07/2024 7:28 PM EDT [facility] Respiratory Practitioner ID Hansen Maximiliano WALTERS 11/07/2024 7:28 PM EDT [facility] Device ID [id number] 11/07/2024 7:28 PM EDT [facility]ALTH[facility]ARE LAB Specimen Type POC Capillary 11/07/2024 7:28 PM EDT [facility] Blood Capillary blood specimen / Unknown 11/07/2024 7:26 PM EDT 11/07/2024 7:28 PM EDT Nathaly Nowak MD LAB POINT OF CARE TE ST DOCKED DEVICE UNSOLICITED RESULTS Final Result Performing Organization Address City/[facility]/ZIP Co de Phone Number [facility] [address] [place] [address] * (ABNORMAL) POCT glucose meter (11/07/2024 5:51 [...] Comment 11/07/2024 5:52 PM EDT [facility] Respiratory Practitioner ID Brigitte Castellon 11/07/2024 5:52 PM EDT [facility]ALTH[facility] LAB Device ID [id number] 11/07/2024 5:52 PM EDT [facility] Specimen Type POC Capillary 11/07/2024 5:52 PM EDT [facility] Blood Capillary blood specimen / Unknown 11/07/2024 5:51 PM EDT 11/07/2024 5:52 PM EDT Nathaly Nowak MD LAB POINT OF CARE TE ST DOCKED DEVICE UNSOLICITED RESULTS Final Result Performing Organization Address City/[facility]/ZIP Co de Phone Number [facility] [address] [place] [address] * (ABNORMAL) POCT glucose meter (11/07/2024 4:47 [...] 11/07/2024 4:48 PM EDT [facility] Respiratory Practitioner ID Estefani Sheth 11/07/2024 4:48 PM EDT [facility] Device ID [id number] 11/07/2024 4:48 PM EDT [facility]ALTH[facility]ARE LAB Specimen Type POC Capillary 11/07/2024 4:48 PM EDT [facility] Blood Capillary blood specimen / Unknown 11/07/2024 4:47 PM EDT 11/07/2024 4:48 PM EDT Nathaly Nowak MD LAB POINT OF CARE TE ST DOCKED DEVICE UNSOLICITED RESULTS Final Result Performing Organization Address City/State/[facility] Co de Phone Number [facility] [address] [place] [address] * (ABNORMAL) POCT glucose meter (11/07/2024 12:22 PM EDT) [facility] POCT Glucose 172(H) 74 - 99 [...] 11/07/2024 12:24 PM EDT [facility] Respiratory Practitioner ID Estefani Sheth 11/07/2024 12:24 PM EDT [facility] Device ID [id number] 11/07/2024 12:24 PM EDT [facility] Specimen Type POC Capillary 11/07/2024 12:24 PM EDT [facility]ALTH[facility] Blood Capillary blood specimen / Unknown 11/07/2024 12:22 PM EDT 11/07/2024 12:24 PM EDT us Nathaly Nowak MD LAB POINT OF CARE TE ST DOCKED DEVICE UNSOLICITED RESULTS Final Result [facility] [address] [place] [address] * (ABNORMAL) CBC and Differential (11/07/2024 11:37 AM EDT) WBC Count 9.96 3.70 - 10.30 10*3/uL LAB HEMATOLOGY METHOD 11/07/2024 12:33 PM EDT [facility] RBC Count 2.81(L) 4.60 - 6.10 10*6/uL LAB HEMATOLOGY METHOD 11/07/2024 12:33 PM EDT [facility] HGB 8.5(L) 13.7 - 17.5 g/dL LAB HEMATOLOGY METHOD 11/07/2024 12:33 PM EDT [facility] HCT 26.0(L) 40.0 - 51.0 % LAB HEMATOLOGY METHOD 11/07/2024 12:33 PM EDT [facility] Platelet Count 524(H) 155 - 369 10*3/uL LAB HEMATOLOGY METHOD 11/07/2024 12:33 PM EDT [facility] MCV 93 79 - 98 fL LAB HEMATOLOGY METHOD 11/07/2024 12:33 PM EDT [facility] MCH 30.2 26.0 - 32.0 pg LAB HEMATOLOGY METHOD 11/07/2024 12:33 PM EDT [facility] MCHC 32.7 30.7 - 35.5 g/dL LAB HEMATOLOGY METHOD 11/07/2024 12:33 PM EDT [facility] RDW 13.1 11.5 - 14.5 % LAB HEMATOLOGY METHOD 11/07/2024 12:33 PM EDT [facility] MPV 9.0 8.8 - 12.5 fL LAB HEMATOLOGY METHOD 11/07/2024 12:33 PM EDT [facility] nRBC 0.0 <=0.0 per 100 WBCs LAB HEMATOLOGY METHOD 11/07/2024 12:33 PM EDT [facility] Differential Type Automated LAB HEMATOLOGY METHOD 11/07/2024 12:33 PM EDT [facility] Neutrophils % 72 % LAB HEMATOLOGY METHOD 11/07/2024 12:33 PM EDT [facility] Lymphocytes % 17 % LAB HEMATOLOGY METHOD 11/07/2024 12:33 PM EDT [facility] Monocytes % 9 % LAB HEMATOLOGY METHOD 11/07/2024 12:33 PM EDT [facility] Eosinophils % 1 % LAB HEMATOLOGY METHOD 11/07/2024 12:33 PM EDT [facility] Basophils % 1 % LAB HEMATOLOGY METHOD 11/07/2024 12:33 PM EDT [facility] Immature Granulocytes % 0 % LAB HEMATOLOGY METHOD 11/07/2024 12:33 PM EDT [facility] Neutrophils Absolute 7.19(H) 1.60 - 6.10 10*3/uL LAB HEMATOLOGY METHOD 11/07/2024 12:33 PM EDT [facility] Lymphocytes Absolute 1.66 1.20 - 3.90 10*3/uL LAB HEMATOLOGY METHOD 11/07/2024 12:33 PM EDT [facility] Monocytes Absolute 0.88 0.30 - 0.90 10*3/uL LAB HEMATOLOGY METHOD 11/07/2024 12:33 PM EDT [facility] Eosinophils Absolute 0.14 0.00 - 0.50 10*3/uL LAB HEMATOLOGY METHOD 11/07/2024 12:33 PM EDT [facility] Basophils Absolute 0.05 0.00 - 0.10 10*3/uL LAB HEMATOLOGY METHOD 11/07/2024 12:33 PM EDT [facility] Immature Granulocytes Absolute 0.04 0.00 - 0.06 10*3/uL LAB HEMATOLOGY METHOD 11/07/2024 12:33 PM EDT [facility] Blood Venous blood specimen / Unknown Venipuncture / Unknown 11/07/2024 11:37 AM EDT 11/07/2024 12:24 PM EDT [facility] - 11/07/2024 12:33 PM EDT Therapeutic decision making should be based on absolute values, rather than percentages. us Nathaly Nowak MD LAB BLOOD ORDERABLES Final Resu lt [facility] [address] [place] [address] * (ABNORMAL) Comprehensive Metabolic Panel, Plasma (11/07/2024 11:37 AM EDT) Glucose, Plasma 173(H) 74 - 99 mg/dL 11/07/2024 1:31 PM EDT [facility] BUN, Plasma 13 8 - 23 mg/dL 11/07/2024 1:31 PM EDT [facility] Creatinine, Plasma 0.92 0.70 - 1.20 mg/dL 11/07/2024 1:31 PM EDT [facility] BUN/Creatinine Ratio 11/07/2024 1:31 PM EDT [facility] Sodium, Plasma 136 136 - 145 mmol/L 11/07/2024 1:31 PM EDT [facility] [facility] Potassium, Plasma 4.0 3.6 - 4.9 mmol/L 11/07/2024 1:31 PM EDT [facility] Chloride, Plasma 104 97 - 107 mmol/L 11/07/2024 1:31 PM EDT [facility] CO2, Plasma 23 22 - 29 mmol/L 11/07/2024 1:31 PM EDT [facility] Anion Gap 9 6 - 16 mmol/L 11/07/2024 1:31 PM EDT [facility] Total Calcium, Plasma 7.8(L) 8.9 - 10.2 mg/dL 11/07/2024 1:31 PM EDT [facility] Total Protein 5.7(L) 6.3 - 7.9 g/dL 11/07/2024 1:31 PM EDT [facility] Albumin, Plasma 3.0(L) 3.5 - 5.2 g/dL 11/07/2024 1:31 PM EDT [facility] AST, Plasma 15 10 - 50 U/L 11/07/2024 1:31 PM EDT [facility] ALT, Plasma 16 10 - 50 U/L 11/07/2024 1:31 PM EDT [facility] Alkaline Phosphatase, Plasma 119(H) 40 - 115 U/L 11/07/2024 1:31 PM EDT [facility] Total Bilirubin, Plasma <0.2(L) 0.2 - 1.1 mg/dL 11/07/2024 1:31 PM EDT [facility] eGFRcr 92.3 mL/min/1.7 3m*2 11/07/2024 1:31 PM EDT [facility] Comment:Reported eGFRcr in m L/min/1.73m2 is based the CKD-EPI 2020 equation that does not use a race coefficient. Blood Venous blood specimen / Unknown Venipuncture / Unknown 11/07/2024 11:37 AM EDT 11/07/2024 12:23 PM EDT Nathaly Nowak MD LAB BLOOD ORDERABLES Final Resu lt Performing Organization Address City/[facility]/ZIP Co de Phone Number [facility] [address] [place] [address] * Type and Screen (11/07/2024 11:37 AM EDT) Pathologist [facility] ABO/Rh A Negative 11/06/2024 8:56 AM EDT BLO[facility] Antibody Screen Negative 11/06/2024 8:56 AM EDT BLO[facility]ANK Specimen Expiration 11/10/2024 23:59 11/06/2024 8:56 AM EDT BLO[facility] Blood Venous blood specimen / Unknown Venipuncture / Unknown 11/07/2024 11:37 AM EDT 11/07/2024 11:50 AM EDT Sabrina DOSHI LAB BLOOD BANK TEST ORDERABLES F inal Result Performing Organization Address [facility] de Phone Number BLOOD BANK [address] [place] [address], * (ABNORMAL) POCT glucose meter (11/07/2024 10:34 AM EDT) Pathologist [facility] POCT Glucose 199(H) 74 - 99 mg/dL 11/07/2024 10:36 AM EDT [email or web address] Comment:Accuracy of a glucos e result [...] Comment 11/07/2024 10:36 AM EDT [facility] Respiratory Practitioner ID Joy Iraheta 11/07/2024 10:36 AM EDT [facility] Device ID [id number] 11/07/2024 10:36 AM EDT [facility] Specimen Type POC Capillary 11/07/2024 10:36 AM EDT [facility] Blood Capillary blood specimen / Unknown 11/07/2024 10:34 AM EDT 11/07/2024 10:36 AM EDT Nathaly Nowak MD LAB POINT OF CARE TE ST DOCKED DEVICE UNSOLICITED RESULTS Final Result Performing Organization Address City/[facility] Co de Phone Number [facility] [address] [place] [address] * (ABNORMAL) POCT glucose meter (11/07/2024 9:34 AM EDT) [facility] POCT Glucose 208(H) 74 - 99 [...] Comment 11/07/2024 9:36 AM EDT [facility] Respiratory Practitioner ID Brigitte Castellon 11/07/2024 9:36 AM EDT [facility] Device ID [id number] 11/07/2024 9:36 AM EDT [facility] Specimen Type POC Capillary 11/07/2024 9:36 AM EDT [facility] Blood Capillary blood specimen / Unknown 11/07/2024 9:34 AM EDT 11/07/2024 9:36 AM EDT Nathaly Nowak MD LAB POINT OF CARE TE ST DOCKED DEVICE UNSOLICITED RESULTS Final Result [facility] [address] [place] [address] * (ABNORMAL) POCT glucose meter (11/07/2024 8:20 AM EDT) [facility] POCT Glucose 137(H) 74 - 99 [...] 11/07/2024 8:22 AM EDT [facility] Respiratory Practitioner ID Estefani Sheth Chris 11/07/2024 8:22 AM EDT [facility] Device ID [id number] 11/07/2024 8:22 AM EDT [facility] Specimen Type POC Capillary 11/07/2024 8:22 AM EDT [facility] Blood Capillary blood specimen / Unknown 11/07/2024 8:20 AM EDT 11/07/2024 8:22 AM EDT Nathaly Nowak MD LAB POINT OF CARE TE ST DOCKED DEVICE UNSOLICITED RESULTS Final Result [facility] [address] [place] [address] * (ABNORMAL) POCT glucose meter (11/07/2024 7:21 AM EDT) [facility] POCT Glucose 151(H) 74 - 99 [...] 11/07/2024 7:22 AM EDT [facility] Respiratory Practitioner ID Brigitte Castellon 11/07/2024 7:22 AM EDT [facility] Device ID [id number] 11/07/2024 7:22 AM EDT [facility] Specimen Type POC Capillary 11/07/2024 7:22 AM EDT [facility] Blood Capillary blood specimen / Unknown 11/07/2024 7:21 AM EDT 11/07/2024 7:22 AM EDT Nathaly Nowak MD LAB POINT OF CARE TE ST DOCKED DEVICE UNSOLICITED RESULTS Final Result Performing Organization Address City/[facility] Co de Phone Number [facility] [address] [place] [address] * (ABNORMAL) POCT glucose meter (11/07/2024 6:25 [...] Comment 11/07/2024 6:27 AM EDT [facility] Respiratory Practitioner ID Nelda Gerber 11/08/19 6:27 AM EDT [facility] Device ID [id number] 11/07/2024 6:27 AM EDT [facility] Specimen Type POC Capillary 11/07/2024 6:27 AM EDT [facility] Blood Capillary blood specimen / Unknown 11/07/2024 6:25 AM EDT 11/07/2024 6:27 AM EDT us Nathaly Nowak MD LAB POINT OF CARE TE ST DOCKED DEVICE UNSOLICITED RESULTS Final Result Performing Organization Address City/[facility] Co de Phone Number [facility] [address] [place] [address] * (ABNORMAL) POCT glucose meter (11/07/2024 5:03 [...] Comment 11/07/2024 5:08 AM EDT [facility] Respiratory Practitioner ID Nelda Gerber 11/08/19 5:08 AM EDT [facility] Device ID [id number] 11/07/2024 5:08 AM EDT [facility] Specimen Type POC Capillary 11/07/2024 5:08 AM EDT [facility] Blood Capillary blood specimen / Unknown 11/07/2024 5:03 AM EDT 11/07/2024 5:08 AM EDT Nathaly Nowak MD LAB POINT OF CARE TE ST DOCKED DEVICE UNSOLICITED RESULTS Final Result [facility] [address] [place] [address] * (ABNORMAL) POCT glucose meter (11/07/2024 4:16 AM EDT) [facility] POCT Glucose 142(H) 74 - 99 [...] 11/07/2024 4:18 AM EDT [facility] Respiratory Practitioner ID Nelda Gerber 11/08/19 4:18 AM EDT [facility] Device ID [id number] 11/07/2024 4:18 AM EDT [facility] Specimen Type POC Capillary 11/07/2024 4:18 AM EDT [facility] Blood Capillary blood specimen / Unknown 11/07/2024 4:16 AM EDT 11/07/2024 4:18 AM EDT Nathaly Nowak MD LAB POINT OF CARE TE ST DOCKED DEVICE UNSOLICITED RESULTS Final Result Performing Organization Address [facility] de Phone Number [facility] [address] [place] [address] * (ABNORMAL) POCT glucose meter (11/07/2024 3:21 AM EDT) Pathologist [facility] POCT Glucose 141(H) 74 - 99 [...] for testing. Comment 11/07/2024 3:23 AM EDT [facility] Respiratory Practitioner ID Nelda Gerber 11/08/19 3:23 AM EDT [facility] Device ID [id number] 11/07/2024 3:23 AM EDT [facility] Specimen Type POC Capillary 11/07/2024 3:23 AM EDT [facility] Blood Capillary blood specimen / Unknown 11/07/2024 3:21 AM EDT 11/07/2024 3:23 AM EDT us Nathaly Nowak MD LAB POINT OF CARE TE ST DOCKED DEVICE UNSOLICITED RESULTS Final Result Performing Organization Address City/[facility] de Phone Number [facility] [address] [place] [address] * (ABNORMAL) POCT glucose meter (11/07/2024 2:10 AM EDT) Pathologist [facility] POCT Glucose 146(H) 74 - 99 [...] 11/07/2024 2:12 AM EDT [facility] Respiratory Practitioner ID Nelda Gerber 11/08/19 2:12 AM EDT [facility] Device ID [id number] 11/07/2024 2:12 AM EDT [facility] Specimen Type POC Capillary 11/07/2024 2:12 AM EDT [facility] Blood Capillary blood specimen / Unknown 11/07/2024 2:10 AM EDT 11/07/2024 2:12 AM EDT Nathaly Nowak MD LAB POINT OF CARE TE ST DOCKED DEVICE UNSOLICITED RESULTS Final Result Performing Organization Address [facility] de Phone Number [facility] [address] [place] [address] * (ABNORMAL) POCT glucose meter (11/07/2024 1:08 [...] Comment 11/07/2024 1:10 AM EDT [facility] Respiratory Practitioner ID Nelda Gerber 11/08/19 1:10 AM EDT [facility] Device ID [id number] 11/07/2024 1:10 AM EDT [facility] Specimen Type POC Capillary 11/07/2024 1:10 AM EDT [facility] Blood Capillary blood specimen / Unknown 11/07/2024 1:08 AM EDT 11/07/2024 1:10 AM EDT us Nathaly Nowak MD LAB POINT OF CARE TE ST DOCKED DEVICE UNSOLICITED RESULTS Final Result Performing Organization Address [facility] Co de Phone Number [facility] [address] [place] [address] * (ABNORMAL) POCT glucose meter (11/07/2024 12:10 AM EDT) [facility] POCT Glucose 127(H) 74 - 99 [...] Comment 11/07/2024 12:13 AM EDT [facility] Respiratory Practitioner ID Nelda Gerber 11/08/19 12:13 AM EDT [employer] [facility] Device ID [id number] 11/07/2024 12:13 AM EDT [facility] Specimen Type POC Capillary 11/07/2024 12:13 AM EDT [facility] Blood Capillary blood specimen / Unknown 11/07/2024 12:10 AM EDT 11/07/2024 12:13 AM EDT Nathaly Nowak MD LAB POINT OF CARE TE ST DOCKED DEVICE UNSOLICITED RESULTS Final Result [facility] [address] [place] [address] * (ABNORMAL) POCT glucose meter (11/06/2024 11:14 PM EDT) [facility] POCT Glucose 71(L) 74 - 99 [...] 11/06/2024 11:16 PM EDT [facility] Respiratory Practitioner ID Nelda Gerber 11/07/19 11:16 PM EDT [facility] Device ID [id number] 11/06/2024 11:16 PM EDT [facility] Specimen Type POC Capillary 11/06/2024 11:16 PM EDT [facility] Blood Capillary blood specimen / Unknown 11/06/2024 11:14 PM EDT 11/06/2024 11:16 PM EDT Nathaly Nowak MD LAB POINT OF CARE TE ST DOCKED DEVICE UNSOLICITED RESULTS Final Result Performing Organization Address City/[facility]/ZIP Co de Phone Number [facility] [address] [place] [address] * (ABNORMAL) POCT glucose meter (11/06/2024 10:07 [...] Comment 11/06/2024 10:09 PM EDT [facility] Respiratory Practitioner ID Nelda Gerber 11/07/19 10:09 PM EDT [facility] Device ID [id number] 11/06/2024 10:09 PM EDT [facility] Specimen Type POC Capillary 11/06/2024 10:09 PM EDT [facility] Blood Capillary blood specimen / Unknown 11/06/2024 10:07 PM EDT 11/06/2024 10:09 PM EDT Nathaly Nowak MD LAB POINT OF CARE TE ST DOCKED DEVICE UNSOLICITED RESULTS Final Result Performing Organization Address City/[facility]/ZIP Co de Phone Number [facility] [address] [place] [address] * (ABNORMAL) POCT glucose meter (11/06/2024 8:22 [...] 11/06/2024 8:25 PM EDT [facility] Respiratory Practitioner ID Nelda Gerber 11/07/19 8:25 PM EDT [facility] Device ID [id number] 11/06/2024 8:25 PM EDT [facility] Specimen Type POC Capillary 11/06/2024 8:25 PM EDT [facility] Blood Capillary blood specimen / Unknown 11/06/2024 8:22 PM EDT 11/06/2024 8:25 PM EDT us Nathaly Nowak MD LAB POINT OF CARE TE ST DOCKED DEVICE UNSOLICITED RESULTS Final Result Performing Organization Address City/State/[facility] Co de Phone Number [facility] [address] [place] [address] * (ABNORMAL) POCT glucose meter (11/06/2024 7:31 PM EDT) [facility] POCT Glucose 359(H) 74 - 99 [...] 11/06/2024 7:32 PM EDT [facility] Respiratory Practitioner ID Nelda Gerber 11/07/19 7:32 PM EDT [facility] Device ID [id number] 11/06/2024 7:32 PM EDT [facility] Specimen Type POC Capillary 11/06/2024 7:32 PM EDT [facility] Blood Capillary blood specimen / Unknown 11/06/2024 7:31 PM EDT 11/06/2024 7:32 PM EDT Nathaly Nowak MD LAB POINT OF CARE TE ST DOCKED DEVICE UNSOLICITED RESULTS Final Result Performing Organization Address City/[facility] Co de Phone Number [facility] [address] [place] [address] * (ABNORMAL) POCT glucose meter (11/06/2024 6:15 [...] for testing. Comment 11/06/2024 6:17 PM EDT [email or web address] Respiratory Practitioner ID Estefani Sheth 11/06/2024 6:17 PM EDT [email or web address] Device ID [id number] 11/06/2024 6:17 PM EDT [facility] Specimen Type POC Capillary 11/06/2024 6:17 PM EDT [facility] Blood Capillary blood specimen / Unknown 11/06/2024 6:15 PM EDT 11/06/2024 6:17 PM EDT Nathaly Nowak MD LAB POINT OF CARE TE ST DOCKED DEVICE UNSOLICITED RESULTS Final Result Performing Organization Address City/[facility] Co de Phone Number [facility] [address] [place] [address] * (ABNORMAL) POCT glucose meter (11/06/2024 4:57 [...] Comment 11/06/2024 4:58 PM EDT [facility] Respiratory Practitioner ID Estefani Sheth 11/06/2024 4:58 PM EDT [facility] Device ID [id number] 11/06/2024 4:58 PM EDT [facility] Specimen Type POC Capillary 11/06/2024 4:58 PM EDT [facility] Blood Capillary blood specimen / Unknown 11/06/2024 4:57 PM EDT 11/06/2024 4:58 PM EDT us Nathaly Nowak MD LAB POINT OF CARE TE ST DOCKED DEVICE UNSOLICITED RESULTS Final Result Performing Organization Address City/[facility]/ZIP Co de Phone Number [facility] [address] [place] [address] * (ABNORMAL) POCT glucose meter (11/06/2024 2:08 [...] Comment 11/06/2024 2:09 PM EDT [facility] Respiratory Practitioner ID Brigitte Castellon 11/06/2024 2:09 PM EDT [facility] Device ID [id number] 11/06/2024 2:09 PM EDT [facility] Specimen Type POC Capillary 11/06/2024 2:09 PM EDT [facility] Blood Capillary blood specimen / Unknown 11/06/2024 2:08 PM EDT 11/06/2024 2:09 PM EDT us Nathaly Nowak MD LAB POINT OF CARE TE ST DOCKED DEVICE UNSOLICITED RESULTS Final Result Performing Organization Address City/[facility]/ZIP Co de Phone Number [facility] [address] [place] [address] * (ABNORMAL) POCT glucose meter (11/06/2024 12:27 [...] Comment 11/06/2024 12:28 PM EDT [facility] Respiratory Practitioner ID Jacinta Galloway 11/06/2024 12:28 PM EDT [facility] Device ID [id number] 11/06/2024 12:28 PM EDT [facility] Specimen Type POC Capillary 11/06/2024 12:28 PM EDT [facility] Blood Capillary blood specimen / Unknown 11/06/2024 12:27 PM EDT 11/06/2024 12:28 PM EDT us Nathaly Nowak MD LAB POINT OF CARE TE ST DOCKED DEVICE UNSOLICITED RESULTS Final Result Performing Organization Address City/State/[facility] Co de Phone Number [facility] [address] [place] [address] * (ABNORMAL) Tissue Culture and Gram Stain (11/06/2024 11:34 AM EDT) [facility] Culture Moderate Growth 7:35 AM EDT [facility] Culture 2+ Enterobacter cloacae complex(A) ANGÉLICA 11/15/2024 7:35 AM EDT [facility] Comment: This isolate has been identified using the FDA Approved [facility] [place] System The organism value for this result has been updated. These results have been appended to the previously preliminary verified report. Edited result: Previously reported as Gram Negative Jesus on 11/07/2024 at 1434 EDT. Culture 2+ Streptococcus mitis/oralis group(A) ANGÉLICA 11/15/2024 7:35 AM EDT [facility] Comment: This isolate has been identified using the FDA Approved [employer] [place] System The organism value for this result has been updated. These results have been appended to the previously preliminary verified report. Culture 2+ Pasteurella stomatis(A) ANGÉLICA 11/15/2024 7:35 AM EDT [facility] Comment: This result was determined by [employer] tof mass spectrometry using the [employer] database and is for research use only. The organism value for this result has been updated. These results have been appended to the previously preliminary verified report. Gram Stain Result Few Gram negative rods(A) 11/15/2024 7:35 AM EDT [facility] Gram Stain Result Moderate Polymorphonuclear leukocytes(A) 11/15/2024 7:35 AM EDT [facility] Gram Stain Result Few Gram positive cocci in pairs(A) 11/15/2024 7:35 AM EDT [facility] Tissue Topography unknown / Unknown 11/06/2024 11:34 AM EDT 11/06/2024 12:18 PM EDT Comment:Pre-op diagnosis: Surgical wound infection [T81.49XA] Narrative [facility] - 11/15/2024 7:35 AM EDT [...] GENERAL ORDE LAM Edited Result - Final [facility] [address] [place] [address] * (ABNORMAL) Anaerobic Culture (11/06/2024 11:34 AM EDT) Culture No anaerobes isolated 11/14/2024 1:25 PM EDT [facility] Culture Staphylococcus pseudintermedius( A) 11/14/2024 1:25 PM EDT [facility] Comment: This result was determined by [employer] tof mass spectrometry using the [employer] database and is for research use only. This is an appended report. These results have been appended to a previously final verified report. Tissue Topography unknown / Unknown 11/06/2024 11:34 AM EDT 11/06/2024 12:18 PM EDT Comment:Pre-op diagnosis: Surgical wound infection [T81.49XA] Narrative [facility] - 11/14/2024 1:25 PM [...] GENERAL ORDAna FRITZ Edited Result - Final [facility] [address] [place] [address] * (ABNORMAL) Routine Culture and Gram Stain (11/06/2024 11:29 AM EDT) Culture Moderate Growth 5:29 PM EDT [facility] Culture Enterobacter cloacae complex(A) 11/08/2024 5:29 PM EDT [facility] Comment: This isolate has been identified using the FDA Approved [employer] [place] System For susceptibility results refer to: - [id number] The organism value for this result has been updated. These results have been appended to the previously preliminary verified report. Gram Stain Result No polymorphonuclear leukocytes seen 11/08/2024 5:29 PM EDT [facility] Gram Stain Result No organisms seen 11/08/2024 5:29 PM EDT [facility] Swab Topography unknown / Unknown 11/06/2024 11:29 AM EDT 11/06/2024 12:19 PM EDT Comment:Pre-op diagnosis: Surgical wound infection [T81.49XA] Nathaly Nowak MD LAB MICROBIOLOGY - [facility] Final Result Performing Organization Address [facility] Co de Phone Number [facility] [address] [place] [address] * Fungal Culture, Routine (11/06/2024 11:29 AM EDT) Culture No Fungal Growth at 1 Week 11/13/2024 8:29 AM EDT [facility] Swab Topography unknown / Unknown 11/06/2024 11:29 AM EDT 11/06/2024 12:19 PM EDT Comment:Pre-op diagnosis: Surgical wound infection [T81.49XA] Nathaly Nowak MD LAB MICROBIOLOGY - GENERAL ORDE RABLES Final Result Performing Organization Address City/[facility] Co de Phone Number [facility] [address] [place] [address] * (ABNORMAL) Anaerobic Culture (11/06/2024 11:29 AM EDT) Culture No anaerobes isolated 11/14/2024 1:25 PM EDT [facility] Culture Streptococcus mitis/oralis group(A) 11/14/2024 1:25 PM EDT [facility] Comment: This result was determined by [employer] tof mass spectrometry using the [employer] database and is for research use only. The organism value for this result has been updated. These results have been appended to the previously preliminary verified report. This is a corrected result. Previous organism was Mixed skin clifton on 11/10/2024 at 0718 EDT. Culture Staphylococcus pseudintermedius( A) 11/14/2024 1:25 PM EDT [facility] Comment: This isolate has been identified using the FDA Approved [employer] [place] System This is an appended report. These results have been appended to a previously final verified report. Swab Topography unknown / Unknown 11/06/2024 11:29 AM EDT 11/06/2024 12:19 PM EDT Comment:Pre-op diagnosis: Surgical wound infection [T81.49XA] Narrative [facility] - 11/14/2024 1:25 PM [...] GENERAL ATIYA FRITZ Edited Result - Final [facility] [address] [place] [address] * Routine Culture and Gram Stain (11/06/2024 11:28 AM EDT) Culture No growth at day 4 2024 11:24 AM EDT [facility] Gram Stain Result No organisms seen 11/10/2024 11:24 AM EDT [facility] Gram Stain Result No polymorphonuclear leukocytes seen 11/10/2024 11:24 AM EDT [facility] Swab Topography unknown / Unknown 11/06/2024 11:28 AM EDT 11/06/2024 12:20 PM EDT Comment:Pre-op diagnosis: Surgical wound infection [T81.49XA] us Nathaly Nowak MD LAB MICROBIOLOGY - GENERAL ORDE LAM Final Result Performing Organization Address City/[facility] Co de Phone Number [facility] [address] [place] [address] * Fungal Culture, Routine (11/06/2024 11:28 AM EDT) Culture No Fungal Growth at 1 Week 11/13/2024 8:29 AM EDT [facility] Swab Topography unknown / Unknown 11/06/2024 11:28 AM EDT 11/06/2024 12:20 PM EDT Comment:Pre-op diagnosis: Surgical wound infection [T81.49XA] us Nathaly Nowak MD LAB MICROBIOLOGY - GENERAL ORDE LAM Final Result Performing Organization Address City/[facility] Co de Phone Number [facility] [address] [place] [address] * Anaerobic Culture (11/06/2024 11:28 AM EDT) Culture No growth at day 4 11/13/2024 12:53 PM EDT [facility] Swab Topography unknown / Unknown 11/06/2024 11:28 AM EDT 11/06/2024 12:20 PM EDT Comment:Pre-op diagnosis: Surgical wound infection [T81.49XA] us Nathaly Nowak MD LAB MICROBIOLOGY - GENERAL ORDE RABONEIDA Final Result [facility] [address] [place] [address] * (ABNORMAL) POCT glucose meter (11/06/2024 10:16 AM EDT) [facility] POCT Glucose 194(H) 74 - [...] Comment 11/06/2024 10:18 AM EDT [facility] Respiratory Practitioner ID Elias, Lacy 11/07/19 10:18 AM EDT [facility] Device ID [id number] 11/06/2024 10:18 AM EDT [facility] Specimen Type POC Capillary 11/06/2024 10:18 AM EDT [facility] Blood Capillary blood specimen / Unknown 11/06/2024 10:16 AM EDT 11/06/2024 10:18 AM EDT Nathaly Nowak MD LAB POINT OF CARE TE ST DOCKED DEVICE UNSOLICITED RESULTS Final Result Performing Organization Address [facility] Co de Phone Number [facility] [address] [place] [address] * (ABNORMAL) POCT glucose meter (11/06/2024 5:58 AM EDT) [facility] POCT Glucose 182(H) 74 - 99 [...] Comment 11/06/2024 6:01 AM EDT [facility] Respiratory Practitioner ID Raj Laird 11/07/19 6:01 AM EDT [facility] LAB Device ID [id number] 11/06/2024 6:01 AM EDT [facility] Specimen Type POC Capillary 11/06/2024 6:01 AM EDT [facility] Blood Capillary blood specimen / Unknown 11/06/2024 5:58 AM EDT 11/06/2024 6:01 AM EDT Nathaly Nowak MD LAB POINT OF CARE TE ST DOCKED DEVICE UNSOLICITED RESULTS Final Result Performing Organization Address City/[facility] Co de Phone Number [facility] [address] [place] [address] * (ABNORMAL) POCT glucose meter (11/06/2024 5:36 AM EDT) Pathologist [facility] POCT Glucose 202(H) 74 - 99 [...] 11/06/2024 5:38 AM EDT [facility] Respiratory Practitioner ID Shahid Sanches 11/06/2024 5:38 AM EDT [facility]ALTH[facility]ARE LAB Device ID [id number] 11/06/2024 5:38 AM EDT [facility] Specimen Type POC Capillary 11/06/2024 5:38 AM EDT [facility] Blood Capillary blood specimen / Unknown 11/06/2024 5:36 AM EDT 11/06/2024 5:38 AM EDT us Nathaly Nowak MD LAB POINT OF CARE TE ST DOCKED DEVICE UNSOLICITED RESULTS Final Result Performing Organization Address [facility] [facility] Co de Phone Number [facility]ALTHCARE [facility] [address] [place] [address] * (ABNORMAL) Hemoglobin A1c (11/06/2024 1:07 AM EDT) Hemoglobin A1c 7.6(H) <5.7 % 11/06/2024 11:09 AM EDT [facility] Blood Venous blood specimen / Unknown Venipuncture / Unknown 11/06/2024 1:07 AM EDT 11/06/2024 1:26 AM EDT Narrative [facility] - 11/06/2024 11:09 AM EDT HA1C Interpretive Data: Diagnosis of Diabetes: Diabetic > or = 6.5% Pre-diabetic 5.7 to 6.4% Non-diabetic < or = 5.6% Glycemic Targets for Type I and Type II Diabetics: Non- Adults <7.0% Adults <6.0% Children and Adolescents <7.5% Source: [place] [employer]. Standards of medical care in diabetes,2017. Diabetes Care.2017:40 (suppl 1):S1-S135. us Nathaly Nowak MD LAB BLOOD ORDERABLES Final Resu lt Performing Organization Address City/[facility]/ZIP Co de Phone Number [facility] [address] [place] [address] * Blood Culture (Aerobic/Anaerobet Set) (11/06/2024 1:07 AM EDT) Culture No growth at day 5 11/11/2024 2:49 AM EDT [facility] Blood Structure of right hand / Unknown Venipuncture / Unknown 11/06/2024 1:07 AM EDT 11/06/2024 2:36 AM EDT us Nathaly Nowak MD LAB MICROBIOLOGY - GENERAL ORDE RABLES Final Result [facility] [address] [place] [address] * Blood Culture (Aerobic/Anaerobet Set) (11/06/2024 1:07 AM EDT) Culture No growth at day 5 11/11/2024 3:01 AM EDT [facility] Blood Structure of antecubital vein / Unknown Venipuncture / Unknown 11/06/2024 1:07 AM EDT 11/06/2024 2:36 AM EDT us Nathaly Nowak MD LAB MICROBIOLOGY - GENERAL ORDAna FRITZ Final Result [facility] [address] [place] [address] * (ABNORMAL) Basic metabolic panel (11/06/2024 1:07 AM EDT) Glucose, Plasma 207(H) 74 - 99 mg/dL 11/06/2024 1:41 AM EDT [facility] BUN, Plasma 20 8 - 23 mg/dL 11/06/2024 1:41 AM EDT [facility] Creatinine, Plasma 0.92 0.70 - 1.20 mg/dL 11/06/2024 1:41 AM EDT [facility] BUN/Creatinine Ratio 22 11/06/2024 1:41 AM EDT [facility] Sodium, Plasma 136 136 - 145 mmol/L 11/06/2024 1:41 AM EDT [facility] Potassium, Plasma 4.5 3.6 - 4.9 mmol/L 11/06/2024 1:41 AM EDT [facility] Chloride, Plasma 104 97 - 107 mmol/L 11/06/2024 1:41 AM EDT [facility] CO2, Plasma 22 22 - 29 mmol/L 11/06/2024 1:41 AM EDT [facility] Anion Gap 10 6 - 16 mmol/L 11/06/2024 1:41 AM EDT [facility] Total Calcium, Plasma 9.0 8.9 - 10.2 mg/dL 11/06/2024 1:41 AM EDT [facility] eGFRcr 92.3 mL/min/1.7 3m*2 11/06/2024 1:41 AM EDT [facility] Comment:Reported eGFRcr in m L/min/1.73m2 is based the CKD-EPI 2020 equation that does not use a race coefficient. Blood Venous blood specimen / Unknown Venipuncture / Unknown 11/06/2024 1:07 AM EDT 11/06/2024 1:12 AM EDT us Nathaly Nowak MD LAB BLOOD ORDERABLES Final Resu lt Performing Organization Address [facility]/ZIP Co de Phone Number [facility] [address] [place] [address] * Phosphorus (11/06/2024 1:07 AM EDT) Phosphorus, Plasma 3.2 2.5 - 4.5 mg/dL 11/06/2024 1:41 AM EDT [facility] Blood Venous blood specimen / Unknown Venipuncture / Unknown 11/06/2024 1:07 AM EDT 11/06/2024 1:12 AM EDT Nathaly Nowak MD LAB BLOOD ORDERABLES Final Resu lt Performing Organization Address [facility] Co de Phone Number [facility] [address] [place] [address] * Magnesium (11/06/2024 1:07 AM EDT) Magnesium, Plasma 2.2 1.9 - 2.4 mg/dL 11/06/2024 1:41 AM EDT [facility] Blood Venous blood specimen / Unknown Venipuncture / Unknown 11/06/2024 1:07 AM EDT 11/06/2024 1:12 AM EDT Nathaly Nowak MD LAB BLOOD ORDERABLES Final Resu lt Performing Organization Address City/[facility]/ZIP Co de Phone Number [facility] [address] [place] [address] * (ABNORMAL) CBC (11/06/2024 1:07 AM EDT) WBC Count 9.70 3.70 - 10.30 10*3/uL LAB HEMATOLOGY METHOD 11/06/2024 1:19 AM EDT [facility] RBC Count 2.89(L) 4.60 - 6.10 10*6/uL LAB HEMATOLOGY METHOD 11/06/2024 1:19 AM EDT [facility] HGB 8.8(L) 13.7 - 17.5 g/dL LAB HEMATOLOGY METHOD 11/06/2024 1:19 AM EDT [facility] HCT 26.2(L) 40.0 - 51.0 % LAB HEMATOLOGY METHOD 11/06/2024 1:19 AM EDT [facility] Platelet Count 542(H) 155 - 369 10*3/uL LAB HEMATOLOGY METHOD 11/06/2024 1:19 AM EDT [facility] MCV 91 79 - 98 fL LAB HEMATOLOGY METHOD 11/06/2024 1:19 AM EDT [facility] MCH 30.4 26.0 - 32.0 pg LAB HEMATOLOGY METHOD 11/06/2024 1:19 AM EDT [facility] MCHC 33.6 30.7 - 35.5 g/dL LAB HEMATOLOGY METHOD 11/06/2024 1:19 AM EDT [facility] RDW 13.2 11.5 - 14.5 % LAB HEMATOLOGY METHOD 11/06/2024 1:19 AM EDT [facility] MPV 8.7(L) 8.8 - 12.5 fL LAB HEMATOLOGY METHOD 11/06/2024 1:19 AM EDT [facility] nRBC 0.0 <=0.0 per 100 WBCs LAB HEMATOLOGY METHOD 11/06/2024 1:19 AM EDT [facility] Blood Venous blood specimen / Unknown Venipuncture / Unknown 11/06/2024 1:07 AM EDT 11/06/2024 1:12 AM EDT us Nathaly Nowak MD LAB BLOOD ORDERABLES Final Resu lt [facility] [address] [place] [address] * [facility] (11/06/2024 12:58 AM EDT) Extra Hold for add-ons 11/06/2024 3:21 AM EDT [facility] Comment:Auto resulted. Blood Venous blood specimen / Unknown 11/06/2024 12:58 AM EDT 11/06/2024 1:13 AM EDT us Nathaly Nowak MD LAB BLOOD ORDERABLES Final Resu lt Performing Organization Address [facility]/ZIP Co de Phone Number [facility] [address] [place] [address] * Gold Top (11/06/2024 12:58 AM EDT) Extra Hold for add-ons 11/06/2024 3:21 AM EDT [facility] Comment:Auto resulted. Blood Venous blood specimen / Unknown 11/06/2024 12:58 AM EDT 11/06/2024 1:13 AM EDT us Nathaly Nowak MD LAB BLOOD ORDERABLES Final Resu lt Performing Organization Address [facility] Co de Phone Number [facility] [address] [place] [address] * Light Green Top (11/06/2024 12:58 AM EDT) Extra Hold for add-ons 11/06/2024 3:21 AM EDT [facility] Comment:Auto resulted. Blood Venous blood specimen / Unknown 11/06/2024 12:58 AM EDT 11/06/2024 1:13 AM EDT us Nathaly Nowak MD LAB BLOOD ORDERABLES Final Resu lt Performing Organization Address [facility] Co de Phone Number [facility] [address] [place] [address] * Light Blue Top (11/06/2024 12:58 AM EDT) Extra Hold for add-ons 11/06/2024 3:21 AM EDT [facility] Comment:Auto resulted. Blood Venous blood specimen / Unknown 11/06/2024 12:58 AM EDT 11/06/2024 1:13 AM EDT us Nathaly Nowak MD LAB BLOOD ORDERABLES Final Resu lt Performing Organization Address [facility]/ZIP Co de Phone Number [facility] [address] [place] [address] * Light Blue Top (11/06/2024 12:58 AM EDT) Pathologist [facility] Extra Hold for add-ons 11/06/2024 3:21 AM EDT [facility] Comment:Auto resulted. Blood Venous blood specimen / Unknown 11/06/2024 12:58 AM EDT 11/06/2024 1:13 AM EDT Nathaly Nowak MD LAB BLOOD ORDERABLES Final Resu lt Performing Organization Address City/[facility]/ZIP Co de Phone Number [facility] [address] [place] [address] * (ABNORMAL) POCT glucose meter (11/06/2024 12:45 AM EDT) [facility] POCT Glucose 204(H) 74 - 99 [...] Comment 11/06/2024 12:48 AM EDT [facility] Respiratory Practitioner ID Raj Laird 11/07/19 25 12:48 AM EDT [facility]ALTH[facility]ARE [facility] Device ID [id number] 11/06/2024 12:48 AM EDT [facility] Specimen Type POC Capillary 11/06/2024 12:48 AM EDT [facility] Blood Capillary blood specimen / Unknown 11/06/2024 12:45 AM EDT 11/06/2024 12:48 AM EDT us Nathaly Nowak MD LAB POINT OF CARE TE ST DOCKED DEVICE UNSOLICITED RESULTS Final Result Performing Organization Address City/[facility] Co de Phone Number [facility] [address] [place] [address] documented in this encounter Visit Diagnoses Diagnosis [...] needed, Starting on Mon11/06/24 at 0031, Until [facility] 11/14/24 at 1804, Routine, line care sodium [...] needed, Starting on Mon11/06/24 at 0753, Until [facility] 11/14/24 at 1804, Routine, On Unit - Preprocedure, line care sodium chloride 0.9 % flush 10 mL 10 mL, Intravenous, Every 12 hours, First dose on [facility] 11/09/24 at 1515, Until Discontinued, [...] documented as of this encounter Care Teams Ballroom Dancer Relationship Specialty Start Date End Date Asad Victor MD [address] [place] [address] PCP - General 10/07/22 documented as of this encounter
--- OUTSIDE RECORDS SUMMARY | 2024-11-06 10:08 | XMS_ITS | Encounter Summary ---
Author Organization Healthcare Address [address] [place] [address] Care Team Providers Care Landscaping Crew Leader Name Role Phone Asad Victor MD Primary Care Provider + [phone] Reason for Visit * Reason Comments Post-op Problem Wound Check * Auth/Cert (Routine) Specialty Diagnoses / Procedures Referred By Contac t Referred To Contact Diagnoses Wound infection Post-op Vasc Sx wounds - sx on 10/17 at Nathaly Nowak MD [address] [address] Phone: tel: fax: [facility] Emergency Department [address] [place] [address] Phone: tel: Referral ID Status Reason Start Date Expiration Date Visits Re quested Visits Authorized [id number] 1 1 Encounter Details Date Type Department Care Team (Late st Contact Info) Description 11/06/2024 10:08 AM EDT - 11/06/2024 11:38 AM EDT Surgery [facility] OPERATING ROOM [address] [place] [address] Nathaly Nowak MD [id number] [place] [address] Left groin exploration and washout, [...] drink first t dino in the morning (EYE-DIRECTOR OF INSTRUMENTAL MUSIC) to steady your nerves or to get rid of a hangover? 0 10/18/2021 CAGE Questionnaire Score 0 022 Utilities Answer Date Recorded In the past 12 months has [employer], gas, oil, or water Discourse threatened to shut off services in your [...] Carmona with any questions or concerns at [phone]. It is important that you get your [...] Note Bev Borja 64 y.o. male CSN: [id number] Admission: 11/05/2024 9:45 PM Primary Problem: Wound infection Primary Sports Nutritionist: Primary Caregiver: Self Assistance Available at Discharge: [...] previous admission in last 30 days Follow-up: [facility] [address] [facility] [address] Go to Infusion Clinic. Please arrive at [address] [facility] [address] Go to Wound care clinic. First appointment is 1:10 pm. Please call [phone] with scheduling concerns. Discharge Transportation: Transportation Anticipated: medical transport Transportation Home at Discharge: Medical Transport Follow Up Transport: Transportation Needed to Follow up Appoinments: Medical Transport Additional Comments: Patient discharging home. No other SW needs identified. Mariia Monterroso MEDICAL OFFICE SUPERVISOR * Discharge Summary - Melecio Echevarria DO - 11/14/2024 12:46 PM EDT Hospitalization Admit Date/Time: 11/05/2024 9:45 PM Admitting Attending: Nathaly Nowak Discharge Date: 11/14/2024 Discharge Attending Physician: Nathaly Nowak MD PCP name and Address: Asad Victor MD (Inactive) [address] [place] [address] / [address] [address] Referring provider name and address: Wade Cowart, DO [address] [place] [address] Chief Concern, Brief History of Present Illness, and Hospital Course Mr. Borja is a 64 y/o male that presented to [facility] on 11/06/2024 for surgical wound infection [...] Your Medications [facility] - GLENDA Solorzano - [address], [place] [address] ertapenem injection micafungin injection Discharge Diagnosis Medical [...] Time Provider Department Center 11/26/2024 2:00 PM [facility] 11/26/2024 2:30 PM [facility] 11/26/2024 3:20 PM [facility]ab[facility] Schuster [facility] 11/29/2024 2:30 PM Oscar Appiah MD [id number] [place] Test Results Pending At Discharge Pending Labs [...] as documented. * Hospital Course - Melecio Echevarira DO - 11/14/2024 10:25 AM EDT Mr. Borja is a 64 y/o male that presented to [facility] on 11/06/2024 for surgical wound infection [...] portions of the procedure(s) and immediately available [facility] services the entire duration. See resident note for details. * Progress Notes - Mariia Monterroso - 11/13/2024 1:57 PM EDT Case Management Adult Progress Note Bev Borja 64 y.o. male CSN: [id number] Admission: 11/05/2024 9:45 PM Primary Problem: Wound infection Wound vac to be delivered today by at bedside. SW sent referral/orders to [facility] wound care center (fax [phone]) and infusion clinic (fax [phone]). Plan to discharge tomorrow. SW will continue to follow. Mariia Monterroso MEDICAL OFFICE SUPERVISOR * Progress Notes - Bianca Knight PharmD - 11/13/2024 12:55 PM EDT Vancomycin therapy has been stopped per ID recommendation. Pharmacist will sign off from dosing and monitoring vancomycin. Please re- consult a pharmacist if more vancomycin is indicated. Bianca Knight PharmD, [facility] * Progress Notes - Ailin [...] Lumen PICC Antimicrobial Regimen: IV Ertapenem 1g [id number] start date:11/06/2024 Projected End date:12/18/2024 IV Micafungin 150mg [id number] Start date: 11/12/2024 Projected End Date: 12/24/2024 [...] OPAT Team Attn: Dr Kraus Fax #: [phone] Appointments: (Dr Appiah 08/02/2024 at 2.30pm) at: [facility]: [address] [place] [address] (Select Option 3 for IV Antibiotic / PICC line related issues) For questions regarding OPAT prior to discharge, reach out to the OPAT team via [employer] Secure Chat (Group: OPAT Referral Team). For all questions regarding OPAT after discharge should be directed to the OPAT Team at (Select Option 3 for IV Antibiotics/PICC Issues) between 8am-5pm. After 5 pm, or during weekends/ holidays, please call the paging pulp refiner operator at to reach the on-call ID [...] not included. [facility] Department of Surgery Division of Vascular Surgery Surgery Progress Note 11/13/24 Bev Borja Subjective Subjective: HPI 64yoM PMHx COPD, T2DM, HLD, HTN, RLS, CAD s/p PCI (on Xarelto) s/p pacemaker c/b left SANDIP pseudoaneurysm s/p thrombin injection 09/21/24, CLI s/p left femoral endarterectomy with EIA/CONCRETE PAVING MACHINE OPERATOR stenting 10/17/24, who presented to [facility] [...] 09/21/24, CLI s/p left femoral endarterectomy with EIA/CONCRETE PAVING MACHINE OPERATOR stenting 10/17/24, who presented to [facility] [...] the findings. Cardiac Device Check - PRE-OR [facility] EP-Device Clinic: Pre-operative CIED Report Assessment and Sara-Procedural Reommendations: Name: Bev Borja Date: 10/17/2024 : 1960 Age: 64 y.o. 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 Lead integrity test [...] recommendations. Supporting reports can be found in Wishberg media file. Micro: Susceptibility data from last [...] Units Date/Time Tissue Culture and Gram Stain [[id number]] (Abnormal) (Susceptibility) Collected: 11/06/24 1134 Order Status: Completed Specimen: Tissue from Other (specify site) Updated: 11/12/24 1334 Culture Moderate Growth 2+ Enterobacter cloacae complex Comment: This isolate has been identified using the FDA Approved Loomiayper CA System The organism value for this result has been updated. These results have been appended to the previously preliminary verified report. Edited result: Previously reported as Gram Negative Jesus on 11/07/2024 at 1434 EDT. 2+ Streptococcus mitis/oralis group Comment: This isolate has been identified using the FDA Approved MALDI WalkMeyper CA System The organism value for this result has been updated. These results have been appended to the previously preliminary verified report. 2+ Pasteurella stomatis Comment: This result was determined by MALDI tof mass spectrometry using the PureBrands database and is for research use only. [...] stewardship team. Comprehensive GI Panel by PCR [[id number]] (Normal) Collected: 11/12/24 0950 Order Status: Completed [...] if clinically indicated. Clostridiodes (Clostridium) difficile PCR [[id number]] (Normal) Collected: 11/12/24 0950 Order Status: Completed [...] high complexity clinical laboratory testing. 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 These results have been appended to the previously preliminary verified report. Edited result: Previously reported as Yeast on 11/11/2024 at 1317 EDT. ISIDRO No fungal elements seen Additional Susceptibilities and/or Identification [[id number]] Collected: 11/11/24 1240 Order Status: Completed Specimen: Tissue from Wound (specify site): Additional Susceptibilities and/or Identification [[id number]] Collected: 11/11/24 1238 Order Status: Completed Specimen: Tissue from Wound (specify site): Additional Susceptibilities and/or Identification [[id number]] Collected: 11/11/24 1237 Order Status: Completed Specimen: Tissue from Wound (specify site): AFB Culture, Non Respiratory Source and Acid Fast Stain [[id number]] Collected: 11/06/24 1134 Order Status: Completed Specimen: Tissue from Other (specify site) Updated: 11/11/24 0938 AFB Culture No Mycobacterial Growth <1 Week Acid Fast Stain No acid fast bacilli seen Blood Culture (Aerobic/Anaerobet Set) [[id number]] Collected: 11/06/24106 Order Status: Completed Specimen: Blood from AC, Left Updated: 11/11/24 0301 Culture No growth at day 5 Blood Culture (Aerobic/Anaerobet Set) [[id number]] Collected: 11/06/24106 Order Status: Completed Specimen: Blood [...] OSH. [facility] [...] a facility, plan for [facility] daily IV abx. Plan for ID outpatient follow up, 11/29 at 2:[address] Appiha.Pt will need close follow up with vascular [...] mg 1,000 mg Oral q6h [facility] Anthony Reyes MD 1,000 mg at 11/12/24 [...] Prevent or Manage Pain Flowsheets (Taken 11/11/2024 3566 by Jonathan Vale RN) Sensory Stimulation Regulation: care clustered lighting decreased quiet environment promoted Medication Review/Management: medications reviewed * Consults - Anabel Ovalle RD - 11/12/2024 9:59 AM EDT Adult Nutrition Evaluation Note Bev Borja 64 y.o. male CSN: [id number] Room/Bed 682/682B Nutrition evaluation type: assessment Reason for evaluation: LOS Hospital course: 64 y.o. male with PMHx significant for COPD, CAD s/p PCI (on Xarelto) s/p pacemaker c/b left SANDIP pseudoaneurysm s/p thrombin injection 09/21/24, chronic limb ischemia s/p left femoralendarterectomy with external iliac/common femoral artery stenting 10/17/24, T2DM, HLD, HTN, RLS who presented to the [facility] on 11/05/2024 with problems with [...] (Room air) O2 Delivery Method: Face tent Bishop Coma Scale Score: 15 Loi Scale Score: [...] (194 lb 3.6 oz) BMI (Calculated): 30.41 Centre Body Weight (kg): 67.3 Percent Centre Body Weight: 131 Adjusted Body Weight (kg): [...] oz) Estimated Needs: Kcal/ K-30 Kcal Provided: 8840-5009 Kcal Needs Based On: Adjusted weight Gm Protein/ Kg : 1.2-1.5 Protein Provided: 87-108 Protein Needs Based On: Adjusted weight Metabolic Cart Study Results: Current Nutrition Intake: Diet Order: Adult Diet Diet Texture: Regular Adult Carbohydrate Restriction: Consistent CHO 1 (6571-8893 Jatinder, 65 g/meal) Percent Meals Eaten (%): [...] ENDARTERECTOMY N/A 2017 Endarterectomy Carotid Artery from HELIX BIOMEDIX CORONARY ANGIOPLASTY Left Coronary Angiography With Concomitant Left Heart Catheterization from HELIX BIOMEDIX CORONARY ARTERY BYPASS GRAFT N/A 2018 3V ELBOW SURGERY Right ENDARTERECTOMY Left 10/17/2024 common/SFA/Profunda thromboendarterectomy, EIA/CONCRETE PAVING MACHINE OPERATOR stent HERNIA REPAIR KNEE ARTHROSCOPY Left VASCULAR SURGERY Left 09/21/2024 CONCRETE PAVING MACHINE OPERATOR pseudoaneurym injection [3] Social History [...] from the original note were not included. [facility] Department of Surgery Division of Vascular Surgery Surgery Progress Note 11/12/24 Bev Perez Cristoferkeo Subjective Subjective: HPI 64yoM PMHx COPD, T2DM, HLD, HTN, RLS, CAD s/p PCI (on Xarelto) s/p pacemaker c/b left SANDIP pseudoaneurysm s/p thrombin injection 09/21/24, CLI s/p left femoral endarterectomy with EIA/CONCRETE PAVING MACHINE OPERATOR stenting 10/17/24, who presented to [facility] [...] 09/21/24, CLI s/p left femoral endarterectomy with EIA/CONCRETE PAVING MACHINE OPERATOR stenting 10/17/24, who presented to [facility] [...] the findings. Cardiac Device Check - [facility] EP-[facility] Clinic: Pre-operative CIED Report Assessment and Sara-Procedural Reommendations: Name: Bev Borja Date: 10/17/2024 : 1960 Age: 64 y.o. 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 Lead integrity test [...] recommendations. Supporting reports can be found in Wishberg media file. Micro: Susceptibility data from last [...] Units Date/Time Tissue Culture and Gram Stain [[id number]] (Abnormal) (Susceptibility) Collected: 11/06/24 1134 Order Status: Completed Specimen: Tissue from Other (specify site) Updated: 11/12/24 1334 Culture Moderate Growth 2+ Enterobacter cloacae complex Comment: This isolate has been identified using the FDA Approved Libbooer CA System The organism value for this result has been updated. These results have been appended to the previously preliminary verified report. Edited result: Previously reported as Gram Negative Jesus on 11/07/2024 at 1434 EDT. 2+ Streptococcus mitis/oralis group Comment: This isolate has been identified using the FDA Approved Libbooer CA System The organism value for this result has been updated. These results have been appended to the previously preliminary verified report. 2+ Pasteurella stomatis Comment: This result was determined by MALDI tof mass spectrometry using the [employer]Br[employer] database and is for research use only. [...] stewardship team. Comprehensive GI Panel by PCR [[id number]] (Normal) Collected: 11/12/24 0950 Order Status: Completed [...] if clinically indicated. Clostridiodes (Clostridium) difficile PCR [[id number]] (Normal) Collected: 11/12/24 0950 Order Status: Completed [...] high complexity clinical laboratory testing. Anaerobic Culture [[id number]] Collected: 11/06/24 1128 Order Status: Completed Specimen: Swab from Other (specify site) Updated: 11/12/24 1118 Culture No growth at day 4 Fungal Culture, Tissue and ISIDRO [[id number]] (Abnormal) Collected: 11/06/24 1134 Order Status: Completed Specimen: Tissue from Other (specify site) Updated: 11/12/24 1033 Culture Reading Mycological 4 Weeks Rare Placida Sana parapsilosis Comment: This isolate has been identified using the FDA Approved Loomiayper CA System The organism value for this result has been updated. These results have been appended to the previously preliminary verified report. Edited result: Previously reported as Yeast on 11/11/2024 at 1317 EDT. ISIDRO No fungal elements seen Additional Susceptibilities and/or Identification [[id number]] Collected: 11/11/24 1240 Order Status: Completed Specimen: Tissue from Wound (specify site): Additional Susceptibilities and/or Identification [[id number]] Collected: 11/11/24 1238 Order Status: Completed Specimen: Tissue from Wound (specify site): Additional Susceptibilities and/or Identification [[id number]] Collected: 11/11/24 1237 Order Status: Completed Specimen: Tissue from Wound (specify site): AFB Culture, Non Respiratory Source and Acid Fast Stain [[id number]] Collected: 11/06/24 1134 Order Status: Completed Specimen: Tissue from Other (specify site) Updated: 11/11/24 0938 AFB Culture No Mycobacterial Growth <1 Week Acid Fast Stain No acid fast bacilli seen Blood Culture (Aerobic/Anaerobet Set) [[id number]] Collected: 11/06/24106 Order Status: Completed Specimen: Blood from AC, Left Updated: 11/11/24 0301 Culture No growth at day 5 Blood Culture (Aerobic/Anaerobet Set) [[id number]] Collected: 11/06/24106 Order Status: Completed Specimen: Blood [...] OSH. On 11/06, pt went to the [facility] vascular surgery for left groin exploration and [...] mg 1,000 mg Oral q6h [facility] Anthony Reyes MD 1,000 mg at 11/12/24 1356 aspirin chewable tablet 81 mg 81 mg Oral Daily Reid Dainels MD 81 mg at 11/12/24 0938 cefepime (Maxipime) 2 g in sodium chloride 0.9% 100 mL IVPB (vial adapter required) 2 g [id number] Reid Daniels MD 36.7 mL/hr at 11/12/24 [...] PM Anthony Reyes MD 0.4 mg at [id number] Vancomycin HCl in NaCl (Vancocin) IVPB 1,000 [...] send him home on micafungin as Rare Placida Sana parapsilosis grew and we do not [...] portions of the procedure(s) and immediately available [facility] the entire duration. See resident note for details. * Progress Notes - Mariia Monterroso - 11/11/2024 1:10 PM EDT Case Management Adult Progress Note Bev Borja 64 y.o. male CSN: [id number] Admission: 11/05/2024 9:45 PM Primary Problem: Wound infection Patient refusing inpatient placement for IV abx. [facility] infusion clinic can provide treatment. Face sheet, IV abx orders, and order for PICC care/labs/dressing changes need to be faxed to [phone]. Voicemail left with wound care clinic. Wound vac approved per , delivery pending. Crysll continue to follow. Mariia Monterroso MEDICAL OFFICE SUPERVISOR * Progress Notes - Dotty Sethi [...] the findings. Cardiac Device Check - PRE[facility] EP-[facility]: Pre-operative CIED Report Assessment and Sara-Procedural Reommendations: Name: Bev Borja Date: 10/17/2024 : 1960 Age: 64 y.o. 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 Lead integrity test [...] recommendations. Supporting reports can be found in Wishberg media file. Micro: Susceptibility data from last [...] Non Respiratory Source and Acid Fast Stain [[id number]] Collected: 11/06/24 1134 Order Status: Completed Specimen: Tissue from Other (specify site) Updated: 11/11/24 0938 AFB Culture No Mycobacterial Growth <1 Week Acid Fast Stain No acid fast bacilli seen Blood Culture (Aerobic/Anaerobet Set) [[id number]] Collected: 11/06/24106 Order Status: Completed Specimen: Blood from AC, Left Updated: 11/11/24 0301 Culture No growth at day 5 Blood Culture (Aerobic/Anaerobet Set) [[id number]] Collected: 11/06/24 010 Order Status: Completed Specimen: Blood from Hand, Right Updated: 11/11/24 0249 Culture No growth at day 5 Anaerobic Culture [[id number]] Collected: 11/06/24 1128 Order Status: Completed Specimen: Swab from Other (specify site) Updated: 11/10/24 1441 Culture No growth at day 4 Routine Culture and Gram Stain [[id number]] Collected: 11/06/24 1128 Order Status: Completed Specimen: Swab from Other (specify site) Updated: 11/10/24 1124 Culture No growth at day 4 Gram Stain Result No organisms seen No polymorphonuclear leukocytes seen Anaerobic Culture [[id number]] (Abnormal) Collected: 11/06/24 112 Order Status: Completed Specimen: Swab from Other (specify site) Updated: 11/10/24 0718 Culture No anaerobes isolated Mixed skin clifton Comment: The organism value for this result has been updated. These results have been appended to the previously preliminary verified report. Narrative: Mixed Skin Clif[place] includes Streptococcus mitis/oralis group and Staphylococcus Pseudintermedius Anaerobic Culture [[id number]] (Abnormal) Collected: 11/06/24 1134 Order Status: Completed [...] OSH. [facility] [...] mL IVPB (vial adapter required) 2 g [id number] Reid Daniels MD 36.7 mL/hr at 11/11/24 [...] PM Anthony Reyes MD 0.4 mg at [id number] Vancomycin HCl in NaCl (Vancocin) IVPB 1,000 [...] from the original note were not included. [facility] Department of Surgery Division of Vascular Surgery Surgery Progress Note 11/11/24 Bev Borja Subjective Subjective: HPI 64yoM PMHx COPD, T2DM, HLD, HTN, RLS, CAD s/p PCI (on Xarelto) s/p pacemaker c/b left SANDIP pseudoaneurysm s/p thrombin injection 09/21/24, CLI s/p left femoral endarterectomy with EIA/CONCRETE PAVING MACHINE OPERATOR stenting 10/17/24, who [facility] [...] 09/21/24, CLI s/p left femoral endarterectomy with EIA/CONCRETE PAVING MACHINE OPERATOR stenting 10/17/24, who presented [facility] [...] Edited by: Reid Daniels MD at 11/11/2024 0884 Dispo: Continue Current Level of Care Reid [...] to follow, Submitted by: Kalpesh Lord PharmD, [facility] 11/10/2024 12:45 PM * Care [...] 09/21/24, CLI s/p left femoral endarterectomy with EIA/CONCRETE PAVING MACHINE OPERATOR stenting 10/17/24, who [facility] [...] 09/21/24, CLI s/p left femoral endarterectomy with EIA/CONCRETE PAVING MACHINE OPERATOR stenting 10/17/24, who [facility] [...] Barraza RN Authorized by: Nathaly Nowak MD [place] Protocol: Verbal consent obtained?: Yes Written consent [...] selection rationale: Left pacemaker Catheter Lot #: [id number] Catheter property man: [email or web address] Catheter placed: Single lumen Catheter size: 4 [...] 09/21/24, CLI s/p left femoral endarterectomy with EIA/CONCRETE PAVING MACHINE OPERATOR stenting 10/17/24, who [facility] [...] reviewed. Vital signs reviewed. Labs reviewed. Assessment/Plan Bve Borja is a 64yo M PMHx COPD, T2DM, HLD, HTN, RLS, CAD s/p PCI (on Xarelto) s/p pacemaker c/b left SANDIP pseudoaneurysm s/p thrombin injection 09/21/24, CLI s/p left femoral endarterectomy with EIA/CONCRETE PAVING MACHINE OPERATOR stenting 10/17/24, who [facility] [...] Level of Care [place] M4 student [facility] Cosigned by Nathaly Nowak MD at 11/11/2024 [...] Mobility: Ambulatory- community (was utilizing scooter at [facility] since discharge) Mobility [place]: Independent gait with device History of Falls: [...] Mobility Bed Mobility Exam: Scooting/Bridging Level of [place]: Modified independence Bed Mobility Exam: Supine to Sit Level of [place]: Modified [place] Transfers Transfer Exam: Sit to stand Level of [place]: Modified independence Assistive Device: Rollator Transfer Exam: Stand to Sit Level of [place]: Modified independence Assistive Device: Rollator Ambulation Device: [...] maintain/improve functional mobility and endurance. Standardized Assessments [facility] 6-Clicks Mobility Assessment Difficulty patient has [...] steps with a railing?: A little [facility] 6-Clicks Mobility Assessment Total : 22 [...] Mobility Ambulatory- community (was utilizing scooter at [facility] since discharge) Mobility [place] Independent gait with device History of Falls [...] distal to knee) BED MOBILITY Level of [place] Physical/Non-physical Assist Adaptive Equipment Utilized Scooting/ Bridging Modified independence Supine to Sit Modified [place] TRANSFERS Level of [place] Physical/Non-physical Assist Adaptive Equipment Utilized Sit to Stand Modified independence Rollator Stand to sit Modified independence Rollator Toilet Transfer Modified independence Grab bar FUNCTIONAL MOBILITY Ambulation Modified independent 200ft x2 with seated rest break between bouts; RPE 5-7/10. Cues forsafety with rollator brakes. Rollator Comments BALANCE Postural Appearance Posture: Within Functional Limits Level of [place] Balance Support Static Sit Independent Feet supported Dynamic Sit Independent Feet supported Static Stand Independent Right upper extremity support, Left upper extremity support (via rollator) Dynamic Stand Independent Right upper extremity support, Left upper extremity support (via rollator) STANDARDIZED ASSESSMENTS [facility] 6-Click Daily Activities Help from Other: Don/Doff Regular Lower Body Clothings: None Help From Other: Bathing: None Help From Other: Toileting: None Help From Other: Don/Doff Upper Body Clothings: None Help From Other: Grooming: None Help From Other: Eating Meals: None [facility] 6 Click - Daily Activities Score: 24 [...] needed areas of treatment space. Level of [place] Interventions Grooming Modified independent Standing sinkside Pt [...] Note Bev Borja 64 y.o. male CSN: [id number] Admission: 11/05/2024 9:45 PM Primary Problem: Wound [...] follow and assist as needed. Mariia Monterroso MEDICAL OFFICE SUPERVISOR * Progress Notes - Bianca Knight [...] to follow, Submitted by: Bianca Knight, ElizabethD, [facility] 11/08/2024 11:15 AM * Progress Notes - Melecio Echevarria DO - 11/08/2024 7:18 AM EDT Images from the original note were not included. [facility] Department of Surgery Division of Vascular Surgery Surgery Progress Note 11/08/24 Bev Borja Subjective Subjective: HPI 64yoM PMHx COPD, T2DM, HLD, HTN, RLS, CAD s/p PCI (on Xarelto) s/p pacemaker c/b left SANDIP pseudoaneurysm s/p thrombin injection 09/21/24, CLI s/p left femoral endarterectomy with EIA/CONCRETE PAVING MACHINE OPERATOR stenting 10/17/24, who presented [facility] [...] completed 10/19 Pseudoaneurysm of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 3.9 3.6 - 4.9 mmol/L 11/13/2024 7:[address] [facility] Chloride, Plasma 107 97 - 107 mmol/L 11/13/2024 7:[address] [facility] CO2, Plasma 21(L) 22 - 29 mmol/L 11/13/2024 7:[address] [facility] Anion Gap 7 6 - 16 mmol/L 11/13/2024 7:[address] [facility] Total Calcium, Plasma 8.1(L) 8.9 - 10.2 mg/dL 11/13/2024 7:[address] [facility] eGFRcr 103.2 mL/min/1.7 3m*2 11/13/2024 7:[address] [facility] Comment:Reported eGFRcr in m L/min/1.73m2 is based the CKD-EPI 2020 equation that does not use a race coefficient. Blood Venous blood specimen / Unknown Venipuncture / Unknown 11/13/2024 6:37 AM EDT 11/13/2024 6:44 AM EDT us Nathaly Nowak MD LAB BLOOD ORDERABLES Final Resu lt [facility] [address] [place] [address] * (ABNORMAL) POCT glucose meter (11/12/2024 8:27 [...] 11/12/2024 8:29 PM EDT [facility] Car Salesman ID Nelda Gerber 11/13/19 8:29 PM EDT [facility] Device ID [id number] 11/12/2024 8:29 PM EDT [facility] Specimen Type POC Capillary 11/12/2024 8:29 PM EDT [facility] Blood Capillary blood specimen / Unknown 11/12/2024 8:27 PM EDT 11/12/2024 8:29 PM EDT Nathaly Nowak MD LAB POINT OF CARE TE ST DOCKED DEVICE UNSOLICITED RESULTS Final Result [facility] [address] [place] [address] * (ABNORMAL) POCT glucose meter (11/12/2024 5:08 PM EDT) [facility] POCT Glucose 157(H) 74 - 99 [...] 11/12/2024 5:10 PM EDT [facility] Car Salesman ID Braden Wade Collado 5:10 PM EDT [facility] Device ID [id number] 11/12/2024 5:10 PM EDT [facility] Specimen Type POC Capillary 11/12/2024 5:10 PM EDT [facility] Blood Capillary blood specimen / Unknown 11/12/2024 5:08 PM EDT 11/12/2024 5:10 PM EDT us Nathaly Nowak MD LAB POINT OF CARE TE ST DOCKED DEVICE UNSOLICITED RESULTS Final Result Performing Organization Address City/[facility] Co de Phone Number [facility] [address] [place] [address] * (ABNORMAL) POCT glucose meter (11/12/2024 12:36 [...] Comment 11/12/2024 12:38 PM EDT [facility] Car Salesman ID Wade Feliciano Tobias 12:38 PM EDT [facility] Device ID [id number] 11/12/2024 12:38 PM EDT [facility] Specimen Type POC Capillary 11/12/2024 12:38 PM EDT [facility] Blood Capillary blood specimen / Unknown 11/12/2024 12:36 PM EDT 11/12/2024 12:38 PM EDT us Nathaly Nowak MD LAB POINT OF CARE TE ST DOCKED DEVICE UNSOLICITED RESULTS Final Result Performing Organization Address City/[facility]/ZIP Co de Phone Number [facility] [address] [place] [address] * Clostridiodes (Clostridium) difficile PCR (11/12/2024 9:50 AM EDT) [facility] C difficile PCR toxin B gene DNA Result Not Detected Not Detected 11/12/2024 11:[address] [facility] Stool Rectum structure / Unknown Non-blood Collection / Unknown 11/12/2024 9:50 AM EDT 11/12/2024 10:[address] [facility] - 11/12/2024 11:54 AM EDT [...] MICROBIOLOGY - GENERAL ORDE LAM Final Result [facility] [address] [place] [address] * Comprehensive GI Panel by PCR (11/12/2024 9:50 AM EDT) Campylobacter PCR Result Not Detected Not Detected 11/12/2024 2:[address] [facility] Plesiomonas shigelloides PCR Result Not Detected Not Detected 11/12/2024 2:[address] [facility] Salmonella PCR Result Not Detected Not Detected 11/12/2024 2:[address] [facility] Vibrio species PCR Result Not Detected Not Detected 11/12/2024 2:[address] [facility] Vibrio cholerae PCR Result Not Detected Not Detected 11/12/2024 2:[address] [facility] Yersinia enterocolitica PCR Result Not Detected Not Detected 11/12/2024 2:[address] [facility] Enteroaggregative E. coli (EAEC) PCR Result Not Detected Not Detected 11/12/2024 2:[address] [facility] Enteropathogenic E. coli (EPEC) PCR Result Not Detected Not Detected 11/12/2024 2:[address] [facility] Enterotoxigenic E. coli (ETEC) lt/st PCR Result Not Detected Not Detected 11/12/2024 2:[address] [facility] Shiga-like Toxin-Producing E.coli (STEC) stx1/stx2 PCR Resu Not Detected Not Detected 11/12/2024 2:[address] [facility] E coli 0157 PCR Result Not Detected Not Detected 11/12/2024 2:[address] [facility] Shigella/Enteroinvas tam E. coli (EIEC) PCR Result Not Detected Not Detected 11/12/2024 2:[address] [facility] Cryptosporidium PCR Result Not Detected Not Detected 11/12/2024 2:[address] [facility] Cyclospora cayetanensis PCR Result Not Detected Not Detected 11/12/2024 2:[address] [facility] Entamoeba histolytica PCR Result Not Detected Not Detected 11/12/2024 2:[address] [facility] Giardia duodenalis (aka Giardia lamblia) PCR Result Not Detected Not Detected 11/12/2024 2:[address] [facility] Adenovirus F 40/41 PCR Result Not Detected Not Detected 11/12/2024 2:[address] [facility] Astrovirus PCR Result Not Detected Not Detected 11/12/2024 2:[address] [facility] Norovirus GI/GII PCR Result Not Detected Not Detected 11/12/2024 2:[address] [facility] Rotavirus A PCR Result Not Detected Not Detected 11/12/2024 2:[address] [facility] Sapovirus PCR Result Not Detected Not Detected 11/12/2024 2:[address] [facility] Stool Rectum structure / Unknown Non-blood Collection / Unknown 11/12/2024 9:50 AM EDT 11/12/2024 10:[address] [facility] - 11/12/2024 2:47 PM EDT [...] ORDE RABLES Final Result Performing Organization Address [facility]/ZIP Co de Phone Number [facility] [address] [place] [address] * C-reactive protein (11/12/2024 9:48 AM EDT) [facility] CRP, Plasma <3.0 <=8.0 mg/L 11/12/2024 10:[address] [facility] Blood Venous blood specimen / Unknown Venipuncture / Unknown 11/12/2024 9:48 AM EDT 11/12/2024 9:[address] [facility] - 11/12/2024 10:28 AM EDT This CRP test is appropriate for assessment of infection, systemic inflammation and/or tissue injury. To assess cardiovascular disease risk order high sensitivity CRP (CRPH). Nathaly Nowak MD LAB BLOOD ORDERABLES Final Resu lt Performing Organization Address [facility] Co de Phone Number [facility] [address] [place] [address] * (ABNORMAL) POCT glucose meter (11/12/2024 8:20 AM EDT) [facility] POCT Glucose 138(H) 74 - 99 [...] Comment 11/12/2024 8:21 AM EDT [facility] Car Salesman ID Wade Feliciano 8:21 AM EDT [facility] Device ID [id number] 11/12/2024 8:21 AM EDT [facility] Specimen Type POC Capillary 11/12/2024 8:21 AM EDT [facility] Blood Capillary blood specimen / Unknown 11/12/2024 8:20 AM EDT 11/12/2024 8:21 AM EDT Nathaly Nowak MD LAB POINT OF CARE TE ST DOCKED DEVICE UNSOLICITED RESULTS Final Result Performing Organization Address [facility] Co de Phone Number [facility] [address] [place] [address] * (ABNORMAL) POCT glucose meter (11/11/2024 8:18 PM EDT) [facility] POCT Glucose 248(H) 74 - 99 [...] Comment 11/11/2024 8:20 PM EDT [facility] Car Salesman ID Nelda Gerber 11/12/19 8:20 PM EDT [facility] Device ID [id number] 11/11/2024 8:20 PM EDT [facility] Specimen Type POC Capillary 11/11/2024 8:20 PM EDT [facility] Blood Capillary blood specimen / Unknown 11/11/2024 8:18 PM EDT 11/11/2024 8:20 PM EDT Nathaly Nowak MD LAB POINT OF CARE TE ST DOCKED DEVICE UNSOLICITED RESULTS Final Result Performing Organization Address City/[facility] Co de Phone Number [facility] [address] [place] [address] * (ABNORMAL) POCT glucose meter (11/11/2024 5:59 PM EDT) [facility] POCT Glucose 147(H) 74 - 99 [...] Comment 11/11/2024 6:01 PM EDT [facility] Car Salesman ID Wade Feliciano 6:01 PM EDT [facility] Device ID [id number] 11/11/2024 6:01 PM EDT [facility] Specimen Type POC Capillary 11/11/2024 6:01 PM EDT [facility] Blood Capillary blood specimen / Unknown 11/11/2024 5:59 PM EDT 11/11/2024 6:01 PM EDT Nathaly Nowak MD LAB POINT OF CARE TE ST DOCKED DEVICE UNSOLICITED RESULTS Final Result Performing Organization Address City/[facility]/ZIP Co de Phone Number [facility] [address] [place] [address] * POCT glucose meter (11/11/2024 5:20 PM EDT) [facility] POCT Glucose 84 74 - 99 [...] Comment 11/11/2024 5:22 PM EDT [facility] Car Salesman ID Wade Feliciano 5:22 PM EDT [facility] Device ID [id number] 11/11/2024 5:22 PM EDT [facility] Specimen Type POC Capillary 11/11/2024 5:22 PM EDT [facility] Blood Capillary blood specimen / Unknown 11/11/2024 5:20 PM EDT 11/11/2024 5:22 PM EDT us Nathaly Nowak MD LAB POINT OF CARE TE ST DOCKED DEVICE UNSOLICITED RESULTS Final Result [facility] [address] [place] [address] * [place] NEGATIVE PRESSURE WOUND THERAPY DME [...] 11/11/2024 12:10 PM EDT [facility] Car Salesman ID BradenWade 12:10 PM EDT [facility] Device ID [id number] 11/11/2024 12:10 PM EDT [facility] Specimen Type POC Capillary 11/11/2024 12:10 PM EDT [facility] Blood Capillary blood specimen / Unknown 11/11/2024 12:08 PM EDT 11/11/2024 12:10 PM EDT us Nathaly Nowak MD LAB POINT OF CARE TE ST DOCKED DEVICE UNSOLICITED RESULTS Final Result [facility] [address] [place] [address] * (ABNORMAL) POCT glucose meter (11/11/2024 9:08 [...] for testing. Comment 11/11/2024 9:09 AM EDT [facility] Car Salesman ID Wade Feliciano 9:09 AM EDT [facility] Device ID [id number] 11/11/2024 9:09 AM EDT [facility] Specimen Type POC Capillary 11/11/2024 9:09 AM EDT [facility] Blood Capillary blood specimen / Unknown 11/11/2024 9:08 AM EDT 11/11/2024 9:09 AM EDT us Nathaly Nowak MD LAB POINT OF CARE TE ST DOCKED DEVICE UNSOLICITED RESULTS Final Result Performing Organization Address City/[facility]/ZIP Co de Phone Number [facility] [address] [place] [address] * POCT glucose meter (11/11/2024 8:27 AM [...] 11/11/2024 8:28 AM EDT [facility] Car Salesman ID Wade Feliciano 8:28 AM EDT [facility] Device ID [id number] 11/11/2024 8:28 AM EDT [facility] Specimen Type POC Capillary 11/11/2024 8:28 AM EDT [facility] Blood Capillary blood specimen / Unknown 11/11/2024 8:27 AM EDT 11/11/2024 8:28 AM EDT us Nathaly Nowak MD LAB POINT OF CARE TE ST DOCKED DEVICE UNSOLICITED RESULTS Final Result [facility] [address] [place] [address] * (ABNORMAL) Basic Metabolic Panel, Plasma (11/11/2024 1:12 AM EDT) Glucose, Plasma 122(H) 74 - 99 mg/dL 11/11/2024 1:[address] [facility] BUN, Plasma 10 8 - 23 mg/dL 11/11/2024 1:[address] [facility] Creatinine, Plasma 0.82 0.70 - 1.20 mg/dL 11/11/2024 1:[address] [facility] BUN/Creatinine Ratio 12 11/11/2024 1:[address] [facility] Sodium, Plasma 137 136 - 145 mmol/L 11/11/2024 1:[address] [facility] Potassium, Plasma 3.9 3.6 - 4.9 mmol/L 11/11/2024 1:[address] [facility] Chloride, Plasma 110(H) 97 - 107 mmol/L 11/11/2024 1:[address] [facility] CO2, Plasma 20(L) 22 - 29 mmol/L 11/11/2024 1:[address] [facility] Anion Gap 7 6 - 16 mmol/L 11/11/2024 1:[address] [facility] Total Calcium, Plasma 7.6(L) 8.9 - 10.2 mg/dL 11/11/2024 1:[address] [facility] eGFRcr 97.5 mL/min/1.7 3m*2 11/11/2024 1:[address] [facility] Comment:Reported eGFRcr in m L/min/1.73m2 is based the CKD-EPI 2020 equation that does not use a race coefficient. Blood Venous blood specimen / Unknown 11/11/2024 12:42 AM EDT us Nathaly Nowak MD LAB BLOOD ORDERABLES Final Resu lt [facility] [address] [place] [address] * (ABNORMAL) CBC W/O Differential (11/11/2024 12:56 AM EDT) WBC Count 11.83(H) 3.70 - 10.30 10*3/uL LAB HEMATOLOGY METHOD 11/11/2024 12:[address] [facility] RBC Count 2.97(L) 4.60 - 6.10 10*6/uL LAB HEMATOLOGY METHOD 11/11/2024 12:[address] [facility] HGB 8.9(L) 13.7 - 17.5 g/dL LAB HEMATOLOGY METHOD 11/11/2024 12:[address] [facility] HCT 27.2(L) 40.0 - 51.0 % LAB HEMATOLOGY METHOD 11/11/2024 12:[address] [facility] Platelet Count 444(H) 155 - 369 10*3/uL LAB HEMATOLOGY METHOD 11/11/2024 12:[address] [facility] MCV 92 79 - 98 fL LAB HEMATOLOGY METHOD 11/11/2024 12:[address] [facility] MCH 30.0 26.0 - 32.0 pg LAB HEMATOLOGY METHOD 11/11/2024 12:[address] [facility] MCHC 32.7 30.7 - 35.5 g/dL LAB HEMATOLOGY METHOD 11/11/2024 12:[address] [facility] RDW 13.3 11.5 - 14.5 % LAB HEMATOLOGY METHOD 11/11/2024 12:[address] [facility] MPV 9.0 8.8 - 12.5 fL LAB HEMATOLOGY METHOD 11/11/2024 12:[address] [facility] nRBC 0.0 <=0.0 per 100 WBCs LAB HEMATOLOGY METHOD 11/11/2024 12:[address] [facility] Blood Venous blood specimen / Unknown 11/11/2024 12:42 AM EDT Nathaly Nowak MD LAB BLOOD ORDERABLES Final Resu lt Performing Organization Address City/[facility]/ZIP Co de Phone Number [facility] [address] [place] [address] * (ABNORMAL) POCT glucose meter (11/10/2024 8:25 [...] Comment 11/10/2024 8:28 PM EDT [facility] Car Salesman ID Nelda Gerber 11/11/19 8:28 PM EDT [facility] Device ID [id number] 11/10/2024 8:28 PM EDT [facility] Specimen Type POC Capillary 11/10/2024 8:28 PM EDT [facility] Blood Capillary blood specimen / Unknown 11/10/2024 8:25 PM EDT 11/10/2024 8:28 PM EDT us Nathaly Nowak MD LAB POINT OF CARE TE ST DOCKED DEVICE UNSOLICITED RESULTS Final Result Performing Organization Address City/[facility]/ZIP Co de Phone Number [facility] [address] [place] [address] * (ABNORMAL) POCT glucose meter (11/10/2024 4:45 [...] 11/10/2024 4:47 PM EDT [facility] Car Salesman ID Esperanza Parks 11/10/2024 4:47 PM EDT [facility] Device ID [id number] 11/10/2024 4:47 PM EDT [facility] Specimen Type POC Capillary 11/10/2024 4:47 PM EDT [facility] Blood Capillary blood specimen / Unknown 11/10/2024 4:45 PM EDT 11/10/2024 4:47 PM EDT Nathaly Nowak MD LAB POINT OF CARE TE ST DOCKED DEVICE UNSOLICITED RESULTS Final Result [facility] [address] [place] [address] * (ABNORMAL) POCT glucose meter (11/10/2024 12:13 PM EDT) [facility] POCT Glucose 131(H) 74 - 99 [...] 11/10/2024 12:14 PM EDT [facility] Car Salesman ID Esperanza Parks 11/10/2024 12:14 PM EDT [facility] Device ID [id number] 11/10/2024 12:14 PM EDT [facility] Specimen Type POC Capillary 11/10/2024 12:14 PM EDT [facility] Blood Capillary blood specimen / Unknown 11/10/2024 12:13 PM EDT 11/10/2024 12:14 PM EDT us Nathaly Nowak MD LAB POINT OF CARE TE ST DOCKED DEVICE UNSOLICITED RESULTS Final Result Performing Organization Address [facility] Co de Phone Number [facility] [address] [place] [address] * Vancomycin, Peak, Plasma Please draw ~2 hours after 0800 dose of vancomycin finishes infusing. Consider obtaining level via peripheral stick. If peripheral stick is not feasible, please ensure that line is flushed well prior to drawing level. Than... (11/10/2024 10:56 AM EDT) [facility] Vancomycin, Peak, Plasma 23.8 20.0 - 40.0 ug/mL 11/10/2024 11:25 AM EDT [facility] Blood Venous blood specimen / Unknown Venipuncture / Unknown 11/10/2024 10:56 AM EDT 11/10/2024 11:[address] [facility] - 11/10/2024 11:25 AM EDT Therapeutic Peak level: 20-40ug/mL Supra-therapeutic Peak level: >40 ug/mL us Abigail Seay MD LAB BLOOD ORDERABLES Final Res ult Performing Organization Address [facility] de Phone Number [facility] [address] [place] [address] * (ABNORMAL) POCT glucose meter (11/10/2024 8:03 AM EDT) [facility] POCT Glucose 174(H) 74 - 99 mg/dL 11/10/2024 8:04 AM EDT [facility] Comment:Accuracy of a glucos e result [...] Comment 11/10/2024 8:04 AM EDT [facility] Car Salesman ID Esperanza Parks 11/10/2024 8:04 AM EDT [facility] Device ID [id number] 11/10/2024 8:04 AM EDT [facility] Specimen Type POC Capillary 11/10/2024 8:04 AM EDT [facility] Blood Capillary blood specimen / Unknown 11/10/2024 8:03 AM EDT 11/10/2024 8:04 AM EDT us Nathaly Nowak MD LAB POINT OF CARE TE ST DOCKED DEVICE UNSOLICITED RESULTS Final Result Performing Organization Address [facility] Co de Phone Number [facility] [address] [place] [address] * Vancomycin, Trough, Plasma Please draw ~30 minutes prior to dose due at 0800 on 11/10. Please do NOThold dose awaiting level to return. Consider obtaining level via peripheral stick. If peripheral stick is not feasible, please ensure that line is... (11/10/2024 7:27 AM EDT) Vancomycin, Trough, Plasma 16.2 10.0 - 20.0 ug/mL 11/10/2024 8:[address] [facility] Blood Venous blood specimen / Unknown Venipuncture / Unknown 11/10/2024 7:27 AM EDT 11/10/2024 7:[address] [facility] - 11/10/2024 8:24 AM EDT Therapeutic Trough level: 10-20ug/mL Supra-therapeutic Trough level: >20 ug/mL us Abigail Seay MD LAB BLOOD ORDERABLES Final Res ult Performing Organization Address City/[facility]/ZIP Co de Phone Number [facility] [address] [place] [address] * (ABNORMAL) CBC and Differential (11/10/2024 12:31 AM EDT) WBC Count 10.80(H) 3.70 - 10.30 10*3/uL LAB HEMATOLOGY METHOD 11/10/2024 12:[address] [facility] RBC Count 3.06(L) 4.60 - 6.10 10*6/uL LAB HEMATOLOGY METHOD 11/10/2024 12:[address] [facility] HGB 9.1(L) 13.7 - 17.5 g/dL LAB HEMATOLOGY METHOD 11/10/2024 12:[address] [facility] HCT 28.0(L) 40.0 - 51.0 % LAB HEMATOLOGY METHOD 11/10/2024 12:[address] [facility] Platelet Count 501(H) 155 - 369 10*3/uL LAB HEMATOLOGY METHOD 11/10/2024 12:[address] [facility] MCV 92 79 - 98 fL LAB HEMATOLOGY METHOD 11/10/2024 12:[address] [facility] MCH 29.7 26.0 - 32.0 pg LAB HEMATOLOGY METHOD 11/10/2024 12:[address] [facility] MCHC 32.5 30.7 - 35.5 g/dL LAB HEMATOLOGY METHOD 11/10/2024 12:[address] [facility] RDW 13.2 11.5 - 14.5 % LAB HEMATOLOGY METHOD 11/10/2024 12:[address] [facility] MPV 8.8 8.8 - 12.5 fL LAB HEMATOLOGY METHOD 11/10/2024 12:[address] [facility] nRBC 0.0 <=0.0 per 100 WBCs LAB HEMATOLOGY METHOD 11/10/2024 12:[address] [facility] Differential Type Automated LAB HEMATOLOGY METHOD 11/10/2024 12:[address] [facility] Neutrophils % 77 % LAB HEMATOLOGY METHOD 11/10/2024 12:[address] [facility] Lymphocytes % 13 % LAB HEMATOLOGY METHOD 11/10/2024 12:[address] [facility] Monocytes % 8 % LAB HEMATOLOGY METHOD 11/10/2024 12:[address] [facility] Eosinophils % 1 % LAB HEMATOLOGY METHOD 11/10/2024 12:[address] [facility] Basophils % 0 % LAB HEMATOLOGY METHOD 11/10/2024 12:[address] [facility] Immature Granulocytes % 1 % LAB HEMATOLOGY METHOD 11/10/2024 12:[address] [facility] Neutrophils Absolute 8.32(H) 1.60 - 6.10 10*3/uL LAB HEMATOLOGY METHOD 11/10/2024 12:[address] [facility] Lymphocytes Absolute 1.40 1.20 - 3.90 10*3/uL LAB HEMATOLOGY METHOD 11/10/2024 12:[address] [facility] Monocytes Absolute 0.89 0.30 - 0.90 10*3/uL LAB HEMATOLOGY METHOD 11/10/2024 12:[address] [facility] Eosinophils Absolute 0.09 0.00 - 0.50 10*3/uL LAB HEMATOLOGY METHOD 11/10/2024 12:[address] [facility] Basophils Absolute 0.04 0.00 - 0.10 10*3/uL LAB HEMATOLOGY METHOD 11/10/2024 12:[address] [facility] Immature Granulocytes Absolute 0.06 0.00 - 0.06 10*3/uL LAB HEMATOLOGY METHOD 11/10/2024 12:[address] [facility] Blood Venous blood specimen / Unknown Venipuncture / Unknown 11/10/2024 12:31 AM EDT 11/10/2024 12:[address] [facility] - 11/10/2024 12:53 AM EDT Therapeutic decision making should be based on absolute values, rather than percentages. us Nathaly Nowak MD LAB BLOOD ORDERABLES Final Resu lt [facility] [address] [place] [address] * (ABNORMAL) Comprehensive Metabolic Panel, Plasma (11/10/2024 12:31 AM EDT) Glucose, Plasma 185(H) 74 - 99 mg/dL 11/10/2024 1:[address] [facility] BUN, Plasma 9 8 - 23 mg/dL 11/10/2024 1:[address] [facility] Creatinine, Plasma 0.72 0.70 - 1.20 mg/dL 11/10/2024 1:[address] [facility] BUN/Creatinine Ratio 13 11/10/2024 1:[address] [facility] Sodium, Plasma 135(L) 136 - 145 mmol/L 11/10/2024 1:[address] [facility] Potassium, Plasma 4.0 3.6 - 4.9 mmol/L 11/10/2024 1:[address] [facility] Chloride, Plasma 106 97 - 107 mmol/L 11/10/2024 1:[address] [facility] CO2, Plasma 19(L) 22 - 29 mmol/L 11/10/2024 1:[address] [facility] Anion Gap 10 6 - 16 mmol/L 11/10/2024 1:[address] [facility] Total Calcium, Plasma 7.8(L) 8.9 - 10.2 mg/dL 11/10/2024 1:[address] [facility] Total Protein 5.6(L) 6.3 - 7.9 g/dL 11/10/2024 1:[address] [facility] Albumin, Plasma 3.1(L) 3.5 - 5.2 g/dL 11/10/2024 1:[address] [facility] AST, Plasma 33 10 - 50 U/L 11/10/2024 1:[address] [facility] ALT, Plasma 25 10 - 50 U/L 11/10/2024 1:[address] [facility] Alkaline Phosphatase, Plasma 108 40 - 115 U/L 11/10/2024 1:[address] [facility] Total Bilirubin, Plasma <0.2(L) 0.2 - 1.1 mg/dL 11/10/2024 1:[address] [facility] eGFRcr 101.4 mL/min/1.7 3m*2 11/10/2024 1:[address] [facility] Comment:Reported eGFRcr in m L/min/1.73m2 is based the CKD-EPI 2020 equation that does not use a race coefficient. Blood Venous blood specimen / Unknown Venipuncture / Unknown 11/10/2024 12:31 AM EDT 11/10/2024 12:37 AM EDT us Nathaly Nowak MD LAB BLOOD ORDERABLES Final Resu lt [facility] [address] [place] [address] * (ABNORMAL) POCT glucose meter (11/09/2024 8:04 PM EDT) [facility] POCT Glucose 114(H) 74 - 99 [...] Comment 11/09/2024 8:06 PM EDT [facility] Car Salesman ID Maximiliano Hansen II 11/09/2024 8:06 PM EDT [facility] Device ID [id number] 11/09/2024 8:06 PM EDT [facility] Specimen Type POC Capillary 11/09/2024 8:06 PM EDT [facility] Blood Capillary blood specimen / Unknown 11/09/2024 8:04 PM EDT 11/09/2024 8:06 PM EDT Nathaly Nowak MD LAB POINT OF CARE TE ST DOCKED DEVICE UNSOLICITED RESULTS Final Result Performing Organization Address [facility] Co de Phone Number [facility] [address] [place] [address] * (ABNORMAL) POCT glucose meter (11/09/2024 4:36 PM EDT) [facility] POCT Glucose 166(H) 74 - 99 [...] 11/09/2024 4:38 PM EDT [facility] Car Salesman ID Kristian Sosa 11/09/2024 4:38 PM EDT [facility] Device ID [id number] 11/09/2024 4:38 PM EDT [facility] Specimen Type POC Capillary 11/09/2024 4:38 PM EDT [facility] Blood Capillary blood specimen / Unknown 11/09/2024 4:36 PM EDT 11/09/2024 4:38 PM EDT Nathaly Nowak MD LAB POINT OF CARE TE ST DOCKED DEVICE UNSOLICITED RESULTS Final Result [facility] [address] [place] [address] * PICC SINGLE LUMEN (SMARTFORM LINK) (11/09/2024 1:11 PM EDT) Narrative Estefani Barraza RN - 11/09/2024 1:11 PM EDT Estefani Barraza RN 11/09/2024 1:12 PM Insert PICC line Date/Time: 11/09/2024 1:11 PM Performed by: Estefani Barraza RN Authorized by: Nathaly Nowak MD [place] Protocol: Verbal consent obtained?: Yes Written consent [...] selection rationale: Left pacemaker Catheter Lot #: [id number] Catheter property man: [email or web address] Catheter placed: Single lumen Catheter size: 4 [...] Comment 11/09/2024 11:51 AM EDT [facility] Car Salesman ID Kristian Sosa 11/09/2024 11:51 AM EDT [facility] Device ID [id number] 11/09/2024 11:51 AM EDT [facility] Specimen Type POC Capillary 11/09/2024 11:51 AM EDT [facility] Blood Capillary blood specimen / Unknown 11/09/2024 11:50 AM EDT 11/09/2024 11:51 AM EDT Nathaly Nowak MD LAB POINT OF CARE TE ST DOCKED DEVICE UNSOLICITED RESULTS Final Result [facility] [address] [place] [id number] * (ABNORMAL) POCT glucose meter (11/09/2024 8:14 [...] Comment 11/09/2024 8:15 AM EDT [facility] Car Salesman ID Kristian Sosa 11/09/2024 8:15 AM EDT [facility] Device ID [id number] 11/09/2024 8:15 AM EDT [facility] Specimen Type POC Capillary 11/09/2024 8:15 AM EDT [facility] Blood Capillary blood specimen / Unknown 11/09/2024 8:14 AM EDT 11/09/2024 8:15 AM EDT us Nathaly Nowak MD LAB POINT OF CARE TE ST DOCKED DEVICE UNSOLICITED RESULTS Final Result Performing Organization Address City/State/[facility] Co de Phone Number [facility] [address] [place] [address] * (ABNORMAL) CBC and Differential (11/09/2024 4:15 AM EDT) WBC Count 10.27 3.70 - 10.30 10*3/uL LAB HEMATOLOGY METHOD 11/09/2024 4:[address] [facility] RBC Count 3.14(L) 4.60 - 6.10 10*6/uL LAB HEMATOLOGY METHOD 11/09/2024 4:[address] [facility] HGB 9.2(L) 13.7 - 17.5 g/dL LAB HEMATOLOGY METHOD 11/09/2024 4:[address] [facility] HCT 28.3(L) 40.0 - 51.0 % LAB HEMATOLOGY METHOD 11/09/2024 4:[address] [facility] Platelet Count 468(H) 155 - 369 10*3/uL LAB HEMATOLOGY METHOD 11/09/2024 4:[address] [facility] MCV 90 79 - 98 fL LAB HEMATOLOGY METHOD 11/09/2024 4:[address] [facility] MCH 29.3 26.0 - 32.0 pg LAB HEMATOLOGY METHOD 11/09/2024 4:[address] [facility] MCHC 32.5 30.7 - 35.5 g/dL LAB HEMATOLOGY METHOD 11/09/2024 4:[address] [facility] RDW 13.1 11.5 - 14.5 % LAB HEMATOLOGY METHOD 11/09/2024 4:[address] [facility] MPV 8.7(L) 8.8 - 12.5 fL LAB HEMATOLOGY METHOD 11/09/2024 4:[address] [facility] nRBC 0.0 <=0.0 per 100 WBCs LAB HEMATOLOGY METHOD 11/09/2024 4:[address] [facility] Differential Type Automated LAB HEMATOLOGY METHOD 11/09/2024 4:[address] [facility] Neutrophils % 77 % LAB HEMATOLOGY METHOD 11/09/2024 4:[address] [facility] Lymphocytes % 13 % LAB HEMATOLOGY METHOD 11/09/2024 4:[address] [facility] Monocytes % 8 % LAB HEMATOLOGY METHOD 11/09/2024 4:[address] [facility] Eosinophils % 1 % LAB HEMATOLOGY METHOD 11/09/2024 4:[address] [facility] Basophils % 0 % LAB HEMATOLOGY METHOD 11/09/2024 4:[address] [facility] Immature Granulocytes % 1 % LAB HEMATOLOGY METHOD 11/09/2024 4:[address] [facility] Neutrophils Absolute 7.97(H) 1.60 - 6.10 10*3/uL LAB HEMATOLOGY METHOD 11/09/2024 4:26 AM EDT [facility] Lymphocytes Absolute 1.32 1.20 - 3.90 10*3/uL LAB HEMATOLOGY METHOD 11/09/2024 4:[address] [facility] Monocytes Absolute 0.83 0.30 - 0.90 10*3/uL LAB HEMATOLOGY METHOD 11/09/2024 4:[address] [facility] Eosinophils Absolute 0.07 0.00 - 0.50 10*3/uL LAB HEMATOLOGY METHOD 11/09/2024 4:[address] [facility] Basophils Absolute 0.03 0.00 - 0.10 10*3/uL LAB HEMATOLOGY METHOD 11/09/2024 4:[address] [facility] Immature Granulocytes Absolute 0.05 0.00 - 0.06 10*3/uL LAB HEMATOLOGY METHOD 11/09/2024 4:[address] [facility] Blood Venous blood specimen / Unknown Venipuncture / Unknown 11/09/2024 4:15 AM EDT 11/09/2024 4:[address] [facility] - 11/09/2024 4:26 AM EDT Therapeutic decision making should be based on absolute values, rather than percentages. us Nathaly Nowak MD LAB BLOOD ORDERABLES Final Resu lt [facility] [address] [place] [address] * (ABNORMAL) Comprehensive Metabolic Panel, Plasma (11/09/2024 4:15 AM EDT) Glucose, Plasma 171(H) 74 - 99 mg/dL 11/09/2024 4:[address] [facility] BUN, Plasma 9 8 - 23 mg/dL 11/09/2024 4:[address] [facility] Creatinine, Plasma 0.67(L) 0.70 - 1.20 mg/dL 11/09/2024 4:[address] [facility] BUN/Creatinine Ratio 13 11/09/2024 4:[address] [facility] Sodium, Plasma 134(L) 136 - 145 mmol/L 11/09/2024 4:[address] [facility] Potassium, Plasma 4.1 3.6 - 4.9 mmol/L 11/09/2024 4:[address] [facility] Chloride, Plasma 104 97 - 107 mmol/L 11/09/2024 4:[address] [facility] CO2, Plasma 21(L) 22 - 29 mmol/L 11/09/2024 4:[address] [facility] Anion Gap 9 6 - 16 mmol/L 11/09/2024 4:[address] [facility] Total Calcium, Plasma 8.4(L) 8.9 - 10.2 mg/dL 11/09/2024 4:[address] [facility] Total Protein 5.8(L) 6.3 - 7.9 g/dL 11/09/2024 4:[address] [facility] Albumin, Plasma 3.2(L) 3.5 - 5.2 g/dL 11/09/2024 4:[address] [facility] AST, Plasma 18 10 - 50 U/L 11/09/2024 4:[address] [facility] ALT, Plasma 17 10 - 50 U/L 11/09/2024 4:[address] [facility] Alkaline Phosphatase, Plasma 110 40 - 115 U/L 11/09/2024 4:[address] [facility] Total Bilirubin, Plasma <0.2(L) 0.2 - 1.1 mg/dL 11/09/2024 4:[address] [facility] eGFRcr 103.6 mL/min/1.7 3m*2 11/09/2024 4:[address] [facility] Comment:Reported eGFRcr in m L/min/1.73m2 is based the CKD-EPI 2020 equation that does not use a race coefficient. Blood Venous blood specimen / Unknown Venipuncture / Unknown 11/09/2024 4:15 AM EDT 11/09/2024 4:18 AM EDT us Nathaly Nowak MD LAB BLOOD ORDERABLES Final Resu lt [facility] [address] [place] [address] * (ABNORMAL) POCT glucose meter (11/09/2024 3:30 AM EDT) POCT Glucose 160(H) 74 - 99 mg/dL 11/09/2024 3:31 AM EDT [facility] Comment:Accuracy of a glucos e result [...] Comment 11/09/2024 3:31 AM EDT [facility] Car Salesman ID Maximiliano Hansen II 11/09/2024 3:31 AM EDT [facility] Device ID [id number] 11/09/2024 3:31 AM EDT [facility] Specimen Type POC Capillary 11/09/2024 3:31 AM EDT [facility] Blood Capillary blood specimen / Unknown 11/09/2024 3:30 AM EDT 11/09/2024 3:31 AM EDT Nathaly Nowak MD LAB POINT OF CARE TE ST DOCKED DEVICE UNSOLICITED RESULTS Final Result Performing Organization Address City/[facility]/ZIP Co de Phone Number [facility] [address] [place] [address] * (ABNORMAL) POCT glucose meter (11/08/2024 7:21 [...] Comment 11/08/2024 7:22 PM EDT [facility] Car Salesman ID Maximiliano Hansen II 11/08/2024 7:22 PM EDT [facility] Device ID [id number] 11/08/2024 7:22 PM EDT [facility] Specimen Type POC Capillary 11/08/2024 7:22 PM EDT [facility] Blood Capillary blood specimen / Unknown 11/08/2024 7:21 PM EDT 11/08/2024 7:22 PM EDT Nathaly Nowak MD LAB POINT OF CARE TE ST DOCKED DEVICE UNSOLICITED RESULTS Final Result Performing Organization Address City/[facility]/ZIP Co de Phone Number [facility] [address] [place] [address] * (ABNORMAL) POCT glucose meter (11/08/2024 5:12 PM EDT) [facility] POCT Glucose 178(H) 74 - 99 [...] Comment 11/08/2024 5:14 PM EDT [facility] Car Salesman ID Estefani Sheth 11/08/2024 5:14 PM EDT [facility] Device ID [id number] 11/08/2024 5:14 PM EDT [facility] Specimen Type POC Capillary 11/08/2024 5:14 PM EDT [facility] Blood Capillary blood specimen / Unknown 11/08/2024 5:12 PM EDT 11/08/2024 5:14 PM EDT us Nathaly Nowak MD LAB POINT OF CARE TE ST DOCKED DEVICE UNSOLICITED RESULTS Final Result Performing Organization Address City/State/[facility] Co de Phone Number [facility] [address] [place] [address] * (ABNORMAL) POCT glucose meter (11/08/2024 12:03 PM EDT) [facility] POCT Glucose 191(H) 74 - 99 [...] Comment 11/08/2024 12:05 PM EDT [facility] Car Salesman ID Estefani Sheth 11/08/2024 12:05 PM EDT [facility] Device ID [id number] 11/08/2024 12:05 PM EDT [facility] Specimen Type POC Capillary 11/08/2024 12:05 PM EDT [facility] Blood Capillary blood specimen / Unknown 11/08/2024 12:03 PM EDT 11/08/2024 12:05 PM EDT Nathaly Nowak MD LAB POINT OF CARE TE ST DOCKED DEVICE UNSOLICITED RESULTS Final Result Performing Organization Address [facility] de Phone Number [facility] [address] [place] [address] * Vancomycin, Peak, Plasma Please draw ~2 hours after 11/08 0600 dose of vancomycin finishes infusing.Consider obtaining level via peripheral stick. If peripheral stick is not feasible, please ensure that line is flushed well prior to drawing level.... (11/08/2024 9:24 AM EDT) [facility] Vancomycin, Peak, Plasma 29.1 20.0 - 40.0 ug/mL 11/08/2024 10:31 AM EDT [facility] Blood Venous blood specimen / Unknown Venipuncture / Unknown 11/08/2024 9:24 AM EDT 11/08/2024 9:[address] [facility] - 11/08/2024 10:31 AM EDT Therapeutic Peak level: 20-40ug/mL Supra-therapeutic Peak level: >40 ug/mL Nathaly Nowak MD LAB BLOOD ORDERABLES Final Resu lt Performing Organization Address [facility] Phone Number [facility] [address] [place] [address] * (ABNORMAL) POCT glucose meter (11/08/2024 8:00 AM EDT) [facility] POCT Glucose 150(H) 74 - 99 mg/dL 11/08/2024 8:01 AM EDT [facility] Comment:Accuracy of a glucos e [...] Comment 11/08/2024 8:01 AM EDT [facility] Car Salesman ID Estefani Sheth 11/08/2024 8:01 AM EDT [facility] Device ID [id number] 11/08/2024 8:01 AM EDT [facility] Specimen Type POC Capillary 11/08/2024 8:01 AM EDT [facility] Blood Capillary blood specimen / Unknown 11/08/2024 8:00 AM EDT 11/08/2024 8:01 AM EDT us Nathaly Nowak MD LAB POINT OF CARE TE ST DOCKED DEVICE UNSOLICITED RESULTS Final Result [facility] [address] [place] [address] * (ABNORMAL) CBC and Differential (11/08/2024 4:39 AM EDT) WBC Count 9.18 3.70 - 10.30 10*3/uL LAB HEMATOLOGY METHOD 11/08/2024 4:[address] [facility] RBC Count 3.11(L) 4.60 - 6.10 10*6/uL LAB HEMATOLOGY METHOD 11/08/2024 4:[address] [facility] HGB 9.2(L) 13.7 - 17.5 g/dL LAB HEMATOLOGY METHOD 11/08/2024 4:[address] [facility] HCT 28.9(L) 40.0 - 51.0 % LAB HEMATOLOGY METHOD 11/08/2024 4:[address] [facility] Platelet Count 485(H) 155 - 369 10*3/uL LAB HEMATOLOGY METHOD 11/08/2024 4:[address] [facility] MCV 93 79 - 98 fL LAB HEMATOLOGY METHOD 11/08/2024 4:[address] [facility] MCH 29.6 26.0 - 32.0 pg LAB HEMATOLOGY METHOD 11/08/2024 4:[address] [facility] MCHC 31.8 30.7 - 35.5 g/dL LAB HEMATOLOGY METHOD 11/08/2024 4:[address] [facility] RDW 13.0 11.5 - 14.5 % LAB HEMATOLOGY METHOD 11/08/2024 4:[address] [facility] MPV 8.8 8.8 - 12.5 fL LAB HEMATOLOGY METHOD 11/08/2024 4:[address] [facility] nRBC 0.0 <=0.0 per 100 WBCs LAB HEMATOLOGY METHOD 11/08/2024 4:[address] [facility] Differential Type Automated LAB HEMATOLOGY METHOD 11/08/2024 4:[address] [facility] Neutrophils % 69 % LAB HEMATOLOGY METHOD 11/08/2024 4:[address] [facility] Lymphocytes % 17 % LAB HEMATOLOGY METHOD 11/08/2024 4:[address] [facility] Monocytes % 10 % LAB HEMATOLOGY METHOD 11/08/2024 4:[address] [facility] Eosinophils % 2 % LAB HEMATOLOGY METHOD 11/08/2024 4:[address] [facility] Basophils % 1 % LAB HEMATOLOGY METHOD 11/08/2024 4:[address] [facility] Immature Granulocytes % 1 % LAB HEMATOLOGY METHOD 11/08/2024 4:[address] [facility] Neutrophils Absolute 6.40(H) 1.60 - 6.10 10*3/uL LAB HEMATOLOGY METHOD 11/08/2024 4:[address] [facility] Lymphocytes Absolute 1.59 1.20 - 3.90 10*3/uL LAB HEMATOLOGY METHOD 11/08/2024 4:[address] [facility] Monocytes Absolute 0.87 0.30 - 0.90 10*3/uL LAB HEMATOLOGY METHOD 11/08/2024 4:[address] [facility] Eosinophils Absolute 0.22 0.00 - 0.50 10*3/uL LAB HEMATOLOGY METHOD 11/08/2024 4:[address] [facility] Basophils Absolute 0.05 0.00 - 0.10 10*3/uL LAB HEMATOLOGY METHOD 11/08/2024 4:[address] [facility] Immature Granulocytes Absolute 0.05 0.00 - 0.06 10*3/uL LAB HEMATOLOGY METHOD 11/08/2024 4:[address] [facility] Blood Venous blood specimen / Unknown Venipuncture / Unknown 11/08/2024 4:39 AM EDT 11/08/2024 4:[address] [facility] - 11/08/2024 4:58 AM EDT Therapeutic decision making should be based on absolute values, rather than percentages. us Nathaly Nowak MD LAB BLOOD ORDERABLES Final Resu lt [facility] [address] [place] [address] * (ABNORMAL) Comprehensive Metabolic Panel, Plasma (11/08/2024 4:39 AM EDT) Glucose, Plasma 255(H) 74 - 99 mg/dL 11/08/2024 5:[address] [facility] BUN, Plasma 10 8 - 23 mg/dL 11/08/2024 5:[address] [facility] Creatinine, Plasma 0.75 0.70 - 1.20 mg/dL 11/08/2024 5:[address] [facility] BUN/Creatinine Ratio 13 11/08/2024 5:[address] [facility] Sodium, Plasma 133(L) 136 - 145 mmol/L 11/08/2024 5:[address] [facility] Potassium, Plasma 5.2(H) 3.6 - 4.9 mmol/L 11/08/2024 5:[address] [facility] Chloride, Plasma 105 97 - 107 mmol/L 11/08/2024 5:[address] [facility] CO2, Plasma 20(L) 22 - 29 mmol/L 11/08/2024 5:[address] [facility] Anion Gap 8 6 - 16 mmol/L 11/08/2024 5:[address] [facility] Total Calcium, Plasma 7.7(L) 8.9 - 10.2 mg/dL 11/08/2024 5:[address] [facility] Total Protein 5.6(L) 6.3 - 7.9 g/dL 11/08/2024 5:[address] [facility] Albumin, Plasma 2.8(L) 3.5 - 5.2 g/dL 11/08/2024 5:[address] [facility] AST, Plasma 20 10 - 50 U/L 11/08/2024 5:[address] [facility] Comment:Hemolyzed, result ma y be falsely increased. ALT, Plasma 14 10 - 50 U/L 11/08/2024 5:[address] [facility] Alkaline Phosphatase, Plasma 119(H) 40 - 115 U/L 11/08/2024 5:[address] [facility] Total Bilirubin, Plasma <0.2(L) 0.2 - 1.1 mg/dL 11/08/2024 5:[address] [facility] eGFRcr 100.1 mL/min/1.7 3m*2 11/08/2024 5:[address] [facility] Comment:Reported eGFRcr in m L/min/1.73m2 is based the CKD-EPI 2020 equation that does not use a race coefficient. Blood Venous blood specimen / Unknown Venipuncture / Unknown 11/08/2024 4:39 AM EDT 11/08/2024 4:43 AM EDT us Nathaly Nowak MD LAB BLOOD ORDERABLES Final Resu lt [facility] [address] [place] [address] * Vancomycin, Trough, Plasma Please draw ~30 minutes prior to dose due at 0600 on 11/08. Please do NOThold dose awaiting level to return. Consider obtaining level via peripheral stick. If peripheral stick is not feasible, please ensure that line is... (11/08/2024 4:39 AM EDT) Vancomycin, Trough, Plasma 18.7 10.0 - 20.0 ug/mL 11/08/2024 5:[address] [facility] Blood Venous blood specimen / Unknown Venipuncture / Unknown 11/08/2024 4:39 AM EDT 11/08/2024 4:[address] [facility] - 11/08/2024 5:22 AM EDT Therapeutic Trough level: 10-20ug/mL Supra-therapeutic Trough level: >20 ug/mL us Nathaly Nowak MD LAB BLOOD ORDERABLES Final Resu lt Performing Organization Address City/[facility]/ZIP Co de Phone Number [facility] [address] [place] [address] * (ABNORMAL) POCT glucose meter (11/07/2024 7:26 [...] Comment 11/07/2024 7:28 PM EDT [facility]ALTH[facility] Car Salesman ID Maximiliano Hansen II 11/07/2024 7:28 PM EDT [facility] Device ID [id number] 11/07/2024 7:28 PM EDT [facility] Specimen Type POC Capillary 11/07/2024 7:28 PM EDT [facility] Blood Capillary blood specimen / Unknown 11/07/2024 7:26 PM EDT 11/07/2024 7:28 PM EDT us Nathaly Nowak MD LAB POINT OF CARE TE ST DOCKED DEVICE UNSOLICITED RESULTS Final Result Performing Organization Address City/[facility] Co de Phone Number [facility] [address] [place] [address] * (ABNORMAL) POCT glucose meter (11/07/2024 5:51 [...] 11/07/2024 5:52 PM EDT [facility] Car Salesman ID Brigitte Castellon 11/07/2024 5:52 PM EDT [facility] Device ID [id number] 11/07/2024 5:52 PM EDT [facility] Specimen Type POC Capillary 11/07/2024 5:52 PM EDT [facility] Blood Capillary blood specimen / Unknown 11/07/2024 5:51 PM EDT 11/07/2024 5:52 PM EDT Nathaly Nowak MD LAB POINT OF CARE TE ST DOCKED DEVICE UNSOLICITED RESULTS Final Result Performing Organization Address [facility] de Phone Number [facility] [address] [place] [address] * (ABNORMAL) POCT glucose meter (11/07/2024 4:47 [...] 11/07/2024 4:48 PM EDT [facility] Car Salesman ID Estefani Sheth 11/07/2024 4:48 PM EDT [facility]ALTH[facility] Device ID [id number] 11/07/2024 4:48 PM EDT [facility] Specimen Type POC Capillary 11/07/2024 4:48 PM EDT [facility] Blood Capillary blood specimen / Unknown 11/07/2024 4:47 PM EDT 11/07/2024 4:48 PM EDT Nathaly Nowak MD LAB POINT OF CARE TE ST DOCKED DEVICE UNSOLICITED RESULTS Final Result Performing Organization Address City/[facility] Co de Phone Number [facility] [address] [place] [address] * (ABNORMAL) POCT glucose meter (11/07/2024 12:22 PM EDT) [facility] POCT Glucose 172(H) 74 - 99 [...] Comment 11/07/2024 12:24 PM EDT [facility] Car Salesman ID Estefani Sheth 11/07/2024 12:24 PM EDT [facility] Device ID [id number] 11/07/2024 12:24 PM EDT [facility] Specimen Type POC Capillary 11/07/2024 12:24 PM EDT [facility] Blood Capillary blood specimen / Unknown 11/07/2024 12:22 PM EDT 11/07/2024 12:24 PM EDT us Nathaly Nowak MD LAB POINT OF CARE TE ST DOCKED DEVICE UNSOLICITED RESULTS Final Result [facility] [address] [place] [address] * (ABNORMAL) CBC and Differential (11/07/2024 11:37 AM EDT) [facility] WBC Count 9.96 3.70 - 10.30 10*3/uL LAB HEMATOLOGY METHOD 11/07/2024 12:[address] [facility] RBC Count 2.81(L) 4.60 - 6.10 10*6/uL LAB HEMATOLOGY METHOD 11/07/2024 12:[address] [facility] HGB 8.5(L) 13.7 - 17.5 g/dL LAB HEMATOLOGY METHOD 11/07/2024 12:[address] [facility] HCT 26.0(L) 40.0 - 51.0 % LAB HEMATOLOGY METHOD 11/07/2024 12:[address] [facility] Platelet Count 524(H) 155 - 369 10*3/uL LAB HEMATOLOGY METHOD 11/07/2024 12:[address] [facility] MCV 93 79 - 98 fL LAB HEMATOLOGY METHOD 11/07/2024 12:[address] [facility] MCH 30.2 26.0 - 32.0 pg LAB HEMATOLOGY METHOD 11/07/2024 12:[address] [facility] MCHC 32.7 30.7 - 35.5 g/dL LAB HEMATOLOGY METHOD 11/07/2024 12:[address] [facility] RDW 13.1 11.5 - 14.5 % LAB HEMATOLOGY METHOD 11/07/2024 12:[address] [facility] MPV 9.0 8.8 - 12.5 fL LAB HEMATOLOGY METHOD 11/07/2024 12:[address] [facility] nRBC 0.0 <=0.0 per 100 WBCs LAB HEMATOLOGY METHOD 11/07/2024 12:[address] [facility] Differential Type Automated LAB HEMATOLOGY METHOD 11/07/2024 12:[address] [facility] Neutrophils % 72 % LAB HEMATOLOGY METHOD 11/07/2024 12:[address] [facility] Lymphocytes % 17 % LAB HEMATOLOGY METHOD 11/07/2024 12:[address] [facility] Monocytes % 9 % LAB HEMATOLOGY METHOD 11/07/2024 12:[address] [facility] Eosinophils % 1 % LAB HEMATOLOGY METHOD 11/07/2024 12:[address] [facility] Basophils % 1 % LAB HEMATOLOGY METHOD 11/07/2024 12:33 PM EDT [facility] Immature Granulocytes % 0 % LAB HEMATOLOGY METHOD 11/07/2024 12:[address] [facility] Neutrophils Absolute 7.19(H) 1.60 - 6.10 10*3/uL LAB HEMATOLOGY METHOD 11/07/2024 12:[address] [facility] Lymphocytes Absolute 1.66 1.20 - 3.90 10*3/uL LAB HEMATOLOGY METHOD 11/07/2024 12:[address] [facility] Monocytes Absolute 0.88 0.30 - 0.90 10*3/uL LAB HEMATOLOGY METHOD 11/07/2024 12:[address] [facility] Eosinophils Absolute 0.14 0.00 - 0.50 10*3/uL LAB HEMATOLOGY METHOD 11/07/2024 12:[address] [facility] Basophils Absolute 0.05 0.00 - 0.10 10*3/uL LAB HEMATOLOGY METHOD 11/07/2024 12:[address] [facility] Immature Granulocytes Absolute 0.04 0.00 - 0.06 10*3/uL LAB HEMATOLOGY METHOD 11/07/2024 12:[address] [facility] Blood Venous blood specimen / Unknown Venipuncture / Unknown 11/07/2024 11:37 AM EDT 11/07/2024 12:[address] [facility] - 11/07/2024 12:33 PM EDT Therapeutic decision making should be based on absolute values, rather than percentages. us Nathaly Nowak MD LAB BLOOD ORDERABLES Final Resu lt [facility] [address] [place] [address] * (ABNORMAL) Comprehensive Metabolic Panel, Plasma (11/07/2024 11:37 AM EDT) Glucose, Plasma 173(H) 74 - 99 mg/dL 11/07/2024 1:[address] [facility] BUN, Plasma 13 8 - 23 mg/dL 11/07/2024 1:[address] [facility] Creatinine, Plasma 0.92 0.70 - 1.20 mg/dL 11/07/2024 1:[address] [facility] BUN/Creatinine Ratio 11/07/2024 1:[address] [facility] Sodium, Plasma 136 136 - 145 mmol/L 11/07/2024 1:[address] [facility] Potassium, Plasma 4.0 3.6 - 4.9 mmol/L 11/07/2024 1:[address] [facility] Chloride, Plasma 104 97 - 107 mmol/L 11/07/2024 1:[address] [facility] CO2, Plasma 23 22 - 29 mmol/L 11/07/2024 1:[address] [facility] Anion Gap 9 6 - 16 mmol/L 11/07/2024 1:[address] [facility] Total Calcium, Plasma 7.8(L) 8.9 - 10.2 mg/dL 11/07/2024 1:[address] [facility] Total Protein 5.7(L) 6.3 - 7.9 g/dL 11/07/2024 1:[address] [facility] Albumin, Plasma 3.0(L) 3.5 - 5.2 g/dL 11/07/2024 1:[address] [facility] AST, Plasma 15 10 - 50 U/L 11/07/2024 1:[address] [facility] ALT, Plasma 16 10 - 50 U/L 11/07/2024 1:[address] [facility] Alkaline Phosphatase, Plasma 119(H) 40 - 115 U/L 11/07/2024 1:[address] [facility] Total Bilirubin, Plasma <0.2(L) 0.2 - 1.1 mg/dL 11/07/2024 1:[address] [facility] eGFRcr 92.3 mL/min/1.7 3m*2 11/07/2024 1:[address] [facility] Comment:Reported eGFRcr in m L/min/1.73m2 is based the CKD-EPI 2020 equation that does not use a race coefficient. Blood Venous blood specimen / Unknown Venipuncture / Unknown 11/07/2024 11:37 AM EDT 11/07/2024 12:23 PM EDT us Nathaly Nowak MD LAB BLOOD ORDERABLES Final Resu lt [facility] [address] [place] [address] * Type and Screen (11/07/2024 11:37 AM [...] ORDERABLES F inal Result Performing Organization Address City/[facility]/ZIP Co de Phone Number BLOOD BANK [address] * (ABNORMAL) POCT glucose meter (11/07/2024 [...] Comment 11/07/2024 10:36 AM [facility]T [facility] Car Salesman ID Joy Iraheta 11/07/2024 10:36 AM EDT [facility] Device ID [id number] 11/07/2024 10:36 AM EDT [facility] Specimen Type POC Capillary 11/07/2024 10:36 AM EDT [facility] Blood Capillary blood specimen / Unknown 11/07/2024 10:34 AM EDT 11/07/2024 10:36 AM EDT Nathaly Nowak MD LAB POINT OF CARE TE ST DOCKED DEVICE UNSOLICITED RESULTS Final Result Performing Organization Address City/[facility]/ZIP Co de Phone Number [facility] [address] [place] [address] * (ABNORMAL) POCT glucose meter (11/07/2024 9:34 [...] 11/07/2024 9:36 AM EDT [facility] Car Salesman ID Brigitte Castellon 11/07/2024 9:36 AM EDT [facility] Device ID [id number] 11/07/2024 9:36 AM EDT [facility] Specimen Type POC Capillary 11/07/2024 9:36 AM EDT [facility] Blood Capillary blood specimen / Unknown 11/07/2024 9:34 AM EDT 11/07/2024 9:36 AM EDT Nathaly Nowak MD LAB POINT OF CARE TE ST DOCKED DEVICE UNSOLICITED RESULTS Final Result [facility] [address] [place] [address] * (ABNORMAL) POCT glucose meter (11/07/2024 8:20 AM EDT) [facility] POCT Glucose 137(H) 74 - 99 [...] 11/07/2024 8:22 AM EDT [facility] Car Salesman ID Estefani Sheth 11/07/2024 8:22 AM EDT [facility] Device ID [id number] 11/07/2024 8:22 AM EDT [facility] Specimen Type POC Capillary 11/07/2024 8:22 AM EDT [facility] Blood Capillary blood specimen / Unknown 11/07/2024 8:20 AM EDT 11/07/2024 8:22 AM EDT Nathaly Nowak MD LAB POINT OF CARE TE ST DOCKED DEVICE UNSOLICITED RESULTS Final Result Performing Organization Address City/[facility] Co de Phone Number [facility] [address] [place] [address] * (ABNORMAL) POCT glucose meter (11/07/2024 7:21 [...] for testing. Comment 11/07/2024 7:22 AM EDT [facility] Car Salesman ID Brigitte Castellon 11/07/2024 7:22 AM EDT [facility] Device ID [id number] 11/07/2024 7:22 AM EDT [facility] Specimen Type POC Capillary 11/07/2024 7:22 AM EDT [facility] Blood Capillary blood specimen / Unknown 11/07/2024 7:21 AM EDT 11/07/2024 7:22 AM EDT Nathaly Nowak MD LAB POINT OF CARE TE ST DOCKED DEVICE UNSOLICITED RESULTS Final Result Performing Organization Address City/[facility] Co de Phone Number [facility] [address] [place] [address] * (ABNORMAL) POCT glucose meter (11/07/2024 6:25 [...] 11/07/2024 6:27 AM EDT [facility] Car Salesman ID Nelda Gerber 11/08/19 6:27 AM EDT [facility] Device ID [id number] 11/07/2024 6:27 AM EDT [facility] Specimen Type POC Capillary 11/07/2024 6:27 AM EDT [facility] Blood Capillary blood specimen / Unknown 11/07/2024 6:25 AM EDT 11/07/2024 6:27 AM EDT Nathaly Nowak MD LAB POINT OF CARE TE ST DOCKED DEVICE UNSOLICITED RESULTS Final Result Performing Organization Address [facility] de Phone Number [facility] [address] [place] [address] * (ABNORMAL) POCT glucose meter (11/07/2024 5:03 [...] Comment 11/07/2024 5:08 AM EDT [facility] Car Salesman ID Nelda Gerber 11/08/19 5:08 AM EDT [facility] Device ID [id number] 11/07/2024 5:08 AM EDT [facility] Specimen Type POC Capillary 11/07/2024 5:08 AM EDT [facility] Blood Capillary blood specimen / Unknown 11/07/2024 5:03 AM EDT 11/07/2024 5:08 AM EDT Nathaly Nowak MD LAB POINT OF CARE TE ST DOCKED DEVICE UNSOLICITED RESULTS Final Result Performing Organization Address City/[facility] Co de Phone Number [facility] [address] [place] [address] * (ABNORMAL) POCT glucose meter (11/07/2024 4:16 AM EDT) [facility] POCT Glucose 142(H) 74 - 99 [...] Comment 11/07/2024 4:18 AM EDT [facility] Car Salesman ID Nelda Gerber 11/08/19 4:18 AM EDT [facility] Device ID [id number] 11/07/2024 4:18 AM EDT [facility] Specimen Type POC Capillary 11/07/2024 4:18 AM EDT [facility] Blood Capillary blood specimen / Unknown 11/07/2024 4:16 AM EDT 11/07/2024 4:18 AM EDT Nathaly Nowak MD LAB POINT OF CARE TE ST DOCKED DEVICE UNSOLICITED RESULTS Final Result [facility] [address] [place] [address] * (ABNORMAL) POCT glucose meter (11/07/2024 3:21 AM EDT) [facility] POCT Glucose 141(H) 74 - 99 [...] 11/07/2024 3:23 AM EDT [facility] Car Salesman ID Nelda Gerber 11/08/19 3:23 AM EDT [facility] Device ID [id number] 11/07/2024 3:23 AM EDT [facility] Specimen Type POC Capillary 11/07/2024 3:23 AM EDT [facility] Blood Capillary blood specimen / Unknown 11/07/2024 3:21 AM EDT 11/07/2024 3:23 AM EDT Nathaly Nowak MD LAB POINT OF CARE TE ST DOCKED DEVICE UNSOLICITED RESULTS Final Result Performing Organization Address City/[facility] Co de Phone Number [facility] [address] [place] [address] * (ABNORMAL) POCT glucose meter (11/07/2024 2:10 [...] Comment 11/07/2024 2:12 AM EDT [facility] Car Salesman ID Nelda Gerber 11/08/19 2:12 AM EDT [facility] Device ID [id number] 11/07/2024 2:12 AM EDT [facility] Specimen Type POC Capillary 11/07/2024 2:12 AM EDT [facility] Blood Capillary blood specimen / Unknown 11/07/2024 2:10 AM EDT 11/07/2024 2:12 AM EDT Nathaly Nowak MD LAB POINT OF CARE TE ST DOCKED DEVICE UNSOLICITED RESULTS Final Result Performing Organization Address City/[facility] Co de Phone Number [facility] [address] [place] [address] * (ABNORMAL) POCT glucose meter (11/07/2024 1:08 [...] Comment 11/07/2024 1:10 AM EDT [facility] Car Salesman ID Nelda Gerber 11/08/19 1:10 AM EDT [facility] Device ID [id number] 11/07/2024 1:10 AM EDT [facility] Specimen Type POC Capillary 11/07/2024 1:10 AM EDT [facility] Blood Capillary blood specimen / Unknown 11/07/2024 1:08 AM EDT 11/07/2024 1:10 AM EDT Nathaly Nowak MD LAB POINT OF CARE TE ST DOCKED DEVICE UNSOLICITED RESULTS Final Result Performing Organization Address City/State/[facility] Co de Phone Number [facility] [address] [place] [address] * (ABNORMAL) POCT glucose meter (11/07/2024 12:10 AM EDT) [facility] POCT Glucose 127(H) 74 - 99 [...] Comment 11/07/2024 12:13 AM EDT [facility] Car Salesman ID Nelda Gerber 11/08/19 12:13 AM EDT [facility] Device ID [id number] 11/07/2024 12:13 AM EDT [facility] Specimen Type POC Capillary 11/07/2024 12:13 AM EDT [facility] Blood Capillary blood specimen / Unknown 11/07/2024 12:10 AM EDT 11/07/2024 12:13 AM EDT Nathaly Nowak MD LAB POINT OF CARE TE ST DOCKED DEVICE UNSOLICITED RESULTS Final Result Performing Organization Address City/[facility] Co de Phone Number [facility] [address] [place] [address] * (ABNORMAL) POCT glucose meter (11/06/2024 11:14 [...] for testing. Comment 11/06/2024 11:16 PM EDT [facility] Car Salesman ID Nelda Gerber 11/07/19 11:16 PM EDT [facility] Device ID [id number] 11/06/2024 11:16 PM EDT [facility] Specimen Type POC Capillary 11/06/2024 11:16 PM EDT [facility] Blood Capillary blood specimen / Unknown 11/06/2024 11:14 PM EDT 11/06/2024 11:16 PM EDT Nathaly Nowak MD LAB POINT OF CARE TE ST DOCKED DEVICE UNSOLICITED RESULTS Final Result Performing Organization Address City/[facility] Co de Phone Number [facility] [address] [place] [address] * (ABNORMAL) POCT glucose meter (11/06/2024 10:07 [...] Comment 11/06/2024 10:09 PM EDT [facility] Car Salesman ID Nelda Gerber 11/07/19 10:09 PM EDT [facility] Device ID [id number] 11/06/2024 10:09 PM EDT [facility] Specimen Type POC Capillary 11/06/2024 10:09 PM EDT [facility] Blood Capillary blood specimen / Unknown 11/06/2024 10:07 PM EDT 11/06/2024 10:09 PM EDT Nathaly Nowak MD LAB POINT OF CARE TE ST DOCKED DEVICE UNSOLICITED RESULTS Final Result Performing Organization Address City/[facility] Co de Phone Number [facility] [address] [place] [address] * (ABNORMAL) POCT glucose meter (11/06/2024 8:22 [...] Comment 11/06/2024 8:25 PM EDT [facility] Car Salesman ID Nelda Gerber 11/07/19 8:25 PM EDT [facility] Device ID [id number] 11/06/2024 8:25 PM EDT [facility] Specimen Type POC Capillary 11/06/2024 8:25 PM EDT [facility] Blood Capillary blood specimen / Unknown 11/06/2024 8:22 PM EDT 11/06/2024 8:25 PM EDT us Nathaly Nowak MD LAB POINT OF CARE TE ST DOCKED DEVICE UNSOLICITED RESULTS Final Result Performing Organization Address City/[facility]/ZIP Co de Phone Number [facility] [address] [place] [address] * (ABNORMAL) POCT glucose meter (11/06/2024 7:31 [...] Comment 11/06/2024 7:32 PM EDT [facility] Car Salesman ID Nelda Gerber 11/07/19 7:32 PM EDT [facility] Device ID [id number] 11/06/2024 7:32 PM EDT [facility] Specimen Type POC Capillary 11/06/2024 7:32 PM EDT [facility] Blood Capillary blood specimen / Unknown 11/06/2024 7:31 PM EDT 11/06/2024 7:32 PM EDT us Nathaly Nowak MD LAB POINT OF CARE TE ST DOCKED DEVICE UNSOLICITED RESULTS Final Result Performing Organization Address City/State/[facility] Co de Phone Number [facility] [address] [place] [address] * (ABNORMAL) POCT glucose meter (11/06/2024 6:15 PM EDT) [facility] POCT Glucose 368(H) 74 - 99 [...] Comment 11/06/2024 6:17 PM EDT [facility] Car Salesman ID Estefani Sheth 11/06/2024 6:17 PM EDT [facility] Device ID [id number] 11/06/2024 6:17 PM EDT [facility] Specimen Type POC Capillary 11/06/2024 6:17 PM EDT [facility] Blood Capillary blood specimen / Unknown 11/06/2024 6:15 PM EDT 11/06/2024 6:17 PM EDT Nathaly Nowak MD LAB POINT OF CARE TE ST DOCKED DEVICE UNSOLICITED RESULTS Final Result Performing Organization Address City/[facility]/ZIP Co de Phone Number [facility] [address] [place] [address] * (ABNORMAL) POCT glucose meter (11/06/2024 4:57 [...] Comment 11/06/2024 4:58 PM EDT [facility] Car Salesman ID Estefani Sheth 11/06/2024 4:58 PM EDT [facility] Device ID [id number] 11/06/2024 4:58 PM EDT [facility] Specimen Type POC Capillary 11/06/2024 4:58 PM EDT [facility] Blood Capillary blood specimen / Unknown 11/06/2024 4:57 PM EDT 11/06/2024 4:58 PM EDT us Nathaly Nowak MD LAB POINT OF CARE TE ST DOCKED DEVICE UNSOLICITED RESULTS Final Result Performing Organization Address City/[facility]/ZIP Co de Phone Number [facility] [address] [place] [address] * (ABNORMAL) POCT glucose meter (11/06/2024 2:08 [...] Comment 11/06/2024 2:09 PM EDT [facility] Car Salesman ID Brigitte Castellon 11/06/2024 2:09 PM EDT [facility] Device ID [id number] 11/06/2024 2:09 PM EDT [facility] Specimen Type POC Capillary 11/06/2024 2:09 PM EDT [facility] Blood Capillary blood specimen / Unknown 11/06/2024 2:08 PM EDT 11/06/2024 2:09 PM EDT us Nathaly Nowak MD LAB POINT OF CARE TE ST DOCKED DEVICE UNSOLICITED RESULTS Final Result Performing Organization Address City/State/[facility] Co de Phone Number [facility] [address] [place] [address] * (ABNORMAL) POCT glucose meter (11/06/2024 12:27 [...] Comment 11/06/2024 12:28 PM EDT [facility] Car Salesman ID Jacinta Galloway 11/06/2024 12:28 PM EDT [facility] Device ID [id number] 11/06/2024 12:28 PM EDT [facility] Specimen Type POC Capillary 11/06/2024 12:28 PM EDT [facility] Blood Capillary blood specimen / Unknown 11/06/2024 12:27 PM EDT 11/06/2024 12:28 PM EDT us Nathaly Nowak MD LAB POINT OF CARE TE ST DOCKED DEVICE UNSOLICITED RESULTS Final Result [facility] [address] [place] [address] * (ABNORMAL) Tissue Culture and Gram Stain (11/06/2024 11:34 AM EDT) Culture Moderate Growth 7:[address] [facility] Culture 2+ Enterobacter cloacae complex(A) ANGÉLICA 11/15/2024 7:[address] [facility] Comment: This isolate has been identified using the FDA Approved [employer] System The organism value for this result has been updated. These results have been appended to the previously preliminary verified report. Edited result: Previously reported as Gram Negative Jesus on 11/07/2024 at 1434 EDT. Culture 2+ Streptococcus mitis/oralis group(A) ANGÉLICA 11/15/2024 7:[address] [facility] Comment: This isolate has been identified using the FDA Approved [employer] [place] System The organism value for this result has been updated. These results have been appended to the previously preliminary verified report. Culture 2+ Pasteurella stomatis(A) ANGÉLICA 11/15/2024 7:[address] [facility] Comment: This result was determined by [employer]DI tof mass spectrometry using the [employer] database and is for research use only. The organism value for this result has been updated. These results have been appended to the previously preliminary verified report. Gram Stain Result Few Gram negative rods(A) 11/15/2024 7:[address] [facility] Gram Stain Result Moderate Polymorphonuclear leukocytes(A) 11/15/2024 7:[address] [facility] Gram Stain Result Few Gram positive cocci in pairs(A) 11/15/2024 7:[address] [facility] Tissue Topography unknown / Unknown 11/06/2024 11:34 AM EDT 11/06/2024 12:18 PM EDT Comment:Pre-op diagnosis: Surgical wound infection [T81.49XA] Narrative [facility] - 11/15/2024 7:35 AM EDT [...] ug/ml: Susceptible Enterobacter cloacae complex Trimethoprim/Sulfamethoxa zole AGNÉLICA <=0.5/9.5 ug/ml: Susceptible Comment: This organism may [...] ORDE LAM Edited Result - Final [facility] [address] [place] [address] * (ABNORMAL) Anaerobic Culture (11/06/2024 11:34 AM EDT) Culture No anaerobes isolated 11/14/2024 1:[address] [facility] Culture Staphylococcus pseudintermedius( A) 11/14/2024 1:[address] [facility] Comment: This result was determined by [employer]DI tof mass spectrometry using the [employer] database and is for research use only. This is an appended report. These results have been appended to a previously final verified report. Tissue Topography unknown / Unknown 11/06/2024 11:34 AM EDT 11/06/2024 12:18 PM EDT Comment:Pre-op diagnosis: Surgical wound infection [T81.49XA] Narrative [facility] - 11/14/2024 1:25 PM EDT [...] Organization Address [facility] Co de Phone Number [facility] [address] [place] [address] * (ABNORMAL) Routine Culture and Gram Stain (11/06/2024 11:29 AM EDT) Culture Moderate Growth 5:[address] [facility] Culture Enterobacter cloacae complex(A) 11/08/2024 5:[address] [facility] Comment: This isolate has been identified using the FDA Approved [employer] System For susceptibility results refer to: - [id number] The organism value for this result has been updated. These results have been appended to the previously preliminary verified report. Gram Stain Result No polymorphonuclear leukocytes seen 11/08/2024 5:[address] [facility] Gram Stain Result No organisms seen 11/08/2024 5:[address] [facility] Swab Topography unknown / Unknown 11/06/2024 11:29 AM EDT 11/06/2024 12:19 PM EDT Comment:Pre-op diagnosis: Surgical wound infection [T81.49XA] Nathaly Nowak MD LAB MICROBIOLOGY - GENERAL ATIYA FRITZ Final Result Performing Organization Address [facility] Co de Phone Number [facility] [address] [place] [address] * Fungal Culture, Routine (11/06/2024 11:29 AM EDT) Culture No Fungal Growth at 1 Week 11/13/2024 8:[address] [facility] Swab Topography unknown / Unknown 11/06/2024 11:29 AM EDT 11/06/2024 12:19 PM EDT Comment:Pre-op diagnosis: Surgical wound infection [T81.49XA] Nathaly Nowak MD [facility] Final Result [facility] [address] [place] [address] * (ABNORMAL) Anaerobic Culture (11/06/2024 11:29 AM EDT) Culture No anaerobes isolated 11/14/2024 1:[address] [facility] Culture Streptococcus mitis/oralis group(A) 11/14/2024 1:[address] [facility] Comment: This result was determined by [employer]DI tof mass spectrometry using the [employer] database and is for research use only. The organism value for this result has been updated. These results have been appended to the previously preliminary verified report. This is a corrected result. Previous organism was Mixed skin clifton on 11/10/2024 at 0718 EDT. Culture Staphylococcus pseudintermedius( A) 11/14/2024 1:[address] [facility] Comment: This isolate has been identified using the FDA Approved [employer] [place] System This is an appended report. These results have been appended to a previously final verified report. Swab Topography unknown / Unknown 11/06/2024 11:29 AM EDT 11/06/2024 12:19 PM EDT Comment:Pre-op diagnosis: Surgical wound infection [T81.49XA] Narrative [facility] - 11/14/2024 1:25 PM EDT [...] Organization Address [facility] Co de Phone Number [facility] [address] [place] [address] * Routine Culture and Gram Stain (11/06/2024 11:28 AM EDT) Culture No growth at day 4 2024 11:[address] [facility] Gram Stain Result No organisms seen 11/10/2024 11:[address] [facility] Gram Stain Result No polymorphonuclear leukocytes seen 11/10/2024 11:[address] [facility] Swab Topography unknown / Unknown 11/06/2024 11:28 AM EDT 11/06/2024 12:20 PM EDT Comment:Pre-op diagnosis: Surgical wound infection [T81.49XA] Nathaly Nowak MD LAB MICROBIOLOGY - GENERAL ORDE LAM Final Result Performing Organization Address [facility] Co de Phone Number [facility] [address] [place] [address] * Fungal Culture, Routine (11/06/2024 11:28 AM EDT) Culture No Fungal Growth at 1 Week 11/13/2024 8:[address] [facility] Swab Topography unknown / Unknown 11/06/2024 11:28 AM EDT 11/06/2024 12:20 PM EDT Comment:Pre-op diagnosis: Surgical wound infection [T81.49XA] Nathaly Nowak MD LAB MICROBIOLOGY - GENERAL ORDE LAM Final Result Performing Organization Address [facility] Co de Phone Number [facility] [address] [place] [address] * Anaerobic Culture (11/06/2024 11:28 AM EDT) Culture No growth at day 4 11/13/2024 12:[address] [facility] Swab Topography unknown / Unknown 11/06/2024 11:28 AM EDT 11/06/2024 12:20 PM EDT Comment:Pre-op diagnosis: Surgical wound infection [T81.49XA] Nathaly Nowak MD LAB MICROBIOLOGY - [facility] Final Result Performing Organization Address [facility] de Phone Number [facility] [address] [place] [address] * (ABNORMAL) POCT glucose meter (11/06/2024 10:16 [...] 11/06/2024 10:18 AM EDT [facility] Car Salesman ID Lacy Griffin 11/07/19 10:18 AM EDT [facility]ALTH[facility] Device ID [id number] 11/06/2024 10:18 AM EDT [facility] Specimen Type POC Capillary 11/06/2024 10:18 AM EDT [facility] Blood Capillary blood specimen / Unknown 11/06/2024 10:16 AM EDT 11/06/2024 10:18 AM EDT Nathaly Nowak MD LAB POINT OF CARE TE ST DOCKED DEVICE UNSOLICITED RESULTS Final Result Performing Organization Address [facility] de Phone Number [facility] [address] [place] [address] * (ABNORMAL) POCT glucose meter (11/06/2024 5:58 [...] for testing. Comment 11/06/2024 6:01 AM EDT [facility] Car Salesman ID Raj Laird 11/07/19 6:01 AM EDT [facility] Device ID [id number] 11/06/2024 6:01 AM EDT [facility] Specimen Type POC Capillary 11/06/2024 6:01 AM EDT [facility] Blood Capillary blood specimen / Unknown 11/06/2024 5:58 AM EDT 11/06/2024 6:01 AM EDT Nathaly Nowak MD LAB POINT OF CARE TE ST DOCKED DEVICE UNSOLICITED RESULTS Final Result Performing Organization Address City/[facility] Co de Phone Number [facility] [address] [place] [address] * (ABNORMAL) POCT glucose meter (11/06/2024 5:36 [...] Comment 11/06/2024 5:38 AM EDT [facility]ALTHCARE [facility] Car Salesman ID Shahid Sanches 11/06/2024 5:38 AM EDT HEALTHCARE LAB Device ID [id number] 11/06/2024 5:38 AM EDT HEALTHCARE LAB Specimen Type POC Capillary 11/06/2024 5:38 AM EDT [facility]ALTH[facility]ARE [facility] Blood Capillary blood specimen / Unknown 11/06/2024 5:36 AM EDT 11/06/2024 5:38 AM EDT us Nathaly Nowak MD LAB POINT OF CARE TE ST DOCKED DEVICE UNSOLICITED RESULTS Final Result Performing Organization Address [facility] Co de Phone Number [facility] [address] [place] [address] * (ABNORMAL) Hemoglobin A1c (11/06/2024 1:07 AM EDT) Hemoglobin A1c 7.6(H) <5.7 % 11/06/2024 11:[address] [facility] Blood Venous blood specimen / Unknown Venipuncture / Unknown 11/06/2024 1:07 AM EDT 11/06/2024 1:[address] [facility] - 11/06/2024 11:09 AM EDT [...] ORDERABLES Final Resu lt Performing Organization Address City/[facility]/ZIP Co de Phone Number [facility] [address] [place] [address] * Blood Culture (Aerobic/Anaerobet Set) (11/06/2024 1:07 AM EDT) Culture No growth at day 5 11/11/2024 2:[address] [facility] Blood Structure of right hand / Unknown Venipuncture / Unknown 11/06/2024 1:07 AM EDT 11/06/2024 2:36 AM EDT Nathaly Nowak MD LAB MICROBIOLOGY - GENERAL ORDE RABONEIDA Final Result Performing Organization Address [facility] Co de Phone Number [facility] [address] [place] [address] * Blood Culture (Aerobic/Anaerobet Set) (11/06/2024 1:07 AM EDT) Culture No growth at day 5 11/11/2024 3:[address] [facility] Blood Structure of antecubital vein / Unknown Venipuncture / Unknown 11/06/2024 1:07 AM EDT 11/06/2024 2:36 AM EDT Nathaly Nowak MD LAB MICROBIOLOGY - GENERAL ORDE LAM Final Result Performing Organization Address City/[facility] Co de Phone Number [facility] [address] [place] [address] * (ABNORMAL) Basic metabolic panel (11/06/2024 1:07 AM EDT) Glucose, Plasma 207(H) 74 - 99 mg/dL 11/06/2024 1:[address] [facility] BUN, Plasma 20 8 - 23 mg/dL 11/06/2024 1:[address] [facility] Creatinine, Plasma 0.92 0.70 - 1.20 mg/dL 11/06/2024 1:[address] [facility] BUN/Creatinine Ratio 22 11/06/2024 1:[address] [facility] Sodium, Plasma 136 136 - 145 mmol/L 11/06/2024 1:[address] [facility] Potassium, Plasma 4.5 3.6 - 4.9 mmol/L 11/06/2024 1:[address] [facility] Chloride, Plasma 104 97 - 107 mmol/L 11/06/2024 1:[address] [facility] CO2, Plasma 22 22 - 29 mmol/L 11/06/2024 1:[address] [facility] Anion Gap 10 6 - 16 mmol/L 11/06/2024 1:[address] [facility] Total Calcium, Plasma 9.0 8.9 - 10.2 mg/dL 11/06/2024 1:[address] [facility] eGFRcr 92.3 mL/min/1.7 3m*2 11/06/2024 1:[address] [facility] Comment:Reported eGFRcr in m L/min/1.73m2 is based the CKD-EPI 2020 equation that does not use a race coefficient. Blood Venous blood specimen / Unknown Venipuncture / Unknown 11/06/2024 1:07 AM EDT 11/06/2024 1:12 AM EDT us Nathaly Nowak MD LAB BLOOD ORDERABLES Final Resu lt [facility] [address] [place] [address] * Phosphorus (11/06/2024 1:07 AM EDT) Phosphorus, Plasma 3.2 2.5 - 4.5 mg/dL 11/06/2024 1:[address] [facility] Blood Venous blood specimen / Unknown Venipuncture / Unknown 11/06/2024 1:07 AM EDT 11/06/2024 1:12 AM EDT us Nathaly Nowak MD LAB BLOOD ORDERABLES Final Resu lt [facility] [address] [place] [address] * Magnesium (11/06/2024 1:07 AM EDT) Magnesium, Plasma 2.2 1.9 - 2.4 mg/dL 11/06/2024 1:[address] [facility] Blood Venous blood specimen / Unknown Venipuncture / Unknown 11/06/2024 1:07 AM EDT 11/06/2024 1:12 AM EDT us Nathaly Nowak MD LAB BLOOD ORDERABLES Final Resu lt [facility] [address] [place] [address] * (ABNORMAL) CBC (11/06/2024 1:07 AM EDT) WBC Count 9.70 3.70 - 10.30 10*3/uL LAB HEMATOLOGY METHOD 11/06/2024 1:[address] [facility] RBC Count 2.89(L) 4.60 - 6.10 10*6/uL LAB HEMATOLOGY METHOD 11/06/2024 1:[address] [facility] HGB 8.8(L) 13.7 - 17.5 g/dL LAB HEMATOLOGY METHOD 11/06/2024 1:[address] [facility] HCT 26.2(L) 40.0 - 51.0 % LAB HEMATOLOGY METHOD 11/06/2024 1:[address] [facility] Platelet Count 542(H) 155 - 369 10*3/uL LAB HEMATOLOGY METHOD 11/06/2024 1:[address] [facility] MCV 91 79 - 98 fL LAB HEMATOLOGY METHOD 11/06/2024 1:[address] [facility] MCH 30.4 26.0 - 32.0 pg LAB HEMATOLOGY METHOD 11/06/2024 1:[address] [facility] MCHC 33.6 30.7 - 35.5 g/dL LAB HEMATOLOGY METHOD 11/06/2024 1:[address] [facility] RDW 13.2 11.5 - 14.5 % LAB HEMATOLOGY METHOD 11/06/2024 1:[address] [facility] MPV 8.7(L) 8.8 - 12.5 fL LAB HEMATOLOGY METHOD 11/06/2024 1:[address] [facility] nRBC 0.0 <=0.0 per 100 WBCs LAB HEMATOLOGY METHOD 11/06/2024 1:[address] [facility] Blood Venous blood specimen / Unknown Venipuncture / Unknown 11/06/2024 1:07 AM EDT 11/06/2024 1:12 AM EDT us Nathaly Nowak MD LAB BLOOD ORDERABLES Final Resu lt Performing Organization Address City/[facility]/ZIP Co de Phone Number [facility] [address] [place] [address] * Gold Top (11/06/2024 12:58 AM EDT) Extra Hold for add-ons 11/06/2024 3:[address] [facility] Comment:Auto resulted. Blood Venous blood specimen / Unknown 11/06/2024 12:58 AM EDT 11/06/2024 1:13 AM EDT us Nathaly Nowak MD LAB BLOOD ORDERABLES Final Resu lt Performing Organization Address [facility]/ZIP Co de Phone Number [facility] [address] [place] [address] * Gold Top (11/06/2024 12:58 AM EDT) Extra Hold for add-ons 11/06/2024 3:[address] [facility] Comment:Auto resulted. Blood Venous blood specimen / Unknown 11/06/2024 12:58 AM EDT 11/06/2024 1:13 AM EDT us Nathaly Nowak MD LAB BLOOD ORDERABLES Final Resu lt Performing Organization Address City/[facility] Co de Phone Number [facility] [address] [place] [address] * Light Green Top (11/06/2024 12:58 AM EDT) Extra Hold for add-ons 11/06/2024 3:[address] [facility] Comment:Auto resulted. Blood Venous blood specimen / Unknown 11/06/2024 12:58 AM EDT 11/06/2024 1:13 AM EDT us Nathaly Nowak MD LAB BLOOD ORDERABLES Final Resu lt Performing Organization Address [facility]/ZIP Co de Phone Number [facility] [address] [place] [address] * Light Blue Top (11/06/2024 12:58 AM EDT) Extra Hold for add-ons 11/06/2024 3:[address] [facility] Comment:Auto resulted. Blood Venous blood specimen / Unknown 11/06/2024 12:58 AM EDT 11/06/2024 1:13 AM EDT us Nathaly Nowak MD LAB BLOOD ORDERABLES Final Resu lt Performing Organization Address [facility] Co de Phone Number [facility] [address] [place] [address] * Light Blue Top (11/06/2024 12:58 AM EDT) Extra Hold for add-ons 11/06/2024 3:[address] [facility] Comment:Auto resulted. Blood Venous blood specimen / Unknown 11/06/2024 12:58 AM EDT 11/06/2024 1:13 AM EDT Result [facility] Nathaly Nowak MD LAB BLOOD ORDERABLES Final Resu lt Performing Organization Address [facility] de Phone Number [facility] [address] [place] [address] * (ABNORMAL) POCT glucose meter (11/06/2024 12:45 AM EDT) POCT Glucose 204(H) 74 - 99 mg/dL 11/06/2024 12:48 AM EDT [facility] Comment:Accuracy of a glucos e [...] Comment 11/06/2024 12:48 AM EDT HEALTHCARE LAB Car Salesman ID Raj Laird 11/07/19 12:48 AM EDT HEALTHCARE LAB Device ID [id number] 11/06/2024 12:48 AM EDT HEALTHCARE LAB Specimen Type POC Capillary 11/06/2024 12:48 AM EDT HEALTHCARE LAB Blood Capillary blood specimen / Unknown 11/06/2024 12:45 AM EDT 11/06/2024 12:48 AM EDT us Nathaly Nowak MD LAB POINT OF CARE TE ST DOCKED DEVICE UNSOLICITED RESULTS Final Result [facility] [address] [place] [phone] documented in this encounter Visit Diagnoses Diagnosis [...] needed, Starting on Mon11/06/24 at 0031, Until [facility] 11/14/24 at 1804, Routine, line care [...] needed, Starting on Mon11/06/24 at 0753, Until [facility] 11/14/24 at 1804, Routine, On Unit [...] Routine 0917 (Not Given - Provider: Devora oB - Reason: Order parameters not met - [...] not met)[id number] (Not Given - Provider: Jonathan aVle RN [...] documented as of this encounter Care Teams Landscaping Crew Leader Relationship Specialty Start Date End Date Asad Victor MD [address] [place] [address] PCP - General 10/07/22 documented as of this encounter
--- OUTSIDE RECORDS SUMMARY | 2024-11-06 10:47 | XMS_ITS | Encounter Summary ---
Author Organization Healthcare Address [address] [place] [address] Care Team Providers Care Production Machinist Name Role Phone Asad Victor MD Primary Care Provider + [phone] Reason for Visit * Auth/Cert (Routine) Specialty Diagnoses / Procedures Referred By Contac t Referred To Contact Diagnoses Wound infection Post-op Vasc Sx wounds - sx on 10/17 at Nathaly Nowak MD [address] [facility] [address] [place] [address] Phone: tel: fax: [facility] Emergency Department [address] [place] [address] Phone: tel: Referral ID Status Reason Start Date Expiration Date Visits Re quested Visits Authorized [id number] 1 1 Encounter Details Date Type Department Care Team (Late st Contact Info) Description 11/06/2024 10:47 AM EDT Anesthesia Event [facility] OPERATING ROOM [address] [place] [address] Bill Sue MD [address] [place] [address] Sabrina Mckeon PA [address] [facility] [address] [place] [address] Anesthesia Record Procedure Summary Procedure [...] any time in the past 12 m [facility], were you homeless or [...] drink first t dino in the morning (EYE-INSTRUCTIONAL DESIGNER) to steady your nerves or to get [...] and Staff Patient location during procedure: OR DIRECTOR OF REHABILITATIVE SERVICES: Asad Lechuga CRNA, DNP Performed: DIRECTOR OF REHABILITATIVE SERVICES Patient Condition Indications for airway management: anesthesia [...] placement (Left) Location: [facility] OR 16 / [place] OR Surgeons: Nathaly Nowak MD [facility] Mono Ana Bobby is a 64 [...] Abnormal Ventricular Rate 85 Atrial Rate 85 [place] Interval 146 QRSD Interval 128 QT Interval 390 QTC Interval 464 P [place] 52 R [place] 263 T Wave [place] 57 Diagnosis Atrial-sensed ventricular-paced rhythm Diagnosis Biventricular [...] is no recent study available for direct nrcx-jz-sthx comparison. [facility]: Pre-operative CIED Report Assessment and Sara- Procedural Reommendations: Name: Mono Bobby Date: 10/17/2024 : 1960 Age: 64 y.o. Patient has a Heavy Media Operator: Berger IT SPECIALIST-PM Remaining battery longevity adequate. Lead integrity [...] CEA 2016), dysrhythmias (3rd degree AV block IT SPECIALIST-P placed 08/2023 for Wenkeback with 11 sec pause), hyperlipidemia, pacemaker and PVD. Does not have angina, CHF, murmur, orthopnea, syncope or valvular heart disease. hypertension: Cardio additional comments: Follows with OSH Card last seen 09/25/24 ([place]) . Respiratory: home oxygen (2L). no asthma: [...] ENDARTERECTOMY N/A 2017 Endarterectomy Carotid Artery from [facility] CORONARY ANGIOPLASTY Left Coronary Angiography With Concomitant Left Heart Catheterization from [facility] CORONARY ARTERY BYPASS GRAFT N/A 2018 3V ELBOW SURGERY Right ENDARTERECTOMY Left 10/17/2024 common/SFA/Profunda thromboendarterectomy, EIA/LOOP TENDER stent HERNIA REPAIR KNEE ARTHROSCOPY Left VASCULAR SURGERY Left 09/21/2024 LOOP TENDER pseudoaneurym injection [5] Social History Tobacco Use [...] Description 11/26/2024 2:00 PM EDT Hospital Encounter [facility] Vascular Lab [address] [place] [address] 11/26/2024 2:30 PM EDT Hospital Encounter [facility] Vascular Lab [address] [place] [address] 11/26/2024 3:20 PM EDT Office Visit [facility] [address] [place] [address] Elisabet Schuster PA [address] [facility] [address] [place] [address] 11/29/2024 2:30 PM EDT Office Visit [place] [address] [place] [address] Oscar Appiah MD [address] [facility] [address] [place] [address] documented as of this encounter Goals Goal Patient Goal Type Associated Problems Recent Progress Patient-Stated? Author Autogenera louise Goal Care Plan Autogenerated Problem No Ekta Arnett documented as of this encounter Procedures Procedure Name Priority Date/Time Associated Diagnosis Comments PB ANESTHESIA PLACEHOLDER Routine 11/06/2024 10:58 AM EDT [place] AN ELECTIVE ENDOTRACHEAL AIRWAY Routine 11/06/2024 10:58 AM EDT documented in this encounter Results * [place] AN ELECTIVE ENDOTRACHEAL AIRWAY, PB ANESTHESIA PLACEHOLDER (11/06/2024 10:58 AM EDT) Narrative Asad Lechuga CRNA, DNP - 11/06/2024 10:58 AM EDT Asad Lechuga CRNA, DNP 11/06/2024 11:05 AM Airway Date/Time: 11/06/2024 10:58 AM Reason: elective Airway not difficult General Information and Staff Patient location during procedure: OR DIRECTOR OF REHABILITATIVE SERVICES: Asad Lechuga CRNA, DNP Performed: ISH Patient [...] documented as of this encounter Care Teams Production Machinist Relationship Specialty Start Date End Date Asad Victor MD [address] [place] [address] PCP - General 10/07/22 documented as of this encounter
--- OUTSIDE RECORDS SUMMARY | 2024-11-18 13:10 | XMS_ITS | Encounter Summary ---
Author Organization [employer] ([place], [place], [place], [place]) Address [address] [place] [address] Care Team Providers Care Health Counselor Name Role Phone Unavailable Primary Care Provider Unavailabl e Reason for Visit * Reason Comments Wound Care Encounter Details Date Type Department Care Team (Late st Contact Info) Description 11/18/2024 1:10 PM EDT Office Visit [facility] 1 [place] [address] Jerry Monroe Jr., MD [address] [place] [address] Non-pressure chronic ulcer of skin of [...] health nurse( if you have home health) [facility] for an appointment. documented in this [...] upper leg. Patient was admitted to the [facility] on November 05, 2024 and dischargedon [...] line. Patient is getting daily infusions at [facility] through his PICC line for [...] provider verified the correct patient, procedure, equipment, software support specialist, and site/side marked as required. Debridement Details [...] provider verified the correct patient, procedure, equipment, software support specialist, and site/side marked as required. Debridement Details [...] Description 11/27/2024 2:20 PM EDT Office Visit [facility] [place] 1 [place] [address] Jerry Monroe Jr., MD [address] [place] [address] 11/29/2024 4:00 PM EDT Clinical Support [facility] [address] [address] 12/02/2024 2:15 PM EDT Clinical Support [facility] [address] [address] 12/04/2024 3:10 PM EDT Office Visit [address] [address] Jerry Monroe Jr., MD [address] [place] [address] 12/06/2024 4:15 PM EDT Clinical Support [facility] [address] [address] 12/09/2024 3:30 PM EDT Clinical Support [facility] [address] [address] 12/11/2024 2:40 PM EDT Office Visit [facility] [address] [address] Jerry Monroe Jr., MD [address] [place] [address] 12/13/2024 3:30 PM EDT Clinical Support [facility] 1 [place] [address] 12/16/2024 3:30 PM EDT Clinical Support [facility] 1 [place] [address] 12/18/2024 3:00 PM EDT Office Visit [facility] [place] 1 [place] [address] Jerry Monroe Jr., MD [address] [place] [address] 12/20/2024 3:30 PM EDT Clinical Support 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) Localized tissue (HCC) Other specified local infections of the skin and subcutaneous tissue [place] DEBRIDEMENT MUSCLE &/FASCIA 1ST 20 SQ CM/< Routine 11/18/2024 1:10 PM EDT 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) Localized tissue (HCC) Other specified local infections of the skin and subcutaneous tissue [place] DEBRIDEMENT MUSCLE &/FASCIA EA ADDL 20 SQ CM Routine 11/18/2024 1:10 PM EDT 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) Localized tissue (HCC) Other specified local infections of the skin and subcutaneous tissue [place] DEBRIDEMENT MUSCLE &/FASCIA EA ADDL 20 SQ CM Routine 11/18/2024 1:10 PM EDT 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) Localized tissue (HCC) Other specified local infections of the skin and subcutaneous tissue [place] DEBRIDEMENT MUSCLE &/FASCIA 1ST 20 SQ CM/< Routine 11/18/2024 1:10 PM EDT 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 Debridement Details [...] MD PROCEDURE/MINOR SURGICAL ORDERABLES Final Result * [place] DEBRIDEMENT MUSCLE &/FASCIA 1ST 20 SQ CM/<, [place] DEBRIDEMENT MUSCLE &/FASCIA EA ADDL 20SQ CM, [place] DEBRIDEMENT MUSCLE &/FASCIA EA ADDL 20 SQ [...] provider verified the correct patient, procedure, equipment, software support specialist, and site/side marked as required. Debridement Details [...]
--- OUTSIDE RECORDS SUMMARY | 2024-11-20 14:15 | XMS_ITS | Encounter Summary ---
Author Organization [employer] ([place], [place], [place], [place]) Address [address] [place] [address] Care Team Providers Care Driver Wheelchair Name Role Phone Unavailable Primary Care Provider Unavailabl e Reason for Visit * Reason Comments Wound Care Nurse visit for woun d vac change, wound care and dressing change Encounter Details Date Type Department Care Team (Late st Contact Info) Description 11/20/2024 2:15 PM EDT Clinical Support [facility] 1 [place] [address] Jerry Monroe Jr., MD [address] [place] [address] Non-pressure chronic ulcer of skin of [...] Description 11/27/2024 2:20 PM EDT Office Visit [facility] [place] 1 [place] [address] Jerry Monroe Jr., MD [address] [place] [address] 11/29/2024 4:00 PM EDT Clinical Support [facility] 1 [place] [address] 12/02/2024 2:15 PM EDT Clinical Support [facility] 1 [place] [address] 12/04/2024 3:10 PM EDT Office Visit [facility] 1 [place] [address] Jerry Monroe Jr., MD [address] [place] [address] 12/06/2024 4:15 PM EDT Clinical Support [facility] 1 [place] [address] 12/09/2024 3:30 PM EDT Clinical Support [facility] 1 [place] [address] 12/11/2024 2:40 PM EDT Office Visit [facility] 1 [place] [address] Jerry Monroe Jr., MD [address] [place] [address] 12/13/2024 3:30 PM EDT Clinical Support [facility] 1 [place] [address] 12/16/2024 3:30 PM EDT Clinical Support [facility] [place] 1 [place] [address] 12/18/2024 3:00 PM EDT Office Visit [facility] 1 [place] [address] Jerry Monroe Jr., MD [address] [place] [address] 12/20/2024 3:30 PM EDT Clinical Support [facility] 1 [place] [address] documented as of this encounter Results * Wound Treatment (11/22/2024 5:14 PM EDT) us Jerry Monroe Jr., MD NURSING PATHWAYS ORDERABL ES Final Result documented in this encounter Visit Diagnoses Diagnosis 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
--- OUTSIDE RECORDS SUMMARY | 2024-11-22 16:15 | XMS_ITS | Encounter Summary ---
Author Organization [employer] ([place], [place], [place], [place]) Address [address] [place] [address] Care Team Providers Care Tool Mechanic Name Role Phone Unavailable Primary Care Provider Unavailabl e Reason for Visit * Reason Comments Wound Care Encounter Details Date Type Department Care Team (Late st Contact Info) Description 11/22/2024 4:15 PM EDT Clinical Support [facility] 1 [place] [address] Jerry Monroe Jr., MD [address] [place] [address] Non-pressure chronic ulcer of skin of [...] Description 11/27/2024 2:20 PM EDT Office Visit [facility] [place] 1 [place] [address] Jerry Monroe Jr., MD [address] [place] [address] 11/29/2024 4:00 PM EDT Clinical Support [facility] 1 [place] [address] 12/02/2024 2:15 PM EDT Clinical Support [facility] [place] 1 [place] [address] 12/04/2024 3:10 PM EDT Office Visit [facility] [place] 1 [place] [address] Jerry Monroe Jr., MD [address] [place] [address] 12/06/2024 4:15 PM EDT Clinical Support [facility] [place] 1 [place] [address] 12/09/2024 3:30 PM EDT Clinical Support [facility] 1 [place] [address] 12/11/2024 2:40 PM EDT Office Visit [facility] 1 [place] [address] Jerry Monroe Jr., MD [address] [place] [address] 12/13/2024 3:30 PM EDT Clinical Support [address] [address] 12/16/2024 3:30 PM EDT Clinical Support [address] [address] 12/18/2024 3:00 PM EDT Office Visit [address] [address] Jerry Monroe Jr., MD [address] [place] [address] 12/20/2024 3:30 PM EDT Clinical Support [address] [address] documented as of this encounter Procedures Procedure [...]
--- OUTSIDE RECORDS SUMMARY | 2024-11-25 08:25 | XMS_ITS | Encounter Summary ---
Author Organization Healthcare Address [address] [id number] Care Team Providers Care Automatic Spooler Operator Name Role Phone Asad Victor MD Primary Care Provider + [phone] Reason for Visit * Reason Onset Date Comments HCN Clinical Concern/Question 11/15/2024 Encounter Details Date Type Department Care Team (Late st Contact Info) Description 11/15/2024 Telephone [facility] [address] [facility] 5th Floor [address], [address] [place] [address] Nathaly Nowak MD [address] [facility] [address] [place] [address] HCN Clinical Concern/Question Social History [...] drink first t dino in the morning (EYE-ENROLLMENT ADVISOR) to steady your nerves or to [...] with info. Thank you Best contact number: [phone] (mobile) Optimal time of day to reach caller: ANYTIME Additional comments/information from caller: None Note: Please do not reply to this message. Follow-up communication and further actions as a result of this message need to be communicated with the patient directly, if the patient is not active onMyChart. If the patient is active on MyChart, they will receive notification of the communication/outcome via [employer]. documented in this encounter Plan of Treatment Upcoming Encounters Date Type Department Care Team (Late st Contact Info) Description 11/26/2024 2:00 PM EDT Hospital Encounter [facility] [address] [place] [address] 11/26/2024 2:30 PM EDT Hospital Encounter [facility] [address] [place] [address] 11/26/2024 3:20 PM EDT Office Visit [facility] [address] [facility] 5th Floor [address] [place] [address] Elisabet Schuster PA [address] [facility] [address] [place] [address] 11/29/2024 2:30 PM EDT Office Visit [facility] [address] [place] [address] Oscar Appiah MD [address] [facility] [address] [place] [address] documented as of this encounter Goals Goal [...] documented as of this encounter Care Teams Automatic Spooler Operator Relationship Specialty Start Date End Date Asad Victor MD [address] [place] [address] PCP - General 10/07/22 documented as of this encounter
--- OUTSIDE RECORDS SUMMARY | 2024-11-25 08:25 | XMS_ITS | Encounter Summary ---
Author Organization [facility] Address [address] [place] [place] [address] Care Team Providers Care Senior Climate Advisor Name Role Phone Asad Victor MD Primary Care Provider + [phone] Encounter Details Date Type Department Care Team [...] drink first t dino in the morning (EYE-M48/M60 TANK DRIVER) to steady your nerves or to [...] [facility] [address] 5th Floor [address], [address] [place] [address] 11/26/2024 2:30 PM EDT Hospital Encounter [facility] [address] 5th Floor [address] [place] [address] 11/26/2024 3:20 PM EDT Office Visit [facility] [address] 5th Floor [address] [place] [address] Elisabet Schuster, PA [address] [place] [address] 11/29/2024 2:30 PM EDT Office Visit [facility] [address] [facility] [place] [address] Oscar Appiah MD [address] [facility] [address] [place] [address] documented as of this encounter [...] as of this encounter Care Teams Senior Climate Advisor Relationship Specialty Start Date End Date Asad Victor MD [address] [place] [address] PCP - General 10/07/22 documented as of this encounter
--- OUTSIDE RECORDS SUMMARY | 2024-11-25 08:26 | XMS_ITS | Encounter Summary ---
Author Organization Healthcare Address [address] [id number] Care Team Providers Care Oven Worker Name Role Phone Asad Victor MD Primary Care Provider + [phone] Encounter Details Date Type Department Care Team (Late st Contact Info) Description 10/22/2024 Telephone Vascular Surgery [address] [place] [address] Alison Beltrán, STRUCTURAL IRON WORKER, DNP [address] [facility] [address] [place] [address] Social History Tobacco Use Types Packs/Day Years [...] drink first t dino in the morning (EYE-GLOBAL CTO) to steady your nerves or to get [...] Notes * Telephone Encounter - Alison Beltrán, STRUCTURAL IRON WORKER, DNP - 10/22/2024 11:39 AM EDT Returned patient call. Patient s/p left common/superficial/profunda femoral thromboendarterectomy with bovine patch repair and left external iliac artery/BREAD MOLDER stent with Dr Gautam on 10/17/24. Patient [...] [facility] [address] [place] [address] 11/26/2024 2:30 PM EDT Hospital Encounter [facility] [address] [place] [address] 11/26/2024 3:20 PM EDT Office Visit [facility] [address] [place] [address] Elisabet Schuster, GLENDA [address] [facility] [address] [place] [address] 11/29/2024 2:30 PM EDT Office Visit [facility] [address] [place] [address] Oscar Appiah MD [address] [facility] [address] [place] [address] documented as of this encounter [...] documented as of this encounter Care Teams Oven Worker Relationship Specialty Start Date End Date Asad Victor MD [address] [place] [address] PCP - General 10/07/22 documented as of this encounter
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
--- OUTSIDE RECORDS SUMMARY | 2024-11-25 08:26 | XMS_ITS | Encounter Summary ---
Author Organization [facility] Address [address] [place] [address] Care Team Providers Care Math Specialist Name Role Phone Asad Victor MD Primary Care Provider + [phone] Encounter Details Date Type Department Care Team [...] drink first t dino in the morning (EYE-CORPORATE LOGISTICS MANAGER) to steady your nerves or to [...] Description 11/26/2024 2:00 PM EDT Hospital Encounter [facility] [address] 5th Floor [address] [place] [address] 11/26/2024 2:30 PM EDT Hospital Encounter [facility] [address] 5th Floor [address] [place] [address] 11/26/2024 3:20 PM EDT Office Visit [facility] [address] 5th Floor [address] [place] [address] Elisabet Schuster, PA [address] [place] [address] 11/29/2024 2:30 PM EDT Office Visit [facility] [address] [facility] [place] [address] Oscar Appiah MD [address] [facility] [address] [place] [address] documented as of this encounter [...] documented as of this encounter Care Teams Math Specialist Relationship Specialty Start Date End Date Asad Victor MD [address] [place] [address] PCP - General 10/07/22 documented as of this encounter
--- OUTSIDE RECORDS SUMMARY | 2024-11-25 08:27 | XMS_ITS | Referral Summary ---
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) 11/18/2024 Travel 11/18/2024 1:10 PM EDT Office Visit [facility] [place] [address] [place] [address] Jerry Monroe Jr., MD Non-pressure [...] Description 11/27/2024 2:20 PM EDT Office Visit [facility] 1 [place] [address] Jerry Monroe Jr., MD [address] [place] [address] 11/29/2024 4:00 PM EDT Clinical Support [facility] 1 [place] [address] 12/02/2024 2:15 PM EDT Clinical Support [address] [address] 12/04/2024 3:10 PM EDT Office Visit [address] [address] Jerry Monroe Jr., MD [address] [place] [address] 12/06/2024 4:15 PM EDT Clinical Support [address] [address] 12/09/2024 3:30 PM EDT Clinical Support [address] [address] 12/11/2024 2:40 PM EDT Office Visit [address] [address] Jerry Monroe Jr., MD [address] [place] [address] 12/13/2024 3:30 PM EDT Clinical Support [address] [address] 12/16/2024 3:30 PM EDT Clinical Support [facility] 1 [place] [address] 12/18/2024 3:00 PM EDT Office Visit [facility] 1 [place] [address] Jerry Monroe Jr., MD [address] [place] [address] 12/20/2024 3:30 PM EDT Clinical Support [facility] 1 [place] [address] Procedures Procedure Name Priority Date/Time Associated Diagnosis Comments WOUND TREATMENT Routine 11/22/2024 5:14 PM EDT 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 Debridement Details [...] provider verified the correct patient, procedure, equipment, senior office support assistant sosa, and site/side marked as required. Debridement Details [...] Final Result from Last 3 Months Insurance [facility] AD[place] DUAL COMPLETE [place]
--- OUTSIDE RECORDS SUMMARY | 2024-11-25 08:27 | XMS_ITS | Encounter Summary ---
Author Organization [facility] Address [address] [place] [address] Care Team Providers Care Automobile Body Repair Chief Name Role Phone Asad Victor MD Primary Care Provider + [phone] Encounter Details Date Type Department Care Team [...] drink first t dino in the morning (EYE-PUMPING SUPERVISOR) to steady your nerves or to [...] 1 Month) No 025 2:00 PM EDT [place], Brigitte E, RN 2. Non-Specific Active Suici [...] [facility] [address] [place] [address] 11/26/2024 2:30 PM EDT Hospital Encounter [facility] [address] [place] [address] 11/26/2024 3:20 PM EDT Office Visit [facility] [address] [facility] 5th Floor Wing D, [address] [place] [address] Elisabet Schuster, PA [address] [place] [address] 11/29/2024 2:30 PM EDT Office Visit [place] [address] [place] [address] Oscar Appiah MD [address] [place] [address] [address] [place] [address] documented as of this encounter [...] documented as of this encounter Care Teams Automobile Body Repair Chief Relationship Specialty Start Date End Date Asad Victor MD [address] [place] [address] PCP - General 10/07/22 documented as of this encounter
--- OUTSIDE RECORDS SUMMARY | 2024-11-25 08:27 | XMS_ITS | Encounter Summary ---
Author Organization Healthcare Address [address] [place] [address] Care Team Providers Care Guest Relations Coordinator Name Role Phone Asad Victor MD Primary Care Provider + [phone] Encounter Details Date Type Department Care Team (Late st Contact Info) Description 11/05/2024 Orders Only External Location [address] [place] [address] Provider, External Social History Tobacco Use Types [...] first t dino in the morning (EYE-LICENSED PROSTHETIST) to steady your nerves or to get rid of a hangover? 0 10/18/2021 CAGE Questionnaire Score 0 022 Utilities Answer Date Recorded In the past 12 months has th e [employer], gas, oil, or water company threatened to [...] Encounter [facility] [address] [facility] 5th Floor Wing [address], [address] [place] [address] 11/26/2024 2:30 PM EDT Hospital Encounter [facility] [address] [facility] 5th Floor [address] [place] [address] 11/26/2024 3:20 PM EDT Office Visit [facility] [address] 5th Floor [address] [place] [address] Elisabet Schuster PA [address] [place] [address] 11/29/2024 2:30 PM EDT Office Visit [facility] [address] [place] [address] Oscar Appiah MD [address] [facility] [address] [place] [address] documented as of this encounter [...] documented as of this encounter Care Teams Guest Relations Coordinator Relationship Specialty Start Date End Date Asad Victor MD [address] [place] [address] PCP - General 10/07/22 documented as of this encounter
--- OUTSIDE RECORDS SUMMARY | 2024-11-25 08:27 | XMS_ITS | Encounter Summary ---
Author Organization Healthcare Address [address] [place] [address] Care Team Providers Care Outboard Motor Mechanic Name Role Phone Asad Victor MD Primary Care Provider + [phone] Encounter Details Date Type Department Care Team (Late st Contact Info) Description 10/17/2024 Orders Only External Location [address] [place] [address] Provider, External Social History Tobacco Use Types [...] in the past 12 m [facility], were you homeless or living [...] first t dino in the morning (EYE-DIRECTOR SANITATION BUREAU) to steady your nerves or to get rid of a hangover? 0 10/18/2021 CAGE Questionnaire Score 0 022 Utilities Answer Date Recorded In the past 12 months has th e [employer], gas, oil, or water [employer] threatened to shut off services in your [...] Description 11/26/2024 2:00 PM EDT Hospital Encounter [facility] [address] [facility] 5th Floor Wing D, [address] [place] [address] 11/26/2024 2:30 PM EDT Hospital Encounter [facility] [address] [facility] 5th Floor Wing [address], [address] [place] [address] 11/26/2024 3:20 PM EDT Office Visit [facility] [address] [facility] 5th Floor Wing [address] [place] [address] Elisabet Schuster PA [address] [place] [address] 11/29/2024 2:30 PM EDT Office Visit [facility] [address] [place] [address] Oscar Appiah MD [address] [facility] [address] [place] [address] documented as of this encounter [...] documented as of this encounter Care Teams Outboard Motor Mechanic Relationship Specialty Start Date End Date Asad Victor MD [address] [place] [address] PCP - General 10/07/22 documented as of this encounter
--- OUTSIDE RECORDS SUMMARY | 2024-11-25 08:27 | XMS_ITS | Encounter Summary ---
Author Organization [facility] Address [address] [place] [address] Care Team Providers Care Gift Consultant Name Role Phone Asad Victor MD Primary Care Provider + [phone] Encounter Details Date Type Department Care Team [...] first t dino in the morning (EYE-BUSINESS INTELLIGENCE ADMINISTRATOR) to steady your nerves or to get [...] Description 11/26/2024 2:00 PM EDT Hospital Encounter [facility] Lab [address] [place] [address] 11/26/2024 2:30 PM EDT Hospital Encounter [facility] [address] 5th Floor [address], [address] [place] [address] 11/26/2024 3:20 PM EDT [facility] [address] Floor [address] [place] [address] Elisabet Schuster, PA [address] [facility] [address] [place] [address] 11/29/2024 2:30 PM EDT Office Visit [facility] [address] [facility] [place] [address] Oscar Appiah MD [address] [facility] [address] [place] [address] documented as of this encounter [...] documented as of this encounter Care Teams Gift Consultant Relationship Specialty Start Date End Date Asad Victor MD [address] [place] [address] PCP - General 10/07/22 documented as of this encounter
--- OUTSIDE RECORDS SUMMARY | 2024-11-25 08:27 | XMS_ITS | Encounter Summary ---
Author Organization [facility] ([place], [place], [place], [place]) Address [address] [place] [address] Care Team Providers Care Architectural Technologist Name Role Phone Unavailable Primary Care Provider [...] Description 11/27/2024 2:20 PM EDT Office Visit [facility] [place] [address] [place] [address] Jerry Monroe Jr., MD [address] [place] [address] 11/29/2024 4:00 PM EDT Clinical Support [facility] Care [address] [address] 12/02/2024 2:15 PM EDT Clinical Support [facility] [place] [address] [place] [address] 12/04/2024 3:10 PM EDT Office Visit [facility] 1 [place] [address] Jerry Monroe Jr., MD [address] [place] [address] 12/06/2024 4:15 PM EDT Clinical Support [facility] 1 [place] [address] 12/09/2024 3:30 PM EDT Clinical Support [facility] [place] [address] [place] [address] 12/11/2024 2:40 PM EDT Office Visit [facility] 1 [place] [address] Jerry Monroe Jr., MD [address] [place] [address] 12/13/2024 3:30 PM EDT Clinical Support [facility] 1 [place] [address] 12/16/2024 3:30 PM EDT Clinical Support [facility] 1 [place] [address] 12/18/2024 3:00 PM EDT Office Visit [facility] 1 [place] [address] Jerry Monroe Jr., MD [address] [place] [address] 12/20/2024 3:30 PM EDT Clinical Support [facility] 1 [place] [address] documented as of this encounter Visit Diagnoses Not on filedocumented in this encounter
--- OUTSIDE RECORDS SUMMARY | 2024-11-25 08:27 | XMS_ITS | Clinical Summary ---
Author Organization [facility] ([place], [place], [place], [place]) Address [address] [place] [address] Care Team Providers Care Credentialing Assistant Name Role Phone Unavailable Primary Care [...] 11/22/2024 4:15 PM EDT Clinical Support 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 [place] [address] [place] [address] Jerry Monroe Jr., MD Non-pressure chronic ulcer [...] Description 11/27/2024 2:20 PM EDT Office Visit [facility] 1 [place] [address] Jerry Monroe Jr., MD [address] [place] [address] 11/29/2024 4:00 PM EDT Clinical Support [facility] 1 [place] [address] 12/02/2024 2:15 PM EDT Clinical Support [address] [address] 12/04/2024 3:10 PM EDT Office Visit [address] [address] Jerry Monroe Jr., MD [address] [place] [address] 12/06/2024 4:15 PM EDT Clinical Support [address] [address] 12/09/2024 3:30 PM EDT Clinical Support [address] [address] 12/11/2024 2:40 PM EDT Office Visit [address] [address] Jerry Monroe Jr., MD [address] [place] [address] 12/13/2024 3:30 PM EDT Clinical Support [address] [address] 12/16/2024 3:30 PM EDT Clinical Support [facility] 1 [place] [address] 12/18/2024 3:00 PM EDT Office Visit [facility] 1 [place] [address] Jerry Monroe Jr., MD [address] [place] [address] 12/20/2024 3:30 PM EDT Clinical Support 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) Localized tissue (HCC) Other specified local infections of the skin and subcutaneous tissue [place] DEBRIDEMENT MUSCLE &/FASCIA EA ADDL 20 SQ CM Routine 11/18/2024 1:10 PM EDT 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) Localized tissue (HCC) Other specified local infections of the skin and subcutaneous tissue [place] DEBRIDEMENT MUSCLE &/FASCIA 1ST 20 SQ CM/< Routine 11/18/2024 1:10 PM EDT 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) Localized tissue (HCC) Other specified local infections of the skin and subcutaneous tissue [place] DEBRIDEMENT MUSCLE &/FASCIA EA ADDL 20 SQ CM Routine 11/18/2024 1:10 PM EDT 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) Localized tissue (HCC) Other specified local infections of the skin and subcutaneous tissue [place] DEBRIDEMENT MUSCLE &/FASCIA EA ADDL 20 SQ CM Routine 11/18/2024 1:10 PM EDT 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) Localized tissue (HCC) Other specified local infections of the skin and subcutaneous tissue [place] DEBRIDEMENT MUSCLE &/FASCIA 1ST 20 SQ CM/< Routine 11/18/2024 1:10 PM EDT 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 [...] MD PROCEDURE/MINOR SURGICAL ORDERABLES Final Result * [place] DEBRIDEMENT MUSCLE &/FASCIA 1ST 20 SQ CM/<, [place] DEBRIDEMENT MUSCLE &/FASCIA EA ADDL 20SQ CM, [place] DEBRIDEMENT MUSCLE &/FASCIA EA ADDL 20 SQ [...] provider verified the correct patient, procedure, equipment, instructional support specialist, and site/side marked as required. [...] from Last 3 Months Insurance [facility] ADV DUAL COMPLETE MEDICAID OF [place]
--- OUTSIDE RECORDS SUMMARY | 2024-11-25 08:30 | XMS_ITS | Encounter Summary ---
Author Organization Healthcare Address [address] [place] [address] Care Team Providers Care Vacuum Truck Driver Name Role Phone Asad Victor MD Primary Care Provider + [phone] Encounter Details Date Type Department Care Team (Late st Contact Info) Description 11/15/2024 Clinical Support [facility] [id number] [place] [address] Charly Orlando, PharmD [address] [place] [address] [address] [place] [address] Social History Tobacco Use Types [...] drink first t dino in the morning (EYE-CHROMIUM PLATER) to steady your nerves or to get rid of a hangover? 0 10/18/2021 CAGE Questionnaire Score 0 022 Utilities Answer Date Recorded In the past 12 months has th e [employer], gas, oil, or water company threatened to [...] Encounter [facility] [address] 5th Floor [address] [place] [address] 11/26/2024 2:30 PM EDT Hospital Encounter [facility] [address] 5th Floor [address] [place] [address] 11/26/2024 3:20 PM EDT Office Visit [facility] [address] 5th Floor [address] [place] [address] Elisabet Schuster PA [address] [place] [address] 11/29/2024 2:30 PM EDT Office Visit [facility] [address] [facility] [place] [address] Oscar Appiah MD [address] [facility] [address] [place] [address] documented as of this encounter [...] documented as of this encounter Care Teams Vacuum Truck Driver Relationship Specialty Start Date End Date Asad Victor MD [address] [place] [address] PCP - General 10/07/22 documented as of this encounter
--- OUTSIDE RECORDS SUMMARY | 2024-11-25 08:31 | XMS_ITS | Encounter Summary ---
Author Organization [employer] ([place], [place], [place], [place]) Address [address] [place] [address] Care Team Providers Care Eyedotter Name Role Phone Unavailable Primary Care Provider [...] Description 11/27/2024 2:20 PM EDT Office Visit [facility] [place] [address] [place] [address] Jerry Monroe Jr., MD [address] [place] [address] 11/29/2024 4:00 PM EDT Clinical Support [facility] Care [address] [address] 12/02/2024 2:15 PM EDT Clinical Support [facility] [place] [address] [place] [address] 12/04/2024 3:10 PM EDT Office Visit [facility] 1 [place] [address] Jerry Monroe Jr., MD [address] [place] [address] 12/06/2024 4:15 PM EDT Clinical Support [facility] 1 [place] [address] 12/09/2024 3:30 PM EDT Clinical Support [facility] [place] [address] [place] [address] 12/11/2024 2:40 PM EDT Office Visit [facility] 1 [place] [address] Jerry Monroe Jr., MD [address] [place] [address] 12/13/2024 3:30 PM EDT Clinical Support [facility] 1 [place] [address] 12/16/2024 3:30 PM EDT Clinical Support [facility] 1 [place] [address] 12/18/2024 3:00 PM EDT Office Visit [facility] 1 [place] [address] Jerry Monroe Jr., MD [address] [place] [address] 12/20/2024 3:30 PM EDT Clinical Support [facility] 1 [place] [address] documented as of this encounter Visit Diagnoses Not on filedocumented in this encounter
[2024-11-25] MEDS: ERTAPENEM SODIUM 1 GM in 0.9 % SODIUM CHLORIDE 50 ML IV (08:41)
[2024-11-25] MEDS: SODIUM CHLORIDE 0.9% 10ML FLUSH SYRINGE 10 ML IV (08:42)
[2024-11-25] MEDS: MICAFUNGIN SODIUM IV (09:12)
[2024-11-25] MEDS: SODIUM CHLORIDE 0.9% IV (09:12)
== END 2024-11-25 10:20 | disposition home or self-care (01) ==
PROVIDERS: PCP Family Medicine; Visit Provider Student in an Organized Health Care Education/Training Program
DX: T14.8XXA Other injury of unspecified body region, initial encounter (principal); L08.9 Local infection of the skin and subcutaneous tissue, unspecified; X58.XXXA Exposure to other specified factors, initial encounter; Y93.9 Activity, unspecified; Y92.9 Unspecified place or not applicable
CPT/HCPCS: 96365; 96367; J1335; J2248

== ENCOUNTER 2024-11-26 08:00 | Outpatient (CLI) | payer MEDICARE, OTHER, SELFPAY ==
--- OUTSIDE RECORDS SUMMARY | 2024-10-11 10:15 | XMS_ITS | Encounter Summary ---
Author Organization [facility] Address [address] [place] [address] Care Team Providers Care Last Pattern Grader Name Role Phone Asad Victor MD Primary Care Provider + [phone] Encounter Details Date Type Department Care Team (Latest Contact Info) Description 10/11/2024 10:15 AM EDT Pre-Admission Testing [facility] Pre-op Clinic [address]st [place] [phone] Preop testing (Primary Dx) Anesthesia Record Procedure [...] Hand; Site Prep: Chlorhexidine ; Local Anesth: [place]; Technique: Anatomical landmarks; Inserted by: CHRISTIAN Acuna; [...] G; Orientation: Right; Location: Axillary; Inserted by: VENEER MARKER; Securement: Sutured; Patient Tolerance: Tolerated well; Removal [...] drink first t dino in the morning (EYE-BUSINESS CONTROLLER) to steady your nerves or to get [...] T2DM, HLD, HTN, RLS who presented to [facility] with a large left common [...] CEA 2016 + 3rd degree AV block MAGNETIC RESONANCE IMAGING COORDINATOR-P placed 08/2023 for Wenkeback with 11 sec pause + HLD + HTN - controlled + PAD 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 S/P intravascular lithotripsy of left common and external iliac artery with 2 continuous balloon mounted bare metal stents 09/12/24 on Xarelto and ASA + WILHELM occ, low energy for > year - had work-up recently in [place] (will get records) + peripheral edema LLE [...] ENDARTERECTOMY N/A 2017 Endarterectomy Carotid Artery from [facility] CORONARY ANGIOPLASTY Left Coronary Angiography With Concomitant Left Heart Catheterization from [facility] CORONARY ARTERY BYPASS GRAFT N/A 2018 3V ELBOW SURGERY Right OTHER SURGICAL HISTORY N/A Reported Prior Surgical / Procedural History from [facility] [5] No Known Allergies [6] Current Outpatient [...] card, photo ID, along with power of trademark attorney, guardianship or advanced directives if applicable [...] Description 11/26/2024 2:00 PM EDT Hospital Encounter [facility] Vascular Lab [address] [place] [address] 11/26/2024 2:30 PM EDT Hospital Encounter [facility] Lab [address] [place] [address] 11/26/2024 3:20 PM EDT Office Visit [facility] [address] [place] [address] Elisabet Schuster PA [address] [place] [address] 11/29/2024 2:30 PM EDT Office Visit [facility] [address] [place] [address] Oscar Appiah MD [address] [facility] [address] [place] [address] documented as of this encounter [...] Modality Other Narrative 10/17/2024 9:50 AM EDT [facility]: Pre-operative CIED Report Assessment and Sara-Procedural Reommendations: Name: Mono Bobby Date: 10/17/2024 : 1960 Age: 64 y.o. Patient has a Robot Technician: Berger MAGNETIC RESONANCE IMAGING COORDINATOR-PM Remaining battery longevity adequate. Lead integrity test [...] recommendations. Supporting reports can be found in [employer] file. us Emelina DOSHI CV IMPLANTABLE CARDIAC [...] documented as of this encounter Care Teams Last Pattern Grader Relationship Specialty Start Date End Date Asad Victor MD [address] [place] [address] PCP - General 10/07/22 documented as of this encounter
--- OUTSIDE RECORDS SUMMARY | 2024-10-16 14:45 | XMS_ITS | Encounter Summary ---
Author Organization Healthcare Address [address] [place] [address] Care Team Providers Care Immunohematologist Name Role Phone Asad Victor MD Primary Care Provider + [phone] Encounter Details Date Type Department Care Team (Latest Contact Info) Description 10/16/2024 2:45 PM EDT - 10/16/2024 11:59 PM EDT Hospital Encounter Cardiac Imaging [address] [place] [address] Discharge Disposition: Home or Self Care Social [...] drink first t dino in the morning (EYE-LEAD MANUFACTURING ENGINEERING TECH) to steady your nerves or to [...] Description 11/26/2024 2:00 PM EDT Hospital Encounter [facility] Lab [address] [place] [address] 11/26/2024 2:30 PM EDT Hospital Encounter [facility] [address] [place] [address] 11/26/2024 3:20 PM EDT Office Visit [facility] [address] [place] [address] Elisabet Schuster, GLENDA [address] [facility] [address] [place] [address] 11/29/2024 2:30 PM EDT Office Visit [place] [facility] [address] [place] [address] Oscar Appiah MD [address] [facility] [address] [place] [address] documented as of this encounter Goals Goal [...] Modality Other Narrative 10/17/2024 9:50 AM EDT [facility]: Pre-operative CIED Report Assessment and Sara-Procedural Reommendations: Name: Mono Bobby Date: 10/17/2024 : 1960 Age: 64 y.o. Patient has a Cargo Services Coordinator: Berger RN TRANSFER-PM Remaining battery longevity adequate. Lead integrity test [...] recommendations. Supporting reports can be found in [employer] media file. 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
--- OUTSIDE RECORDS SUMMARY | 2024-10-17 06:21 | XMS_ITS | Encounter Summary ---
Author Organization [facility] Address [address] [address] Care Team Providers Care Lead Sewage Plant Operator Name Role Phone Asad Victor MD Primary Care Provider [phone] Reason for Referral * Imaging (Routine) - Authorized Specialty Diagnoses / Procedures Referred By Susan t Referred To Contact Cardiology Diagnoses Critical limb ischemia of left lower extremity Pseudoaneurysm of left femoral artery (CMS/HCC) Procedures VAS US Arterial Duplex Lower Extremity Unilateral Left Terrell Gautam MD [address] [address] Phone: tel: fax: Referral ID Status Reason Start Date Expiration Date Visits Requested Visits Authorized [id number] Authorized Perform Procedure 10/19/2024 04/20/2026 1 1 * Imaging (Routine) - Authorized Specialty Diagnoses / Procedures Referred By Contac t Referred To Contact Cardiology Diagnoses Critical limb ischemia of left lower extremity Pseudoaneurysm of left femoral artery (CMS/HCC) Procedures VAS Ankle Brachial Index - Segmental Terrell Gautam MD [id number] [place] [address] Phone: tel: fax: Referral ID Status Reason Start Date Expiration Date Visits Requested Visits Authorized [id number] Authorized Perform Procedure 10/19/2024 04/20/2026 1 1 * Consultation (Routine) - Authorized Specialty Diagnoses / Procedures Referred By Contact Referred To Contact Vascular Surgery / [facility] Diagnoses Critical limb ischemia of left lower extremity Pseudoaneurysm of left femoral artery (CMS/HCC) Terrell Gautam MD [address] [place] [address] Phone: tel:[phone] fax:[phone] [facility] [address] [place] [address] 5th Floor [address] [place] [address] Phone: tel: fax: Referral ID Status Reason Start Date Expiration Date Visits Requested Visits Authorized [id number] Authorized Specialty Services Required 10/19/2024 04/20/2026 [address] Gautam, with SIL, arterial duplex Reason for Visit * Auth/Cert (Routine) Specialty Diagnoses / Procedures Referred By Susan t Referred To Contact Diagnoses Critical limb ischemia of left lower extremity Critical limb ischemia of left lower extremity [I70.222] Procedures NH VEIN BYPASS GRAFT,FEM-POP CREATION, BYPASS, ARTERIAL, FEMORAL TO POPLITEAL Terrell Gautam MD [address] [place] [phone] Phone: tel: fax: [facility] A OPERATING ROOM [address] [place] [address] Phone: tel: Referral ID Status Reason Start Date Expiration Date Visits Re quested Visits Authorized [id number] 1 1 Encounter Details Date Type Department Care Team (Latest Contact Info) Description 10/17/2024 6:21 AM EDT - 10/19/2024 12:39 PM EDT Hospital Encounter [facility] H Inpatient [address] [place] [phone] Terrell Gautam MD [address] [place] [phone] Pseudoaneurysm of left femoral artery (CMS/HCC) [...] drink first t dino in the morning (EYE-JACKET CHANGER) to steady your nerves or to get rid of a hangover? 0 10/18/2021 CAGE Questionnaire Score 0 022 Utilities Answer Date Recorded In the past 12 months has th [employer], gas, oil, or water [employer] threatened to shut off services in your [...] provided Taken 10/17/20242107 by Jourdan Grimes II change over Review/Management: medications reviewed Problem: Skin Injury Risk [...] Ongoing, Progressing Intervention: Promote Activity and Functional [place] Flowsheets (Taken 10/19/2024 1048) Self-Care Promotion: BADL personal objects within reach meal set-up provided * Yuni Ramires - Keyla Chow - 10/19/2024 11:45 AM EDT Images from the original note were not included. [address]1976 After Peripheral Artery Bypass Surgery: In the [...] home. Last Reviewed Date: 2023 00:00:00 ?? [id number] [employer]. All rights reserved. This information is not intended as a substitute for professional medical care. Always follow your healthcare professional's instructions. * Progress Notes - Emelina Friend - 10/19/2024 11:44 AM EDT Case Management Adult Progress Note Bev Bobby 64 y.o. male CSN: [id number] Admission: 10/17/2024 6:21 AM Primary Problem: Critical [...] if any other needs arise. Emelina Friend WOOD FLOOR REFINISHER, SENIOR DATASTAGE DEVELOPER Social Work Case Management * Yuni OviJOSE MANUEL Chow Keyla - 10/19/2024 11:44 AM EDT Images from the original note were not included. [id number] Peripheral Artery Disease (PAD) Peripheral artery disease [...] cause. Last Reviewed Date: 2024 00:00:00 ?? 7318-6418 [employer]. All rights reserved. This information is not intended as a substitute for professional medical care. Always follow your healthcare professional's instructions. * Yuni DiorNAVYA - Keyla Chow - 10/19/2024 11:44 AM EDT Images from the original note were not included. [address] Leg Artery Emergencies: Critical Limb Ischemia (CLI) [...] appointments. Last Reviewed Date: 2023 00:00:00 ?? 9191-0182 [employer]. All rights reserved. This information is not intended as a substitute for professional medical care. Always follow your healthcare professional's instructions. * Discharge Summary - Dandy Baltazar MD - 10/19/2024 11:31 AM EDT Hospitalization Admit Date/Time: 10/17/2024 6:21 AM Admitting Attending: Terrell Gautam Discharge Date: 10/19/24 Discharge Attending Physician: Nirmal Cueto MD PCP name and Address: Asad Victor MD (Inactive) [address] [place] [address] / [facility] [address] Referring provider name and address: Timothy Marques PA [address] [place] [address] Chief Concern, Brief History of Present Illness, and Hospital Course Bev Bobby is an 64 y.o. 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 He [...] Your Medications These medications were sent to [facility] [place] [place], [place] - [address], [facility] [address] acetaminophen 500 MG tablet clopidogrel 75 MG [...] ischemia of left lower extremity [address] 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 He [...] provided Taken 10/17/20242107 by Jourdan Grimes II, change over Review/Management: medications reviewed Problem: Skin Injury Risk [...] Ongoing, Progressing Intervention: Promote Activity and Functional [place] Flowsheets (Taken 10/19/2024 1048) Self-Care Promotion: BADL personal objects within reach meal set-up provided * Progress Notes - Femi oCle - 10/19/2024 9:08 AM EDT PHYSICAL THERAPY [...] evaluation. PARTICIPANTS IN CARE Visitors Present No Order Checker Packer Processer (if applicable) PRESENTATION Oxygen Oxygen Therapy: None [...] Level of Mobility Ambulatory- household only Mobility [place] Independent gait with device (rollator) History of [...] numbness in rodney) BED MOBILITY Level of [place] Physical/Non- physical Assist Adaptive Equipment Utilized Rolling/ Turning Scooting/ Bridging Modified independence (anteriorly to EOB) Bed rails Supine to Sit Modified [place] (to the right) (HOB flat) Bed rails Sit to Supine Interventions HOB flat to simulate home environment TRANSFERS Level of [place] Physical/Non- physical Assist Adaptive Equipment Utilized Sit [...] stable surfaces during transitions. AMBULATION Level of [place] Distance Adaptive Equipment Utilized Ambulation Standby assist, [...] Posture: Forward head, Rounded shoulders Level of [place] Balance Support Interventions Static Sit Independent Right [...] 3-5 steps with a railing?: A little [facility] 6-Clicks Mobility Assessment Total : 22 ASSESSMENT [...] evaluation/session. Participants in Care Family/Caregiver Present: No Order Checker Packer Processer: Not Applicable Presentation Oxygen Therapy: None (Room [...] Level of Mobility: Ambulatory- household only Mobility [place]: Independent gait with device (rollator) History of [...] Mobility Bed Mobility Exam: Scooting/Bridging Level of [place]: Modified independence (anteriorly to EOB) Assistive Device: Bed rails Bed Mobility Exam: Supine to Sit Level of [place]: Modified [place] (to the right) Physical/Nonphysical Assist: (HOB flat) Assistive Device: Bed rails Transfers Transfer Exam: Sit to stand Level of [place]: Stand-by assist Physical/Nonphysical Assist: Supervision, Verbal Cues, Minimal cues Assistive Device: Walker, rolling Transfer Exam: Stand to Sit Level of [place]: Stand-by assist Physical/Nonphysical Assist: Supervision, Verbal Cues, [...] regarding toileting at this time. Standardized Assessments [facility] 6-Click Daily Activities Help from Other: Don/Doff Regular Lower Body Clothings: None Help From Other: Bathing: Little Help From Other: Toileting: None Help From Other: Don/Doff Upper Body Clothings: None Help From Other: Grooming: None Help From Other: Eating Meals: None [facility] 6 Click - Daily Activities Score: 23/24 [facility] Scoring Interpretation: Scores greater than 20.5 suggest [...] Manage Contributors Flowsheets (Taken 10/17/20242107 by Jourdan Grimse II, RN) Medication Review/Management: medications reviewed Problem: [...] Note Bev Bobby 64 y.o. male CSN: [id number] Admission: 10/17/2024 6:21 AM Primary Problem: Critical limb ischemia of left lower extremity Composite Bond Worker reviewed chart and spoke with patient to complete this Initial Case Management Assessment. PCP: Asad Victor MD (Inactive) - Dr. Palomo Preferred pharmacy is [facility] Emergency Contact: Extended Emergency Contact Information Primary Emergency Contact: Patti Hill Relation: Sister Order Checker Packer Processer needed? No Insurance: Primary Visit Coverage Payer Plan Sponsor Code Group Number Group Name [facility] MEDICARE [facility] MEDICARE REPLACEMENT [id number] Primary Visit Coverage Subscriber Subscriber ID Subscriber Name Subscriber N Subscriber Address [id number] BEV BOBBY [id number] [place] [address] Secondary Visit Coverage Payer Plan Sponsor Code Group Number Group Name [facility] Secondary Visit Coverage Subscriber Subscriber ID Subscriber Name Subscriber N Subscriber Address [id number] BEV BOBBY [id number] [place] [address] Patient information: Primary Caregiver: Self Daily Living Activities: Functional Status: Independent Living Arrangements: Alone Type of Residence: Private residence, Single Level [address] [place] [address] Current DME: Equipment Currently Used at Home: walker, rollator Income Information: Income Source: Retired Income/Expense Information: Income meets expenses Current Resources Utilized: Food [place] Housing Circumstances-Z Codes: Housing Circumstances (select all [...] Dialysis Services: None. Living Will/Advance Directive/Power of Electronic Typesetting Machine Operator /Guardian: Denied. Additional Comments: Patient is not medically ready for discharge. SW will continue to follow. Mariia Macedo SENIOR DATASTAGE DEVELOPER * Care Plan - Emilia Alonso RN [...] Agree with above assessment and evaluation from resident/TELEPHONE OPERATOR CHIEF. * Op Note - Terrell Gautam MD - 10/17/2024 8:52 AM EDT Operative Note Date: 10/17/24 Location: [facility] Name: Bev Bobby, : 1960, Diagnoses: Pre-op Diagnosis Critical limb ischemia of left lower extremity Common femoral artery pseudoaneurysm Post-op Diagnosis Critical limb ischemia of left lower extremity Common femoral artery pseudoaneurysm Procedure(s): Left common/superficial/profunda femoral thromboendarterectomy with bovine patch repair Left external iliac artery/MILLER DISTILLERY stent Attending Surgeon(s): * Terrell Gautam - Primary Church Communications Administrator(s): * Luna Beckett MD - Resident - [...] Necessity Reasons Recent surgery contiguous with urinary tract/ASSISTANT INVENTORY MANAGER/colorectal 10/17/24 190 Output (mL) 50 mL 10/18/24 08 Implants Type Name Action Serial No. VASCUGUARD 8 X 8 - [id number] Implanted STENT ENDOPROSTHESIS VIABAHN 9FR [id number] - [id number] Implanted [id number] Specimen: Specimens ID Source Frozen? 1 Other [...] and distal control. We then proceeded with nubmd-ndn-dajt exposure of the popliteal artery. A medial [...] balloon dilated thestent with a 9 mm [place]. We closed the arteriotomy with a single [...] patient tolerated the procedure well. Submitted by: Dadny Baltazar MD - 10/18/2024 I saw and evaluated the patient with the resident/fellow. I discussed the case with the resident/fellow and agree with the findings and plan as documented. Terrell Gautam MD * Brief Op Note - Dandy Baltazar MD - 10/17/2024 8:52 AM EDT Date: 10/17/24 Location: [facility] Name: Bev Perez Kanu, : 1960, Diagnoses: Pre-op Diagnosis Critical limb ischemia of left lower extremity Common femoral artery pseudoaneurysm Post-op Diagnosis Critical limb ischemia of left lower extremity Common femoral artery pseudoaneurysm Procedure(s): Left common/superficial/profunda femoral thromboendarterectomy with bovine patch repair Left external iliac artery/MILLER DISTILLERY stent Attending Surgeon(s): * Terrell Gautam - Primary Church Communications Administrator(s): * Luna Beckett MD - Resident - Assisting * Dandy Baltazar MD - Fellow Anesthesia: General ASA: III Blood Administration: Blood Product Administration History None Estimated Blood Loss: 300 mL Drains: Urethral Catheter Temperature probe 16 Fr. (Active) Implants Type Name Action Serial No. VASCUGUARD 8 X 8 - [id number] Implanted STENT ENDOPROSTHESIS VIABAHN 9FR [id number] - [id number] Implanted [id number] Specimen: Specimens ID Source Frozen? 1 Other [...] issues. 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 He previouslyunderwent thrombin injection. He reports pain in his calves. He presents today for scheduled left lower extremity femoral to mybph-wro-lhdo popliteal bypass. Planned likely use PTFE. He [...] 16. Results Review {Vanishing Link Review Results :[id number] I have reviewed the latest lab and imaging results. Assessment & Plan Critical limb ischemia of left lower extremity Proceed with scheduled surgery left lower extremity femoral to nsmbu-kbd-[id number] popliteal artery bypass graft. Extensive discussion had [...] Description 11/26/2024 2:00 PM EDT Hospital Encounter [facility] [address] [place] [address] 11/26/2024 2:30 PM EDT Hospital Encounter [facility] [address] [place] [address] 11/26/2024 3:20 PM EDT Office Visit [facility] [address] Floor [address] [place] [address] Elisabet Schuster, GLENDA [address] [facility] [address] [place] [address] 11/29/2024 2:30 PM EDT Office Visit [facility] [address] [place] [phone] Oscar Appiah MD [address] [facility] [address] [place] [address] Pending Results Name Type Priority Associated Diagnoses [...] PREPARE RBC STAT 10/17/2024 8:06 AM EDT NH VEIN BYPASS GRAFT,FEM-POP 10/17/2024 7:38 AM EDT [...] Comment 10/19/2024 11:42 AM EDT HEALTHCARE LAB Hand Silvering Supervisor ID KamranJob 10/20/19 11:42 AM EDT HEALTHCARE LAB Device ID [id number] 10/19/2024 11:42 AM EDT [facility] Specimen Type POC Capillary 10/19/2024 11:42 AM EDT [facility] Blood Capillary blood specimen / Unknown 10/19/2024 11:40 AM EDT 10/19/2024 11:42 AM EDT Terrell Gautam MD LAB POINT OF CARE TE ST DOCKED DEVICE UNSOLICITED RESULTS Final Result Performing Organization Address City/State/[facility] Co de Phone Number HEALTHCARE LAB [address] [place] [address] * (ABNORMAL) Protime-INR (10/19/2024 8:25 AM EDT) [...] INR 2.5 to 3.5 Prevention of recurrent OR INR 2.5 to 3.5 Nirmal Cueto MD LAB BLOOD [place]AB[place] [address] * (ABNORMAL) Phosphorus (10/19/2024 8:25 AM EDT) Phosphorus, Plasma 2.2(L) 2.5 - 4.5 mg/dL 10/19/2024 9:12 AM EDT [facility] Blood Venous blood specimen / Unknown Venipuncture / Unknown 10/19/2024 8:25 AM EDT 10/19/2024 8:43 AM EDT Nirmal Cueto MD LAB BLOOD ORDERABLES Final Result Performing Organization Address City/[facility]/ZIP Co de Phone Number [facility] [address] [place] [address] * Magnesium (10/19/2024 8:25 AM EDT) Magnesium, Plasma 2.1 1.9 - 2.4 mg/dL 10/19/2024 9:12 AM EDT [facility] Blood Venous blood specimen / Unknown Venipuncture / Unknown 10/19/2024 8:25 AM EDT 10/19/2024 8:43 AM EDT Nirmal Cueto MD LAB BLOOD ORDERABLES Final Result Performing Organization Address City/[facility]/ZIP Co de Phone Number [facility] [address] [place] [address] * (ABNORMAL) Basic metabolic panel (10/19/2024 8:25 [...] [facility] [address] [place] [address] * (ABNORMAL) CBC W/O Differential (10/19/2024 8:25 [...] Result [facility] [address] [place] [address] * (ABNORMAL) POCT glucose meter (10/19/2024 7:35 AM EDT) [facility] POCT Glucose 187(H) 74 - 99 [...] Comment 10/19/2024 7:37 AM EDT HEALTHCARE LAB Hand Silvering Supervisor ID Job Andrew 10/20/19 7:37 AM EDT HEALTHCARE LAB Device ID [id number] 10/19/2024 7:37 AM EDT HEALTH[facility]ARE LAB Specimen Type POC Capillary 10/19/2024 7:37 AM EDT [facility]ALTH[facility]ARE LAB Blood Capillary blood specimen / Unknown 10/19/2024 7:35 AM EDT 10/19/2024 7:37 AM EDT us Terrell Gautam MD LAB POINT OF CARE TE ST DOCKED DEVICE UNSOLICITED RESULTS Final Result Performing Organization Address City/State/[facility] Co de Phone Number [facility] [address] [place] [address] * (ABNORMAL) POCT glucose meter (10/18/2024 7:22 PM EDT) [facility] POCT Glucose 178(H) 74 - 99 [...] 10/18/2024 7:24 PM EDT [facility] Hand Silvering Supervisor ID Jovan Mahesh 10/18/2024 7:24 PM EDT [facility] Device ID [id number] 10/18/2024 7:24 PM EDT HEALTHCARE LAB Specimen Type POC Capillary 10/18/2024 7:24 PM EDT [facility]ALTH[facility]ARE LAB Blood Capillary blood specimen / Unknown 10/18/2024 7:22 PM EDT 10/18/2024 7:24 PM EDT us Terrell Gautam MD LAB POINT OF CARE TE ST DOCKED DEVICE UNSOLICITED RESULTS Final Result Performing Organization Address City/[facility]/ZIP Co de Phone Number [facility] [address] [place] [address] * (ABNORMAL) POCT glucose meter (10/18/2024 6:07 [...] Comment 10/18/2024 6:09 PM EDT HEALTHCARE LAB Hand Silvering Supervisor ID David Parks 10/18/2024 6:09 PM EDT HEALTHCARE LAB Device ID [id number] 10/18/2024 6:09 PM EDT HEALTHCARE LAB Specimen Type POC Capillary 10/18/2024 6:09 PM EDT [facility]ARE LAB Blood Capillary blood specimen / Unknown 10/18/2024 6:07 PM EDT 10/18/2024 6:09 PM EDT us Terrell Gautam MD LAB POINT OF CARE TE ST DOCKED DEVICE UNSOLICITED RESULTS Final Result [facility] [address] [place] [address] * (ABNORMAL) POCT glucose meter (10/18/2024 11:56 [...] Comment 10/21/2024 7:42 AM EDT HEALTHCARE LAB Hand Silvering Supervisor ID Venessa Marcano 10/21/2024 7:42 AM EDT [facility] Device ID [id number] 10/21/2024 7:42 AM EDT [facility] Specimen Type POC Capillary 10/21/2024 7:42 AM EDT [facility]ALTH[facility]ARE LAB Blood Capillary blood specimen / Unknown 10/18/2024 11:56 AM EDT 10/21/2024 7:42 AM EDT us Terrell Gautam MD LAB POINT OF CARE TE ST DOCKED DEVICE UNSOLICITED RESULTS Final Result Performing Organization Address City/State/[facility] Co de Phone Number HEALTHCARE LAB [address] [place] [address] * (ABNORMAL) POCT glucose meter (10/18/2024 9:24 [...] 10/21/2024 7:42 AM EDT [facility] Hand Silvering Supervisor ID Emilia Aolnso 7:42 AM EDT [facility] Device ID [id number] 10/21/2024 7:42 AM EDT HEALTHCARE LAB Specimen Type POC Venous 10/21/2024 7:42 AM EDT [facility]ALTH[facility]ARE LAB Blood Venous blood specimen / Unknown 10/18/2024 9:24 AM EDT 10/21/2024 7:42 AM EDT us Terrell Gautam MD LAB POINT OF CARE TE ST DOCKED DEVICE UNSOLICITED RESULTS Final Result [facility] [address] [place] [address] * (ABNORMAL) POCT glucose meter (10/18/2024 7:36 AM EDT) [facility] POCT Glucose 215(H) 74 - 99 mg/dL [...] for testing. Comment 10/18/2024 7:38 AM EDT [facility] Hand Silvering Supervisor ID Kizzy Godfrey 025 7:38 AM EDT HEALTHCARE LAB Device ID [id number] 10/18/2024 7:38 AM EDT [facility] Specimen Type POC Capillary 10/18/2024 7:38 AM EDT [facility] Blood Capillary blood specimen / Unknown 10/18/2024 7:36 AM EDT 10/18/2024 7:38 AM EDT us Terrell Gautam MD LAB POINT OF CARE TE ST DOCKED DEVICE UNSOLICITED RESULTS Final Result [facility] [address] [place] [address] * (ABNORMAL) CBC (10/18/2024 2:09 AM EDT) Pathologist [facility] WBC Count 16.71(H) 3.70 - 10.30 10*3/uL [...] Result [facility] [address] [place] [address] * (ABNORMAL) Basic metabolic panel (10/18/2024 2:09 [...] [facility] [address] [place] [address] * (ABNORMAL) Magnesium (10/18/2024 2:09 AM EDT) Magnesium, Plasma 1.8(L) 1.9 - 2.4 mg/dL 10/18/2024 2:53 AM EDT [facility] Blood Venous blood specimen / Unknown Venipuncture / Unknown 10/18/2024 2:09 AM EDT 10/18/2024 2:25 AM EDT us Nirmal Cueto MD LAB BLOOD ORDERABLES Final Result [facility] [address] [place] [address] * Phosphorus (10/18/2024 2:09 AM EDT) Phosphorus, Plasma 3.7 2.5 - 4.5 mg/dL 10/18/2024 2:53 AM EDT [facility] Blood Venous blood specimen / Unknown Venipuncture / Unknown 10/18/2024 2:09 AM EDT 10/18/2024 2:25 AM EDT Nirmal Cueto MD LAB BLOOD ORDERABLES Final Result Performing Organization Address [facility] Co de Phone Number [facility] [address] [place] [address] * (ABNORMAL) Protime-INR (10/18/2024 2:09 AM EDT) [...] INR 2.5 to 3.5 Prevention of recurrent OR INR 2.5 to 3.5 us Nirmal Cueto MD LAB BLOOD ORDERABLES Final Result Performing Organization Address City/[facility]/ZIP Co de Phone Number [facility] [address] [place] [address] * (ABNORMAL) POCT glucose meter (10/18/2024 2:08 AM EDT) [facility] POCT Glucose 202(H) 74 - 99 [...] Comment 10/18/2024 2:10 AM EDT HEALTHCARE LAB Hand Silvering Supervisor ID Jourdan Grimes II 10/18/2024 2:10 AM EDT HEALTHCARE LAB Device ID [id number] 10/18/2024 2:10 AM EDT HEALTHCARE LAB Specimen Type POC Capillary 10/18/2024 2:10 AM EDT [facility] Blood Capillary blood specimen / Unknown 10/18/2024 2:08 AM EDT 10/18/2024 2:10 AM EDT us Terrell Gautam MD LAB POINT OF CARE TE ST DOCKED DEVICE UNSOLICITED RESULTS Final Result Performing Organization Address City/State/[facility] Co de Phone Number [facility]ARE LAB [address] [place] [address] * (ABNORMAL) POCT glucose meter (10/17/2024 10:07 PM EDT) [facility] POCT Glucose 300(H) 74 - 99 [...] Comment 10/17/2024 10:10 PM EDT HEALTHCARE LAB Hand Silvering Supervisor ID Jourdan Grimes II 10/17/2024 10:10 PM EDT HEALTHCARE LAB Device ID [id number] 10/17/2024 10:10 PM EDT HEALTHCARE LAB Specimen Type POC Capillary 10/17/2024 10:10 PM EDT [facility]ALTH[facility]ARE LAB Blood Capillary blood specimen / Unknown 10/17/2024 10:07 PM EDT 10/17/2024 10:10 PM EDT Terrell Gautam MD LAB POINT OF CARE TE ST DOCKED DEVICE UNSOLICITED RESULTS Final Result Performing Organization Address City/[facility] Co de Phone Number HEALTHCARE LAB [address] [place] [address] * (ABNORMAL) POCT glucose meter (10/17/2024 8:07 [...] Comment 10/17/2024 8:10 PM EDT [facility]ALTHCARE [facility] Hand Silvering Supervisor ID Jorudan Grimes II 10/17/2024 8:10 PM EDT HEALTHCARE LAB Device ID [id number] 10/17/2024 8:10 PM EDT HEALTHCARE LAB Specimen Type POC Capillary 10/17/2024 8:10 PM EDT [facility] Blood Capillary blood specimen / Unknown 10/17/2024 8:07 PM EDT 10/17/2024 8:10 PM EDT us Terrell Gautam MD LAB POINT OF CARE TE ST DOCKED DEVICE UNSOLICITED RESULTS Final Result Performing Organization Address City/[facility]/ZIP Co de Phone Number [facility] [address] [place] [address] * (ABNORMAL) POCT glucose meter (10/17/2024 4:01 [...] Comment 10/17/2024 4:03 PM EDT HEALTHCARE LAB Hand Silvering Supervisor ID Keisha Waller 10/17/2024 4:03 PM EDT HEALTHCARE LAB Device ID [id number] 10/17/2024 4:03 PM EDT HEALTHCARE LAB Specimen Type POC Capillary 10/17/2024 4:03 PM EDT HEALTHCARE LAB Blood Capillary blood specimen / Unknown 10/17/2024 4:01 PM EDT 10/17/2024 4:03 PM EDT us Terrell Gautam MD LAB POINT OF CARE TE ST DOCKED DEVICE UNSOLICITED RESULTS Final Result Performing Organization Address City/State/[facility] Co de Phone Number HEALTHCARE LAB [address] [place] [address] * (ABNORMAL) POCT glucose meter (10/17/2024 1:25 PM EDT) [facility] POCT Glucose 225(H) 74 - 99 [...] Comment 10/17/2024 1:27 PM EDT HEALTHCARE LAB Hand Silvering Supervisor ID Kizzy Godfrey 025 1:27 PM EDT HEALTHCARE LAB Device ID [id number] 10/17/2024 1:27 PM EDT HEALTHCARE LAB Specimen Type POC Capillary 10/17/2024 1:27 PM EDT HEALTHCARE LAB Blood Capillary blood specimen / Unknown 10/17/2024 1:25 PM EDT 10/17/2024 1:27 PM EDT us Terrell Gautam MD LAB POINT OF CARE TE ST DOCKED DEVICE UNSOLICITED RESULTS Final Result Performing Organization Address City/[facility] Co de Phone Number HEALTHCARE LAB [address] [place] [address] * [place] Less than 1 Hour Intraoperative (10/17/2024 1:18 PM EDT) Narrative IMAGING - 10/17/2024 2:05 PM EDT Images were obtained for surgical purposes. See Terrell Gautam's surgical note in the patient's chart for the findings. Terrell Gautam MD IMG FLUOROSCOPY PROCEDURES Fi nal Result Performing Organization Address [facility] Co de Phone Number IMAGING * POCT ACT (10/17/2024 12:23 PM EDT) ACT+ (HIGH RANGE) 211 68 - 600 Seconds 10/29/2024 7:28 AM EDT HEALTHCARE LAB Hand Silvering Supervisor ID Donna Mcmillan 10/29/2024 7:28 AM EDT HEALTHCARE LAB ACT Device ID [id number] 10/29/2024 7:28 AM EDT [facility] [...] UNSOLICITED RESULTS Final Result Performing Organization Address [facility] Co de Phone Number HEALTHCARE LAB [address] [place], [place] [id number] [place] [address] LAB [address] [place] [address] * (ABNORMAL) Blood gas, arterial (10/17/2024 11:48 [...] sult [facility] [address] [place] [address] * POCT ACT (10/17/2024 11:41 AM EDT) ACT+ (HIGH RANGE) 175 68 - 600 Seconds 10/29/2024 7:28 AM EDT HEALTHCARE LAB Hand Silvering Supervisor ID Oneyda Alicea 10/29/2024 7:28 AM EDT HEALTHCARE LAB ACT Device ID [id number] 10/29/2024 7:28 AM EDT HEALTHCARE LAB Comment [...] ST DOCKED DEVICE UNSOLICITED RESULTS Final Result [facility] [address] LAB [address] [place] [address] * POCT ACT (10/17/2024 11:11 AM EDT) ACT+ (HIGH RANGE) 252 68 - 600 Seconds 10/29/2024 7:28 AM EDT HEALTHCARE LAB Hand Silvering Supervisor ID Donna Mcmillan 10/29/2024 7:28 AM EDT HEALTHCARE LAB ACT Device ID [id number] 10/29/2024 7:28 AM EDT HEALTHCARE LAB Comment [...] RESULTS Final Result [facility] [address] LAB [address] [place] [address] * (ABNORMAL) Blood gas, arterial (10/17/2024 10:46 [...] sult [facility] [address] [place] [address] * POCT ACT (10/17/2024 10:37 AM EDT) ACT+ (HIGH RANGE) 206 68 - 600 Seconds 10/29/2024 7:28 AM EDT [facility] Hand Silvering Supervisor ID Donna Mcmillan 10/29/2024 7:28 AM EDT [facility] ACT Device ID [id number] 10/29/2024 7:28 AM EDT [facility] Comment 10/29/2024 7:28 AM EDT [...] ST DOCKED DEVICE UNSOLICITED RESULTS Final Result [facility] [address] LAB [address] [place] [address] * Surgical Pathology Exam (10/17/2024 10:27 AM EDT) Case Report Surgical Pathology Case: [id number] Authorizing Provider: Terrell Gautam MD Collected: 10/17/2024 [...] cm. The specimen is serially sectioned and outside dealer sales representative sections are submitted in cassette [...] Result [facility] [address] [place] [address] * POCT ACT (10/17/2024 10:03 AM EDT) ACT+ (HIGH RANGE) 244 68 - 600 Seconds 10/29/2024 7:28 AM EDT [facility] Hand Silvering Supervisor ID Donna Mcmillan 10/29/2024 7:28 AM EDT [facility] ACT Device ID [id number] 10/29/2024 7:28 AM EDT [facility] [...] ST DOCKED DEVICE UNSOLICITED RESULTS Final Result [facility] [address] LAB [address] [place] [address] * (ABNORMAL) Blood gas, arterial (10/17/2024 9:45 [...] 10/17/2024 9:52 AM EDT us Jenna Lopez [facility] LAB BLOOD ORDERABLES Final Re sult [facility] [address] [place] [address] * (ABNORMAL) Blood gas, arterial (10/17/2024 8:47 [...] 10/17/2024 8:58 AM EDT us Jenna Lopez [facility] LAB BLOOD ORDERABLES Final Re sult [facility] [address] [place] [address] * POCT ACT (10/17/2024 8:46 AM EDT) ACT+ (HIGH RANGE) 101 68 - 600 Seconds 10/29/2024 7:28 AM EDT HEALTHCARE LAB Hand Silvering Supervisor ID HipolitoAdaDonna Maya 10/29/2024 7:28 AM EDT HEALTHCARE LAB ACT Device ID [id number] 10/29/2024 7:28 AM EDT HEALTHCARE LAB Comment [...] UNSOLICITED RESULTS Final Result Performing Organization Address [facility] de Phone Number [facility] [address] LAB [address] [place] [address] * Type and Screen (10/17/2024 7:19 AM EDT) Pathologist [facility] ABO/Rh A Negative 10/17/2024 7:04 AM EDT BLOOD BANK Antibody Screen Negative 10/17/2024 7:04 AM EDT BLOOD BANK Specimen Expiration 10/20/2024 23:59 10/17/2024 7:04 AM EDT BLOOD BANK Blood Venous blood specimen / Unknown Venipuncture / Unknown 10/17/2024 7:19 AM EDT 10/17/2024 7:28 AM EDT us Maria Fernanda Mccallum MD LAB BLOOD BANK TEST ORDERAB LES Final Result Performing Organization Address [facility] de Phone Number BLOOD BANK [address] [place] [address] * (ABNORMAL) POCT glucose meter (10/17/2024 6:44 AM EDT) [facility] POCT Glucose 178(H) 74 - 99 [...] 10/17/2024 6:49 AM EDT [facility] Hand Silvering Supervisor ID Hunter Burroughs 10/18/19 6:49 AM EDT [facility] Device ID [id number] 10/17/2024 6:49 AM EDT [facility] Specimen Type POC Capillary 10/17/2024 6:49 AM EDT HEALTHCARE LAB Blood Capillary blood specimen / Unknown 10/17/2024 6:44 AM EDT 10/17/2024 6:49 AM EDT Terrell Gautam MD LAB POINT OF CARE TE ST DOCKED DEVICE UNSOLICITED RESULTS Final Result [facility] [address] [place] [address] documented in this encounter Visit Diagnoses Diagnosis [...] 75 mg, Oral, Daily, First dose on Yadria 10/17/24 at 1400, Until Discontinued, Routine, Recovery(Phase [...] Oral, Every 4 hours PRN, Starting on Aydira 10/17/24 at 1308, Until 10/19/24 at 1439, [...] Recovery(Phase II-Outpatient)/On Unit(Inpatient) 1414 (Given - Provider: Keisah Waller, CHRISTIAN) 0809 (Given - Provider: Emilia [...] as of this encounter Care 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
--- OUTSIDE RECORDS SUMMARY | 2024-10-17 07:51 | XMS_ITS | Encounter Summary ---
Author Organization [facility] Address [address] [id number] Care Team Providers Care Rn Infusion Name Role Phone Asad Victor MD Primary Care Provider + [phone] Reason for Visit * Auth/Cert (Routine) Specialty Diagnoses / Procedures Referred By Contac t Referred To Contact Diagnoses Critical limb ischemia of left lower extremity Critical limb ischemia of left lower extremity [I70.222] Procedures MA VEIN BYPASS GRAFT,FEM-POP CREATION, BYPASS, ARTERIAL, FEMORAL TO POPLITEAL Terrell Gautam MD [address] [facility] [address] [place] [address] Phone: tel: fax: [facility] OPERATING ROOM [address] [place] [address] Phone: tel: Referral ID Status Reason Start Date Expiration Date Visits Re quested Visits Authorized [id number] 1 1 Encounter Details Date Type Department Care Team (Late st Contact Info) Description 10/17/2024 7:51 AM EDT Anesthesia Event [facility] RO[facility] [address] [place] [phone] Maria Fernanda Mccallum MD [address] [place] [address] Anesthesia Record Procedure Summary Procedure [...] Hand; Site Prep: Chlorhexidine ; Local Anesth: [place]; Technique: Anatomical landmarks; Inserted by: CHRISTIAN Acuna; [...] any time in the past 12 m [facility], were you homeless or living [...] drink first t dino in the morning (EYE-DATA COMMUNICATIONS TECHNICIAN) to steady your nerves or to [...] * Anesthesia Postprocedure Evaluation - Jenna Lopez, ECHOCARDIOGRAPHY TECHNOLOGIST - 10/17/2024 1:29 PM EDT Patient: Mono [...] by Swetha Villareal MD Staffing Performed: ISH ECHOCARDIOGRAPHY TECHNOLOGIST: Jenna Lopez CRNA * Anesthesia Procedure Notes - Jenna Lopez CRNA - 10/17/2024 9:00 AM EDT Associated Order(s): Airway Airway Date/Time: 10/17/2024 8:03 AM Reason: elective Airway not difficult General Information and Staff Patient location during procedure: OR ECHOCARDIOGRAPHY TECHNOLOGIST: Jenna Lopez CRNA Performed: ECHOCARDIOGRAPHY TECHNOLOGIST Patient Condition Indications for airway management: anesthesia [...] note 09/25/24 (media) + CAD s/p multiple SD's and 3V CABG 02/2019, 2 stents prior to CABG Atrial Fibrillation with RVR s/p CABG + carotid artery disease s/p R CEA 2016 + 3rd degree AV block SKATING CARHOP-P placed 08/2023 for Wenkeback with 11 sec pause + HLD + HTN - controlled + 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 CORONARY ANGIOPLASTY Left Coronary Angiography With Concomitant Left Heart Catheterization from [employer] ??? CORONARY ARTERY BYPASS GRAFT N/A 2018 [...] Description 11/26/2024 2:00 PM EDT Hospital Encounter [facility] [address] [place] [address] 11/26/2024 2:30 PM EDT Hospital Encounter [facility] [address] [place] [address] 11/26/2024 3:20 PM EDT Office Visit [facility] [address] [place] [address] Elisabet Schuster, GLENDA [address] [facility] [address] [place] [address] 11/29/2024 2:30 PM EDT Office Visit [facility] [address] [place] [address] Oscar Appiah MD [facility] [address] [place] [address] documented as of this encounter Goals Goal [...] ANESTHESIA PLACEHOLDER Routine 10/17/2024 8:03 AM EDT MA AN ELECTIVE ENDOTRACHEAL AIRWAY Routine 10/17/2024 8:03 [...] Performed by Swetha Villareal MD Staffing Performed: ECHOCARDIOGRAPHY TECHNOLOGIST ECHOCARDIOGRAPHY TECHNOLOGIST: Jenna Lopez CRNA Maria Fernanda Mccallum MD ANESTHESIA ORDERABLES Edite d Result - Final * MA AN ELECTIVE ENDOTRACHEAL AIRWAY, PB ANESTHESIA PLACEHOLDER (10/17/2024 8:03 AM EDT) Narrative Jenna Lopez CRNA - 10/17/2024 8:03 AM EDT Jenna Lopez CRNA 10/17/2024 9:00 AM Airway Date/Time: 10/17/2024 8:03 AM Reason: elective Airway not difficult General Information and Staff Patient location during procedure: OR ECHOCARDIOGRAPHY TECHNOLOGIST: Jenna Lopez CRNA Performed: ISH Patient Condition [...] Mccallum MD ANESTHESIA ORDERABLES Final Result * [facility] AN POCUS CARDIAC PROCDOC (10/17/2024 7:18 [...] Trace AR. The images were Saved in [employer] - E. The study was technically adequate. [...] as of this encounter Care Teams Rn Infusion Relationship Specialty Start Date End Date Asad Victor MD [address] [place] [address] PCP - General 10/07/22 documented as of this encounter
--- OUTSIDE RECORDS SUMMARY | 2024-10-17 08:00 | XMS_ITS | Encounter Summary ---
Author Organization [facility] Address [address] [place] [address] Care Team Providers Care [employer] Installer Name Role Phone Asad Victor MD Primary Care Provider + [phone] Reason for Visit * Auth/Cert (Routine) Specialty Diagnoses / Procedures Referred By Contac t Referred To Contact Diagnoses Critical limb ischemia of left lower extremity Critical limb ischemia of left lower extremity [I70.222] Procedures TX VEIN BYPASS GRAFT,FEM-POP CREATION, BYPASS, ARTERIAL, FEMORAL TO POPLITEAL Terrell Gautam MD [address] [address] Phone: tel: fax: [facility] [address] [place] [address] Phone: tel: Referral ID Status Reason Start Date Expiration Date Visits Re quested Visits Authorized [id number] 1 1 Encounter Details Date Type Department Care Team (Late st Contact Info) Description 10/17/2024 8:00 AM EDT - 10/17/2024 2:50 PM EDT Surgery [facility] [address] [place] [address] Terrell Gautam MD [address] [address] CREATION, BYPASS, ARTERIAL, FEMORAL TO POPLITEAL [47929 (CPT )] Surgery Details Date/Time Status Location [...] drink first t dino in the morning (EYE-AUTOMATED TELLER MANAGER) to steady your nerves or to get rid of a hangover? 0 10/18/2021 CAGE Questionnaire Score 0 022 Utilities Answer Date Recorded In the past 12 months has th e [employer], gas, oil, or water [employer] threatened to shut off services in your [...] provided Taken 10/17/20242107 by Jourdan Grimes II, geriatric nurse Review/Management: medications reviewed Problem: Skin Injury Risk [...] Ongoing, Progressing Intervention: Promote Activity and Functional Geary Flowsheets (Taken 10/19/2024 1048) Self-Care Promotion: BADL personal objects within reach meal set-up provided * Yuni Ramires - Keyla Chow - 10/19/2024 11:45 AM EDT Images from the original note were not included. [id number] After Peripheral Artery Bypass Surgery: In the [...] home. Last Reviewed Date: 2023 00:00:00 ?? [id number] [employer]. All rights reserved. This information is not intended as a substitute for professional medical care. Always follow your healthcare professional's instructions. * Progress Notes - Emelina Friend - 10/19/2024 11:44 AM EDT Case Management Adult Progress Note Bev Bobby 64 y.o. male CSN: [id number] Admission: 10/17/2024 6:21 AM Primary Problem: Critical [...] if any other needs arise. Emelina Friend CABINETMAKER APPRENTICE, SUPERVISOR SEWER SYSTEM Social Work Case Management * Yuni Ramires - Keyla Chow - 10/19/2024 11:44 AM EDT Images from the original note were not included. [id number] Peripheral Artery Disease (PAD) Peripheral artery disease [...] cause. Last Reviewed Date: 2024 00:00:00 ?? [id number] [employer]. All rights reserved. This information is not intended as a substitute for professional medical care. Always follow your healthcare professional's instructions. * Yuni Ramires - Keyla Chow - 10/19/2024 11:44 AM EDT Images from the original note were not included. [id number] Leg Artery Emergencies: Critical Limb Ischemia (CLI) [...] appointments. Last Reviewed Date: 2023 00:00:00 ?? [id number] [employer]. All rights reserved. This information is not intended as a substitute for professional medical care. Always follow your healthcare professional's instructions. * Discharge Summary - Dandy Baltazar MD - 10/19/2024 11:31 AM EDT Hospitalization Admit Date/Time: 10/17/2024 6:21 AM Admitting Attending: Terrell Gautam Discharge Date: 10/19/24 Discharge Attending Physician: Nirmal Cueto MD PCP name and Address: Asad Victor MD (Inactive) [address] [facility] Emergency Department [address] Referring provider name and address: Timothy Marques PA [address] [place] [address] Chief Concern, Brief History of Present Illness, and Hospital Course Bev Bobby is an 64 y.o. 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 [...] were sent to [facility] [place], [place] - [address] [facility] [address] [facility] [address] [facility] [address] acetaminophen 500 MG tablet clopidogrel 75 MG [...] water. Outpatient Follow-Up Follow up with 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 [...] provided Taken 10/17/20242107 by Jourdan Grimes II geriatric nurse Review/Management: medications reviewed Problem: Skin Injury Risk [...] Ongoing, Progressing Intervention: Promote Activity and Functional Geary Flowsheets (Taken 10/19/2024 1048) Self-Care Promotion: BADL [...] evaluation. 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) PRESENTATION Oxygen Oxygen Therapy: None [...] Level of Mobility Ambulatory- household only Mobility Geary Independent gait with device (rollator) History of [...] numbness in rodney) BED MOBILITY Level of Geary Physical/Non- physical Assist Adaptive Equipment Utilized Rolling/ Turning Scooting/ Bridging Modified independence (anteriorly to EOB) Bed rails Supine to Sit Modified Geary (to the right) (HOB flat) Bed rails Sit to Supine Interventions HOB flat to simulate home environment TRANSFERS Level of Geary Physical/Non- physical Assist Adaptive Equipment Utilized Sit [...] stable surfaces during transitions. AMBULATION Level of Geary Distance Adaptive Equipment Utilized Ambulation Standby assist, [...] Posture: Forward head, Rounded shoulders Level of Geary Balance Support Interventions Static Sit Independent Right [...] Assessments Standardized Assessments: AMPA 6-Clicks Mobility Assessment [facility] 6-Clicks Mobility Assessment Difficulty patient has [...] steps with a railing?: A little [facility] 6-Clicks Mobility Assessment Total : 22 [...] evaluation/session. Participants in Care Family/Caregiver Present: No Hatchery Employee: Not Applicable Presentation Oxygen Therapy: None (Room [...] Level of Mobility: Ambulatory- household only Mobility Geary: Independent gait with device (rollator) History of [...] Mobility Bed Mobility Exam: Scooting/Bridging Level of Geary: Modified independence (anteriorly to EOB) Assistive Device: Bed rails Bed Mobility Exam: Supine to Sit Level of Geary: Modified Geary (to the right) Physical/Nonphysical Assist: (HOB flat) Assistive Device: Bed rails Transfers Transfer Exam: Sit to stand Level of Geary: Stand-by assist Physical/Nonphysical Assist: Supervision, Verbal Cues, Minimal cues Assistive Device: Walker, rolling Transfer Exam: Stand to Sit Level of Geary: Stand-by assist Physical/Nonphysical Assist: Supervision, Verbal Cues, [...] Click - Daily Activities Score: 23/24 [facility] Scoring Interpretation: Scores greater than 20.5 [...] Note Bev Bobby 64 y.o. male CSN: [id number] Admission: 10/17/2024 6:21 AM Primary Problem: Critical limb ischemia of left lower extremity Pad Assembler reviewed chart and spoke with patient to complete this Initial Case Management Assessment. PCP: Asad Victor MD (Inactive) - Dr. Palomo Preferred pharmacy is [facility] Emergency Contact: Extended Emergency Contact Information Primary Emergency Contact: Patti Hill Relation: Sister Hatchery Employee needed? No Insurance: Primary Visit Coverage Payer Plan Sponsor Code Group Number Group Name [facility] MEDICARE [facility] MEDIC[facility] REPLACEMENT [id number] Primary Visit Coverage Subscriber Subscriber ID Subscriber Name Subscriber [facility] Subscriber Address [id number] BEV BOBBY [id number] [place] [address] Secondary Visit Coverage Payer Plan Sponsor Code Group Number Group Name [employer] [facility] Secondary Visit Coverage Subscriber Subscriber ID Subscriber Name Subscriber [facility] Subscriber Address [id number] BEV BOBBY [id number] [place] [address] Patient information: Primary Caregiver: Self Daily Living Activities: Functional Status: Independent Living Arrangements: Alone Type of Residence: Private residence, Single Level [address] [place] [address] Current DME: Equipment Currently Used at Home: joy monterroso Income Information: Income Source: Retired Income/Expense Information: Income meets expenses Current Resources Utilized: Food [place] Housing Circumstances-Z Codes: Housing Circumstances (select all [...] Dialysis Services: None. Living Will/Advance Directive/Power of Vtc Technician /Guardian: Denied. Additional Comments: Patient is not medically ready for discharge. SW will continue to follow. Mariia Monterroso SUPERVISOR SEWER SYSTEM * Care Plan - Emilia Alonso RN [...] from the original note were not included. [facility] Department of Surgery Division of [...] Prevention: activity supervised assistive device/personal items within [facility] fall prevention program maintained lighting [...] Agree with above assessment and evaluation from resident/HOT MOLDER. * Op Note - Terrell Gautam MD - 10/17/2024 8:52 AM EDT Operative Note Date: 10/17/24 Location: [place] [facility] Name: Bev Bobby, : 1960, Diagnoses: Pre-op Diagnosis Critical limb ischemia of left lower extremity Common femoral artery pseudoaneurysm Post-op Diagnosis Critical limb ischemia of left lower extremity Common femoral artery pseudoaneurysm Procedure(s): Left common/superficial/profunda femoral thromboendarterectomy with bovine patch repair Left external iliac artery/TEST SPECIALIST stent Attending Surgeon(s): * Terrell Gautam - Primary Pullman Car Clerk(s): * Luna Beckett MD - Resident - [...] Necessity Reasons Recent surgery contiguous with urinary tract/[employer]/colorectal 10/17/24 190 Output (mL) 50 mL 10/18/24 08 Implants Type Name Action Serial No. VASCUGUARD 8 X 8 - [id number] Implanted STENT ENDOPROSTHESIS VIABAHN 9FR [id number] - [id number] Implanted [id number] Specimen: Specimens ID Source Frozen? 1 Other [...] and distal control. We then proceeded with uiddi-iqh-uymd exposure of the popliteal artery. A medial [...] balloon dilated thestent with a 9 mm [place]. We closed the arteriotomy with a single [...] 10/17/2024 8:52 AM EDT Date: 10/17/24 Location: [place] [facility] Name: Bev Bobby, : 1960, Diagnoses: Pre-op Diagnosis Critical limb ischemia of left lower extremity Common femoral artery pseudoaneurysm Post-op Diagnosis Critical limb ischemia of left lower extremity Common femoral artery pseudoaneurysm Procedure(s): Left common/superficial/profunda femoral thromboendarterectomy with bovine patch repair Left external iliac artery/TEST SPECIALIST stent Attending Surgeon(s): * Terrell Gautam - Primary Pullman Car Clerk(s): * Luna Beckett MD - Resident - Assisting * Dandy Baltazar MD - Fellow Anesthesia: General ASA: III Blood Administration: Blood Product Administration History None Estimated Blood Loss: 300 mL Drains: Urethral Catheter Temperature probe 16 Fr. (Active) Implants Type Name Action Serial No. VASCUGUARD 8 X 8 - [id number] Implanted STENT ENDOPROSTHESIS VIABAHN 9FR [id number] - [id number] Implanted [id number] Specimen: Specimens ID Source Frozen? 1 Other [...] issues. 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 He previouslyunderwent thrombin injection. He reports pain in his calves. He presents today for scheduled left lower extremity femoral to xhoyf-xte-wknx popliteal bypass. Planned likely use PTFE. He [...] 16. Results Review {Vanishing Link Review Results :[id number] I have reviewed the latest lab and imaging results. Assessment & Plan Critical limb ischemia of left lower extremity Proceed with scheduled surgery left lower extremity femoral to tssna-jre-gnyt popliteal artery bypass graft. Extensive discussion had [...] Description 11/26/2024 2:00 PM EDT Hospital Encounter [facility] [address] [place] [address] 11/26/2024 2:30 PM EDT Hospital Encounter [facility] [address] [place] [address] 11/26/2024 3:20 PM EDT Office Visit [facility] [address] [facility] 5th Floor [address] [place] [address] Elisabet Schuster, PA [address] [facility] [address] [place] [address] 11/29/2024 2:30 PM EDT Office Visit [facility] [address] [place] [address] Oscar Appiah MD [address] [facility] [address] [place] [address] Pending Results Name Type Priority Associated Diagnoses [...] PREPARE RBC STAT 10/17/2024 8:06 AM EDT TX VEIN BYPASS GRAFT,FEM-POP 10/17/2024 7:38 AM EDT Critical limb ischemia of left lower extremity TYPE AND SCREEN Routine 10/17/2024 7:19 AM EDT POCT GLUCOSE METER UNSOLICITED RESULTS Routine 10/17/2024 6:44 AM EDT documented in this encounter Results * (ABNORMAL) POCT glucose meter (10/19/2024 11:40 AM EDT) [facility] POCT Glucose 207(H) 74 - 99 [...] Comment 10/19/2024 11:42 AM EDT HEALTHCARE LAB Job Lithographer ID KamranJob 10/20/19 11:42 AM EDT HEALTHCARE LAB Device ID [id number] 10/19/2024 11:42 AM EDT HEALTHCARE LAB Specimen Type POC Capillary 10/19/2024 11:42 AM EDT [facility] Blood Capillary blood specimen / Unknown 10/19/2024 11:40 AM EDT 10/19/2024 11:42 AM EDT us Terrell Gautam MD LAB POINT OF CARE TE ST DOCKED DEVICE UNSOLICITED RESULTS Final Result Performing Organization Address City/State/[facility] Co de Phone Number HEALTHCARE LAB [address] [place] [address] * (ABNORMAL) Protime-INR (10/19/2024 8:25 AM EDT) [facility] Prothrombin Time 17.5(H) 12.0 - 14.3 sec LAB COAGULATION METHOD 10/19/2024 9:25 AM EDT [facility] INR 1.4(H) 0.9 - 1.1 LAB COAGULATION METHOD 10/19/2024 9:25 AM EDT [facility] Blood Venous blood specimen / Unknown Venipuncture / Unknown 10/19/2024 8:25 AM EDT 10/19/2024 8:43 AM EDT Narrative [facility] - 10/19/2024 9:25 AM EDT OPTIMAL INR RANGES FOR PATIENT ON ORAL ANTICOAGULANT THERAPY Prevention of venous thromboembolism INR 2.0 to 3.0 In patients with heart disease: Atrial fibrillation INR 2.0 to 3.0 Valvular heart disease INR 2.0 to 3.0 Tissue heart valves INR 2.0 to 3.0 Mechanical prosthetic valves INR 2.5 to 3.5 Prevention of recurrent MN INR 2.5 to 3.5 us Nirmal Cueto MD LAB BLOOD ORDERABLES Final Result Performing Organization Address [facility]/ZIP Co de Phone Number [facility] [address] [place] [address] * (ABNORMAL) Phosphorus (10/19/2024 8:25 AM EDT) Phosphorus, Plasma 2.2(L) 2.5 - 4.5 mg/dL 10/19/2024 9:12 AM EDT [facility] Blood Venous blood specimen / Unknown Venipuncture / Unknown 10/19/2024 8:25 AM EDT 10/19/2024 8:43 AM EDT us Nirmal Cueto MD LAB BLOOD ORDERABLES Final Result Performing Organization Address [facility] Co de Phone Number [facility] [address] [place] [address] * Magnesium (10/19/2024 8:25 AM EDT) Magnesium, Plasma 2.1 1.9 - 2.4 mg/dL 10/19/2024 9:12 AM EDT [facility] Blood Venous blood specimen / Unknown Venipuncture / Unknown 10/19/2024 8:25 AM EDT 10/19/2024 8:43 AM EDT Nirmal Cueto MD LAB BLOOD ORDERABLES Final Result Performing Organization Address [facility] Co de Phone Number [facility] [address] [place] [address] * (ABNORMAL) Basic metabolic panel (10/19/2024 8:25 AM EDT) Glucose, Plasma 191(H) 74 - 99 mg/dL 10/19/2024 9:12 AM EDT [facility] BUN, Plasma 18 8 - 23 mg/dL 10/19/2024 9:12 AM EDT [facility] Creatinine, Plasma 0.76 0.70 - 1.20 mg/dL 10/19/2024 9:12 AM EDT [facility] BUN/Creatinine Ratio 24 10/19/2024 9:12 AM EDT [facility] Sodium, Plasma 135(L) 136 - 145 mmol/L 10/19/2024 9:12 AM EDT [facility] Potassium, Plasma 4.1 3.6 - 4.9 mmol/L 10/19/2024 9:12 AM EDT [facility] Chloride, Plasma 104 97 - 107 mmol/L 10/19/2024 9:12 AM EDT [facility] CO2, Plasma 22 22 - 29 mmol/L 10/19/2024 9:12 AM EDT [facility] Anion Gap 9 6 - 16 mmol/L 10/19/2024 9:12 AM EDT [facility] Total Calcium, Plasma 8.4(L) 8.9 - 10.2 mg/dL 10/19/2024 9:12 AM EDT [facility] eGFRcr 99.7 mL/min/1.7 3m*2 10/19/2024 9:12 AM EDT [facility] Comment:Reported eGFRcr in m L/min/1.73m2 is based the CKD-EPI 2020 equation that does not use a race coefficient. Blood Venous blood specimen / Unknown Venipuncture / Unknown 10/19/2024 8:25 AM EDT 10/19/2024 8:43 AM EDT us Nirmal Cueto MD LAB BLOOD ORDERABLES Final Result [facility] [address] [place] [address] * (ABNORMAL) CBC W/O Differential (10/19/2024 8:25 AM EDT) WBC Count 14.10(H) 3.70 - 10.30 10*3/uL LAB HEMATOLOGY METHOD 10/19/2024 8:52 AM EDT [facility] RBC Count 2.61(L) 4.60 - 6.10 10*6/uL LAB HEMATOLOGY METHOD 10/19/2024 8:52 AM EDT [facility] HGB 8.0(L) 13.7 - 17.5 g/dL LAB HEMATOLOGY METHOD 10/19/2024 8:52 AM EDT [facility] HCT 24.3(L) 40.0 - 51.0 % LAB HEMATOLOGY METHOD 10/19/2024 8:52 AM EDT [facility] Platelet Count 318 155 - 369 10*3/uL LAB HEMATOLOGY METHOD 10/19/2024 8:52 AM EDT [facility] MCV 93 79 - 98 fL LAB HEMATOLOGY METHOD 10/19/2024 8:52 AM EDT [facility] MCH 30.7 26.0 - 32.0 pg LAB HEMATOLOGY METHOD 10/19/2024 8:52 AM EDT [facility] MCHC 32.9 30.7 - 35.5 g/dL LAB HEMATOLOGY METHOD 10/19/2024 8:52 AM EDT [facility] RDW 13.4 11.5 - 14.5 % LAB HEMATOLOGY METHOD 10/19/2024 8:52 AM EDT [facility] MPV 9.6 8.8 - 12.5 fL LAB HEMATOLOGY METHOD 10/19/2024 8:52 AM EDT [facility] nRBC 0.0 <=0.0 per 100 WBCs LAB HEMATOLOGY METHOD 10/19/2024 8:52 AM EDT [facility] Blood Venous blood specimen / Unknown Venipuncture / Unknown 10/19/2024 8:25 AM EDT 10/19/2024 8:44 AM EDT us Nirmal Cueto MD LAB BLOOD ORDERABLES Final Result [facility] [address] [place] [address] * (ABNORMAL) POCT glucose meter (10/19/2024 7:35 AM EDT) [facility] POCT Glucose 187(H) 74 - [...] Comment 10/19/2024 7:37 AM EDT HEALTHCARE LAB Job Lithographer ID Job Andrew 10/20/19 7:37 AM EDT HEALTHCARE LAB Device ID [id number] 10/19/2024 7:37 AM EDT HEALTHCARE LAB Specimen Type POC Capillary 10/19/2024 7:37 AM EDT [facility]ALTHCARE LAB Blood Capillary blood specimen / Unknown 10/19/2024 7:35 AM EDT 10/19/2024 7:37 AM EDT us Terrell Gautam MD LAB POINT OF CARE TE ST DOCKED DEVICE UNSOLICITED RESULTS Final Result Performing Organization Address City/State/[facility] Co de Phone Number HEALTHCARE LAB [address] [place] [address] * (ABNORMAL) POCT glucose meter (10/18/2024 7:22 [...] Comment 10/18/2024 7:24 PM EDT HEALTHCARE LAB Job Lithographer ID Mahesh Aldana 10/18/2024 7:24 PM EDT HEALTHCARE LAB Device ID [id number] 10/18/2024 7:24 PM EDT HEALTHCARE LAB Specimen Type POC Capillary 10/18/2024 7:24 PM EDT HEALTHCARE LAB Blood Capillary blood specimen / Unknown 10/18/2024 7:22 PM EDT 10/18/2024 7:24 PM EDT us Terrell Gautam MD LAB POINT OF CARE TE ST DOCKED DEVICE UNSOLICITED RESULTS Final Result Performing Organization Address City/[facility] Co de Phone Number [facility] [address] [place] [address] * (ABNORMAL) POCT glucose meter (10/18/2024 6:07 [...] Comment 10/18/2024 6:09 PM EDT HEALTHCARE LAB Job Lithographer ID David Parks 10/18/2024 6:09 PM EDT HEALTHCARE LAB Device ID [id number] 10/18/2024 6:09 PM EDT HEALTHCARE LAB Specimen Type POC Capillary 10/18/2024 6:09 PM EDT [facility] Blood Capillary blood specimen / Unknown 10/18/2024 6:07 PM EDT 10/18/2024 6:09 PM EDT Terrell Gautam MD LAB POINT OF CARE TE ST DOCKED DEVICE UNSOLICITED RESULTS Final Result Performing Organization Address City/[facility] Co de Phone Number [facility] [address] [place] [address] * (ABNORMAL) POCT glucose meter (10/18/2024 11:56 AM EDT) Pathologist [facility] POCT Glucose 233(H) 74 - 99 mg/dL [...] 10/21/2024 7:42 AM EDT [facility] Job Lithographer ID Venessa Marcano 10/21/2024 7:42 AM EDT [facility] Device ID [id number] 10/21/2024 7:42 AM EDT HEALTHCARE LAB Specimen Type POC Capillary 10/21/2024 7:42 AM EDT HEALTHCARE LAB Blood Capillary blood specimen / Unknown 10/18/2024 11:56 AM EDT 10/21/2024 7:42 AM EDT us Terrell Gautam MD LAB POINT OF CARE TE ST DOCKED DEVICE UNSOLICITED RESULTS Final Result Performing Organization Address [facility] Co de Phone Number [facility] [address] [place] [address] * (ABNORMAL) POCT glucose meter (10/18/2024 9:24 AM EDT) [facility] POCT Glucose 322(H) 74 - [...] Comment 10/21/2024 7:42 AM EDT HEALTHCARE LAB Job Lithographer ID Emilia Alonso 7:42 AM EDT HEALTHCARE LAB Device ID [id number] 10/21/2024 7:42 AM EDT HEALTHCARE LAB Specimen Type POC Venous 10/21/2024 7:42 AM EDT HEALTHCARE LAB Blood Venous blood specimen / Unknown 10/18/2024 9:24 AM EDT 10/21/2024 7:42 AM EDT us Terrell Gautam MD LAB POINT OF CARE TE ST DOCKED DEVICE UNSOLICITED RESULTS Final Result Performing Organization Address City/[facility] Co de Phone Number [facility] [address] [place] [address] * (ABNORMAL) POCT glucose meter (10/18/2024 7:36 AM EDT) [facility] POCT Glucose 215(H) 74 - [...] Comment 10/18/2024 7:38 AM EDT HEALTHCARE LAB Job Lithographer ID Kizzy Godfrey 025 7:38 AM EDT HEALTHCARE LAB Device ID [id number] 10/18/2024 7:38 AM EDT [facility] Specimen Type POC Capillary 10/18/2024 7:38 AM EDT [facility] Blood Capillary blood specimen / Unknown 10/18/2024 7:36 AM EDT 10/18/2024 7:38 AM EDT us Terrell Gautam MD LAB POINT OF CARE TE ST DOCKED DEVICE UNSOLICITED RESULTS Final Result [facility]ARE LAB [address] [place] [address] * (ABNORMAL) CBC (10/18/2024 2:09 AM EDT) [facility] WBC Count 16.71(H) 3.70 - 10.30 10*3/uL LAB HEMATOLOGY METHOD 10/18/2024 2:33 AM EDT [facility] RBC Count 2.78(L) 4.60 - 6.10 10*6/uL LAB HEMATOLOGY METHOD 10/18/2024 2:33 AM EDT [facility] HGB 8.5(L) 13.7 - 17.5 g/dL LAB HEMATOLOGY METHOD 10/18/2024 2:33 AM EDT [facility] HCT 25.7(L) 40.0 - 51.0 % LAB HEMATOLOGY METHOD 10/18/2024 2:33 AM EDT [facility] Platelet Count 324 155 - 369 10*3/uL LAB HEMATOLOGY METHOD 10/18/2024 2:33 AM EDT [facility] MCV 92 79 - 98 fL LAB HEMATOLOGY METHOD 10/18/2024 2:33 AM EDT [facility] MCH 30.6 26.0 - 32.0 pg LAB HEMATOLOGY METHOD 10/18/2024 2:33 AM EDT [facility] MCHC 33.1 30.7 - 35.5 g/dL LAB HEMATOLOGY METHOD 10/18/2024 2:33 AM EDT [facility] RDW 13.3 11.5 - 14.5 % LAB HEMATOLOGY METHOD 10/18/2024 2:33 AM EDT [facility] [facility] MPV 9.4 8.8 - 12.5 fL LAB HEMATOLOGY METHOD 10/18/2024 2:33 AM EDT [facility] nRBC 0.0 <=0.0 per 100 WBCs LAB HEMATOLOGY METHOD 10/18/2024 2:33 AM EDT [facility] Blood Venous blood specimen / Unknown Venipuncture / Unknown 10/18/2024 2:09 AM EDT 10/18/2024 2:25 AM EDT Nirmal Cueto MD LAB BLOOD ORDERABLES Final Result [facility] [address] [place] [address] * (ABNORMAL) Basic metabolic panel (10/18/2024 2:09 AM EDT) Glucose, Plasma 206(H) 74 - 99 mg/dL 10/18/2024 2:53 AM EDT [facility] BUN, Plasma 24(H) 8 - 23 mg/dL 10/18/2024 2:53 AM EDT [facility] Creatinine, Plasma 1.17 0.70 - 1.20 mg/dL 10/18/2024 2:53 AM EDT [facility] BUN/Creatinine Ratio 21 10/18/2024 2:53 AM EDT [facility] Sodium, Plasma 136 136 - 145 mmol/L 10/18/2024 2:53 AM EDT [facility] Potassium, Plasma 4.8 3.6 - 4.9 mmol/L 10/18/2024 2:53 AM EDT [facility] Chloride, Plasma 104 97 - 107 mmol/L 10/18/2024 2:53 AM EDT [facility] CO2, Plasma 22 22 - 29 mmol/L 10/18/2024 2:53 AM EDT [facility] Anion Gap 10 6 - 16 mmol/L 10/18/2024 2:53 AM EDT [facility] Total Calcium, Plasma 8.5(L) 8.9 - 10.2 mg/dL 10/18/2024 2:53 AM EDT [facility] eGFRcr 69.2 mL/min/1.7 3m*2 10/18/2024 2:53 AM EDT [facility] Comment:Reported eGFRcr in m L/min/1.73m2 is based the CKD-EPI 2020 equation that does not use a race coefficient. Blood Venous blood specimen / Unknown Venipuncture / Unknown 10/18/2024 2:09 AM EDT 10/18/2024 2:25 AM EDT Nirmal Cueto MD LAB BLOOD ORDERABLES Final Result Performing Organization Address City/[facility]/ZIP Co de Phone Number [facility] [address] [place] [address] * (ABNORMAL) Magnesium (10/18/2024 2:09 AM EDT) Magnesium, Plasma 1.8(L) 1.9 - 2.4 mg/dL 10/18/2024 2:53 AM EDT [facility] Blood Venous blood specimen / Unknown Venipuncture / Unknown 10/18/2024 2:09 AM EDT 10/18/2024 2:25 AM EDT Nirmal Cueto MD LAB BLOOD ORDERABLES Final Result [facility] [address] [place] [address] * Phosphorus (10/18/2024 2:09 AM EDT) Phosphorus, Plasma 3.7 2.5 - 4.5 mg/dL 10/18/2024 2:53 AM EDT [facility] Blood Venous blood specimen / Unknown Venipuncture / Unknown 10/18/2024 2:09 AM EDT 10/18/2024 2:25 AM EDT Nirmal Cueto MD LAB BLOOD ORDERABLES Final Result Performing Organization Address [facility] Co de Phone Number [facility] [address] [place] [address] * (ABNORMAL) Protime-INR (10/18/2024 2:09 AM EDT) Prothrombin Time 14.5(H) 12.0 - 14.3 sec LAB COAGULATION METHOD 10/18/2024 2:53 AM EDT [facility] INR 1.1 0.9 - 1.1 LAB COAGULATION METHOD 10/18/2024 2:53 AM EDT [facility] Blood Venous blood specimen / Unknown Venipuncture / Unknown 10/18/2024 2:09 AM EDT 10/18/2024 2:25 AM EDT Narrative [facility] - 10/18/2024 2:53 AM EDT OPTIMAL INR RANGES FOR PATIENT ON ORAL ANTICOAGULANT THERAPY Prevention of venous thromboembolism INR 2.0 to 3.0 In patients with heart disease: Atrial fibrillation INR 2.0 to 3.0 Valvular heart disease INR 2.0 to 3.0 Tissue heart valves INR 2.0 to 3.0 Mechanical prosthetic valves INR 2.5 to 3.5 Prevention of recurrent MN INR 2.5 to 3.5 Nirmal Cueto MD LAB BLOOD ORDERABLES Final Result Performing Organization Address [facility] Co de Phone Number [facility] [address] [place] [address] * (ABNORMAL) POCT glucose meter (10/18/2024 2:08 AM EDT) POCT Glucose 202(H) 74 - 99 mg/dL 10/18/2024 2:10 AM EDT [facility] Comment:Accuracy of a glucos e [...] Comment 10/18/2024 2:10 AM EDT HEALTHCARE LAB Job Lithographer ID Jourdan Grimes II 10/18/2024 2:10 AM EDT HEALTHCARE LAB Device ID [id number] 10/18/2024 2:10 AM EDT [facility] LAB Specimen Type POC Capillary 10/18/2024 2:10 AM EDT [facility] Blood Capillary blood specimen / Unknown 10/18/2024 2:08 AM EDT 10/18/2024 2:10 AM EDT us Terrell Gautam MD LAB POINT OF CARE TE ST DOCKED DEVICE UNSOLICITED RESULTS Final Result Performing Organization Address City/State/[facility] Phone Number HEALTHCARE LAB [address] [place] [address] * (ABNORMAL) POCT glucose meter (10/17/2024 10:07 PM EDT) [facility] POCT Glucose 300(H) 74 - [...] Comment 10/17/2024 10:10 PM EDT HEALTHCARE LAB Job Lithographer ID Jourdan Grimes II 10/17/2024 10:10 PM EDT HEALTHCARE LAB Device ID [id number] 10/17/2024 10:10 PM EDT HEALTH[facility]ARE LAB Specimen Type POC Capillary 10/17/2024 10:10 PM EDT [facility] Blood Capillary blood specimen / Unknown 10/17/2024 10:07 PM EDT 10/17/2024 10:10 PM EDT us Terrell Gautam MD LAB POINT OF CARE TE ST DOCKED DEVICE UNSOLICITED RESULTS Final Result Performing Organization Address City/State/[facility] Co de Phone Number HEALTHCARE LAB [address] [place] [address] * (ABNORMAL) POCT glucose meter (10/17/2024 8:07 PM EDT) [facility] POCT Glucose 391(H) 74 - [...] Comment 10/17/2024 8:10 PM EDT HEALTHCARE LAB Job Lithographer ID Cornelio WALTERS Jourdan 10/17/2024 8:10 PM EDT HEALTHCARE LAB Device ID [id number] 10/17/2024 8:10 PM EDT [facility] Specimen Type POC Capillary 10/17/2024 8:10 PM EDT [facility] Blood Capillary blood specimen / Unknown 10/17/2024 8:07 PM EDT 10/17/2024 8:10 PM EDT Terrell Gautam MD LAB POINT OF CARE TE ST DOCKED DEVICE UNSOLICITED RESULTS Final Result Performing Organization Address [facility] Co de Phone Number HEALTHCARE LAB [address] [place] [address] * (ABNORMAL) POCT glucose meter (10/17/2024 4:01 PM EDT) [facility] POCT Glucose 249(H) 74 - [...] 10/17/2024 4:03 PM EDT [facility] Job Lithographer ID Chelsieamanda Keisha 10/17/2024 4:03 PM EDT [facility] Device ID [id number] 10/17/2024 4:03 PM EDT [facility] Specimen Type POC Capillary 10/17/2024 4:03 PM EDT [facility]ALTH[facility]ARE LAB Blood Capillary blood specimen / Unknown 10/17/2024 4:01 PM EDT 10/17/2024 4:03 PM EDT us Terrell Gautam MD LAB POINT OF CARE TE ST DOCKED DEVICE UNSOLICITED RESULTS Final Result Performing Organization Address City/[facility] Co de Phone Number [facility] [address] [place] [address] * (ABNORMAL) POCT glucose meter (10/17/2024 1:25 PM EDT) [facility] Signature POCT Glucose 225(H) 74 - [...] 10/17/2024 1:27 PM EDT [facility] Job Lithographer ID Kizzy Godfrey 025 1:27 PM EDT [facility] Device ID [id number] 10/17/2024 1:27 PM EDT [facility] Specimen Type POC Capillary 10/17/2024 1:27 PM EDT HEALTH[facility]ARE LAB Blood Capillary blood specimen / Unknown 10/17/2024 1:25 PM EDT 10/17/2024 1:27 PM EDT us Terrell Gautam MD LAB POINT OF CARE TE ST DOCKED DEVICE UNSOLICITED RESULTS Final Result Performing Organization Address City/[facility] Co de Phone Number [facility] [address] [place] [address] * [place] Less than 1 Hour Intraoperative [...] Seconds 10/29/2024 7:28 AM EDT HEALTHCARE LAB Job Lithographer ID Donna Mcmillan 10/29/2024 7:28 AM EDT HEALTHCARE LAB ACT Device ID [id number] 10/29/2024 7:28 AM EDT [facility] Comment 10/29/2024 7:28 AM EDT [facility] Comment: ACT performed by [...] UNSOLICITED RESULTS Final Result Performing Organization Address City/[facility] de Phone Number [facility] [address] LAB [address] [place] [address] * (ABNORMAL) Blood gas, arterial (10/17/2024 11:48 AM EDT) pH, Arterial 7.34 7.31 - 7.42 LAB HEMATOLOGY METHOD 10/17/2024 11:54 AM EDT [facility] pCO2, Arterial 41 32 - 45 mmHg LAB HEMATOLOGY METHOD 10/17/2024 11:54 AM EDT [facility] pO2, Arterial 202 >80 mmHg LAB HEMATOLOGY METHOD 10/17/2024 11:54 AM EDT [facility] SO2, Measured, Arterial 100(H) 94 - 98 % LAB HEMATOLOGY METHOD 10/17/2024 11:54 AM EDT [facility] Base Excess, Arterial -3.2(L) -2.0 - 3.0 mmol/L LAB HEMATOLOGY METHOD 10/17/2024 11:54 AM EDT [facility] Bicarbonate, Calculated, Arterial 22 22 - 26 mmol/L LAB HEMATOLOGY METHOD 10/17/2024 11:54 AM EDT [facility] Hematocrit, Whole Blood 28.6(L) 40.0 - 51.0 % LAB HEMATOLOGY METHOD 10/17/2024 11:54 AM EDT [facility] Sodium, Whole Blood 137 136 - 145 mmol/L LAB HEMATOLOGY METHOD 10/17/2024 11:54 AM EDT [facility] Potassium, Whole Blood 4.5 3.6 - 4.9 mmol/L LAB HEMATOLOGY METHOD 10/17/2024 11:54 AM EDT [facility] Chloride, Whole Blood 112(H) 97 - 107 mmol/L LAB HEMATOLOGY METHOD 10/17/2024 11:54 AM EDT [facility] Glucose, Whole Blood 201(H) 74 - 99 mg/dL LAB HEMATOLOGY METHOD 10/17/2024 11:54 AM EDT [facility] Ionized Calcium, Whole Blood 4.8 4.6 - 5.1 mg/dL LAB HEMATOLOGY METHOD 10/17/2024 11:54 AM EDT [facility] Lactate, Arterial, Whole Blood 2.3(H) 0.5 - 1.6 mmol/L LAB HEMATOLOGY METHOD 10/17/2024 11:54 AM EDT [facility] Blood Arterial blood specimen / Unknown Arterial Puncture / Unknown 10/17/2024 11:48 AM EDT 10/17/2024 11:53 AM EDT us Jenna Lopez CRNA LAB BLOOD ORDERABLES Final Re sult [facility] [address] [place] [address] * POCT ACT (10/17/2024 11:41 AM EDT) ACT+ (HIGH RANGE) 175 68 - 600 Seconds 10/29/2024 7:28 AM EDT [facility] Job Lithographer ID Oneyda Alicea 10/29/2024 7:28 AM EDT [facility] ACT Device ID [id number] 10/29/2024 7:28 AM EDT [facility] Comment 10/29/2024 7:28 AM EDT [facility] Comment: ACT performed by staff at [...] Final Result Performing Organization Address [facility] Co de Phone Number HEALTHCARE LAB [address] LAB [address] [place] [address] * POCT ACT (10/17/2024 11:11 AM EDT) [facility] Signature ACT+ (HIGH RANGE) 252 68 - 600 Seconds 10/29/2024 7:28 AM EDT [facility] Job Lithographer ID Donna Mcmillan 10/29/2024 7:28 AM EDT [facility] ACT Device ID [id number] 10/29/2024 7:28 AM EDT [facility] Comment 10/29/2024 7:28 AM EDT [facility] Comment: ACT performed by staff at [...] UNSOLICITED RESULTS Final Result Performing Organization Address City/[facility] Co de Phone Number HEALTHCARE LAB [address] LAB [address] [place] [address] * (ABNORMAL) Blood gas, arterial (10/17/2024 10:46 AM EDT) pH, Arterial 7.35 7.31 - 7.42 LAB HEMATOLOGY METHOD 10/17/2024 10:56 AM EDT [facility] pCO2, Arterial 42 32 - 45 mmHg LAB HEMATOLOGY METHOD 10/17/2024 10:56 AM EDT [facility] pO2, Arterial 161 >80 mmHg LAB HEMATOLOGY METHOD 10/17/2024 10:56 AM EDT [facility] SO2, Measured, Arterial 100(H) 94 - 98 % LAB HEMATOLOGY METHOD 10/17/2024 10:56 AM EDT [facility] Base Excess, Arterial -2.2(L) -2.0 - 3.0 mmol/L LAB HEMATOLOGY METHOD 10/17/2024 10:56 AM EDT [facility] Bicarbonate, Calculated, Arterial 23 22 - 26 mmol/L LAB HEMATOLOGY METHOD 10/17/2024 10:56 AM EDT [facility] Hematocrit, Whole Blood 29.9(L) 40.0 - 51.0 % LAB HEMATOLOGY METHOD 10/17/2024 10:56 AM EDT [facility] Sodium, Whole Blood 138 136 - 145 mmol/L LAB HEMATOLOGY METHOD 10/17/2024 10:56 AM EDT [facility] Potassium, Whole Blood 4.0 3.6 - 4.9 mmol/L LAB HEMATOLOGY METHOD 10/17/2024 10:56 AM EDT [facility] Chloride, Whole Blood 110(H) 97 - 107 mmol/L LAB HEMATOLOGY METHOD 10/17/2024 10:56 AM EDT [facility] Glucose, Whole Blood 174(H) 74 - 99 mg/dL LAB HEMATOLOGY METHOD 10/17/2024 10:56 AM EDT [facility] Ionized Calcium, Whole Blood 5.1 4.6 - 5.1 mg/dL LAB HEMATOLOGY METHOD 10/17/2024 10:56 AM EDT [facility] Lactate, Arterial, Whole Blood 1.4 0.5 - 1.6 mmol/L LAB HEMATOLOGY METHOD 10/17/2024 10:56 AM EDT [facility] Blood Arterial blood specimen / Unknown Arterial Puncture / Unknown 10/17/2024 10:46 AM EDT 10/17/2024 10:54 AM EDT us Jenna Munira Lopez [facility] LAB BLOOD ORDERABLES Final Re sult Performing Organization Address [facility] Co de Phone Number [facility] [address] [place] [address] * POCT ACT (10/17/2024 10:37 AM EDT) ACT+ (HIGH RANGE) 206 68 - 600 Seconds 10/29/2024 7:28 AM EDT HEALTHCARE LAB Job Lithographer ID Donna Mcmillan 10/29/2024 7:28 AM EDT [facility] ACT Device ID [id number] 10/29/2024 7:28 AM EDT [facility] Comment 10/29/2024 7:28 AM EDT [facility] Comment: ACT performed by [...] Final Result Performing Organization Address [facility] de Phone Number [facility] [address] [place] [address] * Surgical Pathology Exam (10/17/2024 10:27 AM EDT) Case Report Surgical Pathology Case: [id number] Authorizing Provider: Terrell Gautam MD Collected: 10/17/2024 1027 Ordering Location: [facility] A OPERATING ROOM Received: 10/17/2024 1325 Pathologist: Haydee Osborne MD Specimen: Other (specify site), left common femoral plaque 10/21/2024 10:16 AM EDT [facility] Final Diagnosis A. LEFT COMMON FEMORAL PLAQUE, EXCISION: - CALCIFIED PLAQUE 10/21/2024 10:16 AM EDT [facility] at 1016 EDT Clinical Information Critical limb ischemia of left lower extremity [I70.222] 10/21/2024 10:16 AM EDT [facility] Gross Description A. LEFT COMMON FEMORAL PLAQUE Received in formalin labeled l eft common femoral plaque , is one aggregate of red-gabriel hard portions of plaque measuring 3.7 x 2.5 x 0.9 cm. The specimen is serially sectioned and senior human resources representative sections are submitted in cassette A1. Cold Time: <1m Kenia Aceves 10/21/2024 10:16 AM EDT [facility] Note: A resident was involved in the service. I attest I examined the relevant preparations for the specimens and confirmed the diagnosis or interpretation. 10/21/2024 10:16 AM EDT [facility] Tissue Topography unknown / Unknown 10/17/2024 10:27 AM EDT 10/17/2024 1:25 PM EDT Comment:Pre-op diagnosis: Critical limb ischemia of left lower extremity [I70.222] us Terrell Gautam MD LAB PATHOLOGY ORDERABLES Gwen grimaldo Result [facility] [address] [place] [address] * POCT ACT (10/17/2024 10:03 AM EDT) ACT+ (HIGH RANGE) 244 68 - 600 Seconds 10/29/2024 7:28 AM EDT [facility] Job Lithographer ID Donna Mcmillan 10/29/2024 7:28 AM EDT HEALTHCARE LAB ACT Device ID [id number] 10/29/2024 7:28 AM EDT HEALTHCARE LAB Comment 10/29/2024 7:28 AM EDT [facility] Comment: ACT performed by [...] DOCKED DEVICE UNSOLICITED RESULTS Final Result [facility] [address] LAB [address] [place] [address] * (ABNORMAL) Blood gas, arterial (10/17/2024 9:45 AM EDT) pH, Arterial 7.37 7.31 - 7.42 LAB HEMATOLOGY METHOD 10/17/2024 9:55 AM EDT [facility] pCO2, Arterial 43 32 - 45 mmHg LAB HEMATOLOGY METHOD 10/17/2024 9:55 AM EDT [facility] pO2, Arterial 177 >80 mmHg LAB HEMATOLOGY METHOD 10/17/2024 9:55 AM EDT [facility] SO2, Measured, Arterial 100(H) 94 - 98 % LAB HEMATOLOGY METHOD 10/17/2024 9:55 AM EDT [facility] Base Excess, Arterial -0.5 -2.0 - 3.0 mmol/L LAB HEMATOLOGY METHOD 10/17/2024 9:55 AM EDT [facility] Bicarbonate, Calculated, Arterial 25 22 - 26 mmol/L LAB HEMATOLOGY METHOD 10/17/2024 9:55 AM EDT [facility] Hematocrit, Whole Blood 30.0(L) 40.0 - 51.0 % LAB HEMATOLOGY METHOD 10/17/2024 9:55 AM EDT [facility] Sodium, Whole Blood 137 136 - 145 mmol/L LAB HEMATOLOGY METHOD 10/17/2024 9:55 AM EDT [facility] Potassium, Whole Blood 4.3 3.6 - 4.9 mmol/L LAB HEMATOLOGY METHOD 10/17/2024 9:55 AM EDT [facility] Chloride, Whole Blood 108(H) 97 - 107 mmol/L LAB HEMATOLOGY METHOD 10/17/2024 9:55 AM EDT [facility] Glucose, Whole Blood 191(H) 74 - 99 mg/dL LAB HEMATOLOGY METHOD 10/17/2024 9:55 AM EDT [facility] Ionized Calcium, Whole Blood 5.0 4.6 - 5.1 mg/dL LAB HEMATOLOGY METHOD 10/17/2024 9:55 AM EDT [facility] Lactate, Arterial, Whole Blood 1.3 0.5 - 1.6 mmol/L LAB HEMATOLOGY METHOD 10/17/2024 9:55 AM EDT [facility] Blood Arterial blood specimen / Unknown Arterial Line / Unknown 10/17/2024 9:45 AM EDT 10/17/2024 9:52 AM EDT us Jenna Lopez CRNA LAB BLOOD ORDERABLES Final Re sult [facility] [address] [place] [address] * (ABNORMAL) Blood gas, arterial (10/17/2024 8:47 AM EDT) pH, Arterial 7.37 7.31 - 7.42 LAB HEMATOLOGY METHOD 10/17/2024 8:59 AM EDT [facility] pCO2, Arterial 43 32 - 45 mmHg LAB HEMATOLOGY METHOD 10/17/2024 8:59 AM EDT [facility] pO2, Arterial 205 >80 mmHg LAB HEMATOLOGY METHOD 10/17/2024 8:59 AM EDT [facility] SO2, Measured, Arterial 100(H) 94 - 98 % LAB HEMATOLOGY METHOD 10/17/2024 8:59 AM EDT [facility] Base Excess, Arterial -0.3 -2.0 - 3.0 mmol/L LAB HEMATOLOGY METHOD 10/17/2024 8:59 AM EDT [facility] Bicarbonate, Calculated, Arterial 25 22 - 26 mmol/L LAB HEMATOLOGY METHOD 10/17/2024 8:59 AM EDT [facility] Hematocrit, Whole Blood 31.3(L) 40.0 - 51.0 % LAB HEMATOLOGY METHOD 10/17/2024 8:59 AM EDT [facility] Sodium, Whole Blood 138 136 - 145 mmol/L LAB HEMATOLOGY METHOD 10/17/2024 8:59 AM EDT [facility] Potassium, Whole Blood 4.0 3.6 - 4.9 mmol/L LAB HEMATOLOGY METHOD 10/17/2024 8:59 AM EDT [facility] Chloride, Whole Blood 108(H) 97 - 107 mmol/L LAB HEMATOLOGY METHOD 10/17/2024 8:59 AM EDT [facility] Glucose, Whole Blood 162(H) 74 - 99 mg/dL LAB HEMATOLOGY METHOD 10/17/2024 8:59 AM EDT [facility] Ionized Calcium, Whole Blood 5.2(H) 4.6 - 5.1 mg/dL LAB HEMATOLOGY METHOD 10/17/2024 8:59 AM EDT [facility] Lactate, Arterial, Whole Blood 1.7(H) 0.5 - 1.6 mmol/L LAB HEMATOLOGY METHOD 10/17/2024 8:59 AM EDT [facility] Blood Arterial blood specimen / Unknown Arterial Puncture / Unknown 10/17/2024 8:47 AM EDT 10/17/2024 8:58 AM EDT us Jenna Lopez CRNA LAB BLOOD ORDERABLES Final Re sult [facility] [address] [place] [address] * POCT ACT (10/17/2024 8:46 AM EDT) ACT+ (HIGH RANGE) 101 68 - 600 Seconds 10/29/2024 7:28 AM EDT [facility] Job Lithographer ID Donna Mcmillan 10/29/2024 7:28 AM EDT [facility] ACT Device ID [id number] 10/29/2024 7:28 AM EDT [facility] Comment 10/29/2024 7:28 AM EDT [facility] Comment: ACT performed by [...] RESULTS Final Result [facility] [address] LAB [address] [place] [address] * Type and Screen (10/17/2024 7:19 AM [...] Final Result Performing Organization Address [facility] Co de Phone Number BLOOD BANK [address] [place] [address] * (ABNORMAL) POCT glucose meter (10/17/2024 6:44 AM EDT) [facility] POCT Glucose 178(H) 74 - [...] 10/17/2024 6:49 AM EDT [facility] Job Lithographer ID Hunter Burroughs 10/18/19 6:49 AM EDT [facility] Device ID [id number] 10/17/2024 6:49 AM EDT [facility] Specimen Type POC Capillary 10/17/2024 6:49 AM EDT [facility] Blood Capillary blood specimen / Unknown 10/17/2024 6:44 AM EDT 10/17/2024 6:49 AM EDT us Terrell Gautam MD LAB POINT OF CARE TE ST DOCKED DEVICE UNSOLICITED RESULTS Final Result [facility] [address] [place] [id number] documented in this encounter Visit Diagnoses Diagnosis [...] Provider: Tanja Denise RN)1945 (Given - Provider: Jouradn Grimes II, CHRISTIAN) 0726 (Canceled Entry - [...] documented as of this encounter Care Teams [employer] Installer Relationship Specialty Start Date End Date Asad Victor MD [address] [place] [id number] PCP - General 10/07/22 documented as of this encounter
--- OUTSIDE RECORDS SUMMARY | 2024-11-05 21:45 | XMS_ITS | Encounter Summary ---
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 Independent Right upper extremity support, Left upper extremity support (via rollator) STANDARDIZED ASSESSMENTS [facility] 6-Click Daily Activities Help from Other: Don/Doff Regular Lower Body Clothings: None Help From Other: Bathing: None Help From Other: Toileting: None Help From Other: Don/Doff Upper Body Clothings: None Help From Other: Grooming: None Help From Other: Eating Meals: None [facility] 6 Click - Daily Activities Score: 24 [...] needed areas of treatment space. Level of [place] Interventions Grooming Modified independent Standing sinkside Pt [...] Note Bev Borja 64 y.o. male CSN: [id number] Admission: 11/05/2024 9:45 PM Primary Problem: Wound infection SW went to bedside to discuss placement options for modified OPAT. Per patient, ID stated he would be able to dc home with a PICC and home antibiotics. SW relayed message to team. Wound vac order sent to [place] at for potential Monday discharge if patient does go home. SW will continue to follow and assist as needed. Mariia Macedo RESOURCE ROOM TEACHER * Progress Notes - Bianca Knight PharmD [...] from the original note were not included. [facility] Department of Surgery Division of Vascular Surgery Surgery Progress Note 11/08/24 Bev Borja Subjective Subjective: HPI 64yoM PMHx COPD, T2DM, HLD, HTN, RLS, CAD s/p PCI (on Xarelto) s/p pacemaker c/b left SANDIP pseudoaneurysm s/p thrombin injection 09/21/24, CLI s/p left femoral endarterectomy with EIA/PARALEGAL INSTRUCTOR stenting 10/17/24, who presented to [facility] 11/05/2024 with wound infection. 11/06/24: [...] MD Home meds Hold blood thinners Diabetes ([facility]) Overview Addendum 10/19/2021 10:41 AM by [...] completed 10/19 Pseudoaneurysm of left femoral artery ([facility]) COPD (chronic obstructive pulmonary disease) ([facility]) Overview Signed 10/18/2021 7:30 PM by Gallo Gallardo MD Not on home inhalers A-fib ([facility]) Overview Addendum 10/19/2021 10:39 AM by Giovanna Junior APRN Hold anticoagulation Metoprolol restarted BPH (benign prostatic hyperplasia) Overview Addendum 10/19/2021 10:41 AM by Giovanna Junior APRN Flomax restarted Subarachnoid hemorrhage ([facility]) Overview Addendum 10/20/2021 8:23 AM by Giovanna Junior APRN Left frontal, right occipital NSGY consulted - Repeat CTH showing slight worsening of tSAH - no need for further imaging, will continue to follow clinically 10/20: spoke with NSGY via phone and stated to hold ASA and Xarelto for 2 weeks Closed compression fracture of L3 lumbar vertebra, initial encounter ([facility]) Overview Signed 10/18/2021 7:35 PM by [...] 09/21/24, CLI s/p left femoral endarterectomy with EIA/PARALEGAL INSTRUCTOR stenting 10/17/24, who presented to [facility] 11/05/2024 with wound infection. POD [...] 1960 Age: 64 y.o. 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 Lead integrity [...] recommendations. Supporting reports can be found in [employer] file. Micro: Susceptibility data from last 90 days. Collected Specimen Info Organism 11/06/24 Tissue from Other (specify site) Gram Negative Jesus 11/06/24 Swab from Other (specify site) Enterobacter cloacae complex Results Procedure Component Value Units Date/Time Fungal Culture, Routine [[id number]] Collected: 11/06/241127 Order Status: Completed Specimen: Swab from Other (specify site) Updated: 11/08/24 0919 Culture No Fungal Growth <1 Week Fungal Culture, Routine [[id number]] Collected: 11/06/241128 Order Status: Completed Specimen: Swab from Other (specify site) Updated: 11/08/24 0919 Culture No Fungal Growth <1 Week Fungal Culture, Tissue and ISIDRO [[id number]] Collected: 11/06/24 113 Order Status: Completed Specimen: Tissue from Other (specify site) Updated: 11/08/24 0912 Culture Reading Mycological 4 Weeks No Fungal Growth <1 Week ISIDRO No fungal elements seen Blood Culture (Aerobic/Anaerobet Set) [[id number]] Collected: 11/06/24106 Order Status: Completed Specimen: Blood from AC, Left Updated: 11/08/24 0302 Culture No growth at day 2 Blood Culture (Aerobic/Anaerobet Set) [[id number]] Collected: 11/06/24106 Order Status: Completed Specimen: Blood from Hand, Right Updated: 11/08/24 0302 Culture No growth at day 2 Tissue Culture and Gram Stain [[id number]] (Abnormal) Collected: 11/06/241133 Order Status: Completed Specimen: [...] in pairs Routine Culture and Gram Stain [[id number]] (Abnormal) Collected: 11/06/241128 Order Status: Completed Specimen: Swab from Other (specify site) Updated: 11/07/24 1426 Culture Moderate Growth Enterobacter cloacae complex Comment: This isolate has been identified using the FDA Approved [employer]DI [employer] [place] System The organism value for this result has been updated. These results have been appended to the previously preliminary verified report. Gram Stain Result No polymorphonuclear leukocytes seen No organisms seen AFB Culture, Non Respiratory Source and Acid Fast Stain [[id number]] Collected: 11/06/24 1134 Order Status: Completed Specimen: Tissue from Other (specify site) Updated: 11/07/24 1404 Acid Fast Stain No acid fast bacilli seen Routine Culture and Gram Stain [[id number]] Collected: 11/06/241127 Order Status: Completed Specimen: Swab from Other (specify site) Updated: 11/07/24 0855 Culture No growth at day 1 Gram Stain Result No organisms seen No polymorphonuclear leukocytes seen Anaerobic Culture [[id number]] Collected: 11/06/241127 Order Status: Sent Specimen: Swab from Other (specify site) Updated: 11/06/24 1220 Abscess Culture and Gram Stain [[id number]] Collected: 11/06/241127 Order Status: Canceled Specimen: Swab from Other (specify site) Updated: 11/06/24 1220 Anaerobic Culture [[id number]] Collected: 11/06/241128 Order Status: Sent Specimen: Swab from Other (specify site) Updated: 11/06/24 1219 Abscess Culture and Gram Stain [[id number]] Collected: 11/06/241128 Order Status: Canceled Specimen: Swab from Other (specify site) Updated: 11/06/24 121 Anaerobic Culture [[id number]] Collected: 11/06/241133 Order Status: Sent Specimen: Tissue [...] OSH. On 11/06, pt went to the [facility] vascular surgery for left groin exploration and [...] the time spent on the encounter was [id number] providing direct patient care, counseling for the patient/caregiver, and care coordination. [1] Current Facility-Administered Medications Medication Dose Route Frequency Provider Last Rate Last Admin acetaminophen (Tylenol) tablet 1,000 mg 1,000 mg Oral q6h [facility] Anthony Reyes MD 1,000 mg at 11/08/24 0520 aspirin chewable tablet 81 mg 81 mg Oral Daily Reid Daniels MD 81 mg at 11/08/24 0837 cefepime (Maxipime) 2 g in sodium chloride 0.9% 100 mL IVPB (vial adapter required) 2 g Intravenous q8h Reid Daniels MD 36.7 mL/hr at 11/08/24 [...] Plan: OPAT at a medical/nursing facility (e.g, [facility]AC,[facility], Swing Bed, Nursing facility) OPAT [...] IV Access: pending Patient Specific Outpatient Circumstances: [address] [place] [address] Contact information Bev Borja [phone] (home) Extended Emergency Contact Information Primary Emergency Contact: Patti Hill Relation: Sister Apartment Maintenance Worker needed? No Outpatient services (including home infusion, [...] via secure chat or staff messaging in [place]. OPAT Modified program for IV antimicrobial therapy [...] Note Bev Borja 64 y.o. male CSN: [id number] Admission: 11/05/2024 9:45 PM Primary Problem: Wound infection Direct Selling Counselor reviewed chart and spoke with patient to complete this Initial Case Management Assessment. PCP: Asad Victor MD (Inactive) Dr. Palomo in [facility] Emergency Contact: Extended Emergency Contact Information Primary Emergency Contact: Patti Hill Relation: Sister Apartment Maintenance Worker needed? No Insurance: Primary Visit Coverage Payer Plan Sponsor Code Group Number Group Name [facility] MEDICARE UHC MEDICARE REPLACEMENT [id number] Primary Visit Coverage Subscriber Subscriber ID Subscriber Name Subscriber SSN Subscriber Address [id number] BEV BORJA [id number] [place] [address] Secondary Visit Coverage Payer Plan Sponsor Code Group Number Group Name AETNA [facility] [facility] MEDICAID AETNA [facility] Secondary Visit Coverage Subscriber Subscriber ID Subscriber Name Subscriber SSN Subscriber Address [id number] BEV BORJA [id number] [place] [address] Patient information: Primary Caregiver: Self Support System: Immediate family Daily Living Activities: Functional Status: Independent Living Arrangements: Alone Type of Residence: Private residence, Single Level [address] [place] [address] Current DME: Equipment Currently Used at Home: walker, rollator Income Information: Income Source: Disabled Income/Expense Information: Income meets expenses Current Resources Utilized: Food [place] Housing Circumstances-Z Codes: Housing Circumstances (select all [...] Dialysis Services: None Living Will/Advance Directive/Power of Deodorizer Operator /Guardian: Have you reviewed your Advance Directive and is it valid for this stay?: No Advance Directive: Not applicable Information Provided on Healthcare Directives: No Pre-existing DNR/DNI Order: No Patient Requests Assistance: No Additional Comments: Patient is not medically ready for discharge. Patient uses [facility] for transportation and will need assistance with discharge transport. SW will continue to follow. Mariia Macedo RESOURCE ROOM TEACHER * Progress Notes - Melecio Echevarria DO - 11/07/2024 9:24 AM EDT Images from the original note were not included. [facility] Department of Surgery Division of Vascular Surgery Surgery Progress Note 11/07/24 Bev Borja Subjective Subjective: HPI 64yoM PMHx COPD, T2DM, HLD, HTN, RLS, CAD s/p PCI (on Xarelto) s/p pacemaker c/b left SANDIP pseudoaneurysm s/p thrombin injection 09/21/24, CLI s/p left femoral endarterectomy with EIA/PARALEGAL INSTRUCTOR stenting 10/17/24, who presented to [facility] 11/05/2024 with wound infection. 11/06/24: [...] completed 10/19 Pseudoaneurysm of left femoral artery ([facility]) COPD (chronic obstructive pulmonary disease) ([facility]) Overview Signed 10/18/2021 7:30 PM by Gallo Gallardo MD Not on home inhalers A-fib ([facility]) Overview Addendum 10/19/2021 10:39 AM by Giovanna Junior APRN Hold anticoagulation Metoprolol restarted BPH (benign prostatic hyperplasia) Overview Addendum 10/19/2021 10:41 AM by Giovanna Junior APRN Flomax restarted Subarachnoid hemorrhage ([facility]) Overview Addendum 10/20/2021 8:23 AM by Giovanna Junior APRN Left frontal, right occipital NSGY consulted - Repeat CTH showing slight worsening of tSAH - no need for further imaging, will continue to follow clinically 10/20: spoke with NSGY via phone and stated to hold ASA and Xarelto for 2 weeks Closed compression fracture of L3 lumbar vertebra, initial encounter ([facility]) Overview Signed 10/18/2021 7:35 PM by [...] 09/21/24, CLI s/p left femoral endarterectomy with EIA/PARALEGAL INSTRUCTOR stenting 10/17/24, who presented to [facility] 11/05/2024 with wound infection. POD [...] Edited by: Melecio Echevarria DO at 11/07/2024 0950 Dispo: Continue Current Level of Care Melecio [...] from the original note were not included. [facility] Department of Surgery Division of Vascular Surgery [...] of breath, nausea and vomiting. Pain Control: [facility]. Currently well controlled. Objective: Vitals: Vitals: 11/06/24 [...] Diet: Regular Anticoagulation/DVT ppx: Held Pain management: [facility] Level of care: Continue Current Level of Care I have answered and addressed all issues and concerns from the patient and nursing staff. I have notified senior resident/attending manager collection with any issues or concerns. Melecio Echevarria [...] Agree with above assessment and evaluation from resident/SCALE MANAGER. * Consults - Oscar Appiah MD - [...] the findings. Cardiac Device Check - PRE-OR [facility] EP-Device [facility]: Pre-operative CIED Report Assessment and Sara-Procedural Reommendations: Name: Bev Borja Date: 10/17/2024 : 1960 Age: 64 y.o. 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 Lead integrity [...] Procedure Component Value Units Date/Time Anaerobic Culture [[id number]] Collected: 11/06/241127 Order Status: Sent Specimen: Swab from Other (specify site) Updated: 11/06/241219 Fungal Culture, Routine [[id number]] Collected: 11/06/241127 Order Status: Sent Specimen: Swab from Other (specify site) Updated: 11/06/24 122 Routine Culture and Gram Stain [[id number]] Collected: 11/06/241127 Order Status: Sent Specimen: Swab from Other (specify site) Updated: 11/06/241219 Abscess Culture and Gram Stain [[id number]] Collected: 11/06/241127 Order Status: Canceled Specimen: Swab from Other (specify site) Updated: 11/06/241219 Anaerobic Culture [[id number]] Collected: 11/06/241128 Order Status: Sent Specimen: Swab from Other (specify site) Updated: 11/06/24 121 Fungal Culture, Routine [[id number]] Collected: 11/06/241128 Order Status: Sent Specimen: Swab from Other (specify site) Updated: 11/06/241218 Routine Culture and Gram Stain [[id number]] Collected: 11/06/241128 Order Status: Sent Specimen: Swab from Other (specify site) Updated: 11/06/241218 Abscess Culture and Gram Stain [[id number]] Collected: 11/06/241128 Order Status: Canceled Specimen: Swab from Other (specify site) Updated: 11/06/241218 Anaerobic Culture [[id number]] Collected: 11/06/241133 Order Status: Sent Specimen: Tissue from Other (specify site) Updated: 11/06/241217 Tissue Culture and Gram Stain [[id number]] Collected: 11/06/241133 Order Status: Sent Specimen: Tissue from Other (specify site) Updated: 11/06/241217 AFB Culture, Non Respiratory Source and Acid Fast Stain [[id number]] Collected: 11/06/241133 Order Status: Sent Specimen: Tissue from Other (specify site) Updated: 11/06/241217 Fungal Culture, Tissue and ISIDRO [[id number]] Collected: 11/06/24 1134 Order Status: Sent Specimen: Tissue from Other (specify site) Updated: 11/06/24 1218 Blood Culture (Aerobic/Anaerobet Set) [[id number]] Collected: 11/06/24106 Order Status: Completed Specimen: Blood from AC, Left Updated: 11/06/24402 Culture Culture in lab Blood Culture (Aerobic/Anaerobet Set) [[id number]] Collected: 11/06/24106 Order Status: Completed Specimen: Blood [...] OSH. On 11/06, pt went to the [facility] vascular surgery for left groin exploration and [...] patient's care. GEN ID will follow. Dotty eSthi MD PGY1 History, assessment, and plan discussed [...] the time spent on the encounter was [id number]-[id number] providing direct patient care, counseling for the patient/caregiver, and care coordination. [1] Past Medical History: Diagnosis Date Arthritis Old myocardial infarction History of myocardial infarction [2] Past Surgical History: Procedure Laterality Date ANKLE SURGERY Right CARDIAC PACEMAKER PLACEMENT CAROTID ENDARTERECTOMY N/A 2017 Endarterectomy Carotid Artery from [employer] CORONARY ANGIOPLASTY Left Coronary Angiography With Concomitant Left Heart Catheterization from [employer] CORONARY ARTERY BYPASS GRAFT N/A 2018 3V ELBOW SURGERY Right ENDARTERECTOMY Left 10/17/2024 common/SFA/Profunda thromboendarterectomy, EIA/PARALEGAL INSTRUCTOR stent HERNIA REPAIR KNEE ARTHROSCOPY Left VASCULAR SURGERY Left 09/21/2024 PARALEGAL INSTRUCTOR pseudoaneurym injection [3] Family History Problem Relation [...] tablet 1,000 mg 1,000 mg Oral q6h [facility] Anthony Reyes MD 1,000 mg at [...] Note Bev Borja 64 y.o. male CSN: [id number] Admission: 11/05/2024 9:45 PM Primary Problem: Wound infection Patient in OR today. SW will continue to follow. Mariia aMcedo RESOURCE ROOM TEACHER * Op Note - Jerry Holcomb MD - 11/06/2024 11:23 AM EDT Operative Note Date: 11/06/24 Location: [facility] OR Name: Bev Borja, : 1960, Diagnoses: Pre-op Diagnosis Surgical wound infection Post-op Diagnosis Surgical wound infection Procedure(s): Excisional debridement left groin (skin, subcutaneous tissue. Final measurements 10 x 7 x 6.5 cm) Excisional debridement left thigh (skin, subcutaneous tissue. Final measurements 8 x 2 x 3 cm) Attending Surgeon(s): * Nathaly Nowak - Primary Burial Vault Maker(s): * Luna Beckett MD - Resident - [...] from the original note were not included. [facility] Department of Surgery Division of Vascular Surgery [...] HLD, HTN, RLS who presented to the [facility] on 11/05/2024 with problems with his [...] to [facility] with wound infection. He has [...] restarted once verified. Plan: - Admit to [facility] 2 - NPO, mIVF - Vanc/Zosyn, Blood [...] ENDARTERECTOMY N/A 2017 Endarterectomy Carotid Artery from [employer] CORONARY ANGIOPLASTY Left Coronary Angiography With Concomitant Left Heart Catheterization from [employer] CORONARY ARTERY BYPASS GRAFT N/A 2018 3V ELBOW SURGERY Right ENDARTERECTOMY Left 10/17/2024 common/SFA/Profunda thromboendarterectomy, EIA/PARALEGAL INSTRUCTOR stent HERNIA REPAIR KNEE ARTHROSCOPY Left VASCULAR SURGERY Left 09/21/2024 PARALEGAL INSTRUCTOR pseudoaneurym injection [4] Family History Problem Relation [...] Correction - Standard Dose 0-5 UnitsSubcutaneous q6h [facility] Anthony Reyes MD 2 Units at [...] baseline. Psychiatric: Mood and Affect: Mood normal. [place] Coma Scale Score: 15 ED Course & [...] to inpatient Once Acknowledged ANTHONY REYES 11/05/24 0585 Consult to Vascular Surgery - Surg Red Once Specialty: Vascular Surgery Provider: (Not yet assigned) Completed [facility] ALEXANDER ED Course as of 11/06/24612Nov 05, 2024 2311 On initial evaluation, patient is hemodynamically stable. Patient has history of traumatic left lower extremity PARALEGAL INSTRUCTOR pseudoaneurysm s/p repair on 10/17 with Vascular [...] None Disposition Admit Admitting/Attending Physician: NATHALY NOWAK [[id number]] Provider Care Team: [facility] VASCULAR SURGERY 2 [168] Are they the primary team?: Yes [1] - [1] Past Medical History: Diagnosis Date Arthritis Old myocardial infarction History of myocardial infarction [2] Past Surgical History: Procedure Laterality Date ANKLE SURGERY Right CARDIAC PACEMAKER PLACEMENT CAROTID ENDARTERECTOMY N/A 2017 Endarterectomy Carotid Artery from [employer] CORONARY ANGIOPLASTY Left Coronary Angiography With Concomitant Left Heart Catheterization from [employer] CORONARY ARTERY BYPASS GRAFT N/A 2018 3V ELBOW SURGERY Right ENDARTERECTOMY Left 10/17/2024 common/SFA/Profunda thromboendarterectomy, EIA/PARALEGAL INSTRUCTOR stent HERNIA REPAIR KNEE ARTHROSCOPY Left VASCULAR SURGERY Left 09/21/2024 PARALEGAL INSTRUCTOR pseudoaneurym injection [3] Family History Problem Relation [...] [facility] [address] [place] [address] 11/26/2024 2:30 PM EDT Hospital Encounter [facility] [address] [place] [address] 11/26/2024 3:20 PM EDT Office Visit [facility] [address] [place] [address] Elisabet Schuster, GLENDA [address] [place] [address] 11/29/2024 2:30 PM EDT Office Visit [facility] [address] [place] [address] Oscar Appiah MD [address] [place] [address] Pending Results Name Type Priority [...] until 05/18/2026 Discharge Ambulatory referral to NON [facility] Outpatient Referral Routine Pseudoaneurysm of [...] UNSOLICITED RESULTS Routine 11/13/2024 5:16 PM EDT ME NEGATIVE PRESSURE WOUND THERAPY DME </= 50 [...] UNSOLICITED RESULTS Routine 11/11/2024 5:20 PM EDT ME NEGATIVE PRESSURE WOUND THERAPY DME >50 SQ [...] POCT glucose meter (11/14/2024 11:56 AM EDT) [facility] POCT Glucose 225(H) 74 - 99 [...] Comment 11/14/2024 11:57 AM EDT HEALTHCARE LAB Conveyor Technician ID Estefani Sheth 11/14/2024 11:57 AM EDT HEALTHCARE LAB Device ID [id number] 11/14/2024 11:57 AM EDT HEALTHCARE LAB Specimen Type POC Capillary 11/14/2024 11:57 AM EDT HEALTHCARE LAB Blood Capillary blood specimen / Unknown 11/14/2024 11:56 AM EDT 11/14/2024 11:57 AM EDT Nathaly Nowak MD LAB POINT OF CARE TE ST DOCKED DEVICE UNSOLICITED RESULTS Final Result Performing Organization Address City/State/[facility] Co de Phone Number HEALTHCARE LAB [address] [place] [address] * (ABNORMAL) POCT glucose meter (11/14/2024 8:05 AM EDT) [facility] POCT Glucose 150(H) 74 - 99 [...] 11/14/2024 8:06 AM EDT [facility] Conveyor Technician ID Estefani Sheth 11/14/2024 8:06 AM EDT HEALTHCARE LAB Device ID [id number] 11/14/2024 8:06 AM EDT HEALTHCARE LAB Specimen Type POC Capillary 11/14/2024 8:06 AM EDT HEALTHCARE LAB Blood Capillary blood specimen / Unknown 11/14/2024 8:05 AM EDT 11/14/2024 8:06 AM EDT Nathaly Nowak MD LAB POINT OF CARE TE ST DOCKED DEVICE UNSOLICITED RESULTS Final Result Performing Organization Address City/[facility] de Phone Number [facility] [address] [place] [address] * (ABNORMAL) POCT glucose meter (11/14/2024 3:53 [...] for testing. Comment 11/14/2024 3:55 AM EDT [facility] Conveyor Technician ID Nelda Gerber 11/15/19 3:55 AM EDT HEALTHCARE LAB Device ID [id number] 11/14/2024 3:55 AM EDT [facility] Specimen Type POC Capillary 11/14/2024 3:55 AM EDT [facility] Blood Capillary blood specimen / Unknown 11/14/2024 3:53 AM EDT 11/14/2024 3:55 AM EDT Nathaly Nowak MD LAB POINT OF CARE TE ST DOCKED DEVICE UNSOLICITED RESULTS Final Result Performing Organization Address City/[facility] Co de Phone Number [facility] [address] [place] [address] * (ABNORMAL) POCT glucose meter (11/13/2024 8:55 [...] Comment 11/13/2024 9:01 PM EDT HEALTHCARE LAB Conveyor Technician ID Nelda Gerber 11/14/19 9:01 PM EDT HEALTHCARE LAB Device ID [id number] 11/13/2024 9:01 PM EDT HEALTHCARE LAB Specimen Type POC Capillary 11/13/2024 9:01 PM EDT [facility] Blood Capillary blood specimen / Unknown 11/13/2024 8:55 PM EDT 11/13/2024 9:01 PM EDT Nathaly Nowak MD LAB POINT OF CARE TE ST DOCKED DEVICE UNSOLICITED RESULTS Final Result Performing Organization Address City/State/[facility] Co de Phone Number [facility]ALTH[facility]ARE [facility] [address] [place] [address] * (ABNORMAL) POCT glucose meter (11/13/2024 5:16 PM EDT) [facility] POCT Glucose 149(H) 74 - 99 [...] Comment 11/13/2024 5:17 PM EDT [facility] Conveyor Technician ID Estefani Sheth 11/13/2024 5:17 PM EDT [facility] Device ID [id number] 11/13/2024 5:17 PM EDT [facility] Specimen Type POC Capillary 11/13/2024 5:17 PM EDT [facility] Blood Capillary blood specimen / Unknown 11/13/2024 5:16 PM EDT 11/13/2024 5:17 PM EDT Nathaly Nowak MD LAB POINT OF CARE TE ST DOCKED DEVICE UNSOLICITED RESULTS Final Result [facility] [address] [place] [id number] * ME NEGATIVE PRESSURE WOUND THERAPY DME </= 50 [...] Comment 11/13/2024 12:00 PM EDT [facility] Conveyor Technician ID Estefani Sheth 11/13/2024 12:00 PM EDT [facility] Device ID [id number] 11/13/2024 12:00 PM EDT [facility] Specimen Type POC Capillary 11/13/2024 12:00 PM EDT [facility] Blood Capillary blood specimen / Unknown 11/13/2024 11:58 AM EDT 11/13/2024 12:00 PM EDT Nathaly Nowak MD LAB POINT OF CARE TE ST DOCKED DEVICE UNSOLICITED RESULTS Final Result Performing Organization Address [facility] Co de Phone Number [facility]ARE [facility] [address] [place] [address] * (ABNORMAL) POCT glucose meter (11/13/2024 8:23 AM EDT) POCT Glucose 195(H) 74 - 99 mg/dL 11/13/2024 8:24 AM EDT [facility] Comment:Accuracy of a glucos e result [...] for testing. Comment 11/13/2024 8:24 AM EDT [facility] Conveyor Technician ID Estefani Sheth 11/13/2024 8:24 AM EDT [facility] Device ID [id number] 11/13/2024 8:24 AM EDT [facility] Specimen Type POC Capillary 11/13/2024 8:24 AM EDT [facility] Blood Capillary blood specimen / Unknown 11/13/2024 8:23 AM EDT 11/13/2024 8:24 AM EDT Result [facility] Nathaly Nowak MD LAB POINT OF CARE TE ST DOCKED DEVICE UNSOLICITED RESULTS Final Result Performing Organization Address City/[facility] Co de Phone Number [facility] [address] [place] [address] * (ABNORMAL) Phosphorus, Plasma (11/13/2024 6:37 AM EDT) Phosphorus, Plasma 1.7(L) 2.5 - 4.5 mg/dL 11/13/2024 7:16 AM EDT [facility] Blood Venous blood specimen / Unknown Venipuncture / Unknown 11/13/2024 6:37 AM EDT 11/13/2024 6:44 AM EDT Result [facility] Nathaly Nowak MD LAB BLOOD ORDERABLES Final Resu lt [facility] [address] [place] [address] * Magnesium, Plasma (11/13/2024 6:37 AM EDT) Pathologist [facility] Magnesium, Plasma 2.0 1.9 - 2.4 mg/dL 11/13/2024 7:16 AM EDT [facility] Blood Venous blood specimen / Unknown Venipuncture / Unknown 11/13/2024 6:37 AM EDT 11/13/2024 6:44 AM EDT us Nathaly Nowak MD LAB BLOOD ORDERABLES Final Resu lt Performing Organization Address City/[facility]/ZIP Co de Phone Number [facility] [address] [place] [address] * (ABNORMAL) CBC W/O Differential (11/13/2024 6:37 AM EDT) Pathologist [facility] WBC Count 11.72(H) 3.70 - 10.30 10*3/uL LAB HEMATOLOGY METHOD 11/13/2024 6:51 AM EDT [facility] RBC Count 2.88(L) 4.60 - 6.10 10*6/uL LAB HEMATOLOGY METHOD 11/13/2024 6:51 AM EDT [facility] HGB 8.5(L) 13.7 - 17.5 g/dL LAB HEMATOLOGY METHOD 11/13/2024 6:51 AM EDT [facility] HCT 26.4(L) 40.0 - 51.0 % LAB HEMATOLOGY METHOD 11/13/2024 6:51 AM EDT [facility] Platelet Count 398(H) 155 - 369 10*3/uL LAB HEMATOLOGY METHOD 11/13/2024 6:51 AM EDT [facility] MCV 92 79 - 98 fL LAB HEMATOLOGY METHOD 11/13/2024 6:51 AM EDT [facility] MCH 29.5 26.0 - 32.0 pg LAB HEMATOLOGY METHOD 11/13/2024 6:51 AM EDT [facility] MCHC 32.2 30.7 - 35.5 g/dL LAB HEMATOLOGY METHOD 11/13/2024 6:51 AM EDT [facility] RDW 13.6 11.5 - 14.5 % LAB HEMATOLOGY METHOD 11/13/2024 6:51 AM EDT [facility] MPV 8.9 8.8 - 12.5 fL LAB HEMATOLOGY METHOD 11/13/2024 6:51 AM EDT [facility] nRBC 0.0 <=0.0 per 100 WBCs LAB HEMATOLOGY METHOD 11/13/2024 6:51 AM EDT [facility] Blood Venous blood specimen / Unknown Venipuncture / Unknown 11/13/2024 6:37 AM EDT 11/13/2024 6:44 AM EDT us Nathaly Nowak MD LAB BLOOD ORDERABLES Final Resu lt [facility] [address] [place] [address] * (ABNORMAL) Basic Metabolic Panel, Plasma (11/13/2024 6:37 AM EDT) Glucose, Plasma 200(H) 74 - 99 mg/dL 11/13/2024 7:16 AM EDT [facility] BUN, Plasma 10 8 - 23 mg/dL 11/13/2024 7:16 AM EDT [facility] Creatinine, Plasma 0.68(L) 0.70 - 1.20 mg/dL 11/13/2024 7:16 AM EDT [facility] BUN/Creatinine Ratio 15 11/13/2024 7:16 AM EDT [facility] Sodium, Plasma 135(L) 136 - 145 mmol/L 11/13/2024 7:16 AM EDT [facility] Potassium, Plasma 3.9 3.6 - 4.9 mmol/L 11/13/2024 7:16 AM EDT [facility] Chloride, Plasma 107 97 - 107 mmol/L 11/13/2024 7:16 AM EDT [facility] CO2, Plasma 21(L) 22 - 29 mmol/L 11/13/2024 7:16 AM EDT [facility] Anion Gap 7 6 - 16 mmol/L 11/13/2024 7:16 AM EDT [facility] Total Calcium, Plasma 8.1(L) 8.9 - 10.2 mg/dL 11/13/2024 7:16 AM EDT [facility] eGFRcr 103.2 mL/min/1.7 3m*2 11/13/2024 7:16 AM EDT [facility] Comment:Reported eGFRcr in m L/min/1.73m2 is based the CKD-EPI 2020 equation that does not use a race coefficient. Blood Venous blood specimen / Unknown Venipuncture / Unknown 11/13/2024 6:37 AM EDT 11/13/2024 6:44 AM EDT us Nathaly Nowak MD LAB BLOOD ORDERABLES Final Resu lt Performing Organization Address City/[facility]/ZIP Co de Phone Number [facility] [address] [place] [address] * (ABNORMAL) POCT glucose meter (11/12/2024 8:27 PM EDT) [facility] POCT Glucose 175(H) 74 - 99 [...] Comment 11/12/2024 8:29 PM EDT [facility] Conveyor Technician ID Nelda Gerber 11/13/19 8:29 PM EDT [facility] Device ID [id number] 11/12/2024 8:29 PM EDT [facility] Specimen Type POC Capillary 11/12/2024 8:29 PM EDT [facility] Blood Capillary blood specimen / Unknown 11/12/2024 8:27 PM EDT 11/12/2024 8:29 PM EDT us Nathaly Nowak MD LAB POINT OF CARE TE ST DOCKED DEVICE UNSOLICITED RESULTS Final Result [facility] [address] [place] [address] * (ABNORMAL) POCT glucose meter (11/12/2024 5:08 PM EDT) [facility] POCT Glucose 157(H) 74 - 99 [...] 11/12/2024 5:10 PM EDT [facility] Conveyor Technician ID Wade Feliciano 5:10 PM EDT [facility] Device ID [id number] 11/12/2024 5:10 PM EDT [facility] Specimen Type POC Capillary 11/12/2024 5:10 PM EDT [facility] Blood Capillary blood specimen / Unknown 11/12/2024 5:08 PM EDT 11/12/2024 5:10 PM EDT Nathaly Nowak MD LAB POINT OF CARE TE ST DOCKED DEVICE UNSOLICITED RESULTS Final Result [facility] [address] [place] [address] * (ABNORMAL) POCT glucose meter (11/12/2024 12:36 PM EDT) [facility] POCT Glucose 224(H) 74 - 99 [...] 11/12/2024 12:38 PM EDT [facility] Conveyor Technician ID Wade Feliciano 12:38 PM EDT [facility] Device ID [id number] 11/12/2024 12:38 PM EDT [facility] Specimen Type POC Capillary 11/12/2024 12:38 PM EDT [facility] Blood Capillary blood specimen / Unknown 11/12/2024 12:36 PM EDT 11/12/2024 12:38 PM EDT Nathaly Nowak MD LAB POINT OF CARE TE ST DOCKED DEVICE UNSOLICITED RESULTS Final Result Performing Organization Address City/[facility]/ZIP Co de Phone Number [facility] [address] [place] [address] * Clostridiodes (Clostridium) difficile PCR (11/12/2024 9:50 AM EDT) C difficile PCR toxin B gene DNA Result Not Detected Not Detected 11/12/2024 11:54 AM EDT [facility] Stool Rectum structure / Unknown Non-blood Collection / Unknown 11/12/2024 9:50 AM EDT 11/12/2024 10:04 AM EDT Narrative [facility] - 11/12/2024 11:54 AM EDT [...] ATIYA FRITZ Final Result Performing Organization Address City/[facility]/ZIP Co de Phone Number [facility] [address] [place] [address] * Comprehensive GI Panel by PCR (11/12/2024 9:50 AM EDT) Campylobacter PCR Result Not Detected Not Detected 11/12/2024 2:47 PM EDT [facility] Plesiomonas shigelloides PCR Result Not Detected Not Detected 11/12/2024 2:47 PM EDT [facility] Salmonella PCR Result Not Detected Not Detected 11/12/2024 2:47 PM EDT [facility] Vibrio species PCR Result Not Detected Not Detected 11/12/2024 2:47 PM EDT [facility] Vibrio cholerae PCR Result Not Detected Not Detected 11/12/2024 2:47 PM EDT [facility] Yersinia enterocolitica PCR Result Not Detected Not Detected 11/12/2024 2:47 PM EDT [facility] Enteroaggregative E. coli (EAEC) PCR Result Not Detected Not Detected 11/12/2024 2:47 PM EDT [facility] Enteropathogenic E. coli (EPEC) PCR Result Not Detected Not Detected 11/12/2024 2:47 PM EDT [facility] Enterotoxigenic E. coli (ETEC) lt/st PCR Result Not Detected Not Detected 11/12/2024 2:47 PM EDT [facility] Shiga-like Toxin-Producing E.coli (STEC) stx1/stx2 PCR Resu Not Detected Not Detected 11/12/2024 2:47 PM EDT [facility] E coli 0157 PCR Result Not Detected Not Detected 11/12/2024 2:47 PM EDT [facility] Shigella/Enteroinvas tam E. coli (EIEC) PCR Result Not Detected Not Detected 11/12/2024 2:47 PM EDT [facility] Cryptosporidium PCR Result Not Detected Not Detected 11/12/2024 2:47 PM EDT [facility] Cyclospora cayetanensis PCR Result Not Detected Not Detected 11/12/2024 2:47 PM EDT [facility] Entamoeba histolytica PCR Result Not Detected Not Detected 11/12/2024 2:47 PM EDT [facility] Giardia duodenalis (aka Giardia lamblia) PCR Result Not Detected Not Detected 11/12/2024 2:47 PM EDT [facility] Adenovirus F 40/41 PCR Result Not Detected Not Detected 11/12/2024 2:47 PM EDT [facility] Astrovirus PCR Result Not Detected Not Detected 11/12/2024 2:47 PM EDT [facility] Norovirus GI/GII PCR Result Not Detected Not Detected 11/12/2024 2:47 PM EDT [facility] Rotavirus A PCR Result Not Detected Not Detected 11/12/2024 2:47 PM EDT [facility] Sapovirus PCR Result Not Detected Not Detected 11/12/2024 2:47 PM EDT [facility] Stool Rectum structure / Unknown Non-blood Collection / Unknown 11/12/2024 9:50 AM EDT 11/12/2024 10:04 AM EDT Narrative [facility] - 11/12/2024 2:47 PM EDT [...] clinically indicated. Nathaly Nowak MD LAB MICROBIOLOGY [facility] Final Result [facility] [address] [place] [address] * C-reactive protein (11/12/2024 9:48 AM EDT) CRP, Plasma <3.0 <=8.0 mg/L 11/12/2024 10:28 AM EDT [facility] Blood Venous blood specimen / Unknown Venipuncture / Unknown 11/12/2024 9:48 AM EDT 11/12/2024 9:59 AM EDT Narrative [facility] - 11/12/2024 10:28 AM EDT This CRP test is appropriate for assessment of infection, systemic inflammation and/or tissue injury. To assess cardiovascular disease risk order high sensitivity CRP (CRPH). us Nathaly Nowak MD LAB BLOOD ORDERABLES Final Resu lt Performing Organization Address City/[facility]/ZIP Co de Phone Number [facility] [address] [place] [address] * (ABNORMAL) POCT glucose meter (11/12/2024 8:20 AM EDT) [facility] POCT Glucose 138(H) 74 - 99 [...] Comment 11/12/2024 8:21 AM EDT [facility] Conveyor Technician ID Wade Feliciano 8:21 AM EDT [facility] Device ID [id number] 11/12/2024 8:21 AM EDT [facility] Specimen Type POC Capillary 11/12/2024 8:21 AM EDT [facility] Blood Capillary blood specimen / Unknown 11/12/2024 8:20 AM EDT 11/12/2024 8:21 AM EDT Nathaly Nowak MD LAB POINT OF CARE TE ST DOCKED DEVICE UNSOLICITED RESULTS Final Result Performing Organization Address [facility] Co de Phone Number [facility] [address] [place] [address] * (ABNORMAL) POCT glucose meter (11/11/2024 8:18 PM EDT) [facility] POCT Glucose 248(H) 74 - 99 [...] Comment 11/11/2024 8:20 PM EDT [facility] Conveyor Technician ID Nelda Gerber 11/12/19 8:20 PM EDT [facility] Device ID [id number] 11/11/2024 8:20 PM EDT [facility] Specimen Type POC Capillary 11/11/2024 8:20 PM EDT [facility] Blood Capillary blood specimen / Unknown 11/11/2024 8:18 PM EDT 11/11/2024 8:20 PM EDT Nathaly Nowak MD LAB POINT OF CARE TE ST DOCKED DEVICE UNSOLICITED RESULTS Final Result Performing Organization Address City/[facility]/ZIP Co de Phone Number [facility] [address] [place] [address] * (ABNORMAL) POCT glucose meter (11/11/2024 5:59 [...] 11/11/2024 6:01 PM EDT [facility] Conveyor Technician ID Wade Feliciano 6:01 PM EDT [facility] Device ID [id number] 11/11/2024 6:01 PM EDT [facility] Specimen Type POC Capillary 11/11/2024 6:01 PM EDT [facility] Blood Capillary blood specimen / Unknown 11/11/2024 5:59 PM EDT 11/11/2024 6:01 PM EDT Nathaly Nowak MD LAB POINT OF CARE TE ST DOCKED DEVICE UNSOLICITED RESULTS Final Result Performing Organization Address City/[facility]/ZIP Co de Phone Number [facility] [address] [place] [address] * POCT glucose meter (11/11/2024 5:20 PM [...] Comment 11/11/2024 5:22 PM EDT [facility] Conveyor Technician ID Wade Feliciano 5:22 PM EDT [facility] Device ID [id number] 11/11/2024 5:22 PM EDT [facility] Specimen Type POC Capillary 11/11/2024 5:22 PM EDT [facility] Blood Capillary blood specimen / Unknown 11/11/2024 5:20 PM EDT 11/11/2024 5:22 PM EDT Nathaly Nowak MD LAB POINT OF CARE TE ST DOCKED DEVICE UNSOLICITED RESULTS Final Result Performing Organization Address City/State/[facility] Co de Phone Number [facility] [address] [place] [address] * ME NEGATIVE PRESSURE WOUND THERAPY DME >50 SQ [...] glucose meter (11/11/2024 12:08 PM EDT) Pathologist [facility] POCT Glucose 226(H) 74 - 99 mg/dL [...] Comment 11/11/2024 12:10 PM EDT [facility] Conveyor Technician ID Wade Feliciano 12:10 PM EDT [facility] Device ID [id number] 11/11/2024 12:10 PM EDT [facility] Specimen Type POC Capillary 11/11/2024 12:10 PM EDT [facility] Blood Capillary blood specimen / Unknown 11/11/2024 12:08 PM EDT 11/11/2024 12:10 PM EDT us Nathaly Nowak MD LAB POINT OF CARE TE ST DOCKED DEVICE UNSOLICITED RESULTS Final Result Performing Organization Address City/State/[facility] Co de Phone Number [facility] [address] [place] [address] * (ABNORMAL) POCT glucose meter (11/11/2024 9:08 AM EDT) Pathologist [facility] POCT Glucose 162(H) 74 - 99 mg/dL [...] 11/11/2024 9:09 AM EDT [facility] Conveyor Technician ID Wade Felicaino 9:09 AM EDT [facility] Device ID [id number] 11/11/2024 9:09 AM EDT [facility] Specimen Type POC Capillary 11/11/2024 9:09 AM EDT [facility] Blood Capillary blood specimen / Unknown 11/11/2024 9:08 AM EDT 11/11/2024 9:09 AM EDT Nathaly Nowak MD LAB POINT OF CARE TE ST DOCKED DEVICE UNSOLICITED RESULTS Final Result Performing Organization Address City/[facility]/ZIP Co de Phone Number [facility] [address] [place] [address] * POCT glucose meter (11/11/2024 8:27 AM EDT) POCT Glucose 87 74 - 99 mg/dL 11/11/2024 8:28 AM EDT [facility] Comment:Accuracy of a glucos e result [...] for testing. Comment 11/11/2024 8:28 AM EDT [facility] Conveyor Technician ID Wade Feliciano 8:28 AM EDT [facility] Device ID [id number] 11/11/2024 8:28 AM EDT [facility] Specimen Type POC Capillary 11/11/2024 8:28 AM EDT [facility] Blood Capillary blood specimen / Unknown 11/11/2024 8:27 AM EDT 11/11/2024 8:28 AM EDT Nathaly Nowak MD LAB POINT OF CARE TE ST DOCKED DEVICE UNSOLICITED RESULTS Final Result Performing Organization Address City/[facility]/ZIP Co de Phone Number [facility] [address] [place] [address] * (ABNORMAL) Basic Metabolic Panel, Plasma (11/11/2024 1:12 AM EDT) Glucose, Plasma 122(H) 74 - 99 mg/dL 11/11/2024 1:12 AM EDT [facility] BUN, Plasma 10 8 - 23 mg/dL 11/11/2024 1:12 AM EDT [facility] Creatinine, Plasma 0.82 0.70 - 1.20 mg/dL 11/11/2024 1:12 AM EDT [facility] BUN/Creatinine Ratio 12 11/11/2024 1:12 AM EDT [facility] Sodium, Plasma 137 136 - 145 mmol/L 11/11/2024 1:12 AM EDT [facility] Potassium, Plasma 3.9 3.6 - 4.9 mmol/L 11/11/2024 1:12 AM EDT [facility] Chloride, Plasma 110(H) 97 - 107 mmol/L 11/11/2024 1:12 AM EDT [facility] CO2, Plasma 20(L) 22 - 29 mmol/L 11/11/2024 1:12 AM EDT [facility] Anion Gap 7 6 - 16 mmol/L 11/11/2024 1:12 AM EDT [facility] Total Calcium, Plasma 7.6(L) 8.9 - 10.2 mg/dL 11/11/2024 1:12 AM EDT [facility] eGFRcr 97.5 mL/min/1.7 3m*2 11/11/2024 1:12 AM EDT [facility] Comment:Reported eGFRcr in m L/min/1.73m2 is based the CKD-EPI 2020 equation that does not use a race coefficient. Blood Venous blood specimen / Unknown 11/11/2024 12:42 AM EDT us Nathaly Nowak MD LAB BLOOD ORDERABLES Final Resu lt [facility] [address] [place] [address] * (ABNORMAL) CBC W/O Differential (11/11/2024 12:56 AM EDT) WBC Count 11.83(H) 3.70 - 10.30 10*3/uL LAB HEMATOLOGY METHOD 11/11/2024 12:56 AM EDT [facility] RBC Count 2.97(L) 4.60 - 6.10 10*6/uL LAB HEMATOLOGY METHOD 11/11/2024 12:56 AM EDT [facility] HGB 8.9(L) 13.7 - 17.5 g/dL LAB HEMATOLOGY METHOD 11/11/2024 12:56 AM EDT [facility] HCT 27.2(L) 40.0 - 51.0 % LAB HEMATOLOGY METHOD 11/11/2024 12:56 AM EDT [facility] Platelet Count 444(H) 155 - 369 10*3/uL LAB HEMATOLOGY METHOD 11/11/2024 12:56 AM EDT [facility] MCV 92 79 - 98 fL LAB HEMATOLOGY METHOD 11/11/2024 12:56 AM EDT [facility] MCH 30.0 26.0 - 32.0 pg LAB HEMATOLOGY METHOD 11/11/2024 12:56 AM EDT [facility] MCHC 32.7 30.7 - 35.5 g/dL LAB HEMATOLOGY METHOD 11/11/2024 12:56 AM EDT [facility] RDW 13.3 11.5 - 14.5 % LAB HEMATOLOGY METHOD 11/11/2024 12:56 AM EDT [facility] MPV 9.0 8.8 - 12.5 fL LAB HEMATOLOGY METHOD 11/11/2024 12:56 AM EDT [facility] nRBC 0.0 <=0.0 per 100 WBCs LAB HEMATOLOGY METHOD 11/11/2024 12:56 AM EDT [facility] Blood Venous blood specimen / Unknown 11/11/2024 12:42 AM EDT us Nathaly Nowak MD LAB BLOOD ORDERABLES Final Resu lt [facility] [address] [place] [address] * (ABNORMAL) POCT glucose meter (11/10/2024 8:25 PM EDT) Pathologist [facility] POCT Glucose 144(H) 74 - 99 mg/dL 11/10/2024 8:28 PM EDT [facility] Comment:Accuracy of a glucos [...] Comment 11/10/2024 8:28 PM EDT [facility] Conveyor Technician ID Nelda Gerber 11/11/19 8:28 PM EDT [facility] Device ID [id number] 11/10/2024 8:28 PM EDT [facility] Specimen Type POC Capillary 11/10/2024 8:28 PM EDT [facility] Blood Capillary blood specimen / Unknown 11/10/2024 8:25 PM EDT 11/10/2024 8:28 PM EDT Nathaly Nowak MD LAB POINT OF CARE TE ST DOCKED DEVICE UNSOLICITED RESULTS Final Result Performing Organization Address City/[facility] Co de Phone Number [facility] [address] [place] [address] * (ABNORMAL) POCT glucose meter (11/10/2024 4:45 PM EDT) [facility] POCT Glucose 155(H) 74 - 99 [...] Comment 11/10/2024 4:47 PM EDT [facility] Conveyor Technician ID Esperanza Parks 11/10/2024 4:47 PM EDT [facility] LAB Device ID [id number] 11/10/2024 4:47 PM EDT [facility] Specimen Type POC Capillary 11/10/2024 4:47 PM EDT [facility] Blood Capillary blood specimen / Unknown 11/10/2024 4:45 PM EDT 11/10/2024 4:47 PM EDT us Nathaly Nowak MD LAB POINT OF CARE TE ST DOCKED DEVICE UNSOLICITED RESULTS Final Result [facility] [address] [place] [address] * (ABNORMAL) POCT glucose meter (11/10/2024 12:13 PM EDT) Pathologist [facility] POCT Glucose 131(H) 74 - 99 mg/dL [...] Comment 11/10/2024 12:14 PM EDT [facility] Conveyor Technician ID Esperanza Parks 11/10/2024 12:14 PM EDT [facility] Device ID [id number] 11/10/2024 12:14 PM EDT [facility] Specimen Type POC Capillary 11/10/2024 12:14 PM EDT [facility] Blood Capillary blood specimen / Unknown 11/10/2024 12:13 PM EDT 11/10/2024 12:14 PM EDT Nathaly Nowak MD LAB POINT OF CARE TE ST DOCKED DEVICE UNSOLICITED RESULTS Final Result Performing Organization Address City/[facility]/ZIP Co de Phone Number [facility] [address] [place] [address] * Vancomycin, Peak, Plasma Please draw ~2 hours after 0800 dose of vancomycin finishes infusing. Consider obtaining level via peripheral stick. If peripheral stick is not feasible, please ensure that line is flushed well prior to drawing level. Than... (11/10/2024 10:56 AM EDT) Pathologist [facility] Vancomycin, Peak, Plasma 23.8 20.0 - 40.0 ug/mL 11/10/2024 11:25 AM EDT [facility] Blood Venous blood specimen / Unknown Venipuncture / Unknown 11/10/2024 10:56 AM EDT 11/10/2024 11:00 AM EDT Narrative [facility] - 11/10/2024 11:25 AM EDT Therapeutic Peak level: 20-40ug/mL Supra-therapeutic Peak level: >40 ug/mL us Abigail Seay MD LAB BLOOD ORDERABLES Final Res ult Performing Organization Address [facility] Co de Phone Number [facility] [address] [place] [address] * (ABNORMAL) POCT glucose meter (11/10/2024 8:03 [...] Comment 11/10/2024 8:04 AM EDT [facility] Conveyor Technician ID Esperanza Parks 11/10/2024 8:04 AM EDT HEALTHCARE LAB Device ID [id number] 11/10/2024 8:04 AM EDT HEALTHCARE LAB Specimen Type POC Capillary 11/10/2024 8:04 AM EDT HEALTHCARE LAB Blood Capillary blood specimen / Unknown 11/10/2024 8:03 AM EDT 11/10/2024 8:04 AM EDT us Nathaly Nowak MD LAB POINT OF CARE TE ST DOCKED DEVICE UNSOLICITED RESULTS Final Result Performing Organization Address [facility] Co de Phone Number [facility] [address] [place] [address] * Vancomycin, Trough, Plasma Please draw ~30 minutes prior to dose due at 0800 on 11/10. Please do NOThold dose awaiting level to return. Consider obtaining level via peripheral stick. If peripheral stick is not feasible, please ensure that line is... (11/10/2024 7:27 AM EDT) Vancomycin, Trough, Plasma 16.2 10.0 - 20.0 ug/mL 11/10/2024 8:24 AM EDT [facility] Blood Venous blood specimen / Unknown Venipuncture / Unknown 11/10/2024 7:27 AM EDT 11/10/2024 7:51 AM EDT [facility] - 11/10/2024 8:24 AM EDT Therapeutic Trough level: 10-20ug/mL Supra-therapeutic Trough level: >20 ug/mL us Abigail Seay MD LAB BLOOD ORDERABLES Final Res ult [facility] [address] [place] [address] * (ABNORMAL) CBC and Differential (11/10/2024 12:31 AM EDT) WBC Count 10.80(H) 3.70 - 10.30 10*3/uL LAB HEMATOLOGY METHOD 11/10/2024 12:53 AM EDT [facility] RBC Count 3.06(L) 4.60 - 6.10 10*6/uL LAB HEMATOLOGY METHOD 11/10/2024 12:53 AM EDT [facility] HGB 9.1(L) 13.7 - 17.5 g/dL LAB HEMATOLOGY METHOD 11/10/2024 12:53 AM EDT [facility] HCT 28.0(L) 40.0 - 51.0 % LAB HEMATOLOGY METHOD 11/10/2024 12:53 AM EDT [facility] Platelet Count 501(H) 155 - 369 10*3/uL LAB HEMATOLOGY METHOD 11/10/2024 12:53 AM EDT [facility] MCV 92 79 - 98 fL LAB HEMATOLOGY METHOD 11/10/2024 12:53 AM EDT [facility] MCH 29.7 26.0 - 32.0 pg LAB HEMATOLOGY METHOD 11/10/2024 12:53 AM EDT [facility] MCHC 32.5 30.7 - 35.5 g/dL LAB HEMATOLOGY METHOD 11/10/2024 12:53 AM EDT [facility] RDW 13.2 11.5 - 14.5 % LAB HEMATOLOGY METHOD 11/10/2024 12:53 AM EDT [facility] MPV 8.8 8.8 - 12.5 fL LAB HEMATOLOGY METHOD 11/10/2024 12:53 AM EDT [facility] nRBC 0.0 <=0.0 per 100 WBCs LAB HEMATOLOGY METHOD 11/10/2024 12:53 AM EDT [facility] Differential Type Automated LAB HEMATOLOGY METHOD 11/10/2024 12:53 AM EDT [facility] Neutrophils % 77 % LAB HEMATOLOGY METHOD 11/10/2024 12:53 AM EDT [facility] Lymphocytes % 13 % LAB HEMATOLOGY METHOD 11/10/2024 12:53 AM EDT [facility] Monocytes % 8 % LAB HEMATOLOGY METHOD 11/10/2024 12:53 AM EDT [facility] Eosinophils % 1 % LAB HEMATOLOGY METHOD 11/10/2024 12:53 AM EDT [facility] Basophils % 0 % LAB HEMATOLOGY METHOD 11/10/2024 12:53 AM EDT [facility] Immature Granulocytes % 1 % LAB HEMATOLOGY METHOD 11/10/2024 12:53 AM EDT [facility] Neutrophils Absolute 8.32(H) 1.60 - 6.10 10*3/uL LAB HEMATOLOGY METHOD 11/10/2024 12:53 AM EDT [facility] Lymphocytes Absolute 1.40 1.20 - 3.90 10*3/uL LAB HEMATOLOGY METHOD 11/10/2024 12:53 AM EDT [facility] Monocytes Absolute 0.89 0.30 - 0.90 10*3/uL LAB HEMATOLOGY METHOD 11/10/2024 12:53 AM EDT [facility] Eosinophils Absolute 0.09 0.00 - 0.50 10*3/uL LAB HEMATOLOGY METHOD 11/10/2024 12:53 AM EDT [facility] Basophils Absolute 0.04 0.00 - 0.10 10*3/uL LAB HEMATOLOGY METHOD 11/10/2024 12:53 AM EDT [facility] Immature Granulocytes Absolute 0.06 0.00 - 0.06 10*3/uL LAB HEMATOLOGY METHOD 11/10/2024 12:53 AM EDT [facility] Blood Venous blood specimen / Unknown Venipuncture / Unknown 11/10/2024 12:31 AM EDT 11/10/2024 12:37 AM EDT Narrative [facility] - 11/10/2024 12:53 AM EDT Therapeutic decision making should be based on absolute values, rather than percentages. us Nathaly Nowak MD LAB BLOOD ORDERABLES Final Resu lt [facility] [address] [place] [address] * (ABNORMAL) Comprehensive Metabolic Panel, Plasma (11/10/2024 12:31 AM EDT) Glucose, Plasma 185(H) 74 - 99 mg/dL 11/10/2024 1:05 AM EDT [facility] BUN, Plasma 9 8 - 23 mg/dL 11/10/2024 1:05 AM EDT [facility] Creatinine, Plasma 0.72 0.70 - 1.20 mg/dL 11/10/2024 1:05 AM EDT [facility] BUN/Creatinine Ratio 13 11/10/2024 1:05 AM EDT [facility] Sodium, Plasma 135(L) 136 - 145 mmol/L 11/10/2024 1:05 AM EDT [facility] Potassium, Plasma 4.0 3.6 - 4.9 mmol/L 11/10/2024 1:05 AM EDT [facility] Chloride, Plasma 106 97 - 107 mmol/L 11/10/2024 1:05 AM EDT [facility] CO2, Plasma 19(L) 22 - 29 mmol/L 11/10/2024 1:05 AM EDT [facility] Anion Gap 10 6 - 16 mmol/L 11/10/2024 1:05 AM EDT [facility] Total Calcium, Plasma 7.8(L) 8.9 - 10.2 mg/dL 11/10/2024 1:05 AM EDT [facility] Total Protein 5.6(L) 6.3 - 7.9 g/dL 11/10/2024 1:05 AM EDT [facility] Albumin, Plasma 3.1(L) 3.5 - 5.2 g/dL 11/10/2024 1:05 AM EDT [facility] AST, Plasma 33 10 - 50 U/L 11/10/2024 1:05 AM EDT [facility] ALT, Plasma 25 10 - 50 U/L 11/10/2024 1:05 AM EDT [facility] Alkaline Phosphatase, Plasma 108 40 - 115 U/L 11/10/2024 1:05 AM EDT [facility] Total Bilirubin, Plasma <0.2(L) 0.2 - 1.1 mg/dL 11/10/2024 1:05 AM EDT [facility] eGFRcr 101.4 mL/min/1.7 3m*2 11/10/2024 1:05 AM EDT [facility] Comment:Reported eGFRcr in m L/min/1.73m2 is based the CKD-EPI 2020 equation that does not use a race coefficient. Blood Venous blood specimen / Unknown Venipuncture / Unknown 11/10/2024 12:31 AM EDT 11/10/2024 12:37 AM EDT us Nathaly Nowak MD LAB BLOOD ORDERABLES Final Resu lt [facility] [address] [place] [address] * (ABNORMAL) POCT glucose meter (11/09/2024 8:04 [...] Comment 11/09/2024 8:06 PM EDT [facility] Conveyor Technician ID Maximiliano Hansen II 11/09/2024 8:06 PM EDT [facility] Device ID [id number] 11/09/2024 8:06 PM EDT [facility] Specimen Type POC Capillary 11/09/2024 8:06 PM EDT [facility] Blood Capillary blood specimen / Unknown 11/09/2024 8:04 PM EDT 11/09/2024 8:06 PM EDT Nathaly Nowak MD LAB POINT OF CARE TE ST DOCKED DEVICE UNSOLICITED RESULTS Final Result Performing Organization Address [facility] de Phone Number [facility] [address] [place] [address] * (ABNORMAL) POCT glucose meter (11/09/2024 4:36 PM EDT) [facility] POCT Glucose 166(H) 74 - 99 [...] Comment 11/09/2024 4:38 PM EDT [facility] Conveyor Technician ID Kristian Sosa 11/09/2024 4:38 PM EDT [facility]ARE [facility] Device ID [id number] 11/09/2024 4:38 PM EDT [facility]ARE [facility] Specimen Type POC Capillary 11/09/2024 4:38 PM EDT [facility] Blood Capillary blood specimen / Unknown 11/09/2024 4:36 PM EDT 11/09/2024 4:38 PM EDT Nathaly Nowak MD LAB POINT OF CARE TE ST DOCKED DEVICE UNSOLICITED RESULTS Final Result Performing Organization Address City/[facility] Co de Phone Number [facility] [address] [place] [address] * PICC SINGLE LUMEN (SMARTFORM LINK) (11/09/2024 1:11 PM EDT) Narrative Estefani Barraza RN - 11/09/2024 1:11 PM EDT Estefani Barraza RN 11/09/2024 1:12 PM Insert PICC line Date/Time: 11/09/2024 1:11 PM Performed by: Estefani Barraza RN Authorized by: Nathaly Nowak MD [place] Protocol: Verbal consent obtained?: Yes Written consent [...] selection rationale: Left pacemaker Catheter Lot #: [id number] Catheter power plant manager: Dialoggy Catheter placed: Single lumen Catheter size: 4 Fr Catheter trimmed length: 42 Catheter threaded length: 42 Vein placed in: SVC Catheter cm indwellin Catheter cm outside: 0 Placement confirmed by: Quikey 3CG technology Pre-procedure: Landmarks identified Ultrasound guidance: [...] - 99 mg/dL 11/09/2024 11:51 AM EDT [facility] Comment:Accuracy of a glucos e result [...] Comment 11/09/2024 11:51 AM EDT [facility]ALTH[facility]ARE [facility] Conveyor Technician Kristian Greco 11/09/2024 11:51 AM EDT [facility]ARE [facility] Device ID [id number] 11/09/2024 11:51 AM EDT [facility] Specimen Type POC Capillary 11/09/2024 11:51 AM EDT [facility] Blood Capillary blood specimen / Unknown 11/09/2024 11:50 AM EDT 11/09/2024 11:51 AM EDT Nathaly Nowak MD LAB POINT OF CARE TE ST DOCKED DEVICE UNSOLICITED RESULTS Final Result Performing Organization Address City/[facility]/ZIP Co de Phone Number [facility] [address] [place] [address] * (ABNORMAL) POCT glucose meter (11/09/2024 8:14 [...] Comment 11/09/2024 8:15 AM EDT [facility] Conveyor Technician Kristian Greco 11/09/2024 8:15 AM EDT [facility]ARE [facility] Device ID [id number] 11/09/2024 8:15 AM EDT [facility] Specimen Type POC Capillary 11/09/2024 8:15 AM EDT [facility] Blood Capillary blood specimen / Unknown 11/09/2024 8:14 AM EDT 11/09/2024 8:15 AM EDT Nathaly Nowak MD LAB POINT OF CARE TE ST DOCKED DEVICE UNSOLICITED RESULTS Final Result Performing Organization Address City/[facility]/ZIP Co de Phone Number [facility] [address] [place] [address] * (ABNORMAL) CBC and Differential (11/09/2024 4:15 AM EDT) WBC Count 10.27 3.70 - 10.30 10*3/uL LAB HEMATOLOGY METHOD 11/09/2024 4:26 AM EDT [facility] RBC Count 3.14(L) 4.60 - 6.10 10*6/uL LAB HEMATOLOGY METHOD 11/09/2024 4:26 AM EDT [facility] HGB 9.2(L) 13.7 - 17.5 g/dL LAB HEMATOLOGY METHOD 11/09/2024 4:26 AM EDT [facility] HCT 28.3(L) 40.0 - 51.0 % LAB HEMATOLOGY METHOD 11/09/2024 4:26 AM EDT [facility] Platelet Count 468(H) 155 - 369 10*3/uL LAB HEMATOLOGY METHOD 11/09/2024 4:26 AM EDT [facility] MCV 90 79 - 98 fL LAB HEMATOLOGY METHOD 11/09/2024 4:26 AM EDT [facility] MCH 29.3 26.0 - 32.0 pg LAB HEMATOLOGY METHOD 11/09/2024 4:26 AM EDT [facility] MCHC 32.5 30.7 - 35.5 g/dL LAB HEMATOLOGY METHOD 11/09/2024 4:26 AM EDT [facility] RDW 13.1 11.5 - 14.5 % LAB HEMATOLOGY METHOD 11/09/2024 4:26 AM EDT [facility] MPV 8.7(L) 8.8 - 12.5 fL LAB HEMATOLOGY METHOD 11/09/2024 4:26 AM EDT [facility] nRBC 0.0 <=0.0 per 100 WBCs LAB HEMATOLOGY METHOD 11/09/2024 4:26 AM EDT [facility] Differential Type Automated LAB HEMATOLOGY METHOD 11/09/2024 4:26 AM EDT [facility] Neutrophils % 77 % LAB HEMATOLOGY METHOD 11/09/2024 4:26 AM EDT [facility] Lymphocytes % 13 % LAB HEMATOLOGY METHOD 11/09/2024 4:26 AM EDT [facility] Monocytes % 8 % LAB HEMATOLOGY METHOD 11/09/2024 4:26 AM EDT [facility] Eosinophils % 1 % LAB HEMATOLOGY METHOD 11/09/2024 4:26 AM EDT [facility] Basophils % 0 % LAB HEMATOLOGY METHOD 11/09/2024 4:26 AM EDT [facility] Immature Granulocytes % 1 % LAB HEMATOLOGY METHOD 11/09/2024 4:26 AM EDT [facility] Neutrophils Absolute 7.97(H) 1.60 - 6.10 10*3/uL LAB HEMATOLOGY METHOD 11/09/2024 4:26 AM EDT [facility] Lymphocytes Absolute 1.32 1.20 - 3.90 10*3/uL LAB HEMATOLOGY METHOD 11/09/2024 4:26 AM EDT [facility] Monocytes Absolute 0.83 0.30 - 0.90 10*3/uL LAB HEMATOLOGY METHOD 11/09/2024 4:26 AM EDT [facility] Eosinophils Absolute 0.07 0.00 - 0.50 10*3/uL LAB HEMATOLOGY METHOD 11/09/2024 4:26 AM EDT [facility] Basophils Absolute 0.03 0.00 - 0.10 10*3/uL LAB HEMATOLOGY METHOD 11/09/2024 4:26 AM EDT [facility] Immature Granulocytes Absolute 0.05 0.00 - 0.06 10*3/uL LAB HEMATOLOGY METHOD 11/09/2024 4:26 AM EDT [facility] Blood Venous blood specimen / Unknown Venipuncture / Unknown 11/09/2024 4:15 AM EDT 11/09/2024 4:18 AM EDT Narrative [facility] - 11/09/2024 4:26 AM EDT Therapeutic decision making should be based on absolute values, rather than percentages. us Nathaly Nowak MD LAB BLOOD ORDERABLES Final Resu lt [facility] [address] [place] [address] * (ABNORMAL) Comprehensive Metabolic Panel, Plasma (11/09/2024 4:15 AM EDT) Glucose, Plasma 171(H) 74 - 99 mg/dL 11/09/2024 4:47 AM EDT [facility] BUN, Plasma 9 8 - 23 mg/dL 11/09/2024 4:47 AM EDT [facility] Creatinine, Plasma 0.67(L) 0.70 - 1.20 mg/dL 11/09/2024 4:47 AM EDT [facility] BUN/Creatinine Ratio 13 11/09/2024 4:47 AM EDT [facility] Sodium, Plasma 134(L) 136 - 145 mmol/L 11/09/2024 4:47 AM EDT [facility] Potassium, Plasma 4.1 3.6 - 4.9 mmol/L 11/09/2024 4:47 AM EDT [facility] Chloride, Plasma 104 97 - 107 mmol/L 11/09/2024 4:47 AM EDT [facility] CO2, Plasma 21(L) 22 - 29 mmol/L 11/09/2024 4:47 AM EDT [facility] Anion Gap 9 6 - 16 mmol/L 11/09/2024 4:47 AM EDT [facility] Total Calcium, Plasma 8.4(L) 8.9 - 10.2 mg/dL 11/09/2024 4:47 AM EDT [facility] Total Protein 5.8(L) 6.3 - 7.9 g/dL 11/09/2024 4:47 AM EDT [facility] Albumin, Plasma 3.2(L) 3.5 - 5.2 g/dL 11/09/2024 4:47 AM EDT [facility] AST, Plasma 18 10 - 50 U/L 11/09/2024 4:47 AM EDT [facility] ALT, Plasma 17 10 - 50 U/L 11/09/2024 4:47 AM EDT [facility] Alkaline Phosphatase, Plasma 110 40 - 115 U/L 11/09/2024 4:47 AM EDT [facility] Total Bilirubin, Plasma <0.2(L) 0.2 - 1.1 mg/dL 11/09/2024 4:47 AM EDT [facility] eGFRcr 103.6 mL/min/1.7 3m*2 11/09/2024 4:47 AM EDT [facility] Comment:Reported eGFRcr in m L/min/1.73m2 is based the CKD-EPI 2020 equation that does not use a race coefficient. Blood Venous blood specimen / Unknown Venipuncture / Unknown 11/09/2024 4:15 AM EDT 11/09/2024 4:18 AM EDT Nathaly Nowak MD LAB BLOOD ORDERABLES Final Resu lt Performing Organization Address City/[facility]/ZIP Co de Phone Number [facility] [address] [place] [address] * (ABNORMAL) POCT glucose meter (11/09/2024 3:30 [...] Comment 11/09/2024 3:31 AM EDT [facility]ALTH[facility] Conveyor Technician ID Maximiliano Hansen II 11/09/2024 3:31 AM EDT [facility]ALTH[facility]ARE [facility] Device ID [id number] 11/09/2024 3:31 AM EDT [facility] Specimen Type POC Capillary 11/09/2024 3:31 AM EDT [facility] Blood Capillary blood specimen / Unknown 11/09/2024 3:30 AM EDT 11/09/2024 3:31 AM EDT us Nathaly Nowak MD LAB POINT OF CARE TE ST DOCKED DEVICE UNSOLICITED RESULTS Final Result [facility] [address] [place] [address] * (ABNORMAL) POCT glucose meter (11/08/2024 7:21 [...] Comment 11/08/2024 7:22 PM EDT [facility] Conveyor Technician ID Maximiliano Hansen II 11/08/2024 7:22 PM EDT [facility]ARE [facility] Device ID [id number] 11/08/2024 7:22 PM EDT [facility] Specimen Type POC Capillary 11/08/2024 7:22 PM EDT [facility] Blood Capillary blood specimen / Unknown 11/08/2024 7:21 PM EDT 11/08/2024 7:22 PM EDT us Nathaly Nowak MD LAB POINT OF CARE TE ST DOCKED DEVICE UNSOLICITED RESULTS Final Result Performing Organization Address City/State/[facility] Co de Phone Number [facility] [address] [place] [address] * (ABNORMAL) POCT glucose meter (11/08/2024 5:12 [...] Comment 11/08/2024 5:14 PM EDT [facility] Conveyor Technician ID Estefani Sheth 11/08/2024 5:14 PM EDT [facility]ARE [facility] Device ID [id number] 11/08/2024 5:14 PM EDT [facility] Specimen Type POC Capillary 11/08/2024 5:14 PM EDT [facility] Blood Capillary blood specimen / Unknown 11/08/2024 5:12 PM EDT 11/08/2024 5:14 PM EDT us Nathaly Nowak MD LAB POINT OF CARE TE ST DOCKED DEVICE UNSOLICITED RESULTS Final Result Performing Organization Address City/[facility]/ZIP Co de Phone Number [facility] [address] [place] [address] * (ABNORMAL) POCT glucose meter (11/08/2024 12:03 PM EDT) Pathologist [facility] POCT Glucose 191(H) 74 - 99 mg/dL [...] for testing. Comment 11/08/2024 12:05 PM EDT [facility] Conveyor Technician ID Estefani Sheth 11/08/2024 12:05 PM EDT [facility] Device ID [id number] 11/08/2024 12:05 PM EDT [facility] Specimen Type POC Capillary 11/08/2024 12:05 PM EDT [facility] Blood Capillary blood specimen / Unknown 11/08/2024 12:03 PM EDT 11/08/2024 12:05 PM EDT Nathaly Nowak MD LAB POINT OF CARE TE ST DOCKED DEVICE UNSOLICITED RESULTS Final Result Performing Organization Address City/[facility]/ZIP Co de Phone Number [facility] [address] [place] [address] * Vancomycin, Peak, Plasma Please draw ~2 hours after 11/08 0600 dose of vancomycin finishes infusing.Consider obtaining level via peripheral stick. If peripheral stick is not feasible, please ensure that line is flushed well prior to drawing level.... (11/08/2024 9:24 AM EDT) Pathologist [facility] Vancomycin, Peak, Plasma 29.1 20.0 - 40.0 ug/mL 11/08/2024 10:31 AM EDT [facility] Blood Venous blood specimen / Unknown Venipuncture / Unknown 11/08/2024 9:24 AM EDT 11/08/2024 9:47 AM EDT Narrative [facility] - 11/08/2024 10:31 AM EDT Therapeutic Peak level: 20-40ug/mL Supra-therapeutic Peak level: >40 ug/mL us Nathaly Nowak MD LAB BLOOD ORDERABLES Final Resu lt Performing Organization Address City/[facility]/ZIP Co de Phone Number [facility] [address] [place] [address] * (ABNORMAL) POCT glucose meter (11/08/2024 8:00 AM EDT) Pathologist [facility] POCT Glucose 150(H) 74 - 99 [...] Comment 11/08/2024 8:01 AM EDT [facility] Conveyor Technician ID Estefani Sheth 11/08/2024 8:01 AM EDT [facility] Device ID [id number] 11/08/2024 8:01 AM EDT [facility] Specimen Type POC Capillary 11/08/2024 8:01 AM EDT [facility] Blood Capillary blood specimen / Unknown 11/08/2024 8:00 AM EDT 11/08/2024 8:01 AM EDT us Nathaly Nowak MD LAB POINT OF CARE TE ST DOCKED DEVICE UNSOLICITED RESULTS Final Result Performing Organization Address City/[facility]/ZIP Co de Phone Number [facility] [address] [place] [address] * (ABNORMAL) CBC and Differential (11/08/2024 4:39 AM EDT) WBC Count 9.18 3.70 - 10.30 10*3/uL LAB HEMATOLOGY METHOD 11/08/2024 4:58 AM EDT [facility] RBC Count 3.11(L) 4.60 - 6.10 10*6/uL LAB HEMATOLOGY METHOD 11/08/2024 4:58 AM EDT [facility] HGB 9.2(L) 13.7 - 17.5 g/dL LAB HEMATOLOGY METHOD 11/08/2024 4:58 AM EDT [facility] HCT 28.9(L) 40.0 - 51.0 % LAB HEMATOLOGY METHOD 11/08/2024 4:58 AM EDT [facility] Platelet Count 485(H) 155 - 369 10*3/uL LAB HEMATOLOGY METHOD 11/08/2024 4:58 AM EDT [facility] MCV 93 79 - 98 fL LAB HEMATOLOGY METHOD 11/08/2024 4:58 AM EDT [facility] MCH 29.6 26.0 - 32.0 pg LAB HEMATOLOGY METHOD 11/08/2024 4:58 AM EDT [facility] MCHC 31.8 30.7 - 35.5 g/dL LAB HEMATOLOGY METHOD 11/08/2024 4:58 AM EDT [facility] RDW 13.0 11.5 - 14.5 % LAB HEMATOLOGY METHOD 11/08/2024 4:58 AM EDT [facility] MPV 8.8 8.8 - 12.5 fL LAB HEMATOLOGY METHOD 11/08/2024 4:58 AM EDT [facility] nRBC 0.0 <=0.0 per 100 WBCs LAB HEMATOLOGY METHOD 11/08/2024 4:58 AM EDT [facility] Differential Type Automated LAB HEMATOLOGY METHOD 11/08/2024 4:58 AM EDT [facility] Neutrophils % 69 % LAB HEMATOLOGY METHOD 11/08/2024 4:58 AM EDT [facility] Lymphocytes % 17 % LAB HEMATOLOGY METHOD 11/08/2024 4:58 AM EDT [facility] Monocytes % 10 % LAB HEMATOLOGY METHOD 11/08/2024 4:58 AM EDT [facility] Eosinophils % 2 % LAB HEMATOLOGY METHOD 11/08/2024 4:58 AM EDT [facility] Basophils % 1 % LAB HEMATOLOGY METHOD 11/08/2024 4:58 AM EDT [facility] Immature Granulocytes % 1 % LAB HEMATOLOGY METHOD 11/08/2024 4:58 AM EDT [facility] Neutrophils Absolute 6.40(H) 1.60 - 6.10 10*3/uL LAB HEMATOLOGY METHOD 11/08/2024 4:58 AM EDT [facility] Lymphocytes Absolute 1.59 1.20 - 3.90 10*3/uL LAB HEMATOLOGY METHOD 11/08/2024 4:58 AM EDT [facility] Monocytes Absolute 0.87 0.30 - 0.90 10*3/uL LAB HEMATOLOGY METHOD 11/08/2024 4:58 AM EDT [facility] Eosinophils Absolute 0.22 0.00 - 0.50 10*3/uL LAB HEMATOLOGY METHOD 11/08/2024 4:58 AM EDT [facility] Basophils Absolute 0.05 0.00 - 0.10 10*3/uL LAB HEMATOLOGY METHOD 11/08/2024 4:58 AM EDT [facility] Immature Granulocytes Absolute 0.05 0.00 - 0.06 10*3/uL LAB HEMATOLOGY METHOD 11/08/2024 4:58 AM EDT [facility] Blood Venous blood specimen / Unknown Venipuncture / Unknown 11/08/2024 4:39 AM EDT 11/08/2024 4:49 AM EDT Narrative [facility] - 11/08/2024 4:58 AM EDT Therapeutic decision making should be based on absolute values, rather than percentages. us Nathaly Nowak MD LAB BLOOD ORDERABLES Final Resu lt [facility] [address] [place] [address] * (ABNORMAL) Comprehensive Metabolic Panel, Plasma (11/08/2024 4:39 AM EDT) Glucose, Plasma 255(H) 74 - 99 mg/dL 11/08/2024 5:20 AM EDT [facility] BUN, Plasma 10 8 - 23 mg/dL 11/08/2024 5:20 AM EDT [facility] Creatinine, Plasma 0.75 0.70 - 1.20 mg/dL 11/08/2024 5:20 AM EDT [facility] BUN/Creatinine Ratio 13 11/08/2024 5:20 AM EDT [facility] Sodium, Plasma 133(L) 136 - 145 mmol/L 11/08/2024 5:20 AM EDT [facility] Potassium, Plasma 5.2(H) 3.6 - 4.9 mmol/L 11/08/2024 5:20 AM EDT [facility] Chloride, Plasma 105 97 - 107 mmol/L 11/08/2024 5:20 AM EDT [facility] CO2, Plasma 20(L) 22 - 29 mmol/L 11/08/2024 5:20 AM EDT [facility] Anion Gap 8 6 - 16 mmol/L 11/08/2024 5:20 AM EDT [facility] Total Calcium, Plasma 7.7(L) 8.9 - 10.2 mg/dL 11/08/2024 5:20 AM EDT [facility] Total Protein 5.6(L) 6.3 - 7.9 g/dL 11/08/2024 5:20 AM EDT [facility] Albumin, Plasma 2.8(L) 3.5 - 5.2 g/dL 11/08/2024 5:20 AM EDT [facility] AST, Plasma 20 10 - 50 U/L 11/08/2024 5:20 AM EDT [facility] Comment:Hemolyzed, result ma y be falsely increased. ALT, Plasma 14 10 - 50 U/L 11/08/2024 5:20 AM EDT [facility] Alkaline Phosphatase, Plasma 119(H) 40 - 115 U/L 11/08/2024 5:20 AM EDT [facility] Total Bilirubin, Plasma <0.2(L) 0.2 - 1.1 mg/dL 11/08/2024 5:20 AM EDT [facility] eGFRcr 100.1 mL/min/1.7 3m*2 11/08/2024 5:20 AM EDT [facility] Comment:Reported eGFRcr in m L/min/1.73m2 is based the CKD-EPI 2020 equation that does not use a race coefficient. Blood Venous blood specimen / Unknown Venipuncture / Unknown 11/08/2024 4:39 AM EDT 11/08/2024 4:43 AM EDT Nathaly Nowak MD LAB BLOOD ORDERABLES Final Resu lt Performing Organization Address [facility] de Phone Number [facility] [address] [place] [id number] * Vancomycin, Trough, Plasma Please draw ~30 minutes prior to dose due at 0600 on 11/08. Please do NOThold dose awaiting level to return. Consider obtaining level via peripheral stick. If peripheral stick is not feasible, please ensure that line is... (11/08/2024 4:39 AM EDT) [facility] Vancomycin, Trough, Plasma 18.7 10.0 - 20.0 ug/mL 11/08/2024 5:22 AM EDT [facility] Blood Venous blood specimen / Unknown Venipuncture / Unknown 11/08/2024 4:39 AM EDT 11/08/2024 4:43 AM EDT Narrative [facility] - 11/08/2024 5:22 AM EDT Therapeutic Trough level: 10-20ug/mL Supra-therapeutic Trough level: >20 ug/mL Nathaly Nowak MD LAB BLOOD ORDERABLES Final Resu Performing Organization Address [facility] Phone Number [facility] [address] [place] [id number] * (ABNORMAL) POCT glucose meter (11/07/2024 7:26 PM EDT) [facility] POCT Glucose 172(H) 74 - 99 mg/dL 11/07/2024 7:28 PM EDT [facility] Comment:Accuracy of a glucos e result [...] 11/07/2024 7:28 PM EDT [facility] Conveyor Technician ID Hansen Maximiliano WALTERS 11/07/2024 7:28 PM EDT [facility] Device ID [id number] 11/07/2024 7:28 PM EDT [facility] Specimen Type POC Capillary 11/07/2024 7:28 PM EDT [facility] Blood Capillary blood specimen / Unknown 11/07/2024 7:26 PM EDT 11/07/2024 7:28 PM EDT Nathaly Nowak MD LAB POINT OF CARE TE ST DOCKED DEVICE UNSOLICITED RESULTS Final Result Performing Organization Address City/[facility]/ZIP Co de Phone Number [facility] [address] [place] [address] * (ABNORMAL) POCT glucose meter (11/07/2024 5:51 [...] Comment 11/07/2024 5:52 PM EDT [facility] Conveyor Technician ID Brigitte Castellon 11/07/2024 5:52 PM EDT [facility] Device ID [id number] 11/07/2024 5:52 PM EDT [facility] Specimen Type POC Capillary 11/07/2024 5:52 PM EDT [facility] Blood Capillary blood specimen / Unknown 11/07/2024 5:51 PM EDT 11/07/2024 5:52 PM EDT Nathaly Nowak MD LAB POINT OF CARE TE ST DOCKED DEVICE UNSOLICITED RESULTS Final Result Performing Organization Address City/[facility]/ZIP Co de Phone Number [facility] [address] [place] [address] * (ABNORMAL) POCT glucose meter (11/07/2024 4:47 [...] 11/07/2024 4:48 PM EDT [facility] Conveyor Technician ID Estefani Sheth 11/07/2024 4:48 PM EDT [facility] Device ID [id number] 11/07/2024 4:48 PM EDT [facility] Specimen Type POC Capillary 11/07/2024 4:48 PM EDT [facility] Blood Capillary blood specimen / Unknown 11/07/2024 4:47 PM EDT 11/07/2024 4:48 PM EDT Nathaly Nowak MD LAB POINT OF CARE TE ST DOCKED DEVICE UNSOLICITED RESULTS Final Result Performing Organization Address City/State/[facility] Co de Phone Number [facility] [address] [place] [address] * (ABNORMAL) POCT glucose meter (11/07/2024 12:22 PM EDT) [facility] POCT Glucose 172(H) 74 - 99 [...] 11/07/2024 12:24 PM EDT [facility] Conveyor Technician ID Estefani Sheth 11/07/2024 12:24 PM EDT [facility] Device ID [id number] 11/07/2024 12:24 PM EDT [facility] Specimen Type POC Capillary 11/07/2024 12:24 PM EDT [facility] Blood Capillary blood specimen / Unknown 11/07/2024 12:22 PM EDT 11/07/2024 12:24 PM EDT us Nathaly Nowak MD LAB POINT OF CARE TE ST DOCKED DEVICE UNSOLICITED RESULTS Final Result [facility] [address] [place] [address] * (ABNORMAL) CBC and Differential (11/07/2024 11:37 AM EDT) WBC Count 9.96 3.70 - 10.30 10*3/uL LAB HEMATOLOGY METHOD 11/07/2024 12:33 PM EDT [facility] RBC Count 2.81(L) 4.60 - 6.10 10*6/uL LAB HEMATOLOGY METHOD 11/07/2024 12:33 PM EDT [facility] HGB 8.5(L) 13.7 - 17.5 g/dL LAB HEMATOLOGY METHOD 11/07/2024 12:33 PM EDT [facility] HCT 26.0(L) 40.0 - 51.0 % LAB HEMATOLOGY METHOD 11/07/2024 12:33 PM EDT [facility] Platelet Count 524(H) 155 - 369 10*3/uL LAB HEMATOLOGY METHOD 11/07/2024 12:33 PM EDT [facility] MCV 93 79 - 98 fL LAB HEMATOLOGY METHOD 11/07/2024 12:33 PM EDT [facility] MCH 30.2 26.0 - 32.0 pg LAB HEMATOLOGY METHOD 11/07/2024 12:33 PM EDT [facility] MCHC 32.7 30.7 - 35.5 g/dL LAB HEMATOLOGY METHOD 11/07/2024 12:33 PM EDT [facility] RDW 13.1 11.5 - 14.5 % LAB HEMATOLOGY METHOD 11/07/2024 12:33 PM EDT [facility] MPV 9.0 8.8 - 12.5 fL LAB HEMATOLOGY METHOD 11/07/2024 12:33 PM EDT [facility] nRBC 0.0 <=0.0 per 100 WBCs LAB HEMATOLOGY METHOD 11/07/2024 12:33 PM EDT [facility] Differential Type Automated LAB HEMATOLOGY METHOD 11/07/2024 12:33 PM EDT [facility] Neutrophils % 72 % LAB HEMATOLOGY METHOD 11/07/2024 12:33 PM EDT [facility] Lymphocytes % 17 % LAB HEMATOLOGY METHOD 11/07/2024 12:33 PM EDT [facility] Monocytes % 9 % LAB HEMATOLOGY METHOD 11/07/2024 12:33 PM EDT [facility] Eosinophils % 1 % LAB HEMATOLOGY METHOD 11/07/2024 12:33 PM EDT [facility] Basophils % 1 % LAB HEMATOLOGY METHOD 11/07/2024 12:33 PM EDT [facility] Immature Granulocytes % 0 % LAB HEMATOLOGY METHOD 11/07/2024 12:33 PM EDT [facility] Neutrophils Absolute 7.19(H) 1.60 - 6.10 10*3/uL LAB HEMATOLOGY METHOD 11/07/2024 12:33 PM EDT [facility] Lymphocytes Absolute 1.66 1.20 - 3.90 10*3/uL LAB HEMATOLOGY METHOD 11/07/2024 12:33 PM EDT [facility] Monocytes Absolute 0.88 0.30 - 0.90 10*3/uL LAB HEMATOLOGY METHOD 11/07/2024 12:33 PM EDT [facility] Eosinophils Absolute 0.14 0.00 - 0.50 10*3/uL LAB HEMATOLOGY METHOD 11/07/2024 12:33 PM EDT [facility] Basophils Absolute 0.05 0.00 - 0.10 10*3/uL LAB HEMATOLOGY METHOD 11/07/2024 12:33 PM EDT [facility] Immature Granulocytes Absolute 0.04 0.00 - 0.06 10*3/uL LAB HEMATOLOGY METHOD 11/07/2024 12:33 PM EDT [facility] Blood Venous blood specimen / Unknown Venipuncture / Unknown 11/07/2024 11:37 AM EDT 11/07/2024 12:24 PM EDT [facility] - 11/07/2024 12:33 PM EDT Therapeutic decision making should be based on absolute values, rather than percentages. us Nathaly Nowak MD LAB BLOOD ORDERABLES Final Resu lt [facility] [address] [place] [address] * (ABNORMAL) Comprehensive Metabolic Panel, Plasma (11/07/2024 11:37 AM EDT) Glucose, Plasma 173(H) 74 - 99 mg/dL 11/07/2024 1:31 PM EDT [facility] BUN, Plasma 13 8 - 23 mg/dL 11/07/2024 1:31 PM EDT [facility] Creatinine, Plasma 0.92 0.70 - 1.20 mg/dL 11/07/2024 1:31 PM EDT [facility] BUN/Creatinine Ratio 11/07/2024 1:31 PM EDT [facility] Sodium, Plasma 136 136 - 145 mmol/L 11/07/2024 1:31 PM EDT [facility] Potassium, Plasma 4.0 3.6 - 4.9 mmol/L 11/07/2024 1:31 PM EDT [facility] Chloride, Plasma 104 97 - 107 mmol/L 11/07/2024 1:31 PM EDT [facility] CO2, Plasma 23 22 - 29 mmol/L 11/07/2024 1:31 PM EDT [facility] Anion Gap 9 6 - 16 mmol/L 11/07/2024 1:31 PM EDT [facility] Total Calcium, Plasma 7.8(L) 8.9 - 10.2 mg/dL 11/07/2024 1:31 PM EDT [facility] Total Protein 5.7(L) 6.3 - 7.9 g/dL 11/07/2024 1:31 PM EDT [facility] Albumin, Plasma 3.0(L) 3.5 - 5.2 g/dL 11/07/2024 1:31 PM EDT [facility] AST, Plasma 15 10 - 50 U/L 11/07/2024 1:31 PM EDT [facility] ALT, Plasma 16 10 - 50 U/L 11/07/2024 1:31 PM EDT [facility] Alkaline Phosphatase, Plasma 119(H) 40 - 115 U/L 11/07/2024 1:31 PM EDT [facility] Total Bilirubin, Plasma <0.2(L) 0.2 - 1.1 mg/dL 11/07/2024 1:31 PM EDT [facility] eGFRcr 92.3 mL/min/1.7 3m*2 11/07/2024 1:31 PM EDT [facility] Comment:Reported eGFRcr in m L/min/1.73m2 is based the CKD-EPI 2020 equation that does not use a race coefficient. Blood Venous blood specimen / Unknown Venipuncture / Unknown 11/07/2024 11:37 AM EDT 11/07/2024 12:23 PM EDT Nathaly Nowak MD LAB BLOOD ORDERABLES Final Resu lt Performing Organization Address City/[facility]/ZIP Co de Phone Number [facility] [address] [place] [address] * Type and Screen (11/07/2024 11:37 AM EDT) Pathologist [facility] ABO/Rh A Negative 11/06/2024 8:56 AM EDT BLOOD BANK Antibody Screen Negative 11/06/2024 8:56 AM EDT BLOOD BANK Specimen Expiration 11/10/2024 23:59 11/06/2024 8:56 AM EDT BLOOD BANK Blood Venous blood specimen / Unknown Venipuncture / Unknown 11/07/2024 11:37 AM EDT 11/07/2024 11:50 AM EDT [facility] LAB BLOOD BANK TEST ORDERABLES F inal Result Performing Organization Address [facility] de Phone Number BLOOD BANK [address] [place] [address], * (ABNORMAL) POCT glucose meter (11/07/2024 10:34 AM EDT) Pathologist [facility] POCT Glucose 199(H) 74 - 99 mg/dL 11/07/2024 10:36 AM EDT [facility] Comment:Accuracy of a glucos e result [...] Comment 11/07/2024 10:36 AM EDT [facility] Conveyor Technician ID Joy Iraheta 11/07/2024 10:36 AM EDT [facility] Device ID [id number] 11/07/2024 10:36 AM EDT [facility] Specimen Type POC Capillary 11/07/2024 10:36 AM EDT [facility] Blood Capillary blood specimen / Unknown 11/07/2024 10:34 AM EDT 11/07/2024 10:36 AM EDT Nathaly Nowak MD LAB POINT OF CARE TE ST DOCKED DEVICE UNSOLICITED RESULTS Final Result Performing Organization Address City/[facility] Co de Phone Number [facility] [address] [place] [address] * (ABNORMAL) POCT glucose meter (11/07/2024 9:34 AM EDT) [facility] POCT Glucose 208(H) 74 - 99 [...] Comment 11/07/2024 9:36 AM EDT [facility] Conveyor Technician ID Brigitte Castellon 11/07/2024 9:36 AM EDT [facility] Device ID [id number] 11/07/2024 9:36 AM EDT [facility] Specimen Type POC Capillary 11/07/2024 9:36 AM EDT [facility] Blood Capillary blood specimen / Unknown 11/07/2024 9:34 AM EDT 11/07/2024 9:36 AM EDT Nathaly Nowak MD LAB POINT OF CARE TE ST DOCKED DEVICE UNSOLICITED RESULTS Final Result [facility] [address] [place] [address] * (ABNORMAL) POCT glucose meter (11/07/2024 8:20 AM EDT) [facility] POCT Glucose 137(H) 74 - 99 [...] 11/07/2024 8:22 AM EDT [facility] Conveyor Technician ID Estefani Sheth Chris 11/07/2024 8:22 AM EDT [facility] Device ID [id number] 11/07/2024 8:22 AM EDT [facility] Specimen Type POC Capillary 11/07/2024 8:22 AM EDT [facility] Blood Capillary blood specimen / Unknown 11/07/2024 8:20 AM EDT 11/07/2024 8:22 AM EDT Nathaly Nowak MD LAB POINT OF CARE TE ST DOCKED DEVICE UNSOLICITED RESULTS Final Result [facility] [address] [place] [address] * (ABNORMAL) POCT glucose meter (11/07/2024 7:21 AM EDT) [facility] POCT Glucose 151(H) 74 - 99 [...] 11/07/2024 7:22 AM EDT [facility] Conveyor Technician ID Brigitte Castellon 11/07/2024 7:22 AM EDT [facility] Device ID [id number] 11/07/2024 7:22 AM EDT [facility] Specimen Type POC Capillary 11/07/2024 7:22 AM EDT [facility] Blood Capillary blood specimen / Unknown 11/07/2024 7:21 AM EDT 11/07/2024 7:22 AM EDT Nathaly Nowak MD LAB POINT OF CARE TE ST DOCKED DEVICE UNSOLICITED RESULTS Final Result Performing Organization Address City/[facility] Co de Phone Number [facility] [address] [place] [address] * (ABNORMAL) POCT glucose meter (11/07/2024 6:25 [...] Comment 11/07/2024 6:27 AM EDT [facility] Conveyor Technician ID Nelda Gerber 11/08/19 6:27 AM EDT HEALTH[facility]ARE LAB Device ID [id number] 11/07/2024 6:27 AM EDT [facility]ARE [facility] Specimen Type POC Capillary 11/07/2024 6:27 AM EDT [facility] Blood Capillary blood specimen / Unknown 11/07/2024 6:25 AM EDT 11/07/2024 6:27 AM EDT us Nathaly Nowak MD LAB POINT OF CARE TE ST DOCKED DEVICE UNSOLICITED RESULTS Final Result Performing Organization Address City/[facility] Co de Phone Number [facility] [address] [place] [address] * (ABNORMAL) POCT glucose meter (11/07/2024 5:03 [...] Comment 11/07/2024 5:08 AM EDT [facility] Conveyor Technician ID Nelda Gerber 11/08/19 5:08 AM EDT [facility]ALTH[facility]ARE LAB Device ID [id number] 11/07/2024 5:08 AM EDT [facility] Specimen Type POC Capillary 11/07/2024 5:08 AM EDT [facility] Blood Capillary blood specimen / Unknown 11/07/2024 5:03 AM EDT 11/07/2024 5:08 AM EDT Nathaly Nowak MD LAB POINT OF CARE TE ST DOCKED DEVICE UNSOLICITED RESULTS Final Result [facility] [address] [place] [address] * (ABNORMAL) POCT glucose meter (11/07/2024 4:16 AM EDT) [facility] POCT Glucose 142(H) 74 - 99 [...] 11/07/2024 4:18 AM EDT [facility] Conveyor Technician ID Nelda Gerber 11/08/19 4:18 AM EDT [facility]ALTH[facility] LAB Device ID [id number] 11/07/2024 4:18 AM EDT [facility] Specimen Type POC Capillary 11/07/2024 4:18 AM EDT [facility] Blood Capillary blood specimen / Unknown 11/07/2024 4:16 AM EDT 11/07/2024 4:18 AM EDT Nathaly Nowak MD LAB POINT OF CARE TE ST DOCKED DEVICE UNSOLICITED RESULTS Final Result Performing Organization Address [facility] de Phone Number [facility] [address] [place] [address] * (ABNORMAL) POCT glucose meter (11/07/2024 3:21 AM EDT) Pathologist [facility] POCT Glucose 141(H) 74 - 99 mg/dL [...] for testing. Comment 11/07/2024 3:23 AM EDT [facility] Conveyor Technician ID Nelda Gerber 11/08/19 3:23 AM EDT [facility] Device ID [id number] 11/07/2024 3:23 AM EDT [facility] Specimen Type POC Capillary 11/07/2024 3:23 AM EDT [facility] Blood Capillary blood specimen / Unknown 11/07/2024 3:21 AM EDT 11/07/2024 3:23 AM EDT us Nathaly Nowka MD LAB POINT OF CARE TE ST DOCKED DEVICE UNSOLICITED RESULTS Final Result Performing Organization Address City/[facility] de Phone Number [facility] [address] [place] [address] * (ABNORMAL) POCT glucose meter (11/07/2024 2:10 AM EDT) Pathologist [facility] POCT Glucose 146(H) 74 - 99 mg/dL [...] 11/07/2024 2:12 AM EDT [facility] Conveyor Technician ID Nelda Gerber 11/08/19 2:12 AM EDT [facility] Device ID [id number] 11/07/2024 2:12 AM EDT [facility] Specimen Type POC Capillary 11/07/2024 2:12 AM EDT [facility] Blood Capillary blood specimen / Unknown 11/07/2024 2:10 AM EDT 11/07/2024 2:12 AM EDT Nathaly Nowak MD LAB POINT OF CARE TE ST DOCKED DEVICE UNSOLICITED RESULTS Final Result Performing Organization Address [facility] de Phone Number [facility] [address] [place] [address] * (ABNORMAL) POCT glucose meter (11/07/2024 1:08 [...] Comment 11/07/2024 1:10 AM EDT [facility] Conveyor Technician ID Nelda Gerber 11/08/19 1:10 AM EDT [facility] LAB Device ID [id number] 11/07/2024 1:10 AM EDT [facility] Specimen Type POC Capillary 11/07/2024 1:10 AM EDT [facility] Blood Capillary blood specimen / Unknown 11/07/2024 1:08 AM EDT 11/07/2024 1:10 AM EDT us Nathaly Nowak MD LAB POINT OF CARE TE ST DOCKED DEVICE UNSOLICITED RESULTS Final Result Performing Organization Address [facility] Co de Phone Number [facility] [address] [place] [address] * (ABNORMAL) POCT glucose meter (11/07/2024 12:10 AM EDT) [facility] POCT Glucose 127(H) 74 - 99 [...] Comment 11/07/2024 12:13 AM EDT [facility] Conveyor Technician ID Nelda Gerber 11/08/19 12:13 AM EDT [facility] Device ID [id number] 11/07/2024 12:13 AM EDT [facility] Specimen Type POC Capillary 11/07/2024 12:13 AM EDT [facility] Blood Capillary blood specimen / Unknown 11/07/2024 12:10 AM EDT 11/07/2024 12:13 AM EDT Nathaly Nowak MD LAB POINT OF CARE TE ST DOCKED DEVICE UNSOLICITED RESULTS Final Result [facility] [address] [place] [address] * (ABNORMAL) POCT glucose meter (11/06/2024 11:14 PM EDT) [facility] POCT Glucose 71(L) 74 - 99 [...] 11/06/2024 11:16 PM EDT [facility] Conveyor Technician ID Nelda Gerber 11/07/19 11:16 PM EDT [facility] Device ID [id number] 11/06/2024 11:16 PM EDT [facility] Specimen Type POC Capillary 11/06/2024 11:16 PM EDT [facility] Blood Capillary blood specimen / Unknown 11/06/2024 11:14 PM EDT 11/06/2024 11:16 PM EDT Nathaly Nowak MD LAB POINT OF CARE TE ST DOCKED DEVICE UNSOLICITED RESULTS Final Result Performing Organization Address City/[facility]/ZIP Co de Phone Number [facility] [address] [place] [address] * (ABNORMAL) POCT glucose meter (11/06/2024 10:07 [...] Comment 11/06/2024 10:09 PM EDT [facility] Conveyor Technician ID Nelda Gerber 11/07/19 10:09 PM EDT [facility]ALTH[facility]ARE LAB Device ID [id number] 11/06/2024 10:09 PM EDT [facility] Specimen Type POC Capillary 11/06/2024 10:09 PM EDT [facility] Blood Capillary blood specimen / Unknown 11/06/2024 10:07 PM EDT 11/06/2024 10:09 PM EDT Nathaly Nowak MD LAB POINT OF CARE TE ST DOCKED DEVICE UNSOLICITED RESULTS Final Result Performing Organization Address City/[facility]/ZIP Co de Phone Number [facility] [address] [place] [address] * (ABNORMAL) POCT glucose meter (11/06/2024 8:22 [...] 11/06/2024 8:25 PM EDT [facility] Conveyor Technician ID Nelda Gerber 11/07/19 8:25 PM EDT [facility] Device ID [id number] 11/06/2024 8:25 PM EDT [facility] Specimen Type POC Capillary 11/06/2024 8:25 PM EDT [facility] Blood Capillary blood specimen / Unknown 11/06/2024 8:22 PM EDT 11/06/2024 8:25 PM EDT us Nathaly Nowak MD LAB POINT OF CARE TE ST DOCKED DEVICE UNSOLICITED RESULTS Final Result Performing Organization Address City/State/[facility] Co de Phone Number [facility] [address] [place] [address] * (ABNORMAL) POCT glucose meter (11/06/2024 7:31 PM EDT) [facility] Signature POCT Glucose 359(H) 74 - 99 [...] 11/06/2024 7:32 PM EDT [facility] Conveyor Technician ID Nelda Gerber 11/07/19 7:32 PM EDT [facility] Device ID [id number] 11/06/2024 7:32 PM EDT [facility] Specimen Type POC Capillary 11/06/2024 7:32 PM EDT [facility] Blood Capillary blood specimen / Unknown 11/06/2024 7:31 PM EDT 11/06/2024 7:32 PM EDT Nathaly Nowak MD LAB POINT OF CARE TE ST DOCKED DEVICE UNSOLICITED RESULTS Final Result Performing Organization Address City/[facility] Co de Phone Number [facility] [address] [place] [address] * (ABNORMAL) POCT glucose meter (11/06/2024 6:15 [...] for testing. Comment 11/06/2024 6:17 PM EDT [facility] Conveyor Technician ID Estefani Sheth 11/06/2024 6:17 PM EDT [facility] Device ID [id number] 11/06/2024 6:17 PM EDT [facility] Specimen Type POC Capillary 11/06/2024 6:17 PM EDT [facility] Blood Capillary blood specimen / Unknown 11/06/2024 6:15 PM EDT 11/06/2024 6:17 PM EDT Nathaly Nowak MD LAB POINT OF CARE TE ST DOCKED DEVICE UNSOLICITED RESULTS Final Result Performing Organization Address City/[facility] Co de Phone Number [facility] [address] [place] [address] * (ABNORMAL) POCT glucose meter (11/06/2024 4:57 [...] Comment 11/06/2024 4:58 PM EDT [facility] Conveyor Technician ID Estefani Sheth 11/06/2024 4:58 PM EDT [facility]ALTH[facility]ARE LAB Device ID [id number] 11/06/2024 4:58 PM EDT [facility] Specimen Type POC Capillary 11/06/2024 4:58 PM EDT [facility] Blood Capillary blood specimen / Unknown 11/06/2024 4:57 PM EDT 11/06/2024 4:58 PM EDT us Nathaly Nowak MD LAB POINT OF CARE TE ST DOCKED DEVICE UNSOLICITED RESULTS Final Result Performing Organization Address City/[facility]/ZIP Co de Phone Number [facility]ARE [facility] [address] [place] [address] * (ABNORMAL) POCT glucose meter (11/06/2024 2:08 [...] Comment 11/06/2024 2:09 PM EDT [facility] Conveyor Technician ID Brigitte Castellon 11/06/2024 2:09 PM EDT [facility]ALTH[facility]ARE LAB Device ID [id number] 11/06/2024 2:09 PM EDT [facility] Specimen Type POC Capillary 11/06/2024 2:09 PM EDT [facility] Blood Capillary blood specimen / Unknown 11/06/2024 2:08 PM EDT 11/06/2024 2:09 PM EDT us Nathaly Nowak MD LAB POINT OF CARE TE ST DOCKED DEVICE UNSOLICITED RESULTS Final Result Performing Organization Address City/[facility]/ZIP Co de Phone Number [facility] [address] [place] [address] * (ABNORMAL) POCT glucose meter (11/06/2024 12:27 [...] Comment 11/06/2024 12:28 PM EDT [facility]ARE [facility] Conveyor Technician ID Jacinta Galloway 11/06/2024 12:28 PM EDT [facility]ARE LAB Device ID [id number] 11/06/2024 12:28 PM EDT [facility] Specimen Type POC Capillary 11/06/2024 12:28 PM EDT [facility] Blood Capillary blood specimen / Unknown 11/06/2024 12:27 PM EDT 11/06/2024 12:28 PM EDT us Nathaly Nowak MD LAB POINT OF CARE TE ST DOCKED DEVICE UNSOLICITED RESULTS Final Result Performing Organization Address City/State/[facility] Co de Phone Number [facility] [address] [place] [address] * (ABNORMAL) Tissue Culture and Gram Stain (11/06/2024 11:34 AM EDT) [facility] Culture Moderate Growth 7:35 AM EDT [facility] Culture 2+ Enterobacter cloacae complex(A) ANGÉLICA 11/15/2024 7:35 AM EDT [facility] Comment: This isolate has been identified using the FDA Approved [employer] [place] System The organism value for this result has been updated. These results have been appended to the previously preliminary verified report. Edited result: Previously reported as Gram Negative Jesus on 11/07/2024 at 1434 EDT. Culture 2+ Streptococcus mitis/oralis group(A) ANGÉLICA 11/15/2024 7:35 AM EDT [facility] Comment: This isolate has been identified using the FDA Approved [employer] [place] System The organism value for this result has been updated. These results have been appended to the previously preliminary verified report. Culture 2+ Pasteurella stomatis(A) ANGÉLICA 11/15/2024 7:35 AM EDT [facility] Comment: This result was determined by MALDI tof mass spectrometry using the Snapflow database and is for research use only. The organism value for this result has been updated. These results have been appended to the previously preliminary verified report. Gram Stain Result Few Gram negative rods(A) 11/15/2024 7:35 AM EDT [facility] Gram Stain Result Moderate Polymorphonuclear leukocytes(A) 11/15/2024 7:35 AM EDT [facility] Gram Stain Result Few Gram positive cocci in pairs(A) 11/15/2024 7:35 AM EDT [facility] Tissue Topography unknown / Unknown 11/06/2024 11:34 AM EDT 11/06/2024 12:18 PM EDT Comment:Pre-op diagnosis: Surgical wound infection [T81.49XA] Narrative [facility] - 11/15/2024 7:35 AM EDT [...] GENERAL ORDE LAM Edited Result - Final [facility] [address] [place] [address] * (ABNORMAL) Anaerobic Culture (11/06/2024 11:34 AM EDT) Culture No anaerobes isolated 11/14/2024 1:25 PM EDT [facility] Culture Staphylococcus pseudintermedius( A) 11/14/2024 1:25 PM EDT [facility] Comment: This result was determined by [employer]DI tof mass spectrometry using the Snapflow database and is for research use only. This is an appended report. These results have been appended to a previously final verified report. Tissue Topography unknown / Unknown 11/06/2024 11:34 AM EDT 11/06/2024 12:18 PM EDT Comment:Pre-op diagnosis: Surgical wound infection [T81.49XA] Narrative [facility] - 11/14/2024 1:25 PM EDT [...] GENERAL ORDAna FRITZ Edited Result - Final [facility] [address] [place] [address] * (ABNORMAL) Routine Culture and Gram Stain (11/06/2024 11:29 AM EDT) Culture Moderate Growth 5:29 PM EDT [facility] Culture Enterobacter cloacae complex(A) 11/08/2024 5:29 PM EDT [facility] Comment: This isolate has been identified using the FDA Approved [employer] [place] System For susceptibility results refer to: - [id number] The organism value for this result has been updated. These results have been appended to the previously preliminary verified report. Gram Stain Result No polymorphonuclear leukocytes seen 11/08/2024 5:29 PM EDT [facility] Gram Stain Result No organisms seen 11/08/2024 5:29 PM EDT [facility] Swab Topography unknown / Unknown 11/06/2024 11:29 AM EDT 11/06/2024 12:19 PM EDT Comment:Pre-op diagnosis: Surgical wound infection [T81.49XA] Nathaly Nowak MD LAB MICROBIOLOGY - [facility] Final Result Performing Organization Address [facility] Co de Phone Number [facility] [address] [place] [address] * Fungal Culture, Routine (11/06/2024 11:29 AM EDT) Culture No Fungal Growth at 1 Week 11/13/2024 8:29 AM EDT [facility] Swab Topography unknown / Unknown 11/06/2024 11:29 AM EDT 11/06/2024 12:19 PM EDT Comment:Pre-op diagnosis: Surgical wound infection [T81.49XA] Nathaly Nowak MD LAB MICROBIOLOGY - GENERAL ORDE RABLES Final Result Performing Organization Address City/[facility] Co de Phone Number [facility] [address] [place] [address] * (ABNORMAL) Anaerobic Culture (11/06/2024 11:29 AM EDT) Culture No anaerobes isolated 11/14/2024 1:25 PM EDT [facility] Culture Streptococcus mitis/oralis group(A) 11/14/2024 1:25 PM EDT [facility] Comment: This result was determined by [employer] tof mass spectrometry using the Snapflow database and is for research use only. The organism value for this result has been updated. These results have been appended to the previously preliminary verified report. This is a corrected result. Previous organism was Mixed skin clifton on 11/10/2024 at 0718 EDT. Culture Staphylococcus pseudintermedius( A) 11/14/2024 1:25 PM EDT [facility] Comment: This isolate has been identified using the FDA Approved [employer] [place] System This is an appended report. These results have been appended to a previously final verified report. Swab Topography unknown / Unknown 11/06/2024 11:29 AM EDT 11/06/2024 12:19 PM EDT Comment:Pre-op diagnosis: Surgical wound infection [T81.49XA] Narrative [facility] - 11/14/2024 1:25 PM EDT [...] GENERAL ATIYA FRITZ Edited Result - Final [facility] [address] [place] [address] * Routine Culture and Gram Stain (11/06/2024 11:28 AM EDT) Culture No growth at day 4 2024 11:24 AM EDT [facility] Gram Stain Result No organisms seen 11/10/2024 11:24 AM EDT [facility] Gram Stain Result No polymorphonuclear leukocytes seen 11/10/2024 11:24 AM EDT [facility] Swab Topography unknown / Unknown 11/06/2024 11:28 AM EDT 11/06/2024 12:20 PM EDT Comment:Pre-op diagnosis: Surgical wound infection [T81.49XA] us Nathaly Nowak MD LAB MICROBIOLOGY - GENERAL ORDE LAM Final Result Performing Organization Address City/[facility] Co de Phone Number [facility] [address] [place] [address] * Fungal Culture, Routine (11/06/2024 11:28 AM EDT) Culture No Fungal Growth at 1 Week 11/13/2024 8:29 AM EDT [facility] Swab Topography unknown / Unknown 11/06/2024 11:28 AM EDT 11/06/2024 12:20 PM EDT Comment:Pre-op diagnosis: Surgical wound infection [T81.49XA] us Nathaly Nowak MD LAB MICROBIOLOGY - GENERAL ORDE LAM Final Result Performing Organization Address City/[facility] Co de Phone Number [facility] [address] [place] [address] * Anaerobic Culture (11/06/2024 11:28 AM EDT) Culture No growth at day 4 11/13/2024 12:53 PM EDT [facility] Swab Topography unknown / Unknown 11/06/2024 11:28 AM EDT 11/06/2024 12:20 PM EDT Comment:Pre-op diagnosis: Surgical wound infection [T81.49XA] us Nathaly Nowak MD LAB MICROBIOLOGY - GENERAL ORDE RABONEIDA Final Result [facility] [address] [place] [address] * (ABNORMAL) POCT glucose meter (11/06/2024 10:16 AM EDT) [facility] POCT Glucose 194(H) 74 - 99 [...] Comment 11/06/2024 10:18 AM EDT [facility] Conveyor Technician ID Elias, Lacy 11/07/19 10:18 AM EDT [facility] Device ID [id number] 11/06/2024 10:18 AM EDT [facility] Specimen Type POC Capillary 11/06/2024 10:18 AM EDT [facility] Blood Capillary blood specimen / Unknown 11/06/2024 10:16 AM EDT 11/06/2024 10:18 AM EDT Nathaly Nowak MD LAB POINT OF CARE TE ST DOCKED DEVICE UNSOLICITED RESULTS Final Result Performing Organization Address [facility] Co de Phone Number [facility] [address] [place] [address] * (ABNORMAL) POCT glucose meter (11/06/2024 5:58 AM EDT) [facility] POCT Glucose 182(H) 74 - 99 [...] Comment 11/06/2024 6:01 AM EDT [facility] Conveyor Technician ID Raj Laird 11/07/19 6:01 AM EDT [facility] LAB Device ID [id number] 11/06/2024 6:01 AM EDT [facility] Specimen Type POC Capillary 11/06/2024 6:01 AM EDT [facility] Blood Capillary blood specimen / Unknown 11/06/2024 5:58 AM EDT 11/06/2024 6:01 AM EDT Nathaly Nowak MD LAB POINT OF CARE TE ST DOCKED DEVICE UNSOLICITED RESULTS Final Result Performing Organization Address City/[facility] Co de Phone Number [facility] [address] [place] [address] * (ABNORMAL) POCT glucose meter (11/06/2024 5:36 AM EDT) Pathologist [facility] POCT Glucose 202(H) 74 - 99 [...] 11/06/2024 5:38 AM EDT [facility] Conveyor Technician ID Shahid Sanches 11/06/2024 5:38 AM EDT [facility]ARE LAB Device ID [id number] 11/06/2024 5:38 AM EDT [facility] Specimen Type POC Capillary 11/06/2024 5:38 AM EDT [facility] Blood Capillary blood specimen / Unknown 11/06/2024 5:36 AM EDT 11/06/2024 5:38 AM EDT us Nathaly Nowak MD LAB POINT OF CARE TE ST DOCKED DEVICE UNSOLICITED RESULTS Final Result Performing Organization Address City/[facility] Co de Phone Number [facility] [address] [place] [address] * (ABNORMAL) Hemoglobin A1c (11/06/2024 1:07 AM EDT) Hemoglobin A1c 7.6(H) <5.7 % 11/06/2024 11:09 AM EDT [facility] Blood Venous blood specimen / Unknown Venipuncture / Unknown 11/06/2024 1:07 AM EDT 11/06/2024 1:26 AM EDT Narrative [facility] - 11/06/2024 11:09 AM EDT HA1C Interpretive Data: Diagnosis of Diabetes: Diabetic > or = 6.5% Pre-diabetic 5.7 to 6.4% Non-diabetic < or = 5.6% Glycemic Targets for Type I and Type II Diabetics: Non- Adults <7.0% Adults <6.0% Children and Adolescents <7.5% Source: [place] [employer]. Standards of medical care in diabetes,2017. Diabetes Care.2017:40 (suppl 1):S1-S135. us Nathaly Nowak MD LAB BLOOD ORDERABLES Final Resu lt Performing Organization Address City/[facility]/ZIP Co de Phone Number [facility] [address] [place] [address] * Blood Culture (Aerobic/Anaerobet Set) (11/06/2024 1:07 AM EDT) Culture No growth at day 5 11/11/2024 2:49 AM EDT [facility] Blood Structure of right hand / Unknown Venipuncture / Unknown 11/06/2024 1:07 AM EDT 11/06/2024 2:36 AM EDT us Nathaly Nowak MD LAB MICROBIOLOGY - GENERAL ORDE RABLES Final Result [facility] [address] [place] [address] * Blood Culture (Aerobic/Anaerobet Set) (11/06/2024 1:07 AM EDT) Culture No growth at day 5 11/11/2024 3:01 AM EDT [facility] Blood Structure of antecubital vein / Unknown Venipuncture / Unknown 11/06/2024 1:07 AM EDT 11/06/2024 2:36 AM EDT us Nathaly Nowak MD LAB MICROBIOLOGY - GENERAL ORDAna FRITZ Final Result [facility] [address] [place] [address] * (ABNORMAL) Basic metabolic panel (11/06/2024 1:07 AM EDT) Glucose, Plasma 207(H) 74 - 99 mg/dL 11/06/2024 1:41 AM EDT [facility] BUN, Plasma 20 8 - 23 mg/dL 11/06/2024 1:41 AM EDT [facility] Creatinine, Plasma 0.92 0.70 - 1.20 mg/dL 11/06/2024 1:41 AM EDT [facility] BUN/Creatinine Ratio 22 11/06/2024 1:41 AM EDT [facility] Sodium, Plasma 136 136 - 145 mmol/L 11/06/2024 1:41 AM EDT [facility] Potassium, Plasma 4.5 3.6 - 4.9 mmol/L 11/06/2024 1:41 AM EDT [facility] Chloride, Plasma 104 97 - 107 mmol/L 11/06/2024 1:41 AM EDT [facility] CO2, Plasma 22 22 - 29 mmol/L 11/06/2024 1:41 AM EDT [facility] Anion Gap 10 6 - 16 mmol/L 11/06/2024 1:41 AM EDT [facility] Total Calcium, Plasma 9.0 8.9 - 10.2 mg/dL 11/06/2024 1:41 AM EDT [facility] eGFRcr 92.3 mL/min/1.7 3m*2 11/06/2024 1:41 AM EDT [facility] Comment:Reported eGFRcr in m L/min/1.73m2 is based the CKD-EPI 2020 equation that does not use a race coefficient. Blood Venous blood specimen / Unknown Venipuncture / Unknown 11/06/2024 1:07 AM EDT 11/06/2024 1:12 AM EDT us Nathaly Nowak MD LAB BLOOD ORDERABLES Final Resu lt Performing Organization Address [facility]/ZIP Co de Phone Number [facility] [address] [place] [address] * Phosphorus (11/06/2024 1:07 AM EDT) Phosphorus, Plasma 3.2 2.5 - 4.5 mg/dL 11/06/2024 1:41 AM EDT [facility] Blood Venous blood specimen / Unknown Venipuncture / Unknown 11/06/2024 1:07 AM EDT 11/06/2024 1:12 AM EDT Nathaly Nowak MD LAB BLOOD ORDERABLES Final Resu lt Performing Organization Address [facility] Co de Phone Number [facility] [address] [place] [address] * Magnesium (11/06/2024 1:07 AM EDT) Magnesium, Plasma 2.2 1.9 - 2.4 mg/dL 11/06/2024 1:41 AM EDT [facility] Blood Venous blood specimen / Unknown Venipuncture / Unknown 11/06/2024 1:07 AM EDT 11/06/2024 1:12 AM EDT Nathaly Nowak MD LAB BLOOD ORDERABLES Final Resu lt Performing Organization Address City/[facility]/ZIP Co de Phone Number [facility] [address] [place] [address] * (ABNORMAL) CBC (11/06/2024 1:07 AM EDT) WBC Count 9.70 3.70 - 10.30 10*3/uL LAB HEMATOLOGY METHOD 11/06/2024 1:19 AM EDT [facility] RBC Count 2.89(L) 4.60 - 6.10 10*6/uL LAB HEMATOLOGY METHOD 11/06/2024 1:19 AM EDT [facility] HGB 8.8(L) 13.7 - 17.5 g/dL LAB HEMATOLOGY METHOD 11/06/2024 1:19 AM EDT [facility] HCT 26.2(L) 40.0 - 51.0 % LAB HEMATOLOGY METHOD 11/06/2024 1:19 AM EDT [facility] Platelet Count 542(H) 155 - 369 10*3/uL LAB HEMATOLOGY METHOD 11/06/2024 1:19 AM EDT [facility] MCV 91 79 - 98 fL LAB HEMATOLOGY METHOD 11/06/2024 1:19 AM EDT [facility] MCH 30.4 26.0 - 32.0 pg LAB HEMATOLOGY METHOD 11/06/2024 1:19 AM EDT [facility] MCHC 33.6 30.7 - 35.5 g/dL LAB HEMATOLOGY METHOD 11/06/2024 1:19 AM EDT [facility] RDW 13.2 11.5 - 14.5 % LAB HEMATOLOGY METHOD 11/06/2024 1:19 AM EDT [facility] MPV 8.7(L) 8.8 - 12.5 fL LAB HEMATOLOGY METHOD 11/06/2024 1:19 AM EDT [facility] nRBC 0.0 <=0.0 per 100 WBCs LAB HEMATOLOGY METHOD 11/06/2024 1:19 AM EDT [facility] Blood Venous blood specimen / Unknown Venipuncture / Unknown 11/06/2024 1:07 AM EDT 11/06/2024 1:12 AM EDT us Nathaly Nowak MD LAB BLOOD ORDERABLES Final Resu lt [facility] [address] [place] [address] * [facility] (11/06/2024 12:58 AM EDT) Extra Hold for add-ons 11/06/2024 3:21 AM EDT [facility] Comment:Auto resulted. Blood Venous blood specimen / Unknown 11/06/2024 12:58 AM EDT 11/06/2024 1:13 AM EDT us Nathaly Nowak MD LAB BLOOD ORDERABLES Final Resu lt Performing Organization Address [facility]/ZIP Co de Phone Number [facility] [address] [place] [address] * Gold Top (11/06/2024 12:58 AM EDT) Extra Hold for add-ons 11/06/2024 3:21 AM EDT [facility] Comment:Auto resulted. Blood Venous blood specimen / Unknown 11/06/2024 12:58 AM EDT 11/06/2024 1:13 AM EDT us Nathaly Nowak MD LAB BLOOD ORDERABLES Final Resu lt Performing Organization Address [facility] Co de Phone Number [facility] [address] [place] [address] * Light Green Top (11/06/2024 12:58 AM EDT) Extra Hold for add-ons 11/06/2024 3:21 AM EDT [facility] Comment:Auto resulted. Blood Venous blood specimen / Unknown 11/06/2024 12:58 AM EDT 11/06/2024 1:13 AM EDT us Nathaly Nowak MD LAB BLOOD ORDERABLES Final Resu lt Performing Organization Address [facility] Co de Phone Number [facility] [address] [place] [address] * Light Blue Top (11/06/2024 12:58 AM EDT) Extra Hold for add-ons 11/06/2024 3:21 AM EDT [facility] Comment:Auto resulted. Blood Venous blood specimen / Unknown 11/06/2024 12:58 AM EDT 11/06/2024 1:13 AM EDT us Nathaly Nowak MD LAB BLOOD ORDERABLES Final Resu lt Performing Organization Address [facility]/ZIP Co de Phone Number [facility] [address] [place] [address] * Light Blue Top (11/06/2024 12:58 AM EDT) Pathologist [facility] Extra Hold for add-ons 11/06/2024 3:21 AM EDT [facility] Comment:Auto resulted. Blood Venous blood specimen / Unknown 11/06/2024 12:58 AM EDT 11/06/2024 1:13 AM EDT Nathaly Nowak MD LAB BLOOD ORDERABLES Final Resu lt Performing Organization Address City/[facility]/ZIP Co de Phone Number [facility] [address] [place] [address] * (ABNORMAL) POCT glucose meter (11/06/2024 12:45 AM EDT) [facility] POCT Glucose 204(H) 74 - 99 [...] Comment 11/06/2024 12:48 AM EDT [facility] Conveyor Technician ID Raj Laird 11/07/19 25 12:48 AM EDT [facility]ALTH[facility]ARE LAB Device ID [id number] 11/06/2024 12:48 AM EDT [facility] Specimen Type POC Capillary 11/06/2024 12:48 AM EDT [facility] Blood Capillary blood specimen / Unknown 11/06/2024 12:45 AM EDT 11/06/2024 12:48 AM EDT us Nathaly Nowak MD LAB POINT OF CARE TE ST DOCKED DEVICE UNSOLICITED RESULTS Final Result Performing Organization Address City/[facility] Co de Phone Number [facility] [address] [place] [address] documented in this encounter Visit Diagnoses Diagnosis [...] needed, Starting on Mon11/06/24 at 0031, Until [facility] 11/14/24 at 1804, Routine, line care [...] needed, Starting on Mon11/06/24 at 0753, Until [facility] 11/14/24 at 1804, Routine, On Unit - Preprocedure, line care sodium chloride 0.9 % flush 10 mL 10 mL, Intravenous, Every 12 hours, First dose on [facility] 11/09/24 at 1515, Until Discontinued, Routine Given [...] Provider: Devora Bo) 0018 (Given - Provider: Jonatahn Vale, CHRISTIAN) oxyCODONE (Roxicodone) immediate release tablet [...] documented as of this encounter Care Teams Cardiac Cath Technician Relationship Specialty Start Date End Date Asad Victor MD [address] [place] [address] PCP - General 10/07/22 documented as of this encounter
--- OUTSIDE RECORDS SUMMARY | 2024-11-06 10:08 | XMS_ITS | Encounter Summary ---
Author Organization Healthcare Address [address] [place] [address] Care Team Providers Care Artist Relationship Manager Name Role Phone Asad Victor MD Primary Care Provider + [phone] Reason for Visit * Reason Comments Post-op Problem Wound Check * Auth/Cert (Routine) Specialty Diagnoses / Procedures Referred By Contac t Referred To Contact Diagnoses Wound infection Post-op Vasc Sx wounds - sx on 10/17 at Nathaly Nowak MD [address] [address] Phone: tel: fax: [facility] Emergency Department [address] [place] [address] Phone: tel: Referral ID Status Reason Start Date Expiration Date Visits Re quested Visits Authorized [id number] 1 1 Encounter Details Date Type Department Care Team (Late st Contact Info) Description 11/06/2024 10:08 AM EDT - 11/06/2024 11:38 AM EDT Surgery [facility] OPERATING ROOM [address] [place] [address] Nathaly Nowak MD [id number] [place] [address] Left groin exploration and washout, [...] were you homeless or living in a intermediate (including now)? 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 0 10/18/2021 CAGE Questionnaire Score 0 022 Utilities Answer Date Recorded In the past 12 months has [employer], gas, oil, or water [employer] threatened to shut off services in your [...] Carmona with any questions or concerns at [phone]. It is important that you get your [...] Note Bev Borja 64 y.o. 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 Please arrive at 11 am daily. [facility] [address] Go to Wound care clinic. First appointment is 1:10 pm. Please call [phone] with scheduling concerns. Discharge Transportation: Transportation Anticipated: medical transport Transportation Home at Discharge: Medical Transport Follow Up Transport: Transportation Needed to Follow up Appoinments: Medical Transport Additional Comments: Patient discharging home. No other SW needs identified. Mariia Monterroso BAND SALVAGER * Discharge Summary - Melecio Echevarria DO - 11/14/2024 12:46 PM EDT Hospitalization Admit Date/Time: 11/05/2024 9:45 PM Admitting Attending: Nathaly Nowak Discharge Date: 11/14/2024 Discharge Attending Physician: Nathaly Nowak MD PCP name and Address: Asad Victor MD (Inactive) [address] [place] [address] / [place] [address] Referring provider name and address: Wade Cowart, DO [address] [place] [address] Chief Concern, Brief History of Present Illness, and Hospital Course Mr. Borja is a 64 y/o male that presented to [facility] on 11/06/2024 for surgical wound infection s/p [...] Your Medications [facility] - GLENDA Solorzano - [address], [place] [address] ertapenem injection micafungin injection Discharge Diagnosis Medical [...] Provider Department Center 11/26/2024 2:00 PM [facility] 11/26/2024 2:30 PM [facility] 2 [facility] 11/26/2024 3:20 PM [facility]uster [facility] 11/29/2024 2:30 PM Oscar Appiah MD [id number] Craig Test Results Pending At Discharge Pending Labs [...] a 64 y/o male that presented to [facility] on 11/06/2024 for surgical wound infection s/p [...] portions of the procedure(s) and immediately available [facility] the entire duration. See resident note for details. * Progress Notes - Mariia Monterroso - 11/13/2024 1:57 PM EDT Case Management Adult Progress Note Bev Borja 64 y.o. male CSN: [id number] Admission: 11/05/2024 9:45 PM Primary Problem: Wound infection Wound vac to be delivered today by at bedside. SW sent referral/orders to [facility] wound care center (fax [phone]) and infusion clinic (fax [phone]). Plan to discharge tomorrow. SW will continue to follow. Mariia Monterroso BAND SALVAGER * Progress Notes - Bianca Knight PharmD - 11/13/2024 12:55 PM EDT Vancomycin therapy has been stopped per ID recommendation. Pharmacist will sign off from dosing and monitoring vancomycin. Please re- consult a pharmacist if more vancomycin is indicated. Bianca Knight PharmD, [facility] * Progress Notes - Ailin Levy [...] Lumen PICC Antimicrobial Regimen: IV Ertapenem 1g [id number] start date:11/06/2024 Projected End date:12/18/2024 IV Micafungin 150mg [id number] Start date: 11/12/2024 Projected End Date: 12/24/2024 [...] OPAT Team Attn: Dr Kraus Fax #: [phone] Appointments: (Dr Appiah 08/02/2024 at 2.30pm) at: [facility]: [address] [place] [address] (Select Option 3 for IV Antibiotic / PICC line related issues) For questions regarding OPAT prior to discharge, reach out to the OPAT team via [employer] Secure Chat (Group: OPAT Referral Team). For all questions regarding OPAT after discharge should be directed to the OPAT Team at (Select Option 3 for IV Antibiotics/PICC Issues) between 8am-5pm. After 5 pm, or during weekends/ holidays, please call the paging label press operator at to reach the on-call [...] from the original note were not included. [facility] Department of Surgery Division of Vascular Surgery Surgery Progress Note 11/13/24 Bev Borja Subjective Subjective: HPI 64yoM PMHx COPD, T2DM, HLD, HTN, RLS, CAD s/p PCI (on Xarelto) s/p pacemaker c/b left SANDIP pseudoaneurysm s/p thrombin injection 09/21/24, CLI s/p left femoral endarterectomy with EIA/[employer]ER stenting 10/17/24, who presented to [facility] 11/05/2024 with wound infection. 11/06/24: [...] 09/21/24, CLI s/p left femoral endarterectomy with EIA/[employer]ER stenting 10/17/24, who presented to [facility] 11/05/2024 with wound infection. POD [...] the findings. Cardiac Device Check - PRE-OR [facility] EP-Device Clinic: Pre-operative CIED Report Assessment and Sara-Procedural Reommendations: Name: Bev Borja Date: 10/17/2024 : 1960 Age: 64 y.o. 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 Lead integrity [...] recommendations. Supporting reports can be found in [employer] media file. Micro: Susceptibility data from [...] Units Date/Time Tissue Culture and Gram Stain [[id number]] (Abnormal) (Susceptibility) Collected: 11/06/24 1134 Order Status: Completed Specimen: Tissue from Other (specify site) Updated: 11/12/24 1334 Culture Moderate Growth 2+ Enterobacter cloacae complex Comment: This isolate has been identified using the FDA Approved [employer] CA System The organism value for this result has been updated. These results have been appended to the previously preliminary verified report. Edited result: Previously reported as Gram Negative Jesus on 11/07/2024 at 1434 EDT. 2+ Streptococcus mitis/oralis group Comment: This isolate has been identified using the FDA Approved MALDI [employer] Resources[employer]per CA System The organism value for this result has been updated. These results have been appended to the previously preliminary verified report. 2+ Pasteurella stomatis Comment: This result was determined by MALDI tof mass spectrometry using the [employer] database and is for research use [...] stewardship team. Comprehensive GI Panel by PCR [[id number]] (Normal) Collected: 11/12/24 0950 Order Status: Completed [...] if clinically indicated. Clostridiodes (Clostridium) difficile PCR [[id number]] (Normal) Collected: 11/12/24 0950 Order Status: Completed [...] high complexity clinical laboratory testing. Anaerobic Culture [[id number]] Collected: 11/06/24 1128 Order Status: Completed Specimen: Swab from Other (specify site) Updated: 11/12/24 1118 Culture No growth at day 4 Fungal Culture, Tissue and ISIDRO [[id number]] (Abnormal) Collected: 11/06/24 1134 Order Status: Completed Specimen: Tissue from Other (specify site) Updated: 11/12/24 1033 Culture Reading Mycological 4 Weeks Rare [place] Sana parapsilosis Comment: This isolate has been identified using the FDA Approved [employer] CA System The organism value for this result has been updated. These results have been appended to the previously preliminary verified report. Edited result: Previously reported as Yeast on 11/11/2024 at 1317 EDT. ISIDRO No fungal elements seen Additional Susceptibilities and/or Identification [[id number]] Collected: 11/11/24 1240 Order Status: Completed Specimen: Tissue from Wound (specify site): Additional Susceptibilities and/or Identification [[id number]] Collected: 11/11/24 1238 Order Status: Completed Specimen: Tissue from Wound (specify site): Additional Susceptibilities and/or Identification [[id number]] Collected: 11/11/24 1237 Order Status: Completed Specimen: Tissue from Wound (specify site): AFB Culture, Non Respiratory Source and Acid Fast Stain [[id number]] Collected: 11/06/24 1134 Order Status: Completed Specimen: Tissue from Other (specify site) Updated: 11/11/24 0938 AFB Culture No Mycobacterial Growth <1 Week Acid Fast Stain No acid fast bacilli seen Blood Culture (Aerobic/Anaerobet Set) [[id number]] Collected: 11/06/24106 Order Status: Completed Specimen: Blood from AC, Left Updated: 11/11/24 0301 Culture No growth at day 5 Blood Culture (Aerobic/Anaerobet Set) [[id number]] Collected: 11/06/24106 Order Status: Completed Specimen: Blood [...] [facility]SH. [facility] [...] to stay a facility, plan for h [facility] daily IV abx. Plan for ID outpatient [...] mg 1,000 mg Oral q6h [facility] Anthony Reyes MD 1,000 mg at [...] Prevent or Manage Pain Flowsheets (Taken 11/11/2024 0289 by Jonathan Vale RN) Sensory Stimulation Regulation: care clustered lighting decreased quiet environment promoted Medication Review/Management: medications reviewed * Consults - Anabel Ovalle RD - 11/12/2024 9:59 AM EDT Adult Nutrition Evaluation Note Bev Borja 64 y.o. male CSN: [id number] Room/Bed 682/682B Nutrition evaluation type: assessment Reason [...] (Room air) O2 Delivery Method: Face tent [place] Coma Scale Score: 15 Loi Scale Score: [...] lb 3.6 oz) BMI (Calculated): 30.41 [place] Body Weight (kg): 67.3 Percent [place] Body Weight: 131 Adjusted Body Weight (kg): [...] oz) Estimated Needs: Kcal/ K-30 Kcal Provided: 0695-0404 Kcal Needs Based On: Adjusted weight Gm Protein/ Kg : 1.2-1.5 Protein Provided: 87-108 Protein Needs Based On: Adjusted weight Metabolic Cart Study Results: Current Nutrition Intake: Diet Order: Adult Diet Diet Texture: Regular Adult Carbohydrate Restriction: Consistent CHO 1 (7026-5959 Jatinder, 65 g/meal) Percent Meals Eaten (%): avg 63% x 6 emals Diet Experience and Nutrition History: Diet Education Provided: Will monitor Pertinent home medications: clopidogrel, docusate sodium, Lantus, Humalog, lisinopril, metoprolol tartrate, pravastatin, rivaroxaban, ropinirole, tamsulosin Cheondoism needs: Nutrition Focused Physical Exam: Physical exam [...] ENDARTERECTOMY N/A 2017 Endarterectomy Carotid Artery from [facility] CORONARY ANGIOPLASTY Left Coronary Angiography With Concomitant Left Heart Catheterization from [facility] CORONARY ARTERY BYPASS GRAFT N/A 2018 3V ELBOW SURGERY Right ENDARTERECTOMY Left 10/17/2024 common/SFA/Profunda thromboendarterectomy, EIA/[employer] B[employer]ER stent HERNIA REPAIR KNEE ARTHROSCOPY Left VASCULAR SURGERY Left 09/21/2024 [employer]LE 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 Quit 2017 Vaping Use Vaping status: Never Used Substance Use Topics Alcohol use: Not Currently Comment: holidays/special occasions Drug use: Yes Types: Marijuana Comment: daily marijuana, 1-2 blunts/day [4] acetaminophen, 1,000 mg, Oral, q6h JUNA aspirin, 81 mg, Oral, Daily cefepime, 2 [...] 09/21/24, CLI s/p left femoral endarterectomy with EIA/[employer]ACHER stenting 10/17/24, who presented to [facility] 11/05/2024 with wound infection. 11/06/24: [...] 09/21/24, CLI s/p left femoral endarterectomy with EIA/[employer] TEACHER stenting 10/17/24, who presented to [facility] 11/05/2024 with wound infection. POD [...] the findings. Cardiac Device Check - PRE-[facility] EP-Device Clinic: Pre-operative CIED Report Assessment and Sara-Procedural Reommendations: Name: Bev Borja Date: 10/17/2024 : 1960 Age: 64 y.o. 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 Lead integrity [...] recommendations. Supporting reports can be found in [employer] media file. Micro: Susceptibility data from [...] Units Date/Time Tissue Culture and Gram Stain [[id number]] (Abnormal) (Susceptibility) Collected: 11/06/24 1134 Order Status: Completed Specimen: Tissue from Other (specify site) Updated: 11/12/24 1334 Culture Moderate Growth 2+ Enterobacter cloacae complex Comment: This isolate has been identified using the FDA Approved [employer] CA System The organism value for this result has been updated. These results have been appended to the previously preliminary verified report. Edited result: Previously reported as Gram Negative Jesus on 11/07/2024 at 1434 EDT. 2+ Streptococcus mitis/oralis group Comment: This isolate has been identified using the FDA Approved [employer] CA System The organism value for this result has been updated. These results have been appended to the previously preliminary verified report. 2+ Pasteurella stomatis Comment: This result was determined by MALDI tof mass spectrometry using the [employer] database and is for research use [...] stewardship team. Comprehensive GI Panel by PCR [[id number]] (Normal) Collected: 11/12/24 0950 Order Status: Completed [...] if clinically indicated. Clostridiodes (Clostridium) difficile PCR [[id number]] (Normal) Collected: 11/12/24 0950 Order Status: Completed [...] high complexity clinical laboratory testing. Anaerobic Culture [[id number]] Collected: 11/06/24 1128 Order Status: Completed Specimen: Swab from Other (specify site) Updated: 11/12/24 1118 Culture No growth at day 4 Fungal Culture, Tissue and ISIDRO [[id number]] (Abnormal) Collected: 11/06/24 1134 Order Status: Completed Specimen: Tissue from Other (specify site) Updated: 11/12/24 1033 Culture Reading Mycological 4 Weeks Rare [place] Sana parapsilosis Comment: This isolate has been identified using the FDA Approved [employer]Atl[employer] CA System The organism value for this result has been updated. These results have been appended to the previously preliminary verified report. Edited result: Previously reported as Yeast on 11/11/2024 at 1317 EDT. ISIDRO No fungal elements seen Additional Susceptibilities and/or Identification [[id number]] Collected: 11/11/24 1240 Order Status: Completed Specimen: Tissue from Wound (specify site): Additional Susceptibilities and/or Identification [[id number]] Collected: 11/11/24 1238 Order Status: Completed Specimen: Tissue from Wound (specify site): Additional Susceptibilities and/or Identification [[id number]] Collected: 11/11/24 1237 Order Status: Completed Specimen: Tissue from Wound (specify site): AFB Culture, Non Respiratory Source and Acid Fast Stain [[id number]] Collected: 11/06/24 1134 Order Status: Completed Specimen: Tissue from Other (specify site) Updated: 11/11/24 0938 AFB Culture No Mycobacterial Growth <1 Week Acid Fast Stain No acid fast bacilli seen Blood Culture (Aerobic/Anaerobet Set) [[id number]] Collected: 11/06/24106 Order Status: Completed Specimen: Blood from AC, Left Updated: 11/11/24 0301 Culture No growth at day 5 Blood Culture (Aerobic/Anaerobet Set) [[id number]] Collected: 11/06/24106 Order Status: Completed Specimen: Blood [...] mg 1,000 mg Oral q6h [facility] Anthony Reyes MD 1,000 mg at 11/12/24 1356 aspirin chewable tablet 81 mg 81 mg Oral Daily Reid Daniels MD 81 mg at 11/12/24 0938 cefepime (Maxipime) 2 g in sodium chloride 0.9% 100 mL IVPB (vial adapter required) 2 g [id number] Reid Daniels MD 36.7 mL/hr at 11/12/24 [...] PM Anthony Reyes MD 0.4 mg at [id number] Vancomycin HCl in NaCl (Vancocin) IVPB 1,000 [...] send him home on micafungin as Rare [place] Sana parapsilosis grew and we do not [...] portions of the procedure(s) and immediately available [facility] the entire duration. See resident note for details. * Progress Notes - Mariia Monterroso - 11/11/2024 1:10 PM EDT Case Management Adult Progress Note Bev Borja 64 y.o. male CSN: [id number] Admission: 11/05/2024 9:45 PM Primary Problem: Wound infection Patient refusing inpatient placement for IV abx. [facility] infusion clinic can provide treatment. Face sheet, IV abx orders, and order for PICC care/labs/dressing changes need to be faxed to [phone]. Voicemail left with wound care clinic. Wound vac approved per , delivery pending. Crysll continue to follow. Mariia Monterroso BAND SALVAGER * Progress Notes - Dotty Sethi MD [...] the findings. Cardiac Device Check - PRE-OR [facility] EP-Device [facility]: Pre-operative CIED Report Assessment and Sara-Procedural Reommendations: Name: Bev Borja Date: 10/17/2024 : 1960 Age: 64 y.o. 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 Lead integrity [...] recommendations. Supporting reports can be found in [employer] media file. Micro: Susceptibility data from [...] Non Respiratory Source and Acid Fast Stain [[id number]] Collected: 11/06/24 1134 Order Status: Completed Specimen: Tissue from Other (specify site) Updated: 11/11/24 0938 AFB Culture No Mycobacterial Growth <1 Week Acid Fast Stain No acid fast bacilli seen Blood Culture (Aerobic/Anaerobet Set) [[id number]] Collected: 11/06/24106 Order Status: Completed Specimen: Blood from AC, Left Updated: 11/11/24 0301 Culture No growth at day 5 Blood Culture (Aerobic/Anaerobet Set) [[id number]] Collected: 11/06/24 010 Order Status: Completed Specimen: Blood from Hand, Right Updated: 11/11/24 0249 Culture No growth at day 5 Anaerobic Culture [[id number]] Collected: 11/06/24 1128 Order Status: Completed Specimen: Swab from Other (specify site) Updated: 11/10/24 1441 Culture No growth at day 4 Routine Culture and Gram Stain [[id number]] Collected: 11/06/24 1128 Order Status: Completed Specimen: Swab from Other (specify site) Updated: 11/10/24 1124 Culture No growth at day 4 Gram Stain Result No organisms seen No polymorphonuclear leukocytes seen Anaerobic Culture [[id number]] (Abnormal) Collected: 11/06/24 112 Order Status: Completed Specimen: Swab from Other (specify site) Updated: 11/10/24 0718 Culture No anaerobes isolated Mixed skin clifton Comment: The organism value for this result has been updated. These results have been appended to the previously preliminary verified report. Narrative: Mixed Skin [place] includes Streptococcus mitis/oralis group and Staphylococcus Pseudintermedius Anaerobic Culture [[id number]] (Abnormal) Collected: 11/06/24 1134 Order Status: Completed [...] OSH. [facility] [...] mL IVPB (vial adapter required) 2 g [id number] Reid Daniels MD 36.7 mL/hr at 11/11/24 [...] PM Anthony Reyes MD 0.4 mg at [id number] Vancomycin HCl in NaCl (Vancocin) IVPB 1,000 [...] 09/21/24, CLI s/p left femoral endarterectomy with EIA/[employer]ER stenting 10/17/24, who presented to [facility] 11/05/2024 with wound infection. 11/06/24: [...] 09/21/24, CLI s/p left femoral endarterectomy with EIA/[employer] TE[employer]ER stenting 10/17/24, who presented to [facility] 11/05/2024 with wound infection. POD [...] Edited by: Reid Daniels MD at 11/11/2024 0839 Dispo: Continue Current Level of Care Reid [...] to follow, Submitted by: Kalpesh Lord PharmD, [facility] 11/10/2024 12:45 PM * Care Plan [...] 09/21/24, CLI s/p left femoral endarterectomy with EIA/[employer] TE[employer]ER stenting 10/17/24, who presented to [facility] 11/05/2024 with wound infection. 11/06/24: [...] 09/21/24, CLI s/p left femoral endarterectomy with EIA/[employer] TE[employer]ER stenting 10/17/24, who presented to [facility] 11/05/2024 with wound infection. 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 11/06/24: [...] 09/21/24, CLI s/p left femoral endarterectomy with EIA/[employer] TE[employer]ER stenting 10/17/24, who presented to [facility] 11/05/2024 with wound infection. POD [...] Level of Care [place] M4 student [facility] Cosigned by Nathaly Nowak [...] Patient reports he went to [facility] 12th floor via w/c yesterday to visit [...] Mobility: Ambulatory- community (was utilizing scooter at [place] since discharge) Mobility Otero: Independent gait with device History of Falls: [...] Mobility Bed Mobility Exam: Scooting/Bridging Level of Oter[place]: Modified independence Bed Mobility Exam: Supine to Sit Level of Otero: Modified [place] Transfers Transfer Exam: Sit to stand Level of [place]ter[place]: Modified independence Assistive Device: Rollator Transfer Exam: Stand to Sit Level of [place]ter[place]: Modified independence Assistive Device: Rollator Ambulation Device: [...] maintain/improve functional mobility and endurance. Standardized Assessments [facility] 6-Clicks Mobility Assessment Difficulty patient [...] Mobility Ambulatory- community (was utilizing scooter at [place] since discharge) Mobility [place] Independent gait with device History of Falls [...] distal to knee) BED MOBILITY Level of [place]ter[place] Physical/Non-physical Assist Adaptive Equipment Utilized Scooting/ Bridging Modified independence Supine to Sit Modified [place]o TRANSFERS Level of Otero Physical/Non-physical Assist Adaptive Equipment Utilized Sit to Stand Modified independence Rollator Stand to sit Modified independence Rollator Toilet Transfer Modified independence Grab bar FUNCTIONAL MOBILITY Ambulation Modified independent 200ft x2 with seated rest break between bouts; RPE 5-7/10. Cues forsafety with rollator brakes. Rollator Comments BALANCE Postural Appearance Posture: Within Functional Limits Level of [place]tero Balance Support Static Sit Independent Feet supported Dynamic Sit Independent Feet supported Static Stand Independent Right upper extremity support, Left upper extremity support (via rollator) Dynamic Stand Independent Right upper extremity support, Left upper extremity support (via rollator) STANDARDIZED ASSESSMENTS [facility] 6-Click Daily Activities Help from Other: Don/Doff Regular Lower Body Clothings: None Help From Other: Bathing: None Help From Other: Toileting: None Help From Other: Don/Doff Upper Body Clothings: None Help From Other: Grooming: None Help From Other: Eating Meals: None [facility] 6 Click - Daily Activities Score: [...] needed areas of treatment space. Level of [place] Interventions Grooming Modified independent Standing sinkside Pt [...] Note Bev Borja 64 y.o. male CSN: [id number] Admission: 11/05/2024 9:45 PM Primary Problem: Wound [...] follow and assist as needed. Mariia Monterroso BAND SALVAGER * Progress Notes - Bianca Knight PharmD [...] by: Bianca Knight, ElizabethD, [facility] 11/08/2024 11:15 AM * Progress Notes [...] 09/21/24, CLI s/p left femoral endarterectomy with EIA/[employer] stenting 10/17/24, who presented to [facility] 11/05/2024 with wound infection. 11/06/24: [...] completed 10/19 Pseudoaneurysm of left femoral artery ([facility]) COPD (chronic obstructive pulmonary disease) ([facility]) Overview Signed 10/18/2021 7:30 PM by Gallo Gallardo MD Not on home inhalers A-fib ([facility]) Overview Addendum 10/19/2021 10:39 AM by Giovanna Junior APRN Hold anticoagulation Metoprolol restarted BPH (benign prostatic hyperplasia) Overview Addendum 10/19/2021 10:41 AM by Giovanna Junior APRN Flomax restarted Subarachnoid hemorrhage ([facility]) Overview Addendum 10/20/2021 8:23 AM by Giovanna Junior APRN Left frontal, right occipital NSGY consulted - Repeat CTH showing slight worsening of tSAH - no need for further imaging, will continue to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 11/13/2024 6:44 AM EDT us Nathaly Nowak MD LAB BLOOD ORDERABLES Final Resu lt [facility] [address] [place] [address] * (ABNORMAL) POCT glucose meter (11/12/2024 8:27 [...] 11/12/2024 8:29 PM EDT [facility] Cotton Tier ID Nelda Gerber 11/13/19 8:29 PM EDT [facility] Device ID [id number] 11/12/2024 8:29 PM EDT [facility] Specimen Type POC Capillary 11/12/2024 8:29 PM EDT [facility] Blood Capillary blood specimen / Unknown 11/12/2024 8:27 PM EDT 11/12/2024 8:29 PM EDT Nathaly Nowak MD LAB POINT OF CARE TE ST DOCKED DEVICE UNSOLICITED RESULTS Final Result [facility] [address] [place] [address] * (ABNORMAL) POCT glucose meter (11/12/2024 5:08 PM EDT) [facility] POCT Glucose 157(H) 74 - 99 mg/dL [...] 11/12/2024 5:10 PM EDT [facility] Cotton Tier ID Braden Wade Collado 5:10 PM EDT [facility] Device ID [id number] 11/12/2024 5:10 PM EDT [facility] Specimen Type POC Capillary 11/12/2024 5:10 PM EDT [facility] Blood Capillary blood specimen / Unknown 11/12/2024 5:08 PM EDT 11/12/2024 5:10 PM EDT us Nathaly Nowak MD LAB POINT OF CARE TE ST DOCKED DEVICE UNSOLICITED RESULTS Final Result Performing Organization Address City/[facility] Co de Phone Number [facility] [address] [place] [address] * (ABNORMAL) POCT glucose meter (11/12/2024 12:36 [...] Comment 11/12/2024 12:38 PM EDT [facility] Cotton Tier ID Wade Feliciano Tobias 12:38 PM EDT [facility] LAB Device ID [id number] 11/12/2024 12:38 PM EDT [facility]ARE [facility] Specimen Type POC Capillary 11/12/2024 12:38 PM EDT [facility] Blood Capillary blood specimen / Unknown 11/12/2024 12:36 PM EDT 11/12/2024 12:38 PM EDT us Nathaly Nowak MD LAB POINT OF CARE TE ST DOCKED DEVICE UNSOLICITED RESULTS Final Result Performing Organization Address City/[facility]/ZIP Co de Phone Number [facility] [address] [place] [address] * Clostridiodes (Clostridium) difficile PCR (11/12/2024 9:50 AM EDT) [facility] C difficile PCR toxin B gene DNA Result Not Detected Not Detected 11/12/2024 11:54 AM EDT [facility] Stool Rectum structure / Unknown Non-blood Collection / Unknown 11/12/2024 9:50 AM EDT 11/12/2024 10:04 AM EDT Narrative [facility] - 11/12/2024 11:54 AM [...] MICROBIOLOGY - GENERAL ORDE LAM Final Result [facility] [address] [place] [address] * Comprehensive GI Panel by PCR (11/12/2024 9:50 AM EDT) Campylobacter PCR Result Not Detected Not Detected 11/12/2024 2:47 PM EDT [facility] Plesiomonas shigelloides PCR Result Not Detected Not Detected 11/12/2024 2:47 PM EDT [facility] Salmonella PCR Result Not Detected Not Detected 11/12/2024 2:47 PM EDT [facility] Vibrio species PCR Result Not Detected Not Detected 11/12/2024 2:47 PM EDT [facility] Vibrio cholerae PCR Result Not Detected Not Detected 11/12/2024 2:47 PM EDT [facility] Yersinia enterocolitica PCR Result Not Detected Not Detected 11/12/2024 2:47 PM EDT [facility] Enteroaggregative E. coli (EAEC) PCR Result Not Detected Not Detected 11/12/2024 2:47 PM EDT [facility] Enteropathogenic E. coli (EPEC) PCR Result Not Detected Not Detected 11/12/2024 2:47 PM EDT [facility] Enterotoxigenic E. coli (ETEC) lt/st PCR Result Not Detected Not Detected 11/12/2024 2:47 PM EDT [facility] Shiga-like Toxin-Producing E.coli (STEC) stx1/stx2 PCR Resu Not Detected Not Detected 11/12/2024 2:47 PM EDT [facility] E coli 0157 PCR Result Not Detected Not Detected 11/12/2024 2:47 PM EDT [facility] Shigella/Enteroinvas tam E. coli (EIEC) PCR Result Not Detected Not Detected 11/12/2024 2:47 PM EDT [facility] Cryptosporidium PCR Result Not Detected Not Detected 11/12/2024 2:47 PM EDT [facility] Cyclospora cayetanensis PCR Result Not Detected Not Detected 11/12/2024 2:47 PM EDT [facility] Entamoeba histolytica PCR Result Not Detected Not Detected 11/12/2024 2:47 PM EDT [facility] Giardia duodenalis (aka Giardia lamblia) PCR Result Not Detected Not Detected 11/12/2024 2:47 PM EDT [facility] Adenovirus F 40/41 PCR Result Not Detected Not Detected 11/12/2024 2:47 PM EDT [facility] Astrovirus PCR Result Not Detected Not Detected 11/12/2024 2:47 PM EDT [facility] Norovirus GI/GII PCR Result Not Detected Not Detected 11/12/2024 2:47 PM EDT [facility] Rotavirus A PCR Result Not Detected Not Detected 11/12/2024 2:47 PM EDT [facility] Sapovirus PCR Result Not Detected Not Detected 11/12/2024 2:47 PM EDT [facility] Stool Rectum structure / Unknown Non-blood Collection / Unknown 11/12/2024 9:50 AM EDT 11/12/2024 10:04 AM EDT Narrative [facility] - 11/12/2024 2:47 PM [...] ORDE RABLES Final Result Performing Organization Address [facility]/ZIP Co de Phone Number [facility] [address] [place] [address] * C-reactive protein (11/12/2024 9:48 AM EDT) [facility] CRP, Plasma <3.0 <=8.0 mg/L 11/12/2024 10:28 AM EDT [facility] Blood Venous blood specimen / Unknown Venipuncture / Unknown 11/12/2024 9:48 AM EDT 11/12/2024 9:59 AM EDT Narrative [facility] - 11/12/2024 10:28 AM EDT This CRP test is appropriate for assessment of infection, systemic inflammation and/or tissue injury. To assess cardiovascular disease risk order high sensitivity CRP (CRPH). Nathaly Nowak MD LAB BLOOD ORDERABLES Final Resu lt Performing Organization Address [facility] Co de Phone Number [facility] [address] [place] [address] * (ABNORMAL) POCT glucose meter (11/12/2024 8:20 AM EDT) [facility] POCT Glucose 138(H) 74 - 99 mg/dL [...] Comment 11/12/2024 8:21 AM EDT [facility] Cotton Tier ID Wade Feliciano 8:21 AM EDT [facility]ALTH[facility]ARE LAB Device ID [id number] 11/12/2024 8:21 AM EDT [facility] LAB Specimen Type POC Capillary 11/12/2024 8:21 AM EDT [facility] Blood Capillary blood specimen / Unknown 11/12/2024 8:20 AM EDT 11/12/2024 8:21 AM EDT Nathaly Nowak MD LAB POINT OF CARE TE ST DOCKED DEVICE UNSOLICITED RESULTS Final Result Performing Organization Address [facility] Co de Phone Number [facility] [address] [place] [address] * (ABNORMAL) POCT glucose meter (11/11/2024 8:18 PM EDT) [facility] POCT Glucose 248(H) 74 - 99 mg/dL [...] Comment 11/11/2024 8:20 PM EDT [facility] Cotton Tier ID Nelda Gerber 11/12/19 8:20 PM EDT HEALTHCARE LAB Device ID [id number] 11/11/2024 8:20 PM EDT [facility] Specimen Type POC Capillary 11/11/2024 8:20 PM ED[address] [facility] Blood Capillary blood specimen / Unknown 11/11/2024 8:18 PM EDT 11/11/2024 8:20 PM EDT Nathaly Nowak MD LAB POINT OF CARE TE ST DOCKED DEVICE UNSOLICITED RESULTS Final Result Performing Organization Address City/[facility] Co de Phone Number [facility] [address] [place] [address] * (ABNORMAL) POCT glucose meter (11/11/2024 5:59 PM EDT) [facility] POCT Glucose 147(H) 74 - 99 mg/dL [...] Comment 11/11/2024 6:01 PM EDT [facility] Cotton Tier ID Wade Feliciano 6:01 PM EDT [facility]ALTHCARE LAB Device ID [id number] 11/11/2024 6:01 PM EDT [facility] LAB Specimen Type POC Capillary 11/11/2024 6:01 PM EDT [facility] Blood Capillary blood specimen / Unknown 11/11/2024 5:59 PM EDT 11/11/2024 6:01 PM EDT Nathaly Nowak MD LAB POINT OF CARE TE ST DOCKED DEVICE UNSOLICITED RESULTS Final Result Performing Organization Address City/[facility]/ZIP Co de Phone Number [facility] [address] [place] [address] * POCT glucose meter (11/11/2024 5:20 PM EDT) [facility] POCT Glucose 84 74 - 99 mg/dL [...] Comment 11/11/2024 5:22 PM EDT [facility] Cotton Tier ID Wade Feliciano 5:22 PM EDT [facility] LAB Device ID [id number] 11/11/2024 5:22 PM EDT [facility] LAB Specimen Type POC Capillary 11/11/2024 5:22 PM EDT [facility] Blood Capillary blood specimen / Unknown 11/11/2024 5:20 PM EDT 11/11/2024 5:22 PM EDT us Nathaly Nowak MD LAB POINT OF CARE TE ST DOCKED DEVICE UNSOLICITED RESULTS Final Result [facility] [address] [place] [address] * MS NEGATIVE PRESSURE WOUND THERAPY DME [...] 11/11/2024 12:10 PM EDT [facility] Cotton Tier ID BradenWade 12:10 PM EDT [facility] Device ID [id number] 11/11/2024 12:10 PM EDT [facility] Specimen Type POC Capillary 11/11/2024 12:10 PM EDT [facility] Blood Capillary blood specimen / Unknown 11/11/2024 12:08 PM EDT 11/11/2024 12:10 PM EDT us Nathaly Nowak MD LAB POINT OF CARE TE ST DOCKED DEVICE UNSOLICITED RESULTS Final Result [facility] [address] [place] [address] * (ABNORMAL) POCT glucose meter (11/11/2024 9:08 [...] for testing. Comment 11/11/2024 9:09 AM EDT [facility] Cotton Tier ID Wade Feliciano 9:09 AM EDT [facility] Device ID [id number] 11/11/2024 9:09 AM EDT [facility] Specimen Type POC Capillary 11/11/2024 9:09 AM EDT [facility] Blood Capillary blood specimen / Unknown 11/11/2024 9:08 AM EDT 11/11/2024 9:09 AM EDT us Nathaly Nowak MD LAB POINT OF CARE TE ST DOCKED DEVICE UNSOLICITED RESULTS Final Result Performing Organization Address City/[facility]/ZIP Co de Phone Number [facility] [address] [place] [address] * POCT glucose meter (11/11/2024 8:27 AM [...] 11/11/2024 8:28 AM EDT [facility] Cotton Tier ID Wade Feliciano 8:28 AM EDT [facility]ALTHCARE LAB Device ID [id number] 11/11/2024 8:28 AM EDT [facility]ALTH[facility]ARE LAB Specimen Type POC Capillary 11/11/2024 8:28 AM EDT [facility] Blood Capillary blood specimen / Unknown 11/11/2024 8:27 AM EDT 11/11/2024 8:28 AM EDT us Nathaly Nowak MD LAB POINT OF CARE TE ST DOCKED DEVICE UNSOLICITED RESULTS Final Result [facility] [address] [place] [address] * (ABNORMAL) Basic Metabolic Panel, Plasma (11/11/2024 1:12 AM EDT) Glucose, Plasma 122(H) 74 - 99 mg/dL 11/11/2024 1:12 AM EDT [facility] BUN, Plasma 10 8 - 23 mg/dL 11/11/2024 1:12 AM EDT [facility] Creatinine, Plasma 0.82 0.70 - 1.20 mg/dL 11/11/2024 1:12 AM EDT [facility] BUN/Creatinine Ratio 12 11/11/2024 1:12 AM EDT [facility] Sodium, Plasma 137 136 - 145 mmol/L 11/11/2024 1:12 AM EDT [facility] Potassium, Plasma 3.9 3.6 - 4.9 mmol/L 11/11/2024 1:12 AM EDT [facility] Chloride, Plasma 110(H) 97 - 107 mmol/L 11/11/2024 1:12 AM EDT [facility] CO2, Plasma 20(L) 22 - 29 mmol/L 11/11/2024 1:12 AM EDT [facility] Anion Gap 7 6 - 16 mmol/L 11/11/2024 1:12 AM EDT [facility] Total Calcium, Plasma 7.6(L) 8.9 - 10.2 mg/dL 11/11/2024 1:12 AM EDT [facility] eGFRcr 97.5 mL/min/1.7 3m*2 11/11/2024 1:12 AM EDT [facility] Comment:Reported eGFRcr in m L/min/1.73m2 is based the CKD-EPI 2020 equation that does not use a race coefficient. Blood Venous blood specimen / Unknown 11/11/2024 12:42 AM EDT us Nathaly Nowak MD LAB BLOOD ORDERABLES Final Resu lt [facility] [address] [place] [address] * (ABNORMAL) CBC W/O Differential (11/11/2024 12:56 AM EDT) WBC Count 11.83(H) 3.70 - 10.30 10*3/uL LAB HEMATOLOGY METHOD 11/11/2024 12:56 AM EDT [facility] RBC Count 2.97(L) 4.60 - 6.10 10*6/uL LAB HEMATOLOGY METHOD 11/11/2024 12:56 AM EDT [facility] HGB 8.9(L) 13.7 - 17.5 g/dL LAB HEMATOLOGY METHOD 11/11/2024 12:56 AM EDT [facility] HCT 27.2(L) 40.0 - 51.0 % LAB HEMATOLOGY METHOD 11/11/2024 12:56 AM EDT [facility] Platelet Count 444(H) 155 - 369 10*3/uL LAB HEMATOLOGY METHOD 11/11/2024 12:56 AM EDT [facility] MCV 92 79 - 98 fL LAB HEMATOLOGY METHOD 11/11/2024 12:56 AM EDT [facility] MCH 30.0 26.0 - 32.0 pg LAB HEMATOLOGY METHOD 11/11/2024 12:56 AM EDT [facility] MCHC 32.7 30.7 - 35.5 g/dL LAB HEMATOLOGY METHOD 11/11/2024 12:56 AM EDT [facility] RDW 13.3 11.5 - 14.5 % LAB HEMATOLOGY METHOD 11/11/2024 12:56 AM EDT [facility] MPV 9.0 8.8 - 12.5 fL LAB HEMATOLOGY METHOD 11/11/2024 12:56 AM EDT [facility] nRBC 0.0 <=0.0 per 100 WBCs LAB HEMATOLOGY METHOD 11/11/2024 12:56 AM EDT [facility] Blood Venous blood specimen / Unknown 11/11/2024 12:42 AM EDT Nathaly Nowak MD LAB BLOOD ORDERABLES Final Resu lt Performing Organization Address City/[facility]/ZIP Co de Phone Number [facility] [address] [place] [address] * (ABNORMAL) POCT glucose meter (11/10/2024 8:25 [...] Comment 11/10/2024 8:28 PM EDT HEALTHCARE LAB Cotton Tier ID Nelda Gerber 11/11/19 8:28 PM EDT HEALTHCARE LAB Device ID [id number] 11/10/2024 8:28 PM EDT HEALTHCARE LAB Specimen Type POC Capillary 11/10/2024 8:28 PM EDT [facility] Blood Capillary blood specimen / Unknown 11/10/2024 8:25 PM EDT 11/10/2024 8:28 PM EDT us Nathaly Nowak MD LAB POINT OF CARE TE ST DOCKED DEVICE UNSOLICITED RESULTS Final Result Performing Organization Address City/[facility]/ZIP Co de Phone Number [facility]ALTHCARE LAB [address] [place] [address] * (ABNORMAL) POCT glucose meter (11/10/2024 4:45 [...] 11/10/2024 4:47 PM EDT [facility] Cotton Tier ID Esperanza Parks 11/10/2024 4:47 PM EDT [facility] Device ID [id number] 11/10/2024 4:47 PM EDT [facility] Specimen Type POC Capillary 11/10/2024 4:47 PM EDT [facility] Blood Capillary blood specimen / Unknown 11/10/2024 4:45 PM EDT 11/10/2024 4:47 PM EDT Nathaly Nowak MD LAB POINT OF CARE TE ST DOCKED DEVICE UNSOLICITED RESULTS Final Result [facility] [address] [place] [address] * (ABNORMAL) POCT glucose meter (11/10/2024 12:13 PM EDT) [facility] POCT Glucose 131(H) 74 - 99 mg/dL [...] 11/10/2024 12:14 PM EDT [facility] Cotton Tier ID Esperanza Parks 11/10/2024 12:14 PM EDT [facility] Device ID [id number] 11/10/2024 12:14 PM EDT [facility] Specimen Type POC Capillary 11/10/2024 12:14 PM EDT [facility]ALTH[facility]ARE LAB Blood Capillary blood specimen / Unknown 11/10/2024 12:13 PM EDT 11/10/2024 12:14 PM EDT us Nathaly Nowak MD LAB POINT OF CARE TE ST DOCKED DEVICE UNSOLICITED RESULTS Final Result Performing Organization Address [facility] Co de Phone Number [facility] [address] [place] [address] * Vancomycin, Peak, Plasma Please draw ~2 hours after 0800 dose of vancomycin finishes infusing. Consider obtaining level via peripheral stick. If peripheral stick is not feasible, please ensure that line is flushed well prior to drawing level. Than... (11/10/2024 10:56 AM EDT) [facility] Vancomycin, Peak, Plasma 23.8 20.0 - 40.0 ug/mL 11/10/2024 11:25 AM EDT [facility] Blood Venous blood specimen / Unknown Venipuncture / Unknown 11/10/2024 10:56 AM EDT 11/10/2024 11:00 AM EDT Narrative [facility] - 11/10/2024 11:25 AM EDT Therapeutic Peak level: 20-40ug/mL Supra-therapeutic Peak level: >40 ug/mL us Abigail Seay MD LAB BLOOD ORDERABLES Final Res ult Performing Organization Address [facility] de Phone Number [facility] [address] [place] [address] * (ABNORMAL) POCT glucose meter (11/10/2024 8:03 AM EDT) [facility] POCT Glucose 174(H) 74 - 99 mg/dL 11/10/2024 8:04 AM EDT [facility] Comment:Accuracy of a glucos e result [...] Comment 11/10/2024 8:04 AM EDT [facility]ALTH[facility] Cotton Tier ID Esperanza Parks 11/10/2024 8:04 AM EDT HEALTHCARE LAB Device ID [id number] 11/10/2024 8:04 AM EDT [facility]ALTHCARE LAB Specimen Type POC Capillary 11/10/2024 8:04 AM EDT [facility] Blood Capillary blood specimen / Unknown 11/10/2024 8:03 AM EDT 11/10/2024 8:04 AM EDT us Nathaly Nowak MD LAB POINT OF CARE TE ST DOCKED DEVICE UNSOLICITED RESULTS Final Result Performing Organization Address [facility] Co de Phone Number [facility]ARE [facility] [address] [place] [address] * Vancomycin, Trough, Plasma Please draw ~30 minutes prior to dose due at 0800 on 11/10. Please do NOThold dose awaiting level to return. Consider obtaining level via peripheral stick. If peripheral stick is not feasible, please ensure that line is... (11/10/2024 7:27 AM EDT) Vancomycin, Trough, Plasma 16.2 10.0 - 20.0 ug/mL 11/10/2024 8:24 AM EDT [facility] Blood Venous blood specimen / Unknown Venipuncture / Unknown 11/10/2024 7:27 AM EDT 11/10/2024 7:51 AM EDT Narrative [facility] - 11/10/2024 8:24 AM EDT Therapeutic Trough level: 10-20ug/mL Supra-therapeutic Trough level: >20 ug/mL us Abigail Seay MD LAB BLOOD ORDERABLES Final Res ult Performing Organization Address City/[facility]/ZIP Co de Phone Number [facility] [address] [place] [address] * (ABNORMAL) CBC and Differential (11/10/2024 12:31 AM EDT) WBC Count 10.80(H) 3.70 - 10.30 10*3/uL LAB HEMATOLOGY METHOD 11/10/2024 12:53 AM EDT [facility] RBC Count 3.06(L) 4.60 - 6.10 10*6/uL LAB HEMATOLOGY METHOD 11/10/2024 12:53 AM EDT [facility] HGB 9.1(L) 13.7 - 17.5 g/dL LAB HEMATOLOGY METHOD 11/10/2024 12:53 AM EDT [facility] HCT 28.0(L) 40.0 - 51.0 % LAB HEMATOLOGY METHOD 11/10/2024 12:53 AM EDT [facility] Platelet Count 501(H) 155 - 369 10*3/uL LAB HEMATOLOGY METHOD 11/10/2024 12:53 AM EDT [facility] MCV 92 79 - 98 fL LAB HEMATOLOGY METHOD 11/10/2024 12:53 AM EDT [facility] MCH 29.7 26.0 - 32.0 pg LAB HEMATOLOGY METHOD 11/10/2024 12:53 AM EDT [facility] MCHC 32.5 30.7 - 35.5 g/dL LAB HEMATOLOGY METHOD 11/10/2024 12:53 AM EDT [facility] RDW 13.2 11.5 - 14.5 % LAB HEMATOLOGY METHOD 11/10/2024 12:53 AM EDT [facility] MPV 8.8 8.8 - 12.5 fL LAB HEMATOLOGY METHOD 11/10/2024 12:53 AM EDT [facility] nRBC 0.0 <=0.0 per 100 WBCs LAB HEMATOLOGY METHOD 11/10/2024 12:53 AM EDT [facility] Differential Type Automated LAB HEMATOLOGY METHOD 11/10/2024 12:53 AM EDT [facility] [facility] Neutrophils % 77 % LAB HEMATOLOGY METHOD 11/10/2024 12:53 AM EDT [facility] Lymphocytes % 13 % LAB HEMATOLOGY METHOD 11/10/2024 12:53 AM EDT [facility] Monocytes % 8 % LAB HEMATOLOGY METHOD 11/10/2024 12:53 AM EDT [facility] Eosinophils % 1 % LAB HEMATOLOGY METHOD 11/10/2024 12:53 AM EDT [facility] Basophils % 0 % LAB HEMATOLOGY METHOD 11/10/2024 12:53 AM EDT [facility] Immature Granulocytes % 1 % LAB HEMATOLOGY METHOD 11/10/2024 12:53 AM EDT [facility] Neutrophils Absolute 8.32(H) 1.60 - 6.10 10*3/uL LAB HEMATOLOGY METHOD 11/10/2024 12:53 AM EDT [facility] Lymphocytes Absolute 1.40 1.20 - 3.90 10*3/uL LAB HEMATOLOGY METHOD 11/10/2024 12:53 AM EDT [facility] Monocytes Absolute 0.89 0.30 - 0.90 10*3/uL LAB HEMATOLOGY METHOD 11/10/2024 12:53 AM EDT [facility] Eosinophils Absolute 0.09 0.00 - 0.50 10*3/uL LAB HEMATOLOGY METHOD 11/10/2024 12:53 AM EDT [facility] Basophils Absolute 0.04 0.00 - 0.10 10*3/uL LAB HEMATOLOGY METHOD 11/10/2024 12:53 AM EDT [facility] Immature Granulocytes Absolute 0.06 0.00 - 0.06 10*3/uL LAB HEMATOLOGY METHOD 11/10/2024 12:53 AM EDT [facility] Blood Venous blood specimen / Unknown Venipuncture / Unknown 11/10/2024 12:31 AM EDT 11/10/2024 12:37 AM EDT Narrative [facility] - 11/10/2024 12:53 AM EDT Therapeutic decision making should be based on absolute values, rather than percentages. us Nathaly Nowak MD LAB BLOOD ORDERABLES Final Resu lt [facility] [address] [place] [address] * (ABNORMAL) Comprehensive Metabolic Panel, Plasma (11/10/2024 12:31 AM EDT) Glucose, Plasma 185(H) 74 - 99 mg/dL 11/10/2024 1:05 AM EDT [facility] BUN, Plasma 9 8 - 23 mg/dL 11/10/2024 1:05 AM EDT [facility] Creatinine, Plasma 0.72 0.70 - 1.20 mg/dL 11/10/2024 1:05 AM EDT [facility] BUN/Creatinine Ratio 13 11/10/2024 1:05 AM EDT [facility] Sodium, Plasma 135(L) 136 - 145 mmol/L 11/10/2024 1:05 AM EDT [facility] Potassium, Plasma 4.0 3.6 - 4.9 mmol/L 11/10/2024 1:05 AM EDT [facility] Chloride, Plasma 106 97 - 107 mmol/L 11/10/2024 1:05 AM EDT [facility] CO2, Plasma 19(L) 22 - 29 mmol/L 11/10/2024 1:05 AM EDT [facility] Anion Gap 10 6 - 16 mmol/L 11/10/2024 1:05 AM EDT [facility] Total Calcium, Plasma 7.8(L) 8.9 - 10.2 mg/dL 11/10/2024 1:05 AM EDT [facility] Total Protein 5.6(L) 6.3 - 7.9 g/dL 11/10/2024 1:05 AM EDT [facility] Albumin, Plasma 3.1(L) 3.5 - 5.2 g/dL 11/10/2024 1:05 AM EDT [facility] AST, Plasma 33 10 - 50 U/L 11/10/2024 1:05 AM EDT [facility] ALT, Plasma 25 10 - 50 U/L 11/10/2024 1:05 AM EDT [facility] Alkaline Phosphatase, Plasma 108 40 - 115 U/L 11/10/2024 1:05 AM EDT [facility] Total Bilirubin, Plasma <0.2(L) 0.2 - 1.1 mg/dL 11/10/2024 1:05 AM EDT [facility] eGFRcr 101.4 mL/min/1.7 3m*2 11/10/2024 1:05 AM EDT [facility] Comment:Reported eGFRcr in m L/min/1.73m2 is based the CKD-EPI 2020 equation that does not use a race coefficient. Blood Venous blood specimen / Unknown Venipuncture / Unknown 11/10/2024 12:31 AM EDT 11/10/2024 12:37 AM EDT us Nathaly Nowak MD LAB BLOOD ORDERABLES Final Resu lt [facility] [address] [place] [address] * (ABNORMAL) POCT glucose meter (11/09/2024 8:04 PM EDT) [facility] POCT Glucose 114(H) 74 - 99 mg/dL [...] Comment 11/09/2024 8:06 PM EDT [facility] Cotton Tier ID Maximiliano Hansen II 11/09/2024 8:06 PM EDT [facility] Device ID [id number] 11/09/2024 8:06 PM EDT [facility] Specimen Type POC Capillary 11/09/2024 8:06 PM EDT [facility] Blood Capillary blood specimen / Unknown 11/09/2024 8:04 PM EDT 11/09/2024 8:06 PM EDT Nathaly Nowak MD LAB POINT OF CARE TE ST DOCKED DEVICE UNSOLICITED RESULTS Final Result Performing Organization Address [facility] Co de Phone Number [facility] [address] [place] [address] * (ABNORMAL) POCT glucose meter (11/09/2024 4:36 PM EDT) [facility] POCT Glucose 166(H) 74 - 99 mg/dL [...] 11/09/2024 4:38 PM EDT [facility] Cotton Tier ID Kristian Sosa 11/09/2024 4:38 PM EDT [facility] Device ID [id number] 11/09/2024 4:38 PM EDT [facility] Specimen Type POC Capillary 11/09/2024 4:38 PM EDT [facility] Blood Capillary blood specimen / Unknown 11/09/2024 4:36 PM EDT 11/09/2024 4:38 PM EDT Nathaly Nowak MD LAB POINT OF CARE TE ST DOCKED DEVICE UNSOLICITED RESULTS Final Result [facility] [address] [place] [address] * PICC SINGLE LUMEN (SMART[employer] LINK) (11/09/2024 1:11 PM EDT) Narrative Estefani Barraza RN - 11/09/2024 1:11 PM EDT Estefani Barraza RN 11/09/2024 1:12 PM Insert PICC line Date/Time: 11/09/2024 1:11 PM Performed by: Estefani Barraza RN Authorized by: Nathaly Nowak MD [place] Protocol: Verbal consent obtained?: Yes Written consent [...] selection rationale: Left pacemaker Catheter Lot #: [id number] Catheter cleaning staff supervisor: Blackstrap Catheter placed: Single lumen Catheter size: 4 [...] Comment 11/09/2024 11:51 AM EDT [facility] Cotton Tier ID Kristian Sosa 11/09/2024 11:51 AM EDT [facility] Device ID [id number] 11/09/2024 11:51 AM EDT [facility] Specimen Type POC Capillary 11/09/2024 11:51 AM EDT [facility] Blood Capillary blood specimen / Unknown 11/09/2024 11:50 AM EDT 11/09/2024 11:51 AM EDT Nathaly Nowak MD LAB POINT OF CARE TE ST DOCKED DEVICE UNSOLICITED RESULTS Final Result [facility] [address] [place] [id number] * (ABNORMAL) POCT glucose meter (11/09/2024 8:14 [...] Comment 11/09/2024 8:15 AM EDT [facility] Cotton Tier ID Kristian Sosa 11/09/2024 8:15 AM EDT [facility] Device ID [id number] 11/09/2024 8:15 AM EDT [facility] Specimen Type POC Capillary 11/09/2024 8:15 AM EDT [facility] Blood Capillary blood specimen / Unknown 11/09/2024 8:14 AM EDT 11/09/2024 8:15 AM EDT us Nathaly Nowak MD LAB POINT OF CARE TE ST DOCKED DEVICE UNSOLICITED RESULTS Final Result Performing Organization Address City/State/[facility] Co de Phone Number [facility] [address] [place] [address] * (ABNORMAL) CBC and Differential (11/09/2024 4:15 AM EDT) WBC Count 10.27 3.70 - 10.30 10*3/uL LAB HEMATOLOGY METHOD 11/09/2024 4:26 AM EDT [facility] RBC Count 3.14(L) 4.60 - 6.10 10*6/uL LAB HEMATOLOGY METHOD 11/09/2024 4:26 AM EDT [facility] HGB 9.2(L) 13.7 - 17.5 g/dL LAB HEMATOLOGY METHOD 11/09/2024 4:26 AM EDT [facility] HCT 28.3(L) 40.0 - 51.0 % LAB HEMATOLOGY METHOD 11/09/2024 4:26 AM EDT [facility] Platelet Count 468(H) 155 - 369 10*3/uL LAB HEMATOLOGY METHOD 11/09/2024 4:26 AM EDT [facility] MCV 90 79 - 98 fL LAB HEMATOLOGY METHOD 11/09/2024 4:26 AM EDT [facility] MCH 29.3 26.0 - 32.0 pg LAB HEMATOLOGY METHOD 11/09/2024 4:26 AM EDT [facility] MCHC 32.5 30.7 - 35.5 g/dL LAB HEMATOLOGY METHOD 11/09/2024 4:26 AM EDT [facility] RDW 13.1 11.5 - 14.5 % LAB HEMATOLOGY METHOD 11/09/2024 4:26 AM EDT [facility] MPV 8.7(L) 8.8 - 12.5 fL LAB HEMATOLOGY METHOD 11/09/2024 4:26 AM EDT [facility] nRBC 0.0 <=0.0 per 100 WBCs LAB HEMATOLOGY METHOD 11/09/2024 4:26 AM EDT [facility] Differential Type Automated LAB HEMATOLOGY METHOD 11/09/2024 4:26 AM EDT [facility] Neutrophils % 77 % LAB HEMATOLOGY METHOD 11/09/2024 4:26 AM EDT [facility] Lymphocytes % 13 % LAB HEMATOLOGY METHOD 11/09/2024 4:26 AM EDT [facility] Monocytes % 8 % LAB HEMATOLOGY METHOD 11/09/2024 4:26 AM EDT [facility] Eosinophils % 1 % LAB HEMATOLOGY METHOD 11/09/2024 4:26 AM EDT [facility] Basophils % 0 % LAB HEMATOLOGY METHOD 11/09/2024 4:26 AM EDT [facility] Immature Granulocytes % 1 % LAB HEMATOLOGY METHOD 11/09/2024 4:26 AM EDT [facility] Neutrophils Absolute 7.97(H) 1.60 - 6.10 10*3/uL LAB HEMATOLOGY METHOD 11/09/2024 4:26 AM EDT [facility] Lymphocytes Absolute 1.32 1.20 - 3.90 10*3/uL LAB HEMATOLOGY METHOD 11/09/2024 4:26 AM EDT [facility] Monocytes Absolute 0.83 0.30 - 0.90 10*3/uL LAB HEMATOLOGY METHOD 11/09/2024 4:26 AM EDT [facility] Eosinophils Absolute 0.07 0.00 - 0.50 10*3/uL LAB HEMATOLOGY METHOD 11/09/2024 4:26 AM EDT [facility] Basophils Absolute 0.03 0.00 - 0.10 10*3/uL LAB HEMATOLOGY METHOD 11/09/2024 4:26 AM EDT [facility] Immature Granulocytes Absolute 0.05 0.00 - 0.06 10*3/uL LAB HEMATOLOGY METHOD 11/09/2024 4:26 AM EDT [facility] Blood Venous blood specimen / Unknown Venipuncture / Unknown 11/09/2024 4:15 AM EDT 11/09/2024 4:18 AM EDT Narrative [facility] - 11/09/2024 4:26 AM EDT Therapeutic decision making should be based on absolute values, rather than percentages. us Nathaly Nowak MD LAB BLOOD ORDERABLES Final Resu lt [facility] [address] [place] [address] * (ABNORMAL) Comprehensive Metabolic Panel, Plasma (11/09/2024 4:15 AM EDT) Glucose, Plasma 171(H) 74 - 99 mg/dL 11/09/2024 4:47 AM EDT [facility] BUN, Plasma 9 8 - 23 mg/dL 11/09/2024 4:47 AM EDT [facility] Creatinine, Plasma 0.67(L) 0.70 - 1.20 mg/dL 11/09/2024 4:47 AM EDT [facility] BUN/Creatinine Ratio 13 11/09/2024 4:47 AM EDT [facility] Sodium, Plasma 134(L) 136 - 145 mmol/L 11/09/2024 4:47 AM EDT [facility] Potassium, Plasma 4.1 3.6 - 4.9 mmol/L 11/09/2024 4:47 AM EDT [facility] Chloride, Plasma 104 97 - 107 mmol/L 11/09/2024 4:47 AM EDT [facility] CO2, Plasma 21(L) 22 - 29 mmol/L 11/09/2024 4:47 AM EDT [facility] Anion Gap 9 6 - 16 mmol/L 11/09/2024 4:47 AM EDT [facility] Total Calcium, Plasma 8.4(L) 8.9 - 10.2 mg/dL 11/09/2024 4:47 AM EDT [facility] Total Protein 5.8(L) 6.3 - 7.9 g/dL 11/09/2024 4:47 AM EDT [facility] Albumin, Plasma 3.2(L) 3.5 - 5.2 g/dL 11/09/2024 4:47 AM EDT [facility] AST, Plasma 18 10 - 50 U/L 11/09/2024 4:47 AM EDT [facility] ALT, Plasma 17 10 - 50 U/L 11/09/2024 4:47 AM EDT [facility] Alkaline Phosphatase, Plasma 110 40 - 115 U/L 11/09/2024 4:47 AM EDT [facility] Total Bilirubin, Plasma <0.2(L) 0.2 - 1.1 mg/dL 11/09/2024 4:47 AM EDT [facility] eGFRcr 103.6 mL/min/1.7 3m*2 11/09/2024 4:47 AM EDT [facility] Comment:Reported eGFRcr in m L/min/1.73m2 is based the CKD-EPI 2020 equation that does not use a race coefficient. Blood Venous blood specimen / Unknown Venipuncture / Unknown 11/09/2024 4:15 AM EDT 11/09/2024 4:18 AM EDT us Nathaly Nowak MD LAB BLOOD ORDERABLES Final Resu lt [facility] [address] [place] [address] * (ABNORMAL) POCT glucose meter (11/09/2024 3:30 AM EDT) POCT Glucose 160(H) 74 - 99 mg/dL 11/09/2024 3:31 AM EDT [facility] Comment:Accuracy of a glucos e result [...] Comment 11/09/2024 3:31 AM EDT [facility] Cotton Tier ID Maximiliano Hansen II 11/09/2024 3:31 AM EDT [facility] Device ID [id number] 11/09/2024 3:31 AM EDT [facility] Specimen Type POC Capillary 11/09/2024 3:31 AM EDT [facility] Blood Capillary blood specimen / Unknown 11/09/2024 3:30 AM EDT 11/09/2024 3:31 AM EDT Nathaly Nowak MD LAB POINT OF CARE TE ST DOCKED DEVICE UNSOLICITED RESULTS Final Result Performing Organization Address City/[facility]/ZIP Co de Phone Number [facility] [address] [place] [address] * (ABNORMAL) POCT glucose meter (11/08/2024 7:21 [...] Comment 11/08/2024 7:22 PM EDT [facility] Cotton Tier ID Maximiliano Hansen II 11/08/2024 7:22 PM EDT [facility] Device ID [id number] 11/08/2024 7:22 PM EDT [facility] Specimen Type POC Capillary 11/08/2024 7:22 PM EDT [facility] Blood Capillary blood specimen / Unknown 11/08/2024 7:21 PM EDT 11/08/2024 7:22 PM EDT Nathaly Nowak MD LAB POINT OF CARE TE ST DOCKED DEVICE UNSOLICITED RESULTS Final Result Performing Organization Address City/[facility]/ZIP Co de Phone Number [facility] [address] [place] [address] * (ABNORMAL) POCT glucose meter (11/08/2024 5:12 PM EDT) [facility] POCT Glucose 178(H) 74 - 99 mg/dL [...] Comment 11/08/2024 5:14 PM EDT [facility] Cotton Tier ID Estefani Sheth 11/08/2024 5:14 PM EDT [facility] Device ID [id number] 11/08/2024 5:14 PM EDT [facility] Specimen Type POC Capillary 11/08/2024 5:14 PM EDT [facility] Blood Capillary blood specimen / Unknown 11/08/2024 5:12 PM EDT 11/08/2024 5:14 PM EDT us Nathaly Nowak MD LAB POINT OF CARE TE ST DOCKED DEVICE UNSOLICITED RESULTS Final Result Performing Organization Address City/State/[facility] Co de Phone Number [facility] [address] [place] [address] * (ABNORMAL) POCT glucose meter (11/08/2024 12:03 PM EDT) [facility] POCT Glucose 191(H) 74 - 99 mg/dL [...] Comment 11/08/2024 12:05 PM EDT [facility] Cotton Tier ID Estefani Sheth 11/08/2024 12:05 PM EDT [facility] Device ID [id number] 11/08/2024 12:05 PM EDT [facility] Specimen Type POC Capillary 11/08/2024 12:05 PM EDT [facility] Blood Capillary blood specimen / Unknown 11/08/2024 12:03 PM EDT 11/08/2024 12:05 PM EDT Nathaly Nowak MD LAB POINT OF CARE TE ST DOCKED DEVICE UNSOLICITED RESULTS Final Result Performing Organization Address [facility] de Phone Number [facility] [address] [place] [address] * Vancomycin, Peak, Plasma Please draw ~2 hours after 11/08 0600 dose of vancomycin finishes infusing.Consider obtaining level via peripheral stick. If peripheral stick is not feasible, please ensure that line is flushed well prior to drawing level.... (11/08/2024 9:24 AM EDT) [facility] Vancomycin, Peak, Plasma 29.1 20.0 - 40.0 ug/mL 11/08/2024 10:31 AM EDT [facility] Blood Venous blood specimen / Unknown Venipuncture / Unknown 11/08/2024 9:24 AM EDT 11/08/2024 9:47 AM EDT Narrative [facility] - 11/08/2024 10:31 AM EDT Therapeutic Peak level: 20-40ug/mL Supra-therapeutic Peak level: >40 ug/mL Nathaly Nowak MD LAB BLOOD ORDERABLES Final Resu lt Performing Organization Address [facility] Phone Number [facility] [address] [place] [address] * (ABNORMAL) POCT glucose meter (11/08/2024 8:00 AM EDT) [facility] POCT Glucose 150(H) 74 - 99 mg/dL 11/08/2024 8:01 AM EDT [facility] Comment:Accuracy of a glucos e [...] Comment 11/08/2024 8:01 AM EDT [facility] Cotton Tier ID Estefani Sheth 11/08/2024 8:01 AM EDT [facility] Device ID [id number] 11/08/2024 8:01 AM EDT [facility] Specimen Type POC Capillary 11/08/2024 8:01 AM EDT [facility] Blood Capillary blood specimen / Unknown 11/08/2024 8:00 AM EDT 11/08/2024 8:01 AM EDT us Nathaly Nowak MD LAB POINT OF CARE TE ST DOCKED DEVICE UNSOLICITED RESULTS Final Result [facility] [address] [place] [address] * (ABNORMAL) CBC and Differential (11/08/2024 4:39 AM EDT) WBC Count 9.18 3.70 - 10.30 10*3/uL LAB HEMATOLOGY METHOD 11/08/2024 4:58 AM EDT [facility] RBC Count 3.11(L) 4.60 - 6.10 10*6/uL LAB HEMATOLOGY METHOD 11/08/2024 4:58 AM EDT [facility] HGB 9.2(L) 13.7 - 17.5 g/dL LAB HEMATOLOGY METHOD 11/08/2024 4:58 AM EDT [facility] HCT 28.9(L) 40.0 - 51.0 % LAB HEMATOLOGY METHOD 11/08/2024 4:58 AM EDT [facility] Platelet Count 485(H) 155 - 369 10*3/uL LAB HEMATOLOGY METHOD 11/08/2024 4:58 AM EDT [facility] MCV 93 79 - 98 fL LAB HEMATOLOGY METHOD 11/08/2024 4:58 AM EDT [facility] MCH 29.6 26.0 - 32.0 pg LAB HEMATOLOGY METHOD 11/08/2024 4:58 AM EDT [facility] MCHC 31.8 30.7 - 35.5 g/dL LAB HEMATOLOGY METHOD 11/08/2024 4:58 AM EDT [facility] RDW 13.0 11.5 - 14.5 % LAB HEMATOLOGY METHOD 11/08/2024 4:58 AM EDT [facility] MPV 8.8 8.8 - 12.5 fL LAB HEMATOLOGY METHOD 11/08/2024 4:58 AM EDT [facility] nRBC 0.0 <=0.0 per 100 WBCs LAB HEMATOLOGY METHOD 11/08/2024 4:58 AM EDT [facility] Differential Type Automated LAB HEMATOLOGY METHOD 11/08/2024 4:58 AM EDT [facility] Neutrophils % 69 % LAB HEMATOLOGY METHOD 11/08/2024 4:58 AM EDT [facility] Lymphocytes % 17 % LAB HEMATOLOGY METHOD 11/08/2024 4:58 AM EDT [facility] Monocytes % 10 % LAB HEMATOLOGY METHOD 11/08/2024 4:58 AM EDT [facility] Eosinophils % 2 % LAB HEMATOLOGY METHOD 11/08/2024 4:58 AM EDT [facility] Basophils % 1 % LAB HEMATOLOGY METHOD 11/08/2024 4:58 AM EDT [facility] Immature Granulocytes % 1 % LAB HEMATOLOGY METHOD 11/08/2024 4:58 AM EDT [facility] Neutrophils Absolute 6.40(H) 1.60 - 6.10 10*3/uL LAB HEMATOLOGY METHOD 11/08/2024 4:58 AM EDT [facility] Lymphocytes Absolute 1.59 1.20 - 3.90 10*3/uL LAB HEMATOLOGY METHOD 11/08/2024 4:58 AM EDT [facility] Monocytes Absolute 0.87 0.30 - 0.90 10*3/uL LAB HEMATOLOGY METHOD 11/08/2024 4:58 AM EDT [facility] Eosinophils Absolute 0.22 0.00 - 0.50 10*3/uL LAB HEMATOLOGY METHOD 11/08/2024 4:58 AM EDT [facility] Basophils Absolute 0.05 0.00 - 0.10 10*3/uL LAB HEMATOLOGY METHOD 11/08/2024 4:58 AM EDT [facility] Immature Granulocytes Absolute 0.05 0.00 - 0.06 10*3/uL LAB HEMATOLOGY METHOD 11/08/2024 4:58 AM EDT [facility] Blood Venous blood specimen / Unknown Venipuncture / Unknown 11/08/2024 4:39 AM EDT 11/08/2024 4:49 AM EDT Narrative [facility] - 11/08/2024 4:58 AM EDT Therapeutic decision making should be based on absolute values, rather than percentages. us Nathaly Nowak MD LAB BLOOD ORDERABLES Final Resu lt [facility] [address] [place] [address] * (ABNORMAL) Comprehensive Metabolic Panel, Plasma (11/08/2024 4:39 AM EDT) Glucose, Plasma 255(H) 74 - 99 mg/dL 11/08/2024 5:20 AM EDT [facility] BUN, Plasma 10 8 - 23 mg/dL 11/08/2024 5:20 AM EDT [facility] Creatinine, Plasma 0.75 0.70 - 1.20 mg/dL 11/08/2024 5:20 AM EDT [facility] BUN/Creatinine Ratio 13 11/08/2024 5:20 AM EDT [facility] Sodium, Plasma 133(L) 136 - 145 mmol/L 11/08/2024 5:20 AM EDT [facility] Potassium, Plasma 5.2(H) 3.6 - 4.9 mmol/L 11/08/2024 5:20 AM EDT [facility] Chloride, Plasma 105 97 - 107 mmol/L 11/08/2024 5:20 AM EDT [facility] CO2, Plasma 20(L) 22 - 29 mmol/L 11/08/2024 5:20 AM EDT [facility] Anion Gap 8 6 - 16 mmol/L 11/08/2024 5:20 AM EDT [facility] Total Calcium, Plasma 7.7(L) 8.9 - 10.2 mg/dL 11/08/2024 5:20 AM EDT [facility] Total Protein 5.6(L) 6.3 - 7.9 g/dL 11/08/2024 5:20 AM EDT [facility] Albumin, Plasma 2.8(L) 3.5 - 5.2 g/dL 11/08/2024 5:20 AM EDT [facility] AST, Plasma 20 10 - 50 U/L 11/08/2024 5:20 AM EDT [facility] Comment:Hemolyzed, result ma y be falsely increased. ALT, Plasma 14 10 - 50 U/L 11/08/2024 5:20 AM EDT [facility] Alkaline Phosphatase, Plasma 119(H) 40 - 115 U/L 11/08/2024 5:20 AM EDT [facility] Total Bilirubin, Plasma <0.2(L) 0.2 - 1.1 mg/dL 11/08/2024 5:20 AM EDT [facility] eGFRcr 100.1 mL/min/1.7 3m*2 11/08/2024 5:20 AM EDT [facility] Comment:Reported eGFRcr in m L/min/1.73m2 is based the CKD-EPI 2020 equation that does not use a race coefficient. Blood Venous blood specimen / Unknown Venipuncture / Unknown 11/08/2024 4:39 AM EDT 11/08/2024 4:43 AM EDT us Nathaly Nowak MD LAB BLOOD ORDERABLES Final Resu lt [facility] [address] [place] [address] * Vancomycin, Trough, Plasma Please draw ~30 minutes prior to dose due at 0600 on 11/08. Please do NOThold dose awaiting level to return. Consider obtaining level via peripheral stick. If peripheral stick is not feasible, please ensure that line is... (11/08/2024 4:39 AM EDT) Vancomycin, Trough, Plasma 18.7 10.0 - 20.0 ug/mL 11/08/2024 5:22 AM EDT [facility] Blood Venous blood specimen / Unknown Venipuncture / Unknown 11/08/2024 4:39 AM EDT 11/08/2024 4:43 AM EDT Narrative [facility] - 11/08/2024 5:22 AM EDT Therapeutic Trough level: 10-20ug/mL Supra-therapeutic Trough level: >20 ug/mL us Nathaly Nowak MD LAB BLOOD ORDERABLES Final Resu lt Performing Organization Address City/[facility]/ZIP Co de Phone Number [facility] [address] [place] [address] * (ABNORMAL) POCT glucose meter (11/07/2024 7:26 [...] Comment 11/07/2024 7:28 PM EDT [facility] Cotton Tier ID Maximiliano Hansen II 11/07/2024 7:28 PM EDT [facility] Device ID [id number] 11/07/2024 7:28 PM EDT [facility] Specimen Type POC Capillary 11/07/2024 7:28 PM EDT [facility] Blood Capillary blood specimen / Unknown 11/07/2024 7:26 PM EDT 11/07/2024 7:28 PM EDT us Nathaly Nowak MD LAB POINT OF CARE TE ST DOCKED DEVICE UNSOLICITED RESULTS Final Result Performing Organization Address City/[facility] Co de Phone Number [facility] [address] [place] [address] * (ABNORMAL) POCT glucose meter (11/07/2024 5:51 [...] 11/07/2024 5:52 PM EDT [facility] Cotton Tier ID Brigitte Castellon 11/07/2024 5:52 PM EDT [facility] Device ID [id number] 11/07/2024 5:52 PM EDT [facility] Specimen Type POC Capillary 11/07/2024 5:52 PM EDT [facility] Blood Capillary blood specimen / Unknown 11/07/2024 5:51 PM EDT 11/07/2024 5:52 PM EDT Nathaly Nowak MD LAB POINT OF CARE TE ST DOCKED DEVICE UNSOLICITED RESULTS Final Result Performing Organization Address [facility] de Phone Number [facility] [address] [place] [address] * (ABNORMAL) POCT glucose meter (11/07/2024 4:47 [...] 11/07/2024 4:48 PM EDT [facility] Cotton Tier ID Estefani Sheth 11/07/2024 4:48 PM EDT [facility] Device ID [id number] 11/07/2024 4:48 PM EDT [facility] Specimen Type POC Capillary 11/07/2024 4:48 PM EDT [facility] Blood Capillary blood specimen / Unknown 11/07/2024 4:47 PM EDT 11/07/2024 4:48 PM EDT Nathaly Nowak MD LAB POINT OF CARE TE ST DOCKED DEVICE UNSOLICITED RESULTS Final Result Performing Organization Address City/[facility] Co de Phone Number [facility] [address] [place] [address] * (ABNORMAL) POCT glucose meter (11/07/2024 12:22 PM EDT) [facility] POCT Glucose 172(H) 74 - 99 mg/dL [...] Comment 11/07/2024 12:24 PM EDT HEALTHCARE LAB Cotton Tier ID Estefani Sheth 11/07/2024 12:24 PM EDT HEALTHCARE LAB Device ID [id number] 11/07/2024 12:24 PM EDT HEALTHCARE LAB Specimen Type POC Capillary 11/07/2024 12:24 PM EDT HEALTHCARE LAB Blood Capillary blood specimen / Unknown 11/07/2024 12:22 PM EDT 11/07/2024 12:24 PM EDT us Nathaly Nowak MD LAB POINT OF CARE TE ST DOCKED DEVICE UNSOLICITED RESULTS Final Result [facility] [address] [place] [address] * (ABNORMAL) CBC and Differential (11/07/2024 11:37 AM EDT) [facility] WBC Count 9.96 3.70 - 10.30 10*3/uL LAB HEMATOLOGY METHOD 11/07/2024 12:33 PM EDT [facility] RBC Count 2.81(L) 4.60 - 6.10 10*6/uL LAB HEMATOLOGY METHOD 11/07/2024 12:33 PM EDT [facility] HGB 8.5(L) 13.7 - 17.5 g/dL LAB HEMATOLOGY METHOD 11/07/2024 12:33 PM EDT [facility] HCT 26.0(L) 40.0 - 51.0 % LAB HEMATOLOGY METHOD 11/07/2024 12:33 PM EDT [facility] Platelet Count 524(H) 155 - 369 10*3/uL LAB HEMATOLOGY METHOD 11/07/2024 12:33 PM EDT [facility] MCV 93 79 - 98 fL LAB HEMATOLOGY METHOD 11/07/2024 12:33 PM EDT [facility] MCH 30.2 26.0 - 32.0 pg LAB HEMATOLOGY METHOD 11/07/2024 12:33 PM EDT [facility] MCHC 32.7 30.7 - 35.5 g/dL LAB HEMATOLOGY METHOD 11/07/2024 12:33 PM EDT [facility] RDW 13.1 11.5 - 14.5 % LAB HEMATOLOGY METHOD 11/07/2024 12:33 PM EDT [facility] MPV 9.0 8.8 - 12.5 fL LAB HEMATOLOGY METHOD 11/07/2024 12:33 PM EDT [facility] nRBC 0.0 <=0.0 per 100 WBCs LAB HEMATOLOGY METHOD 11/07/2024 12:33 PM EDT [facility] Differential Type Automated LAB HEMATOLOGY METHOD 11/07/2024 12:33 PM EDT [facility] Neutrophils % 72 % LAB HEMATOLOGY METHOD 11/07/2024 12:33 PM EDT [facility] Lymphocytes % 17 % LAB HEMATOLOGY METHOD 11/07/2024 12:33 PM EDT [facility] Monocytes % 9 % LAB HEMATOLOGY METHOD 11/07/2024 12:33 PM EDT [facility] Eosinophils % 1 % LAB HEMATOLOGY METHOD 11/07/2024 12:33 PM EDT [facility] Basophils % 1 % LAB HEMATOLOGY METHOD 11/07/2024 12:33 PM EDT [facility] Immature Granulocytes % 0 % LAB HEMATOLOGY METHOD 11/07/2024 12:33 PM EDT [facility] Neutrophils Absolute 7.19(H) 1.60 - 6.10 10*3/uL LAB HEMATOLOGY METHOD 11/07/2024 12:33 PM EDT [facility] Lymphocytes Absolute 1.66 1.20 - 3.90 10*3/uL LAB HEMATOLOGY METHOD 11/07/2024 12:33 PM EDT [facility] Monocytes Absolute 0.88 0.30 - 0.90 10*3/uL LAB HEMATOLOGY METHOD 11/07/2024 12:33 PM EDT [facility] Eosinophils Absolute 0.14 0.00 - 0.50 10*3/uL LAB HEMATOLOGY METHOD 11/07/2024 12:33 PM EDT [facility] Basophils Absolute 0.05 0.00 - 0.10 10*3/uL LAB HEMATOLOGY METHOD 11/07/2024 12:33 PM EDT [facility] Immature Granulocytes Absolute 0.04 0.00 - 0.06 10*3/uL LAB HEMATOLOGY METHOD 11/07/2024 12:33 PM EDT [facility] Blood Venous blood specimen / Unknown Venipuncture / Unknown 11/07/2024 11:37 AM EDT 11/07/2024 12:24 PM EDT Narrative [facility] - 11/07/2024 12:33 PM EDT Therapeutic decision making should be based on absolute values, rather than percentages. us Nathaly Nowak MD LAB BLOOD ORDERABLES Final Resu lt [facility] [address] [place] [address] * (ABNORMAL) Comprehensive Metabolic Panel, Plasma (11/07/2024 11:37 AM EDT) Glucose, Plasma 173(H) 74 - 99 mg/dL 11/07/2024 1:31 PM EDT [facility] BUN, Plasma 13 8 - 23 mg/dL 11/07/2024 1:31 PM EDT [facility] Creatinine, Plasma 0.92 0.70 - 1.20 mg/dL 11/07/2024 1:31 PM EDT [facility] BUN/Creatinine Ratio 11/07/2024 1:31 PM EDT [facility] Sodium, Plasma 136 136 - 145 mmol/L 11/07/2024 1:31 PM EDT [facility] Potassium, Plasma 4.0 3.6 - 4.9 mmol/L 11/07/2024 1:31 PM EDT [facility] Chloride, Plasma 104 97 - 107 mmol/L 11/07/2024 1:31 PM EDT [facility] CO2, Plasma 23 22 - 29 mmol/L 11/07/2024 1:31 PM EDT [facility] Anion Gap 9 6 - 16 mmol/L 11/07/2024 1:31 PM EDT [facility] Total Calcium, Plasma 7.8(L) 8.9 - 10.2 mg/dL 11/07/2024 1:31 PM EDT [facility] Total Protein 5.7(L) 6.3 - 7.9 g/dL 11/07/2024 1:31 PM EDT [facility] Albumin, Plasma 3.0(L) 3.5 - 5.2 g/dL 11/07/2024 1:31 PM EDT [facility] AST, Plasma 15 10 - 50 U/L 11/07/2024 1:31 PM EDT [facility] ALT, Plasma 16 10 - 50 U/L 11/07/2024 1:31 PM EDT [facility] Alkaline Phosphatase, Plasma 119(H) 40 - 115 U/L 11/07/2024 1:31 PM EDT [facility] Total Bilirubin, Plasma <0.2(L) 0.2 - 1.1 mg/dL 11/07/2024 1:31 PM EDT [facility] eGFRcr 92.3 mL/min/1.7 3m*2 11/07/2024 1:31 PM EDT [facility] Comment:Reported eGFRcr in m L/min/1.73m2 is based the CKD-EPI 2020 equation that does not use a race coefficient. Blood Venous blood specimen / Unknown Venipuncture / Unknown 11/07/2024 11:37 AM EDT 11/07/2024 12:23 PM EDT us Nathaly Nowak MD LAB BLOOD ORDERABLES Final Resu lt [facility] [address] [place] [address] * Type and Screen (11/07/2024 11:37 AM [...] ORDERABLES F inal Result Performing Organization Address City/[facility]/ZIP Co de Phone Number BLOOD BANK [address] * (ABNORMAL) POCT glucose meter (11/07/2024 [...] Comment 11/07/2024 10:36 AM EDT HEALTHCARE LAB Cotton Tier ID Joy Iraheta 11/07/2024 10:36 AM EDT HEALTHCARE LAB Device ID [id number] 11/07/2024 10:36 AM EDT HEALTHCARE LAB Specimen Type POC Capillary 11/07/2024 10:36 AM EDT [facility] Blood Capillary blood specimen / Unknown 11/07/2024 10:34 AM EDT 11/07/2024 10:36 AM EDT Nathaly Nowak MD LAB POINT OF CARE TE ST DOCKED DEVICE UNSOLICITED RESULTS Final Result Performing Organization Address City/[facility]/ZIP Co de Phone Number [facility] [address] [place] [address] * (ABNORMAL) POCT glucose meter (11/07/2024 9:34 [...] 11/07/2024 9:36 AM EDT [facility] Cotton Tier ID Brigitte Castellon 11/07/2024 9:36 AM EDT HEALTHCARE LAB Device ID [id number] 11/07/2024 9:36 AM EDT HEALTHCARE LAB Specimen Type POC Capillary 11/07/2024 9:36 AM EDT HEALTHCARE LAB Blood Capillary blood specimen / Unknown 11/07/2024 9:34 AM EDT 11/07/2024 9:36 AM EDT Nathaly Nowak MD LAB POINT OF CARE TE ST DOCKED DEVICE UNSOLICITED RESULTS Final Result [facility]ARE LAB [address] [place] [address] * (ABNORMAL) POCT glucose meter (11/07/2024 8:20 AM EDT) [facility] POCT Glucose 137(H) 74 - 99 mg/dL [...] 11/07/2024 8:22 AM EDT [facility] Cotton Tier ID Estefani Sheth 11/07/2024 8:22 AM EDT [facility] Device ID [id number] 11/07/2024 8:22 AM EDT HEALTHCARE LAB Specimen Type POC Capillary 11/07/2024 8:22 AM EDT HEALTHCARE LAB Blood Capillary blood specimen / Unknown 11/07/2024 8:20 AM EDT 11/07/2024 8:22 AM EDT Nathaly Nowak MD LAB POINT OF CARE TE ST DOCKED DEVICE UNSOLICITED RESULTS Final Result Performing Organization Address City/[facility] Co de Phone Number [facility] [address] [place] [address] * (ABNORMAL) POCT glucose meter (11/07/2024 7:21 [...] for testing. Comment 11/07/2024 7:22 AM EDT [facility] Cotton Tier ID Brigitte Castellon 11/07/2024 7:22 AM EDT [facility] Device ID [id number] 11/07/2024 7:22 AM EDT [facility] Specimen Type POC Capillary 11/07/2024 7:22 AM EDT [facility] Blood Capillary blood specimen / Unknown 11/07/2024 7:21 AM EDT 11/07/2024 7:22 AM EDT Nathaly Nowak MD LAB POINT OF CARE TE ST DOCKED DEVICE UNSOLICITED RESULTS Final Result Performing Organization Address City/[facility] Co de Phone Number HEALTHCARE LAB [address] [place] [address] * (ABNORMAL) POCT glucose meter (11/07/2024 6:25 [...] 11/07/2024 6:27 AM EDT [facility] Cotton Tier ID Nelda Gerber 11/08/19 6:27 AM EDT [facility] Device ID [id number] 11/07/2024 6:27 AM EDT HEALTHCARE LAB Specimen Type POC Capillary 11/07/2024 6:27 AM EDT HEALTHCARE LAB Blood Capillary blood specimen / Unknown 11/07/2024 6:25 AM EDT 11/07/2024 6:27 AM EDT Nathaly Nowak MD LAB POINT OF CARE TE ST DOCKED DEVICE UNSOLICITED RESULTS Final Result Performing Organization Address [facility] de Phone Number HEALTHCARE LAB [address] [place] [address] * (ABNORMAL) POCT glucose meter (11/07/2024 5:03 [...] Comment 11/07/2024 5:08 AM EDT HEALTHCARE LAB Cotton Tier ID Nelda Gerber 11/08/19 5:08 AM EDT HEALTHCARE LAB Device ID [id number] 11/07/2024 5:08 AM EDT HEALTHCARE LAB Specimen Type POC Capillary 11/07/2024 5:08 AM EDT HEALTHCARE LAB Blood Capillary blood specimen / Unknown 11/07/2024 5:03 AM EDT 11/07/2024 5:08 AM EDT Nathaly Nowak MD LAB POINT OF CARE TE ST DOCKED DEVICE UNSOLICITED RESULTS Final Result Performing Organization Address City/[facility] Co de Phone Number HEALTHCARE LAB [address] [place] [address] * (ABNORMAL) POCT glucose meter (11/07/2024 4:16 AM EDT) [facility] POCT Glucose 142(H) 74 - 99 mg/dL [...] Comment 11/07/2024 4:18 AM EDT HEALTHCARE LAB Cotton Tier ID Nelda Gerber 11/08/19 4:18 AM EDT [facility] LAB Device ID [id number] 11/07/2024 4:18 AM EDT HEALTHCARE LAB Specimen Type POC Capillary 11/07/2024 4:18 AM EDT HEALTHCARE LAB Blood Capillary blood specimen / Unknown 11/07/2024 4:16 AM EDT 11/07/2024 4:18 AM EDT Nathaly Nowak MD LAB POINT OF CARE TE ST DOCKED DEVICE UNSOLICITED RESULTS Final Result [facility] [address] [place] [address] * (ABNORMAL) POCT glucose meter (11/07/2024 3:21 AM EDT) [facility] POCT Glucose 141(H) 74 - 99 mg/dL [...] 11/07/2024 3:23 AM EDT [facility] Cotton Tier ID Nelda Gerber 11/08/19 3:23 AM EDT [facility] Device ID [id number] 11/07/2024 3:23 AM EDT HEALTHCARE LAB Specimen Type POC Capillary 11/07/2024 3:23 AM EDT HEALTHCARE LAB Blood Capillary blood specimen / Unknown 11/07/2024 3:21 AM EDT 11/07/2024 3:23 AM EDT Nathaly Nowak MD LAB POINT OF CARE TE ST DOCKED DEVICE UNSOLICITED RESULTS Final Result Performing Organization Address City/[facility] Co de Phone Number [facility]ALTH[facility]ARE LAB [address] [place] [address] * (ABNORMAL) POCT glucose meter (11/07/2024 2:10 [...] Comment 11/07/2024 2:12 AM EDT HEALTHCARE LAB Cotton Tier ID Nelda Gerber 11/08/19 2:12 AM EDT HEALTHCARE LAB Device ID [id number] 11/07/2024 2:12 AM EDT HEALTHCARE LAB Specimen Type POC Capillary 11/07/2024 2:12 AM EDT HEALTHCARE LAB Blood Capillary blood specimen / Unknown 11/07/2024 2:10 AM EDT 11/07/2024 2:12 AM EDT Nathaly Nowak MD LAB POINT OF CARE TE ST DOCKED DEVICE UNSOLICITED RESULTS Final Result Performing Organization Address City/[facility] Co de Phone Number HEALTHCARE LAB [address] [place] [address] * (ABNORMAL) POCT glucose meter (11/07/2024 1:08 [...] Comment 11/07/2024 1:10 AM EDT HEALTHCARE LAB Cotton Tier ID Nelda Gerber 11/08/19 1:10 AM EDT HEALTHCARE LAB Device ID [id number] 11/07/2024 1:10 AM EDT HEALTHCARE LAB Specimen Type POC Capillary 11/07/2024 1:10 AM EDT [facility] Blood Capillary blood specimen / Unknown 11/07/2024 1:08 AM EDT 11/07/2024 1:10 AM EDT Nathaly Nowak MD LAB POINT OF CARE TE ST DOCKED DEVICE UNSOLICITED RESULTS Final Result Performing Organization Address City/State/[facility] Co de Phone Number HEALTHCARE LAB [address] [place] [address] * (ABNORMAL) POCT glucose meter (11/07/2024 12:10 AM EDT) [facility] POCT Glucose 127(H) 74 - 99 mg/dL [...] Comment 11/07/2024 12:13 AM EDT HEALTHCARE LAB Cotton Tier ID Nelda Gerber 11/08/19 12:13 AM EDT HEALTHCARE LAB Device ID [id number] 11/07/2024 12:13 AM EDT HEALTHCARE LAB Specimen Type POC Capillary 11/07/2024 12:13 AM EDT HEALTHCARE LAB Blood Capillary blood specimen / Unknown 11/07/2024 12:10 AM EDT 11/07/2024 12:13 AM EDT Nathaly Nowak MD LAB POINT OF CARE TE ST DOCKED DEVICE UNSOLICITED RESULTS Final Result Performing Organization Address City/[facility] Co de Phone Number HEALTHCARE LAB [address] [place] [address] * (ABNORMAL) POCT glucose meter (11/06/2024 11:14 [...] for testing. Comment 11/06/2024 11:16 PM EDT [facility] Cotton Tier ID Nelda Gerber 11/07/19 11:16 PM EDT [facility] Device ID [id number] 11/06/2024 11:16 PM EDT [facility] Specimen Type POC Capillary 11/06/2024 11:16 PM EDT [facility] Blood Capillary blood specimen / Unknown 11/06/2024 11:14 PM EDT 11/06/2024 11:16 PM EDT Nathaly Nowak MD LAB POINT OF CARE TE ST DOCKED DEVICE UNSOLICITED RESULTS Final Result Performing Organization Address City/[facility] Co de Phone Number [facility] [address] [place] [address] * (ABNORMAL) POCT glucose meter (11/06/2024 10:07 [...] Comment 11/06/2024 10:09 PM EDT HEALTHCARE LAB Cotton Tier ID Nelda Gerber 11/07/19 10:09 PM EDT HEALTHCARE LAB Device ID [id number] 11/06/2024 10:09 PM EDT HEALTHCARE LAB Specimen Type POC Capillary 11/06/2024 10:09 PM EDT HEALTHCARE LAB Blood Capillary blood specimen / Unknown 11/06/2024 10:07 PM EDT 11/06/2024 10:09 PM EDT Nathaly Nowak MD LAB POINT OF CARE TE ST DOCKED DEVICE UNSOLICITED RESULTS Final Result Performing Organization Address City/[facility] Co de Phone Number HEALTHCARE LAB [address] [place] [address] * (ABNORMAL) POCT glucose meter (11/06/2024 8:22 [...] Comment 11/06/2024 8:25 PM EDT HEALTHCARE LAB Cotton Tier ID Nelda Gerber 11/07/19 8:25 PM EDT HEALTHCARE LAB Device ID [id number] 11/06/2024 8:25 PM EDT HEALTHCARE LAB Specimen Type POC Capillary 11/06/2024 8:25 PM EDT HEALTHCARE LAB Blood Capillary blood specimen / Unknown 11/06/2024 8:22 PM EDT 11/06/2024 8:25 PM EDT us Nathaly Nowak MD LAB POINT OF CARE TE ST DOCKED DEVICE UNSOLICITED RESULTS Final Result Performing Organization Address City/[facility]/ZIP Co de Phone Number HEALTHCARE LAB [address] [place] [address] * (ABNORMAL) POCT glucose meter (11/06/2024 7:31 [...] Comment 11/06/2024 7:32 PM EDT HEALTHCARE LAB Cotton Tier ID Nelda Gerber 11/07/19 7:32 PM EDT HEALTHCARE LAB Device ID [id number] 11/06/2024 7:32 PM EDT HEALTHCARE LAB Specimen [...] Number [facility] [address] [place] [address] * (ABNORMAL) POCT glucose meter (11/06/2024 6:15 PM EDT) [facility] POCT Glucose 368(H) 74 - 99 mg/dL [...] Comment 11/06/2024 6:17 PM EDT HEALTHCARE LAB Cotton Tier ID Estefani Sheth 11/06/2024 6:17 PM EDT [facility] Device ID [id number] 11/06/2024 6:17 PM EDT HEALTHCARE LAB Specimen Type POC Capillary 11/06/2024 6:17 PM EDT HEALTHCARE LAB Blood Capillary blood specimen / Unknown 11/06/2024 6:15 PM EDT 11/06/2024 6:17 PM EDT Nathaly Nowak MD LAB POINT OF CARE TE ST DOCKED DEVICE UNSOLICITED RESULTS Final Result Performing Organization Address City/[facility]/ZIP Co de Phone Number HEALTHCARE LAB [address] [place] [address] * (ABNORMAL) POCT glucose meter (11/06/2024 4:57 [...] Comment 11/06/2024 4:58 PM EDT HEALTHCARE LAB Cotton Tier ID Estefani Sheth 11/06/2024 4:58 PM EDT HEALTHCARE LAB Device ID [id number] 11/06/2024 4:58 PM EDT [facility] Specimen Type POC Capillary 11/06/2024 4:58 PM EDT [facility] Blood Capillary blood specimen / Unknown 11/06/2024 4:57 PM EDT 11/06/2024 4:58 PM EDT us Nathaly Nowak MD LAB POINT OF CARE TE ST DOCKED DEVICE UNSOLICITED RESULTS Final Result Performing Organization Address City/[facility]/ZIP Co de Phone Number HEALTHCARE LAB [address] [place] [address] * (ABNORMAL) POCT glucose meter (11/06/2024 2:08 [...] Comment 11/06/2024 2:09 PM EDT HEALTHCARE LAB Cotton Tier ID Brigitte Castellon 11/06/2024 2:09 PM EDT HEALTHCARE LAB Device ID [id number] 11/06/2024 2:09 PM EDT HEALTHCARE LAB Specimen Type POC Capillary 11/06/2024 2:09 PM EDT HEALTHCARE LAB Blood Capillary blood specimen / Unknown 11/06/2024 2:08 PM EDT 11/06/2024 2:09 PM EDT us Nathaly Nowak MD LAB POINT OF CARE TE ST DOCKED DEVICE UNSOLICITED RESULTS Final Result Performing Organization Address City/State/[facility] Co de Phone Number HEALTHCARE LAB [address] [place] [address] * (ABNORMAL) POCT glucose meter (11/06/2024 12:27 [...] Comment 11/06/2024 12:28 PM EDT HEALTHCARE LAB Cotton Tier ID Jacinta Galloway 11/06/2024 12:28 PM EDT HEALTHCARE LAB Device ID [id number] 11/06/2024 12:28 PM EDT HEALTHCARE LAB Specimen Type POC Capillary 11/06/2024 12:28 PM EDT HEALTHCARE LAB Blood Capillary blood specimen / Unknown 11/06/2024 12:27 PM EDT 11/06/2024 12:28 PM EDT us Nathaly Nowak MD LAB POINT OF CARE TE ST DOCKED DEVICE UNSOLICITED RESULTS Final Result [facility] [address] [place] [address] * (ABNORMAL) Tissue Culture and Gram Stain (11/06/2024 11:34 AM EDT) Culture Moderate Growth 7:35 AM EDT [facility] Culture 2+ Enterobacter cloacae complex(A) ANGÉLICA 11/15/2024 7:35 AM EDT [facility] Comment: This isolate has been identified using the FDA Approved [employer] System The organism value for this result has been updated. These results have been appended to the previously preliminary verified report. Edited result: Previously reported as Gram Negative Jesus on 11/07/2024 at 1434 EDT. Culture 2+ Streptococcus mitis/oralis group(A) ANGÉLICA 11/15/2024 7:35 AM EDT [facility] Comment: This isolate has been identified using the FDA Approved [employer] System The organism value for this result has been updated. These results have been appended to the previously preliminary verified report. Culture 2+ Pasteurella stomatis(A) ANGÉLICA 11/15/2024 7:35 AM EDT [facility] Comment: This result was determined by [employer] tof mass spectrometry using the [employer] database and is for research use only. The organism value for this result has been updated. These results have been appended to the previously preliminary verified report. Gram Stain Result Few Gram negative rods(A) 11/15/2024 7:35 AM EDT [facility] Gram Stain Result Moderate Polymorphonuclear leukocytes(A) 11/15/2024 7:35 AM EDT [facility] Gram Stain Result Few Gram positive cocci in pairs(A) 11/15/2024 7:35 AM EDT [facility] Tissue Topography unknown / Unknown 11/06/2024 11:34 AM EDT 11/06/2024 12:18 PM EDT Comment:Pre-op diagnosis: Surgical wound infection [T81.49XA] Narrative [facility] - 11/15/2024 7:35 AM [...] 4/4 ug/ml: Susceptible Enterobacter cloacae complex Tetracycline NAGÉLICA <=2 ug/ml: Susceptible Enterobacter cloacae complex Tobramycin [...] GENERAL ORDE LAM Edited Result - Final [facility] [address] [place] [address] * (ABNORMAL) Anaerobic Culture (11/06/2024 11:34 AM EDT) Culture No anaerobes isolated 11/14/2024 1:25 PM EDT [facility] Culture Staphylococcus pseudintermedius( A) 11/14/2024 1:25 PM EDT [facility] Comment: This result was determined by [employer] tof mass spectrometry using the [employer] database and is for research use only. This is an appended report. These results have been appended to a previously final verified report. Tissue Topography unknown / Unknown 11/06/2024 11:34 AM EDT 11/06/2024 12:18 PM EDT Comment:Pre-op diagnosis: Surgical wound infection [T81.49XA] Narrative [facility] - 11/14/2024 1:25 PM [...] Edited Result - Final Performing Organization Address [facility] Co de Phone Number [facility] [address] [place] [address] * (ABNORMAL) Routine Culture and Gram Stain (11/06/2024 11:29 AM EDT) Culture Moderate Growth 5:29 PM EDT [facility] Culture Enterobacter cloacae complex(A) 11/08/2024 5:29 PM EDT [facility] Comment: This isolate has been identified using the FDA Approved [employer] System For susceptibility results refer to: - [id number] The organism value for this result has been updated. These results have been appended to the previously preliminary verified report. Gram Stain Result No polymorphonuclear leukocytes seen 11/08/2024 5:29 PM EDT [facility] Gram Stain Result No organisms seen 11/08/2024 5:29 PM EDT [facility] Swab Topography unknown / Unknown 11/06/2024 11:29 AM EDT 11/06/2024 12:19 PM EDT Comment:Pre-op diagnosis: Surgical wound infection [T81.49XA] Nathaly Nowak MD LAB MICROBIOLOGY - GENERAL ATIYA FRITZ Final Result Performing Organization Address [facility] Co de Phone Number [facility] [address] [place] [address] * Fungal Culture, Routine (11/06/2024 11:29 AM EDT) Culture No Fungal Growth at 1 Week 11/13/2024 8:29 AM EDT [facility] Swab Topography unknown / Unknown 11/06/2024 11:29 AM EDT 11/06/2024 12:19 PM EDT Comment:Pre-op diagnosis: Surgical wound infection [T81.49XA] Nathaly Nowak MD [facility] Final Result [facility] [address] [place] [address] * (ABNORMAL) Anaerobic Culture (11/06/2024 11:29 AM EDT) Culture No anaerobes isolated 11/14/2024 1:25 PM EDT [facility] Culture Streptococcus mitis/oralis group(A) 11/14/2024 1:25 PM EDT [facility] Comment: This result was determined by [employer] tof mass spectrometry using the [employer] database and is for research use only. The organism value for this result has been updated. These results have been appended to the previously preliminary verified report. This is a corrected result. Previous organism was Mixed skin clifton on 11/10/2024 at 0718 EDT. Culture Staphylococcus pseudintermedius( A) 11/14/2024 1:25 PM EDT [facility] Comment: This isolate has been identified using the FDA Approved [employer] System This is an appended report. These results have been appended to a previously final verified report. Swab Topography unknown / Unknown 11/06/2024 11:29 AM EDT 11/06/2024 12:19 PM EDT Comment:Pre-op diagnosis: Surgical wound infection [T81.49XA] Narrative [facility] - 11/14/2024 1:25 PM [...] Edited Result - Final Performing Organization Address [facility] Co de Phone Number [facility] [address] [place] [address] * Routine Culture and Gram Stain (11/06/2024 11:28 AM EDT) Culture No growth at day 4 2024 11:24 AM EDT [facility] Gram Stain Result No organisms seen 11/10/2024 11:24 AM EDT [facility] Gram Stain Result No polymorphonuclear leukocytes seen 11/10/2024 11:24 AM EDT [facility] Swab Topography unknown / Unknown 11/06/2024 11:28 AM EDT 11/06/2024 12:20 PM EDT Comment:Pre-op diagnosis: Surgical wound infection [T81.49XA] Nathaly Nowak MD LAB MICROBIOLOGY - GENERAL ORDE LAM Final Result Performing Organization Address [facility] Co de Phone Number [facility] [address] [place] [address] * Fungal Culture, Routine (11/06/2024 11:28 AM EDT) Culture No Fungal Growth at 1 Week 11/13/2024 8:29 AM EDT [facility] Swab Topography unknown / Unknown 11/06/2024 11:28 AM EDT 11/06/2024 12:20 PM EDT Comment:Pre-op diagnosis: Surgical wound infection [T81.49XA] Nathaly Nowak MD LAB MICROBIOLOGY - GENERAL ORDE LAM Final Result Performing Organization Address [facility] Co de Phone Number [facility] [address] [place] [address] * Anaerobic Culture (11/06/2024 11:28 AM EDT) Culture No growth at day 4 11/13/2024 12:53 PM EDT [facility] Swab Topography unknown / Unknown 11/06/2024 11:28 AM EDT 11/06/2024 12:20 PM EDT Comment:Pre-op diagnosis: Surgical wound infection [T81.49XA] Nathaly Nowak MD LAB MICROBIOLOGY - [facility] LAM Final Result Performing Organization Address [facility] de Phone Number [facility] [address] [place] [address] * (ABNORMAL) POCT glucose meter (11/06/2024 10:16 [...] 11/06/2024 10:18 AM EDT [facility] Cotton Tier ID Lacy Griffin 11/07/19 10:18 AM EDT [facility]ALTHCARE [facility] Device ID [id number] 11/06/2024 10:18 AM EDT [facility] Specimen Type POC Capillary 11/06/2024 10:18 AM EDT [facility] Blood Capillary blood specimen / Unknown 11/06/2024 10:16 AM EDT 11/06/2024 10:18 AM EDT Nathaly Nowak MD LAB POINT OF CARE TE ST DOCKED DEVICE UNSOLICITED RESULTS Final Result Performing Organization Address [facility] de Phone Number [facility] [address] [place] [address] * (ABNORMAL) POCT glucose meter (11/06/2024 5:58 [...] for testing. Comment 11/06/2024 6:01 AM EDT [facility] Cotton Tier ID Raj Laird 11/07/19 6:01 AM EDT [facility] Device ID [id number] 11/06/2024 6:01 AM EDT [facility] Specimen Type POC Capillary 11/06/2024 6:01 AM EDT [facility] Blood Capillary blood specimen / Unknown 11/06/2024 5:58 AM EDT 11/06/2024 6:01 AM EDT Nathaly Nowak MD LAB POINT OF CARE TE ST DOCKED DEVICE UNSOLICITED RESULTS Final Result Performing Organization Address City/[facility] Co de Phone Number [facility] [address] [place] [address] * (ABNORMAL) POCT glucose meter (11/06/2024 5:36 [...] Comment 11/06/2024 5:38 AM EDT [facility] Cotton Tier ID Shahid Sanches 11/06/2024 5:38 AM EDT [facility]ALTH[facility]ARE [facility] Device ID [id number] 11/06/2024 5:38 AM EDT [facility] Specimen Type POC Capillary 11/06/2024 5:38 AM EDT [facility] Blood Capillary blood specimen / Unknown 11/06/2024 5:36 AM EDT 11/06/2024 5:38 AM EDT us Nathaly Nowak MD LAB POINT OF CARE TE ST DOCKED DEVICE UNSOLICITED RESULTS Final Result Performing Organization Address [facility] Co de Phone Number [facility] [address] [place] [address] * (ABNORMAL) Hemoglobin A1c (11/06/2024 1:07 AM EDT) Hemoglobin A1c 7.6(H) <5.7 % 11/06/2024 11:09 AM EDT [facility] Blood Venous blood specimen / Unknown Venipuncture / Unknown 11/06/2024 1:07 AM EDT 11/06/2024 1:26 AM EDT Narrative [facility] - 11/06/2024 11:09 AM EDT HA1C Interpretive Data: Diagnosis of Diabetes: Diabetic > or = 6.5% Pre-diabetic 5.7 to 6.4% Non-diabetic < or = 5.6% Glycemic Targets for Type I and Type II Diabetics: Non- Adults <7.0% Adults <6.0% Children and Adolescents <7.5% Source: [place] [employer]. Standards of medical care in diabetes,2017. Diabetes Care.2017:40 (suppl 1):S1-S135. us Nathaly Nowak MD LAB BLOOD ORDERABLES Final Resu lt Performing Organization Address City/[facility]/ZIP Co de Phone Number [facility] [address] [place] [address] * Blood Culture (Aerobic/Anaerobet Set) (11/06/2024 1:07 AM EDT) Culture No growth at day 5 11/11/2024 2:49 AM EDT [facility] Blood Structure of right hand / Unknown Venipuncture / Unknown 11/06/2024 1:07 AM EDT 11/06/2024 2:36 AM EDT Nathaly Nowak MD LAB MICROBIOLOGY - GENERAL ORDE RABONEIDA Final Result Performing Organization Address [facility] Co de Phone Number [facility] [address] [place] [address] * Blood Culture (Aerobic/Anaerobet Set) (11/06/2024 1:07 AM EDT) Culture No growth at day 5 11/11/2024 3:01 AM EDT [facility] Blood Structure of antecubital vein / Unknown Venipuncture / Unknown 11/06/2024 1:07 AM EDT 11/06/2024 2:36 AM EDT Nathaly Nowak MD LAB MICROBIOLOGY - GENERAL ORDE LAM Final Result Performing Organization Address City/[facility] Co de Phone Number [facility] [address] [place] [address] * (ABNORMAL) Basic metabolic panel (11/06/2024 1:07 AM EDT) Glucose, Plasma 207(H) 74 - 99 mg/dL 11/06/2024 1:41 AM EDT [facility] BUN, Plasma 20 8 - 23 mg/dL 11/06/2024 1:41 AM EDT [facility] Creatinine, Plasma 0.92 0.70 - 1.20 mg/dL 11/06/2024 1:41 AM EDT [facility] BUN/Creatinine Ratio 22 11/06/2024 1:41 AM EDT [facility] Sodium, Plasma 136 136 - 145 mmol/L 11/06/2024 1:41 AM EDT [facility] Potassium, Plasma 4.5 3.6 - 4.9 mmol/L 11/06/2024 1:41 AM EDT [facility] Chloride, Plasma 104 97 - 107 mmol/L 11/06/2024 1:41 AM EDT [facility] CO2, Plasma 22 22 - 29 mmol/L 11/06/2024 1:41 AM EDT [facility] Anion Gap 10 6 - 16 mmol/L 11/06/2024 1:41 AM EDT [facility] Total Calcium, Plasma 9.0 8.9 - 10.2 mg/dL 11/06/2024 1:41 AM EDT [facility] eGFRcr 92.3 mL/min/1.7 3m*2 11/06/2024 1:41 AM EDT [facility] Comment:Reported eGFRcr in m L/min/1.73m2 is based the CKD-EPI 2020 equation that does not use a race coefficient. Blood Venous blood specimen / Unknown Venipuncture / Unknown 11/06/2024 1:07 AM EDT 11/06/2024 1:12 AM EDT us Nathaly Nowak MD LAB BLOOD ORDERABLES Final Resu lt [facility] [address] [place] [address] * Phosphorus (11/06/2024 1:07 AM EDT) Phosphorus, Plasma 3.2 2.5 - 4.5 mg/dL 11/06/2024 1:41 AM EDT [facility] Blood Venous blood specimen / Unknown Venipuncture / Unknown 11/06/2024 1:07 AM EDT 11/06/2024 1:12 AM EDT us aNthaly Nowak MD LAB BLOOD ORDERABLES Final Resu lt [facility] [address] [place] [address] * Magnesium (11/06/2024 1:07 AM EDT) Magnesium, Plasma 2.2 1.9 - 2.4 mg/dL 11/06/2024 1:41 AM EDT [facility] Blood Venous blood specimen / Unknown Venipuncture / Unknown 11/06/2024 1:07 AM EDT 11/06/2024 1:12 AM EDT us Nathaly Nowak MD LAB BLOOD ORDERABLES Final Resu lt [facility] [address] [place] [address] * (ABNORMAL) CBC (11/06/2024 1:07 AM EDT) WBC Count 9.70 3.70 - 10.30 10*3/uL LAB HEMATOLOGY METHOD 11/06/2024 1:19 AM EDT [facility] RBC Count 2.89(L) 4.60 - 6.10 10*6/uL LAB HEMATOLOGY METHOD 11/06/2024 1:19 AM EDT [facility] HGB 8.8(L) 13.7 - 17.5 g/dL LAB HEMATOLOGY METHOD 11/06/2024 1:19 AM EDT [facility] HCT 26.2(L) 40.0 - 51.0 % LAB HEMATOLOGY METHOD 11/06/2024 1:19 AM EDT [facility] Platelet Count 542(H) 155 - 369 10*3/uL LAB HEMATOLOGY METHOD 11/06/2024 1:19 AM EDT [facility] MCV 91 79 - 98 fL LAB HEMATOLOGY METHOD 11/06/2024 1:19 AM EDT [facility] MCH 30.4 26.0 - 32.0 pg LAB HEMATOLOGY METHOD 11/06/2024 1:19 AM EDT [facility] MCHC 33.6 30.7 - 35.5 g/dL LAB HEMATOLOGY METHOD 11/06/2024 1:19 AM EDT [facility] RDW 13.2 11.5 - 14.5 % LAB HEMATOLOGY METHOD 11/06/2024 1:19 AM EDT [facility] MPV 8.7(L) 8.8 - 12.5 fL LAB HEMATOLOGY METHOD 11/06/2024 1:19 AM EDT [facility] nRBC 0.0 <=0.0 per 100 WBCs LAB HEMATOLOGY METHOD 11/06/2024 1:19 AM EDT [facility] Blood Venous blood specimen / Unknown Venipuncture / Unknown 11/06/2024 1:07 AM EDT 11/06/2024 1:12 AM EDT us Nathaly Nowak MD LAB BLOOD ORDERABLES Final Resu lt Performing Organization Address City/[facility]/ZIP Co de Phone Number [facility] [address] [place] [address] * Gold Top (11/06/2024 12:58 AM EDT) Extra Hold for add-ons 11/06/2024 3:21 AM EDT [facility] Comment:Auto resulted. Blood Venous blood specimen / Unknown 11/06/2024 12:58 AM EDT 11/06/2024 1:13 AM EDT us Nathaly Nowak MD LAB BLOOD ORDERABLES Final Resu lt Performing Organization Address [facility]/ZIP Co de Phone Number [facility] [address] [place] [address] * Gold Top (11/06/2024 12:58 AM EDT) Extra Hold for add-ons 11/06/2024 3:21 AM EDT [facility] Comment:Auto resulted. Blood Venous blood specimen / Unknown 11/06/2024 12:58 AM EDT 11/06/2024 1:13 AM EDT us Nathaly Nowak MD LAB BLOOD ORDERABLES Final Resu lt Performing Organization Address City/[facility] Co de Phone Number [facility] [address] [place] [address] * Light Green Top (11/06/2024 12:58 AM EDT) Extra Hold for add-ons 11/06/2024 3:21 AM EDT [facility] Comment:Auto resulted. Blood Venous blood specimen / Unknown 11/06/2024 12:58 AM EDT 11/06/2024 1:13 AM EDT us Nathaly Nowak MD LAB BLOOD ORDERABLES Final Resu lt Performing Organization Address [facility]/ZIP Co de Phone Number [facility] [address] [place] [address] * Light Blue Top (11/06/2024 12:58 AM EDT) Extra Hold for add-ons 11/06/2024 3:21 AM EDT [facility] Comment:Auto resulted. Blood Venous blood specimen / Unknown 11/06/2024 12:58 AM EDT 11/06/2024 1:13 AM EDT us Nathaly Nowak MD LAB BLOOD ORDERABLES Final Resu lt Performing Organization Address [facility] Co de Phone Number [facility] [address] [place] [address] * Light Blue Top (11/06/2024 12:58 AM EDT) Extra Hold for add-ons 11/06/2024 3:21 AM EDT [facility] Comment:Auto resulted. Blood Venous blood specimen / Unknown 11/06/2024 12:58 AM EDT 11/06/2024 1:13 AM EDT Result [facility] Nathaly Nowak MD LAB BLOOD ORDERABLES Final Resu lt Performing Organization Address [facility] de Phone Number [facility] [address] [place] [address] * (ABNORMAL) POCT glucose meter (11/06/2024 12:45 AM EDT) POCT Glucose 204(H) 74 - 99 mg/dL 11/06/2024 12:48 AM EDT [facility] Comment:Accuracy of a glucos e [...] Comment 11/06/2024 12:48 AM EDT [facility] Cotton Tier ID Raj Laird 11/07/19 12:48 AM EDT [facility]ALTH[facility]ARE LAB Device ID [id number] 11/06/2024 12:48 AM EDT [facility] Specimen Type POC Capillary 11/06/2024 12:48 AM EDT [facility] Blood Capillary blood specimen / Unknown 11/06/2024 12:45 AM EDT 11/06/2024 12:48 AM EDT us Nathaly Nowak MD LAB POINT OF CARE TE ST DOCKED DEVICE UNSOLICITED RESULTS Final Result [facility] [address] [place] [phone] documented in this encounter Visit Diagnoses Diagnosis [...] needed, Starting on Mon11/06/24 at 0031, Until [facility] 11/14/24 at 1804, Routine, line care [...] on Mon11/06/24 at 0753, Until [facility] 11/14/24 at 1804, Routine, On Unit [...] documented as of this encounter Care Teams Artist Relationship Manager Relationship Specialty Start Date End Date Asad Victor MD [address] [place] [address] PCP - General 10/07/22 documented as of this encounter
--- OUTSIDE RECORDS SUMMARY | 2024-11-06 10:47 | XMS_ITS | Encounter Summary ---
Author Organization Healthcare Address [address] [place] [address] Care Team Providers Care Cuff Setter Overlock Name Role Phone Asad Victor MD Primary Care Provider + [phone] Reason for Visit * Auth/Cert (Routine) Specialty Diagnoses / Procedures Referred By Contac t Referred To Contact Diagnoses Wound infection Post-op Vasc Sx wounds - sx on 10/17 at Nathaly Nowak MD [address] [facility] [address] [place] [address] Phone: tel: fax: [facility] Emergency Department [address] [place] [address] Phone: tel: Referral ID Status Reason Start Date Expiration Date Visits Re quested Visits Authorized [id number] 1 1 Encounter Details Date Type Department Care Team (Late st Contact Info) Description 11/06/2024 10:47 AM EDT Anesthesia Event [facility] OPERATING ROOM [address] [place] [address] Bill Sue MD [address] [place] [address] Sabrina Mckeon PA [address] [facility] [address] [place] [address] Anesthesia Record Procedure Summary Procedure [...] Surg; Groin; Left 10/17/24 0856 by Donna Mcmillan RN Wound 10/17/24; 0900; Yes; Surgical; Open [...] any time in the past 12 m [facility], were you homeless or living in [...] drink first t dino in the morning (EYE-PRINCIPAL DEVELOPER) to steady your nerves or to [...] Miscellaneous Notes * Anesthesia Postprocedure Evaluation - Asad Lechuga CRNA, DNP - 11/06/2024 12:11 PM [...] and Staff Patient location during procedure: OR EMPLOYEE RELATIONS SPECIALIST: Asad Lechuga CRNA, DNP Performed: EMPLOYEE RELATIONS SPECIALIST Patient Condition Indications for airway management: [...] placement (Left) Location: [facility] OR 16 / [place] OR Surgeons: Nathaly Nowak MD [facility] Mono Ana Bobby is a 64 y.o. [...] Abnormal Ventricular Rate 85 Atrial Rate 85 MA Interval 146 QRSD Interval 128 QT Interval 390 QTC Interval 464 P [place] 52 R [place] 263 T Wave [place] 57 Diagnosis Atrial-sensed ventricular-paced rhythm Diagnosis Biventricular [...] is no recent study available for direct srpr-ap-fpch comparison. [facility]: Pre-operative CIED Report Assessment and Sara- Procedural Reommendations: Name: Mono Bobby Date: 10/17/2024 : 1960 Age: 64 y.o. Patient has a Fibrous Plasterer: Berger GENETIC COUNSELLOR-PM Remaining battery longevity adequate. Lead integrity test [...] RVR s/p CABG), CAD (CAD s/p multiple HI's and 3V CABG02/2019, 2 stents prior to CABG), carotid artery disease (carotid artery disease s/p R CEA 2016), dysrhythmias (3rd degree AV block GENETIC COUNSELLOR-P placed 08/2023 for Wenkeback with 11 sec pause), hyperlipidemia, pacemaker and PVD. Does not have angina, CHF, murmur, orthopnea, syncope or valvular heart disease. hypertension: Cardio additional comments: Follows with OSH Card last seen 09/25/24 ([place]) . Respiratory: home oxygen (2L). no asthma: [...] ENDARTERECTOMY N/A 2017 Endarterectomy Carotid Artery from [employer] CORONARY ANGIOPLASTY Left Coronary Angiography With Concomitant Left Heart Catheterization from [employer] CORONARY ARTERY BYPASS GRAFT N/A 2018 3V ELBOW SURGERY Right ENDARTERECTOMY Left 10/17/2024 common/SFA/Profunda thromboendarterectomy, EIA/HOUSEKEEPER CLEANING COOKING stent HERNIA REPAIR KNEE ARTHROSCOPY Left VASCULAR SURGERY Left 09/21/2024 HOUSEKEEPER CLEANING COOKING pseudoaneurym injection [5] Social History Tobacco Use [...] Description 11/26/2024 2:00 PM EDT Hospital Encounter [facility] Vascular Lab [address] [place] [address] 11/26/2024 2:30 PM EDT Hospital Encounter [facility] Lab [address] [place] [address] 11/26/2024 3:20 PM EDT Office Visit [facility] [address] [place] [address] Elisabet Schuster PA [address] [facility] [address] [place] [address] 11/29/2024 2:30 PM EDT Office Visit [place] [place] [address] Oscar Appiah MD [address] [facility] [address] [place] [address] documented as of this encounter Goals Goal Patient Goal Type Associated Problems Recent Progress Patient-Stated? Author Autogenera louise Goal Care Plan Autogenerated Problem No Ekta Arnett documented as of this encounter Procedures Procedure Name Priority Date/Time Associated Diagnosis Comments PB ANESTHESIA PLACEHOLDER Routine 11/06/2024 10:58 AM EDT MA AN ELECTIVE ENDOTRACHEAL AIRWAY Routine 11/06/2024 10:58 AM EDT documented in this encounter Results * MA AN ELECTIVE ENDOTRACHEAL AIRWAY, PB ANESTHESIA PLACEHOLDER (11/06/2024 10:58 AM EDT) Narrative Asad Lechuga CRNA, DNP - 11/06/2024 10:58 AM EDT Asad Lechuga CRNA, DNP 11/06/2024 11:05 AM Airway Date/Time: 11/06/2024 10:58 AM Reason: elective Airway not difficult General Information and Staff Patient location during procedure: OR EMPLOYEE RELATIONS SPECIALIST: Asad Lechuga CRNA, DNP Performed: ISH Patient [...] documented as of this encounter Care Teams Cuff Setter Overlock Relationship Specialty Start Date End Date Asad Victor MD [address] [place] [address] PCP - General 10/07/22 documented as of this encounter
--- OUTSIDE RECORDS SUMMARY | 2024-11-18 13:10 | XMS_ITS | Encounter Summary ---
Author Organization [employer] ([place], [place], [place], [place]) Address [address] [place] [phone] Care Team Providers Care Paint Coating Machine Operator Name Role Phone Unavailable Primary Care Provider Unavailabl e Reason for Visit * Reason Comments Wound Care Encounter Details Date Type Department Care Team (Late st Contact Info) Description 11/18/2024 1:10 PM EDT Office Visit [facility] 1 [place] [address] Jerry Monroe Jr., MD [address] [place] [phone] Non-pressure chronic ulcer of skin of [...] health nurse( if you have home health) [facility] for an appointment. documented in this [...] Granulation;Sloughing Sara-Wound Assessment Scarred Wound Length (cm) 7 cm [...] RN - 11/18/2024 1:10 PM EDT 11/18/24 171 Negative Pressure Wound Therapy Leg Left Placement Date/Time: 11/18/24 171 Location: Leg Wound Location Orientation: Left Unit [...] upper leg. Patient was admitted to the [facility] on November 05, 2024 and dischargedon November [...] line. Patient is getting daily infusions at [facility] through his PICC line for [...] provider verified the correct patient, procedure, equipment, support services rep, and site/side marked as required. Debridement Details [...] provider verified the correct patient, procedure, equipment, support services rep, and site/side marked as required. Debridement Details [...] Care Team (Late st Contact Info) Description 11/27/2024 2:20 PM EDT Office Visit [facility] [address] [place] [address] Jerry Monroe Jr., MD [address] [place] [phone] 11/29/2024 4:00 PM EDT Clinical Support [facility] Wound Care [address] [address] 12/02/2024 2:15 PM EDT Clinical Support [facility] Care [address] [address] 12/04/2024 3:10 PM EDT Office Visit [address] [phone] Jrery Monroe Jr., MD [address] [place] [address] 12/06/2024 4:15 PM EDT Clinical Support [facility] Care [address] [address] 12/09/2024 3:30 PM EDT Clinical Support [facility] Care [address] [address] 12/11/2024 2:40 PM EDT Office Visit [facility] Care [address] [address] Jerry Monroe Jr., MD [address] [place] [phone] 12/13/2024 3:30 PM EDT Clinical Support [facility] 1 [place] [address] 12/16/2024 3:30 PM EDT Clinical Support [facility] [address] [place] [address] 12/18/2024 3:00 PM EDT Office Visit [facility] [address] [place] [address] Jerry Monroe Jr., MD [address] [place] [address] 12/20/2024 3:30 PM EDT Clinical Support [facility] [address] [place] [address] documented as of this encounter Procedures Procedure Name Priority Date/Time Associated Diagnosis Comments [place] DEBRIDEMENT MUSCLE &/FASCIA EA ADDL 20 SQ CM Routine 11/18/2024 1:10 PM EDT 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) Localized tissue (HCC) Other specified local infections of the skin and subcutaneous tissue [place] DEBRIDEMENT MUSCLE &/FASCIA EA ADDL 20 SQ CM Routine 11/18/2024 1:10 PM EDT 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) Localized tissue (HCC) Other specified local infections of the skin and subcutaneous tissue [place] DEBRIDEMENT MUSCLE &/FASCIA 1ST 20 SQ CM/< Routine 11/18/2024 1:10 PM EDT 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) Localized tissue (HCC) Other specified local infections of the skin and subcutaneous tissue [place] DEBRIDEMENT MUSCLE &/FASCIA EA ADDL 20 SQ CM Routine 11/18/2024 1:10 PM EDT 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) Localized tissue (HCC) Other specified local infections of the skin and subcutaneous tissue [place] DEBRIDEMENT MUSCLE &/FASCIA EA ADDL 20 SQ CM Routine 11/18/2024 1:10 PM EDT 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) Localized tissue (HCC) Other specified local infections of the skin and subcutaneous tissue [place] DEBRIDEMENT MUSCLE &/FASCIA 1ST 20 SQ CM/< Routine 11/18/2024 1:10 PM EDT 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 Debridement Details [...] MD PROCEDURE/MINOR SURGICAL ORDERABLES Final Result * [place] DEBRIDEMENT MUSCLE &/FASCIA 1ST 20 SQ CM/<, [place] DEBRIDEMENT MUSCLE &/FASCIA EA ADDL 20SQ CM, [place] DEBRIDEMENT MUSCLE &/FASCIA EA ADDL 20 SQ [...] provider verified the correct patient, procedure, equipment, support services rep, and site/side marked as required. Debridement Details [...] treatment: procedure was tolerated well us Jerry Arnold Jr., MD PROCEDURE/MINOR SURGICAL ORDERABLES Final Result [...]
--- OUTSIDE RECORDS SUMMARY | 2024-11-20 14:15 | XMS_ITS | Encounter Summary ---
Author Organization [employer] ([place], [place], [place], [place]) Address [address] [place] [address] Care Team Providers Care Pillowcase Cutter Name Role Phone Unavailable Primary Care Provider Unavailabl e Reason for Visit * Reason Comments Wound Care Nurse visit for woun d vac change, wound care and dressing change Encounter Details Date Type Department Care Team (Late st Contact Info) Description 11/20/2024 2:15 PM EDT Clinical Support [facility] 1 [place] [address] Jerry Monroe Jr., MD [address] [place] [address] Non-pressure chronic ulcer of skin of [...] Description 11/27/2024 2:20 PM EDT Office Visit [facility] [place] 1 [place] [address] Jerry Monroe Jr., MD [address] [place] [address] 11/29/2024 4:00 PM EDT Clinical Support [facility] 1 [place] [address] 12/02/2024 2:15 PM EDT Clinical Support [facility] 1 [place] [address] 12/04/2024 3:10 PM EDT Office Visit [facility] 1 [place] [address] Jerry Monroe Jr., MD [address] [place] [address] 12/06/2024 4:15 PM EDT Clinical Support [facility] 1 [place] [address] 12/09/2024 3:30 PM EDT Clinical Support [facility] 1 [place] [address] 12/11/2024 2:40 PM EDT Office Visit [facility] 1 [place] [address] Jerry Monroe Jr., MD [address] [place] [address] 12/13/2024 3:30 PM EDT Clinical Support [facility] 1 [place] [address] 12/16/2024 3:30 PM EDT Clinical Support [facility] Care [place] 1 [place] [address] 12/18/2024 3:00 PM EDT Office Visit [facility] 1 [place] [address] Jerry Monroe Jr., MD [address] [place] [address] 12/20/2024 3:30 PM EDT Clinical Support [facility] 1 [place] [address] documented as of this encounter Results * Wound Treatment (11/22/2024 5:14 PM EDT) us Jerry Monroe Jr., MD NURSING PATHWAYS ORDERABL ES Final Result documented in this encounter Visit Diagnoses Diagnosis 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
--- OUTSIDE RECORDS SUMMARY | 2024-11-22 16:15 | XMS_ITS | Encounter Summary ---
Author Organization [employer] ([place], [place], [place], [place]) Address [address] [place] [address] Care Team Providers Care Curtain Cutter Name Role Phone Unavailable Primary Care Provider Unavailabl e Reason for Visit * Reason Comments Wound Care Encounter Details Date Type Department Care Team (Late st Contact Info) Description 11/22/2024 4:15 PM EDT Clinical Support [facility] 1 [place] [address] Jerry Monroe Jr., MD [address] [place] [address] Non-pressure chronic ulcer of skin of [...] 11/27/2024 2:20 PM EDT Office Visit [facility] [place] 1 [place] [address] Jerry Monroe Jr., MD [address] [place] [address] 11/29/2024 4:00 PM EDT Clinical Support [facility] 1 [place] [address] 12/02/2024 2:15 PM EDT Clinical Support [facility] [place] 1 [place] [address] 12/04/2024 3:10 PM EDT Office Visit [facility] [place] 1 [place] [address] Jerry Monroe Jr., MD [address] [place] [address] 12/06/2024 4:15 PM EDT Clinical Support [facility] [place] 1 [place] [address] 12/09/2024 3:30 PM EDT Clinical Support [facility] 1 [place] [address] 12/11/2024 2:40 PM EDT Office Visit [facility] 1 [place] [address] Jerry Monroe Jr., MD [address] [place] [address] 12/13/2024 3:30 PM EDT Clinical Support [address] [address] 12/16/2024 3:30 PM EDT Clinical Support [address] [address] 12/18/2024 3:00 PM EDT Office Visit [address] [address] Jerry Monroe Jr., MD [address] [place] [address] 12/20/2024 3:30 PM EDT Clinical Support [address] [address] documented as of this encounter Procedures Procedure [...]
[2024-11-26 08:10] LABS: Hematocrit 29.7 % (42.0-52.0); Hemoglobin 9.5 g/dL (14.1-18.0); Immature Granulocytes % 0.5 %; Mean Corpuscular HGB Conc 32.0 g/dL (31.8-35.4); Mean Corpuscular Hemoglobin 29.2 pg (27.0-31.2); Mean Corpuscular Volume 91.4 fl (80-94); Nucleated Red Blood Cells % 0 %; Platelet Count 506 K/mm3 (142-424); Red Blood Count 3.25 M/mm3 (4.60-6.20); Red Cell Distribution Width-SD 45.0 fL; White Blood Count 10.8 K/mm3 (4.8-10.8)
[2024-11-26] MEDS: ERTAPENEM SODIUM 1 GM in 0.9 % SODIUM CHLORIDE 50 ML IV (08:19)
--- OUTSIDE RECORDS SUMMARY | 2024-11-26 08:28 | XMS_ITS | Encounter Summary ---
Author Organization [facility] Address [address] [place] [address] Care Team Providers Care Rack Puncher Name Role Phone Asad Victor MD Primary Care Provider + [phone] Encounter Details Date Type Department Care Team [...] first t dino in the morning (EYE-CLIENT RELATION SPECIALIST) to steady your nerves or to [...] Encounter [facility] [address] 5th Floor Wing [address], [address] [place] [address] 11/26/2024 2:30 PM EDT Hospital Encounter [facility] [address] 5th Floor Wing [address] [place] [address] 11/26/2024 3:20 PM EDT Office Visit [facility] [address] 5th Floor Wing [address] [place] [address] Elisabet Schuster, PA [address] [place] [address] 11/29/2024 2:30 PM EDT Office Visit [facility] [address] [facility] [place] [address] Oscar Appiah MD [address] [facility] [address] [place] [address] documented as of this encounter [...] documented as of this encounter Care Teams Rack Puncher Relationship Specialty Start Date End Date Asad Victor MD [address] [place] [address] PCP - General 10/07/22 documented as of this encounter
--- OUTSIDE RECORDS SUMMARY | 2024-11-26 08:29 | XMS_ITS | Encounter Summary ---
Author Organization [facility] Address [address] [id number] Care Team Providers Care Program Analyst Name Role Phone Asad Victor MD Primary Care Provider + [phone] Reason for Visit * Reason Onset Date Comments HCN Clinical Concern/Question 11/15/2024 Encounter Details Date Type Department Care Team (Late st Contact Info) Description 11/15/2024 Telephone [facility] [address] [facility] 5th Floor Wing [address], [address] [place] [address] Nathaly Nowak MD [address] [facility] [address] [place] [address] HCN Clinical Concern/Question Social History [...] drink first t dino in the morning (EYE-ANALYSIS SPECIALIST) to steady your nerves or to [...] with info. Thank you Best contact number: [phone] (mobile) Optimal time of day to reach caller: ANYTIME Additional comments/information from caller: None Note: Please do not reply to this message. Follow-up communication and further actions as a result of this message need to be communicated with the patient directly, if the patient is not active onMyChart. If the patient is active on MyChart, they will receive notification of the communication/outcome via [employer]. documented in this encounter Plan of Treatment Upcoming Encounters Date Type Department Care Team (Late st Contact Info) Description 11/26/2024 2:00 PM EDT Hospital Encounter [facility] [address] Floor [address] [place] [address] 11/26/2024 2:30 PM EDT Hospital Encounter [facility] [address] Floor [address] [place] [address] 11/26/2024 3:20 PM EDT Office Visit [facility] [address] [facility] 5th Floor Wing [address] [place] [address] Elisabet Schuster PA [address] [facility] [address] [place] [address] 11/29/2024 2:30 PM EDT Office Visit [facility] [address] [place] [address] Oscar Appiah MD [address] [facility] [address] [place] [address] documented as of this encounter Goals Goal [...] documented as of this encounter Care Teams Program Analyst Relationship Specialty Start Date End Date Asad Victor MD [address] [place] [address] PCP - General 10/07/22 documented as of this encounter
--- OUTSIDE RECORDS SUMMARY | 2024-11-26 08:30 | XMS_ITS | Encounter Summary ---
Author Organization [facility] Address [address] [place] [address] Care Team Providers Care Ocular Care Technician Name Role Phone Asad Victor MD Primary Care Provider + [phone] Encounter Details Date Type Department Care Team [...] drink first t dino in the morning (EYE-MAINSPRING STRIP GAUGER) to steady your nerves or to get [...] Description 11/26/2024 2:00 PM EDT Hospital Encounter [facility] [address] 5th Floor Wing [address] [place] [address] 11/26/2024 2:30 PM EDT Hospital Encounter [facility] [address] 5th Floor [address] [place] [address] 11/26/2024 3:20 PM EDT Office Visit [facility] [address] 5th Floor [address] [place] [address] Elisabet Schuster, PA [address] [place] [address] 11/29/2024 2:30 PM EDT Office Visit [facility] [address] [facility] [place] [address] Oscar Appiah MD [address] [facility] [address] [place] [address] documented as of this encounter [...] documented as of this encounter Care Teams Ocular Care Technician Relationship Specialty Start Date End Date Asad Victor MD [address] [place] [address] PCP - General 10/07/22 documented as of this encounter
--- OUTSIDE RECORDS SUMMARY | 2024-11-26 08:30 | XMS_ITS | Encounter Summary ---
Author Organization [facility] Address [address] [place] [address] Care Team Providers Care Trouble Dispatcher Name Role Phone Asad Victor MD Primary Care Provider + [phone] Encounter Details Date Type Department Care Team [...] time in the past 12 m [facility], were you homeless or living in a [...] drink first t dino in the morning (EYE-CABINET MOUNTER) to steady your nerves or to get [...] PM EDT Hospital Encounter [facility] [address] [place] [address] 11/26/2024 2:30 PM EDT Hospital Encounter [facility] [address] 5th Floor [address] [place] [address] 11/26/2024 3:20 PM EDT [facility] [address] [place] [address] Elisabet Schuster, PA [address] [facility] [address] [place] [address] 11/29/2024 2:30 PM EDT Office Visit [facility] [address] [facility] [place] [address] Oscar Appiah MD [address] [facility] [address] [place] [address] documented as of this encounter [...] documented as of this encounter Care Teams Trouble Dispatcher Relationship Specialty Start Date End Date Asad Victor MD [address] [place] [address] PCP - General 10/07/22 documented as of this encounter
--- OUTSIDE RECORDS SUMMARY | 2024-11-26 08:30 | XMS_ITS | Encounter Summary ---
Author Organization [facility] Address [address] [id number] Care Team Providers Care Powdered Metal Supervisor Name Role Phone Asad Victor MD Primary Care Provider + [phone] Encounter Details Date Type Department Care Team (Late st Contact Info) Description 10/22/2024 Telephone Vascular Surgery [address] [place] [address] Alison Beltrán, COIL CLEANER, DNP [address] [facility] [address] [place] [address] Social History Tobacco Use Types Packs/Day Years [...] first t dino in the morning (EYE-CEMENT FINISHER) to steady your nerves or to get [...] Notes * Telephone Encounter - Alison Beltrán, COIL CLEANER, DNP - 10/22/2024 11:39 AM EDT Returned patient call. Patient s/p left common/superficial/profunda femoral thromboendarterectomy with bovine patch repair and left external iliac artery/BIOLOGICAL SCIENCES INSTRUCTOR stent with Dr Gautam on 10/17/24. Patient [...] [facility] [address] [place] [address] 11/26/2024 2:30 PM EDT Hospital Encounter [facility] [address] [place] [address] 11/26/2024 3:20 PM EDT Office Visit [facility] [address] [place] [address] Elisabet Schuster, GLENDA [address] [facility] [address] [place] [address] 11/29/2024 2:30 PM EDT Office Visit [facility] [address] [place] [address] Oscar Appiah MD [address] [facility] [address] [place] [address] documented as of this encounter [...] documented as of this encounter Care Teams Powdered Metal Supervisor Relationship Specialty Start Date End Date Asad Victor MD [address] [place] [address] PCP - General 10/07/22 documented as of this encounter
--- OUTSIDE RECORDS SUMMARY | 2024-11-26 08:30 | XMS_ITS | Clinical Summary ---
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 representative sections are submitted in cassette A1. Cold Time: <1m Kenia Dawit Aceves 10/21/2024 10:16 AM EDT [facility] MD LAB PATHOLOGY ORDERABLES Gwen l Result [facility] [address] [place] [address] * ANESTHESIA ULTRASOUND GUIDED (10/17/2024 8:52 AM [...] Performed by Swetha Villareal MD Staffing Performed: ACCOUNTING MANAGER ACCOUNTING MANAGER: Jenna Lopez CRNA Maria Fernanda Mccallum MD ANESTHESIA ORDERABLES Edite d Result - Final * ID AN ELECTIVE ENDOTRACHEAL AIRWAY, PB ANESTHESIA PLACEHOLDER (10/17/2024 8:03 AM EDT) Narrative Jenna Lopez CRNA - 10/17/2024 8:03 AM EDT Jenna Lopez CRNA 10/17/2024 9:00 AM Airway Date/Time: 10/17/2024 8:03 AM Reason: elective Airway not difficult General Information and Staff Patient location during procedure: OR ACCOUNTING MANAGER: Jenna Lopez CRNA Performed: ACCOUNTING MANAGER Patient Condition Indications for airway management: [...] Mccallum MD ANESTHESIA ORDERABLES Final Result * [facility] AN POCUS CARDIAC PROCDOC (10/17/2024 [...] Trace AR. The images were Saved in [employer]. The study was technically adequate. Comments: I [...] Modality Other Narrative 10/17/2024 9:50 AM EDT [facility]: Pre-operative CIED Report Assessment and Sara-Procedural Reommendations: Name: Mono Bobby Date: 10/17/2024 : 1960 Age: 64 y.o. Patient has a Sql Data Architect: Berger SEATING CAPTAIN-PM Remaining battery longevity adequate. Lead integrity test [...] 7:15 PM EDT CLINICAL INDICATION: s/p L CASHIER HOST/HOSTESS pseudoaneurysm injection TECHNIQUE: Non-invasive, real time duplex [...] sac. The following flow velocities were obtained: CASHIER HOST/HOSTESS: 114 cm/s SFA: 0 cm/s PFA: 278 cm/s Popliteal A: 41 cm/s INFORMIX DEVELOPER distal: 43 cm/s DPA: 67 cm/s Pseudoaneurysm sac: 0 cm/s Procedure Note Neil Isaac MD - 09/22/2024 CLINICAL INDICATION: s/p L CASHIER HOST/HOSTESS pseudoaneurysm injection TECHNIQUE: Non-invasive, real time duplex exam of the lower extremity arterialcirculation with Doppler ultrasonic waveform and spectral analysis wasperformed. COMPARISON: Post pseudoaneurysm thrombin injection arterial duplex [id number]/28/2025; Following thrombin injection of the left common femoral arterypseudoaneurysm, no active flow is noted. Study suggests successfulthrombin injection therapy FINDINGS: Left: Following thrombin injection, an echogenic thrombus is noted within thepseudoaneurysm sac. Color and pulsed Doppler analysis demonstrates anabsence of flow within the pseudoaneurysm sac. The following flowvelocities were obtained: CASHIER HOST/HOSTESS: 114 cm/s SFA: 0 cm/s PFA: 278 cm/s Popliteal A: 41 cm/s INFORMIX DEVELOPER distal: 43 cm/s DPA: 67 cm/s Pseudoaneurysm [...] ECG Atrial Rate 85 BPM MUSE ECG ID Interval 146 ms MUSE ECG QRSD Interval 128 ms MUSE ECG QT Interval 390 ms MUSE ECG QTC Interval 464 ms MUSE ECG P [place] 52 degrees MUSE ECG R [place] 263 degrees MUSE ECG T Wave [place] 57 degrees MUSE ECG Diagnosis Atrial-sensed ventricular-pace [...] HIV 1/2 Differentiation (09/20/2024 10:33 PM EDT) [facility] HIV 1 & 2 Antibody/Antigen Screen [...] ORDERABLES Final Result Performing Organization Address City/[facility]/ZIP Co de Phone Number [facility] [address] [place] [address] * Hepatitis C Antibody - ED (09/20/2024 10:33 PM EDT) [facility] Hepatitis C Antibody Negative Negative 09/20/2024 11:39 PM EDT [facility] Blood Venous blood specimen / Unknown Venipuncture / Unknown 09/20/2024 10:33 PM EDT 09/20/2024 10:53 PM EDT Giorgi Perkins MD LAB BLOOD ORDERABLES Final Result Performing Organization Address City/[facility]/ZIP Co de Phone Number [facility] [address] [place] [address] * APTT (09/20/2024 10:33 PM EDT) aPTT 28 25 - 35 sec LAB COAGULATION METHOD 09/21/2024 12:19 AM EDT [facility] Blood Venous blood specimen / Unknown Venipuncture / Unknown 09/20/2024 10:33 PM EDT 09/20/2024 10:42 PM EDT Giorgi Perkins MD LAB BLOOD ORDERABLES Final Result [facility] [address] [place] [address] from Last 3 Months Additional Health Concerns Active Problems Noted Date Diagnosed Date Autogenerated Problem 09/23/2024 Insurance MEDICAID [facility] MEDICARE Advance Directives * Full Code [...] Patient has decision-making capacity? Yes Care Teams Electrical Laboratory Technician Relationship Specialty Start Date End Date Asad Victor MD [address] [place] [address] PCP - General 10/07/22
--- OUTSIDE RECORDS SUMMARY | 2024-11-26 08:31 | XMS_ITS | Encounter Summary ---
Author Organization Healthcare Address [address] [place] [address] Care Team Providers Care Bankruptcy Judge Name Role Phone Asad Victor MD Primary Care Provider + [phone] Encounter Details Date Type Department Care Team (Late st Contact Info) Description 10/17/2024 Orders Only External Location [address] [place] [address] Provider, External Social History Tobacco Use Types [...] drink first t dino in the morning (EYE-CLINICAL STATISTICS MANAGER) to steady your nerves or to get rid of a hangover? 0 10/18/2021 CAGE Questionnaire Score 0 022 Utilities Answer Date Recorded In the past 12 months has th e [employer], gas, oil, or water [employer] threatened to shut off services in your [...] Description 11/26/2024 2:00 PM EDT Hospital Encounter [facility] [address] [facility] [address] [place] [address] 11/26/2024 2:30 PM EDT Hospital Encounter [facility] [address] [facility] [address] [place] [address] 11/26/2024 3:20 PM EDT Office Visit [facility] [address] [facility] [address] [place] [address] Elisabet Schuster PA [address] [place] [address] 11/29/2024 2:30 PM EDT Office Visit [facility] [address] [place] [address] Oscar Appiah MD [address] [facility] [address] [place] [address] documented as of this [...] documented as of this encounter Care Teams Bankruptcy Judge Relationship Specialty Start Date End Date Asad Victor MD [address] [place] [address] PCP - General 10/07/22 documented as of this encounter
--- OUTSIDE RECORDS SUMMARY | 2024-11-26 08:31 | XMS_ITS | Encounter Summary ---
Author Organization [employer] ([place], [place], [place], [place]) Address [address] [place] [address] Care Team Providers Care Slab Installer Name Role Phone Unavailable Primary Care Provider [...] Description 11/27/2024 2:20 PM EDT Office Visit [facility] [place] [address] [place] [address] Jerry Monroe Jr., MD [address] [place] [address] 11/29/2024 4:00 PM EDT Clinical Support [facility] [address] [address] 12/02/2024 2:15 PM EDT Clinical Support [facility] [place] [address] [place] [address] 12/04/2024 3:10 PM EDT Office Visit [facility] [address] [place] [address] Jerry Monroe Jr., MD [address] [place] [address] 12/06/2024 4:15 PM EDT Clinical Support [facility] [address] [place] [address] 12/09/2024 3:30 PM EDT Clinical Support [facility] [place] [address] [place] [address] 12/11/2024 2:40 PM EDT Office Visit [facility] [address] [place] [address] Jerry Monroe Jr., MD [address] [place] [address] 12/13/2024 3:30 PM EDT Clinical Support [facility] [address] [place] [address] 12/16/2024 3:30 PM EDT Clinical Support [facility] [address] [place] [address] 12/18/2024 3:00 PM EDT Office Visit [facility] 1 [place] [address] Jerry Monroe Jr., MD [address] [place] [address] 12/20/2024 3:30 PM EDT Clinical Support [facility] [address] [place] [address] documented as of this encounter Visit Diagnoses Not on filedocumented in this encounter
--- OUTSIDE RECORDS SUMMARY | 2024-11-26 08:31 | XMS_ITS | Encounter Summary ---
Author Organization [facility] Address [address] [place] [address] Care Team Providers Care Production Troubleshooter Name Role Phone Asad Victor MD Primary Care Provider + [phone] Encounter Details Date Type Department Care Team [...] drink first t dino in the morning (EYE-PHYSICIAN ASSISTANT) to steady your nerves or to [...] 1 Month) No 025 2:00 PM EDT [place], Brigitte E, RN 2. Non-Specific Active Suici marcelle Thoughts (Past 1 Month) No 11/06/2024 2:00 PM EDT Brigitte Castellon, RN 6. Suicidal Behavior (Lifetime) No 2:00 PM EDT Brigitte Castellon, RN documented as of this encounter Plan of Treatment Upcoming Encounters Date Type Department Care Team (Late st Contact Info) Description 11/26/2024 2:00 PM EDT Hospital Encounter [facility] [address] [place] [address] 11/26/2024 2:30 PM EDT Hospital Encounter [facility] [address] [place] [address] 11/26/2024 3:20 PM EDT Office Visit [facility] [address] [facility] 5th Floor [address] [place] [address] Elisabet Schuster, PA [address] [place] [address] 11/29/2024 2:30 PM EDT Office Visit [facility] [address] [place] [address] Oscar Appiah MD [address] [place] [address] [address] [place] [address] documented as of this encounter [...] as of this encounter Care Teams Production Troubleshooter Relationship Specialty Start Date End Date Asad Victor MD [address] [place] [address] PCP - General 10/07/22 documented as of this encounter
--- OUTSIDE RECORDS SUMMARY | 2024-11-26 08:31 | XMS_ITS | Encounter Summary ---
Author Organization Healthcare Address [address] [place] [address] Care Team Providers Care Wet Room Worker Name Role Phone Asad Victor MD Primary Care Provider + [phone] Encounter Details Date Type Department Care Team (Late st Contact Info) Description 11/05/2024 Orders Only External Location [address] [place] [address] Provider, External Social History Tobacco Use Types [...] drink first t dino in the morning (EYE-WARDSPERSON) to steady your nerves or to get rid of a hangover? 0 10/18/2021 CAGE Questionnaire Score 0 022 Utilities Answer Date Recorded In the past 12 months has th e [employer], gas, oil, or water company threatened to [...] [facility] [address] [facility] 5th Floor [address] [place] [address] 11/26/2024 2:30 PM EDT Hospital Encounter [facility] [address] [facility] 5th Floor [address] [place] [address] 11/26/2024 3:20 PM EDT Office Visit [facility] [address] [place] [address] Elisabet Schuster PA [address] [place] [address] 11/29/2024 2:30 PM EDT Office Visit [facility] [address] [place] [address] Oscar Appiah MD [address] [facility] [address] [place] [address] documented as of this encounter [...] documented as of this encounter Care Teams Wet Room Worker Relationship Specialty Start Date End Date Asad Victor MD [address] [place] [address] PCP - General 10/07/22 documented as of this encounter
--- OUTSIDE RECORDS SUMMARY | 2024-11-26 08:31 | XMS_ITS | Referral Summary ---
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) 11/20/2024 Travel 11/20/2024 2:15 PM EDT Clinical Support [facility] [place] [address] [place] [address] Jerry Monroe Jr., MD 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) 11/18/2024 Travel 11/18/2024 1:10 PM EDT Office Visit [facility] [place] [address] [place] [address] Jerry Monroe Jr., MD Non-pressure [...] Description 11/27/2024 2:20 PM EDT Office Visit [facility] 1 [place] [address] Jerry Monroe Jr., MD [address] [place] [address] 11/29/2024 4:00 PM EDT Clinical Support [facility] 1 [place] [address] 12/02/2024 2:15 PM EDT Clinical Support [address] [address] 12/04/2024 3:10 PM EDT Office Visit [address] [address] Jerry Monroe Jr., MD [address] [place] [address] 12/06/2024 4:15 PM EDT Clinical Support [address] [address] 12/09/2024 3:30 PM EDT Clinical Support [address] [address] 12/11/2024 2:40 PM EDT Office Visit [address] [address] Jerry Monroe Jr., MD [address] [place] [address] 12/13/2024 3:30 PM EDT Clinical Support [address] [address] 12/16/2024 3:30 PM EDT Clinical Support [facility] [address] [place] [address] 12/18/2024 3:00 PM EDT Office Visit [facility] [address] [place] [address] Jerry Monroe Jr., MD [address] [place] [address] 12/20/2024 3:30 PM EDT Clinical Support [facility] [address] [place] [address] Procedures Procedure Name Priority Date/Time Associated Diagnosis Comments WOUND TREATMENT Routine 11/22/2024 5:14 PM EDT 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) RI DEBRIDEMENT MUSCLE &/FASCIA EA ADDL 20 SQ CM Routine 11/18/2024 1:10 PM EDT 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) Localized tissue (HCC) Other specified local infections of the skin and subcutaneous tissue RI DEBRIDEMENT MUSCLE &/FASCIA EA ADDL 20 SQ CM Routine 11/18/2024 1:10 PM EDT 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) Localized tissue (HCC) Other specified local infections of the skin and subcutaneous tissue RI DEBRIDEMENT MUSCLE &/FASCIA 1ST 20 SQ CM/< Routine 11/18/2024 1:10 PM EDT 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) Localized tissue (HCC) Other specified local infections of the skin and subcutaneous tissue RI DEBRIDEMENT MUSCLE &/FASCIA EA ADDL 20 SQ CM Routine 11/18/2024 1:10 PM EDT 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) Localized tissue (HCC) Other specified local infections of the skin and subcutaneous tissue RI DEBRIDEMENT MUSCLE &/FASCIA EA ADDL 20 SQ CM Routine 11/18/2024 1:10 PM EDT 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) Localized tissue (HCC) Other specified local infections of the skin and subcutaneous tissue RI DEBRIDEMENT MUSCLE &/FASCIA 1ST 20 SQ CM/< Routine 11/18/2024 1:10 PM EDT 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 [...] MD PROCEDURE/MINOR SURGICAL ORDERABLES Final Result * RI DEBRIDEMENT MUSCLE &/FASCIA 1ST 20 SQ CM/<, RI DEBRIDEMENT MUSCLE &/FASCIA EA ADDL 20SQ CM, RI DEBRIDEMENT MUSCLE &/FASCIA EA ADDL 20 SQ [...] provider verified the correct patient, procedure, equipment, client application support specialist, and site/side marked as required. [...] Final Result from Last 3 Months Insurance [facility] MCR ADV DUAL COMPLETE MEDICAID OF [place]
--- OUTSIDE RECORDS SUMMARY | 2024-11-26 08:31 | XMS_ITS | Clinical Summary ---
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) 11/20/2024 Travel 11/18/2024 1:10 PM EDT Office Visit [facility] [place] [address] [place] [address] Jerry Monroe Jr., MD Non-pressure chronic ulcer [...] Description 11/27/2024 2:20 PM EDT Office Visit [facility] [address] [place] [address] Jerry Monroe Jr., MD [address] [place] [address] 11/29/2024 4:00 PM EDT Clinical Support [facility] [address] [place] [address] 12/02/2024 2:15 PM EDT Clinical Support [address] [address] 12/04/2024 3:10 PM EDT Office Visit [address] [address] Jerry Monroe Jr., MD [address] [place] [address] 12/06/2024 4:15 PM EDT Clinical Support [address] [address] 12/09/2024 3:30 PM EDT Clinical Support [address] [address] 12/11/2024 2:40 PM EDT Office Visit [address] [address] Jerry Monroe Jr., MD [address] [place] [address] 12/13/2024 3:30 PM EDT Clinical Support [address] [address] 12/16/2024 3:30 PM EDT Clinical Support [facility] [address] [place] [address] 12/18/2024 3:00 PM EDT Office Visit [facility] [address] [place] [address] Jerry Monroe Jr., MD [address] [place] [address] 12/20/2024 3:30 PM EDT Clinical Support [facility] [address] [place] [address] Health Maintenance Due Date Last [...] years (2 of 2 - PCV) 03/11/2021 Abdominal Aortic Aneurysm (AAA) Screen 2024 Falls Risk Screening 03/27/2024 Medicare IPPE (Welcome to Medicare) [id number] 03/27/2024 Hemoglobin A1C 11/18/2024 COVID-19 VACCINE (3 - season) 2024, 07/31/2020 Influenza Vaccine (#1) 2024 02/06/2021 Tobacco Cessation Counseling and Screening (12+) 11/22/2025 11/22/2024 Procedures Procedure Name Priority Date/Time Associated Diagnosis Comments WOUND TREATMENT Routine 11/22/2024 5:14 PM EDT 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) VA DEBRIDEMENT MUSCLE &/FASCIA EA ADDL 20 SQ CM Routine 11/18/2024 1:10 PM EDT 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) Localized tissue (HCC) Other specified local infections of the skin and subcutaneous tissue VA DEBRIDEMENT MUSCLE &/FASCIA EA ADDL 20 SQ CM Routine 11/18/2024 1:10 PM EDT 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) Localized tissue (HCC) Other specified local infections of the skin and subcutaneous tissue VA DEBRIDEMENT MUSCLE &/FASCIA 1ST 20 SQ CM/< Routine 11/18/2024 1:10 PM EDT 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) Localized tissue (HCC) Other specified local infections of the skin and subcutaneous tissue VA DEBRIDEMENT MUSCLE &/FASCIA EA ADDL 20 SQ CM Routine 11/18/2024 1:10 PM EDT 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) Localized tissue (HCC) Other specified local infections of the skin and subcutaneous tissue VA DEBRIDEMENT MUSCLE &/FASCIA EA ADDL 20 SQ CM Routine 11/18/2024 1:10 PM EDT 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) Localized tissue (HCC) Other specified local infections of the skin and subcutaneous tissue VA DEBRIDEMENT MUSCLE &/FASCIA 1ST 20 SQ CM/< Routine 11/18/2024 1:10 PM EDT 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 Debridement Details [...] MD PROCEDURE/MINOR SURGICAL ORDERABLES Final Result * VA DEBRIDEMENT MUSCLE &/FASCIA 1ST 20 SQ CM/<, VA DEBRIDEMENT MUSCLE &/FASCIA EA ADDL 20SQ CM, VA DEBRIDEMENT MUSCLE &/FASCIA EA ADDL 20 SQ [...] provider verified the correct patient, procedure, equipment, learning support resource room teacher, and site/side marked as required. Debridement Details [...] Final Result from Last 3 Months Insurance [facility] ADV DUAL COMPLETE MEDICAID OF [place]
--- OUTSIDE RECORDS SUMMARY | 2024-11-26 08:34 | XMS_ITS | Encounter Summary ---
Author Organization Healthcare Address [address] [place] [address] Care Team Providers Care Wireless Team Member Name Role Phone Asad Victor MD Primary Care Provider + [phone] Encounter Details Date Type Department Care Team (Late st Contact Info) Description 11/15/2024 Clinical Support [place] [id number] [place] [address] Charly [place], PharmD [address] [place] [address] [address] [place] [address] Social History Tobacco Use Types [...] drink first t dino in the morning (EYE-COSMETICS AND TOILETRIES SALESPERSON) to steady your nerves or to get rid of a hangover? 0 10/18/2021 CAGE Questionnaire Score 0 022 Utilities Answer Date Recorded In the past 12 months has th e [employer], gas, oil, or water company threatened to [...] [facility] [address]th Floor [address] [place] [address] 11/26/2024 2:30 PM EDT Hospital Encounter [facility] [address] 5[address] [place] [address] 11/26/2024 3:20 PM EDT Office Visit [facility] [address] 5[address] [place] [address] Elisabet Schuster PA [address] [place] [address] 11/29/2024 2:30 PM EDT Office Visit [facility] [address] [facility] [address] Oscar Appiah MD [address] [facility] [address] [place] [address] documented as of this encounter [...] documented as of this encounter Care Teams Wireless Team Member Relationship Specialty Start Date End Date Asad Victor MD [address] [place] [address] PCP - General 10/07/22 documented as of this encounter
[2024-11-26 08:35] VITALS: BP 117/42; PULSE 64; RESP 18; TEMP 36.9; O2SAT 97
--- OUTSIDE RECORDS SUMMARY | 2024-11-26 08:35 | XMS_ITS | Encounter Summary ---
Author Organization [employer] ([place], [place], [place], [place]) Address [address] [place] [address] Care Team Providers Care Box Turner Name Role Phone Unavailable Primary Care Provider [...] Description 11/27/2024 2:20 PM EDT Office Visit [facility] [place] [address] [place] [address] Jerry Monroe Jr., MD [address] [place] [address] 11/29/2024 4:00 PM EDT Clinical Support [facility] [address] [address] 12/02/2024 2:15 PM EDT Clinical Support [facility] [place] [address] [place] [address] 12/04/2024 3:10 PM EDT Office Visit [facility] 1 [place] [address] Jerry Monroe Jr., MD [address] [place] [address] 12/06/2024 4:15 PM EDT Clinical Support [facility] [address] [place] [address] 12/09/2024 3:30 PM EDT Clinical Support [facility] [place] [address] [place] [address] 12/11/2024 2:40 PM EDT Office Visit [facility] 1 [place] [address] Jerry Monroe Jr., MD [address] [place] [address] 12/13/2024 3:30 PM EDT Clinical Support [facility] [address] [place] [address] 12/16/2024 3:30 PM EDT Clinical Support [facility] [address] [place] [address] 12/18/2024 3:00 PM EDT Office Visit [facility] [address] [place] [address] Jerry Monroe Jr., MD [address] [place] [address] 12/20/2024 3:30 PM EDT Clinical Support [facility] [address] [place] [address] documented as of this encounter Visit Diagnoses Not on filedocumented in this encounter
[2024-11-26] MEDS: SODIUM CHLORIDE 0.9% IV (08:52)
[2024-11-26] MEDS: MICAFUNGIN SODIUM IV (08:52)
[2024-11-26 09:20] VITALS: BP 110/48; PULSE 65; RESP 18; TEMP 36.9; O2SAT 96
[2024-11-26 10:13] VITALS: BP 115/52; PULSE 72; RESP 18; TEMP 37; O2SAT 97
--- OUTSIDE RECORDS SUMMARY | 2024-11-26 14:00 | XMS_ITS | Encounter Summary ---
Author Organization [facility] Address [address] [place] [address] Care Team Providers Care County Assessor Name Role Phone Asad Victor MD Primary Care Provider + [phone] Reason for Visit * Imaging (Routine) - Authorized Specialty Diagnoses / Procedures Referred By Contac t Referred To Contact Cardiology Diagnoses Critical limb ischemia of left lower extremity Pseudoaneurysm of left femoral artery (CMS/HCC) Procedures VAS US Arterial Duplex Lower Extremity Unilateral Left Terrell Gautam MD [address] [facility] [address] [place] [address] Phone: tel: fax: Referral ID Status Reason Start Date Expiration Date Visits Requested Visits Authorized [id number] Authorized Perform Procedure 10/19/2024 04/20/2026 1 1 Encounter Details Date Type Department Care Team (Late st Contact Info) Description 11/26/2024 2:00 PM EDT Hospital En[facility] [address] [facility] 5th Floor [address] [place] [address] Social History Tobacco Use Types [...] drink first t dino in the morning (EYE-GREY GOODS MARKER) to steady your nerves or to get rid of a hangover? 0 10/18/2021 CAGE Questionnaire Score 0 022 Utilities Answer Date Recorded In the past 12 months has e electric, gas, oil, or water company [...] Team (Late st Contact Info) Description 11/26/2024 2:30 PM EDT Hospital Encounter [facility] [address] [facility] 5th Floor [address] [place] [address] 11/26/2024 3:20 PM EDT Office Visit [facility] [address] [facility] 5th Floor [address] [place] [address] Elisabet Schuster, PA [address] [facility] [address] [place] [address] 11/29/2024 2:30 PM EDT Office Visit [facility] [address] [place] [address] Oscar Appiah MD [address] [facility] [address] [place] [address] Scheduled Orders Name Type Priority Associated Diagnoses Order Schedule VAS US Arterial Duplex Lower Extremity Unilateral Left Vascular Ultrasound Routine Critical limb ischemia of left lower extremity Pseudoaneurysm of left femoral artery (CMS/HCC) 1 Occurrences starting 10/19/2024 until 04/22/2026 documented as of this encounter Goals [...] documented as of this encounter Care Teams County Assessor Relationship Specialty Start Date End Date Asad Victor MD [address] [place] [address] PCP - General 10/07/22 documented as of this encounter
--- OUTSIDE RECORDS SUMMARY | 2024-11-26 14:30 | XMS_ITS | Encounter Summary ---
Author Organization [facility] Address [address] [place] [address] Care Team Providers Care Handle Maker Name Role Phone Asad Victor MD Primary Care Provider + [phone] Reason for Visit * Imaging (Routine) - Authorized Specialty Diagnoses / Procedures Referred By Contac t Referred To Contact Cardiology Diagnoses Critical limb ischemia of left lower extremity Pseudoaneurysm of left femoral artery (CMS/HCC) Procedures VAS Ankle Brachial Index - Segmental Terrell Gautam MD [address] [facility] [address] [place] [address] Phone: tel: fax: Referral ID Status Reason Start Date Expiration Date Visits Requested Visits Authorized [id number] Authorized Perform Procedure 10/19/2024 04/20/2026 1 1 Encounter Details Date Type Department Care Team (Late st Contact Info) Description 11/26/2024 2:30 PM EDT Hospital Encounter [place] [facility] [address] [facility] 5th Floor [address] [place] [address] Social History Tobacco Use Types [...] time in the past 12 m [facility], were you homeless or living in [...] drink first t dino in the morning (EYE-DRAPERY HEAD FORMER) to steady your nerves or to get rid of a hangover? 0 10/18/2021 CAGE Questionnaire Score 0 07/25/2 022 Utilities Answer Date Recorded In the [...] [facility] [address] [facility] 5th Floor [address] [place] [address] 11/26/2024 3:20 PM EDT Office Visit [facility] [address] [facility] 5th Floor [address] [place] [address] Elisabet Schuster PA [address] [facility] [address] [place] [address] 11/29/2024 2:30 PM EDT Office Visit [facility] [address] [place] [address] Oscar Appiah MD [address] [facility] [address] [place] [address] Scheduled Orders Name Type Priority [...] documented as of this encounter Care Teams Handle Maker Relationship Specialty Start Date End Date Asad Victor MD [address] [place] [address] PCP - General 10/07/22 documented as of this encounter
== END 2024-11-26 10:15 | disposition home or self-care (01) ==
LOC: INF 08:01
PROVIDERS: PCP Family Medicine
DX: T14.8XXA Other injury of unspecified body region, initial encounter (principal); L08.9 Local infection of the skin and subcutaneous tissue, unspecified; Y93.9 Activity, unspecified; Y92.9 Unspecified place or not applicable; X58.XXXA Exposure to other specified factors, initial encounter
CPT/HCPCS: 36592; 85025; 96365; 96367; J1335; J2248

== ENCOUNTER 2024-11-27 07:59 | Outpatient (CLI) | payer MEDICARE, OTHER, SELFPAY ==
--- OUTSIDE RECORDS SUMMARY | 2024-10-11 10:15 | XMS_ITS | Encounter Summary ---
Author Organization [facility] Address [address] [place] [address] Care Team Providers Care Rigging Helper Name Role Phone Asad Victor MD Primary Care Provider + [phone] Encounter Details Date Type Department Care Team (Latest Contact Info) Description 10/11/2024 10:15 AM EDT Pre-Admission Testing [facility]op [facility] [address] [place] [phone] Preop testing (Primary Dx) Anesthesia Record Procedure [...] Hand; Site Prep: Chlorhexidine ; Local Anesth: [place]; Technique: Anatomical landmarks; Inserted by: CHRISTIAN Acuna; [...] G; Orientation: Right; Location: Axillary; Inserted by: SERVER SUPPORT TECHNICIAN; Securement: Sutured; Patient Tolerance: Tolerated well; Removal [...] drink first t dino in the morning (EYE-HUMAN FACTORS SCIENTIST) to steady your nerves or to get [...] note 09/25/24 (media) + CAD s/p multiple PR's and 3V CABG 02/2019, 2 stents prior to CABG Atrial Fibrillation with RVR s/p CABG + carotid artery disease s/p R CEA 2016 + 3rd degree AV block HALAL MEAT PACKER-P placed 08/2023 for Wenkeback with 11 sec pause + HLD + HTN - controlled + PAD 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 S/P intravascular lithotripsy of left common and external iliac artery with 2 continuous balloon mounted bare metal stents 09/12/24 on Xarelto and ASA + WILHELM occ, low energy for > year - had work-up recently in [place] (will get records) + peripheral edema LLE [...] ENDARTERECTOMY N/A 2017 Endarterectomy Carotid Artery from [facility] CORONARY ANGIOPLASTY Left Coronary Angiography With Concomitant Left Heart Catheterization from [facility] CORONARY ARTERY BYPASS GRAFT N/A 2018 3V ELBOW SURGERY Right OTHER SURGICAL HISTORY N/A Reported Prior Surgical / Procedural History from [facility] [5] No Known Allergies [6] Current Outpatient [...] card, photo ID, along with power of employment law attorney, guardianship or advanced directives if applicable [...] Care Team (Late st Contact Info) Description 11/29/2024 2:30 PM EDT Office Visit [facility] [address] [facility] [place] [address] Oscar Appiah MD [address] [facility] [place] [address] documented as of this encounter [...] Modality Other Narrative 10/17/2024 9:50 AM EDT [facility]: Pre-operative CIED Report Assessment and Sara-Procedural Reommendations: Name: Mono Bobby Date: 10/17/2024 : 1960 Age: 64 y.o. Patient has a Warp Starter: Berger HALAL MEAT PACKER-PM Remaining battery longevity adequate. Lead integrity test [...] recommendations. Supporting reports can be found in [employer] media file. Emelina DOSHI CV IMPLANTABLE CARDIAC DEV [...] documented as of this encounter Care Teams Rigging Helper Relationship Specialty Start Date End Date Asad Victor MD [address] [place] [address] PCP - General 10/07/22 documented as of this encounter
--- OUTSIDE RECORDS SUMMARY | 2024-10-16 14:45 | XMS_ITS | Encounter Summary ---
Author Organization Healthcare Address [address] [place] [address] Care Team Providers Care Toys Inspector Name Role Phone Asad Victor MD Primary Care Provider + [phone] Encounter Details Date Type Department Care Team (Latest Contact Info) Description 10/16/2024 2:45 PM EDT - 10/16/2024 11:59 PM EDT Hospital Encounter Cardiac Imaging [address] [place] [address] Discharge Disposition: Home or Self Care Social [...] drink first t dino in the morning (EYE-CONSTRUCTION ANALYST) to steady your nerves or to [...] Description 11/29/2024 2:30 PM EDT Office Visit [facility] [address] [place] [address] Oscar Appiah MD [address] [place] [address] [address] [place] [address] documented as of this encounter [...] Modality Other Narrative 10/17/2024 9:50 AM EDT [facility]: Pre-operative CIED Report Assessment and Sara-Procedural Reommendations: Name: Mono Bobby Date: 10/17/2024 : 1960 Age: 64 y.o. Patient has a Melter Supervisor Oxygen Furnace: Berger SNOWMAKER-PM Remaining battery longevity adequate. Lead integrity test [...] recommendations. Supporting reports can be found in [employer] file. 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
--- OUTSIDE RECORDS SUMMARY | 2024-10-17 06:21 | XMS_ITS | Encounter Summary ---
Author Organization [facility] Address [address] [id number] Care Team Providers Care Junior Engineer Name Role Phone Asad Victor MD Primary Care Provider [phone] Reason for Referral * Imaging (Routine) - Authorized Specialty Diagnoses / Procedures Referred By Susan t Referred To Contact Cardiology Diagnoses Critical limb ischemia of left lower extremity Pseudoaneurysm of left femoral artery (CMS/HCC) Procedures VAS US Arterial Duplex Lower Extremity Unilateral Left Terrell Gautam MD [address] [address] Phone: tel: fax: Referral ID Status Reason Start Date Expiration Date Visits Requested Visits Authorized [id number] Authorized Perform Procedure 10/19/2024 04/20/2026 1 1 * Imaging (Routine) - Authorized Specialty Diagnoses / Procedures Referred By Contac t Referred To Contact Cardiology Diagnoses Critical limb ischemia of left lower extremity Pseudoaneurysm of left femoral artery (CMS/HCC) Procedures VAS Ankle Brachial Index - Segmental Terrell Gautam MD [id number] [place] [address] Phone: tel: fax: Referral ID Status Reason Start Date Expiration Date Visits Requested Visits Authorized [id number] Authorized Perform Procedure 10/19/2024 04/20/2026 1 1 * Consultation (Routine) - Authorized Specialty Diagnoses / Procedures Referred By Contact Referred To Contact Vascular Surgery / [facility] Diagnoses Critical limb ischemia of left lower extremity Pseudoaneurysm of left femoral artery (CMS/HCC) Terrell Gautam MD [address] [place] [address] Phone: tel:[phone] fax:[phone] [facility] [address] [place] [address] 5th Floor [address] [place] [address] Phone: tel: fax: Referral ID Status Reason Start Date Expiration Date Visits Requested Visits Authorized [id number] Authorized Specialty Services Required 10/19/2024 04/20/2026 [address] Gautam, with SIL, arterial duplex Reason for Visit * Auth/Cert (Routine) Specialty Diagnoses / Procedures Referred By Susan t Referred To Contact Diagnoses Critical limb ischemia of left lower extremity Critical limb ischemia of left lower extremity [I70.222] Procedures MD VEIN BYPASS GRAFT,FEM-POP CREATION, BYPASS, ARTERIAL, FEMORAL TO POPLITEAL Terrell Gautam MD [address] [place] [phone] Phone: tel: fax: [facility] A OPERATING ROOM [address] [place] [address] Phone: tel: Referral ID Status Reason Start Date Expiration Date Visits Re quested Visits Authorized [id number] 1 1 Encounter Details Date Type Department Care Team (Latest Contact Info) Description 10/17/2024 6:21 AM EDT - 10/19/2024 12:39 PM EDT Hospital Encounter [facility] H Inpatient [address] [place] [phone] Terrell Gautam MD [address] [place] [address] Pseudoaneurysm of left femoral artery (CMS/HCC) [...] any time in the past 12 m [facility], were you homeless or living [...] drink first t dino in the morning (EYE-MICROBIOLOGY INSTRUCTOR) to steady your nerves or to get rid of a hangover? 0 10/18/2021 CAGE Questionnaire Score 0 022 Utilities Answer Date Recorded In the past 12 months has th [employer], gas, oil, or water [employer] [place] threatened to shut off services in your [...] provided Taken 10/17/20242107 by Jourdan Grimes II equine internship Review/Management: medications reviewed Problem: Skin Injury Risk [...] Ongoing, Progressing Intervention: Promote Activity and Functional Hickman Flowsheets (Taken 10/19/2024 1048) Self-Care Promotion: BADL personal objects within reach meal set-up provided * Yuni Ramires - Keyla Chow - 10/19/2024 11:45 AM EDT Images from the original note were not included. [id number] After Peripheral Artery Bypass Surgery: In the [...] home. Last Reviewed Date: 2023 00:00:00 ?? [id number] [employer]. All rights reserved. This information is not intended as a substitute for professional medical care. Always follow your healthcare professional's instructions. * Progress Notes - Emelina Friend - 10/19/2024 11:44 AM EDT Case Management Adult Progress Note Bev Bobby 64 y.o. male CSN: [id number] Admission: 10/17/2024 6:21 AM Primary Problem: Critical [...] if any other needs arise. Emelina Friend COUTURE DRESSMAKER, RECRUITING COORDINATOR Social Work Case Management * Yuni OviJOSE MANUEL Chow Keyla - 10/19/2024 11:44 AM EDT Images from the original note were not included. [id number] Peripheral Artery Disease (PAD) Peripheral artery disease [...] cause. Last Reviewed Date: 2024 00:00:00 ?? [id number] [employer]. All rights reserved. This information is not intended as a substitute for professional medical care. Always follow your healthcare professional's instructions. * Yuni DiorNAVYA - Keyla Chow - 10/19/2024 11:44 AM EDT Images from the original note were not included. [id number] Leg Artery Emergencies: Critical Limb Ischemia (CLI) [...] appointments. Last Reviewed Date: 2023 00:00:00 ?? 5712-0056 [employer]. All rights reserved. This information is not intended as a substitute for professional medical care. Always follow your healthcare professional's instructions. * Discharge Summary - Dandy Baltazar MD - 10/19/2024 11:31 AM EDT Hospitalization Admit Date/Time: 10/17/2024 6:21 AM Admitting Attending: Terrell Gautam Discharge Date: 10/19/24 Discharge Attending Physician: Nirmal Cueto MD PCP name and Address: Asad Victor MD (Inactive) [address] [place] [address] / [facility] [address] Referring provider name and address: Timothy Marques PA [address] [place] [address] Chief Concern, Brief History of Present Illness, and Hospital Course Bev Bobby is an 64 y.o. 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 He [...] Your Medications These medications were sent to [facility] - [place], [place] - [address], [facility] [address] acetaminophen 500 MG tablet clopidogrel 75 MG [...] of water. 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 He [...] provided Taken 10/17/20242107 by Jourdan Grimes II, equine internship Review/Management: medications reviewed Problem: Skin Injury Risk [...] Ongoing, Progressing Intervention: Promote Activity and Functional Hickman Flowsheets (Taken 10/19/2024 1048) Self-Care Promotion: BADL [...] PARTICIPANTS IN CARE Visitors Present No Certified Wellness Program Manager (if applicable) PRESENTATION Oxygen Oxygen Therapy: None [...] Level of Mobility Ambulatory- household only Mobility Hickman Independent gait with device (rollator) History of [...] numbness in rodney) BED MOBILITY Level of Hickman Physical/Non- physical Assist Adaptive Equipment Utilized Rolling/ Turning Scooting/ Bridging Modified independence (anteriorly to EOB) Bed rails Supine to Sit Modified Hickman (to the right) (HOB flat) Bed rails Sit to Supine Interventions HOB flat to simulate home environment TRANSFERS Level of Hickman Physical/Non- physical Assist Adaptive Equipment Utilized Sit [...] stable surfaces during transitions. AMBULATION Level of Hickman Distance Adaptive Equipment Utilized Ambulation Standby assist, [...] Posture: Forward head, Rounded shoulders Level of Hickman Balance Support Interventions Static Sit Independent Right [...] 3-5 steps with a railing?: A little [facility] 6-Clicks Mobility Assessment Total : 22 ASSESSMENT [...] Participants in Care Family/Caregiver Present: No Certified Wellness Program Manager: Not Applicable Presentation Oxygen Therapy: None (Room [...] needs in reach. RN reported patient ad lias in room for bathroom use. Home Living/Set-Up [...] Level of Mobility: Ambulatory- household only Mobility Hickman: Independent gait with device (rollator) History of [...] Mobility Bed Mobility Exam: Scooting/Bridging Level of Hickman: Modified independence (anteriorly to EOB) Assistive Device: Bed rails Bed Mobility Exam: Supine to Sit Level of Hickman: Modified Hickman (to the right) Physical/Nonphysical Assist: (HOB flat) Assistive Device: Bed rails Transfers Transfer Exam: Sit to stand Level of Hickman: Stand-by assist Physical/Nonphysical Assist: Supervision, Verbal Cues, Minimal cues Assistive Device: Walker, rolling Transfer Exam: Stand to Sit Level of Hickman: Stand-by assist Physical/Nonphysical Assist: Supervision, Verbal Cues, [...] regarding toileting at this time. Standardized Assessments [facility] 6-Click Daily Activities Help from Other: Don/Doff Regular Lower Body Clothings: None Help From Other: Bathing: Little Help From Other: Toileting: None Help From Other: Don/Doff Upper Body Clothings: None Help From Other: Grooming: None Help From Other: Eating Meals: None [facility] 6 Click - Daily Activities Score: 23/24 [facility] Scoring Interpretation: Scores greater than 20.5 suggest [...] Note Bev Bobby 64 y.o. male CSN: [id number] Admission: 10/17/2024 6:21 AM Primary Problem: Critical limb ischemia of left lower extremity Corrections Nurse reviewed chart and spoke with patient to complete this Initial Case Management Assessment. PCP: Asad Vicotr MD (Inactive) - Dr. Palomo Preferred pharmacy is [facility] Emergency Contact: Extended Emergency Contact Information Primary Emergency Contact: Patti Hill Relation: Sister Certified Wellness Program Manager needed? No Insurance: Primary Visit Coverage Payer Plan Sponsor Code Group Number Group Name [facility] MEDICARE [facility] MEDICARE REPLACEMENT [id number] Primary Visit Coverage Subscriber Subscriber ID Subscriber Name Subscriber N Subscriber Address [id number] BEV BOBBY [id number] [place] [address] Secondary Visit Coverage Payer Plan Sponsor Code Group Number Group Name AEBOB [facility] MEDICAID [facility] Secondary Visit Coverage Subscriber Subscriber ID Subscriber Name Subscriber N Subscriber Address [id number] BEV BOBBY [id number] [place] [address] Patient information: Primary Caregiver: Self Daily Living Activities: Functional Status: Independent Living Arrangements: Alone Type of Residence: Private residence, Single Level [address] [place] [address] Current DME: Equipment Currently Used at Home: walker, rollator Income Information: Income Source: Retired Income/Expense Information: Income meets expenses Current Resources Utilized: Food [place] Housing Circumstances-Z Codes: Housing Circumstances (select all [...] Dialysis Services: None. Living Will/Advance Directive/Power of Infant Nanny /Guardian: Denied. Additional Comments: Patient is not medically ready for discharge. SW will continue to follow. Mariia Macedo RECRUITING COORDINATOR * Care Plan - Emilia Alonso [...] from the original note were not included. [facility] Department of Surgery Division of [...] Agree with above assessment and evaluation from resident/INSTRUMENT REPAIRER. * Op Note - Terrell Gautam MD - 10/17/2024 8:52 AM EDT Operative Note Date: 10/17/24 Location: [facility] Name: Bev Bobby, : 1960, Diagnoses: Pre-op Diagnosis Critical limb ischemia of left lower extremity Common femoral artery pseudoaneurysm Post-op Diagnosis Critical limb ischemia of left lower extremity Common femoral artery pseudoaneurysm Procedure(s): Left common/superficial/profunda femoral thromboendarterectomy with bovine patch repair Left external iliac artery/MAIL MESSENGER CONTRACTOR stent Attending Surgeon(s): * Terrell Gautam - Primary Scenic Designer(s): * Luna Beckett MD - Resident - [...] Necessity Reasons Recent surgery contiguous with urinary tract/ROAD GRADER OPERATOR/colorectal 10/17/24 190 Output (mL) 50 mL 10/18/24 08 Implants Type Name Action Serial No. VASCUGUARD 8 X 8 - [id number] Implanted STENT ENDOPROSTHESIS VIABAHN 9FR [id number] - [id number] Implanted [id number] Specimen: Specimens ID Source Frozen? 1 Other [...] and distal control. We then proceeded with yndiz-opv-lhot exposure of the popliteal artery. A medial [...] balloon dilated thestent with a 9 mm [place]. We closed the arteriotomy with a single [...] 10/17/2024 8:52 AM EDT Date: 10/17/24 Location: [facility] Name: Bev Perez Kanu, : 1960, Diagnoses: Pre-op Diagnosis Critical limb ischemia of left lower extremity Common femoral artery pseudoaneurysm Post-op Diagnosis Critical limb ischemia of left lower extremity Common femoral artery pseudoaneurysm Procedure(s): Left common/superficial/profunda femoral thromboendarterectomy with bovine patch repair Left external iliac artery/MAIL MESSENGER CONTRACTOR stent Attending Surgeon(s): * Terrell Gautam - Primary Scenic Designer(s): * Luna Beckett MD - Resident - Assisting * Dandy Baltazar MD - Fellow Anesthesia: General ASA: III Blood Administration: Blood Product Administration History None Estimated Blood Loss: 300 mL Drains: Urethral Catheter Temperature probe 16 Fr. (Active) Implants Type Name Action Serial No. VASCUGUARD 8 X 8 - [id number] Implanted STENT ENDOPROSTHESIS VIABAHN 9FR [id number] - [id number] Implanted [id number] Specimen: Specimens ID Source Frozen? 1 Other [...] issues. 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 He previouslyunderwent thrombin injection. He reports pain in his calves. He presents today for scheduled left lower extremity femoral to zjnzf-kgc-qsvt popliteal bypass. Planned likely use PTFE. He [...] 16. Results Review {Vanishing Link Review Results :[id number] I have reviewed the latest lab and imaging results. Assessment & Plan Critical limb ischemia of left lower extremity Proceed with scheduled surgery left lower extremity femoral to akubr-gan-wgpf popliteal artery bypass graft. Extensive discussion had [...] Description 11/29/2024 2:30 PM EDT Office Visit [facility] [address] [place] [phone] [place] [address] [place] [phone] Pending Results Name Type Priority Associated [...] lower extremity Pseudoaneurysm of left femoral artery ([facility]) Expected: 11/19/2024, Expires: 04/22/2026 documented as of [...] PREPARE RBC STAT 10/17/2024 8:06 AM EDT MD VEIN BYPASS GRAFT,FEM-POP 10/17/2024 7:38 AM EDT Critical limb ischemia of left lower extremity TYPE AND SCREEN Routine 10/17/2024 7:19 AM EDT POCT GLUCOSE METER UNSOLICITED RESULTS Routine 10/17/2024 6:44 AM EDT documented in this encounter Results * (ABNORMAL) POCT glucose meter (10/19/2024 11:40 AM EDT) POCT Glucose 207(H) 74 - 99 mg/dL 10/19/2024 11:42 AM EDT [facility] Comment:Accuracy of a glucos e result [...] Comment 10/19/2024 11:42 AM EDT HEALTHCARE LAB Upper And Bottom Lacer Hand ID Job Andrew 10/20/19 11:42 AM EDT HEALTHCARE LAB Device ID [id number] 10/19/2024 11:42 AM EDT HEALTHCARE LAB Specimen Type POC Capillary 10/19/2024 11:42 AM EDT [facility] Blood Capillary blood specimen / Unknown 10/19/2024 11:40 AM EDT 10/19/2024 11:42 AM EDT us Terrell Gautam MD LAB POINT OF CARE TE ST DOCKED DEVICE UNSOLICITED RESULTS Final Result Performing Organization Address [facility] Co de Phone Number [facility] [address] [place] [address] * (ABNORMAL) Protime-INR (10/19/2024 8:25 AM EDT) Prothrombin Time 17.5(H) 12.0 - 14.3 sec LAB COAGULATION METHOD 10/19/2024 9:25 AM EDT [facility] INR 1.4(H) 0.9 - 1.1 LAB COAGULATION METHOD 10/19/2024 9:25 AM EDT [facility] Blood Venous blood specimen / Unknown Venipuncture / Unknown 10/19/2024 8:25 AM EDT 10/19/2024 8:43 AM EDT Narrative [facility] - 10/19/2024 9:25 AM EDT OPTIMAL INR RANGES FOR PATIENT ON ORAL ANTICOAGULANT THERAPY Prevention of venous thromboembolism INR 2.0 to 3.0 In patients with heart disease: Atrial fibrillation INR 2.0 to 3.0 Valvular heart disease INR 2.0 to 3.0 Tissue heart valves INR 2.0 to 3.0 Mechanical prosthetic valves INR 2.5 to 3.5 Prevention of recurrent W[place] INR 2.5 to 3.5 us Nirmal Cueto MD LAB BLOOD ORDERABLES Final Result [facility] [address] [place] [address] * (ABNORMAL) Phosphorus (10/19/2024 8:25 AM EDT) Phosphorus, Plasma 2.2(L) 2.5 - 4.5 mg/dL 10/19/2024 9:12 AM EDT [facility] Blood Venous blood specimen / Unknown Venipuncture / Unknown 10/19/2024 8:25 AM EDT 10/19/2024 8:43 AM EDT Nirmal Cueto MD LAB BLOOD ORDERABLES Final Result Performing Organization Address City/[facility]/ZIP Co de Phone Number [facility] [address] [place] [address] * Magnesium (10/19/2024 8:25 AM EDT) Magnesium, Plasma 2.1 1.9 - 2.4 mg/dL 10/19/2024 9:12 AM EDT [facility] Blood Venous blood specimen / Unknown Venipuncture / Unknown 10/19/2024 8:25 AM EDT 10/19/2024 8:43 AM EDT Nirmal Cueto MD LAB BLOOD ORDERABLES Final Result Performing Organization Address City/[facility]/ZIP Co de Phone Number [facility] [address] [place] [address] * (ABNORMAL) Basic metabolic panel (10/19/2024 8:25 AM EDT) Glucose, Plasma 191(H) 74 - 99 mg/dL 10/19/2024 9:12 AM EDT [facility] BUN, Plasma 18 8 - 23 mg/dL 10/19/2024 9:12 AM EDT [facility] Creatinine, Plasma 0.76 0.70 - 1.20 mg/dL 10/19/2024 9:12 AM EDT [facility] BUN/Creatinine Ratio 24 10/19/2024 9:12 AM EDT [facility] Sodium, Plasma 135(L) 136 - 145 mmol/L 10/19/2024 9:12 AM EDT [facility] Potassium, Plasma 4.1 3.6 - 4.9 mmol/L 10/19/2024 9:12 AM EDT [facility] Chloride, Plasma 104 97 - 107 mmol/L 10/19/2024 9:12 AM EDT [facility] CO2, Plasma 22 22 - 29 mmol/L 10/19/2024 9:12 AM EDT [facility] Anion Gap 9 6 - 16 mmol/L 10/19/2024 9:12 AM EDT [facility] Total Calcium, Plasma 8.4(L) 8.9 - 10.2 mg/dL 10/19/2024 9:12 AM EDT [facility] eGFRcr 99.7 mL/min/1.7 3m*2 10/19/2024 9:12 AM EDT [facility] Comment:Reported eGFRcr in m L/min/1.73m2 is based the CKD-EPI 2020 equation that does not use a race coefficient. Blood Venous blood specimen / Unknown Venipuncture / Unknown 10/19/2024 8:25 AM EDT 10/19/2024 8:43 AM EDT us Nirmal Cueto MD LAB BLOOD ORDERABLES Final Result [facility] [address] [place] [address] * (ABNORMAL) CBC W/O Differential (10/19/2024 8:25 AM EDT) WBC Count 14.10(H) 3.70 - 10.30 10*3/uL LAB HEMATOLOGY METHOD 10/19/2024 8:52 AM EDT [facility] RBC Count 2.61(L) 4.60 - 6.10 10*6/uL LAB HEMATOLOGY METHOD 10/19/2024 8:52 AM EDT [facility] HGB 8.0(L) 13.7 - 17.5 g/dL LAB HEMATOLOGY METHOD 10/19/2024 8:52 AM EDT [facility] HCT 24.3(L) 40.0 - 51.0 % LAB HEMATOLOGY METHOD 10/19/2024 8:52 AM EDT [facility] Platelet Count 318 155 - 369 10*3/uL LAB HEMATOLOGY METHOD 10/19/2024 8:52 AM EDT [facility] MCV 93 79 - 98 fL LAB HEMATOLOGY METHOD 10/19/2024 8:52 AM EDT [facility] MCH 30.7 26.0 - 32.0 pg LAB HEMATOLOGY METHOD 10/19/2024 8:52 AM EDT [facility] MCHC 32.9 30.7 - 35.5 g/dL LAB HEMATOLOGY METHOD 10/19/2024 8:52 AM EDT [facility] RDW 13.4 11.5 - 14.5 % LAB HEMATOLOGY METHOD 10/19/2024 8:52 AM EDT [facility] MPV 9.6 8.8 - 12.5 fL LAB HEMATOLOGY METHOD 10/19/2024 8:52 AM EDT [facility] nRBC 0.0 <=0.0 per 100 WBCs LAB HEMATOLOGY METHOD 10/19/2024 8:52 AM EDT [facility] Blood Venous blood specimen / Unknown Venipuncture / Unknown 10/19/2024 8:25 AM EDT 10/19/2024 8:44 AM EDT Nirmal Cueto MD LAB BLOOD ORDERABLES Final Result [facility] [address] [place] [address] * (ABNORMAL) POCT glucose meter (10/19/2024 7:35 [...] Comment 10/19/2024 7:37 AM EDT [facility] Upper And Bottom Lacer Hand ID Kamran Job 10/20/19 7:37 AM EDT [facility] Device ID [id number] 10/19/2024 7:37 AM EDT [facility] Specimen Type POC Capillary 10/19/2024 7:37 AM EDT [facility] Blood Capillary blood specimen / Unknown 10/19/2024 7:35 AM EDT 10/19/2024 7:37 AM EDT Terrell Gautam MD LAB POINT OF CARE TE ST DOCKED DEVICE UNSOLICITED RESULTS Final Result Performing Organization Address City/[facility] Co de Phone Number [facility] [address] [place] [address] * (ABNORMAL) POCT glucose meter (10/18/2024 7:22 [...] 10/18/2024 7:24 PM EDT [facility] Upper And Bottom Lacer Hand ID Mahesh Aldana 10/18/2024 7:24 PM EDT [facility] Device ID [id number] 10/18/2024 7:24 PM EDT [facility] Specimen Type POC Capillary 10/18/2024 7:24 PM EDT [facility]ALTH[facility]ARE LAB Blood Capillary blood specimen / Unknown 10/18/2024 7:22 PM EDT 10/18/2024 7:24 PM EDT Terrell Gautam MD LAB POINT OF CARE TE ST DOCKED DEVICE UNSOLICITED RESULTS Final Result Performing Organization Address City/[facility]/ZIP Co de Phone Number [facility] [address] [place] [address] * (ABNORMAL) POCT glucose meter (10/18/2024 6:07 [...] Comment 10/18/2024 6:09 PM EDT [facility]ARE LAB Upper And Bottom Lacer Hand ID David Parks 10/18/2024 6:09 PM EDT HEALTHCARE LAB Device ID [id number] 10/18/2024 6:09 PM EDT HEALTH[facility]ARE LAB Specimen Type POC Capillary 10/18/2024 6:09 PM EDT [facility] Blood Capillary blood specimen / Unknown 10/18/2024 6:07 PM EDT 10/18/2024 6:09 PM EDT us Terrell Gautam MD LAB POINT OF CARE TE ST DOCKED DEVICE UNSOLICITED RESULTS Final Result Performing Organization Address City/State/[facility] Co de Phone Number [facility] [address] [place] [address] * (ABNORMAL) POCT glucose meter (10/18/2024 11:56 AM EDT) [facility] Signature POCT Glucose 233(H) 74 - [...] Comment 10/21/2024 7:42 AM EDT HEALTH[facility]ARE LAB Upper And Bottom Lacer Hand ID Venessa Marcano 10/21/2024 7:42 AM EDT HEALTHCARE LAB Device ID [id number] 10/21/2024 7:42 AM EDT HEALTH[facility]ARE LAB Specimen Type POC Capillary 10/21/2024 7:42 AM EDT [facility] Blood Capillary blood specimen / Unknown 10/18/2024 11:56 AM EDT 10/21/2024 7:42 AM EDT us Terrell Gautam MD LAB POINT OF CARE TE ST DOCKED DEVICE UNSOLICITED RESULTS Final Result [facility] [address] [place] [address] * (ABNORMAL) POCT glucose meter (10/18/2024 9:24 AM EDT) Pathologist [facility] POCT Glucose 322(H) 74 - 99 mg/dL [...] Comment 10/21/2024 7:42 AM EDT [facility] Upper And Bottom Lacer Hand ID Emilia Alonso 7:42 AM EDT [facility] Device ID [id number] 10/21/2024 7:42 AM EDT [facility] Specimen Type POC Venous 10/21/2024 7:42 AM EDT [facility] Blood Venous blood specimen / Unknown 10/18/2024 9:24 AM EDT 10/21/2024 7:42 AM EDT Terrell Gautam MD LAB POINT OF CARE TE ST DOCKED DEVICE UNSOLICITED RESULTS Final Result Performing Organization Address City/[facility] Co de Phone Number [facility] [address] [place] [address] * (ABNORMAL) POCT glucose meter (10/18/2024 7:36 AM EDT) [facility] POCT Glucose 215(H) 74 - 99 [...] 10/18/2024 7:38 AM EDT [facility] Upper [place] Bottom Lacer Hand ID Kizzy Godfrey 025 7:38 AM EDT HEALTHCARE LAB Device ID [id number] 10/18/2024 7:38 AM EDT [facility]ARE LAB Specimen Type POC Capillary 10/18/2024 7:38 AM EDT [facility] Blood Capillary blood specimen / Unknown 10/18/2024 7:36 AM EDT 10/18/2024 7:38 AM EDT us Terrell Gautam MD LAB POINT OF CARE TE ST DOCKED DEVICE UNSOLICITED RESULTS Final Result [facility] [address] [place] [address] * (ABNORMAL) CBC (10/18/2024 2:09 AM EDT) WBC Count 16.71(H) 3.70 - 10.30 10*3/uL LAB HEMATOLOGY METHOD 10/18/2024 2:33 AM EDT [facility] RBC Count 2.78(L) 4.60 - 6.10 10*6/uL LAB HEMATOLOGY METHOD 10/18/2024 2:33 AM EDT [facility] HGB 8.5(L) 13.7 - 17.5 g/dL LAB HEMATOLOGY METHOD 10/18/2024 2:33 AM EDT [facility] HCT 25.7(L) 40.0 - 51.0 % LAB HEMATOLOGY METHOD 10/18/2024 2:33 AM EDT [facility] Platelet Count 324 155 - 369 10*3/uL LAB HEMATOLOGY METHOD 10/18/2024 2:33 AM EDT [facility] MCV 92 79 - 98 fL LAB HEMATOLOGY METHOD 10/18/2024 2:33 AM EDT [facility] MCH 30.6 26.0 - 32.0 pg LAB HEMATOLOGY METHOD 10/18/2024 2:33 AM EDT [facility] MCHC 33.1 30.7 - 35.5 g/dL LAB HEMATOLOGY METHOD 10/18/2024 2:33 AM EDT [facility] RDW 13.3 11.5 - 14.5 % LAB HEMATOLOGY METHOD 10/18/2024 2:33 AM EDT [facility] MPV 9.4 8.8 - 12.5 fL LAB HEMATOLOGY METHOD 10/18/2024 2:33 AM EDT [facility] nRBC 0.0 <=0.0 per 100 WBCs LAB HEMATOLOGY METHOD 10/18/2024 2:33 AM EDT [facility] Blood Venous blood specimen / Unknown Venipuncture / Unknown 10/18/2024 2:09 AM EDT 10/18/2024 2:25 AM EDT us Nirmal Cueto MD LAB BLOOD ORDERABLES Final Result [facility] [address] [place] [address] * (ABNORMAL) Basic metabolic panel (10/18/2024 2:09 AM EDT) Glucose, Plasma 206(H) 74 - 99 mg/dL 10/18/2024 2:53 AM EDT [facility] BUN, Plasma 24(H) 8 - 23 mg/dL 10/18/2024 2:53 AM EDT [facility] Creatinine, Plasma 1.17 0.70 - 1.20 mg/dL 10/18/2024 2:53 AM EDT [facility] BUN/Creatinine Ratio 21 10/18/2024 2:53 AM EDT [facility] Sodium, Plasma 136 136 - 145 mmol/L 10/18/2024 2:53 AM EDT [facility] Potassium, Plasma 4.8 3.6 - 4.9 mmol/L 10/18/2024 2:53 AM EDT [facility] Chloride, Plasma 104 97 - 107 mmol/L 10/18/2024 2:53 AM EDT [facility] CO2, Plasma 22 22 - 29 mmol/L 10/18/2024 2:53 AM EDT [facility] Anion Gap 10 6 - 16 mmol/L 10/18/2024 2:53 AM EDT [facility] Total Calcium, Plasma 8.5(L) 8.9 - 10.2 mg/dL 10/18/2024 2:53 AM EDT [facility] eGFRcr 69.2 mL/min/1.7 3m*2 10/18/2024 2:53 AM EDT [facility] Comment:Reported eGFRcr in m L/min/1.73m2 is based the CKD-EPI 2020 equation that does not use a race coefficient. Blood Venous blood specimen / Unknown Venipuncture / Unknown 10/18/2024 2:09 AM EDT 10/18/2024 2:25 AM EDT Nirmal Cueto MD LAB BLOOD ORDERABLES Final Result Performing Organization Address City/[facility]/ZIP Co de Phone Number [facility] [address] [place] [address] * (ABNORMAL) Magnesium (10/18/2024 2:09 AM EDT) Magnesium, Plasma 1.8(L) 1.9 - 2.4 mg/dL 10/18/2024 2:53 AM EDT [facility] Blood Venous blood specimen / Unknown Venipuncture / Unknown 10/18/2024 2:09 AM EDT 10/18/2024 2:25 AM EDT us Nirmal Cueto MD LAB BLOOD ORDERABLES Final Result Performing Organization Address [facility] Co de Phone Number [facility] [address] [place] [address] * Phosphorus (10/18/2024 2:09 AM EDT) Phosphorus, Plasma 3.7 2.5 - 4.5 mg/dL 10/18/2024 2:53 AM EDT [facility] Blood Venous blood specimen / Unknown Venipuncture / Unknown 10/18/2024 2:09 AM EDT 10/18/2024 2:25 AM EDT us Nirmal Cueto MD LAB BLOOD ORDERABLES Final Result Performing Organization Address City/[facility]/ZIP Co de Phone Number [facility] [address] [place] [address] * (ABNORMAL) Protime-INR (10/18/2024 2:09 AM EDT) Pathologist [facility] Prothrombin Time 14.5(H) 12.0 - 14.3 sec LAB COAGULATION METHOD 10/18/2024 2:53 AM EDT [facility] INR 1.1 0.9 - 1.1 LAB COAGULATION METHOD 10/18/2024 2:53 AM EDT [facility] Blood Venous blood specimen / Unknown Venipuncture / Unknown 10/18/2024 2:09 AM EDT 10/18/2024 2:25 AM EDT [facility] - 10/18/2024 2:53 AM EDT OPTIMAL INR RANGES FOR PATIENT ON ORAL ANTICOAGULANT THERAPY Prevention of venous thromboembolism INR 2.0 to 3.0 In patients with heart disease: Atrial fibrillation INR 2.0 to 3.0 Valvular heart disease INR 2.0 to 3.0 Tissue heart valves INR 2.0 to 3.0 Mechanical prosthetic valves INR 2.5 to 3.5 Prevention of recurrent [place] INR 2.5 to 3.5 Nirmal Cueto MD LAB BLOOD ORDERABLES Final Result [facility] [address] [place] [address] * (ABNORMAL) POCT glucose meter (10/18/2024 2:08 AM EDT) [facility] POCT Glucose 202(H) 74 - 99 [...] Comment 10/18/2024 2:10 AM EDT [facility]ALTH[facility]ARE [facility] Upper And Bottom Lacer Hand ID Cornelio WALTERS Jourdan 10/18/2024 2:10 AM EDT [facility] Device ID [id number] 10/18/2024 2:10 AM EDT HEALTHCARE LAB Specimen Type POC Capillary 10/18/2024 2:10 AM EDT [facility] Blood Capillary blood specimen / Unknown 10/18/2024 2:08 AM EDT 10/18/2024 2:10 AM EDT Terrell Gautam MD LAB POINT OF CARE TE ST DOCKED DEVICE UNSOLICITED RESULTS Final Result Performing Organization Address [facility] Co de Phone Number [facility] [address] [place] [address] * (ABNORMAL) POCT glucose meter (10/17/2024 10:07 PM EDT) [facility] POCT Glucose 300(H) 74 - 99 [...] for testing. Comment 10/17/2024 10:10 PM EDT [facility] Upper And Bottom Lacer Hand ID Jourdan Grimes II 10/17/2024 10:10 PM EDT [facility] Device ID [id number] 10/17/2024 10:10 PM EDT [facility] Specimen Type POC Capillary 10/17/2024 10:10 PM EDT [facility] Blood Capillary blood specimen / Unknown 10/17/2024 10:07 PM EDT 10/17/2024 10:10 PM EDT Terrell Gautam MD LAB POINT OF CARE TE ST DOCKED DEVICE UNSOLICITED RESULTS Final Result Performing Organization Address City/[facility] Co de Phone Number [facility] [address] [place] [address] * (ABNORMAL) POCT glucose meter (10/17/2024 8:07 PM EDT) [facility] POCT Glucose 391(H) 74 - 99 mg/dL [...] Comment 10/17/2024 8:10 PM EDT [facility]ALTH[facility]ARE [facility] Upper And Bottom Lacer Hand ID Jourdan Grimes II 10/17/2024 8:10 PM EDT HEALTHCARE LAB Device ID [id number] 10/17/2024 8:10 PM EDT HEALTH[facility]ARE LAB Specimen Type POC Capillary 10/17/2024 8:10 PM EDT [facility] Blood Capillary blood specimen / Unknown 10/17/2024 8:07 PM EDT 10/17/2024 8:10 PM EDT us Terrell Gautam MD LAB POINT OF CARE TE ST DOCKED DEVICE UNSOLICITED RESULTS Final Result [facility] [address] [place] [address] * (ABNORMAL) POCT glucose meter (10/17/2024 4:01 PM EDT) [facility] POCT Glucose 249(H) 74 - 99 mg/dL [...] Comment 10/17/2024 4:03 PM EDT [facility] Upper And Bottom Lacer Hand ID Keisha Waller 10/17/2024 4:03 PM EDT HEALTHCARE LAB Device ID [id number] 10/17/2024 4:03 PM EDT [facility]ALTH[facility]ARE LAB Specimen Type POC Capillary 10/17/2024 4:03 PM EDT [facility]ARE LAB Blood Capillary blood specimen / Unknown 10/17/2024 4:01 PM EDT 10/17/2024 4:03 PM EDT us Terrell Gautam MD LAB POINT OF CARE TE ST DOCKED DEVICE UNSOLICITED RESULTS Final Result Performing Organization Address [facility] Co de Phone Number [facility] [address] [place] [address] * (ABNORMAL) POCT glucose meter (10/17/2024 1:25 PM EDT) [facility] POCT Glucose 225(H) 74 - 99 [...] 10/17/2024 1:27 PM EDT [facility] Upper And Bottom Lacer Hand ID Kizzy Godfrey 025 1:27 PM EDT HEALTH[facility]ARE LAB Device ID [id number] 10/17/2024 1:27 PM EDT [facility]ALTH[facility]ARE LAB Specimen Type POC Capillary 10/17/2024 1:27 PM EDT [facility] Blood Capillary blood specimen / Unknown 10/17/2024 1:25 PM EDT 10/17/2024 1:27 PM EDT us Terrell Gautam MD LAB POINT OF CARE TE ST DOCKED DEVICE UNSOLICITED RESULTS Final Result Performing Organization Address [facility] Co de Phone Number [facility] [address] [place] [address] * [place] Less than 1 Hour Intraoperative (10/17/2024 1:18 PM EDT) Narrative IMAGING - 10/17/2024 2:05 PM EDT Images were obtained for surgical purposes. See Terrell Gautam's surgical note in the patient's chart for the findings. us Terrell Gautam MD IMG FLUOROSCOPY PROCEDURES Fi nal Result Performing Organization Address [facility]/ZIP Co de Phone Number IMAGING * POCT ACT (10/17/2024 12:23 PM EDT) [facility] ACT+ (HIGH RANGE) 211 68 - 600 Seconds 10/29/2024 7:28 AM EDT [facility]ARE [facility] Upper And Bottom Lacer Hand ID Donna Mcmillan 10/29/2024 7:28 AM EDT [facility]ALTH[facility]ARE LAB ACT Device ID [id number] 10/29/2024 7:28 AM EDT HEALTH[facility]ARE LAB Comment 10/29/2024 7:28 AM EDT [facility] Comment: ACT performed by staff at [...] UNSOLICITED RESULTS Final Result [facility] [address] LAB [address] [place] [address] * (ABNORMAL) Blood gas, arterial (10/17/2024 11:48 AM EDT) pH, Arterial 7.34 7.31 - 7.42 LAB HEMATOLOGY METHOD 10/17/2024 11:54 AM EDT [facility] pCO2, Arterial 41 32 - 45 mmHg LAB HEMATOLOGY METHOD 10/17/2024 11:54 AM EDT [facility] pO2, Arterial 202 >80 mmHg LAB HEMATOLOGY METHOD 10/17/2024 11:54 AM EDT [facility] SO2, Measured, Arterial 100(H) 94 - 98 % LAB HEMATOLOGY METHOD 10/17/2024 11:54 AM EDT [facility] Base Excess, Arterial -3.2(L) -2.0 - 3.0 mmol/L LAB HEMATOLOGY METHOD 10/17/2024 11:54 AM EDT [facility] Bicarbonate, Calculated, Arterial 22 22 - 26 mmol/L LAB HEMATOLOGY METHOD 10/17/2024 11:54 AM EDT [facility] Hematocrit, Whole Blood 28.6(L) 40.0 - 51.0 % LAB HEMATOLOGY METHOD 10/17/2024 11:54 AM EDT [facility] Sodium, Whole Blood 137 136 - 145 mmol/L LAB HEMATOLOGY METHOD 10/17/2024 11:54 AM EDT [facility] Potassium, Whole Blood 4.5 3.6 - 4.9 mmol/L LAB HEMATOLOGY METHOD 10/17/2024 11:54 AM EDT [facility] Chloride, Whole Blood 112(H) 97 - 107 mmol/L LAB HEMATOLOGY METHOD 10/17/2024 11:54 AM EDT [facility] Glucose, Whole Blood 201(H) 74 - 99 mg/dL LAB HEMATOLOGY METHOD 10/17/2024 11:54 AM EDT [facility] Ionized Calcium, Whole Blood 4.8 4.6 - 5.1 mg/dL LAB HEMATOLOGY METHOD 10/17/2024 11:54 AM EDT [facility] Lactate, Arterial, Whole Blood 2.3(H) 0.5 - 1.6 mmol/L LAB HEMATOLOGY METHOD 10/17/2024 11:54 AM EDT [facility] Blood Arterial blood specimen / Unknown Arterial Puncture / Unknown 10/17/2024 11:48 AM EDT 10/17/2024 11:53 AM EDT us Jenna Lopez [facility] BLOOD ORDERABLES Final Re sult [facility] [address] [place] [address] * POCT ACT (10/17/2024 11:41 AM EDT) ACT+ (HIGH RANGE) 175 68 - 600 Seconds 10/29/2024 7:28 AM EDT [facility]ALTHCARE LAB Upper And Bottom Lacer Hand ID Oneyda Alicea 10/29/2024 7:28 AM EDT [facility] ACT Device ID [id number] 10/29/2024 7:28 AM EDT [facility] Comment 10/29/2024 7:28 AM EDT [facility] Comment: ACT performed by staff at [...] UNSOLICITED RESULTS Final Result Performing Organization Address [facility] de Phone Number [facility] [address] LAB [address] [place] [address] * POCT ACT (10/17/2024 11:11 AM EDT) ACT+ (HIGH RANGE) 252 68 - 600 Seconds 10/29/2024 7:28 AM EDT [facility]ALTH[facility]ARE [facility] Upper And Bottom Lacer Hand ID Donna Mcmillan 10/29/2024 7:28 AM EDT HEALTH[facility]ARE LAB ACT Device ID [id number] 10/29/2024 7:28 AM EDT HEALTH[facility]ARE LAB Comment 10/29/2024 7:28 AM EDT [facility] Comment: ACT performed by staff at [...] UNSOLICITED RESULTS Final Result Performing Organization Address [facility] de Phone Number HEALTHCARE LAB [address] LAB [address] [place] [address] * (ABNORMAL) Blood gas, arterial (10/17/2024 10:46 AM EDT) pH, Arterial 7.35 7.31 - 7.42 LAB HEMATOLOGY METHOD 10/17/2024 10:56 AM EDT [facility] pCO2, Arterial 42 32 - 45 mmHg LAB HEMATOLOGY METHOD 10/17/2024 10:56 AM EDT [facility] pO2, Arterial 161 >80 mmHg LAB HEMATOLOGY METHOD 10/17/2024 10:56 AM EDT [facility] SO2, Measured, Arterial 100(H) 94 - 98 % LAB HEMATOLOGY METHOD 10/17/2024 10:56 AM EDT [facility] Base Excess, Arterial -2.2(L) -2.0 - 3.0 mmol/L LAB HEMATOLOGY METHOD 10/17/2024 10:56 AM EDT [facility] Bicarbonate, Calculated, Arterial 23 22 - 26 mmol/L LAB HEMATOLOGY METHOD 10/17/2024 10:56 AM EDT [facility] Hematocrit, Whole Blood 29.9(L) 40.0 - 51.0 % LAB HEMATOLOGY METHOD 10/17/2024 10:56 AM EDT [facility] Sodium, Whole Blood 138 136 - 145 mmol/L LAB HEMATOLOGY METHOD 10/17/2024 10:56 AM EDT [facility] Potassium, Whole Blood 4.0 3.6 - 4.9 mmol/L LAB HEMATOLOGY METHOD 10/17/2024 10:56 AM EDT [facility] Chloride, Whole Blood 110(H) 97 - 107 mmol/L LAB HEMATOLOGY METHOD 10/17/2024 10:56 AM EDT [facility] Glucose, Whole Blood 174(H) 74 - 99 mg/dL LAB HEMATOLOGY METHOD 10/17/2024 10:56 AM EDT [facility] Ionized Calcium, Whole Blood 5.1 4.6 - 5.1 mg/dL LAB HEMATOLOGY METHOD 10/17/2024 10:56 AM EDT [facility] Lactate, Arterial, Whole Blood 1.4 0.5 - 1.6 mmol/L LAB HEMATOLOGY METHOD 10/17/2024 10:56 AM EDT [facility] Blood Arterial blood specimen / Unknown Arterial Puncture / Unknown 10/17/2024 10:46 AM EDT 10/17/2024 10:54 AM EDT us Jenna Lopez [employer] LAB BLOOD ORDERABLES Final Re sult [facility] [address] [place] [address] * POCT ACT (10/17/2024 10:37 AM EDT) ACT+ (HIGH RANGE) 206 68 - 600 Seconds 10/29/2024 7:28 AM EDT [facility] Upper And Bottom Lacer Hand ID Donna Mcmillan 10/29/2024 7:28 AM EDT [facility] ACT Device ID [id number] 10/29/2024 7:28 AM EDT HEALTHCARE LAB Comment 10/29/2024 7:28 AM EDT [facility] Comment: ACT performed by staff at [...] UNSOLICITED RESULTS Final Result Performing Organization Address City/State/[facility] Co de Phone Number HEALTHCARE LAB [address] LAB [address] [place] [address] * Surgical Pathology Exam (10/17/2024 10:27 AM EDT) Case Report Surgical Pathology Case: [id number] Authorizing Provider: Terrell Gautam MD Collected: 10/17/2024 1027 Ordering Location: [facility] OPERATING ROOM Received: 10/17/2024 1325 Pathologist: Haydee Osborne MD Specimen: Other (specify site), left common femoral plaque 10/21/2024 10:16 AM EDT [facility] Final Diagnosis A. LEFT COMMON FEMORAL PLAQUE, EXCISION: - CALCIFIED PLAQUE 10/21/2024 10:16 AM EDT [facility] at 1016 EDT Clinical Information Critical limb ischemia of left lower extremity [I70.222] 10/21/2024 10:16 AM EDT [facility] Gross Description A. LEFT COMMON FEMORAL PLAQUE Received in formalin labeled l eft common femoral plaque , is one aggregate of red-gabriel hard portions of plaque measuring 3.7 x 2.5 x 0.9 cm. The specimen is serially sectioned and payroll representative sections are submitted in cassette A1. Cold Time: <1m Kenia Pastor Yola 10/21/2024 10:16 AM EDT [facility] Note: A resident was involved in the service. I attest I examined the relevant preparations for the specimens and confirmed the diagnosis or interpretation. 10/21/2024 10:16 AM EDT [facility] Tissue Topography unknown / Unknown 10/17/2024 10:27 AM EDT 10/17/2024 1:25 PM EDT Comment:Pre-op diagnosis: Critical limb ischemia of left lower extremity [I70.222] us Terrell Gautam MD LAB PATHOLOGY ORDERABLES Gwen l Result Performing Organization Address City/[facility]/ZIP Co de Phone Number [facility] [address] [place] [address] * POCT ACT (10/17/2024 10:03 AM EDT) ACT+ (HIGH RANGE) 244 68 - 600 Seconds 10/29/2024 7:28 AM EDT HEALTHCARE LAB Upper And Bottom Lacer Hand ID Donna Mcmillan 10/29/2024 7:28 AM EDT [facility] ACT Device ID [id number] 10/29/2024 7:28 AM EDT [facility] Comment 10/29/2024 7:28 AM EDT [facility] Comment: ACT performed by staff at [...] UNSOLICITED RESULTS Final Result Performing Organization Address [facility]/ZIP Co de Phone Number [facility] [address] LAB [address] [place] [address] * (ABNORMAL) Blood gas, arterial (10/17/2024 9:45 AM EDT) pH, Arterial 7.37 7.31 - 7.42 LAB HEMATOLOGY METHOD 10/17/2024 9:55 AM EDT [facility] pCO2, Arterial 43 32 - 45 mmHg LAB HEMATOLOGY METHOD 10/17/2024 9:55 AM EDT [facility] pO2, Arterial 177 >80 mmHg LAB HEMATOLOGY METHOD 10/17/2024 9:55 AM EDT [facility] SO2, Measured, Arterial 100(H) 94 - 98 % LAB HEMATOLOGY METHOD 10/17/2024 9:55 AM EDT [facility] Base Excess, Arterial -0.5 -2.0 - 3.0 mmol/L LAB HEMATOLOGY METHOD 10/17/2024 9:55 AM EDT [facility] Bicarbonate, Calculated, Arterial 25 22 - 26 mmol/L LAB HEMATOLOGY METHOD 10/17/2024 9:55 AM EDT [facility] Hematocrit, Whole Blood 30.0(L) 40.0 - 51.0 % LAB HEMATOLOGY METHOD 10/17/2024 9:55 AM EDT [facility] Sodium, Whole Blood 137 136 - 145 mmol/L LAB HEMATOLOGY METHOD 10/17/2024 9:55 AM EDT [facility] Potassium, Whole Blood 4.3 3.6 - 4.9 mmol/L LAB HEMATOLOGY METHOD 10/17/2024 9:55 AM EDT [facility] Chloride, Whole Blood 108(H) 97 - 107 mmol/L LAB HEMATOLOGY METHOD 10/17/2024 9:55 AM EDT [facility] Glucose, Whole Blood 191(H) 74 - 99 mg/dL LAB HEMATOLOGY METHOD 10/17/2024 9:55 AM EDT [facility] Ionized Calcium, Whole Blood 5.0 4.6 - 5.1 mg/dL LAB HEMATOLOGY METHOD 10/17/2024 9:55 AM EDT [facility] Lactate, Arterial, Whole Blood 1.3 0.5 - 1.6 mmol/L LAB HEMATOLOGY METHOD 10/17/2024 9:55 AM EDT [facility] Blood Arterial blood specimen / Unknown Arterial Line / Unknown 10/17/2024 9:45 AM EDT 10/17/2024 9:52 AM EDT us Jenna Lopez INSTRUMENT REPAIRER LAB BLOOD ORDERABLES Final Re sult [facility] [address] [place] [address] * (ABNORMAL) Blood gas, arterial (10/17/2024 8:47 AM EDT) pH, Arterial 7.37 7.31 - 7.42 LAB HEMATOLOGY METHOD 10/17/2024 8:59 AM EDT [facility] pCO2, Arterial 43 32 - 45 mmHg LAB HEMATOLOGY METHOD 10/17/2024 8:59 AM EDT [facility] pO2, Arterial 205 >80 mmHg LAB HEMATOLOGY METHOD 10/17/2024 8:59 AM EDT [facility] SO2, Measured, Arterial 100(H) 94 - 98 % LAB HEMATOLOGY METHOD 10/17/2024 8:59 AM EDT [facility] Base Excess, Arterial -0.3 -2.0 - 3.0 mmol/L LAB HEMATOLOGY METHOD 10/17/2024 8:59 AM EDT [facility] Bicarbonate, Calculated, Arterial 25 22 - 26 mmol/L LAB HEMATOLOGY METHOD 10/17/2024 8:59 AM EDT [facility] Hematocrit, Whole Blood 31.3(L) 40.0 - 51.0 % LAB HEMATOLOGY METHOD 10/17/2024 8:59 AM EDT [facility] Sodium, Whole Blood 138 136 - 145 mmol/L LAB HEMATOLOGY METHOD 10/17/2024 8:59 AM EDT [facility] Potassium, Whole Blood 4.0 3.6 - 4.9 mmol/L LAB HEMATOLOGY METHOD 10/17/2024 8:59 AM EDT [facility] Chloride, Whole Blood 108(H) 97 - 107 mmol/L LAB HEMATOLOGY METHOD 10/17/2024 8:59 AM EDT [facility] Glucose, Whole Blood 162(H) 74 - 99 mg/dL LAB HEMATOLOGY METHOD 10/17/2024 8:59 AM EDT [facility] Ionized Calcium, Whole Blood 5.2(H) 4.6 - 5.1 mg/dL LAB HEMATOLOGY METHOD 10/17/2024 8:59 AM EDT [facility] Lactate, Arterial, Whole Blood 1.7(H) 0.5 - 1.6 mmol/L LAB HEMATOLOGY METHOD 10/17/2024 8:59 AM EDT [facility] Blood Arterial blood specimen / Unknown Arterial Puncture / Unknown 10/17/2024 8:47 AM EDT 10/17/2024 8:58 AM EDT us Jenna Lopez CRNA LAB BLOOD ORDERABLES Final Re sult [facility] [address] [place] [address] * POCT ACT (10/17/2024 8:46 AM EDT) ACT+ (HIGH RANGE) 101 68 - 600 Seconds 10/29/2024 7:28 AM EDT [facility] Upper And Bottom Lacer Hand ID Donna Mcmillan 10/29/2024 7:28 AM EDT [facility] ACT Device ID [id number] 10/29/2024 7:28 AM EDT [facility]ALTH[facility] LAB Comment 10/29/2024 7:28 AM EDT [facility] Comment: ACT performed by staff at [...] ST DOCKED DEVICE UNSOLICITED RESULTS Final Result [facility] [address] LAB [address] [place] [address] * Type and Screen (10/17/2024 7:19 AM [...] ORDERAB LES Final Result Performing Organization Address City/[facility]/ZIP Co de Phone Number BLOOD BANK [address] [place] [address], * (ABNORMAL) POCT glucose meter (10/17/2024 6:44 [...] 10/17/2024 6:49 AM EDT [facility] Upper And Bottom Lacer Hand ID Hunter Burroughs 10/18/19 6:49 AM EDT [facility]ALTH[facility] LAB Device ID [id number] 10/17/2024 6:49 AM EDT [facility]ALTH[facility] LAB Specimen Type POC Capillary 10/17/2024 6:49 AM EDT [facility] LAB Blood Capillary blood specimen / Unknown 10/17/2024 6:44 AM EDT 10/17/2024 6:49 AM EDT us Terrell Gautam MD LAB POINT OF CARE TE ST DOCKED DEVICE UNSOLICITED RESULTS Final Result [facility] [address] [place] [address] documented in this encounter Visit Diagnoses Diagnosis [...] Unit(Inpatient) 1414 (Not Given - Provider: Keisha Wallre RN - Reason: NPO)1610 (Given - Provider: [...] at 1030, Routine 1003 (Given - Provider: Eimlia Alonso RN) lidocaine (Lidoderm) 5 % patch [...] 10 141 (Given - Provider: Keisha Waller, CHIRSTIAN) ceFAZolin (Ancef) 1 g in sodium chloride [...] documented as of this encounter Care Teams Junior Engineer Relationship Specialty Start Date End Date Asad Victor MD [address] [place] [id number] PCP - General 10/07/22 documented as of this encounter
--- OUTSIDE RECORDS SUMMARY | 2024-10-17 07:51 | XMS_ITS | Encounter Summary ---
Author Organization [facility] [place] Address [address] [id number] Care Team Providers Care Account Financial Manager Name Role Phone Asad Victor MD Primary Care Provider + [phone] Reason for Visit * Auth/Cert (Routine) Specialty Diagnoses / Procedures Referred By Contac t Referred To Contact Diagnoses Critical limb ischemia of left lower extremity Critical limb ischemia of left lower extremity [I70.222] Procedures FL VEIN BYPASS GRAFT,FEM-POP CREATION, BYPASS, ARTERIAL, FEMORAL TO POPLITEAL Terrell Gautam MD [address] [facility] [address] [place] [address] Phone: tel: fax: PAV A OPERATING ROOM [address] [place] [address] Phone: tel: Referral ID Status Reason Start Date Expiration Date Visits Re quested Visits Authorized [id number] 1 1 Encounter Details Date Type Department Care Team (Late st Contact Info) Description 10/17/2024 7:51 AM EDT Anesthesia Event P[facility] A OPERATING ROOM [address] [place] [phone] Maria Fernanda Mccallum MD [address] [place] [address] Anesthesia Record Procedure Summary Procedure [...] Hand; Site Prep: Chlorhexidine ; Local Anesth: [place]; Technique: Anatomical landmarks; Inserted by: CHRISTIAN Acuna; [...] any time in the past 12 m [facility], were you homeless or living in a fdc (including now)? No 10/18/2024 CAGE ASSESSMENT Answer [...] drink first t dino in the morning (EYE-ROCKET ASSEMBLY OPERATOR) to steady your nerves or to [...] * Anesthesia Postprocedure Evaluation - Jenna Lopez, SERVICE CONSULTANT - 10/17/2024 1:29 PM EDT Patient: Mono [...] by Swetha Villareal MD Staffing Performed: ISH SERVICE CONSULTANT: Jenna Lopez CRNA * Anesthesia Procedure Notes - Jenna Lopez CRNA - 10/17/2024 9:00 AM EDT Associated Order(s): Airway Airway Date/Time: 10/17/2024 8:03 AM Reason: elective Airway not difficult General Information and Staff Patient location during procedure: OR SERVICE CONSULTANT: Jenna Lopez CRNA Performed: SERVICE CONSULTANT Patient Condition Indications for airway management: anesthesia [...] CEA 2016 + 3rd degree AV block HOTEL SALES MANAGER-P placed 08/2023 for Wenkeback with 11 sec pause + HLD + HTN - controlled + PAD 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 CORONARY ANGIOPLASTY Left Coronary Angiography With Concomitant Left Heart Catheterization from [facility] ??? CORONARY ARTERY BYPASS GRAFT N/A 2018 [...] Description 11/29/2024 2:30 PM EDT Office Visit [facility] [address] [place] [address] Oscar Appiah MD [address] [address] documented as of this encounter [...] ANESTHESIA PLACEHOLDER Routine 10/17/2024 8:03 AM EDT FL AN ELECTIVE ENDOTRACHEAL AIRWAY Routine 10/17/2024 8:03 [...] NON-TIMED PROCEDURE PLACEHOLDER (10/17/2024 8:25 AM EDT) Jenan Martinez CRNA - 10/17/2024 8:25 AM EDT [...] Performed by Swetha Villareal MD Staffing Performed: SERVICE CONSULTANT SERVICE CONSULTANT: Jenna Lopez CRNA Maria Fernanda Mccallum MD ANESTHESIA ORDERABLES Edite d Result - Final * [place] AN ELECTIVE ENDOTRACHEAL AIRWAY, PB ANESTHESIA PLACEHOLDER (10/17/2024 8:03 AM EDT) Jenna Martinez CRNA - 10/17/2024 8:03 AM EDT Jenna Lopez CRNA 10/17/2024 9:00 AM Airway Date/Time: 10/17/2024 8:03 AM Reason: elective Airway not difficult General Information and Staff Patient location during procedure: OR SERVICE CONSULTANT: Jenna Lopez CRNA Performed: SERVICE CONSULTANT Patient Condition Indications for airway management: anesthesia [...] Mccallum MD ANESTHESIA ORDERABLES Final Result * [facility] AN POCUS CARDIAC PROCDOC (10/17/2024 7:18 AM EDT) Narrative Maria Fernanda Mccallum MD - 10/17/2024 7:18 AM EDT Maria Fernanda Mccalulm MD 10/17/2024 7:19 AM POC Ultrasound - [...] Trace AR. The images were Saved in [employer]. The study was technically adequate. [...] documented as of this encounter Care Teams Account Financial Manager Relationship Specialty Start Date End Date Asad Victor MD [address] [place] [address] PCP - General 10/07/22 documented as of this encounter
--- OUTSIDE RECORDS SUMMARY | 2024-10-17 08:00 | XMS_ITS | Encounter Summary ---
Author Organization [facility] Address [address] [place] [address] Care Team Providers Care Rv Repairer Name Role Phone Asad Victor MD Primary Care Provider + [phone] Reason for Visit * Auth/Cert (Routine) Specialty Diagnoses / Procedures Referred By Contac t Referred To Contact Diagnoses Critical limb ischemia of left lower extremity Critical limb ischemia of left lower extremity [I70.222] Procedures NC VEIN BYPASS GRAFT,FEM-POP CREATION, BYPASS, ARTERIAL, FEMORAL TO POPLITEAL Terrell Gautam MD [address] [address] Phone: tel: fax: [facility] [address] [place] [address] Phone: tel: Referral ID Status Reason Start Date Expiration Date Visits Re quested Visits Authorized [id number] 1 1 Encounter Details Date Type Department Care Team (Late st Contact Info) Description 10/17/2024 8:00 AM EDT - 10/17/2024 2:50 PM EDT Surgery [facility] [address] [place] [address] Terrell Gautam MD [address] [address] CREATION, BYPASS, ARTERIAL, FEMORAL TO POPLITEAL [22064 (CPT )] Surgery Details Date/Time Status Location OR Service Patient Class Case Class Case Type Trauma Case? 10/17/2024 8:00 AM Posted [facility] 09 Vascular Surgery Surgery Admit E-Electi ve Panel 1 Procedure LRB Anes Op Region Wound Class Comments CREATION, BYPASS, ARTERIAL, FEMORAL TO POPLITEAL Left General Leg Upper Class I/ Clean Surgeon Surgeon Role Service Panel Terrell Gautam MD Primary Vascular Surgery 1 Terrell Gautam MD Primary Vascular Surgery 1 Dandy Baltazar MD Fellow 1 Luna Beckett MD Resident - Assisting 1 documented in this encounter Social History Tobacco [...] time in the past [address] [facility], were you homeless or living in [...] drink first t dino in the morning (EYE-WOUND CARE TECHNICIAN) to steady your nerves or to get rid of a hangover? 0 10/18/2021 CAGE Questionnaire Score 0 022 Utilities Answer Date Recorded In the past 12 months has th e Cloudy Days, gas, oil, or water Qello threatened to shut off services in your home? No 10/18/2024 Sex and Gender Information Value Date Recorded Sex Assigned at Not on file Legal Sex Male 8:57 PM EDT Gender Identity Not on file Sexual Orientation Not on file documented as of this encounter Last Filed Vital Signs Vital Sign Reading Time Taken Comments Blood Pressure 141/65 10/17/2024 2:45 PM EDT Pulse 69 10/17/2024 2:45 PM EDT Temperature 36.6 C (97.9 F) 10/17/2024 2:45 PM EDT Respiratory Rate 16 10/17/2024 2:45 PM EDT Oxygen Saturation 98% 10/17/2024 2:45 PM EDT Inhaled Oxygen Concentration - - Weight 93.4 kg (205 lb 14.6 oz) 10/17/2024 1:20 PM EDT Height 170.2 cm (5' 7.01 ) 10/17/2024 1:20 PM ED T Body Mass Index 32.1 10/17/2024 1:20 PM EDT documented in this encounter Discharge Instructions * Discharge Instructions* [...] up to 15 doses. 15 tablet 10/19/2024 documented as of this encounter Miscellaneous Notes * Care Plan - Keyla Chow - 10/19/2024 11:46 AM EDT Problem: Adult Inpatient Plan of Care Goal: Plan of Care Review 10/19/2024 1145 by Keyla Chow Outcome: Met Flowsheets Taken [...] Identify and Manage Fall Risk Flowsheets (Taken 10/18/2024 2030 by Kassie Mao, RN) Safety Promotion/Fall Prevention: [...] provided Taken 10/17/20242107 by Jourdan Grimes II, fine jewelry sales associate Review/Management: medications reviewed Problem: Skin Injury Risk [...] Ongoing, Progressing Intervention: Promote Activity and Functional Ralls Flowsheets (Taken 10/19/2024 1048) Self-Care Promotion: BADL personal objects within reach meal set-up provided * Yuni Ramires - Keyla Chow - 10/19/2024 11:45 AM EDT Images from the original note were not included. [id number] After Peripheral Artery Bypass Surgery: In the [...] home. Last Reviewed Date: 2023 00:00:00 ?? [id number] [employer]. All rights reserved. This information is not intended as a substitute for professional medical care. Always follow your healthcare professional's instructions. * Progress Notes - Emelina Friend - 10/19/2024 11:44 AM EDT Case Management Adult Progress Note Bev Bobby 64 y.o. male CSN: [id number] Admission: 10/17/2024 6:21 AM Primary Problem: Critical [...] if any other needs arise. Emelina Friend DROP WORKER, MEAT PULLER Social Work Case Management * Yuni Ramires - Keyla Chow - 10/19/2024 11:44 AM EDT Images from the original note were not included. [id number] Peripheral Artery Disease (PAD) Peripheral artery disease [...] cause. Last Reviewed Date: 2024 00:00:00 ?? [id number] [employer]. All rights reserved. This information is not intended as a substitute for professional medical care. Always follow your healthcare professional's instructions. * Yuni Ramires - Keyla Chow - 10/19/2024 11:44 AM EDT Images from the original note were not included. [id number] Leg Artery Emergencies: Critical Limb Ischemia (CLI) [...] Other common tests include: ? Ankle-brachial index (ISL). The blood pressure in your ankle is [...] appointments. Last Reviewed Date: 2023 00:00:00 ?? [id number] [employer]. All rights reserved. This information is not intended as a substitute for professional medical care. Always follow your healthcare professional's instructions. * Discharge Summary - Dandy Baltazar MD - 10/19/2024 11:31 AM EDT Hospitalization Admit Date/Time: 10/17/2024 6:21 AM Admitting Attending: Terrell Gautam Discharge Date: 10/19/24 Discharge Attending Physician: Nirmal Cueto MD PCP name and Address: Asad Victor MD (Inactive) [address] [facility] [address] Referring provider name and address: Timothy Marques PA [address] [place] [address] Chief Concern, Brief History of Present Illness, and Hospital Course Bev Bobby is an 64 y.o. 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 He [...] Your Medications These medications were sent to [facility] [place], [place] - [address] [facility] 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 He [...] VTE (Venous Thromboembolism) Risk Flowsheets (Taken 10/19/2024 104) VTE Prevention/Management: bilateral SCDs (sequential compression devices) off education provided patient refused intervention Goal: Optimal Comfort and Wellbeing Outcome: Ongoing, Progressing Goal: Readiness for Transition of Care Outcome: Ongoing, Progressing Problem: Fall Injury Risk Goal: Absence of Fall and Fall-Related Injury Outcome: Ongoing, Progressing Intervention: Identify and Manage Contributors Flowsheets Taken 10/19/20241047 by Keyla Chow Self-Care Promotion: BADL personal objects within reach meal set-up provided Taken 10/17/20242107 by Jourdan Grimes II fine jewelry sales associate Review/Management: medications reviewed Problem: Skin Injury Risk [...] Ongoing, Progressing Intervention: Promote Activity and Functional Ralls Flowsheets (Taken 10/19/2024 1048) Self-Care Promotion: BADL [...] evaluation. PARTICIPANTS IN CARE Visitors Present No Palm Gatherer (if applicable) PRESENTATION Oxygen Oxygen Therapy: None [...] Level of Mobility Ambulatory- household only Mobility Ralls Independent gait with device (rollator) History of [...] numbness in rodney) BED MOBILITY Level of Ralls Physical/Non- physical Assist Adaptive Equipment Utilized Rolling/ Turning Scooting/ Bridging Modified independence (anteriorly to EOB) Bed rails Supine to Sit Modified Ralls (to the right) (HOB flat) Bed rails Sit to Supine Interventions HOB flat to simulate home environment TRANSFERS Level of Ralls Physical/Non- physical Assist Adaptive Equipment Utilized Sit [...] stable surfaces during transitions. AMBULATION Level of Ralls Distance Adaptive Equipment Utilized Ambulation Standby assist, [...] Posture: Forward head, Rounded shoulders Level of Ralls Balance Support Interventions Static Sit Independent Right [...] Assessments Standardized Assessments: AMPA 6-Clicks Mobility Assessment [facility] 6-Clicks Mobility Assessment Difficulty patient has [...] 3-5 steps with a railing?: A little [facility] 6-Clicks Mobility Assessment Total : 22 [...] evaluation/session. Participants in Care Family/Caregiver Present: No Palm Gatherer: Not Applicable Presentation Oxygen Therapy: None (Room [...] Level of Mobility: Ambulatory- household only Mobility Ralls: Independent gait with device (rollator) History of [...] Mobility Bed Mobility Exam: Scooting/Bridging Level of Ralls: Modified independence (anteriorly to EOB) Assistive Device: Bed rails Bed Mobility Exam: Supine to Sit Level of Ralls: Modified Ralls (to the right) Physical/Nonphysical Assist: (HOB flat) Assistive Device: Bed rails Transfers Transfer Exam: Sit to stand Level of Ralls: Stand-by assist Physical/Nonphysical Assist: Supervision, Verbal Cues, Minimal cues Assistive Device: Walker, rolling Transfer Exam: Stand to Sit Level of Ralls: Stand-by assist Physical/Nonphysical Assist: Supervision, Verbal Cues, [...] UE Dressing Interventions: OT provided set-up/SBA to adirán additional gown over back like robe. Lower [...] safety and success. Patient is currently ad lias in room per RN and reported no concerns regarding toileting at this time. Standardized Assessments [facility] 6-Click Daily Activities Help from Other: Don/Doff Regular Lower Body Clothings: None Help From Other: Bathing: Little Help From Other: Toileting: None Help From Other: Don/Doff Upper Body Clothings: None Help From Other: Grooming: None Help From Other: Eating Meals: None [facility] 6 Click - Daily Activities Score: 23/24 [facility] Scoring Interpretation: Scores greater than 20.5 [...] Ongoing, Progressing * Progress Notes - Mariia Monterroso - 10/18/2024 11:19 AM EDT Case Management Adult Initial Progress Note Bev Bobby 64 y.o. male CSN: [id number] Admission: 10/17/2024 6:21 AM Primary Problem: Critical limb ischemia of left lower extremity Landscape Gardener reviewed chart and spoke with patient to complete this Initial Case Management Assessment. PCP: Asad Victor MD (Inactive) - Dr. Palomo Preferred pharmacy is [facility] Emergency Contact: Extended Emergency Contact Information Primary Emergency Contact: Patti Hill Relation: Sister Palm Gatherer needed? No Insurance: Primary Visit Coverage Payer Plan Sponsor Code Group Number Group Name [facility] MEDICARE [facility] MEDICARE REPLACEMENT [id number] Primary Visit Coverage Subscriber Subscriber ID Subscriber Name Subscriber [facility] Subscriber Address [id number] BEV BOBBY [id number] [place] [address] Secondary Visit Coverage Payer Plan Sponsor Code Group Number Group Name [facility] Secondary Visit Coverage Subscriber Subscriber ID Subscriber Name Subscriber [facility] Subscriber Address [id number] BEV BOBBY [id number] [place] [address] Patient information: Primary Caregiver: Self Daily Living Activities: Functional Status: Independent Living Arrangements: Alone Type of Residence: Private residence, Single Level [address] [place] [address] Current DME: Equipment Currently Used at Home: joy monterroso Income Information: Income Source: Retired Income/Expense Information: Income meets expenses Current Resources Utilized: Food [place] Housing Circumstances-Z Codes: Housing Circumstances (select all [...] Dialysis Services: None. Living Will/Advance Directive/Power of Parts Processor /Guardian: Denied. Additional Comments: Patient is not medically ready for discharge. SW will continue to follow. Mariia Monterroso MEAT PULLER * Care Plan - Emilia Alonso RN [...] from the original note were not included. [facility] Department of Surgery Division of [...] Ongoing, Progressing Flowsheets (Taken 10/17/2024 1424 by Dowdy, Keisha G, RN) Plan of Care Reviewed With: patient Goal: Patient-Specific Goal (Individualized) Outcome: Ongoing, Progressing Flowsheets (Taken 10/17/20241899) Patient/Family-Specific Goals (Include Timeframe): pt will get adequate rest during the night Individualized Care Needs: safety Anxieties, Fears or Concerns: none state Goal: Absence of Hospital-Acquired Illness or Injury Outcome: Ongoing, Progressing Intervention: Identify and Manage Fall Risk Flowsheets (Taken 10/17/20242107) Safety Promotion/Fall Prevention: activity supervised assistive device/personal items within [facility] fall prevention program maintained lighting adjusted clutter-free [...] Agree with above assessment and evaluation from resident/PACKAGE DYEING MACHINE OPERATOR. * Op Note - Terrell Gautam MD - 10/17/2024 8:52 AM EDT Operative Note Date: 10/17/24 Location: [facility] Name: Bev Bobby, : 1960, Diagnoses: Pre-op Diagnosis Critical limb ischemia of left lower extremity Common femoral artery pseudoaneurysm Post-op Diagnosis Critical limb ischemia of left lower extremity Common femoral artery pseudoaneurysm Procedure(s): Left common/superficial/profunda femoral thromboendarterectomy with bovine patch repair Left external iliac artery/DOOR BUILDER stent Attending Surgeon(s): * Terrell Gautam - Primary Spot Welder Line(s): * Luna Beckett MD - Resident - [...] CAUTI: Urinary Catheter Necessity Yes, meets criteria 10/17/241899 CAUTI: Urinary Catheter Necessity Reasons Recent surgery contiguous with urinary tract/RESOURCING ADVISOR/colorectal 10/17/24 190 Output (mL) 50 mL 10/18/24 08 Implants Type Name Action Serial No. VASCUGUARD 8 X 8 - [id number] Implanted STENT ENDOPROSTHESIS VIABAHN 9FR [id number] - [id number] Implanted [id number] Specimen: Specimens ID Source Frozen? 1 Other [...] and distal control. We then proceeded with owton-oxy-ammf exposure of the popliteal artery. A medial [...] balloon dilated thestent with a 9 mm [place]. We closed the arteriotomy with a single [...] 10/17/2024 8:52 AM EDT Date: 10/17/24 Location: [facility] Name: Bev Bobby, : 1960, Diagnoses: Pre-op Diagnosis Critical limb ischemia of left lower extremity Common femoral artery pseudoaneurysm Post-op Diagnosis Critical limb ischemia of left lower extremity Common femoral artery pseudoaneurysm Procedure(s): Left common/superficial/profunda femoral thromboendarterectomy with bovine patch repair Left external iliac artery/DOOR BUILDER stent Attending Surgeon(s): * Terrell Gautam - Primary Spot Welder Line(s): * Luna Beckett MD - Resident - Assisting * Dandy Baltazar MD - Fellow Anesthesia: General ASA: III Blood Administration: Blood Product Administration History None Estimated Blood Loss: 300 mL Drains: Urethral Catheter Temperature probe 16 Fr. (Active) Implants Type Name Action Serial No. VASCUGUARD 8 X 8 - [id number] Implanted STENT ENDOPROSTHESIS VIABAHN 9FR [id number] - [id number] Implanted [id number] Specimen: Specimens ID Source Frozen? 1 Other [...] issues. 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 He previouslyunderwent thrombin injection. He reports pain in his calves. He presents today for scheduled left lower extremity femoral to [id number] popliteal bypass. Planned likely use PTFE. He [...] 16. Results Review {Vanishing Link Review Results :[id number] I have reviewed the latest lab and imaging results. Assessment & Plan Critical limb ischemia of left lower extremity Proceed with scheduled surgery left lower extremity femoral to [id number] popliteal artery bypass graft. Extensive discussion had [...] Description 11/29/2024 2:30 PM EDT Office Visit [facility] [address] [place] [address] [phone] Oscar Appiah MD [address] [facility] [address] [place] [address] Pending Results Name Type Priority [...] PREPARE RBC STAT 10/17/2024 8:06 AM EDT NC VEIN BYPASS GRAFT,FEM-POP 10/17/2024 7:38 AM EDT Critical limb ischemia of left lower extremity TYPE AND SCREEN Routine 10/17/2024 7:19 AM EDT POCT GLUCOSE METER UNSOLICITED RESULTS Routine 10/17/2024 6:44 AM EDT documented in this encounter Results * (ABNORMAL) POCT glucose meter (10/19/2024 11:40 AM EDT) POCT Glucose 207(H) 74 - 99 mg/dL 10/19/2024 11:42 AM EDT [facility] Comment:Accuracy of a glucos e [...] for testing. Comment 10/19/2024 11:42 AM EDT [facility] Clinical Medical Assistant ID KamranJob gallardo 10/20/19 11:42 AM EDT [email or web address] Device ID [id number] 10/19/2024 11:42 AM EDT [facility] Specimen Type POC Capillary 10/19/2024 11:42 AM EDT [facility] Blood Capillary blood specimen / Unknown 10/19/2024 11:40 AM EDT 10/19/2024 11:42 AM EDT us Terrell Gautam MD LAB POINT OF CARE TE ST DOCKED DEVICE UNSOLICITED RESULTS Final Result Performing Organization Address [facility] Co de Phone Number [facility] [address] [place] [address] * (ABNORMAL) Protime-INR (10/19/2024 8:25 AM EDT) Prothrombin Time 17.5(H) 12.0 - 14.3 sec LAB COAGULATION METHOD 10/19/2024 9:25 AM EDT [facility] INR 1.4(H) 0.9 - 1.1 LAB COAGULATION METHOD 10/19/2024 9:25 AM EDT [facility] Blood Venous blood specimen / Unknown Venipuncture / Unknown 10/19/2024 8:25 AM EDT 10/19/2024 8:43 AM EDT Narrative [facility] - 10/19/2024 9:25 AM EDT OPTIMAL INR RANGES FOR PATIENT ON ORAL ANTICOAGULANT THERAPY Prevention of venous thromboembolism INR 2.0 to 3.0 In patients with heart disease: Atrial fibrillation INR 2.0 to 3.0 Valvular heart disease INR 2.0 to 3.0 Tissue heart valves INR 2.0 to 3.0 Mechanical prosthetic valves INR 2.5 to 3.5 Prevention of recurrent KS INR 2.5 to 3.5 us Nirmal Cueto MD LAB BLOOD ORDERABLES Final Result [facility] [address] [place] [address] * (ABNORMAL) Phosphorus (10/19/2024 8:25 AM EDT) Phosphorus, Plasma 2.2(L) 2.5 - 4.5 mg/dL 10/19/2024 9:12 AM EDT [facility] Blood Venous blood specimen / Unknown Venipuncture / Unknown 10/19/2024 8:25 AM EDT 10/19/2024 8:43 AM EDT us Nirmal Cueto MD LAB BLOOD ORDERABLES Final Result [facility] [address] [place] [address] * Magnesium (10/19/2024 8:25 AM EDT) Magnesium, Plasma 2.1 1.9 - 2.4 mg/dL 10/19/2024 9:12 AM EDT [facility] Blood Venous blood specimen / Unknown Venipuncture / Unknown 10/19/2024 8:25 AM EDT 10/19/2024 8:43 AM EDT us Nirmal Cueto MD LAB BLOOD ORDERABLES Final Result Performing Organization Address [facility] Co de Phone Number [facility] [address] [place] [address] * (ABNORMAL) Basic metabolic panel (10/19/2024 8:25 AM EDT) Glucose, Plasma 191(H) 74 - 99 mg/dL 10/19/2024 9:12 AM EDT [facility] BUN, Plasma 18 8 - 23 mg/dL 10/19/2024 9:12 AM EDT [facility] Creatinine, Plasma 0.76 0.70 - 1.20 mg/dL 10/19/2024 9:12 AM EDT [facility] BUN/Creatinine Ratio 24 10/19/2024 9:12 AM EDT [facility] Sodium, Plasma 135(L) 136 - 145 mmol/L 10/19/2024 9:12 AM EDT [facility] Potassium, Plasma 4.1 3.6 - 4.9 mmol/L 10/19/2024 9:12 AM EDT [facility] Chloride, Plasma 104 97 - 107 mmol/L 10/19/2024 9:12 AM EDT [facility] CO2, Plasma 22 22 - 29 mmol/L 10/19/2024 9:12 AM EDT [facility] Anion Gap 9 6 - 16 mmol/L 10/19/2024 9:12 AM EDT [facility] Total Calcium, Plasma 8.4(L) 8.9 - 10.2 mg/dL 10/19/2024 9:12 AM EDT [facility] eGFRcr 99.7 mL/min/1.7 3m*2 10/19/2024 9:12 AM EDT [facility] Comment:Reported eGFRcr in m L/min/1.73m2 is based the CKD-EPI 2020 equation that does not use a race coefficient. Blood Venous blood specimen / Unknown Venipuncture / Unknown 10/19/2024 8:25 AM EDT 10/19/2024 8:43 AM EDT us Nirmal Cueto MD LAB BLOOD ORDERABLES Final Result [facility] [address] [place] [address] * (ABNORMAL) CBC W/O Differential (10/19/2024 8:25 AM EDT) WBC Count 14.10(H) 3.70 - 10.30 10*3/uL LAB HEMATOLOGY METHOD 10/19/2024 8:52 AM EDT [facility] RBC Count 2.61(L) 4.60 - 6.10 10*6/uL LAB HEMATOLOGY METHOD 10/19/2024 8:52 AM EDT [facility] HGB 8.0(L) 13.7 - 17.5 g/dL LAB HEMATOLOGY METHOD 10/19/2024 8:52 AM EDT [facility] HCT 24.3(L) 40.0 - 51.0 % LAB HEMATOLOGY METHOD 10/19/2024 8:52 AM EDT [facility] Platelet Count 318 155 - 369 10*3/uL LAB HEMATOLOGY METHOD 10/19/2024 8:52 AM EDT [facility] MCV 93 79 - 98 fL LAB HEMATOLOGY METHOD 10/19/2024 8:52 AM EDT [facility] MCH 30.7 26.0 - 32.0 pg LAB HEMATOLOGY METHOD 10/19/2024 8:52 AM EDT [facility] MCHC 32.9 30.7 - 35.5 g/dL LAB HEMATOLOGY METHOD 10/19/2024 8:52 AM EDT [facility] RDW 13.4 11.5 - 14.5 % LAB HEMATOLOGY METHOD 10/19/2024 8:52 AM EDT [facility] MPV 9.6 8.8 - 12.5 fL LAB HEMATOLOGY METHOD 10/19/2024 8:52 AM EDT [facility] nRBC 0.0 <=0.0 per 100 WBCs LAB HEMATOLOGY METHOD 10/19/2024 8:52 AM EDT [facility] Blood Venous blood specimen / Unknown Venipuncture / Unknown 10/19/2024 8:25 AM EDT 10/19/2024 8:44 AM EDT us Nirmal Cueto MD LAB BLOOD ORDERABLES Final Result [facility] [address] [place] [address] * (ABNORMAL) POCT glucose meter (10/19/2024 7:35 AM EDT) [facility] Signature POCT Glucose 187(H) 74 - 99 mg/dL [...] Comment 10/19/2024 7:37 AM EDT [facility] Clinical Medical Assistant ID KamranJob 10/20/19 7:37 AM EDT [facility] Device ID [id number] 10/19/2024 7:37 AM EDT [facility] Specimen Type POC Capillary 10/19/2024 7:37 AM EDT [facility] Blood Capillary blood specimen / Unknown 10/19/2024 7:35 AM EDT 10/19/2024 7:37 AM EDT us Terrell Gautam MD LAB POINT OF CARE TE ST DOCKED DEVICE UNSOLICITED RESULTS Final Result Performing Organization Address City/[facility] Co de Phone Number [facility] [address] [place] [address] * (ABNORMAL) POCT glucose meter (10/18/2024 7:22 PM EDT) [facility] POCT Glucose 178(H) 74 - 99 [...] Comment 10/18/2024 7:24 PM EDT [facility] Clinical Medical Assistant ID Mahesh Aldana 10/18/2024 7:24 PM EDT [facility] Device ID [id number] 10/18/2024 7:24 PM EDT [facility] Specimen Type POC Capillary 10/18/2024 7:24 PM EDT [facility] Blood Capillary blood specimen / Unknown 10/18/2024 7:22 PM EDT 10/18/2024 7:24 PM EDT Terrell Gautam MD LAB POINT OF CARE TE ST DOCKED DEVICE UNSOLICITED RESULTS Final Result Performing Organization Address [facility] Co de Phone Number [facility] [address] [place] [address] * (ABNORMAL) POCT glucose meter (10/18/2024 6:07 PM EDT) [facility] POCT Glucose 167(H) 74 - 99 [...] for testing. Comment 10/18/2024 6:09 PM EDT [facility] Clinical Medical Assistant ID David Parks 10/18/2024 6:09 PM EDT [facility] Device ID [id number] 10/18/2024 6:09 PM EDT [facility] Specimen Type POC Capillary 10/18/2024 6:09 PM EDT [facility] Blood Capillary blood specimen / Unknown 10/18/2024 6:07 PM EDT 10/18/2024 6:09 PM EDT Terrell Gautam MD LAB POINT OF CARE TE ST DOCKED DEVICE UNSOLICITED RESULTS Final Result Performing Organization Address City/[facility] Co de Phone Number [facility] [address] [place] [address] * (ABNORMAL) POCT glucose meter (10/18/2024 11:56 AM EDT) [facility] POCT Glucose 233(H) 74 - 99 [...] 10/21/2024 7:42 AM EDT [facility] Clinical Medical Assistant ID Venessa Marcano 10/21/2024 7:42 AM EDT [facility] Device ID [id number] 10/21/2024 7:42 AM EDT [facility] Specimen Type POC Capillary 10/21/2024 7:42 AM EDT [facility] Blood Capillary blood specimen / Unknown 10/18/2024 11:56 AM EDT 10/21/2024 7:42 AM EDT us Terrell Gautam MD LAB POINT OF CARE TE ST DOCKED DEVICE UNSOLICITED RESULTS Final Result Performing Organization Address City/[facility]/ZIP Co de Phone Number [facility] [address] [place] [address] * (ABNORMAL) POCT glucose meter (10/18/2024 9:24 AM EDT) Pathologist [facility] POCT Glucose 322(H) 74 - 99 mg/dL [...] Comment 10/21/2024 7:42 AM EDT [facility]ALTHCARE [facility] Clinical Medical Assistant ID Emilia Alonso 7:42 AM EDT [facility]ALTHCARE LAB Device ID [id number] 10/21/2024 7:42 AM EDT [facility]ALTH[facility]ARE [facility] Specimen Type POC Venous 10/21/2024 7:42 AM EDT [facility] Blood Venous blood specimen / Unknown 10/18/2024 9:24 AM EDT 10/21/2024 7:42 AM EDT Terrell Gautam MD LAB POINT OF CARE TE ST DOCKED DEVICE UNSOLICITED RESULTS Final Result [facility] [address] [place] [address] * (ABNORMAL) POCT glucose meter (10/18/2024 7:36 AM EDT) [facility] POCT Glucose 215(H) 74 - 99 [...] Comment 10/18/2024 7:38 AM EDT [facility]ALTH[facility]ARE [facility] Clinical Medical Assistant ID Kizzy Godfrey 025 7:38 AM EDT [facility]ALTH[facility]ARE [facility] Device ID [id number] 10/18/2024 7:38 AM EDT [facility]ALTH[facility]ARE [facility] Specimen Type POC Capillary 10/18/2024 7:38 AM EDT [facility] Blood Capillary blood specimen / Unknown 10/18/2024 7:36 AM EDT 10/18/2024 7:38 AM EDT us Terrell Gautam MD LAB POINT OF CARE TE ST DOCKED DEVICE UNSOLICITED RESULTS Final Result [facility] [address] [place] [address] * (ABNORMAL) CBC (10/18/2024 2:09 AM EDT) WBC Count 16.71(H) 3.70 - 10.30 10*3/uL LAB HEMATOLOGY METHOD 10/18/2024 2:33 AM EDT [facility] RBC Count 2.78(L) 4.60 - 6.10 10*6/uL LAB HEMATOLOGY METHOD 10/18/2024 2:33 AM EDT [facility] HGB 8.5(L) 13.7 - 17.5 g/dL LAB HEMATOLOGY METHOD 10/18/2024 2:33 AM EDT [facility] HCT 25.7(L) 40.0 - 51.0 % LAB HEMATOLOGY METHOD 10/18/2024 2:33 AM EDT [facility] Platelet Count 324 155 - 369 10*3/uL LAB HEMATOLOGY METHOD 10/18/2024 2:33 AM EDT [facility] MCV 92 79 - 98 fL LAB HEMATOLOGY METHOD 10/18/2024 2:33 AM EDT [facility] MCH 30.6 26.0 - 32.0 pg LAB HEMATOLOGY METHOD 10/18/2024 2:33 AM EDT [facility] MCHC 33.1 30.7 - 35.5 g/dL LAB HEMATOLOGY METHOD 10/18/2024 2:33 AM EDT [facility] RDW 13.3 11.5 - 14.5 % LAB HEMATOLOGY METHOD 10/18/2024 2:33 AM EDT [facility] MPV 9.4 8.8 - 12.5 fL LAB HEMATOLOGY METHOD 10/18/2024 2:33 AM EDT [facility] nRBC 0.0 <=0.0 per 100 WBCs LAB HEMATOLOGY METHOD 10/18/2024 2:33 AM EDT [facility] Blood Venous blood specimen / Unknown Venipuncture / Unknown 10/18/2024 2:09 AM EDT 10/18/2024 2:25 AM EDT Nirmal Cueto MD LAB BLOOD ORDERABLES Final Result [facility] [address] [place] [address] * (ABNORMAL) Basic metabolic panel (10/18/2024 2:09 AM EDT) Pathologist [facility] Glucose, Plasma 206(H) 74 - 99 mg/dL 10/18/2024 2:53 AM EDT [facility] BUN, Plasma 24(H) 8 - 23 mg/dL 10/18/2024 2:53 AM EDT [facility] Creatinine, Plasma 1.17 0.70 - 1.20 mg/dL 10/18/2024 2:53 AM EDT [facility] BUN/Creatinine Ratio 21 10/18/2024 2:53 AM EDT [facility] Sodium, Plasma 136 136 - 145 mmol/L 10/18/2024 2:53 AM EDT [facility] Potassium, Plasma 4.8 3.6 - 4.9 mmol/L 10/18/2024 2:53 AM EDT [facility] Chloride, Plasma 104 97 - 107 mmol/L 10/18/2024 2:53 AM EDT [facility] CO2, Plasma 22 22 - 29 mmol/L 10/18/2024 2:53 AM EDT [facility] Anion Gap 10 6 - 16 mmol/L 10/18/2024 2:53 AM EDT [facility] Total Calcium, Plasma 8.5(L) 8.9 - 10.2 mg/dL 10/18/2024 2:53 AM EDT [facility] eGFRcr 69.2 mL/min/1.7 3m*2 10/18/2024 2:53 AM EDT [facility] Comment:Reported eGFRcr in m L/min/1.73m2 is based the CKD-EPI 2020 equation that does not use a race coefficient. Blood Venous blood specimen / Unknown Venipuncture / Unknown 10/18/2024 2:09 AM EDT 10/18/2024 2:25 AM EDT us Nirmal Cueto MD LAB BLOOD ORDERABLES Final Result Performing Organization Address [facility] Co de Phone Number [facility] [address] [place] [address] * (ABNORMAL) Magnesium (10/18/2024 2:09 AM EDT) Magnesium, Plasma 1.8(L) 1.9 - 2.4 mg/dL 10/18/2024 2:53 AM EDT [facility] Blood Venous blood specimen / Unknown Venipuncture / Unknown 10/18/2024 2:09 AM EDT 10/18/2024 2:25 AM EDT us Nirmal Cueto MD LAB BLOOD ORDERABLES Final Result Performing Organization Address [facility] Phone Number [facility] [address] [place] [address] * Phosphorus (10/18/2024 2:09 AM EDT) Phosphorus, Plasma 3.7 2.5 - 4.5 mg/dL 10/18/2024 2:53 AM EDT [facility] Blood Venous blood specimen / Unknown Venipuncture / Unknown 10/18/2024 2:09 AM EDT 10/18/2024 2:25 AM EDT us Nirmal Cueto MD LAB BLOOD ORDERABLES Final Result Performing Organization Address [facility] Co de Phone Number [facility] [address] [place] [address] * (ABNORMAL) Protime-INR (10/18/2024 2:09 AM EDT) Prothrombin Time 14.5(H) 12.0 - 14.3 sec LAB COAGULATION METHOD 10/18/2024 2:53 AM EDT [facility] INR 1.1 0.9 - 1.1 LAB COAGULATION METHOD 10/18/2024 2:53 AM EDT [facility] Blood Venous blood specimen / Unknown Venipuncture / Unknown 10/18/2024 2:09 AM EDT 10/18/2024 2:25 AM EDT Narrative [facility] - 10/18/2024 2:53 AM EDT OPTIMAL INR RANGES FOR PATIENT ON ORAL ANTICOAGULANT THERAPY Prevention of venous thromboembolism INR 2.0 to 3.0 In patients with heart disease: Atrial fibrillation INR 2.0 to 3.0 Valvular heart disease INR 2.0 to 3.0 Tissue heart valves INR 2.0 to 3.0 Mechanical prosthetic valves INR 2.5 to 3.5 Prevention of recurrent KS INR 2.5 to 3.5 us Nirmal Cueto MD LAB BLOOD ORDERABLES Final Result [facility] [address] [place] [address] * (ABNORMAL) POCT glucose meter (10/18/2024 2:08 AM EDT) [facility] POCT Glucose 202(H) 74 - 99 [...] Comment 10/18/2024 2:10 AM EDT [facility]ALTH[facility] Clinical Medical Assistant ID Jourdan Grimes II 10/18/2024 2:10 AM EDT [facility]ALTH[facility]ARE LAB Device ID [id number] 10/18/2024 2:10 AM EDT [facility]ALTHCARE LAB Specimen Type POC Capillary 10/18/2024 2:10 AM EDT [facility] Blood Capillary blood specimen / Unknown 10/18/2024 2:08 AM EDT 10/18/2024 2:10 AM EDT us Terrell Gautam MD LAB POINT OF CARE TE ST DOCKED DEVICE UNSOLICITED RESULTS Final Result [facility] [address] [place] [address] * (ABNORMAL) POCT glucose meter (10/17/2024 10:07 PM EDT) [facility] POCT Glucose 300(H) 74 - 99 [...] Comment 10/17/2024 10:10 PM EDT HEALTHCARE LAB Clinical Medical Assistant ID Sukhjinder Grimes IIneth 10/17/2024 10:10 PM EDT [facility] Device ID [id number] 10/17/2024 10:10 PM EDT [facility] Specimen Type POC Capillary 10/17/2024 10:10 PM EDT [facility] Blood Capillary blood specimen / Unknown 10/17/2024 10:07 PM EDT 10/17/2024 10:10 PM EDT Terrell Gautam MD LAB POINT OF CARE TE ST DOCKED DEVICE UNSOLICITED RESULTS Final Result [facility] [address] [place] [address] * (ABNORMAL) POCT glucose meter (10/17/2024 8:07 PM EDT) [facility] POCT Glucose 391(H) 74 - 99 [...] for testing. Comment 10/17/2024 8:10 PM EDT [facility] Clinical Medical Assistant ID Sukhjinder Grimes IIneth 10/17/2024 8:10 PM EDT [facility] Device ID [id number] 10/17/2024 8:10 PM EDT [facility]ALTH[facility]ARE LAB Specimen Type POC Capillary 10/17/2024 8:10 PM EDT [facility] Blood Capillary blood specimen / Unknown 10/17/2024 8:07 PM EDT 10/17/2024 8:10 PM EDT Terrell Gautam MD LAB POINT OF CARE TE ST DOCKED DEVICE UNSOLICITED RESULTS Final Result Performing Organization Address [facility] Co de Phone Number [facility] [address] [place] [address] * (ABNORMAL) POCT glucose meter (10/17/2024 4:01 [...] 10/17/2024 4:03 PM EDT [facility] Clinical Medical Assistant ID Keisha Waller 10/17/2024 4:03 PM EDT HEALTHCARE LAB Device ID [id number] 10/17/2024 4:03 PM EDT [facility]ALTH[facility]ARE [facility] Specimen Type POC Capillary 10/17/2024 4:03 PM EDT [facility] Blood Capillary blood specimen / Unknown 10/17/2024 4:01 PM EDT 10/17/2024 4:03 PM EDT us Terrell Gautam MD LAB POINT OF CARE TE ST DOCKED DEVICE UNSOLICITED RESULTS Final Result Performing Organization Address [facility] Co de Phone Number [facility] [address] [place] [address] * (ABNORMAL) POCT glucose meter (10/17/2024 1:25 PM EDT) POCT Glucose 225(H) 74 - 99 mg/dL [...] 10/17/2024 1:27 PM EDT [facility] Clinical Medical Assistant ID Kizzy Godfrey 025 1:27 PM EDT [facility]ARE [facility] Device ID [id number] 10/17/2024 1:27 PM EDT [facility]ARE [facility] Specimen Type POC Capillary 10/17/2024 1:27 PM EDT [facility] Blood Capillary blood specimen / Unknown 10/17/2024 1:25 PM EDT 10/17/2024 1:27 PM EDT Terrell Gautam MD LAB POINT OF CARE TE ST DOCKED DEVICE UNSOLICITED RESULTS Final Result Performing Organization Address City/[facility]/ZIP Co de Phone Number [facility] [address] [place] [address] * [place] Less than 1 Hour Intraoperative (10/17/2024 1:18 PM EDT) Narrative IMAGING - 10/17/2024 2:05 PM EDT Images were obtained for surgical purposes. See Terrell Gautam's surgical note in the patient's chart for the findings. Terrell Gautam MD IMG FLUOROSCOPY PROCEDURES Fi nal Result Performing Organization Address City/[facility] Co de Phone Number IMAGING * POCT ACT (10/17/2024 12:23 PM EDT) ACT+ (HIGH RANGE) 211 68 - 600 Seconds 10/29/2024 7:28 AM EDT [facility]ALTH[facility]ARE [facility] Clinical Medical Assistant ID Donna Mcmillan 10/29/2024 7:28 AM EDT [facility] ACT Device ID [id number] 10/29/2024 7:28 AM EDT [facility]ALTH[facility]ARE [facility] Comment 10/29/2024 7:28 AM EDT [facility] Comment: ACT performed by staff [...] DOCKED DEVICE UNSOLICITED RESULTS Final Result [facility] [address] LAB [address] [place] [address] * (ABNORMAL) Blood gas, arterial (10/17/2024 11:48 AM EDT) pH, Arterial 7.34 7.31 - 7.42 LAB HEMATOLOGY METHOD 10/17/2024 11:54 AM EDT [facility] pCO2, Arterial 41 32 - 45 mmHg LAB HEMATOLOGY METHOD 10/17/2024 11:54 AM EDT [facility] pO2, Arterial 202 >80 mmHg LAB HEMATOLOGY METHOD 10/17/2024 11:54 AM EDT [facility] SO2, Measured, Arterial 100(H) 94 - 98 % LAB HEMATOLOGY METHOD 10/17/2024 11:54 AM EDT [facility] Base Excess, Arterial -3.2(L) -2.0 - 3.0 mmol/L LAB HEMATOLOGY METHOD 10/17/2024 11:54 AM EDT [facility] Bicarbonate, Calculated, Arterial 22 22 - 26 mmol/L LAB HEMATOLOGY METHOD 10/17/2024 11:54 AM EDT [facility] Hematocrit, Whole Blood 28.6(L) 40.0 - 51.0 % LAB HEMATOLOGY METHOD 10/17/2024 11:54 AM EDT [facility] Sodium, Whole Blood 137 136 - 145 mmol/L LAB HEMATOLOGY METHOD 10/17/2024 11:54 AM EDT [facility] Potassium, Whole Blood 4.5 3.6 - 4.9 mmol/L LAB HEMATOLOGY METHOD 10/17/2024 11:54 AM EDT [facility] Chloride, Whole Blood 112(H) 97 - 107 mmol/L LAB HEMATOLOGY METHOD 10/17/2024 11:54 AM EDT [facility] Glucose, Whole Blood 201(H) 74 - 99 mg/dL LAB HEMATOLOGY METHOD 10/17/2024 11:54 AM EDT [facility] Ionized Calcium, Whole Blood 4.8 4.6 - 5.1 mg/dL LAB HEMATOLOGY METHOD 10/17/2024 11:54 AM EDT [facility] Lactate, Arterial, Whole Blood 2.3(H) 0.5 - 1.6 mmol/L LAB HEMATOLOGY METHOD 10/17/2024 11:54 AM EDT [facility] Blood Arterial blood specimen / Unknown Arterial Puncture / Unknown 10/17/2024 11:48 AM EDT 10/17/2024 11:53 AM EDT us Jenna Lopez CRNA LAB BLOOD ORDERABLES Final Re sult [facility] [address] [place] [address] * POCT ACT (10/17/2024 11:41 AM EDT) ACT+ (HIGH RANGE) 175 68 - 600 Seconds 10/29/2024 7:28 AM EDT HEALTHCARE LAB Clinical Medical Assistant ID Oneyda Alicea 10/29/2024 7:28 AM EDT [facility] ACT Device ID [id number] 10/29/2024 7:28 AM EDT HEALTHCARE LAB Comment 10/29/2024 7:28 AM EDT [facility] Comment: ACT performed by staff [...] RESULTS Final Result [facility] [address] LAB [address] [place] [address] * POCT ACT (10/17/2024 11:11 AM EDT) [facility] ACT+ (HIGH RANGE) 252 68 - 600 Seconds 10/29/2024 7:28 AM EDT HEALTHCARE LAB Clinical Medical Assistant ID Donna Mcmillan 10/29/2024 7:28 AM EDT [facility]ALTH[facility]ARE [facility] ACT Device ID [id number] 10/29/2024 7:28 AM EDT [facility]ALTH[facility]ARE LAB Comment 10/29/2024 7:28 AM EDT [facility] Comment: ACT performed by staff [...] DEVICE UNSOLICITED RESULTS Final Result [facility] [address] [place] [address] [place] [address] * (ABNORMAL) Blood gas, arterial (10/17/2024 10:46 AM EDT) Pathologist [facility] pH, Arterial 7.35 7.31 - 7.42 LAB HEMATOLOGY METHOD 10/17/2024 10:56 AM EDT [facility] pCO2, Arterial 42 32 - 45 mmHg LAB HEMATOLOGY METHOD 10/17/2024 10:56 AM EDT [facility] pO2, Arterial 161 >80 mmHg LAB HEMATOLOGY METHOD 10/17/2024 10:56 AM EDT [facility] SO2, Measured, Arterial 100(H) 94 - 98 % LAB HEMATOLOGY METHOD 10/17/2024 10:56 AM EDT [facility] Base Excess, Arterial -2.2(L) -2.0 - 3.0 mmol/L LAB HEMATOLOGY METHOD 10/17/2024 10:56 AM EDT [facility] Bicarbonate, Calculated, Arterial 23 22 - 26 mmol/L LAB HEMATOLOGY METHOD 10/17/2024 10:56 AM EDT [facility] Hematocrit, Whole Blood 29.9(L) 40.0 - 51.0 % LAB HEMATOLOGY METHOD 10/17/2024 10:56 AM EDT [facility] Sodium, Whole Blood 138 136 - 145 mmol/L LAB HEMATOLOGY METHOD 10/17/2024 10:56 AM EDT [facility] Potassium, Whole Blood 4.0 3.6 - 4.9 mmol/L LAB HEMATOLOGY METHOD 10/17/2024 10:56 AM EDT [facility] Chloride, Whole Blood 110(H) 97 - 107 mmol/L LAB HEMATOLOGY METHOD 10/17/2024 10:56 AM EDT [facility] Glucose, Whole Blood 174(H) 74 - 99 mg/dL LAB HEMATOLOGY METHOD 10/17/2024 10:56 AM EDT [facility] Ionized Calcium, Whole Blood 5.1 4.6 - 5.1 mg/dL LAB HEMATOLOGY METHOD 10/17/2024 10:56 AM EDT [facility] Lactate, Arterial, Whole Blood 1.4 0.5 - 1.6 mmol/L LAB HEMATOLOGY METHOD 10/17/2024 10:56 AM EDT [facility] Blood Arterial blood specimen / Unknown Arterial Puncture / Unknown 10/17/2024 10:46 AM EDT 10/17/2024 10:54 AM EDT us Jenna Lpoez PACKAGE DYEING MACHINE OPERATOR LAB BLOOD ORDERABLES Final Re sult [facility] [address] [place] [address] * POCT ACT (10/17/2024 10:37 AM EDT) ACT+ (HIGH RANGE) 206 68 - 600 Seconds 10/29/2024 7:28 AM EDT HEALTHCARE LAB Clinical Medical Assistant ID Mcmillan Donna Maya 10/29/2024 7:28 AM EDT [facility] ACT Device ID [id number] 10/29/2024 7:28 AM EDT [facility]ALTHCARE LAB Comment 10/29/2024 7:28 AM EDT [facility] Comment: ACT performed by staff [...] DOCKED DEVICE UNSOLICITED RESULTS Final Result [facility] [address] [place] [address] * Surgical Pathology Exam (10/17/2024 10:27 AM EDT) Case Report Surgical Pathology Case: [id number] Authorizing Provider: Terrell Gautam MD Collected: 10/17/2024 1027 Ordering Location: [facility] A OPERATING RO[facility] Received: 10/17/2024 1325 Pathologist: Haydee Osborne MD Specimen: Other (specify site), left common femoral plaque 10/21/2024 10:16 AM EDT [facility] Final Diagnosis A. LEFT COMMON FEMORAL PLAQUE, EXCISION: - CALCIFIED PLAQUE 10/21/2024 10:16 AM EDT [facility] at 1016 EDT Clinical Information Critical limb ischemia of left lower extremity [I70.222] 10/21/2024 10:16 AM EDT [facility] Gross Description A. LEFT COMMON FEMORAL PLAQUE Received in formalin labeled l eft common femoral plaque , is one aggregate of red-gabriel hard portions of plaque measuring 3.7 x 2.5 x 0.9 cm. The specimen is serially sectioned and textiles sales representative sections are submitted in cassette A1. Cold Time: <1m Kenia Aceves 10/21/2024 10:16 AM EDT [facility] Note: A resident was involved in the service. I attest I examined the relevant preparations for the specimens and confirmed the diagnosis or interpretation. 10/21/2024 10:16 AM EDT [facility] Tissue Topography unknown / Unknown 10/17/2024 10:27 AM EDT 10/17/2024 1:25 PM EDT Comment:Pre-op diagnosis: Critical limb ischemia of left lower extremity [I70.222] Terrell Gautam MD LAB PATHOLOGY ORDERABLES Gwen l Result Performing Organization Address City/[facility]/ZIP Co de Phone Number [facility] [address] [place] [address] * POCT ACT (10/17/2024 10:03 AM EDT) ACT+ (HIGH RANGE) 244 68 - 600 Seconds 10/29/2024 7:28 AM EDT HEALTHCARE LAB Clinical Medical Assistant ID Donna Mcmillan 10/29/2024 7:28 AM EDT [facility] ACT Device ID [id number] 10/29/2024 7:28 AM EDT HEALTHCARE LAB Comment 10/29/2024 7:28 AM EDT [facility] Comment: ACT performed by staff [...] 10:03 AM EDT 10/29/2024 7:28 AM EDT Terrell Gautam MD LAB POINT OF CARE TE ST DOCKED DEVICE UNSOLICITED RESULTS Final Result Performing Organization Address City/[facility]/ZIP Co de Phone Number HEALTHCARE LAB [address] LAB [address] [place] [address] * (ABNORMAL) Blood gas, arterial (10/17/2024 9:45 AM EDT) pH, Arterial 7.37 7.31 - 7.42 LAB HEMATOLOGY METHOD 10/17/2024 9:55 AM EDT [facility] pCO2, Arterial 43 32 - 45 mmHg LAB HEMATOLOGY METHOD 10/17/2024 9:55 AM EDT [facility] pO2, Arterial 177 >80 mmHg LAB HEMATOLOGY METHOD 10/17/2024 9:55 AM EDT [facility] SO2, Measured, Arterial 100(H) 94 - 98 % LAB HEMATOLOGY METHOD 10/17/2024 9:55 AM EDT [facility] Base Excess, Arterial -0.5 -2.0 - 3.0 mmol/L LAB HEMATOLOGY METHOD 10/17/2024 9:55 AM EDT [facility] Bicarbonate, Calculated, Arterial 25 22 - 26 mmol/L LAB HEMATOLOGY METHOD 10/17/2024 9:55 AM EDT [facility] Hematocrit, Whole Blood 30.0(L) 40.0 - 51.0 % LAB HEMATOLOGY METHOD 10/17/2024 9:55 AM EDT [facility] Sodium, Whole Blood 137 136 - 145 mmol/L LAB HEMATOLOGY METHOD 10/17/2024 9:55 AM EDT [facility] Potassium, Whole Blood 4.3 3.6 - 4.9 mmol/L LAB HEMATOLOGY METHOD 10/17/2024 9:55 AM EDT [facility] Chloride, Whole Blood 108(H) 97 - 107 mmol/L LAB HEMATOLOGY METHOD 10/17/2024 9:55 AM EDT [facility] Glucose, Whole Blood 191(H) 74 - 99 mg/dL LAB HEMATOLOGY METHOD 10/17/2024 9:55 AM EDT [facility] Ionized Calcium, Whole Blood 5.0 4.6 - 5.1 mg/dL LAB HEMATOLOGY METHOD 10/17/2024 9:55 AM EDT [facility] Lactate, Arterial, Whole Blood 1.3 0.5 - 1.6 mmol/L LAB HEMATOLOGY METHOD 10/17/2024 9:55 AM EDT [facility] Blood Arterial blood specimen / Unknown Arterial Line / Unknown 10/17/2024 9:45 AM EDT 10/17/2024 9:52 AM EDT us Jenna Lopez CRNA LAB BLOOD ORDERABLES Final Re sult [facility] [address] [place] [address] * (ABNORMAL) Blood gas, arterial (10/17/2024 8:47 AM EDT) pH, Arterial 7.37 7.31 - 7.42 LAB HEMATOLOGY METHOD 10/17/2024 8:59 AM EDT [facility] pCO2, Arterial 43 32 - 45 mmHg LAB HEMATOLOGY METHOD 10/17/2024 8:59 AM EDT [facility] pO2, Arterial 205 >80 mmHg LAB HEMATOLOGY METHOD 10/17/2024 8:59 AM EDT [facility] SO2, Measured, Arterial 100(H) 94 - 98 % LAB HEMATOLOGY METHOD 10/17/2024 8:59 AM EDT [facility] Base Excess, Arterial -0.3 -2.0 - 3.0 mmol/L LAB HEMATOLOGY METHOD 10/17/2024 8:59 AM EDT [facility] Bicarbonate, Calculated, Arterial 25 22 - 26 mmol/L LAB HEMATOLOGY METHOD 10/17/2024 8:59 AM EDT [facility] Hematocrit, Whole Blood 31.3(L) 40.0 - 51.0 % LAB HEMATOLOGY METHOD 10/17/2024 8:59 AM EDT [facility] Sodium, Whole Blood 138 136 - 145 mmol/L LAB HEMATOLOGY METHOD 10/17/2024 8:59 AM EDT [facility] Potassium, Whole Blood 4.0 3.6 - 4.9 mmol/L LAB HEMATOLOGY METHOD 10/17/2024 8:59 AM EDT [facility] Chloride, Whole Blood 108(H) 97 - 107 mmol/L LAB HEMATOLOGY METHOD 10/17/2024 8:59 AM EDT [facility] Glucose, Whole Blood 162(H) 74 - 99 mg/dL LAB HEMATOLOGY METHOD 10/17/2024 8:59 AM EDT [facility] Ionized Calcium, Whole Blood 5.2(H) 4.6 - 5.1 mg/dL LAB HEMATOLOGY METHOD 10/17/2024 8:59 AM EDT [facility] Lactate, Arterial, Whole Blood 1.7(H) 0.5 - 1.6 mmol/L LAB HEMATOLOGY METHOD 10/17/2024 8:59 AM EDT [facility] Blood Arterial blood specimen / Unknown Arterial Puncture / Unknown 10/17/2024 8:47 AM EDT 10/17/2024 8:58 AM EDT us Jenna Lopez CRNA LAB BLOOD ORDERABLES Final Re sult Performing Organization Address City/[facility]/ZIP Co de Phone Number [facility] [address] [place] [address] * POCT ACT (10/17/2024 8:46 AM EDT) ACT+ (HIGH RANGE) 101 68 - 600 Seconds 10/29/2024 7:28 AM EDT [facility] Clinical Medical Assistant ID Donna Mcmillan 10/29/2024 7:28 AM EDT [facility] ACT Device ID [id number] 10/29/2024 7:28 AM EDT [facility]ALTH[facility] LAB Comment 10/29/2024 7:28 AM EDT [facility] Comment: ACT performed by staff [...] UNSOLICITED RESULTS Final Result Performing Organization Address [facility] Co de Phone Number [facility] [address] LAB [address] [place] [address] * Type and Screen (10/17/2024 7:19 AM [...] ORDERAB LES Final Result Performing Organization Address [facility] Co de Phone Number BLOOD BANK [address] [place] [address], * (ABNORMAL) POCT glucose meter (10/17/2024 6:44 AM EDT) POCT Glucose 178(H) 74 - 99 mg/dL 10/17/2024 6:49 AM EDT [facility] Comment:Accuracy of a glucos e result [...] for testing. Comment 10/17/2024 6:49 AM EDT [facility] Clinical Medical Assistant ID Hunter Burroughs 10/18/19 6:49 AM EDT [facility] Device ID [id number] 10/17/2024 6:49 AM EDT [facility] Specimen Type POC Capillary 10/17/2024 6:49 AM EDT [facility] Blood Capillary blood specimen / Unknown 10/17/2024 6:44 AM EDT 10/17/2024 6:49 AM EDT us Terrell Gautam MD LAB POINT OF CARE TE ST DOCKED DEVICE UNSOLICITED RESULTS Final Result Performing Organization Address [facility] Co de Phone Number [facility] [address] [place], [id number] documented in this encounter Visit Diagnoses Diagnosis [...] Oral, Every 8 hours, First dose on Mon10/17/24 at 1400, Until Discontinued, Routine, Recovery(Phase II-Outpatient)/On Unit(Inpatient) Given 10/17/2024 9:03 PM EDT 1,000 mg ceFAZolin (Ancef) 1 g in sodium chloride 0.9 % 1,010 mL irrigation Continuous PRN, Starting on Yadira 10/17/24 at 0830, Until Yadira 10/17/24 at 1317, Routine New Bag 10/17/2024 8:30 AM EDT clopidogrel (Plavix) tablet 75 mg 75 mg, [...] Given 10/18/2024 8:01 AM EDT 100 mg heparin (porcine) 10,000 Units in sodium chloride 0.9 % 1,010 mL OR irrigation Continuous PRN, Starting on Yadira 10/17/24 at 0831, Until Yadira 10/17/24 at 1317, Routine New Bag 10/17/2024 8:31 AM EDT hydrALAZINE (Apresoline) injection 10 mg 10 mg, Intravenous, Every 6 hours PRN, Starting on 10/19/24 at 0418, Until 10/19/24 at 1439, Routine, high blood pressure, For SBP > 180 and HR < 70 insulin glargine-yfgn 100 UNIT/ML injection 28 Units 28 Units, Subcutaneous, Nightly, First dose on Yadira 10/17/24 at 2215, Until Discontinued, Routine Given 10/18/2024 [...] ight Upper Arm (Back) insulin lispro (Admelog) injection - Correction - Nighttime Dose 0-3 Units, Subcutaneous, 2 times nightly (2100 & 0300), First dose on Mon10/18/24 at 2100, Until Discontinued, Routine labetalol (Normodyne,Trandate) injection 20 mg 20 mg, [...] Given 10/18/2024 12:04 PM EDT 5 mg metoprolol tartrate (Lopressor) tablet 100 mg [...] Given 10/18/2024 4:44 AM EDT 5 mg pravastatin (Pravachol) tablet 40 mg 40 mg, [...] Given 10/18/2024 8:01 AM EDT 2 mg tamsulosin (Flomax) 24 hr capsule 0.4 mg 0.4 mg, Oral, Every evening, First dose on Mon10/17/24 at 1700, Until Discontinued, Routine, Recovery(Phase II-Outpatient)/On [...] Waller RN)2012 (Given - Provider: Jourdan Grimes II, RN) 0801 (Given - Provider: Emilia Alonso, RN)2001 [...] (Given - Provider: Jourdan Grimes II, CHRISTIAN) 07 (Canceled Entry - Provider: Emilia Alonso, CHRISTIAN) tamsulosin (Flomax) 24 hr capsule 0.4 mg 0.4 mg, Oral, Every evening, First dose on Mon10/17/24 at 1700, Until Discontinued, Routine, Recovery(Phase II-Outpatient)/On Unit(Inpatient) 1656 (Given - Provider: Keisha Waller, RN) 1744 [...] pain 1856 (Given - Provider: Keisha Waller, RN)2302 (Given - Provider: Jourdan Grimes II, RN) [...] documented as of this encounter Care Teams Rv Repairer Relationship Specialty Start Date End Date Asad Victor MD [address] [place] [address] PCP - General 10/07/22 documented as of this encounter
--- OUTSIDE RECORDS SUMMARY | 2024-11-05 21:45 | XMS_ITS | Encounter Summary ---
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 11/13/2024 6:51 AM EDT [facility] RDW 13.6 11.5 - 14.5 % LAB HEMATOLOGY METHOD 11/13/2024 6:51 AM EDT [facility] MPV 8.9 8.8 - 12.5 fL LAB HEMATOLOGY METHOD 11/13/2024 6:51 AM EDT [facility] nRBC 0.0 <=0.0 per 100 WBCs LAB HEMATOLOGY METHOD 11/13/2024 6:51 AM EDT [facility] Blood Venous blood specimen / Unknown Venipuncture / Unknown 11/13/2024 6:37 AM EDT 11/13/2024 6:44 AM EDT us Nathaly Nowak MD LAB BLOOD ORDERABLES Final Resu lt [facility] [address] [place] [address] * (ABNORMAL) Basic Metabolic Panel, Plasma (11/13/2024 6:37 AM EDT) Glucose, Plasma 200(H) 74 - 99 mg/dL 11/13/2024 7:16 AM EDT [facility] BUN, Plasma 10 8 - 23 mg/dL 11/13/2024 7:16 AM EDT [facility] Creatinine, Plasma 0.68(L) 0.70 - 1.20 mg/dL 11/13/2024 7:16 AM EDT [facility] BUN/Creatinine Ratio 15 11/13/2024 7:16 AM EDT [facility] Sodium, Plasma 135(L) 136 - 145 mmol/L 11/13/2024 7:16 AM EDT [facility] Potassium, Plasma 3.9 3.6 - 4.9 mmol/L 11/13/2024 7:16 AM EDT [facility] Chloride, Plasma 107 97 - 107 mmol/L 11/13/2024 7:16 AM EDT [facility] CO2, Plasma 21(L) 22 - 29 mmol/L 11/13/2024 7:16 AM EDT [facility] Anion Gap 7 6 - 16 mmol/L 11/13/2024 7:16 AM EDT [facility] Total Calcium, Plasma 8.1(L) 8.9 - 10.2 mg/dL 11/13/2024 7:16 AM EDT [facility] eGFRcr 103.2 mL/min/1.7 3m*2 11/13/2024 7:16 AM EDT [facility] Comment:Reported eGFRcr in m L/min/1.73m2 is based the CKD-EPI 2020 equation that does not use a race coefficient. Blood Venous blood specimen / Unknown Venipuncture / Unknown 11/13/2024 6:37 AM EDT 11/13/2024 6:44 AM EDT us Nathaly Nowak MD LAB BLOOD ORDERABLES Final Resu lt [facility] [address] [place] [address] * (ABNORMAL) POCT glucose meter (11/12/2024 8:27 PM EDT) [facility] POCT Glucose 175(H) 74 - 99 mg/dL [...] Comment 11/12/2024 8:29 PM EDT [facility] Worker ID Zabrina Nelda Chris 11/13/19 8:29 PM EDT [facility] Device ID [id number] 11/12/2024 8:29 PM EDT [facility] Specimen Type POC Capillary 11/12/2024 8:29 PM EDT [facility] Blood Capillary blood specimen / Unknown 11/12/2024 8:27 PM EDT 11/12/2024 8:29 PM EDT Nathaly Nowak MD LAB POINT OF CARE TE ST DOCKED DEVICE UNSOLICITED RESULTS Final Result [facility] [address] [place] [address] * (ABNORMAL) POCT glucose meter (11/12/2024 5:08 PM EDT) [facility] POCT Glucose 157(H) 74 - 99 mg/dL [...] 11/12/2024 5:10 PM EDT [facility] Worker ID Wade Feliciano 5:10 PM EDT [facility] Device ID [id number] 11/12/2024 5:10 PM EDT [facility] Specimen Type POC Capillary 11/12/2024 5:10 PM EDT [facility] Blood Capillary blood specimen / Unknown 11/12/2024 5:08 PM EDT 11/12/2024 5:10 PM EDT Nathaly Nowak MD LAB POINT OF CARE TE ST DOCKED DEVICE UNSOLICITED RESULTS Final Result Performing Organization Address City/[facility]/ZIP Co de Phone Number [facility] [address] [place] [address] * (ABNORMAL) POCT glucose meter (11/12/2024 12:36 PM EDT) [facility] POCT Glucose 224(H) 74 - 99 mg/dL [...] Comment 11/12/2024 12:38 PM EDT [facility] [employer] Worker ID Wade Feliciano 12:38 PM EDT [facility] LAB Device ID [id number] 11/12/2024 12:38 PM EDT [facility] Specimen Type POC Capillary 11/12/2024 12:38 PM EDT [facility] Blood Capillary blood specimen / Unknown 11/12/2024 12:36 PM EDT 11/12/2024 12:38 PM EDT Nathaly Nowak MD LAB POINT OF CARE TE ST DOCKED DEVICE UNSOLICITED RESULTS Final Result Performing Organization Address City/[facility]/ZIP Co de Phone Number [facility] [address] [place] [address] * Clostridiodes (Clostridium) difficile PCR (11/12/2024 9:50 AM EDT) [facility] C difficile PCR toxin B gene DNA Result Not Detected Not Detected 11/12/2024 11:54 AM EDT [facility] Stool Rectum structure / Unknown Non-blood Collection / Unknown 11/12/2024 9:50 AM EDT 11/12/2024 10:04 AM EDT Narrative [facility] - 11/12/2024 11:54 AM [...] Nowak MD LAB MICROBIOLOGY - GENERAL ORDE [facility] Final Result [facility] [address] [place] [address] * Comprehensive GI Panel by PCR (11/12/2024 9:50 AM EDT) Campylobacter PCR Result Not Detected Not Detected 11/12/2024 2:47 PM EDT [facility] Plesiomonas shigelloides PCR Result Not Detected Not Detected 11/12/2024 2:47 PM EDT [facility] Salmonella PCR Result Not Detected Not Detected 11/12/2024 2:47 PM EDT [facility] Vibrio species PCR Result Not Detected Not Detected 11/12/2024 2:47 PM EDT [facility] Vibrio cholerae PCR Result Not Detected Not Detected 11/12/2024 2:47 PM EDT [facility] Yersinia enterocolitica PCR Result Not Detected Not Detected 11/12/2024 2:47 PM EDT [facility] Enteroaggregative E. coli (EAEC) PCR Result Not Detected Not Detected 11/12/2024 2:47 PM EDT [facility] Enteropathogenic E. coli (EPEC) PCR Result Not Detected Not Detected 11/12/2024 2:47 PM EDT [facility] Enterotoxigenic E. coli (ETEC) lt/st PCR Result Not Detected Not Detected 11/12/2024 2:47 PM EDT [facility] Shiga-like Toxin-Producing E.coli (STEC) stx1/stx2 PCR Resu Not Detected Not Detected 11/12/2024 2:47 PM EDT [facility] E coli 0157 PCR Result Not Detected Not Detected 11/12/2024 2:47 PM EDT [facility] Shigella/Enteroinvas tam E. coli (EIEC) PCR Result Not Detected Not Detected 11/12/2024 2:47 PM EDT [facility] Cryptosporidium PCR Result Not Detected Not Detected 11/12/2024 2:47 PM EDT [facility] Cyclospora cayetanensis PCR Result Not Detected Not Detected 11/12/2024 2:47 PM EDT [facility] Entamoeba histolytica PCR Result Not Detected Not Detected 11/12/2024 2:47 PM EDT [facility] Giardia duodenalis (aka Giardia lamblia) PCR Result Not Detected Not Detected 11/12/2024 2:47 PM EDT [facility] Adenovirus F 40/41 PCR Result Not Detected Not Detected 11/12/2024 2:47 PM EDT [facility] Astrovirus PCR Result Not Detected Not Detected 11/12/2024 2:47 PM EDT [facility] Norovirus GI/GII PCR Result Not Detected Not Detected 11/12/2024 2:47 PM EDT [facility] Rotavirus A PCR Result Not Detected Not Detected 11/12/2024 2:47 PM EDT [facility] Sapovirus PCR Result Not Detected Not Detected 11/12/2024 2:47 PM EDT [facility] Stool Rectum structure / Unknown Non-blood Collection / Unknown 11/12/2024 9:50 AM EDT 11/12/2024 10:04 AM EDT [facility] - 11/12/2024 2:47 PM EDT This [...] Nowak MD LAB MICROBIOLOGY - GENERAL ORDE [facility] Final Result Performing Organization Address [facility] Co de Phone Number [facility] [address] [place] [address] * C-reactive protein (11/12/2024 9:48 AM EDT) [facility] CRP, Plasma <3.0 <=8.0 mg/L 11/12/2024 10:28 AM EDT [facility] Blood Venous blood specimen / Unknown Venipuncture / Unknown 11/12/2024 9:48 AM EDT 11/12/2024 9:59 AM EDT Narrative [facility] - 11/12/2024 10:28 AM EDT This CRP test is appropriate for assessment of infection, systemic inflammation and/or tissue injury. To assess cardiovascular disease risk order high sensitivity CRP (CRPH). Nathaly Nowak MD LAB BLOOD ORDERABLES Final Resu lt Performing Organization Address [facility] de Phone Number [facility] [address] [place] [address] * (ABNORMAL) POCT glucose meter (11/12/2024 8:20 AM EDT) [facility] POCT Glucose 138(H) 74 - 99 mg/dL 11/12/2024 8:21 AM EDT [facility] Comment:Accuracy of a glucos e result [...] for testing. Comment 11/12/2024 8:21 AM EDT [facility] [employer] Worker ID Wade Feliciano 08/19/202 5 8:21 AM EDT [facility] Device ID [id number] 11/12/2024 8:21 AM EDT [facility] Specimen Type POC Capillary 11/12/2024 8:21 AM EDT [facility] Blood Capillary blood specimen / Unknown 11/12/2024 8:20 AM EDT 11/12/2024 8:21 AM EDT Nathaly Nowak MD LAB POINT OF CARE TE ST DOCKED DEVICE UNSOLICITED RESULTS Final Result Performing Organization Address City/[facility] Co de Phone Number [facility] [address] [place] [address] * (ABNORMAL) POCT glucose meter (11/11/2024 8:18 PM EDT) [facility] POCT Glucose 248(H) 74 - 99 mg/dL [...] Comment 11/11/2024 8:20 PM EDT [facility] [employer] Worker ID Nelda Gerber 11/12/19 8:20 PM EDT [facility] Device ID [id number] 11/11/2024 8:20 PM EDT [facility] Specimen Type POC Capillary 11/11/2024 8:20 PM EDT [facility] Blood Capillary blood specimen / Unknown 11/11/2024 8:18 PM EDT 11/11/2024 8:20 PM EDT us Nathaly Nowak MD LAB POINT OF CARE TE ST DOCKED DEVICE UNSOLICITED RESULTS Final Result Performing Organization Address City/[facility] Co de Phone Number [facility] [address] [place] [address] * (ABNORMAL) POCT glucose meter (11/11/2024 5:59 [...] 11/11/2024 6:01 PM EDT [facility] [employer] Worker ID Wade Feliciano 6:01 PM EDT [facility] Device ID [id number] 11/11/2024 6:01 PM EDT [facility] Specimen Type POC Capillary 11/11/2024 6:01 PM EDT [facility] Blood Capillary blood specimen / Unknown 11/11/2024 5:59 PM EDT 11/11/2024 6:01 PM EDT Nathaly Nowak MD LAB POINT OF CARE TE ST DOCKED DEVICE UNSOLICITED RESULTS Final Result [facility] [address] [place] [address] * POCT glucose meter (11/11/2024 5:20 PM EDT) [facility] POCT Glucose 84 74 - 99 mg/dL [...] 11/11/2024 5:22 PM EDT [facility] [employer] Worker ID Wade Feliciano 5:22 PM EDT [facility] Device ID [id number] 11/11/2024 5:22 PM EDT [facility] Specimen Type POC Capillary 11/11/2024 5:22 PM EDT [facility] Blood Capillary blood specimen / Unknown 11/11/2024 5:20 PM EDT 11/11/2024 5:22 PM EDT us Nathaly Nowak MD LAB POINT OF CARE TE ST DOCKED DEVICE UNSOLICITED RESULTS Final Result [facility] [address] [place] [address] * AR NEGATIVE PRESSURE WOUND THERAPY DME >50 SQ [...] - 99 mg/dL 11/11/2024 12:10 PM EDT [facility] Comment:Accuracy of a glucos e result [...] for testing. Comment 11/11/2024 12:10 PM EDT [facility] [employer] Worker ID BradenWade 12:10 PM EDT [facility] Device ID [id number] 11/11/2024 12:10 PM EDT [facility] Specimen Type POC Capillary 11/11/2024 12:10 PM EDT [facility]ALTH[facility]ARE [facility] Blood Capillary blood specimen / Unknown 11/11/2024 12:08 PM EDT 11/11/2024 12:10 PM EDT Nathaly Nowak MD LAB POINT OF CARE TE ST DOCKED DEVICE UNSOLICITED RESULTS Final Result [facility] [address] [place] [address] * (ABNORMAL) POCT glucose meter (11/11/2024 9:08 [...] Comment 11/11/2024 9:09 AM EDT [facility] [employer] Worker ID Wade Feliciano 9:09 AM EDT [facility] Device ID [id number] 11/11/2024 9:09 AM EDT [facility] Specimen Type POC Capillary 11/11/2024 9:09 AM EDT [facility] Blood Capillary blood specimen / Unknown 11/11/2024 9:08 AM EDT 11/11/2024 9:09 AM EDT Nathaly Nowak MD LAB POINT OF CARE TE ST DOCKED DEVICE UNSOLICITED RESULTS Final Result [facility] [address] [place] [address] * POCT glucose meter (11/11/2024 8:27 AM [...] Comment 11/11/2024 8:28 AM EDT [facility] [employer] Worker ID Wade Feliciano 8:28 AM EDT [facility] LAB Device ID [id number] 11/11/2024 8:28 AM EDT [facility] Specimen Type POC Capillary 11/11/2024 8:28 AM EDT [facility] Blood Capillary blood specimen / Unknown 11/11/2024 8:27 AM EDT 11/11/2024 8:28 AM EDT us Nathaly Nowak MD LAB POINT OF CARE TE ST DOCKED DEVICE UNSOLICITED RESULTS Final Result Performing Organization Address City/State/[facility] Co de Phone Number [facility] [address] [place] [address] * (ABNORMAL) Basic Metabolic Panel, Plasma (11/11/2024 1:12 AM EDT) Glucose, Plasma 122(H) 74 - 99 mg/dL 11/11/2024 1:12 AM EDT [facility] BUN, Plasma 10 8 - 23 mg/dL 11/11/2024 1:12 AM EDT [facility] Creatinine, Plasma 0.82 0.70 - 1.20 mg/dL 11/11/2024 1:12 AM EDT [facility] BUN/Creatinine Ratio 12 11/11/2024 1:12 AM EDT [facility] Sodium, Plasma 137 136 - 145 mmol/L 11/11/2024 1:12 AM EDT [facility] Potassium, Plasma 3.9 3.6 - 4.9 mmol/L 11/11/2024 1:12 AM EDT [facility] Chloride, Plasma 110(H) 97 - 107 mmol/L 11/11/2024 1:12 AM EDT [facility] CO2, Plasma 20(L) 22 - 29 mmol/L 11/11/2024 1:12 AM EDT [facility] Anion Gap 7 6 - 16 mmol/L 11/11/2024 1:12 AM EDT [facility] Total Calcium, Plasma 7.6(L) 8.9 - 10.2 mg/dL 11/11/2024 1:12 AM EDT [facility] eGFRcr 97.5 mL/min/1.7 3m*2 11/11/2024 1:12 AM EDT [facility] Comment:Reported eGFRcr in m L/min/1.73m2 is based the CKD-EPI 2020 equation that does not use a race coefficient. Blood Venous blood specimen / Unknown 11/11/2024 12:42 AM EDT us Nathaly Nowak MD LAB BLOOD ORDERABLES Final Resu lt [facility] [address] [place] [address] * (ABNORMAL) CBC W/O Differential (11/11/2024 12:56 AM EDT) WBC Count 11.83(H) 3.70 - 10.30 10*3/uL LAB HEMATOLOGY METHOD 11/11/2024 12:56 AM EDT [facility] RBC Count 2.97(L) 4.60 - 6.10 10*6/uL LAB HEMATOLOGY METHOD 11/11/2024 12:56 AM EDT [facility] HGB 8.9(L) 13.7 - 17.5 g/dL LAB HEMATOLOGY METHOD 11/11/2024 12:56 AM EDT [facility] HCT 27.2(L) 40.0 - 51.0 % LAB HEMATOLOGY METHOD 11/11/2024 12:56 AM EDT [facility] Platelet Count 444(H) 155 - 369 10*3/uL LAB HEMATOLOGY METHOD 11/11/2024 12:56 AM EDT [facility] MCV 92 79 - 98 fL LAB HEMATOLOGY METHOD 11/11/2024 12:56 AM EDT [facility] MCH 30.0 26.0 - 32.0 pg LAB HEMATOLOGY METHOD 11/11/2024 12:56 AM EDT [facility] MCHC 32.7 30.7 - 35.5 g/dL LAB HEMATOLOGY METHOD 11/11/2024 12:56 AM EDT [facility] RDW 13.3 11.5 - 14.5 % LAB HEMATOLOGY METHOD 11/11/2024 12:56 AM EDT [facility] MPV 9.0 8.8 - 12.5 fL LAB HEMATOLOGY METHOD 11/11/2024 12:56 AM EDT [facility] nRBC 0.0 <=0.0 per 100 WBCs LAB HEMATOLOGY METHOD 11/11/2024 12:56 AM EDT [facility] Blood Venous blood specimen / Unknown 11/11/2024 12:42 AM EDT us Nathaly Nowak MD LAB BLOOD ORDERABLES Final Resu lt Performing Organization Address City/[facility]/ZIP Co de Phone Number [facility] [address] [place] [address] * (ABNORMAL) POCT glucose meter (11/10/2024 8:25 PM EDT) [facility] POCT Glucose 144(H) 74 - 99 mg/dL [...] Comment 11/10/2024 8:28 PM EDT [facility] [employer] Worker ID Nelda Gerber 11/11/19 8:28 PM EDT [facility] LAB Device ID [id number] 11/10/2024 8:28 PM EDT [facility] Specimen Type POC Capillary 11/10/2024 8:28 PM EDT [facility] Blood Capillary blood specimen / Unknown 11/10/2024 8:25 PM EDT 11/10/2024 8:28 PM EDT us Nathaly Nowak MD LAB POINT OF CARE TE ST DOCKED DEVICE UNSOLICITED RESULTS Final Result [facility] [address] [place] [address] * (ABNORMAL) POCT glucose meter (11/10/2024 4:45 PM EDT) [facility] POCT Glucose 155(H) 74 - 99 mg/dL [...] 11/10/2024 4:47 PM EDT [facility] Worker ID Esperanza Parks 11/10/2024 4:47 PM EDT [facility] Device ID [id number] 11/10/2024 4:47 PM EDT [facility] Specimen Type POC Capillary 11/10/2024 4:47 PM EDT [facility] Blood Capillary blood specimen / Unknown 11/10/2024 4:45 PM EDT 11/10/2024 4:47 PM EDT Nathaly Nowak MD LAB POINT OF CARE TE ST DOCKED DEVICE UNSOLICITED RESULTS Final Result [facility] [address] [place] [address] * (ABNORMAL) POCT glucose meter (11/10/2024 12:13 PM EDT) [facility] POCT Glucose 131(H) 74 - 99 mg/dL [...] 11/10/2024 12:14 PM EDT [facility] [employer] Worker ID Esperanza Parks 11/10/2024 12:14 PM EDT [facility] Device ID [id number] 11/10/2024 12:14 PM EDT [facility] Specimen Type POC Capillary 11/10/2024 12:14 PM EDT [facility] Blood Capillary blood specimen / Unknown 11/10/2024 12:13 PM EDT 11/10/2024 12:14 PM EDT Nathaly Nowak MD LAB POINT OF CARE TE ST DOCKED DEVICE UNSOLICITED RESULTS Final Result Performing Organization Address [facility] Co de Phone Number [facility] [address] [place] [address] * Vancomycin, Peak, Plasma Please draw ~2 hours after 0800 dose of vancomycin finishes infusing. Consider obtaining level via peripheral stick. If peripheral stick is not feasible, please ensure that line is flushed well prior to drawing level. Than... (11/10/2024 10:56 AM EDT) Vancomycin, Peak, Plasma 23.8 20.0 - 40.0 ug/mL 11/10/2024 11:[address] [facility] Blood Venous blood specimen / Unknown Venipuncture / Unknown 11/10/2024 10:56 AM EDT 11/10/2024 11:00 AM EDT Narrative [facility] - 11/10/2024 11:25 AM EDT Therapeutic Peak level: 20-40ug/mL Supra-therapeutic Peak level: >40 ug/mL us Abigail Seay MD LAB BLOOD ORDERABLES Final Res ult Performing Organization Address [facility] de Phone Number [facility] [address] [place] [address] * (ABNORMAL) POCT glucose meter (11/10/2024 8:03 AM EDT) POCT Glucose 174(H) 74 - 99 mg/dL 11/10/2024 8:04 AM EDT [facility] Comment:Accuracy of a glucos e result [...] Comment 11/10/2024 8:04 AM EDT [facility] [employer] Worker ID Esperanza Parks 11/10/2024 8:04 AM EDT [facility] Device ID [id number] 11/10/2024 8:04 AM EDT [facility] Specimen Type POC Capillary 11/10/2024 8:04 AM EDT [facility] Blood Capillary blood specimen / Unknown 11/10/2024 8:03 AM EDT 11/10/2024 8:04 AM EDT us Nathaly Nowak MD LAB POINT OF CARE TE ST DOCKED DEVICE UNSOLICITED RESULTS Final Result Performing Organization Address [facility]/ZIP Co de Phone Number [facility] [address] [place] [address] * Vancomycin, Trough, Plasma Please draw ~30 minutes prior to dose due at 0800 on 11/10. Please do NOThold dose awaiting level to return. Consider obtaining level via peripheral stick. If peripheral stick is not feasible, please ensure that line is... (11/10/2024 7:27 AM EDT) Vancomycin, Trough, Plasma 16.2 10.0 - 20.0 ug/mL 11/10/2024 8:24 AM EDT [facility] Blood Venous blood specimen / Unknown Venipuncture / Unknown 11/10/2024 7:27 AM EDT 11/10/2024 7:51 AM EDT Narrative [facility] - 11/10/2024 8:24 AM EDT Therapeutic Trough level: 10-20ug/mL Supra-therapeutic Trough level: >20 ug/mL us Abigail Seay MD LAB BLOOD ORDERABLES Final Res ult [facility] [address] [place] [address] * (ABNORMAL) CBC and Differential (11/10/2024 12:31 AM EDT) WBC Count 10.80(H) 3.70 - 10.30 10*3/uL LAB HEMATOLOGY METHOD 11/10/2024 12:53 AM EDT [facility] RBC Count 3.06(L) 4.60 - 6.10 10*6/uL LAB HEMATOLOGY METHOD 11/10/2024 12:53 AM EDT [facility] HGB 9.1(L) 13.7 - 17.5 g/dL LAB HEMATOLOGY METHOD 11/10/2024 12:53 AM EDT [facility] HCT 28.0(L) 40.0 - 51.0 % LAB HEMATOLOGY METHOD 11/10/2024 12:53 AM EDT [facility] Platelet Count 501(H) 155 - 369 10*3/uL LAB HEMATOLOGY METHOD 11/10/2024 12:53 AM EDT [facility] MCV [id number] - 98 fL LAB HEMATOLOGY METHOD 11/10/2024 12:53 AM EDT [facility] MCH 29.7 26.0 - 32.0 pg LAB HEMATOLOGY METHOD 11/10/2024 12:53 AM EDT [facility] MCHC 32.5 30.7 - 35.5 g/dL LAB HEMATOLOGY METHOD 11/10/2024 12:53 AM EDT [facility] RDW 13.2 11.5 - 14.5 % LAB HEMATOLOGY METHOD 11/10/2024 12:53 AM EDT [facility] MPV 8.8 8.8 - 12.5 fL LAB HEMATOLOGY METHOD 11/10/2024 12:53 AM EDT [facility] nRBC 0.0 <=0.0 per 100 WBCs LAB HEMATOLOGY METHOD 11/10/2024 12:53 AM EDT [facility] Differential Type Automated LAB HEMATOLOGY METHOD 11/10/2024 12:53 AM EDT [facility] Neutrophils % 77 % LAB HEMATOLOGY METHOD 11/10/2024 12:53 AM EDT [facility] Lymphocytes % 13 % LAB HEMATOLOGY METHOD 11/10/2024 12:53 AM EDT [facility] Monocytes % 8 % LAB HEMATOLOGY METHOD 11/10/2024 12:53 AM EDT [facility] Eosinophils % 1 % LAB HEMATOLOGY METHOD 11/10/2024 12:53 AM EDT [facility] Basophils % 0 % LAB HEMATOLOGY METHOD 11/10/2024 12:53 AM EDT [facility] Immature Granulocytes % 1 % LAB HEMATOLOGY METHOD 11/10/2024 12:53 AM EDT [facility] Neutrophils Absolute 8.32(H) 1.60 - 6.10 10*3/uL LAB HEMATOLOGY METHOD 11/10/2024 12:53 AM EDT [facility] Lymphocytes Absolute 1.40 1.20 - 3.90 10*3/uL LAB HEMATOLOGY METHOD 11/10/2024 12:53 AM EDT [facility] Monocytes Absolute 0.89 0.30 - 0.90 10*3/uL LAB HEMATOLOGY METHOD 11/10/2024 12:53 AM EDT [facility] Eosinophils Absolute 0.09 0.00 - 0.50 10*3/uL LAB HEMATOLOGY METHOD 11/10/2024 12:53 AM EDT [facility] Basophils Absolute 0.04 0.00 - 0.10 10*3/uL LAB HEMATOLOGY METHOD 11/10/2024 12:53 AM EDT [facility] Immature Granulocytes Absolute 0.06 0.00 - 0.06 10*3/uL LAB HEMATOLOGY METHOD 11/10/2024 12:53 AM EDT [facility] Blood Venous blood specimen / Unknown Venipuncture / Unknown 11/10/2024 12:31 AM EDT 11/10/2024 12:37 AM EDT Narrative [facility] - 11/10/2024 12:53 AM EDT Therapeutic decision making should be based on absolute values, rather than percentages. us Nathaly Nowak MD LAB BLOOD ORDERABLES Final Resu lt [facility] [address] [place] [address] * (ABNORMAL) Comprehensive Metabolic Panel, Plasma (11/10/2024 12:31 AM EDT) Glucose, Plasma 185(H) 74 - 99 mg/dL 11/10/2024 1:05 AM EDT [facility] BUN, Plasma 9 8 - 23 mg/dL 11/10/2024 1:05 AM EDT [facility] Creatinine, Plasma 0.72 0.70 - 1.20 mg/dL 11/10/2024 1:05 AM EDT [facility] BUN/Creatinine Ratio 13 11/10/2024 1:05 AM EDT [facility] Sodium, Plasma 135(L) 136 - 145 mmol/L 11/10/2024 1:05 AM EDT [facility] Potassium, Plasma 4.0 3.6 - 4.9 mmol/L 11/10/2024 1:05 AM EDT [facility] Chloride, Plasma 106 97 - 107 mmol/L 11/10/2024 1:05 AM EDT [facility] CO2, Plasma 19(L) 22 - 29 mmol/L 11/10/2024 1:05 AM EDT [facility] Anion Gap 10 6 - 16 mmol/L 11/10/2024 1:05 AM EDT [facility] Total Calcium, Plasma 7.8(L) 8.9 - 10.2 mg/dL 11/10/2024 1:05 AM EDT [facility] Total Protein 5.6(L) 6.3 - 7.9 g/dL 11/10/2024 1:05 AM EDT [facility] Albumin, Plasma 3.1(L) 3.5 - 5.2 g/dL 11/10/2024 1:05 AM EDT [facility] AST, Plasma 33 10 - 50 U/L 11/10/2024 1:05 AM EDT [facility] ALT, Plasma 25 10 - 50 U/L 11/10/2024 1:05 AM EDT [facility] Alkaline Phosphatase, Plasma 108 40 - 115 U/L 11/10/2024 1:05 AM EDT [facility] Total Bilirubin, Plasma <0.2(L) 0.2 - 1.1 mg/dL 11/10/2024 1:05 AM EDT [facility] eGFRcr 101.4 mL/min/1.7 3m*2 11/10/2024 1:05 AM EDT [facility] Comment:Reported eGFRcr in m L/min/1.73m2 is based the CKD-EPI 2020 equation that does not use a race coefficient. Blood Venous blood specimen / Unknown Venipuncture / Unknown 11/10/2024 12:31 AM EDT 11/10/2024 12:37 AM EDT Nathaly Nowak MD LAB BLOOD ORDERABLES Final Resu lt Performing Organization Address [facility] Co de Phone Number [facility] [address] [place] [address] * (ABNORMAL) POCT glucose meter (11/09/2024 8:04 [...] for testing. Comment 11/09/2024 8:06 PM EDT [facility] [employer] Worker ID Maximiliano Hansen II 11/09/2024 8:06 PM EDT [facility] Device ID [id number] 11/09/2024 8:06 PM EDT [facility] Specimen Type POC Capillary 11/09/2024 8:06 PM EDT [facility] Blood Capillary blood specimen / Unknown 11/09/2024 8:04 PM EDT 11/09/2024 8:06 PM EDT Nathaly Nowak MD LAB POINT OF CARE TE ST DOCKED DEVICE UNSOLICITED RESULTS Final Result Performing Organization Address City/[facility] Co de Phone Number [facility] [address] [place] [address] * (ABNORMAL) POCT glucose meter (11/09/2024 4:36 [...] 11/09/2024 4:38 PM EDT [facility] [employer] Worker ID Kristian Sosa 11/09/2024 4:38 PM EDT [facility] Device ID [id number] 11/09/2024 4:38 PM EDT [facility] Specimen Type POC Capillary 11/09/2024 4:38 PM EDT [facility] Blood Capillary blood specimen / Unknown 11/09/2024 4:36 PM EDT 11/09/2024 4:38 PM EDT us Nathaly Nowak MD LAB POINT OF CARE TE ST DOCKED DEVICE UNSOLICITED RESULTS Final Result [facility] [address] [place] [address] * PICC SINGLE LUMEN ([employer] L[employer]) (11/09/2024 1:11 PM EDT) Narrative Estefani Barraza RN - 11/09/2024 1:11 PM EDT Estefani Barraza RN 11/09/2024 1:12 PM Insert PICC line Date/Time: 11/09/2024 1:11 PM Performed by: Estefani Barraza RN Authorized by: Nathaly Nowak MD [place] Protocol: Verbal consent obtained?: Yes Written consent [...] selection rationale: Left pacemaker Catheter Lot #: [id number] Catheter air valve repairer: Wear Catheter placed: Single lumen Catheter size: 4 [...] for testing. Comment 11/09/2024 11:51 AM EDT [facility] [employer] Worker ID Kristian Sosa 11/09/2024 11:51 AM EDT [facility] Device ID [id number] 11/09/2024 11:51 AM EDT [facility] Specimen Type POC Capillary 11/09/2024 11:51 AM EDT [facility] Blood Capillary blood specimen / Unknown 11/09/2024 11:50 AM EDT 11/09/2024 11:51 AM EDT Nathaly Nowak MD LAB POINT OF CARE TE ST DOCKED DEVICE UNSOLICITED RESULTS Final Result [facility] [address] [place] [id number] * (ABNORMAL) POCT glucose meter (11/09/2024 8:14 AM EDT) [facility] POCT Glucose 153(H) 74 - 99 [...] Comment 11/09/2024 8:15 AM EDT [facility] [employer] Worker ID Kristian Sosa 11/09/2024 8:15 AM EDT [facility] Device ID [id number] 11/09/2024 8:15 AM EDT [facility] Specimen Type POC Capillary 11/09/2024 8:15 AM EDT [facility] Blood Capillary blood specimen / Unknown 11/09/2024 8:14 AM EDT 11/09/2024 8:15 AM EDT us Nathaly Nowak MD LAB POINT OF CARE TE ST DOCKED DEVICE UNSOLICITED RESULTS Final Result Performing Organization Address City/State/[facility] Co de Phone Number [facility] [address] [place] [address] * (ABNORMAL) CBC and Differential (11/09/2024 4:15 AM EDT) [facility] WBC Count 10.27 3.70 - 10.30 10*3/uL LAB HEMATOLOGY METHOD 11/09/2024 4:26 AM EDT [facility] RBC Count 3.14(L) 4.60 - 6.10 10*6/uL LAB HEMATOLOGY METHOD 11/09/2024 4:26 AM EDT [facility] HGB 9.2(L) 13.7 - 17.5 g/dL LAB HEMATOLOGY METHOD 11/09/2024 4:26 AM EDT [facility] HCT 28.3(L) 40.0 - 51.0 % LAB HEMATOLOGY METHOD 11/09/2024 4:26 AM EDT [facility] Platelet Count 468(H) 155 - 369 10*3/uL LAB HEMATOLOGY METHOD 11/09/2024 4:26 AM EDT [facility] MCV 90 79 - 98 fL LAB HEMATOLOGY METHOD 11/09/2024 4:26 AM EDT [facility] MCH 29.3 26.0 - 32.0 pg LAB HEMATOLOGY METHOD 11/09/2024 4:26 AM EDT [facility] MCHC 32.5 30.7 - 35.5 g/dL LAB HEMATOLOGY METHOD 11/09/2024 4:26 AM EDT [facility] RDW 13.1 11.5 - 14.5 % LAB HEMATOLOGY METHOD 11/09/2024 4:26 AM EDT [facility] MPV 8.7(L) 8.8 - 12.5 fL LAB HEMATOLOGY METHOD 11/09/2024 4:26 AM EDT [facility] nRBC 0.0 <=0.0 per 100 WBCs LAB HEMATOLOGY METHOD 11/09/2024 4:26 AM EDT [facility] Differential Type Automated LAB HEMATOLOGY METHOD 11/09/2024 4:26 AM EDT [facility] Neutrophils % 77 % LAB HEMATOLOGY METHOD 11/09/2024 4:26 AM EDT [facility] Lymphocytes % 13 % LAB HEMATOLOGY METHOD 11/09/2024 4:26 AM EDT [facility] Monocytes % 8 % LAB HEMATOLOGY METHOD 11/09/2024 4:26 AM EDT [facility] Eosinophils % 1 % LAB HEMATOLOGY METHOD 11/09/2024 4:26 AM EDT [facility] Basophils % 0 % LAB HEMATOLOGY METHOD 11/09/2024 4:26 AM EDT [facility] Immature Granulocytes % 1 % LAB HEMATOLOGY METHOD 11/09/2024 4:26 AM EDT [facility] Neutrophils Absolute 7.97(H) 1.60 - 6.10 10*3/uL LAB HEMATOLOGY METHOD 11/09/2024 4:26 AM EDT [facility] Lymphocytes Absolute 1.32 1.20 - 3.90 10*3/uL LAB HEMATOLOGY METHOD 11/09/2024 4:26 AM EDT [facility] Monocytes Absolute 0.83 0.30 - 0.90 10*3/uL LAB HEMATOLOGY METHOD 11/09/2024 4:26 AM EDT [facility] Eosinophils Absolute 0.07 0.00 - 0.50 10*3/uL LAB HEMATOLOGY METHOD 11/09/2024 4:26 AM EDT [facility] Basophils Absolute 0.03 0.00 - 0.10 10*3/uL LAB HEMATOLOGY METHOD 11/09/2024 4:26 AM EDT [facility] Immature Granulocytes Absolute 0.05 0.00 - 0.06 10*3/uL LAB HEMATOLOGY METHOD 11/09/2024 4:26 AM EDT [facility] Blood Venous blood specimen / Unknown Venipuncture / Unknown 11/09/2024 4:15 AM EDT 11/09/2024 4:18 AM EDT Narrative [facility] - 11/09/2024 4:26 AM EDT Therapeutic decision making should be based on absolute values, rather than percentages. us Nathaly Nowak MD LAB BLOOD ORDERABLES Final Resu lt [facility] [address] [place] [address] * (ABNORMAL) Comprehensive Metabolic Panel, Plasma (11/09/2024 4:15 AM EDT) Glucose, Plasma 171(H) 74 - 99 mg/dL 11/09/2024 4:47 AM EDT [facility] BUN, Plasma 9 8 - 23 mg/dL 11/09/2024 4:47 AM EDT [facility] Creatinine, Plasma 0.67(L) 0.70 - 1.20 mg/dL 11/09/2024 4:47 AM EDT [facility] BUN/Creatinine Ratio 13 11/09/2024 4:47 AM EDT [facility] Sodium, Plasma 134(L) 136 - 145 mmol/L 11/09/2024 4:47 AM EDT [facility] Potassium, Plasma 4.1 3.6 - 4.9 mmol/L 11/09/2024 4:47 AM EDT [facility] Chloride, Plasma 104 97 - 107 mmol/L 11/09/2024 4:47 AM EDT [facility] CO2, Plasma 21(L) 22 - 29 mmol/L 11/09/2024 4:47 AM EDT [facility] Anion Gap 9 6 - 16 mmol/L 11/09/2024 4:47 AM EDT [facility] Total Calcium, Plasma 8.4(L) 8.9 - 10.2 mg/dL 11/09/2024 4:47 AM EDT [facility] Total Protein 5.8(L) 6.3 - 7.9 g/dL 11/09/2024 4:47 AM EDT [facility] Albumin, Plasma 3.2(L) 3.5 - 5.2 g/dL 11/09/2024 4:47 AM EDT [facility] AST, Plasma 18 10 - 50 U/L 11/09/2024 4:47 AM EDT [facility] ALT, Plasma 17 10 - 50 U/L 11/09/2024 4:47 AM EDT [facility] Alkaline Phosphatase, Plasma 110 40 - 115 U/L 11/09/2024 4:47 AM EDT [facility] Total Bilirubin, Plasma <0.2(L) 0.2 - 1.1 mg/dL 11/09/2024 4:47 AM EDT [facility] eGFRcr 103.6 mL/min/1.7 3m*2 11/09/2024 4:47 AM EDT [facility] Comment:Reported eGFRcr in m L/min/1.73m2 is based the CKD-EPI 2020 equation that does not use a race coefficient. Blood Venous blood specimen / Unknown Venipuncture / Unknown 11/09/2024 4:15 AM EDT 11/09/2024 4:18 AM EDT us Nathaly Nowak MD LAB BLOOD ORDERABLES Final Resu lt [facility] [address] [place] [address] * (ABNORMAL) POCT glucose meter (11/09/2024 3:30 AM EDT) POCT Glucose 160(H) 74 - 99 mg/dL 11/09/2024 3:31 AM EDT [facility] Comment:Accuracy of a glucos e result [...] Comment 11/09/2024 3:31 AM EDT [facility] [employer] Worker ID Maximiliano Hansen II 11/09/2024 3:31 AM EDT [facility] Device ID [id number] 11/09/2024 3:31 AM EDT [facility] Specimen Type POC Capillary 11/09/2024 3:31 AM EDT [facility] Blood Capillary blood specimen / Unknown 11/09/2024 3:30 AM EDT 11/09/2024 3:31 AM EDT Nathaly Nowak MD LAB POINT OF CARE TE ST DOCKED DEVICE UNSOLICITED RESULTS Final Result Performing Organization Address City/State/[facility] Co de Phone Number [facility] [address] [place] [address] * (ABNORMAL) POCT glucose meter (11/08/2024 7:21 [...] Comment 11/08/2024 7:22 PM EDT [facility] [employer] Worker ID Maximiliano Hansen II 11/08/2024 7:22 PM EDT [facility] Device ID [id number] 11/08/2024 7:22 PM EDT [facility] Specimen Type POC Capillary 11/08/2024 7:22 PM EDT [facility] Blood Capillary blood specimen / Unknown 11/08/2024 7:21 PM EDT 11/08/2024 7:22 PM EDT us Nathaly Nowak MD LAB POINT OF CARE TE ST DOCKED DEVICE UNSOLICITED RESULTS Final Result Performing Organization Address City/[facility]/ZIP Co de Phone Number [facility] [address] [place] [address] * (ABNORMAL) POCT glucose meter (11/08/2024 5:12 PM EDT) [facility] POCT Glucose 178(H) 74 - 99 [...] Comment 11/08/2024 5:14 PM EDT [facility] [employer] Worker ID Domenic Estefani Perez 11/08/2024 5:14 PM EDT [facility] Device ID [id number] 11/08/2024 5:14 PM EDT [facility] Specimen Type POC Capillary 11/08/2024 5:14 PM EDT [facility] Blood Capillary blood specimen / Unknown 11/08/2024 5:12 PM EDT 11/08/2024 5:14 PM EDT Result [facility] Nathaly Nowak MD LAB POINT OF CARE TE ST DOCKED DEVICE UNSOLICITED RESULTS Final Result Performing Organization Address City/[facility] Co de Phone Number [facility] [address] [place] [address] * (ABNORMAL) POCT glucose meter (11/08/2024 12:03 PM EDT) [facility] POCT Glucose 191(H) 74 - 99 mg/dL [...] 11/08/2024 12:05 PM EDT [facility] [employer] Worker ID Estefani Sheth 11/08/2024 12:05 PM EDT [facility] Device ID [id number] 11/08/2024 12:05 PM EDT [facility] Specimen Type POC Capillary 11/08/2024 12:05 PM EDT [facility] Blood Capillary blood specimen / Unknown 11/08/2024 12:03 PM EDT 11/08/2024 12:05 PM EDT Nathaly Nowak MD LAB POINT OF CARE TE ST DOCKED DEVICE UNSOLICITED RESULTS Final Result [facility] [address] [place] [address] * Vancomycin, Peak, Plasma Please draw ~2 hours after 11/08 0600 dose of vancomycin finishes infusing.Consider obtaining level via peripheral stick. If peripheral stick is not feasible, please ensure that line is flushed well prior to drawing level.... (11/08/2024 9:24 AM EDT) Pathologist [facility] Vancomycin, Peak, Plasma 29.1 20.0 - 40.0 ug/mL 11/08/2024 10:31 AM EDT [facility] Blood Venous blood specimen / Unknown Venipuncture / Unknown 11/08/2024 9:24 AM EDT 11/08/2024 9:47 AM EDT Narrative [facility] - 11/08/2024 10:31 AM EDT Therapeutic Peak level: 20-40ug/mL Supra-therapeutic Peak level: >40 ug/mL us Nathaly Nowak MD LAB BLOOD ORDERABLES Final Resu lt [facility] [address] [place] [address] * (ABNORMAL) POCT glucose meter (11/08/2024 8:00 [...] for testing. Comment 11/08/2024 8:01 AM EDT [facility] [employer] Worker ID Estefani Sheth 11/08/2024 8:01 AM EDT [facility] Device ID [id number] 11/08/2024 8:01 AM EDT [facility] Specimen Type POC Capillary 11/08/2024 8:01 AM EDT [facility] Blood Capillary blood specimen / Unknown 11/08/2024 8:00 AM EDT 11/08/2024 8:01 AM EDT us Nathaly Nowak MD LAB POINT OF CARE TE ST DOCKED DEVICE UNSOLICITED RESULTS Final Result Performing Organization Address City/State/[facility] Co de Phone Number [facility] [address] [place] [address] * (ABNORMAL) CBC and Differential (11/08/2024 4:39 AM EDT) WBC Count 9.18 3.70 - 10.30 10*3/uL LAB HEMATOLOGY METHOD 11/08/2024 4:58 AM EDT [facility] RBC Count 3.11(L) 4.60 - 6.10 10*6/uL LAB HEMATOLOGY METHOD 11/08/2024 4:58 AM EDT [facility] HGB 9.2(L) 13.7 - 17.5 g/dL LAB HEMATOLOGY METHOD 11/08/2024 4:58 AM EDT [facility] HCT 28.9(L) 40.0 - 51.0 % LAB HEMATOLOGY METHOD 11/08/2024 4:58 AM EDT [facility] Platelet Count 485(H) 155 - 369 10*3/uL LAB HEMATOLOGY METHOD 11/08/2024 4:58 AM EDT [facility] MCV 93 79 - 98 fL LAB HEMATOLOGY METHOD 11/08/2024 4:58 AM EDT [facility] MCH 29.6 26.0 - 32.0 pg LAB HEMATOLOGY METHOD 11/08/2024 4:58 AM EDT [facility] MCHC 31.8 30.7 - 35.5 g/dL LAB HEMATOLOGY METHOD 11/08/2024 4:58 AM EDT [facility] RDW 13.0 11.5 - 14.5 % LAB HEMATOLOGY METHOD 11/08/2024 4:58 AM EDT [facility] MPV 8.8 8.8 - 12.5 fL LAB HEMATOLOGY METHOD 11/08/2024 4:58 AM EDT [facility] nRBC 0.0 <=0.0 per 100 WBCs LAB HEMATOLOGY METHOD 11/08/2024 4:58 AM EDT [facility] Differential Type Automated LAB HEMATOLOGY METHOD 11/08/2024 4:58 AM EDT [facility] Neutrophils % 69 % LAB HEMATOLOGY METHOD 11/08/2024 4:58 AM EDT [facility] Lymphocytes % 17 % LAB HEMATOLOGY METHOD 11/08/2024 4:58 AM EDT [facility] Monocytes % 10 % LAB HEMATOLOGY METHOD 11/08/2024 4:58 AM EDT [facility] Eosinophils % 2 % LAB HEMATOLOGY METHOD 11/08/2024 4:58 AM EDT [facility] Basophils % 1 % LAB HEMATOLOGY METHOD 11/08/2024 4:58 AM EDT [facility] Immature Granulocytes % 1 % LAB HEMATOLOGY METHOD 11/08/2024 4:58 AM EDT [facility] Neutrophils Absolute 6.40(H) 1.60 - 6.10 10*3/uL LAB HEMATOLOGY METHOD 11/08/2024 4:58 AM EDT [facility] Lymphocytes Absolute 1.59 1.20 - 3.90 10*3/uL LAB HEMATOLOGY METHOD 11/08/2024 4:58 AM EDT [facility] Monocytes Absolute 0.87 0.30 - 0.90 10*3/uL LAB HEMATOLOGY METHOD 11/08/2024 4:58 AM EDT [facility] Eosinophils Absolute 0.22 0.00 - 0.50 10*3/uL LAB HEMATOLOGY METHOD 11/08/2024 4:58 AM EDT [facility] Basophils Absolute 0.05 0.00 - 0.10 10*3/uL LAB HEMATOLOGY METHOD 11/08/2024 4:58 AM EDT [facility] Immature Granulocytes Absolute 0.05 0.00 - 0.06 10*3/uL LAB HEMATOLOGY METHOD 11/08/2024 4:58 AM EDT [facility] Blood Venous blood specimen / Unknown Venipuncture / Unknown 11/08/2024 4:39 AM EDT 11/08/2024 4:49 AM EDT Narrative [facility] - 11/08/2024 4:58 AM EDT Therapeutic decision making should be based on absolute values, rather than percentages. us Nathaly Nowak MD LAB BLOOD ORDERABLES Final Resu lt [facility] [address] [place] [address] * (ABNORMAL) Comprehensive Metabolic Panel, Plasma (11/08/2024 4:39 AM EDT) Glucose, Plasma 255(H) 74 - 99 mg/dL 11/08/2024 5:20 AM EDT [facility] BUN, Plasma 10 8 - 23 mg/dL 11/08/2024 5:20 AM EDT [facility] Creatinine, Plasma 0.75 0.70 - 1.20 mg/dL 11/08/2024 5:20 AM EDT [facility] BUN/Creatinine Ratio 13 11/08/2024 5:20 AM EDT [facility] Sodium, Plasma 133(L) 136 - 145 mmol/L 11/08/2024 5:20 AM EDT [facility] Potassium, Plasma 5.2(H) 3.6 - 4.9 mmol/L 11/08/2024 5:20 AM EDT [facility] Chloride, Plasma 105 97 - 107 mmol/L 11/08/2024 5:20 AM EDT [facility] CO2, Plasma 20(L) 22 - 29 mmol/L 11/08/2024 5:20 AM EDT [facility] Anion Gap 8 6 - 16 mmol/L 11/08/2024 5:20 AM EDT [facility] Total Calcium, Plasma 7.7(L) 8.9 - 10.2 mg/dL 11/08/2024 5:20 AM EDT [facility] Total Protein 5.6(L) 6.3 - 7.9 g/dL 11/08/2024 5:20 AM EDT [facility] Albumin, Plasma 2.8(L) 3.5 - 5.2 g/dL 11/08/2024 5:20 AM EDT [facility] AST, Plasma 20 10 - 50 U/L 11/08/2024 5:20 AM EDT [facility] Comment:Hemolyzed, result ma y be falsely increased. ALT, Plasma 14 10 - 50 U/L 11/08/2024 5:20 AM EDT [facility] Alkaline Phosphatase, Plasma 119(H) 40 - 115 U/L 11/08/2024 5:20 AM EDT [facility] Total Bilirubin, Plasma <0.2(L) 0.2 - 1.1 mg/dL 11/08/2024 5:20 AM EDT [facility] eGFRcr 100.1 mL/min/1.7 3m*2 11/08/2024 5:20 AM EDT [facility] Comment:Reported eGFRcr in m L/min/1.73m2 is based the CKD-EPI 2020 equation that does not use a race coefficient. Blood Venous blood specimen / Unknown Venipuncture / Unknown 11/08/2024 4:39 AM EDT 11/08/2024 4:43 AM EDT us Nathaly Nowak MD LAB BLOOD ORDERABLES Final Resu lt [facility] [address] [place] [address] * Vancomycin, Trough, Plasma Please draw ~30 minutes prior to dose due at 0600 on 11/08. Please do NOThold dose awaiting level to return. Consider obtaining level via peripheral stick. If peripheral stick is not feasible, please ensure that line is... (11/08/2024 4:39 AM EDT) Vancomycin, Trough, Plasma 18.7 10.0 - 20.0 ug/mL 11/08/2024 5:22 AM EDT [facility] Blood Venous blood specimen / Unknown Venipuncture / Unknown 11/08/2024 4:39 AM EDT 11/08/2024 4:43 AM EDT Narrative [facility] - 11/08/2024 5:22 AM EDT Therapeutic Trough level: 10-20ug/mL Supra-therapeutic Trough level: >20 ug/mL Nathaly Nowak MD LAB BLOOD ORDERABLES Final Resu lt Performing Organization Address City/[facility]/ZIP Co de Phone Number [facility] [address] [place] [address] * (ABNORMAL) POCT glucose meter (11/07/2024 7:26 [...] Comment 11/07/2024 7:28 PM EDT [facility] [place] Worker ID Maximiliano Hansen II 11/07/2024 7:28 PM EDT [facility] Device ID [id number] 11/07/2024 7:28 PM EDT [facility] Specimen Type POC Capillary 11/07/2024 7:28 PM EDT [facility] Blood Capillary blood specimen / Unknown 11/07/2024 7:26 PM EDT 11/07/2024 7:28 PM EDT Nathaly Nowak MD LAB POINT OF CARE TE ST DOCKED DEVICE UNSOLICITED RESULTS Final Result Performing Organization Address City/[facility]/ZIP Co de Phone Number [facility] [address] [place] [address] * (ABNORMAL) POCT glucose meter (11/07/2024 5:51 [...] 11/07/2024 5:52 PM EDT [facility] [place] Worker ID Brigitte Castellon 11/07/2024 5:52 PM EDT [facility] Device ID [id number] 11/07/2024 5:52 PM EDT [facility] Specimen Type POC Capillary 11/07/2024 5:52 PM EDT [facility] Blood Capillary blood specimen / Unknown 11/07/2024 5:51 PM EDT 11/07/2024 5:52 PM EDT Nathaly Nowak MD LAB POINT OF CARE TE ST DOCKED DEVICE UNSOLICITED RESULTS Final Result Performing Organization Address City/State/[facility] Co de Phone Number [facility] [address] [place] [address] * (ABNORMAL) POCT glucose meter (11/07/2024 4:47 PM EDT) [facility] POCT Glucose 162(H) 74 - 99 mg/dL [...] Comment 11/07/2024 4:48 PM EDT [facility] [place] Worker ID Estefani Sheth 11/07/2024 4:48 PM EDT [facility] Device ID [id number] 11/07/2024 4:48 PM EDT [facility] Specimen Type POC Capillary 11/07/2024 4:48 PM EDT [facility] Blood Capillary blood specimen / Unknown 11/07/2024 4:47 PM EDT 11/07/2024 4:48 PM EDT Nathaly Nowak MD LAB POINT OF CARE TE ST DOCKED DEVICE UNSOLICITED RESULTS Final Result Performing Organization Address City/[facility]/ZIP Co de Phone Number HEALTHCARE LAB [address] [place] [address] * (ABNORMAL) POCT glucose meter (11/07/2024 12:22 [...] Comment 11/07/2024 12:24 PM EDT [facility]ALTH[facility]ARE [facility] Rollway Worker ID Estefani Sheth 11/07/2024 12:24 PM EDT HEALTHCARE LAB Device ID [id number] 11/07/2024 12:24 PM EDT HEALTHCARE LAB Specimen Type POC Capillary 11/07/2024 12:24 PM EDT [facility] Blood Capillary blood specimen / Unknown 11/07/2024 12:22 PM EDT 11/07/2024 12:24 PM EDT Nathaly Nowak MD LAB POINT OF CARE TE ST DOCKED DEVICE UNSOLICITED RESULTS Final Result Performing Organization Address City/[facility]/ZIP Co de Phone Number HEALTHCARE LAB [address] [place] [address] * (ABNORMAL) CBC and Differential (11/07/2024 11:37 AM EDT) Pathologist [facility] WBC Count 9.96 3.70 - 10.30 10*3/uL LAB HEMATOLOGY METHOD 11/07/2024 12:33 PM EDT [facility] RBC Count 2.81(L) 4.60 - 6.10 10*6/uL LAB HEMATOLOGY METHOD 11/07/2024 12:33 PM EDT [facility] HGB 8.5(L) 13.7 - 17.5 g/dL LAB HEMATOLOGY METHOD 11/07/2024 12:33 PM EDT [facility] HCT 26.0(L) 40.0 - 51.0 % LAB HEMATOLOGY METHOD 11/07/2024 12:33 PM EDT [facility] Platelet Count 524(H) 155 - 369 10*3/uL LAB HEMATOLOGY METHOD 11/07/2024 12:33 PM EDT [facility] MCV 93 79 - 98 fL LAB HEMATOLOGY METHOD 11/07/2024 12:33 PM EDT [facility] MCH 30.2 26.0 - 32.0 pg LAB HEMATOLOGY METHOD 11/07/2024 12:33 PM EDT [facility] MCHC 32.7 30.7 - 35.5 g/dL LAB HEMATOLOGY METHOD 11/07/2024 12:33 PM EDT [facility] RDW 13.1 11.5 - 14.5 % LAB HEMATOLOGY METHOD 11/07/2024 12:33 PM EDT [facility] MPV 9.0 8.8 - 12.5 fL LAB HEMATOLOGY METHOD 11/07/2024 12:33 PM EDT [facility] nRBC 0.0 <=0.0 per 100 WBCs LAB HEMATOLOGY METHOD 11/07/2024 12:33 PM EDT [facility] Differential Type Automated LAB HEMATOLOGY METHOD 11/07/2024 12:33 PM EDT [facility] Neutrophils % 72 % LAB HEMATOLOGY METHOD 11/07/2024 12:33 PM EDT [facility] Lymphocytes % 17 % LAB HEMATOLOGY METHOD 11/07/2024 12:33 PM EDT [facility] Monocytes % 9 % LAB HEMATOLOGY METHOD 11/07/2024 12:33 PM EDT [facility] Eosinophils % 1 % LAB HEMATOLOGY METHOD 11/07/2024 12:33 PM EDT [facility] Basophils % 1 % LAB HEMATOLOGY METHOD 11/07/2024 12:33 PM EDT [facility] Immature Granulocytes % 0 % LAB HEMATOLOGY METHOD 11/07/2024 12:33 PM EDT [facility] Neutrophils Absolute 7.19(H) 1.60 - 6.10 10*3/uL LAB HEMATOLOGY METHOD 11/07/2024 12:33 PM EDT [facility] Lymphocytes Absolute 1.66 1.20 - 3.90 10*3/uL LAB HEMATOLOGY METHOD 11/07/2024 12:33 PM EDT [facility] Monocytes Absolute 0.88 0.30 - 0.90 10*3/uL LAB HEMATOLOGY METHOD 11/07/2024 12:33 PM EDT [facility] Eosinophils Absolute 0.14 0.00 - 0.50 10*3/uL LAB HEMATOLOGY METHOD 11/07/2024 12:33 PM EDT [facility] Basophils Absolute 0.05 0.00 - 0.10 10*3/uL LAB HEMATOLOGY METHOD 11/07/2024 12:33 PM EDT [facility] Immature Granulocytes Absolute 0.04 0.00 - 0.06 10*3/uL LAB HEMATOLOGY METHOD 11/07/2024 12:33 PM EDT [facility] Blood Venous blood specimen / Unknown Venipuncture / Unknown 11/07/2024 11:37 AM EDT 11/07/2024 12:24 PM EDT Narrative [facility] - 11/07/2024 12:33 PM EDT Therapeutic decision making should be based on absolute values, rather than percentages. us Nathaly Nowak MD LAB BLOOD ORDERABLES Final Resu lt [facility] [address] [place] [address] * (ABNORMAL) Comprehensive Metabolic Panel, Plasma (11/07/2024 11:37 AM EDT) Glucose, Plasma 173(H) 74 - 99 mg/dL 11/07/2024 1:31 PM EDT [facility] BUN, Plasma 13 8 - 23 mg/dL 11/07/2024 1:31 PM EDT [facility] Creatinine, Plasma 0.92 0.70 - 1.20 mg/dL 11/07/2024 1:31 PM EDT [facility] BUN/Creatinine Ratio 14 11/07/2024 1:31 PM EDT [facility] Sodium, Plasma 136 136 - 145 mmol/L 11/07/2024 1:31 PM EDT [facility] Potassium, Plasma 4.0 3.6 - 4.9 mmol/L 11/07/2024 1:31 PM EDT [facility] Chloride, Plasma 104 97 - 107 mmol/L 11/07/2024 1:31 PM EDT [facility] CO2, Plasma 23 22 - 29 mmol/L 11/07/2024 1:31 PM EDT [facility] Anion Gap 9 6 - 16 mmol/L 11/07/2024 1:31 PM EDT [facility] Total Calcium, Plasma 7.8(L) 8.9 - 10.2 mg/dL 11/07/2024 1:31 PM EDT [facility] Total Protein 5.7(L) 6.3 - 7.9 g/dL 11/07/2024 1:31 PM EDT [facility] Albumin, Plasma 3.0(L) 3.5 - 5.2 g/dL 11/07/2024 1:31 PM EDT [facility] AST, Plasma 15 10 - 50 U/L 11/07/2024 1:31 PM EDT [facility] ALT, Plasma 16 10 - 50 U/L 11/07/2024 1:31 PM EDT [facility] Alkaline Phosphatase, Plasma 119(H) 40 - 115 U/L 11/07/2024 1:31 PM EDT [facility] Total Bilirubin, Plasma <0.2(L) 0.2 - 1.1 mg/dL 11/07/2024 1:31 PM EDT [facility] eGFRcr 92.3 mL/min/1.7 3m*2 11/07/2024 1:31 PM EDT [facility] Comment:Reported eGFRcr in m L/min/1.73m2 is based the CKD-EPI 2020 equation that does not use a race coefficient. Blood Venous blood specimen / Unknown Venipuncture / Unknown 11/07/2024 11:37 AM EDT 11/07/2024 12:23 PM EDT us Nathaly Nowak MD LAB BLOOD ORDERABLES Final Resu lt [facility] [address] [place] [address] * Type and Screen (11/07/2024 11:37 AM [...] inal Result Performing Organization Address [facility] Co de Phone Number BLOOD BANK [address] [place] [address] * (ABNORMAL) POCT glucose meter (11/07/2024 10:34 AM EDT) [facility] POCT Glucose 199(H) 74 - 99 mg/dL [...] 11/07/2024 10:36 AM EDT [facility] [employer] Worker ID Joy Iraheta 11/07/2024 10:36 AM EDT HEALTHCARE LAB Device ID [id number] 11/07/2024 10:36 AM EDT HEALTHCARE LAB Specimen Type POC Capillary 11/07/2024 10:36 AM EDT [facility]ALTH[facility]ARE LAB Blood Capillary blood specimen / Unknown 11/07/2024 10:34 AM EDT 11/07/2024 10:36 AM EDT Nathaly Nowak MD LAB POINT OF CARE TE ST DOCKED DEVICE UNSOLICITED RESULTS Final Result Performing Organization Address City/[facility] Co de Phone Number [facility] [address] [place] [address] * (ABNORMAL) POCT glucose meter (11/07/2024 9:34 AM EDT) [facility] POCT Glucose 208(H) 74 - 99 mg/dL [...] Comment 11/07/2024 9:36 AM EDT [facility]ALTH[facility]ARE [facility] Rollway Worker ID Brigitte Castellon 11/07/2024 9:36 AM EDT HEALTHCARE LAB Device ID [id number] 11/07/2024 9:36 AM EDT HEALTHCARE LAB Specimen Type POC Capillary 11/07/2024 9:36 AM EDT [facility] Blood Capillary blood specimen / Unknown 11/07/2024 9:34 AM EDT 11/07/2024 9:36 AM EDT Nathaly Nowak MD LAB POINT OF CARE TE ST DOCKED DEVICE UNSOLICITED RESULTS Final Result [facility] [address] [place] [address] * (ABNORMAL) POCT glucose meter (11/07/2024 8:20 AM EDT) [facility] POCT Glucose 137(H) 74 - 99 mg/dL [...] Comment 11/07/2024 8:22 AM EDT [facility]ALTHCARE LAB Rollway Worker ID Estefani Sheth Chris 11/07/2024 8:22 AM EDT HEALTHCARE LAB Device ID [id number] 11/07/2024 8:22 AM EDT HEALTHCARE LAB Specimen Type POC Capillary 11/07/2024 8:22 AM EDT [facility]ALTH[facility]ARE LAB Blood Capillary blood specimen / Unknown 11/07/2024 8:20 AM EDT 11/07/2024 8:22 AM EDT Nathaly Nowak MD LAB POINT OF CARE TE ST DOCKED DEVICE UNSOLICITED RESULTS Final Result [facility] [address] [place] [address] * (ABNORMAL) POCT glucose meter (11/07/2024 7:21 [...] Comment 11/07/2024 7:22 AM EDT [facility]ALTH[facility]ARE [facility] Rollway Worker ID Brigitte Castellon 11/07/2024 7:22 AM EDT HEALTHCARE LAB Device ID [id number] 11/07/2024 7:22 AM EDT HEALTHCARE LAB Specimen Type POC Capillary 11/07/2024 7:22 AM EDT [facility]ALTH[facility]ARE LAB Blood Capillary blood specimen / Unknown 11/07/2024 7:21 AM EDT 11/07/2024 7:22 AM EDT Nathaly Nowak MD LAB POINT OF CARE TE ST DOCKED DEVICE UNSOLICITED RESULTS Final Result [facility] [address] [place] [address] * (ABNORMAL) POCT glucose meter (11/07/2024 6:25 [...] Comment 11/07/2024 6:27 AM EDT [facility]ARE [facility] Rollway Worker ID Nelda Gerber 11/08/19 6:27 AM EDT HEALTHCARE LAB Device ID [id number] 11/07/2024 6:27 AM EDT HEALTHCARE LAB Specimen Type POC Capillary 11/07/2024 6:27 AM EDT [facility]ALTH[facility]ARE LAB Blood Capillary blood specimen / Unknown 11/07/2024 6:25 AM EDT 11/07/2024 6:27 AM EDT Nathaly Nowak MD LAB POINT OF CARE TE ST DOCKED DEVICE UNSOLICITED RESULTS Final Result [facility] [address] [place] [address] * (ABNORMAL) POCT glucose meter (11/07/2024 5:03 AM EDT) [facility] POCT Glucose 139(H) 74 - 99 mg/dL [...] Comment 11/07/2024 5:08 AM EDT HEALTHCARE [facility] Roll[employer] Worker ID Nelda Gerber 11/08/19 5:08 AM EDT HEALTHCARE LAB Device ID [id number] 11/07/2024 5:08 AM EDT HEALTHCARE LAB Specimen Type POC Capillary 11/07/2024 5:08 AM EDT [facility]ALTH[facility]ARE LAB Blood Capillary blood specimen / Unknown 11/07/2024 5:03 AM EDT 11/07/2024 5:08 AM EDT Nathaly Nowak MD LAB POINT OF CARE TE ST DOCKED DEVICE UNSOLICITED RESULTS Final Result Performing Organization Address City/[facility] Co de Phone Number HEALTHCARE LAB [address] [place] [address] * (ABNORMAL) POCT glucose meter (11/07/2024 4:16 [...] for testing. Comment 11/07/2024 4:18 AM EDT [facility] Rollway Worker ID Nelda Gerber 11/08/19 4:18 AM EDT [facility] Device ID [id number] 11/07/2024 4:18 AM EDT [facility] Specimen Type POC Capillary 11/07/2024 4:18 AM EDT [facility] Blood Capillary blood specimen / Unknown 11/07/2024 4:16 AM EDT 11/07/2024 4:18 AM EDT Nathaly Nowak MD LAB POINT OF CARE TE ST DOCKED DEVICE UNSOLICITED RESULTS Final Result Performing Organization Address City/[facility]/ZIP Co de Phone Number [facility] [address] [place] [address] * (ABNORMAL) POCT glucose meter (11/07/2024 3:21 [...] Comment 11/07/2024 3:23 AM EDT HEALTHCARE LAB Rollway Worker ID Nelda Gerber 11/08/19 3:23 AM EDT HEALTHCARE LAB Device ID [id number] 11/07/2024 3:23 AM EDT HEALTHCARE LAB Specimen Type POC Capillary 11/07/2024 3:23 AM EDT [facility]ALTH[facility]ARE LAB Blood Capillary blood specimen / Unknown 11/07/2024 3:21 AM EDT 11/07/2024 3:23 AM EDT Nathaly Nowak MD LAB POINT OF CARE TE ST DOCKED DEVICE UNSOLICITED RESULTS Final Result Performing Organization Address City/[facility] Co de Phone Number HEALTHCARE LAB [address] [place] [address] * (ABNORMAL) POCT glucose meter (11/07/2024 2:10 [...] Comment 11/07/2024 2:12 AM EDT [facility]ALTH[facility]ARE [facility] Rollway Worker ID Nelda Gerber 11/08/19 2:12 AM EDT HEALTHCARE LAB Device ID [id number] 11/07/2024 2:12 AM EDT HEALTHCARE LAB Specimen Type POC Capillary 11/07/2024 2:12 AM EDT HEALTH[facility]ARE LAB Blood Capillary blood specimen / Unknown 11/07/2024 2:10 AM EDT 11/07/2024 2:12 AM EDT Nathaly Nowak MD LAB POINT OF CARE TE ST DOCKED DEVICE UNSOLICITED RESULTS Final Result Performing Organization Address City/[facility]/ZIP Co de Phone Number HEALTHCARE LAB [address] [place] [address] * (ABNORMAL) POCT glucose meter (11/07/2024 1:08 [...] for testing. Comment 11/07/2024 1:10 AM EDT [facility] Rollway Worker ID Nelda Gerber 11/08/19 1:10 AM EDT [facility] Device ID [id number] 11/07/2024 1:10 AM EDT HEALTHCARE LAB Specimen Type POC Capillary 11/07/2024 1:10 AM EDT [facility] Blood Capillary blood specimen / Unknown 11/07/2024 1:08 AM EDT 11/07/2024 1:10 AM EDT us Nathaly Nowak MD LAB POINT OF CARE TE ST DOCKED DEVICE UNSOLICITED RESULTS Final Result Performing Organization Address City/State/[facility] Co de Phone Number [facility] [address] [place] [id number] * (ABNORMAL) POCT glucose meter (11/07/2024 12:10 [...] 11/07/2024 12:13 AM EDT [facility] [employer] Worker ID Nelda Gerber 11/08/19 12:13 AM EDT [facility] Device ID [id number] 11/07/2024 12:13 AM EDT HEALTHCARE LAB Specimen Type POC Capillary 11/07/2024 12:13 AM EDT [facility]ALTH[facility]ARE LAB Blood Capillary blood specimen / Unknown 11/07/2024 12:10 AM EDT 11/07/2024 12:13 AM EDT Nathaly Nowak MD LAB POINT OF CARE TE ST DOCKED DEVICE UNSOLICITED RESULTS Final Result Performing Organization Address City/[facility]/ZIP Co de Phone Number HEALTHCARE LAB [address] [place] [address] * (ABNORMAL) POCT glucose meter (11/06/2024 11:14 [...] Comment 11/06/2024 11:16 PM EDT [facility]ALTH[facility]ARE LAB [employer] Worker ID Nelda Gerber 11/07/19 11:16 PM EDT HEALTHCARE LAB Device ID [id number] 11/06/2024 11:16 PM EDT [facility] Specimen Type POC Capillary 11/06/2024 11:16 PM EDT [facility] Blood Capillary blood specimen / Unknown 11/06/2024 11:14 PM EDT 11/06/2024 11:16 PM EDT us Nathaly Nowak MD LAB POINT OF CARE TE ST DOCKED DEVICE UNSOLICITED RESULTS Final Result [facility] [address] [place] [address] * (ABNORMAL) POCT glucose meter (11/06/2024 10:07 [...] Comment 11/06/2024 10:09 PM EDT [facility]ALTH[facility]ARE [facility] [employer] Worker ID Nelda Gerber 11/07/19 10:09 PM EDT HEALTHCARE LAB Device ID [id number] 11/06/2024 10:09 PM EDT HEALTHCARE LAB Specimen Type POC Capillary 11/06/2024 10:09 PM EDT [facility]ALTH[facility]ARE LAB Blood Capillary blood specimen / Unknown 11/06/2024 10:07 PM EDT 11/06/2024 10:09 PM EDT Nathaly Nowak MD LAB POINT OF CARE TE ST DOCKED DEVICE UNSOLICITED RESULTS Final Result Performing Organization Address City/State/[facility] Co de Phone Number HEALTHCARE LAB [address] [place] [address] * (ABNORMAL) POCT glucose meter (11/06/2024 8:22 PM EDT) [facility] Signature POCT Glucose 256(H) 74 - [...] Comment 11/06/2024 8:25 PM EDT [facility]ALTH[facility]ARE LAB Rollway Worker ID Nelda Gerber 11/07/19 8:25 PM EDT HEALTHCARE LAB Device ID [id number] 11/06/2024 8:25 PM EDT HEALTHCARE LAB Specimen Type POC Capillary 11/06/2024 8:25 PM EDT [facility]ALTH[facility] LAB Blood Capillary blood specimen / Unknown 11/06/2024 8:22 PM EDT 11/06/2024 8:25 PM EDT us Nathaly Nowak MD LAB POINT OF CARE TE ST DOCKED DEVICE UNSOLICITED RESULTS Final Result [facility] [address] [place] [address] * (ABNORMAL) POCT glucose meter (11/06/2024 7:31 [...] for testing. Comment 11/06/2024 7:32 PM EDT [facility] Rollway Worker ID Nelda Gerber 11/07/19 7:32 PM EDT [facility] Device ID [id number] 11/06/2024 7:32 PM EDT [facility] Specimen Type POC Capillary 11/06/2024 7:32 PM EDT [facility] Blood Capillary blood specimen / Unknown 11/06/2024 7:31 PM EDT 11/06/2024 7:32 PM EDT us Nathaly Nowak MD LAB POINT OF CARE TE ST DOCKED DEVICE UNSOLICITED RESULTS Final Result Performing Organization Address City/[facility]/ZIP Co de Phone Number [facility] [address] [place] [address] * (ABNORMAL) POCT glucose meter (11/06/2024 6:15 [...] Comment 11/06/2024 6:17 PM EDT HEALTHCARE LAB Roll[employer] Worker ID Estefani Sheth 11/06/2024 6:17 PM EDT HEALTHCARE LAB Device ID [id number] 11/06/2024 6:17 PM EDT HEALTHCARE LAB Specimen Type POC Capillary 11/06/2024 6:17 PM EDT [facility]ALTH[facility]ARE LAB Blood Capillary blood specimen / Unknown 11/06/2024 6:15 PM EDT 11/06/2024 6:17 PM EDT Nathaly Nowak MD LAB POINT OF CARE TE ST DOCKED DEVICE UNSOLICITED RESULTS Final Result Performing Organization Address City/[facility]/ZIP Co de Phone Number HEALTHCARE LAB [address] [place] [address] * (ABNORMAL) POCT glucose meter (11/06/2024 4:57 [...] Comment 11/06/2024 4:58 PM EDT [facility]ALTH[facility] [employer] Worker ID Estefani Sheth 11/06/2024 4:58 PM EDT HEALTHCARE LAB Device ID [id number] 11/06/2024 4:58 PM EDT HEALTHCARE LAB Specimen Type POC Capillary 11/06/2024 4:58 PM EDT [facility]ALTH[facility]ARE LAB Blood Capillary blood specimen / Unknown 11/06/2024 4:57 PM EDT 11/06/2024 4:58 PM EDT Nathaly Nowak MD LAB POINT OF CARE TE ST DOCKED DEVICE UNSOLICITED RESULTS Final Result Performing Organization Address City/[facility]/ZIP Co de Phone Number HEALTHCARE LAB [address] [place] [address] * (ABNORMAL) POCT glucose meter (11/06/2024 2:08 PM EDT) [facility] POCT Glucose 253(H) 74 - 99 mg/dL [...] Comment 11/06/2024 2:09 PM EDT [facility]ALTH[facility] [employer] Worker ID Brigitte Castellon 11/06/2024 2:09 PM EDT HEALTHCARE LAB Device ID [id number] 11/06/2024 2:09 PM EDT HEALTHCARE LAB Specimen Type POC Capillary 11/06/2024 2:09 PM EDT [facility] Blood Capillary blood specimen / Unknown 11/06/2024 2:08 PM EDT 11/06/2024 2:09 PM EDT us Nathaly Nowak MD LAB POINT OF CARE TE ST DOCKED DEVICE UNSOLICITED RESULTS Final Result Performing Organization Address City/State/[facility] Co de Phone Number [facility] [address] [place] [address] * (ABNORMAL) POCT glucose meter (11/06/2024 12:27 PM EDT) [facility] POCT Glucose 228(H) 74 - 99 mg/dL [...] Comment 11/06/2024 12:28 PM EDT [facility]ALTH[facility]ARE [facility] [employer] Worker ID Jacinta aGlloway 11/06/2024 12:28 PM EDT HEALTHCARE LAB Device ID [id number] 11/06/2024 12:28 PM EDT HEALTHCARE LAB Specimen Type POC Capillary 11/06/2024 12:28 PM EDT [facility] Blood Capillary blood specimen / Unknown 11/06/2024 12:27 PM EDT 11/06/2024 12:28 PM EDT Nathaly Nowak MD LAB POINT OF CARE TE ST DOCKED DEVICE UNSOLICITED RESULTS Final Result [facility] [address] [place] [address] * (ABNORMAL) Tissue Culture and Gram Stain (11/06/2024 11:34 AM EDT) Culture Moderate Growth 7:35 AM EDT [facility] Culture 2+ Enterobacter cloacae complex(A) ANGÉLICA 11/15/2024 7:35 AM EDT [facility] Comment: This isolate has been identified using the FDA Approved [employer] [place] System The organism value for this result has been updated. These results have been appended to the previously preliminary verified report. Edited result: Previously reported as Gram Negative Jesus on 11/07/2024 at 1434 EDT. Culture 2+ Streptococcus mitis/oralis group(A) ANGÉLICA 11/15/2024 7:35 AM EDT [facility] Comment: This isolate has been identified using the FDA Approved [employer] [place] System The organism value for this result has been updated. These results have been appended to the previously preliminary verified report. Culture 2+ Pasteurella stomatis(A) ANGÉLICA 11/15/2024 7:35 AM EDT [facility] Comment: This result was determined by [employer]DI tof mass spectrometry using the [employer] database and is for research use only. The organism value for this result has been updated. These results have been appended to the previously preliminary verified report. Gram Stain Result Few Gram negative rods(A) 11/15/2024 7:35 AM EDT [facility] Gram Stain Result Moderate Polymorphonuclear leukocytes(A) 11/15/2024 7:35 AM EDT [facility] Gram Stain Result Few Gram positive cocci in pairs(A) 11/15/2024 7:35 AM EDT [facility] Tissue Topography unknown / Unknown 11/06/2024 11:34 AM EDT 11/06/2024 12:18 PM EDT Comment:Pre-op diagnosis: Surgical wound infection [T81.49XA] [facility] - 11/15/2024 7:35 AM EDT PharmD Hunter Alberts requests penicillin, ceftriaxone and vancomycin on Streptococcus Organism Antibiotic Method Susceptibility Enterobacter cloacae complex Amoxicillin/Clavulanate ANÉGLICA >16/8 ug/ml: Resistant Enterobacter cloacae complex Ampicillin [...] Nathaly Nowak MD LAB MICROBIOLOGY - GENERAL [facility] Edited Result - Final [facility] [address] [place] [address] * (ABNORMAL) Anaerobic Culture (11/06/2024 11:34 AM EDT) Culture No anaerobes isolated 11/14/2024 1:25 PM EDT [facility] Culture Staphylococcus pseudintermedius( A) 11/14/2024 1:25 PM EDT [facility] Comment: This result was determined by [employer]DI tof mass spectrometry using the [employer] database and is for research use only. This is an appended report. These results have been appended to a previously final verified report. Tissue Topography unknown / Unknown 11/06/2024 11:34 AM EDT 11/06/2024 12:18 PM EDT Comment:Pre-op diagnosis: Surgical wound infection [T81.49XA] Narrative [facility] - 11/14/2024 1:25 PM [...] Nathaly Nowak MD LAB MICROBIOLOGY - GENERAL [place] LAM Edited Result - Final Performing Organization Address [facility] Co de Phone Number [facility] [address] [place] [address] * (ABNORMAL) Routine Culture and Gram Stain (11/06/2024 11:29 AM EDT) Culture Moderate Growth 5:29 PM EDT [facility] Culture Enterobacter cloacae complex(A) 11/08/2024 5:29 PM EDT [facility] Comment: This isolate has been identified using the FDA Approved [employer] [place] System For susceptibility results refer to: - [id number] The organism value for this result has been updated. These results have been appended to the previously preliminary verified report. Gram Stain Result No polymorphonuclear leukocytes seen 11/08/2024 5:29 PM EDT [facility] Gram Stain Result No organisms seen 11/08/2024 5:29 PM EDT [facility] Swab Topography unknown / Unknown 11/06/2024 11:29 AM EDT 11/06/2024 12:19 PM EDT Comment:Pre-op diagnosis: Surgical wound infection [T81.49XA] Nathaly Nowak MD LAB MICROBIOLOGY - GENERAL [place] [facility] Final Result Performing Organization Address [facility] Co de Phone Number [facility] [address] [place] [address] * Fungal Culture, Routine (11/06/2024 11:29 AM EDT) Culture No Fungal Growth at 1 Week 11/13/2024 8:29 AM EDT [facility] Swab Topography unknown / Unknown 11/06/2024 11:29 AM EDT 11/06/2024 12:19 PM EDT Comment:Pre-op diagnosis: Surgical wound infection [T81.49XA] us Nathaly Nowak MD LAB MICROBIOLOGY - GENERAL [facility] Final Result [facility] [address] [place] [address] * (ABNORMAL) Anaerobic Culture (11/06/2024 11:29 AM EDT) Culture No anaerobes isolated 11/14/2024 1:25 PM EDT [facility] Culture Streptococcus mitis/oralis group(A) 11/14/2024 1:25 PM EDT [facility] Comment: This result was determined by MALDI tof mass spectrometry using the [employer] database and is for research use only. The organism value for this result has been updated. These results have been appended to the previously preliminary verified report. This is a corrected result. Previous organism was Mixed skin clifton on 11/10/2024 at 0718 EDT. Culture Staphylococcus pseudintermedius( A) 11/14/2024 1:25 PM EDT [facility] Comment: This isolate has been identified using the FDA Approved [employer] [place] System This is an appended report. These results have been appended to a previously final verified report. Swab Topography unknown / Unknown 11/06/2024 11:29 AM EDT 11/06/2024 12:19 PM EDT Comment:Pre-op diagnosis: Surgical wound infection [T81.49XA] Narrative [facility] - 11/14/2024 1:25 PM [...] Edited Result - Final Performing Organization Address City/[facility] [facility] Co de Phone Number [facility] [address] [place] [address] * Routine Culture and Gram Stain (11/06/2024 11:28 AM EDT) Culture No growth at day 4 2024 11:24 AM EDT [facility] Gram Stain Result No organisms seen 11/10/2024 11:24 AM EDT [facility] Gram Stain Result No polymorphonuclear leukocytes seen 11/10/2024 11:24 AM EDT [facility] Swab Topography unknown / Unknown 11/06/2024 11:28 AM EDT 11/06/2024 12:20 PM EDT Comment:Pre-op diagnosis: Surgical wound infection [T81.49XA] Nathaly Nowak MD LAB MICROBIOLOGY - GENERAL ORDAna FRITZ Final Result Performing Organization Address [facility] Co de Phone Number [facility] [address] [place] [address] * Fungal Culture, Routine (11/06/2024 11:28 AM EDT) Culture No Fungal Growth at 1 Week 11/13/2024 8:29 AM EDT [facility] Swab Topography unknown / Unknown 11/06/2024 11:28 AM EDT 11/06/2024 12:20 PM EDT Comment:Pre-op diagnosis: Surgical wound infection [T81.49XA] Nathaly Nowak MD LAB MICROBIOLOGY - GENERAL ORDE LAM Final Result Performing Organization Address City/[facility] Co de Phone Number [facility] [address] [place] [address] * Anaerobic Culture (11/06/2024 11:28 AM EDT) Culture No growth at day 4 11/13/2024 12:53 PM EDT [facility] Swab Topography unknown / Unknown 11/06/2024 11:28 AM EDT 11/06/2024 12:20 PM EDT Comment:Pre-op diagnosis: Surgical wound infection [T81.49XA] Nathaly Nowak MD LAB MICROBIOLOGY - GENERAL ATIYA FRITZ Final Result Performing Organization Address [facility] [place] [address] * (ABNORMAL) POCT glucose meter (11/06/2024 10:16 AM EDT) POCT Glucose 194(H) 74 - 99 mg/dL 11/06/2024 10:18 AM EDT [facility] Comment:Accuracy of a glucos e result [...] 11/06/2024 10:18 AM EDT [facility] [employer] Worker ID Elias, Lacy 11/07/19 10:18 AM EDT [facility] Device ID [id number] 11/06/2024 10:18 AM EDT [facility] Specimen Type POC Capillary 11/06/2024 10:18 AM EDT [facility] Blood Capillary blood specimen / Unknown 11/06/2024 10:16 AM EDT 11/06/2024 10:18 AM EDT Nathaly Nowak MD LAB POINT OF CARE TE ST DOCKED DEVICE UNSOLICITED RESULTS Final Result Performing Organization Address City/[facility] Co de Phone Number [facility] [address] [place] [address] * (ABNORMAL) POCT glucose meter (11/06/2024 5:58 [...] Comment 11/06/2024 6:01 AM EDT [facility] [employer] Worker ID Raj Laird 11/07/19 6:01 AM EDT [facility] Device ID [id number] 11/06/2024 6:01 AM EDT [facility] Specimen Type POC Capillary 11/06/2024 6:01 AM EDT [facility] Blood Capillary blood specimen / Unknown 11/06/2024 5:58 AM EDT 11/06/2024 6:01 AM EDT us Nathaly Nowak MD LAB POINT OF CARE TE ST DOCKED DEVICE UNSOLICITED RESULTS Final Result Performing Organization Address City/[facility] Co de Phone Number [facility] [address] [place] [address] * (ABNORMAL) POCT glucose meter (11/06/2024 5:36 [...] Comment 11/06/2024 5:38 AM EDT [facility] [employer] Worker ID Shahid Sanches 11/06/2024 5:38 AM EDT [facility] Device ID [id number] 11/06/2024 5:38 AM EDT [facility] Specimen Type POC Capillary 11/06/2024 5:38 AM EDT [facility] Blood Capillary blood specimen / Unknown 11/06/2024 5:36 AM EDT 11/06/2024 5:38 AM EDT us Nathaly Nowak MD LAB POINT OF CARE TE ST DOCKED DEVICE UNSOLICITED RESULTS Final Result Performing Organization Address City/State/[facility] Co de Phone Number [facility] [address] [place] [address] * (ABNORMAL) Hemoglobin A1c (11/06/2024 1:07 AM EDT) Hemoglobin A1c 7.6(H) <5.7 % 11/06/2024 11:09 AM EDT [facility] Blood Venous blood specimen / Unknown Venipuncture / Unknown 11/06/2024 1:07 AM EDT 11/06/2024 1:26 AM EDT Narrative [facility] - 11/06/2024 11:09 AM EDT HA1C Interpretive Data: Diagnosis of Diabetes: Diabetic > or = 6.5% Pre-diabetic 5.7 to 6.4% Non-diabetic < or = 5.6% Glycemic Targets for Type I and Type II Diabetics: Non- Adults <7.0% Adults <6.0% Children and Adolescents <7.5% Source: [place] [employer]. Standards of medical care in diabetes,2017. Diabetes Care.2017:40 (suppl 1):S1-S135. us Nathaly Nowak MD LAB BLOOD ORDERABLES Final Resu lt Performing Organization Address [facility] Co de Phone Number [facility] [address] [place] [address] * Blood Culture (Aerobic/Anaerobet Set) (11/06/2024 1:07 AM EDT) Culture No growth at day 5 11/11/2024 2:49 AM EDT [facility] Blood Structure of right hand / Unknown Venipuncture / Unknown 11/06/2024 1:07 AM EDT 11/06/2024 2:36 AM EDT Nathaly Nowak MD LAB MICROBIOLOGY - GENERAL ORDE RABONEIDA Final Result Performing Organization Address [facility] Co de Phone Number [facility] [address] [place] [address] * Blood Culture (Aerobic/Anaerobet Set) (11/06/2024 1:07 AM EDT) Culture No growth at day 5 11/11/2024 3:01 AM EDT [facility] Blood Structure of antecubital vein / Unknown Venipuncture / Unknown 11/06/2024 1:07 AM EDT 11/06/2024 2:36 AM EDT us Nathaly Nowak MD LAB MICROBIOLOGY - GENERAL ORDE LAM Final Result Performing Organization Address [facility] Co de Phone Number [facility] [address] [place] [address] * (ABNORMAL) Basic metabolic panel (11/06/2024 1:07 AM EDT) Glucose, Plasma 207(H) 74 - 99 mg/dL 11/06/2024 1:41 AM EDT [facility] BUN, Plasma 20 8 - 23 mg/dL 11/06/2024 1:41 AM EDT [facility] Creatinine, Plasma 0.92 0.70 - 1.20 mg/dL 11/06/2024 1:41 AM EDT [facility] BUN/Creatinine Ratio 22 11/06/2024 1:41 AM EDT [facility] Sodium, Plasma 136 136 - 145 mmol/L 11/06/2024 1:41 AM EDT [facility] Potassium, Plasma 4.5 3.6 - 4.9 mmol/L 11/06/2024 1:41 AM EDT [facility] Chloride, Plasma 104 97 - 107 mmol/L 11/06/2024 1:41 AM EDT [facility] CO2, Plasma 22 22 - 29 mmol/L 11/06/2024 1:41 AM EDT [facility] Anion Gap 10 6 - 16 mmol/L 11/06/2024 1:41 AM EDT [facility] Total Calcium, Plasma 9.0 8.9 - 10.2 mg/dL 11/06/2024 1:41 AM EDT [facility] eGFRcr 92.3 mL/min/1.7 3m*2 11/06/2024 1:41 AM EDT [facility] Comment:Reported eGFRcr in m L/min/1.73m2 is based the CKD-EPI 2020 equation that does not use a race coefficient. Blood Venous blood specimen / Unknown Venipuncture / Unknown 11/06/2024 1:07 AM EDT 11/06/2024 1:12 AM EDT us Nathaly Nowak MD LAB BLOOD ORDERABLES Final Resu lt Performing Organization Address City/[facility]/ZIP Co de Phone Number [facility] [address] [place] [address] * Phosphorus (11/06/2024 1:07 AM EDT) Phosphorus, Plasma 3.2 2.5 - 4.5 mg/dL 11/06/2024 1:41 AM EDT [facility] Blood Venous blood specimen / Unknown Venipuncture / Unknown 11/06/2024 1:07 AM EDT 11/06/2024 1:12 AM EDT us Nathaly Nowak MD LAB BLOOD ORDERABLES Final Resu lt [facility] [address] [place] [address] * Magnesium (11/06/2024 1:07 AM EDT) Magnesium, Plasma 2.2 1.9 - 2.4 mg/dL 11/06/2024 1:41 AM EDT [facility] Blood Venous blood specimen / Unknown Venipuncture / Unknown 11/06/2024 1:07 AM EDT 11/06/2024 1:12 AM EDT us Nathaly Nowak MD LAB BLOOD ORDERABLES Final Resu lt [facility] [address] [place] [address] * (ABNORMAL) CBC (11/06/2024 1:07 AM EDT) WBC Count 9.70 3.70 - 10.30 10*3/uL LAB HEMATOLOGY METHOD 11/06/2024 1:19 AM EDT [facility] RBC Count 2.89(L) 4.60 - 6.10 10*6/uL LAB HEMATOLOGY METHOD 11/06/2024 1:19 AM EDT [facility] HGB 8.8(L) 13.7 - 17.5 g/dL LAB HEMATOLOGY METHOD 11/06/2024 1:19 AM EDT [facility] HCT 26.2(L) 40.0 - 51.0 % LAB HEMATOLOGY METHOD 11/06/2024 1:19 AM EDT [facility] Platelet Count 542(H) 155 - 369 10*3/uL LAB HEMATOLOGY METHOD 11/06/2024 1:19 AM EDT [facility] MCV 91 79 - 98 fL LAB HEMATOLOGY METHOD 11/06/2024 1:19 AM EDT [facility] MCH 30.4 26.0 - 32.0 pg LAB HEMATOLOGY METHOD 11/06/2024 1:19 AM EDT [facility] MCHC 33.6 30.7 - 35.5 g/dL LAB HEMATOLOGY METHOD 11/06/2024 1:19 AM EDT [facility] RDW 13.2 11.5 - 14.5 % LAB HEMATOLOGY METHOD 11/06/2024 1:19 AM EDT [facility] MPV 8.7(L) 8.8 - 12.5 fL LAB HEMATOLOGY METHOD 11/06/2024 1:19 AM EDT [facility] nRBC 0.0 <=0.0 per 100 WBCs LAB HEMATOLOGY METHOD 11/06/2024 1:19 AM EDT [facility] Blood Venous blood specimen / Unknown Venipuncture / Unknown 11/06/2024 1:07 AM EDT 11/06/2024 1:12 AM EDT us Nathaly Nowak MD LAB BLOOD ORDERABLES Final Resu lt Performing Organization Address [facility]/ZIP Co de Phone Number [facility] [address] [place] [address] * Gold Top (11/06/2024 12:58 AM EDT) Extra Hold for add-ons 11/06/2024 3:21 AM EDT [facility] Comment:Auto resulted. Blood Venous blood specimen / Unknown 11/06/2024 12:58 AM EDT 11/06/2024 1:13 AM EDT us Nathaly Nowak MD LAB BLOOD ORDERABLES Final Resu lt Performing Organization Address [facility]/ZIP Co de Phone Number [facility] [address] [place] [address] * Gold Top (11/06/2024 12:58 AM EDT) Extra Hold for add-ons 11/06/2024 3:21 AM EDT [facility] Comment:Auto resulted. Blood Venous blood specimen / Unknown 11/06/2024 12:58 AM EDT 11/06/2024 1:13 AM EDT us Nathaly Nowak MD LAB BLOOD ORDERABLES Final Resu lt Performing Organization Address [facility]/ZIP Co de Phone Number [facility] [address] [place] [address] * Light Green Top (11/06/2024 12:58 AM EDT) Extra Hold for add-ons 11/06/2024 3:21 AM EDT [facility] Comment:Auto resulted. Blood Venous blood specimen / Unknown 11/06/2024 12:58 AM EDT 11/06/2024 1:13 AM EDT us Nathaly Nowak MD LAB BLOOD ORDERABLES Final Resu lt Performing Organization Address [facility] Co de Phone Number [facility] [address] [place] [address] * Light Blue Top (11/06/2024 12:58 AM EDT) Extra Hold for add-ons 11/06/2024 3:21 AM EDT [facility] Comment:Auto resulted. Blood Venous blood specimen / Unknown 11/06/2024 12:58 AM EDT 11/06/2024 1:13 AM EDT us Nathaly Nowak MD LAB BLOOD ORDERABLES Final Resu lt Performing Organization Address [facility] Co de Phone Number [facility] [address] [place] [address] * Light Blue Top (11/06/2024 12:58 AM EDT) Extra Hold for add-ons 11/06/2024 3:21 AM EDT [facility] Comment:Auto resulted. Blood Venous blood specimen / Unknown 11/06/2024 12:58 AM EDT 11/06/2024 1:13 AM EDT us Nathaly Nowak MD LAB BLOOD ORDERABLES Final Resu lt Performing Organization Address [facility] de Phone Number [facility] [address] [place] [address] * (ABNORMAL) POCT glucose meter (11/06/2024 12:45 [...] Comment 11/06/2024 12:48 AM EDT [facility] [employer] Worker ID Raj Laird 11/07/19 12:48 AM EDT [facility] Device ID [id number] 11/06/2024 12:48 AM EDT [facility] Specimen Type POC Capillary 11/06/2024 12:48 AM EDT [facility] Blood Capillary blood specimen / Unknown 11/06/2024 12:45 AM EDT 11/06/2024 12:48 AM EDT Nathaly Nowak MD LAB POINT OF CARE TE ST DOCKED DEVICE UNSOLICITED RESULTS Final Result Performing Organization Address City/State/[facility] Co de Phone Number [facility] [address] [place] [address] documented in this encounter Visit Diagnoses Diagnosis [...] on Mon11/06/24 at 0753, Until [facility] 11/14/24 at 1804, Routine, On Unit - [...] Until Discontinued, Routine 0938 (Given - Provider: Deovra Bo) 0839 (Given - Provider: Devora Bo) [...] - Provider: Devora Bo)203 (Given - Provider: oJnathan Vale, CHRISTIAN) 0856 (Given - Provider: Yazmin [...] documented as of this encounter Care Teams Lotteries Agent Relationship Specialty Start Date End Date Asad Victor MD [address] [place] [address] PCP - General 10/07/22 documented as of this encounter
--- OUTSIDE RECORDS SUMMARY | 2024-11-06 10:08 | XMS_ITS | Encounter Summary ---
Author Organization Healthcare Address [address] [place] [address] Care Team Providers Care V Belt Coverer Name Role Phone Asad Victor MD Primary Care Provider + [phone] Reason for Visit * Reason Comments Post-op Problem Wound Check * Auth/Cert (Routine) Specialty Diagnoses / Procedures Referred By Contac t Referred To Contact Diagnoses Wound infection Post-op Vasc Sx wounds - sx on 10/17 at Nathaly Nowak MD [address] [address] Phone: tel: fax: [facility] Emergency Department [address] [place] [address] Phone: tel: Referral ID Status Reason Start Date Expiration Date Visits Re quested Visits Authorized [id number] 1 1 Encounter Details Date Type Department Care Team (Late st Contact Info) Description 11/06/2024 10:08 AM EDT - 11/06/2024 11:38 AM EDT Surgery [facility] OPERATING ROOM [address] [place] [address] Nathaly Nowak MD [id number] [place] [address] Left groin exploration and washout, [...] living in a halfway (including now)? No 11/07/2024 CAGE ASSESSMENT Answer [...] drink first t dino in the morning (EYE-MOP MAKER) to steady your nerves or to get rid of a hangover? 0 10/18/2021 CAGE Questionnaire Score 0 022 Utilities Answer Date Recorded In the past 12 months has [employer], gas, oil, or water [facility] threatened to shut off services in your [...] Carmona with any questions or concerns at [phone]. It is important that you get your [...] Note Bev Borja 64 y.o. 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 Please arrive at 11 am daily. [facility] [address] Go to Wound care clinic. First appointment is 1:10 pm. Please call [phone] with scheduling concerns. Discharge Transportation: Transportation Anticipated: medical transport Transportation Home at Discharge: Medical Transport Follow Up Transport: Transportation Needed to Follow up Appoinments: Medical Transport Additional Comments: Patient discharging home. No other SW needs identified. Mariia Monterroso PROPERTY CLAIMS ADJUSTER * Discharge Summary - Melecio Echevarria DO - 11/14/2024 12:46 PM EDT Hospitalization Admit Date/Time: 11/05/2024 9:45 PM Admitting Attending: Nathaly Nowak Discharge Date: 11/14/2024 Discharge Attending Physician: Nathaly Nowak MD PCP name and Address: Asad Victor MD (Inactive) [address] [place] [address] / [place] [address] Referring provider name and address: Wade Cowart, DO [address] [place] [address] Chief Concern, Brief History of Present Illness, and Hospital Course Mr. Borja is a 64 y/o male that presented to [facility] on 11/06/2024 for surgical wound infection s/p [...] Your Medications [facility] - GLENDA Solorzano - [address], [place] [address] ertapenem injection micafungin injection Discharge Diagnosis Medical [...] Time Provider Department Center 11/26/2024 2:00 PM [facility] 11/26/2024 2:30 PM [facility] 11/26/2024 3:20 PM [facility]ab[facility] Schuster [facility] 11/29/2024 2:30 PM Oscar Appiah MD [id number] [place] Test Results Pending At Discharge Pending Labs [...] a 64 y/o male that presented to [facility] on 11/06/2024 for surgical wound infection s/p [...] portions of the procedure(s) and immediately available [facility] the entire duration. See resident note for details. * Progress Notes - Mariia Monterroso - 11/13/2024 1:57 PM EDT Case Management Adult Progress Note Bev Borja 64 y.o. male CSN: [id number] Admission: 11/05/2024 9:45 PM Primary Problem: Wound infection Wound vac to be delivered today by at bedside. SW sent referral/orders to [facility] (fax [phone]) and infusion clinic (fax [phone]). Plan to discharge tomorrow. SW will continue to follow. Mariia Monterroso PROPERTY CLAIMS ADJUSTER * Progress Notes - Bianca Knight PharmD - 11/13/2024 12:55 PM EDT Vancomycin therapy has been stopped per ID recommendation. Pharmacist will sign off from dosing and monitoring vancomycin. Please re- consult a pharmacist if more vancomycin is indicated. Bianca Knight PharmD, [facility] * Progress Notes - Ailin [...] Lumen PICC Antimicrobial Regimen: IV Ertapenem 1g [id number] start date:11/06/2024 Projected End date:12/18/2024 IV Micafungin 150mg [id number] Start date: 11/12/2024 Projected End Date: 12/24/2024 [...] OPAT Team Attn: Dr Kraus Fax #: [phone] Appointments: (Dr Appiah 08/02/2024 at 2.30pm) at: [facility]: [address] [place] [address] (Select Option 3 for IV Antibiotic / PICC line related issues) For questions regarding OPAT prior to discharge, reach out to the OPAT team via [employer] Secure Chat (Group: OPAT Referral Team). For all questions regarding OPAT after discharge should be directed to the OPAT Team at (Select Option 3 for IV Antibiotics/PICC Issues) between 8am-5pm. After 5 pm, or during weekends/ holidays, please call the paging circular head saw operator at to reach the on-call ID [...] [facility] Department of Surgery Division of Vascular Surgery Surgery Progress Note 11/13/24 Bev Borja Subjective Subjective: HPI 64yoM PMHx COPD, T2DM, HLD, HTN, RLS, CAD s/p PCI (on Xarelto) s/p pacemaker c/b left SANDIP pseudoaneurysm s/p thrombin injection 09/21/24, CLI s/p left femoral endarterectomy with EIA/RESAW TAILER stenting 10/17/24, who presented to [facility] 11/05/2024 with wound infection. [...] 09/21/24, CLI s/p left femoral endarterectomy with EIA/RESAW TAILER stenting 10/17/24, who presented to [facility] 11/05/2024 with wound infection. [...] the findings. Cardiac Device Check - PRE[facility] EP-Device Clinic: Pre-operative CIED Report Assessment and Sara-Procedural Reommendations: Name: Bev Borja Date: 10/17/2024 : 1960 Age: 64 y.o. Patient has a Advanced Developer: [employer] LAMINATION MACHINE OPERATOR-PM Remaining battery longevity adequate. Lead integrity [...] recommendations. Supporting reports can be found in [employer] media file. Micro: Susceptibility data from last [...] Units Date/Time Tissue Culture and Gram Stain [[id number]] (Abnormal) (Susceptibility) Collected: 11/06/24 1134 Order Status: Completed Specimen: Tissue from Other (specify site) Updated: 11/12/24 1334 Culture Moderate Growth 2+ Enterobacter cloacae complex Comment: This isolate has been identified using the FDA Approved [employer] [place] System The organism value for this result has been updated. These results have been appended to the previously preliminary verified report. Edited result: Previously reported as Gram Negative Jesus on 11/07/2024 at 1434 EDT. 2+ Streptococcus mitis/oralis group Comment: This isolate has been identified using the FDA Approved [employer] CA System The organism value for this result has been updated. These results have been appended to the previously preliminary verified report. 2+ Pasteurella stomatis Comment: This result was determined by MALDI tof mass spectrometry using the [employer] database and is for research use only. [...] stewardship team. Comprehensive GI Panel by PCR [[id number]] (Normal) Collected: 11/12/24 0950 Order Status: Completed [...] if clinically indicated. Clostridiodes (Clostridium) difficile PCR [[id number]] (Normal) Collected: 11/12/24 0950 Order Status: Completed [...] high complexity clinical laboratory testing. Anaerobic Culture [[id number]] Collected: 11/06/24 1128 Order Status: Completed Specimen: Swab from Other (specify site) Updated: 11/12/24 1118 Culture No growth at day 4 Fungal Culture, Tissue and ISIDRO [[id number]] (Abnormal) Collected: 11/06/24 1134 Order Status: Completed Specimen: Tissue from Other (specify site) Updated: 11/12/24 1033 Culture Reading Mycological 4 Weeks Rare Spring Sana parapsilosis Comment: This isolate has been identified using the FDA Approved [employer] CA System The organism value for this result has been updated. These results have been appended to the previously preliminary verified report. Edited result: Previously reported as Yeast on 11/11/2024 at 1317 EDT. ISIDRO No fungal elements seen Additional Susceptibilities and/or Identification [[id number]] Collected: 11/11/24 1240 Order Status: Completed Specimen: Tissue from Wound (specify site): Additional Susceptibilities and/or Identification [[id number]] Collected: 11/11/24 1238 Order Status: Completed Specimen: Tissue from Wound (specify site): Additional Susceptibilities and/or Identification [[id number]] Collected: 11/11/24 1237 Order Status: Completed Specimen: Tissue from Wound (specify site): AFB Culture, Non Respiratory Source and Acid Fast Stain [[id number]] Collected: 11/06/24 1134 Order Status: Completed Specimen: Tissue from Other (specify site) Updated: 11/11/24 0938 AFB Culture No Mycobacterial Growth <1 Week Acid Fast Stain No acid fast bacilli seen Blood Culture (Aerobic/Anaerobet Set) [[id number]] Collected: 11/06/24106 Order Status: Completed Specimen: Blood from AC, Left Updated: 11/11/24 0301 Culture No growth at day 5 Blood Culture (Aerobic/Anaerobet Set) [[id number]] Collected: 11/06/24106 Order Status: Completed Specimen: Blood [...] [facility]. [facility] [...] to stay a facility, plan for [facility] daily IV abx. Plan for ID [...] mg 1,000 mg Oral q6h [facility] Anthony Reyes MD 1,000 mg at 11/12/24 [...] Prevent or Manage Pain Flowsheets (Taken 11/11/2024 4314 by Jonathan Vale RN) Sensory Stimulation Regulation: care clustered lighting decreased quiet environment promoted Medication Review/Management: medications reviewed * Consults - Anabel Ovalle RD - 11/12/2024 9:59 AM EDT Adult Nutrition Evaluation Note Bev Borja 64 y.o. male CSN: [id number] Room/Bed 682/682B Nutrition evaluation type: assessment Reason for evaluation: LOS Hospital course: 64 y.o. male with PMHx significant for COPD, CAD s/p PCI (on Xarelto) s/p pacemaker c/b left SANDIP pseudoaneurysm s/p thrombin injection 09/21/24, chronic limb ischemia s/p left femoralendarterectomy with external iliac/common femoral artery stenting 10/17/24, T2DM, HLD, HTN, RLS who presented to the [facility] on 11/05/2024 with problems with his [...] (Room air) O2 Delivery Method: Face tent [place] Coma Scale Score: 15 Loi Scale [...] lb 3.6 oz) BMI (Calculated): 30.41 [place] Body Weight (kg): 67.3 Percent [place] Body Weight: 131 Adjusted Body Weight (kg): [...] oz) Estimated Needs: Kcal/ K-30 Kcal Provided: 5927-3375 Kcal Needs Based On: Adjusted weight Gm Protein/ Kg : 1.2-1.5 Protein Provided: 87-108 Protein Needs Based On: Adjusted weight Metabolic Cart Study Results: Current Nutrition Intake: Diet Order: Adult Diet Diet Texture: Regular Adult Carbohydrate Restriction: Consistent CHO 1 (4155-8480 Jatinder, 65 g/meal) Percent Meals Eaten (%): avg 63% x 6 emals Diet Experience and Nutrition History: Diet Education Provided: Will monitor Pertinent home medications: clopidogrel, docusate sodium, Lantus, Humalog, lisinopril, metoprolol tartrate, pravastatin, rivaroxaban, ropinirole, tamsulosin Sikhism needs: Nutrition Focused Physical Exam: Physical exam [...] fxn, and skin integrity Acuity Level: 3 Anaebl Ovalle, RD, LD [1] Past Medical History: Diagnosis Date Arthritis Old myocardial infarction History of myocardial infarction [2] Past Surgical History: Procedure Laterality Date ANKLE SURGERY Right CARDIAC PACEMAKER PLACEMENT CAROTID ENDARTERECTOMY N/A 2017 Endarterectomy Carotid Artery from [employer] CORONARY ANGIOPLASTY Left Coronary Angiography With Concomitant Left Heart Catheterization from [employer] CORONARY ARTERY BYPASS GRAFT N/A 2018 3V ELBOW SURGERY Right ENDARTERECTOMY Left 10/17/2024 common/SFA/Profunda thromboendarterectomy, EIA/RESAW TAILER stent HERNIA REPAIR KNEE ARTHROSCOPY Left VASCULAR SURGERY Left 09/21/2024 RESAW TAILER pseudoaneurym injection [3] Social History Tobacco Use [...] the original note were not included. [facility] Department of Surgery Division of Vascular Surgery Surgery Progress Note 11/12/24 Bev Perez Cristoferkeo Subjective Subjective: HPI 64yoM PMHx COPD, T2DM, HLD, HTN, RLS, CAD s/p PCI (on Xarelto) s/p pacemaker c/b left SANDIP pseudoaneurysm s/p thrombin injection 09/21/24, CLI s/p left femoral endarterectomy with EIA/RESAW TAILER stenting 10/17/24, who presented to [facility] 11/05/2024 with wound infection. [...] 09/21/24, CLI s/p left femoral endarterectomy with EIA/RESAW TAILER stenting 10/17/24, who presented to [facility] 11/05/2024 with wound infection. [...] the findings. Cardiac Device Check - [facility] EP-Device [facility]: Pre-operative CIED Report Assessment and Sara-Procedural Reommendations: Name: Bev Borja Date: 10/17/2024 : 1960 Age: 64 y.o. Patient has a Advanced Developer: [employer] LAMINATION MACHINE OPERATOR-PM Remaining battery longevity adequate. Lead integrity [...] recommendations. Supporting reports can be found in [employer] media file. Micro: Susceptibility data from last [...] Units Date/Time Tissue Culture and Gram Stain [[id number]] (Abnormal) (Susceptibility) Collected: 11/06/24 1134 Order Status: Completed Specimen: Tissue from Other (specify site) Updated: 11/12/24 1334 Culture Moderate Growth 2+ Enterobacter cloacae complex Comment: This isolate has been identified using the FDA Approved [employer] CA System The organism value for this result has been updated. These results have been appended to the previously preliminary verified report. Edited result: Previously reported as Gram Negative Ejsus on 11/07/2024 at 1434 EDT. 2+ Streptococcus mitis/oralis group Comment: This isolate has been identified using the FDA Approved [employer] CA System The organism value for this result has been updated. These results have been appended to the previously preliminary verified report. 2+ Pasteurella stomatis Comment: This result was determined by MALDI tof mass spectrometry using the [employer] database and is for research use only. [...] stewardship team. Comprehensive GI Panel by PCR [[id number]] (Normal) Collected: 11/12/24 0950 Order Status: Completed [...] if clinically indicated. Clostridiodes (Clostridium) difficile PCR [[id number]] (Normal) Collected: 11/12/24 0950 Order Status: Completed [...] high complexity clinical laboratory testing. Anaerobic Culture [[id number]] Collected: 11/06/24 1128 Order Status: Completed Specimen: Swab from Other (specify site) Updated: 11/12/24 1118 Culture No growth at day 4 Fungal Culture, Tissue and ISIDRO [[id number]] (Abnormal) Collected: 11/06/24 1134 Order Status: Completed Specimen: Tissue from Other (specify site) Updated: 11/12/24 1033 Culture Reading Mycological 4 Weeks Rare Spring Sana parapsilosis Comment: This isolate has been identified using the FDA Approved [employer] CA System The organism value for this result has been updated. These results have been appended to the previously preliminary verified report. Edited result: Previously reported as Yeast on 11/11/2024 at 1317 EDT. ISIDRO No fungal elements seen Additional Susceptibilities and/or Identification [[id number]] Collected: 11/11/24 1240 Order Status: Completed Specimen: Tissue from Wound (specify site): Additional Susceptibilities and/or Identification [[id number]] Collected: 11/11/24 1238 Order Status: Completed Specimen: Tissue from Wound (specify site): Additional Susceptibilities and/or Identification [[id number]] Collected: 11/11/24 1237 Order Status: Completed Specimen: Tissue from Wound (specify site): AFB Culture, Non Respiratory Source and Acid Fast Stain [[id number]] Collected: 11/06/24 1134 Order Status: Completed Specimen: Tissue from Other (specify site) Updated: 11/11/24 0938 AFB Culture No Mycobacterial Growth <1 Week Acid Fast Stain No acid fast bacilli seen Blood Culture (Aerobic/Anaerobet Set) [[id number]] Collected: 11/06/24106 Order Status: Completed Specimen: Blood from AC, Left Updated: 11/11/24 0301 Culture No growth at day 5 Blood Culture (Aerobic/Anaerobet Set) [[id number]] Collected: 11/06/24106 Order Status: Completed Specimen: Blood [...] OSH. On 11/06, pt went to the [facility] vascular surgery for left [...] mg 1,000 mg Oral q6h [facility] Anthony Reyes MD 1,000 mg at 11/12/24 1356 aspirin chewable tablet 81 mg 81 mg Oral Daily Reid Daniels MD 81 mg at 11/12/24 0938 cefepime (Maxipime) 2 g in sodium chloride 0.9% 100 mL IVPB (vial adapter required) 2 g [id number] Reid Daniels MD 36.7 mL/hr at 11/12/24 [...] PM Anthony Reyes MD 0.4 mg at [id number] Vancomycin HCl in NaCl (Vancocin) IVPB 1,000 [...] send him home on micafungin as Rare Spring Sana parapsilosis grew and we do not [...] portions of the procedure(s) and immediately available [facility] the entire duration. See resident note for details. * Progress Notes - Mariia Monterroso - 11/11/2024 1:10 PM EDT Case Management Adult Progress Note Bev Borja 64 y.o. male CSN: [id number] Admission: 11/05/2024 9:45 PM Primary Problem: Wound infection Patient refusing inpatient placement for IV abx. [facility] infusion clinic can provide treatment. Face sheet, IV abx orders, and order for PICC care/labs/dressing changes need to be faxed to [phone]. Voicemail left with wound care clinic. Wound vac approved per , delivery pending. Crysll continue to follow. Mariia Monterroso PROPERTY CLAIMS ADJUSTER * Progress Notes - Dotty Sethi MD [...] the findings. Cardiac Device Check - [facility] EP-Device [facility]: Pre-operative CIED Report Assessment and Sara-Procedural Reommendations: Name: Bev Borja Date: 10/17/2024 : 1960 Age: 64 y.o. Patient has a Advanced Developer: [employer] LAMINATION MACHINE OPERATOR-PM Remaining battery longevity adequate. Lead integrity [...] recommendations. Supporting reports can be found in [employer] media file. Micro: Susceptibility data from last [...] Non Respiratory Source and Acid Fast Stain [[id number]] Collected: 11/06/24 1134 Order Status: Completed Specimen: Tissue from Other (specify site) Updated: 11/11/24 0938 AFB Culture No Mycobacterial Growth <1 Week Acid Fast Stain No acid fast bacilli seen Blood Culture (Aerobic/Anaerobet Set) [[id number]] Collected: 11/06/24106 Order Status: Completed Specimen: Blood from AC, Left Updated: 11/11/24 0301 Culture No growth at day 5 Blood Culture (Aerobic/Anaerobet Set) [[id number]] Collected: 11/06/24 010 Order Status: Completed Specimen: Blood from Hand, Right Updated: 11/11/24 0249 Culture No growth at day 5 Anaerobic Culture [[id number]] Collected: 11/06/24 1128 Order Status: Completed Specimen: Swab from Other (specify site) Updated: 11/10/24 1441 Culture No growth at day 4 Routine Culture and Gram Stain [[id number]] Collected: 11/06/24 1128 Order Status: Completed Specimen: Swab from Other (specify site) Updated: 11/10/24 1124 Culture No growth at day 4 Gram Stain Result No organisms seen No polymorphonuclear leukocytes seen Anaerobic Culture [[id number]] (Abnormal) Collected: 11/06/24 112 Order Status: Completed Specimen: Swab from Other (specify site) Updated: 11/10/24 0718 Culture No anaerobes isolated Mixed skin clifton Comment: The organism value for this result has been updated. These results have been appended to the previously preliminary verified report. Narrative: Mixed Skin [place] includes Streptococcus mitis/oralis group and Staphylococcus Pseudintermedius Anaerobic Culture [[id number]] (Abnormal) Collected: 11/06/24 1134 Order Status: Completed [...] [facility]SH. [facility] [...] mL IVPB (vial adapter required) 2 g [id number] Reid Daniels MD 36.7 mL/hr at 11/11/24 [...] PM Anthony Reyes MD 0.4 mg at [id number] Vancomycin HCl in NaCl (Vancocin) IVPB 1,000 [...] the original note were not included. [facility] Department of Surgery Division of Vascular Surgery Surgery Progress Note 11/11/24 Bev Borja Subjective Subjective: HPI 64yoM PMHx COPD, T2DM, HLD, HTN, RLS, CAD s/p PCI (on Xarelto) s/p pacemaker c/b left SANDIP pseudoaneurysm s/p thrombin injection 09/21/24, CLI s/p left femoral endarterectomy with EIA/RESAW TAILER stenting 10/17/24, who presented to [facility] 11/05/2024 with wound infection. [...] 09/21/24, CLI s/p left femoral endarterectomy with EIA/RESAW TAILER stenting 10/17/24, who presented to [facility] 11/05/2024 with wound infection. [...] Edited by: Reid Daniels MD at 11/11/2024 0870 Dispo: Continue Current Level of Care Reid [...] to follow, Submitted by: Kalpesh Lord PharmD, [facility] 11/10/2024 12:45 PM * Care [...] 09/21/24, CLI s/p left femoral endarterectomy with EIA/RESAW TAILER stenting 10/17/24, who presented to [facility] 11/05/2024 with wound infection. [...] 09/21/24, CLI s/p left femoral endarterectomy with EIA/RESAW TAILER stenting 10/17/24, who presented to [facility] 11/05/2024 with wound infection. [...] Barraza RN Authorized by: Nathaly Nowak MD [place] Protocol: Verbal consent obtained?: Yes Written consent [...] selection rationale: Left pacemaker Catheter Lot #: [id number] Catheter 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: [id number] Catheter placed: Single lumen Catheter size: 4 [...] 09/21/24, CLI s/p left femoral endarterectomy with EIA/RESAW TAILER stenting 10/17/24, who presented to [facility] 11/05/2024 with wound infection. [...] 09/21/24, CLI s/p left femoral endarterectomy with EIA/RESAW TAILER stenting 10/17/24, who presented to [facility] 11/05/2024 with wound infection. [...] of Care [place] M4 student [facility] Cosigned by Nathaly [...] session. Patient reports he went to [facility] 12th floor via w/c yesterday [...] Mobility: Ambulatory- community (was utilizing scooter at [email or web address] since discharge) Mobility Coleman: Independent gait with device History of Falls: [...] Mobility Bed Mobility Exam: Scooting/Bridging Level of Coleman: Modified independence Bed Mobility Exam: Supine to Sit Level of Coleman: Modified Coleman Transfers Transfer Exam: Sit to stand Level of Coleman: Modified independence Assistive Device: Rollator Transfer Exam: Stand to Sit Level of Coleman: Modified independence Assistive Device: Rollator Ambulation Device: [...] Mobility Ambulatory- community (was utilizing scooter at [email or web address] since discharge) Mobility Coleman Independent gait with device History of Falls [...] distal to knee) BED MOBILITY Level of Coleman Physical/Non-physical Assist Adaptive Equipment Utilized Scooting/ Bridging Modified independence Supine to Sit Modified Coleman TRANSFERS Level of Coleman Physical/Non-physical Assist Adaptive Equipment Utilized Sit to Stand Modified independence Rollator Stand to sit Modified independence Rollator Toilet Transfer Modified independence Grab bar FUNCTIONAL MOBILITY Ambulation Modified independent 200ft x2 with seated rest break between bouts; RPE 5-7/10. Cues forsafety with rollator brakes. Rollator Comments BALANCE Postural Appearance Posture: Within Functional Limits Level of Coleman Balance Support Static Sit Independent Feet supported Dynamic Sit Independent Feet supported Static Stand Independent Right upper extremity support, Left upper extremity support (via rollator) Dynamic Stand Independent Right upper extremity support, Left upper extremity support (via rollator) STANDARDIZED ASSESSMENTS [facility] 6-Click Daily Activities Help from Other: Don/Doff Regular Lower Body Clothings: None Help From Other: Bathing: None Help From Other: Toileting: None Help From Other: Don/Doff Upper Body Clothings: None Help From Other: Grooming: None Help From Other: Eating Meals: None [facility] 6 Click - Daily Activities Score: 24 [...] needed areas of treatment space. Level of Coleman Interventions Grooming Modified independent Standing sinkside Pt [...] Outcome: Ongoing, Progressing 11/08/2024 1346 by Brigitte Castellno RN Flowsheets (Taken 11/08/2024 1346) Progress: improving [...] Note Bev Borja 64 y.o. male CSN: [id number] Admission: 11/05/2024 9:45 PM Primary Problem: Wound [...] follow and assist as needed. Mariia Monterroso PROPERTY CLAIMS ADJUSTER * Progress Notes - Bianca Knight PharmD [...] to follow, Submitted by: Bianca Knight, ElizabethD, [facility] 11/08/2024 11:15 AM * Progress Notes - Melecio Echevarria DO - 11/08/2024 7:18 AM EDT Images from the original note were not included. [facility] Department of Surgery Division of Vascular Surgery Surgery Progress Note 11/08/24 Bev Borja Subjective Subjective: HPI 64yoM PMHx COPD, T2DM, HLD, HTN, RLS, CAD s/p PCI (on Xarelto) s/p pacemaker c/b left SANDIP pseudoaneurysm s/p thrombin injection 09/21/24, CLI s/p left femoral endarterectomy with EIA/RESAW TAILER stenting 10/17/24, who presented to [facility] 11/05/2024 with wound infection. [...] completed 10/19 Pseudoaneurysm of left femoral artery ([facility]) COPD (chronic obstructive pulmonary disease) ([facility]) Overview Signed 10/18/2021 7:30 PM by Gallo Gallardo MD Not on home inhalers A-fib ([facility]) Overview Addendum 10/19/2021 10:39 AM by Giovanna Junior APRN Hold anticoagulation Metoprolol restarted BPH (benign prostatic hyperplasia) Overview Addendum 10/19/2021 10:41 AM by Giovanna Junior APRN Flomax restarted Subarachnoid hemorrhage ([facility]) Overview Addendum 10/20/2021 8:23 AM by Giovanna Junior APRN Left frontal, right occipital NSGY consulted - Repeat CTH showing slight worsening of tSAH - no need for further imaging, will continue to follow clinically 10/20: spoke with NSGY via phone and stated to hold ASA and Xarelto for 2 weeks Closed compression fracture of L3 lumbar vertebra, initial encounter ([facility]) Overview Signed 10/18/2021 7:35 PM by [...] 09/21/24, CLI s/p left femoral endarterectomy with EIA/RESAW TAILER stenting 10/17/24, who presented to [facility] 11/05/2024 with wound infection. [...] 1960 Age: 64 y.o. Patient has a Advanced Developer: [facility] LAMINATION MACHINE OPERATOR-PM Remaining battery longevity adequate. Lead integrity [...] recommendations. Supporting reports can be found in [employer] [facility] media file. Micro: Susceptibility data from last 90 days. Collected Specimen Info Organism 11/06/24 Tissue from Other (specify site) Gram Negative Jesus 11/06/24 Swab from Other (specify site) Enterobacter cloacae complex Results Procedure Component Value Units Date/Time Fungal Culture, Routine [[id number]] Collected: 11/06/24 1128 Order Status: Completed Specimen: Swab from Other (specify site) Updated: 11/08/24 0919 Culture No Fungal Growth <1 Week Fungal Culture, Routine [[id number]] Collected: 11/06/24 1129 Order Status: Completed Specimen: Swab from Other (specify site) Updated: 11/08/24 0919 Culture No Fungal Growth <1 Week Fungal Culture, Tissue and ISIDRO [[id number]] Collected: 11/06/24 1134 Order Status: Completed Specimen: Tissue from Other (specify site) Updated: 11/08/24 0912 Culture Reading Mycological 4 Weeks No Fungal Growth <1 Week ISIDRO No fungal elements seen Blood Culture (Aerobic/Anaerobet Set) [[id number]] Collected: 11/06/24 0107 Order Status: Completed Specimen: Blood from AC, Left Updated: 11/08/24 0302 Culture No growth at day 2 Blood Culture (Aerobic/Anaerobet Set) [[id number]] Collected: 11/06/24 0107 Order Status: Completed Specimen: Blood from Hand, Right Updated: 11/08/24 0302 Culture No growth at day 2 Tissue Culture and Gram Stain [[id number]] (Abnormal) Collected: 11/06/241133 Order Status: Completed Specimen: [...] in pairs Routine Culture and Gram Stain [[id number]] (Abnormal) Collected: 11/06/241128 Order Status: Completed Specimen: Swab from Other (specify site) Updated: 11/07/24 1426 Culture Moderate Growth Enterobacter cloacae complex Comment: This isolate has been identified using the FDA Approved Eutechn[employer] CA System The organism value for this result has been updated. These results have been appended to the previously preliminary verified report. Gram Stain Result No polymorphonuclear leukocytes seen No organisms seen AFB Culture, Non Respiratory Source and Acid Fast Stain [[id number]] Collected: 11/06/241133 Order Status: Completed Specimen: Tissue from Other (specify site) Updated: 11/07/24 1404 Acid Fast Stain No acid fast bacilli seen Routine Culture and Gram Stain [[id number]] Collected: 11/06/241127 Order Status: Completed Specimen: Swab from Other (specify site) Updated: 11/07/24 0855 Culture No growth at day 1 Gram Stain Result No organisms seen No polymorphonuclear leukocytes seen Anaerobic Culture [[id number]] Collected: 11/06/241127 Order Status: Sent Specimen: Swab from Other (specify site) Updated: 11/06/24 1220 Abscess Culture and Gram Stain [[id number]] Collected: 11/06/241127 Order Status: Canceled Specimen: Swab from Other (specify site) Updated: 11/06/24 1220 Anaerobic Culture [[id number]] Collected: 11/06/241128 Order Status: Sent Specimen: Swab from Other (specify site) Updated: 11/06/24 1219 Abscess Culture and Gram Stain [[id number]] Collected: 08/13/25 1129 Order Status: Canceled Specimen: Swab from Other (specify site) Updated: 11/06/24 1219 Anaerobic Culture [[id number]] Collected: 11/06/24 1134 Order Status: Sent Specimen: [...] OSH. On 11/06, pt went to the [facility] vascular surgery for left [...] the time spent on the encounter was [id number] providing direct patient care, counseling for the patient/caregiver, and care coordination. [1] Current Facility-Administered Medications Medication Dose Route Frequency Provider Last Rate Last Admin acetaminophen (Tylenol) tablet 1,000 mg 1,000 mg Oral q6h [facility] Anthony Reyes MD 1,000 mg at 11/08/24 0520 aspirin chewable tablet 81 mg 81 mg Oral Daily Reid Daniels MD 81 mg at 11/08/24 0837 cefepime (Maxipime) 2 g in sodium chloride 0.9% 100 mL IVPB (vial adapter required) 2 g [id number] Reid Daniels MD 36.7 mL/hr at 11/08/24 [...] OPAT at a medical/nursing facility (e.g, [facility], Swing Bed, Nursing facility) OPAT [...] Access: pending Patient Specific Outpatient Circumstances: [address] [place] [id number] Contact information Bev Borja [phone] (home) Extended Emergency Contact Information Primary Emergency Contact: Patti Hill Relation: Sister Audio Experience Expert needed? No Outpatient services (including home infusion, [...] via secure chat or staff messaging in [employer]. OPAT Modified program for IV antimicrobial therapy [...] Note Bev Borja 64 y.o. male CSN: [id number] Admission: 11/05/2024 9:45 PM Primary Problem: Wound infection Enroute Controller reviewed chart and spoke with patient to complete this Initial Case Management Assessment. PCP: Asad Victor MD (Inactive) Dr. Palomo in [facility] Emergency Contact: Extended Emergency Contact Information Primary Emergency Contact: Patti Hill Relation: Sister Audio Experience Expert needed? No Insurance: Primary Visit Coverage Payer Plan Sponsor Code Group Number Group Name [facility] MED[employer] MEDICARE REPLACEMENT [id number] Primary Visit Coverage Subscriber Subscriber ID Subscriber Name Subscriber [facility] Subscriber Address [id number] BEV BORJA [id number] [place] [address] Secondary Visit Coverage Payer Plan Sponsor Code Group Number Group Name [facility] Secondary Visit Coverage Subscriber Subscriber ID Subscriber Name Subscriber [facility] Subscriber Address [id number] BEV BORJA [id number] [place] [address] Patient information: Primary Caregiver: Self Support System: Immediate family Daily Living Activities: Functional Status: Independent Living Arrangements: Alone Type of Residence: Private residence, Single Level [address] [place] [address] Current DME: Equipment Currently Used at Home: joy monterroso Income Information: Income Source: Disabled Income/Expense Information: Income meets expenses Current Resources Utilized: Food [place] Housing Circumstances-Z Codes: Housing Circumstances (select all [...] Dialysis Services: None Living Will/Advance Directive/Power of Geodetic Survey Director /Guardian: Have you reviewed your Advance Directive and is it valid for this stay?: No Advance Directive: Not applicable Information Provided on Healthcare Directives: No Pre-existing DNR/DNI Order: No Patient Requests Assistance: No Additional Comments: Patient is not medically ready for discharge. Patient uses [facility] for transportation and will need assistance with discharge transport. SW will continue to follow. Mariia Monterroso PROPERTY CLAIMS ADJUSTER * Progress Notes - Melecio Echevarria DO - 11/07/2024 9:24 AM EDT Images from the original note were not included. [facility] Department of Surgery Division of Vascular Surgery Surgery Progress Note 11/07/24 Bev Borja Subjective Subjective: HPI 64yoM PMHx COPD, T2DM, HLD, HTN, RLS, CAD s/p PCI (on Xarelto) s/p pacemaker c/b left SANDIP pseudoaneurysm s/p thrombin injection 09/21/24, CLI s/p left femoral endarterectomy with EIA/RESAW TAILER stenting 10/17/24, who presented to [facility] 11/05/2024 with wound infection. [...] MD Home meds Hold blood thinners Diabetes ([facility]) Overview Addendum 10/19/2021 10:41 AM by Giovanna [...] completed 10/19 Pseudoaneurysm of left femoral artery ([facility]) COPD (chronic obstructive pulmonary disease) ([facility]) Overview Signed 10/18/2021 7:30 PM by Gallo Gallardo MD Not on home inhalers A-fib ([facility]) Overview Addendum 10/19/2021 10:39 AM by Giovanna Junior APRN Hold anticoagulation Metoprolol restarted BPH (benign prostatic hyperplasia) Overview Addendum 10/19/2021 10:41 AM by Giovanna Junior APRN Flomax restarted Subarachnoid hemorrhage ([facility]) Overview Addendum 10/20/2021 8:23 AM by Giovanna Junior APRN Left frontal, right occipital NSGY consulted - Repeat CTH showing slight worsening of tSAH - no need for further imaging, will continue to follow clinically 10/20: spoke with NSGY via phone and stated to hold ASA and Xarelto for 2 weeks Closed compression fracture of L3 lumbar vertebra, initial encounter ([facility]) Overview Signed 10/18/2021 7:35 PM by [...] 09/21/24, CLI s/p left femoral endarterectomy with EIA/RESAW TAILER stenting 10/17/24, who presented to [facility] 11/05/2024 with wound infection. [...] the original note were not included. [facility] Department of Surgery Division of [...] nursing staff. I have notified senior resident/attending retention specialist with any issues or concerns. Melecio [...] Agree with above assessment and evaluation from resident/BOTTLE HOUSE CLEANERS SUPERVISOR. * Consults - Oscar Appiah MD - [...] 1960 Age: 64 y.o. Patient has a Advanced Developer: [employer] [facility] LAMINATION MACHINE OPERATOR-PM Remaining battery longevity adequate. Lead integrity [...] Procedure Component Value Units Date/Time Anaerobic Culture [[id number]] Collected: 11/06/241127 Order Status: Sent Specimen: Swab from Other (specify site) Updated: 11/06/24 122 Fungal Culture, Routine [[id number]] Collected: 11/06/241127 Order Status: Sent Specimen: Swab from Other (specify site) Updated: 11/06/24 1220 Routine Culture and Gram Stain [[id number]] Collected: 11/06/241127 Order Status: Sent Specimen: Swab from Other (specify site) Updated: 11/06/24 1220 Abscess Culture and Gram Stain [[id number]] Collected: 11/06/241127 Order Status: Canceled Specimen: Swab from Other (specify site) Updated: 11/06/24 1220 Anaerobic Culture [[id number]] Collected: 11/06/241128 Order Status: Sent Specimen: Swab from Other (specify site) Updated: 11/06/24 1219 Fungal Culture, Routine [[id number]] Collected: 11/06/241128 Order Status: Sent Specimen: Swab from Other (specify site) Updated: 11/06/241218 Routine Culture and Gram Stain [[id number]] Collected: 11/06/241128 Order Status: Sent Specimen: Swab from Other (specify site) Updated: 11/06/241218 Abscess Culture and Gram Stain [[id number]] Collected: 11/06/241128 Order Status: Canceled Specimen: Swab from Other (specify site) Updated: 11/06/241218 Anaerobic Culture [[id number]] Collected: 11/06/241133 Order Status: Sent Specimen: Tissue from Other (specify site) Updated: 11/06/241217 Tissue Culture and Gram Stain [[id number]] Collected: 11/06/241133 Order Status: Sent Specimen: Tissue from Other (specify site) Updated: 11/06/241217 AFB Culture, Non Respiratory Source and Acid Fast Stain [[id number]] Collected: 11/06/241133 Order Status: Sent Specimen: Tissue from Other (specify site) Updated: 11/06/241217 Fungal Culture, Tissue and ISIDRO [[id number]] Collected: 11/06/241133 Order Status: Sent Specimen: Tissue from Other (specify site) Updated: 11/06/241217 Blood Culture (Aerobic/Anaerobet Set) [[id number]] Collected: 11/06/24106 Order Status: Completed Specimen: Blood from AC, Left Updated: 11/06/24402 Culture Culture in lab Blood Culture (Aerobic/Anaerobet Set) [[id number]] Collected: 11/06/24106 Order Status: Completed Specimen: Blood [...] OSH. On 11/06, pt went to the [facility] vascular surgery for left [...] the time spent on the encounter was [id number] providing direct patient care, counseling for the patient/caregiver, and care coordination. [1] Past Medical History: Diagnosis Date Arthritis Old myocardial infarction History of myocardial infarction [2] Past Surgical History: Procedure Laterality Date ANKLE SURGERY Right CARDIAC PACEMAKER PLACEMENT CAROTID ENDARTERECTOMY N/A 2017 Endarterectomy Carotid Artery from [employer] CORONARY ANGIOPLASTY Left Coronary Angiography With Concomitant Left Heart Catheterization from [employer] CORONARY ARTERY BYPASS GRAFT N/A 2018 3V ELBOW SURGERY Right ENDARTERECTOMY Left 10/17/2024 common/SFA/Profunda thromboendarterectomy, EIA/RESAW TAILER stent HERNIA REPAIR KNEE ARTHROSCOPY Left VASCULAR SURGERY Left 09/21/2024 RESAW TAILER pseudoaneurym injection [3] Family History Problem Relation [...] mg 1,000 mg Oral q6h [facility] Anthony Reyes MD 1,000 mg at 11/06/24 [...] Note Bev Borja 64 y.o. male CSN: [id number] Admission: 11/05/2024 9:45 PM Primary Problem: Wound infection Patient in OR today. SW will continue to follow. Mariia Maya Remington PROPERTY CLAIMS ADJUSTER * Op Note - Jerry Holcomb MD - 11/06/2024 11:23 AM EDT Operative Note Date: 11/06/24 Location: [facility] Name: Bev Borja, : 1960, Diagnoses: Pre-op Diagnosis Surgical wound infection Post-op Diagnosis Surgical wound infection Procedure(s): Excisional debridement left groin (skin, subcutaneous tissue. Final measurements 10 x 7 x 6.5 cm) Excisional debridement left thigh (skin, subcutaneous tissue. Final measurements 8 x 2 x 3 cm) Attending Surgeon(s): * Nathaly Nowak - Primary Barbering Teacher(s): * Luna Beckett MD - Resident - [...] the original note were not included. [facility] Department of Surgery Division of [...] HLD, HTN, RLS who presented to the [facility] on 11/05/2024 with problems with his [...] presented to [facility] with wound infection. He [...] meds (AC) when verified Dispo: Admit to [facility] Team 2 CODE STATUS: full code This Consult, Assessment, and Plan has been discussed with Dr. Nowak, Attending Physician Anthony Reyes MD [1] Past Medical History: Diagnosis Date Arthritis Old myocardial infarction History of myocardial infarction [2] No Known Allergies [3] Past Surgical History: Procedure Laterality Date ANKLE SURGERY Right CARDIAC PACEMAKER PLACEMENT CAROTID ENDARTERECTOMY N/A 2017 Endarterectomy Carotid Artery from [employer] CORONARY ANGIOPLASTY Left Coronary Angiography With Concomitant Left Heart Catheterization from [employer] CORONARY ARTERY BYPASS GRAFT N/A 2018 3V ELBOW SURGERY Right ENDARTERECTOMY Left 10/17/2024 common/SFA/Profunda thromboendarterectomy, EIA/RESAW TAILER stent HERNIA REPAIR KNEE ARTHROSCOPY Left VASCULAR SURGERY Left 09/21/2024 RESAW TAILER pseudoaneurym injection [4] Family History Problem Relation Name Age of Onset COPD Mother Diabetes Sister Anesthesia problems Neg Hx Malig Hyperthermia Neg Hx [5] Current Facility-Administered Medications Medication Dose Route Frequency Provider Last Rate Last Admin acetaminophen (Tylenol) tablet 1,000 mg 1,000 mg Oral q6h [facility] Anthony Reyes MD 1,000 mg at 11/06/24 [...] to inpatient Once Acknowledged ANTHONY REYES 11/05/24 7368 Consult to Vascular Surgery - Surg Red Once Specialty: Vascular Surgery Provider: (Not yet assigned) Completed [facility] ED Course as of 11/06/24612Nov 05, 2024 2311 On initial evaluation, patient is hemodynamically stable. Patient has history of traumatic left lower extremity RESAW TAILER pseudoaneurysm s/p repair on 10/17 with Vascular [...] None Disposition Admit Admitting/Attending Physician: NATHALY NOWAK [[id number]] Provider Care Team: [facility] VASCULAR SURGERY 2 [168] Are they the primary team?: Yes [1] - [1] Past Medical History: Diagnosis Date Arthritis Old myocardial infarction History of myocardial infarction [2] Past Surgical History: Procedure Laterality Date ANKLE SURGERY Right CARDIAC PACEMAKER PLACEMENT CAROTID ENDARTERECTOMY N/A 2016 Endarterectomy Carotid Artery from [employer] CORONARY ANGIOPLASTY Left Coronary Angiography With Concomitant Left Heart Catheterization from [employer] CORONARY ARTERY BYPASS GRAFT N/A 2018 3V ELBOW SURGERY Right ENDARTERECTOMY Left 10/17/2024 common/SFA/Profunda thromboendarterectomy, EIA/RESAW TAILER stent HERNIA REPAIR KNEE ARTHROSCOPY Left VASCULAR SURGERY Left 09/21/2024 RESAW TAILER pseudoaneurym injection [3] Family History Problem Relation [...] EDT Office Visit [facility] [address] [place] [id number] Oscar Appiah MD [address] [facility] [address] [place] [address] Pending Results Name Type Priority [...] until 05/18/2026 Discharge Ambulatory referral to NON [facility] Outpatient Referral Routine Pseudoaneurysm of left [...] UNSOLICITED RESULTS Routine 11/13/2024 5:16 PM EDT MD NEGATIVE PRESSURE WOUND THERAPY DME </= 50 [...] UNSOLICITED RESULTS Routine 11/11/2024 5:20 PM EDT MD NEGATIVE PRESSURE WOUND THERAPY DME >50 SQ [...] Resu lt * Discharge patient (11/18/2024) 11/18/2024 Nathaly Nowak MD ADT ORDERABLES Final Result * (ABNORMAL) POCT glucose meter (11/14/2024 11:56 AM EDT) [facility] POCT Glucose 225(H) 74 - 99 [...] Comment 11/14/2024 11:57 AM EDT [facility] Director Of Tax Services ID ShethEstefani 11/14/2024 11:57 AM EDT [facility] Device ID [id number] 11/14/2024 11:57 AM EDT [facility] Specimen Type POC Capillary 11/14/2024 11:57 AM EDT [facility] Blood Capillary blood specimen / Unknown 11/14/2024 11:56 AM EDT 11/14/2024 11:57 AM EDT Nathaly Nowak MD LAB POINT OF CARE TE ST DOCKED DEVICE UNSOLICITED RESULTS Final Result Performing Organization Address City/State/[facility] Co de Phone Number [facility] [address] [place] [address] * (ABNORMAL) POCT glucose meter (11/14/2024 8:05 AM EDT) [facility] POCT Glucose [...] Comment 11/14/2024 8:06 AM EDT HEALTHCARE LAB Director Of Tax Services ID Estefani Sheth 11/14/2024 8:06 AM EDT HEALTH[facility]ARE LAB Device ID [id number] 11/14/2024 8:06 AM EDT [facility] Specimen Type POC Capillary 11/14/2024 8:06 AM EDT [facility] Blood Capillary blood specimen / Unknown 11/14/2024 8:05 AM EDT 11/14/2024 8:06 AM EDT Nathaly Nowak MD LAB POINT OF CARE TE ST DOCKED DEVICE UNSOLICITED RESULTS Final Result Performing Organization Address City/[facility]/ZIP Co de Phone Number [facility] [address] [place] [address] * (ABNORMAL) POCT glucose meter (11/14/2024 3:53 AM EDT) [facility] POCT Glucose 145(H) 74 - 99 [...] 11/14/2024 3:55 AM EDT [facility] Director Of Tax Services ID Nelda Gerber 11/15/19 3:55 AM EDT [facility]ALTH[facility]ARE LAB Device ID [id number] 11/14/2024 3:55 AM EDT [facility] Specimen Type POC Capillary 11/14/2024 3:55 AM EDT [facility] Blood Capillary blood specimen / Unknown 11/14/2024 3:53 AM EDT 11/14/2024 3:55 AM EDT Nathaly Nowak MD LAB POINT OF CARE TE ST DOCKED DEVICE UNSOLICITED RESULTS Final Result Performing Organization Address City/[facility]/ZIP Co de Phone Number [facility] [address] [place] [address] * (ABNORMAL) POCT glucose meter (11/13/2024 8:55 [...] Comment 11/13/2024 9:01 PM EDT [facility]ALTH[facility]ARE [facility] Director Of Tax Services ID Nelda Gerber 11/14/19 9:01 PM EDT [facility]ALTH[facility]ARE [facility] Device ID [id number] 11/13/2024 9:01 PM EDT [facility] Specimen Type POC Capillary 11/13/2024 9:01 PM EDT [facility] Blood Capillary blood specimen / Unknown 11/13/2024 8:55 PM EDT 11/13/2024 9:01 PM EDT Nathaly Nowak MD LAB POINT OF CARE TE ST DOCKED DEVICE UNSOLICITED RESULTS Final Result [facility] [address] [place] [address] * (ABNORMAL) POCT glucose meter (11/13/2024 5:16 PM EDT) [facility] POCT Glucose 149(H) 74 - 99 [...] Comment 11/13/2024 5:17 PM EDT HEALTHCARE LAB Director Of Tax Services ID Estefani Sheth 11/13/2024 5:17 PM EDT HEALTH[facility]ARE LAB Device ID [id number] 11/13/2024 5:17 PM EDT [facility]ALTH[facility]ARE LAB Specimen Type POC Capillary 11/13/2024 5:17 PM EDT [facility] Blood Capillary blood specimen / Unknown 11/13/2024 5:16 PM EDT 11/13/2024 5:17 PM EDT us Nathaly Nowak MD LAB POINT OF CARE TE ST DOCKED DEVICE UNSOLICITED RESULTS Final Result [facility] [address] [place] [address] * MD NEGATIVE PRESSURE WOUND THERAPY DME </= 50 [...] POCT glucose meter (11/13/2024 11:58 AM EDT) [facility] POCT Glucose [...] 11/13/2024 12:00 PM EDT [facility] Director Of Tax Services ID Estefani Sheth 11/13/2024 12:00 PM EDT [facility] Device ID [id number] 11/13/2024 12:00 PM EDT [facility]ALTH[facility]ARE LAB Specimen Type POC Capillary 11/13/2024 12:00 PM EDT [facility] Blood Capillary blood specimen / Unknown 11/13/2024 11:58 AM EDT 11/13/2024 12:00 PM EDT Nathaly Nowak MD LAB POINT OF CARE TE ST DOCKED DEVICE UNSOLICITED RESULTS Final Result Performing Organization Address City/[facility] Co de Phone Number [facility] [address] [place] [address] * (ABNORMAL) POCT glucose meter (11/13/2024 8:23 [...] for testing. Comment 11/13/2024 8:24 AM EDT [facility] Director Of Tax Services ID Estefani Sheth 11/13/2024 8:24 AM EDT HEALTHCARE LAB Device ID [id number] 11/13/2024 8:24 AM EDT [facility] Specimen Type POC Capillary 11/13/2024 8:24 AM EDT [facility] Blood Capillary blood specimen / Unknown 11/13/2024 8:23 AM EDT 11/13/2024 8:24 AM EDT Nathaly Nowak MD LAB POINT OF CARE TE ST DOCKED DEVICE UNSOLICITED RESULTS Final Result Performing Organization Address City/[facility]/ZIP Co de Phone Number [facility] [address] [place] [address] * (ABNORMAL) Phosphorus, Plasma (11/13/2024 6:37 AM EDT) Phosphorus, Plasma 1.7(L) 2.5 - 4.5 mg/dL 11/13/2024 7:16 AM EDT [facility] Blood Venous blood specimen / Unknown Venipuncture / Unknown 11/13/2024 6:37 AM EDT 11/13/2024 6:44 AM EDT us Nathaly Nowak MD LAB BLOOD ORDERABLES Final Resu lt [facility] [address] [place] [address] * Magnesium, Plasma (11/13/2024 6:37 AM EDT) Magnesium, Plasma 2.0 1.9 - 2.4 mg/dL 11/13/2024 7:16 AM EDT [facility] Blood Venous blood specimen / Unknown Venipuncture / Unknown 11/13/2024 6:37 AM EDT 11/13/2024 6:44 AM EDT us Nathaly Nowak MD LAB BLOOD ORDERABLES Final Resu lt Performing Organization Address City/[facility]/ZIP Co de Phone Number [facility] [address] [place] [phone] * (ABNORMAL) CBC W/O Differential (11/13/2024 6:37 AM EDT) WBC Count 11.72(H) 3.70 - 10.30 10*3/uL LAB HEMATOLOGY METHOD 11/13/2024 6:51 AM EDT [facility] RBC Count 2.88(L) 4.60 - 6.10 10*6/uL LAB HEMATOLOGY METHOD 11/13/2024 6:51 AM EDT [facility] HGB 8.5(L) 13.7 - 17.5 g/dL LAB HEMATOLOGY METHOD 11/13/2024 6:51 AM EDT [facility] HCT 26.4(L) 40.0 - 51.0 % LAB HEMATOLOGY METHOD 11/13/2024 6:51 AM EDT [facility] Platelet Count 398(H) 155 - 369 10*3/uL LAB HEMATOLOGY METHOD 11/13/2024 6:51 AM EDT [facility] MCV 92 79 - 98 fL LAB HEMATOLOGY METHOD 11/13/2024 6:51 AM EDT [facility] MCH 29.5 26.0 - 32.0 pg LAB HEMATOLOGY METHOD 11/13/2024 6:51 AM EDT [facility] MCHC 32.2 30.7 - 35.5 g/dL LAB HEMATOLOGY METHOD 11/13/2024 6:51 AM EDT [facility] RDW 13.6 11.5 - 14.5 % LAB HEMATOLOGY METHOD 11/13/2024 6:51 AM EDT [facility] MPV 8.9 8.8 - 12.5 fL LAB HEMATOLOGY METHOD 11/13/2024 6:51 AM EDT [facility] nRBC 0.0 <=0.0 per 100 WBCs LAB HEMATOLOGY METHOD 11/13/2024 6:51 AM EDT [facility] Blood Venous blood specimen / Unknown Venipuncture / Unknown 11/13/2024 6:37 AM EDT 11/13/2024 6:44 AM EDT us Nathaly Nowak MD LAB BLOOD ORDERABLES Final Resu lt [facility] [address] [place] [phone] * (ABNORMAL) Basic Metabolic Panel, Plasma (11/13/2024 6:37 AM EDT) Glucose, Plasma 200(H) 74 - 99 mg/dL 11/13/2024 7:16 AM EDT [facility] BUN, Plasma 10 8 - 23 mg/dL 11/13/2024 7:16 AM EDT [facility] Creatinine, Plasma 0.68(L) 0.70 - 1.20 mg/dL 11/13/2024 7:16 AM EDT [facility] BUN/Creatinine Ratio 15 11/13/2024 7:16 AM EDT [facility] Sodium, Plasma 135(L) 136 - 145 mmol/L 11/13/2024 7:16 AM EDT [facility] Potassium, Plasma 3.9 3.6 - 4.9 mmol/L 11/13/2024 7:16 AM EDT [facility] Chloride, Plasma 107 97 - 107 mmol/L 11/13/2024 7:16 AM EDT [facility] CO2, Plasma 21(L) 22 - 29 mmol/L 11/13/2024 7:16 AM EDT [facility] Anion Gap 7 6 - 16 mmol/L 11/13/2024 7:16 AM EDT [facility] Total Calcium, Plasma 8.1(L) 8.9 - 10.2 mg/dL 11/13/2024 7:16 AM EDT [facility] eGFRcr 103.2 mL/min/1.7 3m*2 11/13/2024 7:16 AM EDT [facility] Comment:Reported eGFRcr in m L/min/1.73m2 is based the CKD-EPI 2020 equation that does not use a race coefficient. Blood Venous blood specimen / Unknown Venipuncture / Unknown 11/13/2024 6:37 AM EDT 11/13/2024 6:44 AM EDT us Nathaly Nowak MD LAB BLOOD ORDERABLES Final Resu lt [facility] [address] [place] [address] * (ABNORMAL) POCT glucose meter (11/12/2024 8:27 PM EDT) [facility] POCT Glucose 175(H) 74 - 99 [...] Comment 11/12/2024 8:29 PM EDT [facility] Director Of Tax Services ID Nelda Gerber 11/13/19 8:29 PM EDT [facility] LAB Device ID [id number] 11/12/2024 8:29 PM EDT [facility] Specimen Type POC Capillary 11/12/2024 8:29 PM EDT [facility] Blood Capillary blood specimen / Unknown 11/12/2024 8:27 PM EDT 11/12/2024 8:29 PM EDT Nathaly Nowak MD LAB POINT OF CARE TE ST DOCKED DEVICE UNSOLICITED RESULTS Final Result Performing Organization Address City/[facility]/ZIP Co de Phone Number [facility]ARE [facility] [address] [place] [address] * (ABNORMAL) POCT glucose meter (11/12/2024 5:08 [...] for testing. Comment 11/12/2024 5:10 PM EDT [facility] Director Of Tax Services ID Wade Feliciano 5:10 PM EDT HEALTHCARE LAB Device ID [id number] 11/12/2024 5:10 PM EDT [facility] Specimen Type POC Capillary 11/12/2024 5:10 PM EDT [facility] Blood Capillary blood specimen / Unknown 11/12/2024 5:08 PM EDT 11/12/2024 5:10 PM EDT Nathaly Nowak MD LAB POINT OF CARE TE ST DOCKED DEVICE UNSOLICITED RESULTS Final Result Performing Organization Address City/[facility]/ZIP Co de Phone Number [facility] [address] [place] [address] * (ABNORMAL) POCT glucose meter (11/12/2024 12:36 [...] Comment 11/12/2024 12:38 PM EDT [facility] Director Of Tax Services ID Wade Feliciano 12:38 PM EDT [facility] Device ID [id number] 11/12/2024 12:38 PM EDT [facility] Specimen Type POC Capillary 11/12/2024 12:38 PM EDT [facility] Blood Capillary blood specimen / Unknown 11/12/2024 12:36 PM EDT 11/12/2024 12:38 PM EDT us Nathaly Nowak MD LAB POINT OF CARE TE ST DOCKED DEVICE UNSOLICITED RESULTS Final Result Performing Organization Address [facility] Co de Phone Number [facility] [address] [place] [address] * Clostridiodes (Clostridium) difficile PCR (11/12/2024 9:50 AM EDT) C difficile PCR toxin B gene DNA Result Not Detected Not Detected 11/12/2024 11:54 AM EDT [facility] Stool Rectum structure / Unknown Non-blood Collection / Unknown 11/12/2024 9:50 AM EDT 11/12/2024 10:04 AM EDT Narrative [facility] - 11/12/2024 11:54 AM [...] Performing Organization Address City/[facility]/ZIP Co de Phone Number [facility] [address] [place] [address] * Comprehensive GI Panel by PCR (11/12/2024 9:50 AM EDT) Campylobacter PCR Result Not Detected Not Detected 11/12/2024 2:47 PM EDT [facility] Plesiomonas shigelloides PCR Result Not Detected Not Detected 11/12/2024 2:47 PM EDT [facility] Salmonella PCR Result Not Detected Not Detected 11/12/2024 2:47 PM EDT [facility] Vibrio species PCR Result Not Detected Not Detected 11/12/2024 2:47 PM EDT [facility] Vibrio cholerae PCR Result Not Detected Not Detected 11/12/2024 2:47 PM EDT [facility] Yersinia enterocolitica PCR Result Not Detected Not Detected 11/12/2024 2:47 PM EDT [facility] Enteroaggregative E. coli (EAEC) PCR Result Not Detected Not Detected 11/12/2024 2:47 PM EDT [facility] Enteropathogenic E. coli (EPEC) PCR Result Not Detected Not Detected 11/12/2024 2:47 PM EDT [facility] Enterotoxigenic E. coli (ETEC) lt/st PCR Result Not Detected Not Detected 11/12/2024 2:47 PM EDT [facility] Shiga-like Toxin-Producing E.coli (STEC) stx1/stx2 PCR Resu Not Detected Not Detected 11/12/2024 2:47 PM EDT [facility] E coli 0157 PCR Result Not Detected Not Detected 11/12/2024 2:47 PM EDT [facility] Shigella/Enteroinvas tam E. coli (EIEC) PCR Result Not Detected Not Detected 11/12/2024 2:47 PM EDT [facility] Cryptosporidium PCR Result Not Detected Not Detected 11/12/2024 2:47 PM EDT [facility] Cyclospora cayetanensis PCR Result Not Detected Not Detected 11/12/2024 2:47 PM EDT [facility] Entamoeba histolytica PCR Result Not Detected Not Detected 11/12/2024 2:47 PM EDT [facility] Giardia duodenalis (aka Giardia lamblia) PCR Result Not Detected Not Detected 11/12/2024 2:47 PM EDT [facility] Adenovirus F 40/41 PCR Result Not Detected Not Detected 11/12/2024 2:47 PM EDT [facility] Astrovirus PCR Result Not Detected Not Detected 11/12/2024 2:47 PM EDT [facility] Norovirus GI/GII PCR Result Not Detected Not Detected 11/12/2024 2:47 PM EDT [facility] Rotavirus A PCR Result Not Detected Not Detected 11/12/2024 2:47 PM EDT [facility] Sapovirus PCR Result Not Detected Not Detected 11/12/2024 2:47 PM EDT [facility] Stool Rectum structure / Unknown Non-blood Collection / Unknown 11/12/2024 9:50 AM EDT 11/12/2024 10:04 AM EDT Narrative [facility] - 11/12/2024 2:47 PM [...] Nowak MD LAB MICROBIOLOGY - GENERAL [facility] Final Result [facility] [address] [place] [address] * C-reactive protein (11/12/2024 9:48 AM EDT) CRP, Plasma <3.0 <=8.0 mg/L 11/12/2024 10:28 AM EDT [facility] Blood Venous blood specimen / Unknown Venipuncture / Unknown 11/12/2024 9:48 AM EDT 11/12/2024 9:59 AM EDT Narrative [facility] - 11/12/2024 10:28 AM EDT This CRP test is appropriate for assessment of infection, systemic inflammation and/or tissue injury. To assess cardiovascular disease risk order high sensitivity CRP (CRPH). Nathaly Nowak MD LAB BLOOD ORDERABLES Final Resu lt Performing Organization Address City/[facility]/ZIP Co de Phone Number [facility] [address] [place] [address] * (ABNORMAL) POCT glucose meter (11/12/2024 8:20 [...] for testing. Comment 11/12/2024 8:21 AM EDT [facility] Director Of Tax Services ID BradenWade 8:21 AM EDT [facility] Device ID [id number] 11/12/2024 8:21 AM EDT [facility] Specimen Type POC Capillary 11/12/2024 8:21 AM EDT [facility] Blood Capillary blood specimen / Unknown 11/12/2024 8:20 AM EDT 11/12/2024 8:21 AM EDT Nathaly Nowak MD LAB POINT OF CARE TE ST DOCKED DEVICE UNSOLICITED RESULTS Final Result Performing Organization Address City/[facility]/ZIP Co de Phone Number [facility] [address] [place] [address] * (ABNORMAL) POCT glucose meter (11/11/2024 8:18 [...] Comment 11/11/2024 8:20 PM EDT [facility] Director Of Tax Services ID Nelda Gerber 11/12/19 8:20 PM EDT [facility] Device ID [id number] 11/11/2024 8:20 PM EDT [facility] Specimen Type POC Capillary 11/11/2024 8:20 PM EDT [facility] Blood Capillary blood specimen / Unknown 11/11/2024 8:18 PM EDT 11/11/2024 8:20 PM EDT Nathaly Nowak MD LAB POINT OF CARE TE ST DOCKED DEVICE UNSOLICITED RESULTS Final Result Performing Organization Address City/[facility]/ZIP Co de Phone Number [facility] [address] [place] [address] * (ABNORMAL) POCT glucose meter (11/11/2024 5:59 PM EDT) [facility] POCT Glucose 147(H) 74 - 99 [...] Comment 11/11/2024 6:01 PM EDT [facility] Director Of Tax Services ID Wade Feliciano 6:01 PM EDT [facility] LAB Device ID [id number] 11/11/2024 6:01 PM EDT [facility] Specimen Type POC Capillary 11/11/2024 6:01 PM EDT [facility] Blood Capillary blood specimen / Unknown 11/11/2024 5:59 PM EDT 11/11/2024 6:01 PM EDT us Nathaly Nowak MD LAB POINT OF CARE TE ST DOCKED DEVICE UNSOLICITED RESULTS Final Result [facility] [address] [place] [address] * POCT glucose meter (11/11/2024 5:20 PM [...] 11/11/2024 5:22 PM EDT [facility] Director Of Tax Services ID Wade Feliciano Tobias 5:22 PM EDT [facility] LAB Device ID [id number] 11/11/2024 5:22 PM EDT [facility] Specimen Type POC Capillary 11/11/2024 5:22 PM EDT [facility] Blood Capillary blood specimen / Unknown 11/11/2024 5:20 PM EDT 11/11/2024 5:22 PM EDT us Nathaly Nowak MD LAB POINT OF CARE TE ST DOCKED DEVICE UNSOLICITED RESULTS Final Result [facility] [address] [place] [address] * MD NEGATIVE PRESSURE WOUND THERAPY DME >50 SQ [...] - 99 mg/dL 11/11/2024 12:10 PM EDT [facility] Comment:Accuracy of a glucos e result [...] for testing. Comment 11/11/2024 12:10 PM EDT [facility] Director Of Tax Services ID Wade Feliciano 12:10 PM EDT [facility] Device ID [id number] 11/11/2024 12:10 PM EDT [facility] Specimen Type POC Capillary 11/11/2024 12:10 PM EDT [facility] Blood Capillary blood specimen / Unknown 11/11/2024 12:08 PM EDT 11/11/2024 12:10 PM EDT Nathaly Nowak MD LAB POINT OF CARE TE ST DOCKED DEVICE UNSOLICITED RESULTS Final Result Performing Organization Address City/State/[facility] Co de Phone Number [facility]ARE [facility] [address] [place] [address] * (ABNORMAL) POCT glucose meter (11/11/2024 9:08 AM EDT) POCT Glucose 162(H) 74 - 99 mg/dL 11/11/2024 9:09 AM EDT [facility] Comment:Accuracy of a glucos e result [...] 11/11/2024 9:09 AM EDT [facility] Director Of Tax Services ID Wade Feliciano 9:09 AM EDT [facility]ARE LAB Device ID [id number] 11/11/2024 9:09 AM EDT [facility] Specimen Type POC Capillary 11/11/2024 9:09 AM EDT [facility] Blood Capillary blood specimen / Unknown 11/11/2024 9:08 AM EDT 11/11/2024 9:09 AM EDT Nathaly Nowak MD LAB POINT OF CARE TE ST DOCKED DEVICE UNSOLICITED RESULTS Final Result Performing Organization Address City/[facility] Co de Phone Number [facility] [address] [place] [address] * POCT glucose meter (11/11/2024 8:27 AM [...] Comment 11/11/2024 8:28 AM EDT [facility] Director Of Tax Services ID Wade Feliciano Tobias 8:28 AM EDT [facility] LAB Device ID [id number] 11/11/2024 8:28 AM EDT [facility] Specimen Type POC Capillary 11/11/2024 8:28 AM EDT [facility] Blood Capillary blood specimen / Unknown 11/11/2024 8:27 AM EDT 11/11/2024 8:28 AM EDT Nathaly Nowak MD LAB POINT OF CARE TE ST DOCKED DEVICE UNSOLICITED RESULTS Final Result Performing Organization Address City/[facility]/ZIP Co de Phone Number [facility] [address] [place] [address] * (ABNORMAL) Basic Metabolic Panel, Plasma (11/11/2024 1:12 AM EDT) Glucose, Plasma 122(H) 74 - 99 mg/dL 11/11/2024 1:12 AM EDT [facility] BUN, Plasma 10 8 - 23 mg/dL 11/11/2024 1:12 AM EDT [facility] Creatinine, Plasma 0.82 0.70 - 1.20 mg/dL 11/11/2024 1:12 AM EDT [facility] BUN/Creatinine Ratio 12 11/11/2024 1:12 AM EDT [facility] Sodium, Plasma 137 136 - 145 mmol/L 11/11/2024 1:12 AM EDT [facility] Potassium, Plasma 3.9 3.6 - 4.9 mmol/L 11/11/2024 1:12 AM EDT [facility] Chloride, Plasma 110(H) 97 - 107 mmol/L 11/11/2024 1:12 AM EDT [facility] CO2, Plasma 20(L) 22 - 29 mmol/L 11/11/2024 1:12 AM EDT [facility] Anion Gap 7 6 - 16 mmol/L 11/11/2024 1:12 AM EDT [facility] Total Calcium, Plasma 7.6(L) 8.9 - 10.2 mg/dL 11/11/2024 1:12 AM EDT [facility] eGFRcr 97.5 mL/min/1.7 3m*2 11/11/2024 1:12 AM EDT [facility] Comment:Reported eGFRcr in m L/min/1.73m2 is based the CKD-EPI 2020 equation that does not use a race coefficient. Blood Venous blood specimen / Unknown 11/11/2024 12:42 AM EDT us Nathaly Nowak MD LAB BLOOD ORDERABLES Final Resu lt [facility] [address] [place] [address] * (ABNORMAL) CBC W/O Differential (11/11/2024 12:56 AM EDT) WBC Count 11.83(H) 3.70 - 10.30 10*3/uL LAB HEMATOLOGY METHOD 11/11/2024 12:56 AM EDT [facility] RBC Count 2.97(L) 4.60 - 6.10 10*6/uL LAB HEMATOLOGY METHOD 11/11/2024 12:56 AM EDT [facility] HGB 8.9(L) 13.7 - 17.5 g/dL LAB HEMATOLOGY METHOD 11/11/2024 12:56 AM EDT [facility] HCT 27.2(L) 40.0 - 51.0 % LAB HEMATOLOGY METHOD 11/11/2024 12:56 AM EDT [facility] Platelet Count 444(H) 155 - 369 10*3/uL LAB HEMATOLOGY METHOD 11/11/2024 12:56 AM EDT [facility] MCV 92 79 - 98 fL LAB HEMATOLOGY METHOD 11/11/2024 12:56 AM EDT [facility] MCH 30.0 26.0 - 32.0 pg LAB HEMATOLOGY METHOD 11/11/2024 12:56 AM EDT [facility] MCHC 32.7 30.7 - 35.5 g/dL LAB HEMATOLOGY METHOD 11/11/2024 12:56 AM EDT [facility] RDW 13.3 11.5 - 14.5 % LAB HEMATOLOGY METHOD 11/11/2024 12:56 AM EDT [facility] MPV 9.0 8.8 - 12.5 fL LAB HEMATOLOGY METHOD 11/11/2024 12:56 AM EDT [facility] nRBC 0.0 <=0.0 per 100 WBCs LAB HEMATOLOGY METHOD 11/11/2024 12:56 AM EDT [facility] Blood Venous blood specimen / Unknown 11/11/2024 12:42 AM EDT us Nathaly Nowak MD LAB BLOOD ORDERABLES Final Resu lt [facility] [address] [place] [address] * (ABNORMAL) POCT glucose meter (11/10/2024 8:25 [...] 11/10/2024 8:28 PM EDT [facility] Director Of Tax Services ID Nelda Gerber 11/11/19 8:28 PM EDT [facility] Device ID [id number] 11/10/2024 8:28 PM EDT [facility] LAB Specimen Type POC Capillary 11/10/2024 8:28 PM EDT [facility] Blood Capillary blood specimen / Unknown 11/10/2024 8:25 PM EDT 11/10/2024 8:28 PM EDT Nathaly Nowak MD LAB POINT OF CARE TE ST DOCKED DEVICE UNSOLICITED RESULTS Final Result [facility] [address] [place] [address] * (ABNORMAL) POCT glucose meter (11/10/2024 4:45 PM EDT) [facility] POCT Glucose 155(H) 74 - 99 [...] 11/10/2024 4:47 PM EDT [facility] Director Of Tax Services ID Esperanza Parks 11/10/2024 4:47 PM EDT [facility]ALTH[facility]ARE LAB Device ID [id number] 11/10/2024 4:47 PM EDT [facility] Specimen Type POC Capillary 11/10/2024 4:47 PM EDT [facility] Blood Capillary blood specimen / Unknown 11/10/2024 4:45 PM EDT 11/10/2024 4:47 PM EDT Nathaly Nowak MD LAB POINT OF CARE TE ST DOCKED DEVICE UNSOLICITED RESULTS Final Result Performing Organization Address [facility] Co de Phone Number [facility] [address] [place] [address] * (ABNORMAL) POCT glucose meter (11/10/2024 12:13 [...] Comment 11/10/2024 12:14 PM EDT [facility] Director Of Tax Services ID Esperanza Parks 11/10/2024 12:14 PM EDT [facility]ALTH[facility]ARE LAB Device ID [id number] 11/10/2024 12:14 PM EDT [facility] Specimen Type POC Capillary 11/10/2024 12:14 PM EDT [facility] Blood Capillary blood specimen / Unknown 11/10/2024 12:13 PM EDT 11/10/2024 12:14 PM EDT us Nathaly Nowak MD LAB POINT OF CARE TE ST DOCKED DEVICE UNSOLICITED RESULTS Final Result Performing Organization Address City/[facility] Co de Phone Number [facility] [address] [place] [address] * Vancomycin, Peak, Plasma Please draw ~2 hours after 0800 dose of vancomycin finishes infusing. Consider obtaining level via peripheral stick. If peripheral stick is not feasible, please ensure that line is flushed well prior to drawing level. Than... (11/10/2024 10:56 AM EDT) Vancomycin, Peak, Plasma 23.8 20.0 - 40.0 ug/mL 11/10/2024 11:25 AM EDT [facility] Blood Venous blood specimen / Unknown Venipuncture / Unknown 11/10/2024 10:56 AM EDT 11/10/2024 11:00 AM EDT Narrative [facility] - 11/10/2024 11:25 AM EDT Therapeutic Peak level: 20-40ug/mL Supra-therapeutic Peak level: >40 ug/mL us Abigail Seay MD LAB BLOOD ORDERABLES Final Res ult Performing Organization Address City/[facility]/ZIP Co de Phone Number [facility] [address] [place] [address] * (ABNORMAL) POCT glucose meter (11/10/2024 8:03 [...] Comment 11/10/2024 8:04 AM EDT [facility] Director Of Tax Services ID Esperanza Parks 11/10/2024 8:04 AM EDT [facility] LAB Device ID [id number] 11/10/2024 8:04 AM EDT [facility] Specimen Type POC Capillary 11/10/2024 8:04 AM EDT [facility] Blood Capillary blood specimen / Unknown 11/10/2024 8:03 AM EDT 11/10/2024 8:04 AM EDT us Nathaly Nowak MD LAB POINT OF CARE TE ST DOCKED DEVICE UNSOLICITED RESULTS Final Result Performing Organization Address City/[facility]/ZIP Co de Phone Number [facility] [address] [place] [address] * Vancomycin, Trough, Plasma Please draw ~30 minutes prior to dose due at 0800 on 11/10. Please do NOThold dose awaiting level to return. Consider obtaining level via peripheral stick. If peripheral stick is not feasible, please ensure that line is... (11/10/2024 7:27 AM EDT) Pathologist [facility] Vancomycin, Trough, Plasma 16.2 10.0 - 20.0 ug/mL 11/10/2024 8:24 AM EDT [facility] Blood Venous blood specimen / Unknown Venipuncture / Unknown 11/10/2024 7:27 AM EDT 11/10/2024 7:51 AM EDT Narrative [facility] - 11/10/2024 8:24 AM EDT Therapeutic Trough level: 10-20ug/mL Supra-therapeutic Trough level: >20 ug/mL us Abigail Seay MD LAB BLOOD ORDERABLES Final Res ult [facility] [address] [place] [address] * (ABNORMAL) CBC and Differential (11/10/2024 12:31 AM EDT) Pathologist [facility] WBC Count 10.80(H) 3.70 - 10.30 10*3/uL LAB HEMATOLOGY METHOD 11/10/2024 12:53 AM EDT [facility] RBC Count 3.06(L) 4.60 - 6.10 10*6/uL LAB HEMATOLOGY METHOD 11/10/2024 12:53 AM EDT [facility] HGB 9.1(L) 13.7 - 17.5 g/dL LAB HEMATOLOGY METHOD 11/10/2024 12:53 AM EDT [facility] HCT 28.0(L) 40.0 - 51.0 % LAB HEMATOLOGY METHOD 11/10/2024 12:53 AM EDT [facility] Platelet Count 501(H) 155 - 369 10*3/uL LAB HEMATOLOGY METHOD 11/10/2024 12:53 AM EDT [facility] MCV 92 79 - 98 fL LAB HEMATOLOGY METHOD 11/10/2024 12:53 AM EDT [facility] MCH 29.7 26.0 - 32.0 pg LAB HEMATOLOGY METHOD 11/10/2024 12:53 AM EDT [facility] MCHC 32.5 30.7 - 35.5 g/dL LAB HEMATOLOGY METHOD 11/10/2024 12:53 AM EDT [facility] RDW 13.2 11.5 - 14.5 % LAB HEMATOLOGY METHOD 11/10/2024 12:53 AM EDT [facility] MPV 8.8 8.8 - 12.5 fL LAB HEMATOLOGY METHOD 11/10/2024 12:53 AM EDT [facility] nRBC 0.0 <=0.0 per 100 WBCs LAB HEMATOLOGY METHOD 11/10/2024 12:53 AM EDT [facility] Differential Type Automated LAB HEMATOLOGY METHOD 11/10/2024 12:53 AM EDT [facility] Neutrophils % 77 % LAB HEMATOLOGY METHOD 11/10/2024 12:53 AM EDT [facility] Lymphocytes % 13 % LAB HEMATOLOGY METHOD 11/10/2024 12:53 AM EDT [facility] Monocytes % 8 % LAB HEMATOLOGY METHOD 11/10/2024 12:53 AM EDT [facility] Eosinophils % 1 % LAB HEMATOLOGY METHOD 11/10/2024 12:53 AM EDT [facility] Basophils % 0 % LAB HEMATOLOGY METHOD 11/10/2024 12:53 AM EDT [facility] Immature Granulocytes % 1 % LAB HEMATOLOGY METHOD 11/10/2024 12:53 AM EDT [facility] Neutrophils Absolute 8.32(H) 1.60 - 6.10 10*3/uL LAB HEMATOLOGY METHOD 11/10/2024 12:53 AM EDT [facility] Lymphocytes Absolute 1.40 1.20 - 3.90 10*3/uL LAB HEMATOLOGY METHOD 11/10/2024 12:53 AM EDT [facility] Monocytes Absolute 0.89 0.30 - 0.90 10*3/uL LAB HEMATOLOGY METHOD 11/10/2024 12:53 AM EDT [facility] Eosinophils Absolute 0.09 0.00 - 0.50 10*3/uL LAB HEMATOLOGY METHOD 11/10/2024 12:53 AM EDT [facility] Basophils Absolute 0.04 0.00 - 0.10 10*3/uL LAB HEMATOLOGY METHOD 11/10/2024 12:53 AM EDT [facility] Immature Granulocytes Absolute 0.06 0.00 - 0.06 10*3/uL LAB HEMATOLOGY METHOD 11/10/2024 12:53 AM EDT [facility] Blood Venous blood specimen / Unknown Venipuncture / Unknown 11/10/2024 12:31 AM EDT 11/10/2024 12:37 AM EDT Narrative [facility] - 11/10/2024 12:53 AM EDT Therapeutic decision making should be based on absolute values, rather than percentages. us Nathaly Nowak MD LAB BLOOD ORDERABLES Final Resu lt [facility] [address] [place] [address] * (ABNORMAL) Comprehensive Metabolic Panel, Plasma (11/10/2024 12:31 AM EDT) Glucose, Plasma 185(H) 74 - 99 mg/dL 11/10/2024 1:05 AM EDT [facility] BUN, Plasma 9 8 - 23 mg/dL 11/10/2024 1:05 AM EDT [facility] Creatinine, Plasma 0.72 0.70 - 1.20 mg/dL 11/10/2024 1:05 AM EDT [facility] BUN/Creatinine Ratio 13 11/10/2024 1:05 AM EDT [facility] Sodium, Plasma 135(L) 136 - 145 mmol/L 11/10/2024 1:05 AM EDT [facility] Potassium, Plasma 4.0 3.6 - 4.9 mmol/L 11/10/2024 1:05 AM EDT [facility] Chloride, Plasma 106 97 - 107 mmol/L 11/10/2024 1:05 AM EDT [facility] CO2, Plasma 19(L) 22 - 29 mmol/L 11/10/2024 1:05 AM EDT [facility] Anion Gap 10 6 - 16 mmol/L 11/10/2024 1:05 AM EDT [facility] Total Calcium, Plasma 7.8(L) 8.9 - 10.2 mg/dL 11/10/2024 1:05 AM EDT [facility] Total Protein 5.6(L) 6.3 - 7.9 g/dL 11/10/2024 1:05 AM EDT [facility] Albumin, Plasma 3.1(L) 3.5 - 5.2 g/dL 11/10/2024 1:05 AM EDT [facility] AST, Plasma 33 10 - 50 U/L 11/10/2024 1:05 AM EDT [facility] ALT, Plasma 25 10 - 50 U/L 11/10/2024 1:05 AM EDT [facility] Alkaline Phosphatase, Plasma 108 40 - 115 U/L 11/10/2024 1:05 AM EDT [facility] Total Bilirubin, Plasma <0.2(L) 0.2 - 1.1 mg/dL 11/10/2024 1:05 AM EDT [facility] eGFRcr 101.4 mL/min/1.7 3m*2 11/10/2024 1:05 AM EDT [facility] Comment:Reported eGFRcr in m L/min/1.73m2 is based the CKD-EPI 2020 equation that does not use a race coefficient. Blood Venous blood specimen / Unknown Venipuncture / Unknown 11/10/2024 12:31 AM EDT 11/10/2024 12:37 AM EDT us Nathaly Nowak MD LAB BLOOD ORDERABLES Final Resu lt [facility] [address] [place] [address] * (ABNORMAL) POCT glucose meter (11/09/2024 8:04 [...] for testing. Comment 11/09/2024 8:06 PM EDT [facility] Director Of Tax Services ID Maximiliano Hansen II 11/09/2024 8:06 PM EDT [facility] Device ID [id number] 11/09/2024 8:06 PM EDT [facility] Specimen Type POC Capillary 11/09/2024 8:06 PM EDT [facility] Blood Capillary blood specimen / Unknown 11/09/2024 8:04 PM EDT 11/09/2024 8:06 PM EDT Nathaly Nowak MD LAB POINT OF CARE TE ST DOCKED DEVICE UNSOLICITED RESULTS Final Result Performing Organization Address City/[facility] Co de Phone Number [facility] [address] [place] [address] * (ABNORMAL) POCT glucose meter (11/09/2024 4:36 PM EDT) [facility] POCT Glucose 166(H) 74 - 99 [...] Comment 11/09/2024 4:38 PM EDT [facility] Director Of Tax Services ID Kristian Sosa 11/09/2024 4:38 PM EDT [facility] LAB Device ID [id number] 11/09/2024 4:38 PM EDT [facility] Specimen Type POC Capillary 11/09/2024 4:38 PM EDT [facility] Blood Capillary blood specimen / Unknown 11/09/2024 4:36 PM EDT 11/09/2024 4:38 PM EDT us Nathaly Nowak MD LAB POINT OF CARE TE ST DOCKED DEVICE UNSOLICITED RESULTS Final Result Performing Organization Address City/[facility] Co de Phone Number [facility] [address] [place] [address] * PICC SINGLE LUMEN ([employer] L[employer]) (11/09/2024 1:11 PM EDT) Narrative Estefani Barraza RN - 11/09/2024 1:11 PM EDT Estefani Barraza RN 11/09/2024 1:12 PM Insert PICC line Date/Time: 11/09/2024 1:11 PM Performed by: Estefani Barraza RN Authorized by: Nathaly Nowak MD [place] Protocol: Verbal consent obtained?: Yes Written consent [...] selection rationale: Left pacemaker Catheter Lot #: [id number] 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: [id number] Catheter placed: Single lumen Catheter size: 4 [...] - 99 mg/dL 11/09/2024 11:51 AM EDT [facility] Comment:Accuracy of a glucos e result [...] Comment 11/09/2024 11:51 AM EDT [facility] Director Of Tax Services ID Kristian Sosa 11/09/2024 11:51 AM EDT [facility] LAB Device ID [id number] 11/09/2024 11:51 AM EDT [facility] Specimen Type POC Capillary 11/09/2024 11:51 AM EDT [facility] Blood Capillary blood specimen / Unknown 11/09/2024 11:50 AM EDT 11/09/2024 11:51 AM EDT Nathaly Nowak MD LAB POINT OF CARE TE ST DOCKED DEVICE UNSOLICITED RESULTS Final Result [facility] [address] [place] [address] * (ABNORMAL) POCT glucose meter (11/09/2024 8:14 AM EDT) [facility] Signature POCT Glucose 153(H) 74 - 99 [...] Comment 11/09/2024 8:15 AM EDT [facility] Director Of Tax Services ID Kristian Sosa 11/09/2024 8:15 AM EDT [facility] Device ID [id number] 11/09/2024 8:15 AM EDT [facility] Specimen Type POC Capillary 11/09/2024 8:15 AM EDT [facility] Blood Capillary blood specimen / Unknown 11/09/2024 8:14 AM EDT 11/09/2024 8:15 AM EDT Nathaly Nowak MD LAB POINT OF CARE TE ST DOCKED DEVICE UNSOLICITED RESULTS Final Result [facility] [address] [place] [address] * (ABNORMAL) CBC and Differential (11/09/2024 4:15 AM EDT) WBC Count 10.27 3.70 - 10.30 10*3/uL LAB HEMATOLOGY METHOD 11/09/2024 4:26 AM EDT [facility] RBC Count 3.14(L) 4.60 - 6.10 10*6/uL LAB HEMATOLOGY METHOD 11/09/2024 4:26 AM EDT [facility] HGB 9.2(L) 13.7 - 17.5 g/dL LAB HEMATOLOGY METHOD 11/09/2024 4:26 AM EDT [facility] HCT 28.3(L) 40.0 - 51.0 % LAB HEMATOLOGY METHOD 11/09/2024 4:26 AM EDT [facility] Platelet Count 468(H) 155 - 369 10*3/uL LAB HEMATOLOGY METHOD 11/09/2024 4:26 AM EDT [facility] MCV 90 79 - 98 fL LAB HEMATOLOGY METHOD 11/09/2024 4:26 AM EDT [facility] MCH 29.3 26.0 - 32.0 pg LAB HEMATOLOGY METHOD 11/09/2024 4:26 AM EDT [facility] MCHC 32.5 30.7 - 35.5 g/dL LAB HEMATOLOGY METHOD 11/09/2024 4:26 AM EDT [facility] RDW 13.1 11.5 - 14.5 % LAB HEMATOLOGY METHOD 11/09/2024 4:26 AM EDT [facility] MPV 8.7(L) 8.8 - 12.5 fL LAB HEMATOLOGY METHOD 11/09/2024 4:26 AM EDT [facility] nRBC 0.0 <=0.0 per 100 WBCs LAB HEMATOLOGY METHOD 11/09/2024 4:26 AM EDT [facility] Differential Type Automated LAB HEMATOLOGY METHOD 11/09/2024 4:26 AM EDT [facility] Neutrophils % 77 % LAB HEMATOLOGY METHOD 11/09/2024 4:26 AM EDT [facility] Lymphocytes % 13 % LAB HEMATOLOGY METHOD 11/09/2024 4:26 AM EDT [facility] Monocytes % 8 % LAB HEMATOLOGY METHOD 11/09/2024 4:26 AM EDT [facility] Eosinophils % 1 % LAB HEMATOLOGY METHOD 11/09/2024 4:26 AM EDT [facility] Basophils % 0 % LAB HEMATOLOGY METHOD 11/09/2024 4:26 AM EDT [facility] Immature Granulocytes % 1 % LAB HEMATOLOGY METHOD 11/09/2024 4:26 AM EDT [facility] Neutrophils Absolute 7.97(H) 1.60 - 6.10 10*3/uL LAB HEMATOLOGY METHOD 11/09/2024 4:26 AM EDT [facility] Lymphocytes Absolute 1.32 1.20 - 3.90 10*3/uL LAB HEMATOLOGY METHOD 11/09/2024 4:26 AM EDT [facility] Monocytes Absolute 0.83 0.30 - 0.90 10*3/uL LAB HEMATOLOGY METHOD 11/09/2024 4:26 AM EDT [facility] Eosinophils Absolute 0.07 0.00 - 0.50 10*3/uL LAB HEMATOLOGY METHOD 11/09/2024 4:26 AM EDT [facility] Basophils Absolute 0.03 0.00 - 0.10 10*3/uL LAB HEMATOLOGY METHOD 11/09/2024 4:26 AM EDT [facility] Immature Granulocytes Absolute 0.05 0.00 - 0.06 10*3/uL LAB HEMATOLOGY METHOD 11/09/2024 4:26 AM EDT [facility] Blood Venous blood specimen / Unknown Venipuncture / Unknown 11/09/2024 4:15 AM EDT 11/09/2024 4:[address] [facility] - 11/09/2024 4:26 AM EDT Therapeutic decision making should be based on absolute values, rather than percentages. us Nathaly Nowak MD LAB BLOOD ORDERABLES Final Resu lt [facility] [address] [place] [address] * (ABNORMAL) Comprehensive Metabolic Panel, Plasma (11/09/2024 4:15 AM EDT) [facility] Glucose, Plasma 171(H) 74 - 99 mg/dL 11/09/2024 4:47 AM EDT [facility] BUN, Plasma 9 8 - 23 mg/dL 11/09/2024 4:47 AM EDT [facility] Creatinine, Plasma 0.67(L) 0.70 - 1.20 mg/dL 11/09/2024 4:47 AM EDT [facility] BUN/Creatinine Ratio 13 11/09/2024 4:47 AM EDT [facility] Sodium, Plasma 134(L) 136 - 145 mmol/L 11/09/2024 4:47 AM EDT [facility] Potassium, Plasma 4.1 3.6 - 4.9 mmol/L 11/09/2024 4:47 AM EDT [facility] Chloride, Plasma 104 97 - 107 mmol/L 11/09/2024 4:47 AM EDT [facility] CO2, Plasma 21(L) 22 - 29 mmol/L 11/09/2024 4:47 AM EDT [facility] Anion Gap 9 6 - 16 mmol/L 11/09/2024 4:47 AM EDT [facility] Total Calcium, Plasma 8.4(L) 8.9 - 10.2 mg/dL 11/09/2024 4:47 AM EDT [facility] Total Protein 5.8(L) 6.3 - 7.9 g/dL 11/09/2024 4:47 AM EDT [facility] Albumin, Plasma 3.2(L) 3.5 - 5.2 g/dL 11/09/2024 4:47 AM EDT [facility] AST, Plasma 18 10 - 50 U/L 11/09/2024 4:47 AM EDT [facility] ALT, Plasma 17 10 - 50 U/L 11/09/2024 4:47 AM EDT [facility] Alkaline Phosphatase, Plasma 110 40 - 115 U/L 11/09/2024 4:47 AM EDT [facility] Total Bilirubin, Plasma <0.2(L) 0.2 - 1.1 mg/dL 11/09/2024 4:47 AM EDT [facility] eGFRcr 103.6 mL/min/1.7 3m*2 11/09/2024 4:47 AM EDT [facility] Comment:Reported eGFRcr in m L/min/1.73m2 is based the CKD-EPI 2020 equation that does not use a race coefficient. Blood Venous blood specimen / Unknown Venipuncture / Unknown 11/09/2024 4:15 AM EDT 11/09/2024 4:18 AM EDT Nathaly Nowak MD LAB BLOOD ORDERABLES Final Resu lt Performing Organization Address City/[facility] Co de Phone Number [facility] [address] [place] [address] * (ABNORMAL) POCT glucose meter (11/09/2024 3:30 AM EDT) POCT Glucose 160(H) 74 - 99 mg/dL 11/09/2024 3:31 AM EDT [facility] Comment:Accuracy of a glucos e result [...] Comment 11/09/2024 3:31 AM EDT [facility] Director Of Tax Services ID Maximiliano Hansen II 11/09/2024 3:31 AM EDT [facility] Device ID [id number] 11/09/2024 3:31 AM EDT [facility] Specimen Type POC Capillary 11/09/2024 3:31 AM EDT [facility] Blood Capillary blood specimen / Unknown 11/09/2024 3:30 AM EDT 11/09/2024 3:31 AM EDT us Nathaly Nowak MD LAB POINT OF CARE TE ST DOCKED DEVICE UNSOLICITED RESULTS Final Result Performing Organization Address City/[facility]/ZIP Co de Phone Number [facility] [address] [place] [address] * (ABNORMAL) POCT glucose meter (11/08/2024 7:21 [...] Comment 11/08/2024 7:22 PM EDT [facility] Director Of Tax Services ID Maximiliano Hansen II 11/08/2024 7:22 PM EDT [facility] Device ID [id number] 11/08/2024 7:22 PM EDT [facility] Specimen Type POC Capillary 11/08/2024 7:22 PM EDT [facility] Blood Capillary blood specimen / Unknown 11/08/2024 7:21 PM EDT 11/08/2024 7:22 PM EDT Nathaly Nowak MD LAB POINT OF CARE TE ST DOCKED DEVICE UNSOLICITED RESULTS Final Result Performing Organization Address City/State/[facility] Co de Phone Number [facility] [address] [place] [address] * (ABNORMAL) POCT glucose meter (11/08/2024 5:12 PM EDT) [facility] POCT Glucose 178(H) 74 - 99 [...] 11/08/2024 5:14 PM EDT [facility] Director Of Tax Services ID Estefani Sheth 11/08/2024 5:14 PM EDT [facility] Device ID [id number] 11/08/2024 5:14 PM EDT [facility] Specimen Type POC Capillary 11/08/2024 5:14 PM EDT [facility] Blood Capillary blood specimen / Unknown 11/08/2024 5:12 PM EDT 11/08/2024 5:14 PM EDT Nathaly Nowak MD LAB POINT OF CARE TE ST DOCKED DEVICE UNSOLICITED RESULTS Final Result Performing Organization Address [facility] de Phone Number [facility] [address] [place] [address] * (ABNORMAL) POCT glucose meter (11/08/2024 12:03 [...] Comment 11/08/2024 12:05 PM EDT [facility] Director Of Tax Services ID Estefani Sheth 11/08/2024 12:05 PM EDT [facility] Device ID [id number] 11/08/2024 12:05 PM EDT [facility] Specimen Type POC Capillary 11/08/2024 12:05 PM EDT [facility] Blood Capillary blood specimen / Unknown 11/08/2024 12:03 PM EDT 11/08/2024 12:05 PM EDT Nathaly Nowak MD LAB POINT OF CARE TE ST DOCKED DEVICE UNSOLICITED RESULTS Final Result Performing Organization Address City/[facility] de Phone Number [facility] [address] [place] [address] * Vancomycin, Peak, Plasma Please draw ~2 hours after 11/08 0600 dose of vancomycin finishes infusing.Consider obtaining level via peripheral stick. If peripheral stick is not feasible, please ensure that line is flushed well prior to drawing level.... (11/08/2024 9:24 AM EDT) Vancomycin, Peak, Plasma 29.1 20.0 - 40.0 ug/mL 11/08/2024 10:31 AM EDT [facility] Blood Venous blood specimen / Unknown Venipuncture / Unknown 11/08/2024 9:24 AM EDT 11/08/2024 9:47 AM EDT Narrative [facility] - 11/08/2024 10:31 AM EDT Therapeutic Peak level: 20-40ug/mL Supra-therapeutic Peak level: >40 ug/mL us Nathaly Nowak MD LAB BLOOD ORDERABLES Final Resu lt Performing Organization Address City/[facility]/ZIP Co de Phone Number [facility] [address] [place] [address] * (ABNORMAL) POCT glucose meter (11/08/2024 8:00 [...] Comment 11/08/2024 8:01 AM EDT [facility] Director Of Tax Services ID Estefani Sheth 11/08/2024 8:01 AM EDT [facility] LAB Device ID [id number] 11/08/2024 8:01 AM EDT [facility] Specimen Type POC Capillary 11/08/2024 8:01 AM EDT [facility] Blood Capillary blood specimen / Unknown 11/08/2024 8:00 AM EDT 11/08/2024 8:01 AM EDT us Nathaly Nowak MD LAB POINT OF CARE TE ST DOCKED DEVICE UNSOLICITED RESULTS Final Result Performing Organization Address City/[facility]/ZIP Co de Phone Number [facility] [address] [place] [address] * (ABNORMAL) CBC and Differential (11/08/2024 4:39 AM EDT) [facility] WBC Count 9.18 3.70 - 10.30 10*3/uL LAB HEMATOLOGY METHOD 11/08/2024 4:58 AM EDT [facility] RBC Count 3.11(L) 4.60 - 6.10 10*6/uL LAB HEMATOLOGY METHOD 11/08/2024 4:58 AM EDT [facility] HGB 9.2(L) 13.7 - 17.5 g/dL LAB HEMATOLOGY METHOD 11/08/2024 4:58 AM EDT [facility] HCT 28.9(L) 40.0 - 51.0 % LAB HEMATOLOGY METHOD 11/08/2024 4:58 AM EDT [facility] Platelet Count 485(H) 155 - 369 10*3/uL LAB HEMATOLOGY METHOD 11/08/2024 4:58 AM EDT [facility] MCV 93 79 - 98 fL LAB HEMATOLOGY METHOD 11/08/2024 4:58 AM EDT [facility] MCH 29.6 26.0 - 32.0 pg LAB HEMATOLOGY METHOD 11/08/2024 4:58 AM EDT [facility] MCHC 31.8 30.7 - 35.5 g/dL LAB HEMATOLOGY METHOD 11/08/2024 4:58 AM EDT [facility] RDW 13.0 11.5 - 14.5 % LAB HEMATOLOGY METHOD 11/08/2024 4:58 AM EDT [facility] MPV 8.8 8.8 - 12.5 fL LAB HEMATOLOGY METHOD 11/08/2024 4:58 AM EDT [facility] nRBC 0.0 <=0.0 per 100 WBCs LAB HEMATOLOGY METHOD 11/08/2024 4:58 AM EDT [facility] Differential Type Automated LAB HEMATOLOGY METHOD 11/08/2024 4:58 AM EDT [facility] Neutrophils % 69 % LAB HEMATOLOGY METHOD 11/08/2024 4:58 AM EDT [facility] Lymphocytes % 17 % LAB HEMATOLOGY METHOD 11/08/2024 4:58 AM EDT [facility] Monocytes % 10 % LAB HEMATOLOGY METHOD 11/08/2024 4:58 AM EDT [facility] Eosinophils % 2 % LAB HEMATOLOGY METHOD 11/08/2024 4:58 AM EDT [facility] Basophils % 1 % LAB HEMATOLOGY METHOD 11/08/2024 4:58 AM EDT [facility] Immature Granulocytes % 1 % LAB HEMATOLOGY METHOD 11/08/2024 4:58 AM EDT [facility] Neutrophils Absolute 6.40(H) 1.60 - 6.10 10*3/uL LAB HEMATOLOGY METHOD 11/08/2024 4:58 AM EDT [facility] Lymphocytes Absolute 1.59 1.20 - 3.90 10*3/uL LAB HEMATOLOGY METHOD 11/08/2024 4:58 AM EDT [facility] Monocytes Absolute 0.87 0.30 - 0.90 10*3/uL LAB HEMATOLOGY METHOD 11/08/2024 4:58 AM EDT [facility] Eosinophils Absolute 0.22 0.00 - 0.50 10*3/uL LAB HEMATOLOGY METHOD 11/08/2024 4:58 AM EDT [facility] Basophils Absolute 0.05 0.00 - 0.10 10*3/uL LAB HEMATOLOGY METHOD 11/08/2024 4:58 AM EDT [facility] Immature Granulocytes Absolute 0.05 0.00 - 0.06 10*3/uL LAB HEMATOLOGY METHOD 11/08/2024 4:58 AM EDT [facility] Blood Venous blood specimen / Unknown Venipuncture / Unknown 11/08/2024 4:39 AM EDT 11/08/2024 4:49 AM EDT Narrative [facility] - 11/08/2024 4:58 AM EDT Therapeutic decision making should be based on absolute values, rather than percentages. us Nathaly Nowak MD LAB BLOOD ORDERABLES Final Resu lt [facility] [address] [place] [address] * (ABNORMAL) Comprehensive Metabolic Panel, Plasma (11/08/2024 4:39 AM EDT) Glucose, Plasma 255(H) 74 - 99 mg/dL 11/08/2024 5:20 AM EDT [facility] BUN, Plasma 10 8 - 23 mg/dL 11/08/2024 5:20 AM EDT [facility] Creatinine, Plasma 0.75 0.70 - 1.20 mg/dL 11/08/2024 5:20 AM EDT [facility] BUN/Creatinine Ratio 13 11/08/2024 5:20 AM EDT [facility] Sodium, Plasma 133(L) 136 - 145 mmol/L 11/08/2024 5:20 AM EDT [facility] Potassium, Plasma 5.2(H) 3.6 - 4.9 mmol/L 11/08/2024 5:20 AM EDT [facility] Chloride, Plasma 105 97 - 107 mmol/L 11/08/2024 5:20 AM EDT [facility] CO2, Plasma 20(L) 22 - 29 mmol/L 11/08/2024 5:20 AM EDT [facility] Anion Gap 8 6 - 16 mmol/L 11/08/2024 5:20 AM EDT [facility] Total Calcium, Plasma 7.7(L) 8.9 - 10.2 mg/dL 11/08/2024 5:20 AM EDT [facility] Total Protein 5.6(L) 6.3 - 7.9 g/dL 11/08/2024 5:20 AM EDT [facility] Albumin, Plasma 2.8(L) 3.5 - 5.2 g/dL 11/08/2024 5:20 AM EDT [facility] AST, Plasma 20 10 - 50 U/L 11/08/2024 5:20 AM EDT [facility] Comment:Hemolyzed, result ma y be falsely increased. ALT, Plasma 14 10 - 50 U/L 11/08/2024 5:20 AM EDT [facility] Alkaline Phosphatase, Plasma 119(H) 40 - 115 U/L 11/08/2024 5:20 AM EDT [facility] Total Bilirubin, Plasma <0.2(L) 0.2 - 1.1 mg/dL 11/08/2024 5:20 AM EDT [facility] eGFRcr 100.1 mL/min/1.7 3m*2 11/08/2024 5:20 AM EDT [facility] Comment:Reported eGFRcr in m L/min/1.73m2 is based the CKD-EPI 2020 equation that does not use a race coefficient. Blood Venous blood specimen / Unknown Venipuncture / Unknown 11/08/2024 4:39 AM EDT 11/08/2024 4:43 AM EDT Nathaly Nowak MD LAB BLOOD ORDERABLES Final Resu lt Performing Organization Address [facility] de Phone Number [facility] [address] [place] [address] * Vancomycin, Trough, Plasma Please draw ~30 minutes prior to dose due at 0600 on 11/08. Please do NOThold dose awaiting level to return. Consider obtaining level via peripheral stick. If peripheral stick is not feasible, please ensure that line is... (11/08/2024 4:39 AM EDT) Vancomycin, Trough, Plasma 18.7 10.0 - 20.0 ug/mL 11/08/2024 5:22 AM EDT [facility] Blood Venous blood specimen / Unknown Venipuncture / Unknown 11/08/2024 4:39 AM EDT 11/08/2024 4:43 AM EDT Narrative [facility] - 11/08/2024 5:22 AM EDT Therapeutic Trough level: 10-20ug/mL Supra-therapeutic Trough level: >20 ug/mL Nathaly Nowak MD LAB BLOOD ORDERABLES Final Resu Performing Organization Address [facility] Phone Number [facility] [address] [place] [address] * (ABNORMAL) POCT glucose meter (11/07/2024 7:26 PM EDT) POCT Glucose 172(H) 74 - 99 mg/dL 11/07/2024 7:28 PM EDT [facility] Comment:Accuracy of a glucos [...] Comment 11/07/2024 7:28 PM EDT [facility] LAB Director Of Tax Services ID Maximiliano Hansen II 11/07/2024 7:28 PM EDT [facility] LAB Device ID [id number] 11/07/2024 7:28 PM EDT [facility] Specimen Type POC Capillary 11/07/2024 7:28 PM EDT [facility] Blood Capillary blood specimen / Unknown 11/07/2024 7:26 PM EDT 11/07/2024 7:28 PM EDT Nathaly Nowak MD LAB POINT OF CARE TE ST DOCKED DEVICE UNSOLICITED RESULTS Final Result Performing Organization Address City/[facility] Co de Phone Number HEALTHCARE [facility] [address] [place] [address] * (ABNORMAL) POCT glucose meter (11/07/2024 5:51 [...] Comment 11/07/2024 5:52 PM EDT [facility] Director Of Tax Services ID Brigitte Castellon 11/07/2024 5:52 PM EDT [facility] Device ID [id number] 11/07/2024 5:52 PM EDT [facility] Specimen Type POC Capillary 11/07/2024 5:52 PM EDT [facility] Blood Capillary blood specimen / Unknown 11/07/2024 5:51 PM EDT 11/07/2024 5:52 PM EDT Nathaly Nowak MD LAB POINT OF CARE TE ST DOCKED DEVICE UNSOLICITED RESULTS Final Result Performing Organization Address City/[facility]/ZIP Co de Phone Number [facility] [address] [place] [address] * (ABNORMAL) POCT glucose meter (11/07/2024 4:47 [...] 11/07/2024 4:48 PM EDT [facility] Director Of Tax Services ID Estefani Sheth 11/07/2024 4:48 PM EDT [employer] [facility] Device ID [id number] 11/07/2024 4:48 PM EDT [facility]ALTH[facility] Specimen Type POC Capillary 11/07/2024 4:48 PM EDT [facility] Blood Capillary blood specimen / Unknown 11/07/2024 4:47 PM EDT 11/07/2024 4:48 PM EDT Nathaly Nowak MD LAB POINT OF CARE TE ST DOCKED DEVICE UNSOLICITED RESULTS Final Result [facility] [address] [place] [id number] * (ABNORMAL) POCT glucose meter (11/07/2024 12:22 [...] 11/07/2024 12:24 PM EDT [facility] Director Of Tax Services ID Estefani Sheth 11/07/2024 12:24 PM EDT [facility] Device ID [id number] 11/07/2024 12:24 PM EDT [facility] Specimen Type POC Capillary 11/07/2024 12:24 PM EDT [facility] Blood Capillary blood specimen / Unknown 11/07/2024 12:22 PM EDT 11/07/2024 12:24 PM EDT us Nathaly Nowak MD LAB POINT OF CARE TE ST DOCKED DEVICE UNSOLICITED RESULTS Final Result [facility] [address] [place] [phone] * (ABNORMAL) CBC and Differential (11/07/2024 11:37 AM EDT) WBC Count 9.96 3.70 - 10.30 10*3/uL LAB HEMATOLOGY METHOD 11/07/2024 12:33 PM EDT [facility] RBC Count 2.81(L) 4.60 - 6.10 10*6/uL LAB HEMATOLOGY METHOD 11/07/2024 12:33 PM EDT [facility] HGB 8.5(L) 13.7 - 17.5 g/dL LAB HEMATOLOGY METHOD 11/07/2024 12:33 PM EDT [facility] HCT 26.0(L) 40.0 - 51.0 % LAB HEMATOLOGY METHOD 11/07/2024 12:33 PM EDT [facility] Platelet Count 524(H) 155 - 369 10*3/uL LAB HEMATOLOGY METHOD 11/07/2024 12:33 PM EDT [facility] MCV 93 79 - 98 fL LAB HEMATOLOGY METHOD 11/07/2024 12:33 PM EDT [facility] MCH 30.2 26.0 - 32.0 pg LAB HEMATOLOGY METHOD 11/07/2024 12:33 PM EDT [facility] MCHC 32.7 30.7 - 35.5 g/dL LAB HEMATOLOGY METHOD 11/07/2024 12:33 PM EDT [facility] RDW 13.1 11.5 - 14.5 % LAB HEMATOLOGY METHOD 11/07/2024 12:33 PM EDT [facility] MPV 9.0 8.8 - 12.5 fL LAB HEMATOLOGY METHOD 11/07/2024 12:33 PM EDT [facility] nRBC 0.0 <=0.0 per 100 WBCs LAB HEMATOLOGY METHOD 11/07/2024 12:33 PM EDT [facility] Differential Type Automated LAB HEMATOLOGY METHOD 11/07/2024 12:33 PM EDT [facility] Neutrophils % 72 % LAB HEMATOLOGY METHOD 11/07/2024 12:33 PM EDT [facility] Lymphocytes % 17 % LAB HEMATOLOGY METHOD 11/07/2024 12:33 PM EDT [facility] Monocytes % 9 % LAB HEMATOLOGY METHOD 11/07/2024 12:33 PM EDT [facility] Eosinophils % 1 % LAB HEMATOLOGY METHOD 11/07/2024 12:33 PM EDT [facility] Basophils % 1 % LAB HEMATOLOGY METHOD 11/07/2024 12:33 PM EDT [facility] Immature Granulocytes % 0 % LAB HEMATOLOGY METHOD 11/07/2024 12:33 PM EDT [facility] Neutrophils Absolute 7.19(H) 1.60 - 6.10 10*3/uL LAB HEMATOLOGY METHOD 11/07/2024 12:33 PM EDT [facility] Lymphocytes Absolute 1.66 1.20 - 3.90 10*3/uL LAB HEMATOLOGY METHOD 11/07/2024 12:33 PM EDT [facility] Monocytes Absolute 0.88 0.30 - 0.90 10*3/uL LAB HEMATOLOGY METHOD 11/07/2024 12:33 PM EDT [facility] Eosinophils Absolute 0.14 0.00 - 0.50 10*3/uL LAB HEMATOLOGY METHOD 11/07/2024 12:33 PM EDT [facility] Basophils Absolute 0.05 0.00 - 0.10 10*3/uL LAB HEMATOLOGY METHOD 11/07/2024 12:33 PM EDT [facility] Immature Granulocytes Absolute 0.04 0.00 - 0.06 10*3/uL LAB HEMATOLOGY METHOD 11/07/2024 12:33 PM EDT [facility] Blood Venous blood specimen / Unknown Venipuncture / Unknown 11/07/2024 11:37 AM EDT 11/07/2024 12:[address] [facility] - 11/07/2024 12:33 PM EDT Therapeutic decision making should be based on absolute values, rather than percentages. us Nathaly Nowak MD LAB BLOOD ORDERABLES Final Resu lt [facility] [address] [place] [address] * (ABNORMAL) Comprehensive Metabolic Panel, Plasma (11/07/2024 11:37 AM EDT) Glucose, Plasma 173(H) 74 - 99 mg/dL 11/07/2024 1:31 PM EDT [facility] BUN, Plasma 13 8 - 23 mg/dL 11/07/2024 1:31 PM EDT [facility] Creatinine, Plasma 0.92 0.70 - 1.20 mg/dL 11/07/2024 1:31 PM EDT [facility] BUN/Creatinine Ratio 14 11/07/2024 1:31 PM EDT [facility] Sodium, Plasma 136 136 - 145 mmol/L 11/07/2024 1:31 PM EDT [facility] Potassium, Plasma 4.0 3.6 - 4.9 mmol/L 11/07/2024 1:31 PM EDT [facility] Chloride, Plasma 104 97 - 107 mmol/L 11/07/2024 1:31 PM EDT [facility] CO2, Plasma 23 22 - 29 mmol/L 11/07/2024 1:31 PM EDT [facility] Anion Gap 9 6 - 16 mmol/L 11/07/2024 1:31 PM EDT [facility] Total Calcium, Plasma 7.8(L) 8.9 - 10.2 mg/dL 11/07/2024 1:31 PM EDT [facility] Total Protein 5.7(L) 6.3 - 7.9 g/dL 11/07/2024 1:31 PM EDT [facility] Albumin, Plasma 3.0(L) 3.5 - 5.2 g/dL 11/07/2024 1:31 PM EDT [facility] AST, Plasma 15 10 - 50 U/L 11/07/2024 1:31 PM EDT [facility] ALT, Plasma 16 10 - 50 U/L 11/07/2024 1:31 PM EDT [facility] Alkaline Phosphatase, Plasma 119(H) 40 - 115 U/L 11/07/2024 1:31 PM EDT [facility] Total Bilirubin, Plasma <0.2(L) 0.2 - 1.1 mg/dL 11/07/2024 1:31 PM EDT [facility] eGFRcr 92.3 mL/min/1.7 3m*2 11/07/2024 1:31 PM EDT [facility] Comment:Reported eGFRcr in m L/min/1.73m2 is based the CKD-EPI 2020 equation that does not use a race coefficient. Blood Venous blood specimen / Unknown Venipuncture / Unknown 11/07/2024 11:37 AM EDT 11/07/2024 12:23 PM EDT Nathaly Nowak MD LAB BLOOD ORDERABLES Final Resu lt Performing Organization Address City/[facility]/ZIP Co de Phone Number [facility] [address] [place] [address] * Type and Screen (11/07/2024 11:37 AM [...] Performing Organization Address City/[facility]/ZIP Co de Phone Number BLOOD BANK [address] [place] [address], * (ABNORMAL) POCT glucose meter (11/07/2024 10:34 [...] Comment 11/07/2024 10:36 AM EDT [facility] Director Of Tax Services ID Joy Iraheta 11/07/2024 10:36 AM EDT [facility] LAB Device ID [id number] 11/07/2024 10:36 AM EDT [facility] Specimen Type POC Capillary 11/07/2024 10:36 AM EDT [facility] Blood Capillary blood specimen / Unknown 11/07/2024 10:34 AM EDT 11/07/2024 10:36 AM EDT Nathaly Nowak MD LAB POINT OF CARE TE ST DOCKED DEVICE UNSOLICITED RESULTS Final Result Performing Organization Address City/State/[facility] Co de Phone Number HEALTHCARE LAB [address] [place] [address] * (ABNORMAL) POCT glucose meter (11/07/2024 9:34 AM EDT) [facility] POCT Glucose 208(H) 74 - 99 [...] Comment 11/07/2024 9:36 AM EDT [facility] Director Of Tax Services ID Brigitte Castellon 11/07/2024 9:36 AM EDT [facility] LAB Device ID [id number] 11/07/2024 9:36 AM EDT [facility] Specimen Type POC Capillary 11/07/2024 9:36 AM EDT [facility] Blood Capillary blood specimen / Unknown 11/07/2024 9:34 AM EDT 11/07/2024 9:36 AM EDT Nathaly Nowak MD LAB POINT OF CARE TE ST DOCKED DEVICE UNSOLICITED RESULTS Final Result Performing Organization Address City/[facility]/ZIP Co de Phone Number HEALTHCARE LAB [address] [place] [address] * (ABNORMAL) POCT glucose meter (11/07/2024 8:20 [...] for testing. Comment 11/07/2024 8:22 AM EDT [facility] Director Of Tax Services ID Estefani Sheth 11/07/2024 8:22 AM EDT HEALTHCARE LAB Device ID [id number] 11/07/2024 8:22 AM EDT [facility] Specimen Type POC Capillary 11/07/2024 8:22 AM EDT [facility] Blood Capillary blood specimen / Unknown 11/07/2024 8:20 AM EDT 11/07/2024 8:22 AM EDT Nathaly Nowak MD LAB POINT OF CARE TE ST DOCKED DEVICE UNSOLICITED RESULTS Final Result Performing Organization Address City/[facility]/ZIP Co de Phone Number [facility] [address] [place] [address] * (ABNORMAL) POCT glucose meter (11/07/2024 7:21 [...] Comment 11/07/2024 7:22 AM EDT [facility]ALTH[facility]ARE LAB Director Of Tax Services ID Brigitte Castellon 11/07/2024 7:22 AM EDT HEALTH[facility]ARE LAB Device ID [id number] 11/07/2024 7:22 AM EDT [facility] LAB Specimen Type POC Capillary 11/07/2024 7:22 AM EDT [facility] Blood Capillary blood specimen / Unknown 11/07/2024 7:21 AM EDT 11/07/2024 7:22 AM EDT Nathaly Nowak MD LAB POINT OF CARE TE ST DOCKED DEVICE UNSOLICITED RESULTS Final Result Performing Organization Address City/[facility] Co de Phone Number HEALTHCARE LAB [address] [place] [address] * (ABNORMAL) POCT glucose meter (11/07/2024 6:25 [...] Comment 11/07/2024 6:27 AM EDT [facility] Director Of Tax Services ID Nelda Gerber 11/08/19 6:27 AM EDT HEALTH[facility]ARE LAB Device ID [id number] 11/07/2024 6:27 AM EDT [facility] LAB Specimen Type POC Capillary 11/07/2024 6:27 AM EDT [facility] Blood Capillary blood specimen / Unknown 11/07/2024 6:25 AM EDT 11/07/2024 6:27 AM EDT Nathaly Nowak MD LAB POINT OF CARE TE ST DOCKED DEVICE UNSOLICITED RESULTS Final Result Performing Organization Address City/[facility] Co de Phone Number [facility] [address] [place] [address] * (ABNORMAL) POCT glucose meter (11/07/2024 5:03 [...] for testing. Comment 11/07/2024 5:08 AM EDT [facility] Director Of Tax Services ID Nelda Gerber 11/08/19 5:08 AM EDT [facility] LAB Device ID [id number] 11/07/2024 5:08 AM EDT [facility] Specimen Type POC Capillary 11/07/2024 5:08 AM EDT [facility] Blood Capillary blood specimen / Unknown 11/07/2024 5:03 AM EDT 11/07/2024 5:08 AM EDT Nathaly Nowak MD LAB POINT OF CARE TE ST DOCKED DEVICE UNSOLICITED RESULTS Final Result [facility] [address] [place] [address] * (ABNORMAL) POCT glucose meter (11/07/2024 4:16 AM EDT) [facility] POCT Glucose 142(H) 74 - 99 [...] 11/07/2024 4:18 AM EDT [facility] Director Of Tax Services ID Nelda Gerber 11/08/19 4:18 AM EDT [employer] [facility] LAB Device ID [id number] 11/07/2024 4:18 AM EDT [facility] Specimen Type POC Capillary 11/07/2024 4:18 AM EDT [facility] Blood Capillary blood specimen / Unknown 11/07/2024 4:16 AM EDT 11/07/2024 4:18 AM EDT Nathaly Nowak MD LAB POINT OF CARE TE ST DOCKED DEVICE UNSOLICITED RESULTS Final Result Performing Organization Address City/[facility] Co de Phone Number HEALTHCARE LAB [address] [place] [address] * (ABNORMAL) POCT glucose meter (11/07/2024 3:21 [...] for testing. Comment 11/07/2024 3:23 AM EDT [facility] Director Of Tax Services ID Nelda Gerber 11/08/19 3:23 AM EDT HEALTHCARE LAB Device ID [id number] 11/07/2024 3:23 AM EDT [facility] Specimen Type POC Capillary 11/07/2024 3:23 AM EDT [facility] Blood Capillary blood specimen / Unknown 11/07/2024 3:21 AM EDT 11/07/2024 3:23 AM EDT us Nathaly Nowak MD LAB POINT OF CARE TE ST DOCKED DEVICE UNSOLICITED RESULTS Final Result [facility] [address] [place] [address] * (ABNORMAL) POCT glucose meter (11/07/2024 2:10 [...] Comment 11/07/2024 2:12 AM EDT [facility] Director Of Tax Services ID Nelda Gerber 11/08/19 25 2:12 AM EDT [facility] Device ID [id number] 11/07/2024 2:12 AM EDT [facility] Specimen Type POC Capillary 11/07/2024 2:12 AM EDT [facility] Blood Capillary blood specimen / Unknown 11/07/2024 2:10 AM EDT 11/07/2024 2:12 AM EDT us Nathaly Nowak MD LAB POINT OF CARE TE ST DOCKED DEVICE UNSOLICITED RESULTS Final Result Performing Organization Address City/State/[facility] Co de Phone Number HEALTHCARE LAB [address] [place] [address] * (ABNORMAL) POCT glucose meter (11/07/2024 1:08 AM EDT) [facility] Signature POCT Glucose 135(H) 74 - 99 mg/dL [...] Comment 11/07/2024 1:10 AM EDT [facility] LAB Director Of Tax Services ID Nelda Gerber 11/08/19 1:10 AM EDT HEALTH[facility]ARE LAB Device ID [id number] 11/07/2024 1:10 AM EDT [facility] LAB Specimen Type POC Capillary 11/07/2024 1:10 AM EDT [facility] Blood Capillary blood specimen / Unknown 11/07/2024 1:08 AM EDT 11/07/2024 1:10 AM EDT us Nathaly Nowak MD LAB POINT OF CARE TE ST DOCKED DEVICE UNSOLICITED RESULTS Final Result [facility] [address] [place] [address] * (ABNORMAL) POCT glucose meter (11/07/2024 12:10 [...] for testing. Comment 11/07/2024 12:13 AM EDT [facility] Director Of Tax Services ID Nelda Gerber 11/08/19 12:13 AM EDT [facility] Device ID [id number] 11/07/2024 12:13 AM EDT [facility] Specimen Type POC Capillary 11/07/2024 12:13 AM EDT [facility] Blood Capillary blood specimen / Unknown 11/07/2024 12:10 AM EDT 11/07/2024 12:13 AM EDT us Nathaly Nowak MD LAB POINT OF CARE TE ST DOCKED DEVICE UNSOLICITED RESULTS Final Result Performing Organization Address City/[facility]/ZIP Co de Phone Number [facility] [address] [place] [address] * (ABNORMAL) POCT glucose meter (11/06/2024 11:14 [...] Comment 11/06/2024 11:16 PM EDT [facility] LAB Director Of Tax Services ID Nelda Gerber 11/07/19 11:16 PM EDT [facility]ALTH[facility] LAB Device ID [id number] 11/06/2024 11:16 PM EDT [facility] LAB Specimen Type POC Capillary 11/06/2024 11:16 PM EDT [facility] Blood Capillary blood specimen / Unknown 11/06/2024 11:14 PM EDT 11/06/2024 11:16 PM EDT Nathaly Nowak MD LAB POINT OF CARE TE ST DOCKED DEVICE UNSOLICITED RESULTS Final Result Performing Organization Address City/[facility] Co de Phone Number HEALTHCARE LAB [address] [place] [address] * (ABNORMAL) POCT glucose meter (11/06/2024 10:07 [...] Comment 11/06/2024 10:09 PM EDT [facility] LAB Director Of Tax Services ID Nelda Gerber 11/07/19 10:09 PM EDT [facility]ALTH[facility]ARE LAB Device ID [id number] 11/06/2024 10:09 PM EDT [facility] LAB Specimen Type POC Capillary 11/06/2024 10:09 PM EDT [facility] Blood Capillary blood specimen / Unknown 11/06/2024 10:07 PM EDT 11/06/2024 10:09 PM EDT Nathaly Nowak MD LAB POINT OF CARE TE ST DOCKED DEVICE UNSOLICITED RESULTS Final Result Performing Organization Address City/[facility]/ZIP Co de Phone Number [facility]ALTH[facility]ARE LAB [address] [place] [address] * (ABNORMAL) POCT glucose meter (11/06/2024 8:22 [...] Comment 11/06/2024 8:25 PM EDT [facility] Director Of Tax Services ID Nelda Gerber 11/07/19 8:25 PM EDT [facility] Device ID [id number] 11/06/2024 8:25 PM EDT [facility]ALTH[facility] LAB Specimen Type POC Capillary 11/06/2024 8:25 PM EDT [facility] Blood Capillary blood specimen / Unknown 11/06/2024 8:22 PM EDT 11/06/2024 8:25 PM EDT us Nathaly Nowak MD LAB POINT OF CARE TE ST DOCKED DEVICE UNSOLICITED RESULTS Final Result Performing Organization Address City/State/[facility] Co de Phone Number [facility] [address] [place] [address] * (ABNORMAL) POCT glucose meter (11/06/2024 7:31 PM EDT) [facility] POCT Glucose 359(H) 74 - 99 [...] Comment 11/06/2024 7:32 PM EDT [facility]ALTH[facility]ARE LAB Director Of Tax Services ID Nelda Gerber 11/07/19 7:32 PM EDT HEALTHCARE LAB Device ID [id number] 11/06/2024 7:32 PM EDT [facility] LAB Specimen Type POC Capillary 11/06/2024 7:32 PM EDT [facility] Blood Capillary blood specimen / Unknown 11/06/2024 7:31 PM EDT 11/06/2024 7:32 PM EDT Nathaly Nowak MD LAB POINT OF CARE TE ST DOCKED DEVICE UNSOLICITED RESULTS Final Result Performing Organization Address City/[facility]/ZIP Co de Phone Number HEALTHCARE LAB [address] [place] [address] * (ABNORMAL) POCT glucose meter (11/06/2024 6:15 [...] Comment 11/06/2024 6:17 PM EDT [facility]ALTH[facility] LAB Director Of Tax Services ID Estefani Sheth 11/06/2024 6:17 PM EDT [facility] Device ID [id number] 11/06/2024 6:17 PM EDT [facility] Specimen Type POC Capillary 11/06/2024 6:17 PM EDT [facility]ALTH[facility]ARE LAB Blood Capillary blood specimen / Unknown 11/06/2024 6:15 PM EDT 11/06/2024 6:17 PM EDT Nathaly Nowak MD LAB POINT OF CARE TE ST DOCKED DEVICE UNSOLICITED RESULTS Final Result [facility] [address] [place] [address] * (ABNORMAL) POCT glucose meter (11/06/2024 4:57 [...] Comment 11/06/2024 4:58 PM EDT [facility] LAB Director Of Tax Services ID Estefani Sheth 11/06/2024 4:58 PM EDT [facility]ALTH[facility]ARE LAB Device ID [id number] 11/06/2024 4:58 PM EDT [facility] LAB Specimen Type POC Capillary 11/06/2024 4:58 PM EDT [facility] Blood Capillary blood specimen / Unknown 11/06/2024 4:57 PM EDT 11/06/2024 4:58 PM EDT Nathaly Nowak MD LAB POINT OF CARE TE ST DOCKED DEVICE UNSOLICITED RESULTS Final Result Performing Organization Address City/State/[facility] Co de Phone Number HEALTHCARE LAB [address] [place] [address] * (ABNORMAL) POCT glucose meter (11/06/2024 2:08 [...] Comment 11/06/2024 2:09 PM EDT [facility] Director Of Tax Services ID Brigitte Castellon 11/06/2024 2:09 PM EDT HEALTHCARE LAB Device ID [id number] 11/06/2024 2:09 PM EDT [facility] LAB Specimen Type POC Capillary 11/06/2024 2:09 PM EDT [facility] Blood Capillary blood specimen / Unknown 11/06/2024 2:08 PM EDT 11/06/2024 2:09 PM EDT us Nathaly Nowak MD LAB POINT OF CARE TE ST DOCKED DEVICE UNSOLICITED RESULTS Final Result Performing Organization Address City/[facility]/ZIP Co de Phone Number HEALTHCARE LAB [address] [place] [address] * (ABNORMAL) POCT glucose meter (11/06/2024 12:27 PM EDT) [facility] POCT Glucose 228(H) 74 - 99 [...] Comment 11/06/2024 12:28 PM EDT [facility]ALTH[facility]ARE LAB Director Of Tax Services ID Jacinta Galloway 11/06/2024 12:28 PM EDT HEALTH[facility]ARE LAB Device ID [id number] 11/06/2024 12:28 PM EDT [facility] Specimen Type POC Capillary 11/06/2024 12:28 PM EDT [facility] Blood Capillary blood specimen / Unknown 11/06/2024 12:27 PM EDT 11/06/2024 12:28 PM EDT Nathaly Nowak MD LAB POINT OF CARE TE ST DOCKED DEVICE UNSOLICITED RESULTS Final Result Performing Organization Address City/[facility] Co de Phone Number [facility] [address] [place] [address] * (ABNORMAL) Tissue Culture and Gram Stain (11/06/2024 11:34 AM EDT) Pathologist [facility] Culture Moderate Growth 7:35 AM EDT [facility] Culture 2+ Enterobacter cloacae complex(A) ANGÉLICA 11/15/2024 7:35 AM EDT [facility] Comment: This isolate has been identified using the FDA Approved [employer]DI [employer] [place] System The organism value for this result has been updated. These results have been appended to the previously preliminary verified report. Edited result: Previously reported as Gram Negative Jesus on 11/07/2024 at 1434 EDT. Culture 2+ Streptococcus mitis/oralis group(A) ANGÉLICA 11/15/2024 7:35 AM EDT [facility] Comment: This isolate has been identified using the FDA Approved [employer] CA System The organism value for this result has been updated. These results have been appended to the previously preliminary verified report. Culture 2+ Pasteurella stomatis(A) ANGÉLICA 11/15/2024 7:35 AM EDT [facility] Comment: This result was determined by MALDI tof mass spectrometry using the [employer] database and is for research use only. The organism value for this result has been updated. These results have been appended to the previously preliminary verified report. Gram Stain Result Few Gram negative rods(A) 11/15/2024 7:35 AM EDT [facility] Gram Stain Result Moderate Polymorphonuclear leukocytes(A) 11/15/2024 7:35 AM EDT [facility] Gram Stain Result Few Gram positive cocci in pairs(A) 11/15/2024 7:35 AM EDT [facility] Tissue Topography unknown / Unknown 11/06/2024 11:34 AM EDT 11/06/2024 12:18 PM EDT Comment:Pre-op diagnosis: Surgical wound infection [T81.49XA] Narrative [facility] - 11/15/2024 7:35 AM [...] GENERAL ORDAna FRITZ Edited Result - Final [facility] [address] [place] [address] * (ABNORMAL) Anaerobic Culture (11/06/2024 11:34 AM EDT) Culture No anaerobes isolated 11/14/2024 1:25 PM EDT [facility] Culture Staphylococcus pseudintermedius( A) 11/14/2024 1:25 PM EDT [facility] Comment: This result was determined by MALDI tof mass spectrometry using the [employer] database and is for research use only. This is an appended report. These results have been appended to a previously final verified report. Tissue Topography unknown / Unknown 11/06/2024 11:34 AM EDT 11/06/2024 12:18 PM EDT Comment:Pre-op diagnosis: Surgical wound infection [T81.49XA] Narrative [facility] - 11/14/2024 1:25 PM [...] GENERAL ATIYA FRITZ Edited Result - Final [facility] [address] [place] [address] * (ABNORMAL) Routine Culture and Gram Stain (11/06/2024 11:29 AM EDT) Culture Moderate Growth 5:29 PM EDT [facility] Culture Enterobacter cloacae complex(A) 11/08/2024 5:29 PM EDT [facility] Comment: This isolate has been identified using the FDA Approved E[employer]chnyx CA System For susceptibility results refer to: - [id number] The organism value for this result has been updated. These results have been appended to the previously preliminary verified report. Gram Stain Result No polymorphonuclear leukocytes seen 11/08/2024 5:29 PM EDT [facility] Gram Stain Result No organisms seen 11/08/2024 5:29 PM EDT [facility] Swab Topography unknown / Unknown 11/06/2024 11:29 AM EDT 11/06/2024 12:19 PM EDT Comment:Pre-op diagnosis: Surgical wound infection [T81.49XA] Nathaly Nowak MD LAB MICROBIOLOGY - GENERAL ORDAna FRITZ Final Result Performing Organization Address City/[facility] Co de Phone Number [facility] [address] [place] [address] * Fungal Culture, Routine (11/06/2024 11:29 AM EDT) Culture No Fungal Growth at 1 Week 11/13/2024 8:29 AM EDT [facility] Swab Topography unknown / Unknown 11/06/2024 11:29 AM EDT 11/06/2024 12:19 PM EDT Comment:Pre-op diagnosis: Surgical wound infection [T81.49XA] Nathaly Nowak MD LAB MICROBIOLOGY - GENERAL ORDE RABONEIDA Final Result [facility] [address] [place] [address] * (ABNORMAL) Anaerobic Culture (11/06/2024 11:29 AM EDT) Culture No anaerobes isolated 11/14/2024 1:25 PM EDT [facility] Culture Streptococcus mitis/oralis group(A) 11/14/2024 1:25 PM EDT [facility] Comment: This result was determined by MALDI tof mass spectrometry using the [employer] database and is for research use only. The organism value for this result has been updated. These results have been appended to the previously preliminary verified report. This is a corrected result. Previous organism was Mixed skin clifton on 11/10/2024 at 0718 EDT. Culture Staphylococcus pseudintermedius( A) 11/14/2024 1:25 PM EDT [facility] Comment: This isolate has been identified using the FDA Approved [employer]DI [employer] CA System This is an appended report. These results have been appended to a previously final verified report. Swab Topography unknown / Unknown 11/06/2024 11:29 AM EDT 11/06/2024 12:19 PM EDT Comment:Pre-op diagnosis: Surgical wound infection [T81.49XA] Narrative [facility] - 11/14/2024 1:25 PM [...] GENERAL ORDAna FRITZ Edited Result - Final [facility] [address] [place] [address] * Routine Culture and Gram Stain (11/06/2024 11:28 AM EDT) Culture No growth at day 4 2024 11:24 AM EDT [facility] Gram Stain Result No organisms seen 11/10/2024 11:24 AM EDT [facility] Gram Stain Result No polymorphonuclear leukocytes seen 11/10/2024 11:24 AM EDT [facility] Swab Topography unknown / Unknown 11/06/2024 11:28 AM EDT 11/06/2024 12:20 PM EDT Comment:Pre-op diagnosis: Surgical wound infection [T81.49XA] us Nathaly Nowak MD LAB MICROBIOLOGY - GENERAL ATIYA FRITZ Final Result Performing Organization Address [facility] Co de Phone Number [facility] [address] [place] [address] * Fungal Culture, Routine (11/06/2024 11:28 AM EDT) Culture No Fungal Growth at 1 Week 11/13/2024 8:29 AM EDT [facility] Swab Topography unknown / Unknown 11/06/2024 11:28 AM EDT 11/06/2024 12:20 PM EDT Comment:Pre-op diagnosis: Surgical wound infection [T81.49XA] us Nathaly Nowak MD LAB MICROBIOLOGY - GENERAL ORDAna FRITZ Final Result Performing Organization Address City/[facility]/ZIP Co de Phone Number [facility] [address] [place] [address] * Anaerobic Culture (11/06/2024 11:28 AM EDT) Culture No growth at day 4 11/13/2024 12:53 PM EDT [facility] Swab Topography unknown / Unknown 11/06/2024 11:28 AM EDT 11/06/2024 12:20 PM EDT Comment:Pre-op diagnosis: Surgical wound infection [T81.49XA] Nathaly Nowak MD LAB MICROBIOLOGY - GENERAL [facility] Final Result Performing Organization Address City/[facility] Co de Phone Number [facility] [address] [place] [address] * (ABNORMAL) POCT glucose meter (11/06/2024 10:16 [...] Comment 11/06/2024 10:18 AM EDT [facility]ALTH[facility]ARE [facility] Director Of Tax Services ID Lacy Griffin 11/07/19 25 10:18 AM EDT [facility] Device ID [id number] 11/06/2024 10:18 AM EDT [facility] Specimen Type POC Capillary 11/06/2024 10:18 AM EDT [facility] Blood Capillary blood specimen / Unknown 11/06/2024 10:16 AM EDT 11/06/2024 10:18 AM EDT us Nathaly Nowak MD LAB POINT OF CARE TE ST DOCKED DEVICE UNSOLICITED RESULTS Final Result Performing Organization Address City/[facility] Co de Phone Number [facility]ARE [facility] [address] [place] [address] * (ABNORMAL) POCT glucose meter (11/06/2024 5:58 [...] 11/06/2024 6:01 AM EDT [facility] Director Of Tax Services ID Raj Laird 11/07/19 6:01 AM EDT [facility] Device ID [id number] 11/06/2024 6:01 AM EDT [facility] Specimen Type POC Capillary 11/06/2024 6:01 AM EDT [facility] Blood Capillary blood specimen / Unknown 11/06/2024 5:58 AM EDT 11/06/2024 6:01 AM EDT Nathaly Nowak MD LAB POINT OF CARE TE ST DOCKED DEVICE UNSOLICITED RESULTS Final Result Performing Organization Address [facility] Co de Phone Number [facility] [address] [place] [address] * (ABNORMAL) POCT glucose meter (11/06/2024 5:36 AM EDT) [facility] POCT Glucose 202(H) 74 - 99 [...] 11/06/2024 5:38 AM EDT [facility] Director Of Tax Services ID Shahid Sanches 11/06/2024 5:38 AM EDT [facility]ARE LAB Device ID [id number] 11/06/2024 5:38 AM EDT [facility] Specimen Type POC Capillary 11/06/2024 5:38 AM EDT [facility] Blood Capillary blood specimen / Unknown 11/06/2024 5:36 AM EDT 11/06/2024 5:38 AM EDT us Nathaly Nowak MD LAB POINT OF CARE TE ST DOCKED DEVICE UNSOLICITED RESULTS Final Result Performing Organization Address City/[facility]/ZIP Co de Phone Number [facility] [address] [place] [address] * (ABNORMAL) Hemoglobin A1c (11/06/2024 1:07 AM EDT) Hemoglobin A1c 7.6(H) <5.7 % 11/06/2024 11:09 AM EDT [facility] Blood Venous blood specimen / Unknown Venipuncture / Unknown 11/06/2024 1:07 AM EDT 11/06/2024 1:26 AM EDT Narrative [facility] - 11/06/2024 11:09 AM EDT HA1C Interpretive Data: Diagnosis of Diabetes: Diabetic > or = 6.5% Pre-diabetic 5.7 to 6.4% Non-diabetic < or = 5.6% Glycemic Targets for Type I and Type II Diabetics: Non- Adults <7.0% Adults <6.0% Children and Adolescents <7.5% Source: [place] [employer]. Standards of medical care in diabetes,2017. Diabetes Care.2017:40 (suppl 1):S1-S135. us Nathaly Nowak MD LAB BLOOD ORDERABLES Final Resu lt [facility] [address] [place] [address] * Blood Culture (Aerobic/Anaerobet Set) (11/06/2024 1:07 AM EDT) Culture No growth at day 5 11/11/2024 2:49 AM EDT [facility] Blood Structure of right hand / Unknown Venipuncture / Unknown 11/06/2024 1:07 AM EDT 11/06/2024 2:36 AM EDT us Nathaly Nowak MD LAB MICROBIOLOGY - GENERAL ORDE RABLES Final Result [facility] [address] [place] [address] * Blood Culture (Aerobic/Anaerobet Set) (11/06/2024 1:07 AM EDT) Culture No growth at day 5 11/11/2024 3:01 AM EDT [facility] Blood Structure of antecubital vein / Unknown Venipuncture / Unknown 11/06/2024 1:07 AM EDT 11/06/2024 2:36 AM EDT us Nathaly Nowak MD LAB MICROBIOLOGY - GENERAL ATIYA FRITZ Final Result [facility] [address] [place] [address] * (ABNORMAL) Basic metabolic panel (11/06/2024 1:07 AM EDT) Glucose, Plasma 207(H) 74 - 99 mg/dL 11/06/2024 1:41 AM EDT [facility] BUN, Plasma 20 8 - 23 mg/dL 11/06/2024 1:41 AM EDT [facility] Creatinine, Plasma 0.92 0.70 - 1.20 mg/dL 11/06/2024 1:41 AM EDT [facility] BUN/Creatinine Ratio 22 11/06/2024 1:41 AM EDT [facility] Sodium, Plasma 136 136 - 145 mmol/L 11/06/2024 1:41 AM EDT [facility] Potassium, Plasma 4.5 3.6 - 4.9 mmol/L 11/06/2024 1:41 AM EDT [facility] Chloride, Plasma 104 97 - 107 mmol/L 11/06/2024 1:41 AM EDT [facility] CO2, Plasma 22 22 - 29 mmol/L 11/06/2024 1:41 AM EDT [facility] Anion Gap 10 6 - 16 mmol/L 11/06/2024 1:41 AM EDT [facility] Total Calcium, Plasma 9.0 8.9 - 10.2 mg/dL 11/06/2024 1:41 AM EDT [facility] eGFRcr 92.3 mL/min/1.7 3m*2 11/06/2024 1:41 AM EDT [facility] Comment:Reported eGFRcr in m L/min/1.73m2 is based the CKD-EPI 2020 equation that does not use a race coefficient. Blood Venous blood specimen / Unknown Venipuncture / Unknown 11/06/2024 1:07 AM EDT 11/06/2024 1:12 AM EDT Nathaly Nowak MD LAB BLOOD ORDERABLES Final Resu lt Performing Organization Address [facility]/ZIP Co de Phone Number [facility] [address] [place] [address] * Phosphorus (11/06/2024 1:07 AM EDT) Phosphorus, Plasma 3.2 2.5 - 4.5 mg/dL 11/06/2024 1:41 AM EDT [facility] Blood Venous blood specimen / Unknown Venipuncture / Unknown 11/06/2024 1:07 AM EDT 11/06/2024 1:12 AM EDT Nathaly Nowak MD LAB BLOOD ORDERABLES Final Resu lt Performing Organization Address [facility] Co de Phone Number [facility] [address] [place] [address] * Magnesium (11/06/2024 1:07 AM EDT) Magnesium, Plasma 2.2 1.9 - 2.4 mg/dL 11/06/2024 1:41 AM EDT [facility] Blood Venous blood specimen / Unknown Venipuncture / Unknown 11/06/2024 1:07 AM EDT 11/06/2024 1:12 AM EDT Nathaly Nowak MD LAB BLOOD ORDERABLES Final Resu lt Performing Organization Address City/[facility] Co de Phone Number [facility] [address] [place] [address] * (ABNORMAL) CBC (11/06/2024 1:07 AM EDT) WBC Count 9.70 3.70 - 10.30 10*3/uL LAB HEMATOLOGY METHOD 11/06/2024 1:19 AM EDT [facility] RBC Count 2.89(L) 4.60 - 6.10 10*6/uL LAB HEMATOLOGY METHOD 11/06/2024 1:19 AM EDT [facility] HGB 8.8(L) 13.7 - 17.5 g/dL LAB HEMATOLOGY METHOD 11/06/2024 1:19 AM EDT [facility] HCT 26.2(L) 40.0 - 51.0 % LAB HEMATOLOGY METHOD 11/06/2024 1:19 AM EDT [facility] Platelet Count 542(H) 155 - 369 10*3/uL LAB HEMATOLOGY METHOD 11/06/2024 1:19 AM EDT [facility] MCV 91 79 - 98 fL LAB HEMATOLOGY METHOD 11/06/2024 1:19 AM EDT [facility] MCH 30.4 26.0 - 32.0 pg LAB HEMATOLOGY METHOD 11/06/2024 1:19 AM EDT [facility] MCHC 33.6 30.7 - 35.5 g/dL LAB HEMATOLOGY METHOD 11/06/2024 1:19 AM EDT [facility] RDW 13.2 11.5 - 14.5 % LAB HEMATOLOGY METHOD 11/06/2024 1:19 AM EDT [facility] MPV 8.7(L) 8.8 - 12.5 fL LAB HEMATOLOGY METHOD 11/06/2024 1:19 AM EDT [facility] nRBC 0.0 <=0.0 per 100 WBCs LAB HEMATOLOGY METHOD 11/06/2024 1:19 AM EDT [facility] Blood Venous blood specimen / Unknown Venipuncture / Unknown 11/06/2024 1:07 AM EDT 11/06/2024 1:12 AM EDT us Nathaly Nowak MD LAB BLOOD ORDERABLES Final Resu lt [facility] [address] [place] [address] * [facility] (11/06/2024 12:58 AM EDT) Extra Hold for add-ons 11/06/2024 3:21 AM EDT [facility] Comment:Auto resulted. Blood Venous blood specimen / Unknown 11/06/2024 12:58 AM EDT 11/06/2024 1:13 AM EDT Result Ghazala Nowak MD LAB BLOOD ORDERABLES Final Resu lt Performing Organization Address [facility]/ZIP Co de Phone Number [facility] [address] [place] [address] * Gold Top (11/06/2024 12:58 AM EDT) Extra Hold for add-ons 11/06/2024 3:21 AM EDT [facility] Comment:Auto resulted. Blood Venous blood specimen / Unknown 11/06/2024 12:58 AM EDT 11/06/2024 1:13 AM EDT Result Ghazala Nowak MD LAB BLOOD ORDERABLES Final Resu lt Performing Organization Address [facility] de Phone Number [facility] [address] [place] [address] * Light Green Top (11/06/2024 12:58 AM EDT) Extra Hold for add-ons 11/06/2024 3:21 AM EDT [facility] Comment:Auto resulted. Blood Venous blood specimen / Unknown 11/06/2024 12:58 AM EDT 11/06/2024 1:13 AM EDT Result Ghazala Nowak MD LAB BLOOD ORDERABLES Final Resu lt Performing Organization Address City/[facility] Co de Phone Number [facility] [address] [place] [address] * Light Blue Top (11/06/2024 12:58 AM EDT) Extra Hold for add-ons 11/06/2024 3:21 AM EDT [facility] Comment:Auto resulted. Blood Venous blood specimen / Unknown 11/06/2024 12:58 AM EDT 11/06/2024 1:13 AM EDT us Nathaly Nowak MD LAB BLOOD ORDERABLES Final Resu lt Performing Organization Address City/[facility]/ZIP Co de Phone Number [facility] [address] [place] [address] * Light Blue Top (11/06/2024 12:58 AM EDT) Pathologist [facility] Extra Hold for add-ons 11/06/2024 3:21 AM EDT [facility] Comment:Auto resulted. Blood Venous blood specimen / Unknown 11/06/2024 12:58 AM EDT 11/06/2024 1:13 AM EDT us Nathaly Nowak MD LAB BLOOD ORDERABLES Final Resu lt Performing Organization Address [facility] Co de Phone Number [facility] [address] [place] [address] * (ABNORMAL) POCT glucose meter (11/06/2024 12:45 AM EDT) [facility] POCT Glucose 204(H) 74 - 99 [...] 11/06/2024 12:48 AM EDT [facility] Director Of Tax Services ID Raj Laird 11/07/19 12:48 AM EDT HEALTHCARE LAB Device ID [id number] 11/06/2024 12:48 AM EDT [facility] Specimen Type POC Capillary 11/06/2024 12:48 AM EDT [facility] Blood Capillary blood specimen / Unknown 11/06/2024 12:45 AM EDT 11/06/2024 12:48 AM EDT us Nathaly Nowak MD LAB POINT OF CARE TE ST DOCKED DEVICE UNSOLICITED RESULTS Final Result Performing Organization Address City/[facility] Co de Phone Number [facility] [address] [place] [address] documented in this encounter Visit Diagnoses Diagnosis [...] Yadira 11/14/24 at 1015, Until Discontinued, Routine Given 11/14/2024 [...] needed, Starting on Mon11/06/24 at 0753, Until [facility] 11/14/24 at 1804, Routine, On Unit [...] Bo) 0918 (Canceled Entry - Provider: Bianca Knight PharmD - Comment: due at 0900)0930 (New [...] Units, Subcutaneous, 2 times nightly (2100 & 299), First dose on Mon11/07/24 at 2100, Until Discontinued, Routine 221 (Not Given - Provider: Jonathan Vale RN - Reason: Order parameters not met)2125 (Not Given - Provider: Jonathan Vale RN - Reason: Order parameters not met) 257 (Not Given - Provider: Jonathan Vale RN - Reason: Order parameters not met)2099 (Given - Provider: Jonathan Vale RN) 0413 [...] Provider: Devora Bo)2033 (Given - Provider: Jonathan aVle, CHRISTIAN) 0856 (Given - Provider: Yazmin Bhatt [...] Routine 1402 (Given - Provid er: Yazmin Bhatt, CHRISTIAN) Povidone-Iodine 5 % swab solution 1 Application [...] documented as of this encounter Care Teams V Belt Coverer Relationship Specialty Start Date End Date Asad Victor MD [address] [place] [id number] PCP - General 10/07/22 documented as of this encounter
--- OUTSIDE RECORDS SUMMARY | 2024-11-06 10:47 | XMS_ITS | Encounter Summary ---
Author Organization Healthcare Address [address] [place] [address] Care Team Providers Care Enamel Pulverizer Name Role Phone Asad Victor MD Primary Care Provider + [phone] Reason for Visit * Auth/Cert (Routine) Specialty Diagnoses / Procedures Referred By Contac t Referred To Contact Diagnoses Wound infection Post-op Vasc Sx wounds - sx on 10/17 at Nathaly Nowak MD [address] [facility] [address] [place] [address] Phone: tel: fax: [facility] Emergency Department [address] [place] [address] Phone: tel: Referral ID Status Reason Start Date Expiration Date Visits Re quested Visits Authorized [id number] 1 1 Encounter Details Date Type Department Care Team (Late st Contact Info) Description 11/06/2024 10:47 AM EDT Anesthesia Event [facility] OPERATING ROOM [address] [place] [address] Bill Sue MD [address] [place] [address] Sabrina Mckeon PA [address] [facility] [address] [place] [address] Anesthesia Record Procedure Summary Procedure [...] living in a prison (including now)? No 11/07/2024 CAGE ASSESSMENT Answer [...] drink first t dino in the morning (EYE-FITNESS SALES CONSULTANT) to steady your nerves or to [...] and Staff Patient location during procedure: OR WOUND/OSTOMY NURSE: Asad Lechuga CRNA, DNP Performed: WOUND/OSTOMY NURSE Patient Condition Indications for airway management: anesthesia [...] placement (Left) Location: [facility] OR 16 / [place] OR Surgeons: Nathaly Nowak MD [facility] Mono Ana Bobby is a 64 y.o. [...] Abnormal Ventricular Rate 85 Atrial Rate 85 [place] Interval 146 QRSD Interval 128 QT Interval 390 QTC Interval 464 P [place] 52 R [place] 263 T Wave [place] 57 Diagnosis Atrial-sensed ventricular-paced rhythm Diagnosis Biventricular [...] is no recent study available for direct qbpo-za-[id number] comparison. [facility]: Pre-operative CIED Report Assessment and Sara- Procedural Reommendations: Name: Mono Bobby Date: 10/17/2024 : 1960 Age: 64 y.o. Patient has a Car Unloader Helper: Berger SECOND OFFICER-PM Remaining battery longevity adequate. Lead integrity test [...] RVR s/p CABG), CAD (CAD s/p multiple [place]'s and 3V CABG02/2019, 2 stents prior to CABG), carotid artery disease (carotid artery disease s/p R CEA 2016), dysrhythmias (3rd degree AV block SECOND OFFICER-P placed 08/2023 for Wenkeback with 11 sec pause), hyperlipidemia, pacemaker and PVD. Does not have angina, CHF, murmur, orthopnea, syncope or valvular heart disease. hypertension: Cardio additional comments: Follows with OSH Card last seen 09/25/24 ([place]) . Respiratory: home oxygen (2L). no asthma: [...] ENDARTERECTOMY N/A 2017 Endarterectomy Carotid Artery from [employer] CORONARY ANGIOPLASTY Left Coronary Angiography With Concomitant Left Heart Catheterization from [employer] CORONARY ARTERY BYPASS GRAFT N/A 2018 3V ELBOW SURGERY Right ENDARTERECTOMY Left 10/17/2024 common/SFA/Profunda thromboendarterectomy, EIA/TILE LAYER stent HERNIA REPAIR KNEE ARTHROSCOPY Left VASCULAR SURGERY Left 09/21/2024 TILE LAYER pseudoaneurym injection [5] Social History Tobacco Use [...] Description 11/29/2024 2:30 PM EDT Office Visit [facility] [address] [place] [address] Oscar Appiah MD [address] [facility] [address] [place] [address] documented as of this encounter Goals Goal Patient Goal Type Associated Problems Recent Progress Patient-Stated? Author Autogenera louise Goal Care Plan Autogenerated Problem No Ekta Arnett documented as of this encounter Procedures Procedure Name Priority Date/Time Associated Diagnosis Comments PB ANESTHESIA PLACEHOLDER Routine 11/06/2024 10:58 AM EDT [place] AN ELECTIVE ENDOTRACHEAL AIRWAY Routine 11/06/2024 10:58 AM EDT documented in this encounter Results * UT AN ELECTIVE ENDOTRACHEAL AIRWAY, PB ANESTHESIA PLACEHOLDER (11/06/2024 10:58 AM EDT) Narrative Asad Lechuga CRNA, DNP - 11/06/2024 10:58 AM EDT Asad Lechuga CRNA, DNP 11/06/2024 11:05 AM Airway Date/Time: 11/06/2024 10:58 AM Reason: elective Airway not difficult General Information and Staff Patient location during procedure: OR WOUND/OSTOMY NURSE: Asad Lechuga CRNA, DNP Performed: ISH Patient [...] documented as of this encounter Care Teams Enamel Pulverizer Relationship Specialty Start Date End Date Asad Victor MD [address] [place], [place] [phone] PCP - General 10/07/22 documented as of this encounter
--- OUTSIDE RECORDS SUMMARY | 2024-11-18 13:10 | XMS_ITS | Encounter Summary ---
Author Organization [employer] ([place], [place], [place], [place]) Address [address] [place] [address] Care Team Providers Care Digester Capper Name Role Phone Unavailable Primary Care Provider Unavailabl e Reason for Visit * Reason Comments Wound Care Encounter Details Date Type Department Care Team (Late st Contact Info) Description 11/18/2024 1:10 PM EDT Office Visit [facility] [address] [place] [address] Jerry Monroe Jr., MD [address] [place] [address] Non-pressure chronic ulcer of skin of [...] health nurse( if you have home health) [facility] for an appointment. documented in this [...] upper leg. Patient was admitted to the [facility] on November 05, 2024 [...] line. Patient is getting daily infusions at [facility] through his PICC line for antibiotics. [...] verified the correct patient, procedure, equipment, support associate, and site/side marked as required. Debridement Details [...] verified the correct patient, procedure, equipment, support associate, and site/side marked as required. Debridement Details [...] Description 11/27/2024 2:20 PM EDT [facility] Visit [facility] [address] [place] [address] Jerry Monroe Jr., MD [address] [place] [address] 11/29/2024 4:00 PM EDT Clinical Support [facility] [address] [address] 12/02/2024 2:15 PM EDT [facility] [address] [address] 12/04/2024 3:10 PM EDT Office Visit [address] [address] Jerry Monroe Jr., MD [address] [place] [address] 12/06/2024 4:15 PM EDT [facility] [address] [address] 12/09/2024 3:30 PM EDT [facility] [address] [address] 12/11/2024 2:40 PM EDT [facility] Visit [facility] [address] [address] Jerry Monroe Jr., MD [address] [place] [address] 12/13/2024 3:30 PM EDT Clinical Support [facility] [address] [place] [address] 12/16/2024 3:30 PM EDT Clinical Support [facility] [address] [place] [address] 12/18/2024 3:00 PM EDT Office Visit [facility] [place] 1 [place] [address] Jerry Monroe Jr., MD [address] [place] [address] 12/20/2024 3:30 PM EDT Clinical Support [facility] 1 [place] [address] documented as of this encounter Procedures Procedure Name Priority Date/Time Associated Diagnosis Comments [place] DEBRIDEMENT MUSCLE &/FASCIA EA ADDL 20 SQ CM Routine 11/18/2024 1:10 PM EDT 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) Localized tissue (HCC) Other specified local infections of the skin and subcutaneous tissue MN DEBRIDEMENT MUSCLE &/FASCIA EA ADDL 20 SQ CM Routine 11/18/2024 1:10 PM EDT 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) Localized tissue (HCC) Other specified local infections of the skin and subcutaneous tissue MN DEBRIDEMENT MUSCLE &/FASCIA 1ST 20 SQ CM/< Routine 11/18/2024 1:10 PM EDT 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) Localized tissue (HCC) Other specified local infections of the skin and subcutaneous tissue MN DEBRIDEMENT MUSCLE &/FASCIA EA ADDL 20 SQ CM Routine 11/18/2024 1:10 PM EDT 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) Localized tissue (HCC) Other specified local infections of the skin and subcutaneous tissue MN DEBRIDEMENT MUSCLE &/FASCIA EA ADDL 20 SQ CM Routine 11/18/2024 1:10 PM EDT 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) Localized tissue (HCC) Other specified local infections of the skin and subcutaneous tissue MN DEBRIDEMENT MUSCLE &/FASCIA 1ST 20 SQ CM/< Routine 11/18/2024 1:10 PM EDT 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 Debridement Details [...] MD PROCEDURE/MINOR SURGICAL ORDERABLES Final Result * [place] DEBRIDEMENT MUSCLE &/FASCIA 1ST 20 SQ CM/<, [place] DEBRIDEMENT MUSCLE &/FASCIA EA ADDL 20SQ CM, [place] DEBRIDEMENT MUSCLE &/FASCIA EA ADDL 20 SQ [...] verified the correct patient, procedure, equipment, support associate, and site/side marked as required. Debridement Details [...]
--- OUTSIDE RECORDS SUMMARY | 2024-11-20 14:15 | XMS_ITS | Encounter Summary ---
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 Attached media from the original note were not included. 11/20/24 1439 Wound 11/18/24 Groin Left Date First Assessed/Time First Assessed: 11/18/24 1508 Wound Approximate Age at First Assessment (Weeks): 4 weeks Location: Groin Wound Location Orientation: Left Wound Image Images linked Site Assessment Granulation;Sloughing Sara-Wound Assessment Scarred Wound Length (cm) 7.5 cm Wound Width (cm) 7 cm Wound Surface Area (cm^2) 52.5 cm^2 Wound Depth (cm) 6 cm Wound Volume (cm^3) 315 cm^3 Undermining 3.5 cm Undermining Clock Position of Wound 1 Undermining Clock Position End of Wound 4 Margins Well-defined edges Wound Healing % -21 Drainage Description Serosanguineous Drainage Amount Large Odor None Wound Bed Granulation (%) 70 % Wound Bed Slough (%) 30 % Non-staged Wound Description Full thickness * Roselia Peña - 11/20/2024 2:15 PM EDT Patient seen today for non provider visit. During measurements and photos, a tunnel was found in the upper medial leg and white foam was addedto that Dressing removed as follows: Wound vac and drape, black foam, white foam Dressing applied per order as indicated below: Remove dressings. Clean wound with 0.9 % normal saline. May use Lidocaine 5% as needed for pain control during clinic appointments. Skin barrier film to sara wounds and window pane AND may use eakins as needed Wound site- left groin Primary- black foam and NPWT at 125mmhg continous Change-3x week Wound site left upper medial leg Primary- white foam in wound base and into tunnel at distal part of knee wound, then black foam andNPWT at 125 mmhg continous Change 3x week Use y connector to connect both wounds Dressings to be changed 3 times a week. Will need nurse visits 2 times a week for NPWT dressing changes. Return in one week for follow up appointment. The week of Day, change NPWT dressing on Monday and Monday only. Use above orders for all non-provider visits. No orders of the defined types were placed in this encounter. documented in this encounter Plan of Treatment Upcoming Encounters Date Type Department Care Team (Late st Contact Info) Description 11/27/2024 2:20 PM EDT Office Visit [facility] [place] 1 [place] [address] Jerry Monroe Jr., MD [address] [place] [address] 11/29/2024 4:00 PM EDT Clinical Support [facility][1] 1 [place] [address] 12/02/2024 2:15 PM EDT Clinical Support [facility][1] 1 [place] [address] 12/04/2024 3:10 PM EDT Office Visit [facility][1] 1 [place] [address] Jerry Monroe Jr., MD [address] [place] [address] 12/06/2024 4:15 PM EDT Clinical Support [facility][1] 1 [place] [address] 12/09/2024 3:30 PM EDT Clinical Support [facility][1] 1 [place] [address] 12/11/2024 2:40 PM EDT Office Visit [facility][1] 1 [place] [address] Jerry Monroe Jr., MD [address] [place] [address] 12/13/2024 3:30 PM EDT Clinical Support [facility][1] 1 [place] [address] 12/16/2024 3:30 PM EDT Clinical Support [facility] [place] 1 [place] [address] 12/18/2024 3:00 PM EDT Office Visit [facility] 1 [place] [address] Jerry Monroe Jr., MD [address] [place] [address] 12/20/2024 3:30 PM EDT Clinical Support [facility] 1 [place] [address] documented as of this encounter Results * Wound Treatment (11/22/2024 5:14 PM EDT) us Jerry Monroe Jr., MD NURSING PATHWAYS ORDERABL ES Final Result documented in this encounter Visit Diagnoses Diagnosis 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
--- OUTSIDE RECORDS SUMMARY | 2024-11-22 16:15 | XMS_ITS | Encounter Summary ---
Author Organization [email or web address] ([place], [place], [place], [place]) Address [address] [place] [address] Care Team Providers Care Film Developer Name Role Phone Unavailable Primary Care Provider Unavailabl e Reason for Visit * Reason Comments Wound Care Encounter Details Date Type Department Care Team (Late st Contact Info) Description 11/22/2024 4:15 PM EDT Clinical Support [facility] 1 [place] [address] Jerry Monroe Jr., MD [address] [place] [address] Non-pressure chronic ulcer of skin of [...] Description 11/27/2024 2:20 PM EDT Office Visit [facility]ound [facility] [place] 1 [place] [address] Jeryr Monroe Jr., MD [address] [place] [address] 11/29/2024 4:00 PM EDT Clinical Support [facility] 1 [place] [address] 12/02/2024 2:15 PM EDT Clinical Support [facility] [place] 1 [place] [address] 12/04/2024 3:10 PM EDT Office Visit [facility] [place] 1 [place] [address] Jerry Monroe Jr., MD [address] [place] [address] 12/06/2024 4:15 PM EDT Clinical Support [facility] [place] 1 [place] [address] 12/09/2024 3:30 PM EDT Clinical Support [facility] 1 [place] [address] 12/11/2024 2:40 PM EDT Office Visit [facility] 1 [place] [address] Jerry Monroe Jr., MD [address] [place] [address] 12/13/2024 3:30 PM EDT Clinical Support [address] [address] 12/16/2024 3:30 PM EDT Clinical Support [address] [address] 12/18/2024 3:00 PM EDT Office Visit [address] [address] Jerry Monroe Jr., MD [address] [place] [address] 12/20/2024 3:30 PM EDT Clinical Support [address] [address] documented as of this encounter Procedures Procedure [...]
--- OUTSIDE RECORDS SUMMARY | 2024-11-26 14:00 | XMS_ITS | Encounter Summary ---
Author Organization [facility] Address [address] [place] [address] Care Team Providers Care White Metal Caster Name Role Phone Asad Victor MD Primary Care Provider + [phone] Reason for Visit * Imaging (Routine) - Authorized Specialty Diagnoses / Procedures Referred By Contac t Referred To Contact Cardiology Diagnoses Critical limb ischemia of left lower extremity Pseudoaneurysm of left femoral artery (CMS/HCC) Procedures VAS US Arterial Duplex Lower Extremity Unilateral Left Terrell Gautam MD [address] [facility] [address] [place] [address] Phone: tel: fax: Referral ID Status Reason Start Date Expiration Date Visits Requested Visits Authorized [id number] Authorized Perform Procedure 10/19/2024 04/20/2026 1 1 Encounter Details Date Type Department Care Team (Late st Contact Info) Description 11/26/2024 2:00 PM EDT Hospital Encounter [place] [facility] [address] [facility] 5th Floor [address] [place] [address] Social History Tobacco Use Types [...] first t dino in the morning (EYE-CARTON FILLER) to steady your nerves or to get [...] Description 11/29/2024 2:30 PM EDT Office Visit [facility] [address] [place] [address] Oscar Appiah MD [address] [facility] [address] [place] [address] Scheduled Orders Name Type Priority [...] documented as of this encounter Care Teams White Metal Caster Relationship Specialty Start Date End Date Asad Victor MD [address] [place] [address] PCP - General 10/07/22 documented as of this encounter
--- OUTSIDE RECORDS SUMMARY | 2024-11-26 14:30 | XMS_ITS | Encounter Summary ---
Author Organization [facility] Address [address] [place] [address] Care Team Providers Care Saddle And Side Wire Stitcher Name Role Phone Asad Victor MD Primary Care Provider + [phone] Reason for Visit * Imaging (Routine) - Authorized Specialty Diagnoses / Procedures Referred By Contac t Referred To Contact Cardiology Diagnoses Critical limb ischemia of left lower extremity Pseudoaneurysm of left femoral artery (CMS/HCC) Procedures VAS Ankle Brachial Index - Segmental Terrell Gautam MD [address] [facility] [address] [place] [address] Phone: tel: fax: Referral ID Status Reason Start Date Expiration Date Visits Requested Visits Authorized [id number] Authorized Perform Procedure 10/19/2024 04/20/2026 1 1 Encounter Details Date Type Department Care Team (Late st Contact Info) Description 11/26/2024 2:30 PM EDT Hospital Encounter [place] [facility] [address] [facility] 5th Floor [address] [place] [address] Social History Tobacco Use Types [...] drink first t dino in the morning (EYE-STRATEGIC ALLIANCES MANAGER) to steady your nerves or to [...] Description 11/29/2024 2:30 PM EDT Office Visit [facility] [address] [place] [address] Oscar Appiah MD [address] [facility] [address] [place] [address] Scheduled Orders Name Type Priority [...] documented as of this encounter Care Teams Saddle And Side Wire Stitcher Relationship Specialty Start Date End Date Asad Victor MD [address] [place] [address] PCP - General 10/07/22 documented as of this encounter
--- OUTSIDE RECORDS SUMMARY | 2024-11-27 08:06 | XMS_ITS | Encounter Summary ---
Author Organization Healthcare Address [address] [place] [place] [id number] Care Team Providers Care Speech Assistant Name Role Phone Asad Victor MD Primary Care Provider + [phone] Reason for Visit * Reason Onset Date Comments HCN Clinical Concern/Question 11/15/2024 Encounter Details Date Type Department Care Team (Late st Contact Info) Description 11/15/2024 Telephone [place] [facility] [address] [facility] 5th Floor [address] [place] [address] Nathaly Nowak MD [address] [facility] [address] [place] [address] HCN Clinical Concern/Question Social History [...] first t dino in the morning (EYE-CREDIT VERIFICATION CLERK) to steady your nerves or to [...] with info. Thank you Best contact number: [phone] (mobile) Optimal time of day to reach caller: ANYTIME Additional comments/information from caller: None Note: Please do not reply to this message. Follow-up communication and further actions as a result of this message need to be communicated with the patient directly, if the patient is not active onMyChart. If the patient is active on MyChart, they will receive notification of the communication/outcome via [employer]. documented in this encounter Plan of Treatment Upcoming Encounters Date Type Department Care Team (Late st Contact Info) Description 11/29/2024 2:30 PM EDT Office Visit [address] [address] Oscar Appiah MD [address] [place] [address] documented as of this encounter Goals [...] documented as of this encounter Care Teams Speech Assistant Relationship Specialty Start Date End Date Asad Victor MD [address] [facility] [place] [address] PCP - General 10/07/22 documented as of this encounter
--- OUTSIDE RECORDS SUMMARY | 2024-11-27 08:06 | XMS_ITS | Encounter Summary ---
Author Organization [facility] Address [address] [place] [address] Care Team Providers Care Die Presser Name Role Phone Asad Victor MD Primary Care Provider + [phone] Encounter Details Date Type Department Care Team [...] first t dino in the morning (EYE-PEDIATRIC ORTHODONTIST) to steady your nerves or to get [...] Office Visit [facility] [address] [place] [address] Oscar Appiah MD [address] [facility] [address] [place] [address] documented as of this encounter Goals Goal [...] documented as of this encounter Care Teams Die Presser Relationship Specialty Start Date End Date Asad Victor MD [address] [place] [address] PCP - General 10/07/22 documented as of this encounter
--- OUTSIDE RECORDS SUMMARY | 2024-11-27 08:07 | XMS_ITS | Clinical Summary ---
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 findings. Terrell Gautam MD IMG FLUOROSCOPY PROCEDURES Fi nal Result Performing Organization Address [facility] Co de Phone Number IMAGING * POCT ACT (10/17/2024 12:23 PM EDT) Only the most recent of6 resultswithin the time period is included. ACT+ (HIGH RANGE) 211 68 - 600 Seconds 10/29/2024 7:28 AM EDT [facility] Roof Shingler ID Donna Mcmillan 10/29/2024 7:28 AM EDT [facility] ACT Device ID [id number] 10/29/2024 7:28 AM EDT [facility]ALTH[facility] Comment [...] UNSOLICITED RESULTS Final Result Performing Organization Address City/[facility] Co de Phone Number [facility] [address] [facility] [address] [place] [address] * (ABNORMAL) Blood gas, arterial (10/17/2024 11:48 [...] 10/17/2024 11:53 AM EDT us Jenna Lopez SLEEPING CAR PORTER LAB BLOOD ORDERABLES Final Re sult [facility] [address] [place] [address] * Surgical Pathology Exam (10/17/2024 10:27 AM EDT) Case Report Surgical Pathology Case: [id number] Authorizing Provider: Terrell Gautam MD Collected: 10/17/2024 1027 Ordering Location: [facility] A OPERATING ROOM Received: 10/17/2024 [...] cm. The specimen is serially sectioned and motor vehicle representative sections are submitted in cassette A1. Cold Time: <1m Kenia Aceves 10/21/2024 10:16 AM EDT [facility] Result [facility] [address] [place] [address] * ANESTHESIA ULTRASOUND GUIDED (10/17/2024 8:52 AM [...] Performed by Swetha Villareal MD Staffing Performed: SLEEPING CAR PORTER SLEEPING CAR PORTER: Jenna Lopez CRNA Maria Fernanda Mccallum MD ANESTHESIA ORDERABLES Edite d Result - Final * [place] AN ELECTIVE ENDOTRACHEAL AIRWAY, PB ANESTHESIA PLACEHOLDER (10/17/2024 8:03 AM EDT) Narrative Jenna Lopez CRNA - 10/17/2024 8:03 AM EDT Jenna Lopez CRNA 10/17/2024 9:00 AM Airway Date/Time: 10/17/2024 8:03 AM Reason: elective Airway not difficult General Information and Staff Patient location during procedure: OR SLEEPING CAR PORTER: Jenna Lopez CRNA Performed: SLEEPING CAR PORTER Patient Condition Indications for airway management: anesthesia [...] MD ANESTHESIA ORDERABLES Final Result * [facility] AN POCUS CARDIAC PROCDOC (10/17/2024 7:18 [...] Modality Other Narrative 10/17/2024 9:50 AM EDT [facility]: Pre-operative CIED Report Assessment and Sara-Procedural Reommendations: Name: Mono Bobby Date: 10/17/2024 : 1960 Age: 64 y.o. 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 Lead integrity test [...] recommendations. Supporting reports can be found in Etece file. Emelina DOSHI CV IMPLANTABLE CARDIAC DEV [...] 7:15 PM EDT CLINICAL INDICATION: s/p L MEDICAL INSURANCE CLERK pseudoaneurysm injection TECHNIQUE: Non-invasive, real time duplex [...] sac. The following flow velocities were obtained: MEDICAL INSURANCE CLERK: 114 cm/s SFA: 0 cm/s PFA: 278 cm/s Popliteal A: 41 cm/s FITTER TACKER distal: 43 cm/s DPA: 67 cm/s Pseudoaneurysm sac: 0 cm/s Procedure Note Neil Isaac MD - 09/22/2024 CLINICAL INDICATION: s/p L MEDICAL INSURANCE CLERK pseudoaneurysm injection TECHNIQUE: Non-invasive, real time duplex exam of the lower extremity arterialcirculation with Doppler ultrasonic waveform and spectral analysis wasperformed. COMPARISON: Post pseudoaneurysm thrombin injection arterial duplex [id number]/28/2025; Following thrombin injection of the left common femoral arterypseudoaneurysm, no active flow is noted. Study suggests successfulthrombin injection therapy FINDINGS: Left: Following thrombin injection, an echogenic thrombus is noted within thepseudoaneurysm sac. Color and pulsed Doppler analysis demonstrates anabsence of flow within the pseudoaneurysm sac. The following flowvelocities were obtained: MEDICAL INSURANCE CLERK: 114 cm/s SFA: 0 cm/s PFA: 278 cm/s Popliteal A: 41 cm/s FITTER TACKER distal: 43 cm/s DPA: 67 cm/s Pseudoaneurysm [...] 11:01 AM Final report signed by Neil Isaca MD on 09/22/2024 7:15 PM us Nathaly [...] ECG Atrial Rate 85 BPM MUSE ECG WY Interval 146 ms MUSE ECG QRSD Interval 128 ms MUSE ECG QT Interval 390 ms MUSE ECG QTC Interval 464 ms MUSE ECG P Mitchell 52 degrees MUSE ECG R Mitchell 263 degrees MUSE ECG T Wave Mitchell 57 degrees MUSE ECG Diagnosis Atrial-sensed ventricular-pace [...] Reactive Non Reactive 09/20/2024 11:39 PM EDT [facility] Comment:Screening for HIV 1 & 2 antibodies, and P24 antigen is NONREACTIVE. No confirmatory testing is required. Blood Venous blood specimen / Unknown Venipuncture / Unknown 09/20/2024 10:33 PM EDT 09/20/2024 10:54 PM EDT us Giorgi Perkins MD LAB BLOOD ORDERABLES Final Result Performing Organization Address City/[facility]/ZIP Co de Phone Number [facility] [address] [place] [address] * Hepatitis C Antibody - ED (09/20/2024 10:33 PM EDT) Hepatitis C Antibody Negative Negative 09/20/2024 11:39 PM EDT [facility] Blood Venous blood specimen / Unknown Venipuncture / Unknown 09/20/2024 10:33 PM EDT 09/20/2024 10:53 PM EDT us Giorgi Perkins MD LAB BLOOD ORDERABLES Final Result Performing Organization Address [facility] Co de Phone Number [facility] [address] [place] [address] * APTT (09/20/2024 10:33 PM EDT) aPTT 28 25 - 35 sec LAB COAGULATION METHOD 09/21/2024 12:19 AM EDT [facility] Blood Venous blood specimen / Unknown Venipuncture / Unknown 09/20/2024 10:33 PM EDT 09/20/2024 10:42 PM EDT Giorgi Perkins MD LAB BLOOD ORDERABLES Final Result Performing Organization Address [facility] Co de Phone Number [facility] [address] [place] [address] from Last 3 Months Additional Health Concerns Active Problems Noted Date Diagnosed Date 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 Yes Care Teams Primary Special Educator Relationship Specialty Start Date End Date Asad Victor MD [address] [place] [address] BISI Marshall [address] PCP - General 7/14/23
--- OUTSIDE RECORDS SUMMARY | 2024-11-27 08:07 | XMS_ITS | Encounter Summary ---
Author Organization [facility] Address [address] [place] [address] Care Team Providers Care Estate Planning Director Name Role Phone Asad Victor MD Primary Care Provider + [phone] Encounter Details Date Type Department Care Team [...] first t dino in the morning (EYE-SENIOR NETWORK SYSTEMS ENGINEER) to steady your nerves or to [...] [facility] [address] [place] [address] Oscar Appiah MD [address] [facility] [address] [place] [address] documented as of this encounter Goals Goal [...] documented as of this encounter Care Teams Estate Planning Director Relationship Specialty Start Date End Date Asad Victor MD [address] [place] [address] PCP - General 10/07/22 documented as of this encounter
--- OUTSIDE RECORDS SUMMARY | 2024-11-27 08:08 | XMS_ITS | Encounter Summary ---
Author Organization Healthcare Address [address] [id number] Care Team Providers Care Manager Patient Name Role Phone Asad Victor MD Primary Care Provider + [phone] Encounter Details Date Type Department Care Team (Late st Contact Info) Description 10/22/2024 Telephone Vascular Surgery [address] [place] [address] Alison Beltrán, OFFICE SERVICES REPRESENTATIVE, DNP [address] [facility] [address] [place] [address] Social History Tobacco Use Types Packs/Day Years [...] time in the past 12 m [facility], were you homeless or living [...] drink first t dino in the morning (EYE-CHIEF CONCIERGE) to steady your nerves or to get [...] Notes * Telephone Encounter - Alison Beltrán, OFFICE SERVICES REPRESENTATIVE, DNP - 10/22/2024 11:39 AM EDT Returned patient call. Patient s/p left common/superficial/profunda femoral thromboendarterectomy with bovine patch repair and left external iliac artery/WAITER/WAITRESS CLUB stent with Dr Gautam on 10/17/24. Patient [...] Description 11/29/2024 2:30 PM EDT Office Visit [address] [address] Oscar Appiah MD [address] [facility] [address] [place] [address] documented as of this encounter Goals Goal [...] as of this encounter Care Teams Manager Patient Relationship Specialty Start Date End Date Asad Victor MD [address] [place] [address] PCP - General 10/07/22 documented as of this encounter
--- OUTSIDE RECORDS SUMMARY | 2024-11-27 08:09 | XMS_ITS | Encounter Summary ---
Author Organization Healthcare Address [address] [place] [address] Care Team Providers Care Plastics Engineering Teacher Name Role Phone Asad Victor MD Primary Care Provider + [phone] Encounter Details Date Type Department Care Team (Late st Contact Info) Description 10/17/2024 Orders Only External Location [address] [place] [address] Provider, External Social History Tobacco Use Types [...] drink first t dino in the morning (EYE-ROUGHENER) to steady your nerves or to get rid of a hangover? 0 10/18/2021 CAGE Questionnaire Score 0 022 Utilities Answer Date Recorded In the past 12 months has th e [employer], gas, oil, or water [employer] threatened to shut off services in your [...] EDT Office Visit [facility] [address] [place] [address] Oscar Appiah MD [address] [facility] [address] [place] [address] documented as of this encounter [...] documented as of this encounter Care Teams Plastics Engineering Teacher Relationship Specialty Start Date End Date Asad Victor MD [address] [place] [address] PCP - General 10/07/22 documented as of this encounter
--- OUTSIDE RECORDS SUMMARY | 2024-11-27 08:09 | XMS_ITS | Encounter Summary ---
Author Organization [facility] Address [address] [place] [address] Care Team Providers Care Senior Customer Service Representative Name Role Phone Asad Vcitor MD Primary Care Provider + [phone] Encounter Details Date Type Department Care Team [...] drink first t dino in the morning (EYE-RAILROAD SUPERVISOR OF ENGINES) to steady your nerves or to get [...] Description 11/29/2024 2:30 PM EDT Office Visit [facility] [address] [place] [address] Oscar Appiah MD [address] [address] documented as of this encounter Goals Goal Patient Goal Type Associated Problems Recent Progress Patient-Stated? Author Autogenera louise Goal Care Plan Autogenerated Problem No JosebjEkta uagustine documented as of this encounter Visit Diagnoses Not on filedocumented in this encounter Additional Health Concerns Active Problems Noted Date Diagnosed Date Autogenerated Problem 09/23/2024 Assessment Noted Time A Body Mass Index follow-up plan has been documented for the patient 10/19/2024 11:46 AM EDT documented as of this encounter Care Teams Senior Customer Service Representative Relationship Specialty Start Date End Date Asad Victor MD [address] [place] [address] PCP - General 10/07/22 documented as of this encounter
--- OUTSIDE RECORDS SUMMARY | 2024-11-27 08:10 | XMS_ITS | Referral Summary ---
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) 11/20/2024 Travel 11/20/2024 2:15 PM EDT Clinical Support [facility] [place] [address] [place] [address] Jerry Monroe Jr., MD 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) 11/18/2024 Travel 11/18/2024 1:10 PM EDT Office Visit [facility] [place] [address] [place] [address] Jerry Monroe Jr., MD Non-pressure [...] [facility] 1 [place] [address] Jerry Monroe Jr., MD [address] [place] [address] 11/29/2024 4:00 PM EDT Clinical Support [facility] 1 [place] [address] 12/02/2024 2:15 PM EDT Clinical Support [address] [address] 12/04/2024 3:10 PM EDT Office Visit [address] [address] Jerry Monroe Jr., MD [address] [place] [address] 12/06/2024 4:15 PM EDT Clinical Support [address] [address] 12/09/2024 3:30 PM EDT Clinical Support [address] [address] 12/11/2024 2:40 PM EDT Office Visit [address] [address] Jerry Monroe Jr., MD [address] [place] [address] 12/13/2024 3:30 PM EDT Clinical Support [address] [address] 12/16/2024 3:30 PM EDT Clinical Support [facility] [address] [place] [address] 12/18/2024 3:00 PM EDT Office Visit [facility] [address] [place] [address] Jerry Monroe Jr., MD [address] [place] [address] 12/20/2024 3:30 PM EDT Clinical Support [facility] [address] [place] [address] Procedures Procedure Name Priority Date/Time Associated Diagnosis Comments WOUND TREATMENT Routine 11/22/2024 5:14 PM EDT 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 [...] provider verified the correct patient, procedure, equipment, family support worker, and site/side marked as required. [...] to treatment: procedure was tolerated well Jerry Mornoe Jr., MD PROCEDURE/MINOR SURGICAL ORDERABLES Final Result from Last 3 Months Insurance [facility] ADV DUAL COMPLETE MEDICAID OF [place]
--- OUTSIDE RECORDS SUMMARY | 2024-11-27 08:10 | XMS_ITS | Clinical Summary ---
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) 11/20/2024 Travel 11/18/2024 1:10 PM EDT Office Visit [facility] [place] [address] [place] [address] Jerry Monroe Jr., MD Non-pressure chronic ulcer [...] 11/27/2024 2:20 PM EDT [facility] Visit [facility] [address] [place] [address] Jerry Monroe Jr., MD [address] [place] [address] 11/29/2024 4:00 PM EDT Clinical Support [facility] 1 [place] [address] 12/02/2024 2:15 PM EDT Clinical Support [address] [address] 12/04/2024 3:10 PM EDT Office Visit [address] [address] Jerry Monroe Jr., MD [address] [place] [address] 12/06/2024 4:15 PM EDT Clinical Support [address] [address] 12/09/2024 3:30 PM EDT Clinical Support [address] [address] 12/11/2024 2:40 PM EDT Office Visit [address] [address] Jerry Monroe Jr., MD [address] [place] [address] 12/13/2024 3:30 PM EDT Clinical Support [address] [address] 12/16/2024 3:30 PM EDT Clinical Support [facility] [address] [place] [address] 12/18/2024 3:00 PM EDT Office Visit [facility] [address] [place] [address] Jerry Monroe Jr., MD [address] [place] [address] 12/20/2024 3:30 PM EDT Clinical Support [facility] [address] [place] [address] Health Maintenance Due Date Last [...] other sites with necrosis of muscle (HCC) [place] DEBRIDEMENT MUSCLE &/FASCIA EA ADDL 20 [...] NURSING PATHWAYS ORDERABL ES Final Result * [place] DEBRIDEMENT MUSCLE &/FASCIA [...] provider verified the correct patient, procedure, equipment, it support specialist, and site/side marked as required. [...] provider verified the correct patient, procedure, equipment, it support specialist, and site/side marked as required. [...] Final Result from Last 3 Months Insurance [facility] ADV DUAL COMPLETE MEDICAID OF [place]
--- OUTSIDE RECORDS SUMMARY | 2024-11-27 08:10 | XMS_ITS | Encounter Summary ---
Author Organization [employer] ([place], [place], [place], [place]) Address [address] [place] [address] Care Team Providers Care Project Management Engineer Name Role Phone Unavailable Primary Care [...] Description 11/27/2024 2:20 PM EDT Office Visit [facility] [place] [address] [place] [address] Jerry Monroe Jr., MD [address] [place] [address] 11/29/2024 4:00 PM EDT Clinical Support [facility] [address] [address] 12/02/2024 2:15 PM EDT Clinical Support [facility] [place] [address] [place] [address] 12/04/2024 3:10 PM EDT Office Visit [facility] 1 [place] [address] Jerry Monroe Jr., MD [address] [place] [address] 12/06/2024 4:15 PM EDT Clinical Support [facility] 1 [place] [address] 12/09/2024 3:30 PM EDT Clinical Support [facility] [place] [address] [place] [address] 12/11/2024 2:40 PM EDT Office Visit [facility] 1 [place] [address] Jerry Monroe Jr., MD [address] [place] [address] 12/13/2024 3:30 PM EDT Clinical Support [facility] 1 [place] [address] 12/16/2024 3:30 PM EDT Clinical Support [facility] 1 [place] [address] 12/18/2024 3:00 PM EDT Office Visit [facility] 1 [place] [address] Jerry Monroe Jr., MD [address] [place] [address] 12/20/2024 3:30 PM EDT Clinical Support [facility] 1 [place] [address] documented as of this encounter Visit Diagnoses Not on filedocumented in this encounter
--- OUTSIDE RECORDS SUMMARY | 2024-11-27 08:12 | XMS_ITS | Encounter Summary ---
Author Organization [facility] Address [address] [place] [address] Care Team Providers Care Municipal Services Manager Name Role Phone Asad Victor MD Primary Care Provider + [phone] Encounter Details Date Type Department Care Team [...] drink first t dino in the morning (EYE-RN FIRST ASSIST) to steady your nerves or to get [...] 1 Month) No 025 2:00 PM EDT [place], Brigitte E, RN 2. Non-Specific Active Suici marcelle Thoughts (Past 1 Month) No 11/06/2024 2:00 PM EDT Brigitte Castellon RN 6. Suicidal Behavior (Lifetime) No 2:00 PM EDT Brigitte Castellon RN documented as of this encounter Plan of Treatment Upcoming Encounters Date Type Department Care Team (Late st Contact Info) Description 11/29/2024 2:30 PM EDT Office Visit [facility] [address] [place] [address] Oscar Appiah MD [address] [facility] [address] [place] [address] documented as of this encounter [...] documented as of this encounter Care Teams Municipal Services Manager Relationship Specialty Start Date End Date Asad Victor MD [address] [place] [address] PCP - General 10/07/22 documented as of this encounter
--- OUTSIDE RECORDS SUMMARY | 2024-11-27 08:12 | XMS_ITS | Encounter Summary ---
Author Organization Healthcare Address [address] [place] [address] Care Team Providers Care Soloist Dancer Name Role Phone Asad Victor MD Primary Care Provider + [phone] Encounter Details Date Type Department Care Team (Late st Contact Info) Description 11/05/2024 Orders Only External Location [address] [place] [address] Provider, External Social History Tobacco Use Types [...] drink first t dino in the morning (EYE-HOSPITAL CLEANER) to steady your nerves or to get rid of a hangover? 0 10/18/2021 CAGE Questionnaire Score 0 022 Utilities Answer Date Recorded In the past 12 months has th e [employer], gas, oil, or water company threatened to [...] to be (Past 1 Month) No 025 8:00 PM EDT Eber Hanson RN 2. Non-Specific Active Suici marcelle Thoughts (Past 1 Month) No 11/10/2024 8:00 PM EDT Myke Hanson RN 6. Suicidal Behavior (Lifetime) No 8:00 PM EDT Eber Hanson RN documented as of this encounter Plan of Treatment Upcoming Encounters Date Type Department Care Team (Late st Contact Info) Description 11/29/2024 2:30 PM EDT Office Visit [facility] [address] [place] [address] Oscar Appiah MD [address] [facility] [address] [place] [address] documented as of this encounter [...] documented as of this encounter Care Teams Soloist Dancer Relationship Specialty Start Date End Date Asad Victor MD [address] [place] [address] PCP - General 10/07/22 documented as of this encounter
[2024-11-27] MEDS: 0.9 % SODIUM CHLORIDE 50 ML 100 ML IV (08:13)
[2024-11-27 08:14] VITALS: BP 127/46; PULSE 60; RESP 18; O2SAT 97
[2024-11-27] MEDS: SODIUM CHLORIDE 0.9% IV (08:14)
[2024-11-27] MEDS: MICAFUNGIN SODIUM IV (08:14)
--- OUTSIDE RECORDS SUMMARY | 2024-11-27 08:14 | XMS_ITS | Encounter Summary ---
Author Organization Healthcare Address [address] [place] [address] Care Team Providers Care Derrick Worker Name Role Phone Asad Victor MD Primary Care Provider + [phone] Encounter Details Date Type Department Care Team (Late st Contact Info) Description 11/15/2024 Clinical Support [facility] [address] [place] [address] Charly Orlando, PharmD [address] [place] [address] [address] [place] [address] Social History Tobacco Use Types [...] in the past 12 m [facility], were you homeless [...] drink first t dino in the morning (EYE-FUR GRADER) to steady your nerves or to get rid of a hangover? 0 10/18/2021 CAGE Questionnaire Score 0 022 Utilities Answer Date Recorded In the past 12 months has th e [employer], gas, oil, or water company threatened to [...] Office Visit [facility] [address] [place] [address] Oscar Appiah MD [address] [facility] [address] [place] [address] documented as of this encounter [...] documented as of this encounter Care Teams Derrick Worker Relationship Specialty Start Date End Date Asad Victor MD [address] [place] [address] PCP - General 10/07/22 documented as of this encounter
--- OUTSIDE RECORDS SUMMARY | 2024-11-27 08:14 | XMS_ITS | Encounter Summary ---
Author Organization [employer] ([place], [place], [place], [place]) Address [address] [place] [address] Care Team Providers Care Mri Tech Name Role Phone Unavailable Primary Care Provider [...] Description 11/27/2024 2:20 PM EDT Office Visit [facility] [place] [address] [place] [address] Jerry Monroe Jr., MD [address] [place] [address] 11/29/2024 4:00 PM EDT Clinical Support [facility] [address] [address] 12/02/2024 2:15 PM EDT Clinical Support [facility] [place] [address] [place] [address] 12/04/2024 3:10 PM EDT Office Visit [facility] 1 [place] [address] Jerry Monroe Jr., MD [address] [place] [address] 12/06/2024 4:15 PM EDT Clinical Support [facility] 1 [place] [address] 12/09/2024 3:30 PM EDT Clinical Support [facility] [place] [address] [place] [address] 12/11/2024 2:40 PM EDT Office Visit [facility] 1 [place] [address] Jerry Monroe Jr., MD [address] [place] [address] 12/13/2024 3:30 PM EDT Clinical Support [facility] 1 [place] [address] 12/16/2024 3:30 PM EDT Clinical Support [facility] 1 [place] [address] 12/18/2024 3:00 PM EDT Office Visit [facility] 1 [place] [address] Jerry Monroe Jr., MD [address] [place] [address] 12/20/2024 3:30 PM EDT Clinical Support [facility] 1 [place] [address] documented as of this encounter Visit Diagnoses Not on filedocumented in this encounter
[2024-11-27] MEDS: ERTAPENEM SODIUM 1 GM in 0.9 % SODIUM CHLORIDE 50 ML IV (09:17)
[2024-11-27 10:00] VITALS: BP 129/49; PULSE 61; RESP 18; O2SAT 96
== END 2024-11-27 10:00 | disposition home or self-care (01) ==
LOC: INF 08:00
PROVIDERS: PCP Family Medicine
DX: I47.20 Ventricular tachycardia, unspecified (principal); I25.810 Atherosclerosis of coronary artery bypass graft(s) without angina pectoris
CPT/HCPCS: 96365; 96367; J1335; J2248

== ENCOUNTER 2024-11-28 08:09 | Outpatient (CLI) | payer MEDICARE, OTHER, SELFPAY ==
--- OUTSIDE RECORDS SUMMARY | 2024-10-11 10:15 | XMS_ITS | Encounter Summary ---
Author Organization [facility] Address [address] [place] [address] Care Team Providers Care Bush And Vine Farmer Fruit Crops Name Role Phone Asad Victor MD Primary Care Provider + [phone] Encounter Details Date Type Department Care Team (Latest Contact Info) Description 10/11/2024 10:15 AM EDT Pre-Admission Testing [facility] Pre-op Clinic [address]st [place] [phone] Preop testing (Primary Dx) Anesthesia Record Procedure [...] Hand; Site Prep: Chlorhexidine ; Local Anesth: [place]; Technique: Anatomical landmarks; Inserted by: CHRISTIAN Acuna; [...] G; Orientation: Right; Location: Axillary; Inserted by: PYRIDINE RECOVERY OPERATOR; Securement: Sutured; Patient Tolerance: Tolerated well; [...] drink first t dino in the morning (EYE-CLIENT REPRESENTATIVE) to steady your nerves or to get [...] T2DM, HLD, HTN, RLS who presented to [facility] with a large left common [...] note 09/25/24 (media) + CAD s/p multiple CA's and 3V CABG 02/2019, 2 stents prior to CABG Atrial Fibrillation with RVR s/p CABG + carotid artery disease s/p R CEA 2016 + 3rd degree AV block PICKLE PROCESSOR-P placed 08/2023 for Wenkeback with 11 sec pause + HLD + HTN - controlled + PAD 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 S/P intravascular lithotripsy of left common and external iliac artery with 2 continuous balloon mounted bare metal stents 09/12/24 on Xarelto and ASA + WILHELM occ, low energy for > year - had work-up recently in [place] (will get records) + peripheral edema LLE [...] ENDARTERECTOMY N/A 2017 Endarterectomy Carotid Artery from [facility] CORONARY ANGIOPLASTY Left Coronary Angiography With Concomitant Left Heart Catheterization from [facility] CORONARY ARTERY BYPASS GRAFT N/A 2018 3V ELBOW SURGERY Right OTHER SURGICAL HISTORY N/A Reported Prior Surgical / Procedural History from [facility] [5] No Known Allergies [6] Current Outpatient [...] Description 11/29/2024 2:30 PM EDT Office Visit [facility] [address] [facility] [place] [address] Oscar Appiah MD [address] [facility] [address] [place] [address] documented as of this encounter [...] Modality Other Narrative 10/17/2024 9:50 AM EDT [facility]: Pre-operative CIED Report Assessment and Sara-Procedural Reommendations: Name: Mono Bobby Date: 10/17/2024 : 1960 Age: 64 y.o. Patient has a Side Seam Tender: Berger PICKLE PROCESSOR-PM Remaining battery longevity adequate. Lead integrity test [...] recommendations. Supporting reports can be found in [employer] media file. Emelina DOSHI CV IMPLANTABLE CARDIAC [...] documented as of this encounter Care Teams Bush And Vine Farmer Fruit Crops Relationship Specialty Start Date End Date Asad Victor MD [address] [place] [address] PCP - General 10/07/22 documented as of this encounter
--- OUTSIDE RECORDS SUMMARY | 2024-10-16 14:45 | XMS_ITS | Encounter Summary ---
Author Organization Healthcare Address [address] [place] [address] Care Team Providers Care Director Of Land Name Role Phone Asad Victor MD Primary Care Provider + [phone] Encounter Details Date Type Department Care Team (Latest Contact Info) Description 10/16/2024 2:45 PM EDT - 10/16/2024 11:59 PM EDT Hospital Encounter Cardiac Imaging [address] [place] [address] Discharge Disposition: Home or Self Care Social [...] drink first t dino in the morning (EYE-LINING LAYER) to steady your nerves or to get [...] Description 11/29/2024 2:30 PM EDT Office Visit [facility] [address] [place] [address] Oscar Appiah MD [address] [place] [address] [address] [place] [address] documented as of this encounter [...] Modality Other Narrative 10/17/2024 9:50 AM EDT [facility]: Pre-operative CIED Report Assessment and Sara-Procedural Reommendations: Name: Mono Bobby Date: 10/17/2024 : 1960 Age: 64 y.o. Patient has a Immunochemist: Berger COMMISSIONING SPECIALIST-PM Remaining battery longevity adequate. Lead integrity [...] recommendations. Supporting reports can be found in [employer] file. us Emelina DOSHI CV IMPLANTABLE CARDIAC [...] of this encounter Care Teams Director Of Land Relationship Specialty Start Date End Date Asad Victor MD [address] [place] [address] PCP - General 10/07/22 documented as of this encounter
--- OUTSIDE RECORDS SUMMARY | 2024-10-17 06:21 | XMS_ITS | Encounter Summary ---
Author Organization [facility] Address [address] [id number] Care Team Providers Care Market Analysis Director Name Role Phone Asad Victor MD Primary Care Provider [phone] Reason for Referral * Imaging (Routine) - Authorized Specialty Diagnoses / Procedures Referred By Susan t Referred To Contact Cardiology Diagnoses Critical limb ischemia of left lower extremity Pseudoaneurysm of left femoral artery (CMS/HCC) Procedures VAS US Arterial Duplex Lower Extremity Unilateral Left Terrell Gautam MD [address] [address] Phone: tel: fax: Referral ID Status Reason Start Date Expiration Date Visits Requested Visits Authorized [id number] Authorized Perform Procedure 10/19/2024 04/20/2026 1 1 * Imaging (Routine) - Authorized Specialty Diagnoses / Procedures Referred By Contac t Referred To Contact Cardiology Diagnoses Critical limb ischemia of left lower extremity Pseudoaneurysm of left femoral artery (CMS/HCC) Procedures VAS Ankle Brachial Index - Segmental Terrell Gautam MD [id number] [place] [address] Phone: tel: fax: Referral ID Status Reason Start Date Expiration Date Visits Requested Visits Authorized [id number] Authorized Perform Procedure 10/19/2024 04/20/2026 1 1 * Consultation (Routine) - Authorized Specialty Diagnoses / Procedures Referred By Contact Referred To Contact Vascular Surgery / [facility] Diagnoses Critical limb ischemia of left lower extremity Pseudoaneurysm of left femoral artery (CMS/HCC) Terrell Gautam MD [address] [place] [address] Phone: tel:[phone] fax:[phone] [facility] [address] [place] [address] 5th Floor [address] [place] [address] Phone: tel: fax: Referral ID Status Reason Start Date Expiration Date Visits Requested Visits Authorized [id number] Authorized Specialty Services Required 10/19/2024 04/20/2026 [address] Gautam, with SIL, arterial duplex Reason for Visit * Auth/Cert (Routine) Specialty Diagnoses / Procedures Referred By Susan t Referred To Contact Diagnoses Critical limb ischemia of left lower extremity Critical limb ischemia of left lower extremity [I70.222] Procedures ND VEIN BYPASS GRAFT,FEM-POP CREATION, BYPASS, ARTERIAL, FEMORAL TO POPLITEAL Terrell Gautam MD [address] [place] [phone] Phone: tel: fax: P[facility] A OPERATING ROOM [address] [place] [address] Phone: tel: Referral ID Status Reason Start Date Expiration Date Visits Re quested Visits Authorized [id number] 1 1 Encounter Details Date Type Department Care Team (Latest Contact Info) Description 10/17/2024 6:21 AM EDT - 10/19/2024 12:39 PM EDT Hospital Encounter [facility] H Inpatient [address] [place] [phone] Terrell Gautam MD [address] [place] [phone] Pseudoaneurysm of left femoral artery (CMS/HCC) [...] any time in the past 12 m [facility], were you homeless or living in a senior care (including now)? 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 0 10/18/2021 CAGE Questionnaire Score 0 022 Utilities Answer Date Recorded In the past 12 months has th [email or web address], gas, oil, or water [employer] threatened to shut off services in your [...] provided Taken 10/17/20242107 by Jourdan Grimes II convex grinder Review/Management: medications reviewed Problem: Skin Injury Risk [...] Ongoing, Progressing Intervention: Promote Activity and Functional Ingham Flowsheets (Taken 10/19/2024 1048) Self-Care Promotion: BADL personal objects within reach meal set-up provided * Yuni Ramires - Keyla Chow - 10/19/2024 11:45 AM EDT Images from the original note were not included. [id number] After Peripheral Artery Bypass Surgery: In the [...] home. Last Reviewed Date: 2023 00:00:00 ?? [id number] [employer] All rights reserved. This information is not intended as a substitute for professional medical care. Always follow your healthcare professional's instructions. * Progress Notes - Emelina Friend - 10/19/2024 11:44 AM EDT Case Management Adult Progress Note Bev Bobby 64 y.o. male CSN: [id number] Admission: 10/17/2024 6:21 AM Primary Problem: Critical [...] if any other needs arise. Emelina Friend INFECTIOUS DISEASE PHYSICIAN, LABORER STEEL HANDLING Social Work Case Management * Yuni OviJOSE MANUEL Chow Keyla - 10/19/2024 11:44 AM EDT Images from the original note were not included. [id number] Peripheral Artery Disease (PAD) Peripheral artery disease [...] cause. Last Reviewed Date: 2024 00:00:00 ?? [id number] [employer] All rights reserved. This information is not intended as a substitute for professional medical care. Always follow your healthcare professional's instructions. * Yuni DiorNAVYA - Keyla Chow - 10/19/2024 11:44 AM EDT Images from the original note were not included. 36001 Leg Artery Emergencies: Critical Limb Ischemia (CLI) [...] appointments. Last Reviewed Date: 2023 00:00:00 ?? 8618-4358 [employer] All rights reserved. This information is not intended as a substitute for professional medical care. Always follow your healthcare professional's instructions. * Discharge Summary - Dandy Baltazar MD - 10/19/2024 11:31 AM EDT Hospitalization Admit Date/Time: 10/17/2024 6:21 AM Admitting Attending: Terrell Gautam Discharge Date: 10/19/24 Discharge Attending Physician: Nirmal Cueto MD PCP name and Address: Asad Victor MD (Inactive) [address] [place] [address] / [facility] [address] Referring provider name and address: Timothy Marques PA [address] [place] [address] Chief Concern, Brief History of Present Illness, and Hospital Course Bev Bobby is an 64 y.o. 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 He [...] Your Medications These medications were sent to [facility] [place], [place] - [address], [facility] [address] acetaminophen 500 MG tablet clopidogrel 75 MG [...] of water. Outpatient Follow-Up Follow up with [facility] Associated diagnoses: Balloon like swelling in an artery of the leg Critical limb ischemia of left lower extremity [address] [facility] 5th Floor Wing [address], [address] 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 He [...] provided Taken 10/17/20242107 by Jourdan Grimes II, convex grinder Review/Management: medications reviewed Problem: Skin Injury Risk [...] Ongoing, Progressing Intervention: Promote Activity and Functional Ingham Flowsheets (Taken 10/19/2024 1048) Self-Care Promotion: BADL [...] evaluation. PARTICIPANTS IN CARE Visitors Present No Special Machine Stitcher (if applicable) PRESENTATION Oxygen Oxygen Therapy: None [...] shower chair Home Layout One level (0 LILLIAN) Bathroom Layout Bathroom: Tub/Shower: Tub/Shower combo, Shower chair, Grab bars Bathroom: Toilet: Standard, Grab bars Bathroom: Accessibility: Accessible via walker (rollator) Additional Comments Patient reported that he has a friend that can provide assistance as/if needed at time of d/c. PRIOR LEVEL OF FUNCTION Assist at Home No assist required prior to admission Level of Mobility Ambulatory- household only Mobility Ingham Independent gait with device (rollator) History of [...] numbness in rodney) BED MOBILITY Level of Ingham Physical/Non- physical Assist Adaptive Equipment Utilized Rolling/ Turning Scooting/ Bridging Modified independence (anteriorly to EOB) Bed rails Supine to Sit Modified Ingham (to the right) (HOB flat) Bed rails Sit to Supine Interventions HOB flat to simulate home environment TRANSFERS Level of [place] Physical/Non- physical Assist Adaptive Equipment Utilized Sit [...] stable surfaces during transitions. AMBULATION Level of Ingham Distance Adaptive Equipment Utilized Ambulation Standby assist, [...] Posture: Forward head, Rounded shoulders Level of Ingham Balance Support Interventions Static Sit Independent Right [...] 3-5 steps with a railing?: A little [facility] 6-Clicks Mobility Assessment Total : 22 [...] evaluation/session. Participants in Care Family/Caregiver Present: No Special Machine Stitcher: Not Applicable Presentation Oxygen Therapy: None (Room [...] shower chair Home Layout: One level (0 LILLIAN) Bathroom: Tub/Shower: Tub/Shower combo, Shower chair, Grab bars Bathroom: Toilet: Standard, Grab bars Bathroom: Accessibility: Accessible via walker (rollator) Home Living Comments: Patient reported that he has a friend that can provide assistance as/if needed at time of d/c. Prior Level of Function Receives Help From: No assist required prior to admission Level of Mobility: Ambulatory- household only Mobility Ingham: Independent gait with device (rollator) History of [...] Mobility Bed Mobility Exam: Scooting/Bridging Level of Ingham: Modified independence (anteriorly to EOB) Assistive Device: Bed rails Bed Mobility Exam: Supine to Sit Level of Ingham: Modified Ing[place] (to the right) Physical/Nonphysical Assist: (HOB flat) Assistive Device: Bed rails Transfers Transfer Exam: Sit to stand Level of Ingham: Stand-by assist Physical/Nonphysical Assist: Supervision, Verbal Cues, Minimal cues Assistive Device: Walker, rolling Transfer Exam: Stand to Sit Level of Ingham: Stand-by assist Physical/Nonphysical Assist: Supervision, Verbal Cues, [...] 6 Click - Daily Activities Score: 23/24 [facility] Scoring Interpretation: Scores greater than 20.5 [...] Note Bev Bobby 64 y.o. male CSN: [id number] Admission: 10/17/2024 6:21 AM Primary Problem: Critical limb ischemia of left lower extremity [employer] reviewed chart and spoke with patient to complete this Initial Case Management Assessment. PCP: Asad Victor MD (Inactive) - Dr. Palomo Preferred pharmacy is [facility] Emergency Contact: Extended Emergency Contact Information Primary Emergency Contact: Patti Hill Relation: Sister Special Machine Stitcher needed? No Insurance: Primary Visit Coverage Payer Plan Sponsor Code Group Number Group Name [facility] MEDICARE [facility] MEDICARE REPLACEMENT [id number] Primary Visit Coverage Subscriber Subscriber ID Subscriber Name Subscriber N Subscriber Address [id number] BEV BOBBY [id number] [place] [address] Secondary Visit Coverage Payer Plan Sponsor Code Group Number Group Name [facility] MED[facility] Secondary Visit Coverage Subscriber Subscriber ID Subscriber Name Subscriber N Subscriber Address [id number] BEV BOBBY [id number] [place] [address] Patient information: Primary Caregiver: Self Daily Living Activities: Functional Status: Independent Living Arrangements: Alone Type of Residence: Private residence, Single Level [address] [place] [address] Current DME: Equipment Currently Used at Home: walker, rollator Income Information: Income Source: Retired Income/Expense Information: Income meets expenses Current Resources Utilized: Food [place] Housing Circumstances-Z Codes: Housing Circumstances (select all [...] Dialysis Services: None. Living Will/Advance Directive/Power of Dewaxer /Guardian: Denied. Additional Comments: Patient is not medically ready for discharge. SW will continue to follow. Mariia Macedo LABORER [employer]LING * Care Plan - Emilia Alonso RN [...] from the original note were not included. [facility] Department of Surgery Division of Vascular [...] Agree with above assessment and evaluation from resident/GOODYEAR WELTER. * Op Note - Terrell Gautam MD - 10/17/2024 8:52 AM EDT Operative Note Date: 10/17/24 Location: [facility] Name: Bev Bobby, : 1960, Diagnoses: Pre-op Diagnosis Critical limb ischemia of left lower extremity Common femoral artery pseudoaneurysm Post-op Diagnosis Critical limb ischemia of left lower extremity Common femoral artery pseudoaneurysm Procedure(s): Left common/superficial/profunda femoral thromboendarterectomy with bovine patch repair Left external iliac artery/SERVICE PARTS DRIVER stent Attending Surgeon(s): * Terrell Gautam - Primary Coat Operator(s): * Luna Beckett MD - Resident - [...] Necessity Reasons Recent surgery contiguous with urinary tract/PARTS DEPARTMENT MANAGER/colorectal 10/17/24 190 Output (mL) 50 mL 10/18/24 08 Implants Type Name Action Serial No. VASCUGUARD 8 X 8 - [id number] Implanted STENT ENDOPROSTHESIS VIABAHN 9FR [id number] - [id number] Implanted [id number] Specimen: Specimens ID Source Frozen? 1 Other [...] and distal control. We then proceeded with fhcdi-ggt-ihrh exposure of the popliteal artery. A medial [...] balloon dilated thestent with a 9 mm [place]. We closed the arteriotomy with a single [...] 10/17/2024 8:52 AM EDT Date: 10/17/24 Location: [facility] [facility] Name: Bev Perez Kanu, : 1960, Diagnoses: Pre-op Diagnosis Critical limb ischemia of left lower extremity Common femoral artery pseudoaneurysm Post-op Diagnosis Critical limb ischemia of left lower extremity Common femoral artery pseudoaneurysm Procedure(s): Left common/superficial/profunda femoral thromboendarterectomy with bovine patch repair Left external iliac artery/SERVICE PARTS DRIVER stent Attending Surgeon(s): * Terrell Gautam - Primary Coat Operator(s): * Luna Beckett MD - Resident - Assisting * Dandy Baltazar MD - Fellow Anesthesia: General ASA: III Blood Administration: Blood Product Administration History None Estimated Blood Loss: 300 mL Drains: Urethral Catheter Temperature probe 16 Fr. (Active) Implants Type Name Action Serial No. VASCUGUARD 8 X 8 - [id number] Implanted STENT ENDOPROSTHESIS VIABAHN 9FR [id number] - [id number] Implanted [id number] Specimen: Specimens ID Source Frozen? 1 Other [...] issues. 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 He previouslyunderwent thrombin injection. He reports pain in his calves. He presents today for scheduled left lower extremity femoral to ahodm-ejb-cnqd popliteal bypass. Planned likely use PTFE. He [...] 16. Results Review {Vanishing Link Review Results :[id number] I have reviewed the latest lab and imaging results. Assessment & Plan Critical limb ischemia of left lower extremity Proceed with scheduled surgery left lower extremity femoral to dowch-niz-rela popliteal artery bypass graft. Extensive discussion had [...] Description 11/29/2024 2:30 PM EDT Office Visit [facility] [address] [place] [phone] [place] [address] [place] [phone] Pending Results Name Type Priority Associated [...] lower extremity Pseudoaneurysm of left femoral artery ([facility]) Expected: 11/19/2024, Expires: 04/22/2026 documented as of this encounter Goals Goal Patient Goal Type Associated Problems Recent Progress Patient-Stated? Author Autosridhar gil Goal Care Plan Autogenerated Problem No Ekta [...] - 99 mg/dL 10/19/2024 11:42 AM EDT [facility] Comment:Accuracy of a glucos e result [...] Comment 10/19/2024 11:42 AM EDT HEALTHCARE LAB Bottom Cager ID Job Andrew 10/20/19 11:42 AM EDT HEALTHCARE LAB Device ID [id number] 10/19/2024 11:42 AM EDT HEALTHCARE LAB Specimen Type POC Capillary 10/19/2024 11:42 AM EDT [facility] Blood Capillary blood specimen / Unknown 10/19/2024 11:40 AM EDT 10/19/2024 11:42 AM EDT us Terrell Gautam MD LAB POINT OF CARE TE ST DOCKED DEVICE UNSOLICITED RESULTS Final Result Performing Organization Address [facility] Co de Phone Number [facility] [address] [place] [address] * (ABNORMAL) Protime-INR (10/19/2024 8:25 AM EDT) Prothrombin Time 17.5(H) 12.0 - 14.3 sec LAB COAGULATION METHOD 10/19/2024 9:25 AM EDT [facility] INR 1.4(H) 0.9 - 1.1 LAB COAGULATION METHOD 10/19/2024 9:25 AM EDT [facility] Blood Venous blood specimen / Unknown Venipuncture / Unknown 10/19/2024 8:25 AM EDT 10/19/2024 8:43 AM EDT Narrative [facility] - 10/19/2024 9:25 AM EDT OPTIMAL INR RANGES FOR PATIENT ON ORAL ANTICOAGULANT THERAPY Prevention of venous thromboembolism INR 2.0 to 3.0 In patients with heart disease: Atrial fibrillation INR 2.0 to 3.0 Valvular heart disease INR 2.0 to 3.0 Tissue heart valves INR 2.0 to 3.0 Mechanical prosthetic valves INR 2.5 to 3.5 Prevention of recurrent PR INR 2.5 to 3.5 us Nirmal Cueto MD LAB BLOOD ORDERABLES Final Result [facility] [address] [place] [address] * (ABNORMAL) Phosphorus (10/19/2024 8:25 AM EDT) Phosphorus, Plasma 2.2(L) 2.5 - 4.5 mg/dL 10/19/2024 9:12 AM EDT [facility] Blood Venous blood specimen / Unknown Venipuncture / Unknown 10/19/2024 8:25 AM EDT 10/19/2024 8:43 AM EDT Nirmal Cueto MD LAB BLOOD ORDERABLES Final Result Performing Organization Address City/[facility]/ZIP Co de Phone Number [facility] [address] [place] [address] * Magnesium (10/19/2024 8:25 AM EDT) Magnesium, Plasma 2.1 1.9 - 2.4 mg/dL 10/19/2024 9:12 AM EDT [facility] Blood Venous blood specimen / Unknown Venipuncture / Unknown 10/19/2024 8:25 AM EDT 10/19/2024 8:43 AM EDT Nirmal Cueto MD LAB BLOOD ORDERABLES Final Result Performing Organization Address City/[facility]/ZIP Co de Phone Number [facility] [address] [place] [address] * (ABNORMAL) Basic metabolic panel (10/19/2024 8:25 AM EDT) Glucose, Plasma 191(H) 74 - 99 mg/dL 10/19/2024 9:12 AM EDT [facility] BUN, Plasma 18 8 - 23 mg/dL 10/19/2024 9:12 AM EDT [facility] Creatinine, Plasma 0.76 0.70 - 1.20 mg/dL 10/19/2024 9:12 AM EDT [facility] BUN/Creatinine Ratio 24 10/19/2024 9:12 AM EDT [facility] Sodium, Plasma 135(L) 136 - 145 mmol/L 10/19/2024 9:12 AM EDT [facility] Potassium, Plasma 4.1 3.6 - 4.9 mmol/L 10/19/2024 9:12 AM EDT [facility] Chloride, Plasma 104 97 - 107 mmol/L 10/19/2024 9:12 AM EDT [facility] CO2, Plasma 22 22 - 29 mmol/L 10/19/2024 9:12 AM EDT [facility] Anion Gap 9 6 - 16 mmol/L 10/19/2024 9:12 AM EDT [facility] Total Calcium, Plasma 8.4(L) 8.9 - 10.2 mg/dL 10/19/2024 9:12 AM EDT [facility] eGFRcr 99.7 mL/min/1.7 3m*2 10/19/2024 9:12 AM EDT [facility] Comment:Reported eGFRcr in m L/min/1.73m2 is based the CKD-EPI 2020 equation that does not use a race coefficient. Blood Venous blood specimen / Unknown Venipuncture / Unknown 10/19/2024 8:25 AM EDT 10/19/2024 8:43 AM EDT us Nirmal Cueto MD LAB BLOOD ORDERABLES Final Result [facility] [address] [place] [address] * (ABNORMAL) CBC W/O Differential (10/19/2024 8:25 AM EDT) WBC Count 14.10(H) 3.70 - 10.30 10*3/uL LAB HEMATOLOGY METHOD 10/19/2024 8:52 AM EDT [facility] RBC Count 2.61(L) 4.60 - 6.10 10*6/uL LAB HEMATOLOGY METHOD 10/19/2024 8:52 AM EDT [facility] HGB 8.0(L) 13.7 - 17.5 g/dL LAB HEMATOLOGY METHOD 10/19/2024 8:52 AM EDT [facility] HCT 24.3(L) 40.0 - 51.0 % LAB HEMATOLOGY METHOD 10/19/2024 8:52 AM EDT [facility] Platelet Count 318 155 - 369 10*3/uL LAB HEMATOLOGY METHOD 10/19/2024 8:52 AM EDT [facility] MCV 93 79 - 98 fL LAB HEMATOLOGY METHOD 10/19/2024 8:52 AM EDT [facility] MCH 30.7 26.0 - 32.0 pg LAB HEMATOLOGY METHOD 10/19/2024 8:52 AM EDT [facility] MCHC 32.9 30.7 - 35.5 g/dL LAB HEMATOLOGY METHOD 10/19/2024 8:52 AM EDT [facility] RDW 13.4 11.5 - 14.5 % LAB HEMATOLOGY METHOD 10/19/2024 8:52 AM EDT [facility] MPV 9.6 8.8 - 12.5 fL LAB HEMATOLOGY METHOD 10/19/2024 8:52 AM EDT [facility] nRBC 0.0 <=0.0 per 100 WBCs LAB HEMATOLOGY METHOD 10/19/2024 8:52 AM EDT [facility] Blood Venous blood specimen / Unknown Venipuncture / Unknown 10/19/2024 8:25 AM EDT 10/19/2024 8:44 AM EDT Nirmal Cueto MD LAB BLOOD ORDERABLES Final Result [facility] [address] [place] [address] * (ABNORMAL) POCT glucose meter (10/19/2024 7:35 AM EDT) POCT Glucose 187(H) 74 - 99 mg/dL 10/19/2024 7:37 AM EDT [facility] Comment:Accuracy of a [...] Comment 10/19/2024 7:37 AM EDT [facility]ARE [facility] Bottom Cager ID Kamran Job 10/20/19 7:37 AM EDT HEALTHCARE LAB Device ID [id number] 10/19/2024 7:37 AM EDT [facility]ALTH[facility]ARE LAB Specimen Type POC Capillary 10/19/2024 7:37 AM EDT [facility] Blood Capillary blood specimen / Unknown 10/19/2024 7:35 AM EDT 10/19/2024 7:37 AM EDT Terrell Gautam MD LAB POINT OF CARE TE ST DOCKED DEVICE UNSOLICITED RESULTS Final Result Performing Organization Address City/[facility] Co de Phone Number [facility] [address] [place] [address] * (ABNORMAL) POCT glucose meter (10/18/2024 7:22 PM EDT) POCT Glucose 178(H) 74 - 99 [...] 10/18/2024 7:24 PM EDT [facility] Bottom Cager ID Mahesh Aldana 10/18/2024 7:24 PM EDT [facility] Device ID [id number] 10/18/2024 7:24 PM EDT [facility] Specimen Type POC Capillary 10/18/2024 7:24 PM EDT [facility] Blood Capillary blood specimen / Unknown 10/18/2024 7:22 PM EDT 10/18/2024 7:24 PM EDT Terrell Gautam MD LAB POINT OF CARE TE ST DOCKED DEVICE UNSOLICITED RESULTS Final Result Performing Organization Address City/[facility]/ZIP Co de Phone Number [facility] [address] [place] [address] * (ABNORMAL) POCT glucose meter (10/18/2024 6:07 [...] Comment 10/18/2024 6:09 PM EDT [facility]ALTH[facility]ARE LAB Bottom Cager ID David Parks 10/18/2024 6:09 PM EDT HEALTHCARE LAB Device ID [id number] 10/18/2024 6:09 PM EDT [facility]ALTH[facility]ARE LAB Specimen Type POC Capillary 10/18/2024 6:09 PM EDT [facility]ARE [facility] Blood Capillary blood specimen / Unknown 10/18/2024 6:07 PM EDT 10/18/2024 6:09 PM EDT us Terrell Gautam MD LAB POINT OF CARE TE ST DOCKED DEVICE UNSOLICITED RESULTS Final Result Performing Organization Address City/State/[facility] Co de Phone Number [facility]ARE [facility] [address] [place] [address] * (ABNORMAL) POCT glucose meter (10/18/2024 11:56 AM EDT) [facility] Signature POCT Glucose 233(H) 74 - 99 mg/dL [...] Comment 10/21/2024 7:42 AM EDT HEALTHCARE LAB Bottom Cager ID Venessa Marcano 10/21/2024 7:42 AM EDT HEALTH[facility]ARE LAB Device ID [id number] 10/21/2024 7:42 AM EDT HEALTH[facility]ARE LAB Specimen Type POC Capillary 10/21/2024 7:42 AM EDT [facility]ARE [facility] Blood Capillary blood specimen / Unknown 10/18/2024 11:56 AM EDT 10/21/2024 7:42 AM EDT us Terrell Gautam MD LAB POINT OF CARE TE ST DOCKED DEVICE UNSOLICITED RESULTS Final Result [facility] [address] [place] [address] * (ABNORMAL) POCT glucose meter (10/18/2024 9:24 AM EDT) Pathologist [facility] POCT Glucose 322(H) 74 - 99 mg/dL [...] Comment 10/21/2024 7:42 AM EDT HEALTHCARE LAB Bottom Cager ID Emilia Alonso 7:42 AM EDT HEALTHCARE LAB Device ID [id number] 10/21/2024 7:42 AM EDT [facility] Specimen Type POC Venous 10/21/2024 7:42 AM EDT [facility] Blood Venous blood specimen / Unknown 10/18/2024 9:24 AM EDT 10/21/2024 7:42 AM EDT Terrell Gautam MD LAB POINT OF CARE TE ST DOCKED DEVICE UNSOLICITED RESULTS Final Result Performing Organization Address City/[facility] Co de Phone Number [facility] [address] [place] [address] * (ABNORMAL) POCT glucose meter (10/18/2024 7:36 AM EDT) [facility] POCT Glucose 215(H) 74 - 99 mg/dL 10/18/2024 7:38 AM EDT [facility] Comment:Accuracy of [...] for testing. Comment 10/18/2024 7:38 AM EDT [facility] Bottom Cager ID Kizzy Godfrey 025 7:38 AM EDT [facility]ALTH[facility]ARE LAB Device ID [id number] 10/18/2024 7:38 AM EDT [facility]ARE [facility] Specimen Type POC Capillary 10/18/2024 7:38 AM EDT [facility] Blood Capillary blood specimen / Unknown 10/18/2024 7:36 AM EDT 10/18/2024 7:38 AM EDT us Terrell Gautam MD LAB POINT OF CARE TE ST DOCKED DEVICE UNSOLICITED RESULTS Final Result [facility] [address] [place] [address] * (ABNORMAL) CBC (10/18/2024 2:09 AM EDT) WBC Count 16.71(H) 3.70 - 10.30 10*3/uL LAB HEMATOLOGY METHOD 10/18/2024 2:33 AM EDT [facility] RBC Count 2.78(L) 4.60 - 6.10 10*6/uL LAB HEMATOLOGY METHOD 10/18/2024 2:33 AM EDT [facility] HGB 8.5(L) 13.7 - 17.5 g/dL LAB HEMATOLOGY METHOD 10/18/2024 2:33 AM EDT [facility] HCT 25.7(L) 40.0 - 51.0 % LAB HEMATOLOGY METHOD 10/18/2024 2:33 AM EDT [facility] Platelet Count 324 155 - 369 10*3/uL LAB HEMATOLOGY METHOD 10/18/2024 2:33 AM EDT [facility] MCV 92 79 - 98 fL LAB HEMATOLOGY METHOD 10/18/2024 2:33 AM EDT [facility] MCH 30.6 26.0 - 32.0 pg LAB HEMATOLOGY METHOD 10/18/2024 2:33 AM EDT [facility] MCHC 33.1 30.7 - 35.5 g/dL LAB HEMATOLOGY METHOD 10/18/2024 2:33 AM EDT [facility] RDW 13.3 11.5 - 14.5 % LAB HEMATOLOGY METHOD 10/18/2024 2:33 AM EDT [facility] MPV 9.4 8.8 - 12.5 fL LAB HEMATOLOGY METHOD 10/18/2024 2:33 AM EDT [facility] nRBC 0.0 <=0.0 per 100 WBCs LAB HEMATOLOGY METHOD 10/18/2024 2:33 AM EDT [facility] Blood Venous blood specimen / Unknown Venipuncture / Unknown 10/18/2024 2:09 AM EDT 10/18/2024 2:25 AM EDT us Nirmal Cueto MD LAB BLOOD ORDERABLES Final Result [facility] [address] [place] [address] * (ABNORMAL) Basic metabolic panel (10/18/2024 2:09 AM EDT) Glucose, Plasma 206(H) 74 - 99 mg/dL 10/18/2024 2:53 AM EDT [facility] BUN, Plasma 24(H) 8 - 23 mg/dL 10/18/2024 2:53 AM EDT [facility] Creatinine, Plasma 1.17 0.70 - 1.20 mg/dL 10/18/2024 2:53 AM EDT [facility] BUN/Creatinine Ratio 21 10/18/2024 2:53 AM EDT [facility] Sodium, Plasma 136 136 - 145 mmol/L 10/18/2024 2:53 AM EDT [facility] Potassium, Plasma 4.8 3.6 - 4.9 mmol/L 10/18/2024 2:53 AM EDT [facility] Chloride, Plasma 104 97 - 107 mmol/L 10/18/2024 2:53 AM EDT [facility] CO2, Plasma 22 22 - 29 mmol/L 10/18/2024 2:53 AM EDT [facility] Anion Gap 10 6 - 16 mmol/L 10/18/2024 2:53 AM EDT [facility] Total Calcium, Plasma 8.5(L) 8.9 - 10.2 mg/dL 10/18/2024 2:53 AM EDT [facility] eGFRcr 69.2 mL/min/1.7 3m*2 10/18/2024 2:53 AM EDT [facility] Comment:Reported eGFRcr in m L/min/1.73m2 is based the CKD-EPI 2020 equation that does not use a race coefficient. Blood Venous blood specimen / Unknown Venipuncture / Unknown 10/18/2024 2:09 AM EDT 10/18/2024 2:25 AM EDT Nirmal Cueto MD LAB BLOOD ORDERABLES Final Result Performing Organization Address City/[facility]/ZIP Co de Phone Number [facility] [address] [place] [address] * (ABNORMAL) Magnesium (10/18/2024 2:09 AM EDT) Magnesium, Plasma 1.8(L) 1.9 - 2.4 mg/dL 10/18/2024 2:53 AM EDT [facility] Blood Venous blood specimen / Unknown Venipuncture / Unknown 10/18/2024 2:09 AM EDT 10/18/2024 2:25 AM EDT us Nirmal Cueto MD LAB BLOOD ORDERABLES Final Result Performing Organization Address [facility] Co de Phone Number [facility] [address] [place] [address] * Phosphorus (10/18/2024 2:09 AM EDT) Phosphorus, Plasma 3.7 2.5 - 4.5 mg/dL 10/18/2024 2:53 AM EDT [facility] Blood Venous blood specimen / Unknown Venipuncture / Unknown 10/18/2024 2:09 AM EDT 10/18/2024 2:25 AM EDT us Nirmal Cueto MD LAB BLOOD ORDERABLES Final Result Performing Organization Address City/[facility]/ZIP Co de Phone Number [facility] [address] [place] [address] * (ABNORMAL) Protime-INR (10/18/2024 2:09 AM EDT) Pathologist [facility] Prothrombin Time 14.5(H) 12.0 - 14.3 sec LAB COAGULATION METHOD 10/18/2024 2:53 AM EDT [facility] INR 1.1 0.9 - 1.1 LAB COAGULATION METHOD 10/18/2024 2:53 AM EDT [facility] Blood Venous blood specimen / Unknown Venipuncture / Unknown 10/18/2024 2:09 AM EDT 10/18/2024 2:25 AM EDT [facility] - 10/18/2024 2:53 AM EDT OPTIMAL INR RANGES FOR PATIENT ON ORAL ANTICOAGULANT THERAPY Prevention of venous thromboembolism INR 2.0 to 3.0 In patients with heart disease: Atrial fibrillation INR 2.0 to 3.0 Valvular heart disease INR 2.0 to 3.0 Tissue heart valves INR 2.0 to 3.0 Mechanical prosthetic valves INR 2.5 to 3.5 Prevention of recurrent PR INR 2.5 to 3.5 Nirmal Cueto MD LAB BLOOD ORDERABLES Final Result [facility] [address] [place] [address] * (ABNORMAL) POCT glucose meter (10/18/2024 2:08 AM EDT) [facility] POCT Glucose 202(H) 74 - 99 mg/dL [...] Comment 10/18/2024 2:10 AM EDT [facility]ALTHCARE LAB Bottom Cager ID Cornelio WALTERS Jourdan 10/18/2024 2:10 AM EDT [facility] Device ID [id number] 10/18/2024 2:10 AM EDT [facility]ALTHCARE LAB Specimen Type POC Capillary 10/18/2024 2:10 AM EDT [facility] Blood Capillary blood specimen / Unknown 10/18/2024 2:08 AM EDT 10/18/2024 2:10 AM EDT Terrell Gautam MD LAB POINT OF CARE TE ST DOCKED DEVICE UNSOLICITED RESULTS Final Result Performing Organization Address [facility] Co de Phone Number [facility] [address] [place] [address] * (ABNORMAL) POCT glucose meter (10/17/2024 10:07 PM EDT) [facility] POCT Glucose 300(H) 74 - 99 mg/dL [...] for testing. Comment 10/17/2024 10:10 PM EDT [facility] Bottom Cager ID Jourdan Grimes II 10/17/2024 10:10 PM EDT [facility] Device ID [id number] 10/17/2024 10:10 PM EDT [facility] Specimen Type POC Capillary 10/17/2024 10:10 PM EDT [facility] Blood Capillary blood specimen / Unknown 10/17/2024 10:07 PM EDT 10/17/2024 10:10 PM EDT Terrell Gautam MD LAB POINT OF CARE TE ST DOCKED DEVICE UNSOLICITED RESULTS Final Result Performing Organization Address City/[facility] Co de Phone Number [facility] [address] [place] [address] * (ABNORMAL) POCT glucose meter (10/17/2024 8:07 PM EDT) [facility] POCT Glucose 391(H) 74 - 99 mg/dL [...] Comment 10/17/2024 8:10 PM EDT HEALTHCARE LAB Bottom Cager ID Jourdan Grimes II 10/17/2024 8:10 PM EDT HEALTHCARE LAB Device ID [id number] 10/17/2024 8:10 PM EDT [facility]ALTH[facility]ARE LAB Specimen Type POC Capillary 10/17/2024 8:10 PM EDT [facility]ARE LAB Blood Capillary blood specimen / Unknown 10/17/2024 8:07 PM EDT 10/17/2024 8:10 PM EDT us Terrell Gautam MD LAB POINT OF CARE TE ST DOCKED DEVICE UNSOLICITED RESULTS Final Result [facility] [address] [place] [address] * (ABNORMAL) POCT glucose meter (10/17/2024 4:01 PM EDT) [facility] POCT Glucose 249(H) 74 - 99 mg/dL [...] Comment 10/17/2024 4:03 PM EDT HEALTHCARE LAB Bottom Cager ID Keisha Waller 10/17/2024 4:03 PM EDT HEALTHCARE LAB Device ID [id number] 10/17/2024 4:03 PM EDT HEALTH[facility]ARE LAB Specimen Type POC Capillary 10/17/2024 4:03 PM EDT [facility] LAB Blood Capillary blood specimen / Unknown 10/17/2024 4:01 PM EDT 10/17/2024 4:03 PM EDT us Terrell Gautam MD LAB POINT OF CARE TE ST DOCKED DEVICE UNSOLICITED RESULTS Final Result Performing Organization Address [facility] Co de Phone Number [facility] [address] [place] [address] * (ABNORMAL) POCT glucose meter (10/17/2024 1:25 PM EDT) [facility] POCT Glucose 225(H) 74 - 99 mg/dL [...] for testing. Comment 10/17/2024 1:27 PM EDT [facility] Bottom Cager ID Kizzy Godfrey 025 1:27 PM EDT HEALTHCARE LAB Device ID [id number] 10/17/2024 1:27 PM EDT HEALTHCARE LAB Specimen Type POC Capillary 10/17/2024 1:27 PM EDT [facility] LAB Blood Capillary blood specimen / Unknown 10/17/2024 1:25 PM EDT 10/17/2024 1:27 PM EDT us Terrell Gautam MD LAB POINT OF CARE TE ST DOCKED DEVICE UNSOLICITED RESULTS Final Result Performing Organization Address [facility] Co de Phone Number [facility] [address] [place] [address] * [place] Less than 1 Hour Intraoperative (10/17/2024 1:18 PM EDT) Narrative IMAGING - 10/17/2024 2:05 PM EDT Images were obtained for surgical purposes. See Terrell Gautam's surgical note in the patient's chart for the findings. us Terrell Gautam MD IMG FLUOROSCOPY PROCEDURES Fi nal Result Performing Organization Address [facility]/ZIP Co de Phone Number IMAGING * POCT ACT (10/17/2024 12:23 PM EDT) [facility] ACT+ (HIGH RANGE) 211 68 - 600 Seconds 10/29/2024 7:28 AM EDT HEALTHCARE LAB Bottom Cager ID Donna Mcmillan 10/29/2024 7:28 AM EDT HEALTHCARE LAB ACT Device ID [id number] 10/29/2024 7:28 AM EDT HEALTHCARE LAB Comment 10/29/2024 7:28 AM EDT [facility] Comment: ACT performed by staff [...] UNSOLICITED RESULTS Final Result [facility] [address] LAB [address] [place] [address] * (ABNORMAL) Blood gas, arterial (10/17/2024 11:48 AM EDT) pH, Arterial 7.34 7.31 - 7.42 LAB HEMATOLOGY METHOD 10/17/2024 11:54 AM EDT [facility] pCO2, Arterial 41 32 - 45 mmHg LAB HEMATOLOGY METHOD 10/17/2024 11:54 AM EDT [facility] pO2, Arterial 202 >80 mmHg LAB HEMATOLOGY METHOD 10/17/2024 11:54 AM EDT [facility] SO2, Measured, Arterial 100(H) 94 - 98 % LAB HEMATOLOGY METHOD 10/17/2024 11:54 AM EDT [facility] Base Excess, Arterial -3.2(L) -2.0 - 3.0 mmol/L LAB HEMATOLOGY METHOD 10/17/2024 11:54 AM EDT [facility] Bicarbonate, Calculated, Arterial 22 22 - 26 mmol/L LAB HEMATOLOGY METHOD 10/17/2024 11:54 AM EDT [facility] Hematocrit, Whole Blood 28.6(L) 40.0 - 51.0 % LAB HEMATOLOGY METHOD 10/17/2024 11:54 AM EDT [facility] Sodium, Whole Blood 137 136 - 145 mmol/L LAB HEMATOLOGY METHOD 10/17/2024 11:54 AM EDT [facility] Potassium, Whole Blood 4.5 3.6 - 4.9 mmol/L LAB HEMATOLOGY METHOD 10/17/2024 11:54 AM EDT [facility] Chloride, Whole Blood 112(H) 97 - 107 mmol/L LAB HEMATOLOGY METHOD 10/17/2024 11:54 AM EDT [facility] Glucose, Whole Blood 201(H) 74 - 99 mg/dL LAB HEMATOLOGY METHOD 10/17/2024 11:54 AM EDT [facility] Ionized Calcium, Whole Blood 4.8 4.6 - 5.1 mg/dL LAB HEMATOLOGY METHOD 10/17/2024 11:54 AM EDT [facility] Lactate, Arterial, Whole Blood 2.3(H) 0.5 - 1.6 mmol/L LAB HEMATOLOGY METHOD 10/17/2024 11:54 AM EDT [facility] Blood Arterial blood specimen / Unknown Arterial Puncture / Unknown 10/17/2024 11:48 AM EDT 10/17/2024 11:53 AM EDT us Jenna Lopez [facility] BLOOD ORDERABLES Final Re sult [facility] [address] [place] [address] * POCT ACT (10/17/2024 11:41 AM EDT) ACT+ (HIGH RANGE) 175 68 - 600 Seconds 10/29/2024 7:28 AM EDT HEALTHCARE LAB Bottom Cager ID Oneyda Alicea 10/29/2024 7:28 AM EDT [facility] ACT Device ID [id number] 10/29/2024 7:28 AM EDT [facility] Comment 10/29/2024 7:28 AM EDT [facility] Comment: ACT performed by staff [...] UNSOLICITED RESULTS Final Result Performing Organization Address [facility] de Phone Number [facility] [address] LAB [address] [place] [address] * POCT ACT (10/17/2024 11:11 AM EDT) ACT+ (HIGH RANGE) 252 68 - 600 Seconds 10/29/2024 7:28 AM EDT HEALTHCARE LAB Bottom Cager ID Donna Mcmillan 10/29/2024 7:28 AM EDT HEALTHCARE LAB ACT Device ID [id number] 10/29/2024 7:28 AM EDT HEALTHCARE LAB Comment 10/29/2024 7:28 AM EDT [facility] Comment: ACT performed by staff [...] UNSOLICITED RESULTS Final Result Performing Organization Address [facility] de Phone Number HEALTHCARE LAB [address] LAB [address] [place] [address] * (ABNORMAL) Blood gas, arterial (10/17/2024 10:46 AM EDT) pH, Arterial 7.35 7.31 - 7.42 LAB HEMATOLOGY METHOD 10/17/2024 10:56 AM EDT [facility] pCO2, Arterial 42 32 - 45 mmHg LAB HEMATOLOGY METHOD 10/17/2024 10:56 AM EDT [facility] pO2, Arterial 161 >80 mmHg LAB HEMATOLOGY METHOD 10/17/2024 10:56 AM EDT [facility] SO2, Measured, Arterial 100(H) 94 - 98 % LAB HEMATOLOGY METHOD 10/17/2024 10:56 AM EDT [facility] Base Excess, Arterial -2.2(L) -2.0 - 3.0 mmol/L LAB HEMATOLOGY METHOD 10/17/2024 10:56 AM EDT [facility] Bicarbonate, Calculated, Arterial 23 22 - 26 mmol/L LAB HEMATOLOGY METHOD 10/17/2024 10:56 AM EDT [facility] Hematocrit, Whole Blood 29.9(L) 40.0 - 51.0 % LAB HEMATOLOGY METHOD 10/17/2024 10:56 AM EDT [facility] Sodium, Whole Blood 138 136 - 145 mmol/L LAB HEMATOLOGY METHOD 10/17/2024 10:56 AM EDT [facility] Potassium, Whole Blood 4.0 3.6 - 4.9 mmol/L LAB HEMATOLOGY METHOD 10/17/2024 10:56 AM EDT [facility] Chloride, Whole Blood 110(H) 97 - 107 mmol/L LAB HEMATOLOGY METHOD 10/17/2024 10:56 AM EDT [facility] Glucose, Whole Blood 174(H) 74 - 99 mg/dL LAB HEMATOLOGY METHOD 10/17/2024 10:56 AM EDT [facility] Ionized Calcium, Whole Blood 5.1 4.6 - 5.1 mg/dL LAB HEMATOLOGY METHOD 10/17/2024 10:56 AM EDT [facility] Lactate, Arterial, Whole Blood 1.4 0.5 - 1.6 mmol/L LAB HEMATOLOGY METHOD 10/17/2024 10:56 AM EDT [facility] Blood Arterial blood specimen / Unknown Arterial Puncture / Unknown 10/17/2024 10:46 AM EDT 10/17/2024 10:54 AM EDT us Jenna Lopez [facility] BLOOD ORDERABLES Final Re sult [facility] [address] [place] [address] * POCT ACT (10/17/2024 10:37 AM EDT) ACT+ (HIGH RANGE) 206 68 - 600 Seconds 10/29/2024 7:28 AM EDT [facility] Bottom Cager ID Donna Mcmillan 10/29/2024 7:28 AM EDT [facility] ACT Device ID [id number] 10/29/2024 7:28 AM EDT HEALTHCARE LAB Comment 10/29/2024 7:28 AM EDT [facility] Comment: ACT performed by staff [...] UNSOLICITED RESULTS Final Result Performing Organization Address City/State/[facility] Co de Phone Number HEALTHCARE LAB [address] LAB [address] [place] [address] * Surgical Pathology Exam (10/17/2024 10:27 AM EDT) Case Report Surgical Pathology Case: [id number] Authorizing Provider: Terrell Gautam MD Collected: 10/17/2024 1027 Ordering Location: [facility] Received: 10/17/2024 1325 Pathologist: Haydee Osborne MD Specimen: Other (specify site), left common femoral plaque 10/21/2024 10:16 AM EDT [facility] Final Diagnosis A. LEFT COMMON FEMORAL PLAQUE, EXCISION: - CALCIFIED PLAQUE 10/21/2024 10:16 AM EDT [facility] at 1016 EDT Clinical Information Critical limb ischemia of left lower extremity [I70.222] 10/21/2024 10:16 AM EDT [facility] Gross Description A. LEFT COMMON FEMORAL PLAQUE Received in formalin labeled l eft common femoral plaque , is one aggregate of red-gabriel hard portions of plaque measuring 3.7 x 2.5 x 0.9 cm. The specimen is serially sectioned and field sales representative sections are submitted in cassette A1. Cold Time: <1m Kenia Pastor Yola 10/21/2024 10:16 AM EDT [facility] Note: A resident was involved in the service. I attest I examined the relevant preparations for the specimens and confirmed the diagnosis or interpretation. 10/21/2024 10:16 AM EDT [facility] Tissue Topography unknown / Unknown 10/17/2024 10:27 AM EDT 10/17/2024 1:25 PM EDT Comment:Pre-op diagnosis: Critical limb ischemia of left lower extremity [I70.222] us Terrell Gautam MD LAB PATHOLOGY ORDERABLES Gwen l Result Performing Organization Address City/[facility]/ZIP Co de Phone Number [facility] [address] [place] [address] * POCT ACT (10/17/2024 10:03 AM EDT) ACT+ (HIGH RANGE) 244 68 - 600 Seconds 10/29/2024 7:28 AM EDT HEALTHCARE LAB Bottom Cager ID Donna Mcmillan 10/29/2024 7:28 AM EDT [facility] ACT Device ID [id number] 10/29/2024 7:28 AM EDT [facility] Comment 10/29/2024 7:28 AM EDT [facility] Comment: ACT performed by staff [...] UNSOLICITED RESULTS Final Result Performing Organization Address [facility]/ZIP Co de Phone Number [facility] [address] LAB [address] [place] [address] * (ABNORMAL) Blood gas, arterial (10/17/2024 9:45 AM EDT) pH, Arterial 7.37 7.31 - 7.42 LAB HEMATOLOGY METHOD 10/17/2024 9:55 AM EDT [facility] pCO2, Arterial 43 32 - 45 mmHg LAB HEMATOLOGY METHOD 10/17/2024 9:55 AM EDT [facility] pO2, Arterial 177 >80 mmHg LAB HEMATOLOGY METHOD 10/17/2024 9:55 AM EDT [facility] SO2, Measured, Arterial 100(H) 94 - 98 % LAB HEMATOLOGY METHOD 10/17/2024 9:55 AM EDT [facility] Base Excess, Arterial -0.5 -2.0 - 3.0 mmol/L LAB HEMATOLOGY METHOD 10/17/2024 9:55 AM EDT [facility] Bicarbonate, Calculated, Arterial 25 22 - 26 mmol/L LAB HEMATOLOGY METHOD 10/17/2024 9:55 AM EDT [facility] Hematocrit, Whole Blood 30.0(L) 40.0 - 51.0 % LAB HEMATOLOGY METHOD 10/17/2024 9:55 AM EDT [facility] Sodium, Whole Blood 137 136 - 145 mmol/L LAB HEMATOLOGY METHOD 10/17/2024 9:55 AM EDT [facility] Potassium, Whole Blood 4.3 3.6 - 4.9 mmol/L LAB HEMATOLOGY METHOD 10/17/2024 9:55 AM EDT [facility] Chloride, Whole Blood 108(H) 97 - 107 mmol/L LAB HEMATOLOGY METHOD 10/17/2024 9:55 AM EDT [facility] Glucose, Whole Blood 191(H) 74 - 99 mg/dL LAB HEMATOLOGY METHOD 10/17/2024 9:55 AM EDT [facility] Ionized Calcium, Whole Blood 5.0 4.6 - 5.1 mg/dL LAB HEMATOLOGY METHOD 10/17/2024 9:55 AM EDT [facility] Lactate, Arterial, Whole Blood 1.3 0.5 - 1.6 mmol/L LAB HEMATOLOGY METHOD 10/17/2024 9:55 AM EDT [facility] Blood Arterial blood specimen / Unknown Arterial Line / Unknown 10/17/2024 9:45 AM EDT 10/17/2024 9:52 AM EDT us Jenna Lopez [facility] BLOOD ORDERABLES Final Re sult [facility] [address] [place] [address] * (ABNORMAL) Blood gas, arterial (10/17/2024 8:47 AM EDT) pH, Arterial 7.37 7.31 - 7.42 LAB HEMATOLOGY METHOD 10/17/2024 8:59 AM EDT [facility] pCO2, Arterial 43 32 - 45 mmHg LAB HEMATOLOGY METHOD 10/17/2024 8:59 AM EDT [facility] pO2, Arterial 205 >80 mmHg LAB HEMATOLOGY METHOD 10/17/2024 8:59 AM EDT [facility] SO2, Measured, Arterial 100(H) 94 - 98 % LAB HEMATOLOGY METHOD 10/17/2024 8:59 AM EDT [facility] Base Excess, Arterial -0.3 -2.0 - 3.0 mmol/L LAB HEMATOLOGY METHOD 10/17/2024 8:59 AM EDT [facility] Bicarbonate, Calculated, Arterial 25 22 - 26 mmol/L LAB HEMATOLOGY METHOD 10/17/2024 8:59 AM EDT [facility] Hematocrit, Whole Blood 31.3(L) 40.0 - 51.0 % LAB HEMATOLOGY METHOD 10/17/2024 8:59 AM EDT [facility] Sodium, Whole Blood 138 136 - 145 mmol/L LAB HEMATOLOGY METHOD 10/17/2024 8:59 AM EDT [facility] Potassium, Whole Blood 4.0 3.6 - 4.9 mmol/L LAB HEMATOLOGY METHOD 10/17/2024 8:59 AM EDT [facility] Chloride, Whole Blood 108(H) 97 - 107 mmol/L LAB HEMATOLOGY METHOD 10/17/2024 8:59 AM EDT [facility] Glucose, Whole Blood 162(H) 74 - 99 mg/dL LAB HEMATOLOGY METHOD 10/17/2024 8:59 AM EDT [facility] Ionized Calcium, Whole Blood 5.2(H) 4.6 - 5.1 mg/dL LAB HEMATOLOGY METHOD 10/17/2024 8:59 AM EDT [facility] Lactate, Arterial, Whole Blood 1.7(H) 0.5 - 1.6 mmol/L LAB HEMATOLOGY METHOD 10/17/2024 8:59 AM EDT [facility] Blood Arterial blood specimen / Unknown Arterial Puncture / Unknown 10/17/2024 8:47 AM EDT 10/17/2024 8:58 AM EDT us Jenna Lopez [employer] LAB BLOOD ORDERABLES Final Re sult [facility] [address] [place] [address] * POCT ACT (10/17/2024 8:46 AM EDT) ACT+ (HIGH RANGE) 101 68 - 600 Seconds 10/29/2024 7:28 AM EDT HEALTHCARE LAB Bottom Cager ID Donna Mcmillan 10/29/2024 7:28 AM EDT [facility] ACT Device ID [id number] 10/29/2024 7:28 AM EDT HEALTHCARE LAB Comment 10/29/2024 7:28 AM EDT [facility] Comment: ACT performed by staff [...] ST DOCKED DEVICE UNSOLICITED RESULTS Final Result [facility] [address] LAB [address] [place] [address] * Type and Screen (10/17/2024 7:19 AM EDT) ABO/Rh A Negative 10/17/2024 7:04 AM EDT BLOOD BANK Antibody Screen Negative 10/17/2024 7:04 AM EDT BLOOD BANK Specimen Expiration 10/20/2024 23:59 10/17/2024 7:04 AM EDT BLOOD BANK Blood Venous blood specimen / Unknown Venipuncture / Unknown 10/17/2024 7:19 AM EDT 10/17/2024 7:28 AM EDT Maria Fernanda Mccallum MD LAB BLOOD BANK TEST ORDERAB LES Final Result Performing Organization Address City/[facility]/ZIP Co de Phone Number BLOOD BANK [address] [place] [address], * (ABNORMAL) POCT glucose meter (10/17/2024 6:44 [...] 10/17/2024 6:49 AM EDT [facility] Bottom Cager ID Hunter Burroughs 10/18/19 6:49 AM EDT HEALTHCARE LAB Device ID [id number] 10/17/2024 6:49 AM EDT [facility]ALTHCARE LAB Specimen Type POC Capillary 10/17/2024 6:49 AM EDT [facility]ALTH[facility] LAB Blood Capillary blood specimen / Unknown 10/17/2024 6:44 AM EDT 10/17/2024 6:49 AM EDT us Terrell Gautam MD LAB POINT OF CARE TE ST DOCKED DEVICE UNSOLICITED RESULTS Final Result [facility] [address] [place] [address] documented in this encounter Visit Diagnoses Diagnosis [...] Units, Subcutaneous, 2 times nightly (2099 & 030), First dose on Mon10/17/24 at 2100, Until [...] Provider: Keisha Waller RN - Reason: Order changed)210 (Given - Provider: Jourdan Grimes II, RN) 0612 (Not Given - Provider: Rose De La Torre RN - Reason: Patient/family refused)1434 (Not Given - Provider: Jere Farrell RN - Reason: Patient/family refused)2119 (Not Given - Provider: Kassie Mao RN - Reason: Patient/family refused) 0534 (Not Given - Provider: Kassie Mao RN - Reason: Patient/family refused - Comment: states gives him heart burn)1400 (Canceled Entry - Provider: Automatic Discharge Provider - Comment: Automatically canceled at discontinue of medication order) ceFAZolin (Ancef) injection 2 g (COMPLETED) 2 g, Intravenous, Once, 1 dose, On Yadira 10/17/24 at 0745, Routine, Anesthesia Intraprocedure 0842 (Given - Provider: Maria Fernanda Mccallum MD)1234 (Given - Provider: Jenna Lopez CRNA) clopidogrel (Plavix) tablet 75 mg 75 mg, Oral, Daily, First dose on Yadira 10/17/24 at 1400, Until Discontinued, Routine, Recovery(Phase II-Outpatient)/On Unit(Inpatient) 1414 (Given - Provider: Keisha Waller RN) 0809 (Given - Provider: Emilia Alonso RN) 0952 (Given - Provider: Keyla Chow) docusate sodium (Colace) capsule 100 mg 100 mg, Oral, 2 times daily, First dose on Yadira 10/17/24 at 1400, Until Discontinued, Routine, Recovery(Phase II-Outpatient)/On Unit(Inpatient) 1414 (Given - Provider: Keisha Waller, RN)2012 (Given - Provider: Jourdan Grimes II, CHRISTIAN) 0801 (Given - Provider: Emilia Alonso, RN)2001 (Given - Provider: Kassie Mao, RN) 09 (Given - Provider: Keyla Chow) enoxaparin (Lovenox) syringe 40 mg (COMPLETED) 40 mg, Subcutaneous, Daily, 1 dose, First dose on Mon10/18/24 at 1000, Routine 1003 (Given - Provider: Emilia Alonso RN) insulin glargine-yfgn 100 UNIT/ML injection 28 Units [...] Routine 1204 (Given - Provider: Venessa Marcano, CHRISTIAN)1814 (Not Given - Provider: Keyla Chow - Reason: NPO - Comment: patient not ate meal and request to wait.)1815 (Canceled Entry - Provider: Keyla Chow) 0830 [...] Units, Subcutaneous, 2 times nightly (2099 & 299), First dose on Mon10/18/24 at 2100, Until [...] Routine 1204 (Given - Provider: Venessa Marcano, CHRISTIAN) 0952 (Given - Provider: Keyla Chow) magnesium sulfate IVPB 2 g (COMPLETED) 2 g, Intravenous, Once, 1 dose, On Mon10/18/24 at 0945, Routine 1008 (New Bag - Provider: Emilia Alonso RN) metoprolol tartrate (Lopressor) tablet 100 mg 100 mg, Oral, 2 times daily, First dose on Mon10/17/24 at 1400, Until Discontinued, Routine, Recovery(Phase II-Outpatient)/On Unit(Inpatient) 1414 (Given - Provider: Keisha Waller, CHRISTIAN)2012 (Given - Provider: Jourdan Grimes II, RN) 08 (Given - Provider: Emilia Alonso, RN)2001 (Given - Provider: Kassie Mao, CHRISTIAN) 0951 (Given - Provider: Keyla Chow) Povidone-Iodine 5 % swab solution 1 Application (COMPLETED) Nasal, Once, 1 dose, On Mon10/17/24 at 0745, Routine 07 (Given - Provider: Tanja Denise, CHRISTIAN) pravastatin (Pravachol) tablet 40 mg 40 mg, Oral, Nightly, First dose on Yadira 10/17/24 at 2100, Until Discontinued, Routine, Recovery(Phase II-Outpatient)/On Unit(Inpatient) 2012 (Given - Provider: Jourdan Grimes II, CHRISTIAN) 2001 (Given - Provider: Kassie Mao, CHRISTIAN) rivaroxaban (Xarelto) tablet 20 mg 20 mg, Oral, Daily with dinner, First dose on Mon10/18/24 at 1800, Until Discontinued, Routine 1743 (Given - Provider: Keyla Chow) rOPINIRole (Requip) tablet 2 mg 2 mg, Oral, 2 times daily, First dose on Yadira 10/17/24 at 2100, Until Discontinued, Routine 2012 (Given - Provider: Jourdan Grimes II, CHRISTIAN) 08 (Given - Provider: Emilia Alonso, CHRISTIAN)2001 (Given - Provider: Kassie Mao, CHRISTIAN) 0952 (Given - Provider: Keyla Chow) sodium chloride 0.9 % flush 10 mL (CANCELED)(Linked Group 1) 10 mL, Intravenous, Every 12 hours, First dose on Yadira 10/17/24 at 0745, Until Discontinued, Routine, Holding - Preprocedure 07 (Given - Provider: Tanja Denise, CHRISTIAN)1944 (Given - Provider: Jourdan Grimes II, RN) 07 (Canceled Entry - Provider: Emilia Alonso, CHRISTIAN) tamsulosin (Flomax) 24 hr capsule 0.4 mg 0.4 mg, Oral, Every evening, First dose on Yadira 10/17/24 at 1700, Until Discontinued, Routine, Recovery(Phase II-Outpatient)/On Unit(Inpatient) 165 (Given - Provider: Keisha Waller, RN) 1744 (Given - Provider: Keyla Chow) PRN Medication Order 10/17/2024 10/18/2024 10/19/2024 acetaminophen (Tylenol) tablet 1,000 mg (COMPLETED) 1,000 mg, Oral, Once as needed, 1 dose, Starting on Yadira 10/17/24 at 1225, Until Yadira 10/17/24 at 1414, Routine, Recovery (Phase I only), pain score of >1 out of 10 141 (Given - Provider: Keisha Waller, CHRISTIAN) ceFAZolin [...] Waller, CHRISTIAN)2302 (Given - Provider: Jourdan Grimes II RN) 0444 (Given - Provider: Rose De La Torre, CHRISTIAN)1109 (Given - Provider: Emilia Alonso, CHRISTIAN) 0239 (Given - Provider: Kassie Mao, CHRISTIAN) Linked Groups Order Group 1: Insert peripheral IV (CANCELED) Once, On Mon10/17/24 at 0654, For 1 occurrence, Holding - Preprocedure And Saline lock IV (CANCELED) Once, On Yadira 10/17/24 at 0654, For 1 occurrence, Holding - Preprocedure And sodium chloride 0.9 % flush 10 mL (CANCELED)Jump to med 10 mL, Intravenous, Every 12 hours, First dose on Mon10/17/24 at 0745, Until Discontinued, Routine, Holding - Preprocedure And sodium chloride 0.9 % flush 10 mL (CANCELED) 10 mL, Intravenous, As needed, Starting on Mon10/17/24 at 0653, Until Mon10/18/24 at 1510, Routine, Holding - Preprocedure, line [...] documented as of this encounter Care Teams Market Analysis Director Relationship Specialty Start Date End Date Asad Victor MD [address] [place] [id number] PCP - General 10/07/22 documented as of this encounter
--- OUTSIDE RECORDS SUMMARY | 2024-10-17 07:51 | XMS_ITS | Encounter Summary ---
Author Organization [facility] Address [address] [id number] Care Team Providers Care Nursing Home Assistant Administrator Name Role Phone Asad Victor MD Primary Care Provider + [phone] Reason for Visit * Auth/Cert (Routine) Specialty Diagnoses / Procedures Referred By Contac t Referred To Contact Diagnoses Critical limb ischemia of left lower extremity Critical limb ischemia of left lower extremity [I70.222] Procedures CA VEIN BYPASS GRAFT,FEM-POP CREATION, BYPASS, ARTERIAL, FEMORAL TO POPLITEAL Terrell Gautam MD [address] [facility] [address] [place] [address] Phone: tel: fax: PAV A OPERATING ROOM [address] [place] [address] Phone: tel: Referral ID Status Reason Start Date Expiration Date Visits Re quested Visits Authorized [id number] 1 1 Encounter Details Date Type Department Care Team (Late st Contact Info) Description 10/17/2024 7:51 AM EDT Anesthesia Event P[facility] A OPERATING ROOM [address] [place] [phone] Maria Fernanda Mccallum MD [address] [place] [address] Anesthesia Record Procedure Summary Procedure [...] Hand; Site Prep: Chlorhexidine ; Local Anesth: [place]; Technique: Anatomical landmarks; Inserted by: CHRISTIAN Acuna; [...] any time in the past 12 m [facility], were you homeless or [...] drink first t dino in the morning (EYE-GEM TECHNICIAN) to steady your nerves or to [...] * Anesthesia Postprocedure Evaluation - Jenna Lopez, FIRE APPARATUS ENGINEER - 10/17/2024 1:29 PM EDT Patient: Mono [...] by Swetha Villareal MD Staffing Performed: ISH FIRE APPARATUS ENGINEER: Jenna Lopez CRNA * Anesthesia Procedure Notes - eJnna Lopez CRNA - 10/17/2024 9:00 AM EDT Associated Order(s): Airway Airway Date/Time: 10/17/2024 8:03 AM Reason: elective Airway not difficult General Information and Staff Patient location during procedure: OR FIRE APPARATUS ENGINEER: Jenna Lopez CRNA Performed: FIRE APPARATUS ENGINEER Patient Condition Indications for airway management: anesthesia [...] HTN, RLS who presented to [facility] with a large left [...] note 09/25/24 (media) + CAD s/p multiple [place]'s and 3V CABG 02/2019, 2 stents prior to CABG Atrial Fibrillation with RVR s/p CABG + carotid artery disease s/p R CEA 2016 + 3rd degree AV block STREET LIGHT CLEANER-P placed 08/2023 for Wenkeback with 11 sec pause + HLD + HTN - controlled + PAD 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 CORONARY ANGIOPLASTY Left Coronary Angiography With Concomitant Left Heart Catheterization from [facility] ??? CORONARY ARTERY BYPASS GRAFT N/A 2018 [...] Description 11/29/2024 2:30 PM EDT Office Visit [facility] [address] [place] [address] Oscar Appiah MD [address] [address] documented as of this encounter Goals [...] ANESTHESIA PLACEHOLDER Routine 10/17/2024 8:03 AM EDT CA AN ELECTIVE ENDOTRACHEAL AIRWAY Routine 10/17/2024 8:03 AM EDT [facility] AN POCUS CARDIAC PROCDOC Routine 10/17/2024 7:18 AM EDT documented in this encounter Results * ANESTHESIA ULTRASOUND GUIDED (10/17/2024 8:52 AM EDT) Maria Fernanda Dewey MD - 10/17/2024 8:52 AM EDT Maria Fernanda Mccallum MD 10/17/2024 8:52 AM Peripheral IV Inserted by: Maria Fernanda Mccallum MD Placement Location: forearm Local anesthetic: none Site prep: chlorhexidine Technique: ultrasound guided Attempts: 1 Maria Fernanda Mccallum MD ANESTHESIA ORDERABLES Final Result * PB ANESTHESIA NON-TIMED PROCEDURE PLACEHOLDER (10/17/2024 8:25 AM EDT) Jenna Martinez CRNA - 10/17/2024 8:25 AM EDT Jenna [...] Performed by Swetha Villareal MD Staffing Performed: FIRE APPARATUS ENGINEER FIRE APPARATUS ENGINEER: Jenna Lopez CRNA Maria Fernanda Mccallum MD ANESTHESIA ORDERABLES Edite d Result - Final * CA AN ELECTIVE ENDOTRACHEAL AIRWAY, PB ANESTHESIA PLACEHOLDER (10/17/2024 8:03 AM EDT) Jenna Martinez CRNA - 10/17/2024 8:03 AM EDT Jenan Lopez CRNA 10/17/2024 9:00 AM Airway Date/Time: 10/17/2024 8:03 AM Reason: elective Airway not difficult General Information and Staff Patient location during procedure: OR FIRE APPARATUS ENGINEER: Jenna Lopez CRNA Performed: FIRE APPARATUS ENGINEER Patient Condition Indications for airway management: anesthesia [...] Mccallum MD ANESTHESIA ORDERABLES Final Result * [facility] AN POCUS CARDIAC PROCDOC (10/17/2024 7:18 [...] Trace AR. The images were Saved in [employer] - E. The study was technically adequate. Comments: I personally performed and interpreted the study Maria Fernanda Mccallum MD IN CLINIC/BEDSIDE ORDERABLE [...] documented as of this encounter Care Teams Nursing Home Assistant Administrator Relationship Specialty Start Date End Date Asad Victor MD [address] [place] [address] PCP - General 10/07/22 documented as of this encounter
--- OUTSIDE RECORDS SUMMARY | 2024-10-17 08:00 | XMS_ITS | Encounter Summary ---
Author Organization [facility] Address [address] [place] [address] Care Team Providers Care Home Theatre Technician Name Role Phone Asad Victor MD Primary Care Provider + [phone] Reason for Visit * Auth/Cert (Routine) Specialty Diagnoses / Procedures Referred By Contac t Referred To Contact Diagnoses Critical limb ischemia of left lower extremity Critical limb ischemia of left lower extremity [I70.222] Procedures HI VEIN BYPASS GRAFT,FEM-POP CREATION, BYPASS, ARTERIAL, FEMORAL TO POPLITEAL Terrell Gautam MD [address] [address] Phone: tel: fax: [facility] [address] [place] [address] Phone: tel: Referral ID Status Reason Start Date Expiration Date Visits Re quested Visits Authorized [id number] 1 1 Encounter Details Date Type Department Care Team (Late st Contact Info) Description 10/17/2024 8:00 AM EDT - 10/17/2024 2:50 PM EDT Surgery [facility] [address] [place] [address] Terrell Gautam MD [address] [address] CREATION, BYPASS, ARTERIAL, FEMORAL TO POPLITEAL [70673 (CPT )] Surgery Details Date/Time Status Location [...] any time in the past 12 m the [facility] institute, were you homeless or living in [...] drink first t dino in the morning (EYE-CHEF DE CUISINE) to steady your nerves or to get rid of a hangover? 0 10/18/2021 CAGE Questionnaire Score 0 022 Utilities Answer Date Recorded In the past 12 months has th e [employer], gas, oil, or water [employer] threatened to shut off services in your [...] provided Taken 10/17/20242107 by Jourdan Grimes II, internal revenue agent Review/Management: medications reviewed Problem: Skin Injury Risk [...] Nausea and Vomiting Relief 10/19/2024 1145 by eKyla Chow Outcome: Met [...] Ongoing, Progressing Intervention: Promote Activity and Functional Amelia Flowsheets (Taken 10/19/2024 1048) Self-Care Promotion: BADL personal objects within reach meal set-up provided * Yuni Ramires - Keyla Chow - 10/19/2024 11:45 AM EDT Images from the original note were not included. [id number] After Peripheral Artery Bypass Surgery: In the [...] home. Last Reviewed Date: 2023 00:00:00 ?? 7615-4633 [employer]. All rights reserved. This information is not intended as a substitute for professional medical care. Always follow your healthcare professional's instructions. * Progress Notes - Emelina Friend - 10/19/2024 11:44 AM EDT Case Management Adult Progress Note Bev Bobby 64 y.o. male CSN: [id number] Admission: 10/17/2024 6:21 AM Primary Problem: Critical [...] if any other needs arise. Emelina Friend CASING SOAKER, METAL MOCKUP MAKER Social Work Case Management * Yuni Ramires - Keyla Chow - 10/19/2024 11:44 AM EDT Images from the original note were not included. [id number] Peripheral Artery Disease (PAD) Peripheral artery disease [...] cause. Last Reviewed Date: 2024 00:00:00 ?? 6675-8635 [employer]. All rights reserved. This information is not intended as a substitute for professional medical care. Always follow your healthcare professional's instructions. * Yuni Ramires - Keyla Chow - 10/19/2024 11:44 AM EDT Images from the original note were not included. 50415 Leg Artery Emergencies: Critical Limb Ischemia (CLI) [...] appointments. Last Reviewed Date: 2023 00:00:00 ?? 4506-9640 [employer]. All rights reserved. This information is not intended as a substitute for professional medical care. Always follow your healthcare professional's instructions. * Discharge Summary - Dandy Baltazar MD - 10/19/2024 11:31 AM EDT Hospitalization Admit Date/Time: 10/17/2024 6:21 AM Admitting Attending: Terrell Gautam Discharge Date: 10/19/24 Discharge Attending Physician: Nirmal Cueto MD PCP name and Address: Asad Victor MD (Inactive) [address] [facility] [address] Referring provider name and address: Timothy Marques PA [address] [place] [address] Chief Concern, Brief History of Present Illness, and Hospital Course Bev Bobby is an 64 y.o. 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 He [...] were sent to [facility] [place], [place] - [address] [facility] [address] [facility] [address]., [facility] [address] acetaminophen 500 MG tablet clopidogrel 75 MG [...] of water. 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 He [...] provided Taken 10/17/20242107 by Jourdan Grimes II internal revenue agent Review/Management: medications reviewed Problem: Skin Injury Risk [...] Ongoing, Progressing Intervention: Promote Activity and Functional Amelia Flowsheets (Taken 10/19/2024 1048) Self-Care Promotion: BADL [...] evaluation. PARTICIPANTS IN CARE Visitors Present No Manager Travel (if applicable) PRESENTATION Oxygen Oxygen Therapy: None [...] Level of Mobility Ambulatory- household only Mobility Amelia Independent gait with device (rollator) History of [...] numbness in rodney) BED MOBILITY Level of Amelia Physical/Non- physical Assist Adaptive Equipment Utilized Rolling/ Turning Scooting/ Bridging Modified independence (anteriorly to EOB) Bed rails Supine to Sit Modified Amelia (to the right) (HOB flat) Bed rails Sit to Supine Interventions HOB flat to simulate home environment TRANSFERS Level of Amelia Physical/Non- physical Assist Adaptive Equipment Utilized Sit [...] stable surfaces during transitions. AMBULATION Level of Amelia Distance Adaptive Equipment Utilized Ambulation Standby assist, [...] Posture: Forward head, Rounded shoulders Level of Amelia Balance Support Interventions Static Sit Independent Right [...] Assessments Standardized Assessments: AMPA 6-Clicks Mobility Assessment [facility] 6-Clicks Mobility Assessment Difficulty patient has [...] 3-5 steps with a railing?: A little [facility] 6-Clicks Mobility Assessment Total : 22 [...] evaluation/session. Participants in Care Family/Caregiver Present: No Manager Travel: Not Applicable Presentation Oxygen Therapy: None (Room [...] Level of Mobility: Ambulatory- household only Mobility Amelia: Independent gait with device (rollator) History of [...] Mobility Bed Mobility Exam: Scooting/Bridging Level of Amelia: Modified independence (anteriorly to EOB) Assistive Device: Bed rails Bed Mobility Exam: Supine to Sit Level of Amelia: Modified Amelia (to the right) Physical/Nonphysical Assist: (HOB flat) Assistive Device: Bed rails Transfers Transfer Exam: Sit to stand Level of Amelia: Stand-by assist Physical/Nonphysical Assist: Supervision, Verbal Cues, Minimal cues Assistive Device: Walker, rolling Transfer Exam: Stand to Sit Level of Amelia: Stand-by assist Physical/Nonphysical Assist: Supervision, Verbal Cues, [...] regarding toileting at this time. Standardized Assessments [facility] 6-Click Daily Activities Help from Other: Don/Doff Regular Lower Body Clothings: None Help From Other: Bathing: Little Help From Other: Toileting: None Help From Other: Don/Doff Upper Body Clothings: None Help From Other: Grooming: None Help From Other: Eating Meals: None [facility] 6 Click - Daily Activities Score: 23/24 [facility] Scoring Interpretation: Scores greater than 20.5 [...] Note Bev Bobby 64 y.o. male CSN: [id number] Admission: 10/17/2024 6:21 AM Primary Problem: Critical limb ischemia of left lower extremity Laboratory Clerk reviewed chart and spoke with patient to complete this Initial Case Management Assessment. PCP: Asad Victor MD (Inactive) - Dr. Palomo Preferred pharmacy is [facility] Emergency Contact: Extended Emergency Contact Information Primary Emergency Contact: Patti Hill Relation: Sister Manager Travel needed? No Insurance: Primary Visit Coverage Payer Plan Sponsor Code Group Number Group Name [facility] MEDICARE [facility] MEDICARE REPLACEMENT [id number] Primary Visit Coverage Subscriber Subscriber ID Subscriber Name Subscriber [facility] Subscriber Address [id number] BEV BOBBY [id number] [place] [address] Secondary Visit Coverage Payer Plan Sponsor Code Group Number Group Name [employer] MED[employer] [facility] Secondary Visit Coverage Subscriber Subscriber ID Subscriber Name Subscriber [facility] Subscriber Address [id number] BEV BOBBY [id number] [place] [address] Patient information: Primary Caregiver: Self Daily Living Activities: Functional Status: Independent Living Arrangements: Alone Type of Residence: Private residence, Single Level [address] [place] [address] Current DME: Equipment Currently Used at Home: joy monterroso Income Information: Income Source: Retired Income/Expense Information: Income meets expenses Current Resources Utilized: Food [place] Housing Circumstances-Z Codes: Housing Circumstances (select all [...] Dialysis Services: None. Living Will/Advance Directive/Power of Bleacher Operator /Guardian: Denied. Additional Comments: Patient is not medically ready for discharge. SW will continue to follow. Mariia Monterroso METAL MOCKUP MAKER * Care Plan - Emilia Alonso RN [...] from the original note were not included. [facility] Department of Surgery Division of Vascular [...] Prevention: activity supervised assistive device/personal items within [facility] fall prevention program maintained lighting adjusted [...] Agree with above assessment and evaluation from resident/COMMUNICATIONS TOWER CLIMBER. * Op Note - Terrell Gautam MD - 10/17/2024 8:52 AM EDT Operative Note Date: 10/17/24 Location: [facility] Name: Bev Bobby, : 1960, Diagnoses: Pre-op Diagnosis Critical limb ischemia of left lower extremity Common femoral artery pseudoaneurysm Post-op Diagnosis Critical limb ischemia of left lower extremity Common femoral artery pseudoaneurysm Procedure(s): Left common/superficial/profunda femoral thromboendarterectomy with bovine patch repair Left external iliac artery/SPORTS PSYCHOLOGIST stent Attending Surgeon(s): * Terrell Gautam - Primary Warp Knitter(s): * Luna Beckett MD - Resident - [...] Necessity Reasons Recent surgery contiguous with urinary tract/BOOT AND SHOE LABORER/colorectal 10/17/24 190 Output (mL) 50 mL 10/18/24 08 Implants Type Name Action Serial No. VASCUGUARD 8 X 8 - [id number] Implanted STENT ENDOPROSTHESIS VIABAHN 9FR [id number] - [id number] Implanted [id number] Specimen: Specimens ID Source Frozen? 1 Other [...] and distal control. We then proceeded with omjiy-opx-tcwl exposure of the popliteal artery. A medial [...] balloon dilated thestent with a 9 mm Sunset. We closed the arteriotomy with a single [...] 10/17/2024 8:52 AM EDT Date: 10/17/24 Location: [facility] Name: Bev Bobby, : 1960, Diagnoses: Pre-op Diagnosis Critical limb ischemia of left lower extremity Common femoral artery pseudoaneurysm Post-op Diagnosis Critical limb ischemia of left lower extremity Common femoral artery pseudoaneurysm Procedure(s): Left common/superficial/profunda femoral thromboendarterectomy with bovine patch repair Left external iliac artery/SPORTS PSYCHOLOGIST stent Attending Surgeon(s): * Terrell Gautam - Primary Warp Knitter(s): * Luna Beckett MD - Resident - Assisting * Dandy Baltazar MD - Fellow Anesthesia: General ASA: III Blood Administration: Blood Product Administration History None Estimated Blood Loss: 300 mL Drains: Urethral Catheter Temperature probe 16 Fr. (Active) Implants Type Name Action Serial No. VASCUGUARD 8 X 8 - [id number] Implanted STENT ENDOPROSTHESIS VIABAHN 9FR [id number] - [id number] Implanted [id number] Specimen: Specimens ID Source Frozen? 1 Other [...] issues. 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 He previouslyunderwent thrombin injection. He reports pain in his calves. He presents today for scheduled left lower extremity femoral to riwtk-lqn-wppw popliteal bypass. Planned likely use PTFE. He [...] 16. Results Review {Vanishing Link Review Results :[id number] I have reviewed the latest lab and imaging results. Assessment & Plan Critical limb ischemia of left lower extremity Proceed with scheduled surgery left lower extremity femoral to suyxv-kxn-wtoq popliteal artery bypass graft. Extensive discussion had [...] Description 11/29/2024 2:30 PM EDT Office Visit [facility] [address] [place] [address] [phone] Oscar Appiah MD [address] [facility] [address] [place] [address] Pending Results Name Type Priority [...] - 99 mg/dL 10/19/2024 11:42 AM EDT [facility] Comment:Accuracy of a glucos e [...] for testing. Comment 10/19/2024 11:42 AM EDT [facility] Blending Supervisor ID KamranJob gallardo 10/20/19 11:42 AM EDT [facility] Device ID [id number] 10/19/2024 11:42 AM EDT [facility] Specimen Type POC Capillary 10/19/2024 11:42 AM EDT [facility] Blood Capillary blood specimen / Unknown 10/19/2024 11:40 AM EDT 10/19/2024 11:42 AM EDT us Terrell Gautam MD LAB POINT OF CARE TE ST DOCKED DEVICE UNSOLICITED RESULTS Final Result Performing Organization Address [facility] Co de Phone Number [facility] [address] [place] [address] * (ABNORMAL) Protime-INR (10/19/2024 8:25 AM EDT) Prothrombin Time 17.5(H) 12.0 - 14.3 sec LAB COAGULATION METHOD 10/19/2024 9:25 AM EDT [facility] INR 1.4(H) 0.9 - 1.1 LAB COAGULATION METHOD 10/19/2024 9:25 AM EDT [facility] Blood Venous blood specimen / Unknown Venipuncture / Unknown 10/19/2024 8:25 AM EDT 10/19/2024 8:43 AM EDT Narrative [facility] - 10/19/2024 9:25 AM EDT OPTIMAL INR RANGES FOR PATIENT ON ORAL ANTICOAGULANT THERAPY Prevention of venous thromboembolism INR 2.0 to 3.0 In patients with heart disease: Atrial fibrillation INR 2.0 to 3.0 Valvular heart disease INR 2.0 to 3.0 Tissue heart valves INR 2.0 to 3.0 Mechanical prosthetic valves INR 2.5 to 3.5 Prevention of recurrent NM INR 2.5 to 3.5 us Nirmal Cueto MD LAB BLOOD ORDERABLES Final Result [facility] [address] [place] [address] * (ABNORMAL) Phosphorus (10/19/2024 8:25 AM EDT) Phosphorus, Plasma 2.2(L) 2.5 - 4.5 mg/dL 10/19/2024 9:12 AM EDT [facility] Blood Venous blood specimen / Unknown Venipuncture / Unknown 10/19/2024 8:25 AM EDT 10/19/2024 8:43 AM EDT us Nirmal Cueto MD LAB BLOOD ORDERABLES Final Result [facility] [address] [place] [address] * Magnesium (10/19/2024 8:25 AM EDT) Magnesium, Plasma 2.1 1.9 - 2.4 mg/dL 10/19/2024 9:12 AM EDT [facility] Blood Venous blood specimen / Unknown Venipuncture / Unknown 10/19/2024 8:25 AM EDT 10/19/2024 8:43 AM EDT us Nirmal Cueto MD LAB BLOOD ORDERABLES Final Result Performing Organization Address [facility] Co de Phone Number [facility] [address] [place] [address] * (ABNORMAL) Basic metabolic panel (10/19/2024 8:25 AM EDT) Glucose, Plasma 191(H) 74 - 99 mg/dL 10/19/2024 9:12 AM EDT [facility] BUN, Plasma 18 8 - 23 mg/dL 10/19/2024 9:12 AM EDT [facility] Creatinine, Plasma 0.76 0.70 - 1.20 mg/dL 10/19/2024 9:12 AM EDT [facility] BUN/Creatinine Ratio 24 10/19/2024 9:12 AM EDT [facility] Sodium, Plasma 135(L) 136 - 145 mmol/L 10/19/2024 9:12 AM EDT [facility] Potassium, Plasma 4.1 3.6 - 4.9 mmol/L 10/19/2024 9:12 AM EDT [facility] Chloride, Plasma 104 97 - 107 mmol/L 10/19/2024 9:12 AM EDT [facility] CO2, Plasma 22 22 - 29 mmol/L 10/19/2024 9:12 AM EDT [facility] Anion Gap 9 6 - 16 mmol/L 10/19/2024 9:12 AM EDT [facility] Total Calcium, Plasma 8.4(L) 8.9 - 10.2 mg/dL 10/19/2024 9:12 AM EDT [facility] eGFRcr 99.7 mL/min/1.7 3m*2 10/19/2024 9:12 AM EDT [facility] Comment:Reported eGFRcr in m L/min/1.73m2 is based the CKD-EPI 2020 equation that does not use a race coefficient. Blood Venous blood specimen / Unknown Venipuncture / Unknown 10/19/2024 8:25 AM EDT 10/19/2024 8:43 AM EDT us Nirmal Cueto MD LAB BLOOD ORDERABLES Final Result [facility] [address] [place] [address] * (ABNORMAL) CBC W/O Differential (10/19/2024 8:25 AM EDT) WBC Count 14.10(H) 3.70 - 10.30 10*3/uL LAB HEMATOLOGY METHOD 10/19/2024 8:52 AM EDT [facility] RBC Count 2.61(L) 4.60 - 6.10 10*6/uL LAB HEMATOLOGY METHOD 10/19/2024 8:52 AM EDT [facility] HGB 8.0(L) 13.7 - 17.5 g/dL LAB HEMATOLOGY METHOD 10/19/2024 8:52 AM EDT [facility] HCT 24.3(L) 40.0 - 51.0 % LAB HEMATOLOGY METHOD 10/19/2024 8:52 AM EDT [facility] Platelet Count 318 155 - 369 10*3/uL LAB HEMATOLOGY METHOD 10/19/2024 8:52 AM EDT [facility] MCV 93 79 - 98 fL LAB HEMATOLOGY METHOD 10/19/2024 8:52 AM EDT [facility] MCH 30.7 26.0 - 32.0 pg LAB HEMATOLOGY METHOD 10/19/2024 8:52 AM EDT [facility] MCHC 32.9 30.7 - 35.5 g/dL LAB HEMATOLOGY METHOD 10/19/2024 8:52 AM EDT [facility] RDW 13.4 11.5 - 14.5 % LAB HEMATOLOGY METHOD 10/19/2024 8:52 AM EDT [facility] MPV 9.6 8.8 - 12.5 fL LAB HEMATOLOGY METHOD 10/19/2024 8:52 AM EDT [facility] nRBC 0.0 <=0.0 per 100 WBCs LAB HEMATOLOGY METHOD 10/19/2024 8:52 AM EDT [facility] Blood Venous blood specimen / Unknown Venipuncture / Unknown 10/19/2024 8:25 AM EDT 10/19/2024 8:44 AM EDT us Nirmal Cueto MD LAB BLOOD ORDERABLES Final Result [facility] [address] [place] [address] * (ABNORMAL) POCT glucose meter (10/19/2024 7:35 AM EDT) [facility] Signature POCT Glucose 187(H) 74 - 99 [...] Comment 10/19/2024 7:37 AM EDT [facility] Blending Supervisor ID KamranJob 10/20/19 7:37 AM EDT [facility] Device ID [id number] 10/19/2024 7:37 AM EDT [facility] Specimen Type POC Capillary 10/19/2024 7:37 AM EDT [facility] Blood Capillary blood specimen / Unknown 10/19/2024 7:35 AM EDT 10/19/2024 7:37 AM EDT us Terrell Gautam MD LAB POINT OF CARE TE ST DOCKED DEVICE UNSOLICITED RESULTS Final Result Performing Organization Address City/[facility] Co de Phone Number [facility] [address] [place] [address] * (ABNORMAL) POCT glucose meter (10/18/2024 7:22 PM EDT) [facility] POCT Glucose 178(H) 74 - 99 mg/dL [...] Comment 10/18/2024 7:24 PM EDT [facility] Blending Supervisor ID Mahesh Aldana 10/18/2024 7:24 PM EDT [facility] Device ID [id number] 10/18/2024 7:24 PM EDT [facility] Specimen Type POC Capillary 10/18/2024 7:24 PM EDT [facility] Blood Capillary blood specimen / Unknown 10/18/2024 7:22 PM EDT 10/18/2024 7:24 PM EDT Terrell Gautam MD LAB POINT OF CARE TE ST DOCKED DEVICE UNSOLICITED RESULTS Final Result Performing Organization Address City/[facility] Co de Phone Number [facility] [address] [place] [address] * (ABNORMAL) POCT glucose meter (10/18/2024 6:07 PM EDT) [facility] POCT Glucose 167(H) 74 - 99 mg/dL [...] 10/18/2024 6:09 PM EDT [facility] Blending Supervisor ID David Parks 10/18/2024 6:09 PM EDT [facility] Device ID [id number] 10/18/2024 6:09 PM EDT [facility] Specimen Type POC Capillary 10/18/2024 6:09 PM EDT [facility] Blood Capillary blood specimen / Unknown 10/18/2024 6:07 PM EDT 10/18/2024 6:09 PM EDT Terrell Gautam MD LAB POINT OF CARE TE ST DOCKED DEVICE UNSOLICITED RESULTS Final Result Performing Organization Address City/[facility] Co de Phone Number [facility] [address] [place] [address] * (ABNORMAL) POCT glucose meter (10/18/2024 11:56 AM EDT) [facility] POCT Glucose 233(H) 74 - 99 mg/dL [...] 10/21/2024 7:42 AM EDT [facility] Blending Supervisor ID Venessa Marcano 10/21/2024 7:42 AM EDT [facility] Device ID [id number] 10/21/2024 7:42 AM EDT [facility] Specimen Type POC Capillary 10/21/2024 7:42 AM EDT [facility] Blood Capillary blood specimen / Unknown 10/18/2024 11:56 AM EDT 10/21/2024 7:42 AM EDT us Terrell Gautam MD LAB POINT OF CARE TE ST DOCKED DEVICE UNSOLICITED RESULTS Final Result Performing Organization Address City/[facility]/ZIP Co de Phone Number [facility] [address] [place] [address] * (ABNORMAL) POCT glucose meter (10/18/2024 9:24 [...] Comment 10/21/2024 7:42 AM EDT [facility] Blending Supervisor ID Emilia Alonso 7:42 AM EDT [facility]ALTH[facility] LAB Device ID [id number] 10/21/2024 7:42 AM EDT [facility] Specimen Type POC Venous 10/21/2024 7:42 AM EDT [facility] Blood Venous blood specimen / Unknown 10/18/2024 9:24 AM EDT 10/21/2024 7:42 AM EDT Terrell Gautam MD LAB POINT OF CARE TE ST DOCKED DEVICE UNSOLICITED RESULTS Final Result [facility] [address] [place] [address] * (ABNORMAL) POCT glucose meter (10/18/2024 7:36 AM EDT) [facility] POCT Glucose 215(H) 74 - 99 mg/dL [...] Comment 10/18/2024 7:38 AM EDT [facility] Blending Supervisor ID Kizzy Godfrey 025 7:38 AM EDT [facility]ALTH[facility]ARE LAB Device ID [id number] 10/18/2024 7:38 AM EDT [facility] Specimen Type POC Capillary 10/18/2024 7:38 AM EDT [facility] Blood Capillary blood specimen / Unknown 10/18/2024 7:36 AM EDT 10/18/2024 7:38 AM EDT us Terrell Gautam MD LAB POINT OF CARE TE ST DOCKED DEVICE UNSOLICITED RESULTS Final Result [facility] [address] [place] [address] * (ABNORMAL) CBC (10/18/2024 2:09 AM EDT) WBC Count 16.71(H) 3.70 - 10.30 10*3/uL LAB HEMATOLOGY METHOD 10/18/2024 2:33 AM EDT [facility] RBC Count 2.78(L) 4.60 - 6.10 10*6/uL LAB HEMATOLOGY METHOD 10/18/2024 2:33 AM EDT [facility] HGB 8.5(L) 13.7 - 17.5 g/dL LAB HEMATOLOGY METHOD 10/18/2024 2:33 AM EDT [facility] HCT 25.7(L) 40.0 - 51.0 % LAB HEMATOLOGY METHOD 10/18/2024 2:33 AM EDT [facility] Platelet Count 324 155 - 369 10*3/uL LAB HEMATOLOGY METHOD 10/18/2024 2:33 AM EDT [facility] MCV 92 79 - 98 fL LAB HEMATOLOGY METHOD 10/18/2024 2:33 AM EDT [facility] MCH 30.6 26.0 - 32.0 pg LAB HEMATOLOGY METHOD 10/18/2024 2:33 AM EDT [facility] MCHC 33.1 30.7 - 35.5 g/dL LAB HEMATOLOGY METHOD 10/18/2024 2:33 AM EDT [facility] RDW 13.3 11.5 - 14.5 % LAB HEMATOLOGY METHOD 10/18/2024 2:33 AM EDT [facility] MPV 9.4 8.8 - 12.5 fL LAB HEMATOLOGY METHOD 10/18/2024 2:33 AM EDT [facility] nRBC 0.0 <=0.0 per 100 WBCs LAB HEMATOLOGY METHOD 10/18/2024 2:33 AM EDT [facility] Blood Venous blood specimen / Unknown Venipuncture / Unknown 10/18/2024 2:09 AM EDT 10/18/2024 2:25 AM EDT Nirmal Cueto MD LAB BLOOD ORDERABLES Final Result [facility] [address] [place] [address] * (ABNORMAL) Basic metabolic panel (10/18/2024 2:09 AM EDT) Pathologist [facility] Glucose, Plasma 206(H) 74 - 99 mg/dL 10/18/2024 2:53 AM EDT [facility] BUN, Plasma 24(H) 8 - 23 mg/dL 10/18/2024 2:53 AM EDT [facility] Creatinine, Plasma 1.17 0.70 - 1.20 mg/dL 10/18/2024 2:53 AM EDT [facility] BUN/Creatinine Ratio 21 10/18/2024 2:53 AM EDT [facility] Sodium, Plasma 136 136 - 145 mmol/L 10/18/2024 2:53 AM EDT [facility] Potassium, Plasma 4.8 3.6 - 4.9 mmol/L 10/18/2024 2:53 AM EDT [facility] Chloride, Plasma 104 97 - 107 mmol/L 10/18/2024 2:53 AM EDT [facility] CO2, Plasma 22 22 - 29 mmol/L 10/18/2024 2:53 AM EDT [facility] Anion Gap 10 6 - 16 mmol/L 10/18/2024 2:53 AM EDT [facility] Total Calcium, Plasma 8.5(L) 8.9 - 10.2 mg/dL 10/18/2024 2:53 AM EDT [facility] eGFRcr 69.2 mL/min/1.7 3m*2 10/18/2024 2:53 AM EDT [facility] Comment:Reported eGFRcr in m L/min/1.73m2 is based the CKD-EPI 2020 equation that does not use a race coefficient. Blood Venous blood specimen / Unknown Venipuncture / Unknown 10/18/2024 2:09 AM EDT 10/18/2024 2:25 AM EDT us Nirmal Cueto MD LAB BLOOD ORDERABLES Final Result Performing Organization Address [facility] Co de Phone Number [facility] [address] [place] [address] * (ABNORMAL) Magnesium (10/18/2024 2:09 AM EDT) Magnesium, Plasma 1.8(L) 1.9 - 2.4 mg/dL 10/18/2024 2:53 AM EDT [facility] Blood Venous blood specimen / Unknown Venipuncture / Unknown 10/18/2024 2:09 AM EDT 10/18/2024 2:25 AM EDT us Nirmal Cueto MD LAB BLOOD ORDERABLES Final Result Performing Organization Address [facility] Phone Number [facility] [address] [place] [address] * Phosphorus (10/18/2024 2:09 AM EDT) Phosphorus, Plasma 3.7 2.5 - 4.5 mg/dL 10/18/2024 2:53 AM EDT [facility] Blood Venous blood specimen / Unknown Venipuncture / Unknown 10/18/2024 2:09 AM EDT 10/18/2024 2:25 AM EDT us Nirmal Cueto MD LAB BLOOD ORDERABLES Final Result Performing Organization Address [facility] Co de Phone Number [facility] [address] [place] [address] * (ABNORMAL) Protime-INR (10/18/2024 2:09 AM EDT) Prothrombin Time 14.5(H) 12.0 - 14.3 sec LAB COAGULATION METHOD 10/18/2024 2:53 AM EDT [facility] INR 1.1 0.9 - 1.1 LAB COAGULATION METHOD 10/18/2024 2:53 AM EDT [facility] Blood Venous blood specimen / Unknown Venipuncture / Unknown 10/18/2024 2:09 AM EDT 10/18/2024 2:25 AM EDT Narrative [facility] - 10/18/2024 2:53 AM EDT OPTIMAL INR RANGES FOR PATIENT ON ORAL ANTICOAGULANT THERAPY Prevention of venous thromboembolism INR 2.0 to 3.0 In patients with heart disease: Atrial fibrillation INR 2.0 to 3.0 Valvular heart disease INR 2.0 to 3.0 Tissue heart valves INR 2.0 to 3.0 Mechanical prosthetic valves INR 2.5 to 3.5 Prevention of recurrent NM INR 2.5 to 3.5 us Nirmal Cueto MD LAB BLOOD ORDERABLES Final Result [facility] [address] [place] [address] * (ABNORMAL) POCT glucose meter (10/18/2024 2:08 AM EDT) [facility] POCT Glucose 202(H) 74 - 99 mg/dL [...] Comment 10/18/2024 2:10 AM EDT [facility] Blending Supervisor ID Jourdan Grimes II 10/18/2024 2:10 AM EDT [facility] Device ID [id number] 10/18/2024 2:10 AM EDT [facility] Specimen Type POC Capillary 10/18/2024 2:10 AM EDT [facility] Blood Capillary blood specimen / Unknown 10/18/2024 2:08 AM EDT 10/18/2024 2:10 AM EDT us Terrell Gautam MD LAB POINT OF CARE TE ST DOCKED DEVICE UNSOLICITED RESULTS Final Result [facility] [address] [place] [address] * (ABNORMAL) POCT glucose meter (10/17/2024 10:07 PM EDT) [facility] POCT Glucose 300(H) 74 - 99 mg/dL [...] Comment 10/17/2024 10:10 PM EDT [facility] Blending Supervisor ID Sukhjinder Grimes IIneth 10/17/2024 10:10 PM EDT [facility] Device ID [id number] 10/17/2024 10:10 PM EDT [facility] Specimen Type POC Capillary 10/17/2024 10:10 PM EDT [facility] Blood Capillary blood specimen / Unknown 10/17/2024 10:07 PM EDT 10/17/2024 10:10 PM EDT Terrell Gautam MD LAB POINT OF CARE TE ST DOCKED DEVICE UNSOLICITED RESULTS Final Result [facility] [address] [place] [address] * (ABNORMAL) POCT glucose meter (10/17/2024 8:07 PM EDT) [facility] POCT Glucose 391(H) 74 - 99 mg/dL [...] 10/17/2024 8:10 PM EDT [facility] Blending Supervisor ID Sukhjinder Grimes IIneth 10/17/2024 8:10 PM EDT [facility] Device ID [id number] 10/17/2024 8:10 PM EDT [facility] Specimen Type POC Capillary 10/17/2024 8:10 PM EDT [facility] Blood Capillary blood specimen / Unknown 10/17/2024 8:07 PM EDT 10/17/2024 8:10 PM EDT Terrell Gautam MD LAB POINT OF CARE TE ST DOCKED DEVICE UNSOLICITED RESULTS Final Result Performing Organization Address [facility] Co de Phone Number [facility] [address] [place] [address] * (ABNORMAL) POCT glucose meter (10/17/2024 4:01 [...] 10/17/2024 4:03 PM EDT [facility] Blending Supervisor ID Keisha Waller 10/17/2024 4:03 PM EDT [facility] LAB Device ID [id number] 10/17/2024 4:03 PM EDT [facility] Specimen Type POC Capillary 10/17/2024 4:03 PM EDT [facility] Blood Capillary blood specimen / Unknown 10/17/2024 4:01 PM EDT 10/17/2024 4:03 PM EDT us Terrell Gautam MD LAB POINT OF CARE TE ST DOCKED DEVICE UNSOLICITED RESULTS Final Result Performing Organization Address [facility] Co de Phone Number [facility] [address] [place] [address] * (ABNORMAL) POCT glucose meter (10/17/2024 1:25 [...] 10/17/2024 1:27 PM EDT [facility] Blending Supervisor ID Kizzy Godfrey 025 1:27 PM EDT [facility] LAB Device ID [id number] 10/17/2024 1:27 PM EDT [facility] Specimen Type POC Capillary 10/17/2024 1:27 PM EDT [facility] Blood Capillary blood specimen / Unknown 10/17/2024 1:25 PM EDT 10/17/2024 1:27 PM EDT Terrell Gautam MD LAB POINT OF CARE TE ST DOCKED DEVICE UNSOLICITED RESULTS Final Result Performing Organization Address City/[facility]/ZIP Co de Phone Number [facility] [address] [place] [address] * [place] Less than 1 Hour Intraoperative (10/17/2024 1:18 PM EDT) Narrative IMAGING - 10/17/2024 2:05 PM EDT Images were obtained for surgical purposes. See Terrell Gautam's surgical note in the patient's chart for the findings. Terrell Gautam MD IMG FLUOROSCOPY PROCEDURES Fi nal Result Performing Organization Address City/[facility] Co de Phone Number IMAGING * POCT ACT (10/17/2024 12:23 PM EDT) ACT+ (HIGH RANGE) 211 68 - 600 Seconds 10/29/2024 7:28 AM EDT [facility] Blending Supervisor ID Donna Mcmillan 10/29/2024 7:28 AM EDT [facility] ACT Device ID [id number] 10/29/2024 7:28 AM EDT [facility] Comment 10/29/2024 7:28 AM EDT [facility] Comment: ACT performed by [...] [facility] [address] LAB [address] [place] [address] * (ABNORMAL) Blood gas, arterial (10/17/2024 11:48 AM EDT) pH, Arterial 7.34 7.31 - 7.42 LAB HEMATOLOGY METHOD 10/17/2024 11:54 AM EDT [facility] pCO2, Arterial 41 32 - 45 mmHg LAB HEMATOLOGY METHOD 10/17/2024 11:54 AM EDT [facility] pO2, Arterial 202 >80 mmHg LAB HEMATOLOGY METHOD 10/17/2024 11:54 AM EDT [facility] SO2, Measured, Arterial 100(H) 94 - 98 % LAB HEMATOLOGY METHOD 10/17/2024 11:54 AM EDT [facility] Base Excess, Arterial -3.2(L) -2.0 - 3.0 mmol/L LAB HEMATOLOGY METHOD 10/17/2024 11:54 AM EDT [facility] Bicarbonate, Calculated, Arterial 22 22 - 26 mmol/L LAB HEMATOLOGY METHOD 10/17/2024 11:54 AM EDT [facility] Hematocrit, Whole Blood 28.6(L) 40.0 - 51.0 % LAB HEMATOLOGY METHOD 10/17/2024 11:54 AM EDT [facility] Sodium, Whole Blood 137 136 - 145 mmol/L LAB HEMATOLOGY METHOD 10/17/2024 11:54 AM EDT [facility] Potassium, Whole Blood 4.5 3.6 - 4.9 mmol/L LAB HEMATOLOGY METHOD 10/17/2024 11:54 AM EDT [facility] Chloride, Whole Blood 112(H) 97 - 107 mmol/L LAB HEMATOLOGY METHOD 10/17/2024 11:54 AM EDT [facility] Glucose, Whole Blood 201(H) 74 - 99 mg/dL LAB HEMATOLOGY METHOD 10/17/2024 11:54 AM EDT [facility] Ionized Calcium, Whole Blood 4.8 4.6 - 5.1 mg/dL LAB HEMATOLOGY METHOD 10/17/2024 11:54 AM EDT [facility] Lactate, Arterial, Whole Blood 2.3(H) 0.5 - 1.6 mmol/L LAB HEMATOLOGY METHOD 10/17/2024 11:54 AM EDT [facility] Blood Arterial blood specimen / Unknown Arterial Puncture / Unknown 10/17/2024 11:48 AM EDT 10/17/2024 11:53 AM EDT us Jenna Lopez CRNA LAB BLOOD ORDERABLES Final Re sult [facility] [address] [place] [address] * POCT ACT (10/17/2024 11:41 AM EDT) ACT+ (HIGH RANGE) 175 68 - 600 Seconds 10/29/2024 7:28 AM EDT [facility] LAB Blending Supervisor ID Oneyda Alicea 10/29/2024 7:28 AM EDT [facility] ACT Device ID [id number] 10/29/2024 7:28 AM EDT [facility] Comment 10/29/2024 7:28 AM EDT [facility] Comment: ACT performed by [...] RESULTS Final Result [facility] [address] LAB [address] [place] [address] * POCT ACT (10/17/2024 11:11 AM EDT) [facility] ACT+ (HIGH RANGE) 252 68 - 600 Seconds 10/29/2024 7:28 AM EDT [facility] LAB Blending Supervisor ID Donna Mcmillan 10/29/2024 7:28 AM EDT [facility] ACT Device ID [id number] 10/29/2024 7:28 AM EDT [facility] Comment 10/29/2024 7:28 AM EDT [facility] Comment: ACT performed by [...] UNSOLICITED RESULTS Final Result [facility] [address] [place] [address] [place] [address] * (ABNORMAL) Blood gas, arterial (10/17/2024 10:46 AM EDT) Pathologist [facility] pH, Arterial 7.35 7.31 - 7.42 LAB HEMATOLOGY METHOD 10/17/2024 10:56 AM EDT [facility] pCO2, Arterial 42 32 - 45 mmHg LAB HEMATOLOGY METHOD 10/17/2024 10:56 AM EDT [facility] pO2, Arterial 161 >80 mmHg LAB HEMATOLOGY METHOD 10/17/2024 10:56 AM EDT [facility] SO2, Measured, Arterial 100(H) 94 - 98 % LAB HEMATOLOGY METHOD 10/17/2024 10:56 AM EDT [facility] Base Excess, Arterial -2.2(L) -2.0 - 3.0 mmol/L LAB HEMATOLOGY METHOD 10/17/2024 10:56 AM EDT [facility] Bicarbonate, Calculated, Arterial 23 22 - 26 mmol/L LAB HEMATOLOGY METHOD 10/17/2024 10:56 AM EDT [facility] Hematocrit, Whole Blood 29.9(L) 40.0 - 51.0 % LAB HEMATOLOGY METHOD 10/17/2024 10:56 AM EDT [facility] Sodium, Whole Blood 138 136 - 145 mmol/L LAB HEMATOLOGY METHOD 10/17/2024 10:56 AM EDT [facility] Potassium, Whole Blood 4.0 3.6 - 4.9 mmol/L LAB HEMATOLOGY METHOD 10/17/2024 10:56 AM EDT [facility] Chloride, Whole Blood 110(H) 97 - 107 mmol/L LAB HEMATOLOGY METHOD 10/17/2024 10:56 AM EDT [facility] Glucose, Whole Blood 174(H) 74 - 99 mg/dL LAB HEMATOLOGY METHOD 10/17/2024 10:56 AM EDT [facility] Ionized Calcium, Whole Blood 5.1 4.6 - 5.1 mg/dL LAB HEMATOLOGY METHOD 10/17/2024 10:56 AM EDT [facility] Lactate, Arterial, Whole Blood 1.4 0.5 - 1.6 mmol/L LAB HEMATOLOGY METHOD 10/17/2024 10:56 AM EDT [facility] Blood Arterial blood specimen / Unknown Arterial Puncture / Unknown 10/17/2024 10:46 AM EDT 10/17/2024 10:54 AM EDT us Jenna Lopez [employer] LAB BLOOD ORDERABLES Final Re sult [facility] [address] [place] [address] * POCT ACT (10/17/2024 10:37 AM EDT) ACT+ (HIGH RANGE) 206 68 - 600 Seconds 10/29/2024 7:28 AM EDT [facility] Blending Supervisor ID Mcmillan Donna Maya 10/29/2024 7:28 AM EDT [facility] ACT Device ID [id number] 10/29/2024 7:28 AM EDT [facility] Comment 10/29/2024 7:28 AM EDT [facility] Comment: ACT performed by [...] [facility] [address] [place] [address] * Surgical Pathology Exam (10/17/2024 10:27 AM EDT) Case Report Surgical Pathology Case: [id number] Authorizing Provider: Terrell Gautam MD Collected: 10/17/2024 1027 Ordering Location: [facility]PERATING RO[facility] Received: 10/17/2024 1325 Pathologist: Haydee Osborne MD Specimen: Other (specify site), left common femoral plaque 10/21/2024 10:16 AM EDT [facility] Final Diagnosis A. LEFT COMMON FEMORAL PLAQUE, EXCISION: - CALCIFIED PLAQUE 10/21/2024 10:16 AM EDT [facility] at 1016 EDT Clinical Information Critical limb ischemia of left lower extremity [I70.222] 10/21/2024 10:16 AM EDT [facility] Gross Description A. LEFT COMMON FEMORAL PLAQUE Received in formalin labeled l eft common femoral plaque , is one aggregate of red-gabriel hard portions of plaque measuring 3.7 x 2.5 x 0.9 cm. The specimen is serially sectioned and community relations representative sections are submitted in cassette A1. Cold Time: <1m Kenia Aceves 10/21/2024 10:16 AM EDT [facility] Note: A resident was involved in the service. I attest I examined the relevant preparations for the specimens and confirmed the diagnosis or interpretation. 10/21/2024 10:16 AM EDT [facility] Tissue Topography unknown / Unknown 10/17/2024 10:27 AM EDT 10/17/2024 1:25 PM EDT Comment:Pre-op diagnosis: Critical limb ischemia of left lower extremity [I70.222] Terrell Gautam MD LAB PATHOLOGY ORDERABLES Gwen l Result Performing Organization Address City/[facility]/ZIP Co de Phone Number [facility] [address] [place] [address] * POCT ACT (10/17/2024 10:03 AM EDT) ACT+ (HIGH RANGE) 244 68 - 600 Seconds 10/29/2024 7:28 AM EDT [facility] Blending Supervisor ID Donna Mcmillan 10/29/2024 7:28 AM EDT [facility] ACT Device ID [id number] 10/29/2024 7:28 AM EDT [facility] Comment 10/29/2024 7:28 AM EDT [facility] Comment: ACT performed by [...] Co de Phone Number HEALTHCARE LAB [address] LAB [address] [place] [address] * (ABNORMAL) Blood gas, arterial (10/17/2024 9:45 AM EDT) pH, Arterial 7.37 7.31 - 7.42 LAB HEMATOLOGY METHOD 10/17/2024 9:55 AM EDT [facility] pCO2, Arterial 43 32 - 45 mmHg LAB HEMATOLOGY METHOD 10/17/2024 9:55 AM EDT [facility] pO2, Arterial 177 >80 mmHg LAB HEMATOLOGY METHOD 10/17/2024 9:55 AM EDT [facility] SO2, Measured, Arterial 100(H) 94 - 98 % LAB HEMATOLOGY METHOD 10/17/2024 9:55 AM EDT [facility] Base Excess, Arterial -0.5 -2.0 - 3.0 mmol/L LAB HEMATOLOGY METHOD 10/17/2024 9:55 AM EDT [facility] Bicarbonate, Calculated, Arterial 25 22 - 26 mmol/L LAB HEMATOLOGY METHOD 10/17/2024 9:55 AM EDT [facility] Hematocrit, Whole Blood 30.0(L) 40.0 - 51.0 % LAB HEMATOLOGY METHOD 10/17/2024 9:55 AM EDT [facility] Sodium, Whole Blood 137 136 - 145 mmol/L LAB HEMATOLOGY METHOD 10/17/2024 9:55 AM EDT [facility] Potassium, Whole Blood 4.3 3.6 - 4.9 mmol/L LAB HEMATOLOGY METHOD 10/17/2024 9:55 AM EDT [facility] Chloride, Whole Blood 108(H) 97 - 107 mmol/L LAB HEMATOLOGY METHOD 10/17/2024 9:55 AM EDT [facility] Glucose, Whole Blood 191(H) 74 - 99 mg/dL LAB HEMATOLOGY METHOD 10/17/2024 9:55 AM EDT [facility] Ionized Calcium, Whole Blood 5.0 4.6 - 5.1 mg/dL LAB HEMATOLOGY METHOD 10/17/2024 9:55 AM EDT [facility] Lactate, Arterial, Whole Blood 1.3 0.5 - 1.6 mmol/L LAB HEMATOLOGY METHOD 10/17/2024 9:55 AM EDT [facility] Blood Arterial blood specimen / Unknown Arterial Line / Unknown 10/17/2024 9:45 AM EDT 10/17/2024 9:52 AM EDT us Jenna Lopez CRNA LAB BLOOD ORDERABLES Final Re sult [facility] [address] [place] [address] * (ABNORMAL) Blood gas, arterial (10/17/2024 8:47 AM EDT) pH, Arterial 7.37 7.31 - 7.42 LAB HEMATOLOGY METHOD 10/17/2024 8:59 AM EDT [facility] pCO2, Arterial 43 32 - 45 mmHg LAB HEMATOLOGY METHOD 10/17/2024 8:59 AM EDT [facility] pO2, Arterial 205 >80 mmHg LAB HEMATOLOGY METHOD 10/17/2024 8:59 AM EDT [facility] SO2, Measured, Arterial 100(H) 94 - 98 % LAB HEMATOLOGY METHOD 10/17/2024 8:59 AM EDT [facility] Base Excess, Arterial -0.3 -2.0 - 3.0 mmol/L LAB HEMATOLOGY METHOD 10/17/2024 8:59 AM EDT [facility] Bicarbonate, Calculated, Arterial 25 22 - 26 mmol/L LAB HEMATOLOGY METHOD 10/17/2024 8:59 AM EDT [facility] Hematocrit, Whole Blood 31.3(L) 40.0 - 51.0 % LAB HEMATOLOGY METHOD 10/17/2024 8:59 AM EDT [facility] Sodium, Whole Blood 138 136 - 145 mmol/L LAB HEMATOLOGY METHOD 10/17/2024 8:59 AM EDT [facility] Potassium, Whole Blood 4.0 3.6 - 4.9 mmol/L LAB HEMATOLOGY METHOD 10/17/2024 8:59 AM EDT [facility] Chloride, Whole Blood 108(H) 97 - 107 mmol/L LAB HEMATOLOGY METHOD 10/17/2024 8:59 AM EDT [facility] Glucose, Whole Blood 162(H) 74 - 99 mg/dL LAB HEMATOLOGY METHOD 10/17/2024 8:59 AM EDT [facility] Ionized Calcium, Whole Blood 5.2(H) 4.6 - 5.1 mg/dL LAB HEMATOLOGY METHOD 10/17/2024 8:59 AM EDT [facility] Lactate, Arterial, Whole Blood 1.7(H) 0.5 - 1.6 mmol/L LAB HEMATOLOGY METHOD 10/17/2024 8:59 AM EDT [facility] Blood Arterial blood specimen / Unknown Arterial Puncture / Unknown 10/17/2024 8:47 AM EDT 10/17/2024 8:58 AM EDT us Jenna Lopez CRNA LAB BLOOD ORDERABLES Final Re sult Performing Organization Address City/[facility]/ZIP Co de Phone Number [facility] [address] [place] [address] * POCT ACT (10/17/2024 8:46 AM EDT) ACT+ (HIGH RANGE) 101 68 - 600 Seconds 10/29/2024 7:28 AM EDT [facility] Blending Supervisor ID Donna Mcmillan 10/29/2024 7:28 AM EDT [facility] ACT Device ID [id number] 10/29/2024 7:28 AM EDT [facility] Comment 10/29/2024 7:28 AM EDT [facility] Comment: ACT performed by [...] Organization Address [facility] Co de Phone Number [facility] [address] LAB [address] [place] [address] * Type and Screen (10/17/2024 7:19 AM [...] Organization Address [facility] Co de Phone Number BLOOD BANK [address] [place] [address], * (ABNORMAL) POCT glucose meter (10/17/2024 6:44 AM EDT) POCT Glucose 178(H) 74 - 99 mg/dL 10/17/2024 6:49 AM EDT [facility] Comment:Accuracy of a glucos e result [...] for testing. Comment 10/17/2024 6:49 AM EDT [facility] Blending Supervisor ID Hunter Burroughs 10/18/19 6:49 AM EDT [facility] Device ID [id number] 10/17/2024 6:49 AM EDT [facility] Specimen Type POC Capillary 10/17/2024 6:49 AM EDT [facility] Blood Capillary blood specimen / Unknown 10/17/2024 6:44 AM EDT 10/17/2024 6:49 AM EDT us Terrell Gautam MD LAB POINT OF CARE TE ST DOCKED DEVICE UNSOLICITED RESULTS Final Result Performing Organization Address [facility] Co de Phone Number [facility] [address] [place] [address] documented in this encounter Visit Diagnoses Diagnosis [...] - Reason: [id number] (Given - Provider: Keisha Wallre RN - Comment: The patient is post [...] Mao, CHRISTIAN) [phone] (Given - Provider: Keyla hCow) Povidone-Iodine 5 % swab solution 1 Application [...] documented as of this encounter Care Teams Home Theatre Technician Relationship Specialty Start Date End Date Asad Victor MD [address] [place] [address] PCP - General 10/07/22 documented as of this encounter
--- OUTSIDE RECORDS SUMMARY | 2024-11-05 21:45 | XMS_ITS | Encounter Summary ---
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 11/13/2024 8:24 AM EDT [facility] Blood Capillary blood specimen / Unknown 11/13/2024 8:23 AM EDT 11/13/2024 8:24 AM EDT Nathaly Nowak MD LAB POINT OF CARE TE ST DOCKED DEVICE UNSOLICITED RESULTS Final Result Performing Organization Address City/[facility]/ZIP Co de Phone Number [facility] [address] [place] [address] * (ABNORMAL) Phosphorus, Plasma (11/13/2024 6:37 AM EDT) Phosphorus, Plasma 1.7(L) 2.5 - 4.5 mg/dL 11/13/2024 7:16 AM EDT [facility] Blood Venous blood specimen / Unknown Venipuncture / Unknown 11/13/2024 6:37 AM EDT 11/13/2024 6:44 AM EDT Nathaly Nowak MD LAB BLOOD ORDERABLES Final Resu lt Performing Organization Address [facility] Co de Phone Number [facility] [address] [place] [address] * Magnesium, Plasma (11/13/2024 6:37 AM EDT) Magnesium, Plasma 2.0 1.9 - 2.4 mg/dL 11/13/2024 7:16 AM EDT [facility] Blood Venous blood specimen / Unknown Venipuncture / Unknown 11/13/2024 6:37 AM EDT 11/13/2024 6:44 AM EDT us Nathaly Nowak MD LAB BLOOD ORDERABLES Final Resu lt Performing Organization Address City/[facility]/ZIP Co de Phone Number [facility] [address] [place] [address] * (ABNORMAL) CBC W/O Differential (11/13/2024 6:37 AM EDT) WBC Count 11.72(H) 3.70 - 10.30 10*3/uL LAB HEMATOLOGY METHOD 11/13/2024 6:51 AM EDT [facility] RBC Count 2.88(L) 4.60 - 6.10 10*6/uL LAB HEMATOLOGY METHOD 11/13/2024 6:51 AM EDT [facility] HGB 8.5(L) 13.7 - 17.5 g/dL LAB HEMATOLOGY METHOD 11/13/2024 6:51 AM EDT [facility] HCT 26.4(L) 40.0 - 51.0 % LAB HEMATOLOGY METHOD 11/13/2024 6:51 AM EDT [facility] Platelet Count 398(H) 155 - 369 10*3/uL LAB HEMATOLOGY METHOD 11/13/2024 6:51 AM EDT [facility] MCV 92 79 - 98 fL LAB HEMATOLOGY METHOD 11/13/2024 6:51 AM EDT [facility] MCH 29.5 26.0 - 32.0 pg LAB HEMATOLOGY METHOD 11/13/2024 6:51 AM EDT [facility] MCHC 32.2 30.7 - 35.5 g/dL LAB HEMATOLOGY METHOD 11/13/2024 6:51 AM EDT [facility] RDW 13.6 11.5 - 14.5 % LAB HEMATOLOGY METHOD 11/13/2024 6:51 AM EDT [facility] MPV 8.9 8.8 - 12.5 fL LAB HEMATOLOGY METHOD 11/13/2024 6:51 AM EDT [facility] nRBC 0.0 <=0.0 per 100 WBCs LAB HEMATOLOGY METHOD 11/13/2024 6:51 AM EDT [facility] Blood Venous blood specimen / Unknown Venipuncture / Unknown 11/13/2024 6:37 AM EDT 11/13/2024 6:44 AM EDT us Nathaly Nowak MD LAB BLOOD ORDERABLES Final Resu lt [facility] [address] [place] [address] * (ABNORMAL) Basic Metabolic Panel, Plasma (11/13/2024 6:37 AM EDT) Glucose, Plasma 200(H) 74 - 99 mg/dL 11/13/2024 7:16 AM EDT [facility] BUN, Plasma 10 8 - 23 mg/dL 11/13/2024 7:16 AM EDT [facility] Creatinine, Plasma 0.68(L) 0.70 - 1.20 mg/dL 11/13/2024 7:16 AM EDT [facility] BUN/Creatinine Ratio 15 11/13/2024 7:16 AM EDT [facility] Sodium, Plasma 135(L) 136 - 145 mmol/L 11/13/2024 7:16 AM EDT [facility] Potassium, Plasma 3.9 3.6 - 4.9 mmol/L 11/13/2024 7:16 AM EDT [facility] Chloride, Plasma 107 97 - 107 mmol/L 11/13/2024 7:16 AM EDT [facility] CO2, Plasma 21(L) 22 - 29 mmol/L 11/13/2024 7:16 AM EDT [facility] Anion Gap 7 6 - 16 mmol/L 11/13/2024 7:16 AM EDT [facility] Total Calcium, Plasma 8.1(L) 8.9 - 10.2 mg/dL 11/13/2024 7:16 AM EDT [facility] eGFRcr 103.2 mL/min/1.7 3m*2 11/13/2024 7:16 AM EDT [facility] Comment:Reported eGFRcr in m L/min/1.73m2 is based the CKD-EPI 2020 equation that does not use a race coefficient. Blood Venous blood specimen / Unknown Venipuncture / Unknown 11/13/2024 6:37 AM EDT 11/13/2024 6:44 AM EDT us Nathaly Nowak MD LAB BLOOD ORDERABLES Final Resu lt [facility] [address] [place] [address] * (ABNORMAL) POCT glucose meter (11/12/2024 8:27 PM EDT) [facility] POCT Glucose 175(H) 74 - 99 [...] Comment 11/12/2024 8:29 PM EDT [facility] First Line Production Supervisor ID Zabrina Nelda Chris 11/13/19 8:29 PM EDT [facility] Device ID [id number] 11/12/2024 8:29 PM EDT [facility] Specimen Type POC Capillary 11/12/2024 8:29 PM EDT [facility] Blood Capillary blood specimen / Unknown 11/12/2024 8:27 PM EDT 11/12/2024 8:29 PM EDT Nathaly Nowak MD LAB POINT OF CARE TE ST DOCKED DEVICE UNSOLICITED RESULTS Final Result [facility] [address] [place] [address] * (ABNORMAL) POCT glucose meter (11/12/2024 5:08 PM EDT) [facility] POCT Glucose 157(H) 74 - 99 [...] 11/12/2024 5:10 PM EDT [facility] First Line Production Supervisor ID Wade Feliciano 5:10 PM EDT [facility] Device ID [id number] 11/12/2024 5:10 PM EDT [facility] Specimen Type POC Capillary 11/12/2024 5:10 PM EDT [facility] Blood Capillary blood specimen / Unknown 11/12/2024 5:08 PM EDT 11/12/2024 5:10 PM EDT Nathaly Nowak MD LAB POINT OF CARE TE ST DOCKED DEVICE UNSOLICITED RESULTS Final Result Performing Organization Address City/[facility]/ZIP Co de Phone Number [facility] [address] [place] [address] * (ABNORMAL) POCT glucose meter (11/12/2024 12:36 PM EDT) [facility] POCT Glucose 224(H) 74 - 99 mg/dL 11/12/2024 12:38 PM EDT [facility] Comment:Accuracy of a [...] Comment 11/12/2024 12:38 PM EDT [facility] First Line Production Supervisor ID Wade Feliciano 12:38 PM EDT [facility] Device ID [id number] 11/12/2024 12:38 PM EDT [facility] Specimen Type POC Capillary 11/12/2024 12:38 PM EDT [facility] Blood Capillary blood specimen / Unknown 11/12/2024 12:36 PM EDT 11/12/2024 12:38 PM EDT Nathaly Nowak MD LAB POINT OF CARE TE ST DOCKED DEVICE UNSOLICITED RESULTS Final Result Performing Organization Address City/[facility]/ZIP Co de Phone Number [facility] [address] [place] [address] * Clostridiodes (Clostridium) difficile PCR (11/12/2024 9:50 AM EDT) [facility] C difficile PCR toxin B gene DNA Result Not Detected Not Detected 11/12/2024 11:54 AM EDT [facility] Stool Rectum structure / Unknown Non-blood Collection / Unknown 11/12/2024 9:50 AM EDT 11/12/2024 10:04 AM EDT Narrative [facility] - 11/12/2024 11:54 AM EDT This test is FDA approved for use with liquid stool specimens. This test is used for clinical purposes. It should not be regarded as investigational or for research. This laboratory is certified under the Clinical Laboratory Improvement Amendments of 1988 (CLIA-88) as qualified to perform high complexity clinical laboratory testing. us Nathaly Nowak MD LAB MICROBIOLOGY - GENERAL ORDE [facility] Final Result [facility] [address] [place] [address] * Comprehensive GI Panel by PCR (11/12/2024 9:50 AM EDT) Campylobacter PCR Result Not Detected Not Detected 11/12/2024 2:47 PM EDT [facility] Plesiomonas shigelloides PCR Result Not Detected Not Detected 11/12/2024 2:47 PM EDT [facility] Salmonella PCR Result Not Detected Not Detected 11/12/2024 2:47 PM EDT [facility] Vibrio species PCR Result Not Detected Not Detected 11/12/2024 2:47 PM EDT [facility] Vibrio cholerae PCR Result Not Detected Not Detected 11/12/2024 2:47 PM EDT [facility] Yersinia enterocolitica PCR Result Not Detected Not Detected 11/12/2024 2:47 PM EDT [facility] Enteroaggregative E. coli (EAEC) PCR Result Not Detected Not Detected 11/12/2024 2:47 PM EDT [facility] Enteropathogenic E. coli (EPEC) PCR Result Not Detected Not Detected 11/12/2024 2:47 PM EDT [facility] Enterotoxigenic E. coli (ETEC) lt/st PCR Result Not Detected Not Detected 11/12/2024 2:47 PM EDT [facility] Shiga-like Toxin-Producing E.coli (STEC) stx1/stx2 PCR Resu Not Detected Not Detected 11/12/2024 2:47 PM EDT [facility] E coli 0157 PCR Result Not Detected Not Detected 11/12/2024 2:47 PM EDT [facility] Shigella/Enteroinvas tam E. coli (EIEC) PCR Result Not Detected Not Detected 11/12/2024 2:47 PM EDT [facility] Cryptosporidium PCR Result Not Detected Not Detected 11/12/2024 2:47 PM EDT [facility] Cyclospora cayetanensis PCR Result Not Detected Not Detected 11/12/2024 2:47 PM EDT [facility] Entamoeba histolytica PCR Result Not Detected Not Detected 11/12/2024 2:47 PM EDT [facility] Giardia duodenalis (aka Giardia lamblia) PCR Result Not Detected Not Detected 11/12/2024 2:47 PM EDT [facility] Adenovirus F 40/41 PCR Result Not Detected Not Detected 11/12/2024 2:47 PM EDT [facility] Astrovirus PCR Result Not Detected Not Detected 11/12/2024 2:47 PM EDT [facility] Norovirus GI/GII PCR Result Not Detected Not Detected 11/12/2024 2:47 PM EDT [facility] Rotavirus A PCR Result Not Detected Not Detected 11/12/2024 2:47 PM EDT [facility] Sapovirus PCR Result Not Detected Not Detected 11/12/2024 2:47 PM EDT [facility] Stool Rectum structure / Unknown Non-blood Collection / Unknown 11/12/2024 9:50 AM EDT 11/12/2024 10:04 AM EDT [facility] - 11/12/2024 2:47 PM EDT This [...] Nowak MD LAB MICROBIOLOGY - GENERAL ORDE [facility] Final Result Performing Organization Address [facility] Co de Phone Number [facility] [address] [place] [address] * C-reactive protein (11/12/2024 9:48 AM EDT) [facility] CRP, Plasma <3.0 <=8.0 mg/L 11/12/2024 10:28 AM EDT [facility] Blood Venous blood specimen / Unknown Venipuncture / Unknown 11/12/2024 9:48 AM EDT 11/12/2024 9:59 AM EDT Narrative [facility] - 11/12/2024 10:28 AM EDT This CRP test is appropriate for assessment of infection, systemic inflammation and/or tissue injury. To assess cardiovascular disease risk order high sensitivity CRP (CRPH). Nathaly Nowak MD LAB BLOOD ORDERABLES Final Resu lt Performing Organization Address [facility] de Phone Number [facility] [address] [place] [address] * (ABNORMAL) POCT glucose meter (11/12/2024 8:20 AM EDT) [facility] POCT Glucose 138(H) 74 - 99 mg/dL 11/12/2024 8:21 AM EDT [facility] Comment:Accuracy of a glucos [...] for testing. Comment 11/12/2024 8:21 AM EDT [facility] First Line Production Supervisor ID Wade Feliciano 08/19/202 5 8:21 AM EDT [facility] Device ID [id number] 11/12/2024 8:21 AM EDT [facility] Specimen Type POC Capillary 11/12/2024 8:21 AM EDT [facility] Blood Capillary blood specimen / Unknown 11/12/2024 8:20 AM EDT 11/12/2024 8:21 AM EDT Nathaly Nowak MD LAB POINT OF CARE TE ST DOCKED DEVICE UNSOLICITED RESULTS Final Result Performing Organization Address City/[facility] Co de Phone Number [facility] [address] [place] [address] * (ABNORMAL) POCT glucose meter (11/11/2024 8:18 PM EDT) [facility] POCT Glucose 248(H) 74 - 99 [...] Comment 11/11/2024 8:20 PM EDT [facility] First Line Production Supervisor ID Nelda Gerber 11/12/19 8:20 PM EDT [facility] Device ID [id number] 11/11/2024 8:20 PM EDT [facility] Specimen Type POC Capillary 11/11/2024 8:20 PM EDT [facility] Blood Capillary blood specimen / Unknown 11/11/2024 8:18 PM EDT 11/11/2024 8:20 PM EDT us Nathaly Nowak MD LAB POINT OF CARE TE ST DOCKED DEVICE UNSOLICITED RESULTS Final Result Performing Organization Address City/[facility] Co de Phone Number [facility] [address] [place] [address] * (ABNORMAL) POCT glucose meter (11/11/2024 5:59 [...] 11/11/2024 6:01 PM EDT [facility] First Line Production Supervisor ID Wade Feliciano 6:01 PM EDT [facility] Device ID [id number] 11/11/2024 6:01 PM EDT [facility] Specimen Type POC Capillary 11/11/2024 6:01 PM EDT [facility] Blood Capillary blood specimen / Unknown 11/11/2024 5:59 PM EDT 11/11/2024 6:01 PM EDT Nathaly Nowak MD LAB POINT OF CARE TE ST DOCKED DEVICE UNSOLICITED RESULTS Final Result [facility] [address] [place] [address] * POCT glucose meter (11/11/2024 5:20 PM EDT) [facility] POCT Glucose 84 74 - 99 mg/dL [...] 11/11/2024 5:22 PM EDT [facility] First Line Production Supervisor ID Wade Feliciano 5:22 PM EDT [facility] Device ID [id number] 11/11/2024 5:22 PM EDT [facility] Specimen Type POC Capillary 11/11/2024 5:22 PM EDT [facility] Blood Capillary blood specimen / Unknown 11/11/2024 5:20 PM EDT 11/11/2024 5:22 PM EDT us Nathaly Nowak MD LAB POINT OF CARE TE ST DOCKED DEVICE UNSOLICITED RESULTS Final Result [facility] [address] [place] [address] * [place] NEGATIVE PRESSURE WOUND THERAPY DME >50 SQ [...] POCT glucose meter (11/11/2024 12:08 PM EDT) POCT Glucose 226(H) 74 - 99 mg/dL 11/11/2024 12:10 PM EDT [facility] Comment:Accuracy of a glucos e result [...] for testing. Comment 11/11/2024 12:10 PM EDT [facility] First Line Production Supervisor ID BradenWade 12:10 PM EDT [facility] Device ID [id number] 11/11/2024 12:10 PM EDT [facility] Specimen Type POC Capillary 11/11/2024 12:10 PM EDT [facility] Blood Capillary blood specimen / Unknown 11/11/2024 12:08 PM EDT 11/11/2024 12:10 PM EDT Nathaly Nowak MD LAB POINT OF CARE TE ST DOCKED DEVICE UNSOLICITED RESULTS Final Result [facility] [address] [place] [address] * (ABNORMAL) POCT glucose meter (11/11/2024 9:08 [...] Comment 11/11/2024 9:09 AM EDT [facility] First Line Production Supervisor ID Wade Feliciano 9:09 AM EDT [facility] Device ID [id number] 11/11/2024 9:09 AM EDT [facility] Specimen Type POC Capillary 11/11/2024 9:09 AM EDT [facility] Blood Capillary blood specimen / Unknown 11/11/2024 9:08 AM EDT 11/11/2024 9:09 AM EDT Nathaly Nowak MD LAB POINT OF CARE TE ST DOCKED DEVICE UNSOLICITED RESULTS Final Result [facility] [address] [place] [address] * POCT glucose meter (11/11/2024 8:27 AM EDT) POCT Glucose 87 74 - 99 mg/dL 11/11/2024 8:28 AM EDT [facility] Comment:Accuracy of [...] Comment 11/11/2024 8:28 AM EDT [facility] First Line Production Supervisor ID Wade Feliciano 8:28 AM EDT [facility] Device ID [id number] 11/11/2024 8:28 AM EDT [facility] Specimen Type POC Capillary 11/11/2024 8:28 AM EDT [facility] Blood Capillary blood specimen / Unknown 11/11/2024 8:27 AM EDT 11/11/2024 8:28 AM EDT us Nathaly Nowak MD LAB POINT OF CARE TE ST DOCKED DEVICE UNSOLICITED RESULTS Final Result Performing Organization Address City/State/[facility] Co de Phone Number [facility] [address] [place] [address] * (ABNORMAL) Basic Metabolic Panel, Plasma (11/11/2024 1:12 AM EDT) Glucose, Plasma 122(H) 74 - 99 mg/dL 11/11/2024 1:12 AM EDT [facility] BUN, Plasma 10 8 - 23 mg/dL 11/11/2024 1:12 AM EDT [facility] Creatinine, Plasma 0.82 0.70 - 1.20 mg/dL 11/11/2024 1:12 AM EDT [facility] BUN/Creatinine Ratio 12 11/11/2024 1:12 AM EDT [facility] Sodium, Plasma 137 136 - 145 mmol/L 11/11/2024 1:12 AM EDT [facility] Potassium, Plasma 3.9 3.6 - 4.9 mmol/L 11/11/2024 1:12 AM EDT [facility] Chloride, Plasma 110(H) 97 - 107 mmol/L 11/11/2024 1:12 AM EDT [facility] CO2, Plasma 20(L) 22 - 29 mmol/L 11/11/2024 1:12 AM EDT [facility] Anion Gap 7 6 - 16 mmol/L 11/11/2024 1:12 AM EDT [facility] Total Calcium, Plasma 7.6(L) 8.9 - 10.2 mg/dL 11/11/2024 1:12 AM EDT [facility] eGFRcr 97.5 mL/min/1.7 3m*2 11/11/2024 1:12 AM EDT [facility] Comment:Reported eGFRcr in m L/min/1.73m2 is based the CKD-EPI 2020 equation that does not use a race coefficient. Blood Venous blood specimen / Unknown 11/11/2024 12:42 AM EDT us Nathaly Nowak MD LAB BLOOD ORDERABLES Final Resu lt [facility] [address] [place] [address] * (ABNORMAL) CBC W/O Differential (11/11/2024 12:56 AM EDT) WBC Count 11.83(H) 3.70 - 10.30 10*3/uL LAB HEMATOLOGY METHOD 11/11/2024 12:56 AM EDT [facility] RBC Count 2.97(L) 4.60 - 6.10 10*6/uL LAB HEMATOLOGY METHOD 11/11/2024 12:56 AM EDT [facility] HGB 8.9(L) 13.7 - 17.5 g/dL LAB HEMATOLOGY METHOD 11/11/2024 12:56 AM EDT [facility] HCT 27.2(L) 40.0 - 51.0 % LAB HEMATOLOGY METHOD 11/11/2024 12:56 AM EDT [facility] Platelet Count 444(H) 155 - 369 10*3/uL LAB HEMATOLOGY METHOD 11/11/2024 12:56 AM EDT [facility] MCV 92 79 - 98 fL LAB HEMATOLOGY METHOD 11/11/2024 12:56 AM EDT [facility] MCH 30.0 26.0 - 32.0 pg LAB HEMATOLOGY METHOD 11/11/2024 12:56 AM EDT [facility] MCHC 32.7 30.7 - 35.5 g/dL LAB HEMATOLOGY METHOD 11/11/2024 12:56 AM EDT [facility] RDW 13.3 11.5 - 14.5 % LAB HEMATOLOGY METHOD 11/11/2024 12:56 AM EDT [facility] MPV 9.0 8.8 - 12.5 fL LAB HEMATOLOGY METHOD 11/11/2024 12:56 AM EDT [facility] nRBC 0.0 <=0.0 per 100 WBCs LAB HEMATOLOGY METHOD 11/11/2024 12:56 AM EDT [facility] Blood Venous blood specimen / Unknown 11/11/2024 12:42 AM EDT us Nathaly Nowak MD LAB BLOOD ORDERABLES Final Resu lt Performing Organization Address City/[facility]/ZIP Co de Phone Number [facility] [address] [place] [address] * (ABNORMAL) POCT glucose meter (11/10/2024 8:25 PM EDT) [facility] POCT Glucose 144(H) 74 - 99 [...] Comment 11/10/2024 8:28 PM EDT [facility] First Line Production Supervisor ID Nelda Gerber 11/11/19 8:28 PM EDT [facility] Device ID [id number] 11/10/2024 8:28 PM EDT [facility] Specimen Type POC Capillary 11/10/2024 8:28 PM EDT [facility] Blood Capillary blood specimen / Unknown 11/10/2024 8:25 PM EDT 11/10/2024 8:28 PM EDT us Nathaly Nowak MD LAB POINT OF CARE TE ST DOCKED DEVICE UNSOLICITED RESULTS Final Result [facility] [address] [place] [address] * (ABNORMAL) POCT glucose meter (11/10/2024 4:45 PM EDT) [facility] POCT Glucose 155(H) 74 - 99 [...] 11/10/2024 4:47 PM EDT [facility] First Line Production Supervisor ID Esperanza Parks 11/10/2024 4:47 PM EDT [facility] Device ID [id number] 11/10/2024 4:47 PM EDT [facility] Specimen Type POC Capillary 11/10/2024 4:47 PM EDT [facility] Blood Capillary blood specimen / Unknown 11/10/2024 4:45 PM EDT 11/10/2024 4:47 PM EDT Nathaly Nowak MD LAB POINT OF CARE TE ST DOCKED DEVICE UNSOLICITED RESULTS Final Result [facility] [address] [place] [address] * (ABNORMAL) POCT glucose meter (11/10/2024 12:13 PM EDT) [facility] POCT Glucose 131(H) 74 - 99 [...] for testing. Comment 11/10/2024 12:14 PM EDT [facility] First Line Production Supervisor ID Esperanza Parks 11/10/2024 12:14 PM EDT [facility] Device ID [id number] 11/10/2024 12:14 PM EDT [facility] Specimen Type POC Capillary 11/10/2024 12:14 PM EDT [facility] Blood Capillary blood specimen / Unknown 11/10/2024 12:13 PM EDT 11/10/2024 12:14 PM EDT Nathaly Nowak MD LAB POINT OF CARE TE ST DOCKED DEVICE UNSOLICITED RESULTS Final Result Performing Organization Address [facility] Co de Phone Number [facility] [address] [place] [address] * Vancomycin, Peak, Plasma Please draw ~2 hours after 0800 dose of vancomycin finishes infusing. Consider obtaining level via peripheral stick. If peripheral stick is not feasible, please ensure that line is flushed well prior to drawing level. Than... (11/10/2024 10:56 AM EDT) Vancomycin, Peak, Plasma 23.8 20.0 - 40.0 ug/mL 11/10/2024 11:[address] [facility] Blood Venous blood specimen / Unknown Venipuncture / Unknown 11/10/2024 10:56 AM EDT 11/10/2024 11:00 AM EDT Narrative [facility] - 11/10/2024 11:25 AM EDT Therapeutic Peak level: 20-40ug/mL Supra-therapeutic Peak level: >40 ug/mL us Abigail Seay MD LAB BLOOD ORDERABLES Final Res ult Performing Organization Address [facility] de Phone Number [facility] [address] [place] [id number] * (ABNORMAL) POCT glucose meter (11/10/2024 8:03 AM EDT) POCT Glucose 174(H) 74 - 99 mg/dL 11/10/2024 8:04 AM EDT [facility] Comment:Accuracy of a glucos [...] Comment 11/10/2024 8:04 AM EDT [facility] First Line Production Supervisor ID Esperanza Parks 11/10/2024 8:04 AM EDT [facility] Device ID [id number] 11/10/2024 8:04 AM EDT [facility] Specimen Type POC Capillary 11/10/2024 8:04 AM EDT [facility] Blood Capillary blood specimen / Unknown 11/10/2024 8:03 AM EDT 11/10/2024 8:04 AM EDT us Nathaly Nowak MD LAB POINT OF CARE TE ST DOCKED DEVICE UNSOLICITED RESULTS Final Result Performing Organization Address [facility]/ZIP Co de Phone Number [facility] [address] [place] [address] * Vancomycin, Trough, Plasma Please draw ~30 minutes prior to dose due at 0800 on 11/10. Please do NOThold dose awaiting level to return. Consider obtaining level via peripheral stick. If peripheral stick is not feasible, please ensure that line is... (11/10/2024 7:27 AM EDT) Vancomycin, Trough, Plasma 16.2 10.0 - 20.0 ug/mL 11/10/2024 8:24 AM EDT [facility] Blood Venous blood specimen / Unknown Venipuncture / Unknown 11/10/2024 7:27 AM EDT 11/10/2024 7:51 AM EDT Narrative [facility] - 11/10/2024 8:24 AM EDT Therapeutic Trough level: 10-20ug/mL Supra-therapeutic Trough level: >20 ug/mL us Abigail Seay MD LAB BLOOD ORDERABLES Final Res ult [facility] [address] [place] [address] * (ABNORMAL) CBC and Differential (11/10/2024 12:31 AM EDT) WBC Count 10.80(H) 3.70 - 10.30 10*3/uL LAB HEMATOLOGY METHOD 11/10/2024 12:53 AM EDT [facility] RBC Count 3.06(L) 4.60 - 6.10 10*6/uL LAB HEMATOLOGY METHOD 11/10/2024 12:53 AM EDT [facility] HGB 9.1(L) 13.7 - 17.5 g/dL LAB HEMATOLOGY METHOD 11/10/2024 12:53 AM EDT [facility] HCT 28.0(L) 40.0 - 51.0 % LAB HEMATOLOGY METHOD 11/10/2024 12:53 AM EDT [facility] Platelet Count 501(H) 155 - 369 10*3/uL LAB HEMATOLOGY METHOD 11/10/2024 12:53 AM EDT [facility] MCV 92 79 - 98 fL LAB HEMATOLOGY METHOD 11/10/2024 12:53 AM EDT [facility] MCH 29.7 26.0 - 32.0 pg LAB HEMATOLOGY METHOD 11/10/2024 12:53 AM EDT [facility] MCHC 32.5 30.7 - 35.5 g/dL LAB HEMATOLOGY METHOD 11/10/2024 12:53 AM EDT [facility] RDW 13.2 11.5 - 14.5 % LAB HEMATOLOGY METHOD 11/10/2024 12:53 AM EDT [facility] MPV 8.8 8.8 - 12.5 fL LAB HEMATOLOGY METHOD 11/10/2024 12:53 AM EDT [facility] nRBC 0.0 <=0.0 per 100 WBCs LAB HEMATOLOGY METHOD 11/10/2024 12:53 AM EDT [facility] Differential Type Automated LAB HEMATOLOGY METHOD 11/10/2024 12:53 AM EDT [facility] Neutrophils % 77 % LAB HEMATOLOGY METHOD 11/10/2024 12:53 AM EDT [facility] Lymphocytes % 13 % LAB HEMATOLOGY METHOD 11/10/2024 12:53 AM EDT [facility] Monocytes % 8 % LAB HEMATOLOGY METHOD 11/10/2024 12:53 AM EDT [facility] Eosinophils % 1 % LAB HEMATOLOGY METHOD 11/10/2024 12:53 AM EDT [facility] Basophils % 0 % LAB HEMATOLOGY METHOD 11/10/2024 12:53 AM EDT [facility] Immature Granulocytes % 1 % LAB HEMATOLOGY METHOD 11/10/2024 12:53 AM EDT [facility] Neutrophils Absolute 8.32(H) 1.60 - 6.10 10*3/uL LAB HEMATOLOGY METHOD 11/10/2024 12:53 AM EDT [facility] Lymphocytes Absolute 1.40 1.20 - 3.90 10*3/uL LAB HEMATOLOGY METHOD 11/10/2024 12:53 AM EDT [facility] Monocytes Absolute 0.89 0.30 - 0.90 10*3/uL LAB HEMATOLOGY METHOD 11/10/2024 12:53 AM EDT [facility] Eosinophils Absolute 0.09 0.00 - 0.50 10*3/uL LAB HEMATOLOGY METHOD 11/10/2024 12:53 AM EDT [facility] Basophils Absolute 0.04 0.00 - 0.10 10*3/uL LAB HEMATOLOGY METHOD 11/10/2024 12:53 AM EDT [facility] Immature Granulocytes Absolute 0.06 0.00 - 0.06 10*3/uL LAB HEMATOLOGY METHOD 11/10/2024 12:53 AM EDT [facility] Blood Venous blood specimen / Unknown Venipuncture / Unknown 11/10/2024 12:31 AM EDT 11/10/2024 12:37 AM EDT Narrative [facility] - 11/10/2024 12:53 AM EDT Therapeutic decision making should be based on absolute values, rather than percentages. us Nathaly Nowak MD LAB BLOOD ORDERABLES Final Resu lt [facility] [address] [place] [address] * (ABNORMAL) Comprehensive Metabolic Panel, Plasma (11/10/2024 12:31 AM EDT) Glucose, Plasma 185(H) 74 - 99 mg/dL 11/10/2024 1:05 AM EDT [facility] BUN, Plasma 9 8 - 23 mg/dL 11/10/2024 1:05 AM EDT [facility] Creatinine, Plasma 0.72 0.70 - 1.20 mg/dL 11/10/2024 1:05 AM EDT [facility] BUN/Creatinine Ratio 13 11/10/2024 1:05 AM EDT [facility] Sodium, Plasma 135(L) 136 - 145 mmol/L 11/10/2024 1:05 AM EDT [facility] Potassium, Plasma 4.0 3.6 - 4.9 mmol/L 11/10/2024 1:05 AM EDT [facility] Chloride, Plasma 106 97 - 107 mmol/L 11/10/2024 1:05 AM EDT [facility] CO2, Plasma 19(L) 22 - 29 mmol/L 11/10/2024 1:05 AM EDT [facility] Anion Gap 10 6 - 16 mmol/L 11/10/2024 1:05 AM EDT [facility] Total Calcium, Plasma 7.8(L) 8.9 - 10.2 mg/dL 11/10/2024 1:05 AM EDT [facility] Total Protein 5.6(L) 6.3 - 7.9 g/dL 11/10/2024 1:05 AM EDT [facility] Albumin, Plasma 3.1(L) 3.5 - 5.2 g/dL 11/10/2024 1:05 AM EDT [facility] AST, Plasma 33 10 - 50 U/L 11/10/2024 1:05 AM EDT [facility] ALT, Plasma 25 10 - 50 U/L 11/10/2024 1:05 AM EDT [facility] Alkaline Phosphatase, Plasma 108 40 - 115 U/L 11/10/2024 1:05 AM EDT [facility] Total Bilirubin, Plasma <0.2(L) 0.2 - 1.1 mg/dL 11/10/2024 1:05 AM EDT [facility] eGFRcr 101.4 mL/min/1.7 3m*2 11/10/2024 1:05 AM EDT [facility] Comment:Reported eGFRcr in m L/min/1.73m2 is based the CKD-EPI 2020 equation that does not use a race coefficient. Blood Venous blood specimen / Unknown Venipuncture / Unknown 11/10/2024 12:31 AM EDT 11/10/2024 12:37 AM EDT Nathaly Nowak MD LAB BLOOD ORDERABLES Final Resu lt Performing Organization Address [facility] Co de Phone Number [facility] [address] [place] [address] * (ABNORMAL) POCT glucose meter (11/09/2024 8:04 PM EDT) POCT Glucose 114(H) 74 - 99 mg/dL 11/09/2024 8:06 PM EDT [facility] Comment:Accuracy of [...] for testing. Comment 11/09/2024 8:06 PM EDT [facility] First Line Production Supervisor ID Maximiliano Hansen II 11/09/2024 8:06 PM EDT [facility] Device ID [id number] 11/09/2024 8:06 PM EDT [facility] Specimen Type POC Capillary 11/09/2024 8:06 PM EDT [facility] Blood Capillary blood specimen / Unknown 11/09/2024 8:04 PM EDT 11/09/2024 8:06 PM EDT Nathaly Nowak MD LAB POINT OF CARE TE ST DOCKED DEVICE UNSOLICITED RESULTS Final Result Performing Organization Address City/[facility] Co de Phone Number [facility] [address] [place] [address] * (ABNORMAL) POCT glucose meter (11/09/2024 4:36 PM EDT) Pathologist [facility] POCT Glucose 166(H) 74 - 99 mg/dL [...] for testing. Comment 11/09/2024 4:38 PM EDT [facility] First Line Production Supervisor ID Kristian Sosa 11/09/2024 4:38 PM EDT [facility] Device ID [id number] 11/09/2024 4:38 PM EDT [facility] Specimen Type POC Capillary 11/09/2024 4:38 PM EDT [facility] Blood Capillary blood specimen / Unknown 11/09/2024 4:36 PM EDT 11/09/2024 4:38 PM EDT us Nathaly Nowak MD LAB POINT OF CARE TE ST DOCKED DEVICE UNSOLICITED RESULTS Final Result [facility] [address] [place] [address] * PICC SINGLE LUMEN ([employer] LINK) (11/09/2024 1:11 PM EDT) Narrative Estefani Barraza RN - 11/09/2024 1:11 PM EDT Estefani Barraza RN 11/09/2024 1:12 PM Insert PICC line Date/Time: 11/09/2024 1:11 PM Performed by: Estefani Barraza RN Authorized by: Nathaly Nowak MD [place] Protocol: Verbal consent obtained?: Yes Written consent [...] selection rationale: Left pacemaker Catheter Lot #: [id number] 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 Comment 11/09/2024 11:51 AM EDT [facility] First Line Production Supervisor ID Kristian Sosa 11/09/2024 11:51 AM EDT [facility] Device ID [id number] 11/09/2024 11:51 AM EDT [facility] Specimen Type POC Capillary 11/09/2024 11:51 AM EDT [facility] Blood Capillary blood specimen / Unknown 11/09/2024 11:50 AM EDT 11/09/2024 11:51 AM EDT Nathaly Nowak MD LAB POINT OF CARE TE ST DOCKED DEVICE UNSOLICITED RESULTS Final Result [facility] [address] [place] [id number] * (ABNORMAL) POCT glucose meter (11/09/2024 8:14 AM EDT) [facility] POCT Glucose 153(H) 74 - 99 [...] Comment 11/09/2024 8:15 AM EDT [facility] First Line Production Supervisor ID Kristian Sosa 11/09/2024 8:15 AM EDT [facility] Device ID [id number] 11/09/2024 8:15 AM EDT [facility] Specimen Type POC Capillary 11/09/2024 8:15 AM EDT [facility] Blood Capillary blood specimen / Unknown 11/09/2024 8:14 AM EDT 11/09/2024 8:15 AM EDT us Nathaly Nowak MD LAB POINT OF CARE TE ST DOCKED DEVICE UNSOLICITED RESULTS Final Result Performing Organization Address City/State/[facility] Co de Phone Number [facility] [address] [place] [address] * (ABNORMAL) CBC and Differential (11/09/2024 4:15 AM EDT) [facility] WBC Count 10.27 3.70 - 10.30 10*3/uL LAB HEMATOLOGY METHOD 11/09/2024 4:26 AM EDT [facility] RBC Count 3.14(L) 4.60 - 6.10 10*6/uL LAB HEMATOLOGY METHOD 11/09/2024 4:26 AM EDT [facility] HGB 9.2(L) 13.7 - 17.5 g/dL LAB HEMATOLOGY METHOD 11/09/2024 4:26 AM EDT [facility] HCT 28.3(L) 40.0 - 51.0 % LAB HEMATOLOGY METHOD 11/09/2024 4:26 AM EDT [facility] Platelet Count 468(H) 155 - 369 10*3/uL LAB HEMATOLOGY METHOD 11/09/2024 4:26 AM EDT [facility] MCV 90 79 - 98 fL LAB HEMATOLOGY METHOD 11/09/2024 4:26 AM EDT [facility] MCH 29.3 26.0 - 32.0 pg LAB HEMATOLOGY METHOD 11/09/2024 4:26 AM EDT [facility] MCHC 32.5 30.7 - 35.5 g/dL LAB HEMATOLOGY METHOD 11/09/2024 4:26 AM EDT [facility] RDW 13.1 11.5 - 14.5 % LAB HEMATOLOGY METHOD 11/09/2024 4:26 AM EDT [facility] MPV 8.7(L) 8.8 - 12.5 fL LAB HEMATOLOGY METHOD 11/09/2024 4:26 AM EDT [facility] nRBC 0.0 <=0.0 per 100 WBCs LAB HEMATOLOGY METHOD 11/09/2024 4:26 AM EDT [facility] Differential Type Automated LAB HEMATOLOGY METHOD 11/09/2024 4:26 AM EDT [facility] Neutrophils % 77 % LAB HEMATOLOGY METHOD 11/09/2024 4:26 AM EDT [facility] Lymphocytes % 13 % LAB HEMATOLOGY METHOD 11/09/2024 4:26 AM EDT [facility] Monocytes % 8 % LAB HEMATOLOGY METHOD 11/09/2024 4:26 AM EDT [facility] Eosinophils % 1 % LAB HEMATOLOGY METHOD 11/09/2024 4:26 AM EDT [facility] Basophils % 0 % LAB HEMATOLOGY METHOD 11/09/2024 4:26 AM EDT [facility] Immature Granulocytes % 1 % LAB HEMATOLOGY METHOD 11/09/2024 4:26 AM EDT [facility] Neutrophils Absolute 7.97(H) 1.60 - 6.10 10*3/uL LAB HEMATOLOGY METHOD 11/09/2024 4:26 AM EDT [facility] Lymphocytes Absolute 1.32 1.20 - 3.90 10*3/uL LAB HEMATOLOGY METHOD 11/09/2024 4:26 AM EDT [facility] Monocytes Absolute 0.83 0.30 - 0.90 10*3/uL LAB HEMATOLOGY METHOD 11/09/2024 4:26 AM EDT [facility] Eosinophils Absolute 0.07 0.00 - 0.50 10*3/uL LAB HEMATOLOGY METHOD 11/09/2024 4:26 AM EDT [facility] Basophils Absolute 0.03 0.00 - 0.10 10*3/uL LAB HEMATOLOGY METHOD 11/09/2024 4:26 AM EDT [facility] Immature Granulocytes Absolute 0.05 0.00 - 0.06 10*3/uL LAB HEMATOLOGY METHOD 11/09/2024 4:26 AM EDT [facility] Blood Venous blood specimen / Unknown Venipuncture / Unknown 11/09/2024 4:15 AM EDT 11/09/2024 4:18 AM EDT Narrative [facility] - 11/09/2024 4:26 AM EDT Therapeutic decision making should be based on absolute values, rather than percentages. us Nathaly Nowak MD LAB BLOOD ORDERABLES Final Resu lt [facility] [address] [place] [address] * (ABNORMAL) Comprehensive Metabolic Panel, Plasma (11/09/2024 4:15 AM EDT) Glucose, Plasma 171(H) 74 - 99 mg/dL 11/09/2024 4:47 AM EDT [facility] BUN, Plasma 9 8 - 23 mg/dL 11/09/2024 4:47 AM EDT [facility] Creatinine, Plasma 0.67(L) 0.70 - 1.20 mg/dL 11/09/2024 4:47 AM EDT [facility] BUN/Creatinine Ratio 13 11/09/2024 4:47 AM EDT [facility] Sodium, Plasma 134(L) 136 - 145 mmol/L 11/09/2024 4:47 AM EDT [facility] Potassium, Plasma 4.1 3.6 - 4.9 mmol/L 11/09/2024 4:47 AM EDT [facility] Chloride, Plasma 104 97 - 107 mmol/L 11/09/2024 4:47 AM EDT [facility] CO2, Plasma 21(L) 22 - 29 mmol/L 11/09/2024 4:47 AM EDT [facility] Anion Gap 9 6 - 16 mmol/L 11/09/2024 4:47 AM EDT [facility] Total Calcium, Plasma 8.4(L) 8.9 - 10.2 mg/dL 11/09/2024 4:47 AM EDT [facility] Total Protein 5.8(L) 6.3 - 7.9 g/dL 11/09/2024 4:47 AM EDT [facility] Albumin, Plasma 3.2(L) 3.5 - 5.2 g/dL 11/09/2024 4:47 AM EDT [facility] AST, Plasma 18 10 - 50 U/L 11/09/2024 4:47 AM EDT [facility] ALT, Plasma 17 10 - 50 U/L 11/09/2024 4:47 AM EDT [facility] Alkaline Phosphatase, Plasma 110 40 - 115 U/L 11/09/2024 4:47 AM EDT [facility] Total Bilirubin, Plasma <0.2(L) 0.2 - 1.1 mg/dL 11/09/2024 4:47 AM EDT [facility] eGFRcr 103.6 mL/min/1.7 3m*2 11/09/2024 4:47 AM EDT [facility] Comment:Reported eGFRcr in m L/min/1.73m2 is based the CKD-EPI 2020 equation that does not use a race coefficient. Blood Venous blood specimen / Unknown Venipuncture / Unknown 11/09/2024 4:15 AM EDT 11/09/2024 4:18 AM EDT us Nathaly Nowak MD LAB BLOOD ORDERABLES Final Resu lt [facility] [address] [place] [address] * (ABNORMAL) POCT glucose meter (11/09/2024 3:30 AM EDT) POCT Glucose 160(H) 74 - 99 mg/dL 11/09/2024 3:31 AM EDT [facility] Comment:Accuracy of a glucos e result [...] Comment 11/09/2024 3:31 AM EDT [facility] First Line Production Supervisor ID Maximiliano Hansen II 11/09/2024 3:31 AM EDT [facility] Device ID [id number] 11/09/2024 3:31 AM EDT [facility] Specimen Type POC Capillary 11/09/2024 3:31 AM EDT [facility] Blood Capillary blood specimen / Unknown 11/09/2024 3:30 AM EDT 11/09/2024 3:31 AM EDT Nathaly Nowak MD LAB POINT OF CARE TE ST DOCKED DEVICE UNSOLICITED RESULTS Final Result Performing Organization Address City/State/[facility] Co de Phone Number [facility] [address] [place] [address] * (ABNORMAL) POCT glucose meter (11/08/2024 7:21 PM EDT) POCT Glucose 292(H) 74 - 99 mg/dL 11/08/2024 7:22 PM EDT [facility] Comment:Accuracy of a [...] Comment 11/08/2024 7:22 PM EDT [facility] First Line Production Supervisor ID Maximiliano Hansen II 11/08/2024 7:22 PM EDT [facility] Device ID [id number] 11/08/2024 7:22 PM EDT [facility] Specimen Type POC Capillary 11/08/2024 7:22 PM EDT [facility] Blood Capillary blood specimen / Unknown 11/08/2024 7:21 PM EDT 11/08/2024 7:22 PM EDT us Nathaly Nowak MD LAB POINT OF CARE TE ST DOCKED DEVICE UNSOLICITED RESULTS Final Result Performing Organization Address City/[facility]/ZIP Co de Phone Number [facility] [address] [place] [address] * (ABNORMAL) POCT glucose meter (11/08/2024 5:12 PM EDT) [facility] POCT Glucose 178(H) 74 - 99 [...] Comment 11/08/2024 5:14 PM EDT [facility] First Line Production Supervisor ID Domenic Estefani Perez 11/08/2024 5:14 PM EDT [facility] Device ID [id number] 11/08/2024 5:14 PM EDT [facility] Specimen Type POC Capillary 11/08/2024 5:14 PM EDT [facility] Blood Capillary blood specimen / Unknown 11/08/2024 5:12 PM EDT 11/08/2024 5:14 PM EDT Result [facility] Nathaly Nowak MD LAB POINT OF CARE TE ST DOCKED DEVICE UNSOLICITED RESULTS Final Result Performing Organization Address City/[facility] Co de Phone Number [facility] [address] [place] [address] * (ABNORMAL) POCT glucose meter (11/08/2024 12:03 PM EDT) [facility] POCT Glucose 191(H) 74 - 99 [...] for testing. Comment 11/08/2024 12:05 PM EDT [facility] First Line Production Supervisor ID Estefani Sheth 11/08/2024 12:05 PM EDT [facility] Device ID [id number] 11/08/2024 12:05 PM EDT [facility] Specimen Type POC Capillary 11/08/2024 12:05 PM EDT [facility] Blood Capillary blood specimen / Unknown 11/08/2024 12:03 PM EDT 11/08/2024 12:05 PM EDT Nathaly Nowak MD LAB POINT OF CARE TE ST DOCKED DEVICE UNSOLICITED RESULTS Final Result [facility] [address] [place] [address] * Vancomycin, Peak, Plasma Please draw ~2 hours after 11/08 0600 dose of vancomycin finishes infusing.Consider obtaining level via peripheral stick. If peripheral stick is not feasible, please ensure that line is flushed well prior to drawing level.... (11/08/2024 9:24 AM EDT) Pathologist [facility] Vancomycin, Peak, Plasma 29.1 20.0 - 40.0 ug/mL 11/08/2024 10:31 AM EDT [facility] Blood Venous blood specimen / Unknown Venipuncture / Unknown 11/08/2024 9:24 AM EDT 11/08/2024 9:47 AM EDT Narrative [facility] - 11/08/2024 10:31 AM EDT Therapeutic Peak level: 20-40ug/mL Supra-therapeutic Peak level: >40 ug/mL us Nathaly Nowak MD LAB BLOOD ORDERABLES Final Resu lt [facility] [address] [place] [address] * (ABNORMAL) POCT glucose meter (11/08/2024 8:00 AM EDT) POCT Glucose 150(H) 74 - [...] for testing. Comment 11/08/2024 8:01 AM EDT [facility] First Line Production Supervisor ID Estefani Sheth 11/08/2024 8:01 AM EDT [facility] Device ID [id number] 11/08/2024 8:01 AM EDT [facility] Specimen Type POC Capillary 11/08/2024 8:01 AM EDT [facility] Blood Capillary blood specimen / Unknown 11/08/2024 8:00 AM EDT 11/08/2024 8:01 AM EDT us Nathaly Nowak MD LAB POINT OF CARE TE ST DOCKED DEVICE UNSOLICITED RESULTS Final Result Performing Organization Address City/State/[facility] Co de Phone Number [facility] [address] [place] [address] * (ABNORMAL) CBC and Differential (11/08/2024 4:39 AM EDT) WBC Count 9.18 3.70 - 10.30 10*3/uL LAB HEMATOLOGY METHOD 11/08/2024 4:58 AM EDT [facility] RBC Count 3.11(L) 4.60 - 6.10 10*6/uL LAB HEMATOLOGY METHOD 11/08/2024 4:58 AM EDT [facility] HGB 9.2(L) 13.7 - 17.5 g/dL LAB HEMATOLOGY METHOD 11/08/2024 4:58 AM EDT [facility] HCT 28.9(L) 40.0 - 51.0 % LAB HEMATOLOGY METHOD 11/08/2024 4:58 AM EDT [facility] Platelet Count 485(H) 155 - 369 10*3/uL LAB HEMATOLOGY METHOD 11/08/2024 4:58 AM EDT [facility] MCV 93 79 - 98 fL LAB HEMATOLOGY METHOD 11/08/2024 4:58 AM EDT [facility] MCH 29.6 26.0 - 32.0 pg LAB HEMATOLOGY METHOD 11/08/2024 4:58 AM EDT [facility] MCHC 31.8 30.7 - 35.5 g/dL LAB HEMATOLOGY METHOD 11/08/2024 4:58 AM EDT [facility] RDW 13.0 11.5 - 14.5 % LAB HEMATOLOGY METHOD 11/08/2024 4:58 AM EDT [facility] MPV 8.8 8.8 - 12.5 fL LAB HEMATOLOGY METHOD 11/08/2024 4:58 AM EDT [facility] nRBC 0.0 <=0.0 per 100 WBCs LAB HEMATOLOGY METHOD 11/08/2024 4:58 AM EDT [facility] Differential Type Automated LAB HEMATOLOGY METHOD 11/08/2024 4:58 AM EDT [facility] Neutrophils % 69 % LAB HEMATOLOGY METHOD 11/08/2024 4:58 AM EDT [facility] Lymphocytes % 17 % LAB HEMATOLOGY METHOD 11/08/2024 4:58 AM EDT [facility] Monocytes % 10 % LAB HEMATOLOGY METHOD 11/08/2024 4:58 AM EDT [facility] Eosinophils % 2 % LAB HEMATOLOGY METHOD 11/08/2024 4:58 AM EDT [facility] Basophils % 1 % LAB HEMATOLOGY METHOD 11/08/2024 4:58 AM EDT [facility] Immature Granulocytes % 1 % LAB HEMATOLOGY METHOD 11/08/2024 4:58 AM EDT [facility] Neutrophils Absolute 6.40(H) 1.60 - 6.10 10*3/uL LAB HEMATOLOGY METHOD 11/08/2024 4:58 AM EDT [facility] Lymphocytes Absolute 1.59 1.20 - 3.90 10*3/uL LAB HEMATOLOGY METHOD 11/08/2024 4:58 AM EDT [facility] Monocytes Absolute 0.87 0.30 - 0.90 10*3/uL LAB HEMATOLOGY METHOD 11/08/2024 4:58 AM EDT [facility] Eosinophils Absolute 0.22 0.00 - 0.50 10*3/uL LAB HEMATOLOGY METHOD 11/08/2024 4:58 AM EDT [facility] Basophils Absolute 0.05 0.00 - 0.10 10*3/uL LAB HEMATOLOGY METHOD 11/08/2024 4:58 AM EDT [facility] Immature Granulocytes Absolute 0.05 0.00 - 0.06 10*3/uL LAB HEMATOLOGY METHOD 11/08/2024 4:58 AM EDT [facility] Blood Venous blood specimen / Unknown Venipuncture / Unknown 11/08/2024 4:39 AM EDT 11/08/2024 4:49 AM EDT Narrative [facility] - 11/08/2024 4:58 AM EDT Therapeutic decision making should be based on absolute values, rather than percentages. us Nathaly Nowak MD LAB BLOOD ORDERABLES Final Resu lt [facility] [address] [place] [address] * (ABNORMAL) Comprehensive Metabolic Panel, Plasma (11/08/2024 4:39 AM EDT) Glucose, Plasma 255(H) 74 - 99 mg/dL 11/08/2024 5:20 AM EDT [facility] BUN, Plasma 10 8 - 23 mg/dL 11/08/2024 5:20 AM EDT [facility] Creatinine, Plasma 0.75 0.70 - 1.20 mg/dL 11/08/2024 5:20 AM EDT [facility] BUN/Creatinine Ratio 13 11/08/2024 5:20 AM EDT [facility] Sodium, Plasma 133(L) 136 - 145 mmol/L 11/08/2024 5:20 AM EDT [facility] Potassium, Plasma 5.2(H) 3.6 - 4.9 mmol/L 11/08/2024 5:20 AM EDT [facility] Chloride, Plasma 105 97 - 107 mmol/L 11/08/2024 5:20 AM EDT [facility] CO2, Plasma 20(L) 22 - 29 mmol/L 11/08/2024 5:20 AM EDT [facility] Anion Gap 8 6 - 16 mmol/L 11/08/2024 5:20 AM EDT [facility] Total Calcium, Plasma 7.7(L) 8.9 - 10.2 mg/dL 11/08/2024 5:20 AM EDT [facility] Total Protein 5.6(L) 6.3 - 7.9 g/dL 11/08/2024 5:20 AM EDT [facility] Albumin, Plasma 2.8(L) 3.5 - 5.2 g/dL 11/08/2024 5:20 AM EDT [facility] AST, Plasma 20 10 - 50 U/L 11/08/2024 5:20 AM EDT [facility] Comment:Hemolyzed, result ma y be falsely increased. ALT, Plasma 14 10 - 50 U/L 11/08/2024 5:20 AM EDT [facility] Alkaline Phosphatase, Plasma 119(H) 40 - 115 U/L 11/08/2024 5:20 AM EDT [facility] Total Bilirubin, Plasma <0.2(L) 0.2 - 1.1 mg/dL 11/08/2024 5:20 AM EDT [facility] eGFRcr 100.1 mL/min/1.7 3m*2 11/08/2024 5:20 AM EDT [facility] Comment:Reported eGFRcr in m L/min/1.73m2 is based the CKD-EPI 2020 equation that does not use a race coefficient. Blood Venous blood specimen / Unknown Venipuncture / Unknown 11/08/2024 4:39 AM EDT 11/08/2024 4:43 AM EDT us Nathaly Nowak MD LAB BLOOD ORDERABLES Final Resu lt [facility] [address] [place] [address] * Vancomycin, Trough, Plasma Please draw ~30 minutes prior to dose due at 0600 on 11/08. Please do NOThold dose awaiting level to return. Consider obtaining level via peripheral stick. If peripheral stick is not feasible, please ensure that line is... (11/08/2024 4:39 AM EDT) Vancomycin, Trough, Plasma 18.7 10.0 - 20.0 ug/mL 11/08/2024 5:22 AM EDT [facility] Blood Venous blood specimen / Unknown Venipuncture / Unknown 11/08/2024 4:39 AM EDT 11/08/2024 4:43 AM EDT Narrative [facility] - 11/08/2024 5:22 AM EDT Therapeutic Trough level: 10-20ug/mL Supra-therapeutic Trough level: >20 ug/mL Nathaly Nowak MD LAB BLOOD ORDERABLES Final Resu lt Performing Organization Address City/[facility]/ZIP Co de Phone Number [facility] [address] [place] [address] * (ABNORMAL) POCT glucose meter (11/07/2024 7:26 PM EDT) POCT Glucose 172(H) 74 - 99 mg/dL [...] for testing. Comment 11/07/2024 7:28 PM EDT [facility] First Line Production Supervisor ID Maximiliano Hansen II 11/07/2024 7:28 PM EDT [facility] Device ID [id number] 11/07/2024 7:28 PM EDT [facility] Specimen Type POC Capillary 11/07/2024 7:28 PM EDT [facility] Blood Capillary blood specimen / Unknown 11/07/2024 7:26 PM EDT 11/07/2024 7:28 PM EDT Nathaly Nowak MD LAB POINT OF CARE TE ST DOCKED DEVICE UNSOLICITED RESULTS Final Result Performing Organization Address City/[facility]/ZIP Co de Phone Number [facility] [address] [place] [address] * (ABNORMAL) POCT glucose meter (11/07/2024 5:51 [...] for testing. Comment 11/07/2024 5:52 PM EDT [facility] First Line Production Supervisor ID Brigitte Castellon 11/07/2024 5:52 PM EDT [facility] Device ID [id number] 11/07/2024 5:52 PM EDT [facility] Specimen Type POC Capillary 11/07/2024 5:52 PM EDT [facility] Blood Capillary blood specimen / Unknown 11/07/2024 5:51 PM EDT 11/07/2024 5:52 PM EDT Nathaly Nowak MD LAB POINT OF CARE TE ST DOCKED DEVICE UNSOLICITED RESULTS Final Result Performing Organization Address City/State/[facility] Co de Phone Number [facility] [address] [place] [address] * (ABNORMAL) POCT glucose meter (11/07/2024 4:47 PM EDT) [facility] POCT Glucose 162(H) 74 - 99 [...] Comment 11/07/2024 4:48 PM EDT [facility] First Line Production Supervisor ID Estefani Sheth 11/07/2024 4:48 PM EDT [facility] Device ID [id number] 11/07/2024 4:48 PM EDT [facility] Specimen Type POC Capillary 11/07/2024 4:48 PM EDT [facility] Blood Capillary blood specimen / Unknown 11/07/2024 4:47 PM EDT 11/07/2024 4:48 PM EDT Nathaly Nowak MD LAB POINT OF CARE TE ST DOCKED DEVICE UNSOLICITED RESULTS Final Result Performing Organization Address City/[facility]/ZIP Co de Phone Number [facility] [address] [place] [address] * (ABNORMAL) POCT glucose meter (11/07/2024 12:22 PM EDT) Pathologist [facility] POCT Glucose 172(H) 74 - 99 mg/dL 11/07/2024 12:24 PM EDT [facility] Comment:Accuracy of a [...] Comment 11/07/2024 12:24 PM EDT [facility] First Line Production Supervisor ID Estefani Sheth 11/07/2024 12:24 PM EDT [facility] Device ID [id number] 11/07/2024 12:24 PM EDT [facility] Specimen Type POC Capillary 11/07/2024 12:24 PM EDT [facility] Blood Capillary blood specimen / Unknown 11/07/2024 12:22 PM EDT 11/07/2024 12:24 PM EDT Nathaly Nowak MD LAB POINT OF CARE TE ST DOCKED DEVICE UNSOLICITED RESULTS Final Result Performing Organization Address City/[facility]/ZIP Co de Phone Number [facility] [address] [place] [address] * (ABNORMAL) CBC and Differential (11/07/2024 11:37 AM EDT) Pathologist [facility] WBC Count 9.96 3.70 - 10.30 10*3/uL LAB HEMATOLOGY METHOD 11/07/2024 12:33 PM EDT [facility] RBC Count 2.81(L) 4.60 - 6.10 10*6/uL LAB HEMATOLOGY METHOD 11/07/2024 12:33 PM EDT [facility] HGB 8.5(L) 13.7 - 17.5 g/dL LAB HEMATOLOGY METHOD 11/07/2024 12:33 PM EDT [facility] HCT 26.0(L) 40.0 - 51.0 % LAB HEMATOLOGY METHOD 11/07/2024 12:33 PM EDT [facility] Platelet Count 524(H) 155 - 369 10*3/uL LAB HEMATOLOGY METHOD 11/07/2024 12:33 PM EDT [facility] MCV 93 79 - 98 fL LAB HEMATOLOGY METHOD 11/07/2024 12:33 PM EDT [facility] MCH 30.2 26.0 - 32.0 pg LAB HEMATOLOGY METHOD 11/07/2024 12:33 PM EDT [facility] MCHC 32.7 30.7 - 35.5 g/dL LAB HEMATOLOGY METHOD 11/07/2024 12:33 PM EDT [facility] RDW 13.1 11.5 - 14.5 % LAB HEMATOLOGY METHOD 11/07/2024 12:33 PM EDT [facility] MPV 9.0 8.8 - 12.5 fL LAB HEMATOLOGY METHOD 11/07/2024 12:33 PM EDT [facility] nRBC 0.0 <=0.0 per 100 WBCs LAB HEMATOLOGY METHOD 11/07/2024 12:33 PM EDT [facility] Differential Type Automated LAB HEMATOLOGY METHOD 11/07/2024 12:33 PM EDT [facility] Neutrophils % 72 % LAB HEMATOLOGY METHOD 11/07/2024 12:33 PM EDT [facility] Lymphocytes % 17 % LAB HEMATOLOGY METHOD 11/07/2024 12:33 PM EDT [facility] Monocytes % 9 % LAB HEMATOLOGY METHOD 11/07/2024 12:33 PM EDT [facility] Eosinophils % 1 % LAB HEMATOLOGY METHOD 11/07/2024 12:33 PM EDT [facility] Basophils % 1 % LAB HEMATOLOGY METHOD 11/07/2024 12:33 PM EDT [facility] Immature Granulocytes % 0 % LAB HEMATOLOGY METHOD 11/07/2024 12:33 PM EDT [facility] Neutrophils Absolute 7.19(H) 1.60 - 6.10 10*3/uL LAB HEMATOLOGY METHOD 11/07/2024 12:33 PM EDT [facility] Lymphocytes Absolute 1.66 1.20 - 3.90 10*3/uL LAB HEMATOLOGY METHOD 11/07/2024 12:33 PM EDT [facility] Monocytes Absolute 0.88 0.30 - 0.90 10*3/uL LAB HEMATOLOGY METHOD 11/07/2024 12:33 PM EDT [facility] Eosinophils Absolute 0.14 0.00 - 0.50 10*3/uL LAB HEMATOLOGY METHOD 11/07/2024 12:33 PM EDT [facility] Basophils Absolute 0.05 0.00 - 0.10 10*3/uL LAB HEMATOLOGY METHOD 11/07/2024 12:33 PM EDT [facility] Immature Granulocytes Absolute 0.04 0.00 - 0.06 10*3/uL LAB HEMATOLOGY METHOD 11/07/2024 12:33 PM EDT [facility] Blood Venous blood specimen / Unknown Venipuncture / Unknown 11/07/2024 11:37 AM EDT 11/07/2024 12:24 PM EDT Narrative [facility] - 11/07/2024 12:33 PM EDT Therapeutic decision making should be based on absolute values, rather than percentages. us Nathaly Nowak MD LAB BLOOD ORDERABLES Final Resu lt [facility] [address] [place] [address] * (ABNORMAL) Comprehensive Metabolic Panel, Plasma (11/07/2024 11:37 AM EDT) Glucose, Plasma 173(H) 74 - 99 mg/dL 11/07/2024 1:31 PM EDT [facility] BUN, Plasma 13 8 - 23 mg/dL 11/07/2024 1:31 PM EDT [facility] Creatinine, Plasma 0.92 0.70 - 1.20 mg/dL 11/07/2024 1:31 PM EDT [facility] BUN/Creatinine Ratio 14 11/07/2024 1:31 PM EDT [facility] Sodium, Plasma 136 136 - 145 mmol/L 11/07/2024 1:31 PM EDT [facility] Potassium, Plasma 4.0 3.6 - 4.9 mmol/L 11/07/2024 1:31 PM EDT [facility] Chloride, Plasma 104 97 - 107 mmol/L 11/07/2024 1:31 PM EDT [facility] CO2, Plasma 23 22 - 29 mmol/L 11/07/2024 1:31 PM EDT [facility] Anion Gap 9 6 - 16 mmol/L 11/07/2024 1:31 PM EDT [facility] Total Calcium, Plasma 7.8(L) 8.9 - 10.2 mg/dL 11/07/2024 1:31 PM EDT [facility] Total Protein 5.7(L) 6.3 - 7.9 g/dL 11/07/2024 1:31 PM EDT [facility] Albumin, Plasma 3.0(L) 3.5 - 5.2 g/dL 11/07/2024 1:31 PM EDT [facility] AST, Plasma 15 10 - 50 U/L 11/07/2024 1:31 PM EDT [facility] ALT, Plasma 16 10 - 50 U/L 11/07/2024 1:31 PM EDT [facility] Alkaline Phosphatase, Plasma 119(H) 40 - 115 U/L 11/07/2024 1:31 PM EDT [facility] Total Bilirubin, Plasma <0.2(L) 0.2 - 1.1 mg/dL 11/07/2024 1:31 PM EDT [facility] eGFRcr 92.3 mL/min/1.7 3m*2 11/07/2024 1:31 PM EDT [facility] Comment:Reported eGFRcr in m L/min/1.73m2 is based the CKD-EPI 2020 equation that does not use a race coefficient. Blood Venous blood specimen / Unknown Venipuncture / Unknown 11/07/2024 11:37 AM EDT 11/07/2024 12:23 PM EDT us Nathaly Nowak MD LAB BLOOD ORDERABLES Final Resu lt [facility] [address] [place] [address] * Type and Screen (11/07/2024 11:37 AM [...] ORDERABLES F inal Result Performing Organization Address [facility] Co de Phone Number BLOOD BANK [address] [place] [address] * (ABNORMAL) POCT glucose meter (11/07/2024 10:34 AM EDT) [facility] POCT Glucose 199(H) 74 - 99 [...] for testing. Comment 11/07/2024 10:36 AM EDT [facility] First Line Production Supervisor ID Joy Iraheta 11/07/2024 10:36 AM EDT [facility] Device ID [id number] 11/07/2024 10:36 AM EDT [facility] Specimen Type POC Capillary 11/07/2024 10:36 AM EDT [facility] Blood Capillary blood specimen / Unknown 11/07/2024 10:34 AM EDT 11/07/2024 10:36 AM EDT Nathaly Nowak MD LAB POINT OF CARE TE ST DOCKED DEVICE UNSOLICITED RESULTS Final Result Performing Organization Address City/[facility] Co de Phone Number [facility] [address] [place] [address] * (ABNORMAL) POCT glucose meter (11/07/2024 9:34 AM EDT) [facility] POCT Glucose 208(H) 74 - 99 mg/dL 11/07/2024 9:36 AM EDT [facility] Comment:Accuracy of a [...] Comment 11/07/2024 9:36 AM EDT [facility] First Line Production Supervisor ID Brigitte Castellon 11/07/2024 9:36 AM EDT [facility] Device ID [id number] 11/07/2024 9:36 AM EDT [facility] Specimen Type POC Capillary 11/07/2024 9:36 AM EDT [facility] Blood Capillary blood specimen / Unknown 11/07/2024 9:34 AM EDT 11/07/2024 9:36 AM EDT Nathaly Nowak MD LAB POINT OF CARE TE ST DOCKED DEVICE UNSOLICITED RESULTS Final Result [facility] [address] [place] [address] * (ABNORMAL) POCT glucose meter (11/07/2024 8:20 AM EDT) [facility] POCT Glucose 137(H) 74 - 99 [...] Comment 11/07/2024 8:22 AM EDT [facility] First Line Production Supervisor ID Estefani Sheth Chris 11/07/2024 8:22 AM EDT [facility] Device ID [id number] 11/07/2024 8:22 AM EDT [facility] Specimen Type POC Capillary 11/07/2024 8:22 AM EDT [facility] Blood Capillary blood specimen / Unknown 11/07/2024 8:20 AM EDT 11/07/2024 8:22 AM EDT Nathaly Nowak MD LAB POINT OF CARE TE ST DOCKED DEVICE UNSOLICITED RESULTS Final Result [facility] [address] [place] [address] * (ABNORMAL) POCT glucose meter (11/07/2024 7:21 AM EDT) POCT Glucose 151(H) 74 - 99 mg/dL [...] Comment 11/07/2024 7:22 AM EDT [facility] First Line Production Supervisor ID Brigitte Castellon 11/07/2024 7:22 AM EDT [facility] Device ID [id number] 11/07/2024 7:22 AM EDT [facility] Specimen Type POC Capillary 11/07/2024 7:22 AM EDT [facility] Blood Capillary blood specimen / Unknown 11/07/2024 7:21 AM EDT 11/07/2024 7:22 AM EDT Nathaly Nowak MD LAB POINT OF CARE TE ST DOCKED DEVICE UNSOLICITED RESULTS Final Result [facility] [address] [place] [address] * (ABNORMAL) POCT glucose meter (11/07/2024 6:25 [...] Comment 11/07/2024 6:27 AM EDT [facility] First Line Production Supervisor ID Nelda Gerber 11/08/19 6:27 AM EDT [facility] Device ID [id number] 11/07/2024 6:27 AM EDT [facility] Specimen Type POC Capillary 11/07/2024 6:27 AM EDT [facility] Blood Capillary blood specimen / Unknown 11/07/2024 6:25 AM EDT 11/07/2024 6:27 AM EDT Nathaly Nowak MD LAB POINT OF CARE TE ST DOCKED DEVICE UNSOLICITED RESULTS Final Result [facility] [address] [place] [address] * (ABNORMAL) POCT glucose meter (11/07/2024 5:03 AM EDT) [facility] POCT Glucose 139(H) 74 - 99 mg/dL [...] Comment 11/07/2024 5:08 AM EDT [facility] First Line Production Supervisor ID Nelda Gerber 11/08/19 5:08 AM EDT [facility] Device ID [id number] 11/07/2024 5:08 AM EDT [facility] Specimen Type POC Capillary 11/07/2024 5:08 AM EDT [facility] Blood Capillary blood specimen / Unknown 11/07/2024 5:03 AM EDT 11/07/2024 5:08 AM EDT Nathaly Nowak MD LAB POINT OF CARE TE ST DOCKED DEVICE UNSOLICITED RESULTS Final Result Performing Organization Address City/[facility] Co de Phone Number [facility] [address] [place] [address] * (ABNORMAL) POCT glucose meter (11/07/2024 4:16 AM EDT) POCT Glucose 142(H) 74 - 99 mg/dL [...] for testing. Comment 11/07/2024 4:18 AM EDT [facility] First Line Production Supervisor ID Nelda Gerber 11/08/19 4:18 AM EDT [facility] Device ID [id number] 11/07/2024 4:18 AM EDT [facility] Specimen Type POC Capillary 11/07/2024 4:18 AM EDT [facility] Blood Capillary blood specimen / Unknown 11/07/2024 4:16 AM EDT 11/07/2024 4:18 AM EDT Nathaly Nowak MD LAB POINT OF CARE TE ST DOCKED DEVICE UNSOLICITED RESULTS Final Result Performing Organization Address City/[facility]/ZIP Co de Phone Number [facility] [address] [place] [address] * (ABNORMAL) POCT glucose meter (11/07/2024 3:21 [...] Comment 11/07/2024 3:23 AM EDT [facility] First Line Production Supervisor ID Nelda Gerber 11/08/19 3:23 AM EDT [facility] Device ID [id number] 11/07/2024 3:23 AM EDT [facility] Specimen Type POC Capillary 11/07/2024 3:23 AM EDT [facility] Blood Capillary blood specimen / Unknown 11/07/2024 3:21 AM EDT 11/07/2024 3:23 AM EDT Nathaly Nowak MD LAB POINT OF CARE TE ST DOCKED DEVICE UNSOLICITED RESULTS Final Result Performing Organization Address City/[facility] Co de Phone Number [facility] [address] [place] [address] * (ABNORMAL) POCT glucose meter (11/07/2024 2:10 [...] Comment 11/07/2024 2:12 AM EDT [facility] First Line Production Supervisor ID Nelda Gerber 11/08/19 2:12 AM EDT [facility] LAB Device ID [id number] 11/07/2024 2:12 AM EDT [facility] Specimen Type POC Capillary 11/07/2024 2:12 AM EDT [facility] Blood Capillary blood specimen / Unknown 11/07/2024 2:10 AM EDT 11/07/2024 2:12 AM EDT Nathaly Nowak MD LAB POINT OF CARE TE ST DOCKED DEVICE UNSOLICITED RESULTS Final Result Performing Organization Address City/[facility]/ZIP Co de Phone Number [facility] [address] [place] [address] * (ABNORMAL) POCT glucose meter (11/07/2024 1:08 AM EDT) Pathologist [facility] POCT Glucose 135(H) 74 - 99 mg/dL [...] for testing. Comment 11/07/2024 1:10 AM EDT [facility] First Line Production Supervisor ID Nelda Gerber 11/08/19 1:10 AM EDT [facility] Device ID [id number] 11/07/2024 1:10 AM EDT [facility]ALTH[facility] LAB Specimen Type POC Capillary 11/07/2024 1:10 AM EDT [facility] Blood Capillary blood specimen / Unknown 11/07/2024 1:08 AM EDT 11/07/2024 1:10 AM EDT us Nathaly Nowak MD LAB POINT OF CARE TE ST DOCKED DEVICE UNSOLICITED RESULTS Final Result Performing Organization Address City/State/[facility] Co de Phone Number [facility] [address] [place] [id number] * (ABNORMAL) POCT glucose meter (11/07/2024 12:10 AM EDT) Pathologist [facility] POCT Glucose 127(H) 74 - [...] for testing. Comment 11/07/2024 12:13 AM EDT [facility] First Line Production Supervisor ID Nelda Gerber 11/08/19 12:13 AM EDT [facility] Device ID [id number] 11/07/2024 12:13 AM EDT [facility] LAB Specimen Type POC Capillary 11/07/2024 12:13 AM EDT [facility] Blood Capillary blood specimen / Unknown 11/07/2024 12:10 AM EDT 11/07/2024 12:13 AM EDT Nathaly Nowak MD LAB POINT OF CARE TE ST DOCKED DEVICE UNSOLICITED RESULTS Final Result Performing Organization Address City/[facility]/ZIP Co de Phone Number [facility] [address] [place] [address] * (ABNORMAL) POCT glucose meter (11/06/2024 11:14 PM EDT) POCT Glucose 71(L) 74 - 99 mg/dL [...] for testing. Comment 11/06/2024 11:16 PM EDT [facility] First Line Production Supervisor ID Nelda Gerber 11/07/19 11:16 PM EDT [facility] LAB Device ID [id number] 11/06/2024 11:16 PM EDT [facility] Specimen Type POC Capillary 11/06/2024 11:16 PM EDT [facility] Blood Capillary blood specimen / Unknown 11/06/2024 11:14 PM EDT 11/06/2024 11:16 PM EDT us Nathaly Nowak MD LAB POINT OF CARE TE ST DOCKED DEVICE UNSOLICITED RESULTS Final Result [facility] [address] [place] [address] * (ABNORMAL) POCT glucose meter (11/06/2024 10:07 [...] Comment 11/06/2024 10:09 PM EDT [facility] First Line Production Supervisor ID Nelda Gerber 11/07/19 10:09 PM EDT [facility] LAB Device ID [id number] 11/06/2024 10:09 PM EDT [facility] Specimen Type POC Capillary 11/06/2024 10:09 PM EDT [facility] Blood Capillary blood specimen / Unknown 11/06/2024 10:07 PM EDT 11/06/2024 10:09 PM EDT Nathaly Nowak MD LAB POINT OF CARE TE ST DOCKED DEVICE UNSOLICITED RESULTS Final Result Performing Organization Address City/State/[facility] Co de Phone Number [facility] [address] [place] [address] * (ABNORMAL) POCT glucose meter (11/06/2024 8:22 PM EDT) [facility] POCT Glucose 256(H) 74 - 99 mg/dL 11/06/2024 8:25 PM EDT [facility] Comment:Accuracy of a [...] Comment 11/06/2024 8:25 PM EDT [facility] First Line Production Supervisor ID Nelda Gerber 11/07/19 8:25 PM EDT [facility] LAB Device ID [id number] 11/06/2024 8:25 PM EDT [facility] Specimen Type POC Capillary 11/06/2024 8:25 PM EDT [facility] Blood Capillary blood specimen / Unknown 11/06/2024 8:22 PM EDT 11/06/2024 8:25 PM EDT us Nathaly Nowak MD LAB POINT OF CARE TE ST DOCKED DEVICE UNSOLICITED RESULTS Final Result [facility] [address] [place] [address] * (ABNORMAL) POCT glucose meter (11/06/2024 7:31 [...] for testing. Comment 11/06/2024 7:32 PM EDT [facility] First Line Production Supervisor ID Nelda Gerber 11/07/19 7:32 PM EDT [facility] Device ID [id number] 11/06/2024 7:32 PM EDT [facility] Specimen Type POC Capillary 11/06/2024 7:32 PM EDT [facility] Blood Capillary blood specimen / Unknown 11/06/2024 7:31 PM EDT 11/06/2024 7:32 PM EDT us Nathaly Nowak MD LAB POINT OF CARE TE ST DOCKED DEVICE UNSOLICITED RESULTS Final Result Performing Organization Address City/[facility]/ZIP Co de Phone Number [facility] [address] [place] [address] * (ABNORMAL) POCT glucose meter (11/06/2024 6:15 [...] for testing. Comment 11/06/2024 6:17 PM EDT [facility] First Line Production Supervisor ID Estefani Sheth 11/06/2024 6:17 PM EDT [facility]ALTH[facility] LAB Device ID [id number] 11/06/2024 6:17 PM EDT [facility] Specimen Type POC Capillary 11/06/2024 6:17 PM EDT [facility] Blood Capillary blood specimen / Unknown 11/06/2024 6:15 PM EDT 11/06/2024 6:17 PM EDT Nathaly Nowak MD LAB POINT OF CARE TE ST DOCKED DEVICE UNSOLICITED RESULTS Final Result Performing Organization Address City/[facility]/ZIP Co de Phone Number [facility] [address] [place] [address] * (ABNORMAL) POCT glucose meter (11/06/2024 4:57 [...] Comment 11/06/2024 4:58 PM EDT [facility] First Line Production Supervisor ID Estefani Sheth 11/06/2024 4:58 PM EDT [facility] LAB Device ID [id number] 11/06/2024 4:58 PM EDT [facility] Specimen Type POC Capillary 11/06/2024 4:58 PM EDT [facility] Blood Capillary blood specimen / Unknown 11/06/2024 4:57 PM EDT 11/06/2024 4:58 PM EDT Nathaly Nowak MD LAB POINT OF CARE TE ST DOCKED DEVICE UNSOLICITED RESULTS Final Result Performing Organization Address City/[facility]/ZIP Co de Phone Number [facility] [address] [place] [address] * (ABNORMAL) POCT glucose meter (11/06/2024 2:08 PM EDT) [facility] POCT Glucose 253(H) 74 - 99 mg/dL [...] Comment 11/06/2024 2:09 PM EDT [facility] First Line Production Supervisor ID Brigitte Castellon 11/06/2024 2:09 PM EDT [facility] Device ID [id number] 11/06/2024 2:09 PM EDT [facility] Specimen Type POC Capillary 11/06/2024 2:09 PM EDT [facility] Blood Capillary blood specimen / Unknown 11/06/2024 2:08 PM EDT 11/06/2024 2:09 PM EDT us Nathaly Nowak MD LAB POINT OF CARE TE ST DOCKED DEVICE UNSOLICITED RESULTS Final Result Performing Organization Address City/State/[facility] Co de Phone Number [facility] [address] [place] [address] * (ABNORMAL) POCT glucose meter (11/06/2024 12:27 PM EDT) [facility] POCT Glucose 228(H) 74 - 99 mg/dL [...] Comment 11/06/2024 12:28 PM EDT [facility] First Line Production Supervisor ID Jacinta Galloway 11/06/2024 12:28 PM EDT [facility] Device ID [id number] 11/06/2024 12:28 PM EDT [facility] Specimen Type POC Capillary 11/06/2024 12:28 PM EDT [facility] Blood Capillary blood specimen / Unknown 11/06/2024 12:27 PM EDT 11/06/2024 12:28 PM EDT Nathaly Nowak MD LAB POINT OF CARE TE ST DOCKED DEVICE UNSOLICITED RESULTS Final Result [facility] [address] [place] [address] * (ABNORMAL) Tissue Culture and Gram Stain (11/06/2024 11:34 AM EDT) Culture Moderate Growth 7:35 AM EDT [facility] Culture 2+ Enterobacter cloacae complex(A) ANGÉLICA 11/15/2024 7:35 AM EDT [facility] Comment: This isolate has been identified using the FDA Approved [employer] [place] System The organism value for this result has been updated. These results have been appended to the previously preliminary verified report. Edited result: Previously reported as Gram Negative Jesus on 11/07/2024 at 1434 EDT. Culture 2+ Streptococcus mitis/oralis group(A) ANGÉLICA 11/15/2024 7:35 AM EDT [facility] [facility] Comment: This isolate has been identified using the FDA Approved MALDI Guarnicyper CA System The organism value for this result has been updated. These results have been appended to the previously preliminary verified report. Culture 2+ Pasteurella stomatis(A) ANGÉLICA 11/15/2024 7:35 AM EDT [facility] Comment: This result was determined by MALDI tof mass spectrometry using the [employer] database and is for research use only. The organism value for this result has been updated. These results have been appended to the previously preliminary verified report. Gram Stain Result Few Gram negative rods(A) 11/15/2024 7:35 AM EDT [facility] Gram Stain Result Moderate Polymorphonuclear leukocytes(A) 11/15/2024 7:35 AM EDT [facility] Gram Stain Result Few Gram positive cocci in pairs(A) 11/15/2024 7:35 AM EDT [facility] Tissue Topography unknown / Unknown 11/06/2024 11:34 AM EDT 11/06/2024 12:18 PM EDT Comment:Pre-op diagnosis: Surgical wound infection [T81.49XA] [facility] - 11/15/2024 7:35 AM EDT PharmD [...] Nathaly Nowak MD LAB MICROBIOLOGY - GENERAL [facility] Edited Result - Final [facility] [address] [place] [address] * (ABNORMAL) Anaerobic Culture (11/06/2024 11:34 AM EDT) Culture No anaerobes isolated 11/14/2024 1:25 PM EDT [facility] Culture Staphylococcus pseudintermedius( A) 11/14/2024 1:25 PM EDT [facility] Comment: This result was determined by MALDI tof mass spectrometry using the [employer] database and is for research use only. This is an appended report. These results have been appended to a previously final verified report. Tissue Topography unknown / Unknown 11/06/2024 11:34 AM EDT 11/06/2024 12:18 PM EDT Comment:Pre-op diagnosis: Surgical wound infection [T81.49XA] Narrative [facility] - 11/14/2024 1:25 PM EDT [...] Nathaly Nowak MD LAB MICROBIOLOGY - GENERAL [place]AM Edited Result - Final Performing Organization Address [facility] Co de Phone Number [facility] [address] [place] [address] * (ABNORMAL) Routine Culture and Gram Stain (11/06/2024 11:29 AM EDT) Culture Moderate Growth 5:29 PM EDT [facility] Culture Enterobacter cloacae complex(A) 11/08/2024 5:29 PM EDT [facility] Comment: This isolate has been identified using the FDA Approved MALDI Guarnicyper CA System For susceptibility results refer to: - [id number] The organism value for this result has been updated. These results have been appended to the previously preliminary verified report. Gram Stain Result No polymorphonuclear leukocytes seen 11/08/2024 5:29 PM EDT [facility] Gram Stain Result No organisms seen 11/08/2024 5:29 PM EDT [facility] Swab Topography unknown / Unknown 11/06/2024 11:29 AM EDT 11/06/2024 12:19 PM EDT Comment:Pre-op diagnosis: Surgical wound infection [T81.49XA] Nathaly Nowak MD LAB MICROBIOLOGY - GENERAL [place] LAM Final Result Performing Organization Address [facility] Co de Phone Number [facility] [address] [place] [address] * Fungal Culture, Routine (11/06/2024 11:29 AM EDT) Culture No Fungal Growth at 1 Week 11/13/2024 8:29 AM EDT [facility] Swab Topography unknown / Unknown 11/06/2024 11:29 AM EDT 11/06/2024 12:19 PM EDT Comment:Pre-op diagnosis: Surgical wound infection [T81.49XA] us Nathaly Nowak MD LAB MICROBIOLOGY - GENERAL [facility] Final Result [facility] [address] [place] [address] * (ABNORMAL) Anaerobic Culture (11/06/2024 11:29 AM EDT) Culture No anaerobes isolated 11/14/2024 1:25 PM EDT [facility] Culture Streptococcus mitis/oralis group(A) 11/14/2024 1:25 PM EDT [facility] Comment: This result was determined by MALDI tof mass spectrometry using the [employer] database and is for research use only. The organism value for this result has been updated. These results have been appended to the previously preliminary verified report. This is a corrected result. Previous organism was Mixed skin clifton on 11/10/2024 at 0718 EDT. Culture Staphylococcus pseudintermedius( A) 11/14/2024 1:25 PM EDT [facility] Comment: This isolate has been identified using the FDA Approved MALDI Guarnicyper CA System This is an appended report. These results have been appended to a previously final verified report. Swab Topography unknown / Unknown 11/06/2024 11:29 AM EDT 11/06/2024 12:19 PM EDT Comment:Pre-op diagnosis: Surgical wound infection [T81.49XA] Narrative [facility] - 11/14/2024 1:25 PM EDT Mixed Skin Clifton includes Streptococcus mitis/oralis group and Staphylococcus Pseudintermedius, workup requestedby ElizabethD Hunter Alberts Organism Antibiotic Method Susceptibility Streptococcus [...] Edited Result - Final Performing Organization Address City/[facility] Co de Phone Number [facility] [address] [place] [address] * Routine Culture and Gram Stain (11/06/2024 11:28 AM EDT) Culture No growth at day 4 2024 11:24 AM EDT [facility] Gram Stain Result No organisms seen 11/10/2024 11:24 AM EDT [facility] Gram Stain Result No polymorphonuclear leukocytes seen 11/10/2024 11:24 AM EDT [facility] Swab Topography unknown / Unknown 11/06/2024 11:28 AM EDT 11/06/2024 12:20 PM EDT Comment:Pre-op diagnosis: Surgical wound infection [T81.49XA] Nathaly Nowak MD LAB MICROBIOLOGY - GENERAL ORDAna FRITZ Final Result Performing Organization Address [facility] Co de Phone Number [facility] [address] [place] [address] * Fungal Culture, Routine (11/06/2024 11:28 AM EDT) Culture No Fungal Growth at 1 Week 11/13/2024 8:29 AM EDT [facility] Swab Topography unknown / Unknown 11/06/2024 11:28 AM EDT 11/06/2024 12:20 PM EDT Comment:Pre-op diagnosis: Surgical wound infection [T81.49XA] Nathaly Nowak MD LAB MICROBIOLOGY - GENERAL ORDE LAM Final Result Performing Organization Address City/[facility] Co de Phone Number [facility] [address] [place] [address] * Anaerobic Culture (11/06/2024 11:28 AM EDT) Culture No growth at day 4 11/13/2024 12:53 PM EDT [facility] Swab Topography unknown / Unknown 11/06/2024 11:28 AM EDT 11/06/2024 12:20 PM EDT Comment:Pre-op diagnosis: Surgical wound infection [T81.49XA] Nathaly Nowak MD LAB MICROBIOLOGY - GENERAL AT[facility]YA FRITZ Final Result Performing Organization Address [facility] [place] [address] * (ABNORMAL) POCT glucose meter (11/06/2024 10:16 AM EDT) POCT Glucose 194(H) 74 - 99 mg/dL 11/06/2024 10:18 AM EDT [facility] Comment:Accuracy of a glucos e result [...] 11/06/2024 10:18 AM EDT [facility] First Line Production Supervisor ID Elias, Lacy 11/07/19 10:18 AM EDT [facility] Device ID [id number] 11/06/2024 10:18 AM EDT [facility] Specimen Type POC Capillary 11/06/2024 10:18 AM EDT [facility] Blood Capillary blood specimen / Unknown 11/06/2024 10:16 AM EDT 11/06/2024 10:18 AM EDT Nathaly Nowak MD LAB POINT OF CARE TE ST DOCKED DEVICE UNSOLICITED RESULTS Final Result Performing Organization Address City/[facility] Co de Phone Number [facility] [address] [place] [address] * (ABNORMAL) POCT glucose meter (11/06/2024 5:58 [...] Comment 11/06/2024 6:01 AM EDT [facility] First Line Production Supervisor ID Raj Laird 11/07/19 6:01 AM EDT [facility] Device ID [id number] 11/06/2024 6:01 AM EDT [facility] Specimen Type POC Capillary 11/06/2024 6:01 AM EDT [facility] Blood Capillary blood specimen / Unknown 11/06/2024 5:58 AM EDT 11/06/2024 6:01 AM EDT us Nathaly Nowak MD LAB POINT OF CARE TE ST DOCKED DEVICE UNSOLICITED RESULTS Final Result Performing Organization Address City/[facility] Co de Phone Number [facility] [address] [place] [address] * (ABNORMAL) POCT glucose meter (11/06/2024 5:36 [...] Comment 11/06/2024 5:38 AM EDT [facility] First Line Production Supervisor ID Shahid Sanches 11/06/2024 5:38 AM EDT [facility] Device ID [id number] 11/06/2024 5:38 AM EDT [facility] Specimen Type POC Capillary 11/06/2024 5:38 AM EDT [facility] Blood Capillary blood specimen / Unknown 11/06/2024 5:36 AM EDT 11/06/2024 5:38 AM EDT us Nathaly Nowak MD LAB POINT OF CARE TE ST DOCKED DEVICE UNSOLICITED RESULTS Final Result Performing Organization Address City/State/[facility] Co de Phone Number [facility] [address] [place] [address] * (ABNORMAL) Hemoglobin A1c (11/06/2024 1:07 AM EDT) Hemoglobin A1c 7.6(H) <5.7 % 11/06/2024 11:09 AM EDT [facility] Blood Venous blood specimen / Unknown Venipuncture / Unknown 11/06/2024 1:07 AM EDT 11/06/2024 1:26 AM EDT Narrative [facility] - 11/06/2024 11:09 AM EDT HA1C Interpretive Data: Diagnosis of Diabetes: Diabetic > or = 6.5% Pre-diabetic 5.7 to 6.4% Non-diabetic < or = 5.6% Glycemic Targets for Type I and Type II Diabetics: Non- Adults <7.0% Adults <6.0% Children and Adolescents <7.5% Source: [place] [employer]. Standards of medical care in diabetes,2017. Diabetes Care.2017:40 (suppl 1):S1-S135. us Nathaly Nowak MD LAB BLOOD ORDERABLES Final Resu lt Performing Organization Address [facility] Co de Phone Number [facility] [address] [place] [address] * Blood Culture (Aerobic/Anaerobet Set) (11/06/2024 1:07 AM EDT) Culture No growth at day 5 11/11/2024 2:49 AM EDT [facility] Blood Structure of right hand / Unknown Venipuncture / Unknown 11/06/2024 1:07 AM EDT 11/06/2024 2:36 AM EDT Nathaly Nowak MD LAB MICROBIOLOGY - GENERAL ORDE RABONEIDA Final Result Performing Organization Address [facility] Co de Phone Number [facility] [address] [place] [address] * Blood Culture (Aerobic/Anaerobet Set) (11/06/2024 1:07 AM EDT) Culture No growth at day 5 11/11/2024 3:01 AM EDT [facility] Blood Structure of antecubital vein / Unknown Venipuncture / Unknown 11/06/2024 1:07 AM EDT 11/06/2024 2:36 AM EDT us Nathaly Nowak MD LAB MICROBIOLOGY - GENERAL ORDE LAM Final Result Performing Organization Address [facility] Co de Phone Number [facility] [address] [place] [address] * (ABNORMAL) Basic metabolic panel (11/06/2024 1:07 AM EDT) Glucose, Plasma 207(H) 74 - 99 mg/dL 11/06/2024 1:41 AM EDT [facility] BUN, Plasma 20 8 - 23 mg/dL 11/06/2024 1:41 AM EDT [facility] Creatinine, Plasma 0.92 0.70 - 1.20 mg/dL 11/06/2024 1:41 AM EDT [facility] BUN/Creatinine Ratio 22 11/06/2024 1:41 AM EDT [facility] Sodium, Plasma 136 136 - 145 mmol/L 11/06/2024 1:41 AM EDT [facility] Potassium, Plasma 4.5 3.6 - 4.9 mmol/L 11/06/2024 1:41 AM EDT [facility] Chloride, Plasma 104 97 - 107 mmol/L 11/06/2024 1:41 AM EDT [facility] CO2, Plasma 22 22 - 29 mmol/L 11/06/2024 1:41 AM EDT [facility] Anion Gap 10 6 - 16 mmol/L 11/06/2024 1:41 AM EDT [facility] Total Calcium, Plasma 9.0 8.9 - 10.2 mg/dL 11/06/2024 1:41 AM EDT [facility] eGFRcr 92.3 mL/min/1.7 3m*2 11/06/2024 1:41 AM EDT [facility] Comment:Reported eGFRcr in m L/min/1.73m2 is based the CKD-EPI 2020 equation that does not use a race coefficient. Blood Venous blood specimen / Unknown Venipuncture / Unknown 11/06/2024 1:07 AM EDT 11/06/2024 1:12 AM EDT us Nathaly Nowak MD LAB BLOOD ORDERABLES Final Resu lt Performing Organization Address City/[facility]/ZIP Co de Phone Number [facility] [address] [place] [address] * Phosphorus (11/06/2024 1:07 AM EDT) Phosphorus, Plasma 3.2 2.5 - 4.5 mg/dL 11/06/2024 1:41 AM EDT [facility] Blood Venous blood specimen / Unknown Venipuncture / Unknown 11/06/2024 1:07 AM EDT 11/06/2024 1:12 AM EDT us Nathaly Nowak MD LAB BLOOD ORDERABLES Final Resu lt [facility] [address] [place] [address] * Magnesium (11/06/2024 1:07 AM EDT) Magnesium, Plasma 2.2 1.9 - 2.4 mg/dL 11/06/2024 1:41 AM EDT [facility] Blood Venous blood specimen / Unknown Venipuncture / Unknown 11/06/2024 1:07 AM EDT 11/06/2024 1:12 AM EDT us Nathaly Nowak MD LAB BLOOD ORDERABLES Final Resu lt [facility] [address] [place] [address] * (ABNORMAL) CBC (11/06/2024 1:07 AM EDT) WBC Count 9.70 3.70 - 10.30 10*3/uL LAB HEMATOLOGY METHOD 11/06/2024 1:19 AM EDT [facility] RBC Count 2.89(L) 4.60 - 6.10 10*6/uL LAB HEMATOLOGY METHOD 11/06/2024 1:19 AM EDT [facility] HGB 8.8(L) 13.7 - 17.5 g/dL LAB HEMATOLOGY METHOD 11/06/2024 1:19 AM EDT [facility] HCT 26.2(L) 40.0 - 51.0 % LAB HEMATOLOGY METHOD 11/06/2024 1:19 AM EDT [facility] Platelet Count 542(H) 155 - 369 10*3/uL LAB HEMATOLOGY METHOD 11/06/2024 1:19 AM EDT [facility] MCV 91 79 - 98 fL LAB HEMATOLOGY METHOD 11/06/2024 1:19 AM EDT [facility] MCH 30.4 26.0 - 32.0 pg LAB HEMATOLOGY METHOD 11/06/2024 1:19 AM EDT [facility] MCHC 33.6 30.7 - 35.5 g/dL LAB HEMATOLOGY METHOD 11/06/2024 1:19 AM EDT [facility] RDW 13.2 11.5 - 14.5 % LAB HEMATOLOGY METHOD 11/06/2024 1:19 AM EDT [facility] MPV 8.7(L) 8.8 - 12.5 fL LAB HEMATOLOGY METHOD 11/06/2024 1:19 AM EDT [facility] nRBC 0.0 <=0.0 per 100 WBCs LAB HEMATOLOGY METHOD 11/06/2024 1:19 AM EDT [facility] Blood Venous blood specimen / Unknown Venipuncture / Unknown 11/06/2024 1:07 AM EDT 11/06/2024 1:12 AM EDT us Nathaly Nowak MD LAB BLOOD ORDERABLES Final Resu lt Performing Organization Address [facility]/ZIP Co de Phone Number [facility] [address] [place] [address] * Gold Top (11/06/2024 12:58 AM EDT) Extra Hold for add-ons 11/06/2024 3:21 AM EDT [facility] Comment:Auto resulted. Blood Venous blood specimen / Unknown 11/06/2024 12:58 AM EDT 11/06/2024 1:13 AM EDT us Nathaly oNwak MD LAB BLOOD ORDERABLES Final Resu lt Performing Organization Address [facility]/ZIP Co de Phone Number [facility] [address] [place] [address] * Gold Top (11/06/2024 12:58 AM EDT) Extra Hold for add-ons 11/06/2024 3:21 AM EDT [facility] Comment:Auto resulted. Blood Venous blood specimen / Unknown 11/06/2024 12:58 AM EDT 11/06/2024 1:13 AM EDT us Nathaly Nowak MD LAB BLOOD ORDERABLES Final Resu lt Performing Organization Address [facility]/ZIP Co de Phone Number [facility] [address] [place] [address] * Light Green Top (11/06/2024 12:58 AM EDT) Extra Hold for add-ons 11/06/2024 3:21 AM EDT [facility] Comment:Auto resulted. Blood Venous blood specimen / Unknown 11/06/2024 12:58 AM EDT 11/06/2024 1:13 AM EDT us Nathaly Nowak MD LAB BLOOD ORDERABLES Final Resu lt Performing Organization Address [facility] Co de Phone Number [facility] [address] [place] [address] * Light Blue Top (11/06/2024 12:58 AM EDT) Extra Hold for add-ons 11/06/2024 3:21 AM EDT [facility] Comment:Auto resulted. Blood Venous blood specimen / Unknown 11/06/2024 12:58 AM EDT 11/06/2024 1:13 AM EDT us Nathaly Nowak MD LAB BLOOD ORDERABLES Final Resu lt Performing Organization Address [facility] Co de Phone Number [facility] [address] [place] [address] * Light Blue Top (11/06/2024 12:58 AM EDT) Extra Hold for add-ons 11/06/2024 3:21 AM EDT [facility] Comment:Auto resulted. Blood Venous blood specimen / Unknown 11/06/2024 12:58 AM EDT 11/06/2024 1:13 AM EDT us Nathaly Nowak MD LAB BLOOD ORDERABLES Final Resu lt Performing Organization Address [facility] de Phone Number [facility] [address] [place] [address] * (ABNORMAL) POCT glucose meter (11/06/2024 12:45 [...] Comment 11/06/2024 12:48 AM EDT [facility] First Line Production Supervisor ID Raj Laird 11/07/19 12:48 AM EDT [facility] Device ID [id number] 11/06/2024 12:48 AM EDT [facility] Specimen Type POC Capillary 11/06/2024 12:48 AM EDT [facility] Blood Capillary blood specimen / Unknown 11/06/2024 12:45 AM EDT 11/06/2024 12:48 AM EDT Nathaly Nowak MD LAB POINT OF CARE TE ST DOCKED DEVICE UNSOLICITED RESULTS Final Result Performing Organization Address City/State/[facility] Co de Phone Number [facility] [address] [place] [address] documented in this encounter Visit Diagnoses Diagnosis [...] needed, Starting on Mon11/06/24 at 0753, Until [facility] 11/14/24 at 1804, Routine, On Unit - Preprocedure, line care sodium chloride 0.9 % flush 10 mL 10 mL, Intravenous, Every 12 hours, First dose on Mon11/09/24 at 1515, Until Discontinued, Routine Given 11/14/2024 [...] Discontinued, Routine 0538 (Not Given - Provider: Jonathna Vale RN - Reason: Patient/family refused)1356 (Given [...] on Mon11/13/24 at 0715, Until Discontinued, Routine 08 (New Bag - Provider: Devora Bo) 0918 (Canceled Entry - Provider: Bianca Knight, PharmD - Comment: due at 0900)0930 (New Bag - Provider: Yazmin Bhatt, CHRISTIAN) insulin glargine-yfgn 100 UNIT/ML injection 28 Units 28 Units, Subcutaneous, Nightly, First dose on Mon11/07/24 at 2100, Until Discontinued, Routine 2125 (Given - Provider: Jonathan Vale, CHRISTIAN) 2031 (Given - Provider: Jonathan Vale, CHRISTIAN) insulin lispro (Admelog) 100 units/mL injection - Correction - Resistant Dose 0-10 Units, Subcutaneous, 3 times daily with meals, First dose on Mon11/07/24 at 0945, Until Discontinued, Routine 09 (Not Given - Provider: Devora Bo - [...] Discontinued, Routine 0938 (Given - Provider: Devora Camarenab)1356 (Given - Provider: Devora Camarenab)1805 (Given - Provider: Devora Camarenab)212 (Given - Provider: Jonathan Vale RN) 0838 (Given - Provider: Devora Bo)1317 (Given - Provider: Devora Camarenab)1753 (Given - Provider: Devora Bo)203 (Given - Provider: Jonathan Vale, CHRISTIAN) 0856 (Given - Provider: Yazmin Bhatt RN)1354 [...] Provider: Devora Bo)1805 (Given - Provider: Devora Bo)2122 (Given - Provider: Jonathan Vale, CHRISTIAN) micafungin (Mycamine) 150 mg in sodium chloride 0.9 % 100 mL IVPB 150 mg, Intravenous, Every 24 hours, First dose (after last modification) on Mon11/13/24 at 0015, Until Discontinued, at 125 mL/hr, Administer over 60 Minutes, Routine 2326 (New Bag - Provider: Jonathan Vale RN) 2328 (New Bag - Provider: Jonathan Vale, CHRISTIAN) mupirocin (Bactroban) 2 % ointment 1 Application Each Nostril, 2 times daily, 10 doses, First dose on Mon11/09/24 at 2100, Last dose on Mon11/14/24 at 0900, Routine 0940 (Given - Provider: Devora Bo)2124 (Given - Provider: Jonathan Vale RN) 0840 (Not Given - Provider: Devora Bo - Reason: Patient/family refused)2031 (Given - Provider: Jonathan Vale, CHRISTIAN) 0856 (Given - Provider: Yazmin Bhatt RN) [...] Until Discontinued, Routine 1805 (Given - Provider: Devroa Bo) 1753 (Given - Provider: Devora Bo) [...] CHRISTIAN) sodium chloride 0.9 % flush 10 mL(Linked [...] Vale RN) 1210 (Given - Provider: Yazmin Bhatt, CHRISTIAN) sodium chloride 0.9 % flush 10 mL(Linked Group 2) 10 mL, Intravenous, Every 12 hours, First dose on Mon11/06/24 at 0800, Until Discontinued, Routine, On Unit - Preprocedure 0939 (Given - Provider: Devora Bo)2126 (Given - Provider: Jonathan Vale RN) 0840 (Given - Provider: Devora Bo)203 (Given - [...] vac) 0903 (Not Given - Provider: Yazmin Bhatt, CHRISTIAN - Reason: Hold for condition: must add [...] documented as of this encounter 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
--- OUTSIDE RECORDS SUMMARY | 2024-11-06 10:08 | XMS_ITS | Encounter Summary ---
Author Organization Healthcare Address [address] [place] [address] Care Team Providers Care Honey Producer Name Role Phone Asad Victor MD Primary Care Provider + [phone] Reason for Visit * Reason Comments Post-op Problem Wound Check * Auth/Cert (Routine) Specialty Diagnoses / Procedures Referred By Contac t Referred To Contact Diagnoses Wound infection Post-op Vasc Sx wounds - sx on 10/17 at Nathaly Nowak MD [address] [address] Phone: tel: fax: [facility] Emergency [facility] [address] [place] [address] Phone: tel: Referral ID Status Reason Start Date Expiration Date Visits Re quested Visits Authorized [id number] 1 1 Encounter Details Date Type Department Care Team (Late st Contact Info) Description 11/06/2024 10:08 AM EDT - 11/06/2024 11:38 AM EDT Surgery [facility] OPERATING ROOM [address] [place] [address] Nathaly Nowak MD [id number] [place] [address] Left groin exploration and washout, [...] drink first t dino in the morning (EYE-COAL OR ORE CONTROLLER) to steady your nerves or to get rid of a hangover? 0 10/18/2021 CAGE Questionnaire Score 0 022 Utilities Answer Date Recorded In the past 12 months has [employer], gas, oil, or water [employer] threatened to shut off services in your [...] Carmona with any questions or concerns at [phone]. It is important that you get your [...] Note Bev Borja 64 y.o. male CSN: [id number] Admission: 11/05/2024 9:45 PM Primary Problem: Wound infection Primary Platform Power Technician: Primary Caregiver: Self Assistance Available at [...] last 30 days Follow-up: [facility] [address] [facility] [address] Go to Infusion Clinic. Please arrive at [address] [facility] [address] Go to Wound care clinic. First appointment is 1:10 pm. Please call [phone] with scheduling concerns. Discharge Transportation: Transportation Anticipated: medical transport Transportation Home at Discharge: Medical Transport Follow Up Transport: Transportation Needed to Follow up Appoinments: Medical Transport Additional Comments: Patient discharging home. No other SW needs identified. Mariia Monterroso LABORATORY IMMUNOLOGIST * Discharge Summary - Melecio Echevarria DO - 11/14/2024 12:46 PM EDT Hospitalization Admit Date/Time: 11/05/2024 9:45 PM Admitting Attending: Nathaly Nowak Discharge Date: 11/14/2024 Discharge Attending Physician: Nathaly Nowak MD PCP name and Address: Asad Victor MD (Inactive) [address] [place] [address] / [address] [address] Referring provider name and address: Wade Cowart, DO [address] [place] [address] Chief Concern, Brief History of Present Illness, and Hospital Course Mr. Borja is a 64 y/o male that presented to [facility] on 11/06/2024 for surgical wound infection [...] Your Medications These medications [facility] to [facility] Infusion Services - GLENDA Solorzano - [address], [place] [id number] ertapenem injection micafungin injection Discharge Diagnosis Medical [...] [facility] 11/26/2024 2:30 PM [facility] 2 [facility] 11/26/2024 3:20 PM [facility] Schuster [facility] 11/29/2024 2:30 PM Oscar Appiah MD [id number] [place] Test Results Pending At Discharge Pending Labs [...] a 64 y/o male that presented to [facility] on 11/06/2024 for surgical wound infection [...] portions of the procedure(s) and immediately available [facility] services the entire duration. See resident note for details. * Progress Notes - Mariia Monterroso - 11/13/2024 1:57 PM EDT Case Management Adult Progress Note Bev Borja 64 y.o. male CSN: [id number] Admission: 11/05/2024 9:45 PM Primary Problem: Wound infection Wound vac to be delivered today by at bedside. SW sent referral/orders to [facility] wound care center (fax [phone]) and infusion clinic (fax [phone]). Plan to discharge tomorrow. SW will continue to follow. Mariia Monterroso LABORATORY IMMUNOLOGIST * Progress Notes - Bianca Knight PharmD - 11/13/2024 12:55 PM EDT Vancomycin therapy has been stopped per ID recommendation. Pharmacist will sign off from dosing and monitoring vancomycin. Please re- consult a pharmacist if more vancomycin is indicated. Bianca Knight PharmD, [facility] * Progress Notes - Ailin Levy MBBS [...] Lumen PICC Antimicrobial Regimen: IV Ertapenem 1g [id number] start date:11/06/2024 Projected End date:12/18/2024 IV Micafungin 150mg [id number] Start date: 11/12/2024 Projected End Date: 12/24/2024 [...] OPAT Team Attn: Dr Kraus Fax #: [phone] Appointments: (Dr Appiah 08/02/2024 at 2.30pm) at: [facility]: [address] [place] [address] (Select Option 3 for IV Antibiotic / PICC line related issues) For questions regarding OPAT prior to discharge, reach out to the OPAT team via SHERPA assistant Secure Chat (Group: OPAT Referral Team). For all questions regarding OPAT after discharge should be directed to the OPAT Team at (Select Option 3 for IV Antibiotics/PICC Issues) between 8am-5pm. After 5 pm, or during weekends/ holidays, please call the paging central station operator at to reach the on-call ID [...] from the original note were not included. [facility] Department of Surgery Division of Vascular Surgery Surgery Progress Note 11/13/24 Bev Borja Subjective Subjective: HPI 64yoM PMHx COPD, T2DM, HLD, HTN, RLS, CAD s/p PCI (on Xarelto) s/p pacemaker c/b left SANDIP pseudoaneurysm s/p thrombin injection 09/21/24, CLI s/p left femoral endarterectomy with EIA/DOG OR HORSE RACING OFFICIAL stenting 10/17/24, [facility] 09/21/24, CLI s/p left femoral endarterectomy with EIA/DOG OR HORSE RACING OFFICIAL stenting 10/17/24, [facility] [...] the findings. Cardiac Device Check - PRE-OR [facility] EP-Device Clinic: Pre-operative CIED Report Assessment and Sara-Procedural Reommendations: Name: Bev Borja Date: 10/17/2024 : 1960 Age: 64 y.o. Patient has a Belt Dresser: Berger PROGRESSIVE CARE UNIT REGISTERED NURSE-PM Remaining battery longevity adequate. Lead integrity [...] recommendations. Supporting reports can be found in [employer] media file. Micro: Susceptibility data from last [...] Units Date/Time Tissue Culture and Gram Stain [[id number]] (Abnormal) (Susceptibility) Collected: 11/06/24 1134 Order Status: Completed Specimen: Tissue from Other (specify site) Updated: 11/12/24 1334 Culture Moderate Growth 2+ Enterobacter cloacae complex Comment: This isolate has been identified using the FDA Approved LAN-Poweryper CA System The organism value for this result has been updated. These results have been appended to the previously preliminary verified report. Edited result: Previously reported as Gram Negative Jesus on 11/07/2024 at 1434 EDT. 2+ Streptococcus mitis/oralis group Comment: This isolate has been identified using the FDA Approved MALDI Dovoyper CA System The organism value for this result has been updated. These results have been appended to the previously preliminary verified report. 2+ Pasteurella stomatis Comment: This result was determined by MALDI tof mass spectrometry using the [employer] database and is for research use only. [...] stewardship team. Comprehensive GI Panel by PCR [[id number]] (Normal) Collected: 11/12/24 0950 Order Status: Completed [...] if clinically indicated. Clostridiodes (Clostridium) difficile PCR [[id number]] (Normal) Collected: 11/12/24 0950 Order Status: Completed [...] high complexity clinical laboratory testing. Anaerobic Culture [[id number]] Collected: 11/06/24 1128 Order Status: Completed Specimen: Swab from Other (specify site) Updated: 11/12/24 1118 Culture No growth at day 4 Fungal Culture, Tissue and ISIDRO [[id number]] (Abnormal) Collected: 11/06/24 1134 Order Status: Completed Specimen: Tissue from Other (specify site) Updated: 11/12/24 1033 Culture Reading Mycological 4 Weeks Rare Tennga Sana parapsilosis Comment: This isolate has been identified using the FDA Approved MALDI Dovoyper CA System The organism value for this result has been updated. These results have been appended to the previously preliminary verified report. Edited result: Previously reported as Yeast on 11/11/2024 at 1317 EDT. ISIDRO No fungal elements seen Additional Susceptibilities and/or Identification [[id number]] Collected: 11/11/24 1240 Order Status: Completed Specimen: Tissue from Wound (specify site): Additional Susceptibilities and/or Identification [[id number]] Collected: 11/11/24 1238 Order Status: Completed Specimen: Tissue from Wound (specify site): Additional Susceptibilities and/or Identification [[id number]] Collected: 11/11/24 1237 Order Status: Completed Specimen: Tissue from Wound (specify site): AFB Culture, Non Respiratory Source and Acid Fast Stain [[id number]] Collected: 11/06/24 1134 Order Status: Completed Specimen: Tissue from Other (specify site) Updated: 11/11/24 0938 AFB Culture No Mycobacterial Growth <1 Week Acid Fast Stain No acid fast bacilli seen Blood Culture (Aerobic/Anaerobet Set) [[id number]] Collected: 11/06/24106 Order Status: Completed Specimen: Blood from AC, Left Updated: 11/11/24 0301 Culture No growth at day 5 Blood Culture (Aerobic/Anaerobet Set) [[id number]] Collected: 11/06/24106 Order Status: Completed Specimen: Blood [...] [facility]. [facility] [...] to stay a facility, plan for [facility] daily IV abx. Plan for [...] Prevent or Manage Pain Flowsheets (Taken 11/11/2024 4549 by Jonathan Vale RN) Sensory Stimulation Regulation: care clustered lighting decreased quiet environment promoted Medication Review/Management: medications reviewed * Consults - Anabel Ovalle RD - 11/12/2024 9:59 AM EDT Adult Nutrition Evaluation Note Bev Borja 64 y.o. male CSN: [id number] Room/Bed 682/682B Nutrition evaluation type: assessment Reason for evaluation: LOS Hospital course: 64 y.o. male with PMHx significant for COPD, CAD s/p PCI (on Xarelto) s/p pacemaker c/b left SANDIP pseudoaneurysm s/p thrombin injection 09/21/24, chronic limb ischemia s/p left femoralendarterectomy with external iliac/common femoral artery stenting 10/17/24, T2DM, HLD, HTN, RLS who presented to the [facility] on 11/05/2024 with problems with his [...] (Room air) O2 Delivery Method: Face tent [place] Coma Scale Score: 15 Loi Scale Score: [...] (194 lb 3.6 oz) BMI (Calculated): 30.41 [place] Body Weight (kg): 67.3 Percent [place] Body Weight: 131 Adjusted Body Weight (kg): [...] oz) Estimated Needs: Kcal/ K-30 Kcal Provided: 9825-7127 Kcal Needs Based On: Adjusted weight Gm Protein/ Kg : 1.2-1.5 Protein Provided: 87-108 Protein Needs Based On: Adjusted weight Metabolic Cart Study Results: Current Nutrition Intake: Diet Order: Adult Diet Diet Texture: Regular Adult Carbohydrate Restriction: Consistent CHO 1 (7552-0269 Jatinder, 65 g/meal) Percent Meals Eaten (%): [...] ENDARTERECTOMY N/A 2017 Endarterectomy Carotid Artery from Physician Practice [facility] CORONARY ANGIOPLASTY Left Coronary Angiography With Concomitant Left Heart Catheterization from Physician Practice [facility] CORONARY ARTERY BYPASS GRAFT N/A 2018 3V ELBOW SURGERY Right ENDARTERECTOMY Left 10/17/2024 common/SFA/Profunda thromboendarterectomy, EIA/DOG OR HORSE RACING OFFICIAL stent HERNIA REPAIR KNEE ARTHROSCOPY Left VASCULAR SURGERY Left 09/21/2024 DOG OR HORSE RACING OFFICIAL pseudoaneurym injection [3] Social History Tobacco Use [...] 09/21/24, CLI s/p left femoral endarterectomy with EIA/DOG OR HORSE RACING OFFICIAL stenting 10/17/24, [facility] 09/21/24, CLI s/p left femoral endarterectomy with EIA/DOG OR HORSE RACING OFFICIAL stenting 10/17/24, who [facility] [...] the findings. Cardiac Device Check - PRE-OR [facility] EP-Device Clinic: Pre-operative CIED Report Assessment and Sara-Procedural Reommendations: Name: Bev Borja Date: 10/17/2024 : 1960 Age: 64 y.o. 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 Lead integrity [...] recommendations. Supporting reports can be found in [employer] media file. Micro: Susceptibility data from last [...] Units Date/Time Tissue Culture and Gram Stain [[id number]] (Abnormal) (Susceptibility) Collected: 11/06/24 1134 Order Status: Completed Specimen: Tissue from Other (specify site) Updated: 11/12/24 1334 Culture Moderate Growth 2+ Enterobacter cloacae complex Comment: This isolate has been identified using the FDA Approved [employer] CA System The organism value for this result has been updated. These results have been appended to the previously preliminary verified report. Edited result: Previously reported as Gram Negative Jesus on 11/07/2024 at 1434 EDT. 2+ Streptococcus mitis/oralis group Comment: This isolate has been identified using the FDA Approved [employer] CA System The organism value for this result has been updated. These results have been appended to the previously preliminary verified report. 2+ Pasteurella stomatis Comment: This result was determined by MALDI tof mass spectrometry using the [employer] database and is for research use only. [...] stewardship team. Comprehensive GI Panel by PCR [[id number]] (Normal) Collected: 11/12/24 0950 Order Status: Completed [...] if clinically indicated. Clostridiodes (Clostridium) difficile PCR [[id number]] (Normal) Collected: 11/12/24 0950 Order Status: Completed [...] high complexity clinical laboratory testing. Anaerobic Culture [[id number]] Collected: 11/06/24 1128 Order Status: Completed Specimen: Swab from Other (specify site) Updated: 11/12/24 1118 Culture No growth at day 4 Fungal Culture, Tissue and ISIDRO [[id number]] (Abnormal) Collected: 11/06/24 1134 Order Status: Completed Specimen: Tissue from Other (specify site) Updated: 11/12/24 1033 Culture Reading Mycological 4 Weeks Rare Tennga Sana parapsilosis Comment: This isolate has been identified using the FDA Approved LAN-Poweryper CA System The organism value for this result has been updated. These results have been appended to the previously preliminary verified report. Edited result: Previously reported as Yeast on 11/11/2024 at 1317 EDT. ISIDRO No fungal elements seen Additional Susceptibilities and/or Identification [[id number]] Collected: 11/11/24 1240 Order Status: Completed Specimen: Tissue from Wound (specify site): Additional Susceptibilities and/or Identification [[id number]] Collected: 11/11/24 1238 Order Status: Completed Specimen: Tissue from Wound (specify site): Additional Susceptibilities and/or Identification [[id number]] Collected: 11/11/24 1237 Order Status: Completed Specimen: Tissue from Wound (specify site): AFB Culture, Non Respiratory Source and Acid Fast Stain [[id number]] Collected: 11/06/24 1134 Order Status: Completed Specimen: Tissue from Other (specify site) Updated: 11/11/24 0938 AFB Culture No Mycobacterial Growth <1 Week Acid Fast Stain No acid fast bacilli seen Blood Culture (Aerobic/Anaerobet Set) [[id number]] Collected: 11/06/24106 Order Status: Completed Specimen: Blood from AC, Left Updated: 11/11/24 0301 Culture No growth at day 5 Blood Culture (Aerobic/Anaerobet Set) [[id number]] Collected: 11/06/24106 Order Status: Completed Specimen: Blood [...] On 11/06, pt went to the [facility] vascular surgery for left groin exploration [...] mL IVPB (vial adapter required) 2 g [id number] Reid Daniels MD 36.7 mL/hr at 11/12/24 [...] PM Anthony Reyes MD 0.4 mg at 128920 Vancomycin HCl in NaCl (Vancocin) IVPB 1,000 [...] send him home on micafungin as Rare Tennga Sana parapsilosis grew and we do not [...] Maintenance of Seizure Control 11/11/20242347 by Jonathan aVle RN Outcome: Ongoing, [...] portions of the procedure(s) and immediately available [facility] the entire duration. See resident note for details. * Progress Notes - Mariia Monterroso - 11/11/2024 1:10 PM EDT Case Management Adult Progress Note Bev Borja 64 y.o. male CSN: [id number] Admission: 11/05/2024 9:45 PM Primary Problem: Wound infection Patient refusing inpatient placement for IV abx. [facility] infusion clinic can provide treatment. Face sheet, IV abx orders, and order for PICC care/labs/dressing changes need to be faxed to [phone]. Voicemail left with wound care clinic. Wound vac approved per , delivery pending. Crysll continue to follow. Mariia Monterroso LABORATORY IMMUNOLOGIST * Progress Notes - Dotty Sethi MD [...] the findings. Cardiac Device Check - PRE-OR [facility] EP-Device Clinic: Pre-operative CIED Report Assessment and Sara-Procedural Reommendations: Name: Bev Borja Date: 10/17/2024 : 1960 Age: 64 y.o. Patient has a Belt Dresser: Berger PROGRESSIVE CARE UNIT REGISTERED NURSE-PM Remaining battery longevity adequate. Lead integrity [...] recommendations. Supporting reports can be found in [employer] media file. Micro: Susceptibility data from last [...] Non Respiratory Source and Acid Fast Stain [[id number]] Collected: 11/06/24 1134 Order Status: Completed Specimen: Tissue from Other (specify site) Updated: 11/11/24 0938 AFB Culture No Mycobacterial Growth <1 Week Acid Fast Stain No acid fast bacilli seen Blood Culture (Aerobic/Anaerobet Set) [[id number]] Collected: 11/06/24106 Order Status: Completed Specimen: Blood from AC, Left Updated: 11/11/24 0301 Culture No growth at day 5 Blood Culture (Aerobic/Anaerobet Set) [[id number]] Collected: 11/06/24 010 Order Status: Completed Specimen: Blood from Hand, Right Updated: 11/11/24 0249 Culture No growth at day 5 Anaerobic Culture [[id number]] Collected: 11/06/24 1128 Order Status: Completed Specimen: Swab from Other (specify site) Updated: 11/10/24 1441 Culture No growth at day 4 Routine Culture and Gram Stain [[id number]] Collected: 11/06/24 1128 Order Status: Completed Specimen: Swab from Other (specify site) Updated: 11/10/24 1124 Culture No growth at day 4 Gram Stain Result No organisms seen No polymorphonuclear leukocytes seen Anaerobic Culture [[id number]] (Abnormal) Collected: 11/06/24 112 Order Status: Completed Specimen: Swab from Other (specify site) Updated: 11/10/24 0718 Culture No anaerobes isolated Mixed skin clifton Comment: The organism value for this result has been updated. These results have been appended to the previously preliminary verified report. Narrative: Mixed Skin [place] includes Streptococcus mitis/oralis group and Staphylococcus Pseudintermedius Anaerobic Culture [[id number]] (Abnormal) Collected: 11/06/24 1134 Order Status: Completed [...] OSH. [facility] [...] mL IVPB (vial adapter required) 2 g [id number] Reid Daniels MD 36.7 mL/hr at 11/11/24 [...] Subcutaneous TID with meals Redi Daniels MD 2 Units at 11/10/241651 insulin [...] daily Anthoyn Reyes MD 500 mg at 11/11/24825 metoprolol [...] PM Anthony Reyes MD 0.4 mg at 251279 Vancomycin HCl in NaCl (Vancocin) IVPB 1,000 [...] 09/21/24, CLI s/p left femoral endarterectomy with EIA/DOG OR HORSE RACING OFFICIAL stenting 10/17/24, [facility] 09/21/24, CLI s/p left femoral endarterectomy with EIA/DOG OR HORSE RACING OFFICIAL stenting 10/17/24, [facility] [...] Edited by: Reid Daniels MD at 11/11/2024 0842 Dispo: Continue Current Level of Care Reid [...] to follow, Submitted by: Kalpesh Lord PharmD, [facility] 11/10/2024 12:45 PM * Care Plan - [...] 09/21/24, CLI s/p left femoral endarterectomy with EIA/DOG OR HORSE RACING OFFICIAL stenting 10/17/24, [facility] [...] Labs reviewed. Assessment/Plan Assessment and Plan: Bev oBrja is a 64yo M PMHx COPD, T2DM, HLD, HTN, RLS, CAD s/p PCI (on Xarelto) s/p pacemaker c/b left SANDIP pseudoaneurysm s/p thrombin injection 09/21/24, CLI s/p left femoral endarterectomy with EIA/DOG OR HORSE RACING OFFICIAL stenting 10/17/24, [facility] [...] Barraza RN Authorized by: Nathaly Nowak MD [place] Protocol: Verbal consent obtained?: Yes Written consent [...] selection rationale: Left pacemaker Catheter Lot #: [id number] Catheter casual shoe inspector: Halalati Catheter placed: Single lumen Catheter size: 4 [...] 09/21/24, CLI s/p left femoral endarterectomy with EIA/DOG OR HORSE RACING OFFICIAL stenting 10/17/24, who presented to [facility] 11/05/2024 with wound infection. 11/06/24: L groin/thigh washout and debridement. No arterial involvement noted. Interval: NAEO. Patient's dressing changed today. He reports his appetite is decreased but he denies n/v. He reports he just has no interest in eating or drinking. Pain well controlled. Edited by: Reid Daniesl MD at 11/09/2024 1025 Review of Systems [...] 09/21/24, CLI s/p left femoral endarterectomy with EIA/DOG OR HORSE RACING OFFICIAL stenting 10/17/24, who [facility] [...] student [facility] Cosigned by Nathaly Nowak MD at 11/11/2024 [...] Patient reports he went to [facility] 12th floor via w/c yesterday to visit [...] Mobility: Ambulatory- community (was utilizing scooter at [employer] since discharge) Mobility [place]: Independent gait with device History of Falls: [...] Mobility Bed Mobility Exam: Scooting/Bridging Level of [place]: Modified independence Bed Mobility Exam: Supine to Sit Level of [place]: Modified [place] Transfers Transfer Exam: Sit to stand Level of [place]: Modified independence Assistive Device: Rollator Transfer Exam: Stand to Sit Level of [place]: Modified independence Assistive Device: Rollator Ambulation Device: [...] maintain/improve functional mobility and endurance. Standardized Assessments [facility]lic[facility] Mobility Assessment Difficulty patient has [...] 3-5 steps with a railing?: A little [facility] Mobility Assessment Total : 22 [...] Mobility Ambulatory- community (was utilizing scooter at [employer] since discharge) Mobility [place] Independent gait with device History of Falls [...] distal to knee) BED MOBILITY Level of [place] Physical/Non-physical Assist Adaptive Equipment Utilized Scooting/ Bridging Modified independence Supine to Sit Modified [place] TRANSFERS Level of [place] Physical/Non-physical Assist Adaptive Equipment Utilized Sit to Stand Modified independence Rollator Stand to sit Modified independence Rollator Toilet Transfer Modified independence Grab bar FUNCTIONAL MOBILITY Ambulation Modified independent 200ft x2 with seated rest break between bouts; RPE 5-7/10. Cues forsafety with rollator brakes. Rollator Comments BALANCE Postural Appearance Posture: Within Functional Limits Level of [place] Balance Support Static Sit Independent Feet supported [...] needed areas of treatment space. Level of [place] Interventions Grooming Modified independent Standing sinkside Pt [...] Note Bev Borja 64 y.o. male CSN: [id number] Admission: 11/05/2024 9:45 PM Primary Problem: Wound [...] follow and assist as needed. Mariia Monterroso LABORATORY IMMUNOLOGIST * Progress Notes - Bianca Knight PharmD [...] to follow, Submitted by: Bianca Knight, ElizabethD, [facility] 11/08/2024 11:15 AM * Progress Notes [...] 09/21/24, CLI s/p left femoral endarterectomy with EIA/DOG OR HORSE RACING OFFICIAL stenting 10/17/24, [facility] [...] completed 10/19 Pseudoaneurysm of left femoral artery ([facility]) COPD (chronic obstructive pulmonary disease) ([facility] [facility]) Overview Signed 10/18/2021 7:30 PM by Gallo Gallardo MD Not on home inhalers A-fib ([facility]) Overview Addendum 10/19/2021 10:39 AM by Giovanna Junior APRN Hold anticoagulation Metoprolol restarted BPH (benign prostatic hyperplasia) Overview Addendum 10/19/2021 10:41 AM by Giovanna Junior APRN Flomax restarted Subarachnoid hemorrhage ([facility]) Overview Addendum 10/20/2021 8:23 AM by Giovanna Junior APRN Left frontal, right occipital NSGY consulted - Repeat CTH showing slight worsening of tSAH - no need for further imaging, will continue to follow clinically 10/20: spoke with NSGY via phone and stated to hold ASA and Xarelto for 2 weeks Closed compression fracture of L3 lumbar vertebra, initial encounter ([facility]) Overview Signed 10/18/2021 7:35 PM by Gallo [...] 09/21/24, CLI s/p left femoral endarterectomy with EIA/DOG OR HORSE RACING OFFICIAL stenting 10/17/24, [facility] of Care Melecio Echevarria DO Cosigned by Ntahaly Nowak MD at 11/08/2024 9:47 AM EDT [...] 1960 Age: 64 y.o. 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 Lead integrity [...] recommendations. Supporting reports can be found in [employer] media file. Micro: Susceptibility data from last 90 days. Collected Specimen Info Organism 11/06/24 Tissue from Other (specify site) Gram Negative Jesus 11/06/24 Swab from Other (specify site) Enterobacter cloacae complex Results Procedure Component Value Units Date/Time Fungal Culture, Routine [[id number]] Collected: 11/06/24 1128 Order Status: Completed Specimen: Swab from Other (specify site) Updated: 11/08/24 0919 Culture No Fungal Growth <1 Week Fungal Culture, Routine [[id number]] Collected: 11/06/24 1129 Order Status: Completed Specimen: Swab from Other (specify site) Updated: 11/08/24 0919 Culture No Fungal Growth <1 Week Fungal Culture, Tissue and ISIDRO [[id number]] Collected: 11/06/24 1134 Order Status: Completed Specimen: Tissue from Other (specify site) Updated: 11/08/24 0912 Culture Reading Mycological 4 Weeks No Fungal Growth <1 Week ISIDRO No fungal elements seen Blood Culture (Aerobic/Anaerobet Set) [[id number]] Collected: 11/06/24 0107 Order Status: Completed Specimen: Blood from AC, Left Updated: 11/08/24 0302 Culture No growth at day 2 Blood Culture (Aerobic/Anaerobet Set) [[id number]] Collected: 11/06/24 0107 Order Status: Completed Specimen: Blood from Hand, Right Updated: 11/08/24 0302 Culture No growth at day 2 Tissue Culture and Gram Stain [[id number]] (Abnormal) Collected: 11/06/241133 Order Status: Completed Specimen: [...] in pairs Routine Culture and Gram Stain [[id number]] (Abnormal) Collected: 11/06/241128 Order Status: Completed Specimen: Swab from Other (specify site) Updated: 11/07/24 1426 Culture Moderate Growth Enterobacter cloacae complex Comment: This isolate has been identified using the FDA Approved [employer] CA System The organism value for this result has been updated. These results have been appended to the previously preliminary verified report. Gram Stain Result No polymorphonuclear leukocytes seen No organisms seen AFB Culture, Non Respiratory Source and Acid Fast Stain [[id number]] Collected: 11/06/241133 Order Status: Completed Specimen: Tissue from Other (specify site) Updated: 11/07/24 1404 Acid Fast Stain No acid fast bacilli seen Routine Culture and Gram Stain [[id number]] Collected: 11/06/241127 Order Status: Completed Specimen: Swab from Other (specify site) Updated: 11/07/24 0855 Culture No growth at day 1 Gram Stain Result No organisms seen No polymorphonuclear leukocytes seen Anaerobic Culture [[id number]] Collected: 11/06/241127 Order Status: Sent Specimen: Swab from Other (specify site) Updated: 11/06/24 1220 Abscess Culture and Gram Stain [[id number]] Collected: 11/06/241127 Order Status: Canceled Specimen: Swab from Other (specify site) Updated: 11/06/24 1220 Anaerobic Culture [[id number]] Collected: 11/06/241128 Order Status: Sent Specimen: Swab from Other (specify site) Updated: 11/06/24 1219 Abscess Culture and Gram Stain [[id number]] Collected: 08/13/25 1129 Order Status: Canceled Specimen: Swab from Other (specify site) Updated: 11/06/24 1219 Anaerobic Culture [[id number]] Collected: 11/06/24 1134 Order Status: Sent Specimen: [...] On 11/06, pt went to the [facility] vascular surgery for left groin exploration [...] the time spent on the encounter was [id number] providing direct patient care, counseling for the [...] mL IVPB (vial adapter required) 2 g [id number] Reid Daniels MD 36.7 mL/hr at 11/08/24 [...] IV Access: pending Patient Specific Outpatient Circumstances: [address] [place] [address] Contact information Bev Borja [phone] (home) Extended Emergency Contact Information Primary Emergency Contact: Patti Hill Relation: Sister Fiscal Agent needed? No Outpatient services (including home infusion, [...] via secure chat or staff messaging in [employer] assistant. OPAT Modified program for IV antimicrobial therapy [...] Note Bev Borja 64 y.o. male CSN: [id number] Admission: 11/05/2024 9:45 PM Primary Problem: Wound infection Kennel Supervisor reviewed chart and spoke with patient to complete this Initial Case Management Assessment. PCP: Asad Victor MD (Inactive) Dr. Palomo in [facility] Emergency Contact: Extended Emergency Contact Information Primary Emergency Contact: Patti Hill Relation: Sister Fiscal Agent needed? No Insurance: Primary Visit Coverage Payer Plan Sponsor Code Group Number Group Name [facility] MEDICARE [facility] MEDICARE REPLACEMENT [id number] Primary Visit Coverage Subscriber Subscriber ID Subscriber Name Subscriber [facility] Subscriber Address [id number] BEV BORJA [id number] [place] [address] Secondary Visit Coverage Payer Plan Sponsor Code Group Number Group Name [facility] MED[facility] Secondary Visit Coverage Subscriber Subscriber ID Subscriber Name Subscriber [facility] Subscriber Address [id number] BEV BORJA [id number] [place] [address] Patient information: Primary Caregiver: Self Support System: Immediate family Daily Living Activities: Functional Status: Independent Living Arrangements: Alone Type of Residence: Private residence, Single Level [address] [place] [address] Current DME: Equipment Currently Used at Home: joy monterroso Income Information: Income Source: Disabled Income/Expense Information: Income meets expenses Current Resources Utilized: Food [place] Housing Circumstances-Z Codes: Housing Circumstances (select all [...] Dialysis Services: None Living Will/Advance Directive/Power of Director /Guardian: Have you reviewed your Advance Directive and is it valid for this stay?: No Advance Directive: Not applicable Information Provided on Healthcare Directives: No Pre-existing DNR/DNI Order: No Patient Requests Assistance: No Additional Comments: Patient is not medically ready for discharge. Patient uses [facility] for transportation and will need assistance with discharge transport. SW will continue to follow. 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[facility]) COPD (chronic obstructive pulmonary disease) ([facility]) Overview Signed 10/18/2021 7:30 PM by Gallo Gallardo MD Not on home inhalers A-fib ([facility]) Overview Addendum 10/19/2021 10:39 AM by Giovanna Junior APRN Hold anticoagulation Metoprolol restarted BPH (benign prostatic hyperplasia) Overview Addendum 10/19/2021 10:41 AM by Giovanna Junior APRN Flomax restarted Subarachnoid hemorrhage ([facility]) Overview Addendum 10/20/2021 8:23 AM by Giovanna Junior APRN Left frontal, right occipital NSGY consulted - Repeat CTH showing slight worsening of tSAH - no need for further imaging, will continue to follow clinically 10/20: spoke with NSGY via phone and stated to hold ASA and Xarelto for 2 weeks Closed compression fracture of L3 lumbar vertebra, initial encounter ([facility]) Overview Signed 10/18/2021 7:35 PM by Gallo [...] 09/21/24, CLI s/p left femoral endarterectomy with EIA/DOG OR HORSE RACING OFFICIAL stenting 10/17/24, [facility] nursing staff. I have notified senior resident/attending content engineer with any issues or concerns. Melecio [...] Disposition: admit to inpatient unit Cosigned by Marbyel Carlos MD at 11/06/2024 12:56 PM EDT Associated attestation - Marybel Carlos MD - 11/06/2024 12:56 PM EDT Agree with above assessment and evaluation from resident/CLUB ROOM ATTENDANT. * Consults - Oscar Appiah MD - [...] 1960 Age: 64 y.o. 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 Lead integrity [...] Procedure Component Value Units Date/Time Anaerobic Culture [[id number]] Collected: 11/06/241127 Order Status: Sent Specimen: Swab from Other (specify site) Updated: 11/06/24 122 Fungal Culture, Routine [[id number]] Collected: 11/06/241127 Order Status: Sent Specimen: Swab from Other (specify site) Updated: 11/06/24 1220 Routine Culture and Gram Stain [[id number]] Collected: 11/06/241127 Order Status: Sent Specimen: Swab from Other (specify site) Updated: 11/06/24 1220 Abscess Culture and Gram Stain [[id number]] Collected: 11/06/241127 Order Status: Canceled Specimen: Swab from Other (specify site) Updated: 11/06/24 1220 Anaerobic Culture [[id number]] Collected: 11/06/241128 Order Status: Sent Specimen: Swab from Other (specify site) Updated: 11/06/24 1219 Fungal Culture, Routine [[id number]] Collected: 11/06/241128 Order Status: Sent Specimen: Swab from Other (specify site) Updated: 11/06/241218 Routine Culture and Gram Stain [[id number]] Collected: 11/06/241128 Order Status: Sent Specimen: Swab from Other (specify site) Updated: 11/06/241218 Abscess Culture and Gram Stain [[id number]] Collected: 11/06/241128 Order Status: Canceled Specimen: Swab from Other (specify site) Updated: 11/06/241218 Anaerobic Culture [[id number]] Collected: 11/06/241133 Order Status: Sent Specimen: Tissue from Other (specify site) Updated: 11/06/241217 Tissue Culture and Gram Stain [[id number]] Collected: 11/06/241133 Order Status: Sent Specimen: Tissue from Other (specify site) Updated: 11/06/241217 AFB Culture, Non Respiratory Source and Acid Fast Stain [[id number]] Collected: 11/06/241133 Order Status: Sent Specimen: Tissue from Other (specify site) Updated: 11/06/241217 Fungal Culture, Tissue and ISIDRO [[id number]] Collected: 11/06/241133 Order Status: Sent Specimen: Tissue from Other (specify site) Updated: 11/06/241217 Blood Culture (Aerobic/Anaerobet Set) [[id number]] Collected: 11/06/24106 Order Status: Completed Specimen: Blood from AC, Left Updated: 11/06/24402 Culture Culture in lab Blood Culture (Aerobic/Anaerobet Set) [[id number]] Collected: 11/06/24106 Order Status: Completed Specimen: Blood [...] On 11/06, pt went to the [facility] vascular surgery for left groin exploration [...] the time spent on the encounter was [id number]-[id number] providing direct patient care, counseling for the patient/caregiver, and care coordination. [1] Past Medical History: Diagnosis Date Arthritis Old myocardial infarction History of myocardial infarction [2] Past Surgical History: Procedure Laterality Date ANKLE SURGERY Right CARDIAC PACEMAKER PLACEMENT CAROTID ENDARTERECTOMY N/A 2017 Endarterectomy Carotid Artery from Physician Practice [employer] CORONARY ANGIOPLASTY Left Coronary Angiography With Concomitant Left Heart Catheterization from Physician Practice [employer] CORONARY ARTERY BYPASS GRAFT N/A 2018 3V ELBOW SURGERY Right ENDARTERECTOMY Left 10/17/2024 common/SFA/Profunda thromboendarterectomy, EIA/DOG OR HORSE RACING OFFICIAL stent HERNIA REPAIR KNEE ARTHROSCOPY Left VASCULAR SURGERY Left 09/21/2024 DOG OR HORSE RACING OFFICIAL pseudoaneurym injection [3] Family History Problem Relation [...] Note Bev Borja 64 y.o. male CSN: [id number] Admission: 11/05/2024 9:45 PM Primary Problem: Wound infection Patient in OR today. SW will continue to follow. Mariia Maya Remington LABORATORY IMMUNOLOGIST * Op Note - Jerry Holcomb MD - 11/06/2024 11:23 AM EDT Operative Note Date: 11/06/24 Location: [facility] OR Name: Bev Borja, : 1960, Diagnoses: Pre-op Diagnosis Surgical wound infection Post-op Diagnosis Surgical wound infection Procedure(s): Excisional debridement left groin (skin, subcutaneous tissue. Final measurements 10 x 7 x 6.5 cm) Excisional debridement left thigh (skin, subcutaneous tissue. Final measurements 8 x 2 x 3 cm) Attending Surgeon(s): * Nathaly Nowak - Primary Windmill Mechanic(s): * Luna Beckett MD - Resident - [...] HLD, HTN, RLS who presented to the [facility] on 11/05/2024 with problems with his [...] restarted once verified. Plan: - Admit to [facility] 2 - NPO, mIVF - Vanc/Zosyn, Blood Cx - Repeat labs and obtain A1C - Possible intervention to wash out wounds pending further review - Restarted PM medications, will need to restart AM meds (AC) when verified Dispo: Admit to [facility] Team 2 CODE STATUS: full code This Consult, Assessment, and Plan has been discussed with Dr. Nowak, Attending Physician Anthony Reyes MD [1] Past Medical History: Diagnosis Date Arthritis Old myocardial infarction History of myocardial infarction [2] No Known Allergies [3] Past Surgical History: Procedure Laterality Date ANKLE SURGERY Right CARDIAC PACEMAKER PLACEMENT CAROTID ENDARTERECTOMY N/A 2017 Endarterectomy Carotid Artery from Physician Practice [employer] CORONARY ANGIOPLASTY Left Coronary Angiography With Concomitant Left Heart Catheterization from Physician Practice [employer] CORONARY ARTERY BYPASS GRAFT N/A 2018 3V ELBOW SURGERY Right ENDARTERECTOMY Left 10/17/2024 common/SFA/Profunda thromboendarterectomy, EIA/DOG OR HORSE RACING OFFICIAL stent HERNIA REPAIR KNEE ARTHROSCOPY Left VASCULAR SURGERY Left 09/21/2024 DOG OR HORSE RACING OFFICIAL pseudoaneurym injection [4] Family History Problem Relation [...] 250 mL Intravenous q15 min PRN Anthony Reyse MD Or glucagon (human recombinant) injection 1 [...] Continuous Pulse Oximetry Until discontinued Acknowledged ANTHONY RYEES 11/06/24 003 CBC Once Final result ANTHONY [...] to inpatient Once Acknowledged ANTHONY REYES 11/05/24 0058 Consult to Vascular Surgery - Surg Red Once Specialty: Vascular Surgery Provider: (Not yet assigned) Completed [facility]LEX[facility] ED Course as of 11/06/24612Nov 05, 2024 2311 On initial evaluation, patient is hemodynamically stable. Patient has history of traumatic left lower extremity DOG OR HORSE RACING OFFICIAL pseudoaneurysm s/p repair on 10/17 with Vascular [...] None Disposition Admit Admitting/Attending Physician: NATHALY NOWAK [[id number]] Provider Care Team: [facility]ASCULAR [facility]GERY 2 [168] Are they the primary team?: Yes [1] - [1] Past Medical History: Diagnosis Date Arthritis Old myocardial infarction History of myocardial infarction [2] Past Surgical History: Procedure Laterality Date ANKLE SURGERY Right CARDIAC PACEMAKER PLACEMENT CAROTID ENDARTERECTOMY N/A 2016 Endarterectomy Carotid Artery from Physician Practice [employer] CORONARY ANGIOPLASTY Left Coronary Angiography With Concomitant Left Heart Catheterization from Physician Practice [employer] CORONARY ARTERY BYPASS GRAFT N/A 2018 3V ELBOW SURGERY Right ENDARTERECTOMY Left 10/17/2024 common/SFA/Profunda thromboendarterectomy, EIA/DOG OR HORSE RACING OFFICIAL stent HERNIA REPAIR KNEE ARTHROSCOPY Left VASCULAR SURGERY Left 09/21/2024 DOG OR HORSE RACING OFFICIAL pseudoaneurym injection [3] Family History Problem Relation [...] Description 11/29/2024 2:30 PM EDT Office Visit [facility] [address] [place] [id number] Oscar Appiah MD [address] [facility] [address] [place] [address] Pending Results Name Type Priority [...] until 05/18/2026 Discharge Ambulatory referral to NON [facility] Outpatient Referral Routine Pseudoaneurysm of left [...] Comment 11/14/2024 11:57 AM EDT HEALTHCARE LAB Forming Machine Upkeep Mechanic Helper ID ShethEstefani 11/14/2024 11:57 AM EDT [facility] Device ID [id number] 11/14/2024 11:57 AM EDT [facility] Specimen Type POC Capillary 11/14/2024 11:57 AM EDT [facility] Blood Capillary blood specimen / Unknown 11/14/2024 11:56 AM EDT 11/14/2024 11:57 AM EDT Nathaly Nowak MD LAB POINT OF CARE TE ST DOCKED DEVICE UNSOLICITED RESULTS Final Result Performing Organization Address City/State/[facility] Co de Phone Number [facility] [address] [place] [address] * (ABNORMAL) POCT glucose meter (11/14/2024 8:05 [...] Comment 11/14/2024 8:06 AM EDT HEALTHCARE LAB Forming Machine Upkeep Mechanic Helper ID Estefani Sheth 11/14/2024 8:06 AM EDT HEALTHCARE LAB Device ID [id number] 11/14/2024 8:06 AM EDT HEALTHCARE LAB Specimen Type POC Capillary 11/14/2024 8:06 AM EDT HEALTHCARE LAB Blood Capillary blood specimen / Unknown 11/14/2024 8:05 AM EDT 11/14/2024 8:06 AM EDT Nathaly Nowak MD LAB POINT OF CARE TE ST DOCKED DEVICE UNSOLICITED RESULTS Final Result Performing Organization Address City/[facility]/ZIP Co de Phone Number [facility] [address] [place] [address] * (ABNORMAL) POCT glucose meter (11/14/2024 3:53 [...] 11/14/2024 3:55 AM EDT [facility] Forming Machine Upkeep Mechanic Helper ID Nelda Gerber 11/15/19 3:55 AM EDT HEALTHCARE LAB Device ID [id number] 11/14/2024 3:55 AM EDT HEALTHCARE LAB Specimen Type POC Capillary 11/14/2024 3:55 AM EDT HEALTHCARE LAB Blood Capillary blood specimen / Unknown 11/14/2024 3:53 AM EDT 11/14/2024 3:55 AM EDT Nathaly Nowak MD LAB POINT OF CARE TE ST DOCKED DEVICE UNSOLICITED RESULTS Final Result Performing Organization Address City/[facility]/ZIP Co de Phone Number [facility] [address] [place] [address] * (ABNORMAL) POCT glucose meter (11/13/2024 8:55 PM EDT) Pathologist [facility] POCT Glucose 251(H) 74 - 99 mg/dL [...] Comment 11/13/2024 9:01 PM EDT HEALTHCARE LAB Forming Machine Upkeep Mechanic Helper ID Nelda Gerber 11/14/19 9:01 PM EDT HEALTHCARE LAB Device ID [id number] 11/13/2024 9:01 PM EDT HEALTHCARE LAB Specimen Type POC Capillary 11/13/2024 9:01 PM EDT [facility] Blood Capillary blood specimen / Unknown 11/13/2024 8:55 PM EDT 11/13/2024 9:01 PM EDT Nathaly Nowak MD LAB POINT OF CARE TE ST DOCKED DEVICE UNSOLICITED RESULTS Final Result [facility] [address] [place] [address] * (ABNORMAL) POCT glucose meter (11/13/2024 5:16 [...] Comment 11/13/2024 5:17 PM EDT HEALTHCARE LAB Forming Machine Upkeep Mechanic Helper ID Estefani Sheth 11/13/2024 5:17 PM EDT HEALTHCARE LAB Device ID [id number] 11/13/2024 5:17 PM EDT HEALTHCARE LAB Specimen Type POC Capillary 11/13/2024 5:17 PM EDT HEALTHCARE LAB Blood Capillary blood specimen / Unknown 11/13/2024 5:16 PM EDT 11/13/2024 5:17 PM EDT us Nathaly Nowak MD LAB POINT OF CARE TE ST DOCKED DEVICE UNSOLICITED RESULTS Final Result [facility] [address] [place] [address] * CT NEGATIVE PRESSURE WOUND THERAPY DME [...] 11/13/2024 12:00 PM EDT [facility] Forming Machine Upkeep Mechanic Helper ID Estefani Sheth 11/13/2024 12:00 PM EDT [facility] Device ID [id number] 11/13/2024 12:00 PM EDT HEALTHCARE LAB Specimen Type POC Capillary 11/13/2024 12:00 PM EDT HEALTHCARE LAB Blood Capillary blood specimen / Unknown 11/13/2024 11:58 AM EDT 11/13/2024 12:00 PM EDT Nathaly Nowak MD LAB POINT OF CARE TE ST DOCKED DEVICE UNSOLICITED RESULTS Final Result Performing Organization Address City/[facility] Co de Phone Number HEALTHCARE LAB [address] [place] [address] * (ABNORMAL) POCT glucose meter (11/13/2024 8:23 [...] for testing. Comment 11/13/2024 8:24 AM EDT [facility] Forming Machine Upkeep Mechanic Helper ID Estefani Sheth 11/13/2024 8:24 AM EDT HEALTHCARE LAB Device ID [id number] 11/13/2024 8:24 AM EDT [facility] Specimen Type POC Capillary 11/13/2024 8:24 AM EDT [facility] Blood Capillary blood specimen / Unknown 11/13/2024 8:23 AM EDT 11/13/2024 8:24 AM EDT Nathaly Nowak MD LAB POINT OF CARE TE ST DOCKED DEVICE UNSOLICITED RESULTS Final Result Performing Organization Address City/[facility]/ZIP Co de Phone Number [facility]ALTH[facility]ARE [facility] [address] [place] [address] * (ABNORMAL) Phosphorus, Plasma (11/13/2024 6:37 AM EDT) Phosphorus, Plasma 1.7(L) 2.5 - 4.5 mg/dL 11/13/2024 7:16 AM EDT [facility] Blood Venous blood specimen / Unknown Venipuncture / Unknown 11/13/2024 6:37 AM EDT 11/13/2024 6:44 AM EDT us Nathaly Nowak MD LAB BLOOD ORDERABLES Final Resu lt [facility] [address] [place] [address] * Magnesium, Plasma (11/13/2024 6:37 AM EDT) Magnesium, Plasma 2.0 1.9 - 2.4 mg/dL 11/13/2024 7:16 AM EDT [facility] Blood Venous blood specimen / Unknown Venipuncture / Unknown 11/13/2024 6:37 AM EDT 11/13/2024 6:44 AM EDT us Nathaly Nowak MD LAB BLOOD ORDERABLES Final Resu lt Performing Organization Address City/[facility]/ZIP Co de Phone Number [facility] [address] [place] [id number] * (ABNORMAL) CBC W/O Differential (11/13/2024 6:37 [...] lt [facility] [address] [place] [id number] * (ABNORMAL) Basic Metabolic Panel, Plasma (11/13/2024 [...] lt [facility] [address] [place] [address] * (ABNORMAL) POCT glucose meter (11/12/2024 8:27 PM EDT) [facility] POCT Glucose 175(H) 74 - [...] Comment 11/12/2024 8:29 PM EDT HEALTHCARE LAB Forming Machine Upkeep Mechanic Helper ID Nelda Gerber 11/13/19 8:29 PM EDT HEALTHCARE LAB Device ID [id number] 11/12/2024 8:29 PM EDT HEALTHCARE LAB Specimen Type POC Capillary 11/12/2024 8:29 PM EDT HEALTHCARE LAB Blood Capillary blood specimen / Unknown 11/12/2024 8:27 PM EDT 11/12/2024 8:29 PM EDT Nathaly Nowak MD LAB POINT OF CARE TE ST DOCKED DEVICE UNSOLICITED RESULTS Final Result Performing Organization Address City/[facility]/ZIP Co de Phone Number [facility]ARE [facility] [address] [place] [address] * (ABNORMAL) POCT glucose meter (11/12/2024 5:08 [...] for testing. Comment 11/12/2024 5:10 PM EDT [facility] Forming Machine Upkeep Mechanic Helper ID Wade Feliciano 5:10 PM EDT HEALTHCARE LAB Device ID [id number] 11/12/2024 5:10 PM EDT [facility] Specimen Type POC Capillary 11/12/2024 5:10 PM EDT [facility] Blood Capillary blood specimen / Unknown 11/12/2024 5:08 PM EDT 11/12/2024 5:10 PM EDT Nathaly Nowak MD LAB POINT OF CARE TE ST DOCKED DEVICE UNSOLICITED RESULTS Final Result Performing Organization Address City/[facility]/ZIP Co de Phone Number [facility] [address] [place] [address] * (ABNORMAL) POCT glucose meter (11/12/2024 12:36 [...] Comment 11/12/2024 12:38 PM EDT HEALTHCARE LAB Forming Machine Upkeep Mechanic Helper ID Wade Feliciano 12:38 PM EDT HEALTHCARE LAB Device ID [id number] 11/12/2024 12:38 PM EDT HEALTHCARE LAB Specimen Type POC Capillary 11/12/2024 12:38 PM EDT HEALTHCARE LAB Blood Capillary blood specimen / Unknown 11/12/2024 12:36 PM EDT 11/12/2024 12:38 PM EDT us Nathaly Nowak MD LAB POINT OF CARE TE ST DOCKED DEVICE UNSOLICITED RESULTS Final Result Performing Organization Address [facility] Co de Phone Number [facility] [address] [place] [address] * Clostridiodes (Clostridium) difficile PCR (11/12/2024 9:50 [...] ORDE LAM Final Result Performing Organization Address City/[facility]/ZIP Co de Phone Number [facility] [address] [place] [address] * Comprehensive GI Panel by PCR (11/12/2024 [...] Nowak MD LAB MICROBIOLOGY - GENERAL [facility] Final Result [facility] [address] [place] [address] * C-reactive protein (11/12/2024 9:48 AM EDT) [...] Address City/[facility]/ZIP Co de Phone Number [facility] [address] [place] [address] * (ABNORMAL) POCT glucose meter (11/12/2024 8:20 [...] for testing. Comment 11/12/2024 8:21 AM EDT [facility] Forming Machine Upkeep Mechanic Helper ID BradenWade 8:21 AM EDT [facility] Device ID [id number] 11/12/2024 8:21 AM EDT [facility] Specimen Type POC Capillary 11/12/2024 8:21 AM EDT [facility] Blood Capillary blood specimen / Unknown 11/12/2024 8:20 AM EDT 11/12/2024 8:21 AM EDT Nathaly Nowak MD LAB POINT OF CARE TE ST DOCKED DEVICE UNSOLICITED RESULTS Final Result Performing Organization Address City/[facility]/ZIP Co de Phone Number [facility] [address] [place] [address] * (ABNORMAL) POCT glucose meter (11/11/2024 8:18 [...] Comment 11/11/2024 8:20 PM EDT [facility] Forming Machine Upkeep Mechanic Helper ID Nelda Gerber 11/12/19 8:20 PM EDT [facility] Device ID [id number] 11/11/2024 8:20 PM EDT [facility]ARE LAB Specimen Type POC Capillary 11/11/2024 8:20 PM EDT [facility] Blood Capillary blood specimen / Unknown 11/11/2024 8:18 PM EDT 11/11/2024 8:20 PM EDT Nathaly Nowak MD LAB POINT OF CARE TE ST DOCKED DEVICE UNSOLICITED RESULTS Final Result Performing Organization Address City/[facility]/ZIP Co de Phone Number [facility] [address] [place] [address] * (ABNORMAL) POCT glucose meter (11/11/2024 5:59 [...] Comment 11/11/2024 6:01 PM EDT [facility] Forming Machine Upkeep Mechanic Helper ID Wade Feliciano 6:01 PM EDT [facility]ARE LAB Device ID [id number] 11/11/2024 6:01 PM EDT [facility]ARE LAB Specimen Type POC Capillary 11/11/2024 6:01 PM EDT [facility] Blood Capillary blood specimen / Unknown 11/11/2024 5:59 PM EDT 11/11/2024 6:01 PM EDT us Nathaly Nowak MD LAB POINT OF CARE TE ST DOCKED DEVICE UNSOLICITED RESULTS Final Result [facility] [address] [place] [address] * POCT glucose meter (11/11/2024 5:20 PM [...] 11/11/2024 5:22 PM EDT [facility] Forming Machine Upkeep Mechanic Helper ID Wade Feliciano Tobias 5:22 PM EDT [facility]CARE LAB Device ID [id number] 11/11/2024 5:22 PM EDT [facility]ARE LAB Specimen Type POC Capillary 11/11/2024 5:22 PM EDT [facility] Blood Capillary blood specimen / Unknown 11/11/2024 5:20 PM EDT 11/11/2024 5:22 PM EDT us Nathaly Nowak MD LAB POINT OF CARE TE ST DOCKED DEVICE UNSOLICITED RESULTS Final Result [facility] [address] [place] [address] * CT NEGATIVE PRESSURE WOUND THERAPY DME [...] - 99 mg/dL 11/11/2024 12:10 PM EDT [facility] Comment:Accuracy of a glucos e result [...] for testing. Comment 11/11/2024 12:10 PM EDT [facility] Forming Machine Upkeep Mechanic Helper ID Wade Feliciano 12:10 PM EDT [facility] Device ID [id number] 11/11/2024 12:10 PM EDT [facility] Specimen Type POC Capillary 11/11/2024 12:10 PM EDT [facility] Blood Capillary blood specimen / Unknown 11/11/2024 12:08 PM EDT 11/11/2024 12:10 PM EDT Nathaly Nowak MD LAB POINT OF CARE TE ST DOCKED DEVICE UNSOLICITED RESULTS Final Result Performing Organization Address City/State/[facility] Co de Phone Number [facility] [address] [place] [address] * (ABNORMAL) POCT glucose meter (11/11/2024 9:08 AM EDT) POCT Glucose 162(H) 74 - 99 mg/dL 11/11/2024 9:09 AM EDT [facility] Comment:Accuracy of a glucos e result [...] 11/11/2024 9:09 AM EDT [facility] Forming Machine Upkeep Mechanic Helper ID Wade Feliciano 9:09 AM EDT HEALTHCARE LAB Device ID [id number] 11/11/2024 9:09 AM EDT [facility]ARE LAB Specimen Type POC Capillary 11/11/2024 9:09 AM EDT [facility] LAB Blood Capillary blood specimen / Unknown 11/11/2024 9:08 AM EDT 11/11/2024 9:09 AM EDT Nathaly Nowak MD LAB POINT OF CARE TE ST DOCKED DEVICE UNSOLICITED RESULTS Final Result Performing Organization Address City/[facility] Co de Phone Number [facility] [address] [place] [address] * POCT glucose meter (11/11/2024 8:27 AM [...] Comment 11/11/2024 8:28 AM EDT [facility] Forming Machine Upkeep Mechanic Helper ID Wade Feliciano Tobias 8:28 AM EDT HE[facility]ARE LAB Device ID [id number] 11/11/2024 8:28 AM EDT [facility] LAB Specimen Type POC Capillary 11/11/2024 8:28 AM EDT [facility] Blood Capillary blood specimen / Unknown 11/11/2024 8:27 AM EDT 11/11/2024 8:28 AM EDT Nathaly Nowak MD LAB POINT OF CARE TE ST DOCKED DEVICE UNSOLICITED RESULTS Final Result Performing Organization Address City/[facility]/ZIP Co de Phone Number [facility] [address] [place] [address] * (ABNORMAL) Basic Metabolic Panel, Plasma (11/11/2024 [...] [facility] [address] [place] [address] * (ABNORMAL) CBC W/O Differential (11/11/2024 12:56 [...] [facility] [address] [place] [address] * (ABNORMAL) POCT glucose meter (11/10/2024 8:25 [...] 11/10/2024 8:28 PM EDT [facility] Forming Machine Upkeep Mechanic Helper ID Nelda Gerber 11/11/19 8:28 PM EDT [facility] Device ID [id number] 11/10/2024 8:28 PM EDT [facility]ARE LAB Specimen Type POC Capillary 11/10/2024 8:28 PM EDT [facility] Blood Capillary blood specimen / Unknown 11/10/2024 8:25 PM EDT 11/10/2024 8:28 PM EDT Nathaly Nowak MD LAB POINT OF CARE TE ST DOCKED DEVICE UNSOLICITED RESULTS Final Result [facility] [address] [place] [address] * (ABNORMAL) POCT glucose meter (11/10/2024 4:45 PM EDT) [facility] POCT Glucose 155(H) 74 - [...] 11/10/2024 4:47 PM EDT [facility] Forming Machine Upkeep Mechanic Helper ID Esperanza Parks 11/10/2024 4:47 PM EDT HEALTHCARE LAB Device ID [id number] 11/10/2024 4:47 PM EDT [facility] LAB Specimen Type POC Capillary 11/10/2024 4:47 PM EDT [facility] Blood Capillary blood specimen / Unknown 11/10/2024 4:45 PM EDT 11/10/2024 4:47 PM EDT Nathaly Nowak MD LAB POINT OF CARE TE ST DOCKED DEVICE UNSOLICITED RESULTS Final Result Performing Organization Address [facility] Co de Phone Number [facility] [address] [place] [address] * (ABNORMAL) POCT glucose meter (11/10/2024 12:13 [...] Comment 11/10/2024 12:14 PM EDT [facility] Forming Machine Upkeep Mechanic Helper ID Esperanza Parks 11/10/2024 12:14 PM EDT HEALTHCARE LAB Device ID [id number] 11/10/2024 12:14 PM EDT [facility] Specimen Type POC Capillary 11/10/2024 12:14 PM EDT [facility] Blood Capillary blood specimen / Unknown 11/10/2024 12:13 PM EDT 11/10/2024 12:14 PM EDT us Nathaly Nowak MD LAB POINT OF CARE TE ST DOCKED DEVICE UNSOLICITED RESULTS Final Result Performing Organization Address City/[facility] Co de Phone Number [facility] [address] [place] [address] * Vancomycin, Peak, Plasma Please draw ~2 [...] ORDERABLES Final Res ult Performing Organization Address City/[facility]/ZIP Co de Phone Number [facility] [address] [place] [address] * (ABNORMAL) POCT glucose meter (11/10/2024 8:03 [...] Comment 11/10/2024 8:04 AM EDT [facility]ALTH[facility]ARE [facility] Forming Machine Upkeep Mechanic Helper ID Esperanza Parks 11/10/2024 8:04 AM EDT HEALTHCARE LAB Device ID [id number] 11/10/2024 8:04 AM EDT HEALTH[facility]ARE LAB Specimen Type POC Capillary 11/10/2024 8:04 AM EDT [facility] Blood Capillary blood specimen / Unknown 11/10/2024 8:03 AM EDT 11/10/2024 8:04 AM EDT us Nathaly Nowak MD LAB POINT OF CARE TE ST DOCKED DEVICE UNSOLICITED RESULTS Final Result Performing Organization Address City/[facility]/ZIP Co de Phone Number [facility] [address] [place] [address] * Vancomycin, Trough, Plasma Please draw ~30 minutes prior to dose due at 0800 on 11/10. Please do NOThold dose awaiting level to return. Consider obtaining level via peripheral stick. If peripheral stick is not feasible, please ensure that line is... (11/10/2024 7:27 AM EDT) Pathologist [facility] [place] Vancomycin, Trough, Plasma 16.2 10.0 - 20.0 ug/mL 11/10/2024 8:24 AM EDT [facility] Blood Venous blood specimen / Unknown Venipuncture / Unknown 11/10/2024 7:27 AM EDT 11/10/2024 7:51 AM EDT Narrative [facility] - 11/10/2024 8:24 AM EDT Therapeutic Trough level: 10-20ug/mL Supra-therapeutic Trough level: >20 ug/mL us Abigail Seay MD LAB BLOOD ORDERABLES Final Res ult [facility] [address] [place] [address] * (ABNORMAL) CBC and Differential (11/10/2024 12:31 AM EDT) Pathologist [facility] [place] WBC Count 10.80(H) 3.70 - 10.30 10*3/uL [...] lt [facility] [address] [place] [address] * (ABNORMAL) Comprehensive Metabolic Panel, Plasma (11/10/2024 [...] lt [facility] [address] [place] [address] * (ABNORMAL) POCT glucose meter (11/09/2024 8:04 [...] 11/09/2024 8:06 PM EDT [facility] Forming Machine Upkeep Mechanic Helper ID Maximiliano Hansen II 11/09/2024 8:06 PM EDT [facility] Device ID [id number] 11/09/2024 8:06 PM EDT [facility]ARE LAB Specimen Type POC Capillary 11/09/2024 8:06 PM EDT [facility] Blood Capillary blood specimen / Unknown 11/09/2024 8:04 PM EDT 11/09/2024 8:06 PM EDT Nathaly Nowak MD LAB POINT OF CARE TE ST DOCKED DEVICE UNSOLICITED RESULTS Final Result Performing Organization Address City/[facility] Co de Phone Number [facility] [address] [place] [address] * (ABNORMAL) POCT glucose meter (11/09/2024 4:36 [...] Comment 11/09/2024 4:38 PM EDT [facility] Forming Machine Upkeep Mechanic Helper ID Kristian Sosa 11/09/2024 4:38 PM EDT HEALTH[facility]ARE LAB Device ID [id number] 11/09/2024 4:38 PM EDT [facility]ARE LAB Specimen Type POC Capillary 11/09/2024 4:38 PM EDT [facility] Blood Capillary blood specimen / Unknown 11/09/2024 4:36 PM EDT 11/09/2024 4:38 PM EDT us Nathaly Nowak MD LAB POINT OF CARE TE ST DOCKED DEVICE UNSOLICITED RESULTS Final Result Performing Organization Address City/[facility] Co de Phone Number [facility] [address] [place] [address] * PICC SINGLE LUMEN (SM[employer] LINK) (11/09/2024 1:11 PM EDT) Narrative Estefani Barraza RN - 11/09/2024 1:11 PM EDT Estefani Barraza RN 11/09/2024 1:12 PM Insert PICC line Date/Time: 11/09/2024 1:11 PM Performed by: Estefani Barraza RN Authorized by: Nathaly Nowak MD [place] Protocol: Verbal consent obtained?: Yes Written consent [...] selection rationale: Left pacemaker Catheter Lot #: [id number] Catheter casual shoe inspector: Halalati Catheter placed: Single lumen Catheter size: 4 [...] - 99 mg/dL 11/09/2024 11:51 AM EDT [facility] Comment:Accuracy of a glucos e result [...] Comment 11/09/2024 11:51 AM EDT [facility] Forming Machine Upkeep Mechanic Helper ID Kristian Sosa 11/09/2024 11:51 AM EDT [facility]ARE LAB Device ID [id number] 11/09/2024 11:51 AM EDT [facility]ARE LAB Specimen Type POC Capillary 11/09/2024 11:51 AM EDT [facility] Blood Capillary blood specimen / Unknown 11/09/2024 11:50 AM EDT 11/09/2024 11:51 AM EDT Nathaly Nowak MD LAB POINT OF CARE TE ST DOCKED DEVICE UNSOLICITED RESULTS Final Result [facility] [address] [place] [address] * (ABNORMAL) POCT glucose meter (11/09/2024 8:14 AM EDT) [facility] Signature POCT Glucose 153(H) 74 - 99 [...] Comment 11/09/2024 8:15 AM EDT [facility] Forming Machine Upkeep Mechanic Helper ID Kristian Sosa 11/09/2024 8:15 AM EDT [facility] LAB Device ID [id number] 11/09/2024 8:15 AM EDT [facility]ARE LAB Specimen Type POC Capillary 11/09/2024 8:15 AM EDT [facility] Blood Capillary blood specimen / Unknown 11/09/2024 8:14 AM EDT 11/09/2024 8:15 AM EDT Nathaly Nowak MD LAB POINT OF CARE TE ST DOCKED DEVICE UNSOLICITED RESULTS Final Result [facility] [address] [place] [address] * (ABNORMAL) CBC and Differential (11/09/2024 4:15 [...] AM EDT 11/09/2024 4:18 AM EDT [facility] - 11/09/2024 4:26 AM EDT Therapeutic decision making should be based on absolute values, rather than percentages. us Nathaly Nowak MD LAB BLOOD ORDERABLES Final Resu lt [facility] [address] [place] [address] * (ABNORMAL) Comprehensive Metabolic Panel, Plasma (11/09/2024 4:15 AM EDT) [facility] Glucose, Plasma 171(H) 74 - [...] Final Resu lt Performing Organization Address City/[facility] Co de Phone Number [facility] [address] [place] [address] * (ABNORMAL) POCT glucose meter (11/09/2024 3:30 AM EDT) POCT Glucose 160(H) 74 - 99 mg/dL 11/09/2024 3:31 AM EDT [facility] Comment:Accuracy of a glucos e result [...] Comment 11/09/2024 3:31 AM EDT [facility] Forming Machine Upkeep Mechanic Helper ID Maximiliano Hansen II 11/09/2024 3:31 AM EDT [facility]ARE LAB Device ID [id number] 11/09/2024 3:31 AM EDT [facility] LAB Specimen Type POC Capillary 11/09/2024 3:31 AM EDT [facility] Blood Capillary blood specimen / Unknown 11/09/2024 3:30 AM EDT 11/09/2024 3:31 AM EDT us Nathaly Nowak MD LAB POINT OF CARE TE ST DOCKED DEVICE UNSOLICITED RESULTS Final Result Performing Organization Address City/[facility]/ZIP Co de Phone Number [facility] [address] [place] [address] * (ABNORMAL) POCT glucose meter (11/08/2024 7:21 [...] Comment 11/08/2024 7:22 PM EDT [facility] Forming Machine Upkeep Mechanic Helper ID Maximiliano Hansen II 11/08/2024 7:22 PM EDT [facility]ARE LAB Device ID [id number] 11/08/2024 7:22 PM EDT [facility] LAB Specimen Type POC Capillary 11/08/2024 7:22 PM EDT [facility] Blood Capillary blood specimen / Unknown 11/08/2024 7:21 PM EDT 11/08/2024 7:22 PM EDT Nathaly Nowak MD LAB POINT OF CARE TE ST DOCKED DEVICE UNSOLICITED RESULTS Final Result Performing Organization Address City/State/[facility] Co de Phone Number [facility] [address] [place] [address] * (ABNORMAL) POCT glucose meter (11/08/2024 5:12 [...] 11/08/2024 5:14 PM EDT [facility] Forming Machine Upkeep Mechanic Helper ID Estefani Sheth 11/08/2024 5:14 PM EDT [facility] Device ID [id number] 11/08/2024 5:14 PM EDT [facility] Specimen Type POC Capillary 11/08/2024 5:14 PM EDT [facility] Blood Capillary blood specimen / Unknown 11/08/2024 5:12 PM EDT 11/08/2024 5:14 PM EDT Nathaly Nowak MD LAB POINT OF CARE TE ST DOCKED DEVICE UNSOLICITED RESULTS Final Result Performing Organization Address [facility] de Phone Number [facility] [address] [place] [address] * (ABNORMAL) POCT glucose meter (11/08/2024 12:03 [...] Comment 11/08/2024 12:05 PM EDT [facility] Forming Machine Upkeep Mechanic Helper ID Estefani Sheth 11/08/2024 12:05 PM EDT HE[facility] LAB Device ID [id number] 11/08/2024 12:05 PM EDT [facility]ARE LAB Specimen Type POC Capillary 11/08/2024 12:05 PM EDT [facility] Blood Capillary blood specimen / Unknown 11/08/2024 12:03 PM EDT 11/08/2024 12:05 PM EDT Nathaly Nowak MD LAB POINT OF CARE TE ST DOCKED DEVICE UNSOLICITED RESULTS Final Result Performing Organization Address City/[facility] de Phone Number [facility] [address] [place] [address] * Vancomycin, Peak, Plasma Please draw ~2 [...] Address City/[facility]/ZIP Co de Phone Number [facility] [address] [place] [address] * (ABNORMAL) POCT glucose meter (11/08/2024 8:00 [...] Comment 11/08/2024 8:01 AM EDT [facility]ALTH[facility] Forming Machine Upkeep Mechanic Helper ID Estefani Sheth 11/08/2024 8:01 AM EDT [facility] LAB Device ID [id number] 11/08/2024 8:01 AM EDT [facility] Specimen Type POC Capillary 11/08/2024 8:01 AM EDT [facility] Blood Capillary blood specimen / Unknown 11/08/2024 8:00 AM EDT 11/08/2024 8:01 AM EDT us Nathaly Nowak MD LAB POINT OF CARE TE ST DOCKED DEVICE UNSOLICITED RESULTS Final Result Performing Organization Address City/[facility]/ZIP Co de Phone Number [facility] [address] [place] [address] * (ABNORMAL) CBC and Differential (11/08/2024 4:39 [...] lt [facility] [address] [place] [address] * (ABNORMAL) Comprehensive Metabolic Panel, Plasma (11/08/2024 [...] Final Resu lt Performing Organization Address [facility] de Phone Number [facility] [address] [place] [address] * Vancomycin, Trough, Plasma Please draw ~30 minutes prior to dose due at 0600 on 11/08. Please do NOThold dose awaiting level to return. Consider obtaining level via peripheral stick. If peripheral stick is not feasible, please ensure that line is... (11/08/2024 4:39 AM EDT) Vancomycin, Trough, Plasma 18.7 10.0 - 20.0 ug/mL 11/08/2024 5:22 AM EDT [facility] Blood Venous blood specimen / Unknown Venipuncture / Unknown 11/08/2024 4:39 AM EDT 11/08/2024 4:43 AM EDT Narrative [facility] - 11/08/2024 5:22 AM EDT Therapeutic Trough level: 10-20ug/mL Supra-therapeutic Trough level: >20 ug/mL Nathaly Nowak MD LAB BLOOD ORDERABLES Final Resu Performing Organization Address [facility] Phone Number [facility] [address] [place] [address] * (ABNORMAL) POCT glucose meter (11/07/2024 7:26 PM EDT) POCT Glucose 172(H) 74 - 99 mg/dL 11/07/2024 7:28 PM EDT [facility] Comment:Accuracy of a glucos [...] Comment 11/07/2024 7:28 PM EDT [facility] Forming Machine Upkeep Mechanic Helper ID Maximiliano Hansen II 11/07/2024 7:28 PM EDT [facility]ARE LAB Device ID [id number] 11/07/2024 7:28 PM EDT [facility] Specimen Type POC Capillary 11/07/2024 7:28 PM EDT [facility] Blood Capillary blood specimen / Unknown 11/07/2024 7:26 PM EDT 11/07/2024 7:28 PM EDT Nathaly Nowak MD LAB POINT OF CARE TE ST DOCKED DEVICE UNSOLICITED RESULTS Final Result Performing Organization Address City/[facility] Co de Phone Number [facility] [address] [place] [address] * (ABNORMAL) POCT glucose meter (11/07/2024 5:51 [...] Comment 11/07/2024 5:52 PM EDT [facility] Forming Machine Upkeep Mechanic Helper ID Brigitte Castellon 11/07/2024 5:52 PM EDT [facility]ARE LAB Device ID [id number] 11/07/2024 5:52 PM EDT [facility] Specimen Type POC Capillary 11/07/2024 5:52 PM EDT [facility] Blood Capillary blood specimen / Unknown 11/07/2024 5:51 PM EDT 11/07/2024 5:52 PM EDT Nathaly Nowak MD LAB POINT OF CARE TE ST DOCKED DEVICE UNSOLICITED RESULTS Final Result Performing Organization Address City/[facility]/ZIP Co de Phone Number [facility] [address] [place] [address] * (ABNORMAL) POCT glucose meter (11/07/2024 4:47 [...] 11/07/2024 4:48 PM EDT [facility] Forming Machine Upkeep Mechanic Helper ID Estefani Sheth 11/07/2024 4:48 PM EDT [facility] Device ID [id number] 11/07/2024 4:48 PM EDT [facility]ALTH[facility]ARE LAB Specimen Type POC Capillary 11/07/2024 4:48 PM EDT [facility] Blood Capillary blood specimen / Unknown 11/07/2024 4:47 PM EDT 11/07/2024 4:48 PM EDT Nathaly Nowak MD LAB POINT OF CARE TE ST DOCKED DEVICE UNSOLICITED RESULTS Final Result [facility] [address] [place] [id number] * (ABNORMAL) POCT glucose meter (11/07/2024 12:22 PM EDT) [facility] POCT Glucose [...] 11/07/2024 12:24 PM EDT [facility] Forming Machine Upkeep Mechanic Helper ID Estefani Sheth 11/07/2024 12:24 PM EDT [facility] Device ID [id number] 11/07/2024 12:24 PM EDT [facility] Specimen Type POC Capillary 11/07/2024 12:24 PM EDT [facility] Blood Capillary blood specimen / Unknown 11/07/2024 12:22 PM EDT 11/07/2024 12:24 PM EDT us Nathaly Nowak MD LAB POINT OF CARE TE ST DOCKED DEVICE UNSOLICITED RESULTS Final Result [facility] [address] [place] [address] * (ABNORMAL) CBC and Differential (11/07/2024 11:37 [...] AM EDT 11/07/2024 12:24 PM EDT [facility] - 11/07/2024 12:33 PM EDT Therapeutic decision making should be based on absolute values, rather than percentages. us Nathaly Nowak MD LAB BLOOD ORDERABLES Final Resu lt [facility] [address] [place] [address] * (ABNORMAL) Comprehensive Metabolic Panel, Plasma (11/07/2024 11:37 AM EDT) Glucose, Plasma 173(H) 74 - 99 mg/dL 11/07/2024 1:31 PM EDT [facility] BUN, Plasma 13 8 - 23 mg/dL 11/07/2024 1:31 PM EDT [facility] Creatinine, Plasma 0.92 0.70 - 1.20 mg/dL 11/07/2024 1:31 PM EDT [facility] BUN/Creatinine Ratio 14 11/07/2024 1:31 PM EDT [facility] [...] Address City/[facility]/ZIP Co de Phone Number [facility] [address] [place] [address] * Type and Screen (11/07/2024 11:37 AM [...] Co de Phone Number BLOOD BANK [address] [place] [address], * (ABNORMAL) POCT glucose meter (11/07/2024 10:34 [...] Comment 11/07/2024 10:36 AM EDT [facility] Forming Machine Upkeep Mechanic Helper ID Joy Iraheta 11/07/2024 10:36 AM EDT [facility]ALTH[facility]ARE LAB Device ID [id number] 11/07/2024 10:36 AM EDT [facility] Specimen Type POC Capillary 11/07/2024 10:36 AM EDT [facility] Blood Capillary blood specimen / Unknown 11/07/2024 10:34 AM EDT 11/07/2024 10:36 AM EDT Nathaly Nowak MD LAB POINT OF CARE TE ST DOCKED DEVICE UNSOLICITED RESULTS Final Result Performing Organization Address City/State/[facility] Co de Phone Number [facility] [address] [place] [address] * (ABNORMAL) POCT glucose meter (11/07/2024 9:34 AM EDT) [facility] POCT Glucose 208(H) 74 - [...] Comment 11/07/2024 9:36 AM EDT [facility] Forming Machine Upkeep Mechanic Helper ID Brigitte Castellon 11/07/2024 9:36 AM EDT [facility]ALTH[facility]ARE LAB Device ID [id number] 11/07/2024 9:36 AM EDT [facility] Specimen Type POC Capillary 11/07/2024 9:36 AM EDT [facility] Blood Capillary blood specimen / Unknown 11/07/2024 9:34 AM EDT 11/07/2024 9:36 AM EDT Nathaly Nowak MD LAB POINT OF CARE TE ST DOCKED DEVICE UNSOLICITED RESULTS Final Result Performing Organization Address City/[facility]/ZIP Co de Phone Number [facility] [address] [place] [address] * (ABNORMAL) POCT glucose meter (11/07/2024 8:20 [...] for testing. Comment 11/07/2024 8:22 AM EDT [facility] Forming Machine Upkeep Mechanic Helper ID Estefani Sheth 11/07/2024 8:22 AM EDT HEALTHCARE LAB Device ID [id number] 11/07/2024 8:22 AM EDT [facility] Specimen Type POC Capillary 11/07/2024 8:22 AM EDT [facility] Blood Capillary blood specimen / Unknown 11/07/2024 8:20 AM EDT 11/07/2024 8:22 AM EDT Nathaly Nowak MD LAB POINT OF CARE TE ST DOCKED DEVICE UNSOLICITED RESULTS Final Result Performing Organization Address City/[facility]/ZIP Co de Phone Number [facility] [address] [place] [address] * (ABNORMAL) POCT glucose meter (11/07/2024 7:21 [...] Comment 11/07/2024 7:22 AM EDT [facility] Forming Machine Upkeep Mechanic Helper ID Brigitte Castellon 11/07/2024 7:22 AM EDT [facility] LAB Device ID [id number] 11/07/2024 7:22 AM EDT [facility] Specimen Type POC Capillary 11/07/2024 7:22 AM EDT [facility] Blood Capillary blood specimen / Unknown 11/07/2024 7:21 AM EDT 11/07/2024 7:22 AM EDT Nathaly Nowak MD LAB POINT OF CARE TE ST DOCKED DEVICE UNSOLICITED RESULTS Final Result Performing Organization Address City/[facility] Co de Phone Number HEALTHCARE LAB [address] [place] [address] * (ABNORMAL) POCT glucose meter (11/07/2024 6:25 [...] Comment 11/07/2024 6:27 AM EDT HEALTHCARE LAB Forming Machine Upkeep Mechanic Helper ID Nelda Gerber 11/08/19 6:27 AM EDT HEALTHCARE LAB Device ID [id number] 11/07/2024 6:27 AM EDT HEALTHCARE LAB Specimen Type POC Capillary 11/07/2024 6:27 AM EDT [facility]ARE [facility] Blood Capillary blood specimen / Unknown 11/07/2024 6:25 AM EDT 11/07/2024 6:27 AM EDT Nathaly Nowak MD LAB POINT OF CARE TE ST DOCKED DEVICE UNSOLICITED RESULTS Final Result Performing Organization Address City/[facility] Co de Phone Number [facility] [address] [place] [address] * (ABNORMAL) POCT glucose meter (11/07/2024 5:03 [...] for testing. Comment 11/07/2024 5:08 AM EDT [facility] Forming Machine Upkeep Mechanic Helper ID Nelda Gerber 11/08/19 5:08 AM EDT [email or web address] LAB Device ID [id number] 11/07/2024 5:08 AM EDT [facility] Specimen Type POC Capillary 11/07/2024 5:08 AM EDT [facility] Blood Capillary blood specimen / Unknown 11/07/2024 5:03 AM EDT 11/07/2024 5:08 AM EDT Nathaly Nowak MD LAB POINT OF CARE TE ST DOCKED DEVICE UNSOLICITED RESULTS Final Result [facility]ARE [facility] [address] [place] [id number] * (ABNORMAL) POCT glucose meter (11/07/2024 4:16 AM EDT) [facility] POCT Glucose 142(H) 74 - [...] 11/07/2024 4:18 AM EDT [facility] Forming Machine Upkeep Mechanic Helper ID Nelda Gerber 11/08/19 4:18 AM EDT [facility] Device ID [id number] 11/07/2024 4:18 AM EDT [facility] Specimen Type POC Capillary 11/07/2024 4:18 AM EDT [facility] Blood Capillary blood specimen / Unknown 11/07/2024 4:16 AM EDT 11/07/2024 4:18 AM EDT Nathaly Nowak MD LAB POINT OF CARE TE ST DOCKED DEVICE UNSOLICITED RESULTS Final Result Performing Organization Address City/[facility] Co de Phone Number HEALTHCARE LAB [address] [place] [address] * (ABNORMAL) POCT glucose meter (11/07/2024 3:21 [...] testing. Comment 11/07/2024 3:23 AM EDT [facility] Forming Machine Upkeep Mechanic Helper ID Nelda Gerber 11/08/19 3:23 AM EDT HEALTHCARE LAB Device ID [id number] 11/07/2024 3:23 AM EDT [facility] Specimen Type POC Capillary 11/07/2024 3:23 AM EDT [facility] Blood Capillary blood specimen / Unknown 11/07/2024 3:21 AM EDT 11/07/2024 3:23 AM EDT us Nathaly Nowak MD LAB POINT OF CARE TE ST DOCKED DEVICE UNSOLICITED RESULTS Final Result [facility] [address] [place] [address] * (ABNORMAL) POCT glucose meter (11/07/2024 2:10 [...] Comment 11/07/2024 2:12 AM EDT HEALTHCARE LAB Forming Machine Upkeep Mechanic Helper ID Nelda Gerber 11/08/19 25 2:12 AM EDT [facility] Device ID [id number] 11/07/2024 2:12 AM EDT [facility] Specimen Type POC Capillary 11/07/2024 2:12 AM EDT [facility]ALTH[facility]ARE LAB Blood Capillary blood specimen / Unknown 11/07/2024 2:10 AM EDT 11/07/2024 2:12 AM EDT us Nathaly Nowak MD LAB POINT OF CARE TE ST DOCKED DEVICE UNSOLICITED RESULTS Final Result Performing Organization Address City/State/[facility] Co de Phone Number HEALTHCARE LAB [address] [place] [address] * (ABNORMAL) POCT glucose meter (11/07/2024 1:08 AM EDT) [facility] Signature POCT Glucose 135(H) 74 - 99 [...] Comment 11/07/2024 1:10 AM EDT HEALTHCARE LAB Forming Machine Upkeep Mechanic Helper ID Nelda Gerber 11/08/19 1:10 AM EDT HEALTHCARE LAB Device ID [id number] 11/07/2024 1:10 AM EDT [facility]ALTH[facility]ARE LAB Specimen Type POC Capillary 11/07/2024 1:10 AM EDT [facility] Blood Capillary blood specimen / Unknown 11/07/2024 1:08 AM EDT 11/07/2024 1:10 AM EDT us Nathaly Nowak MD LAB POINT OF CARE TE ST DOCKED DEVICE UNSOLICITED RESULTS Final Result [facility] [address] [place] [address] * (ABNORMAL) POCT glucose meter (11/07/2024 12:10 [...] for testing. Comment 11/07/2024 12:13 AM EDT [facility] Forming Machine Upkeep Mechanic Helper ID Nelda Gerber 11/08/19 12:13 AM EDT [facility] Device ID [id number] 11/07/2024 12:13 AM EDT [facility] Specimen Type POC Capillary 11/07/2024 12:13 AM EDT [facility] Blood Capillary blood specimen / Unknown 11/07/2024 12:10 AM EDT 11/07/2024 12:13 AM EDT us Nathaly Nowak MD LAB POINT OF CARE TE ST DOCKED DEVICE UNSOLICITED RESULTS Final Result Performing Organization Address City/[facility]/ZIP Co de Phone Number [facility] [address] [place] [address] * (ABNORMAL) POCT glucose meter (11/06/2024 11:14 [...] Comment 11/06/2024 11:16 PM EDT HEALTHCARE LAB Forming Machine Upkeep Mechanic Helper ID Nelda Gerber 11/07/19 11:16 PM EDT HEALTHCARE LAB Device ID [id number] 11/06/2024 11:16 PM EDT HEALTHCARE LAB Specimen Type POC Capillary 11/06/2024 11:16 PM EDT [facility]ARE LAB Blood Capillary blood specimen / Unknown 11/06/2024 11:14 PM EDT 11/06/2024 11:16 PM EDT Nathaly Nowak MD LAB POINT OF CARE TE ST DOCKED DEVICE UNSOLICITED RESULTS Final Result Performing Organization Address City/[facility] Co de Phone Number [facility]ARE [facility] [address] [place] [address] * (ABNORMAL) POCT glucose meter (11/06/2024 10:07 [...] Comment 11/06/2024 10:09 PM EDT HEALTHCARE LAB Forming Machine Upkeep Mechanic Helper ID Nelda Gerber 11/07/19 10:09 PM EDT HEALTHCARE LAB Device ID [id number] 11/06/2024 10:09 PM EDT HEALTHCARE LAB Specimen Type POC Capillary 11/06/2024 10:09 PM EDT [facility]ALTH[facility]ARE LAB Blood Capillary blood specimen / Unknown 11/06/2024 10:07 PM EDT 11/06/2024 10:09 PM EDT Nathaly Nowak MD LAB POINT OF CARE TE ST DOCKED DEVICE UNSOLICITED RESULTS Final Result Performing Organization Address City/[facility]/ZIP Co de Phone Number [facility]ARE [facility] [address] [place] [address] * (ABNORMAL) POCT glucose meter (11/06/2024 8:22 [...] Comment 11/06/2024 8:25 PM EDT HEALTHCARE LAB Forming Machine Upkeep Mechanic Helper ID Nelda Gerber 11/07/19 8:25 PM EDT [facility] Device ID [id number] 11/06/2024 8:25 PM EDT HEALTHCARE LAB Specimen Type POC Capillary 11/06/2024 8:25 PM EDT [facility] Blood Capillary blood specimen / Unknown 11/06/2024 8:22 PM EDT 11/06/2024 8:25 PM EDT us Nathaly Nowak MD LAB POINT OF CARE TE ST DOCKED DEVICE UNSOLICITED RESULTS Final Result Performing Organization Address City/State/[facility] Co de Phone Number [facility] [address] [place] [address] * (ABNORMAL) POCT glucose meter (11/06/2024 7:31 [...] Comment 11/06/2024 7:32 PM EDT HEALTHCARE LAB Forming Machine Upkeep Mechanic Helper ID Nelda Gerber 11/07/19 7:32 PM EDT HEALTHCARE LAB Device ID [id number] 11/06/2024 7:32 PM EDT HEALTHCARE LAB Specimen Type POC Capillary 11/06/2024 7:32 PM EDT [facility]ARE LAB Blood Capillary blood specimen / Unknown 11/06/2024 7:31 PM EDT 11/06/2024 7:32 PM EDT Nathaly Nowak MD LAB POINT OF CARE TE ST DOCKED DEVICE UNSOLICITED RESULTS Final Result Performing Organization Address City/[facility]/ZIP Co de Phone Number [facility]ARE [facility] [address] [place] [address] * (ABNORMAL) POCT glucose meter (11/06/2024 6:15 [...] Comment 11/06/2024 6:17 PM EDT HEALTHCARE LAB Forming Machine Upkeep Mechanic Helper ID Estefani Sheth 11/06/2024 6:17 PM EDT [facility] Device ID [id number] 11/06/2024 6:17 PM EDT [facility] Specimen Type POC Capillary 11/06/2024 6:17 PM EDT HEALTHCARE LAB Blood Capillary blood specimen / Unknown 11/06/2024 6:15 PM EDT 11/06/2024 6:17 PM EDT Nathaly Nowak MD LAB POINT OF CARE TE ST DOCKED DEVICE UNSOLICITED RESULTS Final Result [facility] [address] [place] [address] * (ABNORMAL) POCT glucose meter (11/06/2024 4:57 [...] Comment 11/06/2024 4:58 PM EDT HEALTHCARE LAB Forming Machine Upkeep Mechanic Helper ID Estefani Sheth 11/06/2024 4:58 PM EDT HEALTHCARE LAB Device ID [id number] 11/06/2024 4:58 PM EDT HEALTHCARE LAB Specimen Type POC Capillary 11/06/2024 4:58 PM EDT [facility]ARE LAB Blood Capillary blood specimen / Unknown 11/06/2024 4:57 PM EDT 11/06/2024 4:58 PM EDT Nathaly Nowak MD LAB POINT OF CARE TE ST DOCKED DEVICE UNSOLICITED RESULTS Final Result Performing Organization Address City/State/[facility] Co de Phone Number [facility]ARE [facility] [address] [place] [address] * (ABNORMAL) POCT glucose meter (11/06/2024 2:08 [...] Comment 11/06/2024 2:09 PM EDT HEALTHCARE LAB Forming Machine Upkeep Mechanic Helper ID Brigitte Castellon 11/06/2024 2:09 PM EDT HEALTHCARE LAB Device ID [id number] 11/06/2024 2:09 PM EDT HEALTHCARE LAB Specimen Type POC Capillary 11/06/2024 2:09 PM EDT HEALTH[facility]ARE LAB Blood Capillary blood specimen / Unknown 11/06/2024 2:08 PM EDT 11/06/2024 2:09 PM EDT us Nathaly Nowak MD LAB POINT OF CARE TE ST DOCKED DEVICE UNSOLICITED RESULTS Final Result Performing Organization Address City/[facility]/ZIP Co de Phone Number [facility]ARE [facility] [address] [place] [address] * (ABNORMAL) POCT glucose meter (11/06/2024 12:27 [...] Comment 11/06/2024 12:28 PM EDT HEALTHCARE LAB Forming Machine Upkeep Mechanic Helper ID Jacinta Galloway 11/06/2024 12:28 PM EDT HEALTHCARE LAB Device ID [id number] 11/06/2024 12:28 PM EDT [facility] Specimen Type POC Capillary 11/06/2024 12:28 PM EDT [facility] Blood Capillary blood specimen / Unknown 11/06/2024 12:27 PM EDT 11/06/2024 12:28 PM EDT Nathaly Nowak MD LAB POINT OF CARE TE ST DOCKED DEVICE UNSOLICITED RESULTS Final Result Performing Organization Address City/[facility] Co de Phone Number [facility] [address] [place] [address] * (ABNORMAL) Tissue Culture and Gram Stain (11/06/2024 11:34 AM EDT) Pathologist [facility] Culture Moderate Growth 7:35 AM EDT [facility] Culture 2+ Enterobacter cloacae complex(A) ANGÉLICA 11/15/2024 7:35 AM EDT [facility] Comment: This isolate has been identified using the FDA Approved [employer] [place] System The organism value for this result has been updated. These results have been appended to the previously preliminary verified report. Edited result: Previously reported as Gram Negative Jesus on 11/07/2024 at 1434 EDT. Culture 2+ Streptococcus mitis/oralis group(A) ANGÉLICA 11/15/2024 7:35 AM EDT [facility] Comment: This isolate has been identified using the FDA Approved [employer] [place] System The organism value for this result has been updated. These results have been appended to the previously preliminary verified report. Culture 2+ Pasteurella stomatis(A) ANGÉLICA 11/15/2024 7:35 AM EDT [facility] Comment: This result was determined by MALDI tof mass spectrometry using the [employer] database and is for research use only. [...] Final [facility] [address] [place] [address] * (ABNORMAL) Anaerobic Culture (11/06/2024 11:34 AM EDT) Culture No anaerobes isolated 11/14/2024 1:25 PM EDT [facility] Culture Staphylococcus pseudintermedius( A) 11/14/2024 1:25 PM EDT [facility] Comment: This result was determined by MALDI tof mass spectrometry using the [employer] database and is for research use only. [...] GENERAL ATIYA FRITZ Edited Result - Final [facility] [address] [place] [address] * (ABNORMAL) Routine Culture and Gram Stain (11/06/2024 11:29 AM EDT) Culture Moderate Growth 5:29 PM EDT [facility] Culture Enterobacter cloacae complex(A) 11/08/2024 5:29 PM EDT [facility] Comment: This isolate has been identified using the FDA Approved [employer] [place] System For susceptibility results refer to: - [id number] The organism value for this result has [...] ORDAna FRITZ Final Result Performing Organization Address City/[facility] Co de Phone Number [facility] [address] [place] [address] * Fungal Culture, Routine (11/06/2024 11:29 AM EDT) Culture No Fungal Growth at 1 Week 11/13/2024 8:29 AM EDT [facility] Swab Topography unknown / Unknown 11/06/2024 11:29 AM EDT 11/06/2024 12:19 PM EDT Comment:Pre-op diagnosis: Surgical wound infection [T81.49XA] Nathaly Nowak MD LAB MICROBIOLOGY - GENERAL ORDE RABONEIDA Final Result [facility] [address] [place] [address] * (ABNORMAL) Anaerobic Culture (11/06/2024 11:29 AM EDT) Culture No anaerobes isolated 11/14/2024 1:25 PM EDT [facility] Culture Streptococcus mitis/oralis group(A) 11/14/2024 1:25 PM EDT [facility] Comment: This result was determined by MALDI tof mass spectrometry using the [employer] database and is for research use only. [...] been identified using the FDA Approved MALDI [employer] [place] System This is an appended [...] Final [facility] [address] [place] [address] * Routine Culture and Gram Stain (11/06/2024 [...] ATIYA FRITZ Final Result Performing Organization Address [facility] Co de Phone Number [facility] [address] [place] [address] * Fungal Culture, Routine (11/06/2024 11:28 AM EDT) Culture No Fungal Growth at 1 Week 11/13/2024 8:29 AM EDT [facility] Swab Topography unknown / Unknown 11/06/2024 11:28 AM EDT 11/06/2024 12:20 PM EDT Comment:Pre-op diagnosis: Surgical wound infection [T81.49XA] us Nathaly Nowak MD LAB MICROBIOLOGY - GENERAL ORDAna FRITZ Final Result Performing Organization Address City/[facility]/ZIP Co de Phone Number [facility] [address] [place] [address] * Anaerobic Culture (11/06/2024 11:28 AM EDT) Culture No growth at day 4 11/13/2024 12:53 PM EDT [facility] Swab Topography unknown / Unknown 11/06/2024 11:28 AM EDT 11/06/2024 12:20 PM EDT Comment:Pre-op diagnosis: Surgical wound infection [T81.49XA] Nathaly Nowak MD LAB MICROBIOLOGY - GENERAL [facility]CTION[facility]a [facility] Final Result Performing Organization Address City/[facility] Co de Phone Number [facility] [address] [place] [address] * (ABNORMAL) POCT glucose meter (11/06/2024 10:16 [...] Comment 11/06/2024 10:18 AM EDT HEALTHCARE LAB Forming Machine Upkeep Mechanic Helper ID Lacy Griffin 11/07/19 25 10:18 AM EDT [facility] Device ID [id number] 11/06/2024 10:18 AM EDT [facility] Specimen Type POC Capillary 11/06/2024 10:18 AM EDT [facility] Blood Capillary blood specimen / Unknown 11/06/2024 10:16 AM EDT 11/06/2024 10:18 AM EDT us Nathaly Nowak MD LAB POINT OF CARE TE ST DOCKED DEVICE UNSOLICITED RESULTS Final Result Performing Organization Address City/[facility] Co de Phone Number [facility]ALTHCARE LAB [address] [place] [address] * (ABNORMAL) POCT glucose meter (11/06/2024 5:58 [...] 11/06/2024 6:01 AM EDT [facility] Forming Machine Upkeep Mechanic Helper ID Raj Laird 11/07/19 6:01 AM EDT [facility] Device ID [id number] 11/06/2024 6:01 AM EDT [facility] Specimen Type POC Capillary 11/06/2024 6:01 AM EDT [facility]ALTH[facility]ARE LAB Blood Capillary blood specimen / Unknown 11/06/2024 5:58 AM EDT 11/06/2024 6:01 AM EDT Nathaly Nowak MD LAB POINT OF CARE TE ST DOCKED DEVICE UNSOLICITED RESULTS Final Result Performing Organization Address [facility] Co de Phone Number [facility]ARE LAB [address] [place] [address] * (ABNORMAL) POCT glucose meter (11/06/2024 5:36 [...] 11/06/2024 5:38 AM EDT [facility] Forming Machine Upkeep Mechanic Helper ID Shahid Sanches 11/06/2024 5:38 AM EDT HEALTHCARE LAB Device ID [id number] 11/06/2024 5:38 AM EDT [facility] Specimen Type POC Capillary 11/06/2024 5:38 AM EDT [facility]ALTH[facility]ARE [facility] Blood Capillary blood specimen / Unknown 11/06/2024 5:36 AM EDT 11/06/2024 5:38 AM EDT us Nathaly Nowak MD LAB POINT OF CARE TE ST DOCKED DEVICE UNSOLICITED RESULTS Final Result Performing Organization Address City/[facility]/ZIP Co de Phone Number [facility] [address] [place] [address] * (ABNORMAL) Hemoglobin A1c (11/06/2024 1:07 AM [...] Adults <6.0% Children and Adolescents <7.5% Source: [place] [employer]. Standards of medical care in diabetes,2017. Diabetes Care.2017:40 (suppl 1):S1-S135. us Nathaly Nowak MD LAB BLOOD ORDERABLES Final Resu lt [facility] [address] [place] [address] * Blood Culture (Aerobic/Anaerobet Set) (11/06/2024 1:07 AM EDT) Culture No growth at day 5 11/11/2024 2:49 AM EDT [facility] Blood Structure of right hand / Unknown Venipuncture / Unknown 11/06/2024 1:07 AM EDT 11/06/2024 2:36 AM EDT us Nathaly Nowak MD LAB MICROBIOLOGY - GENERAL ORDE RABLES Final Result [facility] [address] [place] [address] * Blood Culture (Aerobic/Anaerobet Set) (11/06/2024 1:07 AM EDT) Culture No growth at day 5 11/11/2024 3:01 AM EDT [facility] Blood Structure of antecubital vein / Unknown Venipuncture / Unknown 11/06/2024 1:07 AM EDT 11/06/2024 2:36 AM EDT us Nathaly Nowak MD LAB MICROBIOLOGY - GENERAL ATIYA FRITZ Final Result [facility] [address] [place] [address] * (ABNORMAL) Basic metabolic panel (11/06/2024 1:07 [...] Final Resu lt Performing Organization Address [facility]/ZIP Co de Phone Number [facility] [address] [place] [address] * Phosphorus (11/06/2024 1:07 AM EDT) Phosphorus, Plasma 3.2 2.5 - 4.5 mg/dL 11/06/2024 1:41 AM EDT [facility] Blood Venous blood specimen / Unknown Venipuncture / Unknown 11/06/2024 1:07 AM EDT 11/06/2024 1:12 AM EDT Nathaly Nowak MD LAB BLOOD ORDERABLES Final Resu lt Performing Organization Address [facility] Co de Phone Number [facility] [address] [place] [address] * Magnesium (11/06/2024 1:07 AM EDT) Magnesium, Plasma 2.2 1.9 - 2.4 mg/dL 11/06/2024 1:41 AM EDT [facility] Blood Venous blood specimen / Unknown Venipuncture / Unknown 11/06/2024 1:07 AM EDT 11/06/2024 1:12 AM EDT Nathaly Nowak MD LAB BLOOD ORDERABLES Final Resu lt Performing Organization Address City/[facility] Co de Phone Number [facility] [address] [place] [address] * (ABNORMAL) CBC (11/06/2024 1:07 AM EDT) [...] lt [facility] [address] [place] [address] * [facility] (11/06/2024 12:58 AM EDT) Extra Hold for add-ons 11/06/2024 3:21 AM EDT [facility] Comment:Auto resulted. Blood Venous blood specimen / Unknown 11/06/2024 12:58 AM EDT 11/06/2024 1:13 AM EDT Result Ghazala Nowak MD LAB BLOOD ORDERABLES Final Resu lt Performing Organization Address [facility]/ZIP Co de Phone Number [facility] [address] [place] [address] * Gold Top (11/06/2024 12:58 AM EDT) Extra Hold for add-ons 11/06/2024 3:21 AM EDT [facility] Comment:Auto resulted. Blood Venous blood specimen / Unknown 11/06/2024 12:58 AM EDT 11/06/2024 1:13 AM EDT Result Ghazala Nowak MD LAB BLOOD ORDERABLES Final Resu lt Performing Organization Address [facility] de Phone Number [facility] [address] [place] [address] * Light Green Top (11/06/2024 12:58 AM EDT) Extra Hold for add-ons 11/06/2024 3:21 AM EDT [facility] Comment:Auto resulted. Blood Venous blood specimen / Unknown 11/06/2024 12:58 AM EDT 11/06/2024 1:13 AM EDT Result Ghazala Nowak MD LAB BLOOD ORDERABLES Final Resu lt Performing Organization Address City/[facility] Co de Phone Number [facility] [address] [place] [address] * Light Blue Top (11/06/2024 12:58 AM EDT) Extra Hold for add-ons 11/06/2024 3:21 AM EDT [facility] Comment:Auto resulted. Blood Venous blood specimen / Unknown 11/06/2024 12:58 AM EDT 11/06/2024 1:13 AM EDT us Nathaly Nowak MD LAB BLOOD ORDERABLES Final Resu lt Performing Organization Address City/[facility]/ZIP Co de Phone Number [facility] [address] [place] [address] * Light Blue Top (11/06/2024 12:58 AM EDT) Pathologist [facility] Extra Hold for add-ons 11/06/2024 3:21 AM EDT [facility] Comment:Auto resulted. Blood Venous blood specimen / Unknown 11/06/2024 12:58 AM EDT 11/06/2024 1:13 AM EDT us Nathaly Nowak MD LAB BLOOD ORDERABLES Final Resu lt Performing Organization Address [facility] Co de Phone Number [facility] [address] [place] [address] * (ABNORMAL) POCT glucose meter (11/06/2024 12:45 AM EDT) [facility] POCT Glucose 204(H) 74 - [...] 11/06/2024 12:48 AM EDT [facility] Forming Machine Upkeep Mechanic Helper ID Raj Laird 11/07/19 12:48 AM EDT HEALTHCARE LAB Device ID [id number] 11/06/2024 12:48 AM EDT [facility] Specimen Type POC Capillary 11/06/2024 12:48 AM EDT [facility] Blood Capillary blood specimen / Unknown 11/06/2024 12:45 AM EDT 11/06/2024 12:48 AM EDT us Nathaly Nowak MD LAB POINT OF CARE TE ST DOCKED DEVICE UNSOLICITED RESULTS Final Result Performing Organization Address City/[facility] Co de Phone Number [facility]ARE [facility] [address] [place] [address] documented in this encounter Visit Diagnoses Diagnosis [...] needed, Starting on Mon11/06/24 at 0753, Until [facility] 11/14/24 at 1804, Routine, On Unit [...] Provider: Devora Bo)[id number] (Given - Provider: Jonathan Vale, CHRISTIAN) [phone] [...] documented as of this encounter Care Teams Honey Producer Relationship Specialty Start Date End Date Asad Victor MD [address] [place] [id number] PCP - General 10/07/22 documented as of this encounter
--- OUTSIDE RECORDS SUMMARY | 2024-11-06 10:47 | XMS_ITS | Encounter Summary ---
Author Organization Healthcare Address [address] [place] [address] Care Team Providers Care Plant Operations Coordinator Name Role Phone Asad Victor MD Primary Care Provider + [phone] Reason for Visit * Auth/Cert (Routine) Specialty Diagnoses / Procedures Referred By Contac t Referred To Contact Diagnoses Wound infection Post-op Vasc Sx wounds - sx on 10/17 at Nathaly Nowak MD [address] [facility] [address] [place] [address] Phone: tel: fax: PAV A Emergency Department [address] [place] [address] Phone: tel: Referral ID Status Reason Start Date Expiration Date Visits Re quested Visits Authorized [id number] 1 1 Encounter Details Date Type Department Care Team (Late st Contact Info) Description 11/06/2024 10:47 AM EDT Anesthesia Event PAV A OPERATING ROOM [address] [place] [address] Bill Sue MD [address] [place] [address] Sabrina Mckeon PA [address] [facility] [address] [place] [address] Anesthesia Record Procedure Summary Procedure [...] drink first t dino in the morning (EYE-CIVIL ENGINEERING SPECIALIST) to steady your nerves or to [...] and Staff Patient location during procedure: OR PARTS COUNTERPERSON: Asad Lechuga CRNA, DNP Performed: PARTS COUNTERPERSON Patient Condition Indications for airway management: anesthesia [...] placement (Left) Location: P[facility]-A OR 16 / [place] OR Surgeons: Nathaly Nowak MD [facility] Moon Ana Bobby is a 64 y.o. male [...] Abnormal Ventricular Rate 85 Atrial Rate 85 AR Interval 146 QRSD Interval 128 QT Interval 390 QTC Interval 464 P [place] 52 R [place] 263 T Wave [place] 57 Diagnosis Atrial-sensed ventricular-paced rhythm Diagnosis Biventricular [...] is no recent study available for direct jkoi-vz-lpyk comparison. [facility]: Pre-operative CIED Report Assessment and Sara- Procedural Reommendations: Name: Mono Bobby Date: 10/17/2024 : 1960 Age: 64 y.o. Patient has a Put In Beat Adjuster: Berger PRESENTATION MANAGER-PM Remaining battery longevity adequate. Lead integrity [...] RVR s/p CABG), CAD (CAD s/p multiple IA's and 3V CABG02/2019, 2 stents prior to CABG), carotid artery disease (carotid artery disease s/p R CEA 2016), dysrhythmias (3rd degree AV block PRESENTATION MANAGER-P placed 08/2023 for Wenkeback with 11 sec pause), hyperlipidemia, pacemaker and PVD. Does not have angina, CHF, murmur, orthopnea, syncope or valvular heart disease. hypertension: Cardio additional comments: Follows with OSH Card last seen 09/25/24 ([place]) . Respiratory: home oxygen (2L). no asthma: [...] ENDARTERECTOMY N/A 2017 Endarterectomy Carotid Artery from [employer] CORONARY ANGIOPLASTY Left Coronary Angiography With Concomitant Left Heart Catheterization from [employer] CORONARY ARTERY BYPASS GRAFT N/A 2018 3V ELBOW SURGERY Right ENDARTERECTOMY Left 10/17/2024 common/SFA/Profunda thromboendarterectomy, EIA/PERMANENT MOLD SUPERVISOR stent HERNIA REPAIR KNEE ARTHROSCOPY Left VASCULAR SURGERY Left 09/21/2024 PERMANENT MOLD SUPERVISOR pseudoaneurym injection [5] Social History Tobacco Use [...] Description 11/29/2024 2:30 PM EDT Office Visit [facility] [address] [place] [address] Oscar Appiah MD [address] [facility] [address] [place] [address] documented as of this encounter Goals Goal Patient Goal Type Associated Problems Recent Progress Patient-Stated? Author Autogenera louise Goal Care Plan Autogenerated Problem No Ekta Arnett documented as of this encounter Procedures Procedure Name Priority Date/Time Associated Diagnosis Comments PB ANESTHESIA PLACEHOLDER Routine 11/06/2024 10:58 AM EDT [place] AN ELECTIVE ENDOTRACHEAL AIRWAY Routine 11/06/2024 10:58 AM EDT documented in this encounter Results * [place] AN ELECTIVE ENDOTRACHEAL AIRWAY, PB ANESTHESIA PLACEHOLDER (11/06/2024 10:58 AM EDT) Narrative Asad Lechuga CRNA, DNP - 11/06/2024 10:58 AM EDT Asad Lechuga CRNA, DNP 11/06/2024 11:05 AM Airway Date/Time: 11/06/2024 10:58 AM Reason: elective Airway not difficult General Information and Staff Patient location during procedure: OR PARTS COUNTERPERSON: Asad Lechuga CRNA, DNP Performed: ISH Patient [...] documented as of this encounter Care Teams Plant Operations Coordinator Relationship Specialty Start Date End Date Asad Victor MD [address] [place], [place] [address] PCP - General 10/07/22 documented as of this encounter
--- OUTSIDE RECORDS SUMMARY | 2024-11-18 13:10 | XMS_ITS | Encounter Summary ---
Author Organization [employer] ([place], [place], [place], [place]) Address [address] [place] [address] Care Team Providers Care Auto Body Man Name Role Phone Unavailable Primary Care Provider Unavailabl e Reason for Visit * Reason Comments Wound Care Encounter Details Date Type Department Care Team (Late st Contact Info) Description 11/18/2024 1:10 PM EDT Office Visit [facility] 1 [place] [address] Jerry Monroe Jr., MD [address] [place] [address] Non-pressure chronic ulcer of skin of [...] health nurse( if you have home health) [facility] for an appointment. documented in this [...] upper leg. Patient was admitted to the [facility] on November 05, 2024 and [...] line. Patient is getting daily infusions at [facility] through his PICC line for antibiotics. [...] provider verified the correct patient, procedure, equipment, manager technical support, and site/side marked as required. Debridement Details [...] provider verified the correct patient, procedure, equipment, manager technical support, and site/side marked as required. Debridement Details [...] Team (Late st Contact Info) Description 11/29/2024 4:00 PM EDT Clinical Support [address] [address] 12/02/2024 2:15 PM EDT Clinical Support [address] [address] 12/04/2024 3:10 PM EDT Office Visit [address] [address] Jerry Monroe Jr., MD [address] [place] [address] 12/06/2024 4:15 PM EDT Clinical Support [address] [address] 12/09/2024 3:30 PM EDT Clinical Support [address] [address] 12/11/2024 2:40 PM EDT Office Visit [address] [address] Jerry Monroe Jr., MD [address] [place] [address] 12/13/2024 3:30 PM EDT Clinical Support [address] [address] 12/16/2024 3:30 PM EDT Clinical Support [facility] 1 [place] [address] 12/18/2024 3:00 PM EDT Office Visit [facility] 1 [place] [address] Jerry Monroe Jr., MD [address] [place] [address] 12/20/2024 3:30 PM EDT Clinical Support [facility] 1 [place] [address] documented as of this encounter Procedures Procedure Name Priority Date/Time Associated Diagnosis Comments NE DEBRIDEMENT MUSCLE &/FASCIA EA ADDL 20 SQ CM Routine 11/18/2024 1:10 PM EDT 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) Localized tissue (HCC) Other specified local infections of the skin and subcutaneous tissue NE DEBRIDEMENT MUSCLE &/FASCIA EA ADDL 20 SQ CM Routine 11/18/2024 1:10 PM EDT 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) Localized tissue (HCC) Other specified local infections of the skin and subcutaneous tissue NE DEBRIDEMENT MUSCLE &/FASCIA 1ST 20 SQ CM/< Routine 11/18/2024 1:10 PM EDT 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) Localized tissue (HCC) Other specified local infections of the skin and subcutaneous tissue NE DEBRIDEMENT MUSCLE &/FASCIA EA ADDL 20 SQ CM Routine 11/18/2024 1:10 PM EDT 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) Localized tissue (HCC) Other specified local infections of the skin and subcutaneous tissue NE DEBRIDEMENT MUSCLE &/FASCIA EA ADDL 20 SQ CM Routine 11/18/2024 1:10 PM EDT 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) Localized tissue (HCC) Other specified local infections of the skin and subcutaneous tissue NE DEBRIDEMENT MUSCLE &/FASCIA 1ST 20 SQ CM/< Routine 11/18/2024 1:10 PM EDT 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 Debridement Details [...] MD PROCEDURE/MINOR SURGICAL ORDERABLES Final Result * NE DEBRIDEMENT MUSCLE &/FASCIA 1ST 20 SQ CM/<, NE DEBRIDEMENT MUSCLE &/FASCIA EA ADDL 20SQ CM, NE DEBRIDEMENT MUSCLE &/FASCIA EA ADDL 20 SQ [...] provider verified the correct patient, procedure, equipment, manager technical support, and site/side marked as required. Debridement Details [...]
--- OUTSIDE RECORDS SUMMARY | 2024-11-20 14:15 | XMS_ITS | Encounter Summary ---
Author Organization [employer] ([place], [place], [place], [place]) Address [address] [place] [address] Care Team Providers Care Portable Router Operator Name Role Phone Unavailable Primary Care Provider Unavailabl e Reason for Visit * Reason Comments Wound Care Nurse visit for woun d vac change, wound care and dressing change Encounter Details Date Type Department Care Team (Late st Contact Info) Description 11/20/2024 2:15 PM EDT Clinical Support [facility] 1 [place] [address] Jerry Monroe Jr., MD [address] [place] [address] Non-pressure chronic ulcer of skin of [...] Description 11/29/2024 4:00 PM EDT Clinical Support [facility] 1 [place] [address] 12/02/2024 2:15 PM EDT Clinical Support [facility] 1 [place] [address] 12/04/2024 3:10 PM EDT Office Visit [facility] 1 [place] [address] Jerry Monroe Jr., MD [address] [place] [address] 12/06/2024 4:15 PM EDT Clinical Support [address] [address] 12/09/2024 3:30 PM EDT Clinical Support [address] [address] 12/11/2024 2:40 PM EDT Office Visit [address] [address] Jerry Monroe Jr., MD [address] [place] [address] 12/13/2024 3:30 PM EDT Clinical Support [facility] [address] [address] 12/16/2024 3:30 PM EDT Clinical Support [facility] [address] [address] 12/18/2024 3:00 PM EDT Office Visit [address] [address] Jerry Monroe Jr., MD [address] [place] [address] 12/20/2024 3:30 PM EDT Clinical Support [facility] 1 [place] [address] documented as of this encounter Results * Wound Treatment (11/22/2024 5:14 PM EDT) us Jerry Monroe Jr., MD NURSING PATHWAYS ORDERABL ES Final Result documented in this encounter Visit Diagnoses Diagnosis 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
--- OUTSIDE RECORDS SUMMARY | 2024-11-22 16:15 | XMS_ITS | Encounter Summary ---
Author Organization [employer] ([place], [place], [place], [place]) Address [address] [place] [address] Care Team Providers Care Telehealth Case Manager Name Role Phone Unavailable Primary Care Provider Unavailabl e Reason for Visit * Reason Comments Wound Care Encounter Details Date Type Department Care Team (Late st Contact Info) Description 11/22/2024 4:15 PM EDT Clinical Support [facility] 1 [place] [address] Jerry Monroe Jr., MD [address] [place] [address] Non-pressure chronic ulcer of skin of [...] Description 11/29/2024 4:00 PM EDT Clinical Support [facility]ound [facility] [place] 1 [place] [address] 12/02/2024 2:15 PM EDT Clinical Support [facility] [place] 1 [place] [address] 12/04/2024 3:10 PM EDT Office Visit [facility] [place] 1 [place] [address] Jerry Monroe Jr., MD [address] [place] [address] 12/06/2024 4:15 PM EDT Clinical Support [facility] [place] 1 [place] [address] 12/09/2024 3:30 PM EDT Clinical Support [facility] 1 [place] [address] 12/11/2024 2:40 PM EDT Office Visit [facility] [place] 1 [place] [address] Jerry Monroe Jr., MD [address] [place] [address] 12/13/2024 3:30 PM EDT Clinical Support [facility] Care [place] 1 [place] [address] 12/16/2024 3:30 PM EDT Clinical Support [facility] [place] 1 [place] [address] 12/18/2024 3:00 PM EDT Office Visit [facility] [place] 1 [place] [address] Jerry Monroe Jr., MD [address] [place] [address] 12/20/2024 3:30 PM EDT Clinical Support [facility] [place] 1 [place] [address] documented as of this encounter Procedures Procedure [...]
--- OUTSIDE RECORDS SUMMARY | 2024-11-27 14:20 | XMS_ITS | Encounter Summary ---
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 [address] [place] [phone] Jerry Monroe Jr., MD [address] [place] [address] Non-pressure chronic ulcer of skin of [...] Sign Reading Time Taken Comments Blood Pressure 173/83 11/27/2024 2:11 PM EDT Pulse 66 11/27/2024 2:11 PM EDT Temperature 36.4 C (97.5 F) 11/27/2024 2:11 PM EDT Respiratory Rate 18 11/27/2024 2:11 PM EDT Oxygen Saturation - - Inhaled Oxygen Concentration - - Weight - - Height - - Body Mass Index - - documented in this encounter Patient Instructions * Patient Instructions* Melissa Hernandez RN - 11/27/2024 2:20 PM EDT wound care at home: Leave your dressings in place Keep clean and dry until next visit signs and symptoms of infection to include: Increased redness, warmth or drainage with odor, or fever. call wound center for any concerns Call 911 or go to the ER with an emergency documented in this encounter Progress Notes * Melissa Hernandez RN - 11/27/2024 2:20 PM EDT Images from the original note were not included. Attached media from the original note were not included. 11/27/24 1431 Wound 11/18/24 Groin Left Date First Assessed/Time First Assessed: 11/18/24 1508 Wound Approximate Age at First Assessment (Weeks): 4 weeks Location: Groin Wound Location Orientation: Left Wound Image Images linked Site Assessment Granulation;Sloughing Sara-Wound Assessment Scarred Wound Length (cm) 7 cm Wound Width (cm) 6.5 cm Wound Surface Area (cm^2) 45.5 cm^2 Wound Depth (cm) 4.5 cm Wound Volume (cm^3) 204.75 cm^3 Tunneling 1.5 cm Tunneling Clock Position of Wound 10 Margins Well-defined edges Wound Healing % 21 Drainage Description Serosanguineous Drainage Amount Large Odor None Wound Bed Granulation (%) 60 % Wound Bed Slough (%) 40 % Non-staged Wound Description Full thickness * Melissa Hernandez RN - 11/27/2024 2:20 PM EDT Images from the original note were not included. Attached media from the original note were not included. 11/27/24 1438 Wound 11/18/24 Leg upper Left;Medial Date First Assessed/Time First Assessed: 11/18/24 1505 Wound Approximate Age at First Assessment (Weeks): 4 weeks Location: Leg upper Wound Location Orientation: Left;Medial Wound Image Images linked Site Assessment Granulation;Sloughing Sara-Wound Assessment Scarred Wound Length (cm) 5.5 cm Wound Width (cm) 1.2 cm Wound Surface Area (cm^2) 6.6 cm^2 Wound Depth (cm) 5.3 cm Wound Volume (cm^3) 34.98 cm^3 Margins Well-defined edges Wound Healing % -10 Drainage Description Serosanguineous Drainage Amount Large Odor None Wound Bed Granulation (%) 90 % Wound Bed Slough (%) 10 % Non-staged Wound Description Full thickness * Jerry Monroe Jr., MD - 11/27/2024 2:20 PM EDTAssociated Order(s): Debridement; Debridement Subjective 11/27/24 - CJA -patient returns to the wound care center today for management of the 2 wounds of his abdomen and leg. Both wound looks significantly improved. They are measuring smaller. Muscular debridement medically necessary both wound sites today due to nonviable tissue present on the surface of the wound. Wound without any surrounding erythema induration odor nor periwound maceration. Continuewith current treatment as it is working. 11/18/24 - CJA -this is a gentleman who comes in today with 2 wounds of his left groin and left upper leg. Patient was admitted to the [facility] on November 05, 2024 and dischargedon November [...] rash. Objective Last Recorded Vitals Blood pressure (!) 173/83, pulse 66, temperature 97.5 ??F (36.4 ??C), temperature source Temporal Artery, resp. rate 18. Physical Exam Constitutional: Appearance: Normal appearance. Musculoskeletal: [...] No results found for this visit on 11/27/24 (from the past 24 hours). No image [...] Diabetes mellitus with skin ulcer (HCC) DOS: 11/27/2024 Patient ID: Mono Bobby is a 64 y.o. male. Debridement Wound 11/18/24 Leg upper Left;Medial Performed by: Jerry Monroe Jr., MD Authorized by: Jerry Monroe Jr., MD Consent Consent obtained? written Consent given by: patient Risks discussed? procedural risks discussed Immediately prior to the procedure a time out was called and the performing provider verified the correct patient, procedure, equipment, therapeutic support staff, and site/side marked as required. Debridement Details Performed by: physician Debridement type: surgical Level of debridement: muscle Pain control: lidocaine 2% Pain control administration type: topical Pre-debridement measurements Length (cm): 5.5 Width (cm): 1.2 Depth (cm): 5.3 Surface Area (cm^2): 6.6 Post-debridement measurements Length (cm): 5.6 Width (cm): 1.3 Depth (cm): 5.4 Percent debrided: 100% Surface Area (cm^2): 7.28 Area Debrided (cm^2): 7.28 Volume (cm^3): 39.31 Tissue and other material debrided: adipose, dermis, epidermis, fascia, hypergranulation, muscle and subcutaneous tissue Devitalized tissue debrided: biofilm, fibrin and slough Instrument(s) utilized: curette, forceps and scissors Bleeding: small Hemostasis obtained with: pressure Procedural pain (0-10): 2 Post-procedural pain: 1 Response to treatment: procedure was tolerated well Debridement Wound 11/18/24 Groin Left Performed by: Jerry Monroe Jr., MD Authorized by: Jerry Monroe Jr., MD Consent Consent obtained? written Consent given by: patient Risks discussed? procedural risks discussed Immediately prior to the procedure a time out was called and the performing provider verified the correct patient, procedure, equipment, therapeutic support staff, and site/side marked as required. Debridement Details Performed by: physician Debridement type: surgical Level of debridement: muscle Pain control: lidocaine 2% Pain control administration type: topical Pre-debridement measurements Length (cm): 7 Width (cm): 6.5 Depth (cm): 4.5 Surface Area (cm^2): 45.5 Post-debridement measurements Length (cm): 7.1 Width (cm): 6.6 Depth (cm): 4.6 Percent debrided: 100% Surface Area (cm^2): 46.86 Area Debrided (cm^2): 46.86 Volume (cm^3): 215.56 Tissue and other material debrided: adipose, dermis, epidermis, fascia, hypergranulation, muscle and subcutaneous tissue Devitalized tissue debrided: biofilm, fibrin and slough Instrument(s) utilized: curette, scissors and forceps Bleeding: small Hemostasis obtained with: pressure Procedural pain (0-10): 2 Post-procedural pain: 1 Response to treatment: procedure was tolerated well * Melissa Hernandez RN - 11/27/2024 2:20 PM EDT Pt here for a follow-up wound care provider visit. Removed pt's previously ordered dressings 1 piece of black foam in the left groin area and 1 piece of black foam and 1 piece of white foam removed from the left leg. Orders below followed for wound care today in clinic: Remove dressings. Clean wound with 0.9 % [...] y connector to connect wounds both wounds 2 pieces of black foam placed in the left groin wound. 1 piece of white foam and 2 pieces of black foam placed In the left leg wound. Plan of Care: 3 visits a week. 2 nursing visits and 1 provider visit for dressing changes. Follow up provider visit in 1 week Pt tolerated wound care well. Policy procedures followed for wound care performed in clinic. Instructed pt on wound care. All wound care instructions along with wrap-up education printed and handed to patient at end of visit. documented in this encounter Plan of Treatment Upcoming Encounters Date Type Department Care Team (Late st Contact Info) Description 11/29/2024 4:00 PM EDT Clinical Support [facility] [address] [place] [phone] 12/02/2024 2:15 PM EDT Clinical Support [facility] Care [place] [address] [place] [address] 12/04/2024 3:10 PM EDT Office Visit [facility] 1 [place] [address] Jerry Monroe Jr., MD [address] [place] [address] 12/06/2024 4:15 PM EDT Clinical Support [facility] 1 [place] [address] 12/09/2024 3:30 PM EDT Clinical Support [facility] 1 [place] [address] 12/11/2024 2:40 PM EDT Office Visit [facility] 1 [place] [address] Jerry Monroe Jr., MD [address] [place] [address] 12/13/2024 3:30 PM EDT Clinical Support [facility] 1 [place] [address] 12/16/2024 3:30 PM EDT Clinical Support [facility] 1 [place] [address] 12/18/2024 3:00 PM EDT Office Visit [facility] 1 [place] [address] Jerry Monroe Jr., MD [address] [place] [address] 12/20/2024 3:30 PM EDT Clinical Support [facility] [place] [address] [place] [address] documented as of this encounter Procedures Procedure Name Priority Date/Time Associated Diagnosis Comments CT DEBRIDEMENT MUSCLE &/FASCIA EA ADDL 20 SQ CM Routine 11/27/2024 2:20 PM EDT 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) Localized tissue (HCC) Other specified local infections of the skin and subcutaneous tissue CT DEBRIDEMENT MUSCLE &/FASCIA EA ADDL 20 SQ CM Routine 11/27/2024 2:20 PM EDT 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) Localized tissue (HCC) Other specified local infections of the skin and subcutaneous tissue CT DEBRIDEMENT MUSCLE &/FASCIA 1ST 20 SQ CM/< Routine 11/27/2024 2:20 PM EDT 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) Localized tissue (HCC) Other specified local infections of the skin and subcutaneous tissue CT DEBRIDEMENT MUSCLE &/FASCIA EA ADDL 20 SQ CM Routine 11/27/2024 2:20 PM EDT 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) Localized tissue (HCC) Other specified local infections of the skin and subcutaneous tissue CT DEBRIDEMENT MUSCLE &/FASCIA EA ADDL 20 SQ CM Routine 11/27/2024 2:20 PM EDT 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) Localized tissue (HCC) Other specified local infections of the skin and subcutaneous tissue CT DEBRIDEMENT MUSCLE &/FASCIA 1ST 20 SQ CM/< Routine 11/27/2024 2:20 PM EDT 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 written Consent given by: patient Risks discussed? procedural risks discussed Immediately prior to the procedure a time out was called and the performing provider verified the correct patient, procedure, equipment, therapeutic support staff, and site/side marked as required. Debridement Details Performed by: physician Debridement type: surgical Level of debridement: muscle Pain control: lidocaine 2% Pain control administration type: topical Pre-debridement measurements Length (cm): 7 Width (cm): 6.5 Depth (cm): 4.5 Surface Area (cm^2): 45.5 Post-debridement measurements Length (cm): 7.1 Width (cm): 6.6 Depth (cm): 4.6 Percent debrided: 100% Surface Area (cm^2): 46.86 Area Debrided (cm^2): 46.86 Volume (cm^3): 215.56 Tissue and other material debrided: adipose, dermis, epidermis, fascia, hypergranulation, muscle and subcutaneous tissue Devitalized tissue debrided: biofilm, fibrin and slough Instrument(s) utilized: curette, scissors and forceps Bleeding: small Hemostasis obtained with: pressure Procedural pain (0-10): 2 Post-procedural pain: 1 Response to treatment: procedure was tolerated well Jerry Monroe Jr., MD PROCEDURE/MINOR SURGICAL ORDERABLES Final Result * CT DEBRIDEMENT MUSCLE &/FASCIA 1ST 20 SQ CM/<, CT DEBRIDEMENT MUSCLE &/FASCIA EA ADDL 20SQ CM, CT DEBRIDEMENT MUSCLE &/FASCIA EA ADDL 20 SQ CM (11/27/2024 2:20 PM EDT) Jerry Littlejohn Jr., MD - 11/27/2024 2:20 PM EDT Jerry Monroe Jr., MD 11/27/2024 7:08 PM Debridement Wound 11/18/24 Leg upper Left;Medial Performed by: Jerry Monroe Jr., MD Authorized by: Jerry Monroe Jr., MD Consent Consent obtained? written Consent given by: patient Risks discussed? procedural risks discussed Immediately prior to the procedure a time out was called and the performing provider verified the correct patient, procedure, equipment, therapeutic support staff, and site/side marked as required. Debridement Details Performed by: physician Debridement type: surgical Level of debridement: muscle Pain control: lidocaine 2% Pain control administration type: topical Pre-debridement measurements Length (cm): 5.5 Width (cm): 1.2 Depth (cm): 5.3 Surface Area (cm^2): 6.6 Post-debridement measurements Length (cm): 5.6 Width (cm): 1.3 Depth (cm): 5.4 Percent debrided: 100% Surface Area (cm^2): 7.28 Area Debrided (cm^2): 7.28 Volume (cm^3): 39.31 Tissue and other material debrided: adipose, dermis, epidermis, fascia, hypergranulation, muscle and subcutaneous tissue Devitalized tissue debrided: biofilm, fibrin and slough Instrument(s) utilized: curette, forceps and scissors Bleeding: small Hemostasis obtained with: pressure Procedural pain (0-10): 2 Post-procedural pain: 1 Response to treatment: procedure was tolerated well [...]
--- OUTSIDE RECORDS SUMMARY | 2024-11-28 08:22 | XMS_ITS | Encounter Summary ---
Author Organization [facility] Address [address] [place] [address] Care Team Providers Care Senior Cost Estimator Name Role Phone Asad Victor MD Primary Care Provider + [phone] Encounter Details Date Type Department Care Team [...] drink first t dino in the morning (EYE-LASER MACHINE OPERATOR) to steady your nerves or [...] Office Visit [facility] [address] [place] [address] Oscar Appiah MD [address] [facility] [address] [place] [address] documented as of this encounter Goals Goal [...] of this encounter Care Teams Senior Cost Estimator Relationship Specialty Start Date End Date Asad Victor MD [address] [place] [address] PCP - General 10/07/22 documented as of this encounter
--- OUTSIDE RECORDS SUMMARY | 2024-11-28 08:23 | XMS_ITS | Encounter Summary ---
Author Organization [employer] ([place], [place], [place], [place]) Address [address] [place] [address] Care Team Providers Care Recycler Forklift Driver Truck Driver Name Role Phone Unavailable Primary Care Provider Unavailabl e Encounter Details Date Type Department Care Team (Latest Contact Info) Description 11/27/2024 Travel Social History Tobacco Use Types Packs/Day [...] Description 11/29/2024 4:00 PM EDT Clinical Support [facility] [address] [address] 12/02/2024 2:15 PM EDT Clinical Support [facility] [address] [address] 12/04/2024 3:10 PM EDT Office Visit [address] [address] Jerry Monroe Jr., MD [address] [place] [address] 12/06/2024 4:15 PM EDT Clinical Support [facility] [address] [address] 12/09/2024 3:30 PM EDT Clinical Support [facility] [address] [address] 12/11/2024 2:40 PM EDT Office Visit [facility] 1 [place] [address] Jerry Monroe Jr., MD [address] [place] [address] 12/13/2024 3:30 PM EDT Clinical Support [facility] 1 [place] [address] 12/16/2024 3:30 PM EDT Clinical Support [facility] 1 [place] [address] 12/18/2024 3:00 PM EDT Office Visit [facility] 1 [place] [address] Jerry Monroe Jr., MD [address] [place] [address] 12/20/2024 3:30 PM EDT Clinical Support [facility] 1 [place] [address] documented as of this encounter Visit Diagnoses Not on filedocumented in this encounter
--- OUTSIDE RECORDS SUMMARY | 2024-11-28 08:23 | XMS_ITS | Encounter Summary ---
Author Organization [facility] Address [address] [id number] Care Team Providers Care Chair Car Attendant Name Role Phone Asad Victor MD Primary Care Provider + [phone] Reason for Visit * Reason Onset Date Comments [facility] Clinical Concern/Question 11/15/2024 Encounter Details Date Type Department Care Team (Late st Contact Info) Description 11/15/2024 Telephone [facility] [address] [facility] [address] [place] [address] Nathaly Nowak MD [address] [facility] [address] [place] [address] [facility] Clinical Concern/Question Social History [...] any time in the past 12 m [facility], were you homeless or living in a [...] drink first t dino in the morning (EYE-POURER BUGGY LADLE) to steady your nerves or to get [...] with info. Thank you Best contact number: [phone] (mobile) Optimal time of day to reach caller: ANYTIME Additional comments/information from caller: None Note: Please do not reply to this message. Follow-up communication and further actions as a result of this message need to be communicated with the patient directly, if the patient is not active onMyChart. If the patient is active on MyChart, they will receive notification of the communication/outcome via [employer]. documented in this encounter Plan of Treatment Upcoming Encounters Date Type Department Care Team (Late st Contact Info) Description 11/29/2024 2:30 PM EDT Office Visit [address] [address] Oscar Appiah MD [address] [place] [phone] documented as of this encounter Goals [...] as of this encounter Care Teams Chair Car Attendant Relationship Specialty Start Date End Date Asad Victor MD [address] [facility] [place] [address] PCP - General 10/07/22 documented as of this encounter
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
--- OUTSIDE RECORDS SUMMARY | 2024-11-28 08:24 | XMS_ITS | Encounter Summary ---
Author Organization [facility] Address [address] [place] [address] Care Team Providers Care Counseling Center Manager Name Role Phone Asad Victor MD Primary Care Provider + [phone] Encounter Details Date Type Department Care Team [...] drink first t dino in the morning (EYE-BULB FILLER) to steady your nerves or to [...] Description 11/29/2024 2:30 PM EDT Office Visit [facility] [address] [place] [address] Oscar Appiah MD [address] [facility] [address] [place] [address] documented as of this encounter Goals Goal [...] documented as of this encounter Care Teams Counseling Center Manager Relationship Specialty Start Date End Date Asad Victor MD [address] [place] [address] PCP - General 10/07/22 documented as of this encounter
--- OUTSIDE RECORDS SUMMARY | 2024-11-28 08:25 | XMS_ITS | Encounter Summary ---
Author Organization Healthcare Address [address] [id number] Care Team Providers Care Junior Systems Analyst Name Role Phone Asad Victor MD Primary Care Provider + [phone] Encounter Details Date Type Department Care Team (Late st Contact Info) Description 10/22/2024 Telephone Vascular Surgery [address] [place] [address] Alison Beltrán, AIR EXPORT COORDINATOR, DNP [address] [facility] [address] [place] [address] Social History Tobacco Use Types Packs/Day Years [...] drink first t dino in the morning (EYE-SUPERINTENDENT SANITATION) to steady your nerves or to get [...] Notes * Telephone Encounter - Alison Beltrán, AIR EXPORT COORDINATOR, DNP - 10/22/2024 11:39 AM EDT Returned patient call. Patient s/p left common/superficial/profunda femoral thromboendarterectomy with bovine patch repair and left external iliac artery/VIDEO PLAYER MECHANIC stent with Dr Gautam on 10/17/24. Patient [...] Description 11/29/2024 2:30 PM EDT Office Visit [address] [address] Oscar Appiah MD [address] [facility] [address] [place] [address] documented as of this encounter Goals Goal Patient Goal Type Associated Problems Recent Progress Patient-Stated? Author Autogenera louise Goal Care Plan Autogenerated Problem No Ekta rAnett documented as of this encounter Visit Diagnoses Not on filedocumented in this encounter Additional Health Concerns Active Problems Noted Date Diagnosed Date Autogenerated Problem 09/23/2024 Assessment Noted Time A Body Mass Index follow-up plan has been documented for the patient 10/19/2024 11:46 AM EDT documented as of this encounter Care Teams Junior Systems Analyst Relationship Specialty Start Date End Date Asad Victor MD [address] [place] [address] PCP - General 10/07/22 documented as of this encounter
--- OUTSIDE RECORDS SUMMARY | 2024-11-28 08:25 | XMS_ITS | Clinical Summary ---
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); Localized tissue (HCC); Other specified local infections of the skin and subcutaneous tissue; Diabetes mellitus with skin ulcer (HCC) 11/27/2024 Travel 11/22/2024 4:15 PM EDT Clinical Support [facility] [address] [phone] Jerry Monroe Jr., MD 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) 11/20/2024 2:15 PM EDT Clinical Support [facility] [place] [address] [place] [address] Jerry Monroe Jr., MD 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) 11/20/2024 Travel 11/18/2024 1:10 PM EDT Office Visit [facility] [place] [address] [place] [address] Jerry Monroe Jr., MD Non-pressure chronic ulcer [...] Description 11/29/2024 4:00 PM EDT Clinical Support [address] [address] 12/02/2024 2:15 PM EDT Clinical Support [address] [address] 12/04/2024 3:10 PM EDT Office Visit [address] [address] Jerry Monroe Jr., MD [address] [place] [address] 12/06/2024 4:15 PM EDT Clinical Support [address] [address] 12/09/2024 3:30 PM EDT Clinical Support [address] [address] 12/11/2024 2:40 PM EDT Office Visit [address] [address] Jerry Monroe Jr., MD [address] [place] [address] 12/13/2024 3:30 PM EDT Clinical Support [facility] [address] [place] [phone] 12/16/2024 3:30 PM EDT Clinical Support [facility] [address] [place] [address] 12/18/2024 3:00 PM EDT Office Visit [facility] 1 [place] [address] Jerry Monroe Jr., MD [address] [place] [address] 12/20/2024 3:30 PM EDT Clinical Support [facility] [address] [place] [address] Health Maintenance Due Date Last [...] 02/06/2021 Tobacco Cessation Counseling and Screening (12+) 11/27/2025 11/27/2024 Procedures Procedure Name Priority Date/Time Associated Diagnosis Comments [place] DEBRIDEMENT MUSCLE &/FASCIA EA ADDL 20 SQ CM Routine 11/27/2024 2:20 PM EDT 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) Localized tissue (HCC) Other specified local infections of the skin and subcutaneous tissue TX DEBRIDEMENT MUSCLE &/FASCIA EA ADDL 20 SQ CM Routine 11/27/2024 2:20 PM EDT 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) Localized tissue (HCC) Other specified local infections of the skin and subcutaneous tissue TX DEBRIDEMENT MUSCLE &/FASCIA 1ST 20 SQ CM/< Routine 11/27/2024 2:20 PM EDT 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) Localized tissue (HCC) Other specified local infections of the skin and subcutaneous tissue TX DEBRIDEMENT MUSCLE &/FASCIA EA ADDL 20 SQ CM Routine 11/27/2024 2:20 PM EDT 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) Localized tissue (HCC) Other specified local infections of the skin and subcutaneous tissue TX DEBRIDEMENT MUSCLE &/FASCIA EA ADDL 20 SQ CM Routine 11/27/2024 2:20 PM EDT 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) Localized tissue (HCC) Other specified local infections of the skin and subcutaneous tissue TX DEBRIDEMENT MUSCLE &/FASCIA 1ST 20 SQ CM/< Routine 11/27/2024 2:20 PM EDT 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) Localized tissue (HCC) Other specified local infections of the skin and subcutaneous tissue WOUND TREATMENT Routine 11/22/2024 5:14 PM EDT 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) TX DEBRIDEMENT MUSCLE &/FASCIA EA ADDL 20 SQ CM Routine 11/18/2024 1:10 PM EDT 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) Localized tissue (HCC) Other specified local infections of the skin and subcutaneous tissue TX DEBRIDEMENT MUSCLE &/FASCIA EA ADDL 20 SQ CM Routine 11/18/2024 1:10 PM EDT 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) Localized tissue (HCC) Other specified local infections of the skin and subcutaneous tissue TX DEBRIDEMENT MUSCLE &/FASCIA 1ST 20 SQ CM/< Routine 11/18/2024 1:10 PM EDT 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) Localized tissue (HCC) Other specified local infections of the skin and subcutaneous tissue TX DEBRIDEMENT MUSCLE &/FASCIA EA ADDL 20 SQ CM Routine 11/18/2024 1:10 PM EDT 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) Localized tissue (HCC) Other specified local infections of the skin and subcutaneous tissue TX DEBRIDEMENT MUSCLE &/FASCIA EA ADDL 20 SQ CM Routine 11/18/2024 1:10 PM EDT 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) Localized tissue (HCC) Other specified local infections of the skin and subcutaneous tissue TX DEBRIDEMENT MUSCLE &/FASCIA 1ST 20 SQ CM/< Routine 11/18/2024 1:10 PM EDT 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 [...] MD PROCEDURE/MINOR SURGICAL ORDERABLES Final Result * TX DEBRIDEMENT MUSCLE &/FASCIA 1ST 20 SQ CM/<, TX DEBRIDEMENT MUSCLE &/FASCIA EA ADDL 20SQ CM, TX DEBRIDEMENT MUSCLE &/FASCIA EA ADDL 20 SQ [...] provider verified the correct patient, procedure, equipment, marketing support specialist, and site/side marked as required. [...] MD PROCEDURE/MINOR SURGICAL ORDERABLES Final Result * Wound Treatment (11/22/2024 5:14 PM EDT) Jerry Monroe Jr., MD NURSING PATHWAYS ORDERABL ES Final Result * TX DEBRIDEMENT MUSCLE &/FASCIA 1ST 20 SQ CM/<, TX DEBRIDEMENT MUSCLE &/FASCIA EA ADDL 20SQ CM, TX DEBRIDEMENT MUSCLE &/FASCIA EA ADDL 20 SQ [...] provider verified the correct patient, procedure, equipment, marketing support specialist, and site/side marked as required. [...] MD PROCEDURE/MINOR SURGICAL ORDERABLES Final Result * TX DEBRIDEMENT MUSCLE &/FASCIA 1ST 20 SQ CM/<, TX DEBRIDEMENT MUSCLE &/FASCIA EA ADDL 20SQ CM, TX DEBRIDEMENT MUSCLE &/FASCIA EA ADDL 20 SQ [...] provider verified the correct patient, procedure, equipment, marketing support specialist, and site/side marked as required. [...] Final Result from Last 3 Months Insurance [facility] ADV DUAL COMPLETE MEDICAID OF [place]
--- OUTSIDE RECORDS SUMMARY | 2024-11-28 08:25 | XMS_ITS | Encounter Summary ---
Author Organization Healthcare Address [address] [place] [address] Care Team Providers Care Teller Head Name Role Phone Asad Victor MD Primary Care Provider + [phone] Encounter Details Date Type Department Care Team (Late st Contact Info) Description 11/27/2024 Orders Only [address] [address] Vaishali Kraus MD [address] [place] [address] [address] [place] [address] Therapeutic drug monitoring (Primary Dx) Social History Tobacco Use Types Packs/Day Years [...] first t dino in the morning (EYE-INSPECTOR FLOOR SUB ASSEMBLY) to steady your nerves or to get [...] Description 11/29/2024 2:30 PM EDT Office Visit [facility] [address] [place] [address] Oscar Appiah MD [address] [facility] [address] [place] [address] Scheduled Orders Name Type Priority Associated Diagnoses Orde r Schedule CBC and differential Lab Routine Therapeutic drug monitoring Every Monday or Monday and PRN for 10 Occurrences starting 11/27/2024 until 01/27/2025 C-reactive protein Lab Routine Therapeutic drug monitoring Every Monday or Monday and PRN for 10 Occurrences starting 11/27/2024 until 01/27/2025 Urea Nitrogen, Plasma Lab Routine Therapeutic drug monitoring Every Monday or Monday and PRN for 10 Occurrences starting 11/27/2024 until 01/27/2025 Creatinine, plasma Lab Routine Therapeutic drug monitoring Every Monday or Monday and PRN for 10 Occurrences starting 11/27/2024 until 01/27/2025 documented as of this encounter Goals Goal Patient Goal Type Associated Problems Recent Progress Patient-Stated? Author Autogenera louise Goal Care Plan Autogenerated Problem No Ekta Arnett documented as of this encounter Visit Diagnoses Diagnosis Therapeutic drug monitoring- Primary Encounter for therapeutic drug monitoring documented in this encounter Additional Health Concerns Active Problems Noted Date Diagnosed Date Autogenerated Problem 09/23/2024 Assessment Noted Time A Body Mass Index follow-up plan has been documented for the patient 11/15/2024 8:19 AM EDT documented as of this encounter Care Teams Teller Head Relationship Specialty Start Date End Date Asad Victor MD [address] [place] [address] PCP - General 10/07/22 documented as of this encounter
--- OUTSIDE RECORDS SUMMARY | 2024-11-28 08:25 | XMS_ITS | Encounter Summary ---
Author Organization [facility] Address [address] [place] [address] Care Team Providers Care Deputy Chief Executive Name Role Phone Asad Victor MD Primary Care Provider + [phone] Encounter Details Date Type Department Care Team [...] drink first t dino in the morning (EYE-CUSTOMER EXPERIENCE CONSULTANT) to steady your nerves or to [...] Description 11/29/2024 2:30 PM EDT Office Visit [facility] [address] [place] [address] Oscar Appiah MD [address] [address] documented as of this encounter Goals Goal Patient Goal Type Associated Problems Recent Progress Patient-Stated? Author Autogenera louise Goal Care Plan Autogenerated Problem No JosebjEkta augustine documented as of this encounter Visit Diagnoses Not on filedocumented in this encounter Additional Health Concerns Active Problems Noted Date Diagnosed Date Autogenerated Problem 09/23/2024 Assessment Noted Time A Body Mass Index follow-up plan has been documented for the patient 10/19/2024 11:46 AM EDT documented as of this encounter Care Teams Deputy Chief Executive Relationship Specialty Start Date End Date Asad Victor MD [address] [place] [address] PCP - General 10/07/22 documented as of this encounter
--- OUTSIDE RECORDS SUMMARY | 2024-11-28 08:25 | XMS_ITS | Encounter Summary ---
Author Organization Healthcare Address [address] [place] [address] Care Team Providers Care Supervisor Cell Maintenance Name Role Phone Asad Victor MD Primary Care Provider + [phone] Encounter Details Date Type Department Care Team (Late st Contact Info) Description 10/17/2024 Orders Only External Location [address] [place] [address] Provider, External Social History Tobacco Use Types [...] any time in the past [address] [place], were you homeless or living [...] drink first t dino in the morning (EYE-COMMUNICATIONS DIRECTOR) to steady your nerves or to get rid of a hangover? 0 10/18/2021 CAGE Questionnaire Score 0 022 Utilities Answer Date Recorded In the past 12 months has th e [employer], gas, oil, or water [employer] threatened to shut off services in your [...] Description 11/29/2024 2:30 PM EDT Office Visit [facility] [address] [place] [address] Oscar Appiah MD [address] [facility] [address] [place] [address] documented as of this [...] as of this encounter Care Teams Supervisor Cell Maintenance Relationship Specialty Start Date End Date Asad Victor MD [address] [place] [address] PCP - General 10/07/22 documented as of this encounter
--- OUTSIDE RECORDS SUMMARY | 2024-11-28 08:25 | XMS_ITS | Referral Summary ---
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); Localized tissue (HCC); Other specified local infections of the skin and subcutaneous tissue; Diabetes mellitus with skin ulcer (HCC) 11/22/2024 4:15 PM EDT Clinical Support [facility] [address] [place] [phone] Jerry Monroe Jr., MD 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) 11/20/2024 Travel 11/20/2024 2:15 PM EDT Clinical Support [facility] [address] [place] [phone] Jerry Monroe Jr., MD 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) 11/18/2024 Travel 11/18/2024 1:10 PM EDT Office Visit [facility] [address] [phone] Jerry Monroe Jr., MD Non-pressure chronic ulcer [...] Description 11/29/2024 4:00 PM EDT Clinical Support [address] [address] 12/02/2024 2:15 PM EDT Clinical Support [address] [address] 12/04/2024 3:10 PM EDT Office Visit [address] [address] Jerry Monroe Jr., MD [address] [place] [address] 12/06/2024 4:15 PM EDT Clinical Support [address] [address] 12/09/2024 3:30 PM EDT Clinical Support [address] [address] 12/11/2024 2:40 PM EDT Office Visit [address] [address] Jerry Monroe Jr., MD [address] [place] [address] 12/13/2024 3:30 PM EDT Clinical Support [facility] [address] [place] [address] 12/16/2024 3:30 PM EDT Clinical Support [facility] [address] [place] [address] 12/18/2024 3:00 PM EDT Office Visit 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) Localized tissue (HCC) Other specified local infections of the skin and subcutaneous tissue LA DEBRIDEMENT MUSCLE &/FASCIA EA ADDL 20 SQ CM Routine 11/27/2024 2:20 PM EDT 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) Localized tissue (HCC) Other specified local infections of the skin and subcutaneous tissue LA DEBRIDEMENT MUSCLE &/FASCIA 1ST 20 SQ CM/< Routine 11/27/2024 2:20 PM EDT 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) Localized tissue (HCC) Other specified local infections of the skin and subcutaneous tissue LA DEBRIDEMENT MUSCLE &/FASCIA EA ADDL 20 SQ CM Routine 11/27/2024 2:20 PM EDT 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) Localized tissue (HCC) Other specified local infections of the skin and subcutaneous tissue LA DEBRIDEMENT MUSCLE &/FASCIA EA ADDL 20 SQ CM Routine 11/27/2024 2:20 PM EDT 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) Localized tissue (HCC) Other specified local infections of the skin and subcutaneous tissue LA DEBRIDEMENT MUSCLE &/FASCIA 1ST 20 SQ CM/< Routine 11/27/2024 2:20 PM EDT 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) Localized tissue (HCC) Other specified local infections of the skin and subcutaneous tissue WOUND TREATMENT Routine 11/22/2024 5:14 PM EDT 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) LA DEBRIDEMENT MUSCLE &/FASCIA EA ADDL 20 SQ CM Routine 11/18/2024 1:10 PM EDT 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) Localized tissue (HCC) Other specified local infections of the skin and subcutaneous tissue LA DEBRIDEMENT MUSCLE &/FASCIA EA ADDL 20 SQ CM Routine 11/18/2024 1:10 PM EDT 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) Localized tissue (HCC) Other specified local infections of the skin and subcutaneous tissue LA DEBRIDEMENT MUSCLE &/FASCIA 1ST 20 SQ CM/< Routine 11/18/2024 1:10 PM EDT 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) Localized tissue (HCC) Other specified local infections of the skin and subcutaneous tissue LA DEBRIDEMENT MUSCLE &/FASCIA EA ADDL 20 SQ CM Routine 11/18/2024 1:10 PM EDT 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) Localized tissue (HCC) Other specified local infections of the skin and subcutaneous tissue LA DEBRIDEMENT MUSCLE &/FASCIA EA ADDL 20 SQ CM Routine 11/18/2024 1:10 PM EDT 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) Localized tissue (HCC) Other specified local infections of the skin and subcutaneous tissue LA DEBRIDEMENT MUSCLE &/FASCIA 1ST 20 SQ CM/< Routine 11/18/2024 1:10 PM EDT 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 Debridement Details [...] MD PROCEDURE/MINOR SURGICAL ORDERABLES Final Result * LA DEBRIDEMENT MUSCLE &/FASCIA 1ST 20 SQ CM/<, LA DEBRIDEMENT MUSCLE &/FASCIA EA ADDL 20SQ CM, LA DEBRIDEMENT MUSCLE &/FASCIA EA ADDL 20 SQ CM (11/27/2024 2:20 PM EDT) Narrative Jerry Monroe Jr., MD - 11/27/2024 2:20 PM EDT [...] provider verified the correct patient, procedure, equipment, computer support specialist instructor, and site/side marked as required. Debridement Details [...] NURSING PATHWAYS ORDERABL ES Final Result * LA DEBRIDEMENT MUSCLE &/FASCIA 1ST 20 SQ CM/<, LA DEBRIDEMENT MUSCLE &/FASCIA EA ADDL 20SQ CM, LA DEBRIDEMENT MUSCLE &/FASCIA EA ADDL 20 SQ [...] provider verified the correct patient, procedure, equipment, computer support specialist instructor, and site/side marked as required. Debridement Details [...] MD PROCEDURE/MINOR SURGICAL ORDERABLES Final Result * LA DEBRIDEMENT MUSCLE &/FASCIA 1ST 20 SQ CM/<, LA DEBRIDEMENT MUSCLE &/FASCIA EA ADDL 20SQ CM, LA DEBRIDEMENT MUSCLE &/FASCIA EA ADDL 20 SQ [...] provider verified the correct patient, procedure, equipment, computer support specialist instructor, and site/side marked as required. Debridement Details [...] Final Result from Last 3 Months Insurance [facility] ADV DUAL COMPLETE MEDICAID OF [place]
[2024-11-28 08:26] VITALS: BMI 30.1
--- OUTSIDE RECORDS SUMMARY | 2024-11-28 08:26 | XMS_ITS | Encounter Summary ---
Author Organization [employer] ([place], [place], [place], [place]) Address [address] [place] [address] Care Team Providers Care Submarine Element Coordinator Name Role Phone Unavailable Primary Care Provider [...] Description 11/29/2024 4:00 PM EDT Clinical Support [facility] [address] [address] 12/02/2024 2:15 PM EDT Clinical Support [facility] [address] [address] 12/04/2024 3:10 PM EDT Office Visit [address] [address] Jerry Monroe Jr., MD [address] [place] [address] 12/06/2024 4:15 PM EDT Clinical Support [facility] [address] [address] 12/09/2024 3:30 PM EDT Clinical Support [facility] [address] [address] 12/11/2024 2:40 PM EDT Office Visit [facility] 1 [place] [address] Jerry Monroe Jr., MD [address] [place] [address] 12/13/2024 3:30 PM EDT Clinical Support [facility] 1 [place] [address] 12/16/2024 3:30 PM EDT Clinical Support [facility] 1 [place] [address] 12/18/2024 3:00 PM EDT Office Visit [facility] 1 [place] [address] Jerry Monroe Jr., MD [address] [place] [address] 12/20/2024 3:30 PM EDT Clinical Support [facility] 1 [place] [address] documented as of this encounter Visit Diagnoses Not on filedocumented in this encounter
--- OUTSIDE RECORDS SUMMARY | 2024-11-28 08:27 | XMS_ITS | Encounter Summary ---
Author Organization [employer] ([place], [place], [place], [place]) Address [address] [place] [address] Care Team Providers Care Brick Tosser Name Role Phone Unavailable Primary Care Provider [...] Description 11/29/2024 4:00 PM EDT Clinical Support [facility] [address] [address] 12/02/2024 2:15 PM EDT Clinical Support [facility] [address] [address] 12/04/2024 3:10 PM EDT Office Visit [address] [address] Jerry Monroe Jr., MD [address] [place] [address] 12/06/2024 4:15 PM EDT Clinical Support [facility] [address] [address] 12/09/2024 3:30 PM EDT Clinical Support [facility] [address] [address] 12/11/2024 2:40 PM EDT Office Visit [facility] 1 [place] [address] Jerry Monroe Jr., MD [address] [place] [address] 12/13/2024 3:30 PM EDT Clinical Support [facility] 1 [place] [address] 12/16/2024 3:30 PM EDT Clinical Support [facility] 1 [place] [address] 12/18/2024 3:00 PM EDT Office Visit [facility] 1 [place] [address] Jerry Monroe Jr., MD [address] [place] [address] 12/20/2024 3:30 PM EDT Clinical Support [facility] 1 [place] [address] documented as of this encounter Visit Diagnoses Not on filedocumented in this encounter
--- OUTSIDE RECORDS SUMMARY | 2024-11-28 08:27 | XMS_ITS | Encounter Summary ---
Author Organization Healthcare Address [address] [place] [address] Care Team Providers Care Business Intelligence Manager Name Role Phone Asad Victor MD Primary Care Provider + [phone] Encounter Details Date Type Department Care Team (Late st Contact Info) Description 11/15/2024 Clinical Support [facility] [id number] [place] [address] Charly Orlando, PharmD [address] [place] [address] [address] [place] [address] Social History Tobacco Use Types [...] drink first t dino in the morning (EYE-PRIMER INSPECTOR) to steady your nerves or to get rid of a hangover? 0 10/18/2021 CAGE Questionnaire Score 0 022 Utilities Answer Date Recorded In the past 12 months has th e [employer], gas, oil, or water company threatened to [...] Office Visit [facility] [address] [place] [address] Oscar Appiah MD [address] [facility] [address] [place] [address] documented as of this encounter [...] documented as of this encounter Care Teams Business Intelligence Manager Relationship Specialty Start Date End Date Asad Victor MD [address] [place] [address] PCP - General 10/07/22 documented as of this encounter
--- OUTSIDE RECORDS SUMMARY | 2024-11-28 08:27 | XMS_ITS | Encounter Summary ---
Author Organization [facility] Address [address] [place] [address] Care Team Providers Care Rail Car Loader Name Role Phone Asad Victor MD Primary Care Provider + [phone] Encounter Details Date Type Department Care Team [...] drink first t dino in the morning (EYE-AGENCY MANAGER) to steady your nerves or to [...] 1 Month) No 025 2:00 PM EDT [place], Brigitte E, RN 2. Non-Specific Active Suici marcelle Thoughts (Past 1 Month) No 11/06/2024 2:00 PM EDT Brigitte Castellon RN 6. Suicidal Behavior (Lifetime) No 2:00 PM EDT Brigitte Castellon RN documented as of this encounter Plan of Treatment Upcoming Encounters Date Type Department Care Team (Late st Contact Info) Description 11/29/2024 2:30 PM EDT Office Visit [facility] [address] [place] [address] Oscar Appiah MD [address] [facility] [address] [place] [address] documented as of this encounter [...] as of this encounter Care Teams Rail Car Loader Relationship Specialty Start Date End Date Asad Victor MD [address] [place] [address] PCP - General 10/07/22 documented as of this encounter
--- OUTSIDE RECORDS SUMMARY | 2024-11-28 08:27 | XMS_ITS | Encounter Summary ---
Author Organization Healthcare Address [address] [place] [address] Care Team Providers Care Customer Supply Coordinator Name Role Phone Asad Victor MD Primary Care Provider + [phone] Encounter Details Date Type Department Care Team (Late st Contact Info) Description 11/05/2024 Orders Only External Location [address] [place] [address] Provider, External Social History Tobacco Use Types [...] drink first t dino in the morning (EYE-PROPERTY SUPERVISOR) to steady your nerves or to get rid of a hangover? 0 10/18/2021 CAGE Questionnaire Score 0 022 Utilities Answer Date Recorded In the past 12 months has th e [employer], gas, oil, or water company threatened to [...] EDT Office Visit [facility] [address] [place] [address] Oscar Appiah MD [address] [facility] [address] [place] [address] documented as of this encounter [...] as of this encounter Care Teams Customer Supply Coordinator Relationship Specialty Start Date End Date Asad Victor MD [address] [place] [address] PCP - General 10/07/22 documented as of this encounter
[2024-11-28] MEDS: SODIUM CHLORIDE 0.9% IV (08:29)
[2024-11-28] MEDS: MICAFUNGIN SODIUM IV (08:29)
[2024-11-28 08:30] VITALS: BP 129/47; PULSE 71; RESP 18; TEMP 36.8; O2SAT 99
[2024-11-28 08:54] LABS: Blood Urea Nitrogen 27 mg/dl (9-20); Creatinine Clearance Estimated 94 mL/min (50-200); Creatinine,Serum 0.80 mg/dl (0.66-1.25); Estimated Glomerular Filt Rate 97 ml/min (>60); GFR (African American) 117 ML/MIN (>60)
[2024-11-28 09:00] VITALS: BP 131/56; PULSE 70
[2024-11-28 09:11] LABS: C-Reactive Protein 4.7 mg/L (0-4)
[2024-11-28] MEDS: ERTAPENEM SODIUM 1 GM in 0.9 % SODIUM CHLORIDE 50 ML IV (09:31)
[2024-11-28 09:36] VITALS: BP 133/51; PULSE 72
[2024-11-28 09:40] VITALS: BP 129/71; PULSE 67
== END 2024-11-28 10:20 | disposition home or self-care (01) ==
LOC: INF 08:10
PROVIDERS: PCP Family Medicine
DX: T14.8XXA Other injury of unspecified body region, initial encounter (principal); L08.9 Local infection of the skin and subcutaneous tissue, unspecified; X58.XXXA Exposure to other specified factors, initial encounter; Y93.9 Activity, unspecified; Y92.9 Unspecified place or not applicable
CPT/HCPCS: 36592; 82565; 84520; 86140; 96365; 96366; 96367; J1335; J2248

== ENCOUNTER 2024-11-29 08:07 | Outpatient (CLI) | payer MEDICARE, OTHER, SELFPAY ==
--- OUTSIDE RECORDS SUMMARY | 2024-10-11 10:15 | XMS_ITS | Encounter Summary ---
Author Organization [facility] Address [address] [place] [address] Care Team Providers Care Video Game Producer Name Role Phone Asad Victor MD Primary Care Provider + [phone] Encounter Details Date Type Department Care Team (Latest Contact Info) Description 10/11/2024 10:15 AM EDT Pre-Admission Testing [facility]op [facility] [address], [address] [place] [phone] Preop testing (Primary Dx) Anesthesia Record Procedure [...] Hand; Site Prep: Chlorhexidine ; Local Anesth: [place]; Technique: Anatomical landmarks; Inserted by: CHRISTIAN Acuna; [...] G; Orientation: Right; Location: Axillary; Inserted by: TABBER; Securement: Sutured; Patient Tolerance: Tolerated well; Removal [...] drink first t dino in the morning (EYE-COILER OPERATOR) to steady your nerves or to [...] note 09/25/24 (media) + CAD s/p multiple VT's and 3V CABG 02/2019, 2 stents prior to CABG Atrial Fibrillation with RVR s/p CABG + carotid artery disease s/p R CEA 2016 + 3rd degree AV block VISUAL BASIC .NET DEVELOPER-P placed 08/2023 for Wenkeback with 11 sec pause + HLD + HTN - controlled + PAD 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 S/P intravascular lithotripsy of left common and external iliac artery with 2 continuous balloon mounted bare metal stents 09/12/24 on Xarelto and ASA + WILHELM occ, low energy for > year - had work-up recently in [place] (will get records) + peripheral edema LLE [...] ENDARTERECTOMY N/A 2017 Endarterectomy Carotid Artery from [facility] CORONARY ANGIOPLASTY Left Coronary Angiography With Concomitant Left Heart Catheterization from [facility] CORONARY ARTERY BYPASS GRAFT N/A 2018 3V ELBOW SURGERY Right OTHER SURGICAL HISTORY N/A Reported Prior Surgical / Procedural History from [facility] [5] No Known Allergies [6] Current Outpatient [...] card, photo ID, along with power of county attorney, guardianship or advanced directives if applicable [...] Description 11/29/2024 2:30 PM EDT Office Visit [facility] [address] [facility] [place] [address] Oscar Appiah MD [address] [facility] [address] [place] [address] 12/19/2024 7:[address] [facility]ascular Lab [address] 5th [address] [place] [address] 12/19/2024 8:[address] [facility] Lab [address] 5th [address] [place] [address] 12/19/2024 9:00 AM EDT Office Visit [facility] [address] [facility] 5th Floor [address] [place] [address] Nathaly Nowak MD [address] [place] [address] documented as of this encounter Goals Goal [...] Modality Other Narrative 10/17/2024 9:50 AM EDT [facility]: Pre-operative CIED Report Assessment and Sara-Procedural Reommendations: Name: Mono Bobby Date: 10/17/2024 : 1960 Age: 64 y.o. Patient has a Light Technician: Berger VISUAL BASIC .NET DEVELOPER-PM Remaining battery longevity adequate. Lead integrity test [...] recommendations. Supporting reports can be found in [employer] media file. us Emelina DOSHI CV IMPLANTABLE [...] documented as of this encounter Care Teams Video Game Producer Relationship Specialty Start Date End Date Asad Victor MD [address] [place] [address] PCP - General 10/07/22 documented as of this encounter
--- OUTSIDE RECORDS SUMMARY | 2024-10-16 14:45 | XMS_ITS | Encounter Summary ---
Author Organization Healthcare Address [address] [place] [address] Care Team Providers Care Drill Press Set Up Operator Name Role Phone Asad Victor MD Primary Care Provider + [phone] Encounter Details Date Type Department Care Team (Latest Contact Info) Description 10/16/2024 2:45 PM EDT - 10/16/2024 11:59 PM EDT Hospital Encounter Cardiac Imaging [address] [place] [address] Discharge Disposition: Home or Self Care Social [...] drink first t dino in the morning (EYE-FISHER PURSE SEINE) to steady your nerves or to get [...] Description 11/29/2024 2:30 PM EDT Office Visit [facility] [address] [place] [address] Oscar Appiah MD [facility] 100 [place] [address] 12/19/2024 7:30 AM EDT Appointment [facility] [address] [place] [address] 12/19/2024 8:00 AM EDT Appointment [facility] [address] [place] [address] 12/19/2024 9:00 AM EDT Office Visit [facility] [address] [place] [address] Nathaly Nowak MD [address] [facility] [address] [place] [address] documented as of this encounter Goals Goal [...] Modality Other Narrative 10/17/2024 9:50 AM EDT [facility]: Pre-operative CIED Report Assessment and Sara-Procedural Reommendations: Name: Mono Bobby Date: 10/17/2024 : 1960 Age: 64 y.o. Patient has a Threader Operator: Berger INSOLE STIFFENER-PM Remaining battery longevity adequate. Lead integrity test [...] recommendations. Supporting reports can be found in [employer] media file. 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
--- OUTSIDE RECORDS SUMMARY | 2024-10-17 06:21 | XMS_ITS | Encounter Summary ---
Author Organization [facility] Address [address] [id number] Care Team Providers Care Railroad Surveyor Name Role Phone Asad Victor MD Primary Care Provider [phone] Reason for Referral * Imaging (Routine) - Authorized Specialty Diagnoses / Procedures Referred By Susan t Referred To Contact Cardiology Diagnoses Critical limb ischemia of left lower extremity Pseudoaneurysm of left femoral artery (CMS/HCC) Procedures VAS US Arterial Duplex Lower Extremity Unilateral Left Terrell Gautam MD [address] [address] Phone: tel: fax: Referral ID Status Reason Start Date Expiration Date Visits Requested Visits Authorized [id number] Authorized Perform Procedure 10/19/2024 04/20/2026 1 1 * Imaging (Routine) - Authorized Specialty Diagnoses / Procedures Referred By Contac t Referred To Contact Cardiology Diagnoses Critical limb ischemia of left lower extremity Pseudoaneurysm of left femoral artery (CMS/HCC) Procedures VAS Ankle Brachial Index - Segmental Terrell Gautam MD [id number] [place] [address] Phone: tel: fax: Referral ID Status Reason Start Date Expiration Date Visits Requested Visits Authorized [id number] Authorized Perform Procedure 10/19/2024 04/20/2026 1 1 * Consultation (Routine) - Authorized Specialty Diagnoses / Procedures Referred By Contact Referred To Contact Vascular Surgery / [facility] Diagnoses Critical limb ischemia of left lower extremity Pseudoaneurysm of left femoral artery (CMS/HCC) Terrell Gautam MD [address] [place] [address] Phone: tel:[phone] fax:[phone] [facility] [address] [place] [address] 5th Floor [address] [place] [address] Phone: tel: fax: Referral ID Status Reason Start Date Expiration Date Visits Requested Visits Authorized [id number] Authorized Specialty Services Required 10/19/2024 04/20/2026 [address] Gautam, with SIL, arterial duplex Reason for Visit * Auth/Cert (Routine) Specialty Diagnoses / Procedures Referred By Susan t Referred To Contact Diagnoses Critical limb ischemia of left lower extremity Critical limb ischemia of left lower extremity [I70.222] Procedures ME VEIN BYPASS GRAFT,FEM-POP CREATION, BYPASS, ARTERIAL, FEMORAL TO POPLITEAL Terrell Gautam MD [address] [place] [phone] Phone: tel: fax: [facility] A OPERATING ROOM [address] [place] [address] Phone: tel: Referral ID Status Reason Start Date Expiration Date Visits Re quested Visits Authorized [id number] 1 1 Encounter Details Date Type Department Care Team (Latest Contact Info) Description 10/17/2024 6:21 AM EDT - 10/19/2024 12:39 PM EDT Hospital Encounter [facility] H Inpatient [address] [place] [id number] Terrell Gautam MD [address] [place] [phone] Pseudoaneurysm of left femoral artery (CMS/HCC) [...] any time in the past 12 m [facility], were you homeless or living in a halfway (including now)? 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 0 10/18/2021 CAGE Questionnaire Score 0 022 Utilities Answer Date Recorded In the past 12 months has th [employer], gas, oil, or water Project Talents threatened to shut off services in your [...] provided Taken 10/17/20242107 by Jourdan Grimes II public health clinical nurse specialist Review/Management: medications reviewed Problem: Skin Injury Risk [...] of Daily Living 10/19/2024 1145 by Keyla Cohw Outcome: Met 10/19/2024 1048 by Keyla Chow Outcome: Ongoing, Progressing Intervention: Promote Activity and Functional [place] Flowsheets (Taken 10/19/2024 1048) Self-Care Promotion: BADL personal objects within reach meal set-up provided * Yuni Ramires - Keyla Chow - 10/19/2024 11:45 AM EDT Images from the original note were not included. [id number] After Peripheral Artery Bypass Surgery: In the [...] home. Last Reviewed Date: 2023 00:00:00 ?? [id number] [employer]. All rights reserved. This information is not intended as a substitute for professional medical care. Always follow your healthcare professional's instructions. * Progress Notes - Emelina Friend - 10/19/2024 11:44 AM EDT Case Management Adult Progress Note Bev Bobby 64 y.o. male CSN: [id number] Admission: 10/17/2024 6:21 AM Primary Problem: Critical [...] if any other needs arise. Emelina Friend TOSSER, NATIONAL SALES ASSOCIATE Social Work Case Management * Yuni OviJOSE MANUEL Chow Keyla - 10/19/2024 11:44 AM EDT Images from the original note were not included. [id number] Peripheral Artery Disease (PAD) Peripheral artery disease [...] cause. Last Reviewed Date: 2024 00:00:00 ?? [id number] [employer]. All rights reserved. This information is not intended as a substitute for professional medical care. Always follow your healthcare professional's instructions. * Yuni DiorNAVYA - Keyla Chow - 10/19/2024 11:44 AM EDT Images from the original note were not included. [id number] Leg Artery Emergencies: Critical Limb Ischemia (CLI) [...] appointments. Last Reviewed Date: 2023 00:00:00 ?? [id number] [employer]. All rights reserved. This information is not intended as a substitute for professional medical care. Always follow your healthcare professional's instructions. * Discharge Summary - Dandy Baltazar MD - 10/19/2024 11:31 AM EDT Hospitalization Admit Date/Time: 10/17/2024 6:21 AM Admitting Attending: Terrell Gautam Discharge Date: 10/19/24 Discharge Attending Physician: Nirmal Cueto MD PCP name and Address: Asad Victor MD (Inactive) [address] [place] [address] / [facility] [address] Referring provider name and address: Timothy Marques PA [address] [place] [address] Chief Concern, Brief History of Present Illness, and Hospital Course Bev Bobby is an 64 y.o. 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 He [...] Medications These medications were sent to [facility] - [place], [place] - [address], [facility] [address] acetaminophen 500 MG tablet clopidogrel 75 MG [...] of water. 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 He [...] reach meal set-up provided Taken 10/17/20242107 by Jourdna Grimes II, public health clinical nurse specialist Review/Management: medications reviewed Problem: Skin Injury Risk [...] Ongoing, Progressing Intervention: Promote Activity and Functional [place] Flowsheets (Taken 10/19/2024 1048) Self-Care Promotion: BADL [...] evaluation. PARTICIPANTS IN CARE Visitors Present No Armature Coil Winder (if applicable) PRESENTATION Oxygen Oxygen Therapy: None [...] Level of Mobility Ambulatory- household only Mobility [place] Independent gait with device (rollator) History of [...] numbness in rodney) BED MOBILITY Level of [place] Physical/Non- physical Assist Adaptive Equipment Utilized Rolling/ Turning Scooting/ Bridging Modified independence (anteriorly to EOB) Bed rails Supine to Sit Modified [place] (to the right) (HOB flat) Bed rails Sit to Supine Interventions HOB flat to simulate home environment TRANSFERS Level of [place] Physical/Non- physical Assist Adaptive Equipment Utilized Sit [...] stable surfaces during transitions. AMBULATION Level of [place] Distance Adaptive Equipment Utilized Ambulation Standby assist, [...] Posture: Forward head, Rounded shoulders Level of [place] Balance Support Interventions Static Sit Independent Right [...] 3-5 steps with a railing?: A little [facility] 6-Clicks Mobility Assessment Total : 22 ASSESSMENT [...] evaluation/session. Participants in Care Family/Caregiver Present: No Armature Coil Winder: Not Applicable Presentation Oxygen Therapy: None (Room [...] Level of Mobility: Ambulatory- household only Mobility [place]: Independent gait with device (rollator) History of [...] Mobility Bed Mobility Exam: Scooting/Bridging Level of [place]: Modified independence (anteriorly to EOB) Assistive Device: Bed rails Bed Mobility Exam: Supine to Sit Level of [place]: Modified [place] (to the right) Physical/Nonphysical Assist: (HOB flat) Assistive Device: Bed rails Transfers Transfer Exam: Sit to stand Level of [place]: Stand-by assist Physical/Nonphysical Assist: Supervision, Verbal Cues, Minimal cues Assistive Device: Walker, rolling Transfer Exam: Stand to Sit Level of [place]: Stand-by assist Physical/Nonphysical Assist: Supervision, Verbal Cues, [...] regarding toileting at this time. Standardized Assessments [facility] 6-Click Daily Activities Help from Other: Don/Doff Regular Lower Body Clothings: None Help From Other: Bathing: Little Help From Other: Toileting: None Help From Other: Don/Doff Upper Body Clothings: None Help From Other: Grooming: None Help From Other: Eating Meals: None [facility] 6 Click - Daily Activities Score: 23/24 [facility] Scoring Interpretation: Scores greater than 20.5 suggest [...] Note Bev Bobby 64 y.o. male CSN: [id number] Admission: 10/17/2024 6:21 AM Primary Problem: Critical limb ischemia of left lower extremity Bioinformatics Developer reviewed chart and spoke with patient to complete this Initial Case Management Assessment. PCP: Asad Victor MD (Inactive) - Dr. Paolmo Preferred pharmacy is [facility] Emergency Contact: Extended Emergency Contact Information Primary Emergency Contact: Patti Hill Relation: Sister Armature Coil Winder needed? No Insurance: Primary Visit Coverage Payer Plan Sponsor Code Group Number Group Name [facility] MEDICARE [facility] MEDICARE REPLACEMENT [id number] Primary Visit Coverage Subscriber Subscriber ID Subscriber Name Subscriber N Subscriber Address [id number] BEV BOBBY [id number] [place] [address] Secondary Visit Coverage Payer Plan Sponsor Code Group Number Group Name [facility] MEDICAID [facility] Secondary Visit Coverage Subscriber Subscriber ID Subscriber Name Subscriber N Subscriber Address [id number] BEV BOBBY [id number] [place] [address] Patient information: Primary Caregiver: Self Daily Living Activities: Functional Status: Independent Living Arrangements: Alone Type of Residence: Private residence, Single Level [address] [place] [address] Current DME: Equipment Currently Used at Home: walker, rollator Income Information: Income Source: Retired Income/Expense Information: Income meets expenses Current Resources Utilized: Food Reese Housing Circumstances-Z Codes: Housing Circumstances (select all [...] Dialysis Services: None. Living Will/Advance Directive/Power of Rehabilitation Center Manager /Guardian: Denied. Additional Comments: Patient is not medically ready for discharge. SW will continue to follow. Mariia Macedo NATIONAL SALES ASSOCIATE * Care Plan - Emilia Alonso [...] from the original note were not included. [facility] Department of Surgery Division of Vascular [...] Agree with above assessment and evaluation from resident/EXECUTIVE ADMINISTRATOR. * Op Note - Terrell Gautam MD - 10/17/2024 8:52 AM EDT Operative Note Date: 10/17/24 Location: [facility] Name: Bev Bobby, : 1960, Diagnoses: Pre-op Diagnosis Critical limb ischemia of left lower extremity Common femoral artery pseudoaneurysm Post-op Diagnosis Critical limb ischemia of left lower extremity Common femoral artery pseudoaneurysm Procedure(s): Left common/superficial/profunda femoral thromboendarterectomy with bovine patch repair Left external iliac artery/WORK MANAGER stent Attending Surgeon(s): * Terrell Gautam - Primary Red Lead Burner(s): * Luna Beckett MD - Resident - [...] Necessity Reasons Recent surgery contiguous with urinary tract/[employer] ROBOTICIST/colorectal 10/17/24 190 Output (mL) 50 mL 10/18/24 08 Implants Type Name Action Serial No. VASCUGUARD 8 X 8 - [id number] Implanted STENT ENDOPROSTHESIS VIABAHN 9FR [id number] - [id number] Implanted [id number] Specimen: Specimens ID Source Frozen? 1 Other [...] and distal control. We then proceeded with nvezq-pux-bzpc exposure of the popliteal artery. A medial [...] balloon dilated thestent with a 9 mm [place]. We closed the arteriotomy with a single [...] 10/17/2024 8:52 AM EDT Date: 10/17/24 Location: [facility] Name: Bev Perez Kanu, : 1960, Diagnoses: Pre-op Diagnosis Critical limb ischemia of left lower extremity Common femoral artery pseudoaneurysm Post-op Diagnosis Critical limb ischemia of left lower extremity Common femoral artery pseudoaneurysm Procedure(s): Left common/superficial/profunda femoral thromboendarterectomy with bovine patch repair Left external iliac artery/WORK MANAGER stent Attending Surgeon(s): * Terrell Gautam - Primary Red Lead Burner(s): * Luna Beckett MD - Resident - Assisting * Dandy Baltazar MD - Fellow Anesthesia: General ASA: III Blood Administration: Blood Product Administration History None Estimated Blood Loss: 300 mL Drains: Urethral Catheter Temperature probe 16 Fr. (Active) Implants Type Name Action Serial No. VASCUGUARD 8 X 8 - [id number] Implanted STENT ENDOPROSTHESIS VIABAHN 9FR [id number] - [id number] Implanted [id number] Specimen: Specimens ID Source Frozen? 1 Other [...] issues. 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 He previouslyunderwent thrombin injection. He reports pain in his calves. He presents today for scheduled left lower extremity femoral to ypcbz-hqm-nmmt popliteal bypass. Planned likely use PTFE. He [...] 16. Results Review {Vanishing Link Review Results :[id number] I have reviewed the latest lab and imaging results. Assessment & Plan Critical limb ischemia of left lower extremity Proceed with scheduled surgery left lower extremity femoral to [id number] popliteal artery bypass graft. Extensive discussion had [...] Description 11/29/2024 2:30 PM EDT Office Visit [facility] [address] [place] [address] Oscar Appiah MD [address] [facility] [address] [place] [address] 12/19/2024 7:30 AM EDT Appointment [facility] [address] [facility] 5th Floor [address] [place] [address] 12/19/2024 8:00 AM EDT Appointment [facility] [address] [place] [address] 12/19/2024 9:00 AM EDT Office Visit [facility] [address] [place] [address] Nathaly Nowak MD [address] [place] [address] Pending Results Name Type Priority [...] PREPARE RBC STAT 10/17/2024 8:06 AM EDT ME VEIN BYPASS GRAFT,FEM-POP 10/17/2024 7:38 AM EDT [...] Comment 10/19/2024 11:42 AM EDT HEALTHCARE LAB Dance Hall Host/Hostess ID KamranJob 10/20/19 11:42 AM EDT [facility] Device ID [id number] 10/19/2024 11:42 AM EDT [facility] Specimen Type POC Capillary 10/19/2024 11:42 AM EDT [facility] Blood Capillary blood specimen / Unknown 10/19/2024 11:40 AM EDT 10/19/2024 11:42 AM EDT us Terrell Gautam MD LAB POINT OF CARE TE ST DOCKED DEVICE UNSOLICITED RESULTS Final Result Performing Organization Address City/State/[facility] Co de Phone Number HEALTHCARE LAB [address] [place] [address] * (ABNORMAL) Protime-INR (10/19/2024 8:25 AM EDT) Prothrombin Time 17.5(H) 12.0 - 14.3 sec LAB COAGULATION METHOD 10/19/2024 9:25 AM EDT [facility] INR 1.4(H) 0.9 - 1.1 LAB COAGULATION METHOD 10/19/2024 9:25 AM EDT [facility] Blood Venous blood specimen / Unknown Venipuncture / Unknown 10/19/2024 8:25 AM EDT 10/19/2024 8:43 AM EDT Narrative [facility] - 10/19/2024 9:25 AM EDT OPTIMAL INR RANGES FOR PATIENT ON ORAL ANTICOAGULANT THERAPY Prevention of venous thromboembolism INR 2.0 to 3.0 In patients with heart disease: Atrial fibrillation INR 2.0 to 3.0 Valvular heart disease INR 2.0 to 3.0 Tissue heart valves INR 2.0 to 3.0 Mechanical prosthetic valves INR 2.5 to 3.5 Prevention of recurrent MO INR 2.5 to 3.5 Nirmal Cueto MD LAB BLOOD ORDERABLES Final Result Performing Organization Address City/[facility]/ZIP Co de Phone Number [facility] [address] [place] [address] * (ABNORMAL) Phosphorus (10/19/2024 8:25 AM EDT) Phosphorus, Plasma 2.2(L) 2.5 - 4.5 mg/dL 10/19/2024 9:12 AM EDT [facility] Blood Venous blood specimen / Unknown Venipuncture / Unknown 10/19/2024 8:25 AM EDT 10/19/2024 8:43 AM EDT Nirmal Cueto MD LAB BLOOD ORDERABLES Final Result Performing Organization Address City/[facility]/ZIP Co de Phone Number [facility] [address] [place] [address] * Magnesium (10/19/2024 8:25 AM EDT) Magnesium, Plasma 2.1 1.9 - 2.4 mg/dL 10/19/2024 9:12 AM EDT [facility] Blood Venous blood specimen / Unknown Venipuncture / Unknown 10/19/2024 8:25 AM EDT 10/19/2024 8:43 AM EDT Nirmal Cueto MD LAB BLOOD ORDERABLES Final Result Performing Organization Address City/[facility]/ZIP Co de Phone Number [facility] [address] [place] [address] * (ABNORMAL) Basic metabolic panel (10/19/2024 8:25 AM EDT) Glucose, Plasma 191(H) 74 - 99 mg/dL 10/19/2024 9:12 AM EDT [facility] BUN, Plasma 18 8 - 23 mg/dL 10/19/2024 9:12 AM EDT [facility] Creatinine, Plasma 0.76 0.70 - 1.20 mg/dL 10/19/2024 9:12 AM EDT [facility] BUN/Creatinine Ratio 24 10/19/2024 9:12 AM EDT [facility] Sodium, Plasma 135(L) 136 - 145 mmol/L 10/19/2024 9:12 AM EDT [facility] Potassium, Plasma 4.1 3.6 - 4.9 mmol/L 10/19/2024 9:12 AM EDT [facility] Chloride, Plasma 104 97 - 107 mmol/L 10/19/2024 9:12 AM EDT [facility] CO2, Plasma 22 22 - 29 mmol/L 10/19/2024 9:12 AM EDT [facility] Anion Gap 9 6 - 16 mmol/L 10/19/2024 9:12 AM EDT [facility] Total Calcium, Plasma 8.4(L) 8.9 - 10.2 mg/dL 10/19/2024 9:12 AM EDT [facility] eGFRcr 99.7 mL/min/1.7 3m*2 10/19/2024 9:12 AM EDT [facility] Comment:Reported eGFRcr in m L/min/1.73m2 is based the CKD-EPI 2020 equation that does not use a race coefficient. Blood Venous blood specimen / Unknown Venipuncture / Unknown 10/19/2024 8:25 AM EDT 10/19/2024 8:43 AM EDT us Nirmal Cueto MD LAB BLOOD ORDERABLES Final Result [facility] [address] [place] [address] * (ABNORMAL) CBC W/O Differential (10/19/2024 8:25 AM EDT) WBC Count 14.10(H) 3.70 - 10.30 10*3/uL LAB HEMATOLOGY METHOD 10/19/2024 8:52 AM EDT [facility] RBC Count 2.61(L) 4.60 - 6.10 10*6/uL LAB HEMATOLOGY METHOD 10/19/2024 8:52 AM EDT [facility] HGB 8.0(L) 13.7 - 17.5 g/dL LAB HEMATOLOGY METHOD 10/19/2024 8:52 AM EDT [facility] HCT 24.3(L) 40.0 - 51.0 % LAB HEMATOLOGY METHOD 10/19/2024 8:52 AM EDT [facility] Platelet Count 318 155 - 369 10*3/uL LAB HEMATOLOGY METHOD 10/19/2024 8:52 AM EDT [facility] MCV 93 79 - 98 fL LAB HEMATOLOGY METHOD 10/19/2024 8:52 AM EDT [facility] MCH 30.7 26.0 - 32.0 pg LAB HEMATOLOGY METHOD 10/19/2024 8:52 AM EDT [facility] MCHC 32.9 30.7 - 35.5 g/dL LAB HEMATOLOGY METHOD 10/19/2024 8:52 AM EDT [facility] RDW 13.4 11.5 - 14.5 % LAB HEMATOLOGY METHOD 10/19/2024 8:52 AM EDT [facility] MPV 9.6 8.8 - 12.5 fL LAB HEMATOLOGY METHOD 10/19/2024 8:52 AM EDT [facility] nRBC 0.0 <=0.0 per 100 WBCs LAB HEMATOLOGY METHOD 10/19/2024 8:52 AM EDT [facility] Blood Venous blood specimen / Unknown Venipuncture / Unknown 10/19/2024 8:25 AM EDT 10/19/2024 8:44 AM EDT us Nirmal Cueto MD LAB BLOOD ORDERABLES Final Result [facility] [address] [place] [address] * (ABNORMAL) POCT glucose meter (10/19/2024 7:35 AM EDT) Pathologist [facility] POCT Glucose 187(H) 74 - 99 [...] Comment 10/19/2024 7:37 AM EDT HEALTHCARE LAB Dance Hall Host/Hostess ID Job Andrew 10/20/19 7:37 AM EDT HEALTHCARE LAB Device ID [id number] 10/19/2024 7:37 AM EDT [facility]ALTH[facility]ARE LAB Specimen Type POC Capillary 10/19/2024 7:37 AM EDT [facility] Blood Capillary blood specimen / Unknown 10/19/2024 7:35 AM EDT 10/19/2024 7:37 AM EDT us Terrell Gautam MD LAB POINT OF CARE TE ST DOCKED DEVICE UNSOLICITED RESULTS Final Result Performing Organization Address City/State/[facility] Co de Phone Number [facility] [address] [place] [address] * (ABNORMAL) POCT glucose meter (10/18/2024 7:22 PM EDT) [facility] POCT Glucose 178(H) 74 - 99 mg/dL [...] 10/18/2024 7:24 PM EDT [facility] Dance Hall Host/Hostess ID Mahesh Aldana 10/18/2024 7:24 PM EDT [facility] Device ID [id number] 10/18/2024 7:24 PM EDT HEALTHCARE LAB Specimen Type POC Capillary 10/18/2024 7:24 PM EDT [facility] Blood Capillary blood specimen / Unknown 10/18/2024 7:22 PM EDT 10/18/2024 7:24 PM EDT Terrell Gautam MD LAB POINT OF CARE TE ST DOCKED DEVICE UNSOLICITED RESULTS Final Result Performing Organization Address City/[facility]/ZIP Co de Phone Number [facility]ALTH[facility]ARE [facility] [address] [place] [address] * (ABNORMAL) POCT glucose meter (10/18/2024 6:07 [...] Comment 10/18/2024 6:09 PM EDT HEALTHCARE LAB Dance Hall Host/Hostess ID David Parks 10/18/2024 6:09 PM EDT [facility] Device ID [id number] 10/18/2024 6:09 PM EDT [facility] Specimen Type POC Capillary 10/18/2024 6:09 PM EDT [facility] Blood Capillary blood specimen / Unknown 10/18/2024 6:07 PM EDT 10/18/2024 6:09 PM EDT us Terrell Gautam MD LAB POINT OF CARE TE ST DOCKED DEVICE UNSOLICITED RESULTS Final Result [facility] [address] [place] [address] * (ABNORMAL) POCT glucose meter (10/18/2024 11:56 [...] Comment 10/21/2024 7:42 AM EDT HEALTHCARE LAB Dance Hall Host/Hostess ID Venessa Marcano 10/21/2024 7:42 AM EDT HEALTHCARE LAB Device ID [id number] 10/21/2024 7:42 AM EDT HEALTHCARE LAB Specimen Type POC Capillary 10/21/2024 7:42 AM EDT [facility]ALTH[facility]ARE LAB Blood Capillary blood specimen / Unknown 10/18/2024 11:56 AM EDT 10/21/2024 7:42 AM EDT us Terrell Gautam MD LAB POINT OF CARE TE ST DOCKED DEVICE UNSOLICITED RESULTS Final Result Performing Organization Address City/State/[facility] de Phone Number [facility]ARE [facility] [address] [place] [address] * (ABNORMAL) POCT glucose meter (10/18/2024 9:24 [...] Comment 10/21/2024 7:42 AM EDT HEALTHCARE LAB Dance Hall Host/Hostess ID Emilia Alonso 7:42 AM EDT HEALTHCARE LAB Device ID [id number] 10/21/2024 7:42 AM EDT HEALTHCARE LAB Specimen Type POC Venous 10/21/2024 7:42 AM EDT [facility] LAB Blood Venous blood specimen / Unknown 10/18/2024 9:24 AM EDT 10/21/2024 7:42 AM EDT us Terrell Gautam MD LAB POINT OF CARE TE ST DOCKED DEVICE UNSOLICITED RESULTS Final Result [facility] [address] [place] [address] * (ABNORMAL) POCT glucose meter (10/18/2024 7:36 AM EDT) [facility] POCT Glucose 215(H) 74 - 99 mg/dL [...] for testing. Comment 10/18/2024 7:38 AM EDT [facility] Dance Hall Host/Hostess ID Kizzy Godfrey 025 7:38 AM EDT HEALTHCARE LAB Device ID [id number] 10/18/2024 7:38 AM EDT [facility] [facility] Specimen Type POC Capillary 10/18/2024 7:38 AM EDT [facility] Blood Capillary blood specimen / Unknown 10/18/2024 7:36 AM EDT 10/18/2024 7:38 AM EDT Terrell Gautam MD LAB POINT OF CARE TE ST DOCKED DEVICE UNSOLICITED RESULTS Final Result [facility] [address] [place] [address] * (ABNORMAL) CBC (10/18/2024 2:09 AM EDT) [facility] WBC Count 16.71(H) 3.70 - 10.30 10*3/uL LAB HEMATOLOGY METHOD 10/18/2024 2:33 AM EDT [facility] RBC Count 2.78(L) 4.60 - 6.10 10*6/uL LAB HEMATOLOGY METHOD 10/18/2024 2:33 AM EDT [facility] HGB 8.5(L) 13.7 - 17.5 g/dL LAB HEMATOLOGY METHOD 10/18/2024 2:33 AM EDT [facility] HCT 25.7(L) 40.0 - 51.0 % LAB HEMATOLOGY METHOD 10/18/2024 2:33 AM EDT [facility] Platelet Count 324 155 - 369 10*3/uL LAB HEMATOLOGY METHOD 10/18/2024 2:33 AM EDT [facility] MCV 92 79 - 98 fL LAB HEMATOLOGY METHOD 10/18/2024 2:33 AM EDT [facility] MCH 30.6 26.0 - 32.0 pg LAB HEMATOLOGY METHOD 10/18/2024 2:33 AM EDT [facility] MCHC 33.1 30.7 - 35.5 g/dL LAB HEMATOLOGY METHOD 10/18/2024 2:33 AM EDT [facility] RDW 13.3 11.5 - 14.5 % LAB HEMATOLOGY METHOD 10/18/2024 2:33 AM EDT [facility] MPV 9.4 8.8 - 12.5 fL LAB HEMATOLOGY METHOD 10/18/2024 2:33 AM EDT [facility] nRBC 0.0 <=0.0 per 100 WBCs LAB HEMATOLOGY METHOD 10/18/2024 2:33 AM EDT [facility] Blood Venous blood specimen / Unknown Venipuncture / Unknown 10/18/2024 2:09 AM EDT 10/18/2024 2:25 AM EDT Nirmal Cueto MD LAB BLOOD ORDERABLES Final Result [facility] [address] [place] [address] * (ABNORMAL) Basic metabolic panel (10/18/2024 2:09 AM EDT) Pathologist [facility] Glucose, Plasma 206(H) 74 - 99 mg/dL 10/18/2024 2:53 AM EDT [facility] BUN, Plasma 24(H) 8 - 23 mg/dL 10/18/2024 2:53 AM EDT [facility] Creatinine, Plasma 1.17 0.70 - 1.20 mg/dL 10/18/2024 2:53 AM EDT [facility] BUN/Creatinine Ratio 21 10/18/2024 2:53 AM EDT [facility] Sodium, Plasma 136 136 - 145 mmol/L 10/18/2024 2:53 AM EDT [facility] Potassium, Plasma 4.8 3.6 - 4.9 mmol/L 10/18/2024 2:53 AM EDT [facility] Chloride, Plasma 104 97 - 107 mmol/L 10/18/2024 2:53 AM EDT [facility] CO2, Plasma 22 22 - 29 mmol/L 10/18/2024 2:53 AM EDT [facility] Anion Gap 10 6 - 16 mmol/L 10/18/2024 2:53 AM EDT [facility] Total Calcium, Plasma 8.5(L) 8.9 - 10.2 mg/dL 10/18/2024 2:53 AM EDT [facility] eGFRcr 69.2 mL/min/1.7 3m*2 10/18/2024 2:53 AM EDT [facility] Comment:Reported eGFRcr in m L/min/1.73m2 is based the CKD-EPI 2020 equation that does not use a race coefficient. Blood Venous blood specimen / Unknown Venipuncture / Unknown 10/18/2024 2:09 AM EDT 10/18/2024 2:25 AM EDT Nirmal Cueto MD LAB BLOOD ORDERABLES Final Result [facility] [address] [place] [address] * (ABNORMAL) Magnesium (10/18/2024 2:09 AM EDT) Magnesium, Plasma 1.8(L) 1.9 - 2.4 mg/dL 10/18/2024 2:53 AM EDT [facility] Blood Venous blood specimen / Unknown Venipuncture / Unknown 10/18/2024 2:09 AM EDT 10/18/2024 2:25 AM EDT Nirmal Cueto MD LAB BLOOD ORDERABLES Final Result [facility] [address] [place] [address] * Phosphorus (10/18/2024 2:09 AM EDT) Phosphorus, Plasma 3.7 2.5 - 4.5 mg/dL 10/18/2024 2:53 AM EDT [facility] Blood Venous blood specimen / Unknown Venipuncture / Unknown 10/18/2024 2:09 AM EDT 10/18/2024 2:25 AM EDT Nirmal Cueto MD LAB BLOOD ORDERABLES Final Result Performing Organization Address City/[facility]/ZIP Co de Phone Number [facility] [address] [place] [address] * (ABNORMAL) Protime-INR (10/18/2024 2:09 AM EDT) Prothrombin Time 14.5(H) 12.0 - 14.3 sec LAB COAGULATION METHOD 10/18/2024 2:53 AM EDT [facility] INR 1.1 0.9 - 1.1 LAB COAGULATION METHOD 10/18/2024 2:53 AM EDT [facility] Blood Venous blood specimen / Unknown Venipuncture / Unknown 10/18/2024 2:09 AM EDT 10/18/2024 2:25 AM EDT Narrative [facility] - 10/18/2024 2:53 AM EDT OPTIMAL INR RANGES FOR PATIENT ON ORAL ANTICOAGULANT THERAPY Prevention of venous thromboembolism INR 2.0 to 3.0 In patients with heart disease: Atrial fibrillation INR 2.0 to 3.0 Valvular heart disease INR 2.0 to 3.0 Tissue heart valves INR 2.0 to 3.0 Mechanical prosthetic valves INR 2.5 to 3.5 Prevention of recurrent MO INR 2.5 to 3.5 us Nirmal Cueto MD LAB BLOOD ORDERABLES Final Result Performing Organization Address City/[facility]/ZIP Co de Phone Number [facility] [address] [place] [address] * (ABNORMAL) POCT glucose meter (10/18/2024 2:08 AM EDT) [facility] POCT Glucose 202(H) 74 - 99 mg/dL [...] Comment 10/18/2024 2:10 AM EDT [facility] Dance Hall Host/Hostess ID Jourdan Grimes II 10/18/2024 2:10 AM EDT [facility] LAB Device ID [id number] 10/18/2024 2:10 AM EDT [facility] Specimen Type POC Capillary 10/18/2024 2:10 AM EDT [facility] Blood Capillary blood specimen / Unknown 10/18/2024 2:08 AM EDT 10/18/2024 2:10 AM EDT us Terrell Gautam MD LAB POINT OF CARE TE ST DOCKED DEVICE UNSOLICITED RESULTS Final Result Performing Organization Address City/State/[facility] Co de Phone Number [facility] [address] [place] [address] * (ABNORMAL) POCT glucose meter (10/17/2024 10:07 PM EDT) [facility] POCT Glucose 300(H) 74 - 99 mg/dL [...] Comment 10/17/2024 10:10 PM EDT [facility] Dance Hall Host/Hostess ID Jourdan Grimes II 10/17/2024 10:10 PM EDT [facility]ARE LAB Device ID [id number] 10/17/2024 10:10 PM EDT [facility] Specimen Type POC Capillary 10/17/2024 10:10 PM EDT [facility] Blood Capillary blood specimen / Unknown 10/17/2024 10:07 PM EDT 10/17/2024 10:10 PM EDT Terrell Gautam MD LAB POINT OF CARE TE ST DOCKED DEVICE UNSOLICITED RESULTS Final Result Performing Organization Address City/[facility] de Phone Number [facility] [address] [place] [address] * (ABNORMAL) POCT glucose meter (10/17/2024 8:07 [...] Comment 10/17/2024 8:10 PM EDT [facility] Dance Hall Host/Hostess ID Jourdan Grimes II 10/17/2024 8:10 PM EDT [facility] LAB Device ID [id number] 10/17/2024 8:10 PM EDT [facility] Specimen Type POC Capillary 10/17/2024 8:10 PM EDT [facility] Blood Capillary blood specimen / Unknown 10/17/2024 8:07 PM EDT 10/17/2024 8:10 PM EDT Terrell Gautam MD LAB POINT OF CARE TE ST DOCKED DEVICE UNSOLICITED RESULTS Final Result Performing Organization Address City/[facility]/ZIP Co de Phone Number [facility] [address] [place] [address] * (ABNORMAL) POCT glucose meter (10/17/2024 4:01 [...] Comment 10/17/2024 4:03 PM EDT [facility]ALTH[facility]ARE LAB Dance Hall Host/Hostess ID Keisha Waller 10/17/2024 4:03 PM EDT HE[facility]ARE LAB Device ID [id number] 10/17/2024 4:03 PM EDT [facility] LAB Specimen Type POC Capillary 10/17/2024 4:03 PM EDT [facility] Blood Capillary blood specimen / Unknown 10/17/2024 4:01 PM EDT 10/17/2024 4:03 PM EDT us Terrell Gautam MD LAB POINT OF CARE TE ST DOCKED DEVICE UNSOLICITED RESULTS Final Result Performing Organization Address City/State/[facility] Co de Phone Number [facility] [address] [place] [address] * (ABNORMAL) POCT glucose meter (10/17/2024 1:25 PM EDT) [facility] POCT Glucose 225(H) 74 - 99 mg/dL [...] 10/17/2024 1:27 PM EDT [facility] Dance Hall Host/Hostess ID Kizzy Godfrey 025 1:27 PM EDT [facility]ALTH[facility]ARE LAB Device ID [id number] 10/17/2024 1:27 PM EDT [facility]ARE LAB Specimen Type POC Capillary 10/17/2024 1:27 PM EDT [facility] Blood Capillary blood specimen / Unknown 10/17/2024 1:25 PM EDT 10/17/2024 1:27 PM EDT us Terrell Gautam MD LAB POINT OF CARE TE ST DOCKED DEVICE UNSOLICITED RESULTS Final Result Performing Organization Address City/[facility]/ZIP Co de Phone Number [facility] [address] [place] [address] * [place] Less than 1 Hour Intraoperative (10/17/2024 1:18 PM EDT) Narrative IMAGING - 10/17/2024 2:05 PM EDT Images were obtained for surgical purposes. See Terrell Gautam's surgical note in the patient's chart for the findings. Terrell Gautam MD IMG FLUOROSCOPY PROCEDURES Fi nal Result Performing Organization Address [facility] Co de Phone Number IMAGING * POCT ACT (10/17/2024 12:23 PM EDT) ACT+ (HIGH RANGE) 211 68 - 600 Seconds 10/29/2024 7:28 AM EDT [facility]ALTH[facility]ARE LAB Dance Hall Host/Hostess ID Donna Mcmillan 10/29/2024 7:28 AM EDT [facility] LAB ACT Device ID [id number] 10/29/2024 7:28 AM EDT [facility]ALTH[facility]ARE LAB Comment 10/29/2024 7:28 AM EDT [facility] Comment: ACT performed by [...] UNSOLICITED RESULTS Final Result Performing Organization Address [facility] Co de Phone Number [facility] [address] [place], [place] [id number] [place] [address] LAB [address] [place] [address] * (ABNORMAL) Blood gas, arterial (10/17/2024 11:48 AM EDT) pH, Arterial 7.34 7.31 - 7.42 LAB HEMATOLOGY METHOD 10/17/2024 11:54 AM EDT [facility] pCO2, Arterial 41 32 - 45 mmHg LAB HEMATOLOGY METHOD 10/17/2024 11:54 AM EDT [facility] pO2, Arterial 202 >80 mmHg LAB HEMATOLOGY METHOD 10/17/2024 11:54 AM EDT [facility] SO2, Measured, Arterial 100(H) 94 - 98 % LAB HEMATOLOGY METHOD 10/17/2024 11:54 AM EDT [facility] Base Excess, Arterial -3.2(L) -2.0 - 3.0 mmol/L LAB HEMATOLOGY METHOD 10/17/2024 11:54 AM EDT [facility] Bicarbonate, Calculated, Arterial 22 22 - 26 mmol/L LAB HEMATOLOGY METHOD 10/17/2024 11:54 AM EDT [facility] Hematocrit, Whole Blood 28.6(L) 40.0 - 51.0 % LAB HEMATOLOGY METHOD 10/17/2024 11:54 AM EDT [facility] Sodium, Whole Blood 137 136 - 145 mmol/L LAB HEMATOLOGY METHOD 10/17/2024 11:54 AM EDT [facility] Potassium, Whole Blood 4.5 3.6 - 4.9 mmol/L LAB HEMATOLOGY METHOD 10/17/2024 11:54 AM EDT [facility] Chloride, Whole Blood 112(H) 97 - 107 mmol/L LAB HEMATOLOGY METHOD 10/17/2024 11:54 AM EDT [facility] Glucose, Whole Blood 201(H) 74 - 99 mg/dL LAB HEMATOLOGY METHOD 10/17/2024 11:54 AM EDT [facility] Ionized Calcium, Whole Blood 4.8 4.6 - 5.1 mg/dL LAB HEMATOLOGY METHOD 10/17/2024 11:54 AM EDT [facility] Lactate, Arterial, Whole Blood 2.3(H) 0.5 - 1.6 mmol/L LAB HEMATOLOGY METHOD 10/17/2024 11:54 AM EDT [facility] Blood Arterial blood specimen / Unknown Arterial Puncture / Unknown 10/17/2024 11:48 AM EDT 10/17/2024 11:53 AM EDT us Jenna Lopez CRNA LAB BLOOD ORDERABLES Final Re sult [facility] [address] [place] [address] * POCT ACT (10/17/2024 11:41 AM EDT) ACT+ (HIGH RANGE) 175 68 - 600 Seconds 10/29/2024 7:28 AM EDT HEALTHCARE LAB Dance Hall Host/Hostess ID Oneyda Alicea 10/29/2024 7:28 AM EDT HEALTH[facility]ARE LAB ACT Device ID [id number] 10/29/2024 7:28 AM EDT HEALTH[facility]ARE LAB Comment 10/29/2024 7:28 AM EDT [facility] Comment: ACT performed by [...] ST DOCKED DEVICE UNSOLICITED RESULTS Final Result [facility] [address] LAB [address] [place] [address] * POCT ACT (10/17/2024 11:11 AM EDT) ACT+ (HIGH RANGE) 252 68 - 600 Seconds 10/29/2024 7:28 AM EDT HEALTHCARE LAB Dance Hall Host/Hostess ID Donna Mcmillan 10/29/2024 7:28 AM EDT [facility]ALTH[facility]ARE LAB ACT Device ID [id number] 10/29/2024 7:28 AM EDT HEALTH[facility]ARE LAB Comment 10/29/2024 7:28 AM EDT [facility] Comment: ACT performed by [...] EDT 10/29/2024 7:28 AM EDT us Terrell Gatuam MD LAB POINT OF CARE TE ST DOCKED DEVICE UNSOLICITED RESULTS Final Result [facility] [address] LAB [address] [place] [address] * (ABNORMAL) Blood gas, arterial (10/17/2024 10:46 AM EDT) pH, Arterial 7.35 7.31 - 7.42 LAB HEMATOLOGY METHOD 10/17/2024 10:56 AM EDT [facility] pCO2, Arterial 42 32 - 45 mmHg LAB HEMATOLOGY METHOD 10/17/2024 10:56 AM EDT [facility] pO2, Arterial 161 >80 mmHg LAB HEMATOLOGY METHOD 10/17/2024 10:56 AM EDT [facility] SO2, Measured, Arterial 100(H) 94 - 98 % LAB HEMATOLOGY METHOD 10/17/2024 10:56 AM EDT [facility] Base Excess, Arterial -2.2(L) -2.0 - 3.0 mmol/L LAB HEMATOLOGY METHOD 10/17/2024 10:56 AM EDT [facility] Bicarbonate, Calculated, Arterial 23 22 - 26 mmol/L LAB HEMATOLOGY METHOD 10/17/2024 10:56 AM EDT [facility] Hematocrit, Whole Blood 29.9(L) 40.0 - 51.0 % LAB HEMATOLOGY METHOD 10/17/2024 10:56 AM EDT [facility] Sodium, Whole Blood 138 136 - 145 mmol/L LAB HEMATOLOGY METHOD 10/17/2024 10:56 AM EDT [facility] Potassium, Whole Blood 4.0 3.6 - 4.9 mmol/L LAB HEMATOLOGY METHOD 10/17/2024 10:56 AM EDT [facility] Chloride, Whole Blood 110(H) 97 - 107 mmol/L LAB HEMATOLOGY METHOD 10/17/2024 10:56 AM EDT [facility] Glucose, Whole Blood 174(H) 74 - 99 mg/dL LAB HEMATOLOGY METHOD 10/17/2024 10:56 AM EDT [facility] Ionized Calcium, Whole Blood 5.1 4.6 - 5.1 mg/dL LAB HEMATOLOGY METHOD 10/17/2024 10:56 AM EDT [facility] Lactate, Arterial, Whole Blood 1.4 0.5 - 1.6 mmol/L LAB HEMATOLOGY METHOD 10/17/2024 10:56 AM EDT [facility] Blood Arterial blood specimen / Unknown Arterial Puncture / Unknown 10/17/2024 10:46 AM EDT 10/17/2024 10:54 AM EDT us Jenna Lopez CRNA LAB BLOOD ORDERABLES Final Re sult [facility] [address] [place] [address] * POCT ACT (10/17/2024 10:37 AM EDT) ACT+ (HIGH RANGE) 206 68 - 600 Seconds 10/29/2024 7:28 AM EDT [facility] Dance Hall Host/Hostess ID Donna Mcmillan 10/29/2024 7:28 AM EDT [facility] ACT Device ID [id number] 10/29/2024 7:28 AM EDT [facility] Comment 10/29/2024 7:28 AM EDT [facility] Comment: ACT performed by [...] ST DOCKED DEVICE UNSOLICITED RESULTS Final Result [facility] [address] LAB [address] [place] [address] * Surgical Pathology Exam (10/17/2024 10:27 AM EDT) Case Report Surgical Pathology Case: [id number] Authorizing Provider: Terrell Gautam MD Collected: 10/17/2024 1027 Ordering Location: [facility] A OPERATING ROOM Received: 10/17/2024 1325 Pathologist: Haydee Osborne MD Specimen: Other (specify site), left common femoral plaque 10/21/2024 10:16 AM EDT [facility] Final Diagnosis A. LEFT COMMON FEMORAL PLAQUE, EXCISION: - CALCIFIED PLAQUE 10/21/2024 10:16 AM EDT [facility] at 1016 EDT Clinical Information Critical limb ischemia of left lower extremity [I70.222] 10/21/2024 10:16 AM EDT [facility] Gross Description A. LEFT COMMON FEMORAL PLAQUE Received in formalin labeled l eft common femoral plaque , is one aggregate of red-gabriel hard portions of plaque measuring 3.7 x 2.5 x 0.9 cm. The specimen is serially sectioned and site safety representative sections are submitted in cassette A1. Cold Time: <1m Kenia Aceves 10/21/2024 10:16 AM EDT [facility] Note: A resident was involved in the service. I attest I examined the relevant preparations for the specimens and confirmed the diagnosis or interpretation. 10/21/2024 10:16 AM EDT [facility] Tissue Topography unknown / Unknown 10/17/2024 10:27 AM EDT 10/17/2024 1:25 PM EDT Comment:Pre-op diagnosis: Critical limb ischemia of left lower extremity [I70.222] us Terrell Gautam MD LAB PATHOLOGY ORDERABLES Gwen grimaldo Result [facility] [address] [place] [address] * POCT ACT (10/17/2024 10:03 AM EDT) ACT+ (HIGH RANGE) 244 68 - 600 Seconds 10/29/2024 7:28 AM EDT HEALTHCARE LAB Dance Hall Host/Hostess ID Donna Mcmillan Maya 10/29/2024 7:28 AM EDT HEALTHCARE LAB ACT Device ID [id number] 10/29/2024 7:28 AM EDT [facility] Comment 10/29/2024 7:28 AM EDT [facility] Comment: ACT performed by [...] ST DOCKED DEVICE UNSOLICITED RESULTS Final Result [facility] [address] [place] [address] * (ABNORMAL) Blood gas, arterial (10/17/2024 9:45 AM EDT) pH, Arterial 7.37 7.31 - 7.42 LAB HEMATOLOGY METHOD 10/17/2024 9:55 AM EDT [facility] pCO2, Arterial 43 32 - 45 mmHg LAB HEMATOLOGY METHOD 10/17/2024 9:55 AM EDT [facility] pO2, Arterial 177 >80 mmHg LAB HEMATOLOGY METHOD 10/17/2024 9:55 AM EDT [facility] SO2, Measured, Arterial 100(H) 94 - 98 % LAB HEMATOLOGY METHOD 10/17/2024 9:55 AM EDT [facility] Base Excess, Arterial -0.5 -2.0 - 3.0 mmol/L LAB HEMATOLOGY METHOD 10/17/2024 9:55 AM EDT [facility] Bicarbonate, Calculated, Arterial 25 22 - 26 mmol/L LAB HEMATOLOGY METHOD 10/17/2024 9:55 AM EDT [facility] Hematocrit, Whole Blood 30.0(L) 40.0 - 51.0 % LAB HEMATOLOGY METHOD 10/17/2024 9:55 AM EDT [facility] Sodium, Whole Blood 137 136 - 145 mmol/L LAB HEMATOLOGY METHOD 10/17/2024 9:55 AM EDT [facility] Potassium, Whole Blood 4.3 3.6 - 4.9 mmol/L LAB HEMATOLOGY METHOD 10/17/2024 9:55 AM EDT [facility] Chloride, Whole Blood 108(H) 97 - 107 mmol/L LAB HEMATOLOGY METHOD 10/17/2024 9:55 AM EDT [facility] Glucose, Whole Blood 191(H) 74 - 99 mg/dL LAB HEMATOLOGY METHOD 10/17/2024 9:55 AM EDT [facility] Ionized Calcium, Whole Blood 5.0 4.6 - 5.1 mg/dL LAB HEMATOLOGY METHOD 10/17/2024 9:55 AM EDT [facility] Lactate, Arterial, Whole Blood 1.3 0.5 - 1.6 mmol/L LAB HEMATOLOGY METHOD 10/17/2024 9:55 AM EDT [facility] Blood Arterial blood specimen / Unknown Arterial Line / Unknown 10/17/2024 9:45 AM EDT 10/17/2024 9:52 AM EDT Jenna Lopez CRNA LAB BLOOD ORDERABLES Final Re sult [facility] [address] [place] [address] * (ABNORMAL) Blood gas, arterial (10/17/2024 8:47 AM EDT) pH, Arterial 7.37 7.31 - 7.42 LAB HEMATOLOGY METHOD 10/17/2024 8:59 AM EDT [facility] pCO2, Arterial 43 32 - 45 mmHg LAB HEMATOLOGY METHOD 10/17/2024 8:59 AM EDT [facility] pO2, Arterial 205 >80 mmHg LAB HEMATOLOGY METHOD 10/17/2024 8:59 AM EDT [facility] SO2, Measured, Arterial 100(H) 94 - 98 % LAB HEMATOLOGY METHOD 10/17/2024 8:59 AM EDT [facility] Base Excess, Arterial -0.3 -2.0 - 3.0 mmol/L LAB HEMATOLOGY METHOD 10/17/2024 8:59 AM EDT [facility] Bicarbonate, Calculated, Arterial 25 22 - 26 mmol/L LAB HEMATOLOGY METHOD 10/17/2024 8:59 AM EDT [facility] Hematocrit, Whole Blood 31.3(L) 40.0 - 51.0 % LAB HEMATOLOGY METHOD 10/17/2024 8:59 AM EDT [facility] Sodium, Whole Blood 138 136 - 145 mmol/L LAB HEMATOLOGY METHOD 10/17/2024 8:59 AM EDT [facility] Potassium, Whole Blood 4.0 3.6 - 4.9 mmol/L LAB HEMATOLOGY METHOD 10/17/2024 8:59 AM EDT [facility] Chloride, Whole Blood 108(H) 97 - 107 mmol/L LAB HEMATOLOGY METHOD 10/17/2024 8:59 AM EDT [facility] Glucose, Whole Blood 162(H) 74 - 99 mg/dL LAB HEMATOLOGY METHOD 10/17/2024 8:59 AM EDT [facility] Ionized Calcium, Whole Blood 5.2(H) 4.6 - 5.1 mg/dL LAB HEMATOLOGY METHOD 10/17/2024 8:59 AM EDT [facility] Lactate, Arterial, Whole Blood 1.7(H) 0.5 - 1.6 mmol/L LAB HEMATOLOGY METHOD 10/17/2024 8:59 AM EDT [facility] Blood Arterial blood specimen / Unknown Arterial Puncture / Unknown 10/17/2024 8:47 AM EDT 10/17/2024 8:58 AM EDT us Jenna Lopez [facility] LAB BLOOD ORDERABLES Final Re sult [facility] [address] [place] [address] * POCT ACT (10/17/2024 8:46 AM EDT) ACT+ (HIGH RANGE) 101 68 - 600 Seconds 10/29/2024 7:28 AM EDT HEALTHCARE LAB Dance Hall Host/Hostess ID Donna Mcmillan Maya 10/29/2024 7:28 AM EDT HEALTHCARE LAB ACT Device ID [id number] 10/29/2024 7:28 AM EDT HEALTH[facility]ARE LAB Comment 10/29/2024 7:28 AM EDT [facility] Comment: ACT performed by [...] UNSOLICITED RESULTS Final Result Performing Organization Address [facility] [place]/[facility] Co de Phone Number HEALTHCARE LAB [address] LAB [address] [place] [address] * Type and Screen (10/17/2024 7:19 AM EDT) Pathologist [facility] ABO/Rh A Negative 10/17/2024 7:04 AM EDT BLOOD BANK Antibody Screen Negative 10/17/2024 7:04 AM EDT BLOOD BANK Specimen Expiration 10/20/2024 23:59 10/17/2024 7:04 AM EDT BLOOD BANK Blood Venous blood specimen / Unknown Venipuncture / Unknown 10/17/2024 7:19 AM EDT 10/17/2024 7:28 AM EDT us Maria Fernanda Mccallum MD LAB BLOOD BANK TEST ORDERAB LES Final Result Performing Organization Address [facility] [place]/[facility] de Phone Number BLOOD BANK [address] [place] [address] * (ABNORMAL) POCT glucose meter (10/17/2024 6:44 AM EDT) [facility] POCT Glucose 178(H) 74 - 99 mg/dL [...] 10/17/2024 6:49 AM EDT [facility] Dance Hall Host/Hostess ID Hunter Burroughs 10/18/19 6:49 AM EDT [facility] Device ID [id number] 10/17/2024 6:49 AM EDT HEALTHCARE LAB Specimen Type POC Capillary 10/17/2024 6:49 AM EDT HEALTHCARE LAB Blood Capillary blood specimen / Unknown 10/17/2024 6:44 AM EDT 10/17/2024 6:49 AM EDT Terrell Gautam MD LAB POINT OF CARE TE ST DOCKED DEVICE UNSOLICITED RESULTS Final Result [facility] [address] [place] [address] documented in this encounter Visit Diagnoses Diagnosis [...] Intravenous, Every 6 hours PRN, Starting on Yadiar 10/17/24 at 1308, Until 10/19/24 at 1439, [...] documented as of this encounter Care Teams 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
--- OUTSIDE RECORDS SUMMARY | 2024-10-17 07:51 | XMS_ITS | Encounter Summary ---
Author Organization [facility] Address [address] [id number] Care Team Providers Care Rn Field Case Manager Name Role Phone Asad Victor MD Primary Care Provider + [phone] Reason for Visit * Auth/Cert (Routine) Specialty Diagnoses / Procedures Referred By Contac t Referred To Contact Diagnoses Critical limb ischemia of left lower extremity Critical limb ischemia of left lower extremity [I70.222] Procedures CA VEIN BYPASS GRAFT,FEM-POP CREATION, BYPASS, ARTERIAL, FEMORAL TO POPLITEAL Terrell Gautam MD [address] [facility] [address] [place] [address] Phone: tel: fax: PAV A OPERATING ROOM [address] [place] [address] Phone: tel: Referral ID Status Reason Start Date Expiration Date Visits Re quested Visits Authorized [id number] 1 1 Encounter Details Date Type Department Care Team (Late st Contact Info) Description 10/17/2024 7:51 AM EDT Anesthesia Event [facility] A OPERATING ROOM [address] [place] [phone] Maria Fernanda Mccallum MD [address] [place] [address] Anesthesia Record Procedure Summary Procedure [...] Hand; Site Prep: Chlorhexidine ; Local Anesth: [place]; Technique: Anatomical landmarks; Inserted by: CHRISTIAN Acuna; [...] any time in the past 12 m [facility], were you homeless or living in [...] drink first t dino in the morning (EYE-HAMMER SETTER) to steady your nerves or to [...] * Anesthesia Postprocedure Evaluation - Jenna Lopez, AIRPLANE RIGGER - 10/17/2024 1:29 PM EDT Patient: Mono [...] by Swetha Villareal MD Staffing Performed: ISH AIRPLANE RIGGER: Jenna Lopez CRNA * Anesthesia Procedure Notes - Jenna Lopez CRNA - 10/17/2024 9:00 AM EDT Associated Order(s): Airway Airway Date/Time: 10/17/2024 8:03 AM Reason: elective Airway not difficult General Information and Staff Patient location during procedure: [place] AIRPLANE RIGGER: Jenna Lopez CRNA Performed: AIRPLANE RIGGER Patient Condition Indications for airway management: anesthesia [...] T2DM, HLD, HTN, RLS who presented to [facility] with a large left common femoral artery [...] CEA 2016 + 3rd degree AV block CHERRY CUTTER-P placed 08/2023 for Wenkeback with 11 sec pause + HLD + HTN - controlled + PAD 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 CORONARY ANGIOPLASTY Left Coronary Angiography With Concomitant Left Heart Catheterization from [facility] ??? CORONARY ARTERY BYPASS GRAFT N/A 2018 [...] EDT Office Visit [facility] [address] [place] [address] Oscar Appiah MD [address] [facility] [address] [place] [address] 12/19/2024 7:30 AM EDT Appointment [facility] [address] [place] [address] 12/19/2024 8:00 AM EDT Appointment [facility] [address] [place] [address] [address] [place] [address] 12/19/2024 9:00 AM EDT Office Visit [facility] [address] [place] [address] [address] [place] [address] Nathaly Nowak MD [address] [place] [address] [address] [place] [address] documented as of this encounter Goals Goal [...] Performed by Swetha Villareal MD Staffing Performed: AIRPLANE RIGGER AIRPLANE RIGGER: Jenna Lopez CRNA Maria Fernanda Mccallum MD ANESTHESIA ORDERABLES Edite d Result - Final * CA AN ELECTIVE ENDOTRACHEAL AIRWAY, PB ANESTHESIA PLACEHOLDER (10/17/2024 8:03 AM EDT) Narrative Jenna Lopez CRNA - 10/17/2024 8:03 AM EDT Jenna Lopez CRNA 10/17/2024 9:00 AM Airway Date/Time: 10/17/2024 8:03 AM Reason: elective Airway not difficult General Information and Staff Patient location during procedure: [place] AIRPLANE RIGGER: Jenna Lopez CRNA Performed: ISH Patient Condition [...] Trace AR. The images were Saved in [employer]. The study was technically adequate. Comments: I [...] Starting on Yadira 10/17/24 at 0837, Until Yadria 10/17/24 at 1329, Routine New Bag 10/17/2024 [...] as of this encounter Care Teams Rn Field Case Manager Relationship Specialty Start Date End Date Asad Victor MD [address] [place] [address] PCP - General 10/07/22 documented as of this encounter
--- OUTSIDE RECORDS SUMMARY | 2024-10-17 08:00 | XMS_ITS | Encounter Summary ---
Author Organization [facility] Address [address] [place] [address] Care Team Providers Care Barback Name Role Phone Asad Victor MD Primary Care Provider + [phone] Reason for Visit * Auth/Cert (Routine) Specialty Diagnoses / Procedures Referred By Contac t Referred To Contact Diagnoses Critical limb ischemia of left lower extremity Critical limb ischemia of left lower extremity [I70.222] Procedures WI VEIN BYPASS GRAFT,FEM-POP CREATION, BYPASS, ARTERIAL, FEMORAL TO POPLITEAL Terrell Gautam MD [address] [address] Phone: tel: fax: [facility] [address] [place] [address] Phone: tel: Referral ID Status Reason Start Date Expiration Date Visits Re quested Visits Authorized [id number] 1 1 Encounter Details Date Type Department Care Team (Late st Contact Info) Description 10/17/2024 8:00 AM EDT - 10/17/2024 2:50 PM EDT Surgery [facility] [address] [place] [address] Terrell Gautam MD [address] [address] CREATION, BYPASS, ARTERIAL, FEMORAL TO POPLITEAL [03992 (CPT )] Surgery Details Date/Time Status Location [...] any time in the past [facility], were you homeless or living in [...] drink first t dino in the morning (EYE-QA ANALYST) to steady your nerves or to get rid of a hangover? 0 10/18/2021 CAGE Questionnaire Score 0 022 Utilities Answer Date Recorded In the past 12 months has th e [employer], gas, oil, or water [employer] threatened to shut off services in your [...] provided Taken 10/17/20242107 by Jourdan Grimes II, applications specialist Review/Management: medications reviewed Problem: Skin Injury [...] Ongoing, Progressing Intervention: Promote Activity and Functional [place] Flowsheets (Taken 10/19/2024 1048) Self-Care Promotion: BADL personal objects within reach meal set-up provided * Yuni Ramires - Keyla Chow - 10/19/2024 11:45 AM EDT Images from the original note were not included. [id number] After Peripheral Artery Bypass Surgery: In the [...] home. Last Reviewed Date: 2023 00:00:00 ?? [id number] [employer]. All rights reserved. This information is not intended as a substitute for professional medical care. Always follow your healthcare professional's instructions. * Progress Notes - Emelina Friend - 10/19/2024 11:44 AM EDT Case Management Adult Progress Note Bev Bobby 64 y.o. male CSN: [id number] Admission: 10/17/2024 6:21 AM Primary Problem: Critical [...] if any other needs arise. Emelina Friend GLASS ETCHER, BODY ARTIST Social Work Case Management * Yuni Ramires - Keyla Chow - 10/19/2024 11:44 AM EDT Images from the original note were not included. [id number] Peripheral Artery Disease (PAD) Peripheral artery disease [...] cause. Last Reviewed Date: 2024 00:00:00 ?? [id number] [employer]. All rights reserved. This information is not intended as a substitute for professional medical care. Always follow your healthcare professional's instructions. * Yuni Ramires - Keyla Chow - 10/19/2024 11:44 AM EDT Images from the original note were not included. [id number] Leg Artery Emergencies: Critical Limb Ischemia (CLI) [...] appointments. Last Reviewed Date: 2023 00:00:00 ?? [id number] [employer]. All rights reserved. This information is not intended as a substitute for professional medical care. Always follow your healthcare professional's instructions. * Discharge Summary - Dandy Baltazar MD - 10/19/2024 11:31 AM EDT Hospitalization Admit Date/Time: 10/17/2024 6:21 AM Admitting Attending: Terrell Gautam Discharge Date: 10/19/24 Discharge Attending Physician: Nirmal Cueto MD PCP name and Address: Asad Victor MD (Inactive) [address] [facility] [address] Referring provider name and address: Timothy Marques PA [address] [place] [address] Chief Concern, Brief History of Present Illness, and Hospital Course Bev Bobby is an 64 y.o. 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 He [...] Your Medications These medications were sent to [facility] [place], [place] - [address] [facility] [address] [facility] [address] [facility] [id number] acetaminophen 500 MG tablet clopidogrel 75 MG [...] of water. 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 He [...] provided Taken 10/17/20242107 by Jourdan Grimes II applications specialist Review/Management: medications reviewed Problem: Skin Injury [...] Ongoing, Progressing Intervention: Promote Activity and Functional [place] Flowsheets (Taken 10/19/2024 1048) Self-Care Promotion: BADL [...] evaluation. PARTICIPANTS IN CARE Visitors Present No Medical Assistant Internal Medicine (if applicable) PRESENTATION Oxygen Oxygen Therapy: None [...] Level of Mobility Ambulatory- household only Mobility [place] Independent gait with device (rollator) History of [...] numbness in rodney) BED MOBILITY Level of [place] Physical/Non- physical Assist Adaptive Equipment Utilized Rolling/ Turning Scooting/ Bridging Modified independence (anteriorly to EOB) Bed rails Supine to Sit Modified [place] (to the right) (HOB flat) Bed rails Sit to Supine Interventions HOB flat to simulate home environment TRANSFERS Level of [place] Physical/Non- physical Assist Adaptive Equipment Utilized Sit [...] stable surfaces during transitions. AMBULATION Level of [place] Distance Adaptive Equipment Utilized Ambulation Standby assist, [...] Posture: Forward head, Rounded shoulders Level of [place] Balance Support Interventions Static Sit Independent Right [...] Assessments Standardized Assessments: AMPA 6-Clicks Mobility Assessment [facility] 6-Clicks Mobility Assessment Difficulty patient has [...] 3-5 steps with a railing?: A little [facility] 6-Clicks Mobility Assessment Total : [...] evaluation/session. Participants in Care Family/Caregiver Present: No Medical Assistant Internal Medicine: Not Applicable Presentation Oxygen Therapy: None (Room [...] Level of Mobility: Ambulatory- household only Mobility [place]: Independent gait with device (rollator) History of [...] Mobility Bed Mobility Exam: Scooting/Bridging Level of [place]: Modified independence (anteriorly to EOB) Assistive Device: Bed rails Bed Mobility Exam: Supine to Sit Level of [place]: Modified [place] (to the right) Physical/Nonphysical Assist: (HOB flat) Assistive Device: Bed rails Transfers Transfer Exam: Sit to stand Level of [place]: Stand-by assist Physical/Nonphysical Assist: Supervision, Verbal Cues, Minimal cues Assistive Device: Walker, rolling Transfer Exam: Stand to Sit Level of [place]: Stand-by assist Physical/Nonphysical Assist: Supervision, Verbal Cues, [...] regarding toileting at this time. Standardized Assessments [facility] 6-Click Daily Activities Help from Other: Don/Doff Regular Lower Body Clothings: None Help From Other: Bathing: Little Help From Other: Toileting: None Help From Other: Don/Doff Upper Body Clothings: None Help From Other: Grooming: None Help From Other: Eating Meals: None [facility] 6 Click - Daily Activities Score: 23/24 [facility] Scoring Interpretation: Scores greater than [...] Note Bev Bobby 64 y.o. male CSN: [id number] Admission: 10/17/2024 6:21 AM Primary Problem: Critical limb ischemia of left lower extremity Glass Glazier reviewed chart and spoke with patient to complete this Initial Case Management Assessment. PCP: Asad Victor MD (Inactive) - Dr. Palomo Preferred pharmacy is [facility] Emergency Contact: Extended Emergency Contact Information Primary Emergency Contact: Patti Hill Relation: Sister Medical Assistant Internal Medicine needed? No Insurance: Primary Visit Coverage Payer Plan Sponsor Code Group Number Group Name [facility] MEDICARE [facility] MEDICARE REPLACEMENT [id number] Primary Visit Coverage Subscriber Subscriber ID Subscriber Name Subscriber [facility] Subscriber Address [id number] BEV BOBBY [id number] [place] [address] Secondary Visit Coverage Payer Plan Sponsor Code Group Number Group Name [employer] [facility] Secondary Visit Coverage Subscriber Subscriber ID Subscriber Name Subscriber [facility] Subscriber Address [id number] BEV BOBBY [id number] [place] [address] Patient information: Primary Caregiver: Self Daily Living Activities: Functional Status: Independent Living Arrangements: Alone Type of Residence: Private residence, Single Level [address] [place] [address] Current DME: Equipment Currently Used at Home: joy monterroso Income Information: Income Source: Retired Income/Expense Information: Income meets expenses Current Resources Utilized: Food [place] Housing Circumstances-Z Codes: Housing Circumstances (select all [...] Dialysis Services: None. Living Will/Advance Directive/Power of Curator /Guardian: Denied. Additional Comments: Patient is not medically ready for discharge. SW will continue to follow. Mariia Monterroso BODY ARTIST * Care Plan - Emilia Alonso RN [...] from the original note were not included. [facility] Department of Surgery Division of [...] Prevention: activity supervised assistive device/personal items within [facility] fall prevention program maintained lighting adjusted clutter-free [...] Agree with above assessment and evaluation from resident/EXPERIMENTAL PLASTICS FABRICATOR. * Op Note - Terrell Gautam MD - 10/17/2024 8:52 AM EDT Operative Note Date: 10/17/24 Location: [place] [facility] Name: Bev Bobby, : 1960, Diagnoses: Pre-op Diagnosis Critical limb ischemia of left lower extremity Common femoral artery pseudoaneurysm Post-op Diagnosis Critical limb ischemia of left lower extremity Common femoral artery pseudoaneurysm Procedure(s): Left common/superficial/profunda femoral thromboendarterectomy with bovine patch repair Left external iliac artery/SHOE STICKS REPAIRER stent Attending Surgeon(s): * Terrell Gautam - Primary Audit Officer(s): * Luna Beckett MD - Resident - [...] Necessity Reasons Recent surgery contiguous with urinary tract/[employer]ER [employer]/colorectal 10/17/24 190 Output (mL) 50 mL 10/18/24 08 Implants Type Name Action Serial No. VASCUGUARD 8 X 8 - [id number] Implanted STENT ENDOPROSTHESIS VIABAHN 9FR [id number] - [id number] Implanted [id number] Specimen: Specimens ID Source Frozen? 1 Other [...] and distal control. We then proceeded with gghrz-nyi-jqcj exposure of the popliteal artery. A medial [...] balloon dilated thestent with a 9 mm [place]. We closed the arteriotomy with a single [...] 8:52 AM EDT Date: 10/17/24 Location: [place] [facility] Name: Bev Bobby, : 1960, Diagnoses: Pre-op Diagnosis Critical limb ischemia of left lower extremity Common femoral artery pseudoaneurysm Post-op Diagnosis Critical limb ischemia of left lower extremity Common femoral artery pseudoaneurysm Procedure(s): Left common/superficial/profunda femoral thromboendarterectomy with bovine patch repair Left external iliac artery/SHOE STICKS REPAIRER stent Attending Surgeon(s): * Terrell Gautam - Primary Audit Officer(s): * Luna Beckett MD - Resident - Assisting * Dandy Baltazar MD - Fellow Anesthesia: General ASA: III Blood Administration: Blood Product Administration History None Estimated Blood Loss: 300 mL Drains: Urethral Catheter Temperature probe 16 Fr. (Active) Implants Type Name Action Serial No. VASCUGUARD 8 X 8 - [id number] Implanted STENT ENDOPROSTHESIS VIABAHN 9FR [id number] - [id number] Implanted [id number] Specimen: Specimens ID Source Frozen? 1 Other [...] issues. 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 He previouslyunderwent thrombin injection. He reports pain in his calves. He presents today for scheduled left lower extremity femoral to bmrhy-pjj-eipn popliteal bypass. Planned likely use PTFE. He [...] 16. Results Review {Vanishing Link Review Results :[id number] I have reviewed the latest lab and imaging results. Assessment & Plan Critical limb ischemia of left lower extremity Proceed with scheduled surgery left lower extremity femoral to xzfzx-unc-zorn popliteal artery bypass graft. Extensive discussion had [...] 11/29/2024 2:30 PM EDT Office Visit [facility] [address] [place] [phone] Oscar Appiah MD [address] [facility] [address] [place] [phone] 12/19/2024 7:30 AM EDT Appointment [facility] [address] [place] [address] 12/19/2024 8:00 AM EDT Appointment [facility] [address] [place] [address] 12/19/2024 9:00 AM EDT Office Visit [facility] [address] [place] [address] Nathaly Nowak MD [address] [facility] [address] [place] [address] Pending Results Name Type Priority Associated Diagnoses [...] POCT glucose meter (10/19/2024 11:40 AM EDT) Pathologist [facility] POCT Glucose 207(H) 74 - 99 mg/dL [...] Comment 10/19/2024 11:42 AM EDT HEALTHCARE LAB Professional Services Specialist ID KamranJob 10/20/19 11:42 AM EDT HEALTHCARE LAB Device ID [id number] 10/19/2024 11:42 AM EDT HEALTHCARE LAB Specimen Type POC Capillary 10/19/2024 11:42 AM EDT [facility] Blood Capillary blood specimen / Unknown 10/19/2024 11:40 AM EDT 10/19/2024 11:42 AM EDT us Terrell Gautam MD LAB POINT OF CARE TE ST DOCKED DEVICE UNSOLICITED RESULTS Final Result Performing Organization Address City/State/[facility] Co de Phone Number HEALTHCARE LAB [address] [place] [address] * (ABNORMAL) Protime-INR (10/19/2024 8:25 AM EDT) [facility] Prothrombin Time 17.5(H) 12.0 - 14.3 sec LAB COAGULATION METHOD 10/19/2024 9:25 AM EDT [facility] INR 1.4(H) 0.9 - 1.1 LAB COAGULATION METHOD 10/19/2024 9:25 AM EDT [facility] Blood Venous blood specimen / Unknown Venipuncture / Unknown 10/19/2024 8:25 AM EDT 10/19/2024 8:43 AM EDT Narrative [facility] - 10/19/2024 9:25 AM EDT OPTIMAL INR RANGES FOR PATIENT ON ORAL ANTICOAGULANT THERAPY Prevention of venous thromboembolism INR 2.0 to 3.0 In patients with heart disease: Atrial fibrillation INR 2.0 to 3.0 Valvular heart disease INR 2.0 to 3.0 Tissue heart valves INR 2.0 to 3.0 Mechanical prosthetic valves INR 2.5 to 3.5 Prevention of recurrent AR INR 2.5 to 3.5 us Nirmal Cueto MD LAB BLOOD ORDERABLES Final Result Performing Organization Address [facility]/ZIP Co de Phone Number [facility] [address] [place] [address] * (ABNORMAL) Phosphorus (10/19/2024 8:25 AM EDT) Phosphorus, Plasma 2.2(L) 2.5 - 4.5 mg/dL 10/19/2024 9:12 AM EDT [facility] Blood Venous blood specimen / Unknown Venipuncture / Unknown 10/19/2024 8:25 AM EDT 10/19/2024 8:43 AM EDT Nirmal Cueto MD LAB BLOOD ORDERABLES Final Result Performing Organization Address [facility] Co de Phone Number [facility] [address] [place] [address] * Magnesium (10/19/2024 8:25 AM EDT) Magnesium, Plasma 2.1 1.9 - 2.4 mg/dL 10/19/2024 9:12 AM EDT [facility] Blood Venous blood specimen / Unknown Venipuncture / Unknown 10/19/2024 8:25 AM EDT 10/19/2024 8:43 AM EDT Nirmal Cueto MD LAB BLOOD ORDERABLES Final Result Performing Organization Address [facility] Co de Phone Number [facility] [address] [place] [address] * (ABNORMAL) Basic metabolic panel (10/19/2024 8:25 AM EDT) Glucose, Plasma 191(H) 74 - 99 mg/dL 10/19/2024 9:12 AM EDT [facility] BUN, Plasma 18 8 - 23 mg/dL 10/19/2024 9:12 AM EDT [facility] Creatinine, Plasma 0.76 0.70 - 1.20 mg/dL 10/19/2024 9:12 AM EDT [facility] BUN/Creatinine Ratio 24 10/19/2024 9:12 AM EDT [facility] Sodium, Plasma 135(L) 136 - 145 mmol/L 10/19/2024 9:12 AM EDT [facility] Potassium, Plasma 4.1 3.6 - 4.9 mmol/L 10/19/2024 9:12 AM EDT [facility] Chloride, Plasma 104 97 - 107 mmol/L 10/19/2024 9:12 AM EDT [facility] CO2, Plasma 22 22 - 29 mmol/L 10/19/2024 9:12 AM EDT [facility] Anion Gap 9 6 - 16 mmol/L 10/19/2024 9:12 AM EDT [facility] Total Calcium, Plasma 8.4(L) 8.9 - 10.2 mg/dL 10/19/2024 9:12 AM EDT [facility] eGFRcr 99.7 mL/min/1.7 3m*2 10/19/2024 9:12 AM EDT [facility] Comment:Reported eGFRcr in m L/min/1.73m2 is based the CKD-EPI 2020 equation that does not use a race coefficient. Blood Venous blood specimen / Unknown Venipuncture / Unknown 10/19/2024 8:25 AM EDT 10/19/2024 8:43 AM EDT us Nirmal Cueto MD LAB BLOOD ORDERABLES Final Result [facility] [address] [place] [address] * (ABNORMAL) CBC W/O Differential (10/19/2024 8:25 AM EDT) WBC Count 14.10(H) 3.70 - 10.30 10*3/uL LAB HEMATOLOGY METHOD 10/19/2024 8:52 AM EDT [facility] RBC Count 2.61(L) 4.60 - 6.10 10*6/uL LAB HEMATOLOGY METHOD 10/19/2024 8:52 AM EDT [facility] HGB 8.0(L) 13.7 - 17.5 g/dL LAB HEMATOLOGY METHOD 10/19/2024 8:52 AM EDT [facility] HCT 24.3(L) 40.0 - 51.0 % LAB HEMATOLOGY METHOD 10/19/2024 8:52 AM EDT [facility] Platelet Count 318 155 - 369 10*3/uL LAB HEMATOLOGY METHOD 10/19/2024 8:52 AM EDT [facility] MCV 93 79 - 98 fL LAB HEMATOLOGY METHOD 10/19/2024 8:52 AM EDT [facility] MCH 30.7 26.0 - 32.0 pg LAB HEMATOLOGY METHOD 10/19/2024 8:52 AM EDT [facility] MCHC 32.9 30.7 - 35.5 g/dL LAB HEMATOLOGY METHOD 10/19/2024 8:52 AM EDT [facility] RDW 13.4 11.5 - 14.5 % LAB HEMATOLOGY METHOD 10/19/2024 8:52 AM EDT [facility] MPV 9.6 8.8 - 12.5 fL LAB HEMATOLOGY METHOD 10/19/2024 8:52 AM EDT [facility] nRBC 0.0 <=0.0 per 100 WBCs LAB HEMATOLOGY METHOD 10/19/2024 8:52 AM EDT [facility] Blood Venous blood specimen / Unknown Venipuncture / Unknown 10/19/2024 8:25 AM EDT 10/19/2024 8:44 AM EDT us Nirmal Cueto MD LAB BLOOD ORDERABLES Final Result [facility] [address] [place] [address] * (ABNORMAL) POCT glucose meter (10/19/2024 7:35 AM EDT) POCT Glucose 187(H) 74 - 99 mg/dL 10/19/2024 7:37 AM EDT [facility] Comment:Accuracy of a glucos [...] Comment 10/19/2024 7:37 AM EDT HEALTHCARE LAB Professional Services Specialist ID Job Andrew 10/20/19 7:37 AM EDT HEALTHCARE LAB Device ID [id number] 10/19/2024 7:37 AM EDT [facility]ALTH[facility]ARE LAB Specimen Type POC Capillary 10/19/2024 7:37 AM EDT [facility] Blood Capillary blood specimen / Unknown 10/19/2024 7:35 AM EDT 10/19/2024 7:37 AM EDT us Terrell Gautam MD LAB POINT OF CARE TE ST DOCKED DEVICE UNSOLICITED RESULTS Final Result Performing Organization Address City/State/[facility] Co de Phone Number [facility]ALTH[facility]ARE LAB [address] [place] [address] * (ABNORMAL) POCT glucose meter (10/18/2024 7:22 PM EDT) [facility] POCT Glucose 178(H) 74 - [...] Comment 10/18/2024 7:24 PM EDT [facility]ALTH[facility]ARE LAB Professional Services Specialist ID Mahesh Aldana 10/18/2024 7:24 PM EDT HEALTHCARE LAB Device ID [id number] 10/18/2024 7:24 PM EDT HEALTH[facility]ARE LAB Specimen Type POC Capillary 10/18/2024 7:24 PM EDT [facility]ALTH[facility]ARE LAB Blood Capillary blood specimen / Unknown 10/18/2024 7:22 PM EDT 10/18/2024 7:24 PM EDT us Terrell Gautam MD LAB POINT OF CARE TE ST DOCKED DEVICE UNSOLICITED RESULTS Final Result Performing Organization Address [facility] Co de Phone Number [facility] [address] [place] [address] * (ABNORMAL) POCT glucose meter (10/18/2024 6:07 PM EDT) Pathologist [facility] POCT Glucose 167(H) 74 - 99 mg/dL [...] Comment 10/18/2024 6:09 PM EDT HEALTHCARE LAB Professional Services Specialist ID David Parks Elaine 10/18/2024 6:09 PM EDT HEALTHCARE LAB Device ID [id number] 10/18/2024 6:09 PM EDT HEALTHCARE LAB Specimen Type POC Capillary 10/18/2024 6:09 PM EDT [facility] Blood Capillary blood specimen / Unknown 10/18/2024 6:07 PM EDT 10/18/2024 6:09 PM EDT Terrell Gautam MD LAB POINT OF CARE TE ST DOCKED DEVICE UNSOLICITED RESULTS Final Result Performing Organization Address [facility] Co de Phone Number [facility] [address] [place] [address] * (ABNORMAL) POCT glucose meter (10/18/2024 11:56 AM EDT) [facility] POCT Glucose 233(H) 74 - 99 [...] 10/21/2024 7:42 AM EDT [facility] Professional Services Specialist ID Venessa Marcano 10/21/2024 7:42 AM EDT [facility] Device ID [id number] 10/21/2024 7:42 AM EDT HEALTHCARE LAB Specimen Type POC Capillary 10/21/2024 7:42 AM EDT [facility]ALTH[facility]ARE LAB Blood Capillary blood specimen / Unknown 10/18/2024 11:56 AM EDT 10/21/2024 7:42 AM EDT us Terrell Gautam MD LAB POINT OF CARE TE ST DOCKED DEVICE UNSOLICITED RESULTS Final Result Performing Organization Address City/[facility] Co de Phone Number [facility] [address] [place] [address] * (ABNORMAL) POCT glucose meter (10/18/2024 9:24 AM EDT) Pathologist [facility] POCT Glucose 322(H) 74 - 99 mg/dL [...] 10/21/2024 7:42 AM EDT [facility] Professional Services Specialist ID Emilia Alonso 7:42 AM EDT [facility] Device ID [id number] 10/21/2024 7:42 AM EDT [facility] Specimen Type POC Venous 10/21/2024 7:42 AM EDT HEALTH[facility]ARE LAB Blood Venous blood specimen / Unknown 10/18/2024 9:24 AM EDT 10/21/2024 7:42 AM EDT us Terrell Gautam MD LAB POINT OF CARE TE ST DOCKED DEVICE UNSOLICITED RESULTS Final Result Performing Organization Address City/[facility] Co de Phone Number [facility] [address] [place] [address] * (ABNORMAL) POCT glucose meter (10/18/2024 7:36 [...] Comment 10/18/2024 7:38 AM EDT HEALTHCARE LAB Professional Services Specialist ID Kizzy Godfrey 025 7:38 AM EDT HEALTHCARE LAB Device ID [id number] 10/18/2024 7:38 AM EDT [facility] Specimen Type POC Capillary 10/18/2024 7:38 AM EDT [facility] Blood Capillary blood specimen / Unknown 10/18/2024 7:36 AM EDT 10/18/2024 7:38 AM EDT us Terrell Gautam MD LAB POINT OF CARE TE ST DOCKED DEVICE UNSOLICITED RESULTS Final Result [facility] [address] [place] [address] * (ABNORMAL) CBC (10/18/2024 2:09 AM EDT) [facility] [facility] WBC Count 16.71(H) 3.70 - 10.30 10*3/uL LAB HEMATOLOGY METHOD 10/18/2024 2:33 AM EDT [facility] RBC Count 2.78(L) 4.60 - 6.10 10*6/uL LAB HEMATOLOGY METHOD 10/18/2024 2:33 AM EDT [facility] HGB 8.5(L) 13.7 - 17.5 g/dL LAB HEMATOLOGY METHOD 10/18/2024 2:33 AM EDT [facility] HCT 25.7(L) 40.0 - 51.0 % LAB HEMATOLOGY METHOD 10/18/2024 2:33 AM EDT [facility] Platelet Count 324 155 - 369 10*3/uL LAB HEMATOLOGY METHOD 10/18/2024 2:33 AM EDT [facility] MCV 92 79 - 98 fL LAB HEMATOLOGY METHOD 10/18/2024 2:33 AM EDT [facility] MCH 30.6 26.0 - 32.0 pg LAB HEMATOLOGY METHOD 10/18/2024 2:33 AM EDT [facility] MCHC 33.1 30.7 - 35.5 g/dL LAB HEMATOLOGY METHOD 10/18/2024 2:33 AM EDT [facility] RDW 13.3 11.5 - 14.5 % LAB HEMATOLOGY METHOD 10/18/2024 2:33 AM EDT [facility] MPV 9.4 8.8 - 12.5 fL LAB HEMATOLOGY METHOD 10/18/2024 2:33 AM EDT [facility] nRBC 0.0 <=0.0 per 100 WBCs LAB HEMATOLOGY METHOD 10/18/2024 2:33 AM EDT [facility] Blood Venous blood specimen / Unknown Venipuncture / Unknown 10/18/2024 2:09 AM EDT 10/18/2024 2:25 AM EDT Nirmal Cueto MD LAB BLOOD ORDERABLES Final Result [facility] [address] [place] [address] * (ABNORMAL) Basic metabolic panel (10/18/2024 2:09 AM EDT) Glucose, Plasma 206(H) 74 - 99 mg/dL 10/18/2024 2:53 AM EDT [facility] BUN, Plasma 24(H) 8 - 23 mg/dL 10/18/2024 2:53 AM EDT [facility] Creatinine, Plasma 1.17 0.70 - 1.20 mg/dL 10/18/2024 2:53 AM EDT [facility] BUN/Creatinine Ratio 21 10/18/2024 2:53 AM EDT [facility] Sodium, Plasma 136 136 - 145 mmol/L 10/18/2024 2:53 AM EDT [facility] Potassium, Plasma 4.8 3.6 - 4.9 mmol/L 10/18/2024 2:53 AM EDT [facility] Chloride, Plasma 104 97 - 107 mmol/L 10/18/2024 2:53 AM EDT [facility] CO2, Plasma 22 22 - 29 mmol/L 10/18/2024 2:53 AM EDT [facility] Anion Gap 10 6 - 16 mmol/L 10/18/2024 2:53 AM EDT [facility] Total Calcium, Plasma 8.5(L) 8.9 - 10.2 mg/dL 10/18/2024 2:53 AM EDT [facility] eGFRcr 69.2 mL/min/1.7 3m*2 10/18/2024 2:53 AM EDT [facility] Comment:Reported eGFRcr in m L/min/1.73m2 is based the CKD-EPI 2020 equation that does not use a race coefficient. Blood Venous blood specimen / Unknown Venipuncture / Unknown 10/18/2024 2:09 AM EDT 10/18/2024 2:25 AM EDT Nirmal Cueto MD LAB BLOOD ORDERABLES Final Result Performing Organization Address City/[facility]/ZIP Co de Phone Number [facility] [address] [place] [address] * (ABNORMAL) Magnesium (10/18/2024 2:09 AM EDT) Magnesium, Plasma 1.8(L) 1.9 - 2.4 mg/dL 10/18/2024 2:53 AM EDT [facility] Blood Venous blood specimen / Unknown Venipuncture / Unknown 10/18/2024 2:09 AM EDT 10/18/2024 2:25 AM EDT Nirmal Cueto MD LAB BLOOD ORDERABLES Final Result [facility] [address] [place] [address] * Phosphorus (10/18/2024 2:09 AM EDT) Phosphorus, Plasma 3.7 2.5 - 4.5 mg/dL 10/18/2024 2:53 AM EDT [facility] Blood Venous blood specimen / Unknown Venipuncture / Unknown 10/18/2024 2:09 AM EDT 10/18/2024 2:25 AM EDT Nirmal Cueto MD LAB BLOOD ORDERABLES Final Result Performing Organization Address [facility] Co de Phone Number [facility] [address] [place] [address] * (ABNORMAL) Protime-INR (10/18/2024 2:09 AM EDT) Prothrombin Time 14.5(H) 12.0 - 14.3 sec LAB COAGULATION METHOD 10/18/2024 2:53 AM EDT [facility] INR 1.1 0.9 - 1.1 LAB COAGULATION METHOD 10/18/2024 2:53 AM EDT [facility] Blood Venous blood specimen / Unknown Venipuncture / Unknown 10/18/2024 2:09 AM EDT 10/18/2024 2:25 AM EDT Narrative [facility] - 10/18/2024 2:53 AM EDT OPTIMAL INR RANGES FOR PATIENT ON ORAL ANTICOAGULANT THERAPY Prevention of venous thromboembolism INR 2.0 to 3.0 In patients with heart disease: Atrial fibrillation INR 2.0 to 3.0 Valvular heart disease INR 2.0 to 3.0 Tissue heart valves INR 2.0 to 3.0 Mechanical prosthetic valves INR 2.5 to 3.5 Prevention of recurrent AR INR 2.5 to 3.5 Result [facility] Nirmal Cueto MD LAB BLOOD ORDERABLES Final Result Performing Organization Address [facility] Co de Phone Number [facility] [address] [place] [address] * (ABNORMAL) POCT glucose meter (10/18/2024 2:08 AM EDT) POCT Glucose 202(H) 74 - 99 mg/dL 10/18/2024 2:10 AM EDT [facility] Comment:Accuracy of a glucos [...] Comment 10/18/2024 2:10 AM EDT [facility] Professional Services Specialist ID Jourdan Grimes II 10/18/2024 2:10 AM EDT [facility] Device ID [id number] 10/18/2024 2:10 AM EDT [facility] Specimen Type POC Capillary 10/18/2024 2:10 AM EDT [facility] Blood Capillary blood specimen / Unknown 10/18/2024 2:08 AM EDT 10/18/2024 2:10 AM EDT us Terrell Gautam MD LAB POINT OF CARE TE ST DOCKED DEVICE UNSOLICITED RESULTS Final Result Performing Organization Address City/[facility] Co va Phone Number [facility] [address] [place] [address] * (ABNORMAL) POCT glucose meter (10/17/2024 10:07 PM EDT) [facility] POCT Glucose 300(H) 74 - [...] Comment 10/17/2024 10:10 PM EDT [facility] Professional Services Specialist ID Jourdan Grimes II 10/17/2024 10:10 PM EDT [facility] Device ID [id number] 10/17/2024 10:10 PM EDT [facility] Specimen Type POC Capillary 10/17/2024 10:10 PM EDT [facility] Blood Capillary blood specimen / Unknown 10/17/2024 10:07 PM EDT 10/17/2024 10:10 PM EDT us Terrell Gautam MD LAB POINT OF CARE TE ST DOCKED DEVICE UNSOLICITED RESULTS Final Result [facility] [address] [place] [address] * (ABNORMAL) POCT glucose meter (10/17/2024 8:07 PM EDT) [facility] POCT Glucose 391(H) 74 - 99 [...] Comment 10/17/2024 8:10 PM EDT [facility] Professional Services Specialist ID Cornelio WALTERS Jourdan 10/17/2024 8:10 PM EDT [facility] Device ID [id number] 10/17/2024 8:10 PM EDT [facility] Specimen Type POC Capillary 10/17/2024 8:10 PM EDT [facility] Blood Capillary blood specimen / Unknown 10/17/2024 8:07 PM EDT 10/17/2024 8:10 PM EDT Terrell Gautam MD LAB POINT OF CARE TE ST DOCKED DEVICE UNSOLICITED RESULTS Final Result Performing Organization Address [facility] de Phone Number [facility] [address] [place] [address] * (ABNORMAL) POCT glucose meter (10/17/2024 4:01 PM EDT) [facility] POCT Glucose 249(H) 74 - 99 [...] 10/17/2024 4:03 PM EDT [facility] Professional Services Specialist ID Chelsieamanda Keisha 10/17/2024 4:03 PM EDT [facility] Device ID [id number] 10/17/2024 4:03 PM EDT [facility] Specimen Type POC Capillary 10/17/2024 4:03 PM EDT [facility] Blood Capillary blood specimen / Unknown 10/17/2024 4:01 PM EDT 10/17/2024 4:03 PM EDT us Terrell Gautam MD LAB POINT OF CARE TE ST DOCKED DEVICE UNSOLICITED RESULTS Final Result Performing Organization Address City/[facility] Co de Phone Number [facility] [address] [place] [address] * (ABNORMAL) POCT glucose meter (10/17/2024 1:25 PM EDT) [facility] POCT Glucose 225(H) 74 - [...] 10/17/2024 1:27 PM EDT [facility] Professional Services Specialist ID Kizzy Godfrey 025 1:27 PM EDT [facility] Device ID [id number] 10/17/2024 1:27 PM EDT [facility] Specimen Type POC Capillary 10/17/2024 1:27 PM EDT [facility] Blood Capillary blood specimen / Unknown 10/17/2024 1:25 PM EDT 10/17/2024 1:27 PM EDT us Terrell Gautam MD LAB POINT OF CARE TE ST DOCKED DEVICE UNSOLICITED RESULTS Final Result Performing Organization Address City/[facility] Co de Phone Number [facility] [address] [place] [address] * [place] Less than 1 Hour Intraoperative [...] Seconds 10/29/2024 7:28 AM EDT [facility] Professional Services Specialist ID Donna Mcmillan 10/29/2024 7:28 AM EDT [facility] ACT Device ID [id number] 10/29/2024 7:28 AM EDT [facility] Comment 10/29/2024 7:28 AM EDT [facility] Comment: ACT performed by staff [...] UNSOLICITED RESULTS Final Result Performing Organization Address City/[facility] Co de Phone Number [facility] [address] LAB [address] [place] [address] * (ABNORMAL) Blood gas, arterial (10/17/2024 11:48 AM EDT) pH, Arterial 7.34 7.31 - 7.42 LAB HEMATOLOGY METHOD 10/17/2024 11:54 AM EDT [facility] pCO2, Arterial 41 32 - 45 mmHg LAB HEMATOLOGY METHOD 10/17/2024 11:54 AM EDT [facility] pO2, Arterial 202 >80 mmHg LAB HEMATOLOGY METHOD 10/17/2024 11:54 AM EDT [facility] SO2, Measured, Arterial 100(H) 94 - 98 % LAB HEMATOLOGY METHOD 10/17/2024 11:54 AM EDT [facility] Base Excess, Arterial -3.2(L) -2.0 - 3.0 mmol/L LAB HEMATOLOGY METHOD 10/17/2024 11:54 AM EDT [facility] Bicarbonate, Calculated, Arterial 22 22 - 26 mmol/L LAB HEMATOLOGY METHOD 10/17/2024 11:54 AM EDT [facility] Hematocrit, Whole Blood 28.6(L) 40.0 - 51.0 % LAB HEMATOLOGY METHOD 10/17/2024 11:54 AM EDT [facility] Sodium, Whole Blood 137 136 - 145 mmol/L LAB HEMATOLOGY METHOD 10/17/2024 11:54 AM EDT [facility] Potassium, Whole Blood 4.5 3.6 - 4.9 mmol/L LAB HEMATOLOGY METHOD 10/17/2024 11:54 AM EDT [facility] Chloride, Whole Blood 112(H) 97 - 107 mmol/L LAB HEMATOLOGY METHOD 10/17/2024 11:54 AM EDT [facility] Glucose, Whole Blood 201(H) 74 - 99 mg/dL LAB HEMATOLOGY METHOD 10/17/2024 11:54 AM EDT [facility] Ionized Calcium, Whole Blood 4.8 4.6 - 5.1 mg/dL LAB HEMATOLOGY METHOD 10/17/2024 11:54 AM EDT [facility] Lactate, Arterial, Whole Blood 2.3(H) 0.5 - 1.6 mmol/L LAB HEMATOLOGY METHOD 10/17/2024 11:54 AM EDT [facility] Blood Arterial blood specimen / Unknown Arterial Puncture / Unknown 10/17/2024 11:48 AM EDT 10/17/2024 11:53 AM EDT us Jenna Lopez EXPERIMENTAL PLASTICS FABRICATOR LAB BLOOD ORDERABLES Final Re sult [facility] [address] [place] [address] * POCT ACT (10/17/2024 11:41 AM EDT) ACT+ (HIGH RANGE) 175 68 - 600 Seconds 10/29/2024 7:28 AM EDT [facility] Professional Services Specialist ID Oneyda Alicea 10/29/2024 7:28 AM EDT [facility] ACT Device ID [id number] 10/29/2024 7:28 AM EDT [facility] Comment 10/29/2024 7:28 AM EDT [facility] Comment: ACT performed by staff at [...] UNSOLICITED RESULTS Final Result Performing Organization Address City/[facility] Co de Phone Number [facility] [address] LAB [address] [place] [address] * POCT ACT (10/17/2024 11:11 AM EDT) ACT+ (HIGH RANGE) 252 68 - 600 Seconds 10/29/2024 7:28 AM EDT [facility] Professional Services Specialist ID Donna Mcimllan 10/29/2024 7:28 AM EDT [facility] ACT Device ID [id number] 10/29/2024 7:28 AM EDT [facility] Comment 10/29/2024 7:28 AM EDT [facility] Comment: ACT performed by staff at [...] UNSOLICITED RESULTS Final Result Performing Organization Address City/[facility]/ZIP Co de Phone Number [facility] [address] LAB [address] [place] [address] * (ABNORMAL) Blood gas, arterial (10/17/2024 10:46 AM EDT) pH, Arterial 7.35 7.31 - 7.42 LAB HEMATOLOGY METHOD 10/17/2024 10:56 AM EDT [facility] pCO2, Arterial 42 32 - 45 mmHg LAB HEMATOLOGY METHOD 10/17/2024 10:56 AM EDT [facility] pO2, Arterial 161 >80 mmHg LAB HEMATOLOGY METHOD 10/17/2024 10:56 AM EDT [facility] SO2, Measured, Arterial 100(H) 94 - 98 % LAB HEMATOLOGY METHOD 10/17/2024 10:56 AM EDT [facility] Base Excess, Arterial -2.2(L) -2.0 - 3.0 mmol/L LAB HEMATOLOGY METHOD 10/17/2024 10:56 AM EDT [facility] Bicarbonate, Calculated, Arterial 23 22 - 26 mmol/L LAB HEMATOLOGY METHOD 10/17/2024 10:56 AM EDT [facility] Hematocrit, Whole Blood 29.9(L) 40.0 - 51.0 % LAB HEMATOLOGY METHOD 10/17/2024 10:56 AM EDT [facility] Sodium, Whole Blood 138 136 - 145 mmol/L LAB HEMATOLOGY METHOD 10/17/2024 10:56 AM EDT [facility] Potassium, Whole Blood 4.0 3.6 - 4.9 mmol/L LAB HEMATOLOGY METHOD 10/17/2024 10:56 AM EDT [facility] Chloride, Whole Blood 110(H) 97 - 107 mmol/L LAB HEMATOLOGY METHOD 10/17/2024 10:56 AM EDT [facility] Glucose, Whole Blood 174(H) 74 - 99 mg/dL LAB HEMATOLOGY METHOD 10/17/2024 10:56 AM EDT [facility] Ionized Calcium, Whole Blood 5.1 4.6 - 5.1 mg/dL LAB HEMATOLOGY METHOD 10/17/2024 10:56 AM EDT [facility] Lactate, Arterial, Whole Blood 1.4 0.5 - 1.6 mmol/L LAB HEMATOLOGY METHOD 10/17/2024 10:56 AM EDT [facility] Blood Arterial blood specimen / Unknown Arterial Puncture / Unknown 10/17/2024 10:46 AM EDT 10/17/2024 10:54 AM EDT us Jenna Lopez EXPERIMENTAL PLASTICS FABRICATOR LAB BLOOD ORDERABLES Final Re sult Performing Organization Address City/[facility]/ZIP Co de Phone Number [facility] [address] [place] [address] * POCT ACT (10/17/2024 10:37 AM EDT) ACT+ (HIGH RANGE) 206 68 - 600 Seconds 10/29/2024 7:28 AM EDT [facility] Professional Services Specialist ID Donna Mcmillan 10/29/2024 7:28 AM EDT [facility] ACT Device ID [id number] 10/29/2024 7:28 AM EDT [facility] Comment 10/29/2024 7:28 AM EDT [facility] Comment: ACT performed by staff at [...] UNSOLICITED RESULTS Final Result Performing Organization Address [facility] Co de Phone Number [facility] [address] [place] [address] * Surgical Pathology Exam (10/17/2024 10:27 AM EDT) Case Report Surgical Pathology Case: [id number] Authorizing Provider: Terrell Gautam MD Collected: 10/17/2024 1027 Ordering Location: [facility] Received: 10/17/2024 1325 Pathologist: Haydee Osborne MD Specimen: Other (specify site), left common femoral plaque 10/21/2024 10:16 AM EDT [facility] Final Diagnosis A. LEFT COMMON FEMORAL PLAQUE, EXCISION: - CALCIFIED PLAQUE 10/21/2024 10:16 AM EDT [facility] at 1016 EDT Clinical Information Critical limb ischemia of left lower extremity [I70.222] 10/21/2024 10:16 AM EDT [facility] Gross Description A. LEFT COMMON FEMORAL PLAQUE Received in formalin labeled l eft common femoral plaque , is one aggregate of red-gabriel hard portions of plaque measuring 3.7 x 2.5 x 0.9 cm. The specimen is serially sectioned and inside account representative sections are submitted in cassette A1. Cold Time: <1m Kenia C Yola 10/21/2024 10:16 AM EDT [facility] Note: A resident was involved in the service. I attest I examined the relevant preparations for the specimens and confirmed the diagnosis or interpretation. 10/21/2024 10:16 AM EDT [facility] Tissue Topography unknown / Unknown 10/17/2024 10:27 AM EDT 10/17/2024 1:25 PM EDT Comment:Pre-op diagnosis: Critical limb ischemia of left lower extremity [I70.222] us Terrell Gautam MD LAB PATHOLOGY ORDERABLES Gwen grimaldo Result [facility] [address] [place] [id number] * POCT ACT (10/17/2024 10:03 AM EDT) ACT+ (HIGH RANGE) 244 68 - 600 Seconds 10/29/2024 7:28 AM EDT [facility] Professional Services Specialist ID Donna Mcmillan 10/29/2024 7:28 AM EDT [facility] ACT Device ID [id number] 10/29/2024 7:28 AM EDT [facility] Comment 10/29/2024 7:28 AM EDT [facility] Comment: ACT performed by staff [...] ST DOCKED DEVICE UNSOLICITED RESULTS Final Result [facility] [address] LAB [address] [place] [address] * (ABNORMAL) Blood gas, arterial (10/17/2024 9:45 AM EDT) pH, Arterial 7.37 7.31 - 7.42 LAB HEMATOLOGY METHOD 10/17/2024 9:55 AM EDT [facility] pCO2, Arterial 43 32 - 45 mmHg LAB HEMATOLOGY METHOD 10/17/2024 9:55 AM EDT [facility] pO2, Arterial 177 >80 mmHg LAB HEMATOLOGY METHOD 10/17/2024 9:55 AM EDT [facility] SO2, Measured, Arterial 100(H) 94 - 98 % LAB HEMATOLOGY METHOD 10/17/2024 9:55 AM EDT [facility] Base Excess, Arterial -0.5 -2.0 - 3.0 mmol/L LAB HEMATOLOGY METHOD 10/17/2024 9:55 AM EDT [facility] Bicarbonate, Calculated, Arterial 25 22 - 26 mmol/L LAB HEMATOLOGY METHOD 10/17/2024 9:55 AM EDT [facility] Hematocrit, Whole Blood 30.0(L) 40.0 - 51.0 % LAB HEMATOLOGY METHOD 10/17/2024 9:55 AM EDT [facility] Sodium, Whole Blood 137 136 - 145 mmol/L LAB HEMATOLOGY METHOD 10/17/2024 9:55 AM EDT [facility] Potassium, Whole Blood 4.3 3.6 - 4.9 mmol/L LAB HEMATOLOGY METHOD 10/17/2024 9:55 AM EDT [facility] Chloride, Whole Blood 108(H) 97 - 107 mmol/L LAB HEMATOLOGY METHOD 10/17/2024 9:55 AM EDT [facility] Glucose, Whole Blood 191(H) 74 - 99 mg/dL LAB HEMATOLOGY METHOD 10/17/2024 9:55 AM EDT [facility] Ionized Calcium, Whole Blood 5.0 4.6 - 5.1 mg/dL LAB HEMATOLOGY METHOD 10/17/2024 9:55 AM EDT [facility] Lactate, Arterial, Whole Blood 1.3 0.5 - 1.6 mmol/L LAB HEMATOLOGY METHOD 10/17/2024 9:55 AM EDT [facility] Blood Arterial blood specimen / Unknown Arterial Line / Unknown 10/17/2024 9:45 AM EDT 10/17/2024 9:52 AM EDT us Jenna Lopez CRNA LAB BLOOD ORDERABLES Final Re sult [facility] [address] [place] [address] * (ABNORMAL) Blood gas, arterial (10/17/2024 8:47 AM EDT) pH, Arterial 7.37 7.31 - 7.42 LAB HEMATOLOGY METHOD 10/17/2024 8:59 AM EDT [facility] pCO2, Arterial 43 32 - 45 mmHg LAB HEMATOLOGY METHOD 10/17/2024 8:59 AM EDT [facility] pO2, Arterial 205 >80 mmHg LAB HEMATOLOGY METHOD 10/17/2024 8:59 AM EDT [facility] SO2, Measured, Arterial 100(H) 94 - 98 % LAB HEMATOLOGY METHOD 10/17/2024 8:59 AM EDT [facility] Base Excess, Arterial -0.3 -2.0 - 3.0 mmol/L LAB HEMATOLOGY METHOD 10/17/2024 8:59 AM EDT [facility] Bicarbonate, Calculated, Arterial 25 22 - 26 mmol/L LAB HEMATOLOGY METHOD 10/17/2024 8:59 AM EDT [facility] Hematocrit, Whole Blood 31.3(L) 40.0 - 51.0 % LAB HEMATOLOGY METHOD 10/17/2024 8:59 AM EDT [facility] Sodium, Whole Blood 138 136 - 145 mmol/L LAB HEMATOLOGY METHOD 10/17/2024 8:59 AM EDT [facility] Potassium, Whole Blood 4.0 3.6 - 4.9 mmol/L LAB HEMATOLOGY METHOD 10/17/2024 8:59 AM EDT [facility] Chloride, Whole Blood 108(H) 97 - 107 mmol/L LAB HEMATOLOGY METHOD 10/17/2024 8:59 AM EDT [facility] Glucose, Whole Blood 162(H) 74 - 99 mg/dL LAB HEMATOLOGY METHOD 10/17/2024 8:59 AM EDT [facility] Ionized Calcium, Whole Blood 5.2(H) 4.6 - 5.1 mg/dL LAB HEMATOLOGY METHOD 10/17/2024 8:59 AM EDT [facility] Lactate, Arterial, Whole Blood 1.7(H) 0.5 - 1.6 mmol/L LAB HEMATOLOGY METHOD 10/17/2024 8:59 AM EDT [facility] Blood Arterial blood specimen / Unknown Arterial Puncture / Unknown 10/17/2024 8:47 AM EDT 10/17/2024 8:58 AM EDT us Jenna Lopez CRNA LAB BLOOD ORDERABLES Final Re sult [facility] [address] [place] [address] * POCT ACT (10/17/2024 8:46 AM EDT) ACT+ (HIGH RANGE) 101 68 - 600 Seconds 10/29/2024 7:28 AM EDT [facility] Professional Services Specialist ID Donna Mcmillan 10/29/2024 7:28 AM EDT [facility] ACT Device ID [id number] 10/29/2024 7:28 AM EDT [facility] Comment 10/29/2024 7:28 AM EDT [facility] Comment: ACT performed by staff [...] RESULTS Final Result [facility] [address] LAB [address] [place] [address] * Type and Screen (10/17/2024 7:19 AM EDT) Pathologist [facility] ABO/Rh A Negative 10/17/2024 7:04 AM EDT BLOOD BANK Antibody Screen Negative 10/17/2024 7:04 AM EDT BLOOD BANK Specimen Expiration 10/20/2024 23:59 10/17/2024 7:04 AM EDT BLOOD BANK Blood Venous blood specimen / Unknown Venipuncture / Unknown 10/17/2024 7:19 AM EDT 10/17/2024 7:28 AM EDT Maria Fernanda Mccallum MD LAB BLOOD BANK TEST ORDERAB LES Final Result Performing Organization Address [facility] Co de Phone Number BLOOD BANK [address] [place] [address] * (ABNORMAL) POCT glucose meter (10/17/2024 6:44 AM EDT) [facility] POCT Glucose 178(H) 74 - [...] 10/17/2024 6:49 AM EDT [facility] Professional Services Specialist ID Hunter Burroughs 10/18/19 6:49 AM EDT [facility] Device ID [id number] 10/17/2024 6:49 AM EDT [facility] Specimen Type POC Capillary 10/17/2024 6:49 AM EDT [facility] Blood Capillary blood specimen / Unknown 10/17/2024 6:44 AM EDT 10/17/2024 6:49 AM EDT us Terrell Gautam MD LAB POINT OF CARE TE ST DOCKED DEVICE UNSOLICITED RESULTS Final Result [facility] [address] [place] [address] documented in this encounter Visit Diagnoses Diagnosis [...] Intravenous, Every 4 hours PRN, Starting on Mon10/19/24 at 0418, Until 10/19/24 at 1439, Routine, [...] Reason: NPO)1610 (Given - Provider: Keisha Waller, RN - Comment: The patient is post [...] II, RN) 0809 (Given - Provider: Emilia Alonso RN)2001 [...] II, RN) 08 (Given - Provider: Emilia Alonso [...] documented as of this encounter Care Teams Barback Relationship Specialty Start Date End Date Asad Victor MD [address] [place] [id number] PCP - General 10/07/22 documented as of this encounter
--- OUTSIDE RECORDS SUMMARY | 2024-11-05 21:45 | XMS_ITS | Encounter Summary ---
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 specimen / Unknown 11/12/2024 5:08 PM EDT 11/12/2024 5:10 PM EDT Nathaly Nowak MD LAB POINT OF CARE TE ST DOCKED DEVICE UNSOLICITED RESULTS Final Result [facility] [address] [place] [address] * (ABNORMAL) POCT glucose meter (11/12/2024 12:36 PM EDT) [facility] POCT Glucose 224(H) 74 - 99 mg/dL [...] 11/12/2024 12:38 PM EDT [facility] Crosstie Inspector ID Wade Feliciano 12:38 PM EDT [facility] Device ID [id number] 11/12/2024 12:38 PM EDT [facility] Specimen Type POC Capillary 11/12/2024 12:38 PM EDT [facility] Blood Capillary blood specimen / Unknown 11/12/2024 12:36 PM EDT 11/12/2024 12:38 PM EDT Nathaly Nowak MD LAB POINT OF CARE TE ST DOCKED DEVICE UNSOLICITED RESULTS Final Result Performing Organization Address City/[facility]/ZIP Co de Phone Number [facility] [address] [place] [address] * Clostridiodes (Clostridium) difficile PCR (11/12/2024 9:50 AM EDT) C difficile PCR toxin B gene DNA Result Not Detected Not Detected 11/12/2024 11:54 AM EDT [facility] Stool Rectum structure / Unknown Non-blood Collection [...] MICROBIOLOGY - GENERAL ATIYA FRITZ Final Result [facility] [address] [place] [address] * Comprehensive GI Panel by PCR (11/12/2024 [...] indicated. Nathaly Nowak MD LAB MICROBIOLOGY - [facility] Final Result [facility] [address] [place] [address] * C-reactive protein (11/12/2024 9:48 AM EDT) [...] disease risk order high sensitivity CRP (CRPH). aNthaly Nowak MD LAB BLOOD ORDERABLES Final Resu lt Performing Organization Address City/[facility]/ZIP Co de Phone Number [facility] [address] [place] [address] * (ABNORMAL) POCT glucose meter (11/12/2024 8:20 AM EDT) [facility] POCT Glucose 138(H) 74 - 99 mg/dL [...] Comment 11/12/2024 8:21 AM EDT [facility] Crosstie Inspector ID Wade Feliciano 8:21 AM EDT [facility] Device ID [id number] 11/12/2024 8:21 AM EDT [facility] Specimen Type POC Capillary 11/12/2024 8:21 AM EDT [facility] Blood Capillary blood specimen / Unknown 11/12/2024 8:20 AM EDT 11/12/2024 8:21 AM EDT Nathaly Nowak MD LAB POINT OF CARE TE ST DOCKED DEVICE UNSOLICITED RESULTS Final Result Performing Organization Address [facility] Co de Phone Number [facility] [address] [place] [address] * (ABNORMAL) POCT glucose meter (11/11/2024 8:18 PM EDT) [facility] POCT Glucose 248(H) 74 - 99 mg/dL [...] 11/11/2024 8:20 PM EDT [facility] Crosstie Inspector ID Nelda Gerber 11/12/19 8:20 PM EDT [facility]ARE LAB Device ID [id number] 11/11/2024 8:20 PM EDT [facility] Specimen Type POC Capillary 11/11/2024 8:20 PM EDT [facility] Blood Capillary blood specimen / Unknown 11/11/2024 8:18 PM EDT 11/11/2024 8:20 PM EDT Nathaly Nowak MD LAB POINT OF CARE TE ST DOCKED DEVICE UNSOLICITED RESULTS Final Result Performing Organization Address City/[facility]/ZIP Co de Phone Number [facility] [address] [place] [address] * (ABNORMAL) POCT glucose meter (11/11/2024 5:59 PM EDT) [facility] POCT Glucose 147(H) 74 - 99 mg/dL [...] 11/11/2024 6:01 PM EDT [facility] Crosstie Inspector ID Wade Feliciano 6:01 PM EDT [facility] Device ID [id number] 11/11/2024 6:01 PM EDT [facility] Specimen Type POC Capillary 11/11/2024 6:01 PM EDT [facility] Blood Capillary blood specimen / Unknown 11/11/2024 5:59 PM EDT 11/11/2024 6:01 PM EDT Nathaly Nowak MD LAB POINT OF CARE TE ST DOCKED DEVICE UNSOLICITED RESULTS Final Result Performing Organization Address City/[facility]/ZIP Co de Phone Number [facility] [address] [place] [address] * POCT glucose meter (11/11/2024 5:20 PM EDT) [facility] POCT Glucose 84 74 - 99 mg/dL 11/11/2024 5:22 PM EDT [facility] Comment:Accuracy of a [...] Comment 11/11/2024 5:22 PM EDT [facility] Crosstie Inspector ID Wade Feliciano 5:22 PM EDT [facility] LAB Device ID [id number] 11/11/2024 5:22 PM EDT [facility] Specimen Type POC Capillary 11/11/2024 5:22 PM EDT [facility] Blood Capillary blood specimen / Unknown 11/11/2024 5:20 PM EDT 11/11/2024 5:22 PM EDT us Nathaly Nowak MD LAB POINT OF CARE TE ST DOCKED DEVICE UNSOLICITED RESULTS Final Result Performing Organization Address City/State/[facility] Co de Phone Number [facility] [address] [place] [address] * [place] NEGATIVE PRESSURE WOUND THERAPY DME >50 SQ CM (11/11/2024 2:00 PM EDT) Narrative Neil sIaac MD - 11/11/2024 2:00 PM EDT Neil [...] glucose meter (11/11/2024 12:08 PM EDT) Pathologist [facility] POCT Glucose 226(H) 74 - 99 mg/dL [...] Comment 11/11/2024 12:10 PM EDT [facility] Crosstie Inspector ID Wade Feliciano 12:10 PM EDT [facility] LAB Device ID [id number] 11/11/2024 12:10 PM EDT [facility] Specimen Type POC Capillary 11/11/2024 12:10 PM EDT [facility] Blood Capillary blood specimen / Unknown 11/11/2024 12:08 PM EDT 11/11/2024 12:10 PM EDT us Nathaly Nowak MD LAB POINT OF CARE TE ST DOCKED DEVICE UNSOLICITED RESULTS Final Result Performing Organization Address City/State/[facility] Co de Phone Number [facility] [address] [place] [address] * (ABNORMAL) POCT glucose meter (11/11/2024 9:08 AM EDT) Pathologist [facility] POCT Glucose 162(H) 74 - 99 mg/dL [...] 11/11/2024 9:09 AM EDT [facility] Crosstie Inspector ID Wade Feliciano 9:09 AM EDT [facility] Device ID [id number] 11/11/2024 9:09 AM EDT [facility] Specimen Type POC Capillary 11/11/2024 9:09 AM EDT [facility] Blood Capillary blood specimen / Unknown 11/11/2024 9:08 AM EDT 11/11/2024 9:09 AM EDT Nathaly Nowak MD LAB POINT OF CARE TE ST DOCKED DEVICE UNSOLICITED RESULTS Final Result Performing Organization Address City/[facility] Co de Phone Number [facility] [address] [place] [address] * POCT glucose meter (11/11/2024 8:27 AM EDT) POCT Glucose 87 74 - 99 mg/dL 11/11/2024 8:28 AM EDT [facility] Comment:Accuracy of a glucos e result [...] for testing. Comment 11/11/2024 8:28 AM EDT [facility] Crosstie Inspector ID Wade Feliciano 8:28 AM EDT [facility] Device ID [id number] 11/11/2024 8:28 AM EDT [facility] Specimen Type POC Capillary 11/11/2024 8:28 AM EDT [facility] Blood Capillary blood specimen / Unknown 11/11/2024 8:27 AM EDT 11/11/2024 8:28 AM EDT Nathaly Nowak MD LAB POINT OF CARE TE ST DOCKED DEVICE UNSOLICITED RESULTS Final Result Performing Organization Address City/[facility]/ZIP Co de Phone Number [facility] [address] [place] [address] * (ABNORMAL) Basic Metabolic Panel, Plasma (11/11/2024 [...] lt [facility] [address] [place] [address] * (ABNORMAL) CBC W/O Differential (11/11/2024 12:56 [...] Resu lt [facility] [address] [place] [address] * (ABNORMAL) POCT glucose meter (11/10/2024 8:25 PM EDT) POCT Glucose 144(H) 74 - 99 mg/dL 11/10/2024 8:28 PM EDT [facility] Comment:Accuracy of a glucos e [...] Comment 11/10/2024 8:28 PM EDT [facility] Crosstie Inspector ID Nelda Gerber 11/11/19 8:28 PM EDT [facility]ARE LAB Device ID [id number] 11/10/2024 8:28 PM EDT [facility] Specimen Type POC Capillary 11/10/2024 8:28 PM EDT [facility] Blood Capillary blood specimen / Unknown 11/10/2024 8:25 PM EDT 11/10/2024 8:28 PM EDT us Nathaly Nowak MD LAB POINT OF CARE TE ST DOCKED DEVICE UNSOLICITED RESULTS Final Result Performing Organization Address City/[facility]/ZIP Co de Phone Number [facility] [address] [place] [address] * (ABNORMAL) POCT glucose meter (11/10/2024 4:45 PM EDT) [facility] POCT Glucose 155(H) 74 - 99 mg/dL 11/10/2024 4:47 PM EDT [facility] Comment:Accuracy of a [...] Comment 11/10/2024 4:47 PM EDT [facility] Crosstie Inspector ID Esperanza Parks 11/10/2024 4:47 PM EDT [facility]ARE LAB Device ID [id number] 11/10/2024 4:47 PM EDT [facility] Specimen Type POC Capillary 11/10/2024 4:47 PM EDT [facility] Blood Capillary blood specimen / Unknown 11/10/2024 4:45 PM EDT 11/10/2024 4:47 PM EDT us Nathaly Nowak MD LAB POINT OF CARE TE ST DOCKED DEVICE UNSOLICITED RESULTS Final Result [facility] [address] [place] [address] * (ABNORMAL) POCT glucose meter (11/10/2024 12:13 [...] Comment 11/10/2024 12:14 PM EDT [facility] Crosstie Inspector ID Esperanza Parks 11/10/2024 12:14 PM EDT [facility]ARE [facility] Device ID [id number] 11/10/2024 12:14 PM EDT [facility] Specimen Type POC Capillary 11/10/2024 12:14 PM EDT [facility] Blood Capillary blood specimen / Unknown 11/10/2024 12:13 PM EDT 11/10/2024 12:14 PM EDT Nathaly Nowak MD LAB POINT OF CARE TE ST DOCKED DEVICE UNSOLICITED RESULTS Final Result [facility] [address] [place] [address] * Vancomycin, Peak, Plasma Please draw ~2 [...] ORDERABLES Final Res ult Performing Organization Address [facility] Co de Phone Number [facility] [address] [place] [address] * (ABNORMAL) POCT glucose meter (11/10/2024 8:03 [...] for testing. Comment 11/10/2024 8:04 AM EDT [facility] Crosstie Inspector ID Esperanza Parks 11/10/2024 8:04 AM EDT [facility] Device ID [id number] 11/10/2024 8:04 AM EDT [facility] Specimen Type POC Capillary 11/10/2024 8:04 AM EDT [facility] Blood Capillary blood specimen / Unknown 11/10/2024 8:03 AM EDT 11/10/2024 8:04 AM EDT us Nathaly Nowak MD LAB POINT OF CARE TE ST DOCKED DEVICE UNSOLICITED RESULTS Final Result Performing Organization Address [facility] Co de Phone Number [facility] [address] [place] [address] * Vancomycin, Trough, Plasma Please draw ~30 [...] ult [facility] [address] [place] [address] * (ABNORMAL) CBC and Differential (11/10/2024 12:31 [...] absolute values, rather than percentages. us Nathaly oNwak MD LAB BLOOD ORDERABLES Final Resu lt [facility] [address] [place] [address] * (ABNORMAL) Comprehensive Metabolic Panel, Plasma (11/10/2024 [...] lt [facility] [address] [place] [address] * (ABNORMAL) POCT glucose meter (11/09/2024 8:04 [...] Comment 11/09/2024 8:06 PM EDT [facility]ARE [facility] Crosstie Inspector ID Maximiliano Hansen II 11/09/2024 8:06 PM EDT [facility]ARE LAB Device ID [id number] 11/09/2024 8:06 PM EDT [facility] Specimen Type POC Capillary 11/09/2024 8:06 PM EDT [facility] Blood Capillary blood specimen / Unknown 11/09/2024 8:04 PM EDT 11/09/2024 8:06 PM EDT Nathaly Nowak MD LAB POINT OF CARE TE ST DOCKED DEVICE UNSOLICITED RESULTS Final Result Performing Organization Address [facility] de Phone Number [facility]ALTH[facility]ARE [facility] [address] [place] [address] * (ABNORMAL) POCT glucose meter (11/09/2024 4:36 PM EDT) [facility] POCT Glucose 166(H) 74 - 99 mg/dL [...] Comment 11/09/2024 4:38 PM EDT [facility] Crosstie Inspector ID Kristian Sosa 11/09/2024 4:38 PM EDT [facility] LAB Device ID [id number] 11/09/2024 4:38 PM EDT [facility] Specimen Type POC Capillary 11/09/2024 4:38 PM EDT [facility] Blood Capillary blood specimen / Unknown 11/09/2024 4:36 PM EDT 11/09/2024 4:38 PM EDT Nathaly Nowak MD LAB POINT OF CARE TE ST DOCKED DEVICE UNSOLICITED RESULTS Final Result Performing Organization Address [facility] de Phone Number [facility] [address] [place] [address] * PICC SINGLE LUMEN (SMART[employer] LINK) (11/09/2024 1:11 PM EDT) Narrative Estefani Barraza RN - 11/09/2024 1:11 PM EDT Estefani Barraza RN 11/09/2024 1:12 PM Insert PICC line Date/Time: 11/09/2024 1:11 PM Performed by: Estefani Barraza RN Authorized by: Nathaly Nowak MD [place] Protocol: Verbal consent obtained?: Yes Written consent [...] selection rationale: Left pacemaker Catheter Lot #: [id number] 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[employer] Catheter placed: Single lumen Catheter size: 4 Fr Catheter trimmed length: 42 Catheter threaded length: 42 Vein placed in: SVC Catheter cm indwellin Catheter cm outside: 0 Placement confirmed by: [employer] 3CG technology Pre-procedure: Landmarks identified Ultrasound guidance: [...] - 99 mg/dL 11/09/2024 11:51 AM EDT [facility] Comment:Accuracy of a glucos e result [...] Comment 11/09/2024 11:51 AM EDT [facility]ALTH[facility]ARE [facility] Crosstie Inspector ID Kristian Sosa 11/09/2024 11:51 AM EDT HEALTH[facility]ARE LAB Device ID [id number] 11/09/2024 11:51 AM EDT [facility]ARE [facility] Specimen Type POC Capillary 11/09/2024 11:51 AM EDT [facility] Blood Capillary blood specimen / Unknown 11/09/2024 11:50 AM EDT 11/09/2024 11:51 AM EDT Nathaly Nowak MD LAB POINT OF CARE TE ST DOCKED DEVICE UNSOLICITED RESULTS Final Result Performing Organization Address City/[facility]/ZIP Co de Phone Number [facility]ARE [facility] [address] [place] [address] * (ABNORMAL) POCT glucose meter (11/09/2024 8:14 AM EDT) [facility] Signature POCT Glucose 153(H) 74 - 99 mg/dL [...] Comment 11/09/2024 8:15 AM EDT [facility]ALTH[facility]ARE [facility] Crosstie Inspector ID Kristian Sosa 11/09/2024 8:15 AM EDT [facility]ALTH[facility]ARE LAB Device ID [id number] 11/09/2024 8:15 AM EDT [facility] Specimen Type POC Capillary 11/09/2024 8:15 AM EDT [facility] Blood Capillary blood specimen / Unknown 11/09/2024 8:14 AM EDT 11/09/2024 8:15 AM EDT Nathaly Nowak MD LAB POINT OF CARE TE ST DOCKED DEVICE UNSOLICITED RESULTS Final Result Performing Organization Address City/[facility]/ZIP Co de Phone Number [facility] [address] [place] [address] * (ABNORMAL) CBC and Differential (11/09/2024 4:15 AM EDT) [facility] Signature WBC Count 10.27 3.70 - 10.30 [...] Resu lt [facility] [address] [place] [address] * (ABNORMAL) Comprehensive Metabolic Panel, Plasma (11/09/2024 4:15 AM EDT) Pathologist [facility] Glucose, Plasma 171(H) 74 - 99 mg/dL [...] ORDERABLES Final Resu lt Performing Organization Address City/[facility]/ZIP Co de Phone Number [facility] [address] [place] [address] * (ABNORMAL) POCT glucose meter (11/09/2024 3:30 [...] Comment 11/09/2024 3:31 AM EDT [facility] Crosstie Inspector ID Maximiliano Hansen II 11/09/2024 3:31 AM EDT [facility]ALTH[facility]ARE LAB Device ID [id number] 11/09/2024 3:31 AM EDT [facility] Specimen Type POC Capillary 11/09/2024 3:31 AM EDT [facility] Blood Capillary blood specimen / Unknown 11/09/2024 3:30 AM EDT 11/09/2024 3:31 AM EDT Nathaly Nowak MD LAB POINT OF CARE TE ST DOCKED DEVICE UNSOLICITED RESULTS Final Result Performing Organization Address City/[facility]/ZIP Co de Phone Number [facility] [address] [place] [address] * (ABNORMAL) POCT glucose meter (11/08/2024 7:21 [...] Comment 11/08/2024 7:22 PM EDT [facility] Crosstie Inspector ID Maximiliano Hansen II 11/08/2024 7:22 PM EDT [facility] LAB Device ID [id number] 11/08/2024 7:22 PM EDT [facility] Specimen Type POC Capillary 11/08/2024 7:22 PM EDT [facility] Blood Capillary blood specimen / Unknown 11/08/2024 7:21 PM EDT 11/08/2024 7:22 PM EDT Nathaly Nowak MD LAB POINT OF CARE TE ST DOCKED DEVICE UNSOLICITED RESULTS Final Result Performing Organization Address City/State/[facility] Co de Phone Number [facility] [address] [place] [address] * (ABNORMAL) POCT glucose meter (11/08/2024 5:12 [...] Comment 11/08/2024 5:14 PM EDT [facility]ARE [facility] Crosstie Inspector ID Estefani Sheth 11/08/2024 5:14 PM EDT HEALTH[facility]ARE LAB Device ID [id number] 11/08/2024 5:14 PM EDT [facility] Specimen Type POC Capillary 11/08/2024 5:14 PM EDT [facility] Blood Capillary blood specimen / Unknown 11/08/2024 5:12 PM EDT 11/08/2024 5:14 PM EDT Nathaly Nowak MD LAB POINT OF CARE TE ST DOCKED DEVICE UNSOLICITED RESULTS Final Result Performing Organization Address City/[facility] Co de Phone Number [facility] [address] [place] [address] * (ABNORMAL) POCT glucose meter (11/08/2024 12:03 PM EDT) [facility] POCT Glucose 191(H) 74 - 99 mg/dL [...] for testing. Comment 11/08/2024 12:05 PM EDT [facility] Crosstie Inspector ID Estefani Sheth 11/08/2024 12:05 PM EDT [facility] Device ID [id number] 11/08/2024 12:05 PM EDT [facility] Specimen Type POC Capillary 11/08/2024 12:05 PM EDT [facility] Blood Capillary blood specimen / Unknown 11/08/2024 12:03 PM EDT 11/08/2024 12:05 PM EDT Nathaly Nowak MD LAB POINT OF CARE TE ST DOCKED DEVICE UNSOLICITED RESULTS Final Result Performing Organization Address City/[facility] Co de Phone Number [facility] [address] [place] [address] * Vancomycin, Peak, Plasma Please draw ~2 hours after 11/08 0600 dose of vancomycin finishes infusing.Consider obtaining level via peripheral stick. If peripheral stick is not feasible, please ensure that line is flushed well prior to drawing level.... (11/08/2024 9:24 AM EDT) Pathologist [facility] Vancomycin, Peak, Plasma 29.1 20.0 - 40.0 [...] ORDERABLES Final Resu lt Performing Organization Address City/[facility]/ZIP Co de Phone Number [facility] [address] [place] [address] * (ABNORMAL) POCT glucose meter (11/08/2024 8:00 AM EDT) Pathologist [facility] POCT Glucose 150(H) 74 - 99 mg/dL [...] Comment 11/08/2024 8:01 AM EDT [facility] Crosstie Inspector ID Estefani Sheth L 11/08/2024 8:01 AM EDT [facility]ALTH[facility]ARE LAB Device ID [id number] 11/08/2024 8:01 AM EDT [facility] Specimen Type POC Capillary 11/08/2024 8:01 AM EDT [facility] Blood Capillary blood specimen / Unknown 11/08/2024 8:00 AM EDT 11/08/2024 8:01 AM EDT us Nathaly Nowak MD LAB POINT OF CARE TE ST DOCKED DEVICE UNSOLICITED RESULTS Final Result Performing Organization Address City/[facility]/ZIP Co de Phone Number [facility] [address] [place] [address] * (ABNORMAL) CBC and Differential (11/08/2024 4:39 [...] Resu lt [facility] [address] [place] [address] * (ABNORMAL) Comprehensive Metabolic Panel, Plasma (11/08/2024 [...] BLOOD ORDERABLES Final Resu Performing Organization Address [facility] [place] [address] * Vancomycin, Trough, Plasma Please draw ~30 minutes prior to dose due at 0600 on 11/08. Please do NOThold dose awaiting level to return. Consider obtaining level via peripheral stick. If peripheral stick is not feasible, please ensure that line is... (11/08/2024 4:39 AM EDT) [facility] Vancomycin, Trough, Plasma 18.7 10.0 - 20.0 ug/mL 11/08/2024 5:22 AM EDT [facility] Blood Venous blood specimen / Unknown Venipuncture / Unknown 11/08/2024 4:39 AM EDT 11/08/2024 4:43 AM EDT Narrative [facility] - 11/08/2024 5:22 AM EDT Therapeutic Trough level: 10-20ug/mL Supra-therapeutic Trough level: >20 ug/mL Nathaly Nowak MD LAB BLOOD ORDERABLES [facility] Per[facility] Organization Address [facility] Phone Number [facility] [address] [place] [address] * (ABNORMAL) POCT glucose meter (11/07/2024 7:26 PM EDT) [facility] POCT Glucose 172(H) 74 - 99 mg/dL 11/07/2024 7:28 PM EDT [facility] Comment:Accuracy of a glucos e result [...] 11/07/2024 7:28 PM EDT [facility] Crosstie Inspector ID Hansen Maximiliano WALTERS 11/07/2024 7:28 PM EDT [facility] Device ID [id number] 11/07/2024 7:28 PM EDT [facility] Specimen Type POC Capillary 11/07/2024 7:28 PM EDT [facility] Blood Capillary blood specimen / Unknown 11/07/2024 7:26 PM EDT 11/07/2024 7:28 PM EDT Nathaly Nowak MD LAB POINT OF CARE TE ST DOCKED DEVICE UNSOLICITED RESULTS Final Result Performing Organization Address City/[facility]/ZIP Co de Phone Number [facility]ALTHCARE [facility] [address] [place] [address] * (ABNORMAL) POCT glucose meter (11/07/2024 5:51 [...] Comment 11/07/2024 5:52 PM EDT [facility] Crosstie Inspector ID Brigitte Castellon 11/07/2024 5:52 PM EDT [facility] Device ID [id number] 11/07/2024 5:52 PM EDT [facility] Specimen Type POC Capillary 11/07/2024 5:52 PM EDT [facility] Blood Capillary blood specimen / Unknown 11/07/2024 5:51 PM EDT 11/07/2024 5:52 PM EDT Nathaly Nowak MD LAB POINT OF CARE TE ST DOCKED DEVICE UNSOLICITED RESULTS Final Result [facility] [address] [place] [address] * (ABNORMAL) POCT glucose meter (11/07/2024 4:47 [...] 11/07/2024 4:48 PM EDT [facility] Crosstie Inspector ID Estefani Sheth 11/07/2024 4:48 PM EDT [facility] Device ID [id number] 11/07/2024 4:48 PM EDT [facility] Specimen Type POC Capillary 11/07/2024 4:48 PM EDT [facility] Blood Capillary blood specimen / Unknown 11/07/2024 4:47 PM EDT 11/07/2024 4:48 PM EDT us Nathaly Nowak MD LAB POINT OF CARE TE ST DOCKED DEVICE UNSOLICITED RESULTS Final Result Performing Organization Address City/State/[facility] Co de Phone Number [facility] [address] [place] [address] * (ABNORMAL) POCT glucose meter (11/07/2024 12:22 PM EDT) [facility] POCT Glucose 172(H) 74 - 99 mg/dL [...] 11/07/2024 12:24 PM EDT [facility] Crosstie Inspector ID Estefani Sheth 11/07/2024 12:24 PM EDT [facility] Device ID [id number] 11/07/2024 12:24 PM EDT [facility] Specimen Type POC Capillary 11/07/2024 12:24 PM EDT [facility] Blood Capillary blood specimen / Unknown 11/07/2024 12:22 PM EDT 11/07/2024 12:24 PM EDT us Nathaly Nowak MD LAB POINT OF CARE TE ST DOCKED DEVICE UNSOLICITED RESULTS Final Result [facility] [address] [place] [address] * (ABNORMAL) CBC and Differential (11/07/2024 11:37 [...] Resu lt [facility] [address] [place] [address] * (ABNORMAL) Comprehensive Metabolic Panel, Plasma (11/07/2024 11:37 AM EDT) [facility] Glucose, Plasma 173(H) 74 - 99 mg/dL 11/07/2024 1:31 PM EDT [facility] BUN, Plasma 13 8 - 23 mg/dL 11/07/2024 1:31 PM EDT [facility] Creatinine, Plasma 0.92 0.70 - 1.20 mg/dL 11/07/2024 1:31 PM EDT [facility] BUN/Creatinine Ratio 11/07/2024 1:31 PM EDT [facility] [...] ORDERABLES Final Resu lt Performing Organization Address [facility] Co de Phone Number [facility] [address] [place] [address] * Type and Screen (11/07/2024 11:37 AM [...] ORDERABLES F inal Result Performing Organization Address [facility] de Phone Number BLOOD BANK [address] [place] [address], * (ABNORMAL) POCT glucose meter (11/07/2024 10:34 AM EDT) POCT Glucose 199(H) 74 - 99 mg/dL 11/07/2024 10:36 AM ED[facility] Comment:Accuracy of a glucos e result [...] Comment 11/07/2024 10:36 AM EDT [facility]ALTH[facility]ARE [facility] Crosstie Inspector ID Joy Iraheta 11/07/2024 10:36 AM EDT [facility] LAB Device ID [id number] 11/07/2024 10:36 AM EDT [facility] LAB Specimen Type POC Capillary 11/07/2024 10:36 AM EDT [facility] Blood Capillary blood specimen / Unknown 11/07/2024 10:34 AM EDT 11/07/2024 10:36 AM EDT Nathaly Nowak MD LAB POINT OF CARE TE ST DOCKED DEVICE UNSOLICITED RESULTS Final Result Performing Organization Address [facility] Co de Phone Number [facility]ALTHCARE LAB [address] [place] [address] * (ABNORMAL) POCT glucose meter (11/07/2024 9:34 [...] Comment 11/07/2024 9:36 AM EDT [facility] Crosstie Inspector ID Brigitte Castellon 11/07/2024 9:36 AM EDT [facility]ARE LAB Device ID [id number] 11/07/2024 9:36 AM EDT [facility] Specimen Type POC Capillary 11/07/2024 9:36 AM EDT [facility] Blood Capillary blood specimen / Unknown 11/07/2024 9:34 AM EDT 11/07/2024 9:36 AM EDT Nathaly Nowak MD LAB POINT OF CARE TE ST DOCKED DEVICE UNSOLICITED RESULTS Final Result Performing Organization Address City/[facility]/ZIP Co de Phone Number [facility]ALTHCARE [facility] [address] [place] [address] * (ABNORMAL) POCT glucose meter (11/07/2024 8:20 AM EDT) [facility] POCT Glucose 137(H) 74 - 99 mg/dL [...] Comment 11/07/2024 8:22 AM EDT [facility]ALTH[facility]ARE [facility] Crosstie Inspector ID Estefani Sheth Chris 11/07/2024 8:22 AM EDT [facility] Device ID [id number] 11/07/2024 8:22 AM EDT [facility] Specimen Type POC Capillary 11/07/2024 8:22 AM EDT [facility] Blood Capillary blood specimen / Unknown 11/07/2024 8:20 AM EDT 11/07/2024 8:22 AM EDT Nathaly Nowak MD LAB POINT OF CARE TE ST DOCKED DEVICE UNSOLICITED RESULTS Final Result [facility] [address] [place] [address] * (ABNORMAL) POCT glucose meter (11/07/2024 7:21 AM EDT) [facility] POCT Glucose 151(H) 74 - 99 mg/dL [...] 11/07/2024 7:22 AM EDT [facility] Crosstie Inspector ID Tom BeanBrigitte 11/07/2024 7:22 AM EDT [facility] Device ID [id number] 11/07/2024 7:22 AM EDT [facility]ALTH[facility]ARE LAB Specimen Type POC Capillary 11/07/2024 7:22 AM EDT [facility] Blood Capillary blood specimen / Unknown 11/07/2024 7:21 AM EDT 11/07/2024 7:22 AM EDT Nathaly Nowak MD LAB POINT OF CARE TE ST DOCKED DEVICE UNSOLICITED RESULTS Final Result Performing Organization Address City/[facility]/ZIP Co de Phone Number [facility]ALTH[facility]ARE [facility] [address] [place] [address] * (ABNORMAL) POCT glucose meter (11/07/2024 6:25 [...] Comment 11/07/2024 6:27 AM EDT [facility]ARE [facility] Crosstie Inspector ID Nelda Gerber 11/08/19 6:27 AM EDT [facility]ARE [facility] Device ID [id number] 11/07/2024 6:27 AM EDT [facility]ARE [facility] Specimen Type POC Capillary 11/07/2024 6:27 AM EDT [facility] Blood Capillary blood specimen / Unknown 11/07/2024 6:25 AM EDT 11/07/2024 6:27 AM EDT us Nathaly Nowak MD LAB POINT OF CARE TE ST DOCKED DEVICE UNSOLICITED RESULTS Final Result Performing Organization Address City/[facility] Co de Phone Number [facility]ARE [facility] [address] [place] [address] * (ABNORMAL) POCT glucose meter (11/07/2024 5:03 [...] Comment 11/07/2024 5:08 AM EDT [facility] Crosstie Inspector ID Nelda Gerber 11/08/19 5:08 AM EDT [facility] LAB Device ID [id number] 11/07/2024 5:08 AM EDT [facility]ARE LAB Specimen Type POC Capillary 11/07/2024 5:08 AM EDT [facility] Blood Capillary blood specimen / Unknown 11/07/2024 5:03 AM EDT 11/07/2024 5:08 AM EDT Nathaly Nowak MD LAB POINT OF CARE TE ST DOCKED DEVICE UNSOLICITED RESULTS Final Result Performing Organization Address City/State/[facility] Co de Phone Number [facility] [address] [place] [address] * (ABNORMAL) POCT glucose meter (11/07/2024 4:16 AM EDT) [facility] POCT Glucose 142(H) 74 - 99 [...] for testing. Comment 11/07/2024 4:18 AM EDT HEALTHCARE [facility] Crosstie Inspector ID Nelda Gerber 11/08/19 4:18 AM EDT [facility]ALTH[facility]ARE LAB Device ID [id number] 11/07/2024 4:18 AM EDT [facility]ARE LAB Specimen Type POC Capillary 11/07/2024 4:18 AM EDT [facility] Blood Capillary blood specimen / Unknown 11/07/2024 4:16 AM EDT 11/07/2024 4:18 AM EDT Nathaly Nowak MD LAB POINT OF CARE TE ST DOCKED DEVICE UNSOLICITED RESULTS Final Result Performing Organization Address [facility] Co de Phone Number HEALTH[facility]ARE [facility] [address] [place] [address] * (ABNORMAL) POCT glucose meter (11/07/2024 3:21 [...] for testing. Comment 11/07/2024 3:23 AM EDT [facility] Crosstie Inspector ID Nelda Gerber 11/08/19 3:23 AM EDT HEALTHCARE LAB Device ID [id number] 11/07/2024 3:23 AM EDT [facility] Specimen Type POC Capillary 11/07/2024 3:23 AM EDT [facility] Blood Capillary blood specimen / Unknown 11/07/2024 3:21 AM EDT 11/07/2024 3:23 AM EDT Nathaly Nowak MD LAB POINT OF CARE TE ST DOCKED DEVICE UNSOLICITED RESULTS Final Result Performing Organization Address City/[facility] Co de Phone Number HEALTHCARE LAB [address] [place] [address] * (ABNORMAL) POCT glucose meter (11/07/2024 2:10 AM EDT) Pathologist [facility] POCT Glucose 146(H) 74 - 99 mg/dL [...] 11/07/2024 2:12 AM EDT [facility] Crosstie Inspector ID Nelda Gerber 11/08/19 2:12 AM EDT HEALTHCARE LAB Device ID [id number] 11/07/2024 2:12 AM EDT [facility]ALTH[facility]ARE LAB Specimen Type POC Capillary 11/07/2024 2:12 AM EDT [facility] Blood Capillary blood specimen / Unknown 11/07/2024 2:10 AM EDT 11/07/2024 2:12 AM EDT Nathaly Nowak MD LAB POINT OF CARE TE ST DOCKED DEVICE UNSOLICITED RESULTS Final Result Performing Organization Address City/[facility] de Phone Number HEALTHCARE LAB [address] [place] [address] * (ABNORMAL) POCT glucose meter (11/07/2024 1:08 [...] Comment 11/07/2024 1:10 AM EDT [facility]ALTHCARE [facility] Crosstie Inspector ID Nelda Gerber 11/08/19 1:10 AM EDT [facility]ALTHCARE LAB Device ID [id number] 11/07/2024 1:10 AM EDT [facility]ALTH[facility]ARE LAB Specimen Type POC Capillary 11/07/2024 1:10 AM EDT [facility] Blood Capillary blood specimen / Unknown 11/07/2024 1:08 AM EDT 11/07/2024 1:10 AM EDT Nathaly Nowak MD LAB POINT OF CARE TE ST DOCKED DEVICE UNSOLICITED RESULTS Final Result Performing Organization Address City/[facility]/ZIP Co de Phone Number [facility]ARE [facility] [address] [place] [address] * (ABNORMAL) POCT glucose meter (11/07/2024 12:10 AM EDT) [facility] POCT Glucose 127(H) 74 - 99 mg/dL [...] for testing. Comment 11/07/2024 12:13 AM EDT [facility] Crosstie Inspector ID Nelda Gerber 11/08/19 12:13 AM EDT [facility] Device ID [id number] 11/07/2024 12:13 AM EDT HEALTHCARE LAB Specimen Type POC Capillary 11/07/2024 12:13 AM EDT [facility] Blood Capillary blood specimen / Unknown 11/07/2024 12:10 AM EDT 11/07/2024 12:13 AM EDT Nathaly Nowak MD LAB POINT OF CARE TE ST DOCKED DEVICE UNSOLICITED RESULTS Final Result [facility] [address] [place] [address] * (ABNORMAL) POCT glucose meter (11/06/2024 11:14 PM EDT) [facility] POCT Glucose 71(L) 74 - 99 mg/dL [...] 11/06/2024 11:16 PM EDT [facility] Crosstie Inspector ID Nelda Gerber 11/07/19 11:16 PM EDT [facility] Device ID [id number] 11/06/2024 11:16 PM EDT [facility] Specimen Type POC Capillary 11/06/2024 11:16 PM EDT [facility] Blood Capillary blood specimen / Unknown 11/06/2024 11:14 PM EDT 11/06/2024 11:16 PM EDT Nathaly Nowak MD LAB POINT OF CARE TE ST DOCKED DEVICE UNSOLICITED RESULTS Final Result Performing Organization Address City/[facility]/ZIP Co de Phone Number [facility]ARE [facility] [address] [place] [address] * (ABNORMAL) POCT glucose meter (11/06/2024 10:07 [...] Comment 11/06/2024 10:09 PM EDT [facility]ARE [facility] Crosstie Inspector ID Nelda Gerber 11/07/19 10:09 PM EDT [facility] Device ID [id number] 11/06/2024 10:09 PM EDT [facility]ARE LAB Specimen Type POC Capillary 11/06/2024 10:09 PM EDT [facility] Blood Capillary blood specimen / Unknown 11/06/2024 10:07 PM EDT 11/06/2024 10:09 PM EDT us Nathaly Nowak MD LAB POINT OF CARE TE ST DOCKED DEVICE UNSOLICITED RESULTS Final Result [facility] [address] [place] [address] * (ABNORMAL) POCT glucose meter (11/06/2024 8:22 [...] 11/06/2024 8:25 PM EDT [facility] Crosstie Inspector ID Nelda Gerber 11/07/19 8:25 PM EDT [facility] Device ID [id number] 11/06/2024 8:25 PM EDT [facility] Specimen Type POC Capillary 11/06/2024 8:25 PM EDT [facility] Blood Capillary blood specimen / Unknown 11/06/2024 8:22 PM EDT 11/06/2024 8:25 PM EDT us Nathaly Nowak MD LAB POINT OF CARE TE ST DOCKED DEVICE UNSOLICITED RESULTS Final Result Performing Organization Address City/State/[facility] Co de Phone Number [facility]ARE LAB [address] [place] [address] * (ABNORMAL) POCT glucose meter (11/06/2024 7:31 PM EDT) [facility] POCT Glucose 359(H) 74 - 99 mg/dL [...] 11/06/2024 7:32 PM EDT [facility] Crosstie Inspector ID Nelda Gerber 11/07/19 7:32 PM EDT [facility] Device ID [id number] 11/06/2024 7:32 PM EDT [facility]ALTH[facility]ARE LAB Specimen Type POC Capillary 11/06/2024 7:32 PM EDT [facility] Blood Capillary blood specimen / Unknown 11/06/2024 7:31 PM EDT 11/06/2024 7:32 PM EDT Nathaly Nowak MD LAB POINT OF CARE TE ST DOCKED DEVICE UNSOLICITED RESULTS Final Result Performing Organization Address City/[facility] Co de Phone Number [facility]ALTH[facility]ARE LAB [address] [place] [address] * (ABNORMAL) POCT glucose meter (11/06/2024 6:15 [...] for testing. Comment 11/06/2024 6:17 PM EDT [facility] Crosstie Inspector ID Estefani Sheth 11/06/2024 6:17 PM EDT [facility] Device ID [id number] 11/06/2024 6:17 PM EDT [facility] Specimen Type POC Capillary 11/06/2024 6:17 PM EDT [facility] Blood Capillary blood specimen / Unknown 11/06/2024 6:15 PM EDT 11/06/2024 6:17 PM EDT Nathaly Nowak MD LAB POINT OF CARE TE ST DOCKED DEVICE UNSOLICITED RESULTS Final Result Performing Organization Address City/[facility] Co de Phone Number [facility]ARE [facility] [address] [place] [address] * (ABNORMAL) POCT glucose meter (11/06/2024 4:57 [...] Comment 11/06/2024 4:58 PM EDT [facility]ARE [facility] Crosstie Inspector ID Estefani Sheth 11/06/2024 4:58 PM EDT [facility] LAB Device ID [id number] 11/06/2024 4:58 PM EDT [facility] Specimen Type POC Capillary 11/06/2024 4:58 PM EDT [facility] Blood Capillary blood specimen / Unknown 11/06/2024 4:57 PM EDT 11/06/2024 4:58 PM EDT Nathaly Nowak MD LAB POINT OF CARE TE ST DOCKED DEVICE UNSOLICITED RESULTS Final Result Performing Organization Address [facility] Co de Phone Number [facility]ARE [facility] [address] [place] [address] * (ABNORMAL) POCT glucose meter (11/06/2024 2:08 [...] Comment 11/06/2024 2:09 PM EDT [facility]ALTH[facility] Crosstie Inspector ID Brigitte Castellon 11/06/2024 2:09 PM EDT [facility]ALTH[facility]ARE LAB Device ID [id number] 11/06/2024 2:09 PM EDT [facility]ARE [facility] Specimen Type POC Capillary 11/06/2024 2:09 PM EDT [facility] Blood Capillary blood specimen / Unknown 11/06/2024 2:08 PM EDT 11/06/2024 2:09 PM EDT Nathaly Nwoak MD LAB POINT OF CARE TE ST DOCKED DEVICE UNSOLICITED RESULTS Final Result Performing Organization Address City/[facility]/ZIP Co de Phone Number [facility]ARE [facility] [address] [place] [address] * (ABNORMAL) POCT glucose meter (11/06/2024 12:27 [...] Comment 11/06/2024 12:28 PM EDT [facility]ALTH[facility]ARE LAB Crosstie Inspector ID Jacinta Galloway 11/06/2024 12:28 PM EDT [facility]ALTH[facility]ARE LAB Device ID [id number] 11/06/2024 12:28 PM EDT [facility]ALTH[facility]ARE LAB Specimen Type POC Capillary 11/06/2024 12:28 PM EDT [facility] Blood Capillary blood specimen / Unknown 11/06/2024 12:27 PM EDT 11/06/2024 12:28 PM EDT us Nathaly Nowak MD LAB POINT OF CARE TE ST DOCKED DEVICE UNSOLICITED RESULTS Final Result Performing Organization Address City/State/[facility] Co de Phone Number HEALTHCARE LAB [address] [place] [address] * (ABNORMAL) Tissue Culture and Gram Stain (11/06/2024 11:34 AM EDT) [facility] Culture Moderate Growth 7:35 AM EDT [facility] Culture 2+ Enterobacter cloacae complex(A) ANGÉLICA 11/15/2024 7:35 AM EDT [facility] Comment: This isolate has been identified using the FDA Approved [employer] [place] System The organism value for this result has been updated. These results have been appended to the previously preliminary verified report. Edited result: Previously reported as Gram Negative Jesus on 11/07/2024 at 1434 EDT. Culture 2+ Streptococcus mitis/oralis group(A) ANGÉLICA 11/15/2024 7:35 AM EDT [facility] Comment: This isolate has been identified using the FDA Approved [employer] [place] System The organism value for this result has been updated. These results have been appended to the previously preliminary verified report. Culture 2+ Pasteurella stomatis(A) ANGÉLICA 11/15/2024 7:35 AM EDT [facility] Comment: This result was determined by MALDI tof mass spectrometry using the [employer] database and is for research use only. [...] GENERAL ORDAna FRITZ Edited Result - Final [facility] [address] [place] [address] * (ABNORMAL) Anaerobic Culture (11/06/2024 11:34 AM EDT) Culture No anaerobes isolated 11/14/2024 1:25 PM EDT [facility] Culture Staphylococcus pseudintermedius( A) 11/14/2024 1:25 PM EDT [facility] Comment: This result was determined by MALDI tof mass spectrometry using the [employer] database and is for research use only. [...] GENERAL ORDAna FRITZ Edited Result - Final [facility] [address] [place] [address] * (ABNORMAL) Routine Culture and Gram Stain (11/06/2024 11:29 AM EDT) Culture Moderate Growth 5:29 PM EDT [facility] Culture Enterobacter cloacae complex(A) 11/08/2024 5:29 PM EDT [facility] Comment: This isolate has been identified using the FDA Approved [employer] [place] System For susceptibility results refer to: - [id number] The organism value for this result has [...] ORDE RABONEIDA Final Result Performing Organization Address [facility] Co de Phone Number [facility] [address] [place] [address] * Fungal Culture, Routine (11/06/2024 11:29 AM EDT) Culture No Fungal Growth at 1 Week 11/13/2024 8:29 AM EDT [facility] Swab Topography unknown / Unknown 11/06/2024 11:29 AM EDT 11/06/2024 12:19 PM EDT Comment:Pre-op diagnosis: Surgical wound infection [T81.49XA] Nathaly Nowak MD LAB MICROBIOLOGY - GENERAL ORDE RABONEIDA Final Result Performing Organization Address City/[facility]/ZIP Co de Phone Number [facility] [address] [place] [address] * (ABNORMAL) Anaerobic Culture (11/06/2024 11:29 AM EDT) Culture No anaerobes isolated 11/14/2024 1:25 PM EDT [facility] Culture Streptococcus mitis/oralis group(A) 11/14/2024 1:25 PM EDT [facility] Comment: This result was determined by MALDI tof mass spectrometry using the [employer] database and is for research use only. [...] has been identified using the FDA Approved [employer] [place] System This is an appended report. [...] - Final [facility] [address] [place] [address] * Routine Culture and Gram Stain (11/06/2024 [...] ORDE RABONEIDA Final Result Performing Organization Address City/[facility]/ZIP Co de Phone Number [facility] [address] [place] [address] * Fungal Culture, Routine (11/06/2024 11:28 AM EDT) Culture No Fungal Growth at 1 Week 11/13/2024 8:29 AM EDT [facility] Swab Topography unknown / Unknown 11/06/2024 11:28 AM EDT 11/06/2024 12:20 PM EDT Comment:Pre-op diagnosis: Surgical wound infection [T81.49XA] us Nathaly Nwoak MD LAB MICROBIOLOGY - GENERAL ORDE LAM Final Result Performing Organization Address City/[facility] Co de Phone Number [facility] [address] [place] [address] * Anaerobic Culture (11/06/2024 11:28 AM EDT) Culture No growth at day 4 11/13/2024 12:53 PM EDT [facility] Swab Topography unknown / Unknown 11/06/2024 11:28 AM EDT 11/06/2024 12:20 PM EDT Comment:Pre-op diagnosis: Surgical wound infection [T81.49XA] us Nathaly Nowak MD LAB MICROBIOLOGY - GENERAL ORDE RABONEIDA Final Result [facility] [address] [place] [address] * (ABNORMAL) POCT glucose meter (11/06/2024 10:16 AM EDT) [facility] POCT Glucose 194(H) 74 - 99 mg/dL [...] Comment 11/06/2024 10:18 AM EDT HEALTHCARE LAB Crosstie Inspector ID Lacy Griffin 11/07/19 10:18 AM EDT HEALTHCARE LAB Device ID [id number] 11/06/2024 10:18 AM EDT HEALTHCARE LAB Specimen Type POC Capillary 11/06/2024 10:18 AM EDT [facility] Blood Capillary blood specimen / Unknown 11/06/2024 10:16 AM EDT 11/06/2024 10:18 AM EDT Nathaly Nowak MD LAB POINT OF CARE TE ST DOCKED DEVICE UNSOLICITED RESULTS Final Result [facility] [address] [place] [address] * (ABNORMAL) POCT glucose meter (11/06/2024 5:58 AM EDT) [facility] POCT Glucose 182(H) 74 - 99 mg/dL [...] Comment 11/06/2024 6:01 AM EDT [facility]ALTHCARE LAB Crosstie Inspector ID Raj Laird 11/07/19 6:01 AM EDT [facility]ALTH[facility]ARE LAB Device ID [id number] 11/06/2024 6:01 AM EDT [facility] Specimen Type POC Capillary 11/06/2024 6:01 AM EDT [facility] Blood Capillary blood specimen / Unknown 11/06/2024 5:58 AM EDT 11/06/2024 6:01 AM EDT Nathaly Nowak MD LAB POINT OF CARE TE ST DOCKED DEVICE UNSOLICITED RESULTS Final Result Performing Organization Address City/[facility] Co de Phone Number [facility]ARE [facility] [address] [place] [address] * (ABNORMAL) POCT glucose meter (11/06/2024 5:36 AM EDT) Pathologist [facility] POCT Glucose 202(H) 74 - 99 mg/dL [...] Comment 11/06/2024 5:38 AM EDT [facility]ALTHCARE LAB Crosstie Inspector ID Shahid Sanches 11/06/2024 5:38 AM EDT [facility]ARE LAB Device ID [id number] 11/06/2024 5:38 AM EDT [facility] Specimen Type POC Capillary 11/06/2024 5:38 AM EDT [facility] Blood Capillary blood specimen / Unknown 11/06/2024 5:36 AM EDT 11/06/2024 5:38 AM EDT Nathaly Nowak MD LAB POINT OF CARE TE ST DOCKED DEVICE UNSOLICITED RESULTS Final Result Performing Organization Address City/[facility] Co de Phone Number [facility] [address] [place] [address] * (ABNORMAL) Hemoglobin A1c (11/06/2024 1:07 AM [...] Adults <6.0% Children and Adolescents <7.5% Source: [place] [employer]. Standards of medical care in diabetes,2017. Diabetes Care.2017:40 (suppl 1):S1-S135. Nathaly Nowak MD LAB BLOOD ORDERABLES Final Resu lt Performing Organization Address City/[facility]/ZIP Co de Phone Number [facility] [address] [place] [address] * Blood Culture (Aerobic/Anaerobet Set) (11/06/2024 1:07 AM EDT) Culture No growth at day 5 11/11/2024 2:49 AM EDT [facility] Blood Structure of right hand / Unknown Venipuncture / Unknown 11/06/2024 1:07 AM EDT 11/06/2024 2:36 AM EDT Nathaly Nowak MD LAB MICROBIOLOGY - GENERAL ORDE RABLES Final Result [facility] [address] [place] [address] * Blood Culture (Aerobic/Anaerobet Set) (11/06/2024 1:07 AM EDT) Culture No growth at day 5 11/11/2024 3:01 AM EDT [facility] Blood Structure of antecubital vein / Unknown Venipuncture / Unknown 11/06/2024 1:07 AM EDT 11/06/2024 2:36 AM EDT us Nathaly Nowak MD LAB MICROBIOLOGY - GENERAL ORDAna FRITZ Final Result [facility] [address] [place] [address] * (ABNORMAL) Basic metabolic panel (11/06/2024 1:07 [...] ORDERABLES Final Resu lt Performing Organization Address City/[facility]/ZIP Co de Phone Number [facility] [address] [place] [address] * Phosphorus (11/06/2024 1:07 AM EDT) Phosphorus, Plasma 3.2 2.5 - 4.5 mg/dL 11/06/2024 1:41 AM EDT [facility] Blood Venous blood specimen / Unknown Venipuncture / Unknown 11/06/2024 1:07 AM EDT 11/06/2024 1:12 AM EDT Nathaly Nowak MD LAB BLOOD ORDERABLES Final Resu lt Performing Organization Address [facility]/ZIP Co de Phone Number [facility] [address] [place] [address] * Magnesium (11/06/2024 1:07 AM EDT) Pathologist [facility] Magnesium, Plasma 2.2 1.9 - 2.4 mg/dL 11/06/2024 1:41 AM EDT [facility] Blood Venous blood specimen / Unknown Venipuncture / Unknown 11/06/2024 1:07 AM EDT 11/06/2024 1:12 AM EDT Nathaly Nowak MD LAB BLOOD ORDERABLES Final Resu lt Performing Organization Address City/[facility]/ZIP Co de Phone Number [facility] [address] [place] [address] * (ABNORMAL) CBC (11/06/2024 1:07 AM EDT) [...] ORDERABLES Final Resu lt Performing Organization Address City/State/[facility] Co de Phone Number [facility] [address] [place] [address] * [facility] (11/06/2024 12:58 AM EDT) Extra Hold for add-ons 11/06/2024 3:21 AM EDT [facility] Comment:Auto resulted. Blood Venous blood specimen / Unknown 11/06/2024 12:58 AM EDT 11/06/2024 1:13 AM EDT Nathaly Nowak MD LAB BLOOD ORDERABLES Final Resu lt Performing Organization Address City/[facility]/ZIP Co de Phone Number [facility] [address] [place] [address] * Gold Top (11/06/2024 12:58 AM EDT) Extra Hold for add-ons 11/06/2024 3:21 AM EDT [facility] Comment:Auto resulted. Blood Venous blood specimen / Unknown 11/06/2024 12:58 AM EDT 11/06/2024 1:13 AM EDT us Nathaly Nowak MD LAB BLOOD ORDERABLES Final Resu lt Performing Organization Address [facility] Co de Phone Number [facility] [address] [place] [address] * Light Green Top (11/06/2024 12:58 AM EDT) Extra Hold for add-ons 11/06/2024 3:21 AM EDT [facility] Comment:Auto resulted. Blood Venous blood specimen / Unknown 11/06/2024 12:58 AM EDT 11/06/2024 1:13 AM EDT us Nathaly Nowak MD LAB BLOOD ORDERABLES Final Resu lt Performing Organization Address [facility] Co de Phone Number [facility] [address] [place] [address] * Light Blue Top (11/06/2024 12:58 AM EDT) Extra Hold for add-ons 11/06/2024 3:21 AM EDT [facility] Comment:Auto resulted. Blood Venous blood specimen / Unknown 11/06/2024 12:58 AM EDT 11/06/2024 1:13 AM EDT us Nathaly Nowak MD LAB BLOOD ORDERABLES Final Resu lt Performing Organization Address [facility]/ZIP Co de Phone Number [facility] [address] [place] [address] * Light Blue Top (11/06/2024 12:58 AM EDT) Pathologist [facility] Extra Hold for add-ons 11/06/2024 3:21 AM EDT [facility] Comment:Auto resulted. Blood Venous blood specimen / Unknown 11/06/2024 12:58 AM EDT 11/06/2024 1:13 AM EDT Nathaly Nowak MD LAB BLOOD ORDERABLES Final Resu lt Performing Organization Address City/[facility]/ZIP Co de Phone Number [facility] [address] [place] [address] * (ABNORMAL) POCT glucose meter (11/06/2024 12:45 AM EDT) [facility] POCT Glucose 204(H) 74 - 99 mg/dL [...] for testing. Comment 11/06/2024 12:48 AM EDT [facility] Crosstie Inspector ID Raj Laird 11/07/19 25 12:48 AM EDT [facility] Device ID [id number] 11/06/2024 12:48 AM EDT [facility] Specimen Type POC Capillary 11/06/2024 12:48 AM EDT [facility] Blood Capillary blood specimen / Unknown 11/06/2024 12:45 AM EDT 11/06/2024 12:48 AM EDT us Nathaly Nowak MD LAB POINT OF CARE TE ST DOCKED DEVICE UNSOLICITED RESULTS Final Result Performing Organization Address City/[facility] Co de Phone Number [facility] [address] [place] [address] documented in this encounter Visit Diagnoses Diagnosis [...] Intravenous, Every 8 hours, First dose on [facility] 11/07/24 at 1600, Until Discontinued, Routine New Bag [...] needed, Starting on Mon11/06/24 at 0031, Until [facility] 11/14/24 at 1804, Routine, line care [...] needed, Starting on Mon11/06/24 at 0753, Until [facility] 11/14/24 at 1804, Routine, On Unit - Preprocedure, line care sodium chloride 0.9 % flush 10 mL 10 mL, Intravenous, Every 12 hours, First dose on [facility] 11/09/24 at 1515, Until Discontinued, Routine Given 11/14/2024 2:42 PM EDT 10 mL Given 11/14/2024 3:03 AM EDT 10 mL Given 11/13/2024 4:43 PM EDT 10 mL Sodium Hypochlorite (Dakin's (HALF-Strength)) external solution 1 Application Irrigation, Daily, First dose on [facility] 11/09/24 at 0945, Until Discontinued, [...] Jonathan Vale RN)1356 (New Bag - Provider: Dveora Bo)1805 (New Bag - Provider: Devora Bo) [...] 2125 (Given - Provider: Jonathan Vale, CHRISTIAN) 203 (Given - Provider: Jonathan Vale RN) insulin lispro (Admelog) 100 units/mL injection - Correction - Resistant Dose 0-10 Units, Subcutaneous, 3 times daily with meals, First dose on Mon11/07/24 at 0945, Until Discontinued, Routine 0917 (Not Given - Provider: Devora Kahn Bo - Reason: Order parameters not met - Comment: [phone] (Given - Provider: Devora Kahn Bo)1806 (Given - Provider: Devora Kahn Bo) 0839 (Given - Provider: Devora Bo)1226 (Not Given - Provider: Devora Kahn Bo - Reason: Order parameters not met - Comment: [phone] (Not Given - Provider: Devora Kahn Bo - Reason: Order parameters not met) [...] Vale RN - Reason: Order parameters not met)212 (Not Given - Provider: Jonathan Vale RN [...] Discontinued, Routine 0938 (Given - Provider: Devora Kahn Bo)1805 (Given - Provider: Devora Kahn Bo) 0838 (Given - Provider: Devora Bo)1753 [...] Provider: Devora Bo)2031 (Given - Provider: Jonathan Vale, CHRISTIAN) 0856 [...] Routine 232 (New Bag - Provider: Jonathan Vale, CHRISTIAN) 232 (New Bag - Provider: Jonathan Vale, CHRISTIAN) [...] on Mon11/06/24 at 0200, Until Discontinued, Routine 212 (Given - Provider: Jonathan Vale RN) 2031 [...] Provider: Devora Bo)2032 (Given - Provider: Jonathan Vale RN) 0856 [...] mL/hr, Routine 0939 (Given - Provider: Devora Bo)2148 (Given - Provider: Jonathan Vale RN - [...] documented as of this encounter Care Teams [employer] Relationship Specialty Start Date End Date Asad Victor MD [address] [place] [address] PCP - General 10/07/22 documented as of this encounter
--- OUTSIDE RECORDS SUMMARY | 2024-11-06 10:08 | XMS_ITS | Encounter Summary ---
Author Organization Healthcare Address [address] [place] [address] Care Team Providers Care Marketing Assistant Name Role Phone Asad Victor MD Primary Care Provider + [phone] Reason for Visit * Reason Comments Post-op Problem Wound Check * Auth/Cert (Routine) Specialty Diagnoses / Procedures Referred By Contac t Referred To Contact Diagnoses Wound infection Post-op Vasc Sx wounds - sx on 10/17 at Nathaly Nowak MD [address] [address] Phone: tel: fax: [facility] Emergency Department [address] [place] [address] Phone: tel: Referral ID Status Reason Start Date Expiration Date Visits Re quested Visits Authorized [id number] 1 1 Encounter Details Date Type Department Care Team (Late st Contact Info) Description 11/06/2024 10:08 AM EDT - 11/06/2024 11:38 AM EDT Surgery [facility] OPERATING ROOM [address] [place] [address] Nathaly Nowak MD [id number] [place] [address] Left groin exploration and washout, [...] any time in the past 12 m [facility], were you homeless or [...] drink first t dino in 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 0 10/18/2021 CAGE Questionnaire Score 0 022 Utilities Answer Date Recorded In the past 12 months has [employer], gas, oil, or water [employer] threatened to shut off services in your [...] Carmona with any questions or concerns at [phone]. It is important that you get your [...] Note Bev Borja 64 y.o. 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 Please arrive at 11 am daily. [facility] [address] Go to Wound care clinic. First appointment is 1:10 pm. Please call [phone] with scheduling concerns. Discharge Transportation: Transportation Anticipated: medical transport Transportation Home at Discharge: Medical Transport Follow Up Transport: Transportation Needed to Follow up Appoinments: Medical Transport Additional Comments: Patient discharging home. No other SW needs identified. Mariia Monterroso MEAT SPECIALIST * Discharge Summary - Melecio Echevarria DO - 11/14/2024 12:46 PM EDT Hospitalization Admit Date/Time: 11/05/2024 9:45 PM Admitting Attending: Nathaly Nowak Discharge Date: 11/14/2024 Discharge Attending Physician: Nathaly Nowak MD PCP name and Address: Asad Victor MD (Inactive) [address] [place] [address] / [place] [address] Referring provider name and address: Wade Cowart, DO [address] [place] [address] Chief Concern, Brief History of Present Illness, and Hospital Course Mr. Borja is a 64 y/o male that presented to [facility] on 11/06/2024 for surgical wound infection [...] Your Medications These [facility] Infusion Services - GLENDA Solorzano - [address], [place] [address] ertapenem injection micafungin injection Discharge Diagnosis Medical [...] Provider Department Center 11/26/2024 2:00 PM [facility] 1 [facility] 11/26/2024 2:30 PM [facility] VASCULAR [facility] 2 [facility] 11/26/2024 3:20 PM Elisabet Schuster PA [facility] 11/29/2024 2:30 PM Oscar Appiah MD [id number] Ajo Test Results Pending At Discharge Pending Labs [...] a 64 y/o male that presented to [facility] on 11/06/2024 for surgical wound infection [...] portions of the procedure(s) and immediately available [place] services the entire duration. See resident note for details. * Progress Notes - Mariia Monterroso - 11/13/2024 1:57 PM EDT Case Management Adult Progress Note Bev Borja 64 y.o. male CSN: [id number] Admission: 11/05/2024 9:45 PM Primary Problem: Wound infection Wound vac to be delivered today by at bedside. SW [facility] (fax [phone]) and infusion clinic (fax [phone]). Plan to discharge tomorrow. SW will continue to follow. Mariia Monterroso MEAT SPECIALIST * Progress Notes - Bianca Knight PharmD - 11/13/2024 12:55 PM EDT Vancomycin therapy has been stopped per ID recommendation. Pharmacist will sign off from dosing and monitoring vancomycin. Please re- consult a pharmacist if more vancomycin is indicated. Bianca Knight PharmD, [facility] * Progress Notes - Ailin Levy MBBS [...] Lumen PICC Antimicrobial Regimen: IV Ertapenem 1g [id number] start date:11/06/2024 Projected End date:12/18/2024 IV Micafungin 150mg [id number] Start date: 11/12/2024 Projected End Date: 12/24/2024 [...] OPAT Team Attn: Dr Kraus Fax #: [phone] Appointments: (Dr Appiah 08/02/2024 at 2.30pm) at: [facility]: [address] [place] [address] (Select Option 3 for IV Antibiotic / PICC line related issues) For questions regarding OPAT prior to discharge, reach out to the OPAT team via Nu-B-2B Secure Chat (Group: OPAT Referral Team). For all questions regarding OPAT after discharge should be directed to the OPAT Team at (Select Option 3 for IV Antibiotics/PICC Issues) between 8am-5pm. After 5 pm, or during weekends/ holidays, please call the paging freelance operator at to reach the on-call ID [...] the original note were not included. [facility] Department of Surgery Division of Vascular Surgery Surgery Progress Note 11/13/24 Bev Borja Subjective Subjective: HPI 64yoM PMHx COPD, T2DM, HLD, HTN, RLS, CAD s/p PCI (on Xarelto) s/p pacemaker c/b left SANDIP pseudoaneurysm s/p thrombin injection 09/21/24, CLI s/p left femoral endarterectomy with EIA/HEATING AND VENTILATING TENDER stenting 10/17/24, who presented to [facility] 11/05/2024 with wound infection. 11/06/24: [...] 09/21/24, CLI s/p left femoral endarterectomy with EIA/HEATING AND VENTILATING TENDER stenting 10/17/24, who presented to [facility] 11/05/2024 with wound infection. POD [...] the findings. Cardiac Device Check - PRE-OR [facility] EP-Device Clinic: Pre-operative CIED Report Assessment and Sara-Procedural Reommendations: Name: Bev Borja Date: 10/17/2024 : 1960 Age: 64 y.o. Patient has a Beach Expert: Berger OVERLAY OPERATOR-PM Remaining battery longevity adequate. Lead integrity [...] recommendations. Supporting reports can be found in AlchemyAPI media file. Micro: Susceptibility data from last [...] Units Date/Time Tissue Culture and Gram Stain [[id number]] (Abnormal) (Susceptibility) Collected: 11/06/24 1134 Order Status: Completed Specimen: Tissue from Other (specify site) Updated: 11/12/24 1334 Culture Moderate Growth 2+ Enterobacter cloacae complex Comment: This isolate has been identified using the FDA Approved Xambalayper CA System The organism value for this result has been updated. These results have been appended to the previously preliminary verified report. Edited result: Previously reported as Gram Negative Jesus on 11/07/2024 at 1434 EDT. 2+ Streptococcus mitis/oralis group Comment: This isolate has been identified using the FDA Approved MALDI TapIn.tvyper CA System The organism value for this result has been updated. These results have been appended to the previously preliminary verified report. 2+ Pasteurella stomatis Comment: This result was determined by MALDI tof mass spectrometry using the Jimmy Fairly database and is for research use only. [...] stewardship team. Comprehensive GI Panel by PCR [[id number]] (Normal) Collected: 11/12/24 0950 Order Status: Completed [...] if clinically indicated. Clostridiodes (Clostridium) difficile PCR [[id number]] (Normal) Collected: 11/12/24 0950 Order Status: Completed [...] high complexity clinical laboratory testing. 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 These results have been appended to the previously preliminary verified report. Edited result: Previously reported as Yeast on 11/11/2024 at 1317 EDT. ISIDRO No fungal elements seen Additional Susceptibilities and/or Identification [[id number]] Collected: 11/11/24 1240 Order Status: Completed Specimen: Tissue from Wound (specify site): Additional Susceptibilities and/or Identification [[id number]] Collected: 11/11/24 1238 Order Status: Completed Specimen: Tissue from Wound (specify site): Additional Susceptibilities and/or Identification [[id number]] Collected: 11/11/24 1237 Order Status: Completed Specimen: Tissue from Wound (specify site): AFB Culture, Non Respiratory Source and Acid Fast Stain [[id number]] Collected: 11/06/24 1134 Order Status: Completed Specimen: Tissue from Other (specify site) Updated: 11/11/24 0938 AFB Culture No Mycobacterial Growth <1 Week Acid Fast Stain No acid fast bacilli seen Blood Culture (Aerobic/Anaerobet Set) [[id number]] Collected: 11/06/24106 Order Status: Completed Specimen: Blood from AC, Left Updated: 11/11/24 0301 Culture No growth at day 5 Blood Culture (Aerobic/Anaerobet Set) [[id number]] Collected: 11/06/24106 Order Status: Completed Specimen: Blood [...] [facility]. [facility] [...] to stay a facility, plan for h [facility] daily IV abx. Plan for ID [...] tablet 1,000 mg 1,000 mg Oral q6h [facility] Anthony Reyes MD 1,000 [...] Dose 0-3 Units Subcutaneous Twice at night eRid Daniels MD 1 Units at 11/08/242021 labetalol (Normodyne,Trandate) injection 10 mg 10 mg Intravenous q6h PRN Cnade Cee MD lactobacillus acidophilus (Floranex) tablet 1 [...] Prevent or Manage Pain Flowsheets (Taken 11/11/2024 7623 by Jonathan Vale RN) Sensory Stimulation Regulation: care clustered lighting decreased quiet environment promoted Medication Review/Management: medications reviewed * Consults - Anabel Ovalle RD - 11/12/2024 9:59 AM EDT Adult Nutrition Evaluation Note Bev Borja 64 y.o. male CSN: [id number] Room/Bed 682/682B Nutrition evaluation type: assessment Reason for evaluation: LOS Hospital course: 64 y.o. male with PMHx significant for COPD, CAD s/p PCI (on Xarelto) s/p pacemaker c/b left SANDIP pseudoaneurysm s/p thrombin injection 09/21/24, chronic limb ischemia s/p left femoralendarterectomy with external iliac/common femoral artery stenting 10/17/24, T2DM, HLD, HTN, RLS who presented to the [facility] on 11/05/2024 with problems with his [...] (Room air) O2 Delivery Method: Face tent [place] Coma Scale Score: 15 Loi Scale Score: [...] (194 lb 3.6 oz) BMI (Calculated): 30.41 [place] Body Weight (kg): 67.3 Percent [place] Body Weight: 131 Adjusted Body Weight (kg): [...] oz) Estimated Needs: Kcal/ K-30 Kcal Provided: 7612-5220 Kcal Needs Based On: Adjusted weight Gm Protein/ Kg : 1.2-1.5 Protein Provided: 87-108 Protein Needs Based On: Adjusted weight Metabolic Cart Study Results: Current Nutrition Intake: Diet Order: Adult Diet Diet Texture: Regular Adult Carbohydrate Restriction: Consistent CHO 1 (3087-4332 Jatinder, 65 g/meal) Percent Meals Eaten (%): avg 63% x 6 emals Diet Experience and Nutrition History: Diet Education Provided: Will monitor Pertinent home medications: clopidogrel, docusate sodium, Lantus, Humalog, lisinopril, metoprolol tartrate, pravastatin, rivaroxaban, ropinirole, tamsulosin Voodoo needs: Nutrition Focused Physical Exam: Physical exam [...] ENDARTERECTOMY N/A 2017 Endarterectomy Carotid Artery from [facility] CORONARY ANGIOPLASTY Left Coronary Angiography With Concomitant Left Heart Catheterization from [facility] CORONARY ARTERY BYPASS GRAFT N/A 2018 3V ELBOW SURGERY Right ENDARTERECTOMY Left 10/17/2024 common/SFA/Profunda thromboendarterectomy, EIA/HEATING AND VENTILATING TENDER stent HERNIA REPAIR KNEE ARTHROSCOPY Left VASCULAR SURGERY Left 09/21/2024 HEATING AND VENTILATING TENDER pseudoaneurym injection [3] Social History Tobacco Use [...] from the original note were not included. [facility] Department of Surgery Division of Vascular Surgery Surgery Progress Note 11/12/24 Bev Perez Cristoferkeo Subjective Subjective: HPI 64yoM PMHx COPD, T2DM, HLD, HTN, RLS, CAD s/p PCI (on Xarelto) s/p pacemaker c/b left SANDIP pseudoaneurysm s/p thrombin injection 09/21/24, CLI s/p left femoral endarterectomy with EIA/HEATING AND VENTILATING TENDER stenting 10/17/24, who presented to [facility] 11/05/2024 with wound infection. 11/06/24: [...] 09/21/24, CLI s/p left femoral endarterectomy with EIA/HEATING AND VENTILATING TENDER stenting 10/17/24, who presented to [facility] 11/05/2024 with wound infection. POD [...] the findings. Cardiac Device Check - [facility] EP[facility]: Pre-operative CIED Report Assessment and Sara-Procedural Reommendations: Name: Bev Borja Date: 10/17/2024 : 1960 Age: 64 y.o. 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 Lead integrity [...] recommendations. Supporting reports can be found in AlchemyAPI media file. Micro: Susceptibility data from last [...] Units Date/Time Tissue Culture and Gram Stain [[id number]] (Abnormal) (Susceptibility) Collected: 11/06/24 1134 Order Status: Completed Specimen: Tissue from Other (specify site) Updated: 11/12/24 1334 Culture Moderate Growth 2+ Enterobacter cloacae complex Comment: This isolate has been identified using the FDA Approved [employer] X-Rayer CA System The organism value for this result has been updated. These results have been appended to the previously preliminary verified report. Edited result: Previously reported as Gram Negative Jesus on 11/07/2024 at 1434 EDT. 2+ Streptococcus mitis/oralis group Comment: This isolate has been identified using the FDA Approved [employer] X-Rayer CA System The organism value for this result has been updated. These results have been appended to the previously preliminary verified report. 2+ Pasteurella stomatis Comment: This result was determined by MALDI tof mass spectrometry using the Jimmy Fairly database and is for research use only. [...] stewardship team. Comprehensive GI Panel by PCR [[id number]] (Normal) Collected: 11/12/24 0950 Order Status: Completed [...] if clinically indicated. Clostridiodes (Clostridium) difficile PCR [[id number]] (Normal) Collected: 11/12/24 0950 Order Status: Completed [...] high complexity clinical laboratory testing. Anaerobic Culture [[id number]] Collected: 11/06/24 1128 Order Status: Completed Specimen: Swab from Other (specify site) Updated: 11/12/24 1118 Culture No growth at day 4 Fungal Culture, Tissue and ISIDRO [[id number]] (Abnormal) Collected: 11/06/24 1134 Order Status: Completed Specimen: Tissue from Other (specify site) Updated: 11/12/24 1033 Culture Reading Mycological 4 Weeks Rare Murdo Sana parapsilosis Comment: This isolate has been identified using the FDA Approved Xambalayper CA System The organism value for this result has been updated. These results have been appended to the previously preliminary verified report. Edited result: Previously reported as Yeast on 11/11/2024 at 1317 EDT. ISIDRO No fungal elements seen Additional Susceptibilities and/or Identification [[id number]] Collected: 11/11/24 1240 Order Status: Completed Specimen: Tissue from Wound (specify site): Additional Susceptibilities and/or Identification [[id number]] Collected: 11/11/24 1238 Order Status: Completed Specimen: Tissue from Wound (specify site): Additional Susceptibilities and/or Identification [[id number]] Collected: 11/11/24 1237 Order Status: Completed Specimen: Tissue from Wound (specify site): AFB Culture, Non Respiratory Source and Acid Fast Stain [[id number]] Collected: 11/06/24 1134 Order Status: Completed Specimen: Tissue from Other (specify site) Updated: 11/11/24 0938 AFB Culture No Mycobacterial Growth <1 Week Acid Fast Stain No acid fast bacilli seen Blood Culture (Aerobic/Anaerobet Set) [[id number]] Collected: 11/06/24106 Order Status: Completed Specimen: Blood from AC, Left Updated: 11/11/24 0301 Culture No growth at day 5 Blood Culture (Aerobic/Anaerobet Set) [[id number]] Collected: 11/06/24106 Order Status: Completed Specimen: Blood [...] OSH. On 11/06, pt went to [facility] vascular surgery for left groin [...] tablet 1,000 mg 1,000 mg Oral q6h [facility] Anthony Reyes MD 1,000 mg at 11/12/24 1356 aspirin chewable tablet 81 mg 81 mg Oral Daily Reid Daniels MD 81 mg at 11/12/24 0938 cefepime (Maxipime) 2 g in sodium chloride 0.9% 100 mL IVPB (vial adapter required) 2 g [id number] Reid Daniels MD 36.7 mL/hr at 11/12/24 [...] mg Intravenous q6h PRN Cande eCe MD lactobacillus acidophilus (Floranex) tablet 1 tablet [...] PM Anthony Reyes MD 0.4 mg at [id number] Vancomycin HCl in NaCl (Vancocin) IVPB 1,000 [...] send him home on micafungin as Rare Murdo Sana parapsilosis grew and we do not [...] Goal: Optimal Comfort and Wellbeing 11/11/20242347 by Jnoathan Vale RN Outcome: Ongoing, Progressing 11/11/20242336 by [...] by oJnathan Vale RN Outcome: Ongoing, Progressing Goal: Effective [...] portions of the procedure(s) and immediately available [place] services the entire duration. See resident note for details. * Progress Notes - Mariia Monterroso - 11/11/2024 1:10 PM EDT Case Management Adult Progress Note Bev Borja 64 y.o. male CSN: [id number] Admission: 11/05/2024 9:45 PM Primary Problem: Wound infection Patient refusing inpatient placement for IV abx. [facility] infusion clinic can provide treatment. Face sheet, IV abx orders, and order for PICC care/labs/dressing changes need to be faxed to [phone]. Voicemail left with wound care clinic. Wound vac approved per , delivery pending. Crysll continue to follow. Mariia Monterroso MEAT SPECIALIST * Progress Notes - Dotty Sethi [...] the findings. Cardiac Device Check - PRE[facility] EP[facility]: Pre-operative CIED Report Assessment and Sara-Procedural Reommendations: Name: Bev Borja Date: 10/17/2024 : 1960 Age: 64 y.o. Patient has a Beach Expert: Berger OVERLAY OPERATOR-PM Remaining battery longevity adequate. Lead integrity [...] recommendations. Supporting reports can be found in AlchemyAPI media file. Micro: Susceptibility data from last [...] Non Respiratory Source and Acid Fast Stain [[id number]] Collected: 11/06/24 1134 Order Status: Completed Specimen: Tissue from Other (specify site) Updated: 11/11/24 0938 AFB Culture No Mycobacterial Growth <1 Week Acid Fast Stain No acid fast bacilli seen Blood Culture (Aerobic/Anaerobet Set) [[id number]] Collected: 11/06/24106 Order Status: Completed Specimen: Blood from AC, Left Updated: 11/11/24 0301 Culture No growth at day 5 Blood Culture (Aerobic/Anaerobet Set) [[id number]] Collected: 11/06/24 010 Order Status: Completed Specimen: Blood from Hand, Right Updated: 11/11/24 0249 Culture No growth at day 5 Anaerobic Culture [[id number]] Collected: 11/06/24 1128 Order Status: Completed Specimen: Swab from Other (specify site) Updated: 11/10/24 1441 Culture No growth at day 4 Routine Culture and Gram Stain [[id number]] Collected: 11/06/24 1128 Order Status: Completed Specimen: Swab from Other (specify site) Updated: 11/10/24 1124 Culture No growth at day 4 Gram Stain Result No organisms seen No polymorphonuclear leukocytes seen Anaerobic Culture [[id number]] (Abnormal) Collected: 11/06/24 112 Order Status: Completed Specimen: Swab from Other (specify site) Updated: 11/10/24 0718 Culture No anaerobes isolated Mixed skin clifton Comment: The organism value for this result has been updated. These results have been appended to the previously preliminary verified report. Narrative: Mixed Skin [place] includes Streptococcus mitis/oralis group and Staphylococcus Pseudintermedius Anaerobic Culture [[id number]] (Abnormal) Collected: 11/06/24 1134 Order Status: Completed [...] [facility]. [facility] [...] mL IVPB (vial adapter required) 2 g [id number] Reid Daniels MD 36.7 mL/hr at 11/11/24 [...] 500 mg 500 mg Oral 4x daily Antohny Reyes MD 500 mg at 11/11/24825 metoprolol [...] PM Anthony Reyes MD 0.4 mg at 670213 Vancomycin HCl in NaCl (Vancocin) IVPB 1,000 [...] from the original note were not included. [facility] Department of Surgery Division of Vascular Surgery Surgery Progress Note 11/11/24 Bev Borja Subjective Subjective: HPI 64yoM PMHx COPD, T2DM, HLD, HTN, RLS, CAD s/p PCI (on Xarelto) s/p pacemaker c/b left SANDIP pseudoaneurysm s/p thrombin injection 09/21/24, CLI s/p left femoral endarterectomy with EIA/HEATING AND VENTILATING TENDER stenting 10/17/24, who presented to [facility] 11/05/2024 with wound infection. 11/06/24: [...] 09/21/24, CLI s/p left femoral endarterectomy with EIA/HEATING AND VENTILATING TENDER stenting 10/17/24, who presented to [facility] 11/05/2024 with wound infection. POD [...] Edited by: Reid Daniels MD at 11/11/2024 0896 Dispo: Continue Current Level of Care Reid [...] to follow, Submitted by: Kalpesh Lord PharmD, [facility] 11/10/2024 12:45 PM * Care Plan - [...] 09/21/24, CLI s/p left femoral endarterectomy with EIA/HEATING AND VENTILATING TENDER stenting 10/17/24, who presented to [facility] 11/05/2024 with wound infection. 11/06/24: [...] 09/21/24, CLI s/p left femoral endarterectomy with EIA/HEATING AND VENTILATING TENDER stenting 10/17/24, who presented to [facility] 11/05/2024 with wound infection. POD [...] Barraza RN Authorized by: Nathaly Nowak MD [place] Protocol: Verbal consent obtained?: Yes Written consent [...] selection rationale: Left pacemaker Catheter Lot #: [id number] Catheter machine striper: Singspiel Catheter placed: Single lumen Catheter size: 4 [...] 09/21/24, CLI s/p left femoral endarterectomy with EIA/HEATING AND VENTILATING TENDER stenting 10/17/24, who presented to [facility] 11/05/2024 with wound infection. 11/06/24: [...] 09/21/24, CLI s/p left femoral endarterectomy with EIA/HEATING AND VENTILATING TENDER stenting 10/17/24, who presented to [facility] 11/05/2024 with wound infection. POD [...] Level of Care [place] M4 student [facility] Cosigned by Nathaly Nowak [...] PT session. Patient reports he went to [facility] 12th floor via w/c yesterday to visit [...] Mobility: Ambulatory- community (was utilizing scooter at [employer] since discharge) Mobility Spencer: Independent gait with device History of Falls: [...] Mobility Bed Mobility Exam: Scooting/Bridging Level of Spencer: Modified independence Bed Mobility Exam: Supine to Sit Level of Spencer: Modified Spencer Transfers Transfer Exam: Sit to stand Level of Spencer: Modified independence Assistive Device: Rollator Transfer Exam: Stand to Sit Level of Spencer: Modified independence Assistive Device: Rollator Ambulation Device: [...] endurance. Standardized Assessments [facility] 6-Clicks Mobility Assessment Difficulty patient has turning [...] railing?: A little [facility] 6-Clicks Mobility Assessment Total : 22 Assessment [...] Mobility Ambulatory- community (was utilizing scooter at [employer] since discharge) Mobility Spencer Independent gait with device History of Falls [...] distal to knee) BED MOBILITY Level of Spencer Physical/Non-physical Assist Adaptive Equipment Utilized Scooting/ Bridging Modified independence Supine to Sit Modified Spencer TRANSFERS Level of Spencer Physical/Non-physical Assist Adaptive Equipment Utilized Sit to Stand Modified independence Rollator Stand to sit Modified independence Rollator Toilet Transfer Modified independence Grab bar FUNCTIONAL MOBILITY Ambulation Modified independent 200ft x2 with seated rest break between bouts; RPE 5-7/10. Cues forsafety with rollator brakes. Rollator Comments BALANCE Postural Appearance Posture: Within Functional Limits Level of Spencer Balance Support Static Sit Independent Feet supported Dynamic Sit Independent Feet supported Static Stand Independent Right upper extremity support, Left upper extremity support (via rollator) Dynamic Stand Independent Right upper extremity support, Left upper extremity support (via rollator) STANDARDIZED ASSESSMENTS [facility] 6-Click Daily Activities Help from Other: Don/Doff Regular Lower Body Clothings: None Help From Other: Bathing: None Help From Other: Toileting: None Help From Other: Don/Doff Upper Body Clothings: None Help From Other: Grooming: None Help From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 BLOOD ORDERABLES Final Resu lt Performing Organization Address City/[facility] Co de Phone Number [facility] [address] [place] [address] * (ABNORMAL) CBC W/O Differential (11/13/2024 6:37 AM EDT) WBC Count 11.72(H) 3.70 - 10.30 10*3/uL LAB HEMATOLOGY METHOD 11/13/2024 6:51 AM EDT [facility] RBC Count 2.88(L) 4.60 - 6.10 10*6/uL LAB HEMATOLOGY METHOD 11/13/2024 6:51 AM EDT [facility] HGB 8.5(L) 13.7 - 17.5 g/dL LAB HEMATOLOGY METHOD 11/13/2024 6:51 AM EDT [facility] HCT 26.4(L) 40.0 - 51.0 % LAB HEMATOLOGY METHOD 11/13/2024 6:51 AM EDT [facility] Platelet Count 398(H) 155 - 369 10*3/uL LAB HEMATOLOGY METHOD 11/13/2024 6:51 AM EDT [facility] MCV 92 79 - 98 fL LAB HEMATOLOGY METHOD 11/13/2024 6:51 AM EDT [facility] MCH 29.5 26.0 - 32.0 pg LAB HEMATOLOGY METHOD 11/13/2024 6:51 AM EDT [facility] MCHC 32.2 30.7 - 35.5 g/dL LAB HEMATOLOGY METHOD 11/13/2024 6:51 AM EDT [facility] RDW 13.6 11.5 - 14.5 % LAB HEMATOLOGY METHOD 11/13/2024 6:51 AM EDT [facility] MPV 8.9 8.8 - 12.5 fL LAB HEMATOLOGY METHOD 11/13/2024 6:51 AM EDT [facility] nRBC 0.0 <=0.0 per 100 WBCs LAB HEMATOLOGY METHOD 11/13/2024 6:51 AM EDT [facility] Blood Venous blood specimen / Unknown Venipuncture / Unknown 11/13/2024 6:37 AM EDT 11/13/2024 6:44 AM EDT us Nathaly Nowak MD LAB BLOOD ORDERABLES Final Resu lt [facility] [address] [place] [address] * (ABNORMAL) Basic Metabolic Panel, Plasma (11/13/2024 6:37 AM EDT) [facility] Glucose, Plasma 200(H) 74 - 99 mg/dL 11/13/2024 7:16 AM EDT [facility] BUN, Plasma 10 8 - 23 mg/dL 11/13/2024 7:16 AM EDT [facility] Creatinine, Plasma 0.68(L) 0.70 - 1.20 mg/dL 11/13/2024 7:16 AM EDT [facility] BUN/Creatinine Ratio 15 11/13/2024 7:16 AM EDT [facility] Sodium, Plasma 135(L) 136 - 145 mmol/L 11/13/2024 7:16 AM EDT [facility] Potassium, Plasma 3.9 3.6 - 4.9 mmol/L 11/13/2024 7:16 AM EDT [facility] Chloride, Plasma 107 97 - 107 mmol/L 11/13/2024 7:16 AM EDT [facility] CO2, Plasma 21(L) 22 - 29 mmol/L 11/13/2024 7:16 AM EDT [facility] Anion Gap 7 6 - 16 mmol/L 11/13/2024 7:16 AM EDT [facility] Total Calcium, Plasma 8.1(L) 8.9 - 10.2 mg/dL 11/13/2024 7:16 AM EDT [facility] eGFRcr 103.2 mL/min/1.7 3m*2 11/13/2024 7:16 AM EDT [facility] Comment:Reported eGFRcr in m L/min/1.73m2 is based the CKD-EPI 2020 equation that does not use a race coefficient. Blood Venous blood specimen / Unknown Venipuncture / Unknown 11/13/2024 6:37 AM EDT 11/13/2024 6:44 AM EDT us Nathaly Nowak MD LAB BLOOD ORDERABLES Final Resu lt [facility] [address] [place] [address] * (ABNORMAL) POCT glucose meter (11/12/2024 8:27 [...] Comment 11/12/2024 8:29 PM EDT [facility] [employer] Nelda Gerber 11/13/19 8:29 PM EDT [facility]ALTH[facility] LAB Device ID [id number] 11/12/2024 8:29 PM EDT [facility] Specimen Type POC Capillary 11/12/2024 8:29 PM EDT [facility] Blood Capillary blood specimen / Unknown 11/12/2024 8:27 PM EDT 11/12/2024 8:29 PM EDT Nathaly Nowak MD LAB POINT OF CARE TE ST DOCKED DEVICE UNSOLICITED RESULTS Final Result Performing Organization Address City/State/[facility] Co de Phone Number [facility] [address] [place] [address] * (ABNORMAL) POCT glucose meter (11/12/2024 5:08 PM EDT) [facility] POCT Glucose 157(H) 74 - 99 [...] 11/12/2024 5:10 PM EDT [facility] [employer] Wade Feliciano 5:10 PM EDT [facility]ALTH[facility] Device ID [id number] 11/12/2024 5:10 PM EDT [facility] Specimen Type POC Capillary 11/12/2024 5:10 PM EDT [facility] Blood Capillary blood specimen / Unknown 11/12/2024 5:08 PM EDT 11/12/2024 5:10 PM EDT Nathaly Nowak MD LAB POINT OF CARE TE ST DOCKED DEVICE UNSOLICITED RESULTS Final Result Performing Organization Address City/[facility] Co de Phone Number [facility] [address] [place] [address] * (ABNORMAL) POCT glucose meter (11/12/2024 12:36 PM EDT) [facility] POCT Glucose 224(H) 74 - 99 [...] Comment 11/12/2024 12:38 PM EDT [facility] [employer] ID Wade Feliciano Tobias 12:38 PM EDT [facility]ALTH[facility] LAB Device ID [id number] 11/12/2024 12:38 PM EDT [facility] Specimen Type POC Capillary 11/12/2024 12:38 PM EDT [facility] Blood Capillary blood specimen / Unknown 11/12/2024 12:36 PM EDT 11/12/2024 12:38 PM EDT us Nathaly Nowak MD LAB POINT OF CARE TE ST DOCKED DEVICE UNSOLICITED RESULTS Final Result Performing Organization Address City/[facility]/ZIP Co de Phone Number [facility] [address] [place] [address] * Clostridiodes (Clostridium) difficile PCR (11/12/2024 9:50 AM EDT) [facility] C difficile PCR toxin B gene DNA Result Not Detected Not Detected 11/12/2024 11:54 AM EDT [facility] Stool Rectum structure / Unknown Non-blood Collection / Unknown 11/12/2024 9:50 AM EDT 11/12/2024 10:04 AM EDT Narrative [facility] - 11/12/2024 11:54 AM EDT [...] MICROBIOLOGY - GENERAL ORDE LAM Final Result [facility] [address] [place] [address] * Comprehensive GI Panel by PCR (11/12/2024 9:50 AM EDT) Campylobacter PCR Result Not Detected Not Detected 11/12/2024 2:47 PM EDT [facility] Plesiomonas shigelloides PCR Result Not Detected Not Detected 11/12/2024 2:47 PM EDT [facility] Salmonella PCR Result Not Detected Not Detected 11/12/2024 2:47 PM EDT [facility] Vibrio species PCR Result Not Detected Not Detected 11/12/2024 2:47 PM EDT [facility] Vibrio cholerae PCR Result Not Detected Not Detected 11/12/2024 2:47 PM EDT [facility] Yersinia enterocolitica PCR Result Not Detected Not Detected 11/12/2024 2:47 PM EDT [facility] Enteroaggregative E. coli (EAEC) PCR Result Not Detected Not Detected 11/12/2024 2:47 PM EDT [facility] Enteropathogenic E. coli (EPEC) PCR Result Not Detected Not Detected 11/12/2024 2:47 PM EDT [facility] Enterotoxigenic E. coli (ETEC) lt/st PCR Result Not Detected Not Detected 11/12/2024 2:47 PM EDT [facility] Shiga-like Toxin-Producing E.coli (STEC) stx1/stx2 PCR Resu Not Detected Not Detected 11/12/2024 2:47 PM EDT [facility] E coli 0157 PCR Result Not Detected Not Detected 11/12/2024 2:47 PM EDT [facility] Shigella/Enteroinvas tam E. coli (EIEC) PCR Result Not Detected Not Detected 11/12/2024 2:47 PM EDT [facility] Cryptosporidium PCR Result Not Detected Not Detected 11/12/2024 2:47 PM EDT [facility] Cyclospora cayetanensis PCR Result Not Detected Not Detected 11/12/2024 2:47 PM EDT [facility] Entamoeba histolytica PCR Result Not Detected Not Detected 11/12/2024 2:47 PM EDT [facility] Giardia duodenalis (aka Giardia lamblia) PCR Result Not Detected Not Detected 11/12/2024 2:47 PM EDT [facility] Adenovirus F 40/41 PCR Result Not Detected Not Detected 11/12/2024 2:47 PM EDT [facility] Astrovirus PCR Result Not Detected Not Detected 11/12/2024 2:47 PM EDT [facility] Norovirus GI/GII PCR Result Not Detected Not Detected 11/12/2024 2:47 PM EDT [facility] Rotavirus A PCR Result Not Detected Not Detected 11/12/2024 2:47 PM EDT [facility] Sapovirus PCR Result Not Detected Not Detected 11/12/2024 2:47 PM EDT [facility] Stool Rectum structure / Unknown Non-blood Collection / Unknown 11/12/2024 9:50 AM EDT 11/12/2024 10:04 AM EDT Narrative [facility] - 11/12/2024 2:47 PM EDT [...] ORDE RABLES Final Result Performing Organization Address [facility]/ZIP Co de Phone Number [facility] [address] [place] [address] * C-reactive protein (11/12/2024 9:48 AM EDT) [facility] CRP, Plasma <3.0 <=8.0 mg/L 11/12/2024 10:28 AM EDT [facility] Blood Venous blood specimen / Unknown Venipuncture / Unknown 11/12/2024 9:48 AM EDT 11/12/2024 9:59 AM EDT Narrative [facility] - 11/12/2024 10:28 AM EDT This CRP test is appropriate for assessment of infection, systemic inflammation and/or tissue injury. To assess cardiovascular disease risk order high sensitivity CRP (CRPH). Nathaly Nowak MD LAB BLOOD ORDERABLES Final Resu lt Performing Organization Address [facility] Co de Phone Number [facility] [address] [place] [address] * (ABNORMAL) POCT glucose meter (11/12/2024 8:20 AM EDT) [facility] POCT Glucose 138(H) 74 - 99 [...] Comment 11/12/2024 8:21 AM EDT [facility]ALTH[facility] [employer] Wade Feliciano 8:21 AM EDT [facility]ALTH[facility] Device ID [id number] 11/12/2024 8:21 AM EDT [facility] Specimen Type POC Capillary 11/12/2024 8:21 AM EDT [facility] Blood Capillary blood specimen / Unknown 11/12/2024 8:20 AM EDT 11/12/2024 8:21 AM EDT Nathaly Nowak MD LAB POINT OF CARE TE ST DOCKED DEVICE UNSOLICITED RESULTS Final Result Performing Organization Address [facility] de Phone Number [facility] [address] [place] [address] * (ABNORMAL) POCT glucose meter (11/11/2024 8:18 PM EDT) [facility] POCT Glucose 248(H) 74 - 99 [...] Comment 11/11/2024 8:20 PM EDT [facility] [employer] Nelda Gerber 11/12/19 8:20 PM EDT [facility]ALTH[facility] LAB Device ID [id number] 11/11/2024 8:20 PM EDT [facility] Specimen Type POC Capillary 11/11/2024 8:20 PM EDT [facility] Blood Capillary blood specimen / Unknown 11/11/2024 8:18 PM EDT 11/11/2024 8:20 PM EDT Nathaly Nowak MD LAB POINT OF CARE TE ST DOCKED DEVICE UNSOLICITED RESULTS Final Result Performing Organization Address City/[facility] Co de Phone Number [facility] [address] [place] [address] * (ABNORMAL) POCT glucose meter (11/11/2024 5:59 PM EDT) [facility] POCT Glucose 147(H) 74 - 99 [...] Comment 11/11/2024 6:01 PM EDT [facility] [employer] ID Wade Feliciano 6:01 PM EDT [facility] LAB Device ID [id number] 11/11/2024 6:01 PM EDT [facility] Specimen Type POC Capillary 11/11/2024 6:01 PM EDT [facility] Blood Capillary blood specimen / Unknown 11/11/2024 5:59 PM EDT 11/11/2024 6:01 PM EDT Nathaly Nowak MD LAB POINT OF CARE TE ST DOCKED DEVICE UNSOLICITED RESULTS Final Result Performing Organization Address City/[facility] Co de Phone Number [facility] [address] [place] [address] * POCT glucose meter (11/11/2024 5:20 PM EDT) [facility] POCT Glucose 84 74 - 99 [...] Comment 11/11/2024 5:22 PM EDT [facility] [employer] Wade Feliciano 5:22 PM EDT [facility] LAB Device ID [id number] 11/11/2024 5:22 PM EDT [facility] Specimen Type POC Capillary 11/11/2024 5:22 PM EDT [facility] Blood Capillary blood specimen / Unknown 11/11/2024 5:20 PM EDT 11/11/2024 5:22 PM EDT us Nathaly Nowak MD LAB POINT OF CARE TE ST DOCKED DEVICE UNSOLICITED RESULTS Final Result [facility] [address] [place] [address] * NE NEGATIVE PRESSURE WOUND THERAPY DME >50 SQ [...] 11/11/2024 12:10 PM EDT [facility] [employer] Braden Wade Collado 12:10 PM EDT [facility] Device ID [id number] 11/11/2024 12:10 PM EDT [facility] Specimen Type POC Capillary 11/11/2024 12:10 PM EDT [facility] Blood Capillary blood specimen / Unknown 11/11/2024 12:08 PM EDT 11/11/2024 12:10 PM EDT us Nathaly Nowak MD LAB POINT OF CARE TE ST DOCKED DEVICE UNSOLICITED RESULTS Final Result [facility] [address] [place] [address] * (ABNORMAL) POCT glucose meter (11/11/2024 9:08 [...] for testing. Comment 11/11/2024 9:09 AM EDT [facility] [employer] ID Wade Feliciano Tobias 9:09 AM EDT [facility] Device ID [id number] 11/11/2024 9:09 AM EDT [facility] Specimen Type POC Capillary 11/11/2024 9:09 AM EDT [facility] Blood Capillary blood specimen / Unknown 11/11/2024 9:08 AM EDT 11/11/2024 9:09 AM EDT us Nathaly Nowak MD LAB POINT OF CARE TE ST DOCKED DEVICE UNSOLICITED RESULTS Final Result Performing Organization Address City/[facility]/ZIP Co de Phone Number [facility] [address] [place] [address] * POCT glucose meter (11/11/2024 8:27 AM EDT) Pathologist [facility] POCT Glucose 87 74 - 99 mg/dL [...] 11/11/2024 8:28 AM EDT [facility] [employer] Wade Feliciano 8:28 AM EDT [facility]ALTH[facility] Device ID [id number] 11/11/2024 8:28 AM EDT [facility] Specimen Type POC Capillary 11/11/2024 8:28 AM EDT [facility] Blood Capillary blood specimen / Unknown 11/11/2024 8:27 AM EDT 11/11/2024 8:28 AM EDT us Nathaly Nowak MD LAB POINT OF CARE TE ST DOCKED DEVICE UNSOLICITED RESULTS Final Result [facility] [address] [place], [place] [id number] * (ABNORMAL) Basic Metabolic Panel, Plasma (11/11/2024 1:12 AM EDT) Glucose, Plasma 122(H) 74 - 99 mg/dL 11/11/2024 1:12 AM EDT [facility] BUN, Plasma 10 8 - 23 mg/dL 11/11/2024 1:12 AM EDT [facility] Creatinine, Plasma 0.82 0.70 - 1.20 mg/dL 11/11/2024 1:12 AM EDT [facility] BUN/Creatinine Ratio 12 11/11/2024 1:12 AM EDT [facility] Sodium, Plasma 137 136 - 145 mmol/L 11/11/2024 1:12 AM EDT [facility] Potassium, Plasma 3.9 3.6 - 4.9 mmol/L 11/11/2024 1:12 AM EDT [facility] Chloride, Plasma 110(H) 97 - 107 mmol/L 11/11/2024 1:12 AM EDT [facility] CO2, Plasma 20(L) 22 - 29 mmol/L 11/11/2024 1:12 AM EDT [facility] Anion Gap 7 6 - 16 mmol/L 11/11/2024 1:12 AM EDT [facility] Total Calcium, Plasma 7.6(L) 8.9 - 10.2 mg/dL 11/11/2024 1:12 AM EDT [facility] eGFRcr 97.5 mL/min/1.7 3m*2 11/11/2024 1:12 AM EDT [facility] Comment:Reported eGFRcr in m L/min/1.73m2 is based the CKD-EPI 2020 equation that does not use a race coefficient. Blood Venous blood specimen / Unknown 11/11/2024 12:42 AM EDT us Nathaly Nowak MD LAB BLOOD ORDERABLES Final Resu lt [facility] [address] [place] [address] * (ABNORMAL) CBC W/O Differential (11/11/2024 12:56 AM EDT) WBC Count 11.83(H) 3.70 - 10.30 10*3/uL LAB HEMATOLOGY METHOD 11/11/2024 12:56 AM EDT [facility] RBC Count 2.97(L) 4.60 - 6.10 10*6/uL LAB HEMATOLOGY METHOD 11/11/2024 12:56 AM EDT [facility] HGB 8.9(L) 13.7 - 17.5 g/dL LAB HEMATOLOGY METHOD 11/11/2024 12:56 AM EDT [facility] HCT 27.2(L) 40.0 - 51.0 % LAB HEMATOLOGY METHOD 11/11/2024 12:56 AM EDT [facility] Platelet Count 444(H) 155 - 369 10*3/uL LAB HEMATOLOGY METHOD 11/11/2024 12:56 AM EDT [facility] MCV 92 79 - 98 fL LAB HEMATOLOGY METHOD 11/11/2024 12:56 AM EDT [facility] MCH 30.0 26.0 - 32.0 pg LAB HEMATOLOGY METHOD 11/11/2024 12:56 AM EDT [facility] MCHC 32.7 30.7 - 35.5 g/dL LAB HEMATOLOGY METHOD 11/11/2024 12:56 AM EDT [facility] RDW 13.3 11.5 - 14.5 % LAB HEMATOLOGY METHOD 11/11/2024 12:56 AM EDT [facility] MPV 9.0 8.8 - 12.5 fL LAB HEMATOLOGY METHOD 11/11/2024 12:56 AM EDT [facility] nRBC 0.0 <=0.0 per 100 WBCs LAB HEMATOLOGY METHOD 11/11/2024 12:56 AM EDT [facility] Blood Venous blood specimen / Unknown 11/11/2024 12:42 AM EDT Nathaly Nowak MD LAB BLOOD ORDERABLES Final Resu lt Performing Organization Address City/[facility]/ZIP Co de Phone Number [facility] [address] [place] [address] * (ABNORMAL) POCT glucose meter (11/10/2024 8:25 [...] Comment 11/10/2024 8:28 PM EDT [facility] [employer] Nelda Gerber 11/11/19 8:28 PM EDT [facility]ALTH[facility] LAB Device ID [id number] 11/10/2024 8:28 PM EDT [facility] Specimen Type POC Capillary 11/10/2024 8:28 PM EDT [facility] Blood Capillary blood specimen / Unknown 11/10/2024 8:25 PM EDT 11/10/2024 8:28 PM EDT us Nathaly Nowak MD LAB POINT OF CARE TE ST DOCKED DEVICE UNSOLICITED RESULTS Final Result Performing Organization Address City/[facility]/ZIP Co de Phone Number [facility] [address] [place] [address] * (ABNORMAL) POCT glucose meter (11/10/2024 4:45 [...] 11/10/2024 4:47 PM EDT [facility] [employer] ID Esperanza Parks 11/10/2024 4:47 PM EDT [facility] Device ID [id number] 11/10/2024 4:47 PM EDT [facility] Specimen Type POC Capillary 11/10/2024 4:47 PM EDT [facility] Blood Capillary blood specimen / Unknown 11/10/2024 4:45 PM EDT 11/10/2024 4:47 PM EDT Nathaly Nowak MD LAB POINT OF CARE TE ST DOCKED DEVICE UNSOLICITED RESULTS Final Result Performing Organization Address City/State/[facility] Co de Phone Number [facility] [address] [place] [address] * (ABNORMAL) POCT glucose meter (11/10/2024 12:13 PM EDT) [facility] POCT Glucose 131(H) 74 - 99 [...] 11/10/2024 12:14 PM EDT [facility] [employer] Esperanza Parks 11/10/2024 12:14 PM EDT [facility] Device ID [id number] 11/10/2024 12:14 PM EDT [facility] Specimen Type POC Capillary 11/10/2024 12:14 PM EDT [facility] Blood Capillary blood specimen / Unknown 11/10/2024 12:13 PM EDT 11/10/2024 12:14 PM EDT us Nathaly Nowak MD LAB POINT OF CARE TE ST DOCKED DEVICE UNSOLICITED RESULTS Final Result Performing Organization Address [facility]/ZIP Co de Phone Number [facility] [address] [place] [address] * Vancomycin, Peak, Plasma Please draw ~2 hours after 0800 dose of vancomycin finishes infusing. Consider obtaining level via peripheral stick. If peripheral stick is not feasible, please ensure that line is flushed well prior to drawing level. Than... (11/10/2024 10:56 AM EDT) [facility] Vancomycin, Peak, Plasma 23.8 20.0 - 40.0 ug/mL 11/10/2024 11:25 AM EDT [facility] Blood Venous blood specimen / Unknown Venipuncture / Unknown 11/10/2024 10:56 AM EDT 11/10/2024 11:00 AM EDT Narrative [facility] - 11/10/2024 11:25 AM EDT Therapeutic Peak level: 20-40ug/mL Supra-therapeutic Peak level: >40 ug/mL us Abigail Seay MD LAB BLOOD ORDERABLES Final Res ult Performing Organization Address [facility] de Phone Number [facility] [address] [place] [address] * (ABNORMAL) POCT glucose meter (11/10/2024 8:03 AM EDT) [facility] POCT Glucose 174(H) 74 - 99 mg/dL 11/10/2024 8:04 AM EDT [facility] Comment:Accuracy of a glucos e result [...] Comment 11/10/2024 8:04 AM EDT [facility] [employer] ID Pierre Parksn 11/10/2024 8:04 AM EDT [facility] LAB Device ID [id number] 11/10/2024 8:04 AM EDT [facility] Specimen Type POC Capillary 11/10/2024 8:04 AM EDT [facility] Blood Capillary blood specimen / Unknown 11/10/2024 8:03 AM EDT 11/10/2024 8:04 AM EDT us Nathaly Nowak MD LAB POINT OF CARE TE ST DOCKED DEVICE UNSOLICITED RESULTS Final Result Performing Organization Address [facility] Co de Phone Number [facility] [address] [place] [address] * Vancomycin, Trough, Plasma Please draw ~30 minutes prior to dose due at 0800 on 11/10. Please do NOThold dose awaiting level to return. Consider obtaining level via peripheral stick. If peripheral stick is not feasible, please ensure that line is... (11/10/2024 7:27 AM EDT) Vancomycin, Trough, Plasma 16.2 10.0 - 20.0 ug/mL 11/10/2024 8:24 AM EDT [facility] Blood Venous blood specimen / Unknown Venipuncture / Unknown 11/10/2024 7:27 AM EDT 11/10/2024 7:51 AM EDT Narrative [facility] - 11/10/2024 8:24 AM EDT Therapeutic Trough level: 10-20ug/mL Supra-therapeutic Trough level: >20 ug/mL us Abigail Seay MD LAB BLOOD ORDERABLES Final Res ult Performing Organization Address [facility]/ZIP Co de Phone Number [facility] [address] [place] [address] * (ABNORMAL) CBC and Differential (11/10/2024 12:31 AM EDT) WBC Count 10.80(H) 3.70 - 10.30 10*3/uL LAB HEMATOLOGY METHOD 11/10/2024 12:53 AM EDT [facility] RBC Count 3.06(L) 4.60 - 6.10 10*6/uL LAB HEMATOLOGY METHOD 11/10/2024 12:53 AM EDT [facility] HGB 9.1(L) 13.7 - 17.5 g/dL LAB HEMATOLOGY METHOD 11/10/2024 12:53 AM EDT [facility] HCT 28.0(L) 40.0 - 51.0 % LAB HEMATOLOGY METHOD 11/10/2024 12:53 AM EDT [facility] Platelet Count 501(H) 155 - 369 10*3/uL LAB HEMATOLOGY METHOD 11/10/2024 12:53 AM EDT [facility] MCV 92 79 - 98 fL LAB HEMATOLOGY METHOD 11/10/2024 12:53 AM EDT [facility] MCH 29.7 26.0 - 32.0 pg LAB HEMATOLOGY METHOD 11/10/2024 12:53 AM EDT [facility] MCHC 32.5 30.7 - 35.5 g/dL LAB HEMATOLOGY METHOD 11/10/2024 12:53 AM EDT [facility] RDW 13.2 11.5 - 14.5 % LAB HEMATOLOGY METHOD 11/10/2024 12:53 AM EDT [facility] MPV 8.8 8.8 - 12.5 fL LAB HEMATOLOGY METHOD 11/10/2024 12:53 AM EDT [facility] nRBC 0.0 <=0.0 per 100 WBCs LAB HEMATOLOGY METHOD 11/10/2024 12:53 AM EDT [facility] Differential Type Automated LAB HEMATOLOGY METHOD 11/10/2024 12:53 AM EDT [facility] Neutrophils % 77 % LAB HEMATOLOGY METHOD 11/10/2024 12:53 AM EDT [facility] Lymphocytes % 13 % LAB HEMATOLOGY METHOD 11/10/2024 12:53 AM EDT [facility] Monocytes % 8 % LAB HEMATOLOGY METHOD 11/10/2024 12:53 AM EDT [facility] Eosinophils % 1 % LAB HEMATOLOGY METHOD 11/10/2024 12:53 AM EDT [facility] Basophils % 0 % LAB HEMATOLOGY METHOD 11/10/2024 12:53 AM EDT [facility] Immature Granulocytes % 1 % LAB HEMATOLOGY METHOD 11/10/2024 12:53 AM EDT [facility] Neutrophils Absolute 8.32(H) 1.60 - 6.10 10*3/uL LAB HEMATOLOGY METHOD 11/10/2024 12:53 AM EDT [facility] Lymphocytes Absolute 1.40 1.20 - 3.90 10*3/uL LAB HEMATOLOGY METHOD 11/10/2024 12:53 AM EDT [facility] Monocytes Absolute 0.89 0.30 - 0.90 10*3/uL LAB HEMATOLOGY METHOD 11/10/2024 12:53 AM EDT [facility] Eosinophils Absolute 0.09 0.00 - 0.50 10*3/uL LAB HEMATOLOGY METHOD 11/10/2024 12:53 AM EDT [facility] Basophils Absolute 0.04 0.00 - 0.10 10*3/uL LAB HEMATOLOGY METHOD 11/10/2024 12:53 AM EDT [facility] Immature Granulocytes Absolute 0.06 0.00 - 0.06 10*3/uL LAB HEMATOLOGY METHOD 11/10/2024 12:53 AM EDT [facility] Blood Venous blood specimen / Unknown Venipuncture / Unknown 11/10/2024 12:31 AM EDT 11/10/2024 12:37 AM EDT Narrative [facility] - 11/10/2024 12:53 AM EDT Therapeutic decision making should be based on absolute values, rather than percentages. us Nathaly Nowak MD LAB BLOOD ORDERABLES Final Resu lt [facility] [address] [place] [address] * (ABNORMAL) Comprehensive Metabolic Panel, Plasma (11/10/2024 12:31 AM EDT) Glucose, Plasma 185(H) 74 - 99 mg/dL 11/10/2024 1:05 AM EDT [facility] BUN, Plasma 9 8 - 23 mg/dL 11/10/2024 1:05 AM EDT [facility] Creatinine, Plasma 0.72 0.70 - 1.20 mg/dL 11/10/2024 1:05 AM EDT [facility] BUN/Creatinine Ratio 13 11/10/2024 1:05 AM EDT [facility] Sodium, Plasma 135(L) 136 - 145 mmol/L 11/10/2024 1:05 AM EDT [facility] Potassium, Plasma 4.0 3.6 - 4.9 mmol/L 11/10/2024 1:05 AM EDT [facility] Chloride, Plasma 106 97 - 107 mmol/L 11/10/2024 1:05 AM EDT [facility] CO2, Plasma 19(L) 22 - 29 mmol/L 11/10/2024 1:05 AM EDT [facility] Anion Gap 10 6 - 16 mmol/L 11/10/2024 1:05 AM EDT [facility] Total Calcium, Plasma 7.8(L) 8.9 - 10.2 mg/dL 11/10/2024 1:05 AM EDT [facility] Total Protein 5.6(L) 6.3 - 7.9 g/dL 11/10/2024 1:05 AM EDT [facility] Albumin, Plasma 3.1(L) 3.5 - 5.2 g/dL 11/10/2024 1:05 AM EDT [facility] AST, Plasma 33 10 - 50 U/L 11/10/2024 1:05 AM EDT [facility] ALT, Plasma 25 10 - 50 U/L 11/10/2024 1:05 AM EDT [facility] Alkaline Phosphatase, Plasma 108 40 - 115 U/L 11/10/2024 1:05 AM EDT [facility] Total Bilirubin, Plasma <0.2(L) 0.2 - 1.1 mg/dL 11/10/2024 1:05 AM EDT [facility] eGFRcr 101.4 mL/min/1.7 3m*2 11/10/2024 1:05 AM EDT [facility] Comment:Reported eGFRcr in m L/min/1.73m2 is based the CKD-EPI 2020 equation that does not use a race coefficient. Blood Venous blood specimen / Unknown Venipuncture / Unknown 11/10/2024 12:31 AM EDT 11/10/2024 12:37 AM EDT us Nathaly Nowak MD LAB BLOOD ORDERABLES Final Resu lt [facility] [address] [place] [address] * (ABNORMAL) POCT glucose meter (11/09/2024 8:04 PM EDT) [facility] POCT Glucose 114(H) 74 - 99 [...] Comment 11/09/2024 8:06 PM EDT [facility] [employer] Maximiliano Hansen II 11/09/2024 8:06 PM EDT [facility] Device ID [id number] 11/09/2024 8:06 PM EDT [facility] Specimen Type POC Capillary 11/09/2024 8:06 PM EDT [facility] Blood Capillary blood specimen / Unknown 11/09/2024 8:04 PM EDT 11/09/2024 8:06 PM EDT Nathaly Nowak MD LAB POINT OF CARE TE ST DOCKED DEVICE UNSOLICITED RESULTS Final Result Performing Organization Address City/State/[facility] Co de Phone Number [facility] [address] [place] [address] * (ABNORMAL) POCT glucose meter (11/09/2024 4:36 PM EDT) [facility] POCT Glucose 166(H) 74 - 99 [...] 11/09/2024 4:38 PM EDT [facility] [employer] IanCrow bellamyary 11/09/2024 4:38 PM EDT [facility] Device ID [id number] 11/09/2024 4:38 PM EDT [facility] Specimen Type POC Capillary 11/09/2024 4:38 PM EDT [facility] Blood Capillary blood specimen / Unknown 11/09/2024 4:36 PM EDT 11/09/2024 4:38 PM EDT Nathaly Nowak MD LAB POINT OF CARE TE ST DOCKED DEVICE UNSOLICITED RESULTS Final Result [facility] [address] [place] [address] * PICC SINGLE LUMEN (SMART[employer] LINK) (11/09/2024 1:11 PM EDT) Narrative Estefani Barraza RN - 11/09/2024 1:11 PM EDT Estefani Barraza RN 11/09/2024 1:12 PM Insert PICC line Date/Time: 11/09/2024 1:11 PM Performed by: Estefani Barraza RN Authorized by: Nathaly Nowak MD [employer] Protocol: Verbal consent obtained?: Yes Written consent [...] selection rationale: Left pacemaker Catheter Lot #: [id number] Catheter machine striper: Singspiel Catheter placed: Single lumen Catheter size: 4 Fr Catheter trimmed length: 42 Catheter threaded length: 42 Vein placed in: SVC Catheter cm indwellin Catheter cm outside: 0 Placement confirmed by: Nanveet 3CG technology Pre-procedure: Landmarks identified Ultrasound guidance: [...] Comment 11/09/2024 11:51 AM EDT [facility] [employer] Kristian Sosa 11/09/2024 11:51 AM EDT [facility] Device ID [id number] 11/09/2024 11:51 AM EDT [facility] Specimen Type POC Capillary 11/09/2024 11:51 AM EDT [facility] Blood Capillary blood specimen / Unknown 11/09/2024 11:50 AM EDT 11/09/2024 11:51 AM EDT Nathaly Nowak MD LAB POINT OF CARE TE ST DOCKED DEVICE UNSOLICITED RESULTS Final Result [facility] [address] [place] [address] * (ABNORMAL) POCT glucose meter (11/09/2024 8:14 [...] Comment 11/09/2024 8:15 AM EDT [facility] [employer] Kristian Sosa 11/09/2024 8:15 AM EDT [facility] Device ID [id number] 11/09/2024 8:15 AM EDT [facility] Specimen Type POC Capillary 11/09/2024 8:15 AM EDT [facility] Blood Capillary blood specimen / Unknown 11/09/2024 8:14 AM EDT 11/09/2024 8:15 AM EDT us Nathaly Nowak MD LAB POINT OF CARE TE ST DOCKED DEVICE UNSOLICITED RESULTS Final Result Performing Organization Address City/State/[facility] Co de Phone Number [facility] [address] [place] [address] * (ABNORMAL) CBC and Differential (11/09/2024 4:15 AM EDT) WBC Count 10.27 3.70 - 10.30 10*3/uL LAB HEMATOLOGY METHOD 11/09/2024 4:26 AM EDT [facility] RBC Count 3.14(L) 4.60 - 6.10 10*6/uL LAB HEMATOLOGY METHOD 11/09/2024 4:26 AM EDT [facility] HGB 9.2(L) 13.7 - 17.5 g/dL LAB HEMATOLOGY METHOD 11/09/2024 4:26 AM EDT [facility] HCT 28.3(L) 40.0 - 51.0 % LAB HEMATOLOGY METHOD 11/09/2024 4:26 AM EDT [facility] Platelet Count 468(H) 155 - 369 10*3/uL LAB HEMATOLOGY METHOD 11/09/2024 4:26 AM EDT [facility] MCV 90 79 - 98 fL LAB HEMATOLOGY METHOD 11/09/2024 4:26 AM EDT [facility] MCH 29.3 26.0 - 32.0 pg LAB HEMATOLOGY METHOD 11/09/2024 4:26 AM EDT [facility] MCHC 32.5 30.7 - 35.5 g/dL LAB HEMATOLOGY METHOD 11/09/2024 4:26 AM EDT [facility] RDW 13.1 11.5 - 14.5 % LAB HEMATOLOGY METHOD 11/09/2024 4:26 AM EDT [facility] MPV 8.7(L) 8.8 - 12.5 fL LAB HEMATOLOGY METHOD 11/09/2024 4:26 AM EDT [facility] nRBC 0.0 <=0.0 per 100 WBCs LAB HEMATOLOGY METHOD 11/09/2024 4:26 AM EDT [facility] Differential Type Automated LAB HEMATOLOGY METHOD 11/09/2024 4:26 AM EDT [facility] Neutrophils % 77 % LAB HEMATOLOGY METHOD 11/09/2024 4:26 AM EDT [facility] Lymphocytes % 13 % LAB HEMATOLOGY METHOD 11/09/2024 4:26 AM EDT [facility] Monocytes % 8 % LAB HEMATOLOGY METHOD 11/09/2024 4:26 AM EDT [facility] Eosinophils % 1 % LAB HEMATOLOGY METHOD 11/09/2024 4:26 AM EDT [facility] Basophils % 0 % LAB HEMATOLOGY METHOD 11/09/2024 4:26 AM EDT [facility] Immature Granulocytes % 1 % LAB HEMATOLOGY METHOD 11/09/2024 4:26 AM EDT [facility] Neutrophils Absolute 7.97(H) 1.60 - 6.10 10*3/uL LAB HEMATOLOGY METHOD 11/09/2024 4:26 AM EDT [facility] Lymphocytes Absolute 1.32 1.20 - 3.90 10*3/uL LAB HEMATOLOGY METHOD 11/09/2024 4:26 AM EDT [facility] Monocytes Absolute 0.83 0.30 - 0.90 10*3/uL LAB HEMATOLOGY METHOD 11/09/2024 4:26 AM EDT [facility] Eosinophils Absolute 0.07 0.00 - 0.50 10*3/uL LAB HEMATOLOGY METHOD 11/09/2024 4:26 AM EDT [facility] Basophils Absolute 0.03 0.00 - 0.10 10*3/uL LAB HEMATOLOGY METHOD 11/09/2024 4:26 AM EDT [facility] Immature Granulocytes Absolute 0.05 0.00 - 0.06 10*3/uL LAB HEMATOLOGY METHOD 11/09/2024 4:26 AM EDT [facility] Blood Venous blood specimen / Unknown Venipuncture / Unknown 11/09/2024 4:15 AM EDT 11/09/2024 4:18 AM EDT Narrative [facility] - 11/09/2024 4:26 AM EDT Therapeutic decision making should be based on absolute values, rather than percentages. us Nathaly Nowak MD LAB BLOOD ORDERABLES Final Resu lt [facility] [address] [place] [address] * (ABNORMAL) Comprehensive Metabolic Panel, Plasma (11/09/2024 4:15 AM EDT) Glucose, Plasma 171(H) 74 - 99 mg/dL 11/09/2024 4:47 AM EDT [facility] BUN, Plasma 9 8 - 23 mg/dL 11/09/2024 4:47 AM EDT [facility] Creatinine, Plasma 0.67(L) 0.70 - 1.20 mg/dL 11/09/2024 4:47 AM EDT [facility] BUN/Creatinine Ratio 13 11/09/2024 4:47 AM EDT [facility] Sodium, Plasma 134(L) 136 - 145 mmol/L 11/09/2024 4:47 AM EDT [facility] Potassium, Plasma 4.1 3.6 - 4.9 mmol/L 11/09/2024 4:47 AM EDT [facility] Chloride, Plasma 104 97 - 107 mmol/L 11/09/2024 4:47 AM EDT [facility] CO2, Plasma 21(L) 22 - 29 mmol/L 11/09/2024 4:47 AM EDT [facility] Anion Gap 9 6 - 16 mmol/L 11/09/2024 4:47 AM EDT [facility] Total Calcium, Plasma 8.4(L) 8.9 - 10.2 mg/dL 11/09/2024 4:47 AM EDT [facility] Total Protein 5.8(L) 6.3 - 7.9 g/dL 11/09/2024 4:47 AM EDT [facility] Albumin, Plasma 3.2(L) 3.5 - 5.2 g/dL 11/09/2024 4:47 AM EDT [facility] AST, Plasma 18 10 - 50 U/L 11/09/2024 4:47 AM EDT [facility] ALT, Plasma 17 10 - 50 U/L 11/09/2024 4:47 AM EDT [facility] Alkaline Phosphatase, Plasma 110 40 - 115 U/L 11/09/2024 4:47 AM EDT [facility] Total Bilirubin, Plasma <0.2(L) 0.2 - 1.1 mg/dL 11/09/2024 4:47 AM EDT [facility] eGFRcr 103.6 mL/min/1.7 3m*2 11/09/2024 4:47 AM EDT [facility] Comment:Reported eGFRcr in m L/min/1.73m2 is based the CKD-EPI 2020 equation that does not use a race coefficient. Blood Venous blood specimen / Unknown Venipuncture / Unknown 11/09/2024 4:15 AM EDT 11/09/2024 4:18 AM EDT us Nathaly Nowak MD LAB BLOOD ORDERABLES Final Resu lt [facility] [address] [place] [address] * (ABNORMAL) POCT glucose meter (11/09/2024 3:30 AM EDT) POCT Glucose 160(H) 74 - 99 mg/dL 11/09/2024 3:31 AM EDT [facility] Comment:Accuracy of a [...] Comment 11/09/2024 3:31 AM EDT [facility] [employer] Maximiliano Hansen II 11/09/2024 3:31 AM EDT [facility] Device ID [id number] 11/09/2024 3:31 AM EDT [facility] Specimen Type POC Capillary 11/09/2024 3:31 AM EDT [facility] Blood Capillary blood specimen / Unknown 11/09/2024 3:30 AM EDT 11/09/2024 3:31 AM EDT Nathaly Nowak MD LAB POINT OF CARE TE ST DOCKED DEVICE UNSOLICITED RESULTS Final Result Performing Organization Address City/[facility]/ZIP Co de Phone Number [facility] [address] [place] [address] * (ABNORMAL) POCT glucose meter (11/08/2024 7:21 [...] Comment 11/08/2024 7:22 PM EDT [facility] [employer] Maximiliano Hansen II 11/08/2024 7:22 PM EDT [facility] Device ID [id number] 11/08/2024 7:22 PM EDT [facility] Specimen Type POC Capillary 11/08/2024 7:22 PM EDT [facility] Blood Capillary blood specimen / Unknown 11/08/2024 7:21 PM EDT 11/08/2024 7:22 PM EDT Nathaly Nowak MD LAB POINT OF CARE TE ST DOCKED DEVICE UNSOLICITED RESULTS Final Result Performing Organization Address City/[facility]/ZIP Co de Phone Number [facility] [address] [place] [address] * (ABNORMAL) POCT glucose meter (11/08/2024 5:12 PM EDT) [facility] POCT Glucose 178(H) 74 - 99 [...] Comment 11/08/2024 5:14 PM EDT [facility] [employer] Estefani Sheth 11/08/2024 5:14 PM EDT [facility] Device ID [id number] 11/08/2024 5:14 PM EDT [facility] Specimen Type POC Capillary 11/08/2024 5:14 PM EDT [facility] Blood Capillary blood specimen / Unknown 11/08/2024 5:12 PM EDT 11/08/2024 5:14 PM EDT Nathaly Nowak MD LAB POINT OF CARE TE ST DOCKED DEVICE UNSOLICITED RESULTS Final Result Performing Organization Address City/State/[facility] Co de Phone Number [facility] [address] [place] [address] * (ABNORMAL) POCT glucose meter (11/08/2024 12:03 PM EDT) [facility] POCT Glucose 191(H) 74 - 99 [...] Comment 11/08/2024 12:05 PM EDT [facility] [employer] Estefani Sheth 11/08/2024 12:05 PM EDT [facility] Device ID [id number] 11/08/2024 12:05 PM EDT [facility] Specimen Type POC Capillary 11/08/2024 12:05 PM EDT [facility] Blood Capillary blood specimen / Unknown 11/08/2024 12:03 PM EDT 11/08/2024 12:05 PM EDT Result [facility] Nathaly Nowak MD LAB POINT OF CARE TE ST DOCKED DEVICE UNSOLICITED RESULTS Final Result Performing Organization Address [facility] de Phone Number [facility] [address] [place] [address] * Vancomycin, Peak, Plasma Please draw ~2 hours after 11/08 0600 dose of vancomycin finishes infusing.Consider obtaining level via peripheral stick. If peripheral stick is not feasible, please ensure that line is flushed well prior to drawing level.... (11/08/2024 9:24 AM EDT) [facility] Vancomycin, Peak, Plasma 29.1 20.0 - 40.0 ug/mL 11/08/2024 10:31 AM EDT [facility] Blood Venous blood specimen / Unknown Venipuncture / Unknown 11/08/2024 9:24 AM EDT 11/08/2024 9:47 AM EDT Narrative [facility] - 11/08/2024 10:31 AM EDT Therapeutic Peak level: 20-40ug/mL Supra-therapeutic Peak level: >40 ug/mL Nathaly Nowak MD LAB BLOOD ORDERABLES Final Resu lt Performing Organization Address [facility] de Phone Number [facility] [address] [place] [address] * (ABNORMAL) POCT glucose meter (11/08/2024 8:00 AM EDT) [facility] POCT Glucose 150(H) 74 - 99 mg/dL 11/08/2024 8:01 AM EDT [facility] Comment:Accuracy of a [...] Comment 11/08/2024 8:01 AM EDT [facility] [employer] Estefani Sheth 11/08/2024 8:01 AM EDT [facility] Device ID [id number] 11/08/2024 8:01 AM EDT [facility] Specimen Type POC Capillary 11/08/2024 8:01 AM EDT [facility] Blood Capillary blood specimen / Unknown 11/08/2024 8:00 AM EDT 11/08/2024 8:01 AM EDT us Nathaly Nowak MD LAB POINT OF CARE TE ST DOCKED DEVICE UNSOLICITED RESULTS Final Result [facility] [address] [place] [address] * (ABNORMAL) CBC and Differential (11/08/2024 4:39 AM EDT) WBC Count 9.18 3.70 - 10.30 10*3/uL LAB HEMATOLOGY METHOD 11/08/2024 4:58 AM EDT [facility] RBC Count 3.11(L) 4.60 - 6.10 10*6/uL LAB HEMATOLOGY METHOD 11/08/2024 4:58 AM EDT [facility] HGB 9.2(L) 13.7 - 17.5 g/dL LAB HEMATOLOGY METHOD 11/08/2024 4:58 AM EDT [facility] HCT 28.9(L) 40.0 - 51.0 % LAB HEMATOLOGY METHOD 11/08/2024 4:58 AM EDT [facility] Platelet Count 485(H) 155 - 369 10*3/uL LAB HEMATOLOGY METHOD 11/08/2024 4:58 AM EDT [facility] MCV 93 79 - 98 fL LAB HEMATOLOGY METHOD 11/08/2024 4:58 AM EDT [facility] MCH 29.6 26.0 - 32.0 pg LAB HEMATOLOGY METHOD 11/08/2024 4:58 AM EDT [facility] MCHC 31.8 30.7 - 35.5 g/dL LAB HEMATOLOGY METHOD 11/08/2024 4:58 AM EDT [facility] RDW 13.0 11.5 - 14.5 % LAB HEMATOLOGY METHOD 11/08/2024 4:58 AM EDT [facility] MPV 8.8 8.8 - 12.5 fL LAB HEMATOLOGY METHOD 11/08/2024 4:58 AM EDT [facility] nRBC 0.0 <=0.0 per 100 WBCs LAB HEMATOLOGY METHOD 11/08/2024 4:58 AM EDT [facility] Differential Type Automated LAB HEMATOLOGY METHOD 11/08/2024 4:58 AM EDT [facility] Neutrophils % 69 % LAB HEMATOLOGY METHOD 11/08/2024 4:58 AM EDT [facility] Lymphocytes % 17 % LAB HEMATOLOGY METHOD 11/08/2024 4:58 AM EDT [facility] Monocytes % 10 % LAB HEMATOLOGY METHOD 11/08/2024 4:58 AM EDT [facility] Eosinophils % 2 % LAB HEMATOLOGY METHOD 11/08/2024 4:58 AM EDT [facility] Basophils % 1 % LAB HEMATOLOGY METHOD 11/08/2024 4:58 AM EDT [facility] Immature Granulocytes % 1 % LAB HEMATOLOGY METHOD 11/08/2024 4:58 AM EDT [facility] Neutrophils Absolute 6.40(H) 1.60 - 6.10 10*3/uL LAB HEMATOLOGY METHOD 11/08/2024 4:58 AM EDT [facility] Lymphocytes Absolute 1.59 1.20 - 3.90 10*3/uL LAB HEMATOLOGY METHOD 11/08/2024 4:58 AM EDT [facility] Monocytes Absolute 0.87 0.30 - 0.90 10*3/uL LAB HEMATOLOGY METHOD 11/08/2024 4:58 AM EDT [facility] Eosinophils Absolute 0.22 0.00 - 0.50 10*3/uL LAB HEMATOLOGY METHOD 11/08/2024 4:58 AM EDT [facility] Basophils Absolute 0.05 0.00 - 0.10 10*3/uL LAB HEMATOLOGY METHOD 11/08/2024 4:58 AM EDT [facility] Immature Granulocytes Absolute 0.05 0.00 - 0.06 10*3/uL LAB HEMATOLOGY METHOD 11/08/2024 4:58 AM EDT [facility] Blood Venous blood specimen / Unknown Venipuncture / Unknown 11/08/2024 4:39 AM EDT 11/08/2024 4:49 AM EDT Narrative [facility] - 11/08/2024 4:58 AM EDT Therapeutic decision making should be based on absolute values, rather than percentages. us Nathaly Nowak MD LAB BLOOD ORDERABLES Final Resu lt [facility] [address] [place] [address] * (ABNORMAL) Comprehensive Metabolic Panel, Plasma (11/08/2024 4:39 AM EDT) Glucose, Plasma 255(H) 74 - 99 mg/dL 11/08/2024 5:20 AM EDT [facility] BUN, Plasma 10 8 - 23 mg/dL 11/08/2024 5:20 AM EDT [facility] Creatinine, Plasma 0.75 0.70 - 1.20 mg/dL 11/08/2024 5:20 AM EDT [facility] BUN/Creatinine Ratio 13 11/08/2024 5:20 AM EDT [facility] Sodium, Plasma 133(L) 136 - 145 mmol/L 11/08/2024 5:20 AM EDT [facility] Potassium, Plasma 5.2(H) 3.6 - 4.9 mmol/L 11/08/2024 5:20 AM EDT [facility] Chloride, Plasma 105 97 - 107 mmol/L 11/08/2024 5:20 AM EDT [facility] CO2, Plasma 20(L) 22 - 29 mmol/L 11/08/2024 5:20 AM EDT [facility] Anion Gap 8 6 - 16 mmol/L 11/08/2024 5:20 AM EDT [facility] Total Calcium, Plasma 7.7(L) 8.9 - 10.2 mg/dL 11/08/2024 5:20 AM EDT [facility] Total Protein 5.6(L) 6.3 - 7.9 g/dL 11/08/2024 5:20 AM EDT [facility] Albumin, Plasma 2.8(L) 3.5 - 5.2 g/dL 11/08/2024 5:20 AM EDT [facility] AST, Plasma 20 10 - 50 U/L 11/08/2024 5:20 AM EDT [facility] Comment:Hemolyzed, result ma y be falsely increased. ALT, Plasma 14 10 - 50 U/L 11/08/2024 5:20 AM EDT [facility] Alkaline Phosphatase, Plasma 119(H) 40 - 115 U/L 11/08/2024 5:20 AM EDT [facility] Total Bilirubin, Plasma <0.2(L) 0.2 - 1.1 mg/dL 11/08/2024 5:20 AM EDT [facility] eGFRcr 100.1 mL/min/1.7 3m*2 11/08/2024 5:20 AM EDT [facility] Comment:Reported eGFRcr in m L/min/1.73m2 is based the CKD-EPI 2020 equation that does not use a race coefficient. Blood Venous blood specimen / Unknown Venipuncture / Unknown 11/08/2024 4:39 AM EDT 11/08/2024 4:43 AM EDT us Nathaly Nowak MD LAB BLOOD ORDERABLES Final Resu lt [facility] [address] [place] [address] * Vancomycin, Trough, Plasma Please draw ~30 minutes prior to dose due at 0600 on 11/08. Please do NOThold dose awaiting level to return. Consider obtaining level via peripheral stick. If peripheral stick is not feasible, please ensure that line is... (11/08/2024 4:39 AM EDT) Vancomycin, Trough, Plasma 18.7 10.0 - 20.0 ug/mL 11/08/2024 5:22 AM EDT [facility] Blood Venous blood specimen / Unknown Venipuncture / Unknown 11/08/2024 4:39 AM EDT 11/08/2024 4:43 AM EDT Narrative [facility] - 11/08/2024 5:22 AM EDT Therapeutic Trough level: 10-20ug/mL Supra-therapeutic Trough level: >20 ug/mL Nathaly Nowak MD LAB BLOOD ORDERABLES Final Resu lt Performing Organization Address City/[facility]/ZIP Co de Phone Number [facility] [address] [place] [address] * (ABNORMAL) POCT glucose meter (11/07/2024 7:26 PM EDT) Pathologist [facility] POCT Glucose 172(H) 74 - 99 mg/dL [...] Comment 11/07/2024 7:28 PM EDT [facility] [employer] Maximiliano Hansen II 11/07/2024 7:28 PM EDT [facility] Device ID [id number] 11/07/2024 7:28 PM EDT [facility] Specimen Type POC Capillary 11/07/2024 7:28 PM EDT [facility] Blood Capillary blood specimen / Unknown 11/07/2024 7:26 PM EDT 11/07/2024 7:28 PM EDT Nathaly Nowak MD LAB POINT OF CARE TE ST DOCKED DEVICE UNSOLICITED RESULTS Final Result Performing Organization Address City/[facility]/ZIP Co de Phone Number [facility] [address] [place] [address] * (ABNORMAL) POCT glucose meter (11/07/2024 5:51 PM EDT) Pathologist [facility] POCT Glucose 183(H) 74 - 99 mg/dL [...] 11/07/2024 5:52 PM EDT [facility] [employer] Brigitte Castellon 11/07/2024 5:52 PM EDT [facility] Device ID [id number] 11/07/2024 5:52 PM EDT [facility] Specimen Type POC Capillary 11/07/2024 5:52 PM EDT [facility] Blood Capillary blood specimen / Unknown 11/07/2024 5:51 PM EDT 11/07/2024 5:52 PM EDT Nathaly Nowak MD LAB POINT OF CARE TE ST DOCKED DEVICE UNSOLICITED RESULTS Final Result Performing Organization Address City/[facility] Co de Phone Number [facility]ALTH[facility]ARE [facility] [address] [place] [address] * (ABNORMAL) POCT glucose meter (11/07/2024 4:47 [...] 11/07/2024 4:48 PM EDT [facility] [employer] ID Estefani Sheth 11/07/2024 4:48 PM EDT [facility] Device ID [id number] 11/07/2024 4:48 PM EDT [facility] Specimen Type POC Capillary 11/07/2024 4:48 PM EDT [facility] Blood Capillary blood specimen / Unknown 11/07/2024 4:47 PM EDT 11/07/2024 4:48 PM EDT us Nathaly Nowak MD LAB POINT OF CARE TE ST DOCKED DEVICE UNSOLICITED RESULTS Final Result Performing Organization Address City/[facility]/ZIP Co de Phone Number [facility] [address] [place] [address] * (ABNORMAL) POCT glucose meter (11/07/2024 12:22 PM EDT) Pathologist [facility] POCT Glucose 172(H) 74 - 99 mg/dL [...] Comment 11/07/2024 12:24 PM EDT [facility] [employer] Estefani Sheth 11/07/2024 12:24 PM EDT [facility] Device ID [id number] 11/07/2024 12:24 PM EDT [facility] Specimen Type POC Capillary 11/07/2024 12:24 PM EDT [facility] Blood Capillary blood specimen / Unknown 11/07/2024 12:22 PM EDT 11/07/2024 12:24 PM EDT us Nathaly Nowak MD LAB POINT OF CARE TE ST DOCKED DEVICE UNSOLICITED RESULTS Final Result [facility] [address] [place] [address] * (ABNORMAL) CBC and Differential (11/07/2024 11:37 AM EDT) [facility] WBC Count 9.96 3.70 - 10.30 10*3/uL LAB HEMATOLOGY METHOD 11/07/2024 12:33 PM EDT [facility] RBC Count 2.81(L) 4.60 - 6.10 10*6/uL LAB HEMATOLOGY METHOD 11/07/2024 12:33 PM EDT [facility] HGB 8.5(L) 13.7 - 17.5 g/dL LAB HEMATOLOGY METHOD 11/07/2024 12:33 PM EDT [facility] HCT 26.0(L) 40.0 - 51.0 % LAB HEMATOLOGY METHOD 11/07/2024 12:33 PM EDT [facility] Platelet Count 524(H) 155 - 369 10*3/uL LAB HEMATOLOGY METHOD 11/07/2024 12:33 PM EDT [facility] MCV 93 79 - 98 fL LAB HEMATOLOGY METHOD 11/07/2024 12:33 PM EDT [facility] MCH 30.2 26.0 - 32.0 pg LAB HEMATOLOGY METHOD 11/07/2024 12:33 PM EDT [facility] MCHC 32.7 30.7 - 35.5 g/dL LAB HEMATOLOGY METHOD 11/07/2024 12:33 PM EDT [facility] RDW 13.1 11.5 - 14.5 % LAB HEMATOLOGY METHOD 11/07/2024 12:33 PM EDT [facility] MPV 9.0 8.8 - 12.5 fL LAB HEMATOLOGY METHOD 11/07/2024 12:33 PM EDT [facility] nRBC 0.0 <=0.0 per 100 WBCs LAB HEMATOLOGY METHOD 11/07/2024 12:33 PM EDT [facility] Differential Type Automated LAB HEMATOLOGY METHOD 11/07/2024 12:33 PM EDT [facility] Neutrophils % 72 % LAB HEMATOLOGY METHOD 11/07/2024 12:33 PM EDT [facility] Lymphocytes % 17 % LAB HEMATOLOGY METHOD 11/07/2024 12:33 PM EDT [facility] Monocytes % 9 % LAB HEMATOLOGY METHOD 11/07/2024 12:33 PM EDT [facility] Eosinophils % 1 % LAB HEMATOLOGY METHOD 11/07/2024 12:33 PM EDT [facility] Basophils % 1 % LAB HEMATOLOGY METHOD 11/07/2024 12:33 PM EDT [facility] Immature Granulocytes % 0 % LAB HEMATOLOGY METHOD 11/07/2024 12:33 PM EDT [facility] Neutrophils Absolute 7.19(H) 1.60 - 6.10 10*3/uL LAB HEMATOLOGY METHOD 11/07/2024 12:33 PM EDT [facility] Lymphocytes Absolute 1.66 1.20 - 3.90 10*3/uL LAB HEMATOLOGY METHOD 11/07/2024 12:33 PM EDT [facility] Monocytes Absolute 0.88 0.30 - 0.90 10*3/uL LAB HEMATOLOGY METHOD 11/07/2024 12:33 PM EDT [facility] Eosinophils Absolute 0.14 0.00 - 0.50 10*3/uL LAB HEMATOLOGY METHOD 11/07/2024 12:33 PM EDT [facility] Basophils Absolute 0.05 0.00 - 0.10 10*3/uL LAB HEMATOLOGY METHOD 11/07/2024 12:33 PM EDT [facility] Immature Granulocytes Absolute 0.04 0.00 - 0.06 10*3/uL LAB HEMATOLOGY METHOD 11/07/2024 12:33 PM EDT [facility] Blood Venous blood specimen / Unknown Venipuncture / Unknown 11/07/2024 11:37 AM EDT 11/07/2024 12:24 PM EDT Narrative [facility] - 11/07/2024 12:33 PM EDT Therapeutic decision making should be based on absolute values, rather than percentages. us Nathaly Nowak MD LAB BLOOD ORDERABLES Final Resu lt [facility] [address] [place] [address] * (ABNORMAL) Comprehensive Metabolic Panel, Plasma (11/07/2024 11:37 AM EDT) Glucose, Plasma 173(H) 74 - 99 mg/dL 11/07/2024 1:31 PM EDT [facility] BUN, Plasma 13 8 - 23 mg/dL 11/07/2024 1:31 PM EDT [facility] Creatinine, Plasma 0.92 0.70 - 1.20 mg/dL 11/07/2024 1:31 PM EDT [facility] BUN/Creatinine Ratio 11/07/2024 1:31 PM EDT [facility] Sodium, Plasma 136 136 - 145 mmol/L 11/07/2024 1:31 PM EDT [facility] Potassium, Plasma 4.0 3.6 - 4.9 mmol/L 11/07/2024 1:31 PM EDT [facility] Chloride, Plasma 104 97 - 107 mmol/L 11/07/2024 1:31 PM EDT [facility] CO2, Plasma 23 22 - 29 mmol/L 11/07/2024 1:31 PM EDT [facility] Anion Gap 9 6 - 16 mmol/L 11/07/2024 1:31 PM EDT [facility] Total Calcium, Plasma 7.8(L) 8.9 - 10.2 mg/dL 11/07/2024 1:31 PM EDT [facility] Total Protein 5.7(L) 6.3 - 7.9 g/dL 11/07/2024 1:31 PM EDT [facility] Albumin, Plasma 3.0(L) 3.5 - 5.2 g/dL 11/07/2024 1:31 PM EDT [facility] AST, Plasma 15 10 - 50 U/L 11/07/2024 1:31 PM EDT [facility] ALT, Plasma 16 10 - 50 U/L 11/07/2024 1:31 PM EDT [facility] Alkaline Phosphatase, Plasma 119(H) 40 - 115 U/L 11/07/2024 1:31 PM EDT [facility] Total Bilirubin, Plasma <0.2(L) 0.2 - 1.1 mg/dL 11/07/2024 1:31 PM EDT [facility] eGFRcr 92.3 mL/min/1.7 3m*2 11/07/2024 1:31 PM EDT [facility] Comment:Reported eGFRcr in m L/min/1.73m2 is based the CKD-EPI 2020 equation that does not use a race coefficient. Blood Venous blood specimen / Unknown Venipuncture / Unknown 11/07/2024 11:37 AM EDT 11/07/2024 12:23 PM EDT us Nathaly Nowak MD LAB BLOOD ORDERABLES Final Resu lt [facility] [address] [place] [address] * Type and Screen (11/07/2024 11:37 AM [...] ORDERABLES F inal Result Performing Organization Address City/[facility]/ZIP Co de Phone Number BLOOD BANK [address] * (ABNORMAL) POCT glucose meter (11/07/2024 [...] Comment 11/07/2024 10:36 AM EDT [facility] [employer] Joy Iraheta 11/07/2024 10:36 AM EDT [facility] Device ID [id number] 11/07/2024 10:36 AM EDT [facility] Specimen Type POC Capillary 11/07/2024 10:36 AM EDT [facility] Blood Capillary blood specimen / Unknown 11/07/2024 10:34 AM EDT 11/07/2024 10:36 AM EDT Nathaly Nowak MD LAB POINT OF CARE TE ST DOCKED DEVICE UNSOLICITED RESULTS Final Result [facility] [address] [place] [address] * (ABNORMAL) POCT glucose meter (11/07/2024 9:34 [...] Comment 11/07/2024 9:36 AM EDT [facility] [employer] Brigitte Castellon 11/07/2024 9:36 AM EDT [facility] LAB Device ID [id number] 11/07/2024 9:36 AM EDT [facility] Specimen Type POC Capillary 11/07/2024 9:36 AM EDT [facility] Blood Capillary blood specimen / Unknown 11/07/2024 9:34 AM EDT 11/07/2024 9:36 AM EDT Nathaly Nowak MD LAB POINT OF CARE TE ST DOCKED DEVICE UNSOLICITED RESULTS Final Result Performing Organization Address City/State/[facility] Co de Phone Number [facility] [address] [place] [address] * (ABNORMAL) POCT glucose meter (11/07/2024 8:20 [...] Comment 11/07/2024 8:22 AM EDT [facility] [employer] Estefani Sheth 11/07/2024 8:22 AM EDT [facility] LAB Device ID [id number] 11/07/2024 8:22 AM EDT [facility] Specimen Type POC Capillary 11/07/2024 8:22 AM EDT [facility] Blood Capillary blood specimen / Unknown 11/07/2024 8:20 AM EDT 11/07/2024 8:22 AM EDT Nathaly Nowak MD LAB POINT OF CARE TE ST DOCKED DEVICE UNSOLICITED RESULTS Final Result Performing Organization Address City/[facility] de Phone Number [facility]ARE [facility] [address] [place] [address] * (ABNORMAL) POCT glucose meter (11/07/2024 7:21 AM EDT) Pathologist [facility] POCT Glucose 151(H) 74 - 99 mg/dL [...] Comment 11/07/2024 7:22 AM EDT [facility] [employer] Brigitte Castellon 11/07/2024 7:22 AM EDT [facility] Device ID [id number] 11/07/2024 7:22 AM EDT [facility] Specimen Type POC Capillary 11/07/2024 7:22 AM EDT [facility] Blood Capillary blood specimen / Unknown 11/07/2024 7:21 AM EDT 11/07/2024 7:22 AM EDT Nathaly Nowak MD LAB POINT OF CARE TE ST DOCKED DEVICE UNSOLICITED RESULTS Final Result Performing Organization Address City/[facility] Co de Phone Number [facility] [address] [place] [address] * (ABNORMAL) POCT glucose meter (11/07/2024 6:25 AM EDT) Pathologist [facility] POCT Glucose 144(H) 74 - 99 mg/dL [...] Comment 11/07/2024 6:27 AM EDT [facility] [employer] Nelda Gerber 11/08/19 6:27 AM EDT [facility] LAB Device ID [id number] 11/07/2024 6:27 AM EDT [facility] Specimen Type POC Capillary 11/07/2024 6:27 AM EDT [facility] Blood Capillary blood specimen / Unknown 11/07/2024 6:25 AM EDT 11/07/2024 6:27 AM EDT Nathaly Nowak MD LAB POINT OF CARE TE ST DOCKED DEVICE UNSOLICITED RESULTS Final Result Performing Organization Address [facility] Co de Phone Number [facility] [address] [place] [address] * (ABNORMAL) POCT glucose meter (11/07/2024 5:03 [...] Comment 11/07/2024 5:08 AM EDT [facility] [employer] Nelda Gerber 11/08/19 5:08 AM EDT [facility] Device ID [id number] 11/07/2024 5:08 AM EDT [facility] Specimen Type POC Capillary 11/07/2024 5:08 AM EDT [facility] Blood Capillary blood specimen / Unknown 11/07/2024 5:03 AM EDT 11/07/2024 5:08 AM EDT us Nathaly oNwak MD LAB POINT OF CARE TE ST DOCKED DEVICE UNSOLICITED RESULTS Final Result Performing Organization Address City/[facility]/ZIP Co de Phone Number [facility] [address] [place] [address] * (ABNORMAL) POCT glucose meter (11/07/2024 4:16 AM EDT) [facility] POCT Glucose 142(H) 74 - 99 [...] Comment 11/07/2024 4:18 AM EDT [facility] [employer] Nelda Gerber 11/08/19 4:18 AM EDT [facility] Device ID [id number] 11/07/2024 4:18 AM EDT [facility] Specimen Type POC Capillary 11/07/2024 4:18 AM EDT [facility] Blood Capillary blood specimen / Unknown 11/07/2024 4:16 AM EDT 11/07/2024 4:18 AM EDT Nathaly Nowak MD LAB POINT OF CARE TE ST DOCKED DEVICE UNSOLICITED RESULTS Final Result [facility] [address] [place] [address] * (ABNORMAL) POCT glucose meter (11/07/2024 3:21 AM EDT) [facility] POCT Glucose 141(H) 74 - 99 [...] 11/07/2024 3:23 AM EDT [facility] [employer] Nelda Gerber 11/08/19 3:23 AM EDT [facility] Device ID [id number] 11/07/2024 3:23 AM EDT [facility] Specimen Type POC Capillary 11/07/2024 3:23 AM EDT [facility] Blood Capillary blood specimen / Unknown 11/07/2024 3:21 AM EDT 11/07/2024 3:23 AM EDT Nathaly Nowak MD LAB POINT OF CARE TE ST DOCKED DEVICE UNSOLICITED RESULTS Final Result Performing Organization Address City/[facility] Co de Phone Number [facility] [address] [place] [address] * (ABNORMAL) POCT glucose meter (11/07/2024 2:10 [...] Comment 11/07/2024 2:12 AM EDT [facility] [employer] Nelda Gerber 11/08/19 2:12 AM EDT [facility]ALTH[facility]ARE LAB Device ID [id number] 11/07/2024 2:12 AM EDT [facility] Specimen Type POC Capillary 11/07/2024 2:12 AM EDT [facility] Blood Capillary blood specimen / Unknown 11/07/2024 2:10 AM EDT 11/07/2024 2:12 AM EDT Nathaly Nowak MD LAB POINT OF CARE TE ST DOCKED DEVICE UNSOLICITED RESULTS Final Result Performing Organization Address City/[facility]/ZIP Co de Phone Number [facility] [address] [place] [address] * (ABNORMAL) POCT glucose meter (11/07/2024 1:08 [...] Comment 11/07/2024 1:10 AM EDT [facility] [employer] Nelda Gerber 11/08/19 1:10 AM EDT [facility] Device ID [id number] 11/07/2024 1:10 AM EDT [facility] Specimen Type POC Capillary 11/07/2024 1:10 AM EDT [facility] Blood Capillary blood specimen / Unknown 11/07/2024 1:08 AM EDT 11/07/2024 1:10 AM EDT us Nathaly Nowak MD LAB POINT OF CARE TE ST DOCKED DEVICE UNSOLICITED RESULTS Final Result Performing Organization Address City/State/[facility] Co de Phone Number [facility] [address] [place] [address] * (ABNORMAL) POCT glucose meter (11/07/2024 12:10 AM EDT) [facility] POCT Glucose 127(H) 74 - 99 mg/dL 11/07/2024 12:13 AM EDT [facility] Comment:Accuracy of a glucos e result [...] for testing. Comment 11/07/2024 12:13 AM EDT [facility] [employer] Nelda Gerber 11/08/19 12:13 AM EDT [facility] Device ID [id number] 11/07/2024 12:13 AM EDT [facility] Specimen Type POC Capillary 11/07/2024 12:13 AM EDT [facility] Blood Capillary blood specimen / Unknown 11/07/2024 12:10 AM EDT 11/07/2024 12:13 AM EDT us Nathaly Nowak MD LAB POINT OF CARE TE ST DOCKED DEVICE UNSOLICITED RESULTS Final Result [facility] [address] [place] [address] * (ABNORMAL) POCT glucose meter (11/06/2024 11:14 [...] for testing. Comment 11/06/2024 11:16 PM EDT [facility] [employer] ID Nelda Gerber 11/07/19 11:16 PM EDT [facility] Device ID [id number] 11/06/2024 11:16 PM EDT [facility] Specimen Type POC Capillary 11/06/2024 11:16 PM EDT [facility] Blood Capillary blood specimen / Unknown 11/06/2024 11:14 PM EDT 11/06/2024 11:16 PM EDT us Nathaly Nowak MD LAB POINT OF CARE TE ST DOCKED DEVICE UNSOLICITED RESULTS Final Result Performing Organization Address City/[facility]/ZIP Co de Phone Number [facility] [address] [place] [address] * (ABNORMAL) POCT glucose meter (11/06/2024 10:07 [...] Comment 11/06/2024 10:09 PM EDT [facility] [employer] Nelda Gerber 11/07/19 10:09 PM EDT HEALTHCARE LAB Device ID [id number] 11/06/2024 10:09 PM EDT [facility] Specimen Type POC Capillary 11/06/2024 10:09 PM EDT [facility] Blood Capillary blood specimen / Unknown 11/06/2024 10:07 PM EDT 11/06/2024 10:09 PM EDT Nathaly Nowak MD LAB POINT OF CARE TE ST DOCKED DEVICE UNSOLICITED RESULTS Final Result Performing Organization Address City/[facility] Co de Phone Number [facility] [address] [place] [address] * (ABNORMAL) POCT glucose meter (11/06/2024 8:22 [...] Comment 11/06/2024 8:25 PM EDT [facility] [employer] Nelda Gerber 11/07/19 8:25 PM EDT HEALTHCARE LAB Device ID [id number] 11/06/2024 8:25 PM EDT [facility] Specimen Type POC Capillary 11/06/2024 8:25 PM EDT [facility] Blood Capillary blood specimen / Unknown 11/06/2024 8:22 PM EDT 11/06/2024 8:25 PM EDT Nathaly Nowak MD LAB POINT OF CARE TE ST DOCKED DEVICE UNSOLICITED RESULTS Final Result Performing Organization Address City/[facility]/ZIP Co de Phone Number [facility] [address] [place] [address] * (ABNORMAL) POCT glucose meter (11/06/2024 7:31 PM EDT) Pathologist [facility] POCT Glucose 359(H) 74 - 99 mg/dL [...] Comment 11/06/2024 7:32 PM EDT [facility] [employer] Nelda Gerber 11/07/19 7:32 PM EDT [facility]ALTH[facility] LAB Device ID [id number] 11/06/2024 7:32 PM EDT [facility] Specimen Type POC Capillary 11/06/2024 7:32 PM EDT [facility] Blood Capillary blood specimen / Unknown 11/06/2024 7:31 PM EDT 11/06/2024 7:32 PM EDT us Nathaly Nowak MD LAB POINT OF CARE TE ST DOCKED DEVICE UNSOLICITED RESULTS Final Result Performing Organization Address City/State/[facility] Co de Phone Number [facility] [address] [place] [address] * (ABNORMAL) POCT glucose meter (11/06/2024 6:15 PM EDT) [facility] POCT Glucose 368(H) 74 - 99 [...] 11/06/2024 6:17 PM EDT [facility] [employer] Estefani Sheth 11/06/2024 6:17 PM EDT [facility] Device ID [id number] 11/06/2024 6:17 PM EDT [facility] Specimen Type POC Capillary 11/06/2024 6:17 PM EDT [facility] Blood Capillary blood specimen / Unknown 11/06/2024 6:15 PM EDT 11/06/2024 6:17 PM EDT Nathaly Nowak MD LAB POINT OF CARE TE ST DOCKED DEVICE UNSOLICITED RESULTS Final Result Performing Organization Address City/[facility]/ZIP Co de Phone Number [facility] [address] [place] [address] * (ABNORMAL) POCT glucose meter (11/06/2024 4:57 [...] for testing. Comment 11/06/2024 4:58 PM EDT [facility] [employer] ID Estefani Sheth 11/06/2024 4:58 PM EDT [facility] Device ID [id number] 11/06/2024 4:58 PM EDT [facility] Specimen Type POC Capillary 11/06/2024 4:58 PM EDT [facility] Blood Capillary blood specimen / Unknown 11/06/2024 4:57 PM EDT 11/06/2024 4:58 PM EDT Nathaly Nowak MD LAB POINT OF CARE TE ST DOCKED DEVICE UNSOLICITED RESULTS Final Result [facility] [address] [place] [address] * (ABNORMAL) POCT glucose meter (11/06/2024 2:08 [...] Comment 11/06/2024 2:09 PM EDT [facility] [employer] ID Brigitte Castellon 11/06/2024 2:09 PM EDT [facility]ALTH[facility]ARE LAB Device ID [id number] 11/06/2024 2:09 PM EDT [facility] Specimen Type POC Capillary 11/06/2024 2:09 PM EDT [facility] Blood Capillary blood specimen / Unknown 11/06/2024 2:08 PM EDT 11/06/2024 2:09 PM EDT us Nathaly Nowak MD LAB POINT OF CARE TE ST DOCKED DEVICE UNSOLICITED RESULTS Final Result Performing Organization Address City/State/[facility] Co de Phone Number [facility] [address] [place] [address] * (ABNORMAL) POCT glucose meter (11/06/2024 12:27 [...] Comment 11/06/2024 12:28 PM EDT [facility] [employer] Jacinta Galloway 11/06/2024 12:28 PM EDT HEALTH[facility]ARE LAB Device ID [id number] 11/06/2024 12:28 PM EDT [facility] Specimen Type POC Capillary 11/06/2024 12:28 PM EDT [facility] Blood Capillary blood specimen / Unknown 11/06/2024 12:27 PM EDT 11/06/2024 12:28 PM EDT Nathaly Nowak MD LAB POINT OF CARE TE ST DOCKED DEVICE UNSOLICITED RESULTS Final Result [facility] [address] [place] [address] * (ABNORMAL) Tissue Culture and Gram Stain (11/06/2024 11:34 AM EDT) Culture Moderate Growth 7:35 AM EDT [facility] Culture 2+ Enterobacter cloacae complex(A) ANGÉLICA 11/15/2024 7:35 AM EDT [facility] Comment: This isolate has been identified using the FDA Approved [employer] [place] System The organism value for this result has been updated. These results have been appended to the previously preliminary verified report. Edited result: Previously reported as Gram Negative Jesus on 11/07/2024 at 1434 EDT. Culture 2+ Streptococcus mitis/oralis group(A) ANGÉLICA 11/15/2024 7:35 AM EDT [facility] Comment: This isolate has been identified using the FDA Approved [employer] [place] System The organism value for this result has been updated. These results have been appended to the previously preliminary verified report. Culture 2+ Pasteurella stomatis(A) ANGÉLICA 11/15/2024 7:35 AM EDT [facility] Comment: This result was determined by [employer] tof mass spectrometry using the [employer] Fair[employer] database and is for research use only. The organism value for this result has been updated. These results have been appended to the previously preliminary verified report. Gram Stain Result Few Gram negative rods(A) 11/15/2024 7:35 AM EDT [facility] Gram Stain Result Moderate Polymorphonuclear leukocytes(A) 11/15/2024 7:35 AM EDT [facility] Gram Stain Result Few Gram positive cocci in pairs(A) 11/15/2024 7:35 AM EDT [facility] Tissue Topography unknown / Unknown 11/06/2024 11:34 AM EDT 11/06/2024 12:18 PM EDT Comment:Pre-op diagnosis: Surgical wound infection [T81.49XA] Narrative [facility] - 11/15/2024 7:35 AM EDT PharmD Huntersven Mcduffiejael requests penicillin, ceftriaxone and vancomycin on Streptococcus Organism Antibiotic Method Susceptibility Enterobacter cloacae complex Amoxicillin/Clavulanate ANGÉLICA >16/8 ug/ml: Resistant Enterobacter cloacae complex Ampicillin NAGÉLICA 16 ug/ml: Resistant Enterobacter cloacae complex Ampicillin/Sulbactam [...] GENERAL ORDE LAM Edited Result - Final [facility] [address] [place] [address] * (ABNORMAL) Anaerobic Culture (11/06/2024 11:34 AM EDT) Culture No anaerobes isolated 11/14/2024 1:25 PM EDT [facility] Culture Staphylococcus pseudintermedius( A) 11/14/2024 1:25 PM EDT [facility] Comment: This result was determined by [employer] tof mass spectrometry using the Jimmy Fair[employer] database and is for research use only. This is an appended report. These results have been appended to a previously final verified report. Tissue Topography unknown / Unknown 11/06/2024 11:34 AM EDT 11/06/2024 12:18 PM EDT Comment:Pre-op diagnosis: Surgical wound infection [T81.49XA] Narrative [facility] - 11/14/2024 1:25 PM EDT [...] Edited Result - Final Performing Organization Address [facility] Co de Phone Number [facility] [address] [place] [address] * (ABNORMAL) Routine Culture and Gram Stain (11/06/2024 11:29 AM EDT) Culture Moderate Growth 5:29 PM EDT [facility] Culture Enterobacter cloacae complex(A) 11/08/2024 5:29 PM EDT [facility] Comment: This isolate has been identified using the FDA Approved [employer] [place] System For susceptibility results refer to: - [id number] The organism value for this result has been updated. These results have been appended to the previously preliminary verified report. Gram Stain Result No polymorphonuclear leukocytes seen 11/08/2024 5:29 PM EDT [facility] Gram Stain Result No organisms seen 11/08/2024 5:29 PM EDT [facility] Swab Topography unknown / Unknown 11/06/2024 11:29 AM EDT 11/06/2024 12:19 PM EDT Comment:Pre-op diagnosis: Surgical wound infection [T81.49XA] Nathaly Nowak MD LAB MICROBIOLOGY - GENERAL ATIYA FRITZ Final Result Performing Organization Address [facility] Co de Phone Number [facility] [address] [place] [address] * Fungal Culture, Routine (11/06/2024 11:29 AM EDT) Culture No Fungal Growth at 1 Week 11/13/2024 8:29 AM EDT [facility] Swab Topography unknown / Unknown 11/06/2024 11:29 AM EDT 11/06/2024 12:19 PM EDT Comment:Pre-op diagnosis: Surgical wound infection [T81.49XA] Nathaly Nowak MD LAB MICROBIOLOGY - [facility] AT[facility] Final Result [facility] [address] [place] [address] * (ABNORMAL) Anaerobic Culture (11/06/2024 11:29 AM EDT) Culture No anaerobes isolated 11/14/2024 1:25 PM EDT [facility] Culture Streptococcus mitis/oralis group(A) 11/14/2024 1:25 PM EDT [facility] Comment: This result was determined by MALDI tof mass spectrometry using the Jimmy Fairly database and is for research use only. The organism value for this result has been updated. These results have been appended to the previously preliminary verified report. This is a corrected result. Previous organism was Mixed skin clifton on 11/10/2024 at 0718 EDT. Culture Staphylococcus pseudintermedius( A) 11/14/2024 1:25 PM EDT [facility] Comment: This isolate has been identified using the FDA Approved MALDI [employer] System This is an appended report. These results have been appended to a previously final verified report. Swab Topography unknown / Unknown 11/06/2024 11:29 AM EDT 11/06/2024 12:19 PM EDT Comment:Pre-op diagnosis: Surgical wound infection [T81.49XA] Narrative [facility] - 11/14/2024 1:25 PM EDT [...] Edited Result - Final Performing Organization Address [facility]/ZIP Co de Phone Number [facility] [address] [place] [address] * Routine Culture and Gram Stain (11/06/2024 11:28 AM EDT) Culture No growth at day 4 2024 11:24 AM EDT [facility] Gram Stain Result No organisms seen 11/10/2024 11:24 AM EDT [facility] Gram Stain Result No polymorphonuclear leukocytes seen 11/10/2024 11:24 AM EDT [facility] Swab Topography unknown / Unknown 11/06/2024 11:28 AM EDT 11/06/2024 12:20 PM EDT Comment:Pre-op diagnosis: Surgical wound infection [T81.49XA] us Nathaly Nowak MD LAB MICROBIOLOGY - GENERAL ORDE LAM Final Result Performing Organization Address [facility]/[place] [address] * Fungal Culture, Routine (11/06/2024 11:28 AM EDT) Culture No Fungal Growth at 1 Week 11/13/2024 8:29 AM EDT [facility] Swab Topography unknown / Unknown 11/06/2024 11:28 AM EDT 11/06/2024 12:20 PM EDT Comment:Pre-op diagnosis: Surgical wound infection [T81.49XA] Nathaly Nowak MD LAB MICROBIOLOGY - GENERAL ORDE LAM Final Result Performing Organization Address [facility] Co de Phone Number [facility] [address] [place] [address] * Anaerobic Culture (11/06/2024 11:28 AM EDT) Pathologist [facility] Culture No growth at day 4 11/13/2024 12:53 PM EDT [facility] Swab Topography unknown / Unknown 11/06/2024 11:28 AM EDT 11/06/2024 12:20 PM EDT Comment:Pre-op diagnosis: Surgical wound infection [T81.49XA] Nathaly Nowak MD LAB MICROBIOLOGY - GENERAL ATIYA FRITZ Final Result Performing Organization Address [facility] Phone Number [facility] [address] [place] [address] * (ABNORMAL) POCT glucose meter (11/06/2024 10:16 AM EDT) [facility] POCT Glucose 194(H) 74 - 99 [...] 11/06/2024 10:18 AM EDT [facility] [employer] Lacy Griffin 11/07/19 10:18 AM EDT [facility] Device ID [id number] 11/06/2024 10:18 AM EDT [facility] Specimen Type POC Capillary 11/06/2024 10:18 AM EDT [facility] Blood Capillary blood specimen / Unknown 11/06/2024 10:16 AM EDT 11/06/2024 10:18 AM EDT Nathaly Nowak MD LAB POINT OF CARE TE ST DOCKED DEVICE UNSOLICITED RESULTS Final Result Performing Organization Address [facility] de Phone Number [facility] [address] [place] [address] * (ABNORMAL) POCT glucose meter (11/06/2024 5:58 [...] Comment 11/06/2024 6:01 AM EDT [facility] [employer] Raj Laird 11/07/19 6:01 AM EDT [facility] Device ID [id number] 11/06/2024 6:01 AM EDT [facility] Specimen Type POC Capillary 11/06/2024 6:01 AM EDT [facility] Blood Capillary blood specimen / Unknown 11/06/2024 5:58 AM EDT 11/06/2024 6:01 AM EDT Nathaly Nowak MD LAB POINT OF CARE TE ST DOCKED DEVICE UNSOLICITED RESULTS Final Result Performing Organization Address City/[facility] Co de Phone Number [facility] [address] [place] [address] * (ABNORMAL) POCT glucose meter (11/06/2024 5:36 AM EDT) Pathologist [facility] POCT Glucose 202(H) 74 - 99 mg/dL [...] Comment 11/06/2024 5:38 AM EDT [facility] [employer] Shahid Sanches 11/06/2024 5:38 AM EDT [facility] Device ID [id number] 11/06/2024 5:38 AM EDT [facility] Specimen Type POC Capillary 11/06/2024 5:38 AM EDT [facility] Blood Capillary blood specimen / Unknown 11/06/2024 5:36 AM EDT 11/06/2024 5:38 AM EDT us Nathaly Nowak MD LAB POINT OF CARE TE ST DOCKED DEVICE UNSOLICITED RESULTS Final Result Performing Organization Address [facility] de Phone Number [facility] [address] [place] [address] * (ABNORMAL) Hemoglobin A1c (11/06/2024 1:07 AM EDT) Hemoglobin A1c 7.6(H) <5.7 % 11/06/2024 11:09 AM EDT [facility] Blood Venous blood specimen / Unknown Venipuncture / Unknown 11/06/2024 1:07 AM EDT 11/06/2024 1:26 AM EDT Narrative [facility] - 11/06/2024 11:09 AM EDT HA1C Interpretive Data: Diagnosis of Diabetes: Diabetic > or = 6.5% Pre-diabetic 5.7 to 6.4% Non-diabetic < or = 5.6% Glycemic Targets for Type I and Type II Diabetics: Non- Adults <7.0% Adults <6.0% Children and Adolescents <7.5% Source: [place] [employer]. Standards of medical care in diabetes,2017. Diabetes Care.2017:40 (suppl 1):S1-S135. us Nathaly Nowak MD LAB BLOOD ORDERABLES Final Resu lt Performing Organization Address City/[facility]/ZIP Co de Phone Number [facility] [address] [place] [address] * Blood Culture (Aerobic/Anaerobet Set) (11/06/2024 1:07 AM EDT) Culture No growth at day 5 11/11/2024 2:49 AM EDT [facility] Blood Structure of right hand / Unknown Venipuncture / Unknown 11/06/2024 1:07 AM EDT 11/06/2024 2:36 AM EDT Nathaly Nowak MD LAB MICROBIOLOGY - GENERAL ORDE RABLES Final Result Performing Organization Address City/[facility] Co de Phone Number [facility] [address] [place] [address] * Blood Culture (Aerobic/Anaerobet Set) (11/06/2024 1:07 AM EDT) Culture No growth at day 5 11/11/2024 3:01 AM EDT [facility] Blood Structure of antecubital vein / Unknown Venipuncture / Unknown 11/06/2024 1:07 AM EDT 11/06/2024 2:36 AM EDT us Nathaly Nowak MD LAB MICROBIOLOGY - GENERAL ORDE LAM Final Result Performing Organization Address [facility] de Phone Number [facility] [address] [place] [address] * (ABNORMAL) Basic metabolic panel (11/06/2024 1:07 AM EDT) Glucose, Plasma 207(H) 74 - 99 mg/dL 11/06/2024 1:41 AM EDT [facility] BUN, Plasma 20 8 - 23 mg/dL 11/06/2024 1:41 AM EDT [facility] Creatinine, Plasma 0.92 0.70 - 1.20 mg/dL 11/06/2024 1:41 AM EDT [facility] BUN/Creatinine Ratio 22 11/06/2024 1:41 AM EDT [facility] Sodium, Plasma 136 136 - 145 mmol/L 11/06/2024 1:41 AM EDT [facility] Potassium, Plasma 4.5 3.6 - 4.9 mmol/L 11/06/2024 1:41 AM EDT [facility] Chloride, Plasma 104 97 - 107 mmol/L 11/06/2024 1:41 AM EDT [facility] CO2, Plasma 22 22 - 29 mmol/L 11/06/2024 1:41 AM EDT [facility] Anion Gap 10 6 - 16 mmol/L 11/06/2024 1:41 AM EDT [facility] Total Calcium, Plasma 9.0 8.9 - 10.2 mg/dL 11/06/2024 1:41 AM EDT [facility] eGFRcr 92.3 mL/min/1.7 3m*2 11/06/2024 1:41 AM EDT [facility] Comment:Reported eGFRcr in m L/min/1.73m2 is based the CKD-EPI 2020 equation that does not use a race coefficient. Blood Venous blood specimen / Unknown Venipuncture / Unknown 11/06/2024 1:07 AM EDT 11/06/2024 1:12 AM EDT us Nathaly Nowak MD LAB BLOOD ORDERABLES Final Resu lt Performing Organization Address City/[facility]/ZIP Co de Phone Number [facility] [address] [place] [address] * Phosphorus (11/06/2024 1:07 AM EDT) Phosphorus, Plasma 3.2 2.5 - 4.5 mg/dL 11/06/2024 1:41 AM EDT [facility] Blood Venous blood specimen / Unknown Venipuncture / Unknown 11/06/2024 1:07 AM EDT 11/06/2024 1:12 AM EDT us Nathaly Nowak MD LAB BLOOD ORDERABLES Final Resu lt [facility] [address] [place] [address] * Magnesium (11/06/2024 1:07 AM EDT) Magnesium, Plasma 2.2 1.9 - 2.4 mg/dL 11/06/2024 1:41 AM EDT [facility] Blood Venous blood specimen / Unknown Venipuncture / Unknown 11/06/2024 1:07 AM EDT 11/06/2024 1:12 AM EDT us Nathaly Nowak MD LAB BLOOD ORDERABLES Final Resu lt [facility] [address] [place] [address] * (ABNORMAL) CBC (11/06/2024 1:07 AM EDT) WBC Count 9.70 3.70 - 10.30 10*3/uL LAB HEMATOLOGY METHOD 11/06/2024 1:19 AM EDT [facility] RBC Count 2.89(L) 4.60 - 6.10 10*6/uL LAB HEMATOLOGY METHOD 11/06/2024 1:19 AM EDT [facility] HGB 8.8(L) 13.7 - 17.5 g/dL LAB HEMATOLOGY METHOD 11/06/2024 1:19 AM EDT [facility] HCT 26.2(L) 40.0 - 51.0 % LAB HEMATOLOGY METHOD 11/06/2024 1:19 AM EDT [facility] Platelet Count 542(H) 155 - 369 10*3/uL LAB HEMATOLOGY METHOD 11/06/2024 1:19 AM EDT [facility] MCV 91 79 - 98 fL LAB HEMATOLOGY METHOD 11/06/2024 1:19 AM EDT [facility] MCH 30.4 26.0 - 32.0 pg LAB HEMATOLOGY METHOD 11/06/2024 1:19 AM EDT [facility] MCHC 33.6 30.7 - 35.5 g/dL LAB HEMATOLOGY METHOD 11/06/2024 1:19 AM EDT [facility] RDW 13.2 11.5 - 14.5 % LAB HEMATOLOGY METHOD 11/06/2024 1:19 AM EDT [facility] MPV 8.7(L) 8.8 - 12.5 fL LAB HEMATOLOGY METHOD 11/06/2024 1:19 AM EDT [facility] nRBC 0.0 <=0.0 per 100 WBCs LAB HEMATOLOGY METHOD 11/06/2024 1:19 AM EDT [facility] Blood Venous blood specimen / Unknown Venipuncture / Unknown 11/06/2024 1:07 AM EDT 11/06/2024 1:12 AM EDT us Nathaly Nowak MD LAB BLOOD ORDERABLES Final Resu lt Performing Organization Address [facility]/ZIP Co de Phone Number [facility] [address] [place] [address] * Gold Top (11/06/2024 12:58 AM EDT) Extra Hold for add-ons 11/06/2024 3:21 AM EDT [facility] Comment:Auto resulted. Blood Venous blood specimen / Unknown 11/06/2024 12:58 AM EDT 11/06/2024 1:13 AM EDT us Nathaly Nowak MD LAB BLOOD ORDERABLES Final Resu lt Performing Organization Address City/[facility]/ZIP Co de Phone Number [facility] [address] [place] [address] * Gold Top (11/06/2024 12:58 AM EDT) Extra Hold for add-ons 11/06/2024 3:21 AM EDT [facility] Comment:Auto resulted. Blood Venous blood specimen / Unknown 11/06/2024 12:58 AM EDT 11/06/2024 1:13 AM EDT us Nathaly Nowak MD LAB BLOOD ORDERABLES Final Resu lt Performing Organization Address City/[facility]/ZIP Co de Phone Number [facility] [address] [place] [address] * Light Green Top (11/06/2024 12:58 AM EDT) Extra Hold for add-ons 11/06/2024 3:21 AM EDT [facility] Comment:Auto resulted. Blood Venous blood specimen / Unknown 11/06/2024 12:58 AM EDT 11/06/2024 1:13 AM EDT us Nathaly Nowak MD LAB BLOOD ORDERABLES Final Resu lt Performing Organization Address [facility] Co de Phone Number [facility] [address] [place] [address] * Light Blue Top (11/06/2024 12:58 AM EDT) Extra Hold for add-ons 11/06/2024 3:21 AM EDT [facility] Comment:Auto resulted. Blood Venous blood specimen / Unknown 11/06/2024 12:58 AM EDT 11/06/2024 1:13 AM EDT us Nathaly Nowak MD LAB BLOOD ORDERABLES Final Resu lt Performing Organization Address [facility] de Phone Number [facility] [address] [place] [address] * Light Blue Top (11/06/2024 12:58 AM EDT) Extra Hold for add-ons 11/06/2024 3:21 AM EDT [facility] Comment:Auto resulted. Blood Venous blood specimen / Unknown 11/06/2024 12:58 AM EDT 11/06/2024 1:13 AM EDT us Nathaly Nowak MD LAB BLOOD ORDERABLES Final Resu lt Performing Organization Address [facility] de Phone Number [facility] [address] [place] [address] * (ABNORMAL) POCT glucose meter (11/06/2024 12:45 AM EDT) POCT Glucose 204(H) 74 - 99 mg/dL 11/06/2024 12:48 AM EDT [facility] Comment:Accuracy of a [...] Comment 11/06/2024 12:48 AM EDT [facility] [employer] Raj Laird 11/07/19 12:48 AM EDT [facility] Device ID [id number] 11/06/2024 12:48 AM EDT [facility] Specimen Type POC Capillary 11/06/2024 12:48 AM EDT [facility] Blood Capillary blood specimen / Unknown 11/06/2024 12:45 AM EDT 11/06/2024 12:48 AM EDT us Nathaly Nowak MD LAB POINT OF CARE TE ST DOCKED DEVICE UNSOLICITED RESULTS Final Result [facility] [address] [place] [address] documented in this encounter Visit Diagnoses Diagnosis [...] needed, Starting on Mon11/06/24 at 0031, Until [facility] 11/14/24 at 1804, Routine, line care [...] needed, Starting on Mon11/06/24 at 0753, Until [facility] 11/14/24 at 1804, Routine, On Unit [...] Provider: Devora Camarenab)[phone] (Given - Provider: Devora Kahn Bo)1805 (Given - Provider: Devora Kahn Bo)[phone] (Given - Provider: Jonathan Vale RN) 0838 (Given - Provider: Devora Camarenab)1317 (Given - Provider: Devora Criss Bo)[phone] (Given - Provider: Devora Camarenab)203 (Given [...] Provider: Devora Bo) 0258 (Given - Provider: Jonathna Vale RN)[phone] (Given - Provider: Devora Bo) 0303 (Given - Provider: Jonathan Vale CHRISTIAN)[phone] (Given - Provider: Yazmin Bhatt, CHRISTIAN) [...] as of this encounter Care Teams Marketing Assistant Relationship Specialty Start Date End Date Asad Victor MD [address] [place] [address] PCP - General 10/07/22 documented as of this encounter
--- OUTSIDE RECORDS SUMMARY | 2024-11-06 10:47 | XMS_ITS | Encounter Summary ---
Author Organization Healthcare Address [address] [place] [address] Care Team Providers Care Moth Proofer Name Role Phone Asad Victor MD Primary Care Provider + [phone] Reason for Visit * Auth/Cert (Routine) Specialty Diagnoses / Procedures Referred By Contac t Referred To Contact Diagnoses Wound infection Post-op Vasc Sx wounds - sx on 10/17 at Nathaly Nowak MD [address] [facility] [address] [place] [address] Phone: tel: fax: [facility] A Emergency Department [address] [place] [address] Phone: tel: Referral ID Status Reason Start Date Expiration Date Visits Re quested Visits Authorized [id number] 1 1 Encounter Details Date Type Department Care Team (Late st Contact Info) Description 11/06/2024 10:47 AM EDT Anesthesia Event [facility] OPERATING ROOM [address] [place] [address] Bill Sue MD [address] [place] [address] Sabrina Mckeon PA [address] [facility] [address] [place] [address] Anesthesia Record Procedure Summary Procedure [...] any time in the past 12 m [facility], were you homeless or living [...] drink first t dino in the morning (EYE-TYPING CHECKER) to steady your nerves or to [...] and Staff Patient location during procedure: OR ENDING MACHINE OPERATOR: Asad Lechuga CRNA, DNP Performed: ENDING MACHINE OPERATOR Patient Condition Indications for airway [...] placement (Left) Location: PAV-A OR 16 / [place] OR Surgeons: Nathaly Nowak MD [facility] Mono Ana Bobby is a 64 y.o. [...] Abnormal Ventricular Rate 85 Atrial Rate 85 OR Interval 146 QRSD Interval 128 QT Interval 390 QTC Interval 464 P [place] 52 R [place] 263 T Wave [place] 57 Diagnosis Atrial-sensed ventricular-paced rhythm Diagnosis Biventricular [...] is no recent study available for direct uaqv-hk-jfid comparison. [facility] EP[facility]: Pre-operative CIED Report Assessment and Sara- Procedural Reommendations: Name: Mono Bobby Date: 10/17/2024 : 1960 Age: 64 y.o. Patient has a Career Guidance Counselor: Berger COPY READER-PM Remaining battery longevity adequate. Lead integrity test [...] RVR s/p CABG), CAD (CAD s/p multiple [place]'s and 3V CABG02/2019, 2 stents prior to CABG), carotid artery disease (carotid artery disease s/p R CEA 2016), dysrhythmias (3rd degree AV block COPY READER-P placed 08/2023 for Wenkeback with 11 sec pause), hyperlipidemia, pacemaker and PVD. Does not have angina, CHF, murmur, orthopnea, syncope or valvular heart disease. hypertension: Cardio additional comments: Follows with OSH Card last seen 09/25/24 ([place]) . Respiratory: home oxygen (2L). no asthma: [...] ENDARTERECTOMY N/A 2017 Endarterectomy Carotid Artery from [facility] CORONARY ANGIOPLASTY Left Coronary Angiography With Concomitant Left Heart Catheterization from [facility] CORONARY ARTERY BYPASS GRAFT N/A 2018 3V ELBOW SURGERY Right ENDARTERECTOMY Left 10/17/2024 common/SFA/Profunda thromboendarterectomy, EIA/BEAUTY ADVISOR stent HERNIA REPAIR KNEE ARTHROSCOPY Left VASCULAR SURGERY Left 09/21/2024 BEAUTY ADVISOR pseudoaneurym injection [5] Social History Tobacco Use [...] [facility] [address] [facility] [place] [address] Oscar Appiah MD [address] [facility] [address] [place] [address] 12/19/2024 7:30 AM EDT Appointment [facility] Vascular Lab [address] [facility] 5th Floor Wing [address], [address] [place] [address] 12/19/2024 8:00 AM EDT Appointment [facility] Vascular Lab [address] [place] [address] 12/19/2024 9:00 AM EDT Office Visit [facility] [address] [place] [address] Nathaly Nowak MD [address] [facility] [address] [place] [address] documented as of this encounter Goals Goal Patient Goal Type Associated Problems Recent Progress Patient-Stated? Author Autogenera louise Goal Care Plan Autogenerated Problem No Ekta Arnett documented as of this encounter Procedures Procedure Name Priority Date/Time Associated Diagnosis Comments PB ANESTHESIA PLACEHOLDER Routine 11/06/2024 10:58 AM EDT OR AN ELECTIVE ENDOTRACHEAL AIRWAY Routine 11/06/2024 10:58 AM EDT documented in this encounter Results * OR AN ELECTIVE ENDOTRACHEAL AIRWAY, PB ANESTHESIA PLACEHOLDER (11/06/2024 10:58 AM EDT) Narrative Asad Lechuga CRNA, DNP - 11/06/2024 10:58 AM EDT Asad Lcehuga CRNA, DNP 11/06/2024 11:05 AM Airway Date/Time: 11/06/2024 10:58 AM Reason: elective Airway not difficult General Information and Staff Patient location during procedure: OR ENDING MACHINE OPERATOR: Asad Lechuga CRNA, DNP Performed: ISH [...] documented as of this encounter Care Teams Moth Proofer Relationship Specialty Start Date End Date Asad Victor MD [address] [place] [address] PCP - General 10/07/22 documented as of this encounter
--- OUTSIDE RECORDS SUMMARY | 2024-11-18 13:10 | XMS_ITS | Encounter Summary ---
Author Organization [employer] ([place], [place], [place], [place]) Address [address] [place] [address] Care Team Providers Care C Unix Developer Name Role Phone Unavailable Primary Care Provider Unavailabl e Reason for Visit * Reason Comments Wound Care Encounter Details Date Type Department Care Team (Late st Contact Info) Description 11/18/2024 1:10 PM EDT Office Visit [facility] 1 [place] [address] Jerry Monroe Jr., MD [address] [place] [address] Non-pressure chronic ulcer of skin of [...] health nurse( if you have home health) [facility] for an appointment. documented in this [...] upper leg. Patient was admitted to the [facility] on November 05, 2024 and dischargedon November [...] is getting daily infusions at [facility] through his PICC line for antibiotics. [...] the correct patient, procedure, equipment, technical support internship, and site/side marked as required. Debridement Details [...] the correct patient, procedure, equipment, technical support internship, and site/side marked as required. Debridement Details [...] Description 11/29/2024 4:00 PM EDT Clinical Support [address] [address] 12/02/2024 2:15 PM EDT Clinical Support [address] [address] 12/04/2024 3:10 PM EDT Office Visit [address] [address] Jerry Monroe Jr., MD [address] [place] [address] 12/06/2024 4:15 PM EDT Clinical Support [address] [address] 12/09/2024 3:30 PM EDT Clinical Support [address] [address] 12/11/2024 2:40 PM EDT Office Visit [address] [address] Jerry Monroe Jr., MD [address] [place] [address] 12/13/2024 3:30 PM EDT Clinical Support [address] [address] 12/16/2024 3:30 PM EDT Clinical Support [facility] 1 [place] [address] 12/18/2024 3:00 PM EDT Office Visit [facility] 1 [place] [address] Jerry Monroe Jr., MD [address] [place] [address] 12/20/2024 3:30 PM EDT Clinical Support [facility] 1 [place] [address] documented as of this encounter Procedures Procedure [...] the correct patient, procedure, equipment, technical support internship, and site/side marked as required. Debridement Details [...] the correct patient, procedure, equipment, technical support internship, and site/side marked as required. Debridement Details [...]
--- OUTSIDE RECORDS SUMMARY | 2024-11-20 14:15 | XMS_ITS | Encounter Summary ---
Author Organization [employer] ([place], [place], [place], [place]) Address [address] [place] [address] Care Team Providers Care Slip Caster Name Role Phone Unavailable Primary Care Provider Unavailabl e Reason for Visit * Reason Comments Wound Care Nurse visit for woun d vac change, wound care and dressing change Encounter Details Date Type Department Care Team (Late st Contact Info) Description 11/20/2024 2:15 PM EDT Clinical Support [facility] 1 [place] [address] Jerry Monroe Jr., MD [address] [place] [address] Non-pressure chronic ulcer of skin of [...] Description 11/29/2024 4:00 PM EDT Clinical Support [facility] 1 [place] [address] 12/02/2024 2:15 PM EDT Clinical Support [facility] 1 [place] [address] 12/04/2024 3:10 PM EDT Office Visit [facility] 1 [place] [address] Jerry Monroe Jr., MD [address] [place] [address] 12/06/2024 4:15 PM EDT Clinical Support [address] [address] 12/09/2024 3:30 PM EDT Clinical Support [address] [address] 12/11/2024 2:40 PM EDT Office Visit [address] [address] Jerry Monroe Jr., MD [address] [place] [address] 12/13/2024 3:30 PM EDT Clinical Support [facility] [address] [address] 12/16/2024 3:30 PM EDT Clinical Support [facility] [address] [address] 12/18/2024 3:00 PM EDT Office Visit [address] [address] Jerry Monroe Jr., MD [address] [place] [address] 12/20/2024 3:30 PM EDT Clinical Support [facility] 1 [place] [address] documented as of this encounter Results * Wound Treatment (11/22/2024 5:14 PM EDT) us Jerry Monroe Jr., MD NURSING PATHWAYS ORDERABL ES Final Result documented in this encounter Visit Diagnoses Diagnosis 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
--- OUTSIDE RECORDS SUMMARY | 2024-11-22 16:15 | XMS_ITS | Encounter Summary ---
Author Organization [employer] ([place], [place], [place], [place]) Address [address] [place] [address] Care Team Providers Care Telephone Order Dispatcher Name Role Phone Unavailable Primary Care Provider Unavailabl e Reason for Visit * Reason Comments Wound Care Encounter Details Date Type Department Care Team (Late st Contact Info) Description 11/22/2024 4:15 PM EDT Clinical Support [facility] 1 [place] [address] Jerry Monroe Jr., MD [address] [place] [address] Non-pressure chronic ulcer of skin of [...] Sign Reading Time Taken Comments Blood Pressure 157/69 11/22/2024 4:27 PM EDT Pulse 69 11/22/2024 4:27 PM EDT Temperature 36.5 C (97.7 F) 11/22/2024 4:27 PM EDT Respiratory Rate 18 11/22/2024 4:27 PM EDT Oxygen Saturation - - Inhaled Oxygen Concentration - - Weight - - Height - - Body Mass Index - - documented in this encounter Progress Notes * Kori Peña RN - 11/22/2024 4:15 PM EDT Images from the original note were not included. Attached media from the original note were not included. 11/22/24 1633 Wound 11/18/24 Leg upper Left;Medial Date First Assessed/Time First Assessed: 11/18/24 1505 Wound Approximate Age at First Assessment (Weeks): 4 weeks Location: Leg upper Wound Location Orientation: Left;Medial Wound Image Images linked Site Assessment Granulation;Sloughing Sara-Wound Assessment Scarred Wound Length (cm) 5.5 cm Wound Width (cm) 1 cm Wound Surface Area (cm^2) 5.5 cm^2 Wound Depth (cm) 5.5 cm Wound Volume (cm^3) 30.25 cm^3 Margins Well-defined edges Wound Healing % 5 Drainage Description Serosanguineous Drainage Amount Moderate Odor None Wound Bed Granulation (%) 95 % Wound Bed Slough (%) 5 % Non-staged Wound Description Full thickness * Kori Peña RN - 11/22/2024 4:15 PM EDT Images from the original note were not included. Attached media from the original note were not included. 11/22/24 1637 Wound 11/18/24 Groin Left Date First Assessed/Time First Assessed: 11/18/24 1508 Wound Approximate Age at First Assessment (Weeks): 4 weeks Location: Groin Wound Location Orientation: Left Wound Image Images linked Site Assessment Granulation;Sloughing Sara-Wound Assessment Scarred Wound Length (cm) 9.5 cm Wound Width (cm) 5.4 cm Wound Surface Area (cm^2) 51.3 cm^2 Wound Depth (cm) 4.5 cm Wound Volume (cm^3) 230.85 cm^3 Undermining 2.7 cm Undermining Clock Position of Wound 1 Undermining Clock Position End of Wound 2 Margins Well-defined edges Wound Healing % 11 Drainage Description Serosanguineous Drainage Amount Large Odor None Wound Bed Granulation (%) 80 % Wound Bed Slough (%) 20 % Non-staged Wound Description Full thickness * Kori Peña RN - 11/22/2024 4:15 PM EDT - Groin: 1 coiled black foam removed, 1 coiled black foam applied - Le piece of white foam and 1 piece of black foam removed, 1 piece of white foam and 1 piece of black foam applied. Orders followed as below for non-provider visit Remove dressings. Clean wound with 0.9 % [...] 3x week Use y connector to connect wounds both wounds Patient in pain with groin wound during dressing change POC: Dressings to be changed 3 times a week. Will need nurse visits 2 times a week for NPWT dressing changes. Return in one week for follow up appointment. The week of , change NPWT dressing on Monday and Monday only. Use above orders for all non-provider visits. Education: Patient educated on signs/symptoms of infection and to go to the ER if any issues with wound vac occur. documented in this encounter Plan of Treatment Upcoming Encounters Date Type Department Care Team (Late st Contact Info) Description 11/29/2024 4:00 PM EDT Clinical Support [facility] [place] [address] [place] [address] 12/02/2024 2:15 PM EDT Clinical Support [facility] [place] 1 [place] [address] 12/04/2024 3:10 PM EDT Office Visit [facility] [place] 1 [place] [address] Jerry Monroe Jr., MD [address] [place] [address] 12/06/2024 4:15 PM EDT Clinical Support [facility] [place] 1 [place] [address] 12/09/2024 3:30 PM EDT Clinical Support [facility] 1 [place] [address] 12/11/2024 2:40 PM EDT Office Visit [facility] [place] [address] [place] [address] Jerry Monroe Jr., MD [address] [place] [address] 12/13/2024 3:30 PM EDT Clinical Support [facility] [place] 1 [place] [address] 12/16/2024 3:30 PM EDT Clinical Support [facility] [place] 1 [place] [address] 12/18/2024 3:00 PM EDT Office Visit [facility] [place] [address] [place] [address] Jerry Monroe Jr., MD [address] [place] [address] 12/20/2024 3:30 PM EDT Clinical Support [facility] [place] [address] [place] [address] documented as of this encounter Procedures Procedure Name Priority Date/Time Associated Diagnosis Comments WOUND TREATMENT Routine 11/22/2024 5:14 PM EDT 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
--- OUTSIDE RECORDS SUMMARY | 2024-11-27 14:20 | XMS_ITS | Encounter Summary ---
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] upper leg. Patient was admitted to the [facility] on November 05, 2024 and [...] line. Patient is getting daily infusions at [facility] through his PICC line for [...] provider verified the correct patient, procedure, equipment, respiratory support technician, and site/side marked as required. Debridement Details [...] provider verified the correct patient, procedure, equipment, respiratory support technician, and site/side marked as required. Debridement Details [...] Description 11/29/2024 4:00 PM EDT Clinical Support [facility] [address] [place] [phone] 12/02/2024 2:15 PM EDT Clinical Support [facility] [address] [place] [address] 12/04/2024 3:10 PM EDT Office Visit [facility] 1 [place] [address] Jerry Monroe Jr., MD [address] [place] [address] 12/06/2024 4:15 PM EDT Clinical Support [facility] 1 [place] [address] 12/09/2024 3:30 PM EDT Clinical Support [facility] 1 [place] [address] 12/11/2024 2:40 PM EDT Office Visit [facility] 1 [place] [address] Jerry Monroe Jr., MD [address] [place] [address] 12/13/2024 3:30 PM EDT Clinical Support [facility] [address] [place] [address] 12/16/2024 3:30 PM EDT Clinical Support [facility] 1 [place] [address] 12/18/2024 3:00 PM EDT Office Visit [facility] 1 [place] [address] Jerry Monroe Jr., MD [address] [place] [address] 12/20/2024 3:30 PM EDT Clinical Support [facility] [address] [place] [address] documented as of this encounter Procedures Procedure [...] provider verified the correct patient, procedure, equipment, respiratory support technician, and site/side marked as required. Debridement Details [...] provider verified the correct patient, procedure, equipment, respiratory support technician, and site/side marked as required. Debridement Details [...]
--- OUTSIDE RECORDS SUMMARY | 2024-11-29 08:20 | XMS_ITS | Encounter Summary ---
Author Organization [facility] Address [address] [place] [address] Care Team Providers Care Adzing And Boring Machine Operator Name Role Phone Asad Victor MD Primary Care Provider + [phone] Encounter Details Date Type Department Care Team [...] drink first t dino in the morning (EYE-GRAIN MERCHANDISER) to steady your nerves or to get [...] Description 11/29/2024 2:30 PM EDT Office Visit [facility] [address] [facility] [place] [address] Oscar Appiah MD [address] [facility] [address] [place] [address] 12/19/2024 7:30 AM EDT Appointment [facility] [address] Floor [address] [place] [address] 12/19/2024 8:00 AM EDT Appointment [facility] [address] Floor [address] [place] [address] 12/19/2024 9:00 AM EDT Office Visit [facility] [address] Floor [address] [place] [address] Nathaly Nowak MD [address] [place] [address] documented as of this encounter Goals Goal [...] documented as of this encounter Care Teams Adzing And Boring Machine Operator Relationship Specialty Start Date End Date Asad Victor MD [address] [place] [address] PCP - General 10/07/22 documented as of this encounter
--- OUTSIDE RECORDS SUMMARY | 2024-11-29 08:22 | XMS_ITS | Encounter Summary ---
Author Organization [employer] ([place], [place], [place], [place]) Address [address] [place] [address] Care Team Providers Care Well Service Floor Worker Name Role Phone Unavailable Primary Care Provider [...] Clinical Support [facility] [address] [address] 12/02/2024 2:15 PM EDT Clinical Support [facility] Care [address] [address] 12/04/2024 3:10 PM EDT Office Visit [address] [address] Jerry Monroe Jr., MD [address] [place] [address] 12/06/2024 4:15 PM EDT Clinical Support [facility] Care [address] [address] 12/09/2024 3:30 PM EDT Clinical Support [facility] [address] [address] 12/11/2024 2:40 PM EDT Office Visit [facility] 1 [place] [address] Jerry Monroe Jr., MD [address] [place] [address] 12/13/2024 3:30 PM EDT Clinical Support [facility] 1 [place] [address] 12/16/2024 3:30 PM EDT Clinical Support [facility] 1 [place] [address] 12/18/2024 3:00 PM EDT Office Visit [facility] 1 [place] [address] Jerry Monroe Jr., MD [address] [place] [address] 12/20/2024 3:30 PM EDT Clinical Support [facility] 1 [place] [address] documented as of this encounter Visit Diagnoses Not on filedocumented in this encounter
--- OUTSIDE RECORDS SUMMARY | 2024-11-29 08:22 | XMS_ITS | Encounter Summary ---
Author Organization Healthcare Address [address] [id number] Care Team Providers Care Social Director Name Role Phone Asad Victor MD Primary Care Provider + [phone] Reason for Visit * Reason Onset Date Comments [facility]CN Clinical Concern/Question 11/15/2024 Encounter Details Date Type Department Care Team (Late st Contact Info) Description 11/15/2024 Telephone [facility] [address] [facility] 5th Floor [address] [place] [address] Nathaly Nowak MD [address] [facility] [address] [place] [address] [facility] Clinical Concern/Question Social History [...] drink first t dino in the morning (EYE-WIND TURBINE ERECTOR) to steady your nerves or to get [...] encounter Miscellaneous Notes * Telephone Encounter - Jacinta Nick RN - 11/28/2024 1:09 PM EDT Called and spoke with patient regarding this. Patient states that he has been receiving his wound care through [facility] in [place]. Records requested from there. Post-op appointment request sent to be scheduled. No other questions or concerns at this time. * Telephone Encounter - Inna Ovalle - 11/15/2024 11:17 AM EDT Clinical Concern/Question Reason for Call: Patient is calling he had surgery on 11/05 and thought he would be coming to the clinic for wound care on Monday, Monday and Monday. I don't see any appts out there for him. Pleasecall patient back with info. Thank you Best contact number: [phone] (mobile) Optimal time of day to reach caller: ANYTIME Additional comments/information from caller: None Note: Please do not reply to this message. Follow-up communication and further actions as a result of this message need to be communicated with the patient directly, if the patient is not active onMyChart. If the patient is active on MyChart, they will receive notification of the communication/outcome via MyChart. documented in this encounter Plan of Treatment Upcoming Encounters Date Type Department Care Team (Late st Contact Info) Description 11/29/2024 2:30 PM EDT Office Visit [facility] [place] [address] [place] [address] Oscar Appiah MD [address] [facility] 100 [place] [address] 12/19/2024 7:30 AM EDT Appointment [facility] Vascular Lab [address] 5th Floor [address] [place] [address] 12/19/2024 8:00 AM EDT Appointment [facility] [address] 5th Floor [address] [place] [address] 12/19/2024 9:00 AM EDT Office Visit [facility] [address] [place] [address] Nathaly Nowak MD [address] [facility] [address] [place] [address] documented as of this encounter Goals Goal [...] as of this encounter Care Teams Social Director Relationship Specialty Start Date End Date Asad Victor MD [address] [place] [address] PCP - General 10/07/22 documented as of this encounter
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
--- OUTSIDE RECORDS SUMMARY | 2024-11-29 08:23 | XMS_ITS | Encounter Summary ---
Author Organization [facility] Address [address] [place] [address] Care Team Providers Care Digital Account Manager Name Role Phone Asad Victor MD Primary Care Provider + [phone] Encounter Details Date Type Department Care Team [...] first t dino in the morning (EYE-GROUP HOME MANAGER) to steady your nerves or to [...] PM EDT Office Visit [facility] [address] [facility] [place] [address] Oscar Appiah MD [address] [place] [address] 12/19/2024 7:30 AM EDT Appointment [facility] Vascular Lab [address] [place] [address] 12/19/2024 8:00 AM EDT Appointment [facility] Vascular Lab [address] [place] [address] 12/19/2024 9:00 AM EDT Office Visit [facility] Comprehensive Vascular Clinic [address] [place] [address] Nathaly Nowak MD [address] [place] [address] documented as of this encounter Goals Goal [...] as of this encounter Care Teams Digital Account Manager Relationship Specialty Start Date End Date Asad Victor MD [address] [place] [address] PCP - General 10/07/22 documented as of this encounter
[2024-11-29] MEDS: MICAFUNGIN SODIUM IV (08:24)
[2024-11-29] MEDS: SODIUM CHLORIDE 0.9% IV (08:24)
--- OUTSIDE RECORDS SUMMARY | 2024-11-29 08:24 | XMS_ITS | Encounter Summary ---
Author Organization Healthcare Address [address] [id number] Care Team Providers Care Gravity Prospecting Operator Name Role Phone Asad Victor MD Primary Care Provider + [phone] Encounter Details Date Type Department Care Team (Late st Contact Info) Description 10/22/2024 Telephone Vascular Surgery [address] [place] [address] Alison Beltrán, INVESTMENT BROKER, DNP [address] [facility] [address] [place] [address] Social History Tobacco Use Types Packs/Day Years [...] drink first t dino in the morning (EYE-CIRCULATION ASSISTANT) to steady your nerves or to [...] Notes * Telephone Encounter - Alison Beltrán, INVESTMENT BROKER, DNP - 10/22/2024 11:39 AM EDT Returned patient call. Patient s/p left common/superficial/profunda femoral thromboendarterectomy with bovine patch repair and left external iliac artery/ELECTROENCEPHALOGRAPH TECHNICIAN stent with Dr Gautam on 10/17/24. Patient [...] Description 11/29/2024 2:30 PM EDT Office Visit [facility] [address] [place] [address] Oscar Appiah MD [address] [facility] [address] [place] [address] 12/19/2024 7:30 AM EDT Appointment [facility] Lab [address] [place] [address] 12/19/2024 8:00 AM EDT Appointment [facility] [address] [place] [address] 12/19/2024 9:00 AM EDT [facility] [address] 5th Floor Wing D, [address] [place] [address] Nathaly Nowak MD [address] [facility] [address] [place] [address] documented as of this encounter [...] documented as of this encounter Care Teams Gravity Prospecting Operator Relationship Specialty Start Date End Date Asad Victor MD [address] [place] [address] PCP - General 10/07/22 documented as of this encounter
--- OUTSIDE RECORDS SUMMARY | 2024-11-29 08:24 | XMS_ITS | Encounter Summary ---
Author Organization Healthcare Address [address] [place] [address] Care Team Providers Care Principal Network Architect Name Role Phone Asad Victor MD Primary Care Provider + [phone] Encounter Details Date Type Department Care Team (Late st Contact Info) Description 11/27/2024 Orders Only [address] [address] Vaishali Kraus MD [address] [place] [address] [address] [place] [address] Therapeutic drug monitoring (Primary Dx) [...] any time in the past 12 m [facility], were you homeless or living [...] drink first t dino in the morning (EYE-BILLING ADJUDICATOR) to steady your nerves or to get [...] Description 11/29/2024 2:30 PM EDT Office Visit [facility] [address] [place] [address] Oscar Appiah MD [address] [facility] [address] [place] [address] 12/19/2024 7:30 AM EDT Appointment [facility] Lab [address] 5th Floor Wing D, [address] [place] [address] 12/19/2024 8:00 AM EDT Appointment [facility] [address] 5th [address], [address] [place] [address] 12/19/2024 9:00 AM EDT Office Visit [facility] [address] 5th [address], [address] [place] [address] Nathaly Nowak MD [address] [place] [address] Scheduled Orders Name Type Priority Associated Diagnoses [...] documented as of this encounter Care Teams Principal Network Architect Relationship Specialty Start Date End Date Asad Victor MD [address] [place] [address] PCP - General 10/07/22 documented as of this encounter
--- OUTSIDE RECORDS SUMMARY | 2024-11-29 08:24 | XMS_ITS | Encounter Summary ---
Author Organization Healthcare Address [address] [place] [address] Care Team Providers Care Plate Drying Machine Tender Name Role Phone Asad Victor MD Primary Care Provider + [phone] Encounter Details Date Type Department Care Team (Late st Contact Info) Description 10/17/2024 Orders Only External Location [address] [place] [address] Provider, External Social History Tobacco Use Types [...] in the past 12 m [facility], were you homeless or living in [...] drink first t dino in the morning (EYE-HEDIS REVIEW NURSE) to steady your nerves or to get rid of a hangover? 0 10/18/2021 CAGE Questionnaire Score 0 022 Utilities Answer Date Recorded In the past 12 months has th e [employer], gas, oil, or water [employer] threatened to shut off services in your [...] Description 11/29/2024 2:30 PM EDT Office Visit [facility] [address] [facility] [place] [address] Oscar Appiah MD [address] [facility] [address] [place] [address] 12/19/2024 7:[address] [facility] Vascular Lab [address] 5th Floor [address], [address] [place] [address] 12/19/2024 8:[address] [facility] Lab [address] 5th Floor [address], [address] [place] [address] 12/19/2024 9:00 AM EDT Office Visit [facility] [address] 5th Floor Wing [address], [address] [place] [address] Nathaly Nowak MD [address] [place] [address] documented as of this encounter Goals Goal [...] documented as of this encounter Care Teams Plate Drying Machine Tender Relationship Specialty Start Date End Date Asad Victor MD [address] [place] [address] PCP - General 10/07/22 documented as of this encounter
--- OUTSIDE RECORDS SUMMARY | 2024-11-29 08:24 | XMS_ITS | Encounter Summary ---
Author Organization [facility] Address [address] [place] [address] Care Team Providers Care Volleyball Referee Name Role Phone Asad Victor MD Primary Care Provider + [phone] Encounter Details Date Type Department Care Team [...] drink first t dino in the morning (EYE-RESTAURANT SERVER) to steady your nerves or to get [...] EDT Office Visit [facility] [address] [place] [address] Oscar Appiah MD [address] [address] 12/19/2024 7:30 AM EDT Appointment [facility] Lab [address] 5th Floor [address], [address] [place] [address] 12/19/2024 8:00 AM EDT Appointment [facility] [address] [facility] 5th Floor Wing D, [address] [place] [address] 12/19/2024 9:00 AM EDT Office Visit [facility] [address] 5th Floor [address], [address] [place] [address] Nathaly Nowak MD [address] [facility] [address] [place] [address] documented as of this encounter [...] documented as of this encounter Care Teams Volleyball Referee Relationship Specialty Start Date End Date Asad Victor MD [address] [place], [place] [id number] PCP - General 10/07/22 documented as of this encounter
[2024-11-29 08:25] VITALS: BP 138/50; PULSE 68; RESP 20; TEMP 36.6; O2SAT 98
--- OUTSIDE RECORDS SUMMARY | 2024-11-29 08:25 | XMS_ITS | Encounter Summary ---
Author Organization [employer] ([place], [place], [place], [place]) Address [address] [place] [address] Care Team Providers Care Student Recruiter Name Role Phone Unavailable Primary Care Provider [...] Description 11/29/2024 4:00 PM EDT Clinical Support [facility] [address] [address] 12/02/2024 2:15 PM EDT Clinical Support [facility] [address] [address] 12/04/2024 3:10 PM EDT Office Visit [address] [address] Jerry Monroe Jr., MD [address] [place] [address] 12/06/2024 4:15 PM EDT Clinical Support [facility] [address] [address] 12/09/2024 3:30 PM EDT Clinical Support [facility] [address] [address] 12/11/2024 2:40 PM EDT Office Visit [facility] 1 [place] [address] Jerry Monroe Jr., MD [address] [place] [address] 12/13/2024 3:30 PM EDT Clinical Support [facility] 1 [place] [address] 12/16/2024 3:30 PM EDT Clinical Support [facility] 1 [place] [address] 12/18/2024 3:00 PM EDT Office Visit [facility] 1 [place] [address] Jerry Monroe Jr., MD [address] [place] [address] 12/20/2024 3:30 PM EDT Clinical Support [facility] 1 [place] [address] documented as of this encounter Visit Diagnoses Not on filedocumented in this encounter
--- OUTSIDE RECORDS SUMMARY | 2024-11-29 08:25 | XMS_ITS | Referral Summary ---
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); Localized tissue (HCC); Other specified local infections of the skin and subcutaneous tissue; Diabetes mellitus with skin ulcer (HCC) 11/22/2024 4:15 PM EDT Clinical Support [facility] 1 [place] [address] Jerry Monroe Jr., MD 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) 11/20/2024 Travel 11/20/2024 2:15 PM EDT Clinical Support [facility] [place] 1 [place] [address] Jerry Monroe Jr., MD 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) 11/18/2024 Travel 11/18/2024 1:10 PM EDT Office Visit [facility] [address] [address] Jerry Monroe Jr., MD Non-pressure chronic ulcer [...] Description 11/29/2024 4:00 PM EDT Clinical Support [address] [address] 12/02/2024 2:15 PM EDT Clinical Support [address] [address] 12/04/2024 3:10 PM EDT Office Visit [address] [address] Jerry Monroe Jr., MD [address] [place] [address] 12/06/2024 4:15 PM EDT Clinical Support [address] [address] 12/09/2024 3:30 PM EDT Clinical Support [address] [address] 12/11/2024 2:40 PM EDT Office Visit [address] [address] Jerry Monroe Jr., MD [address] [place] [address] 12/13/2024 3:30 PM EDT Clinical Support [facility] 1 [place] [address] 12/16/2024 3:30 PM EDT Clinical Support [facility] 1 [place] [address] 12/18/2024 3:00 PM EDT Office Visit [facility] 1 [place] [address] Jerry Monroe Jr., MD [address] [place] [address] 12/20/2024 3:30 PM EDT Clinical Support [facility] [place] 1 [place] [address] Procedures Procedure Name Priority Date/Time Associated Diagnosis [...] tissue from Last 3 Months Results * VA DEBRIDEMENT MUSCLE &/FASCIA 1ST [...] verified the correct patient, procedure, equipment, support coordinator, and site/side marked as required. [...] verified the correct patient, procedure, equipment, support coordinator, and site/side marked as required. [...] verified the correct patient, procedure, equipment, support coordinator, and site/side marked as required. [...] 11/18/24 Leg upper Left;Medial Performed by: Jerry Monore Jr., MD Authorized by: Jerry Monroe Jr., MD Consent Consent obtained? written Consent given by: patient Risks discussed? procedural risks discussed Immediately prior to the procedure a time out was called and the performing provider verified the correct patient, procedure, equipment, support coordinator, and site/side marked as required. [...] from Last 3 Months Insurance [facility] ADV DUAL COMPLETE MEDICAID OF [place]
--- OUTSIDE RECORDS SUMMARY | 2024-11-29 08:25 | XMS_ITS | Clinical Summary ---
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); Localized tissue (HCC); Other specified local infections of the skin and subcutaneous tissue; Diabetes mellitus with skin ulcer (HCC) 11/27/2024 Travel 11/22/2024 4:15 PM EDT Clinical Support [facility] [address] [address] Jerry Monroe Jr., MD 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) 11/20/2024 2:15 PM EDT Clinical Support [facility] [place] 1 [place] [address] Jerry Monroe Jr., MD 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) 11/20/2024 Travel 11/18/2024 1:10 PM EDT Office Visit [facility] [place] 1 [place] [address] Jerry Monroe Jr., MD Non-pressure chronic ulcer [...] Description 11/29/2024 4:00 PM EDT Clinical Support [address] [address] 12/02/2024 2:15 PM EDT Clinical Support [address] [address] 12/04/2024 3:10 PM EDT Office Visit [address] [address] Jerry Monroe Jr., MD [address] [place] [address] 12/06/2024 4:15 PM EDT Clinical Support [address] [address] 12/09/2024 3:30 PM EDT Clinical Support [address] [address] 12/11/2024 2:40 PM EDT Office Visit [address] [address] Jerry Monroe Jr., MD [address] [place] [address] 12/13/2024 3:30 PM EDT Clinical Support [facility] 1 [place] [address] 12/16/2024 3:30 PM EDT Clinical Support [facility] 1 [place] [address] 12/18/2024 3:00 PM EDT Office Visit [facility] 1 [place] [address] Jerry Monroe Jr., MD [address] [place] [address] 12/20/2024 3:30 PM EDT Clinical Support [facility] 1 [place] [address] Health Maintenance Due Date Last [...] Final Result from Last 3 Months Insurance [facility] MCR ADV DUAL COMPLETE MEDICAID OF [place]
--- OUTSIDE RECORDS SUMMARY | 2024-11-29 08:26 | XMS_ITS | Encounter Summary ---
Author Organization Healthcare Address [address] [place] [address] Care Team Providers Care Transcription Name Role Phone Asad Victor MD Primary Care Provider + [phone] Encounter Details Date Type Department Care Team (Late st Contact Info) Description 11/15/2024 Clinical Support [address] [place] [address] Charly Orlando, PharmD [address] [place] [address] [address] [place] [address] Social History Tobacco Use Types [...] drink first t dino in the morning (EYE-CENTRAL STERILE TECH) to steady your nerves or to get rid of a hangover? 0 10/18/2021 CAGE Questionnaire Score 0 022 Utilities Answer Date Recorded In the past 12 months has th e [employer], gas, oil, or water company threatened to [...] PM EDT Office Visit [employer] [facility] [address] [facility] [place] [address] Oscar Appiah MD [address] [facility] [address] [place] [address] 12/19/2024 7:30 AM EDT Appointment [facility] Lab [address] 5th Floor [address] [place] [address] 12/19/2024 8:00 AM EDT Appointment [facility] [address] [facility] 5th Floor Wing D, [address] [place] [address] 12/19/2024 9:00 AM EDT Office Visit [facility] [address] [facility] 5th Floor Wing [address], [address] [place] [address] Nathaly Nowak MD [address] [place] [address] documented as of this encounter [...] documented as of this encounter Care Teams Transcription Relationship Specialty Start Date End Date Asad Victor MD [address] [place] [address] PCP - General 10/07/22 documented as of this encounter
--- OUTSIDE RECORDS SUMMARY | 2024-11-29 08:26 | XMS_ITS | Encounter Summary ---
Author Organization [employer] ([place], [place], [place], [place]) Address [address] [place] [address] Care Team Providers Care Men'S Locker Room Attendant Name Role Phone Unavailable Primary Care [...] Description 11/29/2024 4:00 PM EDT Clinical Support [facility] [address] [address] 12/02/2024 2:15 PM EDT Clinical Support [facility] [address] [address] 12/04/2024 3:10 PM EDT Office Visit [address] [address] Jerry Monroe Jr., MD [address] [place] [address] 12/06/2024 4:15 PM EDT Clinical Support [facility] [address] [address] 12/09/2024 3:30 PM EDT Clinical Support [facility] [address] [address] 12/11/2024 2:40 PM EDT Office Visit [facility] 1 [place] [address] Jerry Monroe Jr., MD [address] [place] [address] 12/13/2024 3:30 PM EDT Clinical Support [facility] 1 [place] [address] 12/16/2024 3:30 PM EDT Clinical Support [facility] 1 [place] [address] 12/18/2024 3:00 PM EDT Office Visit [facility] 1 [place] [address] Jerry Monroe Jr., MD [address] [place] [address] 12/20/2024 3:30 PM EDT Clinical Support [facility] 1 [place] [address] documented as of this encounter Visit Diagnoses Not on filedocumented in this encounter
--- OUTSIDE RECORDS SUMMARY | 2024-11-29 08:26 | XMS_ITS | Encounter Summary ---
Author Organization Healthcare Address [address] [place] [address] Care Team Providers Care Paint Formulator Name Role Phone Asad Victor MD Primary Care Provider + [phone] Encounter Details Date Type Department Care Team (Late st Contact Info) Description 11/05/2024 Orders Only External Location [address] [place] [address] Provider, External Social History Tobacco Use Types [...] first t dino in the morning (EYE-SOIL SCIENTIST) to steady your nerves or to get rid of a hangover? 0 10/18/2021 CAGE Questionnaire Score 0 022 Utilities Answer Date Recorded In the past 12 months has th e [employer], gas, oil, or water company threatened to [...] Description 11/29/2024 2:30 PM EDT Office Visit [facility] [address] [facility] [place] [address] Oscar Appiah MD [address] [facility] [address] [place] [address] 12/19/2024 7:30 AM EDT Appointment [facility] Lab [address] 5th Floor [address], [address] [place] [address] 12/19/2024 8:00 AM EDT Appointment [facility] [address] 5th Floor Wing [address], [address] [place] [address] 12/19/2024 9:00 AM EDT Office Visit [facility] [address] 5th Floor Wing [address], [address] [place] [address] Nathaly Nowak MD [address] [place] [address] documented as of this encounter Goals Goal [...] documented as of this encounter Care Teams Paint Formulator Relationship Specialty Start Date End Date Asad Victor MD [address] [place] [address] PCP - General 10/07/22 documented as of this encounter
--- OUTSIDE RECORDS SUMMARY | 2024-11-29 08:26 | XMS_ITS | Encounter Summary ---
Author Organization [facility] Address [address] [place] [address] Care Team Providers Care Workers Compensation Claims Examiner Name Role Phone Asad Victor MD Primary Care Provider + [phone] Encounter Details Date Type Department Care Team [...] drink first t dino in the morning (EYE-MAINTENANCE TECHNICIAN 2ND SHIFT) to steady your nerves or to get [...] 1 Month) No 025 2:00 PM EDT [place], Brigitte E, RN 2. Non-Specific Active Suici marcelle Thoughts (Past 1 Month) No 11/06/2024 2:00 PM EDT Brigitte Castellon RN 6. Suicidal Behavior (Lifetime) No 2:00 PM EDT Brigitte Castellon RN documented as of this encounter Plan of Treatment Upcoming Encounters Date Type Department Care Team (Late st Contact Info) Description 11/29/2024 2:30 PM EDT Office Visit [facility] [address] [facility] [place] [address] Oscar Appiah MD [address] [facility] [address] [place] [address] 12/19/2024 7:30 AM EDT Appointment [facility] Lab [address] [facility] 5th Floor Wing [address], [address] [place] [address] 12/19/2024 8:00 AM EDT Appointment [facility] [address] [facility] 5th Floor Wing [address], [address] [place] [address] 12/19/2024 9:00 AM EDT Office Visit [facility] [address] [facility] 5th Floor Wing [address], [address] [place] [address] Nathaly Nowak MD [address] [place] [address] documented as of this encounter Goals Goal Patient Goal Type Associated Problems Recent Progress Patient-Stated? Author Autogenera louise Goal Care Plan Autogenerated Problem No kEta Arnett documented as of this encounter Visit Diagnoses Not on filedocumented in this encounter Additional Health Concerns Active Problems Noted Date Diagnosed Date Autogenerated Problem 09/23/2024 Assessment Noted Time A Body Mass Index follow-up plan has been documented for the patient 11/14/2024 3:04 PM EDT documented as of this encounter Care Teams Workers Compensation Claims Examiner Relationship Specialty Start Date End Date Asad Victor MD [address] [place] [address] BISI [place] [address] PCP - General 10/07/22 documented as of this encounter
[2024-11-29] MEDS: SODIUM CHLORIDE 0.9% 10ML FLUSH SYRINGE 10 ML IV (08:48)
[2024-11-29 09:25] VITALS: BP 142/48; PULSE 65; RESP 20; O2SAT 98
[2024-11-29] MEDS: ERTAPENEM SODIUM 1 GM in 0.9 % SODIUM CHLORIDE 50 ML IV (09:25)
[2024-11-29 10:00] VITALS: BP 149/52; PULSE 69; RESP 20; O2SAT 98
== END 2024-11-29 10:10 | disposition home or self-care (01) ==
LOC: INF 08:09
PROVIDERS: PCP Family Medicine
DX: T14.8XXA Other injury of unspecified body region, initial encounter (principal); L08.9 Local infection of the skin and subcutaneous tissue, unspecified; X58.XXXA Exposure to other specified factors, initial encounter; Y93.9 Activity, unspecified; Y92.9 Unspecified place or not applicable
CPT/HCPCS: 96365; 96367; J1335; J2248

== ENCOUNTER 2024-11-30 07:17 | Outpatient (RCR) | payer MEDICARE, OTHER, SELFPAY ==
[2024-11-30 07:40] VITALS: BMI 29.9
[2024-11-30] MEDS: ERTAPENEM SODIUM 1 GM in 0.9 % SODIUM CHLORIDE 50 ML IV (07:45)
[2024-11-30] MEDS: SODIUM CHLORIDE 0.9% 10ML FLUSH SYRINGE 10 ML IV (08:06)
[2024-11-30] MEDS: MICAFUNGIN SODIUM IV (08:25)
[2024-11-30] MEDS: SODIUM CHLORIDE 0.9% IV (08:25)
== END 2024-11-30 09:30 | disposition home or self-care (01) ==
LOC: INF 07:17
PROVIDERS: PCP Family Medicine
DX: T81.49XA Infection following a procedure, other surgical site, initial encounter (principal); T14.8XXA Other injury of unspecified body region, initial encounter; L08.9 Local infection of the skin and subcutaneous tissue, unspecified; X58.XXXA Exposure to other specified factors, initial encounter
CPT/HCPCS: 96365; 96366; 96367; J1335; J2248

== ENCOUNTER 2024-12-01 08:06 | Outpatient (CLI) | payer MEDICARE, OTHER, SELFPAY ==
[2024-12-01] MEDS: ERTAPENEM SODIUM 1 GM in 0.9 % SODIUM CHLORIDE 50 ML IV (08:30)
[2024-12-01] MEDS: SODIUM CHLORIDE 0.9% 10ML FLUSH SYRINGE 10 ML IV (08:36)
[2024-12-01] MEDS: MICAFUNGIN SODIUM IV (09:00)
[2024-12-01] MEDS: SODIUM CHLORIDE 0.9% IV (09:00)
== END 2024-12-01 10:04 | disposition home or self-care (01) ==
LOC: INF 08:11
PROVIDERS: PCP Family Medicine; Visit Provider Student in an Organized Health Care Education/Training Program
DX: T14.8XXA Other injury of unspecified body region, initial encounter (principal); L08.9 Local infection of the skin and subcutaneous tissue, unspecified; X58.XXXA Exposure to other specified factors, initial encounter; Y93.9 Activity, unspecified; Y92.9 Unspecified place or not applicable
CPT/HCPCS: 96365; 96366; J1335; J2248

== ENCOUNTER 2024-12-02 07:59 | Outpatient (CLI) | payer MEDICARE, OTHER, SELFPAY ==
--- OUTSIDE RECORDS SUMMARY | 2024-10-11 10:15 | XMS_ITS | Encounter Summary ---
Author Organization [facility] Address [address] [place] [address] Care Team Providers Care Learning Support Teacher Name Role Phone Asad Victor MD Primary Care Provider + [phone] Encounter Details Date Type Department Care Team (Latest Contact Info) Description 10/11/2024 10:15 AM EDT Pre-Admission Testing [facility]-op [facility] [address], [address] [place] [phone] Preop testing (Primary Dx) Anesthesia Record Procedure [...] Hand; Site Prep: Chlorhexidine ; Local Anesth: [place]; Technique: Anatomical landmarks; Inserted by: CHRISTIAN Acuna; [...] G; Orientation: Right; Location: Axillary; Inserted by: DELICATESSEN SLICER; Securement: Sutured; Patient Tolerance: Tolerated well; Removal [...] drink first t dino in the morning (EYE-STRAIGHTENING MACHINE OPERATOR) to steady your nerves or to [...] HTN, RLS who presented to 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 S/P intravascular lithotripsy of left common and external iliac artery with 2 continuous balloon mounted bare metal stents 09/12/24 on Xarelto and ASA + WILHELM occ, low energy for > year - had work-up recently in [place] (will get records) + peripheral edema LLE [...] ENDARTERECTOMY N/A 2017 Endarterectomy Carotid Artery from [facility] CORONARY ANGIOPLASTY Left Coronary Angiography With Concomitant Left Heart Catheterization from [facility] CORONARY ARTERY BYPASS GRAFT N/A 2018 3V ELBOW SURGERY Right OTHER SURGICAL HISTORY N/A Reported Prior Surgical / Procedural History from [facility] [5] No Known Allergies [6] Current Outpatient [...] card, photo ID, along with power of commercial litigation attorney, guardianship or advanced directives if applicable [...] Care Team (Late st Contact Info) Description 12/19/2024 7:30 AM EDT Appointment [facility] [address] [place] [address] 12/19/2024 8:00 AM EDT Appointment [facility] [address] [place] [address] 12/19/2024 9:00 AM EDT Office Visit [facility] [address] [place] [address] Nathaly Nowak MD [address] [facility] [address] [place] [address] documented as of this encounter Goals Goal [...] Modality Other Narrative 10/17/2024 9:50 AM EDT [facility]: Pre-operative CIED Report Assessment and Sara-Procedural Reommendations: Name: Mono Bobby Date: 10/17/2024 : 1960 Age: 64 y.o. Patient has a Bartacker: Berger ENT SURGEON-PM Remaining battery longevity adequate. Lead integrity test [...] recommendations. Supporting reports can be found in [employer] file. Emelina DOSHI CV IMPLANTABLE CARDIAC DEV ICE [...] documented as of this encounter Care Teams Learning Support Teacher Relationship Specialty Start Date End Date Asad Victor MD [address] [place] [address] PCP - General 10/07/22 documented as of this encounter
--- OUTSIDE RECORDS SUMMARY | 2024-10-16 14:45 | XMS_ITS | Encounter Summary ---
Author Organization Healthcare Address [address] [place] [address] Care Team Providers Care Travel Nurse Name Role Phone Asad Victor MD Primary Care Provider + [phone] Encounter Details Date Type Department Care Team (Latest Contact Info) Description 10/16/2024 2:45 PM EDT - 10/16/2024 11:59 PM EDT Hospital Encounter Cardiac Imaging [address] [place] [address] Discharge Disposition: Home or Self Care Social [...] drink first t dino in the morning (EYE-BELLY ROLLER) to steady your nerves or to [...] Info) Description 12/19/2024 7:30 AM EDT Appointment [facility] Lab [address] [place] [address] 12/19/2024 8:00 AM EDT Appointment [facility] Lab [address] [place] [address] [address] [place] [address] 12/19/2024 9:00 AM EDT Office Visit [facility] [address] [place] [address] Nathaly Nowak MD [address] [facility] [address] [place] [address] documented as of this encounter Goals Goal [...] Modality Other Narrative 10/17/2024 9:50 AM EDT [facility]: Pre-operative CIED Report Assessment and Sara-Procedural Reommendations: Name: Mono Bobby Date: 10/17/2024 : 1960 Age: 64 y.o. Patient has a Outboard Motors Experimental Mechanic: Berger PUMPER HAND-PM Remaining battery longevity adequate. Lead integrity [...] recommendations. Supporting reports can be found in [employer] file. 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
--- OUTSIDE RECORDS SUMMARY | 2024-10-17 06:21 | XMS_ITS | Encounter Summary ---
Author Organization [facility] Address [address] [id number] Care Team Providers Care Leather Belt Loop Cutter Name Role Phone Asad Victor MD Primary Care Provider [phone] Reason for Referral * Imaging (Routine) - Authorized Specialty Diagnoses / Procedures Referred By Susan t Referred To Contact Cardiology Diagnoses Critical limb ischemia of left lower extremity Pseudoaneurysm of left femoral artery (CMS/HCC) Procedures VAS US Arterial Duplex Lower Extremity Unilateral Left Terrell Gautam MD [address] [address] Phone: tel: fax: Referral ID Status Reason Start Date Expiration Date Visits Requested Visits Authorized [id number] Authorized Perform Procedure 10/19/2024 04/20/2026 1 1 * Imaging (Routine) - Authorized Specialty Diagnoses / Procedures Referred By Contac t Referred To Contact Cardiology Diagnoses Critical limb ischemia of left lower extremity Pseudoaneurysm of left femoral artery (CMS/HCC) Procedures VAS Ankle Brachial Index - Segmental Terrell Gautam MD [id number] [place] [address] Phone: tel: fax: Referral ID Status Reason Start Date Expiration Date Visits Requested Visits Authorized [id number] Authorized Perform Procedure 10/19/2024 04/20/2026 1 1 * Consultation (Routine) - Authorized Specialty Diagnoses / Procedures Referred By Contact Referred To Contact Vascular Surgery / [facility] Diagnoses Critical limb ischemia of left lower extremity Pseudoaneurysm of left femoral artery (CMS/HCC) Terrell Gautam MD [address] [place] [address] Phone: tel:[phone] fax:[phone] [facility] [address] [place] [address] 5th Floor [address] [place] [address] Phone: tel: fax: Referral ID Status Reason Start Date Expiration Date Visits Requested Visits Authorized [id number] Authorized Specialty Services Required 10/19/2024 04/20/2026 [address] Gautam, with SIL, arterial duplex Reason for Visit * Auth/Cert (Routine) Specialty Diagnoses / Procedures Referred By Susan t Referred To Contact Diagnoses Critical limb ischemia of left lower extremity Critical limb ischemia of left lower extremity [I70.222] Procedures AZ VEIN BYPASS GRAFT,FEM-POP CREATION, BYPASS, ARTERIAL, FEMORAL TO POPLITEAL Terrell Gautam MD [address] [place] [address] Phone: tel: fax: [facility] A OPERATING ROOM [address] [place] [address] Phone: tel: Referral ID Status Reason Start Date Expiration Date Visits Re quested Visits Authorized [id number] 1 1 Encounter Details Date Type Department Care Team (Latest Contact Info) Description 10/17/2024 6:21 AM EDT - 10/19/2024 12:39 PM EDT Hospital Encounter [facility] H Inpatient [address] [place] [id number] Terrell Gautam MD [address] [place] [address] Pseudoaneurysm of left femoral artery (CMS/HCC) [...] time in the past 12 m [facility], were you homeless or living in a assisted (including now)? No 10/18/2024 CAGE ASSESSMENT Answer [...] drink first t dino in the morning (EYE-GEOTHERMAL SHEET METAL WORKER) to steady your nerves or to get rid of a hangover? 0 10/18/2021 CAGE Questionnaire Score 0 022 Utilities Answer Date Recorded In the past 12 months has th [employer], gas, oil, or water [employer] threatened to shut off services in your [...] provided Taken 10/17/20242107 by Jourdan Grimes II putter in Review/Management: medications reviewed Problem: Skin Injury Risk [...] Ongoing, Progressing Intervention: Promote Activity and Functional [place] Flowsheets (Taken 10/19/2024 1048) Self-Care Promotion: BADL personal objects within reach meal set-up provided * Yuni Ramires - Keyla Chow - 10/19/2024 11:45 AM EDT Images from the original note were not included. [id number] After Peripheral Artery Bypass Surgery: In the [...] home. Last Reviewed Date: 2023 00:00:00 ?? [id number] [employer]. All rights reserved. This information is not intended as a substitute for professional medical care. Always follow your healthcare professional's instructions. * Progress Notes - Emelina Friend - 10/19/2024 11:44 AM EDT Case Management Adult Progress Note Bev Bobby 64 y.o. male CSN: [id number] Admission: 10/17/2024 6:21 AM Primary Problem: Critical [...] if any other needs arise. Emelina Friend HEALTH AND WELLNESS COORDINATOR, HAND TRUCKER Social Work Case Management * Yuni OviJOSE MANUEL Chow Keyla - 10/19/2024 11:44 AM EDT Images from the original note were not included. [id number] Peripheral Artery Disease (PAD) Peripheral artery disease [...] cause. Last Reviewed Date: 2024 00:00:00 ?? [id number] [employer]. All rights reserved. This information is not intended as a substitute for professional medical care. Always follow your healthcare professional's instructions. * Yuni DiorNAVYA - Keyla Chow - 10/19/2024 11:44 AM EDT Images from the original note were not included. [id number] Leg Artery Emergencies: Critical Limb Ischemia (CLI) [...] appointments. Last Reviewed Date: 2023 00:00:00 ?? 9915-8815 [employer]. All rights reserved. This information is not intended as a substitute for professional medical care. Always follow your healthcare professional's instructions. * Discharge Summary - Dandy Baltazar MD - 10/19/2024 11:31 AM EDT Hospitalization Admit Date/Time: 10/17/2024 6:21 AM Admitting Attending: Terrell Gautam Discharge Date: 10/19/24 Discharge Attending Physician: Nirmal Cueto MD PCP name and Address: Asad Victor MD (Inactive) [address] [place] [address] / [facility] [address] Referring provider name and address: Timothy Marques PA [address] [place] [address] Chief Concern, Brief History of Present Illness, and Hospital Course Bev Bobby is an 64 y.o. 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 He [...] to [facility] - [place], [place] - [address], [facility] [address] acetaminophen 500 MG tablet clopidogrel 75 MG [...] of water. 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 He [...] provided Taken 10/17/20242107 by Jourdan Grimes II, putter in Review/Management: medications reviewed Problem: Skin Injury Risk [...] Ongoing, Progressing Intervention: Promote Activity and Functional [place] Flowsheets (Taken 10/19/2024 1048) Self-Care Promotion: BADL [...] evaluation. PARTICIPANTS IN CARE Visitors Present No Pump Service Supervisor (if applicable) PRESENTATION Oxygen Oxygen Therapy: [...] Level of Mobility Ambulatory- household only Mobility [place] Independent gait with device (rollator) History of [...] numbness in rodney) BED MOBILITY Level of [place] Physical/Non- physical Assist Adaptive Equipment Utilized Rolling/ Turning Scooting/ Bridging Modified independence (anteriorly to EOB) Bed rails Supine to Sit Modified [place] (to the right) (HOB flat) Bed rails Sit to Supine Interventions HOB flat to simulate home environment TRANSFERS Level of [place] Physical/Non- physical Assist Adaptive Equipment Utilized Sit [...] stable surfaces during transitions. AMBULATION Level of [place] Distance Adaptive Equipment Utilized Ambulation Standby assist, [...] Posture: Forward head, Rounded shoulders Level of [place] Balance Support Interventions Static Sit Independent Right [...] 3-5 steps with a railing?: A little [facility] 6-Clicks Mobility Assessment Total : 22 [...] evaluation/session. Participants in Care Family/Caregiver Present: No Pump Service Supervisor: Not Applicable Presentation Oxygen Therapy: None [...] Level of Mobility: Ambulatory- household only Mobility [place]: Independent gait with device (rollator) History of [...] Extremity: Mild impairment (Patient reported numbness in rdoney) Perception/Coordination Perception Initiation: Appears intact Motor Planning: Appears intact Coordination Movements are Fluid and Coordinated: Yes Fine Motor Coordination Examination Left Hand, Manipulation of Objects: Normal performance Right Hand, Manipulation of Objects: Normal performance Bed Mobility Bed Mobility Exam: Scooting/Bridging Level of [place]: Modified independence (anteriorly to EOB) Assistive Device: Bed rails Bed Mobility Exam: Supine to Sit Level of [place]: Modified [place] (to the right) Physical/Nonphysical Assist: (HOB flat) Assistive Device: Bed rails Transfers Transfer Exam: Sit to stand Level of [place]: Stand-by assist Physical/Nonphysical Assist: Supervision, Verbal Cues, Minimal cues Assistive Device: Walker, rolling Transfer Exam: Stand to Sit Level of [place]: Stand-by assist Physical/Nonphysical Assist: Supervision, Verbal Cues, [...] regarding toileting at this time. Standardized Assessments [facility] 6-Click Daily Activities Help from Other: Don/Doff Regular Lower Body Clothings: None Help From Other: Bathing: Little Help From Other: Toileting: None Help From Other: Don/Doff Upper Body Clothings: None Help From Other: Grooming: None Help From Other: Eating Meals: None [facility] 6 Click - Daily Activities Score: 23/24 [facility] Scoring Interpretation: Scores greater than 20.5 [...] Note Bev Bobby 64 y.o. male CSN: [id number] Admission: 10/17/2024 6:21 AM Primary Problem: Critical limb ischemia of left lower extremity Exposure Machine Operator reviewed chart and spoke with patient to complete this Initial Case Management Assessment. PCP: Asad Victor MD (Inactive) - Dr. Palomo Preferred pharmacy is [facility] Emergency Contact: Extended Emergency Contact Information Primary Emergency Contact: Patti Hill Relation: Sister Pump Service Supervisor needed? No Insurance: Primary Visit Coverage Payer Plan Sponsor Code Group Number Group Name [facility] MEDICARE [facility] MEDICARE REPLACEMENT [id number] Primary Visit Coverage Subscriber Subscriber ID Subscriber Name Subscriber N Subscriber Address [id number] BEV BOBBY [id number] [place] [address] Secondary Visit Coverage Payer Plan Sponsor Code Group Number Group Name [facility] MED[facility] Secondary Visit Coverage Subscriber Subscriber ID Subscriber Name Subscriber N Subscriber Address [id number] BEV BOBBY [id number] [place] [address] Patient information: Primary Caregiver: Self Daily Living Activities: Functional Status: Independent Living Arrangements: Alone Type of Residence: Private residence, Single Level [address] [place] [address] Current DME: Equipment Currently Used at Home: walker, rollator Income Information: Income Source: Retired Income/Expense Information: Income meets expenses Current Resources Utilized: Food [place] Housing Circumstances-Z Codes: Housing Circumstances (select all [...] Dialysis Services: None. Living Will/Advance Directive/Power of Desulfurizer Machine /Guardian: Denied. Additional Comments: Patient is not medically ready for discharge. SW will continue to follow. Mariia Macedo HAND TRUCKER * Care Plan - Emilia Alonso RN [...] the original note were not included. [facility] Department of Surgery Division of [...] the patient. * Care Plan - Jourdan rGimes II, RN - 10/17/2024 9:10 PM EDT [...] Agree with above assessment and evaluation from resident/FUDGE CANDY MAKER. * Op Note - Terrell Gautam MD - 10/17/2024 8:52 AM EDT Operative Note Date: 10/17/24 Location: [facility] Name: Bev Bobby, : 1960, Diagnoses: Pre-op Diagnosis Critical limb ischemia of left lower extremity Common femoral artery pseudoaneurysm Post-op Diagnosis Critical limb ischemia of left lower extremity Common femoral artery pseudoaneurysm Procedure(s): Left common/superficial/profunda femoral thromboendarterectomy with bovine patch repair Left external iliac artery/IMPORTER OR EXPORTER stent Attending Surgeon(s): * Terrell Gautam - Primary Dietary Tech(s): * Luna Beckett MD - Resident - [...] Necessity Reasons Recent surgery contiguous with urinary tract/DRY END OPERATOR/colorectal 10/17/24 190 Output (mL) 50 mL 10/18/24 08 Implants Type Name Action Serial No. VASCUGUARD 8 X 8 - [id number] Implanted STENT ENDOPROSTHESIS VIABAHN 9FR [id number] - [id number] Implanted [id number] Specimen: Specimens ID Source Frozen? 1 Other [...] and distal control. We then proceeded with jruxg-ili-yhun exposure of the popliteal artery. A medial [...] balloon dilated thestent with a 9 mm [place]. We closed the arteriotomy with a single [...] 10/17/2024 8:52 AM EDT Date: 10/17/24 Location: [facility] Name: Bev Perez Kanu, : 1960, Diagnoses: Pre-op Diagnosis Critical limb ischemia of left lower extremity Common femoral artery pseudoaneurysm Post-op Diagnosis Critical limb ischemia of left lower extremity Common femoral artery pseudoaneurysm Procedure(s): Left common/superficial/profunda femoral thromboendarterectomy with bovine patch repair Left external iliac artery/IMPORTER OR EXPORTER stent Attending Surgeon(s): * Terrell Gautam - Primary Dietary Tech(s): * Luna Beckett MD - Resident - Assisting * Dandy Baltazar MD - Fellow Anesthesia: General ASA: III Blood Administration: Blood Product Administration History None Estimated Blood Loss: 300 mL Drains: Urethral Catheter Temperature probe 16 Fr. (Active) Implants Type Name Action Serial No. VASCUGUARD 8 X 8 - [id number] Implanted STENT ENDOPROSTHESIS VIABAHN 9FR [id number] - [id number] Implanted [id number] Specimen: Specimens ID Source Frozen? 1 Other [...] issues. 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 He previouslyunderwent thrombin injection. He reports pain in his calves. He presents today for scheduled left lower extremity femoral to hynsx-gwv-vnkb popliteal bypass. Planned likely use PTFE. He [...] 16. Results Review {Vanishing Link Review Results :[id number] I have reviewed the latest lab and imaging results. Assessment & Plan Critical limb ischemia of left lower extremity Proceed with scheduled surgery left lower extremity femoral to hjnyy-lsu-quuy popliteal artery bypass graft. Extensive discussion had [...] Info) Description 12/19/2024 7:30 AM EDT Appointment [facility] [address] [place] [address] 12/19/2024 8:00 AM EDT Appointment [facility] [address] [place] [address] [address], [address] [place] [address] 12/19/2024 9:00 AM EDT Office Visit [facility] [address], [address] [place] [address] Nathaly Nowak MD [address] [place], [place] [id number] [place] [address] Pending Results Name Type Priority Associated Diagnoses [...] PREPARE RBC STAT 10/17/2024 8:06 AM EDT AZ VEIN BYPASS GRAFT,FEM-POP 10/17/2024 7:38 AM EDT [...] Comment 10/19/2024 11:42 AM EDT [facility] Vegetable I Farmworker ID Job Andrew 10/20/19 11:42 AM EDT HEALTHCARE LAB Device ID [id number] 10/19/2024 11:42 AM EDT [facility] Specimen Type POC Capillary 10/19/2024 11:42 AM EDT [facility] Blood Capillary blood specimen / Unknown 10/19/2024 11:40 AM EDT 10/19/2024 11:42 AM EDT Terrell Gautam MD LAB POINT OF CARE TE ST DOCKED DEVICE UNSOLICITED RESULTS Final Result [facility] [address] [place] [address] * (ABNORMAL) Protime-INR (10/19/2024 8:25 AM EDT) Prothrombin Time 17.5(H) 12.0 - 14.3 sec LAB COAGULATION METHOD 10/19/2024 9:25 AM EDT [facility] INR 1.4(H) 0.9 - 1.1 LAB COAGULATION METHOD 10/19/2024 9:25 AM EDT [facility] Blood Venous blood specimen / Unknown Venipuncture / Unknown 10/19/2024 8:25 AM EDT 10/19/2024 8:43 AM EDT Narrative [facility] - 10/19/2024 9:25 AM EDT OPTIMAL INR RANGES FOR PATIENT ON ORAL ANTICOAGULANT THERAPY Prevention of venous thromboembolism INR 2.0 to 3.0 In patients with heart disease: Atrial fibrillation INR 2.0 to 3.0 Valvular heart disease INR 2.0 to 3.0 Tissue heart valves INR 2.0 to 3.0 Mechanical prosthetic valves INR 2.5 to 3.5 Prevention of recurrent IA INR 2.5 to 3.5 us Nirmal Cueto MD LAB BLOOD ORDERABLES Final Result Performing Organization Address [facility] Co de Phone Number [facility] [address] [place] [address] * (ABNORMAL) Phosphorus (10/19/2024 8:25 AM EDT) Phosphorus, Plasma 2.2(L) 2.5 - 4.5 mg/dL 10/19/2024 9:12 AM EDT [facility] Blood Venous blood specimen / Unknown Venipuncture / Unknown 10/19/2024 8:25 AM EDT 10/19/2024 8:43 AM EDT us Nirmal Cueto MD LAB BLOOD ORDERABLES Final Result Performing Organization Address [facility] Co de Phone Number [facility] [address] [place] [address] * Magnesium (10/19/2024 8:25 AM EDT) Magnesium, Plasma 2.1 1.9 - 2.4 mg/dL 10/19/2024 9:12 AM EDT [facility] Blood Venous blood specimen / Unknown Venipuncture / Unknown 10/19/2024 8:25 AM EDT 10/19/2024 8:43 AM EDT us Nirmal Cueto MD LAB BLOOD ORDERABLES Final Result Performing Organization Address [facility] Co de Phone Number [facility] [address] [place] [address] * (ABNORMAL) Basic metabolic panel (10/19/2024 8:25 AM EDT) Glucose, Plasma 191(H) 74 - 99 mg/dL 10/19/2024 9:12 AM EDT [facility] BUN, Plasma 18 8 - 23 mg/dL 10/19/2024 9:12 AM EDT [facility] Creatinine, Plasma 0.76 0.70 - 1.20 mg/dL 10/19/2024 9:12 AM EDT [facility] BUN/Creatinine Ratio 24 10/19/2024 9:12 AM EDT [facility] Sodium, Plasma 135(L) 136 - 145 mmol/L 10/19/2024 9:12 AM EDT [facility] Potassium, Plasma 4.1 3.6 - 4.9 mmol/L 10/19/2024 9:12 AM EDT [facility] Chloride, Plasma 104 97 - 107 mmol/L 10/19/2024 9:12 AM EDT [facility] CO2, Plasma 22 22 - 29 mmol/L 10/19/2024 9:12 AM EDT [facility] Anion Gap 9 6 - 16 mmol/L 10/19/2024 9:12 AM EDT [facility] Total Calcium, Plasma 8.4(L) 8.9 - 10.2 mg/dL 10/19/2024 9:12 AM EDT [facility] eGFRcr 99.7 mL/min/1.7 3m*2 10/19/2024 9:12 AM EDT [facility] Comment:Reported eGFRcr in m L/min/1.73m2 is based the CKD-EPI 2020 equation that does not use a race coefficient. Blood Venous blood specimen / Unknown Venipuncture / Unknown 10/19/2024 8:25 AM EDT 10/19/2024 8:43 AM EDT Nirmal Cueto MD LAB BLOOD ORDERABLES Final Result [facility] [address] [place] [address] * (ABNORMAL) CBC W/O Differential (10/19/2024 8:25 AM EDT) WBC Count 14.10(H) 3.70 - 10.30 10*3/uL LAB HEMATOLOGY METHOD 10/19/2024 8:52 AM EDT [facility] RBC Count 2.61(L) 4.60 - 6.10 10*6/uL LAB HEMATOLOGY METHOD 10/19/2024 8:52 AM EDT [facility] HGB 8.0(L) 13.7 - 17.5 g/dL LAB HEMATOLOGY METHOD 10/19/2024 8:52 AM EDT [facility] HCT 24.3(L) 40.0 - 51.0 % LAB HEMATOLOGY METHOD 10/19/2024 8:52 AM EDT [facility] Platelet Count 318 155 - 369 10*3/uL LAB HEMATOLOGY METHOD 10/19/2024 8:52 AM EDT [facility] MCV 93 79 - 98 fL LAB HEMATOLOGY METHOD 10/19/2024 8:52 AM EDT [facility] MCH 30.7 26.0 - 32.0 pg LAB HEMATOLOGY METHOD 10/19/2024 8:52 AM EDT [facility] MCHC 32.9 30.7 - 35.5 g/dL LAB HEMATOLOGY METHOD 10/19/2024 8:52 AM EDT [facility] RDW 13.4 11.5 - 14.5 % LAB HEMATOLOGY METHOD 10/19/2024 8:52 AM EDT [facility] MPV 9.6 8.8 - 12.5 fL LAB HEMATOLOGY METHOD 10/19/2024 8:52 AM EDT [facility] nRBC 0.0 <=0.0 per 100 WBCs LAB HEMATOLOGY METHOD 10/19/2024 8:52 AM EDT [facility] Blood Venous blood specimen / Unknown Venipuncture / Unknown 10/19/2024 8:25 AM EDT 10/19/2024 8:44 AM EDT Nirmal Cueto MD LAB BLOOD ORDERABLES Final Result [facility] [address] [place] [address] * (ABNORMAL) POCT glucose meter (10/19/2024 7:35 AM EDT) [facility] POCT Glucose 187(H) 74 - 99 mg/dL 10/19/2024 7:37 AM EDT [facility] Comment:Accuracy of a glucos e [...] 10/19/2024 7:37 AM EDT [facility] Vegetable I Farmworker ID Job Andrew 10/20/19 7:37 AM EDT [facility]ARE [facility] Device ID [id number] 10/19/2024 7:37 AM EDT [facility] Specimen Type POC Capillary 10/19/2024 7:37 AM EDT [facility] Blood Capillary blood specimen / Unknown 10/19/2024 7:35 AM EDT 10/19/2024 7:37 AM EDT us Terrell Gautam MD LAB POINT OF CARE TE ST DOCKED DEVICE UNSOLICITED RESULTS Final Result Performing Organization Address City/[facility]/ZIP Co de Phone Number [facility] [address] [place] [address] * (ABNORMAL) POCT glucose meter (10/18/2024 7:22 PM EDT) [facility] POCT Glucose 178(H) 74 - 99 mg/dL [...] Comment 10/18/2024 7:24 PM EDT [facility] Vegetable I Farmworker ID Mahesh Aldana 10/18/2024 7:24 PM EDT [facility] Device ID [id number] 10/18/2024 7:24 PM EDT [facility] Specimen Type POC Capillary 10/18/2024 7:24 PM EDT [facility] Blood Capillary blood specimen / Unknown 10/18/2024 7:22 PM EDT 10/18/2024 7:24 PM EDT us Terrell Gautam MD LAB POINT OF CARE TE ST DOCKED DEVICE UNSOLICITED RESULTS Final Result [facility] [address] [place] [address] * (ABNORMAL) POCT glucose meter (10/18/2024 6:07 PM EDT) [facility] POCT Glucose 167(H) 74 - 99 mg/dL [...] Comment 10/18/2024 6:09 PM EDT [facility] Vegetable I Farmworker ID David Parks 10/18/2024 6:09 PM EDT [facility] Device ID [id number] 10/18/2024 6:09 PM EDT [facility] Specimen Type POC Capillary 10/18/2024 6:09 PM EDT [facility] Blood Capillary blood specimen / Unknown 10/18/2024 6:07 PM EDT 10/18/2024 6:09 PM EDT Terrell Gautam MD LAB POINT OF CARE TE ST DOCKED DEVICE UNSOLICITED RESULTS Final Result Performing Organization Address [facility] Co de Phone Number [facility] [address] [place] [address] * (ABNORMAL) POCT glucose meter (10/18/2024 11:56 AM EDT) [facility] POCT Glucose 233(H) 74 - 99 mg/dL [...] 10/21/2024 7:42 AM EDT [facility] Vegetable I Farmworker ID Venessa Marcano 10/21/2024 7:42 AM EDT [facility] Device ID [id number] 10/21/2024 7:42 AM EDT [facility] Specimen Type POC Capillary 10/21/2024 7:42 AM EDT [facility] Blood Capillary blood specimen / Unknown 10/18/2024 11:56 AM EDT 10/21/2024 7:42 AM EDT us Terrell Gautam MD LAB POINT OF CARE TE ST DOCKED DEVICE UNSOLICITED RESULTS Final Result Performing Organization Address City/[facility] Co de Phone Number [facility] [address] [place] [address] * (ABNORMAL) POCT glucose meter (10/18/2024 9:24 [...] 10/21/2024 7:42 AM EDT [facility] Vegetable I Farmworker ID Emilia Alonso 7:42 AM EDT [facility]ARE [facility] Device ID [id number] 10/21/2024 7:42 AM EDT [facility] Specimen Type POC Venous 10/21/2024 7:42 AM EDT [facility] Blood Venous blood specimen / Unknown 10/18/2024 9:24 AM EDT 10/21/2024 7:42 AM EDT us Terrell Gautam MD LAB POINT OF CARE TE ST DOCKED DEVICE UNSOLICITED RESULTS Final Result Performing Organization Address City/[facility] Co de Phone Number [facility] [address] [place] [address] * (ABNORMAL) POCT glucose meter (10/18/2024 7:36 [...] Comment 10/18/2024 7:38 AM [facility] Vegetable I Farmworker ID Kizzy Godfrey 025 7:38 AM [facility] Device ID [id number] 10/18/2024 7:38 AM [facility] Specimen Type POC Capillary 10/18/2024 7:38 AM [facility] Blood Capillary blood specimen / Unknown 10/18/2024 7:36 AM EDT 10/18/2024 7:38 AM EDT us Terrell Gautam MD LAB POINT OF CARE TE ST DOCKED DEVICE UNSOLICITED RESULTS Final Result Performing Organization Address City/State/[facility] Co de Phone Number HEALTHCARE LAB [address] [place] [address] * (ABNORMAL) CBC (10/18/2024 2:09 AM EDT) WBC Count 16.71(H) 3.70 - 10.30 10*3/uL LAB HEMATOLOGY METHOD 10/18/2024 2:33 AM EDT [facility] RBC Count 2.78(L) 4.60 - 6.10 10*6/uL LAB HEMATOLOGY METHOD 10/18/2024 2:33 AM EDT [facility] HGB 8.5(L) 13.7 - 17.5 g/dL LAB HEMATOLOGY METHOD 10/18/2024 2:33 AM EDT [facility] HCT 25.7(L) 40.0 - 51.0 % LAB HEMATOLOGY METHOD 10/18/2024 2:33 AM EDT [facility] Platelet Count 324 155 - 369 10*3/uL LAB HEMATOLOGY METHOD 10/18/2024 2:33 AM EDT [facility] MCV 92 79 - 98 fL LAB HEMATOLOGY METHOD 10/18/2024 2:33 AM EDT [facility] MCH 30.6 26.0 - 32.0 pg LAB HEMATOLOGY METHOD 10/18/2024 2:33 AM EDT [facility] MCHC 33.1 30.7 - 35.5 g/dL LAB HEMATOLOGY METHOD 10/18/2024 2:33 AM EDT [facility] RDW 13.3 11.5 - 14.5 % LAB HEMATOLOGY METHOD 10/18/2024 2:33 AM EDT [facility] MPV 9.4 8.8 - 12.5 fL LAB HEMATOLOGY METHOD 10/18/2024 2:33 AM EDT [facility] nRBC 0.0 <=0.0 per 100 WBCs LAB HEMATOLOGY METHOD 10/18/2024 2:33 AM EDT [facility] Blood Venous blood specimen / Unknown Venipuncture / Unknown 10/18/2024 2:09 AM EDT 10/18/2024 2:25 AM EDT Nirmal Cueto MD LAB BLOOD ORDERABLES Final Result [facility] [address] [place] [address] * (ABNORMAL) Basic metabolic panel (10/18/2024 2:09 AM EDT) Glucose, Plasma 206(H) 74 - 99 mg/dL 10/18/2024 2:53 AM EDT [facility] BUN, Plasma 24(H) 8 - 23 mg/dL 10/18/2024 2:53 AM EDT [facility] Creatinine, Plasma 1.17 0.70 - 1.20 mg/dL 10/18/2024 2:53 AM EDT [facility] BUN/Creatinine Ratio 21 10/18/2024 2:53 AM EDT [facility] Sodium, Plasma 136 136 - 145 mmol/L 10/18/2024 2:53 AM EDT [facility] Potassium, Plasma 4.8 3.6 - 4.9 mmol/L 10/18/2024 2:53 AM EDT [facility] Chloride, Plasma 104 97 - 107 mmol/L 10/18/2024 2:53 AM EDT [facility] CO2, Plasma 22 22 - 29 mmol/L 10/18/2024 2:53 AM EDT [facility] Anion Gap 10 6 - 16 mmol/L 10/18/2024 2:53 AM EDT [facility] Total Calcium, Plasma 8.5(L) 8.9 - 10.2 mg/dL 10/18/2024 2:53 AM EDT [facility] eGFRcr 69.2 mL/min/1.7 3m*2 10/18/2024 2:53 AM EDT [facility] Comment:Reported eGFRcr in m L/min/1.73m2 is based the CKD-EPI 2020 equation that does not use a race coefficient. Blood Venous blood specimen / Unknown Venipuncture / Unknown 10/18/2024 2:09 AM EDT 10/18/2024 2:25 AM EDT Nirmal Cueto MD LAB BLOOD ORDERABLES Final Result Performing Organization Address City/[facility]/ZIP Co de Phone Number [facility] [address] [place] [address] * (ABNORMAL) Magnesium (10/18/2024 2:09 AM EDT) Magnesium, Plasma 1.8(L) 1.9 - 2.4 mg/dL 10/18/2024 2:53 AM EDT [facility] Blood Venous blood specimen / Unknown Venipuncture / Unknown 10/18/2024 2:09 AM EDT 10/18/2024 2:25 AM EDT Nirmal Cueto MD LAB BLOOD ORDERABLES Final Result [facility] [address] [place] [address] * Phosphorus (10/18/2024 2:09 AM EDT) Phosphorus, Plasma 3.7 2.5 - 4.5 mg/dL 10/18/2024 2:53 AM EDT [facility] Blood Venous blood specimen / Unknown Venipuncture / Unknown 10/18/2024 2:09 AM EDT 10/18/2024 2:25 AM EDT us Nirmal Cueto MD LAB BLOOD ORDERABLES Final Result Performing Organization Address [facility] Co de Phone Number [facility] [address] [place] [address] * (ABNORMAL) Protime-INR (10/18/2024 2:09 AM EDT) Prothrombin Time 14.5(H) 12.0 - 14.3 sec LAB COAGULATION METHOD 10/18/2024 2:53 AM EDT [facility] INR 1.1 0.9 - 1.1 LAB COAGULATION METHOD 10/18/2024 2:53 AM EDT [facility] Blood Venous blood specimen / Unknown Venipuncture / Unknown 10/18/2024 2:09 AM EDT 10/18/2024 2:25 AM EDT Narrative [facility] - 10/18/2024 2:53 AM EDT OPTIMAL INR RANGES FOR PATIENT ON ORAL ANTICOAGULANT THERAPY Prevention of venous thromboembolism INR 2.0 to 3.0 In patients with heart disease: Atrial fibrillation INR 2.0 to 3.0 Valvular heart disease INR 2.0 to 3.0 Tissue heart valves INR 2.0 to 3.0 Mechanical prosthetic valves INR 2.5 to 3.5 Prevention of recurrent IA INR 2.5 to 3.5 Nirmal Cueto MD LAB BLOOD ORDERABLES Final Result Performing Organization Address [facility] Co de Phone Number [facility] [address] [place] [address] * (ABNORMAL) POCT glucose meter (10/18/2024 2:08 AM EDT) POCT Glucose 202(H) 74 - 99 mg/dL 10/18/2024 2:10 AM EDT [facility] Comment:Accuracy of a glucos e [...] Comment 10/18/2024 2:10 AM [facility] Vegetable I Farmworker ID Jourdan Grimes II 10/18/2024 2:10 AM [facility] Device ID [id number] 10/18/2024 2:10 AM [facility] Specimen Type POC Capillary 10/18/2024 2:10 AM [facility] Blood Capillary blood specimen / Unknown 10/18/2024 2:08 AM EDT 10/18/2024 2:10 AM EDT us Terrell Gautam MD LAB POINT OF CARE TE ST DOCKED DEVICE UNSOLICITED RESULTS Final Result Performing Organization Address [facility] Co de Phone Number [facility] [address] [place] [address] * (ABNORMAL) POCT glucose meter (10/17/2024 10:07 PM EDT) [facility] POCT Glucose 300(H) 74 - 99 mg/dL [...] Comment 10/17/2024 10:10 PM [facility]T [facility] Vegetable I Farmworker ID Jourdan Grimes II 10/17/2024 10:10 PM EDT [facility] Device ID [id number] 10/17/2024 10:10 PM EDT [facility] Specimen Type POC Capillary 10/17/2024 10:10 PM [facility] Blood Capillary blood specimen / Unknown 10/17/2024 10:07 PM EDT 10/17/2024 10:10 PM EDT us Terrell Gautam MD LAB POINT OF CARE TE ST DOCKED DEVICE UNSOLICITED RESULTS Final Result Performing Organization Address City/[facility]/ZIP Co de Phone Number [facility] [address] [place] [address] * (ABNORMAL) POCT glucose meter (10/17/2024 8:07 PM EDT) [facility] POCT Glucose 391(H) 74 - 99 mg/dL [...] Comment 10/17/2024 8:10 PM [facility] Vegetable I Farmworker ID Juordan Grimes II 10/17/2024 8:10 PM [facility] Device ID [id number] 10/17/2024 8:10 PM [facility] Specimen Type POC Capillary 10/17/2024 8:10 PM [facility] Blood Capillary blood specimen / Unknown 10/17/2024 8:07 PM EDT 10/17/2024 8:10 PM EDT us Terrell Gautam MD LAB POINT OF CARE TE ST DOCKED DEVICE UNSOLICITED RESULTS Final Result [facility] [address] [place] [address] * (ABNORMAL) POCT glucose meter (10/17/2024 4:01 PM EDT) [facility] POCT Glucose 249(H) 74 - 99 mg/dL [...] 10/17/2024 4:03 PM EDT [facility] Vegetable I Farmworker ID Keisha Waller 10/17/2024 4:03 PM [facility] Device ID [id number] 10/17/2024 4:03 PM [facility] Specimen Type POC Capillary 10/17/2024 4:03 PM [facility] Blood Capillary blood specimen / Unknown 10/17/2024 4:01 PM EDT 10/17/2024 4:03 PM EDT us Terrell Gautam MD LAB POINT OF CARE TE ST DOCKED DEVICE UNSOLICITED RESULTS Final Result Performing Organization Address City/[facility] Co de Phone Number [facility] [address] [place] [address] * (ABNORMAL) POCT glucose meter (10/17/2024 1:25 PM EDT) [facility] Signature POCT Glucose 225(H) 74 - [...] Comment 10/17/2024 1:27 PM EDT [facility] Vegetable I Farmworker ID Kizzy Godfrey 025 1:27 PM EDT [facility] Device ID [id number] 10/17/2024 1:27 PM EDT [facility] Specimen Type POC Capillary 10/17/2024 1:27 PM EDT [facility] Blood Capillary blood specimen / Unknown 10/17/2024 1:25 PM EDT 10/17/2024 1:27 PM EDT us Terrell Gautam MD LAB POINT OF CARE TE ST DOCKED DEVICE UNSOLICITED RESULTS Final Result Performing Organization Address City/[facility] Co de Phone Number [facility]ALTHCARE LAB [address] [place] [address] * [place] Less than 1 Hour Intraoperative (10/17/2024 1:18 PM EDT) Narrative IMAGING - 10/17/2024 2:05 PM EDT Images were obtained for surgical purposes. See Terrell Gautam's surgical note in the patient's chart for the findings. us Terrell Gautam MD IMG FLUOROSCOPY PROCEDURES Fi nal Result IMAGING * POCT ACT (10/17/2024 12:23 PM EDT) Pathologist [facility] ACT+ (HIGH RANGE) 211 68 - 600 Seconds 10/29/2024 7:28 AM EDT [facility] Vegetable I Farmworker ID Donna Mcmillan 10/29/2024 7:28 AM EDT [facility] ACT Device ID [id number] 10/29/2024 7:28 AM EDT [facility] Comment 10/29/2024 7:28 AM EDT [facility] Comment: ACT performed by [...] UNSOLICITED RESULTS Final Result Performing Organization Address [facility] Co de Phone Number [facility] [address] LAB [address] [place] [address] * (ABNORMAL) Blood gas, arterial (10/17/2024 11:48 AM EDT) pH, Arterial 7.34 7.31 - 7.42 LAB HEMATOLOGY METHOD 10/17/2024 11:54 AM EDT [facility] pCO2, Arterial 41 32 - 45 mmHg LAB HEMATOLOGY METHOD 10/17/2024 11:54 AM EDT [facility] pO2, Arterial 202 >80 mmHg LAB HEMATOLOGY METHOD 10/17/2024 11:54 AM EDT [facility] SO2, Measured, Arterial 100(H) 94 - 98 % LAB HEMATOLOGY METHOD 10/17/2024 11:54 AM EDT [facility] Base Excess, Arterial -3.2(L) -2.0 - 3.0 mmol/L LAB HEMATOLOGY METHOD 10/17/2024 11:54 AM EDT [facility] Bicarbonate, Calculated, Arterial 22 22 - 26 mmol/L LAB HEMATOLOGY METHOD 10/17/2024 11:54 AM EDT [facility] Hematocrit, Whole Blood 28.6(L) 40.0 - 51.0 % LAB HEMATOLOGY METHOD 10/17/2024 11:54 AM EDT [facility] Sodium, Whole Blood 137 136 - 145 mmol/L LAB HEMATOLOGY METHOD 10/17/2024 11:54 AM EDT [facility] Potassium, Whole Blood 4.5 3.6 - 4.9 mmol/L LAB HEMATOLOGY METHOD 10/17/2024 11:54 AM EDT [facility] Chloride, Whole Blood 112(H) 97 - 107 mmol/L LAB HEMATOLOGY METHOD 10/17/2024 11:54 AM EDT [facility] Glucose, Whole Blood 201(H) 74 - 99 mg/dL LAB HEMATOLOGY METHOD 10/17/2024 11:54 AM EDT [facility] Ionized Calcium, Whole Blood 4.8 4.6 - 5.1 mg/dL LAB HEMATOLOGY METHOD 10/17/2024 11:54 AM EDT [facility] Lactate, Arterial, Whole Blood 2.3(H) 0.5 - 1.6 mmol/L LAB HEMATOLOGY METHOD 10/17/2024 11:54 AM EDT [facility] Blood Arterial blood specimen / Unknown Arterial Puncture / Unknown 10/17/2024 11:48 AM EDT 10/17/2024 11:53 AM EDT us Jenna Lopez FUDGE CANDY MAKER LAB BLOOD ORDERABLES Final Re sult [facility] [address] [place] [address] * POCT ACT (10/17/2024 11:41 AM EDT) ACT+ (HIGH RANGE) 175 68 - 600 Seconds 10/29/2024 7:28 AM EDT [facility] Vegetable I Farmworker ID Oneyda Alicea 10/29/2024 7:28 AM [facility] ACT Device ID [id number] 10/29/2024 7:28 AM EDT [facility] Comment 10/29/2024 7:28 AM EDT [facility] Comment: ACT performed by [...] UNSOLICITED RESULTS Final Result Performing Organization Address City/[facility]/ZIP Co de Phone Number HEALTHCARE LAB [address] LAB [address] [place] [address] * POCT ACT (10/17/2024 11:11 AM EDT) [facility] ACT+ (HIGH RANGE) 252 68 - 600 Seconds 10/29/2024 7:28 AM EDT [facility] Vegetable I Farmworker ID Donna Mcmillan 10/29/2024 7:28 AM EDT [facility] ACT Device ID [id number] 10/29/2024 7:28 AM EDT [facility] Comment 10/29/2024 7:28 AM EDT [facility] Comment: ACT performed by [...] UNSOLICITED RESULTS Final Result Performing Organization Address City/[facility]/ZIP Co de Phone Number [facility]ARE [facility] [address] LAB [address] [place] [address] * (ABNORMAL) Blood gas, arterial (10/17/2024 10:46 AM EDT) pH, Arterial 7.35 7.31 - 7.42 LAB HEMATOLOGY METHOD 10/17/2024 10:56 AM EDT [facility] pCO2, Arterial 42 32 - 45 mmHg LAB HEMATOLOGY METHOD 10/17/2024 10:56 AM EDT [facility] pO2, Arterial 161 >80 mmHg LAB HEMATOLOGY METHOD 10/17/2024 10:56 AM EDT [facility] SO2, Measured, Arterial 100(H) 94 - 98 % LAB HEMATOLOGY METHOD 10/17/2024 10:56 AM EDT [facility] Base Excess, Arterial -2.2(L) -2.0 - 3.0 mmol/L LAB HEMATOLOGY METHOD 10/17/2024 10:56 AM EDT [facility] Bicarbonate, Calculated, Arterial 23 22 - 26 mmol/L LAB HEMATOLOGY METHOD 10/17/2024 10:56 AM EDT [facility] Hematocrit, Whole Blood 29.9(L) 40.0 - 51.0 % LAB HEMATOLOGY METHOD 10/17/2024 10:56 AM EDT [facility] Sodium, Whole Blood 138 136 - 145 mmol/L LAB HEMATOLOGY METHOD 10/17/2024 10:56 AM EDT [facility] Potassium, Whole Blood 4.0 3.6 - 4.9 mmol/L LAB HEMATOLOGY METHOD 10/17/2024 10:56 AM EDT [facility] Chloride, Whole Blood 110(H) 97 - 107 mmol/L LAB HEMATOLOGY METHOD 10/17/2024 10:56 AM EDT [facility] Glucose, Whole Blood 174(H) 74 - 99 mg/dL LAB HEMATOLOGY METHOD 10/17/2024 10:56 AM EDT [facility] Ionized Calcium, Whole Blood 5.1 4.6 - 5.1 mg/dL LAB HEMATOLOGY METHOD 10/17/2024 10:56 AM EDT [facility] Lactate, Arterial, Whole Blood 1.4 0.5 - 1.6 mmol/L LAB HEMATOLOGY METHOD 10/17/2024 10:56 AM EDT [facility] Blood Arterial blood specimen / Unknown Arterial Puncture / Unknown 10/17/2024 10:46 AM EDT 10/17/2024 10:54 AM EDT us Jenna Lopez FUDGE CANDY MAKER LAB BLOOD ORDERABLES Final Re sult [facility] [address] [place] [address] * POCT ACT (10/17/2024 10:37 AM EDT) ACT+ (HIGH RANGE) 206 68 - 600 Seconds 10/29/2024 7:28 AM [facility]T [facility] Vegetable I Farmworker ID Donna Mcmillan 10/29/2024 7:28 AM EDT [facility] ACT Device ID [id number] 10/29/2024 7:28 AM EDT [facility] Comment 10/29/2024 7:28 AM EDT [facility] Comment: ACT performed by staff at [...] UNSOLICITED RESULTS Final Result Performing Organization Address [facility] Co de Phone Number [facility] [address] [place] [address] * Surgical Pathology Exam (10/17/2024 10:27 AM EDT) Case Report Surgical Pathology Case: [id number] Authorizing Provider: Terrell Gautam MD Collected: 10/17/2024 1027 Ordering Location: [facility] Received: 10/17/2024 1325 Pathologist: Haydee Osborne MD Specimen: Other (specify site), left common femoral plaque 10/21/2024 10:16 AM EDT [facility] Final Diagnosis A. LEFT COMMON FEMORAL PLAQUE, EXCISION: - CALCIFIED PLAQUE 10/21/2024 10:16 AM EDT [facility] at 1016 EDT Clinical Information Critical limb ischemia of left lower extremity [I70.222] 10/21/2024 10:16 AM EDT [facility] Gross Description A. LEFT COMMON FEMORAL PLAQUE Received in formalin labeled l eft common femoral plaque , is one aggregate of red-gabriel hard portions of plaque measuring 3.7 x 2.5 x 0.9 cm. The specimen is serially sectioned and education courses sales representative sections are submitted in cassette A1. Cold Time: <1m Kenia C Yola 10/21/2024 10:16 AM EDT [facility] Note: A resident was involved in the service. I attest I examined the relevant preparations for the specimens and confirmed the diagnosis or interpretation. 10/21/2024 10:16 AM EDT [facility] Tissue Topography unknown / Unknown 10/17/2024 10:27 AM EDT 10/17/2024 1:25 PM EDT Comment:Pre-op diagnosis: Critical limb ischemia of left lower extremity [I70.222] us Terrell Gautam MD LAB PATHOLOGY ORDERABLES Gwen grimaldo Result [facility] [address] [place] [address] * POCT ACT (10/17/2024 10:03 AM EDT) ACT+ (HIGH RANGE) 244 68 - 600 Seconds 10/29/2024 7:28 AM EDT [facility] Vegetable I Farmworker ID Donna Mcmillan 10/29/2024 7:28 AM EDT [facility] ACT Device ID [id number] 10/29/2024 7:28 AM EDT [facility] Comment 10/29/2024 7:28 AM EDT [facility] Comment: ACT performed by [...] ST DOCKED DEVICE UNSOLICITED RESULTS Final Result [facility] [address] LAB [address] [place] [address] * (ABNORMAL) Blood gas, arterial (10/17/2024 9:45 AM EDT) pH, Arterial 7.37 7.31 - 7.42 LAB HEMATOLOGY METHOD 10/17/2024 9:55 AM EDT [facility] pCO2, Arterial 43 32 - 45 mmHg LAB HEMATOLOGY METHOD 10/17/2024 9:55 AM EDT [facility] pO2, Arterial 177 >80 mmHg LAB HEMATOLOGY METHOD 10/17/2024 9:55 AM EDT [facility] SO2, Measured, Arterial 100(H) 94 - 98 % LAB HEMATOLOGY METHOD 10/17/2024 9:55 AM EDT [facility] Base Excess, Arterial -0.5 -2.0 - 3.0 mmol/L LAB HEMATOLOGY METHOD 10/17/2024 9:55 AM EDT [facility] Bicarbonate, Calculated, Arterial 25 22 - 26 mmol/L LAB HEMATOLOGY METHOD 10/17/2024 9:55 AM EDT [facility] Hematocrit, Whole Blood 30.0(L) 40.0 - 51.0 % LAB HEMATOLOGY METHOD 10/17/2024 9:55 AM EDT [facility] Sodium, Whole Blood 137 136 - 145 mmol/L LAB HEMATOLOGY METHOD 10/17/2024 9:55 AM EDT [facility] Potassium, Whole Blood 4.3 3.6 - 4.9 mmol/L LAB HEMATOLOGY METHOD 10/17/2024 9:55 AM EDT [facility] Chloride, Whole Blood 108(H) 97 - 107 mmol/L LAB HEMATOLOGY METHOD 10/17/2024 9:55 AM EDT [facility] Glucose, Whole Blood 191(H) 74 - 99 mg/dL LAB HEMATOLOGY METHOD 10/17/2024 9:55 AM EDT [facility] Ionized Calcium, Whole Blood 5.0 4.6 - 5.1 mg/dL LAB HEMATOLOGY METHOD 10/17/2024 9:55 AM EDT [facility] Lactate, Arterial, Whole Blood 1.3 0.5 - 1.6 mmol/L LAB HEMATOLOGY METHOD 10/17/2024 9:55 AM EDT [facility] Blood Arterial blood specimen / Unknown Arterial Line / Unknown 10/17/2024 9:45 AM EDT 10/17/2024 9:52 AM EDT us Jenna Lopez CRNA LAB BLOOD ORDERABLES Final Re sult [facility] [address] [place] [address] * (ABNORMAL) Blood gas, arterial (10/17/2024 8:47 AM EDT) pH, Arterial 7.37 7.31 - 7.42 LAB HEMATOLOGY METHOD 10/17/2024 8:59 AM EDT [facility] pCO2, Arterial 43 32 - 45 mmHg LAB HEMATOLOGY METHOD 10/17/2024 8:59 AM EDT [facility] pO2, Arterial 205 >80 mmHg LAB HEMATOLOGY METHOD 10/17/2024 8:59 AM EDT [facility] SO2, Measured, Arterial 100(H) 94 - 98 % LAB HEMATOLOGY METHOD 10/17/2024 8:59 AM EDT [facility] Base Excess, Arterial -0.3 -2.0 - 3.0 mmol/L LAB HEMATOLOGY METHOD 10/17/2024 8:59 AM EDT [facility] Bicarbonate, Calculated, Arterial 25 22 - 26 mmol/L LAB HEMATOLOGY METHOD 10/17/2024 8:59 AM EDT [facility] Hematocrit, Whole Blood 31.3(L) 40.0 - 51.0 % LAB HEMATOLOGY METHOD 10/17/2024 8:59 AM EDT [facility] Sodium, Whole Blood 138 136 - 145 mmol/L LAB HEMATOLOGY METHOD 10/17/2024 8:59 AM EDT [facility] Potassium, Whole Blood 4.0 3.6 - 4.9 mmol/L LAB HEMATOLOGY METHOD 10/17/2024 8:59 AM EDT [facility] Chloride, Whole Blood 108(H) 97 - 107 mmol/L LAB HEMATOLOGY METHOD 10/17/2024 8:59 AM EDT [facility] Glucose, Whole Blood 162(H) 74 - 99 mg/dL LAB HEMATOLOGY METHOD 10/17/2024 8:59 AM EDT [facility] Ionized Calcium, Whole Blood 5.2(H) 4.6 - 5.1 mg/dL LAB HEMATOLOGY METHOD 10/17/2024 8:59 AM EDT [facility] Lactate, Arterial, Whole Blood 1.7(H) 0.5 - 1.6 mmol/L LAB HEMATOLOGY METHOD 10/17/2024 8:59 AM EDT [facility] Blood Arterial blood specimen / Unknown Arterial Puncture / Unknown 10/17/2024 8:47 AM EDT 10/17/2024 8:58 AM EDT us Jenna Lopez CRNA LAB BLOOD ORDERABLES Final Re sult Performing Organization Address City/State/[facility] de Phone Number [facility] [address] [place] [address] * POCT ACT (10/17/2024 8:46 AM EDT) ACT+ (HIGH RANGE) 101 68 - 600 Seconds 10/29/2024 7:28 AM EDT [facility]ALTH[facility] Vegetable I Farmworker ID Donna Mcmillan 10/29/2024 7:28 AM EDT [facility] ACT Device ID [id number] 10/29/2024 7:28 AM EDT [facility]ALTH[facility]ARE [facility] Comment 10/29/2024 7:28 AM EDT [facility] Comment: ACT performed by [...] RESULTS Final Result [facility] [address] LAB [address] [place] [address] * Type and Screen (10/17/2024 7:19 AM EDT) [facility] ABO/Rh A Negative 10/17/2024 7:04 AM EDT BLOOD BANK Antibody Screen Negative 10/17/2024 7:04 AM EDT BLOOD BANK Specimen Expiration 10/20/2024 23:59 10/17/2024 7:04 AM EDT BLOOD BANK Blood Venous blood specimen / Unknown Venipuncture / Unknown 10/17/2024 7:19 AM EDT 10/17/2024 7:28 AM EDT Maria Fernanda Mccallum MD LAB BLOOD BANK TEST ORDERAB LES Final Result Performing Organization Address [facility] de Phone Number BLOOD BANK [address] [place] [address], * (ABNORMAL) POCT glucose meter (10/17/2024 6:44 AM EDT) [facility] POCT Glucose 178(H) 74 - 99 mg/dL [...] 10/17/2024 6:49 AM EDT [facility] Vegetable I Farmworker ID Hunter Burroughs 10/18/19 6:49 AM EDT [facility] Device ID [id number] 10/17/2024 6:49 AM EDT [facility] Specimen Type POC Capillary 10/17/2024 6:49 AM EDT [facility]ALTH[facility]ARE [facility] Blood Capillary blood specimen / Unknown 10/17/2024 6:44 AM EDT 10/17/2024 6:49 AM EDT us Terrell Gautam MD LAB POINT OF CARE TE ST DOCKED DEVICE UNSOLICITED RESULTS Final Result [facility] [address] [place] [address] documented in this encounter Visit Diagnoses Diagnosis [...] documented as of this encounter Care Teams Leather Belt Loop Cutter Relationship Specialty Start Date End Date Asad Victor MD [address] [place] [id number] PCP - General 10/07/22 documented as of this encounter
--- OUTSIDE RECORDS SUMMARY | 2024-10-17 07:51 | XMS_ITS | Encounter Summary ---
Author Organization [facility] Address [address] [id number] Care Team Providers Care Varitype Operator Name Role Phone Asad Victor MD Primary Care Provider + [phone] Reason for Visit * Auth/Cert (Routine) Specialty Diagnoses / Procedures Referred By Contac t Referred To Contact Diagnoses Critical limb ischemia of left lower extremity Critical limb ischemia of left lower extremity [I70.222] Procedures NE VEIN BYPASS GRAFT,FEM-POP CREATION, BYPASS, ARTERIAL, FEMORAL TO POPLITEAL Terrell Gautam MD [address] [facility] [address] [place] [address] Phone: tel: fax: PAV A OPERATING ROOM [address] [place] [address] Phone: tel: Referral ID Status Reason Start Date Expiration Date Visits Re quested Visits Authorized [id number] 1 1 Encounter Details Date Type Department Care Team (Late st Contact Info) Description 10/17/2024 7:51 AM EDT Anesthesia Event PAV A OPERATING ROOM [address] [place] [phone] Maria Fernanda Mccallum MD [address] [place] [address] Anesthesia Record Procedure Summary Procedure [...] Hand; Site Prep: Chlorhexidine ; Local Anesth: [place]; Technique: Anatomical landmarks; Inserted by: CHRISTIAN Acuna; [...] any time in the past 12 m [facility], were you homeless or living in a [facility] (including now)? No 10/18/2024 CAGE ASSESSMENT Answer [...] drink first t dino in the morning (EYE-SENIOR MANAGER ASSET PROTECTION) to steady your nerves or to get [...] * Anesthesia Postprocedure Evaluation - Jenna Lopez, WILD ANIMAL CARETAKER - 10/17/2024 1:29 PM EDT Patient: Mono [...] by Swetha Villareal MD Staffing Performed: ISH WILD ANIMAL CARETAKER: Jenna Lopez CRNA * Anesthesia Procedure Notes - Jenna Lopez CRNA - 10/17/2024 9:00 AM EDT Associated Order(s): Airway Airway Date/Time: 10/17/2024 8:03 AM Reason: elective Airway not difficult General Information and Staff Patient location during procedure: OR WILD ANIMAL CARETAKER: Jenna Lopez CRNA Performed: WILD ANIMAL CARETAKER Patient Condition Indications for airway management: anesthesia [...] note 09/25/24 (media) + CAD s/p multiple AR's and 3V CABG 02/2019, 2 stents prior to CABG Atrial Fibrillation with RVR s/p CABG + carotid artery disease s/p R CEA 2016 + 3rd degree AV block ASSISTANT AT SURGERY-P placed 08/2023 for Wenkeback with 11 sec pause + HLD + HTN - controlled + PAD 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 CORONARY ANGIOPLASTY Left Coronary Angiography With Concomitant Left Heart Catheterization from [facility] ??? CORONARY ARTERY BYPASS GRAFT N/A 2018 [...] Info) Description 12/19/2024 7:30 AM EDT Appointment [facility] [address] [place] [address] 12/19/2024 8:00 AM EDT Appointment [facility] [address] [place] [address] 12/19/2024 9:00 AM EDT Office Visit [facility] [address] [place] [address] Nathaly Nowak MD [address] [facility] [address] [place] [address] documented as of this encounter Goals Goal [...] ANESTHESIA PLACEHOLDER Routine 10/17/2024 8:03 AM EDT NE AN ELECTIVE ENDOTRACHEAL AIRWAY Routine 10/17/2024 8:03 [...] by Swetha Villareal MD Staffing Performed: ISH WILD ANIMAL CARETAKER: Jenna Lopez CRNA Maria Fernanda Mccallum MD ANESTHESIA ORDERABLES Edite d Result - Final * NE AN ELECTIVE ENDOTRACHEAL AIRWAY, PB ANESTHESIA PLACEHOLDER (10/17/2024 8:03 AM EDT) Jenna Martinez CRNA - 10/17/2024 8:03 AM EDT Jenna Lopez CRNA 10/17/2024 9:00 AM Airway Date/Time: 10/17/2024 8:03 AM Reason: elective Airway not difficult General Information and Staff Patient location during procedure: OR WILD ANIMAL CARETAKER: Jenna Lopez CRNA Performed: WILD ANIMAL CARETAKER Patient Condition Indications for airway management: anesthesia [...] Mccallum MD ANESTHESIA ORDERABLES Final Result * [facility] AN POCUS CARDIAC PROCDOC (10/17/2024 7:18 AM [...] Trace AR. The images were Saved in [employer] E. The study was technically adequate. Comments: [...] documented as of this encounter Care Teams Varitype Operator Relationship Specialty Start Date End Date Asad Victor MD [address] [facility] [place] [id number] PCP - General 10/07/22 documented as of this encounter
--- OUTSIDE RECORDS SUMMARY | 2024-10-17 08:00 | XMS_ITS | Encounter Summary ---
Author Organization [facility] Address [address] [place] [address] Care Team Providers Care Car Dispatcher Name Role Phone Asad Victor MD Primary Care Provider + [phone] Reason for Visit * Auth/Cert (Routine) Specialty Diagnoses / Procedures Referred By Contac t Referred To Contact Diagnoses Critical limb ischemia of left lower extremity Critical limb ischemia of left lower extremity [I70.222] Procedures ID VEIN BYPASS GRAFT,FEM-POP CREATION, BYPASS, ARTERIAL, FEMORAL TO POPLITEAL Terrell Gautam MD [address] [address] Phone: tel: fax: [facility] [address] [place] [address] Phone: tel: Referral ID Status Reason Start Date Expiration Date Visits Re quested Visits Authorized [id number] 1 1 Encounter Details Date Type Department Care Team (Late st Contact Info) Description 10/17/2024 8:00 AM EDT - 10/17/2024 2:50 PM EDT Surgery [facility] [address] [place] [address] Terrell Gautam MD [address] [address] CREATION, BYPASS, ARTERIAL, FEMORAL TO POPLITEAL [64597 (CPT )] Surgery Details Date/Time Status Location [...] drink first t dino in the morning (EYE-ASSOCIATE CREATIVE DIRECTOR) to steady your nerves or to get rid of a hangover? 0 10/18/2021 CAGE Questionnaire Score 0 022 Utilities Answer Date Recorded In the past 12 months has th e Last Size, gas, oil, or water [employer] threatened to shut off services in your [...] provided Taken 10/17/20242107 by Jourdan Grimes II, superintendent mechanical Review/Management: medications reviewed Problem: Skin Injury Risk [...] Ongoing, Progressing Intervention: Promote Activity and Functional Flathead Flowsheets (Taken 10/19/2024 1048) Self-Care Promotion: BADL personal objects within reach meal set-up provided * Yuni Ramires - Keyla Chow - 10/19/2024 11:45 AM EDT Images from the original note were not included. [address] After Peripheral Artery Bypass Surgery: In the [...] home. Last Reviewed Date: 2023 00:00:00 ?? [id number] The [employer]. All rights reserved. This information is not intended as a substitute for professional medical care. Always follow your healthcare professional's instructions. * Progress Notes - Emelina Friend - 10/19/2024 11:44 AM EDT Case Management Adult Progress Note Bev Bobby 64 y.o. male CSN: [id number] Admission: 10/17/2024 6:21 AM Primary Problem: Critical [...] if any other needs arise. Emelina Friend AIR MOTOR REPAIRER, WORK ORDER DETAILER Social Work Case Management * Yuni Ramires - Keyla Chow - 10/19/2024 11:44 AM EDT Images from the original note were not included. [id number] Peripheral Artery Disease (PAD) Peripheral artery disease [...] cause. Last Reviewed Date: 2024 00:00:00 ?? [id number] The [employer]. All rights reserved. This information is not intended as a substitute for professional medical care. Always follow your healthcare professional's instructions. * Yuni Ramires - Keyla Chow - 10/19/2024 11:44 AM EDT Images from the original note were not included. 45870 Leg Artery Emergencies: Critical Limb Ischemia (CLI) [...] appointments. Last Reviewed Date: 2023 00:00:00 ?? [id number] [employer]. All rights reserved. This information is not [...] MD (Inactive) [address] [facility] [address] Referring provider name and address: Timothy Marques PA [address] [place] [address] Chief Concern, Brief History of Present Illness, and Hospital Course Bev Bobby is an 64 y.o. 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 [...] Medications These medications were sent to [facility] [place], [place] - [address] 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 [...] provided Taken 10/17/20242107 by Jourdan Grimes II superintendent mechanical Review/Management: medications reviewed Problem: Skin Injury Risk [...] Ongoing, Progressing Intervention: Promote Activity and Functional Flathead Flowsheets (Taken 10/19/2024 1048) Self-Care Promotion: BADL [...] evaluation. PARTICIPANTS IN CARE Visitors Present No Costumer Assistant (if applicable) PRESENTATION Oxygen Oxygen Therapy: None [...] Level of Mobility Ambulatory- household only Mobility Flathead Independent gait with device (rollator) History of [...] numbness in rodney) BED MOBILITY Level of Flathead Physical/Non- physical Assist Adaptive Equipment Utilized Rolling/ Turning Scooting/ Bridging Modified independence (anteriorly to EOB) Bed rails Supine to Sit Modified Flathead (to the right) (HOB flat) Bed rails Sit to Supine Interventions HOB flat to simulate home environment TRANSFERS Level of Flathead Physical/Non- physical Assist Adaptive Equipment Utilized Sit [...] stable surfaces during transitions. AMBULATION Level of Flathead Distance Adaptive Equipment Utilized Ambulation Standby assist, [...] Posture: Forward head, Rounded shoulders Level of Flathead Balance Support Interventions Static Sit Independent Right [...] Mobility Assessment [facility] 6-Clicks Mobility Assessment Difficulty patient has turning [...] A little [facility] 6-Clicks Mobility Assessment Total : 22 ASSESSMENT [...] evaluation/session. Participants in Care Family/Caregiver Present: No Costumer Assistant: Not Applicable Presentation Oxygen Therapy: None (Room [...] Level of Mobility: Ambulatory- household only Mobility Flathead: Independent gait with device (rollator) History of [...] Mobility Bed Mobility Exam: Scooting/Bridging Level of Flathead: Modified independence (anteriorly to EOB) Assistive Device: Bed rails Bed Mobility Exam: Supine to Sit Level of Flathead: Modified Flathead (to the right) Physical/Nonphysical Assist: (HOB flat) Assistive Device: Bed rails Transfers Transfer Exam: Sit to stand Level of Flathead: Stand-by assist Physical/Nonphysical Assist: Supervision, Verbal Cues, Minimal cues Assistive Device: Walker, rolling Transfer Exam: Stand to Sit Level of Flathead: Stand-by assist Physical/Nonphysical Assist: Supervision, Verbal Cues, [...] Score: 23/24 [facility] Scoring Interpretation: Scores greater than 20.5 suggest [...] Note Bev Bobby 64 y.o. male CSN: [id number] Admission: 10/17/2024 6:21 AM Primary Problem: Critical limb ischemia of left lower extremity Water Manager reviewed chart and spoke with patient to complete this Initial Case Management Assessment. PCP: Asad Victor MD (Inactive) - Dr. Palomo Preferred pharmacy is [facility] Emergency Contact: Extended Emergency Contact Information Primary Emergency Contact: Patti Hill Relation: Sister Costumer Assistant needed? No Insurance: Primary Visit Coverage Payer Plan Sponsor Code Group Number Group Name [facility] RE[facility]ACEMENT [id number] Primary Visit Coverage Subscriber Subscriber ID Subscriber Name Subscriber [facility] Subscriber Address [id number] BEV BOBBY [id number] [place] [address] Secondary Visit Coverage Payer Plan Sponsor Code Group Number Group Name [employer] [facility] [facility] Secondary Visit Coverage Subscriber Subscriber ID Subscriber Name Subscriber [facility] Subscriber Address [id number] BEV BOBBY [id number] [place] [address] Patient information: Primary Caregiver: Self Daily Living Activities: Functional Status: Independent Living Arrangements: Alone Type of Residence: Private residence, Single Level [address] [place] [address] Current DME: Equipment Currently Used at Home: joy monterroso Income Information: Income Source: Retired Income/Expense Information: Income meets expenses Current Resources Utilized: Food Quinn Housing Circumstances-Z Codes: Housing Circumstances (select all [...] Dialysis Services: None. Living Will/Advance Directive/Power of Oil And Gas Field Technician /Guardian: Denied. Additional Comments: Patient is not medically ready for discharge. SW will continue to follow. Mariia Monterroso WORK ORDER DETAILER * Care Plan - Emilia Alonso RN [...] from the original note were not included. [facility] Department of Surgery Division of [...] Prevention: activity supervised assistive device/personal items within [facility] fall prevention program maintained lighting adjusted [...] Agree with above assessment and evaluation from resident/HOUSE WORKER. * Op Note - Terrell Gautam MD - 10/17/2024 8:52 AM EDT Operative Note Date: 10/17/24 Location: [facility] Name: Bev Bobby, : 1960, Diagnoses: Pre-op Diagnosis Critical limb ischemia of left lower extremity Common femoral artery pseudoaneurysm Post-op Diagnosis Critical limb ischemia of left lower extremity Common femoral artery pseudoaneurysm Procedure(s): Left common/superficial/profunda femoral thromboendarterectomy with bovine patch repair Left external iliac artery/WIRE ROPE FABRICATION SUPERVISOR stent Attending Surgeon(s): * Terrell Gautam - Primary Crackling Press Operator(s): * Luna Beckett MD - [...] Reasons Recent surgery contiguous with urinary tract/SUPERVISOR OF COMMUNICATIONS/colorectal 10/17/24 190 Output (mL) 50 mL 10/18/24 08 Implants Type Name Action Serial No. VASCUGUARD 8 X 8 - [id number] Implanted STENT ENDOPROSTHESIS VIABAHN 9FR [id number] - [id number] Implanted [id number] Specimen: Specimens ID Source Frozen? 1 Other [...] and distal control. We then proceeded with famsh-znw-[id number] exposure of the popliteal artery. A medial [...] balloon dilated thestent with a 9 mm [place]. We closed the arteriotomy with a single [...] 10/17/2024 8:52 AM EDT Date: 10/17/24 Location: [facility] Name: Bev Bobby, : 1960, Diagnoses: Pre-op Diagnosis Critical limb ischemia of left lower extremity Common femoral artery pseudoaneurysm Post-op Diagnosis Critical limb ischemia of left lower extremity Common femoral artery pseudoaneurysm Procedure(s): Left common/superficial/profunda femoral thromboendarterectomy with bovine patch repair Left external iliac artery/WIRE ROPE FABRICATION SUPERVISOR stent Attending Surgeon(s): * Terrell Gautam - Primary Crackling Press Operator(s): * Luna Beckett MD - Resident - Assisting * Dandy Baltazar MD - Fellow Anesthesia: General ASA: III Blood Administration: Blood Product Administration History None Estimated Blood Loss: 300 mL Drains: Urethral Catheter Temperature probe 16 Fr. (Active) Implants Type Name Action Serial No. VASCUGUARD 8 X 8 - [id number] Implanted STENT ENDOPROSTHESIS VIABAHN 9FR [id number] - [id number] Implanted [id number] Specimen: Specimens ID Source Frozen? 1 Other [...] issues. 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 He previouslyunderwent thrombin injection. He reports pain in his calves. He presents today for scheduled left lower extremity femoral to sovrl-mvi-dwgg popliteal bypass. Planned likely use PTFE. He [...] 16. Results Review {Vanishing Link Review Results :[id number] I have reviewed the latest lab and imaging results. Assessment & Plan Critical limb ischemia of left lower extremity Proceed with scheduled surgery left lower extremity femoral to vgvse-ozo-zsqg popliteal artery bypass graft. Extensive discussion had [...] Info) Description 12/19/2024 7:30 AM EDT Appointment [facility] [address] [place] [address] 12/19/2024 8:00 AM EDT Appointment [facility] [address] [place] [address] 12/19/2024 9:00 AM EDT Office Visit [facility] [address] [place] [address] Nathaly Nowak MD [address] [facility] [address] [place] [address] Pending Results Name Type Priority Associated Diagnoses [...] lower extremity Pseudoaneurysm of left femoral artery ([facility]/HCC) Expected: 11/19/2024, Expires: 04/22/2026 documented as [...] - 99 mg/dL 10/19/2024 11:42 AM EDT [facility] Comment:Accuracy of a glucos e result [...] Comment 10/19/2024 11:42 AM EDT HEALTHCARE LAB Audio Technician ID Job Andrew 10/20/19 11:42 AM EDT HEALTHCARE LAB Device ID [id number] 10/19/2024 11:42 AM EDT [facility]ALTHCARE LAB Specimen Type POC Capillary 10/19/2024 11:42 AM EDT [facility] Blood Capillary blood specimen / Unknown 10/19/2024 11:40 AM EDT 10/19/2024 11:42 AM EDT us Terrell Gautam MD LAB POINT OF CARE TE ST DOCKED DEVICE UNSOLICITED RESULTS Final Result Performing Organization Address City/[facility]/ZIP Co de Phone Number [facility] [address] [place] [address] * (ABNORMAL) Protime-INR (10/19/2024 8:25 AM EDT) [...] Performing Organization Address City/[facility]/ZIP Co de Phone Number [facility] [address] [place] [address] * (ABNORMAL) Phosphorus (10/19/2024 8:25 AM EDT) Phosphorus, Plasma 2.2(L) 2.5 - 4.5 mg/dL 10/19/2024 9:12 AM EDT [facility] Blood Venous blood specimen / Unknown Venipuncture / Unknown 10/19/2024 8:25 AM EDT 10/19/2024 8:43 AM EDT Nirmal Cueto MD LAB BLOOD ORDERABLES Final Result [facility] [address] [place] [address] * Magnesium (10/19/2024 8:25 AM EDT) Magnesium, Plasma 2.1 1.9 - 2.4 mg/dL 10/19/2024 9:12 AM EDT [facility] Blood Venous blood specimen / Unknown Venipuncture / Unknown 10/19/2024 8:25 AM EDT 10/19/2024 8:43 AM EDT Nirmal Cueto MD LAB BLOOD ORDERABLES Final Result [facility] [address] [place] [address] * (ABNORMAL) Basic metabolic panel (10/19/2024 8:25 [...] Final Result [facility] [address] [place] [address] * (ABNORMAL) CBC W/O Differential (10/19/2024 8:25 [...] Final Result [facility] [address] [place] [address] * (ABNORMAL) POCT glucose meter (10/19/2024 7:35 [...] Comment 10/19/2024 7:37 AM EDT HEALTHCARE LAB Audio Technician ID KamranJob 10/20/19 7:37 AM EDT [facility] Device ID [id number] 10/19/2024 7:37 AM EDT [facility] Specimen Type POC Capillary 10/19/2024 7:37 AM EDT [facility]ALTH[facility]ARE LAB Blood Capillary blood specimen / Unknown 10/19/2024 7:35 AM EDT 10/19/2024 7:37 AM EDT Terrell Gautam MD LAB POINT OF CARE TE ST DOCKED DEVICE UNSOLICITED RESULTS Final Result Performing Organization Address City/[facility] Co de Phone Number [facility]ALTHCARE LAB [address] [place] [address] * (ABNORMAL) POCT glucose meter (10/18/2024 7:22 [...] 10/18/2024 7:24 PM EDT [facility] Audio Technician ID Mahesh Aldana 10/18/2024 7:24 PM EDT HEALTHCARE LAB Device ID [id number] 10/18/2024 7:24 PM EDT HEALTHCARE LAB Specimen Type POC Capillary 10/18/2024 7:24 PM EDT [facility] Blood Capillary blood specimen / Unknown 10/18/2024 7:22 PM EDT 10/18/2024 7:24 PM EDT us Terrell Gautam MD LAB POINT OF CARE TE ST DOCKED DEVICE UNSOLICITED RESULTS Final Result Performing Organization Address City/[facility] Co de Phone Number [facility]ARE [facility] [address] [place] [address] * (ABNORMAL) POCT glucose meter (10/18/2024 6:07 [...] 10/18/2024 6:09 PM EDT [facility] Audio Technician ID David Parks 10/18/2024 6:09 PM EDT [facility] Device ID [id number] 10/18/2024 6:09 PM EDT [facility] Specimen Type POC Capillary 10/18/2024 6:09 PM EDT [facility]ALTH[facility] Blood Capillary blood specimen / Unknown 10/18/2024 6:07 PM EDT 10/18/2024 6:09 PM EDT Terrell Gautam MD LAB POINT OF CARE TE ST DOCKED DEVICE UNSOLICITED RESULTS Final Result Performing Organization Address City/State/[facility] Co de Phone Number [facility] [address] [place] [address] * (ABNORMAL) POCT glucose meter (10/18/2024 11:56 AM EDT) [facility] POCT Glucose 233(H) 74 - 99 mg/dL [...] 10/21/2024 7:42 AM EDT [facility] Audio Technician ID Venessa Marcano 10/21/2024 7:42 AM EDT [facility] Device ID [id number] 10/21/2024 7:42 AM EDT [facility]ALTH[facility]ARE LAB Specimen Type POC Capillary 10/21/2024 7:42 AM EDT [facility] LAB Blood Capillary blood specimen / Unknown 10/18/2024 11:56 AM EDT 10/21/2024 7:42 AM EDT Terrell Gautam MD LAB POINT OF CARE TE ST DOCKED DEVICE UNSOLICITED RESULTS Final Result Performing Organization Address City/[facility] de Phone Number [facility] [address] [place] [address] * (ABNORMAL) POCT glucose meter (10/18/2024 9:24 [...] for testing. Comment 10/21/2024 7:42 AM EDT [facility] Audio Technician ID Emilia Alonso 7:42 AM EDT HEALTHCARE LAB Device ID [id number] 10/21/2024 7:42 AM EDT [facility] Specimen Type POC Venous 10/21/2024 7:42 AM EDT [facility] Blood Venous blood specimen / Unknown 10/18/2024 9:24 AM EDT 10/21/2024 7:42 AM EDT us Terrell Gautam MD LAB POINT OF CARE TE ST DOCKED DEVICE UNSOLICITED RESULTS Final Result Performing Organization Address City/[facility] Co de Phone Number [facility] [address] [place] [address] * (ABNORMAL) POCT glucose meter (10/18/2024 7:36 [...] Comment 10/18/2024 7:38 AM EDT [facility]ALTHCARE LAB Audio Technician ID Kizzy Godfrey 025 7:38 AM EDT HEALTHCARE LAB Device ID [id number] 10/18/2024 7:38 AM EDT [facility]ALTH[facility]ARE LAB Specimen Type POC Capillary 10/18/2024 7:38 AM EDT [facility] Blood Capillary blood specimen / Unknown 10/18/2024 7:36 AM EDT 10/18/2024 7:38 AM EDT us Terrell Gautam MD LAB POINT OF CARE TE ST DOCKED DEVICE UNSOLICITED RESULTS Final Result Performing Organization Address City/State/[facility] Co de Phone Number [facility]ARE LAB [address] [place] [address] * (ABNORMAL) CBC (10/18/2024 2:09 AM EDT) [...] Final Result [facility] [address] [place] [address] * (ABNORMAL) Basic metabolic panel (10/18/2024 2:09 [...] AM EDT 10/18/2024 2:25 AM EDT Nirmal Ceuto MD LAB BLOOD ORDERABLES Final Result [facility] [address] [place] [address] * (ABNORMAL) Magnesium (10/18/2024 2:09 AM EDT) Magnesium, Plasma 1.8(L) 1.9 - 2.4 mg/dL 10/18/2024 2:53 AM EDT [facility] Blood Venous blood specimen / Unknown Venipuncture / Unknown 10/18/2024 2:09 AM EDT 10/18/2024 2:25 AM EDT Nirmal Cueto MD LAB BLOOD ORDERABLES Final Result Performing Organization Address City/[facility]/ZIP Co de Phone Number [facility] [address] [place] [address] * Phosphorus (10/18/2024 2:09 AM EDT) Phosphorus, Plasma 3.7 2.5 - 4.5 mg/dL 10/18/2024 2:53 AM EDT [facility] Blood Venous blood specimen / Unknown Venipuncture / Unknown 10/18/2024 2:09 AM EDT 10/18/2024 2:25 AM EDT us Nirmal Cueto MD LAB BLOOD ORDERABLES Final Result Performing Organization Address City/[facility]/ZIP Co de Phone Number [facility] [address] [place] [address] * (ABNORMAL) Protime-INR (10/18/2024 2:09 AM EDT) [...] Result [facility] [address] [place] [address] * (ABNORMAL) POCT glucose meter (10/18/2024 2:08 AM EDT) POCT Glucose 202(H) 74 - 99 mg/dL 10/18/2024 2:10 AM EDT [facility] Comment:Accuracy of a glucos e result [...] for testing. Comment 10/18/2024 2:10 AM EDT [facility] Audio Technician ID Jourdan Grimes II 10/18/2024 2:10 AM EDT [facility] Device ID [id number] 10/18/2024 2:10 AM EDT [facility] Specimen Type POC Capillary 10/18/2024 2:10 AM EDT [facility] Blood Capillary blood specimen / Unknown 10/18/2024 2:08 AM EDT 10/18/2024 2:10 AM EDT Terrell Gautam MD LAB POINT OF CARE TE ST DOCKED DEVICE UNSOLICITED RESULTS Final Result Performing Organization Address City/[facility]/ZIP Co de Phone Number [facility] [address] [place] [address] * (ABNORMAL) POCT glucose meter (10/17/2024 10:07 [...] Comment 10/17/2024 10:10 PM EDT [facility]ALTH[facility]ARE LAB Audio Technician ID Jourdan Grimes II 10/17/2024 10:10 PM EDT HEALTHCARE LAB Device ID [id number] 10/17/2024 10:10 PM EDT [facility] Specimen Type POC Capillary 10/17/2024 10:10 PM EDT [facility] Blood Capillary blood specimen / Unknown 10/17/2024 10:07 PM EDT 10/17/2024 10:10 PM EDT us Terrell Gautam MD LAB POINT OF CARE TE ST DOCKED DEVICE UNSOLICITED RESULTS Final Result [facility] [address] [place] [address] * (ABNORMAL) POCT glucose meter (10/17/2024 8:07 [...] Comment 10/17/2024 8:10 PM EDT [facility]ARE LAB Audio Technician ID Jourdan Grimes II 10/17/2024 8:10 PM EDT HEALTHCARE LAB Device ID [id number] 10/17/2024 8:10 PM EDT [facility]ALTH[facility]ARE LAB Specimen Type POC Capillary 10/17/2024 8:10 PM EDT [facility] Blood Capillary blood specimen / Unknown 10/17/2024 8:07 PM EDT 10/17/2024 8:10 PM EDT us Terrell Gautam MD LAB POINT OF CARE TE ST DOCKED DEVICE UNSOLICITED RESULTS Final Result Performing Organization Address City/State/[facility] Co de Phone Number [facility] [address] [place] [address] * (ABNORMAL) POCT glucose meter (10/17/2024 4:01 [...] Comment 10/17/2024 4:03 PM EDT [facility]ALTH[facility]ARE LAB Audio Technician ID Keisha Waller 10/17/2024 4:03 PM EDT HEALTHCARE LAB Device ID [id number] 10/17/2024 4:03 PM EDT [facility]ALTH[facility]ARE LAB Specimen Type POC Capillary 10/17/2024 4:03 PM EDT [facility] Blood Capillary blood specimen / Unknown 10/17/2024 4:01 PM EDT 10/17/2024 4:03 PM EDT us Terrell Gautam MD LAB POINT OF CARE TE ST DOCKED DEVICE UNSOLICITED RESULTS Final Result Performing Organization Address [facility] Co de Phone Number [facility]ARE [facility] [address] [place] [address] * (ABNORMAL) POCT glucose meter (10/17/2024 1:25 PM EDT) [facility] POCT Glucose 225(H) 74 - 99 mg/dL [...] Comment 10/17/2024 1:27 PM EDT [facility]ALTH[facility]ARE LAB Audio Technician ID Kizzy Godfrey 025 1:27 PM EDT HEALTHCARE LAB Device ID [id number] 10/17/2024 1:27 PM EDT [facility] Specimen Type POC Capillary 10/17/2024 1:27 PM EDT [facility] Blood Capillary blood specimen / Unknown 10/17/2024 1:25 PM EDT 10/17/2024 1:27 PM EDT Terrell Gautam MD LAB POINT OF CARE TE ST DOCKED DEVICE UNSOLICITED RESULTS Final Result Performing Organization Address [facility] Co de Phone Number [facility]ALTHCARE LAB [address] [place] [address] * [place] Less than 1 Hour Intraoperative (10/17/2024 1:18 PM EDT) Narrative IMAGING - 10/17/2024 2:05 PM EDT Images were obtained for surgical purposes. See Terrell Gautam's surgical note in the patient's chart for the findings. us Terrell Gautam MD IMG FLUOROSCOPY PROCEDURES Fi nal Result Performing Organization Address [facility]/ZIP Co de Phone Number IMAGING * POCT ACT (10/17/2024 12:23 PM EDT) [facility] ACT+ (HIGH RANGE) 211 68 - 600 Seconds 10/29/2024 7:28 AM EDT HEALTHCARE LAB Audio Technician ID Donna Mcmillan 10/29/2024 7:28 AM EDT HEALTHCARE LAB ACT Device ID [id number] 10/29/2024 7:28 AM EDT [facility] Comment 10/29/2024 7:28 [...] RESULTS Final Result Performing Organization Address City/State/[facility] [facility] Co de Phone Number [facility] [address] [place] [address] * (ABNORMAL) Blood gas, arterial (10/17/2024 11:48 [...] EDT us Jenna Lopez [facility] BLOOD ORDERABLES Final Re sult [facility] [address] [place] [address] * POCT ACT (10/17/2024 11:41 AM EDT) ACT+ (HIGH RANGE) 175 68 - 600 Seconds 10/29/2024 7:28 AM EDT [facility] Audio Technician ID Oneyda Alicea 10/29/2024 7:28 AM EDT [facility] ACT Device ID [id number] 10/29/2024 7:28 AM EDT [facility]ALTH[facility]ARE LAB Comment [...] Result Performing Organization Address [facility] Co de Phone Number [facility] [address] LAB [address] [place] [address] * POCT ACT (10/17/2024 11:11 AM EDT) ACT+ (HIGH RANGE) 252 68 - 600 Seconds 10/29/2024 7:28 AM EDT [facility]ALTH[facility]ARE LAB Audio Technician ID Donna Mcmillan 10/29/2024 7:28 AM EDT [facility] ACT Device ID [id number] 10/29/2024 7:28 AM EDT [facility]ALTH[facility]ARE LAB Comment [...] Performing Organization Address City/[facility]/ZIP Co de Phone Number HEALTHCARE LAB [address] LAB 800 [place] [address] * (ABNORMAL) Blood gas, arterial (10/17/2024 10:46 [...] Re sult [facility] [address] [place] [address] * POCT ACT (10/17/2024 10:37 AM EDT) ACT+ (HIGH RANGE) 206 68 - 600 Seconds 10/29/2024 7:28 AM EDT [facility]ALTH[facility]ARE LAB Audio Technician ID Donna Mcmillan 10/29/2024 7:28 AM EDT [facility] ACT Device ID [id number] 10/29/2024 7:28 AM EDT [facility] Comment [...] UNSOLICITED RESULTS Final Result [facility] [address] LAB 800 [place] [address] * Surgical Pathology Exam (10/17/2024 10:27 AM EDT) Case Report Surgical Pathology Case: [id number] Authorizing Provider: Terrell Gautam MD Collected: 10/17/2024 1027 Ordering Location: [facility] OPERATING ROOM Received: 10/17/2024 1325 Pathologist: [...] Kenia Pastor Yola 10/21/2024 10:16 AM EDT [facility] ORDERABLES Gwen l Result Performing Organization Address [facility] Co de Phone Number [facility] [address] [place] [address] * POCT ACT (10/17/2024 10:03 AM EDT) ACT+ (HIGH RANGE) 244 68 - 600 Seconds 10/29/2024 7:28 AM EDT [facility]ALTH[facility]ARE LAB Audio Technician ID Donna Mcmillan 10/29/2024 7:28 AM EDT [facility]ALTH[facility] ACT Device ID [id number] 10/29/2024 7:28 AM EDT [facility] Comment 10/29/2024 7:28 [...] Result Performing Organization Address [facility] Co de Phone Number [facility] [address] LAB [address] [place] [address] * (ABNORMAL) Blood gas, arterial (10/17/2024 9:45 [...] Re sult [facility] [address] [place] [address] * (ABNORMAL) Blood gas, arterial (10/17/2024 8:47 [...] Re sult [facility] [address] [place] [address] * POCT ACT (10/17/2024 8:46 AM EDT) ACT+ (HIGH RANGE) 101 68 - 600 Seconds 10/29/2024 7:28 AM EDT [facility] Audio Technician ID Donna Mcmillan 10/29/2024 7:28 AM EDT [facility] ACT Device ID [id number] 10/29/2024 7:28 AM EDT [facility] Comment 10/29/2024 7:28 [...] RESULTS Final Result [facility] [address] LAB 800 [place] [address] * Type and Screen (10/17/2024 7:19 AM [...] ORDERAB LES Final Result Performing Organization Address City/[facility]/ZIP Co de Phone Number BLOOD BANK [address] [place] [address], * (ABNORMAL) POCT glucose meter (10/17/2024 6:44 AM EDT) [facility] POCT Glucose 178(H) 74 - 99 mg/dL [...] 10/17/2024 6:49 AM EDT [facility] Audio Technician ID Hunter Burroughs 10/18/19 6:49 AM EDT [facility] Device ID [id number] 10/17/2024 6:49 AM EDT [facility] Specimen Type POC Capillary 10/17/2024 6:49 AM EDT [facility]ALTH[facility] Blood Capillary blood specimen / Unknown 10/17/2024 6:44 AM EDT 10/17/2024 6:49 AM EDT us Terrell Gautam MD LAB POINT OF CARE TE ST DOCKED DEVICE UNSOLICITED RESULTS Final Result [facility] [address] [place] [address] documented in this encounter Visit Diagnoses Diagnosis [...] CHRISTIAN) 08 (Given - Provider: Emilia Alonso, CHRISITAN)2001 (Given - Provider: Kassie Mao, CHRISTIAN) 0951 [...] as of this encounter Care Teams Car Dispatcher Relationship Specialty Start Date End Date Asad Victor MD [address] [place] [id number] PCP - General 10/07/22 documented as of this encounter
--- OUTSIDE RECORDS SUMMARY | 2024-11-05 21:45 | XMS_ITS | Encounter Summary ---
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 136 - 145 mmol/L 11/13/2024 7:16 AM EDT [facility] Potassium, Plasma 3.9 3.6 - 4.9 mmol/L 11/13/2024 7:16 AM EDT [facility] Chloride, Plasma 107 97 - 107 mmol/L 11/13/2024 7:16 AM EDT [facility] CO2, Plasma 21(L) 22 - 29 mmol/L 11/13/2024 7:16 AM EDT [facility] Anion Gap 7 6 - 16 mmol/L 11/13/2024 7:16 AM EDT [facility] Total Calcium, Plasma 8.1(L) 8.9 - 10.2 mg/dL 11/13/2024 7:16 AM EDT [facility] eGFRcr 103.2 mL/min/1.7 3m*2 11/13/2024 7:16 AM EDT [facility] Comment:Reported eGFRcr in m L/min/1.73m2 is based the CKD-EPI 2020 equation that does not use a race coefficient. Blood Venous blood specimen / Unknown Venipuncture / Unknown 11/13/2024 6:37 AM EDT 11/13/2024 6:44 AM EDT Nathaly Nowak MD LAB BLOOD ORDERABLES Final Resu lt Performing Organization Address City/[facility]/ZIP Co de Phone Number [facility] [address] [place] [address] * (ABNORMAL) POCT glucose meter (11/12/2024 8:27 [...] for testing. Comment 11/12/2024 8:29 PM EDT [facility] Operating Engineer ID Nelda Gerber 11/13/19 8:29 PM EDT HEALTHCARE LAB Device ID [id number] 11/12/2024 8:29 PM EDT [facility] Specimen Type POC Capillary 11/12/2024 8:29 PM EDT [facility] Blood Capillary blood specimen / Unknown 11/12/2024 8:27 PM EDT 11/12/2024 8:29 PM EDT Nathaly Nowak MD LAB POINT OF CARE TE ST DOCKED DEVICE UNSOLICITED RESULTS Final Result Performing Organization Address City/[facility]/ZIP Co de Phone Number [facility] [address] [place] [address] * (ABNORMAL) POCT glucose meter (11/12/2024 5:08 [...] Comment 11/12/2024 5:10 PM EDT [facility] Operating Engineer ID Wade Feliciano 5:10 PM EDT [facility] Device ID [id number] 11/12/2024 5:10 PM EDT [facility] Specimen Type POC Capillary 11/12/2024 5:10 PM EDT [facility] Blood Capillary blood specimen / Unknown 11/12/2024 5:08 PM EDT 11/12/2024 5:10 PM EDT Nathaly Nowak MD LAB POINT OF CARE TE ST DOCKED DEVICE UNSOLICITED RESULTS Final Result Performing Organization Address City/State/[facility] Co de Phone Number [facility] [address] [place] [address] * (ABNORMAL) POCT glucose meter (11/12/2024 12:36 PM EDT) [facility] POCT Glucose 224(H) 74 - [...] Comment 11/12/2024 12:38 PM EDT [facility] Operating Engineer ID Wade Feliciano Tobias 12:38 PM EDT [facility] Device ID [id number] 11/12/2024 12:38 PM EDT [facility] Specimen Type POC Capillary 11/12/2024 12:38 PM EDT [facility] Blood Capillary blood specimen / Unknown 11/12/2024 12:36 PM EDT 11/12/2024 12:38 PM EDT Nathaly Nowak MD LAB POINT OF CARE TE ST DOCKED DEVICE UNSOLICITED RESULTS Final Result [facility] [address] [place] [address] * Clostridiodes (Clostridium) difficile PCR (11/12/2024 9:50 AM EDT) C difficile PCR toxin B gene DNA Result Not Detected Not Detected 11/12/2024 11:54 AM EDT [facility] Stool Rectum structure / Unknown Non-blood Collection / Unknown 11/12/2024 9:50 AM EDT 11/12/2024 10:04 AM EDT Narrative [facility] - 11/12/2024 11:54 AM [...] Nowak MD LAB MICROBIOLOGY - GENERAL [facility] Final Result [facility] [address] [place] [address] * Comprehensive GI Panel by PCR (11/12/2024 9:50 AM EDT) Campylobacter PCR Result Not Detected Not Detected 11/12/2024 2:47 PM EDT [facility] Plesiomonas shigelloides PCR Result Not Detected Not Detected 11/12/2024 2:47 PM EDT [facility] Salmonella PCR Result Not Detected Not Detected 11/12/2024 2:47 PM EDT [facility] Vibrio species PCR Result Not Detected Not Detected 11/12/2024 2:47 PM EDT [facility] Vibrio cholerae PCR Result Not Detected Not Detected 11/12/2024 2:47 PM EDT [facility] Yersinia enterocolitica PCR Result Not Detected Not Detected 11/12/2024 2:47 PM EDT [facility] Enteroaggregative E. coli (EAEC) PCR Result Not Detected Not Detected 11/12/2024 2:47 PM EDT [facility] Enteropathogenic E. coli (EPEC) PCR Result Not Detected Not Detected 11/12/2024 2:47 PM EDT [facility] Enterotoxigenic E. coli (ETEC) lt/st PCR Result Not Detected Not Detected 11/12/2024 2:47 PM EDT [facility] Shiga-like Toxin-Producing E.coli (STEC) stx1/stx2 PCR Resu Not Detected Not Detected 11/12/2024 2:47 PM EDT [facility] E coli 0157 PCR Result Not Detected Not Detected 11/12/2024 2:47 PM EDT [facility] Shigella/Enteroinvas tam E. coli (EIEC) PCR Result Not Detected Not Detected 11/12/2024 2:47 PM EDT [facility] Cryptosporidium PCR Result Not Detected Not Detected 11/12/2024 2:47 PM EDT [facility] Cyclospora cayetanensis PCR Result Not Detected Not Detected 11/12/2024 2:47 PM EDT [facility] Entamoeba histolytica PCR Result Not Detected Not Detected 11/12/2024 2:47 PM EDT [facility] Giardia duodenalis (aka Giardia lamblia) PCR Result Not Detected Not Detected 11/12/2024 2:47 PM EDT [facility] Adenovirus F 40/41 PCR Result Not Detected Not Detected 11/12/2024 2:47 PM EDT [facility] Astrovirus PCR Result Not Detected Not Detected 11/12/2024 2:47 PM EDT [facility] Norovirus GI/GII PCR Result Not Detected Not Detected 11/12/2024 2:47 PM EDT [facility] Rotavirus A PCR Result Not Detected Not Detected 11/12/2024 2:47 PM EDT [facility] Sapovirus PCR Result Not Detected Not Detected 11/12/2024 2:47 PM EDT [facility] Stool Rectum structure / Unknown Non-blood Collection / Unknown 11/12/2024 9:50 AM EDT 11/12/2024 10:04 AM EDT Narrative [facility] - 11/12/2024 2:47 PM [...] Nathaly Nowak MD LAB MICROBIOLOGY - [facility]AL [facility] Final Result Performing Organization Address City/[facility]/ZIP Co de Phone Number [facility] [address] [place] [address] * C-reactive protein (11/12/2024 9:48 AM EDT) [facility] CRP, Plasma <3.0 <=8.0 mg/L 11/12/2024 10:28 AM EDT [facility] Blood Venous blood specimen / Unknown Venipuncture / Unknown 11/12/2024 9:48 AM EDT 11/12/2024 9:59 AM EDT Narrative [facility] - 11/12/2024 10:28 AM EDT This CRP test is appropriate for assessment of infection, systemic inflammation and/or tissue injury. To assess cardiovascular disease risk order high sensitivity CRP (CRPH). Nathaly Nowak MD LAB BLOOD ORDERABLES Final Resu lt Performing Organization Address [facility]/ZIP Co de Phone Number [facility] [address] [place] [address] * (ABNORMAL) POCT glucose meter (11/12/2024 8:20 AM EDT) Pathologist [facility] POCT Glucose 138(H) 74 - 99 mg/dL 11/12/2024 8:21 AM EDT [facility] Comment:Accuracy of a glucos e [...] Comment 11/12/2024 8:21 AM EDT [facility] Operating Engineer ID Wade Feliciano 8:21 AM EDT [facility] LAB Device ID [id number] 11/12/2024 8:21 AM EDT [facility] Specimen Type POC Capillary 11/12/2024 8:21 AM EDT [facility] Blood Capillary blood specimen / Unknown 11/12/2024 8:20 AM EDT 11/12/2024 8:21 AM EDT us Nathaly Nowak MD LAB POINT OF CARE TE ST DOCKED DEVICE UNSOLICITED RESULTS Final Result Performing Organization Address City/State/[facility] Co de Phone Number [facility] [address] [place] [address] * (ABNORMAL) POCT glucose meter (11/11/2024 8:18 PM EDT) [facility] Signature POCT Glucose 248(H) 74 - [...] Comment 11/11/2024 8:20 PM EDT [facility] Operating Engineer ID Nelda Gerber 11/12/19 8:20 PM EDT [facility] LAB Device ID [id number] 11/11/2024 8:20 PM EDT [facility] Specimen Type POC Capillary 11/11/2024 8:20 PM EDT [facility] Blood Capillary blood specimen / Unknown 11/11/2024 8:18 PM EDT 11/11/2024 8:20 PM EDT us Nathaly Nowak MD LAB POINT OF CARE TE ST DOCKED DEVICE UNSOLICITED RESULTS Final Result [facility] [address] [place] [address] * (ABNORMAL) POCT glucose meter (11/11/2024 5:59 [...] for testing. Comment 11/11/2024 6:01 PM EDT [facility] Operating Engineer ID Wade Feliciano 6:01 PM EDT [facility] Device ID [id number] 11/11/2024 6:01 PM EDT [facility] Specimen Type POC Capillary 11/11/2024 6:01 PM EDT [facility] Blood Capillary blood specimen / Unknown 11/11/2024 5:59 PM EDT 11/11/2024 6:01 PM EDT us Nathaly Nowak MD LAB POINT OF CARE TE ST DOCKED DEVICE UNSOLICITED RESULTS Final Result Performing Organization Address City/[facility]/ZIP Co de Phone Number [facility] [address] [place] [address] * POCT glucose meter (11/11/2024 5:20 PM EDT) Pathologist [facility] POCT Glucose 84 74 - 99 mg/dL [...] 11/11/2024 5:22 PM EDT [facility] Operating Engineer ID Wade Feliciano 5:22 PM EDT [facility] LAB Device ID [id number] 11/11/2024 5:22 PM EDT [facility] Specimen Type POC Capillary 11/11/2024 5:22 PM EDT [facility] Blood Capillary blood specimen / Unknown 11/11/2024 5:20 PM EDT 11/11/2024 5:22 PM EDT us Nathaly Nowak MD LAB POINT OF CARE TE ST DOCKED DEVICE UNSOLICITED RESULTS Final Result [facility] [address] [place] [address] * [place] NEGATIVE PRESSURE WOUND THERAPY DME >50 SQ [...] POCT glucose meter (11/11/2024 12:08 PM EDT) [facility] POCT Glucose 226(H) 74 - 99 [...] Comment 11/11/2024 12:10 PM EDT [facility] Operating Engineer ID Wade Feliciano 12:10 PM EDT [facility] LAB Device ID [id number] 11/11/2024 12:10 PM EDT [facility] Specimen Type POC Capillary 11/11/2024 12:10 PM EDT [facility] Blood Capillary blood specimen / Unknown 11/11/2024 12:08 PM EDT 11/11/2024 12:10 PM EDT Nathaly Nowak MD LAB POINT OF CARE TE ST DOCKED DEVICE UNSOLICITED RESULTS Final Result Performing Organization Address City/[facility] Co de Phone Number [facility] [address] [place] [address] * (ABNORMAL) POCT glucose meter (11/11/2024 9:08 AM EDT) [facility] POCT Glucose 162(H) 74 - 99 [...] Comment 11/11/2024 9:09 AM EDT [facility] Operating Engineer ID Wade Feliciano 9:09 AM EDT [facility] Device ID [id number] 11/11/2024 9:09 AM EDT [facility] Specimen Type POC Capillary 11/11/2024 9:09 AM EDT [facility] Blood Capillary blood specimen / Unknown 11/11/2024 9:08 AM EDT 11/11/2024 9:09 AM EDT us Nathaly Nowak MD LAB POINT OF CARE TE ST DOCKED DEVICE UNSOLICITED RESULTS Final Result [facility] [address] [place] [address] * POCT glucose meter (11/11/2024 8:27 AM EDT) [facility] POCT Glucose 87 74 - 99 mg/dL [...] Comment 11/11/2024 8:28 AM EDT [facility] Operating Engineer ID Wade Feliciano Tobias 8:28 AM EDT [facility] Device ID [id number] 11/11/2024 8:28 AM EDT [facility] Specimen Type POC Capillary 11/11/2024 8:28 AM EDT [facility] Blood Capillary blood specimen / Unknown 11/11/2024 8:27 AM EDT 11/11/2024 8:28 AM EDT us Nathaly Nowak MD LAB POINT OF CARE TE ST DOCKED DEVICE UNSOLICITED RESULTS Final Result Performing Organization Address [facility] de Phone Number [facility] [address] [place] [address] * (ABNORMAL) Basic Metabolic Panel, Plasma (11/11/2024 1:12 AM EDT) [facility] Glucose, Plasma 122(H) 74 - 99 mg/dL 11/11/2024 1:12 AM EDT [facility] BUN, Plasma 10 8 - 23 mg/dL 11/11/2024 1:12 AM EDT [facility] Creatinine, Plasma 0.82 0.70 - 1.20 mg/dL 11/11/2024 1:12 AM EDT [facility] BUN/Creatinine Ratio 12 11/11/2024 1:12 AM EDT [facility] Sodium, Plasma 137 136 - 145 mmol/L 11/11/2024 1:12 AM EDT [facility] Potassium, Plasma 3.9 3.6 - 4.9 mmol/L 11/11/2024 1:12 AM EDT [facility] Chloride, Plasma 110(H) 97 - 107 mmol/L 11/11/2024 1:12 AM EDT [facility] CO2, Plasma 20(L) 22 - 29 mmol/L 11/11/2024 1:12 AM EDT [facility] Anion Gap 7 6 - 16 mmol/L 11/11/2024 1:12 AM EDT [facility] Total Calcium, Plasma 7.6(L) 8.9 - 10.2 mg/dL 11/11/2024 1:12 AM EDT [facility] eGFRcr 97.5 mL/min/1.7 3m*2 11/11/2024 1:12 AM EDT [facility] Comment:Reported eGFRcr in m L/min/1.73m2 is based the CKD-EPI 2020 equation that does not use a race coefficient. Blood Venous blood specimen / Unknown 11/11/2024 12:42 AM EDT us Nathaly Nowak MD LAB BLOOD ORDERABLES Final Resu lt [facility] [address] [place] [address] * (ABNORMAL) CBC W/O Differential (11/11/2024 12:56 AM EDT) WBC Count 11.83(H) 3.70 - 10.30 10*3/uL LAB HEMATOLOGY METHOD 11/11/2024 12:56 AM EDT [facility] RBC Count 2.97(L) 4.60 - 6.10 10*6/uL LAB HEMATOLOGY METHOD 11/11/2024 12:56 AM EDT [facility] HGB 8.9(L) 13.7 - 17.5 g/dL LAB HEMATOLOGY METHOD 11/11/2024 12:56 AM EDT [facility] HCT 27.2(L) 40.0 - 51.0 % LAB HEMATOLOGY METHOD 11/11/2024 12:56 AM EDT [facility] Platelet Count 444(H) 155 - 369 10*3/uL LAB HEMATOLOGY METHOD 11/11/2024 12:56 AM EDT [facility] MCV 92 79 - 98 fL LAB HEMATOLOGY METHOD 11/11/2024 12:56 AM EDT [facility] MCH 30.0 26.0 - 32.0 pg LAB HEMATOLOGY METHOD 11/11/2024 12:56 AM EDT [facility] MCHC 32.7 30.7 - 35.5 g/dL LAB HEMATOLOGY METHOD 11/11/2024 12:56 AM EDT [facility] RDW 13.3 11.5 - 14.5 % LAB HEMATOLOGY METHOD 11/11/2024 12:56 AM EDT [facility] MPV 9.0 8.8 - 12.5 fL LAB HEMATOLOGY METHOD 11/11/2024 12:56 AM EDT [facility] nRBC 0.0 <=0.0 per 100 WBCs LAB HEMATOLOGY METHOD 11/11/2024 12:56 AM EDT [facility] Blood Venous blood specimen / Unknown 11/11/2024 12:42 AM EDT us Nathaly Nowak MD LAB BLOOD ORDERABLES Final Resu lt [facility] [address] [place] [address] * (ABNORMAL) POCT glucose meter (11/10/2024 8:25 [...] Comment 11/10/2024 8:28 PM EDT [facility] Operating Engineer ID Nelda Gerber 11/11/19 8:28 PM EDT [facility] Device ID [id number] 11/10/2024 8:28 PM EDT [facility] Specimen Type POC Capillary 11/10/2024 8:28 PM EDT [facility] Blood Capillary blood specimen / Unknown 11/10/2024 8:25 PM EDT 11/10/2024 8:28 PM EDT Nathaly Nowak MD LAB POINT OF CARE TE ST DOCKED DEVICE UNSOLICITED RESULTS Final Result [facility] [address] [place] [address] * (ABNORMAL) POCT glucose meter (11/10/2024 4:45 [...] Comment 11/10/2024 4:47 PM EDT [facility] Operating Engineer ID Esperanza Parks 11/10/2024 4:47 PM EDT [facility] Device ID [id number] 11/10/2024 4:47 PM EDT [facility] Specimen Type POC Capillary 11/10/2024 4:47 PM EDT [facility] Blood Capillary blood specimen / Unknown 11/10/2024 4:45 PM EDT 11/10/2024 4:47 PM EDT Nathaly Nowak MD LAB POINT OF CARE TE ST DOCKED DEVICE UNSOLICITED RESULTS Final Result [facility] [address] [place] [address] * (ABNORMAL) POCT glucose meter (11/10/2024 12:13 [...] Comment 11/10/2024 12:14 PM EDT [facility] Operating Engineer ID Esperanza Parks 11/10/2024 12:14 PM EDT [facility] LAB Device ID [id number] 11/10/2024 12:14 PM EDT [facility] Specimen Type POC Capillary 11/10/2024 12:14 PM EDT [facility] Blood Capillary blood specimen / Unknown 11/10/2024 12:13 PM EDT 11/10/2024 12:14 PM EDT us Nathaly Nowak MD LAB POINT OF CARE TE ST DOCKED DEVICE UNSOLICITED RESULTS Final Result Performing Organization Address [facility] Co de Phone Number [facility] [address] [place] [address] * Vancomycin, Peak, Plasma Please draw ~2 hours after 0800 dose of vancomycin finishes infusing. Consider obtaining level via peripheral stick. If peripheral stick is not feasible, please ensure that line is flushed well prior to drawing level. Than... (11/10/2024 10:56 AM EDT) Vancomycin, Peak, Plasma 23.8 20.0 - 40.0 ug/mL 11/10/2024 11:25 AM EDT [facility] Blood Venous blood specimen / Unknown Venipuncture / Unknown 11/10/2024 10:56 AM EDT 11/10/2024 11:00 AM EDT Narrative [facility] - 11/10/2024 11:25 AM EDT Therapeutic Peak level: 20-40ug/mL Supra-therapeutic Peak level: >40 ug/mL us Abigail Seay MD LAB BLOOD ORDERABLES Final Res ult Performing Organization Address [facility]/ZIP Co de Phone Number [facility] [address] [place] [address] * (ABNORMAL) POCT glucose meter (11/10/2024 8:03 [...] Comment 11/10/2024 8:04 AM EDT [facility] Operating Engineer ID Esperanza Parks 11/10/2024 8:04 AM EDT [facility]ALTH[facility] LAB Device ID [id number] 11/10/2024 8:04 AM EDT [facility] Specimen Type POC Capillary 11/10/2024 8:04 AM EDT [facility] Blood Capillary blood specimen / Unknown 11/10/2024 8:03 AM EDT 11/10/2024 8:04 AM EDT us Nathaly Nowak MD LAB POINT OF CARE TE ST DOCKED DEVICE UNSOLICITED RESULTS Final Result [facility] [address] [place] [id number] * Vancomycin, Trough, Plasma Please draw ~30 minutes prior to dose due at 0800 on 11/10. Please do NOThold dose awaiting level to return. Consider obtaining level via peripheral stick. If peripheral stick is not feasible, please ensure that line is... (11/10/2024 7:27 AM EDT) [facility] Vancomycin, Trough, Plasma 16.2 10.0 - 20.0 ug/mL 11/10/2024 8:24 AM EDT [facility] Blood Venous blood specimen / Unknown Venipuncture / Unknown 11/10/2024 7:27 AM EDT 11/10/2024 7:51 AM EDT Narrative [facility] - 11/10/2024 8:24 AM EDT Therapeutic Trough level: 10-20ug/mL Supra-therapeutic Trough level: >20 ug/mL us Abigail Seay MD LAB BLOOD ORDERABLES Final Res ult [facility] [address] [place] [address] * (ABNORMAL) CBC and Differential (11/10/2024 12:31 AM EDT) WBC Count 10.80(H) 3.70 - 10.30 10*3/uL LAB HEMATOLOGY METHOD 11/10/2024 12:53 AM EDT [facility] RBC Count 3.06(L) 4.60 - 6.10 10*6/uL LAB HEMATOLOGY METHOD 11/10/2024 12:53 AM EDT [facility] HGB 9.1(L) 13.7 - 17.5 g/dL LAB HEMATOLOGY METHOD 11/10/2024 12:53 AM EDT [facility] HCT 28.0(L) 40.0 - 51.0 % LAB HEMATOLOGY METHOD 11/10/2024 12:53 AM EDT [facility] Platelet Count 501(H) 155 - 369 10*3/uL LAB HEMATOLOGY METHOD 11/10/2024 12:53 AM EDT [facility] MCV 92 79 - 98 fL LAB HEMATOLOGY METHOD 11/10/2024 12:53 AM EDT [facility] MCH 29.7 26.0 - 32.0 pg LAB HEMATOLOGY METHOD 11/10/2024 12:53 AM EDT [facility] MCHC 32.5 30.7 - 35.5 g/dL LAB HEMATOLOGY METHOD 11/10/2024 12:53 AM EDT [facility] RDW 13.2 11.5 - 14.5 % LAB HEMATOLOGY METHOD 11/10/2024 12:53 AM EDT [facility] MPV 8.8 8.8 - 12.5 fL LAB HEMATOLOGY METHOD 11/10/2024 12:53 AM EDT [facility] nRBC 0.0 <=0.0 per 100 WBCs LAB HEMATOLOGY METHOD 11/10/2024 12:53 AM EDT [facility] Differential Type Automated LAB HEMATOLOGY METHOD 11/10/2024 12:53 AM EDT [facility] Neutrophils % 77 % LAB HEMATOLOGY METHOD 11/10/2024 12:53 AM EDT [facility] Lymphocytes % 13 % LAB HEMATOLOGY METHOD 11/10/2024 12:53 AM EDT [facility] Monocytes % 8 % LAB HEMATOLOGY METHOD 11/10/2024 12:53 AM EDT [facility] Eosinophils % 1 % LAB HEMATOLOGY METHOD 11/10/2024 12:53 AM EDT [facility] Basophils % 0 % LAB HEMATOLOGY METHOD 11/10/2024 12:53 AM EDT [facility] Immature Granulocytes % 1 % LAB HEMATOLOGY METHOD 11/10/2024 12:53 AM EDT [facility] Neutrophils Absolute 8.32(H) 1.60 - 6.10 10*3/uL LAB HEMATOLOGY METHOD 11/10/2024 12:53 AM EDT [facility] Lymphocytes Absolute 1.40 1.20 - 3.90 10*3/uL LAB HEMATOLOGY METHOD 11/10/2024 12:53 AM EDT [facility] Monocytes Absolute 0.89 0.30 - 0.90 10*3/uL LAB HEMATOLOGY METHOD 11/10/2024 12:53 AM EDT [facility] Eosinophils Absolute 0.09 0.00 - 0.50 10*3/uL LAB HEMATOLOGY METHOD 11/10/2024 12:53 AM EDT [facility] Basophils Absolute 0.04 0.00 - 0.10 10*3/uL LAB HEMATOLOGY METHOD 11/10/2024 12:53 AM EDT [facility] Immature Granulocytes Absolute 0.06 0.00 - 0.06 10*3/uL LAB HEMATOLOGY METHOD 11/10/2024 12:53 AM EDT [facility] Blood Venous blood specimen / Unknown Venipuncture / Unknown 11/10/2024 12:31 AM EDT 11/10/2024 12:37 AM EDT Narrative [facility] - 11/10/2024 12:53 AM EDT Therapeutic decision making should be based on absolute values, rather than percentages. us Nathaly Nowak MD LAB BLOOD ORDERABLES Final Resu lt [facility] [address] [place] [address] * (ABNORMAL) Comprehensive Metabolic Panel, Plasma (11/10/2024 12:31 AM EDT) Glucose, Plasma 185(H) 74 - 99 mg/dL 11/10/2024 1:05 AM EDT [facility] BUN, Plasma 9 8 - 23 mg/dL 11/10/2024 1:05 AM EDT [facility] Creatinine, Plasma 0.72 0.70 - 1.20 mg/dL 11/10/2024 1:05 AM EDT [facility] BUN/Creatinine Ratio 13 11/10/2024 1:05 AM EDT [facility] Sodium, Plasma 135(L) 136 - 145 mmol/L 11/10/2024 1:05 AM EDT [facility] Potassium, Plasma 4.0 3.6 - 4.9 mmol/L 11/10/2024 1:05 AM EDT [facility] Chloride, Plasma 106 97 - 107 mmol/L 11/10/2024 1:05 AM EDT [facility] CO2, Plasma 19(L) 22 - 29 mmol/L 11/10/2024 1:05 AM EDT [facility] Anion Gap 10 6 - 16 mmol/L 11/10/2024 1:05 AM EDT [facility] Total Calcium, Plasma 7.8(L) 8.9 - 10.2 mg/dL 11/10/2024 1:05 AM EDT [facility] Total Protein 5.6(L) 6.3 - 7.9 g/dL 11/10/2024 1:05 AM EDT [facility] Albumin, Plasma 3.1(L) 3.5 - 5.2 g/dL 11/10/2024 1:05 AM EDT [facility] AST, Plasma 33 10 - 50 U/L 11/10/2024 1:05 AM EDT [facility] ALT, Plasma 25 10 - 50 U/L 11/10/2024 1:05 AM EDT [facility] Alkaline Phosphatase, Plasma 108 40 - 115 U/L 11/10/2024 1:05 AM EDT [facility] Total Bilirubin, Plasma <0.2(L) 0.2 - 1.1 mg/dL 11/10/2024 1:05 AM EDT [facility] eGFRcr 101.4 mL/min/1.7 3m*2 11/10/2024 1:05 AM EDT [facility] Comment:Reported eGFRcr in m L/min/1.73m2 is based the CKD-EPI 2020 equation that does not use a race coefficient. Blood Venous blood specimen / Unknown Venipuncture / Unknown 11/10/2024 12:31 AM EDT 11/10/2024 12:37 AM EDT us Nathaly Nowak MD LAB BLOOD ORDERABLES Final Resu lt Performing Organization Address City/[facility]/ZIP Co de Phone Number [facility] [address] [place] [address] * (ABNORMAL) POCT glucose meter (11/09/2024 8:04 [...] Comment 11/09/2024 8:06 PM EDT [facility] Operating Engineer ID Maximiliano Hansen II 11/09/2024 8:06 PM EDT [facility] Device ID [id number] 11/09/2024 8:06 PM EDT [facility] Specimen Type POC Capillary 11/09/2024 8:06 PM EDT [facility] Blood Capillary blood specimen / Unknown 11/09/2024 8:04 PM EDT 11/09/2024 8:06 PM EDT us Nathaly Nowak MD LAB POINT OF CARE TE ST DOCKED DEVICE UNSOLICITED RESULTS Final Result Performing Organization Address City/[facility]/ZIP Co de Phone Number [facility] [address] [place] [address] * (ABNORMAL) POCT glucose meter (11/09/2024 4:36 [...] Comment 11/09/2024 4:38 PM EDT [facility] Operating Engineer ID Kristian Sosa 11/09/2024 4:38 PM EDT [facility] Device ID [id number] 11/09/2024 4:38 PM EDT [facility] Specimen Type POC Capillary 11/09/2024 4:38 PM EDT [facility] Blood Capillary blood specimen / Unknown 11/09/2024 4:36 PM EDT 11/09/2024 4:38 PM EDT us Nathaly Nowak MD LAB POINT OF CARE TE ST DOCKED DEVICE UNSOLICITED RESULTS Final Result Performing Organization Address City/State/[facility] Co de Phone Number [facility] [address] [place] [address] * PICC SINGLE LUMEN ([employer] LINK) (11/09/2024 1:11 PM EDT) Narrative Estefani Barraza RN - 11/09/2024 1:11 PM EDT Estefani Barraza RN 11/09/2024 1:12 PM Insert PICC line Date/Time: 11/09/2024 1:11 PM Performed by: Estefani Barraza RN Authorized by: Nathaly Nowak MD [place] Protocol: Verbal consent obtained?: Yes Written consent [...] selection rationale: Left pacemaker Catheter Lot #: [id number] 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[employer] Catheter placed: Single lumen Catheter size: 4 Fr Catheter trimmed length: 42 Catheter threaded length: 42 Vein placed in: SVC Catheter cm indwellin Catheter cm outside: 0 Placement confirmed by: [employer]ist 3CG technology Pre-procedure: Landmarks identified Ultrasound guidance: [...] 11/09/2024 11:51 AM EDT [facility] Operating Engineer ID Kristian Sosa 11/09/2024 11:51 AM EDT [facility] LAB Device ID [id number] 11/09/2024 11:51 AM EDT [facility] Specimen Type POC Capillary 11/09/2024 11:51 AM EDT [facility] Blood Capillary blood specimen / Unknown 11/09/2024 11:50 AM EDT 11/09/2024 11:51 AM EDT Nathaly Nowak MD LAB POINT OF CARE TE ST DOCKED DEVICE UNSOLICITED RESULTS Final Result Performing Organization Address [facility] de Phone Number [facility] [address] [place] [address] * (ABNORMAL) POCT glucose meter (11/09/2024 8:14 AM EDT) [facility] POCT Glucose 153(H) 74 - [...] Comment 11/09/2024 8:15 AM EDT [facility] Operating Engineer ID Kristian Sosa 11/09/2024 8:15 AM EDT [facility] Device ID [id number] 11/09/2024 8:15 AM EDT [facility] Specimen Type POC Capillary 11/09/2024 8:15 AM EDT [facility] Blood Capillary blood specimen / Unknown 11/09/2024 8:14 AM EDT 11/09/2024 8:15 AM EDT Nathaly Nowak MD LAB POINT OF CARE TE ST DOCKED DEVICE UNSOLICITED RESULTS Final Result Performing Organization Address City/[facility] Co de Phone Number [facility] [address] [place] [address] * (ABNORMAL) CBC and Differential (11/09/2024 4:15 AM EDT) [facility] WBC Count 10.27 3.70 - 10.30 10*3/uL LAB HEMATOLOGY METHOD 11/09/2024 4:26 AM EDT [facility] RBC Count 3.14(L) 4.60 - 6.10 10*6/uL LAB HEMATOLOGY METHOD 11/09/2024 4:26 AM EDT [facility] HGB 9.2(L) 13.7 - 17.5 g/dL LAB HEMATOLOGY METHOD 11/09/2024 4:26 AM EDT [facility] HCT 28.3(L) 40.0 - 51.0 % LAB HEMATOLOGY METHOD 11/09/2024 4:26 AM EDT [facility] Platelet Count 468(H) 155 - 369 10*3/uL LAB HEMATOLOGY METHOD 11/09/2024 4:26 AM EDT [facility] MCV 90 79 - 98 fL LAB HEMATOLOGY METHOD 11/09/2024 4:26 AM EDT [facility] MCH 29.3 26.0 - 32.0 pg LAB HEMATOLOGY METHOD 11/09/2024 4:26 AM EDT [facility] MCHC 32.5 30.7 - 35.5 g/dL LAB HEMATOLOGY METHOD 11/09/2024 4:26 AM EDT [facility] RDW 13.1 11.5 - 14.5 % LAB HEMATOLOGY METHOD 11/09/2024 4:26 AM EDT [facility] MPV 8.7(L) 8.8 - 12.5 fL LAB HEMATOLOGY METHOD 11/09/2024 4:26 AM EDT [facility] nRBC 0.0 <=0.0 per 100 WBCs LAB HEMATOLOGY METHOD 11/09/2024 4:26 AM EDT [facility] Differential Type Automated LAB HEMATOLOGY METHOD 11/09/2024 4:26 AM EDT [facility] Neutrophils % 77 % LAB HEMATOLOGY METHOD 11/09/2024 4:26 AM EDT [facility] Lymphocytes % 13 % LAB HEMATOLOGY METHOD 11/09/2024 4:26 AM EDT [facility] Monocytes % 8 % LAB HEMATOLOGY METHOD 11/09/2024 4:26 AM EDT [facility] Eosinophils % 1 % LAB HEMATOLOGY METHOD 11/09/2024 4:26 AM EDT [facility] Basophils % 0 % LAB HEMATOLOGY METHOD 11/09/2024 4:26 AM EDT [facility] Immature Granulocytes % 1 % LAB HEMATOLOGY METHOD 11/09/2024 4:26 AM EDT [facility] Neutrophils Absolute 7.97(H) 1.60 - 6.10 10*3/uL LAB HEMATOLOGY METHOD 11/09/2024 4:26 AM EDT [facility] Lymphocytes Absolute 1.32 1.20 - 3.90 10*3/uL LAB HEMATOLOGY METHOD 11/09/2024 4:26 AM EDT [facility] Monocytes Absolute 0.83 0.30 - 0.90 10*3/uL LAB HEMATOLOGY METHOD 11/09/2024 4:26 AM EDT [facility] Eosinophils Absolute 0.07 0.00 - 0.50 10*3/uL LAB HEMATOLOGY METHOD 11/09/2024 4:26 AM EDT [facility] Basophils Absolute 0.03 0.00 - 0.10 10*3/uL LAB HEMATOLOGY METHOD 11/09/2024 4:26 AM EDT [facility] Immature Granulocytes Absolute 0.05 0.00 - 0.06 10*3/uL LAB HEMATOLOGY METHOD 11/09/2024 4:26 AM EDT [facility] Blood Venous blood specimen / Unknown Venipuncture / Unknown 11/09/2024 4:15 AM EDT 11/09/2024 4:18 AM EDT Narrative [facility] - 11/09/2024 4:26 AM EDT Therapeutic decision making should be based on absolute values, rather than percentages. us Nathaly Nowak MD LAB BLOOD ORDERABLES Final Resu lt [facility] [address] [place] [address] * (ABNORMAL) Comprehensive Metabolic Panel, Plasma (11/09/2024 4:15 AM EDT) Glucose, Plasma 171(H) 74 - 99 mg/dL 11/09/2024 4:47 AM EDT [facility] BUN, Plasma 9 8 - 23 mg/dL 11/09/2024 4:47 AM EDT [facility] Creatinine, Plasma 0.67(L) 0.70 - 1.20 mg/dL 11/09/2024 4:47 AM EDT [facility] BUN/Creatinine Ratio 13 11/09/2024 4:47 AM EDT [facility] Sodium, Plasma 134(L) 136 - 145 mmol/L 11/09/2024 4:47 AM EDT [facility] Potassium, Plasma 4.1 3.6 - 4.9 mmol/L 11/09/2024 4:47 AM EDT [facility] Chloride, Plasma 104 97 - 107 mmol/L 11/09/2024 4:47 AM EDT [facility] CO2, Plasma 21(L) 22 - 29 mmol/L 11/09/2024 4:47 AM EDT [facility] Anion Gap 9 6 - 16 mmol/L 11/09/2024 4:47 AM EDT [facility] Total Calcium, Plasma 8.4(L) 8.9 - 10.2 mg/dL 11/09/2024 4:47 AM EDT [facility] Total Protein 5.8(L) 6.3 - 7.9 g/dL 11/09/2024 4:47 AM EDT [facility] Albumin, Plasma 3.2(L) 3.5 - 5.2 g/dL 11/09/2024 4:47 AM EDT [facility] AST, Plasma 18 10 - 50 U/L 11/09/2024 4:47 AM EDT [facility] ALT, Plasma 17 10 - 50 U/L 11/09/2024 4:47 AM EDT [facility] Alkaline Phosphatase, Plasma 110 40 - 115 U/L 11/09/2024 4:47 AM EDT [facility] Total Bilirubin, Plasma <0.2(L) 0.2 - 1.1 mg/dL 11/09/2024 4:47 AM EDT [facility] eGFRcr 103.6 mL/min/1.7 3m*2 11/09/2024 4:47 AM EDT [facility] Comment:Reported eGFRcr in m L/min/1.73m2 is based the CKD-EPI 2020 equation that does not use a race coefficient. Blood Venous blood specimen / Unknown Venipuncture / Unknown 11/09/2024 4:15 AM EDT 11/09/2024 4:18 AM EDT us Nathaly Nowak MD LAB BLOOD ORDERABLES Final Resu lt [facility] [address] [place] [address] * (ABNORMAL) POCT glucose meter (11/09/2024 3:30 AM EDT) [facility] POCT Glucose 160(H) 74 - 99 mg/dL [...] Comment 11/09/2024 3:31 AM EDT [facility] Operating Engineer ID Maximiliano Hansen II 11/09/2024 3:31 AM EDT [id number] [facility] Device ID [id number] 11/09/2024 3:31 AM EDT [facility] Specimen Type POC Capillary 11/09/2024 3:31 AM EDT [facility] Blood Capillary blood specimen / Unknown 11/09/2024 3:30 AM EDT 11/09/2024 3:31 AM EDT Nathaly Nowak MD LAB POINT OF CARE TE ST DOCKED DEVICE UNSOLICITED RESULTS Final Result [facility] [address] [place] [address] * (ABNORMAL) POCT glucose meter (11/08/2024 7:21 PM EDT) [facility] POCT Glucose 292(H) 74 - 99 mg/dL [...] 11/08/2024 7:22 PM EDT [facility] Operating Engineer ID Maximiliano Hansen II 11/08/2024 7:22 PM EDT [facility] Device ID [id number] 11/08/2024 7:22 PM EDT [facility] Specimen Type POC Capillary 11/08/2024 7:22 PM EDT [facility] Blood Capillary blood specimen / Unknown 11/08/2024 7:21 PM EDT 11/08/2024 7:22 PM EDT Nathaly Nowak MD LAB POINT OF CARE TE ST DOCKED DEVICE UNSOLICITED RESULTS Final Result Performing Organization Address City/[facility]/ZIP Co de Phone Number [facility] [address] [place] [address] * (ABNORMAL) POCT glucose meter (11/08/2024 5:12 [...] Comment 11/08/2024 5:14 PM EDT [facility] Operating Engineer ID Estefani Sheth 11/08/2024 5:14 PM EDT [facility] Device ID [id number] 11/08/2024 5:14 PM EDT [facility] Specimen Type POC Capillary 11/08/2024 5:14 PM EDT [facility] Blood Capillary blood specimen / Unknown 11/08/2024 5:12 PM EDT 11/08/2024 5:14 PM EDT us Nathaly Nowak MD LAB POINT OF CARE TE ST DOCKED DEVICE UNSOLICITED RESULTS Final Result Performing Organization Address City/[facility]/ZIP Co de Phone Number [facility] [address] [place] [address] * (ABNORMAL) POCT glucose meter (11/08/2024 12:03 [...] Comment 11/08/2024 12:05 PM EDT [facility] Operating Engineer ID Estefani Sheth 11/08/2024 12:05 PM EDT [facility] Device ID [id number] 11/08/2024 12:05 PM EDT [facility] Specimen Type POC Capillary 11/08/2024 12:05 PM EDT [facility] Blood Capillary blood specimen / Unknown 11/08/2024 12:03 PM EDT 11/08/2024 12:05 PM EDT us Nathaly Nowak MD LAB POINT OF CARE TE ST DOCKED DEVICE UNSOLICITED RESULTS Final Result Performing Organization Address [facility] Co de Phone Number [facility] [address] [place] [phone] * Vancomycin, Peak, Plasma Please draw ~2 hours after 11/08 0600 dose of vancomycin finishes infusing.Consider obtaining level via peripheral stick. If peripheral stick is not feasible, please ensure that line is flushed well prior to drawing level.... (11/08/2024 9:24 AM EDT) Vancomycin, Peak, Plasma 29.1 20.0 - 40.0 ug/mL 11/08/2024 10:31 AM EDT [facility] Blood Venous blood specimen / Unknown Venipuncture / Unknown 11/08/2024 9:24 AM EDT 11/08/2024 9:47 AM EDT Narrative [facility] - 11/08/2024 10:31 AM EDT Therapeutic Peak level: 20-40ug/mL Supra-therapeutic Peak level: >40 ug/mL us Nathaly Nowak MD LAB BLOOD ORDERABLES Final Resu lt [facility] [address] [place] [address] * (ABNORMAL) POCT glucose meter (11/08/2024 8:00 AM EDT) [facility] POCT Glucose 150(H) 74 - [...] Comment 11/08/2024 8:01 AM EDT [facility] Operating Engineer ID Estefani Sheth 11/08/2024 8:01 AM EDT [facility] LAB Device ID [id number] 11/08/2024 8:01 AM EDT [facility] Specimen Type POC Capillary 11/08/2024 8:01 AM EDT [facility] Blood Capillary blood specimen / Unknown 11/08/2024 8:00 AM EDT 11/08/2024 8:01 AM EDT Nathaly Nowak MD LAB POINT OF CARE TE ST DOCKED DEVICE UNSOLICITED RESULTS Final Result [facility] [address] [place] [address] * (ABNORMAL) CBC and Differential (11/08/2024 4:39 AM EDT) [facility] WBC Count 9.18 3.70 - 10.30 10*3/uL LAB HEMATOLOGY METHOD 11/08/2024 4:58 AM EDT [facility] RBC Count 3.11(L) 4.60 - 6.10 10*6/uL LAB HEMATOLOGY METHOD 11/08/2024 4:58 AM EDT [facility] HGB 9.2(L) 13.7 - 17.5 g/dL LAB HEMATOLOGY METHOD 11/08/2024 4:58 AM EDT [facility] HCT 28.9(L) 40.0 - 51.0 % LAB HEMATOLOGY METHOD 11/08/2024 4:58 AM EDT [facility] Platelet Count 485(H) 155 - 369 10*3/uL LAB HEMATOLOGY METHOD 11/08/2024 4:58 AM EDT [facility] MCV 93 79 - 98 fL LAB HEMATOLOGY METHOD 11/08/2024 4:58 AM EDT [facility] MCH 29.6 26.0 - 32.0 pg LAB HEMATOLOGY METHOD 11/08/2024 4:58 AM EDT [facility] MCHC 31.8 30.7 - 35.5 g/dL LAB HEMATOLOGY METHOD 11/08/2024 4:58 AM EDT [facility] RDW 13.0 11.5 - 14.5 % LAB HEMATOLOGY METHOD 11/08/2024 4:58 AM EDT [facility] MPV 8.8 8.8 - 12.5 fL LAB HEMATOLOGY METHOD 11/08/2024 4:58 AM EDT [facility] nRBC 0.0 <=0.0 per 100 WBCs LAB HEMATOLOGY METHOD 11/08/2024 4:58 AM EDT [facility] Differential Type Automated LAB HEMATOLOGY METHOD 11/08/2024 4:58 AM EDT [facility] Neutrophils % 69 % LAB HEMATOLOGY METHOD 11/08/2024 4:58 AM EDT [facility] Lymphocytes % 17 % LAB HEMATOLOGY METHOD 11/08/2024 4:58 AM EDT [facility] Monocytes % 10 % LAB HEMATOLOGY METHOD 11/08/2024 4:58 AM EDT [facility] Eosinophils % 2 % LAB HEMATOLOGY METHOD 11/08/2024 4:58 AM EDT [facility] Basophils % 1 % LAB HEMATOLOGY METHOD 11/08/2024 4:58 AM EDT [facility] Immature Granulocytes % 1 % LAB HEMATOLOGY METHOD 11/08/2024 4:58 AM EDT [facility] Neutrophils Absolute 6.40(H) 1.60 - 6.10 10*3/uL LAB HEMATOLOGY METHOD 11/08/2024 4:58 AM EDT [facility] Lymphocytes Absolute 1.59 1.20 - 3.90 10*3/uL LAB HEMATOLOGY METHOD 11/08/2024 4:58 AM EDT [facility] Monocytes Absolute 0.87 0.30 - 0.90 10*3/uL LAB HEMATOLOGY METHOD 11/08/2024 4:58 AM EDT [facility] Eosinophils Absolute 0.22 0.00 - 0.50 10*3/uL LAB HEMATOLOGY METHOD 11/08/2024 4:58 AM EDT [facility] Basophils Absolute 0.05 0.00 - 0.10 10*3/uL LAB HEMATOLOGY METHOD 11/08/2024 4:58 AM EDT [facility] Immature Granulocytes Absolute 0.05 0.00 - 0.06 10*3/uL LAB HEMATOLOGY METHOD 11/08/2024 4:58 AM EDT [facility] Blood Venous blood specimen / Unknown Venipuncture / Unknown 11/08/2024 4:39 AM EDT 11/08/2024 4:49 AM EDT Narrative [facility] - 11/08/2024 4:58 AM EDT Therapeutic decision making should be based on absolute values, rather than percentages. us Nathaly Nowak MD LAB BLOOD ORDERABLES Final Resu lt [facility] [address] [place] [address] * (ABNORMAL) Comprehensive Metabolic Panel, Plasma (11/08/2024 4:39 AM EDT) Glucose, Plasma 255(H) 74 - 99 mg/dL 11/08/2024 5:20 AM EDT [facility] BUN, Plasma 10 8 - 23 mg/dL 11/08/2024 5:20 AM EDT [facility] Creatinine, Plasma 0.75 0.70 - 1.20 mg/dL 11/08/2024 5:20 AM EDT [facility] BUN/Creatinine Ratio 13 11/08/2024 5:20 AM EDT [facility] Sodium, Plasma 133(L) 136 - 145 mmol/L 11/08/2024 5:20 AM EDT [facility] Potassium, Plasma 5.2(H) 3.6 - 4.9 mmol/L 11/08/2024 5:20 AM EDT [facility] Chloride, Plasma 105 97 - 107 mmol/L 11/08/2024 5:20 AM EDT [facility] CO2, Plasma 20(L) 22 - 29 mmol/L 11/08/2024 5:20 AM EDT [facility] Anion Gap 8 6 - 16 mmol/L 11/08/2024 5:20 AM EDT [facility] Total Calcium, Plasma 7.7(L) 8.9 - 10.2 mg/dL 11/08/2024 5:20 AM EDT [facility] Total Protein 5.6(L) 6.3 - 7.9 g/dL 11/08/2024 5:20 AM EDT [facility] Albumin, Plasma 2.8(L) 3.5 - 5.2 g/dL 11/08/2024 5:20 AM EDT [facility] AST, Plasma 20 10 - 50 U/L 11/08/2024 5:20 AM EDT [facility] Comment:Hemolyzed, result ma y be falsely increased. ALT, Plasma 14 10 - 50 U/L 11/08/2024 5:20 AM EDT [facility] Alkaline Phosphatase, Plasma 119(H) 40 - 115 U/L 11/08/2024 5:20 AM EDT [facility] Total Bilirubin, Plasma <0.2(L) 0.2 - 1.1 mg/dL 11/08/2024 5:20 AM EDT [facility] eGFRcr 100.1 mL/min/1.7 3m*2 11/08/2024 5:20 AM EDT [facility] Comment:Reported eGFRcr in m L/min/1.73m2 is based the CKD-EPI 2020 equation that does not use a race coefficient. Blood Venous blood specimen / Unknown Venipuncture / Unknown 11/08/2024 4:39 AM EDT 11/08/2024 4:43 AM EDT us Nathaly Nowak MD LAB BLOOD ORDERABLES Final Resu lt [facility] [address] [place] [address] * Vancomycin, Trough, Plasma Please draw ~30 minutes prior to dose due at 0600 on 11/08. Please do NOThold dose awaiting level to return. Consider obtaining level via peripheral stick. If peripheral stick is not feasible, please ensure that line is... (11/08/2024 4:39 AM EDT) [facility] Vancomycin, Trough, Plasma 18.7 10.0 - 20.0 ug/mL 11/08/2024 5:22 AM EDT [facility] Blood Venous blood specimen / Unknown Venipuncture / Unknown 11/08/2024 4:39 AM EDT 11/08/2024 4:43 AM EDT Narrative [facility] - 11/08/2024 5:22 AM EDT Therapeutic Trough level: 10-20ug/mL Supra-therapeutic Trough level: >20 ug/mL us Nathaly Nowak MD LAB BLOOD ORDERABLES Final Resu lt [facility] [address] [place] [address] * (ABNORMAL) POCT glucose meter (11/07/2024 7:26 PM EDT) [facility] POCT Glucose 172(H) 74 - [...] Comment 11/07/2024 7:28 PM EDT [facility] LAB Operating Engineer ID Maximiliano Hansen II 11/07/2024 7:28 PM EDT [facility] LAB Device ID [id number] 11/07/2024 7:28 PM EDT HEALTHCARE LAB Specimen Type POC Capillary 11/07/2024 7:28 PM EDT HEALTH[facility]ARE LAB Blood Capillary blood specimen / Unknown 11/07/2024 7:26 PM EDT 11/07/2024 7:28 PM EDT us Nathaly Nowak MD LAB POINT OF CARE TE ST DOCKED DEVICE UNSOLICITED RESULTS Final Result Performing Organization Address City/[facility] Co de Phone Number [facility] [address] [place] [address] * (ABNORMAL) POCT glucose meter (11/07/2024 5:51 PM EDT) Pathologist [facility] POCT Glucose 183(H) 74 - 99 mg/dL [...] Comment 11/07/2024 5:52 PM EDT HEALTHCARE LAB Operating Engineer ID Ravinder Brigitte 11/07/2024 5:52 PM EDT HEALTHCARE LAB Device ID [id number] 11/07/2024 5:52 PM EDT HEALTHCARE LAB Specimen Type POC Capillary 11/07/2024 5:52 PM EDT [facility] Blood Capillary blood specimen / Unknown 11/07/2024 5:51 PM EDT 11/07/2024 5:52 PM EDT Nathaly Nowak MD LAB POINT OF CARE TE ST DOCKED DEVICE UNSOLICITED RESULTS Final Result Performing Organization Address [facility] Co de Phone Number [facility] [address] [place] [address] * (ABNORMAL) POCT glucose meter (11/07/2024 4:47 PM EDT) Pathologist [facility] POCT Glucose 162(H) 74 - [...] 11/07/2024 4:48 PM EDT [facility] Operating Engineer ID Estefani Sheth 11/07/2024 4:48 PM EDT HEALTHCARE LAB Device ID [id number] 11/07/2024 4:48 PM EDT HEALTHCARE LAB Specimen Type POC Capillary 11/07/2024 4:48 PM EDT HEALTH[facility] LAB Blood Capillary blood specimen / Unknown 11/07/2024 4:47 PM EDT 11/07/2024 4:48 PM EDT Nathaly Nowak MD LAB POINT OF CARE TE ST DOCKED DEVICE UNSOLICITED RESULTS Final Result Performing Organization Address City/[facility] [place] Co de Phone Number [facility] [address] [place] [address] * (ABNORMAL) POCT glucose meter (11/07/2024 12:22 PM EDT) [facility] POCT Glucose 172(H) 74 - [...] Comment 11/07/2024 12:24 PM EDT HEALTHCARE LAB Operating Engineer ID Estefani Sheth 11/07/2024 12:24 PM EDT [facility] Device ID [id number] 11/07/2024 12:24 PM EDT [facility]ALTH[facility]ARE [facility] Specimen Type POC Capillary 11/07/2024 12:24 PM EDT [facility] Blood Capillary blood specimen / Unknown 11/07/2024 12:22 PM EDT 11/07/2024 12:24 PM EDT Nathaly Nowak MD LAB POINT OF CARE TE ST DOCKED DEVICE UNSOLICITED RESULTS Final Result Performing Organization Address City/[facility]/ZIP Co de Phone Number [facility]ALTHCARE [facility] [address] [place] [address] * (ABNORMAL) CBC and Differential (11/07/2024 11:37 AM EDT) [facility] WBC Count 9.96 3.70 - 10.30 10*3/uL LAB HEMATOLOGY METHOD 11/07/2024 12:33 PM EDT [facility] RBC Count 2.81(L) 4.60 - 6.10 10*6/uL LAB HEMATOLOGY METHOD 11/07/2024 12:33 PM EDT [facility] HGB 8.5(L) 13.7 - 17.5 g/dL LAB HEMATOLOGY METHOD 11/07/2024 12:33 PM EDT [facility] HCT 26.0(L) 40.0 - 51.0 % LAB HEMATOLOGY METHOD 11/07/2024 12:33 PM EDT [facility] Platelet Count 524(H) 155 - 369 10*3/uL LAB HEMATOLOGY METHOD 11/07/2024 12:33 PM EDT [facility] MCV 93 79 - 98 fL LAB HEMATOLOGY METHOD 11/07/2024 12:33 PM EDT [facility] MCH 30.2 26.0 - 32.0 pg LAB HEMATOLOGY METHOD 11/07/2024 12:33 PM EDT [facility] MCHC 32.7 30.7 - 35.5 g/dL LAB HEMATOLOGY METHOD 11/07/2024 12:33 PM EDT [facility] RDW 13.1 11.5 - 14.5 % LAB HEMATOLOGY METHOD 11/07/2024 12:33 PM EDT [facility] MPV 9.0 8.8 - 12.5 fL LAB HEMATOLOGY METHOD 11/07/2024 12:33 PM EDT [facility] nRBC 0.0 <=0.0 per 100 WBCs LAB HEMATOLOGY METHOD 11/07/2024 12:33 PM EDT [facility] Differential Type Automated LAB HEMATOLOGY METHOD 11/07/2024 12:33 PM EDT [facility] Neutrophils % 72 % LAB HEMATOLOGY METHOD 11/07/2024 12:33 PM EDT [facility] Lymphocytes % 17 % LAB HEMATOLOGY METHOD 11/07/2024 12:33 PM EDT [facility] Monocytes % 9 % LAB HEMATOLOGY METHOD 11/07/2024 12:33 PM EDT [facility] Eosinophils % 1 % LAB HEMATOLOGY METHOD 11/07/2024 12:33 PM EDT [facility] Basophils % 1 % LAB HEMATOLOGY METHOD 11/07/2024 12:33 PM EDT [facility] Immature Granulocytes % 0 % LAB HEMATOLOGY METHOD 11/07/2024 12:33 PM EDT [facility] Neutrophils Absolute 7.19(H) 1.60 - 6.10 10*3/uL LAB HEMATOLOGY METHOD 11/07/2024 12:33 PM EDT [facility] Lymphocytes Absolute 1.66 1.20 - 3.90 10*3/uL LAB HEMATOLOGY METHOD 11/07/2024 12:33 PM EDT [facility] Monocytes Absolute 0.88 0.30 - 0.90 10*3/uL LAB HEMATOLOGY METHOD 11/07/2024 12:33 PM EDT [facility] Eosinophils Absolute 0.14 0.00 - 0.50 10*3/uL LAB HEMATOLOGY METHOD 11/07/2024 12:33 PM EDT [facility] Basophils Absolute 0.05 0.00 - 0.10 10*3/uL LAB HEMATOLOGY METHOD 11/07/2024 12:33 PM EDT [facility] Immature Granulocytes Absolute 0.04 0.00 - 0.06 10*3/uL LAB HEMATOLOGY METHOD 11/07/2024 12:33 PM EDT [facility] Blood Venous blood specimen / Unknown Venipuncture / Unknown 11/07/2024 11:37 AM EDT 11/07/2024 12:24 PM EDT Narrative [facility] - 11/07/2024 12:33 PM EDT Therapeutic decision making should be based on absolute values, rather than percentages. us Nathaly Nowak MD LAB BLOOD ORDERABLES Final Resu lt [facility] [address] [place] [address] * (ABNORMAL) Comprehensive Metabolic Panel, Plasma (11/07/2024 11:37 AM EDT) Glucose, Plasma 173(H) 74 - 99 mg/dL 11/07/2024 1:31 PM EDT [facility] BUN, Plasma 13 8 - 23 mg/dL 11/07/2024 1:31 PM EDT [facility] Creatinine, Plasma 0.92 0.70 - 1.20 mg/dL 11/07/2024 1:31 PM EDT [facility] BUN/Creatinine Ratio 14 11/07/2024 1:31 PM EDT [facility] Sodium, Plasma 136 136 - 145 mmol/L 11/07/2024 1:31 PM EDT [facility] Potassium, Plasma 4.0 3.6 - 4.9 mmol/L 11/07/2024 1:31 PM EDT [facility] Chloride, Plasma 104 97 - 107 mmol/L 11/07/2024 1:31 PM EDT [facility] CO2, Plasma 23 22 - 29 mmol/L 11/07/2024 1:31 PM EDT [facility] Anion Gap 9 6 - 16 mmol/L 11/07/2024 1:31 PM EDT [facility] Total Calcium, Plasma 7.8(L) 8.9 - 10.2 mg/dL 11/07/2024 1:31 PM EDT [facility] Total Protein 5.7(L) 6.3 - 7.9 g/dL 11/07/2024 1:31 PM EDT [facility] Albumin, Plasma 3.0(L) 3.5 - 5.2 g/dL 11/07/2024 1:31 PM EDT [facility] AST, Plasma 15 10 - 50 U/L 11/07/2024 1:31 PM EDT [facility] ALT, Plasma 16 10 - 50 U/L 11/07/2024 1:31 PM EDT [facility] Alkaline Phosphatase, Plasma 119(H) 40 - 115 U/L 11/07/2024 1:31 PM EDT [facility] Total Bilirubin, Plasma <0.2(L) 0.2 - 1.1 mg/dL 11/07/2024 1:31 PM EDT [facility] eGFRcr 92.3 mL/min/1.7 3m*2 11/07/2024 1:31 PM EDT [facility] Comment:Reported eGFRcr in m L/min/1.73m2 is based the CKD-EPI 2020 equation that does not use a race coefficient. Blood Venous blood specimen / Unknown Venipuncture / Unknown 11/07/2024 11:37 AM EDT 11/07/2024 12:23 PM EDT Nathaly Nowak MD LAB BLOOD ORDERABLES Final Resu lt Performing Organization Address City/[facility]/ZIP Co de Phone Number [facility] [address] [place] [address] * Type and Screen (11/07/2024 11:37 AM EDT) Pathologist [facility] ABO/Rh A Negative 11/06/2024 8:56 AM EDT BLOOD BANK Antibody Screen Negative 11/06/2024 8:56 AM EDT BLOOD BANK Specimen Expiration 11/10/2024 23:59 11/06/2024 8:56 AM EDT BLOOD BANK Blood Venous blood specimen / Unknown Venipuncture / Unknown 11/07/2024 11:37 AM EDT 11/07/2024 11:50 AM EDT Sabrina Barron [facility] LAB BLOOD BANK TEST ORDERABLES F inal Result Performing Organization Address [facility] de Phone Number BLOOD BANK [address] [place] [address] * (ABNORMAL) POCT glucose meter (11/07/2024 10:34 AM EDT) [facility] POCT Glucose 199(H) 74 - 99 mg/dL [...] Comment 11/07/2024 10:36 AM EDT [facility]ALTHCARE LAB Operating Engineer ID Joy Iraheta Beatrice 11/07/2024 10:36 AM EDT [facility] Device ID [id number] 11/07/2024 10:36 AM EDT [facility] Specimen Type POC Capillary 11/07/2024 10:36 AM EDT [facility] Blood Capillary blood specimen / Unknown 11/07/2024 10:34 AM EDT 11/07/2024 10:36 AM EDT Nathaly Nowak MD LAB POINT OF CARE TE ST DOCKED DEVICE UNSOLICITED RESULTS Final Result Performing Organization Address City/[facility] Co de Phone Number [facility]ALTH[facility]ARE [facility] [address] [place] [address] * (ABNORMAL) POCT glucose meter (11/07/2024 9:34 [...] for testing. Comment 11/07/2024 9:36 AM EDT [facility] Operating Engineer ID Brigitte Castellon 11/07/2024 9:36 AM EDT HEALTHCARE LAB Device ID [id number] 11/07/2024 9:36 AM EDT [facility] Specimen Type POC Capillary 11/07/2024 9:36 AM EDT [facility] Blood Capillary blood specimen / Unknown 11/07/2024 9:34 AM EDT 11/07/2024 9:36 AM EDT Nathaly Nowak MD LAB POINT OF CARE TE ST DOCKED DEVICE UNSOLICITED RESULTS Final Result Performing Organization Address City/[facility]/ZIP Co de Phone Number [facility] [address] [place] [address] * (ABNORMAL) POCT glucose meter (11/07/2024 8:20 [...] Comment 11/07/2024 8:22 AM EDT HEALTHCARE LAB Operating Engineer ID Estefani Sheth 11/07/2024 8:22 AM EDT HEALTHCARE LAB Device ID [id number] 11/07/2024 8:22 AM EDT [facility]ALTH[facility]ARE LAB Specimen Type POC Capillary 11/07/2024 8:22 AM EDT [facility] Blood Capillary blood specimen / Unknown 11/07/2024 8:20 AM EDT 11/07/2024 8:22 AM EDT Nathaly Nowak MD LAB POINT OF CARE TE ST DOCKED DEVICE UNSOLICITED RESULTS Final Result Performing Organization Address City/State/[facility] Co de Phone Number [facility]ALTHCARE LAB [address] [place] [address] * (ABNORMAL) POCT glucose meter (11/07/2024 7:21 AM EDT) [facility] Signature POCT Glucose 151(H) 74 - 99 mg/dL [...] Comment 11/07/2024 7:22 AM EDT HEALTHCARE LAB Operating Engineer ID Brigitte Castellon 11/07/2024 7:22 AM EDT HEALTHCARE LAB Device ID [id number] 11/07/2024 7:22 AM EDT [facility]ALTH[facility]ARE LAB Specimen Type POC Capillary 11/07/2024 7:22 AM EDT [facility] Blood Capillary blood specimen / Unknown 11/07/2024 7:21 AM EDT 11/07/2024 7:22 AM EDT Nathaly Nowak MD LAB POINT OF CARE TE ST DOCKED DEVICE UNSOLICITED RESULTS Final Result [facility] [address] [place] [address] * (ABNORMAL) POCT glucose meter (11/07/2024 6:25 [...] for testing. Comment 11/07/2024 6:27 AM EDT [facility] Operating Engineer ID Nelda Gerber 11/08/19 6:27 AM EDT HEALTHCARE LAB Device ID [id number] 11/07/2024 6:27 AM EDT [facility] Specimen Type POC Capillary 11/07/2024 6:27 AM EDT [facility] Blood Capillary blood specimen / Unknown 11/07/2024 6:25 AM EDT 11/07/2024 6:27 AM EDT Nathaly Nowak MD LAB POINT OF CARE TE ST DOCKED DEVICE UNSOLICITED RESULTS Final Result Performing Organization Address City/[facility]/ZIP Co de Phone Number [facility] [address] [place] [address] * (ABNORMAL) POCT glucose meter (11/07/2024 5:03 [...] 11/07/2024 5:08 AM EDT [facility] Operating Engineer ID Nelda Gerber 11/08/19 5:08 AM EDT [facility]ALTH[facility]ARE LAB Device ID [id number] 11/07/2024 5:08 AM EDT [facility]ALTH[facility]ARE LAB Specimen Type POC Capillary 11/07/2024 5:08 AM EDT [facility] Blood Capillary blood specimen / Unknown 11/07/2024 5:03 AM EDT 11/07/2024 5:08 AM EDT Nathaly Nowak MD LAB POINT OF CARE TE ST DOCKED DEVICE UNSOLICITED RESULTS Final Result Performing Organization Address City/[facility] Co de Phone Number [facility] [address] [place] [address] * (ABNORMAL) POCT glucose meter (11/07/2024 4:16 AM EDT) [facility] POCT Glucose 142(H) 74 - [...] Comment 11/07/2024 4:18 AM EDT HEALTHCARE LAB Operating Engineer ID Nelda Gerber 11/08/19 4:18 AM EDT HEALTHCARE LAB Device ID [id number] 11/07/2024 4:18 AM EDT [facility]ALTH[facility]ARE [facility] Specimen Type POC Capillary 11/07/2024 4:18 AM EDT [facility] Blood Capillary blood specimen / Unknown 11/07/2024 4:16 AM EDT 11/07/2024 4:18 AM EDT Nathaly Nowak MD LAB POINT OF CARE TE ST DOCKED DEVICE UNSOLICITED RESULTS Final Result Performing Organization Address City/[facility]/ZIP Co de Phone Number [facility] [address] [place] [address] * (ABNORMAL) POCT glucose meter (11/07/2024 3:21 AM EDT) [facility] POCT Glucose 141(H) 74 - 99 mg/dL [...] Comment 11/07/2024 3:23 AM EDT [facility]ALTH[facility]ARE [facility] Operating Engineer ID Nelda Gerber 11/08/19 3:23 AM EDT [facility]ALTH[facility]ARE LAB Device ID [id number] 11/07/2024 3:23 AM EDT [facility] Specimen Type POC Capillary 11/07/2024 3:23 AM EDT [facility] Blood Capillary blood specimen / Unknown 11/07/2024 3:21 AM EDT 11/07/2024 3:23 AM EDT Nathaly Nowak MD LAB POINT OF CARE TE ST DOCKED DEVICE UNSOLICITED RESULTS Final Result Performing Organization Address City/State/[facility] [place] Co de Phone Number [facility] [address] [place] [address] * (ABNORMAL) POCT glucose meter (11/07/2024 2:10 AM EDT) [facility] POCT Glucose 146(H) 74 - 99 [...] Comment 11/07/2024 2:12 AM EDT HEALTHCARE LAB Operating Engineer ID Nelda Gerber 11/08/19 2:12 AM EDT HEALTHCARE LAB Device ID [id number] 11/07/2024 2:12 AM EDT [facility]ALTH[facility]ARE LAB Specimen Type POC Capillary 11/07/2024 2:12 AM EDT [facility] Blood Capillary blood specimen / Unknown 11/07/2024 2:10 AM EDT 11/07/2024 2:12 AM EDT Nathaly Nowak MD LAB POINT OF CARE TE ST DOCKED DEVICE UNSOLICITED RESULTS Final Result Performing Organization Address [facility] Co de Phone Number [facility]ALTH[facility]ARE [facility] [address] [place] [address] * (ABNORMAL) POCT glucose meter (11/07/2024 1:08 AM EDT) Pathologist [facility] POCT Glucose 135(H) 74 - 99 mg/dL [...] Comment 11/07/2024 1:10 AM EDT HEALTHCARE LAB Operating Engineer ID Nelda Gerber 11/08/19 1:10 AM EDT HEALTHCARE LAB Device ID [id number] 11/07/2024 1:10 AM EDT [facility] Specimen Type POC Capillary 11/07/2024 1:10 AM EDT [facility] Blood Capillary blood specimen / Unknown 11/07/2024 1:08 AM EDT 11/07/2024 1:10 AM EDT Nathaly Nowak MD LAB POINT OF CARE TE ST DOCKED DEVICE UNSOLICITED RESULTS Final Result Performing Organization Address City/[facility] Co de Phone Number [facility] [address] [place] [address] * (ABNORMAL) POCT glucose meter (11/07/2024 12:10 AM EDT) Pathologist [facility] POCT Glucose 127(H) 74 - 99 [...] 11/07/2024 12:13 AM EDT [facility] Operating Engineer ID Nelda Gerber 11/08/19 12:13 AM EDT [facility] Device ID [id number] 11/07/2024 12:13 AM EDT [facility] Specimen Type POC Capillary 11/07/2024 12:13 AM EDT [facility]ALTH[facility]ARE LAB Blood Capillary blood specimen / Unknown 11/07/2024 12:10 AM EDT 11/07/2024 12:13 AM EDT Nathaly Nowak MD LAB POINT OF CARE TE ST DOCKED DEVICE UNSOLICITED RESULTS Final Result Performing Organization Address City/State/[facility] Co de Phone Number [facility] [address] [place] [address] * (ABNORMAL) POCT glucose meter (11/06/2024 11:14 PM EDT) [facility] POCT Glucose 71(L) 74 - [...] Comment 11/06/2024 11:16 PM EDT HEALTHCARE LAB Operating Engineer ID Nelda Gerber 11/07/19 11:16 PM EDT HEALTHCARE LAB Device ID [id number] 11/06/2024 11:16 PM EDT [facility] Specimen Type POC Capillary 11/06/2024 11:16 PM EDT [facility] Blood Capillary blood specimen / Unknown 11/06/2024 11:14 PM EDT 11/06/2024 11:16 PM EDT us Nathaly Nowak MD LAB POINT OF CARE TE ST DOCKED DEVICE UNSOLICITED RESULTS Final Result Performing Organization Address City/[facility]/ZIP Co de Phone Number [facility] [address] [place] [address] * (ABNORMAL) POCT glucose meter (11/06/2024 10:07 PM EDT) [facility] POCT Glucose 140(H) 74 - 99 mg/dL 11/06/2024 10:09 PM EDT HEALTHCARE LAB Comment:Accuracy of a [...] Comment 11/06/2024 10:09 PM EDT HEALTHCARE LAB Operating Engineer ID Nelda Gerber 11/07/19 10:09 PM EDT HEALTHCARE LAB Device ID [id number] 11/06/2024 10:09 PM EDT [facility] Specimen Type POC Capillary 11/06/2024 10:09 PM EDT [facility] Blood Capillary blood specimen / Unknown 11/06/2024 10:07 PM EDT 11/06/2024 10:09 PM EDT Nathaly Nowak MD LAB POINT OF CARE TE ST DOCKED DEVICE UNSOLICITED RESULTS Final Result Performing Organization Address [facility]/ZIP Co de Phone Number [facility] [address] [place] [address] * (ABNORMAL) POCT glucose meter (11/06/2024 8:22 PM EDT) [facility] POCT Glucose 256(H) 74 - 99 mg/dL [...] 11/06/2024 8:25 PM EDT [facility] Operating Engineer ID Nelda Gerber 11/07/19 8:25 PM EDT HEALTHCARE LAB Device ID [id number] 11/06/2024 8:25 PM EDT [facility]ALTH[facility]ARE LAB Specimen Type POC Capillary 11/06/2024 8:25 PM EDT [facility] Blood Capillary blood specimen / Unknown 11/06/2024 8:22 PM EDT 11/06/2024 8:25 PM EDT Nathaly Nowak MD LAB POINT OF CARE TE ST DOCKED DEVICE UNSOLICITED RESULTS Final Result Performing Organization Address City/[facility] Co de Phone Number [facility] [address] [place] [address] * (ABNORMAL) POCT glucose meter (11/06/2024 7:31 PM EDT) [facility] POCT Glucose 359(H) 74 - 99 mg/dL [...] 11/06/2024 7:32 PM EDT [facility] Operating Engineer ID Nelda Gerber 11/07/19 7:32 PM EDT HEALTHCARE LAB Device ID [id number] 11/06/2024 7:32 PM EDT [facility]ALTH[facility]ARE [facility] Specimen Type POC Capillary 11/06/2024 7:32 PM EDT [facility] Blood Capillary blood specimen / Unknown 11/06/2024 7:31 PM EDT 11/06/2024 7:32 PM EDT Nathaly Nowak MD LAB POINT OF CARE TE ST DOCKED DEVICE UNSOLICITED RESULTS Final Result Performing Organization Address City/[facility] Co de Phone Number [facility] [address] [place] [address] * (ABNORMAL) POCT glucose meter (11/06/2024 6:15 PM EDT) [facility] POCT Glucose 368(H) 74 - 99 [...] Comment 11/06/2024 6:17 PM EDT HEALTHCARE LAB Operating Engineer ID Estefani Sheth 11/06/2024 6:17 PM EDT HEALTHCARE LAB Device ID [id number] 11/06/2024 6:17 PM EDT HEALTH[facility]ARE LAB Specimen Type POC Capillary 11/06/2024 6:17 PM EDT [facility] Blood Capillary blood specimen / Unknown 11/06/2024 6:15 PM EDT 11/06/2024 6:17 PM EDT Nathaly Nowak MD LAB POINT OF CARE TE ST DOCKED DEVICE UNSOLICITED RESULTS Final Result [facility] [address] [place] [address] * (ABNORMAL) POCT glucose meter (11/06/2024 4:57 PM EDT) [facility] POCT Glucose 417(H) 74 - 99 [...] Comment 11/06/2024 4:58 PM EDT HEALTHCARE LAB Operating Engineer ID Estefani Sheth 11/06/2024 4:58 PM EDT HEALTHCARE LAB Device ID [id number] 11/06/2024 4:58 PM EDT [facility]ALTH[facility]ARE [facility] Specimen Type POC Capillary 11/06/2024 4:58 PM EDT [facility] Blood Capillary blood specimen / Unknown 11/06/2024 4:57 PM EDT 11/06/2024 4:58 PM EDT Nathaly Nowak MD LAB POINT OF CARE TE ST DOCKED DEVICE UNSOLICITED RESULTS Final Result Performing Organization Address [facility] de Phone Number HEALTHCARE LAB [address] [place] [address] * (ABNORMAL) POCT glucose meter (11/06/2024 2:08 PM EDT) [facility] POCT Glucose 253(H) 74 - 99 mg/dL [...] Comment 11/06/2024 2:09 PM EDT HEALTHCARE LAB Operating Engineer ID Brigitte Castellon 11/06/2024 2:09 PM EDT HEALTHCARE LAB Device ID [id number] 11/06/2024 2:09 PM EDT [facility] Specimen Type POC Capillary 11/06/2024 2:09 PM EDT [facility] Blood Capillary blood specimen / Unknown 11/06/2024 2:08 PM EDT 11/06/2024 2:09 PM EDT Nathaly Nowak MD LAB POINT OF CARE TE ST DOCKED DEVICE UNSOLICITED RESULTS Final Result Performing Organization Address [facility] Co de Phone Number HEALTHCARE LAB [address] [place] [address] * (ABNORMAL) POCT glucose meter (11/06/2024 12:27 PM EDT) [facility] POCT Glucose 228(H) 74 - 99 mg/dL [...] Comment 11/06/2024 12:28 PM EDT HEALTHCARE LAB Operating Engineer ID Jacinta Galloway 11/06/2024 12:28 PM EDT HEALTHCARE LAB Device ID [id number] 11/06/2024 12:28 PM EDT [facility]ALTH[facility] Specimen Type POC Capillary 11/06/2024 12:28 PM EDT [facility] Blood Capillary blood specimen / Unknown 11/06/2024 12:27 PM EDT 11/06/2024 12:28 PM EDT Nathaly Nowak MD LAB POINT OF CARE TE ST DOCKED DEVICE UNSOLICITED RESULTS Final Result [facility] [address] [place] [address] * (ABNORMAL) Tissue Culture and Gram Stain (11/06/2024 11:34 AM EDT) Culture Moderate Growth 7:35 AM EDT [facility] Culture 2+ Enterobacter cloacae complex(A) ANGÉLICA 11/15/2024 7:35 AM EDT [facility] Comment: This isolate has been identified using the FDA Approved [employer] [place] System The organism value for this result has been updated. These results have been appended to the previously preliminary verified report. Edited result: Previously reported as Gram Negative Jesus on 11/07/2024 at 1434 EDT. Culture 2+ Streptococcus mitis/oralis group(A) ANGÉLICA 11/15/2024 7:35 AM EDT [facility] Comment: This isolate has been identified using the FDA Approved [employer] [place] System The organism value for this result has been updated. These results have been appended to the previously preliminary verified report. Culture 2+ Pasteurella stomatis(A) ANGÉLICA 11/15/2024 7:35 AM EDT [facility] Comment: This result was determined by [employer] tof mass spectrometry using the [employer] database and is for research use only. The organism value for this result has been updated. These results have been appended to the previously preliminary verified report. Gram Stain Result Few Gram negative rods(A) 11/15/2024 7:35 AM EDT [facility] Gram Stain Result Moderate Polymorphonuclear leukocytes(A) 11/15/2024 7:35 AM EDT [facility] Gram Stain Result Few Gram positive cocci in pairs(A) 11/15/2024 7:35 AM EDT [facility] Tissue Topography unknown / Unknown 11/06/2024 11:34 AM EDT 11/06/2024 12:18 PM EDT Comment:Pre-op diagnosis: Surgical wound infection [T81.49XA] Narrative [facility] - 11/15/2024 7:35 AM [...] GENERAL ATIYA FRITZ Edited Result - Final [facility] [address] [place] [address] * (ABNORMAL) Anaerobic Culture (11/06/2024 11:34 AM EDT) Culture No anaerobes isolated 11/14/2024 1:25 PM EDT [facility] Culture Staphylococcus pseudintermedius( A) 11/14/2024 1:25 PM EDT [facility] Comment: This result was determined by [employer] tof mass spectrometry using the [employer] database and is for research use only. This is an appended report. These results have been appended to a previously final verified report. Tissue Topography unknown / Unknown 11/06/2024 11:34 AM EDT 11/06/2024 12:18 PM EDT Comment:Pre-op diagnosis: Surgical wound infection [T81.49XA] Narrative [facility] - 11/14/2024 1:25 PM [...] GENERAL ORDE LAM Edited Result - Final [facility] [address] [place] [address] * (ABNORMAL) Routine Culture and Gram Stain (11/06/2024 11:29 AM EDT) Culture Moderate Growth 5:29 PM EDT [facility] Culture Enterobacter cloacae complex(A) 11/08/2024 5:29 PM EDT [facility] Comment: This isolate has been identified using the FDA Approved [employer] System For susceptibility results refer to: - [id number] The organism value for this result has been updated. These results have been appended to the previously preliminary verified report. Gram Stain Result No polymorphonuclear leukocytes seen 11/08/2024 5:29 PM EDT [facility] Gram Stain Result No organisms seen 11/08/2024 5:29 PM EDT [facility] Swab Topography unknown / Unknown 11/06/2024 11:29 AM EDT 11/06/2024 12:19 PM EDT Comment:Pre-op diagnosis: Surgical wound infection [T81.49XA] Nathaly Nowak MD LAB MICROBIOLOGY - GENERAL ORDE RABONEIDA Final Result Performing Organization Address [facility] Co de Phone Number [facility] [address] [place] [address] * Fungal Culture, Routine (11/06/2024 11:29 AM EDT) Culture No Fungal Growth at 1 Week 11/13/2024 8:29 AM EDT [facility] Swab Topography unknown / Unknown 11/06/2024 11:29 AM EDT 11/06/2024 12:19 PM EDT Comment:Pre-op diagnosis: Surgical wound infection [T81.49XA] Nathaly Nowak MD LAB MICROBIOLOGY - GENERAL ORDE LAM Final Result Performing Organization Address [facility] de Phone Number [facility] [address] [place] [address] * (ABNORMAL) Anaerobic Culture (11/06/2024 11:29 AM EDT) Culture No anaerobes isolated 11/14/2024 1:25 PM EDT [facility] Culture Streptococcus mitis/oralis group(A) 11/14/2024 1:25 PM EDT [facility] Comment: This result was determined by [employer]DI tof mass spectrometry using the My[employer] database and is for research use only. The organism value for this result has been updated. These results have been appended to the previously preliminary verified report. This is a corrected result. Previous organism was Mixed skin clifton on 11/10/2024 at 0718 EDT. Culture Staphylococcus pseudintermedius( A) 11/14/2024 1:25 PM EDT [facility] Comment: This isolate has been identified using the FDA Approved [employer] [place] System This is an appended report. These results have been appended to a previously final verified report. Swab Topography unknown / Unknown 11/06/2024 11:29 AM EDT 11/06/2024 12:19 PM EDT Comment:Pre-op diagnosis: Surgical wound infection [T81.49XA] Narrative [facility] - 11/14/2024 1:25 PM [...] Nowak MD LAB MICROBIOLOGY - GENERAL ATIYA FRTIZ Edited Result - Final [facility] [address] [place] [address] * Routine Culture and Gram Stain (11/06/2024 11:28 AM EDT) Culture No growth at day 4 2024 11:24 AM EDT [facility] Gram Stain Result No organisms seen 11/10/2024 11:24 AM EDT [facility] Gram Stain Result No polymorphonuclear leukocytes seen 11/10/2024 11:24 AM EDT [facility] Swab Topography unknown / Unknown 11/06/2024 11:28 AM EDT 11/06/2024 12:20 PM EDT Comment:Pre-op diagnosis: Surgical wound infection [T81.49XA] Nathaly Nowak MD LAB MICROBIOLOGY - GENERAL ATIYA FRITZ Final Result Performing Organization Address City/[facility]/ZIP Co de Phone Number [facility] [address] [place] [address] * Fungal Culture, Routine (11/06/2024 11:28 AM EDT) Culture No Fungal Growth at 1 Week 11/13/2024 8:29 AM EDT [facility] Swab Topography unknown / Unknown 11/06/2024 11:28 AM EDT 11/06/2024 12:20 PM EDT Comment:Pre-op diagnosis: Surgical wound infection [T81.49XA] Nathaly Nowak MD LAB MICROBIOLOGY - GENERAL ATIYA FRITZ Final Result Performing Organization Address City/[facility] Co de Phone Number [facility] [address] [place] [address] * Anaerobic Culture (11/06/2024 11:28 AM EDT) Culture No growth at day 4 11/13/2024 12:53 PM EDT [facility] Swab Topography unknown / Unknown 11/06/2024 11:28 AM EDT 11/06/2024 12:20 PM EDT Comment:Pre-op diagnosis: Surgical wound infection [T81.49XA] Nathaly Nowak MD LAB MICROBIOLOGY - GENERAL ATIYA FRITZ Final Result Performing Organization Address City/[facility]/ZIP Co de Phone Number [facility] [address] [place] [address] * (ABNORMAL) POCT glucose meter (11/06/2024 10:16 AM EDT) POCT Glucose 194(H) 74 - 99 mg/dL 11/06/2024 10:18 AM EDT [facility] Comment:Accuracy of a glucos e [...] Comment 11/06/2024 10:18 AM EDT [facility] Operating Engineer ID Lacy Griffin 11/07/19 10:18 AM EDT [facility] Device ID [id number] 11/06/2024 10:18 AM EDT [facility] Specimen Type POC Capillary 11/06/2024 10:18 AM EDT [facility] Blood Capillary blood specimen / Unknown 11/06/2024 10:16 AM EDT 11/06/2024 10:18 AM EDT us Nathaly Nowak MD LAB POINT OF CARE TE ST DOCKED DEVICE UNSOLICITED RESULTS Final Result Performing Organization Address City/State/[facility] Co de Phone Number [facility] [address] [place] [address] * (ABNORMAL) POCT glucose meter (11/06/2024 5:58 [...] Comment 11/06/2024 6:01 AM EDT [facility] Operating Engineer ID Raj Laird 11/07/19 6:01 AM EDT [facility] Device ID [id number] 11/06/2024 6:01 AM EDT [facility] Specimen Type POC Capillary 11/06/2024 6:01 AM EDT [facility] Blood Capillary blood specimen / Unknown 11/06/2024 5:58 AM EDT 11/06/2024 6:01 AM EDT us Nathaly oNwak MD LAB POINT OF CARE TE ST DOCKED DEVICE UNSOLICITED RESULTS Final Result [facility] [address] [place] [address] * (ABNORMAL) POCT glucose meter (11/06/2024 5:36 AM EDT) POCT Glucose 202(H) 74 - 99 mg/dL 11/06/2024 5:38 AM EDT [facility] Comment:Accuracy of a glucos e [...] for testing. Comment 11/06/2024 5:38 AM EDT [facility] Operating Engineer ID Shahid Sanches 11/06/2024 5:38 AM EDT [facility] Device ID [id number] 11/06/2024 5:38 AM EDT [facility] Specimen Type POC Capillary 11/06/2024 5:38 AM EDT [facility] Blood Capillary blood specimen / Unknown 11/06/2024 5:36 AM EDT 11/06/2024 5:38 AM EDT us Nathaly Nowak MD LAB POINT OF CARE TE ST DOCKED DEVICE UNSOLICITED RESULTS Final Result [facility] [address] [place] [address] * (ABNORMAL) Hemoglobin A1c (11/06/2024 1:07 AM EDT) Hemoglobin A1c 7.6(H) <5.7 % 11/06/2024 11:09 AM EDT [facility] Blood Venous blood specimen / Unknown Venipuncture / Unknown 11/06/2024 1:07 AM EDT 11/06/2024 1:26 AM EDT Narrative [facility] - 11/06/2024 11:09 AM EDT HA1C Interpretive Data: Diagnosis of Diabetes: Diabetic > or = 6.5% Pre-diabetic 5.7 to 6.4% Non-diabetic < or = 5.6% Glycemic Targets for Type I and Type II Diabetics: Non- Adults <7.0% Adults <6.0% Children and Adolescents <7.5% Source: [place] [employer]. Standards of medical care in diabetes,2017. Diabetes Care.2017:40 (suppl 1):S1-S135. Nathaly Nowak MD LAB BLOOD ORDERABLES Final Resu lt Performing Organization Address City/[facility]/[place] [address] * Blood Culture (Aerobic/Anaerobet Set) (11/06/2024 1:07 AM EDT) Culture No growth at day 5 11/11/2024 2:49 AM EDT [facility] Blood Structure of right hand / Unknown Venipuncture / Unknown 11/06/2024 1:07 AM EDT 11/06/2024 2:36 AM EDT Nathlay Nowak MD LAB MICROBIOLOGY - GENERAL ORDE RABONEIDA Final Result Performing Organization Address [facility] [place] [address] * Blood Culture (Aerobic/Anaerobet Set) (11/06/2024 1:07 AM EDT) Culture No growth at day 5 11/11/2024 3:01 AM EDT [facility] Blood Structure of antecubital vein / Unknown Venipuncture / Unknown 11/06/2024 1:07 AM EDT 11/06/2024 2:36 AM EDT Nathaly Nowak MD LAB MICROBIOLOGY - GENERAL ORDE RABONEIDA Final Result Performing Organization Address [facility] [place] [address] * (ABNORMAL) Basic metabolic panel (11/06/2024 1:07 AM EDT) Glucose, Plasma 207(H) 74 - 99 mg/dL 11/06/2024 1:41 AM EDT [facility] BUN, Plasma 20 8 - 23 mg/dL 11/06/2024 1:41 AM EDT [facility] Creatinine, Plasma 0.92 0.70 - 1.20 mg/dL 11/06/2024 1:41 AM EDT [facility] BUN/Creatinine Ratio 22 11/06/2024 1:41 AM EDT [facility] Sodium, Plasma 136 136 - 145 mmol/L 11/06/2024 1:41 AM EDT [facility] Potassium, Plasma 4.5 3.6 - 4.9 mmol/L 11/06/2024 1:41 AM EDT [facility] Chloride, Plasma 104 97 - 107 mmol/L 11/06/2024 1:41 AM EDT [facility] CO2, Plasma 22 22 - 29 mmol/L 11/06/2024 1:41 AM EDT [facility] Anion Gap 10 6 - 16 mmol/L 11/06/2024 1:41 AM EDT [facility] Total Calcium, Plasma 9.0 8.9 - 10.2 mg/dL 11/06/2024 1:41 AM EDT [facility] eGFRcr 92.3 mL/min/1.7 3m*2 11/06/2024 1:41 AM EDT [facility] Comment:Reported eGFRcr in m L/min/1.73m2 is based the CKD-EPI 2020 equation that does not use a race coefficient. Blood Venous blood specimen / Unknown Venipuncture / Unknown 11/06/2024 1:07 AM EDT 11/06/2024 1:12 AM EDT us Nathaly Nowak MD LAB BLOOD ORDERABLES Final Resu lt [facility] [address] [place] [address] * Phosphorus (11/06/2024 1:07 AM EDT) Phosphorus, Plasma 3.2 2.5 - 4.5 mg/dL 11/06/2024 1:41 AM EDT [facility] Blood Venous blood specimen / Unknown Venipuncture / Unknown 11/06/2024 1:07 AM EDT 11/06/2024 1:12 AM EDT Nathaly Nowak MD LAB BLOOD ORDERABLES Final Resu lt Performing Organization Address [facility]/ZIP Co de Phone Number [facility] [address] [place] [address] * Magnesium (11/06/2024 1:07 AM EDT) Magnesium, Plasma 2.2 1.9 - 2.4 mg/dL 11/06/2024 1:41 AM EDT [facility] Blood Venous blood specimen / Unknown Venipuncture / Unknown 11/06/2024 1:07 AM EDT 11/06/2024 1:12 AM EDT Nathaly Nowak MD LAB BLOOD ORDERABLES Final Resu lt Performing Organization Address City/[facility]/ZIP Co de Phone Number [facility] [address] [place] [address] * (ABNORMAL) CBC (11/06/2024 1:07 AM EDT) WBC Count 9.70 3.70 - 10.30 10*3/uL LAB HEMATOLOGY METHOD 11/06/2024 1:19 AM EDT [facility] RBC Count 2.89(L) 4.60 - 6.10 10*6/uL LAB HEMATOLOGY METHOD 11/06/2024 1:19 AM EDT [facility] HGB 8.8(L) 13.7 - 17.5 g/dL LAB HEMATOLOGY METHOD 11/06/2024 1:19 AM EDT [facility] HCT 26.2(L) 40.0 - 51.0 % LAB HEMATOLOGY METHOD 11/06/2024 1:19 AM EDT [facility] Platelet Count 542(H) 155 - 369 10*3/uL LAB HEMATOLOGY METHOD 11/06/2024 1:19 AM EDT [facility] MCV 91 79 - 98 fL LAB HEMATOLOGY METHOD 11/06/2024 1:19 AM EDT [facility] MCH 30.4 26.0 - 32.0 pg LAB HEMATOLOGY METHOD 11/06/2024 1:19 AM EDT [facility] MCHC 33.6 30.7 - 35.5 g/dL LAB HEMATOLOGY METHOD 11/06/2024 1:19 AM EDT [facility] RDW 13.2 11.5 - 14.5 % LAB HEMATOLOGY METHOD 11/06/2024 1:19 AM EDT [facility] MPV 8.7(L) 8.8 - 12.5 fL LAB HEMATOLOGY METHOD 11/06/2024 1:19 AM EDT [facility] nRBC 0.0 <=0.0 per 100 WBCs LAB HEMATOLOGY METHOD 11/06/2024 1:19 AM EDT [facility] Blood Venous blood specimen / Unknown Venipuncture / Unknown 11/06/2024 1:07 AM EDT 11/06/2024 1:12 AM EDT us Nathaly Nowak MD LAB BLOOD ORDERABLES Final Resu lt [facility] [address] [place] [address] * Gold Top (11/06/2024 12:58 AM EDT) Extra Hold for add-ons 11/06/2024 3:21 AM EDT [facility] Comment:Auto resulted. Blood Venous blood specimen / Unknown 11/06/2024 12:58 AM EDT 11/06/2024 1:13 AM EDT us Nathaly Nowak MD LAB BLOOD ORDERABLES Final Resu lt [facility] [address] [place] [address] * Gold Top (11/06/2024 12:58 AM EDT) Extra Hold for add-ons 11/06/2024 3:21 AM EDT [facility] Comment:Auto resulted. Blood Venous blood specimen / Unknown 11/06/2024 12:58 AM EDT 11/06/2024 1:13 AM EDT us Nathaly Nowak MD LAB BLOOD ORDERABLES Final Resu lt Performing Organization Address [facility] Co de Phone Number [facility] [address] [place] [address] * Light Green Top (11/06/2024 12:58 AM EDT) Extra Hold for add-ons 11/06/2024 3:21 AM EDT [facility] Comment:Auto resulted. Blood Venous blood specimen / Unknown 11/06/2024 12:58 AM EDT 11/06/2024 1:13 AM EDT us Nathaly Nowak MD LAB BLOOD ORDERABLES Final Resu lt Performing Organization Address [facility] de Phone Number [facility] [address] [place] [address] * Light Blue Top (11/06/2024 12:58 AM EDT) Extra Hold for add-ons 11/06/2024 3:21 AM EDT [facility] Comment:Auto resulted. Blood Venous blood specimen / Unknown 11/06/2024 12:58 AM EDT 11/06/2024 1:13 AM EDT us Nathaly Nowak MD LAB BLOOD ORDERABLES Final Resu lt Performing Organization Address [facility] Co de Phone Number [facility] [address] [place] [address] * Light Blue Top (11/06/2024 12:58 AM EDT) Extra Hold for add-ons 11/06/2024 3:21 AM EDT [facility] Comment:Auto resulted. Blood Venous blood specimen / Unknown 11/06/2024 12:58 AM EDT 11/06/2024 1:13 AM EDT us Nathaly Nowak MD LAB BLOOD ORDERABLES Final Resu lt [facility] [address] [place] [address] * (ABNORMAL) POCT glucose meter (11/06/2024 12:45 [...] for testing. Comment 11/06/2024 12:48 AM EDT [facility] Operating Engineer ID Raj Laird 11/07/19 12:48 AM EDT [facility] Device ID [id number] 11/06/2024 12:48 AM EDT [facility] Specimen Type POC Capillary 11/06/2024 12:48 AM EDT [facility] Blood Capillary blood specimen / Unknown 11/06/2024 12:45 AM EDT 11/06/2024 12:48 AM EDT Nathaly Nowak MD LAB POINT OF CARE TE ST DOCKED DEVICE UNSOLICITED RESULTS Final Result Performing Organization Address City/[facility]/ZIP Co de Phone Number [facility] [address] [place] [address] documented in this encounter Visit Diagnoses Diagnosis [...] PRN, Starting on Mon11/06/24 at 0051, Until Yadira 11/14/24 at 0922, Routine, severe pain Given 11/14/2024 12:18 AM EDT 10 mg Given 11/13/2024 1:53 PM EDT 10 mg Given 11/13/2024 8:36 AM EDT 10 mg oxyCODONE (Roxicodone) immediate release tablet 5 mg 5 mg, Oral, Every 6 hours PRN, Starting on Mon11/06/24 at 0051, Until Yadira 11/14/24 at 0922, Routine, moderate pain Given 11/09/2024 [...] 1305, Until Yadira 11/14/24 at 1402, Routine Given 11/14/2024 2:02 PM [...] needed, Starting on Mon11/06/24 at 0753, Until [facility] 11/14/24 at 1804, Routine, On Unit - Preprocedure, line care sodium chloride 0.9 % flush 10 mL 10 mL, Intravenous, Every 12 hours, First dose on 11/09/24 at 1515, Until Discontinued, Routine Given 11/14/2024 2:42 PM EDT 10 mL Given 11/14/2024 3:03 AM EDT 10 mL Given 11/13/2024 4:43 PM EDT 10 mL Sodium Hypochlorite (Dakin's (HALF-Strength)) external solution 1 Application Irrigation, Daily, First dose on 11/09/24 at 0945, Until Discontinued, Routine Given [...] Routine 0917 (Not Given - Provider: Devora Camarenab - Reason: Order parameters not met - Comment: [phone] (Given - Provider: Devora Camarenab)1806 (Given - Provider: Devora Camarenab) 0839 (Given - Provider: Devora Kahn Bo)1226 (Not Given - Provider: Devora Kahn [...] Vale RN) 0838 (Given - Provider: Devora Bo)2032 (Given - [...] RN) 1210 (Given - Provider: Yazmin Bhatt, CHRISITAN) sodium chloride 0.9 % flush 10 mL(Linked [...] Intravenous, Every 12 hours, First dose on 11/09/24 at 1515, Until Discontinued, Routine 0222 (Given [...] Starting on Yadira 11/14/24 at 0922, Until Mon11/14/24 at 1804, Routine, [...] documented as of this encounter Care Teams Fur Polisher Relationship Specialty Start Date End Date Asad Victor MD [address] [place] [id number] PCP - General 10/07/22 documented as of this encounter
--- OUTSIDE RECORDS SUMMARY | 2024-11-06 10:08 | XMS_ITS | Encounter Summary ---
Author Organization Healthcare Address [address] [place] [address] Care Team Providers Care Cornice Maker Name Role Phone Asad Victor MD Primary Care Provider + [phone] Reason for Visit * Reason Comments Post-op Problem Wound Check * Auth/Cert (Routine) Specialty Diagnoses / Procedures Referred By Contac t Referred To Contact Diagnoses Wound infection Post-op Vasc Sx wounds - sx on 10/17 at Nathaly Nowak MD [address] [address] Phone: tel: fax: [facility] Emergency [facility] [address] [place] [address] Phone: tel: Referral ID Status Reason Start Date Expiration Date Visits Re quested Visits Authorized [id number] 1 1 Encounter Details Date Type Department Care Team (Late st Contact Info) Description 11/06/2024 10:08 AM EDT - 11/06/2024 11:38 AM EDT Surgery [facility] OPERATING ROOM [address] [place] [address] Nathaly Nowak MD [id number] [place] [address] Left groin exploration and washout, [...] drink first t dino in the morning (EYE-STUDY ABROAD COORDINATOR) to steady your nerves or to get rid of a hangover? 0 10/18/2021 CAGE Questionnaire Score 0 022 Utilities Answer Date Recorded In the past 12 months has [employer], gas, oil, or water [employer] threatened to shut off services in your [...] Carmona with any questions or concerns at [phone]. It is important that you get your [...] Note Bev Borja 64 y.o. male CSN: [id number] Admission: 11/05/2024 9:45 PM Primary Problem: Wound infection Primary Casino Host: Primary Caregiver: Self Assistance Available at Discharge: [...] previous admission in last 30 days Follow-up: [facility] [address] [facility] [address] [facility] [address] Go to Infusion Clinic. Please arrive at 11 am daily. [facility] [address] Go to Wound care clinic. First appointment is 1:10 pm. Please call [phone] with scheduling concerns. Discharge Transportation: Transportation Anticipated: medical transport Transportation Home at Discharge: Medical Transport Follow Up Transport: Transportation Needed to Follow up Appoinments: Medical Transport Additional Comments: Patient discharging home. No other SW needs identified. Mariia Monterroso COMMERCIAL REAL ESTATE SALES MANAGER * Discharge Summary - Melecio Echevarria DO - 11/14/2024 12:46 PM EDT Hospitalization Admit Date/Time: 11/05/2024 9:45 PM Admitting Attending: Nathaly Nowak Discharge Date: 11/14/2024 Discharge Attending Physician: Nathaly Nowak MD PCP name and Address: Asad Victor MD (Inactive) [address] [place] [address] / [address] [address] Referring provider name and address: Wade Cowart, DO [address] [place] [address] Chief Concern, Brief History of Present Illness, and Hospital Course Mr. Borja is a 64 y/o male that presented to [facility] on 11/06/2024 for surgical wound [...] Your Medications These [facility] Infusion Services - GLENDA Solorzano - [address], [place] [address] ertapenem injection micafungin injection Discharge Diagnosis Medical [...] Time Provider Department Center 11/26/2024 2:00 PM [facility] VASCULAR [facility] 1 [facility] 11/26/2024 2:30 PM [facility] VASCULAR LAB 2 [facility] 11/26/2024 3:20 PM [facility] 11/29/2024 2:30 PM Oscar Appiah MD [id number] [place] Test Results Pending At Discharge Pending Labs [...] a 64 y/o male that presented to [facility] on 11/06/2024 for surgical wound [...] Note Bev Borja 64 y.o. male CSN: [id number] Admission: 11/05/2024 9:45 PM Primary Problem: Wound infection Wound vac to be delivered today by at bedside. SW sent referral/orders to [facility] wound care center (fax [phone]) and infusion clinic (fax [phone]). Plan to discharge tomorrow. SW will continue to follow. Mariia Monterroso COMMERCIAL REAL ESTATE SALES MANAGER * Progress Notes - Bianca Knight [...] Lumen PICC Antimicrobial Regimen: IV Ertapenem 1g [id number] start date:11/06/2024 Projected End date:12/18/2024 IV Micafungin 150mg [id number] Start date: 11/12/2024 Projected End Date: 12/24/2024 [...] OPAT Team Attn: Dr Kraus Fax #: [phone] Appointments: (Dr Appiah 08/02/2024 at 2.30pm) at: [facility]: [address] [place] [address] (Select Option 3 for IV Antibiotic / PICC line related issues) For questions regarding OPAT prior to discharge, reach out to the OPAT team via Seva Search Secure Chat (Group: OPAT Referral Team). For all questions regarding OPAT after discharge should be directed to the OPAT Team at (Select Option 3 for IV Antibiotics/PICC Issues) between 8am-5pm. After 5 pm, or during weekends/ holidays, please call the paging automatic pad making machine operator at to reach the on-call [...] [facility] Department of Surgery Division of Vascular Surgery Surgery Progress Note 11/13/24 Bev Borja Subjective Subjective: HPI 64yoM PMHx COPD, T2DM, HLD, HTN, RLS, CAD s/p PCI (on Xarelto) s/p pacemaker c/b left SANDIP pseudoaneurysm s/p thrombin injection 09/21/24, CLI s/p left femoral endarterectomy with EIA/MECHANICAL INTEGRITY SPECIALIST stenting 10/17/24, [facility] 09/21/24, CLI s/p left femoral endarterectomy with EIA/MECHANICAL INTEGRITY SPECIALIST stenting 10/17/24, [facility] [...] the findings. Cardiac Device Check - PRE-OR [facility] EP-Device Clinic: Pre-operative CIED Report Assessment and Sara-Procedural Reommendations: Name: Bev Borja Date: 10/17/2024 : 1960 Age: 64 y.o. Patient has a Engine Monitor: Berger DISTILLATION OPERATOR-PM Remaining battery longevity adequate. Lead integrity [...] recommendations. Supporting reports can be found in Vadio media file. Micro: Susceptibility data from last [...] Units Date/Time Tissue Culture and Gram Stain [[id number]] (Abnormal) (Susceptibility) Collected: 11/06/24 1134 Order Status: Completed Specimen: Tissue from Other (specify site) Updated: 11/12/24 1334 Culture Moderate Growth 2+ Enterobacter cloacae complex Comment: This isolate has been identified using the FDA Approved Caustic Graphicsyper CA System The organism value for this result has been updated. These results have been appended to the previously preliminary verified report. Edited result: Previously reported as Gram Negative Jesus on 11/07/2024 at 1434 EDT. 2+ Streptococcus mitis/oralis group Comment: This isolate has been identified using the FDA Approved MALDI SiftyNetyper CA System The organism value for this result has been updated. These results have been appended to the previously preliminary verified report. 2+ Pasteurella stomatis Comment: This result was determined by MALDI tof mass spectrometry using the Hepa Wash database and is for research use only. [...] stewardship team. Comprehensive GI Panel by PCR [[id number]] (Normal) Collected: 11/12/24 0950 Order Status: Completed [...] if clinically indicated. Clostridiodes (Clostridium) difficile PCR [[id number]] (Normal) Collected: 11/12/24 0950 Order Status: Completed [...] high complexity clinical laboratory testing. Anaerobic Culture [[id number]] Collected: 11/06/24 1128 Order Status: Completed Specimen: Swab from Other (specify site) Updated: 11/12/24 1118 Culture No growth at day 4 Fungal Culture, Tissue and ISIDRO [[id number]] (Abnormal) Collected: 11/06/24 1134 Order Status: Completed Specimen: Tissue from Other (specify site) Updated: 11/12/24 1033 Culture Reading Mycological 4 Weeks [place] Sana parapsilosis Comment: This isolate has been identified using the FDA Approved MALDI SiftyNetyper CA System The organism value for this result has been updated. These results have been appended to the previously preliminary verified report. Edited result: Previously reported as Yeast on 11/11/2024 at 1317 EDT. ISIDRO No fungal elements seen Additional Susceptibilities and/or Identification [[id number]] Collected: 11/11/24 1240 Order Status: Completed Specimen: Tissue from Wound (specify site): Additional Susceptibilities and/or Identification [[id number]] Collected: 11/11/24 1238 Order Status: Completed Specimen: Tissue from Wound (specify site): Additional Susceptibilities and/or Identification [[id number]] Collected: 11/11/24 1237 Order Status: Completed Specimen: Tissue from Wound (specify site): AFB Culture, Non Respiratory Source and Acid Fast Stain [[id number]] Collected: 11/06/24 1134 Order Status: Completed Specimen: Tissue from Other (specify site) Updated: 11/11/24 0938 AFB Culture No Mycobacterial Growth <1 Week Acid Fast Stain No acid fast bacilli seen Blood Culture (Aerobic/Anaerobet Set) [[id number]] Collected: 11/06/24106 Order Status: Completed Specimen: Blood from AC, Left Updated: 11/11/24 0301 Culture No growth at day 5 Blood Culture (Aerobic/Anaerobet Set) [[id number]] Collected: 11/06/24106 Order Status: Completed Specimen: Blood [...] to stay a facility, plan for [facility] daily IV abx. Plan [...] tablet 1,000 mg 1,[address] [facility] Anthony Reyes MD 1,000 mg at [...] mg 10 mg Oral q6h PRN Anthony Reeys MD 10 mg at 11/13/24 0836 Povidone-Iodine [...] Prevent or Manage Pain Flowsheets (Taken 11/11/2024 8138 by Jonathan Vale RN) Sensory Stimulation Regulation: care clustered lighting decreased quiet environment promoted Medication Review/Management: medications reviewed * Consults - Anabel Ovalle RD - 11/12/2024 9:59 AM EDT Adult Nutrition Evaluation Note Bev Borja 64 y.o. male CSN: [id number] Room/Bed 682/682B Nutrition evaluation type: assessment Reason for evaluation: LOS Hospital course: 64 y.o. male with PMHx significant for COPD, CAD s/p PCI (on Xarelto) s/p pacemaker c/b left SANDIP pseudoaneurysm s/p thrombin injection 09/21/24, chronic limb ischemia s/p left femoralendarterectomy with external iliac/common femoral artery stenting 10/17/24, T2DM, HLD, HTN, RLS who presented to the [facility] on 11/05/2024 with problems with [...] (Room air) O2 Delivery Method: Face tent [place] Coma Scale Score: 15 Loi Scale Score: [...] (194 lb 3.6 oz) BMI (Calculated): 30.41 [place] Body Weight (kg): 67.3 Percent [place] Body Weight: 131 Adjusted Body Weight (kg): [...] oz) Estimated Needs: Kcal/ K-30 Kcal Provided: 9726-7961 Kcal Needs Based On: Adjusted weight Gm Protein/ Kg : 1.2-1.5 Protein Provided: 87-108 Protein Needs Based On: Adjusted weight Metabolic Cart Study Results: Current Nutrition Intake: Diet Order: Adult Diet Diet Texture: Regular Adult Carbohydrate Restriction: Consistent CHO 1 (6580-3114 Jatinder, 65 g/meal) Percent Meals Eaten (%): [...] ENDARTERECTOMY N/A 2017 Endarterectomy Carotid Artery from [employer] CORONARY ANGIOPLASTY Left Coronary Angiography With Concomitant Left Heart Catheterization from [employer] CORONARY ARTERY BYPASS GRAFT N/A 2018 3V ELBOW SURGERY Right ENDARTERECTOMY Left 10/17/2024 common/SFA/Profunda thromboendarterectomy, EIA/MECHANICAL INTEGRITY SPECIALIST stent HERNIA REPAIR KNEE ARTHROSCOPY Left VASCULAR SURGERY Left 09/21/2024 MECHANICAL INTEGRITY SPECIALIST pseudoaneurym injection [3] Social History Tobacco [...] sodium chloride * Progress Notes - Reid Dnaiels MD - 11/12/2024 9:04 AM EDT Images from the original note were not included. [facility] Department of Surgery Division of Vascular Surgery Surgery Progress Note 11/12/24 Bev Perez Cristoferkeo Subjective Subjective: HPI 64yoM PMHx COPD, T2DM, HLD, HTN, RLS, CAD s/p PCI (on Xarelto) s/p pacemaker c/b left SANDIP pseudoaneurysm s/p thrombin injection 09/21/24, CLI s/p left femoral endarterectomy with EIA/MECHANICAL INTEGRITY SPECIALIST stenting 10/17/24, [facility] 09/21/24, CLI s/p left femoral endarterectomy with EIA/MECHANICAL INTEGRITY SPECIALIST stenting 10/17/24, [facility] [...] the findings. Cardiac Device Check - PRE-OR [facility] EP-Device Clinic: Pre-operative CIED Report Assessment and Sara-Procedural Reommendations: Name: Bev Borja Date: 10/17/2024 : 1960 Age: 64 y.o. Patient has a Engine Monitor: Site Tour DISTILLATION OPERATOR-PM Remaining battery longevity adequate. Lead integrity [...] recommendations. Supporting reports can be found in Vadio media file. Micro: Susceptibility data from last [...] Units Date/Time Tissue Culture and Gram Stain [[id number]] (Abnormal) (Susceptibility) Collected: 11/06/24 1134 Order Status: Completed Specimen: Tissue from Other (specify site) Updated: 11/12/24 1334 Culture Moderate Growth 2+ Enterobacter cloacae complex Comment: This isolate has been identified using the FDA Approved Hepa Washer CA System The organism value for this result has been updated. These results have been appended to the previously preliminary verified report. Edited result: Previously reported as Gram Negative Jesus on 11/07/2024 at 1434 EDT. 2+ Streptococcus mitis/oralis group Comment: This isolate has been identified using the FDA Approved Hepa Washer CA System The organism value for this result has been updated. These results have been appended to the previously preliminary verified report. 2+ Pasteurella stomatis Comment: This result was determined by MALDI tof mass spectrometry using the Hepa Wash database and is for research use only. [...] stewardship team. Comprehensive GI Panel by PCR [[id number]] (Normal) Collected: 11/12/24 0950 Order Status: Completed [...] if clinically indicated. Clostridiodes (Clostridium) difficile PCR [[id number]] (Normal) Collected: 11/12/24 0950 Order Status: Completed [...] high complexity clinical laboratory testing. Anaerobic Culture [[id number]] Collected: 11/06/24 1128 Order Status: Completed Specimen: Swab from Other (specify site) Updated: 11/12/24 1118 Culture No growth at day 4 Fungal Culture, Tissue and ISIDRO [[id number]] (Abnormal) Collected: 11/06/24 1134 Order Status: Completed Specimen: Tissue from Other (specify site) Updated: 11/12/24 1033 Culture Reading Mycological 4 Weeks Rare [place] Sana parapsilosis Comment: This isolate has been identified using the FDA Approved Caustic Graphicsyper CA System The organism value for this result has been updated. These results have been appended to the previously preliminary verified report. Edited result: Previously reported as Yeast on 11/11/2024 at 1317 EDT. ISIDRO No fungal elements seen Additional Susceptibilities and/or Identification [[id number]] Collected: 11/11/24 1240 Order Status: Completed Specimen: Tissue from Wound (specify site): Additional Susceptibilities and/or Identification [[id number]] Collected: 11/11/24 1238 Order Status: Completed Specimen: Tissue from Wound (specify site): Additional Susceptibilities and/or Identification [[id number]] Collected: 11/11/24 1237 Order Status: Completed Specimen: Tissue from Wound (specify site): AFB Culture, Non Respiratory Source and Acid Fast Stain [[id number]] Collected: 11/06/24 1134 Order Status: Completed Specimen: Tissue from Other (specify site) Updated: 11/11/24 0938 AFB Culture No Mycobacterial Growth <1 Week Acid Fast Stain No acid fast bacilli seen Blood Culture (Aerobic/Anaerobet Set) [[id number]] Collected: 11/06/24106 Order Status: Completed Specimen: Blood from AC, Left Updated: 11/11/24 0301 Culture No growth at day 5 Blood Culture (Aerobic/Anaerobet Set) [[id number]] Collected: 11/06/24106 Order Status: Completed Specimen: Blood [...] 11/06, pt went to the [facility] vascular surgery for left groin exploration and [...] tablet 1,000 mg 1,[address] [facility] Anthony Reyes MD 1,000 mg at 11/12/24 1356 aspirin chewable tablet 81 mg 81 mg Oral Daily Reid Daniels MD 81 mg at 11/12/24 0938 cefepime (Maxipime) 2 g in sodium chloride 0.9% 100 mL IVPB (vial adapter required) 2 g [id number] Redi Daniels MD 36.7 mL/hr at 11/12/24 1356 [...] PM Anthony Reyes MD 0.4 mg at [id number] Vancomycin HCl in NaCl (Vancocin) IVPB 1,000 [...] send him home on micafungin as Rare [place]ound Sana parapsilosis grew and we do not [...] RN Outcome: Ongoing, Progressing 11/11/2024 233 by oJnathan Vale RN Outcome: Ongoing, Progressing Intervention: Optimize [...] Note Bev Borja 64 y.o. male CSN: [id number] Admission: 11/05/2024 9:45 PM Primary Problem: Wound infection Patient refusing inpatient placement for IV abx. [facility] infusion clinic can provide treatment. Face sheet, IV abx orders, and order for PICC care/labs/dressing changes need to be faxed to [phone]. Voicemail left with wound care clinic. Wound vac approved per , delivery pending. Crysll continue to follow. Mariia Monterroso COMMERCIAL REAL ESTATE SALES MANAGER * Progress Notes - Dotty Sethi [...] the findings. Cardiac Device Check - PRE-OR [facility] EP-Device Clinic: Pre-operative CIED Report Assessment and Sara-Procedural Reommendations: Name: Bev Borja Date: 10/17/2024 : 1960 Age: 64 y.o. Patient has a Engine Monitor: Berger DISTILLATION OPERATOR-PM Remaining battery longevity adequate. Lead integrity [...] recommendations. Supporting reports can be found in Vadio media file. Micro: Susceptibility data from last [...] Non Respiratory Source and Acid Fast Stain [[id number]] Collected: 11/06/24 1134 Order Status: Completed Specimen: Tissue from Other (specify site) Updated: 11/11/24 0938 AFB Culture No Mycobacterial Growth <1 Week Acid Fast Stain No acid fast bacilli seen Blood Culture (Aerobic/Anaerobet Set) [[id number]] Collected: 11/06/24106 Order Status: Completed Specimen: Blood from AC, Left Updated: 11/11/24 0301 Culture No growth at day 5 Blood Culture (Aerobic/Anaerobet Set) [[id number]] Collected: 11/06/24 010 Order Status: Completed Specimen: Blood from Hand, Right Updated: 11/11/24 0249 Culture No growth at day 5 Anaerobic Culture [[id number]] Collected: 11/06/24 1128 Order Status: Completed Specimen: Swab from Other (specify site) Updated: 11/10/24 1441 Culture No growth at day 4 Routine Culture and Gram Stain [[id number]] Collected: 11/06/24 1128 Order Status: Completed Specimen: Swab from Other (specify site) Updated: 11/10/24 1124 Culture No growth at day 4 Gram Stain Result No organisms seen No polymorphonuclear leukocytes seen Anaerobic Culture [[id number]] (Abnormal) Collected: 11/06/24 112 Order Status: Completed Specimen: Swab from Other (specify site) Updated: 11/10/24 0718 Culture No anaerobes isolated Mixed skin clifton Comment: The organism value for this result has been updated. These results have been appended to the previously preliminary verified report. Narrative: Mixed Skin [place] includes Streptococcus mitis/oralis group and Staphylococcus Pseudintermedius Anaerobic Culture [[id number]] (Abnormal) Collected: 11/06/24 1134 Order Status: Completed [...] mL IVPB (vial adapter required) 2 g [id number] Reid Daniels MD 36.7 mL/hr at 11/11/24 [...] PM Anthony Reyes MD 0.4 mg at [id number] Vancomycin HCl in NaCl (Vancocin) IVPB 1,000 [...] original note were not included. [facility] Department of Surgery Division of Vascular Surgery Surgery Progress Note 11/11/24 Bev Borja Subjective Subjective: HPI 64yoM PMHx COPD, T2DM, HLD, HTN, RLS, CAD s/p PCI (on Xarelto) s/p pacemaker c/b left SANDIP pseudoaneurysm s/p thrombin injection 09/21/24, CLI s/p left femoral endarterectomy with EIA/MECHANICAL INTEGRITY SPECIALIST stenting 10/17/24, [facility] 09/21/24, CLI s/p left femoral endarterectomy with EIA/MECHANICAL INTEGRITY SPECIALIST stenting 10/17/24, [facility] [...] 09/21/24, CLI s/p left femoral endarterectomy with EIA/MECHANICAL INTEGRITY SPECIALIST stenting 10/17/24, [facility] [...] 09/21/24, CLI s/p left femoral endarterectomy with EIA/MECHANICAL INTEGRITY SPECIALIST stenting 10/17/24, 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 [...] 09/21/24, CLI s/p left femoral endarterectomy with EIA/MECHANICAL INTEGRITY SPECIALIST stenting 10/17/24, [facility] [...] Level of Care [place] M4 student [facility] Cosigned by Nathaly Nowak MD at 11/11/2024 [...] session. Patient reports he went to [facility] 12th floor via w/c yesterday to [...] Ambulatory- community (was utilizing scooter at [facility] [employer] since discharge) Mobility [place]: Independent gait with device History of Falls: [...] Mobility Bed Mobility Exam: Scooting/Bridging Level of [place]: Modified independence Bed Mobility Exam: Supine to Sit Level of [place]: Modified [place] Transfers Transfer Exam: Sit to stand Level of [place]: Modified independence Assistive Device: Rollator Transfer Exam: Stand to Sit Level of [place]: Modified independence Assistive Device: Rollator Ambulation Device: [...] maintain/improve functional mobility and endurance. Standardized Assessments [facility] 6-Clicks Mobility Assessment Difficulty patient has [...] Ambulatory- community (was utilizing scooter at [employer] since discharge) Mobility [place] Independent gait with device History of Falls [...] distal to knee) BED MOBILITY Level of [place] Physical/Non-physical Assist Adaptive Equipment Utilized Scooting/ Bridging Modified independence Supine to Sit Modified [place] TRANSFERS Level of [place] Physical/Non-physical Assist Adaptive Equipment Utilized Sit to Stand Modified independence Rollator Stand to sit Modified independence Rollator Toilet Transfer Modified independence Grab bar FUNCTIONAL MOBILITY Ambulation Modified independent 200ft x2 with seated rest break between bouts; RPE 5-7/10. Cues forsafety with rollator brakes. Rollator Comments BALANCE Postural Appearance Posture: Within Functional Limits Level of [place] Balance Support Static Sit Independent Feet supported Dynamic Sit Independent Feet supported Static Stand Independent Right upper extremity support, Left upper extremity support (via rollator) Dynamic Stand Independent Right upper extremity support, Left upper extremity support (via rollator) STANDARDIZED ASSESSMENTS [facility] 6-Click Daily Activities Help [...] needed areas of treatment space. Level of [place] Interventions Grooming Modified independent Standing sinkside Pt [...] Note Bev Borja 64 y.o. male CSN: [id number] Admission: 11/05/2024 9:45 PM Primary Problem: Wound [...] follow and assist as needed. Mariia Monterroso COMMERCIAL REAL ESTATE SALES MANAGER * Progress Notes - Bianca Knight [...] to follow, Submitted by: Bianca Knight, ElizabethD, [facility] 11/08/2024 11:15 AM * Progress Notes - Melecio Echevarria DO - 11/08/2024 7:18 AM EDT Images from the original note were not included. [facility] Department of Surgery Division of Vascular Surgery Surgery Progress Note 11/08/24 Bev Borja Subjective Subjective: HPI 64yoM PMHx COPD, T2DM, HLD, HTN, RLS, CAD s/p PCI (on Xarelto) s/p pacemaker c/b left SANDIP pseudoaneurysm s/p thrombin injection 09/21/24, CLI s/p left femoral endarterectomy with EIA/MECHANICAL INTEGRITY SPECIALIST stenting 10/17/24, [facility] [...] completed 10/19 Pseudoaneurysm of left femoral artery ([facility]) COPD (chronic obstructive pulmonary disease) ([facility]) Overview Signed 10/18/2021 7:30 PM by Gallo Gallardo MD Not on home inhalers A-fib ([facility]) Overview Addendum 10/19/2021 10:39 AM by Giovanna Junior APRN Hold anticoagulation Metoprolol restarted BPH (benign prostatic hyperplasia) Overview Addendum 10/19/2021 10:41 AM by Giovanna Junior APRN Flomax restarted Subarachnoid hemorrhage ([facility]) Overview Addendum 10/20/2021 8:23 AM by Giovanna Junior APRN Left frontal, right occipital NSGY consulted - Repeat CTH showing slight worsening of tSAH - no need for further imaging, will continue to follow clinically 10/20: spoke with NSGY via phone and stated to hold ASA and Xarelto for 2 weeks Closed compression fracture of L3 lumbar vertebra, initial encounter ([facility]) Overview Signed 10/18/2021 7:35 PM [...] 09/21/24, CLI s/p left femoral endarterectomy with EIA/MECHANICAL INTEGRITY SPECIALIST stenting 10/17/24, [facility] 1960 Age: 64 y.o. Patient has a Engine Monitor: Site Tour DISTILLATION OPERATOR-PM Remaining battery longevity adequate. Lead integrity [...] recommendations. Supporting reports can be found in [employer] media file. Micro: Susceptibility data from last 90 days. Collected Specimen Info Organism 11/06/24 Tissue from Other (specify site) Gram Negative Jesus 11/06/24 Swab from Other (specify site) Enterobacter cloacae complex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 Detected 11/12/2024 11:54 AM EDT [facility] [address] [place] [address] * Comprehensive GI Panel by PCR (11/12/2024 [...] [facility] [address] [place] [address] * C-reactive protein (11/12/2024 9:48 AM EDT) [...] ORDERABLES Final Resu lt Performing Organization Address City/[facility]/ZIP Co de Phone Number [facility] [address] [place] [address] * (ABNORMAL) POCT glucose meter (11/12/2024 8:20 [...] Comment 11/12/2024 8:21 AM EDT [facility] Signing Agent ID Wade Feliciano Tobias 8:21 AM EDT [facility]ALTH[facility]ARE LAB Device ID [id number] 11/12/2024 8:21 AM EDT [facility] Specimen Type POC Capillary 11/12/2024 8:21 AM EDT [facility] Blood Capillary blood specimen / Unknown 11/12/2024 8:20 AM EDT 11/12/2024 8:21 AM EDT us Nathaly Nowak MD LAB POINT OF CARE TE ST DOCKED DEVICE UNSOLICITED RESULTS Final Result Performing Organization Address City/[facility]/ZIP Co de Phone Number [facility] [address] [place] [address] * (ABNORMAL) POCT glucose meter (11/11/2024 8:18 PM EDT) Pathologist [facility] POCT Glucose 248(H) 74 - 99 mg/dL [...] Comment 11/11/2024 8:20 PM EDT [facility] Signing Agent ID Nelda Gerber 11/12/19 8:20 PM EDT [facility] LAB Device ID [id number] 11/11/2024 8:20 PM EDT [facility] Specimen Type POC Capillary 11/11/2024 8:20 PM EDT [facility] Blood Capillary blood specimen / Unknown 11/11/2024 8:18 PM EDT 11/11/2024 8:20 PM EDT us Nathaly Nowak MD LAB POINT OF CARE TE ST DOCKED DEVICE UNSOLICITED RESULTS Final Result Performing Organization Address City/State/[facility] Co de Phone Number [facility] [address] [place] [address] * (ABNORMAL) POCT glucose meter (11/11/2024 5:59 PM EDT) [facility] POCT Glucose 147(H) 74 - 99 [...] 11/11/2024 6:01 PM EDT [facility] Signing Agent ID BradenWade 6:01 PM EDT [facility] LAB Device ID [id number] 11/11/2024 6:01 PM EDT [facility] Specimen Type POC Capillary 11/11/2024 6:01 PM EDT [facility] Blood Capillary blood specimen / Unknown 11/11/2024 5:59 PM EDT 11/11/2024 6:01 PM EDT Nathaly Nowak MD LAB POINT OF CARE TE ST DOCKED DEVICE UNSOLICITED RESULTS Final Result Performing Organization Address [facility] Co de Phone Number [facility] [address] [place] [address] * POCT glucose meter (11/11/2024 5:20 PM EDT) [facility] POCT Glucose 84 74 - 99 mg/dL [...] 11/11/2024 5:22 PM EDT [facility] Signing Agent ID Wade Feliciano 5:22 PM EDT [facility] Device ID [id number] 11/11/2024 5:22 PM EDT [facility] Specimen Type POC Capillary 11/11/2024 5:22 PM EDT [facility] Blood Capillary blood specimen / Unknown 11/11/2024 5:20 PM EDT 11/11/2024 5:22 PM EDT us Nathaly Nowak MD LAB POINT OF CARE TE ST DOCKED DEVICE UNSOLICITED RESULTS Final Result Performing Organization Address City/[facility] Co de Phone Number [facility] [address] [place] [address] * DC NEGATIVE PRESSURE WOUND THERAPY DME [...] Comment 11/11/2024 12:10 PM EDT [facility] Signing Agent ID BradenWade 12:10 PM EDT [facility] LAB Device ID [id number] 11/11/2024 12:10 PM EDT [facility] Specimen Type POC Capillary 11/11/2024 12:10 PM EDT [facility] Blood Capillary blood specimen / Unknown 11/11/2024 12:08 PM EDT 11/11/2024 12:10 PM EDT Nathaly Nowak MD LAB POINT OF CARE TE ST DOCKED DEVICE UNSOLICITED RESULTS Final Result [facility] [address] [place] [address] * (ABNORMAL) POCT glucose meter (11/11/2024 9:08 [...] 11/11/2024 9:09 AM EDT [facility] Signing Agent ID Wade Feliciano 9:09 AM EDT [facility] Device ID [id number] 11/11/2024 9:09 AM EDT [facility] Specimen Type POC Capillary 11/11/2024 9:09 AM EDT [facility] Blood Capillary blood specimen / Unknown 11/11/2024 9:08 AM EDT 11/11/2024 9:09 AM EDT Nathaly Nowak MD LAB POINT OF CARE TE ST DOCKED DEVICE UNSOLICITED RESULTS Final Result [facility] [address] [place] [address] * POCT glucose meter (11/11/2024 8:27 AM EDT) [facility] POCT Glucose 87 74 - 99 mg/dL [...] 11/11/2024 8:28 AM EDT [facility] Signing Agent ID Wade Feliciano 8:28 AM EDT [facility] Device ID [id number] 11/11/2024 8:28 AM EDT [facility] Specimen Type POC Capillary 11/11/2024 8:28 AM EDT [facility] Blood Capillary blood specimen / Unknown 11/11/2024 8:27 AM EDT 11/11/2024 8:28 AM EDT us Nathaly Nowak MD LAB POINT OF CARE TE ST DOCKED DEVICE UNSOLICITED RESULTS Final Result [facility] [address] [place] [address] * (ABNORMAL) Basic Metabolic Panel, Plasma (11/11/2024 [...] [facility] [address] [place] [address] * (ABNORMAL) CBC W/O Differential (11/11/2024 12:56 [...] LAB BLOOD ORDERABLES Final Resu lt [facility] [address] [place] [address] * (ABNORMAL) POCT glucose meter (11/10/2024 8:25 PM EDT) POCT Glucose 144(H) 74 - 99 mg/dL 11/10/2024 8:28 PM EDT [employer] Comment:Accuracy of a glucos e [...] for testing. Comment 11/10/2024 8:28 PM EDT [facility] Signing Agent ID Nelda Gerber 11/11/19 8:28 PM EDT [facility] Device ID [id number] 11/10/2024 8:28 PM EDT [facility] Specimen Type POC Capillary 11/10/2024 8:28 PM EDT [facility] Blood Capillary blood specimen / Unknown 11/10/2024 8:25 PM EDT 11/10/2024 8:28 PM EDT Nathaly Nowka MD LAB POINT OF CARE TE ST DOCKED DEVICE UNSOLICITED RESULTS Final Result Performing Organization Address City/[facility] Co de Phone Number [facility] [address] [place] [address] * (ABNORMAL) POCT glucose meter (11/10/2024 4:45 [...] Comment 11/10/2024 4:47 PM EDT [facility] Signing Agent ID Esperanza Parks 11/10/2024 4:47 PM EDT [facility] Device ID [id number] 11/10/2024 4:47 PM EDT [facility] LAB Specimen Type POC Capillary 11/10/2024 4:47 PM EDT [facility] Blood Capillary blood specimen / Unknown 11/10/2024 4:45 PM EDT 11/10/2024 4:47 PM EDT Nathaly Nowak MD LAB POINT OF CARE TE ST DOCKED DEVICE UNSOLICITED RESULTS Final Result Performing Organization Address [facility] Co de Phone Number [facility] [address] [place] [address] * (ABNORMAL) POCT glucose meter (11/10/2024 12:13 [...] Comment 11/10/2024 12:14 PM EDT [facility] Signing Agent ID Esperanza Parks 11/10/2024 12:14 PM EDT [facility] Device ID [id number] 11/10/2024 12:14 PM EDT [facility] Specimen Type POC Capillary 11/10/2024 12:14 PM EDT [facility] Blood Capillary blood specimen / Unknown 11/10/2024 12:13 PM EDT 11/10/2024 12:14 PM EDT Nathaly Nowak MD LAB POINT OF CARE TE ST DOCKED DEVICE UNSOLICITED RESULTS Final Result Performing Organization Address City/[facility] Co de Phone Number [facility] [address] [place] [address] * Vancomycin, Peak, Plasma Please draw ~2 hours after 0800 dose of vancomycin finishes infusing. Consider obtaining level via peripheral stick. If peripheral stick is not feasible, please ensure that line is flushed well prior to drawing level. Than... (11/10/2024 10:56 AM EDT) [facility] Vancomycin, Peak, Plasma 23.8 20.0 - 40.0 [...] [facility] [address] [place] [address] * (ABNORMAL) POCT glucose meter (11/10/2024 8:03 AM EDT) [facility] POCT Glucose 174(H) 74 - 99 [...] Comment 11/10/2024 8:04 AM EDT [facility] Signing Agent ID Esperanza Parks 11/10/2024 8:04 AM EDT [facility]ALTH[facility]ARE LAB Device ID [id number] 11/10/2024 8:04 AM EDT [facility] Specimen Type POC Capillary 11/10/2024 8:04 AM EDT [facility] Blood Capillary blood specimen / Unknown 11/10/2024 8:03 AM EDT 11/10/2024 8:04 AM EDT us Nathaly Nowak MD LAB POINT OF CARE TE ST DOCKED DEVICE UNSOLICITED RESULTS Final Result Performing Organization Address City/[facility]/ZIP Co de Phone Number [facility] [address] [place] [address] * Vancomycin, Trough, Plasma Please draw ~30 minutes prior to dose due at 0800 on 11/10. Please do NOThold dose awaiting level to return. Consider obtaining level via peripheral stick. If peripheral stick is not feasible, please ensure that line is... (11/10/2024 7:27 AM EDT) Pathologist [facility] Vancomycin, Trough, Plasma 16.2 10.0 - 20.0 [...] ORDERABLES Final Res ult Performing Organization Address City/[facility]/ZIP Co de Phone Number [facility] [address] [place] [address] * (ABNORMAL) CBC and Differential (11/10/2024 12:31 [...] [facility] [address] [place] [address] * (ABNORMAL) Comprehensive Metabolic Panel, Plasma (11/10/2024 [...] [facility] [address] [place] [address] * (ABNORMAL) POCT glucose meter (11/09/2024 8:04 PM EDT) Pathologist [facility] POCT Glucose 114(H) 74 - 99 mg/dL [...] Comment 11/09/2024 8:06 PM EDT [facility] Signing Agent ID Maximiliano Hansen II 11/09/2024 8:06 PM EDT [facility] LAB Device ID [id number] 11/09/2024 8:06 PM EDT [facility] Specimen Type POC Capillary 11/09/2024 8:06 PM EDT [facility] Blood Capillary blood specimen / Unknown 11/09/2024 8:04 PM EDT 11/09/2024 8:06 PM EDT us Nathaly Nowak MD LAB POINT OF CARE TE ST DOCKED DEVICE UNSOLICITED RESULTS Final Result Performing Organization Address City/State/[facility] Co de Phone Number [facility]ARE LAB [address] [place] [address] * (ABNORMAL) POCT glucose meter (11/09/2024 4:36 [...] Comment 11/09/2024 4:38 PM EDT [facility] Signing Agent ID Kristian Sosa 11/09/2024 4:38 PM EDT [facility] LAB Device ID [id number] 11/09/2024 4:38 PM EDT [facility]ARE LAB Specimen Type POC Capillary 11/09/2024 4:38 PM EDT [facility] Blood Capillary blood specimen / Unknown 11/09/2024 4:36 PM EDT 11/09/2024 4:38 PM EDT us Nathaly Nowak MD LAB POINT OF CARE TE ST DOCKED DEVICE UNSOLICITED RESULTS Final Result [facility] [address] [place] [address] * PICC SINGLE LUMEN (SMARTFORM LINK) (11/09/2024 1:11 PM EDT) Narrative Estefani Barraza RN - 11/09/2024 1:11 PM EDT Estefani Barraza RN 11/09/2024 1:12 PM Insert PICC line Date/Time: 11/09/2024 1:11 PM Performed by: Estefani Barraza RN Authorized by: Nathaly Nowak MD [place] Protocol: Verbal consent obtained?: Yes Written consent [...] selection rationale: Left pacemaker 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[employer] Catheter placed: Single lumen Catheter size: 4 [...] POCT glucose meter (11/09/2024 11:50 AM EDT) [facility] POCT Glucose 127(H) 74 - 99 [...] Comment 11/09/2024 11:51 AM EDT [facility]ALTH[facility]ARE LAB Signing Agent ID Kristian Sosa 11/09/2024 11:51 AM EDT [facility]ALTH[facility]ARE LAB Device ID [id number] 11/09/2024 11:51 AM EDT [facility]ALTH[facility]ARE LAB Specimen Type POC Capillary 11/09/2024 11:51 AM EDT [facility] Blood Capillary blood specimen / Unknown 11/09/2024 11:50 AM EDT 11/09/2024 11:51 AM EDT us Nathaly Nowak MD LAB POINT OF CARE TE ST DOCKED DEVICE UNSOLICITED RESULTS Final Result Performing Organization Address City/State/[facility] Co de Phone Number [facility] [address] [place] [address] * (ABNORMAL) POCT glucose meter (11/09/2024 8:14 AM EDT) [facility] POCT Glucose 153(H) 74 - 99 [...] 11/09/2024 8:15 AM EDT [facility] Signing Agent ID Angeline Sosackary 11/09/2024 8:15 AM EDT [facility] Device ID [id number] 11/09/2024 8:15 AM EDT [facility] Specimen Type POC Capillary 11/09/2024 8:15 AM EDT [facility] Blood Capillary blood specimen / Unknown 11/09/2024 8:14 AM EDT 11/09/2024 8:15 AM EDT us Nathaly Nowak MD LAB POINT OF CARE TE ST DOCKED DEVICE UNSOLICITED RESULTS Final Result [facility] [address] [place] [id number] * (ABNORMAL) CBC and Differential (11/09/2024 4:15 [...] 4:15 AM EDT 11/09/2024 4:18 AM EDT [facility] 11/09/2024 4:26 AM EDT Therapeutic decision making should be based on absolute values, rather than percentages. us Nathaly Nowak MD LAB BLOOD ORDERABLES Final Resu lt [facility] [address] [place] [address] * (ABNORMAL) Comprehensive Metabolic Panel, Plasma (11/09/2024 [...] [facility] [address] [place] [address] * (ABNORMAL) POCT glucose meter (11/09/2024 3:30 [...] Comment 11/09/2024 3:31 AM EDT [facility]ALTH[facility] LAB Signing Agent ID Maximiliano Hansen II 11/09/2024 3:31 AM EDT HEALTH[facility]ARE LAB Device ID [id number] 11/09/2024 3:31 AM EDT [facility] Specimen Type POC Capillary 11/09/2024 3:31 AM EDT [facility] Blood Capillary blood specimen / Unknown 11/09/2024 3:30 AM EDT 11/09/2024 3:31 AM EDT Nathaly Nowak MD LAB POINT OF CARE TE ST DOCKED DEVICE UNSOLICITED RESULTS Final Result Performing Organization Address [facility] Co de Phone Number [facility] [address] [place] [address] * (ABNORMAL) POCT glucose meter (11/08/2024 7:21 PM EDT) Pathologist [facility] POCT Glucose 292(H) 74 - 99 mg/dL [...] Comment 11/08/2024 7:22 PM EDT [facility]ALTH[facility]ARE LAB Signing Agent ID Maximiliano Hansen II 11/08/2024 7:22 PM EDT [facility] Device ID [id number] 11/08/2024 7:22 PM EDT [facility] Specimen Type POC Capillary 11/08/2024 7:22 PM EDT [facility] Blood Capillary blood specimen / Unknown 11/08/2024 7:21 PM EDT 11/08/2024 7:22 PM EDT Nathaly Nowak MD LAB POINT OF CARE TE ST DOCKED DEVICE UNSOLICITED RESULTS Final Result Performing Organization Address City/[facility] Co de Phone Number [facility] [address] [place] [address] * (ABNORMAL) POCT glucose meter (11/08/2024 5:12 PM EDT) Pathologist [facility] POCT Glucose 178(H) 74 - 99 [...] Comment 11/08/2024 5:14 PM EDT [facility]ALTH[facility] LAB Signing Agent ID Estefani Sheth 11/08/2024 5:14 PM EDT [facility] LAB Device ID [id number] 11/08/2024 5:14 PM EDT [facility] LAB Specimen Type POC Capillary 11/08/2024 5:14 PM EDT [facility] Blood Capillary blood specimen / Unknown 11/08/2024 5:12 PM EDT 11/08/2024 5:14 PM EDT Nathaly Nowak MD LAB POINT OF CARE TE ST DOCKED DEVICE UNSOLICITED RESULTS Final Result Performing Organization Address [facility] de Phone Number [facility]ALTHCARE LAB [address] [place] [address] * (ABNORMAL) POCT glucose meter (11/08/2024 12:03 [...] Comment 11/08/2024 12:05 PM EDT [facility] LAB Signing Agent ID Estefani Sheth 11/08/2024 12:05 PM EDT [facility]ALTH[facility]ARE LAB Device ID [id number] 11/08/2024 12:05 PM EDT [facility] LAB Specimen Type POC Capillary 11/08/2024 12:05 PM EDT [facility] Blood Capillary blood specimen / Unknown 11/08/2024 12:03 PM EDT 11/08/2024 12:05 PM EDT Nathaly Nowak MD LAB POINT OF CARE TE ST DOCKED DEVICE UNSOLICITED RESULTS Final Result Performing Organization Address City/[facility] Co de Phone Number [facility] [address] [place] [address] * Vancomycin, Peak, Plasma Please draw ~2 hours after 11/08 0600 dose of vancomycin finishes infusing.Consider obtaining level via peripheral stick. If peripheral stick is not feasible, please ensure that line is flushed well prior to drawing level.... (11/08/2024 9:24 AM EDT) [facility] Vancomycin, Peak, Plasma 29.1 20.0 - 40.0 ug/mL 11/08/2024 10:31 AM EDT [facility] Blood Venous blood specimen / Unknown Venipuncture / Unknown 11/08/2024 9:24 AM EDT 11/08/2024 9:47 AM EDT Narrative [facility] - 11/08/2024 10:31 AM EDT Therapeutic Peak level: 20-40ug/mL Supra-therapeutic Peak level: >40 ug/mL Nathaly Nowak MD LAB BLOOD [place] [address] * (ABNORMAL) POCT glucose meter (11/08/2024 8:00 AM EDT) [facility] POCT Glucose 150(H) 74 - 99 [...] Comment 11/08/2024 8:01 AM EDT HEALTHCARE LAB Signing Agent ID Estefani Sheth 11/08/2024 8:01 AM EDT HEALTHCARE LAB Device ID [id number] 11/08/2024 8:01 AM EDT [facility]ALTH[facility]ARE LAB Specimen Type POC Capillary 11/08/2024 8:01 AM EDT [facility] Blood Capillary blood specimen / Unknown 11/08/2024 8:00 AM EDT 11/08/2024 8:01 AM EDT us Nathaly Nowak MD LAB POINT OF CARE TE ST DOCKED DEVICE UNSOLICITED RESULTS Final Result [facility] [address] [place] [address] * (ABNORMAL) CBC and Differential (11/08/2024 4:39 [...] 4:39 AM EDT 11/08/2024 4:49 AM EDT [facility] - 11/08/2024 4:58 AM EDT Therapeutic decision making should be based on absolute values, rather than percentages. us Nathaly Nowak MD LAB BLOOD ORDERABLES Final Resu lt [facility] [address] [place] [address] * (ABNORMAL) Comprehensive Metabolic Panel, Plasma (11/08/2024 [...] ORDERABLES Final Resu lt Performing Organization Address City/[facility]/ZIP Co de Phone Number [facility] [address] [place] [address] * Vancomycin, Trough, Plasma Please draw ~30 minutes prior to dose due at 0600 on 11/08. Please do NOThold dose awaiting level to return. Consider obtaining level via peripheral stick. If peripheral stick is not feasible, please ensure that line is... (11/08/2024 4:39 AM EDT) Vancomycin, Trough, Plasma 18.7 10.0 - 20.0 ug/mL 11/08/2024 5:22 AM EDT [facility] Blood Venous blood specimen / Unknown Venipuncture / Unknown 11/08/2024 4:39 AM EDT 11/08/2024 4:43 AM EDT Narrative [facility] - 11/08/2024 5:22 AM EDT Therapeutic Trough level: 10-20ug/mL Supra-therapeutic Trough level: >20 ug/mL us Nathaly Nowak MD LAB BLOOD ORDERABLES Final Resu lt Performing Organization Address City/[facility]/ZIP Co de Phone Number [facility] [address] [place] [address] * (ABNORMAL) POCT glucose meter (11/07/2024 7:26 [...] Comment 11/07/2024 7:28 PM EDT [facility]ALTH[facility]ARE LAB Signing Agent ID Maximiliano Hansen II 11/07/2024 7:28 PM EDT HEALTHCARE LAB Device ID [id number] 11/07/2024 7:28 PM EDT [facility]ALTH[facility]ARE LAB Specimen Type POC Capillary 11/07/2024 7:28 PM EDT [facility] Blood Capillary blood specimen / Unknown 11/07/2024 7:26 PM EDT 11/07/2024 7:28 PM EDT Nathaly Nowak MD LAB POINT OF CARE TE ST DOCKED DEVICE UNSOLICITED RESULTS Final Result Performing Organization Address City/State/[facility] Co de Phone Number [facility]ARE LAB [address] [place] [address] * (ABNORMAL) POCT glucose meter (11/07/2024 5:51 PM EDT) [facility] POCT Glucose 183(H) 74 - 99 [...] 11/07/2024 5:52 PM EDT [facility] Signing Agent ID Brigitte Castellon 11/07/2024 5:52 PM EDT [facility]ALTH[facility]ARE LAB Device ID [id number] 11/07/2024 5:52 PM EDT [facility]ALTH[facility]ARE LAB Specimen Type POC Capillary 11/07/2024 5:52 PM EDT [facility] Blood Capillary blood specimen / Unknown 11/07/2024 5:51 PM EDT 11/07/2024 5:52 PM EDT Nathaly Nowak MD LAB POINT OF CARE TE ST DOCKED DEVICE UNSOLICITED RESULTS Final Result Performing Organization Address City/[facility] Co de Phone Number [facility] [address] [place] [address] * (ABNORMAL) POCT glucose meter (11/07/2024 4:47 PM EDT) Pathologist [facility] POCT Glucose 162(H) 74 - 99 [...] for testing. Comment 11/07/2024 4:48 PM EDT [facility] Signing Agent ID Estefani Sheth 11/07/2024 4:48 PM EDT [facility] Device ID [id number] 11/07/2024 4:48 PM EDT [facility] Specimen Type POC Capillary 11/07/2024 4:48 PM EDT [facility] Blood Capillary blood specimen / Unknown 11/07/2024 4:47 PM EDT 11/07/2024 4:48 PM EDT Nathaly Nowak MD LAB POINT OF CARE TE ST DOCKED DEVICE UNSOLICITED RESULTS Final Result Performing Organization Address City/[facility] Co de Phone Number [facility] [address] [place] [address] * (ABNORMAL) POCT glucose meter (11/07/2024 12:22 PM EDT) Pathologist [facility] POCT Glucose 172(H) 74 - 99 [...] Comment 11/07/2024 12:24 PM EDT [facility]ALTH[facility]ARE LAB Signing Agent ID Estefani Sheth 11/07/2024 12:24 PM EDT HEALTHCARE LAB Device ID [id number] 11/07/2024 12:24 PM EDT [facility]ALTH[facility]ARE LAB Specimen Type POC Capillary 11/07/2024 12:24 PM EDT [facility] Blood Capillary blood specimen / Unknown 11/07/2024 12:22 PM EDT 11/07/2024 12:24 PM EDT us Nathaly Nowak MD LAB POINT OF CARE TE ST DOCKED DEVICE UNSOLICITED RESULTS Final Result [facility] [address] [place] [id number] * (ABNORMAL) CBC and Differential (11/07/2024 11:37 AM EDT) [facility] WBC Count 9.96 3.70 - 10.30 [...] [facility] [address] [place] [address] * (ABNORMAL) Comprehensive Metabolic Panel, Plasma (11/07/2024 11:37 AM EDT) Glucose, Plasma 173(H) 74 - 99 mg/dL 11/07/2024 1:31 PM EDT [facility] BUN, Plasma 13 8 - 23 mg/dL 11/07/2024 1:31 PM EDT [facility] Creatinine, Plasma 0.92 0.70 - 1.20 mg/dL 11/07/2024 1:31 PM EDT [facility] BUN/Creatinine Ratio 14 11/07/2024 1:31 PM EDT [facility] [address] [place] [address] * Type and Screen (11/07/2024 11:37 AM [...] ORDERABLES F inal Result Performing Organization Address City/[facility]/ZIP Co de Phone Number BLOOD BANK [address] [place] [address], * (ABNORMAL) POCT glucose meter (11/07/2024 10:34 AM EDT) Pathologist [facility] POCT Glucose 199(H) 74 - 99 mg/dL [...] Comment 11/07/2024 10:36 AM EDT HEALTHCARE LAB Signing Agent ID Joy Iraheta 11/07/2024 10:36 AM EDT [facility] Device ID [id number] 11/07/2024 10:36 AM EDT [facility] Specimen Type POC Capillary 11/07/2024 10:36 AM EDT [facility] Blood Capillary blood specimen / Unknown 11/07/2024 10:34 AM EDT 11/07/2024 10:36 AM EDT Nathaly Nowak MD LAB POINT OF CARE TE ST DOCKED DEVICE UNSOLICITED RESULTS Final Result Performing Organization Address [facility] Co de Phone Number [facility] [address] [place] [address] * (ABNORMAL) POCT glucose meter (11/07/2024 9:34 [...] Comment 11/07/2024 9:36 AM EDT HEALTHCARE LAB Signing Agent ID Brigitte Castellon 11/07/2024 9:36 AM EDT HEALTHCARE LAB Device ID [id number] 11/07/2024 9:36 AM EDT [facility]ALTH[facility]ARE LAB Specimen Type POC Capillary 11/07/2024 9:36 AM EDT [facility]ALTH[facility]ARE LAB Blood Capillary blood specimen / Unknown 11/07/2024 9:34 AM EDT 11/07/2024 9:36 AM EDT Nathaly Nowak MD LAB POINT OF CARE TE ST DOCKED DEVICE UNSOLICITED RESULTS Final Result Performing Organization Address City/[facility] Co de Phone Number [facility] [address] [place] [address] * (ABNORMAL) POCT glucose meter (11/07/2024 8:20 AM EDT) [facility] POCT Glucose 137(H) 74 - 99 [...] Comment 11/07/2024 8:22 AM EDT HEALTHCARE LAB Signing Agent ID Estefani Sheth 11/07/2024 8:22 AM EDT HEALTHCARE LAB Device ID [id number] 11/07/2024 8:22 AM EDT [facility]ALTHCARE LAB Specimen Type POC Capillary 11/07/2024 8:22 AM EDT HEALTH[facility]ARE LAB Blood Capillary blood specimen / Unknown 11/07/2024 8:20 AM EDT 11/07/2024 8:22 AM EDT us Nathaly Nowak MD LAB POINT OF CARE TE ST DOCKED DEVICE UNSOLICITED RESULTS Final Result Performing Organization Address City/[facility]/ZIP Co de Phone Number [facility] [address] [place] [address] * (ABNORMAL) POCT glucose meter (11/07/2024 7:21 AM EDT) [facility] POCT Glucose 151(H) 74 - 99 mg/dL [...] Comment 11/07/2024 7:22 AM EDT HEALTHCARE LAB Signing Agent ID Brigitte Castellon 11/07/2024 7:22 AM EDT HEALTHCARE LAB Device ID [id number] 11/07/2024 7:22 AM EDT HEALTHCARE LAB Specimen Type POC Capillary 11/07/2024 7:22 AM EDT [facility]ALTH[facility]ARE LAB Blood Capillary blood specimen / Unknown 11/07/2024 7:21 AM EDT 11/07/2024 7:22 AM EDT Nathaly Nowak MD LAB POINT OF CARE TE ST DOCKED DEVICE UNSOLICITED RESULTS Final Result Performing Organization Address City/State/[facility] Co de Phone Number HEALTHCARE LAB [address] [place] [address] * (ABNORMAL) POCT glucose meter (11/07/2024 6:25 AM EDT) [facility] POCT Glucose 144(H) 74 - 99 mg/dL [...] 11/07/2024 6:27 AM EDT [facility] Signing Agent ID Nelda Gerber 11/08/19 6:27 AM EDT HEALTHCARE LAB Device ID [id number] 11/07/2024 6:27 AM EDT HEALTHCARE LAB Specimen Type POC Capillary 11/07/2024 6:27 AM EDT [facility]ALTH[facility]ARE LAB Blood Capillary blood specimen / Unknown 11/07/2024 6:25 AM EDT 11/07/2024 6:27 AM EDT Nathaly Nowak MD LAB POINT OF CARE TE ST DOCKED DEVICE UNSOLICITED RESULTS Final Result Performing Organization Address [facility] Co de Phone Number [facility]ALTH[facility]ARE LAB [address] [place] [address] * (ABNORMAL) POCT glucose meter (11/07/2024 5:03 [...] Comment 11/07/2024 5:08 AM EDT [facility]ALTH[facility]ARE LAB Signing Agent ID Nelda Gerber 11/08/19 5:08 AM EDT HEALTHCARE LAB Device ID [id number] 11/07/2024 5:08 AM EDT [facility] Specimen Type POC Capillary 11/07/2024 5:08 AM EDT [facility] Blood Capillary blood specimen / Unknown 11/07/2024 5:03 AM EDT 11/07/2024 5:08 AM EDT Nathaly Nowak MD LAB POINT OF CARE TE ST DOCKED DEVICE UNSOLICITED RESULTS Final Result Performing Organization Address City/[facility] Co de Phone Number [facility] [address] [place] [address] * (ABNORMAL) POCT glucose meter (11/07/2024 4:16 [...] Comment 11/07/2024 4:18 AM EDT HEALTHCARE LAB Signing Agent ID Nelda Gerber 11/08/19 4:18 AM EDT HEALTHCARE LAB Device ID [id number] 11/07/2024 4:18 AM EDT HEALTHCARE LAB Specimen Type POC Capillary 11/07/2024 4:18 AM EDT [facility]ALTH[facility]ARE LAB Blood Capillary blood specimen / Unknown 11/07/2024 4:16 AM EDT 11/07/2024 4:18 AM EDT Nathaly Nowak MD LAB POINT OF CARE TE ST DOCKED DEVICE UNSOLICITED RESULTS Final Result [facility] [address] [place] [address] * (ABNORMAL) POCT glucose meter (11/07/2024 3:21 AM EDT) [facility] POCT Glucose 141(H) 74 - 99 mg/dL [...] Comment 11/07/2024 3:23 AM EDT HEALTHCARE LAB Signing Agent ID Nelda Gerber 11/08/19 3:23 AM EDT HEALTHCARE LAB Device ID [id number] 11/07/2024 3:23 AM EDT [facility]ALTH[facility]ARE LAB Specimen Type POC Capillary 11/07/2024 3:23 AM EDT [facility]ALTH[facility]ARE LAB Blood Capillary blood specimen / Unknown 11/07/2024 3:21 AM EDT 11/07/2024 3:23 AM EDT Nathaly Nowak MD LAB POINT OF CARE TE ST DOCKED DEVICE UNSOLICITED RESULTS Final Result Performing Organization Address City/[facility] Co de Phone Number [facility] [address] [place] [address] * (ABNORMAL) POCT glucose meter (11/07/2024 2:10 AM EDT) [facility] POCT Glucose 146(H) 74 - 99 [...] Comment 11/07/2024 2:12 AM EDT HEALTHCARE LAB Signing Agent ID Nelda Gerber 11/08/19 2:12 AM EDT [facility] Device ID [id number] 11/07/2024 2:12 AM EDT [facility] Specimen Type POC Capillary 11/07/2024 2:12 AM EDT [facility] Blood Capillary blood specimen / Unknown 11/07/2024 2:10 AM EDT 11/07/2024 2:12 AM EDT Nathaly Nowak MD LAB POINT OF CARE TE ST DOCKED DEVICE UNSOLICITED RESULTS Final Result Performing Organization Address [facility] Co de Phone Number [facility] [address] [place] [address] * (ABNORMAL) POCT glucose meter (11/07/2024 1:08 AM EDT) [facility] POCT Glucose 135(H) 74 - 99 mg/dL [...] 11/07/2024 1:10 AM EDT [facility] Signing Agent ID Nelda Gerber 11/08/19 1:10 AM EDT HEALTHCARE LAB Device ID [id number] 11/07/2024 1:10 AM EDT [facility]ALTH[facility]ARE LAB Specimen Type POC Capillary 11/07/2024 1:10 AM EDT [facility]ALTH[facility]ARE LAB Blood Capillary blood specimen / Unknown 11/07/2024 1:08 AM EDT 11/07/2024 1:10 AM EDT Nathaly Nowak MD LAB POINT OF CARE TE ST DOCKED DEVICE UNSOLICITED RESULTS Final Result Performing Organization Address City/[facility]/ZIP Co de Phone Number [facility]ARE [facility] [address] [place] [address] * (ABNORMAL) POCT glucose meter (11/07/2024 12:10 AM EDT) [facility] POCT Glucose 127(H) 74 - 99 [...] Comment 11/07/2024 12:13 AM EDT HEALTHCARE LAB Signing Agent ID Nelda Gerber 11/08/19 12:13 AM EDT HEALTHCARE LAB Device ID [id number] 11/07/2024 12:13 AM EDT [facility]ALTH[facility]ARE LAB Specimen Type POC Capillary 11/07/2024 12:13 AM EDT [facility]ALTH[facility]ARE LAB Blood Capillary blood specimen / Unknown 11/07/2024 12:10 AM EDT 11/07/2024 12:13 AM EDT Nathaly Nowak MD LAB POINT OF CARE TE ST DOCKED DEVICE UNSOLICITED RESULTS Final Result Performing Organization Address City/[facility]/ZIP Co de Phone Number [facility] [address] [place] [address] * (ABNORMAL) POCT glucose meter (11/06/2024 11:14 [...] Comment 11/06/2024 11:16 PM EDT HEALTHCARE LAB Signing Agent ID Nelda Gerber 11/07/19 11:16 PM EDT HEALTHCARE LAB Device ID [id number] 11/06/2024 11:16 PM EDT HEALTHCARE LAB Specimen Type POC Capillary 11/06/2024 11:16 PM EDT [facility] Blood Capillary blood specimen / Unknown 11/06/2024 11:14 PM EDT 11/06/2024 11:16 PM EDT Nathaly Nowak MD LAB POINT OF CARE TE ST DOCKED DEVICE UNSOLICITED RESULTS Final Result [facility] [address] [place] [address] * (ABNORMAL) POCT glucose meter (11/06/2024 10:07 PM EDT) [facility] POCT Glucose 140(H) 74 - 99 mg/dL [...] Comment 11/06/2024 10:09 PM EDT HEALTHCARE LAB Signing Agent ID Nelda Gerber 11/07/19 10:09 PM EDT HEALTHCARE LAB Device ID [id number] 11/06/2024 10:09 PM EDT [facility]ALTH[facility]ARE LAB Specimen Type POC Capillary 11/06/2024 10:09 PM EDT [facility]ALTH[facility] LAB Blood Capillary blood specimen / Unknown 11/06/2024 10:07 PM EDT 11/06/2024 10:09 PM EDT Nathaly Nowak MD LAB POINT OF CARE TE ST DOCKED DEVICE UNSOLICITED RESULTS Final Result Performing Organization Address [facility] de Phone Number HEALTHCARE LAB [address] [place] [address] * (ABNORMAL) POCT glucose meter (11/06/2024 8:22 PM EDT) [facility] POCT Glucose 256(H) 74 - 99 mg/dL [...] Comment 11/06/2024 8:25 PM EDT [facility]ALTH[facility] LAB Signing Agent ID Nelda Gerber 11/07/19 8:25 PM EDT HEALTHCARE LAB Device ID [id number] 11/06/2024 8:25 PM EDT [facility] Specimen Type POC Capillary 11/06/2024 8:25 PM EDT [facility] Blood Capillary blood specimen / Unknown 11/06/2024 8:22 PM EDT 11/06/2024 8:25 PM EDT Nathaly Nowak MD LAB POINT OF CARE TE ST DOCKED DEVICE UNSOLICITED RESULTS Final Result Performing Organization Address City/[facility] Co de Phone Number [facility] [address] [place] [address] * (ABNORMAL) POCT glucose meter (11/06/2024 7:31 PM EDT) [facility] POCT Glucose 359(H) 74 - 99 mg/dL [...] Comment 11/06/2024 7:32 PM EDT HEALTHCARE LAB Signing Agent ID Nelda Gerber 11/07/19 7:32 PM EDT [facility] Device ID [id number] 11/06/2024 7:32 PM EDT [facility] Specimen Type POC Capillary 11/06/2024 7:32 PM EDT [facility]ALTH[facility]ARE [facility] Blood Capillary blood specimen / Unknown 11/06/2024 7:31 PM EDT 11/06/2024 7:32 PM EDT Nathaly Nowak MD LAB POINT OF CARE TE ST DOCKED DEVICE UNSOLICITED RESULTS Final Result Performing Organization Address City/[facility]/ZIP Co de Phone Number [facility] [address] [place] [address] * (ABNORMAL) POCT glucose meter (11/06/2024 6:15 PM EDT) [facility] POCT Glucose 368(H) 74 - 99 mg/dL [...] Comment 11/06/2024 6:17 PM EDT HEALTHCARE LAB Signing Agent ID Estefani Sheth 11/06/2024 6:17 PM EDT HEALTHCARE LAB Device ID [id number] 11/06/2024 6:17 PM EDT HEALTHCARE LAB Specimen Type POC Capillary 11/06/2024 6:17 PM EDT [facility]ALTH[facility]ARE LAB Blood Capillary blood specimen / Unknown 11/06/2024 6:15 PM EDT 11/06/2024 6:17 PM EDT us Nathaly Nowak MD LAB POINT OF CARE TE ST DOCKED DEVICE UNSOLICITED RESULTS Final Result [facility] [address] [place] [address] * (ABNORMAL) POCT glucose meter (11/06/2024 4:57 PM EDT) [facility] POCT Glucose 417(H) 74 - 99 mg/dL [...] Comment 11/06/2024 4:58 PM EDT HEALTH[facility]ARE [facility] Signing Agent ID Estefani Sheth Chris 11/06/2024 4:58 PM EDT HEALTHCARE LAB Device ID [id number] 11/06/2024 4:58 PM EDT HEALTHCARE LAB Specimen Type POC Capillary 11/06/2024 4:58 PM EDT [facility] Blood Capillary blood specimen / Unknown 11/06/2024 4:57 PM EDT 11/06/2024 4:58 PM EDT Nathaly Nowak MD LAB POINT OF CARE TE ST DOCKED DEVICE UNSOLICITED RESULTS Final Result Performing Organization Address [facility] Co de Phone Number [facility] [address] [place] [address] * (ABNORMAL) POCT glucose meter (11/06/2024 2:08 PM EDT) [facility] POCT Glucose 253(H) 74 - 99 [...] 11/06/2024 2:09 PM EDT [facility] Signing Agent ID Brigtite Castellon 11/06/2024 2:09 PM EDT [facility] Device ID [id number] 11/06/2024 2:09 PM EDT HEALTHCARE LAB Specimen Type POC Capillary 11/06/2024 2:09 PM EDT HEALTH[facility]ARE LAB Blood Capillary blood specimen / Unknown 11/06/2024 2:08 PM EDT 11/06/2024 2:09 PM EDT Nathaly Nowak MD LAB POINT OF CARE TE ST DOCKED DEVICE UNSOLICITED RESULTS Final Result Performing Organization Address City/[facility] Co de Phone Number HEALTHCARE LAB [address] [place] [address] * (ABNORMAL) POCT glucose meter (11/06/2024 12:27 PM EDT) [facility] POCT Glucose 228(H) 74 - 99 [...] Comment 11/06/2024 12:28 PM EDT HEALTHCARE LAB Signing Agent ID Jacinta Galloway 11/06/2024 12:28 PM EDT HEALTHCARE LAB Device ID [id number] 11/06/2024 12:28 PM EDT HEALTHCARE LAB Specimen Type POC Capillary 11/06/2024 12:28 PM EDT HEALTH[facility]ARE LAB Blood Capillary blood specimen / Unknown 11/06/2024 12:27 PM EDT 11/06/2024 12:28 PM EDT us Nathaly Nowak MD LAB POINT OF CARE TE ST DOCKED DEVICE UNSOLICITED RESULTS Final Result Performing Organization Address City/[facility]/ZIP Co de Phone Number HEALTHCARE LAB [address] [place] [address] * (ABNORMAL) Tissue Culture and Gram Stain (11/06/2024 11:34 AM EDT) [facility] Culture Moderate Growth 7:35 AM EDT [facility] Culture 2+ Enterobacter cloacae complex(A) ANGÉLICA 11/15/2024 7:35 AM EDT [facility] Comment: This isolate has been identified using the FDA Approved MALDI SiftyNetyper [place] System The organism value for this [...] by MALDI tof mass spectrometry using the Hepa Wash database and is for research use only. [...] Nowak MD LAB MICROBIOLOGY - GENERAL ORDAna AIXAONEIDA Edited Result - Final [facility] [address] [place] [address] * (ABNORMAL) Anaerobic Culture (11/06/2024 11:34 AM EDT) Culture No anaerobes isolated 11/14/2024 1:25 PM EDT [facility] Culture Staphylococcus pseudintermedius( A) 11/14/2024 1:25 PM EDT [facility] Comment: This result was determined by MALDI tof mass spectrometry using the Hepa Wash database and is for research use only. [...] GENERAL ORDAna FRITZ Edited Result - Final Performing Organization Address [facility]/ZIP Co de Phone Number [facility] [address] [place] [address] * (ABNORMAL) Routine Culture and Gram Stain (11/06/2024 11:29 AM EDT) Culture Moderate Growth 5:29 PM EDT [facility] Culture Enterobacter cloacae complex(A) 11/08/2024 5:29 PM EDT [facility] Comment: This isolate has been identified using the FDA Approved CallYourPrice [place] System For susceptibility results refer to: - [id number] The organism value for this result has [...] FRITZ Final Result Performing Organization Address [facility] Co de Phone Number [facility] [address] [place] [address] * Fungal Culture, Routine (11/06/2024 11:29 AM EDT) Culture No Fungal Growth at 1 Week 11/13/2024 8:29 AM EDT [facility] Swab Topography unknown / Unknown 11/06/2024 11:29 AM EDT 11/06/2024 12:19 PM EDT Comment:Pre-op diagnosis: Surgical wound infection [T81.49XA] Nathaly Nowak MD LAB MICROBIOLOGY - GENERAL ORDAna FRITZ Final Result Performing Organization Address City/[facility]/ZIP Co de Phone Number [facility] [address] [place] [address] * (ABNORMAL) Anaerobic Culture (11/06/2024 11:29 AM EDT) Culture No anaerobes isolated 11/14/2024 1:25 PM EDT [facility] Culture Streptococcus mitis/oralis group(A) 11/14/2024 1:25 PM EDT [facility] Comment: This result was determined by MALDI tof mass spectrometry using the Hepa Wash database and is for research use only. [...] has been identified using the FDA Approved CallYourPrice [place] System This is an appended report. [...] MD LAB MICROBIOLOGY - GENERAL ORDE RABONEIDA Edited Result - Final Performing Organization Address [facility] de Phone Number [facility] [address] [place] [address] * Routine Culture and Gram Stain (11/06/2024 [...] LAM Final Result Performing Organization Address [facility] [place] [address] * Fungal Culture, Routine (11/06/2024 11:28 AM EDT) Culture No Fungal Growth at 1 Week 11/13/2024 8:29 AM EDT [facility] Swab Topography unknown / Unknown 11/06/2024 11:28 AM EDT 11/06/2024 12:20 PM EDT Comment:Pre-op diagnosis: Surgical wound infection [T81.49XA] Nathaly Nowak MD LAB MICROBIOLOGY - GENERAL ORDE LAM Final Result Performing Organization Address [facility] Co de Phone Number [facility] [address] [place] [address] * Anaerobic Culture (11/06/2024 11:28 AM EDT) Culture No growth at day 4 11/13/2024 12:53 PM EDT [facility] Swab Topography unknown / Unknown 11/06/2024 11:28 AM EDT 11/06/2024 12:20 PM EDT Comment:Pre-op diagnosis: Surgical wound infection [T81.49XA] us Nathaly Nowak MD LAB MICROBIOLOGY - [facility] Final Result [facility] [address] [place] [address] * (ABNORMAL) POCT glucose meter (11/06/2024 10:16 [...] Comment 11/06/2024 10:18 AM EDT HEALTHCARE LAB Signing Agent ID Lacy Griffin 11/07/19 25 10:18 AM EDT HEALTHCARE LAB Device ID [id number] 11/06/2024 10:18 AM EDT HEALTHCARE LAB Specimen Type POC Capillary 11/06/2024 10:18 AM EDT HEALTHCARE LAB Blood Capillary blood specimen / Unknown 11/06/2024 10:16 AM EDT 11/06/2024 10:18 AM EDT us Nathaly Nowak MD LAB POINT OF CARE TE ST DOCKED DEVICE UNSOLICITED RESULTS Final Result [facility] [address] [place] [address] * (ABNORMAL) POCT glucose meter (11/06/2024 5:58 AM EDT) [facility] POCT Glucose 182(H) 74 - 99 mg/dL [...] Comment 11/06/2024 6:01 AM EDT HEALTHCARE LAB Signing Agent ID Raj Laird 11/07/19 6:01 AM EDT HEALTHCARE LAB Device ID [id number] 11/06/2024 6:01 AM EDT HEALTHCARE LAB Specimen Type POC Capillary 11/06/2024 6:01 AM EDT HEALTHCARE LAB Blood Capillary blood specimen / Unknown 11/06/2024 5:58 AM EDT 11/06/2024 6:01 AM EDT Nathaly Nowak MD LAB POINT OF CARE TE ST DOCKED DEVICE UNSOLICITED RESULTS Final Result Performing Organization Address City/State/[facility] Co de Phone Number HEALTHCARE LAB [address] [place] [address] * (ABNORMAL) POCT glucose meter (11/06/2024 5:36 AM EDT) [facility] POCT Glucose 202(H) 74 - 99 mg/dL [...] Comment 11/06/2024 5:38 AM EDT HEALTHCARE LAB Signing Agent ID Shahid Sanches 11/06/2024 5:38 AM EDT HEALTHCARE LAB Device ID [id number] 11/06/2024 5:38 AM EDT HEALTHCARE LAB Specimen Type POC Capillary 11/06/2024 5:38 AM EDT [facility] Blood Capillary blood specimen / Unknown 11/06/2024 5:36 AM EDT 11/06/2024 5:38 AM EDT Result [facility] us Nathaly Nowak MD LAB POINT OF CARE TE ST DOCKED DEVICE UNSOLICITED RESULTS Final Result Performing Organization Address City/[facility] de Phone Number [facility] [address] [place] [address] * (ABNORMAL) Hemoglobin A1c (11/06/2024 1:07 AM [...] Adults <6.0% Children and Adolescents <7.5% Source: [place] [employer]. Standards of medical care in diabetes,2017. Diabetes Care.2017:40 (suppl 1):S1-S135. Result [facility] us Nathaly Nowak MD LAB BLOOD ORDERABLES Final Resu lt [facility] [address] [place] [address] * Blood Culture (Aerobic/Anaerobet Set) (11/06/2024 1:07 AM EDT) Culture No growth at day 5 11/11/2024 2:49 AM EDT [facility] Blood Structure of right hand / Unknown Venipuncture / Unknown 11/06/2024 1:07 AM EDT 11/06/2024 2:36 AM EDT us Nathaly Nowak MD LAB MICROBIOLOGY - GENERAL ATIYA FRITZ Final Result [facility] [address] [place] [address] * Blood Culture (Aerobic/Anaerobet Set) (11/06/2024 1:07 AM EDT) Pathologist [facility] Culture No growth at day 5 11/11/2024 3:01 AM EDT [facility] Blood Structure of antecubital vein / Unknown Venipuncture / Unknown 11/06/2024 1:07 AM EDT 11/06/2024 2:36 AM EDT Nathaly Nowak MD LAB MICROBIOLOGY - GENERAL ORDAna FRITZ Final Result Performing Organization Address City/[facility]/ZIP Co de Phone Number [facility] [address] [place] [address] * (ABNORMAL) Basic metabolic panel (11/06/2024 1:07 [...] ORDERABLES Final Resu lt Performing Organization Address [facility]/ZIP Co de Phone Number [facility] [address] [place] [address] * Phosphorus (11/06/2024 1:07 AM EDT) Phosphorus, Plasma 3.2 2.5 - 4.5 mg/dL 11/06/2024 1:41 AM EDT [facility] Blood Venous blood specimen / Unknown Venipuncture / Unknown 11/06/2024 1:07 AM EDT 11/06/2024 1:12 AM EDT Nathaly Nowak MD LAB BLOOD ORDERABLES Final Resu lt Performing Organization Address [facility]/ZIP Co de Phone Number [facility] [address] [place] [address] * Magnesium (11/06/2024 1:07 AM EDT) Magnesium, Plasma 2.2 1.9 - 2.4 mg/dL 11/06/2024 1:41 AM EDT [facility] Blood Venous blood specimen / Unknown Venipuncture / Unknown 11/06/2024 1:07 AM EDT 11/06/2024 1:12 AM EDT us Nathaly Nowak MD LAB BLOOD ORDERABLES Final Resu lt [facility] [address] [place] [address] * (ABNORMAL) CBC (11/06/2024 1:07 AM EDT) [...] [facility] [address] [place] [address] * Gold Top (11/06/2024 12:58 AM EDT) Extra Hold for add-ons 11/06/2024 3:21 AM EDT [facility] Comment:Auto resulted. Blood Venous blood specimen / Unknown 11/06/2024 12:58 AM EDT 11/06/2024 1:13 AM EDT us Nathaly Nowak MD LAB BLOOD ORDERABLES Final Resu lt Performing Organization Address [facility] Co de Phone Number [facility] [address] [place] [address] * Gold Top (11/06/2024 12:58 AM EDT) Extra Hold for add-ons 11/06/2024 3:21 AM EDT [facility] Comment:Auto resulted. Blood Venous blood specimen / Unknown 11/06/2024 12:58 AM EDT 11/06/2024 1:13 AM EDT us Nathaly Nowak MD LAB BLOOD ORDERABLES Final Resu lt Performing Organization Address [facility] [facility] Co de Phone Number [facility] [address] [place] [address] * Light Green Top (11/06/2024 12:58 AM EDT) Extra Hold for add-ons 11/06/2024 3:21 AM EDT [facility] Comment:Auto resulted. Blood Venous blood specimen / Unknown 11/06/2024 12:58 AM EDT 11/06/2024 1:13 AM EDT us Nathaly Nowak MD LAB BLOOD ORDERABLES Final Resu lt Performing Organization Address [facility]/ZIP Co de Phone Number [facility] [address] [place] [address] * Light Blue Top (11/06/2024 12:58 AM EDT) Extra Hold for add-ons 11/06/2024 3:21 AM EDT [facility] Comment:Auto resulted. Blood Venous blood specimen / Unknown 11/06/2024 12:58 AM EDT 11/06/2024 1:13 AM EDT Nathaly Nowak MD LAB BLOOD ORDERABLES Final Resu lt Performing Organization Address [facility]/ZIP Co de Phone Number [facility] [address] [place] [address] * Light Blue Top (11/06/2024 12:58 AM EDT) Extra Hold for add-ons 11/06/2024 3:21 AM EDT [facility] Comment:Auto resulted. Blood Venous blood specimen / Unknown 11/06/2024 12:58 AM EDT 11/06/2024 1:13 AM EDT Nathaly Nowak MD LAB BLOOD ORDERABLES Final Resu lt Performing Organization Address [facility] [place] [address] * (ABNORMAL) POCT glucose meter (11/06/2024 12:45 [...] 11/06/2024 12:48 AM EDT [facility] Signing Agent ID Raj Laird 11/07/19 12:48 AM EDT [facility] Device ID [id number] 11/06/2024 12:48 AM EDT [facility] Specimen Type POC Capillary 11/06/2024 12:48 AM EDT HEALTHC[facility] Blood Capillary blood specimen / Unknown 11/06/2024 12:45 AM EDT 11/06/2024 12:48 AM EDT Nathaly Nowak MD LAB POINT OF CARE TE ST DOCKED DEVICE UNSOLICITED RESULTS Final Result [facility] [address] [place] [address] documented in this encounter Visit Diagnoses Diagnosis [...] Every 12 hours, First dose on [facility] 11/09/24 at 1515, Until Discontinued, Routine [...] Yazmin Bhatt RN)1210 (Given - Provider: Yazmin Bhatt, CHRISTIAN)1730 (Canceled [...] dose on Yadira 11/14/24 at 0900, Routine 0940 (Given - Provider: [...] Vale RN)1156 (Not Given - Provider: Devora Kahn Bo - Reason: Hold for condition: must [...] Routine 0939 (Not Given - Provider: Devora Kahn Bo - Reason: Hold for condition: must [...] Intramuscular, Every 15 min PRN, Starting on Yadira [...] documented as of this encounter Care Teams Cornice Maker Relationship Specialty Start Date End Date Asad Victor MD [address] [phone] PCP - General 10/07/22 documented as of this encounter
--- OUTSIDE RECORDS SUMMARY | 2024-11-06 10:47 | XMS_ITS | Encounter Summary ---
Author Organization Healthcare Address [address] [place] [address] Care Team Providers Care Brim Edge Trimmer Name Role Phone Asad Victor MD Primary Care Provider + [phone] Reason for Visit * Auth/Cert (Routine) Specialty Diagnoses / Procedures Referred By Contac t Referred To Contact Diagnoses Wound infection Post-op Vasc Sx wounds - sx on 10/17 at Nathaly Nowak MD [address] [facility] [address] [place] [address] Phone: tel: fax: [facility] Emergency Department [address] [place] [address] Phone: tel: Referral ID Status Reason Start Date Expiration Date Visits Re quested Visits Authorized [id number] 1 1 Encounter Details Date Type Department Care Team (Late st Contact Info) Description 11/06/2024 10:47 AM EDT Anesthesia Event [facility] OPERATING ROOM [address] [place] [address] Bill Sue MD [address] [place] [address] Sabrina Mckeon PA [address] [facility] [address] [place] [address] Anesthesia Record Procedure Summary Procedure [...] any time in the past 12 m [facility], were you homeless or living in a assisted (including now)? No 11/07/2024 CAGE ASSESSMENT Answer [...] drink first t dino in the morning (EYE-SLOT FLOORMAN) to steady your nerves or to get [...] and Staff Patient location during procedure: OR BORE MINER OPERATOR: Asad Lechuga CRNA, DNP Performed: BORE MINER OPERATOR Patient Condition Indications for airway management: [...] placement (Left) Location: [facility] OR 16 / [facility] OR Surgeons: Nathaly Nowak MD [facility] Mono Ana Bobby is a 64 y.o. [...] Abnormal Ventricular Rate 85 Atrial Rate 85 [place] Interval 146 QRSD Interval 128 QT Interval 390 QTC Interval 464 P [place] 52 R [place] 263 T Wave [place] 57 Diagnosis Atrial-sensed ventricular-paced rhythm Diagnosis Biventricular [...] is no recent study available for direct rqbi-zd-tzur comparison. [facility]: Pre-operative CIED Report Assessment and Sara- Procedural Reommendations: Name: Mono Bobby Date: 10/17/2024 : 1960 Age: 64 y.o. Patient has a Client Service And Consulting Manager: Berger MANAGEMENT CONSULTING-PM Remaining battery longevity adequate. Lead integrity test [...] RVR s/p CABG), CAD (CAD s/p multiple MS's and 3V CABG02/2019, 2 stents prior to CABG), carotid artery disease (carotid artery disease s/p R CEA 2016), dysrhythmias (3rd degree AV block MANAGEMENT CONSULTING-P placed 08/2023 for Wenkeback with 11 sec pause), hyperlipidemia, pacemaker and PVD. Does not have angina, CHF, murmur, orthopnea, syncope or valvular heart disease. hypertension: Cardio additional comments: Follows with OSH Card last seen 09/25/24 ([place]) . Respiratory: home oxygen (2L). no asthma: [...] ENDARTERECTOMY N/A 2017 Endarterectomy Carotid Artery from [employer] CORONARY ANGIOPLASTY Left Coronary Angiography With Concomitant Left Heart Catheterization from [employer] CORONARY ARTERY BYPASS GRAFT N/A 2018 3V ELBOW SURGERY Right ENDARTERECTOMY Left 10/17/2024 common/SFA/Profunda thromboendarterectomy, EIA/GRAIN ELEVATOR MOTOR STARTER stent HERNIA REPAIR KNEE ARTHROSCOPY Left VASCULAR SURGERY Left 09/21/2024 GRAIN ELEVATOR MOTOR STARTER pseudoaneurym injection [5] Social History Tobacco Use [...] Info) Description 12/19/2024 7:30 AM EDT Appointment [facility] Lab [address] [place] [address] 12/19/2024 8:00 AM EDT Appointment [facility] [address] [place] [address] 12/19/2024 9:00 AM EDT Office Visit [facility] [address] [place] [address] Nathaly Nowak MD [address] [facility] [address] [place] [address] documented as of this encounter Goals Goal Patient Goal Type Associated Problems Recent Progress Patient-Stated? Author Autogenera louise Goal Care Plan Autogenerated Problem No Ekta Arnett documented as of this encounter Procedures Procedure Name Priority Date/Time Associated Diagnosis Comments PB ANESTHESIA PLACEHOLDER Routine 11/06/2024 10:58 AM EDT [place] AN ELECTIVE ENDOTRACHEAL AIRWAY Routine 11/06/2024 10:58 AM EDT documented in this encounter Results * [place] AN ELECTIVE ENDOTRACHEAL AIRWAY, PB ANESTHESIA PLACEHOLDER (11/06/2024 10:58 AM EDT) Narrative Asad Lechuga CRNA, DNP - 11/06/2024 10:58 AM EDT Asad Lechuga CRNA, DNP 11/06/2024 11:05 AM Airway Date/Time: 11/06/2024 10:58 AM Reason: elective Airway not difficult General Information and Staff Patient location during procedure: OR BORE MINER OPERATOR: Asad Lechuga CRNA, DNP Performed: BORE MINER OPERATOR Patient Condition Indications for airway management: [...] documented as of this encounter Care Teams Brim Edge Trimmer Relationship Specialty Start Date End Date Asad Victor MD [address] [place] [address] PCP - General 10/07/22 documented as of this encounter
--- OUTSIDE RECORDS SUMMARY | 2024-11-18 13:10 | XMS_ITS | Encounter Summary ---
Author Organization [employer] ([place], [place], [place], [place]) Address [address] [place] [address] Care Team Providers Care Ingot Stripper Name Role Phone Unavailable Primary Care Provider Unavailabl e Reason for Visit * Reason Comments Wound Care Encounter Details Date Type Department Care Team (Late st Contact Info) Description 11/18/2024 1:10 PM EDT Office Visit [facility] 1 [place] [address] Jerry Monroe Jr., MD [address] [place] [address] Non-pressure chronic ulcer of skin of [...] health nurse( if you have home health) [facility] for an appointment. documented in this [...] Patient was admitted to the [facility] on November 05, 2024 and dischargedon November [...] line. Patient is getting daily infusions at [facility] through his PICC line [...] by: Jerry Monroe Jr., MD Authorized by: eJrry Monroe Jr., MD Consent Consent obtained? written Consent given by: patient Risks discussed? procedural risks discussed Immediately prior to the procedure a time out was called and the performing provider verified the correct patient, procedure, equipment, technology support analyst, and site/side marked as required. Debridement Details [...] provider verified the correct patient, procedure, equipment, technology support analyst, and site/side marked as required. Debridement Details [...] Care Team (Late st Contact Info) Description 12/02/2024 2:15 PM EDT Clinical Support [address] [address] 12/04/2024 3:10 PM EDT Office Visit [address] [address] Jerry Monroe Jr., MD [address] [place] [address] 12/06/2024 4:15 PM EDT Clinical Support [address] [address] 12/09/2024 3:30 PM EDT Clinical Support [address] [address] 12/11/2024 2:40 PM EDT Office Visit [address] [address] Jerry Monroe Jr., MD [address] [place] [address] 12/13/2024 3:30 PM EDT Clinical Support [address] [address] 12/16/2024 3:30 PM EDT Clinical Support [facility] 1 [place] [address] 12/18/2024 3:00 PM EDT Office Visit [facility] 1 [place] [address] Jerry Monroe Jr., MD [address] [place] [address] 12/20/2024 3:30 PM EDT Clinical Support [facility] 1 [place] [address] documented as of this encounter Procedures Procedure Name Priority Date/Time Associated Diagnosis Comments DE DEBRIDEMENT MUSCLE &/FASCIA EA ADDL 20 SQ CM Routine 11/18/2024 1:10 PM EDT 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) Localized tissue (HCC) Other specified local infections of the skin and subcutaneous tissue DE DEBRIDEMENT MUSCLE &/FASCIA EA ADDL 20 SQ CM Routine 11/18/2024 1:10 PM EDT 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) Localized tissue (HCC) Other specified local infections of the skin and subcutaneous tissue DE DEBRIDEMENT MUSCLE &/FASCIA 1ST 20 SQ CM/< Routine 11/18/2024 1:10 PM EDT 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) Localized tissue (HCC) Other specified local infections of the skin and subcutaneous tissue DE DEBRIDEMENT MUSCLE &/FASCIA EA ADDL 20 SQ CM Routine 11/18/2024 1:10 PM EDT 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) Localized tissue (HCC) Other specified local infections of the skin and subcutaneous tissue DE DEBRIDEMENT MUSCLE &/FASCIA EA ADDL 20 SQ CM Routine 11/18/2024 1:10 PM EDT 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) Localized tissue (HCC) Other specified local infections of the skin and subcutaneous tissue DE DEBRIDEMENT MUSCLE &/FASCIA 1ST 20 SQ CM/< Routine 11/18/2024 1:10 PM EDT 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 Debridement Details [...] MD PROCEDURE/MINOR SURGICAL ORDERABLES Final Result * DE DEBRIDEMENT MUSCLE &/FASCIA 1ST 20 SQ CM/<, [place] DEBRIDEMENT MUSCLE &/FASCIA EA ADDL 20SQ CM, [place] DEBRIDEMENT MUSCLE &/FASCIA EA ADDL 20 SQ [...] provider verified the correct patient, procedure, equipment, technology support analyst, and site/side marked as required. Debridement Details [...]
--- OUTSIDE RECORDS SUMMARY | 2024-11-20 14:15 | XMS_ITS | Encounter Summary ---
Author Organization [employer] ([place], [place], [place], [place]) Address [address] [place] [address] Care Team Providers Care Foam Molder Name Role Phone Unavailable Primary Care Provider Unavailabl e Reason for Visit * Reason Comments Wound Care Nurse visit for woun d vac change, wound care and dressing change Encounter Details Date Type Department Care Team (Late st Contact Info) Description 11/20/2024 2:15 PM EDT Clinical Support [facility] 1 [place] [address] Jerry Monroe Jr., MD [address] [place] [address] Non-pressure chronic ulcer of skin of [...] Description 12/02/2024 2:15 PM EDT Clinical Support [facility] 1 [place] [address] 12/04/2024 3:10 PM EDT Office Visit [facility] 1 [place] [address] Jerry Monroe Jr., MD [address] [place] [address] 12/06/2024 4:15 PM EDT Clinical Support [address] [address] 12/09/2024 3:30 PM EDT Clinical Support [address] [address] 12/11/2024 2:40 PM EDT Office Visit [address] [address] Jerry Monroe Jr., MD [address] [place] [address] 12/13/2024 3:30 PM EDT Clinical Support [address] [address] 12/16/2024 3:30 PM EDT Clinical Support [address] [address] 12/18/2024 3:00 PM EDT Office Visit [address] [address] Jerry Monroe Jr., MD [address] [place] [address] 12/20/2024 3:30 PM EDT Clinical Support [address] [address] documented as of this encounter Results * Wound Treatment (11/22/2024 5:14 PM EDT) us Jerry Monroe Jr., MD NURSING PATHWAYS ORDERABL ES Final Result documented in this encounter Visit Diagnoses Diagnosis 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
--- OUTSIDE RECORDS SUMMARY | 2024-11-22 16:15 | XMS_ITS | Encounter Summary ---
Author Organization [employer] ([place], [place], [place], [place]) Address [address] [place] [address] Care Team Providers Care Battery Repairer Name Role Phone Unavailable Primary Care Provider Unavailabl e Reason for Visit * Reason Comments Wound Care Encounter Details Date Type Department Care Team (Late st Contact Info) Description 11/22/2024 4:15 PM EDT Clinical Support [facility] 1 [place] [address] Jerry Monroe Jr., MD [address] [place] [address] Non-pressure chronic ulcer of skin of [...] Description 12/02/2024 2:15 PM EDT Clinical Support [facility] [place] 1 [place] [address] 12/04/2024 3:10 PM EDT Office Visit [facility] 1 [place] [address] Jerry Monroe Jr., MD [address] [place] [address] 12/06/2024 4:15 PM EDT Clinical Support [facility] 1 [place] [address] 12/09/2024 3:30 PM EDT Clinical Support [facility] 1 [place] [address] 12/11/2024 2:40 PM EDT Office Visit [facility] [place] 1 [place] [address] Jerry Monroe Jr., MD [address] [place] [address] 12/13/2024 3:30 PM EDT Clinical Support [facility] 1 [place] [address] 12/16/2024 3:30 PM EDT Clinical Support [facility] [place] 1 [place] [address] 12/18/2024 3:00 PM EDT Office Visit [facility] 1 [place] [address] Jerry Monroe Jr., MD [address] [place] [address] 12/20/2024 3:30 PM EDT Clinical Support [facility] [place] 1 [place] [address] documented as of this encounter Procedures Procedure [...]
--- OUTSIDE RECORDS SUMMARY | 2024-11-27 14:20 | XMS_ITS | Encounter Summary ---
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 Patient was admitted to the [facility] on November 05, 2024 and [...] line. Patient is getting daily infusions at [facility] through his PICC line for antibiotics. [...] skin ulcer (HCC) DOS: 11/27/2024 Patient ID: [id number] Bobby is a 64 y.o. male. Debridement Wound 11/18/24 Leg upper Left;Medial Performed by: Jerry Monroe Jr., MD Authorized by: Jerry Monroe Jr., MD Consent Consent obtained? written Consent given by: patient Risks discussed? procedural risks discussed Immediately prior to the procedure a time out was called and the performing provider verified the correct patient, procedure, equipment, java support engineer, and site/side marked as required. Debridement Details [...] provider verified the correct patient, procedure, equipment, java support engineer, and site/side marked as required. Debridement Details [...] Description 12/02/2024 2:15 PM EDT Clinical Support [facility] 1 [place] [address] 12/04/2024 3:10 PM EDT Office Visit [facility] 1 [place] [address] Jerry Monroe Jr., MD [address] [place] [address] 12/06/2024 4:15 PM EDT Clinical Support [address] [address] 12/09/2024 3:30 PM EDT Clinical Support [address] [address] 12/11/2024 2:40 PM EDT Office Visit [address] [address] Jerry Monroe Jr., MD [address] [place] [address] 12/13/2024 3:30 PM EDT Clinical Support [address] [address] 12/16/2024 3:30 PM EDT Clinical Support [address] [address] 12/18/2024 3:00 PM EDT Office Visit [address] [address] Jerry Monroe Jr., MD [address] [place] [address] 12/20/2024 3:30 PM EDT Clinical Support [address] [address] documented as of this encounter Procedures Procedure Name Priority Date/Time Associated Diagnosis Comments [place] DEBRIDEMENT MUSCLE &/FASCIA EA ADDL 20 SQ CM Routine 11/27/2024 2:20 PM EDT 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) Localized tissue (HCC) Other specified local infections of the skin and subcutaneous tissue [place] DEBRIDEMENT MUSCLE &/FASCIA EA ADDL 20 SQ CM Routine 11/27/2024 2:20 PM EDT 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) Localized tissue (HCC) Other specified local infections of the skin and subcutaneous tissue [place] DEBRIDEMENT MUSCLE &/FASCIA 1ST 20 SQ CM/< Routine 11/27/2024 2:20 PM EDT 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) Localized tissue (HCC) Other specified local infections of the skin and subcutaneous tissue [place] DEBRIDEMENT MUSCLE &/FASCIA EA ADDL 20 SQ CM Routine 11/27/2024 2:20 PM EDT 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) Localized tissue (HCC) Other specified local infections of the skin and subcutaneous tissue [place] DEBRIDEMENT MUSCLE &/FASCIA EA ADDL 20 SQ CM Routine 11/27/2024 2:20 PM EDT 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) Localized tissue (HCC) Other specified local infections of the skin and subcutaneous tissue [place] DEBRIDEMENT MUSCLE &/FASCIA 1ST 20 SQ CM/< Routine 11/27/2024 2:20 PM EDT 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 Debridement Details [...] MD PROCEDURE/MINOR SURGICAL ORDERABLES Final Result * [place] DEBRIDEMENT MUSCLE &/FASCIA 1ST 20 SQ CM/<, [place] DEBRIDEMENT MUSCLE &/FASCIA EA ADDL 20SQ CM, [place] DEBRIDEMENT MUSCLE &/FASCIA EA ADDL 20 SQ [...] provider verified the correct patient, procedure, equipment, java support engineer, and site/side marked as required. Debridement Details [...]
--- OUTSIDE RECORDS SUMMARY | 2024-11-29 16:00 | XMS_ITS | Encounter Summary ---
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 * Nallely Sky RN [...] Description 12/02/2024 2:15 PM EDT Clinical Support [facility] 1 [place] [address] 12/04/2024 3:10 PM EDT Office Visit [facility] [place] 1 [place] [address] Jerry Monroe Jr., MD [address] [place] [address] 12/06/2024 4:15 PM EDT Clinical Support [facility] [place] 1 [place] [address] 12/09/2024 3:30 PM EDT Clinical Support [facility] 1 [place] [address] 12/11/2024 2:40 PM EDT Office Visit [facility] 1 [place] [address] Jerry Monroe Jr., MD [address] [place] [address] 12/13/2024 3:30 PM EDT Clinical Support [facility] 1 [place] [address] 12/16/2024 3:30 PM EDT Clinical Support [facility] 1 [place] [address] 12/18/2024 3:00 PM EDT Office Visit [facility] [place] 1 [place] [address] Jerry Monroe Jr., MD [address] [place] [address] 12/20/2024 3:30 PM EDT Clinical Support [facility] [place] 1 [place] [address] documented as of this encounter Visit Diagnoses Not on filedocumented in this encounter
--- OUTSIDE RECORDS SUMMARY | 2024-12-02 08:07 | XMS_ITS | Encounter Summary ---
Author Organization [facility] Address [address] [place] [address] Care Team Providers Care Appeals Officer Name Role Phone Asad Victor MD Primary Care Provider + [phone] Encounter Details Date Type Department Care Team [...] first t dino in the morning (EYE-CUSTOMER SERVICE TELLER) to steady your nerves or to [...] Info) Description 12/19/2024 7:30 AM EDT Appointment [facility] [address] [place] [address] 12/19/2024 8:00 AM EDT Appointment [facility] [address] [facility] [address] [place] [address] 12/19/2024 9:00 AM EDT Office Visit [facility] [address] [facility] [address] [place] [address] Nathaly Nowak MD [address] [facility] [address] [place] [address] documented as of this encounter Goals Goal [...] documented as of this encounter Care Teams Appeals Officer Relationship Specialty Start Date End Date Asad Victor MD [address] [place] [address] PCP - General 10/07/22 documented as of this encounter
--- OUTSIDE RECORDS SUMMARY | 2024-12-02 08:09 | XMS_ITS | Encounter Summary ---
Author Organization [facility] Address [address] [id number] Care Team Providers Care Hospital Medicine Director Name Role Phone Asad Victor MD Primary Care Provider + [phone] Reason for Visit * Reason Onset Date Comments HCN Clinical Concern/Question 11/15/2024 Encounter Details Date Type Department Care Team (Late st Contact Info) Description 11/15/2024 Telephone [facility] [address] [facility] [address]th Floor [address] [place] [address] Nathaly Nowak MD [address] [facility] [address] [place] [address] HCN Clinical Concern/Question Social History [...] drink first t dino in the morning (EYE-STOCK DEALER) to steady your nerves or to get [...] has been receiving his wound care through [facility] in [place]. Records requested from there. Post-op appointment request [...] with info. Thank you Best contact number: [phone] (mobile) Optimal time of day to reach [...] Appointment [facility] [address] [place] [address] 12/19/2024 8:00 AM EDT Appointment [facility] [address] [place] [address] 12/19/2024 9:00 AM EDT Office Visit [facility] [address] [facility] 5th Floor [address] [place] [address] Nathaly Nowak MD [address] [facility] [address] [place] [address] documented as of this encounter [...] documented as of this encounter Care Teams Hospital Medicine Director Relationship Specialty Start Date End Date Asad Victor MD [address] [place] [address] PCP - General 10/07/22 documented as of this encounter
--- OUTSIDE RECORDS SUMMARY | 2024-12-02 08:09 | XMS_ITS | Encounter Summary ---
Author Organization [employer] ([place], [place], [place], [place]) Address [address] [place] [address] Care Team Providers Care Rn Interventional Name Role Phone Unavailable Primary Care Provider [...] Description 12/02/2024 2:15 PM EDT Clinical Support [facility] [place] 1 [place] [address] 12/04/2024 3:10 PM EDT Office Visit [facility] [place] 1 [place] [address] Jerry Monroe Jr., MD [address] [place] [address] 12/06/2024 4:15 PM EDT Clinical Support [facility] 1 [place] [address] 12/09/2024 3:30 PM EDT Clinical Support [facility] 1 [place] [address] 12/11/2024 2:40 PM EDT Office Visit [facility] [place] 1 [place] [address] Jerry Monroe Jr., MD [address] [place] [address] 12/13/2024 3:30 PM EDT Clinical Support [facility] 1 [place] [address] 12/16/2024 3:30 PM EDT Clinical Support [facility] 1 [place] [address] 12/18/2024 3:00 PM EDT Office Visit [facility] 1 [place] [address] Jerry Monroe Jr., MD [address] [place] [address] 12/20/2024 3:30 PM EDT Clinical Support [facility] 1 [place] [address] documented as of this encounter Visit Diagnoses Not on filedocumented in this encounter
[2024-12-02 08:11] VITALS: BP 134/68; PULSE 65; RESP 18; TEMP 36.4; O2SAT 98
[2024-12-02] MEDS: MICAFUNGIN SODIUM IV (08:11)
[2024-12-02] MEDS: SODIUM CHLORIDE 0.9% IV (08:11)
--- OUTSIDE RECORDS SUMMARY | 2024-12-02 08:11 | XMS_ITS | Encounter Summary ---
Author Organization [facility] Address [address] [place] [address] Care Team Providers Care Economic Consultant Name Role Phone Asad Victor MD Primary Care Provider + [phone] Encounter Details Date Type Department Care Team [...] drink first t dino in the morning (EYE-SNACK STEWARDESS) to steady your nerves or to get [...] [facility] [address] [place] [address] 12/19/2024 8:00 AM EDT Appointment [facility] [address] [facility] 5th Floor [address] [place] [address] 12/19/2024 9:00 AM EDT Office Visit [facility] [address] [facility] 5th Floor [address] [place] [address] Nathaly Nowak MD [address] [facility] [address] [place] [address] documented as of this encounter Goals Goal [...] as of this encounter Care Teams Economic Consultant Relationship Specialty Start Date End Date Asad Victor MD [address] [place] [address] PCP - General 10/07/22 documented as of this encounter
--- OUTSIDE RECORDS SUMMARY | 2024-12-02 08:11 | XMS_ITS | Clinical Summary ---
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 Staff Patient location during procedure: OR RIM FIRE PRIMING OPERATOR: Jenna Lopez CRNA Performed: RIM FIRE PRIMING OPERATOR Patient Condition Indications for airway management: [...] Mccallum MD ANESTHESIA ORDERABLES Final Result * [facility] AN POCUS CARDIAC PROCDOC (10/17/2024 7:18 [...] Trace AR. The images were Saved in [facility] E. The study was technically adequate. [...] Modality Other Narrative 10/17/2024 9:50 AM EDT [facility]: Pre-operative CIED Report Assessment and Sara-Procedural Reommendations: Name: Mono Bobby Date: 10/17/2024 : 1960 Age: 64 y.o. 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 Lead integrity [...] Supporting reports can be found in [employer] file. us Emelina DOSHI CV IMPLANTABLE CARDIAC [...] 7:15 PM EDT CLINICAL INDICATION: s/p L MILK DRYING MACHINE OPERATOR pseudoaneurysm injection TECHNIQUE: Non-invasive, real time duplex [...] sac. The following flow velocities were obtained: MILK DRYING MACHINE OPERATOR: 114 cm/s SFA: 0 cm/s PFA: 278 cm/s Popliteal A: 41 cm/s HAND SHAKER distal: 43 cm/s DPA: 67 cm/s Pseudoaneurysm sac: 0 cm/s Procedure Note Neil Isaac MD - 09/22/2024 CLINICAL INDICATION: s/p L MILK DRYING MACHINE OPERATOR pseudoaneurysm injection TECHNIQUE: Non-invasive, real time duplex exam of the lower extremity arterialcirculation with Doppler ultrasonic waveform and spectral analysis wasperformed. COMPARISON: Post pseudoaneurysm thrombin injection arterial duplex ylpgblchy22/28/2025; Following thrombin injection of the left common femoral arterypseudoaneurysm, no active flow is noted. Study suggests successfulthrombin injection therapy FINDINGS: Left: Following thrombin injection, an echogenic thrombus is noted within thepseudoaneurysm sac. Color and pulsed Doppler analysis demonstrates anabsence of flow within the pseudoaneurysm sac. The following flowvelocities were obtained: MILK DRYING MACHINE OPERATOR: 114 cm/s SFA: 0 cm/s PFA: 278 cm/s Popliteal A: 41 cm/s HAND SHAKER distal: 43 cm/s DPA: 67 cm/s Pseudoaneurysm [...] Isaac MD on 09/22/2024 7:15 PM Result [facility] Nathaly Nowak MD CV VASCULAR PROCEDURES Final Re sult * IR OUTSIDE IMAGES (09/21/2024 3:29 AM EDT) Anatomical Region Laterality Modality X-Ray Angiograph y 09/21/2024 3:29 AM EDT External Provider IMG IR PROCEDURES Final Result * ECG Adult (09/21/2024 2:00 AM EDT) EKG DIAGNOSIS CLASS Abnormal MUSE ECG Ventricular Rate 85 BPM MUSE ECG Atrial Rate 85 BPM MUSE ECG WV Interval 146 ms MUSE ECG QRSD Interval 128 ms MUSE ECG QT Interval 390 ms MUSE ECG QTC Interval 464 ms MUSE ECG P [place] 52 degrees MUSE ECG R [place] 263 degrees MUSE ECG T Wave [place] 57 degrees MUSE ECG Diagnosis Atrial-sensed ventricular-pace d rhythm MUSE ECG Diagnosis Biventricular pacemaker detected MUSE ECG Diagnosis MUSE ECG Diagnosis MUSE ECG Diagnosis Confirmed by Sana Ruth ([id number]) on 09/22/2024 11:34:36 PM MUSE ECG 09/21/2024 2:00 AM EDT 09/22/2024 11:34 PM EDT Result [facility] Nathaly Nowak MD ECG ORDERABLES Final Result MUSE ECG * ED HIV 1/2 Antibody/Antigen Screen w/Reflex to HIV 1/2 Differentiation (09/20/2024 10:33 PM EDT) HIV 1 & 2 Antibody/Antigen Screen Non Reactive Non Reactive 09/20/2024 11:39 PM EDT [facility] Comment:Screening for HIV 1 & 2 antibodies, and P24 antigen is NONREACTIVE. No confirmatory testing is required. Blood Venous blood specimen / Unknown Venipuncture / Unknown 09/20/2024 10:33 PM EDT 09/20/2024 10:54 PM EDT us Giorgi Perkins MD LAB BLOOD ORDERABLES Final Result [facility] [address] [place] [address] * Hepatitis C Antibody - ED (09/20/2024 10:33 PM EDT) Hepatitis C Antibody Negative Negative 09/20/2024 11:39 PM EDT [facility] Blood Venous blood specimen / Unknown Venipuncture / Unknown 09/20/2024 10:33 PM EDT 09/20/2024 10:53 PM EDT us Giorgi Perkins MD LAB BLOOD ORDERABLES Final Result Performing Organization Address City/[facility]/ZIP Co de Phone Number [facility] [address] [place] [address] * APTT (09/20/2024 10:33 PM EDT) Pathologist [facility] aPTT 28 25 - 35 sec LAB COAGULATION METHOD 09/21/2024 12:19 AM EDT [facility] Blood Venous blood specimen / Unknown Venipuncture / Unknown 09/20/2024 10:33 PM EDT 09/20/2024 10:42 PM EDT us Giorgi Perkins MD LAB BLOOD ORDERABLES Final Result Performing Organization Address City/[facility]/ZIP Co de Phone Number [facility] [address] [place] [address] from Last 3 Months Additional Health Concerns Active Problems Noted Date Diagnosed Date Autogenerated Problem 09/23/2024 Insurance [employer] [facility] MEDICAID [facility] MEDICARE Advance Directives * Full Code (Latest [...] Patient has decision-making capacity? Yes Care Teams Beam Saw Operator Relationship Specialty Start Date End Date Asad Victor MD [address] [place] [address] [place] [address] PCP - General 10/07/22
--- OUTSIDE RECORDS SUMMARY | 2024-12-02 08:12 | XMS_ITS | Encounter Summary ---
Author Organization Healthcare Address [address] [id number] Care Team Providers Care Retail Grocer Name Role Phone Asad Victor MD Primary Care Provider + [phone] Encounter Details Date Type Department Care Team (Late st Contact Info) Description 10/22/2024 Telephone Vascular Surgery [address] [place] [address] Alison Beltrán, COLOR WORKER, DNP [address] [facility] [address] [place] [address] Social History Tobacco Use Types Packs/Day Years [...] drink first t dino in the morning (EYE-MEDIA ACCOUNT EXECUTIVE) to steady your nerves or to get [...] Notes * Telephone Encounter - Alison Beltrán, COLOR WORKER, DNP - 10/22/2024 11:39 AM EDT Returned patient call. Patient s/p left common/superficial/profunda femoral thromboendarterectomy with bovine patch repair and left external iliac artery/SHIPMASTER stent with Dr Gautam on 10/17/24. Patient [...] System [facility] [address] [place] [address] 12/19/2024 8:00 AM EDT Appointment [facility] [address] [place] [address] 12/19/2024 9:00 AM EDT Office Visit [facility] [address] [place] [address] Nathaly Nowak MD [address] [facility] [address] [place] [address] documented as of this encounter Goals Goal [...] as of this encounter Care Teams Retail Grocer Relationship Specialty Start Date End Date Asad Victor MD [address] [place] [address] PCP - General 10/07/22 documented as of this encounter
--- OUTSIDE RECORDS SUMMARY | 2024-12-02 08:13 | XMS_ITS | Encounter Summary ---
Author Organization Healthcare Address [address] [place] [address] Care Team Providers Care Kiln Feeder Name Role Phone Asad Victor MD Primary Care Provider + [phone] Encounter Details Date Type Department Care Team (Late st Contact Info) Description 11/27/2024 Orders Only [address] [address] Vaishali Kraus MD [address] [place] [address] [address] [place] [address] Therapeutic drug monitoring (Primary Dx) [...] first t dino in the morning (EYE-BUSINESS PROCESS EXPERT) to steady your nerves or to get [...] Description 12/19/2024 7:[address] [facility] [address] [place] [address] 12/19/2024 8:[address] [facility] [address] [place] [address] 12/19/2024 9:00 AM EDT Office Visit [facility] [address] [place] [address] Nathaly Nowak MD [address] [facility] [address] [place] [address] Scheduled Orders Name Type Priority Associated Diagnoses [...] as of this encounter Care Teams Kiln Feeder Relationship Specialty Start Date End Date Asad Victor MD [address] [facility] [place] [address] PCP - General 10/07/22 documented as of this encounter
--- OUTSIDE RECORDS SUMMARY | 2024-12-02 08:13 | XMS_ITS | Encounter Summary ---
Author Organization [facility] Address [address] [place] [address] Care Team Providers Care Janitor Name Role Phone Asad Victor MD Primary Care Provider + [phone] Encounter Details Date Type Department Care Team [...] drink first t dino in the morning (EYE-ACCOUNT SPECIALIST) to steady your nerves or to [...] Info) Description 12/19/2024 7:30 AM EDT Appointment [facility] [address] [place] [address] 12/19/2024 8:00 AM EDT Appointment [facility] [address] [place] [address] 12/19/2024 9:00 AM EDT Office Visit [facility] [address] [place] [address] Nathaly Nowak MD [address] [facility] [address] [place] [address] documented as of this encounter [...] documented as of this encounter Care Teams Janitor Relationship Specialty Start Date End Date Asad Victor MD [address] [place] [address] PCP - General 10/07/22 documented as of this encounter
--- OUTSIDE RECORDS SUMMARY | 2024-12-02 08:13 | XMS_ITS | Encounter Summary ---
Author Organization Healthcare Address [address] [place] [address] Care Team Providers Care Automation Analyst Name Role Phone Asad Victor MD Primary Care Provider + [phone] Encounter Details Date Type Department Care Team (Late st Contact Info) Description 10/17/2024 Orders Only External Location [address] [place] [address] Provider, External Social History Tobacco Use Types [...] drink first t dino in the morning (EYE-MATHEMATICS EDUCATION PROFESSOR) to steady your nerves or to get rid of a hangover? 0 10/18/2021 CAGE Questionnaire Score 0 022 Utilities Answer Date Recorded In the past 12 months has th e [employer], gas, oil, or water [employer] threatened to shut off services in your [...] Info) Description 12/19/2024 7:30 AM EDT Appointment [facility] Lab [address] [place] [address] 12/19/2024 8:00 AM EDT Appointment [facility] [address] [place] [address] 12/19/2024 9:00 AM EDT Office Visit [facility] [address] [place] [address] Nathaly Nowak MD [address] [place] [address] documented as of this encounter Goals Goal [...] as of this encounter Care Teams Automation Analyst Relationship Specialty Start Date End Date Asad Victor MD [address] [place] [address] PCP - General 10/07/22 documented as of this encounter
--- OUTSIDE RECORDS SUMMARY | 2024-12-02 08:15 | XMS_ITS | Encounter Summary ---
Author Organization [employer] ([place], [place], [place], [place]) Address [address] [place] [address] Care Team Providers Care Researcher Name Role Phone Unavailable Primary Care Provider [...] Description 12/02/2024 2:15 PM EDT Clinical Support [facility] [place] [address] [place] [address] 12/04/2024 3:10 PM EDT Office Visit [facility] [address] [place] [address] Jerry Monroe Jr., MD [address] [place] [address] 12/06/2024 4:15 PM EDT Clinical Support [facility] [address] [place] [address] 12/09/2024 3:30 PM EDT Clinical Support [facility] [address] [place] [address] 12/11/2024 2:40 PM EDT Office Visit [facility] [place] [address] [place] [address] Jerry Monroe Jr., MD [address] [place] [address] 12/13/2024 3:30 PM EDT Clinical Support [facility] 1 [place] [address] 12/16/2024 3:30 PM EDT Clinical Support [facility] 1 [place] [address] 12/18/2024 3:00 PM EDT Office Visit [facility] 1 [place] [address] Jerry Monroe Jr., MD [address] [place] [address] 12/20/2024 3:30 PM EDT Clinical Support [facility] 1 [place] [address] documented as of this encounter Visit Diagnoses Not on filedocumented in this encounter
--- OUTSIDE RECORDS SUMMARY | 2024-12-02 08:15 | XMS_ITS | Referral Summary ---
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); Localized tissue (HCC); Other specified local infections of the skin and subcutaneous tissue; Diabetes mellitus with skin ulcer (HCC) 11/22/2024 4:15 PM EDT Clinical Support [facility] [place] [address] [place] [address] Jerry Monroe Jr., MD 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) 11/20/2024 Travel 11/20/2024 2:15 PM EDT Clinical Support [facility] [place] [address] [place] [address] Jerry Monroe Jr., MD 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) 11/18/2024 Travel 11/18/2024 1:10 PM EDT Office Visit [facility] [place] [address] [place] [address] Jerry Monroe Jr., MD Non-pressure chronic ulcer [...] Description 12/02/2024 2:15 PM EDT Clinical Support [facility] [address] [address] 12/04/2024 3:10 PM EDT Office Visit [place] [phone] Jerry Monroe Jr., MD [address] [place] [address] 12/06/2024 4:15 PM EDT Clinical Support [address] [address] 12/09/2024 3:30 PM EDT Clinical Support [address] [address] 12/11/2024 2:40 PM EDT Office Visit [address] [address] Jerry Monroe Jr., MD [address] [place] [address] 12/13/2024 3:30 PM EDT Clinical Support [facility] [address] [place] [address] 12/16/2024 3:30 PM EDT Clinical Support [facility] [address] [place] [address] 12/18/2024 3:00 PM EDT Office Visit [facility] [place] [address] [place] [address] Jerry Monroe Jr., MD [address] [place] [address] 12/20/2024 3:30 PM EDT Clinical Support [facility] [place] [address] [place] [address] Procedures Procedure Name Priority Date/Time Associated Diagnosis Comments [place] DEBRIDEMENT MUSCLE &/FASCIA EA ADDL 20 SQ CM Routine 11/27/2024 2:20 PM EDT 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) Localized tissue (HCC) Other specified local infections of the skin and subcutaneous tissue [place] DEBRIDEMENT MUSCLE &/FASCIA EA ADDL 20 SQ CM Routine 11/27/2024 2:20 PM EDT 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) Localized tissue (HCC) Other specified local infections of the skin and subcutaneous tissue [place] DEBRIDEMENT MUSCLE &/FASCIA 1ST 20 SQ CM/< Routine 11/27/2024 2:20 PM EDT 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) Localized tissue (HCC) Other specified local infections of the skin and subcutaneous tissue [place] DEBRIDEMENT MUSCLE &/FASCIA EA ADDL 20 SQ CM Routine 11/27/2024 2:20 PM EDT 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) Localized tissue (HCC) Other specified local infections of the skin and subcutaneous tissue [place] DEBRIDEMENT MUSCLE &/FASCIA EA ADDL 20 SQ CM Routine 11/27/2024 2:20 PM EDT 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) Localized tissue (HCC) Other specified local infections of the skin and subcutaneous tissue [place] DEBRIDEMENT MUSCLE &/FASCIA 1ST 20 SQ CM/< Routine 11/27/2024 2:20 PM EDT 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) Localized tissue (HCC) Other specified local infections of the skin and subcutaneous tissue WOUND TREATMENT Routine 11/22/2024 5:14 PM EDT 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) [place] DEBRIDEMENT MUSCLE &/FASCIA EA ADDL 20 SQ CM Routine 11/18/2024 1:10 PM EDT 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) Localized tissue (HCC) Other specified local infections of the skin and subcutaneous tissue [place] DEBRIDEMENT MUSCLE &/FASCIA EA ADDL 20 SQ CM Routine 11/18/2024 1:10 PM EDT 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) Localized tissue (HCC) Other specified local infections of the skin and subcutaneous tissue [place] DEBRIDEMENT MUSCLE &/FASCIA 1ST 20 SQ CM/< Routine 11/18/2024 1:10 PM EDT 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) Localized tissue (HCC) Other specified local infections of the skin and subcutaneous tissue [place] DEBRIDEMENT MUSCLE &/FASCIA EA ADDL 20 SQ CM Routine 11/18/2024 1:10 PM EDT 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) Localized tissue (HCC) Other specified local infections of the skin and subcutaneous tissue [place] DEBRIDEMENT MUSCLE &/FASCIA EA ADDL 20 SQ CM Routine 11/18/2024 1:10 PM EDT 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) Localized tissue (HCC) Other specified local infections of the skin and subcutaneous tissue [place] DEBRIDEMENT MUSCLE &/FASCIA 1ST 20 SQ CM/< Routine 11/18/2024 1:10 PM EDT 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 Debridement Details [...] MD PROCEDURE/MINOR SURGICAL ORDERABLES Final Result * [place] DEBRIDEMENT MUSCLE &/FASCIA 1ST 20 SQ CM/<, [place] DEBRIDEMENT MUSCLE &/FASCIA EA ADDL 20SQ CM, [place] DEBRIDEMENT MUSCLE &/FASCIA EA ADDL 20 SQ [...] verified the correct patient, procedure, equipment, support director, and site/side marked as required. Debridement Details [...] NURSING PATHWAYS ORDERABL ES Final Result * [place] DEBRIDEMENT MUSCLE &/FASCIA 1ST 20 SQ CM/<, [place] DEBRIDEMENT MUSCLE &/FASCIA EA ADDL 20SQ CM, [place] DEBRIDEMENT MUSCLE &/FASCIA EA ADDL 20 SQ [...] verified the correct patient, procedure, equipment, support director, and site/side marked as required. Debridement Details [...] MD PROCEDURE/MINOR SURGICAL ORDERABLES Final Result * [place] DEBRIDEMENT MUSCLE &/FASCIA 1ST 20 SQ CM/<, [place] DEBRIDEMENT MUSCLE &/FASCIA EA ADDL 20SQ CM, [place] DEBRIDEMENT MUSCLE &/FASCIA EA ADDL 20 SQ [...] verified the correct patient, procedure, equipment, support director, and site/side marked as required. Debridement Details [...] Final Result from Last 3 Months Insurance [facility] AD[facility] DUAL COMPLETE MEDICAID OF [place]
--- OUTSIDE RECORDS SUMMARY | 2024-12-02 08:18 | XMS_ITS | Encounter Summary ---
Author Organization [facility] Address [address] [place] [address] Care Team Providers Care Barmaid Name Role Phone Asad Victor MD Primary Care Provider + [phone] Encounter Details Date Type Department Care Team [...] drink first t dino in the morning (EYE-VETERINARIAN SMALL ANIMAL) to steady your nerves or to get [...] 1 Month) No 025 2:00 PM EDT [place], Brigitte E, RN 2. Non-Specific Active Suici marcelle Thoughts (Past 1 Month) No 11/06/2024 2:00 PM EDT Brigitte Castellon RN 6. Suicidal Behavior (Lifetime) No 2:00 PM EDT Brigitte Castellon RN documented as of this encounter Plan of Treatment Upcoming Encounters Date Type Department Care Team (Late st Contact Info) Description 12/19/2024 7:30 AM EDT Appointment [facility] [address] [place] [address] 12/19/2024 8:00 AM EDT Appointment [facility] [address] Floor [address], [address] [place] [address] 12/19/2024 9:00 AM EDT Office Visit [facility] [address], [address] [place] [address] Nathaly Nowak MD [address] [place] [address] documented as of this encounter Goals Goal [...] documented as of this encounter Care Teams Barmaid Relationship Specialty Start Date End Date Asad Victor MD [address] [place] [address] PCP - General 10/07/22 documented as of this encounter
--- OUTSIDE RECORDS SUMMARY | 2024-12-02 08:18 | XMS_ITS | Encounter Summary ---
Author Organization Healthcare Address [address] [place] [address] Care Team Providers Care Resource Conservation Specialist Name Role Phone Asad Victor MD Primary Care Provider + [phone] Encounter Details Date Type Department Care Team (Late st Contact Info) Description 11/05/2024 Orders Only External Location [address] [place] [address] Provider, External Social History Tobacco Use Types [...] first t dino in the morning (EYE-SUPERVISOR SOLDERING) to steady your nerves or to get rid of a hangover? 0 10/18/2021 CAGE Questionnaire Score 0 022 Utilities Answer Date Recorded In the past 12 months has th e [employer], gas, oil, or water company threatened to [...] Info) Description 12/19/2024 7:30 AM EDT Appointment [facility] [address], [address] [place] [address] 12/19/2024 8:00 AM EDT Appointment [facility] [address] Floor [address], [address] [place] [address] 12/19/2024 9:00 AM EDT Office Visit [facility] [address], [address] [place] [address] Nathaly Nowak MD [address] [place] [address] documented as of this encounter Goals Goal [...] documented as of this encounter Care Teams Resource Conservation Specialist Relationship Specialty Start Date End Date Asad Victor MD [address] [place] [address] PCP - General 10/07/22 documented as of this encounter
--- OUTSIDE RECORDS SUMMARY | 2024-12-02 08:21 | XMS_ITS | Encounter Summary ---
Author Organization [facility] Address [address] [place] [address] Care Team Providers Care Air Conditioning Installer Supervisor Name Role Phone Asad Victor MD Primary Care Provider + [phone] Encounter Details Date Type Department Care Team (Late st Contact Info) Description 11/15/2024 Clinical Support [place] [address] [place] [address] Charly Orlando, PharmD [address] [place] [address] [address] [place] [address] Social History Tobacco Use Types [...] drink first t dino in the morning (EYE-TRAINING LEAD) to steady your nerves or to get rid of a hangover? 0 10/18/2021 CAGE Questionnaire Score 0 022 Utilities Answer Date Recorded In the past 12 months has th e [employer], gas, oil, or water company threatened to [...] Info) Description 12/19/2024 7:30 AM EDT Appointment [facility] [address] [facility] 5th Floor Wing D, [address] [place] [address] 12/19/2024 8:00 AM EDT Appointment [facility] [address] [facility] 5th Floor Wing D, [address] [place] [address] 12/19/2024 9:00 AM EDT Office Visit [facility] [address] [facility] 5th Floor Wing D, [address] [place] [address] Nathaly Nowak MD [address] [facility] [address] [place] [address] documented as of this encounter Goals Goal [...] as of this encounter Care Teams Air Conditioning Installer Supervisor Relationship Specialty Start Date End Date Asad Victor MD [address] [place] [address] PCP - General 10/07/22 documented as of this encounter
--- OUTSIDE RECORDS SUMMARY | 2024-12-02 08:22 | XMS_ITS | Encounter Summary ---
Author Organization [employer] ([place], [place], [place], [place]) Address [address] [place] [address] Care Team Providers Care Valve Technician Name Role Phone Unavailable Primary Care [...] Description 12/02/2024 2:15 PM EDT Clinical Support [facility] [place] 1 [place] [address] 12/04/2024 3:10 PM EDT Office Visit [facility] [place] 1 [place] [address] Jerry Monroe Jr., MD [address] [place] [address] 12/06/2024 4:15 PM EDT Clinical Support [facility] 1 [place] [address] 12/09/2024 3:30 PM EDT Clinical Support [facility] 1 [place] [address] 12/11/2024 2:40 PM EDT Office Visit [facility] [place] 1 [place] [address] Jerry Monroe Jr., MD [address] [place] [address] 12/13/2024 3:30 PM EDT Clinical Support [facility] 1 [place] [address] 12/16/2024 3:30 PM EDT Clinical Support [facility] 1 [place] [address] 12/18/2024 3:00 PM EDT Office Visit [facility] 1 [place] [address] Jerry Monroe Jr., MD [address] [place] [address] 12/20/2024 3:30 PM EDT Clinical Support [facility] 1 [place] [address] documented as of this encounter Visit Diagnoses Not on filedocumented in this encounter
[2024-12-02 08:45] LABS: Hematocrit 31.0 % (42.0-52.0); Hemoglobin 9.7 g/dL (14.1-18.0); Immature Granulocytes % 0.5 %; Mean Corpuscular HGB Conc 31.3 g/dL (31.8-35.4); Mean Corpuscular Hemoglobin 28.1 pg (27.0-31.2); Mean Corpuscular Volume 89.9 fl (80-94); Nucleated Red Blood Cells % 0 %; Platelet Count 447 K/mm3 (142-424); Red Blood Count 3.45 M/mm3 (4.60-6.20); Red Cell Distribution Width-SD 44.3 fL; White Blood Count 8.4 K/mm3 (4.8-10.8)
[2024-12-02 08:48] LABS: Blood Urea Nitrogen 28 mg/dl (9-20); Creatinine,Serum 0.70 mg/dl (0.66-1.25); Estimated Glomerular Filt Rate 113 ml/min (>60); GFR (African American) 137 ML/MIN (>60)
[2024-12-02] MEDS: ERTAPENEM SODIUM 1 GM in 0.9 % SODIUM CHLORIDE 50 ML IV (09:16)
[2024-12-02 09:20] VITALS: BP 133/64; PULSE 67
[2024-12-02 09:23] LABS: C-Reactive Protein 7.3 mg/L (0-4)
[2024-12-02 09:50] VITALS: BP 120/57; PULSE 63; O2SAT 100
[2024-12-02] MEDS: SODIUM CHLORIDE 0.9% 10ML FLUSH SYRINGE 10 ML IV (10:00)
== END 2024-12-02 10:00 | disposition home or self-care (01) ==
LOC: INF 08:00
PROVIDERS: PCP Family Medicine
DX: T14.8XXA Other injury of unspecified body region, initial encounter (principal); L08.9 Local infection of the skin and subcutaneous tissue, unspecified; X58.XXXA Exposure to other specified factors, initial encounter; Y93.F9 Activity, other caregiving; Y92.9 Unspecified place or not applicable
CPT/HCPCS: 36592; 82565; 84520; 85025; 86140; 96365; 96367; J1335; J2248

== ENCOUNTER 2024-12-03 08:03 | Outpatient (CLI) | payer MEDICARE, OTHER, SELFPAY ==
[2024-12-03] MEDS: MICAFUNGIN SODIUM IV (08:21)
[2024-12-03] MEDS: SODIUM CHLORIDE 0.9% IV (08:21)
[2024-12-03 08:22] VITALS: BP 127/51; PULSE 67; RESP 14; TEMP 36.6; O2SAT 93
[2024-12-03] MEDS: ERTAPENEM SODIUM 1 GM in 0.9 % SODIUM CHLORIDE 50 ML IV (09:30)
[2024-12-03 10:29] VITALS: BP 147/57; PULSE 70; RESP 16; O2SAT 94
== END 2024-12-03 10:29 | disposition home or self-care (01) ==
LOC: INF 08:07
PROVIDERS: PCP Family Medicine
DX: T14.8XXA Other injury of unspecified body region, initial encounter (principal); L08.9 Local infection of the skin and subcutaneous tissue, unspecified; X58.XXXA Exposure to other specified factors, initial encounter; Y93.9 Activity, unspecified; Y92.9 Unspecified place or not applicable
CPT/HCPCS: 96365; 96367; 96523; J1335; J2248

== ENCOUNTER 2024-12-04 08:04 | Outpatient (CLI) | payer MEDICARE, OTHER, SELFPAY ==
[2024-12-04 08:16] VITALS: BP 134/72; PULSE 68
[2024-12-04] MEDS: MICAFUNGIN SODIUM IV (08:16)
[2024-12-04] MEDS: SODIUM CHLORIDE 0.9% IV (08:16)
[2024-12-04 09:20] VITALS: BP 131/68; PULSE 71
[2024-12-04] MEDS: ERTAPENEM SODIUM 1 GM in 0.9 % SODIUM CHLORIDE 50 ML IV (09:24)
[2024-12-04 09:55] VITALS: BP 129/64; PULSE 69; RESP 20
[2024-12-04] MEDS: SODIUM CHLORIDE 0.9% 10ML FLUSH SYRINGE 10 ML IV (10:13)
== END 2024-12-04 10:10 | disposition home or self-care (01) ==
LOC: INF 08:05
PROVIDERS: PCP Family Medicine
DX: T14.8XXA Other injury of unspecified body region, initial encounter (principal); L08.9 Local infection of the skin and subcutaneous tissue, unspecified; X58.XXXA Exposure to other specified factors, initial encounter; Y93.9 Activity, unspecified; Y92.9 Unspecified place or not applicable
CPT/HCPCS: 96365; 96367; J1335; J2248

== ENCOUNTER 2024-12-05 08:01 | Outpatient (CLI) | payer MEDICARE, OTHER, SELFPAY ==
--- OUTSIDE RECORDS SUMMARY | 2024-10-11 10:15 | XMS_ITS | Encounter Summary ---
Author Organization [facility] Address [address] [place] [address] Care Team Providers Care Pitch Gatherer Name Role Phone Asad Victor MD Primary Care Provider + [phone] Encounter Details Date Type Department Care Team (Latest Contact Info) Description 10/11/2024 10:15 AM EDT Pre-Admission Testing [facility] [address] [place] [phone] Preop testing (Primary Dx) Anesthesia Record Procedure [...] Hand; Site Prep: Chlorhexidine ; Local Anesth: [place]; Technique: Anatomical landmarks; Inserted by: CHRISTIAN Acuna; [...] G; Orientation: Right; Location: Axillary; Inserted by: NURSE TRANSITIONAL; Securement: Sutured; Patient Tolerance: Tolerated well; Removal [...] drink first t dino in the morning (EYE-BOTTLING MACHINE OPERATOR) to steady your nerves or [...] note 09/25/24 (media) + CAD s/p multiple CO's and 3V CABG 02/2019, 2 stents prior to CABG Atrial Fibrillation with RVR s/p CABG + carotid artery disease s/p R CEA 2016 + 3rd degree AV block WAREHOUSE PULLER-P placed 08/2023 for Wenkeback with 11 sec pause + HLD + HTN - controlled + PAD 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 S/P intravascular lithotripsy of left common and external iliac artery with 2 continuous balloon mounted bare metal stents 09/12/24 on Xarelto and ASA + WILHELM occ, low energy for > year - had work-up recently in [place] (will get records) + peripheral edema LLE [...] ENDARTERECTOMY N/A 2017 Endarterectomy Carotid Artery from [facility] CORONARY ANGIOPLASTY Left Coronary Angiography With Concomitant Left Heart Catheterization from [facility] CORONARY ARTERY BYPASS GRAFT N/A 2018 3V ELBOW SURGERY Right OTHER SURGICAL HISTORY N/A Reported Prior Surgical / Procedural History from [facility] [5] No Known Allergies [6] Current Outpatient [...] card, photo ID, along with power of field crops harvest machine operator, guardianship or advanced directives if applicable Do [...] Description 12/13/2024 2:00 PM EDT Office Visit [facility] [address] [facility] [place] [address] Oscar Appiah MD [address] [facility] [address] [place] [address] 12/19/2024 7:30 AM EDT Appointment [facility] [address] 5th [address] [place] [address] 12/19/2024 8:00 AM EDT Appointment [facility] [address] 5th [address] [place] [address] 12/19/2024 9:00 AM EDT Office Visit [facility] [address] [place] [address] Nathaly Nowak MD [address] [place] [address] documented as of this encounter Goals Goal [...] Modality Other Narrative 10/17/2024 9:50 AM EDT [facility]: Pre-operative CIED Report Assessment and Sara-Procedural Reommendations: Name: Mono Bobby Date: 10/17/2024 : 1960 Age: 64 y.o. Patient has a Local Area Network Administrator: Berger WAREHOUSE PULLER-PM Remaining battery longevity adequate. Lead integrity test [...] recommendations. Supporting reports can be found in [employer] media file. us Emelina DOSHI CV IMPLANTABLE [...] documented as of this encounter Care Teams Pitch Gatherer Relationship Specialty Start Date End Date Asad Victor MD [address] [place] [address] PCP - General 10/07/22 documented as of this encounter
--- OUTSIDE RECORDS SUMMARY | 2024-10-16 14:45 | XMS_ITS | Encounter Summary ---
Author Organization Healthcare Address [address] [place] [address] Care Team Providers Care Lead Ingot Molder Name Role Phone Asad Victor MD Primary Care Provider + [phone] Encounter Details Date Type Department Care Team (Latest Contact Info) Description 10/16/2024 2:45 PM EDT - 10/16/2024 11:59 PM EDT Hospital Encounter Cardiac Imaging [address] [place] [address] Discharge Disposition: Home or Self Care Social [...] drink first t dino in the morning (EYE-HAND DEVELOPER) to steady your nerves or to get [...] Description 12/13/2024 2:00 PM EDT Office Visit [facility] [address] [place] [address] Oscar Appiah MD [facility] 100 [place] [address] 12/19/2024 7:30 AM EDT Appointment [facility] [address] [place] [address] 12/19/2024 8:00 AM EDT Appointment [facility] [address] [place] [address] 12/19/2024 9:00 AM EDT Office Visit [facility] [address] [place] [address] Nathaly Nowak MD [address] [facility] [address] [place] [address] documented as of this encounter Goals Goal [...] Modality Other Narrative 10/17/2024 9:50 AM EDT [facility]: Pre-operative CIED Report Assessment and Sara-Procedural Reommendations: Name: Mono Bobby Date: 10/17/2024 : 1960 Age: 64 y.o. Patient has a Research Support Specialist: Berger GEOTHERMAL POWERPLANT MECHANIC-PM Remaining battery longevity adequate. Lead integrity test [...] recommendations. Supporting reports can be found in [employer] media file. 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
--- OUTSIDE RECORDS SUMMARY | 2024-10-17 06:21 | XMS_ITS | Encounter Summary ---
Author Organization [facility] Address [address] [id number] Care Team Providers Care Spike Machine Feeder Name Role Phone Asad Victor MD Primary Care Provider [phone] Reason for Referral * Imaging (Routine) - Authorized Specialty Diagnoses / Procedures Referred By Susan t Referred To Contact Cardiology Diagnoses Critical limb ischemia of left lower extremity Pseudoaneurysm of left femoral artery (CMS/HCC) Procedures VAS US Arterial Duplex Lower Extremity Unilateral Left Terrell Gautam MD [address] [address] Phone: tel: fax: Referral ID Status Reason Start Date Expiration Date Visits Requested Visits Authorized [id number] Authorized Perform Procedure 10/19/2024 04/20/2026 1 1 * Imaging (Routine) - Authorized Specialty Diagnoses / Procedures Referred By Contac t Referred To Contact Cardiology Diagnoses Critical limb ischemia of left lower extremity Pseudoaneurysm of left femoral artery (CMS/HCC) Procedures VAS Ankle Brachial Index - Segmental Terrell Gautam MD [address] [id number] [place] [address] Phone: tel: fax: Referral ID Status Reason Start Date Expiration Date Visits Requested Visits Authorized [id number] Authorized Perform Procedure 10/19/2024 04/20/2026 1 1 * Consultation (Routine) - Authorized Specialty Diagnoses / Procedures Referred By Contact Referred To Contact Vascular Surgery / [facility] Diagnoses Critical limb ischemia of left lower extremity Pseudoaneurysm of left femoral artery (CMS/HCC) Terrell Gautam MD [address] [place] [address] Phone: tel:[phone] fax:[phone] [facility] [address] [place] [address] 5th Floor [address] [place] [address] Phone: tel: fax: Referral ID Status Reason Start Date Expiration Date Visits Requested Visits Authorized [id number] Authorized Specialty Services Required 10/19/2024 04/20/2026 [address] Gautam, with SIL, arterial duplex Reason for Visit * Auth/Cert (Routine) Specialty Diagnoses / Procedures Referred By Susan t Referred To Contact Diagnoses Critical limb ischemia of left lower extremity Critical limb ischemia of left lower extremity [I70.222] Procedures WI VEIN BYPASS GRAFT,FEM-POP CREATION, BYPASS, ARTERIAL, FEMORAL TO POPLITEAL Terrell Gautam MD [address] [place] [address] Phone: tel: fax: P[facility] A OPERATING ROOM [address] [place] [address] Phone: tel: Referral ID Status Reason Start Date Expiration Date Visits Re quested Visits Authorized [id number] 1 1 Encounter Details Date Type Department Care Team (Latest Contact Info) Description 10/17/2024 6:21 AM EDT - 10/19/2024 12:39 PM EDT Hospital Encounter P[facility] H Inpatient [address] [place] [id number] Terrell Gautam MD [address] [place] [address] Pseudoaneurysm of left femoral artery (CMS/HCC) [...] time in the past 12 m [facility], were you homeless or living in a [place] health care facility (including now)? No 10/18/2024 CAGE ASSESSMENT Answer [...] drink first t dino in the morning (EYE-TEACHER CCLC) to steady your nerves or to get rid of a hangover? 0 10/18/2021 CAGE Questionnaire Score 0 022 Utilities Answer Date Recorded In the past 12 months has th [employer], gas, oil, or water [employer] threatened to shut off services in your [...] provided Taken 10/17/20242107 by Jourdan Grimes II burglar alarm assembler Review/Management: medications reviewed Problem: Skin Injury Risk [...] Ongoing, Progressing Intervention: Promote Activity and Functional [place] Flowsheets (Taken 10/19/2024 1048) Self-Care Promotion: BADL personal objects within reach meal set-up provided * Yuni Ramires - Keyla Chow - 10/19/2024 11:45 AM EDT Images from the original note were not included. [id number] After Peripheral Artery Bypass Surgery: In the [...] home. Last Reviewed Date: 2023 00:00:00 ?? [id number] The [employer]. All rights reserved. This information is not intended as a substitute for professional medical care. Always follow your healthcare professional's instructions. * Progress Notes - Emelina Friend - 10/19/2024 11:44 AM EDT Case Management Adult Progress Note Bev Bobby 64 y.o. male CSN: [id number] Admission: 10/17/2024 6:21 AM Primary Problem: Critical [...] if any other needs arise. Emelina Friend TRIP MOTOR OPERATOR, CONDENSER WINDER Social Work Case Management * Yuni OviJOSE MANUEL Chow Keyla - 10/19/2024 11:44 AM EDT Images from the original note were not included. [id number] Peripheral Artery Disease (PAD) Peripheral artery disease [...] cause. Last Reviewed Date: 2024 00:00:00 ?? [id number] [employer]. All rights reserved. This information is not intended as a substitute for professional medical care. Always follow your healthcare professional's instructions. * Yuni DiorNAVYA - Keyla Chow - 10/19/2024 11:44 AM EDT Images from the original note were not included. [id number] Leg Artery Emergencies: Critical Limb Ischemia (CLI) [...] appointments. Last Reviewed Date: 2023 00:00:00 ?? [id number] [employer]. All rights reserved. This information is not intended as a substitute for professional medical care. Always follow your healthcare professional's instructions. * Discharge Summary - Dandy Baltazar MD - 10/19/2024 11:31 AM EDT Hospitalization Admit Date/Time: 10/17/2024 6:21 AM Admitting Attending: Terrell Gautam Discharge Date: 10/19/24 Discharge Attending Physician: Nirmal Cueto MD PCP name and Address: Asad Victor MD (Inactive) [address] [place] [address] / [facility] [address] Referring provider name and address: Timothy Marques PA [address] [place] [address] Chief Concern, Brief History of Present Illness, and Hospital Course Bev Bobby is an 64 y.o. 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 [...] Your Medications These medications were sent to [facility] - [place], [place] - [email or web address], [facility] [address] acetaminophen 500 MG tablet clopidogrel 75 MG [...] water. Outpatient Follow-Up Follow up with 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 [...] provided Taken 10/17/20242107 by Jourdan Grimes II, burglar alarm assembler Review/Management: medications reviewed Problem: Skin Injury Risk [...] Ongoing, Progressing Intervention: Promote Activity and Functional [place] Flowsheets (Taken 10/19/2024 1048) Self-Care Promotion: BADL [...] evaluation. PARTICIPANTS IN CARE Visitors Present No Pig Lead Melter Helper (if applicable) PRESENTATION Oxygen Oxygen Therapy: None [...] Level of Mobility Ambulatory- household only Mobility [place] Independent gait with device (rollator) History of [...] numbness in rodney) BED MOBILITY Level of [place] Physical/Non- physical Assist Adaptive Equipment Utilized Rolling/ Turning Scooting/ Bridging Modified independence (anteriorly to EOB) Bed rails Supine to Sit Modified [place] (to the right) (HOB flat) Bed rails Sit to Supine Interventions HOB flat to simulate home environment TRANSFERS Level of [place] Physical/Non- physical Assist Adaptive Equipment Utilized Sit [...] stable surfaces during transitions. AMBULATION Level of [place] Distance Adaptive Equipment Utilized Ambulation Standby assist, [...] Posture: Forward head, Rounded shoulders Level of [place] Balance Support Interventions Static Sit Independent Right [...] 3-5 steps with a railing?: A little [facility] 6-Clicks Mobility Assessment Total : 22 [...] evaluation/session. Participants in Care Family/Caregiver Present: No Pig Lead Melter Helper: Not Applicable Presentation Oxygen Therapy: None (Room [...] Level of Mobility: Ambulatory- household only Mobility [place]: Independent gait with device (rollator) History of [...] Mobility Bed Mobility Exam: Scooting/Bridging Level of [place]: Modified independence (anteriorly to EOB) Assistive Device: Bed rails Bed Mobility Exam: Supine to Sit Level of [place]: Modified [place] (to the right) Physical/Nonphysical Assist: (HOB flat) Assistive Device: Bed rails Transfers Transfer Exam: Sit to stand Level of [place]: Stand-by assist Physical/Nonphysical Assist: Supervision, Verbal Cues, Minimal cues Assistive Device: Walker, rolling Transfer Exam: Stand to Sit Level of [place]: Stand-by assist Physical/Nonphysical Assist: Supervision, Verbal Cues, [...] regarding toileting at this time. Standardized Assessments [facility] 6-Click Daily Activities Help from Other: Don/Doff Regular Lower Body Clothings: None Help From Other: Bathing: Little Help From Other: Toileting: None Help From Other: Don/Doff Upper Body Clothings: None Help From Other: Grooming: None Help From Other: Eating Meals: None [facility] 6 Click - Daily Activities Score: 23/24 [facility] Scoring Interpretation: Scores greater than 20.5 [...] Note Bev Bobby 64 y.o. male CSN: [id number] Admission: 10/17/2024 6:21 AM Primary Problem: Critical limb ischemia of left lower extremity Service Desk Associate reviewed chart and spoke with patient to complete this Initial Case Management Assessment. PCP: Asad Victor MD (Inactive) - Dr. Palomo Preferred pharmacy is [facility] Emergency Contact: Extended Emergency Contact Information Primary Emergency Contact: Patti Hill Relation: Sister Pig Lead Melter Helper needed? No Insurance: Primary Visit Coverage Payer Plan Sponsor Code Group Number Group Name [facility] MEDICARE [facility] MEDICARE REPLACEMENT [id number] Primary Visit Coverage Subscriber Subscriber ID Subscriber Name Subscriber N Subscriber Address [id number] BEV BOBBY [id number] [place] [address] Secondary Visit Coverage Payer Plan Sponsor Code Group Number Group Name [facility] Secondary Visit Coverage Subscriber Subscriber ID Subscriber Name Subscriber N Subscriber Address [id number] BEV BOBBY [id number] [place] [address] Patient information: Primary Caregiver: Self Daily Living Activities: Functional Status: Independent Living Arrangements: Alone Type of Residence: Private residence, Single Level [address] [place] [address] Current DME: Equipment Currently Used at Home: walker, rollator Income Information: Income Source: Retired Income/Expense Information: Income meets expenses Current Resources Utilized: Food [place] Housing Circumstances-Z Codes: Housing Circumstances (select [...] Dialysis Services: None. Living Will/Advance Directive/Power of Sales Agent Food Vending Service /Guardian: Denied. Additional Comments: Patient is not medically ready for discharge. SW will continue to follow. Mariia Macedo CONDENSER WINDER * Care Plan - Emilia Alonso RN [...] from the original note were not included. [facility] Department of Surgery Division of Vascular [...] Agree with above assessment and evaluation from resident/FIRST ASSISTANT. * Op Note - Terrell Gautam MD [...] bovine patch repair Left external iliac artery/FILLING MACHINE OPERATOR stent Attending Surgeon(s): * Terrell Gautam - Primary Immersion Metalcleaner(s): * Luna Beckett MD - Resident - [...] Necessity Reasons Recent surgery contiguous with urinary tract/FISHER TRAWL NET/colorectal 10/17/24 190 Output (mL) 50 mL 10/18/24 08 Implants Type Name Action Serial No. VASCUGUARD 8 X 8 - [id number] Implanted STENT ENDOPROSTHESIS VIABAHN 9FR [id number] - [id number] Implanted [id number] Specimen: Specimens ID Source Frozen? 1 Other [...] and distal control. We then proceeded with hnftj-xnb-lrpv exposure of the popliteal artery. A medial [...] balloon dilated thestent with a 9 mm [place]. We closed the arteriotomy with a single [...] 10/17/2024 8:52 AM EDT Date: 10/17/24 Location: [facility] Name: Bev Perez Kanu, : 1960, Diagnoses: Pre-op Diagnosis Critical limb ischemia of left lower extremity Common femoral artery pseudoaneurysm Post-op Diagnosis Critical limb ischemia of left lower extremity Common femoral artery pseudoaneurysm Procedure(s): Left common/superficial/profunda femoral thromboendarterectomy with bovine patch repair Left external iliac artery/FILLING MACHINE OPERATOR stent Attending Surgeon(s): * Terrell Gautam - Primary Immersion Metalcleaner(s): * Luna Beckett MD - Resident - Assisting * Dandy Baltazar MD - Fellow Anesthesia: General ASA: III Blood Administration: Blood Product Administration History None Estimated Blood Loss: 300 mL Drains: Urethral Catheter Temperature probe 16 Fr. (Active) Implants Type Name Action Serial No. VASCUGUARD 8 X 8 - [id number] Implanted STENT ENDOPROSTHESIS VIABAHN 9FR [id number] - [id number] Implanted [id number] Specimen: Specimens ID Source Frozen? 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 He previouslyunderwent thrombin injection. He reports pain in his calves. He presents today for scheduled left lower extremity femoral to rreqt-tia-fazw popliteal bypass. Planned likely use PTFE. He [...] 16. Results Review {Vanishing Link Review Results :[id number] I have reviewed the latest lab and imaging results. Assessment & Plan Critical limb ischemia of left lower extremity Proceed with scheduled surgery left lower extremity femoral to yqemg-mjz-xeya popliteal artery bypass graft. Extensive discussion had [...] Description 12/13/2024 2:00 PM EDT Office Visit [facility] [address] [place] [address] [place] Appiah MD [address] [facility] [address] [place] [address] 12/19/2024 7:[address] [facility] [address] [facility] 5th Floor [address] [place] [address] 12/19/2024 8:[address] [facility] [address] [place] [address] 12/19/2024 9:00 AM EDT Office Visit [facility] [address] [place] [address] Nathaly Nowak MD [address] [place] [address] Pending Results Name Type Priority [...] PREPARE RBC STAT 10/17/2024 8:06 AM EDT WI VEIN BYPASS GRAFT,FEM-POP 10/17/2024 7:38 AM EDT [...] Comment 10/19/2024 11:42 AM EDT HEALTHCARE LAB Nail Polish Brush Machine Feeder ID KamranJob 10/20/19 11:42 AM EDT [facility] Device ID [id number] 10/19/2024 11:42 AM EDT [facility] Specimen Type POC Capillary 10/19/2024 11:42 AM EDT [facility] Blood Capillary blood specimen / Unknown 10/19/2024 11:40 AM EDT 10/19/2024 11:42 AM EDT us Terrell Gautam MD LAB POINT OF CARE TE ST DOCKED DEVICE UNSOLICITED RESULTS Final Result Performing Organization Address City/State/[facility] Co de Phone Number HEALTHCARE LAB [address] [place] [address] * (ABNORMAL) Protime-INR (10/19/2024 8:25 AM EDT) Prothrombin Time 17.5(H) 12.0 - 14.3 sec LAB COAGULATION METHOD 10/19/2024 9:25 AM EDT [facility] INR 1.4(H) 0.9 - 1.1 LAB COAGULATION METHOD 10/19/2024 9:25 AM EDT [facility] Blood Venous blood specimen / Unknown Venipuncture / Unknown 10/19/2024 8:25 AM EDT 10/19/2024 8:43 AM EDT Narrative [facility] - 10/19/2024 9:25 AM EDT OPTIMAL INR RANGES FOR PATIENT ON ORAL ANTICOAGULANT THERAPY Prevention of venous thromboembolism INR 2.0 to 3.0 In patients with heart disease: Atrial fibrillation INR 2.0 to 3.0 Valvular heart disease INR 2.0 to 3.0 Tissue heart valves INR 2.0 to 3.0 Mechanical prosthetic valves INR 2.5 to 3.5 Prevention of recurrent VA INR 2.5 to 3.5 Nirmal Cueto MD LAB BLOOD ORDERABLES Final Result Performing Organization Address City/[facility]/ZIP Co de Phone Number [facility] [address] [place] [address] * (ABNORMAL) Phosphorus (10/19/2024 8:25 AM EDT) Phosphorus, Plasma 2.2(L) 2.5 - 4.5 mg/dL 10/19/2024 9:12 AM EDT [facility] Blood Venous blood specimen / Unknown Venipuncture / Unknown 10/19/2024 8:25 AM EDT 10/19/2024 8:43 AM EDT Nirmal Cueto MD LAB BLOOD ORDERABLES Final Result Performing Organization Address City/[facility]/ZIP Co de Phone Number [facility] [address] [place] [address] * Magnesium (10/19/2024 8:25 AM EDT) Magnesium, Plasma 2.1 1.9 - 2.4 mg/dL 10/19/2024 9:12 AM EDT [facility] Blood Venous blood specimen / Unknown Venipuncture / Unknown 10/19/2024 8:25 AM EDT 10/19/2024 8:43 AM EDT Nirmal Cueto MD LAB BLOOD ORDERABLES Final Result Performing Organization Address City/[facility]/ZIP Co de Phone Number [facility] [address] [place] [address] * (ABNORMAL) Basic metabolic panel (10/19/2024 8:25 AM EDT) Glucose, Plasma 191(H) 74 - 99 mg/dL 10/19/2024 9:12 AM EDT [facility] BUN, Plasma 18 8 - 23 mg/dL 10/19/2024 9:12 AM EDT [facility] Creatinine, Plasma 0.76 0.70 - 1.20 mg/dL 10/19/2024 9:12 AM EDT [facility] BUN/Creatinine Ratio 24 10/19/2024 9:12 AM EDT [facility] Sodium, Plasma 135(L) 136 - 145 mmol/L 10/19/2024 9:12 AM EDT [facility] Potassium, Plasma 4.1 3.6 - 4.9 mmol/L 10/19/2024 9:12 AM EDT [facility] Chloride, Plasma 104 97 - 107 mmol/L 10/19/2024 9:12 AM EDT [facility] CO2, Plasma 22 22 - 29 mmol/L 10/19/2024 9:12 AM EDT [facility] Anion Gap 9 6 - 16 mmol/L 10/19/2024 9:12 AM EDT [facility] Total Calcium, Plasma 8.4(L) 8.9 - 10.2 mg/dL 10/19/2024 9:12 AM EDT [facility] eGFRcr 99.7 mL/min/1.7 3m*2 10/19/2024 9:12 AM EDT [facility] Comment:Reported eGFRcr in m L/min/1.73m2 is based the CKD-EPI 2020 equation that does not use a race coefficient. Blood Venous blood specimen / Unknown Venipuncture / Unknown 10/19/2024 8:25 AM EDT 10/19/2024 8:43 AM EDT us Nirmal Cueto MD LAB BLOOD ORDERABLES Final Result [facility] [address] [place] [address] * (ABNORMAL) CBC W/O Differential (10/19/2024 8:25 AM EDT) WBC Count 14.10(H) 3.70 - 10.30 10*3/uL LAB HEMATOLOGY METHOD 10/19/2024 8:52 AM EDT [facility] RBC Count 2.61(L) 4.60 - 6.10 10*6/uL LAB HEMATOLOGY METHOD 10/19/2024 8:52 AM EDT [facility] HGB 8.0(L) 13.7 - 17.5 g/dL LAB HEMATOLOGY METHOD 10/19/2024 8:52 AM EDT [facility] HCT 24.3(L) 40.0 - 51.0 % LAB HEMATOLOGY METHOD 10/19/2024 8:52 AM EDT [facility] Platelet Count 318 155 - 369 10*3/uL LAB HEMATOLOGY METHOD 10/19/2024 8:52 AM EDT [facility] MCV 93 79 - 98 fL LAB HEMATOLOGY METHOD 10/19/2024 8:52 AM EDT [facility] MCH 30.7 26.0 - 32.0 pg LAB HEMATOLOGY METHOD 10/19/2024 8:52 AM EDT [facility] MCHC 32.9 30.7 - 35.5 g/dL LAB HEMATOLOGY METHOD 10/19/2024 8:52 AM EDT [facility] RDW 13.4 11.5 - 14.5 % LAB HEMATOLOGY METHOD 10/19/2024 8:52 AM EDT [facility] MPV 9.6 8.8 - 12.5 fL LAB HEMATOLOGY METHOD 10/19/2024 8:52 AM EDT [facility] nRBC 0.0 <=0.0 per 100 WBCs LAB HEMATOLOGY METHOD 10/19/2024 8:52 AM EDT [facility] Blood Venous blood specimen / Unknown Venipuncture / Unknown 10/19/2024 8:25 AM EDT 10/19/2024 8:44 AM EDT us Nirmal Cueto MD LAB BLOOD ORDERABLES Final Result [facility] [address] [place] [address] * (ABNORMAL) POCT glucose meter (10/19/2024 7:35 AM EDT) Pathologist [facility] POCT Glucose 187(H) 74 - 99 mg/dL [...] Comment 10/19/2024 7:37 AM EDT [facility] Nail Polish Brush Machine Feeder ID Job Andrew 10/20/19 7:37 AM EDT [facility] Device ID [id number] 10/19/2024 7:37 AM EDT [facility] Specimen Type POC Capillary 10/19/2024 7:37 AM EDT [facility] Blood Capillary blood specimen / Unknown 10/19/2024 7:35 AM EDT 10/19/2024 7:37 AM EDT us Terrell Gautam MD LAB POINT OF CARE TE ST DOCKED DEVICE UNSOLICITED RESULTS Final Result Performing Organization Address City/State/[facility] Co de Phone Number [facility] [address] [place] [address] * (ABNORMAL) POCT glucose meter (10/18/2024 7:22 PM EDT) [facility] POCT Glucose 178(H) 74 - [...] 10/18/2024 7:24 PM EDT [facility] Nail Polish Brush Machine Feeder ID Mahesh Aldana 10/18/2024 7:24 PM EDT [facility] Device ID [id number] 10/18/2024 7:24 PM EDT [facility] Specimen Type POC Capillary 10/18/2024 7:24 PM EDT [facility] Blood Capillary blood specimen / Unknown 10/18/2024 7:22 PM EDT 10/18/2024 7:24 PM EDT Terrell Gautam MD LAB POINT OF CARE TE ST DOCKED DEVICE UNSOLICITED RESULTS Final Result Performing Organization Address City/[facility]/ZIP Co de Phone Number [facility] [address] [place] [address] * (ABNORMAL) POCT glucose meter (10/18/2024 6:07 [...] Comment 10/18/2024 6:09 PM EDT [facility] Nail Polish Brush Machine Feeder ID David Parks 10/18/2024 6:09 PM EDT [facility] Device ID [id number] 10/18/2024 6:09 PM EDT [facility] Specimen Type POC Capillary 10/18/2024 6:09 PM EDT [facility] Blood Capillary blood specimen / Unknown 10/18/2024 6:07 PM EDT 10/18/2024 6:09 PM EDT us Terrell Gautam MD LAB POINT OF CARE TE ST DOCKED DEVICE UNSOLICITED RESULTS Final Result [facility] [address] [place] [address] * (ABNORMAL) POCT glucose meter (10/18/2024 11:56 [...] Comment 10/21/2024 7:42 AM EDT [facility] Nail Polish Brush Machine Feeder ID Venessa Marcano 10/21/2024 7:42 AM EDT [facility]ARE [facility] Device ID [id number] 10/21/2024 7:42 AM EDT [facility] Specimen Type POC Capillary 10/21/2024 7:42 AM EDT [facility] Blood Capillary blood specimen / Unknown 10/18/2024 11:56 AM EDT 10/21/2024 7:42 AM EDT us Terrell Gautam MD LAB POINT OF CARE TE ST DOCKED DEVICE UNSOLICITED RESULTS Final Result Performing Organization Address City/State/[facility] de Phone Number [facility] [address] [place] [address] * (ABNORMAL) POCT glucose meter (10/18/2024 9:24 [...] Comment 10/21/2024 7:42 AM EDT [facility] Nail Polish Brush Machine Feeder ID Emilia Alonso 7:42 AM EDT [facility]ARE LAB Device ID [id number] 10/21/2024 7:42 AM EDT [facility] Specimen Type POC Venous 10/21/2024 7:42 AM EDT [facility] Blood Venous blood specimen / Unknown 10/18/2024 9:24 AM EDT 10/21/2024 7:42 AM EDT us Terrell Gautam MD LAB POINT OF CARE TE ST DOCKED DEVICE UNSOLICITED RESULTS Final Result [facility] [address] [place] [address] * (ABNORMAL) POCT glucose meter (10/18/2024 7:36 AM EDT) [facility] POCT Glucose 215(H) 74 - 99 mg/dL [...] for testing. Comment 10/18/2024 7:38 AM EDT [facility] Nail Polish Brush Machine Feeder ID Kizzy Godfrey 025 7:38 AM EDT [facility]ALTH[facility]ARE [facility] Device ID [id number] 10/18/2024 7:38 AM EDT [facility] Specimen Type POC Capillary 10/18/2024 7:38 AM EDT [facility] Blood Capillary blood specimen / Unknown 10/18/2024 7:36 AM EDT 10/18/2024 7:38 AM EDT Terrell Gautam MD LAB POINT OF CARE TE ST DOCKED DEVICE UNSOLICITED RESULTS Final Result [facility] [address] [place] [address] * (ABNORMAL) CBC (10/18/2024 2:09 AM EDT) [facility] WBC Count 16.71(H) 3.70 - 10.30 10*3/uL LAB HEMATOLOGY METHOD 10/18/2024 2:33 AM EDT [facility] RBC Count 2.78(L) 4.60 - 6.10 10*6/uL LAB HEMATOLOGY METHOD 10/18/2024 2:33 AM EDT [facility] HGB 8.5(L) 13.7 - 17.5 g/dL LAB HEMATOLOGY METHOD 10/18/2024 2:33 AM EDT [facility] HCT 25.7(L) 40.0 - 51.0 % LAB HEMATOLOGY METHOD 10/18/2024 2:33 AM EDT [facility] Platelet Count 324 155 - 369 10*3/uL LAB HEMATOLOGY METHOD 10/18/2024 2:33 AM EDT [facility] MCV 92 79 - 98 fL LAB HEMATOLOGY METHOD 10/18/2024 2:33 AM EDT [facility] MCH 30.6 26.0 - 32.0 pg LAB HEMATOLOGY METHOD 10/18/2024 2:33 AM EDT [facility] MCHC 33.1 30.7 - 35.5 g/dL LAB HEMATOLOGY METHOD 10/18/2024 2:33 AM EDT [facility] RDW 13.3 11.5 - 14.5 % LAB HEMATOLOGY METHOD 10/18/2024 2:33 AM EDT [facility] MPV 9.4 8.8 - 12.5 fL LAB HEMATOLOGY METHOD 10/18/2024 2:33 AM EDT [facility] nRBC 0.0 <=0.0 per 100 WBCs LAB HEMATOLOGY METHOD 10/18/2024 2:33 AM EDT [facility] Blood Venous blood specimen / Unknown Venipuncture / Unknown 10/18/2024 2:09 AM EDT 10/18/2024 2:25 AM EDT Nirmal Cueto MD LAB BLOOD ORDERABLES Final Result [facility] [address] [place] [address] * (ABNORMAL) Basic metabolic panel (10/18/2024 2:09 AM EDT) Pathologist [facility] Glucose, Plasma 206(H) 74 - 99 mg/dL 10/18/2024 2:53 AM EDT [facility] BUN, Plasma 24(H) 8 - 23 mg/dL 10/18/2024 2:53 AM EDT [facility] Creatinine, Plasma 1.17 0.70 - 1.20 mg/dL 10/18/2024 2:53 AM EDT [facility] BUN/Creatinine Ratio 21 10/18/2024 2:53 AM EDT [facility] Sodium, Plasma 136 136 - 145 mmol/L 10/18/2024 2:53 AM EDT [facility] Potassium, Plasma 4.8 3.6 - 4.9 mmol/L 10/18/2024 2:53 AM EDT [facility] Chloride, Plasma 104 97 - 107 mmol/L 10/18/2024 2:53 AM EDT [facility] CO2, Plasma 22 22 - 29 mmol/L 10/18/2024 2:53 AM EDT [facility] Anion Gap 10 6 - 16 mmol/L 10/18/2024 2:53 AM EDT [facility] Total Calcium, Plasma 8.5(L) 8.9 - 10.2 mg/dL 10/18/2024 2:53 AM EDT [facility] eGFRcr 69.2 mL/min/1.7 3m*2 10/18/2024 2:53 AM EDT [facility] Comment:Reported eGFRcr in m L/min/1.73m2 is based the CKD-EPI 2020 equation that does not use a race coefficient. Blood Venous blood specimen / Unknown Venipuncture / Unknown 10/18/2024 2:09 AM EDT 10/18/2024 2:25 AM EDT Nirmal Cueto MD LAB BLOOD ORDERABLES Final Result [facility] [address] [place] [address] * (ABNORMAL) Magnesium (10/18/2024 2:09 AM EDT) Magnesium, Plasma 1.8(L) 1.9 - 2.4 mg/dL 10/18/2024 2:53 AM EDT [facility] Blood Venous blood specimen / Unknown Venipuncture / Unknown 10/18/2024 2:09 AM EDT 10/18/2024 2:25 AM EDT Nirmal Cueto MD LAB BLOOD ORDERABLES Final Result [facility] [address] [place] [address] * Phosphorus (10/18/2024 2:09 AM EDT) Phosphorus, Plasma 3.7 2.5 - 4.5 mg/dL 10/18/2024 2:53 AM EDT [facility] Blood Venous blood specimen / Unknown Venipuncture / Unknown 10/18/2024 2:09 AM EDT 10/18/2024 2:25 AM EDT Nirmal Cueto MD LAB BLOOD ORDERABLES Final Result Performing Organization Address City/[facility]/ZIP Co de Phone Number [facility] [address] [place] [address] * (ABNORMAL) Protime-INR (10/18/2024 2:09 AM EDT) Prothrombin Time 14.5(H) 12.0 - 14.3 sec LAB COAGULATION METHOD 10/18/2024 2:53 AM EDT [facility] INR 1.1 0.9 - 1.1 LAB COAGULATION METHOD 10/18/2024 2:53 AM EDT [facility] Blood Venous blood specimen / Unknown Venipuncture / Unknown 10/18/2024 2:09 AM EDT 10/18/2024 2:25 AM EDT Narrative [facility] - 10/18/2024 2:53 AM EDT OPTIMAL INR RANGES FOR PATIENT ON ORAL ANTICOAGULANT THERAPY Prevention of venous thromboembolism INR 2.0 to 3.0 In patients with heart disease: Atrial fibrillation INR 2.0 to 3.0 Valvular heart disease INR 2.0 to 3.0 Tissue heart valves INR 2.0 to 3.0 Mechanical prosthetic valves INR 2.5 to 3.5 Prevention of recurrent VA INR 2.5 to 3.5 us Nirmal Cueto MD LAB BLOOD ORDERABLES Final Result Performing Organization Address City/[facility]/ZIP Co de Phone Number [facility] [address] [place] [address] * (ABNORMAL) POCT glucose meter (10/18/2024 2:08 AM EDT) [facility] POCT Glucose 202(H) 74 - [...] Comment 10/18/2024 2:10 AM EDT [facility] Nail Polish Brush Machine Feeder ID Jourdan Grimes II 10/18/2024 2:10 AM EDT [facility] Device ID [id number] 10/18/2024 2:10 AM EDT [facility] Specimen Type POC Capillary 10/18/2024 2:10 AM EDT [facility] Blood Capillary blood specimen / Unknown 10/18/2024 2:08 AM EDT 10/18/2024 2:10 AM EDT us Terrell Gautam MD LAB POINT OF CARE TE ST DOCKED DEVICE UNSOLICITED RESULTS Final Result Performing Organization Address City/State/[facility] Co de Phone Number [facility] [address] [place] [address] * (ABNORMAL) POCT glucose meter (10/17/2024 10:07 PM EDT) [facility] POCT Glucose 300(H) 74 - [...] Comment 10/17/2024 10:10 PM EDT [facility] Nail Polish Brush Machine Feeder ID Jourdan Grimes II 10/17/2024 10:10 PM EDT [facility] Device ID [id number] 10/17/2024 10:10 PM EDT [facility] Specimen Type POC Capillary 10/17/2024 10:10 PM EDT [facility] Blood Capillary blood specimen / Unknown 10/17/2024 10:07 PM EDT 10/17/2024 10:10 PM EDT Terrell Gautam MD LAB POINT OF CARE TE ST DOCKED DEVICE UNSOLICITED RESULTS Final Result Performing Organization Address City/[facility] de Phone Number [facility] [address] [place] [address] * (ABNORMAL) POCT glucose meter (10/17/2024 8:07 [...] Comment 10/17/2024 8:10 PM EDT [facility] Nail Polish Brush Machine Feeder ID Jourdan Grimes II 10/17/2024 8:10 PM EDT [facility] Device ID [id number] 10/17/2024 8:10 PM EDT [facility] Specimen Type POC Capillary 10/17/2024 8:10 PM EDT [facility] Blood Capillary blood specimen / Unknown 10/17/2024 8:07 PM EDT 10/17/2024 8:10 PM EDT Terrell Gautam MD LAB POINT OF CARE TE ST DOCKED DEVICE UNSOLICITED RESULTS Final Result Performing Organization Address City/[facility]/ZIP Co de Phone Number [facility] [address] [place] [address] * (ABNORMAL) POCT glucose meter (10/17/2024 4:01 [...] Comment 10/17/2024 4:03 PM EDT [facility] Nail Polish Brush Machine Feeder ID Keisha Waller 10/17/2024 4:03 PM EDT [facility] Device ID [id number] 10/17/2024 4:03 PM EDT [facility] Specimen Type POC Capillary 10/17/2024 4:03 PM EDT [facility] Blood Capillary blood specimen / Unknown 10/17/2024 4:01 PM EDT 10/17/2024 4:03 PM EDT us Terrell Gautam MD LAB POINT OF CARE TE ST DOCKED DEVICE UNSOLICITED RESULTS Final Result Performing Organization Address City/State/[facility] Co de Phone Number [facility] [address] [place] [address] * (ABNORMAL) POCT glucose meter (10/17/2024 1:25 PM EDT) [facility] POCT Glucose 225(H) 74 - [...] 10/17/2024 1:27 PM EDT [facility] Nail Polish Brush Machine Feeder ID Kizzy Godfrey 025 1:27 PM EDT [facility] LAB Device ID [id number] 10/17/2024 1:27 PM EDT [facility] Specimen Type POC Capillary 10/17/2024 1:27 PM EDT [facility] Blood Capillary blood specimen / Unknown 10/17/2024 1:25 PM EDT 10/17/2024 1:27 PM EDT us Terrell Gautam MD LAB POINT OF CARE TE ST DOCKED DEVICE UNSOLICITED RESULTS Final Result Performing Organization Address City/[facility]/ZIP Co de Phone Number [facility] [address] [place] [address] * [place] Less than 1 Hour Intraoperative (10/17/2024 1:18 PM EDT) Narrative IMAGING - 10/17/2024 2:05 PM EDT Images were obtained for surgical purposes. See Terrell Gautam's surgical note in the patient's chart for the findings. Terrell Gautam MD IMG FLUOROSCOPY PROCEDURES Fi nal Result Performing Organization Address [facility] Co de Phone Number IMAGING * POCT ACT (10/17/2024 12:23 PM EDT) ACT+ (HIGH RANGE) 211 68 - 600 Seconds 10/29/2024 7:28 AM EDT [facility] Nail Polish Brush Machine Feeder ID Donna Mcmillan 10/29/2024 7:28 AM EDT [facility] ACT Device ID [id number] 10/29/2024 7:28 AM EDT [facility] Comment 10/29/2024 7:28 AM EDT [facility] Comment: ACT performed by staff [...] UNSOLICITED RESULTS Final Result Performing Organization Address [facility] Co de Phone Number [facility] [address] [place], [place] [id number] [place] [address] LAB [address] [place] [address] * (ABNORMAL) Blood gas, arterial (10/17/2024 11:48 AM EDT) pH, Arterial 7.34 7.31 - 7.42 LAB HEMATOLOGY METHOD 10/17/2024 11:54 AM EDT [facility] pCO2, Arterial 41 32 - 45 mmHg LAB HEMATOLOGY METHOD 10/17/2024 11:54 AM EDT [facility] pO2, Arterial 202 >80 mmHg LAB HEMATOLOGY METHOD 10/17/2024 11:54 AM EDT [facility] SO2, Measured, Arterial 100(H) 94 - 98 % LAB HEMATOLOGY METHOD 10/17/2024 11:54 AM EDT [facility] Base Excess, Arterial -3.2(L) -2.0 - 3.0 mmol/L LAB HEMATOLOGY METHOD 10/17/2024 11:54 AM EDT [facility] Bicarbonate, Calculated, Arterial 22 22 - 26 mmol/L LAB HEMATOLOGY METHOD 10/17/2024 11:54 AM EDT [facility] Hematocrit, Whole Blood 28.6(L) 40.0 - 51.0 % LAB HEMATOLOGY METHOD 10/17/2024 11:54 AM EDT [facility] Sodium, Whole Blood 137 136 - 145 mmol/L LAB HEMATOLOGY METHOD 10/17/2024 11:54 AM EDT [facility] Potassium, Whole Blood 4.5 3.6 - 4.9 mmol/L LAB HEMATOLOGY METHOD 10/17/2024 11:54 AM EDT [facility] Chloride, Whole Blood 112(H) 97 - 107 mmol/L LAB HEMATOLOGY METHOD 10/17/2024 11:54 AM EDT [facility] Glucose, Whole Blood 201(H) 74 - 99 mg/dL LAB HEMATOLOGY METHOD 10/17/2024 11:54 AM EDT [facility] Ionized Calcium, Whole Blood 4.8 4.6 - 5.1 mg/dL LAB HEMATOLOGY METHOD 10/17/2024 11:54 AM EDT [facility] Lactate, Arterial, Whole Blood 2.3(H) 0.5 - 1.6 mmol/L LAB HEMATOLOGY METHOD 10/17/2024 11:54 AM EDT [facility] Blood Arterial blood specimen / Unknown Arterial Puncture / Unknown 10/17/2024 11:48 AM EDT 10/17/2024 11:53 AM EDT us Jenna Lopez CRNA LAB BLOOD ORDERABLES Final Re sult [facility] [address] [place] [address] * POCT ACT (10/17/2024 11:41 AM EDT) ACT+ (HIGH RANGE) 175 68 - 600 Seconds 10/29/2024 7:28 AM EDT [facility] Nail Polish Brush Machine Feeder ID Oneyda Alicea 10/29/2024 7:28 AM EDT [facility] ACT Device ID [id number] 10/29/2024 7:28 AM EDT [facility] Comment 10/29/2024 7:28 AM EDT [facility] Comment: ACT performed by staff [...] ST DOCKED DEVICE UNSOLICITED RESULTS Final Result [facility] [address] LAB [address] [place] [address] * POCT ACT (10/17/2024 11:11 AM EDT) ACT+ (HIGH RANGE) 252 68 - 600 Seconds 10/29/2024 7:28 AM EDT [facility] Nail Polish Brush Machine Feeder ID Donna Mcmillan 10/29/2024 7:28 AM EDT [facility] ACT Device ID [id number] 10/29/2024 7:28 AM EDT [facility] Comment 10/29/2024 7:28 AM EDT [facility] Comment: ACT performed by staff [...] DOCKED DEVICE UNSOLICITED RESULTS Final Result [facility] [address] LAB [address] [place] [address] * (ABNORMAL) Blood gas, arterial (10/17/2024 10:46 AM EDT) pH, Arterial 7.35 7.31 - 7.42 LAB HEMATOLOGY METHOD 10/17/2024 10:56 AM EDT [facility] pCO2, Arterial 42 32 - 45 mmHg LAB HEMATOLOGY METHOD 10/17/2024 10:56 AM EDT [facility] pO2, Arterial 161 >80 mmHg LAB HEMATOLOGY METHOD 10/17/2024 10:56 AM EDT [facility] SO2, Measured, Arterial 100(H) 94 - 98 % LAB HEMATOLOGY METHOD 10/17/2024 10:56 AM EDT [facility] Base Excess, Arterial -2.2(L) -2.0 - 3.0 mmol/L LAB HEMATOLOGY METHOD 10/17/2024 10:56 AM EDT [facility] Bicarbonate, Calculated, Arterial 23 22 - 26 mmol/L LAB HEMATOLOGY METHOD 10/17/2024 10:56 AM EDT [facility] Hematocrit, Whole Blood 29.9(L) 40.0 - 51.0 % LAB HEMATOLOGY METHOD 10/17/2024 10:56 AM EDT [facility] Sodium, Whole Blood 138 136 - 145 mmol/L LAB HEMATOLOGY METHOD 10/17/2024 10:56 AM EDT [facility] Potassium, Whole Blood 4.0 3.6 - 4.9 mmol/L LAB HEMATOLOGY METHOD 10/17/2024 10:56 AM EDT [facility] Chloride, Whole Blood 110(H) 97 - 107 mmol/L LAB HEMATOLOGY METHOD 10/17/2024 10:56 AM EDT [facility] Glucose, Whole Blood 174(H) 74 - 99 mg/dL LAB HEMATOLOGY METHOD 10/17/2024 10:56 AM EDT [facility] Ionized Calcium, Whole Blood 5.1 4.6 - 5.1 mg/dL LAB HEMATOLOGY METHOD 10/17/2024 10:56 AM EDT [facility] Lactate, Arterial, Whole Blood 1.4 0.5 - 1.6 mmol/L LAB HEMATOLOGY METHOD 10/17/2024 10:56 AM EDT [facility] Blood Arterial blood specimen / Unknown Arterial Puncture / Unknown 10/17/2024 10:46 AM EDT 10/17/2024 10:54 AM EDT us Jenna Lopez CRNA LAB BLOOD ORDERABLES Final Re sult [facility] [address] [place] [address] * POCT ACT (10/17/2024 10:37 AM EDT) ACT+ (HIGH RANGE) 206 68 - 600 Seconds 10/29/2024 7:28 AM EDT [facility] Nail Polish Brush Machine Feeder ID Donna Mcmillan 10/29/2024 7:28 AM EDT [facility] ACT Device ID [id number] 10/29/2024 7:28 AM EDT [facility] Comment 10/29/2024 7:28 AM EDT [facility] Comment: ACT performed by staff [...] ST DOCKED DEVICE UNSOLICITED RESULTS Final Result [facility] [address] LAB [address] [place] [address] * Surgical Pathology Exam (10/17/2024 10:27 AM EDT) Case Report Surgical Pathology Case: [id number] Authorizing Provider: Terrell Gautam MD Collected: 10/17/2024 1027 Ordering Location: [facility] A OPERATING ROOM Received: 10/17/2024 1325 Pathologist: Haydee Osborne MD Specimen: Other (specify site), left common femoral plaque 10/21/2024 10:16 AM EDT [facility] Final Diagnosis A. LEFT COMMON FEMORAL PLAQUE, EXCISION: - CALCIFIED PLAQUE 10/21/2024 10:16 AM EDT [facility] at 1016 EDT Clinical Information Critical limb ischemia of left lower extremity [I70.222] 10/21/2024 10:16 AM EDT [facility] Gross Description A. LEFT COMMON FEMORAL PLAQUE Received in formalin labeled l eft common femoral plaque , is one aggregate of red-gabriel hard portions of plaque measuring 3.7 x 2.5 x 0.9 cm. The specimen is serially sectioned and hospital sales representative sections are submitted in cassette A1. Cold Time: <1m Kenia Aceves 10/21/2024 10:16 AM EDT [facility] Note: A resident was involved in the service. I attest I examined the relevant preparations for the specimens and confirmed the diagnosis or interpretation. 10/21/2024 10:16 AM EDT [facility] Tissue Topography unknown / Unknown 10/17/2024 10:27 AM EDT 10/17/2024 1:25 PM EDT Comment:Pre-op diagnosis: Critical limb ischemia of left lower extremity [I70.222] us Terrell Gautam MD LAB PATHOLOGY ORDERABLES Gwen grimaldo Result [facility] [address] [place] [address] * POCT ACT (10/17/2024 10:03 AM EDT) ACT+ (HIGH RANGE) 244 68 - 600 Seconds 10/29/2024 7:28 AM EDT [facility] Nail Polish Brush Machine Feeder ID Donna Mcmillan Maya 10/29/2024 7:28 AM EDT [facility] ACT Device ID [id number] 10/29/2024 7:28 AM EDT [facility] Comment 10/29/2024 7:28 AM EDT [facility] Comment: ACT performed by staff [...] ST DOCKED DEVICE UNSOLICITED RESULTS Final Result [facility] [address] [place] [address] * (ABNORMAL) Blood gas, arterial (10/17/2024 9:45 AM EDT) pH, Arterial 7.37 7.31 - 7.42 LAB HEMATOLOGY METHOD 10/17/2024 9:55 AM EDT [facility] pCO2, Arterial 43 32 - 45 mmHg LAB HEMATOLOGY METHOD 10/17/2024 9:55 AM EDT [facility] pO2, Arterial 177 >80 mmHg LAB HEMATOLOGY METHOD 10/17/2024 9:55 AM EDT [facility] SO2, Measured, Arterial 100(H) 94 - 98 % LAB HEMATOLOGY METHOD 10/17/2024 9:55 AM EDT [facility] Base Excess, Arterial -0.5 -2.0 - 3.0 mmol/L LAB HEMATOLOGY METHOD 10/17/2024 9:55 AM EDT [facility] Bicarbonate, Calculated, Arterial 25 22 - 26 mmol/L LAB HEMATOLOGY METHOD 10/17/2024 9:55 AM EDT [facility] Hematocrit, Whole Blood 30.0(L) 40.0 - 51.0 % LAB HEMATOLOGY METHOD 10/17/2024 9:55 AM EDT [facility] Sodium, Whole Blood 137 136 - 145 mmol/L LAB HEMATOLOGY METHOD 10/17/2024 9:55 AM EDT [facility] Potassium, Whole Blood 4.3 3.6 - 4.9 mmol/L LAB HEMATOLOGY METHOD 10/17/2024 9:55 AM EDT [facility] Chloride, Whole Blood 108(H) 97 - 107 mmol/L LAB HEMATOLOGY METHOD 10/17/2024 9:55 AM EDT [facility] Glucose, Whole Blood 191(H) 74 - 99 mg/dL LAB HEMATOLOGY METHOD 10/17/2024 9:55 AM EDT [facility] Ionized Calcium, Whole Blood 5.0 4.6 - 5.1 mg/dL LAB HEMATOLOGY METHOD 10/17/2024 9:55 AM EDT [facility] Lactate, Arterial, Whole Blood 1.3 0.5 - 1.6 mmol/L LAB HEMATOLOGY METHOD 10/17/2024 9:55 AM EDT [facility] Blood Arterial blood specimen / Unknown Arterial Line / Unknown 10/17/2024 9:45 AM EDT 10/17/2024 9:52 AM EDT Jenna Lopez CRNA LAB BLOOD ORDERABLES Final Re sult [facility] [address] [place] [address] * (ABNORMAL) Blood gas, arterial (10/17/2024 8:47 AM EDT) pH, Arterial 7.37 7.31 - 7.42 LAB HEMATOLOGY METHOD 10/17/2024 8:59 AM EDT [facility] pCO2, Arterial 43 32 - 45 mmHg LAB HEMATOLOGY METHOD 10/17/2024 8:59 AM EDT [facility] pO2, Arterial 205 >80 mmHg LAB HEMATOLOGY METHOD 10/17/2024 8:59 AM EDT [facility] SO2, Measured, Arterial 100(H) 94 - 98 % LAB HEMATOLOGY METHOD 10/17/2024 8:59 AM EDT [facility] Base Excess, Arterial -0.3 -2.0 - 3.0 mmol/L LAB HEMATOLOGY METHOD 10/17/2024 8:59 AM EDT [facility] Bicarbonate, Calculated, Arterial 25 22 - 26 mmol/L LAB HEMATOLOGY METHOD 10/17/2024 8:59 AM EDT [facility] Hematocrit, Whole Blood 31.3(L) 40.0 - 51.0 % LAB HEMATOLOGY METHOD 10/17/2024 8:59 AM EDT [facility] Sodium, Whole Blood 138 136 - 145 mmol/L LAB HEMATOLOGY METHOD 10/17/2024 8:59 AM EDT [facility] Potassium, Whole Blood 4.0 3.6 - 4.9 mmol/L LAB HEMATOLOGY METHOD 10/17/2024 8:59 AM EDT [facility] Chloride, Whole Blood 108(H) 97 - 107 mmol/L LAB HEMATOLOGY METHOD 10/17/2024 8:59 AM EDT [facility] Glucose, Whole Blood 162(H) 74 - 99 mg/dL LAB HEMATOLOGY METHOD 10/17/2024 8:59 AM EDT [facility] Ionized Calcium, Whole Blood 5.2(H) 4.6 - 5.1 mg/dL LAB HEMATOLOGY METHOD 10/17/2024 8:59 AM EDT [facility] Lactate, Arterial, Whole Blood 1.7(H) 0.5 - 1.6 mmol/L LAB HEMATOLOGY METHOD 10/17/2024 8:59 AM EDT [facility] Blood Arterial blood specimen / Unknown Arterial Puncture / Unknown 10/17/2024 8:47 AM EDT 10/17/2024 8:58 AM EDT us Jenna Lopez [facility] BLOOD ORDERABLES Final Re sult [facility] [address] [place] [address] * POCT ACT (10/17/2024 8:46 AM EDT) ACT+ (HIGH RANGE) 101 68 - 600 Seconds 10/29/2024 7:28 AM EDT [facility] Nail Polish Brush Machine Feeder ID Donna Mcmillan Maya 10/29/2024 7:28 AM EDT [facility] ACT Device ID [id number] 10/29/2024 7:28 AM EDT [facility] Comment 10/29/2024 7:28 AM EDT [facility] Comment: ACT performed by staff [...] UNSOLICITED RESULTS Final Result Performing Organization Address [facility] Co de Phone Number [facility]ALTH[facility]ARE LAB [address] LAB [address] [place] [address] * Type and Screen (10/17/2024 7:19 AM EDT) Pathologist [facility] ABO/Rh A Negative 10/17/2024 7:04 AM EDT BLOOD BANK Antibody Screen Negative 10/17/2024 7:04 AM EDT BLOOD BANK Specimen Expiration 10/20/2024 23:59 10/17/2024 7:04 AM EDT BLO[facility] BANK Blood Venous blood specimen / Unknown Venipuncture / Unknown 10/17/2024 7:19 AM EDT 10/17/2024 7:28 AM EDT us Maria Fernanda Mccallum MD LAB BLOOD BANK TEST ORDERAB LES Final Result Performing Organization Address [facility] de Phone Number BLOOD BANK [address] [place] [address] * (ABNORMAL) POCT glucose meter (10/17/2024 6:44 AM EDT) [facility] POCT Glucose 178(H) 74 - [...] 10/17/2024 6:49 AM EDT [facility] Nail Polish Brush Machine Feeder ID Hunter Burroughs 10/18/19 6:49 AM EDT [facility] Device ID [id number] 10/17/2024 6:49 AM EDT [facility]ALTH[facility]ARE LAB Specimen Type POC Capillary 10/17/2024 6:49 AM EDT [facility] Blood Capillary blood specimen / Unknown 10/17/2024 6:44 AM EDT 10/17/2024 6:49 AM EDT Terrell Gautam MD LAB POINT OF CARE TE ST DOCKED DEVICE UNSOLICITED RESULTS Final Result [facility] [address] [place] [address] documented in this encounter Visit Diagnoses Diagnosis [...] documented as of this encounter Care Teams Spike Machine Feeder Relationship Specialty Start Date End Date Asad Victor MD [address] [place] [id number] PCP - General 10/07/22 documented as of this encounter
--- OUTSIDE RECORDS SUMMARY | 2024-10-17 07:51 | XMS_ITS | Encounter Summary ---
Author Organization [facility] Address [address] [id number] Care Team Providers Care Gelatin Dynamite Packing Operator Name Role Phone Asad Victor MD Primary Care Provider + [phone] Reason for Visit * Auth/Cert (Routine) Specialty Diagnoses / Procedures Referred By Contac t Referred To Contact Diagnoses Critical limb ischemia of left lower extremity Critical limb ischemia of left lower extremity [I70.222] Procedures [place] VEIN BYPASS GRAFT,FEM-POP CREATION, BYPASS, ARTERIAL, FEMORAL TO POPLITEAL Terrell Gautam MD [address] [facility] [address] [place] [address] Phone: tel: fax: P[facility] A OPERATING ROOM [address] [place] [address] Phone: tel: Referral ID Status Reason Start Date Expiration Date Visits Re quested Visits Authorized [id number] 1 1 Encounter Details Date Type Department Care Team (Late st Contact Info) Description 10/17/2024 7:51 AM EDT Anesthesia Event [facility] RO[facility] [address] [place] [address] Maria Fernanda Mccallum MD [address] [place] [address] Anesthesia Record Procedure Summary Procedure [...] Hand; Site Prep: Chlorhexidine ; Local Anesth: [place]; Technique: Anatomical landmarks; Inserted by: CHRISTIAN Acuna; [...] drink first t dino in the morning (EYE-HVAC SALES ENGINEER) to steady your nerves or to [...] * Anesthesia Postprocedure Evaluation - Jenna Lopez, STUCCO MASON - 10/17/2024 1:29 PM EDT Patient: Moon Bobby Anesthesia Type: general Vitals Value Taken [...] by Swetha Villareal MD Staffing Performed: ISH STUCCO MASON: Jenna Lopez CRNA * Anesthesia Procedure Notes - Jenna Lopez CRNA - 10/17/2024 9:00 AM EDT Associated Order(s): Airway Airway Date/Time: 10/17/2024 8:03 AM Reason: elective Airway not difficult General Information and Staff Patient location during procedure: OR STUCCO MASON: Jenna Lopez CRNA Performed: STUCCO MASON Patient Condition Indications for airway management: anesthesia [...] CEA 2016 + 3rd degree AV block SPORTS SPECIALIST-P placed 08/2023 for Wenkeback with 11 sec pause + HLD + HTN - controlled + PAD 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 CORONARY ANGIOPLASTY Left Coronary Angiography With Concomitant Left Heart Catheterization from [employer] ??? CORONARY ARTERY BYPASS GRAFT N/A 2018 [...] Description 12/13/2024 2:00 PM EDT Office Visit [facility] [address] [place] [address] Oscar Appiah MD [address] [facility] [address] [place] [address] 12/19/2024 7:30 AM EDT Appointment [facility] [address] [place] [address] 12/19/2024 8:00 AM EDT Appointment [facility] [address] [place] [address] [address] [place] [address] 12/19/2024 9:00 AM EDT Office Visit [facility] [address] [place] [address] [address] [place] [address] Nathaly Nowak MD [address] [place] [address] [address] [place] [address] documented as of this encounter Goals Goal [...] ANESTHESIA PLACEHOLDER Routine 10/17/2024 8:03 AM EDT [place] AN ELECTIVE ENDOTRACHEAL AIRWAY Routine 10/17/2024 8:03 [...] Performed by Swetha Villareal MD Staffing Performed: STUCCO MASON STUCCO MASON: Jenna Lopez CRNA Maria Fernanda Mccallum MD ANESTHESIA ORDERABLES Edite d Result - Final * [place] AN ELECTIVE ENDOTRACHEAL AIRWAY, PB ANESTHESIA PLACEHOLDER (10/17/2024 8:03 AM EDT) Narrative Jenna Lopez CRNA - 10/17/2024 8:03 AM EDT Jenna Lopez CRNA 10/17/2024 9:00 AM Airway Date/Time: 10/17/2024 8:03 AM Reason: elective Airway not difficult General Information and Staff Patient location during procedure: OR STUCCO MASON: eJnna Lopez CRNA Performed: ISH Patient Condition Indications [...] Trace AR. The images were Saved in [employer]. The study was technically adequate. Comments: I [...] documented as of this encounter Care Teams Gelatin Dynamite Packing Operator Relationship Specialty Start Date End Date Asad Victor MD [address] [place] [address] PCP - General 10/07/22 documented as of this encounter
--- OUTSIDE RECORDS SUMMARY | 2024-10-17 08:00 | XMS_ITS | Encounter Summary ---
Author Organization [facility] Address [address] [place] [address] Care Team Providers Care Biodiesel Product Development Manager Name Role Phone Asad Victor MD Primary Care Provider + [phone] Reason for Visit * Auth/Cert (Routine) Specialty Diagnoses / Procedures Referred By Contac t Referred To Contact Diagnoses Critical limb ischemia of left lower extremity Critical limb ischemia of left lower extremity [I70.222] Procedures AL VEIN BYPASS GRAFT,FEM-POP CREATION, BYPASS, ARTERIAL, FEMORAL TO POPLITEAL Terrell Gautam MD [address] [address] Phone: tel: fax: [facility] [address] [place] [address] Phone: tel: Referral ID Status Reason Start Date Expiration Date Visits Re quested Visits Authorized [id number] 1 1 Encounter Details Date Type Department Care Team (Late st Contact Info) Description 10/17/2024 8:00 AM EDT - 10/17/2024 2:50 PM EDT Surgery [facility] [address] [place] [address] Terrell Gautam MD [address] [address] CREATION, BYPASS, ARTERIAL, FEMORAL TO POPLITEAL [59116 (CPT )] Surgery Details Date/Time Status Location [...] 1 Dandy Baltazar MD Fellow 1 Luna eBckett MD Resident - Assisting 1 documented in [...] time in the past 12 m [facility], were you homeless or living in a skilled nursing (including now)? No 10/18/2024 CAGE ASSESSMENT Answer [...] drink first t dino in the morning (EYE-STEWARD RACETRACK) to steady your nerves or to get rid of a hangover? 0 10/18/2021 CAGE Questionnaire Score 0 022 Utilities Answer Date Recorded In the past 12 months has th e [employer], gas, oil, or water [employer] threatened to shut off services in your [...] provided Taken 10/17/20242107 by Jourdan Grimes II, fuel distribution system operator Review/Management: medications reviewed Problem: Skin Injury Risk [...] Ongoing, Progressing Intervention: Promote Activity and Functional [employer] Flowsheets (Taken 10/19/2024 1048) Self-Care Promotion: BADL personal objects within reach meal set-up provided * Yuni Ramires - Keyla Chow - 10/19/2024 11:45 AM EDT Images from the original note were not included. [id number] After Peripheral Artery Bypass Surgery: In the [...] home. Last Reviewed Date: 2023 00:00:00 ?? [id number] [employer]. All rights reserved. This information is not intended as a substitute for professional medical care. Always follow your healthcare professional's instructions. * Progress Notes - Emelina Friend - 10/19/2024 11:44 AM EDT Case Management Adult Progress Note Bev Bobby 64 y.o. male CSN: [id number] Admission: 10/17/2024 6:21 AM Primary Problem: Critical [...] if any other needs arise. Emelina Friend LEATHER ETCHER, SENIOR UNDERWRITER Social Work Case Management * Yuni Ramires - Keyla Chow - 10/19/2024 11:44 AM EDT Images from the original note were not included. [id number] Peripheral Artery Disease (PAD) Peripheral artery disease [...] cause. Last Reviewed Date: 2024 00:00:00 ?? [id number] [employer]. All rights reserved. This information is not intended as a substitute for professional medical care. Always follow your healthcare professional's instructions. * Yuni Ramires - Keyla Chow - 10/19/2024 11:44 AM EDT Images from the original note were not included. [id number] Leg Artery Emergencies: Critical Limb Ischemia (CLI) [...] appointments. Last Reviewed Date: 2023 00:00:00 ?? [id number] [employer]. All rights reserved. This information is not intended as a substitute for professional medical care. Always follow your healthcare professional's instructions. * Discharge Summary - Dandy Baltazar MD - 10/19/2024 11:31 AM EDT Hospitalization Admit Date/Time: 10/17/2024 6:21 AM Admitting Attending: Terrell Gautam Discharge Date: 10/19/24 Discharge Attending Physician: Nirmal Cueto MD PCP name and Address: Asad Victor MD (Inactive) [address] [facility] [address] Referring provider name and address: Timothy Marques PA [address] [place] [address] Chief Concern, Brief History of Present Illness, and Hospital Course Bev Bobby is an 64 y.o. 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 [...] Medications These medications were sent to [facility] [place], [place] - [address] [facility] [address] [facility] [address] acetaminophen 500 MG tablet clopidogrel 75 MG [...] water. Outpatient Follow-Up Follow up with 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 [...] provided Taken 10/17/20242107 by Jourdan Grimes II fuel distribution system operator Review/Management: medications reviewed Problem: Skin Injury Risk [...] Ongoing, Progressing Intervention: Promote Activity and Functional [employer] Flowsheets (Taken 10/19/2024 1048) Self-Care Promotion: BADL [...] evaluation. PARTICIPANTS IN CARE Visitors Present No Patternmaker Hand (if applicable) PRESENTATION Oxygen Oxygen Therapy: None [...] Level of Mobility Ambulatory- household only Mobility [employer] Independent gait with device (rollator) History of [...] numbness in rodney) BED MOBILITY Level of [employer] Physical/Non- physical Assist Adaptive Equipment Utilized Rolling/ Turning Scooting/ Bridging Modified independence (anteriorly to EOB) Bed rails Supine to Sit Modified [employer] (to the right) (HOB flat) Bed rails Sit to Supine Interventions HOB flat to simulate home environment TRANSFERS Level of [employer] Physical/Non- physical Assist Adaptive Equipment Utilized Sit [...] stable surfaces during transitions. AMBULATION Level of [employer] Distance Adaptive Equipment Utilized Ambulation Standby assist, [...] Posture: Forward head, Rounded shoulders Level of [employer] Balance Support Interventions Static Sit Independent Right [...] Assessments Standardized Assessments: AMPA 6-Clicks Mobility Assessment [facility] 6-Clicks Mobility Assessment Difficulty patient has turning [...] 3-5 steps with a railing?: A little [facility] 6-Clicks Mobility Assessment Total : 22 ASSESSMENT [...] evaluation/session. Participants in Care Family/Caregiver Present: No Patternmaker Hand: Not Applicable Presentation Oxygen Therapy: None (Room [...] Level of Mobility: Ambulatory- household only Mobility [employer]: Independent gait with device (rollator) History of [...] Mobility Bed Mobility Exam: Scooting/Bridging Level of [employer]: Modified independence (anteriorly to EOB) Assistive Device: Bed rails Bed Mobility Exam: Supine to Sit Level of [employer]: Modified [employer] (to the right) Physical/Nonphysical Assist: (HOB flat) Assistive Device: Bed rails Transfers Transfer Exam: Sit to stand Level of [employer]: Stand-by assist Physical/Nonphysical Assist: Supervision, Verbal Cues, Minimal cues Assistive Device: Walker, rolling Transfer Exam: Stand to Sit Level of [employer]: Stand-by assist Physical/Nonphysical Assist: Supervision, Verbal Cues, [...] regarding toileting at this time. Standardized Assessments [facility] 6-Click Daily Activities Help from Other: Don/Doff Regular Lower Body Clothings: None Help From Other: Bathing: Little Help From Other: Toileting: None Help From Other: Don/Doff Upper Body Clothings: None Help From Other: Grooming: None Help From Other: Eating Meals: None [facility] 6 Click - Daily Activities Score: 23/24 [facility] Scoring Interpretation: Scores greater than 20.5 suggest [...] Note Bev Bobby 64 y.o. male CSN: [id number] Admission: 10/17/2024 6:21 AM Primary Problem: Critical limb ischemia of left lower extremity Liquor Rectifier reviewed chart and spoke with patient to complete this Initial Case Management Assessment. PCP: Asad Victor MD (Inactive) - Dr. Palomo Preferred pharmacy is [facility] Emergency Contact: Extended Emergency Contact Information Primary Emergency Contact: Patti Hill Relation: Sister Patternmaker Hand needed? No Insurance: Primary Visit Coverage Payer Plan Sponsor Code Group Number Group Name [facility] MEDICARE [facility] MEDICARE REPLACEMENT [id number] Primary Visit Coverage Subscriber Subscriber ID Subscriber Name Subscriber [facility] Subscriber Address [id number] BEV BOBBY [id number] [place] [address] Secondary Visit Coverage Payer Plan Sponsor Code Group Number Group Name [employer] [facility] Secondary Visit Coverage Subscriber Subscriber ID Subscriber Name Subscriber [facility] Subscriber Address [id number] BEV BOBBY [id number] [place] [address] Patient information: Primary Caregiver: Self Daily Living Activities: Functional Status: Independent Living Arrangements: Alone Type of Residence: Private residence, Single Level [address] [place] [address] Current DME: Equipment Currently Used at Home: joy monterroso Income Information: Income Source: Retired Income/Expense Information: Income meets expenses Current Resources Utilized: Food [place] Housing Circumstances-Z Codes: Housing Circumstances (select all [...] Dialysis Services: None. Living Will/Advance Directive/Power of Alarm Mechanic /Guardian: Denied. Additional Comments: Patient is not medically ready for discharge. SW will continue to follow. Mariia Monterroso SENIOR UNDERWRITER * Care Plan - Eimlia Alonso RN - 10/18/2024 8:00 AM EDT [...] from the original note were not included. [facility] Department of Surgery Division of Vascular Surgery [...] 10/18/2024 10:16 AM EDT Associated attestation - Niraml Cueto MD - 10/18/2024 10:16 AM EDT [...] Prevention: activity supervised assistive device/personal items within [facility] fall prevention program maintained lighting adjusted [...] Agree with above assessment and evaluation from resident/ADMINISTRATIVE FELLOW. * Op Note - Terrell Gautam MD - 10/17/2024 8:52 AM EDT Operative Note Date: 10/17/24 Location: [facility] OR Name: Bev Bobby, : 1960, Diagnoses: Pre-op Diagnosis Critical limb ischemia of left lower extremity Common femoral artery pseudoaneurysm Post-op Diagnosis Critical limb ischemia of left lower extremity Common femoral artery pseudoaneurysm Procedure(s): Left common/superficial/profunda femoral thromboendarterectomy with bovine patch repair Left external iliac artery/CNC MANAGER stent Attending Surgeon(s): * Terrell Gautam - Primary Oven Equipment Repairer(s): * Luna Beckett MD - Resident - [...] Necessity Reasons Recent surgery contiguous with urinary tract/SECURITY GUARDS DISPATCHER/colorectal 10/17/24 190 Output (mL) 50 mL 10/18/24 08 Implants Type Name Action Serial No. VASCUGUARD 8 X 8 - [id number] Implanted STENT ENDOPROSTHESIS VIABAHN 9FR [id number] - [id number] Implanted [id number] Specimen: Specimens ID Source Frozen? 1 Other [...] and distal control. We then proceeded with [id number] exposure of the popliteal artery. A medial [...] balloon dilated thestent with a 9 mm [place]. We closed the arteriotomy with a single [...] 10/17/2024 8:52 AM EDT Date: 10/17/24 Location: [facility] OR Name: Bev Bobby, : 1960, Diagnoses: Pre-op Diagnosis Critical limb ischemia of left lower extremity Common femoral artery pseudoaneurysm Post-op Diagnosis Critical limb ischemia of left lower extremity Common femoral artery pseudoaneurysm Procedure(s): Left common/superficial/profunda femoral thromboendarterectomy with bovine patch repair Left external iliac artery/CNC MANAGER stent Attending Surgeon(s): * Terrell Gautam - Primary Oven Equipment Repairer(s): * Luna Beckett MD - Resident - Assisting * Dandy Baltazar MD - Fellow Anesthesia: General ASA: III Blood Administration: Blood Product Administration History None Estimated Blood Loss: 300 mL Drains: Urethral Catheter Temperature probe 16 Fr. (Active) Implants Type Name Action Serial No. VASCUGUARD 8 X 8 - [id number] Implanted STENT ENDOPROSTHESIS VIABAHN 9FR [id number] - [id number] Implanted [id number] Specimen: Specimens ID Source Frozen? 1 Other [...] issues. 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 He previouslyunderwent thrombin injection. He reports pain in his calves. He presents today for scheduled left lower extremity femoral to byxns-tkp-zter popliteal bypass. Planned likely use PTFE. He [...] 16. Results Review {Vanishing Link Review Results :[id number] I have reviewed the latest lab and imaging results. Assessment & Plan Critical limb ischemia of left lower extremity Proceed with scheduled surgery left lower extremity femoral to nnkfg-kff-uxto popliteal artery bypass graft. Extensive discussion had [...] Office Visit [facility] [address] [place] [phone] Oscar Appiah MD [address] [facility] [address] [place] [phone] 12/19/2024 7:[address] [facility] [address] [place] [address] 12/19/2024 8:[address] [facility] [address] [place] [address] 12/19/2024 9:00 AM EDT Office Visit [facility] [address] [place] [address] Nathaly Nowak MD [address] [facility] [address] [place] [address] Pending Results Name Type Priority Associated Diagnoses [...] meter (10/19/2024 11:40 AM EDT) Pathologist [facility] POCT Glucose 207(H) 74 - 99 [...] Comment 10/19/2024 11:42 AM EDT HEALTHCARE LAB Floor Nurse ID KamranJob 10/20/19 11:42 AM EDT HEALTHCARE LAB Device ID [id number] 10/19/2024 11:42 AM EDT HEALTHCARE LAB Specimen Type POC Capillary 10/19/2024 11:42 AM EDT [facility] Blood Capillary blood specimen / Unknown 10/19/2024 11:40 AM EDT 10/19/2024 11:42 AM EDT us Terrell Gautam MD LAB POINT OF CARE TE ST DOCKED DEVICE UNSOLICITED RESULTS Final Result Performing Organization Address City/State/[facility] Co de Phone Number HEALTHCARE LAB [address] [place] [address] * (ABNORMAL) Protime-INR (10/19/2024 8:25 AM EDT) [facility] Prothrombin Time 17.5(H) 12.0 - 14.3 sec [...] Final Result Performing Organization Address [facility]/ZIP Co de Phone Number [facility] [address] [place] [address] * (ABNORMAL) Phosphorus (10/19/2024 8:25 AM EDT) Phosphorus, Plasma 2.2(L) 2.5 - 4.5 mg/dL 10/19/2024 9:12 AM EDT [facility] Blood Venous blood specimen / Unknown Venipuncture / Unknown 10/19/2024 8:25 AM EDT 10/19/2024 8:43 AM EDT Nirmal Cueto MD LAB BLOOD ORDERABLES Final Result Performing Organization Address [facility] Co de Phone Number [facility] [address] [place] [address] * Magnesium (10/19/2024 8:25 AM EDT) Magnesium, Plasma 2.1 1.9 - 2.4 mg/dL 10/19/2024 9:12 AM EDT [facility] Blood Venous blood specimen / Unknown Venipuncture / Unknown 10/19/2024 8:25 AM EDT 10/19/2024 8:43 AM EDT Nirmal Cueto MD LAB BLOOD ORDERABLES Final Result Performing Organization Address [facility] Co de Phone Number [facility] [address] [place] [address] * (ABNORMAL) Basic metabolic panel (10/19/2024 8:25 [...] Final Result [facility] [address] [place] [address] * (ABNORMAL) CBC W/O Differential (10/19/2024 8:25 [...] Final Result [facility] [address] [place] [address] * (ABNORMAL) POCT glucose meter (10/19/2024 7:35 AM EDT) POCT Glucose 187(H) 74 - 99 mg/dL 10/19/2024 7:37 AM EDT [facility] Comment:Accuracy of a glucos e [...] Comment 10/19/2024 7:37 AM EDT HEALTHCARE LAB Floor Nurse ID Job Andrew 10/20/19 7:37 AM EDT HEALTHCARE LAB Device ID [id number] 10/19/2024 7:37 AM EDT HEALTHCARE LAB Specimen Type POC Capillary 10/19/2024 7:37 AM EDT HEALTHCARE LAB Blood Capillary blood specimen / Unknown 10/19/2024 7:35 AM EDT 10/19/2024 7:37 AM EDT us Terrell Gautam MD LAB POINT OF CARE TE ST DOCKED DEVICE UNSOLICITED RESULTS Final Result Performing Organization Address City/State/[facility] Co de Phone Number HEALTHCARE LAB [address] [place] [address] * (ABNORMAL) POCT glucose meter (10/18/2024 7:22 PM EDT) [facility] POCT Glucose 178(H) 74 - 99 mg/dL [...] Comment 10/18/2024 7:24 PM EDT HEALTHCARE LAB Floor Nurse ID Mahesh Aladna 10/18/2024 7:24 PM EDT HEALTHCARE LAB Device ID [id number] 10/18/2024 7:24 PM EDT HEALTHCARE LAB Specimen Type POC Capillary 10/18/2024 7:24 PM EDT HEALTHCARE LAB Blood Capillary blood specimen / Unknown 10/18/2024 7:22 PM EDT 10/18/2024 7:24 PM EDT us Terrell Gautam MD LAB POINT OF CARE TE ST DOCKED DEVICE UNSOLICITED RESULTS Final Result Performing Organization Address [facility] Co de Phone Number [facility] [address] [place] [address] * (ABNORMAL) POCT glucose meter (10/18/2024 6:07 PM EDT) Pathologist [facility] POCT Glucose 167(H) 74 - 99 mg/dL [...] Comment 10/18/2024 6:09 PM EDT HEALTHCARE LAB Floor Nurse ID David Parks Elaine 10/18/2024 6:09 PM EDT HEALTHCARE LAB Device ID [id number] 10/18/2024 6:09 PM EDT HEALTHCARE LAB Specimen Type POC Capillary 10/18/2024 6:09 PM EDT [facility] Blood Capillary blood specimen / Unknown 10/18/2024 6:07 PM EDT 10/18/2024 6:09 PM EDT Terrell Gautam MD LAB POINT OF CARE TE ST DOCKED DEVICE UNSOLICITED RESULTS Final Result Performing Organization Address [facility] Co de Phone Number [facility] [address] [place] [address] * (ABNORMAL) POCT glucose meter (10/18/2024 11:56 AM EDT) [facility] POCT Glucose 233(H) 74 - 99 mg/dL [...] 10/21/2024 7:42 AM EDT [facility] Floor Nurse ID Venessa Marcano 10/21/2024 7:42 AM EDT [facility] Device ID [id number] 10/21/2024 7:42 AM EDT HEALTHCARE LAB Specimen Type POC Capillary 10/21/2024 7:42 AM EDT HEALTHCARE LAB Blood Capillary blood specimen / Unknown 10/18/2024 11:56 AM EDT 10/21/2024 7:42 AM EDT us Terrell Gautam MD LAB POINT OF CARE TE ST DOCKED DEVICE UNSOLICITED RESULTS Final Result Performing Organization Address City/[facility] Co de Phone Number [facility] [address] [place] [address] * (ABNORMAL) POCT glucose meter (10/18/2024 9:24 AM EDT) Pathologist [facility] POCT Glucose 322(H) 74 - 99 [...] 10/21/2024 7:42 AM EDT [facility] Floor Nurse ID Emilai Alonso 7:42 AM EDT [facility] Device ID [id number] 10/21/2024 7:42 AM EDT [facility] Specimen Type POC Venous 10/21/2024 7:42 AM EDT HEALTHCARE LAB Blood Venous blood specimen / Unknown 10/18/2024 9:24 AM EDT 10/21/2024 7:42 AM EDT us Terrell Gautam MD LAB POINT OF CARE TE ST DOCKED DEVICE UNSOLICITED RESULTS Final Result Performing Organization Address City/[facility] Co de Phone Number [facility] [address] [place] [address] * (ABNORMAL) POCT glucose meter (10/18/2024 7:36 [...] Comment 10/18/2024 7:38 AM EDT HEALTHCARE LAB Floor Nurse ID Kizzy Godfrey 025 7:38 AM EDT HEALTHCARE LAB Device ID [id number] 10/18/2024 7:38 AM EDT [facility] Specimen Type POC Capillary 10/18/2024 7:38 AM EDT [facility] Blood Capillary blood specimen / Unknown 10/18/2024 7:36 AM EDT 10/18/2024 7:38 AM EDT us Terrell Gautam MD LAB POINT OF CARE TE ST DOCKED DEVICE UNSOLICITED RESULTS Final Result [facility] [address] [place] [address] * (ABNORMAL) CBC (10/18/2024 2:09 AM EDT) [facility] WBC Count 16.71(H) 3.70 - 10.30 10*3/uL [...] Final Result [facility] [address] [place] [address] * (ABNORMAL) Basic metabolic panel (10/18/2024 2:09 [...] Organization Address City/[facility]/ZIP Co de Phone Number [facility] [address] [place] [address] * (ABNORMAL) Magnesium (10/18/2024 2:09 AM EDT) Magnesium, Plasma 1.8(L) 1.9 - 2.4 mg/dL 10/18/2024 2:53 AM EDT [facility] Blood Venous blood specimen / Unknown Venipuncture / Unknown 10/18/2024 2:09 AM EDT 10/18/2024 2:25 AM EDT Nirmal Cueto MD LAB BLOOD ORDERABLES Final Result [facility] [address] [place] [address] * Phosphorus (10/18/2024 2:09 AM EDT) Phosphorus, Plasma 3.7 2.5 - 4.5 mg/dL 10/18/2024 2:53 AM EDT [facility] Blood Venous blood specimen / Unknown Venipuncture / Unknown 10/18/2024 2:09 AM EDT 10/18/2024 2:25 AM EDT Nirmal Cueto MD LAB BLOOD ORDERABLES Final Result Performing Organization Address [facility] Co de Phone Number [facility] [address] [place] [address] * (ABNORMAL) Protime-INR (10/18/2024 2:09 AM EDT) [...] of recurrent [place] INR 2.5 to 3.5 Result [facility] Nirmal Cueto MD LAB BLOOD ORDERABLES Final Result Performing Organization Address [facility] Co de Phone Number [facility] [address] [place] [address] * (ABNORMAL) POCT glucose meter (10/18/2024 2:08 AM EDT) POCT Glucose 202(H) 74 - 99 mg/dL 10/18/2024 2:10 AM EDT [facility] Comment:Accuracy of a glucos e [...] Comment 10/18/2024 2:10 AM EDT HEALTHCARE LAB Floor Nurse ID Jourdan Grimes II 10/18/2024 2:10 AM EDT HEALTHCARE LAB Device ID [id number] 10/18/2024 2:10 AM EDT HEALTHCARE LAB Specimen Type POC Capillary 10/18/2024 2:10 AM EDT HEALTHCARE LAB Blood Capillary blood specimen / Unknown 10/18/2024 2:08 AM EDT 10/18/2024 2:10 AM EDT us Terrell Gautam MD LAB POINT OF CARE TE ST DOCKED DEVICE UNSOLICITED RESULTS Final Result Performing Organization Address City/[facility] Co mi Phone Number HEALTHCARE LAB [address] [place] [address] * (ABNORMAL) POCT glucose meter (10/17/2024 10:07 PM EDT) [facility] POCT Glucose 300(H) 74 - 99 mg/dL [...] Comment 10/17/2024 10:10 PM EDT HEALTHCARE LAB Floor Nurse ID Jourdan Grimes II 10/17/2024 10:10 PM EDT HEALTHCARE LAB Device ID [id number] 10/17/2024 10:10 PM EDT HEALTHCARE LAB Specimen Type POC Capillary 10/17/2024 10:10 PM EDT HEALTHCARE LAB Blood Capillary blood specimen / Unknown 10/17/2024 10:07 PM EDT 10/17/2024 10:10 PM EDT us Terrell Gautam MD LAB POINT OF CARE TE ST DOCKED DEVICE UNSOLICITED RESULTS Final Result [facility] [address] [place] [address] * (ABNORMAL) POCT glucose meter (10/17/2024 8:07 PM EDT) [facility] POCT Glucose 391(H) 74 - 99 mg/dL [...] Comment 10/17/2024 8:10 PM EDT [facility] Floor Nurse ID Cornelio WALTERS Jourdan 10/17/2024 8:10 PM EDT [facility] Device ID [id number] 10/17/2024 8:10 PM EDT [facility] Specimen Type POC Capillary 10/17/2024 8:10 PM EDT [facility] Blood Capillary blood specimen / Unknown 10/17/2024 8:07 PM EDT 10/17/2024 8:10 PM EDT Terrell Gautam MD LAB POINT OF CARE TE ST DOCKED DEVICE UNSOLICITED RESULTS Final Result Performing Organization Address [facility] de Phone Number [facility] [address] [place] [address] * (ABNORMAL) POCT glucose meter (10/17/2024 4:01 PM EDT) [facility] POCT Glucose 249(H) 74 - 99 mg/dL [...] 10/17/2024 4:03 PM EDT [facility] Floor Nurse ID Chelsieamanda Keisha 10/17/2024 4:03 PM EDT [facility] Device ID [id number] 10/17/2024 4:03 PM EDT [facility] Specimen Type POC Capillary 10/17/2024 4:03 PM EDT [facility] Blood Capillary blood specimen / Unknown 10/17/2024 4:01 PM EDT 10/17/2024 4:03 PM EDT us Terrell Gautam MD LAB POINT OF CARE TE ST DOCKED DEVICE UNSOLICITED RESULTS Final Result Performing Organization Address City/[facility] Co de Phone Number [facility] [address] [place] [address] * (ABNORMAL) POCT glucose meter (10/17/2024 1:25 PM EDT) [facility] POCT Glucose 225(H) 74 - 99 mg/dL [...] 10/17/2024 1:27 PM EDT [facility] Floor Nurse ID Kizzy Godfrey 025 1:27 PM EDT [facility] Device ID [id number] 10/17/2024 1:27 PM EDT [facility] Specimen Type POC Capillary 10/17/2024 1:27 PM EDT [facility] Blood Capillary blood specimen / Unknown 10/17/2024 1:25 PM EDT 10/17/2024 1:27 PM EDT us Terrell Gautam MD LAB POINT OF CARE TE ST DOCKED DEVICE UNSOLICITED RESULTS Final Result Performing Organization Address City/[facility] Co de Phone Number [facility] [address] [place] [address] * [place] Less than 1 Hour Intraoperative [...] Seconds 10/29/2024 7:28 AM EDT [facility]ALTH[facility]ARE LAB Floor Nurse ID Donna Mcmillan 10/29/2024 7:28 AM EDT [facility] ACT Device ID [id number] 10/29/2024 7:28 AM EDT [facility] Comment 10/29/2024 7:28 AM EDT [...] Organization Address City/[facility] Co de Phone Number [facility] [address] LAB [address] [place] [address] * (ABNORMAL) Blood gas, arterial (10/17/2024 11:48 [...] 10/17/2024 11:53 AM EDT us Jenna Lopez ADMINISTRATIVE FELLOW LAB BLOOD ORDERABLES Final Re sult [facility] [address] [place] [address] * POCT ACT (10/17/2024 11:41 AM EDT) ACT+ (HIGH RANGE) 175 68 - 600 Seconds 10/29/2024 7:28 AM EDT [facility] Floor Nurse ID Oneyda Alicea 10/29/2024 7:28 AM EDT [facility] ACT Device ID [id number] 10/29/2024 7:28 AM EDT [facility] Comment 10/29/2024 7:28 AM EDT [facility] Comment: ACT performed by staff [...] Organization Address City/[facility] Co de Phone Number HEALTH[facility]ARE [facility] [address] LAB [address] [place] [address] * POCT ACT (10/17/2024 11:11 AM EDT) ACT+ (HIGH RANGE) 252 68 - 600 Seconds 10/29/2024 7:28 AM EDT [facility] Floor Nurse ID Donna Mcmillan 10/29/2024 7:28 AM EDT [facility] ACT Device ID [id number] 10/29/2024 7:28 AM EDT [facility] Comment 10/29/2024 7:28 AM EDT [facility] Comment: ACT performed by staff [...] Organization Address City/[facility]/ZIP Co de Phone Number HEALTHCARE [facility] [address] LAB [address] [place] [address] * (ABNORMAL) Blood gas, arterial (10/17/2024 10:46 [...] 10/17/2024 10:54 AM EDT us Jenna Lopez ADMINISTRATIVE FELLOW LAB BLOOD ORDERABLES Final Re sult Performing Organization Address City/[facility]/ZIP Co de Phone Number [facility] [address] [place] [address] * POCT ACT (10/17/2024 10:37 AM EDT) ACT+ (HIGH RANGE) 206 68 - 600 Seconds 10/29/2024 7:28 AM EDT [facility] Floor Nurse ID Donna Mcmillan 10/29/2024 7:28 AM EDT [facility] ACT Device ID [id number] 10/29/2024 7:28 AM EDT [facility] Comment 10/29/2024 7:28 AM EDT [facility] Comment: ACT performed by staff at [...] Final Result Performing Organization Address [facility] Co de Phone Number [facility] [address] [place] [address] * Surgical Pathology Exam (10/17/2024 10:27 AM EDT) Case Report Surgical Pathology Case: [id number] Authorizing Provider: Terrell Gautam MD Collected: 10/17/2024 1027 Ordering Location: [facility] OPERATING ROOM Received: 10/17/2024 1325 Pathologist: Haydee [...] cm. The specimen is serially sectioned and manufacturer's service representative sections are submitted in cassette A1. Cold Time: <1m Kenia C Yola 10/21/2024 10:16 AM EDT [facility] Terrell Gautam MD LAB PATHOLOGY ORDERABLES Gwen girmaldo Result [facility] [address] [place] [id number] * POCT ACT (10/17/2024 10:03 AM EDT) ACT+ (HIGH RANGE) 244 68 - 600 Seconds 10/29/2024 7:28 AM EDT [facility] Floor Nurse ID Donna Mcmillan 10/29/2024 7:28 AM EDT [facility] ACT Device ID [id number] 10/29/2024 7:28 AM EDT [facility] Comment 10/29/2024 7:28 AM EDT [...] ST DOCKED DEVICE UNSOLICITED RESULTS Final Result [facility] [address] LAB [address] [place] [address] * (ABNORMAL) Blood gas, arterial (10/17/2024 9:45 [...] Re sult [facility] [address] [place] [address] * (ABNORMAL) Blood gas, arterial (10/17/2024 8:47 [...] Re sult [facility] [address] [place] [address] * POCT ACT (10/17/2024 8:46 AM EDT) ACT+ (HIGH RANGE) 101 68 - 600 Seconds 10/29/2024 7:28 AM EDT [facility]ALTHCARE LAB Floor Nurse ID Donna Mcmillan 10/29/2024 7:28 AM EDT [facility] ACT Device ID [id number] 10/29/2024 7:28 AM EDT [facility] Comment [...] AM EDT 10/29/2024 7:28 AM EDT us Trerell Gautam MD LAB POINT OF CARE TE ST DOCKED DEVICE UNSOLICITED RESULTS Final Result [facility] [address] LAB [address] [place] [address] * Type and Screen (10/17/2024 7:19 AM [...] Final Result Performing Organization Address [facility] Co de Phone Number BLOOD BANK [address] [place] [address] * (ABNORMAL) POCT glucose meter (10/17/2024 6:44 AM EDT) [facility] POCT Glucose 178(H) 74 - 99 mg/dL [...] 10/17/2024 6:49 AM EDT [facility] Floor Nurse ID Hunter Burroughs 10/18/19 6:49 AM EDT [facility] Device ID [id number] 10/17/2024 6:49 AM EDT [facility] Specimen Type POC Capillary 10/17/2024 6:49 AM EDT [facility] Blood Capillary blood specimen / Unknown 10/17/2024 6:44 AM EDT 10/17/2024 6:49 AM EDT us Terrell Gautam MD LAB POINT OF CARE TE ST DOCKED DEVICE UNSOLICITED RESULTS Final Result [facility] [address] [place] [address] documented in this encounter Visit Diagnoses Diagnosis [...] documented as of this encounter Care Teams [employer] Product [employer] Manager Relationship Specialty Start Date End Date Asad Victor MD [address] [place] [id number] PCP - General 10/07/22 documented as of this encounter
--- OUTSIDE RECORDS SUMMARY | 2024-11-05 21:45 | XMS_ITS | Encounter Summary ---
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 [facility] [address] [place] [address] * (ABNORMAL) POCT glucose meter (11/12/2024 12:36 PM EDT) [facility] POCT Glucose 224(H) 74 - 99 [...] 11/12/2024 12:38 PM EDT [facility] Manager Power ID Wade Feliciano 12:38 PM EDT [facility] Device ID [id number] 11/12/2024 12:38 PM EDT [facility] Specimen Type POC Capillary 11/12/2024 12:38 PM EDT [facility] Blood Capillary blood specimen / Unknown 11/12/2024 12:36 PM EDT 11/12/2024 12:38 PM EDT Nathaly Nowak MD LAB POINT OF CARE TE ST DOCKED DEVICE UNSOLICITED RESULTS Final Result Performing Organization Address City/[facility]/ZIP Co de Phone Number [facility] [address] [place] [address] * Clostridiodes (Clostridium) difficile PCR (11/12/2024 9:50 AM EDT) C difficile PCR toxin B gene DNA Result Not Detected Not Detected 11/12/2024 11:54 AM EDT [facility] Stool Rectum structure / Unknown Non-blood Collection / Unknown 11/12/2024 9:50 AM EDT 11/12/2024 10:04 AM EDT Narrative [facility] - 11/12/2024 11:54 AM EDT [...] MICROBIOLOGY - GENERAL ATIYA FRITZ Final Result [facility] [address] [place] [id number] * Comprehensive GI Panel by PCR (11/12/2024 9:50 AM EDT) Campylobacter PCR Result Not Detected Not Detected 11/12/2024 2:47 PM EDT [facility] Plesiomonas shigelloides PCR Result Not Detected Not Detected 11/12/2024 2:47 PM EDT [facility] Salmonella PCR Result Not Detected Not Detected 11/12/2024 2:47 PM EDT [facility] Vibrio species PCR Result Not Detected Not Detected 11/12/2024 2:47 PM EDT [facility] Vibrio cholerae PCR Result Not Detected Not Detected 11/12/2024 2:47 PM EDT [facility] Yersinia enterocolitica PCR Result Not Detected Not Detected 11/12/2024 2:47 PM EDT [facility] Enteroaggregative E. coli (EAEC) PCR Result Not Detected Not Detected 11/12/2024 2:47 PM EDT [facility] Enteropathogenic E. coli (EPEC) PCR Result Not Detected Not Detected 11/12/2024 2:47 PM EDT [facility] Enterotoxigenic E. coli (ETEC) lt/st PCR Result Not Detected Not Detected 11/12/2024 2:47 PM EDT [facility] Shiga-like Toxin-Producing E.coli (STEC) stx1/stx2 PCR Resu Not Detected Not Detected 11/12/2024 2:47 PM EDT [facility] E coli 0157 PCR Result Not Detected Not Detected 11/12/2024 2:47 PM EDT [facility] Shigella/Enteroinvas tam E. coli (EIEC) PCR Result Not Detected Not Detected 11/12/2024 2:47 PM EDT [facility] Cryptosporidium PCR Result Not Detected Not Detected 11/12/2024 2:47 PM EDT [facility] Cyclospora cayetanensis PCR Result Not Detected Not Detected 11/12/2024 2:47 PM EDT [facility] Entamoeba histolytica PCR Result Not Detected Not Detected 11/12/2024 2:47 PM EDT [facility] Giardia duodenalis (aka Giardia lamblia) PCR Result Not Detected Not Detected 11/12/2024 2:47 PM EDT [facility] Adenovirus F 40/41 PCR Result Not Detected Not Detected 11/12/2024 2:47 PM EDT [facility] Astrovirus PCR Result Not Detected Not Detected 11/12/2024 2:47 PM EDT [facility] Norovirus GI/GII PCR Result Not Detected Not Detected 11/12/2024 2:47 PM EDT [facility] Rotavirus A PCR Result Not Detected Not Detected 11/12/2024 2:47 PM EDT [facility] Sapovirus PCR Result Not Detected Not Detected 11/12/2024 2:47 PM EDT [facility] Stool Rectum structure / Unknown Non-blood Collection / Unknown 11/12/2024 9:50 AM EDT 11/12/2024 10:04 AM EDT Narrative [facility] - 11/12/2024 2:47 PM EDT [...] indicated. Nathaly Nowak MD LAB MICROBIOLOGY - [facility] Final Result [facility] [address] [place] [address] * C-reactive protein (11/12/2024 9:48 AM EDT) CRP, Plasma <3.0 <=8.0 mg/L 11/12/2024 10:28 AM EDT [facility] Blood Venous blood specimen / Unknown Venipuncture / Unknown 11/12/2024 9:48 AM EDT 11/12/2024 9:59 AM EDT Narrative [facility] - 11/12/2024 10:28 AM EDT This CRP test is appropriate for assessment of infection, systemic inflammation and/or tissue injury. To assess cardiovascular disease risk order high sensitivity CRP (CRPH). Nathaly Nowak MD LAB BLOOD ORDERABLES Final Resu lt Performing Organization Address City/[facility]/ZIP Co de Phone Number [facility] [address] [place] [address] * (ABNORMAL) POCT glucose meter (11/12/2024 8:20 AM EDT) [facility] POCT Glucose 138(H) 74 - 99 [...] Comment 11/12/2024 8:21 AM EDT HEALTHCARE LAB Manager Power ID Wade Feliciano 8:21 AM EDT HEALTHCARE LAB Device ID [id number] 11/12/2024 8:21 AM EDT [facility] LAB Specimen Type POC Capillary 11/12/2024 8:21 AM EDT [facility] Blood Capillary blood specimen / Unknown 11/12/2024 8:20 AM EDT 11/12/2024 8:21 AM EDT Nathaly Nowak MD LAB POINT OF CARE TE ST DOCKED DEVICE UNSOLICITED RESULTS Final Result Performing Organization Address [facility] Co de Phone Number [facility] LAB [address] [place] [address] * (ABNORMAL) POCT glucose meter (11/11/2024 8:18 PM EDT) [facility] POCT Glucose 248(H) 74 - 99 [...] 11/11/2024 8:20 PM EDT [facility] Manager Power ID Nelda Gerber 11/12/19 8:20 PM EDT HEALTHCARE LAB Device ID [id number] 11/11/2024 8:20 PM EDT [facility] LAB Specimen Type POC Capillary 11/11/2024 8:20 PM EDT [facility] LAB Blood Capillary blood specimen / Unknown 11/11/2024 8:18 PM EDT 11/11/2024 8:20 PM EDT Nathaly Nowak MD LAB POINT OF CARE TE ST DOCKED DEVICE UNSOLICITED RESULTS Final Result Performing Organization Address City/[facility]/ZIP Co de Phone Number [facility] [address] [place] [address] * (ABNORMAL) POCT glucose meter (11/11/2024 5:59 PM EDT) [facility] POCT Glucose 147(H) 74 - 99 mg/dL [...] 11/11/2024 6:01 PM EDT [facility] Manager Power ID Wade Feliciano 6:01 PM EDT HEALTHCARE LAB Device ID [id number] 11/11/2024 6:01 PM EDT [facility]ARE LAB Specimen Type POC Capillary 11/11/2024 6:01 PM EDT [facility] LAB Blood Capillary blood specimen / Unknown 11/11/2024 5:59 PM EDT 11/11/2024 6:01 PM EDT Nathaly Nowak MD LAB POINT OF CARE TE ST DOCKED DEVICE UNSOLICITED RESULTS Final Result Performing Organization Address City/[facility]/ZIP Co de Phone Number [facility] [address] [place] [address] * POCT glucose meter (11/11/2024 5:20 PM EDT) [facility] POCT Glucose 84 74 - 99 [...] Comment 11/11/2024 5:22 PM EDT HEALTHCARE LAB Manager Power ID Wade Feliciano 5:22 PM EDT HEALTHCARE LAB Device ID [id number] 11/11/2024 5:22 PM EDT HEALTH[facility]ARE LAB Specimen Type POC Capillary 11/11/2024 5:22 PM EDT [facility] LAB Blood Capillary blood specimen / Unknown 11/11/2024 5:20 PM EDT 11/11/2024 5:22 PM EDT us Nathaly Nowak MD LAB POINT OF CARE TE ST DOCKED DEVICE UNSOLICITED RESULTS Final Result Performing Organization Address City/State/[facility] Co de Phone Number [facility]ARE LAB [address] [place] [address] * HI NEGATIVE PRESSURE WOUND THERAPY DME >50 SQ [...] glucose meter (11/11/2024 12:08 PM EDT) Pathologist [facility] POCT Glucose 226(H) 74 - [...] Comment 11/11/2024 12:10 PM EDT HEALTHCARE LAB Manager Power ID Wade Feliciano 12:10 PM EDT HEALTHCARE LAB Device ID [id number] 11/11/2024 12:10 PM EDT HEALTHCARE LAB Specimen Type POC Capillary 11/11/2024 12:10 PM EDT [facility] LAB Blood Capillary blood specimen / Unknown 11/11/2024 12:08 PM EDT 11/11/2024 12:10 PM EDT us Nathaly Nowak MD LAB POINT OF CARE TE ST DOCKED DEVICE UNSOLICITED RESULTS Final Result Performing Organization Address City/State/[facility] Co de Phone Number [facility]ARE LAB [address] [place] [address] * (ABNORMAL) POCT glucose meter (11/11/2024 9:08 AM EDT) Pathologist [facility] POCT Glucose 162(H) 74 - [...] 11/11/2024 9:09 AM EDT [facility] Manager Power ID Wade Feliciano 9:09 AM EDT [facility] Device ID [id number] 11/11/2024 9:09 AM EDT [facility] Specimen Type POC Capillary 11/11/2024 9:09 AM EDT [facility] Blood Capillary blood specimen / Unknown 11/11/2024 9:08 AM EDT 11/11/2024 9:09 AM EDT Nathaly Nowak MD LAB POINT OF CARE TE ST DOCKED DEVICE UNSOLICITED RESULTS Final Result Performing Organization Address City/[facility] Co de Phone Number [facility] [address] [place] [address] * POCT glucose meter (11/11/2024 8:27 AM EDT) POCT Glucose 87 74 - 99 mg/dL 11/11/2024 8:28 AM EDT [facility] Comment:Accuracy of a glucos e result [...] for testing. Comment 11/11/2024 8:28 AM EDT [facility] Manager Power ID Wade Feliciano 8:28 AM EDT [facility] Device ID [id number] 11/11/2024 8:28 AM EDT [facility] Specimen Type POC Capillary 11/11/2024 8:28 AM EDT [facility] Blood Capillary blood specimen / Unknown 11/11/2024 8:27 AM EDT 11/11/2024 8:28 AM EDT Nathaly Nowak MD LAB POINT OF CARE TE ST DOCKED DEVICE UNSOLICITED RESULTS Final Result Performing Organization Address City/[facility]/ZIP Co de Phone Number [facility] [address] [place] [address] * (ABNORMAL) Basic Metabolic Panel, Plasma (11/11/2024 1:12 AM EDT) Glucose, Plasma 122(H) 74 - 99 mg/dL 11/11/2024 1:12 AM EDT [facility] BUN, Plasma 10 8 - 23 mg/dL 11/11/2024 1:12 AM EDT [facility] Creatinine, Plasma 0.82 0.70 - 1.20 mg/dL 11/11/2024 1:12 AM EDT [facility] BUN/Creatinine Ratio 12 11/11/2024 1:12 AM EDT [facility] Sodium, Plasma 137 136 - 145 mmol/L 11/11/2024 1:12 AM EDT [facility] Potassium, Plasma 3.9 3.6 - 4.9 mmol/L 11/11/2024 1:12 AM EDT [facility] Chloride, Plasma 110(H) 97 - 107 mmol/L 11/11/2024 1:12 AM EDT [facility] CO2, Plasma 20(L) 22 - 29 mmol/L 11/11/2024 1:12 AM EDT [facility] Anion Gap 7 6 - 16 mmol/L 11/11/2024 1:12 AM EDT [facility] Total Calcium, Plasma 7.6(L) 8.9 - 10.2 mg/dL 11/11/2024 1:12 AM EDT [facility] eGFRcr 97.5 mL/min/1.7 3m*2 11/11/2024 1:12 AM EDT [facility] Comment:Reported eGFRcr in m L/min/1.73m2 is based the CKD-EPI 2020 equation that does not use a race coefficient. Blood Venous blood specimen / Unknown 11/11/2024 12:42 AM EDT us Nathaly Nowak MD LAB BLOOD ORDERABLES Final Resu lt [facility] [address] [place] [address] * (ABNORMAL) CBC W/O Differential (11/11/2024 12:56 AM EDT) WBC Count 11.83(H) 3.70 - 10.30 10*3/uL LAB HEMATOLOGY METHOD 11/11/2024 12:56 AM EDT [facility] RBC Count 2.97(L) 4.60 - 6.10 10*6/uL LAB HEMATOLOGY METHOD 11/11/2024 12:56 AM EDT [facility] HGB 8.9(L) 13.7 - 17.5 g/dL LAB HEMATOLOGY METHOD 11/11/2024 12:56 AM EDT [facility] HCT 27.2(L) 40.0 - 51.0 % LAB HEMATOLOGY METHOD 11/11/2024 12:56 AM EDT [facility] Platelet Count 444(H) 155 - 369 10*3/uL LAB HEMATOLOGY METHOD 11/11/2024 12:56 AM EDT [facility] MCV 92 79 - 98 fL LAB HEMATOLOGY METHOD 11/11/2024 12:56 AM EDT [facility] MCH 30.0 26.0 - 32.0 pg LAB HEMATOLOGY METHOD 11/11/2024 12:56 AM EDT [facility] MCHC 32.7 30.7 - 35.5 g/dL LAB HEMATOLOGY METHOD 11/11/2024 12:56 AM EDT [facility] RDW 13.3 11.5 - 14.5 % LAB HEMATOLOGY METHOD 11/11/2024 12:56 AM EDT [facility] MPV 9.0 8.8 - 12.5 fL LAB HEMATOLOGY METHOD 11/11/2024 12:56 AM EDT [facility] nRBC 0.0 <=0.0 per 100 WBCs LAB HEMATOLOGY METHOD 11/11/2024 12:56 AM EDT [facility] Blood Venous blood specimen / Unknown 11/11/2024 12:42 AM EDT us Nathaly Nowak MD LAB BLOOD ORDERABLES Final Resu lt [facility] [address] [place] [address] * (ABNORMAL) POCT glucose meter (11/10/2024 8:25 PM EDT) POCT Glucose 144(H) 74 - 99 mg/dL 11/10/2024 8:28 PM EDT [facility] Comment:Accuracy of a [...] Comment 11/10/2024 8:28 PM EDT HEALTHCARE LAB Manager Power ID Nelda Gerber 11/11/19 8:28 PM EDT HEALTHCARE LAB Device ID [id number] 11/10/2024 8:28 PM EDT HEALTHCARE LAB Specimen Type POC Capillary 11/10/2024 8:28 PM EDT HEALTHCARE LAB Blood Capillary blood specimen / Unknown 11/10/2024 8:25 PM EDT 11/10/2024 8:28 PM EDT us Nathaly Nowak MD LAB POINT OF CARE TE ST DOCKED DEVICE UNSOLICITED RESULTS Final Result Performing Organization Address City/[facility]/ZIP Co de Phone Number [facility] [address] [place] [address] * (ABNORMAL) POCT glucose meter (11/10/2024 4:45 PM EDT) [facility] POCT Glucose 155(H) 74 - 99 [...] Comment 11/10/2024 4:47 PM EDT HEALTHCARE LAB Manager Power ID Esperanza Parks 11/10/2024 4:47 PM EDT HEALTHCARE LAB Device ID [id number] 11/10/2024 4:47 PM EDT HEALTHCARE LAB Specimen Type POC Capillary 11/10/2024 4:47 PM EDT HEALTHCARE LAB Blood Capillary blood specimen / Unknown 11/10/2024 4:45 PM EDT 11/10/2024 4:47 PM EDT us Nathaly Nowak MD LAB POINT OF CARE TE ST DOCKED DEVICE UNSOLICITED RESULTS Final Result [facility] [address] [place] [address] * (ABNORMAL) POCT glucose meter (11/10/2024 12:13 [...] Comment 11/10/2024 12:14 PM EDT HEALTHCARE LAB Manager Power ID Esperanza Parks 11/10/2024 12:14 PM EDT HEALTHCARE LAB Device ID [id number] 11/10/2024 12:14 PM EDT HEALTHCARE LAB Specimen Type POC Capillary 11/10/2024 12:14 PM EDT [facility] Blood Capillary blood specimen / Unknown 11/10/2024 12:13 PM EDT 11/10/2024 12:14 PM EDT Nathaly Nowak MD LAB POINT OF CARE TE ST DOCKED DEVICE UNSOLICITED RESULTS Final Result [facility] [address] [place] [address] * Vancomycin, Peak, Plasma Please draw ~2 hours after 0800 dose of vancomycin finishes infusing. Consider obtaining level via peripheral stick. If peripheral stick is not feasible, please ensure that line is flushed well prior to drawing level. Than... (11/10/2024 10:56 AM EDT) Vancomycin, Peak, Plasma 23.8 20.0 - 40.0 ug/mL 11/10/2024 11:25 AM EDT [facility] Blood Venous blood specimen / Unknown Venipuncture / Unknown 11/10/2024 10:56 AM EDT 11/10/2024 11:00 AM EDT Narrative [facility] - 11/10/2024 11:25 AM EDT Therapeutic Peak level: 20-40ug/mL Supra-therapeutic Peak level: >40 ug/mL us Abigail Seay MD LAB BLOOD ORDERABLES Final Res ult Performing Organization Address [facility] Co de Phone Number [facility] [address] [place] [address] * (ABNORMAL) POCT glucose meter (11/10/2024 8:03 [...] for testing. Comment 11/10/2024 8:04 AM EDT [facility] Manager Power ID Esperanza Parks 11/10/2024 8:04 AM EDT [facility] Device ID [id number] 11/10/2024 8:04 AM EDT [facility] Specimen Type POC Capillary 11/10/2024 8:04 AM EDT [facility] Blood Capillary blood specimen / Unknown 11/10/2024 8:03 AM EDT 11/10/2024 8:04 AM EDT us Nathaly Nowak MD LAB POINT OF CARE TE ST DOCKED DEVICE UNSOLICITED RESULTS Final Result Performing Organization Address [facility] Co de Phone Number [facility] [address] [place] [address] * Vancomycin, Trough, Plasma Please draw ~30 minutes prior to dose due at 0800 on 11/10. Please do NOThold dose awaiting level to return. Consider obtaining level via peripheral stick. If peripheral stick is not feasible, please ensure that line is... (11/10/2024 7:27 AM EDT) Vancomycin, Trough, Plasma 16.2 10.0 - 20.0 ug/mL 11/10/2024 8:24 AM EDT [facility] Blood Venous blood specimen / Unknown Venipuncture / Unknown 11/10/2024 7:27 AM EDT 11/10/2024 7:51 AM EDT Narrative [facility] - 11/10/2024 8:24 AM EDT Therapeutic Trough level: 10-20ug/mL Supra-therapeutic Trough level: >20 ug/mL us Abigail Seay MD LAB BLOOD ORDERABLES Final Res ult [facility] [address] [place] [address] * (ABNORMAL) CBC and Differential (11/10/2024 12:31 AM EDT) WBC Count 10.80(H) 3.70 - 10.30 10*3/uL LAB HEMATOLOGY METHOD 11/10/2024 12:53 AM EDT [facility] RBC Count 3.06(L) 4.60 - 6.10 10*6/uL LAB HEMATOLOGY METHOD 11/10/2024 12:53 AM EDT [facility] HGB 9.1(L) 13.7 - 17.5 g/dL LAB HEMATOLOGY METHOD 11/10/2024 12:53 AM EDT [facility] HCT 28.0(L) 40.0 - 51.0 % LAB HEMATOLOGY METHOD 11/10/2024 12:53 AM EDT [facility] Platelet Count 501(H) 155 - 369 10*3/uL LAB HEMATOLOGY METHOD 11/10/2024 12:53 AM EDT [facility] MCV 92 79 - 98 fL LAB HEMATOLOGY METHOD 11/10/2024 12:53 AM EDT [facility] MCH 29.7 26.0 - 32.0 pg LAB HEMATOLOGY METHOD 11/10/2024 12:53 AM EDT [facility] MCHC 32.5 30.7 - 35.5 g/dL LAB HEMATOLOGY METHOD 11/10/2024 12:53 AM EDT [facility] RDW 13.2 11.5 - 14.5 % LAB HEMATOLOGY METHOD 11/10/2024 12:53 AM EDT [facility] MPV 8.8 8.8 - 12.5 fL LAB HEMATOLOGY METHOD 11/10/2024 12:53 AM EDT [facility] nRBC 0.0 <=0.0 per 100 WBCs LAB HEMATOLOGY METHOD 11/10/2024 12:53 AM EDT [facility] Differential Type Automated LAB HEMATOLOGY METHOD 11/10/2024 12:53 AM EDT [facility] Neutrophils % 77 % LAB HEMATOLOGY METHOD 11/10/2024 12:53 AM EDT [facility] Lymphocytes % 13 % LAB HEMATOLOGY METHOD 11/10/2024 12:53 AM EDT [facility] Monocytes % 8 % LAB HEMATOLOGY METHOD 11/10/2024 12:53 AM EDT [facility] Eosinophils % 1 % LAB HEMATOLOGY METHOD 11/10/2024 12:53 AM EDT [facility] Basophils % 0 % LAB HEMATOLOGY METHOD 11/10/2024 12:53 AM EDT [facility] Immature Granulocytes % 1 % LAB HEMATOLOGY METHOD 11/10/2024 12:53 AM EDT [facility] Neutrophils Absolute 8.32(H) 1.60 - 6.10 10*3/uL LAB HEMATOLOGY METHOD 11/10/2024 12:53 AM EDT [facility] Lymphocytes Absolute 1.40 1.20 - 3.90 10*3/uL LAB HEMATOLOGY METHOD 11/10/2024 12:53 AM EDT [facility] Monocytes Absolute 0.89 0.30 - 0.90 10*3/uL LAB HEMATOLOGY METHOD 11/10/2024 12:53 AM EDT [facility] Eosinophils Absolute 0.09 0.00 - 0.50 10*3/uL LAB HEMATOLOGY METHOD 11/10/2024 12:53 AM EDT [facility] Basophils Absolute 0.04 0.00 - 0.10 10*3/uL LAB HEMATOLOGY METHOD 11/10/2024 12:53 AM EDT [facility] Immature Granulocytes Absolute 0.06 0.00 - 0.06 10*3/uL LAB HEMATOLOGY METHOD 11/10/2024 12:53 AM EDT [facility] Blood Venous blood specimen / Unknown Venipuncture / Unknown 11/10/2024 12:31 AM EDT 11/10/2024 12:37 AM EDT Narrative [facility] - 11/10/2024 12:53 AM EDT Therapeutic decision making should be based on absolute values, rather than percentages. us Nathaly Nowak MD LAB BLOOD ORDERABLES Final Resu lt [facility] [address] [place] [address] * (ABNORMAL) Comprehensive Metabolic Panel, Plasma (11/10/2024 12:31 AM EDT) Glucose, Plasma 185(H) 74 - 99 mg/dL 11/10/2024 1:05 AM EDT [facility] BUN, Plasma 9 8 - 23 mg/dL 11/10/2024 1:05 AM EDT [facility] Creatinine, Plasma 0.72 0.70 - 1.20 mg/dL 11/10/2024 1:05 AM EDT [facility] BUN/Creatinine Ratio 13 11/10/2024 1:05 AM EDT [facility] Sodium, Plasma 135(L) 136 - 145 mmol/L 11/10/2024 1:05 AM EDT [facility] Potassium, Plasma 4.0 3.6 - 4.9 mmol/L 11/10/2024 1:05 AM EDT [facility] Chloride, Plasma 106 97 - 107 mmol/L 11/10/2024 1:05 AM EDT [facility] CO2, Plasma 19(L) 22 - 29 mmol/L 11/10/2024 1:05 AM EDT [facility] Anion Gap 10 6 - 16 mmol/L 11/10/2024 1:05 AM EDT [facility] Total Calcium, Plasma 7.8(L) 8.9 - 10.2 mg/dL 11/10/2024 1:05 AM EDT [facility] Total Protein 5.6(L) 6.3 - 7.9 g/dL 11/10/2024 1:05 AM EDT [facility] Albumin, Plasma 3.1(L) 3.5 - 5.2 g/dL 11/10/2024 1:05 AM EDT [facility] AST, Plasma 33 10 - 50 U/L 11/10/2024 1:05 AM EDT [facility] ALT, Plasma 25 10 - 50 U/L 11/10/2024 1:05 AM EDT [facility] Alkaline Phosphatase, Plasma 108 40 - 115 U/L 11/10/2024 1:05 AM EDT [facility] Total Bilirubin, Plasma <0.2(L) 0.2 - 1.1 mg/dL 11/10/2024 1:05 AM EDT [facility] eGFRcr 101.4 mL/min/1.7 3m*2 11/10/2024 1:05 AM EDT [facility] Comment:Reported eGFRcr in m L/min/1.73m2 is based the CKD-EPI 2020 equation that does not use a race coefficient. Blood Venous blood specimen / Unknown Venipuncture / Unknown 11/10/2024 12:31 AM EDT 11/10/2024 12:37 AM EDT us Nathaly Nowak MD LAB BLOOD ORDERABLES Final Resu lt [facility] [address] [place] [address] * (ABNORMAL) POCT glucose meter (11/09/2024 8:04 [...] Comment 11/09/2024 8:06 PM EDT [facility] LAB Manager Power ID Maximiliano Hansen II 11/09/2024 8:06 PM EDT [facility]ARE LAB Device ID [id number] 11/09/2024 8:06 PM EDT [facility] LAB Specimen Type POC Capillary 11/09/2024 8:06 PM EDT [facility] LAB Blood Capillary blood specimen / Unknown 11/09/2024 8:04 PM EDT 11/09/2024 8:06 PM EDT Nathaly Nowak MD LAB POINT OF CARE TE ST DOCKED DEVICE UNSOLICITED RESULTS Final Result Performing Organization Address [facility] de Phone Number HEALTHCARE LAB [address] [place] [address] * (ABNORMAL) POCT glucose meter (11/09/2024 4:36 PM EDT) [facility] POCT Glucose 166(H) 74 - 99 [...] Comment 11/09/2024 4:38 PM EDT [facility]ALTH[facility]ARE LAB Manager Power ID Kristian Sosa 11/09/2024 4:38 PM EDT HEALTH[facility]ARE LAB Device ID [id number] 11/09/2024 4:38 PM EDT HEALTH[facility]ARE LAB Specimen Type POC Capillary 11/09/2024 4:38 PM EDT [facility] LAB Blood Capillary blood specimen / Unknown 11/09/2024 4:36 PM EDT 11/09/2024 4:38 PM EDT Nathaly Nowak MD LAB POINT OF CARE TE ST DOCKED DEVICE UNSOLICITED RESULTS Final Result Performing Organization Address [facility] de Phone Number [facility] [address] [place] [address] * PICC SINGLE LUMEN (SMARTFORM LINK) (11/09/2024 1:11 PM EDT) Narrative Estefani Barraza RN - 11/09/2024 1:11 PM EDT Estefani Barraza RN 11/09/2024 1:12 PM Insert PICC line Date/Time: 11/09/2024 1:11 PM Performed by: Estefani Barraza RN Authorized by: Nathaly Nowak MD [place] Protocol: Verbal consent obtained?: Yes Written consent [...] selection rationale: Left pacemaker Catheter Lot #: [id number] Catheter kelly machine operator: Neuravi Catheter placed: Single lumen Catheter size: 4 Fr Catheter trimmed length: 42 Catheter threaded length: 42 Vein placed in: SVC Catheter cm indwellin Catheter cm outside: 0 Placement confirmed by: [employer] 3CG technology Pre-procedure: Landmarks identified Ultrasound guidance: [...] - 99 mg/dL 11/09/2024 11:51 AM EDT [facility] Comment:Accuracy of a glucos e [...] Comment 11/09/2024 11:51 AM EDT HEALTHCARE LAB Manager Power ID Kristian Sosa 11/09/2024 11:51 AM EDT HEALTHCARE LAB Device ID [id number] 11/09/2024 11:51 AM EDT HEALTHCARE LAB Specimen Type POC Capillary 11/09/2024 11:51 AM EDT HEALTH[facility]ARE LAB Blood Capillary blood specimen / Unknown 11/09/2024 11:50 AM EDT 11/09/2024 11:51 AM EDT Nathaly Nowak MD LAB POINT OF CARE TE ST DOCKED DEVICE UNSOLICITED RESULTS Final Result Performing Organization Address City/[facility]/ZIP Co de Phone Number [facility]CARE LAB [address] [place] [address] * (ABNORMAL) POCT glucose meter (11/09/2024 8:14 AM EDT) [facility] Signature POCT Glucose 153(H) 74 - 99 [...] Comment 11/09/2024 8:15 AM EDT HEALTHCARE LAB Manager Power ID Kristian Sosa 11/09/2024 8:15 AM EDT HEALTHCARE LAB Device ID [id number] 11/09/2024 8:15 AM EDT HEALTHCARE LAB Specimen Type POC Capillary 11/09/2024 8:15 AM EDT HEALTH[facility]ARE LAB Blood Capillary blood specimen / Unknown 11/09/2024 8:14 AM EDT 11/09/2024 8:15 AM EDT Nathaly Nowak MD LAB POINT OF CARE TE ST DOCKED DEVICE UNSOLICITED RESULTS Final Result Performing Organization Address City/[facility]/ZIP Co de Phone Number [facility]ARE LAB [address] [place] [address] * (ABNORMAL) CBC and Differential (11/09/2024 4:15 AM EDT) [facility] Signature WBC Count 10.27 3.70 - 10.30 10*3/uL LAB HEMATOLOGY METHOD 11/09/2024 4:26 AM EDT [facility] RBC Count 3.14(L) 4.60 - 6.10 10*6/uL LAB HEMATOLOGY METHOD 11/09/2024 4:26 AM EDT [facility] HGB 9.2(L) 13.7 - 17.5 g/dL LAB HEMATOLOGY METHOD 11/09/2024 4:26 AM EDT [facility] HCT 28.3(L) 40.0 - 51.0 % LAB HEMATOLOGY METHOD 11/09/2024 4:26 AM EDT [facility] Platelet Count 468(H) 155 - 369 10*3/uL LAB HEMATOLOGY METHOD 11/09/2024 4:26 AM EDT [facility] MCV 90 79 - 98 fL LAB HEMATOLOGY METHOD 11/09/2024 4:26 AM EDT [facility] MCH 29.3 26.0 - 32.0 pg LAB HEMATOLOGY METHOD 11/09/2024 4:26 AM EDT [facility] MCHC 32.5 30.7 - 35.5 g/dL LAB HEMATOLOGY METHOD 11/09/2024 4:26 AM EDT [facility] RDW 13.1 11.5 - 14.5 % LAB HEMATOLOGY METHOD 11/09/2024 4:26 AM EDT [facility] MPV 8.7(L) 8.8 - 12.5 fL LAB HEMATOLOGY METHOD 11/09/2024 4:26 AM EDT [facility] nRBC 0.0 <=0.0 per 100 WBCs LAB HEMATOLOGY METHOD 11/09/2024 4:26 AM EDT [facility] Differential Type Automated LAB HEMATOLOGY METHOD 11/09/2024 4:26 AM EDT [facility] Neutrophils % 77 % LAB HEMATOLOGY METHOD 11/09/2024 4:26 AM EDT [facility] Lymphocytes % 13 % LAB HEMATOLOGY METHOD 11/09/2024 4:26 AM EDT [facility] Monocytes % 8 % LAB HEMATOLOGY METHOD 11/09/2024 4:26 AM EDT [facility] Eosinophils % 1 % LAB HEMATOLOGY METHOD 11/09/2024 4:26 AM EDT [facility] Basophils % 0 % LAB HEMATOLOGY METHOD 11/09/2024 4:26 AM EDT [facility] Immature Granulocytes % 1 % LAB HEMATOLOGY METHOD 11/09/2024 4:26 AM EDT [facility] Neutrophils Absolute 7.97(H) 1.60 - 6.10 10*3/uL LAB HEMATOLOGY METHOD 11/09/2024 4:26 AM EDT [facility] Lymphocytes Absolute 1.32 1.20 - 3.90 10*3/uL LAB HEMATOLOGY METHOD 11/09/2024 4:26 AM EDT [facility] Monocytes Absolute 0.83 0.30 - 0.90 10*3/uL LAB HEMATOLOGY METHOD 11/09/2024 4:26 AM EDT [facility] Eosinophils Absolute 0.07 0.00 - 0.50 10*3/uL LAB HEMATOLOGY METHOD 11/09/2024 4:26 AM EDT [facility] Basophils Absolute 0.03 0.00 - 0.10 10*3/uL LAB HEMATOLOGY METHOD 11/09/2024 4:26 AM EDT [facility] Immature Granulocytes Absolute 0.05 0.00 - 0.06 10*3/uL LAB HEMATOLOGY METHOD 11/09/2024 4:26 AM EDT [facility] Blood Venous blood specimen / Unknown Venipuncture / Unknown 11/09/2024 4:15 AM EDT 11/09/2024 4:18 AM EDT Narrative [facility] - 11/09/2024 4:26 AM EDT Therapeutic decision making should be based on absolute values, rather than percentages. us Nathaly Nowak MD LAB BLOOD ORDERABLES Final Resu lt [facility] [address] [place] [address] * (ABNORMAL) Comprehensive Metabolic Panel, Plasma (11/09/2024 4:15 AM EDT) Pathologist [facility] Glucose, Plasma 171(H) 74 - 99 mg/dL 11/09/2024 4:47 AM EDT [facility] BUN, Plasma 9 8 - 23 mg/dL 11/09/2024 4:47 AM EDT [facility] Creatinine, Plasma 0.67(L) 0.70 - 1.20 mg/dL 11/09/2024 4:47 AM EDT [facility] BUN/Creatinine Ratio 13 11/09/2024 4:47 AM EDT [facility] Sodium, Plasma 134(L) 136 - 145 mmol/L 11/09/2024 4:47 AM EDT [facility] Potassium, Plasma 4.1 3.6 - 4.9 mmol/L 11/09/2024 4:47 AM EDT [facility] Chloride, Plasma 104 97 - 107 mmol/L 11/09/2024 4:47 AM EDT [facility] CO2, Plasma 21(L) 22 - 29 mmol/L 11/09/2024 4:47 AM EDT [facility] Anion Gap 9 6 - 16 mmol/L 11/09/2024 4:47 AM EDT [facility] Total Calcium, Plasma 8.4(L) 8.9 - 10.2 mg/dL 11/09/2024 4:47 AM EDT [facility] Total Protein 5.8(L) 6.3 - 7.9 g/dL 11/09/2024 4:47 AM EDT [facility] Albumin, Plasma 3.2(L) 3.5 - 5.2 g/dL 11/09/2024 4:47 AM EDT [facility] AST, Plasma 18 10 - 50 U/L 11/09/2024 4:47 AM EDT [facility] ALT, Plasma 17 10 - 50 U/L 11/09/2024 4:47 AM EDT [facility] Alkaline Phosphatase, Plasma 110 40 - 115 U/L 11/09/2024 4:47 AM EDT [facility] Total Bilirubin, Plasma <0.2(L) 0.2 - 1.1 mg/dL 11/09/2024 4:47 AM EDT [facility] eGFRcr 103.6 mL/min/1.7 3m*2 11/09/2024 4:47 AM EDT [facility] Comment:Reported eGFRcr in m L/min/1.73m2 is based the CKD-EPI 2020 equation that does not use a race coefficient. Blood Venous blood specimen / Unknown Venipuncture / Unknown 11/09/2024 4:15 AM EDT 11/09/2024 4:18 AM EDT Nathaly Nowak MD LAB BLOOD ORDERABLES Final Resu lt Performing Organization Address City/[facility]/ZIP Co de Phone Number [facility] [address] [place] [address] * (ABNORMAL) POCT glucose meter (11/09/2024 3:30 [...] Comment 11/09/2024 3:31 AM EDT HEALTHCARE LAB Manager Power ID Maximiliano Hansen II 11/09/2024 3:31 AM EDT HEALTHCARE LAB Device ID [id number] 11/09/2024 3:31 AM EDT [facility] Specimen Type POC Capillary 11/09/2024 3:31 AM EDT [facility] Blood Capillary blood specimen / Unknown 11/09/2024 3:30 AM EDT 11/09/2024 3:31 AM EDT Nathaly Nowak MD LAB POINT OF CARE TE ST DOCKED DEVICE UNSOLICITED RESULTS Final Result Performing Organization Address City/[facility]/ZIP Co de Phone Number HEALTHCARE LAB [address] [place] [address] * (ABNORMAL) POCT glucose meter (11/08/2024 7:21 [...] Comment 11/08/2024 7:22 PM EDT HEALTHCARE LAB Manager Power ID Maximiliano Hansen II 11/08/2024 7:22 PM EDT HEALTHCARE LAB Device ID [id number] 11/08/2024 7:22 PM EDT HEALTHCARE LAB Specimen Type POC Capillary 11/08/2024 7:22 PM EDT HEALTHCARE LAB Blood Capillary blood specimen / Unknown 11/08/2024 7:21 PM EDT 11/08/2024 7:22 PM EDT Nathaly Nowak MD LAB POINT OF CARE TE ST DOCKED DEVICE UNSOLICITED RESULTS Final Result Performing Organization Address City/State/[facility] Co de Phone Number HEALTHCARE LAB [address] [place] [address] * (ABNORMAL) POCT glucose meter (11/08/2024 5:12 [...] Comment 11/08/2024 5:14 PM EDT HEALTHCARE LAB Manager Power ID Estefani Sheth 11/08/2024 5:14 PM EDT HEALTHCARE LAB Device ID [id number] 11/08/2024 5:14 PM EDT HEALTHCARE LAB Specimen Type POC Capillary 11/08/2024 5:14 PM EDT HEALTH[facility]ARE LAB Blood Capillary blood specimen / Unknown 11/08/2024 5:12 PM EDT 11/08/2024 5:14 PM EDT Nathaly Nowak MD LAB POINT OF CARE TE ST DOCKED DEVICE UNSOLICITED RESULTS Final Result Performing Organization Address City/[facility] Co de Phone Number HEALTHCARE LAB [address] [place] [address] * (ABNORMAL) POCT glucose meter (11/08/2024 12:03 PM EDT) [facility] POCT Glucose 191(H) 74 - 99 [...] for testing. Comment 11/08/2024 12:05 PM EDT [facility] LAB Manager Power ID Estefani Sheth 11/08/2024 12:05 PM EDT [facility] LAB Device ID [id number] 11/08/2024 12:05 PM EDT [facility] LAB Specimen Type POC Capillary 11/08/2024 12:05 PM EDT [facility] Blood Capillary blood specimen / Unknown 11/08/2024 12:03 PM EDT 11/08/2024 12:05 PM EDT Nathaly Nowak MD LAB POINT OF CARE TE ST DOCKED DEVICE UNSOLICITED RESULTS Final Result Performing Organization Address City/[facility] Co de Phone Number HEALTHCARE LAB [address] [place] [address] * Vancomycin, Peak, Plasma Please draw ~2 hours after 11/08 0600 dose of vancomycin finishes infusing.Consider obtaining level via peripheral stick. If peripheral stick is not feasible, please ensure that line is flushed well prior to drawing level.... (11/08/2024 9:24 AM EDT) Pathologist [facility] Vancomycin, Peak, Plasma 29.1 20.0 - 40.0 ug/mL 11/08/2024 10:31 AM EDT [facility] Blood Venous blood specimen / Unknown Venipuncture / Unknown 11/08/2024 9:24 AM EDT 11/08/2024 9:47 AM EDT Narrative [facility] - 11/08/2024 10:31 AM EDT Therapeutic Peak level: 20-40ug/mL Supra-therapeutic Peak level: >40 ug/mL us Nathaly Nowak MD LAB BLOOD ORDERABLES Final Resu lt Performing Organization Address City/[facility]/ZIP Co de Phone Number [facility] [address] [place] [address] * (ABNORMAL) POCT glucose meter (11/08/2024 8:00 AM EDT) Pathologist [facility] POCT Glucose 150(H) 74 - [...] Comment 11/08/2024 8:01 AM EDT HEALTHCARE LAB Manager Power ID Estefani Sheth L 11/08/2024 8:01 AM EDT HEALTHCARE LAB Device ID [id number] 11/08/2024 8:01 AM EDT [facility] LAB Specimen Type POC Capillary 11/08/2024 8:01 AM EDT [facility] Blood Capillary blood specimen / Unknown 11/08/2024 8:00 AM EDT 11/08/2024 8:01 AM EDT us Nathaly Nowak MD LAB POINT OF CARE TE ST DOCKED DEVICE UNSOLICITED RESULTS Final Result Performing Organization Address City/[facility]/ZIP Co de Phone Number [facility]ALTH[facility]ARE LAB [address] [place] [address] * (ABNORMAL) CBC and Differential (11/08/2024 4:39 AM EDT) WBC Count 9.18 3.70 - 10.30 10*3/uL LAB HEMATOLOGY METHOD 11/08/2024 4:58 AM EDT [facility] RBC Count 3.11(L) 4.60 - 6.10 10*6/uL LAB HEMATOLOGY METHOD 11/08/2024 4:58 AM EDT [facility] HGB 9.2(L) 13.7 - 17.5 g/dL LAB HEMATOLOGY METHOD 11/08/2024 4:58 AM EDT [facility] HCT 28.9(L) 40.0 - 51.0 % LAB HEMATOLOGY METHOD 11/08/2024 4:58 AM EDT [facility] Platelet Count 485(H) 155 - 369 10*3/uL LAB HEMATOLOGY METHOD 11/08/2024 4:58 AM EDT [facility] MCV 93 79 - 98 fL LAB HEMATOLOGY METHOD 11/08/2024 4:58 AM EDT [facility] MCH 29.6 26.0 - 32.0 pg LAB HEMATOLOGY METHOD 11/08/2024 4:58 AM EDT [facility] MCHC 31.8 30.7 - 35.5 g/dL LAB HEMATOLOGY METHOD 11/08/2024 4:58 AM EDT [facility] RDW 13.0 11.5 - 14.5 % LAB HEMATOLOGY METHOD 11/08/2024 4:58 AM EDT [facility] MPV 8.8 8.8 - 12.5 fL LAB HEMATOLOGY METHOD 11/08/2024 4:58 AM EDT [facility] nRBC 0.0 <=0.0 per 100 WBCs LAB HEMATOLOGY METHOD 11/08/2024 4:58 AM EDT [facility] Differential Type Automated LAB HEMATOLOGY METHOD 11/08/2024 4:58 AM EDT [facility] Neutrophils % 69 % LAB HEMATOLOGY METHOD 11/08/2024 4:58 AM EDT [facility] Lymphocytes % 17 % LAB HEMATOLOGY METHOD 11/08/2024 4:58 AM EDT [facility] Monocytes % 10 % LAB HEMATOLOGY METHOD 11/08/2024 4:58 AM EDT [facility] Eosinophils % 2 % LAB HEMATOLOGY METHOD 11/08/2024 4:58 AM EDT [facility] Basophils % 1 % LAB HEMATOLOGY METHOD 11/08/2024 4:58 AM EDT [facility] Immature Granulocytes % 1 % LAB HEMATOLOGY METHOD 11/08/2024 4:58 AM EDT [facility] Neutrophils Absolute 6.40(H) 1.60 - 6.10 10*3/uL LAB HEMATOLOGY METHOD 11/08/2024 4:58 AM EDT [facility] Lymphocytes Absolute 1.59 1.20 - 3.90 10*3/uL LAB HEMATOLOGY METHOD 11/08/2024 4:58 AM EDT [facility] Monocytes Absolute 0.87 0.30 - 0.90 10*3/uL LAB HEMATOLOGY METHOD 11/08/2024 4:58 AM EDT [facility] Eosinophils Absolute 0.22 0.00 - 0.50 10*3/uL LAB HEMATOLOGY METHOD 11/08/2024 4:58 AM EDT [facility] Basophils Absolute 0.05 0.00 - 0.10 10*3/uL LAB HEMATOLOGY METHOD 11/08/2024 4:58 AM EDT [facility] Immature Granulocytes Absolute 0.05 0.00 - 0.06 10*3/uL LAB HEMATOLOGY METHOD 11/08/2024 4:58 AM EDT [facility] Blood Venous blood specimen / Unknown Venipuncture / Unknown 11/08/2024 4:39 AM EDT 11/08/2024 4:49 AM EDT Narrative [facility] - 11/08/2024 4:58 AM EDT Therapeutic decision making should be based on absolute values, rather than percentages. us Nathaly Nowak MD LAB BLOOD ORDERABLES Final Resu lt [facility] [address] [place] [address] * (ABNORMAL) Comprehensive Metabolic Panel, Plasma (11/08/2024 4:39 AM EDT) Glucose, Plasma 255(H) 74 - 99 mg/dL 11/08/2024 5:20 AM EDT [facility] BUN, Plasma 10 8 - 23 mg/dL 11/08/2024 5:20 AM EDT [facility] Creatinine, Plasma 0.75 0.70 - 1.20 mg/dL 11/08/2024 5:20 AM EDT [facility] BUN/Creatinine Ratio 13 11/08/2024 5:20 AM EDT [facility] Sodium, Plasma 133(L) 136 - 145 mmol/L 11/08/2024 5:20 AM EDT [facility] Potassium, Plasma 5.2(H) 3.6 - 4.9 mmol/L 11/08/2024 5:20 AM EDT [facility] Chloride, Plasma 105 97 - 107 mmol/L 11/08/2024 5:20 AM EDT [facility] CO2, Plasma 20(L) 22 - 29 mmol/L 11/08/2024 5:20 AM EDT [facility] Anion Gap 8 6 - 16 mmol/L 11/08/2024 5:20 AM EDT [facility] Total Calcium, Plasma 7.7(L) 8.9 - 10.2 mg/dL 11/08/2024 5:20 AM EDT [facility] Total Protein 5.6(L) 6.3 - 7.9 g/dL 11/08/2024 5:20 AM EDT [facility] Albumin, Plasma 2.8(L) 3.5 - 5.2 g/dL 11/08/2024 5:20 AM EDT [facility] AST, Plasma 20 10 - 50 U/L 11/08/2024 5:20 AM EDT [facility] Comment:Hemolyzed, result ma y be falsely increased. ALT, Plasma 14 10 - 50 U/L 11/08/2024 5:20 AM EDT [facility] Alkaline Phosphatase, Plasma 119(H) 40 - 115 U/L 11/08/2024 5:20 AM EDT [facility] Total Bilirubin, Plasma <0.2(L) 0.2 - 1.1 mg/dL 11/08/2024 5:20 AM EDT [facility] eGFRcr 100.1 mL/min/1.7 3m*2 11/08/2024 5:20 AM EDT [facility] Comment:Reported eGFRcr in m L/min/1.73m2 is based the CKD-EPI 2020 equation that does not use a race coefficient. Blood Venous blood specimen / Unknown Venipuncture / Unknown 11/08/2024 4:39 AM EDT 11/08/2024 4:43 AM EDT Nathaly Nowak MD LAB BLOOD ORDERABLES Final Resu Performing Organization Address [facility] [place] [address] * Vancomycin, Trough, Plasma Please draw ~30 minutes prior to dose due at 0600 on 11/08. Please do NOThold dose awaiting level to return. Consider obtaining level via peripheral stick. If peripheral stick is not feasible, please ensure that line is... (11/08/2024 4:39 AM EDT) [facility] Vancomycin, Trough, Plasma 18.7 10.0 - 20.0 ug/mL 11/08/2024 5:22 AM EDT [facility] Blood Venous blood specimen / Unknown Venipuncture / Unknown 11/08/2024 4:39 AM EDT 11/08/2024 4:43 AM EDT Narrative [facility] - 11/08/2024 5:22 AM EDT Therapeutic Trough level: 10-20ug/mL Supra-therapeutic Trough level: >20 ug/mL Nathaly Nowak MD LAB BLOOD ORDERABLES [facility] Per[facility] Organization Address [facility] Phone Number [facility] [address] [place] [address] * (ABNORMAL) POCT glucose meter (11/07/2024 7:26 PM EDT) [facility] POCT Glucose 172(H) 74 - 99 mg/dL 11/07/2024 7:28 PM EDT [facility] Comment:Accuracy of a glucos e result [...] 11/07/2024 7:28 PM EDT [facility] Manager Power ID Hansen Maximiliano WALTERS 11/07/2024 7:28 PM EDT [facility] Device ID [id number] 11/07/2024 7:28 PM EDT [facility]ALTH[facility]ARE LAB Specimen Type POC Capillary 11/07/2024 7:28 PM EDT [facility] Blood Capillary blood specimen / Unknown 11/07/2024 7:26 PM EDT 11/07/2024 7:28 PM EDT Nathaly Nowak MD LAB POINT OF CARE TE ST DOCKED DEVICE UNSOLICITED RESULTS Final Result Performing Organization Address City/[facility]/ZIP Co de Phone Number HEALTHCARE LAB [address] [place] [address] * (ABNORMAL) POCT glucose meter (11/07/2024 5:51 [...] Comment 11/07/2024 5:52 PM EDT [facility]ALTH[facility]ARE LAB Manager Power ID Brigitte Castellon 11/07/2024 5:52 PM EDT [facility]ALTH[facility]ARE LAB Device ID [id number] 11/07/2024 5:52 PM EDT HEALTHCARE LAB Specimen Type POC Capillary 11/07/2024 5:52 PM EDT [facility] Blood Capillary blood specimen / Unknown 11/07/2024 5:51 PM EDT 11/07/2024 5:52 PM EDT Nathaly Nowak MD LAB POINT OF CARE TE ST DOCKED DEVICE UNSOLICITED RESULTS Final Result [facility] [address] [place] [address] * (ABNORMAL) POCT glucose meter (11/07/2024 4:47 [...] 11/07/2024 4:48 PM EDT [facility] Manager Power ID Estefani Sheth 11/07/2024 4:48 PM EDT HEALTHCARE LAB Device ID [id number] 11/07/2024 4:48 PM EDT HEALTHCARE LAB Specimen Type POC Capillary 11/07/2024 4:48 PM EDT HEALTH[facility]ARE LAB Blood Capillary blood specimen / Unknown 11/07/2024 4:47 PM EDT 11/07/2024 4:48 PM EDT us Nathaly Nowak MD LAB POINT OF CARE TE ST DOCKED DEVICE UNSOLICITED RESULTS Final Result Performing Organization Address City/State/[facility] Co de Phone Number [facility] [address] [place] [address] * (ABNORMAL) POCT glucose meter (11/07/2024 12:22 PM EDT) [facility] POCT Glucose 172(H) 74 - 99 [...] 11/07/2024 12:24 PM EDT [facility] Manager Power ID Estefani Sheth 11/07/2024 12:24 PM EDT [facility] Device ID [id number] 11/07/2024 12:24 PM EDT [facility] Specimen Type POC Capillary 11/07/2024 12:24 PM EDT HEALTHCARE LAB Blood Capillary blood specimen / Unknown 11/07/2024 12:22 PM EDT 11/07/2024 12:24 PM EDT us Nathaly Nowak MD LAB POINT OF CARE TE ST DOCKED DEVICE UNSOLICITED RESULTS Final Result [facility] [address] [place] [address] * (ABNORMAL) CBC and Differential (11/07/2024 11:37 AM EDT) WBC Count 9.96 3.70 - 10.30 10*3/uL LAB HEMATOLOGY METHOD 11/07/2024 12:33 PM EDT [facility] RBC Count 2.81(L) 4.60 - 6.10 10*6/uL LAB HEMATOLOGY METHOD 11/07/2024 12:33 PM EDT [facility] HGB 8.5(L) 13.7 - 17.5 g/dL LAB HEMATOLOGY METHOD 11/07/2024 12:33 PM EDT [facility] HCT 26.0(L) 40.0 - 51.0 % LAB HEMATOLOGY METHOD 11/07/2024 12:33 PM EDT [facility] Platelet Count 524(H) 155 - 369 10*3/uL LAB HEMATOLOGY METHOD 11/07/2024 12:33 PM EDT [facility] MCV 93 79 - 98 fL LAB HEMATOLOGY METHOD 11/07/2024 12:33 PM EDT [facility] MCH 30.2 26.0 - 32.0 pg LAB HEMATOLOGY METHOD 11/07/2024 12:33 PM EDT [facility] MCHC 32.7 30.7 - 35.5 g/dL LAB HEMATOLOGY METHOD 11/07/2024 12:33 PM EDT [facility] RDW 13.1 11.5 - 14.5 % LAB HEMATOLOGY METHOD 11/07/2024 12:33 PM EDT [facility] MPV 9.0 8.8 - 12.5 fL LAB HEMATOLOGY METHOD 11/07/2024 12:33 PM EDT [facility] nRBC 0.0 <=0.0 per 100 WBCs LAB HEMATOLOGY METHOD 11/07/2024 12:33 PM EDT [facility] Differential Type Automated LAB HEMATOLOGY METHOD 11/07/2024 12:33 PM EDT [facility] Neutrophils % 72 % LAB HEMATOLOGY METHOD 11/07/2024 12:33 PM EDT [facility] Lymphocytes % 17 % LAB HEMATOLOGY METHOD 11/07/2024 12:33 PM EDT [facility] Monocytes % 9 % LAB HEMATOLOGY METHOD 11/07/2024 12:33 PM EDT [facility] Eosinophils % 1 % LAB HEMATOLOGY METHOD 11/07/2024 12:33 PM EDT [facility] Basophils % 1 % LAB HEMATOLOGY METHOD 11/07/2024 12:33 PM EDT [facility] Immature Granulocytes % 0 % LAB HEMATOLOGY METHOD 11/07/2024 12:33 PM EDT [facility] Neutrophils Absolute 7.19(H) 1.60 - 6.10 10*3/uL LAB HEMATOLOGY METHOD 11/07/2024 12:33 PM EDT [facility] Lymphocytes Absolute 1.66 1.20 - 3.90 10*3/uL LAB HEMATOLOGY METHOD 11/07/2024 12:33 PM EDT [facility] Monocytes Absolute 0.88 0.30 - 0.90 10*3/uL LAB HEMATOLOGY METHOD 11/07/2024 12:33 PM EDT [facility] Eosinophils Absolute 0.14 0.00 - 0.50 10*3/uL LAB HEMATOLOGY METHOD 11/07/2024 12:33 PM EDT [facility] Basophils Absolute 0.05 0.00 - 0.10 10*3/uL LAB HEMATOLOGY METHOD 11/07/2024 12:33 PM EDT [facility] Immature Granulocytes Absolute 0.04 0.00 - 0.06 10*3/uL LAB HEMATOLOGY METHOD 11/07/2024 12:33 PM EDT [facility] Blood Venous blood specimen / Unknown Venipuncture / Unknown 11/07/2024 11:37 AM EDT 11/07/2024 12:24 PM EDT Narrative [facility] - 11/07/2024 12:33 PM EDT Therapeutic decision making should be based on absolute values, rather than percentages. us Nathaly Nowak MD LAB BLOOD ORDERABLES Final Resu lt [facility] [address] [place] [address] * (ABNORMAL) Comprehensive Metabolic Panel, Plasma (11/07/2024 11:37 AM EDT) [facility] Glucose, Plasma 173(H) 74 - 99 mg/dL 11/07/2024 1:31 PM EDT [facility] BUN, Plasma 13 8 - 23 mg/dL 11/07/2024 1:31 PM EDT [facility] Creatinine, Plasma 0.92 0.70 - 1.20 mg/dL 11/07/2024 1:31 PM EDT [facility] BUN/Creatinine Ratio 11/07/2024 1:31 PM EDT [facility] Sodium, Plasma 136 136 - 145 mmol/L 11/07/2024 1:31 PM EDT [facility] Potassium, Plasma 4.0 3.6 - 4.9 mmol/L 11/07/2024 1:31 PM EDT [facility] Chloride, Plasma 104 97 - 107 mmol/L 11/07/2024 1:31 PM EDT [facility] CO2, Plasma 23 22 - 29 mmol/L 11/07/2024 1:31 PM EDT [facility] Anion Gap 9 6 - 16 mmol/L 11/07/2024 1:31 PM EDT [facility] Total Calcium, Plasma 7.8(L) 8.9 - 10.2 mg/dL 11/07/2024 1:31 PM EDT [facility] Total Protein 5.7(L) 6.3 - 7.9 g/dL 11/07/2024 1:31 PM EDT [facility] Albumin, Plasma 3.0(L) 3.5 - 5.2 g/dL 11/07/2024 1:31 PM EDT [facility] AST, Plasma 15 10 - 50 U/L 11/07/2024 1:31 PM EDT [facility] ALT, Plasma 16 10 - 50 U/L 11/07/2024 1:31 PM EDT [facility] Alkaline Phosphatase, Plasma 119(H) 40 - 115 U/L 11/07/2024 1:31 PM EDT [facility] Total Bilirubin, Plasma <0.2(L) 0.2 - 1.1 mg/dL 11/07/2024 1:31 PM EDT [facility] eGFRcr 92.3 mL/min/1.7 3m*2 11/07/2024 1:31 PM EDT [facility] Comment:Reported eGFRcr in m L/min/1.73m2 is based the CKD-EPI 2020 equation that does not use a race coefficient. Blood Venous blood specimen / Unknown Venipuncture / Unknown 11/07/2024 11:37 AM EDT 11/07/2024 12:23 PM EDT Nathaly Nowak MD LAB BLOOD ORDERABLES Final Resu lt Performing Organization Address [facility] Co de Phone Number [facility] [address] [place] [address] * Type and Screen (11/07/2024 11:37 AM [...] ORDERABLES F inal Result Performing Organization Address [facility] de Phone Number BLOOD BANK [address] [place] [address], * (ABNORMAL) POCT glucose meter (11/07/2024 10:34 AM EDT) POCT Glucose 199(H) 74 - 99 mg/dL 11/07/2024 10:36 AM EDT [facility] Comment:Accuracy of a glucos e result [...] Comment 11/07/2024 10:36 AM EDT HEALTHCARE LAB Manager Power ID Joy Iraheta 11/07/2024 10:36 AM EDT HEALTHCARE LAB Device ID [id number] 11/07/2024 10:36 AM EDT [facility]ARE LAB Specimen Type POC Capillary 11/07/2024 10:36 AM EDT [facility] LAB Blood Capillary blood specimen / Unknown 11/07/2024 10:34 AM EDT 11/07/2024 10:36 AM EDT Nathaly Nowak MD LAB POINT OF CARE TE ST DOCKED DEVICE UNSOLICITED RESULTS Final Result Performing Organization Address [facility] Co de Phone Number HEALTHCARE LAB [address] [place] [address] * (ABNORMAL) POCT glucose meter (11/07/2024 9:34 [...] Comment 11/07/2024 9:36 AM EDT HEALTHCARE LAB Manager Power ID Brigitte Castellon 11/07/2024 9:36 AM EDT HEALTHCARE LAB Device ID [id number] 11/07/2024 9:36 AM EDT HEALTHCARE LAB Specimen Type POC Capillary 11/07/2024 9:36 AM EDT [facility]ARE LAB Blood Capillary blood specimen / Unknown 11/07/2024 9:34 AM EDT 11/07/2024 9:36 AM EDT Nathaly Nowak MD LAB POINT OF CARE TE ST DOCKED DEVICE UNSOLICITED RESULTS Final Result Performing Organization Address City/[facility]/ZIP Co de Phone Number HEALTHCARE LAB [address] [place] [address] * (ABNORMAL) POCT glucose meter (11/07/2024 8:20 AM EDT) [facility] POCT Glucose 137(H) 74 - 99 [...] Comment 11/07/2024 8:22 AM EDT HEALTHCARE LAB Manager Power ID Estefani Sheth Chris 11/07/2024 8:22 AM EDT [facility] Device ID [id number] 11/07/2024 8:22 AM EDT [facility] Specimen Type POC Capillary 11/07/2024 8:22 AM EDT [facility] Blood Capillary blood specimen / Unknown 11/07/2024 8:20 AM EDT 11/07/2024 8:22 AM EDT Nathaly Nowak MD LAB POINT OF CARE TE ST DOCKED DEVICE UNSOLICITED RESULTS Final Result [facility] [address] [place] [address] * (ABNORMAL) POCT glucose meter (11/07/2024 7:21 AM EDT) [facility] POCT Glucose 151(H) 74 - 99 [...] 11/07/2024 7:22 AM EDT [facility] Manager Power ID [email or web address] 11/07/2024 7:22 AM EDT [facility] Device ID [id number] 11/07/2024 7:22 AM EDT HEALTHCARE LAB Specimen Type POC Capillary 11/07/2024 7:22 AM EDT HEALTHCARE LAB Blood Capillary blood specimen / Unknown 11/07/2024 7:21 AM EDT 11/07/2024 7:22 AM EDT Nathaly Nowak MD LAB POINT OF CARE TE ST DOCKED DEVICE UNSOLICITED RESULTS Final Result Performing Organization Address City/[facility]/ZIP Co de Phone Number HEALTHCARE LAB [address] [place] [address] * (ABNORMAL) POCT glucose meter (11/07/2024 6:25 [...] Comment 11/07/2024 6:27 AM EDT HEALTHCARE LAB Manager Power ID Nelda Gerber 11/08/19 6:27 AM EDT HEALTHCARE LAB Device ID [id number] 11/07/2024 6:27 AM EDT HEALTHCARE LAB Specimen Type POC Capillary 11/07/2024 6:27 AM EDT HEALTH[facility]ARE LAB Blood Capillary blood specimen / Unknown 11/07/2024 6:25 AM EDT 11/07/2024 6:27 AM EDT us Nathaly Nowak MD LAB POINT OF CARE TE ST DOCKED DEVICE UNSOLICITED RESULTS Final Result Performing Organization Address City/[facility] Co de Phone Number HEALTHCARE LAB [address] [place] [address] * (ABNORMAL) POCT glucose meter (11/07/2024 5:03 [...] Comment 11/07/2024 5:08 AM EDT HEALTHCARE LAB Manager Power ID Nelda Gerber 11/08/19 5:08 AM EDT HEALTHCARE LAB Device ID [id number] 11/07/2024 5:08 AM EDT HEALTHCARE LAB Specimen Type POC Capillary 11/07/2024 5:08 AM EDT HEALTH[facility]ARE LAB Blood Capillary blood specimen / Unknown 11/07/2024 5:03 AM EDT 11/07/2024 5:08 AM EDT Nathaly Nowak MD LAB POINT OF CARE TE ST DOCKED DEVICE UNSOLICITED RESULTS Final Result Performing Organization Address City/State/[facility] Co de Phone Number HEALTHCARE LAB [address] [place] [address] * (ABNORMAL) POCT glucose meter (11/07/2024 4:16 AM EDT) [facility] POCT Glucose 142(H) 74 - 99 [...] Comment 11/07/2024 4:18 AM EDT HEALTHCARE LAB Manager Power ID Nelda Gerber 11/08/19 4:18 AM EDT HEALTHCARE LAB Device ID [id number] 11/07/2024 4:18 AM EDT HEALTHCARE LAB Specimen Type POC Capillary 11/07/2024 4:18 AM EDT [facility]ALTH[facility]ARE LAB Blood Capillary blood specimen / Unknown 11/07/2024 4:16 AM EDT 11/07/2024 4:18 AM EDT Nathaly Nowak MD LAB POINT OF CARE TE ST DOCKED DEVICE UNSOLICITED RESULTS Final Result Performing Organization Address [facility] Co de Phone Number HEALTHCARE LAB [address] [place] [address] * (ABNORMAL) POCT glucose meter (11/07/2024 3:21 [...] for testing. Comment 11/07/2024 3:23 AM EDT [facility] Manager Power ID Nelda Gerber 11/08/19 3:23 AM EDT HEALTHCARE LAB Device ID [id number] 11/07/2024 3:23 AM EDT [facility] Specimen Type POC Capillary 11/07/2024 3:23 AM EDT [facility] Blood Capillary blood specimen / Unknown 11/07/2024 3:21 AM EDT 11/07/2024 3:23 AM EDT Nathaly Nowak MD LAB POINT OF CARE TE ST DOCKED DEVICE UNSOLICITED RESULTS Final Result Performing Organization Address City/[facility] Co de Phone Number HEALTHCARE LAB [address] [place] [address] * (ABNORMAL) POCT glucose meter (11/07/2024 2:10 AM EDT) Pathologist [facility] POCT Glucose 146(H) 74 - [...] 11/07/2024 2:12 AM EDT [facility] Manager Power ID Nelda Gerber 11/08/19 2:12 AM EDT HEALTHCARE LAB Device ID [id number] 11/07/2024 2:12 AM EDT HEALTHCARE LAB Specimen Type POC Capillary 11/07/2024 2:12 AM EDT HEALTHCARE LAB Blood Capillary blood specimen / Unknown 11/07/2024 2:10 AM EDT 11/07/2024 2:12 AM EDT Nathaly Nowak MD LAB POINT OF CARE TE ST DOCKED DEVICE UNSOLICITED RESULTS Final Result Performing Organization Address City/[facility] de Phone Number HEALTHCARE LAB [address] [place] [address] * (ABNORMAL) POCT glucose meter (11/07/2024 1:08 [...] Comment 11/07/2024 1:10 AM EDT HEALTHCARE LAB Manager Power ID Nelda Gerber 11/08/19 1:10 AM EDT HEALTHCARE LAB Device ID [id number] 11/07/2024 1:10 AM EDT HEALTHCARE LAB Specimen Type POC Capillary 11/07/2024 1:10 AM EDT HEALTHCARE LAB Blood Capillary blood specimen / Unknown 11/07/2024 1:08 AM EDT 11/07/2024 1:10 AM EDT Nathaly Nowak MD LAB POINT OF CARE TE ST DOCKED DEVICE UNSOLICITED RESULTS Final Result Performing Organization Address City/[facility]/ZIP Co de Phone Number HEALTHCARE LAB [address] [place] [address] * (ABNORMAL) POCT glucose meter (11/07/2024 12:10 AM EDT) [facility] POCT Glucose 127(H) 74 - 99 [...] for testing. Comment 11/07/2024 12:13 AM EDT [facility] HE[facility]CARE LAB Manager Power ID Nelda Gerber 11/08/19 12:13 AM EDT [facility] Device ID [id number] 11/07/2024 12:13 AM EDT HEALTHCARE LAB Specimen Type POC Capillary 11/07/2024 12:13 AM EDT [facility] Blood Capillary blood specimen / Unknown 11/07/2024 12:10 AM EDT 11/07/2024 12:13 AM EDT Nathaly Nowak MD LAB POINT OF CARE TE ST DOCKED DEVICE UNSOLICITED RESULTS Final Result [facility] [address] [place] [address] * (ABNORMAL) POCT glucose meter (11/06/2024 11:14 PM EDT) [facility] POCT Glucose 71(L) 74 - 99 [...] 11/06/2024 11:16 PM EDT [facility] Manager Power ID Nelda Gerber 11/07/19 11:16 PM EDT [facility] LAB Device ID [id number] 11/06/2024 11:16 PM EDT [facility] Specimen Type POC Capillary 11/06/2024 11:16 PM EDT HEALTHCARE LAB Blood Capillary blood specimen / Unknown 11/06/2024 11:14 PM EDT 11/06/2024 11:16 PM EDT Nathaly Nowak MD LAB POINT OF CARE TE ST DOCKED DEVICE UNSOLICITED RESULTS Final Result Performing Organization Address City/[facility]/ZIP Co de Phone Number HEALTHCARE LAB [address] [place] [address] * (ABNORMAL) POCT glucose meter (11/06/2024 10:07 [...] Comment 11/06/2024 10:09 PM EDT HEALTHCARE LAB Manager Power ID Nelda Gerber 11/07/19 10:09 PM EDT HEALTHCARE LAB Device ID [id number] 11/06/2024 10:09 PM EDT HEALTHCARE LAB Specimen Type POC Capillary 11/06/2024 10:09 PM EDT HEALTHCARE LAB Blood Capillary blood specimen / Unknown 11/06/2024 10:07 PM EDT 11/06/2024 10:09 PM EDT us Nathaly Nowak MD LAB POINT OF CARE TE ST DOCKED DEVICE UNSOLICITED RESULTS Final Result [facility] [address] [place] [address] * (ABNORMAL) POCT glucose meter (11/06/2024 8:22 [...] 11/06/2024 8:25 PM EDT [facility] Manager Power ID Nelda Gerber 11/07/19 8:25 PM EDT [facility] Device ID [id number] 11/06/2024 8:25 PM EDT [facility] Specimen Type POC Capillary 11/06/2024 8:25 PM EDT HEALTHCARE LAB Blood Capillary blood specimen / Unknown 11/06/2024 8:22 PM EDT 11/06/2024 8:25 PM EDT us Nathaly Nowak MD LAB POINT OF CARE TE ST DOCKED DEVICE UNSOLICITED RESULTS Final Result Performing Organization Address City/State/[facility] Co de Phone Number HEALTHCARE LAB [address] [place] [address] * (ABNORMAL) POCT glucose meter (11/06/2024 7:31 PM EDT) [facility] POCT Glucose 359(H) 74 - 99 [...] 11/06/2024 7:32 PM EDT [facility] Manager Power ID Nelda Gerber 11/07/19 7:32 PM EDT [facility] Device ID [id number] 11/06/2024 7:32 PM EDT HEALTHCARE LAB Specimen Type POC Capillary 11/06/2024 7:32 PM EDT HEALTHCARE LAB Blood Capillary blood specimen / Unknown 11/06/2024 7:31 PM EDT 11/06/2024 7:32 PM EDT Nathaly Nowak MD LAB POINT OF CARE TE ST DOCKED DEVICE UNSOLICITED RESULTS Final Result Performing Organization Address City/[facility] Co de Phone Number HEALTHCARE LAB [address] [place] [address] * (ABNORMAL) POCT glucose meter (11/06/2024 6:15 [...] for testing. Comment 11/06/2024 6:17 PM EDT [facility] Manager Power ID Estefani Sheth 11/06/2024 6:17 PM EDT [facility] Device ID [id number] 11/06/2024 6:17 PM EDT [facility] Specimen Type POC Capillary 11/06/2024 6:17 PM EDT [facility] Blood Capillary blood specimen / Unknown 11/06/2024 6:15 PM EDT 11/06/2024 6:17 PM EDT Nathaly Nowak MD LAB POINT OF CARE TE ST DOCKED DEVICE UNSOLICITED RESULTS Final Result Performing Organization Address City/[facility] Co de Phone Number HEALTHCARE LAB [address] [place] [address] * (ABNORMAL) POCT glucose meter (11/06/2024 4:57 [...] Comment 11/06/2024 4:58 PM EDT HEALTHCARE LAB Manager Power ID Estefani Sheth 11/06/2024 4:58 PM EDT HEALTHCARE LAB Device ID [id number] 11/06/2024 4:58 PM EDT HEALTHCARE LAB Specimen Type POC Capillary 11/06/2024 4:58 PM EDT HEALTHCARE LAB Blood Capillary blood specimen / Unknown 11/06/2024 4:57 PM EDT 11/06/2024 4:58 PM EDT Nathaly Nowak MD LAB POINT OF CARE TE ST DOCKED DEVICE UNSOLICITED RESULTS Final Result Performing Organization Address [facility] Co de Phone Number HEALTHCARE LAB [address] [place] [address] * (ABNORMAL) POCT glucose meter (11/06/2024 2:08 [...] Comment 11/06/2024 2:09 PM EDT HEALTHCARE LAB Manager Power ID Brigitte Castellon 11/06/2024 2:09 PM EDT HEALTHCARE LAB Device ID [id number] 11/06/2024 2:09 PM EDT HEALTHCARE LAB Specimen Type POC Capillary 11/06/2024 2:09 PM EDT HEALTHCARE LAB Blood Capillary blood specimen / Unknown 11/06/2024 2:08 PM EDT 11/06/2024 2:09 PM EDT Nathaly Nowak MD LAB POINT OF CARE TE ST DOCKED DEVICE UNSOLICITED RESULTS Final Result Performing Organization Address City/[facility]/ZIP Co de Phone Number HEALTHCARE LAB [address] [place] [address] * (ABNORMAL) POCT glucose meter (11/06/2024 12:27 [...] Comment 11/06/2024 12:28 PM EDT HEALTHCARE LAB Manager Power ID Jacinta Galloway 11/06/2024 12:28 PM EDT HEALTHCARE LAB Device ID [id number] 11/06/2024 12:28 PM EDT HEALTHCARE LAB Specimen Type POC Capillary 11/06/2024 12:28 PM EDT HEALTHCARE LAB Blood Capillary blood specimen / Unknown 11/06/2024 12:27 PM EDT 11/06/2024 12:28 PM EDT us Nathaly Nowak MD LAB POINT OF CARE TE ST DOCKED DEVICE UNSOLICITED RESULTS Final Result Performing Organization Address City/State/[facility] Co de Phone Number HEALTHCARE LAB [address] [place] [address] * (ABNORMAL) Tissue Culture and Gram Stain (11/06/2024 11:34 AM EDT) [facility] Culture Moderate Growth 7:35 AM EDT [facility] Culture 2+ Enterobacter cloacae complex(A) ANGÉLICA 11/15/2024 7:35 AM EDT [facility] Comment: This isolate has been identified using the FDA Approved [employer] System The organism value for this result has been updated. These results have been appended to the previously preliminary verified report. Edited result: Previously reported as Gram Negative Jesus on 11/07/2024 at 1434 EDT. Culture 2+ Streptococcus mitis/oralis group(A) ANGÉLICA 11/15/2024 7:35 AM EDT [facility] [facility] Comment: This isolate has been identified using the FDA Approved [employer] CA System The organism value for this result has been updated. These results have been appended to the previously preliminary verified report. Culture 2+ Pasteurella stomatis(A) ANGÉLICA 11/15/2024 7:35 AM EDT [facility] Comment: This result was determined by MALDI tof mass spectrometry using the Iwebalize database and is for research use only. The organism value for this result has been updated. These results have been appended to the previously preliminary verified report. Gram Stain Result Few Gram negative rods(A) 11/15/2024 7:35 AM EDT [facility] Gram Stain Result Moderate Polymorphonuclear leukocytes(A) 11/15/2024 7:35 AM EDT [facility] Gram Stain Result Few Gram positive cocci in pairs(A) 11/15/2024 7:35 AM EDT [facility] Tissue Topography unknown / Unknown 11/06/2024 11:34 AM EDT 11/06/2024 12:18 PM EDT Comment:Pre-op diagnosis: Surgical wound infection [T81.49XA] Narrative [facility] - 11/15/2024 7:35 AM EDT [...] GENERAL ORDAna FRITZ Edited Result - Final [facility] [address] [place] [address] * (ABNORMAL) Anaerobic Culture (11/06/2024 11:34 AM EDT) Culture No anaerobes isolated 11/14/2024 1:25 PM EDT [facility] Culture Staphylococcus pseudintermedius( A) 11/14/2024 1:25 PM EDT [facility] Comment: This result was determined by MALDI tof mass spectrometry using the Iwebalize database and is for research use only. This is an appended report. These results have been appended to a previously final verified report. Tissue Topography unknown / Unknown 11/06/2024 11:34 AM EDT 11/06/2024 12:18 PM EDT Comment:Pre-op diagnosis: Surgical wound infection [T81.49XA] Narrative [facility] - 11/14/2024 1:25 PM EDT [...] GENERAL ORDAna FRITZ Edited Result - Final [facility] [address] [place] [address] * (ABNORMAL) Routine Culture and Gram Stain (11/06/2024 11:29 AM EDT) Culture Moderate Growth 5:29 PM EDT [facility] Culture Enterobacter cloacae complex(A) 11/08/2024 5:29 PM EDT [facility] Comment: This isolate has been identified using the FDA Approved [employer] CA System For susceptibility results refer to: - [id number] The organism value for this result has been updated. These results have been appended to the previously preliminary verified report. Gram Stain Result No polymorphonuclear leukocytes seen 11/08/2024 5:29 PM EDT [facility] Gram Stain Result No organisms seen 11/08/2024 5:29 PM EDT [facility] Swab Topography unknown / Unknown 11/06/2024 11:29 AM EDT 11/06/2024 12:19 PM EDT Comment:Pre-op diagnosis: Surgical wound infection [T81.49XA] Nathaly Nowak MD LAB MICROBIOLOGY - GENERAL ORDE RABONEIDA Final Result Performing Organization Address [facility] Co de Phone Number [facility] [address] [place] [address] * Fungal Culture, Routine (11/06/2024 11:29 AM EDT) Culture No Fungal Growth at 1 Week 11/13/2024 8:29 AM EDT [facility] Swab Topography unknown / Unknown 11/06/2024 11:29 AM EDT 11/06/2024 12:19 PM EDT Comment:Pre-op diagnosis: Surgical wound infection [T81.49XA] Nathaly Nowka MD LAB MICROBIOLOGY - GENERAL ORDE RABONEIDA Final Result Performing Organization Address City/[facility]/ZIP Co de Phone Number [facility] [address] [place] [address] * (ABNORMAL) Anaerobic Culture (11/06/2024 11:29 AM EDT) Culture No anaerobes isolated 11/14/2024 1:25 PM EDT [facility] Culture Streptococcus mitis/oralis group(A) 11/14/2024 1:25 PM EDT [facility] Comment: This result was determined by MALDI tof mass spectrometry using the Iwebalize database and is for research use only. The organism value for this result has been updated. These results have been appended to the previously preliminary verified report. This is a corrected result. Previous organism was Mixed skin clifton on 11/10/2024 at 0718 EDT. Culture Staphylococcus pseudintermedius( A) 11/14/2024 1:25 PM EDT [facility] Comment: This isolate has been identified using the FDA Approved [employer] CA System This is an appended report. These results have been appended to a previously final verified report. Swab Topography unknown / Unknown 11/06/2024 11:29 AM EDT 11/06/2024 12:19 PM EDT Comment:Pre-op diagnosis: Surgical wound infection [T81.49XA] Narrative [facility] - 11/14/2024 1:25 PM EDT [...] GENERAL ATIYA FRITZ Edited Result - Final [facility] [address] [place] [address] * Routine Culture and Gram Stain (11/06/2024 11:28 AM EDT) Culture No growth at day 4 2024 11:24 AM EDT [facility] Gram Stain Result No organisms seen 11/10/2024 11:24 AM EDT [facility] Gram Stain Result No polymorphonuclear leukocytes seen 11/10/2024 11:24 AM EDT [facility] Swab Topography unknown / Unknown 11/06/2024 11:28 AM EDT 11/06/2024 12:20 PM EDT Comment:Pre-op diagnosis: Surgical wound infection [T81.49XA] us Nathaly Nowak MD LAB MICROBIOLOGY - GENERAL ORDE RABONEIDA Final Result Performing Organization Address [facility]/ZIP Co de Phone Number [facility] [address] [place] [address] * Fungal Culture, Routine (11/06/2024 11:28 AM EDT) Culture No Fungal Growth at 1 Week 11/13/2024 8:29 AM EDT [facility] Swab Topography unknown / Unknown 11/06/2024 11:28 AM EDT 11/06/2024 12:20 PM EDT Comment:Pre-op diagnosis: Surgical wound infection [T81.49XA] us Nathaly Nowak MD LAB MICROBIOLOGY - GENERAL ORDE LAM Final Result Performing Organization Address [facility] Co de Phone Number [facility] [address] [place] [address] * Anaerobic Culture (11/06/2024 11:28 AM EDT) Culture No growth at day 4 11/13/2024 12:53 PM EDT [facility] Swab Topography unknown / Unknown 11/06/2024 11:28 AM EDT 11/06/2024 12:20 PM EDT Comment:Pre-op diagnosis: Surgical wound infection [T81.49XA] us Nathaly Nowak MD LAB MICROBIOLOGY - GENERAL ORDE RABONEIDA Final Result [facility] [address] [place] [address] * (ABNORMAL) POCT glucose meter (11/06/2024 10:16 AM EDT) [facility] POCT Glucose 194(H) 74 - 99 [...] Comment 11/06/2024 10:18 AM EDT [facility] Manager Power ID Lacy Griffin 11/07/19 10:18 AM EDT [facility] LAB Device ID [id number] 11/06/2024 10:18 AM EDT [facility] Specimen Type POC Capillary 11/06/2024 10:18 AM EDT [facility] Blood Capillary blood specimen / Unknown 11/06/2024 10:16 AM EDT 11/06/2024 10:18 AM EDT Nathaly Nowak MD LAB POINT OF CARE TE ST DOCKED DEVICE UNSOLICITED RESULTS Final Result [facility] [address] [place] [address] * (ABNORMAL) POCT glucose meter (11/06/2024 5:58 AM EDT) [facility] POCT Glucose 182(H) 74 - 99 [...] Comment 11/06/2024 6:01 AM EDT [facility] LAB Manager Power ID Raj Laird 11/07/19 6:01 AM EDT [facility] LAB Device ID [id number] 11/06/2024 6:01 AM EDT [facility] Specimen Type POC Capillary 11/06/2024 6:01 AM EDT [facility] Blood Capillary blood specimen / Unknown 11/06/2024 5:58 AM EDT 11/06/2024 6:01 AM EDT Nathaly Nowak MD LAB POINT OF CARE TE ST DOCKED DEVICE UNSOLICITED RESULTS Final Result Performing Organization Address [facility] Co de Phone Number [facility] [address] [place] [address] * (ABNORMAL) POCT glucose meter (11/06/2024 5:36 AM EDT) Pathologist [facility] POCT Glucose 202(H) 74 - [...] Comment 11/06/2024 5:38 AM EDT [facility] LAB Manager Power ID Shahid Sanches 11/06/2024 5:38 AM EDT [facility] LAB Device ID [id number] 11/06/2024 5:38 AM EDT [facility] Specimen Type POC Capillary 11/06/2024 5:38 AM EDT [facility] Blood Capillary blood specimen / Unknown 11/06/2024 5:36 AM EDT 11/06/2024 5:38 AM EDT Nathaly Nowak MD LAB POINT OF CARE TE ST DOCKED DEVICE UNSOLICITED RESULTS Final Result Performing Organization Address [facility] Co de Phone Number [facility] [address] [place] [address] * (ABNORMAL) Hemoglobin A1c (11/06/2024 1:07 AM EDT) Hemoglobin A1c 7.6(H) <5.7 % 11/06/2024 11:09 AM EDT [facility] Blood Venous blood specimen / Unknown Venipuncture / Unknown 11/06/2024 1:07 AM EDT 11/06/2024 1:26 AM EDT Narrative [facility] - 11/06/2024 11:09 AM EDT HA1C Interpretive Data: Diagnosis of Diabetes: Diabetic > or = 6.5% Pre-diabetic 5.7 to 6.4% Non-diabetic < or = 5.6% Glycemic Targets for Type I and Type II Diabetics: Non- Adults <7.0% Adults <6.0% Children and Adolescents <7.5% Source: [place] [employer]. Standards of medical care in diabetes,2017. Diabetes Care.2017:40 (suppl 1):S1-S135. Nathaly Nowak MD LAB BLOOD ORDERABLES Final Resu lt Performing Organization Address [facility]/ZIP Co de Phone Number [facility] [address] [place] [address] * Blood Culture (Aerobic/Anaerobet Set) (11/06/2024 1:07 AM EDT) Culture No growth at day 5 11/11/2024 2:49 AM EDT [facility] Blood Structure of right hand / Unknown Venipuncture / Unknown 11/06/2024 1:07 AM EDT 11/06/2024 2:36 AM EDT Nathaly Nowak MD LAB MICROBIOLOGY - GENERAL ORDE RABLES Final Result [facility] [address] [place] [address] * Blood Culture (Aerobic/Anaerobet Set) (11/06/2024 1:07 AM EDT) Culture No growth at day 5 11/11/2024 3:01 AM EDT [facility] Blood Structure of antecubital vein / Unknown Venipuncture / Unknown 11/06/2024 1:07 AM EDT 11/06/2024 2:36 AM EDT us Nathaly Nowak MD LAB MICROBIOLOGY - GENERAL ORDAna FRITZ Final Result [facility] [address] [place] [address] * (ABNORMAL) Basic metabolic panel (11/06/2024 1:07 AM EDT) Glucose, Plasma 207(H) 74 - 99 mg/dL 11/06/2024 1:41 AM EDT [facility] BUN, Plasma 20 8 - 23 mg/dL 11/06/2024 1:41 AM EDT [facility] Creatinine, Plasma 0.92 0.70 - 1.20 mg/dL 11/06/2024 1:41 AM EDT [facility] BUN/Creatinine Ratio 22 11/06/2024 1:41 AM EDT [facility] Sodium, Plasma 136 136 - 145 mmol/L 11/06/2024 1:41 AM EDT [facility] Potassium, Plasma 4.5 3.6 - 4.9 mmol/L 11/06/2024 1:41 AM EDT [facility] Chloride, Plasma 104 97 - 107 mmol/L 11/06/2024 1:41 AM EDT [facility] CO2, Plasma 22 22 - 29 mmol/L 11/06/2024 1:41 AM EDT [facility] Anion Gap 10 6 - 16 mmol/L 11/06/2024 1:41 AM EDT [facility] Total Calcium, Plasma 9.0 8.9 - 10.2 mg/dL 11/06/2024 1:41 AM EDT [facility] eGFRcr 92.3 mL/min/1.7 3m*2 11/06/2024 1:41 AM EDT [facility] Comment:Reported eGFRcr in m L/min/1.73m2 is based the CKD-EPI 2020 equation that does not use a race coefficient. Blood Venous blood specimen / Unknown Venipuncture / Unknown 11/06/2024 1:07 AM EDT 11/06/2024 1:12 AM EDT us Nathaly Nowak MD LAB BLOOD ORDERABLES Final Resu lt Performing Organization Address [facility]/ZIP Co de Phone Number [facility] [address] [place] [address] * Phosphorus (11/06/2024 1:07 AM EDT) Phosphorus, Plasma 3.2 2.5 - 4.5 mg/dL 11/06/2024 1:41 AM EDT [facility] Blood Venous blood specimen / Unknown Venipuncture / Unknown 11/06/2024 1:07 AM EDT 11/06/2024 1:12 AM EDT Nathaly Nowak MD LAB BLOOD ORDERABLES Final Resu lt Performing Organization Address [facility]/ZIP Co de Phone Number [facility] [address] [place] [address] * Magnesium (11/06/2024 1:07 AM EDT) Pathologist [facility] Magnesium, Plasma 2.2 1.9 - 2.4 mg/dL 11/06/2024 1:41 AM EDT [facility] Blood Venous blood specimen / Unknown Venipuncture / Unknown 11/06/2024 1:07 AM EDT 11/06/2024 1:12 AM EDT Nathaly Nowak MD LAB BLOOD ORDERABLES Final Resu lt Performing Organization Address City/[facility]/ZIP Co de Phone Number [facility] [address] [place] [address] * (ABNORMAL) CBC (11/06/2024 1:07 AM EDT) WBC Count 9.70 3.70 - 10.30 10*3/uL LAB HEMATOLOGY METHOD 11/06/2024 1:19 AM EDT [facility] RBC Count 2.89(L) 4.60 - 6.10 10*6/uL LAB HEMATOLOGY METHOD 11/06/2024 1:19 AM EDT [facility] HGB 8.8(L) 13.7 - 17.5 g/dL LAB HEMATOLOGY METHOD 11/06/2024 1:19 AM EDT [facility] HCT 26.2(L) 40.0 - 51.0 % LAB HEMATOLOGY METHOD 11/06/2024 1:19 AM EDT [facility] Platelet Count 542(H) 155 - 369 10*3/uL LAB HEMATOLOGY METHOD 11/06/2024 1:19 AM EDT [facility] MCV 91 79 - 98 fL LAB HEMATOLOGY METHOD 11/06/2024 1:19 AM EDT [facility] MCH 30.4 26.0 - 32.0 pg LAB HEMATOLOGY METHOD 11/06/2024 1:19 AM EDT [facility] MCHC 33.6 30.7 - 35.5 g/dL LAB HEMATOLOGY METHOD 11/06/2024 1:19 AM EDT [facility] RDW 13.2 11.5 - 14.5 % LAB HEMATOLOGY METHOD 11/06/2024 1:19 AM EDT [facility] MPV 8.7(L) 8.8 - 12.5 fL LAB HEMATOLOGY METHOD 11/06/2024 1:19 AM EDT [facility] nRBC 0.0 <=0.0 per 100 WBCs LAB HEMATOLOGY METHOD 11/06/2024 1:19 AM EDT [facility] Blood Venous blood specimen / Unknown Venipuncture / Unknown 11/06/2024 1:07 AM EDT 11/06/2024 1:12 AM EDT us Nathaly Nowak MD LAB BLOOD ORDERABLES Final Resu lt Performing Organization Address City/State/[facility] Co de Phone Number [facility] [address] [place] [address] * [facility] (11/06/2024 12:58 AM EDT) Extra Hold for add-ons 11/06/2024 3:21 AM EDT [facility] Comment:Auto resulted. Blood Venous blood specimen / Unknown 11/06/2024 12:58 AM EDT 11/06/2024 1:13 AM EDT Nathaly Nowak MD LAB BLOOD ORDERABLES Final Resu lt Performing Organization Address City/[facility]/ZIP Co de Phone Number [facility] [address] [place] [address] * Gold Top (11/06/2024 12:58 AM EDT) Extra Hold for add-ons 11/06/2024 3:21 AM EDT [facility] Comment:Auto resulted. Blood Venous blood specimen / Unknown 11/06/2024 12:58 AM EDT 11/06/2024 1:13 AM EDT us Nathaly Nowak MD LAB BLOOD ORDERABLES Final Resu lt Performing Organization Address [facility] Co de Phone Number [facility] [address] [place] [address] * Light Green Top (11/06/2024 12:58 AM EDT) Extra Hold for add-ons 11/06/2024 3:21 AM EDT [facility] Comment:Auto resulted. Blood Venous blood specimen / Unknown 11/06/2024 12:58 AM EDT 11/06/2024 1:13 AM EDT us Nathaly Nowak MD LAB BLOOD ORDERABLES Final Resu lt Performing Organization Address [facility] Co de Phone Number [facility] [address] [place] [address] * Light Blue Top (11/06/2024 12:58 AM EDT) Extra Hold for add-ons 11/06/2024 3:21 AM EDT [facility] Comment:Auto resulted. Blood Venous blood specimen / Unknown 11/06/2024 12:58 AM EDT 11/06/2024 1:13 AM EDT us Nathaly Nowak MD LAB BLOOD ORDERABLES Final Resu lt Performing Organization Address [facility]/ZIP Co de Phone Number [facility] [address] [place] [address] * Light Blue Top (11/06/2024 12:58 AM EDT) Pathologist [facility] Extra Hold for add-ons 11/06/2024 3:21 AM EDT [facility] Comment:Auto resulted. Blood Venous blood specimen / Unknown 11/06/2024 12:58 AM EDT 11/06/2024 1:13 AM EDT Nathaly Nowak MD LAB BLOOD ORDERABLES Final Resu lt Performing Organization Address City/[facility]/ZIP Co de Phone Number [facility] [address] [place] [address] * (ABNORMAL) POCT glucose meter (11/06/2024 12:45 AM EDT) [facility] POCT Glucose 204(H) 74 - 99 [...] 11/06/2024 12:48 AM EDT [facility] Manager Power ID Raj Laird 11/07/19 25 12:48 AM EDT HEALTHCARE LAB Device ID [id number] 11/06/2024 12:48 AM EDT [facility]ALTH[facility]ARE LAB Specimen Type POC Capillary 11/06/2024 12:48 AM EDT [facility] Blood Capillary blood specimen / Unknown 11/06/2024 12:45 AM EDT 11/06/2024 12:48 AM EDT us Nathaly Nowak MD LAB POINT OF CARE TE ST DOCKED DEVICE UNSOLICITED RESULTS Final Result Performing Organization Address City/[facility] Co de Phone Number [facility] [address] [place] [address] documented in this encounter Visit Diagnoses Diagnosis [...] needed, Starting on Mon11/06/24 at 0031, Until [facility] 11/14/24 at 1804, Routine, line care [...] needed, Starting on Mon11/06/24 at 0753, Until [facility] 11/14/24 at 1804, Routine, On Unit - Preprocedure, line care sodium chloride 0.9 % flush 10 mL 10 mL, Intravenous, Every 12 hours, First dose on [facility] 11/09/24 at 1515, Until Discontinued, Routine Given 11/14/2024 2:42 PM EDT 10 mL Given 11/14/2024 3:03 AM EDT 10 mL Given 11/13/2024 4:43 PM EDT 10 mL Sodium Hypochlorite (Dakin's (HALF-Strength)) external solution 1 Application Irrigation, Daily, First dose on [facility] 11/09/24 at 0945, Until Discontinued, [...] Minutes, Routine 232 (New Bag - Provider: oJnathan Vale, CHRISTIAN) 232 (New Bag - Provider: [...] Jonathan Vale RN) 0856 (Given - Provider: Yzamin Bhatt RN) NIFEdipine XL (Procardia XL) 24 [...] Jonathan Vale RN) 2031 (Given - Provider: Jnoathan Vale RN) rivaroxaban (Xarelto) tablet 20 mg [...] documented as of this encounter Care Teams Telephone Worker Relationship Specialty Start Date End Date Asad Victor MD [address] [place] [address] PCP - General 10/07/22 documented as of this encounter
--- OUTSIDE RECORDS SUMMARY | 2024-11-06 10:08 | XMS_ITS | Encounter Summary ---
Author Organization Healthcare Address [address] [place] [address] Care Team Providers Care Needle Molder Name Role Phone Asad Victor MD Primary Care Provider + [phone] Reason for Visit * Reason Comments Post-op Problem Wound Check * Auth/Cert (Routine) Specialty Diagnoses / Procedures Referred By Contac t Referred To Contact Diagnoses Wound infection Post-op Vasc Sx wounds - sx on 10/17 at Nathaly Nowak MD [address] [address] Phone: tel: fax: [facility] Emergency Department [address] [place] [address] Phone: tel: Referral ID Status Reason Start Date Expiration Date Visits Re quested Visits Authorized [id number] 1 1 Encounter Details Date Type Department Care Team (Late st Contact Info) Description 11/06/2024 10:08 AM EDT - 11/06/2024 11:38 AM EDT Surgery [facility] OPERATING ROOM [address] [place] [address] Nathaly Nowak MD [id number] [place] [address] Left groin exploration and washout, [...] time in the past 12 m [facility], were you homeless or living in a [...] drink first t dino in the morning (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 0 10/18/2021 CAGE Questionnaire Score 0 022 Utilities Answer Date Recorded In the past 12 months has [employer], gas, oil, or water [employer] threatened to shut off services in your [...] Carmona with any questions or concerns at [phone]. It is important that you get your [...] Note Bev Borja 64 y.o. male CSN: [id number] Admission: 11/05/2024 9:45 PM Primary Problem: Wound infection Primary Analysis Engineer: Primary Caregiver: Self Assistance Available at [...] 30 days Follow-up: [facility] [address] [facility] [address] Go to Infusion Clinic. Please arrive at [address] [facility] [address] Go to Wound care clinic. First appointment is 1:10 pm. Please call [phone] with scheduling concerns. Discharge Transportation: Transportation Anticipated: medical transport Transportation Home at Discharge: Medical Transport Follow Up Transport: Transportation Needed to Follow up Appoinments: Medical Transport Additional Comments: Patient discharging home. No other SW needs identified. Mariia Monterroso MISSING PERSONS INVESTIGATOR * Discharge Summary - Melecio Echevarria DO - 11/14/2024 12:46 PM EDT Hospitalization Admit Date/Time: 11/05/2024 9:45 PM Admitting Attending: Nathaly Nowak Discharge Date: 11/14/2024 Discharge Attending Physician: Nathaly Nowak MD PCP name and Address: Asad Victor MD (Inactive) [address] [place] [address] / [place] [address] Referring provider name and address: Wade Cowart, DO [address] [place] [address] Chief Concern, Brief History of Present Illness, and Hospital Course Mr. Borja is a 64 y/o male that presented to [facility] on 11/06/2024 for surgical wound infection [...] Your Medications These [facility] Infusion Services - GLENDA Solorzano - [address], [place] [address] ertapenem injection micafungin injection Discharge Diagnosis Medical [...] [facility] 11/26/2024 2:30 PM [facility] 2 [facility] 11/26/2024 3:20 PM [facility] Schuster [facility] 11/29/2024 2:30 PM Oscar Appiah [...] y/o male that presented to [facility] on 11/06/2024 for surgical wound infection [...] portions of the procedure(s) and immediately available [facility] services the entire duration. See resident note for details. * Progress Notes - Mariia Monterroso - 11/13/2024 1:57 PM EDT Case Management Adult Progress Note Bev Borja 64 y.o. male CSN: [id number] Admission: 11/05/2024 9:45 PM Primary Problem: Wound infection Wound vac to be delivered today by at bedside. SW sent referral/orders to [facility] wound care center (fax [phone]) and infusion clinic (fax [phone]). Plan to discharge tomorrow. SW will continue to follow. Mariia Monterroso MISSING PERSONS INVESTIGATOR * Progress Notes - Bianca Knight PharmD - 11/13/2024 12:55 PM EDT Vancomycin therapy has been stopped per ID recommendation. Pharmacist will sign off from dosing and monitoring vancomycin. Please re- consult a pharmacist if more vancomycin is indicated. Bianca Knight PharmD, [facility] * Progress Notes - Ailin Levy [...] Lumen PICC Antimicrobial Regimen: IV Ertapenem 1g [id number] start date:11/06/2024 Projected End date:12/18/2024 IV Micafungin 150mg [id number] Start date: 11/12/2024 Projected End Date: 12/24/2024 [...] OPAT Team Attn: Dr Kraus Fax #: [phone] Appointments: (Dr Appiah 08/02/2024 at 2.30pm) at: [facility]: [address] [place] [address] (Select Option 3 for IV Antibiotic / PICC line related issues) For questions regarding OPAT prior to discharge, reach out to the OPAT team via [employer] Secure Chat (Group: OPAT Referral Team). For all questions regarding OPAT after discharge should be directed to the OPAT Team at (Select Option 3 for IV Antibiotics/PICC Issues) between 8am-5pm. After 5 pm, or during weekends/ holidays, please call the paging round corner cutter operator at to reach the on-call ID [...] from the original note were not included. [facility] Department of Surgery Division of Vascular Surgery Surgery Progress Note 11/13/24 Bev Borja Subjective Subjective: HPI 64yoM PMHx COPD, T2DM, HLD, HTN, RLS, CAD s/p PCI (on Xarelto) s/p pacemaker c/b left SANDIP pseudoaneurysm s/p thrombin injection 09/21/24, CLI s/p left femoral endarterectomy with EIA/NOCTURNIST stenting 10/17/24, who presented to [facility] 11/05/2024 with wound infection. 11/06/24: [...] 09/21/24, CLI s/p left femoral endarterectomy with EIA/NOCTURNIST stenting 10/17/24, who presented to [facility] 11/05/2024 with wound infection. POD [...] the findings. Cardiac Device Check - PRE-OR [facility] EP-Device Clinic: Pre-operative CIED Report Assessment and Sara-Procedural Reommendations: Name: Bev Borja Date: 10/17/2024 : 1960 Age: 64 y.o. 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 Lead integrity test [...] recommendations. Supporting reports can be found in [employer] media file. Micro: Susceptibility data from last [...] Units Date/Time Tissue Culture and Gram Stain [[id number]] (Abnormal) (Susceptibility) Collected: 11/06/24 1134 Order Status: Completed Specimen: Tissue from Other (specify site) Updated: 11/12/24 1334 Culture Moderate Growth 2+ Enterobacter cloacae complex Comment: This isolate has been identified using the FDA Approved Inkling Systemsyper CA System The organism value for this result has been updated. These results have been appended to the previously preliminary verified report. Edited result: Previously reported as Gram Negative Jesus on 11/07/2024 at 1434 EDT. 2+ Streptococcus mitis/oralis group Comment: This isolate has been identified using the FDA Approved MALDI batteriiyper CA System The organism value for this result has been updated. These results have been appended to the previously preliminary verified report. 2+ Pasteurella stomatis Comment: This result was determined by MALDI tof mass spectrometry using the [employer] database and is for research use only. [...] stewardship team. Comprehensive GI Panel by PCR [[id number]] (Normal) Collected: 11/12/24 0950 Order Status: Completed [...] if clinically indicated. Clostridiodes (Clostridium) difficile PCR [[id number]] (Normal) Collected: 11/12/24 0950 Order Status: Completed [...] high complexity clinical laboratory testing. 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 These results have been appended to the previously preliminary verified report. Edited result: Previously reported as Yeast on 11/11/2024 at 1317 EDT. ISIDRO No fungal elements seen Additional Susceptibilities and/or Identification [[id number]] Collected: 11/11/24 1240 Order Status: Completed Specimen: Tissue from Wound (specify site): Additional Susceptibilities and/or Identification [[id number]] Collected: 11/11/24 1238 Order Status: Completed Specimen: Tissue from Wound (specify site): Additional Susceptibilities and/or Identification [[id number]] Collected: 11/11/24 1237 Order Status: Completed Specimen: Tissue from Wound (specify site): AFB Culture, Non Respiratory Source and Acid Fast Stain [[id number]] Collected: 11/06/24 1134 Order Status: Completed Specimen: Tissue from Other (specify site) Updated: 11/11/24 0938 AFB Culture No Mycobacterial Growth <1 Week Acid Fast Stain No acid fast bacilli seen Blood Culture (Aerobic/Anaerobet Set) [[id number]] Collected: 11/06/24106 Order Status: Completed Specimen: Blood from AC, Left Updated: 11/11/24 0301 Culture No growth at day 5 Blood Culture (Aerobic/Anaerobet Set) [[id number]] Collected: 11/06/24106 Order Status: Completed Specimen: Blood [...] to stay a facility, plan [facility] daily IV abx. Plan [...] mg 1,000 mg Oral q6h [facility] Anthony Reyes MD 1,000 mg at 11/12/24 [...] Prevent or Manage Pain Flowsheets (Taken 11/11/2024 9396 by Jonathan Vale RN) Sensory Stimulation Regulation: care clustered lighting decreased quiet environment promoted Medication Review/Management: medications reviewed * Consults - Anabel Ovalle RD - 11/12/2024 9:59 AM EDT Adult Nutrition Evaluation Note Bev Borja 64 y.o. male CSN: [id number] Room/Bed 682/682B Nutrition evaluation type: assessment Reason for evaluation: LOS Hospital course: 64 y.o. male with PMHx significant for COPD, CAD s/p PCI (on Xarelto) s/p pacemaker c/b left SANDIP pseudoaneurysm s/p thrombin injection 09/21/24, chronic limb ischemia s/p left femoralendarterectomy with external iliac/common femoral artery stenting 10/17/24, T2DM, HLD, HTN, RLS who presented to the [facility] on 11/05/2024 with problems with [...] (194 lb 3.6 oz) BMI (Calculated): 30.41 [place] Body Weight (kg): 67.3 Percent [place] Body Weight: 131 Adjusted Body Weight (kg): [...] oz) Estimated Needs: Kcal/ K-30 Kcal Provided: 5056-8277 Kcal Needs Based On: Adjusted weight Gm Protein/ Kg : 1.2-1.5 Protein Provided: 87-108 Protein Needs Based On: Adjusted weight Metabolic Cart Study Results: Current Nutrition Intake: Diet Order: Adult Diet Diet Texture: Regular Adult Carbohydrate Restriction: Consistent CHO 1 (6478-5754 Jatinder, 65 g/meal) Percent Meals Eaten (%): [...] ENDARTERECTOMY N/A 2017 Endarterectomy Carotid Artery from [employer] CORONARY ANGIOPLASTY Left Coronary Angiography With Concomitant Left Heart Catheterization from [employer] CORONARY ARTERY BYPASS GRAFT N/A 2018 3V ELBOW SURGERY Right ENDARTERECTOMY Left 10/17/2024 common/SFA/Profunda thromboendarterectomy, EIA/NOCTURNIST stent HERNIA REPAIR KNEE ARTHROSCOPY Left VASCULAR SURGERY Left 09/21/2024 NOCTURNIST pseudoaneurym injection [3] Social History Tobacco Use [...] from the original note were not included. [facility] Department of Surgery Division of Vascular Surgery Surgery Progress Note 11/12/24 Bev Perez Cristoferkeo Subjective Subjective: HPI 64yoM PMHx COPD, T2DM, HLD, HTN, RLS, CAD s/p PCI (on Xarelto) s/p pacemaker c/b left SANDIP pseudoaneurysm s/p thrombin injection 09/21/24, CLI s/p left femoral endarterectomy with EIA/NOCTURNIST stenting 10/17/24, who presented to [facility] 11/05/2024 with wound infection. 11/06/24: [...] 09/21/24, CLI s/p left femoral endarterectomy with EIA/NOCTURNIST stenting 10/17/24, who presented to [facility] 11/05/2024 with wound infection. POD [...] the findings. Cardiac Device Check - PRE-OR [facility] EP-Device Clinic: Pre-operative CIED Report Assessment and Sara-Procedural Reommendations: Name: Bev Borja Date: 10/17/2024 : 1960 Age: 64 y.o. 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 Lead integrity test [...] recommendations. Supporting reports can be found in [employer] media file. Micro: Susceptibility data from last [...] Units Date/Time Tissue Culture and Gram Stain [[id number]] (Abnormal) (Susceptibility) Collected: 11/06/24 1134 Order Status: Completed Specimen: Tissue from Other (specify site) Updated: 11/12/24 1334 Culture Moderate Growth 2+ Enterobacter cloacae complex Comment: This isolate has been identified using the FDA Approved Tr[employer] CA System The organism value for this result has been updated. These results have been appended to the previously preliminary verified report. Edited result: Previously reported as Gram Negative Jesus on 11/07/2024 at 1434 EDT. 2+ Streptococcus mitis/oralis group Comment: This isolate has been identified using the FDA Approved Tr[employer]imer CA System The organism value for this result has been updated. These results have been appended to the previously preliminary verified report. 2+ Pasteurella stomatis Comment: This result was determined by MALDI tof mass spectrometry using the [employer] database and is for research use only. [...] stewardship team. Comprehensive GI Panel by PCR [[id number]] (Normal) Collected: 11/12/24 0950 Order Status: Completed [...] if clinically indicated. Clostridiodes (Clostridium) difficile PCR [[id number]] (Normal) Collected: 11/12/24 0950 Order Status: Completed [...] high complexity clinical laboratory testing. 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 These results have been appended to the previously preliminary verified report. Edited result: Previously reported as Yeast on 11/11/2024 at 1317 EDT. ISIDRO No fungal elements seen Additional Susceptibilities and/or Identification [[id number]] Collected: 11/11/24 1240 Order Status: Completed Specimen: Tissue from Wound (specify site): Additional Susceptibilities and/or Identification [[id number]] Collected: 11/11/24 1238 Order Status: Completed Specimen: Tissue from Wound (specify site): Additional Susceptibilities and/or Identification [[id number]] Collected: 11/11/24 1237 Order Status: Completed Specimen: Tissue from Wound (specify site): AFB Culture, Non Respiratory Source and Acid Fast Stain [[id number]] Collected: 11/06/24 1134 Order Status: Completed Specimen: Tissue from Other (specify site) Updated: 11/11/24 0938 AFB Culture No Mycobacterial Growth <1 Week Acid Fast Stain No acid fast bacilli seen Blood Culture (Aerobic/Anaerobet Set) [[id number]] Collected: 11/06/24106 Order Status: Completed Specimen: Blood from AC, Left Updated: 11/11/24 0301 Culture No growth at day 5 Blood Culture (Aerobic/Anaerobet Set) [[id number]] Collected: 11/06/24106 Order Status: Completed Specimen: Blood [...] OSH. On 11/06, pt went to the [facility] vascular surgery for left groin exploration [...] want to stay a facility, plan for [facility] daily IV abx. Plan for [...] mg 1,000 mg Oral q6h [facility] Anthony Reyes MD 1,000 mg at 11/12/24 1356 aspirin chewable tablet 81 mg 81 mg Oral Daily Reid Daniels MD 81 mg at 11/12/24 0938 cefepime (Maxipime) 2 g in sodium chloride 0.9% 100 mL IVPB (vial adapter required) 2 g Xmacyxizsvxn2g Reid Daniels MD 36.7 mL/hr at 11/12/24 [...] PM Anthony Reyes MD 0.4 mg at [id number] Vancomycin HCl in NaCl (Vancocin) IVPB 1,000 [...] send him home on micafungin as Rare Beverly Sana parapsilosis grew and we do not [...] Effective Oxygenation and Ventilation 11/11/20242347 by Jonathan Vael RN Outcome: Ongoing, Progressing 11/11/20242336 by Jonathan [...] portions of the procedure(s) and immediately available [facility] services the entire duration. See resident note for details. * Progress Notes - Mariia Monterroso - 11/11/2024 1:10 PM EDT Case Management Adult Progress Note Bev Borja 64 y.o. male CSN: [id number] Admission: 11/05/2024 9:45 PM Primary Problem: Wound infection Patient refusing inpatient placement for IV abx. [facility] infusion clinic can provide treatment. Face sheet, IV abx orders, and order for PICC care/labs/dressing changes need to be faxed to [phone]. Voicemail left with wound care clinic. Wound vac approved per , delivery pending. Crysll continue to follow. Mariia Monterroso MISSING PERSONS INVESTIGATOR * Progress Notes - Dotty Sethi [...] the findings. Cardiac Device Check - PRE-OR [facility] EP-Device Clinic: Pre-operative CIED Report Assessment and Sara-Procedural Reommendations: Name: Bev Borja Date: 10/17/2024 : 1960 Age: 64 y.o. 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 Lead integrity test [...] recommendations. Supporting reports can be found in [employer] media file. Micro: Susceptibility data from last [...] Non Respiratory Source and Acid Fast Stain [[id number]] Collected: 11/06/24 1134 Order Status: Completed Specimen: Tissue from Other (specify site) Updated: 11/11/24 0938 AFB Culture No Mycobacterial Growth <1 Week Acid Fast Stain No acid fast bacilli seen Blood Culture (Aerobic/Anaerobet Set) [[id number]] Collected: 11/06/24106 Order Status: Completed Specimen: Blood from AC, Left Updated: 11/11/24 0301 Culture No growth at day 5 Blood Culture (Aerobic/Anaerobet Set) [[id number]] Collected: 11/06/24 010 Order Status: Completed Specimen: Blood from Hand, Right Updated: 11/11/24 0249 Culture No growth at day 5 Anaerobic Culture [[id number]] Collected: 11/06/24 1128 Order Status: Completed Specimen: Swab from Other (specify site) Updated: 11/10/24 1441 Culture No growth at day 4 Routine Culture and Gram Stain [[id number]] Collected: 11/06/24 1128 Order Status: Completed Specimen: Swab from Other (specify site) Updated: 11/10/24 1124 Culture No growth at day 4 Gram Stain Result No organisms seen No polymorphonuclear leukocytes seen Anaerobic Culture [[id number]] (Abnormal) Collected: 11/06/24 112 Order Status: Completed Specimen: Swab from Other (specify site) Updated: 11/10/24 0718 Culture No anaerobes isolated Mixed skin clifton Comment: The organism value for this result has been updated. These results have been appended to the previously preliminary verified report. Narrative: Mixed Skin Cl[place] includes Streptococcus mitis/oralis group and Staphylococcus Pseudintermedius Anaerobic Culture [[id number]] (Abnormal) Collected: 11/06/24 1134 Order Status: Completed [...] tablet 81 mg 81 mg Oral Daily Redi Daniesl MD 81 mg at 11/11/24 0825 cefepime (Maxipime) 2 g in sodium chloride 0.9% 100 mL IVPB (vial adapter required) 2 g [id number] Reid Daniels MD 36.7 mL/hr at 11/11/24 [...] 4 mg 4 mg Oral q6h PRN Anthoyn Reyes MD Or ondansetron (Zofran) injection 4 mg 4 mg Intravenous q6h PRN Anthony Reyes MD Or ondansetron (Zofran) 4 MG/5ML solution 4 mg 4 mg Oral q6h PRN Anhtony Reyes MD oxyCODONE (Roxicodone) immediate release tablet [...] PM Anthony Reyes MD 0.4 mg at [id number] Vancomycin HCl in NaCl (Vancocin) IVPB 1,000 [...] from the original note were not included. [facility] Department of Surgery Division of Vascular Surgery Surgery Progress Note 11/11/24 Bev Borja Subjective Subjective: HPI 64yoM PMHx COPD, T2DM, HLD, HTN, RLS, CAD s/p PCI (on Xarelto) s/p pacemaker c/b left SANDIP pseudoaneurysm s/p thrombin injection 09/21/24, CLI s/p left femoral endarterectomy with EIA/NOCTURNIST stenting 10/17/24, who presented to [facility] 11/05/2024 with wound infection. 11/06/24: [...] 09/21/24, CLI s/p left femoral endarterectomy with EIA/NOCTURNIST stenting 10/17/24, who presented to [facility] 11/05/2024 with wound infection. POD [...] to follow, Submitted by: Kalpesh Lord PharmD, [facility] 11/10/2024 12:45 PM * Care Plan [...] 09/21/24, CLI s/p left femoral endarterectomy with EIA/NOCTURNIST stenting 10/17/24, who presented to [facility] 11/05/2024 with wound infection. 11/06/24: [...] 09/21/24, CLI s/p left femoral endarterectomy with EIA/NOCTURNIST stenting 10/17/24, who presented to [facility] 11/05/2024 with wound infection. 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 11/06/24: [...] 09/21/24, CLI s/p left femoral endarterectomy with EIA/NOCTURNIST stenting 10/17/24, who presented to [facility] 11/05/2024 with wound infection. POD [...] Care [place] M4 student [facility] Cosigned by Nathaly Nowak MD at 11/11/2024 [...] PT session. Patient reports he went to [facility] 12th floor via w/c yesterday [...] Mobility: Ambulatory- community (was utilizing scooter at [facility] since discharge) Mobility Cloud: Independent gait with device History of Falls: [...] Mobility Bed Mobility Exam: Scooting/Bridging Level of Cloud: Modified independence Bed Mobility Exam: Supine to Sit Level of Cloud: Modified Cloud Transfers Transfer Exam: Sit to stand Level of Cloud: Modified independence Assistive Device: Rollator Transfer Exam: Stand to Sit Level of Cloud: Modified independence Assistive Device: Rollator Ambulation Device: [...] Mobility Ambulatory- community (was utilizing scooter at [facility] since discharge) Mobility Cloud Independent gait with device History of Falls [...] distal to knee) BED MOBILITY Level of Cloud Physical/Non-physical Assist Adaptive Equipment Utilized Scooting/ Bridging Modified independence Supine to Sit Modified Cloud TRANSFERS Level of Cloud Physical/Non-physical Assist Adaptive Equipment Utilized Sit to Stand Modified independence Rollator Stand to sit Modified independence Rollator Toilet Transfer Modified independence Grab bar FUNCTIONAL MOBILITY Ambulation Modified independent 200ft x2 with seated rest break between bouts; RPE 5-7/10. Cues forsafety with rollator brakes. Rollator Comments BALANCE Postural Appearance Posture: Within Functional Limits Level of Cloud Balance Support Static Sit Independent Feet supported Dynamic Sit Independent Feet supported Static Stand Independent Right upper extremity support, Left upper extremity support (via rollator) Dynamic Stand Independent Right upper extremity support, Left upper extremity support (via rollator) STANDARDIZED ASSESSMENTS [facility] 6-Click Daily Activities Help from Other: Don/Doff Regular Lower Body Clothings: None Help From Other: Bathing: None Help From Other: Toileting: None Help From Other: Don/Doff Upper Body Clothings: None Help From Other: Grooming: None Help From Other: Eating Meals: None [facility] 6 Click - Daily Activities Score: [...] needed areas of treatment space. Level of Cloud Interventions Grooming Modified independent Standing sinkside Pt [...] independence encouraged Taken 11/08/2024 1200 by Brigitte Catsellon RN Activity Management: activity encouraged Taken 11/07/2024 [...] Note Bev Borja 64 y.o. male CSN: [id number] Admission: 11/05/2024 9:45 PM Primary Problem: Wound [...] follow and assist as needed. Mariia Monterroso MISSING PERSONS INVESTIGATOR * Progress Notes - Bianca Knight [...] to follow, Submitted by: Bianca Knight, ElizabethD, [facility] 11/08/2024 11:15 AM * Progress Notes - Melecio Echevarria DO - 11/08/2024 7:18 AM EDT Images from the original note were not included. [facility] Department of Surgery Division of Vascular Surgery Surgery Progress Note 11/08/24 Bev Borja Subjective Subjective: HPI 64yoM PMHx COPD, T2DM, HLD, HTN, RLS, CAD s/p PCI (on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 OF CARE TE ST DOCKED DEVICE UNSOLICITED RESULTS Final Result Performing Organization Address City/State/[facility] Co de Phone Number [facility] [address] [place] [address] * (ABNORMAL) POCT glucose meter (11/12/2024 5:08 PM EDT) [facility] POCT Glucose 157(H) 74 - 99 [...] 11/12/2024 5:10 PM EDT [facility] Invasive Physician ID Wade Feliciano 5:10 PM EDT HEALTHCARE LAB Device ID [id number] 11/12/2024 5:10 PM EDT [facility] Specimen Type POC Capillary 11/12/2024 5:10 PM EDT HEALTHCARE LAB Blood Capillary blood specimen / Unknown 11/12/2024 5:08 PM EDT 11/12/2024 5:10 PM EDT Nathaly Nowak MD LAB POINT OF CARE TE ST DOCKED DEVICE UNSOLICITED RESULTS Final Result Performing Organization Address City/[facility] Co de Phone Number HEALTHCARE LAB [address] [place] [address] * (ABNORMAL) POCT glucose meter (11/12/2024 12:36 PM EDT) [facility] POCT Glucose 224(H) 74 - 99 [...] Comment 11/12/2024 12:38 PM EDT HEALTHCARE LAB Invasive Physician ID Wade Feliciano Tobias 12:38 PM EDT HEALTHCARE LAB Device ID [id number] 11/12/2024 12:38 PM EDT HEALTHCARE LAB Specimen Type POC Capillary 11/12/2024 12:38 PM EDT [facility] Blood Capillary blood specimen / Unknown 11/12/2024 12:36 PM EDT 11/12/2024 12:38 PM EDT us Nathaly Nowak MD LAB POINT OF CARE TE ST DOCKED DEVICE UNSOLICITED RESULTS Final Result Performing Organization Address City/[facility]/ZIP Co de Phone Number HEALTHCARE LAB [address] [place] [address] * Clostridiodes (Clostridium) difficile PCR (11/12/2024 9:50 AM EDT) [facility] C difficile PCR toxin B gene DNA Result Not Detected Not Detected 11/12/2024 11:54 AM EDT [facility] Stool Rectum [...] MICROBIOLOGY - GENERAL ORDE LAM Final Result [facility] [address] [place] [address] * Comprehensive GI Panel by PCR (11/12/2024 [...] Detected Not Detected 11/12/2024 2:47 PM EDT [facility] Enteroaggregative E. coli (EAEC) PCR Result [...] ORDE RABLES Final Result Performing Organization Address [facility]/ZIP Co de Phone Number [facility] [address] [place] [address] * C-reactive protein (11/12/2024 9:48 AM EDT) [facility] CRP, Plasma <3.0 <=8.0 mg/L 11/12/2024 [...] ORDERABLES Final Resu lt Performing Organization Address [facility] Co de Phone Number [facility] [address] [place] [address] * (ABNORMAL) POCT glucose meter (11/12/2024 8:20 AM EDT) [facility] POCT Glucose 138(H) 74 - 99 [...] Comment 11/12/2024 8:21 AM EDT HEALTHCARE LAB Invasive Physician ID Wade Feliciano 8:21 AM EDT HEALTHCARE LAB Device ID [id number] 11/12/2024 8:21 AM EDT HEALTHCARE LAB Specimen Type POC Capillary 11/12/2024 8:21 AM EDT HEALTHCARE LAB Blood Capillary blood specimen / Unknown 11/12/2024 8:20 AM EDT 11/12/2024 8:21 AM EDT Nathaly Nowak MD LAB POINT OF CARE TE ST DOCKED DEVICE UNSOLICITED RESULTS Final Result Performing Organization Address [facility] de Phone Number HEALTHCARE LAB [address] [place] [address] * (ABNORMAL) POCT glucose meter (11/11/2024 8:18 PM EDT) [facility] POCT Glucose 248(H) 74 - 99 [...] Comment 11/11/2024 8:20 PM EDT HEALTHCARE LAB Invasive Physician ID Nelda Gerber 11/12/19 8:20 PM EDT HEALTHCARE LAB Device ID [id number] 11/11/2024 8:20 PM EDT [facility] Specimen Type POC Capillary 11/11/2024 8:20 PM EDT [facility] Blood Capillary blood specimen / Unknown 11/11/2024 8:18 PM EDT 11/11/2024 8:20 PM EDT Nathaly Nowak MD LAB POINT OF CARE TE ST DOCKED DEVICE UNSOLICITED RESULTS Final Result Performing Organization Address City/[facility] Co de Phone Number [facility] [address] [place] [address] * (ABNORMAL) POCT glucose meter (11/11/2024 5:59 PM EDT) [facility] POCT Glucose 147(H) 74 - 99 [...] Comment 11/11/2024 6:01 PM EDT HEALTHCARE LAB Invasive Physician ID Wade Feliciano 6:01 PM EDT HEALTHCARE LAB Device ID [id number] 11/11/2024 6:01 PM EDT HEALTHCARE LAB Specimen Type POC Capillary 11/11/2024 6:01 PM EDT HEALTHCARE LAB Blood Capillary blood specimen / Unknown 11/11/2024 5:59 PM EDT 11/11/2024 6:01 PM EDT Nathaly Nowak MD LAB POINT OF CARE TE ST DOCKED DEVICE UNSOLICITED RESULTS Final Result Performing Organization Address City/[facility] Co de Phone Number [facility] [address] [place] [address] * POCT glucose meter (11/11/2024 5:20 PM EDT) [facility] POCT Glucose 84 74 - 99 [...] Comment 11/11/2024 5:22 PM EDT HEALTHCARE LAB Invasive Physician ID Wade Feliciano 5:22 PM EDT HEALTHCARE LAB Device ID [id number] 11/11/2024 5:22 PM EDT HEALTHCARE LAB Specimen Type POC Capillary 11/11/2024 5:22 PM EDT HEALTHCARE LAB Blood Capillary blood specimen / Unknown 11/11/2024 5:20 PM EDT 11/11/2024 5:22 PM EDT us Nathaly Nowak MD LAB POINT OF CARE TE ST DOCKED DEVICE UNSOLICITED RESULTS Final Result [facility] [address] [place] [address] * IA NEGATIVE PRESSURE WOUND THERAPY DME >50 SQ [...] 11/11/2024 12:10 PM EDT [facility] Invasive Physician ID Braden Wade Collado 12:10 PM EDT [facility] Device ID [id number] 11/11/2024 12:10 PM EDT [facility] Specimen Type POC Capillary 11/11/2024 12:10 PM EDT HEALTHCARE LAB Blood Capillary blood specimen / Unknown 11/11/2024 12:08 PM EDT 11/11/2024 12:10 PM EDT us Nathaly Nowak MD LAB POINT OF CARE TE ST DOCKED DEVICE UNSOLICITED RESULTS Final Result [facility]ARE LAB [address] [place] [address] * (ABNORMAL) POCT glucose meter (11/11/2024 9:08 [...] for testing. Comment 11/11/2024 9:09 AM EDT [facility] Invasive Physician ID Wade Feliciano Tobias 9:09 AM EDT [facility] Device ID [id number] 11/11/2024 9:09 AM EDT [facility] Specimen Type POC Capillary 11/11/2024 9:09 AM EDT [facility] Blood Capillary blood specimen / Unknown 11/11/2024 9:08 AM EDT 11/11/2024 9:09 AM EDT us Nathaly Nowak MD LAB POINT OF CARE TE ST DOCKED DEVICE UNSOLICITED RESULTS Final Result Performing Organization Address City/[facility]/ZIP Co de Phone Number [facility] [address] [place] [address] * POCT glucose meter (11/11/2024 8:27 AM EDT) Pathologist [facility] POCT Glucose 87 74 - 99 [...] 11/11/2024 8:28 AM EDT [facility] Invasive Physician ID Wade Feliciano 8:28 AM EDT HEALTHCARE LAB Device ID [id number] 11/11/2024 8:28 AM EDT HEALTHCARE LAB Specimen Type POC Capillary 11/11/2024 8:28 AM EDT HEALTHCARE LAB Blood Capillary blood specimen / Unknown 11/11/2024 8:27 AM EDT 11/11/2024 8:28 AM EDT us Nathaly Nowak MD LAB POINT OF CARE TE ST DOCKED DEVICE UNSOLICITED RESULTS Final Result HE[facility]CARE LAB [address] [place], [place] [id number] * (ABNORMAL) Basic Metabolic Panel, Plasma (11/11/2024 [...] Resu lt [facility] [address] [place] [address] * (ABNORMAL) CBC W/O Differential (11/11/2024 12:56 [...] ORDERABLES Final Resu lt Performing Organization Address City/[facility]/ZIP Co de Phone Number [facility] [address] [place] [address] * (ABNORMAL) POCT glucose meter (11/10/2024 8:25 [...] Comment 11/10/2024 8:28 PM EDT HEALTHCARE LAB Invasive Physician ID Nelda Gerber 11/11/19 8:28 PM EDT HEALTHCARE LAB Device ID [id number] 11/10/2024 8:28 PM EDT HEALTHCARE LAB Specimen Type POC Capillary 11/10/2024 8:28 PM EDT [facility] Blood Capillary blood specimen / Unknown 11/10/2024 8:25 PM EDT 11/10/2024 8:28 PM EDT us Nathaly Nowak MD LAB POINT OF CARE TE ST DOCKED DEVICE UNSOLICITED RESULTS Final Result Performing Organization Address City/[facility]/ZIP Co de Phone Number HEALTHCARE LAB [address] [place] [address] * (ABNORMAL) POCT glucose meter (11/10/2024 4:45 [...] 11/10/2024 4:47 PM EDT [facility] Invasive Physician ID Esperanza Parks 11/10/2024 4:47 PM EDT [facility] Device ID [id number] 11/10/2024 4:47 PM EDT [facility] Specimen Type POC Capillary 11/10/2024 4:47 PM EDT HEALTHCARE LAB Blood Capillary blood specimen / Unknown 11/10/2024 4:45 PM EDT 11/10/2024 4:47 PM EDT Nathaly Nowak MD LAB POINT OF CARE TE ST DOCKED DEVICE UNSOLICITED RESULTS Final Result Performing Organization Address City/State/[facility] Co de Phone Number [facility] [address] [place] [address] * (ABNORMAL) POCT glucose meter (11/10/2024 12:13 PM EDT) [facility] POCT Glucose 131(H) 74 - 99 [...] 11/10/2024 12:14 PM EDT [facility] Invasive Physician ID Esperanza Parks 11/10/2024 12:14 PM EDT [facility] Device ID [id number] 11/10/2024 12:14 PM EDT [facility] Specimen Type POC Capillary 11/10/2024 12:14 PM EDT [facility] Blood Capillary blood specimen / Unknown 11/10/2024 12:13 PM EDT 11/10/2024 12:14 PM EDT us Nathaly Nowak MD LAB POINT OF CARE TE ST DOCKED DEVICE UNSOLICITED RESULTS Final Result Performing Organization Address [facility]/ZIP Co de Phone Number [facility] [address] [place] [address] * Vancomycin, Peak, Plasma Please draw ~2 hours after 0800 dose of vancomycin finishes infusing. Consider obtaining level via peripheral stick. If peripheral stick is not feasible, please ensure that line is flushed well prior to drawing level. Than... (11/10/2024 10:56 AM EDT) [facility] Vancomycin, Peak, Plasma 23.8 20.0 - 40.0 ug/mL 11/10/2024 11:25 AM EDT [facility] Blood Venous blood specimen / Unknown Venipuncture / Unknown 11/10/2024 10:56 AM EDT 11/10/2024 11:00 AM EDT Narrative [facility] - 11/10/2024 11:25 AM EDT Therapeutic Peak level: 20-40ug/mL Supra-therapeutic Peak level: >40 ug/mL us Abigail Seay MD LAB BLOOD ORDERABLES Final Res ult Performing Organization Address [facility] de Phone Number [facility] [address] [place] [address] * (ABNORMAL) POCT glucose meter (11/10/2024 8:03 AM EDT) [facility] POCT Glucose 174(H) 74 - 99 mg/dL 11/10/2024 8:04 AM EDT [facility] Comment:Accuracy of a glucos e result [...] Comment 11/10/2024 8:04 AM EDT HEALTHCARE LAB Invasive Physician ID Pierre Parksn 11/10/2024 8:04 AM EDT HEALTHCARE LAB Device ID [id number] 11/10/2024 8:04 AM EDT HEALTHCARE LAB Specimen Type POC Capillary 11/10/2024 8:04 AM EDT [facility] Blood Capillary blood specimen / Unknown 11/10/2024 8:03 AM EDT 11/10/2024 8:04 AM EDT us Nathaly Nowak MD LAB POINT OF CARE TE ST DOCKED DEVICE UNSOLICITED RESULTS Final Result Performing Organization Address [facility] Co de Phone Number HEALTHCARE LAB [address] [place] [address] * Vancomycin, Trough, Plasma Please draw ~30 [...] ORDERABLES Final Res ult Performing Organization Address [facility]/ZIP Co de Phone Number [facility] [address] [place] [address] * (ABNORMAL) CBC and Differential (11/10/2024 12:31 [...] Resu lt [facility] [address] [place] [address] * (ABNORMAL) Comprehensive Metabolic Panel, Plasma (11/10/2024 [...] Resu lt [facility] [address] [place] [address] * (ABNORMAL) POCT glucose meter (11/09/2024 8:04 PM EDT) [facility] POCT Glucose 114(H) 74 - 99 [...] Comment 11/09/2024 8:06 PM EDT HEALTHCARE LAB Invasive Physician ID Maximiliano Hansen II 11/09/2024 8:06 PM EDT HEALTHCARE LAB Device ID [id number] 11/09/2024 8:06 PM EDT HEALTHCARE LAB Specimen Type POC Capillary 11/09/2024 8:06 PM EDT [facility] Blood Capillary blood specimen / Unknown 11/09/2024 8:04 PM EDT 11/09/2024 8:06 PM EDT Nathaly Nowak MD LAB POINT OF CARE TE ST DOCKED DEVICE UNSOLICITED RESULTS Final Result Performing Organization Address City/State/[facility] Co de Phone Number HEALTHCARE LAB [address] [place] [address] * (ABNORMAL) POCT glucose meter (11/09/2024 4:36 PM EDT) [facility] POCT Glucose 166(H) 74 - 99 [...] 11/09/2024 4:38 PM EDT [facility] Invasive Physician ID IanCrow bellamyary 11/09/2024 4:38 PM EDT [facility] Device ID [id number] 11/09/2024 4:38 PM EDT [facility] Specimen Type POC Capillary 11/09/2024 4:38 PM EDT [facility] Blood Capillary blood specimen / Unknown 11/09/2024 4:36 PM EDT 11/09/2024 4:38 PM EDT Nathaly Nowak MD LAB POINT OF CARE TE ST DOCKED DEVICE UNSOLICITED RESULTS Final Result [facility] [address] [place] [address] * PICC SINGLE LUMEN ([employer] LINK) (11/09/2024 1:11 PM EDT) Narrative Estefani Barraza RN - 11/09/2024 1:11 PM EDT Estefani Barraza RN 11/09/2024 1:12 PM Insert PICC line Date/Time: 11/09/2024 1:11 PM Performed by: Estefani Barraza RN Authorized by: Nathaly Nowak MD [place] Protocol: Verbal consent obtained?: Yes Written consent [...] selection rationale: Left pacemaker Catheter Lot #: 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[employer] Catheter placed: Single lumen Catheter size: 4 [...] Comment 11/09/2024 11:51 AM EDT HEALTHCARE LAB Invasive Physician ID Kristian Sosa 11/09/2024 11:51 AM EDT [facility] Device ID [id number] 11/09/2024 11:51 AM EDT [facility] Specimen Type POC Capillary 11/09/2024 11:51 AM EDT [facility] Blood Capillary blood specimen / Unknown 11/09/2024 11:50 AM EDT 11/09/2024 11:51 AM EDT Nathaly Nowak MD LAB POINT OF CARE TE ST DOCKED DEVICE UNSOLICITED RESULTS Final Result [facility] [address] [place] [address] * (ABNORMAL) POCT glucose meter (11/09/2024 8:14 [...] Comment 11/09/2024 8:15 AM EDT HEALTHCARE LAB Invasive Physician ID Kristian Sosa 11/09/2024 8:15 AM EDT HEALTHCARE LAB Device ID [id number] 11/09/2024 8:15 AM EDT HEALTHCARE LAB Specimen Type POC Capillary 11/09/2024 8:15 AM EDT HEALTHCARE LAB Blood Capillary blood specimen / Unknown 11/09/2024 8:14 AM EDT 11/09/2024 8:15 AM EDT us Nathaly Nowak MD LAB POINT OF CARE TE ST DOCKED DEVICE UNSOLICITED RESULTS Final Result Performing Organization Address City/State/[facility] Co de Phone Number HEALTHCARE LAB [address] [place] [address] * (ABNORMAL) CBC and Differential (11/09/2024 4:15 [...] AM EDT 11/09/2024 4:18 AM EDT Narrative [facility] - 11/09/2024 4:26 AM EDT Therapeutic decision making should be based on absolute values, rather than percentages. us Nathaly Nowak MD LAB BLOOD ORDERABLES Final Resu lt [facility] [address] [place] [address] * (ABNORMAL) Comprehensive Metabolic Panel, Plasma (11/09/2024 [...] Resu lt [facility] [address] [place] [address] * (ABNORMAL) POCT glucose meter (11/09/2024 3:30 AM EDT) POCT Glucose 160(H) 74 - 99 mg/dL 11/09/2024 3:31 AM EDT [facility] Comment:Accuracy of a glucos [...] Comment 11/09/2024 3:31 AM EDT HEALTHCARE LAB Invasive Physician ID Maximiliano Hansen II 11/09/2024 3:31 AM EDT HEALTHCARE LAB Device ID [id number] 11/09/2024 3:31 AM EDT HEALTHCARE LAB Specimen Type POC Capillary 11/09/2024 3:31 AM EDT HEALTHCARE LAB Blood Capillary blood specimen / Unknown 11/09/2024 3:30 AM EDT 11/09/2024 3:31 AM EDT Nathaly Nowak MD LAB POINT OF CARE TE ST DOCKED DEVICE UNSOLICITED RESULTS Final Result Performing Organization Address City/[facility]/ZIP Co de Phone Number HEALTHCARE LAB [address] [place] [address] * (ABNORMAL) POCT glucose meter (11/08/2024 7:21 [...] Comment 11/08/2024 7:22 PM EDT HEALTHCARE LAB Invasive Physician ID Maximiliano Hansen II 11/08/2024 7:22 PM EDT HEALTHCARE LAB Device ID [id number] 11/08/2024 7:22 PM EDT HEALTHCARE LAB Specimen Type POC Capillary 11/08/2024 7:22 PM EDT HEALTHCARE LAB Blood Capillary blood specimen / Unknown 11/08/2024 7:21 PM EDT 11/08/2024 7:22 PM EDT Nathaly Nowak MD LAB POINT OF CARE TE ST DOCKED DEVICE UNSOLICITED RESULTS Final Result Performing Organization Address City/[facility]/ZIP Co de Phone Number [facility]ARE LAB [address] [place] [address] * (ABNORMAL) POCT glucose meter (11/08/2024 5:12 PM EDT) [facility] POCT Glucose 178(H) 74 - 99 [...] Comment 11/08/2024 5:14 PM EDT HEALTHCARE LAB Invasive Physician ID Estefani Sheth 11/08/2024 5:14 PM EDT HEALTHCARE LAB Device ID [id number] 11/08/2024 5:14 PM EDT HEALTHCARE LAB Specimen Type POC Capillary 11/08/2024 5:14 PM EDT [facility] Blood Capillary blood specimen / Unknown 11/08/2024 5:12 PM EDT 11/08/2024 5:14 PM EDT Nathaly Nowak MD LAB POINT OF CARE TE ST DOCKED DEVICE UNSOLICITED RESULTS Final Result Performing Organization Address City/State/[facility] Co de Phone Number HEALTHCARE LAB [address] [place] [address] * (ABNORMAL) POCT glucose meter (11/08/2024 12:03 PM EDT) [facility] POCT Glucose 191(H) 74 - 99 [...] Comment 11/08/2024 12:05 PM EDT HEALTHCARE LAB Invasive Physician ID Estefani Sheth 11/08/2024 12:05 PM EDT HEALTHCARE LAB Device ID [id number] 11/08/2024 12:05 PM EDT HEALTHCARE LAB Specimen Type POC Capillary 11/08/2024 12:05 PM EDT [facility] Blood Capillary blood specimen / Unknown 11/08/2024 12:03 PM EDT 11/08/2024 12:05 PM EDT Result [facility] Nathaly Nowak MD LAB POINT OF CARE TE ST DOCKED DEVICE UNSOLICITED RESULTS Final Result Performing Organization Address [facility] de Phone Number [facility] [address] [place] [address] * Vancomycin, Peak, Plasma Please draw ~2 hours after 11/08 0600 dose of vancomycin finishes infusing.Consider obtaining level via peripheral stick. If peripheral stick is not feasible, please ensure that line is flushed well prior to drawing level.... (11/08/2024 9:24 AM EDT) [facility] Vancomycin, Peak, Plasma 29.1 20.0 - [...] ORDERABLES Final Resu lt Performing Organization Address [facility] de Phone Number [facility] [address] [place] [address] * (ABNORMAL) POCT glucose meter (11/08/2024 8:00 AM EDT) [facility] POCT Glucose 150(H) 74 - 99 mg/dL 11/08/2024 8:01 AM EDT [facility] Comment:Accuracy of a glucos [...] Comment 11/08/2024 8:01 AM EDT HEALTHCARE LAB Invasive Physician ID Estefani Sheth 11/08/2024 8:01 AM EDT HEALTHCARE LAB Device ID [id number] 11/08/2024 8:01 AM EDT HEALTHCARE LAB Specimen Type POC Capillary 11/08/2024 8:01 AM EDT HEALTHCARE LAB Blood Capillary blood specimen / Unknown 11/08/2024 8:00 AM EDT 11/08/2024 8:01 AM EDT us Nathaly Nowak MD LAB POINT OF CARE TE ST DOCKED DEVICE UNSOLICITED RESULTS Final Result [facility] [address] [place] [address] * (ABNORMAL) CBC and Differential (11/08/2024 4:39 [...] Resu lt [facility] [address] [place] [address] * (ABNORMAL) Comprehensive Metabolic Panel, Plasma (11/08/2024 [...] lt [facility] [address] [place] [address] * Vancomycin, Trough, Plasma Please draw ~30 minutes prior to dose due at 0600 on 11/08. Please do NOThold dose awaiting level to return. Consider obtaining level via peripheral stick. If peripheral stick is not feasible, please ensure that line is... (11/08/2024 4:39 AM EDT) Vancomycin, Trough, Plasma 18.7 10.0 - 20.0 ug/mL 11/08/2024 5:22 AM EDT [facility] Blood Venous blood specimen / Unknown Venipuncture / Unknown 11/08/2024 4:39 AM EDT 11/08/2024 4:43 AM EDT Narrative [facility] - 11/08/2024 5:22 AM EDT Therapeutic Trough level: 10-20ug/mL Supra-therapeutic Trough level: >20 ug/mL Nathaly Nowak MD LAB BLOOD ORDERABLES Final Resu lt Performing Organization Address City/[facility]/ZIP Co de Phone Number [facility] [address] [place] [address] * (ABNORMAL) POCT glucose meter (11/07/2024 7:26 PM EDT) Pathologist [facility] POCT Glucose 172(H) 74 - [...] Comment 11/07/2024 7:28 PM EDT HEALTHCARE LAB Invasive Physician ID Maximiliano Hansen II 11/07/2024 7:28 PM EDT HEALTHCARE LAB Device ID [id number] 11/07/2024 7:28 PM EDT [facility] Specimen Type POC Capillary 11/07/2024 7:28 PM EDT [facility] Blood Capillary blood specimen / Unknown 11/07/2024 7:26 PM EDT 11/07/2024 7:28 PM EDT Nathaly Nowak MD LAB POINT OF CARE TE ST DOCKED DEVICE UNSOLICITED RESULTS Final Result Performing Organization Address City/[facility]/ZIP Co de Phone Number [facility] [address] [place] [address] * (ABNORMAL) POCT glucose meter (11/07/2024 5:51 [...] 11/07/2024 5:52 PM EDT [facility] Invasive Physician ID Brigitte Castellon 11/07/2024 5:52 PM EDT [facility] Device ID [id number] 11/07/2024 5:52 PM EDT [facility] Specimen Type POC Capillary 11/07/2024 5:52 PM EDT [facility] Blood Capillary blood specimen / Unknown 11/07/2024 5:51 PM EDT 11/07/2024 5:52 PM EDT Nathaly Nowak MD LAB POINT OF CARE TE ST DOCKED DEVICE UNSOLICITED RESULTS Final Result Performing Organization Address City/[facility] Co de Phone Number [facility] [address] [place] [address] * (ABNORMAL) POCT glucose meter (11/07/2024 4:47 [...] 11/07/2024 4:48 PM EDT [facility] Invasive Physician ID Estefani Sheth 11/07/2024 4:48 PM EDT [facility] Device ID [id number] 11/07/2024 4:48 PM EDT [facility] Specimen Type POC Capillary 11/07/2024 4:48 PM EDT [facility] Blood Capillary blood specimen / Unknown 11/07/2024 4:47 PM EDT 11/07/2024 4:48 PM EDT us Nathaly Nowak MD LAB POINT OF CARE TE ST DOCKED DEVICE UNSOLICITED RESULTS Final Result Performing Organization Address City/[facility]/ZIP Co de Phone Number [facility] [address] [place] [address] * (ABNORMAL) POCT glucose meter (11/07/2024 12:22 PM EDT) Pathologist [facility] POCT Glucose 172(H) 74 - [...] Comment 11/07/2024 12:24 PM EDT [facility] Invasive Physician ID Estefani Sheth 11/07/2024 12:24 PM EDT [facility] Device ID [id number] 11/07/2024 12:24 PM EDT [facility] Specimen Type POC Capillary 11/07/2024 12:24 PM EDT [facility] Blood Capillary blood specimen / Unknown 11/07/2024 12:22 PM EDT 11/07/2024 12:24 PM EDT us Nathaly Nowak MD LAB POINT OF CARE TE ST DOCKED DEVICE UNSOLICITED RESULTS Final Result [facility] [address] [place] [address] * (ABNORMAL) CBC and Differential (11/07/2024 11:37 AM EDT) [facility] WBC Count 9.96 3.70 - 10.30 [...] AM EDT 11/07/2024 12:24 PM EDT Narrative [facility] - 11/07/2024 12:33 PM EDT Therapeutic decision making should be based on absolute values, rather than percentages. us Nathaly Nowak MD LAB BLOOD ORDERABLES Final Resu lt [facility] [address] [place] [address] * (ABNORMAL) Comprehensive Metabolic Panel, Plasma (11/07/2024 11:37 AM EDT) Glucose, Plasma 173(H) 74 - 99 mg/dL 11/07/2024 1:31 PM EDT [facility] BUN, Plasma 13 8 - 23 mg/dL 11/07/2024 1:31 PM EDT [facility] Creatinine, Plasma 0.92 0.70 - 1.20 mg/dL 11/07/2024 1:31 PM EDT [facility] BUN/Creatinine Ratio 11/07/2024 1:31 PM EDT [facility] [...] Resu lt [facility] [address] [place] [address] * Type and Screen (11/07/2024 11:37 AM [...] ORDERABLES F inal Result Performing Organization Address City/[facility]/ZIP Co de Phone Number BLOOD BANK [address] * (ABNORMAL) POCT glucose meter (11/07/2024 [...] Comment 11/07/2024 10:36 AM EDT [facility] Invasive Physician ID Joy Iraheta 11/07/2024 10:36 AM EDT [facility]ARE [facility] Device ID [id number] 11/07/2024 10:36 AM EDT [facility] Specimen Type POC Capillary 11/07/2024 10:36 AM EDT [facility] Blood Capillary blood specimen / Unknown 11/07/2024 10:34 AM EDT 11/07/2024 10:36 AM EDT Nathaly Nowak MD LAB POINT OF CARE TE ST DOCKED DEVICE UNSOLICITED RESULTS Final Result [facility] [address] [place] [address] * (ABNORMAL) POCT glucose meter (11/07/2024 9:34 [...] Comment 11/07/2024 9:36 AM EDT [facility] Invasive Physician ID Brigitte Castellon 11/07/2024 9:36 AM EDT [facility] Device ID [id number] 11/07/2024 9:36 AM EDT [facility] Specimen Type POC Capillary 11/07/2024 9:36 AM EDT [facility] Blood Capillary blood specimen / Unknown 11/07/2024 9:34 AM EDT 11/07/2024 9:36 AM EDT Nathaly Nowak MD LAB POINT OF CARE TE ST DOCKED DEVICE UNSOLICITED RESULTS Final Result Performing Organization Address City/State/[facility] Co de Phone Number [facility] [address] [place] [address] * (ABNORMAL) POCT glucose meter (11/07/2024 8:20 [...] Comment 11/07/2024 8:22 AM EDT [facility] Invasive Physician ID Estefani Sheth 11/07/2024 8:22 AM EDT [facility] Device ID [id number] 11/07/2024 8:22 AM EDT [facility] Specimen Type POC Capillary 11/07/2024 8:22 AM EDT [facility] Blood Capillary blood specimen / Unknown 11/07/2024 8:20 AM EDT 11/07/2024 8:22 AM EDT Nathaly Nowak MD LAB POINT OF CARE TE ST DOCKED DEVICE UNSOLICITED RESULTS Final Result Performing Organization Address City/[facility] de Phone Number [facility] [address] [place] [address] * (ABNORMAL) POCT glucose meter (11/07/2024 7:21 AM EDT) Pathologist [facility] POCT Glucose 151(H) 74 - [...] Comment 11/07/2024 7:22 AM EDT [facility] Invasive Physician ID Brigitte Castellon 11/07/2024 7:22 AM EDT [facility] Device ID [id number] 11/07/2024 7:22 AM EDT [facility] Specimen Type POC Capillary 11/07/2024 7:22 AM EDT [facility] Blood Capillary blood specimen / Unknown 11/07/2024 7:21 AM EDT 11/07/2024 7:22 AM EDT Nathaly Nowak MD LAB POINT OF CARE TE ST DOCKED DEVICE UNSOLICITED RESULTS Final Result Performing Organization Address City/[facility] Co de Phone Number [facility] [address] [place] [address] * (ABNORMAL) POCT glucose meter (11/07/2024 6:25 AM EDT) Pathologist [facility] POCT Glucose 144(H) 74 - [...] Comment 11/07/2024 6:27 AM EDT [facility] Invasive Physician ID Nelda Gerber 11/08/19 6:27 AM EDT [facility] LAB Device ID [id number] 11/07/2024 6:27 AM EDT [facility] Specimen Type POC Capillary 11/07/2024 6:27 AM EDT [facility] Blood Capillary blood specimen / Unknown 11/07/2024 6:25 AM EDT 11/07/2024 6:27 AM EDT Nathaly Nowak MD LAB POINT OF CARE TE ST DOCKED DEVICE UNSOLICITED RESULTS Final Result Performing Organization Address [facility] Co de Phone Number [facility] [address] [place] [address] * (ABNORMAL) POCT glucose meter (11/07/2024 5:03 [...] Comment 11/07/2024 5:08 AM EDT [facility] Invasive Physician ID Nelda Gerber 11/08/19 5:08 AM EDT [facility] Device ID [id number] 11/07/2024 5:08 AM EDT [facility] Specimen Type POC Capillary 11/07/2024 5:08 AM EDT [facility] Blood Capillary blood specimen / Unknown 11/07/2024 5:03 AM EDT 11/07/2024 5:08 AM EDT us Nathaly Nowak MD LAB POINT OF CARE TE ST DOCKED DEVICE UNSOLICITED RESULTS Final Result Performing Organization Address City/[facility]/ZIP Co de Phone Number [facility] [address] [place] [address] * (ABNORMAL) POCT glucose meter (11/07/2024 4:16 AM EDT) [facility] POCT Glucose 142(H) 74 - 99 [...] Comment 11/07/2024 4:18 AM EDT [facility] Invasive Physician ID Nelda Gerber 11/08/19 4:18 AM EDT [facility] Device ID [id number] 11/07/2024 4:18 AM EDT [facility] Specimen Type POC Capillary 11/07/2024 4:18 AM EDT [facility] Blood Capillary blood specimen / Unknown 11/07/2024 4:16 AM EDT 11/07/2024 4:18 AM EDT Nathaly Nowak MD LAB POINT OF CARE TE ST DOCKED DEVICE UNSOLICITED RESULTS Final Result [facility] [address] [place] [address] * (ABNORMAL) POCT glucose meter (11/07/2024 3:21 AM EDT) [facility] POCT Glucose 141(H) 74 - 99 [...] 11/07/2024 3:23 AM EDT [facility] Invasive Physician ID Nelda Gerber 11/08/19 3:23 AM EDT [facility] Device ID [id number] 11/07/2024 3:23 AM EDT [facility] Specimen Type POC Capillary 11/07/2024 3:23 AM EDT [facility] Blood Capillary blood specimen / Unknown 11/07/2024 3:21 AM EDT 11/07/2024 3:23 AM EDT Nathaly Nowak MD LAB POINT OF CARE TE ST DOCKED DEVICE UNSOLICITED RESULTS Final Result Performing Organization Address City/[facility] Co de Phone Number [facility] [address] [place] [address] * (ABNORMAL) POCT glucose meter (11/07/2024 2:10 [...] Comment 11/07/2024 2:12 AM EDT [facility] Invasive Physician ID Nelda Gerber 11/08/19 2:12 AM EDT [facility] Device ID [id number] 11/07/2024 2:12 AM EDT [facility]ALTH[facility] Specimen Type POC Capillary 11/07/2024 2:12 AM EDT [facility] Blood Capillary blood specimen / Unknown 11/07/2024 2:10 AM EDT 11/07/2024 2:12 AM EDT Nathaly Nowak MD LAB POINT OF CARE TE ST DOCKED DEVICE UNSOLICITED RESULTS Final Result Performing Organization Address City/[facility]/ZIP Co de Phone Number [facility] [address] [place] [address] * (ABNORMAL) POCT glucose meter (11/07/2024 1:08 [...] Comment 11/07/2024 1:10 AM EDT [facility] Invasive Physician ID Nelda Gerber 11/08/19 1:10 AM EDT [facility] Device ID [id number] 11/07/2024 1:10 AM EDT [facility] Specimen Type POC Capillary 11/07/2024 1:10 AM EDT [facility] Blood Capillary blood specimen / Unknown 11/07/2024 1:08 AM EDT 11/07/2024 1:10 AM EDT us Nathaly Nowak MD LAB POINT OF CARE TE ST DOCKED DEVICE UNSOLICITED RESULTS Final Result Performing Organization Address City/State/[facility] Co de Phone Number [facility] [address] [place] [address] * (ABNORMAL) POCT glucose meter (11/07/2024 12:10 AM EDT) [facility] POCT Glucose 127(H) 74 - 99 mg/dL 11/07/2024 12:13 AM EDT [facility] Comment:Accuracy of a glucos e result [...] for testing. Comment 11/07/2024 12:13 AM EDT [facility] Invasive Physician ID Nelda Gerber 11/08/19 12:13 AM EDT [facility] Device ID [id number] 11/07/2024 12:13 AM EDT [facility] Specimen Type POC Capillary 11/07/2024 12:13 AM EDT [facility] Blood Capillary blood specimen / Unknown 11/07/2024 12:10 AM EDT 11/07/2024 12:13 AM EDT us Nathaly Nowak MD LAB POINT OF CARE TE ST DOCKED DEVICE UNSOLICITED RESULTS Final Result [facility] [address] [place] [address] * (ABNORMAL) POCT glucose meter (11/06/2024 11:14 [...] for testing. Comment 11/06/2024 11:16 PM EDT [facility] Invasive Physician ID Nelda Gerber 11/07/19 11:16 PM EDT [facility] Device ID [id number] 11/06/2024 11:16 PM EDT [facility] Specimen Type POC Capillary 11/06/2024 11:16 PM EDT [facility] Blood Capillary blood specimen / Unknown 11/06/2024 11:14 PM EDT 11/06/2024 11:16 PM EDT us Nathaly Nowak MD LAB POINT OF CARE TE ST DOCKED DEVICE UNSOLICITED RESULTS Final Result Performing Organization Address City/[facility]/ZIP Co de Phone Number [facility] [address] [place] [address] * (ABNORMAL) POCT glucose meter (11/06/2024 10:07 [...] Comment 11/06/2024 10:09 PM EDT [facility]ALTH[facility] Invasive Physician ID Nelda Gerber 11/07/19 10:09 PM EDT HEALTH[facility]ARE LAB Device ID [id number] 11/06/2024 10:09 PM EDT [facility] Specimen Type POC Capillary 11/06/2024 10:09 PM EDT [facility] Blood Capillary blood specimen / Unknown 11/06/2024 10:07 PM EDT 11/06/2024 10:09 PM EDT Nathaly Nowak MD LAB POINT OF CARE TE ST DOCKED DEVICE UNSOLICITED RESULTS Final Result Performing Organization Address City/[facility] Co de Phone Number [facility] [address] [place] [address] * (ABNORMAL) POCT glucose meter (11/06/2024 8:22 [...] Comment 11/06/2024 8:25 PM EDT [facility] Invasive Physician ID Nelda Gerber 11/07/19 8:25 PM EDT [facility]ALTH[facility] Device ID [id number] 11/06/2024 8:25 PM EDT [facility] Specimen Type POC Capillary 11/06/2024 8:25 PM EDT [facility] Blood Capillary blood specimen / Unknown 11/06/2024 8:22 PM EDT 11/06/2024 8:25 PM EDT Nathaly Nowak MD LAB POINT OF CARE TE ST DOCKED DEVICE UNSOLICITED RESULTS Final Result Performing Organization Address City/[facility]/ZIP Co de Phone Number [facility] [address] [place] [address] * (ABNORMAL) POCT glucose meter (11/06/2024 7:31 PM EDT) Pathologist [facility] POCT Glucose 359(H) 74 - 99 [...] Comment 11/06/2024 7:32 PM EDT [facility] Invasive Physician ID Nelda Gerber 11/07/19 7:32 PM EDT [facility]ALTH[facility] Device ID [id number] 11/06/2024 7:32 PM EDT [facility] Specimen Type POC Capillary 11/06/2024 7:32 PM EDT [facility] Blood Capillary blood specimen / Unknown 11/06/2024 7:31 PM EDT 11/06/2024 7:32 PM EDT us Nathaly Nowak MD LAB POINT OF CARE TE ST DOCKED DEVICE UNSOLICITED RESULTS Final Result Performing Organization Address City/State/[facility] Co de Phone Number [facility] [address] [place] [address] * (ABNORMAL) POCT glucose meter (11/06/2024 6:15 PM EDT) [facility] POCT Glucose 368(H) 74 - 99 [...] 11/06/2024 6:17 PM EDT [facility] Invasive Physician ID Estefani Sheth 11/06/2024 6:17 PM EDT [facility] Device ID [id number] 11/06/2024 6:17 PM EDT [facility] Specimen Type POC Capillary 11/06/2024 6:17 PM EDT [facility] Blood Capillary blood specimen / Unknown 11/06/2024 6:15 PM EDT 11/06/2024 6:17 PM EDT Nathaly Nowak MD LAB POINT OF CARE TE ST DOCKED DEVICE UNSOLICITED RESULTS Final Result Performing Organization Address City/[facility]/ZIP Co de Phone Number [facility] [address] [place] [address] * (ABNORMAL) POCT glucose meter (11/06/2024 4:57 [...] for testing. Comment 11/06/2024 4:58 PM EDT [facility] Invasive Physician ID Estefani Sheth 11/06/2024 4:58 PM EDT [facility] Device ID [id number] 11/06/2024 4:58 PM EDT [facility] Specimen Type POC Capillary 11/06/2024 4:58 PM EDT [facility] Blood Capillary blood specimen / Unknown 11/06/2024 4:57 PM EDT 11/06/2024 4:58 PM EDT Nathaly Nowak MD LAB POINT OF CARE TE ST DOCKED DEVICE UNSOLICITED RESULTS Final Result [facility] [address] [place] [address] * (ABNORMAL) POCT glucose meter (11/06/2024 2:08 [...] Comment 11/06/2024 2:09 PM EDT [facility]ALTH[facility]ARE [facility] Invasive Physician ID Brigitte Castellon 11/06/2024 2:09 PM EDT HEALTH[facility]ARE LAB Device ID [id number] 11/06/2024 2:09 PM EDT [facility]ALTH[facility]ARE [facility] Specimen Type POC Capillary 11/06/2024 2:09 PM EDT [facility] Blood Capillary blood specimen / Unknown 11/06/2024 2:08 PM EDT 11/06/2024 2:09 PM EDT us Nathaly Nowak MD LAB POINT OF CARE TE ST DOCKED DEVICE UNSOLICITED RESULTS Final Result Performing Organization Address City/State/[facility] Co de Phone Number HE[facility]ARE [facility] [address] [place] [address] * (ABNORMAL) POCT glucose meter (11/06/2024 12:27 [...] Comment 11/06/2024 12:28 PM EDT [facility]ALTH[facility]ARE [facility] Invasive Physician ID Jacinta Galloway 11/06/2024 12:28 PM EDT HEALTHCARE LAB Device ID [id number] 11/06/2024 12:28 PM EDT HEALTH[facility]ARE [facility] Specimen Type POC Capillary 11/06/2024 12:28 PM EDT HEALTH[facility]ARE [facility] Blood Capillary blood specimen / Unknown 11/06/2024 12:27 PM EDT 11/06/2024 12:28 PM EDT Nathaly Nowak MD LAB POINT OF CARE TE ST DOCKED DEVICE UNSOLICITED RESULTS Final Result [facility] [address] [place] [address] * (ABNORMAL) Tissue Culture and Gram Stain (11/06/2024 11:34 AM EDT) Culture Moderate Growth 7:35 AM EDT [facility] Culture 2+ Enterobacter cloacae complex(A) ANGÉLICA 11/15/2024 7:35 AM EDT [facility] Comment: This isolate has been identified using the FDA Approved [employer] [place] System The organism value for this result has been updated. These results have been appended to the previously preliminary verified report. Edited result: Previously reported as Gram Negative Jesus on 11/07/2024 at 1434 EDT. Culture 2+ Streptococcus mitis/oralis group(A) ANGÉLICA 11/15/2024 7:35 AM EDT [facility] Comment: This isolate has been identified using the FDA Approved [employer]DI batteriiyper CA System The organism value for this result has been updated. These results have been appended to the previously preliminary verified report. Culture 2+ Pasteurella stomatis(A) ANGÉLICA 11/15/2024 7:35 AM EDT [facility] Comment: This result was determined by MALDI tof mass spectrometry using the [employer] database and is for research use only. [...] GENERAL ORDE LAM Edited Result - Final [facility] [address] [place] [address] * (ABNORMAL) Anaerobic Culture (11/06/2024 11:34 AM EDT) Culture No anaerobes isolated 11/14/2024 1:25 PM EDT [facility] Culture Staphylococcus pseudintermedius( A) 11/14/2024 1:25 PM EDT [facility] Comment: This result was determined by MALDI tof mass spectrometry using the [employer] database and is for research use only. [...] Edited Result - Final Performing Organization Address [facility] Co de Phone Number [facility] [address] [place] [address] * (ABNORMAL) Routine Culture and Gram Stain (11/06/2024 11:29 AM EDT) Culture Moderate Growth 5:29 PM EDT [facility] Culture Enterobacter cloacae complex(A) 11/08/2024 5:29 PM EDT [facility] Comment: This isolate has been identified using the FDA Approved [employer]DI batteriiyper CA System For susceptibility results refer to: - [id number] The organism value for this result has [...] ATIYA FRITZ Final Result Performing Organization Address [facility] Co de Phone Number [facility] [address] [place] [address] * Fungal Culture, Routine (11/06/2024 11:29 AM EDT) Culture No Fungal Growth at 1 Week 11/13/2024 8:29 AM EDT [facility] Swab Topography unknown / Unknown 11/06/2024 11:29 AM EDT 11/06/2024 12:19 PM EDT Comment:Pre-op diagnosis: Surgical wound infection [T81.49XA] Nathaly Nowak MD LAB MICROBIOLOGY - [facility] ATIYA [facility] Final Result [facility] [address] [place] [address] * (ABNORMAL) Anaerobic Culture (11/06/2024 11:29 AM EDT) Culture No anaerobes isolated 11/14/2024 1:25 PM EDT [facility] Culture Streptococcus mitis/oralis group(A) 11/14/2024 1:25 PM EDT [facility] Comment: This result was determined by MALDI tof mass spectrometry using the [employer] database and is for research use only. [...] been identified using the FDA Approved [employer] batteriiyper CA System This is an appended report. [...] <=0.25 ug/ml: Susceptible Staphylococcus pseudintermedius Penicillin G ANGLÉICA >1 ug/ml: Resistant Staphylococcus pseudintermedius Tetracycline ANGÉLICA <=0.5 ug/ml: Susceptible Staphylococcus pseudintermedius Vancomycin ANGÉLICA <=0.5 ug/ml: Susceptible Nathaly Nowak MD LAB MICROBIOLOGY - GENERAL ATIYA FRITZ Edited Result - Final Performing Organization Address [facility]/ZIP Co de Phone Number [facility] [address] [place] [address] * Routine Culture and Gram Stain (11/06/2024 [...] ORDE LAM Final Result Performing Organization Address [facility]/[place] [address] * Fungal Culture, Routine (11/06/2024 11:28 AM EDT) Culture No Fungal Growth at 1 Week 11/13/2024 8:29 AM EDT [facility] Swab Topography unknown / Unknown 11/06/2024 11:28 AM EDT 11/06/2024 12:20 PM EDT Comment:Pre-op diagnosis: Surgical wound infection [T81.49XA] Nathaly Nowak MD LAB MICROBIOLOGY - GENERAL ORDE LAM Final Result Performing Organization Address [facility] Co de Phone Number [facility] [address] [place] [address] * Anaerobic Culture (11/06/2024 11:28 AM EDT) Pathologist [facility] Culture No growth at day 4 11/13/2024 12:53 PM EDT [facility] Swab Topography unknown / Unknown 11/06/2024 11:28 AM EDT 11/06/2024 12:20 PM EDT Comment:Pre-op diagnosis: Surgical wound infection [T81.49XA] Nathaly Nowak MD LAB MICROBIOLOGY - GENERAL ATIYA FRITZ Final Result Performing Organization Address [facility] Phone Number [facility] [address] [place] [address] * (ABNORMAL) POCT glucose meter (11/06/2024 10:16 AM EDT) [facility] POCT Glucose 194(H) 74 - 99 [...] 11/06/2024 10:18 AM EDT [facility] Invasive Physician ID Lacy Griffin 11/07/19 10:18 AM EDT HEALTHCARE LAB Device ID [id number] 11/06/2024 10:18 AM EDT [facility] Specimen Type POC Capillary 11/06/2024 10:18 AM EDT [facility] Blood Capillary blood specimen / Unknown 11/06/2024 10:16 AM EDT 11/06/2024 10:18 AM EDT Nathaly Nowak MD LAB POINT OF CARE TE ST DOCKED DEVICE UNSOLICITED RESULTS Final Result Performing Organization Address [facility] de Phone Number [facility]ALTHCARE [facility] [address] [place] [address] * (ABNORMAL) POCT glucose meter (11/06/2024 5:58 [...] Comment 11/06/2024 6:01 AM EDT [facility]ALTH[facility]ARE LAB Invasive Physician ID Raj Laird 11/07/19 6:01 AM EDT [facility] Device ID [id number] 11/06/2024 6:01 AM EDT [facility] Specimen Type POC Capillary 11/06/2024 6:01 AM EDT [facility] Blood Capillary blood specimen / Unknown 11/06/2024 5:58 AM EDT 11/06/2024 6:01 AM EDT Nathaly Nowak MD LAB POINT OF CARE TE ST DOCKED DEVICE UNSOLICITED RESULTS Final Result Performing Organization Address City/[facility] Co de Phone Number [facility] [address] [place] [address] * (ABNORMAL) POCT glucose meter (11/06/2024 5:36 AM EDT) Pathologist [facility] POCT Glucose 202(H) 74 - 99 [...] Comment 11/06/2024 5:38 AM EDT [facility]ALTH[facility]ARE [facility] Invasive Physician ID Shahid Sanches 11/06/2024 5:38 AM EDT [facility]ALTH[facility]ARE LAB Device ID [id number] 11/06/2024 5:38 AM EDT [facility]ALTH[facility]ARE LAB Specimen Type POC Capillary 11/06/2024 5:38 AM EDT [facility] Blood Capillary blood specimen / Unknown 11/06/2024 5:36 AM EDT 11/06/2024 5:38 AM EDT us Nathaly Nowak MD LAB POINT OF CARE TE ST DOCKED DEVICE UNSOLICITED RESULTS Final Result Performing Organization Address [facility] de Phone Number [facility] [address] [place] [address] * (ABNORMAL) Hemoglobin A1c (11/06/2024 1:07 AM [...] Adults <6.0% Children and Adolescents <7.5% Source: [employer]. Standards of medical care in diabetes,2017. Diabetes Care.2017:40 (suppl 1):S1-S135. us Nathaly Nowak MD LAB BLOOD ORDERABLES Final Resu lt Performing Organization Address City/[facility]/ZIP Co de Phone Number [facility] [address] [place] [address] * Blood Culture (Aerobic/Anaerobet Set) (11/06/2024 1:07 AM EDT) Culture No growth at day 5 11/11/2024 2:49 AM EDT [facility] Blood Structure of right hand / Unknown Venipuncture / Unknown 11/06/2024 1:07 AM EDT 11/06/2024 2:36 AM EDT Nathaly Nowak MD LAB MICROBIOLOGY - GENERAL ORDE RABLES Final Result Performing Organization Address City/[facility] Co de Phone Number [facility] [address] [place] [address] * Blood Culture (Aerobic/Anaerobet Set) (11/06/2024 1:07 AM EDT) Culture No growth at day 5 11/11/2024 3:01 AM EDT [facility] Blood Structure of antecubital vein / Unknown Venipuncture / Unknown 11/06/2024 1:07 AM EDT 11/06/2024 2:36 AM EDT us Nathaly Nowak MD LAB MICROBIOLOGY - GENERAL ORDE LAM Final Result Performing Organization Address [facility] de Phone Number [facility] [address] [place] [address] * (ABNORMAL) Basic metabolic panel (11/06/2024 1:07 [...] ORDERABLES Final Resu lt Performing Organization Address City/[facility]/ZIP Co de Phone Number [facility] [address] [place] [address] * Phosphorus (11/06/2024 1:07 AM EDT) Phosphorus, Plasma 3.2 2.5 - 4.5 mg/dL 11/06/2024 1:41 AM EDT [facility] Blood Venous blood specimen / Unknown Venipuncture / Unknown 11/06/2024 1:07 AM EDT 11/06/2024 1:12 AM EDT us Nathaly Nowak MD LAB BLOOD ORDERABLES Final Resu lt [facility] [address] [place] [address] * Magnesium (11/06/2024 1:07 AM EDT) Magnesium, Plasma 2.2 1.9 - 2.4 mg/dL 11/06/2024 1:41 AM EDT [facility] Blood Venous blood specimen / Unknown Venipuncture / Unknown 11/06/2024 1:07 AM EDT 11/06/2024 1:12 AM EDT us Nathaly Nowak MD LAB BLOOD ORDERABLES Final Resu lt [facility] [address] [place] [address] * (ABNORMAL) CBC (11/06/2024 1:07 AM EDT) [...] ORDERABLES Final Resu lt Performing Organization Address [facility]/ZIP Co de Phone Number [facility] [address] [place] [address] * Gold Top (11/06/2024 12:58 AM EDT) Extra Hold for add-ons 11/06/2024 3:21 AM EDT [facility] Comment:Auto resulted. Blood Venous blood specimen / Unknown 11/06/2024 12:58 AM EDT 11/06/2024 1:13 AM EDT us Nathaly Nowak MD LAB BLOOD ORDERABLES Final Resu lt Performing Organization Address City/[facility]/ZIP Co de Phone Number [facility] [address] [place] [address] * Gold Top (11/06/2024 12:58 AM EDT) Extra Hold for add-ons 11/06/2024 3:21 AM EDT [facility] Comment:Auto resulted. Blood Venous blood specimen / Unknown 11/06/2024 12:58 AM EDT 11/06/2024 1:13 AM EDT us Nathaly Nowak MD LAB BLOOD ORDERABLES Final Resu lt Performing Organization Address City/[facility]/ZIP Co de Phone Number [facility] [address] [place] [address] * Light Green Top (11/06/2024 12:58 AM EDT) Extra Hold for add-ons 11/06/2024 3:21 AM EDT [facility] Comment:Auto resulted. Blood Venous blood specimen / Unknown 11/06/2024 12:58 AM EDT 11/06/2024 1:13 AM EDT us Nathaly Nowka MD LAB BLOOD ORDERABLES Final Resu lt Performing Organization Address [facility] Co de Phone Number [facility] [address] [place] [address] * Light Blue Top (11/06/2024 12:58 AM EDT) Extra Hold for add-ons 11/06/2024 3:21 AM EDT [facility] Comment:Auto resulted. Blood Venous blood specimen / Unknown 11/06/2024 12:58 AM EDT 11/06/2024 1:13 AM EDT us Nathaly Nowak MD LAB BLOOD ORDERABLES Final Resu lt Performing Organization Address [facility] de Phone Number [facility] [address] [place] [address] * Light Blue Top (11/06/2024 12:58 AM EDT) Extra Hold for add-ons 11/06/2024 3:21 AM EDT [facility] Comment:Auto resulted. Blood Venous blood specimen / Unknown 11/06/2024 12:58 AM EDT 11/06/2024 1:13 AM EDT us Nathaly Nowak MD LAB BLOOD ORDERABLES Final Resu lt Performing Organization Address [facility] de Phone Number [facility] [address] [place] [address] * (ABNORMAL) POCT glucose meter (11/06/2024 12:45 AM EDT) POCT Glucose 204(H) 74 - 99 mg/dL 11/06/2024 12:48 AM EDT [facility] Comment:Accuracy of a glucos [...] Comment 11/06/2024 12:48 AM EDT [facility] Invasive Physician ID Raj Laird 11/07/19 12:48 AM EDT [facility] Device ID [id number] 11/06/2024 12:48 AM EDT [facility] Specimen Type POC Capillary 11/06/2024 12:48 AM EDT [facility] Blood Capillary blood specimen / Unknown 11/06/2024 12:45 AM EDT 11/06/2024 12:48 AM EDT us Nathaly Nowak MD LAB POINT OF CARE TE ST DOCKED DEVICE UNSOLICITED RESULTS Final Result [facility] [address] [place] [address] documented in this encounter Visit Diagnoses Diagnosis [...] on Mon11/06/24 at 0031, Until [facility] 11/14/24 at 1804, Routine, line care [...] on Mon11/06/24 at 0753, Until [facility] 11/14/24 at 1804, Routine, On Unit [...] not met) 0258 (Not Given - Provider: Jonahtan Vale RN - Reason: Order parameters not [...] - Provider: Devora Bo)2149 (Given - Provider: Jonahtan Vale RN - Comment: previous antibiotic not [...] documented as of this encounter Care Teams Needle Molder Relationship Specialty Start Date End Date Asad Victor MD [address] [place] [address] PCP - General 10/07/22 documented as of this encounter
--- OUTSIDE RECORDS SUMMARY | 2024-11-06 10:47 | XMS_ITS | Encounter Summary ---
Author Organization Healthcare Address [address] [place] [address] Care Team Providers Care Psych Rn Name Role Phone Asad Victor MD Primary Care Provider + [phone] Reason for Visit * Auth/Cert (Routine) Specialty Diagnoses / Procedures Referred By Contac t Referred To Contact Diagnoses Wound infection Post-op Vasc Sx wounds - sx on 10/17 at Nathaly Nowak MD [address] [facility] [address] [place] [address] Phone: tel: fax: [facility] A Emergency Department [address] [place] [address] Phone: tel: Referral ID Status Reason Start Date Expiration Date Visits Re quested Visits Authorized [id number] 1 1 Encounter Details Date Type Department Care Team (Late st Contact Info) Description 11/06/2024 10:47 AM EDT Anesthesia Event [facility] OPERATING ROOM [address] [place] [address] Bill Sue MD [address] [place] [address] Sabrina Mckeon PA [address] [facility] [address] [place] [address] Anesthesia Record Procedure Summary Procedure [...] Lechuga CRNA, DNP 11/06/24 1150 by Asad Lechgua CRNA, DNP documented in this encounter Social [...] any time in the past 12 m [facility], were you homeless or [...] drink first t dino in the morning (EYE-LOW VISION THERAPIST) to steady your nerves or to get [...] and Staff Patient location during procedure: OR RELIEF PILOT: Asad Lechuga CRNA, DNP Performed: RELIEF PILOT Patient Condition Indications for airway management: anesthesia [...] placement (Left) Location: [facility] OR 16 / [place] OR Surgeons: Nathaly Nowak MD [facility] Mono Ana Bobby is a [...] QT Interval 390 QTC Interval 464 P [place] 52 R [place] 263 T Wave [place] 57 Diagnosis Atrial-sensed ventricular-paced rhythm Diagnosis Biventricular [...] is no recent study available for direct [id number]-cw-[id number] comparison. [facility]: Pre-operative CIED Report Assessment and Sara- Procedural Reommendations: Name: Mono Bobby Date: 10/17/2024 : 1960 Age: 64 y.o. Patient has a Scaffolding Helper: Berger HYBRID DERIVATIVES TRADER-PM Remaining battery longevity adequate. Lead integrity test [...] RVR s/p CABG), CAD (CAD s/p multiple MN's and 3V CABG02/2019, 2 stents prior to CABG), carotid artery disease (carotid artery disease s/p R CEA 2016), dysrhythmias (3rd degree AV block HYBRID DERIVATIVES TRADER-P placed 08/2023 for Wenkeback with 11 sec pause), hyperlipidemia, pacemaker and PVD. Does not have angina, CHF, murmur, orthopnea, syncope or valvular heart disease. hypertension: Cardio additional comments: Follows with OSH Card last seen 09/25/24 ([place]) . Respiratory: home oxygen (2L). no asthma: [...] ENDARTERECTOMY N/A 2017 Endarterectomy Carotid Artery from [employer] CORONARY ANGIOPLASTY Left Coronary Angiography With Concomitant Left Heart Catheterization from [employer] CORONARY ARTERY BYPASS GRAFT N/A 2018 3V ELBOW SURGERY Right ENDARTERECTOMY Left 10/17/2024 common/SFA/Profunda thromboendarterectomy, EIA/OCCUPANCY SPECIALIST stent HERNIA REPAIR KNEE ARTHROSCOPY Left VASCULAR SURGERY Left 09/21/2024 OCCUPANCY SPECIALIST pseudoaneurym injection [5] Social History Tobacco Use [...] Description 12/13/2024 2:00 PM EDT Office Visit [facility] [address] [facility] [place] [address] Oscar Appiah MD [address] [facility] [address] [place] [address] 12/19/2024 7:30 AM EDT Appointment [facility] Lab [address] [facility] 5th Floor [address] [place] [address] 12/19/2024 8:00 AM EDT Appointment [facility] [address] [place] [address] 12/19/2024 9:00 AM EDT Office Visit [facility] [address] [place] [address] Nathaly Nowak MD [address] [facility] [address] [place] [address] documented as of this encounter Goals Goal [...] and Staff Patient location during procedure: OR RELIEF PILOT: Asad Lechuga CRNA, DNP Performed: ISH Patient [...] documented as of this encounter Care Teams Psych Rn Relationship Specialty Start Date End Date Asad Victor MD [address] [place] [address] PCP - General 10/07/22 documented as of this encounter
--- OUTSIDE RECORDS SUMMARY | 2024-11-18 13:10 | XMS_ITS | Encounter Summary ---
Author Organization [employer] ([place], [place], [place], [place]) Address [address] [place] [address] Care Team Providers Care Test Facility Engineer Name Role Phone Unavailable Primary Care Provider Unavailabl e Reason for Visit * Reason Comments Wound Care Encounter Details Date Type Department Care Team (Late st Contact Info) Description 11/18/2024 1:10 PM EDT Office Visit [facility] 1 [place] [address] Jerry Monroe Jr., MD [address] [place] [address] Non-pressure chronic ulcer of skin of [...] health nurse( if you have home health) [facility] for an appointment. documented in this [...] upper leg. Patient was admitted to the [facility] on November 05, 2024 and [...] line. Patient is getting daily infusions at [facility] through his PICC line for antibiotics. [...] provider verified the correct patient, procedure, equipment, application support developer, and site/side marked as required. Debridement Details [...] provider verified the correct patient, procedure, equipment, application support developer, and site/side marked as required. Debridement Details [...] Care Team (Late st Contact Info) Description 12/06/2024 4:15 PM EDT Clinical Support [address] [address] 12/09/2024 3:30 PM EDT Clinical Support [address] [address] 12/11/2024 2:40 PM EDT Office Visit [address] [address] Jerry Monroe Jr., MD [address] [place] [address] 12/13/2024 3:30 PM EDT Clinical Support [address] [address] 12/16/2024 3:30 PM EDT Clinical Support [address] [address] 12/18/2024 3:00 PM EDT Office Visit [address] [address] Jerry Monroe Jr., MD [address] [place] [address] 12/20/2024 3:30 PM EDT Clinical Support [facility] [address] [place] [phone] documented as of this encounter Procedures Procedure Name Priority Date/Time Associated Diagnosis Comments [place] DEBRIDEMENT MUSCLE &/FASCIA EA ADDL 20 SQ CM Routine 11/18/2024 1:10 PM EDT 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) Localized tissue (HCC) Other specified local infections of the skin and subcutaneous tissue AR DEBRIDEMENT MUSCLE &/FASCIA EA ADDL 20 SQ CM Routine 11/18/2024 1:10 PM EDT 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) Localized tissue (HCC) Other specified local infections of the skin and subcutaneous tissue AR DEBRIDEMENT MUSCLE &/FASCIA 1ST 20 SQ CM/< Routine 11/18/2024 1:10 PM EDT 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) Localized tissue (HCC) Other specified local infections of the skin and subcutaneous tissue AR DEBRIDEMENT MUSCLE &/FASCIA EA ADDL 20 SQ CM Routine 11/18/2024 1:10 PM EDT 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) Localized tissue (HCC) Other specified local infections of the skin and subcutaneous tissue AR DEBRIDEMENT MUSCLE &/FASCIA EA ADDL 20 SQ CM Routine 11/18/2024 1:10 PM EDT 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) Localized tissue (HCC) Other specified local infections of the skin and subcutaneous tissue AR DEBRIDEMENT MUSCLE &/FASCIA 1ST 20 SQ CM/< Routine 11/18/2024 1:10 PM EDT 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 Debridement Details [...] MD PROCEDURE/MINOR SURGICAL ORDERABLES Final Result * [place] DEBRIDEMENT MUSCLE &/FASCIA 1ST 20 SQ CM/<, [place] DEBRIDEMENT MUSCLE &/FASCIA EA ADDL 20SQ CM, [place] DEBRIDEMENT MUSCLE &/FASCIA EA ADDL 20 SQ [...] provider verified the correct patient, procedure, equipment, application support developer, and site/side marked as required. Debridement Details [...]
--- OUTSIDE RECORDS SUMMARY | 2024-11-20 14:15 | XMS_ITS | Encounter Summary ---
Author Organization [employer] ([place], [place], [place], [place]) Address [address] [place] [address] Care Team Providers Care Bag Making Machine Operator Name Role Phone Unavailable Primary Care Provider Unavailabl e Reason for Visit * Reason Comments Wound Care Nurse visit for woun d vac change, wound care and dressing change Encounter Details Date Type Department Care Team (Late st Contact Info) Description 11/20/2024 2:15 PM EDT Clinical Support [facility] 1 [place] [address] Jerry Monroe Jr., MD [address] [place] [address] Non-pressure chronic ulcer of skin of [...] Description 12/06/2024 4:15 PM EDT Clinical Support [facility] 1 [place] [address] 12/09/2024 3:30 PM EDT Clinical Support [address] [address] 12/11/2024 2:40 PM EDT Office Visit [address] [address] Jerry Monroe Jr., MD [address] [place] [address] 12/13/2024 3:30 PM EDT Clinical Support [address] [address] 12/16/2024 3:30 PM EDT Clinical Support [address] [address] 12/18/2024 3:00 PM EDT Office Visit [address] [address] Jerry Monroe Jr., MD [address] [place] [address] 12/20/2024 3:30 PM EDT Clinical Support [address] [address] documented as of this encounter Results * Wound Treatment (11/22/2024 5:14 PM EDT) Jerry Monroe Jr., MD NURSING PATHWAYS ORDERABL ES Final Result documented in this encounter Visit Diagnoses Diagnosis 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
--- OUTSIDE RECORDS SUMMARY | 2024-11-22 16:15 | XMS_ITS | Encounter Summary ---
Author Organization [employer] ([place], [place], [place], [place]) Address [address] [place] [address] Care Team Providers Care Inspector Insulation Name Role Phone Unavailable Primary Care Provider Unavailabl e Reason for Visit * Reason Comments Wound Care Encounter Details Date Type Department Care Team (Late st Contact Info) Description 11/22/2024 4:15 PM EDT Clinical Support [facility] 1 [place] [address] Jerry Monroe Jr., MD [address] [place] [address] Non-pressure chronic ulcer of skin of [...] Description 12/06/2024 4:15 PM EDT Clinical Support [facility] [place] 1 [place] [address] 12/09/2024 3:30 PM EDT Clinical Support [facility] 1 [place] [address] 12/11/2024 2:40 PM EDT Office Visit [facility]ound [facility] 1 [place] [address] Jerry Monroe Jr., MD [address] [place] [address] 12/13/2024 3:30 PM EDT Clinical Support [facility] 1 [place] [address] 12/16/2024 3:30 PM EDT Clinical Support [facility] 1 [place] [address] 12/18/2024 3:00 PM EDT Office Visit [facility] 1 [place] [address] Jerry Monroe Jr., MD [address] [place] [address] 12/20/2024 3:30 PM EDT Clinical Support [facility] [place] 1 [place] [address] documented as of this encounter Procedures Procedure [...]
--- OUTSIDE RECORDS SUMMARY | 2024-11-27 14:20 | XMS_ITS | Encounter Summary ---
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) Procedures Wound Treatment Jerry Monroe Jr., MD [address] [place] [address] Phone: tel: fax: Referral ID Status Reason Start Date Expiration Date V isits Requested Visits Authorized [id number] New Request 11/27/2024 11/27/2025 3 3 Reason for Visit * Reason Comments Wound Care Encounter Details Date Type Department Care Team (Late st Contact Info) Description 11/27/2024 2:20 PM EDT Office Visit [facility] 1 [place] [address] Jerry Monroe Jr., MD [address] [place] [address] Non-pressure chronic ulcer of skin of [...] upper leg. Patient was admitted to the [facility] on November 05, 2024 and [...] line. Patient is getting daily infusions at [facility] through his PICC line for antibiotics. [...] Description 12/06/2024 4:15 PM EDT Clinical Support [facility] 1 [place] [address] 12/09/2024 3:30 PM EDT Clinical Support [facility] 1 [place] [address] 12/11/2024 2:40 PM EDT Office Visit [facility] 1 [place] [address] Jerry Monroe Jr., MD [address] [place] [address] 12/13/2024 3:30 PM EDT Clinical Support [facility] 1 [place] [address] 12/16/2024 3:30 PM EDT Clinical Support [facility] 1 [place] [address] 12/18/2024 3:00 PM EDT Office Visit [facility] 1 [place] [address] Jerry Monroe Jr., MD [address] [place] [address] 12/20/2024 3:30 PM EDT Clinical Support [facility] 1 [place] [address] documented as of this encounter Procedures Procedure [...]
--- OUTSIDE RECORDS SUMMARY | 2024-11-29 16:00 | XMS_ITS | Encounter Summary ---
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 * Nallely [...] Description 12/06/2024 4:15 PM EDT Clinical Support [facility] 1 [place] [address] 12/09/2024 3:30 PM EDT Clinical Support [facility] 1 [place] [address] 12/11/2024 2:40 PM EDT Office Visit [facility] 1 [place] [address] Jerry Monroe Jr., MD [address] [place] [address] 12/13/2024 3:30 PM EDT Clinical Support [facility] 1 [place] [address] 12/16/2024 3:30 PM EDT Clinical Support [facility] 1 [place] [address] 12/18/2024 3:00 PM EDT Office Visit [facility] 1 [place] [address] Jerry Monroe Jr., MD [address] [place] [address] 12/20/2024 3:30 PM EDT Clinical Support [facility] 1 [place] [address] documented as of this encounter Visit Diagnoses Not on filedocumented in this encounter
--- OUTSIDE RECORDS SUMMARY | 2024-12-02 14:15 | XMS_ITS | Encounter Summary ---
Author Organization [employer] ([place], [place], [place], [place]) Address [address] [place] [address] Care Team Providers Care Wirer Maintenance Name Role Phone Unavailable Primary Care Provider Unavailabl e Reason for Visit * Reason Comments Wound Care Nurse visit for woun d vac and dressing change, wound care Encounter Details Date Type Department Care Team (Late st Contact Info) Description 12/02/2024 2:15 PM EDT Clinical Support [facility] 1 [place] [address] Jerry Monroe Jr., MD [address] [place] [address] Non-pressure chronic ulcer of skin of [...] Description 12/06/2024 4:15 PM EDT Clinical Support [facility] [place] 1 [place] [address] 12/09/2024 3:30 PM EDT Clinical Support [facility] [place] 1 [place] [address] 12/11/2024 2:40 PM EDT Office Visit [facility] [place] 1 [place] [address] Jerry Monroe Jr., MD [address] [place] [address] 12/13/2024 3:30 PM EDT Clinical Support [facility] [place] 1 [place] [address] 12/16/2024 3:30 PM EDT Clinical Support [facility] [place] 1 [place] [address] 12/18/2024 3:00 PM EDT Office Visit [facility] 1 [place] [address] Jerry Monroe Jr., MD [address] [place] [address] 12/20/2024 3:30 PM EDT Clinical Support [facility] 1 [place] [address] documented as of this encounter Visit Diagnoses Diagnosis 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
--- OUTSIDE RECORDS SUMMARY | 2024-12-04 13:40 | XMS_ITS | Encounter Summary ---
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.] upper leg. Patient was admitted to the [facility] on November 05, 2024 and dischargedon [...] line. Patient is getting daily infusions at [facility] through his PICC line [...] the correct patient, procedure, equipment, technical support consultant, and site/side marked as required. Debridement Details [...] the correct patient, procedure, equipment, technical support consultant, and site/side marked as required. Debridement Details [...] Description 12/06/2024 4:15 PM EDT Clinical Support [facility] [address] [place] [phone] 12/09/2024 3:30 PM EDT Clinical Support [facility] 1 [place] [address] 12/11/2024 2:40 PM EDT Office Visit [facility] 1 [place] [address] Jerry Monroe Jr., MD [address] [place] [address] 12/13/2024 3:30 PM EDT Clinical Support [facility] 1 [place] [address] 12/16/2024 3:30 PM EDT Clinical Support [facility] 1 [place] [address] 12/18/2024 3:00 PM EDT Office Visit [facility] [place] 1 [place] [address] Jerry Monroe Jr., MD [address] [place] [address] 12/20/2024 3:30 PM EDT Clinical Support [facility] 1 [place] [address] documented as of this encounter Procedures Procedure [...] NM DEBRIDEMENT MUSCLE &/FASCIA EA ADDL 20SQ CM [...] the correct patient, procedure, equipment, technical support consultant, and site/side marked as required. Debridement Details [...] NM DEBRIDEMENT MUSCLE &/FASCIA EA ADDL 20SQ CM [...] the correct patient, procedure, equipment, technical support consultant, and site/side marked as required. Debridement Details [...]
--- OUTSIDE RECORDS SUMMARY | 2024-12-05 08:05 | XMS_ITS | Encounter Summary ---
Author Organization Healthcare Address [address] [place] [address] Care Team Providers Care Geology Teacher Name Role Phone Asad Victor MD Primary Care Provider + [phone] Encounter Details Date Type Department Care Team (Late st Contact Info) Description 12/04/2024 Telephone [facility] [address] [facility] [address]th [address] [place] [address] Nathaly Nowak MD [address] [facility] [address] [place] [address] Social History Tobacco Use Types [...] drink first t dino in the morning (EYE-WELLNESS COORDINATOR) to steady your nerves or to get rid of a hangover? 0 10/18/2021 CAGE Questionnaire Score 0 022 Utilities Answer Date Recorded In the past 12 months has th e [employer], gas, oil, or water company threatened to shut off services in your home? No 11/07/2024 Sex and Gender Information Value Date Recorded Sex Assigned at Not on file Legal Sex Male 8:57 PM EDT Gender Identity Not on file Sexual Orientation Not on file documented as of this encounter Miscellaneous Notes * Telephone Encounter - Clare Fleming - 12/04/2024 11:35 AM EDT Clinical Concern/Question Reason for Call: quynh at [facility] calling for wound measurements for wound vac. Please call Best contact number: Other: [phone] Optimal time of day to reach caller: [...] EDT Office Visit [facility] [address] [facility] [place] [address] Oscar Appiah MD [address] [facility] [address] [place] [address] 12/19/2024 7:30 AM EDT Appointment [facility] Vascular Lab [address] [facility] 5th Floor [address] [place] [address] 12/19/2024 8:00 AM EDT Appointment [facility] [address] [facility] 5th [address] [place] [address] 12/19/2024 9:00 AM EDT Office Visit [facility] [address] [facility] 5th [address] [place] [address] Nathaly Nowak MD [address] [place] [address] documented as of this encounter Goals Goal [...] documented as of this encounter Care Teams Geology Teacher Relationship Specialty Start Date End Date Asad Victor MD [address] [place] [address] PCP - General 10/07/22 documented as of this encounter
--- OUTSIDE RECORDS SUMMARY | 2024-12-05 08:14 | XMS_ITS | Encounter Summary ---
Author Organization [facility] Address [address] [place] [address] Care Team Providers Care Tool Specialist Name Role Phone Asad Victor MD Primary Care Provider + [phone] Encounter Details Date Type Department Care Team [...] drink first t dino in the morning (EYE-LOCKSTITCH SLEEVE MAKER) to steady your nerves or to [...] Description 12/13/2024 2:00 PM EDT Office Visit [facility] [address] [facility] [place] [address] Oscar Appiah MD [address] [facility] [address] [place] [address] 12/19/2024 7:[address] [facility] Vascular Lab [address] 5th Floor [address] [place] [address] 12/19/2024 8:[address] [facility] [address] 5[address] [place] [address] 12/19/2024 9:00 AM EDT Office Visit [facility] [address] 5th [address] [place] [address] Nathaly Nowak MD [address] [place] [address] documented as of this encounter Goals Goal [...] documented as of this encounter Care Teams Tool Specialist Relationship Specialty Start Date End Date Asad Victor MD [address] [place] [address] PCP - General 10/07/22 documented as of this encounter
--- OUTSIDE RECORDS SUMMARY | 2024-12-05 08:14 | XMS_ITS | Encounter Summary ---
Author Organization [employer] ([place], [place], [place], [place]) Address [address] [place] [address] Care Team Providers Care Marketing Team Lead Name Role Phone Unavailable Primary Care Provider Unavailabl e Encounter Details Date Type Department Care Team (Latest Contact Info) Description 12/04/2024 Travel Social History Tobacco Use Types Packs/Day [...] Description 12/06/2024 4:15 PM EDT Clinical Support [facility] [address] [address] 12/09/2024 3:30 PM EDT Clinical Support [facility] [place] 1 [place] [address] 12/11/2024 2:40 PM EDT Office Visit [address] [address] Jerry Monroe Jr., MD [address] [place] [address] 12/13/2024 3:30 PM EDT Clinical Support [address] [address] 12/16/2024 3:30 PM EDT Clinical Support [address] [address] 12/18/2024 3:00 PM EDT Office Visit [facility] 1 [place] [address] Jerry Monroe Jr., MD [address] [place] [address] 12/20/2024 3:30 PM EDT Clinical Support [facility] [place] 1 [place] [address] documented as of this encounter Visit Diagnoses Not on filedocumented in this encounter
--- OUTSIDE RECORDS SUMMARY | 2024-12-05 08:16 | XMS_ITS | Encounter Summary ---
Author Organization [employer] ([place], [place], [place], [place]) Address [address] [place] [address] Care Team Providers Care Remote Computer Terminal Operator Name Role Phone Unavailable Primary Care [...] Description 12/06/2024 4:15 PM EDT Clinical Support [facility] [address] [address] 12/09/2024 3:30 PM EDT Clinical Support [facility] [place] 1 [place] [address] 12/11/2024 2:40 PM EDT Office Visit [address] [address] Jerry Monroe Jr., MD [address] [place] [address] 12/13/2024 3:30 PM EDT Clinical Support [address] [address] 12/16/2024 3:30 PM EDT Clinical Support [address] [address] 12/18/2024 3:00 PM EDT Office Visit [facility] Center 1 [place] [address] Jerry Monroe Jr., MD [address] [place] [address] 12/20/2024 3:30 PM EDT Clinical Support [facility] [place] 1 [place] [address] documented as of this encounter Visit Diagnoses Not on filedocumented in this encounter
--- OUTSIDE RECORDS SUMMARY | 2024-12-05 08:18 | XMS_ITS | Encounter Summary ---
Author Organization Healthcare Address [address] [id number] Care Team Providers Care Rail Maintenance Worker Name Role Phone Asad Victor MD Primary Care Provider + [phone] Reason for Visit * Reason Onset Date Comments HCN Clinical Concern/Question 11/15/2024 Encounter Details Date Type Department Care Team (Late st Contact Info) Description 11/15/2024 Telephone [place] [facility] [address] [facility] 5th Floor [address], [address] [place] [address] Nathaly Nowak MD [address] [facility] [address] [place] [address] HCN Clinical Concern/Question Social [...] in the past 12 m [facility], were you homeless [...] first t dino in the morning (EYE-GLOBAL COMPENSATION DIRECTOR) to steady your nerves or to [...] has been receiving his wound care through [facility] in [place]. Records requested from there. Post-op appointment request [...] with info. Thank you Best contact number: [phone] (mobile) Optimal time of day to reach [...] Description 12/13/2024 2:00 PM EDT Office Visit [facility] [address] [place] [address] Oscar Appiah MD [address] [facility] [address] [place] [address] 12/19/2024 7:30 AM EDT Appointment [facility] Vascular Lab [address]th [address] [place] [address] 12/19/2024 8:00 AM EDT Appointment [facility] Lab [address] 5th [address] [place] [address] 12/19/2024 9:00 AM EDT Office Visit [facility] [address] [place] [address] Nathaly Nowak MD [address] [facility] [address] [place] [address] documented as of this encounter Goals Goal [...] as of this encounter Care Teams Rail Maintenance Worker Relationship Specialty Start Date End Date Asad Victor MD [address] [place] [address] PCP - General 10/07/22 documented as of this encounter
--- OUTSIDE RECORDS SUMMARY | 2024-12-05 08:19 | XMS_ITS | Encounter Summary ---
Author Organization [facility] Address [address] [place] [address] Care Team Providers Care Cereal Supervisor Name Role Phone Asad Victor MD Primary Care Provider + [phone] Encounter Details Date Type Department Care Team [...] drink first t dino in the morning (EYE-OPERATIONS EXPERT) to steady your nerves or to [...] Description 12/13/2024 2:00 PM EDT Office Visit [facility] [address] [facility] [place] [address] Oscar Appiah MD [address] [facility] [address] [place] [address] 12/19/2024 7:30 AM EDT Appointment [facility] Vascular Lab [address] 5[address] [place] [address] 12/19/2024 8:00 AM EDT Appointment [facility] Vascular Lab [address] 5[address] [place] [address] 12/19/2024 9:00 AM EDT Office Visit [facility] [address] 5[address] [place] [address] Nathaly Nowak MD [address] [place] [address] documented as of this encounter Goals Goal [...] documented as of this encounter Care Teams Cereal Supervisor Relationship Specialty Start Date End Date Asad Victor MD [address] [place] [address] PCP - General 10/07/22 documented as of this encounter
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
--- OUTSIDE RECORDS SUMMARY | 2024-12-05 08:19 | XMS_ITS | Encounter Summary ---
Author Organization [employer] ([place], [place], [place], [place]) Address [address] [place] [address] Care Team Providers Care Case Picker Name Role Phone Unavailable Primary Care Provider Unavailabl e Encounter Details Date Type Department Care Team (Latest Contact Info) Description 12/02/2024 Travel Social History Tobacco Use Types Packs/Day [...] Description 12/06/2024 4:15 PM EDT Clinical Support [facility] [address] [address] 12/09/2024 3:30 PM EDT Clinical Support [facility] [place] [address] [place] [address] 12/11/2024 2:40 PM EDT Office Visit [address] [address] Jerry Monroe Jr., MD [address] [place] [address] 12/13/2024 3:30 PM EDT Clinical Support [address] [address] 12/16/2024 3:30 PM EDT Clinical Support [address] [address] 12/18/2024 3:00 PM EDT Office Visit [facility] [address] [place] [address] Jerry Monroe Jr., MD [address] [place] [address] 12/20/2024 3:30 PM EDT Clinical Support [facility] [address] [place] [address] documented as of this encounter Visit Diagnoses Not on filedocumented in this encounter
--- OUTSIDE RECORDS SUMMARY | 2024-12-05 08:20 | XMS_ITS | Encounter Summary ---
Author Organization Healthcare Address [address] [id number] Care Team Providers Care Garbage Man Name Role Phone Asad Victor MD Primary Care Provider + [phone] Encounter Details Date Type Department Care Team (Late st Contact Info) Description 10/22/2024 Telephone Vascular Surgery [address] [place] [address] Alison Beltrán, MODERATE NEEDS TEACHER, DNP [address] [facility] [address] [place] [address] Social History Tobacco Use Types Packs/Day Years [...] drink first t dino in the morning (EYE-PARKS RECREATION DIRECTOR) to steady your nerves or to [...] Notes * Telephone Encounter - Alison Beltrán, MODERATE NEEDS TEACHER, DNP - 10/22/2024 11:39 AM EDT Returned patient call. Patient s/p left common/superficial/profunda femoral thromboendarterectomy with bovine patch repair and left external iliac artery/HONEYCOMB BLANKET MAKER stent with Dr Gautam on 10/17/24. Patient [...] 12/13/2024 2:00 PM EDT Office Visit [facility] [address] [place] [address] Oscar Appiah MD [address] [facility] [address] [place] [address] 12/19/2024 7:30 AM EDT Appointment [facility] Vascular Lab [address] [place] [address] 12/19/2024 8:00 AM EDT Appointment [facility] Lab [address] [place] [address] 12/19/2024 9:00 AM EDT Office [facility] [address] 5th Floor Wing [address] [place] [address] Nathaly Nowak MD [address] [facility] [address] [place] [address] documented as of this encounter [...] documented as of this encounter Care Teams Garbage Man Relationship Specialty Start Date End Date Asad Victor MD [address] [place] [address] PCP - General 10/07/22 documented as of this encounter
--- OUTSIDE RECORDS SUMMARY | 2024-12-05 08:20 | XMS_ITS | Encounter Summary ---
Author Organization Healthcare Address [address] [place] [address] Care Team Providers Care Spool Salvager Name Role Phone Asad Victor MD Primary Care Provider + [phone] Encounter Details Date Type Department Care Team (Late st Contact Info) Description 10/17/2024 Orders Only External Location [address] [place] [address] Provider, External Social History Tobacco Use Types [...] drink first t dino in the morning (EYE-TANKMAN) to steady your nerves or to get rid of a hangover? 0 10/18/2021 CAGE Questionnaire Score 0 022 Utilities Answer Date Recorded In the past 12 months has th e [employer], gas, oil, or water [employer] threatened to shut off services in [...] Description 12/13/2024 2:00 PM EDT Office Visit [facility] [address] [facility] [place] [address] Oscar Appiah MD [address] [facility] [address] [place] [address] 12/19/2024 7:30 AM EDT Appointment [facility] Vascular Lab [address] 5[address] Floor [address] [place] [address] 12/19/2024 8:00 AM EDT Appointment [facility] [address] [place] [address] 12/19/2024 9:00 AM EDT Office Visit [facility] [address] 5[address] Floor Wing [address] [place] [address] Nathaly Nowak MD [address] [place] [address] documented as of this encounter Goals Goal [...] as of this encounter Care Teams Spool Salvager Relationship Specialty Start Date End Date Asad Victor MD [address] [place] [address] PCP - General 10/07/22 documented as of this encounter
--- OUTSIDE RECORDS SUMMARY | 2024-12-05 08:20 | XMS_ITS | Encounter Summary ---
Author Organization [facility] Address [address] [place] [address] Care Team Providers Care Car Top Bolter Name Role Phone Asad Victor MD Primary Care Provider + [phone] Encounter Details Date Type Department Care Team [...] drink first t dino in the morning (EYE-FILING CLERK) to steady your nerves or to [...] Description 12/13/2024 2:00 PM EDT Office Visit [facility] [address] [place] [address] Oscar Appiah MD [address] [address] 12/19/2024 7:30 AM EDT Appointment [facility] Lab [address] [place] [address] 12/19/2024 8:00 AM EDT Appointment [facility] [address] [facility] 5th Floor Wing [address] [place] [address] 12/19/2024 9:00 AM EDT Office Visit [facility] [address] [place] [address] Nathaly Nowak MD [address] [facility] [address] [place] [address] documented as of this encounter [...] as of this encounter Care Teams Car Top Bolter Relationship Specialty Start Date End Date Asad Victor MD [address] [place], [place] [phone] PCP - General 10/07/22 documented as of this encounter
--- OUTSIDE RECORDS SUMMARY | 2024-12-05 08:20 | XMS_ITS | Encounter Summary ---
Author Organization Healthcare Address [address] [place] [address] Care Team Providers Care Outreach Librarian Name Role Phone Asad Victor MD Primary Care Provider + [phone] Encounter Details Date Type Department Care Team (Late st Contact Info) Description 11/27/2024 Orders Only [address] [address] Vaishali Kraus MD [address] [place] [address] [address] [place] [address] Therapeutic drug monitoring (Primary Dx) [...] drink first t dino in the morning (EYE-PRESSURE CONTROLLER) to steady your nerves or to [...] Description 12/13/2024 2:00 PM EDT Office Visit [facility] [address] [facility] [address] [place] [address] Oscar Appiah MD [address] [facility] [address] [place] [address] 12/19/2024 7:30 AM EDT Appointment [facility] Vascular Lab [address] 5[address] Floor [address] [place] [address] 12/19/2024 8:00 AM EDT Appointment [facility] Lab [address] 5th [address] [place] [address] 12/19/2024 9:00 AM EDT Office Visit [facility] [address] 5th Floor Wing [address] [place] [address] Nathaly Nowak MD [address] [place] [address] Scheduled Orders Name Type Priority [...] Date End Date Asad Victor MD [address] [place] [address] PCP - General 10/07/22 documented as of this encounter
--- OUTSIDE RECORDS SUMMARY | 2024-12-05 08:24 | XMS_ITS | Referral Summary ---
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); Localized tissue (HCC); Other specified local infections of the skin and subcutaneous tissue; Diabetes mellitus with skin ulcer (HCC) 12/02/2024 Travel 12/02/2024 2:15 PM EDT Clinical Support [facility] [address] [phone] Jerry Monroe Jr., MD 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) 11/29/2024 4:00 PM EDT Clinical Support [facility] [address] [place] [address] Jerry Monroe Jr., MD 11/27/2024 Travel 11/27/2024 2:20 PM EDT Office Visit [facility] [address] [place] [address] Jerry Monroe Jr., MD 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); Localized tissue (HCC); Other specified local infections of the skin and subcutaneous tissue; Diabetes mellitus with skin ulcer (HCC) 11/22/2024 4:15 PM EDT Clinical Support [facility] [address] [place] [address] Jerry Monroe Jr., MD 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) 11/20/2024 Travel 11/20/2024 2:15 PM EDT Clinical Support [facility] [address] [place] [address] Jerry Monroe Jr., MD 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) 11/18/2024 Travel 11/18/2024 1:10 PM EDT Office Visit [facility] [address] [place] [address] Jerry Monroe Jr., MD Non-pressure chronic ulcer [...] Description 12/06/2024 4:15 PM EDT Clinical Support [facility] [address] [place] [address] 12/09/2024 3:30 PM EDT Clinical Support [facility] [address] [place] [address] 12/11/2024 2:40 PM EDT Office Visit [facility] [address] [place] [address] Jerry Monroe Jr., MD [address] [place] [address] 12/13/2024 3:30 PM EDT Clinical Support [facility] [address] [place] [address] 12/16/2024 3:30 PM EDT Clinical Support [facility] [address] [place] [address] 12/18/2024 3:00 PM EDT Office Visit [facility] [address] [place] [address] Jerry Monroe Jr., MD [address] [place] [address] 12/20/2024 3:30 PM EDT Clinical Support [facility] [address] [place] [address] Procedures Procedure Name Priority Date/Time Associated Diagnosis Comments CO DEBRIDEMENT MUSCLE &/FASCIA EA ADDL 20 SQ CM Routine 12/04/2024 1:40 PM EDT 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) Localized tissue (HCC) Other specified local infections of the skin and subcutaneous tissue CO DEBRIDEMENT MUSCLE &/FASCIA 1ST 20 SQ CM/< Routine 12/04/2024 1:40 PM EDT 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) Localized tissue (HCC) Other specified local infections of the skin and subcutaneous tissue CO DEBRIDEMENT MUSCLE &/FASCIA EA ADDL 20 SQ CM Routine 12/04/2024 1:40 PM EDT 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) Localized tissue (HCC) Other specified local infections of the skin and subcutaneous tissue CO DEBRIDEMENT MUSCLE &/FASCIA 1ST 20 SQ CM/< Routine 12/04/2024 1:40 PM EDT 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) Localized tissue (HCC) Other specified local infections of the skin and subcutaneous tissue CO DEBRIDEMENT MUSCLE &/FASCIA EA ADDL 20 SQ CM Routine 11/27/2024 2:20 PM EDT 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) Localized tissue (HCC) Other specified local infections of the skin and subcutaneous tissue CO DEBRIDEMENT MUSCLE &/FASCIA EA ADDL 20 SQ CM Routine 11/27/2024 2:20 PM EDT 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) Localized tissue (HCC) Other specified local infections of the skin and subcutaneous tissue CO DEBRIDEMENT MUSCLE &/FASCIA 1ST 20 SQ CM/< Routine 11/27/2024 2:20 PM EDT 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) Localized tissue (HCC) Other specified local infections of the skin and subcutaneous tissue CO DEBRIDEMENT MUSCLE &/FASCIA EA ADDL 20 SQ CM Routine 11/27/2024 2:20 PM EDT 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) Localized tissue (HCC) Other specified local infections of the skin and subcutaneous tissue CO DEBRIDEMENT MUSCLE &/FASCIA EA ADDL 20 SQ CM Routine 11/27/2024 2:20 PM EDT 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) Localized tissue (HCC) Other specified local infections of the skin and subcutaneous tissue CO DEBRIDEMENT MUSCLE &/FASCIA 1ST 20 SQ CM/< Routine 11/27/2024 2:20 PM EDT 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) Localized tissue (HCC) Other specified local infections of the skin and subcutaneous tissue WOUND TREATMENT Routine 11/22/2024 5:14 PM EDT 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) CO DEBRIDEMENT MUSCLE &/FASCIA EA ADDL 20 SQ CM Routine 11/18/2024 1:10 PM EDT 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) Localized tissue (HCC) Other specified local infections of the skin and subcutaneous tissue CO DEBRIDEMENT MUSCLE &/FASCIA EA ADDL 20 SQ CM Routine 11/18/2024 1:10 PM EDT 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) Localized tissue (HCC) Other specified local infections of the skin and subcutaneous tissue CO DEBRIDEMENT MUSCLE &/FASCIA 1ST 20 SQ CM/< Routine 11/18/2024 1:10 PM EDT 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) Localized tissue (HCC) Other specified local infections of the skin and subcutaneous tissue CO DEBRIDEMENT MUSCLE &/FASCIA EA ADDL 20 SQ CM Routine 11/18/2024 1:10 PM EDT 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) Localized tissue (HCC) Other specified local infections of the skin and subcutaneous tissue CO DEBRIDEMENT MUSCLE &/FASCIA EA ADDL 20 SQ CM Routine 11/18/2024 1:10 PM EDT 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 [...] MD PROCEDURE/MINOR SURGICAL ORDERABLES Final Result * CO DEBRIDEMENT MUSCLE &/FASCIA 1ST 20 SQ CM/<, CO DEBRIDEMENT MUSCLE &/FASCIA EA ADDL 20SQ CM [...] provider verified the correct patient, procedure, equipment, field support specialist, and site/side marked as required. [...] MD PROCEDURE/MINOR SURGICAL ORDERABLES Final Result * CO DEBRIDEMENT MUSCLE &/FASCIA 1ST 20 SQ CM/<, CO DEBRIDEMENT MUSCLE &/FASCIA EA ADDL 20SQ CM, CO DEBRIDEMENT MUSCLE &/FASCIA EA ADDL 20 SQ [...] provider verified the correct patient, procedure, equipment, field support specialist, and site/side marked as required. [...] MD PROCEDURE/MINOR SURGICAL ORDERABLES Final Result * CO DEBRIDEMENT MUSCLE &/FASCIA 1ST 20 SQ CM/<, CO DEBRIDEMENT MUSCLE &/FASCIA EA ADDL 20SQ CM, CO DEBRIDEMENT MUSCLE &/FASCIA EA ADDL 20 SQ [...] provider verified the correct patient, procedure, equipment, field support specialist, and site/side marked as required. [...] NURSING PATHWAYS ORDERABL ES Final Result * CO DEBRIDEMENT MUSCLE &/FASCIA 1ST 20 SQ CM/<, CO DEBRIDEMENT MUSCLE &/FASCIA EA ADDL 20SQ CM, CO DEBRIDEMENT MUSCLE &/FASCIA EA ADDL 20 SQ [...] provider verified the correct patient, procedure, equipment, field support specialist, and site/side marked as required. [...] MD PROCEDURE/MINOR SURGICAL ORDERABLES Final Result * CO DEBRIDEMENT MUSCLE &/FASCIA 1ST 20 SQ CM/<, CO DEBRIDEMENT MUSCLE &/FASCIA EA ADDL 20SQ CM, CO DEBRIDEMENT MUSCLE &/FASCIA EA ADDL 20 SQ [...] provider verified the correct patient, procedure, equipment, field support specialist, and site/side marked as required. [...] Final Result from Last 3 Months Insurance [facility] [place] DUAL COM[place]TE [place]
--- OUTSIDE RECORDS SUMMARY | 2024-12-05 08:24 | XMS_ITS | Clinical Summary ---
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); Localized tissue (HCC); Other specified local infections of the skin and subcutaneous tissue; Diabetes mellitus with skin ulcer (HCC) 12/04/2024 Travel 12/02/2024 2:15 PM EDT Clinical Support [facility] 1 [place] [address] Jerry Monroe Jr., MD 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) 12/02/2024 Travel 11/29/2024 4:00 PM EDT Clinical Support [facility] 1 [place] [address] Jerry Monroe Jr., MD 11/27/2024 2:20 PM EDT Office Visit [facility] 1 [place] [address] Jerry Monroe Jr., MD 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); Localized tissue (HCC); Other specified local infections of the skin and subcutaneous tissue; Diabetes mellitus with skin ulcer (HCC) 11/27/2024 Travel 11/22/2024 4:15 PM EDT Clinical Support [facility] 1 [place] [address] Jerry Monroe Jr., MD 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) 11/20/2024 2:15 PM EDT Clinical Support [facility] 1 [place] [address] Jerry Monroe Jr., MD 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) 11/20/2024 Travel 11/18/2024 1:10 PM EDT Office Visit [facility] 1 [place] [address] Jerry Monroe Jr., MD Non-pressure chronic ulcer [...] [facility] 1 [place] [address] 12/09/2024 3:30 PM EDT Clinical Support [facility] 1 [place] [address] 12/11/2024 2:40 PM EDT Office Visit [facility] 1 [place] [address] Jerry Monroe Jr., MD [address] [place] [address] 12/13/2024 3:30 PM EDT Clinical Support [facility] Care [place] [address] [place] [address] 12/16/2024 3:30 PM EDT Clinical Support [facility] [place] [address] [place] [address] 12/18/2024 3:00 PM EDT Office Visit [facility] 1 [place] [address] Jerry Monroe Jr., MD [address] [place] [address] 12/20/2024 3:30 PM EDT Clinical Support [facility] Wound [facility] 1 [place] [address] Health Maintenance Due Date Last Done Comments [...] [id number] 03/27/2024 Hemoglobin A1C 11/18/2024 COVID-19 VACCINE ( season) 2024, 07/31/2020 Influenza Vaccine (#1) 2024 02/06/2021 Tobacco Cessation Counseling and Screening (12+) 12/02/2025 12/04/2024 Procedures Procedure Name Priority Date/Time Associated Diagnosis Comments MI DEBRIDEMENT MUSCLE &/FASCIA EA ADDL 20 SQ CM Routine 12/04/2024 1:40 PM EDT 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) Localized tissue (HCC) Other specified local infections of the skin and subcutaneous tissue MI DEBRIDEMENT MUSCLE &/FASCIA 1ST 20 SQ CM/< Routine 12/04/2024 1:40 PM EDT 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) Localized tissue (HCC) Other specified local infections of the skin and subcutaneous tissue MI DEBRIDEMENT MUSCLE &/FASCIA EA ADDL 20 SQ CM Routine 12/04/2024 1:40 PM EDT 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) Localized tissue (HCC) Other specified local infections of the skin and subcutaneous tissue MI DEBRIDEMENT MUSCLE &/FASCIA 1ST 20 SQ CM/< Routine 12/04/2024 1:40 PM EDT 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) Localized tissue (HCC) Other specified local infections of the skin and subcutaneous tissue MI DEBRIDEMENT MUSCLE &/FASCIA EA ADDL 20 SQ CM Routine 11/27/2024 2:20 PM EDT 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) Localized tissue (HCC) Other specified local infections of the skin and subcutaneous tissue MI DEBRIDEMENT MUSCLE &/FASCIA EA ADDL 20 SQ CM Routine 11/27/2024 2:20 PM EDT 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) Localized tissue (HCC) Other specified local infections of the skin and subcutaneous tissue MI DEBRIDEMENT MUSCLE &/FASCIA 1ST 20 SQ CM/< Routine 11/27/2024 2:20 PM EDT 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) Localized tissue (HCC) Other specified local infections of the skin and subcutaneous tissue MI DEBRIDEMENT MUSCLE &/FASCIA EA ADDL 20 SQ CM Routine 11/27/2024 2:20 PM EDT 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) Localized tissue (HCC) Other specified local infections of the skin and subcutaneous tissue MI DEBRIDEMENT MUSCLE &/FASCIA EA ADDL 20 SQ CM Routine 11/27/2024 2:20 PM EDT 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) Localized tissue (HCC) Other specified local infections of the skin and subcutaneous tissue MI DEBRIDEMENT MUSCLE &/FASCIA 1ST 20 SQ CM/< Routine 11/27/2024 2:20 PM EDT 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) Localized tissue (HCC) Other specified local infections of the skin and subcutaneous tissue WOUND TREATMENT Routine 11/22/2024 5:14 PM EDT 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) MI DEBRIDEMENT MUSCLE &/FASCIA EA ADDL 20 SQ CM Routine 11/18/2024 1:10 PM EDT 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) Localized tissue (HCC) Other specified local infections of the skin and subcutaneous tissue MI DEBRIDEMENT MUSCLE &/FASCIA EA ADDL 20 SQ CM Routine 11/18/2024 1:10 PM EDT 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) Localized tissue (HCC) Other specified local infections of the skin and subcutaneous tissue MI DEBRIDEMENT MUSCLE &/FASCIA 1ST 20 SQ CM/< Routine 11/18/2024 1:10 PM EDT 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) Localized tissue (HCC) Other specified local infections of the skin and subcutaneous tissue MI DEBRIDEMENT MUSCLE &/FASCIA EA ADDL 20 SQ CM Routine 11/18/2024 1:10 PM EDT 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) Localized tissue (HCC) Other specified local infections of the skin and subcutaneous tissue MI DEBRIDEMENT MUSCLE &/FASCIA EA ADDL 20 SQ CM Routine 11/18/2024 1:10 PM EDT 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 Debridement [...] MD PROCEDURE/MINOR SURGICAL ORDERABLES Final Result * MI DEBRIDEMENT MUSCLE &/FASCIA 1ST 20 SQ CM/<, MI DEBRIDEMENT MUSCLE &/FASCIA EA ADDL 20SQ CM [...] provider verified the correct patient, procedure, equipment, network support, and site/side marked as required. Debridement [...] MD PROCEDURE/MINOR SURGICAL ORDERABLES Final Result * MI DEBRIDEMENT MUSCLE &/FASCIA 1ST 20 SQ CM/<, MI DEBRIDEMENT MUSCLE &/FASCIA EA ADDL 20SQ CM, MI DEBRIDEMENT MUSCLE &/FASCIA EA ADDL 20 SQ [...] provider verified the correct patient, procedure, equipment, network support, and site/side marked as required. Debridement [...] MD PROCEDURE/MINOR SURGICAL ORDERABLES Final Result * MI DEBRIDEMENT MUSCLE &/FASCIA 1ST 20 SQ CM/<, MI DEBRIDEMENT MUSCLE &/FASCIA EA ADDL 20SQ CM, MI DEBRIDEMENT MUSCLE &/FASCIA EA ADDL 20 SQ [...] provider verified the correct patient, procedure, equipment, network support, and site/side marked as required. Debridement [...] NURSING PATHWAYS ORDERABL ES Final Result * MI DEBRIDEMENT MUSCLE &/FASCIA 1ST 20 SQ CM/<, MI DEBRIDEMENT MUSCLE &/FASCIA EA ADDL 20SQ CM, MI DEBRIDEMENT MUSCLE &/FASCIA EA ADDL 20 SQ [...] provider verified the correct patient, procedure, equipment, network support, and site/side marked as required. Debridement [...] MD PROCEDURE/MINOR SURGICAL ORDERABLES Final Result * MI DEBRIDEMENT MUSCLE &/FASCIA 1ST 20 SQ CM/<, MI DEBRIDEMENT MUSCLE &/FASCIA EA ADDL 20SQ CM, MI DEBRIDEMENT MUSCLE &/FASCIA EA ADDL 20 SQ [...] provider verified the correct patient, procedure, equipment, network support, and site/side marked as required. Debridement [...] Final Result from Last 3 Months Insurance [facility] ADV DUAL COMPLETE MEDICAID OF [place]
--- OUTSIDE RECORDS SUMMARY | 2024-12-05 08:24 | XMS_ITS | Encounter Summary ---
Author Organization [employer] ([place], [place], [place], [place]) Address [address] [place] [address] Care Team Providers Care Physician Specialist Name Role Phone Unavailable Primary Care [...] Description 12/06/2024 4:15 PM EDT Clinical Support [facility] Wound Care [address] [address] 12/09/2024 3:30 PM EDT Clinical Support [facility] Care [place] 1 [place] [address] 12/11/2024 2:40 PM EDT Office Visit [address] [address] Jerry Monroe Jr., MD [address] [place] [address] 12/13/2024 3:30 PM EDT Clinical Support [address] [address] 12/16/2024 3:30 PM EDT Clinical Support [address] [address] 12/18/2024 3:00 PM EDT Office Visit [facility] 1 [place] [address] Jerry Monroe Jr., MD [address] [place] [address] 12/20/2024 3:30 PM EDT Clinical Support [facility] Wound Care [place] 1 [place] [address] documented as of this encounter Visit Diagnoses Not on filedocumented in this encounter
--- OUTSIDE RECORDS SUMMARY | 2024-12-05 08:24 | XMS_ITS | Encounter Summary ---
Author Organization Healthcare Address [address] [place] [address] Care Team Providers Care Restaurant Cashier Name Role Phone Asad Victor MD Primary Care Provider + [phone] Encounter Details Date Type Department Care Team (Late st Contact Info) Description 11/05/2024 Orders Only External Location [address] [place] [address] Provider, External Social History Tobacco Use Types [...] drink first t dino in the morning (EYE-TURN OPERATOR) to steady your nerves or to get rid of a hangover? 0 10/18/2021 CAGE Questionnaire Score 0 022 Utilities Answer Date Recorded In the past 12 months has th e [employer], gas, oil, or water company threatened to [...] Description 12/13/2024 2:00 PM EDT Office Visit [facility] [address] [facility] [place] [address] Oscar Appiah MD [address] [facility] [address] [place] [address] 12/19/2024 7:30 AM EDT Appointment [facility] Vascular Lab [address] 5th Floor Wing [address], [address] [place] [address] 12/19/2024 8:00 AM EDT Appointment [facility] Vascular Lab [address] 5th Floor Wing D, [address] [place] [address] 12/19/2024 9:00 AM EDT Office Visit [facility] [address] 5th Floor Wing [address], [address] [place] [address] Nathaly Nowak MD [address] [place] [address] documented as of this encounter Goals Goal [...] documented as of this encounter Care Teams Restaurant Cashier Relationship Specialty Start Date End Date Asad Victor MD [address] [place] [address] PCP - General 10/07/22 documented as of this encounter
--- OUTSIDE RECORDS SUMMARY | 2024-12-05 08:24 | XMS_ITS | Encounter Summary ---
Author Organization [facility] Address [address] [place] [address] Care Team Providers Care Edge Stripper Name Role Phone Asad Victor MD Primary Care Provider + [phone] Encounter Details Date Type Department Care Team [...] any time in the past 12 m [facility], were you homeless or living [...] drink first t dino in the morning (EYE-BIODIESEL PLANT OPERATIONS ENGINEER) to steady your nerves or to [...] Description 12/13/2024 2:00 PM EDT Office Visit [facility] [address] [facility] [place] [address] Oscar Appiah MD [address] [facility] [address] [place] [address] 12/19/2024 7:30 AM EDT Appointment [facility] Vascular Lab [address] [facility] 5th Floor Wing D, [address] [place] [address] 12/19/2024 8:00 AM EDT Appointment [facility] Vascular Lab [address] [facility] 5th Floor Wing D, [address] [place] [address] 12/19/2024 9:00 AM EDT Office Visit [facility] [address] [facility] 5th Floor Wing D, [address] [place] [address] Nathaly oNwak MD [address] [place] [address] documented as of this encounter [...] documented as of this encounter Care Teams Edge Stripper Relationship Specialty Start Date End Date Asad Victor MD [address] [place] [address] [place]I [place] [address] PCP - General 10/07/22 documented as of this encounter
--- OUTSIDE RECORDS SUMMARY | 2024-12-05 08:25 | XMS_ITS | Encounter Summary ---
Author Organization [employer] ([place], [place], [place], [place]) Address [address] [place] [address] Care Team Providers Care Harness Cutter Name Role Phone Unavailable Primary Care [...] Description 12/06/2024 4:15 PM EDT Clinical Support [facility] Wound Care [address] [address] 12/09/2024 3:30 PM EDT Clinical Support [facility] [place] 1 [place] [address] 12/11/2024 2:40 PM EDT Office Visit [address] [address] Jerry Monroe Jr., MD [address] [place] [address] 12/13/2024 3:30 PM EDT Clinical Support [address] [address] 12/16/2024 3:30 PM EDT Clinical Support [address] [address] 12/18/2024 3:00 PM EDT Office Visit [facility] Center 1 [place] [address] Jerry Monroe Jr., MD [address] [place] [address] 12/20/2024 3:30 PM EDT Clinical Support [facility] Wound Care [place] 1 [place] [address] documented as of this encounter Visit Diagnoses Not on filedocumented in this encounter
--- OUTSIDE RECORDS SUMMARY | 2024-12-05 08:25 | XMS_ITS | Encounter Summary ---
Author Organization Healthcare Address [address] [place] [address] Care Team Providers Care Search Coordinator Name Role Phone Asad Victor MD Primary Care Provider + [phone] Encounter Details Date Type Department Care Team (Late st Contact Info) Description 11/15/2024 Clinical Support [place] [address] [place] [address] Charly Orlando, PharmD [address] [place] [address] [address] [place] [address] Social History Tobacco Use Types [...] drink first t dino in the morning (EYE-ASSEMBLER INSULATOR) to steady your nerves or to get rid of a hangover? 0 10/18/2021 CAGE Questionnaire Score 0 022 Utilities Answer Date Recorded In the past 12 months has th e [employer], gas, oil, or water company threatened to [...] Description 12/13/2024 2:00 PM EDT Office Visit [facility] [address] [facility] [place] [address] Oscar Appiah MD [address] [facility] [address] [place] [address] 12/19/2024 7:[address] [facility] Vascular Lab [address] 5th Floor Wing D, [address] [place] [address] 12/19/2024 8:[address] [facility] Vascular Lab [address] [facility] 5th Floor Wing D, [address] [place] [address] 12/19/2024 9:00 AM EDT Office Visit [facility] [address] [facility] 5th Floor Wing D, [address] [place] [address] Nathaly Nowak MD [address] [place] [address] documented as of this encounter [...] documented as of this encounter Care Teams Search Coordinator Relationship Specialty Start Date End Date Asad Victor MD [address] [place] [address] PCP - General 10/07/22 documented as of this encounter
[2024-12-05] MEDS: MICAFUNGIN SODIUM IV (08:36)
[2024-12-05] MEDS: SODIUM CHLORIDE 0.9% IV (08:36)
[2024-12-05 08:40] VITALS: BP 148/52; PULSE 51; RESP 18; O2SAT 95
[2024-12-05 09:11] LABS: Alanine Aminotransferase 28 U/L (12-78); Albumin Level 3.5 g/dl (3.5-5.0); Alkaline Phosphatase 139 U/L (38-126); Aspartate Amino Transferase 26 U/L (17-59); Bilirubin,Direct 0.0 mg/dl (0.0-0.4); Bilirubin,Indirect 0.2 mg/dL (0.0-0.9); Bilirubin,Total 0.2 mg/dl (0.2-1.3); Bilirubin,Unconjugated 0.2 mg/dL (0.0-1.1); Total Protein,Serum 6.5 g/dl (6.3-8.2)
[2024-12-05] MEDS: ERTAPENEM SODIUM 1 GM in 0.9 % SODIUM CHLORIDE 50 ML IV (09:43)
[2024-12-05 10:30] VITALS: BP 152/65; PULSE 68; RESP 18; O2SAT 94
== END 2024-12-05 10:30 | disposition home or self-care (01) ==
LOC: INF 08:02
PROVIDERS: PCP Family Medicine
DX: T14.8XXA Other injury of unspecified body region, initial encounter (principal); L08.9 Local infection of the skin and subcutaneous tissue, unspecified; X58.XXXA Exposure to other specified factors, initial encounter; Y93.9 Activity, unspecified; Y92.9 Unspecified place or not applicable
CPT/HCPCS: 80076; 96365; 96367; J1335; J2248

== ENCOUNTER 2024-12-06 08:03 | Outpatient (CLI) | payer MEDICARE, OTHER, SELFPAY ==
--- OUTSIDE RECORDS SUMMARY | 2024-10-11 10:15 | XMS_ITS | Encounter Summary ---
Author Organization [facility] Address [address] [place] [address] Care Team Providers Care Marketing Summer Intern Name Role Phone Asad Victor MD Primary Care Provider + [phone] Encounter Details Date Type Department Care Team (Latest Contact Info) Description 10/11/2024 10:15 AM EDT Pre-Admission Testing [facility]-op [facility] [address] [place] [phone] Preop testing (Primary Dx) Anesthesia Record Procedure [...] Hand; Site Prep: Chlorhexidine ; Local Anesth: [place]; Technique: Anatomical landmarks; Inserted by: CHRISTIAN Acuna; [...] G; Orientation: Right; Location: Axillary; Inserted by: DIE DESIGNER; Securement: Sutured; Patient Tolerance: Tolerated well; Removal [...] drink first t dino in the morning (EYE-PICTURE FRAME MAKER) to steady your nerves or to get [...] note 09/25/24 (media) + CAD s/p multiple OR's and 3V CABG 02/2019, 2 stents prior to CABG Atrial Fibrillation with RVR s/p CABG + carotid artery disease s/p R CEA 2016 + 3rd degree AV block SECURITY SHIFT MANAGER-P placed 08/2023 for Wenkeback with 11 sec pause + HLD + HTN - controlled + PAD 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 S/P intravascular lithotripsy of left common and external iliac artery with 2 continuous balloon mounted bare metal stents 09/12/24 on Xarelto and ASA + WILHELM occ, low energy for > year - had work-up recently in [place] (will get records) + peripheral edema LLE [...] ENDARTERECTOMY N/A 2017 Endarterectomy Carotid Artery from [facility] CORONARY ANGIOPLASTY Left Coronary Angiography With Concomitant Left Heart Catheterization from [facility] CORONARY ARTERY BYPASS GRAFT N/A 2018 3V ELBOW SURGERY Right OTHER SURGICAL HISTORY N/A Reported Prior Surgical / Procedural History from [facility] [5] No Known Allergies [6] Current Outpatient [...] card, photo ID, along with power of water main installer helper, guardianship or advanced directives if applicable [...] Description 12/13/2024 2:00 PM EDT Office Visit [facility] [address] [facility] [place] [address] Oscar Appiah MD [address] [facility] [address] [place] [address] 12/19/2024 7:30 AM EDT Appointment [facility] [address] [place] [address] 12/19/2024 8:00 AM EDT Appointment [facility] [address] [place] [address] 12/19/2024 9:00 AM EDT Office Visit [facility] [address] [place] [address] Nathaly Nowak MD [address] [place] [address] documented as of this encounter Goals Goal [...] Modality Other Narrative 10/17/2024 9:50 AM EDT [facility]: Pre-operative CIED Report Assessment and Sara-Procedural Reommendations: Name: Mono Bobby Date: 10/17/2024 : 1960 Age: 64 y.o. Patient has a [employer] Field Technician: Berger SECURITY SHIFT MANAGER-PM Remaining battery longevity adequate. Lead integrity [...] recommendations. Supporting reports can be found in [employer] file. us Emelina DOSHI CV IMPLANTABLE [...] documented as of this encounter Care Teams Marketing Summer Intern Relationship Specialty Start Date End Date Asad Victor MD [address] [place] [address] PCP - General 10/07/22 documented as of this encounter
--- OUTSIDE RECORDS SUMMARY | 2024-10-16 14:45 | XMS_ITS | Encounter Summary ---
Author Organization Healthcare Address [address] [place] [address] Care Team Providers Care Director Of It Operations Name Role Phone Asad Victor MD Primary Care Provider + [phone] Encounter Details Date Type Department Care Team (Latest Contact Info) Description 10/16/2024 2:45 PM EDT - 10/16/2024 11:59 PM EDT Hospital Encounter Cardiac Imaging [address] [place] [address] Discharge Disposition: Home or Self Care Social [...] first t dino in the morning (EYE-INSPECTOR AND HAND PACKAGER) to steady your nerves or to get [...] Description 12/13/2024 2:00 PM EDT Office Visit [facility] [address] [place] [address] Oscar Appiah MD [facility] [address] [place] [address] 12/19/2024 7:30 AM EDT Appointment [facility] Lab [address] [place] [address] 12/19/2024 8:00 AM EDT Appointment [facility] [address] [place] [address] 12/19/2024 9:00 AM EDT Office Visit [facility] [address] [place] [address] Nathaly Nowak MD [address] [facility] [address] [place] [address] documented as of this encounter Goals Goal [...] Modality Other Narrative 10/17/2024 9:50 AM EDT [facility]: Pre-operative CIED Report Assessment and Sara-Procedural Reommendations: Name: Mono Bobby Date: 10/17/2024 : 1960 Age: 64 y.o. Patient has a Mulling Machine Operator: Berger HOLE DIGGER OPERATOR-PM Remaining battery longevity adequate. Lead integrity test [...] recommendations. Supporting reports can be found in [employer] media file. 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
--- OUTSIDE RECORDS SUMMARY | 2024-10-17 06:21 | XMS_ITS | Encounter Summary ---
Author Organization [facility] Address [address] [id number] Care Team Providers Care Cream Dipper Name Role Phone Asad Victor MD Primary Care Provider [phone] Reason for Referral * Imaging (Routine) - Authorized Specialty Diagnoses / Procedures Referred By Susan t Referred To Contact Cardiology Diagnoses Critical limb ischemia of left lower extremity Pseudoaneurysm of left femoral artery (CMS/HCC) Procedures VAS US Arterial Duplex Lower Extremity Unilateral Left Terrell Gautam MD [address] [address] Phone: tel: fax: Referral ID Status Reason Start Date Expiration Date Visits Requested Visits Authorized [id number] Authorized Perform Procedure 10/19/2024 04/20/2026 1 1 * Imaging (Routine) - Authorized Specialty Diagnoses / Procedures Referred By Contac t Referred To Contact Cardiology Diagnoses Critical limb ischemia of left lower extremity Pseudoaneurysm of left femoral artery (CMS/HCC) Procedures VAS Ankle Brachial Index - Segmental Terrell Gautam MD [id number] [place] [address] Phone: tel: fax: Referral ID Status Reason Start Date Expiration Date Visits Requested Visits Authorized [id number] Authorized Perform Procedure 10/19/2024 04/20/2026 1 1 * Consultation (Routine) - Authorized Specialty Diagnoses / Procedures Referred By Contact Referred To Contact Vascular Surgery / [facility] Diagnoses Critical limb ischemia of left lower extremity Pseudoaneurysm of left femoral artery (CMS/HCC) Terrell Gautam MD [address] [place] [address] Phone: tel:[phone] fax:[phone] [facility] [address] [place] [address] 5th Floor [address] [place] [address] Phone: tel: fax: Referral ID Status Reason Start Date Expiration Date Visits Requested Visits Authorized [id number] Authorized Specialty Services Required 10/19/2024 04/20/2026 [address] Gautam, with SIL, arterial duplex Reason for Visit * Auth/Cert (Routine) Specialty Diagnoses / Procedures Referred By Susan t Referred To Contact Diagnoses Critical limb ischemia of left lower extremity Critical limb ischemia of left lower extremity [I70.222] Procedures NY VEIN BYPASS GRAFT,FEM-POP CREATION, BYPASS, ARTERIAL, FEMORAL TO POPLITEAL Terrell Gautam MD [address] [place] [address] Phone: tel: fax: [facility] A OPERATING ROOM [address] [place] [address] Phone: tel: Referral ID Status Reason Start Date Expiration Date Visits Re quested Visits Authorized [id number] 1 1 Encounter Details Date Type Department Care Team (Latest Contact Info) Description 10/17/2024 6:21 AM EDT - 10/19/2024 12:39 PM EDT Hospital Encounter [facility] H Inpatient [address] [place] [id number] Terrell Gautam MD [address] [place] [address] Pseudoaneurysm of left femoral artery (CMS/HCC) [...] any time in the past 12 m [facility], were you homeless or living in a mcc (including now)? No 10/18/2024 CAGE ASSESSMENT Answer [...] drink first t dino in the morning (EYE-CREW LEADER) to steady your nerves or to get rid of a hangover? 0 10/18/2021 CAGE Questionnaire Score 0 022 Utilities Answer Date Recorded In the past 12 months has th [employer], gas, oil, or water [employer] threatened to shut off services in your [...] provided Taken 10/17/20242107 by Jourdan Grimes II word processor technician Review/Management: medications reviewed Problem: Skin Injury Risk [...] Ongoing, Progressing Intervention: Promote Activity and Functional [place] Flowsheets (Taken 10/19/2024 1048) Self-Care Promotion: BADL personal objects within reach meal set-up provided * Yuni Ramires - Keyla Chow - 10/19/2024 11:45 AM EDT Images from the original note were not included. [id number] After Peripheral Artery Bypass Surgery: In the [...] home. Last Reviewed Date: 2023 00:00:00 ?? [id number] [employer]. All rights reserved. This information is not intended as a substitute for professional medical care. Always follow your healthcare professional's instructions. * Progress Notes - Emelina Friend - 10/19/2024 11:44 AM EDT Case Management Adult Progress Note Bev Bobby 64 y.o. male CSN: [id number] Admission: 10/17/2024 6:21 AM Primary Problem: Critical [...] if any other needs arise. Emelina Friend HOSPICE COMMUNITY LIAISON, COMPUTATIONAL SCIENCES PROFESSOR Social Work Case Management * Yuni OviJOSE MANUEL Chow Keyla - 10/19/2024 11:44 AM EDT Images from the original note were not included. [id number] Peripheral Artery Disease (PAD) Peripheral artery disease [...] cause. Last Reviewed Date: 2024 00:00:00 ?? [id number] [employer]. All rights reserved. This information is not intended as a substitute for professional medical care. Always follow your healthcare professional's instructions. * Yuni DiorNAVYA - Keyla Chow - 10/19/2024 11:44 AM EDT Images from the original note were not included. [id number] Leg Artery Emergencies: Critical Limb Ischemia (CLI) [...] appointments. Last Reviewed Date: 2023 00:00:00 ?? [id number] [employer]. All rights reserved. This information is not intended as a substitute for professional medical care. Always follow your healthcare professional's instructions. * Discharge Summary - Dandy Baltazar MD - 10/19/2024 11:31 AM EDT Hospitalization Admit Date/Time: 10/17/2024 6:21 AM Admitting Attending: Terrell Gautam Discharge Date: 10/19/24 Discharge Attending Physician: Nirmal Cueto MD PCP name and Address: Asad Victor MD (Inactive) [address] [place] [address] / [facility] [address] Referring provider name and address: Timothy Marques PA [address] [place] [address] Chief Concern, Brief History of Present Illness, and Hospital Course Bev Bobby is an 64 y.o. 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 He [...] Your Medications These medications were sent to [facility] [place], [place] - [address], [facility] [address] acetaminophen 500 MG tablet clopidogrel 75 MG [...] of water. Outpatient Follow-Up Follow up with [facility] Associated diagnoses: Balloon like swelling in an artery of the leg Critical limb ischemia of left lower extremity [address] 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 He [...] provided Taken 10/17/20242107 by Jourdan Grimes II, word processor technician Review/Management: medications reviewed Problem: Skin Injury Risk [...] Ongoing, Progressing Intervention: Promote Activity and Functional [place] Flowsheets (Taken 10/19/2024 1048) Self-Care Promotion: BADL [...] evaluation. PARTICIPANTS IN CARE Visitors Present No Child And Family Therapist (if applicable) PRESENTATION Oxygen Oxygen Therapy: None [...] Level of Mobility Ambulatory- household only Mobility [place] Independent gait with device (rollator) History of [...] numbness in rodney) BED MOBILITY Level of [place] Physical/Non- physical Assist Adaptive Equipment Utilized Rolling/ Turning Scooting/ Bridging Modified independence (anteriorly to EOB) Bed rails Supine to Sit Modified [place] (to the right) (HOB flat) Bed rails Sit to Supine Interventions HOB flat to simulate home environment TRANSFERS Level of [place] Physical/Non- physical Assist Adaptive Equipment Utilized Sit [...] stable surfaces during transitions. AMBULATION Level of [place] Distance Adaptive Equipment Utilized Ambulation Standby assist, [...] Posture: Forward head, Rounded shoulders Level of [place] Balance Support Interventions Static Sit Independent Right [...] 3-5 steps with a railing?: A little [facility] 6-Clicks Mobility Assessment Total : 22 [...] evaluation/session. Participants in Care Family/Caregiver Present: No Child And Family Therapist: Not Applicable Presentation Oxygen Therapy: None (Room [...] Level of Mobility: Ambulatory- household only Mobility [place]: Independent gait with device (rollator) History of [...] Mobility Bed Mobility Exam: Scooting/Bridging Level of [place]: Modified independence (anteriorly to EOB) Assistive Device: Bed rails Bed Mobility Exam: Supine to Sit Level of [place]: Modified [place] (to the right) Physical/Nonphysical Assist: (HOB flat) Assistive Device: Bed rails Transfers Transfer Exam: Sit to stand Level of [place]: Stand-by assist Physical/Nonphysical Assist: Supervision, Verbal Cues, Minimal cues Assistive Device: Walker, rolling Transfer Exam: Stand to Sit Level of [place]: Stand-by assist Physical/Nonphysical Assist: Supervision, Verbal Cues, [...] toileting at this time. Standardized Assessments [facility] 6-Click Daily Activities Help from Other: Don/Doff Regular Lower Body Clothings: None Help From Other: Bathing: Little Help From Other: Toileting: None Help From Other: Don/Doff Upper Body Clothings: None Help From Other: Grooming: None Help From Other: Eating Meals: None [facility] 6 Click - Daily Activities Score: 23/24 [facility] Scoring Interpretation: Scores greater than 20.5 [...] Note Bev Bobby 64 y.o. male CSN: [id number] Admission: 10/17/2024 6:21 AM Primary Problem: Critical limb ischemia of left lower extremity Supervisor Edging reviewed chart and spoke with patient to complete this Initial Case Management Assessment. PCP: Asad Victor MD (Inactive) - Dr. Palomo Preferred pharmacy is [facility] Emergency Contact: Extended Emergency Contact Information Primary Emergency Contact: Patti Hill Relation: Sister Child And Family Therapist needed? No Insurance: Primary Visit Coverage Payer Plan Sponsor Code Group Number Group Name [facility] MEDICARE [facility] MEDICARE REPLACEMENT [id number] Primary Visit Coverage Subscriber Subscriber ID Subscriber Name Subscriber N Subscriber Address [id number] BEV BOBBY [id number] [place] [address] Secondary Visit Coverage Payer Plan Sponsor Code Group Number Group Name [facility] MEDICAID [facility] Secondary Visit Coverage Subscriber Subscriber ID Subscriber Name Subscriber N Subscriber Address [id number] BEV BOBBY [id number] [place] [address] Patient information: Primary Caregiver: Self Daily Living Activities: Functional Status: Independent Living Arrangements: Alone Type of Residence: Private residence, Single Level [address] [place] [address] Current DME: Equipment Currently Used at Home: walker, rollator Income Information: Income Source: Retired Income/Expense Information: Income meets expenses Current Resources Utilized: Food [place] Housing Circumstances-Z Codes: Housing Circumstances (select all [...] Dialysis Services: None. Living Will/Advance Directive/Power of Religious Education Director /Guardian: Denied. Additional Comments: Patient is not medically ready for discharge. SW will continue to follow. Mariia Macedo COMPUTATIONAL SCIENCES PROFESSOR * Care Plan - Emilia Alonso RN [...] from the original note were not included. [facility] Department of Surgery Division of [...] Progressive Level Care Bill Arellano Cosigned by iNrmal Cueto MD at 10/18/2024 10:16 AM EDT [...] Agree with above assessment and evaluation from resident/CRAB FISHERMAN. * Op Note - Terrell Gautam MD - 10/17/2024 8:52 AM EDT Operative Note Date: 10/17/24 Location: [facility] Name: Bev Bobby, : 1960, Diagnoses: Pre-op Diagnosis Critical limb ischemia of left lower extremity Common femoral artery pseudoaneurysm Post-op Diagnosis Critical limb ischemia of left lower extremity Common femoral artery pseudoaneurysm Procedure(s): Left common/superficial/profunda femoral thromboendarterectomy with bovine patch repair Left external iliac artery/FISH FILLETER stent Attending Surgeon(s): * Terrell Gautam - Primary Senior Patrol Agent(s): * Luna Beckett MD - Resident - [...] Necessity Reasons Recent surgery contiguous with urinary tract/LOSS PREVENTION AND SAFETY MANAGER/colorectal 10/17/24 190 Output (mL) 50 mL 10/18/24 08 Implants Type Name Action Serial No. VASCUGUARD 8 X 8 - [id number] Implanted STENT ENDOPROSTHESIS VIABAHN 9FR [id number] - [id number] Implanted [id number] Specimen: Specimens ID Source Frozen? 1 Other [...] and distal control. We then proceeded with yxsmf-yuv-lqml exposure of the popliteal artery. A medial [...] balloon dilated thestent with a 9 mm Dexter. We closed the arteriotomy with a single [...] 10/17/2024 8:52 AM EDT Date: 10/17/24 Location: [facility] Name: Bev Perez Kanu, : 1960, Diagnoses: Pre-op Diagnosis Critical limb ischemia of left lower extremity Common femoral artery pseudoaneurysm Post-op Diagnosis Critical limb ischemia of left lower extremity Common femoral artery pseudoaneurysm Procedure(s): Left common/superficial/profunda femoral thromboendarterectomy with bovine patch repair Left external iliac artery/FISH FILLETER stent Attending Surgeon(s): * Terrell Gautam - Primary Senior Patrol Agent(s): * Luna Beckett MD - Resident - Assisting * Dandy Baltazar MD - Fellow Anesthesia: General ASA: III Blood Administration: Blood Product Administration History None Estimated Blood Loss: 300 mL Drains: Urethral Catheter Temperature probe 16 Fr. (Active) Implants Type Name Action Serial No. VASCUGUARD 8 X 8 - [id number] Implanted STENT ENDOPROSTHESIS VIABAHN 9FR [id number] - [id number] Implanted [id number] Specimen: Specimens ID Source Frozen? 1 Other [...] issues. 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 He previouslyunderwent thrombin injection. He reports pain in his calves. He presents today for scheduled left lower extremity femoral to ogiwu-vuj-wkcf popliteal bypass. Planned likely use PTFE. He [...] 16. Results Review {Vanishing Link Review Results :[id number] I have reviewed the latest lab and imaging results. Assessment & Plan Critical limb ischemia of left lower extremity Proceed with scheduled surgery left lower extremity femoral to ydyto-qfe-cilq popliteal artery bypass graft. Extensive discussion had [...] Description 12/13/2024 2:00 PM EDT Office Visit [facility] [address] [place] [address] Oscar Appiah MD [address] [facility] [address] [place] [address] 12/19/2024 7:[address] [facility] [address] [facility] 5th Floor [address] [place] [address] 12/19/2024 8:[address] [facility] [address] [place] [address] 12/19/2024 9:00 AM EDT Office Visit [facility] [address] [place] [address] Nathaly Nowak MD [address] [place] [address] Pending Results Name Type Priority [...] PREPARE RBC STAT 10/17/2024 8:06 AM EDT NY VEIN BYPASS GRAFT,FEM-POP 10/17/2024 7:38 AM EDT [...] Comment 10/19/2024 11:42 AM EDT HEALTHCARE LAB Ethics Instructor ID KamranJob 10/20/19 11:42 AM EDT [employer] [facility] Device ID [id number] 10/19/2024 11:42 AM EDT [facility] Specimen Type POC Capillary 10/19/2024 11:42 AM EDT [facility] Blood Capillary blood specimen / Unknown 10/19/2024 11:40 AM EDT 10/19/2024 11:42 AM EDT us Terrell Gautam MD LAB POINT OF CARE TE ST DOCKED DEVICE UNSOLICITED RESULTS Final Result Performing Organization Address City/State/[facility] Co de Phone Number HEALTHCARE LAB [address] [place] [phone] * (ABNORMAL) Protime-INR (10/19/2024 8:25 AM EDT) [...] INR 2.5 to 3.5 Prevention of recurrent [place] INR 2.5 to 3.5 Nirmal Cueto MD LAB BLOOD ORDERABLES Final Result Performing Organization Address City/[facility]/ZIP Co de Phone Number [facility] [address] [place] [address] * (ABNORMAL) Phosphorus (10/19/2024 8:25 AM EDT) Phosphorus, Plasma 2.2(L) 2.5 - 4.5 mg/dL 10/19/2024 9:12 AM EDT [facility] Blood Venous blood specimen / Unknown Venipuncture / Unknown 10/19/2024 8:25 AM EDT 10/19/2024 8:43 AM EDT Nirmal Cueto MD LAB BLOOD ORDERABLES Final Result Performing Organization Address City/[facility]/ZIP Co de Phone Number [facility] [address] [place] [address] * Magnesium (10/19/2024 8:25 AM EDT) Magnesium, Plasma 2.1 1.9 - 2.4 mg/dL 10/19/2024 9:12 AM EDT [facility] Blood Venous blood specimen / Unknown Venipuncture / Unknown 10/19/2024 8:25 AM EDT 10/19/2024 8:43 AM EDT Nirmal Cueto MD LAB BLOOD ORDERABLES Final Result Performing Organization Address City/[facility]/ZIP Co de Phone Number [facility] [address] [place] [address] * (ABNORMAL) Basic metabolic panel (10/19/2024 8:25 [...] Result [facility] [address] [place] [address] * (ABNORMAL) CBC W/O Differential (10/19/2024 8:25 [...] Final Result [facility] [address] [place] [address] * (ABNORMAL) POCT glucose meter (10/19/2024 7:35 AM EDT) Pathologist [facility] POCT Glucose 187(H) 74 - 99 mg/dL [...] Comment 10/19/2024 7:37 AM EDT HEALTHCARE LAB Ethics Instructor ID Job Andrew 10/20/19 7:37 AM EDT HEALTHCARE LAB Device ID [id number] 10/19/2024 7:37 AM EDT HEALTHCARE LAB Specimen Type POC Capillary 10/19/2024 7:37 AM EDT HEALTH[facility]ARE LAB Blood Capillary blood specimen / Unknown 10/19/2024 7:35 AM EDT 10/19/2024 7:37 AM EDT us Terrell Gautam MD LAB POINT OF CARE TE ST DOCKED DEVICE UNSOLICITED RESULTS Final Result Performing Organization Address City/State/[facility] Co de Phone Number [facility] [address] [place] [address] * (ABNORMAL) POCT glucose meter (10/18/2024 7:22 PM EDT) [facility] POCT Glucose 178(H) 74 - 99 mg/dL [...] 10/18/2024 7:24 PM EDT [facility] Ethics Instructor ID Mahesh Aldana 10/18/2024 7:24 PM EDT [facility] Device ID [id number] 10/18/2024 7:24 PM EDT HEALTHCARE LAB Specimen Type POC Capillary 10/18/2024 7:24 PM EDT [facility] Blood Capillary blood specimen / Unknown 10/18/2024 7:22 PM EDT 10/18/2024 7:24 PM EDT Terrell Gautam MD LAB POINT OF CARE TE ST DOCKED DEVICE UNSOLICITED RESULTS Final Result Performing Organization Address City/[facility]/ZIP Co de Phone Number [facility]ALTHCARE LAB [address] [place] [address] * (ABNORMAL) POCT glucose meter (10/18/2024 6:07 [...] Comment 10/18/2024 6:09 PM EDT HEALTHCARE LAB Ethics Instructor ID David Parks 10/18/2024 6:09 PM EDT [facility] Device ID [id number] 10/18/2024 6:09 PM EDT [facility] Specimen Type POC Capillary 10/18/2024 6:09 PM EDT [facility] Blood Capillary blood specimen / Unknown 10/18/2024 6:07 PM EDT 10/18/2024 6:09 PM EDT us Terrell Gautam MD LAB POINT OF CARE TE ST DOCKED DEVICE UNSOLICITED RESULTS Final Result [facility] [address] [place] [address] * (ABNORMAL) POCT glucose meter (10/18/2024 11:56 [...] Comment 10/21/2024 7:42 AM EDT HEALTHCARE LAB Ethics Instructor ID Venessa Marcano 10/21/2024 7:42 AM EDT HEALTHCARE LAB Device ID [id number] 10/21/2024 7:42 AM EDT HEALTHCARE LAB Specimen Type POC Capillary 10/21/2024 7:42 AM EDT HEALTHCARE LAB Blood Capillary blood specimen / Unknown 10/18/2024 11:56 AM EDT 10/21/2024 7:42 AM EDT us Terrell Gautam MD LAB POINT OF CARE TE ST DOCKED DEVICE UNSOLICITED RESULTS Final Result Performing Organization Address City/State/[facility] de Phone Number HEALTHCARE LAB [address] [place] [address] * (ABNORMAL) POCT glucose meter (10/18/2024 9:24 [...] Comment 10/21/2024 7:42 AM EDT HEALTHCARE LAB Ethics Instructor ID Emilia Alonso 7:42 AM EDT HEALTHCARE LAB Device ID [id number] 10/21/2024 7:42 AM EDT HEALTHCARE LAB Specimen Type POC Venous 10/21/2024 7:42 AM EDT HEALTHCARE LAB Blood Venous blood specimen / Unknown 10/18/2024 9:24 AM EDT 10/21/2024 7:42 AM EDT us Terrell Gautam MD LAB POINT OF CARE TE ST DOCKED DEVICE UNSOLICITED RESULTS Final Result [facility]ARE [facility] [address] [place] [address] * (ABNORMAL) POCT glucose meter (10/18/2024 7:36 AM EDT) [facility] POCT Glucose 215(H) 74 - 99 mg/dL [...] for testing. Comment 10/18/2024 7:38 AM EDT [employer] [facility] Ethics Instructor ID Kizzy Godfrey 025 7:38 AM EDT HEALTHCARE LAB Device ID [id number] 10/18/2024 7:38 AM EDT [facility] Specimen Type POC Capillary 10/18/2024 7:38 AM EDT [facility] Blood Capillary blood specimen / Unknown 10/18/2024 7:36 AM EDT 10/18/2024 7:38 AM EDT Terrell Gautam MD LAB POINT OF CARE TE ST DOCKED DEVICE UNSOLICITED RESULTS Final Result [facility]ALTHCARE LAB [address] [place] [address] * (ABNORMAL) CBC (10/18/2024 2:09 AM EDT) [facility] WBC Count 16.71(H) 3.70 - 10.30 10*3/uL [...] Final Result [facility] [address] [place] [address] * (ABNORMAL) Basic metabolic panel (10/18/2024 2:09 AM EDT) Pathologist [facility] Glucose, Plasma 206(H) 74 - 99 mg/dL [...] Result [facility] [address] [place] [address] * (ABNORMAL) Magnesium (10/18/2024 2:09 AM EDT) Magnesium, Plasma 1.8(L) 1.9 - 2.4 mg/dL 10/18/2024 2:53 AM EDT [facility] Blood Venous blood specimen / Unknown Venipuncture / Unknown 10/18/2024 2:09 AM EDT 10/18/2024 2:25 AM EDT Nirmal Cueto MD LAB BLOOD ORDERABLES Final Result [facility] [address] [place] [address] * Phosphorus (10/18/2024 2:09 AM EDT) Phosphorus, Plasma 3.7 2.5 - 4.5 mg/dL 10/18/2024 2:53 AM EDT [facility] Blood Venous blood specimen / Unknown Venipuncture / Unknown 10/18/2024 2:09 AM EDT 10/18/2024 2:25 AM EDT Nirmal Cueto MD LAB BLOOD ORDERABLES Final Result Performing Organization Address City/[facility]/ZIP Co de Phone Number [facility] [address] [place] [address] * (ABNORMAL) Protime-INR (10/18/2024 2:09 AM EDT) [...] INR 2.5 to 3.5 Prevention of recurrent [place] INR 2.5 to 3.5 us Nirmal Cueto MD LAB BLOOD ORDERABLES Final Result Performing Organization Address City/[facility]/ZIP Co de Phone Number [facility] [address] [place] [address] * (ABNORMAL) POCT glucose meter (10/18/2024 2:08 AM EDT) [facility] POCT Glucose 202(H) 74 - 99 mg/dL [...] Comment 10/18/2024 2:10 AM EDT HEALTHCARE LAB Ethics Instructor ID Jourdan Grimes II 10/18/2024 2:10 AM EDT HEALTHCARE LAB Device ID [id number] 10/18/2024 2:10 AM EDT HEALTHCARE LAB Specimen Type POC Capillary 10/18/2024 2:10 AM EDT HEALTHCARE LAB Blood Capillary blood specimen / Unknown 10/18/2024 2:08 AM EDT 10/18/2024 2:10 AM EDT us Terrell Gautam MD LAB POINT OF CARE TE ST DOCKED DEVICE UNSOLICITED RESULTS Final Result Performing Organization Address City/State/[facility] Co de Phone Number HEALTHCARE LAB [address] [place] [address] * (ABNORMAL) POCT glucose meter (10/17/2024 10:07 PM EDT) [facility] POCT Glucose 300(H) 74 - 99 mg/dL [...] Comment 10/17/2024 10:10 PM EDT HEALTHCARE LAB Ethics Instructor ID Jourdan Grimes II 10/17/2024 10:10 PM EDT HEALTHCARE LAB Device ID [id number] 10/17/2024 10:10 PM EDT [facility] Specimen Type POC Capillary 10/17/2024 10:10 PM EDT HEALTHCARE LAB Blood Capillary blood specimen / Unknown 10/17/2024 10:07 PM EDT 10/17/2024 10:10 PM EDT Terrell Gautam MD LAB POINT OF CARE TE ST DOCKED DEVICE UNSOLICITED RESULTS Final Result Performing Organization Address City/[facility] de Phone Number HEALTHCARE LAB [address] [place] [address] * (ABNORMAL) POCT glucose meter (10/17/2024 8:07 [...] Comment 10/17/2024 8:10 PM EDT HEALTHCARE LAB Ethics Instructor ID Jourdan Grimes II 10/17/2024 8:10 PM EDT HEALTHCARE LAB Device ID [id number] 10/17/2024 8:10 PM EDT HEALTHCARE LAB Specimen Type POC Capillary 10/17/2024 8:10 PM EDT [facility] Blood Capillary blood specimen / Unknown 10/17/2024 8:07 PM EDT 10/17/2024 8:10 PM EDT Terrell Gautam MD LAB POINT OF CARE TE ST DOCKED DEVICE UNSOLICITED RESULTS Final Result Performing Organization Address City/[facility]/ZIP Co de Phone Number [facility] [address] [place] [address] * (ABNORMAL) POCT glucose meter (10/17/2024 4:01 [...] Comment 10/17/2024 4:03 PM EDT HEALTHCARE LAB Ethics Instructor ID Keisha Waller 10/17/2024 4:03 PM EDT HEALTHCARE LAB Device ID [id number] 10/17/2024 4:03 PM EDT HEALTHCARE LAB Specimen Type POC Capillary 10/17/2024 4:03 PM EDT HEALTHCARE LAB Blood Capillary blood specimen / Unknown 10/17/2024 4:01 PM EDT 10/17/2024 4:03 PM EDT us Terrell Gautam MD LAB POINT OF CARE TE ST DOCKED DEVICE UNSOLICITED RESULTS Final Result Performing Organization Address City/State/[facility] Co de Phone Number HEALTHCARE LAB [address] [place] [address] * (ABNORMAL) POCT glucose meter (10/17/2024 1:25 PM EDT) [facility] POCT Glucose 225(H) 74 - 99 mg/dL [...] 10/17/2024 1:27 PM EDT [facility] Ethics Instructor ID Kizzy Godfrey 025 1:27 PM EDT HEALTHCARE LAB Device ID [id number] 10/17/2024 1:27 PM EDT HEALTHCARE LAB Specimen Type POC Capillary 10/17/2024 1:27 PM EDT HEALTHCARE LAB Blood Capillary blood specimen / Unknown 10/17/2024 1:25 PM EDT 10/17/2024 1:27 PM EDT us Terrell Gautam MD LAB POINT OF CARE TE ST DOCKED DEVICE UNSOLICITED RESULTS Final Result Performing Organization Address City/[facility]/ZIP Co de Phone Number HEALTHCARE LAB [address] [place] [address] * [place] Less than 1 Hour Intraoperative (10/17/2024 1:18 PM EDT) Narrative IMAGING - 10/17/2024 2:05 PM EDT Images were obtained for surgical purposes. See Terrell Gautam's surgical note in the patient's chart for the findings. Terrell Gautam MD IMG FLUOROSCOPY PROCEDURES Fi nal Result Performing Organization Address [facility] Co de Phone Number IMAGING * POCT ACT (10/17/2024 12:23 PM EDT) ACT+ (HIGH RANGE) 211 68 - 600 Seconds 10/29/2024 7:28 AM EDT HEALTHCARE LAB Ethics Instructor ID Donna Mcmillan 10/29/2024 7:28 AM EDT HEALTHCARE LAB ACT Device ID [id number] 10/29/2024 7:28 AM EDT HEALTHCARE LAB Comment [...] UNSOLICITED RESULTS Final Result Performing Organization Address [facility] Co de Phone Number [facility] [address] [place], [place] [id number] [place] [address] LAB [address] [place] [address] * (ABNORMAL) Blood gas, arterial (10/17/2024 11:48 [...] Re sult [facility] [address] [place] [address] * POCT ACT (10/17/2024 11:41 AM EDT) ACT+ (HIGH RANGE) 175 68 - 600 Seconds 10/29/2024 7:28 AM EDT HEALTHCARE LAB Ethics Instructor ID Oneyda Alicea 10/29/2024 7:28 AM EDT HEALTHCARE LAB ACT Device ID [id number] 10/29/2024 7:28 AM EDT HEALTHCARE LAB Comment [...] DEVICE UNSOLICITED RESULTS Final Result [facility] [address] LAB [address] [place] [address] * POCT ACT (10/17/2024 11:11 AM EDT) ACT+ (HIGH RANGE) 252 68 - 600 Seconds 10/29/2024 7:28 AM EDT HEALTHCARE LAB Ethics Instructor ID Donna Mcmillan 10/29/2024 7:28 AM EDT HEALTHCARE LAB ACT Device ID [id number] 10/29/2024 7:28 AM EDT HEALTHCARE LAB Comment [...] DOCKED DEVICE UNSOLICITED RESULTS Final Result [facility] [address] LAB [address] [place] [address] * (ABNORMAL) Blood gas, arterial (10/17/2024 10:46 [...] Re sult [facility] [address] [place] [address] * POCT ACT (10/17/2024 10:37 AM EDT) ACT+ (HIGH RANGE) 206 68 - 600 Seconds 10/29/2024 7:28 AM EDT [facility] Ethics Instructor ID Donna Mcmillan 10/29/2024 7:28 AM EDT [facility] ACT Device ID [id number] 10/29/2024 7:28 AM EDT [facility] Comment 10/29/2024 7:28 AM EDT [...] DEVICE UNSOLICITED RESULTS Final Result [facility] [address] LAB [address] [place] [address] * Surgical Pathology Exam (10/17/2024 10:27 AM EDT) Case Report Surgical Pathology Case: [id number] Authorizing Provider: Terrell Gautam MD Collected: 10/17/2024 1027 Ordering Location: [facility] A OPERATING ROOM Received: 10/17/2024 1325 Pathologist: [...] cm. The specimen is serially sectioned and business center representative sections are submitted in cassette A1. [...] grimaldo Result [facility] [address] [place] [address] * POCT ACT (10/17/2024 10:03 AM EDT) ACT+ (HIGH RANGE) 244 68 - 600 Seconds 10/29/2024 7:28 AM EDT HEALTHCARE LAB Ethics Instructor ID Donna Mcmillan Maya 10/29/2024 7:28 AM EDT HEALTHCARE LAB ACT Device ID [id number] 10/29/2024 7:28 AM EDT [facility] [...] DEVICE UNSOLICITED RESULTS Final Result [facility] [address] LAB [address] [place] [address] * (ABNORMAL) Blood gas, arterial (10/17/2024 9:45 [...] Re sult [facility] [address] [place] [address] * (ABNORMAL) Blood gas, arterial (10/17/2024 8:47 [...] AM EDT us Jenna Lopez [facility] LAB BLOOD ORDERABLES Final Re sult [facility] [address] [place] [address] * POCT ACT (10/17/2024 8:46 AM EDT) ACT+ (HIGH RANGE) 101 68 - 600 Seconds 10/29/2024 7:28 AM EDT HEALTHCARE LAB Ethics Instructor ID Donna Mcmillan Maya 10/29/2024 7:28 AM EDT HEALTHCARE LAB ACT Device ID [id number] 10/29/2024 7:28 AM EDT HEALTHCARE LAB Comment [...] UNSOLICITED RESULTS Final Result Performing Organization Address [facility] Co de Phone Number HEALTHCARE LAB [address] LAB [address] [place] [address] * Type and Screen (10/17/2024 7:19 AM EDT) Pathologist [facility] ABO/Rh A Negative 10/17/2024 7:04 AM EDT BLOOD BANK Antibody Screen Negative 10/17/2024 7:04 AM EDT BLOOD BANK Specimen Expiration 10/20/2024 23:59 10/17/2024 7:04 AM EDT BLOOD BANK Blood Venous blood specimen / Unknown Venipuncture / Unknown 10/17/2024 7:19 AM EDT 10/17/2024 7:28 AM EDT us Maria Fernanda Mccallum MD LAB BLOOD BANK TEST ORDERAB LES Final Result Performing Organization Address [facility] de Phone Number BLOOD BANK [address] [place] [address] * (ABNORMAL) POCT glucose meter (10/17/2024 6:44 AM EDT) [facility] POCT Glucose 178(H) 74 - 99 mg/dL [...] 10/17/2024 6:49 AM EDT [facility] Ethics Instructor ID Hunter Burroughs 10/18/19 6:49 AM EDT [facility] Device ID [id number] 10/17/2024 6:49 AM EDT HEALTHCARE LAB Specimen Type POC Capillary 10/17/2024 6:49 AM EDT HEALTHCARE LAB Blood Capillary blood specimen / Unknown 10/17/2024 6:44 AM EDT 10/17/2024 6:49 AM EDT Terrell Gautam MD LAB POINT OF CARE TE ST DOCKED DEVICE UNSOLICITED RESULTS Final Result HEALTHCARE LAB [address] [place] [address] documented in this encounter Visit Diagnoses Diagnosis [...] Oral, Every 4 hours PRN, Starting on Yadria 10/17/24 at 1308, Until 10/19/24 at 1439, [...] documented as of this encounter Care Teams Cream Dipper Relationship Specialty Start Date End Date Asad Victor MD [address] [place] [id number] PCP - General 10/07/22 documented as of this encounter
--- OUTSIDE RECORDS SUMMARY | 2024-10-17 07:51 | XMS_ITS | Encounter Summary ---
Author Organization [facility] Address [address] [id number] Care Team Providers Care Jump Iron Machine Presser Name Role Phone Asad Victor MD Primary Care Provider + [phone] Reason for Visit * Auth/Cert (Routine) Specialty Diagnoses / Procedures Referred By Contac t Referred To Contact Diagnoses Critical limb ischemia of left lower extremity Critical limb ischemia of left lower extremity [I70.222] Procedures [place] VEIN BYPASS GRAFT,FEM-POP CREATION, BYPASS, ARTERIAL, FEMORAL TO POPLITEAL Terrell Gautam MD [address] [facility] [address] [place] [address] Phone: tel: fax: PAV A OPERATING ROOM [address] [place] [address] Phone: tel: Referral ID Status Reason Start Date Expiration Date Visits Re quested Visits Authorized [id number] 1 1 Encounter Details Date Type Department Care Team (Late st Contact Info) Description 10/17/2024 7:51 AM EDT Anesthesia Event [facility]PERATING ROOM [address] [place] [phone] Maria Fernanda Mccallum MD [address] [place] [address] Anesthesia Record Procedure Summary Procedure [...] Hand; Site Prep: Chlorhexidine ; Local Anesth: [place]; Technique: Anatomical landmarks; Inserted by: CHRISTIAN Acuna; [...] any time in the past 12 m [facility], were you homeless or living [...] drink first t dino in the morning (EYE-AGRICULTURE INSPECTOR) to steady your nerves or to [...] * Anesthesia Postprocedure Evaluation - Jenna Lopez, ROADING ENGINEER - 10/17/2024 1:29 PM EDT Patient: [...] by Swetha Villareal MD Staffing Performed: ISH ROADING ENGINEER: Jenna Lopez CRNA * Anesthesia Procedure Notes - Jenna Lopez CRNA - 10/17/2024 9:00 AM EDT Associated Order(s): Airway Airway Date/Time: 10/17/2024 8:03 AM Reason: elective Airway not difficult General Information and Staff Patient location during procedure: [place] ROADING ENGINEER: Jenna Lopez CRNA Performed: ROADING ENGINEER Patient Condition Indications for airway management: [...] note 09/25/24 (media) + CAD s/p multiple LA's and 3V CABG 02/2019, 2 stents prior to CABG Atrial Fibrillation with RVR s/p CABG + carotid artery disease s/p R CEA 2016 + 3rd degree AV block TREE SHEAR OPERATOR-P placed 08/2023 for Wenkeback with 11 sec pause + HLD + HTN - controlled + PAD 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 CORONARY ANGIOPLASTY Left Coronary Angiography With Concomitant Left Heart Catheterization from [place] ??? CORONARY ARTERY BYPASS GRAFT N/A 2018 [...] Office Visit [facility] [address] [place] [address] Oscar Appiah MD [address] [facility] [address] [place] [address] 12/19/2024 7:30 AM EDT Appointment [facility] [address] [place] [address] 12/19/2024 8:00 AM EDT Appointment [facility] [address] [place] [address] [address] [place] [address] 12/19/2024 9:00 AM EDT Office Visit [facility] [address] [place] [address] [address] [place] [address] Nathaly Nowak MD [address] [place] [address] [address] [place] [address] documented as of this encounter Goals Goal [...] Performed by Swetha Villareal MD Staffing Performed: ROADING ENGINEER ROADING ENGINEER: Jenna Lopez CRNA Maria Fernanda Mccallum MD ANESTHESIA ORDERABLES Edite d Result - Final * [place] AN ELECTIVE ENDOTRACHEAL AIRWAY, PB ANESTHESIA PLACEHOLDER (10/17/2024 8:03 AM EDT) Narrative Jenna Lopez CRNA - 10/17/2024 8:03 AM EDT Jenna Lopez CRNA 10/17/2024 9:00 AM Airway Date/Time: 10/17/2024 8:03 AM Reason: elective Airway not difficult General Information and Staff Patient location during procedure: [place] ROADING ENGINEER: Jenna Lopez CRNA Performed: ISH Patient Condition [...] Trace AR. The images were Saved in [employer]. The study was technically adequate. Comments: I [...] documented as of this encounter Care Teams Jump Iron Machine Presser Relationship Specialty Start Date End Date Asad Victor MD [address] [place] [address] PCP - General 10/07/22 documented as of this encounter
--- OUTSIDE RECORDS SUMMARY | 2024-10-17 08:00 | XMS_ITS | Encounter Summary ---
Author Organization [facility] Address [address] [place] [address] Care Team Providers Care Chemical Dependency Professional Name Role Phone Asad Victor MD Primary Care Provider + [phone] Reason for Visit * Auth/Cert (Routine) Specialty Diagnoses / Procedures Referred By Contac t Referred To Contact Diagnoses Critical limb ischemia of left lower extremity Critical limb ischemia of left lower extremity [I70.222] Procedures VA VEIN BYPASS GRAFT,FEM-POP CREATION, BYPASS, ARTERIAL, FEMORAL TO POPLITEAL Terrell Gautam MD [address] [address] Phone: tel: fax: [facility] [address] [place] [address] Phone: tel: Referral ID Status Reason Start Date Expiration Date Visits Re quested Visits Authorized [id number] 1 1 Encounter Details Date Type Department Care Team (Late st Contact Info) Description 10/17/2024 8:00 AM EDT - 10/17/2024 2:50 PM EDT Surgery [facility] [address] [place] [address] Terrell Gautam MD [address] [address] CREATION, BYPASS, ARTERIAL, FEMORAL TO POPLITEAL [89847 (CPT )] Surgery Details Date/Time Status Location [...] time in the past 12 m [facility], were you homeless or living in [...] drink first t dino in the morning (EYE-POLICE RECORDS CLERK) to steady your nerves or to get rid of a hangover? 0 10/18/2021 CAGE Questionnaire Score 0 022 Utilities Answer Date Recorded In the past 12 months has th e Artimi, gas, oil, or water ev-social threatened to shut off services in your [...] provided Taken 10/17/20242107 by Jourdan Grimes II, senior accounting associate Review/Management: medications reviewed Problem: Skin Injury [...] Ongoing, Progressing Intervention: Promote Activity and Functional [place] Flowsheets (Taken 10/19/2024 1048) Self-Care Promotion: BADL personal objects within reach meal set-up provided * Yuni Ramires - Keyla Chow - 10/19/2024 11:45 AM EDT Images from the original note were not included. [id number] After Peripheral Artery Bypass Surgery: In the [...] home. Last Reviewed Date: 2023 00:00:00 ?? [id number] [employer]. All rights reserved. This information is not intended as a substitute for professional medical care. Always follow your healthcare professional's instructions. * Progress Notes - Emelina Friend - 10/19/2024 11:44 AM EDT Case Management Adult Progress Note Bev Bobby 64 y.o. male CSN: [id number] Admission: 10/17/2024 6:21 AM Primary Problem: Critical [...] if any other needs arise. Emelina Friend CONDUCTOR SLEEPING CAR, HEAD MIXER Social Work Case Management * Yuni Ramires - Keyla Chow - 10/19/2024 11:44 AM EDT Images from the original note were not included. [id number] Peripheral Artery Disease (PAD) Peripheral artery disease [...] cause. Last Reviewed Date: 2024 00:00:00 ?? [id number] [employer]. All rights reserved. This information is not intended as a substitute for professional medical care. Always follow your healthcare professional's instructions. * Yuni Ramires - Keyla Chow - 10/19/2024 11:44 AM EDT Images from the original note were not included. [id number] Leg Artery Emergencies: Critical Limb Ischemia (CLI) [...] appointments. Last Reviewed Date: 2023 00:00:00 ?? 2634-2263 [employer]. All rights reserved. This information is not intended as a substitute for professional medical care. Always follow your healthcare professional's instructions. * Discharge Summary - Dandy Baltazar MD - 10/19/2024 11:31 AM EDT Hospitalization Admit Date/Time: 10/17/2024 6:21 AM Admitting Attending: Terrell Gautam Discharge Date: 10/19/24 Discharge Attending Physician: Nirmal Cueto MD PCP name and Address: Asad Vitcor MD (Inactive) [address] [facility] [address] Referring provider name and address: Timothy Marques PA [address] [place] [address] Chief Concern, Brief History of Present Illness, and Hospital Course Bev Bobby is an 64 y.o. 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 [...] Your Medications These medications were sent to [facility] [place], [place] - [address] 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 [...] provided Taken 10/17/20242107 by Jourdan Grimes II senior accounting associate Review/Management: medications reviewed Problem: Skin Injury [...] Ongoing, Progressing Intervention: Promote Activity and Functional [place] Flowsheets (Taken 10/19/2024 1048) Self-Care Promotion: BADL [...] evaluation. PARTICIPANTS IN CARE Visitors Present No Research Administrator (if applicable) PRESENTATION Oxygen Oxygen Therapy: None [...] Level of Mobility Ambulatory- household only Mobility [place] Independent gait with device (rollator) History of [...] numbness in rodney) BED MOBILITY Level of [place] Physical/Non- physical Assist Adaptive Equipment Utilized Rolling/ Turning Scooting/ Bridging Modified independence (anteriorly to EOB) Bed rails Supine to Sit Modified [place] (to the right) (HOB flat) Bed rails Sit to Supine Interventions HOB flat to simulate home environment TRANSFERS Level of [place] Physical/Non- physical Assist Adaptive Equipment Utilized Sit [...] stable surfaces during transitions. AMBULATION Level of [place] Distance Adaptive Equipment Utilized Ambulation Standby assist, [...] Posture: Forward head, Rounded shoulders Level of [place] Balance Support Interventions Static Sit Independent Right [...] Assessments Standardized Assessments: AMPA 6-Clicks Mobility Assessment [facility] 6-Clicks Mobility Assessment Difficulty patient [...] steps with a railing?: A little [facility] 6-Clicks Mobility Assessment Total : [...] evaluation/session. Participants in Care Family/Caregiver Present: No Research Administrator: Not Applicable Presentation Oxygen Therapy: None (Room [...] Level of Mobility: Ambulatory- household only Mobility [place]: Independent gait with device (rollator) History of [...] Mobility Bed Mobility Exam: Scooting/Bridging Level of [place]: Modified independence (anteriorly to EOB) Assistive Device: Bed rails Bed Mobility Exam: Supine to Sit Level of [place]: Modified [place] (to the right) Physical/Nonphysical Assist: (HOB flat) Assistive Device: Bed rails Transfers Transfer Exam: Sit to stand Level of [place]: Stand-by assist Physical/Nonphysical Assist: Supervision, Verbal Cues, Minimal cues Assistive Device: Walker, rolling Transfer Exam: Stand to Sit Level of [place]: Stand-by assist Physical/Nonphysical Assist: Supervision, Verbal Cues, [...] regarding toileting at this time. Standardized Assessments [facility] 6-Click Daily Activities Help from Other: Don/Doff Regular Lower Body Clothings: None Help From Other: Bathing: Little Help From Other: Toileting: None Help From Other: Don/Doff Upper Body Clothings: None Help From Other: Grooming: None Help From Other: Eating Meals: None [facility] 6 Click - Daily Activities Score: 23/24 [facility] Scoring Interpretation: Scores greater than [...] Note Bev Bobby 64 y.o. male CSN: [id number] Admission: 10/17/2024 6:21 AM Primary Problem: Critical limb ischemia of left lower extremity Community Health Worker reviewed chart and spoke with patient to complete this Initial Case Management Assessment. PCP: Asad Victor MD (Inactive) - Dr. Palomo Preferred pharmacy is [facility] Emergency Contact: Extended Emergency Contact Information Primary Emergency Contact: Patti Hill Relation: Sister Research Administrator needed? No Insurance: Primary Visit Coverage Payer Plan Sponsor Code Group Number Group Name [facility] MEDICARE [facility] MEDICARE REPLACEMENT [id number] Primary Visit Coverage Subscriber Subscriber ID Subscriber Name Subscriber [facility] Subscriber Address [id number] BEV BOBBY [id number] [place] [address] Secondary Visit Coverage Payer Plan Sponsor Code Group Number Group Name [employer] [facility] [facility] Secondary Visit Coverage Subscriber Subscriber ID Subscriber Name Subscriber [facility] Subscriber Address [id number] BEV BOBBY [id number] [place] [address] Patient information: Primary Caregiver: Self Daily Living Activities: Functional Status: Independent Living Arrangements: Alone Type of Residence: Private residence, Single Level [address] [place] [address] Current DME: Equipment Currently Used at Home: joy monterroso Income Information: Income Source: Retired Income/Expense Information: Income meets expenses Current Resources Utilized: Food [place] Housing Circumstances-Z Codes: Housing Circumstances (select all [...] Services: None. Living Will/Advance Directive/Power of Supervisor [employer] /Guardian: Denied. Additional Comments: Patient is not medically ready for discharge. SW will continue to follow. Mariia Monterroso HEAD MIXER * Care Plan - Emilia Alonso RN [...] from the original note were not included. [facility] Department of Surgery Division of [...] Prevention: activity supervised assistive device/personal items within [facility] fall prevention program maintained lighting [...] Agree with above assessment and evaluation from resident/GRANITE CUTTER APPRENTICE. * Op Note - Terrell Gautam MD - 10/17/2024 8:52 AM EDT Operative Note Date: 10/17/24 Location: [place] [facility] Name: Bev Bobby, : 1960, Diagnoses: Pre-op Diagnosis Critical limb ischemia of left lower extremity Common femoral artery pseudoaneurysm Post-op Diagnosis Critical limb ischemia of left lower extremity Common femoral artery pseudoaneurysm Procedure(s): Left common/superficial/profunda femoral thromboendarterectomy with bovine patch repair Left external iliac artery/MACHINE I ENGRAVER stent Attending Surgeon(s): * Terrell Gautam - Primary Draw Bench Operator(s): * Luna Beckett MD - Resident [...] Necessity Reasons Recent surgery contiguous with urinary tract/TRUCK JUMPER/colorectal 10/17/24 190 Output (mL) 50 mL 10/18/24 08 Implants Type Name Action Serial No. VASCUGUARD 8 X 8 - [id number] Implanted STENT ENDOPROSTHESIS VIABAHN 9FR [id number] - [id number] Implanted [id number] Specimen: Specimens ID Source Frozen? 1 Other [...] and distal control. We then proceeded with jpioe-uuu-[id number] exposure of the popliteal artery. A medial [...] balloon dilated thestent with a 9 mm Isle. We closed the arteriotomy with a single [...] 10/17/2024 8:52 AM EDT Date: 10/17/24 Location: [place] [facility] Name: Bev Bobby, : 1960, Diagnoses: Pre-op Diagnosis Critical limb ischemia of left lower extremity Common femoral artery pseudoaneurysm Post-op Diagnosis Critical limb ischemia of left lower extremity Common femoral artery pseudoaneurysm Procedure(s): Left common/superficial/profunda femoral thromboendarterectomy with bovine patch repair Left external iliac artery/MACHINE I ENGRAVER stent Attending Surgeon(s): * Terrell Gautam - Primary Draw Bench Operator(s): * Luna Beckett MD - Resident - Assisting * Dandy Baltazar MD - Fellow Anesthesia: General ASA: III Blood Administration: Blood Product Administration History None Estimated Blood Loss: 300 mL Drains: Urethral Catheter Temperature probe 16 Fr. (Active) Implants Type Name Action Serial No. VASCUGUARD 8 X 8 - [id number] Implanted STENT ENDOPROSTHESIS VIABAHN 9FR [id number] - [id number] Implanted [id number] Specimen: Specimens ID Source Frozen? 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 He previouslyunderwent thrombin injection. He reports pain in his calves. He presents today for scheduled left lower extremity femoral to [id number]-nki-[id number] popliteal bypass. Planned likely use PTFE. He [...] 16. Results Review {Vanishing Link Review Results :[id number] I have reviewed the latest lab and imaging results. Assessment & Plan Critical limb ischemia of left lower extremity Proceed with scheduled surgery left lower extremity femoral to zkbfa-[id number]-[id number] popliteal artery bypass graft. Extensive discussion had [...] Description 12/13/2024 2:00 PM EDT Office Visit [facility] [address] [place] [phone] Oscar Appiah MD [address] [facility] [address] [place] [phone] 12/19/2024 7:30 AM EDT Appointment [facility] [address] [place] [address] 12/19/2024 8:00 AM EDT Appointment [facility] [address] [place] [address] 12/19/2024 9:00 AM EDT Office Visit [facility] [address] [place] [address] Nathaly Nowak MD [address] [facility] [address] [place] [address] Pending Results Name Type Priority Associated Diagnoses [...] PREPARE RBC STAT 10/17/2024 8:06 AM EDT VA VEIN BYPASS GRAFT,FEM-POP 10/17/2024 7:38 AM EDT Critical limb ischemia of left lower extremity TYPE AND SCREEN Routine 10/17/2024 7:19 AM EDT POCT GLUCOSE METER UNSOLICITED RESULTS Routine 10/17/2024 6:44 AM EDT documented in this encounter Results * (ABNORMAL) POCT glucose meter (10/19/2024 11:40 AM EDT) Pathologist [facility] POCT Glucose 207(H) 74 - 99 mg/dL [...] Comment 10/19/2024 11:42 AM EDT HEALTHCARE LAB Copy Holder ID KamranJob 10/20/19 11:42 AM EDT HEALTHCARE LAB Device ID [id number] 10/19/2024 11:42 AM EDT HEALTHCARE LAB Specimen Type POC Capillary 10/19/2024 11:42 AM EDT [facility] Blood Capillary blood specimen / Unknown 10/19/2024 11:40 AM EDT 10/19/2024 11:42 AM EDT us Terrell Gautam MD LAB POINT OF CARE TE ST DOCKED DEVICE UNSOLICITED RESULTS Final Result Performing Organization Address City/State/[facility] Co de Phone Number HEALTHCARE LAB [address] [place] [address] * (ABNORMAL) Protime-INR (10/19/2024 8:25 AM EDT) [facility] Prothrombin Time 17.5(H) 12.0 - 14.3 sec [...] INR 2.5 to 3.5 Prevention of recurrent TX INR 2.5 to 3.5 us Nirmal Cueto MD LAB BLOOD ORDERABLES Final Result Performing Organization Address [facility]/ZIP Co de Phone Number [facility] [address] [place] [address] * (ABNORMAL) Phosphorus (10/19/2024 8:25 AM EDT) Phosphorus, Plasma 2.2(L) 2.5 - 4.5 mg/dL 10/19/2024 9:12 AM EDT [facility] Blood Venous blood specimen / Unknown Venipuncture / Unknown 10/19/2024 8:25 AM EDT 10/19/2024 8:43 AM EDT Nirmal Cueto MD LAB BLOOD ORDERABLES Final Result Performing Organization Address [facility] Co de Phone Number [facility] [address] [place] [address] * Magnesium (10/19/2024 8:25 AM EDT) Magnesium, Plasma 2.1 1.9 - 2.4 mg/dL 10/19/2024 9:12 AM EDT [facility] Blood Venous blood specimen / Unknown Venipuncture / Unknown 10/19/2024 8:25 AM EDT 10/19/2024 8:43 AM EDT Nirmal Cueto MD LAB BLOOD ORDERABLES Final Result Performing Organization Address [facility] Co de Phone Number [facility] [address] [place] [address] * (ABNORMAL) Basic metabolic panel (10/19/2024 8:25 [...] Result [facility] [address] [place] [address] * (ABNORMAL) CBC W/O Differential (10/19/2024 8:25 [...] Result [facility] [address] [place] [address] * (ABNORMAL) POCT glucose meter (10/19/2024 7:35 AM EDT) POCT Glucose 187(H) 74 - 99 mg/dL 10/19/2024 7:37 AM EDT [facility] Comment:Accuracy of a glucos [...] Comment 10/19/2024 7:37 AM EDT HEALTHCARE LAB Copy Holder ID Job Andrew 10/20/19 7:37 AM EDT HEALTHCARE LAB Device ID [id number] 10/19/2024 7:37 AM EDT HEALTHCARE LAB Specimen Type POC Capillary 10/19/2024 7:37 AM EDT HEALTHCARE LAB Blood Capillary blood specimen / Unknown 10/19/2024 7:35 AM EDT 10/19/2024 7:37 AM EDT us Terrell Gautam MD LAB POINT OF CARE TE ST DOCKED DEVICE UNSOLICITED RESULTS Final Result Performing Organization Address City/State/[facility] Co de Phone Number HEALTHCARE LAB [address] [place] [address] * (ABNORMAL) POCT glucose meter (10/18/2024 7:22 PM EDT) [facility] POCT Glucose 178(H) 74 - 99 mg/dL [...] Comment 10/18/2024 7:24 PM EDT HEALTHCARE LAB Copy Holder ID Mahesh Aldana 10/18/2024 7:24 PM EDT HEALTHCARE LAB Device ID [id number] 10/18/2024 7:24 PM EDT HEALTHCARE LAB Specimen Type POC Capillary 10/18/2024 7:24 PM EDT HEALTHCARE LAB Blood Capillary blood specimen / Unknown 10/18/2024 7:22 PM EDT 10/18/2024 7:24 PM EDT us Terrell Gautam MD LAB POINT OF CARE TE ST DOCKED DEVICE UNSOLICITED RESULTS Final Result Performing Organization Address [facility] Co de Phone Number [facility] [address] [place] [address] * (ABNORMAL) POCT glucose meter (10/18/2024 6:07 PM EDT) Pathologist [facility] POCT Glucose 167(H) 74 - 99 mg/dL [...] Comment 10/18/2024 6:09 PM EDT HEALTHCARE LAB Copy Holder ID David Parks Elaine 10/18/2024 6:09 PM EDT HEALTHCARE LAB Device ID [id number] 10/18/2024 6:09 PM EDT HEALTHCARE LAB Specimen Type POC Capillary 10/18/2024 6:09 PM EDT [facility] Blood Capillary blood specimen / Unknown 10/18/2024 6:07 PM EDT 10/18/2024 6:09 PM EDT Terrell Gautam MD LAB POINT OF CARE TE ST DOCKED DEVICE UNSOLICITED RESULTS Final Result Performing Organization Address [facility] Co de Phone Number [facility] [address] [place] [address] * (ABNORMAL) POCT glucose meter (10/18/2024 11:56 AM EDT) [facility] POCT Glucose 233(H) 74 - 99 mg/dL [...] 10/21/2024 7:42 AM EDT [facility] Copy Holder ID Venessa Marcano 10/21/2024 7:42 AM EDT [facility] Device ID [id number] 10/21/2024 7:42 AM EDT HEALTHCARE LAB Specimen Type POC Capillary 10/21/2024 7:42 AM EDT HEALTHCARE LAB Blood Capillary blood specimen / Unknown 10/18/2024 11:56 AM EDT 10/21/2024 7:42 AM EDT us Terrell Gautam MD LAB POINT OF CARE TE ST DOCKED DEVICE UNSOLICITED RESULTS Final Result Performing Organization Address City/[facility] Co de Phone Number [facility] [address] [place] [address] * (ABNORMAL) POCT glucose meter (10/18/2024 9:24 AM EDT) Pathologist [facility] POCT Glucose 322(H) 74 - 99 mg/dL [...] 10/21/2024 7:42 AM EDT [facility] Copy Holder ID Emilia Alonso 7:42 AM EDT [facility] Device ID [id number] 10/21/2024 7:42 AM EDT [facility] Specimen Type POC Venous 10/21/2024 7:42 AM EDT HEALTHCARE LAB Blood Venous blood specimen / Unknown 10/18/2024 9:24 AM EDT 10/21/2024 7:42 AM EDT us Terrell Gautam MD LAB POINT OF CARE TE ST DOCKED DEVICE UNSOLICITED RESULTS Final Result Performing Organization Address City/[facility] Co de Phone Number [facility] [address] [place] [address] * (ABNORMAL) POCT glucose meter (10/18/2024 7:36 [...] Comment 10/18/2024 7:38 AM EDT HEALTHCARE LAB Copy Holder ID Kizzy Godfrey 025 7:38 AM EDT HEALTHCARE LAB Device ID [id number] 10/18/2024 7:38 AM EDT [facility] Specimen Type POC Capillary 10/18/2024 7:38 AM EDT [facility] Blood Capillary blood specimen / Unknown 10/18/2024 7:36 AM EDT 10/18/2024 7:38 AM EDT us Terrell Gautam MD LAB POINT OF CARE TE ST DOCKED DEVICE UNSOLICITED RESULTS Final Result HEALTHCARE LAB [address] [place] [address] * (ABNORMAL) CBC (10/18/2024 2:09 AM EDT) [facility] WBC Count 16.71(H) 3.70 - 10.30 10*3/uL [...] Result [facility] [address] [place] [address] * (ABNORMAL) Basic metabolic panel (10/18/2024 2:09 [...] BLOOD ORDERABLES Final Result Performing Organization Address City/[facility]/ZIP Co de Phone Number [facility] [address] [place] [address] * (ABNORMAL) Magnesium (10/18/2024 2:09 AM EDT) Magnesium, Plasma 1.8(L) 1.9 - 2.4 mg/dL 10/18/2024 2:53 AM EDT [facility] Blood Venous blood specimen / Unknown Venipuncture / Unknown 10/18/2024 2:09 AM EDT 10/18/2024 2:25 AM EDT Nirmal Cueto MD LAB BLOOD ORDERABLES Final Result [facility] [address] [place] [address] * Phosphorus (10/18/2024 2:09 AM EDT) Phosphorus, Plasma 3.7 2.5 - 4.5 mg/dL 10/18/2024 2:53 AM EDT [facility] Blood Venous blood specimen / Unknown Venipuncture / Unknown 10/18/2024 2:09 AM EDT 10/18/2024 2:25 AM EDT Nirmal Cueto MD LAB BLOOD ORDERABLES Final Result Performing Organization Address [facility] Co de Phone Number [facility] [address] [place] [address] * (ABNORMAL) Protime-INR (10/18/2024 2:09 AM EDT) Prothrombin Time 14.5(H) 12.0 - 14.3 sec LAB COAGULATION METHOD 10/18/2024 2:53 AM EDT [facility] INR 1.1 0.9 - 1.1 LAB COAGULATION METHOD 10/18/2024 2:53 AM EDT [facility] Blood Venous blood specimen / Unknown Venipuncture / Unknown 10/18/2024 2:09 AM EDT 10/18/2024 2:25 AM EDT Narrative [facility] - 10/18/2024 2:53 AM EDT OPTIMAL INR RANGES FOR PATIENT ON ORAL ANTICOAGULANT THERAPY Prevention of venous thromboembolism INR 2.0 to 3.0 In patients with heart disease: Atrial fibrillation INR 2.0 to 3.0 Valvular heart disease INR 2.0 to 3.0 Tissue heart valves INR 2.0 to 3.0 Mechanical prosthetic valves INR 2.5 to 3.5 Prevention of recurrent TX INR 2.5 to 3.5 Result [facility] Nirmal Cueto MD LAB BLOOD ORDERABLES Final Result Performing Organization Address [facility] Co de Phone Number [facility] [address] [place] [address] * (ABNORMAL) POCT glucose meter (10/18/2024 2:08 AM EDT) POCT Glucose 202(H) 74 - 99 mg/dL 10/18/2024 2:10 AM EDT [facility] Comment:Accuracy of a glucos [...] Comment 10/18/2024 2:10 AM EDT HEALTHCARE LAB Copy Holder ID Jourdan Grimes II 10/18/2024 2:10 AM EDT HEALTHCARE LAB Device ID [id number] 10/18/2024 2:10 AM EDT HEALTHCARE LAB Specimen Type POC Capillary 10/18/2024 2:10 AM EDT HEALTHCARE LAB Blood Capillary blood specimen / Unknown 10/18/2024 2:08 AM EDT 10/18/2024 2:10 AM EDT us Terrell Gautam MD LAB POINT OF CARE TE ST DOCKED DEVICE UNSOLICITED RESULTS Final Result Performing Organization Address City/[facility] Co vt Phone Number HEALTHCARE LAB [address] [place] [address] * (ABNORMAL) POCT glucose meter (10/17/2024 10:07 PM EDT) [facility] POCT Glucose 300(H) 74 - 99 mg/dL [...] Comment 10/17/2024 10:10 PM EDT HEALTHCARE LAB Copy Holder ID Jourdan Grimes II 10/17/2024 10:10 PM EDT HEALTHCARE LAB Device ID [id number] 10/17/2024 10:10 PM EDT HEALTHCARE LAB Specimen Type POC Capillary 10/17/2024 10:10 PM EDT [facility] Blood Capillary blood specimen / Unknown 10/17/2024 10:07 PM EDT 10/17/2024 10:10 PM EDT us Terrell Gautam MD LAB POINT OF CARE TE ST DOCKED DEVICE UNSOLICITED RESULTS Final Result [facility] [address] [place] [address] * (ABNORMAL) POCT glucose meter (10/17/2024 8:07 PM EDT) [facility] POCT Glucose 391(H) 74 - 99 mg/dL [...] Comment 10/17/2024 8:10 PM EDT [facility]ALTH[facility] LAB Copy Holder ID Cornelio WALTERS Jourdan 10/17/2024 8:10 PM EDT HEALTH[facility]ARE LAB Device ID [id number] 10/17/2024 8:10 PM EDT [facility] Specimen Type POC Capillary 10/17/2024 8:10 PM EDT [facility] Blood Capillary blood specimen / Unknown 10/17/2024 8:07 PM EDT 10/17/2024 8:10 PM EDT Terrell Gautam MD LAB POINT OF CARE TE ST DOCKED DEVICE UNSOLICITED RESULTS Final Result Performing Organization Address [facility] de Phone Number [facility] [address] [place] [address] * (ABNORMAL) POCT glucose meter (10/17/2024 4:01 PM EDT) [facility] POCT Glucose 249(H) 74 - 99 mg/dL [...] 10/17/2024 4:03 PM EDT [facility] Copy Holder ID Chelsieamanda Keisha 10/17/2024 4:03 PM EDT [facility] Device ID [id number] 10/17/2024 4:03 PM EDT [facility] Specimen Type POC Capillary 10/17/2024 4:03 PM EDT [facility] Blood Capillary blood specimen / Unknown 10/17/2024 4:01 PM EDT 10/17/2024 4:03 PM EDT us Terrell Gautam MD LAB POINT OF CARE TE ST DOCKED DEVICE UNSOLICITED RESULTS Final Result Performing Organization Address City/[facility] Co de Phone Number [facility] [address] [place] [address] * (ABNORMAL) POCT glucose meter (10/17/2024 1:25 PM EDT) [facility] POCT Glucose 225(H) 74 - 99 mg/dL [...] 10/17/2024 1:27 PM EDT [facility] Copy Holder ID Kizzy Godfrey 025 1:27 PM EDT [facility] Device ID [id number] 10/17/2024 1:27 PM EDT [facility] Specimen Type POC Capillary 10/17/2024 1:27 PM EDT [facility] Blood Capillary blood specimen / Unknown 10/17/2024 1:25 PM EDT 10/17/2024 1:27 PM EDT us Terrell Gautam MD LAB POINT OF CARE TE ST DOCKED DEVICE UNSOLICITED RESULTS Final Result Performing Organization Address City/[facility] Co de Phone Number [facility] [address] [place] [address] * [place] Less than 1 Hour Intraoperative [...] Seconds 10/29/2024 7:28 AM EDT [facility]ALTH[facility] LAB Copy Holder ID Donna Mcmillan 10/29/2024 7:28 AM EDT [facility]ALTH[facility] ACT Device ID [id number] 10/29/2024 7:28 AM EDT [facility] Comment 10/29/2024 7:28 AM EDT MAN [...] UNSOLICITED RESULTS Final Result Performing Organization Address City/[facility] Co de Phone Number [facility] [address] LAB [address] [place] [address] * (ABNORMAL) Blood gas, arterial (10/17/2024 11:48 [...] 10/17/2024 11:53 AM EDT us Jenna Lopez GRANITE CUTTER APPRENTICE LAB BLOOD ORDERABLES Final Re sult [facility] [address] [place] [address] * POCT ACT (10/17/2024 11:41 AM EDT) ACT+ (HIGH RANGE) 175 68 - 600 Seconds 10/29/2024 7:28 AM EDT [facility] Copy Holder ID Oneyda Alicea 10/29/2024 7:28 AM EDT [facility] ACT Device ID [id number] 10/29/2024 7:28 AM EDT [facility] Comment 10/29/2024 7:28 AM EDT [facility] Comment: ACT performed by staff at [...] UNSOLICITED RESULTS Final Result Performing Organization Address City/[facility] Co de Phone Number HEALTHCARE [facility] [address] LAB [address] [place] [address] * POCT ACT (10/17/2024 11:11 AM EDT) ACT+ (HIGH RANGE) 252 68 - 600 Seconds 10/29/2024 7:28 AM EDT [facility] Copy Holder ID Donna Mcmillan 10/29/2024 7:28 AM EDT [facility] ACT Device ID [id number] 10/29/2024 7:28 AM EDT [facility] Comment 10/29/2024 7:28 AM EDT [facility] Comment: ACT performed by staff at [...] UNSOLICITED RESULTS Final Result Performing Organization Address City/[facility]/ZIP Co de Phone Number HEALTHCARE [facility] [address] LAB [address] [place] [address] * (ABNORMAL) Blood gas, arterial (10/17/2024 10:46 [...] 10/17/2024 10:54 AM EDT us Jenna Lopez GRANITE CUTTER APPRENTICE LAB BLOOD ORDERABLES Final Re sult Performing Organization Address City/[facility]/ZIP Co de Phone Number [facility] [address] [place] [address] * POCT ACT (10/17/2024 10:37 AM EDT) ACT+ (HIGH RANGE) 206 68 - 600 Seconds 10/29/2024 7:28 AM EDT [facility] Copy Holder ID Donna Mcmillan 10/29/2024 7:28 AM EDT [facility] ACT Device ID [id number] 10/29/2024 7:28 AM EDT [facility] Comment 10/29/2024 7:28 AM EDT [facility] Comment: ACT performed by staff at point [...] UNSOLICITED RESULTS Final Result Performing Organization Address [facility] Co de Phone Number [facility] [address] LAB [address] [place] [address] * Surgical Pathology Exam (10/17/2024 10:27 AM EDT) Case Report Surgical Pathology Case: [id number] Authorizing Provider: Terrell Gautam MD Collected: 10/17/2024 1027 Ordering Location: [facility] Received: 10/17/2024 1325 Pathologist: Haydee [...] cm. The specimen is serially sectioned and packaging sales representative sections are submitted in cassette A1. Cold Time: <1m Kenia C Yola 10/21/2024 10:16 AM EDT [facility] [...] MD LAB PATHOLOGY ORDERABLES Gwen grimaldo Result [facility] [address] [place] [id number] * POCT ACT (10/17/2024 10:03 AM EDT) ACT+ (HIGH RANGE) 244 68 - 600 Seconds 10/29/2024 7:28 AM EDT [facility] Copy Holder ID Donna Mcmillan 10/29/2024 7:28 AM EDT [facility] ACT Device ID [id number] 10/29/2024 7:28 AM EDT [facility] Comment 10/29/2024 7:28 AM EDT MAN [...] DEVICE UNSOLICITED RESULTS Final Result [facility] [address] LAB [address] [place] [address] * (ABNORMAL) Blood gas, arterial (10/17/2024 9:45 [...] sult [facility] [address] [place] [address] * (ABNORMAL) Blood gas, arterial (10/17/2024 8:47 [...] sult [facility] [address] [place] [address] * POCT ACT (10/17/2024 8:46 AM EDT) ACT+ (HIGH RANGE) 101 68 - 600 Seconds 10/29/2024 7:28 AM EDT HEALTHCARE LAB Copy Holder ID Donna Mcmillan 10/29/2024 7:28 AM EDT [facility]ALTH[facility]ARE LAB ACT Device ID [id number] 10/29/2024 7:28 AM EDT [facility] Comment [...] Final Result [facility] [address] LAB [address] [place] [address] * Type and Screen (10/17/2024 7:19 AM [...] ORDERAB LES Final Result Performing Organization Address [facility] Co de Phone Number BLOOD BANK [address] [place] [address] * (ABNORMAL) POCT glucose meter (10/17/2024 6:44 AM EDT) [facility] POCT Glucose 178(H) 74 - 99 mg/dL [...] 10/17/2024 6:49 AM EDT [facility] Copy Holder ID Hunter Burroughs 10/18/19 6:49 AM EDT [facility] Device ID [id number] 10/17/2024 6:49 AM EDT [facility] Specimen Type POC Capillary 10/17/2024 6:49 AM EDT [facility] Blood Capillary blood specimen / Unknown 10/17/2024 6:44 AM EDT 10/17/2024 6:49 AM EDT us Terrell Gautam MD LAB POINT OF CARE TE ST DOCKED DEVICE UNSOLICITED RESULTS Final Result [facility] [address] [place] [address] documented in this encounter Visit Diagnoses Diagnosis [...] documented as of this encounter Care Teams Chemical Dependency Professional Relationship Specialty Start Date End Date Asad Victor MD [address] [place] [id number] PCP - General 10/07/22 documented as of this encounter
--- OUTSIDE RECORDS SUMMARY | 2024-11-05 21:45 | XMS_ITS | Encounter Summary ---
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 HEMATOLOGY METHOD 11/13/2024 6:51 AM EDT [facility] Platelet Count 398(H) 155 - 369 10*3/uL LAB HEMATOLOGY METHOD 11/13/2024 6:51 AM EDT [facility] MCV 92 79 - 98 fL LAB HEMATOLOGY METHOD 11/13/2024 6:51 AM EDT [facility] MCH 29.5 26.0 - 32.0 pg LAB HEMATOLOGY METHOD 11/13/2024 6:51 AM EDT [facility] MCHC 32.2 30.7 - 35.5 g/dL LAB HEMATOLOGY METHOD 11/13/2024 6:51 AM EDT [facility] RDW 13.6 11.5 - 14.5 % LAB HEMATOLOGY METHOD 11/13/2024 6:51 AM EDT [facility] MPV 8.9 8.8 - 12.5 fL LAB HEMATOLOGY METHOD 11/13/2024 6:51 AM EDT [facility] nRBC 0.0 <=0.0 per 100 WBCs LAB HEMATOLOGY METHOD 11/13/2024 6:51 AM EDT [facility] Blood Venous blood specimen / Unknown Venipuncture / Unknown 11/13/2024 6:37 AM EDT 11/13/2024 6:44 AM EDT us Nathaly Nowak MD LAB BLOOD ORDERABLES Final Resu lt [facility] [address] [place] [address] * (ABNORMAL) Basic Metabolic Panel, Plasma (11/13/2024 6:37 AM EDT) Glucose, Plasma 200(H) 74 - 99 mg/dL 11/13/2024 7:16 AM EDT [facility] BUN, Plasma 10 8 - 23 mg/dL 11/13/2024 7:16 AM EDT [facility] Creatinine, Plasma 0.68(L) 0.70 - 1.20 mg/dL 11/13/2024 7:16 AM EDT [facility] BUN/Creatinine Ratio 15 11/13/2024 7:16 AM EDT [facility] Sodium, Plasma 135(L) 136 - 145 mmol/L 11/13/2024 7:16 AM EDT [facility] Potassium, Plasma 3.9 3.6 - 4.9 mmol/L 11/13/2024 7:16 AM EDT [facility] Chloride, Plasma 107 97 - 107 mmol/L 11/13/2024 7:16 AM EDT [facility] CO2, Plasma 21(L) 22 - 29 mmol/L 11/13/2024 7:16 AM EDT [facility] Anion Gap 7 6 - 16 mmol/L 11/13/2024 7:16 AM EDT [facility] Total Calcium, Plasma 8.1(L) 8.9 - 10.2 mg/dL 11/13/2024 7:16 AM EDT [facility] eGFRcr 103.2 mL/min/1.7 3m*2 11/13/2024 7:16 AM EDT [facility] Comment:Reported eGFRcr in m L/min/1.73m2 is based the CKD-EPI 2020 equation that does not use a race coefficient. Blood Venous blood specimen / Unknown Venipuncture / Unknown 11/13/2024 6:37 AM EDT 11/13/2024 6:44 AM EDT us Nathaly Nowak MD LAB BLOOD ORDERABLES Final Resu lt Performing Organization Address [facility] Co de Phone Number [facility] [address] [place] [address] * (ABNORMAL) POCT glucose meter (11/12/2024 8:27 PM EDT) POCT Glucose 175(H) 74 - 99 mg/dL 11/12/2024 8:29 PM EDT [facility] Comment:Accuracy of a glucos e result [...] Comment 11/12/2024 8:29 PM EDT HEALTHCARE [facility] Customs Guard ID Nelda Gerber 11/13/19 8:29 PM EDT HEALTHCARE LAB Device ID [id number] 11/12/2024 8:29 PM EDT [facility]CARE [facility] Specimen Type POC Capillary 11/12/2024 8:29 PM EDT [facility] Blood Capillary blood specimen / Unknown 11/12/2024 8:27 PM EDT 11/12/2024 8:29 PM EDT us Nathaly Nowak MD LAB POINT OF CARE TE ST DOCKED DEVICE UNSOLICITED RESULTS Final Result Performing Organization Address City/[facility] Co de Phone Number [facility]ALTHCARE [facility] [address] [place] [address] * (ABNORMAL) POCT glucose meter (11/12/2024 5:08 PM EDT) [facility] [address] POCT Glucose 157(H) 74 - 99 mg/dL [...] 11/12/2024 5:10 PM EDT [facility] Customs Guard ID Wade Feliciano 5:10 PM EDT [facility] Device ID [id number] 11/12/2024 5:10 PM EDT [facility] Specimen Type POC Capillary 11/12/2024 5:10 PM EDT [facility]ARE [facility] Blood Capillary blood specimen / Unknown 11/12/2024 5:08 PM EDT 11/12/2024 5:10 PM EDT Nathaly Nowak MD LAB POINT OF CARE TE ST DOCKED DEVICE UNSOLICITED RESULTS Final Result Performing Organization Address City/State/[facility] Co de Phone Number [facility]CARE [facility] [address] [place] [address] * (ABNORMAL) POCT glucose meter (11/12/2024 12:36 PM EDT) [facility] [address] POCT Glucose 224(H) 74 - 99 mg/dL [...] 11/12/2024 12:38 PM EDT [facility] Customs Guard ID Wade Feliciano 12:38 PM EDT [facility] Device ID [id number] 11/12/2024 12:38 PM EDT [facility] Specimen Type POC Capillary 11/12/2024 12:38 PM EDT [facility] Blood Capillary blood specimen / Unknown 11/12/2024 12:36 PM EDT 11/12/2024 12:38 PM EDT Nathaly Nowak MD LAB POINT OF CARE TE ST DOCKED DEVICE UNSOLICITED RESULTS Final Result Performing Organization Address City/[facility]/ZIP Co de Phone Number HEALTHCARE [facility] [address] [place] [address] * Clostridiodes (Clostridium) difficile PCR (11/12/2024 9:50 AM EDT) C difficile PCR toxin B gene DNA Result Not Detected Not Detected 11/12/2024 11:54 AM EDT [facility] Stool Rectum structure / Unknown Non-blood Collection / Unknown 11/12/2024 9:50 AM EDT 11/12/2024 10:04 AM EDT Narrative [facility] - 11/12/2024 11:54 AM EDT [...] LAB MICROBIOLOGY - [facility] Final Result [facility] [address] [place] [address] * Comprehensive GI Panel by PCR (11/12/2024 9:50 AM EDT) Campylobacter PCR Result Not Detected Not Detected 11/12/2024 2:47 PM EDT [facility] Plesiomonas shigelloides PCR Result Not Detected Not Detected 11/12/2024 2:47 PM EDT [facility] Salmonella PCR Result Not Detected Not Detected 11/12/2024 2:47 PM EDT [facility] Vibrio species PCR Result Not Detected Not Detected 11/12/2024 2:47 PM EDT [facility] Vibrio cholerae PCR Result Not Detected Not Detected 11/12/2024 2:47 PM EDT [facility] Yersinia enterocolitica PCR Result Not Detected Not Detected 11/12/2024 2:47 PM EDT [facility] Enteroaggregative E. coli (EAEC) PCR Result Not Detected Not Detected 11/12/2024 2:47 PM EDT [facility] Enteropathogenic E. coli (EPEC) PCR Result Not Detected Not Detected 11/12/2024 2:47 PM EDT [facility] Enterotoxigenic E. coli (ETEC) lt/st PCR Result Not Detected Not Detected 11/12/2024 2:47 PM EDT [facility] Shiga-like Toxin-Producing E.coli (STEC) stx1/stx2 PCR Resu Not Detected Not Detected 11/12/2024 2:47 PM EDT [facility] E coli 0157 PCR Result Not Detected Not Detected 11/12/2024 2:47 PM EDT [facility] Shigella/Enteroinvas tam E. coli (EIEC) PCR Result Not Detected Not Detected 11/12/2024 2:47 PM EDT [facility] Cryptosporidium PCR Result Not Detected Not Detected 11/12/2024 2:47 PM EDT [facility] Cyclospora cayetanensis PCR Result Not Detected Not Detected 11/12/2024 2:47 PM EDT [facility] Entamoeba histolytica PCR Result Not Detected Not Detected 11/12/2024 2:47 PM EDT [facility] Giardia duodenalis (aka Giardia lamblia) PCR Result Not Detected Not Detected 11/12/2024 2:47 PM EDT [facility] Adenovirus F 40/41 PCR Result Not Detected Not Detected 11/12/2024 2:47 PM EDT [facility] Astrovirus PCR Result Not Detected Not Detected 11/12/2024 2:47 PM EDT [facility] Norovirus GI/GII PCR Result Not Detected Not Detected 11/12/2024 2:47 PM EDT [facility] Rotavirus A PCR Result Not Detected Not Detected 11/12/2024 2:47 PM EDT [facility] Sapovirus PCR Result Not Detected Not Detected 11/12/2024 2:47 PM EDT [facility] Stool Rectum structure / Unknown Non-blood Collection / Unknown 11/12/2024 9:50 AM EDT 11/12/2024 10:04 AM EDT Narrative [facility] - 11/12/2024 2:47 PM EDT [...] us Nathaly Nowak MD LAB MICROBIOLOGY - [facility] Final Result Performing Organization Address City/[facility]/ZIP Co de Phone Number [facility] [address] [place] [address] * C-reactive protein (11/12/2024 9:48 AM EDT) CRP, Plasma <3.0 <=8.0 mg/L 11/12/2024 10:28 AM EDT [facility] Blood Venous blood specimen / Unknown Venipuncture / Unknown 11/12/2024 9:48 AM EDT 11/12/2024 9:59 AM EDT Narrative [facility] - 11/12/2024 10:28 AM EDT This CRP test is appropriate for assessment of infection, systemic inflammation and/or tissue injury. To assess cardiovascular disease risk order high sensitivity CRP (CRPH). us Nathaly Nowak MD LAB BLOOD ORDERABLES Final [facility]u lt [facility] [address] [place] [address] * (ABNORMAL) POCT glucose meter (11/12/2024 8:20 AM EDT) [facility] [address] POCT Glucose 138(H) 74 - 99 mg/dL [...] Comment 11/12/2024 8:21 AM EDT HEALTHCARE LAB Customs Guard ID Wade Feliciano 8:21 AM EDT [facility] Device ID [id number] 11/12/2024 8:21 AM EDT HEALTHCARE LAB Specimen Type POC Capillary 11/12/2024 8:21 AM EDT [facility] Blood Capillary blood specimen / Unknown 11/12/2024 8:20 AM EDT 11/12/2024 8:21 AM EDT Nathaly Nowak MD LAB POINT OF CARE TE ST DOCKED DEVICE UNSOLICITED RESULTS Final Result [facility] [address] [place] [address] * (ABNORMAL) POCT glucose meter (11/11/2024 8:18 PM EDT) [facility] [address] POCT Glucose 248(H) 74 - 99 mg/dL [...] 11/11/2024 8:20 PM EDT [facility] Customs Guard ID Nelda Gerber 11/12/19 8:20 PM EDT [facility] Device ID [id number] 11/11/2024 8:20 PM EDT HEALTHCARE LAB Specimen Type POC Capillary 11/11/2024 8:20 PM EDT [facility]ARE [facility] Blood Capillary blood specimen / Unknown 11/11/2024 8:18 PM EDT 11/11/2024 8:20 PM EDT Nathaly Nowak MD LAB POINT OF CARE TE ST DOCKED DEVICE UNSOLICITED RESULTS Final Result Performing Organization Address City/[facility] Co de Phone Number [facility] [address] [place] [address] * (ABNORMAL) POCT glucose meter (11/11/2024 5:59 [...] 11/11/2024 6:01 PM EDT [facility] Customs Guard ID Wade Feliciano Tobias 6:01 PM EDT HEALTHCARE LAB Device ID [id number] 11/11/2024 6:01 PM EDT HEALTHCARE LAB Specimen Type POC Capillary 11/11/2024 6:01 PM EDT [facility]ALTH[facility]ARE [facility] Blood Capillary blood specimen / Unknown 11/11/2024 5:59 PM EDT 11/11/2024 6:01 PM EDT us Nathaly Nowak MD LAB POINT OF CARE TE ST DOCKED DEVICE UNSOLICITED RESULTS Final Result Performing Organization Address City/[facility] Co de Phone Number HEALTHCARE [facility] [address] [place] [address] * POCT glucose meter (11/11/2024 5:20 PM [...] Comment 11/11/2024 5:22 PM EDT HEALTHCARE [facility] Customs Guard ID Wade Feliciano 5:22 PM EDT HEALTHCARE LAB Device ID [id number] 11/11/2024 5:22 PM EDT HEALTHCARE LAB Specimen Type POC Capillary 11/11/2024 5:22 PM EDT [facility] Blood Capillary blood specimen / Unknown 11/11/2024 5:20 PM EDT 11/11/2024 5:22 PM EDT us Nathaly Nowak MD LAB POINT OF CARE TE ST DOCKED DEVICE UNSOLICITED RESULTS Final Result Performing Organization Address City/State/[facility] Co de Phone Number HEALTHCARE LAB [address] [place] [address] * [place] NEGATIVE PRESSURE WOUND THERAPY DME >50 SQ [...] POCT glucose meter (11/11/2024 12:08 PM EDT) [facility] [address] POCT Glucose 226(H) 74 - 99 mg/dL [...] Comment 11/11/2024 12:10 PM EDT HEALTHCARE LAB Customs Guard ID Wade Feliciano 12:10 PM EDT HEALTHCARE LAB Device ID [id number] 11/11/2024 12:10 PM EDT HEALTHCARE LAB Specimen Type POC Capillary 11/11/2024 12:10 PM EDT [facility] Blood Capillary blood specimen / Unknown 11/11/2024 12:08 PM EDT 11/11/2024 12:10 PM EDT us Nathaly Nowak MD LAB POINT OF CARE TE ST DOCKED DEVICE UNSOLICITED RESULTS Final Result Performing Organization Address City/State/[facility] Co de Phone Number HEALTHCARE [facility] [address] [place] [address] * (ABNORMAL) POCT glucose meter (11/11/2024 9:08 AM EDT) [facility] [address] POCT Glucose 162(H) 74 - 99 mg/dL [...] 11/11/2024 9:09 AM EDT [facility] Customs Guard ID Wade Feliciano 9:09 AM EDT HEALTHCARE LAB Device ID [id number] 11/11/2024 9:09 AM EDT HEALTHCARE LAB Specimen Type POC Capillary 11/11/2024 9:09 AM EDT [facility]ALTH[facility]ARE [facility] Blood Capillary blood specimen / Unknown 11/11/2024 9:08 AM EDT 11/11/2024 9:09 AM EDT Nathaly Nowak MD LAB POINT OF CARE TE ST DOCKED DEVICE UNSOLICITED RESULTS Final Result Performing Organization Address [facility] Co de Phone Number [facility] [address] [place] [address] * POCT glucose meter (11/11/2024 8:27 AM [...] Comment 11/11/2024 8:28 AM EDT HEALTHCARE LAB Customs Guard ID Wade Feliciano 8:28 AM EDT HEALTHCARE LAB Device ID [id number] 11/11/2024 8:28 AM EDT [facility] Specimen Type POC Capillary 11/11/2024 8:28 AM EDT [facility] Blood Capillary blood specimen / Unknown 11/11/2024 8:27 AM EDT 11/11/2024 8:28 AM EDT Nathayl Nowak MD LAB POINT OF CARE TE ST DOCKED DEVICE UNSOLICITED RESULTS Final Result Performing Organization Address City/[facility] Co de Phone Number [facility]ALTHCARE [facility] [address] [place] [address] * (ABNORMAL) Basic Metabolic Panel, Plasma (11/11/2024 1:12 AM EDT) Glucose, Plasma 122(H) 74 - 99 mg/dL 11/11/2024 1:12 AM EDT [facility] BUN, Plasma 10 8 - 23 mg/dL 11/11/2024 1:12 AM EDT [facility] Creatinine, Plasma 0.82 0.70 - 1.20 mg/dL 11/11/2024 1:12 AM EDT [facility] BUN/Creatinine Ratio 12 11/11/2024 1:12 AM EDT [facility] Sodium, Plasma 137 136 - 145 mmol/L 11/11/2024 1:12 AM EDT [facility] Potassium, Plasma 3.9 3.6 - 4.9 mmol/L 11/11/2024 1:12 AM EDT [facility] Chloride, Plasma 110(H) 97 - 107 mmol/L 11/11/2024 1:12 AM EDT [facility] CO2, Plasma 20(L) 22 - 29 mmol/L 11/11/2024 1:12 AM EDT [facility] Anion Gap 7 6 - 16 mmol/L 11/11/2024 1:12 AM EDT [facility] Total Calcium, Plasma 7.6(L) 8.9 - 10.2 mg/dL 11/11/2024 1:12 AM EDT [facility] eGFRcr 97.5 mL/min/1.7 3m*2 11/11/2024 1:12 AM EDT [facility] Comment:Reported eGFRcr in m L/min/1.73m2 is based the CKD-EPI 2020 equation that does not use a race coefficient. Blood Venous blood specimen / Unknown 11/11/2024 12:42 AM EDT us Nathaly Nowak MD LAB BLOOD ORDERABLES Final Resu lt [facility] [address] [place] [address] * (ABNORMAL) CBC W/O Differential (11/11/2024 12:56 AM EDT) WBC Count 11.83(H) 3.70 - 10.30 10*3/uL LAB HEMATOLOGY METHOD 11/11/2024 12:56 AM EDT [facility] RBC Count 2.97(L) 4.60 - 6.10 10*6/uL LAB HEMATOLOGY METHOD 11/11/2024 12:56 AM EDT [facility] HGB 8.9(L) 13.7 - 17.5 g/dL LAB HEMATOLOGY METHOD 11/11/2024 12:56 AM EDT [facility] HCT 27.2(L) 40.0 - 51.0 % LAB HEMATOLOGY METHOD 11/11/2024 12:56 AM EDT [facility] Platelet Count 444(H) 155 - 369 10*3/uL LAB HEMATOLOGY METHOD 11/11/2024 12:56 AM EDT [facility] MCV 92 79 - 98 fL LAB HEMATOLOGY METHOD 11/11/2024 12:56 AM EDT [facility] MCH 30.0 26.0 - 32.0 pg LAB HEMATOLOGY METHOD 11/11/2024 12:56 AM EDT [facility] MCHC 32.7 30.7 - 35.5 g/dL LAB HEMATOLOGY METHOD 11/11/2024 12:56 AM EDT [facility] RDW 13.3 11.5 - 14.5 % LAB HEMATOLOGY METHOD 11/11/2024 12:56 AM EDT [facility] MPV 9.0 8.8 - 12.5 fL LAB HEMATOLOGY METHOD 11/11/2024 12:56 AM EDT [facility] nRBC 0.0 <=0.0 per 100 WBCs LAB HEMATOLOGY METHOD 11/11/2024 12:56 AM EDT [facility] Blood Venous blood specimen / Unknown 11/11/2024 12:42 AM EDT us Nathaly Nowak MD LAB BLOOD ORDERABLES Final Resu lt [facility] [address] [place] [address] * (ABNORMAL) POCT glucose meter (11/10/2024 8:25 PM EDT) POCT Glucose 144(H) 74 - 99 mg/dL 11/10/2024 8:28 PM EDT [facility] Comment:Accuracy of a glucos e [...] 11/10/2024 8:28 PM EDT [facility] Customs Guard ID Nelda Gerber 11/11/19 8:28 PM EDT [facility] Device ID [id number] 11/10/2024 8:28 PM EDT [facility] Specimen Type POC Capillary 11/10/2024 8:28 PM EDT [facility] Blood Capillary blood specimen / Unknown 11/10/2024 8:25 PM EDT 11/10/2024 8:28 PM EDT us Nathaly Nowak MD LAB POINT OF CARE TE ST DOCKED DEVICE UNSOLICITED RESULTS Final Result Performing Organization Address [facility] de Phone Number HEALTHCARE LAB [address] [place] [address] * (ABNORMAL) POCT glucose meter (11/10/2024 4:45 PM EDT) [facility] Signature POCT Glucose 155(H) 74 - 99 [...] 11/10/2024 4:47 PM EDT [facility] Customs Guard ID Esperanza Parks 11/10/2024 4:47 PM EDT HEALTHCARE LAB Device ID [id number] 11/10/2024 4:47 PM EDT HEALTHCARE LAB Specimen Type POC Capillary 11/10/2024 4:47 PM EDT [facility] Blood Capillary blood specimen / Unknown 11/10/2024 4:45 PM EDT 11/10/2024 4:47 PM EDT us Nathaly Nowak MD LAB POINT OF CARE TE ST DOCKED DEVICE UNSOLICITED RESULTS Final Result Performing Organization Address City/[facility] Co de Phone Number [facility] [address] [place] [address] * (ABNORMAL) POCT glucose meter (11/10/2024 12:13 [...] Comment 11/10/2024 12:14 PM EDT HEALTHCARE LAB Customs Guard ID Esperanza Parks 11/10/2024 12:14 PM EDT HEALTHCARE LAB Device ID [id number] 11/10/2024 12:14 PM EDT HEALTHCARE LAB Specimen Type POC Capillary 11/10/2024 12:14 PM EDT [facility] Blood Capillary blood specimen / Unknown 11/10/2024 12:13 PM EDT 11/10/2024 12:14 PM EDT us Nathaly Nowak MD LAB POINT OF CARE TE ST DOCKED DEVICE UNSOLICITED RESULTS Final Result [facility] [address] [place] [address] * Vancomycin, Peak, Plasma Please draw ~2 hours after 0800 dose of vancomycin finishes infusing. Consider obtaining level via peripheral stick. If peripheral stick is not feasible, please ensure that line is flushed well prior to drawing level. Than... (11/10/2024 10:56 AM EDT) Pathologist [facility] Vancomycin, Peak, Plasma 23.8 20.0 - 40.0 ug/mL 11/10/2024 11:25 AM EDT [facility] Blood Venous blood specimen / Unknown Venipuncture / Unknown 11/10/2024 10:56 AM EDT 11/10/2024 11:00 AM EDT Narrative [facility] - 11/10/2024 11:25 AM EDT Therapeutic Peak level: 20-40ug/mL Supra-therapeutic Peak level: >40 ug/mL us Abigail Seay MD LAB BLOOD ORDERABLES Final Res ult [facility] [address] [place] [address] * (ABNORMAL) POCT glucose meter (11/10/2024 8:03 [...] Comment 11/10/2024 8:04 AM EDT HEALTHCARE LAB Customs Guard ID Esperanza Parks 11/10/2024 8:04 AM EDT [facility] Device ID [id number] 11/10/2024 8:04 AM EDT [facility] Specimen Type POC Capillary 11/10/2024 8:04 AM EDT [facility] Blood Capillary blood specimen / Unknown 11/10/2024 8:03 AM EDT 11/10/2024 8:04 AM EDT us Nathaly Nowak MD LAB POINT OF CARE TE ST DOCKED DEVICE UNSOLICITED RESULTS Final Result Performing Organization Address City/[facility]/ZIP Co de Phone Number [facility] [address] [place] [address] * Vancomycin, Trough, Plasma Please draw ~30 [...] AM EDT 11/10/2024 7:51 AM EDT Narrative [facility] - 11/10/2024 8:24 AM EDT Therapeutic Trough level: 10-20ug/mL Supra-therapeutic Trough level: >20 ug/mL us Abigail Seay MD LAB BLOOD ORDERABLES Final Res ult [facility] [address] [place] [address] * (ABNORMAL) CBC and Differential (11/10/2024 12:31 AM EDT) WBC Count 10.80(H) 3.70 - 10.30 10*3/uL LAB HEMATOLOGY METHOD 11/10/2024 12:53 AM EDT [facility] RBC Count 3.06(L) 4.60 - 6.10 10*6/uL LAB HEMATOLOGY METHOD 11/10/2024 12:53 AM EDT [facility] HGB 9.1(L) 13.7 - 17.5 g/dL LAB HEMATOLOGY METHOD 11/10/2024 12:53 AM EDT [facility] HCT 28.0(L) 40.0 - 51.0 % LAB HEMATOLOGY METHOD 11/10/2024 12:53 AM EDT [facility] Platelet Count 501(H) 155 - 369 10*3/uL LAB HEMATOLOGY METHOD 11/10/2024 12:53 AM EDT [facility] MCV 92 79 - 98 fL LAB HEMATOLOGY METHOD 11/10/2024 12:53 AM EDT [facility] MCH 29.7 26.0 - 32.0 pg LAB HEMATOLOGY METHOD 11/10/2024 12:53 AM EDT [facility] MCHC 32.5 30.7 - 35.5 g/dL LAB HEMATOLOGY METHOD 11/10/2024 12:53 AM EDT [facility] RDW 13.2 11.5 - 14.5 % LAB HEMATOLOGY METHOD 11/10/2024 12:53 AM EDT [facility] MPV 8.8 8.8 - 12.5 fL LAB HEMATOLOGY METHOD 11/10/2024 12:53 AM EDT [facility] nRBC 0.0 <=0.0 per 100 WBCs LAB HEMATOLOGY METHOD 11/10/2024 12:53 AM EDT [facility] Differential Type Automated LAB HEMATOLOGY METHOD 11/10/2024 12:53 AM EDT [facility] Neutrophils % 77 % LAB HEMATOLOGY METHOD 11/10/2024 12:53 AM EDT [facility] Lymphocytes % 13 % LAB HEMATOLOGY METHOD 11/10/2024 12:53 AM EDT [facility] Monocytes % 8 % LAB HEMATOLOGY METHOD 11/10/2024 12:53 AM EDT [facility] Eosinophils % 1 % LAB HEMATOLOGY METHOD 11/10/2024 12:53 AM EDT [facility] Basophils % 0 % LAB HEMATOLOGY METHOD 11/10/2024 12:53 AM EDT [facility] Immature Granulocytes % 1 % LAB HEMATOLOGY METHOD 11/10/2024 12:53 AM EDT [facility] Neutrophils Absolute 8.32(H) 1.60 - 6.10 10*3/uL LAB HEMATOLOGY METHOD 11/10/2024 12:53 AM EDT [facility] Lymphocytes Absolute 1.40 1.20 - 3.90 10*3/uL LAB HEMATOLOGY METHOD 11/10/2024 12:53 AM EDT [facility] Monocytes Absolute 0.89 0.30 - 0.90 10*3/uL LAB HEMATOLOGY METHOD 11/10/2024 12:53 AM EDT [facility] Eosinophils Absolute 0.09 0.00 - 0.50 10*3/uL LAB HEMATOLOGY METHOD 11/10/2024 12:53 AM EDT [facility] Basophils Absolute 0.04 0.00 - 0.10 10*3/uL LAB HEMATOLOGY METHOD 11/10/2024 12:53 AM EDT [facility] Immature Granulocytes Absolute 0.06 0.00 - 0.06 10*3/uL LAB HEMATOLOGY METHOD 11/10/2024 12:53 AM EDT [facility] Blood Venous blood specimen / Unknown Venipuncture / Unknown 11/10/2024 12:31 AM EDT 11/10/2024 12:37 AM EDT [facility] - 11/10/2024 12:53 AM EDT Therapeutic decision making should be based on absolute values, rather than percentages. us Nathaly Nowak MD LAB BLOOD ORDERABLES Final Resu lt [facility] [address] [place] [address] * (ABNORMAL) Comprehensive Metabolic Panel, Plasma (11/10/2024 12:31 AM EDT) Glucose, Plasma 185(H) 74 - 99 mg/dL 11/10/2024 1:05 AM EDT [facility] BUN, Plasma 9 8 - 23 mg/dL 11/10/2024 1:05 AM EDT [facility] Creatinine, Plasma 0.72 0.70 - 1.20 mg/dL 11/10/2024 1:05 AM EDT [facility] BUN/Creatinine Ratio 13 11/10/2024 1:05 AM EDT [facility] Sodium, Plasma 135(L) 136 - 145 mmol/L 11/10/2024 1:05 AM EDT [facility] Potassium, Plasma 4.0 3.6 - 4.9 mmol/L 11/10/2024 1:05 AM EDT [facility] Chloride, Plasma 106 97 - 107 mmol/L 11/10/2024 1:05 AM EDT [facility] CO2, Plasma 19(L) 22 - 29 mmol/L 11/10/2024 1:05 AM EDT [facility] Anion Gap 10 6 - 16 mmol/L 11/10/2024 1:05 AM EDT [facility] Total Calcium, Plasma 7.8(L) 8.9 - 10.2 mg/dL 11/10/2024 1:05 AM EDT [facility] Total Protein 5.6(L) 6.3 - 7.9 g/dL 11/10/2024 1:05 AM EDT [facility] Albumin, Plasma 3.1(L) 3.5 - 5.2 g/dL 11/10/2024 1:05 AM EDT [facility] AST, Plasma 33 10 - 50 U/L 11/10/2024 1:05 AM EDT [facility] ALT, Plasma 25 10 - 50 U/L 11/10/2024 1:05 AM EDT [facility] Alkaline Phosphatase, Plasma 108 40 - 115 U/L 11/10/2024 1:05 AM EDT [facility] Total Bilirubin, Plasma <0.2(L) 0.2 - 1.1 mg/dL 11/10/2024 1:05 AM EDT [facility] eGFRcr 101.4 mL/min/1.7 3m*2 11/10/2024 1:05 AM EDT [facility] Comment:Reported eGFRcr in m L/min/1.73m2 is based the CKD-EPI 2020 equation that does not use a race coefficient. Blood Venous blood specimen / Unknown Venipuncture / Unknown 11/10/2024 12:31 AM EDT 11/10/2024 12:37 AM EDT us Nathaly Nowak MD LAB BLOOD ORDERABLES Final Resu lt [facility] [address] [place] [address] * (ABNORMAL) POCT glucose meter (11/09/2024 8:04 [...] Comment 11/09/2024 8:06 PM EDT [facility] Customs Guard ID Maximiliano Hansen II 11/09/2024 8:06 PM EDT [facility] LAB Device ID [id number] 11/09/2024 8:06 PM EDT [facility] Specimen Type POC Capillary 11/09/2024 8:06 PM EDT [facility] Blood Capillary blood specimen / Unknown 11/09/2024 8:04 PM EDT 11/09/2024 8:06 PM EDT Nathaly Nowak MD LAB POINT OF CARE TE ST DOCKED DEVICE UNSOLICITED RESULTS Final Result Performing Organization Address [facility] de Phone Number [facility] [address] [place] [address] * (ABNORMAL) POCT glucose meter (11/09/2024 4:36 [...] Comment 11/09/2024 4:38 PM EDT [facility] Customs Guard ID Kristina Sosa 11/09/2024 4:38 PM EDT [facility] LAB Device ID [id number] 11/09/2024 4:38 PM EDT [facility] Specimen Type POC Capillary 11/09/2024 4:38 PM EDT [facility] Blood Capillary blood specimen / Unknown 11/09/2024 4:36 PM EDT 11/09/2024 4:38 PM EDT us Nathaly Nowak MD LAB POINT OF CARE TE ST DOCKED DEVICE UNSOLICITED RESULTS Final Result Performing Organization Address City/[facility] Co de Phone Number [facility] [address] [place] [address] * PICC SINGLE LUMEN ([employer] LINK) (11/09/2024 1:11 PM EDT) Narrative Estefani Barraza RN - 11/09/2024 1:11 PM EDT Estefani Barraza RN 11/09/2024 1:12 PM Insert PICC line Date/Time: 11/09/2024 1:11 PM Performed by: Estefani Barraza RN Authorized by: Nathaly Nowak MD [place] Protocol: Verbal consent obtained?: Yes Written consent [...] selection rationale: Left pacemaker Catheter Lot #: [id number] 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: [employer] Catheter placed: Single lumen Catheter size: 4 [...] - 99 mg/dL 11/09/2024 11:51 AM EDT [facility] Comment:Accuracy of a glucos e result [...] 11/09/2024 11:51 AM EDT [facility] Customs Guard Kristian Greco 11/09/2024 11:51 AM EDT HEALTH[facility]ARE LAB Device ID [id number] 11/09/2024 11:51 AM EDT [facility] Specimen Type POC Capillary 11/09/2024 11:51 AM EDT [facility] Blood Capillary blood specimen / Unknown 11/09/2024 11:50 AM EDT 11/09/2024 11:51 AM EDT Nathaly Nowak MD LAB POINT OF CARE TE ST DOCKED DEVICE UNSOLICITED RESULTS Final Result Performing Organization Address City/[facility]/ZIP Co de Phone Number [facility] [address] [place] [address] * (ABNORMAL) POCT glucose meter (11/09/2024 8:14 AM EDT) [facility] [address] POCT Glucose 153(H) 74 - 99 mg/dL [...] Comment 11/09/2024 8:15 AM EDT [facility] Customs Guard ID Kristian Sosa 11/09/2024 8:15 AM EDT [facility] LAB Device ID [id number] 11/09/2024 8:15 AM EDT [facility] Specimen Type POC Capillary 11/09/2024 8:15 AM EDT [facility] Blood Capillary blood specimen / Unknown 11/09/2024 8:14 AM EDT 11/09/2024 8:15 AM EDT us Nathaly Nowak MD LAB POINT OF CARE TE ST DOCKED DEVICE UNSOLICITED RESULTS Final Result Performing Organization Address City/[facility]/ZIP Co de Phone Number [facility] [address] [place] [address] * (ABNORMAL) CBC and Differential (11/09/2024 4:15 AM EDT) [facility] [address] WBC Count 10.27 3.70 - 10.30 10*3/uL LAB HEMATOLOGY METHOD 11/09/2024 4:26 AM EDT [facility] RBC Count 3.14(L) 4.60 - 6.10 10*6/uL LAB HEMATOLOGY METHOD 11/09/2024 4:26 AM EDT [facility] HGB 9.2(L) 13.7 - 17.5 g/dL LAB HEMATOLOGY METHOD 11/09/2024 4:26 AM EDT [facility] HCT 28.3(L) 40.0 - 51.0 % LAB HEMATOLOGY METHOD 11/09/2024 4:26 AM EDT [facility] Platelet Count 468(H) 155 - 369 10*3/uL LAB HEMATOLOGY METHOD 11/09/2024 4:26 AM EDT [facility] MCV 90 79 - 98 fL LAB HEMATOLOGY METHOD 11/09/2024 4:26 AM EDT [facility] MCH 29.3 26.0 - 32.0 pg LAB HEMATOLOGY METHOD 11/09/2024 4:26 AM EDT [facility] MCHC 32.5 30.7 - 35.5 g/dL LAB HEMATOLOGY METHOD 11/09/2024 4:26 AM EDT [facility] RDW 13.1 11.5 - 14.5 % LAB HEMATOLOGY METHOD 11/09/2024 4:26 AM EDT [facility] MPV 8.7(L) 8.8 - 12.5 fL LAB HEMATOLOGY METHOD 11/09/2024 4:26 AM EDT [facility] nRBC 0.0 <=0.0 per 100 WBCs LAB HEMATOLOGY METHOD 11/09/2024 4:26 AM EDT [facility] Differential Type Automated LAB HEMATOLOGY METHOD 11/09/2024 4:26 AM EDT [facility] Neutrophils % 77 % LAB HEMATOLOGY METHOD 11/09/2024 4:26 AM EDT [facility] Lymphocytes % 13 % LAB HEMATOLOGY METHOD 11/09/2024 4:26 AM EDT [facility] Monocytes % 8 % LAB HEMATOLOGY METHOD 11/09/2024 4:26 AM EDT [facility] Eosinophils % 1 % LAB HEMATOLOGY METHOD 11/09/2024 4:26 AM EDT [facility] Basophils % 0 % LAB HEMATOLOGY METHOD 11/09/2024 4:26 AM EDT [facility] Immature Granulocytes % 1 % LAB HEMATOLOGY METHOD 11/09/2024 4:26 AM EDT [facility] Neutrophils Absolute 7.97(H) 1.60 - 6.10 10*3/uL LAB HEMATOLOGY METHOD 11/09/2024 4:26 AM EDT [facility] Lymphocytes Absolute 1.32 1.20 - 3.90 10*3/uL LAB HEMATOLOGY METHOD 11/09/2024 4:26 AM EDT [facility] Monocytes Absolute 0.83 0.30 - 0.90 10*3/uL LAB HEMATOLOGY METHOD 11/09/2024 4:26 AM EDT [facility] Eosinophils Absolute 0.07 0.00 - 0.50 10*3/uL LAB HEMATOLOGY METHOD 11/09/2024 4:26 AM EDT [facility] Basophils Absolute 0.03 0.00 - 0.10 10*3/uL LAB HEMATOLOGY METHOD 11/09/2024 4:26 AM EDT [facility] Immature Granulocytes Absolute 0.05 0.00 - 0.06 10*3/uL LAB HEMATOLOGY METHOD 11/09/2024 4:26 AM EDT [facility] Blood Venous blood specimen / Unknown Venipuncture / Unknown 11/09/2024 4:15 AM EDT 11/09/2024 4:18 AM EDT Narrative [facility] - 11/09/2024 4:26 AM EDT Therapeutic decision making should be based on absolute values, rather than percentages. us Nathaly Nowak MD LAB BLOOD ORDERABLES Final Resu lt [facility] [address] [place] [address] * (ABNORMAL) Comprehensive Metabolic Panel, Plasma (11/09/2024 4:15 AM EDT) Glucose, Plasma 171(H) 74 - 99 mg/dL 11/09/2024 4:47 AM EDT [facility] BUN, Plasma 9 8 - 23 mg/dL 11/09/2024 4:47 AM EDT [facility] Creatinine, Plasma 0.67(L) 0.70 - 1.20 mg/dL 11/09/2024 4:47 AM EDT [facility] BUN/Creatinine Ratio 13 11/09/2024 4:47 AM EDT [facility] Sodium, Plasma 134(L) 136 - 145 mmol/L 11/09/2024 4:47 AM EDT [facility] Potassium, Plasma 4.1 3.6 - 4.9 mmol/L 11/09/2024 4:47 AM EDT [facility] Chloride, Plasma 104 97 - 107 mmol/L 11/09/2024 4:47 AM EDT [facility] CO2, Plasma 21(L) 22 - 29 mmol/L 11/09/2024 4:47 AM EDT [facility] Anion Gap 9 6 - 16 mmol/L 11/09/2024 4:47 AM EDT [facility] Total Calcium, Plasma 8.4(L) 8.9 - 10.2 mg/dL 11/09/2024 4:47 AM EDT [facility] Total Protein 5.8(L) 6.3 - 7.9 g/dL 11/09/2024 4:47 AM EDT [facility] Albumin, Plasma 3.2(L) 3.5 - 5.2 g/dL 11/09/2024 4:47 AM EDT [facility] AST, Plasma 18 10 - 50 U/L 11/09/2024 4:47 AM EDT [facility] ALT, Plasma 17 10 - 50 U/L 11/09/2024 4:47 AM EDT [facility] Alkaline Phosphatase, Plasma 110 40 - 115 U/L 11/09/2024 4:47 AM EDT [facility] Total Bilirubin, Plasma <0.2(L) 0.2 - 1.1 mg/dL 11/09/2024 4:47 AM EDT [facility] eGFRcr 103.6 mL/min/1.7 3m*2 11/09/2024 4:47 AM EDT [facility] Comment:Reported eGFRcr in m L/min/1.73m2 is based the CKD-EPI 2020 equation that does not use a race coefficient. Blood Venous blood specimen / Unknown Venipuncture / Unknown 11/09/2024 4:15 AM EDT 11/09/2024 4:18 AM EDT Nathaly Nwoak MD LAB BLOOD ORDERABLES Final Resu lt Performing Organization Address City/[facility] Co de Phone Number [facility] [address] [place] [address] * (ABNORMAL) POCT glucose meter (11/09/2024 3:30 [...] for testing. Comment 11/09/2024 3:31 AM EDT [facility] Customs Guard ID Maximiliano Hansen II 11/09/2024 3:31 AM EDT HEALTHCARE LAB Device ID [id number] 11/09/2024 3:31 AM EDT [facility] Specimen Type POC Capillary 11/09/2024 3:31 AM EDT [facility] Blood Capillary blood specimen / Unknown 11/09/2024 3:30 AM EDT 11/09/2024 3:31 AM EDT Nathaly Nowak MD LAB POINT OF CARE TE ST DOCKED DEVICE UNSOLICITED RESULTS Final Result Performing Organization Address City/[facility]/ZIP Co de Phone Number [facility] [address] [place] [address] * (ABNORMAL) POCT glucose meter (11/08/2024 7:21 [...] Comment 11/08/2024 7:22 PM EDT [facility] Customs Guard ID Maximiliano Hansen II 11/08/2024 7:22 PM EDT [facility] LAB Device ID [id number] 11/08/2024 7:22 PM EDT [facility] Specimen Type POC Capillary 11/08/2024 7:22 PM EDT [facility] Blood Capillary blood specimen / Unknown 11/08/2024 7:21 PM EDT 11/08/2024 7:22 PM EDT Nathaly Nowak MD LAB POINT OF CARE TE ST DOCKED DEVICE UNSOLICITED RESULTS Final Result Performing Organization Address City/State/[facility] Co de Phone Number [facility]ARE LAB [address] [place] [address] * (ABNORMAL) POCT glucose meter (11/08/2024 5:12 PM EDT) [facility] [...] Comment 11/08/2024 5:14 PM EDT [facility] Customs Guard ID Estefani Sheth 11/08/2024 5:14 PM EDT [facility] LAB Device ID [id number] 11/08/2024 5:14 PM EDT [facility] Specimen Type POC Capillary 11/08/2024 5:14 PM EDT [facility] Blood Capillary blood specimen / Unknown 11/08/2024 5:12 PM EDT 11/08/2024 5:14 PM EDT Nathaly Nowak MD LAB POINT OF CARE TE ST DOCKED DEVICE UNSOLICITED RESULTS Final Result Performing Organization Address [facility] Co de Phone Number [facility] [address] [place] [address] * (ABNORMAL) POCT glucose meter (11/08/2024 12:03 PM EDT) Pathologist [facility] POCT Glucose 191(H) 74 - 99 mg/dL [...] testing. Comment 11/08/2024 12:05 PM EDT [facility] Customs Guard ID Estefani Sheth 11/08/2024 12:05 PM EDT HEALTH[facility] LAB Device ID [id number] 11/08/2024 12:05 PM EDT [facility] Specimen Type POC Capillary 11/08/2024 12:05 PM EDT [facility] Blood Capillary blood specimen / Unknown 11/08/2024 12:03 PM EDT 11/08/2024 12:05 PM EDT Nathaly Nowak MD LAB POINT OF CARE TE ST DOCKED DEVICE UNSOLICITED RESULTS Final Result Performing Organization Address [facility] Co de Phone Number [facility] [address] [place] [address] * Vancomycin, Peak, Plasma Please draw ~2 hours after 11/08 0600 dose of vancomycin finishes infusing.Consider obtaining level via peripheral stick. If peripheral stick is not feasible, please ensure that line is flushed well prior to drawing level.... (11/08/2024 9:24 AM EDT) Pathologist [facility] Vancomycin, Peak, Plasma 29.1 20.0 - 40.0 ug/mL 11/08/2024 10:31 AM EDT [facility] Blood Venous blood specimen / Unknown Venipuncture / Unknown 11/08/2024 9:24 AM EDT 11/08/2024 9:47 AM EDT Narrative [facility] - 11/08/2024 10:31 AM EDT Therapeutic Peak level: 20-40ug/mL Supra-therapeutic Peak level: >40 ug/mL Nathaly Nowak MD LAB BLOOD ORDERABLES Final Resu lt Performing Organization Address [facility] Co de Phone Number [facility] [address] [place] [address] * (ABNORMAL) POCT glucose meter (11/08/2024 8:00 AM EDT) [facility] [address] POCT Glucose 150(H) 74 - 99 mg/dL [...] Comment 11/08/2024 8:01 AM EDT [facility] Customs Guard ID Estefani Sheth 11/08/2024 8:01 AM EDT [facility]ALTH[facility]ARE LAB Device ID [id number] 11/08/2024 8:01 AM EDT [facility] Specimen Type POC Capillary 11/08/2024 8:01 AM EDT [facility] Blood Capillary blood specimen / Unknown 11/08/2024 8:00 AM EDT 11/08/2024 8:01 AM EDT Nathaly Nowak MD LAB POINT OF CARE TE ST DOCKED DEVICE UNSOLICITED RESULTS Final Result Performing Organization Address City/[facility]/ZIP Co de Phone Number [facility] [address] [place] [address] * (ABNORMAL) CBC and Differential (11/08/2024 4:39 AM EDT) [facility] [address] WBC Count 9.18 3.70 - 10.30 10*3/uL LAB HEMATOLOGY METHOD 11/08/2024 4:58 AM EDT [facility] RBC Count 3.11(L) 4.60 - 6.10 10*6/uL LAB HEMATOLOGY METHOD 11/08/2024 4:58 AM EDT [facility] HGB 9.2(L) 13.7 - 17.5 g/dL LAB HEMATOLOGY METHOD 11/08/2024 4:58 AM EDT [facility] HCT 28.9(L) 40.0 - 51.0 % LAB HEMATOLOGY METHOD 11/08/2024 4:58 AM EDT [facility] Platelet Count 485(H) 155 - 369 10*3/uL LAB HEMATOLOGY METHOD 11/08/2024 4:58 AM EDT [facility] MCV 93 79 - 98 fL LAB HEMATOLOGY METHOD 11/08/2024 4:58 AM EDT [facility] MCH 29.6 26.0 - 32.0 pg LAB HEMATOLOGY METHOD 11/08/2024 4:58 AM EDT [facility] MCHC 31.8 30.7 - 35.5 g/dL LAB HEMATOLOGY METHOD 11/08/2024 4:58 AM EDT [facility] RDW 13.0 11.5 - 14.5 % LAB HEMATOLOGY METHOD 11/08/2024 4:58 AM EDT [facility] MPV 8.8 8.8 - 12.5 fL LAB HEMATOLOGY METHOD 11/08/2024 4:58 AM EDT [facility] nRBC 0.0 <=0.0 per 100 WBCs LAB HEMATOLOGY METHOD 11/08/2024 4:58 AM EDT [facility] Differential Type Automated LAB HEMATOLOGY METHOD 11/08/2024 4:58 AM EDT [facility] Neutrophils % 69 % LAB HEMATOLOGY METHOD 11/08/2024 4:58 AM EDT [facility] Lymphocytes % 17 % LAB HEMATOLOGY METHOD 11/08/2024 4:58 AM EDT [facility] Monocytes % 10 % LAB HEMATOLOGY METHOD 11/08/2024 4:58 AM EDT [facility] Eosinophils % 2 % LAB HEMATOLOGY METHOD 11/08/2024 4:58 AM EDT [facility] Basophils % 1 % LAB HEMATOLOGY METHOD 11/08/2024 4:58 AM EDT [facility] Immature Granulocytes % 1 % LAB HEMATOLOGY METHOD 11/08/2024 4:58 AM EDT [facility] Neutrophils Absolute 6.40(H) 1.60 - 6.10 10*3/uL LAB HEMATOLOGY METHOD 11/08/2024 4:58 AM EDT [facility] Lymphocytes Absolute 1.59 1.20 - 3.90 10*3/uL LAB HEMATOLOGY METHOD 11/08/2024 4:58 AM EDT [facility] Monocytes Absolute 0.87 0.30 - 0.90 10*3/uL LAB HEMATOLOGY METHOD 11/08/2024 4:58 AM EDT [facility] Eosinophils Absolute 0.22 0.00 - 0.50 10*3/uL LAB HEMATOLOGY METHOD 11/08/2024 4:58 AM EDT [facility] Basophils Absolute 0.05 0.00 - 0.10 10*3/uL LAB HEMATOLOGY METHOD 11/08/2024 4:58 AM EDT [facility] Immature Granulocytes Absolute 0.05 0.00 - 0.06 10*3/uL LAB HEMATOLOGY METHOD 11/08/2024 4:58 AM EDT [facility] Blood Venous blood specimen / Unknown Venipuncture / Unknown 11/08/2024 4:39 AM EDT 11/08/2024 4:49 AM EDT Narrative [facility] - 11/08/2024 4:58 AM EDT Therapeutic decision making should be based on absolute values, rather than percentages. us Nathaly Nowak MD LAB BLOOD ORDERABLES Final Resu lt [facility] [address] [place] [address] * (ABNORMAL) Comprehensive Metabolic Panel, Plasma (11/08/2024 4:39 AM EDT) Glucose, Plasma 255(H) 74 - 99 mg/dL 11/08/2024 5:20 AM EDT [facility] BUN, Plasma 10 8 - 23 mg/dL 11/08/2024 5:20 AM EDT [facility] Creatinine, Plasma 0.75 0.70 - 1.20 mg/dL 11/08/2024 5:20 AM EDT [facility] BUN/Creatinine Ratio 13 11/08/2024 5:20 AM EDT [facility] Sodium, Plasma 133(L) 136 - 145 mmol/L 11/08/2024 5:20 AM EDT [facility] Potassium, Plasma 5.2(H) 3.6 - 4.9 mmol/L 11/08/2024 5:20 AM EDT [facility] Chloride, Plasma 105 97 - 107 mmol/L 11/08/2024 5:20 AM EDT [facility] CO2, Plasma 20(L) 22 - 29 mmol/L 11/08/2024 5:20 AM EDT [facility] Anion Gap 8 6 - 16 mmol/L 11/08/2024 5:20 AM EDT [facility] Total Calcium, Plasma 7.7(L) 8.9 - 10.2 mg/dL 11/08/2024 5:20 AM EDT [facility] Total Protein 5.6(L) 6.3 - 7.9 g/dL 11/08/2024 5:20 AM EDT [facility] Albumin, Plasma 2.8(L) 3.5 - 5.2 g/dL 11/08/2024 5:20 AM EDT [facility] AST, Plasma 20 10 - 50 U/L 11/08/2024 5:20 AM EDT [facility] Comment:Hemolyzed, result ma y be falsely increased. ALT, Plasma 14 10 - 50 U/L 11/08/2024 5:20 AM EDT [facility] Alkaline Phosphatase, Plasma 119(H) 40 - 115 U/L 11/08/2024 5:20 AM EDT [facility] Total Bilirubin, Plasma <0.2(L) 0.2 - 1.1 mg/dL 11/08/2024 5:20 AM EDT [facility] eGFRcr 100.1 mL/min/1.7 3m*2 11/08/2024 5:20 AM EDT [facility] Comment:Reported eGFRcr in m L/min/1.73m2 is based the CKD-EPI 2020 equation that does not use a race coefficient. Blood Venous blood specimen / Unknown Venipuncture / Unknown 11/08/2024 4:39 AM EDT 11/08/2024 4:43 AM EDT Nathaly Nowak MD LAB BLOOD ORDERABLES Final Resu lt Performing Organization Address [facility] Co de Phone Number [facility] [address] [place] [address] * Vancomycin, Trough, Plasma Please draw ~30 minutes prior to dose due at 0600 on 11/08. Please do NOThold dose awaiting level to return. Consider obtaining level via peripheral stick. If peripheral stick is not feasible, please ensure that line is... (11/08/2024 4:39 AM EDT) [facility] [address] Vancomycin, Trough, Plasma 18.7 10.0 - 20.0 ug/mL 11/08/2024 5:22 AM EDT [facility] Blood Venous blood specimen / Unknown Venipuncture / Unknown 11/08/2024 4:39 AM EDT 11/08/2024 4:43 AM EDT Narrative [facility] - 11/08/2024 5:22 AM EDT Therapeutic Trough level: 10-20ug/mL Supra-therapeutic Trough level: >20 ug/mL Nathaly Nowak MD LAB BLOOD ORDERABLES Final Resu Performing Organization Address [facility] [place] [address] * (ABNORMAL) POCT glucose meter (11/07/2024 7:26 PM EDT) [facility] [address] POCT Glucose 172(H) 74 - 99 mg/dL [...] 11/07/2024 7:28 PM EDT [facility] Customs Guard ID Maximiliano Hansen II 11/07/2024 7:28 PM EDT [facility] Device ID [id number] 11/07/2024 7:28 PM EDT [facility] Specimen Type POC Capillary 11/07/2024 7:28 PM EDT [facility] Blood Capillary blood specimen / Unknown 11/07/2024 7:26 PM EDT 11/07/2024 7:28 PM EDT Nathaly Nowak MD LAB POINT OF CARE TE ST DOCKED DEVICE UNSOLICITED RESULTS Final Result Performing Organization Address City/[facility]/ZIP Co de Phone Number [facility] [address] [place] [address] * (ABNORMAL) POCT glucose meter (11/07/2024 5:51 [...] Comment 11/07/2024 5:52 PM EDT [facility] Customs Guard ID Brigitte Castellon 11/07/2024 5:52 PM EDT [facility] Device ID [id number] 11/07/2024 5:52 PM EDT [facility] Specimen Type POC Capillary 11/07/2024 5:52 PM EDT [facility] Blood Capillary blood specimen / Unknown 11/07/2024 5:51 PM EDT 11/07/2024 5:52 PM EDT us Nathaly Nowak MD LAB POINT OF CARE TE ST DOCKED DEVICE UNSOLICITED RESULTS Final Result [facility] [address] [place] [address] * (ABNORMAL) POCT glucose meter (11/07/2024 4:47 [...] 11/07/2024 4:48 PM EDT [facility] Customs Guard ID Estefani Sheth 11/07/2024 4:48 PM EDT [facility] Device ID [id number] 11/07/2024 4:48 PM EDT [facility] Specimen Type POC Capillary 11/07/2024 4:48 PM EDT [facility] Blood Capillary blood specimen / Unknown 11/07/2024 4:47 PM EDT 11/07/2024 4:48 PM EDT us Nathaly Nowak MD LAB POINT OF CARE TE ST DOCKED DEVICE UNSOLICITED RESULTS Final Result Performing Organization Address City/State/[facility] Co de Phone Number [facility] [address] [place] [address] * (ABNORMAL) POCT glucose meter (11/07/2024 12:22 PM EDT) [facility] [address] POCT Glucose 172(H) 74 - 99 mg/dL [...] 11/07/2024 12:24 PM EDT [facility] Customs Guard ID Estefani Sheth 11/07/2024 12:24 PM EDT [facility] Device ID [id number] 11/07/2024 12:24 PM EDT [facility] Specimen Type POC Capillary 11/07/2024 12:24 PM EDT [facility] Blood Capillary blood specimen / Unknown 11/07/2024 12:22 PM EDT 11/07/2024 12:24 PM EDT us Nathaly Nowak MD LAB POINT OF CARE TE ST DOCKED DEVICE UNSOLICITED RESULTS Final Result [facility] [address] [place] [address] * (ABNORMAL) CBC and Differential (11/07/2024 11:37 AM EDT) WBC Count 9.96 3.70 - 10.30 10*3/uL LAB HEMATOLOGY METHOD 11/07/2024 12:33 PM EDT [facility] RBC Count 2.81(L) 4.60 - 6.10 10*6/uL LAB HEMATOLOGY METHOD 11/07/2024 12:33 PM EDT [facility] HGB 8.5(L) 13.7 - 17.5 g/dL LAB HEMATOLOGY METHOD 11/07/2024 12:33 PM EDT [facility] HCT 26.0(L) 40.0 - 51.0 % LAB HEMATOLOGY METHOD 11/07/2024 12:33 PM EDT [facility] Platelet Count 524(H) 155 - 369 10*3/uL LAB HEMATOLOGY METHOD 11/07/2024 12:33 PM EDT [facility] MCV 93 79 - 98 fL LAB HEMATOLOGY METHOD 11/07/2024 12:33 PM EDT [facility] MCH 30.2 26.0 - 32.0 pg LAB HEMATOLOGY METHOD 11/07/2024 12:33 PM EDT [facility] MCHC 32.7 30.7 - 35.5 g/dL LAB HEMATOLOGY METHOD 11/07/2024 12:33 PM EDT [facility] RDW 13.1 11.5 - 14.5 % LAB HEMATOLOGY METHOD 11/07/2024 12:33 PM EDT [facility] MPV 9.0 8.8 - 12.5 fL LAB HEMATOLOGY METHOD 11/07/2024 12:33 PM EDT [facility] nRBC 0.0 <=0.0 per 100 WBCs LAB HEMATOLOGY METHOD 11/07/2024 12:33 PM EDT [facility] Differential Type Automated LAB HEMATOLOGY METHOD 11/07/2024 12:33 PM EDT [facility] Neutrophils % 72 % LAB HEMATOLOGY METHOD 11/07/2024 12:33 PM EDT [facility] Lymphocytes % 17 % LAB HEMATOLOGY METHOD 11/07/2024 12:33 PM EDT [facility] Monocytes % 9 % LAB HEMATOLOGY METHOD 11/07/2024 12:33 PM EDT [facility] Eosinophils % 1 % LAB HEMATOLOGY METHOD 11/07/2024 12:33 PM EDT [facility] Basophils % 1 % LAB HEMATOLOGY METHOD 11/07/2024 12:33 PM EDT [facility] Immature Granulocytes % 0 % LAB HEMATOLOGY METHOD 11/07/2024 12:33 PM EDT [facility] Neutrophils Absolute 7.19(H) 1.60 - 6.10 10*3/uL LAB HEMATOLOGY METHOD 11/07/2024 12:33 PM EDT [facility] Lymphocytes Absolute 1.66 1.20 - 3.90 10*3/uL LAB HEMATOLOGY METHOD 11/07/2024 12:33 PM EDT [facility] Monocytes Absolute 0.88 0.30 - 0.90 10*3/uL LAB HEMATOLOGY METHOD 11/07/2024 12:33 PM EDT [facility] Eosinophils Absolute 0.14 0.00 - 0.50 10*3/uL LAB HEMATOLOGY METHOD 11/07/2024 12:33 PM EDT [facility] Basophils Absolute 0.05 0.00 - 0.10 10*3/uL LAB HEMATOLOGY METHOD 11/07/2024 12:33 PM EDT [facility] Immature Granulocytes Absolute 0.04 0.00 - 0.06 10*3/uL LAB HEMATOLOGY METHOD 11/07/2024 12:33 PM EDT [facility] Blood Venous blood specimen / Unknown Venipuncture / Unknown 11/07/2024 11:37 AM EDT 11/07/2024 12:24 PM EDT [facility] - 11/07/2024 12:33 PM EDT Therapeutic decision making should be based on absolute values, rather than percentages. us Nathaly Nowak MD LAB BLOOD ORDERABLES Final Resu lt [facility] [address] [place] [address] * (ABNORMAL) Comprehensive Metabolic Panel, Plasma (11/07/2024 11:37 AM EDT) Glucose, Plasma 173(H) 74 - 99 mg/dL 11/07/2024 1:31 PM EDT [facility] BUN, Plasma 13 8 - 23 mg/dL 11/07/2024 1:31 PM EDT [facility] Creatinine, Plasma 0.92 0.70 - 1.20 mg/dL 11/07/2024 1:31 PM EDT [facility] BUN/Creatinine Ratio 14 11/07/2024 1:31 PM EDT [facility] Sodium, Plasma 136 136 - 145 mmol/L 11/07/2024 1:31 PM EDT [facility] Potassium, Plasma 4.0 3.6 - 4.9 mmol/L 11/07/2024 1:31 PM EDT [facility] Chloride, Plasma 104 97 - 107 mmol/L 11/07/2024 1:31 PM EDT [facility] CO2, Plasma 23 22 - 29 mmol/L 11/07/2024 1:31 PM EDT [facility] Anion Gap 9 6 - 16 mmol/L 11/07/2024 1:31 PM EDT [facility] Total Calcium, Plasma 7.8(L) 8.9 - 10.2 mg/dL 11/07/2024 1:31 PM EDT [facility] Total Protein 5.7(L) 6.3 - 7.9 g/dL 11/07/2024 1:31 PM EDT [facility] Albumin, Plasma 3.0(L) 3.5 - 5.2 g/dL 11/07/2024 1:31 PM EDT [facility] AST, Plasma 15 10 - 50 U/L 11/07/2024 1:31 PM EDT [facility] ALT, Plasma 16 10 - 50 U/L 11/07/2024 1:31 PM EDT [facility] Alkaline Phosphatase, Plasma 119(H) 40 - 115 U/L 11/07/2024 1:31 PM EDT [facility] Total Bilirubin, Plasma <0.2(L) 0.2 - 1.1 mg/dL 11/07/2024 1:31 PM EDT [facility] eGFRcr 92.3 mL/min/1.7 3m*2 11/07/2024 1:31 PM EDT [facility] Comment:Reported eGFRcr in m L/min/1.73m2 is based the CKD-EPI 2020 equation that does not use a race coefficient. Blood Venous blood specimen / Unknown Venipuncture / Unknown 11/07/2024 11:37 AM EDT 11/07/2024 12:23 PM EDT Nathaly Nowak MD LAB BLOOD ORDERABLES Final Resu lt Performing Organization Address City/[facility]/ZIP Co de Phone Number [facility] [address] [place] [address] * Type and Screen (11/07/2024 11:37 AM [...] ORDERABLES F inal Result Performing Organization Address [facility] Co de Phone Number BLOOD BANK [address] [place] [address], * (ABNORMAL) POCT glucose meter (11/07/2024 10:34 AM EDT) POCT Glucose 199(H) 74 - 99 mg/dL 11/07/2024 10:36 AM EDT [facility] Comment:Accuracy of a glucos e result [...] Comment 11/07/2024 10:36 AM EDT [facility] Customs Guard ID Joy Iraheta 11/07/2024 10:36 AM EDT [facility] Device ID [id number] 11/07/2024 10:36 AM EDT [facility] Specimen Type POC Capillary 11/07/2024 10:36 AM EDT [facility] Blood Capillary blood specimen / Unknown 11/07/2024 10:34 AM EDT 11/07/2024 10:36 AM EDT Nathaly Nowak MD LAB POINT OF CARE TE ST DOCKED DEVICE UNSOLICITED RESULTS Final Result Performing Organization Address City/[facility] de Phone Number HEALTHCARE LAB [address] [place] [address] * (ABNORMAL) POCT glucose meter (11/07/2024 9:34 AM EDT) [facility] Signature POCT Glucose 208(H) 74 - 99 [...] Comment 11/07/2024 9:36 AM EDT [facility] Customs Guard ID Brigitte Castellon 11/07/2024 9:36 AM EDT [facility] Device ID [id number] 11/07/2024 9:36 AM EDT [facility] Specimen Type POC Capillary 11/07/2024 9:36 AM EDT [facility] Blood Capillary blood specimen / Unknown 11/07/2024 9:34 AM EDT 11/07/2024 9:36 AM EDT Nathaly Nowak MD LAB POINT OF CARE TE ST DOCKED DEVICE UNSOLICITED RESULTS Final Result Performing Organization Address City/[facility] Co de Phone Number [facility] [address] [place] [address] * (ABNORMAL) POCT glucose meter (11/07/2024 8:20 AM EDT) [facility] [address] POCT Glucose 137(H) 74 - 99 mg/dL [...] Comment 11/07/2024 8:22 AM EDT [facility] Customs Guard ID Estefani Sheth 11/07/2024 8:22 AM EDT [facility] Device ID [id number] 11/07/2024 8:22 AM EDT [facility] Specimen Type POC Capillary 11/07/2024 8:22 AM EDT [facility] Blood Capillary blood specimen / Unknown 11/07/2024 8:20 AM EDT 11/07/2024 8:22 AM EDT Nathaly Nowak MD LAB POINT OF CARE TE ST DOCKED DEVICE UNSOLICITED RESULTS Final Result [facility] [address] [place] [address] * (ABNORMAL) POCT glucose meter (11/07/2024 7:21 AM EDT) [facility] [address] POCT Glucose 151(H) 74 - 99 mg/dL [...] 11/07/2024 7:22 AM EDT [facility] Customs Guard ID Brigitte Castellon 11/07/2024 7:22 AM EDT [facility] Device ID [id number] 11/07/2024 7:22 AM EDT [facility] Specimen Type POC Capillary 11/07/2024 7:22 AM EDT [facility] Blood Capillary blood specimen / Unknown 11/07/2024 7:21 AM EDT 11/07/2024 7:22 AM EDT Nathaly Nowak MD LAB POINT OF CARE TE ST DOCKED DEVICE UNSOLICITED RESULTS Final Result Performing Organization Address City/[facility] Co de Phone Number [facility] [address] [place] [address] * (ABNORMAL) POCT glucose meter (11/07/2024 6:25 [...] Comment 11/07/2024 6:27 AM EDT [facility] Customs Guard ID Nelda Gerber 11/08/19 6:27 AM EDT [facility] LAB Device ID [id number] 11/07/2024 6:27 AM EDT [facility] Specimen Type POC Capillary 11/07/2024 6:27 AM EDT [facility] Blood Capillary blood specimen / Unknown 11/07/2024 6:25 AM EDT 11/07/2024 6:27 AM EDT us Nathaly Nowak MD LAB POINT OF CARE TE ST DOCKED DEVICE UNSOLICITED RESULTS Final Result Performing Organization Address City/[facility]/ZIP Co de Phone Number [facility] [address] [place] [address] * (ABNORMAL) POCT glucose meter (11/07/2024 5:03 [...] Comment 11/07/2024 5:08 AM EDT [facility] Customs Guard ID Nelda Gerber 11/08/19 5:08 AM EDT [facility] Device ID [id number] 11/07/2024 5:08 AM EDT [facility] Specimen Type POC Capillary 11/07/2024 5:08 AM EDT [facility] Blood Capillary blood specimen / Unknown 11/07/2024 5:03 AM EDT 11/07/2024 5:08 AM EDT Nathaly Nowak MD LAB POINT OF CARE TE ST DOCKED DEVICE UNSOLICITED RESULTS Final Result Performing Organization Address City/State/[facility] Co de Phone Number [facility] [address] [place] [address] * (ABNORMAL) POCT glucose meter (11/07/2024 4:16 AM EDT) [facility] [address] POCT Glucose 142(H) 74 - 99 mg/dL [...] Comment 11/07/2024 4:18 AM EDT [facility] Customs Guard ID Nelda Gerber 11/08/19 4:18 AM EDT [facility]ALTH[facility] LAB Device ID [id number] 11/07/2024 4:18 AM EDT [facility] Specimen Type POC Capillary 11/07/2024 4:18 AM EDT [facility] Blood Capillary blood specimen / Unknown 11/07/2024 4:16 AM EDT 11/07/2024 4:18 AM EDT us Nathaly Nowak MD LAB POINT OF CARE TE ST DOCKED DEVICE UNSOLICITED RESULTS Final Result [facility] [address] [place] [address] * (ABNORMAL) POCT glucose meter (11/07/2024 3:21 [...] testing. Comment 11/07/2024 3:23 AM EDT [facility] Customs Guard ID Nelda Gerber 11/08/19 3:23 AM EDT [facility] Device ID [id number] 11/07/2024 3:23 AM EDT [facility] Specimen Type POC Capillary 11/07/2024 3:23 AM EDT [facility] Blood Capillary blood specimen / Unknown 11/07/2024 3:21 AM EDT 11/07/2024 3:23 AM EDT us Nathaly Nowak MD LAB POINT OF CARE TE ST DOCKED DEVICE UNSOLICITED RESULTS Final Result Performing Organization Address City/[facility]/ZIP Co de Phone Number [facility] [address] [place] [address] * (ABNORMAL) POCT glucose meter (11/07/2024 2:10 [...] Comment 11/07/2024 2:12 AM EDT [facility]ARE [facility] Customs Guard ID Nelda Gerber 11/08/19 2:12 AM EDT [facility] Device ID [id number] 11/07/2024 2:12 AM EDT [facility] Specimen Type POC Capillary 11/07/2024 2:12 AM EDT [facility] Blood Capillary blood specimen / Unknown 11/07/2024 2:10 AM EDT 11/07/2024 2:12 AM EDT Nathaly Nowak MD LAB POINT OF CARE TE ST DOCKED DEVICE UNSOLICITED RESULTS Final Result Performing Organization Address City/[facility] Co de Phone Number [facility] [address] [place] [address] * (ABNORMAL) POCT glucose meter (11/07/2024 1:08 [...] Comment 11/07/2024 1:10 AM EDT [facility] Customs Guard ID Nelda Gerber 11/08/19 1:10 AM EDT [facility]ALTH[facility]ARE LAB Device ID [id number] 11/07/2024 1:10 AM EDT [facility] Specimen Type POC Capillary 11/07/2024 1:10 AM EDT [facility] Blood Capillary blood specimen / Unknown 11/07/2024 1:08 AM EDT 11/07/2024 1:10 AM EDT Nathaly Nowak MD LAB POINT OF CARE TE ST DOCKED DEVICE UNSOLICITED RESULTS Final Result Performing Organization Address City/[facility]/ZIP Co de Phone Number [facility] [address] [place] [address] * (ABNORMAL) POCT glucose meter (11/07/2024 12:10 AM EDT) Pathologist [facility] POCT Glucose 127(H) 74 - 99 mg/dL [...] Comment 11/07/2024 12:13 AM EDT [facility] Customs Guard ID Nelda Gerber 11/08/19 12:13 AM EDT [facility] Device ID [id number] 11/07/2024 12:13 AM EDT [facility] Specimen Type POC Capillary 11/07/2024 12:13 AM EDT [facility] Blood Capillary blood specimen / Unknown 11/07/2024 12:10 AM EDT 11/07/2024 12:13 AM EDT us Nathaly Nowak MD LAB POINT OF CARE TE ST DOCKED DEVICE UNSOLICITED RESULTS Final Result Performing Organization Address City/State/[facility] Co de Phone Number HE[facility]CARE LAB [address] [place] [address] * (ABNORMAL) POCT glucose meter (11/06/2024 11:14 PM EDT) [facility] [address] POCT Glucose 71(L) 74 - 99 mg/dL [...] 11/06/2024 11:16 PM EDT [facility] Customs Guard ID Nelda Gerber 11/07/19 11:16 PM EDT [facility] Device ID [id number] 11/06/2024 11:16 PM EDT HEALTHCARE LAB Specimen Type POC Capillary 11/06/2024 11:16 PM EDT [facility] LAB Blood Capillary blood specimen / Unknown 11/06/2024 11:14 PM EDT 11/06/2024 11:16 PM EDT Nathaly Nowak MD LAB POINT OF CARE TE ST DOCKED DEVICE UNSOLICITED RESULTS Final Result [facility] [address] [place] [address] * (ABNORMAL) POCT glucose meter (11/06/2024 10:07 [...] Comment 11/06/2024 10:09 PM EDT [facility] Customs Guard ID Nelda Gerber 11/07/19 10:09 PM EDT HEALTHCARE LAB Device ID [id number] 11/06/2024 10:09 PM EDT [facility] Specimen Type POC Capillary 11/06/2024 10:09 PM EDT [facility] Blood Capillary blood specimen / Unknown 11/06/2024 10:07 PM EDT 11/06/2024 10:09 PM EDT Nathaly Nowak MD LAB POINT OF CARE TE ST DOCKED DEVICE UNSOLICITED RESULTS Final Result [facility] [address] [place] [address] * (ABNORMAL) POCT glucose meter (11/06/2024 8:22 [...] Comment 11/06/2024 8:25 PM EDT [facility] Customs Guard ID Nelda Gerber 11/07/19 8:25 PM EDT [facility]ALTH[facility]ARE LAB Device ID [id number] 11/06/2024 8:25 PM EDT [facility] Specimen Type POC Capillary 11/06/2024 8:25 PM EDT [facility] Blood Capillary blood specimen / Unknown 11/06/2024 8:22 PM EDT 11/06/2024 8:25 PM EDT Nathaly Nowak MD LAB POINT OF CARE TE ST DOCKED DEVICE UNSOLICITED RESULTS Final Result Performing Organization Address City/State/[facility] Co de Phone Number [facility] [address] [place] [address] * (ABNORMAL) POCT glucose meter (11/06/2024 7:31 [...] Comment 11/06/2024 7:32 PM EDT [facility] Customs Guard ID Nelda Gerber 11/07/19 7:32 PM EDT [facility]ALTH[facility]ARE LAB Device ID [id number] 11/06/2024 7:32 PM EDT [facility] Specimen Type POC Capillary 11/06/2024 7:32 PM EDT [facility] Blood Capillary blood specimen / Unknown 11/06/2024 7:31 PM EDT 11/06/2024 7:32 PM EDT us Nathaly Nowak MD LAB POINT OF CARE TE ST DOCKED DEVICE UNSOLICITED RESULTS Final Result Performing Organization Address City/[facility]/ZIP Co de Phone Number [facility]ARE [facility] [address] [place] [address] * (ABNORMAL) POCT glucose meter (11/06/2024 6:15 PM EDT) [facility] [address] POCT Glucose 368(H) 74 - 99 mg/dL [...] for testing. Comment 11/06/2024 6:17 PM EDT [facility] Customs Guard ID Estefani Sheth 11/06/2024 6:17 PM EDT [facility] Device ID [id number] 11/06/2024 6:17 PM EDT [facility] Specimen Type POC Capillary 11/06/2024 6:17 PM EDT [facility] Blood Capillary blood specimen / Unknown 11/06/2024 6:15 PM EDT 11/06/2024 6:17 PM EDT Nathaly Nowak MD LAB POINT OF CARE TE ST DOCKED DEVICE UNSOLICITED RESULTS Final Result Performing Organization Address City/[facility] Co de Phone Number [facility] [address] [place] [address] * (ABNORMAL) POCT glucose meter (11/06/2024 4:57 PM EDT) [facility] [address] POCT Glucose 417(H) 74 - 99 mg/dL [...] 11/06/2024 4:58 PM EDT [facility] Customs Guard ID Estefani Sheth 11/06/2024 4:58 PM EDT HEALTHCARE LAB Device ID [id number] 11/06/2024 4:58 PM EDT [facility]ALTH[facility]ARE LAB Specimen Type POC Capillary 11/06/2024 4:58 PM EDT [facility] Blood Capillary blood specimen / Unknown 11/06/2024 4:57 PM EDT 11/06/2024 4:58 PM EDT Nathaly Nowak MD LAB POINT OF CARE TE ST DOCKED DEVICE UNSOLICITED RESULTS Final Result Performing Organization Address City/[facility]/ZIP Co de Phone Number [facility]ARE [facility] [address] [place] [address] * (ABNORMAL) POCT glucose meter (11/06/2024 2:08 [...] Comment 11/06/2024 2:09 PM EDT [facility] Customs Guard ID Brigitte Castellon 11/06/2024 2:09 PM EDT [facility]ALTH[facility]ARE LAB Device ID [id number] 11/06/2024 2:09 PM EDT [facility] LAB Specimen Type POC Capillary 11/06/2024 2:09 PM EDT [facility] Blood Capillary blood specimen / Unknown 11/06/2024 2:08 PM EDT 11/06/2024 2:09 PM EDT Nathaly Nowak MD LAB POINT OF CARE TE ST DOCKED DEVICE UNSOLICITED RESULTS Final Result Performing Organization Address City/[facility]/ZIP Co de Phone Number [facility] [address] [place] [address] * (ABNORMAL) POCT glucose meter (11/06/2024 12:27 [...] Comment 11/06/2024 12:28 PM EDT [facility]ALTH[facility]ARE [facility] Customs Guard ID Jacinta Galloway 11/06/2024 12:28 PM EDT [facility]ALTH[facility]ARE LAB Device ID [id number] 11/06/2024 12:28 PM EDT [facility]ARE LAB Specimen Type POC Capillary 11/06/2024 12:28 PM EDT [facility] Blood Capillary blood specimen / Unknown 11/06/2024 12:27 PM EDT 11/06/2024 12:28 PM EDT us Nathaly Nowak MD LAB POINT OF CARE TE ST DOCKED DEVICE UNSOLICITED RESULTS Final Result Performing Organization Address City/State/[facility] Co de Phone Number HEALTHCARE LAB [address] [place] [address] * (ABNORMAL) Fungal Culture, Tissue and ISIDRO (11/06/2024 11:34 AM EDT) [facility] [address] [facility] Culture Reading Mycological 4 Weeks Rare [place] Sana parapsilosis (A) 12/05/2024 8:36 AM EDT [facility] Comment: This isolate has been identified using the FDA Approved [employer] [place] System The organism value for this result has been updated. These results have been appended to the previously preliminary verified report. Edited result: Previously reported as Yeast on 11/11/2024 at 1317 EDT. ISIDRO No fungal elements seen 12/05/2024 8:36 AM EDT [facility] Tissue Topography unknown / Unknown [...] LAB MICROBIOLOGY - GENERAL [facility] Final Result [facility] [address] [place] [address] * (ABNORMAL) Tissue Culture and Gram Stain (11/06/2024 11:34 AM EDT) Culture Moderate Growth 7:35 AM EDT [facility] Culture 2+ Enterobacter cloacae complex(A) ANGÉLICA 11/15/2024 7:35 AM EDT [facility] Comment: This isolate has been identified using the FDA Approved [employer] System The organism value for this result has been updated. These results have been appended to the previously preliminary verified report. Edited result: Previously reported as Gram Negative Jesus on 11/07/2024 at 1434 EDT. Culture 2+ Streptococcus mitis/oralis group(A) ANGÉLICA 11/15/2024 7:35 AM EDT [facility] Comment: This isolate has been identified using the FDA Approved [employer] [place] System The organism value for this result has been updated. These results have been appended to the previously preliminary verified report. Culture 2+ Pasteurella stomatis(A) ANGÉLICA 11/15/2024 7:35 AM EDT [facility] Comment: This result was determined by [employer]DI tof mass spectrometry using the [employer] database and is for research use only. The organism value for this result has been updated. These results have been appended to the previously preliminary verified report. Gram Stain Result Few Gram negative rods(A) 11/15/2024 7:35 AM EDT [facility] Gram Stain Result Moderate Polymorphonuclear leukocytes(A) 11/15/2024 7:35 AM EDT [facility] Gram Stain Result Few Gram positive cocci in pairs(A) 11/15/2024 7:35 AM EDT [facility] Tissue Topography unknown / Unknown 11/06/2024 11:34 AM EDT 11/06/2024 12:18 PM EDT Comment:Pre-op diagnosis: Surgical wound infection [T81.49XA] Narrative [facility] - 11/15/2024 7:35 AM EDT [...] GENERAL ORDAna FRITZ Edited Result - Final [facility] [address] [place] [address] * (ABNORMAL) Anaerobic Culture (11/06/2024 11:34 AM EDT) Culture No anaerobes isolated 11/14/2024 1:25 PM EDT [facility] Culture Staphylococcus pseudintermedius( A) 11/14/2024 1:25 PM EDT [facility] Comment: This result was determined by [employer]DI tof mass spectrometry using the [employer] database and is for research use only. This is an appended report. These results have been appended to a previously final verified report. Tissue Topography unknown / Unknown 11/06/2024 11:34 AM EDT 11/06/2024 12:18 PM EDT Comment:Pre-op diagnosis: Surgical wound infection [T81.49XA] Narrative [facility] - 11/14/2024 1:25 PM EDT [...] Staphylococcus pseudintermedius Vancomycin ANGÉLICA <=0.5 ug/ml: Susceptible Nahtaly Nowak MD LAB MICROBIOLOGY - GENERAL ORDAna [facility] Edited Result - Final [facility] [address] [place] [address] * (ABNORMAL) Routine Culture and Gram Stain (11/06/2024 11:29 AM EDT) Culture Moderate Growth 5:29 PM EDT [facility] Culture Enterobacter cloacae complex(A) 11/08/2024 5:29 PM EDT [facility] Comment: This isolate has been identified using the FDA Approved [employer] [place] System For susceptibility results refer to: - [id number] The organism value for this result has been updated. These results have been appended to the previously preliminary verified report. Gram Stain Result No polymorphonuclear leukocytes seen 11/08/2024 5:29 PM EDT [facility] Gram Stain Result No organisms seen 11/08/2024 5:29 PM EDT [facility] Swab Topography unknown / Unknown 11/06/2024 11:29 AM EDT 11/06/2024 12:19 PM EDT Comment:Pre-op diagnosis: Surgical wound infection [T81.49XA] Nathaly Nowak MD LAB MICROBIOLOGY - GENERAL ORD LAM Final Result Performing Organization Address City/[facility] [place] [address] * Fungal Culture, Routine (11/06/2024 11:29 AM EDT) Culture No Fungal Growth at 1 Week 11/13/2024 8:29 AM EDT [facility] Swab Topography unknown / Unknown 11/06/2024 11:29 AM EDT 11/06/2024 12:19 PM EDT Comment:Pre-op diagnosis: Surgical wound infection [T81.49XA] Nathaly Nowak MD LAB MICROBIOLOGY - GENERAL [facility] LAM Final Result Performing Organization Address [facility] [place] [address] * (ABNORMAL) Anaerobic Culture (11/06/2024 11:29 AM EDT) Culture No anaerobes isolated 11/14/2024 1:25 PM EDT [facility] Culture Streptococcus mitis/oralis group(A) 11/14/2024 1:25 PM EDT [facility] Comment: This result was determined by MALDI tof mass spectrometry using the [employer] database and is for research use only. The organism value for this result has been updated. These results have been appended to the previously preliminary verified report. This is a corrected result. Previous organism was Mixed skin clifton on 11/10/2024 at 0718 EDT. Culture Staphylococcus pseudintermedius( A) 11/14/2024 1:25 PM EDT [facility] Comment: This isolate has been identified using the FDA Approved [employer] CA System This is an appended report. These results have been appended to a previously final verified report. Swab Topography unknown / Unknown 11/06/2024 11:29 AM EDT 11/06/2024 12:19 PM EDT Comment:Pre-op diagnosis: Surgical wound infection [T81.49XA] Narrative [facility] - 11/14/2024 1:25 PM EDT [...] ANGÉLICA <=1 ug/ml: Susceptible Staphylococcus pseudintermedius Minocycline ANGLÉICA <=1 ug/ml: Susceptible Staphylococcus pseudintermedius Oxacillin ANGÉLICA <=0.25 ug/ml: Susceptible Staphylococcus pseudintermedius Penicillin G ANGÉLICA >1 ug/ml: Resistant Staphylococcus pseudintermedius Tetracycline ANGÉLICA <=0.5 ug/ml: Susceptible Staphylococcus pseudintermedius Vancomycin ANGÉLICA <=0.5 ug/ml: Susceptible Nathaly Nowak MD LAB MICROBIOLOGY - [facility] Edited Result - Final [facility] [address] [place] [address] * Routine Culture and Gram Stain (11/06/2024 11:28 AM EDT) Culture No growth at day 4 2024 11:24 AM EDT [facility] Gram Stain Result No organisms seen 11/10/2024 11:24 AM EDT [facility] Gram Stain Result No polymorphonuclear leukocytes seen 11/10/2024 11:24 AM EDT [facility] Swab Topography unknown / Unknown 11/06/2024 11:28 AM EDT 11/06/2024 12:20 PM EDT Comment:Pre-op diagnosis: Surgical wound infection [T81.49XA] Nathaly Nowak MD LAB MICROBIOLOGY - GENERAL ORDE LAM Final Result Performing Organization Address [facility] Co de Phone Number [facility] [address] [place] [address] * Fungal Culture, Routine (11/06/2024 11:28 AM EDT) Culture No Fungal Growth at 1 Week 11/13/2024 8:29 AM EDT [facility] Swab Topography unknown / Unknown 11/06/2024 11:28 AM EDT 11/06/2024 12:20 PM EDT Comment:Pre-op diagnosis: Surgical wound infection [T81.49XA] Nathaly Nowak MD LAB MICROBIOLOGY - GENERAL ORDE LAM Final Result Performing Organization Address [facility] [place] [address] * Anaerobic Culture (11/06/2024 11:28 AM EDT) Culture No growth at day 4 11/13/2024 12:53 PM EDT [facility] Swab Topography unknown / Unknown 11/06/2024 11:28 AM EDT 11/06/2024 12:20 PM EDT Comment:Pre-op diagnosis: Surgical wound infection [T81.49XA] Result [facility] Nathaly Nowak MD LAB MICROBIOLOGY - GENERAL ATIYA FRITZ Final Result Performing Organization Address City/[facility] Co de Phone Number [facility] [address] [place] [address] * (ABNORMAL) POCT glucose meter (11/06/2024 10:16 AM EDT) POCT Glucose 194(H) 74 - 99 mg/dL 11/06/2024 10:18 AM EDT [facility] Comment:Accuracy of a glucos e [...] Comment 11/06/2024 10:18 AM EDT [facility]ALTH[facility]ARE [facility] Customs Guard ID Lacy Griffin 11/07/19 10:18 AM EDT [facility]ALTH[facility]ARE LAB Device ID [id number] 11/06/2024 10:18 AM EDT [facility] Specimen Type POC Capillary 11/06/2024 10:18 AM EDT [facility] Blood Capillary blood specimen / Unknown 11/06/2024 10:16 AM EDT 11/06/2024 10:18 AM EDT us Nathaly Nowak MD LAB POINT OF CARE TE ST DOCKED DEVICE UNSOLICITED RESULTS Final Result Performing Organization Address City/[facility]/ZIP Co de Phone Number [facility] [address] [place] [address] * (ABNORMAL) POCT glucose meter (11/06/2024 5:58 AM EDT) [facility] [address] POCT Glucose 182(H) 74 - 99 mg/dL [...] Comment 11/06/2024 6:01 AM EDT [facility] Customs Guard ID Raj Laird 11/07/19 6:01 AM EDT HEALTH[facility]ARE LAB Device ID [id number] 11/06/2024 6:01 AM EDT [facility] Specimen Type POC Capillary 11/06/2024 6:01 AM EDT [facility] Blood Capillary blood specimen / Unknown 11/06/2024 5:58 AM EDT 11/06/2024 6:01 AM EDT us Nathaly Nowak MD LAB POINT OF CARE TE ST DOCKED DEVICE UNSOLICITED RESULTS Final Result [facility] [address] [place] [address] * (ABNORMAL) POCT glucose meter (11/06/2024 5:36 [...] Comment 11/06/2024 5:38 AM EDT [facility]ALTH[facility]ARE [facility] Customs Guard ID Shahid Sanches 11/06/2024 5:38 AM EDT HEALTHCARE LAB Device ID [id number] 11/06/2024 5:38 AM EDT [facility] Specimen Type POC Capillary 11/06/2024 5:38 AM EDT [facility] Blood Capillary blood specimen / Unknown 11/06/2024 5:36 AM EDT 11/06/2024 5:38 AM EDT Nathaly Nowak MD LAB POINT OF CARE TE ST DOCKED DEVICE UNSOLICITED RESULTS Final Result [facility] [address] [place] [address] * (ABNORMAL) Hemoglobin A1c (11/06/2024 1:07 AM EDT) Hemoglobin A1c 7.6(H) <5.7 % 11/06/2024 11:09 AM EDT [facility] Blood Venous blood specimen / Unknown Venipuncture / Unknown 11/06/2024 1:07 AM EDT 11/06/2024 1:26 AM EDT Narrative [facility] - 11/06/2024 11:09 AM EDT HA1C Interpretive Data: Diagnosis of Diabetes: Diabetic > or = 6.5% Pre-diabetic 5.7 to 6.4% Non-diabetic < or = 5.6% Glycemic Targets for Type I and Type II Diabetics: Non- Adults <7.0% Adults <6.0% Children and Adolescents <7.5% Source: [place] [employer]. Standards of medical care in diabetes,2017. Diabetes Care.2017:40 (suppl 1):S1-S135. Result [facility] Nathaly Nowak MD LAB BLOOD ORDERABLES Final Resu lt Performing Organization Address [facility] Co de Phone Number [facility] [address] [place] [address] * Blood Culture (Aerobic/Anaerobet Set) (11/06/2024 1:07 AM EDT) Culture No growth at day 5 11/11/2024 2:49 AM EDT [facility] Blood Structure of right hand / Unknown Venipuncture / Unknown 11/06/2024 1:07 AM EDT 11/06/2024 2:36 AM EDT Nathaly Nowak MD LAB MICROBIOLOGY - GENERAL ORDE RABONEIDA Final Result Performing Organization Address [facility] Co de Phone Number [facility] [address] [place] [address] * Blood Culture (Aerobic/Anaerobet Set) (11/06/2024 1:07 AM EDT) Culture No growth at day 5 11/11/2024 3:01 AM EDT [facility] Blood Structure of antecubital vein / Unknown Venipuncture / Unknown 11/06/2024 1:07 AM EDT 11/06/2024 2:36 AM EDT Nathaly Nowak MD LAB MICROBIOLOGY - GENERAL ORDE RABONEIDA Final Result Performing Organization Address [facility] Co de Phone Number [facility] [address] [place] [address] * (ABNORMAL) Basic metabolic panel (11/06/2024 1:07 AM EDT) Glucose, Plasma 207(H) 74 - 99 mg/dL 11/06/2024 1:41 AM EDT [facility] BUN, Plasma 20 8 - 23 mg/dL 11/06/2024 1:41 AM EDT [facility] Creatinine, Plasma 0.92 0.70 - 1.20 mg/dL 11/06/2024 1:41 AM EDT [facility] BUN/Creatinine Ratio 22 11/06/2024 1:41 AM EDT [facility] Sodium, Plasma 136 136 - 145 mmol/L 11/06/2024 1:41 AM EDT [facility] Potassium, Plasma 4.5 3.6 - 4.9 mmol/L 11/06/2024 1:41 AM EDT [facility] Chloride, Plasma 104 97 - 107 mmol/L 11/06/2024 1:41 AM EDT [facility] CO2, Plasma 22 22 - 29 mmol/L 11/06/2024 1:41 AM EDT [facility] Anion Gap 10 6 - 16 mmol/L 11/06/2024 1:41 AM EDT [facility] Total Calcium, Plasma 9.0 8.9 - 10.2 mg/dL 11/06/2024 1:41 AM EDT [facility] eGFRcr 92.3 mL/min/1.7 3m*2 11/06/2024 1:41 AM EDT [facility] Comment:Reported eGFRcr in m L/min/1.73m2 is based the CKD-EPI 2020 equation that does not use a race coefficient. Blood Venous blood specimen / Unknown Venipuncture / Unknown 11/06/2024 1:07 AM EDT 11/06/2024 1:12 AM EDT us Nathaly Nowak MD LAB BLOOD ORDERABLES Final Resu lt [facility] [address] [place] [address] * Phosphorus (11/06/2024 1:07 AM EDT) Phosphorus, Plasma 3.2 2.5 - 4.5 mg/dL 11/06/2024 1:41 AM EDT [facility] Blood Venous blood specimen / Unknown Venipuncture / Unknown 11/06/2024 1:07 AM EDT 11/06/2024 1:12 AM EDT us Nathaly Nowak MD LAB BLOOD ORDERABLES Final Resu lt Performing Organization Address City/[facility]/ZIP Co de Phone Number [facility] [address] [place] [address] * Magnesium (11/06/2024 1:07 AM EDT) Magnesium, Plasma 2.2 1.9 - 2.4 mg/dL 11/06/2024 1:41 AM EDT [facility] Blood Venous blood specimen / Unknown Venipuncture / Unknown 11/06/2024 1:07 AM EDT 11/06/2024 1:12 AM EDT us Nathaly Nowak MD LAB BLOOD ORDERABLES Final Resu lt Performing Organization Address [facility] Co de Phone Number [facility] [address] [place] [address] * (ABNORMAL) CBC (11/06/2024 1:07 AM EDT) WBC Count 9.70 3.70 - 10.30 10*3/uL LAB HEMATOLOGY METHOD 11/06/2024 1:19 AM EDT [facility] RBC Count 2.89(L) 4.60 - 6.10 10*6/uL LAB HEMATOLOGY METHOD 11/06/2024 1:19 AM EDT [facility] HGB 8.8(L) 13.7 - 17.5 g/dL LAB HEMATOLOGY METHOD 11/06/2024 1:19 AM EDT [facility] HCT 26.2(L) 40.0 - 51.0 % LAB HEMATOLOGY METHOD 11/06/2024 1:19 AM EDT [facility] Platelet Count 542(H) 155 - 369 10*3/uL LAB HEMATOLOGY METHOD 11/06/2024 1:19 AM EDT [facility] MCV 91 79 - 98 fL LAB HEMATOLOGY METHOD 11/06/2024 1:19 AM EDT [facility] MCH 30.4 26.0 - 32.0 pg LAB HEMATOLOGY METHOD 11/06/2024 1:19 AM EDT [facility] MCHC 33.6 30.7 - 35.5 g/dL LAB HEMATOLOGY METHOD 11/06/2024 1:19 AM EDT [facility] RDW 13.2 11.5 - 14.5 % LAB HEMATOLOGY METHOD 11/06/2024 1:19 AM EDT [facility] MPV 8.7(L) 8.8 - 12.5 fL LAB HEMATOLOGY METHOD 11/06/2024 1:19 AM EDT [facility] nRBC 0.0 <=0.0 per 100 WBCs LAB HEMATOLOGY METHOD 11/06/2024 1:19 AM EDT [facility] Blood Venous blood specimen / Unknown Venipuncture / Unknown 11/06/2024 1:07 AM EDT 11/06/2024 1:12 AM EDT us Nathaly Nowak MD LAB BLOOD ORDERABLES Final Resu lt Performing Organization Address City/[facility]/ZIP Co de Phone Number [facility] [address] [place] [address] * Gold Top (11/06/2024 12:58 AM EDT) Extra Hold for add-ons 11/06/2024 3:21 AM EDT [facility] Comment:Auto resulted. Blood Venous blood specimen / Unknown 11/06/2024 12:58 AM EDT 11/06/2024 1:13 AM EDT us Nathaly Nowak MD LAB BLOOD ORDERABLES Final Resu lt [facility] [address] [place] [address] * Gold Top (11/06/2024 12:58 AM EDT) Extra Hold for add-ons 11/06/2024 3:21 AM EDT [facility] Comment:Auto resulted. Blood Venous blood specimen / Unknown 11/06/2024 12:58 AM EDT 11/06/2024 1:13 AM EDT us Nathaly Nowak MD LAB BLOOD ORDERABLES Final Resu lt Performing Organization Address City/[facility]/ZIP Co de Phone Number [facility] [address] [place] [address] * Light Green Top (11/06/2024 12:58 AM EDT) Extra Hold for add-ons 11/06/2024 3:21 AM EDT [facility] Comment:Auto resulted. Blood Venous blood specimen / Unknown 11/06/2024 12:58 AM EDT 11/06/2024 1:13 AM EDT us Nathaly Nowak MD LAB BLOOD ORDERABLES Final Resu lt Performing Organization Address [facility] Co de Phone Number [facility] [address] [place] [address] * Light Blue Top (11/06/2024 12:58 AM EDT) Extra Hold for add-ons 11/06/2024 3:21 AM EDT [facility] Comment:Auto resulted. Blood Venous blood specimen / Unknown 11/06/2024 12:58 AM EDT 11/06/2024 1:13 AM EDT us Nathaly Nowak MD LAB BLOOD ORDERABLES Final Resu lt Performing Organization Address [facility]/ZIP Co de Phone Number [facility] [address] [place] [address] * Light Blue Top (11/06/2024 12:58 AM EDT) Extra Hold for add-ons 11/06/2024 3:21 AM EDT [facility] Comment:Auto resulted. Blood Venous blood specimen / Unknown 11/06/2024 12:58 AM EDT 11/06/2024 1:13 AM EDT us Nathaly Nowak MD LAB BLOOD ORDERABLES Final Resu lt [facility] [address] [place] [address] * (ABNORMAL) POCT glucose meter (11/06/2024 12:45 [...] Comment 11/06/2024 12:48 AM EDT [facility]ALTHCARE LAB Customs Guard ID Raj Laird 11/07/19 12:48 AM EDT HEALTHCARE LAB Device ID [id number] 11/06/2024 12:48 AM EDT [facility]ALTH[facility]ARE LAB Specimen Type POC Capillary 11/06/2024 12:48 AM EDT [facility]ALTH[facility]ARE LAB Blood Capillary blood specimen / Unknown 11/06/2024 12:45 AM EDT 11/06/2024 12:48 AM EDT Nathaly Nowak MD LAB POINT OF CARE TE ST DOCKED DEVICE UNSOLICITED RESULTS Final Result [facility] [address] [place] [address] documented in this encounter Visit Diagnoses Diagnosis [...] needed, Starting on Mon11/06/24 at 0031, Until [facility] 11/14/24 at 1804, Routine, line care [...] needed, Starting on Mon11/06/24 at 0753, Until [facility] 11/14/24 at 1804, Routine, On Unit - Preprocedure, line care sodium chloride 0.9 % flush 10 mL 10 mL, Intravenous, Every 12 hours, First dose on [facility] 11/09/24 at 1515, Until Discontinued, Routine Given 11/14/2024 2:42 PM EDT 10 mL Given 11/14/2024 3:03 AM EDT 10 mL Given 11/13/2024 4:43 PM EDT 10 mL Sodium Hypochlorite (Dakin's (HALF-Strength)) external solution 1 Application Irrigation, Daily, First dose on [facility] 11/09/24 at 0945, Until Discontinued, Routine [...] due at 0900)0930 (New Bag - Provider: Yazmni Bhatt RN) insulin glargine-yfgn 100 UNIT/ML injection [...] Until Discontinued, Routine 1332 (Given - Provider: Devoar Bo) 0023 (Given - Provider: Jonathan Vale [...] documented as of this encounter Care Teams Mailroom Clerk Relationship Specialty Start Date End Date Asad Victor MD [address] [place] [address] PCP - General 10/07/22 documented as of this encounter
--- OUTSIDE RECORDS SUMMARY | 2024-11-06 10:08 | XMS_ITS | Encounter Summary ---
Author Organization Healthcare Address [address] [place] [address] Care Team Providers Care Service Planner Name Role Phone Asad Victor MD Primary Care Provider + [phone] Reason for Visit * Reason Comments Post-op Problem Wound Check * Auth/Cert (Routine) Specialty Diagnoses / Procedures Referred By Contac t Referred To Contact Diagnoses Wound infection Post-op Vasc Sx wounds - sx on 10/17 at Nathaly Nowak MD [address] [address] Phone: tel: fax: [facility] Emergency Department [address] [place] [address] Phone: tel: Referral ID Status Reason Start Date Expiration Date Visits Re quested Visits Authorized [id number] 1 1 Encounter Details Date Type Department Care Team (Late st Contact Info) Description 11/06/2024 10:08 AM EDT - 11/06/2024 11:38 AM EDT Surgery [facility] OPERATING ROOM [address] [place] [address] Nathaly Nowak MD [id number] [place] [address] Left groin exploration and washout, [...] Beckett MD Resident - Assisting 1 Jerry Holcobm MD Fellow 1 documented in this encounter [...] drink first t dino in the morning (EYE-INDUSTRIAL ENGINEERING TECHNOLOGIST) to steady your nerves or to get rid of a hangover? 0 10/18/2021 CAGE Questionnaire Score 0 022 Utilities Answer Date Recorded In the past 12 months has [employer], gas, oil, or water [employer] threatened to shut off services in your [...] Carmona with any questions or concerns at [phone]. It is important that you get your [...] Note Bev Borja 64 y.o. male CSN: [id number] Admission: 11/05/2024 9:45 PM Primary Problem: Wound infection Primary Paper Rewinder Operator: Primary Caregiver: Self Assistance Available at [...] admission in last 30 days Follow-up: [facility] [address] [facility] [address] Go to Infusion Clinic. Please arrive at 11 am daily. [facility] [address] Go to Wound care clinic. First appointment is 1:10 pm. Please call [phone] with scheduling concerns. Discharge Transportation: Transportation Anticipated: medical transport Transportation Home at Discharge: Medical Transport Follow Up Transport: Transportation Needed to Follow up Appoinments: Medical Transport Additional Comments: Patient discharging home. No other SW needs identified. Mariia Monterroso SITE COORDINATOR * Discharge Summary - Melecio Echevarria DO - 11/14/2024 12:46 PM EDT Hospitalization Admit Date/Time: 11/05/2024 9:45 PM Admitting Attending: Nathaly Nowak Discharge Date: 11/14/2024 Discharge Attending Physician: Nathaly Nowak MD PCP name and Address: Asad Victor MD (Inactive) [address] [place] [address] / [place] [address] Referring provider name and address: Wade Cowart, DO [address] [place] [address] Chief Concern, Brief History of Present Illness, and Hospital Course Mr. Borja is a 64 y/o male that presented to [facility] on 11/06/2024 for surgical wound infection s/p [...] Your Medications [facility] - GLENDA Solorzano - [address], [place] [address] ertapenem injection micafungin injection Discharge Diagnosis Medical [...] Time Provider Department Center 11/26/2024 2:00 PM [facility] 1 [facility] 11/26/2024 2:30 PM [facility] 2 [facility] 11/26/2024 3:20 PM [facility] Schuster [facility] 11/29/2024 2:30 PM Oscar Appiah MD [...] 9:38 PM EDT Associated attestation - Neil sIaac MD - 11/16/2024 9:38 PM EDT I saw and evaluated the patient with the resident/fellow. I discussed the case with the resident/fellow and agree with the findings and plan as documented. * Hospital Course - Melecio Echevarria DO - 11/14/2024 10:25 AM EDT Mr. Borja is a 64 y/o male that presented to [facility] on 11/06/2024 for surgical wound infection s/p [...] portions of the procedure(s) and immediately available [facility] services the entire duration. See resident note for details. * Progress Notes - Mariia Monterroso - 11/13/2024 1:57 PM EDT Case Management Adult Progress Note Bev Borja 64 y.o. male CSN: [id number] Admission: 11/05/2024 9:45 PM Primary Problem: Wound infection Wound vac to be delivered today by at bedside. SW sent referral/orders to [facility] wound care center (fax [phone]) and infusion clinic (fax [phone]). Plan to discharge tomorrow. SW will continue to follow. Mariia Monterroso SITE COORDINATOR * Progress Notes - Bianca Knight PharmD - 11/13/2024 12:55 PM EDT Vancomycin therapy has been stopped per ID recommendation. Pharmacist will sign off from dosing and monitoring vancomycin. Please re- consult a pharmacist if more vancomycin is indicated. Bianca Knihgt PharmD, [facility] * Progress Notes - Ailin eLvy MBBS - 11/13/2024 11:15 AM EDT ID [...] Lumen PICC Antimicrobial Regimen: IV Ertapenem 1g [id number] start date:11/06/2024 Projected End date:12/18/2024 IV Micafungin 150mg [id number] Start date: 11/12/2024 Projected End Date: 12/24/2024 [...] OPAT Team Attn: Dr Kraus Fax #: [phone] Appointments: (Dr Appiah 08/02/2024 at 2.30pm) at: [facility]: [address] [place] [address] (Select Option 3 for IV Antibiotic / PICC line related issues) For questions regarding OPAT prior to discharge, reach out to the OPAT team via WeTag Secure Chat (Group: OPAT Referral Team). For all questions regarding OPAT after discharge should be directed to the OPAT Team at (Select Option 3 for IV Antibiotics/PICC Issues) between 8am-5pm. After 5 pm, or during weekends/ holidays, please call the paging quarry equipment operator at to reach the on-call ID [...] included. [facility] Department of Surgery Division of Vascular Surgery Surgery Progress Note 11/13/24 Bev Borja Subjective Subjective: HPI 64yoM PMHx COPD, T2DM, HLD, HTN, RLS, CAD s/p PCI (on Xarelto) s/p pacemaker c/b left SANDIP pseudoaneurysm s/p thrombin injection 09/21/24, CLI s/p left femoral endarterectomy with EIA/STONE CHIMNEY MASON stenting 10/17/24, [facility] 09/21/24, CLI s/p left femoral endarterectomy with EIA/STONE CHIMNEY MASON stenting 10/17/24, [facility] [...] findings. Cardiac Device Check - PRE-OR [facility] EP-Device Clinic: Pre-operative CIED Report Assessment and Sara-Procedural Reommendations: Name: Bev Borja Date: 10/17/2024 : 1960 Age: 64 y.o. 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 Lead integrity [...] recommendations. Supporting reports can be found in [employer]tec media file. Micro: Susceptibility data from last [...] Units Date/Time Tissue Culture and Gram Stain [[id number]] (Abnormal) (Susceptibility) Collected: 11/06/24 1134 Order Status: Completed Specimen: Tissue from Other (specify site) Updated: 11/12/24 1334 Culture Moderate Growth 2+ Enterobacter cloacae complex Comment: This isolate has been identified using the FDA Approved Fanearyper CA System The organism value for this result has been updated. These results have been appended to the previously preliminary verified report. Edited result: Previously reported as Gram Negative Jesus on 11/07/2024 at 1434 EDT. 2+ Streptococcus mitis/oralis group Comment: This isolate has been identified using the FDA Approved MALDI Koutyper CA System The organism value for this result has been updated. These results have been appended to the previously preliminary verified report. 2+ Pasteurella stomatis Comment: This result was determined by MALDI tof mass spectrometry using the Ranku database and is for research use only. [...] stewardship team. Comprehensive GI Panel by PCR [[id number]] (Normal) Collected: 11/12/24 0950 Order Status: Completed [...] if clinically indicated. Clostridiodes (Clostridium) difficile PCR [[id number]] (Normal) Collected: 11/12/24 0950 Order Status: Completed [...] high complexity clinical laboratory testing. 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 These results have been appended to the previously preliminary verified report. Edited result: Previously reported as Yeast on 11/11/2024 at 1317 EDT. ISIDRO No fungal elements seen Additional Susceptibilities and/or Identification [[id number]] Collected: 11/11/24 1240 Order Status: Completed Specimen: Tissue from Wound (specify site): Additional Susceptibilities and/or Identification [[id number]] Collected: 11/11/24 1238 Order Status: Completed Specimen: Tissue from Wound (specify site): Additional Susceptibilities and/or Identification [[id number]] Collected: 11/11/24 1237 Order Status: Completed Specimen: Tissue from Wound (specify site): AFB Culture, Non Respiratory Source and Acid Fast Stain [[id number]] Collected: 11/06/24 1134 Order Status: Completed Specimen: Tissue from Other (specify site) Updated: 11/11/24 0938 AFB Culture No Mycobacterial Growth <1 Week Acid Fast Stain No acid fast bacilli seen Blood Culture (Aerobic/Anaerobet Set) [[id number]] Collected: 11/06/24106 Order Status: Completed Specimen: Blood from AC, Left Updated: 11/11/24 0301 Culture No growth at day 5 Blood Culture (Aerobic/Anaerobet Set) [[id number]] Collected: 11/06/24106 Order Status: Completed Specimen: Blood [...] [facility] [...] to stay a facility, plan [facility] daily IV [...] 1,000 mg 1,000 mg Oral q6h [facility] Anthony Reyes MD 1,000 [...] Prevent or Manage Pain Flowsheets (Taken 11/11/2024 4553 by Jonathan Vale RN) Sensory Stimulation Regulation: care clustered lighting decreased quiet environment promoted Medication Review/Management: medications reviewed * Consults - Anabel Ovalle RD - 11/12/2024 9:59 AM EDT Adult Nutrition Evaluation Note Bev Borja 64 y.o. male CSN: [id number] Room/Bed 682/682B Nutrition evaluation type: assessment Reason for evaluation: LOS Hospital course: 64 y.o. male with PMHx significant for COPD, CAD s/p PCI (on Xarelto) s/p pacemaker c/b left SANDIP pseudoaneurysm s/p thrombin injection 09/21/24, chronic limb ischemia s/p left femoralendarterectomy with external iliac/common femoral artery stenting 10/17/24, T2DM, HLD, HTN, RLS who presented to the [facility] on 11/05/2024 with problems with [...] (194 lb 3.6 oz) BMI (Calculated): 30.41 [place] Body Weight (kg): 67.3 Percent [place] Body Weight: 131 Adjusted Body Weight (kg): [...] oz) Estimated Needs: Kcal/ K-30 Kcal Provided: 5881-9864 Kcal Needs Based On: Adjusted weight Gm Protein/ Kg : 1.2-1.5 Protein Provided: 87-108 Protein Needs Based On: Adjusted weight Metabolic Cart Study Results: Current Nutrition Intake: Diet Order: Adult Diet Diet Texture: Regular Adult Carbohydrate Restriction: Consistent CHO 1 (8995-0380 Jatinder, 65 g/meal) Percent Meals Eaten (%): [...] ENDARTERECTOMY N/A 2017 Endarterectomy Carotid Artery from [facility] CORONARY ANGIOPLASTY Left Coronary Angiography With Concomitant Left Heart Catheterization from [employer] CORONARY ARTERY BYPASS GRAFT N/A 2018 3V ELBOW SURGERY Right ENDARTERECTOMY Left 10/17/2024 common/SFA/Profunda thromboendarterectomy, EIA/STONE CHIMNEY MASON stent HERNIA REPAIR KNEE ARTHROSCOPY Left VASCULAR SURGERY Left 09/21/2024 STONE CHIMNEY MASON pseudoaneurym injection [3] Social History Tobacco Use [...] from the original note were not included. [facility] Department of Surgery Division of Vascular Surgery Surgery Progress Note 11/12/24 Bev Perez Cristoferkeo Subjective Subjective: HPI 64yoM PMHx COPD, T2DM, HLD, HTN, RLS, CAD s/p PCI (on Xarelto) s/p pacemaker c/b left SANDIP pseudoaneurysm s/p thrombin injection 09/21/24, CLI s/p left femoral endarterectomy with EIA/STONE CHIMNEY MASON stenting 10/17/24, [facility] 09/21/24, CLI s/p left femoral endarterectomy with EIA/STONE CHIMNEY MASON stenting 10/17/24, [facility] [...] findings. Cardiac Device Check - [facility]: Pre-operative CIED Report Assessment and Sara-Procedural Reommendations: Name: Bev Borja Date: 10/17/2024 : 1960 Age: 64 y.o. 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 Lead integrity [...] recommendations. Supporting reports can be found in [employer]tec media file. Micro: Susceptibility data from last [...] Units Date/Time Tissue Culture and Gram Stain [[id number]] (Abnormal) (Susceptibility) Collected: 11/06/24 1134 Order Status: Completed Specimen: Tissue from Other (specify site) Updated: 11/12/24 1334 Culture Moderate Growth 2+ Enterobacter cloacae complex Comment: This isolate has been identified using the FDA Approved BandApper CA System The organism value for this result has been updated. These results have been appended to the previously preliminary verified report. Edited result: Previously reported as Gram Negative Jesus on 11/07/2024 at 1434 EDT. 2+ Streptococcus mitis/oralis group Comment: This isolate has been identified using the FDA Approved BandApper CA System The organism value for this result has been updated. These results have been appended to the previously preliminary verified report. 2+ Pasteurella stomatis Comment: This result was determined by MALDI tof mass spectrometry using the Ranku database and is for research use only. [...] stewardship team. Comprehensive GI Panel by PCR [[id number]] (Normal) Collected: 11/12/24 0950 Order Status: Completed [...] if clinically indicated. Clostridiodes (Clostridium) difficile PCR [[id number]] (Normal) Collected: 11/12/24 0950 Order Status: Completed [...] high complexity clinical laboratory testing. Anaerobic Culture [[id number]] Collected: 11/06/24 1128 Order Status: Completed Specimen: Swab from Other (specify site) Updated: 11/12/24 1118 Culture No growth at day 4 Fungal Culture, Tissue and ISIDRO [[id number]] (Abnormal) Collected: 11/06/24 1134 Order Status: Completed Specimen: Tissue from Other (specify site) Updated: 11/12/24 1033 Culture Reading Mycological 4 Weeks Rare Windthorst Sana parapsilosis Comment: This isolate has been identified using the FDA Approved Fanearyper CA System The organism value for this result has been updated. These results have been appended to the previously preliminary verified report. Edited result: Previously reported as Yeast on 11/11/2024 at 1317 EDT. ISIDRO No fungal elements seen Additional Susceptibilities and/or Identification [[id number]] Collected: 11/11/24 1240 Order Status: Completed Specimen: Tissue from Wound (specify site): Additional Susceptibilities and/or Identification [[id number]] Collected: 11/11/24 1238 Order Status: Completed Specimen: Tissue from Wound (specify site): Additional Susceptibilities and/or Identification [[id number]] Collected: 11/11/24 1237 Order Status: Completed Specimen: Tissue from Wound (specify site): AFB Culture, Non Respiratory Source and Acid Fast Stain [[id number]] Collected: 11/06/24 1134 Order Status: Completed Specimen: Tissue from Other (specify site) Updated: 11/11/24 0938 AFB Culture No Mycobacterial Growth <1 Week Acid Fast Stain No acid fast bacilli seen Blood Culture (Aerobic/Anaerobet Set) [[id number]] Collected: 11/06/24106 Order Status: Completed Specimen: Blood from AC, Left Updated: 11/11/24 0301 Culture No growth at day 5 Blood Culture (Aerobic/Anaerobet Set) [[id number]] Collected: 11/06/24106 Order Status: Completed Specimen: Blood [...] 11/06, pt went to the [facility] vascular surgery for left groin exploration [...] want to stay a facility, plan for [facility] daily IV [...] 1,000 mg 1,000 mg Oral q6h [facility] Anthony Reyes MD 1,000 mg at 11/12/24 1356 aspirin chewable tablet 81 mg 81 mg Oral Daily Reid Daniels MD 81 mg at 11/12/24 0938 cefepime (Maxipime) 2 g in sodium chloride 0.9% 100 mL IVPB (vial adapter required) 2 g [id number] Reid Daniels MD 36.7 mL/hr at 11/12/24 [...] tablet 500 mg 500 mg Oral TID Ried Daniels MD 500 mg at 11/12/24 0940 [...] PM Anthony Reyes MD 0.4 mg at [id number] Vancomycin HCl in NaCl (Vancocin) IVPB 1,000 [...] send him home on micafungin as Rare Windthorst Sana parapsilosis grew and we do not [...] portions of the procedure(s) and immediately available [facility] services the entire duration. See resident note for details. * Progress Notes - Mariia Monterroso - 11/11/2024 1:10 PM EDT Case Management Adult Progress Note Bev Borja 64 y.o. male CSN: [id number] Admission: 11/05/2024 9:45 PM Primary Problem: Wound infection Patient refusing inpatient placement for IV abx. [facility] infusion clinic can provide treatment. Face sheet, IV abx orders, and order for PICC care/labs/dressing changes need to be faxed to [phone]. Voicemail left with wound care clinic. Wound vac approved per , delivery pending. Crysll continue to follow. Mariia Monterroso SITE COORDINATOR * Progress Notes - Dotty Sethi MD [...] findings. Cardiac Device Check - PRE-[facility] EP-[facility]: Pre-operative CIED Report Assessment and Sara-Procedural Reommendations: Name: Bev Borja Date: 10/17/2024 : 1960 Age: 64 y.o. 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 Lead integrity [...] recommendations. Supporting reports can be found in Filtec media file. Micro: Susceptibility data from last [...] Non Respiratory Source and Acid Fast Stain [[id number]] Collected: 11/06/24 1134 Order Status: Completed Specimen: Tissue from Other (specify site) Updated: 11/11/24 0938 AFB Culture No Mycobacterial Growth <1 Week Acid Fast Stain No acid fast bacilli seen Blood Culture (Aerobic/Anaerobet Set) [[id number]] Collected: 11/06/24106 Order Status: Completed Specimen: Blood from AC, Left Updated: 11/11/24 0301 Culture No growth at day 5 Blood Culture (Aerobic/Anaerobet Set) [[id number]] Collected: 11/06/24 010 Order Status: Completed Specimen: Blood from Hand, Right Updated: 11/11/24 0249 Culture No growth at day 5 Anaerobic Culture [[id number]] Collected: 11/06/24 1128 Order Status: Completed Specimen: Swab from Other (specify site) Updated: 11/10/24 1441 Culture No growth at day 4 Routine Culture and Gram Stain [[id number]] Collected: 11/06/24 1128 Order Status: Completed Specimen: Swab from Other (specify site) Updated: 11/10/24 1124 Culture No growth at day 4 Gram Stain Result No organisms seen No polymorphonuclear leukocytes seen Anaerobic Culture [[id number]] (Abnormal) Collected: 11/06/24 112 Order Status: Completed Specimen: Swab from Other (specify site) Updated: 11/10/24 0718 Culture No anaerobes isolated Mixed skin clifton Comment: The organism value for this result has been updated. These results have been appended to the previously preliminary verified report. Narrative: Mixed Skin Clifton includes Streptococcus mitis/oralis group and Staphylococcus Pseudintermedius Anaerobic Culture [[id number]] (Abnormal) Collected: 11/06/24 1134 Order Status: Completed [...] [facility] [...] mL IVPB (vial adapter required) 2 g [id number] Reid Daniels MD 36.7 mL/hr at 11/11/24 [...] mg 4 mg Oral q6h PRN Anthony eRyes MD Or ondansetron (Zofran) injection 4 mg [...] PM Anthony Reyes MD 0.4 mg at [id number] Vancomycin HCl in NaCl (Vancocin) IVPB 1,000 [...] from the original note were not included. [facility] Department of Surgery Division of Vascular Surgery Surgery Progress Note 11/11/24 Bev Borja Subjective Subjective: HPI 64yoM PMHx COPD, T2DM, HLD, HTN, RLS, CAD s/p PCI (on Xarelto) s/p pacemaker c/b left SANDIP pseudoaneurysm s/p thrombin injection 09/21/24, CLI s/p left femoral endarterectomy with EIA/STONE CHIMNEY MASON stenting 10/17/24, [facility] 09/21/24, CLI s/p left femoral endarterectomy with EIA/STONE CHIMNEY MASON stenting 10/17/24, [facility] [...] Edited by: Reid Daniels MD at 11/11/2024 0890 Dispo: Continue Current Level of Care Reid [...] to follow, Submitted by: Kalpesh Lord PharmD, [facility] 11/10/2024 12:45 PM * Care Plan [...] 09/21/24, CLI s/p left femoral endarterectomy with EIA/STONE CHIMNEY MASON stenting 10/17/24, [facility] [...] 09/21/24, CLI s/p left femoral endarterectomy with EIA/STONE CHIMNEY MASON stenting 10/17/24, [facility] [...] Barraza RN Authorized by: Nathaly Nowak MD [place] Protocol: Verbal consent obtained?: Yes Written consent [...] selection rationale: Left pacemaker Catheter Lot #: [id number] 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 Patient reports he went to [facility] 12th floor via w/c yesterday [...] Mobility: Ambulatory- community (was utilizing scooter at [employer] since discharge) Mobility Beaver: Independent gait with device History of Falls: [...] Mobility Bed Mobility Exam: Scooting/Bridging Level of Beaver: Modified independence Bed Mobility Exam: Supine to Sit Level of Beaver: Modified [place]aver Transfers Transfer Exam: Sit to stand Level of Beaver: Modified independence Assistive Device: Rollator Transfer Exam: Stand to Sit Level of Beaver: Modified independence Assistive Device: Rollator Ambulation Device: [...] Standardized Assessments [facility] 6-Clicks Mobility Assessment Difficulty patient has turning [...] A little [facility] 6-Clicks Mobility Assessment Total : 22 Assessment [...] Mobility Ambulatory- community (was utilizing scooter at [employer] since discharge) Mobility [place] Independent gait with device History of Falls [...] distal to knee) BED MOBILITY Level of Beaver Physical/Non-physical Assist Adaptive Equipment Utilized Scooting/ Bridging Modified independence Supine to Sit Modified [place]aver TRANSFERS Level of Beaver Physical/Non-physical Assist Adaptive Equipment Utilized Sit to Stand Modified independence Rollator Stand to sit Modified independence Rollator Toilet Transfer Modified independence Grab bar FUNCTIONAL MOBILITY Ambulation Modified independent 200ft x2 with seated rest break between bouts; RPE 5-7/10. Cues forsafety with rollator brakes. Rollator Comments BALANCE Postural Appearance Posture: Within Functional Limits Level of Beaver Balance Support Static Sit Independent Feet supported Dynamic Sit Independent Feet supported Static Stand Independent Right upper extremity support, Left upper extremity support (via rollator) Dynamic Stand Independent Right upper extremity support, Left upper extremity support (via rollator) STANDARDIZED ASSESSMENTS [facility] 6-Click Daily Activities Help from Other: Don/Doff Regular Lower Body Clothings: None Help From Other: Bathing: None Help From Other: Toileting: None Help From Other: Don/Doff Upper Body Clothings: None Help From Other: Grooming: None Help From Other: Eating Meals: None [facility] 6 Click - Daily Activities Score: [...] needed areas of treatment space. Level of [place] Interventions Grooming Modified independent Standing sinkside Pt [...] Note Bev Borja 64 y.o. male CSN: [id number] Admission: 11/05/2024 9:45 PM Primary Problem: Wound [...] follow and assist as needed. Mariia Monterroso SITE COORDINATOR * Progress Notes - Bianca Knight PharmD [...] to follow, Submitted by: Bianca Knight, ElizabethD, [facility] 11/08/2024 11:15 AM * Progress Notes - Melecio Echevarria DO - 11/08/2024 7:18 AM EDT Images from the original note were not included. [facility] Department of Surgery Division of Vascular Surgery Surgery Progress Note 11/08/24 Bev Borja Subjective Subjective: HPI 64yoM PMHx COPD, T2DM, HLD, HTN, RLS, CAD s/p PCI (on Xarelto) s/p pacemaker c/b left SANDIP pseudoaneurysm s/p thrombin injection 09/21/24, CLI s/p left femoral endarterectomy with EIA/STONE CHIMNEY MASON stenting 10/17/24, [facility] completed 10/19 Pseudoaneurysm of left femoral artery ([facility]) COPD (chronic obstructive pulmonary disease) ([facility]) Overview Signed 10/18/2021 7:30 PM by Gallo Gallardo MD Not on home inhalers A-fib ([facility]) Overview Addendum 10/19/2021 10:39 AM by Giovanna Junior APRN Hold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 LAB Device ID [id number] 11/12/2024 5:10 PM EDT HEALTHCARE LAB Specimen Type POC Capillary 11/12/2024 5:10 PM EDT HEALTHCARE LAB Blood Capillary blood specimen / Unknown 11/12/2024 5:08 PM EDT 11/12/2024 5:10 PM EDT us Nathaly Nowak MD LAB POINT OF CARE TE ST DOCKED DEVICE UNSOLICITED RESULTS Final Result [facility]ARE [facility] [address] [place] [address] * (ABNORMAL) POCT glucose meter (11/12/2024 12:36 [...] Comment 11/12/2024 12:38 PM EDT HEALTHCARE LAB Counter Clerk ID Wade Feliciano 12:38 PM EDT HEALTHCARE LAB Device ID [id number] 11/12/2024 12:38 PM EDT [facility] [...] Co de Phone Number HEALTHCARE LAB [address] [place] [address] * Clostridiodes (Clostridium) difficile PCR (11/12/2024 9:50 AM EDT) C difficile PCR toxin B gene DNA Result Not Detected Not Detected 11/12/2024 11:54 AM EDT [facility] Stool Rectum [...] Nathaly Nowak MD LAB MICROBIOLOGY - [facility] LAM Final Result [facility] [address] [place] [address] * Comprehensive GI Panel by PCR (11/12/2024 [...] Detected Not Detected 11/12/2024 2:47 PM EDT [facility] Enteroaggregative E. coli (EAEC) PCR Result Not Detected Not Detected 11/12/2024 2:47 PM EDT [facility] Enteropathogenic E. coli (EPEC) PCR Result Not [...] ORDE RABLES Final Result Performing Organization Address City/[facility]/ZIP Co de Phone Number [facility] [address] [place] [address] * C-reactive protein (11/12/2024 9:48 AM EDT) [facility] CRP, Plasma <3.0 <=8.0 mg/L 11/12/2024 10:28 AM EDT [facility] Blood Venous blood specimen / Unknown Venipuncture / Unknown 11/12/2024 9:48 AM EDT 11/12/2024 9:59 AM EDT [facility] - 11/12/2024 10:28 AM EDT This CRP test is appropriate for assessment of infection, systemic inflammation and/or tissue injury. To assess cardiovascular disease risk order high sensitivity CRP (CRPH). Nathaly Nowak MD LAB BLOOD ORDERABLES Final Resu lt Performing Organization Address [facility] Co de Phone Number [facility] [address] [place] [address] * (ABNORMAL) POCT glucose meter (11/12/2024 8:20 [...] 11/12/2024 8:21 AM EDT [facility] Counter Clerk ID Wade Feliciano 8:21 AM EDT HEALTHCARE LAB Device ID [id number] 11/12/2024 8:21 AM EDT HEALTHCARE LAB Specimen Type POC Capillary 11/12/2024 8:21 AM EDT HEALTHCARE LAB Blood Capillary blood specimen / Unknown 11/12/2024 8:20 AM EDT 11/12/2024 8:21 AM EDT Nathaly Nowak MD LAB POINT OF CARE TE ST DOCKED DEVICE UNSOLICITED RESULTS Final Result Performing Organization Address [facility] de Phone Number [facility] [address] [place] [address] * (ABNORMAL) POCT glucose meter (11/11/2024 8:18 PM EDT) Pathologist [facility] POCT Glucose 248(H) 74 - 99 mg/dL [...] Comment 11/11/2024 8:20 PM EDT HEALTHCARE LAB Counter Clerk ID Nelda Gerber 11/12/19 8:20 PM EDT [facility] Device ID [id number] 11/11/2024 8:20 PM EDT [facility] Specimen Type POC Capillary 11/11/2024 8:20 PM EDT [facility] Blood Capillary blood specimen / Unknown 11/11/2024 8:18 PM EDT 11/11/2024 8:20 PM EDT us Nathaly Nowak MD LAB POINT OF CARE TE ST DOCKED DEVICE UNSOLICITED RESULTS Final Result Performing Organization Address City/[facility] de Phone Number HEALTHCARE LAB [address] [place] [address] * (ABNORMAL) POCT glucose meter (11/11/2024 5:59 PM EDT) Pathologist [facility] POCT Glucose 147(H) 74 - 99 mg/dL [...] Comment 11/11/2024 6:01 PM EDT HEALTHCARE LAB Counter Clerk ID BradenWade 6:01 PM EDT HEALTHCARE LAB Device ID [id number] 11/11/2024 6:01 PM EDT HEALTHCARE LAB Specimen Type POC Capillary 11/11/2024 6:01 PM EDT HEALTHCARE LAB Blood Capillary blood specimen / Unknown 11/11/2024 5:59 PM EDT 11/11/2024 6:01 PM EDT us Nathaly Nowak MD LAB POINT OF CARE TE ST DOCKED DEVICE UNSOLICITED RESULTS Final Result Performing Organization Address [facility] de Phone Number HEALTHCARE LAB [address] [place] [address] * POCT glucose meter (11/11/2024 5:20 PM [...] Comment 11/11/2024 5:22 PM EDT HEALTHCARE LAB Counter Clerk ID Wade Feliciano 5:22 PM EDT [facility] Device ID [id number] 11/11/2024 5:22 PM EDT [facility] Specimen Type POC Capillary 11/11/2024 5:22 PM EDT HEALTHCARE LAB Blood Capillary blood specimen / Unknown 11/11/2024 5:20 PM EDT 11/11/2024 5:22 PM EDT us Nathaly Nowak MD LAB POINT OF CARE TE ST DOCKED DEVICE UNSOLICITED RESULTS Final Result Performing Organization Address City/[facility] Co de Phone Number HEALTHCARE LAB [address] [place] [address] * ND NEGATIVE PRESSURE WOUND THERAPY DME >50 SQ [...] POCT glucose meter (11/11/2024 12:08 PM EDT) [facility] POCT Glucose 226(H) 74 - 99 [...] Comment 11/11/2024 12:10 PM EDT HEALTHCARE LAB Counter Clerk ID Braden Wade Tobias 12:10 PM EDT [facility] Device ID [id number] 11/11/2024 12:10 PM EDT HEALTHCARE LAB Specimen Type POC Capillary 11/11/2024 12:10 PM EDT HEALTHCARE LAB Blood Capillary blood specimen / Unknown 11/11/2024 12:08 PM EDT 11/11/2024 12:10 PM EDT Nathaly Nowak MD LAB POINT OF CARE TE ST DOCKED DEVICE UNSOLICITED RESULTS Final Result [facility] [address] [place] [address] * (ABNORMAL) POCT glucose meter (11/11/2024 9:08 [...] for testing. Comment 11/11/2024 9:09 AM EDT [facility] Counter Clerk ID aWde Feliciano 9:09 AM EDT [facility] Device ID [id number] 11/11/2024 9:09 AM EDT [facility] Specimen Type POC Capillary 11/11/2024 9:09 AM EDT [facility] Blood Capillary blood specimen / Unknown 11/11/2024 9:08 AM EDT 11/11/2024 9:09 AM EDT Nathaly Nowak MD LAB POINT OF CARE TE ST DOCKED DEVICE UNSOLICITED RESULTS Final Result [facility] [address] [place] [address] * POCT glucose meter (11/11/2024 8:27 AM [...] Comment 11/11/2024 8:28 AM EDT HEALTHCARE LAB Counter Clerk ID Wade Feliciano 8:28 AM EDT HEALTHCARE LAB Device ID [id number] 11/11/2024 8:28 AM EDT HEALTHCARE LAB Specimen Type POC Capillary 11/11/2024 8:28 AM EDT HEALTHCARE LAB Blood Capillary blood specimen / Unknown 11/11/2024 8:27 AM EDT 11/11/2024 8:28 AM EDT us Nathaly Nowak MD LAB POINT OF CARE TE ST DOCKED DEVICE UNSOLICITED RESULTS Final Result [facility] [address] [place] [address] * (ABNORMAL) Basic Metabolic Panel, Plasma (11/11/2024 [...] Resu lt [facility] [address] [place] [address] * (ABNORMAL) CBC W/O Differential (11/11/2024 12:56 [...] Resu lt [facility] [address] [place] [address] * (ABNORMAL) POCT glucose meter (11/10/2024 8:25 [...] Comment 11/10/2024 8:28 PM EDT HEALTHCARE LAB Counter Clerk ID Nelda Gerber 11/11/19 8:28 PM EDT HEALTHCARE LAB Device ID [id number] 11/10/2024 8:28 PM EDT HEALTHCARE LAB Specimen Type POC Capillary 11/10/2024 8:28 PM EDT [facility] Blood Capillary blood specimen / Unknown 11/10/2024 8:25 PM EDT 11/10/2024 8:28 PM EDT us Nathaly Nowak MD LAB POINT OF CARE TE ST DOCKED DEVICE UNSOLICITED RESULTS Final Result [facility]ARE LAB [address] [place] [address] * (ABNORMAL) POCT glucose meter (11/10/2024 4:45 [...] Comment 11/10/2024 4:47 PM EDT HEALTHCARE LAB Counter Clerk ID Esperanza Parks 11/10/2024 4:47 PM EDT [facility] Device ID [id number] 11/10/2024 4:47 PM EDT HEALTHCARE LAB Specimen Type POC Capillary 11/10/2024 4:47 PM EDT HEALTHCARE LAB Blood Capillary blood specimen / Unknown 11/10/2024 4:45 PM EDT 11/10/2024 4:47 PM EDT Nathaly Nowak MD LAB POINT OF CARE TE ST DOCKED DEVICE UNSOLICITED RESULTS Final Result Performing Organization Address City/State/[facility] Co de Phone Number HEALTHCARE LAB [address] [place] [address] * (ABNORMAL) POCT glucose meter (11/10/2024 12:13 PM EDT) [facility] POCT Glucose 131(H) 74 - 99 mg/dL [...] Comment 11/10/2024 12:14 PM EDT HEALTHCARE LAB Counter Clerk ID Esperanza Parks 11/10/2024 12:14 PM EDT [facility] Device ID [id number] 11/10/2024 12:14 PM EDT [facility] Specimen Type POC Capillary 11/10/2024 12:14 PM EDT HEALTHCARE LAB Blood Capillary blood specimen / Unknown 11/10/2024 12:13 PM EDT 11/10/2024 12:14 PM EDT us Nathaly Nowak MD LAB POINT OF CARE TE ST DOCKED DEVICE UNSOLICITED RESULTS Final Result Performing Organization Address [facility] Co de Phone Number [facility] [address] [place] [address] * Vancomycin, Peak, Plasma Please draw ~2 hours after 0800 dose of vancomycin finishes infusing. Consider obtaining level via peripheral stick. If peripheral stick is not feasible, please ensure that line is flushed well prior to drawing level. Than... (11/10/2024 10:56 AM EDT) [facility] Vancomycin, Peak, Plasma 23.8 20.0 - [...] ORDERABLES Final Res ult Performing Organization Address [facility] Co de Phone Number [facility] [address] [place] [address] * (ABNORMAL) POCT glucose meter (11/10/2024 8:03 AM EDT) [facility] POCT Glucose 174(H) 74 - 99 mg/dL 11/10/2024 8:04 AM EDT [facility] Comment:Accuracy of a glucos e [...] testing. Comment 11/10/2024 8:04 AM EDT [facility] Counter Clerk ID Esperanza Parks 11/10/2024 8:04 AM EDT [facility] Device ID [id number] 11/10/2024 8:04 AM EDT HEALTHCARE LAB Specimen Type POC Capillary 11/10/2024 8:04 AM EDT [facility] Blood Capillary blood specimen / Unknown 11/10/2024 8:03 AM EDT 11/10/2024 8:04 AM EDT Nathaly Nowak MD LAB POINT OF CARE TE ST DOCKED DEVICE UNSOLICITED RESULTS Final Result Performing Organization Address [facility] Co de Phone Number [facility] [address] [place] [address] * Vancomycin, Trough, Plasma Please draw ~30 [...] AM EDT 11/10/2024 7:51 AM EDT Narrative [facility] - 11/10/2024 8:24 AM EDT Therapeutic Trough level: 10-20ug/mL Supra-therapeutic Trough level: >20 ug/mL us Abigail Saey MD LAB BLOOD ORDERABLES Final Res ult Performing Organization Address City/[facility]/ZIP Co de Phone Number [facility] [address] [place] [address] * (ABNORMAL) CBC and Differential (11/10/2024 12:31 [...] Resu lt [facility] [address] [place] [address] * (ABNORMAL) Comprehensive Metabolic Panel, Plasma (11/10/2024 [...] Resu lt [facility] [address] [place] [address] * (ABNORMAL) POCT glucose meter (11/09/2024 8:04 PM EDT) [facility] POCT Glucose 114(H) 74 - 99 mg/dL [...] Comment 11/09/2024 8:06 PM EDT HEALTHCARE LAB Counter Clerk ID Maximiliano Hansen II 11/09/2024 8:06 PM EDT HEALTHCARE LAB Device ID [id number] 11/09/2024 8:06 PM EDT HEALTHCARE LAB Specimen Type POC Capillary 11/09/2024 8:06 PM EDT HEALTHCARE LAB Blood Capillary blood specimen / Unknown 11/09/2024 8:04 PM EDT 11/09/2024 8:06 PM EDT Nathaly Nowak MD LAB POINT OF CARE TE ST DOCKED DEVICE UNSOLICITED RESULTS Final Result [facility] [address] [place] [address] * (ABNORMAL) POCT glucose meter (11/09/2024 4:36 PM EDT) [facility] POCT Glucose 166(H) 74 - 99 [...] 11/09/2024 4:38 PM EDT [facility] Counter Clerk ID Kristian Sosa 11/09/2024 4:38 PM EDT [facility] Device ID [id number] 11/09/2024 4:38 PM EDT HEALTHCARE LAB Specimen Type POC Capillary 11/09/2024 4:38 PM EDT HEALTHCARE LAB Blood Capillary blood specimen / Unknown 11/09/2024 4:36 PM EDT 11/09/2024 4:38 PM EDT Nathaly Nowak MD LAB POINT OF CARE TE ST DOCKED DEVICE UNSOLICITED RESULTS Final Result Performing Organization Address City/State/[facility] Co de Phone Number [facility] [address] [place] [address] * PICC SINGLE LUMEN ([employer] L[employer]) (11/09/2024 1:11 PM EDT) Narrative Estefani Barraza RN - 11/09/2024 1:11 PM EDT Estefani Barraza RN 11/09/2024 1:12 PM Insert PICC line Date/Time: 11/09/2024 1:11 PM Performed by: Estefani Barraza RN Authorized by: Nathaly Nowak MD [place] Protocol: Verbal consent obtained?: Yes Written consent [...] selection rationale: Left pacemaker 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 Comment 11/09/2024 11:51 AM EDT [facility] Counter Clerk ID Kristian Sosa 11/09/2024 11:51 AM EDT [facility] Device ID [id number] 11/09/2024 11:51 AM EDT [facility] Specimen Type POC Capillary 11/09/2024 11:51 AM EDT [facility] Blood Capillary blood specimen / Unknown 11/09/2024 11:50 AM EDT 11/09/2024 11:51 AM EDT Nathaly Nowak MD LAB POINT OF CARE TE ST DOCKED DEVICE UNSOLICITED RESULTS Final Result [facility] [address] [place] [address] * (ABNORMAL) POCT glucose meter (11/09/2024 8:14 [...] Comment 11/09/2024 8:15 AM EDT HEALTHCARE LAB Counter Clerk ID Kristian Sosa 11/09/2024 8:15 AM EDT HEALTHCARE LAB Device ID [id number] 11/09/2024 8:15 AM EDT HEALTHCARE LAB Specimen Type POC Capillary 11/09/2024 8:15 AM EDT HEALTHCARE LAB Blood Capillary blood specimen / Unknown 11/09/2024 8:14 AM EDT 11/09/2024 8:15 AM EDT us Nathaly Nowak MD LAB POINT OF CARE TE ST DOCKED DEVICE UNSOLICITED RESULTS Final Result HEALTH[facility]ARE LAB [address] [place] [address] * (ABNORMAL) CBC and Differential (11/09/2024 4:15 [...] Resu lt [facility] [address] [place] [address] * (ABNORMAL) Comprehensive Metabolic Panel, Plasma (11/09/2024 [...] Resu lt [facility] [address] [place] [address] * (ABNORMAL) POCT glucose meter (11/09/2024 3:30 AM EDT) POCT Glucose 160(H) 74 - 99 mg/dL 11/09/2024 3:31 AM EDT [facility] Comment:Accuracy of a glucos e [...] testing. Comment 11/09/2024 3:31 AM EDT [facility] Counter Clerk ID Maximiliano Hansen II 11/09/2024 3:31 AM EDT HEALTHCARE LAB Device ID [id number] 11/09/2024 3:31 AM EDT HEALTHCARE LAB Specimen Type POC Capillary 11/09/2024 3:31 AM EDT HEALTHCARE LAB Blood Capillary blood specimen / Unknown 11/09/2024 3:30 AM EDT 11/09/2024 3:31 AM EDT Nathaly Nowak MD LAB POINT OF CARE TE ST DOCKED DEVICE UNSOLICITED RESULTS Final Result Performing Organization Address City/[facility] Co de Phone Number [facility] [address] [place] [address] * (ABNORMAL) POCT glucose meter (11/08/2024 7:21 [...] Comment 11/08/2024 7:22 PM EDT HEALTHCARE LAB Counter Clerk ID Maximiliano Hansen II 11/08/2024 7:22 PM EDT HEALTHCARE LAB Device ID [id number] 11/08/2024 7:22 PM EDT HEALTHCARE LAB Specimen Type POC Capillary 11/08/2024 7:22 PM EDT HEALTHCARE LAB Blood Capillary blood specimen / Unknown 11/08/2024 7:21 PM EDT 11/08/2024 7:22 PM EDT Nathaly Nowak MD LAB POINT OF CARE TE ST DOCKED DEVICE UNSOLICITED RESULTS Final Result Performing Organization Address City/[facility]/ZIP Co de Phone Number [facility] [address] [place] [address] * (ABNORMAL) POCT glucose meter (11/08/2024 5:12 [...] Comment 11/08/2024 5:14 PM EDT HEALTHCARE LAB Counter Clerk ID Estefani Sheth 11/08/2024 5:14 PM EDT HEALTHCARE LAB Device ID [id number] 11/08/2024 5:14 PM EDT HEALTHCARE LAB Specimen Type POC Capillary 11/08/2024 5:14 PM EDT [facility] Blood Capillary blood specimen / Unknown 11/08/2024 5:12 PM EDT 11/08/2024 5:14 PM EDT Nathaly Nowak MD LAB POINT OF CARE TE ST DOCKED DEVICE UNSOLICITED RESULTS Final Result Performing Organization Address City/State/[facility] Co de Phone Number HEALTHCARE LAB [address] [place] [address] * (ABNORMAL) POCT glucose meter (11/08/2024 12:03 [...] Comment 11/08/2024 12:05 PM EDT HEALTHCARE LAB Counter Clerk ID Estefani Sheth 11/08/2024 12:05 PM EDT HEALTHCARE LAB Device ID [id number] 11/08/2024 12:05 PM EDT HEALTHCARE LAB Specimen Type POC Capillary 11/08/2024 12:05 PM EDT [facility] Blood Capillary blood specimen / Unknown 11/08/2024 12:03 PM EDT 11/08/2024 12:05 PM EDT Nathaly Nowak MD LAB POINT OF CARE TE ST DOCKED DEVICE UNSOLICITED RESULTS Final Result Performing Organization Address [facility] Co de Phone Number [facility] [address] [place] [address] * Vancomycin, Peak, Plasma Please draw ~2 [...] ORDERABLES Final Resu lt Performing Organization Address [facility] Phone Number [facility] [address] [place] [address] * (ABNORMAL) POCT glucose meter (11/08/2024 8:00 AM EDT) Pathologist [facility] POCT Glucose 150(H) 74 - 99 mg/dL 11/08/2024 8:01 AM EDT [facility] Comment:Accuracy of a glucos e [...] 11/08/2024 8:01 AM EDT [facility] Counter Clerk ID Estefani Sheth 11/08/2024 8:01 AM EDT HEALTHCARE LAB Device ID [id number] 11/08/2024 8:01 AM EDT HEALTHCARE LAB Specimen Type POC Capillary 11/08/2024 8:01 AM EDT HEALTHCARE LAB Blood Capillary blood specimen / Unknown 11/08/2024 8:00 AM EDT 11/08/2024 8:01 AM EDT us Nathaly Nowak MD LAB POINT OF CARE TE ST DOCKED DEVICE UNSOLICITED RESULTS Final Result [facility]ARE [facility] [address] [place] [id number] * (ABNORMAL) CBC and Differential (11/08/2024 4:39 [...] Resu lt [facility] [address] [place] [address] * (ABNORMAL) Comprehensive Metabolic Panel, Plasma (11/08/2024 [...] Resu lt [facility] [address] [place] [address] * Vancomycin, Trough, Plasma Please draw ~30 [...] [facility]/ZIP Co de Phone Number [facility] [address] [place] [address] * (ABNORMAL) POCT glucose meter (11/07/2024 7:26 [...] 7:28 PM EDT [facility] Counter Clerk ID Maximiliano Hansen II 11/07/2024 7:28 PM EDT [facility] Device ID [id number] 11/07/2024 7:28 PM EDT [facility] Specimen Type POC Capillary 11/07/2024 7:28 PM EDT [facility] Blood Capillary blood specimen / Unknown 11/07/2024 7:26 PM EDT 11/07/2024 7:28 PM EDT Nathaly Nowak MD LAB POINT OF CARE TE ST DOCKED DEVICE UNSOLICITED RESULTS Final Result Performing Organization Address City/[facility] Co de Phone Number HEALTHCARE LAB [address] [place] [address] * (ABNORMAL) POCT glucose meter (11/07/2024 5:51 [...] Comment 11/07/2024 5:52 PM EDT HEALTHCARE LAB Counter Clerk ID Brigitte Castellon 11/07/2024 5:52 PM EDT [facility] Device ID [id number] 11/07/2024 5:52 PM EDT [facility] Specimen Type POC Capillary 11/07/2024 5:52 PM EDT HEALTHCARE LAB Blood Capillary blood specimen / Unknown 11/07/2024 5:51 PM EDT 11/07/2024 5:52 PM EDT us Nathaly Nowak MD LAB POINT OF CARE TE ST DOCKED DEVICE UNSOLICITED RESULTS Final Result Performing Organization Address City/[facility] Co de Phone Number HEALTHCARE LAB [address] [place] [address] * (ABNORMAL) POCT glucose meter (11/07/2024 4:47 [...] Comment 11/07/2024 4:48 PM EDT HEALTHCARE LAB Counter Clerk ID Estefani Sheth 11/07/2024 4:48 PM EDT HEALTHCARE LAB Device ID [id number] 11/07/2024 4:48 PM EDT HEALTHCARE LAB Specimen Type POC Capillary 11/07/2024 4:48 PM EDT HEALTHCARE LAB Blood Capillary blood specimen / Unknown 11/07/2024 4:47 PM EDT 11/07/2024 4:48 PM EDT Nathaly Nowak MD LAB POINT OF CARE TE ST DOCKED DEVICE UNSOLICITED RESULTS Final Result Performing Organization Address City/[facility]/ZIP Co de Phone Number HEALTHCARE LAB [address] [place] [address] * (ABNORMAL) POCT glucose meter (11/07/2024 12:22 [...] Comment 11/07/2024 12:24 PM EDT HEALTHCARE LAB Counter Clerk ID Estefani Sheth 11/07/2024 12:24 PM EDT HEALTHCARE LAB Device ID [id number] 11/07/2024 12:24 PM EDT HEALTHCARE LAB Specimen Type POC Capillary 11/07/2024 12:24 PM EDT [facility] Blood Capillary blood specimen / Unknown 11/07/2024 12:22 PM EDT 11/07/2024 12:24 PM EDT us Nathaly Nowak MD LAB POINT OF CARE TE ST DOCKED DEVICE UNSOLICITED RESULTS Final Result Performing Organization Address City/State/[facility] Co de Phone Number HEALTHCARE LAB [address] [place] [id number] * (ABNORMAL) CBC and Differential (11/07/2024 11:37 AM EDT) [facility] WBC Count 9.96 3.70 - 10.30 [...] AM EDT 11/07/2024 12:24 PM EDT Narrative [facility] - 11/07/2024 12:33 PM EDT Therapeutic decision making should be based on absolute values, rather than percentages. us Nathaly Nowak MD LAB BLOOD ORDERABLES Final Resu lt [facility] [address] [place] [address] * (ABNORMAL) Comprehensive Metabolic Panel, Plasma (11/07/2024 11:37 AM EDT) Glucose, Plasma 173(H) 74 - 99 mg/dL 11/07/2024 1:31 PM EDT [facility] BUN, Plasma 13 8 - 23 mg/dL 11/07/2024 1:31 PM EDT [facility] Creatinine, Plasma 0.92 0.70 - 1.20 mg/dL 11/07/2024 1:31 PM EDT [facility] BUN/Creatinine Ratio 14 11/07/2024 1:31 PM EDT [facility] Resu lt [facility] [address] [place] [address] * Type and Screen (11/07/2024 11:37 AM [...] ORDERABLES F inal Result Performing Organization Address City/[facility] Co de Phone Number BLOOD BANK [address] * (ABNORMAL) POCT glucose meter (11/07/2024 [...] Comment 11/07/2024 10:36 AM EDT HEALTHCARE LAB Counter Clerk ID Joy Iraheta 11/07/2024 10:36 AM EDT HEALTHCARE LAB Device ID [id number] 11/07/2024 10:36 AM EDT [facility] [...] de Phone Number [facility] [address] [place] [address] * (ABNORMAL) POCT glucose meter (11/07/2024 9:34 [...] Comment 11/07/2024 9:36 AM EDT HEALTHCARE LAB Counter Clerk ID Brigitte Castellon 11/07/2024 9:36 AM EDT [facility]ALTHCARE LAB Device ID [id number] 11/07/2024 9:36 AM EDT [facility] Specimen Type POC Capillary 11/07/2024 9:36 AM EDT [facility]ALTHCARE LAB Blood Capillary blood specimen / Unknown 11/07/2024 9:34 AM EDT 11/07/2024 9:36 AM EDT Nathaly Nowak MD LAB POINT OF CARE TE ST DOCKED DEVICE UNSOLICITED RESULTS Final Result Performing Organization Address City/State/[facility] Co de Phone Number [facility] [address] [place] [address] * (ABNORMAL) POCT glucose meter (11/07/2024 8:20 [...] Comment 11/07/2024 8:22 AM EDT HEALTHCARE LAB Counter Clerk ID Estefani Sheth 11/07/2024 8:22 AM EDT HEALTHCARE LAB Device ID [id number] 11/07/2024 8:22 AM EDT HEALTHCARE LAB Specimen Type POC Capillary 11/07/2024 8:22 AM EDT [facility]ALTHCARE LAB Blood Capillary blood specimen / Unknown 11/07/2024 8:20 AM EDT 11/07/2024 8:22 AM EDT Nathaly Nowak MD LAB POINT OF CARE TE ST DOCKED DEVICE UNSOLICITED RESULTS Final Result Performing Organization Address City/[facility] Co de Phone Number HEALTHCARE LAB [address] [place] [address] * (ABNORMAL) POCT glucose meter (11/07/2024 7:21 [...] 7:22 AM EDT [facility] Counter Clerk ID Brigitte Castellon 11/07/2024 7:22 AM EDT [employer] [facility] Device ID [id number] 11/07/2024 7:22 AM EDT [facility] Specimen Type POC Capillary 11/07/2024 7:22 AM EDT [facility] Blood Capillary blood specimen / Unknown 11/07/2024 7:21 AM EDT 11/07/2024 7:22 AM EDT Nathaly Nowak MD LAB POINT OF CARE TE ST DOCKED DEVICE UNSOLICITED RESULTS Final Result Performing Organization Address City/[facility] Co de Phone Number [facility] [address] [place] [address] * (ABNORMAL) POCT glucose meter (11/07/2024 6:25 [...] Comment 11/07/2024 6:27 AM EDT HEALTHCARE LAB Counter Clerk ID Nelda Gerber 11/08/19 6:27 AM EDT HEALTHCARE LAB Device ID [id number] 11/07/2024 6:27 AM EDT HEALTHCARE LAB Specimen Type POC Capillary 11/07/2024 6:27 AM EDT HEALTHCARE LAB Blood Capillary blood specimen / Unknown 11/07/2024 6:25 AM EDT 11/07/2024 6:27 AM EDT Nathaly Nowak MD LAB POINT OF CARE TE ST DOCKED DEVICE UNSOLICITED RESULTS Final Result Performing Organization Address City/[facility]/ZIP Co de Phone Number HEALTHCARE LAB [address] [place] [address] * (ABNORMAL) POCT glucose meter (11/07/2024 5:03 [...] Comment 11/07/2024 5:08 AM EDT HEALTHCARE LAB Counter Clerk ID Nelda Gerber 11/08/19 5:08 AM EDT HEALTHCARE LAB Device ID [id number] 11/07/2024 5:08 AM EDT HEALTHCARE LAB Specimen Type POC Capillary 11/07/2024 5:08 AM EDT [facility]ALTHCARE LAB Blood Capillary blood specimen / Unknown 11/07/2024 5:03 AM EDT 11/07/2024 5:08 AM EDT Nathaly Nowak MD LAB POINT OF CARE TE ST DOCKED DEVICE UNSOLICITED RESULTS Final Result Performing Organization Address City/[facility]/ZIP Co de Phone Number HEALTHCARE LAB [address] [place] [address] * (ABNORMAL) POCT glucose meter (11/07/2024 4:16 AM EDT) Pathologist [facility] POCT Glucose 142(H) 74 - 99 mg/dL [...] Comment 11/07/2024 4:18 AM EDT HEALTHCARE LAB Counter Clerk ID Nedla Gerber 11/08/19 4:18 AM EDT [employer] [facility] Device ID [id number] 11/07/2024 4:18 AM EDT [facility] Specimen Type POC Capillary 11/07/2024 4:18 AM EDT [employer] [facility] Blood Capillary blood specimen / Unknown 11/07/2024 4:16 AM EDT 11/07/2024 4:18 AM EDT us Nathaly Nowak MD LAB POINT OF CARE TE ST DOCKED DEVICE UNSOLICITED RESULTS Final Result Performing Organization Address City/State/[facility] Co de Phone Number HEALTHCARE LAB [address] [place] [address] * (ABNORMAL) POCT glucose meter (11/07/2024 3:21 AM EDT) Pathologist [facility] POCT Glucose 141(H) 74 - 99 mg/dL [...] 11/07/2024 3:23 AM EDT [facility] Counter Clerk ID Nelda Gerber 11/08/19 3:23 AM EDT [facility] Device ID [id number] 11/07/2024 3:23 AM EDT [facility] Specimen Type POC Capillary 11/07/2024 3:23 AM EDT [facility] Blood Capillary blood specimen / Unknown 11/07/2024 3:21 AM EDT 11/07/2024 3:23 AM EDT Nathaly Nowak MD LAB POINT OF CARE TE ST DOCKED DEVICE UNSOLICITED RESULTS Final Result [facility]ARE [facility] [address] [place] [address] * (ABNORMAL) POCT glucose meter (11/07/2024 2:10 [...] for testing. Comment 11/07/2024 2:12 AM EDT [facility] Counter Clerk ID Nelda Gerber 11/08/19 25 2:12 AM EDT [facility] Device ID [id number] 11/07/2024 2:12 AM EDT [facility] Specimen Type POC Capillary 11/07/2024 2:12 AM EDT [facility] Blood Capillary blood specimen / Unknown 11/07/2024 2:10 AM EDT 11/07/2024 2:12 AM EDT Nathaly Nowak MD LAB POINT OF CARE TE ST DOCKED DEVICE UNSOLICITED RESULTS Final Result [facility] [address] [place] [address] * (ABNORMAL) POCT glucose meter (11/07/2024 1:08 [...] Comment 11/07/2024 1:10 AM EDT HEALTHCARE LAB Counter Clerk ID Nelda Gerber 11/08/19 1:10 AM EDT HEALTHCARE LAB Device ID [id number] 11/07/2024 1:10 AM EDT HEALTHCARE LAB Specimen Type POC Capillary 11/07/2024 1:10 AM EDT [facility]ALTHCARE LAB Blood Capillary blood specimen / Unknown 11/07/2024 1:08 AM EDT 11/07/2024 1:10 AM EDT us Nathaly Nowak MD LAB POINT OF CARE TE ST DOCKED DEVICE UNSOLICITED RESULTS Final Result Performing Organization Address City/State/[facility] Co de Phone Number HEALTHCARE LAB [address] [place] [address] * (ABNORMAL) POCT glucose meter (11/07/2024 12:10 [...] Comment 11/07/2024 12:13 AM EDT HEALTHCARE LAB Counter Clerk ID Nelda Gerber 11/08/19 12:13 AM EDT HEALTHCARE LAB Device ID [id number] 11/07/2024 12:13 AM EDT HEALTHCARE LAB Specimen Type POC Capillary 11/07/2024 12:13 AM EDT [facility]ALTHCARE LAB Blood Capillary blood specimen / Unknown 11/07/2024 12:10 AM EDT 11/07/2024 12:13 AM EDT us Nathaly Nowak MD LAB POINT OF CARE TE ST DOCKED DEVICE UNSOLICITED RESULTS Final Result [facility] [address] [place] [address] * (ABNORMAL) POCT glucose meter (11/06/2024 11:14 PM EDT) Pathologist [facility] POCT Glucose 71(L) 74 - 99 mg/dL 11/06/2024 11:16 PM EDT [facility] Comment:Accuracy of [...] for testing. Comment 11/06/2024 11:16 PM EDT [facility] Counter Clerk ID Nelda Gerber 11/07/19 25 11:16 PM EDT [facility] Device ID [id number] 11/06/2024 11:16 PM EDT [facility] Specimen Type POC Capillary 11/06/2024 11:16 PM EDT [facility] Blood Capillary blood specimen / Unknown 11/06/2024 11:14 PM EDT 11/06/2024 11:16 PM EDT Nathaly Nowak MD LAB POINT OF CARE TE ST DOCKED DEVICE UNSOLICITED RESULTS Final Result [facility]ARE [facility] [address] [place] [address] * (ABNORMAL) POCT glucose meter (11/06/2024 10:07 [...] 11/06/2024 10:09 PM EDT [facility] Counter Clerk ID Nelda Gerber 11/07/19 10:09 PM EDT HEALTHCARE LAB Device ID [id number] 11/06/2024 10:09 PM EDT HEALTHCARE LAB Specimen Type POC Capillary 11/06/2024 10:09 PM EDT HEALTHCARE LAB Blood Capillary blood specimen / Unknown 11/06/2024 10:07 PM EDT 11/06/2024 10:09 PM EDT Nathaly Nowak MD LAB POINT OF CARE TE ST DOCKED DEVICE UNSOLICITED RESULTS Final Result Performing Organization Address City/[facility]/ZIP Co de Phone Number [facility] [address] [place] [address] * (ABNORMAL) POCT glucose meter (11/06/2024 8:22 [...] Comment 11/06/2024 8:25 PM EDT HEALTHCARE LAB Counter Clerk ID Nelda Gerber 11/07/19 8:25 PM EDT HEALTHCARE LAB Device ID [id number] 11/06/2024 8:25 PM EDT HEALTHCARE LAB Specimen Type POC Capillary 11/06/2024 8:25 PM EDT HEALTHCARE LAB Blood Capillary blood specimen / Unknown 11/06/2024 8:22 PM EDT 11/06/2024 8:25 PM EDT Nathaly Nowak MD LAB POINT OF CARE TE ST DOCKED DEVICE UNSOLICITED RESULTS Final Result Performing Organization Address City/[facility]/ZIP Co de Phone Number [facility] [address] [place] [address] * (ABNORMAL) POCT glucose meter (11/06/2024 7:31 PM EDT) [facility] POCT Glucose 359(H) 74 - 99 mg/dL [...] Comment 11/06/2024 7:32 PM EDT HEALTHCARE LAB Counter Clerk ID Nelda Gerber 11/07/19 7:32 PM EDT HEALTHCARE LAB Device ID [id number] 11/06/2024 7:32 PM EDT HEALTHCARE LAB Specimen Type POC Capillary 11/06/2024 7:32 PM EDT [facility] Blood Capillary blood specimen / Unknown 11/06/2024 7:31 PM EDT 11/06/2024 7:32 PM EDT Nathaly Nowak MD LAB POINT OF CARE TE ST DOCKED DEVICE UNSOLICITED RESULTS Final Result Performing Organization Address City/State/[facility] Co de Phone Number HEALTHCARE LAB [address] [place] [address] * (ABNORMAL) POCT glucose meter (11/06/2024 6:15 PM EDT) [facility] POCT Glucose 368(H) 74 - 99 mg/dL [...] Comment 11/06/2024 6:17 PM EDT HEALTHCARE LAB Counter Clerk ID Estefani Sheth 11/06/2024 6:17 PM EDT HEALTHCARE LAB Device ID [id number] 11/06/2024 6:17 PM EDT HEALTHCARE LAB Specimen Type POC Capillary 11/06/2024 6:17 PM EDT HEALTH[facility]ARE [facility] Blood Capillary blood specimen / Unknown 11/06/2024 6:15 PM EDT 11/06/2024 6:17 PM EDT Nathaly Nowak MD LAB POINT OF CARE TE ST DOCKED DEVICE UNSOLICITED RESULTS Final Result Performing Organization Address City/[facility] Co de Phone Number HEALTHCARE LAB [address] [place] [address] * (ABNORMAL) POCT glucose meter (11/06/2024 4:57 [...] 4:58 PM EDT [facility] Counter Clerk ID Estefani Sheth 11/06/2024 4:58 PM EDT HEALTHCARE LAB Device ID [id number] 11/06/2024 4:58 PM EDT [facility] Specimen Type POC Capillary 11/06/2024 4:58 PM EDT [facility] Blood Capillary blood specimen / Unknown 11/06/2024 4:57 PM EDT 11/06/2024 4:58 PM EDT Nathaly Nowak MD LAB POINT OF CARE TE ST DOCKED DEVICE UNSOLICITED RESULTS Final Result [facility]ARE [facility] [address] [place] [address] * (ABNORMAL) POCT glucose meter (11/06/2024 2:08 [...] Comment 11/06/2024 2:09 PM EDT HEALTHCARE LAB Counter Clerk ID Brigitte Castellon 11/06/2024 2:09 PM EDT HEALTHCARE LAB Device ID [id number] 11/06/2024 2:09 PM EDT HEALTHCARE LAB Specimen Type POC Capillary 11/06/2024 2:09 PM EDT HEALTH[facility]ARE [facility] Blood Capillary blood specimen / Unknown 11/06/2024 2:08 PM EDT 11/06/2024 2:09 PM EDT Nathaly Nowak MD LAB POINT OF CARE TE ST DOCKED DEVICE UNSOLICITED RESULTS Final Result Performing Organization Address City/State/[facility] Co de Phone Number HEALTHCARE LAB [address] [place] [address] * (ABNORMAL) POCT glucose meter (11/06/2024 12:27 [...] Comment 11/06/2024 12:28 PM EDT HEALTHCARE LAB Counter Clerk ID Jacinta Galloway 11/06/2024 12:28 PM EDT HEALTHCARE LAB Device ID [id number] 11/06/2024 12:28 PM EDT HEALTHCARE LAB Specimen Type POC Capillary 11/06/2024 12:28 PM EDT HEALTHCARE LAB Blood Capillary blood specimen / Unknown 11/06/2024 12:27 PM EDT 11/06/2024 12:28 PM EDT Nathaly Nowak MD LAB POINT OF CARE TE ST DOCKED DEVICE UNSOLICITED RESULTS Final Result [facility] [address] [place] [address] * (ABNORMAL) Fungal Culture, Tissue and ISIDRO (11/06/2024 11:34 AM EDT) Culture Reading Mycological 4 Weeks Rare [place] Sana parapsilosis (A) 12/05/2024 8:36 AM EDT [facility] Comment: This isolate has been identified using the FDA Approved Fanearyper [place] System The organism value for this result has been updated. These results have been appended to the previously preliminary verified report. Edited result: Previously reported as Yeast on 11/11/2024 at 1317 EDT. ISIDRO No fungal elements seen 12/05/2024 8:36 AM EDT [facility] Tissue [...] Nowak MD LAB MICROBIOLOGY - [facility]AL [facility] Final Result [facility] [address] [place] [address] * (ABNORMAL) Tissue Culture and Gram Stain (11/06/2024 11:34 AM EDT) Culture Moderate Growth 7:35 AM EDT [facility] Culture 2+ Enterobacter cloacae complex(A) ANGÉLICA 11/15/2024 7:35 AM EDT [facility] Comment: This isolate has been identified using the FDA Approved MALDI [place]per [place] System The organism value for this [...] by MALDI tof mass spectrometry using the Ranku database and is for research use only. [...] Final [facility] [address] [place] [address] * (ABNORMAL) Anaerobic Culture (11/06/2024 11:34 AM EDT) Culture No anaerobes isolated 11/14/2024 1:25 PM EDT [facility] Culture Staphylococcus pseudintermedius( A) 11/14/2024 1:25 PM EDT [facility] Comment: This result was determined by MALDI tof mass spectrometry using the Ranku database and is for research use only. [...] pseudintermedius Vancomycin ANGÉLICA <=0.5 ug/ml: Susceptible Nathaly Nwoak MD LAB MICROBIOLOGY - GENERAL ATIYA FRITZ Edited Result - Final [facility] [address] [place] [address] * (ABNORMAL) Routine Culture and Gram Stain (11/06/2024 11:29 AM EDT) Culture Moderate Growth 5:29 PM EDT [facility] Culture Enterobacter cloacae complex(A) 11/08/2024 5:29 PM EDT [facility] Comment: This isolate has been identified using the FDA Approved Arrively System For susceptibility results refer to: - [id number] The organism value for this result has [...] ATIYA FRITZ Final Result Performing Organization Address [facility] Co de Phone Number [facility] [address] [place] [address] * Fungal Culture, Routine (11/06/2024 11:29 AM EDT) Culture No Fungal Growth at 1 Week 11/13/2024 8:29 AM EDT [facility] Swab Topography unknown / Unknown 11/06/2024 11:29 AM EDT 11/06/2024 12:19 PM EDT Comment:Pre-op diagnosis: Surgical wound infection [T81.49XA] us Nathaly Nowak MD LAB MICROBIOLOGY - GENERAL ORDE RABONEIDA Final Result Performing Organization Address [facility] Co de Phone Number [facility] [address] [place] [address] * (ABNORMAL) Anaerobic Culture (11/06/2024 11:29 AM EDT) Culture No anaerobes isolated 11/14/2024 1:25 PM EDT [facility] Culture Streptococcus mitis/oralis group(A) 11/14/2024 1:25 PM EDT [facility] Comment: This result was determined by MALDI tof mass spectrometry using the Ranku database and is for research use only. [...] has been identified using the FDA Approved FanMob [place] System This is an appended report. [...] Edited Result - Final Performing Organization Address [facility]/ZIP Co de Phone Number [facility] [address] [place] [address] * Routine Culture and Gram Stain (11/06/2024 [...] ATIYA FRITZ Final Result Performing Organization Address [facility] Co de Phone Number [facility] [address] [place] [address] * Fungal Culture, Routine (11/06/2024 11:28 AM EDT) Culture No Fungal Growth at 1 Week 11/13/2024 8:29 AM EDT [facility] Swab Topography unknown / Unknown 11/06/2024 11:28 AM EDT 11/06/2024 12:20 PM EDT Comment:Pre-op diagnosis: Surgical wound infection [T81.49XA] Nathaly Nowak MD LAB MICROBIOLOGY - GENERAL ORDE LAM Final Result Performing Organization Address City/[facility]/ZIP Co de Phone Number [facility] [address] [place] [address] * Anaerobic Culture (11/06/2024 11:28 AM EDT) Culture No growth at day 4 11/13/2024 12:53 PM EDT [facility] Swab Topography unknown / Unknown 11/06/2024 11:28 AM EDT 11/06/2024 12:20 PM EDT Comment:Pre-op diagnosis: Surgical wound infection [T81.49XA] us Nathaly Nowak MD LAB MICROBIOLOGY - [facility] Final Result Performing Organization Address City/[facility]/ZIP Co de Phone Number [facility] [address] [place] [address] * (ABNORMAL) POCT glucose meter (11/06/2024 10:16 AM EDT) [facility] POCT Glucose 194(H) 74 - 99 mg/dL [...] Comment 11/06/2024 10:18 AM EDT HEALTHCARE LAB Counter Clerk ID Lacy Griffin 11/07/19 10:18 AM EDT HEALTHCARE LAB Device ID [id number] 11/06/2024 10:18 AM EDT HEALTHCARE LAB Specimen Type POC Capillary 11/06/2024 10:18 AM EDT [facility]ALTHCARE LAB Blood Capillary blood specimen / Unknown 11/06/2024 10:16 AM EDT 11/06/2024 10:18 AM EDT us Nathaly Nowak MD LAB POINT OF CARE TE ST DOCKED DEVICE UNSOLICITED RESULTS Final Result Performing Organization Address City/[facility]/ZIP Co de Phone Number HEALTHCARE LAB [address] [place] [address] * (ABNORMAL) POCT glucose meter (11/06/2024 5:58 AM EDT) [facility] POCT Glucose 182(H) 74 - 99 mg/dL [...] 11/06/2024 6:01 AM EDT [facility] Counter Clerk ID Raj Laird 11/07/19 6:01 AM EDT HEALTHCARE LAB Device ID [id number] 11/06/2024 6:01 AM EDT HEALTHCARE LAB Specimen Type POC Capillary 11/06/2024 6:01 AM EDT HEALTHCARE LAB Blood Capillary blood specimen / Unknown 11/06/2024 5:58 AM EDT 11/06/2024 6:01 AM EDT Nathaly Nowak MD LAB POINT OF CARE TE ST DOCKED DEVICE UNSOLICITED RESULTS Final Result [facility]ARE [facility] [address] [place] [address] * (ABNORMAL) POCT glucose meter (11/06/2024 5:36 AM EDT) [facility] POCT Glucose 202(H) 74 - 99 [...] 11/06/2024 5:38 AM EDT [facility] Counter Clerk ID Shahid Sanches 11/06/2024 5:38 AM EDT [facility] Device ID [id number] 11/06/2024 5:38 AM EDT [facility] Specimen Type POC Capillary 11/06/2024 5:38 AM EDT HEALTHCARE LAB Blood Capillary blood specimen / Unknown 11/06/2024 5:36 AM EDT 11/06/2024 5:38 AM EDT us Nathaly Nowak MD LAB POINT OF CARE TE ST DOCKED DEVICE UNSOLICITED RESULTS Final Result Performing Organization Address City/[facility] Co de Phone Number [facility] [address] [place] [address] * (ABNORMAL) Hemoglobin A1c (11/06/2024 1:07 AM [...] Adults <6.0% Children and Adolescents <7.5% Source: [place] [employer]. Standards of medical care in diabetes,2017. Diabetes Care.2017:40 (suppl 1):S1-S135. us Nathaly Nowak MD LAB BLOOD ORDERABLES Final Resu lt Performing Organization Address City/[facility] Co de Phone Number [facility] [address] [place] [address] * Blood Culture (Aerobic/Anaerobet Set) (11/06/2024 1:07 AM EDT) Culture No growth at day 5 11/11/2024 2:49 AM EDT [facility] Blood Structure of right hand / Unknown Venipuncture / Unknown 11/06/2024 1:07 AM EDT 11/06/2024 2:36 AM EDT us Nathaly Nowak MD LAB MICROBIOLOGY - GENERAL ORDE RABLES Final Result [facility] [address] [place] [address] * Blood Culture (Aerobic/Anaerobet Set) (11/06/2024 1:07 AM EDT) Pathologist [facility] Culture No growth at day 5 11/11/2024 3:01 AM EDT [facility] Blood Structure of antecubital vein / Unknown Venipuncture / Unknown 11/06/2024 1:07 AM EDT 11/06/2024 2:36 AM EDT us Nathaly Nowak MD LAB MICROBIOLOGY - GENERAL [facility] LAM Final Result [facility] [address] [place] [address] * (ABNORMAL) Basic metabolic panel (11/06/2024 1:07 [...] [facility]/ZIP Co de Phone Number [facility] [address] [place] [address] * Phosphorus (11/06/2024 1:07 AM EDT) Phosphorus, Plasma 3.2 2.5 - 4.5 mg/dL 11/06/2024 1:41 AM EDT [facility] Blood Venous blood specimen / Unknown Venipuncture / Unknown 11/06/2024 1:07 AM EDT 11/06/2024 1:12 AM EDT Nathaly Nowak MD LAB BLOOD ORDERABLES Final Resu lt Performing Organization Address [facility] Co de Phone Number [facility] [address] [place] [address] * Magnesium (11/06/2024 1:07 AM EDT) Magnesium, Plasma 2.2 1.9 - 2.4 mg/dL 11/06/2024 1:41 AM EDT [facility] Blood Venous blood specimen / Unknown Venipuncture / Unknown 11/06/2024 1:07 AM EDT 11/06/2024 1:12 AM EDT Nathaly Nowak MD LAB BLOOD ORDERABLES Final Resu lt Performing Organization Address City/[facility]/ZIP Co de Phone Number [facility] [address] [place] [address] * (ABNORMAL) CBC (11/06/2024 1:07 AM EDT) [facility] Signature WBC Count 9.70 3.70 - 10.30 [...] Resu lt [facility] [address] [place] [address] * Gold Top (11/06/2024 12:58 AM EDT) Extra Hold for add-ons 11/06/2024 3:21 AM EDT [facility] Comment:Auto resulted. Blood Venous blood specimen / Unknown 11/06/2024 12:58 AM EDT 11/06/2024 1:13 AM EDT us Nathaly Nowak MD LAB BLOOD ORDERABLES Final Resu lt [facility] [address] [place] [address] * Gold Top (11/06/2024 12:58 AM EDT) Extra Hold for add-ons 11/06/2024 3:21 AM EDT [facility] Comment:Auto resulted. Blood Venous blood specimen / Unknown 11/06/2024 12:58 AM EDT 11/06/2024 1:13 AM EDT us Nathaly Nowak MD LAB BLOOD ORDERABLES Final Resu lt Performing Organization Address City/[facility]/ZIP Co de Phone Number [facility] [address] [place] [address] * Light Green Top (11/06/2024 12:58 AM EDT) Extra Hold for add-ons 11/06/2024 3:21 AM EDT [facility] Comment:Auto resulted. Blood Venous blood specimen / Unknown 11/06/2024 12:58 AM EDT 11/06/2024 1:13 AM EDT us Nathaly Nowak MD LAB BLOOD ORDERABLES Final Resu lt Performing Organization Address City/[facility]/ZIP Co de Phone Number [facility] [address] [place] [address] * Light Blue Top (11/06/2024 12:58 AM EDT) Extra Hold for add-ons 11/06/2024 3:21 AM EDT [facility] Comment:Auto resulted. Blood Venous blood specimen / Unknown 11/06/2024 12:58 AM EDT 11/06/2024 1:13 AM EDT us Nathaly Nowak MD LAB BLOOD ORDERABLES Final Resu lt Performing Organization Address [facility] Co de Phone Number [facility] [address] [place] [address] * Light Blue Top (11/06/2024 12:58 AM EDT) Pathologist [facility] Extra Hold for add-ons 11/06/2024 3:21 AM EDT [facility] Comment:Auto resulted. Blood Venous blood specimen / Unknown 11/06/2024 12:58 AM EDT 11/06/2024 1:13 AM EDT Nathaly Nowak MD LAB BLOOD ORDERABLES Final Resu lt Performing Organization Address [facility] de Phone Number [facility] [address] [place] [address] * (ABNORMAL) POCT glucose meter (11/06/2024 12:45 AM EDT) Pathologist [facility] POCT Glucose 204(H) 74 - 99 mg/dL [...] 11/06/2024 12:48 AM EDT [facility] Counter Clerk ID Raj Laird 11/07/19 12:48 AM EDT [facility] Device ID [id number] 11/06/2024 12:48 AM EDT [facility] Specimen Type POC Capillary 11/06/2024 12:48 AM EDT [facility] Blood Capillary blood specimen / Unknown 11/06/2024 12:45 AM EDT 11/06/2024 12:48 AM EDT Nathaly Nowak MD LAB POINT OF CARE TE ST DOCKED DEVICE UNSOLICITED RESULTS Final Result [facility] [address] [place] [address] documented in this encounter Visit Diagnoses Diagnosis [...] Intravenous, Every 12 hours, First dose on [facility] 11/09/24 at 1515, Until Discontinued, Routine Given 11/14/2024 2:42 PM EDT 10 mL Given 11/14/2024 3:03 AM EDT 10 mL Given 11/13/2024 4:43 PM EDT 10 mL Sodium Hypochlorite (Dakin's (HALF-Strength)) external solution 1 Application Irrigation, Daily, First dose on [facility] 11/09/24 at 0945, Until Discontinued, Routine [...] documented as of this encounter Care Teams Service Planner Relationship Specialty Start Date End Date Asad Victor MD [address] [place] [address] PCP - General 10/07/22 documented as of this encounter
--- OUTSIDE RECORDS SUMMARY | 2024-11-06 10:47 | XMS_ITS | Encounter Summary ---
Author Organization Healthcare Address [address] [place] [address] Care Team Providers Care Cot Assembler Name Role Phone Asad Victor MD Primary Care Provider + [phone] Reason for Visit * Auth/Cert (Routine) Specialty Diagnoses / Procedures Referred By Contac t Referred To Contact Diagnoses Wound infection Post-op Vasc Sx wounds - sx on 10/17 at Nathaly Nowak MD [address] [facility] [address] [place] [address] Phone: tel: fax: [facility] Emergency Department [address] [place] [address] Phone: tel: Referral ID Status Reason Start Date Expiration Date Visits Re quested Visits Authorized [id number] 1 1 Encounter Details Date Type Department Care Team (Late st Contact Info) Description 11/06/2024 10:47 AM EDT Anesthesia Event [facility] OPERATING ROOM [address] [place] [address] Bill Sue MD [address] [place] [address] Sabrina Mckeon PA [address] [facility] [address] [place] [address] Anesthesia Record Procedure Summary Procedure [...] by Es Garcia RN 11/08/24 1139 by Brgiitte Castellon RN ETT Placement Date: 10/25 06/18; [...] drink first t dino in the morning (EYE-SUPPLIER RELATIONSHIP DIRECTOR) to steady your nerves or to [...] and Staff Patient location during procedure: OR R D ENGINEER: Asad Lechuga CRNA, DNP Performed: R D ENGINEER Patient Condition Indications for airway management: [...] placement (Left) Location: [facility] OR 16 / [place] OR Surgeons: Nathaly Nowak MD [facility] Mono Ana Bobby is a [...] Abnormal Ventricular Rate 85 Atrial Rate 85 MD Interval 146 QRSD Interval 128 QT Interval 390 QTC Interval 464 P [place] 52 R [place] 263 T Wave [place] 57 Diagnosis Atrial-sensed ventricular-paced rhythm Diagnosis Biventricular [...] is no recent study available for direct rmnb-xn-cpkr comparison. [facility]: Pre-operative CIED Report Assessment and Sara- Procedural Reommendations: Name: Mono Bobby Date: 10/17/2024 : 1960 Age: 64 y.o. Patient has a Pet Stylist: Berger COMPASS OPERATOR-PM Remaining battery longevity adequate. Lead integrity [...] RVR s/p CABG), CAD (CAD s/p multiple [place]'s and 3V CABG02/2019, 2 stents prior to CABG), carotid artery disease (carotid artery disease s/p R CEA 2016), dysrhythmias (3rd degree AV block COMPASS OPERATOR-P placed 08/2023 for Wenkeback with 11 sec pause), hyperlipidemia, pacemaker and PVD. Does not have angina, CHF, murmur, orthopnea, syncope or valvular heart disease. hypertension: Cardio additional comments: Follows with OSH Card last seen 09/25/24 ([place]) . Respiratory: home oxygen (2L). no asthma: [...] ENDARTERECTOMY N/A 2017 Endarterectomy Carotid Artery from [employer] CORONARY ANGIOPLASTY Left Coronary Angiography With Concomitant Left Heart Catheterization from [employer] CORONARY ARTERY BYPASS GRAFT N/A 2018 3V ELBOW SURGERY Right ENDARTERECTOMY Left 10/17/2024 common/SFA/Profunda thromboendarterectomy, EIA/FLOOR SANDING MACHINE OPERATOR stent HERNIA REPAIR KNEE ARTHROSCOPY Left VASCULAR SURGERY Left 09/21/2024 FLOOR SANDING MACHINE OPERATOR pseudoaneurym injection [5] Social History Tobacco Use [...] PM EDT Office Visit [facility] [address] [facility] [place] [address] Oscar Appiah MD [address] [facility] [address] [place] [address] 12/19/2024 7:30 AM EDT Appointment [facility] [address] [facility] 5th Floor [address] [place] [address] 12/19/2024 8:00 AM EDT Appointment [facility] [address] [place] [address] 12/19/2024 9:00 AM EDT Office Visit [facility] [address] [place] [address] Nathaly Nowak MD [address] [facility] [address] [place] [address] documented as of this encounter Goals Goal Patient Goal Type Associated Problems Recent Progress Patient-Stated? Author Autogenera louise Goal Care Plan Autogenerated Problem No Ekta Arnett documented as of this encounter Procedures Procedure Name Priority Date/Time Associated Diagnosis Comments PB ANESTHESIA PLACEHOLDER Routine 11/06/2024 10:58 AM EDT MD AN ELECTIVE ENDOTRACHEAL AIRWAY Routine 11/06/2024 10:58 AM EDT documented in this encounter Results * MD AN ELECTIVE ENDOTRACHEAL AIRWAY, PB ANESTHESIA PLACEHOLDER (11/06/2024 10:58 AM EDT) Narrative Asad Lechuga CRNA, DNP - 11/06/2024 10:58 AM EDT Asad Lechuga CRNA, DNP 11/06/2024 11:05 AM Airway Date/Time: 11/06/2024 10:58 AM Reason: elective Airway not difficult General Information and Staff Patient location during procedure: OR R D ENGINEER: Asad Lechuga CRNA, DNP Performed: ISH Patient [...] documented as of this encounter Care Teams Cot Assembler Relationship Specialty Start Date End Date Asad Victor MD [address] [place] [address] PCP - General 10/07/22 documented as of this encounter
--- OUTSIDE RECORDS SUMMARY | 2024-11-18 13:10 | XMS_ITS | Encounter Summary ---
Author Organization [employer] ([place], [place], [place], [place]) Address [address] [place] [address] Care Team Providers Care Jig Hand Name Role Phone Unavailable Primary Care Provider Unavailabl e Reason for Visit * Reason Comments Wound Care Encounter Details Date Type Department Care Team (Late st Contact Info) Description 11/18/2024 1:10 PM EDT Office Visit [facility] 1 [place] [address] Jerry Monroe Jr., MD [address] [place] [address] Non-pressure chronic ulcer of skin of [...] health nurse( if you have home health) [facility] for an appointment. documented in this encounter [...] upper leg. Patient was admitted to the [facility] on November 05, 2024 and dischargedon [...] line. Patient is getting daily infusions at [facility] through his PICC line for [...] provider verified the correct patient, procedure, equipment, lab support service tech, and site/side marked as required. Debridement Details [...] provider verified the correct patient, procedure, equipment, lab support service tech, and site/side marked as required. Debridement Details [...] Description 12/06/2024 4:15 PM EDT Clinical Support [address] [address] 12/09/2024 3:30 PM EDT Clinical Support [address] [address] 12/11/2024 2:40 PM EDT Office Visit [address] [address] Jerry Monroe Jr., MD [address] [place] [address] 12/13/2024 3:30 PM EDT Clinical Support [address] [address] 12/16/2024 3:30 PM EDT Clinical Support [address] [address] 12/18/2024 3:00 PM EDT Office Visit [address] [address] Jerry Monroe Jr., MD [address] [place] [address] 12/20/2024 3:30 PM EDT Clinical Support [facility] [address] [place] [phone] documented as of this encounter Procedures Procedure Name Priority Date/Time Associated Diagnosis Comments [place] DEBRIDEMENT MUSCLE &/FASCIA EA ADDL 20 SQ CM Routine 11/18/2024 1:10 PM EDT 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) Localized tissue (HCC) Other specified local infections of the skin and subcutaneous tissue [place] DEBRIDEMENT MUSCLE &/FASCIA EA ADDL 20 SQ CM Routine 11/18/2024 1:10 PM EDT 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) Localized tissue (HCC) Other specified local infections of the skin and subcutaneous tissue [place] DEBRIDEMENT MUSCLE &/FASCIA 1ST 20 SQ CM/< Routine 11/18/2024 1:10 PM EDT 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) Localized tissue (HCC) Other specified local infections of the skin and subcutaneous tissue [place] DEBRIDEMENT MUSCLE &/FASCIA EA ADDL 20 SQ CM Routine 11/18/2024 1:10 PM EDT 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) Localized tissue (HCC) Other specified local infections of the skin and subcutaneous tissue [place] DEBRIDEMENT MUSCLE &/FASCIA EA ADDL 20 SQ CM Routine 11/18/2024 1:10 PM EDT 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) Localized tissue (HCC) Other specified local infections of the skin and subcutaneous tissue [place] DEBRIDEMENT MUSCLE &/FASCIA 1ST 20 SQ CM/< Routine 11/18/2024 1:10 PM EDT 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 Debridement Details [...] MD PROCEDURE/MINOR SURGICAL ORDERABLES Final Result * [place] DEBRIDEMENT MUSCLE &/FASCIA 1ST 20 SQ CM/<, [place] DEBRIDEMENT MUSCLE &/FASCIA EA ADDL 20SQ CM, [place] DEBRIDEMENT MUSCLE &/FASCIA EA ADDL 20 SQ [...] provider verified the correct patient, procedure, equipment, lab support service tech, and site/side marked as required. Debridement Details [...]
--- OUTSIDE RECORDS SUMMARY | 2024-11-20 14:15 | XMS_ITS | Encounter Summary ---
Author Organization [employer] ([place], [place], [place], [place]) Address [address] [place] [address] Care Team Providers Care Television Cameraman Name Role Phone Unavailable Primary Care Provider Unavailabl e Reason for Visit * Reason Comments Wound Care Nurse visit for woun d vac change, wound care and dressing change Encounter Details Date Type Department Care Team (Late st Contact Info) Description 11/20/2024 2:15 PM EDT Clinical Support [facility] 1 [place] [address] Jerry Monroe Jr., MD [address] [place] [address] Non-pressure chronic ulcer of skin of [...] Description 12/06/2024 4:15 PM EDT Clinical Support [facility] 1 [place] [address] 12/09/2024 3:30 PM EDT Clinical Support [address] [address] 12/11/2024 2:40 PM EDT Office Visit [address] [address] Jerry Monroe Jr., MD [address] [place] [address] 12/13/2024 3:30 PM EDT Clinical Support [address] [address] 12/16/2024 3:30 PM EDT Clinical Support [address] [address] 12/18/2024 3:00 PM EDT Office Visit [address] [address] Jerry Monroe Jr., MD [address] [place] [address] 12/20/2024 3:30 PM EDT Clinical Support [address] [address] documented as of this encounter Results * Wound Treatment (11/22/2024 5:14 PM EDT) Jerry Monroe Jr., MD NURSING PATHWAYS ORDERABL ES Final Result documented in this encounter Visit Diagnoses Diagnosis 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
--- OUTSIDE RECORDS SUMMARY | 2024-11-22 16:15 | XMS_ITS | Encounter Summary ---
Author Organization [employer] ([place], [place], [place], [place]) Address [address] [place] [address] Care Team Providers Care Vice President Diversity Name Role Phone Unavailable Primary Care Provider Unavailabl e Reason for Visit * Reason Comments Wound Care Encounter Details Date Type Department Care Team (Late st Contact Info) Description 11/22/2024 4:15 PM EDT Clinical Support [facility] 1 [place] [address] Jerry Monroe Jr., MD [address] [place] [address] Non-pressure chronic ulcer of skin of [...] Description 12/06/2024 4:15 PM EDT Clinical Support [facility] [place] 1 [place] [address] 12/09/2024 3:30 PM EDT Clinical Support [facility] 1 [place] [address] 12/11/2024 2:40 PM EDT Office Visit [facility] Wound [facility] 1 [place] [address] Jerry Monroe Jr., MD [address] [place] [address] 12/13/2024 3:30 PM EDT Clinical Support [facility] 1 [place] [address] 12/16/2024 3:30 PM EDT Clinical Support [facility] 1 [place] [address] 12/18/2024 3:00 PM EDT Office Visit [facility] 1 [place] [address] Jerry Monroe Jr., MD [address] [place] [address] 12/20/2024 3:30 PM EDT Clinical Support [facility] [place] 1 [place] [address] documented as of this encounter Procedures Procedure [...]
--- OUTSIDE RECORDS SUMMARY | 2024-11-27 14:20 | XMS_ITS | Encounter Summary ---
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 Patient was admitted to the [facility] on November 05, 2024 and [...] is getting daily infusions at [facility] through his PICC line for antibiotics. He [...] provider verified the correct patient, procedure, equipment, product support sales representative, and site/side marked as required. Debridement [...] provider verified the correct patient, procedure, equipment, product support sales representative, and site/side marked as required. Debridement [...] Description 12/06/2024 4:15 PM EDT Clinical Support [facility] 1 [place] [address] 12/09/2024 3:30 PM EDT Clinical Support [facility] 1 [place] [address] 12/11/2024 2:40 PM EDT Office Visit [facility] 1 [place] [address] Jerry Monroe Jr., MD [address] [place] [address] 12/13/2024 3:30 PM EDT Clinical Support [facility] 1 [place] [address] 12/16/2024 3:30 PM EDT Clinical Support [facility] 1 [place] [address] 12/18/2024 3:00 PM EDT Office Visit [facility] 1 [place] [address] Jerry Monroe Jr., MD [address] [place] [address] 12/20/2024 3:30 PM EDT Clinical Support [facility] 1 [place] [address] documented as of this encounter Procedures Procedure Name Priority Date/Time Associated Diagnosis Comments [place] DEBRIDEMENT MUSCLE &/FASCIA EA ADDL 20 [...] tissue documented in this encounter Results * [place] DEBRIDEMENT MUSCLE &/FASCIA 1ST 20 [...] provider verified the correct patient, procedure, equipment, product support sales representative, and site/side marked as required. Debridement [...] provider verified the correct patient, procedure, equipment, product support sales representative, and site/side marked as required. Debridement [...]
--- OUTSIDE RECORDS SUMMARY | 2024-11-29 16:00 | XMS_ITS | Encounter Summary ---
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 * Nallely Sky [...] Description 12/06/2024 4:15 PM EDT Clinical Support [facility] 1 [place] [address] 12/09/2024 3:30 PM EDT Clinical Support [facility] 1 [place] [address] 12/11/2024 2:40 PM EDT Office Visit [facility] 1 [place] [address] Jerry Monroe Jr., MD [address] [place] [address] 12/13/2024 3:30 PM EDT Clinical Support [facility] 1 [place] [address] 12/16/2024 3:30 PM EDT Clinical Support [facility] 1 [place] [address] 12/18/2024 3:00 PM EDT Office Visit [facility] 1 [place] [address] Jerry Monroe Jr., MD [address] [place] [address] 12/20/2024 3:30 PM EDT Clinical Support [facility] 1 [place] [address] documented as of this encounter Visit Diagnoses Not on filedocumented in this encounter
--- OUTSIDE RECORDS SUMMARY | 2024-12-02 14:15 | XMS_ITS | Encounter Summary ---
Author Organization [employer] ([place], [place], [place], [place]) Address [address] [place] [address] Care Team Providers Care Middle School Music Teacher Name Role Phone Unavailable Primary Care Provider Unavailabl e Reason for Visit * Reason Comments Wound Care Nurse visit for woun d vac and dressing change, wound care Encounter Details Date Type Department Care Team (Late st Contact Info) Description 12/02/2024 2:15 PM EDT Clinical Support [facility] 1 [place] [address] Jerry Monroe Jr., MD [address] [place] [address] Non-pressure chronic ulcer of skin of [...] Sign Reading Time Taken Comments Blood Pressure 158/78 12/02/2024 2:18 PM EDT Pulse 62 12/02/2024 2:18 PM EDT Temperature 36.1 C (96.9 F) 12/02/2024 2:18 PM EDT Respiratory Rate 18 12/02/2024 2:18 PM EDT Oxygen Saturation - - Inhaled Oxygen Concentration - - Weight - - Height - - Body Mass Index - - documented in this encounter Progress Notes * Roselia Peña - 12/02/2024 2:15 PM EDT Patient seen today for non provider visit. Dressing removed as follows: Wound vac and drape, 1 black foam (groin), 1 white foam and 1 black (inside thigh) Dressing applied per order as indicated below: Comments: Remove dressings. Clean wound with 0.9 [...] defined types were placed in this encounter. * Roselia Peña - 12/02/2024 2:15 PM EDT Images from the original note were not included. Attached media from the original note were not included. 12/02/24 1500 Wound 11/18/24 Groin Left Date First Assessed/Time First Assessed: 11/18/24 1508 Wound Approximate Age at First Assessment (Weeks): 4 weeks Location: Groin Wound Location Orientation: Left Wound Image Images linked Site Assessment Granulation;Sloughing Sara-Wound Assessment Scarred Wound Length (cm) 6.6 cm Wound Width (cm) 5.5 cm Wound Surface Area (cm^2) 28.51 cm^2 Wound Depth (cm) 4.6 cm Wound Volume (cm^3) 87.43 cm^3 Tunneling 1.3 cm Tunneling Clock Position of Wound 10 Margins Well-defined edges Wound Healing % 66 Drainage Description Serosanguineous Drainage Amount Small Odor None Wound Bed Granulation (%) 60 % Wound Bed Slough (%) 40 % Non-staged Wound Description Full thickness * Roselia Peña - 12/02/2024 2:15 PM EDT Images from the original note were not included. Attached media from the original note were not included. 12/02/24 1505 Wound 11/18/24 Leg upper Left;Medial Date First Assessed/Time First Assessed: 11/18/24 1505 Wound Approximate Age at First Assessment (Weeks): 4 weeks Location: Leg upper Wound Location Orientation: Left;Medial Wound Image Images linked Site Assessment Granulation;Sloughing Sara-Wound Assessment Scarred Wound Length (cm) 4.5 cm Wound Width (cm) 1 cm Wound Surface Area (cm^2) 3.53 cm^2 Wound Depth (cm) 5.3 cm Wound Volume (cm^3) 12.488 cm^3 Margins Well-defined edges Wound Healing % 61 Drainage Description Serosanguineous Drainage Amount Small Odor None Wound Bed Granulation (%) 90 % Wound Bed Slough (%) 10 % Non-staged Wound Description Full thickness documented in this encounter Plan of Treatment Upcoming Encounters Date Type Department Care Team (Late st Contact Info) Description 12/06/2024 4:15 PM EDT Clinical Support [facility] [place] 1 [place] [address] 12/09/2024 3:30 PM EDT Clinical Support [facility] [place] 1 [place] [address] 12/11/2024 2:40 PM EDT Office Visit [facility] [place] 1 [place] [address] Jerry Monroe Jr., MD [address] [place] [address] 12/13/2024 3:30 PM EDT Clinical Support [facility] [place] 1 [place] [address] 12/16/2024 3:30 PM EDT Clinical Support [facility] [place] 1 [place] [address] 12/18/2024 3:00 PM EDT Office Visit [facility] 1 [place] [address] Jerry Monroe Jr., MD [address] [place] [address] 12/20/2024 3:30 PM EDT Clinical Support [facility] 1 [place] [address] documented as of this encounter Visit Diagnoses Diagnosis 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
--- OUTSIDE RECORDS SUMMARY | 2024-12-04 13:40 | XMS_ITS | Encounter Summary ---
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) Procedures Wound Treatment Jerry Monroe Jr., MD [address] [place] [address] Phone: tel: fax: Referral ID Status Reason Start Date Expiration Date V isits Requested Visits Authorized [id number] Pending Review 12/04/2024 12/04/2025 3 3 Reason for Visit * Reason Comments Wound Care Encounter Details Date Type Department Care Team (Late st Contact Info) Description 12/04/2024 1:40 PM EDT Office Visit [facility] 1 [place] [address] Jerry Monroe Jr., MD [address] [place] [address] Non-pressure chronic ulcer of skin of [...] upper leg. Patient was admitted to the [facility] on November 05, 2024 [...] line. Patient is getting [facility] through [facility] line for [...] provider verified the correct patient, procedure, equipment, endoscopy support specialist, and site/side marked as required. [...] provider verified the correct patient, procedure, equipment, endoscopy support specialist, and site/side marked as required. [...] Description 12/06/2024 4:15 PM EDT Clinical Support [facility] 1 [place] [phone] 12/09/2024 3:30 PM EDT Clinical Support [facility] 1 [place] [address] 12/11/2024 2:40 PM EDT Office Visit [facility] 1 [place] [address] Jerry Monroe Jr., MD [address] [place] [address] 12/13/2024 3:30 PM EDT Clinical Support [facility] 1 [place] [address] 12/16/2024 3:30 PM EDT Clinical Support [facility] 1 [place] [address] 12/18/2024 3:00 PM EDT Office Visit [facility] 1 [place] [address] Jerry Monroe Jr., MD [address] [place] [address] 12/20/2024 3:30 PM EDT Clinical Support [facility] 1 [place] [address] documented as of this encounter Procedures Procedure [...] tissue documented in this encounter Results * [place] DEBRIDEMENT MUSCLE &/FASCIA 1ST 20 [...] provider verified the correct patient, procedure, equipment, endoscopy support specialist, and site/side marked as required. [...] provider verified the correct patient, procedure, equipment, endoscopy support specialist, and site/side marked as required. [...]
--- OUTSIDE RECORDS SUMMARY | 2024-12-06 08:06 | XMS_ITS | Encounter Summary ---
Author Organization Healthcare Address [address] [place] [address] Care Team Providers Care Windows Vmware Engineer Name Role Phone Asad Victor MD Primary Care Provider + [phone] Encounter Details Date Type Department Care Team (Late st Contact Info) Description 12/04/2024 Telephone [facility] [address] [facility] 5th Floor Wing D, [address] [place] [address] Nathaly Nowak MD [address] [facility] [address] [place] [address] Social History Tobacco Use Types [...] drink first t dino in the morning (EYE-CERAMIC DESIGN ENGINEER) to steady your nerves or to get rid of a hangover? 0 10/18/2021 CAGE Questionnaire Score 0 022 Utilities Answer Date Recorded In the past 12 months has th e [employer], gas, oil, or water company threatened to shut off services in your home? No 11/07/2024 Sex and Gender Information Value Date Recorded Sex Assigned at Not on file Legal Sex Male 8:57 PM EDT Gender Identity Not on file Sexual Orientation Not on file documented as of this encounter Miscellaneous Notes * Telephone Encounter - Shewmaker, Jacinta R, RN - 12/05/2024 10:20 AM EDT Returned phone call to Judy at [facility]. Patient previously stated that he is receiving wound care at [facility]. We unfortunately do not have these records at this time, we have sent two requests and are awaiting them at this time. Patient has not yet been seen in clinic for his post-operative appointment. * Telephone Encounter - Clare Fleming - 12/04/2024 11:35 AM EDT Clinical Concern/Question Reason for Call: judy at [facility] calling for wound measurements for wound vac. Please call Best contact number: Other: [phone] Optimal time of day to reach caller: [...] Office Visit [facility] [address] [place] [address] Oscar Appiah MD [address] [facility] [address] [place] [address] 12/19/2024 7:30 AM EDT Appointment [facility] Vascular Lab [address] 5th Floor Wing [address], [address] [place] [address] 12/19/2024 8:00 AM EDT Appointment [facility] Vascular Lab [address] [facility] 5th Floor Wing D, [address] [place] [address] 12/19/2024 9:00 AM EDT Office Visit [facility] [address] [facility] 5th Floor Wing [address], [address] [place] [address] Nathaly Nowak MD [address] [facility] [address] [place] [address] documented as of this encounter [...] documented as of this encounter Care Teams Windows Vmware Engineer Relationship Specialty Start Date End Date Asad Victor MD [address] [place] [address] PCP - General 10/07/22 documented as of this encounter
--- OUTSIDE RECORDS SUMMARY | 2024-12-06 08:13 | XMS_ITS | Encounter Summary ---
Author Organization [employer] ([place], [place], [place], [place]) Address [address] [place] [address] Care Team Providers Care Cash Clerk Name Role Phone Unavailable Primary Care [...] Clinical Support [facility] Wound Care [address] [address] 12/09/2024 3:30 PM EDT Clinical Support [facility] [place] [address] [place] [address] 12/11/2024 2:40 PM EDT Office Visit [address] [address] Jerry Monroe Jr., MD [address] [place] [address] 12/13/2024 3:30 PM EDT Clinical Support [address] [address] 12/16/2024 3:30 PM EDT Clinical Support [address] [address] 12/18/2024 3:00 PM EDT Office Visit [facility] [address] [place] [address] Jerry Monroe Jr., MD [address] [place] [address] 12/20/2024 3:30 PM EDT Clinical Support [facility] [place] [address] [place] [address] documented as of this encounter Visit Diagnoses Not on filedocumented in this encounter
--- OUTSIDE RECORDS SUMMARY | 2024-12-06 08:13 | XMS_ITS | Encounter Summary ---
Author Organization [facility] Address [address] [place] [address] Care Team Providers Care Events Administrative Assistant Name Role Phone Asad Victor MD Primary Care Provider + [phone] Encounter Details Date Type Department Care Team [...] drink first t dino in the morning (EYE-BINDING CUTTER) to steady your nerves or to [...] Description 12/13/2024 2:00 PM EDT Office Visit [facility] [address] [facility] [place] [address] Oscar Appiah MD [address] [facility] [address] [place] [address] 12/19/2024 7:[address] [facility] Vascular Lab [address] 5th Floor [address], [address] [place] [address] 12/19/2024 8:[address] [facility] Vascular Lab [address] 5th Floor [address], [address] [place] [address] 12/19/2024 9:00 AM EDT Office Visit [facility] Clinic [address] 5th Floor [address], [address] [place] [address] Nathaly Nowak MD [address] [place] [address] documented as of this encounter Goals Goal [...] documented as of this encounter Care Teams Events Administrative Assistant Relationship Specialty Start Date End Date Asad Victor MD [address] [place] [address] PCP - General 10/07/22 documented as of this encounter
--- OUTSIDE RECORDS SUMMARY | 2024-12-06 08:17 | XMS_ITS | Encounter Summary ---
Author Organization [employer] ([place], [place], [place], [place]) Address [address] [place] [address] Care Team Providers Care Money Laundering Investigator Name Role Phone Unavailable Primary Care Provider [...] Description 12/06/2024 4:15 PM EDT Clinical Support [facility] Wound Care [address] [address] 12/09/2024 3:30 PM EDT Clinical Support [facility] Care [place] 1 [place] [address] 12/11/2024 2:40 PM EDT Office Visit [address] [address] Jerry Monroe Jr., MD [address] [place] [address] 12/13/2024 3:30 PM EDT Clinical Support [address] [address] 12/16/2024 3:30 PM EDT Clinical Support [address] [address] 12/18/2024 3:00 PM EDT Office Visit [facility] Center 1 [place] [address] Jerry Monroe Jr., MD [address] [place] [address] 12/20/2024 3:30 PM EDT Clinical Support [facility] Wound Care [place] [address] [place] [address] documented as of this encounter Visit Diagnoses Not on filedocumented in this encounter
--- OUTSIDE RECORDS SUMMARY | 2024-12-06 08:19 | XMS_ITS | Encounter Summary ---
Author Organization Healthcare Address [address] [id number] Care Team Providers Care Assistant [employer] Coach Name Role Phone Asad Victor MD Primary Care Provider + [phone] Reason for Visit * Reason Onset Date Comments HCN Clinical Concern/Question 11/15/2024 Encounter Details Date Type Department Care Team (Late st Contact Info) Description 11/15/2024 Telephone OR Clinic [facility] [address] [facility] [address]th Floor [address] [place] [address] Nathaly Nowak MD [address] [facility] [address] [place] [address] HCN Clinical Concern/Question Social History [...] drink first t dino in the morning ([employer]) to steady your nerves or to get [...] has been receiving his wound care through [facility] in [place]. Records requested from there. Post-op appointment request [...] with info. Thank you Best contact number: [phone] (mobile) Optimal time of day to reach [...] Description 12/13/2024 2:00 PM EDT Office Visit [facility] [address] [place] [address] Oscar Appiah MD [address] [facility] [address] [place] [address] 12/19/2024 7:30 AM EDT Appointment [facility] [address] [place] [address] 12/19/2024 8:00 AM EDT Appointment [facility] [address] [place] [address] 12/19/2024 9:00 AM EDT Office Visit [facility] [address] [place] [address] Nathaly Nowak MD [address] [facility] [address] [place] [address] documented as of this encounter Goals Goal [...] documented as of this encounter Care Teams Assistant Boys Track Coach Relationship Specialty Start Date End Date Asad Victor MD [address] [place] [id number] PCP - General 10/07/22 documented as of this encounter
--- OUTSIDE RECORDS SUMMARY | 2024-12-06 08:20 | XMS_ITS | Encounter Summary ---
Author Organization [employer] ([place], [place], [place], [place]) Address [address] [place] [address] Care Team Providers Care Metal Lather Name Role Phone Unavailable Primary Care Provider [...] Description 12/06/2024 4:15 PM EDT Clinical Support [facility] [address] [address] 12/09/2024 3:30 PM EDT Clinical Support [facility] [address] [place] [address] 12/11/2024 2:40 PM EDT Office Visit [address] [address] Jerry Monroe Jr., MD [address] [place] [address] 12/13/2024 3:30 PM EDT Clinical Support [address] [address] 12/16/2024 3:30 PM EDT Clinical Support [address] [address] 12/18/2024 3:00 PM EDT Office Visit [facility] [address] [place] [phone] Jerry Monroe Jr., MD [address] [place] [address] 12/20/2024 3:30 PM EDT Clinical Support [facility] [address] [place] [address] documented as of this encounter Visit Diagnoses Not on filedocumented in this encounter
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
--- OUTSIDE RECORDS SUMMARY | 2024-12-06 08:20 | XMS_ITS | Encounter Summary ---
Author Organization Healthcare Address [address] [id number] Care Team Providers Care Die Welder Name Role Phone Asad Victor MD Primary Care Provider + [phone] Encounter Details Date Type Department Care Team (Late st Contact Info) Description 10/22/2024 Telephone Vascular Surgery [address] [place] [address] Alison Beltrán, EMAIL ENGINEER, DNP [address] [facility] [address] [place] [address] Social History Tobacco Use Types Packs/Day Years [...] first t dino in the morning (EYE-RESTAURANT GREETER) to steady your nerves or to get [...] Notes * Telephone Encounter - Alison Beltrán, EMAIL ENGINEER, DNP - 10/22/2024 11:39 AM EDT Returned patient call. Patient s/p left common/superficial/profunda femoral thromboendarterectomy with bovine patch repair and left external iliac artery/AUTOMATION TESTER stent with Dr Gautam on 10/17/24. Patient [...] PM EDT Office Visit [facility] [address] [place] [address] Oscar Appiah MD [address] [facility] [address] [place] [address] 12/19/2024 7:30 AM EDT Appointment [facility] [address], [address] [place] [address] 12/19/2024 8:00 AM EDT Appointment [facility] [address] [place] [address] 12/19/2024 9:00 AM EDT [facility] [address] 5th Floor Wing D, [address] [place] [address] Nathaly Nowak MD [address] [facility] [address] [place] [address] documented as of this encounter [...] as of this encounter Care Teams Die Welder Relationship Specialty Start Date End Date Asad Victor MD [address] [place] [address] PCP - General 10/07/22 documented as of this encounter
--- OUTSIDE RECORDS SUMMARY | 2024-12-06 08:20 | XMS_ITS | Encounter Summary ---
Author Organization [facility] Address [address] [place] [address] Care Team Providers Care Mixing Operator Name Role Phone Asad Victor MD Primary Care Provider + [phone] Encounter Details Date Type Department Care Team [...] first t dino in the morning (EYE-RN COMPLEX CARE) to steady your nerves or to get [...] 12/13/2024 2:00 PM EDT Office [facility] [address] [facility] [place] [address] Oscar Appiah MD [address] [facility] [address] [place] [address] 12/19/2024 7:30 AM EDT Appointment [facility] Vascular Lab [address] 5th Floor Wing [address], [address] [place] [address] 12/19/2024 8:00 AM EDT Appointment [facility] [address] 5th Floor Wing [address], [address] [place] [address] 12/19/2024 9:00 AM EDT Office Visit [facility] [address] 5th Floor Wing D, [address] [place] [address] Nathaly Nowak MD [address] [place] [address] documented as of this encounter Goals Goal [...] documented as of this encounter Care Teams Mixing Operator Relationship Specialty Start Date End Date Asad Victor MD [address] [place] [address] PCP - General 10/07/22 documented as of this encounter
--- OUTSIDE RECORDS SUMMARY | 2024-12-06 08:21 | XMS_ITS | Clinical Summary ---
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); Localized tissue (HCC); Other specified local infections of the skin and subcutaneous tissue; Diabetes mellitus with skin ulcer (HCC) 12/04/2024 Travel 12/02/2024 2:15 PM EDT Clinical Support [facility] 1 [place] [address] Jerry Monroe Jr., MD 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) 12/02/2024 Travel 11/29/2024 4:00 PM EDT Clinical Support [facility] 1 [place] [address] Jerry Monroe Jr., MD 11/27/2024 2:20 PM EDT Office Visit [facility] 1 [place] [address] Jerry Monroe Jr., MD 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); Localized tissue (HCC); Other specified local infections of the skin and subcutaneous tissue; Diabetes mellitus with skin ulcer (HCC) 11/27/2024 Travel 11/22/2024 4:15 PM EDT Clinical Support [facility] [address] [place] [address] Jerry Monroe Jr., MD 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) 11/20/2024 2:15 PM EDT [facility] 1 [place] [address] Jerry Monroe Jr., MD 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) 11/20/2024 Travel 11/18/2024 1:10 PM EDT [facility] 1 [place] [address] Jerry Monroe Jr., MD Non-pressure chronic ulcer [...] Description 12/06/2024 4:15 PM EDT [facility] Support [facility] 1 [place] [address] 12/09/2024 3:30 PM EDT Clinical Support [facility] 1 [place] [address] 12/11/2024 2:40 PM EDT Office Visit [facility] 1 [place] [address] Jerry Monroe Jr., MD [address] [place] [address] 12/13/2024 3:30 PM EDT Clinical Support [facility] [place] [address] [place] [address] 12/16/2024 3:30 PM EDT Clinical Support [facility] [place] [address] [place] [address] 12/18/2024 3:00 PM EDT Office Visit [facility] 1 [place] [address] Jerry Monroe Jr., MD [address] [place] [address] 12/20/2024 3:30 PM EDT Clinical Support [facility] 1 [place] [address] Health Maintenance Due Date Last Done Comments [...] 02/06/2021 Tobacco Cessation Counseling and Screening (12+) 12/04/2025 12/04/2024 Procedures Procedure Name Priority Date/Time Associated [...] other sites with necrosis of muscle (HCC) DE DEBRIDEMENT MUSCLE &/FASCIA EA ADDL 20 [...] tissue from Last 3 Months Results * DE DEBRIDEMENT MUSCLE &/FASCIA 1ST 20 SQ CM/<, DE DEBRIDEMENT MUSCLE &/FASCIA EA ADDL 20SQ CM [...] provider verified the correct patient, procedure, equipment, medical support assistant, and site/side marked as required. [...] DE DEBRIDEMENT MUSCLE &/FASCIA EA ADDL 20SQ CM [...] provider verified the correct patient, procedure, equipment, medical support assistant, and site/side marked as required. [...] provider verified the correct patient, procedure, equipment, medical support assistant, and site/side marked as required. [...] provider verified the correct patient, procedure, equipment, medical support assistant, and site/side marked as required. [...] NURSING PATHWAYS ORDERABL ES Final Result * DE DEBRIDEMENT MUSCLE &/FASCIA [...] provider verified the correct patient, procedure, equipment, medical support assistant, and site/side marked as required. [...] provider verified the correct patient, procedure, equipment, medical support assistant, and site/side marked as required. [...] Final Result from Last 3 Months Insurance [facility] MCR ADV DUAL COMPLETE MEDICAID OF [place]
--- OUTSIDE RECORDS SUMMARY | 2024-12-06 08:21 | XMS_ITS | Encounter Summary ---
Author Organization Healthcare Address [address] [place] [address] Care Team Providers Care Tester Operator Helper Name Role Phone Asad Victor MD Primary Care Provider + [phone] Encounter Details Date Type Department Care Team (Late st Contact Info) Description 11/27/2024 Orders Only [address] [address] Vaishali Kraus MD [address] [place] [address] [address] [place] [address] Therapeutic drug monitoring (Primary Dx) [...] first t dino in the morning (EYE-YOUTH COURT JUDGE) to steady your nerves or to get [...] EDT Office Visit [facility] [address] [facility] [place] [address] Oscar Appiah MD [address] [facility] [address] [place] [address] 12/19/2024 7:30 AM EDT Appointment [facility] [address] 5th Floor [address], [address] [place] [address] 12/19/2024 8:00 AM EDT Appointment [facility] [address] 5th [address], [address] [place] [address] 12/19/2024 9:00 AM EDT Office Visit [facility] [address] 5th Floor [address], [address] [place] [address] Nathaly Nowak MD [address] [place] [address] Scheduled Orders Name Type Priority [...] documented as of this encounter Care Teams Tester Operator Helper Relationship Specialty Start Date End Date Asad Victor MD [address] [place] [address] PCP - General 10/07/22 documented as of this encounter
--- OUTSIDE RECORDS SUMMARY | 2024-12-06 08:21 | XMS_ITS | Encounter Summary ---
Author Organization Healthcare Address [address] [place] [address] Care Team Providers Care Foreign Trade Teacher Name Role Phone Asad Victor MD Primary Care Provider + [phone] Encounter Details Date Type Department Care Team (Late st Contact Info) Description 10/17/2024 Orders Only External Location [address] [place] [address] Provider, External Social History Tobacco Use Types [...] in the past 12 m [facility], were you homeless or living [...] drink first t dino in the morning (EYE-AIR CARRIER INSPECTOR) to steady your nerves or to get rid of a hangover? 0 10/18/2021 CAGE Questionnaire Score 0 022 Utilities Answer Date Recorded In the past 12 months has th e [employer], gas, oil, or water [employer] threatened to shut off services in your [...] EDT Office Visit [facility] [address] [facility] [place] [address] Oscar Appiah MD [address] [facility] [address] [place] [address] 12/19/2024 7:30 AM EDT Appointment [facility] [address] 5th Floor [address] [place] [address] 12/19/2024 8:00 AM EDT Appointment [facility] [address] 5th Floor [address] [place] [address] 12/19/2024 9:00 AM EDT Office Visit [facility] [address] 5th Floor Wing [address], [address] [place] [address] Nathaly Nowak MD [address] [place] [address] documented as of this encounter Goals Goal [...] documented as of this encounter Care Teams Foreign Trade Teacher Relationship Specialty Start Date End Date Asad Victor MD [address] [place] [address] PCP - General 10/07/22 documented as of this encounter
--- OUTSIDE RECORDS SUMMARY | 2024-12-06 08:21 | XMS_ITS | Encounter Summary ---
Author Organization [facility] Address [address] [place] [address] Care Team Providers Care Carton Stenciler Name Role Phone Asad Victor MD Primary Care Provider + [phone] Encounter Details Date Type Department Care Team [...] drink first t dino in the morning (EYE-LINEN ATTENDANT) to steady your nerves or to [...] Description 12/13/2024 2:00 PM EDT [facility] Visit [facility] [address] [place] [address] Oscar Appiah MD [address] [address] 12/19/2024 7:30 AM EDT Appointment [facility] Vascular Lab [address] 5th Floor [address], [address] [place] [address] 12/19/2024 8:00 AM EDT Appointment [facility] [address] [facility] 5th Floor Wing D, [address] [place] [address] 12/19/2024 9:00 AM EDT Office Visit [facility] [address] 5th Floor [address], [address] [place] [address] Nathaly Nowak MD [address] [facility] [address] [place] [address] documented as of this encounter [...] documented as of this encounter Care Teams Carton Stenciler Relationship Specialty Start Date End Date Asad Victor MD [address] [place], [place] [id number] PCP - General 10/07/22 documented as of this encounter
--- OUTSIDE RECORDS SUMMARY | 2024-12-06 08:22 | XMS_ITS | Referral Summary ---
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); Localized tissue (HCC); Other specified local infections of the skin and subcutaneous tissue; Diabetes mellitus with skin ulcer (HCC) 12/02/2024 Travel 12/02/2024 2:15 PM EDT Clinical Support [facility] [place] [address] [place] [address] Jerry Monroe Jr., MD 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) 11/29/2024 4:00 PM EDT Clinical Support [facility] [place] 1 [place] [address] Jerry Monroe Jr., MD 11/27/2024 Travel 11/27/2024 2:20 PM EDT Office Visit [facility] [place] [address] [place] [address] Jerry Monroe Jr., MD 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); Localized tissue (HCC); Other specified local infections of the skin and subcutaneous tissue; Diabetes mellitus with skin ulcer (HCC) 11/22/2024 4:15 PM EDT Clinical Support [facility] [place] [address] [place] [address] Jerry Monroe Jr., MD 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) 11/20/2024 Travel 11/20/2024 2:15 PM EDT Clinical Support [facility] 1 [place] [address] Jerry Monroe Jr., MD 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) 11/18/2024 Travel 11/18/2024 1:10 PM EDT Office Visit [facility] 1 [place] [address] Jerry Monroe Jr., MD Non-pressure chronic ulcer [...] Description 12/06/2024 4:15 PM EDT Clinical Support [facility] [place] 1 [place] [address] 12/09/2024 3:30 PM EDT Clinical Support [facility] [place] 1 [place] [address] 12/11/2024 2:40 PM EDT Office Visit [facility] 1 [place] [address] Jerry Monroe Jr., MD [address] [place] [address] 12/13/2024 3:30 PM EDT Clinical Support [facility] 1 [place] [address] 12/16/2024 3:30 PM EDT Clinical Support [facility] 1 [place] [address] 12/18/2024 3:00 PM EDT Office Visit [facility] [place] [address] [place] [address] Jerry Monroe Jr., MD [address] [place] [address] 12/20/2024 3:30 PM EDT Clinical Support [facility] 1 [place] [address] Procedures Procedure Name Priority Date/Time Associated Diagnosis [...] verified the correct patient, procedure, equipment, support dba, and site/side marked as required. Debridement Details [...] verified the correct patient, procedure, equipment, support dba, and site/side marked as required. Debridement Details [...] verified the correct patient, procedure, equipment, support dba, and site/side marked as required. Debridement Details [...] verified the correct patient, procedure, equipment, support dba, and site/side marked as required. Debridement Details [...] verified the correct patient, procedure, equipment, support dba, and site/side marked as required. Debridement Details [...] verified the correct patient, procedure, equipment, support dba, and site/side marked as required. Debridement Details [...] Result from Last 3 Months Insurance [facility] ADV DUAL COMPLETE MEDICAID OF [place]
--- OUTSIDE RECORDS SUMMARY | 2024-12-06 08:22 | XMS_ITS | Encounter Summary ---
Author Organization [employer] ([place], [place], [place], [place]) Address [address] [place] [address] Care Team Providers Care Bailer Operators Supervisor Name Role Phone Unavailable Primary Care [...] Description 12/06/2024 4:15 PM EDT Clinical Support [facility] [address] [address] 12/09/2024 3:30 PM EDT Clinical Support [facility] [place] 1 [place] [address] 12/11/2024 2:40 PM EDT Office Visit [address] [address] Jerry Monroe Jr., MD [address] [place] [address] 12/13/2024 3:30 PM EDT Clinical Support [address] [address] 12/16/2024 3:30 PM EDT Clinical Support [address] [address] 12/18/2024 3:00 PM EDT Office [facility] 1 [place] [address] Jerry Monroe Jr., MD [address] [place] [address] 12/20/2024 3:30 PM EDT Clinical Support [facility] [place] 1 [place] [address] documented as of this encounter Visit Diagnoses Not on filedocumented in this encounter
--- OUTSIDE RECORDS SUMMARY | 2024-12-06 08:23 | XMS_ITS | Encounter Summary ---
Author Organization [facility] Address [address] [place] [address] Care Team Providers Care Tab Builder Name Role Phone Asad Victor MD Primary Care Provider + [phone] Encounter Details Date Type Department Care Team [...] drink first t dino in the morning (EYE-FRANCHISE DEVELOPMENT MANAGER) to steady your nerves or to [...] Office Visit [facility] [address] [facility] [place] [address] Oscar Appiah MD [address] [place] [address] 12/19/2024 7:30 AM EDT Appointment [facility] [address] [facility] 5th Floor Wing [address], [address] [place] [address] 12/19/2024 8:00 AM EDT Appointment [facility] [address] [facility] 5th Floor [address] [place] [address] 12/19/2024 9:00 AM EDT Office Visit [facility] [address] [facility] 5th Floor [address], [address] [place] [address] Nathaly Nowak MD [address] [place] [address] documented as of this encounter [...] documented as of this encounter Care Teams Tab Builder Relationship Specialty Start Date End Date Asad Victor MD [address] [place] [address] [place]I [place] [address] PCP - General 10/07/22 documented as of this encounter
--- OUTSIDE RECORDS SUMMARY | 2024-12-06 08:23 | XMS_ITS | Encounter Summary ---
Author Organization Healthcare Address [address] [place] [address] Care Team Providers Care Ruby On Rails Engineer Name Role Phone Asad Victor MD Primary Care Provider + [phone] Encounter Details Date Type Department Care Team (Late st Contact Info) Description 11/05/2024 Orders Only External Location [address] [place] [address] Provider, External Social History Tobacco Use Types [...] drink first t dino in the morning (EYE-REGISTERED NURSES) to steady your nerves or to get rid of a hangover? 0 10/18/2021 CAGE Questionnaire Score 0 022 Utilities Answer Date Recorded In the past 12 months has th e [employer], gas, oil, or water company threatened to [...] Description 12/13/2024 2:00 PM EDT Office Visit [facility] [address] [facility] [place] [address] Oscar Appiah MD [address] [facility] [address] [place] [address] 12/19/2024 7:30 AM EDT Appointment [facility] [address] 5th Floor [address] [place] [address] 12/19/2024 8:00 AM EDT Appointment [facility] [address] 5th Floor [address] [place] [address] 12/19/2024 9:00 AM EDT Office Visit [facility] [address] 5th Floor [address] [place] [address] Nathaly Nowak MD [address] [place] [address] documented as of this encounter Goals Goal [...] documented as of this encounter Care Teams Ruby On Rails Engineer Relationship Specialty Start Date End Date Asad Victor MD [address] [place] [address] PCP - General 10/07/22 documented as of this encounter
--- OUTSIDE RECORDS SUMMARY | 2024-12-06 08:23 | XMS_ITS | Encounter Summary ---
Author Organization Healthcare Address [address] [place] [address] Care Team Providers Care Automotive Worker Foreman Name Role Phone Asad Victor MD Primary Care Provider + [phone] Encounter Details Date Type Department Care Team (Late st Contact Info) Description 11/15/2024 Clinical Support [place] [id number] [place] [address] Charly Orlando, PharmD [address] [place] [address] [address] [place] [address] Social History Tobacco Use Types [...] [facility] the [facility], were you homeless or living [...] first t dino in the morning (EYE-COMMERCIAL CREDIT PORTFOLIO MANAGER) to steady your nerves or to get rid of a hangover? 0 10/18/2021 CAGE Questionnaire Score 0 022 Utilities Answer Date Recorded In the past 12 months has th e [employer], gas, oil, or water company threatened to [...] Description 12/13/2024 2:00 PM EDT Office Visit [facility] [address] [facility] [place] [address] Oscar Appiah MD [address] [facility] [address] [place] [address] 12/19/2024 7:30 AM EDT Appointment [facility] Vascular Lab [address] [place] [address] 12/19/2024 8:00 AM EDT Appointment [facility] Lab [address] [facility] 5th Floor Wing [address], [address] [place] [address] 12/19/2024 9:00 AM EDT Office Visit [facility] [address] [facility] 5th Floor Wing [address], [address] [place] [address] Nathaly Nowak MD [address] [place] [address] documented as of this encounter [...] as of this encounter Care Teams Automotive Worker Foreman Relationship Specialty Start Date End Date Asad Victor MD [address] [place] [address] PCP - General 10/07/22 documented as of this encounter
--- OUTSIDE RECORDS SUMMARY | 2024-12-06 08:24 | XMS_ITS | Encounter Summary ---
Author Organization [employer] ([place], [place], [place], [place]) Address [address] [place] [address] Care Team Providers Care Realty Loan Specialist Name Role Phone Unavailable Primary Care [...] [facility] Care [address] [address] 12/09/2024 3:30 PM EDT Clinical Support [facility] [place] [address] [place] [address] 12/11/2024 2:40 PM EDT Office Visit [address] [address] Jerry Monroe Jr., MD [address] [place] [address] 12/13/2024 3:30 PM EDT Clinical Support [address] [address] 12/16/2024 3:30 PM EDT Clinical Support [address] [address] 12/18/2024 3:00 PM EDT Office Visit [facility] [address] [place] [address] Jerry Monroe Jr., MD [address] [place] [address] 12/20/2024 3:30 PM EDT Clinical Support [facility] [place] [address] [place] [address] documented as of this encounter Visit Diagnoses Not on filedocumented in this encounter
[2024-12-06] MEDS: SODIUM CHLORIDE 0.9% 10ML FLUSH SYRINGE 10 ML IV (08:28)
[2024-12-06 08:29] VITALS: BP 142/53; PULSE 67; RESP 18; TEMP 36.6; O2SAT 98
[2024-12-06] MEDS: SODIUM CHLORIDE 0.9% IV (08:29)
[2024-12-06] MEDS: MICAFUNGIN SODIUM IV (08:29)
[2024-12-06] MEDS: ERTAPENEM SODIUM 1 GM in 0.9 % SODIUM CHLORIDE 50 ML IV (09:36)
[2024-12-06 10:06] VITALS: BP 151/58; PULSE 82; RESP 18; O2SAT 96
[2024-12-06 10:14] VITALS: BP 154/60; PULSE 62; RESP 18; O2SAT 96
== END 2024-12-06 10:14 | disposition home or self-care (01) ==
LOC: INF 08:03
PROVIDERS: PCP Family Medicine
DX: T81.49XA Infection following a procedure, other surgical site, initial encounter (principal); L08.9 Local infection of the skin and subcutaneous tissue, unspecified
CPT/HCPCS: 96365; 96367; J1335; J2248

== ENCOUNTER 2024-12-07 08:07 | Outpatient (CLI) | payer MEDICARE, OTHER, SELFPAY ==
--- OUTSIDE RECORDS SUMMARY | 2024-10-11 10:15 | XMS_ITS | Encounter Summary ---
Author Organization [facility] Address [address] [place] [address] Care Team Providers Care Feather Baler Name Role Phone Asad Victor MD Primary Care Provider + [phone] Encounter Details Date Type Department Care Team (Latest Contact Info) Description 10/11/2024 10:15 AM EDT Pre-Admission Testing [facility]op [facility] [address], [address]st [place] [phone] Preop testing (Primary Dx) Anesthesia Record Procedure [...] Hand; Site Prep: Chlorhexidine ; Local Anesth: [place]; Technique: Anatomical landmarks; Inserted by: CHRISTIAN Acuna; [...] G; Orientation: Right; Location: Axillary; Inserted by: POLICY SERVICE COORDINATOR; Securement: Sutured; Patient Tolerance: Tolerated well; Removal [...] drink first t dino in the morning (EYE-BOTTOM WHEELER) to steady your nerves or to get [...] T2DM, HLD, HTN, RLS who presented to [facility] with a large left common [...] CEA 2016 + 3rd degree AV block WARD SUPERVISOR-P placed 08/2023 for Wenkeback with 11 sec pause + HLD + HTN - controlled + PAD 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 S/P intravascular lithotripsy of left common and external iliac artery with 2 continuous balloon mounted bare metal stents 09/12/24 on Xarelto and ASA + WILHELM occ, low energy for > year - had work-up recently in [place] (will get records) + peripheral edema LLE [...] ENDARTERECTOMY N/A 2017 Endarterectomy Carotid Artery from [facility] CORONARY ANGIOPLASTY Left Coronary Angiography With Concomitant Left Heart Catheterization from [facility] CORONARY ARTERY BYPASS GRAFT N/A 2018 3V ELBOW SURGERY Right OTHER SURGICAL HISTORY N/A Reported Prior Surgical / Procedural History from [facility] [5] No Known Allergies [6] Current Outpatient [...] card, photo ID, along with power of manpower development specialist, guardianship or advanced directives if applicable Do [...] Description 12/13/2024 2:00 PM EDT Office Visit [facility] [address] [facility] [place] [address] Oscar Appiah MD [address] [facility] [address] [place] [address] 12/19/2024 7:[address] [facility] Lab [address] 5th Floor [address] [place] [address] 12/19/2024 8:[address] [facility] [address] 5th Floor [address] [place] [address] 12/19/2024 9:00 AM EDT Office Visit [facility] [address] [place] [address] Nathaly Nowak MD [address] [place] [address] documented as of this encounter Goals Goal [...] Modality Other Narrative 10/17/2024 9:50 AM EDT [facility]: Pre-operative CIED Report Assessment and Sara-Procedural Reommendations: Name: Mono Bobby Date: 10/17/2024 : 1960 Age: 64 y.o. Patient has a Bank Note Designer: Berger WARD SUPERVISOR-PM Remaining battery longevity adequate. Lead integrity test [...] recommendations. Supporting reports can be found in [employer] media file. us Emelina DOSHI CV IMPLANTABLE [...] documented as of this encounter Care Teams Feather Baler Relationship Specialty Start Date End Date Asad Victor MD [address] [place] [address] PCP - General 10/07/22 documented as of this encounter
--- OUTSIDE RECORDS SUMMARY | 2024-10-16 14:45 | XMS_ITS | Encounter Summary ---
Author Organization Healthcare Address [address] [place] [address] Care Team Providers Care Bridge Tender Name Role Phone Asad Victor MD Primary Care Provider + [phone] Encounter Details Date Type Department Care Team (Latest Contact Info) Description 10/16/2024 2:45 PM EDT - 10/16/2024 11:59 PM EDT Hospital Encounter Cardiac Imaging [address] [place] [address] Discharge Disposition: Home or Self Care Social [...] drink first t dino in the morning (EYE-ASBESTOS SHINGLE INSPECTOR) to steady your nerves or to [...] Description 12/13/2024 2:00 PM EDT [facility] [address] [place] [address] Oscar Appiah MD [facility] 100 [place] [address] 12/19/2024 7:30 AM EDT Appointment [facility] [address] [place] [address] 12/19/2024 8:00 AM EDT Appointment [facility] [address] [place] [address] 12/19/2024 9:00 AM EDT Office Visit [facility] [address] [place] [address] Nathaly Nowak MD [address] [facility] [address] [place] [address] documented as of this encounter Goals Goal [...] Modality Other Narrative 10/17/2024 9:50 AM EDT [facility]: Pre-operative CIED Report Assessment and Sara-Procedural Reommendations: Name: Mono Bobby Date: 10/17/2024 : 1960 Age: 64 y.o. Patient has a Take Up Supervisor: Berger FELTING MACHINE OPERATOR HELPER-PM Remaining battery longevity adequate. Lead integrity test [...] recommendations. Supporting reports can be found in [employer] media file. 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
--- OUTSIDE RECORDS SUMMARY | 2024-10-17 06:21 | XMS_ITS | Encounter Summary ---
Author Organization [facility] Address [address] [id number] Care Team Providers Care Learning Design Specialist Name Role Phone Asad Victor MD Primary Care Provider [phone] Reason for Referral * Imaging (Routine) - Authorized Specialty Diagnoses / Procedures Referred By Susan t Referred To Contact Cardiology Diagnoses Critical limb ischemia of left lower extremity Pseudoaneurysm of left femoral artery (CMS/HCC) Procedures VAS US Arterial Duplex Lower Extremity Unilateral Left Terrell Gautam MD [address] [address] Phone: tel: fax: Referral ID Status Reason Start Date Expiration Date Visits Requested Visits Authorized [id number] Authorized Perform Procedure 10/19/2024 04/20/2026 1 1 * Imaging (Routine) - Authorized Specialty Diagnoses / Procedures Referred By Contac t Referred To Contact Cardiology Diagnoses Critical limb ischemia of left lower extremity Pseudoaneurysm of left femoral artery (CMS/HCC) Procedures VAS Ankle Brachial Index - Segmental Terrell Gautam MD [id number] [place] [address] Phone: tel: fax: Referral ID Status Reason Start Date Expiration Date Visits Requested Visits Authorized [id number] Authorized Perform Procedure 10/19/2024 04/20/2026 1 1 * Consultation (Routine) - Authorized Specialty Diagnoses / Procedures Referred By Contact Referred To Contact Vascular Surgery / [facility] Diagnoses Critical limb ischemia of left lower extremity Pseudoaneurysm of left femoral artery (CMS/HCC) Terrell Gautam MD [address] [place] [address] Phone: tel:[phone] fax:[phone] [facility] [address] [place] [address] 5th Floor [address] [place] [address] Phone: tel: fax: Referral ID Status Reason Start Date Expiration Date Visits Requested Visits Authorized [id number] Authorized Specialty Services Required 10/19/2024 04/20/2026 [address] Gautam, with SIL, arterial duplex Reason for Visit * Auth/Cert (Routine) Specialty Diagnoses / Procedures Referred By Susan t Referred To Contact Diagnoses Critical limb ischemia of left lower extremity Critical limb ischemia of left lower extremity [I70.222] Procedures DC VEIN BYPASS GRAFT,FEM-POP CREATION, BYPASS, ARTERIAL, FEMORAL TO POPLITEAL Terrell Gautam MD [address] [place] [address] Phone: tel: fax: [facility] A OPERATING ROOM [address] [place] [address] Phone: tel: Referral ID Status Reason Start Date Expiration Date Visits Re quested Visits Authorized [id number] 1 1 Encounter Details Date Type Department Care Team (Latest Contact Info) Description 10/17/2024 6:21 AM EDT - 10/19/2024 12:39 PM EDT Hospital Encounter [facility] H Inpatient [address] [place] [phone] Terrell Gautam MD [address] [place] [address] Pseudoaneurysm of left femoral artery (CMS/HCC) [...] any time in the past 12 m [facility], were you homeless or living in a longterm (including now)? 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 0 10/18/2021 CAGE Questionnaire Score 0 022 Utilities Answer Date Recorded In the past 12 months has th [employer], gas, oil, or water Sample6 threatened to shut off services in your [...] provided Taken 10/17/20242107 by Jourdan Grimes II nail tech Review/Management: medications reviewed Problem: Skin Injury [...] Goal: Anesthesia/Sedation Recovery 10/19/2024 1145 by Keyla Cohw Outcome: Met [...] Ongoing, Progressing Intervention: Promote Activity and Functional [place] Flowsheets (Taken 10/19/2024 1048) Self-Care Promotion: BADL personal objects within reach meal set-up provided * Yuni Ramires - Keyla Chow - 10/19/2024 11:45 AM EDT Images from the original note were not included. [id number] After Peripheral Artery Bypass Surgery: In the [...] home. Last Reviewed Date: 2023 00:00:00 ?? [id number] [employer]. All rights reserved. This information is not intended as a substitute for professional medical care. Always follow your healthcare professional's instructions. * Progress Notes - Emelina Friend - 10/19/2024 11:44 AM EDT Case Management Adult Progress Note Bev Bobby 64 y.o. male CSN: [id number] Admission: 10/17/2024 6:21 AM Primary Problem: Critical [...] if any other needs arise. Emelina Friend CREDIT COLLECTION SPECIALIST, STATIONARY ENGINEER REFRIGERATION Social Work Case Management * Yuni OviJOSE MANUEL Chow Keyla - 10/19/2024 11:44 AM EDT Images from the original note were not included. [id number] Peripheral Artery Disease (PAD) Peripheral artery disease [...] cause. Last Reviewed Date: 2024 00:00:00 ?? [id number] [employer]. All rights reserved. This information is not intended as a substitute for professional medical care. Always follow your healthcare professional's instructions. * Yuni DiorNAVYA - Keyla Chow - 10/19/2024 11:44 AM EDT Images from the original note were not included. [id number] Leg Artery Emergencies: Critical Limb Ischemia (CLI) [...] appointments. Last Reviewed Date: 2023 00:00:00 ?? [id number] [employer]. All rights reserved. This information is not intended as a substitute for professional medical care. Always follow your healthcare professional's instructions. * Discharge Summary - Dandy Baltazar MD - 10/19/2024 11:31 AM EDT Hospitalization Admit Date/Time: 10/17/2024 6:21 AM Admitting Attending: Terrell Gautam Discharge Date: 10/19/24 Discharge Attending Physician: Nirmal Cueto MD PCP name and Address: Asad Victor MD (Inactive) [address] [place] [address] / [facility] [place] [address] Referring provider name and address: Timothy Marques PA [address] [place] [address] Chief Concern, Brief History of Present Illness, and Hospital Course Bev Bobby is an 64 y.o. 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 He [...] Your Medications These medications were sent to [facility] - [place], [place] - [address], [facility] [address] acetaminophen 500 MG tablet clopidogrel 75 MG [...] of water. 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 He [...] provided Taken 10/17/20242107 by Jourdan Grimes II, nail tech Review/Management: medications reviewed Problem: Skin Injury [...] Ongoing, Progressing Intervention: Promote Activity and Functional Bun[place] Flowsheets (Taken 10/19/2024 1048) Self-Care Promotion: BADL [...] evaluation. PARTICIPANTS IN CARE Visitors Present No Textile Science Technician (if applicable) PRESENTATION Oxygen Oxygen Therapy: None [...] Level of Mobility Ambulatory- household only Mobility B[place] Independent gait with device (rollator) History of [...] numbness in rodney) BED MOBILITY Level of [place] Physical/Non- physical Assist Adaptive Equipment Utilized Rolling/ Turning Scooting/ Bridging Modified independence (anteriorly to EOB) Bed rails Supine to Sit Modified [place] (to the right) (HOB flat) Bed rails Sit to Supine Interventions HOB flat to simulate home environment TRANSFERS Level of [place] Physical/Non- physical Assist Adaptive Equipment Utilized Sit [...] stable surfaces during transitions. AMBULATION Level of B[place] Distance Adaptive Equipment Utilized Ambulation Standby assist, [...] Posture: Forward head, Rounded shoulders Level of Bun[place] Balance Support Interventions Static Sit Independent Right [...] evaluation/session. Participants in Care Family/Caregiver Present: No Textile Science Technician: Not Applicable Presentation Oxygen Therapy: None (Room [...] Level of Mobility: Ambulatory- household only Mobility Bunola: Independent gait with device (rollator) History of [...] Mobility Bed Mobility Exam: Scooting/Bridging Level of Bunola: Modified independence (anteriorly to EOB) Assistive Device: Bed rails Bed Mobility Exam: Supine to Sit Level of Bunola: Modified [place] (to the right) Physical/Nonphysical Assist: (HOB flat) Assistive Device: Bed rails Transfers Transfer Exam: Sit to stand Level of Bunola: Stand-by assist Physical/Nonphysical Assist: Supervision, Verbal Cues, Minimal cues Assistive Device: Walker, rolling Transfer Exam: Stand to Sit Level of Bunola: Stand-by assist Physical/Nonphysical Assist: Supervision, Verbal Cues, [...] regarding toileting at this time. Standardized Assessments [facility] 6-Click Daily Activities Help from Other: Don/Doff Regular Lower Body Clothings: None Help From Other: Bathing: Little Help From Other: Toileting: None Help From Other: Don/Doff Upper Body Clothings: None Help From Other: Grooming: None Help From Other: Eating Meals: None [facility] 6 Click - Daily Activities Score: [...] Note Bev Bobby 64 y.o. male CSN: [id number] Admission: 10/17/2024 6:21 AM Primary Problem: Critical limb ischemia of left lower extremity Qc Tech reviewed chart and spoke with patient to complete this Initial Case Management Assessment. PCP: Asad Victor MD (Inactive) - Dr. Palomo Preferred pharmacy is [facility] Emergency Contact: Extended Emergency Contact Information Primary Emergency Contact: Patti Hill Relation: Sister Textile Science Technician needed? No Insurance: Primary Visit Coverage Payer Plan Sponsor Code Group Number Group Name [facility] MEDICARE [facility] MEDICARE REPLACEMENT [id number] Primary Visit Coverage Subscriber Subscriber ID Subscriber Name Subscriber N Subscriber Address [id number] BEV BOBBY [id number] [place] [address] Secondary Visit Coverage Payer Plan Sponsor Code Group Number Group Name [facility] Secondary Visit Coverage Subscriber Subscriber ID Subscriber Name Subscriber N Subscriber Address [id number] BEV BOBBY [id number] [place] [address] Patient information: Primary Caregiver: Self Daily Living Activities: Functional Status: Independent Living Arrangements: Alone Type of Residence: Private residence, Single Level [address] [place] [address] Current DME: Equipment Currently Used at Home: walker, rollator Income Information: Income Source: Retired Income/Expense Information: Income meets expenses Current Resources Utilized: Food [place] Housing Circumstances-Z Codes: Housing Circumstances (select all [...] Dialysis Services: None. Living Will/Advance Directive/Power of Piano Player /Guardian: Denied. Additional Comments: Patient is not medically ready for discharge. SW will continue to follow. Mariia Macedo STATIONARY ENGINEER REFRIGERATION * Care Plan - Emilia Alonso RN [...] from the original note were not included. [facility] Department of Surgery Division of Vascular [...] with above assessment and evaluation from resident/TELEPHONE SURVEYOR. * Op Note - Terrell Gautam MD - 10/17/2024 8:52 AM EDT Operative Note Date: 10/17/24 Location: [facility] Name: Bev Bobby, : 1960, Diagnoses: Pre-op Diagnosis Critical limb ischemia of left lower extremity Common femoral artery pseudoaneurysm Post-op Diagnosis Critical limb ischemia of left lower extremity Common femoral artery pseudoaneurysm Procedure(s): Left common/superficial/profunda femoral thromboendarterectomy with bovine patch repair Left external iliac artery/METAL ENGRAVER stent Attending Surgeon(s): * Terrell Gautam - Primary Drafter Electronic(s): * Luna Beckett MD - Resident - [...] Necessity Reasons Recent surgery contiguous with urinary tract/CLINICAL PATHOLOGIST/colorectal 10/17/24 190 Output (mL) 50 mL 10/18/24 08 Implants Type Name Action Serial No. VASCUGUARD 8 X 8 - [id number] Implanted STENT ENDOPROSTHESIS VIABAHN 9FR [id number] - [id number] Implanted [id number] Specimen: Specimens ID Source Frozen? 1 Other [...] and distal control. We then proceeded with ouxip-joc-dorv exposure of the popliteal artery. A medial [...] balloon dilated thestent with a 9 mm [place]. We closed the arteriotomy with a single [...] 10/17/2024 8:52 AM EDT Date: 10/17/24 Location: [facility] Name: Bev Perez Kanu, : 1960, Diagnoses: Pre-op Diagnosis Critical limb ischemia of left lower extremity Common femoral artery pseudoaneurysm Post-op Diagnosis Critical limb ischemia of left lower extremity Common femoral artery pseudoaneurysm Procedure(s): Left common/superficial/profunda femoral thromboendarterectomy with bovine patch repair Left external iliac artery/METAL ENGRAVER stent Attending Surgeon(s): * Terrell Gautam - Primary Drafter Electronic(s): * Luna Beckett MD - Resident - Assisting * Dandy Baltazar MD - Fellow Anesthesia: General ASA: III Blood Administration: Blood Product Administration History None Estimated Blood Loss: 300 mL Drains: Urethral Catheter Temperature probe 16 Fr. (Active) Implants Type Name Action Serial No. VASCUGUARD 8 X 8 - [id number] Implanted STENT ENDOPROSTHESIS VIABAHN 9FR [id number] - [id number] Implanted [id number] Specimen: Specimens ID Source Frozen? 1 Other [...] issues. 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 He previouslyunderwent thrombin injection. He reports pain in his calves. He presents today for scheduled left lower extremity femoral to fsymk-ypq-idls popliteal bypass. Planned likely use PTFE. He [...] 16. Results Review {Vanishing Link Review Results :[id number] I have reviewed the latest lab and imaging results. Assessment & Plan Critical limb ischemia of left lower extremity Proceed with scheduled surgery left lower extremity femoral to pzmxk-bqx-vnkh popliteal artery bypass graft. Extensive discussion had [...] Description 12/13/2024 2:00 PM EDT Office Visit [facility] [address] [place] [address] Oscar Appiah MD [address] [facility] [address] [place] [address] 12/19/2024 7:30 AM EDT Appointment [facility] [address] [facility] 5th Floor [address] [place] [address] 12/19/2024 8:00 AM EDT Appointment [facility] [address] [place] [address] 12/19/2024 9:00 AM EDT Office Visit [facility] [address] [place] [address] Nathaly Nowak MD [address] [place] [address] Pending Results Name Type Priority [...] PREPARE RBC STAT 10/17/2024 8:06 AM EDT DC VEIN BYPASS GRAFT,FEM-POP 10/17/2024 7:38 AM EDT [...] Comment 10/19/2024 11:42 AM EDT HEALTHCARE LAB Supervisor Tower ID KamranJob 10/20/19 11:42 AM EDT [facility] Device ID [id number] 10/19/2024 11:[address] [facility] Specimen Type POC Capillary 10/19/2024 11:[address] [facility] Blood Capillary blood specimen / Unknown 10/19/2024 11:40 AM EDT 10/19/2024 11:42 AM EDT us Terrell Gautam MD LAB POINT OF CARE TE ST DOCKED DEVICE UNSOLICITED RESULTS Final Result Performing Organization Address City/State/[facility] Co de Phone Number HEALTHCARE LAB [address] [place] [phone] * (ABNORMAL) Protime-INR (10/19/2024 8:25 AM EDT) Prothrombin Time 17.5(H) 12.0 - 14.3 sec LAB COAGULATION METHOD 10/19/2024 9:25 AM EDT [facility] INR 1.4(H) 0.9 - 1.1 LAB COAGULATION METHOD 10/19/2024 9:25 AM EDT [facility] Blood Venous blood specimen / Unknown Venipuncture / Unknown 10/19/2024 8:25 AM EDT 10/19/2024 8:43 AM EDT Narrative [facility] - 10/19/2024 9:25 AM EDT OPTIMAL INR RANGES FOR PATIENT ON ORAL ANTICOAGULANT THERAPY Prevention of venous thromboembolism INR 2.0 to 3.0 In patients with heart disease: Atrial fibrillation INR 2.0 to 3.0 Valvular heart disease INR 2.0 to 3.0 Tissue heart valves INR 2.0 to 3.0 Mechanical prosthetic valves INR 2.5 to 3.5 Prevention of recurrent IL INR 2.5 to 3.5 Nirmal Cueto MD LAB BLOOD ORDERABLES Final Result Performing Organization Address City/[facility]/ZIP Co de Phone Number [facility] [address] [place] [address] * (ABNORMAL) Phosphorus (10/19/2024 8:25 AM EDT) Phosphorus, Plasma 2.2(L) 2.5 - 4.5 mg/dL 10/19/2024 9:12 AM EDT [facility] Blood Venous blood specimen / Unknown Venipuncture / Unknown 10/19/2024 8:25 AM EDT 10/19/2024 8:43 AM EDT Nirmal Cueto MD LAB BLOOD ORDERABLES Final Result Performing Organization Address City/[facility]/ZIP Co de Phone Number [facility] [address] [place] [address] * Magnesium (10/19/2024 8:25 AM EDT) Magnesium, Plasma 2.1 1.9 - 2.4 mg/dL 10/19/2024 9:12 AM EDT [facility] Blood Venous blood specimen / Unknown Venipuncture / Unknown 10/19/2024 8:25 AM EDT 10/19/2024 8:43 AM EDT Nirmal Cueto MD LAB BLOOD ORDERABLES Final Result Performing Organization Address City/[facility]/ZIP Co de Phone Number [facility] [address] [place] [address] * (ABNORMAL) Basic metabolic panel (10/19/2024 8:25 AM EDT) Glucose, Plasma 191(H) 74 - 99 mg/dL 10/19/2024 9:12 AM EDT [facility] BUN, Plasma 18 8 - 23 mg/dL 10/19/2024 9:12 AM EDT [facility] Creatinine, Plasma 0.76 0.70 - 1.20 mg/dL 10/19/2024 9:12 AM EDT [facility] BUN/Creatinine Ratio 24 10/19/2024 9:12 AM EDT [facility] Sodium, Plasma 135(L) 136 - 145 mmol/L 10/19/2024 9:12 AM EDT [facility] Potassium, Plasma 4.1 3.6 - 4.9 mmol/L 10/19/2024 9:12 AM EDT [facility] Chloride, Plasma 104 97 - 107 mmol/L 10/19/2024 9:12 AM EDT [facility] CO2, Plasma 22 22 - 29 mmol/L 10/19/2024 9:12 AM EDT [facility] Anion Gap 9 6 - 16 mmol/L 10/19/2024 9:12 AM EDT [facility] Total Calcium, Plasma 8.4(L) 8.9 - 10.2 mg/dL 10/19/2024 9:12 AM EDT [facility] eGFRcr 99.7 mL/min/1.7 3m*2 10/19/2024 9:12 AM EDT [facility] Comment:Reported eGFRcr in m L/min/1.73m2 is based the CKD-EPI 2020 equation that does not use a race coefficient. Blood Venous blood specimen / Unknown Venipuncture / Unknown 10/19/2024 8:25 AM EDT 10/19/2024 8:43 AM EDT us Nirmal Cueto MD LAB BLOOD ORDERABLES Final Result [facility] [address] [place] [address] * (ABNORMAL) CBC W/O Differential (10/19/2024 8:25 AM EDT) WBC Count 14.10(H) 3.70 - 10.30 10*3/uL LAB HEMATOLOGY METHOD 10/19/2024 8:52 AM EDT [facility] RBC Count 2.61(L) 4.60 - 6.10 10*6/uL LAB HEMATOLOGY METHOD 10/19/2024 8:52 AM EDT [facility] HGB 8.0(L) 13.7 - 17.5 g/dL LAB HEMATOLOGY METHOD 10/19/2024 8:52 AM EDT [facility] HCT 24.3(L) 40.0 - 51.0 % LAB HEMATOLOGY METHOD 10/19/2024 8:52 AM EDT [facility] Platelet Count 318 155 - 369 10*3/uL LAB HEMATOLOGY METHOD 10/19/2024 8:52 AM EDT [facility] MCV 93 79 - 98 fL LAB HEMATOLOGY METHOD 10/19/2024 8:52 AM EDT [facility] MCH 30.7 26.0 - 32.0 pg LAB HEMATOLOGY METHOD 10/19/2024 8:52 AM EDT [facility] MCHC 32.9 30.7 - 35.5 g/dL LAB HEMATOLOGY METHOD 10/19/2024 8:52 AM EDT [facility] RDW 13.4 11.5 - 14.5 % LAB HEMATOLOGY METHOD 10/19/2024 8:52 AM EDT [facility] MPV 9.6 8.8 - 12.5 fL LAB HEMATOLOGY METHOD 10/19/2024 8:52 AM EDT [facility] nRBC 0.0 <=0.0 per 100 WBCs LAB HEMATOLOGY METHOD 10/19/2024 8:52 AM EDT [facility] Blood Venous blood specimen / Unknown Venipuncture / Unknown 10/19/2024 8:25 AM EDT 10/19/2024 8:44 AM EDT us Nirmal Cueto MD LAB BLOOD ORDERABLES Final Result [facility] [address] [place] [address] * (ABNORMAL) POCT glucose meter (10/19/2024 7:35 [...] Comment 10/19/2024 7:37 AM EDT HEALTHCARE LAB Supervisor Tower ID Job Andrew 10/20/19 7:37 AM EDT HEALTHCARE LAB Device ID [id number] 10/19/2024 7:37 AM EDT [facility]ARE LAB Specimen Type POC Capillary 10/19/2024 7:37 AM EDT [facility] Blood Capillary blood specimen / Unknown 10/19/2024 7:35 AM EDT 10/19/2024 7:37 AM EDT us Terrell Gautam MD LAB POINT OF CARE TE ST DOCKED DEVICE UNSOLICITED RESULTS Final Result Performing Organization Address City/State/[facility] Co de Phone Number [facility] [address] [place] [address] * (ABNORMAL) POCT glucose meter (10/18/2024 7:22 PM EDT) [facility] POCT Glucose 178(H) 74 - 99 [...] 10/18/2024 7:24 PM EDT [facility] Supervisor Tower ID Mahesh Aldana 10/18/2024 7:24 PM EDT [facility] Device ID [id number] 10/18/2024 7:24 PM EDT [facility]ALTH[facility]ARE LAB Specimen Type POC Capillary 10/18/2024 7:[address] [facility] Blood Capillary blood specimen / Unknown 10/18/2024 7:22 PM EDT 10/18/2024 7:24 PM EDT Terrell Gautam MD LAB POINT OF CARE TE ST DOCKED DEVICE UNSOLICITED RESULTS Final Result Performing Organization Address City/[facility]/ZIP Co de Phone Number [facility]ALTHCARE LAB [address] [place] [address] * (ABNORMAL) POCT glucose meter (10/18/2024 6:07 [...] Comment 10/18/2024 6:09 PM EDT HEALTHCARE LAB Supervisor Tower ID David Parks 10/18/2024 6:[address] [facility] Device ID [id number] 10/18/2024 6:[address] [facility] Specimen Type POC Capillary 10/18/2024 6:[address] [facility] Blood Capillary blood specimen / Unknown 10/18/2024 6:07 PM EDT 10/18/2024 6:09 PM EDT us Terrell Gautam MD LAB POINT OF CARE TE ST DOCKED DEVICE UNSOLICITED RESULTS Final Result [facility] [address] [place] [address] * (ABNORMAL) POCT glucose meter (10/18/2024 11:56 [...] Comment 10/21/2024 7:42 AM EDT HEALTHCARE LAB Supervisor Tower ID Venessa Marcano 10/21/2024 7:42 AM EDT HEALTHCARE LAB Device ID [id number] 10/21/2024 7:42 AM EDT [facility]ALTH[facility]ARE LAB Specimen Type POC Capillary 10/21/2024 7:42 AM EDT [facility]ALTH[facility]ARE LAB Blood Capillary blood specimen / Unknown 10/18/2024 11:56 AM EDT 10/21/2024 7:42 AM EDT us Terrell Gautam MD LAB POINT OF CARE TE ST DOCKED DEVICE UNSOLICITED RESULTS Final Result Performing Organization Address City/State/[facility] de Phone Number HEALTH[facility]ARE LAB [address] [place] [address] * (ABNORMAL) POCT glucose meter (10/18/2024 9:24 [...] Comment 10/21/2024 7:42 AM EDT HEALTHCARE LAB Supervisor Tower ID Emilia Alonso 7:42 AM EDT HEALTH[facility]ARE LAB Device ID [id number] 10/21/2024 7:42 AM EDT HEALTH[facility]ARE LAB Specimen Type POC Venous 10/21/2024 7:42 AM EDT [facility] Blood Venous blood specimen / Unknown 10/18/2024 9:24 AM EDT 10/21/2024 7:42 AM EDT us Terrell Gautam MD LAB POINT OF CARE TE ST DOCKED DEVICE UNSOLICITED RESULTS Final Result [facility] [address] [place] [address] * (ABNORMAL) POCT glucose meter (10/18/2024 7:36 AM EDT) [facility] POCT Glucose 215(H) 74 - 99 [...] for testing. Comment 10/18/2024 7:38 AM EDT [facility] Supervisor Tower ID Kizzy Godfrey 025 7:38 AM EDT HEALTHCARE LAB Device ID [id number] 10/18/2024 7:[address] [facility] Specimen Type POC Capillary 10/18/2024 7:[address] [facility] Blood Capillary blood specimen / Unknown 10/18/2024 7:36 AM EDT 10/18/2024 7:38 AM EDT Terrell Gautam MD LAB POINT OF CARE TE ST DOCKED DEVICE UNSOLICITED RESULTS Final Result [facility] [address] [place] [address] * (ABNORMAL) CBC (10/18/2024 2:09 AM EDT) [facility] WBC Count 16.71(H) 3.70 - 10.30 10*3/uL LAB HEMATOLOGY METHOD 10/18/2024 2:33 AM EDT [facility] RBC Count 2.78(L) 4.60 - 6.10 10*6/uL LAB HEMATOLOGY METHOD 10/18/2024 2:33 AM EDT [facility] HGB 8.5(L) 13.7 - 17.5 g/dL LAB HEMATOLOGY METHOD 10/18/2024 2:33 AM EDT [facility] HCT 25.7(L) 40.0 - 51.0 % LAB HEMATOLOGY METHOD 10/18/2024 2:33 AM EDT [facility] Platelet Count 324 155 - 369 10*3/uL LAB HEMATOLOGY METHOD 10/18/2024 2:33 AM EDT [facility] MCV 92 79 - 98 fL LAB HEMATOLOGY METHOD 10/18/2024 2:33 AM EDT [facility] MCH 30.6 26.0 - 32.0 pg LAB HEMATOLOGY METHOD 10/18/2024 2:33 AM EDT [facility] MCHC 33.1 30.7 - 35.5 g/dL LAB HEMATOLOGY METHOD 10/18/2024 2:33 AM EDT [facility] RDW 13.3 11.5 - 14.5 % LAB HEMATOLOGY METHOD 10/18/2024 2:33 AM EDT [facility] MPV 9.4 8.8 - 12.5 fL LAB HEMATOLOGY METHOD 10/18/2024 2:33 AM EDT [facility] nRBC 0.0 <=0.0 per 100 WBCs LAB HEMATOLOGY METHOD 10/18/2024 2:33 AM EDT [facility] Blood Venous blood specimen / Unknown Venipuncture / Unknown 10/18/2024 2:09 AM EDT 10/18/2024 2:25 AM EDT Nirmal Cueto MD LAB BLOOD ORDERABLES Final Result [facility] [address] [place] [address] * (ABNORMAL) Basic metabolic panel (10/18/2024 2:09 AM EDT) Pathologist [facility] [place] Glucose, Plasma 206(H) 74 - 99 mg/dL 10/18/2024 2:53 AM EDT [facility] BUN, Plasma 24(H) 8 - 23 mg/dL 10/18/2024 2:53 AM EDT [facility] Creatinine, Plasma 1.17 0.70 - 1.20 mg/dL 10/18/2024 2:53 AM EDT [facility] BUN/Creatinine Ratio 21 10/18/2024 2:53 AM EDT [facility] Sodium, Plasma 136 136 - 145 mmol/L 10/18/2024 2:53 AM EDT [facility] Potassium, Plasma 4.8 3.6 - 4.9 mmol/L 10/18/2024 2:53 AM EDT [facility] Chloride, Plasma 104 97 - 107 mmol/L 10/18/2024 2:53 AM EDT [facility] CO2, Plasma 22 22 - 29 mmol/L 10/18/2024 2:53 AM EDT [facility] Anion Gap 10 6 - 16 mmol/L 10/18/2024 2:53 AM EDT [facility] Total Calcium, Plasma 8.5(L) 8.9 - 10.2 mg/dL 10/18/2024 2:53 AM EDT [facility] eGFRcr 69.2 mL/min/1.7 3m*2 10/18/2024 2:53 AM EDT [facility] Comment:Reported eGFRcr in m L/min/1.73m2 is based the CKD-EPI 2020 equation that does not use a race coefficient. Blood Venous blood specimen / Unknown Venipuncture / Unknown 10/18/2024 2:09 AM EDT 10/18/2024 2:25 AM EDT Nirmal Cueto MD LAB BLOOD ORDERABLES Final Result [facility] [address] [place] [address] * (ABNORMAL) Magnesium (10/18/2024 2:09 AM EDT) Magnesium, Plasma 1.8(L) 1.9 - 2.4 mg/dL 10/18/2024 2:53 AM EDT [facility] Blood Venous blood specimen / Unknown Venipuncture / Unknown 10/18/2024 2:09 AM EDT 10/18/2024 2:25 AM EDT Nirmal Cueto MD LAB BLOOD ORDERABLES Final Result [facility] [address] [place] [address] * Phosphorus (10/18/2024 2:09 AM EDT) Phosphorus, Plasma 3.7 2.5 - 4.5 mg/dL 10/18/2024 2:53 AM EDT [facility] Blood Venous blood specimen / Unknown Venipuncture / Unknown 10/18/2024 2:09 AM EDT 10/18/2024 2:25 AM EDT iNrmal Cueto MD LAB BLOOD ORDERABLES Final Result Performing Organization Address City/[facility]/ZIP Co de Phone Number [facility] [address] [place] [address] * (ABNORMAL) Protime-INR (10/18/2024 2:09 AM EDT) Prothrombin Time 14.5(H) 12.0 - 14.3 sec LAB COAGULATION METHOD 10/18/2024 2:53 AM EDT [facility] INR 1.1 0.9 - 1.1 LAB COAGULATION METHOD 10/18/2024 2:53 AM EDT [facility] Blood Venous blood specimen / Unknown Venipuncture / Unknown 10/18/2024 2:09 AM EDT 10/18/2024 2:25 AM EDT Narrative [facility] - 10/18/2024 2:53 AM EDT OPTIMAL INR RANGES FOR PATIENT ON ORAL ANTICOAGULANT THERAPY Prevention of venous thromboembolism INR 2.0 to 3.0 In patients with heart disease: Atrial fibrillation INR 2.0 to 3.0 Valvular heart disease INR 2.0 to 3.0 Tissue heart valves INR 2.0 to 3.0 Mechanical prosthetic valves INR 2.5 to 3.5 Prevention of recurrent [place] INR 2.5 to 3.5 us Nirmal Cueto MD LAB BLOOD ORDERABLES Final Result Performing Organization Address City/[facility]/ZIP Co de Phone Number [facility] [address] [place] [address] * (ABNORMAL) POCT glucose meter (10/18/2024 2:08 AM EDT) [facility] POCT Glucose 202(H) 74 - 99 [...] Comment 10/18/2024 2:10 AM EDT [facility] Supervisor Tower ID Jourdan Grimes II 10/18/2024 2:10 AM EDT [facility] LAB Device ID [id number] 10/18/2024 2:10 AM EDT [facility] Specimen Type POC Capillary 10/18/2024 2:10 AM EDT [facility] Blood Capillary blood specimen / Unknown 10/18/2024 2:08 AM EDT 10/18/2024 2:10 AM EDT us Terrell Gautam MD LAB POINT OF CARE TE ST DOCKED DEVICE UNSOLICITED RESULTS Final Result Performing Organization Address City/State/[facility] Co de Phone Number [facility] [address] [place] [address] * (ABNORMAL) POCT glucose meter (10/17/2024 10:07 PM EDT) [facility] POCT Glucose 300(H) 74 - 99 [...] Comment 10/17/2024 10:10 PM EDT [facility] Supervisor Tower ID Jourdan Grimes II 10/17/2024 10:10 PM EDT [facility] LAB Device ID [id number] 10/17/2024 10:10 PM EDT [facility] Specimen Type POC Capillary 10/17/2024 10:10 PM EDT [facility] Blood Capillary blood specimen / Unknown 10/17/2024 10:07 PM EDT 10/17/2024 10:10 PM EDT Terrell Gautam MD LAB POINT OF CARE TE ST DOCKED DEVICE UNSOLICITED RESULTS Final Result Performing Organization Address City/[facility] de Phone Number [facility] [address] [place] [address] * (ABNORMAL) POCT glucose meter (10/17/2024 8:07 [...] Comment 10/17/2024 8:10 PM EDT [facility] Supervisor Tower ID Jourdan Grimes II 10/17/2024 8:10 PM EDT [facility] LAB Device ID [id number] 10/17/2024 8:10 PM EDT [facility] Specimen Type POC Capillary 10/17/2024 8:[address] [facility] Blood Capillary blood specimen / Unknown 10/17/2024 8:07 PM EDT 10/17/2024 8:10 PM EDT Terrell Gautam MD LAB POINT OF CARE TE ST DOCKED DEVICE UNSOLICITED RESULTS Final Result Performing Organization Address City/[facility]/ZIP Co de Phone Number [facility] [address] [place] [address] * (ABNORMAL) POCT glucose meter (10/17/2024 4:01 [...] Comment 10/17/2024 4:03 PM EDT [facility] Supervisor Tower ID Keisha Waller 10/17/2024 4:03 PM EDT [facility] LAB Device ID [id number] 10/17/2024 4:03 PM EDT [facility] Specimen Type POC Capillary 10/17/2024 4:03 PM EDT [facility] Blood Capillary blood specimen / Unknown 10/17/2024 4:01 PM EDT 10/17/2024 4:03 PM EDT us Terrell Gautam MD LAB POINT OF CARE TE ST DOCKED DEVICE UNSOLICITED RESULTS Final Result Performing Organization Address City/State/[facility] Co de Phone Number [facility] [address] [place] [address] * (ABNORMAL) POCT glucose meter (10/17/2024 1:25 PM EDT) [facility] POCT Glucose 225(H) 74 - 99 [...] 10/17/2024 1:27 PM EDT [facility] Supervisor Tower ID Kizzy Godfrey 025 1:27 PM EDT [facility] LAB Device ID [id number] 10/17/2024 1:27 PM EDT [facility] Specimen Type POC Capillary 10/17/2024 1:27 PM EDT [facility] Blood Capillary blood specimen / Unknown 10/17/2024 1:25 PM EDT 10/17/2024 1:27 PM EDT us Terrell Gautam MD LAB POINT OF CARE TE ST DOCKED DEVICE UNSOLICITED RESULTS Final Result Performing Organization Address City/[facility]/ZIP Co de Phone Number [facility] [address] [place] [address] * [place] Less than 1 Hour Intraoperative (10/17/2024 1:18 PM EDT) Narrative IMAGING - 10/17/2024 2:05 PM EDT Images were obtained for surgical purposes. See Terrell Gautam's surgical note in the patient's chart for the findings. Terrell Gautam MD IMG FLUOROSCOPY PROCEDURES Fi nal Result Performing Organization Address [facility] Co de Phone Number IMAGING * POCT ACT (10/17/2024 12:23 PM EDT) ACT+ (HIGH RANGE) 211 68 - 600 Seconds 10/29/2024 7:28 AM EDT [facility] Supervisor Tower ID Donna Mcmillan 10/29/2024 7:28 AM EDT [facility] ACT Device ID [id number] 10/29/2024 7:28 AM EDT [facility] Comment 10/29/2024 7:28 AM EDT [facility] Comment: ACT performed by staff [...] UNSOLICITED RESULTS Final Result Performing Organization Address [facility] Co de Phone Number [facility] [address] [place], [place] [id number] [place] [address] LAB [address] [place] [address] * (ABNORMAL) Blood gas, arterial (10/17/2024 11:48 AM EDT) pH, Arterial 7.34 7.31 - 7.42 LAB HEMATOLOGY METHOD 10/17/2024 11:54 AM EDT [facility] pCO2, Arterial 41 32 - 45 mmHg LAB HEMATOLOGY METHOD 10/17/2024 11:54 AM EDT [facility] pO2, Arterial 202 >80 mmHg LAB HEMATOLOGY METHOD 10/17/2024 11:54 AM EDT [facility] SO2, Measured, Arterial 100(H) 94 - 98 % LAB HEMATOLOGY METHOD 10/17/2024 11:54 AM EDT [facility] Base Excess, Arterial -3.2(L) -2.0 - 3.0 mmol/L LAB HEMATOLOGY METHOD 10/17/2024 11:54 AM EDT [facility] Bicarbonate, Calculated, Arterial 22 22 - 26 mmol/L LAB HEMATOLOGY METHOD 10/17/2024 11:54 AM EDT [facility] Hematocrit, Whole Blood 28.6(L) 40.0 - 51.0 % LAB HEMATOLOGY METHOD 10/17/2024 11:54 AM EDT [facility] Sodium, Whole Blood 137 136 - 145 mmol/L LAB HEMATOLOGY METHOD 10/17/2024 11:54 AM EDT [facility] Potassium, Whole Blood 4.5 3.6 - 4.9 mmol/L LAB HEMATOLOGY METHOD 10/17/2024 11:54 AM EDT [facility] Chloride, Whole Blood 112(H) 97 - 107 mmol/L LAB HEMATOLOGY METHOD 10/17/2024 11:54 AM EDT [facility] Glucose, Whole Blood 201(H) 74 - 99 mg/dL LAB HEMATOLOGY METHOD 10/17/2024 11:54 AM EDT [facility] Ionized Calcium, Whole Blood 4.8 4.6 - 5.1 mg/dL LAB HEMATOLOGY METHOD 10/17/2024 11:54 AM EDT [facility] Lactate, Arterial, Whole Blood 2.3(H) 0.5 - 1.6 mmol/L LAB HEMATOLOGY METHOD 10/17/2024 11:54 AM EDT [facility] Blood Arterial blood specimen / Unknown Arterial Puncture / Unknown 10/17/2024 11:48 AM EDT 10/17/2024 11:53 AM EDT us Jenna Lopez CRNA LAB BLOOD ORDERABLES Final Re sult [facility] [address] [place] [address] * POCT ACT (10/17/2024 11:41 AM EDT) ACT+ (HIGH RANGE) 175 68 - 600 Seconds 10/29/2024 7:28 AM EDT [facility] Supervisor Tower ID Oneyda Alicea 10/29/2024 7:28 AM EDT [facility] ACT Device ID [id number] 10/29/2024 7:28 AM EDT [facility] Comment 10/29/2024 7:28 AM EDT [facility] Comment: ACT performed by staff [...] Final Result [facility] [address] LAB [address] [place] [address] * POCT ACT (10/17/2024 11:11 AM EDT) ACT+ (HIGH RANGE) 252 68 - 600 Seconds 10/29/2024 7:28 AM EDT [facility] Supervisor Tower ID Donna Mcmillan 10/29/2024 7:28 AM EDT [facility] ACT Device ID [id number] 10/29/2024 7:28 AM EDT [facility] Comment 10/29/2024 7:28 AM EDT [facility] Comment: ACT performed by staff [...] DEVICE UNSOLICITED RESULTS Final Result [facility] [address] LAB [address] [place] [address] * (ABNORMAL) Blood gas, arterial (10/17/2024 10:46 AM EDT) pH, Arterial 7.35 7.31 - 7.42 LAB HEMATOLOGY METHOD 10/17/2024 10:56 AM EDT [facility] pCO2, Arterial 42 32 - 45 mmHg LAB HEMATOLOGY METHOD 10/17/2024 10:56 AM EDT [facility] pO2, Arterial 161 >80 mmHg LAB HEMATOLOGY METHOD 10/17/2024 10:56 AM EDT [facility] SO2, Measured, Arterial 100(H) 94 - 98 % LAB HEMATOLOGY METHOD 10/17/2024 10:56 AM EDT [facility] Base Excess, Arterial -2.2(L) -2.0 - 3.0 mmol/L LAB HEMATOLOGY METHOD 10/17/2024 10:56 AM EDT [facility] Bicarbonate, Calculated, Arterial 23 22 - 26 mmol/L LAB HEMATOLOGY METHOD 10/17/2024 10:56 AM EDT [facility] Hematocrit, Whole Blood 29.9(L) 40.0 - 51.0 % LAB HEMATOLOGY METHOD 10/17/2024 10:56 AM EDT [facility] Sodium, Whole Blood 138 136 - 145 mmol/L LAB HEMATOLOGY METHOD 10/17/2024 10:56 AM EDT [facility] Potassium, Whole Blood 4.0 3.6 - 4.9 mmol/L LAB HEMATOLOGY METHOD 10/17/2024 10:56 AM EDT [facility] Chloride, Whole Blood 110(H) 97 - 107 mmol/L LAB HEMATOLOGY METHOD 10/17/2024 10:56 AM EDT [facility] Glucose, Whole Blood 174(H) 74 - 99 mg/dL LAB HEMATOLOGY METHOD 10/17/2024 10:56 AM EDT [facility] Ionized Calcium, Whole Blood 5.1 4.6 - 5.1 mg/dL LAB HEMATOLOGY METHOD 10/17/2024 10:56 AM EDT [facility] Lactate, Arterial, Whole Blood 1.4 0.5 - 1.6 mmol/L LAB HEMATOLOGY METHOD 10/17/2024 10:56 AM EDT [facility] Blood Arterial blood specimen / Unknown Arterial Puncture / Unknown 10/17/2024 10:46 AM EDT 10/17/2024 10:54 AM EDT us Jenna Lopez CRNA LAB BLOOD ORDERABLES Final Re sult [facility] [address] [place] [address] * POCT ACT (10/17/2024 10:37 AM EDT) ACT+ (HIGH RANGE) 206 68 - 600 Seconds 10/29/2024 7:[address] [facility] Supervisor Tower ID Donna Mcmillan 10/29/2024 7:[address] [facility] ACT Device ID [id number] 10/29/2024 7:[address] [facility] Comment 10/29/2024 7:28 AM EDT [facility] Comment: ACT performed by staff [...] Final Result [facility] [address] LAB [address] [place] [address] * Surgical Pathology Exam (10/17/2024 10:27 AM EDT) Case Report Surgical Pathology Case: [id number] Authorizing Provider: Terrell Gautam MD Collected: 10/17/2024 1027 Ordering Location: [facility] A OPERATING ROOM Received: 10/17/2024 1325 Pathologist: Haydee Osborne MD Specimen: Other (specify site), left common femoral plaque 10/21/2024 10:16 AM EDT [facility] Final Diagnosis A. LEFT COMMON FEMORAL PLAQUE, EXCISION: - CALCIFIED PLAQUE 10/21/2024 10:16 AM EDT [facility] at 1016 EDT Clinical Information Critical limb ischemia of left lower extremity [I70.222] 10/21/2024 10:16 AM EDT [facility] Gross Description A. LEFT COMMON FEMORAL PLAQUE Received in formalin labeled l eft common femoral plaque , is one aggregate of red-gabriel hard portions of plaque measuring 3.7 x 2.5 x 0.9 cm. The specimen is serially sectioned and public utilities sales representative sections are submitted in cassette A1. Cold Time: <1m Kenia Aceves 10/21/2024 10:16 AM EDT [facility] Note: A resident was involved in the service. I attest I examined the relevant preparations for the specimens and confirmed the diagnosis or interpretation. 10/21/2024 10:16 AM EDT [facility] Tissue Topography unknown / Unknown 10/17/2024 10:27 AM EDT 10/17/2024 1:25 PM EDT Comment:Pre-op diagnosis: Critical limb ischemia of left lower extremity [I70.222] us Terrell Gautam MD LAB PATHOLOGY ORDERABLES Gwen grimaldo Result [facility] [address] [place] [address] * POCT ACT (10/17/2024 10:03 AM EDT) ACT+ (HIGH RANGE) 244 68 - 600 Seconds 10/29/2024 7:28 AM EDT [facility] Supervisor Tower ID Donna Mcmillan Maya 10/29/2024 7:28 AM EDT [facility] ACT Device ID [id number] 10/29/2024 7:28 AM EDT [facility] Comment 10/29/2024 7:28 AM EDT [facility] Comment: ACT performed by staff [...] Final Result [facility] [address] LAB [address] [place] [address] * (ABNORMAL) Blood gas, arterial (10/17/2024 9:45 AM EDT) pH, Arterial 7.37 7.31 - 7.42 LAB HEMATOLOGY METHOD 10/17/2024 9:55 AM EDT [facility] pCO2, Arterial 43 32 - 45 mmHg LAB HEMATOLOGY METHOD 10/17/2024 9:55 AM EDT [facility] pO2, Arterial 177 >80 mmHg LAB HEMATOLOGY METHOD 10/17/2024 9:55 AM EDT [facility] SO2, Measured, Arterial 100(H) 94 - 98 % LAB HEMATOLOGY METHOD 10/17/2024 9:55 AM EDT [facility] Base Excess, Arterial -0.5 -2.0 - 3.0 mmol/L LAB HEMATOLOGY METHOD 10/17/2024 9:55 AM EDT [facility] Bicarbonate, Calculated, Arterial 25 22 - 26 mmol/L LAB HEMATOLOGY METHOD 10/17/2024 9:55 AM EDT [facility] Hematocrit, Whole Blood 30.0(L) 40.0 - 51.0 % LAB HEMATOLOGY METHOD 10/17/2024 9:55 AM EDT [facility] Sodium, Whole Blood 137 136 - 145 mmol/L LAB HEMATOLOGY METHOD 10/17/2024 9:55 AM EDT [facility] Potassium, Whole Blood 4.3 3.6 - 4.9 mmol/L LAB HEMATOLOGY METHOD 10/17/2024 9:55 AM EDT [facility] Chloride, Whole Blood 108(H) 97 - 107 mmol/L LAB HEMATOLOGY METHOD 10/17/2024 9:55 AM EDT [facility] Glucose, Whole Blood 191(H) 74 - 99 mg/dL LAB HEMATOLOGY METHOD 10/17/2024 9:55 AM EDT [facility] Ionized Calcium, Whole Blood 5.0 4.6 - 5.1 mg/dL LAB HEMATOLOGY METHOD 10/17/2024 9:55 AM EDT [facility] Lactate, Arterial, Whole Blood 1.3 0.5 - 1.6 mmol/L LAB HEMATOLOGY METHOD 10/17/2024 9:55 AM EDT [facility] Blood Arterial blood specimen / Unknown Arterial Line / Unknown 10/17/2024 9:45 AM EDT 10/17/2024 9:52 AM EDT Jenna Lopez CRNA LAB BLOOD ORDERABLES Final Re sult [facility] [address] [place] [address] * (ABNORMAL) Blood gas, arterial (10/17/2024 8:47 AM EDT) pH, Arterial 7.37 7.31 - 7.42 LAB HEMATOLOGY METHOD 10/17/2024 8:59 AM EDT [facility] pCO2, Arterial 43 32 - 45 mmHg LAB HEMATOLOGY METHOD 10/17/2024 8:59 AM EDT [facility] pO2, Arterial 205 >80 mmHg LAB HEMATOLOGY METHOD 10/17/2024 8:59 AM EDT [facility] SO2, Measured, Arterial 100(H) 94 - 98 % LAB HEMATOLOGY METHOD 10/17/2024 8:59 AM EDT [facility] Base Excess, Arterial -0.3 -2.0 - 3.0 mmol/L LAB HEMATOLOGY METHOD 10/17/2024 8:59 AM EDT [facility] Bicarbonate, Calculated, Arterial 25 22 - 26 mmol/L LAB HEMATOLOGY METHOD 10/17/2024 8:59 AM EDT [facility] Hematocrit, Whole Blood 31.3(L) 40.0 - 51.0 % LAB HEMATOLOGY METHOD 10/17/2024 8:59 AM EDT [facility] Sodium, Whole Blood 138 136 - 145 mmol/L LAB HEMATOLOGY METHOD 10/17/2024 8:59 AM EDT [facility] Potassium, Whole Blood 4.0 3.6 - 4.9 mmol/L LAB HEMATOLOGY METHOD 10/17/2024 8:59 AM EDT [facility] Chloride, Whole Blood 108(H) 97 - 107 mmol/L LAB HEMATOLOGY METHOD 10/17/2024 8:59 AM EDT [facility] Glucose, Whole Blood 162(H) 74 - 99 mg/dL LAB HEMATOLOGY METHOD 10/17/2024 8:59 AM EDT [facility] Ionized Calcium, Whole Blood 5.2(H) 4.6 - 5.1 mg/dL LAB HEMATOLOGY METHOD 10/17/2024 8:59 AM EDT [facility] Lactate, Arterial, Whole Blood 1.7(H) 0.5 - 1.6 mmol/L LAB HEMATOLOGY METHOD 10/17/2024 8:59 AM EDT [facility] Blood Arterial blood specimen / Unknown Arterial Puncture / Unknown 10/17/2024 8:47 AM EDT 10/17/2024 8:58 AM EDT us Jenna Lopez [facility] LAB BLOOD ORDERABLES Final Re sult [facility] [address] [place] [address] * POCT ACT (10/17/2024 8:46 AM EDT) ACT+ (HIGH RANGE) 101 68 - 600 Seconds 10/29/2024 7:28 AM EDT [facility]ALTH[facility] LAB Supervisor Tower ID Donna Mcmillan Maya 10/29/2024 7:28 AM EDT [facility] ACT Device ID [id number] 10/29/2024 7:28 AM EDT [facility] Comment 10/29/2024 7:28 AM EDT [facility] Comment: ACT performed by staff [...] UNSOLICITED RESULTS Final Result Performing Organization Address [facility] Co de Phone Number [facility]ALTH[facility]ARE LAB [address] LAB [address] [place] [address] * Type and Screen (10/17/2024 7:19 AM [...] ORDERAB LES Final Result Performing Organization Address [facility] de Phone Number BLOOD BANK [address] [place] [address] * (ABNORMAL) POCT glucose meter (10/17/2024 6:44 AM EDT) [facility] POCT Glucose 178(H) 74 - 99 [...] 10/17/2024 6:49 AM EDT [facility] Supervisor Tower ID Hunter Burroughs 10/18/19 6:49 AM EDT [facility] Device ID [id number] 10/17/2024 6:49 AM EDT [facility] LAB Specimen Type POC Capillary 10/17/2024 6:49 AM EDT [facility] Blood Capillary blood specimen / Unknown 10/17/2024 6:44 AM EDT 10/17/2024 6:49 AM EDT Terrell Gautam MD LAB POINT OF CARE TE ST DOCKED DEVICE UNSOLICITED RESULTS Final Result [facility] [address] [place] [address] documented in this encounter Visit Diagnoses Diagnosis [...] as of this encounter Care Teams Learning Design Specialist Relationship Specialty Start Date End Date Asad Victor MD [address] [place] [id number] PCP - General 10/07/22 documented as of this encounter
--- OUTSIDE RECORDS SUMMARY | 2024-10-17 07:51 | XMS_ITS | Encounter Summary ---
Author Organization [facility] Address [address] [id number] Care Team Providers Care Pocketed Spring Assembler Name Role Phone Asad Victor MD Primary Care Provider + [phone] Reason for Visit * Auth/Cert (Routine) Specialty Diagnoses / Procedures Referred By Contac t Referred To Contact Diagnoses Critical limb ischemia of left lower extremity Critical limb ischemia of left lower extremity [I70.222] Procedures CT VEIN BYPASS GRAFT,FEM-POP CREATION, BYPASS, ARTERIAL, FEMORAL TO POPLITEAL Terrell Gautam MD [address] [facility] [address] [place] [address] Phone: tel: fax: P[facility] A OPERATING ROOM [address] [place] [address] Phone: tel: Referral ID Status Reason Start Date Expiration Date Visits Re quested Visits Authorized [id number] 1 1 Encounter Details Date Type Department Care Team (Late st Contact Info) Description 10/17/2024 7:51 AM EDT Anesthesia Event [facility]PERATING ROOM [address] [place] [id number] Maria Fernanda Mccallum MD [address] [place] [address] Anesthesia Record Procedure Summary Procedure [...] Hand; Site Prep: Chlorhexidine ; Local Anesth: [place]; Technique: Anatomical landmarks; Inserted by: CHRISTIAN Acuna; [...] any time in the past 12 m [facility], were you homeless or living in a [facility] (including now)? No 10/18/2024 CAGE ASSESSMENT Answer [...] drink first t dino in the morning (EYE-CRINKLING MACHINE OPERATOR) to steady your nerves or [...] * Anesthesia Postprocedure Evaluation - Jenna Lopez, SPECIALIST EMPLOYEE LABOR RELATIONS - 10/17/2024 1:29 PM EDT Patient: Mono [...] by Swetha Villareal MD Staffing Performed: ISH SPECIALIST EMPLOYEE LABOR RELATIONS: Jenna Lopez CRNA * Anesthesia Procedure Notes - Jnena Lopez CRNA - 10/17/2024 9:00 AM EDT Associated Order(s): Airway Airway Date/Time: 10/17/2024 8:03 AM Reason: elective Airway not difficult General Information and Staff Patient location during procedure: [place] SPECIALIST EMPLOYEE LABOR RELATIONS: Jenna Lopez CRNA Performed: SPECIALIST EMPLOYEE LABOR RELATIONS Patient Condition Indications for airway management: anesthesia [...] note 09/25/24 (media) + CAD s/p multiple HI's and 3V CABG 02/2019, 2 stents prior to CABG Atrial Fibrillation with RVR s/p CABG + carotid artery disease s/p R CEA 2016 + 3rd degree AV block ELECTRONIC SECURITY TECHNICIAN-P placed 08/2023 for Wenkeback with 11 sec pause + HLD + HTN - controlled + PAD 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 CORONARY ANGIOPLASTY Left Coronary Angiography With Concomitant Left Heart Catheterization from [place] ??? CORONARY ARTERY BYPASS GRAFT N/A 2018 [...] Description 12/13/2024 2:00 PM EDT Office Visit [facility] [address] [place] [address] Oscar Appiah MD [address] [facility] [address] [place] [address] 12/19/2024 7:30 AM EDT Appointment [facility] [address] [place] [address] 12/19/2024 8:00 AM EDT Appointment [facility] [address] [place] [address] [address] [place] [address] 12/19/2024 9:00 AM EDT Office Visit [facility] [address] [place] [address] [address] [place] [address] Nathaly Nowak MD [address] [place] [address] [address] [place] [address] documented as of this encounter Goals Goal [...] ANESTHESIA PLACEHOLDER Routine 10/17/2024 8:[address] AN ELECTIVE ENDOTRACHEAL AIRWAY Routine 10/17/2024 8:03 [...] Performed by Swetha Villareal MD Staffing Performed: SPECIALIST EMPLOYEE LABOR RELATIONS SPECIALIST EMPLOYEE LABOR RELATIONS: Jenna Lopez CRNA Maria Fernanda Mccallum MD ANESTHESIA ORDERABLES Edite d Result - Final * CT AN ELECTIVE ENDOTRACHEAL AIRWAY, PB ANESTHESIA PLACEHOLDER (10/17/2024 8:03 AM EDT) Narrative Jenna Lopez CRNA - 10/17/2024 8:03 AM EDT Jenna Lopez CRNA 10/17/2024 9:00 AM Airway Date/Time: 10/17/2024 8:03 AM Reason: elective Airway not difficult General Information and Staff Patient location during procedure: [place] SPECIALIST EMPLOYEE LABOR RELATIONS: Jenna Lopez CRNA Performed: ISH Patient Condition [...] Trace AR. The images were Saved in [employer]. The study was technically adequate. Comments: I [...] documented as of this encounter Care Teams Pocketed Spring Assembler Relationship Specialty Start Date End Date Asad Victor MD [address] [place] [address] PCP - General 10/07/22 documented as of this encounter
--- OUTSIDE RECORDS SUMMARY | 2024-10-17 08:00 | XMS_ITS | Encounter Summary ---
Author Organization [facility] Address [address] [place] [address] Care Team Providers Care Hyster Machine Operator Name Role Phone Asad Victor MD Primary Care Provider + [phone] Reason for Visit * Auth/Cert (Routine) Specialty Diagnoses / Procedures Referred By Contac t Referred To Contact Diagnoses Critical limb ischemia of left lower extremity Critical limb ischemia of left lower extremity [I70.222] Procedures OK VEIN BYPASS GRAFT,FEM-POP CREATION, BYPASS, ARTERIAL, FEMORAL TO POPLITEAL Terrell Gautam MD [address] [address] Phone: tel: fax: [facility] [address] [place] [address] Phone: tel: Referral ID Status Reason Start Date Expiration Date Visits Re quested Visits Authorized [id number] 1 1 Encounter Details Date Type Department Care Team (Late st Contact Info) Description 10/17/2024 8:00 AM EDT - 10/17/2024 2:50 PM EDT Surgery [facility] [address] [place] [address] Terrell Gautam MD [address] [address] CREATION, BYPASS, ARTERIAL, FEMORAL TO POPLITEAL [96602 (CPT )] Surgery Details Date/Time Status Location [...] any time in the past 12 m [facility], were you homeless or living in a half-way (including now)? No 10/18/2024 CAGE ASSESSMENT Answer [...] drink first t dino in the morning (EYE-RECORDINGS LIBRARIAN) to steady your nerves or to get rid of a hangover? 0 10/18/2021 CAGE Questionnaire Score 0 022 Utilities Answer Date Recorded In the past 12 months has th e Delfm[employer], gas, oil, or water MD Lingo threatened to shut off services in your [...] provided Taken 10/17/20242107 by Jourdan Grimes II, circulation sales representative Review/Management: medications reviewed Problem: Skin Injury Risk [...] Ongoing, Progressing Intervention: Promote Activity and Functional [place] Flowsheets (Taken 10/19/2024 1048) Self-Care Promotion: BADL personal objects within reach meal set-up provided * Yuni Ramires - Keyla Chow - 10/19/2024 11:45 AM EDT Images from the original note were not included. [id number] After Peripheral Artery Bypass Surgery: In the [...] home. Last Reviewed Date: 2023 00:00:00 ?? [id number] [employer]. All rights reserved. This information is not intended as a substitute for professional medical care. Always follow your healthcare professional's instructions. * Progress Notes - Emelina Friend - 10/19/2024 11:44 AM EDT Case Management Adult Progress Note Bev Bobby 64 y.o. male CSN: [id number] Admission: 10/17/2024 6:21 AM Primary Problem: Critical [...] if any other needs arise. Emelina Friend MACHINE DRILLER, HOUSEPERSON Social Work Case Management * Yuni Ramires - Keyla Chow - 10/19/2024 11:44 AM EDT Images from the original note were not included. [id number] Peripheral Artery Disease (PAD) Peripheral artery disease [...] cause. Last Reviewed Date: 2024 00:00:00 ?? [id number] [employer]. All rights reserved. This information is not intended as a substitute for professional medical care. Always follow your healthcare professional's instructions. * Yuni Ramires - Keyla Chow - 10/19/2024 11:44 AM EDT Images from the original note were not included. [id number] Leg Artery Emergencies: Critical Limb Ischemia (CLI) [...] appointments. Last Reviewed Date: 2023 00:00:00 ?? [phone] [employer]. All rights reserved. This information is not intended as a substitute for professional medical care. Always follow your healthcare professional's instructions. * Discharge Summary - Dandy Baltazar MD - 10/19/2024 11:31 AM EDT Hospitalization Admit Date/Time: 10/17/2024 6:21 AM Admitting Attending: Terrell Gautam Discharge Date: 10/19/24 Discharge Attending Physician: Nirmal Cueto MD PCP name and Address: Asad Victor MD (Inactive) [address] [facility] [address] Referring provider name and address: Timothy Marques PA [address] [place] [address] Chief Concern, Brief History of Present Illness, and Hospital Course Bev Bobby is an 64 y.o. 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 [...] Your Medications These medications were sent to [facility] [place], [place] - [address] [facility]. 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 [...] provided Taken 10/17/20242107 by Jourdan Grimes II circulation sales representative Review/Management: medications reviewed Problem: Skin Injury Risk [...] Ongoing, Progressing Intervention: Promote Activity and Functional [place] Flowsheets (Taken 10/19/2024 1048) Self-Care Promotion: BADL [...] evaluation. PARTICIPANTS IN CARE Visitors Present No Leather Crafter (if applicable) PRESENTATION Oxygen Oxygen Therapy: None [...] Level of Mobility Ambulatory- household only Mobility [place] Independent gait with device (rollator) History of [...] numbness in rodney) BED MOBILITY Level of [place] Physical/Non- physical Assist Adaptive Equipment Utilized Rolling/ Turning Scooting/ Bridging Modified independence (anteriorly to EOB) Bed rails Supine to Sit Modified [place] (to the right) (HOB flat) Bed rails Sit to Supine Interventions HOB flat to simulate home environment TRANSFERS Level of [place] Physical/Non- physical Assist Adaptive Equipment Utilized Sit [...] stable surfaces during transitions. AMBULATION Level of [place] Distance Adaptive Equipment Utilized Ambulation Standby assist, [...] Posture: Forward head, Rounded shoulders Level of [place] Balance Support Interventions Static Sit Independent Right [...] 6-Clicks Mobility Assessment [facility] 6-Clicks Mobility Assessment Difficulty patient has turning [...] railing?: A little [facility] 6-Clicks Mobility Assessment Total : 22 ASSESSMENT [...] evaluation/session. Participants in Care Family/Caregiver Present: No Leather Crafter: Not Applicable Presentation Oxygen Therapy: None (Room [...] Level of Mobility: Ambulatory- household only Mobility [place]: Independent gait with device (rollator) History of [...] Mobility Bed Mobility Exam: Scooting/Bridging Level of Dan[place]: Modified independence (anteriorly to EOB) Assistive Device: Bed rails Bed Mobility Exam: Supine to Sit Level of Dan[place]: Modified [place] (to the right) Physical/Nonphysical Assist: (HOB flat) Assistive Device: Bed rails Transfers Transfer Exam: Sit to stand Level of Dan[place]: Stand-by assist Physical/Nonphysical Assist: Supervision, Verbal Cues, Minimal cues Assistive Device: Walker, rolling Transfer Exam: Stand to Sit Level of Danbury: Stand-by assist Physical/Nonphysical Assist: Supervision, Verbal Cues, [...] toileting at this time. Standardized Assessments [facility] 6-Click Daily Activities Help from Other: Don/Doff Regular Lower Body Clothings: None Help From Other: Bathing: Little Help From Other: Toileting: None Help From Other: Don/Doff Upper Body Clothings: None Help From Other: Grooming: None Help From Other: Eating Meals: None [facility] 6 Click - Daily Activities Score: 23/24 [facility] Scoring Interpretation: Scores greater than 20.5 suggest [...] Note Bev Bobby 64 y.o. male CSN: [id number] Admission: 10/17/2024 6:21 AM Primary Problem: Critical limb ischemia of left lower extremity Marble Mechanic Helper reviewed chart and spoke with patient to complete this Initial Case Management Assessment. PCP: Asad Victor MD (Inactive) - Dr. Palomo Preferred pharmacy is [facility] Emergency Contact: Extended Emergency Contact Information Primary Emergency Contact: Patti Hill Relation: Sister Leather Crafter needed? No Insurance: Primary Visit Coverage Payer Plan Sponsor Code Group Number Group Name [facility] MEDICARE [facility] MEDICARE REPLACEMENT [id number] Primary Visit Coverage Subscriber Subscriber ID Subscriber Name Subscriber [facility] Subscriber Address [id number] BEV BOBBY [id number] [place] [address] Secondary Visit Coverage Payer Plan Sponsor Code Group Number Group Name [employer] [facility] [employer] [facility] Secondary Visit Coverage Subscriber Subscriber ID Subscriber Name Subscriber [facility] Subscriber Address [id number] BEV BOBBY [id number] [place] [address] Patient information: Primary Caregiver: Self Daily Living Activities: Functional Status: Independent Living Arrangements: Alone Type of Residence: Private residence, Single Level [address] [place] [address] Current DME: Equipment Currently Used at Home: joy monterroso Income Information: Income Source: Retired Income/Expense Information: Income meets expenses Current Resources Utilized: Food Hay Housing Circumstances-Z Codes: Housing Circumstances (select all [...] Dialysis Services: None. Living Will/Advance Directive/Power of Recordist Chief /Guardian: Denied. Additional Comments: Patient is not medically ready for discharge. SW will continue to follow. Mariia Monterroso HOUSEPERSON * Care Plan - Emilia Alonso RN [...] the original note were not included. [facility] Department of Surgery Division of Vascular Surgery [...] supervised assistive device/personal items within [facility] fall prevention program maintained lighting [...] Agree with above assessment and evaluation from resident/FRONT OFFICE SPEC. * Op Note - Terrell Gautam MD - 10/17/2024 8:52 AM EDT Operative Note Date: 10/17/24 Location: [facility] Name: Bev Bobby, : 1960, Diagnoses: Pre-op Diagnosis Critical limb ischemia of left lower extremity Common femoral artery pseudoaneurysm Post-op Diagnosis Critical limb ischemia of left lower extremity Common femoral artery pseudoaneurysm Procedure(s): Left common/superficial/profunda femoral thromboendarterectomy with bovine patch repair Left external iliac artery/MARKETING COMMUNICATIONS MANAGER stent Attending Surgeon(s): * Terrell Gautam - Primary Placement Director(s): * Luna Beckett MD - Resident - [...] Necessity Reasons Recent surgery contiguous with urinary tract/STRATEGIC PROCUREMENT MANAGER/colorectal 10/17/24 190 Output (mL) 50 mL 10/18/24 08 Implants Type Name Action Serial No. VASCUGUARD 8 X 8 - [id number] Implanted STENT ENDOPROSTHESIS VIABAHN 9FR [id number] - [id number] Implanted [id number] Specimen: Specimens ID Source Frozen? 1 Other [...] and distal control. We then proceeded with iuqxq-rmn-roib exposure of the popliteal artery. A medial [...] balloon dilated thestent with a 9 mm Marsing. We closed the arteriotomy with a single [...] 10/17/2024 8:52 AM EDT Date: 10/17/24 Location: [facility] Name: Bev Bobby, : 1960, Diagnoses: Pre-op Diagnosis Critical limb ischemia of left lower extremity Common femoral artery pseudoaneurysm Post-op Diagnosis Critical limb ischemia of left lower extremity Common femoral artery pseudoaneurysm Procedure(s): Left common/superficial/profunda femoral thromboendarterectomy with bovine patch repair Left external iliac artery/MARKETING COMMUNICATIONS MANAGER stent Attending Surgeon(s): * Terrell Gautam - Primary Placement Director(s): * Luna Beckett MD - Resident - Assisting * aDndy Baltazar MD - Fellow Anesthesia: General ASA: III Blood Administration: Blood Product Administration History None Estimated Blood Loss: 300 mL Drains: Urethral Catheter Temperature probe 16 Fr. (Active) Implants Type Name Action Serial No. VASCUGUARD 8 X 8 - [id number] Implanted STENT ENDOPROSTHESIS VIABAHN 9FR [id number] - [id number] Implanted [id number] Specimen: Specimens ID Source Frozen? 1 Other [...] issues. 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 He previouslyunderwent thrombin injection. He reports pain in his calves. He presents today for scheduled left lower extremity femoral to snqlt-rgh-xdlm popliteal bypass. Planned likely use PTFE. He [...] 16. Results Review {Vanishing Link Review Results :[id number] I have reviewed the latest lab and imaging results. Assessment & Plan Critical limb ischemia of left lower extremity Proceed with scheduled surgery left lower extremity femoral to uouap-nkg-sash popliteal artery bypass graft. Extensive discussion had [...] Description 12/13/2024 2:00 PM EDT Office Visit [facility] [address] [place] [phone] Oscar Appiah MD [address] [facility] [address] [place] [phone] 12/19/2024 7:30 AM EDT Appointment [facility] [address] [place] [address] 12/19/2024 8:00 AM EDT Appointment [facility] [address] [place] [address] 12/19/2024 9:00 AM EDT Office Visit [facility] [address] [place] [address] Nathaly Nowak MD [address] [facility] [address] [place] [address] Pending Results Name Type Priority Associated Diagnoses [...] glucose meter (10/19/2024 11:40 AM EDT) Pathologist [facility] POCT Glucose 207(H) 74 - 99 [...] Comment 10/19/2024 11:42 AM EDT HEALTHCARE LAB Wastewater Superintendent ID KamranJob 10/20/19 11:42 AM EDT HEALTHCARE LAB Device ID [id number] 10/19/2024 11:42 AM EDT HEALTHCARE LAB Specimen Type POC Capillary 10/19/2024 11:[address] [facility] Blood Capillary blood specimen / Unknown 10/19/2024 11:40 AM EDT 10/19/2024 11:42 AM EDT us Terrell Gautam MD LAB POINT OF CARE TE ST DOCKED DEVICE UNSOLICITED RESULTS Final Result Performing Organization Address City/State/[facility] Co de Phone Number HEALTHCARE LAB [address] [place] [address] * (ABNORMAL) Protime-INR (10/19/2024 8:25 AM EDT) [facility] Prothrombin Time 17.5(H) 12.0 - 14.3 sec LAB COAGULATION METHOD 10/19/2024 9:25 AM EDT [facility] INR 1.4(H) 0.9 - 1.1 LAB COAGULATION METHOD 10/19/2024 9:25 AM EDT [facility] Blood Venous blood specimen / Unknown Venipuncture / Unknown 10/19/2024 8:25 AM EDT 10/19/2024 8:43 AM EDT Narrative [facility] - 10/19/2024 9:25 AM EDT [...] recurrent ID INR 2.5 to 3.5 us Nirmal Cueto MD LAB BLOOD ORDERABLES Final Result Performing Organization Address [facility]/ZIP Co de Phone Number [facility] [address] [place] [address] * (ABNORMAL) Phosphorus (10/19/2024 8:25 AM EDT) Phosphorus, Plasma 2.2(L) 2.5 - 4.5 mg/dL 10/19/2024 9:12 AM EDT [facility] Blood Venous blood specimen / Unknown Venipuncture / Unknown 10/19/2024 8:25 AM EDT 10/19/2024 8:43 AM EDT Nirmal Cueto MD LAB BLOOD ORDERABLES Final Result Performing Organization Address [facility] Co de Phone Number [facility] [address] [place] [address] * Magnesium (10/19/2024 8:25 AM EDT) Magnesium, Plasma 2.1 1.9 - 2.4 mg/dL 10/19/2024 9:12 AM EDT [facility] Blood Venous blood specimen / Unknown Venipuncture / Unknown 10/19/2024 8:25 AM EDT 10/19/2024 8:43 AM EDT Nirmal Cueto MD LAB BLOOD ORDERABLES Final Result Performing Organization Address [facility] Co de Phone Number [facility] [address] [place] [address] * (ABNORMAL) Basic metabolic panel (10/19/2024 8:25 AM EDT) Glucose, Plasma 191(H) 74 - 99 mg/dL 10/19/2024 9:12 AM EDT [facility] BUN, Plasma 18 8 - 23 mg/dL 10/19/2024 9:12 AM EDT [facility] Creatinine, Plasma 0.76 0.70 - 1.20 mg/dL 10/19/2024 9:12 AM EDT [facility] BUN/Creatinine Ratio 24 10/19/2024 9:12 AM EDT [facility] Sodium, Plasma 135(L) 136 - 145 mmol/L 10/19/2024 9:12 AM EDT [facility] Potassium, Plasma 4.1 3.6 - 4.9 mmol/L 10/19/2024 9:12 AM EDT [facility] Chloride, Plasma 104 97 - 107 mmol/L 10/19/2024 9:12 AM EDT [facility] CO2, Plasma 22 22 - 29 mmol/L 10/19/2024 9:12 AM EDT [facility] Anion Gap 9 6 - 16 mmol/L 10/19/2024 9:12 AM EDT [facility] Total Calcium, Plasma 8.4(L) 8.9 - 10.2 mg/dL 10/19/2024 9:12 AM EDT [facility] eGFRcr 99.7 mL/min/1.7 3m*2 10/19/2024 9:12 AM EDT [facility] Comment:Reported eGFRcr in m L/min/1.73m2 is based the CKD-EPI 2020 equation that does not use a race coefficient. Blood Venous blood specimen / Unknown Venipuncture / Unknown 10/19/2024 8:25 AM EDT 10/19/2024 8:43 AM EDT us Nirmal Cueto MD LAB BLOOD ORDERABLES Final Result [facility] [address] [place] [address] * (ABNORMAL) CBC W/O Differential (10/19/2024 8:25 AM EDT) WBC Count 14.10(H) 3.70 - 10.30 10*3/uL LAB HEMATOLOGY METHOD 10/19/2024 8:52 AM EDT [facility] RBC Count 2.61(L) 4.60 - 6.10 10*6/uL LAB HEMATOLOGY METHOD 10/19/2024 8:52 AM EDT [facility] HGB 8.0(L) 13.7 - 17.5 g/dL LAB HEMATOLOGY METHOD 10/19/2024 8:52 AM EDT [facility] HCT 24.3(L) 40.0 - 51.0 % LAB HEMATOLOGY METHOD 10/19/2024 8:52 AM EDT [facility] Platelet Count 318 155 - 369 10*3/uL LAB HEMATOLOGY METHOD 10/19/2024 8:52 AM EDT [facility] MCV 93 79 - 98 fL LAB HEMATOLOGY METHOD 10/19/2024 8:52 AM EDT [facility] MCH 30.7 26.0 - 32.0 pg LAB HEMATOLOGY METHOD 10/19/2024 8:52 AM EDT [facility] MCHC 32.9 30.7 - 35.5 g/dL LAB HEMATOLOGY METHOD 10/19/2024 8:52 AM EDT [facility] RDW 13.4 11.5 - 14.5 % LAB HEMATOLOGY METHOD 10/19/2024 8:52 AM EDT [facility] MPV 9.6 8.8 - 12.5 fL LAB HEMATOLOGY METHOD 10/19/2024 8:52 AM EDT [facility] nRBC 0.0 <=0.0 per 100 WBCs LAB HEMATOLOGY METHOD 10/19/2024 8:52 AM EDT [facility] Blood Venous blood specimen / Unknown Venipuncture / Unknown 10/19/2024 8:25 AM EDT 10/19/2024 8:44 AM EDT us Nirmal Cueto MD LAB BLOOD ORDERABLES Final Result [facility] [address] [place] [address] * (ABNORMAL) POCT glucose meter (10/19/2024 7:35 AM EDT) POCT Glucose 187(H) 74 - 99 mg/dL 10/19/2024 7:[address] [facility] Comment:Accuracy of a glucos e result [...] Comment 10/19/2024 7:37 AM EDT HEALTHCARE LAB Wastewater Superintendent ID Job Andrew 10/20/19 7:37 AM EDT HEALTHCARE LAB Device ID [id number] 10/19/2024 7:37 AM EDT HEALTHCARE LAB Specimen Type POC Capillary 10/19/2024 7:37 AM EDT HEALTHCARE LAB Blood Capillary blood specimen / Unknown 10/19/2024 7:35 AM EDT 10/19/2024 7:37 AM EDT us Terrell Gautam MD LAB POINT OF CARE TE ST DOCKED DEVICE UNSOLICITED RESULTS Final Result Performing Organization Address City/State/[facility] Co de Phone Number HEALTHCARE LAB [address] [place] [address] * (ABNORMAL) POCT glucose meter (10/18/2024 7:22 [...] Comment 10/18/2024 7:24 PM EDT HEALTHCARE LAB Wastewater Superintendent ID Mahesh Aldana 10/18/2024 7:24 PM EDT HEALTHCARE LAB Device ID [id number] 10/18/2024 7:24 PM EDT HEALTHCARE LAB Specimen Type POC Capillary 10/18/2024 7:24 PM EDT HEALTHCARE LAB Blood Capillary blood specimen / Unknown 10/18/2024 7:22 PM EDT 10/18/2024 7:24 PM EDT us Terrell Gautam MD LAB POINT OF CARE TE ST DOCKED DEVICE UNSOLICITED RESULTS Final Result Performing Organization Address [facility] Co de Phone Number [facility] [address] [place] [address] * (ABNORMAL) POCT glucose meter (10/18/2024 6:07 PM EDT) Pathologist [facility] POCT Glucose 167(H) 74 - 99 [...] Comment 10/18/2024 6:09 PM EDT HEALTHCARE LAB Wastewater Superintendent ID David Parks Elaine 10/18/2024 6:09 PM EDT HEALTHCARE LAB Device ID [id number] 10/18/2024 6:09 PM EDT HEALTHCARE LAB Specimen Type POC Capillary 10/18/2024 6:[address] [facility] Blood Capillary blood specimen / Unknown 10/18/2024 6:07 PM EDT 10/18/2024 6:09 PM EDT Terrell Gautam MD LAB POINT OF CARE TE ST DOCKED DEVICE UNSOLICITED RESULTS Final Result Performing Organization Address [facility] Co de Phone Number [facility] [address] [place] [address] * (ABNORMAL) POCT glucose meter (10/18/2024 11:56 AM EDT) [facility] POCT Glucose 233(H) 74 - 99 mg/dL [...] 10/21/2024 7:42 AM EDT [facility] Wastewater Superintendent ID Venessa Macrano 10/21/2024 7:42 AM EDT [facility] Device ID [id number] 10/21/2024 7:42 AM EDT HEALTHCARE LAB Specimen Type POC Capillary 10/21/2024 7:42 AM EDT HEALTHCARE LAB Blood Capillary blood specimen / Unknown 10/18/2024 11:56 AM EDT 10/21/2024 7:42 AM EDT us Terrell Gautam MD LAB POINT OF CARE TE ST DOCKED DEVICE UNSOLICITED RESULTS Final Result Performing Organization Address City/[facility] Co de Phone Number [facility] [address] [place] [address] * (ABNORMAL) POCT glucose meter (10/18/2024 9:24 AM EDT) Pathologist [facility] POCT Glucose 322(H) 74 - 99 [...] 10/21/2024 7:42 AM EDT [facility] Wastewater Superintendent ID Emilia Alonso 7:42 AM EDT [facility] Device ID [id number] 10/21/2024 7:42 AM EDT [facility] Specimen Type POC Venous 10/21/2024 7:42 AM EDT HEALTHCARE LAB Blood Venous blood specimen / Unknown 10/18/2024 9:24 AM EDT 10/21/2024 7:42 AM EDT us Terrell Gautam MD LAB POINT OF CARE TE ST DOCKED DEVICE UNSOLICITED RESULTS Final Result Performing Organization Address City/[facility] Co de Phone Number [facility] [address] [place] [address] * (ABNORMAL) POCT glucose meter (10/18/2024 7:36 [...] Comment 10/18/2024 7:38 AM EDT HEALTHCARE LAB Wastewater Superintendent ID Kizzy Godfrey 025 7:38 AM EDT HEALTHCARE LAB Device ID [id number] 10/18/2024 7:[address] [facility] Specimen Type POC Capillary 10/18/2024 7:[address] [facility] Blood Capillary blood specimen / Unknown 10/18/2024 7:36 AM EDT 10/18/2024 7:38 AM EDT us Terrell Gautam MD LAB POINT OF CARE TE ST DOCKED DEVICE UNSOLICITED RESULTS Final Result [facility]ARE [facility] [address] [place] [address] * (ABNORMAL) CBC (10/18/2024 2:09 AM EDT) [facility] WBC Count 16.71(H) 3.70 - 10.30 10*3/uL LAB HEMATOLOGY METHOD 10/18/2024 2:33 AM EDT [facility] RBC Count 2.78(L) 4.60 - 6.10 10*6/uL LAB HEMATOLOGY METHOD 10/18/2024 2:33 AM EDT [facility] HGB 8.5(L) 13.7 - 17.5 g/dL LAB HEMATOLOGY METHOD 10/18/2024 2:33 AM EDT [facility] HCT 25.7(L) 40.0 - 51.0 % LAB HEMATOLOGY METHOD 10/18/2024 2:33 AM EDT [facility] Platelet Count 324 155 - 369 10*3/uL LAB HEMATOLOGY METHOD 10/18/2024 2:33 AM EDT [facility] MCV 92 79 - 98 fL LAB HEMATOLOGY METHOD 10/18/2024 2:33 AM EDT [facility] MCH 30.6 26.0 - 32.0 pg LAB HEMATOLOGY METHOD 10/18/2024 2:33 AM EDT [facility] MCHC 33.1 30.7 - 35.5 g/dL LAB HEMATOLOGY METHOD 10/18/2024 2:33 AM EDT [facility] RDW 13.3 11.5 - 14.5 % LAB HEMATOLOGY METHOD 10/18/2024 2:33 AM EDT [facility] MPV 9.4 8.8 - 12.5 fL LAB HEMATOLOGY METHOD 10/18/2024 2:33 AM EDT [facility] nRBC 0.0 <=0.0 per 100 WBCs LAB HEMATOLOGY METHOD 10/18/2024 2:33 AM EDT [facility] Blood Venous blood specimen / Unknown Venipuncture / Unknown 10/18/2024 2:09 AM EDT 10/18/2024 2:25 AM EDT Nirmal Cueto MD LAB BLOOD ORDERABLES Final Result [facility] [address] [place] [address] * (ABNORMAL) Basic metabolic panel (10/18/2024 2:09 AM EDT) Glucose, Plasma 206(H) 74 - 99 mg/dL 10/18/2024 2:53 AM EDT [facility] BUN, Plasma 24(H) 8 - 23 mg/dL 10/18/2024 2:53 AM EDT [facility] Creatinine, Plasma 1.17 0.70 - 1.20 mg/dL 10/18/2024 2:53 AM EDT [facility] BUN/Creatinine Ratio 21 10/18/2024 2:53 AM EDT [facility] Sodium, Plasma 136 136 - 145 mmol/L 10/18/2024 2:53 AM EDT [facility] Potassium, Plasma 4.8 3.6 - 4.9 mmol/L 10/18/2024 2:53 AM EDT [facility] Chloride, Plasma 104 97 - 107 mmol/L 10/18/2024 2:53 AM EDT [facility] CO2, Plasma 22 22 - 29 mmol/L 10/18/2024 2:53 AM EDT [facility] Anion Gap 10 6 - 16 mmol/L 10/18/2024 2:53 AM EDT [facility] Total Calcium, Plasma 8.5(L) 8.9 - 10.2 mg/dL 10/18/2024 2:53 AM EDT [facility] eGFRcr 69.2 mL/min/1.7 3m*2 10/18/2024 2:53 AM EDT [facility] Comment:Reported eGFRcr in m L/min/1.73m2 is based the CKD-EPI 2020 equation that does not use a race coefficient. Blood Venous blood specimen / Unknown Venipuncture / Unknown 10/18/2024 2:09 AM EDT 10/18/2024 2:25 AM EDT Nirmal Cueto MD LAB BLOOD ORDERABLES Final Result Performing Organization Address City/[facility]/ZIP Co de Phone Number [facility] [address] [place] [address] * (ABNORMAL) Magnesium (10/18/2024 2:09 AM EDT) Magnesium, Plasma 1.8(L) 1.9 - 2.4 mg/dL 10/18/2024 2:53 AM EDT [facility] Blood Venous blood specimen / Unknown Venipuncture / Unknown 10/18/2024 2:09 AM EDT 10/18/2024 2:25 AM EDT Nirmal Cueto MD LAB BLOOD ORDERABLES Final Result [facility] [address] [place] [address] * Phosphorus (10/18/2024 2:09 AM EDT) Phosphorus, Plasma 3.7 2.5 - 4.5 mg/dL 10/18/2024 2:53 AM EDT [facility] Blood Venous blood specimen / Unknown Venipuncture / Unknown 10/18/2024 2:09 AM EDT 10/18/2024 2:25 AM EDT Nirmal Cueto MD LAB BLOOD ORDERABLES Final Result Performing Organization Address [facility] Co de Phone Number [facility] [address] [place] [address] * (ABNORMAL) Protime-INR (10/18/2024 2:09 AM EDT) Prothrombin Time 14.5(H) 12.0 - 14.3 sec LAB COAGULATION METHOD 10/18/2024 2:53 AM EDT [facility] INR 1.1 0.9 - 1.1 LAB COAGULATION METHOD 10/18/2024 2:53 AM EDT [facility] Blood Venous blood specimen / Unknown Venipuncture / Unknown 10/18/2024 2:09 AM EDT 10/18/2024 2:25 AM EDT Narrative [facility] - 10/18/2024 2:53 AM EDT [...] of recurrent ID INR 2.5 to 3.5 Result [facility] Nirmal Cueto MD LAB BLOOD ORDERABLES Final Result Performing Organization Address [facility] Co de Phone Number [facility] [address] [place] [address] * (ABNORMAL) POCT glucose meter (10/18/2024 2:08 AM EDT) POCT Glucose 202(H) 74 - 99 mg/dL 10/18/2024 2:[address] [facility] Comment:Accuracy of a glucos e result [...] Comment 10/18/2024 2:10 AM EDT [facility] LAB Wastewater Superintendent ID Jourdan Grimes II 10/18/2024 2:10 AM EDT HEALTH[facility]ARE LAB Device ID [id number] 10/18/2024 2:10 AM EDT [facility] Specimen Type POC Capillary 10/18/2024 2:10 AM EDT [facility] Blood Capillary blood specimen / Unknown 10/18/2024 2:08 AM EDT 10/18/2024 2:10 AM EDT us Terrell Gautam MD LAB POINT OF CARE TE ST DOCKED DEVICE UNSOLICITED RESULTS Final Result Performing Organization Address City/[facility] Co ms Phone Number HEALTHCARE LAB [address] [place] [address] * (ABNORMAL) POCT glucose meter (10/17/2024 10:07 [...] Comment 10/17/2024 10:10 PM EDT [facility] LAB Wastewater Superintendent ID Jourdan Grimes II 10/17/2024 10:10 PM EDT HEALTH[facility]ARE LAB Device ID [id number] 10/17/2024 10:10 PM EDT [facility] LAB Specimen Type POC Capillary 10/17/2024 10:10 PM EDT [facility] Blood Capillary blood specimen / Unknown 10/17/2024 10:07 PM EDT 10/17/2024 10:10 PM EDT us Terrell Gautam MD LAB POINT OF CARE TE ST DOCKED DEVICE UNSOLICITED RESULTS Final Result [facility] [address] [place] [address] * (ABNORMAL) POCT glucose meter (10/17/2024 8:07 PM EDT) [facility] POCT Glucose 391(H) 74 - 99 mg/dL [...] Comment 10/17/2024 8:10 PM EDT HEALTHCARE LAB Wastewater Superintendent ID Cornelio WALTERS Jourdan 10/17/2024 8:10 PM EDT HEALTHCARE LAB Device ID [id number] 10/17/2024 8:10 PM EDT [facility] Specimen Type POC Capillary 10/17/2024 8:[address] [facility] Blood Capillary blood specimen / Unknown 10/17/2024 8:07 PM EDT 10/17/2024 8:10 PM EDT Terrell Gautam MD LAB POINT OF CARE TE ST DOCKED DEVICE UNSOLICITED RESULTS Final Result Performing Organization Address [facility] de Phone Number [facility] [address] [place] [address] * (ABNORMAL) POCT glucose meter (10/17/2024 4:01 PM EDT) [facility] POCT Glucose 249(H) 74 - 99 mg/dL [...] 10/17/2024 4:03 PM EDT [facility] Wastewater Superintendent ID Chelsieamanda Keisha 10/17/2024 4:03 PM EDT [facility] Device ID [id number] 10/17/2024 4:03 PM EDT [facility] Specimen Type POC Capillary 10/17/2024 4:03 PM EDT [facility] Blood Capillary blood specimen / Unknown 10/17/2024 4:01 PM EDT 10/17/2024 4:03 PM EDT us Terrell Gautam MD LAB POINT OF CARE TE ST DOCKED DEVICE UNSOLICITED RESULTS Final Result Performing Organization Address City/[facility] Co de Phone Number [facility] [address] [place] [address] * (ABNORMAL) POCT glucose meter (10/17/2024 1:25 [...] 10/17/2024 1:27 PM EDT [facility] Wastewater Superintendent ID Kizzy Godfrey 025 1:27 PM EDT [facility] Device ID [id number] 10/17/2024 1:27 PM EDT [facility] Specimen Type POC Capillary 10/17/2024 1:27 PM EDT [facility] Blood Capillary blood specimen / Unknown 10/17/2024 1:25 PM EDT 10/17/2024 1:27 PM EDT us Terrell Gautam MD LAB POINT OF CARE TE ST DOCKED DEVICE UNSOLICITED RESULTS Final Result Performing Organization Address City/[facility] Co de Phone Number [facility] [address] [place] [address] * [place] Less than 1 Hour Intraoperative [...] Seconds 10/29/2024 7:28 AM EDT HEALTHCARE LAB Wastewater Superintendent ID Donna Mcmillan 10/29/2024 7:28 AM EDT [facility]ALTH[facility]ARE LAB ACT Device ID [id number] 10/29/2024 7:[address] [facility] Comment 10/29/2024 7:28 AM EDT [facility] Comment: ACT performed by staff [...] UNSOLICITED RESULTS Final Result Performing Organization Address City/[facility] Co de Phone Number [facility] [address] LAB [address] [place] [address] * (ABNORMAL) Blood gas, arterial (10/17/2024 11:48 AM EDT) pH, Arterial 7.34 7.31 - 7.42 LAB HEMATOLOGY METHOD 10/17/2024 11:54 AM EDT [facility] pCO2, Arterial 41 32 - 45 mmHg LAB HEMATOLOGY METHOD 10/17/2024 11:54 AM EDT [facility] pO2, Arterial 202 >80 mmHg LAB HEMATOLOGY METHOD 10/17/2024 11:54 AM EDT [facility] SO2, Measured, Arterial 100(H) 94 - 98 % LAB HEMATOLOGY METHOD 10/17/2024 11:54 AM EDT [facility] Base Excess, Arterial -3.2(L) -2.0 - 3.0 mmol/L LAB HEMATOLOGY METHOD 10/17/2024 11:54 AM EDT [facility] Bicarbonate, Calculated, Arterial 22 22 - 26 mmol/L LAB HEMATOLOGY METHOD 10/17/2024 11:54 AM EDT [facility] Hematocrit, Whole Blood 28.6(L) 40.0 - 51.0 % LAB HEMATOLOGY METHOD 10/17/2024 11:54 AM EDT [facility] Sodium, Whole Blood 137 136 - 145 mmol/L LAB HEMATOLOGY METHOD 10/17/2024 11:54 AM EDT [facility] Potassium, Whole Blood 4.5 3.6 - 4.9 mmol/L LAB HEMATOLOGY METHOD 10/17/2024 11:54 AM EDT [facility] Chloride, Whole Blood 112(H) 97 - 107 mmol/L LAB HEMATOLOGY METHOD 10/17/2024 11:54 AM EDT [facility] Glucose, Whole Blood 201(H) 74 - 99 mg/dL LAB HEMATOLOGY METHOD 10/17/2024 11:54 AM EDT [facility] Ionized Calcium, Whole Blood 4.8 4.6 - 5.1 mg/dL LAB HEMATOLOGY METHOD 10/17/2024 11:54 AM EDT [facility] Lactate, Arterial, Whole Blood 2.3(H) 0.5 - 1.6 mmol/L LAB HEMATOLOGY METHOD 10/17/2024 11:54 AM EDT [facility] Blood Arterial blood specimen / Unknown Arterial Puncture / Unknown 10/17/2024 11:48 AM EDT 10/17/2024 11:53 AM EDT us Jenna Lopez FRONT OFFICE SPEC LAB BLOOD ORDERABLES Final Re sult [facility] [address] [place] [address] * POCT ACT (10/17/2024 11:41 AM EDT) ACT+ (HIGH RANGE) 175 68 - 600 Seconds 10/29/2024 7:[address] [facility] Wastewater Superintendent ID Oneyda Alicea 10/29/2024 7:28 AM EDT [facility] ACT Device ID [id number] 10/29/2024 7:28 AM EDT [facility] Comment 10/29/2024 7:28 AM EDT [facility] Comment: ACT performed by staff at [...] UNSOLICITED RESULTS Final Result Performing Organization Address City/[facility] Co de Phone Number HEALTHCARE LAB [address] LAB [address] [place] [address] * POCT ACT (10/17/2024 11:11 AM EDT) ACT+ (HIGH RANGE) 252 68 - 600 Seconds 10/29/2024 7:28 AM EDT [facility] Wastewater Superintendent ID Donna Mcmillan 10/29/2024 7:28 AM EDT [facility] ACT Device ID [id number] 10/29/2024 7:28 AM EDT [facility] Comment 10/29/2024 7:28 AM EDT [facility] Comment: ACT performed by staff at [...] UNSOLICITED RESULTS Final Result Performing Organization Address City/[facility]/ZIP Co de Phone Number [facility]ARE LAB [address] LAB [address] [place] [address] * (ABNORMAL) Blood gas, arterial (10/17/2024 10:46 AM EDT) pH, Arterial 7.35 7.31 - 7.42 LAB HEMATOLOGY METHOD 10/17/2024 10:56 AM EDT [facility] pCO2, Arterial 42 32 - 45 mmHg LAB HEMATOLOGY METHOD 10/17/2024 10:56 AM EDT [facility] pO2, Arterial 161 >80 mmHg LAB HEMATOLOGY METHOD 10/17/2024 10:56 AM EDT [facility] SO2, Measured, Arterial 100(H) 94 - 98 % LAB HEMATOLOGY METHOD 10/17/2024 10:56 AM EDT [facility] Base Excess, Arterial -2.2(L) -2.0 - 3.0 mmol/L LAB HEMATOLOGY METHOD 10/17/2024 10:56 AM EDT [facility] Bicarbonate, Calculated, Arterial 23 22 - 26 mmol/L LAB HEMATOLOGY METHOD 10/17/2024 10:56 AM EDT [facility] Hematocrit, Whole Blood 29.9(L) 40.0 - 51.0 % LAB HEMATOLOGY METHOD 10/17/2024 10:56 AM EDT [facility] Sodium, Whole Blood 138 136 - 145 mmol/L LAB HEMATOLOGY METHOD 10/17/2024 10:56 AM EDT [facility] Potassium, Whole Blood 4.0 3.6 - 4.9 mmol/L LAB HEMATOLOGY METHOD 10/17/2024 10:56 AM EDT [facility] Chloride, Whole Blood 110(H) 97 - 107 mmol/L LAB HEMATOLOGY METHOD 10/17/2024 10:56 AM EDT [facility] Glucose, Whole Blood 174(H) 74 - 99 mg/dL LAB HEMATOLOGY METHOD 10/17/2024 10:56 AM EDT [facility] Ionized Calcium, Whole Blood 5.1 4.6 - 5.1 mg/dL LAB HEMATOLOGY METHOD 10/17/2024 10:56 AM EDT [facility] Lactate, Arterial, Whole Blood 1.4 0.5 - 1.6 mmol/L LAB HEMATOLOGY METHOD 10/17/2024 10:56 AM EDT [facility] Blood Arterial blood specimen / Unknown Arterial Puncture / Unknown 10/17/2024 10:46 AM EDT 10/17/2024 10:54 AM EDT us Jenna Lopez FRONT OFFICE SPEC LAB BLOOD ORDERABLES Final Re sult Performing Organization Address City/[facility]/ZIP Co de Phone Number [facility] [address] [place] [address] * POCT ACT (10/17/2024 10:37 AM EDT) ACT+ (HIGH RANGE) 206 68 - 600 Seconds 10/29/2024 7:[address] [facility] Wastewater Superintendent ID Donna Mcmillan 10/29/2024 7:[address] [facility] ACT Device ID [id number] 10/29/2024 7:[address] [facility] Comment 10/29/2024 7:28 AM EDT [facility] Comment: ACT performed by staff at point [...] RESULTS Final Result Performing Organization Address [facility] Co de Phone Number [facility] [address] [place] [address] * Surgical Pathology Exam (10/17/2024 10:27 AM EDT) Case Report Surgical Pathology Case: [id number] Authorizing Provider: Terrell Gautam MD Collected: 10/17/2024 1027 Ordering Location: [facility] Received: 10/17/2024 1325 Pathologist: Haydee Osborne MD Specimen: Other (specify site), left common femoral plaque 10/21/2024 10:16 AM EDT [facility] Final Diagnosis A. LEFT COMMON FEMORAL PLAQUE, EXCISION: - CALCIFIED PLAQUE 10/21/2024 10:16 AM EDT [facility] at 1016 EDT Clinical Information Critical limb ischemia of left lower extremity [I70.222] 10/21/2024 10:16 AM EDT [facility] Gross Description A. LEFT COMMON FEMORAL PLAQUE Received in formalin labeled l eft common femoral plaque , is one aggregate of red-gabriel hard portions of plaque measuring 3.7 x 2.5 x 0.9 cm. The specimen is serially sectioned and provider service representative sections are submitted in cassette A1. Cold Time: <1m Kenia C Yola 10/21/2024 10:16 AM EDT [facility] Note: A resident was involved in the service. I attest I examined the relevant preparations for the specimens and confirmed the diagnosis or interpretation. 10/21/2024 10:16 AM EDT [facility] Tissue Topography unknown / Unknown 10/17/2024 10:27 AM EDT 10/17/2024 1:25 PM EDT Comment:Pre-op diagnosis: Critical limb ischemia of left lower extremity [I70.222] us Terrell Gautam MD LAB PATHOLOGY ORDERABLES Gwen grimaldo Result [facility] [address] [place] [id number] * POCT ACT (10/17/2024 10:03 AM EDT) ACT+ (HIGH RANGE) 244 68 - 600 Seconds 10/29/2024 7:[address] [facility] Wastewater Superintendent ID Donna Mcmillan 10/29/2024 7:[address] [facility] ACT Device ID [id number] 10/29/2024 7:[address] [facility] Comment 10/29/2024 7:28 AM EDT [facility] Comment: ACT performed by staff [...] DOCKED DEVICE UNSOLICITED RESULTS Final Result [facility] [address] LAB [address] [place] [address] * (ABNORMAL) Blood gas, arterial (10/17/2024 9:45 AM EDT) pH, Arterial 7.37 7.31 - 7.42 LAB HEMATOLOGY METHOD 10/17/2024 9:55 AM EDT [facility] pCO2, Arterial 43 32 - 45 mmHg LAB HEMATOLOGY METHOD 10/17/2024 9:55 AM EDT [facility] pO2, Arterial 177 >80 mmHg LAB HEMATOLOGY METHOD 10/17/2024 9:55 AM EDT [facility] SO2, Measured, Arterial 100(H) 94 - 98 % LAB HEMATOLOGY METHOD 10/17/2024 9:55 AM EDT [facility] Base Excess, Arterial -0.5 -2.0 - 3.0 mmol/L LAB HEMATOLOGY METHOD 10/17/2024 9:55 AM EDT [facility] Bicarbonate, Calculated, Arterial 25 22 - 26 mmol/L LAB HEMATOLOGY METHOD 10/17/2024 9:55 AM EDT [facility] Hematocrit, Whole Blood 30.0(L) 40.0 - 51.0 % LAB HEMATOLOGY METHOD 10/17/2024 9:55 AM EDT [facility] Sodium, Whole Blood 137 136 - 145 mmol/L LAB HEMATOLOGY METHOD 10/17/2024 9:55 AM EDT [facility] Potassium, Whole Blood 4.3 3.6 - 4.9 mmol/L LAB HEMATOLOGY METHOD 10/17/2024 9:55 AM EDT [facility] Chloride, Whole Blood 108(H) 97 - 107 mmol/L LAB HEMATOLOGY METHOD 10/17/2024 9:55 AM EDT [facility] Glucose, Whole Blood 191(H) 74 - 99 mg/dL LAB HEMATOLOGY METHOD 10/17/2024 9:55 AM EDT [facility] Ionized Calcium, Whole Blood 5.0 4.6 - 5.1 mg/dL LAB HEMATOLOGY METHOD 10/17/2024 9:55 AM EDT [facility] Lactate, Arterial, Whole Blood 1.3 0.5 - 1.6 mmol/L LAB HEMATOLOGY METHOD 10/17/2024 9:55 AM EDT [facility] Blood Arterial blood specimen / Unknown Arterial Line / Unknown 10/17/2024 9:45 AM EDT 10/17/2024 9:52 AM EDT us Jenna Lopez CRNA LAB BLOOD ORDERABLES Final Re sult [facility] [address] [place] [address] * (ABNORMAL) Blood gas, arterial (10/17/2024 8:47 AM EDT) pH, Arterial 7.37 7.31 - 7.42 LAB HEMATOLOGY METHOD 10/17/2024 8:59 AM EDT [facility] pCO2, Arterial 43 32 - 45 mmHg LAB HEMATOLOGY METHOD 10/17/2024 8:59 AM EDT [facility] pO2, Arterial 205 >80 mmHg LAB HEMATOLOGY METHOD 10/17/2024 8:59 AM EDT [facility] SO2, Measured, Arterial 100(H) 94 - 98 % LAB HEMATOLOGY METHOD 10/17/2024 8:59 AM EDT [facility] Base Excess, Arterial -0.3 -2.0 - 3.0 mmol/L LAB HEMATOLOGY METHOD 10/17/2024 8:59 AM EDT [facility] Bicarbonate, Calculated, Arterial 25 22 - 26 mmol/L LAB HEMATOLOGY METHOD 10/17/2024 8:59 AM EDT [facility] Hematocrit, Whole Blood 31.3(L) 40.0 - 51.0 % LAB HEMATOLOGY METHOD 10/17/2024 8:59 AM EDT [facility] Sodium, Whole Blood 138 136 - 145 mmol/L LAB HEMATOLOGY METHOD 10/17/2024 8:59 AM EDT [facility] Potassium, Whole Blood 4.0 3.6 - 4.9 mmol/L LAB HEMATOLOGY METHOD 10/17/2024 8:59 AM EDT [facility] Chloride, Whole Blood 108(H) 97 - 107 mmol/L LAB HEMATOLOGY METHOD 10/17/2024 8:59 AM EDT [facility] Glucose, Whole Blood 162(H) 74 - 99 mg/dL LAB HEMATOLOGY METHOD 10/17/2024 8:59 AM EDT [facility] Ionized Calcium, Whole Blood 5.2(H) 4.6 - 5.1 mg/dL LAB HEMATOLOGY METHOD 10/17/2024 8:59 AM EDT [facility] Lactate, Arterial, Whole Blood 1.7(H) 0.5 - 1.6 mmol/L LAB HEMATOLOGY METHOD 10/17/2024 8:59 AM EDT [facility] Blood Arterial blood specimen / Unknown Arterial Puncture / Unknown 10/17/2024 8:47 AM EDT 10/17/2024 8:58 AM EDT us Jenna Lopez CRNA LAB BLOOD ORDERABLES Final Re sult [facility] [address] [place] [address] * POCT ACT (10/17/2024 8:46 AM EDT) ACT+ (HIGH RANGE) 101 68 - 600 Seconds 10/29/2024 7:28 AM EDT HEALTHCARE LAB Wastewater Superintendent ID Donna Mcmillan 10/29/2024 7:28 AM EDT HEALTHCARE LAB ACT Device ID [id number] 10/29/2024 7:28 AM EDT HEALTHCARE LAB Comment 10/29/2024 7:28 AM EDT [facility] Comment: ACT performed by staff [...] RESULTS Final Result [facility] [address] LAB [address] [place] [address] * Type and Screen (10/17/2024 7:19 AM EDT) Pathologist [facility] ABO/Rh A Negative 10/17/2024 7:04 AM EDT BLOOD BANK Antibody Screen Negative 10/17/2024 7:04 AM EDT BLOOD BANK Specimen Expiration 10/20/2024 23:59 10/17/2024 7:04 AM EDT BLOOD BANK Blood Venous blood specimen / Unknown Venipuncture / Unknown 10/17/2024 7:19 AM EDT 10/17/2024 7:28 AM EDT Maria Fernanda Mccallum MD LAB BLOOD BANK TEST ORDERAB LES Final Result Performing Organization Address [facility] Co de Phone Number BLOOD BANK [address] [place] [address] * (ABNORMAL) POCT glucose meter (10/17/2024 6:44 [...] 10/17/2024 6:49 AM EDT [facility] Wastewater Superintendent ID Hunter Burroughs 10/18/19 6:49 AM EDT [facility] Device ID [id number] 10/17/2024 6:49 AM EDT [facility] Specimen Type POC Capillary 10/17/2024 6:49 AM EDT [facility] Blood Capillary blood specimen / Unknown 10/17/2024 6:44 AM EDT 10/17/2024 6:49 AM EDT us Terrell Gautam MD LAB POINT OF CARE TE ST DOCKED DEVICE UNSOLICITED RESULTS Final Result [facility] [address] [place] [address] documented in this encounter Visit Diagnoses Diagnosis [...] Recovery(Phase II-Outpatient)/On Unit(Inpatient) 1414 (Given - Provider: Kiesha Waller, CHRISTIAN)2012 (Given - Provider: Jourdan Grimes [...] documented as of this encounter Care Teams Hyster Machine Operator Relationship Specialty Start Date End Date Asad Victor MD [address] [place] [id number] PCP - General 10/07/22 documented as of this encounter
--- OUTSIDE RECORDS SUMMARY | 2024-11-05 21:45 | XMS_ITS | Encounter Summary ---
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 35.5 g/dL LAB HEMATOLOGY METHOD 11/13/2024 6:51 AM EDT [facility] RDW 13.6 11.5 - 14.5 % LAB HEMATOLOGY METHOD 11/13/2024 6:51 AM EDT [facility] MPV 8.9 8.8 - 12.5 fL LAB HEMATOLOGY METHOD 11/13/2024 6:51 AM EDT [facility] nRBC 0.0 <=0.0 per 100 WBCs LAB HEMATOLOGY METHOD 11/13/2024 6:51 AM EDT [facility] Blood Venous blood specimen / Unknown Venipuncture / Unknown 11/13/2024 6:37 AM EDT 11/13/2024 6:44 AM EDT us Nathaly Nowak MD LAB BLOOD ORDERABLES Final Resu lt [facility] [address] [place] [address] * (ABNORMAL) Basic Metabolic Panel, Plasma (11/13/2024 6:37 AM EDT) Glucose, Plasma 200(H) 74 - 99 mg/dL 11/13/2024 7:16 AM EDT [facility] BUN, Plasma 10 8 - 23 mg/dL 11/13/2024 7:16 AM EDT [facility] Creatinine, Plasma 0.68(L) 0.70 - 1.20 mg/dL 11/13/2024 7:16 AM EDT [facility] BUN/Creatinine Ratio 15 11/13/2024 7:16 AM EDT [facility] Sodium, Plasma 135(L) 136 - 145 mmol/L 11/13/2024 7:16 AM EDT [facility] Potassium, Plasma 3.9 3.6 - 4.9 mmol/L 11/13/2024 7:16 AM EDT [facility] Chloride, Plasma 107 97 - 107 mmol/L 11/13/2024 7:16 AM EDT [facility] CO2, Plasma 21(L) 22 - 29 mmol/L 11/13/2024 7:16 AM EDT [facility] Anion Gap 7 6 - 16 mmol/L 11/13/2024 7:16 AM EDT [facility] Total Calcium, Plasma 8.1(L) 8.9 - 10.2 mg/dL 11/13/2024 7:16 AM EDT [facility] eGFRcr 103.2 mL/min/1.7 3m*2 11/13/2024 7:16 AM EDT [facility] Comment:Reported eGFRcr in m L/min/1.73m2 is based the CKD-EPI 2020 equation that does not use a race coefficient. Blood Venous blood specimen / Unknown Venipuncture / Unknown 11/13/2024 6:37 AM EDT 11/13/2024 6:44 AM EDT us Nathaly Nowak MD LAB BLOOD ORDERABLES Final Resu lt Performing Organization Address [facility] Co de Phone Number [facility] [address] [place] [address] * (ABNORMAL) POCT glucose meter (11/12/2024 8:27 PM EDT) POCT Glucose 175(H) 74 - 99 mg/dL 11/12/2024 8:29 PM EDT [employer] [facility] Comment:Accuracy of a glucos e result [...] Comment 11/12/2024 8:29 PM EDT HEALTHCARE LAB [facility] Consultant ID Nelda Gerber 11/13/19 8:29 PM EDT HEALTHCARE LAB Device ID [id number] 11/12/2024 8:29 PM EDT HEALTHCARE LAB Specimen Type POC Capillary 11/12/2024 8:29 PM EDT HEALTHCARE LAB Blood Capillary blood specimen / Unknown 11/12/2024 8:27 PM EDT 11/12/2024 8:29 PM EDT us Nathaly Nowak MD LAB POINT OF CARE TE ST DOCKED DEVICE UNSOLICITED RESULTS Final Result Performing Organization Address City/[facility] Co de Phone Number HEALTHCARE LAB [address] [place] [address] * (ABNORMAL) POCT glucose meter (11/12/2024 5:08 PM EDT) [facility] POCT Glucose 157(H) 74 - 99 mg/dL [...] 11/12/2024 5:10 PM EDT [facility] Consultant ID Wade Feliciano 5:10 PM EDT [facility] Device ID [id number] 11/12/2024 5:10 PM EDT [facility] Specimen Type POC Capillary 11/12/2024 5:10 PM EDT HEALTHCARE LAB Blood Capillary blood specimen / Unknown 11/12/2024 5:08 PM EDT 11/12/2024 5:10 PM EDT Nathaly Nowak MD LAB POINT OF CARE TE ST DOCKED DEVICE UNSOLICITED RESULTS Final Result Performing Organization Address City/State/[facility] Co de Phone Number HEALTHCARE LAB [address] [place] [address] * (ABNORMAL) POCT glucose meter (11/12/2024 12:36 PM EDT) [facility] POCT Glucose 224(H) 74 - 99 mg/dL [...] 11/12/2024 12:38 PM EDT [facility] Consultant ID Wade Feliciano 12:38 PM EDT [facility] Device ID [id number] 11/12/2024 12:38 PM EDT [facility] Specimen Type POC Capillary 11/12/2024 12:38 PM EDT [facility] Blood Capillary blood specimen / Unknown 11/12/2024 12:36 PM EDT 11/12/2024 12:38 PM EDT Nathaly Nowak MD LAB POINT OF CARE TE ST DOCKED DEVICE UNSOLICITED RESULTS Final Result Performing Organization Address City/[facility]/ZIP Co de Phone Number HEALTHCARE LAB [address] [place] [address] * Clostridiodes (Clostridium) difficile PCR (11/12/2024 9:50 AM EDT) C difficile PCR toxin B gene DNA Result Not Detected Not Detected 11/12/2024 11:[address] [facility] Stool Rectum structure / Unknown Non-blood Collection / Unknown 11/12/2024 9:50 AM EDT 11/12/2024 10:04 AM EDT Narrative [facility] - 11/12/2024 11:54 AM [...] Nathaly Nowak MD LAB MICROBIOLOGY - [facility] Final Result [facility] [address] [place] [address] * Comprehensive GI Panel by PCR (11/12/2024 9:50 AM EDT) Campylobacter PCR Result Not Detected Not Detected 11/12/2024 2:47 PM EDT [facility] Plesiomonas shigelloides PCR Result Not Detected Not Detected 11/12/2024 2:47 PM EDT [facility] Salmonella PCR Result Not Detected Not Detected 11/12/2024 2:47 PM EDT [facility] Vibrio species PCR Result Not Detected Not Detected 11/12/2024 2:47 PM EDT [facility] Vibrio cholerae PCR Result Not Detected Not Detected 11/12/2024 2:47 PM EDT [facility] Yersinia enterocolitica PCR Result Not Detected Not Detected 11/12/2024 2:47 PM EDT [facility] Enteroaggregative E. coli (EAEC) PCR Result Not Detected Not Detected 11/12/2024 2:47 PM EDT [facility] Enteropathogenic E. coli (EPEC) PCR Result Not Detected Not Detected 11/12/2024 2:47 PM EDT [facility] Enterotoxigenic E. coli (ETEC) lt/st PCR Result Not Detected Not Detected 11/12/2024 2:47 PM EDT [facility] Shiga-like Toxin-Producing E.coli (STEC) stx1/stx2 PCR Resu Not Detected Not Detected 11/12/2024 2:47 PM EDT [facility] E coli 0157 PCR Result Not Detected Not Detected 11/12/2024 2:47 PM EDT [facility] Shigella/Enteroinvas tam E. coli (EIEC) PCR Result Not Detected Not Detected 11/12/2024 2:47 PM EDT [facility] Cryptosporidium PCR Result Not Detected Not Detected 11/12/2024 2:47 PM EDT [facility] Cyclospora cayetanensis PCR Result Not Detected Not Detected 11/12/2024 2:47 PM EDT [facility] Entamoeba histolytica PCR Result Not Detected Not Detected 11/12/2024 2:47 PM EDT [facility] Giardia duodenalis (aka Giardia lamblia) PCR Result Not Detected Not Detected 11/12/2024 2:47 PM EDT [facility] Adenovirus F 40/41 PCR Result Not Detected Not Detected 11/12/2024 2:47 PM EDT [facility] Astrovirus PCR Result Not Detected Not Detected 11/12/2024 2:47 PM EDT [facility] Norovirus GI/GII PCR Result Not Detected Not Detected 11/12/2024 2:47 PM EDT [facility] Rotavirus A PCR Result Not Detected Not Detected 11/12/2024 2:47 PM EDT [facility] Sapovirus PCR Result Not Detected Not Detected 11/12/2024 2:[address] [facility] Stool Rectum structure / Unknown Non-blood Collection / Unknown 11/12/2024 9:50 AM EDT 11/12/2024 10:04 AM EDT Narrative [facility] - 11/12/2024 2:47 PM [...] us Nathaly Nowak MD LAB MICROBIOLOGY - [facility] Final Result Performing Organization Address City/[facility]/ZIP Co de Phone Number [facility] [address] [place] [address] * C-reactive protein (11/12/2024 9:48 AM EDT) CRP, Plasma <3.0 <=8.0 mg/L 11/12/2024 10:[address] [facility] Blood Venous blood specimen / Unknown Venipuncture / Unknown 11/12/2024 9:48 AM EDT 11/12/2024 9:59 AM EDT Narrative [facility] - 11/12/2024 10:28 AM EDT This CRP test is appropriate for assessment of infection, systemic inflammation and/or tissue injury. To assess cardiovascular disease risk order high sensitivity CRP (CRPH). us Nathaly Nowak MD LAB BLOOD ORDERABLES Final [facility]u lt [facility] [address] [place] [address] * (ABNORMAL) POCT glucose meter (11/12/2024 8:20 AM EDT) [facility] POCT Glucose 138(H) 74 - 99 mg/dL [...] Comment 11/12/2024 8:21 AM EDT HEALTHCARE LAB [facility] Consultant ID Wade Feliciano 8:21 AM EDT [facility] Device ID [id number] 11/12/2024 8:21 AM EDT HEALTHCARE LAB Specimen Type POC Capillary 11/12/2024 8:21 AM EDT [employer] [facility] Blood Capillary blood specimen / Unknown 11/12/2024 8:20 AM EDT 11/12/2024 8:21 AM EDT Nathaly Nowak MD LAB POINT OF CARE TE ST DOCKED DEVICE UNSOLICITED RESULTS Final Result [facility] [address] [place] [address] * (ABNORMAL) POCT glucose meter (11/11/2024 8:18 PM EDT) [facility] POCT Glucose 248(H) 74 - 99 mg/dL [...] 11/11/2024 8:20 PM EDT [facility] Consultant ID eNlda Gerber 11/12/19 8:20 PM EDT [facility] Device ID [id number] 11/11/2024 8:20 PM EDT HEALTHCARE LAB Specimen Type POC Capillary 11/11/2024 8:20 PM EDT HEALTHCARE LAB Blood Capillary blood specimen / Unknown 11/11/2024 8:18 PM EDT 11/11/2024 8:20 PM EDT Nathaly Nowak MD LAB POINT OF CARE TE ST DOCKED DEVICE UNSOLICITED RESULTS Final Result Performing Organization Address City/[facility] Co de Phone Number [facility] [address] [place] [address] * (ABNORMAL) POCT glucose meter (11/11/2024 5:59 [...] 11/11/2024 6:01 PM EDT [facility] Consultant ID Wade Feliciano Tobias 6:01 PM EDT HEALTHCARE LAB Device ID [id number] 11/11/2024 6:01 PM EDT HEALTHCARE LAB Specimen Type POC Capillary 11/11/2024 6:01 PM EDT HEALTHCARE LAB Blood Capillary blood specimen / Unknown 11/11/2024 5:59 PM EDT 11/11/2024 6:01 PM EDT us Nathaly Nowak MD LAB POINT OF CARE TE ST DOCKED DEVICE UNSOLICITED RESULTS Final Result Performing Organization Address City/[facility] Co de Phone Number HEALTHCARE LAB [address] [place] [address] * POCT glucose meter (11/11/2024 5:20 PM [...] Comment 11/11/2024 5:22 PM EDT HEALTHCARE LAB [facility] Consultant ID Wade Feliciano 5:22 PM EDT HEALTHCARE LAB Device ID [id number] 11/11/2024 5:22 PM EDT HEALTHCARE LAB Specimen Type POC Capillary 11/11/2024 5:22 PM EDT HEALTHCARE LAB Blood Capillary blood specimen / Unknown 11/11/2024 5:20 PM EDT 11/11/2024 5:22 PM EDT us Nathaly Nowak MD LAB POINT OF CARE TE ST DOCKED DEVICE UNSOLICITED RESULTS Final Result Performing Organization Address City/State/[facility] Co de Phone Number HEALTHCARE LAB [address] [place] [address] * [place] NEGATIVE PRESSURE WOUND THERAPY DME >50 SQ [...] POCT glucose meter (11/11/2024 12:08 PM EDT) [facility] POCT Glucose 226(H) 74 - 99 mg/dL [...] Comment 11/11/2024 12:10 PM EDT HEALTHCARE LAB [facility] Consultant ID Wade Feliciano 12:10 PM EDT HEALTHCARE LAB Device ID [id number] 11/11/2024 12:10 PM EDT HEALTHCARE LAB Specimen Type POC Capillary 11/11/2024 12:10 PM EDT [employer] [facility] Blood Capillary blood specimen / Unknown 11/11/2024 12:08 PM EDT 11/11/2024 12:10 PM EDT us Nathaly Nowak MD LAB POINT OF CARE TE ST DOCKED DEVICE UNSOLICITED RESULTS Final Result Performing Organization Address City/State/[facility] Co de Phone Number HEALTHCARE LAB [address] [place] [address] * (ABNORMAL) POCT glucose meter (11/11/2024 9:08 AM EDT) [facility] POCT Glucose 162(H) 74 - 99 mg/dL [...] 11/11/2024 9:09 AM EDT [facility] Consultant ID Wade Feliciano 9:09 AM EDT HEALTHCARE LAB Device ID [id number] 11/11/2024 9:09 AM EDT HEALTHCARE LAB Specimen Type POC Capillary 11/11/2024 9:09 AM EDT HEALTHCARE LAB Blood Capillary blood specimen / Unknown 11/11/2024 9:08 AM EDT 11/11/2024 9:09 AM EDT Nathaly Nowak MD LAB POINT OF CARE TE ST DOCKED DEVICE UNSOLICITED RESULTS Final Result Performing Organization Address [facility] Co de Phone Number [facility] [address] [place] [address] * POCT glucose meter (11/11/2024 8:27 AM [...] Comment 11/11/2024 8:28 AM EDT HEALTHCARE LAB [facility] Consultant ID Wade Feliciano 8:28 AM EDT HEALTHCARE LAB Device ID [id number] 11/11/2024 8:28 AM EDT [employer] [facility] Specimen Type POC Capillary 11/11/2024 8:28 AM EDT [facility] Blood Capillary blood specimen / Unknown 11/11/2024 8:27 AM EDT 11/11/2024 8:28 AM EDT Nathaly Nowak MD LAB POINT OF CARE TE ST DOCKED DEVICE UNSOLICITED RESULTS Final Result Performing Organization Address City/[facility] Co de Phone Number HEALTHCARE LAB [address] [place] [address] * (ABNORMAL) Basic Metabolic Panel, Plasma (11/11/2024 1:12 AM EDT) Glucose, Plasma 122(H) 74 - 99 mg/dL 11/11/2024 1:12 AM EDT [facility] BUN, Plasma 10 8 - 23 mg/dL 11/11/2024 1:12 AM EDT [facility] Creatinine, Plasma 0.82 0.70 - 1.20 mg/dL 11/11/2024 1:12 AM EDT [facility] BUN/Creatinine Ratio 12 11/11/2024 1:12 AM EDT [facility] Sodium, Plasma 137 136 - 145 mmol/L 11/11/2024 1:12 AM EDT [facility] Potassium, Plasma 3.9 3.6 - 4.9 mmol/L 11/11/2024 1:12 AM EDT [facility] Chloride, Plasma 110(H) 97 - 107 mmol/L 11/11/2024 1:12 AM EDT [facility] CO2, Plasma 20(L) 22 - 29 mmol/L 11/11/2024 1:12 AM EDT [facility] Anion Gap 7 6 - 16 mmol/L 11/11/2024 1:12 AM EDT [facility] Total Calcium, Plasma 7.6(L) 8.9 - 10.2 mg/dL 11/11/2024 1:12 AM EDT [facility] eGFRcr 97.5 mL/min/1.7 3m*2 11/11/2024 1:12 AM EDT [facility] Comment:Reported eGFRcr in m L/min/1.73m2 is based the CKD-EPI 2020 equation that does not use a race coefficient. Blood Venous blood specimen / Unknown 11/11/2024 12:42 AM EDT us Nathaly Nowak MD LAB BLOOD ORDERABLES Final Resu lt [facility] [address] [place] [address] * (ABNORMAL) CBC W/O Differential (11/11/2024 12:56 AM EDT) WBC Count 11.83(H) 3.70 - 10.30 10*3/uL LAB HEMATOLOGY METHOD 11/11/2024 12:56 AM EDT [facility] RBC Count 2.97(L) 4.60 - 6.10 10*6/uL LAB HEMATOLOGY METHOD 11/11/2024 12:56 AM EDT [facility] HGB 8.9(L) 13.7 - 17.5 g/dL LAB HEMATOLOGY METHOD 11/11/2024 12:56 AM EDT [facility] HCT 27.2(L) 40.0 - 51.0 % LAB HEMATOLOGY METHOD 11/11/2024 12:56 AM EDT [facility] Platelet Count 444(H) 155 - 369 10*3/uL LAB HEMATOLOGY METHOD 11/11/2024 12:56 AM EDT [facility] MCV 92 79 - 98 fL LAB HEMATOLOGY METHOD 11/11/2024 12:56 AM EDT [facility] MCH 30.0 26.0 - 32.0 pg LAB HEMATOLOGY METHOD 11/11/2024 12:56 AM EDT [facility] MCHC 32.7 30.7 - 35.5 g/dL LAB HEMATOLOGY METHOD 11/11/2024 12:56 AM EDT [facility] RDW 13.3 11.5 - 14.5 % LAB HEMATOLOGY METHOD 11/11/2024 12:56 AM EDT [facility] MPV 9.0 8.8 - 12.5 fL LAB HEMATOLOGY METHOD 11/11/2024 12:56 AM EDT [facility] nRBC 0.0 <=0.0 per 100 WBCs LAB HEMATOLOGY METHOD 11/11/2024 12:56 AM EDT [facility] Blood Venous blood specimen / Unknown 11/11/2024 12:42 AM EDT us Nathaly Nowak MD LAB BLOOD ORDERABLES Final Resu lt [facility] [address] [place] [address] * (ABNORMAL) POCT glucose meter (11/10/2024 8:25 PM EDT) POCT Glucose 144(H) 74 - 99 mg/dL 11/10/2024 8:28 PM EDT [facility] Comment:Accuracy of a glucos e [...] 11/10/2024 8:28 PM EDT [facility] Consultant ID Nelda Gerber 11/11/19 8:28 PM EDT [facility] Device ID [id number] 11/10/2024 8:28 PM EDT [facility] Specimen Type POC Capillary 11/10/2024 8:28 PM EDT HEALTHCARE LAB Blood Capillary blood specimen / Unknown 11/10/2024 8:25 PM EDT 11/10/2024 8:28 PM EDT us Nathaly Nowak MD LAB POINT OF CARE TE ST DOCKED DEVICE UNSOLICITED RESULTS Final Result Performing Organization Address [facility] de Phone Number HEALTHCARE LAB [address] [place] [address] * (ABNORMAL) POCT glucose meter (11/10/2024 4:45 PM EDT) [facility] Signature POCT Glucose 155(H) 74 - [...] 11/10/2024 4:47 PM EDT [facility] Consultant ID Esperanza Parks 11/10/2024 4:47 PM EDT HEALTHCARE LAB Device ID [id number] 11/10/2024 4:47 PM EDT HEALTHCARE LAB Specimen Type POC Capillary 11/10/2024 4:47 PM EDT HEALTHCARE LAB Blood Capillary blood specimen / Unknown 11/10/2024 4:45 PM EDT 11/10/2024 4:47 PM EDT us Nathaly Nowak MD LAB POINT OF CARE TE ST DOCKED DEVICE UNSOLICITED RESULTS Final Result Performing Organization Address City/[facility] Co de Phone Number [facility] [address] [place] [address] * (ABNORMAL) POCT glucose meter (11/10/2024 12:13 [...] Comment 11/10/2024 12:14 PM EDT HEALTHCARE LAB [employer] Consultant ID Esperanza Parks 11/10/2024 12:14 PM EDT HEALTHCARE LAB Device ID [id number] 11/10/2024 12:14 PM EDT HEALTHCARE LAB Specimen Type POC Capillary 11/10/2024 12:14 PM EDT [facility] Blood Capillary blood specimen / Unknown 11/10/2024 12:13 PM EDT 11/10/2024 12:14 PM EDT us Nathaly Nowak MD LAB POINT OF CARE TE ST DOCKED DEVICE UNSOLICITED RESULTS Final Result [facility] [address] [place] [address] * Vancomycin, Peak, Plasma Please draw ~2 hours after 0800 dose of vancomycin finishes infusing. Consider obtaining level via peripheral stick. If peripheral stick is not feasible, please ensure that line is flushed well prior to drawing level. Than... (11/10/2024 10:56 AM EDT) Pathologist [facility] Vancomycin, Peak, Plasma 23.8 20.0 - 40.0 ug/mL 11/10/2024 11:25 AM EDT [facility] Blood Venous blood specimen / Unknown Venipuncture / Unknown 11/10/2024 10:56 AM EDT 11/10/2024 11:00 AM EDT Narrative [facility] - 11/10/2024 11:25 AM EDT Therapeutic Peak level: 20-40ug/mL Supra-therapeutic Peak level: >40 ug/mL us Abigail Seay MD LAB BLOOD ORDERABLES Final Res ult [facility] [address] [place] [address] * (ABNORMAL) POCT glucose meter (11/10/2024 8:03 [...] Comment 11/10/2024 8:04 AM EDT [facility] Consultant ID Esperanza Parks 11/10/2024 8:04 AM EDT [employer] LAB Device ID [id number] 11/10/2024 8:04 AM EDT [facility] Specimen Type POC Capillary 11/10/2024 8:04 AM EDT [facility] Blood Capillary blood specimen / Unknown 11/10/2024 8:03 AM EDT 11/10/2024 8:04 AM EDT us Nathaly Nowak MD LAB POINT OF CARE TE ST DOCKED DEVICE UNSOLICITED RESULTS Final Result Performing Organization Address City/[facility]/ZIP Co de Phone Number [facility] [address] [place] [address] * Vancomycin, Trough, Plasma Please draw ~30 [...] AM EDT 11/10/2024 7:51 AM EDT Narrative [facility] - 11/10/2024 8:24 AM EDT Therapeutic Trough level: 10-20ug/mL Supra-therapeutic Trough level: >20 ug/mL us Abigail Seay MD LAB BLOOD ORDERABLES Final Res ult [facility] [address] [place] [address] * (ABNORMAL) CBC and Differential (11/10/2024 12:31 AM EDT) WBC Count 10.80(H) 3.70 - 10.30 10*3/uL LAB HEMATOLOGY METHOD 11/10/2024 12:53 AM EDT [facility] [facility] RBC Count 3.06(L) 4.60 - 6.10 10*6/uL LAB HEMATOLOGY METHOD 11/10/2024 12:53 AM EDT [facility] HGB 9.1(L) 13.7 - 17.5 g/dL LAB HEMATOLOGY METHOD 11/10/2024 12:53 AM EDT [facility] HCT 28.0(L) 40.0 - 51.0 % LAB HEMATOLOGY METHOD 11/10/2024 12:53 AM EDT [facility] Platelet Count 501(H) 155 - 369 10*3/uL LAB HEMATOLOGY METHOD 11/10/2024 12:53 AM EDT [facility] MCV 92 79 - 98 fL LAB HEMATOLOGY METHOD 11/10/2024 12:53 AM EDT [facility] MCH 29.7 26.0 - 32.0 pg LAB HEMATOLOGY METHOD 11/10/2024 12:53 AM EDT [facility] MCHC 32.5 30.7 - 35.5 g/dL LAB HEMATOLOGY METHOD 11/10/2024 12:53 AM EDT [facility] RDW 13.2 11.5 - 14.5 % LAB HEMATOLOGY METHOD 11/10/2024 12:53 AM EDT [facility] MPV 8.8 8.8 - 12.5 fL LAB HEMATOLOGY METHOD 11/10/2024 12:53 AM EDT [facility] nRBC 0.0 <=0.0 per 100 WBCs LAB HEMATOLOGY METHOD 11/10/2024 12:53 AM EDT [facility] Differential Type Automated LAB HEMATOLOGY METHOD 11/10/2024 12:53 AM EDT [facility] Neutrophils % 77 % LAB HEMATOLOGY METHOD 11/10/2024 12:53 AM EDT [facility] Lymphocytes % 13 % LAB HEMATOLOGY METHOD 11/10/2024 12:53 AM EDT [facility] Monocytes % 8 % LAB HEMATOLOGY METHOD 11/10/2024 12:53 AM EDT [facility] Eosinophils % 1 % LAB HEMATOLOGY METHOD 11/10/2024 12:53 AM EDT [facility] Basophils % 0 % LAB HEMATOLOGY METHOD 11/10/2024 12:53 AM EDT [facility] Immature Granulocytes % 1 % LAB HEMATOLOGY METHOD 11/10/2024 12:53 AM EDT [facility] Neutrophils Absolute 8.32(H) 1.60 - 6.10 10*3/uL LAB HEMATOLOGY METHOD 11/10/2024 12:53 AM EDT [facility] Lymphocytes Absolute 1.40 1.20 - 3.90 10*3/uL LAB HEMATOLOGY METHOD 11/10/2024 12:53 AM EDT [facility] Monocytes Absolute 0.89 0.30 - 0.90 10*3/uL LAB HEMATOLOGY METHOD 11/10/2024 12:53 AM EDT [facility] Eosinophils Absolute 0.09 0.00 - 0.50 10*3/uL LAB HEMATOLOGY METHOD 11/10/2024 12:53 AM EDT [facility] Basophils Absolute 0.04 0.00 - 0.10 10*3/uL LAB HEMATOLOGY METHOD 11/10/2024 12:53 AM EDT [facility] Immature Granulocytes Absolute 0.06 0.00 - 0.06 10*3/uL LAB HEMATOLOGY METHOD 11/10/2024 12:53 AM EDT [facility] Blood Venous blood specimen / Unknown Venipuncture / Unknown 11/10/2024 12:31 AM EDT 11/10/2024 12:37 [facility] 11/10/[facility] 12:53 AM EDT Therapeutic decision making should be based on absolute values, rather than percentages. us Nathaly Nowak MD LAB BLOOD ORDERABLES Final Resu lt [facility] [address] [place] [address] * (ABNORMAL) Comprehensive Metabolic Panel, Plasma (11/10/2024 12:31 AM EDT) Glucose, Plasma 185(H) 74 - 99 mg/dL 11/10/2024 1:05 AM EDT [facility] BUN, Plasma 9 8 - 23 mg/dL 11/10/2024 1:05 AM EDT [facility] Creatinine, Plasma 0.72 0.70 - 1.20 mg/dL 11/10/2024 1:05 AM EDT [facility] BUN/Creatinine Ratio 13 11/10/2024 1:05 AM EDT [facility] Sodium, Plasma 135(L) 136 - 145 mmol/L 11/10/2024 1:05 AM EDT [facility] Potassium, Plasma 4.0 3.6 - 4.9 mmol/L 11/10/2024 1:05 AM EDT [facility] Chloride, Plasma 106 97 - 107 mmol/L 11/10/2024 1:05 AM EDT [facility] CO2, Plasma 19(L) 22 - 29 mmol/L 11/10/2024 1:05 AM EDT [facility] Anion Gap 10 6 - 16 mmol/L 11/10/2024 1:05 AM EDT [facility] Total Calcium, Plasma 7.8(L) 8.9 - 10.2 mg/dL 11/10/2024 1:05 AM EDT [facility] Total Protein 5.6(L) 6.3 - 7.9 g/dL 11/10/2024 1:05 AM EDT [facility] Albumin, Plasma 3.1(L) 3.5 - 5.2 g/dL 11/10/2024 1:05 AM EDT [facility] AST, Plasma 33 10 - 50 U/L 11/10/2024 1:05 AM EDT [facility] ALT, Plasma 25 10 - 50 U/L 11/10/2024 1:05 AM EDT [facility] Alkaline Phosphatase, Plasma 108 40 - 115 U/L 11/10/2024 1:05 AM EDT [facility] Total Bilirubin, Plasma <0.2(L) 0.2 - 1.1 mg/dL 11/10/2024 1:05 AM EDT [facility] eGFRcr 101.4 mL/min/1.7 3m*2 11/10/2024 1:05 AM EDT [facility] Comment:Reported eGFRcr in m L/min/1.73m2 is based the CKD-EPI 2020 equation that does not use a race coefficient. Blood Venous blood specimen / Unknown Venipuncture / Unknown 11/10/2024 12:31 AM EDT 11/10/2024 12:37 AM EDT us Nathaly Nowak MD LAB BLOOD ORDERABLES Final Resu lt [facility] [address] [place] [address] * (ABNORMAL) POCT glucose meter (11/09/2024 8:04 [...] Comment 11/09/2024 8:06 PM EDT [facility] Consultant ID Maximiliano Hansen II 11/09/2024 8:06 PM EDT [facility] Device ID [id number] 11/09/2024 8:06 PM EDT [facility] Specimen Type POC Capillary 11/09/2024 8:06 PM EDT [facility] Blood Capillary blood specimen / Unknown 11/09/2024 8:04 PM EDT 11/09/2024 8:06 PM EDT Nathaly Nowak MD LAB POINT OF CARE TE ST DOCKED DEVICE UNSOLICITED RESULTS Final Result Performing Organization Address [facility] de Phone Number [facility] [address] [place] [address] * (ABNORMAL) POCT glucose meter (11/09/2024 4:36 [...] Comment 11/09/2024 4:38 PM EDT [facility] Consultant ID Kristian Sosa 11/09/2024 4:38 PM EDT [facility] Device ID [id number] 11/09/2024 4:38 PM EDT [facility] Specimen Type POC Capillary 11/09/2024 4:38 PM EDT [facility] Blood Capillary blood specimen / Unknown 11/09/2024 4:36 PM EDT 11/09/2024 4:38 PM EDT us Nathaly Nowak MD LAB POINT OF CARE TE ST DOCKED DEVICE UNSOLICITED RESULTS Final Result Performing Organization Address City/[facility] Co de Phone Number [facility] [address] [place] [address] * PICC SINGLE LUMEN ([employer] L[employer]) (11/09/2024 1:11 PM EDT) Narrative Estefani Barraza RN - 11/09/2024 1:11 PM EDT Estefani Barraza RN 11/09/2024 1:12 PM Insert PICC line Date/Time: 11/09/2024 1:11 PM Performed by: Estefani Barraza RN Authorized by: Nathaly Nowak MD [place] Protocol: Verbal consent obtained?: Yes Written consent [...] selection rationale: Left pacemaker Catheter Lot #: [id number] Catheter behavioral health consultant: [employer] Catheter placed: Single lumen Catheter size: 4 [...] - 99 mg/dL 11/09/2024 11:51 AM EDT [facility] Comment:Accuracy of a glucos e result [...] 11/09/2024 11:51 AM EDT [facility] Consultant Kristian Greco 11/09/2024 11:51 AM EDT [facility] Device ID [id number] 11/09/2024 11:51 AM EDT [facility] Specimen Type POC Capillary 11/09/2024 11:51 AM EDT [facility] Blood Capillary blood specimen / Unknown 11/09/2024 11:50 AM EDT 11/09/2024 11:51 AM EDT Nathaly Nowak MD LAB POINT OF CARE TE ST DOCKED DEVICE UNSOLICITED RESULTS Final Result Performing Organization Address City/[facility]/ZIP Co de Phone Number [facility] [address] [place] [address] * (ABNORMAL) POCT glucose meter (11/09/2024 8:14 AM EDT) [facility] POCT Glucose 153(H) 74 - 99 mg/dL [...] Comment 11/09/2024 8:15 AM EDT [facility] Consultant ID Kristian Sosa 11/09/2024 8:15 AM EDT [facility] Device ID [id number] 11/09/2024 8:15 AM EDT [facility] Specimen Type POC Capillary 11/09/2024 8:15 AM EDT [facility] Blood Capillary blood specimen / Unknown 11/09/2024 8:14 AM EDT 11/09/2024 8:15 AM EDT us Nathaly Nowak MD LAB POINT OF CARE TE ST DOCKED DEVICE UNSOLICITED RESULTS Final Result Performing Organization Address City/[facility]/ZIP Co de Phone Number [facility] [address] [place] [address] * (ABNORMAL) CBC and Differential (11/09/2024 4:15 AM EDT) [facility] WBC Count 10.27 3.70 - 10.30 10*3/uL LAB HEMATOLOGY METHOD 11/09/2024 4:26 AM EDT [facility] RBC Count 3.14(L) 4.60 - 6.10 10*6/uL LAB HEMATOLOGY METHOD 11/09/2024 4:26 AM EDT [facility] HGB 9.2(L) 13.7 - 17.5 g/dL LAB HEMATOLOGY METHOD 11/09/2024 4:26 AM EDT [facility] HCT 28.3(L) 40.0 - 51.0 % LAB HEMATOLOGY METHOD 11/09/2024 4:26 AM EDT [facility] Platelet Count 468(H) 155 - 369 10*3/uL LAB HEMATOLOGY METHOD 11/09/2024 4:26 AM EDT [facility] MCV 90 79 - 98 fL LAB HEMATOLOGY METHOD 11/09/2024 4:26 AM EDT [facility] MCH 29.3 26.0 - 32.0 pg LAB HEMATOLOGY METHOD 11/09/2024 4:26 AM EDT [facility] MCHC 32.5 30.7 - 35.5 g/dL LAB HEMATOLOGY METHOD 11/09/2024 4:26 AM EDT [facility] RDW 13.1 11.5 - 14.5 % LAB HEMATOLOGY METHOD 11/09/2024 4:26 AM EDT [facility] MPV 8.7(L) 8.8 - 12.5 fL LAB HEMATOLOGY METHOD 11/09/2024 4:26 AM EDT [facility] nRBC 0.0 <=0.0 per 100 WBCs LAB HEMATOLOGY METHOD 11/09/2024 4:26 AM EDT [facility] Differential Type Automated LAB HEMATOLOGY METHOD 11/09/2024 4:26 AM EDT [facility] Neutrophils % 77 % LAB HEMATOLOGY METHOD 11/09/2024 4:26 AM EDT [facility] Lymphocytes % 13 % LAB HEMATOLOGY METHOD 11/09/2024 4:26 AM EDT [facility] Monocytes % 8 % LAB HEMATOLOGY METHOD 11/09/2024 4:26 AM EDT [facility] Eosinophils % 1 % LAB HEMATOLOGY METHOD 11/09/2024 4:26 AM EDT [facility] Basophils % 0 % LAB HEMATOLOGY METHOD 11/09/2024 4:26 AM EDT [facility] Immature Granulocytes % 1 % LAB HEMATOLOGY METHOD 11/09/2024 4:26 AM EDT [facility] Neutrophils Absolute 7.97(H) 1.60 - 6.10 10*3/uL LAB HEMATOLOGY METHOD 11/09/2024 4:26 AM EDT [facility] Lymphocytes Absolute 1.32 1.20 - 3.90 10*3/uL LAB HEMATOLOGY METHOD 11/09/2024 4:26 AM EDT [facility] Monocytes Absolute 0.83 0.30 - 0.90 10*3/uL LAB HEMATOLOGY METHOD 11/09/2024 4:26 AM EDT [facility] Eosinophils Absolute 0.07 0.00 - 0.50 10*3/uL LAB HEMATOLOGY METHOD 11/09/2024 4:26 AM EDT [facility] Basophils Absolute 0.03 0.00 - 0.10 10*3/uL LAB HEMATOLOGY METHOD 11/09/2024 4:26 AM EDT [facility] Immature Granulocytes Absolute 0.05 0.00 - 0.06 10*3/uL LAB HEMATOLOGY METHOD 11/09/2024 4:26 AM EDT [facility] Blood Venous blood specimen / Unknown Venipuncture / Unknown 11/09/2024 4:15 AM EDT 11/09/2024 4:18 AM EDT Narrative [facility] - 11/09/2024 4:26 AM EDT Therapeutic decision making should be based on absolute values, rather than percentages. us Nathaly Nowak MD LAB BLOOD ORDERABLES Final Resu lt [facility] [address] [place] [address] * (ABNORMAL) Comprehensive Metabolic Panel, Plasma (11/09/2024 4:15 AM EDT) Glucose, Plasma 171(H) 74 - 99 mg/dL 11/09/2024 4:47 AM EDT [facility] BUN, Plasma 9 8 - 23 mg/dL 11/09/2024 4:47 AM EDT [facility] Creatinine, Plasma 0.67(L) 0.70 - 1.20 mg/dL 11/09/2024 4:47 AM EDT [facility] BUN/Creatinine Ratio 13 11/09/2024 4:47 AM EDT [facility] Sodium, Plasma 134(L) 136 - 145 mmol/L 11/09/2024 4:47 AM EDT [facility] Potassium, Plasma 4.1 3.6 - 4.9 mmol/L 11/09/2024 4:47 AM EDT [facility] Chloride, Plasma 104 97 - 107 mmol/L 11/09/2024 4:47 AM EDT [facility] CO2, Plasma 21(L) 22 - 29 mmol/L 11/09/2024 4:47 AM EDT [facility] Anion Gap 9 6 - 16 mmol/L 11/09/2024 4:47 AM EDT [facility] Total Calcium, Plasma 8.4(L) 8.9 - 10.2 mg/dL 11/09/2024 4:47 AM EDT [facility] Total Protein 5.8(L) 6.3 - 7.9 g/dL 11/09/2024 4:47 AM EDT [facility] Albumin, Plasma 3.2(L) 3.5 - 5.2 g/dL 11/09/2024 4:47 AM EDT [facility] AST, Plasma 18 10 - 50 U/L 11/09/2024 4:47 AM EDT [facility] ALT, Plasma 17 10 - 50 U/L 11/09/2024 4:47 AM EDT [facility] Alkaline Phosphatase, Plasma 110 40 - 115 U/L 11/09/2024 4:47 AM EDT [facility] Total Bilirubin, Plasma <0.2(L) 0.2 - 1.1 mg/dL 11/09/2024 4:47 AM EDT [facility] eGFRcr 103.6 mL/min/1.7 3m*2 11/09/2024 4:47 AM EDT [facility] Comment:Reported eGFRcr in m L/min/1.73m2 is based the CKD-EPI 2020 equation that does not use a race coefficient. Blood Venous blood specimen / Unknown Venipuncture / Unknown 11/09/2024 4:15 AM EDT 11/09/2024 4:18 AM EDT Nathaly Nowak MD LAB BLOOD ORDERABLES Final Resu lt Performing Organization Address City/[facility] Co de Phone Number [facility] [address] [place] [address] * (ABNORMAL) POCT glucose meter (11/09/2024 3:30 [...] for testing. Comment 11/09/2024 3:31 AM EDT [facility] Consultant ID Maximiliano Hansen II 11/09/2024 3:31 AM EDT HEALTHCARE LAB Device ID [id number] 11/09/2024 3:31 AM EDT [facility] Specimen Type POC Capillary 11/09/2024 3:31 AM EDT [facility] Blood Capillary blood specimen / Unknown 11/09/2024 3:30 AM EDT 11/09/2024 3:31 AM EDT Nathaly Nowak MD LAB POINT OF CARE TE ST DOCKED DEVICE UNSOLICITED RESULTS Final Result Performing Organization Address City/[facility]/ZIP Co de Phone Number [facility] [address] [place] [address] * (ABNORMAL) POCT glucose meter (11/08/2024 7:21 [...] Comment 11/08/2024 7:22 PM EDT [facility] Consultant ID Maximiliano Hansen II 11/08/2024 7:22 PM EDT [facility] Device ID [id number] 11/08/2024 7:22 PM EDT [facility] Specimen Type POC Capillary 11/08/2024 7:22 PM EDT [facility] Blood Capillary blood specimen / Unknown 11/08/2024 7:21 PM EDT 11/08/2024 7:22 PM EDT Nathaly Nowak MD LAB POINT OF CARE TE ST DOCKED DEVICE UNSOLICITED RESULTS Final Result Performing Organization Address City/State/[facility] Co de Phone Number [facility] [address] [place] [address] * (ABNORMAL) POCT glucose meter (11/08/2024 5:12 PM EDT) [facility] POCT [...] Comment 11/08/2024 5:14 PM EDT [facility] Consultant ID Estefani Sheth 11/08/2024 5:14 PM EDT [facility] Device ID [id number] 11/08/2024 5:14 PM EDT [facility] Specimen Type POC Capillary 11/08/2024 5:14 PM EDT [facility] Blood Capillary blood specimen / Unknown 11/08/2024 5:12 PM EDT 11/08/2024 5:14 PM EDT Nathaly Nowak MD LAB POINT OF CARE TE ST DOCKED DEVICE UNSOLICITED RESULTS Final Result Performing Organization Address [facility] Co de Phone Number [facility] [address] [place] [address] * (ABNORMAL) POCT glucose meter (11/08/2024 12:03 PM EDT) Pathologist [facility] POCT Glucose 191(H) 74 - 99 mg/dL [...] for testing. Comment 11/08/2024 12:05 PM EDT [facility] Consultant ID Estefani Sheth 11/08/2024 12:05 PM EDT HEALTH[facility]ARE LAB Device ID [id number] 11/08/2024 12:05 PM EDT [facility] Specimen Type POC Capillary 11/08/2024 12:05 PM EDT [facility] Blood Capillary blood specimen / Unknown 11/08/2024 12:03 PM EDT 11/08/2024 12:05 PM EDT Nathaly Nowak MD LAB POINT OF CARE TE ST DOCKED DEVICE UNSOLICITED RESULTS Final Result Performing Organization Address [facility] Co de Phone Number [facility] [address] [place] [address] * Vancomycin, Peak, Plasma Please draw ~2 hours after 11/08 0600 dose of vancomycin finishes infusing.Consider obtaining level via peripheral stick. If peripheral stick is not feasible, please ensure that line is flushed well prior to drawing level.... (11/08/2024 9:24 AM EDT) Pathologist [facility] Vancomycin, Peak, Plasma 29.1 20.0 - 40.0 ug/mL 11/08/2024 10:31 AM EDT [facility] Blood Venous blood specimen / Unknown Venipuncture / Unknown 11/08/2024 9:24 AM EDT 11/08/2024 9:47 AM EDT Narrative [facility] - 11/08/2024 10:31 AM EDT Therapeutic Peak level: 20-40ug/mL Supra-therapeutic Peak level: >40 ug/mL Nathaly Nowak MD LAB BLOOD ORDERABLES Final Resu lt Performing Organization Address [facility] Co de Phone Number [facility] [address] [place] [address] * (ABNORMAL) POCT glucose meter (11/08/2024 8:00 AM EDT) [facility] POCT Glucose 150(H) 74 - 99 mg/dL [...] Comment 11/08/2024 8:01 AM EDT [facility] Consultant ID Estefani Sheth 11/08/2024 8:01 AM EDT [facility]ALTH[facility] LAB Device ID [id number] 11/08/2024 8:01 AM EDT [facility] Specimen Type POC Capillary 11/08/2024 8:01 AM EDT [facility] Blood Capillary blood specimen / Unknown 11/08/2024 8:00 AM EDT 11/08/2024 8:01 AM EDT Nathaly Nowak MD LAB POINT OF CARE TE ST DOCKED DEVICE UNSOLICITED RESULTS Final Result Performing Organization Address City/[facility]/ZIP Co de Phone Number [facility] [address] [place] [address] * (ABNORMAL) CBC and Differential (11/08/2024 4:39 AM EDT) [facility] WBC Count 9.18 3.70 - 10.30 10*3/uL LAB HEMATOLOGY METHOD 11/08/2024 4:58 AM EDT [facility] RBC Count 3.11(L) 4.60 - 6.10 10*6/uL LAB HEMATOLOGY METHOD 11/08/2024 4:58 AM EDT [facility] HGB 9.2(L) 13.7 - 17.5 g/dL LAB HEMATOLOGY METHOD 11/08/2024 4:58 AM EDT [facility] HCT 28.9(L) 40.0 - 51.0 % LAB HEMATOLOGY METHOD 11/08/2024 4:58 AM EDT [facility] Platelet Count 485(H) 155 - 369 10*3/uL LAB HEMATOLOGY METHOD 11/08/2024 4:58 AM EDT [facility] MCV 93 79 - 98 fL LAB HEMATOLOGY METHOD 11/08/2024 4:58 AM EDT [facility] MCH 29.6 26.0 - 32.0 pg LAB HEMATOLOGY METHOD 11/08/2024 4:58 AM EDT [facility] MCHC 31.8 30.7 - 35.5 g/dL LAB HEMATOLOGY METHOD 11/08/2024 4:58 AM EDT [facility] RDW 13.0 11.5 - 14.5 % LAB HEMATOLOGY METHOD 11/08/2024 4:58 AM EDT [facility] MPV 8.8 8.8 - 12.5 fL LAB HEMATOLOGY METHOD 11/08/2024 4:58 AM EDT [facility] nRBC 0.0 <=0.0 per 100 WBCs LAB HEMATOLOGY METHOD 11/08/2024 4:58 AM EDT [facility] Differential Type Automated LAB HEMATOLOGY METHOD 11/08/2024 4:58 AM EDT [facility] Neutrophils % 69 % LAB HEMATOLOGY METHOD 11/08/2024 4:58 AM EDT [facility] Lymphocytes % 17 % LAB HEMATOLOGY METHOD 11/08/2024 4:58 AM EDT [facility] Monocytes % 10 % LAB HEMATOLOGY METHOD 11/08/2024 4:58 AM EDT [facility] Eosinophils % 2 % LAB HEMATOLOGY METHOD 11/08/2024 4:58 AM EDT [facility] Basophils % 1 % LAB HEMATOLOGY METHOD 11/08/2024 4:58 AM EDT [facility] Immature Granulocytes % 1 % LAB HEMATOLOGY METHOD 11/08/2024 4:58 AM EDT [facility] Neutrophils Absolute 6.40(H) 1.60 - 6.10 10*3/uL LAB HEMATOLOGY METHOD 11/08/2024 4:58 AM EDT [facility] Lymphocytes Absolute 1.59 1.20 - 3.90 10*3/uL LAB HEMATOLOGY METHOD 11/08/2024 4:58 AM EDT [facility] Monocytes Absolute 0.87 0.30 - 0.90 10*3/uL LAB HEMATOLOGY METHOD 11/08/2024 4:58 AM EDT [facility] Eosinophils Absolute 0.22 0.00 - 0.50 10*3/uL LAB HEMATOLOGY METHOD 11/08/2024 4:58 AM EDT [facility] Basophils Absolute 0.05 0.00 - 0.10 10*3/uL LAB HEMATOLOGY METHOD 11/08/2024 4:58 AM EDT [facility] Immature Granulocytes Absolute 0.05 0.00 - 0.06 10*3/uL LAB HEMATOLOGY METHOD 11/08/2024 4:58 AM EDT [facility] Blood Venous blood specimen / Unknown Venipuncture / Unknown 11/08/2024 4:39 AM EDT 11/08/2024 4:49 AM EDT Narrative [facility] - 11/08/2024 4:58 AM EDT Therapeutic decision making should be based on absolute values, rather than percentages. us Nathaly Nowak MD LAB BLOOD ORDERABLES Final Resu lt [facility] [address] [place] [address] * (ABNORMAL) Comprehensive Metabolic Panel, Plasma (11/08/2024 4:39 AM EDT) Glucose, Plasma 255(H) 74 - 99 mg/dL 11/08/2024 5:20 AM EDT [facility] BUN, Plasma 10 8 - 23 mg/dL 11/08/2024 5:20 AM EDT [facility] Creatinine, Plasma 0.75 0.70 - 1.20 mg/dL 11/08/2024 5:20 AM EDT [facility] BUN/Creatinine Ratio 13 11/08/2024 5:20 AM EDT [facility] Sodium, Plasma 133(L) 136 - 145 mmol/L 11/08/2024 5:20 AM EDT [facility] Potassium, Plasma 5.2(H) 3.6 - 4.9 mmol/L 11/08/2024 5:20 AM EDT [facility] Chloride, Plasma 105 97 - 107 mmol/L 11/08/2024 5:20 AM EDT [facility] CO2, Plasma 20(L) 22 - 29 mmol/L 11/08/2024 5:20 AM EDT [facility] Anion Gap 8 6 - 16 mmol/L 11/08/2024 5:20 AM EDT [facility] Total Calcium, Plasma 7.7(L) 8.9 - 10.2 mg/dL 11/08/2024 5:20 AM EDT [facility] Total Protein 5.6(L) 6.3 - 7.9 g/dL 11/08/2024 5:20 AM EDT [facility] Albumin, Plasma 2.8(L) 3.5 - 5.2 g/dL 11/08/2024 5:20 AM EDT [facility] AST, Plasma 20 10 - 50 U/L 11/08/2024 5:20 AM EDT [facility] Comment:Hemolyzed, result ma y be falsely increased. ALT, Plasma 14 10 - 50 U/L 11/08/2024 5:20 AM EDT [facility] Alkaline Phosphatase, Plasma 119(H) 40 - 115 U/L 11/08/2024 5:20 AM EDT [facility] Total Bilirubin, Plasma <0.2(L) 0.2 - 1.1 mg/dL 11/08/2024 5:20 AM EDT [facility] eGFRcr 100.1 mL/min/1.7 3m*2 11/08/2024 5:20 AM EDT [facility] Comment:Reported eGFRcr in m L/min/1.73m2 is based the CKD-EPI 2020 equation that does not use a race coefficient. Blood Venous blood specimen / Unknown Venipuncture / Unknown 11/08/2024 4:39 AM EDT 11/08/2024 4:43 AM EDT Nathaly Nowak MD LAB BLOOD ORDERABLES Final Resu lt Performing Organization Address [facility] Co de Phone Number [facility] [address] [place] [address] * Vancomycin, Trough, Plasma Please draw ~30 minutes prior to dose due at 0600 on 11/08. Please do NOThold dose awaiting level to return. Consider obtaining level via peripheral stick. If peripheral stick is not feasible, please ensure that line is... (11/08/2024 4:39 AM EDT) [facility] Vancomycin, Trough, Plasma 18.7 10.0 - 20.0 ug/mL 11/08/2024 5:22 AM EDT [facility] Blood Venous blood specimen / Unknown Venipuncture / Unknown 11/08/2024 4:39 AM EDT 11/08/2024 4:43 AM EDT Narrative [facility] - 11/08/2024 5:22 AM EDT Therapeutic Trough level: 10-20ug/mL Supra-therapeutic Trough level: >20 ug/mL Nathaly Nowak MD LAB BLOOD ORDERABLES Final Resu Performing Organization Address [facility] [place] [address] * (ABNORMAL) POCT glucose meter (11/07/2024 7:26 PM EDT) [facility] POCT Glucose 172(H) 74 - 99 mg/dL [...] 11/07/2024 7:28 PM EDT [facility] Consultant ID Maximiliano Hansen II 11/07/2024 7:28 PM EDT [facility] Device ID [id number] 11/07/2024 7:28 PM EDT [facility] Specimen Type POC Capillary 11/07/2024 7:28 PM EDT [facility] Blood Capillary blood specimen / Unknown 11/07/2024 7:26 PM EDT 11/07/2024 7:28 PM EDT Nathaly Nowak MD LAB POINT OF CARE TE ST DOCKED DEVICE UNSOLICITED RESULTS Final Result Performing Organization Address City/[facility]/ZIP Co de Phone Number [facility] [address] [place] [address] * (ABNORMAL) POCT glucose meter (11/07/2024 5:51 [...] Comment 11/07/2024 5:52 PM EDT [facility] Consultant ID Brigitte Castellon 11/07/2024 5:52 PM EDT [facility]ARE [facility] Device ID [id number] 11/07/2024 5:52 PM EDT [facility] Specimen Type POC Capillary 11/07/2024 5:52 PM EDT [facility] Blood Capillary blood specimen / Unknown 11/07/2024 5:51 PM EDT 11/07/2024 5:52 PM EDT us Nathaly Nowak MD LAB POINT OF CARE TE ST DOCKED DEVICE UNSOLICITED RESULTS Final Result [facility] [address] [place] [address] * (ABNORMAL) POCT glucose meter (11/07/2024 4:47 [...] 11/07/2024 4:48 PM EDT [facility] Consultant ID Estefani Sheth 11/07/2024 4:48 PM EDT [facility] Device ID [id number] 11/07/2024 4:48 PM EDT [facility] Specimen Type POC Capillary 11/07/2024 4:48 PM EDT [facility] Blood Capillary blood specimen / Unknown 11/07/2024 4:47 PM EDT 11/07/2024 4:48 PM EDT us Nathaly Nowak MD LAB POINT OF CARE TE ST DOCKED DEVICE UNSOLICITED RESULTS Final Result Performing Organization Address City/State/[facility] Co de Phone Number [facility] [address] [place] [address] * (ABNORMAL) POCT glucose meter (11/07/2024 12:22 PM EDT) [facility] POCT Glucose 172(H) 74 - 99 mg/dL [...] 11/07/2024 12:24 PM EDT [facility] Consultant ID Estefani Sheth 11/07/2024 12:24 PM EDT [facility] Device ID [id number] 11/07/2024 12:24 PM EDT [facility] Specimen Type POC Capillary 11/07/2024 12:24 PM EDT [facility] Blood Capillary blood specimen / Unknown 11/07/2024 12:22 PM EDT 11/07/2024 12:24 PM EDT us Nathaly Nowak MD LAB POINT OF CARE TE ST DOCKED DEVICE UNSOLICITED RESULTS Final Result [facility] [address] [place] [phone] * (ABNORMAL) CBC and Differential (11/07/2024 11:37 AM EDT) WBC Count 9.96 3.70 - 10.30 10*3/uL LAB HEMATOLOGY METHOD 11/07/2024 12:33 PM EDT [facility] RBC Count 2.81(L) 4.60 - 6.10 10*6/uL LAB HEMATOLOGY METHOD 11/07/2024 12:33 PM EDT [facility] HGB 8.5(L) 13.7 - 17.5 g/dL LAB HEMATOLOGY METHOD 11/07/2024 12:33 PM EDT [facility] HCT 26.0(L) 40.0 - 51.0 % LAB HEMATOLOGY METHOD 11/07/2024 12:33 PM EDT [facility] Platelet Count 524(H) 155 - 369 10*3/uL LAB HEMATOLOGY METHOD 11/07/2024 12:33 PM EDT [facility] MCV 93 79 - 98 fL LAB HEMATOLOGY METHOD 11/07/2024 12:33 PM EDT [facility] MCH 30.2 26.0 - 32.0 pg LAB HEMATOLOGY METHOD 11/07/2024 12:33 PM EDT [facility] MCHC 32.7 30.7 - 35.5 g/dL LAB HEMATOLOGY METHOD 11/07/2024 12:33 PM EDT [facility] RDW 13.1 11.5 - 14.5 % LAB HEMATOLOGY METHOD 11/07/2024 12:33 PM EDT [facility] MPV 9.0 8.8 - 12.5 fL LAB HEMATOLOGY METHOD 11/07/2024 12:33 PM EDT [facility] nRBC 0.0 <=0.0 per 100 WBCs LAB HEMATOLOGY METHOD 11/07/2024 12:33 PM EDT [facility] Differential Type Automated LAB HEMATOLOGY METHOD 11/07/2024 12:33 PM EDT [facility] Neutrophils % 72 % LAB HEMATOLOGY METHOD 11/07/2024 12:33 PM EDT [facility] Lymphocytes % 17 % LAB HEMATOLOGY METHOD 11/07/2024 12:33 PM EDT [facility] Monocytes % 9 % LAB HEMATOLOGY METHOD 11/07/2024 12:33 PM EDT [facility] Eosinophils % 1 % LAB HEMATOLOGY METHOD 11/07/2024 12:33 PM EDT [facility] Basophils % 1 % LAB HEMATOLOGY METHOD 11/07/2024 12:33 PM EDT [facility] Immature Granulocytes % 0 % LAB HEMATOLOGY METHOD 11/07/2024 12:33 PM EDT [facility] Neutrophils Absolute 7.19(H) 1.60 - 6.10 10*3/uL LAB HEMATOLOGY METHOD 11/07/2024 12:33 PM EDT [facility] Lymphocytes Absolute 1.66 1.20 - 3.90 10*3/uL LAB HEMATOLOGY METHOD 11/07/2024 12:33 PM EDT [facility] Monocytes Absolute 0.88 0.30 - 0.90 10*3/uL LAB HEMATOLOGY METHOD 11/07/2024 12:33 PM EDT [facility] Eosinophils Absolute 0.14 0.00 - 0.50 10*3/uL LAB HEMATOLOGY METHOD 11/07/2024 12:33 PM EDT [facility] Basophils Absolute 0.05 0.00 - 0.10 10*3/uL LAB HEMATOLOGY METHOD 11/07/2024 12:33 PM EDT [facility] Immature Granulocytes Absolute 0.04 0.00 - 0.06 10*3/uL LAB HEMATOLOGY METHOD 11/07/2024 12:33 PM EDT [facility] Blood Venous blood specimen / Unknown Venipuncture / Unknown 11/07/2024 11:37 AM EDT 11/07/2024 12:24 PM EDT [facility] - 11/07/2024 12:33 PM EDT Therapeutic decision making should be based on absolute values, rather than percentages. us Nathaly Nowak MD LAB BLOOD ORDERABLES Final Resu lt [facility] [address] [place] [address] * (ABNORMAL) Comprehensive Metabolic Panel, Plasma (11/07/2024 11:37 AM EDT) Glucose, Plasma 173(H) 74 - 99 mg/dL 11/07/2024 1:31 PM EDT [facility] BUN, Plasma 13 8 - 23 mg/dL 11/07/2024 1:31 PM EDT [facility] Creatinine, Plasma 0.92 0.70 - 1.20 mg/dL 11/07/2024 1:31 PM EDT [facility] BUN/Creatinine Ratio 14 11/07/2024 1:31 PM EDT [facility] Sodium, Plasma 136 136 - 145 mmol/L 11/07/2024 1:31 PM EDT [facility] Potassium, Plasma 4.0 3.6 - 4.9 mmol/L 11/07/2024 1:31 PM EDT [facility] Chloride, Plasma 104 97 - 107 mmol/L 11/07/2024 1:31 PM EDT [facility] CO2, Plasma 23 22 - 29 mmol/L 11/07/2024 1:31 PM EDT [facility] Anion Gap 9 6 - 16 mmol/L 11/07/2024 1:31 PM EDT [facility] Total Calcium, Plasma 7.8(L) 8.9 - 10.2 mg/dL 11/07/2024 1:31 PM EDT [facility] Total Protein 5.7(L) 6.3 - 7.9 g/dL 11/07/2024 1:31 PM EDT [facility] Albumin, Plasma 3.0(L) 3.5 - 5.2 g/dL 11/07/2024 1:31 PM EDT [facility] AST, Plasma 15 10 - 50 U/L 11/07/2024 1:31 PM EDT [facility] ALT, Plasma 16 10 - 50 U/L 11/07/2024 1:31 PM EDT [facility] Alkaline Phosphatase, Plasma 119(H) 40 - 115 U/L 11/07/2024 1:31 PM EDT [facility] Total Bilirubin, Plasma <0.2(L) 0.2 - 1.1 mg/dL 11/07/2024 1:31 PM EDT [facility] eGFRcr 92.3 mL/min/1.7 3m*2 11/07/2024 1:31 PM EDT [facility] Comment:Reported eGFRcr in m L/min/1.73m2 is based the CKD-EPI 2020 equation that does not use a race coefficient. Blood Venous blood specimen / Unknown Venipuncture / Unknown 11/07/2024 11:37 AM EDT 11/07/2024 12:23 PM EDT Nathaly Nowak MD LAB BLOOD ORDERABLES Final Resu lt Performing Organization Address City/[facility]/ZIP Co de Phone Number [facility] [address] [place] [address] * Type and Screen (11/07/2024 11:37 AM [...] inal Result Performing Organization Address [facility] Co de Phone Number BLOOD BANK [address] [place] [address], * (ABNORMAL) POCT glucose meter (11/07/2024 10:34 AM EDT) POCT Glucose 199(H) 74 - 99 mg/dL 11/07/2024 10:36 AM EDT [facility] Comment:Accuracy of a glucos e result [...] Comment 11/07/2024 10:36 AM EDT [facility] Consultant ID Joy Iraheta 11/07/2024 10:36 AM EDT HEALTHCARE LAB Device ID [id number] 11/07/2024 10:36 AM EDT [facility]ALTH[facility] LAB Specimen Type POC Capillary 11/07/2024 10:36 AM EDT [facility] Blood Capillary blood specimen / Unknown 11/07/2024 10:34 AM EDT 11/07/2024 10:36 AM EDT Nathaly Nowak MD LAB POINT OF CARE TE ST DOCKED DEVICE UNSOLICITED RESULTS Final Result Performing Organization Address City/[facility] de Phone Number HEALTHCARE LAB [address] [place] [address] * (ABNORMAL) POCT glucose meter (11/07/2024 9:34 AM EDT) [facility] Signature POCT Glucose 208(H) 74 - [...] Comment 11/07/2024 9:36 AM EDT [facility] Consultant ID Brigitte Castellon 11/07/2024 9:36 AM EDT HEALTHCARE LAB Device ID [id number] 11/07/2024 9:36 AM EDT [facility] Specimen Type POC Capillary 11/07/2024 9:36 AM EDT [facility] Blood Capillary blood specimen / Unknown 11/07/2024 9:34 AM EDT 11/07/2024 9:36 AM EDT Nathaly Nowak MD LAB POINT OF CARE TE ST DOCKED DEVICE UNSOLICITED RESULTS Final Result Performing Organization Address City/[facility] Co de Phone Number HEALTHCARE LAB [address] [place] [address] * (ABNORMAL) POCT glucose meter (11/07/2024 8:20 AM EDT) [facility] POCT Glucose 137(H) 74 - 99 mg/dL [...] Comment 11/07/2024 8:22 AM EDT [facility] Consultant ID Estefani Sheth 11/07/2024 8:22 AM EDT [facility] Device ID [id number] 11/07/2024 8:22 AM EDT [facility]ALTH[facility]ARE [facility] Specimen Type POC Capillary 11/07/2024 8:22 AM EDT [facility]ALTH[facility]ARE [facility] Blood Capillary blood specimen / Unknown 11/07/2024 8:20 AM EDT 11/07/2024 8:22 AM EDT Nathaly Nowak MD LAB POINT OF CARE TE ST DOCKED DEVICE UNSOLICITED RESULTS Final Result [facility] [address] [place] [address] * (ABNORMAL) POCT glucose meter (11/07/2024 7:21 AM EDT) [facility] POCT Glucose 151(H) 74 - 99 mg/dL [...] 11/07/2024 7:22 AM EDT [facility] Consultant ID Brigitte Castellon 11/07/2024 7:22 AM EDT HEALTHCARE LAB Device ID [id number] 11/07/2024 7:22 AM EDT [facility] Specimen Type POC Capillary 11/07/2024 7:22 AM EDT [facility] Blood Capillary blood specimen / Unknown 11/07/2024 7:21 AM EDT 11/07/2024 7:22 AM EDT Nathaly Nowak MD LAB POINT OF CARE TE ST DOCKED DEVICE UNSOLICITED RESULTS Final Result Performing Organization Address City/[facility] Co de Phone Number HEALTHCARE LAB [address] [place] [address] * (ABNORMAL) POCT glucose meter (11/07/2024 6:25 [...] Comment 11/07/2024 6:27 AM EDT [facility] Consultant ID Nelda Gerber 11/08/19 6:27 AM EDT HEALTHCARE LAB Device ID [id number] 11/07/2024 6:27 AM EDT [facility]ALTH[facility]ARE [facility] Specimen Type POC Capillary 11/07/2024 6:27 AM EDT [facility] Blood Capillary blood specimen / Unknown 11/07/2024 6:25 AM EDT 11/07/2024 6:27 AM EDT us Nathaly Nowak MD LAB POINT OF CARE TE ST DOCKED DEVICE UNSOLICITED RESULTS Final Result Performing Organization Address City/[facility]/ZIP Co de Phone Number [facility] [address] [place] [address] * (ABNORMAL) POCT glucose meter (11/07/2024 5:03 [...] Comment 11/07/2024 5:08 AM EDT [facility] Consultant ID Nelda Gerber 11/08/19 5:08 AM EDT HEALTHCARE LAB Device ID [id number] 11/07/2024 5:08 AM EDT [facility]ALTH[facility]ARE LAB Specimen Type POC Capillary 11/07/2024 5:08 AM EDT [facility] Blood Capillary blood specimen / Unknown 11/07/2024 5:03 AM EDT 11/07/2024 5:08 AM EDT Nathaly Nowak MD LAB POINT OF CARE TE ST DOCKED DEVICE UNSOLICITED RESULTS Final Result Performing Organization Address City/State/[facility] Co de Phone Number HEALTHCARE LAB [address] [place] [address] * (ABNORMAL) POCT glucose meter (11/07/2024 4:16 AM EDT) [facility] POCT Glucose 142(H) 74 - 99 mg/dL [...] Comment 11/07/2024 4:18 AM EDT [facility] Consultant ID Nelda Gerber 11/08/19 4:18 AM EDT HEALTHCARE LAB Device ID [id number] 11/07/2024 4:18 AM EDT [facility]ALTH[facility]ARE LAB Specimen Type POC Capillary 11/07/2024 4:18 AM EDT [facility]ALTH[facility] Blood Capillary blood specimen / Unknown 11/07/2024 4:16 AM EDT 11/07/2024 4:18 AM EDT us Nathaly Nowak MD LAB POINT OF CARE TE ST DOCKED DEVICE UNSOLICITED RESULTS Final Result [facility] [address] [place] [address] * (ABNORMAL) POCT glucose meter (11/07/2024 3:21 [...] for testing. Comment 11/07/2024 3:23 AM EDT [facility] Consultant ID Nelda Gerber 11/08/19 3:23 AM EDT [facility] Device ID [id number] 11/07/2024 3:23 AM EDT [facility] Specimen Type POC Capillary 11/07/2024 3:23 AM EDT [facility] Blood Capillary blood specimen / Unknown 11/07/2024 3:21 AM EDT 11/07/2024 3:23 AM EDT us Nathaly Nowak MD LAB POINT OF CARE TE ST DOCKED DEVICE UNSOLICITED RESULTS Final Result Performing Organization Address City/[facility]/ZIP Co de Phone Number [facility] [address] [place] [address] * (ABNORMAL) POCT glucose meter (11/07/2024 2:10 [...] Comment 11/07/2024 2:12 AM EDT [facility] Consultant ID Nelda Gerber 11/08/19 2:12 AM EDT [facility] Device ID [id number] 11/07/2024 2:12 AM EDT [facility] Specimen Type POC Capillary 11/07/2024 2:12 AM EDT [facility]ALTH[facility]ARE LAB Blood Capillary blood specimen / Unknown 11/07/2024 2:10 AM EDT 11/07/2024 2:12 AM EDT Nathaly Nowak MD LAB POINT OF CARE TE ST DOCKED DEVICE UNSOLICITED RESULTS Final Result Performing Organization Address City/[facility] Co de Phone Number [facility] [address] [place] [address] * (ABNORMAL) POCT glucose meter (11/07/2024 1:08 [...] Comment 11/07/2024 1:10 AM EDT [facility] Consultant ID Nelda Gerber 11/08/19 1:10 AM EDT HEALTHCARE LAB Device ID [id number] 11/07/2024 1:10 AM EDT [facility] Specimen Type POC Capillary 11/07/2024 1:10 AM EDT [facility]ALTH[facility] Blood Capillary blood specimen / Unknown 11/07/2024 1:08 AM EDT 11/07/2024 1:10 AM EDT Nathaly Nowak MD LAB POINT OF CARE TE ST DOCKED DEVICE UNSOLICITED RESULTS Final Result Performing Organization Address City/[facility]/ZIP Co de Phone Number [facility] [address] [place] [address] * (ABNORMAL) POCT glucose meter (11/07/2024 12:10 AM EDT) Pathologist [facility] POCT Glucose 127(H) 74 - 99 mg/dL [...] Comment 11/07/2024 12:13 AM EDT [facility]ARE [facility] Consultant ID Nelda Gerber 11/08/19 12:13 AM EDT [facility] Device ID [id number] 11/07/2024 12:13 AM EDT [facility] Specimen Type POC Capillary 11/07/2024 12:13 AM EDT [facility] Blood Capillary blood specimen / Unknown 11/07/2024 12:10 AM EDT 11/07/2024 12:13 AM EDT us Nathaly Nowak MD LAB POINT OF CARE TE ST DOCKED DEVICE UNSOLICITED RESULTS Final Result Performing Organization Address City/State/[facility] Co de Phone Number HEALTHCARE LAB [address] [place] [address] * (ABNORMAL) POCT glucose meter (11/06/2024 11:14 PM EDT) [facility] POCT Glucose 71(L) 74 - 99 mg/dL [...] 11/06/2024 11:16 PM EDT [facility] Consultant ID Nelda Gerber 11/07/19 11:16 PM EDT [facility] Device ID [id number] 11/06/2024 11:16 PM EDT HEALTHCARE LAB Specimen Type POC Capillary 11/06/2024 11:16 PM EDT [facility]ALTH[facility]ARE LAB Blood Capillary blood specimen / Unknown 11/06/2024 11:14 PM EDT 11/06/2024 11:16 PM EDT Nathaly Nowak MD LAB POINT OF CARE TE ST DOCKED DEVICE UNSOLICITED RESULTS Final Result [facility] [address] [place] [address] * (ABNORMAL) POCT glucose meter (11/06/2024 10:07 [...] Comment 11/06/2024 10:09 PM EDT [facility] Consultant ID Nelda Gerber 11/07/19 10:09 PM EDT HEALTHCARE LAB Device ID [id number] 11/06/2024 10:09 PM EDT [facility] Specimen Type POC Capillary 11/06/2024 10:09 PM EDT [facility] Blood Capillary blood specimen / Unknown 11/06/2024 10:07 PM EDT 11/06/2024 10:09 PM EDT Nathaly Nowak MD LAB POINT OF CARE TE ST DOCKED DEVICE UNSOLICITED RESULTS Final Result [facility] [address] [place] [address] * (ABNORMAL) POCT glucose meter (11/06/2024 8:22 [...] Comment 11/06/2024 8:25 PM EDT [facility] Consultant ID Nelda Gerber 11/07/19 8:25 PM EDT HEALTH[facility]ARE LAB Device ID [id number] 11/06/2024 8:25 PM EDT [facility]ARE [facility] Specimen Type POC Capillary 11/06/2024 8:25 PM EDT [facility] Blood Capillary blood specimen / Unknown 11/06/2024 8:22 PM EDT 11/06/2024 8:25 PM EDT Nathaly Nowak MD LAB POINT OF CARE TE ST DOCKED DEVICE UNSOLICITED RESULTS Final Result Performing Organization Address City/State/[facility] Co de Phone Number HEALTHCARE LAB [address] [place] [address] * (ABNORMAL) POCT glucose meter (11/06/2024 7:31 [...] Comment 11/06/2024 7:32 PM EDT [facility] Consultant ID Nelda Gerber 11/07/19 7:32 PM EDT HEALTHCARE LAB Device ID [id number] 11/06/2024 7:32 PM EDT [facility]ALTH[facility]ARE LAB Specimen Type POC Capillary 11/06/2024 7:32 PM EDT [facility] Blood Capillary blood specimen / Unknown 11/06/2024 7:31 PM EDT 11/06/2024 7:32 PM EDT us Nathaly Nowak MD LAB POINT OF CARE TE ST DOCKED DEVICE UNSOLICITED RESULTS Final Result Performing Organization Address City/[facility]/ZIP Co de Phone Number HEALTHCARE LAB [address] [place] [address] * (ABNORMAL) POCT glucose meter (11/06/2024 6:15 PM EDT) [facility] POCT Glucose 368(H) 74 - 99 mg/dL [...] for testing. Comment 11/06/2024 6:17 PM EDT [facility] Consultant ID Estefani Sheth 11/06/2024 6:17 PM EDT [facility] Device ID [id number] 11/06/2024 6:17 PM EDT [facility] Specimen Type POC Capillary 11/06/2024 6:17 PM EDT [facility] Blood Capillary blood specimen / Unknown 11/06/2024 6:15 PM EDT 11/06/2024 6:17 PM EDT Nathaly Nowak MD LAB POINT OF CARE TE ST DOCKED DEVICE UNSOLICITED RESULTS Final Result Performing Organization Address City/[facility] Co de Phone Number [facility] [address] [place] [address] * (ABNORMAL) POCT glucose meter (11/06/2024 4:57 PM EDT) [facility] POCT Glucose 417(H) 74 - 99 mg/dL [...] 11/06/2024 4:58 PM EDT [facility] Consultant ID Estefani Sheth 11/06/2024 4:58 PM EDT HEALTHCARE LAB Device ID [id number] 11/06/2024 4:58 PM EDT [facility]ALTH[facility]ARE LAB Specimen Type POC Capillary 11/06/2024 4:58 PM EDT [facility]ALTH[facility] LAB Blood Capillary blood specimen / Unknown 11/06/2024 4:57 PM EDT 11/06/2024 4:58 PM EDT Nathaly Nowak MD LAB POINT OF CARE TE ST DOCKED DEVICE UNSOLICITED RESULTS Final Result Performing Organization Address City/[facility]/ZIP Co de Phone Number [facility]ALTH[facility]ARE [facility] [address] [place] [address] * (ABNORMAL) POCT glucose meter (11/06/2024 2:08 [...] Comment 11/06/2024 2:09 PM EDT [facility] Consultant ID Brigitte Castellon 11/06/2024 2:09 PM EDT HEALTHCARE LAB Device ID [id number] 11/06/2024 2:09 PM EDT [facility]ALTH[facility]ARE LAB Specimen Type POC Capillary 11/06/2024 2:09 PM EDT [facility]ALTH[facility] Blood Capillary blood specimen / Unknown 11/06/2024 2:08 PM EDT 11/06/2024 2:09 PM EDT Nathaly Nowak MD LAB POINT OF CARE TE ST DOCKED DEVICE UNSOLICITED RESULTS Final Result Performing Organization Address City/[facility]/ZIP Co de Phone Number [facility]ARE [facility] [address] [place] [address] * (ABNORMAL) POCT glucose meter (11/06/2024 12:27 [...] Comment 11/06/2024 12:28 PM EDT [facility] Consultant ID Jacinta Galloway 11/06/2024 12:28 PM EDT HEALTHCARE LAB Device ID [id number] 11/06/2024 12:28 PM EDT HEALTHCARE LAB Specimen Type POC Capillary 11/06/2024 12:28 PM EDT [facility]ALTH[facility]ARE LAB Blood Capillary blood specimen / Unknown 11/06/2024 12:27 PM EDT 11/06/2024 12:28 PM EDT us Nathaly Nowak MD LAB POINT OF CARE TE ST DOCKED DEVICE UNSOLICITED RESULTS Final Result Performing Organization Address City/State/[facility] Co de Phone Number HEALTHCARE LAB [address] [place] [address] * (ABNORMAL) Fungal Culture, Tissue and ISIDRO (11/06/2024 11:34 AM EDT) [facility] Culture Reading 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 These results have been appended to the previously preliminary verified report. Edited result: Previously reported as Yeast on 11/11/2024 at 1317 EDT. ISIDRO No fungal elements seen 12/05/2024 8:36 AM EDT [facility] Tissue Topography unknown / [...] Nathaly Nowak MD LAB MICROBIOLOGY - [facility] Final Result [facility] [address] [place] [address] * (ABNORMAL) Tissue Culture and Gram Stain (11/06/2024 11:34 AM EDT) Culture Moderate Growth 7:35 AM EDT [facility] Culture 2+ Enterobacter cloacae complex(A) ANGÉLICA 11/15/2024 7:35 AM EDT [facility] Comment: This isolate has been identified using the FDA Approved Thermo[employer] CA System The organism value for this result has been updated. These results have been appended to the previously preliminary verified report. Edited result: Previously reported as Gram Negative Jesus on 11/07/2024 at 1434 EDT. Culture 2+ Streptococcus mitis/oralis group(A) ANGÉLICA 11/15/2024 7:35 AM EDT [facility] Comment: This isolate has been identified using the FDA Approved [employer] CA System The organism value for this result has been updated. These results have been appended to the previously preliminary verified report. Culture 2+ Pasteurella stomatis(A) ANGÉLICA 11/15/2024 7:35 AM EDT [facility] Comment: This result was determined by [employer]DI tof mass spectrometry using the [employer] database and is for research use only. The organism value for this result has been updated. These results have been appended to the previously preliminary verified report. Gram Stain Result Few Gram negative rods(A) 11/15/2024 7:35 AM EDT [facility] Gram Stain Result Moderate Polymorphonuclear leukocytes(A) 11/15/2024 7:35 AM EDT [facility] Gram Stain Result Few Gram positive cocci in pairs(A) 11/15/2024 7:35 AM EDT [facility] Tissue Topography unknown / Unknown 11/06/2024 11:34 AM EDT 11/06/2024 12:18 PM EDT Comment:Pre-op diagnosis: Surgical wound infection [T81.49XA] Narrative [facility] - 11/15/2024 7:35 AM [...] GENERAL ORDAna FRITZ Edited Result - Final [facility] [address] [place] [address] * (ABNORMAL) Anaerobic Culture (11/06/2024 11:34 AM EDT) Culture No anaerobes isolated 11/14/2024 1:25 PM EDT [facility] Culture Staphylococcus pseudintermedius( A) 11/14/2024 1:25 PM EDT [facility] Comment: This result was determined by [employer]DI tof mass spectrometry using the [employer] database and is for research use only. This is an appended report. These results have been appended to a previously final verified report. Tissue Topography unknown / Unknown 11/06/2024 11:34 AM EDT 11/06/2024 12:18 PM EDT Comment:Pre-op diagnosis: Surgical wound infection [T81.49XA] Narrative [facility] - 11/14/2024 1:25 PM [...] Nowak MD LAB MICROBIOLOGY - GENERAL ORDAna KRUSEPARKHILL THE [facility] Edited Result - Final [facility] [address] [place] [address] * (ABNORMAL) Routine Culture and Gram Stain (11/06/2024 11:29 AM EDT) Culture Moderate Growth 5:29 PM EDT [facility] Culture Enterobacter cloacae complex(A) 11/08/2024 5:29 PM EDT [facility] Comment: This isolate has been identified using the FDA Approved ThermoAurayper CA System For susceptibility results refer to: - [id number] The organism value for this result has been updated. These results have been appended to the previously preliminary verified report. Gram Stain Result No polymorphonuclear leukocytes seen 11/08/2024 5:29 PM EDT [facility] Gram Stain Result No organisms seen 11/08/2024 5:29 PM EDT [facility] Swab Topography unknown / Unknown 11/06/2024 11:29 AM EDT 11/06/2024 12:19 PM EDT Comment:Pre-op diagnosis: Surgical wound infection [T81.49XA] Nathaly Nowak MD LAB MICROBIOLOGY - GENERAL ORD LAM Final Result Performing Organization Address City/[facility] [place] [address] * Fungal Culture, Routine (11/06/2024 11:29 AM EDT) Culture No Fungal Growth at 1 Week 11/13/2024 8:[address] [facility] Swab Topography unknown / Unknown 11/06/2024 11:29 AM EDT 11/06/2024 12:19 PM EDT Comment:Pre-op diagnosis: Surgical wound infection [T81.49XA] Nathaly Nowak MD LAB MICROBIOLOGY - GENERAL [facility] Final Result Performing Organization Address [facility] [place] [address] * (ABNORMAL) Anaerobic Culture (11/06/2024 11:29 AM EDT) Culture No anaerobes isolated 11/14/2024 1:25 PM EDT [facility] Culture Streptococcus mitis/oralis group(A) 11/14/2024 1:25 PM EDT [facility] Comment: This result was determined by MALDI tof mass spectrometry using the PanX[employer] database and is for research use only. The organism value for this result has been updated. These results have been appended to the previously preliminary verified report. This is a corrected result. Previous organism was Mixed skin clifton on 11/10/2024 at 0718 EDT. Culture Staphylococcus pseudintermedius( A) 11/14/2024 1:25 PM EDT [facility] Comment: This isolate has been identified using the FDA Approved Ud[employer]er CA System This is an appended report. These results have been appended to a previously final verified report. Swab Topography unknown / Unknown 11/06/2024 11:29 AM EDT 11/06/2024 12:19 PM EDT Comment:Pre-op diagnosis: Surgical wound infection [T81.49XA] Narrative [facility] - 11/14/2024 1:25 PM [...] Nowak MD LAB MICROBIOLOGY - GENERAL [facility] Edited Result - Final [facility] [address] [place] [address] * Routine Culture and Gram Stain (11/06/2024 11:28 AM EDT) Culture No growth at day 4 2024 11:24 AM EDT [facility] Gram Stain Result No organisms seen 11/10/2024 11:24 AM EDT [facility] Gram Stain Result No polymorphonuclear leukocytes seen 11/10/2024 11:24 AM EDT [facility] Swab Topography unknown / Unknown 11/06/2024 11:28 AM EDT 11/06/2024 12:20 PM EDT Comment:Pre-op diagnosis: Surgical wound infection [T81.49XA] Nathaly Nowak MD LAB MICROBIOLOGY - GENERAL ORDE LAM Final Result Performing Organization Address [facility] Co de Phone Number [facility] [address] [place] [address] * Fungal Culture, Routine (11/06/2024 11:28 AM EDT) Culture No Fungal Growth at 1 Week 11/13/2024 8:29 AM EDT [facility] Swab Topography unknown / Unknown 11/06/2024 11:28 AM EDT 11/06/2024 12:20 PM EDT Comment:Pre-op diagnosis: Surgical wound infection [T81.49XA] Nathaly Nowak MD LAB MICROBIOLOGY - GENERAL ORDE LAM Final Result Performing Organization Address [facility] [place] [address] * Anaerobic Culture (11/06/2024 11:28 AM EDT) Culture No growth at day 4 11/13/2024 12:53 PM EDT [facility] Swab Topography unknown / Unknown 11/06/2024 11:28 AM EDT 11/06/2024 12:20 PM EDT Comment:Pre-op diagnosis: Surgical wound infection [T81.49XA] Result [facility] Nathaly Nowak MD LAB MICROBIOLOGY - GENERAL ATIYA FRITZ Final Result Performing Organization Address City/[facility] Co de Phone Number [facility] [address] [place] [address] * (ABNORMAL) POCT glucose meter (11/06/2024 10:16 AM EDT) POCT Glucose 194(H) 74 - 99 mg/dL 11/06/2024 10:18 AM EDT [facility] Comment:Accuracy of a glucos e [...] Comment 11/06/2024 10:18 AM EDT [facility] Consultant ID Lacy Griffin 11/07/19 10:18 AM EDT HEALTH[facility]ARE LAB Device ID [id number] 11/06/2024 10:18 AM EDT [facility] Specimen Type POC Capillary 11/06/2024 10:18 AM EDT [facility] Blood Capillary blood specimen / Unknown 11/06/2024 10:16 AM EDT 11/06/2024 10:18 AM EDT us Nathaly Nowak MD LAB POINT OF CARE TE ST DOCKED DEVICE UNSOLICITED RESULTS Final Result Performing Organization Address City/[facility]/ZIP Co de Phone Number HEALTHCARE [facility] [address] [place] [address] * (ABNORMAL) POCT glucose meter (11/06/2024 5:58 AM EDT) [facility] POCT Glucose 182(H) 74 - 99 mg/dL [...] Comment 11/06/2024 6:01 AM EDT [facility]ALTH[facility] Consultant ID Raj Laird 11/07/19 6:01 AM EDT HEALTHCARE LAB Device ID [id number] 11/06/2024 6:01 AM EDT [facility]ALTH[facility]ARE LAB Specimen Type POC Capillary 11/06/2024 6:01 AM EDT [facility] Blood Capillary blood specimen / Unknown 11/06/2024 5:58 AM EDT 11/06/2024 6:01 AM EDT us Nathaly Nowak MD LAB POINT OF CARE TE ST DOCKED DEVICE UNSOLICITED RESULTS Final Result [facility] [address] [place] [address] * (ABNORMAL) POCT glucose meter (11/06/2024 5:36 [...] Comment 11/06/2024 5:38 AM EDT [facility]ARE [facility] Consultant ID Shahid Sanches 11/06/2024 5:38 AM EDT HEALTHCARE LAB Device ID [id number] 11/06/2024 5:38 AM EDT [facility] Specimen Type POC Capillary 11/06/2024 5:38 AM EDT [facility] Blood Capillary blood specimen / Unknown 11/06/2024 5:36 AM EDT 11/06/2024 5:38 AM EDT Nathaly Nowak MD LAB POINT OF CARE TE ST DOCKED DEVICE UNSOLICITED RESULTS Final Result [facility] [address] [place] [address] * (ABNORMAL) Hemoglobin A1c (11/06/2024 1:07 AM EDT) Hemoglobin A1c 7.6(H) <5.7 % 11/06/2024 11:09 AM EDT [facility] Blood Venous blood specimen / Unknown Venipuncture / Unknown 11/06/2024 1:07 AM EDT 11/06/2024 1:26 AM EDT Narrative [facility] - 11/06/2024 11:09 AM EDT HA1C Interpretive Data: Diagnosis of Diabetes: Diabetic > or = 6.5% Pre-diabetic 5.7 to 6.4% Non-diabetic < or = 5.6% Glycemic Targets for Type I and Type II Diabetics: Non- Adults <7.0% Adults <6.0% Children and Adolescents <7.5% Source: [place] [employer]. Standards of medical care in diabetes,2017. Diabetes Care.2017:40 (suppl 1):S1-S135. Result [facility] Nathaly Nowak MD LAB BLOOD ORDERABLES Final Resu lt Performing Organization Address [facility] Co de Phone Number [facility] [address] [place] [address] * Blood Culture (Aerobic/Anaerobet Set) (11/06/2024 1:07 AM EDT) Culture No growth at day 5 11/11/2024 2:49 AM EDT [facility] Blood Structure of right hand / Unknown Venipuncture / Unknown 11/06/2024 1:07 AM EDT 11/06/2024 2:36 AM EDT Nathaly Nowak MD LAB MICROBIOLOGY - GENERAL ORDE RABONEIDA Final Result Performing Organization Address [facility] Co de Phone Number [facility] [address] [place] [address] * Blood Culture (Aerobic/Anaerobet Set) (11/06/2024 1:07 AM EDT) Culture No growth at day 5 11/11/2024 3:01 AM EDT [facility] Blood Structure of antecubital vein / Unknown Venipuncture / Unknown 11/06/2024 1:07 AM EDT 11/06/2024 2:36 AM EDT Nathaly Nowak MD LAB MICROBIOLOGY - GENERAL ORDE RABONEIDA Final Result Performing Organization Address [facility] Co de Phone Number [facility] [address] [place] [address] * (ABNORMAL) Basic metabolic panel (11/06/2024 1:07 AM EDT) Glucose, Plasma 207(H) 74 - 99 mg/dL 11/06/2024 1:41 AM EDT [facility] BUN, Plasma 20 8 - 23 mg/dL 11/06/2024 1:41 AM EDT [facility] Creatinine, Plasma 0.92 0.70 - 1.20 mg/dL 11/06/2024 1:41 AM EDT [facility] BUN/Creatinine Ratio 22 11/06/2024 1:41 AM EDT [facility] Sodium, Plasma 136 136 - 145 mmol/L 11/06/2024 1:41 AM EDT [facility] Potassium, Plasma 4.5 3.6 - 4.9 mmol/L 11/06/2024 1:41 AM EDT [facility] Chloride, Plasma 104 97 - 107 mmol/L 11/06/2024 1:41 AM EDT [facility] CO2, Plasma 22 22 - 29 mmol/L 11/06/2024 1:41 AM EDT [facility] Anion Gap 10 6 - 16 mmol/L 11/06/2024 1:41 AM EDT [facility] Total Calcium, Plasma 9.0 8.9 - 10.2 mg/dL 11/06/2024 1:41 AM EDT [facility] eGFRcr 92.3 mL/min/1.7 3m*2 11/06/2024 1:41 AM EDT [facility] Comment:Reported eGFRcr in m L/min/1.73m2 is based the CKD-EPI 2020 equation that does not use a race coefficient. Blood Venous blood specimen / Unknown Venipuncture / Unknown 11/06/2024 1:07 AM EDT 11/06/2024 1:12 AM EDT us Nathaly Nowak MD LAB BLOOD ORDERABLES Final Resu lt [facility] [address] [place] [address] * Phosphorus (11/06/2024 1:07 AM EDT) Phosphorus, Plasma 3.2 2.5 - 4.5 mg/dL 11/06/2024 1:41 AM EDT [facility] Blood Venous blood specimen / Unknown Venipuncture / Unknown 11/06/2024 1:07 AM EDT 11/06/2024 1:12 AM EDT us Nathaly Nowak MD LAB BLOOD ORDERABLES Final Resu lt Performing Organization Address City/[facility]/ZIP Co de Phone Number [facility] [address] [place] [address] * Magnesium (11/06/2024 1:07 AM EDT) Magnesium, Plasma 2.2 1.9 - 2.4 mg/dL 11/06/2024 1:41 AM EDT [facility] Blood Venous blood specimen / Unknown Venipuncture / Unknown 11/06/2024 1:07 AM EDT 11/06/2024 1:12 AM EDT us Nathaly Nowak MD LAB BLOOD ORDERABLES Final Resu lt Performing Organization Address [facility] Co de Phone Number [facility] [address] [place] [address] * (ABNORMAL) CBC (11/06/2024 1:07 AM EDT) WBC Count 9.70 3.70 - 10.30 10*3/uL LAB HEMATOLOGY METHOD 11/06/2024 1:19 AM EDT [facility] RBC Count 2.89(L) 4.60 - 6.10 10*6/uL LAB HEMATOLOGY METHOD 11/06/2024 1:19 AM EDT [facility] HGB 8.8(L) 13.7 - 17.5 g/dL LAB HEMATOLOGY METHOD 11/06/2024 1:19 AM EDT [facility] HCT 26.2(L) 40.0 - 51.0 % LAB HEMATOLOGY METHOD 11/06/2024 1:19 AM EDT [facility] Platelet Count 542(H) 155 - 369 10*3/uL LAB HEMATOLOGY METHOD 11/06/2024 1:19 AM EDT [facility] MCV 91 79 - 98 fL LAB HEMATOLOGY METHOD 11/06/2024 1:19 AM EDT [facility] MCH 30.4 26.0 - 32.0 pg LAB HEMATOLOGY METHOD 11/06/2024 1:19 AM EDT [facility] MCHC 33.6 30.7 - 35.5 g/dL LAB HEMATOLOGY METHOD 11/06/2024 1:19 AM EDT [facility] RDW 13.2 11.5 - 14.5 % LAB HEMATOLOGY METHOD 11/06/2024 1:19 AM EDT [facility] MPV 8.7(L) 8.8 - 12.5 fL LAB HEMATOLOGY METHOD 11/06/2024 1:19 AM EDT [facility] nRBC 0.0 <=0.0 per 100 WBCs LAB HEMATOLOGY METHOD 11/06/2024 1:19 AM EDT [facility] Blood Venous blood specimen / Unknown Venipuncture / Unknown 11/06/2024 1:07 AM EDT 11/06/2024 1:12 AM EDT us Nathaly Nowak MD LAB BLOOD ORDERABLES Final Resu lt Performing Organization Address City/[facility]/ZIP Co de Phone Number [facility] [address] [place] [address] * Gold Top (11/06/2024 12:58 AM EDT) Extra Hold for add-ons 11/06/2024 3:21 AM EDT [facility] Comment:Auto resulted. Blood Venous blood specimen / Unknown 11/06/2024 12:58 AM EDT 11/06/2024 1:13 AM EDT us Nathaly Nowak MD LAB BLOOD ORDERABLES Final Resu lt [facility] [address] [place] [address] * Gold Top (11/06/2024 12:58 AM EDT) Extra Hold for add-ons 11/06/2024 3:21 AM EDT [facility] Comment:Auto resulted. Blood Venous blood specimen / Unknown 11/06/2024 12:58 AM EDT 11/06/2024 1:13 AM EDT us Nathaly Nowak MD LAB BLOOD ORDERABLES Final Resu lt Performing Organization Address City/[facility]/ZIP Co de Phone Number [facility] [address] [place] [address] * Light Green Top (11/06/2024 12:58 AM EDT) Extra Hold for add-ons 11/06/2024 3:21 AM EDT [facility] Comment:Auto resulted. Blood Venous blood specimen / Unknown 11/06/2024 12:58 AM EDT 11/06/2024 1:13 AM EDT us Nathaly Nowak MD LAB BLOOD ORDERABLES Final Resu lt Performing Organization Address [facility] Co de Phone Number [facility] [address] [place] [address] * Light Blue Top (11/06/2024 12:58 AM EDT) Extra Hold for add-ons 11/06/2024 3:21 AM EDT [facility] Comment:Auto resulted. Blood Venous blood specimen / Unknown 11/06/2024 12:58 AM EDT 11/06/2024 1:13 AM EDT us Nathaly Nowak MD LAB BLOOD ORDERABLES Final Resu lt Performing Organization Address [facility]/ZIP Co de Phone Number [facility] [address] [place] [address] * Light Blue Top (11/06/2024 12:58 AM EDT) Extra Hold for add-ons 11/06/2024 3:21 AM EDT [facility] Comment:Auto resulted. Blood Venous blood specimen / Unknown 11/06/2024 12:58 AM EDT 11/06/2024 1:13 AM EDT us Nathaly Nowak MD LAB BLOOD ORDERABLES Final Resu lt [facility] [address] [place] [address] * (ABNORMAL) POCT glucose meter (11/06/2024 12:45 [...] Comment 11/06/2024 12:48 AM EDT [facility]ALTH[facility]ARE [facility] Consultant ID Raj Laird 11/07/19 12:48 AM EDT HEALTHCARE LAB Device ID [id number] 11/06/2024 12:48 AM EDT HEALTHCARE LAB Specimen Type POC Capillary 11/06/2024 12:48 AM EDT HEALTHCARE LAB Blood Capillary blood specimen / Unknown 11/06/2024 12:45 AM EDT 11/06/2024 12:48 AM EDT Nathaly Nowak MD LAB POINT OF CARE TE ST DOCKED DEVICE UNSOLICITED RESULTS Final Result [facility] [address] [place] [address] documented in this encounter Visit Diagnoses Diagnosis [...] needed, Starting on Mon11/06/24 at 0031, Until [facility] 11/14/24 at 1804, Routine, line care sodium [...] needed, Starting on Mon11/06/24 at 0753, Until [facility] 11/14/24 at 1804, Routine, On Unit - Preprocedure, line care sodium chloride 0.9 % flush 10 mL 10 mL, Intravenous, Every 12 hours, First dose on [facility] 11/09/24 at 1515, Until Discontinued, Routine Given 11/14/2024 2:42 PM EDT 10 mL Given 11/14/2024 3:03 AM EDT 10 mL Given 11/13/2024 4:43 PM EDT 10 mL Sodium Hypochlorite (Dakin's (HALF-Strength)) external solution 1 Application Irrigation, Daily, First dose on [facility] 11/09/24 at 0945, Until Discontinued, Routine [...] documented as of this encounter Care Teams Green Ware Caster Relationship Specialty Start Date End Date Asad Victor MD [address] [place] [address] PCP - General 10/07/22 documented as of this encounter
--- OUTSIDE RECORDS SUMMARY | 2024-11-06 10:08 | XMS_ITS | Encounter Summary ---
Author Organization Healthcare Address [address] [place] [address] Care Team Providers Care Brand Sales Manager Name Role Phone Asad Victor MD Primary Care Provider + [phone] Reason for Visit * Reason Comments Post-op Problem Wound Check * Auth/Cert (Routine) Specialty Diagnoses / Procedures Referred By Contac t Referred To Contact Diagnoses Wound infection Post-op Vasc Sx wounds - sx on 10/17 at Nathaly Nowak MD [address] [address] Phone: tel: fax: [facility] Emergency [facility] [address] [place] [address] Phone: tel: Referral ID Status Reason Start Date Expiration Date Visits Re quested Visits Authorized [id number] 1 1 Encounter Details Date Type Department Care Team (Late st Contact Info) Description 11/06/2024 10:08 AM EDT - 11/06/2024 11:38 AM EDT Surgery [facility] OPERATING ROOM [address] [place] [address] Nathaly Nowak MD [id number] [place] [address] Left groin exploration and washout, [...] first t dino in the morning (EYE-CONTINUOUS CONVEYOR SCREEN DRIER) to steady your nerves or to get rid of a hangover? 0 10/18/2021 CAGE Questionnaire Score 0 022 Utilities Answer Date Recorded In the past 12 months has [employer], gas, oil, or water [employer] threatened to shut off services in your [...] Carmona with any questions or concerns at [phone]. It is important that you get your [...] Note Bev Borja 64 y.o. male CSN: [id number] Admission: 11/05/2024 9:45 PM Primary Problem: Wound infection Primary Cupola Charger Insulation: Primary Caregiver: Self Assistance Available at Discharge: [...] 30 days Follow-up: [facility] [address] [facility] [address] Go to Infusion Clinic. Please arrive at 11 am daily. [facility] [address] Go to Wound care clinic. First appointment is 1:10 pm. Please call [phone] with scheduling concerns. Discharge Transportation: Transportation Anticipated: medical transport Transportation Home at Discharge: Medical Transport Follow Up Transport: Transportation Needed to Follow up Appoinments: Medical Transport Additional Comments: Patient discharging home. No other SW needs identified. Mariia Monterroso ENDLESS TRACK VEHICLE SUPERVISOR * Discharge Summary - Melecio Echevarria DO - 11/14/2024 12:46 PM EDT Hospitalization Admit Date/Time: 11/05/2024 9:45 PM Admitting Attending: Nathaly Nowak Discharge Date: 11/14/2024 Discharge Attending Physician: Nathaly Nowak MD PCP name and Address: Asad Victor MD (Inactive) [address] [place] [address] / [place] [address] [address] Referring provider name and address: Wade Cowart, DO [address] [place] [address] Chief Concern, Brief History of Present Illness, and Hospital Course Mr. Borja is a 64 y/o male that presented to [facility] on 11/06/2024 for surgical [...] Your Medications These medications were sent to [facility] Infusion Services - GLENDA Solorzano - [address], [place] [address] ertapenem injection micafungin injection Discharge Diagnosis Medical [...] [facility] 11/26/2024 2:30 PM [facility] 2 [facility] 11/26/2024 3:20 PM Elisabet Schuster PA COMPCHI [...] DO - 11/14/2024 10:25 AM EDT Mr. oBrja is a 64 y/o male that presented to [facility] on 11/06/2024 for surgical [...] Note Bev Borja 64 y.o. male CSN: [id number] Admission: 11/05/2024 9:45 PM Primary Problem: Wound infection Wound vac to be delivered today by at bedside. SW sent referral/orders to [facility] wound care center (fax [phone]) and infusion clinic (fax [phone]). Plan to discharge tomorrow. SW will continue to follow. Mariia Monterroso ENDLESS TRACK VEHICLE SUPERVISOR * Progress Notes - Bianca Knight PharmD - 11/13/2024 12:55 PM EDT Vancomycin therapy has been stopped per ID recommendation. Pharmacist will sign off from dosing and monitoring vancomycin. Please re- consult a pharmacist if more vancomycin is indicated. Bianca Knight PharmD, [facility] * Progress Notes - Ailin [...] Lumen PICC Antimicrobial Regimen: IV Ertapenem 1g [id number] start date:11/06/2024 Projected End date:12/18/2024 IV Micafungin 150mg [id number] Start date: 11/12/2024 Projected End Date: 12/24/2024 [...] OPAT Team Attn: Dr Kraus Fax #: [phone] Appointments: (Dr Appiah 08/02/2024 at 2.30pm) at: [facility]: [address] [place] [address] (Select Option 3 for IV Antibiotic / PICC line related issues) For questions regarding OPAT prior to discharge, reach out to the OPAT team via [employer] Secure Chat (Group: OPAT Referral Team). For all questions regarding OPAT after discharge should be directed to the OPAT Team at (Select Option 3 for IV Antibiotics/PICC Issues) between 8am-5pm. After 5 pm, or during weekends/ holidays, please call the paging breaker machine operator at to reach the on-call [...] the original note were not included. [facility] Department of Surgery Division of Vascular Surgery Surgery Progress Note 11/13/24 Bev Borja Subjective Subjective: HPI 64yoM PMHx COPD, T2DM, HLD, HTN, RLS, CAD s/p PCI (on Xarelto) s/p pacemaker c/b left SANDIP pseudoaneurysm s/p thrombin injection 09/21/24, CLI s/p left femoral endarterectomy with EIA/SCRAPER TENDER stenting 10/17/24, [place] 09/21/24, CLI s/p left femoral endarterectomy with EIA/SCRAPER TENDER stenting 10/17/24, who [place] [...] the findings. Cardiac Device Check - PRE-OR [facility] EP-Device Clinic: Pre-operative CIED Report Assessment and Sara-Procedural Reommendations: Name: Bev Borja Date: 10/17/2024 : 1960 Age: 64 y.o. 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 Lead integrity [...] recommendations. Supporting reports can be found in [employer] media file. Micro: Susceptibility data from last [...] Units Date/Time Tissue Culture and Gram Stain [[id number]] (Abnormal) (Susceptibility) Collected: 11/06/24 1134 Order Status: Completed Specimen: Tissue from Other (specify site) Updated: 11/12/24 1334 Culture Moderate Growth 2+ Enterobacter cloacae complex Comment: This isolate has been identified using the FDA Approved Dimple Doughyper CA System The organism value for this result has been updated. These results have been appended to the previously preliminary verified report. Edited result: Previously reported as Gram Negative Jesus on 11/07/2024 at 1434 EDT. 2+ Streptococcus mitis/oralis group Comment: This isolate has been identified using the FDA Approved MALDI Calendlyyper CA System The organism value for this result has been updated. These results have been appended to the previously preliminary verified report. 2+ Pasteurella stomatis Comment: This result was determined by MALDI tof mass spectrometry using the [employer] SARL database and is for research use only. [...] stewardship team. Comprehensive GI Panel by PCR [[id number]] (Normal) Collected: 11/12/24 0950 Order Status: Completed [...] if clinically indicated. Clostridiodes (Clostridium) difficile PCR [[id number]] (Normal) Collected: 11/12/24 0950 Order Status: Completed [...] high complexity clinical laboratory testing. Anaerobic Culture [[id number]] Collected: 11/06/24 1128 Order Status: Completed Specimen: Swab from Other (specify site) Updated: 11/12/24 1118 Culture No growth at day 4 Fungal Culture, Tissue and ISIDRO [[id number]] (Abnormal) Collected: 11/06/24 1134 Order Status: Completed Specimen: Tissue from Other (specify site) Updated: 11/12/24 1033 Culture Reading Mycological 4 Weeks [place] Sana parapsilosis Comment: This isolate has been identified using the FDA Approved MALDI Calendlyyper CA System The organism value for this result has been updated. These results have been appended to the previously preliminary verified report. Edited result: Previously reported as Yeast on 11/11/2024 at 1317 EDT. ISIDRO No fungal elements seen Additional Susceptibilities and/or Identification [[id number]] Collected: 11/11/24 1240 Order Status: Completed Specimen: Tissue from Wound (specify site): Additional Susceptibilities and/or Identification [[id number]] Collected: 11/11/24 1238 Order Status: Completed Specimen: Tissue from Wound (specify site): Additional Susceptibilities and/or Identification [[id number]] Collected: 11/11/24 1237 Order Status: Completed Specimen: Tissue from Wound (specify site): AFB Culture, Non Respiratory Source and Acid Fast Stain [[id number]] Collected: 11/06/24 1134 Order Status: Completed Specimen: Tissue from Other (specify site) Updated: 11/11/24 0938 AFB Culture No Mycobacterial Growth <1 Week Acid Fast Stain No acid fast bacilli seen Blood Culture (Aerobic/Anaerobet Set) [[id number]] Collected: 11/06/24106 Order Status: Completed Specimen: Blood from AC, Left Updated: 11/11/24 0301 Culture No growth at day 5 Blood Culture (Aerobic/Anaerobet Set) [[id number]] Collected: 11/06/24106 Order Status: Completed Specimen: Blood [...] [facility]. [facility] and [...] to stay a facility, plan for [facility] daily IV abx. Plan for ID [...] Prevent or Manage Pain Flowsheets (Taken 11/11/2024 3848 by Jonathan Vale RN) Sensory Stimulation Regulation: care clustered lighting decreased quiet environment promoted Medication Review/Management: medications reviewed * Consults - Anabel Ovalle RD - 11/12/2024 9:59 AM EDT Adult Nutrition Evaluation Note Bev Borja 64 y.o. male CSN: [id number] Room/Bed 682/682B Nutrition evaluation type: assessment Reason [...] (194 lb 3.6 oz) BMI (Calculated): 30.41 [place] Body Weight (kg): 67.3 Percent [place] Body Weight: 131 Adjusted Body Weight (kg): [...] oz) Estimated Needs: Kcal/ K-30 Kcal Provided: 2229-7968 Kcal Needs Based On: Adjusted weight Gm Protein/ Kg : 1.2-1.5 Protein Provided: 87-108 Protein Needs Based On: Adjusted weight Metabolic Cart Study Results: Current Nutrition Intake: Diet Order: Adult Diet Diet Texture: Regular Adult Carbohydrate Restriction: Consistent CHO 1 (1122-1748 Jatinder, 65 g/meal) Percent Meals Eaten (%): avg 63% x 6 emals Diet Experience and Nutrition History: Diet Education Provided: Will monitor Pertinent home medications: clopidogrel, docusate sodium, Lantus, Humalog, lisinopril, metoprolol tartrate, pravastatin, rivaroxaban, ropinirole, tamsulosin Hoahaoism needs: Nutrition Focused Physical Exam: Physical exam [...] ENDARTERECTOMY N/A 2017 Endarterectomy Carotid Artery from [facility] CORONARY ANGIOPLASTY Left Coronary Angiography With Concomitant Left Heart Catheterization from [facility] CORONARY ARTERY BYPASS GRAFT N/A 2018 3V ELBOW SURGERY Right ENDARTERECTOMY Left 10/17/2024 common/SFA/Profunda thromboendarterectomy, EIA/SCRAPER TENDER stent HERNIA REPAIR KNEE ARTHROSCOPY Left VASCULAR SURGERY Left 09/21/2024 SCRAPER TENDER pseudoaneurym injection [3] Social History Tobacco [...] from the original note were not included. [facility] Department of Surgery Division of Vascular Surgery Surgery Progress Note 11/12/24 Bev Perez Cristoferkeo Subjective Subjective: HPI 64yoM PMHx COPD, T2DM, HLD, HTN, RLS, CAD s/p PCI (on Xarelto) s/p pacemaker c/b left SANDIP pseudoaneurysm s/p thrombin injection 09/21/24, CLI s/p left femoral endarterectomy with EIA/SCRAPER TENDER stenting 10/17/24, [place] 09/21/24, CLI s/p left femoral endarterectomy with EIA/SCRAPER TENDER stenting 10/17/24, who [place] [...] the findings. Cardiac Device Check - PRE-OR [facility] EP-Device Clinic: Pre-operative CIED Report Assessment and Sara-Procedural Reommendations: Name: Bev Borja Date: 10/17/2024 : 1960 Age: 64 y.o. 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 Lead integrity [...] recommendations. Supporting reports can be found in [employer] media file. Micro: Susceptibility data from last [...] Units Date/Time Tissue Culture and Gram Stain [[id number]] (Abnormal) (Susceptibility) Collected: 11/06/24 1134 Order Status: Completed Specimen: Tissue from Other (specify site) Updated: 11/12/24 1334 Culture Moderate Growth 2+ Enterobacter cloacae complex Comment: This isolate has been identified using the FDA Approved Profiger CA System The organism value for this result has been updated. These results have been appended to the previously preliminary verified report. Edited result: Previously reported as Gram Negative Jesus on 11/07/2024 at 1434 EDT. 2+ Streptococcus mitis/oralis group Comment: This isolate has been identified using the FDA Approved Profiger CA System The organism value for this result has been updated. These results have been appended to the previously preliminary verified report. 2+ Pasteurella stomatis Comment: This result was determined by MALDI tof mass spectrometry using the [employer] SARL database and is for research use only. [...] stewardship team. Comprehensive GI Panel by PCR [[id number]] (Normal) Collected: 11/12/24 0950 Order Status: Completed [...] if clinically indicated. Clostridiodes (Clostridium) difficile PCR [[id number]] (Normal) Collected: 11/12/24 0950 Order Status: Completed [...] high complexity clinical laboratory testing. Anaerobic Culture [[id number]] Collected: 11/06/24 1128 Order Status: Completed Specimen: Swab from Other (specify site) Updated: 11/12/24 1118 Culture No growth at day 4 Fungal Culture, Tissue and ISIDRO [[id number]] (Abnormal) Collected: 11/06/24 1134 Order Status: Completed Specimen: Tissue from Other (specify site) Updated: 11/12/24 1033 Culture Reading Mycological 4 Weeks [place] Sana parapsilosis Comment: This isolate has been identified using the FDA Approved Dimple Doughyper CA System The organism value for this result has been updated. These results have been appended to the previously preliminary verified report. Edited result: Previously reported as Yeast on 11/11/2024 at 1317 EDT. ISIDRO No fungal elements seen Additional Susceptibilities and/or Identification [[id number]] Collected: 11/11/24 1240 Order Status: Completed Specimen: Tissue from Wound (specify site): Additional Susceptibilities and/or Identification [[id number]] Collected: 11/11/24 1238 Order Status: Completed Specimen: Tissue from Wound (specify site): Additional Susceptibilities and/or Identification [[id number]] Collected: 11/11/24 1237 Order Status: Completed Specimen: Tissue from Wound (specify site): AFB Culture, Non Respiratory Source and Acid Fast Stain [[id number]] Collected: 11/06/24 1134 Order Status: Completed Specimen: Tissue from Other (specify site) Updated: 11/11/24 0938 AFB Culture No Mycobacterial Growth <1 Week Acid Fast Stain No acid fast bacilli seen Blood Culture (Aerobic/Anaerobet Set) [[id number]] Collected: 11/06/24106 Order Status: Completed Specimen: Blood from AC, Left Updated: 11/11/24 0301 Culture No growth at day 5 Blood Culture (Aerobic/Anaerobet Set) [[id number]] Collected: 11/06/24106 Order Status: Completed Specimen: Blood [...] OSH. On 11/06, pt went to the [facility] vascular surgery for left groin exploration [...] stay a facility, plan for [facility] daily IV abx. Plan for ID outpatient [...] mL IVPB (vial adapter required) 2 g [id number] Reid Daniels MD 36.7 mL/hr at 11/12/24 [...] PM Anthony Reyes MD 0.4 mg at [id number] Vancomycin HCl in NaCl (Vancocin) IVPB 1,000 [...] send him home on micafungin as [place] Sana parapsilosis grew and we do not [...] Note Bev Borja 64 y.o. male CSN: [id number] Admission: 11/05/2024 9:45 PM Primary Problem: Wound infection Patient refusing inpatient placement for IV abx. [facility] infusion clinic can provide treatment. Face sheet, IV abx orders, and order for PICC care/labs/dressing changes need to be faxed to [phone]. Voicemail left with wound care clinic. Wound vac approved per , delivery pending. Crysll continue to follow. Mariia Monterroso ENDLESS TRACK VEHICLE SUPERVISOR * Progress Notes - Dotty Sethi [...] the findings. Cardiac Device Check - PRE-[facility] EP-Device Clinic: Pre-operative CIED Report Assessment and Sara-Procedural Reommendations: Name: Bev Borja Date: 10/17/2024 : 1960 Age: 64 y.o. 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 Lead integrity [...] recommendations. Supporting reports can be found in [employer] media file. Micro: Susceptibility data from last [...] Non Respiratory Source and Acid Fast Stain [[id number]] Collected: 11/06/24 1134 Order Status: Completed Specimen: Tissue from Other (specify site) Updated: 11/11/24 0938 AFB Culture No Mycobacterial Growth <1 Week Acid Fast Stain No acid fast bacilli seen Blood Culture (Aerobic/Anaerobet Set) [[id number]] Collected: 11/06/24106 Order Status: Completed Specimen: Blood from AC, Left Updated: 11/11/24 0301 Culture No growth at day 5 Blood Culture (Aerobic/Anaerobet Set) [[id number]] Collected: 11/06/24 010 Order Status: Completed Specimen: Blood from Hand, Right Updated: 11/11/24 0249 Culture No growth at day 5 Anaerobic Culture [[id number]] Collected: 11/06/24 1128 Order Status: Completed Specimen: Swab from Other (specify site) Updated: 11/10/24 1441 Culture No growth at day 4 Routine Culture and Gram Stain [[id number]] Collected: 11/06/24 1128 Order Status: Completed Specimen: Swab from Other (specify site) Updated: 11/10/24 1124 Culture No growth at day 4 Gram Stain Result No organisms seen No polymorphonuclear leukocytes seen Anaerobic Culture [[id number]] (Abnormal) Collected: 11/06/24 112 Order Status: Completed Specimen: Swab from Other (specify site) Updated: 11/10/24 0718 Culture No anaerobes isolated Mixed skin clifton Comment: The organism value for this result has been updated. These results have been appended to the previously preliminary verified report. Narrative: Mixed Skin Clifton includes Streptococcus mitis/oralis group and Staphylococcus Pseudintermedius Anaerobic Culture [[id number]] (Abnormal) Collected: 11/06/24 1134 Order Status: Completed [...] OSH. [facility] and [...] mL IVPB (vial adapter required) 2 g [id number] Reid Daniels MD 36.7 mL/hr at 11/11/24 [...] PM Anthony Reyes MD 0.4 mg at [id number] Vancomycin HCl in NaCl (Vancocin) IVPB 1,000 [...] from the original note were not included. [facility] Department of Surgery Division of Vascular Surgery Surgery Progress Note 11/11/24 Bev Borja Subjective Subjective: HPI 64yoM PMHx COPD, T2DM, HLD, HTN, RLS, CAD s/p PCI (on Xarelto) s/p pacemaker c/b left SANDIP pseudoaneurysm s/p thrombin injection 09/21/24, CLI s/p left femoral endarterectomy with EIA/SCRAPER TENDER stenting 10/17/24, [place] 09/21/24, CLI s/p left femoral endarterectomy with EIA/SCRAPER TENDER stenting 10/17/24, [place] [...] by: Reid Daniels MD at 11/11/2024 0804 Dispo: Continue Current Level of Care Reid Daniels MD Cosigned by Neil Isaca MD at 11/11/2024 6:40 PM EDT Associated [...] to follow, Submitted by: Kalpesh Lord PharmD, [facility] 11/10/2024 12:45 PM * Care [...] 09/21/24, CLI s/p left femoral endarterectomy with EIA/SCRAPER TENDER stenting 10/17/24, [place] [...] 09/21/24, CLI s/p left femoral endarterectomy with EIA/SCRAPER TENDER stenting 10/17/24, [place] [...] Barraza RN Authorized by: Nathaly Nowak MD [place] Protocol: Verbal consent obtained?: Yes Written consent [...] selection rationale: Left pacemaker Catheter Lot #: [id number] Catheter grinder: [employer] Catheter placed: Single lumen Catheter size: 4 [...] 09/21/24, CLI s/p left femoral endarterectomy with EIA/SCRAPER TENDER stenting 10/17/24, [place] 09/21/24, CLI s/p left femoral endarterectomy with EIA/SCRAPER TENDER stenting 10/17/24, who [place] [...] Level of Care [place] M4 student [facility] Cosigned by Nathaly Nowak MD at 11/11/2024 [...] PT session. Patient reports he went to [facility] 12th floor via w/c yesterday [...] Mobility: Ambulatory- community (was utilizing scooter at [employer] since discharge) Mobility Dickinson: Independent gait with device History of Falls: [...] Mobility Bed Mobility Exam: Scooting/Bridging Level of Dickinson: Modified independence Bed Mobility Exam: Supine to Sit Level of Dickinson: Modified Dickinson Transfers Transfer Exam: Sit to stand Level of Dickinson: Modified independence Assistive Device: Rollator Transfer Exam: Stand to Sit Level of Dickinson: Modified independence Assistive Device: Rollator Ambulation Device: [...] maintain/improve functional mobility and endurance. Standardized Assessments [facility] 6-Clicks Mobility Assessment Difficulty patient [...] 3-5 steps with a railing?: A little [facility] 6-Clicks Mobility Assessment Total : [...] Mobility Ambulatory- community (was utilizing scooter at [employer] since discharge) Mobility Dickinson Independent gait with device History of Falls [...] distal to knee) BED MOBILITY Level of Dickinson Physical/Non-physical Assist Adaptive Equipment Utilized Scooting/ Bridging Modified independence Supine to Sit Modified Dickinson TRANSFERS Level of Dickinson Physical/Non-physical Assist Adaptive Equipment Utilized Sit to Stand Modified independence Rollator Stand to sit Modified independence Rollator Toilet Transfer Modified independence Grab bar FUNCTIONAL MOBILITY Ambulation Modified independent 200ft x2 with seated rest break between bouts; RPE 5-7/10. Cues forsafety with rollator brakes. Rollator Comments BALANCE Postural Appearance Posture: Within Functional Limits Level of Dickinson Balance Support Static Sit Independent Feet supported Dynamic Sit Independent Feet supported Static Stand Independent Right upper extremity support, Left upper extremity support (via rollator) Dynamic Stand Independent Right upper extremity support, Left upper extremity support (via rollator) STANDARDIZED ASSESSMENTS [facility] 6-Click Daily Activities Help from Other: Don/Doff Regular Lower Body Clothings: None Help From Other: Bathing: None Help From Other: Toileting: None Help From Other: Don/Doff Upper Body Clothings: None Help From Other: Grooming: None Help From Other: Eating Meals: None [facility] 6 Click - Daily Activities Score: 24 [...] needed areas of treatment space. Level of Dickinson Interventions Grooming Modified independent Standing sinkside Pt [...] Note Bev Borja 64 y.o. male CSN: [id number] Admission: 11/05/2024 9:45 PM Primary Problem: Wound [...] follow and assist as needed. Mariia Monterroso ENDLESS TRACK VEHICLE SUPERVISOR * Progress Notes - Bianca Knight [...] from the original note were not included. [facility] Department of Surgery Division of Vascular Surgery Surgery Progress Note 11/08/24 Bev Borja Subjective Subjective: HPI 64yoM PMHx COPD, T2DM, HLD, HTN, RLS, CAD s/p PCI (on Xarelto) s/p pacemaker c/b left SANDIP pseudoaneurysm s/p thrombin injection 09/21/24, CLI s/p left femoral endarterectomy with EIA/SCRAPER TENDER stenting 10/17/24, who [place] [place] [...] completed 10/19 Pseudoaneurysm of left femoral artery ([facility]) COPD (chronic obstructive pulmonary disease) ([facility]) Overview Signed 10/18/2021 7:30 PM by Gallo Gallardo MD Not on home inhalers A-fib ([facility]) Overview Addendum 10/19/2021 10:39 AM by Giovanna Junior APRN Hold anticoagulation Metoprolol restarted BPH (benign prostatic hyperplasia) Overview Addendum 10/19/2021 10:41 AM by Giovanna Junior APRN Flomax restarted Subarachnoid hemorrhage ([facility]) Overview Addendum 10/20/2021 8:23 AM by Giovanna Junior APRN Left frontal, right occipital NSGY consulted - Repeat CTH showing slight worsening of tSAH - no need for further imaging, will continue to follow clinically 10/20: spoke with NSGY via phone and stated to hold ASA and Xarelto for 2 weeks Closed compression fracture of L3 lumbar vertebra, initial encounter ([facility]) Overview Signed 10/18/2021 7:35 PM by [...] Diverticulitis Overview Signed 10/18/2021 7:36 PM by Galol Gallardo MD Mild on CT, no abdominal [...] 09/21/24, CLI s/p left femoral endarterectomy with EIA/SCRAPER TENDER stenting 10/17/24, [place] 1960 Age: 64 y.o. 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 Lead integrity [...] recommendations. Supporting reports can be found in [employer] media file. Micro: Susceptibility data from last 90 days. Collected Specimen Info Organism 11/06/24 Tissue from Other (specify site) Gram Negative Jesus 11/06/24 Swab from Other (specify site) Enterobacter cloacae complex Results Procedure Component Value Units Date/Time Fungal Culture, Routine [[id number]] Collected: 11/06/24 1128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 Detected Not Detected 11/12/2024 2:47 PM EDT [facility] Vibrio species PCR Result Not Detected Not Detected 11/12/2024 2:47 PM EDT [facility] Vibrio cholerae PCR Result Not Detected Not Detected 11/12/2024 2:47 PM EDT [facility] Yersinia enterocolitica PCR Result Not Detected Not Detected 11/12/2024 2:47 PM EDT [facility] Enteroaggregative E. coli (EAEC) PCR Result Not Detected Not Detected 11/12/2024 2:47 PM EDT [facility] Enteropathogenic E. coli (EPEC) PCR Result Not Detected Not Detected 11/12/2024 2:47 PM EDT [facility] Enterotoxigenic E. coli (ETEC) lt/st PCR Result Not Detected Not Detected 11/12/2024 2:47 PM EDT [facility] Shiga-like Toxin-Producing E.coli (STEC) stx1/stx2 PCR Resu Not Detected Not Detected 11/12/2024 2:47 PM EDT [facility] E coli 0157 PCR Result Not Detected Not Detected 11/12/2024 2:47 PM EDT [facility] Shigella/Enteroinvas tam E. coli (EIEC) PCR Result Not Detected Not Detected 11/12/2024 2:47 PM EDT [facility] Cryptosporidium PCR Result Not Detected Not Detected 11/12/2024 2:47 PM EDT [facility] Cyclospora cayetanensis PCR Result Not Detected Not Detected 11/12/2024 2:47 PM EDT [facility] Entamoeba histolytica PCR Result Not Detected Not Detected 11/12/2024 2:47 PM EDT [facility] Giardia duodenalis (aka Giardia lamblia) PCR Result Not Detected Not Detected 11/12/2024 2:47 PM EDT [facility] Adenovirus F 40/41 PCR Result Not Detected Not Detected 11/12/2024 2:47 PM EDT [facility] Astrovirus PCR Result Not Detected Not Detected 11/12/2024 2:47 PM EDT [facility] Norovirus GI/GII PCR Result Not Detected Not Detected 11/12/2024 2:47 PM EDT [facility] Rotavirus A PCR Result Not Detected Not Detected 11/12/2024 2:47 PM EDT [facility] Sapovirus PCR Result Not Detected Not Detected 11/12/2024 2:47 PM EDT [facility] Stool Rectum structure / Unknown Non-blood Collection / Unknown 11/12/2024 9:50 AM EDT 11/12/2024 10:04 AM EDT Narrative [facility] - 11/12/2024 2:47 PM EDT [...] [place]/ZIP Co de Phone Number [facility] [address] [place] [address] * C-reactive protein (11/12/2024 9:48 AM EDT) [facility] CRP, Plasma <3.0 <=8.0 mg/L 11/12/2024 10:28 AM EDT [facility] Blood Venous blood specimen / Unknown Venipuncture / Unknown 11/12/2024 9:48 AM EDT 11/12/2024 9:59 AM EDT [facility] - 11/12/2024 10:28 AM EDT This CRP test is appropriate for assessment of infection, systemic inflammation and/or tissue injury. To assess cardiovascular disease risk order high sensitivity CRP (CRPH). Nathaly Nowak MD LAB BLOOD ORDERABLES Final Resu lt Performing Organization Address [facility] Co de Phone Number [facility] [address] [place] [address] * (ABNORMAL) POCT glucose meter (11/12/2024 8:20 AM EDT) [facility] POCT Glucose 138(H) 74 - [...] 11/12/2024 8:21 AM EDT [facility] Gas Meter Installer Helper ID Wade Feliciano 8:21 AM EDT [facility] Device ID [id number] 11/12/2024 8:21 AM EDT [facility] Specimen Type POC Capillary 11/12/2024 8:21 AM EDT [facility] Blood Capillary blood specimen / Unknown 11/12/2024 8:20 AM EDT 11/12/2024 8:21 AM EDT Nathaly Nowak MD LAB POINT OF CARE TE ST DOCKED DEVICE UNSOLICITED RESULTS Final Result Performing Organization Address [facility] de Phone Number [facility] [address] [place] [address] * (ABNORMAL) POCT glucose meter (11/11/2024 8:18 PM EDT) Pathologist [facility] POCT Glucose 248(H) 74 - 99 mg/dL [...] Comment 11/11/2024 8:20 PM EDT [facility] Gas Meter Installer Helper ID Nelda Gerber 11/12/19 8:20 PM EDT [facility] Device ID [id number] 11/11/2024 8:20 PM EDT [facility] Specimen Type POC Capillary 11/11/2024 8:20 PM EDT [facility] Blood Capillary blood specimen / Unknown 11/11/2024 8:18 PM EDT 11/11/2024 8:20 PM EDT us Nathaly Nowak MD LAB POINT OF CARE TE ST DOCKED DEVICE UNSOLICITED RESULTS Final Result Performing Organization Address City/[facility] de Phone Number [facility] [address] [place] [address] * (ABNORMAL) POCT glucose meter (11/11/2024 5:59 PM EDT) Pathologist [facility] POCT Glucose 147(H) 74 - 99 mg/dL [...] Comment 11/11/2024 6:01 PM EDT [facility] Gas Meter Installer Helper ID BradenWade 6:01 PM EDT [facility] Device ID [id number] 11/11/2024 6:01 PM EDT [facility] Specimen Type POC Capillary 11/11/2024 6:01 PM EDT [facility] Blood Capillary blood specimen / Unknown 11/11/2024 5:59 PM EDT 11/11/2024 6:01 PM EDT us Nathaly Nowak MD LAB POINT OF CARE TE ST DOCKED DEVICE UNSOLICITED RESULTS Final Result Performing Organization Address [facility] de Phone Number [facility] [address] [place] [address] * POCT glucose meter (11/11/2024 5:20 PM EDT) [facility] POCT Glucose 84 74 - [...] Comment 11/11/2024 5:22 PM EDT [facility] Gas Meter Installer Helper ID Wade Feliciano 5:22 PM EDT [facility] Device ID [id number] 11/11/2024 5:22 PM EDT [facility] Specimen Type POC Capillary 11/11/2024 5:22 PM EDT [facility] Blood Capillary blood specimen / Unknown 11/11/2024 5:20 PM EDT 11/11/2024 5:22 PM EDT us Nathaly Nowak MD LAB POINT OF CARE TE ST DOCKED DEVICE UNSOLICITED RESULTS Final Result Performing Organization Address City/[facility] Co de Phone Number [facility] [address] [place] [address] * AL NEGATIVE PRESSURE WOUND THERAPY DME [...] POCT glucose meter (11/11/2024 12:08 PM EDT) [facility] POCT Glucose 226(H) 74 - [...] Comment 11/11/2024 12:10 PM EDT [facility] Gas Meter Installer Helper ID Braden Wade Tobias 12:10 PM EDT [facility] [facility] Device ID [id number] 11/11/2024 12:10 PM EDT [facility] Specimen Type POC Capillary 11/11/2024 12:10 PM EDT [facility] Blood Capillary blood specimen / Unknown 11/11/2024 12:08 PM EDT 11/11/2024 12:10 PM EDT Nathaly Nowak MD LAB POINT OF CARE TE ST DOCKED DEVICE UNSOLICITED RESULTS Final Result [facility] [address] [place] [address] * (ABNORMAL) POCT glucose meter (11/11/2024 9:08 [...] for testing. Comment 11/11/2024 9:09 AM EDT [facility] Gas Meter Installer Helper ID Wade Feliciano 9:09 AM EDT [facility] Device ID [id number] 11/11/2024 9:09 AM EDT [facility] Specimen Type POC Capillary 11/11/2024 9:09 AM EDT [facility] Blood Capillary blood specimen / Unknown 11/11/2024 9:08 AM EDT 11/11/2024 9:09 AM EDT Nathaly Nowak MD LAB POINT OF CARE TE ST DOCKED DEVICE UNSOLICITED RESULTS Final Result [facility] [address] [place] [address] * POCT glucose meter (11/11/2024 8:27 AM [...] Comment 11/11/2024 8:28 AM EDT [facility] Gas Meter Installer Helper ID Wade Feliciano 8:28 AM EDT [facility] Device ID [id number] 11/11/2024 8:28 AM EDT [facility] Specimen Type POC Capillary 11/11/2024 8:28 AM EDT [facility] Blood Capillary blood specimen / Unknown 11/11/2024 8:27 AM EDT 11/11/2024 8:28 AM EDT us Nathaly Nowak MD LAB POINT OF CARE TE ST DOCKED DEVICE UNSOLICITED RESULTS Final Result [facility] [address] [place] [address] * (ABNORMAL) Basic Metabolic Panel, Plasma (11/11/2024 1:12 AM EDT) Glucose, Plasma 122(H) 74 - 99 mg/dL 11/11/2024 1:12 AM EDT [facility] BUN, Plasma 10 8 - 23 mg/dL 11/11/2024 1:12 AM EDT [facility] Creatinine, Plasma 0.82 0.70 - 1.20 mg/dL 11/11/2024 1:12 AM EDT [facility] BUN/Creatinine Ratio 12 11/11/2024 1:12 AM EDT [facility] Sodium, Plasma 137 136 - 145 mmol/L 11/11/2024 1:12 AM EDT [facility] Potassium, Plasma 3.9 3.6 - 4.9 mmol/L 11/11/2024 1:12 AM EDT [facility] Chloride, Plasma 110(H) 97 - 107 mmol/L 11/11/2024 1:12 AM EDT [facility] CO2, Plasma 20(L) 22 - 29 mmol/L 11/11/2024 1:12 AM EDT [facility] Anion Gap 7 6 - 16 mmol/L 11/11/2024 1:12 AM EDT [facility] Total Calcium, Plasma 7.6(L) 8.9 - 10.2 mg/dL 11/11/2024 1:12 AM EDT [facility] eGFRcr 97.5 mL/min/1.7 3m*2 11/11/2024 1:12 AM EDT [facility] Comment:Reported eGFRcr in m L/min/1.73m2 is based the CKD-EPI 2020 equation that does not use a race coefficient. Blood Venous blood specimen / Unknown 11/11/2024 12:42 AM EDT us Nathaly Nowak MD LAB BLOOD ORDERABLES Final Resu lt [facility] [address] [place] [address] * (ABNORMAL) CBC W/O Differential (11/11/2024 12:56 AM EDT) WBC Count 11.83(H) 3.70 - 10.30 10*3/uL LAB HEMATOLOGY METHOD 11/11/2024 12:56 AM EDT [facility] RBC Count 2.97(L) 4.60 - 6.10 10*6/uL LAB HEMATOLOGY METHOD 11/11/2024 12:56 AM EDT [facility] HGB 8.9(L) 13.7 - 17.5 g/dL LAB HEMATOLOGY METHOD 11/11/2024 12:56 AM EDT [facility] HCT 27.2(L) 40.0 - 51.0 % LAB HEMATOLOGY METHOD 11/11/2024 12:56 AM EDT [facility] Platelet Count 444(H) 155 - 369 10*3/uL LAB HEMATOLOGY METHOD 11/11/2024 12:56 AM EDT [facility] MCV 92 79 - 98 fL LAB HEMATOLOGY METHOD 11/11/2024 12:56 AM EDT [facility] MCH 30.0 26.0 - 32.0 pg LAB HEMATOLOGY METHOD 11/11/2024 12:56 AM EDT [facility] MCHC 32.7 30.7 - 35.5 g/dL LAB HEMATOLOGY METHOD 11/11/2024 12:56 AM EDT [facility] RDW 13.3 11.5 - 14.5 % LAB HEMATOLOGY METHOD 11/11/2024 12:56 AM EDT [facility] MPV 9.0 8.8 - 12.5 fL LAB HEMATOLOGY METHOD 11/11/2024 12:56 AM EDT [facility] nRBC 0.0 <=0.0 per 100 WBCs LAB HEMATOLOGY METHOD 11/11/2024 12:56 AM EDT [facility] Blood Venous blood specimen / Unknown 11/11/2024 12:42 AM EDT us Nathaly Nowak MD LAB BLOOD ORDERABLES Final Resu lt [facility] [address] [place] [address] * (ABNORMAL) POCT glucose meter (11/10/2024 8:25 [...] Comment 11/10/2024 8:28 PM EDT [facility] Gas Meter Installer Helper ID Nelda Gerber 11/11/19 8:28 PM EDT [facility] Device ID [id number] 11/10/2024 8:28 PM EDT [facility] Specimen Type POC Capillary 11/10/2024 8:28 PM EDT [facility] Blood Capillary blood specimen / Unknown 11/10/2024 8:25 PM EDT 11/10/2024 8:28 PM EDT us Nathaly Nowak MD LAB POINT OF CARE TE ST DOCKED DEVICE UNSOLICITED RESULTS Final Result [facility] [address] [place] [address] * (ABNORMAL) POCT glucose meter (11/10/2024 4:45 [...] Comment 11/10/2024 4:47 PM EDT [facility] Gas Meter Installer Helper ID Esperanza Parks 11/10/2024 4:47 PM EDT [facility] Device ID [id number] 11/10/2024 4:47 PM EDT [facility] Specimen Type POC Capillary 11/10/2024 4:47 PM EDT [facility] Blood Capillary blood specimen / Unknown 11/10/2024 4:45 PM EDT 11/10/2024 4:47 PM EDT Nathaly Nowak MD LAB POINT OF CARE TE ST DOCKED DEVICE UNSOLICITED RESULTS Final Result Performing Organization Address City/State/[facility] Co de Phone Number [facility] [address] [place] [address] * (ABNORMAL) POCT glucose meter (11/10/2024 12:13 PM EDT) [facility] POCT Glucose 131(H) 74 - [...] Comment 11/10/2024 12:14 PM EDT [facility] Gas Meter Installer Helper ID Esperanza Parks 11/10/2024 12:14 PM EDT [facility] Device ID [id number] 11/10/2024 12:14 PM EDT [facility] Specimen Type POC Capillary 11/10/2024 12:14 PM EDT [facility] Blood Capillary blood specimen / Unknown 11/10/2024 12:13 PM EDT 11/10/2024 12:14 PM EDT us Nathaly Nowak MD LAB POINT OF CARE TE ST DOCKED DEVICE UNSOLICITED RESULTS Final Result Performing Organization Address [facility] Co de Phone Number [facility] [address] [place] [address] * Vancomycin, Peak, Plasma Please draw ~2 hours after 0800 dose of vancomycin finishes infusing. Consider obtaining level via peripheral stick. If peripheral stick is not feasible, please ensure that line is flushed well prior to drawing level. Than... (11/10/2024 10:56 AM EDT) [facility] Vancomycin, Peak, Plasma 23.8 20.0 - 40.0 ug/mL 11/10/2024 11:25 AM EDT [facility] Blood Venous blood specimen / Unknown Venipuncture / Unknown 11/10/2024 10:56 AM EDT 11/10/2024 11:00 AM EDT Narrative [facility] - 11/10/2024 11:25 AM EDT Therapeutic Peak level: 20-40ug/mL Supra-therapeutic Peak level: >40 ug/mL us Abigail Seay MD LAB BLOOD ORDERABLES Final Res ult Performing Organization Address [facility] Co de Phone Number [facility] [address] [place] [address] * (ABNORMAL) POCT glucose meter (11/10/2024 8:03 AM EDT) [facility] POCT Glucose 174(H) 74 - 99 mg/dL 11/10/2024 8:04 AM EDT [facility] Comment:Accuracy of a glucos e result [...] testing. Comment 11/10/2024 8:04 AM EDT [facility] Gas Meter Installer Helper ID Esperanza Parks 11/10/2024 8:04 AM EDT [facility] Device ID [id number] 11/10/2024 8:04 AM EDT [facility] Specimen Type POC Capillary 11/10/2024 8:04 AM EDT [facility] Blood Capillary blood specimen / Unknown 11/10/2024 8:03 AM EDT 11/10/2024 8:04 AM EDT Nathaly Nowak MD LAB POINT OF CARE TE ST DOCKED DEVICE UNSOLICITED RESULTS Final Result Performing Organization Address [facility] Co de Phone Number [facility] [address] [place] [address] * Vancomycin, Trough, Plasma Please draw ~30 minutes prior to dose due at 0800 on 11/10. Please do NOThold dose awaiting level to return. Consider obtaining level via peripheral stick. If peripheral stick is not feasible, please ensure that line is... (11/10/2024 7:27 AM EDT) Vancomycin, Trough, Plasma 16.2 10.0 - 20.0 ug/mL 11/10/2024 8:24 AM EDT [facility] Blood Venous blood specimen / Unknown Venipuncture / Unknown 11/10/2024 7:27 AM EDT 11/10/2024 7:51 AM EDT Narrative [facility] - 11/10/2024 8:24 AM EDT Therapeutic Trough level: 10-20ug/mL Supra-therapeutic Trough level: >20 ug/mL us Abigail Seay MD LAB BLOOD ORDERABLES Final Res ult Performing Organization Address City/[facility]/ZIP Co de Phone Number [facility] [address] [place] [address] * (ABNORMAL) CBC and Differential (11/10/2024 12:31 AM EDT) WBC Count 10.80(H) 3.70 - 10.30 10*3/uL LAB HEMATOLOGY METHOD 11/10/2024 12:53 AM EDT [facility] RBC Count 3.06(L) 4.60 - 6.10 10*6/uL LAB HEMATOLOGY METHOD 11/10/2024 12:53 AM EDT [facility] HGB 9.1(L) 13.7 - 17.5 g/dL LAB HEMATOLOGY METHOD 11/10/2024 12:53 AM EDT [facility] HCT 28.0(L) 40.0 - 51.0 % LAB HEMATOLOGY METHOD 11/10/2024 12:53 AM EDT [facility] Platelet Count 501(H) 155 - 369 10*3/uL LAB HEMATOLOGY METHOD 11/10/2024 12:53 AM EDT [facility] MCV 92 79 - 98 fL LAB HEMATOLOGY METHOD 11/10/2024 12:53 AM EDT [facility] MCH 29.7 26.0 - 32.0 pg LAB HEMATOLOGY METHOD 11/10/2024 12:53 AM EDT [facility] MCHC 32.5 30.7 - 35.5 g/dL LAB HEMATOLOGY METHOD 11/10/2024 12:53 AM EDT [facility] RDW 13.2 11.5 - 14.5 % LAB HEMATOLOGY METHOD 11/10/2024 12:53 AM EDT [facility] MPV 8.8 8.8 - 12.5 fL LAB HEMATOLOGY METHOD 11/10/2024 12:53 AM EDT [facility] nRBC 0.0 <=0.0 per 100 WBCs LAB HEMATOLOGY METHOD 11/10/2024 12:53 AM EDT [facility] Differential Type Automated LAB HEMATOLOGY METHOD 11/10/2024 12:53 AM EDT [facility] Neutrophils % 77 % LAB HEMATOLOGY METHOD 11/10/2024 12:53 AM EDT [facility] Lymphocytes % 13 % LAB HEMATOLOGY METHOD 11/10/2024 12:53 AM EDT [facility] Monocytes % 8 % LAB HEMATOLOGY METHOD 11/10/2024 12:53 AM EDT [facility] Eosinophils % 1 % LAB HEMATOLOGY METHOD 11/10/2024 12:53 AM EDT [facility] Basophils % 0 % LAB HEMATOLOGY METHOD 11/10/2024 12:53 AM EDT [facility] Immature Granulocytes % 1 % LAB HEMATOLOGY METHOD 11/10/2024 12:53 AM EDT [facility] Neutrophils Absolute 8.32(H) 1.60 - 6.10 10*3/uL LAB HEMATOLOGY METHOD 11/10/2024 12:53 AM EDT [facility] Lymphocytes Absolute 1.40 1.20 - 3.90 10*3/uL LAB HEMATOLOGY METHOD 11/10/2024 12:53 AM EDT [facility] Monocytes Absolute 0.89 0.30 - 0.90 10*3/uL LAB HEMATOLOGY METHOD 11/10/2024 12:53 AM EDT [facility] Eosinophils Absolute 0.09 0.00 - 0.50 10*3/uL LAB HEMATOLOGY METHOD 11/10/2024 12:53 AM EDT [facility] Basophils Absolute 0.04 0.00 - 0.10 10*3/uL LAB HEMATOLOGY METHOD 11/10/2024 12:53 AM EDT [facility] Immature Granulocytes Absolute 0.06 0.00 - 0.06 10*3/uL LAB HEMATOLOGY METHOD 11/10/2024 12:53 AM EDT [facility] Blood Venous blood specimen / Unknown Venipuncture / Unknown 11/10/2024 12:31 AM EDT 11/10/2024 12:37 AM EDT Narrative [facility] - 11/10/2024 12:53 AM EDT Therapeutic decision making should be based on absolute values, rather than percentages. us Nathaly Nowak MD LAB BLOOD ORDERABLES Final Resu lt [facility] [address] [place] [address] * (ABNORMAL) Comprehensive Metabolic Panel, Plasma (11/10/2024 12:31 AM EDT) Glucose, Plasma 185(H) 74 - 99 mg/dL 11/10/2024 1:05 AM EDT [facility] BUN, Plasma 9 8 - 23 mg/dL 11/10/2024 1:05 AM EDT [facility] Creatinine, Plasma 0.72 0.70 - 1.20 mg/dL 11/10/2024 1:05 AM EDT [facility] BUN/Creatinine Ratio 13 11/10/2024 1:05 AM EDT [facility] Sodium, Plasma 135(L) 136 - 145 mmol/L 11/10/2024 1:05 AM EDT [facility] Potassium, Plasma 4.0 3.6 - 4.9 mmol/L 11/10/2024 1:05 AM EDT [facility] Chloride, Plasma 106 97 - 107 mmol/L 11/10/2024 1:05 AM EDT [facility] CO2, Plasma 19(L) 22 - 29 mmol/L 11/10/2024 1:05 AM EDT [facility] Anion Gap 10 6 - 16 mmol/L 11/10/2024 1:05 AM EDT [facility] Total Calcium, Plasma 7.8(L) 8.9 - 10.2 mg/dL 11/10/2024 1:05 AM EDT [facility] Total Protein 5.6(L) 6.3 - 7.9 g/dL 11/10/2024 1:05 AM EDT [facility] Albumin, Plasma 3.1(L) 3.5 - 5.2 g/dL 11/10/2024 1:05 AM EDT [facility] AST, Plasma 33 10 - 50 U/L 11/10/2024 1:05 AM EDT [facility] ALT, Plasma 25 10 - 50 U/L 11/10/2024 1:05 AM EDT [facility] Alkaline Phosphatase, Plasma 108 40 - 115 U/L 11/10/2024 1:05 AM EDT [facility] Total Bilirubin, Plasma <0.2(L) 0.2 - 1.1 mg/dL 11/10/2024 1:05 AM EDT [facility] eGFRcr 101.4 mL/min/1.7 3m*2 11/10/2024 1:05 AM EDT [facility] Comment:Reported eGFRcr in m L/min/1.73m2 is based the CKD-EPI 2020 equation that does not use a race coefficient. Blood Venous blood specimen / Unknown Venipuncture / Unknown 11/10/2024 12:31 AM EDT 11/10/2024 12:37 AM EDT us Nathaly Nowak MD LAB BLOOD ORDERABLES Final Resu lt [facility] [address] [place] [address] * (ABNORMAL) POCT glucose meter (11/09/2024 8:04 PM EDT) [facility] POCT Glucose 114(H) 74 - [...] Comment 11/09/2024 8:06 PM EDT [facility] Gas Meter Installer Helper ID Maximiliano Hansen II 11/09/2024 8:06 PM EDT [facility] Device ID [id number] 11/09/2024 8:06 PM EDT [facility] Specimen Type POC Capillary 11/09/2024 8:06 PM EDT [facility] Blood Capillary blood specimen / Unknown 11/09/2024 8:04 PM EDT 11/09/2024 8:06 PM EDT Nathaly Nowak MD LAB POINT OF CARE TE ST DOCKED DEVICE UNSOLICITED RESULTS Final Result [facility] [address] [place] [address] * (ABNORMAL) POCT glucose meter (11/09/2024 4:36 PM EDT) [facility] POCT Glucose 166(H) 74 - [...] 11/09/2024 4:38 PM EDT [facility] Gas Meter Installer Helper ID Kristian Sosa 11/09/2024 4:38 PM EDT [facility] Device ID [id number] 11/09/2024 4:38 PM EDT [facility] Specimen Type POC Capillary 11/09/2024 4:38 PM EDT [facility] Blood Capillary blood specimen / Unknown 11/09/2024 4:36 PM EDT 11/09/2024 4:38 PM EDT Nathaly Nowak MD LAB POINT OF CARE TE ST DOCKED DEVICE UNSOLICITED RESULTS Final Result Performing Organization Address City/State/[facility] Co de Phone Number [facility] [address] [place] [address] * PICC SINGLE LUMEN ([employer] LINK) (11/09/2024 1:11 PM EDT) Narrative Estefani Barraza RN - 11/09/2024 1:11 PM EDT Estefani Barraza RN 11/09/2024 1:12 PM Insert PICC line Date/Time: 11/09/2024 1:11 PM Performed by: Estefani Barraza RN Authorized by: Nathaly Nowak MD Jim Thorpe Protocol: Verbal consent obtained?: Yes Written consent [...] selection rationale: Left pacemaker Catheter Lot #: [id number] Catheter grinder: [employer] Catheter placed: Single lumen Catheter size: 4 [...] for testing. Comment 11/09/2024 11:51 AM EDT [facility] Gas Meter Installer Helper ID Kristian Sosa 11/09/2024 11:51 AM EDT [facility] Device ID [id number] 11/09/2024 11:51 AM EDT [facility] Specimen Type POC Capillary 11/09/2024 11:51 AM EDT [facility] Blood Capillary blood specimen / Unknown 11/09/2024 11:50 AM EDT 11/09/2024 11:51 AM EDT Nathaly Nowak MD LAB POINT OF CARE TE ST DOCKED DEVICE UNSOLICITED RESULTS Final Result [facility] [address] [place] [address] * (ABNORMAL) POCT glucose meter (11/09/2024 8:14 [...] Comment 11/09/2024 8:15 AM EDT [facility] Gas Meter Installer Helper ID Kristian Sosa 11/09/2024 8:15 AM EDT [facility] Device ID [id number] 11/09/2024 8:15 AM EDT [facility] Specimen Type POC Capillary 11/09/2024 8:15 AM EDT [facility] Blood Capillary blood specimen / Unknown 11/09/2024 8:14 AM EDT 11/09/2024 8:15 AM EDT us Nathaly Nowak MD LAB POINT OF CARE TE ST DOCKED DEVICE UNSOLICITED RESULTS Final Result [facility] [address] [place] [address] * (ABNORMAL) CBC and Differential (11/09/2024 4:15 AM EDT) [facility] WBC Count 10.27 3.70 - 10.30 10*3/uL LAB HEMATOLOGY METHOD 11/09/2024 4:26 AM EDT [facility] RBC Count 3.14(L) 4.60 - 6.10 10*6/uL LAB HEMATOLOGY METHOD 11/09/2024 4:26 AM EDT [facility] HGB 9.2(L) 13.7 - 17.5 g/dL LAB HEMATOLOGY METHOD 11/09/2024 4:26 AM EDT [facility] HCT 28.3(L) 40.0 - 51.0 % LAB HEMATOLOGY METHOD 11/09/2024 4:26 AM EDT [facility] Platelet Count 468(H) 155 - 369 10*3/uL LAB HEMATOLOGY METHOD 11/09/2024 4:26 AM EDT [facility] MCV 90 79 - 98 fL LAB HEMATOLOGY METHOD 11/09/2024 4:26 AM EDT [facility] MCH 29.3 26.0 - 32.0 pg LAB HEMATOLOGY METHOD 11/09/2024 4:26 AM EDT [facility] MCHC 32.5 30.7 - 35.5 g/dL LAB HEMATOLOGY METHOD 11/09/2024 4:26 AM EDT [facility] RDW 13.1 11.5 - 14.5 % LAB HEMATOLOGY METHOD 11/09/2024 4:26 AM EDT [facility] MPV 8.7(L) 8.8 - 12.5 fL LAB HEMATOLOGY METHOD 11/09/2024 4:26 AM EDT [facility] nRBC 0.0 <=0.0 per 100 WBCs LAB HEMATOLOGY METHOD 11/09/2024 4:26 AM EDT [facility] Differential Type Automated LAB HEMATOLOGY METHOD 11/09/2024 4:26 AM EDT [facility] Neutrophils % 77 % LAB HEMATOLOGY METHOD 11/09/2024 4:26 AM EDT [facility] Lymphocytes % 13 % LAB HEMATOLOGY METHOD 11/09/2024 4:26 AM EDT [facility] Monocytes % 8 % LAB HEMATOLOGY METHOD 11/09/2024 4:26 AM EDT [facility] Eosinophils % 1 % LAB HEMATOLOGY METHOD 11/09/2024 4:26 AM EDT [facility] Basophils % 0 % LAB HEMATOLOGY METHOD 11/09/2024 4:26 AM EDT [facility] Immature Granulocytes % 1 % LAB HEMATOLOGY METHOD 11/09/2024 4:26 AM EDT [facility] Neutrophils Absolute 7.97(H) 1.60 - 6.10 10*3/uL LAB HEMATOLOGY METHOD 11/09/2024 4:26 AM EDT [facility] Lymphocytes Absolute 1.32 1.20 - 3.90 10*3/uL LAB HEMATOLOGY METHOD 11/09/2024 4:26 AM EDT [facility] Monocytes Absolute 0.83 0.30 - 0.90 10*3/uL LAB HEMATOLOGY METHOD 11/09/2024 4:26 AM EDT [facility] Eosinophils Absolute 0.07 0.00 - 0.50 10*3/uL LAB HEMATOLOGY METHOD 11/09/2024 4:26 AM EDT [facility] Basophils Absolute 0.03 0.00 - 0.10 10*3/uL LAB HEMATOLOGY METHOD 11/09/2024 4:26 AM EDT [facility] Immature Granulocytes Absolute 0.05 0.00 - 0.06 10*3/uL LAB HEMATOLOGY METHOD 11/09/2024 4:26 AM EDT [facility] Blood Venous blood specimen / Unknown Venipuncture / Unknown 11/09/2024 4:15 AM EDT 11/09/2024 4:18 AM EDT Narrative [facility] - 11/09/2024 4:26 AM EDT Therapeutic decision making should be based on absolute values, rather than percentages. us Nathaly Nowak MD LAB BLOOD ORDERABLES Final Resu lt [facility] [address] [place] [address] * (ABNORMAL) Comprehensive Metabolic Panel, Plasma (11/09/2024 4:15 AM EDT) Glucose, Plasma 171(H) 74 - 99 mg/dL 11/09/2024 4:47 AM EDT [facility] BUN, Plasma 9 8 - 23 mg/dL 11/09/2024 4:47 AM EDT [facility] Creatinine, Plasma 0.67(L) 0.70 - 1.20 mg/dL 11/09/2024 4:47 AM EDT [facility] BUN/Creatinine Ratio 13 11/09/2024 4:47 AM EDT [facility] Sodium, Plasma 134(L) 136 - 145 mmol/L 11/09/2024 4:47 AM EDT [facility] Potassium, Plasma 4.1 3.6 - 4.9 mmol/L 11/09/2024 4:47 AM EDT [facility] Chloride, Plasma 104 97 - 107 mmol/L 11/09/2024 4:47 AM EDT [facility] CO2, Plasma 21(L) 22 - 29 mmol/L 11/09/2024 4:47 AM EDT [facility] Anion Gap 9 6 - 16 mmol/L 11/09/2024 4:47 AM EDT [facility] Total Calcium, Plasma 8.4(L) 8.9 - 10.2 mg/dL 11/09/2024 4:47 AM EDT [facility] Total Protein 5.8(L) 6.3 - 7.9 g/dL 11/09/2024 4:47 AM EDT [facility] Albumin, Plasma 3.2(L) 3.5 - 5.2 g/dL 11/09/2024 4:47 AM EDT [facility] AST, Plasma 18 10 - 50 U/L 11/09/2024 4:47 AM EDT [facility] ALT, Plasma 17 10 - 50 U/L 11/09/2024 4:47 AM EDT [facility] Alkaline Phosphatase, Plasma 110 40 - 115 U/L 11/09/2024 4:47 AM EDT [facility] Total Bilirubin, Plasma <0.2(L) 0.2 - 1.1 mg/dL 11/09/2024 4:47 AM EDT [facility] eGFRcr 103.6 mL/min/1.7 3m*2 11/09/2024 4:47 AM EDT [facility] Comment:Reported eGFRcr in m L/min/1.73m2 is based the CKD-EPI 2020 equation that does not use a race coefficient. Blood Venous blood specimen / Unknown Venipuncture / Unknown 11/09/2024 4:15 AM EDT 11/09/2024 4:18 AM EDT us Nathaly Nowak MD LAB BLOOD ORDERABLES Final Resu lt [facility] [address] [place] [address] * (ABNORMAL) POCT glucose meter (11/09/2024 3:30 AM EDT) POCT Glucose 160(H) 74 - 99 mg/dL 11/09/2024 3:31 AM EDT [facility] Comment:Accuracy of a glucos e result [...] testing. Comment 11/09/2024 3:31 AM EDT [facility] Gas Meter Installer Helper ID Maximiliano Hansen II 11/09/2024 3:31 AM EDT [facility] Device ID [id number] 11/09/2024 3:31 AM EDT [facility] Specimen Type POC Capillary 11/09/2024 3:31 AM EDT [facility] Blood Capillary blood specimen / Unknown 11/09/2024 3:30 AM EDT 11/09/2024 3:31 AM EDT Nathaly Nowak MD LAB POINT OF CARE TE ST DOCKED DEVICE UNSOLICITED RESULTS Final Result Performing Organization Address City/[facility] Co de Phone Number [facility] [address] [place] [address] * (ABNORMAL) POCT glucose meter (11/08/2024 7:21 PM EDT) [facility] POCT Glucose 292(H) 74 - [...] Comment 11/08/2024 7:22 PM EDT [facility] Gas Meter Installer Helper ID Maximiliano Hansen II 11/08/2024 7:22 PM EDT [facility] Device ID [id number] 11/08/2024 7:22 PM EDT [facility] Specimen Type POC Capillary 11/08/2024 7:22 PM EDT [facility] Blood Capillary blood specimen / Unknown 11/08/2024 7:21 PM EDT 11/08/2024 7:22 PM EDT Nathaly Nowak MD LAB POINT OF CARE TE ST DOCKED DEVICE UNSOLICITED RESULTS Final Result Performing Organization Address City/[facility]/ZIP Co de Phone Number [facility] [address] [place] [address] * (ABNORMAL) POCT glucose meter (11/08/2024 5:12 PM EDT) [facility] POCT Glucose 178(H) 74 - [...] Comment 11/08/2024 5:14 PM EDT [facility] Gas Meter Installer Helper ID Estefani Sheth 11/08/2024 5:14 PM EDT [facility] Device ID [id number] 11/08/2024 5:14 PM EDT [facility] Specimen Type POC Capillary 11/08/2024 5:14 PM EDT [facility] Blood Capillary blood specimen / Unknown 11/08/2024 5:12 PM EDT 11/08/2024 5:14 PM EDT Nathaly Nowak MD LAB POINT OF CARE TE ST DOCKED DEVICE UNSOLICITED RESULTS Final Result Performing Organization Address City/State/[facility] Co de Phone Number [facility] [address] [place] [address] * (ABNORMAL) POCT glucose meter (11/08/2024 12:03 PM EDT) [facility] POCT Glucose 191(H) 74 - [...] Comment 11/08/2024 12:05 PM EDT [facility] Gas Meter Installer Helper ID Estefani Sheth 11/08/2024 12:05 PM EDT [facility] Device ID [id number] 11/08/2024 12:05 PM EDT [facility] Specimen Type POC Capillary 11/08/2024 12:05 PM EDT [facility] Blood Capillary blood specimen / Unknown 11/08/2024 12:03 PM EDT 11/08/2024 12:05 PM EDT Nathaly Nowak MD LAB POINT OF CARE TE ST DOCKED DEVICE UNSOLICITED RESULTS Final Result Performing Organization Address [facility] Co de Phone Number [facility] [address] [place] [address] * Vancomycin, Peak, Plasma Please draw ~2 hours after 11/08 0600 dose of vancomycin finishes infusing.Consider obtaining level via peripheral stick. If peripheral stick is not feasible, please ensure that line is flushed well prior to drawing level.... (11/08/2024 9:24 AM EDT) Pathologist [facility] Vancomycin, Peak, Plasma 29.1 20.0 - 40.0 ug/mL 11/08/2024 10:31 AM EDT [facility] Blood Venous blood specimen / Unknown Venipuncture / Unknown 11/08/2024 9:24 AM EDT 11/08/2024 9:47 AM EDT Narrative [facility] - 11/08/2024 10:31 AM EDT Therapeutic Peak level: 20-40ug/mL Supra-therapeutic Peak level: >40 ug/mL Nathaly Nowak MD LAB BLOOD ORDERABLES Final Resu lt Performing Organization Address [facility] Phone Number [facility] [address] [place] [address] * (ABNORMAL) POCT glucose meter (11/08/2024 8:00 AM EDT) Pathologist [facility] POCT Glucose 150(H) 74 - 99 mg/dL 11/08/2024 8:01 AM EDT [facility] Comment:Accuracy of a glucos e result [...] 11/08/2024 8:01 AM EDT [facility] Gas Meter Installer Helper ID Estefani Sheth 11/08/2024 8:01 AM EDT [facility] Device ID [id number] 11/08/2024 8:01 AM EDT [facility] Specimen Type POC Capillary 11/08/2024 8:01 AM EDT [facility] Blood Capillary blood specimen / Unknown 11/08/2024 8:00 AM EDT 11/08/2024 8:01 AM EDT us Nathaly Nowak MD LAB POINT OF CARE TE ST DOCKED DEVICE UNSOLICITED RESULTS Final Result [facility] [address] [place] [id number] * (ABNORMAL) CBC and Differential (11/08/2024 4:39 AM EDT) WBC Count 9.18 3.70 - 10.30 10*3/uL LAB HEMATOLOGY METHOD 11/08/2024 4:58 AM EDT [facility] RBC Count 3.11(L) 4.60 - 6.10 10*6/uL LAB HEMATOLOGY METHOD 11/08/2024 4:58 AM EDT [facility] HGB 9.2(L) 13.7 - 17.5 g/dL LAB HEMATOLOGY METHOD 11/08/2024 4:58 AM EDT [facility] HCT 28.9(L) 40.0 - 51.0 % LAB HEMATOLOGY METHOD 11/08/2024 4:58 AM EDT [facility] Platelet Count 485(H) 155 - 369 10*3/uL LAB HEMATOLOGY METHOD 11/08/2024 4:58 AM EDT [facility] MCV 93 79 - 98 fL LAB HEMATOLOGY METHOD 11/08/2024 4:58 AM EDT [facility] MCH 29.6 26.0 - 32.0 pg LAB HEMATOLOGY METHOD 11/08/2024 4:58 AM EDT [facility] MCHC 31.8 30.7 - 35.5 g/dL LAB HEMATOLOGY METHOD 11/08/2024 4:58 AM EDT [facility] RDW 13.0 11.5 - 14.5 % LAB HEMATOLOGY METHOD 11/08/2024 4:58 AM EDT [facility] MPV 8.8 8.8 - 12.5 fL LAB HEMATOLOGY METHOD 11/08/2024 4:58 AM EDT [facility] nRBC 0.0 <=0.0 per 100 WBCs LAB HEMATOLOGY METHOD 11/08/2024 4:58 AM EDT [facility] Differential Type Automated LAB HEMATOLOGY METHOD 11/08/2024 4:58 AM EDT [facility] Neutrophils % 69 % LAB HEMATOLOGY METHOD 11/08/2024 4:58 AM EDT [facility] Lymphocytes % 17 % LAB HEMATOLOGY METHOD 11/08/2024 4:58 AM EDT [facility] Monocytes % 10 % LAB HEMATOLOGY METHOD 11/08/2024 4:58 AM EDT [facility] Eosinophils % 2 % LAB HEMATOLOGY METHOD 11/08/2024 4:58 AM EDT [facility] Basophils % 1 % LAB HEMATOLOGY METHOD 11/08/2024 4:58 AM EDT [facility] Immature Granulocytes % 1 % LAB HEMATOLOGY METHOD 11/08/2024 4:58 AM EDT [facility] Neutrophils Absolute 6.40(H) 1.60 - 6.10 10*3/uL LAB HEMATOLOGY METHOD 11/08/2024 4:58 AM EDT [facility] Lymphocytes Absolute 1.59 1.20 - 3.90 10*3/uL LAB HEMATOLOGY METHOD 11/08/2024 4:58 AM EDT [facility] Monocytes Absolute 0.87 0.30 - 0.90 10*3/uL LAB HEMATOLOGY METHOD 11/08/2024 4:58 AM EDT [facility] Eosinophils Absolute 0.22 0.00 - 0.50 10*3/uL LAB HEMATOLOGY METHOD 11/08/2024 4:58 AM EDT [facility] Basophils Absolute 0.05 0.00 - 0.10 10*3/uL LAB HEMATOLOGY METHOD 11/08/2024 4:58 AM EDT [facility] Immature Granulocytes Absolute 0.05 0.00 - 0.06 10*3/uL LAB HEMATOLOGY METHOD 11/08/2024 4:58 AM EDT [facility] Blood Venous blood specimen / Unknown Venipuncture / Unknown 11/08/2024 4:39 AM EDT 11/08/2024 4:49 AM EDT Narrative [facility] - 11/08/2024 4:58 AM EDT Therapeutic decision making should be based on absolute values, rather than percentages. us Nathaly Nowak MD LAB BLOOD ORDERABLES Final Resu lt [facility] [address] [place] [address] * (ABNORMAL) Comprehensive Metabolic Panel, Plasma (11/08/2024 4:39 AM EDT) Glucose, Plasma 255(H) 74 - 99 mg/dL 11/08/2024 5:20 AM EDT [facility] BUN, Plasma 10 8 - 23 mg/dL 11/08/2024 5:20 AM EDT [facility] Creatinine, Plasma 0.75 0.70 - 1.20 mg/dL 11/08/2024 5:20 AM EDT [facility] BUN/Creatinine Ratio 13 11/08/2024 5:20 AM EDT [facility] Sodium, Plasma 133(L) 136 - 145 mmol/L 11/08/2024 5:20 AM EDT [facility] Potassium, Plasma 5.2(H) 3.6 - 4.9 mmol/L 11/08/2024 5:20 AM EDT [facility] Chloride, Plasma 105 97 - 107 mmol/L 11/08/2024 5:20 AM EDT [facility] CO2, Plasma 20(L) 22 - 29 mmol/L 11/08/2024 5:20 AM EDT [facility] Anion Gap 8 6 - 16 mmol/L 11/08/2024 5:20 AM EDT [facility] Total Calcium, Plasma 7.7(L) 8.9 - 10.2 mg/dL 11/08/2024 5:20 AM EDT [facility] Total Protein 5.6(L) 6.3 - 7.9 g/dL 11/08/2024 5:20 AM EDT [facility] Albumin, Plasma 2.8(L) 3.5 - 5.2 g/dL 11/08/2024 5:20 AM EDT [facility] AST, Plasma 20 10 - 50 U/L 11/08/2024 5:20 AM EDT [facility] Comment:Hemolyzed, result ma y be falsely increased. ALT, Plasma 14 10 - 50 U/L 11/08/2024 5:20 AM EDT [facility] Alkaline Phosphatase, Plasma 119(H) 40 - 115 U/L 11/08/2024 5:20 AM EDT [facility] Total Bilirubin, Plasma <0.2(L) 0.2 - 1.1 mg/dL 11/08/2024 5:20 AM EDT [facility] eGFRcr 100.1 mL/min/1.7 3m*2 11/08/2024 5:20 AM EDT [facility] Comment:Reported eGFRcr in m L/min/1.73m2 is based the CKD-EPI 2020 equation that does not use a race coefficient. Blood Venous blood specimen / Unknown Venipuncture / Unknown 11/08/2024 4:39 AM EDT 11/08/2024 4:43 AM EDT us Nathaly Nowak MD LAB BLOOD ORDERABLES Final Resu lt [facility] [address] [place] [address] * Vancomycin, Trough, Plasma Please draw ~30 minutes prior to dose due at 0600 on 11/08. Please do NOThold dose awaiting level to return. Consider obtaining level via peripheral stick. If peripheral stick is not feasible, please ensure that line is... (11/08/2024 4:39 AM EDT) Vancomycin, Trough, Plasma 18.7 10.0 - 20.0 ug/mL 11/08/2024 5:22 AM EDT [facility] Blood Venous blood specimen / Unknown Venipuncture / Unknown 11/08/2024 4:39 AM EDT 11/08/2024 4:43 AM EDT Narrative [facility] - 11/08/2024 5:22 AM EDT Therapeutic Trough level: 10-20ug/mL Supra-therapeutic Trough level: >20 ug/mL us Nathaly Nowak MD LAB BLOOD ORDERABLES Final Resu lt Performing Organization Address City/[facility]/ZIP Co de Phone Number [facility] [address] [place] [address] * (ABNORMAL) POCT glucose meter (11/07/2024 7:26 [...] for testing. Comment 11/07/2024 7:28 PM EDT [facility] Gas Meter Installer Helper ID Maximiliano Hansen II 11/07/2024 7:28 PM EDT [facility] [employer] [facility] Device ID [id number] 11/07/2024 7:28 PM EDT [facility] Specimen Type POC Capillary 11/07/2024 7:28 PM EDT [facility] Blood Capillary blood specimen / Unknown 11/07/2024 7:26 PM EDT 11/07/2024 7:28 PM EDT Nathaly Nowak MD LAB POINT OF CARE TE ST DOCKED DEVICE UNSOLICITED RESULTS Final Result Performing Organization Address City/[facility] Co de Phone Number [facility] [address] [place] [address] * (ABNORMAL) POCT glucose meter (11/07/2024 5:51 [...] Comment 11/07/2024 5:52 PM EDT [facility] Gas Meter Installer Helper ID Brigitte Castellon 11/07/2024 5:52 PM EDT [facility] Device ID [id number] 11/07/2024 5:52 PM EDT [facility] Specimen Type POC Capillary 11/07/2024 5:52 PM EDT [facility] Blood Capillary blood specimen / Unknown 11/07/2024 5:51 PM EDT 11/07/2024 5:52 PM EDT us Nathaly Nowak MD LAB POINT OF CARE TE ST DOCKED DEVICE UNSOLICITED RESULTS Final Result Performing Organization Address City/[facility] Co de Phone Number [facility] [address] [place] [address] * (ABNORMAL) POCT glucose meter (11/07/2024 4:47 [...] Comment 11/07/2024 4:48 PM EDT [facility] Gas Meter Installer Helper ID Estefani Sheth 11/07/2024 4:48 PM EDT [facility] Device ID [id number] 11/07/2024 4:48 PM EDT [facility] Specimen Type POC Capillary 11/07/2024 4:48 PM EDT [facility] Blood Capillary blood specimen / Unknown 11/07/2024 4:47 PM EDT 11/07/2024 4:48 PM EDT Nathaly Nowak MD LAB POINT OF CARE TE ST DOCKED DEVICE UNSOLICITED RESULTS Final Result Performing Organization Address City/[facility]/ZIP Co de Phone Number [facility] [address] [place] [address] * (ABNORMAL) POCT glucose meter (11/07/2024 12:22 [...] Comment 11/07/2024 12:24 PM EDT [facility] Gas Meter Installer Helper ID Estefani Sheth 11/07/2024 12:24 PM EDT [facility] Device ID [id number] 11/07/2024 12:24 PM EDT [facility] Specimen Type POC Capillary 11/07/2024 12:24 PM EDT [facility] Blood Capillary blood specimen / Unknown 11/07/2024 12:22 PM EDT 11/07/2024 12:24 PM EDT us Nathaly Nowak MD LAB POINT OF CARE TE ST DOCKED DEVICE UNSOLICITED RESULTS Final Result Performing Organization Address City/State/[facility] Co de Phone Number [facility] [address] [place] [address] * (ABNORMAL) CBC and Differential (11/07/2024 11:37 AM EDT) [facility] WBC Count 9.96 3.70 - 10.30 10*3/uL LAB HEMATOLOGY METHOD 11/07/2024 12:33 PM EDT [facility] RBC Count 2.81(L) 4.60 - 6.10 10*6/uL LAB HEMATOLOGY METHOD 11/07/2024 12:33 PM EDT [facility] HGB 8.5(L) 13.7 - 17.5 g/dL LAB HEMATOLOGY METHOD 11/07/2024 12:33 PM EDT [facility] HCT 26.0(L) 40.0 - 51.0 % LAB HEMATOLOGY METHOD 11/07/2024 12:33 PM EDT [facility] Platelet Count 524(H) 155 - 369 10*3/uL LAB HEMATOLOGY METHOD 11/07/2024 12:33 PM EDT [facility] MCV 93 79 - 98 fL LAB HEMATOLOGY METHOD 11/07/2024 12:33 PM EDT [facility] MCH 30.2 26.0 - 32.0 pg LAB HEMATOLOGY METHOD 11/07/2024 12:33 PM EDT [facility] MCHC 32.7 30.7 - 35.5 g/dL LAB HEMATOLOGY METHOD 11/07/2024 12:33 PM EDT [facility] RDW 13.1 11.5 - 14.5 % LAB HEMATOLOGY METHOD 11/07/2024 12:33 PM EDT [facility] MPV 9.0 8.8 - 12.5 fL LAB HEMATOLOGY METHOD 11/07/2024 12:33 PM EDT [facility] nRBC 0.0 <=0.0 per 100 WBCs LAB HEMATOLOGY METHOD 11/07/2024 12:33 PM EDT [facility] Differential Type Automated LAB HEMATOLOGY METHOD 11/07/2024 12:33 PM EDT [facility] Neutrophils % 72 % LAB HEMATOLOGY METHOD 11/07/2024 12:33 PM EDT [facility] Lymphocytes % 17 % LAB HEMATOLOGY METHOD 11/07/2024 12:33 PM EDT [facility] Monocytes % 9 % LAB HEMATOLOGY METHOD 11/07/2024 12:33 PM EDT [facility] Eosinophils % 1 % LAB HEMATOLOGY METHOD 11/07/2024 12:33 PM EDT [facility] Basophils % 1 % LAB HEMATOLOGY METHOD 11/07/2024 12:33 PM EDT [facility] Immature Granulocytes % 0 % LAB HEMATOLOGY METHOD 11/07/2024 12:33 PM EDT [facility] Neutrophils Absolute 7.19(H) 1.60 - 6.10 10*3/uL LAB HEMATOLOGY METHOD 11/07/2024 12:33 PM EDT [facility] Lymphocytes Absolute 1.66 1.20 - 3.90 10*3/uL LAB HEMATOLOGY METHOD 11/07/2024 12:33 PM EDT [facility] Monocytes Absolute 0.88 0.30 - 0.90 10*3/uL LAB HEMATOLOGY METHOD 11/07/2024 12:33 PM EDT [facility] Eosinophils Absolute 0.14 0.00 - 0.50 10*3/uL LAB HEMATOLOGY METHOD 11/07/2024 12:33 PM EDT [facility] Basophils Absolute 0.05 0.00 - 0.10 10*3/uL LAB HEMATOLOGY METHOD 11/07/2024 12:33 PM EDT [facility] Immature Granulocytes Absolute 0.04 0.00 - 0.06 10*3/uL LAB HEMATOLOGY METHOD 11/07/2024 12:33 PM EDT [facility] Blood Venous blood specimen / Unknown Venipuncture / Unknown 11/07/2024 11:37 AM EDT 11/07/2024 12:24 PM EDT Narrative [facility] - 11/07/2024 12:33 PM EDT Therapeutic decision making should be based on absolute values, rather than percentages. us Nathaly Nowak MD LAB BLOOD ORDERABLES Final Resu lt [facility] [address] [place] [address] * (ABNORMAL) Comprehensive Metabolic Panel, Plasma (11/07/2024 11:37 AM EDT) Glucose, Plasma 173(H) 74 - 99 mg/dL 11/07/2024 1:31 PM EDT [facility] BUN, Plasma 13 8 - 23 mg/dL 11/07/2024 1:31 PM EDT [facility] Creatinine, Plasma 0.92 0.70 - 1.20 mg/dL 11/07/2024 1:31 PM EDT [facility] BUN/Creatinine Ratio 14 11/07/2024 1:31 PM EDT [facility] Sodium, Plasma 136 136 - 145 mmol/L 11/07/2024 1:31 PM EDT [facility] Potassium, Plasma 4.0 3.6 - 4.9 mmol/L 11/07/2024 1:31 PM EDT [facility] Chloride, Plasma 104 97 - 107 mmol/L 11/07/2024 1:31 PM EDT [facility] CO2, Plasma 23 22 - 29 mmol/L 11/07/2024 1:31 PM EDT [facility] Anion Gap 9 6 - 16 mmol/L 11/07/2024 1:31 PM EDT [facility] Total Calcium, Plasma 7.8(L) 8.9 - 10.2 mg/dL 11/07/2024 1:31 PM EDT [facility] Total Protein 5.7(L) 6.3 - 7.9 g/dL 11/07/2024 1:31 PM EDT [facility] Albumin, Plasma 3.0(L) 3.5 - 5.2 g/dL 11/07/2024 1:31 PM EDT [facility] AST, Plasma 15 10 - 50 U/L 11/07/2024 1:31 PM EDT [facility] ALT, Plasma 16 10 - 50 U/L 11/07/2024 1:31 PM EDT [facility] Alkaline Phosphatase, Plasma 119(H) 40 - 115 U/L 11/07/2024 1:31 PM EDT [facility] Total Bilirubin, Plasma <0.2(L) 0.2 - 1.1 mg/dL 11/07/2024 1:31 PM EDT [facility] eGFRcr 92.3 mL/min/1.7 3m*2 11/07/2024 1:31 PM EDT [facility] Comment:Reported eGFRcr in m L/min/1.73m2 is based the CKD-EPI 2020 equation that does not use a race coefficient. Blood Venous blood specimen / Unknown Venipuncture / Unknown 11/07/2024 11:37 AM EDT 11/07/2024 12:23 PM EDT us Nathaly Nowak MD LAB BLOOD ORDERABLES Final Resu lt [facility] [address] [place] [address] * Type and Screen (11/07/2024 11:37 AM [...] ORDERABLES F inal Result Performing Organization Address City/[facility] Co de Phone Number BLOOD BANK [address] * (ABNORMAL) POCT glucose meter (11/07/2024 [...] Comment 11/07/2024 10:36 AM EDT [facility] Gas Meter Installer Helper ID Joy Iraheta 11/07/2024 10:36 AM EDT [facility] Device ID [id number] 11/07/2024 10:36 AM EDT [facility] Specimen Type POC Capillary 11/07/2024 10:36 AM EDT [facility] Blood Capillary blood specimen / Unknown 11/07/2024 10:34 AM EDT 11/07/2024 10:36 AM EDT Nathaly Nowak MD LAB POINT OF CARE TE ST DOCKED DEVICE UNSOLICITED RESULTS Final Result Performing Organization Address City/[facility]/ZIP Co de Phone Number [facility] [address] [place] [address] * (ABNORMAL) POCT glucose meter (11/07/2024 9:34 [...] Comment 11/07/2024 9:36 AM EDT [facility] Gas Meter Installer Helper ID Brigitte Castellon 11/07/2024 9:36 AM EDT [facility] Device ID [id number] 11/07/2024 9:36 AM EDT [facility] Specimen Type POC Capillary 11/07/2024 9:36 AM EDT [facility] Blood Capillary blood specimen / Unknown 11/07/2024 9:34 AM EDT 11/07/2024 9:36 AM EDT Nathaly Nowak MD LAB POINT OF CARE TE ST DOCKED DEVICE UNSOLICITED RESULTS Final Result Performing Organization Address City/State/[facility] Co de Phone Number [facility] [address] [place] [address] * (ABNORMAL) POCT glucose meter (11/07/2024 8:20 [...] Comment 11/07/2024 8:22 AM EDT [facility] Gas Meter Installer Helper ID Estefani Sheth 11/07/2024 8:22 AM EDT [facility] Device ID [id number] 11/07/2024 8:22 AM EDT [facility] Specimen Type POC Capillary 11/07/2024 8:22 AM EDT [facility] Blood Capillary blood specimen / Unknown 11/07/2024 8:20 AM EDT 11/07/2024 8:22 AM EDT Nathaly Nowak MD LAB POINT OF CARE TE ST DOCKED DEVICE UNSOLICITED RESULTS Final Result Performing Organization Address City/[facility] Co de Phone Number [facility]ARE [facility] [address] [place] [address] * (ABNORMAL) POCT glucose meter (11/07/2024 7:21 [...] for testing. Comment 11/07/2024 7:22 AM EDT [facility] Gas Meter Installer Helper ID Brigitte Castellon 11/07/2024 7:22 AM EDT [employer] [facility] Device ID [id number] 11/07/2024 7:22 AM EDT [facility] Specimen Type POC Capillary 11/07/2024 7:22 AM EDT [facility] Blood Capillary blood specimen / Unknown 11/07/2024 7:21 AM EDT 11/07/2024 7:22 AM EDT Nathaly Nowak MD LAB POINT OF CARE TE ST DOCKED DEVICE UNSOLICITED RESULTS Final Result Performing Organization Address City/[facility] Co de Phone Number [facility] [address] [place] [address] * (ABNORMAL) POCT glucose meter (11/07/2024 6:25 [...] Comment 11/07/2024 6:27 AM EDT [facility] Gas Meter Installer Helper ID Nelda Gerber 11/08/19 6:27 AM EDT [facility] LAB Device ID [id number] 11/07/2024 6:27 AM EDT [facility] Specimen Type POC Capillary 11/07/2024 6:27 AM EDT [facility] Blood Capillary blood specimen / Unknown 11/07/2024 6:25 AM EDT 11/07/2024 6:27 AM EDT Nathaly Nowak MD LAB POINT OF CARE TE ST DOCKED DEVICE UNSOLICITED RESULTS Final Result Performing Organization Address City/[facility]/ZIP Co de Phone Number [facility] [address] [place] [address] * (ABNORMAL) POCT glucose meter (11/07/2024 5:03 [...] Comment 11/07/2024 5:08 AM EDT [facility] Gas Meter Installer Helper ID Nelda Gerber 11/08/19 5:08 AM EDT [facility] Device ID [id number] 11/07/2024 5:08 AM EDT [facility] Specimen Type POC Capillary 11/07/2024 5:08 AM EDT [facility] Blood Capillary blood specimen / Unknown 11/07/2024 5:03 AM EDT 11/07/2024 5:08 AM EDT Nathaly Nowak MD LAB POINT OF CARE TE ST DOCKED DEVICE UNSOLICITED RESULTS Final Result Performing Organization Address City/[facility]/ZIP Co de Phone Number [facility] [address] [place] [address] * (ABNORMAL) POCT glucose meter (11/07/2024 4:16 [...] Comment 11/07/2024 4:18 AM EDT [facility] Gas Meter Installer Helper ID Nelda Gerber 11/08/19 4:18 AM EDT [employer] [facility] Device ID [id number] 11/07/2024 4:18 AM EDT [facility] Specimen Type POC Capillary 11/07/2024 4:18 AM EDT [facility] [employer] Blood Capillary blood specimen / Unknown 11/07/2024 4:16 AM EDT 11/07/2024 4:18 AM EDT us Nathaly Nowak MD LAB POINT OF CARE TE ST DOCKED DEVICE UNSOLICITED RESULTS Final Result Performing Organization Address City/State/[facility] Co de Phone Number [facility]ARE [facility] [address] [place] [address] * (ABNORMAL) POCT glucose meter (11/07/2024 3:21 AM EDT) Pathologist [facility] POCT Glucose 141(H) 74 - 99 mg/dL [...] 11/07/2024 3:23 AM EDT [facility] Gas Meter Installer Helper ID Nelda Gerber 11/08/19 3:23 AM EDT [facility] Device ID [id number] 11/07/2024 3:23 AM EDT [facility] Specimen Type POC Capillary 11/07/2024 3:23 AM EDT [facility] Blood Capillary blood specimen / Unknown 11/07/2024 3:21 AM EDT 11/07/2024 3:23 AM EDT Nathaly Nowak MD LAB POINT OF CARE TE ST DOCKED DEVICE UNSOLICITED RESULTS Final Result [facility] [address] [place] [address] * (ABNORMAL) POCT glucose meter (11/07/2024 2:10 [...] for testing. Comment 11/07/2024 2:12 AM EDT [facility] Gas Meter Installer Helper ID Nelda Gerber 11/08/19 25 2:12 AM EDT [facility] Device ID [id number] 11/07/2024 2:12 AM EDT [facility] Specimen Type POC Capillary 11/07/2024 2:12 AM EDT [facility] Blood Capillary blood specimen / Unknown 11/07/2024 2:10 AM EDT 11/07/2024 2:12 AM EDT Nathaly Nowak MD LAB POINT OF CARE TE ST DOCKED DEVICE UNSOLICITED RESULTS Final Result [facility] [address] [place] [address] * (ABNORMAL) POCT glucose meter (11/07/2024 1:08 [...] Comment 11/07/2024 1:10 AM EDT [facility] Gas Meter Installer Helper ID Nelda Gerber 11/08/19 1:10 AM EDT [facility] Device ID [id number] 11/07/2024 1:10 AM EDT [facility] Specimen Type POC Capillary 11/07/2024 1:10 AM EDT [facility] Blood Capillary blood specimen / Unknown 11/07/2024 1:08 AM EDT 11/07/2024 1:10 AM EDT us Nathaly Nowak MD LAB POINT OF CARE TE ST DOCKED DEVICE UNSOLICITED RESULTS Final Result Performing Organization Address City/State/[facility] Co de Phone Number [facility] [address] [place] [address] * (ABNORMAL) POCT glucose meter (11/07/2024 12:10 [...] Comment 11/07/2024 12:13 AM EDT [facility] Gas Meter Installer Helper ID Nelda Gerber 11/08/19 12:13 AM EDT [facility] Device ID [id number] 11/07/2024 12:13 AM EDT [facility] Specimen Type POC Capillary 11/07/2024 12:13 AM EDT [facility] Blood Capillary blood specimen / Unknown 11/07/2024 12:10 AM EDT 11/07/2024 12:13 AM EDT us Nathaly Nowak MD LAB POINT OF CARE TE ST DOCKED DEVICE UNSOLICITED RESULTS Final Result [facility] [address] [place] [address] * (ABNORMAL) POCT glucose meter (11/06/2024 11:14 PM EDT) Pathologist [facility] POCT Glucose 71(L) 74 - 99 mg/dL 11/06/2024 11:16 PM EDT [facility] Comment:Accuracy of a glucos e [...] for testing. Comment 11/06/2024 11:16 PM EDT [facility] Gas Meter Installer Helper ID Nelda Gerber 11/07/19 25 11:16 PM EDT [facility] Device ID [id number] 11/06/2024 11:16 PM EDT [facility] Specimen Type POC Capillary 11/06/2024 11:16 PM EDT [facility] Blood Capillary blood specimen / Unknown 11/06/2024 11:14 PM EDT 11/06/2024 11:16 PM EDT Nathaly Nowak MD LAB POINT OF CARE TE ST DOCKED DEVICE UNSOLICITED RESULTS Final Result [facility] [address] [place] [address] * (ABNORMAL) POCT glucose meter (11/06/2024 10:07 PM EDT) [facility] POCT Glucose 140(H) 74 - [...] 11/06/2024 10:09 PM EDT [facility] Gas Meter Installer Helper ID Nelda Gerber 11/07/19 10:09 PM EDT [facility] LAB Device ID [id number] 11/06/2024 10:09 PM EDT [facility] Specimen Type POC Capillary 11/06/2024 10:09 PM EDT [facility] Blood Capillary blood specimen / Unknown 11/06/2024 10:07 PM EDT 11/06/2024 10:09 PM EDT Nathaly Nowak MD LAB POINT OF CARE TE ST DOCKED DEVICE UNSOLICITED RESULTS Final Result Performing Organization Address City/[facility]/ZIP Co de Phone Number [facility] [address] [place] [address] * (ABNORMAL) POCT glucose meter (11/06/2024 8:22 PM EDT) [facility] POCT Glucose 256(H) 74 - [...] Comment 11/06/2024 8:25 PM EDT [facility] Gas Meter Installer Helper ID Nelda Gerber 11/07/19 8:25 PM EDT [facility] LAB Device ID [id number] 11/06/2024 8:25 PM EDT [facility] Specimen Type POC Capillary 11/06/2024 8:25 PM EDT [facility] Blood Capillary blood specimen / Unknown 11/06/2024 8:22 PM EDT 11/06/2024 8:25 PM EDT Nathaly Nowak MD LAB POINT OF CARE TE ST DOCKED DEVICE UNSOLICITED RESULTS Final Result Performing Organization Address City/[facility]/ZIP Co de Phone Number [facility] [address] [place] [address] * (ABNORMAL) POCT glucose meter (11/06/2024 7:31 PM EDT) [facility] POCT Glucose 359(H) 74 - [...] Comment 11/06/2024 7:32 PM EDT [facility] Gas Meter Installer Helper ID Nelda Gerber 11/07/19 7:32 PM EDT [facility] Device ID [id number] 11/06/2024 7:32 PM EDT [facility] Specimen Type POC Capillary 11/06/2024 7:32 PM EDT [facility] Blood Capillary blood specimen / Unknown 11/06/2024 7:31 PM EDT 11/06/2024 7:32 PM EDT Nathaly Nowak MD LAB POINT OF CARE TE ST DOCKED DEVICE UNSOLICITED RESULTS Final Result Performing Organization Address City/State/[facility] Co de Phone Number [facility] [address] [place] [address] * (ABNORMAL) POCT glucose meter (11/06/2024 6:15 PM EDT) [facility] POCT Glucose 368(H) 74 - [...] Comment 11/06/2024 6:17 PM EDT [facility] Gas Meter Installer Helper ID Estefani Sheth 11/06/2024 6:17 PM EDT [facility] LAB Device ID [id number] 11/06/2024 6:17 PM EDT [facility] Specimen Type POC Capillary 11/06/2024 6:17 PM EDT [facility] Blood Capillary blood specimen / Unknown 11/06/2024 6:15 PM EDT 11/06/2024 6:17 PM EDT Nathaly Nowak MD LAB POINT OF CARE TE ST DOCKED DEVICE UNSOLICITED RESULTS Final Result Performing Organization Address City/[facility] Co de Phone Number [facility] [address] [place] [address] * (ABNORMAL) POCT glucose meter (11/06/2024 4:57 [...] for testing. Comment 11/06/2024 4:58 PM EDT [facility] Gas Meter Installer Helper ID Estefani Sheth 11/06/2024 4:58 PM EDT [facility] Device ID [id number] 11/06/2024 4:58 PM EDT [facility] Specimen Type POC Capillary 11/06/2024 4:58 PM EDT [facility] Blood Capillary blood specimen / Unknown 11/06/2024 4:57 PM EDT 11/06/2024 4:58 PM EDT Nathaly Nowak MD LAB POINT OF CARE TE ST DOCKED DEVICE UNSOLICITED RESULTS Final Result [facility] [address] [place] [address] * (ABNORMAL) POCT glucose meter (11/06/2024 2:08 [...] Comment 11/06/2024 2:09 PM EDT [facility] Gas Meter Installer Helper ID Brigitte Castellon 11/06/2024 2:09 PM EDT [facility] Device ID [id number] 11/06/2024 2:09 PM EDT [facility] Specimen Type POC Capillary 11/06/2024 2:09 PM EDT [facility] Blood Capillary blood specimen / Unknown 11/06/2024 2:08 PM EDT 11/06/2024 2:09 PM EDT Nathaly Nowak MD LAB POINT OF CARE TE ST DOCKED DEVICE UNSOLICITED RESULTS Final Result Performing Organization Address City/State/[facility] Co de Phone Number [facility] [address] [place] [address] * (ABNORMAL) POCT glucose meter (11/06/2024 12:27 PM EDT) [facility] POCT Glucose 228(H) 74 - [...] Comment 11/06/2024 12:28 PM EDT [facility] Gas Meter Installer Helper ID Jacinta Galloway 11/06/2024 12:28 PM EDT [facility] Device ID [id number] 11/06/2024 12:28 PM EDT [facility] Specimen Type POC Capillary 11/06/2024 12:28 PM EDT [facility] Blood Capillary blood specimen / Unknown 11/06/2024 12:27 PM EDT 11/06/2024 12:28 PM EDT Nathaly Nowak MD LAB POINT OF CARE TE ST DOCKED DEVICE UNSOLICITED RESULTS Final Result [facility] [address] [place] [address] * (ABNORMAL) Fungal Culture, Tissue and ISIDRO (11/06/2024 11:34 AM EDT) Culture Reading Mycological 4 Weeks [place] parapsilosis (A) 12/05/2024 8:36 AM EDT [facility] Comment: This isolate has been identified using the FDA Approved [employer] [place] System The organism value for this result has been updated. These results have been appended to the previously preliminary verified report. Edited result: Previously reported as Yeast on 11/11/2024 at 1317 EDT. ISIDRO No fungal elements seen 12/05/2024 8:36 AM EDT [facility] Tissue Topography unknown / Unknown [...] Nowak MD LAB MICROBIOLOGY - [facility] Final Result [facility] [address] [place] [address] * (ABNORMAL) Tissue Culture and Gram Stain (11/06/2024 11:34 AM EDT) Culture Moderate Growth 7:35 AM EDT [facility] Culture 2+ Enterobacter cloacae complex(A) ANGÉLICA 11/15/2024 7:35 AM EDT [facility] Comment: This isolate has been identified using the FDA Approved [employer] [place] System The organism value for this result has been updated. These results have been appended to the previously preliminary verified report. Edited result: Previously reported as Gram Negative Jesus on 11/07/2024 at 1434 EDT. Culture 2+ Streptococcus mitis/oralis group(A) ANGÉLICA 11/15/2024 7:35 AM EDT [facility] Comment: This isolate has been identified using the FDA Approved [employer] [place] System The organism value for this result has been updated. These results have been appended to the previously preliminary verified report. Culture 2+ Pasteurella stomatis(A) ANGÉLICA 11/15/2024 7:35 AM EDT [facility] Comment: This result was determined by MALDI tof mass spectrometry using the [employer] SARL database and is for research use only. The organism value for this result has been updated. These results have been appended to the previously preliminary verified report. Gram Stain Result Few Gram negative rods(A) 11/15/2024 7:35 AM EDT [facility] Gram Stain Result Moderate Polymorphonuclear leukocytes(A) 11/15/2024 7:35 AM EDT [facility] Gram Stain Result Few Gram positive cocci in pairs(A) 11/15/2024 7:35 AM EDT [facility] Tissue Topography unknown / Unknown 11/06/2024 11:34 AM EDT 11/06/2024 12:18 PM EDT Comment:Pre-op diagnosis: Surgical wound infection [T81.49XA] Narrative [facility] - 11/15/2024 7:35 AM EDT [...] GENERAL ATIYA FRITZ Edited Result - Final [facility] [address] [place] [address] * (ABNORMAL) Anaerobic Culture (11/06/2024 11:34 AM EDT) Culture No anaerobes isolated 11/14/2024 1:25 PM EDT [facility] Culture Staphylococcus pseudintermedius( A) 11/14/2024 1:25 PM EDT [facility] Comment: This result was determined by MALDI tof mass spectrometry using the [employer] SARL database and is for research use only. This is an appended report. These results have been appended to a previously final verified report. Tissue Topography unknown / Unknown 11/06/2024 11:34 AM EDT 11/06/2024 12:18 PM EDT Comment:Pre-op diagnosis: Surgical wound infection [T81.49XA] Narrative [facility] - 11/14/2024 1:25 PM EDT [...] GENERAL ATIYA FRITZ Edited Result - Final [facility] [address] [place] [address] * (ABNORMAL) Routine Culture and Gram Stain (11/06/2024 11:29 AM EDT) Culture Moderate Growth 5:29 PM EDT [facility] Culture Enterobacter cloacae complex(A) 11/08/2024 5:29 PM EDT [facility] Comment: This isolate has been identified using the FDA Approved [employer] System For susceptibility results refer to: - [id number] The organism value for this result has been updated. These results have been appended to the previously preliminary verified report. Gram Stain Result No polymorphonuclear leukocytes seen 11/08/2024 5:29 PM EDT [facility] Gram Stain Result No organisms seen 11/08/2024 5:29 PM EDT [facility] Swab Topography unknown / Unknown 11/06/2024 11:29 AM EDT 11/06/2024 12:19 PM EDT Comment:Pre-op diagnosis: Surgical wound infection [T81.49XA] us Nathaly Nowak MD LAB MICROBIOLOGY - GENERAL ATIYA FRITZ Final Result Performing Organization Address [facility] Co de Phone Number [facility] [address] [place] [address] * Fungal Culture, Routine (11/06/2024 11:29 AM EDT) Culture No Fungal Growth at 1 Week 11/13/2024 8:29 AM EDT [facility] Swab Topography unknown / Unknown 11/06/2024 11:29 AM EDT 11/06/2024 12:19 PM EDT Comment:Pre-op diagnosis: Surgical wound infection [T81.49XA] us Nathaly Nowak MD LAB MICROBIOLOGY - GENERAL ORDE RABONEIDA Final Result Performing Organization Address [facility] Co de Phone Number [facility] [address] [place] [address] * (ABNORMAL) Anaerobic Culture (11/06/2024 11:29 AM EDT) Culture No anaerobes isolated 11/14/2024 1:25 PM EDT [facility] Culture Streptococcus mitis/oralis group(A) 11/14/2024 1:25 PM EDT [facility] Comment: This result was determined by MALDI tof mass spectrometry using the [employer] SARL database and is for research use only. The organism value for this result has been updated. These results have been appended to the previously preliminary verified report. This is a corrected result. Previous organism was Mixed skin clifton on 11/10/2024 at 0718 EDT. Culture Staphylococcus pseudintermedius( A) 11/14/2024 1:25 PM EDT [facility] Comment: This isolate has been identified using the FDA Approved [employer] [place] System This is an appended report. These results have been appended to a previously final verified report. Swab Topography unknown / Unknown 11/06/2024 11:29 AM EDT 11/06/2024 12:19 PM EDT Comment:Pre-op diagnosis: Surgical wound infection [T81.49XA] Narrative [facility] - 11/14/2024 1:25 PM EDT [...] Edited Result - Final Performing Organization Address [facility]/ZIP Co de Phone Number [facility] [address] [place] [address] * Routine Culture and Gram Stain (11/06/2024 11:28 AM EDT) Culture No growth at day 4 2024 11:24 AM EDT [facility] Gram Stain Result No organisms seen 11/10/2024 11:24 AM EDT [facility] Gram Stain Result No polymorphonuclear leukocytes seen 11/10/2024 11:24 AM EDT [facility] Swab Topography unknown / Unknown 11/06/2024 11:28 AM EDT 11/06/2024 12:20 PM EDT Comment:Pre-op diagnosis: Surgical wound infection [T81.49XA] Nathaly Nowak MD LAB MICROBIOLOGY - GENERAL ATIYA FRITZ Final Result Performing Organization Address [facility] Co de Phone Number [facility] [address] [place] [address] * Fungal Culture, Routine (11/06/2024 11:28 AM EDT) Culture No Fungal Growth at 1 Week 11/13/2024 8:29 AM EDT [facility] Swab Topography unknown / Unknown 11/06/2024 11:28 AM EDT 11/06/2024 12:20 PM EDT Comment:Pre-op diagnosis: Surgical wound infection [T81.49XA] Nathaly Nowak MD LAB MICROBIOLOGY - GENERAL ORDE LAM Final Result Performing Organization Address City/[facility]/ZIP Co de Phone Number [facility] [address] [place] [address] * Anaerobic Culture (11/06/2024 11:28 AM EDT) Culture No growth at day 4 11/13/2024 12:53 PM EDT [facility] Swab Topography unknown / Unknown 11/06/2024 11:28 AM EDT 11/06/2024 12:20 PM EDT Comment:Pre-op diagnosis: Surgical wound infection [T81.49XA] us Nathaly Nowak MD LAB [facility]OLOGY [facility] Final Result Performing Organization Address City/[facility]/ZIP Co de Phone Number [facility] [address] [place] [address] * (ABNORMAL) POCT glucose meter (11/06/2024 10:16 AM EDT) [facility] POCT [...] Comment 11/06/2024 10:18 AM EDT [facility] Gas Meter Installer Helper ID Lacy Griffin 11/07/19 10:18 AM EDT [facility] Device ID [id number] 11/06/2024 10:18 AM EDT [facility] Specimen Type POC Capillary 11/06/2024 10:18 AM EDT [facility] Blood Capillary blood specimen / Unknown 11/06/2024 10:16 AM EDT 11/06/2024 10:18 AM EDT us Nathaly Nowak MD LAB POINT OF CARE TE ST DOCKED DEVICE UNSOLICITED RESULTS Final Result Performing Organization Address City/[facility]/ZIP Co de Phone Number [facility] [address] [place] [address] * (ABNORMAL) POCT glucose meter (11/06/2024 5:58 AM EDT) [facility] POCT Glucose 182(H) 74 - [...] 11/06/2024 6:01 AM EDT [facility] Gas Meter Installer Helper ID Raj Laird 11/07/19 6:01 AM EDT [facility] LAB Device ID [id number] 11/06/2024 6:01 AM EDT [facility] Specimen Type POC Capillary 11/06/2024 6:01 AM EDT [facility] Blood Capillary blood specimen / Unknown 11/06/2024 5:58 AM EDT 11/06/2024 6:01 AM EDT Nathaly Nowak MD LAB POINT OF CARE TE ST DOCKED DEVICE UNSOLICITED RESULTS Final Result [facility] [address] [place] [address] * (ABNORMAL) POCT glucose meter (11/06/2024 5:36 AM EDT) [facility] POCT Glucose 202(H) 74 - [...] 11/06/2024 5:38 AM EDT [facility] Gas Meter Installer Helper ID Shahid Sanches 11/06/2024 5:38 AM EDT [facility] Device ID [id number] 11/06/2024 5:38 AM EDT [facility] Specimen Type POC Capillary 11/06/2024 5:38 AM EDT [facility] Blood Capillary blood specimen / Unknown 11/06/2024 5:36 AM EDT 11/06/2024 5:38 AM EDT us Nathaly Nowak MD LAB POINT OF CARE TE ST DOCKED DEVICE UNSOLICITED RESULTS Final Result Performing Organization Address City/[facility] Co de Phone Number [facility] [address] [place] [address] * (ABNORMAL) Hemoglobin A1c (11/06/2024 1:07 AM EDT) Hemoglobin A1c 7.6(H) <5.7 % 11/06/2024 11:09 AM EDT [facility] Blood Venous blood specimen / Unknown Venipuncture / Unknown 11/06/2024 1:07 AM EDT 11/06/2024 1:26 AM EDT Narrative [facility] - 11/06/2024 11:09 AM EDT [...] Address City/[facility] Co de Phone Number [facility] [address] [place] [address] * Blood Culture (Aerobic/Anaerobet Set) (11/06/2024 1:07 AM EDT) Culture No growth at day 5 11/11/2024 2:49 AM EDT [facility] Blood Structure of right hand / Unknown Venipuncture / Unknown 11/06/2024 1:07 AM EDT 11/06/2024 2:36 AM EDT us Nathaly Nowak MD LAB MICROBIOLOGY - GENERAL ORDE RABLES Final Result [facility] [address] [place] [address] * Blood Culture (Aerobic/Anaerobet Set) (11/06/2024 1:07 AM EDT) Pathologist [facility] Culture No growth at day 5 11/11/2024 3:01 AM EDT [facility] Blood Structure of antecubital vein / Unknown Venipuncture / Unknown 11/06/2024 1:07 AM EDT 11/06/2024 2:36 AM EDT us Nathaly Nowak MD LAB MICROBIOLOGY - GENERAL [facility] Final Result [facility] [address] [place] [address] * (ABNORMAL) Basic metabolic panel (11/06/2024 1:07 AM EDT) Glucose, Plasma 207(H) 74 - 99 mg/dL 11/06/2024 1:41 AM EDT [facility] BUN, Plasma 20 8 - 23 mg/dL 11/06/2024 1:41 AM EDT [facility] Creatinine, Plasma 0.92 0.70 - 1.20 mg/dL 11/06/2024 1:41 AM EDT [facility] BUN/Creatinine Ratio 22 11/06/2024 1:41 AM EDT [facility] Sodium, Plasma 136 136 - 145 mmol/L 11/06/2024 1:41 AM EDT [facility] Potassium, Plasma 4.5 3.6 - 4.9 mmol/L 11/06/2024 1:41 AM EDT [facility] Chloride, Plasma 104 97 - 107 mmol/L 11/06/2024 1:41 AM EDT [facility] CO2, Plasma 22 22 - 29 mmol/L 11/06/2024 1:41 AM EDT [facility] Anion Gap 10 6 - 16 mmol/L 11/06/2024 1:41 AM EDT [facility] Total Calcium, Plasma 9.0 8.9 - 10.2 mg/dL 11/06/2024 1:41 AM EDT [facility] eGFRcr 92.3 mL/min/1.7 3m*2 11/06/2024 1:41 AM EDT [facility] Comment:Reported [...] [place]ZIP Co de Phone Number [facility] [address] [place] [address] * Phosphorus (11/06/2024 1:07 AM EDT) Phosphorus, Plasma 3.2 2.5 - 4.5 mg/dL 11/06/2024 1:41 AM EDT [facility] Blood Venous blood specimen / Unknown Venipuncture / Unknown 11/06/2024 1:07 AM EDT 11/06/2024 1:12 AM EDT Nathaly Nowak MD LAB BLOOD ORDERABLES Final Resu lt Performing Organization Address [facility] Co de Phone Number [facility] [address] [place] [address] * Magnesium (11/06/2024 1:07 AM EDT) Magnesium, Plasma 2.2 1.9 - 2.4 mg/dL 11/06/2024 1:41 AM EDT [facility] Blood Venous blood specimen / Unknown Venipuncture / Unknown 11/06/2024 1:07 AM EDT 11/06/2024 1:12 AM EDT Nathaly Nowak MD LAB BLOOD ORDERABLES Final Resu lt Performing Organization Address City/[facility]/ZIP Co de Phone Number [facility] [address] [place] [address] * (ABNORMAL) CBC (11/06/2024 1:07 AM EDT) [facility] Signature WBC Count 9.70 3.70 - 10.30 10*3/uL LAB HEMATOLOGY METHOD 11/06/2024 1:19 AM EDT [facility] RBC Count 2.89(L) 4.60 - 6.10 10*6/uL LAB HEMATOLOGY METHOD 11/06/2024 1:19 AM EDT [facility] HGB 8.8(L) 13.7 - 17.5 g/dL LAB HEMATOLOGY METHOD 11/06/2024 1:19 AM EDT [facility] HCT 26.2(L) 40.0 - 51.0 % LAB HEMATOLOGY METHOD 11/06/2024 1:19 AM EDT [facility] Platelet Count 542(H) 155 - 369 10*3/uL LAB HEMATOLOGY METHOD 11/06/2024 1:19 AM EDT [facility] MCV 91 79 - 98 fL LAB HEMATOLOGY METHOD 11/06/2024 1:19 AM EDT [facility] MCH 30.4 26.0 - 32.0 pg LAB HEMATOLOGY METHOD 11/06/2024 1:19 AM EDT [facility] MCHC 33.6 30.7 - 35.5 g/dL LAB HEMATOLOGY METHOD 11/06/2024 1:19 AM EDT [facility] RDW 13.2 11.5 - 14.5 % LAB HEMATOLOGY METHOD 11/06/2024 1:19 AM EDT [facility] MPV 8.7(L) 8.8 - 12.5 fL LAB HEMATOLOGY METHOD 11/06/2024 1:19 AM EDT [facility] nRBC 0.0 <=0.0 per 100 WBCs LAB HEMATOLOGY METHOD 11/06/2024 1:19 AM EDT [facility] Blood Venous blood specimen / Unknown Venipuncture / Unknown 11/06/2024 1:07 AM EDT 11/06/2024 1:12 AM EDT us Nathaly Nowak MD LAB BLOOD ORDERABLES Final Resu lt [facility] [address] [place] [address] * Gold Top (11/06/2024 12:58 AM EDT) Extra Hold for add-ons 11/06/2024 3:21 AM EDT [facility] Comment:Auto resulted. Blood Venous blood specimen / Unknown 11/06/2024 12:58 AM EDT 11/06/2024 1:13 AM EDT us Nathaly Nowak MD LAB BLOOD ORDERABLES Final Resu lt [facility] [address] [place] [address] * Gold Top (11/06/2024 12:58 AM EDT) Extra Hold for add-ons 11/06/2024 3:21 AM EDT [facility] Comment:Auto resulted. Blood Venous blood specimen / Unknown 11/06/2024 12:58 AM EDT 11/06/2024 1:13 AM EDT us Nathaly Nowak MD LAB BLOOD ORDERABLES Final Resu lt Performing Organization Address City/[facility]/ZIP Co de Phone Number [facility] [address] [place] [address] * Light Green Top (11/06/2024 12:58 AM EDT) Extra Hold for add-ons 11/06/2024 3:21 AM EDT [facility] Comment:Auto resulted. Blood Venous blood specimen / Unknown 11/06/2024 12:58 AM EDT 11/06/2024 1:13 AM EDT us Nathaly Nowak MD LAB BLOOD ORDERABLES Final Resu lt Performing Organization Address City/[facility]/ZIP Co de Phone Number [facility] [address] [place] [address] * Light Blue Top (11/06/2024 12:58 AM EDT) Extra Hold for add-ons 11/06/2024 3:21 AM EDT [facility] Comment:Auto resulted. Blood Venous blood specimen / Unknown 11/06/2024 12:58 AM EDT 11/06/2024 1:13 AM EDT us Nathaly Nowak MD LAB BLOOD ORDERABLES Final Resu lt Performing Organization Address [facility] Co de Phone Number [facility] [address] [place] [address] * Light Blue Top (11/06/2024 12:58 AM EDT) Pathologist [facility] Extra Hold for add-ons 11/06/2024 3:21 AM EDT [facility] Comment:Auto resulted. Blood Venous blood specimen / Unknown 11/06/2024 12:58 AM EDT 11/06/2024 1:13 AM EDT Nathaly Nowak MD LAB BLOOD ORDERABLES Final Resu lt Performing Organization Address [facility] de Phone Number [facility] [address] [place] [address] * (ABNORMAL) POCT glucose meter (11/06/2024 12:45 AM EDT) Pathologist [facility] POCT Glucose 204(H) 74 - 99 mg/dL [...] 11/06/2024 12:48 AM EDT [facility] Gas Meter Installer Helper ID Raj Laird 11/07/19 12:48 AM EDT [facility] Device ID [id number] 11/06/2024 12:48 AM EDT [facility] Specimen Type POC Capillary 11/06/2024 12:48 AM EDT [facility] Blood Capillary blood specimen / Unknown 11/06/2024 12:45 AM EDT 11/06/2024 12:48 AM EDT Nathaly Nowak MD LAB POINT OF CARE TE ST DOCKED DEVICE UNSOLICITED RESULTS Final Result [facility] [address] [place] [address] documented in this encounter Visit Diagnoses Diagnosis [...] needed, Starting on Mon11/06/24 at 0031, Until [facility] 11/14/24 at 1804, Routine, line care sodium [...] needed, Starting on Mon11/06/24 at 0753, Until [facility] 11/14/24 at 1804, Routine, On Unit - Preprocedure, line care sodium chloride 0.9 % flush 10 mL 10 mL, Intravenous, Every 12 hours, First dose on Rust 11/09/24 at 1515, Until Discontinued, Routine Given 11/14/2024 2:42 PM EDT 10 mL Given 11/14/2024 3:03 AM EDT 10 mL Given 11/13/2024 4:43 PM EDT 10 mL Sodium Hypochlorite (Dakin's (HALF-Strength)) external solution 1 Application Irrigation, Daily, First dose on Rust 11/09/24 at 0945, Until Discontinued, Routine Given [...] documented as of this encounter Care Teams Brand Sales Manager Relationship Specialty Start Date End Date Asad Victor MD [address] [place] [address] PCP - General 10/07/22 documented as of this encounter
--- OUTSIDE RECORDS SUMMARY | 2024-11-06 10:47 | XMS_ITS | Encounter Summary ---
Author Organization Healthcare Address [address] [place] [address] Care Team Providers Care Maintenance Parts Technician Name Role Phone Asad Victor MD Primary Care Provider + [phone] Reason for Visit * Auth/Cert (Routine) Specialty Diagnoses / Procedures Referred By Contac t Referred To Contact Diagnoses Wound infection Post-op Vasc Sx wounds - sx on 10/17 at Nathaly Nowak MD [address] [facility] [address] [place] [address] Phone: tel: fax: [facility] A Emergency Department [address] [place] [address] Phone: tel: Referral ID Status Reason Start Date Expiration Date Visits Re quested Visits Authorized [id number] 1 1 Encounter Details Date Type Department Care Team (Late st Contact Info) Description 11/06/2024 10:47 AM EDT Anesthesia Event [facility] OPERATING ROOM [address] [place] [address] Bill Sue MD [address] [place] [address] Sabrina Mckeon PA [address] [facility] [address] [place] [address] Anesthesia Record Procedure Summary Procedure [...] drink first t dino in the morning (EYE-VINYL INSTALLER) to steady your nerves or to [...] and Staff Patient location during procedure: OR SOCIAL MEDIA EXECUTIVE: Asad Lechuga CRNA, DNP Performed: SOCIAL MEDIA EXECUTIVE Patient Condition Indications for airway management: anesthesia [...] placement (Left) Location: [facility] OR 16 / [place] OR Surgeons: Nathaly Nowak MD [facility] Mono Ana Bobby is a [...] Abnormal Ventricular Rate 85 Atrial Rate 85 HI Interval 146 QRSD Interval 128 QT Interval 390 QTC Interval 464 P [place] 52 R [place] 263 T Wave [place] 57 Diagnosis Atrial-sensed ventricular-paced rhythm Diagnosis Biventricular [...] is no recent study available for direct cigq-ik-fsop comparison. [facility]: Pre-operative CIED Report Assessment and Sara- Procedural Reommendations: Name: Mono Bobby Date: 10/17/2024 : 1960 Age: 64 y.o. Patient has a Textile Engraver: Berger DISTILLATION OPERATOR HELPER-PM Remaining battery longevity adequate. Lead [...] CEA 2016), dysrhythmias (3rd degree AV block DISTILLATION OPERATOR HELPER-P placed 08/2023 for Wenkeback with 11 sec pause), hyperlipidemia, pacemaker and PVD. Does not have angina, CHF, murmur, orthopnea, syncope or valvular heart disease. hypertension: Cardio additional comments: Follows with OSH Card last seen 09/25/24 ([place]) . Respiratory: home oxygen (2L). no asthma: [...] ENDARTERECTOMY N/A 2017 Endarterectomy Carotid Artery from [employer] CORONARY ANGIOPLASTY Left Coronary Angiography With Concomitant Left Heart Catheterization from [employer] CORONARY ARTERY BYPASS GRAFT N/A 2018 3V ELBOW SURGERY Right ENDARTERECTOMY Left 10/17/2024 common/SFA/Profunda thromboendarterectomy, EIA/BOILER WASHER stent HERNIA REPAIR KNEE ARTHROSCOPY Left VASCULAR SURGERY Left 09/21/2024 BOILER WASHER pseudoaneurym injection [5] Social History Tobacco Use [...] Visit [facility] [address] [facility] [place] [address] Oscar Appiah MD [address] [facility] [address] [place] [address] 12/19/2024 7:30 AM EDT Appointment [facility] [address] [facility] 5th Floor [address] [place] [address] 12/19/2024 8:00 AM EDT Appointment [facility] [address] [place] [address] 12/19/2024 9:00 AM EDT Office Visit [facility] [address] [place] [address] Nathaly Nowak MD [address] [facility] [address] [place] [address] documented as of this encounter Goals Goal Patient Goal Type Associated Problems Recent Progress Patient-Stated? Author Autogenera louise Goal Care Plan Autogenerated Problem No Ekta Arnett documented as of this encounter Procedures Procedure Name Priority Date/Time Associated Diagnosis Comments PB ANESTHESIA PLACEHOLDER Routine 11/06/2024 10:58 AM EDT [place] AN ELECTIVE ENDOTRACHEAL AIRWAY Routine 11/06/2024 10:58 AM EDT documented in this encounter Results * [place] AN ELECTIVE ENDOTRACHEAL AIRWAY, PB ANESTHESIA PLACEHOLDER (11/06/2024 10:58 AM EDT) Narrative Asad Lechuga CRNA, DNP - 11/06/2024 10:58 AM EDT Asad Lechuga CRNA, DNP 11/06/2024 11:05 AM Airway Date/Time: 11/06/2024 10:58 AM Reason: elective Airway not difficult General Information and Staff Patient location during procedure: OR SOCIAL MEDIA EXECUTIVE: Asad Lechuga CRNA, DNP Performed: ISH Patient [...] documented as of this encounter Care Teams Maintenance Parts Technician Relationship Specialty Start Date End Date Asad Victor MD [address] [place] [address] PCP - General 10/07/22 documented as of this encounter
--- OUTSIDE RECORDS SUMMARY | 2024-11-18 13:10 | XMS_ITS | Encounter Summary ---
Author Organization [employer] ([place], [place], [place], [place]) Address [address] [place] [address] Care Team Providers Care Adjutant General Name Role Phone Unavailable Primary Care Provider Unavailabl e Reason for Visit * Reason Comments Wound Care Encounter Details Date Type Department Care Team (Late st Contact Info) Description 11/18/2024 1:10 PM EDT Office Visit [facility] 1 [place] [address] Jerry Monroe Jr., MD [address] [place] [address] Non-pressure chronic ulcer of skin of [...] health nurse( if you have home health) [facility] for an appointment. documented in this [...] (mmHg) 125 Canister Changed Yes * Jerry Monore Jr., MD - 11/18/2024 1:10 PM EDTAssociated Order(s): Debridement; Debridement Subjective 11/18/24 - CJA -this is a gentleman who comes in today with 2 wounds of his left groin and left upper leg. Patient was admitted to the [facility] on November 05, 2024 and dischargedon November [...] line. Patient is getting daily infusions at [facility] through his PICC line for [...] provider verified the correct patient, procedure, equipment, direct support staff member, and site/side marked as required. Debridement Details [...] provider verified the correct patient, procedure, equipment, direct support staff member, and site/side marked as required. Debridement Details [...] Care Team (Late st Contact Info) Description 12/09/2024 3:30 PM EDT Clinical Support [address] [address] 12/11/2024 2:40 PM EDT Office Visit [address] [address] Jerry Monroe Jr., MD [address] [place] [address] 12/13/2024 3:30 PM EDT Clinical Support [address] [address] 12/16/2024 3:30 PM EDT Clinical Support [address] [address] 12/18/2024 3:00 PM EDT Office Visit [address] [address] Jerry Monroe Jr., MD [address] [place] [address] 12/20/2024 3:30 PM EDT Clinical Support [address] [address] documented as of this encounter Procedures Procedure Name Priority Date/Time Associated Diagnosis Comments MD DEBRIDEMENT MUSCLE &/FASCIA EA ADDL 20 SQ CM Routine 11/18/2024 1:10 PM EDT 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) Localized tissue (HCC) Other specified local infections of the skin and subcutaneous tissue MD DEBRIDEMENT MUSCLE &/FASCIA EA ADDL 20 SQ CM Routine 11/18/2024 1:10 PM EDT 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) Localized tissue (HCC) Other specified local infections of the skin and subcutaneous tissue MD DEBRIDEMENT MUSCLE &/FASCIA 1ST 20 SQ CM/< Routine 11/18/2024 1:10 PM EDT 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) Localized tissue (HCC) Other specified local infections of the skin and subcutaneous tissue MD DEBRIDEMENT MUSCLE &/FASCIA EA ADDL 20 SQ CM Routine 11/18/2024 1:10 PM EDT 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) Localized tissue (HCC) Other specified local infections of the skin and subcutaneous tissue MD DEBRIDEMENT MUSCLE &/FASCIA EA ADDL 20 SQ CM Routine 11/18/2024 1:10 PM EDT 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) Localized tissue (HCC) Other specified local infections of the skin and subcutaneous tissue MD DEBRIDEMENT MUSCLE &/FASCIA 1ST 20 SQ CM/< Routine 11/18/2024 1:10 PM EDT 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 Debridement Details [...] MD PROCEDURE/MINOR SURGICAL ORDERABLES Final Result * MD DEBRIDEMENT MUSCLE &/FASCIA 1ST 20 SQ CM/<, MD DEBRIDEMENT MUSCLE &/FASCIA EA ADDL 20SQ CM, MD DEBRIDEMENT MUSCLE &/FASCIA EA ADDL 20 SQ [...] provider verified the correct patient, procedure, equipment, direct support staff member, and site/side marked as required. Debridement Details [...]
--- OUTSIDE RECORDS SUMMARY | 2024-11-20 14:15 | XMS_ITS | Encounter Summary ---
Author Organization [employer] ([place], [place], [place], [place]) Address [address] [place] [address] Care Team Providers Care Talent Associate Name Role Phone Unavailable Primary Care Provider Unavailabl e Reason for Visit * Reason Comments Wound Care Nurse visit for woun d vac change, wound care and dressing change Encounter Details Date Type Department Care Team (Late st Contact Info) Description 11/20/2024 2:15 PM EDT Clinical Support [facility] 1 [place] [address] Jerry Monroe Jr., MD [address] [place] [address] Non-pressure chronic ulcer of skin of [...] Description 12/09/2024 3:30 PM EDT Clinical Support [facility] [place] 1 [place] [address] 12/11/2024 2:40 PM EDT Office Visit [facility] 1 [place] [address] Jerry Monroe Jr., MD [address] [place] [address] 12/13/2024 3:30 PM EDT Clinical Support [facility] 1 [place] [address] 12/16/2024 3:30 PM EDT Clinical Support [facility] 1 [place] [address] 12/18/2024 3:00 PM EDT Office Visit [facility] 1 [place] [address] Jerry Monroe Jr., MD [address] [place] [address] 12/20/2024 3:30 PM EDT Clinical Support [facility] 1 [place] [address] documented as of this encounter Results * Wound Treatment (11/22/2024 5:14 PM EDT) us Jerry Monroe Jr., MD NURSING PATHWAYS ORDERABL ES Final Result documented in this encounter Visit Diagnoses Diagnosis 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
--- OUTSIDE RECORDS SUMMARY | 2024-11-22 16:15 | XMS_ITS | Encounter Summary ---
Author Organization [employer] ([place], [place], [place], [place]) Address [address] [place] [address] Care Team Providers Care Grocery Manager Name Role Phone Unavailable Primary Care Provider Unavailabl e Reason for Visit * Reason Comments Wound Care Encounter Details Date Type Department Care Team (Late st Contact Info) Description 11/22/2024 4:15 PM EDT Clinical Support [facility] [address] [place] [address] Jerry Monroe Jr., MD [address] [place] [address] Non-pressure chronic ulcer of skin of [...] Description 12/09/2024 3:30 PM EDT Clinical Support [facility] [place] [address] [place] [address] 12/11/2024 2:40 PM EDT Office Visit [facility] [address] [place] [address] Jerry Monroe Jr., MD [address] [place] [address] 12/13/2024 3:30 PM EDT Clinical Support [facility] [address] [place] [address] 12/16/2024 3:30 PM EDT Clinical Support [facility] [address] [place] [address] 12/18/2024 3:00 PM EDT Office Visit [facility] [address] [place] [address] Jerry Monroe Jr., MD [address] [place] [address] 12/20/2024 3:30 PM EDT Clinical Support [facility] [address] [place] [address] documented as of this encounter Procedures Procedure [...]
--- OUTSIDE RECORDS SUMMARY | 2024-11-27 14:20 | XMS_ITS | Encounter Summary ---
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) Procedures Wound Treatment Jerry Monroe Jr., MD [address] [place] [address] Phone: tel: fax: Referral ID Status Reason Start Date Expiration Date V isits Requested Visits Authorized [id number] New Request 11/27/2024 11/27/2025 3 3 Reason for Visit * Reason Comments Wound Care Encounter Details Date Type Department Care Team (Late st Contact Info) Description 11/27/2024 2:20 PM EDT Office Visit [facility] 1 [place] [address] Jerry Monroe Jr., MD [address] [place] [address] Non-pressure chronic ulcer of skin of [...] upper leg. Patient was admitted to the [facility] on November 05, 2024 and dischargedon [...] line. Patient is getting daily infusions at [facility] through his PICC line for antibiotics. [...] verified the correct patient, procedure, equipment, ground support agent, and site/side marked as required. [...] verified the correct patient, procedure, equipment, ground support agent, and site/side marked as required. [...] [facility] 1 [place] [address] 12/11/2024 2:40 PM EDT Office Visit [facility] 1 [place] [address] Jerry Monroe Jr., MD [address] [place] [address] 12/13/2024 3:30 PM EDT Clinical Support [facility] 1 [place] [address] 12/16/2024 3:30 PM EDT Clinical Support [facility] 1 [place] [address] 12/18/2024 3:00 PM EDT Office Visit [facility] 1 [place] [address] Jerry Monroe Jr., MD [address] [place] [address] 12/20/2024 3:30 PM EDT Clinical Support [facility] 1 [place] [address] documented as of this encounter Procedures Procedure Name Priority Date/Time Associated Diagnosis Comments [place] DEBRIDEMENT MUSCLE &/FASCIA EA ADDL 20 [...] tissue documented in this encounter Results * [place] DEBRIDEMENT MUSCLE &/FASCIA 1ST 20 [...] verified the correct patient, procedure, equipment, ground support agent, and site/side marked as required. [...] verified the correct patient, procedure, equipment, ground support agent, and site/side marked as required. [...]
--- OUTSIDE RECORDS SUMMARY | 2024-11-29 16:00 | XMS_ITS | Encounter Summary ---
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 * Nallely [...] Description 12/09/2024 3:30 PM EDT Clinical Support [facility] 1 [place] [address] 12/11/2024 2:40 PM EDT Office Visit [facility] 1 [place] [address] Jerry Monroe Jr., MD [address] [place] [address] 12/13/2024 3:30 PM EDT Clinical Support [facility] 1 [place] [address] 12/16/2024 3:30 PM EDT Clinical Support [facility] 1 [place] [address] 12/18/2024 3:00 PM EDT Office Visit [facility] 1 [place] [address] Jerry Monroe Jr., MD [address] [place] [address] 12/20/2024 3:30 PM EDT Clinical Support [facility] 1 [place] [address] documented as of this encounter Visit Diagnoses Not on filedocumented in this encounter
--- OUTSIDE RECORDS SUMMARY | 2024-12-02 14:15 | XMS_ITS | Encounter Summary ---
Author Organization [employer] ([place], [place], [place], [place]) Address [address] [place] [address] Care Team Providers Care Dry Room Operator Name Role Phone Unavailable Primary Care Provider Unavailabl e Reason for Visit * Reason Comments Wound Care Nurse visit for woun d vac and dressing change, wound care Encounter Details Date Type Department Care Team (Late st Contact Info) Description 12/02/2024 2:15 PM EDT Clinical Support [facility] 1 [place] [address] Jerry Monroe Jr., MD [address] [place] [address] Non-pressure chronic ulcer of skin of [...] Description 12/09/2024 3:30 PM EDT Clinical Support [facility] [place] 1 [place] [address] 12/11/2024 2:40 PM EDT Office Visit [facility] [place] 1 [place] [address] Jerry Monroe Jr., MD [address] [place] [address] 12/13/2024 3:30 PM EDT Clinical Support [facility] [place] 1 [place] [address] 12/16/2024 3:30 PM EDT Clinical Support [facility] [place] 1 [place] [address] 12/18/2024 3:00 PM EDT Office Visit [facility] [place] 1 [place] [address] Jerry Monroe Jr., MD [address] [place] [address] 12/20/2024 3:30 PM EDT Clinical Support [facility] 1 [place] [address] documented as of this encounter Visit Diagnoses Diagnosis 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
--- OUTSIDE RECORDS SUMMARY | 2024-12-04 13:40 | XMS_ITS | Encounter Summary ---
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.] upper leg. Patient was admitted to the [facility] on November 05, 2024 and dischargedon [...] line. Patient is getting daily infusions at [facility] through his PICC line for antibiotics. He [...] provider verified the correct patient, procedure, equipment, retail support manager, and site/side marked as required. [...] provider verified the correct patient, procedure, equipment, retail support manager, and site/side marked as required. [...] Description 12/09/2024 3:30 PM EDT Clinical Support [facility] [address] [place] [phone] 12/11/2024 2:40 PM EDT Office Visit [facility] 1 [place] [address] Jerry Monroe Jr., MD [address] [place] [address] 12/13/2024 3:30 PM EDT Clinical Support [facility] 1 [place] [address] 12/16/2024 3:30 PM EDT Clinical Support [facility] [address] [place] [address] 12/18/2024 3:00 PM EDT Office Visit 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) Localized tissue (HCC) Other specified local infections of the skin and subcutaneous tissue FL DEBRIDEMENT MUSCLE &/FASCIA 1ST 20 SQ CM/< Routine 12/04/2024 1:40 PM EDT 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) Localized tissue (HCC) Other specified local infections of the skin and subcutaneous tissue [place] DEBRIDEMENT MUSCLE &/FASCIA EA ADDL 20 SQ CM Routine 12/04/2024 1:40 PM EDT 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 [...] MD PROCEDURE/MINOR SURGICAL ORDERABLES Final Result * [place] DEBRIDEMENT MUSCLE &/FASCIA 1ST 20 SQ CM/<, [place] DEBRIDEMENT MUSCLE &/FASCIA EA ADDL 20SQ CM [...] provider verified the correct patient, procedure, equipment, retail support manager, and site/side marked as required. [...]
--- OUTSIDE RECORDS SUMMARY | 2024-12-07 08:12 | XMS_ITS | Encounter Summary ---
Author Organization Healthcare Address [address] [place] [address] Care Team Providers Care Licensed Funeral Director And Embalmer Name Role Phone Asad Victor MD Primary Care Provider + [phone] Encounter Details Date Type Department Care Team (Late st Contact Info) Description 12/04/2024 Telephone [facility] [address] [facility] 5th Floor Wing D, [address] [place] [address] Nathaly Nowak MD [address] [facility] [address] [place] [address] Social History Tobacco Use Types [...] drink first t dino in the morning (EYE-MINERAL INDUSTRY TEACHER) to steady your nerves or to get rid of a hangover? 0 10/18/2021 CAGE Questionnaire Score 0 022 Utilities Answer Date Recorded In the past 12 months has th e [employer], gas, oil, or water company threatened to [...] EDT Returned phone call to Judy at [facility]. Patient previously stated that he is receiving wound care at [facility]. We unfortunately do not have these records at this time, we have sent two requests and are awaiting them at this time. Patient has not yet been seen in clinic for his post-operative appointment. * Telephone Encounter - [facility] - 12/04/2024 11:35 AM EDT Clinical Concern/Question Reason for Call: judy at [facility] calling for wound measurements for wound vac. Please call Best contact number: Other: [phone] Optimal time of day to reach caller: [...] Description 12/13/2024 2:00 PM EDT Office Visit [facility] [address] [place] [address] Oscar Appiah MD [address] [facility] [address] [place] [address] 12/19/2024 7:30 AM EDT Appointment [facility] Vascular Lab [address] 5th Floor Wing [address], [address] [place] [address] 12/19/2024 8:00 AM EDT Appointment [facility] Vascular Lab [address] [facility] 5th Floor Wing D, [address] [place] [address] 12/19/2024 9:00 AM EDT Office Visit [facility] [address] [facility] 5th Floor Wing [address], [address] [place] [address] Nathaly Nowak MD [address] [facility] [address] [place] [address] documented as of this encounter [...] as of this encounter Care Teams Licensed Funeral Director And Embalmer Relationship Specialty Start Date End Date Asad Victor MD [address] [place] [address] PCP - General 10/07/22 documented as of this encounter
--- OUTSIDE RECORDS SUMMARY | 2024-12-07 08:21 | XMS_ITS | Encounter Summary ---
Author Organization [employer] ([place], [place], [place], [place]) Address [address] [place] [address] Care Team Providers Care Gun Stock Maker Name Role Phone Unavailable Primary Care [...] Description 12/09/2024 3:30 PM EDT Clinical Support [facility] [place] [address] [place] [address] 12/11/2024 2:40 PM EDT Office Visit [facility] [place] [address] [place] [address] Jerry Monroe Jr., MD [address] [place] [phone] 12/13/2024 3:30 PM EDT Clinical Support [facility] 1 [place] [address] 12/16/2024 3:30 PM EDT Clinical Support [facility] 1 [place] [address] 12/18/2024 3:00 PM EDT Office Visit [facility] [place] [address] [place] [address] Jerry Monroe Jr., MD [address] [place] [address] 12/20/2024 3:30 PM EDT Clinical Support [facility] 1 [place] [address] documented as of this encounter Visit Diagnoses Not on filedocumented in this encounter
--- OUTSIDE RECORDS SUMMARY | 2024-12-07 08:21 | XMS_ITS | Encounter Summary ---
Author Organization [facility] Address [address] [place] [address] Care Team Providers Care Configuration Analyst Name Role Phone Asad Victor MD Primary Care Provider + [phone] Encounter Details Date Type Department Care Team [...] drink first t dino in the morning (EYE-TANK BUILDER HELPER) to steady your nerves or to [...] 12/13/2024 2:00 PM EDT Office Visit [facility] [address] [facility] [place] [address] Oscar Appiah MD [address] [facility] [address] [place] [address] 12/19/2024 7:30 AM EDT Appointment [facility] Vascular Lab [address] 5th Floor [address] [place] [address] 12/19/2024 8:00 AM EDT Appointment [facility] Vascular Lab [address] 5th Floor [address] [place] [address] 12/19/2024 9:00 AM EDT Office Visit [facility] [address] 5th Floor [address] [place] [address] Nathaly Nowak MD [address] [place] [address] documented as of this encounter Goals Goal [...] documented as of this encounter Care Teams Configuration Analyst Relationship Specialty Start Date End Date Asad Victor MD [address] [place] [address] PCP - General 10/07/22 documented as of this encounter
--- OUTSIDE RECORDS SUMMARY | 2024-12-07 08:24 | XMS_ITS | Encounter Summary ---
Author Organization [employer] ([place], [place], [place], [place]) Address [address] [place] [address] Care Team Providers Care Spun Paste Machine Operator Name Role Phone Unavailable Primary [...] Description 12/09/2024 3:30 PM EDT Clinical Support [facility] [place] [address] [place] [address] 12/11/2024 2:40 PM EDT Office Visit [facility] [place] [address] [place] [address] Jerry Monroe Jr., MD [address] [place] [phone] 12/13/2024 3:30 PM EDT Clinical Support [facility] 1 [place] [address] 12/16/2024 3:30 PM EDT Clinical Support [facility] 1 [place] [address] 12/18/2024 3:00 PM EDT Office Visit [facility] [place] [address] [place] [address] Jerry Monroe Jr., MD [address] [place] [address] 12/20/2024 3:30 PM EDT Clinical Support [facility] [address] [place] [address] documented as of this encounter Visit Diagnoses Not on filedocumented in this encounter
[2024-12-07 08:25] VITALS: BP 148/54; PULSE 70; RESP 18; TEMP 36.6; O2SAT 97
--- OUTSIDE RECORDS SUMMARY | 2024-12-07 08:29 | XMS_ITS | Encounter Summary ---
Author Organization [facility] Address [address] [place] [address] Care Team Providers Care Content Administrator Name Role Phone Asad Victor MD Primary Care Provider + [phone] Encounter Details Date Type Department Care Team [...] drink first t dino in the morning (EYE-MAPLE SYRUP MAKER) to steady your nerves or to [...] Office Visit [facility] [address] [facility] [place] [address] Oscar Appiah MD [address] [facility] [address] [place] [address] 12/19/2024 7:[address] [facility] Vascular Lab [address] 5th Floor [address] [place] [address] 12/19/2024 8:[address] [facility] Vascular Lab [address] 5th Floor [address] [place] [address] 12/19/2024 9:00 AM EDT Office Visit [facility] Comprehensive [facility] Clinic [address] 5th Floor [address] [place] [address] Nathaly Nowak MD [address] [place] [address] documented as of this encounter Goals Goal [...] documented as of this encounter Care Teams Content Administrator Relationship Specialty Start Date End Date Asad Victor MD [address] [place] [address] PCP - General 10/07/22 documented as of this encounter
--- OUTSIDE RECORDS SUMMARY | 2024-12-07 08:29 | XMS_ITS | Encounter Summary ---
Author Organization Healthcare Address [address] [id number] Care Team Providers Care Health Advocate Name Role Phone Asad Victor MD Primary Care Provider + [phone] Reason for Visit * Reason Onset Date Comments [facility] Clinical Concern/Question 11/15/2024 Encounter Details Date Type Department Care Team (Late st Contact Info) Description 11/15/2024 Telephone [facility] [address] [facility] 5th Floor [address] [place] [address] Nathaly Nowak MD [address] [facility] [address] [place] [address] [facility] Clinical Concern/Question Social History [...] drink first t dino in the morning (EYE-PAINT ROLLER WINDER) to steady your nerves or to get [...] has been receiving his wound care through [facility] in [place]. Records requested from there. Post-op appointment request [...] with info. Thank you Best contact number: [phone] (mobile) Optimal time of day to reach [...] Description 12/13/2024 2:00 PM EDT Office Visit [facility] [address] [place] [address] Oscar Appiah MD [address] [facility] 100 [place] [address] 12/19/2024 7:30 AM EDT Appointment [facility] Vascular Lab [address] 5th [address] [place] [address] 12/19/2024 8:00 AM EDT Appointment [facility] Vascular Lab [address] 5th Floor [address] [place] [address] 12/19/2024 9:00 AM EDT Office Visit [facility] Clinic [address] [place] [address] Nathaly Nowak MD [address] [facility] [address] [place] [address] documented as of this encounter Goals Goal [...] documented as of this encounter Care Teams Health Advocate Relationship Specialty Start Date End Date Asad Victor MD [address] [place] [address] PCP - General 10/07/22 documented as of this encounter
--- OUTSIDE RECORDS SUMMARY | 2024-12-07 08:29 | XMS_ITS | Encounter Summary ---
Author Organization [employer] ([place], [place], [place]) Address [address] [place] [address] Care Team Providers Care Heavy Media Operator Name Role Phone Unavailable Primary Care [...] Description 12/09/2024 3:30 PM EDT Clinical Support [facility] [place] [address] [place] [address] 12/11/2024 2:40 PM EDT Office Visit [facility] [place] 1 [place] [address] Jerry Monroe Jr., MD [address] [place] [id number] 12/13/2024 3:30 PM EDT Clinical Support [facility] 1 [place] [address] 12/16/2024 3:30 PM EDT Clinical Support [facility] 1 [place] [address] 12/18/2024 3:00 PM EDT Office Visit [facility] [place] [address] [place] [address] Jerry Monroe Jr., MD [address] [place] [address] 12/20/2024 3:30 PM EDT Clinical Support [facility] 1 [place] [address] documented as of this encounter Visit Diagnoses Not on filedocumented in this encounter
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
[2024-12-07] MEDS: ERTAPENEM SODIUM 1 GM in 0.9 % SODIUM CHLORIDE 50 ML IV (08:30)
--- OUTSIDE RECORDS SUMMARY | 2024-12-07 08:30 | XMS_ITS | Encounter Summary ---
Author Organization Healthcare Address [address] [id number] Care Team Providers Care Broker In Charge Name Role Phone Asad Victor MD Primary Care Provider + [phone] Encounter Details Date Type Department Care Team (Late st Contact Info) Description 10/22/2024 Telephone Vascular Surgery [address] [place] [address] Alison Beltrán, CHAINSTITCH BINDER, DNP [address] [facility] [address] [place] [address] Social History Tobacco Use Types Packs/Day Years [...] drink first t dino in the morning (EYE-BRICK AND BLOCKER AID LABOR) to steady your nerves or to get [...] Notes * Telephone Encounter - Alison Beltrán, CHAINSTITCH BINDER, DNP - 10/22/2024 11:39 AM EDT Returned patient call. Patient s/p left common/superficial/profunda femoral thromboendarterectomy with bovine patch repair and left external iliac artery/RAIL CAR WELDER stent with Dr Gautam on 10/17/24. Patient [...] EDT Office Visit [facility] [address] [place] [address] Oscar Appiah MD [address] [facility] [address] [place] [address] 12/19/2024 7:30 AM EDT Appointment [facility] [address] [place] [address] 12/19/2024 8:00 AM EDT Appointment [facility] [address] [place] [address] 12/19/2024 9:00 AM EDT [facility] [address] 5th Floor Wing [address], [address] [place] [address] Nathaly Nowak MD [address] [facility] [address] [place] [address] documented as of this encounter [...] documented as of this encounter Care Teams Broker In Charge Relationship Specialty Start Date End Date Asad Victor MD [address] [place] [address] PCP - General 10/07/22 documented as of this encounter
--- OUTSIDE RECORDS SUMMARY | 2024-12-07 08:31 | XMS_ITS | Encounter Summary ---
Author Organization Healthcare Address [address] [place] [address] Care Team Providers Care Traffic Coordinator Name Role Phone Asad Victor MD Primary Care Provider + [phone] Encounter Details Date Type Department Care Team (Late st Contact Info) Description 10/17/2024 Orders Only External Location [address] [place] [address] Provider, External Social History Tobacco Use Types [...] any time in the past 12 m [facility], were you homeless or [...] drink first t dnio in the morning (EYE-VISITOR SERVICE ASSISTANT) to steady your nerves or to get rid of a hangover? 0 10/18/2021 CAGE Questionnaire Score 0 022 Utilities Answer Date Recorded In the past 12 months has th e [employer], gas, oil, or water [employer] threatened to shut off services in your [...] Office Visit [facility] [address] [facility] [place] [address] Oscar Appiah MD [address] [facility] [address] [place] [address] 12/19/2024 7:30 AM EDT Appointment [facility] Vascular Lab [address] 5[address] Wing [address], [address] [place] [address] 12/19/2024 8:00 AM EDT Appointment [facility] [address], [address] [place] [address] 12/19/2024 9:00 AM EDT Office Visit [facility] [address] 5[address], [address] [place] [address] Nathaly Nowak MD [address] [place] [address] documented as of this encounter Goals Goal [...] as of this encounter Care Teams Traffic Coordinator Relationship Specialty Start Date End Date Asad Victor MD [address] [place] [address] PCP - General 10/07/22 documented as of this encounter
--- OUTSIDE RECORDS SUMMARY | 2024-12-07 08:31 | XMS_ITS | Encounter Summary ---
Author Organization Healthcare Address [address] [place] [address] Care Team Providers Care Mechanical Engineering Draftsperson Name Role Phone Asad Victor MD Primary Care Provider + [phone] Encounter Details Date Type Department Care Team (Late st Contact Info) Description 11/27/2024 Orders Only [address] [address] Vaishali Kraus MD [address] [place] [address] [address] [place] [address] Therapeutic drug monitoring (Primary Dx) [...] drink first t dino in the morning (EYE-BUILDER BEAM) to steady your nerves or to get [...] EDT Office Visit [facility] [address] [facility] [place] [address] Oscar Appiah MD [address] [facility] [address] [place] [address] 12/19/2024 7:30 AM EDT Appointment [facility] Lab [address] 5th [address] [place] [address] 12/19/2024 8:00 AM EDT Appointment [facility] [address] [place] [address] 12/19/2024 9:00 AM EDT Office Visit [facility] [address] 5[address] [place] [address] Nathaly Nowak MD [address] [place] [address] Scheduled Orders Name Type Priority [...] documented as of this encounter Care Teams Mechanical Engineering Draftsperson Relationship Specialty Start Date End Date Asad Victor MD [address] [place] [address] PCP - General 10/07/22 documented as of this encounter
--- OUTSIDE RECORDS SUMMARY | 2024-12-07 08:31 | XMS_ITS | Encounter Summary ---
Author Organization [facility] Address [address] [place] [address] Care Team Providers Care Speedometer Mechanic Name Role Phone Asad Victor MD Primary Care Provider + [phone] Encounter Details Date Type Department Care Team [...] drink first t dino in the morning (EYE-WELDING SPECIALIST) to steady your nerves or to [...] Description 12/13/2024 2:00 PM EDT Office Visit [facility] [address] [place] [address] Oscar Appiah MD [address] [address] 12/19/2024 7:30 AM EDT Appointment [facility] Lab [address] 5th [address] [place] [address] 12/19/2024 8:00 AM EDT Appointment [facility] Lab [address] [facility] 5th Floor Wing [address], [address] [place] [address] 12/19/2024 9:00 AM EDT Office Visit [facility] [address] 5th [address] [place] [address] Nathaly Nowak MD [address] [facility] [address] [place] [address] documented as of this encounter [...] documented as of this encounter Care Teams Speedometer Mechanic Relationship Specialty Start Date End Date Asad Victor MD [address] [place], [place] [id number] PCP - General 10/07/22 documented as of this encounter
--- OUTSIDE RECORDS SUMMARY | 2024-12-07 08:32 | XMS_ITS | Clinical Summary ---
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); Localized tissue (HCC); Other specified local infections of the skin and subcutaneous tissue; Diabetes mellitus with skin ulcer (HCC) 12/04/2024 Travel 12/02/2024 2:15 PM EDT Clinical Support [facility] 1 [place] [address] Jerry Monroe Jr., MD 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) 12/02/2024 Travel 11/29/2024 4:00 PM EDT Clinical Support [facility] 1 [place] [address] Jerry Monroe Jr., MD 11/27/2024 2:20 PM EDT Office Visit [facility] 1 [place] [address] Jerry Monroe Jr., MD 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); Localized tissue (HCC); Other specified local infections of the skin and subcutaneous tissue; Diabetes mellitus with skin ulcer (HCC) 11/27/2024 Travel 11/22/2024 4:15 PM EDT Clinical Support [facility] 1 [place] [address] Jerry Monroe Jr., MD 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) 11/20/2024 2:15 PM EDT Clinical Support [facility] 1 [place] [address] Jerry Monroe Jr., MD 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) 11/20/2024 Travel 11/18/2024 1:10 PM EDT Office Visit [facility] 1 [place] [address] Jerry Monroe Jr., MD Non-pressure chronic ulcer [...] [facility] 1 [place] [address] 12/11/2024 2:40 PM EDT Office Visit [facility] 1 [place] [address] Jerry Monroe Jr., MD [address] [place] [address] 12/13/2024 3:30 PM EDT Clinical Support [facility] [place] [address] [place] [address] 12/16/2024 3:30 PM EDT Clinical Support [facility] 1 [place] [address] 12/18/2024 3:00 PM EDT Office Visit [facility] 1 [place] [address] Jerry Monroe Jr., MD [address] [place] [address] 12/20/2024 3:30 PM EDT Clinical Support [facility] 1 [place] [address] Health Maintenance Due Date Last Done Comments [...] Hemoglobin A1C 11/18/2024 COVID-19 VACCINE ( season) 11/25/20241, 07/31/2020 Influenza Vaccine (#1) 2024 02/06/2021 Tobacco Cessation Counseling and Screening (12+) 12/04/2025 12/04/2024 Procedures Procedure Name Priority Date/Time Associated Diagnosis Comments MS DEBRIDEMENT MUSCLE &/FASCIA EA ADDL 20 SQ CM Routine 12/04/2024 1:40 PM EDT 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) Localized tissue (HCC) Other specified local infections of the skin and subcutaneous tissue MS DEBRIDEMENT MUSCLE &/FASCIA 1ST 20 SQ CM/< Routine 12/04/2024 1:40 PM EDT 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) Localized tissue (HCC) Other specified local infections of the skin and subcutaneous tissue MS DEBRIDEMENT MUSCLE &/FASCIA EA ADDL 20 SQ CM Routine 12/04/2024 1:40 PM EDT 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) Localized tissue (HCC) Other specified local infections of the skin and subcutaneous tissue MS DEBRIDEMENT MUSCLE &/FASCIA 1ST 20 SQ CM/< Routine 12/04/2024 1:40 PM EDT 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) Localized tissue (HCC) Other specified local infections of the skin and subcutaneous tissue MS DEBRIDEMENT MUSCLE &/FASCIA EA ADDL 20 SQ CM Routine 11/27/2024 2:20 PM EDT 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) Localized tissue (HCC) Other specified local infections of the skin and subcutaneous tissue MS DEBRIDEMENT MUSCLE &/FASCIA EA ADDL 20 SQ CM Routine 11/27/2024 2:20 PM EDT 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) Localized tissue (HCC) Other specified local infections of the skin and subcutaneous tissue MS DEBRIDEMENT MUSCLE &/FASCIA 1ST 20 SQ CM/< Routine 11/27/2024 2:20 PM EDT 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) Localized tissue (HCC) Other specified local infections of the skin and subcutaneous tissue MS DEBRIDEMENT MUSCLE &/FASCIA EA ADDL 20 SQ CM Routine 11/27/2024 2:20 PM EDT 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) Localized tissue (HCC) Other specified local infections of the skin and subcutaneous tissue MS DEBRIDEMENT MUSCLE &/FASCIA EA ADDL 20 SQ CM Routine 11/27/2024 2:20 PM EDT 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) Localized tissue (HCC) Other specified local infections of the skin and subcutaneous tissue MS DEBRIDEMENT MUSCLE &/FASCIA 1ST 20 SQ CM/< Routine 11/27/2024 2:20 PM EDT 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) Localized tissue (HCC) Other specified local infections of the skin and subcutaneous tissue WOUND TREATMENT Routine 11/22/2024 5:14 PM EDT 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) MS DEBRIDEMENT MUSCLE &/FASCIA EA ADDL 20 SQ CM Routine 11/18/2024 1:10 PM EDT 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) Localized tissue (HCC) Other specified local infections of the skin and subcutaneous tissue MS DEBRIDEMENT MUSCLE &/FASCIA EA ADDL 20 SQ CM Routine 11/18/2024 1:10 PM EDT 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) Localized tissue (HCC) Other specified local infections of the skin and subcutaneous tissue MS DEBRIDEMENT MUSCLE &/FASCIA 1ST 20 SQ CM/< Routine 11/18/2024 1:10 PM EDT 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) Localized tissue (HCC) Other specified local infections of the skin and subcutaneous tissue MS DEBRIDEMENT MUSCLE &/FASCIA EA ADDL 20 SQ CM Routine 11/18/2024 1:10 PM EDT 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) Localized tissue (HCC) Other specified local infections of the skin and subcutaneous tissue MS DEBRIDEMENT MUSCLE &/FASCIA EA ADDL 20 SQ CM Routine 11/18/2024 1:10 PM EDT 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 Debridement [...] to treatment: procedure was tolerated well Jerry Monore Jr., MD PROCEDURE/MINOR SURGICAL ORDERABLES Final Result * MS DEBRIDEMENT MUSCLE &/FASCIA 1ST 20 SQ CM/<, MS DEBRIDEMENT MUSCLE &/FASCIA EA ADDL 20SQ CM [...] provider verified the correct patient, procedure, equipment, vp software support, and site/side marked as required. Debridement [...] MD PROCEDURE/MINOR SURGICAL ORDERABLES Final Result * MS DEBRIDEMENT MUSCLE &/FASCIA 1ST 20 SQ CM/<, MS DEBRIDEMENT MUSCLE &/FASCIA EA ADDL 20SQ CM, MS DEBRIDEMENT MUSCLE &/FASCIA EA ADDL 20 SQ [...] provider verified the correct patient, procedure, equipment, vp software support, and site/side marked as required. Debridement [...] MD PROCEDURE/MINOR SURGICAL ORDERABLES Final Result * MS DEBRIDEMENT MUSCLE &/FASCIA 1ST 20 SQ CM/<, MS DEBRIDEMENT MUSCLE &/FASCIA EA ADDL 20SQ CM, MS DEBRIDEMENT MUSCLE &/FASCIA EA ADDL 20 SQ [...] provider verified the correct patient, procedure, equipment, vp software support, and site/side marked as required. Debridement [...] NURSING PATHWAYS ORDERABL ES Final Result * MS DEBRIDEMENT MUSCLE &/FASCIA 1ST 20 SQ CM/<, MS DEBRIDEMENT MUSCLE &/FASCIA EA ADDL 20SQ CM, MS DEBRIDEMENT MUSCLE &/FASCIA EA ADDL 20 SQ [...] provider verified the correct patient, procedure, equipment, vp software support, and site/side marked as required. Debridement [...] MD PROCEDURE/MINOR SURGICAL ORDERABLES Final Result * MS DEBRIDEMENT MUSCLE &/FASCIA 1ST 20 SQ CM/<, MS DEBRIDEMENT MUSCLE &/FASCIA EA ADDL 20SQ CM, MS DEBRIDEMENT MUSCLE &/FASCIA EA ADDL 20 SQ [...] provider verified the correct patient, procedure, equipment, vp software support, and site/side marked as required. Debridement [...] Final Result from Last 3 Months Insurance [facility] MCR ADV DUAL COMPLETE MEDICAID OF [place]
--- OUTSIDE RECORDS SUMMARY | 2024-12-07 08:33 | XMS_ITS | Encounter Summary ---
Author Organization [employer] ([place], [place], [place], [place]) Address [address] [place] [address] Care Team Providers Care Nitric Acid Plant Operator Name Role Phone Unavailable Primary Care [...] Description 12/09/2024 3:30 PM EDT Clinical Support [facility] [place] [address] [place] [address] 12/11/2024 2:40 PM EDT Office Visit [facility] [place] [address] [place] [address] Jerry Monroe Jr., MD [address] [place] [id number] 12/13/2024 3:30 PM EDT Clinical Support [facility] 1 [place] [address] 12/16/2024 3:30 PM EDT Clinical Support [facility] 1 [place] [address] 12/18/2024 3:00 PM EDT Office Visit [facility] [place] [address] [place] [address] Jerry Monroe Jr., MD [address] [place] [address] 12/20/2024 3:30 PM EDT Clinical Support [facility] 1 [place] [address] documented as of this encounter Visit Diagnoses Not on filedocumented in this encounter
--- OUTSIDE RECORDS SUMMARY | 2024-12-07 08:34 | XMS_ITS | Encounter Summary ---
Author Organization [facility] Address [address] [place] [address] Care Team Providers Care Rodeo Rider Name Role Phone Asad Victor MD Primary Care Provider + [phone] Encounter Details Date Type Department Care Team [...] drink first t dino in the morning (EYE-SAFETY SPECIALIST) to steady your nerves or to [...] Office Visit [facility] [address] [facility] [place] [address] Oscar Appiah MD [address] [facility] [address] [place] [address] 12/19/2024 7:30 AM EDT Appointment [facility] Lab [address] [facility] 5th Floor Wing [address], [address] [place] [address] 12/19/2024 8:00 AM EDT Appointment [facility] [address] [facility] 5th Floor Wing D, [address] [place] [address] 12/19/2024 9:00 AM EDT Office Visit [facility] [address] [facility] 5th Floor Wing [address] [place] [address] Nathaly Nowak MD [address] [place] [address] documented as of this encounter [...] documented as of this encounter Care Teams Rodeo Rider Relationship Specialty Start Date End Date Asad Victor MD [address] [place] [address] BISI [place] [address] PCP - General 10/07/22 documented as of this encounter
--- OUTSIDE RECORDS SUMMARY | 2024-12-07 08:34 | XMS_ITS | Encounter Summary ---
Author Organization Healthcare Address [address] [place] [address] Care Team Providers Care Ophthalmic Aide Name Role Phone Asad Victor MD Primary Care Provider + [phone] Encounter Details Date Type Department Care Team (Late st Contact Info) Description 11/05/2024 Orders Only External Location [address] [place] [address] Provider, External Social History Tobacco Use Types [...] first t dino in the morning (EYE-CLINICAL ESTHETICIAN) to steady your nerves or to get rid of a hangover? 0 10/18/2021 CAGE Questionnaire Score 0 022 Utilities Answer Date Recorded In the past 12 months has th e [employer], gas, oil, or water company threatened to [...] Description 12/13/2024 2:00 PM EDT Office Visit [facility] [address] [facility] [place] [address] Oscar Appiah MD [address] [facility] [address] [place] [address] 12/19/2024 7:30 AM EDT Appointment [facility] [address] 5th Floor [address] [place] [address] 12/19/2024 8:00 AM EDT Appointment [facility] [address] 5th Floor [address] [place] [address] 12/19/2024 9:00 AM EDT Office Visit [facility] [address] 5th Floor [address] [place] [address] Nathaly Nowak MD [address] [place] [address] documented as of this encounter Goals Goal [...] documented as of this encounter Care Teams Ophthalmic Aide Relationship Specialty Start Date End Date Asad Victor MD [address] [place] [address] PCP - General 10/07/22 documented as of this encounter
--- OUTSIDE RECORDS SUMMARY | 2024-12-07 08:35 | XMS_ITS | Encounter Summary ---
Author Organization Healthcare Address [address] [place] [address] Care Team Providers Care Photoflash Powder Mixer Name Role Phone Asad Victor MD Primary Care Provider + [phone] Encounter Details Date Type Department Care Team (Late st Contact Info) Description 11/15/2024 Clinical Support [id number] [place] [address] Charly Orlando, PharmD [address] [place] [address] [address] [place] [address] Social History Tobacco Use Types [...] drink first t dino in the morning (EYE-WORM FARMER) to steady your nerves or to get rid of a hangover? 0 10/18/2021 CAGE Questionnaire Score 0 022 Utilities Answer Date Recorded In the past 12 months has th e [employer], gas, oil, or water company threatened to [...] Description 12/13/2024 2:00 PM EDT Office Visit [facility] [address] [facility] [place] [address] Oscar Appiah MD [address] [facility] [address] [place] [address] 12/19/2024 7:30 AM EDT Appointment [facility] Lab [address] 5th Floor [address] [place] [address] 12/19/2024 8:00 AM EDT Appointment [facility] [address] [facility] 5th Floor [address] [place] [address] 12/19/2024 9:00 AM EDT Office Visit [facility] [address] [facility] 5th Floor [address] [place] [address] Nathaly Nowak MD [address] [place] [address] documented as of this encounter [...] documented as of this encounter Care Teams Photoflash Powder Mixer Relationship Specialty Start Date End Date Asad Victor MD [address] [place] [address] PCP - General 10/07/22 documented as of this encounter
--- OUTSIDE RECORDS SUMMARY | 2024-12-07 08:36 | XMS_ITS | Encounter Summary ---
Author Organization [employer] ([place], [place], [place], [place]) Address [address] [place] [address] Care Team Providers Care Oracle Database Consultant Name Role Phone Unavailable Primary Care [...] Description 12/09/2024 3:30 PM EDT Clinical Support [facility] [place] 1 [place] [address] 12/11/2024 2:40 PM EDT Office Visit [facility] [place] [address] [place] [address] Jerry Monroe Jr., MD [address] [place] [id number] 12/13/2024 3:30 PM EDT Clinical Support [facility] 1 [place] [address] 12/16/2024 3:30 PM EDT Clinical Support [facility] 1 [place] [address] 12/18/2024 3:00 PM EDT Office Visit [facility] [place] [address] [place] [address] Jerry Monroe Jr., MD [address] [place] [address] 12/20/2024 3:30 PM EDT Clinical Support [facility] 1 [place] [address] documented as of this encounter Visit Diagnoses Not on filedocumented in this encounter
[2024-12-07] MEDS: MICAFUNGIN SODIUM IV (08:57)
[2024-12-07] MEDS: SODIUM CHLORIDE 0.9% IV (08:57)
== END 2024-12-07 10:15 | disposition home or self-care (01) ==
LOC: INF 08:09
PROVIDERS: PCP Family Medicine
DX: T14.8XXA Other injury of unspecified body region, initial encounter (principal); L08.9 Local infection of the skin and subcutaneous tissue, unspecified; X58.XXXA Exposure to other specified factors, initial encounter; Y93.9 Activity, unspecified; Y92.9 Unspecified place or not applicable
CPT/HCPCS: 96365; 96367; J1335; J2248

== ENCOUNTER 2024-12-08 09:11 | Outpatient (CLI) | payer MEDICARE, OTHER, SELFPAY ==
--- OUTSIDE RECORDS SUMMARY | 2024-10-11 10:15 | XMS_ITS | Encounter Summary ---
Author Organization [facility] Address [address] [place] [address] Care Team Providers Care Patent Law Specialist Name Role Phone Asad Victor MD Primary Care Provider + [phone] Encounter Details Date Type Department Care Team (Latest Contact Info) Description 10/11/2024 10:15 AM EDT Pre-Admission Testing [facility]op [facility] [address] [place] [phone] Preop testing (Primary Dx) Anesthesia Record Procedure [...] Hand; Site Prep: Chlorhexidine ; Local Anesth: [place]; Technique: Anatomical landmarks; Inserted by: CHRISTIAN Acuna; [...] G; Orientation: Right; Location: Axillary; Inserted by: CABLE FERRYBOAT OPERATOR; Securement: Sutured; Patient Tolerance: Tolerated well; Removal [...] drink first t dino in the morning (EYE-PAPER SUPERVISOR) to steady your nerves or to get [...] note 09/25/24 (media) + CAD s/p multiple GA's and 3V CABG 02/2019, 2 stents prior to CABG Atrial Fibrillation with RVR s/p CABG + carotid artery disease s/p R CEA 2016 + 3rd degree AV block ACTIVE DIRECTORY ARCHITECT-P placed 08/2023 for Wenkeback with 11 sec pause + HLD + HTN - controlled + PAD 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 S/P intravascular lithotripsy of left common and external iliac artery with 2 continuous balloon mounted bare metal stents 09/12/24 on Xarelto and ASA + WILHELM occ, low energy for > year - had work-up recently in [place] (will get records) + peripheral edema LLE [...] ENDARTERECTOMY N/A 2017 Endarterectomy Carotid Artery from [facility] CORONARY ANGIOPLASTY Left Coronary Angiography With Concomitant Left Heart Catheterization from [facility] CORONARY ARTERY BYPASS GRAFT N/A 2018 3V ELBOW SURGERY Right OTHER SURGICAL HISTORY N/A Reported Prior Surgical / Procedural History from [facility] [5] No Known Allergies [6] Current Outpatient [...] card, photo ID, along with power of document review attorney, guardianship or advanced directives if applicable [...] Care Team (Late st Contact Info) Description 12/13/2024 2:00 PM EDT Office Visit [facility] [address] [facility] [place] [address] Oscar Appiah MD [address] [facility] [address] [place] [address] 12/19/2024 7:30 AM EDT Appointment [facility] [address] [place] [address] 12/19/2024 8:00 AM EDT Appointment [facility] [address] [place] [address] 12/19/2024 9:00 AM EDT Office Visit [facility] [address] [place] [address] Nathaly Nowak MD [address] [place] [phone] documented as of this encounter Goals Goal [...] Modality Other Narrative 10/17/2024 9:50 AM EDT [facility]: Pre-operative CIED Report Assessment and Sara-Procedural Reommendations: Name: Mono Bobby Date: 10/17/2024 : 1960 Age: 64 y.o. Patient has a Computer Laboratory Technician: Berger ACTIVE DIRECTORY ARCHITECT-PM Remaining battery longevity adequate. Lead integrity test [...] recommendations. Supporting reports can be found in [employer] media file. us Emelina DOSHI CV IMPLANTABLE CARDIAC [...] documented as of this encounter Care Teams Patent Law Specialist Relationship Specialty Start Date End Date Asad Victor MD [address] [place] [address] PCP - General 10/07/22 documented as of this encounter
--- OUTSIDE RECORDS SUMMARY | 2024-10-16 14:45 | XMS_ITS | Encounter Summary ---
Author Organization Healthcare Address [address] [place] [address] Care Team Providers Care Rail Gang Supervisor Name Role Phone Asad Victor MD Primary Care Provider + [phone] Encounter Details Date Type Department Care Team (Latest Contact Info) Description 10/16/2024 2:45 PM EDT - 10/16/2024 11:59 PM EDT Hospital Encounter Cardiac Imaging [address] [place] [address] Discharge Disposition: Home or Self Care Social [...] drink first t dino in the morning (EYE-MANUFACTURING LAB TECHNICIAN) to steady your nerves or to [...] Description 12/13/2024 2:00 PM EDT Office Visit [facility] [address] [place] [address] Oscar Appiah MD [facility] [address] [place] [address] 12/19/2024 7:30 AM EDT Appointment [facility] [address] [place] [address] 12/19/2024 8:00 AM EDT Appointment [facility] [address] [place] [address] 12/19/2024 9:00 AM EDT Office Visit [facility] [address] [place] [address] Nathaly Nowak MD [address] [facility] [address] [place] [address] documented as of this encounter Goals Goal [...] Modality Other Narrative 10/17/2024 9:50 AM EDT [facility]: Pre-operative CIED Report Assessment and Sara-Procedural Reommendations: Name: Mono Bobby Date: 10/17/2024 : 1960 Age: 64 y.o. Patient has a Thrill Performer: Berger BLENDING MACHINE FEEDER-PM Remaining battery longevity adequate. Lead integrity test [...] recommendations. Supporting reports can be found in [employer] media file. 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
--- OUTSIDE RECORDS SUMMARY | 2024-10-17 06:21 | XMS_ITS | Encounter Summary ---
Author Organization [facility] Address [address] [id number] Care Team Providers Care Legal Researcher Name Role Phone Asad Victor MD Primary Care Provider [phone] Reason for Referral * Imaging (Routine) - Authorized Specialty Diagnoses / Procedures Referred By Susan t Referred To Contact Cardiology Diagnoses Critical limb ischemia of left lower extremity Pseudoaneurysm of left femoral artery (CMS/HCC) Procedures VAS US Arterial Duplex Lower Extremity Unilateral Left Terrell Gautam MD [address] [address] Phone: tel: fax: Referral ID Status Reason Start Date Expiration Date Visits Requested Visits Authorized [id number] Authorized Perform Procedure 10/19/2024 04/20/2026 1 1 * Imaging (Routine) - Authorized Specialty Diagnoses / Procedures Referred By Contac t Referred To Contact Cardiology Diagnoses Critical limb ischemia of left lower extremity Pseudoaneurysm of left femoral artery (CMS/HCC) Procedures VAS Ankle Brachial Index - Segmental Terrell Gautam MD [id number] [place] [address] Phone: tel: fax: Referral ID Status Reason Start Date Expiration Date Visits Requested Visits Authorized [id number] Authorized Perform Procedure 10/19/2024 04/20/2026 1 1 * Consultation (Routine) - Authorized Specialty Diagnoses / Procedures Referred By Contact Referred To Contact Vascular Surgery / [facility] Diagnoses Critical limb ischemia of left lower extremity Pseudoaneurysm of left femoral artery (CMS/HCC) Terrell Gautam MD [address] [place] [address] Phone: tel:[phone] fax:[phone] [facility] [address] [place] [address] 5th Floor [address] [place] [address] Phone: tel: fax: Referral ID Status Reason Start Date Expiration Date Visits Requested Visits Authorized [id number] Authorized Specialty Services Required 10/19/2024 04/20/2026 [address] Gautam, with SIL, arterial duplex Reason for Visit * Auth/Cert (Routine) Specialty Diagnoses / Procedures Referred By Susan t Referred To Contact Diagnoses Critical limb ischemia of left lower extremity Critical limb ischemia of left lower extremity [I70.222] Procedures MD VEIN BYPASS GRAFT,FEM-POP CREATION, BYPASS, ARTERIAL, FEMORAL TO POPLITEAL Terrell aGutam MD [address] [place] [address] Phone: tel: fax: [facility] A OPERATING ROOM [address] [place] [address] Phone: tel: Referral ID Status Reason Start Date Expiration Date Visits Re quested Visits Authorized [id number] 1 1 Encounter Details Date Type Department Care Team (Latest Contact Info) Description 10/17/2024 6:21 AM EDT - 10/19/2024 12:39 PM EDT Hospital Encounter [facility] H Inpatient [address] [place] [id number] Terrell Gautam MD [address] [place] [address] Pseudoaneurysm of left femoral artery (CMS/HCC) [...] any time in the past 12 m [facility], were you homeless or living in a nursing home (including now)? No 10/18/2024 CAGE ASSESSMENT [...] first t dino in the morning (EYE-CABLE TOWER OPERATOR) to steady your nerves or to get rid of a hangover? 0 10/18/2021 CAGE Questionnaire Score 0 022 Utilities Answer Date Recorded In the past 12 months has th [employer], gas, oil, or water [email or web address] threatened to shut off services in your [...] provided Taken 10/17/20242107 by Jourdan Grimes II customer relations specialist Review/Management: medications reviewed Problem: Skin Injury [...] Ongoing, Progressing Intervention: Promote Activity and Functional Dunlevy Flowsheets (Taken 10/19/2024 1048) Self-Care Promotion: BADL personal objects within reach meal set-up provided * Yuni Ramries - Keyla Chow - 10/19/2024 11:45 AM EDT Images from the original note were not included. [id number] After Peripheral Artery Bypass Surgery: In the [...] home. Last Reviewed Date: 2023 00:00:00 ?? [id number] [employer]. All rights reserved. This information is not intended as a substitute for professional medical care. Always follow your healthcare professional's instructions. * Progress Notes - Emelina Friend - 10/19/2024 11:44 AM EDT Case Management Adult Progress Note Bev Bobby 64 y.o. male CSN: [id number] Admission: 10/17/2024 6:21 AM Primary Problem: Critical [...] if any other needs arise. Emelina Friend BIOINFORMATICS DEVELOPER, BRIDGE DESIGN ENGINEER Social Work Case Management * Yuni OviJOSE MANUEL Chow Keyla - 10/19/2024 11:44 AM EDT Images from the original note were not included. [id number] Peripheral Artery Disease (PAD) Peripheral artery disease [...] cause. Last Reviewed Date: 2024 00:00:00 ?? [id number] [employer]. All rights reserved. This information is not intended as a substitute for professional medical care. Always follow your healthcare professional's instructions. * Yuni DiorNAVYA - Keyla Chow - 10/19/2024 11:44 AM EDT Images from the original note were not included. [id number] Leg Artery Emergencies: Critical Limb Ischemia (CLI) [...] appointments. Last Reviewed Date: 2023 00:00:00 ?? [id number] [employer]. All rights reserved. This information is not intended as a substitute for professional medical care. Always follow your healthcare professional's instructions. * Discharge Summary - Dandy Baltazar MD - 10/19/2024 11:31 AM EDT Hospitalization Admit Date/Time: 10/17/2024 6:21 AM Admitting Attending: Terrell Gautam Discharge Date: 10/19/24 Discharge Attending Physician: Nirmal Cueto MD PCP name and Address: Asad Victor MD (Inactive) [address] [place] [address] / [facility] [address] Referring provider name and address: Timothy Marques PA [address] [place] [address] Chief Concern, Brief History of Present Illness, and Hospital Course Bev Bobby is an 64 y.o. 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 He [...] Your Medications These medications were sent to [facility] - [place], [place] - [address], [facility] [id number] acetaminophen 500 MG tablet clopidogrel 75 MG [...] of water. 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 He [...] provided Taken 10/17/20242107 by Jourdan Grimes II, customer relations specialist Review/Management: medications reviewed Problem: Skin Injury [...] Ongoing, Progressing Intervention: Promote Activity and Functional Dunlevy Flowsheets (Taken 10/19/2024 1048) Self-Care Promotion: BADL [...] evaluation. PARTICIPANTS IN CARE Visitors Present No Guest Relations Agent (if applicable) PRESENTATION Oxygen Oxygen Therapy: None [...] Level of Mobility Ambulatory- household only Mobility Dunlevy Independent gait with device (rollator) History of [...] numbness in rodney) BED MOBILITY Level of Dunlevy Physical/Non- physical Assist Adaptive Equipment Utilized Rolling/ Turning Scooting/ Bridging Modified independence (anteriorly to EOB) Bed rails Supine to Sit Modified Dunlevy (to the right) (HOB flat) Bed rails Sit to Supine Interventions HOB flat to simulate home environment TRANSFERS Level of Dunlevy Physical/Non- physical Assist Adaptive Equipment Utilized Sit [...] stable surfaces during transitions. AMBULATION Level of Dunlevy Distance Adaptive Equipment Utilized Ambulation Standby assist, [...] Posture: Forward head, Rounded shoulders Level of Dunlevy Balance Support Interventions Static Sit Independent Right [...] 3-5 steps with a railing?: A little [facility] 6-Clicks Mobility Assessment Total : 22 [...] evaluation/session. Participants in Care Family/Caregiver Present: No Guest Relations Agent: Not Applicable Presentation Oxygen Therapy: None (Room [...] Level of Mobility: Ambulatory- household only Mobility Dunlevy: Independent gait with device (rollator) History of [...] Mobility Bed Mobility Exam: Scooting/Bridging Level of Dunlevy: Modified independence (anteriorly to EOB) Assistive Device: Bed rails Bed Mobility Exam: Supine to Sit Level of Dunlevy: Modified Dunlevy (to the right) Physical/Nonphysical Assist: (HOB flat) Assistive Device: Bed rails Transfers Transfer Exam: Sit to stand Level of Dunlevy: Stand-by assist Physical/Nonphysical Assist: Supervision, Verbal Cues, Minimal cues Assistive Device: Walker, rolling Transfer Exam: Stand to Sit Level of Dunlevy: Stand-by assist Physical/Nonphysical Assist: Supervision, Verbal Cues, [...] regarding toileting at this time. Standardized Assessments [facility] 6-Click Daily Activities Help from Other: Don/Doff Regular Lower Body Clothings: None Help From Other: Bathing: Little Help From Other: Toileting: None Help From Other: Don/Doff Upper Body Clothings: None Help From Other: Grooming: None Help From Other: Eating Meals: None [facility] 6 Click - Daily Activities Score: 23/24 [facility] Scoring Interpretation: Scores greater than 20.5 [...] Note Bev Bobby 64 y.o. male CSN: [id number] Admission: 10/17/2024 6:21 AM Primary Problem: Critical limb ischemia of left lower extremity Sampler Pickup reviewed chart and spoke with patient to complete this Initial Case Management Assessment. PCP: Asad Victor MD (Inactive) - Dr. Palomo Preferred pharmacy is [facility] Emergency Contact: Extended Emergency Contact Information Primary Emergency Contact: Patti Hill Relation: Sister Guest Relations Agent needed? No Insurance: Primary Visit Coverage Payer Plan Sponsor Code Group Number Group Name [facility] MEDICARE [facility] MEDICARE REPLACEMENT [id number] Primary Visit Coverage Subscriber Subscriber ID Subscriber Name Subscriber N Subscriber Address [id number] BEV BOBBY [id number] [place] [address] Secondary Visit Coverage Payer Plan Sponsor Code Group Number Group Name [facility] MED[facility] Secondary Visit Coverage Subscriber Subscriber ID Subscriber Name Subscriber N Subscriber Address [id number] BEV BOBBY [id number] [place] [address] Patient information: Primary Caregiver: Self Daily Living Activities: Functional Status: Independent Living Arrangements: Alone Type of Residence: Private residence, Single Level [address] [place] [address] Current DME: Equipment Currently Used at Home: walker, rollator Income Information: Income Source: Retired Income/Expense Information: Income meets expenses Current Resources Utilized: Food [place] Housing Circumstances-Z Codes: Housing Circumstances (select [...] Dialysis Services: None. Living Will/Advance Directive/Power of Telephone Switchboard Operator /Guardian: Denied. Additional Comments: Patient is not medically ready for discharge. SW will continue to follow. Mariia Macedo BRIDGE DESIGN ENGINEER * Care Plan - Emilia Alonso RN [...] from the original note were not included. [facility] Department of Surgery Division of Vascular Surgery Surgery Progress Note 10/18/24 eBv Bobby Subjective Subjective: HPI Bev Bobby is [...] Agree with above assessment and evaluation from resident/CREDIT RISK MANAGEMENT DIRECTOR. * Op Note - Terrell Gautam MD - 10/17/2024 8:52 AM EDT Operative Note Date: 10/17/24 Location: [facility] Name: Bev Bobby, : 1960, Diagnoses: Pre-op Diagnosis Critical limb ischemia of left lower extremity Common femoral artery pseudoaneurysm Post-op Diagnosis Critical limb ischemia of left lower extremity Common femoral artery pseudoaneurysm Procedure(s): Left common/superficial/profunda femoral thromboendarterectomy with bovine patch repair Left external iliac artery/GAS APPLIANCE INSTALLER stent Attending Surgeon(s): * Terrell Gautam - Primary Global Account Executive(s): * Luna Beckett MD - Resident - [...] Necessity Reasons Recent surgery contiguous with urinary tract/RECOVERY AUDITOR/colorectal 10/17/24 190 Output (mL) 50 mL 10/18/24 08 Implants Type Name Action Serial No. VASCUGUARD 8 X 8 - [id number] Implanted STENT ENDOPROSTHESIS VIABAHN 9FR [id number] - [id number] Implanted [id number] Specimen: Specimens ID Source Frozen? 1 Other [...] and distal control. We then proceeded with [id number]-[id number]-[id number] exposure of the popliteal artery. A medial [...] balloon dilated thestent with a 9 mm [place]. We closed the arteriotomy with a single [...] 10/17/2024 8:52 AM EDT Date: 10/17/24 Location: [facility] Name: Bev Perez Kanu, : 1960, Diagnoses: Pre-op Diagnosis Critical limb ischemia of left lower extremity Common femoral artery pseudoaneurysm Post-op Diagnosis Critical limb ischemia of left lower extremity Common femoral artery pseudoaneurysm Procedure(s): Left common/superficial/profunda femoral thromboendarterectomy with bovine patch repair Left external iliac artery/GAS APPLIANCE INSTALLER stent Attending Surgeon(s): * Terrell Gautam - Primary Global Account Executive(s): * Luna Beckett MD - Resident - Assisting * Dandy Baltazar MD - Fellow Anesthesia: General ASA: III Blood Administration: Blood Product Administration History None Estimated Blood Loss: 300 mL Drains: Urethral Catheter Temperature probe 16 Fr. (Active) Implants Type Name Action Serial No. VASCUGUARD 8 X 8 - [id number] Implanted STENT ENDOPROSTHESIS VIABAHN 9FR [id number] - [id number] Implanted [id number] Specimen: Specimens ID Source Frozen? 1 Other [...] issues. 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 He previouslyunderwent thrombin injection. He reports pain in his calves. He presents today for scheduled left lower extremity femoral to [id number] popliteal bypass. Planned likely use PTFE. He [...] 16. Results Review {Vanishing Link Review Results :[id number] I have reviewed the latest lab and imaging results. Assessment & Plan Critical limb ischemia of left lower extremity Proceed with scheduled surgery left lower extremity femoral to [id number]-[id number] popliteal artery bypass graft. Extensive discussion had [...] Description 12/13/2024 2:00 PM EDT Office Visit [facility] [address] [place] [address] Oscar Appiah MD [address] [facility] [address] [place] [address] 12/19/2024 7:30 AM EDT Appointment [facility] [address] [facility] 5th Floor [address] [place] [address] 12/19/2024 8:00 AM EDT Appointment [facility] [address] [place] [address] 12/19/2024 9:00 AM EDT Office Visit [facility] [address] [place] [address] Nathaly Nowak MD [address] [place] [address] Pending Results Name Type Priority [...] Comment 10/19/2024 11:42 AM EDT HEALTHCARE LAB Top Dyeing Machine Loader ID KamranJob 10/20/19 11:42 AM EDT [employer] LAB Device ID [id number] 10/19/2024 11:42 AM EDT [facility] Specimen Type POC Capillary 10/19/2024 11:42 AM EDT [facility] Blood Capillary blood specimen / Unknown 10/19/2024 11:40 AM EDT 10/19/2024 11:42 AM EDT us Terrell Gautam MD LAB POINT OF CARE TE ST DOCKED DEVICE UNSOLICITED RESULTS Final Result Performing Organization Address City/State/[facility] Co de Phone Number HEALTHCARE LAB [address] [place] [address] * (ABNORMAL) Protime-INR (10/19/2024 8:25 AM EDT) Prothrombin Time 17.5(H) 12.0 - 14.3 sec LAB COAGULATION METHOD 10/19/2024 9:25 AM EDT [facility] INR 1.4(H) 0.9 - 1.1 LAB COAGULATION METHOD 10/19/2024 9:25 AM EDT [facility] Blood Venous blood specimen / Unknown Venipuncture / Unknown 10/19/2024 8:25 AM EDT 10/19/2024 8:43 AM EDT Narrative [facility] - 10/19/2024 9:25 AM [...] BLOOD ORDERABLES Final Result Performing Organization Address City/[facility]/ZIP Co de Phone Number [facility] [address] [place] [address] * (ABNORMAL) Phosphorus (10/19/2024 8:25 AM EDT) Phosphorus, Plasma 2.2(L) 2.5 - 4.5 mg/dL 10/19/2024 9:12 AM EDT [facility] Blood Venous blood specimen / Unknown Venipuncture / Unknown 10/19/2024 8:25 AM EDT 10/19/2024 8:43 AM EDT Nirmal Cueto MD LAB BLOOD ORDERABLES Final Result Performing Organization Address City/[facility]/ZIP Co de Phone Number [facility] [address] [place] [address] * Magnesium (10/19/2024 8:25 AM EDT) Magnesium, Plasma 2.1 1.9 - 2.4 mg/dL 10/19/2024 9:12 AM EDT [facility] Blood Venous blood specimen / Unknown Venipuncture / Unknown 10/19/2024 8:25 AM EDT 10/19/2024 8:43 AM EDT Nirmal Cueto MD LAB BLOOD ORDERABLES Final Result Performing Organization Address City/[facility]/ZIP Co de Phone Number [facility] [address] [place] [address] * (ABNORMAL) Basic metabolic panel (10/19/2024 8:25 AM EDT) Glucose, Plasma 191(H) 74 - 99 mg/dL 10/19/2024 9:12 AM EDT [facility] BUN, Plasma 18 8 - 23 mg/dL 10/19/2024 9:12 AM EDT [facility] Creatinine, Plasma 0.76 0.70 - 1.20 mg/dL 10/19/2024 9:12 AM EDT [facility] BUN/Creatinine Ratio 24 10/19/2024 9:12 AM EDT [facility] Sodium, Plasma 135(L) 136 - 145 mmol/L 10/19/2024 9:12 AM EDT [facility] Potassium, Plasma 4.1 3.6 - 4.9 mmol/L 10/19/2024 9:12 AM EDT [facility] Chloride, Plasma 104 97 - 107 mmol/L 10/19/2024 9:12 AM EDT [facility] CO2, Plasma 22 22 - 29 mmol/L 10/19/2024 9:12 AM EDT [facility] Anion Gap 9 6 - 16 mmol/L 10/19/2024 9:12 AM EDT [facility] Total Calcium, Plasma 8.4(L) 8.9 - 10.2 mg/dL 10/19/2024 9:12 AM EDT [facility] eGFRcr 99.7 mL/min/1.7 3m*2 10/19/2024 9:12 AM EDT [facility] Comment:Reported eGFRcr in m L/min/1.73m2 is based the CKD-EPI 2020 equation that does not use a race coefficient. Blood Venous blood specimen / Unknown Venipuncture / Unknown 10/19/2024 8:25 AM EDT 10/19/2024 8:43 AM EDT us Nirmal Cueto MD LAB BLOOD ORDERABLES Final Result [facility] [address] [place] [address] * (ABNORMAL) CBC W/O Differential (10/19/2024 8:25 AM EDT) WBC Count 14.10(H) 3.70 - 10.30 10*3/uL LAB HEMATOLOGY METHOD 10/19/2024 8:52 AM EDT [facility] RBC Count 2.61(L) 4.60 - 6.10 10*6/uL LAB HEMATOLOGY METHOD 10/19/2024 8:52 AM EDT [facility] HGB 8.0(L) 13.7 - 17.5 g/dL LAB HEMATOLOGY METHOD 10/19/2024 8:52 AM EDT [facility] HCT 24.3(L) 40.0 - 51.0 % LAB HEMATOLOGY METHOD 10/19/2024 8:52 AM EDT [facility] Platelet Count 318 155 - 369 10*3/uL LAB HEMATOLOGY METHOD 10/19/2024 8:52 AM EDT [facility] MCV 93 79 - 98 fL LAB HEMATOLOGY METHOD 10/19/2024 8:52 AM EDT [facility] MCH 30.7 26.0 - 32.0 pg LAB HEMATOLOGY METHOD 10/19/2024 8:52 AM EDT [facility] MCHC 32.9 30.7 - 35.5 g/dL LAB HEMATOLOGY METHOD 10/19/2024 8:52 AM EDT [facility] RDW 13.4 11.5 - 14.5 % LAB HEMATOLOGY METHOD 10/19/2024 8:52 AM EDT [facility] MPV 9.6 8.8 - 12.5 fL LAB HEMATOLOGY METHOD 10/19/2024 8:52 AM EDT [facility] nRBC 0.0 <=0.0 per 100 WBCs LAB HEMATOLOGY METHOD 10/19/2024 8:52 AM EDT [facility] Blood Venous blood specimen / Unknown Venipuncture / Unknown 10/19/2024 8:25 AM EDT 10/19/2024 8:44 AM EDT us Nirmal Cueto MD LAB BLOOD ORDERABLES Final Result [facility] [address] [place] [address] * (ABNORMAL) POCT glucose meter (10/19/2024 7:35 [...] Comment 10/19/2024 7:37 AM EDT [facility]ALTHCARE LAB Top Dyeing Machine Loader ID Job Andrew 10/20/19 7:37 AM EDT HEALTHCARE LAB Device ID [id number] 10/19/2024 7:37 AM EDT HEALTHCARE LAB Specimen Type POC Capillary 10/19/2024 7:37 AM EDT HEALTHCARE LAB Blood Capillary blood specimen / Unknown 10/19/2024 7:35 AM EDT 10/19/2024 7:37 AM EDT us Terrell Gautam MD LAB POINT OF CARE TE ST DOCKED DEVICE UNSOLICITED RESULTS Final Result Performing Organization Address City/State/[facility] Co de Phone Number [facility] [address] [place] [address] * (ABNORMAL) POCT glucose meter (10/18/2024 7:22 [...] 10/18/2024 7:24 PM EDT [facility] Top Dyeing Machine Loader ID Mahesh Aldana 10/18/2024 7:24 PM EDT [facility] Device ID [id number] 10/18/2024 7:24 PM EDT HEALTHCARE LAB Specimen Type POC Capillary 10/18/2024 7:24 PM EDT [facility] Blood Capillary blood specimen / Unknown 10/18/2024 7:22 PM EDT 10/18/2024 7:24 PM EDT Terrell Gautam MD LAB POINT OF CARE TE ST DOCKED DEVICE UNSOLICITED RESULTS Final Result Performing Organization Address City/[facility]/ZIP Co de Phone Number [facility]ALTHCARE LAB [address] [place] [address] * (ABNORMAL) POCT glucose meter (10/18/2024 6:07 [...] Comment 10/18/2024 6:09 PM EDT HEALTHCARE LAB Top Dyeing Machine Loader ID David Parks 10/18/2024 6:09 PM EDT [facility] Device ID [id number] 10/18/2024 6:09 PM EDT [facility] Specimen Type POC Capillary 10/18/2024 6:09 PM EDT [facility] Blood Capillary blood specimen / Unknown 10/18/2024 6:07 PM EDT 10/18/2024 6:09 PM EDT us Terrell Gautam MD LAB POINT OF CARE TE ST DOCKED DEVICE UNSOLICITED RESULTS Final Result [facility] [address] [place] [address] * (ABNORMAL) POCT glucose meter (10/18/2024 11:56 [...] Comment 10/21/2024 7:42 AM EDT HEALTHCARE LAB Top Dyeing Machine Loader ID Venessa Marcano 10/21/2024 7:42 AM EDT HEALTHCARE LAB Device ID [id number] 10/21/2024 7:42 AM EDT HEALTHCARE LAB Specimen Type POC Capillary 10/21/2024 7:42 AM EDT HEALTHCARE LAB Blood Capillary blood specimen / Unknown 10/18/2024 11:56 AM EDT 10/21/2024 7:42 AM EDT us Terrell Gautam MD LAB POINT OF CARE TE ST DOCKED DEVICE UNSOLICITED RESULTS Final Result Performing Organization Address City/State/[facility] de Phone Number HEALTHCARE LAB [address] [place] [address] * (ABNORMAL) POCT glucose meter (10/18/2024 9:24 [...] Comment 10/21/2024 7:42 AM EDT HEALTHCARE LAB Top Dyeing Machine Loader ID Emilia Alonso 7:42 AM EDT HEALTHCARE LAB Device ID [id number] 10/21/2024 7:42 AM EDT HEALTHCARE LAB Specimen Type POC Venous 10/21/2024 7:42 AM EDT [facility]ALTH[facility]ARE LAB Blood Venous blood specimen / Unknown 10/18/2024 9:24 AM EDT 10/21/2024 7:42 AM EDT us Terrell Gautam MD LAB POINT OF CARE TE ST DOCKED DEVICE UNSOLICITED RESULTS Final Result [facility] [address] [place] [address] * (ABNORMAL) POCT glucose meter (10/18/2024 7:36 AM EDT) [facility] POCT Glucose 215(H) 74 - 99 mg/dL [...] for testing. Comment 10/18/2024 7:38 AM EDT [employer] [facility] Top Dyeing Machine Loader ID Kizzy Godfrey 025 7:38 AM EDT HEALTHCARE LAB Device ID [id number] 10/18/2024 7:38 AM EDT [facility] Specimen Type POC Capillary 10/18/2024 7:38 AM EDT [facility] Blood Capillary blood specimen / Unknown 10/18/2024 7:36 AM EDT 10/18/2024 7:38 AM EDT Terrell Gautam MD LAB POINT OF CARE TE ST DOCKED DEVICE UNSOLICITED RESULTS Final Result [facility] [address] [place] [address] * (ABNORMAL) CBC (10/18/2024 2:09 AM EDT) [facility] WBC Count 16.71(H) 3.70 - 10.30 10*3/uL LAB HEMATOLOGY METHOD 10/18/2024 2:33 AM EDT [facility] RBC Count 2.78(L) 4.60 - 6.10 10*6/uL LAB HEMATOLOGY METHOD 10/18/2024 2:33 AM EDT [facility] HGB 8.5(L) 13.7 - 17.5 g/dL LAB HEMATOLOGY METHOD 10/18/2024 2:33 AM EDT [facility] HCT 25.7(L) 40.0 - 51.0 % LAB HEMATOLOGY METHOD 10/18/2024 2:33 AM EDT [facility] Platelet Count 324 155 - 369 10*3/uL LAB HEMATOLOGY METHOD 10/18/2024 2:33 AM EDT [facility] MCV 92 79 - 98 fL LAB HEMATOLOGY METHOD 10/18/2024 2:33 AM EDT [facility] MCH 30.6 26.0 - 32.0 pg LAB HEMATOLOGY METHOD 10/18/2024 2:33 AM EDT [facility] MCHC 33.1 30.7 - 35.5 g/dL LAB HEMATOLOGY METHOD 10/18/2024 2:33 AM EDT [facility] RDW 13.3 11.5 - 14.5 % LAB HEMATOLOGY METHOD 10/18/2024 2:33 AM EDT [facility] MPV 9.4 8.8 - 12.5 fL LAB HEMATOLOGY METHOD 10/18/2024 2:33 AM EDT [facility] nRBC 0.0 <=0.0 per 100 WBCs LAB HEMATOLOGY METHOD 10/18/2024 2:33 AM EDT [facility] Blood Venous blood specimen / Unknown Venipuncture / Unknown 10/18/2024 2:09 AM EDT 10/18/2024 2:25 AM EDT Nirmal Cueto MD LAB BLOOD ORDERABLES Final Result [facility] [address] [place] [address] * (ABNORMAL) Basic metabolic panel (10/18/2024 2:09 AM EDT) Pathologist [facility] Glucose, Plasma 206(H) 74 - 99 mg/dL 10/18/2024 2:53 AM EDT [facility] BUN, Plasma 24(H) 8 - 23 mg/dL 10/18/2024 2:53 AM EDT [facility] Creatinine, Plasma 1.17 0.70 - 1.20 mg/dL 10/18/2024 2:53 AM EDT [facility] BUN/Creatinine Ratio 21 10/18/2024 2:53 AM EDT [facility] Sodium, Plasma 136 136 - 145 mmol/L 10/18/2024 2:53 AM EDT [facility] Potassium, Plasma 4.8 3.6 - 4.9 mmol/L 10/18/2024 2:53 AM EDT [facility] Chloride, Plasma 104 97 - 107 mmol/L 10/18/2024 2:53 AM EDT [facility] CO2, Plasma 22 22 - 29 mmol/L 10/18/2024 2:53 AM EDT [facility] Anion Gap 10 6 - 16 mmol/L 10/18/2024 2:53 AM EDT [facility] Total Calcium, Plasma 8.5(L) 8.9 - 10.2 mg/dL 10/18/2024 2:53 AM EDT [facility] eGFRcr 69.2 mL/min/1.7 3m*2 10/18/2024 2:53 AM EDT [facility] Comment:Reported eGFRcr in m L/min/1.73m2 is based the CKD-EPI 2020 equation that does not use a race coefficient. Blood Venous blood specimen / Unknown Venipuncture / Unknown 10/18/2024 2:09 AM EDT 10/18/2024 2:25 AM EDT Nirmal Cueto MD LAB BLOOD ORDERABLES Final Result [facility] [address] [place] [address] * (ABNORMAL) Magnesium (10/18/2024 2:09 AM EDT) Magnesium, Plasma 1.8(L) 1.9 - 2.4 mg/dL 10/18/2024 2:53 AM EDT [facility] Blood Venous blood specimen / Unknown Venipuncture / Unknown 10/18/2024 2:09 AM EDT 10/18/2024 2:25 AM EDT Nirmal Cueto MD LAB BLOOD ORDERABLES Final Result [facility] [address] [place] [address] * Phosphorus (10/18/2024 2:09 AM EDT) Phosphorus, Plasma 3.7 2.5 - 4.5 mg/dL 10/18/2024 2:53 AM EDT [facility] Blood Venous blood specimen / Unknown Venipuncture / Unknown 10/18/2024 2:09 AM EDT 10/18/2024 2:25 AM EDT Nirmal Cueto MD LAB BLOOD ORDERABLES Final Result Performing Organization Address City/[facility]/ZIP Co de Phone Number [facility] [address] [place] [address] * (ABNORMAL) Protime-INR (10/18/2024 2:09 AM EDT) Prothrombin Time 14.5(H) 12.0 - 14.3 sec LAB COAGULATION METHOD 10/18/2024 2:53 AM EDT [facility] INR 1.1 0.9 - 1.1 LAB COAGULATION METHOD 10/18/2024 2:53 AM EDT [facility] Blood Venous blood specimen / Unknown Venipuncture / Unknown 10/18/2024 2:09 AM EDT 10/18/2024 2:25 AM EDT Narrative [facility] - 10/18/2024 2:53 AM [...] BLOOD ORDERABLES Final Result Performing Organization Address City/[facility]/ZIP Co de Phone Number [facility] [address] [place] [address] * (ABNORMAL) POCT glucose meter (10/18/2024 2:08 AM EDT) [facility] POCT Glucose 202(H) 74 - 99 mg/dL [...] Comment 10/18/2024 2:10 AM EDT [facility] Top Dyeing Machine Loader ID Jourdan Grimes II 10/18/2024 2:10 AM EDT [facility] Device ID [id number] 10/18/2024 2:10 AM EDT [facility] Specimen Type POC Capillary 10/18/2024 2:10 AM EDT [facility] Blood Capillary blood specimen / Unknown 10/18/2024 2:08 AM EDT 10/18/2024 2:10 AM EDT us Terrell Gautam MD LAB POINT OF CARE TE ST DOCKED DEVICE UNSOLICITED RESULTS Final Result Performing Organization Address City/State/[facility] Co de Phone Number [facility] [address] [place] [address] * (ABNORMAL) POCT glucose meter (10/17/2024 10:07 [...] Comment 10/17/2024 10:10 PM EDT [facility] Top Dyeing Machine Loader ID Jourdan Grimes II 10/17/2024 10:10 PM EDT [facility] Device ID [id number] 10/17/2024 10:10 PM EDT [facility] Specimen Type POC Capillary 10/17/2024 10:10 PM EDT [facility] Blood Capillary blood specimen / Unknown 10/17/2024 10:07 PM EDT 10/17/2024 10:10 PM EDT Terrell Gautam MD LAB POINT OF CARE TE ST DOCKED DEVICE UNSOLICITED RESULTS Final Result Performing Organization Address City/[facility] de Phone Number [facility] [address] [place] [address] * (ABNORMAL) POCT glucose meter (10/17/2024 8:07 [...] Comment 10/17/2024 8:10 PM EDT [facility] Top Dyeing Machine Loader ID Jourdan Grimes II 10/17/2024 8:10 PM EDT [facility] Device ID [id number] 10/17/2024 8:10 PM EDT [facility] Specimen Type POC Capillary 10/17/2024 8:10 PM EDT [facility] Blood Capillary blood specimen / Unknown 10/17/2024 8:07 PM EDT 10/17/2024 8:10 PM EDT Terrell Gautam MD LAB POINT OF CARE TE ST DOCKED DEVICE UNSOLICITED RESULTS Final Result Performing Organization Address City/[facility]/ZIP Co de Phone Number [facility] [address] [place] [address] * (ABNORMAL) POCT glucose meter (10/17/2024 4:01 [...] Comment 10/17/2024 4:03 PM EDT [facility] Top Dyeing Machine Loader ID Keisha Waller 10/17/2024 4:03 PM EDT [facility] Device ID [id number] 10/17/2024 4:03 PM EDT [facility] Specimen Type POC Capillary 10/17/2024 4:03 PM EDT [facility] Blood Capillary blood specimen / Unknown 10/17/2024 4:01 PM EDT 10/17/2024 4:03 PM EDT us Terrell Gautam MD LAB POINT OF CARE TE ST DOCKED DEVICE UNSOLICITED RESULTS Final Result Performing Organization Address City/State/[facility] Co de Phone Number [facility] [address] [place] [address] * (ABNORMAL) POCT glucose meter (10/17/2024 1:25 PM EDT) [facility] POCT Glucose 225(H) 74 - 99 mg/dL [...] 10/17/2024 1:27 PM EDT [facility] Top Dyeing Machine Loader ID Kizzy Godfrey 025 1:27 PM EDT [facility] LAB Device ID [id number] 10/17/2024 1:27 PM EDT [facility] Specimen Type POC Capillary 10/17/2024 1:27 PM EDT [facility] Blood Capillary blood specimen / Unknown 10/17/2024 1:25 PM EDT 10/17/2024 1:27 PM EDT us Terrell Gautam MD LAB POINT OF CARE TE ST DOCKED DEVICE UNSOLICITED RESULTS Final Result Performing Organization Address City/[facility]/ZIP Co de Phone Number [facility] [address] [place] [address] * [place] Less than 1 Hour Intraoperative (10/17/2024 1:18 PM EDT) Narrative IMAGING - 10/17/2024 2:05 PM EDT Images were obtained for surgical purposes. See Terrell Gautam's surgical note in the patient's chart for the findings. Terrell Gautam MD IMG FLUOROSCOPY PROCEDURES Fi nal Result Performing Organization Address [facility] Co de Phone Number IMAGING * POCT ACT (10/17/2024 12:23 PM EDT) ACT+ (HIGH RANGE) 211 68 - 600 Seconds 10/29/2024 7:28 AM EDT [facility] Top Dyeing Machine Loader ID Donna Mcmillan 10/29/2024 7:28 AM EDT [facility] ACT Device ID [id number] 10/29/2024 7:28 AM EDT [facility] Comment 10/29/2024 7:28 AM EDT [facility] Comment: ACT performed by [...] UNSOLICITED RESULTS Final Result Performing Organization Address [facility] Co de Phone Number [facility] [address] [place], [place] [id number] [place] [address] LAB [address] [place] [address] * (ABNORMAL) Blood gas, arterial (10/17/2024 11:48 AM EDT) pH, Arterial 7.34 7.31 - 7.42 LAB HEMATOLOGY METHOD 10/17/2024 11:54 AM EDT [facility] pCO2, Arterial 41 32 - 45 mmHg LAB HEMATOLOGY METHOD 10/17/2024 11:54 AM EDT [facility] pO2, Arterial 202 >80 mmHg LAB HEMATOLOGY METHOD 10/17/2024 11:54 AM EDT [facility] SO2, Measured, Arterial 100(H) 94 - 98 % LAB HEMATOLOGY METHOD 10/17/2024 11:54 AM EDT [facility] Base Excess, Arterial -3.2(L) -2.0 - 3.0 mmol/L LAB HEMATOLOGY METHOD 10/17/2024 11:54 AM EDT [facility] Bicarbonate, Calculated, Arterial 22 22 - 26 mmol/L LAB HEMATOLOGY METHOD 10/17/2024 11:54 AM EDT [facility] Hematocrit, Whole Blood 28.6(L) 40.0 - 51.0 % LAB HEMATOLOGY METHOD 10/17/2024 11:54 AM EDT [facility] Sodium, Whole Blood 137 136 - 145 mmol/L LAB HEMATOLOGY METHOD 10/17/2024 11:54 AM EDT [facility] Potassium, Whole Blood 4.5 3.6 - 4.9 mmol/L LAB HEMATOLOGY METHOD 10/17/2024 11:54 AM EDT [facility] Chloride, Whole Blood 112(H) 97 - 107 mmol/L LAB HEMATOLOGY METHOD 10/17/2024 11:54 AM EDT [facility] Glucose, Whole Blood 201(H) 74 - 99 mg/dL LAB HEMATOLOGY METHOD 10/17/2024 11:54 AM EDT [facility] Ionized Calcium, Whole Blood 4.8 4.6 - 5.1 mg/dL LAB HEMATOLOGY METHOD 10/17/2024 11:54 AM EDT [facility] Lactate, Arterial, Whole Blood 2.3(H) 0.5 - 1.6 mmol/L LAB HEMATOLOGY METHOD 10/17/2024 11:54 AM EDT [facility] Blood Arterial blood specimen / Unknown Arterial Puncture / Unknown 10/17/2024 11:48 AM EDT 10/17/2024 11:53 AM EDT us Jenna Lopez CRNA LAB BLOOD ORDERABLES Final Re sult [facility] [address] [place] [address] * POCT ACT (10/17/2024 11:41 AM EDT) ACT+ (HIGH RANGE) 175 68 - 600 Seconds 10/29/2024 7:28 AM EDT [facility] Top Dyeing Machine Loader ID Oneyda Alicea 10/29/2024 7:28 AM EDT [facility] ACT Device ID [id number] 10/29/2024 7:28 AM EDT [facility] Comment 10/29/2024 7:28 AM EDT [facility] Comment: ACT performed by [...] ST DOCKED DEVICE UNSOLICITED RESULTS Final Result [facility] [address] LAB [address] [place] [address] * POCT ACT (10/17/2024 11:11 AM EDT) ACT+ (HIGH RANGE) 252 68 - 600 Seconds 10/29/2024 7:28 AM EDT [facility] Top Dyeing Machine Loader ID Donna Mcmillan 10/29/2024 7:28 AM EDT [facility] ACT Device ID [id number] 10/29/2024 7:28 AM EDT [facility] Comment 10/29/2024 7:28 AM EDT [facility] Comment: ACT performed by [...] DOCKED DEVICE UNSOLICITED RESULTS Final Result [facility] [address] LAB [address] [place] [address] * (ABNORMAL) Blood gas, arterial (10/17/2024 10:46 AM EDT) pH, Arterial 7.35 7.31 - 7.42 LAB HEMATOLOGY METHOD 10/17/2024 10:56 AM EDT [facility] pCO2, Arterial 42 32 - 45 mmHg LAB HEMATOLOGY METHOD 10/17/2024 10:56 AM EDT [facility] pO2, Arterial 161 >80 mmHg LAB HEMATOLOGY METHOD 10/17/2024 10:56 AM EDT [facility] SO2, Measured, Arterial 100(H) 94 - 98 % LAB HEMATOLOGY METHOD 10/17/2024 10:56 AM EDT [facility] Base Excess, Arterial -2.2(L) -2.0 - 3.0 mmol/L LAB HEMATOLOGY METHOD 10/17/2024 10:56 AM EDT [facility] Bicarbonate, Calculated, Arterial 23 22 - 26 mmol/L LAB HEMATOLOGY METHOD 10/17/2024 10:56 AM EDT [facility] Hematocrit, Whole Blood 29.9(L) 40.0 - 51.0 % LAB HEMATOLOGY METHOD 10/17/2024 10:56 AM EDT [facility] Sodium, Whole Blood 138 136 - 145 mmol/L LAB HEMATOLOGY METHOD 10/17/2024 10:56 AM EDT [facility] Potassium, Whole Blood 4.0 3.6 - 4.9 mmol/L LAB HEMATOLOGY METHOD 10/17/2024 10:56 AM EDT [facility] Chloride, Whole Blood 110(H) 97 - 107 mmol/L LAB HEMATOLOGY METHOD 10/17/2024 10:56 AM EDT [facility] Glucose, Whole Blood 174(H) 74 - 99 mg/dL LAB HEMATOLOGY METHOD 10/17/2024 10:56 AM EDT [facility] Ionized Calcium, Whole Blood 5.1 4.6 - 5.1 mg/dL LAB HEMATOLOGY METHOD 10/17/2024 10:56 AM EDT [facility] Lactate, Arterial, Whole Blood 1.4 0.5 - 1.6 mmol/L LAB HEMATOLOGY METHOD 10/17/2024 10:56 AM EDT [facility] Blood Arterial blood specimen / Unknown Arterial Puncture / Unknown 10/17/2024 10:46 AM EDT 10/17/2024 10:54 AM EDT us Jenna Lopez CRNA LAB BLOOD ORDERABLES Final Re sult [facility] [address] [place] [address] * POCT ACT (10/17/2024 10:37 AM EDT) ACT+ (HIGH RANGE) 206 68 - 600 Seconds 10/29/2024 7:28 AM EDT [facility] Top Dyeing Machine Loader ID oDnna Mcmillan 10/29/2024 7:28 AM EDT [facility] ACT Device ID [id number] 10/29/2024 7:28 AM EDT [facility] Comment 10/29/2024 7:28 AM EDT [facility] Comment: ACT performed by [...] ST DOCKED DEVICE UNSOLICITED RESULTS Final Result [facility] [address] LAB [address] [place] [address] * Surgical Pathology Exam (10/17/2024 10:27 AM EDT) Case Report Surgical Pathology Case: [id number] Authorizing Provider: Terrell Gautam MD Collected: 10/17/2024 1027 Ordering Location: [facility] Received: 10/17/2024 1325 Pathologist: Haydee Osborne MD Specimen: Other (specify site), left common femoral plaque 10/21/2024 10:16 AM EDT [facility] Final Diagnosis A. LEFT COMMON FEMORAL PLAQUE, EXCISION: - CALCIFIED PLAQUE 10/21/2024 10:16 AM EDT [facility] at 1016 EDT Clinical Information Critical limb ischemia of left lower extremity [I70.222] 10/21/2024 10:16 AM EDT [facility] Gross Description A. LEFT COMMON FEMORAL PLAQUE Received in formalin labeled l eft common femoral plaque , is one aggregate of red-gabriel hard portions of plaque measuring 3.7 x 2.5 x 0.9 cm. The specimen is serially sectioned and novelties sales representative sections are submitted in cassette A1. Cold Time: <1m Kenia Aceves 10/21/2024 10:16 AM EDT [facility] Note: A resident was involved in the service. I attest I examined the relevant preparations for the specimens and confirmed the diagnosis or interpretation. 10/21/2024 10:16 AM EDT [facility] Tissue Topography unknown / Unknown 10/17/2024 10:27 AM EDT 10/17/2024 1:25 PM EDT Comment:Pre-op diagnosis: Critical limb ischemia of left lower extremity [I70.222] us Terrell Gautam MD LAB PATHOLOGY ORDERABLES Gwen grimaldo Result [facility] [address] [place] [address] * POCT ACT (10/17/2024 10:03 AM EDT) ACT+ (HIGH RANGE) 244 68 - 600 Seconds 10/29/2024 7:28 AM EDT [facility] Top Dyeing Machine Loader ID Donna Mcmillan Maya 10/29/2024 7:28 AM EDT [facility] ACT Device ID [id number] 10/29/2024 7:28 AM EDT [facility] Comment 10/29/2024 7:28 AM EDT [facility] Comment: ACT performed by [...] ST DOCKED DEVICE UNSOLICITED RESULTS Final Result [facility] [address] [place] [address] * (ABNORMAL) Blood gas, arterial (10/17/2024 9:45 AM EDT) pH, Arterial 7.37 7.31 - 7.42 LAB HEMATOLOGY METHOD 10/17/2024 9:55 AM EDT [facility] pCO2, Arterial 43 32 - 45 mmHg LAB HEMATOLOGY METHOD 10/17/2024 9:55 AM EDT [facility] pO2, Arterial 177 >80 mmHg LAB HEMATOLOGY METHOD 10/17/2024 9:55 AM EDT [facility] SO2, Measured, Arterial 100(H) 94 - 98 % LAB HEMATOLOGY METHOD 10/17/2024 9:55 AM EDT [facility] Base Excess, Arterial -0.5 -2.0 - 3.0 mmol/L LAB HEMATOLOGY METHOD 10/17/2024 9:55 AM EDT [facility] Bicarbonate, Calculated, Arterial 25 22 - 26 mmol/L LAB HEMATOLOGY METHOD 10/17/2024 9:55 AM EDT [facility] Hematocrit, Whole Blood 30.0(L) 40.0 - 51.0 % LAB HEMATOLOGY METHOD 10/17/2024 9:55 AM EDT [facility] Sodium, Whole Blood 137 136 - 145 mmol/L LAB HEMATOLOGY METHOD 10/17/2024 9:55 AM EDT [facility] Potassium, Whole Blood 4.3 3.6 - 4.9 mmol/L LAB HEMATOLOGY METHOD 10/17/2024 9:55 AM EDT [facility] Chloride, Whole Blood 108(H) 97 - 107 mmol/L LAB HEMATOLOGY METHOD 10/17/2024 9:55 AM EDT [facility] Glucose, Whole Blood 191(H) 74 - 99 mg/dL LAB HEMATOLOGY METHOD 10/17/2024 9:55 AM EDT [facility] Ionized Calcium, Whole Blood 5.0 4.6 - 5.1 mg/dL LAB HEMATOLOGY METHOD 10/17/2024 9:55 AM EDT [facility] Lactate, Arterial, Whole Blood 1.3 0.5 - 1.6 mmol/L LAB HEMATOLOGY METHOD 10/17/2024 9:55 AM EDT [facility] Blood Arterial blood specimen / Unknown Arterial Line / Unknown 10/17/2024 9:45 AM EDT 10/17/2024 9:52 AM EDT Jenna Lopez CRNA LAB BLOOD ORDERABLES Final Re sult [facility] [address] [place] [address] * (ABNORMAL) Blood gas, arterial (10/17/2024 8:47 AM EDT) pH, Arterial 7.37 7.31 - 7.42 LAB HEMATOLOGY METHOD 10/17/2024 8:59 AM EDT [facility] pCO2, Arterial 43 32 - 45 mmHg LAB HEMATOLOGY METHOD 10/17/2024 8:59 AM EDT [facility] pO2, Arterial 205 >80 mmHg LAB HEMATOLOGY METHOD 10/17/2024 8:59 AM EDT [facility] SO2, Measured, Arterial 100(H) 94 - 98 % LAB HEMATOLOGY METHOD 10/17/2024 8:59 AM EDT [facility] Base Excess, Arterial -0.3 -2.0 - 3.0 mmol/L LAB HEMATOLOGY METHOD 10/17/2024 8:59 AM EDT [facility] Bicarbonate, Calculated, Arterial 25 22 - 26 mmol/L LAB HEMATOLOGY METHOD 10/17/2024 8:59 AM EDT [facility] Hematocrit, Whole Blood 31.3(L) 40.0 - 51.0 % LAB HEMATOLOGY METHOD 10/17/2024 8:59 AM EDT [facility] Sodium, Whole Blood 138 136 - 145 mmol/L LAB HEMATOLOGY METHOD 10/17/2024 8:59 AM EDT [facility] Potassium, Whole Blood 4.0 3.6 - 4.9 mmol/L LAB HEMATOLOGY METHOD 10/17/2024 8:59 AM EDT [facility] Chloride, Whole Blood 108(H) 97 - 107 mmol/L LAB HEMATOLOGY METHOD 10/17/2024 8:59 AM EDT [facility] Glucose, Whole Blood 162(H) 74 - 99 mg/dL LAB HEMATOLOGY METHOD 10/17/2024 8:59 AM EDT [facility] Ionized Calcium, Whole Blood 5.2(H) 4.6 - 5.1 mg/dL LAB HEMATOLOGY METHOD 10/17/2024 8:59 AM EDT [facility] Lactate, Arterial, Whole Blood 1.7(H) 0.5 - 1.6 mmol/L LAB HEMATOLOGY METHOD 10/17/2024 8:59 AM EDT [facility] Blood Arterial blood specimen / Unknown Arterial Puncture / Unknown 10/17/2024 8:47 AM EDT 10/17/2024 8:58 AM EDT us Jenna Lopez [facility] BLOOD ORDERABLES Final Re sult [facility] [address] [place] [address] * POCT ACT (10/17/2024 8:46 AM EDT) ACT+ (HIGH RANGE) 101 68 - 600 Seconds 10/29/2024 7:28 AM EDT [facility] Top Dyeing Machine Loader ID Donna Mcmillan Maya 10/29/2024 7:28 AM EDT [facility] ACT Device ID [id number] 10/29/2024 7:28 AM EDT [facility] Comment 10/29/2024 7:28 AM EDT [facility] Comment: ACT performed by [...] UNSOLICITED RESULTS Final Result Performing Organization Address [facility] Co de Phone Number HEALTHCARE LAB [address] LAB [address] [place] [address] * Type and Screen (10/17/2024 7:19 AM [...] ORDERAB LES Final Result Performing Organization Address [facility] de Phone Number BLOOD BANK [address] [address] * (ABNORMAL) POCT glucose meter (10/17/2024 6:44 [...] 10/17/2024 6:49 AM EDT [facility] Top Dyeing Machine Loader ID Hunter Burroughs 10/18/19 6:49 AM EDT [facility] Device ID [id number] 10/17/2024 6:49 AM EDT [facility]ALTH[facility] LAB Specimen Type POC Capillary 10/17/2024 6:49 AM EDT [facility] Blood Capillary blood specimen / Unknown 10/17/2024 6:44 AM EDT 10/17/2024 6:49 AM EDT Terrell Gautam MD LAB POINT OF CARE TE ST DOCKED DEVICE UNSOLICITED RESULTS Final Result [facility] [address] [place] [address] documented in this encounter Visit Diagnoses Diagnosis [...] documented as of this encounter Care Teams Legal Researcher Relationship Specialty Start Date End Date Asad Victor MD [address] [place] [id number] PCP - General 10/07/22 documented as of this encounter
--- OUTSIDE RECORDS SUMMARY | 2024-10-17 07:51 | XMS_ITS | Encounter Summary ---
Author Organization [facility] Address [address] [id number] Care Team Providers Care Car Carder Name Role Phone Asad Victor MD Primary Care Provider + [phone] Reason for Visit * Auth/Cert (Routine) Specialty Diagnoses / Procedures Referred By Contac t Referred To Contact Diagnoses Critical limb ischemia of left lower extremity Critical limb ischemia of left lower extremity [I70.222] Procedures UT VEIN BYPASS GRAFT,FEM-POP CREATION, BYPASS, ARTERIAL, FEMORAL TO POPLITEAL Terrell Gautam MD [address] [facility] [address] [place] [address] Phone: tel: fax: PAV A OPERATING ROOM [address] [place] [address] Phone: tel: Referral ID Status Reason Start Date Expiration Date Visits Re quested Visits Authorized [id number] 1 1 Encounter Details Date Type Department Care Team (Late st Contact Info) Description 10/17/2024 7:51 AM EDT Anesthesia Event PAV A OPERATING ROOM [address] [place] [address] Maria Fernanda Mccallum MD [address] [place] [address] Anesthesia Record Procedure Summary Procedure [...] Site Prep: Chlorhexidine ; Local Anesth: [place]; Technique: Anatomical landmarks; Inserted by: CHRISTIAN Acuna; [...] drink first t dino in the morning (EYE-HADOOP ADMIN) to steady your nerves or to get [...] * Anesthesia Postprocedure Evaluation - Jenna Lopez, CARBONATING STONE CLEANER - 10/17/2024 1:29 PM EDT Patient: Moon [...] by Swetha Villareal MD Staffing Performed: ISH CARBONATING STONE CLEANER: Jenna Lopez CRNA * Anesthesia Procedure Notes - Jenna Lopez CRNA - 10/17/2024 9:00 AM EDT Associated Order(s): Airway Airway Date/Time: 10/17/2024 8:03 AM Reason: elective Airway not difficult General Information and Staff Patient location during procedure: OR CARBONATING STONE CLEANER: Jenna Lopez CRNA Performed: CARBONATING STONE CLEANER Patient Condition Indications for airway management: anesthesia [...] HTN, RLS who presented to 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 CORONARY ANGIOPLASTY Left Coronary Angiography With Concomitant Left Heart Catheterization from [facility] [place] ??? CORONARY ARTERY BYPASS GRAFT N/A 2018 [...] PM EDT Office Visit [facility] [address] [place] [address] Oscar Appiah MD [address] [facility] [address] [place] [address] 12/19/2024 7:30 AM EDT Appointment [facility] [address] [place] [address] 12/19/2024 8:00 AM EDT Appointment [facility] [address] [place] [address] [address] [place] [address] 12/19/2024 9:00 AM EDT Office Visit [facility] [address] [place] [address] [address] [place] [address] Nathaly Nowak MD [address] [place] [address] [address] [place] [address] documented as of this encounter Goals Goal [...] Performed by Swetha Villareal MD Staffing Performed: CARBONATING STONE CLEANER CARBONATING STONE CLEANER: Jenna Lopez CRNA Maria Fernanda Mccallum MD ANESTHESIA ORDERABLES Edite d Result - Final * [place] AN ELECTIVE ENDOTRACHEAL AIRWAY, PB ANESTHESIA PLACEHOLDER (10/17/2024 8:03 AM EDT) Narrative Jenna Lopez CRNA - 10/17/2024 8:03 AM EDT Jenna Lopez CRNA 10/17/2024 9:00 AM Airway Date/Time: 10/17/2024 8:03 AM Reason: elective Airway not difficult General Information and Staff Patient location during procedure: OR CARBONATING STONE CLEANER: Jenna Lopez CRNA Performed: ISH Patient Condition [...] Trace AR. The images were Saved in [employer]. The study was technically adequate. Comments: I [...] documented as of this encounter Care Teams Car Carder Relationship Specialty Start Date End Date Asad Victor MD [address] [place] [address] PCP - General 10/07/22 documented as of this encounter
--- OUTSIDE RECORDS SUMMARY | 2024-10-17 08:00 | XMS_ITS | Encounter Summary ---
Author Organization [facility] Address [address] [place] [address] Care Team Providers Care Cell Operation Supervisor Name Role Phone Asad Victor MD Primary Care Provider + [phone] Reason for Visit * Auth/Cert (Routine) Specialty Diagnoses / Procedures Referred By Contac t Referred To Contact Diagnoses Critical limb ischemia of left lower extremity Critical limb ischemia of left lower extremity [I70.222] Procedures UT VEIN BYPASS GRAFT,FEM-POP CREATION, BYPASS, ARTERIAL, FEMORAL TO POPLITEAL Terrell Gautam MD [address] [address] Phone: tel: fax: [facility] [address] [place] [address] Phone: tel: Referral ID Status Reason Start Date Expiration Date Visits Re quested Visits Authorized [id number] 1 1 Encounter Details Date Type Department Care Team (Late st Contact Info) Description 10/17/2024 8:00 AM EDT - 10/17/2024 2:50 PM EDT Surgery [facility] [address] [place] [address] Terrell Gautam MD [address] [address] CREATION, BYPASS, ARTERIAL, FEMORAL TO POPLITEAL [90095 (CPT )] Surgery Details Date/Time Status Location [...] time in the past 12 m [facility], were you homeless or living [...] drink first t dino in the morning (EYE-CATTLE SORTER) to steady your nerves or to get rid of a hangover? 0 10/18/2021 CAGE Questionnaire Score 0 022 Utilities Answer Date Recorded In the past 12 months has th e [employer], gas, oil, or water [employer] threatened to shut off services in your [...] provided Taken 10/17/20242107 by Jourdan Grimes II, manager emergency Review/Management: medications reviewed Problem: Skin Injury Risk [...] Ongoing, Progressing Intervention: Promote Activity and Functional [place] Flowsheets (Taken 10/19/2024 1048) Self-Care Promotion: BADL personal objects within reach meal set-up provided * Yuni Ramires - Keyla Chow - 10/19/2024 11:45 AM EDT Images from the original note were not included. [id number] After Peripheral Artery Bypass Surgery: In the [...] home. Last Reviewed Date: 2023 00:00:00 ?? [id number] The [employer]. All rights reserved. This information is not intended as a substitute for professional medical care. Always follow your healthcare professional's instructions. * Progress Notes - Emelina Friend - 10/19/2024 11:44 AM EDT Case Management Adult Progress Note Bev Bobby 64 y.o. male CSN: [id number] Admission: 10/17/2024 6:21 AM Primary Problem: Critical [...] if any other needs arise. Emelina Friend OIL AND GAS PRINCIPAL, SENIOR DRUPAL DEVELOPER Social Work Case Management * Yuni Ramires - Keyla Chow - 10/19/2024 11:44 AM EDT Images from the original note were not included. [id number] Peripheral Artery Disease (PAD) Peripheral artery disease [...] cause. Last Reviewed Date: 2024 00:00:00 ?? [id number] The [employer]. All rights reserved. This information is not intended as a substitute for professional medical care. Always follow your healthcare professional's instructions. * Yuni Ramires - Keyla Chow - 10/19/2024 11:44 AM EDT Images from the original note were not included. [id number] Leg Artery Emergencies: Critical Limb Ischemia (CLI) [...] appointments. Last Reviewed Date: 2023 00:00:00 ?? [id number] The [employer]. All rights reserved. This information is not intended as a substitute for professional medical care. Always follow your healthcare professional's instructions. * Discharge Summary - Dandy Baltazar MD - 10/19/2024 11:31 AM EDT Hospitalization Admit Date/Time: 10/17/2024 6:21 AM Admitting Attending: Terrell Gautam Discharge Date: 10/19/24 Discharge Attending Physician: Nirmal Cueto MD PCP name and Address: Asad Victor MD (Inactive) [address] [facility] [address] Referring provider name and address: Timothy Marques PA [address] [place] [address] Chief Concern, Brief History of Present Illness, and Hospital Course Bev Bobby is an 64 y.o. 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 He [...] were sent to [facility] [place], [place] - [address] [facility] [address]. [address] [facility] A., [facility] [address] acetaminophen 500 MG tablet clopidogrel 75 MG [...] of water. 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 He [...] provided Taken 10/17/20242107 by Jourdan Grimes II manager emergency Review/Management: medications reviewed Problem: Skin Injury Risk [...] Ongoing, Progressing Intervention: Promote Activity and Functional [place] Flowsheets (Taken 10/19/2024 1048) Self-Care Promotion: BADL [...] evaluation. PARTICIPANTS IN CARE Visitors Present No Scrap Wheeler (if applicable) PRESENTATION Oxygen Oxygen Therapy: None [...] Level of Mobility Ambulatory- household only Mobility [place] Independent gait with device (rollator) History of [...] numbness in rodney) BED MOBILITY Level of [place] Physical/Non- physical Assist Adaptive Equipment Utilized Rolling/ Turning Scooting/ Bridging Modified independence (anteriorly to EOB) Bed rails Supine to Sit Modified [place] (to the right) (HOB flat) Bed rails Sit to Supine Interventions HOB flat to simulate home environment TRANSFERS Level of [place] Physical/Non- physical Assist Adaptive Equipment Utilized Sit [...] stable surfaces during transitions. AMBULATION Level of [place] Distance Adaptive Equipment Utilized Ambulation Standby assist, [...] Posture: Forward head, Rounded shoulders Level of [place] Balance Support Interventions Static Sit Independent Right [...] Assessments Standardized Assessments: AMPA 6-Clicks Mobility Assessment [facility] 6-Clicks Mobility Assessment Difficulty patient has [...] 3-5 steps with a railing?: A little [facility] 6-Clicks Mobility Assessment Total : 22 [...] evaluation/session. Participants in Care Family/Caregiver Present: No Scrap Wheeler: Not Applicable Presentation Oxygen Therapy: None (Room [...] Level of Mobility: Ambulatory- household only Mobility [place]: Independent gait with device (rollator) History of [...] Mobility Bed Mobility Exam: Scooting/Bridging Level of [place]: Modified independence (anteriorly to EOB) Assistive Device: Bed rails Bed Mobility Exam: Supine to Sit Level of Renville: Modified [place] (to the right) Physical/Nonphysical Assist: (HOB flat) Assistive Device: Bed rails Transfers Transfer Exam: Sit to stand Level of Renville: Stand-by assist Physical/Nonphysical Assist: Supervision, Verbal Cues, Minimal cues Assistive Device: Walker, rolling Transfer Exam: Stand to Sit Level of Renville: Stand-by assist Physical/Nonphysical Assist: Supervision, Verbal Cues, [...] regarding toileting at this time. Standardized Assessments [facility] 6-Click Daily Activities Help from Other: Don/Doff Regular Lower Body Clothings: None Help From Other: Bathing: Little Help From Other: Toileting: None Help From Other: Don/Doff Upper Body Clothings: None Help From Other: Grooming: None Help From Other: Eating Meals: None [facility] 6 Click - Daily Activities Score: 23/24 [facility] Scoring Interpretation: Scores greater than 20.5 [...] Note Bev Bobby 64 y.o. male CSN: [id number] Admission: 10/17/2024 6:21 AM Primary Problem: Critical limb ischemia of left lower extremity Tool Room Attendant reviewed chart and spoke with patient to complete this Initial Case Management Assessment. PCP: Asad Victor MD (Inactive) - Dr. Palomo Preferred pharmacy is [facility] Emergency Contact: Extended Emergency Contact Information Primary Emergency Contact: Patti Hill Relation: Sister Scrap Wheeler needed? No Insurance: Primary Visit Coverage Payer Plan Sponsor Code Group Number Group Name [facility] MEDICARE [facility] MEDICARE REPLACEMENT [id number] Primary Visit Coverage Subscriber Subscriber ID Subscriber Name Subscriber [facility] Subscriber Address [id number] BEV BOBBY [id number] [place] [address] Secondary Visit Coverage Payer Plan Sponsor Code Group Number Group Name [facility] MEDICAID [id number] Secondary Visit Coverage Subscriber Subscriber ID Subscriber Name Subscriber [facility] Subscriber Address [id number] BEV BOBBY [id number] [place] [address] Patient information: Primary Caregiver: Self Daily Living Activities: Functional Status: Independent Living Arrangements: Alone Type of Residence: Private residence, Single Level [address] [place] [address] Current DME: Equipment Currently Used at Home: joy monterroso Income Information: Income Source: Retired Income/Expense Information: Income meets expenses Current Resources Utilized: Food [place] Housing Circumstances-Z Codes: Housing Circumstances (select all [...] Dialysis Services: None. Living Will/Advance Directive/Power of Referral Nurse /Guardian: Denied. Additional Comments: Patient is not medically ready for discharge. SW will continue to follow. Mariia Monterroso SENIOR DRUPAL DEVELOPER * Care Plan - Emilia Alonso [...] [facility] Department of Surgery Division of [...] Prevention: activity supervised assistive device/personal items within [facility] fall prevention program maintained lighting adjusted [...] Agree with above assessment and evaluation from resident/BUSINESS ARCHITECT. * Op Note - Terrell Gautam MD - 10/17/2024 8:52 AM EDT Operative Note Date: 10/17/24 Location: [place] [facility] Name: Bev Bobby, : 1960, Diagnoses: Pre-op Diagnosis Critical limb ischemia of left lower extremity Common femoral artery pseudoaneurysm Post-op Diagnosis Critical limb ischemia of left lower extremity Common femoral artery pseudoaneurysm Procedure(s): Left common/superficial/profunda femoral thromboendarterectomy with bovine patch repair Left external iliac artery/SEED LABORATORY TECHNICIAN stent Attending Surgeon(s): * Terrell Gautam - Primary Photography Coordinator(s): * Luna Beckett MD - Resident [...] Necessity Reasons Recent surgery contiguous with urinary tract/AUTOMAT CAR ATTENDANT/colorectal 10/17/24 190 Output (mL) 50 mL 10/18/24 08 Implants Type Name Action Serial No. VASCUGUARD 8 X 8 - [id number] Implanted STENT ENDOPROSTHESIS VIABAHN 9FR [id number] - [id number] Implanted [id number] Specimen: Specimens ID Source Frozen? 1 Other [...] and distal control. We then proceeded with zauwz-bla-fqet exposure of the popliteal artery. A medial [...] balloon dilated thestent with a 9 mm Mullens. We closed the arteriotomy with a single [...] 10/17/2024 8:52 AM EDT Date: 10/17/24 Location: [place] [facility] Name: Bev Bobby, : 1960, Diagnoses: Pre-op Diagnosis Critical limb ischemia of left lower extremity Common femoral artery pseudoaneurysm Post-op Diagnosis Critical limb ischemia of left lower extremity Common femoral artery pseudoaneurysm Procedure(s): Left common/superficial/profunda femoral thromboendarterectomy with bovine patch repair Left external iliac artery/SEED LABORATORY TECHNICIAN stent Attending Surgeon(s): * Terrell Gautam - Primary Photography Coordinator(s): * Luna Beckett MD - Resident - Assisting * Dandy Baltazar MD - Fellow Anesthesia: General ASA: III Blood Administration: Blood Product Administration History None Estimated Blood Loss: 300 mL Drains: Urethral Catheter Temperature probe 16 Fr. (Active) Implants Type Name Action Serial No. VASCUGUARD 8 X 8 - [id number] Implanted STENT ENDOPROSTHESIS VIABAHN 9FR [id number] - [id number] Implanted [id number] Specimen: Specimens ID Source Frozen? 1 Other [...] issues. 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 He previouslyunderwent thrombin injection. He reports pain in his calves. He presents today for scheduled left lower extremity femoral to tyzui-yiz-tfcl popliteal bypass. Planned likely use PTFE. He [...] 16. Results Review {Vanishing Link Review Results :[id number] I have reviewed the latest lab and imaging results. Assessment & Plan Critical limb ischemia of left lower extremity Proceed with scheduled surgery left lower extremity femoral to sjfrx-kva-yoin popliteal artery bypass graft. Extensive discussion had [...] Description 12/13/2024 2:00 PM EDT Office Visit [facility] [address] [place] [phone] Oscar Appiah MD [address] [facility] [address] [place] [phone] 12/19/2024 7:30 AM EDT Appointment [facility] [address] [place] [address] 12/19/2024 8:00 AM EDT Appointment [facility] [address] [place] [address] 12/19/2024 9:00 AM EDT Office Visit [facility] [address] [place] [address] Nathaly Nowak MD [address] [facility] [address] [place] [address] Pending Results Name Type Priority Associated Diagnoses [...] PREPARE RBC STAT 10/17/2024 8:06 AM EDT UT VEIN BYPASS GRAFT,FEM-POP 10/17/2024 7:38 AM EDT Critical limb ischemia of left lower extremity TYPE AND SCREEN Routine 10/17/2024 7:19 AM EDT POCT GLUCOSE METER UNSOLICITED RESULTS Routine 10/17/2024 6:44 AM EDT documented in this encounter Results * (ABNORMAL) POCT glucose meter (10/19/2024 11:40 AM EDT) Pathologist [facility] POCT Glucose 207(H) 74 - 99 mg/dL [...] Comment 10/19/2024 11:42 AM EDT HEALTHCARE LAB Final Touch Up Painter ID KamranJob 10/20/19 11:42 AM EDT HEALTHCARE LAB Device ID [id number] 10/19/2024 11:42 AM EDT HEALTHCARE LAB Specimen Type POC Capillary 10/19/2024 11:42 AM EDT [facility] Blood Capillary blood specimen / Unknown 10/19/2024 11:40 AM EDT 10/19/2024 11:42 AM EDT us Terrell Gautam MD LAB POINT OF CARE TE ST DOCKED DEVICE UNSOLICITED RESULTS Final Result Performing Organization Address City/State/[facility] Co de Phone Number HEALTHCARE LAB [address] [place] [address] * (ABNORMAL) Protime-INR (10/19/2024 8:25 AM EDT) [facility] Prothrombin Time 17.5(H) 12.0 - 14.3 sec [...] BLOOD ORDERABLES Final Result Performing Organization Address [facility]/ZIP Co de Phone Number [facility] [address] [place] [address] * (ABNORMAL) Phosphorus (10/19/2024 8:25 AM EDT) Phosphorus, Plasma 2.2(L) 2.5 - 4.5 mg/dL 10/19/2024 9:12 AM EDT [facility] Blood Venous blood specimen / Unknown Venipuncture / Unknown 10/19/2024 8:25 AM EDT 10/19/2024 8:43 AM EDT Nirmal Cueto MD LAB BLOOD ORDERABLES Final Result Performing Organization Address [facility] Co de Phone Number [facility] [address] [place] [address] * Magnesium (10/19/2024 8:25 AM EDT) Magnesium, Plasma 2.1 1.9 - 2.4 mg/dL 10/19/2024 9:12 AM EDT [facility] Blood Venous blood specimen / Unknown Venipuncture / Unknown 10/19/2024 8:25 AM EDT 10/19/2024 8:43 AM EDT Nirmal Cueto MD LAB BLOOD ORDERABLES Final Result Performing Organization Address [facility] Co de Phone Number [facility] [address] [place] [address] * (ABNORMAL) Basic metabolic panel (10/19/2024 8:25 [...] Final Result [facility] [address] [place] [address] * (ABNORMAL) CBC W/O Differential (10/19/2024 8:25 [...] Final Result [facility] [address] [place] [address] * (ABNORMAL) POCT glucose meter (10/19/2024 7:35 AM EDT) POCT Glucose 187(H) 74 - 99 mg/dL 10/19/2024 7:37 AM EDT [facility] Comment:Accuracy of a glucos [...] Comment 10/19/2024 7:37 AM EDT HEALTHCARE LAB Final Touch Up Painter ID Job Andrew 10/20/19 7:37 AM EDT HEALTHCARE LAB Device ID [id number] 10/19/2024 7:37 AM EDT HEALTHCARE LAB Specimen Type POC Capillary 10/19/2024 7:37 AM EDT HEALTHCARE LAB Blood Capillary blood specimen / Unknown 10/19/2024 7:35 AM EDT 10/19/2024 7:37 AM EDT us Terrell Gautam MD LAB POINT OF CARE TE ST DOCKED DEVICE UNSOLICITED RESULTS Final Result Performing Organization Address City/State/[facility] Co de Phone Number HEALTHCARE LAB [address] [place] [address] * (ABNORMAL) POCT glucose meter (10/18/2024 7:22 [...] Comment 10/18/2024 7:24 PM EDT HEALTHCARE LAB Final Touch Up Painter ID Mahesh Aldana 10/18/2024 7:24 PM EDT HEALTHCARE LAB Device ID [id number] 10/18/2024 7:24 PM EDT HEALTHCARE LAB Specimen Type POC Capillary 10/18/2024 7:24 PM EDT HEALTHCARE LAB Blood Capillary blood specimen / Unknown 10/18/2024 7:22 PM EDT 10/18/2024 7:24 PM EDT us Terrell Gautam MD LAB POINT OF CARE TE ST DOCKED DEVICE UNSOLICITED RESULTS Final Result Performing Organization Address [facility] Co de Phone Number [facility] [address] [place] [address] * (ABNORMAL) POCT glucose meter (10/18/2024 6:07 [...] Comment 10/18/2024 6:09 PM EDT HEALTHCARE LAB Final Touch Up Painter ID David Parks Elaine 10/18/2024 6:09 PM EDT HEALTHCARE LAB Device ID [id number] 10/18/2024 6:09 PM EDT HEALTHCARE LAB Specimen Type POC Capillary 10/18/2024 6:09 PM EDT [facility] Blood Capillary blood specimen / Unknown 10/18/2024 6:07 PM EDT 10/18/2024 6:09 PM EDT Terrell Gautam MD LAB POINT OF CARE TE ST DOCKED DEVICE UNSOLICITED RESULTS Final Result Performing Organization Address [facility] Co de Phone Number [facility] [address] [place] [address] * (ABNORMAL) POCT glucose meter (10/18/2024 11:56 AM EDT) [facility] POCT Glucose 233(H) 74 - 99 mg/dL [...] 10/21/2024 7:42 AM EDT [facility] Final Touch Up Painter ID Venessa Marcano 10/21/2024 7:42 AM EDT [facility] Device ID [id number] 10/21/2024 7:42 AM EDT HEALTHCARE LAB Specimen Type POC Capillary 10/21/2024 7:42 AM EDT HEALTHCARE LAB Blood Capillary blood specimen / Unknown 10/18/2024 11:56 AM EDT 10/21/2024 7:42 AM EDT us Terrell Gautam MD LAB POINT OF CARE TE ST DOCKED DEVICE UNSOLICITED RESULTS Final Result Performing Organization Address City/[facility] Co de Phone Number [facility] [address] [place] [address] * (ABNORMAL) POCT glucose meter (10/18/2024 9:24 AM EDT) Pathologist [facility] POCT Glucose 322(H) 74 - 99 mg/dL [...] 10/21/2024 7:42 AM EDT [facility] Final Touch Up Painter ID Emilia Alonso 7:42 AM EDT [facility] Device ID [id number] 10/21/2024 7:42 AM EDT [facility] Specimen Type POC Venous 10/21/2024 7:42 AM EDT HEALTHCARE LAB Blood Venous blood specimen / Unknown 10/18/2024 9:24 AM EDT 10/21/2024 7:42 AM EDT us Terrell Gautam MD LAB POINT OF CARE TE ST DOCKED DEVICE UNSOLICITED RESULTS Final Result Performing Organization Address City/[facility] Co de Phone Number [facility] [address] [place] [address] * (ABNORMAL) POCT glucose meter (10/18/2024 7:36 [...] Comment 10/18/2024 7:38 AM EDT HEALTHCARE LAB Final Touch Up Painter ID Kizzy Godfrey 025 7:38 AM EDT HEALTHCARE LAB Device ID [id number] 10/18/2024 7:38 AM EDT [facility] Specimen Type POC Capillary 10/18/2024 7:38 AM EDT [facility] Blood Capillary blood specimen / Unknown 10/18/2024 7:36 AM EDT 10/18/2024 7:38 AM EDT us Terrell Gautam MD LAB POINT OF CARE TE ST DOCKED DEVICE UNSOLICITED RESULTS Final Result HEALTHCARE LAB [address] [place] [address] * (ABNORMAL) CBC (10/18/2024 2:09 AM EDT) [...] Final Result [facility] [address] [place] [address] * (ABNORMAL) Basic metabolic panel (10/18/2024 2:09 [...] [facility]/ZIP Co de Phone Number [facility] [address] [place] [address] * (ABNORMAL) Magnesium (10/18/2024 2:09 AM EDT) Magnesium, Plasma 1.8(L) 1.9 - 2.4 mg/dL 10/18/2024 2:53 AM EDT [facility] Blood Venous blood specimen / Unknown Venipuncture / Unknown 10/18/2024 2:09 AM EDT 10/18/2024 2:25 AM EDT Nirmal Cueto MD LAB BLOOD ORDERABLES Final Result [facility] [address] [place] [address] * Phosphorus (10/18/2024 2:09 AM EDT) Phosphorus, Plasma 3.7 2.5 - 4.5 mg/dL 10/18/2024 2:53 AM EDT [facility] Blood Venous blood specimen / Unknown Venipuncture / Unknown 10/18/2024 2:09 AM EDT 10/18/2024 2:25 AM EDT Nirmal Cueto MD LAB BLOOD ORDERABLES Final Result Performing Organization Address [facility] Co de Phone Number [facility] [address] [place] [address] * (ABNORMAL) Protime-INR (10/18/2024 2:09 AM EDT) [...] recurrent NM INR 2.5 to 3.5 Result [facility] Nirmal Cueto MD LAB BLOOD ORDERABLES Final Result Performing Organization Address [facility] Co de Phone Number [facility] [address] [place] [address] * (ABNORMAL) POCT glucose meter (10/18/2024 2:08 AM EDT) POCT Glucose 202(H) 74 - 99 mg/dL 10/18/2024 2:10 AM EDT [facility] Comment:Accuracy of a glucos [...] Comment 10/18/2024 2:10 AM EDT HEALTHCARE LAB Final Touch Up Painter ID Jourdan Grimes II 10/18/2024 2:10 AM EDT HEALTHCARE LAB Device ID [id number] 10/18/2024 2:10 AM EDT HEALTHCARE LAB Specimen Type POC Capillary 10/18/2024 2:10 AM EDT HEALTHCARE LAB Blood Capillary blood specimen / Unknown 10/18/2024 2:08 AM EDT 10/18/2024 2:10 AM EDT us Terrell Gautam MD LAB POINT OF CARE TE ST DOCKED DEVICE UNSOLICITED RESULTS Final Result Performing Organization Address City/[facility] Co sd Phone Number HEALTHCARE LAB [address] [place] [address] * (ABNORMAL) POCT glucose meter (10/17/2024 10:07 [...] Comment 10/17/2024 10:10 PM EDT HEALTHCARE LAB Final Touch Up Painter ID Jourdan Grimes II 10/17/2024 10:10 PM EDT HEALTHCARE LAB Device ID [id number] 10/17/2024 10:10 PM EDT HEALTHCARE LAB Specimen Type POC Capillary 10/17/2024 10:10 PM EDT HEALTHCARE LAB Blood Capillary blood specimen / Unknown 10/17/2024 10:07 PM EDT 10/17/2024 10:10 PM EDT us Terrell Gautam MD LAB POINT OF CARE TE ST DOCKED DEVICE UNSOLICITED RESULTS Final Result [facility] [address] [place] [address] * (ABNORMAL) POCT glucose meter (10/17/2024 8:07 PM EDT) [facility] POCT Glucose 391(H) 74 - 99 mg/dL [...] Comment 10/17/2024 8:10 PM EDT HEALTHCARE LAB Final Touch Up Painter ID Cornelio WALTERS Jourdan 10/17/2024 8:10 PM EDT HEALTHCARE LAB Device ID [id number] 10/17/2024 8:10 PM EDT [facility] Specimen Type POC Capillary 10/17/2024 8:10 PM EDT [facility] Blood Capillary blood specimen / Unknown 10/17/2024 8:07 PM EDT 10/17/2024 8:10 PM EDT Terrell Gautam MD LAB POINT OF CARE TE ST DOCKED DEVICE UNSOLICITED RESULTS Final Result Performing Organization Address [facility] de Phone Number [facility] [address] [place] [address] * (ABNORMAL) POCT glucose meter (10/17/2024 4:01 PM EDT) [facility] POCT Glucose 249(H) 74 - 99 mg/dL [...] 10/17/2024 4:03 PM EDT [facility] [facility] Final Touch Up Painter ID Chelsieamanda Keisha 10/17/2024 4:03 PM EDT [facility] Device ID [id number] 10/17/2024 4:03 PM EDT [facility] Specimen Type POC Capillary 10/17/2024 4:03 PM EDT [facility] Blood Capillary blood specimen / Unknown 10/17/2024 4:01 PM EDT 10/17/2024 4:03 PM EDT us Terrell Gautam MD LAB POINT OF CARE TE ST DOCKED DEVICE UNSOLICITED RESULTS Final Result Performing Organization Address City/[facility] Co de Phone Number [facility] [address] [place] [address] * (ABNORMAL) POCT glucose meter (10/17/2024 1:25 [...] 10/17/2024 1:27 PM EDT [facility] Final Touch Up Painter ID Kizzy Godfrey 025 1:27 PM EDT [facility] Device ID [id number] 10/17/2024 1:27 PM EDT [facility] Specimen Type POC Capillary 10/17/2024 1:27 PM EDT [facility] Blood Capillary blood specimen / Unknown 10/17/2024 1:25 PM EDT 10/17/2024 1:27 PM EDT us Terrell Gautam MD LAB POINT OF CARE TE ST DOCKED DEVICE UNSOLICITED RESULTS Final Result Performing Organization Address City/[facility] Co de Phone Number [facility] [address] [place] [address] * [place] Less than 1 Hour Intraoperative [...] Seconds 10/29/2024 7:28 AM EDT [facility] Final Touch Up Painter ID Donna Mcmillan 10/29/2024 7:28 AM EDT [facility] ACT Device ID [id number] 10/29/2024 7:28 AM EDT [facility] Comment 10/29/2024 7:28 AM EDT [facility] [...] Result Performing Organization Address City/[facility] Co de Phone Number [facility] [address] LAB [address] [place] [address] * (ABNORMAL) Blood gas, arterial (10/17/2024 11:48 [...] 10/17/2024 11:53 AM EDT us Jenna Lopez BUSINESS ARCHITECT LAB BLOOD ORDERABLES Final Re sult [facility] [address] [place] [address] * POCT ACT (10/17/2024 11:41 AM EDT) ACT+ (HIGH RANGE) 175 68 - 600 Seconds 10/29/2024 7:28 AM EDT [facility] Final Touch Up Painter ID Oneyda Alicea 10/29/2024 7:28 AM EDT [facility] ACT Device ID [id number] 10/29/2024 7:28 AM EDT [facility] Comment 10/29/2024 7:28 AM EDT [facility] Comment: ACT performed by [...] Result Performing Organization Address City/[facility] Co de Phone Number [facility] [address] LAB [address] [place] [address] * POCT ACT (10/17/2024 11:11 AM EDT) ACT+ (HIGH RANGE) 252 68 - 600 Seconds 10/29/2024 7:28 AM EDT [facility] Final Touch Up Painter ID Donna Mcmillan 10/29/2024 7:28 AM EDT [facility] ACT Device ID [id number] 10/29/2024 7:28 AM EDT [facility] Comment 10/29/2024 7:28 AM EDT [facility] Comment: ACT performed by [...] de Phone Number [facility] [address] LAB [address] [place] [address] * (ABNORMAL) Blood gas, arterial (10/17/2024 10:46 [...] 10/17/2024 10:54 AM EDT us Jenna Lopez BUSINESS ARCHITECT LAB BLOOD ORDERABLES Final Re sult Performing Organization Address City/[facility]/ZIP Co de Phone Number [facility] [address] [place] [address] * POCT ACT (10/17/2024 10:37 AM EDT) ACT+ (HIGH RANGE) 206 68 - 600 Seconds 10/29/2024 7:28 AM EDT [facility] Final Touch Up Painter ID Donna Mcmillan 10/29/2024 7:28 AM EDT [facility] ACT Device ID [id number] 10/29/2024 7:28 AM EDT [facility] Comment 10/29/2024 7:28 AM EDT [facility] Comment: ACT performed by staff at [...] UNSOLICITED RESULTS Final Result Performing Organization Address [facility] Co de Phone Number [facility] [address] LAB [address] [place] [address] * Surgical Pathology Exam (10/17/2024 10:27 AM EDT) Case Report Surgical Pathology Case: [id number] Authorizing Provider: Terrell Gautam MD Collected: 10/17/2024 1027 Ordering Location: [facility] OPERATING [facility] Received: 10/17/2024 1325 Pathologist: [...] cm. The specimen is serially sectioned and traveling sales representative sections are submitted in cassette [...] grimaldo Result [facility] [address] [place] [id number] * POCT ACT (10/17/2024 10:03 AM EDT) ACT+ (HIGH RANGE) 244 68 - 600 Seconds 10/29/2024 7:28 AM EDT [facility] Final Touch Up Painter ID Donna Mcmillan 10/29/2024 7:28 AM EDT [facility] ACT Device ID [id number] 10/29/2024 7:28 AM EDT [facility] Comment 10/29/2024 7:28 AM EDT [facility] [...] DEVICE UNSOLICITED RESULTS Final Result [facility] [address] LAB [address] [place] [address] * (ABNORMAL) Blood gas, arterial (10/17/2024 9:45 [...] Re sult [facility] [address] [place] [address] * (ABNORMAL) Blood gas, arterial (10/17/2024 8:47 [...] Re sult [facility] [address] [place] [address] * POCT ACT (10/17/2024 8:46 AM EDT) ACT+ (HIGH RANGE) 101 68 - 600 Seconds 10/29/2024 7:28 AM EDT [facility] Final Touch Up Painter ID Donna Mcmillan 10/29/2024 7:28 AM EDT [facility] ACT Device ID [id number] 10/29/2024 7:28 AM EDT [facility] Comment [...] Final Result [facility] [address] LAB [address] [place] [address] * Type and Screen (10/17/2024 7:19 AM [...] ORDERAB LES Final Result Performing Organization Address [facility] Co de Phone Number BLOOD BANK [address] [place] [address] * (ABNORMAL) POCT glucose meter (10/17/2024 6:44 [...] 10/17/2024 6:49 AM EDT [facility] Final Touch Up Painter ID Hunter Burroughs 10/18/19 6:49 AM EDT [facility] Device ID [id number] 10/17/2024 6:49 AM EDT [facility] Specimen Type POC Capillary 10/17/2024 6:49 AM EDT [facility] Blood Capillary blood specimen / Unknown 10/17/2024 6:44 AM EDT 10/17/2024 6:49 AM EDT us Terrell Gautam MD LAB POINT OF CARE TE ST DOCKED DEVICE UNSOLICITED RESULTS Final Result [facility] [address] [place] [address] documented in this encounter Visit Diagnoses Diagnosis [...] CHRISTIAN)2012 (Given - Provider: Jourdan Grimes II, CHIRSTIAN) 0801 (Given - Provider: Emilia Alonso, CHRISTIAN)2001 [...] Keisha Waller, CHRISTIAN)2302 (Given - Provider: Jourdan Grimse II, RN) 0444 (Given - Provider: Rose [...] documented as of this encounter Care Teams Cell Operation Supervisor Relationship Specialty Start Date End Date Asad Victor MD [address] [place] [id number] PCP - General 10/07/22 documented as of this encounter
--- OUTSIDE RECORDS SUMMARY | 2024-11-05 21:45 | XMS_ITS | Encounter Summary ---
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 LAB HEMATOLOGY METHOD 11/13/2024 6:51 AM EDT [facility] Blood Venous blood specimen / Unknown Venipuncture / Unknown 11/13/2024 6:37 AM EDT 11/13/2024 6:44 AM EDT us Nathaly Nowak MD LAB BLOOD ORDERABLES Final Resu lt [facility] [address] [place] [address] * (ABNORMAL) Basic Metabolic Panel, Plasma (11/13/2024 6:37 AM EDT) Glucose, Plasma 200(H) 74 - 99 mg/dL 11/13/2024 7:16 AM EDT [facility] BUN, Plasma 10 8 - 23 mg/dL 11/13/2024 7:16 AM EDT [facility] Creatinine, Plasma 0.68(L) 0.70 - 1.20 mg/dL 11/13/2024 7:16 AM EDT [facility] BUN/Creatinine Ratio 15 11/13/2024 7:16 AM EDT [facility] Sodium, Plasma 135(L) 136 - 145 mmol/L 11/13/2024 7:16 AM EDT [facility] Potassium, Plasma 3.9 3.6 - 4.9 mmol/L 11/13/2024 7:16 AM EDT [facility] Chloride, Plasma 107 97 - 107 mmol/L 11/13/2024 7:16 AM EDT [facility] CO2, Plasma 21(L) 22 - 29 mmol/L 11/13/2024 7:16 AM EDT [facility] Anion Gap 7 6 - 16 mmol/L 11/13/2024 7:16 AM EDT [facility] Total Calcium, Plasma 8.1(L) 8.9 - 10.2 mg/dL 11/13/2024 7:16 AM EDT [facility] eGFRcr 103.2 mL/min/1.7 3m*2 11/13/2024 7:16 AM EDT [facility] Comment:Reported eGFRcr in m L/min/1.73m2 is based the CKD-EPI 2020 equation that does not use a race coefficient. Blood Venous blood specimen / Unknown Venipuncture / Unknown 11/13/2024 6:37 AM EDT 11/13/2024 6:44 AM EDT us Nathaly Nowak MD LAB BLOOD ORDERABLES Final Resu lt Performing Organization Address [facility] Co de Phone Number [facility] [address] [place] [address] * (ABNORMAL) POCT glucose meter (11/12/2024 8:27 PM EDT) POCT Glucose 175(H) 74 - 99 mg/dL 11/12/2024 8:29 PM EDT [facility] Comment:Accuracy of a glucos e result [...] Comment 11/12/2024 8:29 PM EDT [facility] Multifocal Button Inspector ID Nelda Gerber 11/13/19 8:29 PM EDT [facility]ARE LAB Device ID [id number] 11/12/2024 8:29 PM EDT [facility] Specimen Type POC Capillary 11/12/2024 8:29 PM EDT [facility] Blood Capillary blood specimen / Unknown 11/12/2024 8:27 PM EDT 11/12/2024 8:29 PM EDT us Nathaly Nowak MD LAB POINT OF CARE TE ST DOCKED DEVICE UNSOLICITED RESULTS Final Result Performing Organization Address City/[facility] Co de Phone Number [facility]ARE [facility] [address] [place] [address] * (ABNORMAL) POCT glucose meter (11/12/2024 5:08 PM EDT) [facility] POCT Glucose 157(H) 74 - 99 [...] 11/12/2024 5:10 PM EDT [facility] Multifocal Button Inspector ID Wade Feliciano 5:10 PM EDT [facility] Device ID [id number] 11/12/2024 5:10 PM EDT [facility] Specimen Type POC Capillary 11/12/2024 5:10 PM EDT [facility] Blood Capillary blood specimen / Unknown 11/12/2024 5:08 PM EDT 11/12/2024 5:10 PM EDT Nathaly Nowak MD LAB POINT OF CARE TE ST DOCKED DEVICE UNSOLICITED RESULTS Final Result Performing Organization Address City/State/[facility] Co de Phone Number [facility]ARE [facility] [address] [place] [address] * (ABNORMAL) POCT glucose meter (11/12/2024 12:36 PM EDT) [facility] POCT Glucose 224(H) 74 - 99 [...] 11/12/2024 12:38 PM EDT [facility] Multifocal Button Inspector ID Wade Feliciano 12:38 PM EDT [facility] Device ID [id number] 11/12/2024 12:38 PM EDT [facility] Specimen Type POC Capillary 11/12/2024 12:38 PM EDT [facility] Blood Capillary blood specimen / Unknown 11/12/2024 12:36 PM EDT 11/12/2024 12:38 PM EDT Nathaly Nowak MD LAB POINT OF CARE TE ST DOCKED DEVICE UNSOLICITED RESULTS Final Result Performing Organization Address City/[facility]/ZIP Co de Phone Number [facility]ALTHCARE [facility] [address] [place] [address] * Clostridiodes (Clostridium) difficile PCR (11/12/2024 9:50 AM EDT) C difficile PCR toxin B gene DNA Result Not Detected Not Detected 11/12/2024 11:[address] [facility] Stool Rectum structure / Unknown Non-blood Collection / Unknown 11/12/2024 9:50 AM EDT 11/12/2024 10:04 AM EDT Narrative [facility] - 11/12/2024 11:54 AM [...] Nathaly Nowak MD LAB MICROBIOLOGY - [facility] Final Result [facility] [address] [place] [address] * Comprehensive GI Panel by PCR (11/12/2024 9:50 AM EDT) Campylobacter PCR Result Not Detected Not Detected 11/12/2024 2:47 PM EDT [facility] Plesiomonas shigelloides PCR Result Not Detected Not Detected 11/12/2024 2:47 PM EDT [facility] Salmonella PCR Result Not Detected Not Detected 11/12/2024 2:47 PM EDT [facility] Vibrio species PCR Result Not Detected Not Detected 11/12/2024 2:47 PM EDT [facility] Vibrio cholerae PCR Result Not Detected Not Detected 11/12/2024 2:47 PM EDT [facility] Yersinia enterocolitica PCR Result Not Detected Not Detected 11/12/2024 2:47 PM EDT [facility] Enteroaggregative E. coli (EAEC) PCR Result Not Detected Not Detected 11/12/2024 2:47 PM EDT [facility] Enteropathogenic E. coli (EPEC) PCR Result Not Detected Not Detected 11/12/2024 2:47 PM EDT [facility] Enterotoxigenic E. coli (ETEC) lt/st PCR Result Not Detected Not Detected 11/12/2024 2:47 PM EDT [facility] Shiga-like Toxin-Producing E.coli (STEC) stx1/stx2 PCR Resu Not Detected Not Detected 11/12/2024 2:47 PM EDT [facility] E coli 0157 PCR Result Not Detected Not Detected 11/12/2024 2:47 PM EDT [facility] Shigella/Enteroinvas tam E. coli (EIEC) PCR Result Not Detected Not Detected 11/12/2024 2:47 PM EDT [facility] Cryptosporidium PCR Result Not Detected Not Detected 11/12/2024 2:47 PM EDT [facility] Cyclospora cayetanensis PCR Result Not Detected Not Detected 11/12/2024 2:47 PM EDT [facility] Entamoeba histolytica PCR Result Not Detected Not Detected 11/12/2024 2:47 PM EDT [facility] Giardia duodenalis (aka Giardia lamblia) PCR Result Not Detected Not Detected 11/12/2024 2:47 PM EDT [facility] Adenovirus F 40/41 PCR Result Not Detected Not Detected 11/12/2024 2:47 PM EDT [facility] Astrovirus PCR Result Not Detected Not Detected 11/12/2024 2:47 PM EDT [facility] Norovirus GI/GII PCR Result Not Detected Not Detected 11/12/2024 2:47 PM EDT [facility] Rotavirus A PCR Result Not Detected Not Detected 11/12/2024 2:47 PM EDT [facility] Sapovirus PCR Result Not Detected Not Detected 11/12/2024 2:[address] [facility] Stool Rectum structure / Unknown Non-blood Collection / Unknown 11/12/2024 9:50 AM EDT 11/12/2024 10:04 AM EDT Narrative [facility] - 11/12/2024 2:47 PM [...] us Nathaly Nowak MD LAB MICROBIOLOGY - [facility] Final Result Performing Organization Address City/[facility]/ZIP Co de Phone Number [facility] [address] [place] [address] * C-reactive protein (11/12/2024 9:48 AM EDT) CRP, Plasma <3.0 <=8.0 mg/L 11/12/2024 10:[address] [facility] Blood Venous blood specimen / Unknown Venipuncture / Unknown 11/12/2024 9:48 AM EDT 11/12/2024 9:59 AM EDT Narrative [facility] - 11/12/2024 10:28 AM EDT This CRP test is appropriate for assessment of infection, systemic inflammation and/or tissue injury. To assess cardiovascular disease risk order high sensitivity CRP (CRPH). us Nathaly Nowak MD LAB BLOOD ORDERABLES Final Resu lt [facility] [address] [place] [address] * (ABNORMAL) POCT glucose meter (11/12/2024 8:20 AM EDT) [facility] POCT Glucose 138(H) 74 - 99 [...] Comment 11/12/2024 8:21 AM EDT [facility] Multifocal Button Inspector ID Wade Feliciano 8:21 AM EDT [facility] Device ID [id number] 11/12/2024 8:21 AM EDT [facility] Specimen Type POC Capillary 11/12/2024 8:21 AM EDT [facility] Blood Capillary blood specimen / Unknown 11/12/2024 8:20 AM EDT 11/12/2024 8:21 AM EDT Nathaly Nowak MD LAB POINT OF CARE TE ST DOCKED DEVICE UNSOLICITED RESULTS Final Result [facility] [address] [place] [address] * (ABNORMAL) POCT glucose meter (11/11/2024 8:18 PM EDT) [facility] POCT Glucose 248(H) 74 - 99 [...] 11/11/2024 8:20 PM EDT [facility] Multifocal Button Inspector ID Nelda Gerber 11/12/19 8:20 PM EDT [facility] Device ID [id number] 11/11/2024 8:20 PM EDT [facility]ARE [facility] Specimen Type POC Capillary 11/11/2024 8:20 PM EDT [facility] Blood Capillary blood specimen / Unknown 11/11/2024 8:18 PM EDT 11/11/2024 8:20 PM EDT Nathaly Nowak MD LAB POINT OF CARE TE ST DOCKED DEVICE UNSOLICITED RESULTS Final Result Performing Organization Address City/[facility] Co de Phone Number [facility] [address] [place] [address] * (ABNORMAL) POCT glucose meter (11/11/2024 5:59 [...] 11/11/2024 6:01 PM EDT [facility] Multifocal Button Inspector ID Wade Feliciano Tobias 6:01 PM EDT HEALTHCARE LAB Device ID [id number] 11/11/2024 6:01 PM EDT [facility] Specimen Type POC Capillary 11/11/2024 6:01 PM EDT [facility] Blood Capillary blood specimen / Unknown 11/11/2024 5:59 PM EDT 11/11/2024 6:01 PM EDT us Nathaly Nowak MD LAB POINT OF CARE TE ST DOCKED DEVICE UNSOLICITED RESULTS Final Result Performing Organization Address City/[facility] Co de Phone Number [facility]ARE [facility] [address] [place] [address] * POCT glucose meter (11/11/2024 5:20 PM [...] Comment 11/11/2024 5:22 PM EDT [facility] Multifocal Button Inspector ID Wade Feliciano 5:22 PM EDT [facility] LAB Device ID [id number] 11/11/2024 5:22 PM EDT [facility] Specimen Type POC Capillary 11/11/2024 5:22 PM EDT [facility] Blood Capillary blood specimen / Unknown 11/11/2024 5:20 PM EDT 11/11/2024 5:22 PM EDT us Nathaly Nowak MD LAB POINT OF CARE TE ST DOCKED DEVICE UNSOLICITED RESULTS Final Result Performing Organization Address City/State/[facility] Co de Phone Number [facility]ARE [facility] [address] [place] [address] * [place] NEGATIVE PRESSURE WOUND THERAPY DME >50 SQ [...] POCT glucose meter (11/11/2024 12:08 PM EDT) [facility] POCT Glucose 226(H) 74 - 99 [...] Comment 11/11/2024 12:10 PM EDT [facility] Multifocal Button Inspector ID Wade Feliciano 12:10 PM EDT [facility]ALTH[facility]ARE LAB Device ID [id number] 11/11/2024 12:10 PM EDT [facility] Specimen Type POC Capillary 11/11/2024 12:10 PM EDT [employer] [facility] Blood Capillary blood specimen / Unknown 11/11/2024 12:08 PM EDT 11/11/2024 12:10 PM EDT us Nathaly Nowak MD LAB POINT OF CARE TE ST DOCKED DEVICE UNSOLICITED RESULTS Final Result Performing Organization Address City/State/[facility] Co de Phone Number [facility] [address] [place] [address] * (ABNORMAL) POCT glucose meter (11/11/2024 9:08 AM EDT) [facility] POCT Glucose 162(H) 74 - 99 [...] 11/11/2024 9:09 AM EDT [facility] Multifocal Button Inspector ID Wade Feliciano 9:09 AM EDT [facility]ALTH[facility]ARE LAB Device ID [id number] 11/11/2024 9:09 AM EDT [facility] Specimen Type POC Capillary 11/11/2024 9:09 AM EDT [facility] Blood Capillary blood specimen / Unknown 11/11/2024 9:08 AM EDT 11/11/2024 9:09 AM EDT Nathaly Nowak MD LAB POINT OF CARE TE ST DOCKED DEVICE UNSOLICITED RESULTS Final Result Performing Organization Address [facility] Co de Phone Number [facility] [address] [place] [address] * POCT glucose meter (11/11/2024 8:27 AM [...] Comment 11/11/2024 8:28 AM EDT [facility] Multifocal Button Inspector ID Wade Feliciano 8:28 AM EDT [facility]ALTH[facility]ARE LAB Device ID [id number] 11/11/2024 8:28 AM EDT [facility] Specimen Type POC Capillary 11/11/2024 8:28 AM EDT [facility] Blood Capillary blood specimen / Unknown 11/11/2024 8:27 AM EDT 11/11/2024 8:28 AM EDT Nathaly Nowak MD LAB POINT OF CARE TE ST DOCKED DEVICE UNSOLICITED RESULTS Final Result Performing Organization Address City/[facility] Co de Phone Number [facility] [address] [place] [address] * (ABNORMAL) Basic Metabolic Panel, Plasma (11/11/2024 1:12 AM EDT) Glucose, Plasma 122(H) 74 - 99 mg/dL 11/11/2024 1:12 AM EDT [facility] BUN, Plasma 10 8 - 23 mg/dL 11/11/2024 1:12 AM EDT [facility] Creatinine, Plasma 0.82 0.70 - 1.20 mg/dL 11/11/2024 1:12 AM EDT [facility] BUN/Creatinine Ratio 12 11/11/2024 1:12 AM EDT [facility] Sodium, Plasma 137 136 - 145 mmol/L 11/11/2024 1:12 AM EDT [facility] Potassium, Plasma 3.9 3.6 - 4.9 mmol/L 11/11/2024 1:12 AM EDT [facility] Chloride, Plasma 110(H) 97 - 107 mmol/L 11/11/2024 1:12 AM EDT [facility] CO2, Plasma 20(L) 22 - 29 mmol/L 11/11/2024 1:12 AM EDT [facility] Anion Gap 7 6 - 16 mmol/L 11/11/2024 1:12 AM EDT [facility] Total Calcium, Plasma 7.6(L) 8.9 - 10.2 mg/dL 11/11/2024 1:12 AM EDT [facility] eGFRcr 97.5 mL/min/1.7 3m*2 11/11/2024 1:12 AM EDT [facility] Comment:Reported eGFRcr in m L/min/1.73m2 is based the CKD-EPI 2020 equation that does not use a race coefficient. Blood Venous blood specimen / Unknown 11/11/2024 12:42 AM EDT us Nathaly Nowak MD LAB BLOOD ORDERABLES Final Resu lt [facility] [address] [place] [address] * (ABNORMAL) CBC W/O Differential (11/11/2024 12:56 AM EDT) WBC Count 11.83(H) 3.70 - 10.30 10*3/uL LAB HEMATOLOGY METHOD 11/11/2024 12:56 AM EDT [facility] RBC Count 2.97(L) 4.60 - 6.10 10*6/uL LAB HEMATOLOGY METHOD 11/11/2024 12:56 AM EDT [facility] HGB 8.9(L) 13.7 - 17.5 g/dL LAB HEMATOLOGY METHOD 11/11/2024 12:56 AM EDT [facility] HCT 27.2(L) 40.0 - 51.0 % LAB HEMATOLOGY METHOD 11/11/2024 12:56 AM EDT [facility] Platelet Count 444(H) 155 - 369 10*3/uL LAB HEMATOLOGY METHOD 11/11/2024 12:56 AM EDT [facility] MCV 92 79 - 98 fL LAB HEMATOLOGY METHOD 11/11/2024 12:56 AM EDT [facility] MCH 30.0 26.0 - 32.0 pg LAB HEMATOLOGY METHOD 11/11/2024 12:56 AM EDT [facility] MCHC 32.7 30.7 - 35.5 g/dL LAB HEMATOLOGY METHOD 11/11/2024 12:56 AM EDT [facility] RDW 13.3 11.5 - 14.5 % LAB HEMATOLOGY METHOD 11/11/2024 12:56 AM EDT [facility] MPV 9.0 8.8 - 12.5 fL LAB HEMATOLOGY METHOD 11/11/2024 12:56 AM EDT [facility] nRBC 0.0 <=0.0 per 100 WBCs LAB HEMATOLOGY METHOD 11/11/2024 12:56 AM EDT [facility] Blood Venous blood specimen / Unknown 11/11/2024 12:42 AM EDT us Nathaly Nowak MD LAB BLOOD ORDERABLES Final Resu lt [facility] [address] [place] [address] * (ABNORMAL) POCT glucose meter (11/10/2024 8:25 PM EDT) POCT Glucose 144(H) 74 - 99 mg/dL 11/10/2024 8:28 PM EDT [facility] Comment:Accuracy of a glucos e [...] 11/10/2024 8:28 PM EDT [facility] Multifocal Button Inspector ID Nelda Gerber 11/11/19 8:28 PM EDT [facility] Device ID [id number] 11/10/2024 8:28 PM EDT [facility] Specimen Type POC Capillary 11/10/2024 8:28 PM EDT [facility] Blood Capillary blood specimen / Unknown 11/10/2024 8:25 PM EDT 11/10/2024 8:28 PM EDT us Nathaly Nowak MD LAB POINT OF CARE TE ST DOCKED DEVICE UNSOLICITED RESULTS Final Result Performing Organization Address [facility] de Phone Number [facility]ALTH[facility]ARE [facility] [address] [place] [address] * (ABNORMAL) POCT glucose meter (11/10/2024 4:45 PM EDT) [facility] POCT Glucose 155(H) 74 - [...] 11/10/2024 4:47 PM EDT [facility] Multifocal Button Inspector ID Esperanza Parks 11/10/2024 4:47 PM EDT HEALTHCARE LAB Device ID [id number] 11/10/2024 4:47 PM EDT [facility] Specimen Type POC Capillary 11/10/2024 4:47 PM EDT [facility] Blood Capillary blood specimen / Unknown 11/10/2024 4:45 PM EDT 11/10/2024 4:47 PM EDT us Nathaly Nowak MD LAB POINT OF CARE TE ST DOCKED DEVICE UNSOLICITED RESULTS Final Result Performing Organization Address City/[facility] Co de Phone Number [facility] [address] [place] [address] * (ABNORMAL) POCT glucose meter (11/10/2024 12:13 [...] Comment 11/10/2024 12:14 PM EDT [facility] Multifocal Button Inspector ID Esperanza Parks 11/10/2024 12:14 PM EDT HEALTH[facility]ARE LAB Device ID [id number] 11/10/2024 12:14 PM EDT [facility]ALTH[facility]ARE [facility] Specimen Type POC Capillary 11/10/2024 12:14 PM EDT [facility] Blood Capillary blood specimen / Unknown 11/10/2024 12:13 PM EDT 11/10/2024 12:14 PM EDT us Nathaly Nowak MD LAB POINT OF CARE TE ST DOCKED DEVICE UNSOLICITED RESULTS Final Result [facility] [address] [place] [address] * Vancomycin, Peak, Plasma Please draw ~2 hours after 0800 dose of vancomycin finishes infusing. Consider obtaining level via peripheral stick. If peripheral stick is not feasible, please ensure that line is flushed well prior to drawing level. Than... (11/10/2024 10:56 AM EDT) Pathologist [facility] Vancomycin, Peak, Plasma 23.8 20.0 - 40.0 ug/mL 11/10/2024 11:25 AM EDT [facility] Blood Venous blood specimen / Unknown Venipuncture / Unknown 11/10/2024 10:56 AM EDT 11/10/2024 11:00 AM EDT Narrative [facility] - 11/10/2024 11:25 AM EDT Therapeutic Peak level: 20-40ug/mL Supra-therapeutic Peak level: >40 ug/mL us Abigail Seay MD LAB BLOOD ORDERABLES Final Res ult [facility] [address] [place] [address] * (ABNORMAL) POCT glucose meter (11/10/2024 8:03 [...] Comment 11/10/2024 8:04 AM EDT [facility]ALTH[facility]ARE [facility] Multifocal Button Inspector ID Esperanza Parks 11/10/2024 8:04 AM EDT [employer] [facility] Device ID [id number] 11/10/2024 8:04 AM EDT [facility] Specimen Type POC Capillary 11/10/2024 8:04 AM EDT [facility] Blood Capillary blood specimen / Unknown 11/10/2024 8:03 AM EDT 11/10/2024 8:04 AM EDT us Nathaly Nowak MD LAB POINT OF CARE TE ST DOCKED DEVICE UNSOLICITED RESULTS Final Result Performing Organization Address City/[facility]/ZIP Co de Phone Number [facility] [address] [place] [address] * Vancomycin, Trough, Plasma Please draw ~30 [...] AM EDT 11/10/2024 7:51 AM EDT Narrative [facility] - 11/10/2024 8:24 AM EDT Therapeutic Trough level: 10-20ug/mL Supra-therapeutic Trough level: >20 ug/mL us Abigail Seay MD LAB BLOOD ORDERABLES Final Res ult [facility] [address] [place] [address] * (ABNORMAL) CBC and Differential (11/10/2024 12:31 AM EDT) WBC Count 10.80(H) 3.70 - 10.30 10*3/uL LAB HEMATOLOGY METHOD 11/10/2024 12:53 AM EDT [facility] RBC Count 3.06(L) 4.60 - 6.10 10*6/uL LAB HEMATOLOGY METHOD 11/10/2024 12:53 AM EDT [facility] HGB 9.1(L) 13.7 - 17.5 g/dL LAB HEMATOLOGY METHOD 11/10/2024 12:53 AM EDT [facility] HCT 28.0(L) 40.0 - 51.0 % LAB HEMATOLOGY METHOD 11/10/2024 12:53 AM EDT [facility] Platelet Count 501(H) 155 - 369 10*3/uL LAB HEMATOLOGY METHOD 11/10/2024 12:53 AM EDT [facility] MCV 92 79 - 98 fL LAB HEMATOLOGY METHOD 11/10/2024 12:53 AM EDT [facility] MCH 29.7 26.0 - 32.0 pg LAB HEMATOLOGY METHOD 11/10/2024 12:53 AM EDT [facility] MCHC 32.5 30.7 - 35.5 g/dL LAB HEMATOLOGY METHOD 11/10/2024 12:53 AM EDT [facility] RDW 13.2 11.5 - 14.5 % LAB HEMATOLOGY METHOD 11/10/2024 12:53 AM EDT [facility] MPV 8.8 8.8 - 12.5 fL LAB HEMATOLOGY METHOD 11/10/2024 12:53 AM EDT [facility] nRBC 0.0 <=0.0 per 100 WBCs LAB HEMATOLOGY METHOD 11/10/2024 12:53 AM EDT [facility] Differential Type Automated LAB HEMATOLOGY METHOD 11/10/2024 12:53 AM EDT [facility] Neutrophils % 77 % LAB HEMATOLOGY METHOD 11/10/2024 12:53 AM EDT [facility] Lymphocytes % 13 % LAB HEMATOLOGY METHOD 11/10/2024 12:53 AM EDT [facility] Monocytes % 8 % LAB HEMATOLOGY METHOD 11/10/2024 12:53 AM EDT [facility] Eosinophils % 1 % LAB HEMATOLOGY METHOD 11/10/2024 12:53 AM EDT [facility] Basophils % 0 % LAB HEMATOLOGY METHOD 11/10/2024 12:53 AM EDT [facility] Immature Granulocytes % 1 % LAB HEMATOLOGY METHOD 11/10/2024 12:53 AM EDT [facility] Neutrophils Absolute 8.32(H) 1.60 - 6.10 10*3/uL LAB HEMATOLOGY METHOD 11/10/2024 12:53 AM EDT [facility] Lymphocytes Absolute 1.40 1.20 - 3.90 10*3/uL LAB HEMATOLOGY METHOD 11/10/2024 12:53 AM EDT [facility] Monocytes Absolute 0.89 0.30 - 0.90 10*3/uL LAB HEMATOLOGY METHOD 11/10/2024 12:53 AM EDT [facility] Eosinophils Absolute 0.09 0.00 - 0.50 10*3/uL LAB HEMATOLOGY METHOD 11/10/2024 12:53 AM EDT [facility] Basophils Absolute 0.04 0.00 - 0.10 10*3/uL LAB HEMATOLOGY METHOD 11/10/2024 12:53 AM EDT [facility] Immature Granulocytes Absolute 0.06 0.00 - 0.06 10*3/uL LAB HEMATOLOGY METHOD 11/10/2024 12:53 AM EDT [facility] Blood Venous blood specimen / Unknown Venipuncture / Unknown 11/10/2024 12:31 AM EDT 11/10/2024 12:37 AM [facility]T [facility] 11/10/2024 12:53 AM EDT Therapeutic decision making should be based on absolute values, rather than percentages. us Nathaly Nowak MD LAB BLOOD ORDERABLES Final Resu lt [facility] [address] [place] [address] * (ABNORMAL) Comprehensive Metabolic Panel, Plasma (11/10/2024 12:31 AM EDT) Glucose, Plasma 185(H) 74 - 99 mg/dL 11/10/2024 1:05 AM EDT [facility] BUN, Plasma 9 8 - 23 mg/dL 11/10/2024 1:05 AM EDT [facility] Creatinine, Plasma 0.72 0.70 - 1.20 mg/dL 11/10/2024 1:05 AM EDT [facility] BUN/Creatinine Ratio 13 11/10/2024 1:05 AM EDT [facility] Sodium, Plasma 135(L) 136 - 145 mmol/L 11/10/2024 1:05 AM EDT [facility] Potassium, Plasma 4.0 3.6 - 4.9 mmol/L 11/10/2024 1:05 AM EDT [facility] Chloride, Plasma 106 97 - 107 mmol/L 11/10/2024 1:05 AM EDT [facility] CO2, Plasma 19(L) 22 - 29 mmol/L 11/10/2024 1:05 AM EDT [facility] Anion Gap 10 6 - 16 mmol/L 11/10/2024 1:05 AM EDT [facility] Total Calcium, Plasma 7.8(L) 8.9 - 10.2 mg/dL 11/10/2024 1:05 AM EDT [facility] Total Protein 5.6(L) 6.3 - 7.9 g/dL 11/10/2024 1:05 AM EDT [facility] Albumin, Plasma 3.1(L) 3.5 - 5.2 g/dL 11/10/2024 1:05 AM EDT [facility] AST, Plasma 33 10 - 50 U/L 11/10/2024 1:05 AM EDT [facility] ALT, Plasma 25 10 - 50 U/L 11/10/2024 1:05 AM EDT [facility] Alkaline Phosphatase, Plasma 108 40 - 115 U/L 11/10/2024 1:05 AM EDT [facility] Total Bilirubin, Plasma <0.2(L) 0.2 - 1.1 mg/dL 11/10/2024 1:05 AM EDT [facility] eGFRcr 101.4 mL/min/1.7 3m*2 11/10/2024 1:05 AM EDT [facility] Comment:Reported eGFRcr in m L/min/1.73m2 is based the CKD-EPI 2020 equation that does not use a race coefficient. Blood Venous blood specimen / Unknown Venipuncture / Unknown 11/10/2024 12:31 AM EDT 11/10/2024 12:37 AM EDT us Nathaly Nowak MD LAB BLOOD ORDERABLES Final Resu lt [facility] [address] [place] [address] * (ABNORMAL) POCT glucose meter (11/09/2024 8:04 [...] Comment 11/09/2024 8:06 PM EDT [facility] Multifocal Button Inspector ID Maximiliano Hansen II 11/09/2024 8:06 PM EDT [facility] Device ID [id number] 11/09/2024 8:06 PM EDT [facility] Specimen Type POC Capillary 11/09/2024 8:06 PM EDT [facility] Blood Capillary blood specimen / Unknown 11/09/2024 8:04 PM EDT 11/09/2024 8:06 PM EDT Nathaly Nowak MD LAB POINT OF CARE TE ST DOCKED DEVICE UNSOLICITED RESULTS Final Result Performing Organization Address [facility] de Phone Number [facility] [address] [place] [address] * (ABNORMAL) POCT glucose meter (11/09/2024 4:36 [...] Comment 11/09/2024 4:38 PM EDT [facility] Multifocal Button Inspector ID Kristian Sosa 11/09/2024 4:38 PM EDT [facility] Device ID [id number] 11/09/2024 4:38 PM EDT [facility] Specimen Type POC Capillary 11/09/2024 4:38 PM EDT [facility] Blood Capillary blood specimen / Unknown 11/09/2024 4:36 PM EDT 11/09/2024 4:38 PM EDT us Nathaly Nowak MD LAB POINT OF CARE TE ST DOCKED DEVICE UNSOLICITED RESULTS Final Result Performing Organization Address City/[facility] Co de Phone Number [facility] [address] [place] [address] * PICC SINGLE LUMEN ([employer] LINK) (11/09/2024 1:11 PM EDT) Narrative Estefani Barraza RN - 11/09/2024 1:11 PM EDT Estefani Barraza RN 11/09/2024 1:12 PM Insert PICC line Date/Time: 11/09/2024 1:11 PM Performed by: Estefani Barraza RN Authorized by: Nathaly Nowak MD [place] Protocol: Verbal consent obtained?: Yes Written consent [...] selection rationale: Left pacemaker Catheter Lot #: [id number] Catheter beef cattle specialist: MoPub Catheter placed: Single lumen Catheter size: 4 [...] - 99 mg/dL 11/09/2024 11:51 AM EDT [facility] Comment:Accuracy of a glucos e result [...] 11/09/2024 11:51 AM EDT [facility] Multifocal Button Inspector Kristian Greco 11/09/2024 11:51 AM EDT [facility] Device ID [id number] 11/09/2024 11:51 AM EDT [facility] Specimen Type POC Capillary 11/09/2024 11:51 AM EDT [facility] Blood Capillary blood specimen / Unknown 11/09/2024 11:50 AM EDT 11/09/2024 11:51 AM EDT Nathaly Nowak MD LAB POINT OF CARE TE ST DOCKED DEVICE UNSOLICITED RESULTS Final Result Performing Organization Address City/[facility]/ZIP Co de Phone Number [facility] [address] [place] [address] * (ABNORMAL) POCT glucose meter (11/09/2024 8:14 AM EDT) [facility] POCT Glucose 153(H) 74 - 99 [...] Comment 11/09/2024 8:15 AM EDT [facility] Multifocal Button Inspector ID Kristian Sosa 11/09/2024 8:15 AM EDT [facility] Device ID [id number] 11/09/2024 8:15 AM EDT [facility] Specimen Type POC Capillary 11/09/2024 8:15 AM EDT [facility] Blood Capillary blood specimen / Unknown 11/09/2024 8:14 AM EDT 11/09/2024 8:15 AM EDT us Nathaly Nowak MD LAB POINT OF CARE TE ST DOCKED DEVICE UNSOLICITED RESULTS Final Result Performing Organization Address City/[facility]/ZIP Co de Phone Number [facility] [address] [place] [address] * (ABNORMAL) CBC and Differential (11/09/2024 4:15 AM EDT) [facility] WBC Count 10.27 3.70 - 10.30 10*3/uL LAB HEMATOLOGY METHOD 11/09/2024 4:26 AM EDT [facility] RBC Count 3.14(L) 4.60 - 6.10 10*6/uL LAB HEMATOLOGY METHOD 11/09/2024 4:26 AM EDT [facility] HGB 9.2(L) 13.7 - 17.5 g/dL LAB HEMATOLOGY METHOD 11/09/2024 4:26 AM EDT [facility] HCT 28.3(L) 40.0 - 51.0 % LAB HEMATOLOGY METHOD 11/09/2024 4:26 AM EDT [facility] Platelet Count 468(H) 155 - 369 10*3/uL LAB HEMATOLOGY METHOD 11/09/2024 4:26 AM EDT [facility] MCV 90 79 - 98 fL LAB HEMATOLOGY METHOD 11/09/2024 4:26 AM EDT [facility] MCH 29.3 26.0 - 32.0 pg LAB HEMATOLOGY METHOD 11/09/2024 4:26 AM EDT [facility] MCHC 32.5 30.7 - 35.5 g/dL LAB HEMATOLOGY METHOD 11/09/2024 4:26 AM EDT [facility] RDW 13.1 11.5 - 14.5 % LAB HEMATOLOGY METHOD 11/09/2024 4:26 AM EDT [facility] MPV 8.7(L) 8.8 - 12.5 fL LAB HEMATOLOGY METHOD 11/09/2024 4:26 AM EDT [facility] nRBC 0.0 <=0.0 per 100 WBCs LAB HEMATOLOGY METHOD 11/09/2024 4:26 AM EDT [facility] Differential Type Automated LAB HEMATOLOGY METHOD 11/09/2024 4:26 AM EDT [facility] Neutrophils % 77 % LAB HEMATOLOGY METHOD 11/09/2024 4:26 AM EDT [facility] Lymphocytes % 13 % LAB HEMATOLOGY METHOD 11/09/2024 4:26 AM EDT [facility] Monocytes % 8 % LAB HEMATOLOGY METHOD 11/09/2024 4:26 AM EDT [facility] Eosinophils % 1 % LAB HEMATOLOGY METHOD 11/09/2024 4:26 AM EDT [facility] Basophils % 0 % LAB HEMATOLOGY METHOD 11/09/2024 4:26 AM EDT [facility] Immature Granulocytes % 1 % LAB HEMATOLOGY METHOD 11/09/2024 4:26 AM EDT [facility] Neutrophils Absolute 7.97(H) 1.60 - 6.10 10*3/uL LAB HEMATOLOGY METHOD 11/09/2024 4:26 AM EDT [facility] Lymphocytes Absolute 1.32 1.20 - 3.90 10*3/uL LAB HEMATOLOGY METHOD 11/09/2024 4:26 AM EDT [facility] Monocytes Absolute 0.83 0.30 - 0.90 10*3/uL LAB HEMATOLOGY METHOD 11/09/2024 4:26 AM EDT [facility] Eosinophils Absolute 0.07 0.00 - 0.50 10*3/uL LAB HEMATOLOGY METHOD 11/09/2024 4:26 AM EDT [facility] Basophils Absolute 0.03 0.00 - 0.10 10*3/uL LAB HEMATOLOGY METHOD 11/09/2024 4:26 AM EDT [facility] Immature Granulocytes Absolute 0.05 0.00 - 0.06 10*3/uL LAB HEMATOLOGY METHOD 11/09/2024 4:26 AM EDT [facility] Blood Venous blood specimen / Unknown Venipuncture / Unknown 11/09/2024 4:15 AM EDT 11/09/2024 4:18 AM EDT Narrative [facility] - 11/09/2024 4:26 AM EDT Therapeutic decision making should be based on absolute values, rather than percentages. us Nathaly Nowak MD LAB BLOOD ORDERABLES Final Resu lt [facility] [address] [place] [address] * (ABNORMAL) Comprehensive Metabolic Panel, Plasma (11/09/2024 4:15 AM EDT) Glucose, Plasma 171(H) 74 - 99 mg/dL 11/09/2024 4:47 AM EDT [facility] BUN, Plasma 9 8 - 23 mg/dL 11/09/2024 4:47 AM EDT [facility] Creatinine, Plasma 0.67(L) 0.70 - 1.20 mg/dL 11/09/2024 4:47 AM EDT [facility] BUN/Creatinine Ratio 13 11/09/2024 4:47 AM EDT [facility] Sodium, Plasma 134(L) 136 - 145 mmol/L 11/09/2024 4:47 AM EDT [facility] Potassium, Plasma 4.1 3.6 - 4.9 mmol/L 11/09/2024 4:47 AM EDT [facility] Chloride, Plasma 104 97 - 107 mmol/L 11/09/2024 4:47 AM EDT [facility] CO2, Plasma 21(L) 22 - 29 mmol/L 11/09/2024 4:47 AM EDT [facility] Anion Gap 9 6 - 16 mmol/L 11/09/2024 4:47 AM EDT [facility] Total Calcium, Plasma 8.4(L) 8.9 - 10.2 mg/dL 11/09/2024 4:47 AM EDT [facility] Total Protein 5.8(L) 6.3 - 7.9 g/dL 11/09/2024 4:47 AM EDT [facility] Albumin, Plasma 3.2(L) 3.5 - 5.2 g/dL 11/09/2024 4:47 AM EDT [facility] AST, Plasma 18 10 - 50 U/L 11/09/2024 4:47 AM EDT [facility] ALT, Plasma 17 10 - 50 U/L 11/09/2024 4:47 AM EDT [facility] Alkaline Phosphatase, Plasma 110 40 - 115 U/L 11/09/2024 4:47 AM EDT [facility] Total Bilirubin, Plasma <0.2(L) 0.2 - 1.1 mg/dL 11/09/2024 4:47 AM EDT [facility] eGFRcr 103.6 mL/min/1.7 3m*2 11/09/2024 4:47 AM EDT [facility] Comment:Reported eGFRcr in m L/min/1.73m2 is based the CKD-EPI 2020 equation that does not use a race coefficient. Blood Venous blood specimen / Unknown Venipuncture / Unknown 11/09/2024 4:15 AM EDT 11/09/2024 4:18 AM EDT Nathaly Nowak MD LAB BLOOD ORDERABLES Final Resu lt Performing Organization Address City/[facility] Co de Phone Number [facility] [address] [place] [address] * (ABNORMAL) POCT glucose meter (11/09/2024 3:30 [...] for testing. Comment 11/09/2024 3:31 AM EDT [facility] Multifocal Button Inspector ID Maximiliano Hansen II 11/09/2024 3:31 AM EDT [facility] Device ID [id number] 11/09/2024 3:31 AM EDT [facility] Specimen Type POC Capillary 11/09/2024 3:31 AM EDT [facility] Blood Capillary blood specimen / Unknown 11/09/2024 3:30 AM EDT 11/09/2024 3:31 AM EDT Nathaly Nowak MD LAB POINT OF CARE TE ST DOCKED DEVICE UNSOLICITED RESULTS Final Result Performing Organization Address City/[facility]/ZIP Co de Phone Number [facility] [address] [place] [address] * (ABNORMAL) POCT glucose meter (11/08/2024 7:21 [...] Comment 11/08/2024 7:22 PM EDT [facility] Multifocal Button Inspector ID Maximiliano Hansen II 11/08/2024 7:22 PM EDT [facility] Device ID [id number] 11/08/2024 7:22 PM EDT [facility] Specimen Type POC Capillary 11/08/2024 7:22 PM EDT [facility] Blood Capillary blood specimen / Unknown 11/08/2024 7:21 PM EDT 11/08/2024 7:22 PM EDT Nathaly Nowak MD LAB POINT OF CARE TE ST DOCKED DEVICE UNSOLICITED RESULTS Final Result Performing Organization Address City/State/[facility] Co de Phone Number [facility] [address] [place] [address] * (ABNORMAL) POCT glucose meter (11/08/2024 5:12 PM EDT) [facility] POCT Glucose 178(H) 74 - 99 [...] Comment 11/08/2024 5:14 PM EDT [facility] Multifocal Button Inspector ID Estefani Sheth 11/08/2024 5:14 PM EDT [facility] Device ID [id number] 11/08/2024 5:14 PM EDT [facility] Specimen Type POC Capillary 11/08/2024 5:14 PM EDT [facility] Blood Capillary blood specimen / Unknown 11/08/2024 5:12 PM EDT 11/08/2024 5:14 PM EDT Nathaly Nowak MD LAB POINT OF CARE TE ST DOCKED DEVICE UNSOLICITED RESULTS Final Result Performing Organization Address [facility] Co de Phone Number [facility] [address] [place] [address] * (ABNORMAL) POCT glucose meter (11/08/2024 12:03 [...] for testing. Comment 11/08/2024 12:05 PM EDT [facility] Multifocal Button Inspector ID Estefani Sheth 11/08/2024 12:05 PM EDT [facility] Device ID [id number] 11/08/2024 12:05 PM EDT [facility] Specimen Type POC Capillary 11/08/2024 12:05 PM EDT [facility] Blood Capillary blood specimen / Unknown 11/08/2024 12:03 PM EDT 11/08/2024 12:05 PM EDT Nathaly Nowak MD LAB POINT OF CARE TE ST DOCKED DEVICE UNSOLICITED RESULTS Final Result Performing Organization Address [facility] Co de Phone Number [facility] [address] [place] [address] * Vancomycin, Peak, Plasma Please draw ~2 hours after 11/08 0600 dose of vancomycin finishes infusing.Consider obtaining level via peripheral stick. If peripheral stick is not feasible, please ensure that line is flushed well prior to drawing level.... (11/08/2024 9:24 AM EDT) Pathologist [facility] Vancomycin, Peak, Plasma 29.1 20.0 - 40.0 ug/mL 11/08/2024 10:31 AM EDT [facility] Blood Venous blood specimen / Unknown Venipuncture / Unknown 11/08/2024 9:24 AM EDT 11/08/2024 9:47 AM EDT Narrative [facility] - 11/08/2024 10:31 AM EDT Therapeutic Peak level: 20-40ug/mL Supra-therapeutic Peak level: >40 ug/mL Nathaly Nowak MD LAB BLOOD ORDERABLES Final Resu lt Performing Organization Address [facility] Co de Phone Number [facility] [address] [place] [address] * (ABNORMAL) POCT glucose meter (11/08/2024 8:00 AM EDT) [facility] POCT Glucose 150(H) 74 - 99 [...] Comment 11/08/2024 8:01 AM EDT [facility] Multifocal Button Inspector ID Estefani Sheth 11/08/2024 8:01 AM EDT [facility] Device ID [id number] 11/08/2024 8:01 AM EDT [facility] Specimen Type POC Capillary 11/08/2024 8:01 AM EDT [facility] Blood Capillary blood specimen / Unknown 11/08/2024 8:00 AM EDT 11/08/2024 8:01 AM EDT Nathaly Nowak MD LAB POINT OF CARE TE ST DOCKED DEVICE UNSOLICITED RESULTS Final Result Performing Organization Address City/[facility]/ZIP Co de Phone Number [facility] [address] [place] [address] * (ABNORMAL) CBC and Differential (11/08/2024 4:39 AM EDT) [facility] WBC Count 9.18 3.70 - 10.30 10*3/uL LAB HEMATOLOGY METHOD 11/08/2024 4:58 AM EDT [facility] RBC Count 3.11(L) 4.60 - 6.10 10*6/uL LAB HEMATOLOGY METHOD 11/08/2024 4:58 AM EDT [facility] HGB 9.2(L) 13.7 - 17.5 g/dL LAB HEMATOLOGY METHOD 11/08/2024 4:58 AM EDT [facility] HCT 28.9(L) 40.0 - 51.0 % LAB HEMATOLOGY METHOD 11/08/2024 4:58 AM EDT [facility] Platelet Count 485(H) 155 - 369 10*3/uL LAB HEMATOLOGY METHOD 11/08/2024 4:58 AM EDT [facility] MCV 93 79 - 98 fL LAB HEMATOLOGY METHOD 11/08/2024 4:58 AM EDT [facility] MCH 29.6 26.0 - 32.0 pg LAB HEMATOLOGY METHOD 11/08/2024 4:58 AM EDT [facility] MCHC 31.8 30.7 - 35.5 g/dL LAB HEMATOLOGY METHOD 11/08/2024 4:58 AM EDT [facility] RDW 13.0 11.5 - 14.5 % LAB HEMATOLOGY METHOD 11/08/2024 4:58 AM EDT [facility] MPV 8.8 8.8 - 12.5 fL LAB HEMATOLOGY METHOD 11/08/2024 4:58 AM EDT [facility] nRBC 0.0 <=0.0 per 100 WBCs LAB HEMATOLOGY METHOD 11/08/2024 4:58 AM EDT [facility] Differential Type Automated LAB HEMATOLOGY METHOD 11/08/2024 4:58 AM EDT [facility] Neutrophils % 69 % LAB HEMATOLOGY METHOD 11/08/2024 4:58 AM EDT [facility] Lymphocytes % 17 % LAB HEMATOLOGY METHOD 11/08/2024 4:58 AM EDT [facility] Monocytes % 10 % LAB HEMATOLOGY METHOD 11/08/2024 4:58 AM EDT [facility] Eosinophils % 2 % LAB HEMATOLOGY METHOD 11/08/2024 4:58 AM EDT [facility] Basophils % 1 % LAB HEMATOLOGY METHOD 11/08/2024 4:58 AM EDT [facility] Immature Granulocytes % 1 % LAB HEMATOLOGY METHOD 11/08/2024 4:58 AM EDT [facility] Neutrophils Absolute 6.40(H) 1.60 - 6.10 10*3/uL LAB HEMATOLOGY METHOD 11/08/2024 4:58 AM EDT [facility] Lymphocytes Absolute 1.59 1.20 - 3.90 10*3/uL LAB HEMATOLOGY METHOD 11/08/2024 4:58 AM EDT [facility] Monocytes Absolute 0.87 0.30 - 0.90 10*3/uL LAB HEMATOLOGY METHOD 11/08/2024 4:58 AM EDT [facility] Eosinophils Absolute 0.22 0.00 - 0.50 10*3/uL LAB HEMATOLOGY METHOD 11/08/2024 4:58 AM EDT [facility] Basophils Absolute 0.05 0.00 - 0.10 10*3/uL LAB HEMATOLOGY METHOD 11/08/2024 4:58 AM EDT [facility] Immature Granulocytes Absolute 0.05 0.00 - 0.06 10*3/uL LAB HEMATOLOGY METHOD 11/08/2024 4:58 AM EDT [facility] Blood Venous blood specimen / Unknown Venipuncture / Unknown 11/08/2024 4:39 AM EDT 11/08/2024 4:49 AM EDT Narrative [facility] - 11/08/2024 4:58 AM EDT Therapeutic decision making should be based on absolute values, rather than percentages. us Nathaly Nowak MD LAB BLOOD ORDERABLES Final Resu lt [facility] [address] [place] [address] * (ABNORMAL) Comprehensive Metabolic Panel, Plasma (11/08/2024 4:39 AM EDT) Glucose, Plasma 255(H) 74 - 99 mg/dL 11/08/2024 5:20 AM EDT [facility] BUN, Plasma 10 8 - 23 mg/dL 11/08/2024 5:20 AM EDT [facility] Creatinine, Plasma 0.75 0.70 - 1.20 mg/dL 11/08/2024 5:20 AM EDT [facility] BUN/Creatinine Ratio 13 11/08/2024 5:20 AM EDT [facility] Sodium, Plasma 133(L) 136 - 145 mmol/L 11/08/2024 5:20 AM EDT [facility] Potassium, Plasma 5.2(H) 3.6 - 4.9 mmol/L 11/08/2024 5:20 AM EDT [facility] Chloride, Plasma 105 97 - 107 mmol/L 11/08/2024 5:20 AM EDT [facility] CO2, Plasma 20(L) 22 - 29 mmol/L 11/08/2024 5:20 AM EDT [facility] Anion Gap 8 6 - 16 mmol/L 11/08/2024 5:20 AM EDT [facility] Total Calcium, Plasma 7.7(L) 8.9 - 10.2 mg/dL 11/08/2024 5:20 AM EDT [facility] Total Protein 5.6(L) 6.3 - 7.9 g/dL 11/08/2024 5:20 AM EDT [facility] Albumin, Plasma 2.8(L) 3.5 - 5.2 g/dL 11/08/2024 5:20 AM EDT [facility] AST, Plasma 20 10 - 50 U/L 11/08/2024 5:20 AM EDT [facility] Comment:Hemolyzed, result ma y be falsely increased. ALT, Plasma 14 10 - 50 U/L 11/08/2024 5:20 AM EDT [facility] Alkaline Phosphatase, Plasma 119(H) 40 - 115 U/L 11/08/2024 5:20 AM EDT [facility] Total Bilirubin, Plasma <0.2(L) 0.2 - 1.1 mg/dL 11/08/2024 5:20 AM EDT [facility] eGFRcr 100.1 mL/min/1.7 3m*2 11/08/2024 5:20 AM EDT [facility] Comment:Reported eGFRcr in m L/min/1.73m2 is based the CKD-EPI 2020 equation that does not use a race coefficient. Blood Venous blood specimen / Unknown Venipuncture / Unknown 11/08/2024 4:39 AM EDT 11/08/2024 4:43 AM EDT Nathaly Nowak MD LAB BLOOD ORDERABLES Final Resu lt Performing Organization Address [facility] Co de Phone Number [facility] [address] [place] [address] * Vancomycin, Trough, Plasma Please draw ~30 minutes prior to dose due at 0600 on 11/08. Please do NOThold dose awaiting level to return. Consider obtaining level via peripheral stick. If peripheral stick is not feasible, please ensure that line is... (11/08/2024 4:39 AM EDT) [facility] Vancomycin, Trough, Plasma 18.7 10.0 - 20.0 ug/mL 11/08/2024 5:22 AM EDT [facility] Blood Venous blood specimen / Unknown Venipuncture / Unknown 11/08/2024 4:39 AM EDT 11/08/2024 4:43 AM EDT Narrative [facility] - 11/08/2024 5:22 AM EDT Therapeutic Trough level: 10-20ug/mL Supra-therapeutic Trough level: >20 ug/mL Nathaly Nowak MD LAB BLOOD ORDERABLES Final Resu Performing Organization Address [facility] [place] [address] * (ABNORMAL) POCT glucose meter (11/07/2024 7:26 PM EDT) [facility] POCT Glucose 172(H) 74 - 99 [...] 11/07/2024 7:28 PM EDT [facility] Multifocal Button Inspector ID Maximiliano Hansen II 11/07/2024 7:28 PM EDT [facility] Device ID [id number] 11/07/2024 7:28 PM EDT [facility] Specimen Type POC Capillary 11/07/2024 7:28 PM EDT [facility] Blood Capillary blood specimen / Unknown 11/07/2024 7:26 PM EDT 11/07/2024 7:28 PM EDT Nathaly Nowak MD LAB POINT OF CARE TE ST DOCKED DEVICE UNSOLICITED RESULTS Final Result Performing Organization Address City/[facility]/ZIP Co de Phone Number [facility] [address] [place] [address] * (ABNORMAL) POCT glucose meter (11/07/2024 5:51 [...] Comment 11/07/2024 5:52 PM EDT [facility] Multifocal Button Inspector ID Brigitte Castellon 11/07/2024 5:52 PM EDT [facility] Device ID [id number] 11/07/2024 5:52 PM EDT [facility] Specimen Type POC Capillary 11/07/2024 5:52 PM EDT [facility] Blood Capillary blood specimen / Unknown 11/07/2024 5:51 PM EDT 11/07/2024 5:52 PM EDT us Nathaly Nowak MD LAB POINT OF CARE TE ST DOCKED DEVICE UNSOLICITED RESULTS Final Result [facility] [address] [place] [address] * (ABNORMAL) POCT glucose meter (11/07/2024 4:47 [...] 11/07/2024 4:48 PM EDT [facility] Multifocal Button Inspector ID Estefani Sheth 11/07/2024 4:48 PM EDT [facility] Device ID [id number] 11/07/2024 4:48 PM EDT [facility] Specimen Type POC Capillary 11/07/2024 4:48 PM EDT [facility] Blood Capillary blood specimen / Unknown 11/07/2024 4:47 PM EDT 11/07/2024 4:48 PM EDT us Nathaly Nowak MD LAB POINT OF CARE TE ST DOCKED DEVICE UNSOLICITED RESULTS Final Result Performing Organization Address City/State/[facility] Co de Phone Number [facility] [address] [place] [address] * (ABNORMAL) POCT glucose meter (11/07/2024 12:22 PM EDT) [facility] POCT Glucose 172(H) 74 - 99 [...] 11/07/2024 12:24 PM EDT [facility] Multifocal Button Inspector ID Estefani Sheth 11/07/2024 12:24 PM EDT [facility] Device ID [id number] 11/07/2024 12:24 PM EDT [facility] Specimen Type POC Capillary 11/07/2024 12:24 PM EDT [facility] Blood Capillary blood specimen / Unknown 11/07/2024 12:22 PM EDT 11/07/2024 12:24 PM EDT us Nathaly Nowak MD LAB POINT OF CARE TE ST DOCKED DEVICE UNSOLICITED RESULTS Final Result [facility] [address] [place] [id number] * (ABNORMAL) CBC and Differential (11/07/2024 11:37 AM EDT) WBC Count 9.96 3.70 - 10.30 10*3/uL LAB HEMATOLOGY METHOD 11/07/2024 12:33 PM EDT [facility] RBC Count 2.81(L) 4.60 - 6.10 10*6/uL LAB HEMATOLOGY METHOD 11/07/2024 12:33 PM EDT [facility] HGB 8.5(L) 13.7 - 17.5 g/dL LAB HEMATOLOGY METHOD 11/07/2024 12:33 PM EDT [facility] HCT 26.0(L) 40.0 - 51.0 % LAB HEMATOLOGY METHOD 11/07/2024 12:33 PM EDT [facility] Platelet Count 524(H) 155 - 369 10*3/uL LAB HEMATOLOGY METHOD 11/07/2024 12:33 PM EDT [facility] MCV 93 79 - 98 fL LAB HEMATOLOGY METHOD 11/07/2024 12:33 PM EDT [facility] MCH 30.2 26.0 - 32.0 pg LAB HEMATOLOGY METHOD 11/07/2024 12:33 PM EDT [facility] MCHC 32.7 30.7 - 35.5 g/dL LAB HEMATOLOGY METHOD 11/07/2024 12:33 PM EDT [facility] RDW 13.1 11.5 - 14.5 % LAB HEMATOLOGY METHOD 11/07/2024 12:33 PM EDT [facility] MPV 9.0 8.8 - 12.5 fL LAB HEMATOLOGY METHOD 11/07/2024 12:33 PM EDT [facility] nRBC 0.0 <=0.0 per 100 WBCs LAB HEMATOLOGY METHOD 11/07/2024 12:33 PM EDT [facility] Differential Type Automated LAB HEMATOLOGY METHOD 11/07/2024 12:33 PM EDT [facility] Neutrophils % 72 % LAB HEMATOLOGY METHOD 11/07/2024 12:33 PM EDT [facility] Lymphocytes % 17 % LAB HEMATOLOGY METHOD 11/07/2024 12:33 PM EDT [facility] Monocytes % 9 % LAB HEMATOLOGY METHOD 11/07/2024 12:33 PM EDT [facility] Eosinophils % 1 % LAB HEMATOLOGY METHOD 11/07/2024 12:33 PM EDT [facility] Basophils % 1 % LAB HEMATOLOGY METHOD 11/07/2024 12:33 PM EDT [facility] Immature Granulocytes % 0 % LAB HEMATOLOGY METHOD 11/07/2024 12:33 PM EDT [facility] Neutrophils Absolute 7.19(H) 1.60 - 6.10 10*3/uL LAB HEMATOLOGY METHOD 11/07/2024 12:33 PM EDT [facility] Lymphocytes Absolute 1.66 1.20 - 3.90 10*3/uL LAB HEMATOLOGY METHOD 11/07/2024 12:33 PM EDT [facility] Monocytes Absolute 0.88 0.30 - 0.90 10*3/uL LAB HEMATOLOGY METHOD 11/07/2024 12:33 PM EDT [facility] Eosinophils Absolute 0.14 0.00 - 0.50 10*3/uL LAB HEMATOLOGY METHOD 11/07/2024 12:33 PM EDT [facility] Basophils Absolute 0.05 0.00 - 0.10 10*3/uL LAB HEMATOLOGY METHOD 11/07/2024 12:33 PM EDT [facility] Immature Granulocytes Absolute 0.04 0.00 - 0.06 10*3/uL LAB HEMATOLOGY METHOD 11/07/2024 12:33 PM EDT [facility] Blood Venous blood specimen / Unknown Venipuncture / Unknown 11/07/2024 11:37 AM EDT 11/07/2024 12:24 PM EDT [facility] - 11/07/2024 12:33 PM EDT Therapeutic decision making should be based on absolute values, rather than percentages. us Nathaly Nowak MD LAB BLOOD ORDERABLES Final Resu lt [facility] [address] [place] [address] * (ABNORMAL) Comprehensive Metabolic Panel, Plasma (11/07/2024 11:37 AM EDT) Glucose, Plasma 173(H) 74 - 99 mg/dL 11/07/2024 1:31 PM EDT [facility] BUN, Plasma 13 8 - 23 mg/dL 11/07/2024 1:31 PM EDT [facility] Creatinine, Plasma 0.92 0.70 - 1.20 mg/dL 11/07/2024 1:31 PM EDT [facility] BUN/Creatinine Ratio 14 11/07/2024 1:31 PM EDT [facility] Sodium, Plasma 136 136 - 145 mmol/L 11/07/2024 1:31 PM EDT [facility] Potassium, Plasma 4.0 3.6 - 4.9 mmol/L 11/07/2024 1:31 PM EDT [facility] Chloride, Plasma 104 97 - 107 mmol/L 11/07/2024 1:31 PM EDT [facility] CO2, Plasma 23 22 - 29 mmol/L 11/07/2024 1:31 PM EDT [facility] Anion Gap 9 6 - 16 mmol/L 11/07/2024 1:31 PM EDT [facility] Total Calcium, Plasma 7.8(L) 8.9 - 10.2 mg/dL 11/07/2024 1:31 PM EDT [facility] Total Protein 5.7(L) 6.3 - 7.9 g/dL 11/07/2024 1:31 PM EDT [facility] Albumin, Plasma 3.0(L) 3.5 - 5.2 g/dL 11/07/2024 1:31 PM EDT [facility] AST, Plasma 15 10 - 50 U/L 11/07/2024 1:31 PM EDT [facility] ALT, Plasma 16 10 - 50 U/L 11/07/2024 1:31 PM EDT [facility] Alkaline Phosphatase, Plasma 119(H) 40 - 115 U/L 11/07/2024 1:31 PM EDT [facility] Total Bilirubin, Plasma <0.2(L) 0.2 - 1.1 mg/dL 11/07/2024 1:31 PM EDT [facility] eGFRcr 92.3 mL/min/1.7 3m*2 11/07/2024 1:31 PM EDT [facility] Comment:Reported eGFRcr in m L/min/1.73m2 is based the CKD-EPI 2020 equation that does not use a race coefficient. Blood Venous blood specimen / Unknown Venipuncture / Unknown 11/07/2024 11:37 AM EDT 11/07/2024 12:23 PM EDT Nathaly Nowak MD LAB BLOOD ORDERABLES Final Resu lt Performing Organization Address City/[facility]/ZIP Co de Phone Number [facility] [address] [place] [address] * Type and Screen (11/07/2024 11:37 AM [...] ORDERABLES F inal Result Performing Organization Address [facility] Co de Phone Number BLOOD BANK [address] [place] [address], * (ABNORMAL) POCT glucose meter (11/07/2024 10:34 AM EDT) POCT Glucose 199(H) 74 - 99 mg/dL 11/07/2024 10:36 AM EDT [employer] [facility] Comment:Accuracy of a glucos e result [...] Comment 11/07/2024 10:36 AM EDT [facility]ALTH[facility]ARE LAB Multifocal Button Inspector ID Joy Iraheta 11/07/2024 10:36 AM EDT HEALTHCARE LAB Device ID [id number] 11/07/2024 10:36 AM EDT [facility]ALTH[facility] LAB Specimen Type POC Capillary 11/07/2024 10:36 AM EDT [facility] LAB Blood Capillary blood specimen / Unknown 11/07/2024 10:34 AM EDT 11/07/2024 10:36 AM EDT Nathaly Nowak MD LAB POINT OF CARE TE ST DOCKED DEVICE UNSOLICITED RESULTS Final Result Performing Organization Address City/[facility] de Phone Number HEALTHCARE LAB [address] [place] [address] * (ABNORMAL) POCT glucose meter (11/07/2024 9:34 AM EDT) [facility] Signature POCT Glucose 208(H) 74 - [...] Comment 11/07/2024 9:36 AM EDT [facility]ARE LAB Multifocal Button Inspector ID Brigitte Castellon 11/07/2024 9:36 AM EDT HEALTHCARE LAB Device ID [id number] 11/07/2024 9:36 AM EDT [facility]ALTH[facility]ARE LAB Specimen Type POC Capillary 11/07/2024 9:36 AM EDT [facility] LAB Blood Capillary blood specimen / Unknown 11/07/2024 9:34 AM EDT 11/07/2024 9:36 AM EDT Nathaly Nowak MD LAB POINT OF CARE TE ST DOCKED DEVICE UNSOLICITED RESULTS Final Result Performing Organization Address City/[facility] Co de Phone Number HEALTHCARE LAB [address] [place] [address] * (ABNORMAL) POCT glucose meter (11/07/2024 8:20 AM EDT) [facility] POCT Glucose 137(H) 74 - 99 [...] Comment 11/07/2024 8:22 AM EDT HEALTHCARE LAB Multifocal Button Inspector ID Estefani Sheth 11/07/2024 8:22 AM EDT [employer] [facility] LAB Device ID [id number] 11/07/2024 8:22 AM EDT HEALTHCARE LAB Specimen Type POC Capillary 11/07/2024 8:22 AM EDT [facility]ALTH[facility]ARE LAB Blood Capillary blood specimen / Unknown 11/07/2024 8:20 AM EDT 11/07/2024 8:22 AM EDT Nathaly Nowak MD LAB POINT OF CARE TE ST DOCKED DEVICE UNSOLICITED RESULTS Final Result [facility] [address] [place] [address] * (ABNORMAL) POCT glucose meter (11/07/2024 7:21 AM EDT) [facility] POCT Glucose 151(H) 74 - 99 [...] 11/07/2024 7:22 AM EDT [facility] Multifocal Button Inspector ID Brigitte Castellon 11/07/2024 7:22 AM EDT HEALTHCARE LAB Device ID [id number] 11/07/2024 7:22 AM EDT [facility] Specimen Type POC Capillary 11/07/2024 7:22 AM EDT HEALTH[facility]ARE LAB Blood Capillary blood specimen / Unknown 11/07/2024 7:21 AM EDT 11/07/2024 7:22 AM EDT Nathaly Nowak MD LAB POINT OF CARE TE ST DOCKED DEVICE UNSOLICITED RESULTS Final Result Performing Organization Address City/[facility] Co de Phone Number HEALTHCARE LAB [address] [place] [address] * (ABNORMAL) POCT glucose meter (11/07/2024 6:25 [...] Comment 11/07/2024 6:27 AM EDT [facility] LAB Multifocal Button Inspector ID Nelda Gerber 11/08/19 6:27 AM EDT HEALTHCARE LAB Device ID [id number] 11/07/2024 6:27 AM EDT HEALTH[facility]ARE LAB Specimen Type POC Capillary 11/07/2024 6:27 AM EDT [facility] LAB Blood Capillary blood specimen / Unknown 11/07/2024 6:25 AM EDT 11/07/2024 6:27 AM EDT us Nathaly Nowak MD LAB POINT OF CARE TE ST DOCKED DEVICE UNSOLICITED RESULTS Final Result Performing Organization Address City/[facility]/ZIP Co de Phone Number HEALTHCARE LAB [address] [place] [address] * (ABNORMAL) POCT glucose meter (11/07/2024 5:03 [...] Comment 11/07/2024 5:08 AM EDT [facility] LAB Multifocal Button Inspector ID Nelda Gerber 11/08/19 5:08 AM EDT HEALTHCARE LAB Device ID [id number] 11/07/2024 5:08 AM EDT [facility]ARE LAB Specimen Type POC Capillary 11/07/2024 5:08 AM EDT [facility] LAB Blood Capillary blood specimen / Unknown 11/07/2024 5:03 AM EDT 11/07/2024 5:08 AM EDT Nathaly Nowak MD LAB POINT OF CARE TE ST DOCKED DEVICE UNSOLICITED RESULTS Final Result Performing Organization Address City/State/[facility] Co de Phone Number HEALTHCARE LAB [address] [place] [address] * (ABNORMAL) POCT glucose meter (11/07/2024 4:16 AM EDT) [facility] POCT Glucose 142(H) 74 - 99 [...] Comment 11/07/2024 4:18 AM EDT [facility]ALTH[facility]ARE LAB Multifocal Button Inspector ID Nelda Gerber 11/08/19 4:18 AM EDT HEALTHCARE LAB Device ID [id number] 11/07/2024 4:18 AM EDT HEALTH[facility]ARE LAB Specimen Type POC Capillary 11/07/2024 4:18 AM EDT [facility]ALTH[facility]ARE LAB Blood Capillary blood specimen / Unknown 11/07/2024 4:16 AM EDT 11/07/2024 4:18 AM EDT us Nathaly Nowak MD LAB POINT OF CARE TE ST DOCKED DEVICE UNSOLICITED RESULTS Final Result [facility] [address] [place] [address] * (ABNORMAL) POCT glucose meter (11/07/2024 3:21 [...] for testing. Comment 11/07/2024 3:23 AM EDT [facility] Multifocal Button Inspector ID Nelda Gerber 11/08/19 3:23 AM EDT [facility] Device ID [id number] 11/07/2024 3:23 AM EDT [facility] Specimen Type POC Capillary 11/07/2024 3:23 AM EDT [facility] Blood Capillary blood specimen / Unknown 11/07/2024 3:21 AM EDT 11/07/2024 3:23 AM EDT us Nathaly Nowak MD LAB POINT OF CARE TE ST DOCKED DEVICE UNSOLICITED RESULTS Final Result Performing Organization Address City/[facility]/ZIP Co de Phone Number [facility] [address] [place] [address] * (ABNORMAL) POCT glucose meter (11/07/2024 2:10 [...] Comment 11/07/2024 2:12 AM EDT HEALTHCARE LAB Multifocal Button Inspector ID Nelda Gerber 11/08/19 2:12 AM EDT [facility] Device ID [id number] 11/07/2024 2:12 AM EDT [facility] Specimen Type POC Capillary 11/07/2024 2:12 AM EDT [facility]ALTH[facility]ARE LAB Blood Capillary blood specimen / Unknown 11/07/2024 2:10 AM EDT 11/07/2024 2:12 AM EDT Nathaly Nowak MD LAB POINT OF CARE TE ST DOCKED DEVICE UNSOLICITED RESULTS Final Result Performing Organization Address City/[facility] Co de Phone Number [facility] [address] [place] [address] * (ABNORMAL) POCT glucose meter (11/07/2024 1:08 [...] Comment 11/07/2024 1:10 AM EDT [facility]ALTH[facility]ARE LAB Multifocal Button Inspector ID Nelda Gerber 11/08/19 1:10 AM EDT HEALTHCARE LAB Device ID [id number] 11/07/2024 1:10 AM EDT [facility] Specimen Type POC Capillary 11/07/2024 1:10 AM EDT [facility]ALTH[facility]ARE LAB Blood Capillary blood specimen / Unknown 11/07/2024 1:08 AM EDT 11/07/2024 1:10 AM EDT Nathaly Nowak MD LAB POINT OF CARE TE ST DOCKED DEVICE UNSOLICITED RESULTS Final Result Performing Organization Address City/[facility]/ZIP Co de Phone Number [facility] [address] [place] [address] * (ABNORMAL) POCT glucose meter (11/07/2024 12:10 AM EDT) [facility] POCT Glucose 127(H) 74 - 99 [...] Comment 11/07/2024 12:13 AM EDT HEALTHCARE LAB Multifocal Button Inspector ID Nelda Gerber 11/08/19 12:13 AM EDT [facility] Device ID [id number] 11/07/2024 12:13 AM EDT [facility] Specimen Type POC Capillary 11/07/2024 12:13 AM EDT [facility] Blood Capillary blood specimen / Unknown 11/07/2024 12:10 AM EDT 11/07/2024 12:13 AM EDT us Nathaly Nowak MD LAB POINT OF CARE TE ST DOCKED DEVICE UNSOLICITED RESULTS Final Result Performing Organization Address City/State/[facility] Co de Phone Number HEALTHCARE LAB [address] [place] [address] * (ABNORMAL) POCT glucose meter (11/06/2024 11:14 PM EDT) [facility] POCT Glucose 71(L) 74 - 99 [...] 11/06/2024 11:16 PM EDT [facility] Multifocal Button Inspector ID Nelda Gerber 11/07/19 11:16 PM EDT [facility] LAB Device ID [id number] 11/06/2024 11:16 PM EDT HEALTHCARE LAB Specimen Type POC Capillary 11/06/2024 11:16 PM EDT HEALTHCARE LAB Blood Capillary blood specimen / Unknown 11/06/2024 11:14 PM EDT 11/06/2024 11:16 PM EDT Nathaly Nowak MD LAB POINT OF CARE TE ST DOCKED DEVICE UNSOLICITED RESULTS Final Result [facility] [address] [place] [address] * (ABNORMAL) POCT glucose meter (11/06/2024 10:07 [...] Comment 11/06/2024 10:09 PM EDT [facility]ALTH[facility]ARE LAB Multifocal Button Inspector ID Nelda Gerber 11/07/19 10:09 PM EDT HEALTHCARE LAB Device ID [id number] 11/06/2024 10:09 PM EDT [facility] Specimen Type POC Capillary 11/06/2024 10:09 PM EDT [facility] Blood Capillary blood specimen / Unknown 11/06/2024 10:07 PM EDT 11/06/2024 10:09 PM EDT Nathaly Nowak MD LAB POINT OF CARE TE ST DOCKED DEVICE UNSOLICITED RESULTS Final Result [facility] [address] [place] [address] * (ABNORMAL) POCT glucose meter (11/06/2024 8:22 [...] Comment 11/06/2024 8:25 PM EDT HEALTHCARE LAB Multifocal Button Inspector ID Nelda Gerber 11/07/19 8:25 PM EDT HEALTHCARE LAB Device ID [id number] 11/06/2024 8:25 PM EDT HEALTHCARE LAB Specimen Type POC Capillary 11/06/2024 8:25 PM EDT HEALTH[facility]ARE LAB Blood Capillary blood specimen / Unknown 11/06/2024 8:22 PM EDT 11/06/2024 8:25 PM EDT Nathaly Nowak MD LAB POINT OF CARE TE ST DOCKED DEVICE UNSOLICITED RESULTS Final Result Performing Organization Address City/State/[facility] Co de Phone Number HEALTHCARE LAB [address] [place] [address] * (ABNORMAL) POCT glucose meter (11/06/2024 7:31 [...] Comment 11/06/2024 7:32 PM EDT [facility]ALTHCARE LAB Multifocal Button Inspector ID Nelda Gerber 11/07/19 7:32 PM EDT HEALTHCARE LAB Device ID [id number] 11/06/2024 7:32 PM EDT HEALTHCARE LAB Specimen Type POC Capillary 11/06/2024 7:32 PM EDT [facility]ALTH[facility]ARE LAB Blood Capillary blood specimen / Unknown 11/06/2024 7:31 PM EDT 11/06/2024 7:32 PM EDT us Nathaly Nowak MD LAB POINT OF CARE TE ST DOCKED DEVICE UNSOLICITED RESULTS Final Result Performing Organization Address City/[facility]/ZIP Co de Phone Number HEALTHCARE LAB [address] [place] [address] * (ABNORMAL) POCT glucose meter (11/06/2024 6:15 PM EDT) [facility] POCT Glucose 368(H) 74 - 99 [...] for testing. Comment 11/06/2024 6:17 PM EDT [facility] Multifocal Button Inspector ID Estefani Sheth 11/06/2024 6:17 PM EDT [facility] LAB Device ID [id number] 11/06/2024 6:17 PM EDT [facility] Specimen Type POC Capillary 11/06/2024 6:17 PM EDT [facility] Blood Capillary blood specimen / Unknown 11/06/2024 6:15 PM EDT 11/06/2024 6:17 PM EDT Nathaly Nowak MD LAB POINT OF CARE TE ST DOCKED DEVICE UNSOLICITED RESULTS Final Result Performing Organization Address City/[facility] Co de Phone Number [facility] [address] [place] [address] * (ABNORMAL) POCT glucose meter (11/06/2024 4:57 PM EDT) [facility] POCT Glucose 417(H) 74 - 99 [...] 11/06/2024 4:58 PM EDT [facility] Multifocal Button Inspector ID Estefani Sheth 11/06/2024 4:58 PM EDT HEALTHCARE LAB Device ID [id number] 11/06/2024 4:58 PM EDT HEALTHCARE LAB Specimen Type POC Capillary 11/06/2024 4:58 PM EDT [facility]ALTH[facility]ARE LAB Blood Capillary blood specimen / Unknown 11/06/2024 4:57 PM EDT 11/06/2024 4:58 PM EDT Nathaly Nowak MD LAB POINT OF CARE TE ST DOCKED DEVICE UNSOLICITED RESULTS Final Result Performing Organization Address City/[facility]/ZIP Co de Phone Number HEALTHCARE LAB [address] [place] [address] * (ABNORMAL) POCT glucose meter (11/06/2024 2:08 [...] Comment 11/06/2024 2:09 PM EDT [facility]ALTH[facility]ARE LAB Multifocal Button Inspector ID Brigitte Castellon 11/06/2024 2:09 PM EDT HEALTHCARE LAB Device ID [id number] 11/06/2024 2:09 PM EDT HEALTH[facility]ARE LAB Specimen Type POC Capillary 11/06/2024 2:09 PM EDT [facility]ALTH[facility] LAB Blood Capillary blood specimen / Unknown 11/06/2024 2:08 PM EDT 11/06/2024 2:09 PM EDT Nathaly Nowak MD LAB POINT OF CARE TE ST DOCKED DEVICE UNSOLICITED RESULTS Final Result Performing Organization Address City/[facility]/ZIP Co de Phone Number HEALTHCARE LAB [address] [place] [address] * (ABNORMAL) POCT glucose meter (11/06/2024 12:27 [...] Comment 11/06/2024 12:28 PM EDT HEALTHCARE LAB Multifocal Button Inspector ID Jacinta Galloway 11/06/2024 12:28 PM EDT HEALTHCARE LAB Device ID [id number] 11/06/2024 12:28 PM EDT HEALTH[facility]ARE LAB Specimen Type POC Capillary 11/06/2024 12:28 PM EDT [facility]ALTH[facility] LAB Blood Capillary blood specimen / Unknown 11/06/2024 12:27 PM EDT 11/06/2024 12:28 PM EDT us Nathaly Nowak MD LAB POINT OF CARE TE ST DOCKED DEVICE UNSOLICITED RESULTS Final Result Performing Organization Address City/State/[facility] Co de Phone Number HEALTHCARE LAB [address] [place] [address] * (ABNORMAL) Fungal Culture, Tissue and ISIDRO (11/06/2024 11:34 AM EDT) [facility] Culture Reading Mycological 4 Weeks Rare Clayton Sana parapsilosis (A) 12/05/2024 8:36 AM EDT [facility] Comment: This isolate has been identified using the FDA Approved [employer] [place] System The organism value for this result has been updated. These results have been appended to the previously preliminary verified report. Edited result: Previously reported as Yeast on 11/11/2024 at 1317 EDT. ISIDRO No fungal elements seen 12/05/2024 8:36 AM EDT [facility] Tissue [...] Nathaly Nowak MD LAB MICROBIOLOGY - GENERAL [facility] Final Result [facility] [address] [place] [address] * (ABNORMAL) Tissue Culture and Gram Stain (11/06/2024 11:34 AM EDT) Culture Moderate Growth 7:35 AM EDT [facility] Culture 2+ Enterobacter cloacae complex(A) ANGÉLICA 11/15/2024 7:35 AM EDT [facility] Comment: This isolate has been identified using the FDA Approved [employer] System The organism value for this result has been updated. These results have been appended to the previously preliminary verified report. Edited result: Previously reported as Gram Negative Jesus on 11/07/2024 at 1434 EDT. Culture 2+ Streptococcus mitis/oralis group(A) ANGÉLICA 11/15/2024 7:35 AM EDT [facility] Comment: This isolate has been identified using the FDA Approved [employer] [place] System The organism value for this result has been updated. These results have been appended to the previously preliminary verified report. Culture 2+ Pasteurella stomatis(A) ANGÉLICA 11/15/2024 7:35 AM EDT [facility] Comment: This result was determined by MALDI tof mass spectrometry using the [employer] database and is for research use only. The organism value for this result has been updated. These results have been appended to the previously preliminary verified report. Gram Stain Result Few Gram negative rods(A) 11/15/2024 7:35 AM EDT [facility] Gram Stain Result Moderate Polymorphonuclear leukocytes(A) 11/15/2024 7:35 AM EDT [facility] Gram Stain Result Few Gram positive cocci in pairs(A) 11/15/2024 7:35 AM EDT [facility] Tissue Topography unknown / Unknown 11/06/2024 11:34 AM EDT 11/06/2024 12:18 PM EDT Comment:Pre-op diagnosis: Surgical wound infection [T81.49XA] Narrative [facility] - 11/15/2024 7:35 AM [...] GENERAL ORDAna FRITZ Edited Result - Final [facility] [address] [place] [address] * (ABNORMAL) Anaerobic Culture (11/06/2024 11:34 AM EDT) Culture No anaerobes isolated 11/14/2024 1:25 PM EDT [facility] Culture Staphylococcus pseudintermedius( A) 11/14/2024 1:25 PM EDT [facility] Comment: This result was determined by MALDI tof mass spectrometry using the [employer] database and is for research use only. This is an appended report. These results have been appended to a previously final verified report. Tissue Topography unknown / Unknown 11/06/2024 11:34 AM EDT 11/06/2024 12:18 PM EDT Comment:Pre-op diagnosis: Surgical wound infection [T81.49XA] Narrative [facility] - 11/14/2024 1:25 PM [...] Nowak MD LAB MICROBIOLOGY - [facility] Edited Result - Final [facility] [address] [place] [address] * (ABNORMAL) Routine Culture and Gram Stain (11/06/2024 11:29 AM EDT) Culture Moderate Growth 5:29 PM EDT [facility] Culture Enterobacter cloacae complex(A) 11/08/2024 5:29 PM EDT [facility] Comment: This isolate has been identified using the FDA Approved [employer] System For susceptibility results refer to: - [id number] The organism value for this result has been updated. These results have been appended to the previously preliminary verified report. Gram Stain Result No polymorphonuclear leukocytes seen 11/08/2024 5:29 PM EDT [facility] Gram Stain Result No organisms seen 11/08/2024 5:29 PM EDT [facility] Swab Topography unknown / Unknown 11/06/2024 11:29 AM EDT 11/06/2024 12:19 PM EDT Comment:Pre-op diagnosis: Surgical wound infection [T81.49XA] Nathaly Nowak MD LAB MICROBIOLOGY - GENERAL ORD LAM Final Result Performing Organization Address City/[facility] [place] [address] * Fungal Culture, Routine (11/06/2024 11:29 AM EDT) Culture No Fungal Growth at 1 Week 11/13/2024 8:[address] [facility] Swab Topography unknown / Unknown 11/06/2024 11:29 AM EDT 11/06/2024 12:19 PM EDT Comment:Pre-op diagnosis: Surgical wound infection [T81.49XA] Nathaly Nowak MD LAB MICROBIOLOGY - GENERAL [facility] LAM Final Result Performing Organization Address [facility] [place] [address] * (ABNORMAL) Anaerobic Culture (11/06/2024 11:29 AM EDT) Culture No anaerobes isolated 11/14/2024 1:25 PM EDT [facility] Culture Streptococcus mitis/oralis group(A) 11/14/2024 1:25 PM EDT [facility] Comment: This result was determined by MALDI tof mass spectrometry using the [employer] database and is for research use only. The organism value for this result has been updated. These results have been appended to the previously preliminary verified report. This is a corrected result. Previous organism was Mixed skin clifton on 11/10/2024 at 0718 EDT. Culture Staphylococcus pseudintermedius( A) 11/14/2024 1:25 PM EDT [facility] Comment: This isolate has been identified using the FDA Approved [employer] System This is an appended report. These results have been appended to a previously final verified report. Swab Topography unknown / Unknown 11/06/2024 11:29 AM EDT 11/06/2024 12:19 PM EDT Comment:Pre-op diagnosis: Surgical wound infection [T81.49XA] Narrative [facility] - 11/14/2024 1:25 PM [...] Nowak MD LAB [facility]BIOLOGY - [facility] Edited Result - Final [facility] [address] [place] [address] * Routine Culture and Gram Stain (11/06/2024 11:28 AM EDT) Culture No growth at day 4 2024 11:24 AM EDT [facility] Gram Stain Result No organisms seen 11/10/2024 11:24 AM EDT [facility] Gram Stain Result No polymorphonuclear leukocytes seen 11/10/2024 11:24 AM EDT [facility] Swab Topography unknown / Unknown 11/06/2024 11:28 AM EDT 11/06/2024 12:20 PM EDT Comment:Pre-op diagnosis: Surgical wound infection [T81.49XA] Nathaly Nowak MD LAB MICROBIOLOGY - GENERAL ORDE LAM Final Result Performing Organization Address [facility] Co de Phone Number [facility] [address] [place] [address] * Fungal Culture, Routine (11/06/2024 11:28 AM EDT) Culture No Fungal Growth at 1 Week 11/13/2024 8:29 AM EDT [facility] Swab Topography unknown / Unknown 11/06/2024 11:28 AM EDT 11/06/2024 12:20 PM EDT Comment:Pre-op diagnosis: Surgical wound infection [T81.49XA] Nathaly Nowak MD LAB MICROBIOLOGY - GENERAL ORDE LAM Final Result Performing Organization Address [facility] [place] [address] * Anaerobic Culture (11/06/2024 11:28 AM EDT) Culture No growth at day 4 11/13/2024 12:53 PM EDT [facility] Swab Topography unknown / Unknown 11/06/2024 11:28 AM EDT 11/06/2024 12:20 PM EDT Comment:Pre-op diagnosis: Surgical wound infection [T81.49XA] Result [facility] Nathaly Nowak MD LAB MICROBIOLOGY - GENERAL ATIYA FRITZ Final Result Performing Organization Address City/[facility] Co de Phone Number [facility] [address] [place] [address] * (ABNORMAL) POCT glucose meter (11/06/2024 10:16 AM EDT) POCT Glucose 194(H) 74 - 99 mg/dL 11/06/2024 10:18 AM EDT [facility] Comment:Accuracy of a glucos e [...] Comment 11/06/2024 10:18 AM EDT [facility] Multifocal Button Inspector ID Lacy Griffin 11/07/19 10:18 AM EDT [facility] Device ID [id number] 11/06/2024 10:18 AM EDT [facility] Specimen Type POC Capillary 11/06/2024 10:18 AM EDT [facility] Blood Capillary blood specimen / Unknown 11/06/2024 10:16 AM EDT 11/06/2024 10:18 AM EDT us Nathaly Nowak MD LAB POINT OF CARE TE ST DOCKED DEVICE UNSOLICITED RESULTS Final Result Performing Organization Address City/[facility]/ZIP Co de Phone Number [facility] [address] [place] [address] * (ABNORMAL) POCT glucose meter (11/06/2024 5:58 AM EDT) [facility] POCT Glucose 182(H) 74 - 99 [...] Comment 11/06/2024 6:01 AM EDT [facility] Multifocal Button Inspector ID Raj Laird 11/07/19 6:01 AM EDT [facility] Device ID [id number] 11/06/2024 6:01 AM EDT [facility] Specimen Type POC Capillary 11/06/2024 6:01 AM EDT [facility] Blood Capillary blood specimen / Unknown 11/06/2024 5:58 AM EDT 11/06/2024 6:01 AM EDT us Nathaly Nowak MD LAB POINT OF CARE TE ST DOCKED DEVICE UNSOLICITED RESULTS Final Result [facility] [address] [place] [address] * (ABNORMAL) POCT glucose meter (11/06/2024 5:36 [...] Comment 11/06/2024 5:38 AM EDT [facility] Multifocal Button Inspector ID Shahid Sanches 11/06/2024 5:38 AM EDT [facility] Device ID [id number] 11/06/2024 5:38 AM EDT [facility] Specimen Type POC Capillary 11/06/2024 5:38 AM EDT [facility] Blood Capillary blood specimen / Unknown 11/06/2024 5:36 AM EDT 11/06/2024 5:38 AM EDT Nathaly Nowak MD LAB POINT OF CARE TE ST DOCKED DEVICE UNSOLICITED RESULTS Final Result [facility] [address] [place] [address] * (ABNORMAL) Hemoglobin A1c (11/06/2024 1:07 AM EDT) Hemoglobin A1c 7.6(H) <5.7 % 11/06/2024 11:09 AM EDT [facility] Blood Venous blood specimen / Unknown Venipuncture / Unknown 11/06/2024 1:07 AM EDT 11/06/2024 1:26 AM EDT Narrative [facility] - 11/06/2024 11:09 AM EDT HA1C Interpretive Data: Diagnosis of Diabetes: Diabetic > or = 6.5% Pre-diabetic 5.7 to 6.4% Non-diabetic < or = 5.6% Glycemic Targets for Type I and Type II Diabetics: Non- Adults <7.0% Adults <6.0% Children and Adolescents <7.5% Source: [employer]. Standards of medical care in diabetes,2017. Diabetes Care.2017:40 (suppl 1):S1-S135. Result [facility] Nathaly Nowak MD LAB BLOOD ORDERABLES Final Resu lt Performing Organization Address [facility] Co de Phone Number [facility] [address] [place] [address] * Blood Culture (Aerobic/Anaerobet Set) (11/06/2024 1:07 AM EDT) Culture No growth at day 5 11/11/2024 2:49 AM EDT [facility] Blood Structure of right hand / Unknown Venipuncture / Unknown 11/06/2024 1:07 AM EDT 11/06/2024 2:36 AM EDT Nathaly Nowak MD LAB MICROBIOLOGY - GENERAL ORDE RABONEIDA Final Result Performing Organization Address [facility] Co de Phone Number [facility] [address] [place] [address] * Blood Culture (Aerobic/Anaerobet Set) (11/06/2024 1:07 AM EDT) Culture No growth at day 5 11/11/2024 3:01 AM EDT [facility] Blood Structure of antecubital vein / Unknown Venipuncture / Unknown 11/06/2024 1:07 AM EDT 11/06/2024 2:36 AM EDT Nathaly Nowak MD LAB MICROBIOLOGY - GENERAL ORDE RABONEIDA Final Result Performing Organization Address [facility] Co de Phone Number [facility] [address] [place] [address] * (ABNORMAL) Basic metabolic panel (11/06/2024 1:07 AM EDT) Glucose, Plasma 207(H) 74 - 99 mg/dL 11/06/2024 1:41 AM EDT [facility] BUN, Plasma 20 8 - 23 mg/dL 11/06/2024 1:41 AM EDT [facility] Creatinine, Plasma 0.92 0.70 - 1.20 mg/dL 11/06/2024 1:41 AM EDT [facility] BUN/Creatinine Ratio 22 11/06/2024 1:41 AM EDT [facility] Sodium, Plasma 136 136 - 145 mmol/L 11/06/2024 1:41 AM EDT [facility] Potassium, Plasma 4.5 3.6 - 4.9 mmol/L 11/06/2024 1:41 AM EDT [facility] Chloride, Plasma 104 97 - 107 mmol/L 11/06/2024 1:41 AM EDT [facility] CO2, Plasma 22 22 - 29 mmol/L 11/06/2024 1:41 AM EDT [facility] Anion Gap 10 6 - 16 mmol/L 11/06/2024 1:41 AM EDT [facility] Total Calcium, Plasma 9.0 8.9 - 10.2 mg/dL 11/06/2024 1:41 AM EDT [facility] eGFRcr 92.3 mL/min/1.7 3m*2 11/06/2024 1:41 AM EDT [facility] Comment:Reported eGFRcr in m L/min/1.73m2 is based the CKD-EPI 2020 equation that does not use a race coefficient. Blood Venous blood specimen / Unknown Venipuncture / Unknown 11/06/2024 1:07 AM EDT 11/06/2024 1:12 AM EDT us Nathaly Nowak MD LAB BLOOD ORDERABLES Final Resu lt [facility] [address] [place] [address] * Phosphorus (11/06/2024 1:07 AM EDT) Phosphorus, Plasma 3.2 2.5 - 4.5 mg/dL 11/06/2024 1:41 AM EDT [facility] Blood Venous blood specimen / Unknown Venipuncture / Unknown 11/06/2024 1:07 AM EDT 11/06/2024 1:12 AM EDT us Nathaly Nowak MD LAB BLOOD ORDERABLES Final Resu lt Performing Organization Address City/[facility]/ZIP Co de Phone Number [facility] [address] [place] [address] * Magnesium (11/06/2024 1:07 AM EDT) Magnesium, Plasma 2.2 1.9 - 2.4 mg/dL 11/06/2024 1:41 AM EDT [facility] Blood Venous blood specimen / Unknown Venipuncture / Unknown 11/06/2024 1:07 AM EDT 11/06/2024 1:12 AM EDT us Nathaly Nowak MD LAB BLOOD ORDERABLES Final Resu lt Performing Organization Address [facility] Co de Phone Number [facility] [address] [place] [address] * (ABNORMAL) CBC (11/06/2024 1:07 AM EDT) WBC Count 9.70 3.70 - 10.30 10*3/uL LAB HEMATOLOGY METHOD 11/06/2024 1:19 AM EDT [facility] RBC Count 2.89(L) 4.60 - 6.10 10*6/uL LAB HEMATOLOGY METHOD 11/06/2024 1:19 AM EDT [facility] HGB 8.8(L) 13.7 - 17.5 g/dL LAB HEMATOLOGY METHOD 11/06/2024 1:19 AM EDT [facility] HCT 26.2(L) 40.0 - 51.0 % LAB HEMATOLOGY METHOD 11/06/2024 1:19 AM EDT [facility] Platelet Count 542(H) 155 - 369 10*3/uL LAB HEMATOLOGY METHOD 11/06/2024 1:19 AM EDT [facility] MCV 91 79 - 98 fL LAB HEMATOLOGY METHOD 11/06/2024 1:19 AM EDT [facility] MCH 30.4 26.0 - 32.0 pg LAB HEMATOLOGY METHOD 11/06/2024 1:19 AM EDT [facility] MCHC 33.6 30.7 - 35.5 g/dL LAB HEMATOLOGY METHOD 11/06/2024 1:19 AM EDT [facility] RDW 13.2 11.5 - 14.5 % LAB HEMATOLOGY METHOD 11/06/2024 1:19 AM EDT [facility] MPV 8.7(L) 8.8 - 12.5 fL LAB HEMATOLOGY METHOD 11/06/2024 1:19 AM EDT [facility] nRBC 0.0 <=0.0 per 100 WBCs LAB HEMATOLOGY METHOD 11/06/2024 1:19 AM EDT [facility] Blood Venous blood specimen / Unknown Venipuncture / Unknown 11/06/2024 1:07 AM EDT 11/06/2024 1:12 AM EDT us Nathaly Nowak MD LAB BLOOD ORDERABLES Final Resu lt Performing Organization Address City/[facility]/ZIP Co de Phone Number [facility] [address] [place] [address] * Gold Top (11/06/2024 12:58 AM EDT) Extra Hold for add-ons 11/06/2024 3:21 AM EDT [facility] Comment:Auto resulted. Blood Venous blood specimen / Unknown 11/06/2024 12:58 AM EDT 11/06/2024 1:13 AM EDT us Nathaly Nowak MD LAB BLOOD ORDERABLES Final Resu lt [facility] [address] [place] [address] * Gold Top (11/06/2024 12:58 AM EDT) Extra Hold for add-ons 11/06/2024 3:21 AM EDT [facility] Comment:Auto resulted. Blood Venous blood specimen / Unknown 11/06/2024 12:58 AM EDT 11/06/2024 1:13 AM EDT us Nathaly Nowak MD LAB BLOOD ORDERABLES Final Resu lt Performing Organization Address City/[facility]/ZIP Co de Phone Number [facility] [address] [place] [address] * Light Green Top (11/06/2024 12:58 AM EDT) Extra Hold for add-ons 11/06/2024 3:21 AM EDT [facility] Comment:Auto resulted. Blood Venous blood specimen / Unknown 11/06/2024 12:58 AM EDT 11/06/2024 1:13 AM EDT us Nathaly Nowak MD LAB BLOOD ORDERABLES Final Resu lt Performing Organization Address [facility] Co de Phone Number [facility] [address] [place] [address] * Light Blue Top (11/06/2024 12:58 AM EDT) Extra Hold for add-ons 11/06/2024 3:21 AM EDT [facility] Comment:Auto resulted. Blood Venous blood specimen / Unknown 11/06/2024 12:58 AM EDT 11/06/2024 1:13 AM EDT us Nathaly Nowak MD LAB BLOOD ORDERABLES Final Resu lt Performing Organization Address [facility]/ZIP Co de Phone Number [facility] [address] [place] [address] * Light Blue Top (11/06/2024 12:58 AM EDT) Extra Hold for add-ons 11/06/2024 3:21 AM EDT [facility] Comment:Auto resulted. Blood Venous blood specimen / Unknown 11/06/2024 12:58 AM EDT 11/06/2024 1:13 AM EDT us Nathaly Nowak MD LAB BLOOD ORDERABLES Final Resu lt [facility] [address] [place] [address] * (ABNORMAL) POCT glucose meter (11/06/2024 12:45 [...] Comment 11/06/2024 12:48 AM EDT [facility] Multifocal Button Inspector ID Raj Laird 11/07/19 12:48 AM EDT [facility] Device ID [id number] 11/06/2024 12:48 AM EDT [facility] Specimen Type POC Capillary 11/06/2024 12:48 AM EDT [facility] Blood Capillary blood specimen / Unknown 11/06/2024 12:45 AM EDT 11/06/2024 12:48 AM EDT Nathaly Nowak MD LAB POINT OF CARE TE ST DOCKED DEVICE UNSOLICITED RESULTS Final Result [facility] [address] [place] [address] documented in this encounter Visit Diagnoses Diagnosis [...] Starting on Mon11/06/24 at 0031, Until [facility] 11/14/24 at 1804, Routine, line care sodium [...] Starting on Mon11/06/24 at 0753, Until [facility] 11/14/24 at 1804, Routine, On Unit - Preprocedure, line care sodium chloride 0.9 % flush 10 mL 10 mL, Intravenous, Every 12 hours, First dose on [facility] [[email or web address] 11/09/24 at 1515, Until Discontinued, Routine Given 11/14/2024 2:42 PM EDT 10 mL Given 11/14/2024 3:03 AM EDT 10 mL Given 11/13/2024 4:43 PM EDT 10 mL Sodium Hypochlorite (Dakin's (HALF-Strength)) external solution 1 Application Irrigation, Daily, First dose on [facility] [[email or web address] 11/09/24 at 0945, Until Discontinued, Routine Given [...] Starting on Yadira 11/14/24 at 0922, Until Yadiar 11/14/24 at 1804, Routine, moderate pain, severe [...] documented as of this encounter Care Teams Machine Tool 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
--- OUTSIDE RECORDS SUMMARY | 2024-11-06 10:08 | XMS_ITS | Encounter Summary ---
Author Organization Healthcare Address [address] [place] [address] Care Team Providers Care Scarf Gluer Name Role Phone Asad Victor MD Primary Care Provider + [phone] Reason for Visit * Reason Comments Post-op Problem Wound Check * Auth/Cert (Routine) Specialty Diagnoses / Procedures Referred By Contac t Referred To Contact Diagnoses Wound infection Post-op Vasc Sx wounds - sx on 10/17 at Nahtaly Nowak MD [address] [address] Phone: tel: fax: [facility] Emergency Department [address] [place] [address] Phone: tel: Referral ID Status Reason Start Date Expiration Date Visits Re quested Visits Authorized [id number] 1 1 Encounter Details Date Type Department Care Team (Late st Contact Info) Description 11/06/2024 10:08 AM EDT - 11/06/2024 11:38 AM EDT Surgery [facility] OPERATING ROOM [address] [place] [address] Nathaly Nowak MD [id number] [place] [address] Left groin exploration and washout, [...] any time in the past 12 m [facility], were you homeless or living in a nursing home (including now)? No 11/07/2024 CAGE ASSESSMENT [...] drink first t dino in the morning (EYE-EQUIPMENT INSTALLER) to steady your nerves or to get rid of a hangover? 0 10/18/2021 CAGE Questionnaire Score 0 022 Utilities Answer Date Recorded In the past 12 months has [employer], gas, oil, or water [employer] threatened to shut off services in your [...] Carmona with any questions or concerns at [phone]. It is important that you get your [...] Note Bev Borja 64 y.o. male CSN: [id number] Admission: 11/05/2024 9:45 PM Primary Problem: Wound infection Primary Mechanical Drafter: Primary Caregiver: Self Assistance Available at Discharge: [...] in last 30 days Follow-up: [facility] [address] [facility] [address] Go to Infusion Clinic. Please arrive at 11 am daily. [facility] [address] Go to Wound care clinic. First appointment is 1:10 pm. Please call [phone] with scheduling concerns. Discharge Transportation: Transportation Anticipated: medical transport Transportation Home at Discharge: Medical Transport Follow Up Transport: Transportation Needed to Follow up Appoinments: Medical Transport Additional Comments: Patient discharging home. No other SW needs identified. Mariia Monterroso NATURAL GAS TECHNICIAN * Discharge Summary - Melecio Echevarria DO - 11/14/2024 12:46 PM EDT Hospitalization Admit Date/Time: 11/05/2024 9:45 PM Admitting Attending: Nathaly Nowak Discharge Date: 11/14/2024 Discharge Attending Physician: Nathaly Nowak MD PCP name and Address: Asad Victor MD (Inactive) [address] [place] [address] / [place] [address] Referring provider name and address: Wade Cowart, DO [address] [place] [address] Chief Concern, Brief History of Present Illness, [...] Your Medications These medications were sent to [facility] Infusion Services - GLENDA Solorzano - [address], [place] [address] ertapenem injection micafungin injection Discharge Diagnosis Medical [...] Time Provider Department Center 11/26/2024 2:00 PM [facility] 11/26/2024 2:30 PM [facility] 11/26/2024 3:20 PM Elisabet Schuster PA [facility] 11/29/2024 2:30 PM Oscar [...] portions of the procedure(s) and immediately available [facility] services the entire duration. See resident note for details. * Progress Notes - Mariia Monterroso - 11/13/2024 1:57 PM EDT Case Management Adult Progress Note Bev Borja 64 y.o. male CSN: [id number] Admission: 11/05/2024 9:45 PM Primary Problem: Wound infection Wound vac to be delivered today by at bedside. SW sent referral/orders to [facility] wound care center (fax [phone]) and infusion clinic (fax [phone]). Plan to discharge tomorrow. SW will continue to follow. Mariia Monterroso NATURAL GAS TECHNICIAN * Progress Notes - Bianca Knight PharmD - 11/13/2024 12:55 PM EDT Vancomycin therapy has been stopped per ID recommendation. Pharmacist will sign off from dosing and monitoring vancomycin. Please re- consult a pharmacist if more vancomycin is indicated. Bianca Knight PharmD, [facility] * Progress Notes - Ailin Levy [...] Lumen PICC Antimicrobial Regimen: IV Ertapenem 1g [id number] start date:11/06/2024 Projected End date:12/18/2024 IV Micafungin 150mg [id number] Start date: 11/12/2024 Projected End Date: 12/24/2024 [...] OPAT Team Attn: Dr Kraus Fax #: [phone] Appointments: (Dr Appiah 08/02/2024 at 2.30pm) at: [facility]: [address] [place] [address] (Select Option 3 for IV Antibiotic / PICC line related issues) For questions regarding OPAT prior to discharge, reach out to the OPAT team via [employer] Secure Chat (Group: OPAT Referral Team). For all questions regarding OPAT after discharge should be directed to the OPAT Team at (Select Option 3 for IV Antibiotics/PICC Issues) between 8am-5pm. After 5 pm, or during weekends/ holidays, please call the paging pulling unit operator at to reach the on-call [...] included. [facility] Department of Surgery Division of Vascular Surgery Surgery Progress Note 11/13/24 Bev Borja Subjective Subjective: HPI 64yoM PMHx COPD, T2DM, HLD, HTN, RLS, CAD s/p PCI (on Xarelto) s/p pacemaker c/b left SANDIP pseudoaneurysm s/p thrombin injection 09/21/24, CLI s/p left femoral endarterectomy with EIA/SYSTEMS TEST TECHNICIAN stenting 10/17/24, who presented to [facility] 11/05/2024 with wound infection. 11/06/24: [...] 09/21/24, CLI s/p left femoral endarterectomy with EIA/SYSTEMS TEST TECHNICIAN stenting 10/17/24, who presented to [facility] 11/05/2024 with wound infection. POD [...] the findings. Cardiac Device Check - PRE-OR [facility] EP-Device Clinic: Pre-operative CIED Report Assessment and Sara-Procedural Reommendations: Name: Bev Borja Date: 10/17/2024 : 1960 Age: 64 y.o. Patient has a Bariatric Physician: Berger LOBBY PORTER-PM Remaining battery longevity adequate. Lead integrity test [...] recommendations. Supporting reports can be found in [employer] media file. Micro: Susceptibility data from last [...] Units Date/Time Tissue Culture and Gram Stain [[id number]] (Abnormal) (Susceptibility) Collected: 11/06/24 1134 Order Status: Completed Specimen: Tissue from Other (specify site) Updated: 11/12/24 1334 Culture Moderate Growth 2+ Enterobacter cloacae complex Comment: This isolate has been identified using the FDA Approved [employer] CA System The organism value for this result has been updated. These results have been appended to the previously preliminary verified report. Edited result: Previously reported as Gram Negative Jesus on 11/07/2024 at 1434 EDT. 2+ Streptococcus mitis/oralis group Comment: This isolate has been identified using the FDA Approved MALDI [employer]itron[employer]yper CA System The organism value for this result has been updated. These results have been appended to the previously preliminary verified report. 2+ Pasteurella stomatis Comment: This result was determined by MALDI tof mass spectrometry using the Health-Connected database and is for research use only. [...] stewardship team. Comprehensive GI Panel by PCR [[id number]] (Normal) Collected: 11/12/24 0950 Order Status: Completed [...] if clinically indicated. Clostridiodes (Clostridium) difficile PCR [[id number]] (Normal) Collected: 11/12/24 0950 Order Status: Completed [...] high complexity clinical laboratory testing. Anaerobic Culture [[id number]] Collected: 11/06/24 1128 Order Status: Completed Specimen: Swab from Other (specify site) Updated: 11/12/24 1118 Culture No growth at day 4 Fungal Culture, Tissue and ISIDRO [[id number]] (Abnormal) Collected: 11/06/24 1134 Order Status: Completed Specimen: Tissue from Other (specify site) Updated: 11/12/24 1033 Culture Reading Mycological 4 Weeks Rare Bim Sana parapsilosis Comment: This isolate has been identified using the FDA Approved [employer]DI Positron[employer]yper CA System The organism value for this result has been updated. These results have been appended to the previously preliminary verified report. Edited result: Previously reported as Yeast on 11/11/2024 at 1317 EDT. ISIDRO No fungal elements seen Additional Susceptibilities and/or Identification [[id number]] Collected: 11/11/24 1240 Order Status: Completed Specimen: Tissue from Wound (specify site): Additional Susceptibilities and/or Identification [[id number]] Collected: 11/11/24 1238 Order Status: Completed Specimen: Tissue from Wound (specify site): Additional Susceptibilities and/or Identification [[id number]] Collected: 11/11/24 1237 Order Status: Completed Specimen: Tissue from Wound (specify site): AFB Culture, Non Respiratory Source and Acid Fast Stain [[id number]] Collected: 11/06/24 1134 Order Status: Completed Specimen: Tissue from Other (specify site) Updated: 11/11/24 0938 AFB Culture No Mycobacterial Growth <1 Week Acid Fast Stain No acid fast bacilli seen Blood Culture (Aerobic/Anaerobet Set) [[id number]] Collected: 11/06/24106 Order Status: Completed Specimen: Blood from AC, Left Updated: 11/11/24 0301 Culture No growth at day 5 Blood Culture (Aerobic/Anaerobet Set) [[id number]] Collected: 11/06/24106 Order Status: Completed Specimen: Blood [...] OSH. [facility] [...] to stay a facility, plan for [facility] daily IV abx. Plan for ID [...] mg 1,000 mg Oral q6h [facility] Anthony Reyes MD 1,000 mg [...] Prevent or Manage Pain Flowsheets (Taken 11/11/2024 3332 by Jonathan Vale RN) Sensory Stimulation Regulation: care clustered lighting decreased quiet environment promoted Medication Review/Management: medications reviewed * Consults - Anabel Ovalle RD - 11/12/2024 9:59 AM EDT Adult Nutrition Evaluation Note Bev Borja 64 y.o. male CSN: [id number] Room/Bed 682/682B Nutrition evaluation type: assessment Reason for evaluation: LOS Hospital course: 64 y.o. male with PMHx significant for COPD, CAD s/p PCI (on Xarelto) s/p pacemaker c/b left SANDIP pseudoaneurysm s/p thrombin injection 09/21/24, chronic limb ischemia s/p left femoralendarterectomy with external iliac/common femoral artery stenting 10/17/24, T2DM, HLD, HTN, RLS who presented to the [facility] on 11/05/2024 with problems with his [...] (194 lb 3.6 oz) BMI (Calculated): 30.41 Canon Body Weight (kg): 67.3 Percent Canon Body Weight: 131 Adjusted Body Weight (kg): [...] oz) Estimated Needs: Kcal/ K-30 Kcal Provided: 3915-3365 Kcal Needs Based On: Adjusted weight Gm Protein/ Kg : 1.2-1.5 Protein Provided: 87-108 Protein Needs Based On: Adjusted weight Metabolic Cart Study Results: Current Nutrition Intake: Diet Order: Adult Diet Diet Texture: Regular Adult Carbohydrate Restriction: Consistent CHO 1 (1541-0902 Jatinder, 65 g/meal) Percent Meals Eaten (%): avg 63% x 6 emals Diet Experience and Nutrition History: Diet Education Provided: Will monitor Pertinent home medications: clopidogrel, docusate sodium, Lantus, Humalog, lisinopril, metoprolol tartrate, pravastatin, rivaroxaban, ropinirole, tamsulosin Restorationist needs: Nutrition Focused Physical Exam: Physical exam [...] ENDARTERECTOMY N/A 2017 Endarterectomy Carotid Artery from [facility] CORONARY ANGIOPLASTY Left Coronary Angiography With Concomitant Left Heart Catheterization from [facility] CORONARY ARTERY BYPASS GRAFT N/A 2018 3V ELBOW SURGERY Right ENDARTERECTOMY Left 10/17/2024 common/SFA/Profunda thromboendarterectomy, EIA/SYSTEMS TEST TECHNICIAN stent HERNIA REPAIR KNEE ARTHROSCOPY Left VASCULAR SURGERY Left 09/21/2024 SYSTEMS TEST TECHNICIAN pseudoaneurym injection [3] Social History Tobacco Use [...] sodium chloride * Progress Notes - Reid Dainels MD - 11/12/2024 9:04 AM EDT Images from the original note were not included. [facility] Department of Surgery Division of Vascular Surgery Surgery Progress Note 11/12/24 Bev Perez Cristoferkeo Subjective Subjective: HPI 64yoM PMHx COPD, T2DM, HLD, HTN, RLS, CAD s/p PCI (on Xarelto) s/p pacemaker c/b left SANDIP pseudoaneurysm s/p thrombin injection 09/21/24, CLI s/p left femoral endarterectomy with EIA/SYSTEMS TEST TECHNICIAN stenting 10/17/24, who presented to [facility] 11/05/2024 with wound infection. 11/06/24: [...] 09/21/24, CLI s/p left femoral endarterectomy with EIA/SYSTEMS TEST TECHNICIAN stenting 10/17/24, who presented to [facility] 11/05/2024 with wound infection. POD [...] the findings. Cardiac Device Check - PRE[facility]: Pre-operative CIED Report Assessment and Sara-Procedural Reommendations: Name: Bev Borja Date: 10/17/2024 : 1960 Age: 64 y.o. Patient has a Bariatric Physician: XanEdu LOBBY PORTER-PM Remaining battery longevity adequate. Lead integrity test [...] recommendations. Supporting reports can be found in [employer] media file. Micro: Susceptibility data from last [...] Units Date/Time Tissue Culture and Gram Stain [[id number]] (Abnormal) (Susceptibility) Collected: 11/06/24 1134 Order Status: Completed Specimen: Tissue from Other (specify site) Updated: 11/12/24 1334 Culture Moderate Growth 2+ Enterobacter cloacae complex Comment: This isolate has been identified using the FDA Approved [employer] CA System The organism value for this result has been updated. These results have been appended to the previously preliminary verified report. Edited result: Previously reported as Gram Negative Jesus on 11/07/2024 at 1434 EDT. 2+ Streptococcus mitis/oralis group Comment: This isolate has been identified using the FDA Approved [employer] CA System The organism value for this result has been updated. These results have been appended to the previously preliminary verified report. 2+ Pasteurella stomatis Comment: This result was determined by MALDI tof mass spectrometry using the Health-Connected database and is for research use only. [...] stewardship team. Comprehensive GI Panel by PCR [[id number]] (Normal) Collected: 11/12/24 0950 Order Status: Completed [...] if clinically indicated. Clostridiodes (Clostridium) difficile PCR [[id number]] (Normal) Collected: 11/12/24 0950 Order Status: Completed [...] high complexity clinical laboratory testing. Anaerobic Culture [[id number]] Collected: 11/06/24 1128 Order Status: Completed Specimen: Swab from Other (specify site) Updated: 11/12/24 1118 Culture No growth at day 4 Fungal Culture, Tissue and ISIDRO [[id number]] (Abnormal) Collected: 11/06/24 1134 Order Status: Completed Specimen: Tissue from Other (specify site) Updated: 11/12/24 1033 Culture Reading Mycological 4 Weeks Rare Bim Sana parapsilosis Comment: This isolate has been identified using the FDA Approved [employer] CA System The organism value for this result has been updated. These results have been appended to the previously preliminary verified report. Edited result: Previously reported as Yeast on 11/11/2024 at 1317 EDT. ISIDRO No fungal elements seen Additional Susceptibilities and/or Identification [[id number]] Collected: 11/11/24 1240 Order Status: Completed Specimen: Tissue from Wound (specify site): Additional Susceptibilities and/or Identification [[id number]] Collected: 11/11/24 1238 Order Status: Completed Specimen: Tissue from Wound (specify site): Additional Susceptibilities and/or Identification [[id number]] Collected: 11/11/24 1237 Order Status: Completed Specimen: Tissue from Wound (specify site): AFB Culture, Non Respiratory Source and Acid Fast Stain [[id number]] Collected: 11/06/24 1134 Order Status: Completed Specimen: Tissue from Other (specify site) Updated: 11/11/24 0938 AFB Culture No Mycobacterial Growth <1 Week Acid Fast Stain No acid fast bacilli seen Blood Culture (Aerobic/Anaerobet Set) [[id number]] Collected: 11/06/24106 Order Status: Completed Specimen: Blood from AC, Left Updated: 11/11/24 0301 Culture No growth at day 5 Blood Culture (Aerobic/Anaerobet Set) [[id number]] Collected: 11/06/24106 Order Status: Completed Specimen: Blood [...] want to stay a facility, plan for [facility] daily IV abx. Plan [...] mg 1,000 mg Oral q6h [facility] Anthony Reyes MD 1,000 mg at 11/12/24 1356 aspirin chewable tablet 81 mg 81 mg Oral Daily Reid Daniels MD 81 mg at 11/12/24 0938 cefepime (Maxipime) 2 g in sodium chloride 0.9% 100 mL IVPB (vial adapter required) 2 g [id number] Reid Daniels MD 36.7 mL/hr at 11/12/24 [...] PM Anthony Reyes MD 0.4 mg at [id number] Vancomycin HCl in NaCl (Vancocin) IVPB 1,000 [...] send him home on micafungin as Rare Bim Sana parapsilosis grew and we do not [...] Outcome: Ongoing, Progressing Flowsheets Taken 11/11/20242336 by Jonathna Vale RN Progress: improving Taken 11/09/20242202 by [...] Isolation Precautions: protective Taken 11/10/20242222 by Eber Hansno RN Infection Management: aseptic technique maintained Problem: [...] portions of the procedure(s) and immediately available [facility] services the entire duration. See resident note for details. * Progress Notes - Mariia Monterroso - 11/11/2024 1:10 PM EDT Case Management Adult Progress Note Bev Borja 64 y.o. male CSN: [id number] Admission: 11/05/2024 9:45 PM Primary Problem: Wound infection Patient refusing inpatient placement for IV abx. [facility] infusion clinic can provide treatment. Face sheet, IV abx orders, and order for PICC care/labs/dressing changes need to be faxed to [phone]. Voicemail left with wound care clinic. Wound vac approved per , delivery pending. Crysll continue to follow. Mariia Monterroso NATURAL GAS TECHNICIAN * Progress Notes - Dotty Sethi MD [...] the findings. Cardiac Device Check - [facility]: Pre-operative CIED Report Assessment and Sara-Procedural Reommendations: Name: Bev Borja Date: 10/17/2024 : 1960 Age: 64 y.o. Patient has a Bariatric Physician: Berger LOBBY PORTER-PM Remaining battery longevity adequate. Lead integrity test [...] recommendations. Supporting reports can be found in [employer] media file. Micro: Susceptibility data from last [...] Non Respiratory Source and Acid Fast Stain [[id number]] Collected: 11/06/24 1134 Order Status: Completed Specimen: Tissue from Other (specify site) Updated: 11/11/24 0938 AFB Culture No Mycobacterial Growth <1 Week Acid Fast Stain No acid fast bacilli seen Blood Culture (Aerobic/Anaerobet Set) [[id number]] Collected: 11/06/24106 Order Status: Completed Specimen: Blood from AC, Left Updated: 11/11/24 0301 Culture No growth at day 5 Blood Culture (Aerobic/Anaerobet Set) [[id number]] Collected: 11/06/24 010 Order Status: Completed Specimen: Blood from Hand, Right Updated: 11/11/24 0249 Culture No growth at day 5 Anaerobic Culture [[id number]] Collected: 11/06/24 1128 Order Status: Completed Specimen: Swab from Other (specify site) Updated: 11/10/24 1441 Culture No growth at day 4 Routine Culture and Gram Stain [[id number]] Collected: 11/06/24 1128 Order Status: Completed Specimen: Swab from Other (specify site) Updated: 11/10/24 1124 Culture No growth at day 4 Gram Stain Result No organisms seen No polymorphonuclear leukocytes seen Anaerobic Culture [[id number]] (Abnormal) Collected: 11/06/24 112 Order Status: Completed Specimen: Swab from Other (specify site) Updated: 11/10/24 0718 Culture No anaerobes isolated Mixed skin clifton Comment: The organism value for this result has been updated. These results have been appended to the previously preliminary verified report. Narrative: Mixed Skin Clifton includes Streptococcus mitis/oralis group and Staphylococcus Pseudintermedius Anaerobic Culture [[id number]] (Abnormal) Collected: 11/06/24 1134 Order Status: Completed [...] OSH. [facility], [facility] [...] mL IVPB (vial adapter required) 2 g [id number] Reid Daniels MD 36.7 mL/hr at 11/11/24 [...] 10 mL 10 mL Intravenous q1h PRN Ried Daniels MD sodium chloride 0.9 % flush 20 mL 20 mL Intravenous q1h PRN Reid Daniels MD Sodium Hypochlorite (Dakin's (HALF-Strength)) external solution 1 Application 1 Application Irrigation Daily Reid Daniels MD 1 Application at 11/11/24825 tamsulosin (Flomax) 24 hr capsule 0.4 mg 0.4 mg Oral q PM Anthony Reyes MD 0.4 mg at [id number] Vancomycin HCl in NaCl (Vancocin) IVPB 1,000 [...] from the original note were not included. [facility] Department of Surgery Division of Vascular Surgery Surgery Progress Note 11/11/24 Bev Borja Subjective Subjective: HPI 64yoM PMHx COPD, T2DM, HLD, HTN, RLS, CAD s/p PCI (on Xarelto) s/p pacemaker c/b left SANDIP pseudoaneurysm s/p thrombin injection 09/21/24, CLI s/p left femoral endarterectomy with EIA/SYSTEMS TEST TECHNICIAN stenting 10/17/24, who presented to [facility] 11/05/2024 with wound infection. 11/06/24: [...] 09/21/24, CLI s/p left femoral endarterectomy with EIA/SYSTEMS TEST TECHNICIAN stenting 10/17/24, who presented to [facility] 11/05/2024 with wound infection. POD [...] Edited by: Reid Daniels MD at 11/11/2024 0848 Dispo: Continue Current Level of Care Reid [...] to follow, Submitted by: Kalpesh Lord PharmD, [facility] 11/10/2024 12:45 PM * Care Plan [...] 09/21/24, CLI s/p left femoral endarterectomy with EIA/SYSTEMS TEST TECHNICIAN stenting 10/17/24, who presented to [facility] 11/05/2024 with wound infection. 11/06/24: [...] 09/21/24, CLI s/p left femoral endarterectomy with EIA/SYSTEMS TEST TECHNICIAN stenting 10/17/24, who presented to [facility] 11/05/2024 with wound infection. POD [...] Barraza RN Authorized by: Nathaly Nowak MD [place] Protocol: Verbal consent obtained?: Yes Written consent [...] selection rationale: Left pacemaker Catheter Lot #: [id number] Catheter air boatswain: Buzz Referrals Catheter placed: Single lumen Catheter size: 4 [...] 09/21/24, CLI s/p left femoral endarterectomy with EIA/SYSTEMS TEST TECHNICIAN stenting 10/17/24, who presented to [facility] 11/05/2024 with wound infection. 11/06/24: [...] 09/21/24, CLI s/p left femoral endarterectomy with EIA/SYSTEMS TEST TECHNICIAN stenting 10/17/24, who presented to [facility] 11/05/2024 with wound infection. POD [...] Level of Care [place] M4 student [facility] Cosigned by Nathaly Nowak MD at 11/11/2024 [...] PT session. Patient reports he went to [facility] 12th floor via w/c yesterday [...] Mobility: Ambulatory- community (was utilizing scooter at [email or web address] since discharge) Mobility [place]: Independent gait with device History of Falls: [...] Mobility Bed Mobility Exam: Scooting/Bridging Level of [place]: Modified independence Bed Mobility Exam: Supine to Sit Level of Laporte: Modified [place] Transfers Transfer Exam: Sit to stand Level of [place]: Modified independence Assistive Device: Rollator Transfer Exam: Stand to Sit Level of [place]orte: Modified independence Assistive Device: Rollator Ambulation Device: [...] maintain/improve functional mobility and endurance. Standardized Assessments [facility] 6-Clicks Mobility Assessment Difficulty patient has [...] Mobility Ambulatory- community (was utilizing scooter at [email or web address] since discharge) Mobility [place] Independent gait with device History of Falls [...] distal to knee) BED MOBILITY Level of [place] Physical/Non-physical Assist Adaptive Equipment Utilized Scooting/ Bridging Modified independence Supine to Sit Modified [place] TRANSFERS Level of [place] Physical/Non-physical Assist Adaptive Equipment Utilized Sit to Stand Modified independence Rollator Stand to sit Modified independence Rollator Toilet Transfer Modified independence Grab bar FUNCTIONAL MOBILITY Ambulation Modified independent 200ft x2 with seated rest break between bouts; RPE 5-7/10. Cues forsafety with rollator brakes. Rollator Comments BALANCE Postural Appearance Posture: Within Functional Limits Level of [place] Balance Support Static Sit Independent Feet supported Dynamic Sit Independent Feet supported Static Stand Independent Right upper extremity support, Left upper extremity support (via rollator) Dynamic Stand Independent Right upper extremity support, Left upper extremity support (via rollator) STANDARDIZED ASSESSMENTS [facility] 6-Click Daily Activities Help from Other: Don/Doff Regular Lower Body Clothings: None Help From Other: Bathing: None Help From Other: Toileting: None Help From Other: Don/Doff Upper Body Clothings: None Help From Other: Grooming: None Help From Other: Eating Meals: None [facility] 6 Click - Daily Activities Score: [...] needed areas of treatment space. Level of [place] Interventions Grooming Modified independent Standing sinkside Pt [...] Note Bev Borja 64 y.o. male CSN: [id number] Admission: 11/05/2024 9:45 PM Primary Problem: Wound [...] follow and assist as needed. Mariia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 6:51 AM EDT [facility] Blood Venous blood specimen / Unknown Venipuncture / Unknown 11/13/2024 6:37 AM EDT 11/13/2024 6:44 AM EDT us Nathaly Nowak MD LAB BLOOD ORDERABLES Final Resu lt [facility] [address] [place] [address] * (ABNORMAL) Basic Metabolic Panel, Plasma (11/13/2024 6:37 AM EDT) Glucose, Plasma 200(H) 74 - 99 mg/dL 11/13/2024 7:16 AM EDT [facility] BUN, Plasma 10 8 - 23 mg/dL 11/13/2024 7:16 AM EDT [facility] Creatinine, Plasma 0.68(L) 0.70 - 1.20 mg/dL 11/13/2024 7:16 AM EDT [facility] BUN/Creatinine Ratio 15 11/13/2024 7:16 AM EDT [facility] Sodium, Plasma 135(L) 136 - 145 mmol/L 11/13/2024 7:16 AM EDT [facility] Potassium, Plasma 3.9 3.6 - 4.9 mmol/L 11/13/2024 7:16 AM EDT [facility] Chloride, Plasma 107 97 - 107 mmol/L 11/13/2024 7:16 AM EDT [facility] CO2, Plasma 21(L) 22 - 29 mmol/L 11/13/2024 7:16 AM EDT [facility] Anion Gap 7 6 - 16 mmol/L 11/13/2024 7:16 AM EDT [facility] Total Calcium, Plasma 8.1(L) 8.9 - 10.2 mg/dL 11/13/2024 7:16 AM EDT [facility] eGFRcr 103.2 mL/min/1.7 3m*2 11/13/2024 7:16 AM EDT [facility] Comment:Reported eGFRcr in m L/min/1.73m2 is based the CKD-EPI 2020 equation that does not use a race coefficient. Blood Venous blood specimen / Unknown Venipuncture / Unknown 11/13/2024 6:37 AM EDT 11/13/2024 6:44 AM EDT us Nathaly Nowak MD LAB BLOOD ORDERABLES Final Resu lt [facility] [address] [place] [address] * (ABNORMAL) POCT glucose meter (11/12/2024 8:27 [...] Comment 11/12/2024 8:29 PM EDT [facility]ALTHCARE LAB Keyboard Operator ID Nelda Gerber 11/13/19 8:29 PM EDT HEALTHCARE LAB Device ID [id number] 11/12/2024 8:29 PM EDT [facility]ALTHCARE LAB Specimen Type POC Capillary 11/12/2024 8:29 PM EDT [facility] Blood Capillary blood specimen / Unknown 11/12/2024 8:27 PM EDT 11/12/2024 8:29 PM EDT Nathaly Nowak MD LAB POINT OF CARE TE ST DOCKED DEVICE UNSOLICITED RESULTS Final Result Performing Organization Address City/State/[facility] Co de Phone Number [facility] [address] [place] [address] * (ABNORMAL) POCT glucose meter (11/12/2024 5:08 PM EDT) [facility] POCT Glucose 157(H) 74 - 99 mg/dL 11/12/2024 5:10 PM EDT HEALTHCARE LAB Comment:Accuracy of a [...] Comment 11/12/2024 5:10 PM EDT HEALTHCARE LAB Keyboard Operator ID Wade Feliciano 5:10 PM EDT HEALTHCARE LAB Device ID [id number] 11/12/2024 5:10 PM EDT [facility]ALTHCARE LAB Specimen Type POC Capillary 11/12/2024 5:10 PM EDT [facility] Blood Capillary blood specimen / Unknown 11/12/2024 5:08 PM EDT 11/12/2024 5:10 PM EDT us Nathaly Nowak MD LAB POINT OF CARE TE ST DOCKED DEVICE UNSOLICITED RESULTS Final Result [facility] [address] [place] [address] * (ABNORMAL) POCT glucose meter (11/12/2024 12:36 [...] Comment 11/12/2024 12:38 PM EDT HEALTHCARE LAB Keyboard Operator ID Wade Feliciano 12:38 PM EDT HEALTHCARE LAB Device ID [id number] 11/12/2024 12:38 PM EDT [facility] Specimen Type POC Capillary 11/12/2024 12:38 PM EDT [facility] Blood Capillary blood specimen / Unknown 11/12/2024 12:36 PM EDT 11/12/2024 12:38 PM EDT us Nathaly Nowak MD LAB POINT OF CARE TE ST DOCKED DEVICE UNSOLICITED RESULTS Final Result Performing Organization Address City/[facility]/ZIP Co de Phone Number [facility]ALTHCARE LAB [address] [place] [address] * Clostridiodes (Clostridium) difficile PCR (11/12/2024 9:50 AM EDT) C difficile PCR toxin B gene DNA Result Not Detected Not Detected 11/12/2024 11:54 AM EDT [facility] Stool Rectum structure / Unknown Non-blood Collection / Unknown 11/12/2024 9:50 AM EDT 11/12/2024 10:04 AM EDT Narrative [facility] - 11/12/2024 11:54 [...] - [facility] Final Result [facility] [address] [place] [address] * Comprehensive GI Panel by PCR (11/12/2024 9:50 AM EDT) Campylobacter PCR Result Not Detected Not Detected 11/12/2024 2:47 PM EDT [facility] Plesiomonas shigelloides PCR Result Not Detected Not Detected 11/12/2024 2:47 PM EDT [facility] Salmonella PCR Result Not Detected Not Detected 11/12/2024 2:47 PM EDT [facility] Vibrio species PCR Result Not Detected Not Detected 11/12/2024 2:47 PM EDT [facility] Vibrio cholerae PCR Result Not Detected Not Detected 11/12/2024 2:47 PM EDT [facility] Yersinia enterocolitica PCR Result Not Detected Not Detected 11/12/2024 2:[address] [facility] Enteroaggregative E. coli (EAEC) PCR Result Not Detected Not Detected 11/12/2024 2:[address] [facility] Enteropathogenic E. coli (EPEC) PCR Result Not Detected Not Detected 11/12/2024 2:47 PM EDT [facility] Enterotoxigenic E. coli (ETEC) lt/st PCR Result Not Detected Not Detected 11/12/2024 2:47 PM EDT [facility] Shiga-like Toxin-Producing E.coli (STEC) stx1/stx2 PCR Resu Not Detected Not Detected 11/12/2024 2:47 PM EDT [facility] E coli 0157 PCR Result Not Detected Not Detected 11/12/2024 2:47 PM EDT [facility] Shigella/Enteroinvas tam E. coli (EIEC) PCR Result Not Detected Not Detected 11/12/2024 2:47 PM EDT [facility] Cryptosporidium PCR Result Not Detected Not Detected 11/12/2024 2:47 PM EDT [facility] Cyclospora cayetanensis PCR Result Not Detected Not Detected 11/12/2024 2:47 PM EDT [facility] Entamoeba histolytica PCR Result Not Detected Not Detected 11/12/2024 2:47 PM EDT [facility] Giardia duodenalis (aka Giardia lamblia) PCR Result Not Detected Not Detected 11/12/2024 2:47 PM EDT [facility] Adenovirus F 40/41 PCR Result Not Detected Not Detected 11/12/2024 2:47 PM EDT [facility] Astrovirus PCR Result Not Detected Not Detected 11/12/2024 2:47 PM EDT [facility] Norovirus GI/GII PCR Result Not Detected Not Detected 11/12/2024 2:47 PM EDT [facility] Rotavirus A PCR Result Not Detected Not Detected 11/12/2024 2:47 PM EDT [facility] Sapovirus PCR Result Not Detected Not Detected 11/12/2024 2:47 PM EDT [facility] Stool Rectum structure / Unknown Non-blood Collection / Unknown 11/12/2024 9:50 AM EDT 11/12/2024 10:04 AM EDT Narrative [facility] - 11/12/2024 2:47 PM [...] ORDE RABLES Final Result Performing Organization Address City/[facility]/ZIP Co de Phone Number [facility] [address] [place] [address] * C-reactive protein (11/12/2024 9:48 AM EDT) [facility] CRP, Plasma <3.0 <=8.0 mg/L 11/12/2024 10:28 AM EDT [facility] Blood Venous blood specimen / Unknown Venipuncture / Unknown 11/12/2024 9:48 AM EDT 11/12/2024 9:59 AM EDT [facility] - 11/12/2024 10:28 AM EDT This CRP test is appropriate for assessment of infection, systemic inflammation and/or tissue injury. To assess cardiovascular disease risk order high sensitivity CRP (CRPH). Nathaly Nowak MD LAB BLOOD ORDERABLES Final Resu lt Performing Organization Address [facility] Co de Phone Number [facility] [address] [place] [address] * (ABNORMAL) POCT glucose meter (11/12/2024 8:20 AM EDT) [facility] POCT Glucose 138(H) 74 - [...] 11/12/2024 8:21 AM EDT [facility] Keyboard Operator ID Wade Feliciano 8:21 AM EDT HEALTHCARE LAB Device ID [id number] 11/12/2024 8:21 AM EDT HEALTHCARE LAB Specimen Type POC Capillary 11/12/2024 8:21 AM EDT [facility]ALTH[facility]ARE LAB Blood Capillary blood specimen / Unknown 11/12/2024 8:20 AM EDT 11/12/2024 8:21 AM EDT Nathaly Nowak MD LAB POINT OF CARE TE ST DOCKED DEVICE UNSOLICITED RESULTS Final Result Performing Organization Address [facility] de Phone Number [facility] [address] [place] [address] * (ABNORMAL) POCT glucose meter (11/11/2024 8:18 PM EDT) Pathologist [facility] POCT Glucose 248(H) 74 - 99 [...] Comment 11/11/2024 8:20 PM EDT HEALTHCARE LAB Keyboard Operator ID Nelda Gerber 11/12/19 8:20 PM EDT [facility] Device ID [id number] 11/11/2024 8:20 PM EDT [facility] Specimen Type POC Capillary 11/11/2024 8:20 PM EDT [facility] Blood Capillary blood specimen / Unknown 11/11/2024 8:18 PM EDT 11/11/2024 8:20 PM EDT us Nathaly Nowak MD LAB POINT OF CARE TE ST DOCKED DEVICE UNSOLICITED RESULTS Final Result Performing Organization Address City/[facility] de Phone Number HEALTHCARE LAB [address] [place] [address] * (ABNORMAL) POCT glucose meter (11/11/2024 5:59 [...] Comment 11/11/2024 6:01 PM EDT [facility]ALTHCARE LAB Keyboard Operator ID BradenWade 6:01 PM EDT HEALTHCARE LAB Device ID [id number] 11/11/2024 6:01 PM EDT HEALTH[facility]ARE LAB Specimen Type POC Capillary 11/11/2024 6:01 PM EDT [facility] LAB Blood Capillary blood specimen / Unknown 11/11/2024 5:59 PM EDT 11/11/2024 6:01 PM EDT us Nathaly Nowak MD LAB POINT OF CARE TE ST DOCKED DEVICE UNSOLICITED RESULTS Final Result Performing Organization Address [facility] de Phone Number HEALTHCARE LAB [address] [place] [address] * POCT glucose meter (11/11/2024 5:20 PM EDT) [facility] POCT Glucose 84 74 - [...] Comment 11/11/2024 5:22 PM EDT HEALTHCARE LAB Keyboard Operator ID Wade Feliciano 5:22 PM EDT [facility] Device ID [id number] 11/11/2024 5:22 PM EDT [facility] Specimen Type POC Capillary 11/11/2024 5:22 PM EDT [facility]ALTH[facility] LAB Blood Capillary blood specimen / Unknown 11/11/2024 5:20 PM EDT 11/11/2024 5:22 PM EDT us Nathaly Nowak MD LAB POINT OF CARE TE ST DOCKED DEVICE UNSOLICITED RESULTS Final Result Performing Organization Address City/[facility] Co de Phone Number [facility]CARE LAB [address] [place] [address] * OR NEGATIVE PRESSURE WOUND THERAPY DME [...] POCT glucose meter (11/11/2024 12:08 PM EDT) [facility] POCT Glucose 226(H) 74 - [...] Comment 11/11/2024 12:10 PM EDT HEALTHCARE LAB Keyboard Operator ID Braden Wade Tobias 12:10 PM EDT [facility] Device ID [id number] 11/11/2024 12:10 PM EDT HEALTHCARE LAB Specimen Type POC Capillary 11/11/2024 12:10 PM EDT [facility]ALTH[facility]ARE LAB Blood Capillary blood specimen / Unknown 11/11/2024 12:08 PM EDT 11/11/2024 12:10 PM EDT Nathaly Nowak MD LAB POINT OF CARE TE ST DOCKED DEVICE UNSOLICITED RESULTS Final Result [facility] [address] [place] [address] * (ABNORMAL) POCT glucose meter (11/11/2024 9:08 [...] for testing. Comment 11/11/2024 9:09 AM EDT [facility] Keyboard Operator ID Wade Feliciano 9:09 AM EDT [facility] Device ID [id number] 11/11/2024 9:09 AM EDT [facility] Specimen Type POC Capillary 11/11/2024 9:09 AM EDT [facility] Blood Capillary blood specimen / Unknown 11/11/2024 9:08 AM EDT 11/11/2024 9:09 AM EDT Nathaly Nowak MD LAB POINT OF CARE TE ST DOCKED DEVICE UNSOLICITED RESULTS Final Result [facility] [address] [place] [address] * POCT glucose meter (11/11/2024 8:27 AM EDT) Pathologist [facility] POCT Glucose 87 74 - 99 [...] Comment 11/11/2024 8:28 AM EDT HEALTHCARE LAB Keyboard Operator ID Wade Feliciano 8:28 AM EDT HEALTHCARE LAB Device ID [id number] 11/11/2024 8:28 AM EDT [facility]ALTH[facility]ARE LAB Specimen Type POC Capillary 11/11/2024 8:28 AM EDT [facility] Blood Capillary blood specimen / Unknown 11/11/2024 8:27 AM EDT 11/11/2024 8:28 AM EDT us Nathaly Nowak MD LAB POINT OF CARE TE ST DOCKED DEVICE UNSOLICITED RESULTS Final Result [facility] [address] [place] [address] * (ABNORMAL) Basic Metabolic Panel, Plasma (11/11/2024 1:12 AM EDT) Glucose, Plasma 122(H) 74 - 99 mg/dL 11/11/2024 1:12 AM EDT [facility] BUN, Plasma 10 8 - 23 mg/dL 11/11/2024 1:12 AM EDT [facility] Creatinine, Plasma 0.82 0.70 - 1.20 mg/dL 11/11/2024 1:12 AM EDT [facility] BUN/Creatinine Ratio 12 11/11/2024 1:12 AM EDT [facility] Sodium, Plasma 137 136 - 145 mmol/L 11/11/2024 1:12 AM EDT [facility] Potassium, Plasma 3.9 3.6 - 4.9 mmol/L 11/11/2024 1:12 AM EDT [facility] Chloride, Plasma 110(H) 97 - 107 mmol/L 11/11/2024 1:12 AM EDT [facility] CO2, Plasma 20(L) 22 - 29 mmol/L 11/11/2024 1:12 AM EDT [facility] Anion Gap 7 6 - 16 mmol/L 11/11/2024 1:12 AM EDT [facility] Total Calcium, Plasma 7.6(L) 8.9 - 10.2 mg/dL 11/11/2024 1:12 AM EDT [facility] eGFRcr 97.5 mL/min/1.7 3m*2 11/11/2024 1:12 AM EDT [facility] Comment:Reported eGFRcr in m L/min/1.73m2 is based the CKD-EPI 2020 equation that does not use a race coefficient. Blood Venous blood specimen / Unknown 11/11/2024 12:42 AM EDT us Nathaly Nowak MD LAB BLOOD ORDERABLES Final Resu lt [facility] [address] [place] [address] * (ABNORMAL) CBC W/O Differential (11/11/2024 12:56 AM EDT) WBC Count 11.83(H) 3.70 - 10.30 10*3/uL LAB HEMATOLOGY METHOD 11/11/2024 12:56 AM EDT [facility] RBC Count 2.97(L) 4.60 - 6.10 10*6/uL LAB HEMATOLOGY METHOD 11/11/2024 12:56 AM EDT [facility] HGB 8.9(L) 13.7 - 17.5 g/dL LAB HEMATOLOGY METHOD 11/11/2024 12:56 AM EDT [facility] HCT 27.2(L) 40.0 - 51.0 % LAB HEMATOLOGY METHOD 11/11/2024 12:56 AM EDT [facility] Platelet Count 444(H) 155 - 369 10*3/uL LAB HEMATOLOGY METHOD 11/11/2024 12:56 AM EDT [facility] MCV 92 79 - 98 fL LAB HEMATOLOGY METHOD 11/11/2024 12:56 AM EDT [facility] MCH 30.0 26.0 - 32.0 pg LAB HEMATOLOGY METHOD 11/11/2024 12:56 AM EDT [facility] MCHC 32.7 30.7 - 35.5 g/dL LAB HEMATOLOGY METHOD 11/11/2024 12:56 AM EDT [facility] RDW 13.3 11.5 - 14.5 % LAB HEMATOLOGY METHOD 11/11/2024 12:56 AM EDT [facility] MPV 9.0 8.8 - 12.5 fL LAB HEMATOLOGY METHOD 11/11/2024 12:56 AM EDT [facility] nRBC 0.0 <=0.0 per 100 WBCs LAB HEMATOLOGY METHOD 11/11/2024 12:56 AM EDT [facility] Blood Venous blood specimen / Unknown 11/11/2024 12:42 AM EDT us Nathaly Nowak MD LAB BLOOD ORDERABLES Final Resu lt [facility] [address] [place] [address] * (ABNORMAL) POCT glucose meter (11/10/2024 8:25 [...] Comment 11/10/2024 8:28 PM EDT [facility]ALTHCARE LAB Keyboard Operator ID Nelda Gerber 11/11/19 8:28 PM EDT HEALTHCARE LAB Device ID [id number] 11/10/2024 8:28 PM EDT [facility]ALTH[facility]ARE LAB Specimen Type POC Capillary 11/10/2024 8:28 PM EDT [facility] Blood Capillary blood specimen / Unknown 11/10/2024 8:25 PM EDT 11/10/2024 8:28 PM EDT us Nathaly Nowak MD LAB POINT OF CARE TE ST DOCKED DEVICE UNSOLICITED RESULTS Final Result [facility] [address] [place] [address] * (ABNORMAL) POCT glucose meter (11/10/2024 4:45 [...] Comment 11/10/2024 4:47 PM EDT [facility]ALTHCARE LAB Keyboard Operator ID Esperanza Parks 11/10/2024 4:47 PM EDT [facility] Device ID [id number] 11/10/2024 4:47 PM EDT HEALTHCARE LAB Specimen Type POC Capillary 11/10/2024 4:47 PM EDT [facility] Blood Capillary blood specimen / Unknown 11/10/2024 4:45 PM EDT 11/10/2024 4:47 PM EDT Nathaly Nowak MD LAB POINT OF CARE TE ST DOCKED DEVICE UNSOLICITED RESULTS Final Result Performing Organization Address City/State/[facility] Co de Phone Number HEALTHCARE LAB [address] [place] [address] * (ABNORMAL) POCT glucose meter (11/10/2024 12:13 PM EDT) [facility] POCT Glucose 131(H) 74 - [...] Comment 11/10/2024 12:14 PM EDT [facility]ALTHCARE LAB Keyboard Operator ID Esperanza Parks 11/10/2024 12:14 PM EDT [facility] Device ID [id number] 11/10/2024 12:14 PM EDT [facility] Specimen Type POC Capillary 11/10/2024 12:14 PM EDT [facility]ALTH[facility] Blood Capillary blood specimen / Unknown 11/10/2024 12:13 PM EDT 11/10/2024 12:14 PM EDT us Nathaly Nowak MD LAB POINT OF CARE TE ST DOCKED DEVICE UNSOLICITED RESULTS Final Result Performing Organization Address [facility] Co de Phone Number [facility] [address] [place] [address] * Vancomycin, Peak, Plasma Please draw ~2 hours after 0800 dose of vancomycin finishes infusing. Consider obtaining level via peripheral stick. If peripheral stick is not feasible, please ensure that line is flushed well prior to drawing level. Than... (11/10/2024 10:56 AM EDT) [facility] Vancomycin, Peak, Plasma 23.8 20.0 - 40.0 ug/mL 11/10/2024 11:25 AM EDT [facility] Blood Venous blood specimen / Unknown Venipuncture / Unknown 11/10/2024 10:56 AM EDT 11/10/2024 11:00 AM EDT Narrative [facility] - 11/10/2024 11:25 AM EDT Therapeutic Peak level: 20-40ug/mL Supra-therapeutic Peak level: >40 ug/mL us Abigail Seay MD LAB BLOOD ORDERABLES Final Res ult Performing Organization Address [facility] Co de Phone Number [facility] [address] [place] [address] * (ABNORMAL) POCT glucose meter (11/10/2024 8:03 AM EDT) [facility] POCT Glucose 174(H) 74 - 99 mg/dL 11/10/2024 8:04 AM EDT [email or web address] Comment:Accuracy of a glucos e result [...] for testing. Comment 11/10/2024 8:04 AM EDT [facility] Keyboard Operator ID Esperanza Parks 11/10/2024 8:04 AM EDT [facility] Device ID [id number] 11/10/2024 8:04 AM EDT HEALTHCARE LAB Specimen Type POC Capillary 11/10/2024 8:04 AM EDT [facility] Blood Capillary blood specimen / Unknown 11/10/2024 8:03 AM EDT 11/10/2024 8:04 AM EDT Nathaly Nowak MD LAB POINT OF CARE TE ST DOCKED DEVICE UNSOLICITED RESULTS Final Result Performing Organization Address [facility] Co de Phone Number [facility] [address] [place] [address] * Vancomycin, Trough, Plasma Please draw ~30 minutes prior to dose due at 0800 on 11/10. Please do NOThold dose awaiting level to return. Consider obtaining level via peripheral stick. If peripheral stick is not feasible, please ensure that line is... (11/10/2024 7:27 AM EDT) Vancomycin, Trough, Plasma 16.2 10.0 - 20.0 ug/mL 11/10/2024 8:24 AM EDT [facility] Blood Venous blood specimen / Unknown Venipuncture / Unknown 11/10/2024 7:27 AM EDT 11/10/2024 7:51 AM EDT Narrative [facility] - 11/10/2024 8:24 AM EDT Therapeutic Trough level: 10-20ug/mL Supra-therapeutic Trough level: >20 ug/mL us Abigail Seay MD LAB BLOOD ORDERABLES Final Res ult Performing Organization Address City/[facility]/ZIP Co de Phone Number [facility] [address] [place] [address] * (ABNORMAL) CBC and Differential (11/10/2024 12:31 AM EDT) WBC Count 10.80(H) 3.70 - 10.30 10*3/uL LAB HEMATOLOGY METHOD 11/10/2024 12:53 AM EDT [facility] RBC Count 3.06(L) 4.60 - 6.10 10*6/uL LAB HEMATOLOGY METHOD 11/10/2024 12:53 AM EDT [facility] HGB 9.1(L) 13.7 - 17.5 g/dL LAB HEMATOLOGY METHOD 11/10/2024 12:53 AM EDT [facility] HCT 28.0(L) 40.0 - 51.0 % LAB HEMATOLOGY METHOD 11/10/2024 12:53 AM EDT [facility] Platelet Count 501(H) 155 - 369 10*3/uL LAB HEMATOLOGY METHOD 11/10/2024 12:53 AM EDT [facility] MCV 92 79 - 98 fL LAB HEMATOLOGY METHOD 11/10/2024 12:53 AM EDT [facility] MCH 29.7 26.0 - 32.0 pg LAB HEMATOLOGY METHOD 11/10/2024 12:53 AM EDT [facility] MCHC 32.5 30.7 - 35.5 g/dL LAB HEMATOLOGY METHOD 11/10/2024 12:53 AM EDT [facility] RDW 13.2 11.5 - 14.5 % LAB HEMATOLOGY METHOD 11/10/2024 12:53 AM EDT [facility] MPV 8.8 8.8 - 12.5 fL LAB HEMATOLOGY METHOD 11/10/2024 12:53 AM EDT [facility] nRBC 0.0 <=0.0 per 100 WBCs LAB HEMATOLOGY METHOD 11/10/2024 12:53 AM EDT [facility] Differential Type Automated LAB HEMATOLOGY METHOD 11/10/2024 12:53 AM EDT [facility] Neutrophils % 77 % LAB HEMATOLOGY METHOD 11/10/2024 12:53 AM EDT [facility] Lymphocytes % 13 % LAB HEMATOLOGY METHOD 11/10/2024 12:53 AM EDT [facility] Monocytes % 8 % LAB HEMATOLOGY METHOD 11/10/2024 12:53 AM EDT [facility] Eosinophils % 1 % LAB HEMATOLOGY METHOD 11/10/2024 12:53 AM EDT [facility] Basophils % 0 % LAB HEMATOLOGY METHOD 11/10/2024 12:53 AM EDT [facility] Immature Granulocytes % 1 % LAB HEMATOLOGY METHOD 11/10/2024 12:53 AM EDT [facility] Neutrophils Absolute 8.32(H) 1.60 - 6.10 10*3/uL LAB HEMATOLOGY METHOD 11/10/2024 12:53 AM EDT [facility] Lymphocytes Absolute 1.40 1.20 - 3.90 10*3/uL LAB HEMATOLOGY METHOD 11/10/2024 12:53 AM EDT [facility] Monocytes Absolute 0.89 0.30 - 0.90 10*3/uL LAB HEMATOLOGY METHOD 11/10/2024 12:53 AM EDT [facility] Eosinophils Absolute 0.09 0.00 - 0.50 10*3/uL LAB HEMATOLOGY METHOD 11/10/2024 12:53 AM EDT [facility] Basophils Absolute 0.04 0.00 - 0.10 10*3/uL LAB HEMATOLOGY METHOD 11/10/2024 12:53 AM EDT [facility] Immature Granulocytes Absolute 0.06 0.00 - 0.06 10*3/uL LAB HEMATOLOGY METHOD 11/10/2024 12:53 AM EDT [facility] Blood Venous blood specimen / Unknown Venipuncture / Unknown 11/10/2024 12:31 AM EDT 11/10/2024 12:37 AM EDT Narrative [facility] - 11/10/2024 12:53 AM EDT Therapeutic decision making should be based on absolute values, rather than percentages. us Nathaly Nowak MD LAB BLOOD ORDERABLES Final Resu lt [facility] [address] [place] [address] * (ABNORMAL) Comprehensive Metabolic Panel, Plasma (11/10/2024 12:31 AM EDT) Glucose, Plasma 185(H) 74 - 99 mg/dL 11/10/2024 1:05 AM EDT [facility] BUN, Plasma 9 8 - 23 mg/dL 11/10/2024 1:05 AM EDT [facility] Creatinine, Plasma 0.72 0.70 - 1.20 mg/dL 11/10/2024 1:05 AM EDT [facility] BUN/Creatinine Ratio 13 11/10/2024 1:05 AM EDT [facility] Sodium, Plasma 135(L) 136 - 145 mmol/L 11/10/2024 1:05 AM EDT [facility] Potassium, Plasma 4.0 3.6 - 4.9 mmol/L 11/10/2024 1:05 AM EDT [facility] Chloride, Plasma 106 97 - 107 mmol/L 11/10/2024 1:05 AM EDT [facility] CO2, Plasma 19(L) 22 - 29 mmol/L 11/10/2024 1:05 AM EDT [facility] Anion Gap 10 6 - 16 mmol/L 11/10/2024 1:05 AM EDT [facility] Total Calcium, Plasma 7.8(L) 8.9 - 10.2 mg/dL 11/10/2024 1:05 AM EDT [facility] Total Protein 5.6(L) 6.3 - 7.9 g/dL 11/10/2024 1:05 AM EDT [facility] Albumin, Plasma 3.1(L) 3.5 - 5.2 g/dL 11/10/2024 1:05 AM EDT [facility] AST, Plasma 33 10 - 50 U/L 11/10/2024 1:05 AM EDT [facility] ALT, Plasma 25 10 - 50 U/L 11/10/2024 1:05 AM EDT [facility] Alkaline Phosphatase, Plasma 108 40 - 115 U/L 11/10/2024 1:05 AM EDT [facility] Total Bilirubin, Plasma <0.2(L) 0.2 - 1.1 mg/dL 11/10/2024 1:05 AM EDT [facility] eGFRcr 101.4 mL/min/1.7 3m*2 11/10/2024 1:05 AM EDT [facility] Comment:Reported eGFRcr in m L/min/1.73m2 is based the CKD-EPI 2020 equation that does not use a race coefficient. Blood Venous blood specimen / Unknown Venipuncture / Unknown 11/10/2024 12:31 AM EDT 11/10/2024 12:37 AM EDT us Nathaly Nowak MD LAB BLOOD ORDERABLES Final Resu lt [facility] [address] [place] [address] * (ABNORMAL) POCT glucose meter (11/09/2024 8:04 PM EDT) [facility] POCT Glucose 114(H) 74 - 99 [...] Comment 11/09/2024 8:06 PM EDT [facility] Keyboard Operator ID Maximiliano Hansen II 11/09/2024 8:06 PM EDT [facility] LAB Device ID [id number] 11/09/2024 8:06 PM EDT [facility] Specimen Type POC Capillary 11/09/2024 8:06 PM EDT [facility] Blood Capillary blood specimen / Unknown 11/09/2024 8:04 PM EDT 11/09/2024 8:06 PM EDT Nathaly Nowak MD LAB POINT OF CARE TE ST DOCKED DEVICE UNSOLICITED RESULTS Final Result [facility] [address] [place] [address] * (ABNORMAL) POCT glucose meter (11/09/2024 4:36 PM EDT) [facility] POCT Glucose 166(H) 74 - [...] 11/09/2024 4:38 PM EDT [facility] Keyboard Operator ID Kristian Sosa 11/09/2024 4:38 PM EDT [facility] Device ID [id number] 11/09/2024 4:38 PM EDT [facility] Specimen Type POC Capillary 11/09/2024 4:38 PM EDT [facility] Blood Capillary blood specimen / Unknown 11/09/2024 4:36 PM EDT 11/09/2024 4:38 PM EDT Nathaly Nowak MD LAB POINT OF CARE TE ST DOCKED DEVICE UNSOLICITED RESULTS Final Result Performing Organization Address City/State/[facility] Co de Phone Number [facility] [address] [place] [address] * PICC SINGLE LUMEN ([employer] LINK) (11/09/2024 1:11 PM EDT) Narrative Estefani Barraza RN - 11/09/2024 1:11 PM EDT Estefani Barraza RN 11/09/2024 1:12 PM Insert PICC line Date/Time: 11/09/2024 1:11 PM Performed by: Estefani Barraza RN Authorized by: Nathaly Nowak MD [place] Protocol: Verbal consent obtained?: Yes Written consent [...] selection rationale: Left pacemaker Catheter Lot #: [id number] Catheter air boatswain: Buzz Referrals Catheter placed: Single lumen Catheter size: 4 [...] for testing. Comment 11/09/2024 11:51 AM EDT [facility] Keyboard Operator ID Kristian Sosa 11/09/2024 11:51 AM EDT [facility] Device ID [id number] 11/09/2024 11:51 AM EDT [facility] Specimen Type POC Capillary 11/09/2024 11:51 AM EDT [facility] Blood Capillary blood specimen / Unknown 11/09/2024 11:50 AM EDT 11/09/2024 11:51 AM EDT Nathaly Nowak MD LAB POINT OF CARE TE ST DOCKED DEVICE UNSOLICITED RESULTS Final Result [facility] [address] [place] [address] * (ABNORMAL) POCT glucose meter (11/09/2024 8:14 [...] Comment 11/09/2024 8:15 AM EDT [facility] Keyboard Operator ID Kristian Sosa 11/09/2024 8:15 AM EDT [facility] Device ID [id number] 11/09/2024 8:15 AM EDT [facility] Specimen Type POC Capillary 11/09/2024 8:15 AM EDT [facility] Blood Capillary blood specimen / Unknown 11/09/2024 8:14 AM EDT 11/09/2024 8:15 AM EDT us Nathaly Nowak MD LAB POINT OF CARE TE ST DOCKED DEVICE UNSOLICITED RESULTS Final Result [facility] [address] [place] [address] * (ABNORMAL) CBC and Differential (11/09/2024 4:15 AM EDT) [facility] WBC Count 10.27 3.70 - 10.30 10*3/uL LAB HEMATOLOGY METHOD 11/09/2024 4:26 AM EDT [facility] RBC Count 3.14(L) 4.60 - 6.10 10*6/uL LAB HEMATOLOGY METHOD 11/09/2024 4:26 AM EDT [facility] HGB 9.2(L) 13.7 - 17.5 g/dL LAB HEMATOLOGY METHOD 11/09/2024 4:26 AM EDT [facility] HCT 28.3(L) 40.0 - 51.0 % LAB HEMATOLOGY METHOD 11/09/2024 4:26 AM EDT [facility] Platelet Count 468(H) 155 - 369 10*3/uL LAB HEMATOLOGY METHOD 11/09/2024 4:26 AM EDT [facility] MCV 90 79 - 98 fL LAB HEMATOLOGY METHOD 11/09/2024 4:26 AM EDT [facility] MCH 29.3 26.0 - 32.0 pg LAB HEMATOLOGY METHOD 11/09/2024 4:26 AM EDT [facility] MCHC 32.5 30.7 - 35.5 g/dL LAB HEMATOLOGY METHOD 11/09/2024 4:26 AM EDT [facility] RDW 13.1 11.5 - 14.5 % LAB HEMATOLOGY METHOD 11/09/2024 4:26 AM EDT [facility] MPV 8.7(L) 8.8 - 12.5 fL LAB HEMATOLOGY METHOD 11/09/2024 4:26 AM EDT [facility] nRBC 0.0 <=0.0 per 100 WBCs LAB HEMATOLOGY METHOD 11/09/2024 4:26 AM EDT [facility] Differential Type Automated LAB HEMATOLOGY METHOD 11/09/2024 4:26 AM EDT [facility] Neutrophils % 77 % LAB HEMATOLOGY METHOD 11/09/2024 4:26 AM EDT [facility] Lymphocytes % 13 % LAB HEMATOLOGY METHOD 11/09/2024 4:26 AM EDT [facility] Monocytes % 8 % LAB HEMATOLOGY METHOD 11/09/2024 4:26 AM EDT [facility] Eosinophils % 1 % LAB HEMATOLOGY METHOD 11/09/2024 4:26 AM EDT [facility] Basophils % 0 % LAB HEMATOLOGY METHOD 11/09/2024 4:26 AM EDT [facility] Immature Granulocytes % 1 % LAB HEMATOLOGY METHOD 11/09/2024 4:26 AM EDT [facility] Neutrophils Absolute 7.97(H) 1.60 - 6.10 10*3/uL LAB HEMATOLOGY METHOD 11/09/2024 4:26 AM EDT [facility] Lymphocytes Absolute 1.32 1.20 - 3.90 10*3/uL LAB HEMATOLOGY METHOD 11/09/2024 4:26 AM EDT [facility] Monocytes Absolute 0.83 0.30 - 0.90 10*3/uL LAB HEMATOLOGY METHOD 11/09/2024 4:26 AM EDT [facility] Eosinophils Absolute 0.07 0.00 - 0.50 10*3/uL LAB HEMATOLOGY METHOD 11/09/2024 4:26 AM EDT [facility] Basophils Absolute 0.03 0.00 - 0.10 10*3/uL LAB HEMATOLOGY METHOD 11/09/2024 4:26 AM EDT [facility] Immature Granulocytes Absolute 0.05 0.00 - 0.06 10*3/uL LAB HEMATOLOGY METHOD 11/09/2024 4:26 AM EDT [facility] Blood Venous blood specimen / Unknown Venipuncture / Unknown 11/09/2024 4:15 AM EDT 11/09/2024 4:18 AM EDT Narrative [facility] - 11/09/2024 4:26 AM EDT Therapeutic decision making should be based on absolute values, rather than percentages. us Nathaly Nowak MD LAB BLOOD ORDERABLES Final Resu lt [facility] [address] [place] [address] * (ABNORMAL) Comprehensive Metabolic Panel, Plasma (11/09/2024 4:15 AM EDT) Glucose, Plasma 171(H) 74 - 99 mg/dL 11/09/2024 4:47 AM EDT [facility] BUN, Plasma 9 8 - 23 mg/dL 11/09/2024 4:47 AM EDT [facility] Creatinine, Plasma 0.67(L) 0.70 - 1.20 mg/dL 11/09/2024 4:47 AM EDT [facility] BUN/Creatinine Ratio 13 11/09/2024 4:47 AM EDT [facility] Sodium, Plasma 134(L) 136 - 145 mmol/L 11/09/2024 4:47 AM EDT [facility] Potassium, Plasma 4.1 3.6 - 4.9 mmol/L 11/09/2024 4:47 AM EDT [facility] Chloride, Plasma 104 97 - 107 mmol/L 11/09/2024 4:47 AM EDT [facility] CO2, Plasma 21(L) 22 - 29 mmol/L 11/09/2024 4:47 AM EDT [facility] Anion Gap 9 6 - 16 mmol/L 11/09/2024 4:47 AM EDT [facility] Total Calcium, Plasma 8.4(L) 8.9 - 10.2 mg/dL 11/09/2024 4:47 AM EDT [facility] Total Protein 5.8(L) 6.3 - 7.9 g/dL 11/09/2024 4:47 AM EDT [facility] Albumin, Plasma 3.2(L) 3.5 - 5.2 g/dL 11/09/2024 4:47 AM EDT [facility] AST, Plasma 18 10 - 50 U/L 11/09/2024 4:47 AM EDT [facility] ALT, Plasma 17 10 - 50 U/L 11/09/2024 4:47 AM EDT [facility] Alkaline Phosphatase, Plasma 110 40 - 115 U/L 11/09/2024 4:47 AM EDT [facility] Total Bilirubin, Plasma <0.2(L) 0.2 - 1.1 mg/dL 11/09/2024 4:47 AM EDT [facility] eGFRcr 103.6 mL/min/1.7 3m*2 11/09/2024 4:47 AM EDT [facility] Comment:Reported eGFRcr in m L/min/1.73m2 is based the CKD-EPI 2020 equation that does not use a race coefficient. Blood Venous blood specimen / Unknown Venipuncture / Unknown 11/09/2024 4:15 AM EDT 11/09/2024 4:18 AM EDT us Nathaly Nowak MD LAB BLOOD ORDERABLES Final Resu lt [facility] [address] [place] [address] * (ABNORMAL) POCT glucose meter (11/09/2024 3:30 AM EDT) POCT Glucose 160(H) 74 - 99 mg/dL 11/09/2024 3:31 AM EDT [email or web address] Comment:Accuracy of a glucos e result [...] for testing. Comment 11/09/2024 3:31 AM EDT [facility] Keyboard Operator ID Maximiliano Hansen II 11/09/2024 3:31 AM EDT [facility] LAB Device ID [id number] 11/09/2024 3:31 AM EDT [facility] Specimen Type POC Capillary 11/09/2024 3:31 AM EDT [facility] Blood Capillary blood specimen / Unknown 11/09/2024 3:30 AM EDT 11/09/2024 3:31 AM EDT Nathaly Nowak MD LAB POINT OF CARE TE ST DOCKED DEVICE UNSOLICITED RESULTS Final Result Performing Organization Address City/[facility] Co de Phone Number [facility] [address] [place] [address] * (ABNORMAL) POCT glucose meter (11/08/2024 7:21 PM EDT) [facility] POCT Glucose 292(H) 74 - [...] Comment 11/08/2024 7:22 PM EDT [facility] Keyboard Operator ID Maximiliano Hansen II 11/08/2024 7:22 PM EDT [facility] LAB Device ID [id number] 11/08/2024 7:22 PM EDT [facility] Specimen Type POC Capillary 11/08/2024 7:22 PM EDT [facility] Blood Capillary blood specimen / Unknown 11/08/2024 7:21 PM EDT 11/08/2024 7:22 PM EDT Nathaly Nowak MD LAB POINT OF CARE TE ST DOCKED DEVICE UNSOLICITED RESULTS Final Result Performing Organization Address City/[facility]/ZIP Co de Phone Number [facility] [address] [place] [address] * (ABNORMAL) POCT glucose meter (11/08/2024 5:12 PM EDT) [facility] POCT [...] Comment 11/08/2024 5:14 PM EDT [facility] Keyboard Operator ID Estefani Sheth 11/08/2024 5:14 PM EDT [facility] LAB Device ID [id number] 11/08/2024 5:14 PM EDT [facility] Specimen Type POC Capillary 11/08/2024 5:14 PM EDT [facility] Blood Capillary blood specimen / Unknown 11/08/2024 5:12 PM EDT 11/08/2024 5:14 PM EDT Nathaly Nowak MD LAB POINT OF CARE TE ST DOCKED DEVICE UNSOLICITED RESULTS Final Result Performing Organization Address City/State/[facility] Co de Phone Number [facility] [address] [place] [address] * (ABNORMAL) POCT glucose meter (11/08/2024 12:03 PM EDT) [facility] POCT Glucose 191(H) 74 - [...] Comment 11/08/2024 12:05 PM EDT [facility] Keyboard Operator ID Estefani Sheth 11/08/2024 12:05 PM EDT [facility] LAB Device ID [id number] 11/08/2024 12:05 PM EDT [facility] Specimen Type POC Capillary 11/08/2024 12:05 PM EDT [facility] Blood Capillary blood specimen / Unknown 11/08/2024 12:03 PM EDT 11/08/2024 12:05 PM EDT Nathaly Nowak MD LAB POINT OF CARE TE ST DOCKED DEVICE UNSOLICITED RESULTS Final Result Performing Organization Address [facility] Co de Phone Number [facility] [address] [place] [address] * Vancomycin, Peak, Plasma Please draw ~2 hours after 11/08 0600 dose of vancomycin finishes infusing.Consider obtaining level via peripheral stick. If peripheral stick is not feasible, please ensure that line is flushed well prior to drawing level.... (11/08/2024 9:24 AM EDT) Pathologist [facility] Vancomycin, Peak, Plasma 29.1 20.0 - 40.0 ug/mL 11/08/2024 10:31 AM EDT [facility] Blood Venous blood specimen / Unknown Venipuncture / Unknown 11/08/2024 9:24 AM EDT 11/08/2024 9:47 AM EDT Narrative [facility] - 11/08/2024 10:31 AM EDT Therapeutic Peak level: 20-40ug/mL Supra-therapeutic Peak level: >40 ug/mL Nathaly Nowak MD LAB BLOOD ORDERABLES Final Resu lt Performing Organization Address [facility] Phone Number [facility] [address] [place] [address] * (ABNORMAL) POCT glucose meter (11/08/2024 8:00 AM EDT) Pathologist [facility] POCT Glucose 150(H) 74 - 99 mg/dL 11/08/2024 8:01 AM EDT [email or web address] Comment:Accuracy of a glucos e result [...] testing. Comment 11/08/2024 8:01 AM EDT [facility] Keyboard Operator ID Estefani Sheth 11/08/2024 8:01 AM EDT [facility]ALTH[facility] LAB Device ID [id number] 11/08/2024 8:01 AM EDT [facility] Specimen Type POC Capillary 11/08/2024 8:01 AM EDT [facility] Blood Capillary blood specimen / Unknown 11/08/2024 8:00 AM EDT 11/08/2024 8:01 AM EDT us Nathaly Nowak MD LAB POINT OF CARE TE ST DOCKED DEVICE UNSOLICITED RESULTS Final Result [facility] [address] [place] [id number] * (ABNORMAL) CBC and Differential (11/08/2024 4:39 AM EDT) WBC Count 9.18 3.70 - 10.30 10*3/uL LAB HEMATOLOGY METHOD 11/08/2024 4:58 AM EDT [facility] RBC Count 3.11(L) 4.60 - 6.10 10*6/uL LAB HEMATOLOGY METHOD 11/08/2024 4:58 AM EDT [facility] HGB 9.2(L) 13.7 - 17.5 g/dL LAB HEMATOLOGY METHOD 11/08/2024 4:58 AM EDT [facility] HCT 28.9(L) 40.0 - 51.0 % LAB HEMATOLOGY METHOD 11/08/2024 4:58 AM EDT [facility] Platelet Count 485(H) 155 - 369 10*3/uL LAB HEMATOLOGY METHOD 11/08/2024 4:58 AM EDT [facility] MCV 93 79 - 98 fL LAB HEMATOLOGY METHOD 11/08/2024 4:58 AM EDT [facility] MCH 29.6 26.0 - 32.0 pg LAB HEMATOLOGY METHOD 11/08/2024 4:58 AM EDT [facility] MCHC 31.8 30.7 - 35.5 g/dL LAB HEMATOLOGY METHOD 11/08/2024 4:58 AM EDT [facility] RDW 13.0 11.5 - 14.5 % LAB HEMATOLOGY METHOD 11/08/2024 4:58 AM EDT [facility] MPV 8.8 8.8 - 12.5 fL LAB HEMATOLOGY METHOD 11/08/2024 4:58 AM EDT [facility] nRBC 0.0 <=0.0 per 100 WBCs LAB HEMATOLOGY METHOD 11/08/2024 4:58 AM EDT [facility] Differential Type Automated LAB HEMATOLOGY METHOD 11/08/2024 4:58 AM EDT [facility] Neutrophils % 69 % LAB HEMATOLOGY METHOD 11/08/2024 4:58 AM EDT [facility] Lymphocytes % 17 % LAB HEMATOLOGY METHOD 11/08/2024 4:58 AM EDT [facility] Monocytes % 10 % LAB HEMATOLOGY METHOD 11/08/2024 4:58 AM EDT [facility] Eosinophils % 2 % LAB HEMATOLOGY METHOD 11/08/2024 4:58 AM EDT [facility] Basophils % 1 % LAB HEMATOLOGY METHOD 11/08/2024 4:58 AM EDT [facility] Immature Granulocytes % 1 % LAB HEMATOLOGY METHOD 11/08/2024 4:58 AM EDT [facility] Neutrophils Absolute 6.40(H) 1.60 - 6.10 10*3/uL LAB HEMATOLOGY METHOD 11/08/2024 4:58 AM EDT [facility] Lymphocytes Absolute 1.59 1.20 - 3.90 10*3/uL LAB HEMATOLOGY METHOD 11/08/2024 4:58 AM EDT [facility] Monocytes Absolute 0.87 0.30 - 0.90 10*3/uL LAB HEMATOLOGY METHOD 11/08/2024 4:58 AM EDT [facility] Eosinophils Absolute 0.22 0.00 - 0.50 10*3/uL LAB HEMATOLOGY METHOD 11/08/2024 4:58 AM EDT [facility] Basophils Absolute 0.05 0.00 - 0.10 10*3/uL LAB HEMATOLOGY METHOD 11/08/2024 4:58 AM EDT [facility] Immature Granulocytes Absolute 0.05 0.00 - 0.06 10*3/uL LAB HEMATOLOGY METHOD 11/08/2024 4:58 AM EDT [facility] Blood Venous blood specimen / Unknown Venipuncture / Unknown 11/08/2024 4:39 AM EDT 11/08/2024 4:49 AM EDT Narrative [facility] - 11/08/2024 4:58 AM EDT Therapeutic decision making should be based on absolute values, rather than percentages. us Nathaly Nowak MD LAB BLOOD ORDERABLES Final Resu lt [facility] [address] [place] [address] * (ABNORMAL) Comprehensive Metabolic Panel, Plasma (11/08/2024 4:39 AM EDT) Glucose, Plasma 255(H) 74 - 99 mg/dL 11/08/2024 5:20 AM EDT [facility] BUN, Plasma 10 8 - 23 mg/dL 11/08/2024 5:20 AM EDT [facility] Creatinine, Plasma 0.75 0.70 - 1.20 mg/dL 11/08/2024 5:20 AM EDT [facility] BUN/Creatinine Ratio 13 11/08/2024 5:20 AM EDT [facility] Sodium, Plasma 133(L) 136 - 145 mmol/L 11/08/2024 5:20 AM EDT [facility] Potassium, Plasma 5.2(H) 3.6 - 4.9 mmol/L 11/08/2024 5:20 AM EDT [facility] Chloride, Plasma 105 97 - 107 mmol/L 11/08/2024 5:20 AM EDT [facility] CO2, Plasma 20(L) 22 - 29 mmol/L 11/08/2024 5:20 AM EDT [facility] Anion Gap 8 6 - 16 mmol/L 11/08/2024 5:20 AM EDT [facility] Total Calcium, Plasma 7.7(L) 8.9 - 10.2 mg/dL 11/08/2024 5:20 AM EDT [facility] Total Protein 5.6(L) 6.3 - 7.9 g/dL 11/08/2024 5:20 AM EDT [facility] Albumin, Plasma 2.8(L) 3.5 - 5.2 g/dL 11/08/2024 5:20 AM EDT [facility] AST, Plasma 20 10 - 50 U/L 11/08/2024 5:20 AM EDT [facility] Comment:Hemolyzed, result ma y be falsely increased. ALT, Plasma 14 10 - 50 U/L 11/08/2024 5:20 AM EDT [facility] Alkaline Phosphatase, Plasma 119(H) 40 - 115 U/L 11/08/2024 5:20 AM EDT [facility] Total Bilirubin, Plasma <0.2(L) 0.2 - 1.1 mg/dL 11/08/2024 5:20 AM EDT [facility] eGFRcr 100.1 mL/min/1.7 3m*2 11/08/2024 5:20 AM EDT [facility] Comment:Reported eGFRcr in m L/min/1.73m2 is based the CKD-EPI 2020 equation that does not use a race coefficient. Blood Venous blood specimen / Unknown Venipuncture / Unknown 11/08/2024 4:39 AM EDT 11/08/2024 4:43 AM EDT us Nathaly Nowak MD LAB BLOOD ORDERABLES Final Resu lt [facility] [address] [place] [address] * Vancomycin, Trough, Plasma Please draw ~30 minutes prior to dose due at 0600 on 11/08. Please do NOThold dose awaiting level to return. Consider obtaining level via peripheral stick. If peripheral stick is not feasible, please ensure that line is... (11/08/2024 4:39 AM EDT) Vancomycin, Trough, Plasma 18.7 10.0 - 20.0 ug/mL 11/08/2024 5:22 AM EDT [facility] Blood Venous blood specimen / Unknown Venipuncture / Unknown 11/08/2024 4:39 AM EDT 11/08/2024 4:43 AM EDT Narrative [facility] - 11/08/2024 5:22 AM EDT Therapeutic Trough level: 10-20ug/mL Supra-therapeutic Trough level: >20 ug/mL us Nathaly Nowak MD LAB BLOOD ORDERABLES Final Resu lt Performing Organization Address City/[facility]/ZIP Co de Phone Number [facility] [address] [place] [address] * (ABNORMAL) POCT glucose meter (11/07/2024 7:26 [...] for testing. Comment 11/07/2024 7:28 PM EDT [facility] Keyboard Operator ID Maximiliano Hansen II 11/07/2024 7:28 PM EDT [facility] Device ID [id number] 11/07/2024 7:28 PM EDT [facility] [facility] Specimen Type POC Capillary 11/07/2024 7:28 PM EDT [facility] Blood Capillary blood specimen / Unknown 11/07/2024 7:26 PM EDT 11/07/2024 7:28 PM EDT Nathaly Nowak MD LAB POINT OF CARE TE ST DOCKED DEVICE UNSOLICITED RESULTS Final Result Performing Organization Address City/[facility] Co de Phone Number HEALTHCARE LAB [address] [place] [address] * (ABNORMAL) POCT glucose meter (11/07/2024 5:51 [...] Comment 11/07/2024 5:52 PM EDT HEALTHCARE LAB Keyboard Operator ID Brigitte Castellon 11/07/2024 5:52 PM EDT [facility] Device ID [id number] 11/07/2024 5:52 PM EDT [facility] Specimen Type POC Capillary 11/07/2024 5:52 PM EDT HEALTHCARE LAB Blood Capillary blood specimen / Unknown 11/07/2024 5:51 PM EDT 11/07/2024 5:52 PM EDT us Nathaly Nowak MD LAB POINT OF CARE TE ST DOCKED DEVICE UNSOLICITED RESULTS Final Result Performing Organization Address City/[facility] Co de Phone Number HEALTHCARE LAB [address] [place] [address] * (ABNORMAL) POCT glucose meter (11/07/2024 4:47 [...] Comment 11/07/2024 4:48 PM EDT HEALTHCARE LAB Keyboard Operator ID Estefani Sheth 11/07/2024 4:48 PM EDT HEALTHCARE LAB Device ID [id number] 11/07/2024 4:48 PM EDT HEALTHCARE LAB Specimen Type POC Capillary 11/07/2024 4:48 PM EDT HEALTHCARE LAB Blood Capillary blood specimen / Unknown 11/07/2024 4:47 PM EDT 11/07/2024 4:48 PM EDT Nathaly Nowak MD LAB POINT OF CARE TE ST DOCKED DEVICE UNSOLICITED RESULTS Final Result Performing Organization Address City/[facility]/ZIP Co de Phone Number HEALTHCARE LAB [address] [place] [address] * (ABNORMAL) POCT glucose meter (11/07/2024 12:22 [...] Comment 11/07/2024 12:24 PM EDT HEALTHCARE LAB Keyboard Operator ID Estefani Sheth 11/07/2024 12:24 PM EDT HEALTHCARE LAB Device ID [id number] 11/07/2024 12:24 PM EDT HEALTHCARE LAB Specimen Type POC Capillary 11/07/2024 12:24 PM EDT [facility] Blood Capillary blood specimen / Unknown 11/07/2024 12:22 PM EDT 11/07/2024 12:24 PM EDT us Nathaly Nowak MD LAB POINT OF CARE TE ST DOCKED DEVICE UNSOLICITED RESULTS Final Result Performing Organization Address City/State/[facility] Co de Phone Number HEALTHCARE LAB [address] [place] [id number] * (ABNORMAL) CBC and Differential (11/07/2024 11:37 AM EDT) [facility] WBC Count 9.96 3.70 - 10.30 10*3/uL LAB HEMATOLOGY METHOD 11/07/2024 12:33 PM EDT [facility] RBC Count 2.81(L) 4.60 - 6.10 10*6/uL LAB HEMATOLOGY METHOD 11/07/2024 12:33 PM EDT [facility] HGB 8.5(L) 13.7 - 17.5 g/dL LAB HEMATOLOGY METHOD 11/07/2024 12:33 PM EDT [facility] HCT 26.0(L) 40.0 - 51.0 % LAB HEMATOLOGY METHOD 11/07/2024 12:33 PM EDT [facility] Platelet Count 524(H) 155 - 369 10*3/uL LAB HEMATOLOGY METHOD 11/07/2024 12:33 PM EDT [facility] MCV 93 79 - 98 fL LAB HEMATOLOGY METHOD 11/07/2024 12:33 PM EDT [facility] MCH 30.2 26.0 - 32.0 pg LAB HEMATOLOGY METHOD 11/07/2024 12:33 PM EDT [facility] MCHC 32.7 30.7 - 35.5 g/dL LAB HEMATOLOGY METHOD 11/07/2024 12:33 PM EDT [facility] RDW 13.1 11.5 - 14.5 % LAB HEMATOLOGY METHOD 11/07/2024 12:33 PM EDT [facility] MPV 9.0 8.8 - 12.5 fL LAB HEMATOLOGY METHOD 11/07/2024 12:33 PM EDT [facility] nRBC 0.0 <=0.0 per 100 WBCs LAB HEMATOLOGY METHOD 11/07/2024 12:33 PM EDT [facility] Differential Type Automated LAB HEMATOLOGY METHOD 11/07/2024 12:33 PM EDT [facility] Neutrophils % 72 % LAB HEMATOLOGY METHOD 11/07/2024 12:33 PM EDT [facility] Lymphocytes % 17 % LAB HEMATOLOGY METHOD 11/07/2024 12:33 PM EDT [facility] Monocytes % 9 % LAB HEMATOLOGY METHOD 11/07/2024 12:33 PM EDT [facility] Eosinophils % 1 % LAB HEMATOLOGY METHOD 11/07/2024 12:33 PM EDT [facility] Basophils % 1 % LAB HEMATOLOGY METHOD 11/07/2024 12:33 PM EDT [facility] Immature Granulocytes % 0 % LAB HEMATOLOGY METHOD 11/07/2024 12:33 PM EDT [facility] Neutrophils Absolute 7.19(H) 1.60 - 6.10 10*3/uL LAB HEMATOLOGY METHOD 11/07/2024 12:33 PM EDT [facility] Lymphocytes Absolute 1.66 1.20 - 3.90 10*3/uL LAB HEMATOLOGY METHOD 11/07/2024 12:33 PM EDT [facility] Monocytes Absolute 0.88 0.30 - 0.90 10*3/uL LAB HEMATOLOGY METHOD 11/07/2024 12:33 PM EDT [facility] Eosinophils Absolute 0.14 0.00 - 0.50 10*3/uL LAB HEMATOLOGY METHOD 11/07/2024 12:33 PM EDT [facility] Basophils Absolute 0.05 0.00 - 0.10 10*3/uL LAB HEMATOLOGY METHOD 11/07/2024 12:33 PM EDT [facility] Immature Granulocytes Absolute 0.04 0.00 - 0.06 10*3/uL LAB HEMATOLOGY METHOD 11/07/2024 12:33 PM EDT [facility] Blood Venous blood specimen / Unknown Venipuncture / Unknown 11/07/2024 11:37 AM EDT 11/07/2024 12:24 PM EDT Narrative [facility] - 11/07/2024 12:33 PM EDT Therapeutic decision making should be based on absolute values, rather than percentages. us Nathaly Nowak MD LAB BLOOD ORDERABLES Final Resu lt [facility] [address] [place] [address] * (ABNORMAL) Comprehensive Metabolic Panel, Plasma (11/07/2024 11:37 AM EDT) Glucose, Plasma 173(H) 74 - 99 mg/dL 11/07/2024 1:31 PM EDT [facility] BUN, Plasma 13 8 - 23 mg/dL 11/07/2024 1:31 PM EDT [facility] Creatinine, Plasma 0.92 0.70 - 1.20 mg/dL 11/07/2024 1:31 PM EDT [facility] BUN/Creatinine Ratio 14 11/07/2024 1:31 PM EDT [facility] Sodium, Plasma 136 136 - 145 mmol/L 11/07/2024 1:31 PM EDT [facility] Potassium, Plasma 4.0 3.6 - 4.9 mmol/L 11/07/2024 1:31 PM EDT [facility] Chloride, Plasma 104 97 - 107 mmol/L 11/07/2024 1:31 PM EDT [facility] CO2, Plasma 23 22 - 29 mmol/L 11/07/2024 1:31 PM EDT [facility] Anion Gap 9 6 - 16 mmol/L 11/07/2024 1:31 PM EDT [facility] Total Calcium, Plasma 7.8(L) 8.9 - 10.2 mg/dL 11/07/2024 1:31 PM EDT [facility] Total Protein 5.7(L) 6.3 - 7.9 g/dL 11/07/2024 1:31 PM EDT [facility] Albumin, Plasma 3.0(L) 3.5 - 5.2 g/dL 11/07/2024 1:31 PM EDT [facility] AST, Plasma 15 10 - 50 U/L 11/07/2024 1:31 PM EDT [facility] ALT, Plasma 16 10 - 50 U/L 11/07/2024 1:31 PM EDT [facility] Alkaline Phosphatase, Plasma 119(H) 40 - 115 U/L 11/07/2024 1:31 PM EDT [facility] Total Bilirubin, Plasma <0.2(L) 0.2 - 1.1 mg/dL 11/07/2024 1:31 PM EDT [facility] eGFRcr 92.3 mL/min/1.7 3m*2 11/07/2024 1:31 PM EDT [facility] Comment:Reported eGFRcr in m L/min/1.73m2 is based the CKD-EPI 2020 equation that does not use a race coefficient. Blood Venous blood specimen / Unknown Venipuncture / Unknown 11/07/2024 11:37 AM EDT 11/07/2024 12:23 PM EDT us Nathaly Nowak MD LAB BLOOD ORDERABLES Final Resu lt [facility] [address] [place] [address] * Type and Screen (11/07/2024 11:37 AM [...] ORDERABLES F inal Result Performing Organization Address City/[facility] Co de Phone Number BLOOD BANK [address] * (ABNORMAL) POCT glucose meter (11/07/2024 [...] Comment 11/07/2024 10:36 AM EDT HEALTHCARE LAB Keyboard Operator ID Joy Iraheta 11/07/2024 10:36 AM EDT HEALTHCARE LAB Device ID [id number] 11/07/2024 10:36 AM EDT [facility] Specimen Type POC Capillary 11/07/2024 10:36 AM EDT [facility] Blood Capillary blood specimen / Unknown 11/07/2024 10:34 AM EDT 11/07/2024 10:36 AM EDT Nathaly Nowak MD LAB POINT OF CARE TE ST DOCKED DEVICE UNSOLICITED RESULTS Final Result Performing Organization Address City/[facility]/ZIP Co de Phone Number [facility] [address] [place] [address] * (ABNORMAL) POCT glucose meter (11/07/2024 9:34 [...] Comment 11/07/2024 9:36 AM EDT HEALTHCARE LAB Keyboard Operator ID Brigitte Castellon 11/07/2024 9:36 AM EDT HEALTHCARE LAB Device ID [id number] 11/07/2024 9:36 AM EDT [facility] Specimen Type POC Capillary 11/07/2024 9:36 AM EDT HEALTHCARE LAB Blood Capillary blood specimen / Unknown 11/07/2024 9:34 AM EDT 11/07/2024 9:36 AM EDT Nathaly Nowak MD LAB POINT OF CARE TE ST DOCKED DEVICE UNSOLICITED RESULTS Final Result Performing Organization Address City/State/[facility] Co de Phone Number [facility] [address] [place] [address] * (ABNORMAL) POCT glucose meter (11/07/2024 8:20 [...] Comment 11/07/2024 8:22 AM EDT HEALTHCARE LAB Keyboard Operator ID Estefani Sheth 11/07/2024 8:22 AM EDT HEALTHCARE LAB Device ID [id number] 11/07/2024 8:22 AM EDT HEALTHCARE LAB Specimen Type POC Capillary 11/07/2024 8:22 AM EDT HEALTHCARE LAB Blood Capillary blood specimen / Unknown 11/07/2024 8:20 AM EDT 11/07/2024 8:22 AM EDT Nathaly Nowak MD LAB POINT OF CARE TE ST DOCKED DEVICE UNSOLICITED RESULTS Final Result Performing Organization Address City/[facility] Co de Phone Number HEALTHCARE LAB [address] [place] [address] * (ABNORMAL) POCT glucose meter (11/07/2024 7:21 [...] for testing. Comment 11/07/2024 7:22 AM EDT [facility] Keyboard Operator ID Brigitte Castellon 11/07/2024 7:22 AM EDT [employer] [facility] Device ID [id number] 11/07/2024 7:22 AM EDT [facility] Specimen Type POC Capillary 11/07/2024 7:22 AM EDT [facility] Blood Capillary blood specimen / Unknown 11/07/2024 7:21 AM EDT 11/07/2024 7:22 AM EDT Nathaly Nowak MD LAB POINT OF CARE TE ST DOCKED DEVICE UNSOLICITED RESULTS Final Result Performing Organization Address City/[facility] Co de Phone Number [facility] [address] [place] [address] * (ABNORMAL) POCT glucose meter (11/07/2024 6:25 [...] Comment 11/07/2024 6:27 AM EDT HEALTHCARE LAB Keyboard Operator ID Nelda Gerber 11/08/19 6:27 AM EDT HEALTHCARE LAB Device ID [id number] 11/07/2024 6:27 AM EDT HEALTHCARE LAB Specimen Type POC Capillary 11/07/2024 6:27 AM EDT HEALTHCARE LAB Blood Capillary blood specimen / Unknown 11/07/2024 6:25 AM EDT 11/07/2024 6:27 AM EDT Nathaly Nowak MD LAB POINT OF CARE TE ST DOCKED DEVICE UNSOLICITED RESULTS Final Result Performing Organization Address City/[facility]/ZIP Co de Phone Number HEALTHCARE LAB [address] [place] [address] * (ABNORMAL) POCT glucose meter (11/07/2024 5:03 [...] Comment 11/07/2024 5:08 AM EDT HEALTHCARE LAB Keyboard Operator ID Nelda Gerber 11/08/19 5:08 AM EDT HEALTHCARE LAB Device ID [id number] 11/07/2024 5:08 AM EDT HEALTHCARE LAB Specimen Type POC Capillary 11/07/2024 5:08 AM EDT HEALTHCARE LAB Blood Capillary blood specimen / Unknown 11/07/2024 5:03 AM EDT 11/07/2024 5:08 AM EDT Nathaly Nowak MD LAB POINT OF CARE TE ST DOCKED DEVICE UNSOLICITED RESULTS Final Result Performing Organization Address City/[facility]/ZIP Co de Phone Number HEALTHCARE LAB [address] [place] [address] * (ABNORMAL) POCT glucose meter (11/07/2024 4:16 [...] Comment 11/07/2024 4:18 AM EDT HEALTHCARE LAB Keyboard Operator ID Nelda Gerber 11/08/19 4:18 AM EDT [email or web address] LAB Device ID [id number] 11/07/2024 4:18 AM EDT [facility] Specimen Type POC Capillary 11/07/2024 4:18 AM EDT [employer] [facility] Blood Capillary blood specimen / Unknown 11/07/2024 4:16 AM EDT 11/07/2024 4:18 AM EDT us Nathaly Nowak MD LAB POINT OF CARE TE ST DOCKED DEVICE UNSOLICITED RESULTS Final Result Performing Organization Address City/State/[facility] Co de Phone Number HEALTHCARE LAB [address] [place] [address] * (ABNORMAL) POCT glucose meter (11/07/2024 3:21 [...] 11/07/2024 3:23 AM EDT [facility] Keyboard Operator ID Nelda Gerber 11/08/19 3:23 AM EDT [facility] Device ID [id number] 11/07/2024 3:23 AM EDT [facility] Specimen Type POC Capillary 11/07/2024 3:23 AM EDT [facility] Blood Capillary blood specimen / Unknown 11/07/2024 3:21 AM EDT 11/07/2024 3:23 AM EDT Nathaly Nowak MD LAB POINT OF CARE TE ST DOCKED DEVICE UNSOLICITED RESULTS Final Result HEALTHCARE LAB [address] [place] [address] * (ABNORMAL) POCT glucose meter (11/07/2024 2:10 [...] for testing. Comment 11/07/2024 2:12 AM EDT [facility] Keyboard Operator ID Nelda Gerber 11/08/19 25 2:12 AM EDT [facility] Device ID [id number] 11/07/2024 2:12 AM EDT [facility] Specimen Type POC Capillary 11/07/2024 2:12 AM EDT [facility] Blood Capillary blood specimen / Unknown 11/07/2024 2:10 AM EDT 11/07/2024 2:12 AM EDT Nathaly Nowak MD LAB POINT OF CARE TE ST DOCKED DEVICE UNSOLICITED RESULTS Final Result HEALTHCARE LAB [address] [place] [address] * (ABNORMAL) POCT glucose meter (11/07/2024 1:08 [...] Comment 11/07/2024 1:10 AM EDT HEALTHCARE LAB Keyboard Operator ID Nelda Gerber 11/08/19 1:10 AM EDT HEALTHCARE LAB Device ID [id number] 11/07/2024 1:10 AM EDT HEALTHCARE LAB Specimen Type POC Capillary 11/07/2024 1:10 AM EDT HEALTHCARE LAB Blood Capillary blood specimen / Unknown 11/07/2024 1:08 AM EDT 11/07/2024 1:10 AM EDT us Nathaly Nowak MD LAB POINT OF CARE TE ST DOCKED DEVICE UNSOLICITED RESULTS Final Result Performing Organization Address City/State/[facility] Co de Phone Number HEALTHCARE LAB [address] [place] [address] * (ABNORMAL) POCT glucose meter (11/07/2024 12:10 [...] Comment 11/07/2024 12:13 AM EDT HEALTHCARE LAB Keyboard Operator ID Nelda Gerber 11/08/19 12:13 AM EDT HEALTHCARE LAB Device ID [id number] 11/07/2024 12:13 AM EDT HEALTHCARE LAB Specimen Type POC Capillary 11/07/2024 12:13 AM EDT HEALTHCARE LAB Blood Capillary blood specimen / Unknown 11/07/2024 12:10 AM EDT 11/07/2024 12:13 AM EDT us Nathaly Nowak MD LAB POINT OF CARE TE ST DOCKED DEVICE UNSOLICITED RESULTS Final Result HEALTHCARE LAB [address] [place] [address] * (ABNORMAL) POCT glucose meter (11/06/2024 11:14 PM EDT) Pathologist [facility] POCT Glucose 71(L) 74 - 99 mg/dL 11/06/2024 11:16 PM EDT [facility] Comment:Accuracy of a glucos e [...] for testing. Comment 11/06/2024 11:16 PM EDT [facility] Keyboard Operator ID Nelda Gerber 11/07/19 25 11:16 PM EDT [facility] Device ID [id number] 11/06/2024 11:16 PM EDT [facility] Specimen Type POC Capillary 11/06/2024 11:16 PM EDT [facility] Blood Capillary blood specimen / Unknown 11/06/2024 11:14 PM EDT 11/06/2024 11:16 PM EDT Nathaly Nowak MD LAB POINT OF CARE TE ST DOCKED DEVICE UNSOLICITED RESULTS Final Result HEALTHCARE LAB [address] [place] [address] * (ABNORMAL) POCT glucose meter (11/06/2024 10:07 PM EDT) [facility] POCT Glucose 140(H) 74 - [...] 11/06/2024 10:09 PM EDT [facility] Keyboard Operator ID Nelda Gerber 11/07/19 10:09 PM EDT HEALTHCARE LAB Device ID [id number] 11/06/2024 10:09 PM EDT HEALTHCARE LAB Specimen Type POC Capillary 11/06/2024 10:09 PM EDT HEALTHCARE LAB Blood Capillary blood specimen / Unknown 11/06/2024 10:07 PM EDT 11/06/2024 10:09 PM EDT Nathaly Nowak MD LAB POINT OF CARE TE ST DOCKED DEVICE UNSOLICITED RESULTS Final Result Performing Organization Address City/[facility]/ZIP Co de Phone Number [facility] [address] [place] [address] * (ABNORMAL) POCT glucose meter (11/06/2024 8:22 PM EDT) [facility] POCT Glucose 256(H) 74 - [...] Comment 11/06/2024 8:25 PM EDT HEALTHCARE LAB Keyboard Operator ID Nelda Gerber 11/07/19 8:25 PM EDT HEALTHCARE LAB Device ID [id number] 11/06/2024 8:25 PM EDT HEALTHCARE LAB Specimen Type POC Capillary 11/06/2024 8:25 PM EDT HEALTHCARE LAB Blood Capillary blood specimen / Unknown 11/06/2024 8:22 PM EDT 11/06/2024 8:25 PM EDT Nathaly Nowak MD LAB POINT OF CARE TE ST DOCKED DEVICE UNSOLICITED RESULTS Final Result Performing Organization Address City/[facility]/ZIP Co de Phone Number [facility] [address] [place] [address] * (ABNORMAL) POCT glucose meter (11/06/2024 7:31 PM EDT) [facility] POCT Glucose 359(H) 74 - [...] Comment 11/06/2024 7:32 PM EDT HEALTHCARE LAB Keyboard Operator ID Nelda Gerber 11/07/19 7:32 PM EDT HEALTHCARE LAB Device ID [id number] 11/06/2024 7:32 PM EDT HEALTHCARE LAB Specimen Type POC Capillary 11/06/2024 7:32 PM EDT [facility] Blood Capillary blood specimen / Unknown 11/06/2024 7:31 PM EDT 11/06/2024 7:32 PM EDT Nathaly Nowak MD LAB POINT OF CARE TE ST DOCKED DEVICE UNSOLICITED RESULTS Final Result Performing Organization Address City/State/[facility] Co de Phone Number HEALTHCARE LAB [address] [place] [address] * (ABNORMAL) POCT glucose meter (11/06/2024 6:15 PM EDT) [facility] POCT Glucose 368(H) 74 - [...] Comment 11/06/2024 6:17 PM EDT HEALTHCARE LAB Keyboard Operator ID Estefani Sheth 11/06/2024 6:17 PM EDT HEALTHCARE LAB Device ID [id number] 11/06/2024 6:17 PM EDT HEALTHCARE LAB Specimen Type POC Capillary 11/06/2024 6:17 PM EDT HEALTHCARE LAB Blood Capillary blood specimen / Unknown 11/06/2024 6:15 PM EDT 11/06/2024 6:17 PM EDT Nathaly Nowak MD LAB POINT OF CARE TE ST DOCKED DEVICE UNSOLICITED RESULTS Final Result Performing Organization Address City/[facility] Co de Phone Number HEALTHCARE LAB [address] [place] [address] * (ABNORMAL) POCT glucose meter (11/06/2024 4:57 [...] for testing. Comment 11/06/2024 4:58 PM EDT [facility] Keyboard Operator ID Estefani Sheth 11/06/2024 4:58 PM EDT HEALTHCARE LAB Device ID [id number] 11/06/2024 4:58 PM EDT [facility] Specimen Type POC Capillary 11/06/2024 4:58 PM EDT [facility] Blood Capillary blood specimen / Unknown 11/06/2024 4:57 PM EDT 11/06/2024 4:58 PM EDT Nathaly Nowak MD LAB POINT OF CARE TE ST DOCKED DEVICE UNSOLICITED RESULTS Final Result HEALTHCARE LAB [address] [place] [address] * (ABNORMAL) POCT glucose meter (11/06/2024 2:08 [...] Comment 11/06/2024 2:09 PM EDT HEALTHCARE LAB Keyboard Operator ID Brigitte Castellon 11/06/2024 2:09 PM EDT HEALTHCARE LAB Device ID [id number] 11/06/2024 2:09 PM EDT HEALTHCARE LAB Specimen Type POC Capillary 11/06/2024 2:09 PM EDT HEALTHCARE LAB Blood Capillary blood specimen / Unknown 11/06/2024 2:08 PM EDT 11/06/2024 2:09 PM EDT Nathaly Nowak MD LAB POINT OF CARE TE ST DOCKED DEVICE UNSOLICITED RESULTS Final Result Performing Organization Address City/State/[facility] Co de Phone Number HEALTHCARE LAB [address] [place] [address] * (ABNORMAL) POCT glucose meter (11/06/2024 12:27 PM EDT) [facility] POCT Glucose 228(H) 74 - [...] Comment 11/06/2024 12:28 PM EDT HEALTHCARE LAB Keyboard Operator ID Jacinta Galloway 11/06/2024 12:28 PM EDT HEALTHCARE LAB Device ID [id number] 11/06/2024 12:28 PM EDT HEALTHCARE LAB Specimen Type POC Capillary 11/06/2024 12:28 PM EDT HEALTHCARE LAB Blood Capillary blood specimen / Unknown 11/06/2024 12:27 PM EDT 11/06/2024 12:28 PM EDT Nathaly Nowak MD LAB POINT OF CARE TE ST DOCKED DEVICE UNSOLICITED RESULTS Final Result [facility] [address] [place] [address] * (ABNORMAL) Fungal Culture, Tissue and ISIDRO (11/06/2024 11:34 AM EDT) Culture Reading 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 These results have been appended to the previously preliminary verified report. Edited result: Previously reported as Yeast on 11/11/2024 at 1317 EDT. ISIDRO No fungal elements seen 12/05/2024 8:36 AM EDT [facility] Tissue Topography unknown [...] MICROBIOLOGY - GENERAL ORDE [facility] Final Result [facility] [address] [place] [address] * (ABNORMAL) Tissue Culture and Gram Stain (11/06/2024 11:34 AM EDT) Culture Moderate Growth 7:35 AM EDT [facility] Culture 2+ Enterobacter cloacae complex(A) ANGÉLICA 11/15/2024 7:35 AM EDT [facility] Comment: This isolate has been identified using the FDA Approved [employer] System The organism value for this result has been updated. These results have been appended to the previously preliminary verified report. Edited result: Previously reported as Gram Negative Jesus on 11/07/2024 at 1434 EDT. Culture 2+ Streptococcus mitis/oralis group(A) ANGÉLICA 11/15/2024 7:35 AM EDT [facility] Comment: This isolate has been identified using the FDA Approved [employer] System The organism value for this result has been updated. These results have been appended to the previously preliminary verified report. Culture 2+ Pasteurella stomatis(A) ANGÉLICA 11/15/2024 7:35 AM EDT [facility] Comment: This result was determined by [employer] tof mass spectrometry using the [employer] database and is for research use only. The organism value for this result has been updated. These results have been appended to the previously preliminary verified report. Gram Stain Result Few Gram negative rods(A) 11/15/2024 7:35 AM EDT [facility] Gram Stain Result Moderate Polymorphonuclear leukocytes(A) 11/15/2024 7:35 AM EDT [facility] Gram Stain Result Few Gram positive cocci in pairs(A) 11/15/2024 7:35 AM EDT [facility] Tissue Topography unknown / Unknown 11/06/2024 11:34 AM EDT 11/06/2024 12:18 PM EDT Comment:Pre-op diagnosis: Surgical wound infection [T81.49XA] Narrative [facility] - 11/15/2024 7:35 [...] GENERAL ATIYA FRITZ Edited Result - Final [facility] [address] [place] [address] * (ABNORMAL) Anaerobic Culture (11/06/2024 11:34 AM EDT) Culture No anaerobes isolated 11/14/2024 1:25 PM EDT [facility] Culture Staphylococcus pseudintermedius( A) 11/14/2024 1:25 PM EDT [facility] Comment: This result was determined by [employer] tof mass spectrometry using the [employer] database and is for research use only. This is an appended report. These results have been appended to a previously final verified report. Tissue Topography unknown / Unknown 11/06/2024 11:34 AM EDT 11/06/2024 12:18 PM EDT Comment:Pre-op diagnosis: Surgical wound infection [T81.49XA] Narrative [facility] - 11/14/2024 1:25 [...] GENERAL ATIYA FRITZ Edited Result - Final [facility] [address] [place] [address] * (ABNORMAL) Routine Culture and Gram Stain (11/06/2024 11:29 AM EDT) Culture Moderate Growth 5:29 PM EDT [facility] Culture Enterobacter cloacae complex(A) 11/08/2024 5:29 PM EDT [facility] Comment: This isolate has been identified using the FDA Approved [employer] System For susceptibility results refer to: - [id number] The organism value for this result has been updated. These results have been appended to the previously preliminary verified report. Gram Stain Result No polymorphonuclear leukocytes seen 11/08/2024 5:29 PM EDT [facility] Gram Stain Result No organisms seen 11/08/2024 5:29 PM EDT [facility] Swab Topography unknown / Unknown 11/06/2024 11:29 AM EDT 11/06/2024 12:19 PM EDT Comment:Pre-op diagnosis: Surgical wound infection [T81.49XA] us Nathaly Nowak MD LAB MICROBIOLOGY - GENERAL ATIYA FRITZ Final Result Performing Organization Address [facility] Co de Phone Number [facility] [address] [place] [address] * Fungal Culture, Routine (11/06/2024 11:29 AM EDT) Culture No Fungal Growth at 1 Week 11/13/2024 8:29 AM EDT [facility] Swab Topography unknown / Unknown 11/06/2024 11:29 AM EDT 11/06/2024 12:19 PM EDT Comment:Pre-op diagnosis: Surgical wound infection [T81.49XA] us Nathaly Nowak MD LAB MICROBIOLOGY - GENERAL ORDE RABONEIDA Final Result Performing Organization Address [facility] Co de Phone Number [facility] [address] [place] [address] * (ABNORMAL) Anaerobic Culture (11/06/2024 11:29 AM EDT) Culture No anaerobes isolated 11/14/2024 1:25 PM EDT [facility] Culture Streptococcus mitis/oralis group(A) 11/14/2024 1:25 PM EDT [facility] Comment: This result was determined by MALDI tof mass spectrometry using the [employer] database and is for research use only. The organism value for this result has been updated. These results have been appended to the previously preliminary verified report. This is a corrected result. Previous organism was Mixed skin clifton on 11/10/2024 at 0718 EDT. Culture Staphylococcus pseudintermedius( A) 11/14/2024 1:25 PM EDT [facility] Comment: This isolate has been identified using the FDA Approved [employer] System This is an appended report. These results have been appended to a previously final verified report. Swab Topography unknown / Unknown 11/06/2024 11:29 AM EDT 11/06/2024 12:19 PM EDT Comment:Pre-op diagnosis: Surgical wound infection [T81.49XA] Narrative [facility] - 11/14/2024 1:25 [...] Edited Result - Final Performing Organization Address [facility]/ZIP Co de Phone Number [facility] [address] [place] [address] * Routine Culture and Gram Stain (11/06/2024 11:28 AM EDT) Culture No growth at day 4 2024 11:24 AM EDT [facility] Gram Stain Result No organisms seen 11/10/2024 11:24 AM EDT [facility] Gram Stain Result No polymorphonuclear leukocytes seen 11/10/2024 11:24 AM EDT [facility] Swab Topography unknown / Unknown 11/06/2024 11:28 AM EDT 11/06/2024 12:20 PM EDT Comment:Pre-op diagnosis: Surgical wound infection [T81.49XA] Nathaly Nowak MD LAB MICROBIOLOGY - GENERAL ATIYA FRITZ Final Result Performing Organization Address [facility] Co de Phone Number [facility] [address] [place] [address] * Fungal Culture, Routine (11/06/2024 11:28 AM EDT) Culture No Fungal Growth at 1 Week 11/13/2024 8:29 AM EDT [facility] Swab Topography unknown / Unknown 11/06/2024 11:28 AM EDT 11/06/2024 12:20 PM EDT Comment:Pre-op diagnosis: Surgical wound infection [T81.49XA] Nathaly Nowak MD LAB MICROBIOLOGY - GENERAL ORDE LAM Final Result Performing Organization Address City/[facility]/ZIP Co de Phone Number [facility] [address] [place] [address] * Anaerobic Culture (11/06/2024 11:28 AM EDT) Culture No growth at day 4 11/13/2024 12:53 PM EDT [facility] Swab Topography unknown / Unknown 11/06/2024 11:28 AM EDT 11/06/2024 12:20 PM EDT Comment:Pre-op diagnosis: Surgical wound infection [T81.49XA] us Nathaly Nowak MD LAB MICROBIOLOGY - GENERAL [facility] Final Result Performing Organization Address City/[facility]/ZIP Co de Phone Number [facility] [address] [place] [address] * (ABNORMAL) POCT glucose meter (11/06/2024 10:16 AM EDT) [facility] POCT Glucose 194(H) 74 - [...] Comment 11/06/2024 10:18 AM EDT [facility] Keyboard Operator ID Lacy Griffin 11/07/19 10:18 AM EDT [facility] Device ID [id number] 11/06/2024 10:18 AM EDT [facility] Specimen Type POC Capillary 11/06/2024 10:18 AM EDT [facility] Blood Capillary blood specimen / Unknown 11/06/2024 10:16 AM EDT 11/06/2024 10:18 AM EDT us Nathaly Nowak MD LAB POINT OF CARE TE ST DOCKED DEVICE UNSOLICITED RESULTS Final Result Performing Organization Address City/[facility]/ZIP Co de Phone Number [facility] [address] [place] [address] * (ABNORMAL) POCT glucose meter (11/06/2024 5:58 AM EDT) [facility] POCT Glucose 182(H) 74 - [...] 11/06/2024 6:01 AM EDT [facility] Keyboard Operator ID Raj Laird 11/07/19 6:01 AM EDT [facility] Device ID [id number] 11/06/2024 6:01 AM EDT [facility] Specimen Type POC Capillary 11/06/2024 6:01 AM EDT [facility] Blood Capillary blood specimen / Unknown 11/06/2024 5:58 AM EDT 11/06/2024 6:01 AM EDT Nathaly Nowak MD LAB POINT OF CARE TE ST DOCKED DEVICE UNSOLICITED RESULTS Final Result [facility] [address] [place] [address] * (ABNORMAL) POCT glucose meter (11/06/2024 5:36 AM EDT) [facility] POCT Glucose 202(H) 74 - [...] 11/06/2024 5:38 AM EDT [facility] Keyboard Operator ID Shahid Sanches 11/06/2024 5:38 AM EDT [facility] Device ID [id number] 11/06/2024 5:38 AM EDT [facility] Specimen Type POC Capillary 11/06/2024 5:38 AM EDT [facility] Blood Capillary blood specimen / Unknown 11/06/2024 5:36 AM EDT 11/06/2024 5:38 AM EDT us Nathaly Nowak MD LAB POINT OF CARE TE ST DOCKED DEVICE UNSOLICITED RESULTS Final Result Performing Organization Address City/[facility] Co de Phone Number [facility] [address] [place] [address] * (ABNORMAL) Hemoglobin A1c (11/06/2024 1:07 AM EDT) Hemoglobin A1c 7.6(H) <5.7 % 11/06/2024 11:09 AM EDT [facility] Blood Venous blood specimen / Unknown Venipuncture / Unknown 11/06/2024 1:07 AM EDT 11/06/2024 1:26 AM EDT Narrative [facility] - 11/06/2024 11:09 AM EDT HA1C Interpretive Data: Diagnosis of Diabetes: Diabetic > or = 6.5% Pre-diabetic 5.7 to 6.4% Non-diabetic < or = 5.6% Glycemic Targets for Type I and Type II Diabetics: Non- Adults <7.0% Adults <6.0% Children and Adolescents <7.5% Source: [place] [employer]. Standards of medical care in diabetes,2017. Diabetes Care.2017:40 (suppl 1):S1-S135. us Nathaly Nowak MD LAB BLOOD ORDERABLES Final Resu lt Performing Organization Address City/[facility] Co de Phone Number [facility] [address] [place] [address] * Blood Culture (Aerobic/Anaerobet Set) (11/06/2024 1:07 AM EDT) Culture No growth at day 5 11/11/2024 2:49 AM EDT [facility] Blood Structure of right hand / Unknown Venipuncture / Unknown 11/06/2024 1:07 AM EDT 11/06/2024 2:36 AM EDT us Nathaly Nowak MD LAB MICROBIOLOGY - GENERAL ORDE RABLES Final Result [facility] [address] [place] [address] * Blood Culture (Aerobic/Anaerobet Set) (11/06/2024 1:07 AM EDT) Pathologist [facility] Culture No growth at day 5 11/11/2024 3:01 AM EDT [facility] Blood Structure of antecubital vein / Unknown Venipuncture / Unknown 11/06/2024 1:07 AM EDT 11/06/2024 2:36 AM EDT us Nathaly Nowak MD LAB MICROBIOLOGY - GENERAL [facility] LAM Final Result [facility] [address] [place] [address] * (ABNORMAL) Basic metabolic panel (11/06/2024 1:07 AM EDT) Glucose, Plasma 207(H) 74 - 99 mg/dL 11/06/2024 1:41 AM EDT [facility] BUN, Plasma 20 8 - 23 mg/dL 11/06/2024 1:41 AM EDT [facility] Creatinine, Plasma 0.92 0.70 - 1.20 mg/dL 11/06/2024 1:41 AM EDT [facility] BUN/Creatinine Ratio 22 11/06/2024 1:41 AM EDT [facility] Sodium, Plasma 136 136 - 145 mmol/L 11/06/2024 1:41 AM EDT [facility] Potassium, Plasma 4.5 3.6 - 4.9 mmol/L 11/06/2024 1:41 AM EDT [facility] Chloride, Plasma 104 97 - 107 mmol/L 11/06/2024 1:41 AM EDT [facility] CO2, Plasma 22 22 - 29 mmol/L 11/06/2024 1:41 AM EDT [facility] Anion Gap 10 6 - 16 mmol/L 11/06/2024 1:41 AM EDT [facility] Total Calcium, Plasma 9.0 8.9 - 10.2 mg/dL 11/06/2024 1:41 AM EDT [facility] eGFRcr 92.3 mL/min/1.7 3m*2 11/06/2024 1:41 AM EDT [facility] Comment:Reported eGFRcr in m L/min/1.73m2 is based the CKD-EPI 2020 equation that does not use a race coefficient. Blood Venous blood specimen / Unknown Venipuncture / Unknown 11/06/2024 1:07 AM EDT 11/06/2024 1:12 AM EDT Nathaly Nowak MD LAB BLOOD ORDERABLES Final Resu lt Performing Organization Address City/[facility]/ZIP Co de Phone Number [facility] [address] [place] [address] * Phosphorus (11/06/2024 1:07 AM EDT) Phosphorus, Plasma 3.2 2.5 - 4.5 mg/dL 11/06/2024 1:[address] [facility] Blood Venous blood specimen / Unknown Venipuncture / Unknown 11/06/2024 1:07 AM EDT 11/06/2024 1:12 AM EDT Nathaly Nowak MD LAB BLOOD ORDERABLES Final Resu lt Performing Organization Address [facility] Co de Phone Number [facility] [address] [place] [address] * Magnesium (11/06/2024 1:07 AM EDT) Magnesium, Plasma 2.2 1.9 - 2.4 mg/dL 11/06/2024 1:41 AM EDT [facility] Blood Venous blood specimen / Unknown Venipuncture / Unknown 11/06/2024 1:07 AM EDT 11/06/2024 1:12 AM EDT Nathaly Nowak MD LAB BLOOD ORDERABLES Final Resu lt Performing Organization Address City/[facility]/ZIP Co de Phone Number [facility] [address] [place] [address] * (ABNORMAL) CBC (11/06/2024 1:07 AM EDT) [facility] Signature WBC Count 9.70 3.70 - 10.30 10*3/uL LAB HEMATOLOGY METHOD 11/06/2024 1:19 AM EDT [facility] RBC Count 2.89(L) 4.60 - 6.10 10*6/uL LAB HEMATOLOGY METHOD 11/06/2024 1:19 AM EDT [facility] HGB 8.8(L) 13.7 - 17.5 g/dL LAB HEMATOLOGY METHOD 11/06/2024 1:19 AM EDT [facility] HCT 26.2(L) 40.0 - 51.0 % LAB HEMATOLOGY METHOD 11/06/2024 1:19 AM EDT [facility] Platelet Count 542(H) 155 - 369 10*3/uL LAB HEMATOLOGY METHOD 11/06/2024 1:19 AM EDT [facility] MCV 91 79 - 98 fL LAB HEMATOLOGY METHOD 11/06/2024 1:19 AM EDT [facility] MCH 30.4 26.0 - 32.0 pg LAB HEMATOLOGY METHOD 11/06/2024 1:19 AM EDT [facility] MCHC 33.6 30.7 - 35.5 g/dL LAB HEMATOLOGY METHOD 11/06/2024 1:19 AM EDT [facility] RDW 13.2 11.5 - 14.5 % LAB HEMATOLOGY METHOD 11/06/2024 1:19 AM EDT [facility] MPV 8.7(L) 8.8 - 12.5 fL LAB HEMATOLOGY METHOD 11/06/2024 1:19 AM EDT [facility] nRBC 0.0 <=0.0 per 100 WBCs LAB HEMATOLOGY METHOD 11/06/2024 1:19 AM EDT [facility] Blood Venous blood specimen / Unknown Venipuncture / Unknown 11/06/2024 1:07 AM EDT 11/06/2024 1:12 AM EDT us Nathaly Nowak MD LAB BLOOD ORDERABLES Final Resu lt [facility] [address] [place] [address] * Gold Top (11/06/2024 12:58 AM EDT) Extra Hold for add-ons 11/06/2024 3:21 AM EDT [facility] Comment:Auto resulted. Blood Venous blood specimen / Unknown 11/06/2024 12:58 AM EDT 11/06/2024 1:13 AM EDT us Nathaly Nowak MD LAB BLOOD ORDERABLES Final Resu lt [facility] [address] [place] [address] * Gold Top (11/06/2024 12:58 AM EDT) Extra Hold for add-ons 11/06/2024 3:21 AM EDT [facility] Comment:Auto resulted. Blood Venous blood specimen / Unknown 11/06/2024 12:58 AM EDT 11/06/2024 1:13 AM EDT us Nathaly Nowak MD LAB BLOOD ORDERABLES Final Resu lt Performing Organization Address City/[facility]/ZIP Co de Phone Number [facility] [address] [place] [address] * Light Green Top (11/06/2024 12:58 AM EDT) Extra Hold for add-ons 11/06/2024 3:21 AM EDT [facility] Comment:Auto resulted. Blood Venous blood specimen / Unknown 11/06/2024 12:58 AM EDT 11/06/2024 1:13 AM EDT us Nathaly Nowak MD LAB BLOOD ORDERABLES Final Resu lt Performing Organization Address City/[facility]/ZIP Co de Phone Number [facility] [address] [place] [address] * Light Blue Top (11/06/2024 12:58 AM EDT) Extra Hold for add-ons 11/06/2024 3:21 AM EDT [facility] Comment:Auto resulted. Blood Venous blood specimen / Unknown 11/06/2024 12:58 AM EDT 11/06/2024 1:13 AM EDT us Nathaly Nowak MD LAB BLOOD ORDERABLES Final Resu lt Performing Organization Address [facility] Co de Phone Number [facility] [address] [place] [address] * Light Blue Top (11/06/2024 12:58 AM EDT) Pathologist [facility] Extra Hold for add-ons 11/06/2024 3:21 AM EDT [facility] Comment:Auto resulted. Blood Venous blood specimen / Unknown 11/06/2024 12:58 AM EDT 11/06/2024 1:13 AM EDT Nathaly Nowak MD LAB BLOOD ORDERABLES Final Resu lt Performing Organization Address [facility] de Phone Number [facility] [address] [place] [address] * (ABNORMAL) POCT glucose meter (11/06/2024 12:45 AM EDT) Pathologist [facility] POCT Glucose 204(H) 74 - 99 [...] 11/06/2024 12:48 AM EDT [facility] Keyboard Operator ID Raj Laird 11/07/19 12:48 AM EDT [facility] Device ID [id number] 11/06/2024 12:48 AM EDT [facility] Specimen Type POC Capillary 11/06/2024 12:48 AM EDT [facility] Blood Capillary blood specimen / Unknown 11/06/2024 12:45 AM EDT 11/06/2024 12:48 AM EDT Nathaly Nowak MD LAB POINT OF CARE TE ST DOCKED DEVICE UNSOLICITED RESULTS Final Result [facility] [address] [place] [address] documented in this encounter Visit Diagnoses Diagnosis [...] Every 15 min PRN, Starting on Yadira /14/25 at 0854, Until Mon11/14/24 at 1804, Administer [...] times daily with meals, First dose on 11/11/24 at 1730, Until Discontinued, Routine Given 11/14/2024 [...] Starting on Mon11/06/24 at 0031, Until [facility] 11/14/24 at 1804, Routine, line care [...] Starting on Mon11/06/24 at 0753, Until [facility] 11/14/24 at 1804, Routine, On Unit [...] on Mon11/07/24 at 0945, Until Discontinued, Routine [phone] (Not [...] Provider: Devora Bo)2122 (Given - Provider: Jonathan Vlae RN) 0838 (Given - Provider: Devora Bo)2031 [...] RN) 232 (New Bag - Provider: Jonathan Vale, [...] documented as of this encounter Care Teams Scarf Gluer Relationship Specialty Start Date End Date Asad Victor MD [address] [place] [address] PCP - General 10/07/22 documented as of this encounter
--- OUTSIDE RECORDS SUMMARY | 2024-11-06 10:47 | XMS_ITS | Encounter Summary ---
Author Organization Healthcare Address [address] [place] [address] Care Team Providers Care Actuarial Internship Name Role Phone Asad Victor MD Primary Care Provider + [phone] Reason for Visit * Auth/Cert (Routine) Specialty Diagnoses / Procedures Referred By Contac t Referred To Contact Diagnoses Wound infection Post-op Vasc Sx wounds - sx on 10/17 at Nathaly Nowak MD [address] [facility] [address] [place] [address] Phone: tel: fax: [facility] Emergency Department [address] [place] [address] Phone: tel: Referral ID Status Reason Start Date Expiration Date Visits Re quested Visits Authorized [id number] 1 1 Encounter Details Date Type Department Care Team (Late st Contact Info) Description 11/06/2024 10:47 AM EDT Anesthesia Event [facility] OPERATING ROOM [address] [place] [address] Bill Sue MD [address] [place] [address] Sabrina Mckeon PA [address] [facility] [address] [place] [address] Anesthesia Record Procedure Summary Procedure [...] any time in the past 12 m [facility], were you homeless or living [...] drink first t dino in the morning (EYE-CUFF CUTTER) to steady your nerves or to get [...] and Staff Patient location during procedure: OR BRAILLE TRANSCRIBER: Asad Lechuga CRNA, DNP Performed: BRAILLE TRANSCRIBER Patient Condition Indications for airway management: anesthesia [...] to dentition. * Anesthesia Preprocedure Evaluation - iBll Sue MD - 11/06/2024 8:54 AM EDT Procedure Information Date/Time: 11/06/24 1008 Procedure: Left groin exploration and washout, possible wound vac placement (Left) Location: [facility] OR 16 / [place] OR Surgeons: Nathaly Nowak MD [facility] Mono Ana Bobby is [...] Abnormal Ventricular Rate 85 Atrial Rate 85 MO Interval 146 QRSD Interval 128 QT Interval 390 QTC Interval 464 P [place] 52 R [place] 263 T Wave [place] 57 Diagnosis Atrial-sensed ventricular-paced rhythm Diagnosis Biventricular [...] is no recent study available for direct uelk-xg-elaz comparison. [facility]: Pre-operative CIED Report Assessment and Sara- Procedural Reommendations: Name: Mono Bobby Date: 10/17/2024 : 1960 Age: 64 y.o. Patient has a Furnace Converter: Berger INK MAKER-PM Remaining battery longevity adequate. Lead integrity test [...] RVR s/p CABG), CAD (CAD s/p multiple NE's and 3V CABG02/2019, 2 stents prior to CABG), carotid artery disease (carotid artery disease s/p R CEA 2016), dysrhythmias (3rd degree AV block INK MAKER-P placed 08/2023 for Wenkeback with 11 sec pause), hyperlipidemia, pacemaker and PVD. Does not have angina, CHF, murmur, orthopnea, syncope or valvular heart disease. hypertension: Cardio additional comments: Follows with OSH Card last seen 09/25/24 ([place]) . Respiratory: home oxygen (2L). no asthma: [...] ENDARTERECTOMY N/A 2017 Endarterectomy Carotid Artery from [facility] CORONARY ANGIOPLASTY Left Coronary Angiography With Concomitant Left Heart Catheterization from [facility] CORONARY ARTERY BYPASS GRAFT N/A 2018 3V ELBOW SURGERY Right ENDARTERECTOMY Left 10/17/2024 common/SFA/Profunda thromboendarterectomy, EIA/BARREL ENDSHAKER ADJUSTER stent HERNIA REPAIR KNEE ARTHROSCOPY Left VASCULAR SURGERY Left 09/21/2024 BARREL ENDSHAKER ADJUSTER pseudoaneurym injection [5] Social History Tobacco Use [...] 2:00 PM EDT Office Visit [facility] [address] [facility] [place] [address] Oscar Appiah MD [address] [facility] [address] [place] [address] 12/19/2024 7:30 AM EDT Appointment [facility] Vascular Lab [address] [facility] 5th Floor [address] [place] [address] 12/19/2024 8:00 AM EDT Appointment [facility] Vascular Lab [address] [place] [address] 12/19/2024 9:00 AM EDT Office Visit [facility] Comprehensive Vascular Clinic [address] [place] [address] Nathaly Nowak MD [address] [facility] [address] [place] [address] documented as of this encounter Goals Goal Patient Goal Type Associated Problems Recent Progress Patient-Stated? Author Autogenera louise Goal Care Plan Autogenerated Problem No Ekta Arnett documented as of this encounter Procedures Procedure Name Priority Date/Time Associated Diagnosis Comments PB ANESTHESIA PLACEHOLDER Routine 11/06/2024 10:58 AM EDT [place] AN ELECTIVE ENDOTRACHEAL AIRWAY Routine 11/06/2024 10:58 AM EDT documented in this encounter Results * [place] AN ELECTIVE ENDOTRACHEAL AIRWAY, PB ANESTHESIA PLACEHOLDER (11/06/2024 10:58 AM EDT) Narrative Asad Lechuga CRNA, DNP - 11/06/2024 10:58 AM EDT Asad Lechuga CRNA, DNP 11/06/2024 11:05 AM Airway Date/Time: 11/06/2024 10:58 AM Reason: elective Airway not difficult General Information and Staff Patient location during procedure: OR BRAILLE TRANSCRIBER: Asad Lechuga CRNA, DNP Performed: ISH Patient [...] documented as of this encounter Care Teams Actuarial Internship Relationship Specialty Start Date End Date Asad Victor MD [address] [place] [address] PCP - General 10/07/22 documented as of this encounter
--- OUTSIDE RECORDS SUMMARY | 2024-12-08 09:14 | XMS_ITS | Encounter Summary ---
Author Organization Healthcare Address [address] [place] [address] Care Team Providers Care Learning Disabilities Resource Teacher Name Role Phone Asad Victor MD Primary Care Provider + [phone] Encounter Details Date Type Department Care Team (Late st Contact Info) Description 12/04/2024 Telephone [facility] [address] [facility] [address]th [address] [place] [address] Nathaly Nowak MD [address] [facility] [address] [place] [address] Social History Tobacco Use Types [...] drink first t dino in the morning (EYE-FURNACE CHARGING MACHINE OPERATOR) to steady your nerves or to get rid of a hangover? 0 10/18/2021 CAGE Questionnaire Score 0 022 Utilities Answer Date Recorded In the past 12 months has th e [employer], gas, oil, or water company threatened to [...] EDT Returned phone call to Judy at [facility]. Patient previously stated that he is receiving wound care at [facility]. We unfortunately do not have these records at this time, we have sent two requests and are awaiting them at this time. Patient has not yet been seen in clinic for his post-operative appointment. * Telephone Encounter - Clare Fleming - 12/04/2024 11:35 AM EDT Clinical Concern/Question Reason for Call: judy at [facility] calling for wound measurements for wound vac. Please call Best contact number: Other: [phone] [phone] Optimal time of day to reach caller: [...] PM EDT Office Visit [facility] [address] [place] [address] Oscar Appiah MD [address] [facility] [address] [place] [address] 12/19/2024 7:30 AM EDT Appointment [facility] [address] [place] [address] 12/19/2024 8:00 AM EDT Appointment [facility] [address] [facility] [address] [place] [address] 12/19/2024 9:00 AM EDT Office Visit [facility] [address] [facility] [address] [place] [id number] Nathaly Nowak MD [address] [facility] [address] [place] [address] documented as of this encounter [...] as of this encounter Care Teams Learning Disabilities Resource Teacher Relationship Specialty Start Date End Date Asad Victor MD [address] [place] [address] PCP - General 10/07/22 documented as of this encounter
--- OUTSIDE RECORDS SUMMARY | 2024-12-08 09:16 | XMS_ITS | Encounter Summary ---
Author Organization [facility] Address [address] [place] [address] Care Team Providers Care Drafter Mechanical Name Role Phone Asad Victor MD Primary Care Provider + [phone] Encounter Details Date Type Department Care Team [...] drink first t dino in the morning (EYE-FINANCIAL SERVICES TECHNICIAN) to steady your nerves or to [...] Description 12/13/2024 2:00 PM EDT Office Visit [facility] [address] [facility] [place] [address] Oscar Appiah MD [address] [facility] [address] [place] [address] 12/19/2024 7:[address] [facility] [address] [place] [address] 12/19/2024 8:[address] [facility] [address] [place] [address] 12/19/2024 9:00 AM EDT Office Visit [facility] [address] [place] [address] Nathaly Nowak MD [address] [place] [address] documented as of this encounter Goals Goal [...] documented as of this encounter Care Teams Drafter Mechanical Relationship Specialty Start Date End Date Asad Victor MD [address] [place] [address] PCP - General 10/07/22 documented as of this encounter
--- OUTSIDE RECORDS SUMMARY | 2024-12-08 09:16 | XMS_ITS | Clinical Summary ---
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 (ABNORMAL) Blood gas, arterial (10/17/2024 11:48 AM EDT) Only the most recent of4 resultswithin the time period is included. pH, Arterial 7.34 7.31 - 7.42 LAB HEMATOLOGY METHOD 10/17/2024 11:54 AM EDT [facility] pCO2, Arterial 41 32 - 45 mmHg LAB HEMATOLOGY METHOD 10/17/2024 11:54 AM EDT [facility] pO2, Arterial 202 >80 mmHg LAB HEMATOLOGY METHOD 10/17/2024 11:54 AM EDT [facility] SO2, Measured, Arterial 100(H) 94 - 98 % LAB HEMATOLOGY METHOD 10/17/2024 11:54 AM EDT [facility] Base Excess, Arterial -3.2(L) -2.0 - 3.0 mmol/L LAB HEMATOLOGY METHOD 10/17/2024 11:54 AM EDT [facility] Bicarbonate, Calculated, Arterial 22 22 - 26 mmol/L LAB HEMATOLOGY METHOD 10/17/2024 11:54 AM EDT [facility] Hematocrit, Whole Blood 28.6(L) 40.0 - 51.0 % LAB HEMATOLOGY METHOD 10/17/2024 11:54 AM EDT [facility] Sodium, Whole Blood 137 136 - 145 mmol/L LAB HEMATOLOGY METHOD 10/17/2024 11:54 AM EDT [facility] Potassium, Whole Blood 4.5 3.6 - 4.9 mmol/L LAB HEMATOLOGY METHOD 10/17/2024 11:54 AM EDT [facility] Chloride, Whole Blood 112(H) 97 - 107 mmol/L LAB HEMATOLOGY METHOD 10/17/2024 11:54 AM EDT [facility] Glucose, Whole Blood 201(H) 74 - 99 mg/dL LAB HEMATOLOGY METHOD 10/17/2024 11:54 AM EDT [facility] Ionized Calcium, Whole Blood 4.8 4.6 - 5.1 mg/dL LAB HEMATOLOGY METHOD 10/17/2024 11:54 AM EDT [facility] Lactate, Arterial, Whole Blood 2.3(H) 0.5 - 1.6 mmol/L LAB HEMATOLOGY METHOD 10/17/2024 11:54 AM EDT [facility] Blood Arterial blood specimen / Unknown Arterial Puncture / Unknown 10/17/2024 11:48 AM EDT 10/17/2024 11:53 AM EDT Jenna Lopez [employer] LAB BLOOD ORDERABLES Final Re sult [facility] [address] [place] [address] * Surgical Pathology Exam (10/17/2024 10:27 AM EDT) Case Report Surgical Pathology Case: [id number] Authorizing Provider: Terrell Gautam MD Collected: 10/17/2024 1027 Ordering Location: [facility] Received: 10/17/2024 1325 Pathologist: Haydee Osborne MD Specimen: Other (specify site), left common femoral plaque 10/21/2024 10:16 AM EDT [facility] Final Diagnosis A. LEFT COMMON FEMORAL PLAQUE, EXCISION: - CALCIFIED PLAQUE 10/21/2024 10:16 AM EDT [facility] at 1016 EDT Clinical Information Critical limb ischemia of left lower extremity [I70.222] 10/21/2024 10:16 AM EDT [facility] Gross Description A. LEFT COMMON FEMORAL PLAQUE Received in formalin labeled l eft common femoral plaque , is one aggregate of red-gabriel hard portions of plaque measuring 3.7 x 2.5 x 0.9 cm. The specimen is serially sectioned and solar sales representative and assessor sections are submitted in cassette A1. Cold Time: <1m Kenia Aceves 10/21/2024 10:16 AM EDT [facility] Note: A resident was involved in the service. I attest I examined the relevant preparations for the specimens and confirmed the diagnosis or interpretation. 10/21/2024 10:16 AM EDT [facility] Tissue Topography unknown / Unknown 10/17/2024 10:27 AM EDT 10/17/2024 1:25 PM EDT Comment:Pre-op diagnosis: Critical limb ischemia of left lower extremity [I70.222] us Terrell Gautam MD LAB PATHOLOGY ORDERABLES Gwen grimaldo Result [facility] [address] [place] [address] * ANESTHESIA ULTRASOUND GUIDED (10/17/2024 8:52 AM [...] Performed by Swetha Villareal MD Staffing Performed: PRODUCTION TOOL ENGINEER PRODUCTION TOOL ENGINEER: Jenna Lopez CRNA Maria Fernanda Mccallum MD ANESTHESIA ORDERABLES Edite d Result - Final * [place] AN ELECTIVE ENDOTRACHEAL AIRWAY, PB ANESTHESIA PLACEHOLDER (10/17/2024 8:03 AM EDT) Narrative Jenna Lopez CRNA - 10/17/2024 8:03 AM EDT Jenna Lopez CRNA 10/17/2024 9:00 AM Airway Date/Time: 10/17/2024 8:03 AM Reason: elective Airway not difficult General Information and Staff Patient location during procedure: OR PRODUCTION TOOL ENGINEER: Jenna Lopez CRNA Performed: ISH Patient [...] Trace AR. The images were Saved in [employer]. The study was technically adequate. Comments: I [...] Modality Other Narrative 10/17/2024 9:50 AM EDT [facility]: Pre-operative CIED Report Assessment and Sara-Procedural Reommendations: Name: Mono Bobby Date: 10/17/2024 : 1960 Age: 64 y.o. Patient has a Ski Maker Wood: Berger FOOD SERVICES COORDINATOR-PM Remaining battery longevity adequate. Lead integrity [...] 7:15 PM EDT CLINICAL INDICATION: s/p L MATERIAL ATTENDANT pseudoaneurysm injection TECHNIQUE: Non-invasive, real time duplex [...] sac. The following flow velocities were obtained: MATERIAL ATTENDANT: 114 cm/s SFA: 0 cm/s PFA: 278 cm/s Popliteal A: 41 cm/s VICE PRESIDENT CONSULTING SERVICES distal: 43 cm/s DPA: 67 cm/s Pseudoaneurysm sac: 0 cm/s Procedure Note Neil Isaac MD - 09/22/2024 CLINICAL INDICATION: s/p L MATERIAL ATTENDANT pseudoaneurysm injection TECHNIQUE: Non-invasive, real time duplex exam of the lower extremity arterialcirculation with Doppler ultrasonic waveform and spectral analysis wasperformed. COMPARISON: Post pseudoaneurysm thrombin injection arterial duplex [id number]/28/2025; Following thrombin injection of the left common femoral arterypseudoaneurysm, no active flow is noted. Study suggests successfulthrombin injection therapy FINDINGS: Left: Following thrombin injection, an echogenic thrombus is noted within thepseudoaneurysm sac. Color and pulsed Doppler analysis demonstrates anabsence of flow within the pseudoaneurysm sac. The following flowvelocities were obtained: MATERIAL ATTENDANT: 114 cm/s SFA: 0 cm/s PFA: 278 cm/s Popliteal A: 41 cm/s VICE PRESIDENT CONSULTING SERVICES distal: 43 cm/s DPA: 67 cm/s Pseudoaneurysm [...] ECG Atrial Rate 85 BPM MUSE ECG NJ Interval 146 ms MUSE ECG QRSD Interval 128 ms MUSE ECG QT Interval 390 ms MUSE ECG QTC Interval 464 ms MUSE ECG P Garfield 52 degrees MUSE ECG R Garfield 263 degrees MUSE ECG T Wave Garfield 57 degrees MUSE ECG Diagnosis Atrial-sensed ventricular-pace [...] Reactive Non Reactive 09/20/2024 11:39 PM EDT [facility] Comment:Screening for HIV 1 & 2 antibodies, and P24 antigen is NONREACTIVE. No confirmatory testing is required. Blood Venous blood specimen / Unknown Venipuncture / Unknown 09/20/2024 10:33 PM EDT 09/20/2024 10:54 PM EDT Giorgi Perkins MD LAB BLOOD ORDERABLES Final Result [facility] [address] [place] [address] * Hepatitis C Antibody - ED (09/20/2024 10:33 PM EDT) Hepatitis C Antibody Negative Negative 09/20/2024 11:39 PM EDT [facility] Blood Venous blood specimen / Unknown Venipuncture / Unknown 09/20/2024 10:33 PM EDT 09/20/2024 10:53 PM EDT Giorgi Perkins MD LAB BLOOD ORDERABLES Final Result [facility] [address] [place] [address] * APTT (09/20/2024 10:33 PM EDT) aPTT 28 25 - 35 sec LAB COAGULATION METHOD 09/21/2024 12:19 AM EDT [facility] Blood Venous blood specimen / Unknown Venipuncture / Unknown 09/20/2024 10:33 PM EDT 09/20/2024 10:42 PM EDT us Giorgi Perkins MD LAB BLOOD ORDERABLES Final Result Performing Organization Address City/[facility]/ZIP Co de Phone Number [facility] [address] [place] [address] from Last 3 Months Additional Health Concerns Active Problems Noted Date Diagnosed Date Autogenerated Problem 09/23/2024 Insurance MEDICAID [facility] MEDICARE Advance Directives * Full [...] Patient has decision-making capacity? Yes Care Teams Community Health Outreach Worker Relationship Specialty Start Date End Date Asad Victor MD [address] [place] [address] PCP - General 10/07/22
--- OUTSIDE RECORDS SUMMARY | 2024-12-08 09:16 | XMS_ITS | Encounter Summary ---
Author Organization [facility] Address [address] [place] [address] Care Team Providers Care Oracle Architect Name Role Phone Asad Victor MD Primary Care Provider + [phone] Encounter Details Date Type Department Care Team [...] drink first t dino in the morning (EYE-LIFTER/DRIVER) to steady your nerves or to get [...] Description 12/13/2024 2:00 PM EDT Office Visit [facility] [address] [facility] [place] [address] Oscar Appiah MD [address] [facility] [place] [place] [address] [place] [address] 12/19/2024 7:30 AM EDT Appointment [facility] Vascular Lab [address] 5th Floor Wing [address] [place] [address] 12/19/2024 8:00 AM EDT Appointment [facility] Vascular Lab [address] 5th Floor [address] [place] [address] 12/19/2024 9:00 AM EDT Office Visit [facility] [address] 5th Floor Wing [address] [place] [address] Nathaly Nowak MD [address] [place] [address] documented as of this encounter Goals Goal [...] documented as of this encounter Care Teams Oracle Architect Relationship Specialty Start Date End Date Asad Victor MD [address] [place] [address] PCP - General 10/07/22 documented as of this encounter
--- OUTSIDE RECORDS SUMMARY | 2024-12-08 09:16 | XMS_ITS | Encounter Summary ---
Author Organization Healthcare Address [address] [id number] Care Team Providers Care Service Consultant Name Role Phone Asad Victor MD Primary Care Provider + [phone] Reason for Visit * Reason Onset Date Comments HCN Clinical Concern/Question 11/15/2024 Encounter Details Date Type Department Care Team (Late st Contact Info) Description 11/15/2024 [facility]phone [facility] [address] [facility] 5th Floor Wing D, [address] [place] [address] Nathaly Nowak MD [address] [facility] [address] [place] [address] HCN Clinical Concern/Question Social History [...] first t dino in the morning (EYE-RAILROAD TRACK REPAIR SUPERVISOR) to steady your nerves or to [...] has been receiving his wound care through [facility] in [place]. Records requested from there. Post-op appointment request [...] with info. Thank you Best contact number: [phone] (mobile) Optimal time of day to reach [...] Description 12/13/2024 2:00 PM EDT Office Visit [facility] [address] [place] [address] Oscar Appiah MD [address] [facility] [address] [place] [address] 12/19/2024 7:[address] [facility] Vascular Lab [address]th [address], [address] [place] [address] 12/19/2024 8:[address] [facility] Vascular Lab [address] 5th [address] [place] [address] 12/19/2024 9:00 AM EDT Office Visit [facility] Comprehensive Vascular Clinic [address] [place] [address] Nathaly Nowak MD [address] [facility] [address] [place] [address] documented as of this encounter Goals Goal [...] as of this encounter Care Teams Service Consultant Relationship Specialty Start Date End Date Asad Victor MD [address] [place] [address] PCP - General 10/07/22 documented as of this encounter
--- OUTSIDE RECORDS SUMMARY | 2024-12-08 09:16 | XMS_ITS | Encounter Summary ---
Author Organization Healthcare Address [address] [id number] Care Team Providers Care Curing Pickling Packer Name Role Phone Asad Victor MD Primary Care Provider + [phone] Encounter Details Date Type Department Care Team (Late st Contact Info) Description 10/22/2024 Telephone Vascular Surgery [address] [place] [address] Alison Beltrán, ORGANIC PREPARATION ANALYST, DNP [address] [facility] [address] [place] [address] Social History Tobacco Use Types Packs/Day Years [...] drink first t dino in the morning (EYE-UI PROGRAMMER) to steady your nerves or to get [...] Notes * Telephone Encounter - Alison Beltrán, ORGANIC PREPARATION ANALYST, DNP - 10/22/2024 11:39 AM EDT Returned patient call. Patient s/p left common/superficial/profunda femoral thromboendarterectomy with bovine patch repair and left external iliac artery/SPINNER BOX stent with Dr Gautam on 10/17/24. Patient [...] Description 12/13/2024 2:00 PM EDT Office Visit [facility] [address] [place] [address] Oscar Appiah MD [address] [facility] [address] [place] [address] 12/19/2024 7:30 AM EDT Appointment [facility] Vascular Lab [address] [place] [address] 12/19/2024 8:00 AM EDT Appointment [facility] Vascular Lab [address] [place] [address] 12/19/2024 9:00 AM EDT [facility] [address] 5[address] Floor [address] [place] [address] Nathaly Nowak MD [address] [facility] [address] [place] [address] documented as of this encounter [...] as of this encounter Care Teams Curing Pickling Packer Relationship Specialty Start Date End Date Asad Victor MD [address] [place] [address] PCP - General 10/07/22 documented as of this encounter
[2024-12-08 09:17] VITALS: BP 142/56; PULSE 69; RESP 18; TEMP 36.8; O2SAT 97
--- OUTSIDE RECORDS SUMMARY | 2024-12-08 09:17 | XMS_ITS | Encounter Summary ---
Author Organization [facility] Address [address] [place] [address] Care Team Providers Care Pump Rebuilder Name Role Phone Asad Victor MD Primary Care Provider + [phone] Encounter Details Date Type Department Care Team [...] drink first t dino in the morning (EYE-PLUG SAW OPERATOR) to steady your nerves or to [...] Visit [facility] [address] [place] [address] Oscar Appiah MD [address] [address] 12/19/2024 7:30 AM EDT Appointment [facility] Vascular Lab [address] [place] [address] 12/19/2024 8:00 AM EDT Appointment [facility] V[facility] Lab [address] [facility] 5th Floor Wing D, [address] [place] [address] 12/19/2024 9:00 AM EDT Office Visit [facility] Comprehensive [facility] [address] 5[address] [place] [address] Nathaly Nowak MD [address] [facility] [address] [place] [address] documented as of this encounter [...] documented as of this encounter Care Teams Pump Rebuilder Relationship Specialty Start Date End Date Asad Victor MD [address] [place], [place] [id number] PCP - General 10/07/22 documented as of this encounter
--- OUTSIDE RECORDS SUMMARY | 2024-12-08 09:17 | XMS_ITS | Encounter Summary ---
Author Organization Healthcare Address [address] [place] [address] Care Team Providers Care Package Sealer Machine Name Role Phone Asad Victor MD Primary Care Provider + [phone] Encounter Details Date Type Department Care Team (Late st Contact Info) Description 12/07/2024 Results Follow-Up [address] [place] [address] Vaishali Kraus MD [address] [facility] [address] [place] [address] Social History Tobacco Use Types [...] drink first t dino in the morning (EYE-BOW MACHINE OPERATOR) to steady your nerves or [...] Description 12/13/2024 2:00 PM EDT Office Visit [facility] [address] [facility] [place] [address] Oscar Appiah MD [address] [facility] [address] [place] [address] 12/19/2024 7:30 AM EDT Appointment [facility] Vascular Lab [address] 5th Floor [address] [place] [address] 12/19/2024 8:00 AM EDT Appointment [facility] [address] [place] [address] 12/19/2024 9:00 AM EDT Office Visit [facility] [address] [place] [address] Nathaly Nowak MD [address] [place] [address] documented as of this encounter [...] documented as of this encounter Care Teams Package Sealer Machine Relationship Specialty Start Date End Date Asad Victor MD [address] [place] [address] PCP - General 10/07/22 documented as of this encounter
--- OUTSIDE RECORDS SUMMARY | 2024-12-08 09:17 | XMS_ITS | Encounter Summary ---
Author Organization Healthcare Address [address] [place] [address] Care Team Providers Care Grinder Operator External Tool Name Role Phone Asad Victor MD Primary Care Provider + [phone] Encounter Details Date Type Department Care Team (Late st Contact Info) Description 11/05/2024 Orders Only External Location [address] [place] [address] Provider, External Social History Tobacco Use Types [...] drink first t dino in the morning (EYE-PARTNER MANAGER) to steady your nerves or to get rid of a hangover? 0 10/18/2021 CAGE Questionnaire Score 0 022 Utilities Answer Date Recorded In the past 12 months has th e [employer], gas, oil, or water company threatened to [...] PM EDT Office Visit [facility] [address] [facility] [place] [address] Oscar Appiah MD [address] [facility] [address] [place] [address] 12/19/2024 7:30 AM EDT Appointment [facility] [address] 5th Floor [address] [place] [address] 12/19/2024 8:00 AM EDT Appointment [facility] [address] 5th Floor [address] [place] [address] 12/19/2024 9:00 AM EDT Office Visit [facility] [address] 5th Floor [address] [place] [address] Nathaly Nowak MD [address] [place] [address] documented as of this encounter Goals Goal [...] documented as of this encounter Care Teams Grinder Operator External Tool Relationship Specialty Start Date End Date Asad Victor MD [address] [place] [address] PCP - General 10/07/22 documented as of this encounter
--- OUTSIDE RECORDS SUMMARY | 2024-12-08 09:17 | XMS_ITS | Encounter Summary ---
Author Organization [facility] Address [address] [place] [address] Care Team Providers Care Brush Operator Name Role Phone Asad Victor MD Primary Care Provider + [phone] Encounter Details Date Type Department Care Team [...] drink first t dino in the morning (EYE-BOILER FITTER) to steady your nerves or to get [...] 12/13/2024 2:00 PM EDT Office Visit [facility] [address] [facility] [place] [address] Oscar Appiah MD [address] [facility] [address] [place] [address] 12/19/2024 7:30 AM EDT Appointment [facility] Vascular Lab [address] [facility] 5th Floor [address] [place] [address] 12/19/2024 8:00 AM EDT Appointment [facility] Vascular Lab [address] [facility] 5th Floor [address] [place] [address] 12/19/2024 9:00 AM EDT Office Visit [facility] Comprehensive Vascular Clinic [address] [facility] 5th Floor [address] [place] [address] Nathaly Nowak MD [address] [place] [address] documented as of this encounter [...] documented as of this encounter Care Teams Brush Operator Relationship Specialty Start Date End Date Asad Victor MD [address] [place] [address] [place] [address] PCP - General 10/07/22 documented as of this encounter
--- OUTSIDE RECORDS SUMMARY | 2024-12-08 09:17 | XMS_ITS | Encounter Summary ---
Author Organization Healthcare Address [address] [place] [address] Care Team Providers Care Inside B2B Sales Name Role Phone Asad Victor MD Primary Care Provider + [phone] Encounter Details Date Type Department Care Team (Late st Contact Info) Description 11/15/2024 Clinical Support [id number] [place] [address] Charly Orlando, PharmD [address] [place] [address] 100 [place] [address] Social History Tobacco Use Types [...] drink first t dino in the morning (EYE-OUTREACH MANAGER) to steady your nerves or to get rid of a hangover? 0 10/18/2021 CAGE Questionnaire Score 0 022 Utilities Answer Date Recorded In the past 12 months has th e [employer], gas, oil, or water company threatened to [...] Description 12/13/2024 2:00 PM EDT Office Visit [facility] [address] [facility] [place] [address] Oscar Appiah MD [address] [facility] [address] [place] [address] 12/19/2024 7:30 AM EDT Appointment [facility] [address] 5[address] [place] [address] 12/19/2024 8:00 AM EDT Appointment [facility] [address] [facility] 5th Floor [address] [place] [address] 12/19/2024 9:00 AM EDT Office Visit [facility] [address] [facility] 5th Floor [address], [address] [place] [address] Nathaly Nowak MD [address] [place] [address] documented as of this encounter [...] documented as of this encounter Care Teams Inside B2B Sales Relationship Specialty Start Date End Date Asad Victor MD [address] [place] [address] PCP - General 10/07/22 documented as of this encounter
--- OUTSIDE RECORDS SUMMARY | 2024-12-08 09:17 | XMS_ITS | Encounter Summary ---
Author Organization Healthcare Address [address] [place] [address] Care Team Providers Care Clinical Project Coordinator Name Role Phone Asad Victor MD Primary Care Provider + [phone] Encounter Details Date Type Department Care Team (Late st Contact Info) Description 10/17/2024 Orders Only External Location [address] [place] [address] Provider, External Social History Tobacco Use Types [...] drink first t idno in the morning (EYE-ACCOUNT MANAGER) to steady your nerves or to get rid of a hangover? 0 10/18/2021 CAGE Questionnaire Score 0 022 Utilities Answer Date Recorded In the past 12 months has th e [employer], gas, oil, or water [employer] threatened to shut off services in your [...] EDT Office Visit [facility] [address] [facility] [place] [address] Oscar Appiah MD [address] [facility] [address] [place] [address] 12/19/2024 7:30 AM EDT Appointment [facility] [address] 5th Floor [address] [place] [address] 12/19/2024 8:00 AM EDT Appointment [facility] [address] 5th [address] [place] [address] 12/19/2024 9:00 AM EDT Office Visit [facility] [address] 5th Floor [address], [address] [place] [address] Nathaly Nowak MD [address] [place] [address] documented as of this encounter Goals Goal [...] as of this encounter Care Teams Clinical Project Coordinator Relationship Specialty Start Date End Date Asad Victor MD [address] [place] [address] PCP - General 10/07/22 documented as of this encounter
--- OUTSIDE RECORDS SUMMARY | 2024-12-08 09:17 | XMS_ITS | Encounter Summary ---
Author Organization Healthcare Address [address] [place] [address] Care Team Providers Care Adolescent Specialist Name Role Phone Asad Victor MD Primary Care Provider + [phone] Encounter Details Date Type Department Care Team (Late st Contact Info) Description 11/27/2024 Orders Only [address] [address] Vaishali Kraus MD [address] [place] [address] [address] [place] [address] Therapeutic drug monitoring (Primary Dx) [...] drink first t dino in the morning (EYE-MATERIAL YARD CLERK) to steady your nerves or to [...] PM EDT Office Visit [facility] [address] [facility] [place] [address] Oscar Appiah MD [address] [facility] [address] [place] [address] 12/19/2024 7:30 AM EDT Appointment [facility] Lab [address] 5th Floor [address] [place] [address] 12/19/2024 8:00 AM EDT Appointment [facility] [address] 5th [address] [place] [address] 12/19/2024 9:00 AM EDT Office Visit [facility] [address] 5th [address] [place] [address] Nathaly Nowak MD [address] [place] [address] Scheduled Orders Name Type Priority [...] documented as of this encounter Care Teams Adolescent Specialist Relationship Specialty Start Date End Date Asad Victor MD [address] [place] [address] PCP - General 10/07/22 documented as of this encounter
[2024-12-08] MEDS: ERTAPENEM SODIUM 1 GM in 0.9 % SODIUM CHLORIDE 50 ML IV (09:26)
[2024-12-08] MEDS: SODIUM CHLORIDE 0.9% IV (09:55)
[2024-12-08] MEDS: MICAFUNGIN SODIUM IV (09:55)
[2024-12-08 10:06] VITALS: BP 157/47; PULSE 71; RESP 20; O2SAT 96
--- NOTE | 2024-12-08 10:15 | PC.NURSE ---
pt is currently eating breakfast. reports feeling well.
[2024-12-08 10:58] VITALS: BP 144/53; PULSE 71; RESP 20; TEMP 36.7; O2SAT 95
== END 2024-12-08 23:59 | disposition home or self-care (01) ==
LOC: INF 09:12
PROVIDERS: PCP Family Medicine
DX: T14.8XXA Other injury of unspecified body region, initial encounter (principal); L08.9 Local infection of the skin and subcutaneous tissue, unspecified; X58.XXXA Exposure to other specified factors, initial encounter; Y93.9 Activity, unspecified; Y92.9 Unspecified place or not applicable
CPT/HCPCS: 96365; 99212; G0463; J1335; J2248

== ENCOUNTER 2024-12-09 08:01 | Outpatient (RCR) | payer MEDICARE, OTHER, SELFPAY ==
[2024-12-09] MEDS: 0.9 % SODIUM CHLORIDE 50 ML 25 ML IV (08:19)
[2024-12-09 08:20] VITALS: BP 122/58; PULSE 69; RESP 14; TEMP 36.6; O2SAT 96
[2024-12-09] MEDS: SODIUM CHLORIDE 0.9% 10ML FLUSH SYRINGE 10 ML IV (08:20)
[2024-12-09] MEDS: SODIUM CHLORIDE 0.9% IV (08:20)
[2024-12-09] MEDS: MICAFUNGIN SODIUM IV (08:20)
[2024-12-09 08:42] LABS: Hematocrit 32.4 % (42.0-52.0); Hemoglobin 10.6 g/dL (14.1-18.0); Immature Granulocytes % 0.5 %; Mean Corpuscular HGB Conc 32.7 g/dL (31.8-35.4); Mean Corpuscular Hemoglobin 28.7 pg (27.0-31.2); Mean Corpuscular Volume 87.8 fl (80-94); Nucleated Red Blood Cells % 0 %; Platelet Count 405 K/mm3 (142-424); Red Blood Count 3.69 M/mm3 (4.60-6.20); Red Cell Distribution Width-SD 43.8 fL; White Blood Count 11.4 K/mm3 (4.8-10.8)
[2024-12-09 09:09] LABS: C-Reactive Protein 3.5 mg/L (0-4)
[2024-12-09] MEDS: ERTAPENEM SODIUM 1 GM in 0.9 % SODIUM CHLORIDE 50 ML IV (09:31)
[2024-12-09 09:58] LABS: Albumin Level 3.7 g/dl (3.5-5.0)
[2024-12-09 10:01] LABS: Alanine Aminotransferase 25 U/L (12-78); Aspartate Amino Transferase 24 U/L (17-59); Bilirubin,Direct 0.1 mg/dl (0.0-0.4); Bilirubin,Indirect 0.2 mg/dL (0.0-0.9); Bilirubin,Total 0.3 mg/dl (0.2-1.3); Bilirubin,Unconjugated 0.3 mg/dL (0.0-1.1); Blood Urea Nitrogen 37 mg/dl (9-20); Creatinine,Serum 0.80 mg/dl (0.66-1.25); Estimated Glomerular Filt Rate 97 ml/min (>60); GFR (African American) 117 ML/MIN (>60); Total Protein,Serum 6.5 g/dl (6.3-8.2)
[2024-12-09 10:02] LABS: Alkaline Phosphatase 143 U/L (38-126)
[2024-12-09 10:10] VITALS: BP 135/68; PULSE 72; RESP 14; TEMP 36.6; O2SAT 95
== END 2024-12-09 10:10 ==
LOC: INF 08:01
PROVIDERS: PCP Family Medicine
DX: Z51.81 Encounter for therapeutic drug level monitoring (principal); T14.8XXA Other injury of unspecified body region, initial encounter; T81.49XA Infection following a procedure, other surgical site, initial encounter; L08.9 Local infection of the skin and subcutaneous tissue, unspecified; B99.9 Unspecified infectious disease; X58.XXXA Exposure to other specified factors, initial encounter; Z79.2 Long term (current) use of antibiotics
CPT/HCPCS: 36592; 80076; 82565; 84520; 85025; 86140; 96365; 96367; J1335; J2248

== ENCOUNTER 2024-12-10 08:07 | Outpatient (CLI) | payer MEDICARE, OTHER, SELFPAY ==
[2024-12-10 08:38] VITALS: BP 133/65; PULSE 72; RESP 14; TEMP 36.4; O2SAT 97
[2024-12-10] MEDS: SODIUM CHLORIDE 0.9% 10ML FLUSH SYRINGE 10 ML IV (08:38)
[2024-12-10] MEDS: SODIUM CHLORIDE 0.9% IV (08:38)
[2024-12-10] MEDS: MICAFUNGIN SODIUM IV (08:38)
[2024-12-10] MEDS: ERTAPENEM SODIUM 1 GM in 0.9 % SODIUM CHLORIDE 50 ML IV (09:43)
[2024-12-10 10:16] VITALS: BP 138/72; PULSE 69; RESP 16; TEMP 36.4; O2SAT 96
== END 2024-12-10 10:20 | disposition home or self-care (01) ==
LOC: INF 08:09
PROVIDERS: PCP Family Medicine
DX: E10.69 Type 1 diabetes mellitus with other specified complication (principal); E78.2 Mixed hyperlipidemia
CPT/HCPCS: 96365; 96367; J1335; J2248

== ENCOUNTER 2024-12-11 07:59 | Outpatient (CLI) | payer MEDICARE, OTHER, SELFPAY ==
--- OUTSIDE RECORDS SUMMARY | 2024-10-17 06:21 | XMS_ITS | Encounter Summary ---
Author Organization [facility] Address [address] [id number] Care Team Providers Care Pick Up Attendant Name Role Phone Asad Victor MD Primary Care Provider [phone] Reason for Referral * Imaging (Routine) - Authorized Specialty Diagnoses / Procedures Referred By Susan t Referred To Contact Cardiology Diagnoses Critical limb ischemia of left lower extremity Pseudoaneurysm of left femoral artery (CMS/HCC) Procedures VAS US Arterial Duplex Lower Extremity Unilateral Left Terrell Gautam MD [address] [address] Phone: tel: fax: Referral ID Status Reason Start Date Expiration Date Visits Requested Visits Authorized [id number] Authorized Perform Procedure 10/19/2024 04/20/2026 1 1 * Imaging (Routine) - Authorized Specialty Diagnoses / Procedures Referred By Contac t Referred To Contact Cardiology Diagnoses Critical limb ischemia of left lower extremity Pseudoaneurysm of left femoral artery (CMS/HCC) Procedures VAS Ankle Brachial Index - Segmental Terrell Gautam MD [id number] [place] [address] Phone: tel: fax: Referral ID Status Reason Start Date Expiration Date Visits Requested Visits Authorized [id number] Authorized Perform Procedure 10/19/2024 04/20/2026 1 1 * Consultation (Routine) - Authorized Specialty Diagnoses / Procedures Referred By Contact Referred To Contact Vascular Surgery / [facility] Diagnoses Critical limb ischemia of left lower extremity Pseudoaneurysm of left femoral artery (CMS/HCC) Terrell Gautam MD [address] [place] [address] Phone: tel:[phone] fax:[phone] [facility] [address] [place] [address] 5th Floor [address], [address] [place] [address] Phone: tel: fax: Referral ID Status Reason Start Date Expiration Date Visits Requested Visits Authorized [id number] Authorized Specialty Services Required 10/19/2024 04/20/2026 [address] Gautam, with SIL, arterial duplex Reason for Visit * Auth/Cert (Routine) Specialty Diagnoses / Procedures Referred By Susan t Referred To Contact Diagnoses Critical limb ischemia of left lower extremity Critical limb ischemia of left lower extremity [I70.222] Procedures RI VEIN BYPASS GRAFT,FEM-POP CREATION, BYPASS, ARTERIAL, FEMORAL TO POPLITEAL Terrell Gautam MD [address] [place] [phone] Phone: tel: fax: [facility] A OPERATING ROOM [address] [place] [address] Phone: tel: Referral ID Status Reason Start Date Expiration Date Visits Re quested Visits Authorized [id number] 1 1 Encounter Details Date Type Department Care Team (Latest Contact Info) Description 10/17/2024 6:21 AM EDT - 10/19/2024 12:39 PM EDT Hospital Encounter [facility] H Inpatient [address] [place] [id number] Terrell Gautam MD [address] [place] [address] Pseudoaneurysm of left femoral artery (CMS/HCC) [...] were you homeless or living in a custodial (including now)? No 10/18/2024 CAGE ASSESSMENT Answer [...] drink first t dino in the morning (EYE-FITTER ARMAMENT) to steady your nerves or to get rid of a hangover? 0 10/18/2021 CAGE Questionnaire Score 0 022 Utilities Answer Date Recorded In the past 12 months has th [place], gas, oil, or water [employer] threatened to shut off services in your [...] provided Taken 10/17/20242107 by Jourdan Grimes II homemaking rehabilitation consultant Review/Management: medications reviewed Problem: Skin Injury Risk [...] Ongoing, Progressing Intervention: Promote Activity and Functional Riley Flowsheets (Taken 10/19/2024 1048) Self-Care Promotion: BADL personal objects within reach meal set-up provided * Yuni Ramires - Keyla Chow - 10/19/2024 11:45 AM EDT Images from the original note were not included. [id number] After Peripheral Artery Bypass Surgery: In the [...] home. Last Reviewed Date: 2023 00:00:00 ?? [id number] [employer]. All rights reserved. This information is not intended as a substitute for professional medical care. Always follow your healthcare professional's instructions. * Progress Notes - Emelina Friend - 10/19/2024 11:44 AM EDT Case Management Adult Progress Note Bev Bobby 64 y.o. male CSN: [id number] Admission: 10/17/2024 6:21 AM Primary Problem: Critical [...] if any other needs arise. Emelina Friend DENTAL SPECIALIST, ROUND CORNER CUTTER OPERATOR Social Work Case Management * Yuni OviJOSE MANUEL Chow Keyla - 10/19/2024 11:44 AM EDT Images from the original note were not included. [id number] Peripheral Artery Disease (PAD) Peripheral artery disease [...] cause. Last Reviewed Date: 2024 00:00:00 ?? [id number] [employer]. All rights reserved. This information is not intended as a substitute for professional medical care. Always follow your healthcare professional's instructions. * Yuni DiorNAVYA - Keyla Chow - 10/19/2024 11:44 AM EDT Images from the original note were not included. [id number] Leg Artery Emergencies: Critical Limb Ischemia (CLI) [...] appointments. Last Reviewed Date: 2023 00:00:00 ?? 2614-1950 [employer]. All rights reserved. This information is not intended as a substitute for professional medical care. Always follow your healthcare professional's instructions. * Discharge Summary - Dandy Baltazar MD - 10/19/2024 11:31 AM EDT Hospitalization Admit Date/Time: 10/17/2024 6:21 AM Admitting Attending: Terrell Gautam Discharge Date: 10/19/24 Discharge Attending Physician: Nirmal Cueto MD PCP name and Address: Asad Victor MD (Inactive) [address] [place] [address] / [facility] [address] Referring provider name and address: Timothy Marques PA [address] [place] [address] Chief Concern, Brief History of Present Illness, and Hospital Course Bev Bobby is an 64 y.o. 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 He [...] Your Medications These medications were sent to [facility] - [place], [place] - [address], [facility] [id number] acetaminophen 500 MG tablet clopidogrel 75 MG [...] of water. 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 He [...] provided Taken 10/17/20242107 by Jourdan Grimes II, homemaking rehabilitation consultant Review/Management: medications reviewed Problem: Skin Injury Risk [...] Ongoing, Progressing Intervention: Promote Activity and Functional Riley Flowsheets (Taken 10/19/2024 1048) Self-Care Promotion: BADL [...] evaluation. PARTICIPANTS IN CARE Visitors Present No Certified Alcohol Drug Counselor (if applicable) PRESENTATION Oxygen Oxygen Therapy: None [...] Level of Mobility Ambulatory- household only Mobility Riley Independent gait with device (rollator) History of [...] numbness in rodney) BED MOBILITY Level of Riley Physical/Non- physical Assist Adaptive Equipment Utilized Rolling/ Turning Scooting/ Bridging Modified independence (anteriorly to EOB) Bed rails Supine to Sit Modified Riley (to the right) (HOB flat) Bed rails Sit to Supine Interventions HOB flat to simulate home environment TRANSFERS Level of Riley Physical/Non- physical Assist Adaptive Equipment Utilized Sit [...] stable surfaces during transitions. AMBULATION Level of Riley Distance Adaptive Equipment Utilized Ambulation Standby assist, [...] Posture: Forward head, Rounded shoulders Level of Riley Balance Support Interventions Static Sit Independent Right [...] 3-5 steps with a railing?: A little [facility] 6-Clicks Mobility Assessment Total : 22 [...] evaluation/session. Participants in Care Family/Caregiver Present: No Certified Alcohol Drug Counselor: Not Applicable Presentation Oxygen Therapy: None (Room [...] Level of Mobility: Ambulatory- household only Mobility Riley: Independent gait with device (rollator) History of [...] Mobility Bed Mobility Exam: Scooting/Bridging Level of Riley: Modified independence (anteriorly to EOB) Assistive Device: Bed rails Bed Mobility Exam: Supine to Sit Level of Riley: Modified Riley (to the right) Physical/Nonphysical Assist: (HOB flat) Assistive Device: Bed rails Transfers Transfer Exam: Sit to stand Level of Riley: Stand-by assist Physical/Nonphysical Assist: Supervision, Verbal Cues, Minimal cues Assistive Device: Walker, rolling Transfer Exam: Stand to Sit Level of Riley: Stand-by assist Physical/Nonphysical Assist: Supervision, Verbal Cues, [...] regarding toileting at this time. Standardized Assessments [facility] 6-Click Daily Activities Help from Other: Don/Doff Regular Lower Body Clothings: None Help From Other: Bathing: Little Help From Other: Toileting: None Help From Other: Don/Doff Upper Body Clothings: None Help From Other: Grooming: None Help From Other: Eating Meals: None [facility] 6 Click - Daily Activities Score: 23/24 [facility] Scoring Interpretation: Scores greater than 20.5 [...] Note Bev Bobby 64 y.o. male CSN: [id number] Admission: 10/17/2024 6:21 AM Primary Problem: Critical limb ischemia of left lower extremity District Administrator reviewed chart and spoke with patient to complete this Initial Case Management Assessment. PCP: Asad Victor MD (Inactive) - Dr. Palomo Preferred pharmacy is [facility] Emergency Contact: Extended Emergency Contact Information Primary Emergency Contact: Patti Hill Relation: Sister Certified Alcohol Drug Counselor needed? No Insurance: Primary Visit Coverage Payer Plan Sponsor Code Group Number Group Name [facility] MEDICARE [facility] MEDICARE REPLACEMENT [id number] Primary Visit Coverage Subscriber Subscriber ID Subscriber Name Subscriber N Subscriber Address [id number] BEV BOBBY [id number] [place] [address] Secondary Visit Coverage Payer Plan Sponsor Code Group Number Group Name [facility] Secondary Visit Coverage Subscriber Subscriber ID Subscriber Name Subscriber N Subscriber Address [id number] BEV BOBBY [id number] [place] [address] Patient information: Primary Caregiver: Self Daily Living Activities: Functional Status: Independent Living Arrangements: Alone Type of Residence: Private residence, Single Level [address] [place] [address] Current DME: Equipment Currently Used at Home: walker, rollator Income Information: Income Source: Retired Income/Expense Information: Income meets expenses Current Resources Utilized: Food Matthews Housing Circumstances-Z Codes: Housing Circumstances (select all [...] Dialysis Services: None. Living Will/Advance Directive/Power of Motion Picture Projectionist Apprentice /Guardian: Denied. Additional Comments: Patient is not medically ready for discharge. SW will continue to follow. Mariia Macedo ROUND CORNER CUTTER OPERATOR * Care Plan - Emilia Alonso RN [...] from the original note were not included. [facility] Department of Surgery Division of [...] Agree with above assessment and evaluation from resident/INSTALLMENT AGENT. * Op Note - Terrell Gautam MD - 10/17/2024 8:52 AM EDT Operative Note Date: 10/17/24 Location: [facility] Name: Bev Bobby, : 1960, Diagnoses: Pre-op Diagnosis Critical limb ischemia of left lower extremity Common femoral artery pseudoaneurysm Post-op Diagnosis Critical limb ischemia of left lower extremity Common femoral artery pseudoaneurysm Procedure(s): Left common/superficial/profunda femoral thromboendarterectomy with bovine patch repair Left external iliac artery/FILLING HAULER stent Attending Surgeon(s): * Terrell Gautam - Primary Clinical Courier(s): * Luna Beckett MD - Resident - [...] Necessity Reasons Recent surgery contiguous with urinary tract/SPOOL MAKER/colorectal 10/17/24 190 Output (mL) 50 mL 10/18/24 08 Implants Type Name Action Serial No. VASCUGUARD 8 X 8 - [id number] Implanted STENT ENDOPROSTHESIS VIABAHN 9FR [id number] - [id number] Implanted [id number] Specimen: Specimens ID Source Frozen? 1 Other [...] and distal control. We then proceeded with vdxhi-yqy-zbwg exposure of the popliteal artery. A medial [...] balloon dilated thestent with a 9 mm [place]. We closed the arteriotomy with a single [...] 10/17/2024 8:52 AM EDT Date: 10/17/24 Location: [facility] Name: Bev Perez Kanu, : 1960, Diagnoses: Pre-op Diagnosis Critical limb ischemia of left lower extremity Common femoral artery pseudoaneurysm Post-op Diagnosis Critical limb ischemia of left lower extremity Common femoral artery pseudoaneurysm Procedure(s): Left common/superficial/profunda femoral thromboendarterectomy with bovine patch repair Left external iliac artery/FILLING HAULER stent Attending Surgeon(s): * Terrell Gautam - Primary Clinical Courier(s): * Luna Beckett MD - Resident - Assisting * Dandy Baltazar MD - Fellow Anesthesia: General ASA: III Blood Administration: Blood Product Administration History None Estimated Blood Loss: 300 mL Drains: Urethral Catheter Temperature probe 16 Fr. (Active) Implants Type Name Action Serial No. VASCUGUARD 8 X 8 - [id number] Implanted STENT ENDOPROSTHESIS VIABAHN 9FR [id number] - [id number] Implanted [id number] Specimen: Specimens ID Source Frozen? 1 Other [...] issues. 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 He previouslyunderwent thrombin injection. He reports pain in his calves. He presents today for scheduled left lower extremity femoral to tgamq-ces-hzyq popliteal bypass. Planned likely use PTFE. He [...] 16. Results Review {Vanishing Link Review Results :[id number] I have reviewed the latest lab and imaging results. Assessment & Plan Critical limb ischemia of left lower extremity Proceed with scheduled surgery left lower extremity femoral to gcazm-zwh-unzs popliteal artery bypass graft. Extensive discussion had [...] 2:00 PM EDT Office Visit [facility] [address] [place] [address] Oscar Appiah MD [address] [facility] [address] [place] [address] 12/19/2024 7:30 AM EDT Appointment [facility] [address] [facility] 5th Floor [address] [place] [address] 12/19/2024 8:00 AM EDT Appointment [facility] [address] [place] [address] 12/19/2024 9:00 AM EDT Office Visit [facility] [address] [place] [address] Nathaly Nowak MD [address] [place] [address] Pending Results Name Type Priority Associated Diagnoses [...] PREPARE RBC STAT 10/17/2024 8:06 AM EDT RI VEIN BYPASS GRAFT,FEM-POP 10/17/2024 7:38 AM EDT [...] Comment 10/19/2024 11:42 AM EDT HEALTHCARE LAB On Site Soil Evaluator ID KamranJob 10/20/19 11:42 AM EDT [facility] LAB Device ID [id number] 10/19/2024 11:42 AM EDT [facility] Specimen Type POC Capillary 10/19/2024 11:42 AM EDT [facility] Blood Capillary blood specimen / Unknown 10/19/2024 11:40 AM EDT 10/19/2024 11:42 AM EDT us Terrell Gautam MD LAB POINT OF CARE TE ST DOCKED DEVICE UNSOLICITED RESULTS Final Result Performing Organization Address City/State/[facility] Co de Phone Number HEALTHCARE LAB [address] [place] [address] * (ABNORMAL) Protime-INR (10/19/2024 8:25 AM EDT) Prothrombin Time 17.5(H) 12.0 - 14.3 sec LAB COAGULATION METHOD 10/19/2024 9:25 AM EDT [facility] INR 1.4(H) 0.9 - 1.1 LAB COAGULATION METHOD 10/19/2024 9:25 AM EDT [facility] Blood Venous blood specimen / Unknown Venipuncture / Unknown 10/19/2024 8:25 AM EDT 10/19/2024 8:43 AM EDT Narrative [facility] - 10/19/2024 9:25 AM [...] of recurrent OK INR 2.5 to 3.5 Nirmal Cueto MD LAB BLOOD ORDERABLES Final Result Performing Organization Address City/[facility]/ZIP Co de Phone Number [facility] [address] [place] [address] * (ABNORMAL) Phosphorus (10/19/2024 8:25 AM EDT) Phosphorus, Plasma 2.2(L) 2.5 - 4.5 mg/dL 10/19/2024 9:12 AM EDT [facility] Blood Venous blood specimen / Unknown Venipuncture / Unknown 10/19/2024 8:25 AM EDT 10/19/2024 8:43 AM EDT Nirmal Cueto MD LAB BLOOD ORDERABLES Final Result Performing Organization Address City/[facility]/ZIP Co de Phone Number [facility] [address] [place] [address] * Magnesium (10/19/2024 8:25 AM EDT) Magnesium, Plasma 2.1 1.9 - 2.4 mg/dL 10/19/2024 9:12 AM EDT [facility] Blood Venous blood specimen / Unknown Venipuncture / Unknown 10/19/2024 8:25 AM EDT 10/19/2024 8:43 AM EDT Nirmal Cueto MD LAB BLOOD ORDERABLES Final Result Performing Organization Address City/[facility]/ZIP Co de Phone Number [facility] [address] [place] [address] * (ABNORMAL) Basic metabolic panel (10/19/2024 8:25 AM EDT) Glucose, Plasma 191(H) 74 - 99 mg/dL 10/19/2024 9:12 AM EDT [facility] BUN, Plasma 18 8 - 23 mg/dL 10/19/2024 9:12 AM EDT [facility] Creatinine, Plasma 0.76 0.70 - 1.20 mg/dL 10/19/2024 9:12 AM EDT [facility] BUN/Creatinine Ratio 24 10/19/2024 9:12 AM EDT [facility] Sodium, Plasma 135(L) 136 - 145 mmol/L 10/19/2024 9:12 AM EDT [facility] Potassium, Plasma 4.1 3.6 - 4.9 mmol/L 10/19/2024 9:12 AM EDT [facility] Chloride, Plasma 104 97 - 107 mmol/L 10/19/2024 9:12 AM EDT [facility] CO2, Plasma 22 22 - 29 mmol/L 10/19/2024 9:12 AM EDT [facility] Anion Gap 9 6 - 16 mmol/L 10/19/2024 9:12 AM EDT [facility] Total Calcium, Plasma 8.4(L) 8.9 - 10.2 mg/dL 10/19/2024 9:12 AM EDT [facility] eGFRcr 99.7 mL/min/1.7 3m*2 10/19/2024 9:12 AM EDT [facility] Comment:Reported eGFRcr in m L/min/1.73m2 is based the CKD-EPI 2020 equation that does not use a race coefficient. Blood Venous blood specimen / Unknown Venipuncture / Unknown 10/19/2024 8:25 AM EDT 10/19/2024 8:43 AM EDT us Nirmal Cueto MD LAB BLOOD ORDERABLES Final Result [facility] [address] [place] [address] * (ABNORMAL) CBC W/O Differential (10/19/2024 8:25 AM EDT) WBC Count 14.10(H) 3.70 - 10.30 10*3/uL LAB HEMATOLOGY METHOD 10/19/2024 8:52 AM EDT [facility] RBC Count 2.61(L) 4.60 - 6.10 10*6/uL LAB HEMATOLOGY METHOD 10/19/2024 8:52 AM EDT [facility] HGB 8.0(L) 13.7 - 17.5 g/dL LAB HEMATOLOGY METHOD 10/19/2024 8:52 AM EDT [facility] HCT 24.3(L) 40.0 - 51.0 % LAB HEMATOLOGY METHOD 10/19/2024 8:52 AM EDT [facility] Platelet Count 318 155 - 369 10*3/uL LAB HEMATOLOGY METHOD 10/19/2024 8:52 AM EDT [facility] MCV 93 79 - 98 fL LAB HEMATOLOGY METHOD 10/19/2024 8:52 AM EDT [facility] MCH 30.7 26.0 - 32.0 pg LAB HEMATOLOGY METHOD 10/19/2024 8:52 AM EDT [facility] MCHC 32.9 30.7 - 35.5 g/dL LAB HEMATOLOGY METHOD 10/19/2024 8:52 AM EDT [facility] RDW 13.4 11.5 - 14.5 % LAB HEMATOLOGY METHOD 10/19/2024 8:52 AM EDT [facility] MPV 9.6 8.8 - 12.5 fL LAB HEMATOLOGY METHOD 10/19/2024 8:52 AM EDT [facility] nRBC 0.0 <=0.0 per 100 WBCs LAB HEMATOLOGY METHOD 10/19/2024 8:52 AM EDT [facility] Blood Venous blood specimen / Unknown Venipuncture / Unknown 10/19/2024 8:25 AM EDT 10/19/2024 8:44 AM EDT us Nirmal Cueto MD LAB BLOOD ORDERABLES Final Result [facility] [address] [place] [address] * (ABNORMAL) POCT glucose meter (10/19/2024 7:35 AM EDT) Pathologist [facility] POCT Glucose 187(H) 74 - 99 mg/dL [...] Comment 10/19/2024 7:37 AM EDT HEALTHCARE LAB On Site Soil Evaluator ID Job Andrew 10/20/19 7:37 AM EDT HEALTHCARE LAB Device ID [id number] 10/19/2024 7:37 AM EDT HEALTHCARE LAB Specimen Type POC Capillary 10/19/2024 7:37 AM EDT [facility]ALTH[facility]ARE LAB Blood Capillary blood specimen / Unknown 10/19/2024 7:35 AM EDT 10/19/2024 7:37 AM EDT us Terrell Gautam MD LAB POINT OF CARE TE ST DOCKED DEVICE UNSOLICITED RESULTS Final Result Performing Organization Address City/State/[facility] Co de Phone Number [facility] [address] [place] [address] * (ABNORMAL) POCT glucose meter (10/18/2024 7:22 PM EDT) [facility] POCT Glucose 178(H) 74 - 99 [...] 10/18/2024 7:24 PM EDT [facility] On Site Soil Evaluator ID Mahesh Aldana 10/18/2024 7:24 PM EDT [facility] Device ID [id number] 10/18/2024 7:24 PM EDT HEALTHCARE LAB Specimen Type POC Capillary 10/18/2024 7:24 PM EDT [facility] Blood Capillary blood specimen / Unknown 10/18/2024 7:22 PM EDT 10/18/2024 7:24 PM EDT Terrell Gautam MD LAB POINT OF CARE TE ST DOCKED DEVICE UNSOLICITED RESULTS Final Result Performing Organization Address City/[facility]/ZIP Co de Phone Number [facility]ALTHCARE LAB [address] [place] [address] * (ABNORMAL) POCT glucose meter (10/18/2024 6:07 [...] Comment 10/18/2024 6:09 PM EDT HEALTHCARE LAB On Site Soil Evaluator ID David Parks 10/18/2024 6:09 PM EDT [facility] Device ID [id number] 10/18/2024 6:09 PM EDT [facility] Specimen Type POC Capillary 10/18/2024 6:09 PM EDT [facility] Blood Capillary blood specimen / Unknown 10/18/2024 6:07 PM EDT 10/18/2024 6:09 PM EDT us Terrell Gautam MD LAB POINT OF CARE TE ST DOCKED DEVICE UNSOLICITED RESULTS Final Result [facility] [address] [place] [address] * (ABNORMAL) POCT glucose meter (10/18/2024 11:56 [...] Comment 10/21/2024 7:42 AM EDT HEALTHCARE LAB On Site Soil Evaluator ID Venessa Marcano 10/21/2024 7:42 AM EDT HEALTHCARE LAB Device ID [id number] 10/21/2024 7:42 AM EDT HEALTHCARE LAB Specimen Type POC Capillary 10/21/2024 7:42 AM EDT HEALTH[facility]ARE LAB Blood Capillary blood specimen / Unknown 10/18/2024 11:56 AM EDT 10/21/2024 7:42 AM EDT us Terrell Gautam MD LAB POINT OF CARE TE ST DOCKED DEVICE UNSOLICITED RESULTS Final Result Performing Organization Address City/State/[facility] de Phone Number HEALTHCARE LAB [address] [place] [address] * (ABNORMAL) POCT glucose meter (10/18/2024 9:24 [...] Comment 10/21/2024 7:42 AM EDT HEALTHCARE LAB On Site Soil Evaluator ID Emilia Alonso 7:42 AM EDT HEALTHCARE LAB Device ID [id number] 10/21/2024 7:42 AM EDT HEALTHCARE LAB Specimen Type POC Venous 10/21/2024 7:42 AM EDT [facility]ALTH[facility]ARE LAB Blood Venous blood specimen / Unknown 10/18/2024 9:24 AM EDT 10/21/2024 7:42 AM EDT us Terrell Gautam MD LAB POINT OF CARE TE ST DOCKED DEVICE UNSOLICITED RESULTS Final Result [facility] [address] [place] [address] * (ABNORMAL) POCT glucose meter (10/18/2024 7:36 AM EDT) [facility] POCT Glucose 215(H) 74 - 99 mg/dL [...] for testing. Comment 10/18/2024 7:38 AM EDT [facility] On Site Soil Evaluator ID Kizzy Godfrey 025 7:38 AM EDT HEALTHCARE LAB Device ID [id number] 10/18/2024 7:38 AM EDT [facility] Specimen Type POC Capillary 10/18/2024 7:38 AM EDT [facility] Blood Capillary blood specimen / Unknown 10/18/2024 7:36 AM EDT 10/18/2024 7:38 AM EDT Terrell Gautam MD LAB POINT OF CARE TE ST DOCKED DEVICE UNSOLICITED RESULTS Final Result [facility] [address] [place] [address] * (ABNORMAL) CBC (10/18/2024 2:09 AM EDT) [facility] WBC Count 16.71(H) 3.70 - 10.30 10*3/uL LAB HEMATOLOGY METHOD 10/18/2024 2:33 AM EDT [facility] RBC Count 2.78(L) 4.60 - 6.10 10*6/uL LAB HEMATOLOGY METHOD 10/18/2024 2:33 AM EDT [facility] HGB 8.5(L) 13.7 - 17.5 g/dL LAB HEMATOLOGY METHOD 10/18/2024 2:33 AM EDT [facility] HCT 25.7(L) 40.0 - 51.0 % LAB HEMATOLOGY METHOD 10/18/2024 2:33 AM EDT [facility] Platelet Count 324 155 - 369 10*3/uL LAB HEMATOLOGY METHOD 10/18/2024 2:33 AM EDT [facility] MCV 92 79 - 98 fL LAB HEMATOLOGY METHOD 10/18/2024 2:33 AM EDT [facility] MCH 30.6 26.0 - 32.0 pg LAB HEMATOLOGY METHOD 10/18/2024 2:33 AM EDT [facility] MCHC 33.1 30.7 - 35.5 g/dL LAB HEMATOLOGY METHOD 10/18/2024 2:33 AM EDT [facility] RDW 13.3 11.5 - 14.5 % LAB HEMATOLOGY METHOD 10/18/2024 2:33 AM EDT [facility] MPV 9.4 8.8 - 12.5 fL LAB HEMATOLOGY METHOD 10/18/2024 2:33 AM EDT [facility] nRBC 0.0 <=0.0 per 100 WBCs LAB HEMATOLOGY METHOD 10/18/2024 2:33 AM EDT [facility] Blood Venous blood specimen / Unknown Venipuncture / Unknown 10/18/2024 2:09 AM EDT 10/18/2024 2:25 AM EDT Nirmal Cueto MD LAB BLOOD ORDERABLES Final Result [facility] [address] [place] [address] * (ABNORMAL) Basic metabolic panel (10/18/2024 2:09 AM EDT) Pathologist [facility] Glucose, Plasma 206(H) 74 - 99 mg/dL 10/18/2024 2:53 AM EDT [facility] BUN, Plasma 24(H) 8 - 23 mg/dL 10/18/2024 2:53 AM EDT [facility] Creatinine, Plasma 1.17 0.70 - 1.20 mg/dL 10/18/2024 2:53 AM EDT [facility] BUN/Creatinine Ratio 21 10/18/2024 2:53 AM EDT [facility] Sodium, Plasma 136 136 - 145 mmol/L 10/18/2024 2:53 AM EDT [facility] Potassium, Plasma 4.8 3.6 - 4.9 mmol/L 10/18/2024 2:53 AM EDT [facility] Chloride, Plasma 104 97 - 107 mmol/L 10/18/2024 2:53 AM EDT [facility] CO2, Plasma 22 22 - 29 mmol/L 10/18/2024 2:53 AM EDT [facility] Anion Gap 10 6 - 16 mmol/L 10/18/2024 2:53 AM EDT [facility] Total Calcium, Plasma 8.5(L) 8.9 - 10.2 mg/dL 10/18/2024 2:53 AM EDT [facility] eGFRcr 69.2 mL/min/1.7 3m*2 10/18/2024 2:53 AM EDT [facility] Comment:Reported eGFRcr in m L/min/1.73m2 is based the CKD-EPI 2020 equation that does not use a race coefficient. Blood Venous blood specimen / Unknown Venipuncture / Unknown 10/18/2024 2:09 AM EDT 10/18/2024 2:25 AM EDT Nirmal Cueto MD LAB BLOOD ORDERABLES Final Result [facility] [address] [place] [address] * (ABNORMAL) Magnesium (10/18/2024 2:09 AM EDT) Magnesium, Plasma 1.8(L) 1.9 - 2.4 mg/dL 10/18/2024 2:53 AM EDT [facility] Blood Venous blood specimen / Unknown Venipuncture / Unknown 10/18/2024 2:09 AM EDT 10/18/2024 2:25 AM EDT Nirmal Cueto MD LAB BLOOD ORDERABLES Final Result [facility] [address] [place] [address] * Phosphorus (10/18/2024 2:09 AM EDT) Phosphorus, Plasma 3.7 2.5 - 4.5 mg/dL 10/18/2024 2:53 AM EDT [facility] Blood Venous blood specimen / Unknown Venipuncture / Unknown 10/18/2024 2:09 AM EDT 10/18/2024 2:25 AM EDT Nirmal Cueto MD LAB BLOOD ORDERABLES Final Result Performing Organization Address City/[facility]/ZIP Co de Phone Number [facility] [address] [place] [address] * (ABNORMAL) Protime-INR (10/18/2024 2:09 AM EDT) Prothrombin Time 14.5(H) 12.0 - 14.3 sec LAB COAGULATION METHOD 10/18/2024 2:53 AM EDT [facility] INR 1.1 0.9 - 1.1 LAB COAGULATION METHOD 10/18/2024 2:53 AM EDT [facility] Blood Venous blood specimen / Unknown Venipuncture / Unknown 10/18/2024 2:09 AM EDT 10/18/2024 2:25 AM EDT Narrative [facility] - 10/18/2024 2:53 AM [...] recurrent OK INR 2.5 to 3.5 us Nirmal Cueto MD LAB BLOOD ORDERABLES Final Result Performing Organization Address City/[facility]/ZIP Co de Phone Number [facility] [address] [place] [address] * (ABNORMAL) POCT glucose meter (10/18/2024 2:08 AM EDT) [facility] POCT Glucose 202(H) 74 - 99 [...] Comment 10/18/2024 2:10 AM EDT HEALTHCARE LAB On Site Soil Evaluator ID Jourdan Grimes II 10/18/2024 2:10 AM EDT HEALTHCARE LAB Device ID [id number] 10/18/2024 2:10 AM EDT [facility]ALTH[facility] LAB Specimen Type POC Capillary 10/18/2024 2:10 AM EDT [facility] LAB Blood Capillary blood specimen / Unknown 10/18/2024 2:08 AM EDT 10/18/2024 2:10 AM EDT us Terrell Gautam MD LAB POINT OF CARE TE ST DOCKED DEVICE UNSOLICITED RESULTS Final Result Performing Organization Address City/State/[facility] Co de Phone Number HEALTHCARE LAB [address] [place] [address] * (ABNORMAL) POCT glucose meter (10/17/2024 10:07 PM EDT) [facility] POCT Glucose 300(H) 74 - 99 [...] Comment 10/17/2024 10:10 PM EDT HEALTHCARE LAB On Site Soil Evaluator ID Jourdan Grimes II 10/17/2024 10:10 PM EDT HEALTHCARE LAB Device ID [id number] 10/17/2024 10:10 PM EDT [facility] Specimen Type POC Capillary 10/17/2024 10:10 PM EDT [facility]ALTH[facility]ARE LAB Blood Capillary blood specimen / Unknown 10/17/2024 10:07 PM EDT 10/17/2024 10:10 PM EDT Terrell Gautam MD LAB POINT OF CARE TE ST DOCKED DEVICE UNSOLICITED RESULTS Final Result Performing Organization Address City/[facility] de Phone Number HEALTHCARE LAB [address] [place] [address] * (ABNORMAL) POCT glucose meter (10/17/2024 8:07 [...] Comment 10/17/2024 8:10 PM EDT [facility]ALTHCARE LAB On Site Soil Evaluator ID Jourdan Grimes II 10/17/2024 8:10 PM EDT HEALTHCARE LAB Device ID [id number] 10/17/2024 8:10 PM EDT HEALTHCARE LAB Specimen Type POC Capillary 10/17/2024 8:10 PM EDT [facility] Blood Capillary blood specimen / Unknown 10/17/2024 8:07 PM EDT 10/17/2024 8:10 PM EDT Terrell Gautam MD LAB POINT OF CARE TE ST DOCKED DEVICE UNSOLICITED RESULTS Final Result Performing Organization Address City/[facility]/ZIP Co de Phone Number [facility] [address] [place] [address] * (ABNORMAL) POCT glucose meter (10/17/2024 4:01 [...] Comment 10/17/2024 4:03 PM EDT HEALTHCARE LAB On Site Soil Evaluator ID Keisha Waller 10/17/2024 4:03 PM EDT HEALTHCARE LAB Device ID [id number] 10/17/2024 4:03 PM EDT HEALTHCARE LAB Specimen Type POC Capillary 10/17/2024 4:03 PM EDT [facility]ALTH[facility]ARE LAB Blood Capillary blood specimen / Unknown 10/17/2024 4:01 PM EDT 10/17/2024 4:03 PM EDT us Terrell Gautam MD LAB POINT OF CARE TE ST DOCKED DEVICE UNSOLICITED RESULTS Final Result Performing Organization Address City/State/[facility] Co de Phone Number HEALTHCARE LAB [address] [place] [address] * (ABNORMAL) POCT glucose meter (10/17/2024 1:25 PM EDT) [facility] POCT Glucose 225(H) 74 - 99 [...] 10/17/2024 1:27 PM EDT [facility] On Site Soil Evaluator ID Kizzy Godfrey 025 1:27 PM EDT HEALTHCARE LAB Device ID [id number] 10/17/2024 1:27 PM EDT HEALTHCARE LAB Specimen Type POC Capillary 10/17/2024 1:27 PM EDT [facility] LAB Blood Capillary blood specimen / Unknown 10/17/2024 1:25 PM EDT 10/17/2024 1:27 PM EDT us Terrell Gautam MD LAB POINT OF CARE TE ST DOCKED DEVICE UNSOLICITED RESULTS Final Result Performing Organization Address City/[facility]/ZIP Co de Phone Number HEALTHCARE LAB [address] [place] [address] * [place] Less than 1 Hour Intraoperative (10/17/2024 1:18 PM EDT) Narrative IMAGING - 10/17/2024 2:05 PM EDT Images were obtained for surgical purposes. See Terrell Gautam's surgical note in the patient's chart for the findings. Terrell Gautam MD IMG FLUOROSCOPY PROCEDURES Fi nal Result Performing Organization Address [facility] Co de Phone Number IMAGING * POCT ACT (10/17/2024 12:23 PM EDT) ACT+ (HIGH RANGE) 211 68 - 600 Seconds 10/29/2024 7:28 AM EDT HEALTHCARE LAB On Site Soil Evaluator ID Donna Mcmillan 10/29/2024 7:28 AM EDT HEALTHCARE LAB ACT Device ID [id number] 10/29/2024 7:28 AM EDT HEALTHCARE LAB Comment 10/29/2024 7:28 AM EDT [facility] Comment: ACT performed by [...] UNSOLICITED RESULTS Final Result Performing Organization Address [facility] Co de Phone Number [facility] [address] [place], [place] [id number] [place] [address] LAB [address] [place] [address] * (ABNORMAL) Blood gas, arterial (10/17/2024 11:48 AM EDT) pH, Arterial 7.34 7.31 - 7.42 LAB HEMATOLOGY METHOD 10/17/2024 11:54 AM EDT [facility] pCO2, Arterial 41 32 - 45 mmHg LAB HEMATOLOGY METHOD 10/17/2024 11:54 AM EDT [facility] pO2, Arterial 202 >80 mmHg LAB HEMATOLOGY METHOD 10/17/2024 11:54 AM EDT [facility] SO2, Measured, Arterial 100(H) 94 - 98 % LAB HEMATOLOGY METHOD 10/17/2024 11:54 AM EDT [facility] Base Excess, Arterial -3.2(L) -2.0 - 3.0 mmol/L LAB HEMATOLOGY METHOD 10/17/2024 11:54 AM EDT [facility] Bicarbonate, Calculated, Arterial 22 22 - 26 mmol/L LAB HEMATOLOGY METHOD 10/17/2024 11:54 AM EDT [facility] Hematocrit, Whole Blood 28.6(L) 40.0 - 51.0 % LAB HEMATOLOGY METHOD 10/17/2024 11:54 AM EDT [facility] Sodium, Whole Blood 137 136 - 145 mmol/L LAB HEMATOLOGY METHOD 10/17/2024 11:54 AM EDT [facility] Potassium, Whole Blood 4.5 3.6 - 4.9 mmol/L LAB HEMATOLOGY METHOD 10/17/2024 11:54 AM EDT [facility] Chloride, Whole Blood 112(H) 97 - 107 mmol/L LAB HEMATOLOGY METHOD 10/17/2024 11:54 AM EDT [facility] Glucose, Whole Blood 201(H) 74 - 99 mg/dL LAB HEMATOLOGY METHOD 10/17/2024 11:54 AM EDT [facility] Ionized Calcium, Whole Blood 4.8 4.6 - 5.1 mg/dL LAB HEMATOLOGY METHOD 10/17/2024 11:54 AM EDT [facility] Lactate, Arterial, Whole Blood 2.3(H) 0.5 - 1.6 mmol/L LAB HEMATOLOGY METHOD 10/17/2024 11:54 AM EDT [facility] Blood Arterial blood specimen / Unknown Arterial Puncture / Unknown 10/17/2024 11:48 AM EDT 10/17/2024 11:53 AM EDT us Jenna Lopez CRNA LAB BLOOD ORDERABLES Final Re sult [facility] [address] [place] [address] * POCT ACT (10/17/2024 11:41 AM EDT) ACT+ (HIGH RANGE) 175 68 - 600 Seconds 10/29/2024 7:28 AM EDT HEALTHCARE LAB On Site Soil Evaluator ID Oneyda Alicea 10/29/2024 7:28 AM EDT HEALTHCARE LAB ACT Device ID [id number] 10/29/2024 7:28 AM EDT HEALTHCARE LAB Comment 10/29/2024 7:28 AM EDT [facility] Comment: ACT performed by [...] ST DOCKED DEVICE UNSOLICITED RESULTS Final Result [facility] [address] LAB [address] [place] [address] * POCT ACT (10/17/2024 11:11 AM EDT) ACT+ (HIGH RANGE) 252 68 - 600 Seconds 10/29/2024 7:28 AM EDT HEALTHCARE LAB On Site Soil Evaluator ID Donna Mcmillan 10/29/2024 7:28 AM EDT HEALTHCARE LAB ACT Device ID [id number] 10/29/2024 7:28 AM EDT HEALTHCARE LAB Comment 10/29/2024 7:28 AM EDT [facility] Comment: ACT performed by [...] DOCKED DEVICE UNSOLICITED RESULTS Final Result [facility] [address] LAB [address] [place] [address] * (ABNORMAL) Blood gas, arterial (10/17/2024 10:46 AM EDT) pH, Arterial 7.35 7.31 - 7.42 LAB HEMATOLOGY METHOD 10/17/2024 10:56 AM EDT [facility] pCO2, Arterial 42 32 - 45 mmHg LAB HEMATOLOGY METHOD 10/17/2024 10:56 AM EDT [facility] pO2, Arterial 161 >80 mmHg LAB HEMATOLOGY METHOD 10/17/2024 10:56 AM EDT [facility] SO2, Measured, Arterial 100(H) 94 - 98 % LAB HEMATOLOGY METHOD 10/17/2024 10:56 AM EDT [facility] Base Excess, Arterial -2.2(L) -2.0 - 3.0 mmol/L LAB HEMATOLOGY METHOD 10/17/2024 10:56 AM EDT [facility] Bicarbonate, Calculated, Arterial 23 22 - 26 mmol/L LAB HEMATOLOGY METHOD 10/17/2024 10:56 AM EDT [facility] Hematocrit, Whole Blood 29.9(L) 40.0 - 51.0 % LAB HEMATOLOGY METHOD 10/17/2024 10:56 AM EDT [facility] Sodium, Whole Blood 138 136 - 145 mmol/L LAB HEMATOLOGY METHOD 10/17/2024 10:56 AM EDT [facility] Potassium, Whole Blood 4.0 3.6 - 4.9 mmol/L LAB HEMATOLOGY METHOD 10/17/2024 10:56 AM EDT [facility] Chloride, Whole Blood 110(H) 97 - 107 mmol/L LAB HEMATOLOGY METHOD 10/17/2024 10:56 AM EDT [facility] Glucose, Whole Blood 174(H) 74 - 99 mg/dL LAB HEMATOLOGY METHOD 10/17/2024 10:56 AM EDT [facility] Ionized Calcium, Whole Blood 5.1 4.6 - 5.1 mg/dL LAB HEMATOLOGY METHOD 10/17/2024 10:56 AM EDT [facility] Lactate, Arterial, Whole Blood 1.4 0.5 - 1.6 mmol/L LAB HEMATOLOGY METHOD 10/17/2024 10:56 AM EDT [facility] Blood Arterial blood specimen / Unknown Arterial Puncture / Unknown 10/17/2024 10:46 AM EDT 10/17/2024 10:54 AM EDT us Jenna Lopez CRNA LAB BLOOD ORDERABLES Final Re sult [facility] [address] [place] [address] * POCT ACT (10/17/2024 10:37 AM EDT) ACT+ (HIGH RANGE) 206 68 - 600 Seconds 10/29/2024 7:28 AM EDT [facility] On Site Soil Evaluator ID Donna Mcmillan 10/29/2024 7:28 AM EDT [facility] ACT Device ID [id number] 10/29/2024 7:28 AM EDT [facility] Comment 10/29/2024 7:28 AM EDT [facility] Comment: ACT performed by [...] ST DOCKED DEVICE UNSOLICITED RESULTS Final Result [facility] [address] LAB [address] [place] [address] * Surgical Pathology Exam (10/17/2024 10:27 AM EDT) Case Report Surgical Pathology Case: [id number] Authorizing Provider: Terrell Gautam MD Collected: 10/17/2024 1027 Ordering Location: [facility] A OPERATING ROOM Received: 10/17/2024 1325 Pathologist: Haydee Osborne MD Specimen: Other (specify site), left common femoral plaque 10/21/2024 10:16 AM EDT [facility] Final Diagnosis A. LEFT COMMON FEMORAL PLAQUE, EXCISION: - CALCIFIED PLAQUE 10/21/2024 10:16 AM EDT [facility] at 1016 EDT Clinical Information Critical limb ischemia of left lower extremity [I70.222] 10/21/2024 10:16 AM EDT [facility] Gross Description A. LEFT COMMON FEMORAL PLAQUE Received in formalin labeled l eft common femoral plaque , is one aggregate of red-gabriel hard portions of plaque measuring 3.7 x 2.5 x 0.9 cm. The specimen is serially sectioned and operations support representative sections are submitted in cassette A1. Cold Time: <1m Kenia Aceves 10/21/2024 10:16 AM EDT [facility] Note: A resident was involved in the service. I attest I examined the relevant preparations for the specimens and confirmed the diagnosis or interpretation. 10/21/2024 10:16 AM EDT [facility] Tissue Topography unknown / Unknown 10/17/2024 10:27 AM EDT 10/17/2024 1:25 PM EDT Comment:Pre-op diagnosis: Critical limb ischemia of left lower extremity [I70.222] us Terrell Gautam MD LAB PATHOLOGY ORDERABLES Gwen grimaldo Result [facility] [address] [place] [address] * POCT ACT (10/17/2024 10:03 AM EDT) ACT+ (HIGH RANGE) 244 68 - 600 Seconds 10/29/2024 7:28 AM EDT HEALTHCARE LAB On Site Soil Evaluator ID Donna Mcmillan Maya 10/29/2024 7:28 AM EDT HEALTHCARE LAB ACT Device ID [id number] 10/29/2024 7:28 AM EDT [facility] Comment 10/29/2024 7:28 AM EDT [facility] Comment: ACT performed by [...] ST DOCKED DEVICE UNSOLICITED RESULTS Final Result [facility] [address] [address] * (ABNORMAL) Blood gas, arterial (10/17/2024 9:45 AM EDT) pH, Arterial 7.37 7.31 - 7.42 LAB HEMATOLOGY METHOD 10/17/2024 9:55 AM EDT [facility] pCO2, Arterial 43 32 - 45 mmHg LAB HEMATOLOGY METHOD 10/17/2024 9:55 AM EDT [facility] pO2, Arterial 177 >80 mmHg LAB HEMATOLOGY METHOD 10/17/2024 9:55 AM EDT [facility] SO2, Measured, Arterial 100(H) 94 - 98 % LAB HEMATOLOGY METHOD 10/17/2024 9:55 AM EDT [facility] Base Excess, Arterial -0.5 -2.0 - 3.0 mmol/L LAB HEMATOLOGY METHOD 10/17/2024 9:55 AM EDT [facility] Bicarbonate, Calculated, Arterial 25 22 - 26 mmol/L LAB HEMATOLOGY METHOD 10/17/2024 9:55 AM EDT [facility] Hematocrit, Whole Blood 30.0(L) 40.0 - 51.0 % LAB HEMATOLOGY METHOD 10/17/2024 9:55 AM EDT [facility] Sodium, Whole Blood 137 136 - 145 mmol/L LAB HEMATOLOGY METHOD 10/17/2024 9:55 AM EDT [facility] Potassium, Whole Blood 4.3 3.6 - 4.9 mmol/L LAB HEMATOLOGY METHOD 10/17/2024 9:55 AM EDT [facility] Chloride, Whole Blood 108(H) 97 - 107 mmol/L LAB HEMATOLOGY METHOD 10/17/2024 9:55 AM EDT [facility] Glucose, Whole Blood 191(H) 74 - 99 mg/dL LAB HEMATOLOGY METHOD 10/17/2024 9:55 AM EDT [facility] Ionized Calcium, Whole Blood 5.0 4.6 - 5.1 mg/dL LAB HEMATOLOGY METHOD 10/17/2024 9:55 AM EDT [facility] Lactate, Arterial, Whole Blood 1.3 0.5 - 1.6 mmol/L LAB HEMATOLOGY METHOD 10/17/2024 9:55 AM EDT [facility] Blood Arterial blood specimen / Unknown Arterial Line / Unknown 10/17/2024 9:45 AM EDT 10/17/2024 9:52 AM EDT Jenna Lopez CRNA LAB BLOOD ORDERABLES Final Re sult [facility] [address] [place] [address] * (ABNORMAL) Blood gas, arterial (10/17/2024 8:47 AM EDT) pH, Arterial 7.37 7.31 - 7.42 LAB HEMATOLOGY METHOD 10/17/2024 8:59 AM EDT [facility] pCO2, Arterial 43 32 - 45 mmHg LAB HEMATOLOGY METHOD 10/17/2024 8:59 AM EDT [facility] pO2, Arterial 205 >80 mmHg LAB HEMATOLOGY METHOD 10/17/2024 8:59 AM EDT [facility] SO2, Measured, Arterial 100(H) 94 - 98 % LAB HEMATOLOGY METHOD 10/17/2024 8:59 AM EDT [facility] Base Excess, Arterial -0.3 -2.0 - 3.0 mmol/L LAB HEMATOLOGY METHOD 10/17/2024 8:59 AM EDT [facility] Bicarbonate, Calculated, Arterial 25 22 - 26 mmol/L LAB HEMATOLOGY METHOD 10/17/2024 8:59 AM EDT [facility] Hematocrit, Whole Blood 31.3(L) 40.0 - 51.0 % LAB HEMATOLOGY METHOD 10/17/2024 8:59 AM EDT [facility] Sodium, Whole Blood 138 136 - 145 mmol/L LAB HEMATOLOGY METHOD 10/17/2024 8:59 AM EDT [facility] Potassium, Whole Blood 4.0 3.6 - 4.9 mmol/L LAB HEMATOLOGY METHOD 10/17/2024 8:59 AM EDT [facility] Chloride, Whole Blood 108(H) 97 - 107 mmol/L LAB HEMATOLOGY METHOD 10/17/2024 8:59 AM EDT [facility] Glucose, Whole Blood 162(H) 74 - 99 mg/dL LAB HEMATOLOGY METHOD 10/17/2024 8:59 AM EDT [facility] Ionized Calcium, Whole Blood 5.2(H) 4.6 - 5.1 mg/dL LAB HEMATOLOGY METHOD 10/17/2024 8:59 AM EDT [facility] Lactate, Arterial, Whole Blood 1.7(H) 0.5 - 1.6 mmol/L LAB HEMATOLOGY METHOD 10/17/2024 8:59 AM EDT [facility] Blood Arterial blood specimen / Unknown Arterial Puncture / Unknown 10/17/2024 8:47 AM EDT 10/17/2024 8:58 AM EDT us Jenna Lopez [facility] BLOOD ORDERABLES Final Re sult [facility] [address] [place] [address] * POCT ACT (10/17/2024 8:46 AM EDT) ACT+ (HIGH RANGE) 101 68 - 600 Seconds 10/29/2024 7:28 AM EDT HEALTHCARE LAB On Site Soil Evaluator ID Donna Mcmillan Maya 10/29/2024 7:28 AM EDT HEALTHCARE LAB ACT Device ID [id number] 10/29/2024 7:28 AM EDT HEALTHCARE LAB Comment 10/29/2024 7:28 AM EDT [facility] Comment: ACT performed by [...] UNSOLICITED RESULTS Final Result Performing Organization Address [facility] Co de Phone Number HEALTHCARE LAB [address] LAB [address] [place] [address] * Type and Screen (10/17/2024 7:19 AM EDT) Pathologist [facility] ABO/Rh A Negative 10/17/2024 7:04 AM EDT BLOOD BANK Antibody Screen Negative 10/17/2024 7:04 AM EDT BLOOD BANK Specimen Expiration 10/20/2024 23:59 10/17/2024 7:04 AM EDT BLOOD BANK Blood Venous blood specimen / Unknown Venipuncture / Unknown 10/17/2024 7:19 AM EDT 10/17/2024 7:28 AM EDT us Maria Fernanda Mccallum MD LAB BLOOD BANK TEST ORDERAB LES Final Result Performing Organization Address [facility] de Phone Number BLOOD BANK [address] [place] [address] * (ABNORMAL) POCT glucose meter (10/17/2024 6:44 AM EDT) [facility] POCT Glucose 178(H) 74 - 99 [...] 10/17/2024 6:49 AM EDT [facility] On Site Soil Evaluator ID Hunter Burroughs 10/18/19 6:49 AM EDT [facility] Device ID [id number] 10/17/2024 6:49 AM EDT HEALTHCARE LAB Specimen Type POC Capillary 10/17/2024 6:49 AM EDT HEALTHCARE LAB Blood Capillary blood specimen / Unknown 10/17/2024 6:44 AM EDT 10/17/2024 6:49 AM EDT Terrell Gautam MD LAB POINT OF CARE TE ST DOCKED DEVICE UNSOLICITED RESULTS Final Result [facility]ARE LAB [address] [place] [address] documented in this encounter Visit Diagnoses Diagnosis [...] II, RN) 0801 (Given - Provider: Emilia Alonso, CHRISTIAN)2001 [...] patient not ate meal and request to wait.)181 (Canceled Entry - Provider: Keyla Chow) 0830 [...] documented as of this encounter Care Teams Pick Up Attendant Relationship Specialty Start Date End Date Asad Victor MD [address] [place] [id number] PCP - General 10/07/22 documented as of this encounter
--- OUTSIDE RECORDS SUMMARY | 2024-10-17 07:51 | XMS_ITS | Encounter Summary ---
Author Organization [facility] Address [address] [id number] Care Team Providers Care Architectural Wood Model Maker Name Role Phone Asad Victor MD Primary Care Provider + [phone] Reason for Visit * Auth/Cert (Routine) Specialty Diagnoses / Procedures Referred By Contac t Referred To Contact Diagnoses Critical limb ischemia of left lower extremity Critical limb ischemia of left lower extremity [I70.222] Procedures [place] VEIN BYPASS GRAFT,FEM-POP CREATION, BYPASS, ARTERIAL, FEMORAL TO POPLITEAL Terrell Gautam MD [address] [facility] [address] [place] [address] Phone: tel: fax: PAV A OPERATING ROOM [address] [place] [address] Phone: tel: Referral ID Status Reason Start Date Expiration Date Visits Re quested Visits Authorized [id number] 1 1 Encounter Details Date Type Department Care Team (Late st Contact Info) Description 10/17/2024 7:51 AM EDT Anesthesia Event PAV A OPERATING ROOM [address] [place] [phone] Maria Fernanda Mccallum MD [address] [place] [address] Anesthesia Record Procedure Summary Procedure [...] Hand; Site Prep: Chlorhexidine ; Local Anesth: [place]; Technique: Anatomical landmarks; Inserted by: CHRISTIAN Acuna; [...] Jenna Lopez CRNA 10/17/24 1311 by Jenna Lopze CRNA Urethral Catheter Placement Date: 09/25 07/19; [...] None; Technique: Ultrasound guidance; Inserted by: Maria Fernnada Mccallum MD; Insertion Attempts: 1; Removal Date: [...] time in the past 12 m [facility], were you homeless or living in a [...] drink first t dino in the morning (EYE-LITHOGRAPHER HELPER) to steady your nerves or to get [...] * Anesthesia Postprocedure Evaluation - Jenna Lopez, HUMAN GEOGRAPHY INSTRUCTOR - 10/17/2024 1:29 PM EDT Patient: Mono [...] by Swetha Villareal MD Staffing Performed: ISH HUMAN GEOGRAPHY INSTRUCTOR: Jenna Lopez CRNA * Anesthesia Procedure Notes - Jenna Lopez CRNA - 10/17/2024 9:00 AM EDT Associated Order(s): Airway Airway Date/Time: 10/17/2024 8:03 AM Reason: elective Airway not difficult General Information and Staff Patient location during procedure: OR HUMAN GEOGRAPHY INSTRUCTOR: Jenna Lopez CRNA Performed: HUMAN GEOGRAPHY INSTRUCTOR Patient Condition Indications for airway management: anesthesia [...] note 09/25/24 (media) + CAD s/p multiple MO's and 3V CABG 02/2019, 2 stents prior to CABG Atrial Fibrillation with RVR s/p CABG + carotid artery disease s/p R CEA 2016 + 3rd degree AV block CREDIT REVIEW OFFICER-P placed 08/2023 for Wenkeback with 11 sec pause + HLD + HTN - controlled + PAD 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 CORONARY ANGIOPLASTY Left Coronary Angiography With Concomitant Left Heart Catheterization from [facility] ??? CORONARY ARTERY BYPASS GRAFT N/A 2018 [...] Description 12/13/2024 2:00 PM EDT Office Visit [facility] [address] [place] [address] Oscar Appiah MD [address] [facility] [address] [place] [address] 12/19/2024 7:30 AM EDT Appointment [facility] [address] [place] [address] 12/19/2024 8:00 AM EDT Appointment [facility] [address] [place] [address] [address] [place] [address] 12/19/2024 9:00 AM EDT Office Visit [facility] [address] [place] [address] [address] [place] [address] Nathaly Nowak MD [address] [place] [address] [address] [place] [address] documented as of this encounter Goals Goal [...] Performed by Swetha Villareal MD Staffing Performed: HUMAN GEOGRAPHY INSTRUCTOR HUMAN GEOGRAPHY INSTRUCTOR: Jenna Lopez CRNA Maria Fernanda Mccallum MD ANESTHESIA ORDERABLES Edite d Result - Final * [facility] AN ELECTIVE ENDOTRACHEAL AIRWAY, PB ANESTHESIA PLACEHOLDER (10/17/2024 8:03 AM EDT) Narrative Jenna Lopez CRNA - 10/17/2024 8:03 AM EDT Jenna Lopez CRNA 10/17/2024 9:00 AM Airway Date/Time: 10/17/2024 8:03 AM Reason: elective Airway not difficult General Information and Staff Patient location during procedure: OR HUMAN GEOGRAPHY INSTRUCTOR: Jenna Lopez CRNA Performed: ISH Patient Condition [...] Mccallum MD ANESTHESIA ORDERABLES Final Result * [facility] AN POCUS CARDIAC PROCDOC (10/17/2024 7:18 AM [...] Trace AR. The images were Saved in [email or web address]. The study was technically adequate. Comments: I [...] documented as of this encounter Care Teams Architectural Wood Model Maker Relationship Specialty Start Date End Date Asad Victor MD [address] [place] [address] PCP - General 10/07/22 documented as of this encounter
--- OUTSIDE RECORDS SUMMARY | 2024-11-05 21:45 | XMS_ITS | Encounter Summary ---
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 Nowak MD LAB POINT OF CARE TE ST DOCKED DEVICE UNSOLICITED RESULTS Final Result Performing Organization Address City/State/[facility] de Phone Number [facility]ARE [facility] [address] [place] [address] * (ABNORMAL) POCT glucose meter (11/13/2024 5:16 PM EDT) [facility] POCT Glucose 149(H) 74 - 99 mg/dL [...] Comment 11/13/2024 5:17 PM EDT [facility] Chemical Processor ID Estefani Sheth 11/13/2024 5:17 PM EDT [facility] Device ID [id number] 11/13/2024 5:17 PM EDT [facility] Specimen Type POC Capillary 11/13/2024 5:17 PM EDT [facility] Blood Capillary blood specimen / Unknown 11/13/2024 5:16 PM EDT 11/13/2024 5:17 PM EDT Nathaly Nowak MD LAB POINT OF CARE TE ST DOCKED DEVICE UNSOLICITED RESULTS Final Result [facility] [address] [place] [address] * IN NEGATIVE PRESSURE WOUND THERAPY DME </= 50 [...] of procedure: Tolerated well, no immediate complications us Nathaly Nowak MD IN CLINIC/BEDSIDE ORDERABLES Fi nal Result * (ABNORMAL) POCT glucose meter (11/13/2024 11:58 AM EDT) [facility] POCT Glucose 146(H) 74 - 99 mg/dL [...] for testing. Comment 11/13/2024 12:00 PM EDT [facility] Chemical Processor ID Estefani Sheth 11/13/2024 12:00 PM EDT [facility] Device ID [id number] 11/13/2024 12:00 PM EDT [facility] Specimen Type POC Capillary 11/13/2024 12:00 PM EDT [facility] Blood Capillary blood specimen / Unknown 11/13/2024 11:58 AM EDT 11/13/2024 12:00 PM EDT us Nathaly Nowak MD LAB POINT OF CARE TE ST DOCKED DEVICE UNSOLICITED RESULTS Final Result Performing Organization Address [facility] de Phone Number [facility] [address] [place] [address] * (ABNORMAL) POCT glucose meter (11/13/2024 8:23 AM EDT) POCT Glucose 195(H) 74 - 99 mg/dL 11/13/2024 8:24 AM EDT [facility] Comment:Accuracy of a [...] for testing. Comment 11/13/2024 8:24 AM EDT [facility] Chemical Processor ID Estefani Sheth 11/13/2024 8:24 AM EDT [facility] Device ID [id number] 11/13/2024 8:24 AM EDT [facility] Specimen Type POC Capillary 11/13/2024 8:24 AM EDT [facility] Blood Capillary blood specimen / Unknown 11/13/2024 8:23 AM EDT 11/13/2024 8:24 AM EDT Nathaly Nowak MD LAB POINT OF CARE TE ST DOCKED DEVICE UNSOLICITED RESULTS Final Result Performing Organization Address [facility] de Phone Number [facility] [address] [place] [address] * (ABNORMAL) Phosphorus, Plasma (11/13/2024 6:37 AM EDT) Phosphorus, Plasma 1.7(L) 2.5 - 4.5 mg/dL 11/13/2024 7:16 AM EDT [facility] Blood Venous blood specimen / Unknown Venipuncture / Unknown 11/13/2024 6:37 AM EDT 11/13/2024 6:44 AM EDT Nathaly Nowak MD LAB BLOOD ORDERABLES Final Resu lt [facility] [address] [place] [address] * Magnesium, Plasma (11/13/2024 6:37 AM EDT) Magnesium, Plasma 2.0 1.9 - 2.4 mg/dL 11/13/2024 7:16 AM EDT [facility] Blood Venous blood specimen / Unknown Venipuncture / Unknown 11/13/2024 6:37 AM EDT 11/13/2024 6:44 AM EDT us Nathaly Nowak MD LAB BLOOD ORDERABLES Final Resu lt [facility] [address] [place] [address] * (ABNORMAL) CBC W/O Differential (11/13/2024 6:37 AM EDT) WBC Count 11.72(H) 3.70 - 10.30 10*3/uL LAB HEMATOLOGY METHOD 11/13/2024 6:51 AM EDT [facility] RBC Count 2.88(L) 4.60 - 6.10 10*6/uL LAB HEMATOLOGY METHOD 11/13/2024 6:51 AM EDT [facility] HGB 8.5(L) 13.7 - 17.5 g/dL LAB HEMATOLOGY METHOD 11/13/2024 6:51 AM EDT [facility] HCT 26.4(L) 40.0 - 51.0 % LAB HEMATOLOGY METHOD 11/13/2024 6:51 AM EDT [facility] Platelet Count 398(H) 155 - 369 10*3/uL LAB HEMATOLOGY METHOD 11/13/2024 6:51 AM EDT [facility] MCV 92 79 - 98 fL LAB HEMATOLOGY METHOD 11/13/2024 6:51 AM EDT [facility] MCH 29.5 26.0 - 32.0 pg LAB HEMATOLOGY METHOD 11/13/2024 6:51 AM EDT [facility] MCHC 32.2 30.7 - 35.5 g/dL LAB HEMATOLOGY METHOD 11/13/2024 6:51 AM EDT [facility] RDW 13.6 11.5 - 14.5 % LAB HEMATOLOGY METHOD 11/13/2024 6:51 AM EDT [facility] MPV 8.9 8.8 - 12.5 fL LAB HEMATOLOGY METHOD 11/13/2024 6:51 AM EDT [facility] nRBC 0.0 <=0.0 per 100 WBCs LAB HEMATOLOGY METHOD 11/13/2024 6:51 AM EDT [facility] Blood Venous blood specimen / Unknown Venipuncture / Unknown 11/13/2024 6:37 AM EDT 11/13/2024 6:44 AM EDT us Nathaly Nowak MD LAB BLOOD ORDERABLES Final Resu lt [facility] [address] [place] [address] * (ABNORMAL) Basic Metabolic Panel, Plasma (11/13/2024 6:37 AM EDT) Glucose, Plasma 200(H) 74 - 99 mg/dL 11/13/2024 7:16 AM EDT [facility] BUN, Plasma 10 8 - 23 mg/dL 11/13/2024 7:16 AM EDT [facility] Creatinine, Plasma 0.68(L) 0.70 - 1.20 mg/dL 11/13/2024 7:16 AM EDT [facility] BUN/Creatinine Ratio 15 11/13/2024 7:16 AM EDT [facility] Sodium, Plasma 135(L) 136 - 145 mmol/L 11/13/2024 7:16 AM EDT [facility] Potassium, Plasma 3.9 3.6 - 4.9 mmol/L 11/13/2024 7:16 AM EDT [facility] Chloride, Plasma 107 97 - 107 mmol/L 11/13/2024 7:16 AM EDT [facility] CO2, Plasma 21(L) 22 - 29 mmol/L 11/13/2024 7:16 AM EDT [facility] Anion Gap 7 6 - 16 mmol/L 11/13/2024 7:16 AM EDT [facility] Total Calcium, Plasma 8.1(L) 8.9 - 10.2 mg/dL 11/13/2024 7:16 AM EDT [facility] eGFRcr 103.2 mL/min/1.7 3m*2 11/13/2024 7:16 AM EDT [facility] Comment:Reported eGFRcr in m L/min/1.73m2 is based the CKD-EPI 2020 equation that does not use a race coefficient. Blood Venous blood specimen / Unknown Venipuncture / Unknown 11/13/2024 6:37 AM EDT 11/13/2024 6:44 AM EDT us Nathaly Nowak MD LAB BLOOD ORDERABLES Final Resu lt Performing Organization Address City/[facility] Co de Phone Number [facility] [address] [place] [address] * (ABNORMAL) POCT glucose meter (11/12/2024 8:27 [...] Comment 11/12/2024 8:29 PM EDT [facility] Chemical Processor ID Nelda Gerber 11/13/19 8:29 PM EDT [facility] Device ID [id number] 11/12/2024 8:29 PM EDT [facility] Specimen Type POC Capillary 11/12/2024 8:29 PM EDT [facility] Blood Capillary blood specimen / Unknown 11/12/2024 8:27 PM EDT 11/12/2024 8:29 PM EDT us Nathaly Nowak MD LAB POINT OF CARE TE ST DOCKED DEVICE UNSOLICITED RESULTS Final Result Performing Organization Address City/[facility]/ZIP Co de Phone Number [facility] [address] [place] [address] * (ABNORMAL) POCT glucose meter (11/12/2024 5:08 PM EDT) [facility] POCT Glucose 157(H) 74 - 99 mg/dL [...] 11/12/2024 5:10 PM EDT [facility] Chemical Processor ID Wade Feliciano 5:10 PM EDT [facility] Device ID [id number] 11/12/2024 5:10 PM EDT [facility] Specimen Type POC Capillary 11/12/2024 5:10 PM EDT [facility] Blood Capillary blood specimen / Unknown 11/12/2024 5:08 PM EDT 11/12/2024 5:10 PM EDT us Nathaly Nowak MD LAB POINT OF CARE TE ST DOCKED DEVICE UNSOLICITED RESULTS Final Result [facility] [address] [place] [address] * (ABNORMAL) POCT glucose meter (11/12/2024 12:36 PM EDT) [facility] POCT Glucose 224(H) 74 - 99 mg/dL [...] 11/12/2024 12:38 PM EDT [facility] Chemical Processor ID Wade Feliciano 12:38 PM EDT [facility] Device ID [id number] 11/12/2024 12:38 PM EDT [facility] Specimen Type POC Capillary 11/12/2024 12:38 PM EDT [facility] Blood Capillary blood specimen / Unknown 11/12/2024 12:36 PM EDT 11/12/2024 12:38 PM EDT Nathaly Nowak MD LAB POINT OF CARE TE ST DOCKED DEVICE UNSOLICITED RESULTS Final Result [facility] [address] [place] [id number] * Clostridiodes (Clostridium) difficile PCR (11/12/2024 9:50 AM EDT) C difficile PCR toxin B gene DNA Result Not Detected Not Detected 11/12/2024 11:[address] [facility] Stool Rectum structure / Unknown Non-blood Collection / Unknown 11/12/2024 9:50 AM EDT 11/12/2024 10:04 AM EDT Narrative [facility] - 11/12/2024 11:54 AM EDT This [...] Nowak MD LAB [facility] - [facility] Final Result [facility] [address] [place], [place] [id number] * Comprehensive GI Panel by PCR (11/12/2024 9:50 AM EDT) Campylobacter PCR Result Not Detected Not Detected 11/12/2024 2:47 PM EDT [facility] Plesiomonas shigelloides PCR Result Not Detected Not Detected 11/12/2024 2:47 PM EDT [facility] Salmonella PCR Result Not Detected Not Detected 11/12/2024 2:47 PM EDT [facility] Vibrio species PCR Result Not Detected Not Detected 11/12/2024 2:47 PM EDT [facility] Vibrio cholerae PCR Result Not Detected Not Detected 11/12/2024 2:47 PM EDT [facility] Yersinia enterocolitica PCR Result Not Detected Not Detected 11/12/2024 2:47 PM EDT [facility] Enteroaggregative E. coli (EAEC) PCR Result Not Detected Not Detected 11/12/2024 2:47 PM EDT [facility] Enteropathogenic E. coli (EPEC) PCR Result Not Detected Not Detected 11/12/2024 2:47 PM EDT [facility] Enterotoxigenic E. coli (ETEC) lt/st PCR Result Not Detected Not Detected 11/12/2024 2:47 PM EDT [facility] Shiga-like Toxin-Producing E.coli (STEC) stx1/stx2 PCR Resu Not Detected Not Detected 11/12/2024 2:47 PM EDT [facility] E coli 0157 PCR Result Not Detected Not Detected 11/12/2024 2:47 PM EDT [facility] Shigella/Enteroinvas tam E. coli (EIEC) PCR Result Not Detected Not Detected 11/12/2024 2:47 PM EDT [facility] Cryptosporidium PCR Result Not Detected Not Detected 11/12/2024 2:47 PM EDT [facility] Cyclospora cayetanensis PCR Result Not Detected Not Detected 11/12/2024 2:47 PM EDT [facility] Entamoeba histolytica PCR Result Not Detected Not Detected 11/12/2024 2:47 PM EDT [facility] Giardia duodenalis (aka Giardia lamblia) PCR Result Not Detected Not Detected 11/12/2024 2:47 PM EDT [facility] Adenovirus F 40/41 PCR Result Not Detected Not Detected 11/12/2024 2:47 PM EDT [facility] Astrovirus PCR Result Not Detected Not Detected 11/12/2024 2:47 PM EDT [facility] Norovirus GI/GII PCR Result Not Detected Not Detected 11/12/2024 2:47 PM EDT [facility] Rotavirus A PCR Result Not Detected Not Detected 11/12/2024 2:47 PM EDT [facility] Sapovirus PCR Result Not Detected Not Detected 11/12/2024 2:[address] [facility] Stool Rectum structure / Unknown Non-blood Collection / Unknown 11/12/2024 9:50 AM EDT 11/12/2024 10:04 AM EDT Narrative [facility] - 11/12/2024 2:47 PM EDT This [...] indicated. Nathaly Nowak MD LAB MICROBIOLOGY - [facility] Final Result Performing Organization Address City/[facility]/ZIP Co de Phone Number [facility] [address] [place] [address] * C-reactive protein (11/12/2024 9:48 AM EDT) CRP, Plasma <3.0 <=8.0 mg/L 11/12/2024 10:28 AM EDT [facility] Blood Venous blood specimen / Unknown Venipuncture / Unknown 11/12/2024 9:48 AM EDT 11/12/2024 9:59 AM EDT Narrative [facility] - 11/12/2024 10:28 AM EDT This CRP test is appropriate for assessment of infection, systemic inflammation and/or tissue injury. To assess cardiovascular disease risk order high sensitivity CRP (CRPH). Nathaly Nowak MD LAB BLOOD ORDERABLES Final Resu lt [facility] [address] [place] [address] * (ABNORMAL) POCT glucose meter (11/12/2024 8:20 AM EDT) [facility] POCT Glucose 138(H) 74 - 99 mg/dL 11/12/2024 8:21 AM EDT [facility] Comment:Accuracy of [...] Comment 11/12/2024 8:21 AM EDT [facility] Chemical Processor ID Wade Feliciano 8:21 AM EDT [facility] Device ID [id number] 11/12/2024 8:21 AM EDT [facility] Specimen Type POC Capillary 11/12/2024 8:21 AM EDT [facility] Blood Capillary blood specimen / Unknown 11/12/2024 8:20 AM EDT 11/12/2024 8:21 AM EDT Nathaly Nowak MD LAB POINT OF CARE TE ST DOCKED DEVICE UNSOLICITED RESULTS Final Result [facility] [address] [place] [address] * (ABNORMAL) POCT glucose meter (11/11/2024 8:18 PM EDT) [facility] POCT Glucose 248(H) 74 - 99 mg/dL [...] for testing. Comment 11/11/2024 8:20 PM EDT [facility] Chemical Processor ID Nelda Gerber 11/12/19 8:20 PM EDT [facility] Device ID [id number] 11/11/2024 8:20 PM EDT [facility] Specimen Type POC Capillary 11/11/2024 8:20 PM EDT [facility] Blood Capillary blood specimen / Unknown 11/11/2024 8:18 PM EDT 11/11/2024 8:20 PM EDT us Nathaly Nowak MD LAB POINT OF CARE TE ST DOCKED DEVICE UNSOLICITED RESULTS Final Result Performing Organization Address City/[facility] Co de Phone Number [facility] [address] [place] [address] * (ABNORMAL) POCT glucose meter (11/11/2024 5:59 PM EDT) POCT Glucose 147(H) 74 - 99 mg/dL 11/11/2024 6:01 PM EDT [facility] Comment:Accuracy of a [...] Comment 11/11/2024 6:01 PM EDT [facility] Chemical Processor ID Wade Feliciano Tobias 6:01 PM EDT [facility] Device ID [id number] 11/11/2024 6:01 PM EDT [facility] Specimen Type POC Capillary 11/11/2024 6:01 PM EDT [facility] Blood Capillary blood specimen / Unknown 11/11/2024 5:59 PM EDT 11/11/2024 6:01 PM EDT us Nathaly Nowak MD LAB POINT OF CARE TE ST DOCKED DEVICE UNSOLICITED RESULTS Final Result Performing Organization Address City/[facility] Co de Phone Number [facility] [address] [place] [address] * POCT glucose meter (11/11/2024 5:20 PM [...] Comment 11/11/2024 5:22 PM EDT [facility] Chemical Processor ID Wade Feliciano 5:22 PM EDT [facility] Device ID [id number] 11/11/2024 5:22 PM EDT [facility] Specimen Type POC Capillary 11/11/2024 5:22 PM EDT [facility] Blood Capillary blood specimen / Unknown 11/11/2024 5:20 PM EDT 11/11/2024 5:22 PM EDT us Nathaly Nowak MD LAB POINT OF CARE TE ST DOCKED DEVICE UNSOLICITED RESULTS Final Result Performing Organization Address City/State/[facility] Co de Phone Number [facility] [address] [place] [address] * IN NEGATIVE PRESSURE WOUND THERAPY DME >50 SQ [...] of procedure: Tolerated well, no immediate complications us Nathaly Nowak MD IN CLINIC/BEDSIDE ORDERABLES Fi nal Result * (ABNORMAL) POCT glucose meter (11/11/2024 12:08 PM EDT) [facility] POCT Glucose 226(H) 74 - 99 mg/dL 11/11/2024 12:10 PM EDT [facility] Comment:Accuracy of a [...] Comment 11/11/2024 12:10 PM EDT [facility] Chemical Processor ID Wade Feliciano 12:10 PM EDT [employer] [facility] Device ID [id number] 11/11/2024 12:10 PM EDT [facility] Specimen Type POC Capillary 11/11/2024 12:10 PM EDT [facility] Blood Capillary blood specimen / Unknown 11/11/2024 12:08 PM EDT 11/11/2024 12:10 PM EDT us Nathaly Nowak MD LAB POINT OF CARE TE ST DOCKED DEVICE UNSOLICITED RESULTS Final Result Performing Organization Address City/State/[facility] Co de Phone Number [facility] [address] [place] [address] * (ABNORMAL) POCT glucose meter (11/11/2024 9:08 AM EDT) [facility] POCT Glucose 162(H) 74 - 99 mg/dL [...] 11/11/2024 9:09 AM EDT [facility] Chemical Processor ID Wade Feliciano 9:09 AM EDT [facility] Device ID [id number] 11/11/2024 9:09 AM EDT [facility] Specimen Type POC Capillary 11/11/2024 9:09 AM EDT [facility] Blood Capillary blood specimen / Unknown 11/11/2024 9:08 AM EDT 11/11/2024 9:09 AM EDT Nathaly Nowak MD LAB POINT OF CARE TE ST DOCKED DEVICE UNSOLICITED RESULTS Final Result Performing Organization Address City/[facility] Co de Phone Number [facility] [address] [place] [address] * POCT glucose meter (11/11/2024 8:27 AM [...] for testing. Comment 11/11/2024 8:28 AM EDT [facility] Chemical Processor ID Wade Feliciano 8:28 AM EDT [facility]ALTH[facility] Device ID [id number] 11/11/2024 8:28 AM EDT [facility] Specimen Type POC Capillary 11/11/2024 8:28 AM EDT [facility] Blood Capillary blood specimen / Unknown 11/11/2024 8:27 AM EDT 11/11/2024 8:28 AM EDT Nathaly Nowak MD LAB POINT OF CARE TE ST DOCKED DEVICE UNSOLICITED RESULTS Final Result Performing Organization Address City/[facility]/ZIP Co de Phone Number [facility] [address] [place] [address] * (ABNORMAL) Basic Metabolic Panel, Plasma (11/11/2024 1:12 AM EDT) Glucose, Plasma 122(H) 74 - 99 mg/dL 11/11/2024 1:12 AM EDT [facility] BUN, Plasma 10 8 - 23 mg/dL 11/11/2024 1:12 AM EDT [facility] Creatinine, Plasma 0.82 0.70 - 1.20 mg/dL 11/11/2024 1:12 AM EDT [facility] BUN/Creatinine Ratio 12 11/11/2024 1:12 AM EDT [facility] Sodium, Plasma 137 136 - 145 mmol/L 11/11/2024 1:12 AM EDT [facility] Potassium, Plasma 3.9 3.6 - 4.9 mmol/L 11/11/2024 1:12 AM EDT [facility] Chloride, Plasma 110(H) 97 - 107 mmol/L 11/11/2024 1:12 AM EDT [facility] CO2, Plasma 20(L) 22 - 29 mmol/L 11/11/2024 1:12 AM EDT [facility] Anion Gap 7 6 - 16 mmol/L 11/11/2024 1:12 AM EDT [facility] Total Calcium, Plasma 7.6(L) 8.9 - 10.2 mg/dL 11/11/2024 1:12 AM EDT [facility] eGFRcr 97.5 mL/min/1.7 3m*2 11/11/2024 1:12 AM EDT [facility] Comment:Reported eGFRcr in m L/min/1.73m2 is based the CKD-EPI 2020 equation that does not use a race coefficient. Blood Venous blood specimen / Unknown 11/11/2024 12:42 AM EDT us Nathaly Nowak MD LAB BLOOD ORDERABLES Final Resu lt [facility] [address] [place] [address] * (ABNORMAL) CBC W/O Differential (11/11/2024 12:56 AM EDT) WBC Count 11.83(H) 3.70 - 10.30 10*3/uL LAB HEMATOLOGY METHOD 11/11/2024 12:56 AM EDT [facility] RBC Count 2.97(L) 4.60 - 6.10 10*6/uL LAB HEMATOLOGY METHOD 11/11/2024 12:56 AM EDT [facility] HGB 8.9(L) 13.7 - 17.5 g/dL LAB HEMATOLOGY METHOD 11/11/2024 12:56 AM EDT [facility] HCT 27.2(L) 40.0 - 51.0 % LAB HEMATOLOGY METHOD 11/11/2024 12:56 AM EDT [facility] Platelet Count 444(H) 155 - 369 10*3/uL LAB HEMATOLOGY METHOD 11/11/2024 12:56 AM EDT [facility] MCV 92 79 - 98 fL LAB HEMATOLOGY METHOD 11/11/2024 12:56 AM EDT [facility] MCH 30.0 26.0 - 32.0 pg LAB HEMATOLOGY METHOD 11/11/2024 12:56 AM EDT [facility] MCHC 32.7 30.7 - 35.5 g/dL LAB HEMATOLOGY METHOD 11/11/2024 12:56 AM EDT [facility] RDW 13.3 11.5 - 14.5 % LAB HEMATOLOGY METHOD 11/11/2024 12:56 AM EDT [facility] MPV 9.0 8.8 - 12.5 fL LAB HEMATOLOGY METHOD 11/11/2024 12:56 AM EDT [facility] nRBC 0.0 <=0.0 per 100 WBCs LAB HEMATOLOGY METHOD 11/11/2024 12:56 AM EDT [facility] Blood Venous blood specimen / Unknown 11/11/2024 12:42 AM EDT us Nathaly Nowak MD LAB BLOOD ORDERABLES Final Resu lt [facility] [address] [place] [address] * (ABNORMAL) POCT glucose meter (11/10/2024 8:25 PM EDT) [facility] POCT Glucose 144(H) 74 - 99 mg/dL 11/10/2024 8:28 PM EDT [facility] Comment:Accuracy of a glucos e [...] for testing. Comment 11/10/2024 8:28 PM EDT [facility] Chemical Processor ID Nelda Gerber 11/11/19 8:28 PM EDT [facility] Device ID [id number] 11/10/2024 8:28 PM EDT [facility] Specimen Type POC Capillary 11/10/2024 8:28 PM EDT [facility] Blood Capillary blood specimen / Unknown 11/10/2024 8:25 PM EDT 11/10/2024 8:28 PM EDT Nathaly Nowak MD LAB POINT OF CARE TE ST DOCKED DEVICE UNSOLICITED RESULTS Final Result Performing Organization Address [facility] de Phone Number [facility] [address] [place] [address] * (ABNORMAL) POCT glucose meter (11/10/2024 4:45 [...] for testing. Comment 11/10/2024 4:47 PM EDT [facility] Chemical Processor ID Esperanza Parks 11/10/2024 4:47 PM EDT [facility]ALTH[facility]ARE LAB Device ID [id number] 11/10/2024 4:47 PM EDT [facility] Specimen Type POC Capillary 11/10/2024 4:47 PM EDT [facility] Blood Capillary blood specimen / Unknown 11/10/2024 4:45 PM EDT 11/10/2024 4:47 PM EDT us Nathaly Nowak MD LAB POINT OF CARE TE ST DOCKED DEVICE UNSOLICITED RESULTS Final Result Performing Organization Address City/[facility] Co de Phone Number [facility] [address] [place] [address] * (ABNORMAL) POCT glucose meter (11/10/2024 12:13 [...] Comment 11/10/2024 12:14 PM EDT [facility] Chemical Processor ID Esperanza Parks 11/10/2024 12:14 PM EDT [facility] Device ID [id number] 11/10/2024 12:14 PM EDT [facility] Specimen Type POC Capillary 11/10/2024 12:14 PM EDT [facility] Blood Capillary blood specimen / Unknown 11/10/2024 12:13 PM EDT 11/10/2024 12:14 PM EDT us Nathaly Nowak MD LAB POINT OF CARE TE ST DOCKED DEVICE UNSOLICITED RESULTS Final Result [facility] [address] [place] [address] * Vancomycin, Peak, Plasma Please draw ~2 hours after 0800 dose of vancomycin finishes infusing. Consider obtaining level via peripheral stick. If peripheral stick is not feasible, please ensure that line is flushed well prior to drawing level. Than... (11/10/2024 10:56 AM EDT) Pathologist [facility] Vancomycin, Peak, Plasma 23.8 20.0 - 40.0 ug/mL 11/10/2024 11:25 AM EDT [facility] Blood Venous blood specimen / Unknown Venipuncture / Unknown 11/10/2024 10:56 AM EDT 11/10/2024 11:00 AM EDT Narrative [facility] - 11/10/2024 11:25 AM EDT Therapeutic Peak level: 20-40ug/mL Supra-therapeutic Peak level: >40 ug/mL us Abigail Seay MD LAB BLOOD ORDERABLES Final Res ult Performing Organization Address [facility]/ZIP Co de Phone Number [facility] [address] [place] [address] * (ABNORMAL) POCT glucose meter (11/10/2024 8:03 [...] Comment 11/10/2024 8:04 AM EDT [facility] Chemical Processor ID Esperanza Parks 11/10/2024 8:04 AM EDT HEALTHCARE LAB Device ID [id number] 11/10/2024 8:04 AM EDT [facility] Specimen Type POC Capillary 11/10/2024 8:04 AM EDT [facility] Blood Capillary blood specimen / Unknown 11/10/2024 8:03 AM EDT 11/10/2024 8:04 AM EDT us Nathaly Nowak MD LAB POINT OF CARE TE ST DOCKED DEVICE UNSOLICITED RESULTS Final Result Performing Organization Address [facility] Co de Phone Number [facility] [address] [place] [address] * Vancomycin, Trough, Plasma Please draw ~30 minutes prior to dose due at 0800 on 11/10. Please do NOThold dose awaiting level to return. Consider obtaining level via peripheral stick. If peripheral stick is not feasible, please ensure that line is... (11/10/2024 7:27 AM EDT) Vancomycin, Trough, Plasma 16.2 10.0 - 20.0 ug/mL 11/10/2024 8:24 AM EDT [facility] Blood Venous blood specimen / Unknown Venipuncture / Unknown 11/10/2024 7:27 AM EDT 11/10/2024 7:51 AM EDT Narrative [facility] - 11/10/2024 8:24 AM EDT Therapeutic Trough level: 10-20ug/mL Supra-therapeutic Trough level: >20 ug/mL us Abigail Seay MD LAB BLOOD ORDERABLES Final Res ult [facility] [address] [place] [address] * (ABNORMAL) CBC and Differential (11/10/2024 12:31 AM EDT) WBC Count 10.80(H) 3.70 - 10.30 10*3/uL LAB HEMATOLOGY METHOD 11/10/2024 12:53 AM EDT [facility] RBC Count 3.06(L) 4.60 - 6.10 10*6/uL LAB HEMATOLOGY METHOD 11/10/2024 12:53 AM EDT [facility] HGB 9.1(L) 13.7 - 17.5 g/dL LAB HEMATOLOGY METHOD 11/10/2024 12:53 AM EDT [facility] HCT 28.0(L) 40.0 - 51.0 % LAB HEMATOLOGY METHOD 11/10/2024 12:53 AM EDT [facility] Platelet Count 501(H) 155 - 369 10*3/uL LAB HEMATOLOGY METHOD 11/10/2024 12:53 AM EDT [facility] MCV 92 79 - 98 fL LAB HEMATOLOGY METHOD 11/10/2024 12:53 AM EDT [facility] MCH 29.7 26.0 - 32.0 pg LAB HEMATOLOGY METHOD 11/10/2024 12:53 AM EDT [facility] MCHC 32.5 30.7 - 35.5 g/dL LAB HEMATOLOGY METHOD 11/10/2024 12:53 AM EDT [facility] RDW 13.2 11.5 - 14.5 % LAB HEMATOLOGY METHOD 11/10/2024 12:53 AM EDT [facility] MPV 8.8 8.8 - 12.5 fL LAB HEMATOLOGY METHOD 11/10/2024 12:53 AM EDT [facility] nRBC 0.0 <=0.0 per 100 WBCs LAB HEMATOLOGY METHOD 11/10/2024 12:53 AM EDT [facility] Differential Type Automated LAB HEMATOLOGY METHOD 11/10/2024 12:53 AM EDT [facility] Neutrophils % 77 % LAB HEMATOLOGY METHOD 11/10/2024 12:53 AM EDT [facility] Lymphocytes % 13 % LAB HEMATOLOGY METHOD 11/10/2024 12:53 AM EDT [facility] Monocytes % 8 % LAB HEMATOLOGY METHOD 11/10/2024 12:53 AM EDT [facility] Eosinophils % 1 % LAB HEMATOLOGY METHOD 11/10/2024 12:53 AM EDT [facility] Basophils % 0 % LAB HEMATOLOGY METHOD 11/10/2024 12:53 AM EDT [facility] Immature Granulocytes % 1 % LAB HEMATOLOGY METHOD 11/10/2024 12:53 AM EDT [facility] Neutrophils Absolute 8.32(H) 1.60 - 6.10 10*3/uL LAB HEMATOLOGY METHOD 11/10/2024 12:53 AM EDT [facility] Lymphocytes Absolute 1.40 1.20 - 3.90 10*3/uL LAB HEMATOLOGY METHOD 11/10/2024 12:53 AM EDT [facility] Monocytes Absolute 0.89 0.30 - 0.90 10*3/uL LAB HEMATOLOGY METHOD 11/10/2024 12:53 AM EDT [facility] Eosinophils Absolute 0.09 0.00 - 0.50 10*3/uL LAB HEMATOLOGY METHOD 11/10/2024 12:53 AM EDT [facility] Basophils Absolute 0.04 0.00 - 0.10 10*3/uL LAB HEMATOLOGY METHOD 11/10/2024 12:53 AM EDT [facility] Immature Granulocytes Absolute 0.06 0.00 - 0.06 10*3/uL LAB HEMATOLOGY METHOD 11/10/2024 12:53 AM EDT [facility] Blood Venous blood specimen / Unknown Venipuncture / Unknown 11/10/2024 12:31 AM EDT 11/10/2024 12:37 AM EDT [facility] - 11/10/2024 12:53 AM EDT Therapeutic decision making should be based on absolute values, rather than percentages. us Nathaly Nowak MD LAB BLOOD ORDERABLES Final Resu lt [facility] [address] [place] [address] * (ABNORMAL) Comprehensive Metabolic Panel, Plasma (11/10/2024 12:31 AM EDT) Glucose, Plasma 185(H) 74 - 99 mg/dL 11/10/2024 1:05 AM EDT [facility] BUN, Plasma 9 8 - 23 mg/dL 11/10/2024 1:05 AM EDT [facility] Creatinine, Plasma 0.72 0.70 - 1.20 mg/dL 11/10/2024 1:05 AM EDT [facility] BUN/Creatinine Ratio 13 11/10/2024 1:05 AM EDT [facility] Sodium, Plasma 135(L) 136 - 145 mmol/L 11/10/2024 1:05 AM EDT [facility] Potassium, Plasma 4.0 3.6 - 4.9 mmol/L 11/10/2024 1:05 AM EDT [facility] Chloride, Plasma 106 97 - 107 mmol/L 11/10/2024 1:05 AM EDT [facility] CO2, Plasma 19(L) 22 - 29 mmol/L 11/10/2024 1:05 AM EDT [facility] Anion Gap 10 6 - 16 mmol/L 11/10/2024 1:05 AM EDT [facility] Total Calcium, Plasma 7.8(L) 8.9 - 10.2 mg/dL 11/10/2024 1:05 AM EDT [facility] Total Protein 5.6(L) 6.3 - 7.9 g/dL 11/10/2024 1:05 AM EDT [facility] Albumin, Plasma 3.1(L) 3.5 - 5.2 g/dL 11/10/2024 1:05 AM EDT [facility] AST, Plasma 33 10 - 50 U/L 11/10/2024 1:05 AM EDT [facility] ALT, Plasma 25 10 - 50 U/L 11/10/2024 1:05 AM EDT [facility] Alkaline Phosphatase, Plasma 108 40 - 115 U/L 11/10/2024 1:05 AM EDT [facility] Total Bilirubin, Plasma <0.2(L) 0.2 - 1.1 mg/dL 11/10/2024 1:05 AM EDT [facility] eGFRcr 101.4 mL/min/1.7 3m*2 11/10/2024 1:05 AM EDT [facility] Comment:Reported eGFRcr in m L/min/1.73m2 is based the CKD-EPI 2020 equation that does not use a race coefficient. Blood Venous blood specimen / Unknown Venipuncture / Unknown 11/10/2024 12:31 AM EDT 11/10/2024 12:37 AM EDT Nathaly Nowak MD LAB BLOOD ORDERABLES Final Resu lt [facility] [address] [place] [address] * (ABNORMAL) POCT glucose meter (11/09/2024 8:04 [...] Comment 11/09/2024 8:06 PM EDT [facility] Chemical Processor ID Jade WALTERS Maximiliano 11/09/2024 8:06 PM EDT [facility] LAB Device ID [id number] 11/09/2024 8:06 PM EDT [facility] Specimen Type POC Capillary 11/09/2024 8:06 PM EDT [facility] Blood Capillary blood specimen / Unknown 11/09/2024 8:04 PM EDT 11/09/2024 8:06 PM EDT us Nathaly Nowak MD LAB POINT OF CARE TE ST DOCKED DEVICE UNSOLICITED RESULTS Final Result Performing Organization Address [facility] de Phone Number [facility] [address] [place] [address] * (ABNORMAL) POCT glucose meter (11/09/2024 4:36 [...] Comment 11/09/2024 4:38 PM EDT [facility] Chemical Processor ID Kristian Sosa 11/09/2024 4:38 PM EDT [facility] LAB Device ID [id number] 11/09/2024 4:38 PM EDT [facility] LAB Specimen Type POC Capillary 11/09/2024 4:38 PM EDT [facility] Blood Capillary blood specimen / Unknown 11/09/2024 4:36 PM EDT 11/09/2024 4:38 PM EDT us Nathaly Nowak MD LAB POINT OF CARE TE ST DOCKED DEVICE UNSOLICITED RESULTS Final Result Performing Organization Address City/[facility] de Phone Number [facility] [address] [place] [address] * PICC SINGLE LUMEN (SM[employer] LINK) (11/09/2024 1:11 PM EDT) Narrative Estefani Barraza RN - 11/09/2024 1:11 PM EDT Estefani Barraza RN 11/09/2024 1:12 PM Insert PICC line Date/Time: 11/09/2024 1:11 PM Performed by: Estefani Barraza RN Authorized by: Nathaly Nowak MD [place] Protocol: Verbal consent obtained?: Yes Written consent [...] selection rationale: Left pacemaker Catheter Lot #: 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 Comment 11/09/2024 11:51 AM EDT [facility] Chemical Processor ID Kristian Sosa 11/09/2024 11:51 AM EDT HEALTHCARE LAB Device ID [id number] 11/09/2024 11:51 AM EDT [facility] LAB Specimen Type POC Capillary 11/09/2024 11:51 AM EDT [facility] Blood Capillary blood specimen / Unknown 11/09/2024 11:50 AM EDT 11/09/2024 11:51 AM EDT Nathaly Nowak MD LAB POINT OF CARE TE ST DOCKED DEVICE UNSOLICITED RESULTS Final Result Performing Organization Address City/[facility] Co de Phone Number [facility] [address] [place] [address] * (ABNORMAL) POCT glucose meter (11/09/2024 8:14 AM EDT) [facility] POCT Glucose 153(H) 74 - 99 [...] Comment 11/09/2024 8:15 AM EDT [facility] Chemical Processor ID Kristian Sosa 11/09/2024 8:15 AM EDT HEALTH[facility]ARE LAB Device ID [id number] 11/09/2024 8:15 AM EDT [facility] LAB Specimen Type POC Capillary 11/09/2024 8:15 AM EDT [facility] Blood Capillary blood specimen / Unknown 11/09/2024 8:14 AM EDT 11/09/2024 8:15 AM EDT Nathaly Nowak MD LAB POINT OF CARE TE ST DOCKED DEVICE UNSOLICITED RESULTS Final Result Performing Organization Address City/[facility]/ZIP Co de Phone Number [facility] [address] [place] [address] * (ABNORMAL) CBC and Differential (11/09/2024 4:15 AM EDT) [facility] Signature WBC Count 10.27 3.70 - 10.30 10*3/uL LAB HEMATOLOGY METHOD 11/09/2024 4:26 AM EDT [facility] RBC Count 3.14(L) 4.60 - 6.10 10*6/uL LAB HEMATOLOGY METHOD 11/09/2024 4:26 AM EDT [facility] HGB 9.2(L) 13.7 - 17.5 g/dL LAB HEMATOLOGY METHOD 11/09/2024 4:26 AM EDT [facility] HCT 28.3(L) 40.0 - 51.0 % LAB HEMATOLOGY METHOD 11/09/2024 4:26 AM EDT [facility] Platelet Count 468(H) 155 - 369 10*3/uL LAB HEMATOLOGY METHOD 11/09/2024 4:26 AM EDT [facility] MCV 90 79 - 98 fL LAB HEMATOLOGY METHOD 11/09/2024 4:26 AM EDT [facility] MCH 29.3 26.0 - 32.0 pg LAB HEMATOLOGY METHOD 11/09/2024 4:26 AM EDT [facility] MCHC 32.5 30.7 - 35.5 g/dL LAB HEMATOLOGY METHOD 11/09/2024 4:26 AM EDT [facility] RDW 13.1 11.5 - 14.5 % LAB HEMATOLOGY METHOD 11/09/2024 4:26 AM EDT [facility] MPV 8.7(L) 8.8 - 12.5 fL LAB HEMATOLOGY METHOD 11/09/2024 4:26 AM EDT [facility] nRBC 0.0 <=0.0 per 100 WBCs LAB HEMATOLOGY METHOD 11/09/2024 4:26 AM EDT [facility] Differential Type Automated LAB HEMATOLOGY METHOD 11/09/2024 4:26 AM EDT [facility] Neutrophils % 77 % LAB HEMATOLOGY METHOD 11/09/2024 4:26 AM EDT [facility] Lymphocytes % 13 % LAB HEMATOLOGY METHOD 11/09/2024 4:26 AM EDT [facility] Monocytes % 8 % LAB HEMATOLOGY METHOD 11/09/2024 4:26 AM EDT [facility] Eosinophils % 1 % LAB HEMATOLOGY METHOD 11/09/2024 4:26 AM EDT [facility] Basophils % 0 % LAB HEMATOLOGY METHOD 11/09/2024 4:26 AM EDT [facility] Immature Granulocytes % 1 % LAB HEMATOLOGY METHOD 11/09/2024 4:26 AM EDT [facility] Neutrophils Absolute 7.97(H) 1.60 - 6.10 10*3/uL LAB HEMATOLOGY METHOD 11/09/2024 4:26 AM EDT [facility] Lymphocytes Absolute 1.32 1.20 - 3.90 10*3/uL LAB HEMATOLOGY METHOD 11/09/2024 4:26 AM EDT [facility] Monocytes Absolute 0.83 0.30 - 0.90 10*3/uL LAB HEMATOLOGY METHOD 11/09/2024 4:26 AM EDT [facility] Eosinophils Absolute 0.07 0.00 - 0.50 10*3/uL LAB HEMATOLOGY METHOD 11/09/2024 4:26 AM EDT [facility] Basophils Absolute 0.03 0.00 - 0.10 10*3/uL LAB HEMATOLOGY METHOD 11/09/2024 4:26 AM EDT [facility] Immature Granulocytes Absolute 0.05 0.00 - 0.06 10*3/uL LAB HEMATOLOGY METHOD 11/09/2024 4:26 AM EDT [facility] Blood Venous blood specimen / Unknown Venipuncture / Unknown 11/09/2024 4:15 AM EDT 11/09/2024 4:18 AM EDT Narrative [facility] - 11/09/2024 4:26 AM EDT Therapeutic decision making should be based on absolute values, rather than percentages. us Nathaly Nowak MD LAB BLOOD ORDERABLES Final Resu lt [facility] [address] [place] [address] * (ABNORMAL) Comprehensive Metabolic Panel, Plasma (11/09/2024 4:15 AM EDT) Glucose, Plasma 171(H) 74 - 99 mg/dL 11/09/2024 4:47 AM EDT [facility] BUN, Plasma 9 8 - 23 mg/dL 11/09/2024 4:47 AM EDT [facility] Creatinine, Plasma 0.67(L) 0.70 - 1.20 mg/dL 11/09/2024 4:47 AM EDT [facility] BUN/Creatinine Ratio 13 11/09/2024 4:47 AM EDT [facility] Sodium, Plasma 134(L) 136 - 145 mmol/L 11/09/2024 4:47 AM EDT [facility] Potassium, Plasma 4.1 3.6 - 4.9 mmol/L 11/09/2024 4:47 AM EDT [facility] Chloride, Plasma 104 97 - 107 mmol/L 11/09/2024 4:47 AM EDT [facility] CO2, Plasma 21(L) 22 - 29 mmol/L 11/09/2024 4:47 AM EDT [facility] Anion Gap 9 6 - 16 mmol/L 11/09/2024 4:47 AM EDT [facility] Total Calcium, Plasma 8.4(L) 8.9 - 10.2 mg/dL 11/09/2024 4:47 AM EDT [facility] Total Protein 5.8(L) 6.3 - 7.9 g/dL 11/09/2024 4:47 AM EDT [facility] Albumin, Plasma 3.2(L) 3.5 - 5.2 g/dL 11/09/2024 4:47 AM EDT [facility] AST, Plasma 18 10 - 50 U/L 11/09/2024 4:47 AM EDT [facility] ALT, Plasma 17 10 - 50 U/L 11/09/2024 4:47 AM EDT [facility] Alkaline Phosphatase, Plasma 110 40 - 115 U/L 11/09/2024 4:47 AM EDT [facility] Total Bilirubin, Plasma <0.2(L) 0.2 - 1.1 mg/dL 11/09/2024 4:47 AM EDT [facility] eGFRcr 103.6 mL/min/1.7 3m*2 11/09/2024 4:47 AM EDT [facility] Comment:Reported eGFRcr in m L/min/1.73m2 is based the CKD-EPI 2020 equation that does not use a race coefficient. Blood Venous blood specimen / Unknown Venipuncture / Unknown 11/09/2024 4:15 AM EDT 11/09/2024 4:18 AM EDT Nathaly Nowak MD LAB BLOOD ORDERABLES Final Resu lt Performing Organization Address City/[facility]/ZIP Co de Phone Number [facility] [address] [place] [address] * (ABNORMAL) POCT glucose meter (11/09/2024 3:30 [...] for testing. Comment 11/09/2024 3:31 AM EDT [facility] Chemical Processor ID Maximiliano Hansen II 11/09/2024 3:31 AM EDT HEALTHCARE LAB Device ID [id number] 11/09/2024 3:31 AM EDT [facility] Specimen Type POC Capillary 11/09/2024 3:31 AM EDT [facility] Blood Capillary blood specimen / Unknown 11/09/2024 3:30 AM EDT 11/09/2024 3:31 AM EDT Nathaly Nowak MD LAB POINT OF CARE TE ST DOCKED DEVICE UNSOLICITED RESULTS Final Result Performing Organization Address City/[facility]/ZIP Co de Phone Number [facility] [address] [place] [address] * (ABNORMAL) POCT glucose meter (11/08/2024 7:21 [...] Comment 11/08/2024 7:22 PM EDT [facility] Chemical Processor ID Maximiliano Hansen II 11/08/2024 7:22 PM EDT [facility] LAB Device ID [id number] 11/08/2024 7:22 PM EDT [facility] LAB Specimen Type POC Capillary 11/08/2024 7:22 PM EDT [facility] Blood Capillary blood specimen / Unknown 11/08/2024 7:21 PM EDT 11/08/2024 7:22 PM EDT Nathaly Nowak MD LAB POINT OF CARE TE ST DOCKED DEVICE UNSOLICITED RESULTS Final Result Performing Organization Address City/State/[facility] Co de Phone Number [facility] [address] [place] [address] * (ABNORMAL) POCT glucose meter (11/08/2024 5:12 PM EDT) [facility] POCT Glucose 178(H) 74 - 99 [...] Comment 11/08/2024 5:14 PM EDT [facility] Chemical Processor ID Estefani Sheth 11/08/2024 5:14 PM EDT [facility] LAB Device ID [id number] 11/08/2024 5:14 PM EDT [facility] Specimen Type POC Capillary 11/08/2024 5:14 PM EDT [facility] Blood Capillary blood specimen / Unknown 11/08/2024 5:12 PM EDT 11/08/2024 5:14 PM EDT Nathaly Nowak MD LAB POINT OF CARE TE ST DOCKED DEVICE UNSOLICITED RESULTS Final Result Performing Organization Address City/[facility] Co de Phone Number [facility] [address] [place] [address] * (ABNORMAL) POCT glucose meter (11/08/2024 12:03 [...] Comment 11/08/2024 12:05 PM EDT [facility] Chemical Processor ID Estefani Sheth 11/08/2024 12:05 PM EDT [facility]ARE LAB Device ID [id number] 11/08/2024 12:05 PM EDT [facility] Specimen Type POC Capillary 11/08/2024 12:05 PM EDT [facility] Blood Capillary blood specimen / Unknown 11/08/2024 12:03 PM EDT 11/08/2024 12:05 PM EDT Nathaly Nowak MD LAB POINT OF CARE TE ST DOCKED DEVICE UNSOLICITED RESULTS Final Result Performing Organization Address City/[facility] Co de Phone Number [facility] [address] [place] [address] * Vancomycin, Peak, Plasma Please draw ~2 hours after 11/08 0600 dose of vancomycin finishes infusing.Consider obtaining level via peripheral stick. If peripheral stick is not feasible, please ensure that line is flushed well prior to drawing level.... (11/08/2024 9:24 AM EDT) Vancomycin, Peak, Plasma 29.1 20.0 - 40.0 ug/mL 11/08/2024 10:31 AM EDT [facility] Blood Venous blood specimen / Unknown Venipuncture / Unknown 11/08/2024 9:24 AM EDT 11/08/2024 9:47 AM EDT Narrative [facility] - 11/08/2024 10:31 AM EDT Therapeutic Peak level: 20-40ug/mL Supra-therapeutic Peak level: >40 ug/mL Nathaly Nowak MD LAB BLOOD ORDERABLES Final Resu lt Performing Organization Address City/[facility]/ZIP Co de Phone Number [facility] [address] [place] [address] * (ABNORMAL) POCT glucose meter (11/08/2024 8:00 AM EDT) [facility] POCT Glucose 150(H) 74 - 99 mg/dL [...] Comment 11/08/2024 8:01 AM EDT [facility] Chemical Processor ID Estefani Sheth 11/08/2024 8:01 AM EDT [facility]ALTHCARE LAB Device ID [id number] 11/08/2024 8:01 AM EDT [facility] Specimen Type POC Capillary 11/08/2024 8:01 AM EDT [facility] Blood Capillary blood specimen / Unknown 11/08/2024 8:00 AM EDT 11/08/2024 8:01 AM EDT Nathaly Nowak MD LAB POINT OF CARE TE ST DOCKED DEVICE UNSOLICITED RESULTS Final Result Performing Organization Address City/[facility]/ZIP Co de Phone Number [facility] [address] [place] [address] * (ABNORMAL) CBC and Differential (11/08/2024 4:39 AM EDT) [facility] WBC Count 9.18 3.70 - 10.30 10*3/uL LAB HEMATOLOGY METHOD 11/08/2024 4:58 AM EDT [facility] RBC Count 3.11(L) 4.60 - 6.10 10*6/uL LAB HEMATOLOGY METHOD 11/08/2024 4:58 AM EDT [facility] HGB 9.2(L) 13.7 - 17.5 g/dL LAB HEMATOLOGY METHOD 11/08/2024 4:58 AM EDT [facility] HCT 28.9(L) 40.0 - 51.0 % LAB HEMATOLOGY METHOD 11/08/2024 4:58 AM EDT [facility] Platelet Count 485(H) 155 - 369 10*3/uL LAB HEMATOLOGY METHOD 11/08/2024 4:58 AM EDT [facility] MCV 93 79 - 98 fL LAB HEMATOLOGY METHOD 11/08/2024 4:58 AM EDT [facility] MCH 29.6 26.0 - 32.0 pg LAB HEMATOLOGY METHOD 11/08/2024 4:58 AM EDT [facility] MCHC 31.8 30.7 - 35.5 g/dL LAB HEMATOLOGY METHOD 11/08/2024 4:58 AM EDT [facility] RDW 13.0 11.5 - 14.5 % LAB HEMATOLOGY METHOD 11/08/2024 4:58 AM EDT [facility] MPV 8.8 8.8 - 12.5 fL LAB HEMATOLOGY METHOD 11/08/2024 4:58 AM EDT [facility] nRBC 0.0 <=0.0 per 100 WBCs LAB HEMATOLOGY METHOD 11/08/2024 4:58 AM EDT [facility] Differential Type Automated LAB HEMATOLOGY METHOD 11/08/2024 4:58 AM EDT [facility] Neutrophils % 69 % LAB HEMATOLOGY METHOD 11/08/2024 4:58 AM EDT [facility] Lymphocytes % 17 % LAB HEMATOLOGY METHOD 11/08/2024 4:58 AM EDT [facility] Monocytes % 10 % LAB HEMATOLOGY METHOD 11/08/2024 4:58 AM EDT [facility] Eosinophils % 2 % LAB HEMATOLOGY METHOD 11/08/2024 4:58 AM EDT [facility] Basophils % 1 % LAB HEMATOLOGY METHOD 11/08/2024 4:58 AM EDT [facility] Immature Granulocytes % 1 % LAB HEMATOLOGY METHOD 11/08/2024 4:58 AM EDT [facility] Neutrophils Absolute 6.40(H) 1.60 - 6.10 10*3/uL LAB HEMATOLOGY METHOD 11/08/2024 4:58 AM EDT [facility] Lymphocytes Absolute 1.59 1.20 - 3.90 10*3/uL LAB HEMATOLOGY METHOD 11/08/2024 4:58 AM EDT [facility] Monocytes Absolute 0.87 0.30 - 0.90 10*3/uL LAB HEMATOLOGY METHOD 11/08/2024 4:58 AM EDT [facility] Eosinophils Absolute 0.22 0.00 - 0.50 10*3/uL LAB HEMATOLOGY METHOD 11/08/2024 4:58 AM EDT [facility] Basophils Absolute 0.05 0.00 - 0.10 10*3/uL LAB HEMATOLOGY METHOD 11/08/2024 4:58 AM EDT [facility] Immature Granulocytes Absolute 0.05 0.00 - 0.06 10*3/uL LAB HEMATOLOGY METHOD 11/08/2024 4:58 AM EDT [facility] Blood Venous blood specimen / Unknown Venipuncture / Unknown 11/08/2024 4:39 AM EDT 11/08/2024 4:49 AM EDT Narrative [facility] - 11/08/2024 4:58 AM EDT Therapeutic decision making should be based on absolute values, rather than percentages. us Nathaly Nowak MD LAB BLOOD ORDERABLES Final Resu lt [facility] [address] [place] [address] * (ABNORMAL) Comprehensive Metabolic Panel, Plasma (11/08/2024 4:39 AM EDT) Glucose, Plasma 255(H) 74 - 99 mg/dL 11/08/2024 5:20 AM EDT [facility] BUN, Plasma 10 8 - 23 mg/dL 11/08/2024 5:20 AM EDT [facility] Creatinine, Plasma 0.75 0.70 - 1.20 mg/dL 11/08/2024 5:20 AM EDT [facility] BUN/Creatinine Ratio 13 11/08/2024 5:20 AM EDT [facility] Sodium, Plasma 133(L) 136 - 145 mmol/L 11/08/2024 5:20 AM EDT [facility] Potassium, Plasma 5.2(H) 3.6 - 4.9 mmol/L 11/08/2024 5:20 AM EDT [facility] Chloride, Plasma 105 97 - 107 mmol/L 11/08/2024 5:20 AM EDT [facility] CO2, Plasma 20(L) 22 - 29 mmol/L 11/08/2024 5:20 AM EDT [facility] Anion Gap 8 6 - 16 mmol/L 11/08/2024 5:20 AM EDT [facility] Total Calcium, Plasma 7.7(L) 8.9 - 10.2 mg/dL 11/08/2024 5:20 AM EDT [facility] Total Protein 5.6(L) 6.3 - 7.9 g/dL 11/08/2024 5:20 AM EDT [facility] Albumin, Plasma 2.8(L) 3.5 - 5.2 g/dL 11/08/2024 5:20 AM EDT [facility] AST, Plasma 20 10 - 50 U/L 11/08/2024 5:20 AM EDT [facility] Comment:Hemolyzed, result ma y be falsely increased. ALT, Plasma 14 10 - 50 U/L 11/08/2024 5:20 AM EDT [facility] Alkaline Phosphatase, Plasma 119(H) 40 - 115 U/L 11/08/2024 5:20 AM EDT [facility] Total Bilirubin, Plasma <0.2(L) 0.2 - 1.1 mg/dL 11/08/2024 5:20 AM EDT [facility] eGFRcr 100.1 mL/min/1.7 3m*2 11/08/2024 5:20 AM EDT [facility] Comment:Reported eGFRcr in m L/min/1.73m2 is based the CKD-EPI 2020 equation that does not use a race coefficient. Blood Venous blood specimen / Unknown Venipuncture / Unknown 11/08/2024 4:39 AM EDT 11/08/2024 4:43 AM EDT Nathaly Nowak MD LAB BLOOD ORDERABLES Final Resu lt Performing Organization Address [facility] de Phone Number [facility] [address] [place] [address] * Vancomycin, Trough, Plasma Please draw ~30 minutes prior to dose due at 0600 on 11/08. Please do NOThold dose awaiting level to return. Consider obtaining level via peripheral stick. If peripheral stick is not feasible, please ensure that line is... (11/08/2024 4:39 AM EDT) [facility] Vancomycin, Trough, Plasma 18.7 10.0 - 20.0 ug/mL 11/08/2024 5:22 AM EDT [facility] Blood Venous blood specimen / Unknown Venipuncture / Unknown 11/08/2024 4:39 AM EDT 11/08/2024 4:43 AM EDT Narrative [facility] - 11/08/2024 5:22 AM EDT Therapeutic Trough level: 10-20ug/mL Supra-therapeutic Trough level: >20 ug/mL Nathaly Nowak MD LAB BLOOD ORDERABLES Final Resu Performing Organization Address [facility] de Phone Number [facility] [address] [place] [address] * (ABNORMAL) POCT glucose meter (11/07/2024 7:26 PM EDT) [facility] POCT Glucose 172(H) 74 - 99 mg/dL [...] 11/07/2024 7:28 PM EDT [facility] Chemical Processor ID Maximiliano Hansen II 11/07/2024 7:28 PM EDT [facility] Device ID [id number] 11/07/2024 7:28 PM EDT [facility] Specimen Type POC Capillary 11/07/2024 7:28 PM EDT [facility] Blood Capillary blood specimen / Unknown 11/07/2024 7:26 PM EDT 11/07/2024 7:28 PM EDT Nathaly Nowak MD LAB POINT OF CARE TE ST DOCKED DEVICE UNSOLICITED RESULTS Final Result Performing Organization Address City/[facility]/ZIP Co de Phone Number [facility] [address] [place] [address] * (ABNORMAL) POCT glucose meter (11/07/2024 5:51 [...] Comment 11/07/2024 5:52 PM EDT HEALTHCARE LAB Chemical Processor ID Brigitte Castellon 11/07/2024 5:52 PM EDT HEALTHCARE LAB Device ID [id number] 11/07/2024 5:52 PM EDT [facility]ALTH[facility]ARE LAB Specimen Type POC Capillary 11/07/2024 5:52 PM EDT [facility] Blood Capillary blood specimen / Unknown 11/07/2024 5:51 PM EDT 11/07/2024 5:52 PM EDT us Nathaly Nowak MD LAB POINT OF CARE TE ST DOCKED DEVICE UNSOLICITED RESULTS Final Result [facility] [address] [place] [address] * (ABNORMAL) POCT glucose meter (11/07/2024 4:47 [...] for testing. Comment 11/07/2024 4:48 PM EDT [facility]ALTHCARE LAB Chemical Processor ID Estefani Sheth 11/07/2024 4:48 PM EDT HEALTHCARE LAB Device ID [id number] 11/07/2024 4:48 PM EDT [facility]ALTH[facility]ARE LAB Specimen Type POC Capillary 11/07/2024 4:48 PM EDT [facility] Blood Capillary blood specimen / Unknown 11/07/2024 4:47 PM EDT 11/07/2024 4:48 PM EDT us Nathaly Nowak MD LAB POINT OF CARE TE ST DOCKED DEVICE UNSOLICITED RESULTS Final Result Performing Organization Address City/State/[facility] Co de Phone Number [facility] [address] [place] [address] * (ABNORMAL) POCT glucose meter (11/07/2024 12:22 PM EDT) [facility] POCT Glucose 172(H) 74 - 99 mg/dL [...] 11/07/2024 12:24 PM EDT [facility] Chemical Processor ID Estefani Sheth 11/07/2024 12:24 PM EDT HEALTHCARE LAB Device ID [id number] 11/07/2024 12:24 PM EDT HEALTHCARE LAB Specimen Type POC Capillary 11/07/2024 12:24 PM EDT [facility]ALTH[facility]ARE LAB Blood Capillary blood specimen / Unknown 11/07/2024 12:22 PM EDT 11/07/2024 12:24 PM EDT us Nathaly Nowak MD LAB POINT OF CARE TE ST DOCKED DEVICE UNSOLICITED RESULTS Final Result [facility] [address] [place] [id number] * (ABNORMAL) CBC and Differential (11/07/2024 11:37 AM EDT) WBC Count 9.96 3.70 - 10.30 10*3/uL LAB HEMATOLOGY METHOD 11/07/2024 12:33 PM EDT [facility] RBC Count 2.81(L) 4.60 - 6.10 10*6/uL LAB HEMATOLOGY METHOD 11/07/2024 12:33 PM EDT [facility] HGB 8.5(L) 13.7 - 17.5 g/dL LAB HEMATOLOGY METHOD 11/07/2024 12:33 PM EDT [facility] HCT 26.0(L) 40.0 - 51.0 % LAB HEMATOLOGY METHOD 11/07/2024 12:33 PM EDT [facility] Platelet Count 524(H) 155 - 369 10*3/uL LAB HEMATOLOGY METHOD 11/07/2024 12:33 PM EDT [facility] MCV 93 79 - 98 fL LAB HEMATOLOGY METHOD 11/07/2024 12:33 PM EDT [facility] MCH 30.2 26.0 - 32.0 pg LAB HEMATOLOGY METHOD 11/07/2024 12:33 PM EDT [facility] MCHC 32.7 30.7 - 35.5 g/dL LAB HEMATOLOGY METHOD 11/07/2024 12:33 PM EDT [facility] RDW 13.1 11.5 - 14.5 % LAB HEMATOLOGY METHOD 11/07/2024 12:33 PM EDT [facility] MPV 9.0 8.8 - 12.5 fL LAB HEMATOLOGY METHOD 11/07/2024 12:33 PM EDT [facility] nRBC 0.0 <=0.0 per 100 WBCs LAB HEMATOLOGY METHOD 11/07/2024 12:33 PM EDT [facility] Differential Type Automated LAB HEMATOLOGY METHOD 11/07/2024 12:33 PM EDT [facility] Neutrophils % 72 % LAB HEMATOLOGY METHOD 11/07/2024 12:33 PM EDT [facility] Lymphocytes % 17 % LAB HEMATOLOGY METHOD 11/07/2024 12:33 PM EDT [facility] Monocytes % 9 % LAB HEMATOLOGY METHOD 11/07/2024 12:33 PM EDT [facility] Eosinophils % 1 % LAB HEMATOLOGY METHOD 11/07/2024 12:33 PM EDT [facility] Basophils % 1 % LAB HEMATOLOGY METHOD 11/07/2024 12:33 PM EDT [facility] Immature Granulocytes % 0 % LAB HEMATOLOGY METHOD 11/07/2024 12:33 PM EDT [facility] Neutrophils Absolute 7.19(H) 1.60 - 6.10 10*3/uL LAB HEMATOLOGY METHOD 11/07/2024 12:33 PM EDT [facility] Lymphocytes Absolute 1.66 1.20 - 3.90 10*3/uL LAB HEMATOLOGY METHOD 11/07/2024 12:33 PM EDT [facility] Monocytes Absolute 0.88 0.30 - 0.90 10*3/uL LAB HEMATOLOGY METHOD 11/07/2024 12:33 PM EDT [facility] Eosinophils Absolute 0.14 0.00 - 0.50 10*3/uL LAB HEMATOLOGY METHOD 11/07/2024 12:33 PM EDT [facility] Basophils Absolute 0.05 0.00 - 0.10 10*3/uL LAB HEMATOLOGY METHOD 11/07/2024 12:33 PM EDT [facility] Immature Granulocytes Absolute 0.04 0.00 - 0.06 10*3/uL LAB HEMATOLOGY METHOD 11/07/2024 12:33 PM EDT [facility] Blood Venous blood specimen / Unknown Venipuncture / Unknown 11/07/2024 11:37 AM EDT 11/07/2024 12:24 PM EDT [facility] - 11/07/2024 12:33 PM EDT Therapeutic decision making should be based on absolute values, rather than percentages. us Nathaly Nowak MD LAB BLOOD ORDERABLES Final Resu lt [facility] [address] [place] [address] * (ABNORMAL) Comprehensive Metabolic Panel, Plasma (11/07/2024 11:37 AM EDT) Glucose, Plasma 173(H) 74 - 99 mg/dL 11/07/2024 1:31 PM EDT [facility] BUN, Plasma 13 8 - 23 mg/dL 11/07/2024 1:31 PM EDT [facility] Creatinine, Plasma 0.92 0.70 - 1.20 mg/dL 11/07/2024 1:31 PM EDT [facility] BUN/Creatinine Ratio 14 11/07/2024 1:31 PM EDT [facility] Sodium, Plasma 136 136 - 145 mmol/L 11/07/2024 1:31 PM EDT [facility] Potassium, Plasma 4.0 3.6 - 4.9 mmol/L 11/07/2024 1:31 PM EDT [facility] Chloride, Plasma 104 97 - 107 mmol/L 11/07/2024 1:31 PM EDT [facility] CO2, Plasma 23 22 - 29 mmol/L 11/07/2024 1:31 PM EDT [facility] Anion Gap 9 6 - 16 mmol/L 11/07/2024 1:31 PM EDT [facility] Total Calcium, Plasma 7.8(L) 8.9 - 10.2 mg/dL 11/07/2024 1:31 PM EDT [facility] Total Protein 5.7(L) 6.3 - 7.9 g/dL 11/07/2024 1:31 PM EDT [facility] Albumin, Plasma 3.0(L) 3.5 - 5.2 g/dL 11/07/2024 1:31 PM EDT [facility] AST, Plasma 15 10 - 50 U/L 11/07/2024 1:31 PM EDT [facility] ALT, Plasma 16 10 - 50 U/L 11/07/2024 1:31 PM EDT [facility] Alkaline Phosphatase, Plasma 119(H) 40 - 115 U/L 11/07/2024 1:31 PM EDT [facility] Total Bilirubin, Plasma <0.2(L) 0.2 - 1.1 mg/dL 11/07/2024 1:31 PM EDT [facility] eGFRcr 92.3 mL/min/1.7 3m*2 11/07/2024 1:31 PM EDT [facility] Comment:Reported eGFRcr in m L/min/1.73m2 is based the CKD-EPI 2020 equation that does not use a race coefficient. Blood Venous blood specimen / Unknown Venipuncture / Unknown 11/07/2024 11:37 AM EDT 11/07/2024 12:23 PM EDT Nathaly Nowak MD LAB BLOOD ORDERABLES Final Resu lt Performing Organization Address City/[facility]/ZIP Co de Phone Number [facility] [address] [place] [address] * Type and Screen (11/07/2024 11:37 AM EDT) ABO/Rh A Negative 11/06/2024 8:56 AM EDT BLOOD BANK Antibody Screen Negative 11/06/2024 8:56 AM EDT BLOOD BANK Specimen Expiration 11/10/2024 23:59 11/06/2024 8:56 AM EDT BLOOD BANK Blood Venous blood specimen / Unknown Venipuncture / Unknown 11/07/2024 11:37 AM EDT 11/07/2024 11:50 AM EDT Sabrina DOSHI LAB BLOOD BANK TEST ORDERABLES F inal Result Performing Organization Address [facility] de Phone Number BLOOD BANK [address] [place] [address], * (ABNORMAL) POCT glucose meter (11/07/2024 10:34 AM EDT) POCT Glucose 199(H) 74 - 99 mg/dL 11/07/2024 10:36 AM EDT [facility] Comment:Accuracy of a glucos e [...] Comment 11/07/2024 10:36 AM EDT HEALTHCARE LAB Chemical Processor ID Joy Iraheta 11/07/2024 10:36 AM EDT HEALTHCARE LAB Device ID [id number] 11/07/2024 10:36 AM EDT [facility]ALTH[facility]ARE LAB Specimen Type POC Capillary 11/07/2024 10:36 AM EDT [facility] Blood Capillary blood specimen / Unknown 11/07/2024 10:34 AM EDT 11/07/2024 10:36 AM EDT Nathaly Nowak MD LAB POINT OF CARE TE ST DOCKED DEVICE UNSOLICITED RESULTS Final Result Performing Organization Address City/[facility] Co de Phone Number [facility]ALTHCARE LAB [address] [place] [address] * (ABNORMAL) POCT glucose meter (11/07/2024 9:34 AM EDT) POCT Glucose 208(H) 74 - 99 mg/dL [...] Comment 11/07/2024 9:36 AM EDT [facility]ALTH[facility] Chemical Processor ID Brigitte Castellon 11/07/2024 9:36 AM EDT HEALTHCARE LAB Device ID [id number] 11/07/2024 9:36 AM EDT [facility]ALTH[facility]ARE LAB Specimen Type POC Capillary 11/07/2024 9:36 AM EDT [facility] LAB Blood Capillary blood specimen / Unknown 11/07/2024 9:34 AM EDT 11/07/2024 9:36 AM EDT Nathaly Nowak MD LAB POINT OF CARE TE ST DOCKED DEVICE UNSOLICITED RESULTS Final Result Performing Organization Address City/[facility]/ZIP Co de Phone Number [facility] LAB [address] [place] [address] * (ABNORMAL) POCT glucose meter (11/07/2024 8:20 AM EDT) [facility] POCT Glucose 137(H) 74 - 99 mg/dL 11/07/2024 8:22 AM EDT [facility]ARE LAB Comment:Accuracy of a [...] Comment 11/07/2024 8:22 AM EDT [facility]ALTHCARE LAB Chemical Processor ID Estefani Sheth 11/07/2024 8:22 AM EDT [facility] Device ID [id number] 11/07/2024 8:22 AM EDT HEALTHCARE LAB Specimen Type POC Capillary 11/07/2024 8:22 AM EDT [facility] Blood Capillary blood specimen / Unknown 11/07/2024 8:20 AM EDT 11/07/2024 8:22 AM EDT Nathaly Nowak MD LAB POINT OF CARE TE ST DOCKED DEVICE UNSOLICITED RESULTS Final Result [facility] [address] [place] [address] * (ABNORMAL) POCT glucose meter (11/07/2024 7:21 AM EDT) [facility] POCT Glucose 151(H) 74 - 99 mg/dL 11/07/2024 7:22 AM EDT [facility]ALTH[facility]ARE LAB Comment:Accuracy of [...] Comment 11/07/2024 7:22 AM EDT [facility]ALTH[facility]ARE [facility] Chemical Processor ID Brigitte Castellon 11/07/2024 7:22 AM EDT HEALTHCARE LAB Device ID [id number] 11/07/2024 7:22 AM EDT [facility]ARE LAB Specimen Type POC Capillary 11/07/2024 7:22 AM EDT [facility] Blood Capillary blood specimen / Unknown 11/07/2024 7:21 AM EDT 11/07/2024 7:22 AM EDT Nathaly Nowak MD LAB POINT OF CARE TE ST DOCKED DEVICE UNSOLICITED RESULTS Final Result Performing Organization Address City/[facility]/ZIP Co de Phone Number [facility] [address] [place] [address] * (ABNORMAL) POCT glucose meter (11/07/2024 6:25 [...] Comment 11/07/2024 6:27 AM EDT [facility] Chemical Processor ID Nelda Gerber 11/08/19 6:27 AM EDT HEALTHCARE LAB Device ID [id number] 11/07/2024 6:27 AM EDT [facility]ARE LAB Specimen Type POC Capillary 11/07/2024 6:27 AM EDT [facility] Blood Capillary blood specimen / Unknown 11/07/2024 6:25 AM EDT 11/07/2024 6:27 AM EDT us Nathaly Nowak MD LAB POINT OF CARE TE ST DOCKED DEVICE UNSOLICITED RESULTS Final Result Performing Organization Address City/[facility]/ZIP Co de Phone Number [facility] [address] [place] [address] * (ABNORMAL) POCT glucose meter (11/07/2024 5:03 [...] Comment 11/07/2024 5:08 AM EDT [facility]ALTH[facility]ARE LAB Chemical Processor ID Nelda Gerber 11/08/19 5:08 AM EDT [facility] Device ID [id number] 11/07/2024 5:08 AM EDT [facility] Specimen Type POC Capillary 11/07/2024 5:08 AM EDT [facility]ALTH[facility] LAB Blood Capillary blood specimen / Unknown 11/07/2024 5:03 AM EDT 11/07/2024 5:08 AM EDT us Nathaly Nowak MD LAB POINT OF CARE TE ST DOCKED DEVICE UNSOLICITED RESULTS Final Result Performing Organization Address City/State/[facility] Co de Phone Number [facility] [address] [place] [address] * (ABNORMAL) POCT glucose meter (11/07/2024 4:16 AM EDT) [facility] Signature POCT Glucose 142(H) 74 - 99 mg/dL 11/07/2024 4:18 AM EDT [facility] Comment:Accuracy of a glucos e result [...] for testing. Comment 11/07/2024 4:18 AM EDT [facility] Chemical Processor ID Nelda Gerber 11/08/19 4:18 AM EDT [facility] Device ID [id number] 11/07/2024 4:18 AM EDT [facility] Specimen Type POC Capillary 11/07/2024 4:18 AM EDT [facility] Blood Capillary blood specimen / Unknown 11/07/2024 4:16 AM EDT 11/07/2024 4:18 AM EDT us Nathaly Nowak MD LAB POINT OF CARE TE ST DOCKED DEVICE UNSOLICITED RESULTS Final Result Performing Organization Address City/[facility]/ZIP Co de Phone Number [facility]ARE [facility] [address] [place] [address] * (ABNORMAL) POCT glucose meter (11/07/2024 3:21 [...] for testing. Comment 11/07/2024 3:23 AM EDT [facility] Chemical Processor ID Nelda Gerber 11/08/19 3:23 AM EDT [facility] Device ID [id number] 11/07/2024 3:23 AM EDT [facility] Specimen Type POC Capillary 11/07/2024 3:23 AM EDT [facility] Blood Capillary blood specimen / Unknown 11/07/2024 3:21 AM EDT 11/07/2024 3:23 AM EDT us Nathaly Nowak MD LAB POINT OF CARE TE ST DOCKED DEVICE UNSOLICITED RESULTS Final Result Performing Organization Address City/[facility]/ZIP Co de Phone Number [facility] [address] [place] [address] * (ABNORMAL) POCT glucose meter (11/07/2024 2:10 AM EDT) POCT Glucose 146(H) 74 - [...] Comment 11/07/2024 2:12 AM EDT HEALTHCARE LAB Chemical Processor ID Nelda Gerber 11/08/19 2:12 AM EDT HEALTHCARE LAB Device ID [id number] 11/07/2024 2:12 AM EDT [facility] LAB Specimen Type POC Capillary 11/07/2024 2:12 AM EDT [facility] Blood Capillary blood specimen / Unknown 11/07/2024 2:10 AM EDT 11/07/2024 2:12 AM EDT Nathaly Nowak MD LAB POINT OF CARE TE ST DOCKED DEVICE UNSOLICITED RESULTS Final Result Performing Organization Address [facility] Co de Phone Number [facility]ARE LAB [address] [place] [address] * (ABNORMAL) POCT glucose meter (11/07/2024 1:08 AM EDT) POCT Glucose 135(H) 74 - 99 mg/dL 11/07/2024 1:10 AM EDT [facility]ALTH[facility] LAB Comment:Accuracy of a [...] Comment 11/07/2024 1:10 AM EDT [facility]ALTH[facility]ARE LAB Chemical Processor ID Nelda Gerber 11/08/19 1:10 AM EDT HEALTHCARE LAB Device ID [id number] 11/07/2024 1:10 AM EDT [facility]ARE LAB Specimen Type POC Capillary 11/07/2024 1:10 AM EDT [facility] LAB Blood Capillary blood specimen / Unknown 11/07/2024 1:08 AM EDT 11/07/2024 1:10 AM EDT Nathaly Nowak MD LAB POINT OF CARE TE ST DOCKED DEVICE UNSOLICITED RESULTS Final Result Performing Organization Address City/[facility]/ZIP Co de Phone Number [facility]ARE [facility] [address] [place] [address] * (ABNORMAL) POCT glucose meter (11/07/2024 12:10 AM EDT) Pathologist [facility] POCT Glucose 127(H) 74 - 99 mg/dL [...] Comment 11/07/2024 12:13 AM EDT HEALTHCARE LAB Chemical Processor ID Nelda Gerber 11/08/19 12:13 AM EDT [employer] [facility] Device ID [id number] 11/07/2024 12:13 AM EDT HEALTHCARE LAB Specimen Type POC Capillary 11/07/2024 12:13 AM EDT [facility] Blood Capillary blood specimen / Unknown 11/07/2024 12:10 AM EDT 11/07/2024 12:13 AM EDT us Nathaly Nowak MD LAB POINT OF CARE TE ST DOCKED DEVICE UNSOLICITED RESULTS Final Result Performing Organization Address City/State/[facility] Co de Phone Number [facility]ALTHCARE LAB [address] [place] [address] * (ABNORMAL) POCT glucose meter (11/06/2024 11:14 PM EDT) [facility] POCT Glucose 71(L) 74 - 99 mg/dL 11/06/2024 11:16 PM EDT [facility] Comment:Accuracy of [...] 11/06/2024 11:16 PM EDT [facility] Chemical Processor ID Nelda Gerber 11/07/19 11:16 PM EDT [facility] Device ID [id number] 11/06/2024 11:16 PM EDT [facility] Specimen Type POC Capillary 11/06/2024 11:16 PM EDT [facility]ALTH[facility] LAB Blood Capillary blood specimen / Unknown 11/06/2024 11:14 PM EDT 11/06/2024 11:16 PM EDT Nathaly Nowak MD LAB POINT OF CARE TE ST DOCKED DEVICE UNSOLICITED RESULTS Final Result [facility] [address] [place] [address] * (ABNORMAL) POCT glucose meter (11/06/2024 10:07 [...] Comment 11/06/2024 10:09 PM EDT [facility]ALTH[facility]ARE LAB Chemical Processor ID Nelda Gerber 11/07/19 10:09 PM EDT HEALTHCARE LAB Device ID [id number] 11/06/2024 10:09 PM EDT [facility] Specimen Type POC Capillary 11/06/2024 10:09 PM EDT [facility] Blood Capillary blood specimen / Unknown 11/06/2024 10:07 PM EDT 11/06/2024 10:09 PM EDT Nathaly Nowak MD LAB POINT OF CARE TE ST DOCKED DEVICE UNSOLICITED RESULTS Final Result [facility] [address] [place] [address] * (ABNORMAL) POCT glucose meter (11/06/2024 8:22 [...] for testing. Comment 11/06/2024 8:25 PM EDT [facility]ALTH[facility]ARE LAB Chemical Processor ID Nelda Gerber 11/07/19 8:25 PM EDT HEALTHCARE LAB Device ID [id number] 11/06/2024 8:25 PM EDT [facility] LAB Specimen Type POC Capillary 11/06/2024 8:25 PM EDT [facility] Blood Capillary blood specimen / Unknown 11/06/2024 8:22 PM EDT 11/06/2024 8:25 PM EDT us Nathaly Nowak MD LAB POINT OF CARE TE ST DOCKED DEVICE UNSOLICITED RESULTS Final Result Performing Organization Address City/State/[facility] Co de Phone Number [facility]ARE LAB [address] [place] [address] * (ABNORMAL) POCT glucose meter (11/06/2024 7:31 PM EDT) [facility] POCT Glucose 359(H) 74 - 99 [...] Comment 11/06/2024 7:32 PM EDT [facility]ALTH[facility] Chemical Processor ID Nelda Gerber 11/07/19 7:32 PM EDT HEALTHCARE LAB Device ID [id number] 11/06/2024 7:32 PM EDT [facility]ARE LAB Specimen Type POC Capillary 11/06/2024 7:32 PM EDT [facility] Blood Capillary blood specimen / Unknown 11/06/2024 7:31 PM EDT 11/06/2024 7:32 PM EDT us Nathaly Nowak MD LAB POINT OF CARE TE ST DOCKED DEVICE UNSOLICITED RESULTS Final Result Performing Organization Address City/[facility]/ZIP Co de Phone Number [facility]ALTH[facility]ARE [facility] [address] [place] [address] * (ABNORMAL) POCT glucose meter (11/06/2024 6:15 PM EDT) [facility] POCT Glucose 368(H) 74 - 99 mg/dL 11/06/2024 6:17 PM EDT [facility]ALTH[facility] LAB Comment:Accuracy of a [...] for testing. Comment 11/06/2024 6:17 PM EDT [facility] Chemical Processor ID Estefani Sheth 11/06/2024 6:17 PM EDT [facility] Device ID [id number] 11/06/2024 6:17 PM EDT [facility] Specimen Type POC Capillary 11/06/2024 6:17 PM EDT [facility] Blood Capillary blood specimen / Unknown 11/06/2024 6:15 PM EDT 11/06/2024 6:17 PM EDT Nathaly Nowak MD LAB POINT OF CARE TE ST DOCKED DEVICE UNSOLICITED RESULTS Final Result Performing Organization Address City/[facility] Co de Phone Number HEALTHCARE LAB [address] [place] [address] * (ABNORMAL) POCT glucose meter (11/06/2024 4:57 PM EDT) [facility] POCT Glucose 417(H) 74 - 99 mg/dL [...] 11/06/2024 4:58 PM EDT [facility] Chemical Processor ID Estefani Sheth 11/06/2024 4:58 PM EDT HEALTHCARE LAB Device ID [id number] 11/06/2024 4:58 PM EDT [facility]ALTH[facility]ARE LAB Specimen Type POC Capillary 11/06/2024 4:58 PM EDT [facility] LAB Blood Capillary blood specimen / Unknown 11/06/2024 4:57 PM EDT 11/06/2024 4:58 PM EDT Nathaly Nowak MD LAB POINT OF CARE TE ST DOCKED DEVICE UNSOLICITED RESULTS Final Result Performing Organization Address City/[facility]/ZIP Co de Phone Number [facility]ARE [facility] [address] [place] [address] * (ABNORMAL) POCT glucose meter (11/06/2024 2:08 PM EDT) POCT Glucose 253(H) 74 - 99 mg/dL 11/06/2024 2:09 PM EDT [facility]ALTH[facility] LAB Comment:Accuracy of a [...] Comment 11/06/2024 2:09 PM EDT [facility]ALTH[facility]ARE LAB Chemical Processor ID Brigitte Castellon 11/06/2024 2:09 PM EDT HEALTHCARE LAB Device ID [id number] 11/06/2024 2:09 PM EDT [facility]ALTH[facility]ARE LAB Specimen Type POC Capillary 11/06/2024 2:09 PM EDT [facility] LAB Blood Capillary blood specimen / Unknown 11/06/2024 2:08 PM EDT 11/06/2024 2:09 PM EDT Nathaly Nowak MD LAB POINT OF CARE TE ST DOCKED DEVICE UNSOLICITED RESULTS Final Result Performing Organization Address City/[facility]/ZIP Co de Phone Number [facility]ALTH[facility]ARE [facility] [address] [place] [address] * (ABNORMAL) POCT glucose meter (11/06/2024 12:27 [...] Comment 11/06/2024 12:28 PM EDT HEALTHCARE LAB Chemical Processor ID Jacinta Galloway 11/06/2024 12:28 PM EDT HEALTHCARE LAB Device ID [id number] 11/06/2024 12:28 PM EDT [facility]ALTH[facility]ARE LAB Specimen Type POC Capillary 11/06/2024 12:28 PM EDT [facility] Blood Capillary blood specimen / Unknown 11/06/2024 12:27 PM EDT 11/06/2024 12:28 PM EDT us Nathaly Nowak MD LAB POINT OF CARE TE ST DOCKED DEVICE UNSOLICITED RESULTS Final Result [facility] [address] [place] [address] * (ABNORMAL) Fungal Culture, Tissue and ISIDRO (11/06/2024 11:34 AM EDT) [facility] Culture Reading Mycological 4 Weeks Rare [place] Sana parapsilosis (A) 12/05/2024 8:36 AM EDT [facility] Comment: This isolate has been identified using the FDA Approved [employer] [place] System The organism value for this result has been updated. These results have been appended to the previously preliminary verified report. Edited result: Previously reported as Yeast on 11/11/2024 at 1317 EDT. ISIDRO No fungal elements seen 12/05/2024 8:36 AM EDT [facility] Tissue Topography unknown / Unknown 11/06/2024 [...] with ANGÉLICA values reported for remaining results. us Nathaly Nowak MD LAB MICROBIOLOGY - GENERAL ORDE [facility] Final Result [facility] [address] [place] [address] * (ABNORMAL) Tissue Culture and Gram Stain (11/06/2024 11:34 AM EDT) Culture Moderate Growth 7:35 AM EDT [facility] Culture 2+ Enterobacter cloacae complex(A) ANGÉLICA 11/15/2024 7:35 AM EDT [facility] Comment: This isolate has been identified using the FDA Approved [employer] [place] System The organism value for this result has been updated. These results have been appended to the previously preliminary verified report. Edited result: Previously reported as Gram Negative Jesus on 11/07/2024 at 1434 EDT. Culture 2+ Streptococcus mitis/oralis group(A) ANGÉLICA 11/15/2024 7:35 AM EDT [facility] Comment: This isolate has been identified using the FDA Approved [employer] [place] System The organism value for this result has been updated. These results have been appended to the previously preliminary verified report. Culture 2+ Pasteurella stomatis(A) ANGÉLICA 11/15/2024 7:35 AM EDT [facility] Comment: This result was determined by [employer] tof mass spectrometry using the [employer] database and is for research use only. The organism value for this result has been updated. These results have been appended to the previously preliminary verified report. Gram Stain Result Few Gram negative rods(A) 11/15/2024 7:35 AM EDT [facility] Gram Stain Result Moderate Polymorphonuclear leukocytes(A) 11/15/2024 7:35 AM EDT [facility] Gram Stain Result Few Gram positive cocci in pairs(A) 11/15/2024 7:35 AM EDT [facility] Tissue Topography unknown / Unknown 11/06/2024 11:34 AM EDT 11/06/2024 12:18 PM EDT Comment:Pre-op diagnosis: Surgical wound infection [T81.49XA] Narrative [facility] - 11/15/2024 7:35 AM EDT PharmD [...] GENERAL ORDAna FRITZ Edited Result - Final [facility] [address] [place] [address] * (ABNORMAL) Anaerobic Culture (11/06/2024 11:34 AM EDT) Culture No anaerobes isolated 11/14/2024 1:25 PM EDT [facility] Culture Staphylococcus pseudintermedius( A) 11/14/2024 1:25 PM EDT [facility] Comment: This result was determined by MALDI tof mass spectrometry using the [employer] database and is for research use only. This is an appended report. These results have been appended to a previously final verified report. Tissue Topography unknown / Unknown 11/06/2024 11:34 AM EDT 11/06/2024 12:18 PM EDT Comment:Pre-op diagnosis: Surgical wound infection [T81.49XA] Narrative [facility] - 11/14/2024 1:25 PM EDT Mixed [...] GENERAL ORDE LAM Edited Result - Final [facility] [address] [place] [address] * (ABNORMAL) Routine Culture and Gram Stain (11/06/2024 11:29 AM EDT) Culture Moderate Growth 5:29 PM EDT [facility] Culture Enterobacter cloacae complex(A) 11/08/2024 5:29 PM EDT [facility] Comment: This isolate has been identified using the FDA Approved [employer] [place] System For susceptibility results refer to: - [id number] The organism value for this result has been updated. These results have been appended to the previously preliminary verified report. Gram Stain Result No polymorphonuclear leukocytes seen 11/08/2024 5:29 PM EDT [facility] Gram Stain Result No organisms seen 11/08/2024 5:29 PM EDT [facility] Swab Topography unknown / Unknown 11/06/2024 11:29 AM EDT 11/06/2024 12:19 PM EDT Comment:Pre-op diagnosis: Surgical wound infection [T81.49XA] Nathaly Nowak MD LAB MICROBIOLOGY - GENERAL ORDE LAM Final Result Performing Organization Address [facility] [place] [address] * Fungal Culture, Routine (11/06/2024 11:29 AM EDT) Culture No Fungal Growth at 1 Week 11/13/2024 8:[address] [facility] Swab Topography unknown / Unknown 11/06/2024 11:29 AM EDT 11/06/2024 12:19 PM EDT Comment:Pre-op diagnosis: Surgical wound infection [T81.49XA] Nathaly Nowak MD LAB MICROBIOLOGY - GENERAL HUXFORDAna FRITZ Final Result Performing Organization Address [facility] [place] [address] * (ABNORMAL) Anaerobic Culture (11/06/2024 11:29 AM EDT) Culture No anaerobes isolated 11/14/2024 1:25 PM EDT [facility] Culture Streptococcus mitis/oralis group(A) 11/14/2024 1:25 PM EDT [facility] Comment: This result was determined by MALDI tof mass spectrometry using the [employer] database and is for research use only. The organism value for this result has been updated. These results have been appended to the previously preliminary verified report. This is a corrected result. Previous organism was Mixed skin clifton on 11/10/2024 at 0718 EDT. Culture Staphylococcus pseudintermedius( A) 11/14/2024 1:25 PM EDT [facility] Comment: This isolate has been identified using the FDA Approved [employer] CA System This is an appended report. These results have been appended to a previously final verified report. Swab Topography unknown / Unknown 11/06/2024 11:29 AM EDT 11/06/2024 12:19 PM EDT Comment:Pre-op diagnosis: Surgical wound infection [T81.49XA] Narrative [facility] - 11/14/2024 1:25 PM EDT Mixed [...] GENERAL ORDE LAM Edited Result - Final [facility] [address] [place] [address] * Routine Culture and Gram Stain (11/06/2024 11:28 AM EDT) Culture No growth at day 4 2024 11:24 AM EDT [facility] Gram Stain Result No organisms seen 11/10/2024 11:24 AM EDT [facility] Gram Stain Result No polymorphonuclear leukocytes seen 11/10/2024 11:24 AM EDT [facility] Swab Topography unknown / Unknown 11/06/2024 11:28 AM EDT 11/06/2024 12:20 PM EDT Comment:Pre-op diagnosis: Surgical wound infection [T81.49XA] Nathaly Nowak MD LAB MICROBIOLOGY - GENERAL ATIYA FRITZ Final Result Performing Organization Address City/[facility] [place] [address] * Fungal Culture, Routine (11/06/2024 11:28 AM EDT) Culture No Fungal Growth at 1 Week 11/13/2024 8:29 AM EDT [facility] Swab Topography unknown / Unknown 11/06/2024 11:28 AM EDT 11/06/2024 12:20 PM EDT Comment:Pre-op diagnosis: Surgical wound infection [T81.49XA] Result [facility] Nathaly Nowak MD LAB MICROBIOLOGY - GENERAL ATIYA FRITZ Final Result Performing Organization Address [facility] [place] [address] * Anaerobic Culture (11/06/2024 11:28 AM EDT) Culture No growth at day 4 11/13/2024 12:53 PM EDT [facility] Swab Topography unknown / Unknown 11/06/2024 11:28 AM EDT 11/06/2024 12:20 PM EDT Comment:Pre-op diagnosis: Surgical wound infection [T81.49XA] Nathaly Nowak MD LAB MICROBIOLOGY - GENERAL ATIYA FRITZ Final Result Performing Organization Address City/[facility] Co de Phone Number [facility] [address] [place] [address] * (ABNORMAL) POCT glucose meter (11/06/2024 10:16 AM EDT) POCT Glucose 194(H) 74 - 99 mg/dL 11/06/2024 10:18 AM EDT [facility] Comment:Accuracy of a glucos e [...] Comment 11/06/2024 10:18 AM EDT [facility] Chemical Processor ID Lacy Griffin 11/07/19 10:18 AM EDT [facility] LAB Device ID [id number] 11/06/2024 10:18 AM EDT [facility] Specimen Type POC Capillary 11/06/2024 10:18 AM EDT [facility] Blood Capillary blood specimen / Unknown 11/06/2024 10:16 AM EDT 11/06/2024 10:18 AM EDT us Nathaly Nowak MD LAB POINT OF CARE TE ST DOCKED DEVICE UNSOLICITED RESULTS Final Result Performing Organization Address City/[facility]/ZIP Co de Phone Number [facility] [address] [place] [address] * (ABNORMAL) POCT glucose meter (11/06/2024 5:58 AM EDT) [facility] POCT Glucose 182(H) 74 - 99 mg/dL 11/06/2024 6:01 AM EDT [facility] Comment:Accuracy of a [...] Comment 11/06/2024 6:01 AM EDT [facility] Chemical Processor ID Raj Laird 11/07/19 6:01 AM EDT HE[facility]ARE LAB Device ID [id number] 11/06/2024 6:01 AM EDT [facility] Specimen Type POC Capillary 11/06/2024 6:01 AM EDT [facility] Blood Capillary blood specimen / Unknown 11/06/2024 5:58 AM EDT 11/06/2024 6:01 AM EDT us Nathaly Nowak MD LAB POINT OF CARE TE ST DOCKED DEVICE UNSOLICITED RESULTS Final Result [facility] [address] [place] [address] * (ABNORMAL) POCT glucose meter (11/06/2024 5:36 AM EDT) POCT Glucose 202(H) 74 - 99 mg/dL 11/06/2024 5:38 AM EDT [facility] Comment:Accuracy of a [...] Comment 11/06/2024 5:38 AM EDT [facility] Chemical Processor ID Shahid Sanches 11/06/2024 5:38 AM EDT [facility] Device ID [id number] 11/06/2024 5:38 AM EDT [facility] Specimen Type POC Capillary 11/06/2024 5:38 AM EDT [facility] Blood Capillary blood specimen / Unknown 11/06/2024 5:36 AM EDT 11/06/2024 5:38 AM EDT Nathaly Nowak MD LAB POINT OF CARE TE ST DOCKED DEVICE UNSOLICITED RESULTS Final Result [facility] [address] [place] [address] * (ABNORMAL) Hemoglobin A1c (11/06/2024 1:07 AM EDT) Pathologist [facility] Hemoglobin A1c 7.6(H) <5.7 % 11/06/2024 11:09 AM EDT [facility] Blood Venous blood specimen / Unknown Venipuncture / Unknown 11/06/2024 1:07 AM EDT 11/06/2024 1:26 AM EDT Narrative [facility] - 11/06/2024 11:09 AM EDT HA1C Interpretive Data: Diagnosis of Diabetes: Diabetic > or = 6.5% Pre-diabetic 5.7 to 6.4% Non-diabetic < or = 5.6% Glycemic Targets for Type I and Type II Diabetics: Non- Adults <7.0% Adults <6.0% Children and Adolescents <7.5% Source: [place] [employer]. Standards of medical care in diabetes,2017. Diabetes Care.2017:40 (suppl 1):S1-S135. Result [facility] Nathaly Nowak MD LAB BLOOD ORDERABLES Final Resu lt Performing Organization Address [facility] Co de Phone Number [facility] [address] [place] [address] * Blood Culture (Aerobic/Anaerobet Set) (11/06/2024 1:07 AM EDT) Culture No growth at day 5 11/11/2024 2:49 AM EDT [facility] Blood Structure of right hand / Unknown Venipuncture / Unknown 11/06/2024 1:07 AM EDT 11/06/2024 2:36 AM EDT Nathaly Nowak MD LAB MICROBIOLOGY - GENERAL ORDE RABONEIDA Final Result Performing Organization Address [facility] Co de Phone Number [facility] [address] [place] [address] * Blood Culture (Aerobic/Anaerobet Set) (11/06/2024 1:07 AM EDT) Culture No growth at day 5 11/11/2024 3:01 AM EDT [facility] Blood Structure of antecubital vein / Unknown Venipuncture / Unknown 11/06/2024 1:07 AM EDT 11/06/2024 2:36 AM EDT Result [facility] Nathaly Nowak MD LAB MICROBIOLOGY - GENERAL ORDE RABONEIDA Final Result Performing Organization Address [facility] Co de Phone Number [facility] [address] [place] [address] * (ABNORMAL) Basic metabolic panel (11/06/2024 1:07 AM EDT) Glucose, Plasma 207(H) 74 - 99 mg/dL 11/06/2024 1:41 AM EDT [facility] BUN, Plasma 20 8 - 23 mg/dL 11/06/2024 1:41 AM EDT [facility] Creatinine, Plasma 0.92 0.70 - 1.20 mg/dL 11/06/2024 1:41 AM EDT [facility] BUN/Creatinine Ratio 22 11/06/2024 1:41 AM EDT [facility] Sodium, Plasma 136 136 - 145 mmol/L 11/06/2024 1:41 AM EDT [facility] Potassium, Plasma 4.5 3.6 - 4.9 mmol/L 11/06/2024 1:41 AM EDT [facility] Chloride, Plasma 104 97 - 107 mmol/L 11/06/2024 1:41 AM EDT [facility] CO2, Plasma 22 22 - 29 mmol/L 11/06/2024 1:41 AM EDT [facility] Anion Gap 10 6 - 16 mmol/L 11/06/2024 1:41 AM EDT [facility] Total Calcium, Plasma 9.0 8.9 - 10.2 mg/dL 11/06/2024 1:41 AM EDT [facility] eGFRcr 92.3 mL/min/1.7 3m*2 11/06/2024 1:41 AM EDT [facility] Comment:Reported eGFRcr in m L/min/1.73m2 is based the CKD-EPI 2020 equation that does not use a race coefficient. Blood Venous blood specimen / Unknown Venipuncture / Unknown 11/06/2024 1:07 AM EDT 11/06/2024 1:12 AM EDT us Nathaly Nowak MD LAB BLOOD ORDERABLES Final Resu lt [facility] [address] [place] [address] * Phosphorus (11/06/2024 1:07 AM EDT) Phosphorus, Plasma 3.2 2.5 - 4.5 mg/dL 11/06/2024 1:41 AM EDT [facility] Blood Venous blood specimen / Unknown Venipuncture / Unknown 11/06/2024 1:07 AM EDT 11/06/2024 1:12 AM EDT us Nathaly Nowak MD LAB BLOOD ORDERABLES Final Resu lt Performing Organization Address City/[facility]/ZIP Co de Phone Number [facility] [address] [place] [address] * Magnesium (11/06/2024 1:07 AM EDT) Magnesium, Plasma 2.2 1.9 - 2.4 mg/dL 11/06/2024 1:41 AM EDT [facility] Blood Venous blood specimen / Unknown Venipuncture / Unknown 11/06/2024 1:07 AM EDT 11/06/2024 1:12 AM EDT us Nathaly Nowak MD LAB BLOOD ORDERABLES Final Resu lt Performing Organization Address [facility] Co de Phone Number [facility] [address] [place] [address] * (ABNORMAL) CBC (11/06/2024 1:07 AM EDT) WBC Count 9.70 3.70 - 10.30 10*3/uL LAB HEMATOLOGY METHOD 11/06/2024 1:19 AM EDT [facility] RBC Count 2.89(L) 4.60 - 6.10 10*6/uL LAB HEMATOLOGY METHOD 11/06/2024 1:19 AM EDT [facility] HGB 8.8(L) 13.7 - 17.5 g/dL LAB HEMATOLOGY METHOD 11/06/2024 1:19 AM EDT [facility] HCT 26.2(L) 40.0 - 51.0 % LAB HEMATOLOGY METHOD 11/06/2024 1:19 AM EDT [facility] Platelet Count 542(H) 155 - 369 10*3/uL LAB HEMATOLOGY METHOD 11/06/2024 1:19 AM EDT [facility] MCV 91 79 - 98 fL LAB HEMATOLOGY METHOD 11/06/2024 1:19 AM EDT [facility] MCH 30.4 26.0 - 32.0 pg LAB HEMATOLOGY METHOD 11/06/2024 1:19 AM EDT [facility] MCHC 33.6 30.7 - 35.5 g/dL LAB HEMATOLOGY METHOD 11/06/2024 1:19 AM EDT [facility] RDW 13.2 11.5 - 14.5 % LAB HEMATOLOGY METHOD 11/06/2024 1:19 AM EDT [facility] MPV 8.7(L) 8.8 - 12.5 fL LAB HEMATOLOGY METHOD 11/06/2024 1:19 AM EDT [facility] nRBC 0.0 <=0.0 per 100 WBCs LAB HEMATOLOGY METHOD 11/06/2024 1:19 AM EDT [facility] Blood Venous blood specimen / Unknown Venipuncture / Unknown 11/06/2024 1:07 AM EDT 11/06/2024 1:12 AM EDT us Nathaly Nowak MD LAB BLOOD ORDERABLES Final Resu lt Performing Organization Address City/[facility]/ZIP Co de Phone Number [facility] [address] [place] [address] * Gold Top (11/06/2024 12:58 AM EDT) Extra Hold for add-ons 11/06/2024 3:21 AM EDT [facility] Comment:Auto resulted. Blood Venous blood specimen / Unknown 11/06/2024 12:58 AM EDT 11/06/2024 1:13 AM EDT us Nathaly Nowak MD LAB BLOOD ORDERABLES Final Resu lt [facility] [address] [place] [address] * Gold Top (11/06/2024 12:58 AM EDT) Extra Hold for add-ons 11/06/2024 3:21 AM EDT [facility] Comment:Auto resulted. Blood Venous blood specimen / Unknown 11/06/2024 12:58 AM EDT 11/06/2024 1:13 AM EDT us Nathaly Nowak MD LAB BLOOD ORDERABLES Final Resu lt Performing Organization Address City/[facility]/ZIP Co de Phone Number [facility] [address] [place] [address] * Light Green Top (11/06/2024 12:58 AM EDT) Extra Hold for add-ons 11/06/2024 3:21 AM EDT [facility] Comment:Auto resulted. Blood Venous blood specimen / Unknown 11/06/2024 12:58 AM EDT 11/06/2024 1:13 AM EDT us Nathaly Nowak MD LAB BLOOD ORDERABLES Final Resu lt Performing Organization Address [facility] Co de Phone Number [facility] [address] [place] [address] * Light Blue Top (11/06/2024 12:58 AM EDT) Extra Hold for add-ons 11/06/2024 3:21 AM EDT [facility] Comment:Auto resulted. Blood Venous blood specimen / Unknown 11/06/2024 12:58 AM EDT 11/06/2024 1:13 AM EDT us Nathaly Nowak MD LAB BLOOD ORDERABLES Final Resu lt Performing Organization Address [facility] Co de Phone Number [facility] [address] [place] [address] * Light Blue Top (11/06/2024 12:58 AM EDT) Extra Hold for add-ons 11/06/2024 3:21 AM EDT [facility] Comment:Auto resulted. Blood Venous blood specimen / Unknown 11/06/2024 12:58 AM EDT 11/06/2024 1:13 AM EDT us Nathaly Nowak MD LAB BLOOD ORDERABLES Final Resu lt Performing Organization Address City/[facility]/ZIP Co de Phone Number [facility] [address] [place] [address] * (ABNORMAL) POCT glucose meter (11/06/2024 12:45 AM EDT) POCT Glucose 204(H) 74 - 99 mg/dL 11/06/2024 12:48 AM EDT [facility] Comment:Accuracy of [...] Comment 11/06/2024 12:48 AM EDT [facility] Chemical Processor ID Raj Laird 11/07/19 12:48 AM EDT [facility] LAB Device ID [id number] 11/06/2024 12:48 AM EDT [facility] Specimen Type POC Capillary 11/06/2024 12:48 AM EDT [facility] Blood Capillary blood specimen / Unknown 11/06/2024 12:45 AM EDT 11/06/2024 12:48 AM EDT Nathaly Nowak MD LAB POINT OF CARE TE ST DOCKED DEVICE UNSOLICITED RESULTS Final Result [facility] [address] [place] [address] documented in this encounter Visit Diagnoses Diagnosis [...] Bag 11/14/2024 9:30 AM EDT 1 g 22 0 mL/hr New Bag 11/13/2024 8:39 AM EDT [...] Yadira 11/07/24 at 2000, Until Discontinued, Routine Given 11/12/2024 [...] needed, Starting on Mon11/06/24 at 0031, Until [facility] 11/14/24 at 1804, Routine, line care [...] needed, Starting on Mon11/06/24 at 0753, Until [facility] 11/14/24 at 1804, Routine, On Unit - Preprocedure, line care sodium chloride 0.9 % flush 10 mL 10 mL, Intravenous, Every 12 hours, First dose on [facility] 11/09/24 at 1515, Until Discontinued, Routine Given 11/14/2024 2:42 PM EDT 10 mL Given 11/14/2024 3:03 AM EDT 10 mL Given 11/13/2024 4:43 PM EDT 10 mL Sodium Hypochlorite (Dakin's (HALF-Strength)) external solution 1 Application Irrigation, Daily, First dose on [facility] 11/09/24 at 0945, Until Discontinued, Routine Given 11/11/2024 [...] refused) 0518 (Not Given - Provider: Jonathan K Hickey, RN - Reason: Order parameters not met)1210 [...] 2125 (Given - Provider: Jonathan Vale RN) 203 (Given - Provider: Jonathan Vale RN) insulin lispro (Admelog) 100 units/mL injection - Correction - Resistant Dose 0-10 Units, Subcutaneous, 3 times daily with meals, First dose on Mon11/07/24 at 0945, Until Discontinued, Routine 0917 (Not Given - Provider: Devora Bo - Reason: Order parameters not met - Comment: [phone] (Given - Provider: Devora Bo)1806 (Given - Provider: Devora Kahn Bo) 0839 (Given - Provider: Devora Camarenab)1226 (Not Given - Provider: Devora Camarenab - Reason: Order parameters not met - Comment: [phone] (Not Given - Provider: Devora Camarenab - Reason: Order parameters not met) 0856 [...] 0856 (Given - Provider: Yazmin Bhatt, CHRISTIAN) methocarbamol (Robaxin) tablet 500 mg 500 mg, Oral, 4 times daily, First dose on Mon11/06/24 at 0200, Until Discontinued, Routine 0938 (Given - Provider: Devora Bo)1356 (Given - Provider: Devora Bo)1805 (Given - Provider: Devora Bo)212 (Given - Provider: Jonathan Vale RN) 0838 (Given - Provider: Devora Bo)1317 (Given - Provider: Devora Bo)1753 (Given - Provider: Devoar Bo)203 (Given - Provider: Jonathan Vale RN) 0856 (Given - Provider: Yazmin Bhatt RN)1354 (Given - Provider: Yazmin Bhatt RN)1800 (Canceled Entry - Provider: Automatic Discharge Provider - Comment: Automatically canceled at discontinue of medication order) metoprolol tartrate (Lopressor) tablet 100 mg 100 mg, Oral, 2 times daily, First dose on Mon11/06/24 at 0040, Until Discontinued, Routine 0938 (Given - Provider: Devora Bo)2122 (Given - Provider: Jonathan Vale RN) 0838 (Given - Provider: Devora Bo)203 (Given - Provider: Jonathan Vale RN) 0856 (Given - Provider: Yazmin Bhatt RN) metroNIDAZOLE (Flagyl) tablet 500 mg (CANCELED) 500 mg, Oral, 3 times daily, First dose on Mon11/07/24 at 2000, Until Discontinued, Routine 0940 (Given - Provider: Devora Bo)1805 (Given - Provider: Devora Bo)212 (Given - Provider: Jonathan Vale RN) micafungin [...] times daily, 10 doses, First dose on 11/09/24 at 2100, Last dose on Mon11/14/24 at 0900, Routine 09 (Given - Provider: Devora Bo)2124 (Given - Provider: Jonathan Vale RN) 0840 (Not Given - Provider: Devora Bo - Reason: Patient/family refused)2031 (Given - Provider: Jonathan Vale RN) 0856 (Given - Provider: Yazmin Bhatt RN) NIFEdipine XL (Procardia XL) 24 hr tablet 30 mg 30 mg, Oral, Daily, First dose on Yadira 11/14/24 at 1015, Until Discontinued, Routine 09 (Given - Provid er: Yazmin Bhatt RN) oxyCODONE (Roxicodone) immediate release tablet 5 mg (COMPLETED) 5 mg, Oral, Once, 1 dose, On Mon11/13/24 at 1615, Routine 1528 (Given - Provider: Devora Bo) oxyCODONE (Roxicodone) immediate release tablet 5 mg (COMPLETED) 5 mg, Oral, 15 MIN PRIOR PROCEDURE, 1 dose, Starting on Mon11/14/24 at 1305, Until Yadira 11/14/24 at 1402, Routine 140 (Given - Provid er: Yazmin Bhatt RN) [...] Discontinued, Routine 0938 (Given - Provider: Devora Bo)2122 (Given - Provider: Jonathan aVle RN) 0838 (Given - Provider: Devora Bo)2031 [...] - Preprocedure 0939 (Given - Provider: Devora Bo)2125 (Given - Provider: Jonathan Vale RN) 0840 (Given - Provider: Devora Bo)2031 (Given - Provider: Jonathan Vale RN) 0856 (Given - Provider: Yazmin Bhatt RN) sodium chloride 0.9 % flush 10 mL 10 mL, Intravenous, Every 12 hours, First dose on 11/09/25 at 1515, Until Discontinued, Routine 0222 (Given - Provider: Jonathan Vale, CHRISTIAN)1750 (Given - Provider: Devora Bo) 0258 (Given - Provider: Jonathan Vale RN)1643 (Given - Provider: Devora Bo) 0303 (Given - Provider: Jonathan Vale, RN)1442 (Given - Provider: Yazmin Bhatt, CHRISTIAN) Sodium Hypochlorite (Dakin's (HALF-Strength)) external solution 1 Application Irrigation, Daily, First dose on 11/09/24 at 0945, Until Discontinued, Routine 0939 (Not [...] Starting on Yadira 11/07/24 at 0854, Until Mon11/14/24 at 1804, Administer [...] Oral, Every 8 hours PRN, Starting on Yadira 11/14/24 at 0922, Until Yadira 11/14/24 at 1804, Routine, moderate pain, severe pain 1441 (Not Given - Provider: Yazmin Bhtat RN - Reason: Hold for condition: must [...] Yadira 11/14/24 at 1804, Routine, nausea, vomiting Group 5: oxyCODONE (Roxicodone) immediate release tablet 5 mgJump to med 5 mg, Oral, Every 8 hours PRN, Starting on Yadira 11/14/24 at 0922, Until Yadira 11/14/24 at 1804, [...] documented as of this encounter 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
--- OUTSIDE RECORDS SUMMARY | 2024-11-06 10:08 | XMS_ITS | Encounter Summary ---
Author Organization Healthcare Address [address] [place] [address] Care Team Providers Care Glass Lathe Operator Name Role Phone Asad Victor MD Primary Care Provider + [phone] Reason for Visit * Reason Comments Post-op Problem Wound Check * Auth/Cert (Routine) Specialty Diagnoses / Procedures Referred By Contac t Referred To Contact Diagnoses Wound infection Post-op Vasc Sx wounds - sx on 10/17 at Nathaly Nowak MD [address] [address] Phone: tel: fax: [facility] Emergency Department [address] [place] [address] Phone: tel: Referral ID Status Reason Start Date Expiration Date Visits Re quested Visits Authorized [id number] 1 1 Encounter Details Date Type Department Care Team (Late st Contact Info) Description 11/06/2024 10:08 AM EDT - 11/06/2024 11:38 AM EDT Surgery [facility] OPERATING ROOM [address] [place] [address] Nathaly Nowak MD [id number] [place] [address] Left groin exploration and washout, [...] time in the past 12 m [facility], were you homeless or living in a [...] drink first t dino 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 0 10/18/2021 CAGE Questionnaire Score 0 022 Utilities Answer Date Recorded In the past 12 months has [employer], gas, oil, or water [employer] threatened to shut off services in your [...] Carmona with any questions or concerns at [phone]. It is important that you get your [...] Note Bev Borja 64 y.o. male CSN: [id number] Admission: 11/05/2024 9:45 PM Primary Problem: Wound infection Primary Behavioral Modification Assistant: Primary Caregiver: Self Assistance Available at [...] 30 days Follow-up: [facility] [address] [facility] [address] Go to Infusion Clinic. Please arrive at 11 am daily. [facility] [address] Go to Wound care clinic. First appointment is 1:10 pm. Please call [phone] with scheduling concerns. Discharge Transportation: Transportation Anticipated: medical transport Transportation Home at Discharge: Medical Transport Follow Up Transport: Transportation Needed to Follow up Appoinments: Medical Transport Additional Comments: Patient discharging home. No other SW needs identified. Mariia Monterroso PAINT SUPERVISOR * Discharge Summary - Melecio Echevarria DO - 11/14/2024 12:46 PM EDT Hospitalization Admit Date/Time: 11/05/2024 9:45 PM Admitting Attending: Nathaly Nowak Discharge Date: 11/14/2024 Discharge Attending Physician: Nathaly Nowak MD PCP name and Address: Asad Victor MD (Inactive) [address] [place] [address] / [address] [address] Referring provider name and address: Wade Cowart, DO [address] [place] [address] Chief Concern, Brief History of Present Illness, and Hospital Course Mr. Borja is a 64 y/o male that presented to [facility] on 11/06/2024 for surgical wound infection [...] Your Medications These [facility] Infusion Services - GLENDA Solorzano - [address], [place] [address] ertapenem injection micafungin injection Discharge Diagnosis Medical [...] Center 11/26/2024 2:00 PM [facility] 1 [facility] 11/26/2024 2:30 PM [facility] 2 [facility] 11/26/2024 3:20 PM Elisabet Schuster PA [...] a 64 y/o male that presented to [facility] on 11/06/2024 for surgical wound infection [...] of the procedure(s) and immediately available [facility] services the entire duration. See resident note for details. * Progress Notes - Mariia Monterroso - 11/13/2024 1:57 PM EDT Case Management Adult Progress Note Bev Borja 64 y.o. male CSN: [id number] Admission: 11/05/2024 9:45 PM Primary Problem: Wound infection Wound vac to be delivered today by at bedside. SW sent referral/orders to [facility] wound care center (fax [phone]) and infusion clinic (fax [phone]). Plan to discharge tomorrow. SW will continue to follow. Mariia Monterroso PAINT SUPERVISOR * Progress Notes - Bianca Knight PharmD - 11/13/2024 12:55 PM EDT Vancomycin therapy has been stopped per ID recommendation. Pharmacist will sign off from dosing and monitoring vancomycin. Please re- consult a pharmacist if more vancomycin is indicated. Bianca Knight PharmD, [facility] * Progress Notes - Ailin [...] Lumen PICC Antimicrobial Regimen: IV Ertapenem 1g [id number] start date:11/06/2024 Projected End date:12/18/2024 IV Micafungin 150mg [id number] Start date: 11/12/2024 Projected End Date: 12/24/2024 [...] OPAT Team Attn: Dr Kraus Fax #: [phone] Appointments: (Dr Appiah 08/02/2024 at 2.30pm) at: [facility]: [address] [place] [address] (Select Option 3 for IV Antibiotic / PICC line related issues) For questions regarding OPAT prior to discharge, reach out to the OPAT team via [employer] Secure Chat (Group: OPAT Referral Team). For all questions regarding OPAT after discharge should be directed to the OPAT Team at (Select Option 3 for IV Antibiotics/PICC Issues) between 8am-5pm. After 5 pm, or during weekends/ holidays, please call the paging electric arc furnace operator at to reach the on-call ID [...] included. [facility] Department of Surgery Division of Vascular Surgery Surgery Progress Note 11/13/24 Bev Borja Subjective Subjective: HPI 64yoM PMHx COPD, T2DM, HLD, HTN, RLS, CAD s/p PCI (on Xarelto) s/p pacemaker c/b left SANDIP pseudoaneurysm s/p thrombin injection 09/21/24, CLI s/p left femoral endarterectomy with EIA/ADULT NEUROPSYCHOLOGIST stenting 10/17/24, [facility] [...] 09/21/24, CLI s/p left femoral endarterectomy with EIA/ADULT NEUROPSYCHOLOGIST stenting 10/17/24, [facility] [...] the findings. Cardiac Device Check - [facility] EP-Device Clinic: Pre-operative CIED Report Assessment and Sara-Procedural Reommendations: Name: Bev Borja Date: 10/17/2024 : 1960 Age: 64 y.o. 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 Lead integrity [...] recommendations. Supporting reports can be found in [employer] media file. Micro: Susceptibility data from last [...] Units Date/Time Tissue Culture and Gram Stain [[id number]] (Abnormal) (Susceptibility) Collected: 11/06/24 1134 Order Status: Completed Specimen: Tissue from Other (specify site) Updated: 11/12/24 1334 Culture Moderate Growth 2+ Enterobacter cloacae complex Comment: This isolate has been identified using the FDA Approved FamilyFindsyper CA System The organism value for this result has been updated. These results have been appended to the previously preliminary verified report. Edited result: Previously reported as Gram Negative Jesus on 11/07/2024 at 1434 EDT. 2+ Streptococcus mitis/oralis group Comment: This isolate has been identified using the FDA Approved MALDI Inspire Healthyper CA System The organism value for this result has been updated. These results have been appended to the previously preliminary verified report. 2+ Pasteurella stomatis Comment: This result was determined by MALDI tof mass spectrometry using the BioVascular database and is for research use only. [...] stewardship team. Comprehensive GI Panel by PCR [[id number]] (Normal) Collected: 11/12/24 0950 Order Status: Completed [...] if clinically indicated. Clostridiodes (Clostridium) difficile PCR [[id number]] (Normal) Collected: 11/12/24 0950 Order Status: Completed [...] high complexity clinical laboratory testing. 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 These results have been appended to the previously preliminary verified report. Edited result: Previously reported as Yeast on 11/11/2024 at 1317 EDT. ISIDRO No fungal elements seen Additional Susceptibilities and/or Identification [[id number]] Collected: 11/11/24 1240 Order Status: Completed Specimen: Tissue from Wound (specify site): Additional Susceptibilities and/or Identification [[id number]] Collected: 11/11/24 1238 Order Status: Completed Specimen: Tissue from Wound (specify site): Additional Susceptibilities and/or Identification [[id number]] Collected: 11/11/24 1237 Order Status: Completed Specimen: Tissue from Wound (specify site): AFB Culture, Non Respiratory Source and Acid Fast Stain [[id number]] Collected: 11/06/24 1134 Order Status: Completed Specimen: Tissue from Other (specify site) Updated: 11/11/24 0938 AFB Culture No Mycobacterial Growth <1 Week Acid Fast Stain No acid fast bacilli seen Blood Culture (Aerobic/Anaerobet Set) [[id number]] Collected: 11/06/24106 Order Status: Completed Specimen: Blood from AC, Left Updated: 11/11/24 0301 Culture No growth at day 5 Blood Culture (Aerobic/Anaerobet Set) [[id number]] Collected: 11/06/24106 Order Status: Completed Specimen: Blood [...] [facility]SH. [facility] [...] to stay a facility, plan for [facility] daily IV abx. Plan [...] tablet 1,000 mg 1,000 mg Oral q6h COUNTS INCLUDE 234 BEDS AT THE [facility] Anthony Reyes MD 1,000 mg [...] Prevent or Manage Pain Flowsheets (Taken 11/11/2024 6998 by Jonathan Vale RN) Sensory Stimulation Regulation: care clustered lighting decreased quiet environment promoted Medication Review/Management: medications reviewed * Consults - Anabel Ovalle RD - 11/12/2024 9:59 AM EDT Adult Nutrition Evaluation Note Bev Borja 64 y.o. male CSN: [id number] Room/Bed 682/682B Nutrition evaluation type: assessment Reason for evaluation: LOS Hospital course: 64 y.o. male with PMHx significant for COPD, CAD s/p PCI (on Xarelto) s/p pacemaker c/b left SANDIP pseudoaneurysm s/p thrombin injection 09/21/24, chronic limb ischemia s/p left femoralendarterectomy with external iliac/common femoral artery stenting 10/17/24, T2DM, HLD, HTN, RLS who presented to the [facility] on 11/05/2024 with problems with his [...] (194 lb 3.6 oz) BMI (Calculated): 30.41 [place] Body Weight (kg): 67.3 Percent [place] Body Weight: 131 Adjusted Body Weight (kg): [...] oz) Estimated Needs: Kcal/ K-30 Kcal Provided: 6706-8845 Kcal Needs Based On: Adjusted weight Gm Protein/ Kg : 1.2-1.5 Protein Provided: 87-108 Protein Needs Based On: Adjusted weight Metabolic Cart Study Results: Current Nutrition Intake: Diet Order: Adult Diet Diet Texture: Regular Adult Carbohydrate Restriction: Consistent CHO 1 (0461-9163 Jatinder, 65 g/meal) Percent Meals Eaten (%): [...] ENDARTERECTOMY N/A 2017 Endarterectomy Carotid Artery from [facility] CORONARY ANGIOPLASTY Left Coronary Angiography With Concomitant Left Heart Catheterization from [employer] [facility] [employer] CORONARY ARTERY BYPASS GRAFT N/A 2018 3V ELBOW SURGERY Right ENDARTERECTOMY Left 10/17/2024 common/SFA/Profunda thromboendarterectomy, EIA/ADULT NEUROPSYCHOLOGIST stent HERNIA REPAIR KNEE ARTHROSCOPY Left VASCULAR SURGERY Left 09/21/2024 ADULT NEUROPSYCHOLOGIST pseudoaneurym injection [3] Social History Tobacco Use [...] from the original note were not included. [facility] Department of Surgery Division of Vascular Surgery Surgery Progress Note 11/12/24 Bev Perez Cristoferkeo Subjective Subjective: HPI 64yoM PMHx COPD, T2DM, HLD, HTN, RLS, CAD s/p PCI (on Xarelto) s/p pacemaker c/b left SANDIP pseudoaneurysm s/p thrombin injection 09/21/24, CLI s/p left femoral endarterectomy with EIA/ADULT NEUROPSYCHOLOGIST stenting 10/17/24, [facility] [...] reviewed. Labs reviewed. Assessment/Plan Assessment and Plan: Bve Borja is a 64yo M PMHx COPD, T2DM, HLD, HTN, RLS, CAD s/p PCI (on Xarelto) s/p pacemaker c/b left SANDIP pseudoaneurysm s/p thrombin injection 09/21/24, CLI s/p left femoral endarterectomy with EIA/ADULT NEUROPSYCHOLOGIST stenting 10/17/24, [facility] [...] GENERAL INFECTIOUS DISEASE PROGRESS NOTE Attending: Nathaly Nowka MD Subjective: NAEON. Pt reports that he [...] the findings. Cardiac Device Check - [facility] EP-Device Clinic: Pre-operative CIED Report Assessment and Sara-Procedural Reommendations: Name: Bev Borja Date: 10/17/2024 : 1960 Age: 64 y.o. 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 Lead integrity [...] recommendations. Supporting reports can be found in [employer] media file. Micro: Susceptibility data from last [...] Units Date/Time Tissue Culture and Gram Stain [[id number]] (Abnormal) (Susceptibility) Collected: 11/06/24 1134 Order Status: Completed Specimen: Tissue from Other (specify site) Updated: 11/12/24 1334 Culture Moderate Growth 2+ Enterobacter cloacae complex Comment: This isolate has been identified using the FDA Approved AlphaBooster CA System The organism value for this result has been updated. These results have been appended to the previously preliminary verified report. Edited result: Previously reported as Gram Negative Jesus on 11/07/2024 at 1434 EDT. 2+ Streptococcus mitis/oralis group Comment: This isolate has been identified using the FDA Approved AlphaBooster CA System The organism value for this result has been updated. These results have been appended to the previously preliminary verified report. 2+ Pasteurella stomatis Comment: This result was determined by MALDI tof mass spectrometry using the BioVascular database and is for research use only. [...] stewardship team. Comprehensive GI Panel by PCR [[id number]] (Normal) Collected: 11/12/24 0950 Order Status: Completed [...] if clinically indicated. Clostridiodes (Clostridium) difficile PCR [[id number]] (Normal) Collected: 11/12/24 0950 Order Status: Completed [...] high complexity clinical laboratory testing. Anaerobic Culture [[id number]] Collected: 11/06/24 1128 Order Status: Completed Specimen: Swab from Other (specify site) Updated: 11/12/24 1118 Culture No growth at day 4 Fungal Culture, Tissue and ISIDRO [[id number]] (Abnormal) Collected: 11/06/24 1134 Order Status: Completed Specimen: Tissue from Other (specify site) Updated: 11/12/24 1033 Culture Reading Mycological 4 Weeks Rare Ogema Sana parapsilosis Comment: This isolate has been identified using the FDA Approved FamilyFindsyper CA System The organism value for this result has been updated. These results have been appended to the previously preliminary verified report. Edited result: Previously reported as Yeast on 11/11/2024 at 1317 EDT. ISIDRO No fungal elements seen Additional Susceptibilities and/or Identification [[id number]] Collected: 11/11/24 1240 Order Status: Completed Specimen: Tissue from Wound (specify site): Additional Susceptibilities and/or Identification [[id number]] Collected: 11/11/24 1238 Order Status: Completed Specimen: Tissue from Wound (specify site): Additional Susceptibilities and/or Identification [[id number]] Collected: 11/11/24 1237 Order Status: Completed Specimen: Tissue from Wound (specify site): AFB Culture, Non Respiratory Source and Acid Fast Stain [[id number]] Collected: 11/06/24 1134 Order Status: Completed Specimen: Tissue from Other (specify site) Updated: 11/11/24 0938 AFB Culture No Mycobacterial Growth <1 Week Acid Fast Stain No acid fast bacilli seen Blood Culture (Aerobic/Anaerobet Set) [[id number]] Collected: 11/06/24106 Order Status: Completed Specimen: Blood from AC, Left Updated: 11/11/24 0301 Culture No growth at day 5 Blood Culture (Aerobic/Anaerobet Set) [[id number]] Collected: 11/06/24106 Order Status: Completed Specimen: Blood [...] OSH. On 11/06, pt went to the [facility] vascular surgery for left groin exploration and [...] want to stay a facility, [facility] daily IV abx. Plan for [...] tablet 1,000 mg 1,000 mg Oral q6h COUNTS INCLUDE 234 BEDS AT THE [facility] Anthony Reyes MD 1,000 mg at 11/12/24 1356 aspirin chewable tablet 81 mg 81 mg Oral Daily Reid Daniels MD 81 mg at 11/12/24 0938 cefepime (Maxipime) 2 g in sodium chloride 0.9% 100 mL IVPB (vial adapter required) 2 g [id number] Reid Daniels MD 36.7 mL/hr at 11/12/24 [...] PM Anthony Reyes MD 0.4 mg at 422100 Vancomycin HCl in NaCl (Vancocin) IVPB 1,000 [...] send him home on micafungin as Rare Ogema Sana parapsilosis grew and we do not [...] of the procedure(s) and immediately available [facility] services the entire duration. See resident note for details. * Progress Notes - Mariia Monterroso - 11/11/2024 1:10 PM EDT Case Management Adult Progress Note Bev Borja 64 y.o. male CSN: [id number] Admission: 11/05/2024 9:45 PM Primary Problem: Wound infection Patient refusing inpatient placement for IV abx. [facility] infusion clinic can provide treatment. Face sheet, IV abx orders, and order for PICC care/labs/dressing changes need to be faxed to [phone]. Voicemail left with wound care clinic. Wound vac approved per , delivery pending. Crysll continue to follow. Mariia Monterroso PAINT SUPERVISOR * Progress Notes - Dotty Sethi [...] the findings. Cardiac Device Check - [facility] EP-Device Clinic: Pre-operative CIED Report Assessment and Sara-Procedural Reommendations: Name: Bev Borja Date: 10/17/2024 : 1960 Age: 64 y.o. 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 Lead integrity [...] recommendations. Supporting reports can be found in [employer] media file. Micro: Susceptibility data from last [...] Non Respiratory Source and Acid Fast Stain [[id number]] Collected: 11/06/24 1134 Order Status: Completed Specimen: Tissue from Other (specify site) Updated: 11/11/24 0938 AFB Culture No Mycobacterial Growth <1 Week Acid Fast Stain No acid fast bacilli seen Blood Culture (Aerobic/Anaerobet Set) [[id number]] Collected: 11/06/24106 Order Status: Completed Specimen: Blood from AC, Left Updated: 11/11/24 0301 Culture No growth at day 5 Blood Culture (Aerobic/Anaerobet Set) [[id number]] Collected: 11/06/24 010 Order Status: Completed Specimen: Blood from Hand, Right Updated: 11/11/24 0249 Culture No growth at day 5 Anaerobic Culture [[id number]] Collected: 11/06/24 1128 Order Status: Completed Specimen: Swab from Other (specify site) Updated: 11/10/24 1441 Culture No growth at day 4 Routine Culture and Gram Stain [[id number]] Collected: 11/06/24 1128 Order Status: Completed Specimen: Swab from Other (specify site) Updated: 11/10/24 1124 Culture No growth at day 4 Gram Stain Result No organisms seen No polymorphonuclear leukocytes seen Anaerobic Culture [[id number]] (Abnormal) Collected: 11/06/24 112 Order Status: Completed Specimen: Swab from Other (specify site) Updated: 11/10/24 0718 Culture No anaerobes isolated Mixed skin clifton Comment: The organism value for this result has been updated. These results have been appended to the previously preliminary verified report. Narrative: Mixed Skin Clifton includes Streptococcus mitis/oralis group and Staphylococcus Pseudintermedius Anaerobic Culture [[id number]] (Abnormal) Collected: 11/06/24 1134 Order Status: Completed [...] OSH. [facility] [...] mL IVPB (vial adapter required) 2 g [id number] Reid Daniels MD 36.7 mL/hr at 11/11/24 [...] mg 1 mg Intramuscular q15 min PRN Ried Daniels MD hydrALAZINE (Apresoline) injection 10 mg [...] PM Anthony Reyes MD 0.4 mg at 405128 Vancomycin HCl in NaCl (Vancocin) IVPB 1,000 [...] from the original note were not included. [facility] Department of Surgery Division of Vascular Surgery Surgery Progress Note 11/11/24 Bev Borja Subjective Subjective: HPI 64yoM PMHx COPD, T2DM, HLD, HTN, RLS, CAD s/p PCI (on Xarelto) s/p pacemaker c/b left SANDIP pseudoaneurysm s/p thrombin injection 09/21/24, CLI s/p left femoral endarterectomy with EIA/ADULT NEUROPSYCHOLOGIST stenting 10/17/24, [facility] 09/21/24, CLI s/p left femoral endarterectomy with EIA/ADULT NEUROPSYCHOLOGIST stenting 10/17/24, [facility] [...] to follow, Submitted by: Kalpesh Lord PharmD, [facility] 11/10/2024 12:45 PM * Care [...] 09/21/24, CLI s/p left femoral endarterectomy with EIA/ADULT NEUROPSYCHOLOGIST stenting 10/17/24, [facility] [...] 09/21/24, CLI s/p left femoral endarterectomy with EIA/ADULT NEUROPSYCHOLOGIST stenting 10/17/24, [facility] [...] Barraza RN Authorized by: Nathaly Nowak MD [place] Protocol: Verbal consent obtained?: Yes Written consent [...] selection rationale: Left pacemaker Catheter Lot #: [id number] Catheter vegetable thinner: ExaDigm Catheter placed: Single lumen Catheter size: 4 [...] 09/21/24, CLI s/p left femoral endarterectomy with EIA/ADULT NEUROPSYCHOLOGIST stenting 10/17/24, [facility] [...] 09/21/24, CLI s/p left femoral endarterectomy with EIA/ADULT NEUROPSYCHOLOGIST stenting 10/17/24, [facility] [...] Level of Care [place] M4 student [facility] [place] Cosigned by Nathaly [...] PT session. Patient reports he went to [facility] 12th floor via w/c yesterday [...] Mobility: Ambulatory- community (was utilizing scooter at [employer] since discharge) Mobility Mcintosh: Independent gait with device History of Falls: [...] Mobility Bed Mobility Exam: Scooting/Bridging Level of Mcintosh: Modified independence Bed Mobility Exam: Supine to Sit Level of Mcintosh: Modified Mcintosh Transfers Transfer Exam: Sit to stand Level of Mcintosh: Modified independence Assistive Device: Rollator Transfer Exam: Stand to Sit Level of Mcintosh: Modified independence Assistive Device: Rollator Ambulation Device: [...] maintain/improve functional mobility and endurance. Standardized Assessments [facility] 6-Clicks Mobility Assessment Difficulty patient [...] 3-5 steps with a railing?: A little [facility] 6-Clicks Mobility Assessment Total : [...] Equipment Recommendations Patient owns appropriate equipment HISTORY Bve Borja is 64 y.o. male admitted 11/05/2024 [...] Mobility Ambulatory- community (was utilizing scooter at [employer] since discharge) Mobility Mcintosh Independent gait with device History of Falls [...] distal to knee) BED MOBILITY Level of Mcintosh Physical/Non-physical Assist Adaptive Equipment Utilized Scooting/ Bridging Modified independence Supine to Sit Modified Mcintosh TRANSFERS Level of Mcintosh Physical/Non-physical Assist Adaptive Equipment Utilized Sit to Stand Modified independence Rollator Stand to sit Modified independence Rollator Toilet Transfer Modified independence Grab bar FUNCTIONAL MOBILITY Ambulation Modified independent 200ft x2 with seated rest break between bouts; RPE 5-7/10. Cues forsafety with rollator brakes. Rollator Comments BALANCE Postural Appearance Posture: Within Functional Limits Level of Mcintosh Balance Support Static Sit Independent Feet supported Dynamic Sit Independent Feet supported Static Stand Independent Right upper extremity support, Left upper extremity support (via rollator) Dynamic Stand Independent Right upper extremity support, Left upper extremity support (via rollator) STANDARDIZED ASSESSMENTS [facility] 6-Click Daily Activities Help from Other: Don/Doff Regular Lower Body Clothings: None Help From Other: Bathing: None Help From Other: Toileting: None Help From Other: Don/Doff Upper Body Clothings: None Help From Other: Grooming: None Help From Other: Eating Meals: None [facility] 6 Click - Daily Activities Score: [...] needed areas of treatment space. Level of Mcintosh Interventions Grooming Modified independent Standing sinkside Pt [...] 8:57 AM. * Care Plan - Eber Hasnon RN - 11/09/2024 1:08 AM EDT Problem: [...] Note Bev Borja 64 y.o. male CSN: [id number] Admission: 11/05/2024 9:45 PM Primary Problem: Wound [...] follow and assist as needed. Mariia Monterroso PAINT SUPERVISOR * Progress Notes - Bianca Knight [...] from the original note were not included. [facility] Department of Surgery Division of Vascular Surgery Surgery Progress Note 11/08/24 Bev Borja Subjective Subjective: HPI 64yoM PMHx COPD, T2DM, HLD, HTN, RLS, CAD s/p PCI (on Xarelto) s/p pacemaker c/b left SANDIP pseudoaneurysm s/p thrombin injection 09/21/24, CLI s/p left femoral endarterectomy with EIA/ADULT NEUROPSYCHOLOGIST stenting 10/17/24, [facility] [...] 10/19 Pseudoaneurysm of left femoral artery ([facility]) COPD (chronic obstructive pulmonary disease) ([facility]) Overview Signed 10/18/2021 7:30 PM by Gallo Gallardo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 [id number] 11/12/2024 12:38 PM EDT [facility] Specimen Type POC Capillary 11/12/2024 12:38 PM EDT [facility] Blood Capillary blood specimen / Unknown 11/12/2024 12:36 PM EDT 11/12/2024 12:38 PM EDT us Nathaly Nowak MD LAB POINT OF CARE TE ST DOCKED DEVICE UNSOLICITED RESULTS Final Result Performing Organization Address City/[facility]/ZIP Co de Phone Number [facility] [address] [place] [address] * Clostridiodes (Clostridium) difficile PCR (11/12/2024 9:50 [...] Nathaly Nowak MD LAB MICROBIOLOGY - [facility] Final Result [facility] [address] [place] [address] * Comprehensive GI Panel by PCR (11/12/2024 [...] Detected Not Detected 11/12/2024 2:47 PM EDT [facility] Enteroaggregative E. coli (EAEC) PCR Result Not Detected Not Detected 11/12/2024 2:47 PM EDT [facility] Enteropathogenic E. coli (EPEC) PCR Result [...] ORDE RABLES Final Result Performing Organization Address City/[facility]/ZIP Co de Phone Number [facility] [address] [place] [address] * C-reactive protein (11/12/2024 9:48 AM EDT) [facility] CRP, Plasma <3.0 <=8.0 mg/L 11/12/2024 10:28 AM EDT [facility] Blood Venous blood specimen / Unknown Venipuncture / Unknown 11/12/2024 9:48 AM EDT 11/12/2024 9:59 AM EDT [facility] - 11/12/2024 10:28 AM EDT This CRP test is appropriate for assessment of infection, systemic inflammation and/or tissue injury. To assess cardiovascular disease risk order high sensitivity CRP (CRPH). Nathaly Nowak MD LAB BLOOD ORDERABLES Final Resu lt Performing Organization Address [facility] Co de Phone Number [facility] [address] [place] [address] * (ABNORMAL) POCT glucose meter (11/12/2024 8:20 AM EDT) [facility] POCT Glucose 138(H) 74 - 99 mg/dL [...] 11/12/2024 8:21 AM EDT [facility] Language Asst ID Wade Feliciano 8:21 AM EDT [facility]ALTHCARE LAB Device ID [id number] 11/12/2024 8:21 AM EDT [facility] Specimen Type POC Capillary 11/12/2024 8:21 AM EDT [facility] Blood Capillary blood specimen / Unknown 11/12/2024 8:20 AM EDT 11/12/2024 8:21 AM EDT Nathaly Nowak MD LAB POINT OF CARE TE ST DOCKED DEVICE UNSOLICITED RESULTS Final Result Performing Organization Address [facility] de Phone Number [facility] [address] [place] [address] * (ABNORMAL) POCT glucose meter (11/11/2024 8:18 PM EDT) Pathologist [facility] [place] POCT Glucose 248(H) 74 - 99 mg/dL [...] Comment 11/11/2024 8:20 PM EDT [facility]ALTH[facility]ARE LAB Language Asst ID Nelda Gerber 11/12/19 8:20 PM EDT [facility] Device ID [id number] 11/11/2024 8:20 PM EDT [facility] Specimen Type POC Capillary 11/11/2024 8:20 PM EDT [facility] Blood Capillary blood specimen / Unknown 11/11/2024 8:18 PM EDT 11/11/2024 8:20 PM EDT us Nathaly Nowak MD LAB POINT OF CARE TE ST DOCKED DEVICE UNSOLICITED RESULTS Final Result Performing Organization Address City/[facility] de Phone Number [facility] [address] [place] [address] * (ABNORMAL) POCT glucose meter (11/11/2024 5:59 PM EDT) Pathologist [facility] [place] POCT Glucose 147(H) 74 - 99 mg/dL [...] Comment 11/11/2024 6:01 PM EDT [facility] Language Asst ID BradenWade 6:01 PM EDT [facility] LAB Device ID [id number] 11/11/2024 6:01 PM EDT [facility] Specimen Type POC Capillary 11/11/2024 6:01 PM EDT [facility] Blood Capillary blood specimen / Unknown 11/11/2024 5:59 PM EDT 11/11/2024 6:01 PM EDT us Nathaly Nowak MD LAB POINT OF CARE TE ST DOCKED DEVICE UNSOLICITED RESULTS Final Result Performing Organization Address [facility] de Phone Number [facility] [address] [place] [address] * POCT glucose meter (11/11/2024 5:20 PM EDT) [facility] POCT Glucose 84 74 - 99 mg/dL [...] Comment 11/11/2024 5:22 PM EDT [facility]ARE LAB Language Asst ID Wade Feliciano 5:22 PM EDT [facility] Device ID [id number] 11/11/2024 5:22 PM EDT [facility] Specimen Type POC Capillary 11/11/2024 5:22 PM EDT [facility] Blood Capillary blood specimen / Unknown 11/11/2024 5:20 PM EDT 11/11/2024 5:22 PM EDT us Nathaly Nowak MD LAB POINT OF CARE TE ST DOCKED DEVICE UNSOLICITED RESULTS Final Result Performing Organization Address City/[facility] Co de Phone Number [facility] [address] [place] [address] * [place] NEGATIVE PRESSURE WOUND THERAPY DME >50 SQ [...] 12:08 PM EDT) [facility] POCT Glucose 226(H) 74 - 99 mg/dL [...] Comment 11/11/2024 12:10 PM EDT [facility]ALTHCARE LAB Language Asst ID Braden Wade Tobias 12:10 PM EDT [facility] Device ID [id number] 11/11/2024 12:10 PM EDT [facility]ARE LAB Specimen Type POC Capillary 11/11/2024 12:10 PM EDT [facility] Blood Capillary blood specimen / Unknown 11/11/2024 12:08 PM EDT 11/11/2024 12:10 PM EDT Nathaly Nowak MD LAB POINT OF CARE TE ST DOCKED DEVICE UNSOLICITED RESULTS Final Result [facility] [address] [place] [address] * (ABNORMAL) POCT glucose meter (11/11/2024 9:08 [...] for testing. Comment 11/11/2024 9:09 AM EDT [facility] Language Asst ID Wade Feliciano 9:09 AM EDT [facility] Device ID [id number] 11/11/2024 9:09 AM EDT [facility] Specimen Type POC Capillary 11/11/2024 9:09 AM EDT [facility] Blood Capillary blood specimen / Unknown 11/11/2024 9:08 AM EDT 11/11/2024 9:09 AM EDT Nathaly Nowak MD LAB POINT OF CARE TE ST DOCKED DEVICE UNSOLICITED RESULTS Final Result [facility] [address] [place] [address] * POCT glucose meter (11/11/2024 8:27 AM EDT) Pathologist [facility] [place] POCT Glucose 87 74 - 99 mg/dL [...] Comment 11/11/2024 8:28 AM EDT [facility]ALTH[facility]ARE LAB Language Asst ID Wade Feliciano 8:28 AM EDT [facility]ALTH[facility]ARE LAB Device ID [id number] 11/11/2024 8:28 AM EDT [facility] Specimen Type POC Capillary 11/11/2024 8:28 AM EDT [facility] Blood Capillary blood specimen / Unknown 11/11/2024 8:27 AM EDT 11/11/2024 8:28 AM EDT us Nathaly Nowak MD LAB POINT OF CARE TE ST DOCKED DEVICE UNSOLICITED RESULTS Final Result [facility] [address] [place] [address] * (ABNORMAL) Basic Metabolic Panel, Plasma (11/11/2024 [...] Resu lt [facility] [address] [place] [address] * (ABNORMAL) CBC W/O Differential (11/11/2024 12:56 [...] Resu lt [facility] [address] [place] [address] * (ABNORMAL) POCT glucose meter (11/10/2024 8:25 [...] Comment 11/10/2024 8:28 PM EDT [facility]ALTH[facility]ARE LAB Language Asst ID Nelda Gerber 11/11/19 8:28 PM EDT [facility]ALTH[facility]ARE LAB Device ID [id number] 11/10/2024 8:28 PM EDT [facility] LAB Specimen Type POC Capillary 11/10/2024 8:28 PM EDT [facility] Blood Capillary blood specimen / Unknown 11/10/2024 8:25 PM EDT 11/10/2024 8:28 PM EDT us Nathaly Nowak MD LAB POINT OF CARE TE ST DOCKED DEVICE UNSOLICITED RESULTS Final Result [facility] [address] [place] [address] * (ABNORMAL) POCT glucose meter (11/10/2024 4:45 [...] Comment 11/10/2024 4:47 PM EDT [facility]ALTH[facility]ARE LAB Language Asst ID Esperanza Parks 11/10/2024 4:47 PM EDT [facility] Device ID [id number] 11/10/2024 4:47 PM EDT [facility]ALTH[facility]ARE LAB Specimen Type POC Capillary 11/10/2024 4:47 PM EDT [facility] Blood Capillary blood specimen / Unknown 11/10/2024 4:45 PM EDT 11/10/2024 4:47 PM EDT Nathaly Nowak MD LAB POINT OF CARE TE ST DOCKED DEVICE UNSOLICITED RESULTS Final Result Performing Organization Address City/State/[facility] Co de Phone Number [facility] [address] [place] [address] * (ABNORMAL) POCT glucose meter (11/10/2024 12:13 PM EDT) [facility] POCT Glucose 131(H) 74 - 99 mg/dL [...] Comment 11/10/2024 12:14 PM EDT [facility]ALTHCARE LAB Language Asst ID Esperanza Parks 11/10/2024 12:14 PM EDT [facility] Device ID [id number] 11/10/2024 12:14 PM EDT [facility] Specimen Type POC Capillary 11/10/2024 12:14 PM EDT [facility] Blood Capillary blood specimen / Unknown 11/10/2024 12:13 PM EDT 11/10/2024 12:14 PM EDT us Nathaly Nowak MD LAB POINT OF CARE TE ST DOCKED DEVICE UNSOLICITED RESULTS Final Result Performing Organization Address [facility] Co de Phone Number [facility] [address] [place] [address] * Vancomycin, Peak, Plasma Please draw ~2 hours after 0800 dose of vancomycin finishes infusing. Consider obtaining level via peripheral stick. If peripheral stick is not feasible, please ensure that line is flushed well prior to drawing level. Than... (11/10/2024 10:56 AM EDT) [facility] Vancomycin, Peak, Plasma 23.8 20.0 - 40.0 [...] ORDERABLES Final Res ult Performing Organization Address [facility] Co de Phone Number [facility] [address] [place] [address] * (ABNORMAL) POCT glucose meter (11/10/2024 8:03 AM EDT) [facility] POCT Glucose 174(H) 74 - 99 mg/dL 11/10/2024 8:04 AM EDT [facility] Comment:Accuracy of a glucos e [...] testing. Comment 11/10/2024 8:04 AM EDT [facility] Language Asst ID Esperanza Parks 11/10/2024 8:04 AM EDT [facility] Device ID [id number] 11/10/2024 8:04 AM EDT [facility]ALTH[facility]ARE LAB Specimen Type POC Capillary 11/10/2024 8:04 AM EDT [facility] Blood Capillary blood specimen / Unknown 11/10/2024 8:03 AM EDT 11/10/2024 8:04 AM EDT Nathaly Nowak MD LAB POINT OF CARE TE ST DOCKED DEVICE UNSOLICITED RESULTS Final Result Performing Organization Address [facility] Co de Phone Number [facility] [address] [place] [address] * Vancomycin, Trough, Plasma Please draw ~30 [...] ORDERABLES Final Res ult Performing Organization Address City/[facility]/ZIP Co de Phone Number [facility] [address] [place] [address] * (ABNORMAL) CBC and Differential (11/10/2024 12:31 [...] Resu lt [facility] [address] [place] [address] * (ABNORMAL) Comprehensive Metabolic Panel, Plasma (11/10/2024 [...] Resu lt [facility] [address] [place] [address] * (ABNORMAL) POCT glucose meter (11/09/2024 8:04 PM EDT) [facility] POCT Glucose 114(H) 74 - 99 mg/dL [...] Comment 11/09/2024 8:06 PM EDT HEALTHCARE LAB Language Asst ID Maximiliano Hansen II 11/09/2024 8:06 PM EDT HEALTHCARE LAB Device ID [id number] 11/09/2024 8:06 PM EDT [facility]ALTH[facility]ARE LAB Specimen Type POC Capillary 11/09/2024 8:06 PM EDT [facility] Blood Capillary blood specimen / Unknown 11/09/2024 8:04 PM EDT 11/09/2024 8:06 PM EDT Nathaly Nowak MD LAB POINT OF CARE TE ST DOCKED DEVICE UNSOLICITED RESULTS Final Result [facility] [address] [place] [address] * (ABNORMAL) POCT glucose meter (11/09/2024 4:36 [...] 11/09/2024 4:38 PM EDT [facility] Language Asst ID Kristian Sosa 11/09/2024 4:38 PM EDT [facility] Device ID [id number] 11/09/2024 4:38 PM EDT [facility]ALTH[facility]ARE LAB Specimen Type POC Capillary 11/09/2024 4:38 PM EDT [facility] Blood Capillary blood specimen / Unknown 11/09/2024 4:36 PM EDT 11/09/2024 4:38 PM EDT Nathaly Nowak MD LAB POINT OF CARE TE ST DOCKED DEVICE UNSOLICITED RESULTS Final Result Performing Organization Address City/State/[facility] Co de Phone Number [facility] [address] [place] [address] * PICC SINGLE LUMEN ([employer] L[employer]) (11/09/2024 1:11 PM EDT) Narrative Estefani Barraza RN - 11/09/2024 1:11 PM EDT Estefani Barraza RN 11/09/2024 1:12 PM Insert PICC line Date/Time: 11/09/2024 1:11 PM Performed by: Estefani Barraza RN Authorized by: Nathaly Nowak MD [place] Protocol: Verbal consent obtained?: Yes Written consent [...] selection rationale: Left pacemaker Catheter Lot #: [id number] Catheter vegetable thinner: ExaDigm Catheter placed: Single lumen Catheter size: 4 [...] for testing. Comment 11/09/2024 11:51 AM EDT [facility] Language Asst ID Kristian Sosa 11/09/2024 11:51 AM EDT [facility] Device ID [id number] 11/09/2024 11:51 AM EDT [facility] Specimen Type POC Capillary 11/09/2024 11:51 AM EDT [facility] Blood Capillary blood specimen / Unknown 11/09/2024 11:50 AM EDT 11/09/2024 11:51 AM EDT Nathaly Nowak MD LAB POINT OF CARE TE ST DOCKED DEVICE UNSOLICITED RESULTS Final Result [facility] [address] [place] [address] * (ABNORMAL) POCT glucose meter (11/09/2024 8:14 [...] Comment 11/09/2024 8:15 AM EDT HEALTHCARE LAB Language Asst ID Kristian Sosa 11/09/2024 8:15 AM EDT HEALTHCARE LAB Device ID [id number] 11/09/2024 8:15 AM EDT [facility]ALTH[facility]ARE LAB Specimen Type POC Capillary 11/09/2024 8:15 AM EDT [facility] Blood Capillary blood specimen / Unknown 11/09/2024 8:14 AM EDT 11/09/2024 8:15 AM EDT us Nathaly Nowak MD LAB POINT OF CARE TE ST DOCKED DEVICE UNSOLICITED RESULTS Final Result [facility] [address] [place] [address] * (ABNORMAL) CBC and Differential (11/09/2024 4:15 AM EDT) [facility] WBC Count 10.27 3.70 - 10.30 10*3/uL [...] Resu lt [facility] [address] [place] [address] * (ABNORMAL) Comprehensive Metabolic Panel, Plasma (11/09/2024 [...] Resu lt [facility] [address] [place] [address] * (ABNORMAL) POCT glucose meter (11/09/2024 3:30 AM EDT) POCT Glucose 160(H) 74 - 99 mg/dL 11/09/2024 3:31 AM EDT [facility] Comment:Accuracy of a glucos e [...] testing. Comment 11/09/2024 3:31 AM EDT [facility] Language Asst ID Maximiliano Hansen II 11/09/2024 3:31 AM EDT HEALTHCARE LAB Device ID [id number] 11/09/2024 3:31 AM EDT [facility]ALTH[facility]ARE LAB Specimen Type POC Capillary 11/09/2024 3:31 AM EDT [facility] Blood Capillary blood specimen / Unknown 11/09/2024 3:30 AM EDT 11/09/2024 3:31 AM EDT Nathaly Nowak MD LAB POINT OF CARE TE ST DOCKED DEVICE UNSOLICITED RESULTS Final Result Performing Organization Address City/[facility] Co de Phone Number [facility] [address] [place] [address] * (ABNORMAL) POCT glucose meter (11/08/2024 7:21 PM EDT) [facility] POCT Glucose 292(H) 74 - 99 mg/dL [...] Comment 11/08/2024 7:22 PM EDT HEALTHCARE LAB Language Asst ID Maximiliano Hansen II 11/08/2024 7:22 PM EDT HEALTHCARE LAB Device ID [id number] 11/08/2024 7:22 PM EDT [facility]ALTH[facility]ARE LAB Specimen Type POC Capillary 11/08/2024 7:22 PM EDT [facility] Blood Capillary blood specimen / Unknown 11/08/2024 7:21 PM EDT 11/08/2024 7:22 PM EDT Nathaly Nowak MD LAB POINT OF CARE TE ST DOCKED DEVICE UNSOLICITED RESULTS Final Result Performing Organization Address City/[facility]/ZIP Co de Phone Number [facility] [address] [place] [address] * (ABNORMAL) POCT glucose meter (11/08/2024 5:12 [...] Comment 11/08/2024 5:14 PM EDT HEALTHCARE LAB Language Asst ID Estefani Sheth 11/08/2024 5:14 PM EDT HEALTHCARE LAB Device ID [id number] 11/08/2024 5:14 PM EDT [facility]ALTH[facility]ARE LAB Specimen Type POC Capillary 11/08/2024 5:14 PM EDT [facility] Blood Capillary blood specimen / Unknown 11/08/2024 5:12 PM EDT 11/08/2024 5:14 PM EDT Nathaly Nowak MD LAB POINT OF CARE TE ST DOCKED DEVICE UNSOLICITED RESULTS Final Result Performing Organization Address City/State/[facility] Co de Phone Number [facility] [address] [place] [address] * (ABNORMAL) POCT glucose meter (11/08/2024 12:03 PM EDT) [facility] POCT Glucose 191(H) 74 - 99 mg/dL [...] Comment 11/08/2024 12:05 PM EDT [facility]ALTHCARE LAB Language Asst ID Estefani Sheth 11/08/2024 12:05 PM EDT [facility]ALTH[facility]ARE LAB Device ID [id number] 11/08/2024 12:05 PM EDT [facility]ALTH[facility]ARE LAB Specimen Type POC Capillary 11/08/2024 12:05 PM EDT [facility] Blood Capillary blood specimen / Unknown 11/08/2024 12:03 PM EDT 11/08/2024 12:05 PM EDT Nathaly Nowak MD LAB POINT OF CARE TE ST DOCKED DEVICE UNSOLICITED RESULTS Final Result Performing Organization Address [facility] Co de Phone Number [facility] [address] [place] [address] * Vancomycin, Peak, Plasma Please draw ~2 hours after 11/08 0600 dose of vancomycin finishes infusing.Consider obtaining level via peripheral stick. If peripheral stick is not feasible, please ensure that line is flushed well prior to drawing level.... (11/08/2024 9:24 AM EDT) Pathologist [facility] [place] Vancomycin, Peak, Plasma 29.1 20.0 - 40.0 [...] Performing Organization Address [facility] Phone Number [facility] [address] [place] [address] * (ABNORMAL) POCT glucose meter (11/08/2024 8:00 AM EDT) Pathologist [facility] [place] POCT Glucose 150(H) 74 - 99 mg/dL 11/08/2024 8:01 AM EDT [facility] Comment:Accuracy of a glucos e [...] 11/08/2024 8:01 AM EDT [facility] Language Asst ID Estefani Sheth 11/08/2024 8:01 AM EDT HEALTHCARE LAB Device ID [id number] 11/08/2024 8:01 AM EDT [facility]ALTH[facility]ARE LAB Specimen Type POC Capillary 11/08/2024 8:01 AM EDT [facility] Blood Capillary blood specimen / Unknown 11/08/2024 8:00 AM EDT 11/08/2024 8:01 AM EDT us Nathaly Nowak MD LAB POINT OF CARE TE ST DOCKED DEVICE UNSOLICITED RESULTS Final Result [facility] [address] [place] [address] * (ABNORMAL) CBC and Differential (11/08/2024 4:39 [...] Resu lt [facility] [address] [place] [address] * (ABNORMAL) Comprehensive Metabolic Panel, Plasma (11/08/2024 [...] Resu lt [facility] [address] [place] [address] * Vancomycin, Trough, Plasma Please draw ~30 [...] Resu lt Performing Organization Address City/[facility]/ZIP Co de Phone Number [facility] [address] [place] [address] * (ABNORMAL) POCT glucose meter (11/07/2024 7:26 [...] for testing. Comment 11/07/2024 7:28 PM EDT [facility] Language Asst ID Maximiliano Hansen II 11/07/2024 7:28 PM EDT [facility] Device ID [id number] 11/07/2024 7:28 PM EDT [facility] Specimen Type POC Capillary 11/07/2024 7:28 PM EDT [facility] Blood Capillary blood specimen / Unknown 11/07/2024 7:26 PM EDT 11/07/2024 7:28 PM EDT Nathaly Nowak MD LAB POINT OF CARE TE ST DOCKED DEVICE UNSOLICITED RESULTS Final Result Performing Organization Address City/[facility] Co de Phone Number [facility] [address] [place] [address] * (ABNORMAL) POCT glucose meter (11/07/2024 5:51 [...] Comment 11/07/2024 5:52 PM EDT HEALTHCARE LAB Language Asst ID Brigitte Castellon 11/07/2024 5:52 PM EDT [facility] Device ID [id number] 11/07/2024 5:52 PM EDT [facility] Specimen Type POC Capillary 11/07/2024 5:52 PM EDT [facility] Blood Capillary blood specimen / Unknown 11/07/2024 5:51 PM EDT 11/07/2024 5:52 PM EDT us Nathaly Nowak MD LAB POINT OF CARE TE ST DOCKED DEVICE UNSOLICITED RESULTS Final Result Performing Organization Address City/[facility] Co de Phone Number [facility] [address] [place] [address] * (ABNORMAL) POCT glucose meter (11/07/2024 4:47 [...] Comment 11/07/2024 4:48 PM EDT [facility]ALTH[facility]ARE LAB Language Asst ID Estefani Sheth 11/07/2024 4:48 PM EDT [facility]ALTH[facility]ARE LAB Device ID [id number] 11/07/2024 4:48 PM EDT [facility] Specimen Type POC Capillary 11/07/2024 4:48 PM EDT [facility] Blood Capillary blood specimen / Unknown 11/07/2024 4:47 PM EDT 11/07/2024 4:48 PM EDT Nathaly Nowak MD LAB POINT OF CARE TE ST DOCKED DEVICE UNSOLICITED RESULTS Final Result Performing Organization Address City/[facility]/ZIP Co de Phone Number [facility] [address] [place] [address] * (ABNORMAL) POCT glucose meter (11/07/2024 12:22 [...] Comment 11/07/2024 12:24 PM EDT [facility]ALTH[facility]ARE LAB Language Asst ID Estefani Sheth 11/07/2024 12:24 PM EDT [facility]ALTH[facility]ARE LAB Device ID [id number] 11/07/2024 12:24 PM EDT HEALTHCARE LAB Specimen Type POC Capillary 11/07/2024 12:24 PM EDT [facility] Blood Capillary blood specimen / Unknown 11/07/2024 12:22 PM EDT 11/07/2024 12:24 PM EDT us Nathaly Nowak MD LAB POINT OF CARE TE ST DOCKED DEVICE UNSOLICITED RESULTS Final Result Performing Organization Address City/State/[facility] Co de Phone Number HEALTHCARE LAB [address] [place] [address] * (ABNORMAL) CBC and Differential (11/07/2024 11:37 AM EDT) [facility] WBC Count 9.96 3.70 - 10.30 10*3/uL [...] Resu lt [facility] [address] [place] [address] * (ABNORMAL) Comprehensive Metabolic Panel, Plasma (11/07/2024 [...] Resu lt [facility] [address] [place] [address] * Type and Screen (11/07/2024 11:37 AM EDT) ABO/Rh A Negative 11/06/2024 8:56 AM EDT BLOOD BANK Antibody Screen Negative 11/06/2024 8:56 AM EDT BLOOD BANK Specimen Expiration 11/10/2024 23:59 11/06/2024 8:56 AM EDT BLOOD BANK Blood Venous blood specimen / Unknown Venipuncture / Unknown 11/07/2024 11:37 AM EDT 11/07/2024 11:50 AM EDT [facility] BLOOD BANK TEST ORDERABLES F inal Result Performing Organization Address City/[facility] Co de Phone Number BLOOD BANK [address] * (ABNORMAL) POCT glucose meter (11/07/2024 [...] Comment 11/07/2024 10:36 AM EDT HEALTHCARE LAB Language Asst ID Joy Iraheta 11/07/2024 10:36 AM EDT HEALTHCARE LAB Device ID [id number] 11/07/2024 10:36 AM EDT [facility] Specimen Type POC Capillary 11/07/2024 10:36 AM EDT [facility] Blood Capillary blood specimen / Unknown 11/07/2024 10:34 AM EDT 11/07/2024 10:36 AM EDT Nathaly Nowak MD LAB POINT OF CARE TE ST DOCKED DEVICE UNSOLICITED RESULTS Final Result Performing Organization Address City/[facility]/ZIP Co de Phone Number [facility] [address] [place] [address] * (ABNORMAL) POCT glucose meter (11/07/2024 9:34 [...] Comment 11/07/2024 9:36 AM EDT HEALTHCARE LAB Language Asst ID Brigitte Castellon 11/07/2024 9:36 AM EDT HEALTHCARE LAB Device ID [id number] 11/07/2024 9:36 AM EDT [facility] Specimen Type POC Capillary 11/07/2024 9:36 AM EDT HEALTHCARE LAB Blood Capillary blood specimen / Unknown 11/07/2024 9:34 AM EDT 11/07/2024 9:36 AM EDT Nathaly Nowak MD LAB POINT OF CARE TE ST DOCKED DEVICE UNSOLICITED RESULTS Final Result Performing Organization Address City/State/[facility] Co de Phone Number [facility] [address] [place] [address] * (ABNORMAL) POCT glucose meter (11/07/2024 8:20 [...] Comment 11/07/2024 8:22 AM EDT HEALTHCARE LAB Language Asst ID Estefani Sheth 11/07/2024 8:22 AM EDT HEALTHCARE LAB Device ID [id number] 11/07/2024 8:22 AM EDT HEALTHCARE LAB Specimen Type POC Capillary 11/07/2024 8:22 AM EDT HEALTHCARE LAB Blood Capillary blood specimen / Unknown 11/07/2024 8:20 AM EDT 11/07/2024 8:22 AM EDT Nathaly Nowak MD LAB POINT OF CARE TE ST DOCKED DEVICE UNSOLICITED RESULTS Final Result Performing Organization Address City/[facility] Co de Phone Number HEALTHCARE LAB [address] [place] [address] * (ABNORMAL) POCT glucose meter (11/07/2024 7:21 [...] for testing. Comment 11/07/2024 7:22 AM EDT [facility] Language Asst ID Brigitte Castellon 11/07/2024 7:22 AM EDT [facility] Device ID [id number] 11/07/2024 7:22 AM EDT [facility] Specimen Type POC Capillary 11/07/2024 7:22 AM EDT [facility] Blood Capillary blood specimen / Unknown 11/07/2024 7:21 AM EDT 11/07/2024 7:22 AM EDT Nathaly Nowak MD LAB POINT OF CARE TE ST DOCKED DEVICE UNSOLICITED RESULTS Final Result Performing Organization Address City/[facility] Co de Phone Number [facility] [address] [place] [address] * (ABNORMAL) POCT glucose meter (11/07/2024 6:25 [...] Comment 11/07/2024 6:27 AM EDT HEALTHCARE LAB Language Asst ID Nelda Gerber 11/08/19 6:27 AM EDT HEALTHCARE LAB Device ID [id number] 11/07/2024 6:27 AM EDT HEALTHCARE LAB Specimen Type POC Capillary 11/07/2024 6:27 AM EDT HEALTHCARE LAB Blood Capillary blood specimen / Unknown 11/07/2024 6:25 AM EDT 11/07/2024 6:27 AM EDT Nathaly Noawk MD LAB POINT OF CARE TE ST DOCKED DEVICE UNSOLICITED RESULTS Final Result Performing Organization Address City/[facility]/ZIP Co de Phone Number HEALTHCARE LAB [address] [place] [address] * (ABNORMAL) POCT glucose meter (11/07/2024 5:03 [...] Comment 11/07/2024 5:08 AM EDT HEALTHCARE LAB Language Asst ID Nelda Gerber 11/08/19 5:08 AM EDT HEALTHCARE LAB Device ID [id number] 11/07/2024 5:08 AM EDT HEALTHCARE LAB Specimen Type POC Capillary 11/07/2024 5:08 AM EDT HEALTHCARE LAB Blood Capillary blood specimen / Unknown 11/07/2024 5:03 AM EDT 11/07/2024 5:08 AM EDT Nathaly Nowak MD LAB POINT OF CARE TE ST DOCKED DEVICE UNSOLICITED RESULTS Final Result Performing Organization Address City/[facility]/ZIP Co de Phone Number HEALTHCARE LAB [address] [place] [address] * (ABNORMAL) POCT glucose meter (11/07/2024 4:16 AM EDT) Pathologist [facility] [place] POCT Glucose 142(H) 74 - 99 mg/dL [...] Comment 11/07/2024 4:18 AM EDT HEALTHCARE LAB Language Asst ID Nelda Gerber 11/08/19 4:18 AM EDT [facility] Device ID [id number] 11/07/2024 4:18 AM EDT [facility] Specimen Type POC Capillary 11/07/2024 4:18 AM EDT [facility] Blood Capillary blood specimen / Unknown 11/07/2024 4:16 AM EDT 11/07/2024 4:18 AM EDT us Nathaly Nowak MD LAB POINT OF CARE TE ST DOCKED DEVICE UNSOLICITED RESULTS Final Result Performing Organization Address City/State/[facility] Co de Phone Number HEALTHCARE LAB [address] [place] [address] * (ABNORMAL) POCT glucose meter (11/07/2024 3:21 AM EDT) Pathologist [facility] [place] POCT Glucose 141(H) 74 - 99 mg/dL [...] 11/07/2024 3:23 AM EDT [facility] Language Asst ID Nelda Gerber 11/08/19 3:23 AM EDT [facility] Device ID [id number] 11/07/2024 3:23 AM EDT [facility] Specimen Type POC Capillary 11/07/2024 3:23 AM EDT [facility] Blood Capillary blood specimen / Unknown 11/07/2024 3:21 AM EDT 11/07/2024 3:23 AM EDT Nathaly Nowak MD LAB POINT OF CARE TE ST DOCKED DEVICE UNSOLICITED RESULTS Final Result HEALTHCARE LAB [address] [place] [address] * (ABNORMAL) POCT glucose meter (11/07/2024 2:10 [...] for testing. Comment 11/07/2024 2:12 AM EDT [facility] Language Asst ID Nelda Gerber 11/08/19 25 2:12 AM EDT [facility] Device ID [id number] 11/07/2024 2:12 AM EDT [facility] Specimen Type POC Capillary 11/07/2024 2:12 AM EDT [facility] Blood Capillary blood specimen / Unknown 11/07/2024 2:10 AM EDT 11/07/2024 2:12 AM EDT Nathaly Nowak MD LAB POINT OF CARE TE ST DOCKED DEVICE UNSOLICITED RESULTS Final Result [facility]ARE LAB [address] [place] [address] * (ABNORMAL) POCT glucose meter (11/07/2024 1:08 [...] Comment 11/07/2024 1:10 AM EDT HEALTHCARE LAB Language Asst ID Nelda Gerber 11/08/19 1:10 AM EDT HEALTHCARE LAB Device ID [id number] 11/07/2024 1:10 AM EDT HEALTHCARE LAB Specimen Type POC Capillary 11/07/2024 1:10 AM EDT HEALTHCARE LAB Blood Capillary blood specimen / Unknown 11/07/2024 1:08 AM EDT 11/07/2024 1:10 AM EDT us Nathaly Nowak MD LAB POINT OF CARE TE ST DOCKED DEVICE UNSOLICITED RESULTS Final Result Performing Organization Address City/State/[facility] Co de Phone Number HEALTHCARE LAB [address] [place] [address] * (ABNORMAL) POCT glucose meter (11/07/2024 12:10 [...] Comment 11/07/2024 12:13 AM EDT HEALTHCARE LAB Language Asst ID Nelda Gerber 11/08/19 12:13 AM EDT HEALTHCARE LAB Device ID [id number] 11/07/2024 12:13 AM EDT HEALTHCARE LAB Specimen Type POC Capillary 11/07/2024 12:13 AM EDT HEALTHCARE LAB Blood Capillary blood specimen / Unknown 11/07/2024 12:10 AM EDT 11/07/2024 12:13 AM EDT us Nathaly Nowak MD LAB POINT OF CARE TE ST DOCKED DEVICE UNSOLICITED RESULTS Final Result [facility]ALTH[facility]ARE LAB [address] [place] [address] * (ABNORMAL) POCT glucose meter (11/06/2024 11:14 PM EDT) Pathologist [facility] [place] POCT Glucose 71(L) 74 - 99 mg/dL 11/06/2024 11:16 PM EDT [facility] Comment:Accuracy of a glucos e [...] for testing. Comment 11/06/2024 11:16 PM EDT [facility] Language Asst ID Nelda Gerber 11/07/19 25 11:16 PM EDT [facility] Device ID [id number] 11/06/2024 11:16 PM EDT [facility] Specimen Type POC Capillary 11/06/2024 11:16 PM EDT [facility] Blood Capillary blood specimen / Unknown 11/06/2024 11:14 PM EDT 11/06/2024 11:16 PM EDT Nathaly Nowak MD LAB POINT OF CARE TE ST DOCKED DEVICE UNSOLICITED RESULTS Final Result [facility]ALTHCARE LAB [address] [place] [address] * (ABNORMAL) POCT glucose meter (11/06/2024 10:07 [...] 11/06/2024 10:09 PM EDT [facility] Language Asst ID Nelda Gerber 11/07/19 10:09 PM EDT HEALTHCARE LAB Device ID [id number] 11/06/2024 10:09 PM EDT HEALTHCARE LAB Specimen Type POC Capillary 11/06/2024 10:09 PM EDT HEALTHCARE LAB Blood Capillary blood specimen / Unknown 11/06/2024 10:07 PM EDT 11/06/2024 10:09 PM EDT Nathaly Nowak MD LAB POINT OF CARE TE ST DOCKED DEVICE UNSOLICITED RESULTS Final Result Performing Organization Address City/[facility]/ZIP Co de Phone Number [facility] [address] [place] [address] * (ABNORMAL) POCT glucose meter (11/06/2024 8:22 [...] Comment 11/06/2024 8:25 PM EDT HEALTHCARE LAB Language Asst ID Nelda Gerber 11/07/19 8:25 PM EDT HEALTHCARE LAB Device ID [id number] 11/06/2024 8:25 PM EDT HEALTHCARE LAB Specimen Type POC Capillary 11/06/2024 8:25 PM EDT HEALTHCARE LAB Blood Capillary blood specimen / Unknown 11/06/2024 8:22 PM EDT 11/06/2024 8:25 PM EDT Nathaly Nowak MD LAB POINT OF CARE TE ST DOCKED DEVICE UNSOLICITED RESULTS Final Result Performing Organization Address City/[facility]/ZIP Co de Phone Number [facility] [address] [place] [address] * (ABNORMAL) POCT glucose meter (11/06/2024 7:31 [...] Comment 11/06/2024 7:32 PM EDT HEALTHCARE LAB Language Asst ID Nelda Gerber 11/07/19 7:32 PM EDT HEALTHCARE LAB Device ID [id number] 11/06/2024 7:32 PM EDT HEALTHCARE LAB Specimen Type POC Capillary 11/06/2024 7:32 PM EDT [facility] Blood Capillary blood specimen / Unknown 11/06/2024 7:31 PM EDT 11/06/2024 7:32 PM EDT Nathaly Nowak MD LAB POINT OF CARE TE ST DOCKED DEVICE UNSOLICITED RESULTS Final Result Performing Organization Address City/State/[facility] Co de Phone Number HEALTHCARE LAB [address] [place] [address] * (ABNORMAL) POCT glucose meter (11/06/2024 6:15 PM EDT) [facility] POCT Glucose 368(H) 74 - 99 mg/dL [...] Comment 11/06/2024 6:17 PM EDT HEALTHCARE LAB Language Asst ID Estefani Sheth 11/06/2024 6:17 PM EDT HEALTHCARE LAB Device ID [id number] 11/06/2024 6:17 PM EDT HEALTHCARE LAB Specimen Type POC Capillary 11/06/2024 6:17 PM EDT HEALTHCARE LAB Blood Capillary blood specimen / Unknown 11/06/2024 6:15 PM EDT 11/06/2024 6:17 PM EDT Nathaly Nowak MD LAB POINT OF CARE TE ST DOCKED DEVICE UNSOLICITED RESULTS Final Result Performing Organization Address City/[facility] Co de Phone Number HEALTHCARE LAB [address] [place] [address] * (ABNORMAL) POCT glucose meter (11/06/2024 4:57 [...] for testing. Comment 11/06/2024 4:58 PM EDT [facility] Language Asst ID Estefani Sheth 11/06/2024 4:58 PM EDT HEALTHCARE LAB Device ID [id number] 11/06/2024 4:58 PM EDT [facility] Specimen Type POC Capillary 11/06/2024 4:58 PM EDT [facility] Blood Capillary blood specimen / Unknown 11/06/2024 4:57 PM EDT 11/06/2024 4:58 PM EDT Nathaly Nowak MD LAB POINT OF CARE TE ST DOCKED DEVICE UNSOLICITED RESULTS Final Result HEALTHCARE LAB [address] [place] [address] * (ABNORMAL) POCT glucose meter (11/06/2024 2:08 [...] Comment 11/06/2024 2:09 PM EDT HEALTHCARE LAB Language Asst ID Brigitte Castellon 11/06/2024 2:09 PM EDT HEALTHCARE LAB Device ID [id number] 11/06/2024 2:09 PM EDT HEALTHCARE LAB Specimen Type POC Capillary 11/06/2024 2:09 PM EDT HEALTHCARE LAB Blood Capillary blood specimen / Unknown 11/06/2024 2:08 PM EDT 11/06/2024 2:09 PM EDT Nathaly Nowak MD LAB POINT OF CARE TE ST DOCKED DEVICE UNSOLICITED RESULTS Final Result Performing Organization Address City/State/[facility] Co de Phone Number HEALTHCARE LAB [address] [place] [address] * (ABNORMAL) POCT glucose meter (11/06/2024 12:27 [...] Comment 11/06/2024 12:28 PM EDT HEALTHCARE LAB Language Asst ID Jacinta Galloway 11/06/2024 12:28 PM EDT HEALTHCARE LAB Device ID [id number] 11/06/2024 12:28 PM EDT HEALTHCARE LAB Specimen Type POC Capillary 11/06/2024 12:28 PM EDT HEALTHCARE LAB Blood Capillary blood specimen / Unknown 11/06/2024 12:27 PM EDT 11/06/2024 12:28 PM EDT Nathaly Nowak MD LAB POINT OF CARE TE ST DOCKED DEVICE UNSOLICITED RESULTS Final Result [facility] [address] [place] [address] * (ABNORMAL) Fungal Culture, Tissue and ISIDRO (11/06/2024 11:34 AM EDT) Culture Reading 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 These results have been appended to the previously preliminary verified report. Edited result: Previously reported as Yeast on 11/11/2024 at 1317 EDT. ISIDRO No fungal elements seen 12/05/2024 8:36 AM EDT [facility] Tissue [...] GENERAL [facility]DE [facility] Final Result [facility] [address] [place] [address] * (ABNORMAL) Tissue Culture and Gram Stain (11/06/2024 11:34 AM EDT) Culture Moderate Growth 7:35 AM EDT [facility] Culture 2+ Enterobacter cloacae complex(A) ANGÉLICA 11/15/2024 7:35 AM EDT [facility] Comment: This isolate has been identified using the FDA Approved [employer] [place] System The organism value for this [...] by MALDI tof mass spectrometry using the Bio[employer] database and is for research use only. [...] GENERAL ATIYA FRITZ Edited Result - Final [facility] [address] [place] [address] * (ABNORMAL) Anaerobic Culture (11/06/2024 11:34 AM EDT) Culture No anaerobes isolated 11/14/2024 1:25 PM EDT [facility] Culture Staphylococcus pseudintermedius( A) 11/14/2024 1:25 PM EDT [facility] Comment: This result was determined by MALDI tof mass spectrometry using the [employer] database and is for research use only. [...] GENERAL ATIYA FRITZ Edited Result - Final [facility] [address] [place] [address] * (ABNORMAL) Routine Culture and Gram Stain (11/06/2024 11:29 AM EDT) Culture Moderate Growth 5:29 PM EDT [facility] Culture Enterobacter cloacae complex(A) 11/08/2024 5:29 PM EDT [facility] Comment: This isolate has been identified using the FDA Approved [employer] System For susceptibility results refer to: - [id number] The organism value for this result has [...] ATIYA FRITZ Final Result Performing Organization Address [facility] Co de Phone Number [facility] [address] [place] [address] * Fungal Culture, Routine (11/06/2024 11:29 AM EDT) Culture No Fungal Growth at 1 Week 11/13/2024 8:29 AM EDT [facility] Swab Topography unknown / Unknown 11/06/2024 11:29 AM EDT 11/06/2024 12:19 PM EDT Comment:Pre-op diagnosis: Surgical wound infection [T81.49XA] us Nathaly Nowak MD LAB MICROBIOLOGY - GENERAL ORDE RABONEIDA Final Result Performing Organization Address [facility] Co de Phone Number [facility] [address] [place] [address] * (ABNORMAL) Anaerobic Culture (11/06/2024 11:29 AM EDT) Culture No anaerobes isolated 11/14/2024 1:25 PM EDT [facility] Culture Streptococcus mitis/oralis group(A) 11/14/2024 1:25 PM EDT [facility] Comment: This result was determined by MALDI tof mass spectrometry using the BioVascular database and is for research use only. [...] has been identified using the FDA Approved [employer] [place] System This is an appended report. [...] Edited Result - Final Performing Organization Address [facility]/ZIP Co de Phone Number [facility] [address] [place] [address] * Routine Culture and Gram Stain (11/06/2024 [...] ATIYA FRITZ Final Result Performing Organization Address [facility] Co de Phone Number [facility] [address] [place] [address] * Fungal Culture, Routine (11/06/2024 11:28 AM EDT) Culture No Fungal Growth at 1 Week 11/13/2024 8:29 AM EDT [facility] Swab Topography unknown / Unknown 11/06/2024 11:28 AM EDT 11/06/2024 12:20 PM EDT Comment:Pre-op diagnosis: Surgical wound infection [T81.49XA] Nathaly Nowak MD LAB MICROBIOLOGY - GENERAL ORDE LAM Final Result Performing Organization Address City/[facility]/ZIP Co de Phone Number [facility] [address] [place] [address] * Anaerobic Culture (11/06/2024 11:28 AM EDT) Culture No growth at day 4 11/13/2024 12:53 PM EDT [facility] Swab Topography unknown / Unknown 11/06/2024 11:28 AM EDT 11/06/2024 12:20 PM EDT Comment:Pre-op diagnosis: Surgical wound infection [T81.49XA] us Nathaly Nowak MD LAB MICROBIOLOGY - GENERAL [facility] Final Result Performing Organization Address City/[facility]/ZIP Co de Phone Number [facility] [address] [place] [address] * (ABNORMAL) POCT glucose meter (11/06/2024 10:16 AM EDT) [facility] POCT Glucose 194(H) 74 - 99 mg/dL [...] Comment 11/06/2024 10:18 AM EDT HEALTHCARE LAB Language Asst ID Lacy Griffin 11/07/19 10:18 AM EDT HEALTHCARE LAB Device ID [id number] 11/06/2024 10:18 AM EDT HEALTHCARE LAB Specimen Type POC Capillary 11/06/2024 10:18 AM EDT HEALTHCARE LAB Blood Capillary blood specimen / Unknown 11/06/2024 10:16 AM EDT 11/06/2024 10:18 AM EDT us Nathaly Nowak MD LAB POINT OF CARE TE ST DOCKED DEVICE UNSOLICITED RESULTS Final Result Performing Organization Address City/[facility]/ZIP Co de Phone Number HEALTHCARE LAB [address] [place] [address] * (ABNORMAL) POCT glucose meter (11/06/2024 5:58 [...] 11/06/2024 6:01 AM EDT [facility] Language Asst ID Raj Laird 11/07/19 6:01 AM EDT HEALTHCARE LAB Device ID [id number] 11/06/2024 6:01 AM EDT HEALTHCARE LAB Specimen Type POC Capillary 11/06/2024 6:01 AM EDT HEALTHCARE LAB Blood Capillary blood specimen / Unknown 11/06/2024 5:58 AM EDT 11/06/2024 6:01 AM EDT Ntahaly Nowak MD LAB POINT OF CARE TE ST DOCKED DEVICE UNSOLICITED RESULTS Final Result [facility]ALTH[facility]ARE LAB [address] [place] [address] * (ABNORMAL) POCT glucose meter (11/06/2024 5:36 AM EDT) [facility] POCT Glucose 202(H) 74 - 99 mg/dL [...] 11/06/2024 5:38 AM EDT [facility] Language Asst ID Shahid Sanches 11/06/2024 5:38 AM EDT [facility] Device ID [id number] 11/06/2024 5:38 AM EDT [facility] Specimen Type POC Capillary 11/06/2024 5:38 AM EDT HEALTHCARE LAB Blood Capillary blood specimen / Unknown 11/06/2024 5:36 AM EDT 11/06/2024 5:38 AM EDT us Nathaly Nowak MD LAB POINT OF CARE TE ST DOCKED DEVICE UNSOLICITED RESULTS Final Result Performing Organization Address City/[facility] Co de Phone Number [facility] [address] [place] [address] * (ABNORMAL) Hemoglobin A1c (11/06/2024 1:07 AM [...] Adults <6.0% Children and Adolescents <7.5% Source: [place] [employer]. Standards of medical care in diabetes,2017. Diabetes Care.2017:40 (suppl 1):S1-S135. us Nathaly Nowak MD LAB BLOOD ORDERABLES Final Resu lt Performing Organization Address City/[facility] Co de Phone Number [facility] [address] [place] [address] * Blood Culture (Aerobic/Anaerobet Set) (11/06/2024 1:07 AM EDT) Culture No growth at day 5 11/11/2024 2:49 AM EDT [facility] Blood Structure of right hand / Unknown Venipuncture / Unknown 11/06/2024 1:07 AM EDT 11/06/2024 2:36 AM EDT us Nathaly Nowak MD LAB MICROBIOLOGY - GENERAL ORDE RABLES Final Result [facility] [address] [place] [address] * Blood Culture (Aerobic/Anaerobet Set) (11/06/2024 1:07 AM EDT) Pathologist [facility] [place] Culture No growth at day 5 11/11/2024 3:01 AM EDT [facility] Blood Structure of antecubital vein / Unknown Venipuncture / Unknown 11/06/2024 1:07 AM EDT 11/06/2024 2:36 AM EDT us Nathaly Nowak MD LAB MICROBIOLOGY - GENERAL [facility] L[facility] Final Result [facility] [address] [place] [address] * (ABNORMAL) Basic metabolic panel (11/06/2024 1:07 [...] Resu lt Performing Organization Address City/[facility]/ZIP Co de Phone Number [facility] [address] [place] [address] * Phosphorus (11/06/2024 1:07 AM EDT) Phosphorus, Plasma 3.2 2.5 - 4.5 mg/dL 11/06/2024 1:41 AM EDT [facility] Blood Venous blood specimen / Unknown Venipuncture / Unknown 11/06/2024 1:07 AM EDT 11/06/2024 1:12 AM EDT Nathaly Nowak MD LAB BLOOD ORDERABLES Final Resu lt Performing Organization Address [facility] Co de Phone Number [facility] [address] [place] [address] * Magnesium (11/06/2024 1:07 AM EDT) Magnesium, Plasma 2.2 1.9 - 2.4 mg/dL 11/06/2024 1:41 AM EDT [facility] Blood Venous blood specimen / Unknown Venipuncture / Unknown 11/06/2024 1:07 AM EDT 11/06/2024 1:12 AM EDT Nathaly Nowak MD LAB BLOOD ORDERABLES Final Resu lt Performing Organization Address City/[facility]/ZIP Co de Phone Number [facility] [address] [place] [address] * (ABNORMAL) CBC (11/06/2024 1:07 AM EDT) [facility] Signature WBC Count 9.70 3.70 - [...] Resu lt [facility] [address] [place] [address] * Gold Top (11/06/2024 12:58 AM EDT) Extra Hold for add-ons 11/06/2024 3:21 AM EDT [facility] Comment:Auto resulted. Blood Venous blood specimen / Unknown 11/06/2024 12:58 AM EDT 11/06/2024 1:13 AM EDT us Nathaly Nowak MD LAB BLOOD ORDERABLES Final Resu lt [facility] [address] [place] [address] * Gold Top (11/06/2024 12:58 AM EDT) Extra Hold for add-ons 11/06/2024 3:21 AM EDT [facility] Comment:Auto resulted. Blood Venous blood specimen / Unknown 11/06/2024 12:58 AM EDT 11/06/2024 1:13 AM EDT us Nathaly Nowak MD LAB BLOOD ORDERABLES Final Resu lt Performing Organization Address City/[facility]/ZIP Co de Phone Number [facility] [address] [place] [address] * Light Green Top (11/06/2024 12:58 AM EDT) Extra Hold for add-ons 11/06/2024 3:21 AM EDT [facility] Comment:Auto resulted. Blood Venous blood specimen / Unknown 11/06/2024 12:58 AM EDT 11/06/2024 1:13 AM EDT us Nathaly Nowak MD LAB BLOOD ORDERABLES Final Resu lt Performing Organization Address City/[facility]/ZIP Co de Phone Number [facility] [address] [place] [address] * Light Blue Top (11/06/2024 12:58 AM EDT) Extra Hold for add-ons 11/06/2024 3:21 AM EDT [facility] Comment:Auto resulted. Blood Venous blood specimen / Unknown 11/06/2024 12:58 AM EDT 11/06/2024 1:13 AM EDT us Nathaly Nowak MD LAB BLOOD ORDERABLES Final Resu lt Performing Organization Address [facility] Co de Phone Number [facility] [address] [place] [address] * Light Blue Top (11/06/2024 12:58 AM EDT) Pathologist [facility] [place] Extra Hold for add-ons 11/06/2024 3:21 AM EDT [facility] Comment:Auto resulted. Blood Venous blood specimen / Unknown 11/06/2024 12:58 AM EDT 11/06/2024 1:13 AM EDT Nathaly Nowak MD LAB BLOOD ORDERABLES Final Resu lt Performing Organization Address [facility] de Phone Number [facility] [address] [place] [address] * (ABNORMAL) POCT glucose meter (11/06/2024 12:45 AM EDT) Pathologist [facility] [place] POCT Glucose 204(H) 74 - 99 mg/dL [...] 11/06/2024 12:48 AM EDT [facility] Language Asst ID Raj Laird 11/07/19 12:48 AM EDT [facility] Device ID [id number] 11/06/2024 12:48 AM EDT [facility] Specimen Type POC Capillary 11/06/2024 12:48 AM EDT [facility] Blood Capillary blood specimen / Unknown 11/06/2024 12:45 AM EDT 11/06/2024 12:48 AM EDT Nathaly Nowak MD LAB POINT OF CARE TE ST DOCKED DEVICE UNSOLICITED RESULTS Final Result [facility] [address] [place] [address] documented in this encounter Visit Diagnoses Diagnosis [...] Intravenous, Every 12 hours, First dose on [facility] 11/09/24 at 1515, Until Discontinued, Routine Given 11/14/2024 2:42 PM EDT 10 mL Given 11/14/2024 3:03 AM EDT 10 mL Given 11/13/2024 4:43 PM EDT 10 mL Sodium Hypochlorite (Dakin's (HALF-Strength)) external solution 1 Application Irrigation, Daily, First dose on [facility] 11/09/24 at 0945, Until Discontinued, [...] Provider: Devora Bo)[phone] (Not Given - Provider: Jonatahn Vale RN - Reason: Patient/family refused) 0518 [...] Provider: Devora Bo) 0856 (Given - Provider: Yazmni Bhatt RN)1730 (Canceled Entry - Provider: Automatic [...] - Provider: Devora Bo)1805 (Given - Provider: eDvora Bo)2122 (Given - Provider: Jonathan Vale, CHRISTIAN) [...] documented as of this encounter Care Teams Glass Lathe Operator Relationship Specialty Start Date End Date Asad Victor MD [address] [place] [address] PCP - General 10/07/22 documented as of this encounter
--- OUTSIDE RECORDS SUMMARY | 2024-11-20 14:15 | XMS_ITS | Encounter Summary ---
Author Organization [employer] ([place], [place], [place], [place]) Address [address] [place] [address] Care Team Providers Care Coppersmith Apprentice Name Role Phone Unavailable Primary Care Provider Unavailabl e Reason for Visit * Reason Comments Wound Care Nurse visit for woun d vac change, wound care and dressing change Encounter Details Date Type Department Care Team (Late st Contact Info) Description 11/20/2024 2:15 PM EDT Clinical Support [facility] 1 [place] [address] Jerry Monroe Jr., MD [address] [place] [address] Non-pressure chronic ulcer of skin of [...] Care Team (Late st Contact Info) Description 12/11/2024 2:40 PM EDT Office Visit [facility] 1 [place] [address] Jerry Monroe Jr., MD [address] [place] [address] 12/13/2024 3:30 PM EDT Clinical Support [facility] 1 [place] [address] 12/16/2024 3:30 PM EDT Clinical Support [facility] 1 [place] [address] 12/18/2024 3:00 PM EDT Office Visit [facility] 1 [place] [address] Jerry Monroe Jr., MD [address] [place] [address] 12/20/2024 3:30 PM EDT Clinical Support 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
--- OUTSIDE RECORDS SUMMARY | 2024-11-22 16:15 | XMS_ITS | Encounter Summary ---
Author Organization [employer] ([place], [place], [place], [place]) Address [address] [place] [address] Care Team Providers Care Computer Numeric Control Setter Name Role Phone Unavailable Primary Care Provider Unavailabl e Reason for Visit * Reason Comments Wound Care Encounter Details Date Type Department Care Team (Late st Contact Info) Description 11/22/2024 4:15 PM EDT Clinical Support [facility] 1 [place] [address] Jerry Monroe Jr., MD [address] [place] [address] Non-pressure chronic ulcer of skin of [...] Description 12/11/2024 2:40 PM EDT Office Visit [facility] 1 [place] [address] Jerry Monroe Jr., MD [address] [place] [address] 12/13/2024 3:30 PM EDT Clinical Support [facility] [place] 1 [place] [address] 12/16/2024 3:30 PM EDT Clinical Support [facility] [place] 1 [place] [address] 12/18/2024 3:00 PM EDT Office Visit [facility] [place] 1 [place] [address] Jerry Monroe Jr., MD [address] [place] [address] 12/20/2024 3:30 PM EDT Clinical Support [facility] 1 [place] [address] documented as of this encounter Procedures Procedure [...]
--- OUTSIDE RECORDS SUMMARY | 2024-11-29 16:00 | XMS_ITS | Encounter Summary ---
Author Organization [employer] ([place], [place], [place], [place]) Address [address] [place] [address] Care Team Providers Care Packing Shed Supervisor Name Role Phone Unavailable Primary Care Provider Unavailabl e Reason for Visit * Reason Comments Wound Care Encounter Details Date Type Department Care Team (Late st Contact Info) Description 11/29/2024 4:00 PM EDT Clinical Support [facility] 1 [place] [address] Jerry Monroe Jr., MD [address] [place] [address] Social History Tobacco Use Types Packs/Day [...] health nurse( if you have home health) [facility] * Nallely [...] Description 12/11/2024 2:40 PM EDT Office Visit [facility] 1 [place] [address] Jerry Monroe Jr., MD [address] [place] [address] 12/13/2024 3:30 PM EDT Clinical Support [facility] 1 [place] [address] 12/16/2024 3:30 PM EDT Clinical Support [facility] 1 [place] [address] 12/18/2024 3:00 PM EDT Office Visit [facility] 1 [place] [address] Jerry Monroe Jr., MD [address] [place] [address] 12/20/2024 3:30 PM EDT Clinical Support [facility] 1 [place] [address] documented as of this encounter Visit Diagnoses Not on filedocumented in this encounter
--- OUTSIDE RECORDS SUMMARY | 2024-12-02 14:15 | XMS_ITS | Encounter Summary ---
Author Organization [employer] ([place], [place], [place], [place]) Address [address] [place] [address] Care Team Providers Care Mock Up Assembler Name Role Phone Unavailable Primary Care Provider Unavailabl e Reason for Visit * Reason Comments Wound Care Nurse visit for woun d vac and dressing change, wound care Encounter Details Date Type Department Care Team (Late st Contact Info) Description 12/02/2024 2:15 PM EDT Clinical Support [facility] 1 [place] [address] Jerry Monroe Jr., MD [address] [place] [address] Non-pressure chronic ulcer of skin of [...] Description 12/11/2024 2:40 PM EDT Office Visit [facility] [place] 1 [place] [address] Jerry Monroe Jr., MD [address] [place] [place] [address] 12/13/2024 3:30 PM EDT Clinical Support [facility] [place] 1 [place] [address] 12/16/2024 3:30 PM EDT Clinical Support [facility] [place] 1 [place] [address] 12/18/2024 3:00 PM EDT Office Visit [facility] [place] 1 [place] [address] Jerry Monroe Jr., MD [address] [place] [place] [address] 12/20/2024 3:30 PM EDT Clinical Support [facility] 1 [place] [address] documented as of this encounter Visit Diagnoses Diagnosis 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
--- OUTSIDE RECORDS SUMMARY | 2024-12-04 13:40 | XMS_ITS | Encounter Summary ---
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 Patient was admitted to the [facility] on November 05, 2024 and [...] line. Patient is getting daily infusions at [facility] through his PICC line for [...] provider verified the correct patient, procedure, equipment, sales support engineer, and site/side marked as required. [...] provider verified the correct patient, procedure, equipment, sales support engineer, and site/side marked as required. [...] Description 12/11/2024 2:40 PM EDT Office Visit [facility] [address] [place] [phone] Jerry Monroe Jr., MD [address] [place] [address] 12/13/2024 3:30 PM EDT Clinical Support [facility] 1 [place] [address] 12/16/2024 3:30 PM EDT Clinical Support [facility] 1 [place] [address] 12/18/2024 3:00 PM EDT Office Visit [facility] [place] [address] [place] [address] Jerry Monroe Jr., MD [address] [place] [address] 12/20/2024 3:30 PM EDT Clinical Support [facility] 1 [place] [address] documented as of this encounter Procedures Procedure Name Priority Date/Time Associated Diagnosis Comments [place] DEBRIDEMENT MUSCLE &/FASCIA EA ADDL 20 SQ CM Routine 12/04/2024 1:40 PM EDT 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) Localized tissue (HCC) Other specified local infections of the skin and subcutaneous tissue CA DEBRIDEMENT MUSCLE &/FASCIA 1ST 20 SQ CM/< Routine 12/04/2024 1:40 PM EDT 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) Localized tissue (HCC) Other specified local infections of the skin and subcutaneous tissue CA DEBRIDEMENT MUSCLE &/FASCIA EA ADDL 20 SQ CM Routine 12/04/2024 1:40 PM EDT 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) Localized tissue (HCC) Other specified local infections of the skin and subcutaneous tissue CA DEBRIDEMENT MUSCLE &/FASCIA 1ST 20 SQ CM/< Routine 12/04/2024 1:40 PM EDT 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 [...] MD PROCEDURE/MINOR SURGICAL ORDERABLES Final Result * CA DEBRIDEMENT MUSCLE &/FASCIA 1ST 20 SQ CM/<, [place] DEBRIDEMENT MUSCLE &/FASCIA EA ADDL 20SQ CM (12/04/2024 1:40 PM EDT) Narrative Jerry Monroe Jr., MD - 12/04/2024 1:40 PM EDT [...] provider verified the correct patient, procedure, equipment, sales support engineer, and site/side marked as required. [...]
--- OUTSIDE RECORDS SUMMARY | 2024-12-09 15:30 | XMS_ITS | Encounter Summary ---
Author Organization [employer] ([place], [place], [place], [place]) Address [address] [place] [address] Care Team Providers Care Laboratory Sample Carrier Name Role Phone Unavailable Primary Care Provider Unavailabl e Reason for Visit * Reason Comments Wound Care Encounter Details Date Type Department Care Team (Late st Contact Info) Description 12/09/2024 3:30 PM EDT Clinical Support [facility] 1 [place] [address] Jerry Monroe Jr., MD [address] [place] [address] Non-pressure chronic ulcer of skin of [...] on file documented as of this encounter Progress Notes * Kori Peña RN - 12/09/2024 3:30 PM EDT Images from the original note were not included. Attached media from the original note were not included. 12/09/24 1610 Wound 11/18/24 Groin Left Date First Assessed/Time First Assessed: 11/18/24 1508 Wound Approximate Age at First Assessment (Weeks): 4 weeks Location: Groin Wound Location Orientation: Left Wound Image Images linked Site Assessment Granulation;Sloughing Sara-Wound Assessment Scarred Wound Length (cm) 6.5 cm Wound Width (cm) 5.5 cm Wound Surface Area (cm^2) 28.08 cm^2 Wound Depth (cm) 4.5 cm Wound Volume (cm^3) 84.234 cm^3 Tunneling 1.4 cm Tunneling Clock Position of Wound 10 Margins Well-defined edges Wound Healing % 68 Drainage Description Serosanguineous Drainage Amount Large Odor None Wound Bed Granulation (%) 80 % Wound Bed Slough (%) 20 % Non-staged Wound Description Full thickness * Kori Peña RN - 12/09/2024 3:30 PM EDT Images from the original note were not included. Attached media from the original note were not included. 12/09/24 1614 Wound 11/18/24 Leg upper Left;Medial Date First Assessed/Time First Assessed: 11/18/24 1505 Wound Approximate Age at First Assessment (Weeks): 4 weeks Location: Leg upper Wound Location Orientation: Left;Medial Wound Image Images linked Site Assessment Granulation Sara-Wound Assessment Scarred Wound Length (cm) 3.3 cm Wound Width (cm) 0.7 cm Wound Surface Area (cm^2) 1.81 cm^2 Wound Depth (cm) 2.2 cm Wound Volume (cm^3) 2.661 cm^3 Margins Well-defined edges Wound Healing % 92 Drainage Description Serosanguineous Drainage Amount Large Odor None Wound Bed Granulation (%) 100 % Non-staged Wound Description Full thickness * Kori Peña RN - 12/09/2024 3:30 PM EDT -Removed 1 piece of black foam from groin wound and 2 pieces of black foam and 1 piece of white foam from leg wound - Applied 1 piece of black foam to groin wound and 2 pieces of black foam and 1 piece of white foamto leg wound Orders followed as below Remove dressings. Clean wound with 0.9 % [...] connector to connect wounds both wounds Patient tolerated procedures well POC: Dressings to be changed 3 times a week. Will need nurse visits 2 times a week for NPWT dressing changes. Return in one week for follow up appointment. Use above orders for all non-provider visits. Education: Patient educated on signs/symptoms of infection and to go to ER if wound vac stops working for more than 2 consecutive hours documented in this encounter Plan of Treatment Upcoming Encounters Date Type Department Care Team (Late st Contact Info) Description 12/11/2024 2:40 PM EDT Office Visit [facility] [place] 1 [place] [address] Jerry Monroe Jr., MD [address] [place] [address] 12/13/2024 3:30 PM EDT Clinical Support [facility] [address] [address] 12/16/2024 3:30 PM EDT Clinical Support [address] [address] 12/18/2024 3:00 PM EDT Office Visit [address] [address] Jerry Monroe Jr., MD [address] [place] [address] 12/20/2024 3:30 PM EDT Clinical Support [facility] [address] [address] documented as of this encounter Procedures Procedure Name Priority Date/Time Associated Diagnosis Comments WOUND TREATMENT Routine 12/09/2024 5:03 PM EDT Non-pressure chronic ulcer of skin [...]
--- OUTSIDE RECORDS SUMMARY | 2024-12-11 08:03 | XMS_ITS | Encounter Summary ---
Author Organization Healthcare Address [address] [place] [address] Care Team Providers Care Poultry Culler Name Role Phone Asad Victor MD Primary Care Provider + [phone] Encounter Details Date Type Department Care Team (Late st Contact Info) Description 12/04/2024 Telephone [facility] [address] [facility] 5th Floor [address] [place] [address] Nathaly Nowak MD [address] [facility] [address] [place] [address] Social History Tobacco Use Types [...] first t dino in the morning (EYE-KITCHEN STEWARDESS) to steady your nerves or to get rid of a hangover? 0 10/18/2021 CAGE Questionnaire Score 0 022 Utilities Answer Date Recorded In the past 12 months has th e [employer], gas, oil, or water company threatened to [...] EDT Returned phone call to Judy at [facility]. Patient previously stated that he is receiving wound care at [facility]. We unfortunately do not have these records at this time, we have sent two requests and are awaiting them at this time. Patient has not yet been seen in clinic for his post-operative appointment. * Telephone Encounter - Clare Fleming - 12/04/2024 11:35 AM EDT Clinical Concern/Question Reason for Call: judy at [facility] calling for wound measurements for wound vac. Please call Best contact number: Other: [phone] Optimal time of day to reach caller: [...] PM EDT Office Visit [facility] [address] [place] [address] Oscar Appiah MD [address] [facility] [address] [place] [address] 12/19/2024 7:30 AM EDT Appointment [facility] V[facility] Lab [address] 5th Floor [address] [place] [address] 12/19/2024 8:00 AM EDT Appointment [facility] [address] [facility] 5th Floor [address] [place] [address] 12/19/2024 9:00 AM EDT Office Visit [facility] [address] [facility] 5th Floor [address] [place] [address] Nathaly Nowak MD [address] [facility] [address] [place] [address] documented as of this encounter [...] as of this encounter Care Teams Poultry Culler Relationship Specialty Start Date End Date Asad Victor MD [address] [place] [address] PCP - General 10/07/22 documented as of this encounter
--- OUTSIDE RECORDS SUMMARY | 2024-12-11 08:11 | XMS_ITS | Encounter Summary ---
Author Organization [employer] ([place], [place], [place], [place]) Address [address] [place] [address] Care Team Providers Care Cathode Ray Tube Salvage Processor Name Role Phone Unavailable Primary Care [...] Description 12/11/2024 2:40 PM EDT Office Visit [facility] [place] 1 [place] [address] Jerry Monroe Jr., MD [address] [place] [address] 12/13/2024 3:30 PM EDT Clinical Support [facility] 1 [place] [address] 12/16/2024 3:30 PM EDT Clinical Support [facility] [address] [place] [address] 12/18/2024 3:00 PM EDT Office Visit [facility] [place] 1 [place] [address] Jerry Monroe Jr., MD [address] [place] [address] 12/20/2024 3:30 PM EDT Clinical Support [facility] 1 [place] [address] documented as of this encounter Visit Diagnoses Not on filedocumented in this encounter
--- OUTSIDE RECORDS SUMMARY | 2024-12-11 08:16 | XMS_ITS | Encounter Summary ---
Author Organization [employer] ([place], [place], [place], [place]) Address [address] [place] [address] Care Team Providers Care Duplex Trimmer Name Role Phone Unavailable Primary Care Provider [...] Description 12/11/2024 2:40 PM EDT Office Visit [facility] [place] 1 [place] [address] Jerry Monroe Jr., MD [address] [place] [address] 12/13/2024 3:30 PM EDT Clinical Support [facility] 1 [place] [address] 12/16/2024 3:30 PM EDT Clinical Support [facility] [address] [place] [address] 12/18/2024 3:00 PM EDT Office Visit [facility] [place] 1 [place] [address] Jerry Monroe Jr., MD [address] [place] [address] 12/20/2024 3:30 PM EDT Clinical Support [facility] 1 [place] [address] documented as of this encounter Visit Diagnoses Not on filedocumented in this encounter
[2024-12-11] MEDS: SODIUM CHLORIDE 0.9% IV (08:20)
[2024-12-11] MEDS: MICAFUNGIN SODIUM IV (08:20)
--- OUTSIDE RECORDS SUMMARY | 2024-12-11 08:23 | XMS_ITS | Encounter Summary ---
Author Organization Healthcare Address [address] [id number] Care Team Providers Care Print Developer Name Role Phone Asad Victor MD Primary Care Provider + [phone] Reason for Visit * Reason Onset Date Comments [facility] Clinical Concern/Question 11/15/2024 Encounter Details Date Type Department Care Team (Late st Contact Info) Description 11/15/2024 [facility]phone [facility] [address] [facility] 5th Floor [address] [place] [address] Nahtaly Nowak MD [address] [facility] [address] [place] [address] [facility] Clinical Concern/Question Social History [...] any time in the past 12 m [facility], were you homeless or living [...] first t dino in the morning (EYE-AIRCRAFT MECHANIC STRUCTURES) to steady your nerves or to get [...] has been receiving his wound care through [facility] in [place]. Records requested from there. Post-op appointment request [...] with info. Thank you Best contact number: [phone] (mobile) Optimal time of day to reach [...] Description 12/13/2024 2:00 PM EDT Office Visit [facility] [address] [place] [address] Oscar Appiah MD [address] [facility] [address] [place] [address] 12/19/2024 7:30 AM EDT Appointment [facility]ascular Lab [address] [facility] 5th Floor [address] [place] [address] 12/19/2024 8:00 AM EDT Appointment [facility] [address] [facility] 5th Floor [address] [place] [address] 12/19/2024 9:00 AM EDT Office Visit [facility] [address] [place] [address] Nathaly Nowak MD [address] [facility] [address] [place] [address] documented as of this encounter Goals Goal [...] documented as of this encounter Care Teams Print Developer Relationship Specialty Start Date End Date Asad Victor MD [address] [place] [address] PCP - General 10/07/22 documented as of this encounter
--- OUTSIDE RECORDS SUMMARY | 2024-12-11 08:24 | XMS_ITS | Encounter Summary ---
Author Organization [employer] ([place], [place], [place], [place]) Address [address] [place] [address] Care Team Providers Care Account Director Name Role Phone Unavailable Primary Care Provider Unavailabl e Encounter Details Date Type Department Care Team (Latest Contact Info) Description 12/09/2024 Travel Social History Tobacco Use Types Packs/Day [...] Description 12/11/2024 2:40 PM EDT Office Visit [facility] [place] 1 [place] [address] Jerry Monroe Jr., MD [address] [place] [address] 12/13/2024 3:30 PM EDT Clinical Support [facility] 1 [place] [address] 12/16/2024 3:30 PM EDT Clinical Support [facility] [address] [place] [address] 12/18/2024 3:00 PM EDT Office Visit [facility] [place] 1 [place] [address] Jerry Monroe Jr., MD [address] [place] [address] 12/20/2024 3:30 PM EDT Clinical Support [facility] 1 [place] [address] documented as of this encounter Visit Diagnoses Not on filedocumented in this encounter
[2024-12-11 08:25] VITALS: BP 134/69; PULSE 72; RESP 18; TEMP 36.7; O2SAT 99
--- OUTSIDE RECORDS SUMMARY | 2024-12-11 08:26 | XMS_ITS | Clinical Summary ---
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 w/Reflex to HIV 1/2 Differentiation (09/20/2024 10:33 PM EDT) Pathologist [facility] HIV 1 & 2 Antibody/Antigen Screen Non Reactive Non Reactive 09/20/2024 11:39 PM EDT [facility] Comment:Screening for HIV 1 & 2 antibodies, and P24 antigen is NONREACTIVE. No confirmatory testing is required. Blood Venous blood specimen / Unknown Venipuncture / Unknown 09/20/2024 10:33 PM EDT 09/20/2024 10:54 PM EDT Giorgi Perkins MD LAB BLOOD ORDERABLES Final Result [facility] [address] [place] [address] * Hepatitis C Antibody - ED (09/20/2024 10:33 PM EDT) Pathologist [facility] Hepatitis C Antibody Negative Negative 09/20/2024 11:39 PM EDT [facility] Blood Venous blood specimen / Unknown Venipuncture / Unknown 09/20/2024 10:33 PM EDT 09/20/2024 10:53 PM EDT Giorgi Perkins MD LAB BLOOD ORDERABLES Final Result [facility] [address] [place] [address] * APTT (09/20/2024 10:33 PM EDT) Pathologist [facility] aPTT 28 25 - 35 sec LAB COAGULATION METHOD 09/21/2024 12:19 AM EDT [facility] Blood Venous blood specimen / Unknown Venipuncture / Unknown 09/20/2024 10:33 PM EDT 09/20/2024 10:42 PM EDT us Giorgi Perkins MD LAB BLOOD ORDERABLES Final Result Performing Organization Address City/[facility] [place] [address] from Last 3 Months Additional Health Concerns Active Problems Noted Date Diagnosed Date Autogenerated Problem 09/23/2024 Insurance MEDICAID [facility] MEDICARE Advance Directives [...] Patient has decision-making capacity? Yes Care Teams Spray Dyer Relationship Specialty Start Date End Date Asad Victor MD [address] [place] [address] PCP - General 10/07/22
--- OUTSIDE RECORDS SUMMARY | 2024-12-11 08:27 | XMS_ITS | Encounter Summary ---
Author Organization [employer] ([place], [place], [place], [place]) Address [address] [place] [address] Care Team Providers Care Coal Getter Name Role Phone Unavailable Primary Care Provider [...] Visit [facility] [address] [place] [address] Jerry Monroe Jr., MD [address] [place] [address] 12/13/2024 3:30 PM EDT Clinical Support [facility] 1 [place] [address] 12/16/2024 3:30 PM EDT Clinical Support [facility] [address] [place] [address] 12/18/2024 3:00 PM EDT Office Visit [facility] [address] [place] [address] Jerry Monroe Jr., MD [address] [place] [address] 12/20/2024 3:30 PM EDT Clinical Support [facility] [address] [place] [address] documented as of this encounter Visit Diagnoses Not on filedocumented in this encounter
--- OUTSIDE RECORDS SUMMARY | 2024-12-11 08:31 | XMS_ITS | Encounter Summary ---
Author Organization [facility] Address [address] [place] [address] Care Team Providers Care Worker'S Compensation Claims Examiner Name Role Phone Asad Victor MD Primary Care Provider + [phone] Encounter Details Date Type Department Care Team [...] first t dino in the morning (EYE-PHYSICAL THER) to steady your nerves or to [...] Office Visit [facility] [address] [facility] [place] [address] Oscar Appiah MD [address] [facility] [address] [place] [address] 12/19/2024 7:30 AM EDT Appointment [facility] [address]th Floor [address] [place] [address] 12/19/2024 8:00 AM EDT Appointment [facility] [address] 5th Floor [address] [place] [address] 12/19/2024 9:00 AM EDT Office Visit [facility] [address] 5th Floor [address] [place] [address] Nathaly Nowak MD [address] [place] [address] documented as of this encounter Goals Goal Patient Goal Type Associated Problems Recent Progress Patient-Stated? Author Autogenera lousie Goal Care Plan Autogenerated Problem No Ekta Arnett documented as of this encounter Visit Diagnoses Not on filedocumented in this encounter Additional Health Concerns Active Problems Noted Date Diagnosed Date Autogenerated Problem 09/23/2024 Assessment Noted Time A Body Mass Index follow-up plan has been documented for the patient 09/22/2024 2:53 PM EDT documented as of this encounter Care Teams Worker'S Compensation Claims Examiner Relationship Specialty Start Date End Date Asad Victor MD [address] [place] [address] PCP - General 10/07/22 documented as of this encounter
--- OUTSIDE RECORDS SUMMARY | 2024-12-11 08:37 | XMS_ITS | Encounter Summary ---
Author Organization Healthcare Address [address] [id number] Care Team Providers Care Integrated Circuit Fabricator Name Role Phone Asad Victor MD Primary Care Provider + [phone] Encounter Details Date Type Department Care Team (Late st Contact Info) Description 10/22/2024 Telephone Vascular Surgery [address] [place] [address] Alison Beltrán, SPEEDBOAT DRIVER, DNP [address] [facility] [address] [place] [address] Social History Tobacco Use Types Packs/Day Years [...] drink first t dino in the morning (EYE-SHOVE UP) to steady your nerves or to get [...] Notes * Telephone Encounter - Alison Beltrán, SPEEDBOAT DRIVER, DNP - 10/22/2024 11:39 AM EDT Returned patient call. Patient s/p left common/superficial/profunda femoral thromboendarterectomy with bovine patch repair and left external iliac artery/EXTRUDING PRESS ADJUSTER stent with Dr Gautam on 10/17/24. [...] Description 12/13/2024 2:00 PM EDT Office Visit [facility] [address] [place] [address] Oscar Appiah MD [address] [facility] [address] [place] [address] 12/19/2024 7:30 AM EDT Appointment [facility] [address] [place] [address] 12/19/2024 8:00 AM EDT Appointment [facility] [address] [place] [address] 12/19/2024 9:00 AM EDT [facility] [address] 5th Floor [address] [place] [address] Nathaly Nowak MD [address] [facility] [address] [place] [address] documented as of this [...] documented as of this encounter Care Teams Integrated Circuit Fabricator Relationship Specialty Start Date End Date Asad Victor MD [address] [place] [address] PCP - General 10/07/22 documented as of this encounter
--- OUTSIDE RECORDS SUMMARY | 2024-12-11 08:41 | XMS_ITS | Encounter Summary ---
Author Organization [facility] Address [address] [place] [address] Care Team Providers Care Lead Care Manager Name Role Phone Asad Victor MD Primary Care Provider + [phone] Encounter Details Date Type Department Care Team [...] drink first t dino in the morning (EYE-GRADE SETTER) to steady your nerves or to [...] Office Visit [facility] [address] [place] [address] Oscar Appiah MD [address] [address] 12/19/2024 7:30 AM EDT Appointment [facility] [address] [place] [address] 12/19/2024 8:00 AM EDT Appointment [facility] [address] [facility] 5th Floor Wing [address] [place] [address] 12/19/2024 9:00 AM EDT Office Visit [facility] [address] [place] [address] Nathaly Nowak MD [address] [facility] [address] [place] [address] documented as of this encounter [...] as of this encounter Care Teams Lead Care Manager Relationship Specialty Start Date End Date Asad Victor MD [address] [place], [place] [id number] PCP - General 10/07/22 documented as of this encounter
--- OUTSIDE RECORDS SUMMARY | 2024-12-11 08:44 | XMS_ITS | Encounter Summary ---
Author Organization Healthcare Address [address] [place] [address] Care Team Providers Care Director Immunology Name Role Phone Asad Victor MD Primary Care Provider + [phone] Encounter Details Date Type Department Care Team (Late st Contact Info) Description 11/27/2024 Orders Only [address] [address] Vaishali Kraus MD [address] [place] [address] [address] [place] [address] Therapeutic drug monitoring (Primary Dx) [...] drink first t dino in the morning (EYE-WATCH DIAL STONER) to steady your nerves or to get [...] Description 12/13/2024 2:00 PM EDT Office Visit [facility] [address] [facility] [place] [address] Oscar Appiah MD [address] [facility] [address] [place] [address] 12/19/2024 7:[address] [facility] [address] 5th [address] [place] [address] 12/19/2024 8:[address] [facility] [address] 5th [address] [place] [address] 12/19/2024 9:00 AM EDT Office Visit [facility] [address] 5th [address] [place] [address] Nathaly Nowak MD [address] [place] [address] Scheduled Orders Name Type Priority [...] as of this encounter Care Teams Director Immunology Relationship Specialty Start Date End Date Asad Victor MD [address] [place] [address] PCP - General 10/07/22 documented as of this encounter
--- OUTSIDE RECORDS SUMMARY | 2024-12-11 08:45 | XMS_ITS | Encounter Summary ---
Author Organization Healthcare Address [address] [place] [address] Care Team Providers Care Wood Bucker Name Role Phone Asad Victor MD Primary Care Provider + [phone] Encounter Details Date Type Department Care Team (Late st Contact Info) Description 12/07/2024 Results Follow-Up [address] [place] [address] Vaishali Kraus MD [address] [facility] [address] [place] [address] Social History Tobacco Use Types [...] first t dino in the morning (EYE-GROUP FITNESS INSTRUCTOR) to steady your nerves or [...] Office Visit [facility] [address] [place] [address] Oscar Appiah MD [address] [facility] [address] [place] [address] 12/19/2024 7:30 AM EDT Appointment [facility] [address] 5th Floor [address] [place] [address] 12/19/2024 8:00 AM EDT Appointment [facility] [address] 5th [address] [place] [address] 12/19/2024 9:00 AM EDT Office Visit [facility] [address] 5th [address] [place] [address] Nathaly Nowak MD [address] [place] [address] documented as of this encounter [...] documented as of this encounter Care Teams Wood Bucker Relationship Specialty Start Date End Date Asad Victor MD [address] [place] [address] PCP - General 10/07/22 documented as of this encounter
--- OUTSIDE RECORDS SUMMARY | 2024-12-11 08:47 | XMS_ITS | Encounter Summary ---
Author Organization [employer] ([place], [place], [place], [place]) Address [address] [place] [address] Care Team Providers Care Coal Pipeline Operator Name Role Phone Unavailable Primary Care [...] Description 12/11/2024 2:40 PM EDT Office Visit [facility] [place] 1 [place] [address] Jerry Monroe Jr., MD [address] [place] [address] 12/13/2024 3:30 PM EDT Clinical Support [facility] 1 [place] [address] 12/16/2024 3:30 PM EDT Clinical Support [facility] [address] [place] [address] 12/18/2024 3:00 PM EDT Office Visit [facility] [place] [address] [place] [address] Jerry Monroe Jr., MD [address] [place] [address] 12/20/2024 3:30 PM EDT Clinical Support [facility] [address] [place] [address] documented as of this encounter Visit Diagnoses Not on filedocumented in this encounter
--- OUTSIDE RECORDS SUMMARY | 2024-12-11 08:47 | XMS_ITS | Encounter Summary ---
Author Organization Healthcare Address [address] [place] [address] Care Team Providers Care Final Inspector Truck Trailer Name Role Phone Asad Victor MD Primary Care Provider + [phone] Encounter Details Date Type Department Care Team (Late st Contact Info) Description 11/05/2024 Orders Only External Location [address] [place] [address] Provider, External Social History Tobacco Use Types [...] drink first t dino in the morning (EYE-ANIMAL RIDE MANAGER) to steady your nerves or to get rid of a hangover? 0 10/18/2021 CAGE Questionnaire Score 0 022 Utilities Answer Date Recorded In the past 12 months has th e [employer], gas, oil, or water company threatened to [...] EDT Office Visit [facility] [address] [facility] [place] [address] Oscar Appiah MD [address] [facility] [address] [place] [address] 12/19/2024 7:30 AM EDT Appointment [facility] [address] 5th Floor [address] [place] [address] 12/19/2024 8:00 AM EDT Appointment [facility] [address] 5th Floor [address] [place] [address] 12/19/2024 9:00 AM EDT Office Visit [facility] [address] 5th Floor [address] [place] [address] Nathaly Nowak MD [address] [place] [address] documented as of this encounter Goals Goal [...] documented as of this encounter Care Teams Final Inspector Truck Trailer Relationship Specialty Start Date End Date Asad Victor MD [address] [place] [address] PCP - General 10/07/22 documented as of this encounter
--- OUTSIDE RECORDS SUMMARY | 2024-12-11 08:47 | XMS_ITS | Encounter Summary ---
Author Organization [facility] Address [address] [place] [address] Care Team Providers Care Shooter Helper Name Role Phone Asad Victor MD Primary Care Provider + [phone] Encounter Details Date Type Department Care Team [...] drink first t dino in the morning (EYE-ARRANGER ASSEMBLER) to steady your nerves or to [...] EDT Office Visit [facility] [address] [facility] [place] [address] Oscar Appiah MD [address] [facility] [address] [place] [address] 12/19/2024 7:30 AM EDT Appointment [facility] [address] [facility] 5th Floor [address] [place] [address] 12/19/2024 8:00 AM EDT Appointment [facility] [address] [facility] 5th Floor [address] [place] [address] 12/19/2024 9:00 AM EDT Office Visit [facility] [address] [facility] 5th Floor [address] [place] [address] Natahly Nowak MD [address] [place] [address] documented as of this encounter [...] documented as of this encounter Care Teams Shooter Helper Relationship Specialty Start Date End Date Asad Victor MD [address] [place] [address] BISI [place] [address] PCP - General 10/07/22 documented as of this encounter
--- OUTSIDE RECORDS SUMMARY | 2024-12-11 08:47 | XMS_ITS | Referral Summary ---
Author Organization [employer] ([place], [place], [place], [place]) Address [address] [place] [address] Care Team Providers Care Assembler For Puller Over Hand Name Role Phone Unavailable Primary Care Provider Unavailabl e Encounters Date Type Department Care Team Description 12/09/2024 Travel 12/09/2024 3:30 PM EDT Clinical Support 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 1 [place] [address] Jerry Monroe Jr., MD 11/27/2024 Travel 11/27/2024 2:20 PM EDT Office Visit 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 1 [place] [address] Jerry Monroe Jr., MD Non-pressure chronic ulcer [...] 12/11/2024 2:40 PM EDT Office Visit [facility] 1 [place] [address] Jerry Monroe Jr., MD [address] [place] [address] 12/13/2024 3:30 PM EDT Clinical Support [facility] 1 [place] [address] 12/16/2024 3:30 PM EDT Clinical Support [facility] [address] [place] [address] 12/18/2024 3:00 PM EDT Office Visit [facility] [place] 1 [place] [address] Jerry Monroe Jr., MD [address] [place] [address] 12/20/2024 3:30 PM EDT Clinical Support 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 us Jerry Monroe Jr., MD NURSING PATHWAYS ORDERABL ES Final Result * OR DEBRIDEMENT MUSCLE &/FASCIA 1ST 20 SQ CM/<, OR DEBRIDEMENT MUSCLE &/FASCIA EA ADDL 20SQ CM [...] OR DEBRIDEMENT MUSCLE &/FASCIA EA ADDL 20SQ CM [...] Final Result from Last 3 Months Insurance [facility] ADV DUAL COMPLETE MEDICAID OF [place]
--- OUTSIDE RECORDS SUMMARY | 2024-12-11 08:52 | XMS_ITS | Encounter Summary ---
Author Organization Healthcare Address [address] [place] [address] Care Team Providers Care Acid Mixer Name Role Phone Asad Victor MD Primary Care Provider + [phone] Encounter Details Date Type Department Care Team (Late st Contact Info) Description 11/15/2024 Clinical Support [address] [place] [address] Charly Orlando, PharmD [address] [place] [address] [address] [place] [address] Social History Tobacco Use Types [...] drink first t dino in the morning (EYE-CASH APPLICATIONS COORDINATOR) to steady your nerves or to get rid of a hangover? 0 10/18/2021 CAGE Questionnaire Score 0 022 Utilities Answer Date Recorded In the past 12 months has th e [employer], gas, oil, or water company threatened [...] EDT Office Visit [facility] [address] [facility] [place] [address] Oscar Appiah MD [address] [facility] [address] [place] [address] 12/19/2024 7:30 AM EDT Appointment [facility] [address] [place] [address] 12/19/2024 8:00 AM EDT Appointment [facility] [address] [facility] 5th Floor [address] [place] [address] 12/19/2024 9:00 AM EDT Office Visit [facility] [address] [facility] 5th Floor [address] [place] [address] Nathaly Nowak MD [address] [place] [address] documented as of this encounter [...] documented as of this encounter Care Teams Acid Mixer Relationship Specialty Start Date End Date Asad Victor MD [address] [place] [address] PCP - General 10/07/22 documented as of this encounter
--- OUTSIDE RECORDS SUMMARY | 2024-12-11 08:52 | XMS_ITS | Encounter Summary ---
Author Organization [employer] ([place], [place], [place], [place]) Address [address] [place] [address] Care Team Providers Care Fuel System Maintenance Supervisor Name Role Phone Unavailable Primary Care [...] 12/11/2024 2:40 PM EDT Office Visit [facility] [address] [place] [address] Jerry Monroe Jr., MD [address] [place] [address] 12/13/2024 3:30 PM EDT Clinical Support [facility] 1 [place] [address] 12/16/2024 3:30 PM EDT Clinical Support [facility] [address] [place] [phone] 12/18/2024 3:00 PM EDT Office Visit [facility] 1 [place] [address] Jerry Monroe Jr., MD [address] [place] [address] 12/20/2024 3:30 PM EDT Clinical Support [facility] 1 [place] [address] documented as of this encounter Visit Diagnoses Not on filedocumented in this encounter
[2024-12-11 09:26] VITALS: BP 136/65; PULSE 75; RESP 18; O2SAT 100
[2024-12-11] MEDS: ERTAPENEM SODIUM 1 GM in 0.9 % SODIUM CHLORIDE 50 ML IV (09:26)
[2024-12-11 09:30] VITALS: BP 126/71; PULSE 71
[2024-12-11 10:05] VITALS: BP 131/70; PULSE 74
== END 2024-12-11 10:10 | disposition home or self-care (01) ==
LOC: INF 08:00
PROVIDERS: PCP Family Medicine
DX: T81.49XA Infection following a procedure, other surgical site, initial encounter (principal); L08.9 Local infection of the skin and subcutaneous tissue, unspecified
CPT/HCPCS: 96365; 96367; J1335; J2248

== ENCOUNTER 2024-12-12 08:04 | Outpatient (CLI) | payer MEDICARE, OTHER, SELFPAY ==
[2024-12-12] MEDS: SODIUM CHLORIDE 0.9% 10ML FLUSH SYRINGE 10 ML IV (08:20)
[2024-12-12 08:21] VITALS: BP 160/69; PULSE 90; RESP 16; TEMP 36.6; O2SAT 97
[2024-12-12] MEDS: SODIUM CHLORIDE 0.9% IV (08:21)
[2024-12-12] MEDS: MICAFUNGIN SODIUM IV (08:21)
[2024-12-12] MEDS: ERTAPENEM SODIUM 1 GM in 0.9 % SODIUM CHLORIDE 50 ML IV (09:25)
[2024-12-12 09:55] VITALS: BP 140/74; PULSE 89; RESP 16; TEMP 36.6; O2SAT 97
== END 2024-12-12 23:59 | disposition home or self-care (01) ==
LOC: INF 08:08
PROVIDERS: PCP Family Medicine
DX: T81.49XA Infection following a procedure, other surgical site, initial encounter (principal); L08.9 Local infection of the skin and subcutaneous tissue, unspecified
CPT/HCPCS: 96365; 96367; J1335; J2248

== ENCOUNTER 2024-12-13 08:07 | Outpatient (CLI) | payer MEDICARE, OTHER, SELFPAY ==
--- OUTSIDE RECORDS SUMMARY | 2024-10-16 14:45 | XMS_ITS | Encounter Summary ---
Author Organization Healthcare Address [address] [place] [address] Care Team Providers Care Winter Sports Manager Name Role Phone Asad Victor MD Primary Care Provider + [phone] Encounter Details Date Type Department Care Team (Latest Contact Info) Description 10/16/2024 2:45 PM EDT - 10/16/2024 11:59 PM EDT Hospital Encounter Cardiac Imaging [address] [place] [address] Discharge Disposition: Home or Self Care Social [...] drink first t dino in the morning (EYE-SCREW MACHINE REPAIRER) to steady your nerves or to get [...] Description 12/13/2024 2:00 PM EDT Office Visit [facility] [address] [place] [address] Oscar Appiah MD [facility] 100 [place] [address] 12/19/2024 7:30 AM EDT Appointment [facility] Lab [address] [place] [address] 12/19/2024 8:00 AM EDT Appointment [facility] [address] [place] [address] 12/19/2024 9:00 AM EDT Office Visit [facility] [address] [place] [address] Nathaly Nowak MD [address] [facility] [address] [place] [address] documented as of this encounter Goals Goal [...] Modality Other Narrative 10/17/2024 9:50 AM EDT [facility]: Pre-operative CIED Report Assessment and Sara-Procedural Reommendations: Name: Mono Bobby Date: 10/17/2024 : 1960 Age: 64 y.o. Patient has a Charhouse Worker: Berger VEHICLE SERVICE AGENT-PM Remaining battery longevity adequate. Lead integrity test [...] recommendations. Supporting reports can be found in [email or web address] media file. 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
--- OUTSIDE RECORDS SUMMARY | 2024-10-17 06:21 | XMS_ITS | Encounter Summary ---
Author Organization [facility] Address [address] [id number] Care Team Providers Care Food Broker Name Role Phone Asad Victor MD Primary Care Provider [phone] Reason for Referral * Imaging (Routine) - Authorized Specialty Diagnoses / Procedures Referred By Susan t Referred To Contact Cardiology Diagnoses Critical limb ischemia of left lower extremity Pseudoaneurysm of left femoral artery (CMS/HCC) Procedures VAS US Arterial Duplex Lower Extremity Unilateral Left Terrell Gautam MD [address] [address] Phone: tel: fax: Referral ID Status Reason Start Date Expiration Date Visits Requested Visits Authorized [id number] Authorized Perform Procedure 10/19/2024 04/20/2026 1 1 * Imaging (Routine) - Authorized Specialty Diagnoses / Procedures Referred By Contac t Referred To Contact Cardiology Diagnoses Critical limb ischemia of left lower extremity Pseudoaneurysm of left femoral artery (CMS/HCC) Procedures VAS Ankle Brachial Index - Segmental Terrell Gautam MD [id number] [place] [address] Phone: tel: fax: Referral ID Status Reason Start Date Expiration Date Visits Requested Visits Authorized [id number] Authorized Perform Procedure 10/19/2024 04/20/2026 1 1 * Consultation (Routine) - Authorized Specialty Diagnoses / Procedures Referred By Contact Referred To Contact Vascular Surgery / [facility] Diagnoses Critical limb ischemia of left lower extremity Pseudoaneurysm of left femoral artery (CMS/HCC) Terrell Gautam MD [address] [place] [address] Phone: tel:[phone] fax:[phone] [facility] [address] [place] [address] 5th Floor [address], [address] [place] [address] Phone: tel: fax: Referral ID Status Reason Start Date Expiration Date Visits Requested Visits Authorized [id number] Authorized Specialty Services Required 10/19/2024 04/20/2026 [address] Gautam, with SIL, arterial duplex Reason for Visit * Auth/Cert (Routine) Specialty Diagnoses / Procedures Referred By Susan t Referred To Contact Diagnoses Critical limb ischemia of left lower extremity Critical limb ischemia of left lower extremity [I70.222] Procedures OH VEIN BYPASS GRAFT,FEM-POP CREATION, BYPASS, ARTERIAL, FEMORAL TO POPLITEAL Terrell Gautam MD [address] [place] [address] Phone: tel: fax: P[facility] A OPERATING ROOM [address] [place] [address] Phone: tel: Referral ID Status Reason Start Date Expiration Date Visits Re quested Visits Authorized [id number] 1 1 Encounter Details Date Type Department Care Team (Latest Contact Info) Description 10/17/2024 6:21 AM EDT - 10/19/2024 12:39 PM EDT Hospital Encounter P[facility] H Inpatient [address] [place] [id number] Terrell Gautam MD [address] [place] [address] Pseudoaneurysm of left femoral artery (CMS/HCC) [...] any time in the past 12 m [facility], were you homeless or living [...] first t dino in the morning (EYE-BUSINESS PLANNING ANALYST) to steady your nerves or to get rid of a hangover? 0 10/18/2021 CAGE Questionnaire Score 0 022 Utilities Answer Date Recorded In the past 12 months has th [employer], gas, oil, or water [employer] ([employer]) threatened to shut off services in your [...] provided Taken 10/17/20242107 by Jourdan Grimes II puppy walker Review/Management: medications reviewed Problem: Skin Injury Risk [...] Ongoing, Progressing Intervention: Promote Activity and Functional [place] Flowsheets (Taken 10/19/2024 1048) Self-Care Promotion: BADL personal objects within reach meal set-up provided * Yuni Ramires - Keyla Chow - 10/19/2024 11:45 AM EDT Images from the original note were not included. [id number] After Peripheral Artery Bypass Surgery: In the [...] home. Last Reviewed Date: 2023 00:00:00 ?? [id number] [employer]. All rights reserved. This information is not intended as a substitute for professional medical care. Always follow your healthcare professional's instructions. * Progress Notes - Emelina Friend - 10/19/2024 11:44 AM EDT Case Management Adult Progress Note Bev Bobby 64 y.o. male CSN: [id number] Admission: 10/17/2024 6:21 AM Primary Problem: Critical [...] if any other needs arise. Emelina Friend MASTER OCEAN YACHT, NECK PINNER Social Work Case Management * Yuni OviJOSE MANUEL Chow Keyla - 10/19/2024 11:44 AM EDT Images from the original note were not included. [id number] Peripheral Artery Disease (PAD) Peripheral artery disease [...] cause. Last Reviewed Date: 2024 00:00:00 ?? 4422-3231 [employer]. All rights reserved. This information is not intended as a substitute for professional medical care. Always follow your healthcare professional's instructions. * Yuni DiorNAVYA - Keyla Chow - 10/19/2024 11:44 AM EDT Images from the original note were not included. [address] Leg Artery Emergencies: Critical Limb Ischemia (CLI) [...] appointments. Last Reviewed Date: 2023 00:00:00 ?? 4644-2223 [employer]. All rights reserved. This information is not intended as a substitute for professional medical care. Always follow your healthcare professional's instructions. * Discharge Summary - Dandy Baltazar MD - 10/19/2024 11:31 AM EDT Hospitalization Admit Date/Time: 10/17/2024 6:21 AM Admitting Attending: Terrell Gautam Discharge Date: 10/19/24 Discharge Attending Physician: Nirmal Cueto MD PCP name and Address: Asad Victor MD (Inactive) [address] [place] [address] / [facility] [address] Referring provider name and address: Timothy Marques PA [address] [place] [address] Chief Concern, Brief History of Present Illness, and Hospital Course Bev Bobby is an 64 y.o. 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 He [...] provided Taken 10/17/20242107 by Jourdan Grimes II, puppy walker Review/Management: medications reviewed Problem: Skin Injury Risk [...] Ongoing, Progressing Intervention: Promote Activity and Functional [place] Flowsheets (Taken 10/19/2024 1048) Self-Care Promotion: BADL [...] evaluation. PARTICIPANTS IN CARE Visitors Present No Roll Builder (if applicable) PRESENTATION Oxygen Oxygen Therapy: None [...] Level of Mobility Ambulatory- household only Mobility [place] Independent gait with device (rollator) History of [...] numbness in rodney) BED MOBILITY Level of [place] Physical/Non- physical Assist Adaptive Equipment Utilized Rolling/ Turning Scooting/ Bridging Modified independence (anteriorly to EOB) Bed rails Supine to Sit Modified [place] (to the right) (HOB flat) Bed rails Sit to Supine Interventions HOB flat to simulate home environment TRANSFERS Level of [place] Physical/Non- physical Assist Adaptive Equipment Utilized Sit [...] stable surfaces during transitions. AMBULATION Level of [place] Distance Adaptive Equipment Utilized Ambulation Standby assist, [...] Posture: Forward head, Rounded shoulders Level of [place] Balance Support Interventions Static Sit Independent Right [...] 3-5 steps with a railing?: A little [facility] 6-Clicks Mobility Assessment Total : 22 [...] evaluation/session. Participants in Care Family/Caregiver Present: No Roll Builder: Not Applicable Presentation Oxygen Therapy: None (Room [...] Level of Mobility: Ambulatory- household only Mobility [place]: Independent gait with device (rollator) History of [...] Mobility Bed Mobility Exam: Scooting/Bridging Level of [place]: Modified independence (anteriorly to EOB) Assistive Device: Bed rails Bed Mobility Exam: Supine to Sit Level of [place]: Modified [place] (to the right) Physical/Nonphysical Assist: (HOB flat) Assistive Device: Bed rails Transfers Transfer Exam: Sit to stand Level of [place]: Stand-by assist Physical/Nonphysical Assist: Supervision, Verbal Cues, Minimal cues Assistive Device: Walker, rolling Transfer Exam: Stand to Sit Level of [place]: Stand-by assist Physical/Nonphysical Assist: Supervision, Verbal Cues, [...] regarding toileting at this time. Standardized Assessments [facility] 6-Click Daily Activities Help from Other: Don/Doff Regular Lower Body Clothings: None Help From Other: Bathing: Little Help From Other: Toileting: None Help From Other: Don/Doff Upper Body Clothings: None Help From Other: Grooming: None Help From Other: Eating Meals: None [facility] 6 Click - Daily Activities Score: 23/24 [facility] Scoring Interpretation: Scores greater than 20.5 [...] Note Bev Bobby 64 y.o. male CSN: [id number] Admission: 10/17/2024 6:21 AM Primary Problem: Critical limb ischemia of left lower extremity Area Relief Pilot reviewed chart and spoke with patient to complete this Initial Case Management Assessment. PCP: Asad Victor MD (Inactive) - Dr. Palomo Preferred pharmacy is [facility] Emergency Contact: Extended Emergency Contact Information Primary Emergency Contact: Patti Hill Relation: Sister Roll Builder needed? No Insurance: Primary Visit Coverage Payer Plan Sponsor Code Group Number Group Name [facility] MED[facility] MEDIC[facility] REPLACEMENT [id number] Primary Visit Coverage Subscriber Subscriber ID Subscriber Name Subscriber N Subscriber Address [id number] BEV BOBBY [id number] [place] [address] Secondary Visit Coverage Payer Plan Sponsor Code Group Number Group Name [facility] Secondary Visit Coverage Subscriber Subscriber ID Subscriber Name Subscriber N Subscriber Address [id number] BEV BOBBY [id number] [place] [address] Patient information: Primary Caregiver: Self Daily Living Activities: Functional Status: Independent Living Arrangements: Alone Type of Residence: Private residence, Single Level [address] [place] [address] Current DME: Equipment Currently Used at Home: walker, rollator Income Information: Income Source: Retired Income/Expense Information: Income meets expenses Current Resources Utilized: Food [place] Housing Circumstances-Z Codes: Housing Circumstances (select all [...] Dialysis Services: None. Living Will/Advance Directive/Power of Supervisor Sample Preparation /Guardian: Denied. Additional Comments: Patient is not medically ready for discharge. SW will continue to follow. Mariia Macedo NECK PINNER * Care Plan - Emilia Alonso RN [...] Agree with above assessment and evaluation from resident/MORTGAGE PROCESSING CLERK. * Op Note - Terrell Gautam MD - 10/17/2024 8:52 AM EDT Operative Note Date: 10/17/24 Location: [facility] Name: Bev Bobby, : 1960, Diagnoses: Pre-op Diagnosis Critical limb ischemia of left lower extremity Common femoral artery pseudoaneurysm Post-op Diagnosis Critical limb ischemia of left lower extremity Common femoral artery pseudoaneurysm Procedure(s): Left common/superficial/profunda femoral thromboendarterectomy with bovine patch repair Left external iliac artery/FIELD GAUGER stent Attending Surgeon(s): * Terrell Gautam - Primary Senior Clinical Consultant(s): * Luna Beckett MD - Resident - [...] Necessity Reasons Recent surgery contiguous with urinary tract/AUTOMOTIVE GLASS MECHANIC/colorectal 10/17/24 190 Output (mL) 50 mL 10/18/24 08 Implants Type Name Action Serial No. VASCUGUARD 8 X 8 - [id number] Implanted STENT ENDOPROSTHESIS VIABAHN 9FR [id number] - [id number] Implanted [id number] Specimen: Specimens ID Source Frozen? 1 Other [...] and distal control. We then proceeded with vxgjq-xsz-mpxy exposure of the popliteal artery. A medial [...] balloon dilated thestent with a 9 mm [place]. We closed the arteriotomy with a single [...] 10/17/2024 8:52 AM EDT Date: 10/17/24 Location: [place] Name: Bev Perez Kanu, : 1960, Diagnoses: Pre-op Diagnosis Critical limb ischemia of left lower extremity Common femoral artery pseudoaneurysm Post-op Diagnosis Critical limb ischemia of left lower extremity Common femoral artery pseudoaneurysm Procedure(s): Left common/superficial/profunda femoral thromboendarterectomy with bovine patch repair Left external iliac artery/FIELD GAUGER stent Attending Surgeon(s): * Terrell Gautam - Primary Senior Clinical Consultant(s): * Luna Beckett MD - Resident - Assisting * Dandy Baltazar MD - Fellow Anesthesia: General ASA: III Blood Administration: Blood Product Administration History None Estimated Blood Loss: 300 mL Drains: Urethral Catheter Temperature probe 16 Fr. (Active) Implants Type Name Action Serial No. VASCUGUARD 8 X 8 - [id number] Implanted STENT ENDOPROSTHESIS VIABAHN 9FR [id number] - [id number] Implanted [id number] Specimen: Specimens ID Source Frozen? 1 Other [...] issues. 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 He previouslyunderwent thrombin injection. He reports pain in his calves. He presents today for scheduled left lower extremity femoral to lihib-vmu-hgzk popliteal bypass. Planned likely use PTFE. He [...] 16. Results Review {Vanishing Link Review Results :[id number] I have reviewed the latest lab and imaging results. Assessment & Plan Critical limb ischemia of left lower extremity Proceed with scheduled surgery left lower extremity femoral to pzkax-bij-etox popliteal artery bypass graft. Extensive discussion had [...] 12/13/2024 2:00 PM EDT Office Visit [facility] [address] [place] [address] Oscar Appiah MD [address] [facility] [address] [place] [address] 12/19/2024 7:30 AM EDT Appointment [facility] [address] [facility] 5th Floor [address] [place] [address] 12/19/2024 8:00 AM EDT Appointment [facility] [address] Floor [address] [place] [address] 12/19/2024 9:00 AM EDT Office Visit [facility] [address] [place] [address] Nathaly Nowak MD [address] [place] [address] Pending Results Name Type Priority [...] PREPARE RBC STAT 10/17/2024 8:06 AM EDT OH VEIN BYPASS GRAFT,FEM-POP 10/17/2024 7:38 AM EDT [...] Comment 10/19/2024 11:42 AM EDT HEALTHCARE LAB Dioramist ID KamranJob 10/20/19 11:42 AM EDT [facility] Device ID [id number] 10/19/2024 11:42 AM EDT [facility] Specimen Type POC Capillary 10/19/2024 11:42 AM EDT [facility] Blood Capillary blood specimen / Unknown 10/19/2024 11:40 AM EDT 10/19/2024 11:42 AM EDT us Terrell Gautam MD LAB POINT OF CARE TE ST DOCKED DEVICE UNSOLICITED RESULTS Final Result Performing Organization Address City/State/[facility] Co de Phone Number HEALTHCARE LAB [address] [place] [address] * (ABNORMAL) Protime-INR (10/19/2024 8:25 AM EDT) Prothrombin Time 17.5(H) 12.0 - 14.3 sec LAB COAGULATION METHOD 10/19/2024 9:25 AM EDT [facility] INR 1.4(H) 0.9 - 1.1 LAB COAGULATION METHOD 10/19/2024 9:25 AM EDT [facility] Blood Venous blood specimen / Unknown Venipuncture / Unknown 10/19/2024 8:25 AM EDT 10/19/2024 8:43 AM EDT Narrative [facility] - 10/19/2024 9:25 AM EDT OPTIMAL INR RANGES FOR PATIENT ON ORAL ANTICOAGULANT THERAPY Prevention of venous thromboembolism INR 2.0 to 3.0 In patients with heart disease: Atrial fibrillation INR 2.0 to 3.0 Valvular heart disease INR 2.0 to 3.0 Tissue heart valves INR 2.0 to 3.0 Mechanical prosthetic valves INR 2.5 to 3.5 Prevention of recurrent CA INR 2.5 to 3.5 Nirmal Cueto MD LAB BLOOD ORDERABLES Final Result Performing Organization Address City/[facility]/ZIP Co de Phone Number [facility] [address] [place] [address] * (ABNORMAL) Phosphorus (10/19/2024 8:25 AM EDT) Phosphorus, Plasma 2.2(L) 2.5 - 4.5 mg/dL 10/19/2024 9:12 AM EDT [facility] Blood Venous blood specimen / Unknown Venipuncture / Unknown 10/19/2024 8:25 AM EDT 10/19/2024 8:43 AM EDT Nirmal Cueto MD LAB BLOOD ORDERABLES Final Result Performing Organization Address City/[facility]/ZIP Co de Phone Number [facility] [address] [place] [address] * Magnesium (10/19/2024 8:25 AM EDT) Magnesium, Plasma 2.1 1.9 - 2.4 mg/dL 10/19/2024 9:12 AM EDT [facility] Blood Venous blood specimen / Unknown Venipuncture / Unknown 10/19/2024 8:25 AM EDT 10/19/2024 8:43 AM EDT Nirmal Cueto MD LAB BLOOD ORDERABLES Final Result Performing Organization Address City/[facility]/ZIP Co de Phone Number [facility] [address] [place] [address] * (ABNORMAL) Basic metabolic panel (10/19/2024 8:25 AM EDT) Glucose, Plasma 191(H) 74 - 99 mg/dL 10/19/2024 9:12 AM EDT [facility] BUN, Plasma 18 8 - 23 mg/dL 10/19/2024 9:12 AM EDT [facility] Creatinine, Plasma 0.76 0.70 - 1.20 mg/dL 10/19/2024 9:12 AM EDT [facility] BUN/Creatinine Ratio 24 10/19/2024 9:12 AM EDT [facility] Sodium, Plasma 135(L) 136 - 145 mmol/L 10/19/2024 9:12 AM EDT [facility] Potassium, Plasma 4.1 3.6 - 4.9 mmol/L 10/19/2024 9:12 AM EDT [facility] Chloride, Plasma 104 97 - 107 mmol/L 10/19/2024 9:12 AM EDT [facility] CO2, Plasma 22 22 - 29 mmol/L 10/19/2024 9:12 AM EDT [facility] Anion Gap 9 6 - 16 mmol/L 10/19/2024 9:12 AM EDT [facility] Total Calcium, Plasma 8.4(L) 8.9 - 10.2 mg/dL 10/19/2024 9:12 AM EDT [facility] eGFRcr 99.7 mL/min/1.7 3m*2 10/19/2024 9:12 AM EDT [facility] Comment:Reported eGFRcr in m L/min/1.73m2 is based the CKD-EPI 2020 equation that does not use a race coefficient. Blood Venous blood specimen / Unknown Venipuncture / Unknown 10/19/2024 8:25 AM EDT 10/19/2024 8:43 AM EDT us Nirmal uCeto MD LAB BLOOD ORDERABLES Final Result [facility] [address] [place] [address] * (ABNORMAL) CBC W/O Differential (10/19/2024 8:25 AM EDT) WBC Count 14.10(H) 3.70 - 10.30 10*3/uL LAB HEMATOLOGY METHOD 10/19/2024 8:52 AM EDT [facility] RBC Count 2.61(L) 4.60 - 6.10 10*6/uL LAB HEMATOLOGY METHOD 10/19/2024 8:52 AM EDT [facility] HGB 8.0(L) 13.7 - 17.5 g/dL LAB HEMATOLOGY METHOD 10/19/2024 8:52 AM EDT [facility] HCT 24.3(L) 40.0 - 51.0 % LAB HEMATOLOGY METHOD 10/19/2024 8:52 AM EDT [facility] Platelet Count 318 155 - 369 10*3/uL LAB HEMATOLOGY METHOD 10/19/2024 8:52 AM EDT [facility] MCV 93 79 - 98 fL LAB HEMATOLOGY METHOD 10/19/2024 8:52 AM EDT [facility] MCH 30.7 26.0 - 32.0 pg LAB HEMATOLOGY METHOD 10/19/2024 8:52 AM EDT [facility] MCHC 32.9 30.7 - 35.5 g/dL LAB HEMATOLOGY METHOD 10/19/2024 8:52 AM EDT [facility] RDW 13.4 11.5 - 14.5 % LAB HEMATOLOGY METHOD 10/19/2024 8:52 AM EDT [facility] MPV 9.6 8.8 - 12.5 fL LAB HEMATOLOGY METHOD 10/19/2024 8:52 AM EDT [facility] nRBC 0.0 <=0.0 per 100 WBCs LAB HEMATOLOGY METHOD 10/19/2024 8:52 AM EDT [facility] Blood Venous blood specimen / Unknown Venipuncture / Unknown 10/19/2024 8:25 AM EDT 10/19/2024 8:44 AM EDT us Nirmal Cueto MD LAB BLOOD ORDERABLES Final Result [facility] [address] [place] [address] * (ABNORMAL) POCT glucose meter (10/19/2024 7:35 AM EDT) Pathologist [facility] POCT Glucose 187(H) 74 - 99 mg/dL [...] Comment 10/19/2024 7:37 AM EDT HEALTHCARE LAB Dioramist ID Job Andrew 10/20/19 7:37 AM EDT HEALTHCARE LAB Device ID [id number] 10/19/2024 7:37 AM EDT HEALTHCARE LAB Specimen Type POC Capillary 10/19/2024 7:37 AM EDT HEALTHCARE LAB Blood Capillary blood specimen / Unknown 10/19/2024 7:35 AM EDT 10/19/2024 7:37 AM EDT us Terrell Gautam MD LAB POINT OF CARE TE ST DOCKED DEVICE UNSOLICITED RESULTS Final Result Performing Organization Address City/State/[facility] Co de Phone Number [facility] [address] [place] [address] * (ABNORMAL) POCT glucose meter (10/18/2024 7:22 PM EDT) [facility] POCT Glucose 178(H) 74 - 99 [...] 10/18/2024 7:24 PM EDT [facility] Dioramist ID Mahesh Aldana 10/18/2024 7:24 PM EDT [facility] Device ID [id number] 10/18/2024 7:24 PM EDT HEALTHCARE LAB Specimen Type POC Capillary 10/18/2024 7:24 PM EDT [facility] Blood Capillary blood specimen / Unknown 10/18/2024 7:22 PM EDT 10/18/2024 7:24 PM EDT Terrell Gautam MD LAB POINT OF CARE TE ST DOCKED DEVICE UNSOLICITED RESULTS Final Result Performing Organization Address City/[facility]/ZIP Co de Phone Number [facility]ALTH[facility]ARE LAB [address] [place] [address] * (ABNORMAL) POCT glucose meter (10/18/2024 6:07 [...] Comment 10/18/2024 6:09 PM EDT HEALTHCARE LAB Dioramist ID David Parks 10/18/2024 6:09 PM EDT [facility] Device ID [id number] 10/18/2024 6:09 PM EDT [facility] Specimen Type POC Capillary 10/18/2024 6:09 PM EDT [facility] Blood Capillary blood specimen / Unknown 10/18/2024 6:07 PM EDT 10/18/2024 6:09 PM EDT us Terrell Gautam MD LAB POINT OF CARE TE ST DOCKED DEVICE UNSOLICITED RESULTS Final Result [facility] [address] [place] [address] * (ABNORMAL) POCT glucose meter (10/18/2024 11:56 [...] Comment 10/21/2024 7:42 AM EDT HEALTHCARE LAB Dioramist ID Venessa Marcano 10/21/2024 7:42 AM EDT HEALTHCARE LAB Device ID [id number] 10/21/2024 7:42 AM EDT HEALTHCARE LAB Specimen Type POC Capillary 10/21/2024 7:42 AM EDT HEALTHCARE LAB Blood Capillary blood specimen / Unknown 10/18/2024 11:56 AM EDT 10/21/2024 7:42 AM EDT us Terrell Gautam MD LAB POINT OF CARE TE ST DOCKED DEVICE UNSOLICITED RESULTS Final Result Performing Organization Address City/State/[facility] de Phone Number HEALTHCARE LAB [address] [place] [address] * (ABNORMAL) POCT glucose meter (10/18/2024 9:24 [...] Comment 10/21/2024 7:42 AM EDT HEALTHCARE LAB Dioramist ID Emilia Alonso 7:42 AM EDT HEALTHCARE LAB Device ID [id number] 10/21/2024 7:42 AM EDT HEALTHCARE LAB Specimen Type POC Venous 10/21/2024 7:42 AM EDT HEALTHCARE LAB Blood Venous blood specimen / Unknown 10/18/2024 9:24 AM EDT 10/21/2024 7:42 AM EDT us Terrell Gautam MD LAB POINT OF CARE TE ST DOCKED DEVICE UNSOLICITED RESULTS Final Result [facility] [address] [place] [address] * (ABNORMAL) POCT glucose meter (10/18/2024 7:36 AM EDT) [facility] POCT Glucose 215(H) 74 - 99 [...] for testing. Comment 10/18/2024 7:38 AM EDT [facility] Dioramist ID Kizzy Godfrey 025 7:38 AM EDT HEALTHCARE LAB Device ID [id number] 10/18/2024 7:38 AM EDT [facility] Specimen Type POC Capillary 10/18/2024 7:38 AM EDT [facility] Blood Capillary blood specimen / Unknown 10/18/2024 7:36 AM EDT 10/18/2024 7:38 AM EDT Terrell Gautam MD LAB POINT OF CARE TE ST DOCKED DEVICE UNSOLICITED RESULTS Final Result [facility]ARE [facility] [address] [place] [address] * (ABNORMAL) CBC (10/18/2024 2:09 AM EDT) [facility] WBC Count 16.71(H) 3.70 - 10.30 10*3/uL LAB HEMATOLOGY METHOD 10/18/2024 2:33 AM EDT [facility] RBC Count 2.78(L) 4.60 - 6.10 10*6/uL LAB HEMATOLOGY METHOD 10/18/2024 2:33 AM EDT [facility] HGB 8.5(L) 13.7 - 17.5 g/dL LAB HEMATOLOGY METHOD 10/18/2024 2:33 AM EDT [facility] HCT 25.7(L) 40.0 - 51.0 % LAB HEMATOLOGY METHOD 10/18/2024 2:33 AM EDT [facility] Platelet Count 324 155 - 369 10*3/uL LAB HEMATOLOGY METHOD 10/18/2024 2:33 AM EDT [facility] MCV 92 79 - 98 fL LAB HEMATOLOGY METHOD 10/18/2024 2:33 AM EDT [facility] MCH 30.6 26.0 - 32.0 pg LAB HEMATOLOGY METHOD 10/18/2024 2:33 AM EDT [facility] MCHC 33.1 30.7 - 35.5 g/dL LAB HEMATOLOGY METHOD 10/18/2024 2:33 AM EDT [facility] RDW 13.3 11.5 - 14.5 % LAB HEMATOLOGY METHOD 10/18/2024 2:33 AM EDT [facility] MPV 9.4 8.8 - 12.5 fL LAB HEMATOLOGY METHOD 10/18/2024 2:33 AM EDT [facility] nRBC 0.0 <=0.0 per 100 WBCs LAB HEMATOLOGY METHOD 10/18/2024 2:33 AM EDT [facility] Blood Venous blood specimen / Unknown Venipuncture / Unknown 10/18/2024 2:09 AM EDT 10/18/2024 2:25 AM EDT Nirmal Cueto MD LAB BLOOD ORDERABLES Final Result [facility] [address] [place] [address] * (ABNORMAL) Basic metabolic panel (10/18/2024 2:09 AM EDT) Pathologist [facility] Glucose, Plasma 206(H) 74 - 99 mg/dL 10/18/2024 2:53 AM EDT [facility] BUN, Plasma 24(H) 8 - 23 mg/dL 10/18/2024 2:53 AM EDT [facility] Creatinine, Plasma 1.17 0.70 - 1.20 mg/dL 10/18/2024 2:53 AM EDT [facility] BUN/Creatinine Ratio 21 10/18/2024 2:53 AM EDT [facility] Sodium, Plasma 136 136 - 145 mmol/L 10/18/2024 2:53 AM EDT [facility] Potassium, Plasma 4.8 3.6 - 4.9 mmol/L 10/18/2024 2:53 AM EDT [facility] Chloride, Plasma 104 97 - 107 mmol/L 10/18/2024 2:53 AM EDT [facility] CO2, Plasma 22 22 - 29 mmol/L 10/18/2024 2:53 AM EDT [facility] Anion Gap 10 6 - 16 mmol/L 10/18/2024 2:53 AM EDT [facility] Total Calcium, Plasma 8.5(L) 8.9 - 10.2 mg/dL 10/18/2024 2:53 AM EDT [facility] eGFRcr 69.2 mL/min/1.7 3m*2 10/18/2024 2:53 AM EDT [facility] Comment:Reported eGFRcr in m L/min/1.73m2 is based the CKD-EPI 2020 equation that does not use a race coefficient. Blood Venous blood specimen / Unknown Venipuncture / Unknown 10/18/2024 2:09 AM EDT 10/18/2024 2:25 AM EDT Nirmal Cueto MD LAB BLOOD ORDERABLES Final Result [facility] [address] [place] [address] * (ABNORMAL) Magnesium (10/18/2024 2:09 AM EDT) Magnesium, Plasma 1.8(L) 1.9 - 2.4 mg/dL 10/18/2024 2:53 AM EDT [facility] Blood Venous blood specimen / Unknown Venipuncture / Unknown 10/18/2024 2:09 AM EDT 10/18/2024 2:25 AM EDT Nirmal Cueto MD LAB BLOOD ORDERABLES Final Result [facility] [address] [place] [address] * Phosphorus (10/18/2024 2:09 AM EDT) Phosphorus, Plasma 3.7 2.5 - 4.5 mg/dL 10/18/2024 2:53 AM EDT [facility] Blood Venous blood specimen / Unknown Venipuncture / Unknown 10/18/2024 2:09 AM EDT 10/18/2024 2:25 AM EDT Nirmal Cueto MD LAB BLOOD ORDERABLES Final Result Performing Organization Address City/[facility]/ZIP Co de Phone Number [facility] [address] [place] [address] * (ABNORMAL) Protime-INR (10/18/2024 2:09 AM EDT) Prothrombin Time 14.5(H) 12.0 - 14.3 sec LAB COAGULATION METHOD 10/18/2024 2:53 AM EDT [facility] INR 1.1 0.9 - 1.1 LAB COAGULATION METHOD 10/18/2024 2:53 AM EDT [facility] Blood Venous blood specimen / Unknown Venipuncture / Unknown 10/18/2024 2:09 AM EDT 10/18/2024 2:25 AM EDT Narrative [facility] - 10/18/2024 2:53 AM EDT OPTIMAL INR RANGES FOR PATIENT ON ORAL ANTICOAGULANT THERAPY Prevention of venous thromboembolism INR 2.0 to 3.0 In patients with heart disease: Atrial fibrillation INR 2.0 to 3.0 Valvular heart disease INR 2.0 to 3.0 Tissue heart valves INR 2.0 to 3.0 Mechanical prosthetic valves INR 2.5 to 3.5 Prevention of recurrent CA INR 2.5 to 3.5 us Nirmal Cueto MD LAB BLOOD ORDERABLES Final Result Performing Organization Address City/[facility]/ZIP Co de Phone Number [facility] [address] [place] [address] * (ABNORMAL) POCT glucose meter (10/18/2024 2:08 AM EDT) [facility] POCT Glucose 202(H) 74 - 99 [...] Comment 10/18/2024 2:10 AM EDT [facility] Dioramist ID Jourdan Grimes II 10/18/2024 2:10 AM EDT [facility] LAB Device ID [id number] 10/18/2024 2:10 AM EDT [facility] Specimen Type POC Capillary 10/18/2024 2:10 AM EDT [facility] Blood Capillary blood specimen / Unknown 10/18/2024 2:08 AM EDT 10/18/2024 2:10 AM EDT us Terrell Gautam MD LAB POINT OF CARE TE ST DOCKED DEVICE UNSOLICITED RESULTS Final Result Performing Organization Address City/State/[facility] Co de Phone Number HEALTHCARE LAB [address] [place] [address] * (ABNORMAL) POCT glucose meter (10/17/2024 10:07 PM EDT) [facility] POCT Glucose 300(H) 74 - 99 [...] Comment 10/17/2024 10:10 PM EDT [facility] Dioramist ID Jourdan Grimes II 10/17/2024 10:10 PM EDT HEALTH[facility]ARE LAB Device ID [id number] 10/17/2024 10:10 PM EDT [facility] Specimen Type POC Capillary 10/17/2024 10:10 PM EDT [facility] Blood Capillary blood specimen / Unknown 10/17/2024 10:07 PM EDT 10/17/2024 10:10 PM EDT Terrell Gautam MD LAB POINT OF CARE TE ST DOCKED DEVICE UNSOLICITED RESULTS Final Result Performing Organization Address City/[facility] de Phone Number [facility]ALTHCARE LAB [address] [place] [address] * (ABNORMAL) POCT glucose meter (10/17/2024 8:07 [...] Comment 10/17/2024 8:10 PM EDT [facility] LAB Dioramist ID Jourdan Grimes II 10/17/2024 8:10 PM EDT HEALTH[facility]ARE LAB Device ID [id number] 10/17/2024 8:10 PM EDT [facility]ARE LAB Specimen Type POC Capillary 10/17/2024 8:10 PM EDT [facility] Blood Capillary blood specimen / Unknown 10/17/2024 8:07 PM EDT 10/17/2024 8:10 PM EDT Terrell Gautam MD LAB POINT OF CARE TE ST DOCKED DEVICE UNSOLICITED RESULTS Final Result Performing Organization Address City/[facility]/ZIP Co de Phone Number [facility] [address] [place] [address] * (ABNORMAL) POCT glucose meter (10/17/2024 4:01 [...] Comment 10/17/2024 4:03 PM EDT [facility]ALTH[facility]ARE LAB Dioramist ID Keisha Waller 10/17/2024 4:03 PM EDT HEALTHCARE LAB Device ID [id number] 10/17/2024 4:03 PM EDT [facility]ARE LAB Specimen Type POC Capillary 10/17/2024 4:03 PM EDT [facility] Blood Capillary blood specimen / Unknown 10/17/2024 4:01 PM EDT 10/17/2024 4:03 PM EDT us Terrell Gautam MD LAB POINT OF CARE TE ST DOCKED DEVICE UNSOLICITED RESULTS Final Result Performing Organization Address City/State/[facility] Co de Phone Number [facility]ARE LAB [address] [place] [address] * (ABNORMAL) POCT glucose meter (10/17/2024 1:25 PM EDT) [facility] POCT Glucose 225(H) 74 - 99 mg/dL [...] 10/17/2024 1:27 PM EDT [facility] Dioramist ID Kizzy Godfrey 025 1:27 PM EDT HEALTHCARE LAB Device ID [id number] 10/17/2024 1:27 PM EDT [facility] LAB Specimen Type POC Capillary 10/17/2024 1:27 PM EDT [facility] LAB Blood Capillary blood specimen / Unknown 10/17/2024 1:25 PM EDT 10/17/2024 1:27 PM EDT us Terrell Gautam MD LAB POINT OF CARE TE ST DOCKED DEVICE UNSOLICITED RESULTS Final Result Performing Organization Address City/[facility]/ZIP Co de Phone Number [facility] [address] [place] [address] * [place] Less than 1 Hour Intraoperative (10/17/2024 1:18 PM EDT) Narrative IMAGING - 10/17/2024 2:05 PM EDT Images were obtained for surgical purposes. See Terrell Gautam's surgical note in the patient's chart for the findings. Terrell Gautam MD IMG FLUOROSCOPY PROCEDURES Fi nal Result Performing Organization Address [facility] Co de Phone Number IMAGING * POCT ACT (10/17/2024 12:23 PM EDT) ACT+ (HIGH RANGE) 211 68 - 600 Seconds 10/29/2024 7:28 AM EDT [facility]ALTH[facility]ARE LAB Dioramist ID Donna Mcmillan 10/29/2024 7:28 AM EDT [facility]ARE LAB ACT Device ID [id number] 10/29/2024 7:28 AM EDT [facility]ALTH[facility]ARE LAB Comment 10/29/2024 7:28 AM EDT [facility] Comment: ACT performed by [...] Final Result Performing Organization Address [facility] Co de Phone Number [facility] [address] [place] [place] [id number] [place] [address] LAB [address] [place] [address] * (ABNORMAL) Blood gas, arterial (10/17/2024 11:48 AM EDT) pH, Arterial 7.34 7.31 - 7.42 LAB HEMATOLOGY METHOD 10/17/2024 11:54 AM EDT [facility] pCO2, Arterial 41 32 - 45 mmHg LAB HEMATOLOGY METHOD 10/17/2024 11:54 AM EDT [facility] pO2, Arterial 202 >80 mmHg LAB HEMATOLOGY METHOD 10/17/2024 11:54 AM EDT [facility] SO2, Measured, Arterial 100(H) 94 - 98 % LAB HEMATOLOGY METHOD 10/17/2024 11:54 AM EDT [facility] Base Excess, Arterial -3.2(L) -2.0 - 3.0 mmol/L LAB HEMATOLOGY METHOD 10/17/2024 11:54 AM EDT [facility] Bicarbonate, Calculated, Arterial 22 22 - 26 mmol/L LAB HEMATOLOGY METHOD 10/17/2024 11:54 AM EDT [facility] Hematocrit, Whole Blood 28.6(L) 40.0 - 51.0 % LAB HEMATOLOGY METHOD 10/17/2024 11:54 AM EDT [facility] Sodium, Whole Blood 137 136 - 145 mmol/L LAB HEMATOLOGY METHOD 10/17/2024 11:54 AM EDT [facility] Potassium, Whole Blood 4.5 3.6 - 4.9 mmol/L LAB HEMATOLOGY METHOD 10/17/2024 11:54 AM EDT [facility] Chloride, Whole Blood 112(H) 97 - 107 mmol/L LAB HEMATOLOGY METHOD 10/17/2024 11:54 AM EDT [facility] Glucose, Whole Blood 201(H) 74 - 99 mg/dL LAB HEMATOLOGY METHOD 10/17/2024 11:54 AM EDT [facility] Ionized Calcium, Whole Blood 4.8 4.6 - 5.1 mg/dL LAB HEMATOLOGY METHOD 10/17/2024 11:54 AM EDT [facility] Lactate, Arterial, Whole Blood 2.3(H) 0.5 - 1.6 mmol/L LAB HEMATOLOGY METHOD 10/17/2024 11:54 AM EDT [facility] Blood Arterial blood specimen / Unknown Arterial Puncture / Unknown 10/17/2024 11:48 AM EDT 10/17/2024 11:53 AM EDT us Jenna Lopez CRNA LAB BLOOD ORDERABLES Final Re sult [facility] [address] [place] [address] * POCT ACT (10/17/2024 11:41 AM EDT) ACT+ (HIGH RANGE) 175 68 - 600 Seconds 10/29/2024 7:28 AM EDT [facility]ALTHCARE LAB Dioramist ID Oneyda Alicea 10/29/2024 7:28 AM EDT [facility]ALTH[facility]ARE LAB ACT Device ID [id number] 10/29/2024 7:28 AM EDT [facility]ALTH[facility]ARE LAB Comment 10/29/2024 7:28 AM EDT [facility] Comment: ACT performed by [...] DEVICE UNSOLICITED RESULTS Final Result [facility] [address] LAB [address] [place] [address] * POCT ACT (10/17/2024 11:11 AM EDT) ACT+ (HIGH RANGE) 252 68 - 600 Seconds 10/29/2024 7:28 AM EDT HEALTHCARE LAB Dioramist ID Donna Mcmillan 10/29/2024 7:28 AM EDT [facility]ALTH[facility]ARE LAB ACT Device ID [id number] 10/29/2024 7:28 AM EDT [facility]ALTH[facility]ARE LAB Comment 10/29/2024 7:28 AM EDT [facility] Comment: ACT performed by [...] DOCKED DEVICE UNSOLICITED RESULTS Final Result [facility] [address] LAB [address] [place] [address] * (ABNORMAL) Blood gas, arterial (10/17/2024 10:46 AM EDT) pH, Arterial 7.35 7.31 - 7.42 LAB HEMATOLOGY METHOD 10/17/2024 10:56 AM EDT [facility] pCO2, Arterial 42 32 - 45 mmHg LAB HEMATOLOGY METHOD 10/17/2024 10:56 AM EDT [facility] pO2, Arterial 161 >80 mmHg LAB HEMATOLOGY METHOD 10/17/2024 10:56 AM EDT [facility] SO2, Measured, Arterial 100(H) 94 - 98 % LAB HEMATOLOGY METHOD 10/17/2024 10:56 AM EDT [facility] Base Excess, Arterial -2.2(L) -2.0 - 3.0 mmol/L LAB HEMATOLOGY METHOD 10/17/2024 10:56 AM EDT [facility] Bicarbonate, Calculated, Arterial 23 22 - 26 mmol/L LAB HEMATOLOGY METHOD 10/17/2024 10:56 AM EDT [facility] Hematocrit, Whole Blood 29.9(L) 40.0 - 51.0 % LAB HEMATOLOGY METHOD 10/17/2024 10:56 AM EDT [facility] Sodium, Whole Blood 138 136 - 145 mmol/L LAB HEMATOLOGY METHOD 10/17/2024 10:56 AM EDT [facility] Potassium, Whole Blood 4.0 3.6 - 4.9 mmol/L LAB HEMATOLOGY METHOD 10/17/2024 10:56 AM EDT [facility] Chloride, Whole Blood 110(H) 97 - 107 mmol/L LAB HEMATOLOGY METHOD 10/17/2024 10:56 AM EDT [facility] Glucose, Whole Blood 174(H) 74 - 99 mg/dL LAB HEMATOLOGY METHOD 10/17/2024 10:56 AM EDT [facility] Ionized Calcium, Whole Blood 5.1 4.6 - 5.1 mg/dL LAB HEMATOLOGY METHOD 10/17/2024 10:56 AM EDT [facility] Lactate, Arterial, Whole Blood 1.4 0.5 - 1.6 mmol/L LAB HEMATOLOGY METHOD 10/17/2024 10:56 AM EDT [facility] Blood Arterial blood specimen / Unknown Arterial Puncture / Unknown 10/17/2024 10:46 AM EDT 10/17/2024 10:54 AM EDT us Jenna Lopez CRNA LAB BLOOD ORDERABLES Final Re sult [facility] [address] [place] [address] * POCT ACT (10/17/2024 10:37 AM EDT) ACT+ (HIGH RANGE) 206 68 - 600 Seconds 10/29/2024 7:28 AM EDT [facility] Dioramist ID Donna Mcmillan 10/29/2024 7:28 AM EDT [facility] ACT Device ID [id number] 10/29/2024 7:28 AM EDT [facility] Comment 10/29/2024 7:28 AM EDT [facility] Comment: ACT performed by [...] DEVICE UNSOLICITED RESULTS Final Result [facility] [address] LAB [address] [place] [address] * Surgical Pathology Exam (10/17/2024 10:27 AM EDT) Case Report Surgical Pathology Case: [id number] Authorizing Provider: Terrell Gautam MD Collected: 10/17/2024 1027 Ordering Location: [facility] Received: 10/17/2024 1325 Pathologist: Haydee Osborne MD Specimen: Other (specify site), left common femoral plaque 10/21/2024 10:16 AM EDT [facility] Final Diagnosis A. LEFT COMMON FEMORAL PLAQUE, EXCISION: - CALCIFIED PLAQUE 10/21/2024 10:16 AM EDT [facility] at 1016 EDT Clinical Information Critical limb ischemia of left lower extremity [I70.222] 10/21/2024 10:16 AM EDT [facility] Gross Description A. LEFT COMMON FEMORAL PLAQUE Received in formalin labeled l eft common femoral plaque , is one aggregate of red-gabriel hard portions of plaque measuring 3.7 x 2.5 x 0.9 cm. The specimen is serially sectioned and data entry representative sections are submitted in cassette A1. Cold Time: <1m Kenia Aceves 10/21/2024 10:16 AM EDT [facility] Note: A resident was involved in the service. I attest I examined the relevant preparations for the specimens and confirmed the diagnosis or interpretation. 10/21/2024 10:16 AM EDT [facility] Tissue Topography unknown / Unknown 10/17/2024 10:27 AM EDT 10/17/2024 1:25 PM EDT Comment:Pre-op diagnosis: Critical limb ischemia of left lower extremity [I70.222] us Terrell Gautam MD LAB PATHOLOGY ORDERABLES Gwen grimaldo Result [facility] [address] [place] [address] * POCT ACT (10/17/2024 10:03 AM EDT) ACT+ (HIGH RANGE) 244 68 - 600 Seconds 10/29/2024 7:28 AM EDT [facility]ALTH[facility]ARE LAB Dioramist ID Donna Mcmillan Maya 10/29/2024 7:28 AM EDT HEALTHCARE LAB ACT Device ID [id number] 10/29/2024 7:28 AM EDT [facility] Comment 10/29/2024 7:28 AM EDT [facility] Comment: ACT performed by [...] DEVICE UNSOLICITED RESULTS Final Result [facility] [address] [place] [address] * (ABNORMAL) Blood gas, arterial (10/17/2024 9:45 AM EDT) pH, Arterial 7.37 7.31 - 7.42 LAB HEMATOLOGY METHOD 10/17/2024 9:55 AM EDT [facility] pCO2, Arterial 43 32 - 45 mmHg LAB HEMATOLOGY METHOD 10/17/2024 9:55 AM EDT [facility] pO2, Arterial 177 >80 mmHg LAB HEMATOLOGY METHOD 10/17/2024 9:55 AM EDT [facility] SO2, Measured, Arterial 100(H) 94 - 98 % LAB HEMATOLOGY METHOD 10/17/2024 9:55 AM EDT [facility] Base Excess, Arterial -0.5 -2.0 - 3.0 mmol/L LAB HEMATOLOGY METHOD 10/17/2024 9:55 AM EDT [facility] Bicarbonate, Calculated, Arterial 25 22 - 26 mmol/L LAB HEMATOLOGY METHOD 10/17/2024 9:55 AM EDT [facility] Hematocrit, Whole Blood 30.0(L) 40.0 - 51.0 % LAB HEMATOLOGY METHOD 10/17/2024 9:55 AM EDT [facility] Sodium, Whole Blood 137 136 - 145 mmol/L LAB HEMATOLOGY METHOD 10/17/2024 9:55 AM EDT [facility] Potassium, Whole Blood 4.3 3.6 - 4.9 mmol/L LAB HEMATOLOGY METHOD 10/17/2024 9:55 AM EDT [facility] Chloride, Whole Blood 108(H) 97 - 107 mmol/L LAB HEMATOLOGY METHOD 10/17/2024 9:55 AM EDT [facility] Glucose, Whole Blood 191(H) 74 - 99 mg/dL LAB HEMATOLOGY METHOD 10/17/2024 9:55 AM EDT [facility] Ionized Calcium, Whole Blood 5.0 4.6 - 5.1 mg/dL LAB HEMATOLOGY METHOD 10/17/2024 9:55 AM EDT [facility] Lactate, Arterial, Whole Blood 1.3 0.5 - 1.6 mmol/L LAB HEMATOLOGY METHOD 10/17/2024 9:55 AM EDT [facility] Blood Arterial blood specimen / Unknown Arterial Line / Unknown 10/17/2024 9:45 AM EDT 10/17/2024 9:52 AM EDT Jenna Lopez CRNA LAB BLOOD ORDERABLES Final Re sult [facility] [address] [place] [address] * (ABNORMAL) Blood gas, arterial (10/17/2024 8:47 AM EDT) pH, Arterial 7.37 7.31 - 7.42 LAB HEMATOLOGY METHOD 10/17/2024 8:59 AM EDT [facility] pCO2, Arterial 43 32 - 45 mmHg LAB HEMATOLOGY METHOD 10/17/2024 8:59 AM EDT [facility] pO2, Arterial 205 >80 mmHg LAB HEMATOLOGY METHOD 10/17/2024 8:59 AM EDT [facility] SO2, Measured, Arterial 100(H) 94 - 98 % LAB HEMATOLOGY METHOD 10/17/2024 8:59 AM EDT [facility] Base Excess, Arterial -0.3 -2.0 - 3.0 mmol/L LAB HEMATOLOGY METHOD 10/17/2024 8:59 AM EDT [facility] Bicarbonate, Calculated, Arterial 25 22 - 26 mmol/L LAB HEMATOLOGY METHOD 10/17/2024 8:59 AM EDT [facility] Hematocrit, Whole Blood 31.3(L) 40.0 - 51.0 % LAB HEMATOLOGY METHOD 10/17/2024 8:59 AM EDT [facility] Sodium, Whole Blood 138 136 - 145 mmol/L LAB HEMATOLOGY METHOD 10/17/2024 8:59 AM EDT [facility] Potassium, Whole Blood 4.0 3.6 - 4.9 mmol/L LAB HEMATOLOGY METHOD 10/17/2024 8:59 AM EDT [facility] Chloride, Whole Blood 108(H) 97 - 107 mmol/L LAB HEMATOLOGY METHOD 10/17/2024 8:59 AM EDT [facility] Glucose, Whole Blood 162(H) 74 - 99 mg/dL LAB HEMATOLOGY METHOD 10/17/2024 8:59 AM EDT [facility] Ionized Calcium, Whole Blood 5.2(H) 4.6 - 5.1 mg/dL LAB HEMATOLOGY METHOD 10/17/2024 8:59 AM EDT [facility] Lactate, Arterial, Whole Blood 1.7(H) 0.5 - 1.6 mmol/L LAB HEMATOLOGY METHOD 10/17/2024 8:59 AM EDT [facility] Blood Arterial blood specimen / Unknown Arterial Puncture / Unknown 10/17/2024 8:47 AM EDT 10/17/2024 8:58 AM EDT us Jenna Lopez [facility] LAB BLOOD ORDERABLES Final Re sult [facility] [address] [place] [address] * POCT ACT (10/17/2024 8:46 AM EDT) ACT+ (HIGH RANGE) 101 68 - 600 Seconds 10/29/2024 7:28 AM EDT [facility]ALTHCARE LAB Dioramist ID Donna Mcmillan Maya 10/29/2024 7:28 AM EDT HEALTHCARE LAB ACT Device ID [id number] 10/29/2024 7:28 AM EDT [facility]ALTH[facility]ARE LAB Comment 10/29/2024 7:28 AM EDT [facility] Comment: ACT performed by [...] Final Result Performing Organization Address [facility] Co de Phone Number HEALTHCARE LAB [address] LAB [address] [place] [address] * Type and Screen (10/17/2024 7:19 AM EDT) Pathologist [facility] ABO/Rh A Negative 10/17/2024 7:04 AM EDT BLOOD BANK Antibody Screen Negative 10/17/2024 7:04 AM EDT BLOOD BANK Specimen Expiration 10/20/2024 23:59 10/17/2024 7:04 AM EDT BLOOD BANK Blood Venous blood specimen / Unknown Venipuncture / Unknown 10/17/2024 7:19 AM EDT 10/17/2024 7:28 AM EDT us Maria Fernanda Mccallum MD LAB BLOOD BANK TEST ORDERAB LES Final Result Performing Organization Address [facility] de Phone Number BLOOD BANK [address] [place] [address] * (ABNORMAL) POCT glucose meter (10/17/2024 6:44 AM EDT) [facility] POCT Glucose 178(H) 74 - 99 [...] 10/17/2024 6:49 AM EDT [facility] Dioramist ID Hunter Burroughs 10/18/19 6:49 AM EDT [facility] Device ID [id number] 10/17/2024 6:49 AM EDT HEALTHCARE LAB Specimen Type POC Capillary 10/17/2024 6:49 AM EDT HEALTHCARE LAB Blood Capillary blood specimen / Unknown 10/17/2024 6:44 AM EDT 10/17/2024 6:49 AM EDT Terrell Gautam MD LAB POINT OF CARE TE ST DOCKED DEVICE UNSOLICITED RESULTS Final Result [facility] LAB [address] [place] [address] documented in this encounter Visit Diagnoses Diagnosis [...] documented as of this encounter Care Teams Food Broker Relationship Specialty Start Date End Date Asad Victor MD [address] [place] [id number] PCP - General 10/07/22 documented as of this encounter
--- OUTSIDE RECORDS SUMMARY | 2024-10-17 07:51 | XMS_ITS | Encounter Summary ---
Author Organization [facility] Address [address] [id number] Care Team Providers Care Paperhanger Contractor Name Role Phone Asad Victor MD Primary Care Provider + [phone] Reason for Visit * Auth/Cert (Routine) Specialty Diagnoses / Procedures Referred By Contac t Referred To Contact Diagnoses Critical limb ischemia of left lower extremity Critical limb ischemia of left lower extremity [I70.222] Procedures LA VEIN BYPASS GRAFT,FEM-POP CREATION, BYPASS, ARTERIAL, FEMORAL TO POPLITEAL Terrell Gautam MD [address] [facility] [address] [place] [address] Phone: tel: fax: PAV A OPERATING ROOM [address] [place] [address] Phone: tel: Referral ID Status Reason Start Date Expiration Date Visits Re quested Visits Authorized [id number] 1 1 Encounter Details Date Type Department Care Team (Late st Contact Info) Description 10/17/2024 7:51 AM EDT Anesthesia Event P[facility] A OPERATING ROOM [address] [place] [phone] Maria Fernanda Mccallum MD [address] [place] [address] Anesthesia Record Procedure Summary Procedure [...] Hand; Site Prep: Chlorhexidine ; Local Anesth: [place]; Technique: Anatomical landmarks; Inserted by: CHRISTIAN Acuna; [...] any time in the past 12 m [facility], were you homeless or living in a detention (including now)? No 10/18/2024 CAGE ASSESSMENT Answer [...] drink first t dino in the morning (EYE-FIELD PROFESSIONAL) to steady your nerves or to [...] * Anesthesia Postprocedure Evaluation - Jenna Lopez, ADMINISTRATIVE HEARING OFFICER - 10/17/2024 1:29 PM EDT Patient: [...] by Swetha Villareal MD Staffing Performed: ISH ADMINISTRATIVE HEARING OFFICER: Jenna Lopez CRNA * Anesthesia Procedure Notes - Jenna Lopez CRNA - 10/17/2024 9:00 AM EDT Associated Order(s): Airway Airway Date/Time: 10/17/2024 8:03 AM Reason: elective Airway not difficult General Information and Staff Patient location during procedure: OR ADMINISTRATIVE HEARING OFFICER: Jenna Lopez CRNA Performed: ADMINISTRATIVE HEARING OFFICER Patient Condition Indications for airway management: [...] note 09/25/24 (media) + CAD s/p multiple UT's and 3V CABG 02/2019, 2 stents prior to CABG Atrial Fibrillation with RVR s/p CABG + carotid artery disease s/p R CEA 2016 + 3rd degree AV block REVERSER-P placed 08/2023 for Wenkeback with 11 sec pause + HLD + HTN - controlled + PAD 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 CORONARY ANGIOPLASTY Left Coronary Angiography With Concomitant Left Heart Catheterization from [facility] ??? CORONARY ARTERY BYPASS GRAFT N/A 2018 [...] Description 12/13/2024 2:00 PM EDT Office Visit [facility] [address] [place] [address] Oscar Appiah MD [address] [facility] [address] [place] [address] 12/19/2024 7:30 AM EDT Appointment [facility] [address] [place] [address] 12/19/2024 8:00 AM EDT Appointment [facility] [address] [place] [address] [address] [place] [address] 12/19/2024 9:00 AM EDT Office Visit [facility] [address] [place] [address] [address] [place] [address] Nathaly Nowak MD [address] [place] [address] [address] [place] [address] documented as of this encounter Goals Goal Patient Goal Type Associated Problems Recent Progress Patient-Stated? Author Autogenera louise Goal Care Plan Autogenerated Problem No Ekta rAnett documented as of this encounter Procedures Procedure Name Priority Date/Time Associated Diagnosis Comments ANESTHESIA ULTRASOUND GUIDED Routine 10/17/2024 8:52 AM EDT PB ANESTHESIA NON-TIMED PROCEDURE PLACEHOLDER Routine 10/17/2024 8:25 AM EDT PB ANESTHESIA PLACEHOLDER Routine 10/17/2024 8:03 AM EDT LA AN ELECTIVE ENDOTRACHEAL AIRWAY Routine 10/17/2024 8:03 [...] Performed by Swetha Villareal MD Staffing Performed: ADMINISTRATIVE HEARING OFFICER ADMINISTRATIVE HEARING OFFICER: Jenna Lopez CRNA Maria Fernanda Mccallum MD ANESTHESIA ORDERABLES Edite d Result - Final * LA AN ELECTIVE ENDOTRACHEAL AIRWAY, PB ANESTHESIA PLACEHOLDER (10/17/2024 8:03 AM EDT) Narrative Jenna Lopez CRNA - 10/17/2024 8:03 AM EDT Jenna Lopez CRNA 10/17/2024 9:00 AM Airway Date/Time: 10/17/2024 8:03 AM Reason: elective Airway not difficult General Information and Staff Patient location during procedure: OR ADMINISTRATIVE HEARING OFFICER: Jenna Lopez CRNA Performed: ISH Patient [...] Trace AR. The images were Saved in [employer]. The study was technically adequate. Comments: [...] documented as of this encounter Care Teams Paperhanger Contractor Relationship Specialty Start Date End Date Asad Victor MD [address] [place] [address] PCP - General 10/07/22 documented as of this encounter
--- OUTSIDE RECORDS SUMMARY | 2024-10-17 08:00 | XMS_ITS | Encounter Summary ---
Author Organization [facility] Address [address] [place] [address] Care Team Providers Care Communications Technologist Name Role Phone Asad Victor MD Primary Care Provider + [phone] Reason for Visit * Auth/Cert (Routine) Specialty Diagnoses / Procedures Referred By Contac t Referred To Contact Diagnoses Critical limb ischemia of left lower extremity Critical limb ischemia of left lower extremity [I70.222] Procedures WV VEIN BYPASS GRAFT,FEM-POP CREATION, BYPASS, ARTERIAL, FEMORAL TO POPLITEAL Terrell Gautam MD [address] [address] Phone: tel: fax: [facility] [address] [place] [address] Phone: tel: Referral ID Status Reason Start Date Expiration Date Visits Re quested Visits Authorized [id number] 1 1 Encounter Details Date Type Department Care Team (Late st Contact Info) Description 10/17/2024 8:00 AM EDT - 10/17/2024 2:50 PM EDT Surgery [facility] [address] [place] [address] Terrell Gautam MD [address] [address] CREATION, BYPASS, ARTERIAL, FEMORAL TO POPLITEAL [61060 (CPT )] Surgery Details Date/Time Status Location [...] [facility] in the [facility] were you homeless or living in [...] drink first t dino in the morning (EYE-NEWSCAST DIRECTOR) to steady your nerves or to get rid of a hangover? 0 10/18/2021 CAGE Questionnaire Score 0 022 Utilities Answer Date Recorded In the past 12 months has th e [employer], gas, oil, or water [employer] threatened to shut off services in your [...] of Care Review 10/19/2024 1145 by Keyla hCow Outcome: Met Flowsheets Taken 10/19/2024 114 Progress: [...] provided Taken 10/17/20242107 by Jourdan Grimes II, team truck driver Review/Management: medications reviewed Problem: Skin Injury [...] Ongoing, Progressing Intervention: Promote Activity and Functional [place] Flowsheets (Taken 10/19/2024 1048) Self-Care Promotion: BADL personal objects within reach meal set-up provided * Yuni Ramires - Keyla Chow - 10/19/2024 11:45 AM EDT Images from the original note were not included. 57497 After Peripheral Artery Bypass Surgery: In the [...] home. Last Reviewed Date: 2023 00:00:00 ?? 9969-9349 The [employer]. All rights reserved. This information is not intended as a substitute for professional medical care. Always follow your healthcare professional's instructions. * Progress Notes - Emelina Friend - 10/19/2024 11:44 AM EDT Case Management Adult Progress Note Bev Bobby 64 y.o. male CSN: [id number] Admission: 10/17/2024 6:21 AM Primary Problem: Critical [...] if any other needs arise. Emelina Friend CURRICULUM DEVELOPMENT SPECIALIST, QUALITY ASSURANCE INSPECTOR Social Work Case Management * Yuni Ramires - Keyla Chow - 10/19/2024 11:44 AM EDT Images from the original note were not included. [id number] Peripheral Artery Disease (PAD) Peripheral artery disease [...] cause. Last Reviewed Date: 2024 00:00:00 ?? 5948-2356 [employer]. All rights reserved. This information is not intended as a substitute for professional medical care. Always follow your healthcare professional's instructions. * Yuni Ramires - Keyla Chow - 10/19/2024 11:44 AM EDT Images from the original note were not included. 51305 Leg Artery Emergencies: Critical Limb Ischemia (CLI) [...] appointments. Last Reviewed Date: 2023 00:00:00 ?? 0428-6672 [employer]. All rights reserved. This information is not intended as a substitute for professional medical care. Always follow your healthcare professional's instructions. * Discharge Summary - Dandy Baltazar MD - 10/19/2024 11:31 AM EDT Hospitalization Admit Date/Time: 10/17/2024 6:21 AM Admitting Attending: Terrell Gautam Discharge Date: 10/19/24 Discharge Attending Physician: Nirmal Cueto MD PCP name and Address: Asad Victor MD (Inactive) [address] [facility] [address] Referring provider name and address: Timothy Marques PA [address] [place] [address] Chief Concern, Brief History of Present Illness, and Hospital Course Bev Bobby is an 64 y.o. 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 He [...] These medications were sent to [facility] [place], [place] - [address] [facility] 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 He [...] provided Taken 10/17/20242107 by Jourdan Grimes II team truck driver Review/Management: medications reviewed Problem: Skin Injury [...] Ongoing, Progressing Intervention: Promote Activity and Functional [place] Flowsheets (Taken 10/19/2024 1048) Self-Care Promotion: BADL [...] evaluation. PARTICIPANTS IN CARE Visitors Present No Figure Model (if applicable) PRESENTATION Oxygen Oxygen Therapy: None [...] Level of Mobility Ambulatory- household only Mobility [place] Independent gait with device (rollator) History of [...] numbness in rodney) BED MOBILITY Level of [place] Physical/Non- physical Assist Adaptive Equipment Utilized Rolling/ Turning Scooting/ Bridging Modified independence (anteriorly to EOB) Bed rails Supine to Sit Modified [place] (to the right) (HOB flat) Bed rails Sit to Supine Interventions HOB flat to simulate home environment TRANSFERS Level of [place] Physical/Non- physical Assist Adaptive Equipment Utilized Sit [...] stable surfaces during transitions. AMBULATION Level of [place] Distance Adaptive Equipment Utilized Ambulation Standby assist, [...] Posture: Forward head, Rounded shoulders Level of [place] Balance Support Interventions Static Sit Independent Right [...] Assessments Standardized Assessments: AMPA 6-Clicks Mobility Assessment [facility] 6-Clicks Mobility Assessment Difficulty patient has [...] 3-5 steps with a railing?: A little [facility] 6-Clicks Mobility Assessment Total : [...] evaluation/session. Participants in Care Family/Caregiver Present: No Figure Model: Not Applicable Presentation Oxygen Therapy: None (Room [...] Level of Mobility: Ambulatory- household only Mobility [place]: Independent gait with device (rollator) History of [...] Mobility Bed Mobility Exam: Scooting/Bridging Level of [place]: Modified independence (anteriorly to EOB) Assistive Device: Bed rails Bed Mobility Exam: Supine to Sit Level of [place]: Modified [place] (to the right) Physical/Nonphysical Assist: (HOB flat) Assistive Device: Bed rails Transfers Transfer Exam: Sit to stand Level of [place]: Stand-by assist Physical/Nonphysical Assist: Supervision, Verbal Cues, Minimal cues Assistive Device: Walker, rolling Transfer Exam: Stand to Sit Level of [place]: Stand-by assist Physical/Nonphysical Assist: Supervision, Verbal Cues, [...] regarding toileting at this time. Standardized Assessments [facility] 6-Click Daily Activities Help from Other: Don/Doff Regular Lower Body Clothings: None Help From Other: Bathing: Little Help From Other: Toileting: None Help From Other: Don/Doff Upper Body Clothings: None Help From Other: Grooming: None Help From Other: Eating Meals: None [facility] 6 Click - Daily Activities Score: 23/24 [facility] Scoring Interpretation: Scores greater than [...] Note Bev Bobby 64 y.o. male CSN: [id number] Admission: 10/17/2024 6:21 AM Primary Problem: Critical limb ischemia of left lower extremity Package Sorter reviewed chart and spoke with patient to complete this Initial Case Management Assessment. PCP: Asad Victor MD (Inactive) - Dr. Palomo Preferred pharmacy is [facility] Emergency Contact: Extended Emergency Contact Information Primary Emergency Contact: Patti Hill Relation: Sister Figure Model needed? No Insurance: Primary Visit Coverage Payer Plan Sponsor Code Group Number Group Name [facility] MEDICARE [facility] MEDICARE REPLACEMENT [id number] Primary Visit Coverage Subscriber Subscriber ID Subscriber Name Subscriber [employer] [facility] Subscriber Address [id number] BEV BOBBY [id number] [place] [address] Secondary Visit Coverage Payer Plan Sponsor Code Group Number Group Name [facility] [facility] Secondary Visit Coverage Subscriber Subscriber ID Subscriber Name Subscriber [employer] Subscriber Address [id number] BEV BOBBY [id number] [place] [address] Patient information: Primary Caregiver: Self Daily Living Activities: Functional Status: Independent Living Arrangements: Alone Type of Residence: Private residence, Single Level [address] [place] [address] Current DME: Equipment Currently Used at Home: joy monterroso Income Information: Income Source: Retired Income/Expense Information: Income meets expenses Current Resources Utilized: Food [employer] Housing Circumstances-Z Codes: Housing Circumstances (select all [...] Dialysis Services: None. Living Will/Advance Directive/Power of Trout Farmer /Guardian: Denied. Additional Comments: Patient is not medically ready for discharge. SW will continue to follow. Mariia Monterroso QUALITY ASSURANCE INSPECTOR * Care Plan - Emilia Alonso RN [...] from the original note were not included. [facility] Department of Surgery Division of Vascular [...] Prevention: activity supervised assistive device/personal items within [facility] fall prevention program maintained lighting adjusted [...] Agree with above assessment and evaluation from resident/FRAME WELDER [employer] TRAIL[employer]. * Op Note - Terrell Gautam MD - 10/17/2024 8:52 AM EDT Operative Note Date: 10/17/24 Location: [place] Name: Bev Bobby, : 1960, Diagnoses: Pre-op Diagnosis Critical limb ischemia of left lower extremity Common femoral artery pseudoaneurysm Post-op Diagnosis Critical limb ischemia of left lower extremity Common femoral artery pseudoaneurysm Procedure(s): Left common/superficial/profunda femoral thromboendarterectomy with bovine patch repair Left external iliac artery/RETAIL SALES REPRESENTATIVE stent Attending Surgeon(s): * Terrell Gautam - Primary Franchise Sales Manager(s): * Luna Beckett MD - Resident [...] Necessity Reasons Recent surgery contiguous with urinary tract/CRANBERRY BOG SUPERVISOR/colorectal 10/17/24 190 Output (mL) 50 mL 10/18/24 08 Implants Type Name Action Serial No. VASCUGUARD 8 X 8 - [id number] Implanted STENT ENDOPROSTHESIS VIABAHN 9FR [id number] - [id number] Implanted [id number] Specimen: Specimens ID Source Frozen? 1 Other [...] and distal control. We then proceeded with qdved-nhs-otza exposure of the popliteal artery. A medial [...] balloon dilated thestent with a 9 mm [place]. We closed the arteriotomy with a single [...] 10/17/2024 8:52 AM EDT Date: 10/17/24 Location: [place] Name: Bev Bobby, : 1960, Diagnoses: Pre-op Diagnosis Critical limb ischemia of left lower extremity Common femoral artery pseudoaneurysm Post-op Diagnosis Critical limb ischemia of left lower extremity Common femoral artery pseudoaneurysm Procedure(s): Left common/superficial/profunda femoral thromboendarterectomy with bovine patch repair Left external iliac artery/RETAIL SALES REPRESENTATIVE stent Attending Surgeon(s): * Terrell Gautam - Primary Franchise Sales Manager(s): * Luna Beckett MD - Resident - Assisting * Dandy Baltazar MD - Fellow Anesthesia: General ASA: III Blood Administration: Blood Product Administration History None Estimated Blood Loss: 300 mL Drains: Urethral Catheter Temperature probe 16 Fr. (Active) Implants Type Name Action Serial No. VASCUGUARD 8 X 8 - [id number] Implanted STENT ENDOPROSTHESIS VIABAHN 9FR [id number] - [id number] Implanted [id number] Specimen: Specimens ID Source Frozen? 1 Other [...] issues. 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 He previouslyunderwent thrombin injection. He reports pain in his calves. He presents today for scheduled left lower extremity femoral to mhyfs-uel-swmi popliteal bypass. Planned likely use PTFE. He [...] 16. Results Review {Vanishing Link Review Results :[id number] I have reviewed the latest lab and imaging results. Assessment & Plan Critical limb ischemia of left lower extremity Proceed with scheduled surgery left lower extremity femoral to mdnba-wye-kzox popliteal artery bypass graft. Extensive discussion had [...] 10 mL 10 mL Intravenous PRN Jerry Holocmb MD Cosigned by Terrell Gautam MD at [...] Description 12/13/2024 2:00 PM EDT Office Visit [facility] [address] [place] [phone] Oscar Appiah MD [address] [facility] [address] [place] [phone] 12/19/2024 7:30 AM EDT Appointment [facility] [address] [place] [address] 12/19/2024 8:00 AM EDT Appointment [facility] [address] [place] [address] 12/19/2024 9:00 AM EDT Office Visit [facility] [address] [place] [address] Nathaly Nowak MD [address] [facility] [address] [place] [address] Pending Results Name Type Priority Associated Diagnoses [...] PREPARE RBC STAT 10/17/2024 8:06 AM EDT WV VEIN BYPASS GRAFT,FEM-POP 10/17/2024 7:38 AM EDT Critical limb ischemia of left lower extremity TYPE AND SCREEN Routine 10/17/2024 7:19 AM EDT POCT GLUCOSE METER UNSOLICITED RESULTS Routine 10/17/2024 6:44 AM EDT documented in this encounter Results * (ABNORMAL) POCT glucose meter (10/19/2024 11:40 AM EDT) Pathologist [facility] POCT Glucose 207(H) 74 - 99 mg/dL [...] 10/19/2024 11:42 AM EDT HEALTHCARE LAB Corporate Licensed Broker ID KamranoJb 10/20/19 11:42 AM EDT HEALTHCARE LAB Device ID [id number] 10/19/2024 11:42 AM EDT HEALTHCARE LAB Specimen Type POC Capillary 10/19/2024 11:42 AM EDT [facility] Blood Capillary blood specimen / Unknown 10/19/2024 11:40 AM EDT 10/19/2024 11:42 AM EDT us Terrell Gautam MD LAB POINT OF CARE TE ST DOCKED DEVICE UNSOLICITED RESULTS Final Result Performing Organization Address City/State/[facility] Co de Phone Number HEALTHCARE LAB [address] [place] [address] * (ABNORMAL) Protime-INR (10/19/2024 8:25 AM EDT) [facility] Prothrombin Time 17.5(H) 12.0 - 14.3 [...] INR 2.5 to 3.5 Prevention of recurrent CO INR 2.5 to 3.5 us Nirmal Cueto MD LAB BLOOD ORDERABLES Final Result Performing Organization Address [facility]/ZIP Co de Phone Number [facility] [address] [place] [address] * (ABNORMAL) Phosphorus (10/19/2024 8:25 AM EDT) Phosphorus, Plasma 2.2(L) 2.5 - 4.5 mg/dL 10/19/2024 9:12 AM EDT [facility] Blood Venous blood specimen / Unknown Venipuncture / Unknown 10/19/2024 8:25 AM EDT 10/19/2024 8:43 AM EDT Nirmal Cueto MD LAB BLOOD ORDERABLES Final Result Performing Organization Address [facility] Co de Phone Number [facility] [address] [place] [address] * Magnesium (10/19/2024 8:25 AM EDT) Magnesium, Plasma 2.1 1.9 - 2.4 mg/dL 10/19/2024 9:12 AM EDT [facility] Blood Venous blood specimen / Unknown Venipuncture / Unknown 10/19/2024 8:25 AM EDT 10/19/2024 8:43 AM EDT Nirmal Cueto MD LAB BLOOD ORDERABLES Final Result Performing Organization Address [facility] Co de Phone Number [facility] [address] [place] [address] * (ABNORMAL) Basic metabolic panel (10/19/2024 8:25 [...] Final Result [facility] [address] [place] [address] * (ABNORMAL) CBC W/O Differential (10/19/2024 8:25 [...] Final Result [facility] [address] [place] [address] * (ABNORMAL) POCT glucose meter (10/19/2024 7:35 AM EDT) POCT Glucose 187(H) 74 - 99 mg/dL 10/19/2024 7:37 AM EDT [facility] Comment:Accuracy of a glucos e [...] Comment 10/19/2024 7:37 AM EDT HEALTHCARE LAB Corporate Licensed Broker ID Job Andrew 10/20/19 7:37 AM EDT HEALTHCARE LAB Device ID [id number] 10/19/2024 7:37 AM EDT HEALTHCARE LAB Specimen Type POC Capillary 10/19/2024 7:37 AM EDT HEALTH[facility]ARE LAB Blood Capillary blood specimen / Unknown 10/19/2024 7:35 AM EDT 10/19/2024 7:37 AM EDT us Terrell Gautam MD LAB POINT OF CARE TE ST DOCKED DEVICE UNSOLICITED RESULTS Final Result Performing Organization Address City/State/[facility] Co de Phone Number HEALTHCARE LAB [address] [place] [address] * (ABNORMAL) POCT glucose meter (10/18/2024 7:22 PM EDT) [facility] POCT Glucose 178(H) 74 - 99 [...] 10/18/2024 7:24 PM EDT HEALTHCARE LAB Corporate Licensed Broker ID Mahesh Aldana 10/18/2024 7:24 PM EDT HEALTHCARE LAB Device ID [id number] 10/18/2024 7:24 PM EDT HEALTHCARE LAB Specimen Type POC Capillary 10/18/2024 7:24 PM EDT [facility]ARE [facility] Blood Capillary blood specimen / Unknown 10/18/2024 7:22 PM EDT 10/18/2024 7:24 PM EDT us Terrell Gautam MD LAB POINT OF CARE TE ST DOCKED DEVICE UNSOLICITED RESULTS Final Result Performing Organization Address [facility] Co de Phone Number [facility] [address] [place] [address] * (ABNORMAL) POCT glucose meter (10/18/2024 6:07 [...] 10/18/2024 6:09 PM EDT HEALTHCARE LAB Corporate Licensed Broker ID David Parks Elaine 10/18/2024 6:09 PM EDT HEALTHCARE LAB Device ID [id number] 10/18/2024 6:09 PM EDT HEALTHCARE LAB Specimen Type POC Capillary 10/18/2024 6:09 PM EDT [facility] Blood Capillary blood specimen / Unknown 10/18/2024 6:07 PM EDT 10/18/2024 6:09 PM EDT Terrell Gautam MD LAB POINT OF CARE TE ST DOCKED DEVICE UNSOLICITED RESULTS Final Result Performing Organization Address [facility] Co de Phone Number [facility] [address] [place] [address] * (ABNORMAL) POCT glucose meter (10/18/2024 11:56 AM EDT) [facility] POCT Glucose 233(H) 74 - 99 [...] 7:42 AM EDT [facility] Corporate Licensed Broker ID Venessa Marcano 10/21/2024 7:42 AM EDT [facility] Device ID [id number] 10/21/2024 7:42 AM EDT HEALTHCARE LAB Specimen Type POC Capillary 10/21/2024 7:42 AM EDT [facility]ALTH[facility]ARE [facility] Blood Capillary blood specimen / Unknown 10/18/2024 11:56 AM EDT 10/21/2024 7:42 AM EDT us Terrell Gautam MD LAB POINT OF CARE TE ST DOCKED DEVICE UNSOLICITED RESULTS Final Result Performing Organization Address City/[facility] Co de Phone Number [facility] [address] [place] [address] * (ABNORMAL) POCT glucose meter (10/18/2024 9:24 [...] 7:42 AM EDT [facility] Corporate Licensed Broker ID Emilia Alonso 7:42 AM EDT [facility] Device ID [id number] 10/21/2024 7:42 AM EDT [facility] Specimen Type POC Venous 10/21/2024 7:42 AM EDT HEALTHCARE LAB Blood Venous blood specimen / Unknown 10/18/2024 9:24 AM EDT 10/21/2024 7:42 AM EDT us Terrell Gautam MD LAB POINT OF CARE TE ST DOCKED DEVICE UNSOLICITED RESULTS Final Result Performing Organization Address City/[facility] Co de Phone Number [facility] [address] [place] [address] * (ABNORMAL) POCT glucose meter (10/18/2024 7:36 [...] 10/18/2024 7:38 AM EDT HEALTHCARE LAB Corporate Licensed Broker ID Kizzy Godfrey 025 7:38 AM EDT HEALTHCARE LAB Device ID [id number] 10/18/2024 7:38 AM EDT [facility] Specimen Type POC Capillary 10/18/2024 7:38 AM EDT [facility] Blood Capillary blood specimen / Unknown 10/18/2024 7:36 AM EDT 10/18/2024 7:38 AM EDT us Terrell Gautam MD LAB POINT OF CARE TE ST DOCKED DEVICE UNSOLICITED RESULTS Final Result [facility] [address] [place] [address] * (ABNORMAL) CBC (10/18/2024 2:09 AM EDT) [facility] WBC Count 16.71(H) 3.70 - 10.30 [...] Final Result [facility] [address] [place] [address] * (ABNORMAL) Basic metabolic panel (10/18/2024 2:09 [...] ORDERABLES Final Result Performing Organization Address City/[facility]/ZIP Co de Phone Number [facility] [address] [place] [address] * (ABNORMAL) Magnesium (10/18/2024 2:09 AM EDT) Magnesium, Plasma 1.8(L) 1.9 - 2.4 mg/dL 10/18/2024 2:53 AM EDT [facility] Blood Venous blood specimen / Unknown Venipuncture / Unknown 10/18/2024 2:09 AM EDT 10/18/2024 2:25 AM EDT Nirmal Cueto MD LAB BLOOD ORDERABLES Final Result [facility] [address] [place] [address] * Phosphorus (10/18/2024 2:09 AM EDT) Phosphorus, Plasma 3.7 2.5 - 4.5 mg/dL 10/18/2024 2:53 AM EDT [facility] Blood Venous blood specimen / Unknown Venipuncture / Unknown 10/18/2024 2:09 AM EDT 10/18/2024 2:25 AM EDT Nirmal Cueto MD LAB BLOOD ORDERABLES Final Result Performing Organization Address [facility] Co de Phone Number [facility] [address] [place] [address] * (ABNORMAL) Protime-INR (10/18/2024 2:09 AM EDT) [...] INR 2.5 to 3.5 Prevention of recurrent CO INR 2.5 to 3.5 Result [facility] Nirmal Cueto MD LAB BLOOD ORDERABLES Final Result Performing Organization Address [facility] Co de Phone Number [facility] [address] [place] [address] * (ABNORMAL) POCT glucose meter (10/18/2024 2:08 AM EDT) POCT Glucose 202(H) 74 - 99 mg/dL 10/18/2024 2:10 AM EDT [facility] Comment:Accuracy of a glucos e [...] 10/18/2024 2:10 AM EDT HEALTHCARE LAB Corporate Licensed Broker ID Jourdan Grimes II 10/18/2024 2:10 AM EDT HEALTHCARE LAB Device ID [id number] 10/18/2024 2:10 AM EDT HEALTHCARE LAB Specimen Type POC Capillary 10/18/2024 2:10 AM EDT [facility]ALTH[facility]ARE LAB Blood Capillary blood specimen / Unknown 10/18/2024 2:08 AM EDT 10/18/2024 2:10 AM EDT us Terrell Gautam MD LAB POINT OF CARE TE ST DOCKED DEVICE UNSOLICITED RESULTS Final Result Performing Organization Address City/[facility] Co ms Phone Number HEALTHCARE LAB [address] [place] [address] * (ABNORMAL) POCT glucose meter (10/17/2024 10:07 PM EDT) [facility] POCT Glucose 300(H) 74 - 99 [...] 10/17/2024 10:10 PM EDT HEALTHCARE LAB Corporate Licensed Broker ID Jourdan Grimes II 10/17/2024 10:10 PM EDT HEALTHCARE LAB Device ID [id number] 10/17/2024 10:10 PM EDT HEALTHCARE LAB Specimen Type POC Capillary 10/17/2024 10:10 PM EDT [facility]ALTH[facility]ARE LAB Blood Capillary blood specimen / Unknown 10/17/2024 10:07 PM EDT 10/17/2024 10:10 PM EDT us Terrell Gautam MD LAB POINT OF CARE TE ST DOCKED DEVICE UNSOLICITED RESULTS Final Result [facility] [address] [place] [address] * (ABNORMAL) POCT glucose meter (10/17/2024 8:07 PM EDT) [facility] POCT Glucose 391(H) 74 - 99 [...] 10/17/2024 8:10 PM EDT HEALTHCARE LAB Corporate Licensed Broker ID Cornelio WALTERS Jourdan 10/17/2024 8:10 PM EDT HEALTHCARE LAB Device ID [id number] 10/17/2024 8:10 PM EDT [facility] Specimen Type POC Capillary 10/17/2024 8:10 PM EDT [facility] Blood Capillary blood specimen / Unknown 10/17/2024 8:07 PM EDT 10/17/2024 8:10 PM EDT Terrell Gautam MD LAB POINT OF CARE TE ST DOCKED DEVICE UNSOLICITED RESULTS Final Result Performing Organization Address [facility] de Phone Number [facility] [address] [place] [address] * (ABNORMAL) POCT glucose meter (10/17/2024 4:01 PM EDT) [facility] POCT Glucose 249(H) 74 - 99 [...] 4:03 PM EDT [facility] Corporate Licensed Broker ID Chelsieamanda Keisha 10/17/2024 4:03 PM EDT [facility] Device ID [id number] 10/17/2024 4:03 PM EDT [facility] Specimen Type POC Capillary 10/17/2024 4:03 PM EDT [facility] Blood Capillary blood specimen / Unknown 10/17/2024 4:01 PM EDT 10/17/2024 4:03 PM EDT us Terrell Gautam MD LAB POINT OF CARE TE ST DOCKED DEVICE UNSOLICITED RESULTS Final Result Performing Organization Address City/[facility] Co de Phone Number [facility] [address] [place] [address] * (ABNORMAL) POCT glucose meter (10/17/2024 1:25 PM EDT) [facility] POCT Glucose 225(H) 74 - 99 [...] 10/17/2024 1:27 PM EDT [facility] Corporate Licensed Broker ID Kizzy Godfrey 025 1:27 PM EDT [facility] Device ID [id number] 10/17/2024 1:27 PM EDT [facility] Specimen Type POC Capillary 10/17/2024 1:27 PM EDT [facility] Blood Capillary blood specimen / Unknown 10/17/2024 1:25 PM EDT 10/17/2024 1:27 PM EDT us Terrell Gautam MD LAB POINT OF CARE TE ST DOCKED DEVICE UNSOLICITED RESULTS Final Result Performing Organization Address City/[facility] Co de Phone Number [facility] [address] [place] [address] * [place] Less than 1 Hour Intraoperative [...] 10/29/2024 7:28 AM EDT [facility] Corporate Licensed Broker ID Donna Mcmillan 10/29/2024 7:28 AM EDT [facility] ACT Device ID [id number] 10/29/2024 7:28 AM EDT [facility] Comment 10/29/2024 7:28 AM [...] RESULTS Final Result Performing Organization Address City/[facility] Co de Phone Number [facility] [address] [facility] [address] [place] [address] * (ABNORMAL) Blood gas, arterial (10/17/2024 11:48 [...] 10/17/2024 11:53 AM EDT us Jenna Lopez [employer] [facility] BLOOD ORDERABLES Final Re sult [facility] [address] [place] [address] * POCT ACT (10/17/2024 11:41 AM EDT) ACT+ (HIGH RANGE) 175 68 - 600 Seconds 10/29/2024 7:28 AM EDT [facility] Corporate Licensed Broker ID Oneyda Alicea 10/29/2024 7:28 AM EDT [facility] ACT Device ID [id number] 10/29/2024 7:28 AM EDT [facility] Comment 10/29/2024 7:28 AM EDT [facility] Comment: ACT performed by staff at [...] RESULTS Final Result Performing Organization Address City/[facility] Co de Phone Number [facility] [address] [facility] [address] [place] [address] * POCT ACT (10/17/2024 11:11 AM EDT) ACT+ (HIGH RANGE) 252 68 - 600 Seconds 10/29/2024 7:28 AM EDT [facility] Corporate Licensed Broker ID Donna Mcmillan 10/29/2024 7:28 AM EDT [facility] ACT Device ID [id number] 10/29/2024 7:28 AM EDT [facility] Comment 10/29/2024 7:28 AM EDT [facility] Comment: ACT performed by staff at [...] RESULTS Final Result Performing Organization Address City/[facility]/ZIP Co de Phone Number [facility] [address] LAB [address] [place] [address] * (ABNORMAL) Blood gas, arterial (10/17/2024 10:46 [...] 10/17/2024 10:54 AM EDT us Jenna Lopez [employer] [facility] BLOOD ORDERABLES Final Re sult Performing Organization Address City/[facility]/ZIP Co de Phone Number [facility] [address] [place] [address] * POCT ACT (10/17/2024 10:37 AM EDT) ACT+ (HIGH RANGE) 206 68 - 600 Seconds 10/29/2024 7:28 AM EDT [facility] Corporate Licensed Broker ID Donna Mcmillan 10/29/2024 7:28 AM EDT [facility] ACT Device ID [id number] 10/29/2024 7:28 AM EDT [facility] Comment 10/29/2024 7:28 AM EDT [facility] Comment: ACT performed by staff at point [...] UNSOLICITED RESULTS Final Result Performing Organization Address [facility] Co de Phone Number [facility] [address] [place] [address] * Surgical Pathology Exam (10/17/2024 10:27 AM EDT) Case Report Surgical Pathology Case: [id number] Authorizing Provider: Terrell Gautam MD Collected: 10/17/2024 1027 Ordering Location: [facility] Received: 10/17/2024 1325 Pathologist: [...] cm. The specimen is serially sectioned and guest service representative sections are submitted in cassette A1. Cold Time: <1m Kenia C Yola 10/21/2024 10:16 AM EDT [facility] [...] grimaldo Result [facility] [address] [place] [id number] * POCT ACT (10/17/2024 10:03 AM EDT) ACT+ (HIGH RANGE) 244 68 - 600 Seconds 10/29/2024 7:28 AM EDT [facility] Corporate Licensed Broker ID Donna Mcmillan 10/29/2024 7:28 AM EDT [facility] ACT Device ID [id number] 10/29/2024 7:28 AM EDT [facility] Comment 10/29/2024 7:28 AM [...] ST DOCKED DEVICE UNSOLICITED RESULTS Final Result [facility] [address] [facility] [address] [place] [address] * (ABNORMAL) Blood gas, arterial (10/17/2024 9:45 [...] Re sult [facility] [address] [place] [address] * (ABNORMAL) Blood gas, arterial (10/17/2024 8:47 [...] Re sult [facility] [address] [place] [address] * POCT ACT (10/17/2024 8:46 AM EDT) ACT+ (HIGH RANGE) 101 68 - 600 Seconds 10/29/2024 7:28 AM EDT [facility] Corporate Licensed Broker ID Donna Mcmillan 10/29/2024 7:28 AM EDT [facility] ACT Device ID [id number] 10/29/2024 7:28 AM EDT [facility] Comment [...] RESULTS Final Result [facility] [address] [facility] [address] [place] [address] * Type and Screen (10/17/2024 7:19 AM [...] ORDERAB LES Final Result Performing Organization Address [facility] Co de Phone Number BLOOD BANK [address] [place] [address] * (ABNORMAL) POCT glucose meter (10/17/2024 6:44 AM EDT) [facility] POCT Glucose 178(H) 74 - 99 [...] 6:49 AM EDT [facility] Corporate Licensed Broker ID Hunter Burroughs 10/18/19 6:49 AM EDT [facility] Device ID [id number] 10/17/2024 6:49 AM EDT [facility] Specimen Type POC Capillary 10/17/2024 6:49 AM EDT [facility] Blood Capillary blood specimen / Unknown 10/17/2024 6:44 AM EDT 10/17/2024 6:49 AM EDT us Terrell Gautam MD LAB POINT OF CARE TE ST DOCKED DEVICE UNSOLICITED RESULTS Final Result [facility] [address] [place] [address] documented in this encounter Visit Diagnoses Diagnosis [...] CHRISTIAN) 0809 (Given - Provider: Emilia Alonso, CHRSITIAN) 0952 (Given - Provider: Keyla Chow) docusate [...] 10 mL, Intravenous, As needed, Starting on Yadiar 10/17/24 at 0653, Until 10/18/24 at 1510, [...] documented as of this encounter Care Teams Communications Technologist Relationship Specialty Start Date End Date Asad Victor MD [address] [place] [id number] PCP - General 10/07/22 documented as of this encounter
--- OUTSIDE RECORDS SUMMARY | 2024-11-05 21:45 | XMS_ITS | Encounter Summary ---
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 11/13/2024 6:51 AM EDT [facility] MCV 92 79 - 98 fL LAB HEMATOLOGY METHOD 11/13/2024 6:51 AM EDT [facility] MCH 29.5 26.0 - 32.0 pg LAB HEMATOLOGY METHOD 11/13/2024 6:51 AM EDT [facility] MCHC 32.2 30.7 - 35.5 g/dL LAB HEMATOLOGY METHOD 11/13/2024 6:51 AM EDT [facility] RDW 13.6 11.5 - 14.5 % LAB HEMATOLOGY METHOD 11/13/2024 6:51 AM EDT [facility] MPV 8.9 8.8 - 12.5 fL LAB HEMATOLOGY METHOD 11/13/2024 6:51 AM EDT [facility] nRBC 0.0 <=0.0 per 100 WBCs LAB HEMATOLOGY METHOD 11/13/2024 6:51 AM EDT [facility] Blood Venous blood specimen / Unknown Venipuncture / Unknown 11/13/2024 6:37 AM EDT 11/13/2024 6:44 AM EDT us Nathaly Nowak MD LAB BLOOD ORDERABLES Final Resu lt [facility] [address] [place] [address] * (ABNORMAL) Basic Metabolic Panel, Plasma (11/13/2024 6:37 AM EDT) Glucose, Plasma 200(H) 74 - 99 mg/dL 11/13/2024 7:16 AM EDT [facility] BUN, Plasma 10 8 - 23 mg/dL 11/13/2024 7:16 AM EDT [facility] Creatinine, Plasma 0.68(L) 0.70 - 1.20 mg/dL 11/13/2024 7:16 AM EDT [facility] BUN/Creatinine Ratio 15 11/13/2024 7:16 AM EDT [facility] Sodium, Plasma 135(L) 136 - 145 mmol/L 11/13/2024 7:16 AM EDT [facility] Potassium, Plasma 3.9 3.6 - 4.9 mmol/L 11/13/2024 7:16 AM EDT [facility] Chloride, Plasma 107 97 - 107 mmol/L 11/13/2024 7:16 AM EDT [facility] CO2, Plasma 21(L) 22 - 29 mmol/L 11/13/2024 7:16 AM EDT [facility] Anion Gap 7 6 - 16 mmol/L 11/13/2024 7:16 AM EDT [facility] Total Calcium, Plasma 8.1(L) 8.9 - 10.2 mg/dL 11/13/2024 7:16 AM EDT [facility] eGFRcr 103.2 mL/min/1.7 3m*2 11/13/2024 7:16 AM EDT [facility] Comment:Reported eGFRcr in m L/min/1.73m2 is based the CKD-EPI 2020 equation that does not use a race coefficient. Blood Venous blood specimen / Unknown Venipuncture / Unknown 11/13/2024 6:37 AM EDT 11/13/2024 6:44 AM EDT us Nathaly Nowak MD LAB BLOOD ORDERABLES Final Resu lt Performing Organization Address [facility] Co de Phone Number [facility] [address] [place] [address] * (ABNORMAL) POCT glucose meter (11/12/2024 8:27 PM EDT) POCT Glucose 175(H) 74 - 99 mg/dL 11/12/2024 8:29 PM EDT [facility] Comment:Accuracy of a glucos e result [...] Comment 11/12/2024 8:29 PM EDT HEALTHCARE [facility] Hammer Adjuster ID Nelda Gerber 11/13/19 8:29 PM EDT HEALTHCARE LAB Device ID [id number] 11/12/2024 8:29 PM EDT [facility]ALTH[facility]ARE LAB Specimen Type POC Capillary 11/12/2024 8:29 PM EDT [facility] Blood Capillary blood specimen / Unknown 11/12/2024 8:27 PM EDT 11/12/2024 8:29 PM EDT us Nathaly Nowak MD LAB POINT OF CARE TE ST DOCKED DEVICE UNSOLICITED RESULTS Final Result Performing Organization Address City/[facility] Co de Phone Number HEALTHCARE LAB [address] [place] [address] * (ABNORMAL) POCT glucose meter (11/12/2024 5:08 PM EDT) [facility] POCT Glucose 157(H) 74 - [...] 11/12/2024 5:10 PM EDT [facility] Hammer Adjuster ID Wade Feliciano 5:10 PM EDT [facility] Device ID [id number] 11/12/2024 5:10 PM EDT [facility] Specimen Type POC Capillary 11/12/2024 5:10 PM EDT [facility] Blood Capillary blood specimen / Unknown 11/12/2024 5:08 PM EDT 11/12/2024 5:10 PM EDT Nathaly Nowak MD LAB POINT OF CARE TE ST DOCKED DEVICE UNSOLICITED RESULTS Final Result Performing Organization Address City/State/[facility] Co de Phone Number HEALTHCARE LAB [address] [place] [address] * (ABNORMAL) POCT glucose meter (11/12/2024 12:36 PM EDT) [facility] POCT Glucose 224(H) 74 - [...] 11/12/2024 12:38 PM EDT [facility] Hammer Adjuster ID Wade Feliciano 12:38 PM EDT [facility] Device ID [id number] 11/12/2024 12:38 PM EDT [facility] Specimen Type POC Capillary 11/12/2024 12:38 PM EDT [facility] Blood Capillary blood specimen / Unknown 11/12/2024 12:36 PM EDT 11/12/2024 12:38 PM EDT Nathaly Nowak MD LAB POINT OF CARE TE ST DOCKED DEVICE UNSOLICITED RESULTS Final Result Performing Organization Address City/[facility]/ZIP Co de Phone Number [facility]ALTHCARE [facility] [address] [place] [address] * Clostridiodes (Clostridium) difficile PCR (11/12/2024 9:50 AM EDT) C difficile PCR toxin B gene DNA Result Not Detected Not Detected 11/12/2024 11:54 AM EDT [facility] Stool Rectum structure / Unknown Non-blood Collection / Unknown 11/12/2024 9:50 AM EDT 11/12/2024 10:04 AM EDT Narrative [facility] - 11/12/2024 11:54 AM [...] Nathaly Nowak MD LAB MICROBIOLOGY - [facility] Final Result [facility] [address] [place] [address] * Comprehensive GI Panel by PCR (11/12/2024 9:50 AM EDT) Campylobacter PCR Result Not Detected Not Detected 11/12/2024 2:47 PM EDT [facility] Plesiomonas shigelloides PCR Result Not Detected Not Detected 11/12/2024 2:47 PM EDT [facility] Salmonella PCR Result Not Detected Not Detected 11/12/2024 2:47 PM EDT [facility] Vibrio species PCR Result Not Detected Not Detected 11/12/2024 2:47 PM EDT [facility] Vibrio cholerae PCR Result Not Detected Not Detected 11/12/2024 2:47 PM EDT [facility] Yersinia enterocolitica PCR Result Not Detected Not Detected 11/12/2024 2:47 PM EDT [facility] Enteroaggregative E. coli (EAEC) PCR Result Not Detected Not Detected 11/12/2024 2:47 PM EDT [facility] Enteropathogenic E. coli (EPEC) PCR Result Not Detected Not Detected 11/12/2024 2:47 PM EDT [facility] Enterotoxigenic E. coli (ETEC) lt/st PCR Result Not Detected Not Detected 11/12/2024 2:47 PM EDT [facility] Shiga-like Toxin-Producing E.coli (STEC) stx1/stx2 PCR Resu Not Detected Not Detected 11/12/2024 2:47 PM EDT [facility] E coli 0157 PCR Result Not Detected Not Detected 11/12/2024 2:47 PM EDT [facility] Shigella/Enteroinvas tam E. coli (EIEC) PCR Result Not Detected Not Detected 11/12/2024 2:47 PM EDT [facility] Cryptosporidium PCR Result Not Detected Not Detected 11/12/2024 2:47 PM EDT [facility] Cyclospora cayetanensis PCR Result Not Detected Not Detected 11/12/2024 2:47 PM EDT [facility] Entamoeba histolytica PCR Result Not Detected Not Detected 11/12/2024 2:47 PM EDT [facility] Giardia duodenalis (aka Giardia lamblia) PCR Result Not Detected Not Detected 11/12/2024 2:47 PM EDT [facility] Adenovirus F 40/41 PCR Result Not Detected Not Detected 11/12/2024 2:47 PM EDT [facility] Astrovirus PCR Result Not Detected Not Detected 11/12/2024 2:47 PM EDT [facility] Norovirus GI/GII PCR Result Not Detected Not Detected 11/12/2024 2:47 PM EDT [facility] Rotavirus A PCR Result Not Detected Not Detected 11/12/2024 2:47 PM EDT [facility] Sapovirus PCR Result Not Detected Not Detected 11/12/2024 2:47 PM EDT [facility] Stool Rectum structure / Unknown Non-blood Collection / Unknown 11/12/2024 9:50 AM EDT 11/12/2024 10:04 AM EDT Narrative [facility] - 11/12/2024 2:47 PM [...] difficile by PCR assay if clinically indicated. us Nathaly Nowak MD LAB MICROBIOLOGY - [facility] Final Result Performing Organization Address City/[facility]/ZIP Co de Phone Number [facility] [address] [place] [address] * C-reactive protein (11/12/2024 9:48 AM EDT) CRP, Plasma <3.0 <=8.0 mg/L 11/12/2024 10:28 AM EDT [facility] Blood Venous blood specimen / Unknown Venipuncture / Unknown 11/12/2024 9:48 AM EDT 11/12/2024 9:59 AM EDT Narrative [facility] - 11/12/2024 10:28 AM EDT This CRP test is appropriate for assessment of infection, systemic inflammation and/or tissue injury. To assess cardiovascular disease risk order high sensitivity CRP (CRPH). us Nathaly Nowak MD LAB BLOOD ORDERABLES Final Resu lt [facility] [address] [place] [address] * (ABNORMAL) POCT glucose meter (11/12/2024 8:20 AM EDT) [facility] POCT Glucose 138(H) 74 - [...] Comment 11/12/2024 8:21 AM EDT [facility]ALTHCARE [facility] Hammer Adjuster ID Wade Feliciano 8:21 AM EDT [facility] Device ID [id number] 11/12/2024 8:21 AM EDT HEALTHCARE LAB Specimen Type POC Capillary 11/12/2024 8:21 AM EDT [facility] Blood Capillary blood specimen / Unknown 11/12/2024 8:20 AM EDT 11/12/2024 8:21 AM EDT Nathaly Nowak MD LAB POINT OF CARE TE ST DOCKED DEVICE UNSOLICITED RESULTS Final Result [facility] [address] [place] [address] * (ABNORMAL) POCT glucose meter (11/11/2024 8:18 PM EDT) [facility] POCT Glucose 248(H) 74 - [...] 11/11/2024 8:20 PM EDT [facility] Hammer Adjuster ID Nelda Gerber 11/12/19 8:20 PM EDT [facility] Device ID [id number] 11/11/2024 8:20 PM EDT HEALTHCARE LAB Specimen Type POC Capillary 11/11/2024 8:20 PM EDT [facility] Blood Capillary blood specimen / Unknown 11/11/2024 8:18 PM EDT 11/11/2024 8:20 PM EDT Nathaly Nowak MD LAB POINT OF CARE TE ST DOCKED DEVICE UNSOLICITED RESULTS Final Result Performing Organization Address City/[facility] Co de Phone Number [facility] [address] [place] [address] * (ABNORMAL) POCT glucose meter (11/11/2024 5:59 [...] 11/11/2024 6:01 PM EDT [facility] Hammer Adjuster ID Wade Feliciano Tobias 6:01 PM EDT HEALTHCARE LAB Device ID [id number] 11/11/2024 6:01 PM EDT HEALTH[facility]ARE LAB Specimen Type POC Capillary 11/11/2024 6:01 PM EDT [facility] Blood Capillary blood specimen / Unknown 11/11/2024 5:59 PM EDT 11/11/2024 6:01 PM EDT us Nathaly Nowak MD LAB POINT OF CARE TE ST DOCKED DEVICE UNSOLICITED RESULTS Final Result Performing Organization Address City/[facility] Co de Phone Number HEALTHCARE LAB [address] [place] [address] * POCT glucose meter (11/11/2024 5:20 PM [...] Comment 11/11/2024 5:22 PM EDT [facility]ALTH[facility]ARE [facility] Hammer Adjuster ID Wade Feliciano 5:22 PM EDT HEALTHCARE LAB Device ID [id number] 11/11/2024 5:22 PM EDT HEALTH[facility]ARE LAB Specimen Type POC Capillary 11/11/2024 5:22 PM EDT [facility] Blood Capillary blood specimen / Unknown 11/11/2024 5:20 PM EDT 11/11/2024 5:22 PM EDT us Nathaly Nowak MD LAB POINT OF CARE TE ST DOCKED DEVICE UNSOLICITED RESULTS Final Result Performing Organization Address City/State/[facility] Co de Phone Number HEALTHCARE LAB [address] [place] [address] * DE NEGATIVE PRESSURE WOUND THERAPY DME >50 SQ [...] POCT glucose meter (11/11/2024 12:08 PM EDT) [facility] POCT Glucose 226(H) 74 - 99 mg/dL [...] Comment 11/11/2024 12:10 PM EDT [facility]ALTHCARE [facility] Hammer Adjuster ID Wade Feliciano 12:10 PM EDT HEALTHCARE LAB Device ID [id number] 11/11/2024 12:10 PM EDT [facility]ALTH[facility]ARE LAB Specimen Type POC Capillary 11/11/2024 12:10 PM EDT [facility] Blood Capillary blood specimen / Unknown 11/11/2024 12:08 PM EDT 11/11/2024 12:10 PM EDT us Nathaly Nowak MD LAB POINT OF CARE TE ST DOCKED DEVICE UNSOLICITED RESULTS Final Result Performing Organization Address City/State/[facility] Co de Phone Number HEALTHCARE LAB [address] [place] [address] * (ABNORMAL) POCT glucose meter (11/11/2024 9:08 AM EDT) [facility] POCT Glucose 162(H) 74 - 99 mg/dL [...] 11/11/2024 9:09 AM EDT [facility] Hammer Adjuster ID Wade Feliciano 9:09 AM EDT HEALTHCARE LAB Device ID [id number] 11/11/2024 9:09 AM EDT HEALTHCARE LAB Specimen Type POC Capillary 11/11/2024 9:09 AM EDT [facility] Blood Capillary blood specimen / Unknown 11/11/2024 9:08 AM EDT 11/11/2024 9:09 AM EDT Nathaly Nowak MD LAB POINT OF CARE TE ST DOCKED DEVICE UNSOLICITED RESULTS Final Result Performing Organization Address [facility] Co de Phone Number [facility] [address] [place] [address] * POCT glucose meter (11/11/2024 8:27 AM [...] Comment 11/11/2024 8:28 AM EDT HEALTHCARE LAB Hammer Adjuster ID Wade Feliciano 8:28 AM EDT HEALTHCARE LAB Device ID [id number] 11/11/2024 8:28 AM EDT [facility] Specimen Type POC Capillary 11/11/2024 8:28 AM EDT [facility] Blood Capillary blood specimen / Unknown 11/11/2024 8:27 AM EDT 11/11/2024 8:28 AM EDT Nathaly Nowak MD LAB POINT OF CARE TE ST DOCKED DEVICE UNSOLICITED RESULTS Final Result Performing Organization Address City/[facility] Co de Phone Number HEALTHCARE LAB [address] [place] [address] * (ABNORMAL) Basic Metabolic Panel, Plasma (11/11/2024 1:12 AM EDT) Glucose, Plasma 122(H) 74 - 99 mg/dL 11/11/2024 1:12 AM EDT [facility] BUN, Plasma 10 8 - 23 mg/dL 11/11/2024 1:12 AM EDT [facility] Creatinine, Plasma 0.82 0.70 - 1.20 mg/dL 11/11/2024 1:12 AM EDT [facility] BUN/Creatinine Ratio 12 11/11/2024 1:12 AM EDT [facility] Sodium, Plasma 137 136 - 145 mmol/L 11/11/2024 1:12 AM EDT [facility] Potassium, Plasma 3.9 3.6 - 4.9 mmol/L 11/11/2024 1:12 AM EDT [facility] Chloride, Plasma 110(H) 97 - 107 mmol/L 11/11/2024 1:12 AM EDT [facility] CO2, Plasma 20(L) 22 - 29 mmol/L 11/11/2024 1:12 AM EDT [facility] Anion Gap 7 6 - 16 mmol/L 11/11/2024 1:12 AM EDT [facility] Total Calcium, Plasma 7.6(L) 8.9 - 10.2 mg/dL 11/11/2024 1:12 AM EDT [facility] eGFRcr 97.5 mL/min/1.7 3m*2 11/11/2024 1:12 AM EDT [facility] Comment:Reported eGFRcr in m L/min/1.73m2 is based the CKD-EPI 2020 equation that does not use a race coefficient. Blood Venous blood specimen / Unknown 11/11/2024 12:42 AM EDT us Nathaly Nowak MD LAB BLOOD ORDERABLES Final Resu lt [facility] [address] [place] [address] * (ABNORMAL) CBC W/O Differential (11/11/2024 12:56 AM EDT) WBC Count 11.83(H) 3.70 - 10.30 10*3/uL LAB HEMATOLOGY METHOD 11/11/2024 12:56 AM EDT [facility] RBC Count 2.97(L) 4.60 - 6.10 10*6/uL LAB HEMATOLOGY METHOD 11/11/2024 12:56 AM EDT [facility] HGB 8.9(L) 13.7 - 17.5 g/dL LAB HEMATOLOGY METHOD 11/11/2024 12:56 AM EDT [facility] HCT 27.2(L) 40.0 - 51.0 % LAB HEMATOLOGY METHOD 11/11/2024 12:56 AM EDT [facility] Platelet Count 444(H) 155 - 369 10*3/uL LAB HEMATOLOGY METHOD 11/11/2024 12:56 AM EDT [facility] MCV 92 79 - 98 fL LAB HEMATOLOGY METHOD 11/11/2024 12:56 AM EDT [facility] MCH 30.0 26.0 - 32.0 pg LAB HEMATOLOGY METHOD 11/11/2024 12:56 AM EDT [facility] MCHC 32.7 30.7 - 35.5 g/dL LAB HEMATOLOGY METHOD 11/11/2024 12:56 AM EDT [facility] RDW 13.3 11.5 - 14.5 % LAB HEMATOLOGY METHOD 11/11/2024 12:56 AM EDT [facility] MPV 9.0 8.8 - 12.5 fL LAB HEMATOLOGY METHOD 11/11/2024 12:56 AM EDT [facility] nRBC 0.0 <=0.0 per 100 WBCs LAB HEMATOLOGY METHOD 11/11/2024 12:56 AM EDT [facility] Blood Venous blood specimen / Unknown 11/11/2024 12:42 AM EDT us Nathaly Nowak MD LAB BLOOD ORDERABLES Final Resu lt [facility] [address] [place] [address] * (ABNORMAL) POCT glucose meter (11/10/2024 8:25 PM EDT) POCT Glucose 144(H) 74 - 99 mg/dL 11/10/2024 8:28 PM EDT [facility] Comment:Accuracy of a glucos e [...] 11/10/2024 8:28 PM EDT [facility] Hammer Adjuster ID Nelda Gerber 11/11/19 8:28 PM EDT [facility] Device ID [id number] 11/10/2024 8:28 PM EDT [facility] Specimen Type POC Capillary 11/10/2024 8:28 PM EDT [facility] Blood Capillary blood specimen / Unknown 11/10/2024 8:25 PM EDT 11/10/2024 8:28 PM EDT us Nathaly Nowak MD LAB POINT OF CARE TE ST DOCKED DEVICE UNSOLICITED RESULTS Final Result Performing Organization Address [facility] de Phone Number HEALTHCARE LAB [address] [place] [address] * (ABNORMAL) POCT glucose meter (11/10/2024 4:45 PM EDT) [facility] Signature POCT Glucose 155(H) 74 - 99 mg/dL [...] 11/10/2024 4:47 PM EDT [facility] Hammer Adjuster ID Esperanza Parks 11/10/2024 4:47 PM EDT HEALTHCARE LAB Device ID [id number] 11/10/2024 4:47 PM EDT HEALTHCARE LAB Specimen Type POC Capillary 11/10/2024 4:47 PM EDT [facility] Blood Capillary blood specimen / Unknown 11/10/2024 4:45 PM EDT 11/10/2024 4:47 PM EDT us Nathaly Nowak MD LAB POINT OF CARE TE ST DOCKED DEVICE UNSOLICITED RESULTS Final Result Performing Organization Address City/[facility] Co de Phone Number [facility] [address] [place] [address] * (ABNORMAL) POCT glucose meter (11/10/2024 12:13 [...] Comment 11/10/2024 12:14 PM EDT HEALTHCARE LAB Hammer Adjuster ID Esperanza Parks 11/10/2024 12:14 PM EDT HEALTHCARE LAB Device ID [id number] 11/10/2024 12:14 PM EDT HEALTHCARE LAB Specimen Type POC Capillary 11/10/2024 12:14 PM EDT [facility] Blood Capillary blood specimen / Unknown 11/10/2024 12:13 PM EDT 11/10/2024 12:14 PM EDT us Nathaly Nowak MD LAB POINT OF CARE TE ST DOCKED DEVICE UNSOLICITED RESULTS Final Result [facility] [address] [place] [address] * Vancomycin, Peak, Plasma Please draw ~2 hours after 0800 dose of vancomycin finishes infusing. Consider obtaining level via peripheral stick. If peripheral stick is not feasible, please ensure that line is flushed well prior to drawing level. Than... (11/10/2024 10:56 AM EDT) Pathologist [facility] Vancomycin, Peak, Plasma 23.8 20.0 - 40.0 ug/mL 11/10/2024 11:25 AM EDT [facility] Blood Venous blood specimen / Unknown Venipuncture / Unknown 11/10/2024 10:56 AM EDT 11/10/2024 11:00 AM EDT Narrative [facility] - 11/10/2024 11:25 AM EDT Therapeutic Peak level: 20-40ug/mL Supra-therapeutic Peak level: >40 ug/mL us Abigail Seay MD LAB BLOOD ORDERABLES Final Res ult [facility] [address] [place] [address] * (ABNORMAL) POCT glucose meter (11/10/2024 8:03 [...] Comment 11/10/2024 8:04 AM EDT HEALTHCARE LAB Hammer Adjuster ID Esperanza Parks 11/10/2024 8:04 AM EDT [facility] Device ID [id number] 11/10/2024 8:04 AM EDT [facility] Specimen Type POC Capillary 11/10/2024 8:04 AM EDT [facility] Blood Capillary blood specimen / Unknown 11/10/2024 8:03 AM EDT 11/10/2024 8:04 AM EDT us Nathaly Nowak MD LAB POINT OF CARE TE ST DOCKED DEVICE UNSOLICITED RESULTS Final Result Performing Organization Address City/[facility]/ZIP Co de Phone Number [facility] [address] [place] [address] * Vancomycin, Trough, Plasma Please draw ~30 minutes prior to dose due at 0800 on 11/10. Please do NOThold dose awaiting level to return. Consider obtaining level via peripheral stick. If peripheral stick is not feasible, please ensure that line is... (11/10/2024 7:27 AM EDT) Vancomycin, Trough, Plasma 16.2 10.0 - 20.0 ug/mL 11/10/2024 8:24 AM EDT [facility] Blood Venous blood specimen / Unknown Venipuncture / Unknown 11/10/2024 7:27 AM EDT 11/10/2024 7:51 AM EDT Narrative [facility] - 11/10/2024 8:24 AM EDT Therapeutic Trough level: 10-20ug/mL Supra-therapeutic Trough level: >20 ug/mL us Abigail Seay MD LAB BLOOD ORDERABLES Final Res ult [facility] [address] [place] [address] * (ABNORMAL) CBC and Differential (11/10/2024 12:31 AM EDT) WBC Count 10.80(H) 3.70 - 10.30 10*3/uL LAB HEMATOLOGY METHOD 11/10/2024 12:53 AM EDT [facility] RBC Count 3.06(L) 4.60 - 6.10 10*6/uL LAB HEMATOLOGY METHOD 11/10/2024 12:53 AM EDT [facility] HGB 9.1(L) 13.7 - 17.5 g/dL LAB HEMATOLOGY METHOD 11/10/2024 12:53 AM EDT [facility] [facility] HCT 28.0(L) 40.0 - 51.0 % LAB HEMATOLOGY METHOD 11/10/2024 12:53 AM EDT [facility] Platelet Count 501(H) 155 - 369 10*3/uL LAB HEMATOLOGY METHOD 11/10/2024 12:53 AM EDT [facility] MCV 92 79 - 98 fL LAB HEMATOLOGY METHOD 11/10/2024 12:53 AM EDT [facility] MCH 29.7 26.0 - 32.0 pg LAB HEMATOLOGY METHOD 11/10/2024 12:53 AM EDT [facility] MCHC 32.5 30.7 - 35.5 g/dL LAB HEMATOLOGY METHOD 11/10/2024 12:53 AM EDT [facility] RDW 13.2 11.5 - 14.5 % LAB HEMATOLOGY METHOD 11/10/2024 12:53 AM EDT [facility] MPV 8.8 8.8 - 12.5 fL LAB HEMATOLOGY METHOD 11/10/2024 12:53 AM EDT [facility] nRBC 0.0 <=0.0 per 100 WBCs LAB HEMATOLOGY METHOD 11/10/2024 12:53 AM EDT [facility] Differential Type Automated LAB HEMATOLOGY METHOD 11/10/2024 12:53 AM EDT [facility] Neutrophils % 77 % LAB HEMATOLOGY METHOD 11/10/2024 12:53 AM EDT [facility] Lymphocytes % 13 % LAB HEMATOLOGY METHOD 11/10/2024 12:53 AM EDT [facility] Monocytes % 8 % LAB HEMATOLOGY METHOD 11/10/2024 12:53 AM EDT [facility] Eosinophils % 1 % LAB HEMATOLOGY METHOD 11/10/2024 12:53 AM EDT [facility] Basophils % 0 % LAB HEMATOLOGY METHOD 11/10/2024 12:53 AM EDT [facility] Immature Granulocytes % 1 % LAB HEMATOLOGY METHOD 11/10/2024 12:53 AM EDT [facility] Neutrophils Absolute 8.32(H) 1.60 - 6.10 10*3/uL LAB HEMATOLOGY METHOD 11/10/2024 12:53 AM EDT [facility] Lymphocytes Absolute 1.40 1.20 - 3.90 10*3/uL LAB HEMATOLOGY METHOD 11/10/2024 12:53 AM EDT [facility] Monocytes Absolute 0.89 0.30 - 0.90 10*3/uL LAB HEMATOLOGY METHOD 11/10/2024 12:53 AM EDT [facility] Eosinophils Absolute 0.09 0.00 - 0.50 10*3/uL LAB HEMATOLOGY METHOD 11/10/2024 12:53 AM EDT [facility] Basophils Absolute 0.04 0.00 - 0.10 10*3/uL LAB HEMATOLOGY METHOD 11/10/2024 12:53 AM EDT [facility] Immature Granulocytes Absolute 0.06 0.00 - 0.06 10*3/uL LAB HEMATOLOGY METHOD 11/10/2024 12:53 AM EDT [facility] Blood Venous blood specimen / Unknown Venipuncture / Unknown 11/10/2024 12:31 AM EDT 11/10/2024 12:37 [facility] 11/10/[facility]24 12:53 AM EDT Therapeutic decision making should be based on absolute values, rather than percentages. us Nathaly Nowak MD LAB BLOOD ORDERABLES Final Resu lt [facility] [address] [place] [address] * (ABNORMAL) Comprehensive Metabolic Panel, Plasma (11/10/2024 12:31 AM EDT) Glucose, Plasma 185(H) 74 - 99 mg/dL 11/10/2024 1:05 AM EDT [facility] BUN, Plasma 9 8 - 23 mg/dL 11/10/2024 1:05 AM EDT [facility] Creatinine, Plasma 0.72 0.70 - 1.20 mg/dL 11/10/2024 1:05 AM EDT [facility] BUN/Creatinine Ratio 13 11/10/2024 1:05 AM EDT [facility] Sodium, Plasma 135(L) 136 - 145 mmol/L 11/10/2024 1:05 AM EDT [facility] Potassium, Plasma 4.0 3.6 - 4.9 mmol/L 11/10/2024 1:05 AM EDT [facility] Chloride, Plasma 106 97 - 107 mmol/L 11/10/2024 1:05 AM EDT [facility] CO2, Plasma 19(L) 22 - 29 mmol/L 11/10/2024 1:05 AM EDT [facility] Anion Gap 10 6 - 16 mmol/L 11/10/2024 1:05 AM EDT [facility] Total Calcium, Plasma 7.8(L) 8.9 - 10.2 mg/dL 11/10/2024 1:05 AM EDT [facility] Total Protein 5.6(L) 6.3 - 7.9 g/dL 11/10/2024 1:05 AM EDT [facility] Albumin, Plasma 3.1(L) 3.5 - 5.2 g/dL 11/10/2024 1:05 AM EDT [facility] AST, Plasma 33 10 - 50 U/L 11/10/2024 1:05 AM EDT [facility] ALT, Plasma 25 10 - 50 U/L 11/10/2024 1:05 AM EDT [facility] Alkaline Phosphatase, Plasma 108 40 - 115 U/L 11/10/2024 1:05 AM EDT [facility] Total Bilirubin, Plasma <0.2(L) 0.2 - 1.1 mg/dL 11/10/2024 1:05 AM EDT [facility] eGFRcr 101.4 mL/min/1.7 3m*2 11/10/2024 1:05 AM EDT [facility] Comment:Reported eGFRcr in m L/min/1.73m2 is based the CKD-EPI 2020 equation that does not use a race coefficient. Blood Venous blood specimen / Unknown Venipuncture / Unknown 11/10/2024 12:31 AM EDT 11/10/2024 12:37 AM EDT us Nathaly Nowak MD LAB BLOOD ORDERABLES Final Resu lt [facility] [address] [place] [address] * (ABNORMAL) POCT glucose meter (11/09/2024 8:04 [...] Comment 11/09/2024 8:06 PM EDT [facility] Hammer Adjuster ID Maximiliano Hansen II 11/09/2024 8:06 PM EDT [facility] Device ID [id number] 11/09/2024 8:06 PM EDT [facility] Specimen Type POC Capillary 11/09/2024 8:06 PM EDT [facility] Blood Capillary blood specimen / Unknown 11/09/2024 8:04 PM EDT 11/09/2024 8:06 PM EDT Nathaly Nowak MD LAB POINT OF CARE TE ST DOCKED DEVICE UNSOLICITED RESULTS Final Result Performing Organization Address [facility] de Phone Number [facility] [address] [place] [address] * (ABNORMAL) POCT glucose meter (11/09/2024 4:36 [...] Comment 11/09/2024 4:38 PM EDT [facility] Hammer Adjuster ID Kristian Sosa 11/09/2024 4:38 PM EDT [facility] Device ID [id number] 11/09/2024 4:38 PM EDT [facility] Specimen Type POC Capillary 11/09/2024 4:38 PM EDT [facility] Blood Capillary blood specimen / Unknown 11/09/2024 4:36 PM EDT 11/09/2024 4:38 PM EDT us Nathaly Nowak MD LAB POINT OF CARE TE ST DOCKED DEVICE UNSOLICITED RESULTS Final Result Performing Organization Address City/[facility] Co de Phone Number [facility] [address] [place] [address] * PICC SINGLE LUMEN ([employer]) (11/09/2024 1:11 PM EDT) Narrative Estefani Barraza RN - 11/09/2024 1:11 PM EDT Estefani Barraza RN 11/09/2024 1:12 PM Insert PICC line Date/Time: 11/09/2024 1:11 PM Performed by: Estefani Barraza RN Authorized by: Nathaly Nowak MD [facility] Protocol: Verbal consent obtained?: Yes Written consent [...] selection rationale: Left pacemaker Catheter Lot #: [id number] Catheter outpatient physical therapist: Boomi Catheter placed: Single lumen Catheter size: 4 [...] - 99 mg/dL 11/09/2024 11:51 AM EDT [facility] Comment:Accuracy of a glucos e result [...] 11/09/2024 11:51 AM EDT [facility] Hammer Adjuster Kristian Greco 11/09/2024 11:51 AM EDT [facility] Device ID [id number] 11/09/2024 11:51 AM EDT [facility] Specimen Type POC Capillary 11/09/2024 11:51 AM EDT [facility] Blood Capillary blood specimen / Unknown 11/09/2024 11:50 AM EDT 11/09/2024 11:51 AM EDT Nathaly Nowak MD LAB POINT OF CARE TE ST DOCKED DEVICE UNSOLICITED RESULTS Final Result Performing Organization Address City/[facility]/ZIP Co de Phone Number [facility] [address] [place] [address] * (ABNORMAL) POCT glucose meter (11/09/2024 8:14 AM EDT) [facility] POCT Glucose 153(H) 74 - 99 mg/dL [...] Comment 11/09/2024 8:15 AM EDT [facility] Hammer Adjuster ID Kristian Sosa 11/09/2024 8:15 AM EDT [facility] Device ID [id number] 11/09/2024 8:15 AM EDT [facility] Specimen Type POC Capillary 11/09/2024 8:15 AM EDT [facility] Blood Capillary blood specimen / Unknown 11/09/2024 8:14 AM EDT 11/09/2024 8:15 AM EDT us Nathaly Nowak MD LAB POINT OF CARE TE ST DOCKED DEVICE UNSOLICITED RESULTS Final Result Performing Organization Address City/[facility]/ZIP Co de Phone Number [facility] [address] [place] [address] * (ABNORMAL) CBC and Differential (11/09/2024 4:15 AM EDT) [facility] WBC Count 10.27 3.70 - 10.30 10*3/uL LAB HEMATOLOGY METHOD 11/09/2024 4:26 AM EDT [facility] RBC Count 3.14(L) 4.60 - 6.10 10*6/uL LAB HEMATOLOGY METHOD 11/09/2024 4:26 AM EDT [facility] HGB 9.2(L) 13.7 - 17.5 g/dL LAB HEMATOLOGY METHOD 11/09/2024 4:26 AM EDT [facility] HCT 28.3(L) 40.0 - 51.0 % LAB HEMATOLOGY METHOD 11/09/2024 4:26 AM EDT [facility] Platelet Count 468(H) 155 - 369 10*3/uL LAB HEMATOLOGY METHOD 11/09/2024 4:26 AM EDT [facility] MCV 90 79 - 98 fL LAB HEMATOLOGY METHOD 11/09/2024 4:26 AM EDT [facility] MCH 29.3 26.0 - 32.0 pg LAB HEMATOLOGY METHOD 11/09/2024 4:26 AM EDT [facility] MCHC 32.5 30.7 - 35.5 g/dL LAB HEMATOLOGY METHOD 11/09/2024 4:26 AM EDT [facility] RDW 13.1 11.5 - 14.5 % LAB HEMATOLOGY METHOD 11/09/2024 4:26 AM EDT [facility] MPV 8.7(L) 8.8 - 12.5 fL LAB HEMATOLOGY METHOD 11/09/2024 4:26 AM EDT [facility] nRBC 0.0 <=0.0 per 100 WBCs LAB HEMATOLOGY METHOD 11/09/2024 4:26 AM EDT [facility] Differential Type Automated LAB HEMATOLOGY METHOD 11/09/2024 4:26 AM EDT [facility] Neutrophils % 77 % LAB HEMATOLOGY METHOD 11/09/2024 4:26 AM EDT [facility] Lymphocytes % 13 % LAB HEMATOLOGY METHOD 11/09/2024 4:26 AM EDT [facility] Monocytes % 8 % LAB HEMATOLOGY METHOD 11/09/2024 4:26 AM EDT [facility] Eosinophils % 1 % LAB HEMATOLOGY METHOD 11/09/2024 4:26 AM EDT [facility] Basophils % 0 % LAB HEMATOLOGY METHOD 11/09/2024 4:26 AM EDT [facility] Immature Granulocytes % 1 % LAB HEMATOLOGY METHOD 11/09/2024 4:26 AM EDT [facility] Neutrophils Absolute 7.97(H) 1.60 - 6.10 10*3/uL LAB HEMATOLOGY METHOD 11/09/2024 4:26 AM EDT [facility] Lymphocytes Absolute 1.32 1.20 - 3.90 10*3/uL LAB HEMATOLOGY METHOD 11/09/2024 4:26 AM EDT [facility] Monocytes Absolute 0.83 0.30 - 0.90 10*3/uL LAB HEMATOLOGY METHOD 11/09/2024 4:26 AM EDT [facility] Eosinophils Absolute 0.07 0.00 - 0.50 10*3/uL LAB HEMATOLOGY METHOD 11/09/2024 4:26 AM EDT [facility] Basophils Absolute 0.03 0.00 - 0.10 10*3/uL LAB HEMATOLOGY METHOD 11/09/2024 4:26 AM EDT [facility] Immature Granulocytes Absolute 0.05 0.00 - 0.06 10*3/uL LAB HEMATOLOGY METHOD 11/09/2024 4:26 AM EDT [facility] Blood Venous blood specimen / Unknown Venipuncture / Unknown 11/09/2024 4:15 AM EDT 11/09/2024 4:18 AM EDT Narrative [facility] - 11/09/2024 4:26 AM EDT Therapeutic decision making should be based on absolute values, rather than percentages. us Nathaly Nowak MD LAB BLOOD ORDERABLES Final Resu lt [facility] [address] [place] [address] * (ABNORMAL) Comprehensive Metabolic Panel, Plasma (11/09/2024 4:15 AM EDT) Glucose, Plasma 171(H) 74 - 99 mg/dL 11/09/2024 4:47 AM EDT [facility] BUN, Plasma 9 8 - 23 mg/dL 11/09/2024 4:47 AM EDT [facility] Creatinine, Plasma 0.67(L) 0.70 - 1.20 mg/dL 11/09/2024 4:47 AM EDT [facility] BUN/Creatinine Ratio 13 11/09/2024 4:47 AM EDT [facility] Sodium, Plasma 134(L) 136 - 145 mmol/L 11/09/2024 4:47 AM EDT [facility] Potassium, Plasma 4.1 3.6 - 4.9 mmol/L 11/09/2024 4:47 AM EDT [facility] Chloride, Plasma 104 97 - 107 mmol/L 11/09/2024 4:47 AM EDT [facility] CO2, Plasma 21(L) 22 - 29 mmol/L 11/09/2024 4:47 AM EDT [facility] Anion Gap 9 6 - 16 mmol/L 11/09/2024 4:47 AM EDT [facility] Total Calcium, Plasma 8.4(L) 8.9 - 10.2 mg/dL 11/09/2024 4:47 AM EDT [facility] Total Protein 5.8(L) 6.3 - 7.9 g/dL 11/09/2024 4:47 AM EDT [facility] Albumin, Plasma 3.2(L) 3.5 - 5.2 g/dL 11/09/2024 4:47 AM EDT [facility] AST, Plasma 18 10 - 50 U/L 11/09/2024 4:47 AM EDT [facility] ALT, Plasma 17 10 - 50 U/L 11/09/2024 4:47 AM EDT [facility] Alkaline Phosphatase, Plasma 110 40 - 115 U/L 11/09/2024 4:47 AM EDT [facility] Total Bilirubin, Plasma <0.2(L) 0.2 - 1.1 mg/dL 11/09/2024 4:47 AM EDT [facility] eGFRcr 103.6 mL/min/1.7 3m*2 11/09/2024 4:47 AM EDT [facility] Comment:Reported eGFRcr in m L/min/1.73m2 is based the CKD-EPI 2020 equation that does not use a race coefficient. Blood Venous blood specimen / Unknown Venipuncture / Unknown 11/09/2024 4:15 AM EDT 11/09/2024 4:18 AM EDT Nathaly Nowak MD LAB BLOOD ORDERABLES Final Resu lt Performing Organization Address City/[facility] Co de Phone Number [facility] [address] [place] [address] * (ABNORMAL) POCT glucose meter (11/09/2024 3:30 [...] for testing. Comment 11/09/2024 3:31 AM EDT [facility] Hammer Adjuster ID Maximiliano Hansen II 11/09/2024 3:31 AM EDT HEALTH[facility]ARE LAB Device ID [id number] 11/09/2024 3:31 AM EDT [facility] Specimen Type POC Capillary 11/09/2024 3:31 AM EDT [facility] Blood Capillary blood specimen / Unknown 11/09/2024 3:30 AM EDT 11/09/2024 3:31 AM EDT Nathaly Nowak MD LAB POINT OF CARE TE ST DOCKED DEVICE UNSOLICITED RESULTS Final Result Performing Organization Address City/[facility]/ZIP Co de Phone Number [facility] [address] [place] [address] * (ABNORMAL) POCT glucose meter (11/08/2024 7:21 [...] Comment 11/08/2024 7:22 PM EDT [facility] Hammer Adjuster ID Maximiliano Hansen II 11/08/2024 7:22 PM EDT [facility] Device ID [id number] 11/08/2024 7:22 PM EDT [facility] Specimen Type POC Capillary 11/08/2024 7:22 PM EDT [facility] Blood Capillary blood specimen / Unknown 11/08/2024 7:21 PM EDT 11/08/2024 7:22 PM EDT Nathaly Nowak MD LAB POINT OF CARE TE ST DOCKED DEVICE UNSOLICITED RESULTS Final Result Performing Organization Address City/State/[facility] Co de Phone Number [facility] [address] [place] [address] * (ABNORMAL) POCT glucose meter (11/08/2024 5:12 PM EDT) [facility] POCT Glucose 178(H) 74 - [...] Comment 11/08/2024 5:14 PM EDT [facility] Hammer Adjuster ID Estefani Sheth 11/08/2024 5:14 PM EDT [facility] Device ID [id number] 11/08/2024 5:14 PM EDT [facility] Specimen Type POC Capillary 11/08/2024 5:14 PM EDT [facility] Blood Capillary blood specimen / Unknown 11/08/2024 5:12 PM EDT 11/08/2024 5:14 PM EDT Nathaly Nowak MD LAB POINT OF CARE TE ST DOCKED DEVICE UNSOLICITED RESULTS Final Result Performing Organization Address [facility] Co de Phone Number [facility] [address] [place] [address] * (ABNORMAL) POCT glucose meter (11/08/2024 12:03 PM EDT) Pathologist [facility] POCT Glucose 191(H) 74 - 99 [...] for testing. Comment 11/08/2024 12:05 PM EDT [facility] Hammer Adjuster ID Estefani Sheth 11/08/2024 12:05 PM EDT [facility] LAB Device ID [id number] 11/08/2024 12:05 PM EDT [facility] Specimen Type POC Capillary 11/08/2024 12:05 PM EDT [facility] Blood Capillary blood specimen / Unknown 11/08/2024 12:03 PM EDT 11/08/2024 12:05 PM EDT Nathaly Nowak MD LAB POINT OF CARE TE ST DOCKED DEVICE UNSOLICITED RESULTS Final Result Performing Organization Address [facility] Co de Phone Number [facility] [address] [place] [address] * Vancomycin, Peak, Plasma Please draw ~2 hours after 11/08 0600 dose of vancomycin finishes infusing.Consider obtaining level via peripheral stick. If peripheral stick is not feasible, please ensure that line is flushed well prior to drawing level.... (11/08/2024 9:24 AM EDT) Pathologist [facility] Vancomycin, Peak, Plasma 29.1 20.0 - 40.0 ug/mL 11/08/2024 10:31 AM EDT [facility] Blood Venous blood specimen / Unknown Venipuncture / Unknown 11/08/2024 9:24 AM EDT 11/08/2024 9:47 AM EDT Narrative [facility] - 11/08/2024 10:31 AM EDT Therapeutic Peak level: 20-40ug/mL Supra-therapeutic Peak level: >40 ug/mL Nathaly Nowak MD LAB BLOOD ORDERABLES Final Resu lt Performing Organization Address [facility] Co de Phone Number [facility] [address] [place] [address] * (ABNORMAL) POCT glucose meter (11/08/2024 8:00 AM EDT) [facility] POCT Glucose 150(H) 74 - [...] Comment 11/08/2024 8:01 AM EDT [facility] Hammer Adjuster ID Estefani Sheth 11/08/2024 8:01 AM EDT [facility] Device ID [id number] 11/08/2024 8:01 AM EDT [facility] Specimen Type POC Capillary 11/08/2024 8:01 AM EDT [facility] Blood Capillary blood specimen / Unknown 11/08/2024 8:00 AM EDT 11/08/2024 8:01 AM EDT Nathaly Nowak MD LAB POINT OF CARE TE ST DOCKED DEVICE UNSOLICITED RESULTS Final Result Performing Organization Address City/[facility]/ZIP Co de Phone Number [facility] [address] [place] [address] * (ABNORMAL) CBC and Differential (11/08/2024 4:39 AM EDT) [facility] WBC Count 9.18 3.70 - 10.30 10*3/uL LAB HEMATOLOGY METHOD 11/08/2024 4:58 AM EDT [facility] RBC Count 3.11(L) 4.60 - 6.10 10*6/uL LAB HEMATOLOGY METHOD 11/08/2024 4:58 AM EDT [facility] HGB 9.2(L) 13.7 - 17.5 g/dL LAB HEMATOLOGY METHOD 11/08/2024 4:58 AM EDT [facility] HCT 28.9(L) 40.0 - 51.0 % LAB HEMATOLOGY METHOD 11/08/2024 4:58 AM EDT [facility] Platelet Count 485(H) 155 - 369 10*3/uL LAB HEMATOLOGY METHOD 11/08/2024 4:58 AM EDT [facility] MCV 93 79 - 98 fL LAB HEMATOLOGY METHOD 11/08/2024 4:58 AM EDT [facility] MCH 29.6 26.0 - 32.0 pg LAB HEMATOLOGY METHOD 11/08/2024 4:58 AM EDT [facility] MCHC 31.8 30.7 - 35.5 g/dL LAB HEMATOLOGY METHOD 11/08/2024 4:58 AM EDT [facility] RDW 13.0 11.5 - 14.5 % LAB HEMATOLOGY METHOD 11/08/2024 4:58 AM EDT [facility] MPV 8.8 8.8 - 12.5 fL LAB HEMATOLOGY METHOD 11/08/2024 4:58 AM EDT [facility] nRBC 0.0 <=0.0 per 100 WBCs LAB HEMATOLOGY METHOD 11/08/2024 4:58 AM EDT [facility] Differential Type Automated LAB HEMATOLOGY METHOD 11/08/2024 4:58 AM EDT [facility] Neutrophils % 69 % LAB HEMATOLOGY METHOD 11/08/2024 4:58 AM EDT [facility] Lymphocytes % 17 % LAB HEMATOLOGY METHOD 11/08/2024 4:58 AM EDT [facility] Monocytes % 10 % LAB HEMATOLOGY METHOD 11/08/2024 4:58 AM EDT [facility] Eosinophils % 2 % LAB HEMATOLOGY METHOD 11/08/2024 4:58 AM EDT [facility] Basophils % 1 % LAB HEMATOLOGY METHOD 11/08/2024 4:58 AM EDT [facility] Immature Granulocytes % 1 % LAB HEMATOLOGY METHOD 11/08/2024 4:58 AM EDT [facility] Neutrophils Absolute 6.40(H) 1.60 - 6.10 10*3/uL LAB HEMATOLOGY METHOD 11/08/2024 4:58 AM EDT [facility] Lymphocytes Absolute 1.59 1.20 - 3.90 10*3/uL LAB HEMATOLOGY METHOD 11/08/2024 4:58 AM EDT [facility] Monocytes Absolute 0.87 0.30 - 0.90 10*3/uL LAB HEMATOLOGY METHOD 11/08/2024 4:58 AM EDT [facility] Eosinophils Absolute 0.22 0.00 - 0.50 10*3/uL LAB HEMATOLOGY METHOD 11/08/2024 4:58 AM EDT [facility] Basophils Absolute 0.05 0.00 - 0.10 10*3/uL LAB HEMATOLOGY METHOD 11/08/2024 4:58 AM EDT [facility] Immature Granulocytes Absolute 0.05 0.00 - 0.06 10*3/uL LAB HEMATOLOGY METHOD 11/08/2024 4:58 AM EDT [facility] Blood Venous blood specimen / Unknown Venipuncture / Unknown 11/08/2024 4:39 AM EDT 11/08/2024 4:49 AM EDT Narrative [facility] - 11/08/2024 4:58 AM EDT Therapeutic decision making should be based on absolute values, rather than percentages. us Nathaly Nowak MD LAB BLOOD ORDERABLES Final Resu lt [facility] [address] [place] [address] * (ABNORMAL) Comprehensive Metabolic Panel, Plasma (11/08/2024 4:39 AM EDT) Glucose, Plasma 255(H) 74 - 99 mg/dL 11/08/2024 5:20 AM EDT [facility] BUN, Plasma 10 8 - 23 mg/dL 11/08/2024 5:20 AM EDT [facility] Creatinine, Plasma 0.75 0.70 - 1.20 mg/dL 11/08/2024 5:20 AM EDT [facility] BUN/Creatinine Ratio 13 11/08/2024 5:20 AM EDT [facility] Sodium, Plasma 133(L) 136 - 145 mmol/L 11/08/2024 5:20 AM EDT [facility] Potassium, Plasma 5.2(H) 3.6 - 4.9 mmol/L 11/08/2024 5:20 AM EDT [facility] Chloride, Plasma 105 97 - 107 mmol/L 11/08/2024 5:20 AM EDT [facility] CO2, Plasma 20(L) 22 - 29 mmol/L 11/08/2024 5:20 AM EDT [facility] Anion Gap 8 6 - 16 mmol/L 11/08/2024 5:20 AM EDT [facility] Total Calcium, Plasma 7.7(L) 8.9 - 10.2 mg/dL 11/08/2024 5:20 AM EDT [facility] Total Protein 5.6(L) 6.3 - 7.9 g/dL 11/08/2024 5:20 AM EDT [facility] Albumin, Plasma 2.8(L) 3.5 - 5.2 g/dL 11/08/2024 5:20 AM EDT [facility] AST, Plasma 20 10 - 50 U/L 11/08/2024 5:20 AM EDT [facility] Comment:Hemolyzed, result ma y be falsely increased. ALT, Plasma 14 10 - 50 U/L 11/08/2024 5:20 AM EDT [facility] Alkaline Phosphatase, Plasma 119(H) 40 - 115 U/L 11/08/2024 5:20 AM EDT [facility] Total Bilirubin, Plasma <0.2(L) 0.2 - 1.1 mg/dL 11/08/2024 5:20 AM EDT [facility] eGFRcr 100.1 mL/min/1.7 3m*2 11/08/2024 5:20 AM EDT [facility] Comment:Reported eGFRcr in m L/min/1.73m2 is based the CKD-EPI 2020 equation that does not use a race coefficient. Blood Venous blood specimen / Unknown Venipuncture / Unknown 11/08/2024 4:39 AM EDT 11/08/2024 4:43 AM EDT Nathaly Nowak MD LAB BLOOD ORDERABLES Final Resu lt Performing Organization Address [facility] Co de Phone Number [facility] [address] [place] [address] * Vancomycin, Trough, Plasma Please draw ~30 minutes prior to dose due at 0600 on 11/08. Please do NOThold dose awaiting level to return. Consider obtaining level via peripheral stick. If peripheral stick is not feasible, please ensure that line is... (11/08/2024 4:39 AM EDT) [facility] Vancomycin, Trough, Plasma 18.7 10.0 - 20.0 ug/mL 11/08/2024 5:22 AM EDT [facility] Blood Venous blood specimen / Unknown Venipuncture / Unknown 11/08/2024 4:39 AM EDT 11/08/2024 4:43 AM EDT Narrative [facility] - 11/08/2024 5:22 AM EDT Therapeutic Trough level: 10-20ug/mL Supra-therapeutic Trough level: >20 ug/mL Nathaly Nowak MD LAB BLOOD ORDERABLES Final Resu Performing Organization Address [facility] [place] [address] * (ABNORMAL) POCT glucose meter (11/07/2024 7:26 PM EDT) [facility] POCT Glucose 172(H) 74 - [...] 11/07/2024 7:28 PM EDT [facility] Hammer Adjuster ID [email or web address] Hansen II 11/07/2024 7:28 PM EDT [facility] Device ID [id number] 11/07/2024 7:28 PM EDT [facility] Specimen Type POC Capillary 11/07/2024 7:28 PM EDT [facility]ALTH[facility]ARE LAB Blood Capillary blood specimen / Unknown 11/07/2024 7:26 PM EDT 11/07/2024 7:28 PM EDT Nathaly Nowak MD LAB POINT OF CARE TE ST DOCKED DEVICE UNSOLICITED RESULTS Final Result Performing Organization Address City/[facility]/ZIP Co de Phone Number [facility] [address] [place] [address] * (ABNORMAL) POCT glucose meter (11/07/2024 5:51 [...] Comment 11/07/2024 5:52 PM EDT HEALTHCARE LAB Hammer Adjuster ID Brigitte Castellon 11/07/2024 5:52 PM EDT HEALTHCARE LAB Device ID [id number] 11/07/2024 5:52 PM EDT HEALTHCARE LAB Specimen Type POC Capillary 11/07/2024 5:52 PM EDT [facility]ALTH[facility] Blood Capillary blood specimen / Unknown 11/07/2024 5:51 PM EDT 11/07/2024 5:52 PM EDT us Nathaly Nowak MD LAB POINT OF CARE TE ST DOCKED DEVICE UNSOLICITED RESULTS Final Result [facility] [address] [place] [address] * (ABNORMAL) POCT glucose meter (11/07/2024 4:47 [...] 11/07/2024 4:48 PM EDT [facility] Hammer Adjuster ID Estefani Sheth 11/07/2024 4:48 PM EDT [facility] Device ID [id number] 11/07/2024 4:48 PM EDT [facility] Specimen Type POC Capillary 11/07/2024 4:48 PM EDT [facility]ALTH[facility]ARE [facility] Blood Capillary blood specimen / Unknown 11/07/2024 4:47 PM EDT 11/07/2024 4:48 PM EDT us Nathaly Nowak MD LAB POINT OF CARE TE ST DOCKED DEVICE UNSOLICITED RESULTS Final Result Performing Organization Address City/State/[facility] Co de Phone Number [facility] [address] [place] [address] * (ABNORMAL) POCT glucose meter (11/07/2024 12:22 PM EDT) [facility] POCT Glucose 172(H) 74 - [...] 11/07/2024 12:24 PM EDT [facility] Hammer Adjuster ID Estefani Sheth 11/07/2024 12:24 PM EDT [facility] Device ID [id number] 11/07/2024 12:24 PM EDT [facility] Specimen Type POC Capillary 11/07/2024 12:24 PM EDT [facility]ALTH[facility]ARE [facility] Blood Capillary blood specimen / Unknown 11/07/2024 12:22 PM EDT 11/07/2024 12:24 PM EDT us Nathaly Nowak MD LAB POINT OF CARE TE ST DOCKED DEVICE UNSOLICITED RESULTS Final Result [facility] [address] [place] [id number] * (ABNORMAL) CBC and Differential (11/07/2024 11:37 AM EDT) WBC Count 9.96 3.70 - 10.30 10*3/uL LAB HEMATOLOGY METHOD 11/07/2024 12:33 PM EDT [facility] RBC Count 2.81(L) 4.60 - 6.10 10*6/uL LAB HEMATOLOGY METHOD 11/07/2024 12:33 PM EDT [facility] HGB 8.5(L) 13.7 - 17.5 g/dL LAB HEMATOLOGY METHOD 11/07/2024 12:33 PM EDT [facility] HCT 26.0(L) 40.0 - 51.0 % LAB HEMATOLOGY METHOD 11/07/2024 12:33 PM EDT [facility] Platelet Count 524(H) 155 - 369 10*3/uL LAB HEMATOLOGY METHOD 11/07/2024 12:33 PM EDT [facility] MCV 93 79 - 98 fL LAB HEMATOLOGY METHOD 11/07/2024 12:33 PM EDT [facility] MCH 30.2 26.0 - 32.0 pg LAB HEMATOLOGY METHOD 11/07/2024 12:33 PM EDT [facility] MCHC 32.7 30.7 - 35.5 g/dL LAB HEMATOLOGY METHOD 11/07/2024 12:33 PM EDT [facility] RDW 13.1 11.5 - 14.5 % LAB HEMATOLOGY METHOD 11/07/2024 12:33 PM EDT [facility] MPV 9.0 8.8 - 12.5 fL LAB HEMATOLOGY METHOD 11/07/2024 12:33 PM EDT [facility] nRBC 0.0 <=0.0 per 100 WBCs LAB HEMATOLOGY METHOD 11/07/2024 12:33 PM EDT [facility] Differential Type Automated LAB HEMATOLOGY METHOD 11/07/2024 12:33 PM EDT [facility] Neutrophils % 72 % LAB HEMATOLOGY METHOD 11/07/2024 12:33 PM EDT [facility] Lymphocytes % 17 % LAB HEMATOLOGY METHOD 11/07/2024 12:33 PM EDT [facility] Monocytes % 9 % LAB HEMATOLOGY METHOD 11/07/2024 12:33 PM EDT [facility] Eosinophils % 1 % LAB HEMATOLOGY METHOD 11/07/2024 12:33 PM EDT [facility] Basophils % 1 % LAB HEMATOLOGY METHOD 11/07/2024 12:33 PM EDT [facility] Immature Granulocytes % 0 % LAB HEMATOLOGY METHOD 11/07/2024 12:33 PM EDT [facility] Neutrophils Absolute 7.19(H) 1.60 - 6.10 10*3/uL LAB HEMATOLOGY METHOD 11/07/2024 12:33 PM EDT [facility] Lymphocytes Absolute 1.66 1.20 - 3.90 10*3/uL LAB HEMATOLOGY METHOD 11/07/2024 12:33 PM EDT [facility] Monocytes Absolute 0.88 0.30 - 0.90 10*3/uL LAB HEMATOLOGY METHOD 11/07/2024 12:33 PM EDT [facility] Eosinophils Absolute 0.14 0.00 - 0.50 10*3/uL LAB HEMATOLOGY METHOD 11/07/2024 12:33 PM EDT [facility] Basophils Absolute 0.05 0.00 - 0.10 10*3/uL LAB HEMATOLOGY METHOD 11/07/2024 12:33 PM EDT [facility] Immature Granulocytes Absolute 0.04 0.00 - 0.06 10*3/uL LAB HEMATOLOGY METHOD 11/07/2024 12:33 PM EDT [facility] Blood Venous blood specimen / Unknown Venipuncture / Unknown 11/07/2024 11:37 AM EDT 11/07/2024 12:24 PM EDT [facility] - 11/07/2024 12:33 PM EDT Therapeutic decision making should be based on absolute values, rather than percentages. us Nathaly Nowak MD LAB BLOOD ORDERABLES Final Resu lt [facility] [address] [place] [address] * (ABNORMAL) Comprehensive Metabolic Panel, Plasma (11/07/2024 11:37 AM EDT) Glucose, Plasma 173(H) 74 - 99 mg/dL 11/07/2024 1:31 PM EDT [facility] BUN, Plasma 13 8 - 23 mg/dL 11/07/2024 1:31 PM EDT [facility] Creatinine, Plasma 0.92 0.70 - 1.20 mg/dL 11/07/2024 1:31 PM EDT [facility] BUN/Creatinine Ratio 14 11/07/2024 1:31 PM EDT [facility] Sodium, Plasma 136 136 - 145 mmol/L 11/07/2024 1:31 PM EDT [facility] Potassium, Plasma 4.0 3.6 - 4.9 mmol/L 11/07/2024 1:31 PM EDT [facility] Chloride, Plasma 104 97 - 107 mmol/L 11/07/2024 1:31 PM EDT [facility] CO2, Plasma 23 22 - 29 mmol/L 11/07/2024 1:31 PM EDT [facility] Anion Gap 9 6 - 16 mmol/L 11/07/2024 1:31 PM EDT [facility] Total Calcium, Plasma 7.8(L) 8.9 - 10.2 mg/dL 11/07/2024 1:31 PM EDT [facility] Total Protein 5.7(L) 6.3 - 7.9 g/dL 11/07/2024 1:31 PM EDT [facility] Albumin, Plasma 3.0(L) 3.5 - 5.2 g/dL 11/07/2024 1:31 PM EDT [facility] AST, Plasma 15 10 - 50 U/L 11/07/2024 1:31 PM EDT [facility] ALT, Plasma 16 10 - 50 U/L 11/07/2024 1:31 PM EDT [facility] Alkaline Phosphatase, Plasma 119(H) 40 - 115 U/L 11/07/2024 1:31 PM EDT [facility] Total Bilirubin, Plasma <0.2(L) 0.2 - 1.1 mg/dL 11/07/2024 1:31 PM EDT [facility] eGFRcr 92.3 mL/min/1.7 3m*2 11/07/2024 1:31 PM EDT [facility] Comment:Reported eGFRcr in m L/min/1.73m2 is based the CKD-EPI 2020 equation that does not use a race coefficient. Blood Venous blood specimen / Unknown Venipuncture / Unknown 11/07/2024 11:37 AM EDT 11/07/2024 12:23 PM EDT Nathaly Nowak MD LAB BLOOD ORDERABLES Final Resu lt Performing Organization Address City/[facility]/ZIP Co de Phone Number [facility] [address] [place] [address] * Type and Screen (11/07/2024 11:37 AM [...] ORDERABLES F inal Result Performing Organization Address [facility] Co de Phone Number BLOOD BANK [address] [place] [address], * (ABNORMAL) POCT glucose meter (11/07/2024 10:34 AM EDT) POCT Glucose 199(H) 74 - 99 mg/dL 11/07/2024 10:36 AM EDT [facility] Comment:Accuracy of a glucos e result [...] Comment 11/07/2024 10:36 AM EDT HEALTHCARE LAB Hammer Adjuster ID Joy Iraheta 11/07/2024 10:36 AM EDT HEALTHCARE LAB Device ID [id number] 11/07/2024 10:36 AM EDT HEALTH[facility]ARE LAB Specimen Type POC Capillary 11/07/2024 10:36 AM EDT [facility]ALTH[facility] Blood Capillary blood specimen / Unknown 11/07/2024 10:34 AM EDT 11/07/2024 10:36 AM EDT Nathaly Nowak MD LAB POINT OF CARE TE ST DOCKED DEVICE UNSOLICITED RESULTS Final Result Performing Organization Address City/[facility] de Phone Number HEALTHCARE LAB [address] [place] [address] * (ABNORMAL) POCT glucose meter (11/07/2024 9:34 AM EDT) [facility] Signature POCT Glucose 208(H) 74 - 99 mg/dL [...] Comment 11/07/2024 9:36 AM EDT HEALTHCARE LAB Hammer Adjuster ID Brigitte Castellon 11/07/2024 9:36 AM EDT HEALTHCARE LAB Device ID [id number] 11/07/2024 9:36 AM EDT HEALTHCARE LAB Specimen Type POC Capillary 11/07/2024 9:36 AM EDT [facility]ALTH[facility] Blood Capillary blood specimen / Unknown 11/07/2024 9:34 AM EDT 11/07/2024 9:36 AM EDT Nathaly Nowak MD LAB POINT OF CARE TE ST DOCKED DEVICE UNSOLICITED RESULTS Final Result Performing Organization Address City/[facility] Co de Phone Number HEALTHCARE LAB [address] [place] [address] * (ABNORMAL) POCT glucose meter (11/07/2024 8:20 AM EDT) [facility] POCT Glucose 137(H) 74 - [...] Comment 11/07/2024 8:22 AM EDT HEALTHCARE LAB Hammer Adjuster ID Estefani Sheth 11/07/2024 8:22 AM EDT [facility] Device ID [id number] 11/07/2024 8:22 AM EDT HEALTHCARE LAB Specimen Type POC Capillary 11/07/2024 8:22 AM EDT [facility]ALTH[facility]ARE [facility] Blood Capillary blood specimen / Unknown 11/07/2024 8:20 AM EDT 11/07/2024 8:22 AM EDT Nathaly Nowak MD LAB POINT OF CARE TE ST DOCKED DEVICE UNSOLICITED RESULTS Final Result [facility] [address] [place] [address] * (ABNORMAL) POCT glucose meter (11/07/2024 7:21 AM EDT) [facility] POCT Glucose 151(H) 74 - [...] 11/07/2024 7:22 AM EDT [facility] Hammer Adjuster ID Brigitte Castellon 11/07/2024 7:22 AM EDT HEALTHCARE LAB Device ID [id number] 11/07/2024 7:22 AM EDT [facility] Specimen Type POC Capillary 11/07/2024 7:22 AM EDT [facility]ALTHCARE [facility] Blood Capillary blood specimen / Unknown 11/07/2024 7:21 AM EDT 11/07/2024 7:22 AM EDT Nathaly Nowak MD LAB POINT OF CARE TE ST DOCKED DEVICE UNSOLICITED RESULTS Final Result Performing Organization Address City/[facility] Co de Phone Number [facility]ALTHCARE LAB [address] [place] [address] * (ABNORMAL) POCT glucose meter (11/07/2024 6:25 [...] Comment 11/07/2024 6:27 AM EDT HEALTHCARE LAB Hammer Adjuster ID Nelda Gerber 11/08/19 6:27 AM EDT HEALTHCARE LAB Device ID [id number] 11/07/2024 6:27 AM EDT HEALTHCARE LAB Specimen Type POC Capillary 11/07/2024 6:27 AM EDT [facility]ALTH[facility]ARE [facility] Blood Capillary blood specimen / Unknown 11/07/2024 6:25 AM EDT 11/07/2024 6:27 AM EDT us Nathaly Nowak MD LAB POINT OF CARE TE ST DOCKED DEVICE UNSOLICITED RESULTS Final Result Performing Organization Address City/[facility]/ZIP Co de Phone Number [facility] [address] [place] [address] * (ABNORMAL) POCT glucose meter (11/07/2024 5:03 [...] Comment 11/07/2024 5:08 AM EDT HEALTHCARE LAB Hammer Adjuster ID Nelda Gerber 11/08/19 5:08 AM EDT HEALTHCARE LAB Device ID [id number] 11/07/2024 5:08 AM EDT HEALTH[facility]ARE LAB Specimen Type POC Capillary 11/07/2024 5:08 AM EDT [facility]ALTH[facility]ARE [facility] Blood Capillary blood specimen / Unknown 11/07/2024 5:03 AM EDT 11/07/2024 5:08 AM EDT Nathaly Nowak MD LAB POINT OF CARE TE ST DOCKED DEVICE UNSOLICITED RESULTS Final Result Performing Organization Address City/State/[facility] Co de Phone Number [facility]ARE LAB [address] [place] [address] * (ABNORMAL) POCT glucose meter (11/07/2024 4:16 AM EDT) [facility] POCT Glucose 142(H) 74 - 99 mg/dL [...] Comment 11/07/2024 4:18 AM EDT HEALTHCARE LAB Hammer Adjuster ID Nelda Gerber 11/08/19 4:18 AM EDT HEALTHCARE LAB Device ID [id number] 11/07/2024 4:18 AM EDT HEALTHCARE LAB Specimen Type POC Capillary 11/07/2024 4:18 AM EDT [facility]ALTH[facility] Blood Capillary blood specimen / Unknown 11/07/2024 4:16 AM EDT 11/07/2024 4:18 AM EDT us Nathaly Nowak MD LAB POINT OF CARE TE ST DOCKED DEVICE UNSOLICITED RESULTS Final Result [facility] [address] [place] [address] * (ABNORMAL) POCT glucose meter (11/07/2024 3:21 [...] for testing. Comment 11/07/2024 3:23 AM EDT [facility] Hammer Adjuster ID Nelda Gerber 11/08/19 3:23 AM EDT [facility] Device ID [id number] 11/07/2024 3:23 AM EDT [facility] Specimen Type POC Capillary 11/07/2024 3:23 AM EDT [facility] Blood Capillary blood specimen / Unknown 11/07/2024 3:21 AM EDT 11/07/2024 3:23 AM EDT us Nathaly Nowak MD LAB POINT OF CARE TE ST DOCKED DEVICE UNSOLICITED RESULTS Final Result Performing Organization Address City/[facility]/ZIP Co de Phone Number [facility] [address] [place] [address] * (ABNORMAL) POCT glucose meter (11/07/2024 2:10 [...] Comment 11/07/2024 2:12 AM EDT HEALTHCARE LAB Hammer Adjuster ID Nelda Gerber 11/08/19 2:12 AM EDT [facility] Device ID [id number] 11/07/2024 2:12 AM EDT [facility] Specimen Type POC Capillary 11/07/2024 2:12 AM EDT HEALTHCARE LAB Blood Capillary blood specimen / Unknown 11/07/2024 2:10 AM EDT 11/07/2024 2:12 AM EDT Nathaly Nowak MD LAB POINT OF CARE TE ST DOCKED DEVICE UNSOLICITED RESULTS Final Result Performing Organization Address City/[facility] Co de Phone Number [facility] [address] [place] [address] * (ABNORMAL) POCT glucose meter (11/07/2024 1:08 [...] Comment 11/07/2024 1:10 AM EDT HEALTHCARE LAB Hammer Adjuster ID Nelda Gerber 11/08/19 1:10 AM EDT HEALTHCARE LAB Device ID [id number] 11/07/2024 1:10 AM EDT [facility] Specimen Type POC Capillary 11/07/2024 1:10 AM EDT [facility]ALTH[facility] LAB Blood Capillary blood specimen / Unknown 11/07/2024 1:08 AM EDT 11/07/2024 1:10 AM EDT Nathaly Nowak MD LAB POINT OF CARE TE ST DOCKED DEVICE UNSOLICITED RESULTS Final Result Performing Organization Address City/[facility]/ZIP Co de Phone Number [facility] [address] [place] [address] * (ABNORMAL) POCT glucose meter (11/07/2024 12:10 AM EDT) Pathologist [facility] POCT Glucose 127(H) 74 - 99 [...] Comment 11/07/2024 12:13 AM EDT HEALTHCARE LAB Hammer Adjuster ID Nelda Gerber 11/08/19 12:13 AM EDT [facility] Device ID [id number] 11/07/2024 12:13 AM EDT [facility] Specimen Type POC Capillary 11/07/2024 12:13 AM EDT [facility] Blood Capillary blood specimen / Unknown 11/07/2024 12:10 AM EDT 11/07/2024 12:13 AM EDT us Nathaly Nowak MD LAB POINT OF CARE TE ST DOCKED DEVICE UNSOLICITED RESULTS Final Result Performing Organization Address City/State/[facility] Co de Phone Number HEALTHCARE LAB [address] [place] [address] * (ABNORMAL) POCT glucose meter (11/06/2024 11:14 PM EDT) [facility] POCT Glucose 71(L) 74 - [...] 11/06/2024 11:16 PM EDT [facility] Hammer Adjuster ID Nelda Gerber 11/07/19 11:16 PM EDT [facility] Device ID [id number] 11/06/2024 11:16 PM EDT HEALTHCARE LAB Specimen Type POC Capillary 11/06/2024 11:16 PM EDT HEALTHCARE LAB Blood Capillary blood specimen / Unknown 11/06/2024 11:14 PM EDT 11/06/2024 11:16 PM EDT Nathaly Nowak MD LAB POINT OF CARE TE ST DOCKED DEVICE UNSOLICITED RESULTS Final Result [facility] [address] [place] [address] * (ABNORMAL) POCT glucose meter (11/06/2024 10:07 [...] Comment 11/06/2024 10:09 PM EDT HEALTHCARE LAB Hammer Adjuster ID Nelda Gerber 11/07/19 10:09 PM EDT HEALTHCARE LAB Device ID [id number] 11/06/2024 10:09 PM EDT [facility] Specimen Type POC Capillary 11/06/2024 10:09 PM EDT [facility] Blood Capillary blood specimen / Unknown 11/06/2024 10:07 PM EDT 11/06/2024 10:09 PM EDT Nathaly Nowak MD LAB POINT OF CARE TE ST DOCKED DEVICE UNSOLICITED RESULTS Final Result [facility] [address] [place] [address] * (ABNORMAL) POCT glucose meter (11/06/2024 8:22 [...] Comment 11/06/2024 8:25 PM EDT HEALTHCARE LAB Hammer Adjuster ID Nelda Gerber 11/07/19 8:25 PM EDT HEALTHCARE LAB Device ID [id number] 11/06/2024 8:25 PM EDT HEALTH[facility]ARE LAB Specimen Type POC Capillary 11/06/2024 8:25 PM EDT [facility]ALTH[facility] LAB Blood Capillary blood specimen / Unknown 11/06/2024 8:22 PM EDT 11/06/2024 8:25 PM EDT Nathaly Nowak MD LAB POINT OF CARE TE ST DOCKED DEVICE UNSOLICITED RESULTS Final Result Performing Organization Address City/State/[facility] Co de Phone Number HEALTHCARE LAB [address] [place] [address] * (ABNORMAL) POCT glucose meter (11/06/2024 7:31 [...] Comment 11/06/2024 7:32 PM EDT HEALTHCARE LAB Hammer Adjuster ID Nelda Gerber 11/07/19 7:32 PM EDT HEALTHCARE LAB Device ID [id number] 11/06/2024 7:32 PM EDT HEALTHCARE LAB Specimen Type POC Capillary 11/06/2024 7:32 PM EDT [facility]ALTH[facility] Blood Capillary blood specimen / Unknown 11/06/2024 7:31 PM EDT 11/06/2024 7:32 PM EDT us Nathaly Nowak MD LAB POINT OF CARE TE ST DOCKED DEVICE UNSOLICITED RESULTS Final Result Performing Organization Address City/[facility]/ZIP Co de Phone Number [facility]ARE [facility] [address] [place] [address] * (ABNORMAL) POCT glucose meter (11/06/2024 6:15 PM EDT) [facility] POCT Glucose 368(H) 74 - 99 mg/dL [...] for testing. Comment 11/06/2024 6:17 PM EDT [facility] Hammer Adjuster ID Estefani Sheth 11/06/2024 6:17 PM EDT [facility] Device ID [id number] 11/06/2024 6:17 PM EDT [facility] Specimen Type POC Capillary 11/06/2024 6:17 PM EDT [facility] Blood Capillary blood specimen / Unknown 11/06/2024 6:15 PM EDT 11/06/2024 6:17 PM EDT Nathaly Nowak MD LAB POINT OF CARE TE ST DOCKED DEVICE UNSOLICITED RESULTS Final Result Performing Organization Address City/[facility] Co de Phone Number [facility] [address] [place] [address] * (ABNORMAL) POCT glucose meter (11/06/2024 4:57 PM EDT) [facility] POCT Glucose 417(H) 74 - 99 mg/dL [...] 11/06/2024 4:58 PM EDT [facility] Hammer Adjuster ID Estefani Sheth 11/06/2024 4:58 PM EDT HEALTHCARE LAB Device ID [id number] 11/06/2024 4:58 PM EDT HEALTHCARE LAB Specimen Type POC Capillary 11/06/2024 4:58 PM EDT [facility]ALTH[facility]ARE LAB Blood Capillary blood specimen / Unknown 11/06/2024 4:57 PM EDT 11/06/2024 4:58 PM EDT Nathaly Nowak MD LAB POINT OF CARE TE ST DOCKED DEVICE UNSOLICITED RESULTS Final Result Performing Organization Address City/[facility]/ZIP Co de Phone Number [facility]ARE [facility] [address] [place] [address] * (ABNORMAL) POCT glucose meter (11/06/2024 2:08 [...] Comment 11/06/2024 2:09 PM EDT HEALTHCARE LAB Hammer Adjuster ID Brigitte Castellon 11/06/2024 2:09 PM EDT HEALTHCARE LAB Device ID [id number] 11/06/2024 2:09 PM EDT HEALTHCARE LAB Specimen Type POC Capillary 11/06/2024 2:09 PM EDT [facility]ALTH[facility]ARE [facility] Blood Capillary blood specimen / Unknown 11/06/2024 2:08 PM EDT 11/06/2024 2:09 PM EDT Nathaly Nowak MD LAB POINT OF CARE TE ST DOCKED DEVICE UNSOLICITED RESULTS Final Result Performing Organization Address City/[facility]/ZIP Co de Phone Number [facility]ARE [facility] [address] [place] [address] * (ABNORMAL) POCT glucose meter (11/06/2024 12:27 [...] Comment 11/06/2024 12:28 PM EDT [facility]ALTHCARE LAB Hammer Adjuster ID Jacinta Galloway 11/06/2024 12:28 PM EDT HEALTHCARE LAB Device ID [id number] 11/06/2024 12:28 PM EDT HEALTHCARE LAB Specimen Type POC Capillary 11/06/2024 12:28 PM EDT [facility]ALTH[facility]ARE LAB Blood Capillary blood specimen / Unknown 11/06/2024 12:27 PM EDT 11/06/2024 12:28 PM EDT us Nathaly Nowak MD LAB POINT OF CARE TE ST DOCKED DEVICE UNSOLICITED RESULTS Final Result Performing Organization Address City/State/[facility] Co de Phone Number HEALTHCARE LAB [address] [place] [address] * (ABNORMAL) Fungal Culture, Tissue and ISIDRO (11/06/2024 11:34 AM EDT) [facility] Culture Reading Mycological 4 Weeks Rare [place] Sana parapsilosis (A) 12/05/2024 8:36 AM EDT [facility] Comment: This isolate has been identified using the FDA Approved [employer] [place] System The organism value for this result has been updated. These results have been appended to the previously preliminary verified report. Edited result: Previously reported as Yeast on 11/11/2024 at 1317 EDT. ISIDRO No fungal elements seen 12/05/2024 8:36 AM EDT [facility] Tissue Topography unknown [...] Nathaly Nowak MD LAB MICROBIOLOGY - [facility] Final Result [facility] [address] [place] [address] * (ABNORMAL) Tissue Culture and Gram Stain (11/06/2024 11:34 AM EDT) Culture Moderate Growth 7:35 AM EDT [facility] Culture 2+ Enterobacter cloacae complex(A) ANGÉLICA 11/15/2024 7:35 AM EDT [facility] Comment: This isolate has been identified using the FDA Approved [employer] System The organism value for this result has been updated. These results have been appended to the previously preliminary verified report. Edited result: Previously reported as Gram Negative Jesus on 11/07/2024 at 1434 EDT. Culture 2+ Streptococcus mitis/oralis group(A) ANGÉLICA 11/15/2024 7:35 AM EDT [facility] Comment: This isolate has been identified using the FDA Approved [employer] [place] System The organism value for this result has been updated. These results have been appended to the previously preliminary verified report. Culture 2+ Pasteurella stomatis(A) ANGÉLICA 11/15/2024 7:35 AM EDT [facility] Comment: This result was determined by [employer] tof mass spectrometry using the [employer] database and is for research use only. The organism value for this result has been updated. These results have been appended to the previously preliminary verified report. Gram Stain Result Few Gram negative rods(A) 11/15/2024 7:35 AM EDT [facility] Gram Stain Result Moderate Polymorphonuclear leukocytes(A) 11/15/2024 7:35 AM EDT [facility] Gram Stain Result Few Gram positive cocci in pairs(A) 11/15/2024 7:35 AM EDT [facility] Tissue Topography unknown / Unknown 11/06/2024 11:34 AM EDT 11/06/2024 12:18 PM EDT Comment:Pre-op diagnosis: Surgical wound infection [T81.49XA] Narrative [facility] - 11/15/2024 7:35 AM [...] GENERAL ORDAna FRITZ Edited Result - Final [facility] [address] [place] [address] * (ABNORMAL) Anaerobic Culture (11/06/2024 11:34 AM EDT) Culture No anaerobes isolated 11/14/2024 1:25 PM EDT [facility] Culture Staphylococcus pseudintermedius( A) 11/14/2024 1:25 PM EDT [facility] Comment: This result was determined by [employer] tof mass spectrometry using the [employer] database and is for research use only. This is an appended report. These results have been appended to a previously final verified report. Tissue Topography unknown / Unknown 11/06/2024 11:34 AM EDT 11/06/2024 12:18 PM EDT Comment:Pre-op diagnosis: Surgical wound infection [T81.49XA] Narrative [facility] - 11/14/2024 1:25 PM EDT Mixed Skin [place] includes Streptococcus mitis/oralis group and Staphylococcus Pseudintermedius Organism Antibiotic Method Susceptibility Staphylococcus pseudintermedius Clindamycin ANGÉLICA <=0.5 ug/ml: Susceptible Staphylococcus pseudintermedius Daptomycin ANGÉLICA <=1 ug/ml: Susceptible Staphylococcus pseudintermedius Erythromycin ANGÉLICA <=0.5 ug/ml: Susceptible Staphylococcus pseudintermedius Gentamicin ANGÉLICA <=1 ug/ml: Susceptible Staphylococcus pseudintermedius Linezolid ANGÉLICA <=1 ug/ml: Susceptible Staphylococcus pseudintermedius Minocycline ANGÉILCA <=1 ug/ml: Susceptible Staphylococcus pseudintermedius Oxacillin ANGÉLICA <=0.25 ug/ml: Susceptible Staphylococcus pseudintermedius Penicillin G ANGÉLICA >1 ug/ml: Resistant Staphylococcus pseudintermedius Tetracycline ANGÉLICA <=0.5 ug/ml: Susceptible Staphylococcus pseudintermedius Vancomycin ANGÉLICA <=0.5 ug/ml: Susceptible Nathaly Nowak MD LAB MICROBIOLOGY - GENERAL ORDAna [facility] Edited Result - Final [facility] [address] [place] [address] * (ABNORMAL) Routine Culture and Gram Stain (11/06/2024 11:29 AM EDT) Culture Moderate Growth 5:29 PM EDT [facility] Culture Enterobacter cloacae complex(A) 11/08/2024 5:29 PM EDT [facility] Comment: This isolate has been identified using the FDA Approved [employer] [place] System For susceptibility results refer to: - [id number] The organism value for this result has been updated. These results have been appended to the previously preliminary verified report. Gram Stain Result No polymorphonuclear leukocytes seen 11/08/2024 5:29 PM EDT [facility] Gram Stain Result No organisms seen 11/08/2024 5:29 PM EDT [facility] Swab Topography unknown / Unknown 11/06/2024 11:29 AM EDT 11/06/2024 12:19 PM EDT Comment:Pre-op diagnosis: Surgical wound infection [T81.49XA] Nathaly Nowak MD LAB MICROBIOLOGY - GENERAL ORD LAM Final Result Performing Organization Address City/[facility] [place] [address] * Fungal Culture, Routine (11/06/2024 11:29 AM EDT) Culture No Fungal Growth at 1 Week 11/13/2024 8:29 AM EDT [facility] Swab Topography unknown / Unknown 11/06/2024 11:29 AM EDT 11/06/2024 12:19 PM EDT Comment:Pre-op diagnosis: Surgical wound infection [T81.49XA] Nathaly Nowak MD LAB MICROBIOLOGY - GENERAL [facility] Final Result Performing Organization Address [facility] [place] [address] * (ABNORMAL) Anaerobic Culture (11/06/2024 11:29 AM EDT) Culture No anaerobes isolated 11/14/2024 1:25 PM EDT [facility] Culture Streptococcus mitis/oralis group(A) 11/14/2024 1:25 PM EDT [facility] Comment: This result was determined by MALDI tof mass spectrometry using the [employer] database and is for research use only. The organism value for this result has been updated. These results have been appended to the previously preliminary verified report. This is a corrected result. Previous organism was Mixed skin clifton on 11/10/2024 at 0718 EDT. Culture Staphylococcus pseudintermedius( A) 11/14/2024 1:25 PM EDT [facility] Comment: This isolate has been identified using the FDA Approved [employer] [place] System This is an appended report. These results have been appended to a previously final verified report. Swab Topography unknown / Unknown 11/06/2024 11:29 AM EDT 11/06/2024 12:19 PM EDT Comment:Pre-op diagnosis: Surgical wound infection [T81.49XA] Narrative [facility] - 11/14/2024 1:25 PM [...] Nowak MD LAB MICROBIOLOGY - GENERAL ORDE [facility] Edited Result - Final [facility] [address] [place] [address] * Routine Culture and Gram Stain (11/06/2024 11:28 AM EDT) Culture No growth at day 4 2024 11:24 AM EDT [facility] Gram Stain Result No organisms seen 11/10/2024 11:24 AM EDT [facility] Gram Stain Result No polymorphonuclear leukocytes seen 11/10/2024 11:24 AM EDT [facility] Swab Topography unknown / Unknown 11/06/2024 11:28 AM EDT 11/06/2024 12:20 PM EDT Comment:Pre-op diagnosis: Surgical wound infection [T81.49XA] Nathaly Nowak MD LAB MICROBIOLOGY - GENERAL ORDE LAM Final Result Performing Organization Address [facility] Co de Phone Number [facility] [address] [place] [address] * Fungal Culture, Routine (11/06/2024 11:28 AM EDT) Culture No Fungal Growth at 1 Week 11/13/2024 8:29 AM EDT [facility] Swab Topography unknown / Unknown 11/06/2024 11:28 AM EDT 11/06/2024 12:20 PM EDT Comment:Pre-op diagnosis: Surgical wound infection [T81.49XA] Nathaly Nowak MD LAB MICROBIOLOGY - GENERAL ORDE LAM Final Result Performing Organization Address [facility] [place] [address] * Anaerobic Culture (11/06/2024 11:28 AM EDT) Culture No growth at day 4 11/13/2024 12:53 PM EDT [facility] Swab Topography unknown / Unknown 11/06/2024 11:28 AM EDT 11/06/2024 12:20 PM EDT Comment:Pre-op diagnosis: Surgical wound infection [T81.49XA] Result [facility] Nathaly Nowak MD LAB MICROBIOLOGY - GENERAL ATIYA FRITZ Final Result Performing Organization Address City/[facility] Co de Phone Number [facility] [address] [place] [address] * (ABNORMAL) POCT glucose meter (11/06/2024 10:16 AM EDT) POCT Glucose 194(H) 74 - 99 mg/dL 11/06/2024 10:18 AM EDT [facility] Comment:Accuracy of a glucos e [...] Comment 11/06/2024 10:18 AM EDT [facility] Hammer Adjuster ID Lacy Griffin 11/07/19 10:18 AM EDT [facility] Device ID [id number] 11/06/2024 10:18 AM EDT [facility] Specimen Type POC Capillary 11/06/2024 10:18 AM EDT [facility] Blood Capillary blood specimen / Unknown 11/06/2024 10:16 AM EDT 11/06/2024 10:18 AM EDT us Nathaly Nowak MD LAB POINT OF CARE TE ST DOCKED DEVICE UNSOLICITED RESULTS Final Result Performing Organization Address City/[facility]/ZIP Co de Phone Number [facility]ARE [facility] [address] [place] [address] * (ABNORMAL) POCT glucose meter (11/06/2024 5:58 AM EDT) [facility] POCT Glucose 182(H) 74 - [...] Comment 11/06/2024 6:01 AM EDT [facility] Hammer Adjuster ID Raj Laird 11/07/19 6:01 AM EDT [facility]ALTH[facility]ARE LAB Device ID [id number] 11/06/2024 6:01 AM EDT [facility] Specimen Type POC Capillary 11/06/2024 6:01 AM EDT [facility] Blood Capillary blood specimen / Unknown 11/06/2024 5:58 AM EDT 11/06/2024 6:01 AM EDT us Nathaly Nowak MD LAB POINT OF CARE TE ST DOCKED DEVICE UNSOLICITED RESULTS Final Result [facility] [address] [place] [address] * (ABNORMAL) POCT glucose meter (11/06/2024 5:36 [...] Comment 11/06/2024 5:38 AM EDT [facility] LAB Hammer Adjuster ID Shahid Sanches 11/06/2024 5:38 AM EDT HEALTH[facility]ARE LAB Device ID [id number] 11/06/2024 5:38 AM EDT [facility] Specimen Type POC Capillary 11/06/2024 5:38 AM EDT [facility] Blood Capillary blood specimen / Unknown 11/06/2024 5:36 AM EDT 11/06/2024 5:38 AM EDT Nathaly Nowak MD LAB POINT OF CARE TE ST DOCKED DEVICE UNSOLICITED RESULTS Final Result [facility] [address] [place] [address] * (ABNORMAL) Hemoglobin A1c (11/06/2024 1:07 AM EDT) Hemoglobin A1c 7.6(H) <5.7 % 11/06/2024 11:09 AM EDT [facility] Blood Venous blood specimen / Unknown Venipuncture / Unknown 11/06/2024 1:07 AM EDT 11/06/2024 1:26 AM EDT Narrative [facility] - 11/06/2024 11:09 AM EDT HA1C Interpretive Data: Diagnosis of Diabetes: Diabetic > or = 6.5% Pre-diabetic 5.7 to 6.4% Non-diabetic < or = 5.6% Glycemic Targets for Type I and Type II Diabetics: Non- Adults <7.0% Adults <6.0% Children and Adolescents <7.5% Source: Citizen Of [place] Diabetes Association. Standards of medical care in diabetes,2017. Diabetes Care.2017:40 (suppl 1):S1-S135. Result [facility] Nathaly Nowak MD LAB BLOOD ORDERABLES Final Resu lt Performing Organization Address [facility] Co de Phone Number [facility] [address] [place] [address] * Blood Culture (Aerobic/Anaerobet Set) (11/06/2024 1:07 AM EDT) Culture No growth at day 5 11/11/2024 2:49 AM EDT [facility] Blood Structure of right hand / Unknown Venipuncture / Unknown 11/06/2024 1:07 AM EDT 11/06/2024 2:36 AM EDT Nathaly Nowak MD LAB MICROBIOLOGY - GENERAL ORDE RABONEIDA Final Result Performing Organization Address [facility] Co de Phone Number [facility] [address] [place] [address] * Blood Culture (Aerobic/Anaerobet Set) (11/06/2024 1:07 AM EDT) Culture No growth at day 5 11/11/2024 3:01 AM EDT [facility] Blood Structure of antecubital vein / Unknown Venipuncture / Unknown 11/06/2024 1:07 AM EDT 11/06/2024 2:36 AM EDT Nathaly Nowak MD LAB MICROBIOLOGY - GENERAL ORDE RABONEIDA Final Result Performing Organization Address [facility] Co de Phone Number [facility] [address] [place] [address] * (ABNORMAL) Basic metabolic panel (11/06/2024 1:07 AM EDT) Glucose, Plasma 207(H) 74 - 99 mg/dL 11/06/2024 1:41 AM EDT [facility] BUN, Plasma 20 8 - 23 mg/dL 11/06/2024 1:41 AM EDT [facility] Creatinine, Plasma 0.92 0.70 - 1.20 mg/dL 11/06/2024 1:41 AM EDT [facility] BUN/Creatinine Ratio 22 11/06/2024 1:41 AM EDT [facility] Sodium, Plasma 136 136 - 145 mmol/L 11/06/2024 1:41 AM EDT [facility] Potassium, Plasma 4.5 3.6 - 4.9 mmol/L 11/06/2024 1:41 AM EDT [facility] Chloride, Plasma 104 97 - 107 mmol/L 11/06/2024 1:41 AM EDT [facility] CO2, Plasma 22 22 - 29 mmol/L 11/06/2024 1:41 AM EDT [facility] Anion Gap 10 6 - 16 mmol/L 11/06/2024 1:41 AM EDT [facility] Total Calcium, Plasma 9.0 8.9 - 10.2 mg/dL 11/06/2024 1:41 AM EDT [facility] eGFRcr 92.3 mL/min/1.7 3m*2 11/06/2024 1:41 AM EDT [facility] Comment:Reported eGFRcr in m L/min/1.73m2 is based the CKD-EPI 2020 equation that does not use a race coefficient. Blood Venous blood specimen / Unknown Venipuncture / Unknown 11/06/2024 1:07 AM EDT 11/06/2024 1:12 AM EDT us Nathaly Nowak MD LAB BLOOD ORDERABLES Final Resu lt [facility] [address] [place] [address] * Phosphorus (11/06/2024 1:07 AM EDT) Phosphorus, Plasma 3.2 2.5 - 4.5 mg/dL 11/06/2024 1:41 AM EDT [facility] Blood Venous blood specimen / Unknown Venipuncture / Unknown 11/06/2024 1:07 AM EDT 11/06/2024 1:12 AM EDT us Nathaly Nowak MD LAB BLOOD ORDERABLES Final Resu lt Performing Organization Address City/[facility]/ZIP Co de Phone Number [facility] [address] [place] [address] * Magnesium (11/06/2024 1:07 AM EDT) Magnesium, Plasma 2.2 1.9 - 2.4 mg/dL 11/06/2024 1:41 AM EDT [facility] Blood Venous blood specimen / Unknown Venipuncture / Unknown 11/06/2024 1:07 AM EDT 11/06/2024 1:12 AM EDT us Nathaly Nowak MD LAB BLOOD ORDERABLES Final Resu lt Performing Organization Address [facility] Co de Phone Number [facility] [address] [place] [address] * (ABNORMAL) CBC (11/06/2024 1:07 AM EDT) WBC Count 9.70 3.70 - 10.30 10*3/uL LAB HEMATOLOGY METHOD 11/06/2024 1:19 AM EDT [facility] RBC Count 2.89(L) 4.60 - 6.10 10*6/uL LAB HEMATOLOGY METHOD 11/06/2024 1:19 AM EDT [facility] HGB 8.8(L) 13.7 - 17.5 g/dL LAB HEMATOLOGY METHOD 11/06/2024 1:19 AM EDT [facility] HCT 26.2(L) 40.0 - 51.0 % LAB HEMATOLOGY METHOD 11/06/2024 1:19 AM EDT [facility] Platelet Count 542(H) 155 - 369 10*3/uL LAB HEMATOLOGY METHOD 11/06/2024 1:19 AM EDT [facility] MCV 91 79 - 98 fL LAB HEMATOLOGY METHOD 11/06/2024 1:19 AM EDT [facility] MCH 30.4 26.0 - 32.0 pg LAB HEMATOLOGY METHOD 11/06/2024 1:19 AM EDT [facility] MCHC 33.6 30.7 - 35.5 g/dL LAB HEMATOLOGY METHOD 11/06/2024 1:19 AM EDT [facility] RDW 13.2 11.5 - 14.5 % LAB HEMATOLOGY METHOD 11/06/2024 1:19 AM EDT [facility] MPV 8.7(L) 8.8 - 12.5 fL LAB HEMATOLOGY METHOD 11/06/2024 1:19 AM EDT [facility] nRBC 0.0 <=0.0 per 100 WBCs LAB HEMATOLOGY METHOD 11/06/2024 1:19 AM EDT [facility] Blood Venous blood specimen / Unknown Venipuncture / Unknown 11/06/2024 1:07 AM EDT 11/06/2024 1:12 AM EDT us Nathaly Nowak MD LAB BLOOD ORDERABLES Final Resu lt Performing Organization Address City/[facility]/ZIP Co de Phone Number [facility] [address] [place] [address] * Gold Top (11/06/2024 12:58 AM EDT) Extra Hold for add-ons 11/06/2024 3:21 AM EDT [facility] Comment:Auto resulted. Blood Venous blood specimen / Unknown 11/06/2024 12:58 AM EDT 11/06/2024 1:13 AM EDT us Nathaly Nowak MD LAB BLOOD ORDERABLES Final Resu lt [facility] [address] [place] [address] * Gold Top (11/06/2024 12:58 AM EDT) Extra Hold for add-ons 11/06/2024 3:21 AM EDT [facility] Comment:Auto resulted. Blood Venous blood specimen / Unknown 11/06/2024 12:58 AM EDT 11/06/2024 1:13 AM EDT us Nathaly Nowak MD LAB BLOOD ORDERABLES Final Resu lt Performing Organization Address City/[facility]/ZIP Co de Phone Number [facility] [address] [place] [address] * Light Green Top (11/06/2024 12:58 AM EDT) Extra Hold for add-ons 11/06/2024 3:21 AM EDT [facility] Comment:Auto resulted. Blood Venous blood specimen / Unknown 11/06/2024 12:58 AM EDT 11/06/2024 1:13 AM EDT us Nathaly Nowak MD LAB BLOOD ORDERABLES Final Resu lt Performing Organization Address [facility] Co de Phone Number [facility] [address] [place] [address] * Light Blue Top (11/06/2024 12:58 AM EDT) Extra Hold for add-ons 11/06/2024 3:21 AM EDT [facility] Comment:Auto resulted. Blood Venous blood specimen / Unknown 11/06/2024 12:58 AM EDT 11/06/2024 1:13 AM EDT us Nathaly Nowak MD LAB BLOOD ORDERABLES Final Resu lt Performing Organization Address [facility]/ZIP Co de Phone Number [facility] [address] [place] [address] * Light Blue Top (11/06/2024 12:58 AM EDT) Extra Hold for add-ons 11/06/2024 3:21 AM EDT [facility] Comment:Auto resulted. Blood Venous blood specimen / Unknown 11/06/2024 12:58 AM EDT 11/06/2024 1:13 AM EDT us Nathaly Nowak MD LAB BLOOD ORDERABLES Final Resu lt [facility] [address] [place] [address] * (ABNORMAL) POCT glucose meter (11/06/2024 12:45 [...] Comment 11/06/2024 12:48 AM EDT [facility] Hammer Adjuster ID Raj Laird 11/07/19 12:48 AM EDT HEALTHCARE LAB Device ID [id number] 11/06/2024 12:48 AM EDT [facility]ALTH[facility]ARE LAB Specimen Type POC Capillary 11/06/2024 12:48 AM EDT [facility] Blood Capillary blood specimen / Unknown 11/06/2024 12:45 AM EDT 11/06/2024 12:48 AM EDT Nathaly Nowak MD LAB POINT OF CARE TE ST DOCKED DEVICE UNSOLICITED RESULTS Final Result [facility] [address] [place] [address] documented in this encounter Visit Diagnoses Diagnosis [...] Daily, First dose (after last modification) on Tu11/12/24 at 0900, Until Discontinued, Routine, Recovery(Phase II-Outpatient)/On [...] Oral, 3 times daily, First dose on Yadria 11/07/24 at 2000, Until Discontinued, Routine Given [...] Intravenous, Every 12 hours, First dose on [facility] [place] 11/09/24 at 1515, Until Discontinued, Routine Given 11/14/2024 2:42 PM EDT 10 mL Given 11/14/2024 3:03 AM EDT 10 mL Given 11/13/2024 4:43 PM EDT 10 mL Sodium Hypochlorite (Dakin's (HALF-Strength)) external solution 1 Application Irrigation, Daily, First dose on [facility] [place] 11/09/24 at 0945, Until Discontinued, Routine Given [...] refused) 0531 (Not Given - Provider: Jonathan aVle RN - Reason: Patient/family refused)1317 (Given - [...] Vale, CHRISTIAN) 203 (Given - Provider: Jonathan Vale, CHRISTIAN) insulin [...] on Mon11/14/24 at 1015, Until Discontinued, Routine 09 (Given [...] at 1305, Until Mon11/14/24 at 1402, Routine 140 (Given - Provid [...] documented as of this encounter Care Teams Geological Technical Officer Relationship Specialty Start Date End Date Asad Victor MD [address] [place] [address] PCP - General 10/07/22 documented as of this encounter
--- OUTSIDE RECORDS SUMMARY | 2024-11-06 10:08 | XMS_ITS | Encounter Summary ---
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 Detected 11/12/2024 2:47 PM EDT [facility] Enteropathogenic E. coli (EPEC) PCR Result [...] ORDE RABLES Final Result Performing Organization Address City/[facility]/ZIP Co de Phone Number [facility] [address] [place] [address] * C-reactive protein (11/12/2024 9:48 AM EDT) [facility] CRP, Plasma <3.0 <=8.0 mg/L 11/12/2024 10:28 AM EDT [facility] Blood Venous blood specimen / Unknown Venipuncture / Unknown 11/12/2024 9:48 AM EDT 11/12/2024 9:59 AM EDT [facility] - 11/12/2024 10:28 AM EDT This CRP test is appropriate for assessment of infection, systemic inflammation and/or tissue injury. To assess cardiovascular disease risk order high sensitivity CRP (CRPH). Nathaly Nowak MD LAB BLOOD ORDERABLES Final Resu lt Performing Organization Address [facility] Co de Phone Number [facility] [address] [place] [address] * (ABNORMAL) POCT glucose meter (11/12/2024 8:20 AM EDT) [facility] POCT Glucose 138(H) 74 - [...] 11/12/2024 8:21 AM EDT [facility] Log Carrier Operator ID Wade Feliciano 8:21 AM EDT HEALTHCARE LAB Device ID [id number] 11/12/2024 8:21 AM EDT [facility]ARE LAB Specimen Type POC Capillary 11/12/2024 8:21 AM EDT [facility] Blood Capillary blood specimen / Unknown 11/12/2024 8:20 AM EDT 11/12/2024 8:21 AM EDT Nathaly Nowak MD LAB POINT OF CARE TE ST DOCKED DEVICE UNSOLICITED RESULTS Final Result Performing Organization Address [facility] de Phone Number [facility] [address] [place] [address] * (ABNORMAL) POCT glucose meter (11/11/2024 8:18 [...] Comment 11/11/2024 8:20 PM EDT [facility]ALTHCARE LAB Log Carrier Operator ID Nelda Gerber 11/12/19 8:20 PM EDT [facility] Device ID [id number] 11/11/2024 8:20 PM EDT [facility] Specimen Type POC Capillary 11/11/2024 8:20 PM EDT [facility] Blood Capillary blood specimen / Unknown 11/11/2024 8:18 PM EDT 11/11/2024 8:20 PM EDT us Nathaly Nowak MD LAB POINT OF CARE TE ST DOCKED DEVICE UNSOLICITED RESULTS Final Result Performing Organization Address City/[facility] de Phone Number [facility]ARE [facility] [address] [place] [address] * (ABNORMAL) POCT glucose meter (11/11/2024 5:59 [...] Comment 11/11/2024 6:01 PM EDT [facility]ARE LAB Log Carrier Operator ID BradenWade 6:01 PM EDT HEALTHCARE LAB Device ID [id number] 11/11/2024 6:01 PM EDT HE[facility]ARE LAB Specimen Type POC Capillary 11/11/2024 6:01 PM EDT [facility] LAB Blood Capillary blood specimen / Unknown 11/11/2024 5:59 PM EDT 11/11/2024 6:01 PM EDT us Nathaly Nowak MD LAB POINT OF CARE TE ST DOCKED DEVICE UNSOLICITED RESULTS Final Result Performing Organization Address [facility] de Phone Number [facility]ARE LAB [address] [place] [address] * POCT glucose meter (11/11/2024 5:20 PM [...] Comment 11/11/2024 5:22 PM EDT [facility]ALTHCARE LAB Log Carrier Operator ID Wade Feliciano 5:22 PM EDT [facility] Device ID [id number] 11/11/2024 5:22 PM EDT [facility] Specimen Type POC Capillary 11/11/2024 5:22 PM EDT [facility] LAB Blood Capillary blood specimen / Unknown 11/11/2024 5:20 PM EDT 11/11/2024 5:22 PM EDT us Nathaly Nowak MD LAB POINT OF CARE TE ST DOCKED DEVICE UNSOLICITED RESULTS Final Result Performing Organization Address City/[facility] Co de Phone Number [facility] [address] [place] [address] * OR NEGATIVE PRESSURE WOUND THERAPY DME [...] glucose meter (11/11/2024 12:08 PM EDT) [facility] POCT Glucose 226(H) 74 - [...] Comment 11/11/2024 12:10 PM EDT HEALTHCARE LAB Log Carrier Operator ID Braden Wade Tobias 12:10 PM EDT [facility] Device ID [id number] 11/11/2024 12:10 PM EDT HEALTHCARE LAB Specimen Type POC Capillary 11/11/2024 12:10 PM EDT [facility]ARE LAB Blood Capillary blood specimen / Unknown 11/11/2024 12:08 PM EDT 11/11/2024 12:10 PM EDT Nathaly Nowak MD LAB POINT OF CARE TE ST DOCKED DEVICE UNSOLICITED RESULTS Final Result [facility] [address] [place] [address] * (ABNORMAL) POCT glucose meter (11/11/2024 9:08 [...] for testing. Comment 11/11/2024 9:09 AM EDT [facility] Log Carrier Operator ID Wade Feliciano 9:09 AM EDT [facility] Device ID [id number] 11/11/2024 9:09 AM EDT [facility] Specimen Type POC Capillary 11/11/2024 9:09 AM EDT [facility] Blood Capillary blood specimen / Unknown 11/11/2024 9:08 AM EDT 11/11/2024 9:09 AM EDT Nathaly Nowak MD LAB POINT OF CARE TE ST DOCKED DEVICE UNSOLICITED RESULTS Final Result [facility] [address] [place] [address] * POCT glucose meter (11/11/2024 8:27 AM [...] Comment 11/11/2024 8:28 AM EDT HEALTHCARE LAB Log Carrier Operator ID Wade Feliciano 8:28 AM EDT HEALTHCARE LAB Device ID [id number] 11/11/2024 8:28 AM EDT [facility]ALTH[facility]ARE LAB Specimen Type POC Capillary 11/11/2024 8:28 AM EDT [facility] LAB Blood Capillary blood specimen / Unknown 11/11/2024 8:27 AM EDT 11/11/2024 8:28 AM EDT us Nathaly Nowak MD LAB POINT OF CARE TE ST DOCKED DEVICE UNSOLICITED RESULTS Final Result [facility] [address] [place] [address] * (ABNORMAL) Basic Metabolic Panel, Plasma (11/11/2024 [...] lt [facility] [address] [place] [address] * (ABNORMAL) CBC W/O Differential (11/11/2024 12:56 [...] lt [facility] [address] [place] [address] * (ABNORMAL) POCT glucose meter (11/10/2024 8:25 [...] Comment 11/10/2024 8:28 PM EDT HEALTHCARE LAB Log Carrier Operator ID Nelda Gerber 11/11/19 8:28 PM EDT HEALTHCARE LAB Device ID [id number] 11/10/2024 8:28 PM EDT HEALTHCARE LAB Specimen Type POC Capillary 11/10/2024 8:28 PM EDT [facility] Blood Capillary blood specimen / Unknown 11/10/2024 8:25 PM EDT 11/10/2024 8:28 PM EDT us Nathaly Nowak MD LAB POINT OF CARE TE ST DOCKED DEVICE UNSOLICITED RESULTS Final Result [facility] [address] [place] [address] * (ABNORMAL) POCT glucose meter (11/10/2024 4:45 [...] Comment 11/10/2024 4:47 PM EDT HEALTHCARE LAB Log Carrier Operator ID Esperanza Parks 11/10/2024 4:47 PM EDT [facility] Device ID [id number] 11/10/2024 4:47 PM EDT HEALTHCARE LAB Specimen Type POC Capillary 11/10/2024 4:47 PM EDT [facility]ALTH[facility]ARE LAB Blood Capillary blood specimen / Unknown 11/10/2024 4:45 PM EDT 11/10/2024 4:47 PM EDT Nathaly Nowak MD LAB POINT OF CARE TE ST DOCKED DEVICE UNSOLICITED RESULTS Final Result Performing Organization Address City/State/[facility] Co de Phone Number [facility] [address] [place] [address] * (ABNORMAL) POCT glucose meter (11/10/2024 12:13 PM EDT) [facility] POCT Glucose 131(H) 74 - [...] Comment 11/10/2024 12:14 PM EDT HEALTHCARE LAB Log Carrier Operator ID Esperanza Parks 11/10/2024 12:14 PM EDT [facility] Device ID [id number] 11/10/2024 12:14 PM EDT [facility] Specimen Type POC Capillary 11/10/2024 12:14 PM EDT [facility]ALTH[facility]ARE LAB Blood Capillary blood specimen / Unknown 11/10/2024 12:13 PM EDT 11/10/2024 12:14 PM EDT us Nathaly Nowak MD LAB POINT OF CARE TE ST DOCKED DEVICE UNSOLICITED RESULTS Final Result Performing Organization Address [facility] Co de Phone Number [facility] [address] [place] [address] * Vancomycin, Peak, Plasma Please draw ~2 hours after 0800 dose of vancomycin finishes infusing. Consider obtaining level via peripheral stick. If peripheral stick is not feasible, please ensure that line is flushed well prior to drawing level. Than... (11/10/2024 10:56 AM EDT) [facility] Vancomycin, Peak, Plasma 23.8 20.0 [...] Res ult Performing Organization Address [facility] Co de Phone Number [facility] [address] [place] [address] * (ABNORMAL) POCT glucose meter (11/10/2024 8:03 AM EDT) [facility] POCT Glucose 174(H) 74 - 99 mg/dL 11/10/2024 8:04 AM EDT [facility] Comment:Accuracy of a glucos e result [...] testing. Comment 11/10/2024 8:04 AM EDT [facility] Log Carrier Operator ID Esperanza Parks 11/10/2024 8:04 AM EDT [facility] Device ID [id number] 11/10/2024 8:04 AM EDT HEALTHCARE LAB Specimen Type POC Capillary 11/10/2024 8:04 AM EDT [facility] Blood Capillary blood specimen / Unknown 11/10/2024 8:03 AM EDT 11/10/2024 8:04 AM EDT Nathaly Nowak MD LAB POINT OF CARE TE ST DOCKED DEVICE UNSOLICITED RESULTS Final Result Performing Organization Address [facility] Co de Phone Number [facility] [address] [place] [address] * Vancomycin, Trough, Plasma Please draw ~30 [...] ORDERABLES Final Res ult Performing Organization Address City/[facility]/ZIP Co de Phone Number [facility] [address] [place] [address] * (ABNORMAL) CBC and Differential (11/10/2024 12:31 [...] lt [facility] [address] [place] [address] * (ABNORMAL) Comprehensive Metabolic Panel, Plasma (11/10/2024 [...] lt [facility] [address] [place] [address] * (ABNORMAL) POCT glucose meter (11/09/2024 8:04 PM EDT) [facility] POCT Glucose 114(H) 74 - [...] Comment 11/09/2024 8:06 PM EDT HEALTHCARE LAB Log Carrier Operator ID Maximiliano Hansen II 11/09/2024 8:06 PM EDT HEALTHCARE LAB Device ID [id number] 11/09/2024 8:06 PM EDT HEALTHCARE LAB Specimen Type POC Capillary 11/09/2024 8:06 PM EDT HEALTHCARE LAB Blood Capillary blood specimen / Unknown 11/09/2024 8:04 PM EDT 11/09/2024 8:06 PM EDT Nathaly Nowak MD LAB POINT OF CARE TE ST DOCKED DEVICE UNSOLICITED RESULTS Final Result [facility] [address] [place] [address] * (ABNORMAL) POCT glucose meter (11/09/2024 4:36 PM EDT) [facility] POCT Glucose 166(H) 74 - [...] 11/09/2024 4:38 PM EDT [facility] Log Carrier Operator ID Kristian Sosa 11/09/2024 4:38 PM EDT [facility] Device ID [id number] 11/09/2024 4:38 PM EDT HEALTHCARE LAB Specimen Type POC Capillary 11/09/2024 4:38 PM EDT HEALTHCARE LAB Blood Capillary blood specimen / Unknown 11/09/2024 4:36 PM EDT 11/09/2024 4:38 PM EDT Nathaly Nowak MD LAB POINT OF CARE TE ST DOCKED DEVICE UNSOLICITED RESULTS Final Result Performing Organization Address City/State/[facility] Co de Phone Number [facility] [address] [place] [address] * PICC SINGLE LUMEN ([employer] L[employer]) (11/09/2024 1:11 PM EDT) Narrative Estefani Barraza RN - 11/09/2024 1:11 PM EDT Estefani Barraza RN 11/09/2024 1:12 PM Insert PICC line Date/Time: 11/09/2024 1:11 PM Performed by: Estefani Barraza RN Authorized by: Nathaly Nowak MD [place] Protocol: Verbal consent obtained?: Yes Written consent [...] selection rationale: Left pacemaker Catheter Lot #: [id number] 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 Comment 11/09/2024 11:51 AM EDT [facility] Log Carrier Operator ID Kristian Sosa 11/09/2024 11:51 AM EDT [facility] Device ID [id number] 11/09/2024 11:51 AM EDT [facility] Specimen Type POC Capillary 11/09/2024 11:51 AM EDT [facility] Blood Capillary blood specimen / Unknown 11/09/2024 11:50 AM EDT 11/09/2024 11:51 AM EDT Nathaly Nowak MD LAB POINT OF CARE TE ST DOCKED DEVICE UNSOLICITED RESULTS Final Result [facility] [address] [place] [address] * (ABNORMAL) POCT glucose meter (11/09/2024 8:14 [...] Comment 11/09/2024 8:15 AM EDT HEALTHCARE LAB Log Carrier Operator ID Kristian Sosa 11/09/2024 8:15 AM EDT HEALTHCARE LAB Device ID [id number] 11/09/2024 8:15 AM EDT HEALTHCARE LAB Specimen Type POC Capillary 11/09/2024 8:15 AM EDT [facility]ALTH[facility]ARE LAB Blood Capillary blood specimen / Unknown 11/09/2024 8:14 AM EDT 11/09/2024 8:15 AM EDT us Nathaly Nowak MD LAB POINT OF CARE TE ST DOCKED DEVICE UNSOLICITED RESULTS Final Result [facility] [address] [place] [address] * (ABNORMAL) CBC and Differential (11/09/2024 4:15 AM EDT) [facility] WBC Count 10.27 3.70 - [...] AM EDT 11/09/2024 4:18 AM EDT Narrative [facility] - 11/09/2024 4:26 AM EDT Therapeutic decision making should be based on absolute values, rather than percentages. us Nathaly Nowak MD LAB BLOOD ORDERABLES Final Resu lt [facility] [address] [place] [address] * (ABNORMAL) Comprehensive Metabolic Panel, Plasma (11/09/2024 [...] lt [facility] [address] [place] [address] * (ABNORMAL) POCT glucose meter (11/09/2024 3:30 AM EDT) POCT Glucose 160(H) 74 - 99 mg/dL 11/09/2024 3:31 AM EDT [facility] Comment:Accuracy of a glucos e result [...] testing. Comment 11/09/2024 3:31 AM EDT [facility] Log Carrier Operator ID Maximiliano Hansen II 11/09/2024 3:31 AM EDT HEALTHCARE LAB Device ID [id number] 11/09/2024 3:31 AM EDT HEALTHCARE LAB Specimen Type POC Capillary 11/09/2024 3:31 AM EDT HEALTHCARE LAB Blood Capillary blood specimen / Unknown 11/09/2024 3:30 AM EDT 11/09/2024 3:31 AM EDT Nathaly Nowak MD LAB POINT OF CARE TE ST DOCKED DEVICE UNSOLICITED RESULTS Final Result Performing Organization Address City/[facility] Co de Phone Number [facility] [address] [place] [address] * (ABNORMAL) POCT glucose meter (11/08/2024 7:21 [...] Comment 11/08/2024 7:22 PM EDT HEALTHCARE LAB Log Carrier Operator ID Maximiliano Hansen II 11/08/2024 7:22 PM EDT HEALTHCARE LAB Device ID [id number] 11/08/2024 7:22 PM EDT HEALTHCARE LAB Specimen Type POC Capillary 11/08/2024 7:22 PM EDT HEALTHCARE LAB Blood Capillary blood specimen / Unknown 11/08/2024 7:21 PM EDT 11/08/2024 7:22 PM EDT Nathaly Nowak MD LAB POINT OF CARE TE ST DOCKED DEVICE UNSOLICITED RESULTS Final Result Performing Organization Address City/[facility]/ZIP Co de Phone Number [facility] [address] [place] [address] * (ABNORMAL) POCT glucose meter (11/08/2024 5:12 PM EDT) [facility] POCT Glucose 178(H) 74 - [...] Comment 11/08/2024 5:14 PM EDT HEALTHCARE LAB Log Carrier Operator ID Estefani Sheth 11/08/2024 5:14 PM EDT HEALTHCARE LAB Device ID [id number] 11/08/2024 5:14 PM EDT HEALTHCARE LAB Specimen Type POC Capillary 11/08/2024 5:14 PM EDT [facility] Blood Capillary blood specimen / Unknown 11/08/2024 5:12 PM EDT 11/08/2024 5:14 PM EDT Nathaly Nowak MD LAB POINT OF CARE TE ST DOCKED DEVICE UNSOLICITED RESULTS Final Result Performing Organization Address City/State/[facility] Co de Phone Number HEALTHCARE LAB [address] [place] [address] * (ABNORMAL) POCT glucose meter (11/08/2024 12:03 PM EDT) [facility] POCT Glucose 191(H) 74 - [...] Comment 11/08/2024 12:05 PM EDT HEALTHCARE LAB Log Carrier Operator ID Estefani Sheth 11/08/2024 12:05 PM EDT HEALTHCARE LAB Device ID [id number] 11/08/2024 12:05 PM EDT HEALTHCARE LAB Specimen Type POC Capillary 11/08/2024 12:05 PM EDT [facility] Blood Capillary blood specimen / Unknown 11/08/2024 12:03 PM EDT 11/08/2024 12:05 PM EDT Nathaly Nowak MD LAB POINT OF CARE TE ST DOCKED DEVICE UNSOLICITED RESULTS Final Result Performing Organization Address [facility] Co de Phone Number [facility] [address] [place] [address] * Vancomycin, Peak, Plasma Please draw ~2 [...] Resu lt Performing Organization Address [facility] Phone Number [facility] [address] [place] [address] * (ABNORMAL) POCT glucose meter (11/08/2024 8:00 AM EDT) Pathologist [facility] POCT Glucose 150(H) 74 - 99 mg/dL 11/08/2024 8:01 AM EDT [facility] Comment:Accuracy of a glucos e result [...] 11/08/2024 8:01 AM EDT [facility] Log Carrier Operator ID Estefani Sheth 11/08/2024 8:01 AM EDT HEALTHCARE LAB Device ID [id number] 11/08/2024 8:01 AM EDT HEALTHCARE LAB Specimen Type POC Capillary 11/08/2024 8:01 AM EDT [facility]ALTH[facility]ARE LAB Blood Capillary blood specimen / Unknown 11/08/2024 8:00 AM EDT 11/08/2024 8:01 AM EDT us Nathaly Nowak MD LAB POINT OF CARE TE ST DOCKED DEVICE UNSOLICITED RESULTS Final Result [facility] [address] [place] [id number] * (ABNORMAL) CBC and Differential (11/08/2024 4:39 [...] [facility] Neutrophils % 69 % LAB [...] AM EDT 11/08/2024 4:49 AM EDT Narrative [facility] - 11/08/2024 4:58 AM EDT Therapeutic decision making should be based on absolute values, rather than percentages. us Nathaly Nowak MD LAB BLOOD ORDERABLES Final Resu lt [facility] [address] [place] [address] * (ABNORMAL) Comprehensive Metabolic Panel, Plasma (11/08/2024 [...] lt [facility] [address] [place] [address] * Vancomycin, Trough, Plasma Please draw ~30 [...] Performing Organization Address City/[facility]/ZIP Co de Phone Number [facility] [address] [place] [address] * (ABNORMAL) POCT glucose meter (11/07/2024 7:26 [...] PM EDT [facility] Log Carrier Operator ID Maximiliano Hansen II 11/07/2024 7:28 PM EDT [facility] Device ID [id number] 11/07/2024 7:28 PM EDT [facility] Specimen Type POC Capillary 11/07/2024 7:28 PM EDT [facility] Blood Capillary blood specimen / Unknown 11/07/2024 7:26 PM EDT 11/07/2024 7:28 PM EDT Nathaly Nowak MD LAB POINT OF CARE TE ST DOCKED DEVICE UNSOLICITED RESULTS Final Result Performing Organization Address City/[facility] Co de Phone Number [facility]ARE [facility] [address] [place] [address] * (ABNORMAL) POCT glucose meter (11/07/2024 5:51 [...] Comment 11/07/2024 5:52 PM EDT HEALTHCARE LAB Log Carrier Operator ID Brigitte Castellon 11/07/2024 5:52 PM EDT [facility] Device ID [id number] 11/07/2024 5:52 PM EDT [facility] Specimen Type POC Capillary 11/07/2024 5:52 PM EDT [facility]ALTH[facility]ARE LAB Blood Capillary blood specimen / Unknown 11/07/2024 5:51 PM EDT 11/07/2024 5:52 PM EDT us Nathaly Nowak MD LAB POINT OF CARE TE ST DOCKED DEVICE UNSOLICITED RESULTS Final Result Performing Organization Address City/[facility] Co de Phone Number [facility] [address] [place] [address] * (ABNORMAL) POCT glucose meter (11/07/2024 4:47 [...] Comment 11/07/2024 4:48 PM EDT HEALTHCARE LAB Log Carrier Operator ID Estefani Sheth 11/07/2024 4:48 PM EDT HEALTHCARE LAB Device ID [id number] 11/07/2024 4:48 PM EDT [facility]ALTH[facility]ARE LAB Specimen Type POC Capillary 11/07/2024 4:48 PM EDT [facility] Blood Capillary blood specimen / Unknown 11/07/2024 4:47 PM EDT 11/07/2024 4:48 PM EDT Nathaly Nowak MD LAB POINT OF CARE TE ST DOCKED DEVICE UNSOLICITED RESULTS Final Result Performing Organization Address City/[facility]/ZIP Co de Phone Number [facility]ARE [facility] [address] [place] [address] * (ABNORMAL) POCT glucose meter (11/07/2024 12:22 [...] Comment 11/07/2024 12:24 PM EDT HEALTHCARE LAB Log Carrier Operator ID Estefani Sheth 11/07/2024 12:24 PM EDT HEALTHCARE LAB Device ID [id number] 11/07/2024 12:24 PM EDT HEALTHCARE LAB Specimen Type POC Capillary 11/07/2024 12:24 PM EDT [facility] Blood Capillary blood specimen / Unknown 11/07/2024 12:22 PM EDT 11/07/2024 12:24 PM EDT us Nathaly Nowak MD LAB POINT OF CARE TE ST DOCKED DEVICE UNSOLICITED RESULTS Final Result Performing Organization Address City/State/[facility] Co de Phone Number [facility]ARE LAB [address] [place] [phone] * (ABNORMAL) CBC and Differential (11/07/2024 11:37 AM EDT) [facility] WBC Count 9.96 3.70 - [...] lt [facility] [address] [place] [address] * (ABNORMAL) Comprehensive Metabolic Panel, Plasma (11/07/2024 [...] lt [facility] [address] [place] [address] * Type and Screen (11/07/2024 11:37 AM [...] ORDERABLES F inal Result Performing Organization Address City/[facility] Co de Phone Number BLOOD BANK [address] * (ABNORMAL) POCT glucose meter (11/07/2024 [...] Comment 11/07/2024 10:36 AM EDT HEALTHCARE LAB Log Carrier Operator ID Joy Iraheta 11/07/2024 10:36 AM EDT HEALTHCARE LAB Device ID [id number] 11/07/2024 10:36 AM EDT [facility] Specimen Type POC Capillary 11/07/2024 10:36 AM EDT [facility] Blood Capillary blood specimen / Unknown 11/07/2024 10:34 AM EDT 11/07/2024 10:36 AM EDT Nathaly Nowak MD LAB POINT OF CARE TE ST DOCKED DEVICE UNSOLICITED RESULTS Final Result Performing Organization Address City/[facility]/ZIP Co de Phone Number [facility] [address] [place] [address] * (ABNORMAL) POCT glucose meter (11/07/2024 9:34 [...] Comment 11/07/2024 9:36 AM EDT HEALTHCARE LAB Log Carrier Operator ID Brigitte Castellon 11/07/2024 9:36 AM EDT HEALTHCARE LAB Device ID [id number] 11/07/2024 9:36 AM EDT [facility] Specimen Type POC Capillary 11/07/2024 9:36 AM EDT HEALTHCARE LAB Blood Capillary blood specimen / Unknown 11/07/2024 9:34 AM EDT 11/07/2024 9:36 AM EDT Nathaly Nowak MD LAB POINT OF CARE TE ST DOCKED DEVICE UNSOLICITED RESULTS Final Result Performing Organization Address City/State/[facility] Co de Phone Number [facility] [address] [place] [address] * (ABNORMAL) POCT glucose meter (11/07/2024 8:20 [...] Comment 11/07/2024 8:22 AM EDT HEALTHCARE LAB Log Carrier Operator ID Estefani Sheth 11/07/2024 8:22 AM EDT HEALTHCARE LAB Device ID [id number] 11/07/2024 8:22 AM EDT HEALTHCARE LAB Specimen Type POC Capillary 11/07/2024 8:22 AM EDT HEALTHCARE LAB Blood Capillary blood specimen / Unknown 11/07/2024 8:20 AM EDT 11/07/2024 8:22 AM EDT Nathaly Nowak MD LAB POINT OF CARE TE ST DOCKED DEVICE UNSOLICITED RESULTS Final Result Performing Organization Address City/[facility] Co de Phone Number HEALTHCARE LAB [address] [place] [address] * (ABNORMAL) POCT glucose meter (11/07/2024 7:21 [...] AM EDT [facility] Log Carrier Operator ID Brigitte Castellon 11/07/2024 7:22 AM EDT [employer] Device ID [id number] 11/07/2024 7:22 AM EDT [facility] Specimen Type POC Capillary 11/07/2024 7:22 AM EDT [facility] Blood Capillary blood specimen / Unknown 11/07/2024 7:21 AM EDT 11/07/2024 7:22 AM EDT Nathaly Nowak MD LAB POINT OF CARE TE ST DOCKED DEVICE UNSOLICITED RESULTS Final Result Performing Organization Address City/[facility] Co de Phone Number [facility] [address] [place] [address] * (ABNORMAL) POCT glucose meter (11/07/2024 6:25 [...] Comment 11/07/2024 6:27 AM EDT HEALTHCARE LAB Log Carrier Operator ID Nelda Gerber 11/08/19 6:27 AM EDT HEALTHCARE LAB Device ID [id number] 11/07/2024 6:27 AM EDT HEALTHCARE LAB Specimen Type POC Capillary 11/07/2024 6:27 AM EDT HEALTHCARE LAB Blood Capillary blood specimen / Unknown 11/07/2024 6:25 AM EDT 11/07/2024 6:27 AM EDT Nathaly Nowak MD LAB POINT OF CARE TE ST DOCKED DEVICE UNSOLICITED RESULTS Final Result Performing Organization Address City/[facility]/ZIP Co de Phone Number HEALTHCARE LAB [address] [place] [address] * (ABNORMAL) POCT glucose meter (11/07/2024 5:03 [...] Comment 11/07/2024 5:08 AM EDT HEALTHCARE LAB Log Carrier Operator ID Nelda Gerber 11/08/19 5:08 AM EDT HEALTHCARE LAB Device ID [id number] 11/07/2024 5:08 AM EDT HEALTHCARE LAB Specimen Type POC Capillary 11/07/2024 5:08 AM EDT HEALTHCARE LAB Blood Capillary blood specimen / Unknown 11/07/2024 5:03 AM EDT 11/07/2024 5:08 AM EDT Nathaly Nowak MD LAB POINT OF CARE TE ST DOCKED DEVICE UNSOLICITED RESULTS Final Result Performing Organization Address City/[facility]/ZIP Co de Phone Number HEALTHCARE LAB [address] [place] [address] * (ABNORMAL) POCT glucose meter (11/07/2024 4:16 AM EDT) Pathologist [facility] POCT Glucose 142(H) 74 - 99 mg/dL [...] Comment 11/07/2024 4:18 AM EDT HEALTHCARE LAB Log Carrier Operator ID Nelda Gerber 11/08/19 4:18 AM EDT [employer] LAB Device ID [id number] 11/07/2024 4:18 AM EDT [facility] Specimen Type POC Capillary 11/07/2024 4:18 AM EDT [employer] Blood Capillary blood specimen / Unknown 11/07/2024 4:16 AM EDT 11/07/2024 4:18 AM EDT us Nathaly Nowak MD LAB POINT OF CARE TE ST DOCKED DEVICE UNSOLICITED RESULTS Final Result Performing Organization Address City/State/[facility] Co de Phone Number HEALTHCARE LAB [address] [place] [address] * (ABNORMAL) POCT glucose meter (11/07/2024 3:21 [...] 11/07/2024 3:23 AM EDT [facility] Log Carrier Operator ID Nelda Gerber 11/08/19 3:23 AM EDT [facility] Device ID [id number] 11/07/2024 3:23 AM EDT [facility] Specimen Type POC Capillary 11/07/2024 3:23 AM EDT [facility] Blood Capillary blood specimen / Unknown 11/07/2024 3:21 AM EDT 11/07/2024 3:23 AM EDT Nathaly Nowak MD LAB POINT OF CARE TE ST DOCKED DEVICE UNSOLICITED RESULTS Final Result HEALTHCARE LAB [address] [place] [address] * (ABNORMAL) POCT glucose meter (11/07/2024 2:10 [...] for testing. Comment 11/07/2024 2:12 AM EDT [facility] Log Carrier Operator ID Nelda Gerber 11/08/19 25 2:12 AM EDT [facility] Device ID [id number] 11/07/2024 2:12 AM EDT [facility] Specimen Type POC Capillary 11/07/2024 2:12 AM EDT [facility] Blood Capillary blood specimen / Unknown 11/07/2024 2:10 AM EDT 11/07/2024 2:12 AM EDT Nathaly Nowak MD LAB POINT OF CARE TE ST DOCKED DEVICE UNSOLICITED RESULTS Final Result HEALTHCARE LAB [address] [place] [address] * (ABNORMAL) POCT glucose meter (11/07/2024 1:08 [...] Comment 11/07/2024 1:10 AM EDT HEALTHCARE LAB Log Carrier Operator ID Nelda Gerber 11/08/19 1:10 AM EDT HEALTHCARE LAB Device ID [id number] 11/07/2024 1:10 AM EDT HEALTHCARE LAB Specimen Type POC Capillary 11/07/2024 1:10 AM EDT HEALTHCARE LAB Blood Capillary blood specimen / Unknown 11/07/2024 1:08 AM EDT 11/07/2024 1:10 AM EDT us Nathaly Nowak MD LAB POINT OF CARE TE ST DOCKED DEVICE UNSOLICITED RESULTS Final Result Performing Organization Address City/State/[facility] Co de Phone Number HEALTHCARE LAB [address] [place] [address] * (ABNORMAL) POCT glucose meter (11/07/2024 12:10 [...] Comment 11/07/2024 12:13 AM EDT HEALTHCARE LAB Log Carrier Operator ID Nelda Gerber 11/08/19 12:13 AM EDT HEALTHCARE LAB Device ID [id number] 11/07/2024 12:13 AM EDT HEALTHCARE LAB Specimen Type POC Capillary 11/07/2024 12:13 AM EDT HEALTHCARE LAB Blood Capillary blood specimen / Unknown 11/07/2024 12:10 AM EDT 11/07/2024 12:13 AM EDT us Nathaly Nowak MD LAB POINT OF CARE TE ST DOCKED DEVICE UNSOLICITED RESULTS Final Result [facility]ALTHCARE LAB [address] [place] [address] * (ABNORMAL) POCT glucose meter (11/06/2024 11:14 PM EDT) Pathologist [facility] POCT Glucose 71(L) 74 - 99 mg/dL 11/06/2024 11:16 PM EDT [facility] Comment:Accuracy of a glucos e result [...] for testing. Comment 11/06/2024 11:16 PM EDT [facility] Log Carrier Operator ID Nelda Gerber 11/07/19 25 11:16 PM EDT [facility] Device ID [id number] 11/06/2024 11:16 PM EDT [facility] Specimen Type POC Capillary 11/06/2024 11:16 PM EDT [facility] Blood Capillary blood specimen / Unknown 11/06/2024 11:14 PM EDT 11/06/2024 11:16 PM EDT Nathaly Nowak MD LAB POINT OF CARE TE ST DOCKED DEVICE UNSOLICITED RESULTS Final Result HEALTHCARE LAB [address] [place] [address] * (ABNORMAL) POCT glucose meter (11/06/2024 10:07 [...] 11/06/2024 10:09 PM EDT [facility] Log Carrier Operator ID Nelda Gerber 11/07/19 10:09 PM EDT HEALTHCARE LAB Device ID [id number] 11/06/2024 10:09 PM EDT HEALTHCARE LAB Specimen Type POC Capillary 11/06/2024 10:09 PM EDT HEALTHCARE LAB Blood Capillary blood specimen / Unknown 11/06/2024 10:07 PM EDT 11/06/2024 10:09 PM EDT Nathaly Nowak MD LAB POINT OF CARE TE ST DOCKED DEVICE UNSOLICITED RESULTS Final Result Performing Organization Address City/[facility]/ZIP Co de Phone Number [facility] [address] [place] [address] * (ABNORMAL) POCT glucose meter (11/06/2024 8:22 [...] Comment 11/06/2024 8:25 PM EDT HEALTHCARE LAB Log Carrier Operator ID Nelda Gerber 11/07/19 8:25 PM EDT HEALTHCARE LAB Device ID [id number] 11/06/2024 8:25 PM EDT HEALTHCARE LAB Specimen Type POC Capillary 11/06/2024 8:25 PM EDT HEALTHCARE LAB Blood Capillary blood specimen / Unknown 11/06/2024 8:22 PM EDT 11/06/2024 8:25 PM EDT Nathaly Nowak MD LAB POINT OF CARE TE ST DOCKED DEVICE UNSOLICITED RESULTS Final Result Performing Organization Address City/[facility]/ZIP Co de Phone Number [facility] [address] [place] [address] * (ABNORMAL) POCT glucose meter (11/06/2024 7:31 PM EDT) [facility] POCT Glucose 359(H) 74 - [...] Comment 11/06/2024 7:32 PM EDT HEALTHCARE LAB Log Carrier Operator ID Nelda Gerber 11/07/19 7:32 PM EDT HEALTHCARE LAB Device ID [id number] 11/06/2024 7:32 PM EDT HEALTHCARE LAB Specimen Type POC Capillary 11/06/2024 7:32 PM EDT [facility] Blood Capillary blood specimen / Unknown 11/06/2024 7:31 PM EDT 11/06/2024 7:32 PM EDT Nathaly Nowak MD LAB POINT OF CARE TE ST DOCKED DEVICE UNSOLICITED RESULTS Final Result Performing Organization Address City/State/[facility] Co de Phone Number HEALTHCARE LAB [address] [place] [address] * (ABNORMAL) POCT glucose meter (11/06/2024 6:15 PM EDT) [facility] POCT Glucose 368(H) 74 - [...] Comment 11/06/2024 6:17 PM EDT HEALTHCARE LAB Log Carrier Operator ID Estefani Sheth 11/06/2024 6:17 PM EDT HEALTHCARE LAB Device ID [id number] 11/06/2024 6:17 PM EDT HEALTHCARE LAB Specimen Type POC Capillary 11/06/2024 6:17 PM EDT HEALTHCARE LAB Blood Capillary blood specimen / Unknown 11/06/2024 6:15 PM EDT 11/06/2024 6:17 PM EDT Nathaly Nowak MD LAB POINT OF CARE TE ST DOCKED DEVICE UNSOLICITED RESULTS Final Result Performing Organization Address City/[facility] Co de Phone Number HEALTHCARE LAB [address] [place] [address] * (ABNORMAL) POCT glucose meter (11/06/2024 4:57 [...] PM EDT [facility] Log Carrier Operator ID Estefani Sheth 11/06/2024 4:58 PM EDT HEALTHCARE LAB Device ID [id number] 11/06/2024 4:58 PM EDT [facility] Specimen Type POC Capillary 11/06/2024 4:58 PM EDT [facility] Blood Capillary blood specimen / Unknown 11/06/2024 4:57 PM EDT 11/06/2024 4:58 PM EDT Nathaly Nowak MD LAB POINT OF CARE TE ST DOCKED DEVICE UNSOLICITED RESULTS Final Result HEALTHCARE LAB [address] [place] [address] * (ABNORMAL) POCT glucose meter (11/06/2024 2:08 [...] Comment 11/06/2024 2:09 PM EDT HEALTHCARE LAB Log Carrier Operator ID Brigitte Castellon 11/06/2024 2:09 PM EDT HEALTHCARE LAB Device ID [id number] 11/06/2024 2:09 PM EDT HEALTHCARE LAB Specimen Type POC Capillary 11/06/2024 2:09 PM EDT HEALTHCARE LAB Blood Capillary blood specimen / Unknown 11/06/2024 2:08 PM EDT 11/06/2024 2:09 PM EDT Nathaly Nowak MD LAB POINT OF CARE TE ST DOCKED DEVICE UNSOLICITED RESULTS Final Result Performing Organization Address City/State/[facility] Co de Phone Number HEALTHCARE LAB [address] [place] [address] * (ABNORMAL) POCT glucose meter (11/06/2024 12:27 [...] Comment 11/06/2024 12:28 PM EDT HEALTHCARE LAB Log Carrier Operator ID Jacinta Galloway 11/06/2024 12:28 PM EDT HEALTHCARE LAB Device ID [id number] 11/06/2024 12:28 PM EDT HEALTHCARE LAB Specimen Type POC Capillary 11/06/2024 12:28 PM EDT HEALTHCARE LAB Blood Capillary blood specimen / Unknown 11/06/2024 12:27 PM EDT 11/06/2024 12:28 PM EDT Nathaly Nowak MD LAB POINT OF CARE TE ST DOCKED DEVICE UNSOLICITED RESULTS Final Result [facility] [address] [place] [address] * (ABNORMAL) Fungal Culture, Tissue and ISIDRO (11/06/2024 11:34 AM EDT) Culture Reading Mycological 4 Weeks Rare [place] Sana parapsilosis (A) 12/05/2024 8:36 AM EDT [facility] Comment: This isolate has been identified using the FDA Approved Pie Digitalyper [place] System The organism value for this [...] [facility] Final Result [facility] [address] [place] [address] * (ABNORMAL) Tissue Culture and Gram Stain (11/06/2024 11:34 AM EDT) Culture Moderate Growth 7:35 AM EDT [facility] Culture 2+ Enterobacter cloacae complex(A) ANGÉLICA 11/15/2024 7:35 AM EDT [facility] Comment: This isolate has been identified using the FDA Approved MALDI Philz Coffeeyper [place] System The organism value for this [...] by MALDI tof mass spectrometry using the Your Image [employer] database and is for research use only. [...] Final [facility] [address] [place] [address] * (ABNORMAL) Anaerobic Culture (11/06/2024 11:34 AM EDT) Culture No anaerobes isolated 11/14/2024 1:25 PM EDT [facility] Culture Staphylococcus pseudintermedius( A) 11/14/2024 1:25 PM EDT [facility] Comment: This result was determined by MALDI tof mass spectrometry using the Your Image [employer] database and is for research use only. [...] Final [facility] [address] [place] [address] * (ABNORMAL) Routine Culture and Gram Stain (11/06/2024 11:29 AM EDT) Culture Moderate Growth 5:29 PM EDT [facility] Culture Enterobacter cloacae complex(A) 11/08/2024 5:29 PM EDT [facility] Comment: This isolate has been identified using the FDA Approved [employer] System For susceptibility results refer to: - [id number] The organism value for this result has [...] ATIYA FRITZ Final Result Performing Organization Address [facility] Co de Phone Number [facility] [address] [place] [address] * Fungal Culture, Routine (11/06/2024 11:29 AM EDT) Culture No Fungal Growth at 1 Week 11/13/2024 8:29 AM EDT [facility] Swab Topography unknown / Unknown 11/06/2024 11:29 AM EDT 11/06/2024 12:19 PM EDT Comment:Pre-op diagnosis: Surgical wound infection [T81.49XA] us Nathaly Nowak MD LAB MICROBIOLOGY - GENERAL ORDE RABONEIDA Final Result Performing Organization Address [facility] Co de Phone Number [facility] [address] [place] [address] * (ABNORMAL) Anaerobic Culture (11/06/2024 11:29 AM EDT) Culture No anaerobes isolated 11/14/2024 1:25 PM EDT [facility] Culture Streptococcus mitis/oralis group(A) 11/14/2024 1:25 PM EDT [facility] Comment: This result was determined by MALDI tof mass spectrometry using the Your Image [employer] Brooke database and is for research use only. [...] has been identified using the FDA Approved Story[employer] CA System This is an appended report. [...] Edited Result - Final Performing Organization Address [facility]/ZIP Co de Phone Number [facility] [address] [place] [address] * Routine Culture and Gram Stain (11/06/2024 [...] ATIYA FRITZ Final Result Performing Organization Address [facility] Co de Phone Number [facility] [address] [place] [address] * Fungal Culture, Routine (11/06/2024 11:28 AM EDT) Culture No Fungal Growth at 1 Week 11/13/2024 8:29 AM EDT [facility] Swab Topography unknown / Unknown 11/06/2024 11:28 AM EDT 11/06/2024 12:20 PM EDT Comment:Pre-op diagnosis: Surgical wound infection [T81.49XA] Nathaly Nowak MD LAB MICROBIOLOGY - GENERAL ORDE LAM Final Result Performing Organization Address City/[facility]/ZIP Co de Phone Number [facility] [address] [place] [address] * Anaerobic Culture (11/06/2024 11:28 AM EDT) Culture No growth at day 4 11/13/2024 12:53 PM EDT [facility] Swab Topography unknown / Unknown 11/06/2024 11:28 AM EDT 11/06/2024 12:20 PM EDT Comment:Pre-op diagnosis: Surgical wound infection [T81.49XA] us Nathaly Nowak MD LAB MICROBIOLOGY - GENERAL [facility] Final Result Performing Organization Address City/[facility]/ZIP Co de Phone Number [facility] [address] [place] [address] * (ABNORMAL) POCT glucose meter (11/06/2024 10:16 AM EDT) [facility] POCT Glucose 194(H) 74 - [...] Comment 11/06/2024 10:18 AM EDT HEALTHCARE LAB Log Carrier Operator ID Lacy Griffin 11/07/19 10:18 AM EDT HEALTHCARE LAB Device ID [id number] 11/06/2024 10:18 AM EDT HEALTHCARE LAB Specimen Type POC Capillary 11/06/2024 10:18 AM EDT HEALTHCARE LAB Blood Capillary blood specimen / Unknown 11/06/2024 10:16 AM EDT 11/06/2024 10:18 AM EDT us Nathaly Nowak MD LAB POINT OF CARE TE ST DOCKED DEVICE UNSOLICITED RESULTS Final Result Performing Organization Address City/[facility]/ZIP Co de Phone Number HEALTHCARE LAB [address] [place] [address] * (ABNORMAL) POCT glucose meter (11/06/2024 5:58 [...] 11/06/2024 6:01 AM EDT [facility] Log Carrier Operator ID Raj Laird 11/07/19 6:01 AM EDT HEALTHCARE LAB Device ID [id number] 11/06/2024 6:01 AM EDT HEALTHCARE LAB Specimen Type POC Capillary 11/06/2024 6:01 AM EDT HEALTHCARE LAB Blood Capillary blood specimen / Unknown 11/06/2024 5:58 AM EDT 11/06/2024 6:01 AM EDT Nathaly Nowak MD LAB POINT OF CARE TE ST DOCKED DEVICE UNSOLICITED RESULTS Final Result HEALTHCARE LAB [address] [place] [address] * (ABNORMAL) POCT glucose meter (11/06/2024 5:36 AM EDT) [facility] POCT Glucose 202(H) 74 - [...] 11/06/2024 5:38 AM EDT [facility] Log Carrier Operator ID Shahid Sanches 11/06/2024 5:38 AM EDT [facility] Device ID [id number] 11/06/2024 5:38 AM EDT [facility] Specimen Type POC Capillary 11/06/2024 5:38 AM EDT HEALTHCARE LAB Blood Capillary blood specimen / Unknown 11/06/2024 5:36 AM EDT 11/06/2024 5:38 AM EDT us Nathaly Nowak MD LAB POINT OF CARE TE ST DOCKED DEVICE UNSOLICITED RESULTS Final Result Performing Organization Address City/[facility] Co de Phone Number [facility] [address] [place] [address] * (ABNORMAL) Hemoglobin A1c (11/06/2024 1:07 AM [...] Adults <6.0% Children and Adolescents <7.5% Source: [employer]. Standards of medical care in diabetes,2017. Diabetes Care.2017:40 (suppl 1):S1-S135. us Nathaly Nowak MD LAB BLOOD ORDERABLES Final Resu lt Performing Organization Address City/[facility] Co de Phone Number [facility] [address] [place] [address] * Blood Culture (Aerobic/Anaerobet Set) (11/06/2024 1:07 AM EDT) Culture No growth at day 5 11/11/2024 2:49 AM EDT [facility] Blood Structure of right hand / Unknown Venipuncture / Unknown 11/06/2024 1:07 AM EDT 11/06/2024 2:36 AM EDT us Nathaly Nowak MD LAB MICROBIOLOGY - GENERAL ORDE RABLES Final Result [facility] [address] [place] [address] * Blood Culture (Aerobic/Anaerobet Set) (11/06/2024 1:07 AM EDT) Pathologist [facility] Culture No growth at day 5 11/11/2024 3:01 AM EDT [facility] Blood Structure of antecubital vein / Unknown Venipuncture / Unknown 11/06/2024 1:07 AM EDT 11/06/2024 2:36 AM EDT us Nathaly Nowak MD LAB MICROBIOLOGY - GENERAL [facility] LAM Final Result [facility] [address] [place] [address] * (ABNORMAL) Basic metabolic panel (11/06/2024 1:07 [...] Performing Organization Address City/[facility]/ZIP Co de Phone Number [facility] [address] [place] [address] * Phosphorus (11/06/2024 1:07 AM EDT) Phosphorus, Plasma 3.2 2.5 - 4.5 mg/dL 11/06/2024 1:41 AM EDT [facility] Blood Venous blood specimen / Unknown Venipuncture / Unknown 11/06/2024 1:07 AM EDT 11/06/2024 1:12 AM EDT Nathaly Nowak MD LAB BLOOD ORDERABLES Final Resu lt Performing Organization Address [facility] Co de Phone Number [facility] [address] [place] [address] * Magnesium (11/06/2024 1:07 AM EDT) Magnesium, Plasma 2.2 1.9 - 2.4 mg/dL 11/06/2024 1:41 AM EDT [facility] Blood Venous blood specimen / Unknown Venipuncture / Unknown 11/06/2024 1:07 AM EDT 11/06/2024 1:12 AM EDT Nathaly Nowak MD LAB BLOOD ORDERABLES Final Resu lt Performing Organization Address City/[facility]/ZIP Co de Phone Number [facility] [address] [place] [address] * (ABNORMAL) CBC (11/06/2024 1:07 AM EDT) [facility] Signature WBC Count 9.70 3.70 - [...] lt [facility] [address] [place] [address] * Gold Top (11/06/2024 12:58 AM EDT) Extra Hold for add-ons 11/06/2024 3:21 AM EDT [facility] Comment:Auto resulted. Blood Venous blood specimen / Unknown 11/06/2024 12:58 AM EDT 11/06/2024 1:13 AM EDT us Nathaly Nowak MD LAB BLOOD ORDERABLES Final Resu lt [facility] [address] [place] [address] * Gold Top (11/06/2024 12:58 AM EDT) Extra Hold for add-ons 11/06/2024 3:21 AM EDT [facility] Comment:Auto resulted. Blood Venous blood specimen / Unknown 11/06/2024 12:58 AM EDT 11/06/2024 1:13 AM EDT us Nathaly Nowak MD LAB BLOOD ORDERABLES Final Resu lt Performing Organization Address City/[facility]/ZIP Co de Phone Number [facility] [address] [place] [address] * Light Green Top (11/06/2024 12:58 AM EDT) Extra Hold for add-ons 11/06/2024 3:21 AM EDT [facility] Comment:Auto resulted. Blood Venous blood specimen / Unknown 11/06/2024 12:58 AM EDT 11/06/2024 1:13 AM EDT us Nathaly Nowak MD LAB BLOOD ORDERABLES Final Resu lt Performing Organization Address City/[facility]/ZIP Co de Phone Number [facility] [address] [place] [address] * Light Blue Top (11/06/2024 12:58 AM EDT) Extra Hold for add-ons 11/06/2024 3:21 AM EDT [facility] Comment:Auto resulted. Blood Venous blood specimen / Unknown 11/06/2024 12:58 AM EDT 11/06/2024 1:13 AM EDT us Nathaly Nowak MD LAB BLOOD ORDERABLES Final Resu lt Performing Organization Address [facility] Co de Phone Number [facility] [address] [place] [address] * Light Blue Top (11/06/2024 12:58 AM EDT) Pathologist [facility] Extra Hold for add-ons 11/06/2024 3:21 AM EDT [facility] Comment:Auto resulted. Blood Venous blood specimen / Unknown 11/06/2024 12:58 AM EDT 11/06/2024 1:13 AM EDT Nathaly Nowak MD LAB BLOOD ORDERABLES Final Resu lt Performing Organization Address [facility] de Phone Number [facility] [address] [place] [address] * (ABNORMAL) POCT glucose meter (11/06/2024 12:45 AM EDT) Pathologist [facility] POCT Glucose 204(H) 74 - 99 mg/dL [...] 11/06/2024 12:48 AM EDT [facility] Log Carrier Operator ID Raj Laird 11/07/19 12:48 AM EDT [facility] Device ID [id number] 11/06/2024 12:48 AM EDT [facility] Specimen Type POC Capillary 11/06/2024 12:48 AM EDT [facility] Blood Capillary blood specimen / Unknown 11/06/2024 12:45 AM EDT 11/06/2024 12:48 AM EDT Nathaly Nowak MD LAB POINT OF CARE TE ST DOCKED DEVICE UNSOLICITED RESULTS Final Result [facility] [address] [place] [address] documented in this encounter Visit Diagnoses Diagnosis [...] Starting on Mon11/06/24 at [address], [address] [facility] 11/14/24 at 1804, Routine, line care [...] Starting on Mon11/06/24 at [address], [address] [facility] 11/14/24 at 1804, Routine, On Unit [...] Devora Bo) 0839 (Given - Provider: Devora oB)1226 (Not Given - Provider: Devora Bo - [...] Until Discontinued, Routine 0222 (Given - Provider: Jonatahn Vale RN)1750 (Given - Provider: Devora Bo) [...] documented as of this encounter Care Teams Financial Professional Relationship Specialty Start Date End Date Asad Victor MD [address] [place] [address] PCP - General 10/07/22 documented as of this encounter
--- OUTSIDE RECORDS SUMMARY | 2024-11-06 10:47 | XMS_ITS | Encounter Summary ---
Author Organization Healthcare Address [address] [place] [address] Care Team Providers Care Delivery And Mail Sorter Name Role Phone Asad Victor MD Primary Care Provider + [phone] Reason for Visit * Auth/Cert (Routine) Specialty Diagnoses / Procedures Referred By Contac t Referred To Contact Diagnoses Wound infection Post-op Vasc Sx wounds - sx on 10/17 at Nathaly Nowak MD [address] [facility] [address] [place] [address] Phone: tel: fax: [facility] Emergency Department [address] [place] [address] Phone: tel: Referral ID Status Reason Start Date Expiration Date Visits Re quested Visits Authorized [id number] 1 1 Encounter Details Date Type Department Care Team (Late st Contact Info) Description 11/06/2024 10:47 AM EDT Anesthesia Event [facility] OPERATING ROOM [address] [place] [address] Bill Sue MD [address] [place] [address] Sabrina Mckeon PA [address] [facility] [address] [place] [address] Anesthesia Record Procedure Summary Procedure [...] drink first t dino in the morning (EYE-BARK TANNER) to steady your nerves or to get rid of a hangover? 0 10/18/2021 CAGE Questionnaire Score 0 022 Utilities Answer Date Recorded In the past 12 months has th e [employer], gas, oil, or water company threatened to [...] and Staff Patient location during procedure: OR COMMUTER TRAIN OPERATOR: Asad Lechuga CRNA, DNP Performed: COMMUTER TRAIN OPERATOR Patient Condition Indications for airway management: [...] / [place] OR Surgeons: Nathaly Nowak MD [facility] Mono Bobby is a 64 y.o. [...] Abnormal Ventricular Rate 85 Atrial Rate 85 [place] Interval 146 QRSD Interval 128 QT Interval 390 QTC Interval 464 P [place] 52 R [place] 263 T Wave [place] 57 Diagnosis Atrial-sensed ventricular-paced rhythm Diagnosis Biventricular [...] is no recent study available for direct jicm-wx-kqnp comparison. [facility]: Pre-operative CIED Report Assessment and Sara- Procedural Reommendations: Name: Mono Bobby Date: 10/17/2024 : 1960 Age: 64 y.o. Patient has a Drainman: Berger ALUMINUM POLISHER-PM Remaining battery longevity adequate. Lead integrity test [...] CEA 2016), dysrhythmias (3rd degree AV block ALUMINUM POLISHER-P placed 08/2023 for Wen[place] with 11 sec pause), hyperlipidemia, pacemaker and PVD. Does not have angina, CHF, murmur, orthopnea, syncope or valvular heart disease. hypertension: Cardio additional comments: Follows with OSH Card last seen 09/25/24 ([place]) . Respiratory: home oxygen (2L). no asthma: [...] ENDARTERECTOMY N/A 2017 Endarterectomy Carotid Artery from [facility] CORONARY ANGIOPLASTY Left Coronary Angiography With Concomitant Left Heart Catheterization from [facility] CORONARY ARTERY BYPASS GRAFT N/A 2018 3V ELBOW SURGERY Right ENDARTERECTOMY Left 10/17/2024 common/SFA/Profunda thromboendarterectomy, EIA/[facility] stent HERNIA REPAIR KNEE ARTHROSCOPY Left VASCULAR SURGERY Left 09/21/2024 [facility] pseudoaneurym injection [5] Social History Tobacco Use [...] EDT Office Visit [facility] [address] [facility] [place] [address] Oscar Appiah MD [address] [facility] [address] [place] [address] 12/19/2024 7:30 AM EDT Appointment [facility] Vascular Lab [address] [facility] 5th Floor [address] [place] [address] 12/19/2024 8:00 AM EDT Appointment [facility] Vascular Lab [address] [facility] 5th Floor [address] [place] [address] 12/19/2024 9:00 AM EDT Office Visit [facility] [address] [place] [address] Nathaly Nowak MD [address] [place] [address] documented as of this encounter Goals Goal Patient Goal Type Associated Problems Recent Progress Patient-Stated? Author Autogenera louise Goal Care Plan Autogenerated Problem No Ekta Arnett documented as of this encounter Procedures Procedure Name Priority Date/Time Associated Diagnosis Comments PB ANESTHESIA PLACEHOLDER Routine 11/06/2024 10:58 AM EDT [place] AN ELECTIVE ENDOTRACHEAL AIRWAY Routine 11/06/2024 10:58 AM EDT documented in this encounter Results * [place] AN ELECTIVE ENDOTRACHEAL AIRWAY, PB ANESTHESIA PLACEHOLDER (11/06/2024 10:58 AM EDT) Narrative Asad Lechuga CRNA, DNP - 11/06/2024 10:58 AM EDT Asad Lechuga CRNA, DNP 11/06/2024 11:05 AM Airway Date/Time: 11/06/2024 10:58 AM Reason: elective Airway not difficult General Information and Staff Patient location during procedure: OR COMMUTER TRAIN OPERATOR: Asad Lechuga CRNA, DNP Performed: ISH Patient [...] documented as of this encounter Care Teams Delivery And Mail Sorter Relationship Specialty Start Date End Date Asad Victor MD [address] [place] [address] PCP - General 10/07/22 documented as of this encounter
--- OUTSIDE RECORDS SUMMARY | 2024-11-18 13:10 | XMS_ITS | Encounter Summary ---
Author Organization [employer] ([place], [place], [place], [place]) Address [address] [place] [address] Care Team Providers Care Clinic Licensed Practical Nurse Name Role Phone Unavailable Primary Care Provider Unavailabl e Reason for Visit * Reason Comments Wound Care Encounter Details Date Type Department Care Team (Late st Contact Info) Description 11/18/2024 1:10 PM EDT Office Visit [facility] 1 [place] [address] Jerry Monroe Jr., MD [address] [place] [address] Non-pressure chronic ulcer of skin of [...] health nurse( if you have home health) [facility] for an appointment. documented in this [...] upper leg. Patient was admitted to the [facility] on November 05, 2024 and dischargedon [...] line. Patient is getting daily infusions at [facility] through his PICC line for antibiotics. [...] provider verified the correct patient, procedure, equipment, business support manager, and site/side marked as required. Debridement Details [...] provider verified the correct patient, procedure, equipment, business support manager, and site/side marked as required. 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) Localized tissue (HCC) Other specified local infections of the skin and subcutaneous tissue [place] DEBRIDEMENT MUSCLE &/FASCIA EA ADDL 20 SQ CM Routine 11/18/2024 1:10 PM EDT 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) Localized tissue (HCC) Other specified local infections of the skin and subcutaneous tissue [place] DEBRIDEMENT MUSCLE &/FASCIA 1ST 20 SQ CM/< Routine 11/18/2024 1:10 PM EDT 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) Localized tissue (HCC) Other specified local infections of the skin and subcutaneous tissue [place] DEBRIDEMENT MUSCLE &/FASCIA EA ADDL 20 SQ CM Routine 11/18/2024 1:10 PM EDT 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) Localized tissue (HCC) Other specified local infections of the skin and subcutaneous tissue [place] DEBRIDEMENT MUSCLE &/FASCIA EA ADDL 20 SQ CM Routine 11/18/2024 1:10 PM EDT 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) Localized tissue (HCC) Other specified local infections of the skin and subcutaneous tissue [place] DEBRIDEMENT MUSCLE &/FASCIA 1ST 20 SQ CM/< Routine 11/18/2024 1:10 PM EDT 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 Debridement Details [...] MD PROCEDURE/MINOR SURGICAL ORDERABLES Final Result * [place] DEBRIDEMENT MUSCLE &/FASCIA 1ST 20 SQ CM/<, [place] DEBRIDEMENT MUSCLE &/FASCIA EA ADDL 20SQ CM, [place] DEBRIDEMENT MUSCLE &/FASCIA EA ADDL 20 SQ [...] provider verified the correct patient, procedure, equipment, business support manager, and site/side marked as required. Debridement Details [...]
--- OUTSIDE RECORDS SUMMARY | 2024-11-20 14:15 | XMS_ITS | Encounter Summary ---
Author Organization [employer] ([place], [place], [place], [place]) Address [address] [place] [address] Care Team Providers Care Business Operations Specialist Name Role Phone Unavailable Primary Care Provider Unavailabl e Reason for Visit * Reason Comments Wound Care Nurse visit for woun d vac change, wound care and dressing change Encounter Details Date Type Department Care Team (Late st Contact Info) Description 11/20/2024 2:15 PM EDT Clinical Support [facility] 1 [place] [address] Jerry Monroe Jr., MD [address] [place] [address] Non-pressure chronic ulcer of skin of [...] Description 12/13/2024 3:30 PM EDT Clinical Support [facility] [place] 1 [place] [address] 12/16/2024 3:30 PM EDT Clinical Support [facility] 1 [place] [address] 12/18/2024 3:00 PM EDT Office Visit [address] [address] Jerry Monroe Jr., MD [address] [place] [address] 12/20/2024 3:30 PM EDT Clinical Support [facility] 1 [place] [address] documented as of this encounter Results * Wound Treatment (11/22/2024 5:14 PM EDT) us Jerry Monroe Jr., MD NURSING PATHWAYS ORDERABL ES Final Result documented in this encounter Visit Diagnoses Diagnosis 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
--- OUTSIDE RECORDS SUMMARY | 2024-11-22 16:15 | XMS_ITS | Encounter Summary ---
Author Organization [employer] ([place], [place], [place], [place]) Address [address] [place] [address] Care Team Providers Care Cloud Architect Name Role Phone Unavailable Primary Care Provider Unavailabl e Reason for Visit * Reason Comments Wound Care Encounter Details Date Type Department Care Team (Late st Contact Info) Description 11/22/2024 4:15 PM EDT Clinical Support [facility] 1 [place] [address] Jerry Monroe Jr., MD [address] [place] [address] Non-pressure chronic ulcer of skin of [...] Description 12/13/2024 3:30 PM EDT Clinical Support [facility] [place] 1 [place] [address] 12/16/2024 3:30 PM EDT Clinical Support [facility] 1 [place] [address] 12/18/2024 3:00 PM EDT Office Visit [facility]ound [facility] [place] 1 [place] [address] Jerry Monroe Jr., MD [address] [place] [address] 12/20/2024 3:30 PM EDT Clinical Support [facility] 1 [place] [address] documented as of this encounter Procedures Procedure [...]
--- OUTSIDE RECORDS SUMMARY | 2024-11-27 14:20 | XMS_ITS | Encounter Summary ---
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) Procedures Wound Treatment Jerry Monroe Jr., MD [address] [place] [address] Phone: tel: fax: Referral ID Status Reason Start Date Expiration Date V isits Requested Visits Authorized [id number] New Request 11/27/2024 11/27/2025 3 3 Reason for Visit * Reason Comments Wound Care Encounter Details Date Type Department Care Team (Late st Contact Info) Description 11/27/2024 2:20 PM EDT Office Visit [facility] [address] [place] [address] Jerry Monroe Jr., MD [address] [place] [address] Non-pressure chronic ulcer of skin of [...] Patient was admitted to the [facility] on November 05, 2024 and dischargedon [...] line. Patient is getting daily infusions at [facility] through his PICC line for [...] the correct patient, procedure, equipment, operations support coordinator, and site/side marked as required. Debridement Details [...] the correct patient, procedure, equipment, operations support coordinator, and site/side marked as required. Debridement Details [...] Description 12/13/2024 3:30 PM EDT Clinical Support [facility] 1 [place] [address] 12/16/2024 3:30 PM EDT Clinical Support [facility] [address] [place] [address] 12/18/2024 3:00 PM EDT Office Visit [facility] [address] [place] [phone] Jerry Monroe Jr., MD [address] [place] [address] 12/20/2024 3:30 PM EDT Clinical Support [facility] [address] [place] [phone] documented as of this encounter Procedures Procedure Name Priority Date/Time Associated Diagnosis Comments OK DEBRIDEMENT MUSCLE &/FASCIA EA ADDL 20 [...] tissue documented in this encounter Results * [place] DEBRIDEMENT MUSCLE &/FASCIA 1ST 20 [...] the correct patient, procedure, equipment, operations support coordinator, and site/side marked as required. Debridement Details [...] the correct patient, procedure, equipment, operations support coordinator, and site/side marked as required. Debridement Details [...]
--- OUTSIDE RECORDS SUMMARY | 2024-11-29 16:00 | XMS_ITS | Encounter Summary ---
Author Organization [employer] ([place], [place], [place], [place]) Address [address] [place] [address] Care Team Providers Care Ammonia Refrigeration Worker Name Role Phone Unavailable Primary Care Provider Unavailabl e Reason for Visit * Reason Comments Wound Care Encounter Details Date Type Department Care Team (Late st Contact Info) Description 11/29/2024 4:00 PM EDT Clinical Support [facility] 1 [place] [address] Jerry Monroe Jr., MD [address] [place] [address] Social History Tobacco Use Types Packs/Day [...] Description 12/13/2024 3:30 PM EDT Clinical Support [facility] 1 [place] [address] 12/16/2024 3:30 PM EDT Clinical Support [address] [address] 12/18/2024 3:00 PM EDT Office Visit [facility] 1 [place] [address] Jerry Monroe Jr., MD [address] [place] [address] 12/20/2024 3:30 PM EDT Clinical Support [facility] 1 [place] [address] documented as of this encounter Visit Diagnoses Not on filedocumented in this encounter
--- OUTSIDE RECORDS SUMMARY | 2024-12-02 14:15 | XMS_ITS | Encounter Summary ---
Author Organization [employer] ([place], [place], [place], [place]) Address [address] [place] [address] Care Team Providers Care Corrugator Machine Operator Name Role Phone Unavailable Primary Care Provider Unavailabl e Reason for Visit * Reason Comments Wound Care Nurse visit for woun d vac and dressing change, wound care Encounter Details Date Type Department Care Team (Late st Contact Info) Description 12/02/2024 2:15 PM EDT Clinical Support [facility] 1 [place] [address] Jerry Monroe Jr., MD [address] [place] [address] Non-pressure chronic ulcer of skin of [...] Description 12/13/2024 3:30 PM EDT Clinical Support [facility] [employer] 1 [place] [address] 12/16/2024 3:30 PM EDT Clinical Support [facility] [employer] 1 [place] [address] 12/18/2024 3:00 PM EDT Office Visit [facility] [employer] 1 [place] [address] Jerry Monroe Jr., MD [address] [place] [address] 12/20/2024 3:30 PM EDT Clinical Support [facility] 1 [place] [address] documented as of this encounter Visit Diagnoses Diagnosis 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
--- OUTSIDE RECORDS SUMMARY | 2024-12-04 13:40 | XMS_ITS | Encounter Summary ---
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) Procedures Wound Treatment Jerry Monroe Jr., MD [address] [place] [address] Phone: tel: fax: Referral ID Status Reason Start Date Expiration Date V isits Requested Visits Authorized [id number] Pending Review 12/04/2024 12/04/2025 3 3 Reason for Visit * Reason Comments Wound Care Encounter Details Date Type Department Care Team (Late st Contact Info) Description 12/04/2024 1:40 PM EDT Office Visit [facility] 1 [place] [address] Jerry Monroe Jr., MD [address] [place] [address] Non-pressure chronic ulcer of skin of [...] Non-staged Wound Description Full thickness * Jerry Monore Jr., MD - 12/04/2024 1:40 PM EDTAssociated [...] line. Patient is getting daily infusions at [facility] through his PICC line for [...] Description 12/13/2024 3:30 PM EDT Clinical Support [facility] 1 [place] [phone] 12/16/2024 3:30 PM EDT Clinical Support [facility] 1 [place] [address] 12/18/2024 3:00 PM EDT Office Visit [facility] 1 [place] [address] Jerry Monroe Jr., MD [address] [place] [address] 12/20/2024 3:30 PM EDT Clinical Support [facility] 1 [place] [address] documented as of this encounter Procedures Procedure [...]
--- OUTSIDE RECORDS SUMMARY | 2024-12-09 15:30 | XMS_ITS | Encounter Summary ---
Author Organization [employer] ([place], [place], [place], [place]) Address [address] [place] [address] Care Team Providers Care Director Of Financial Planning Name Role Phone Unavailable Primary Care Provider Unavailabl e Reason for Visit * Reason Comments Wound Care Encounter Details Date Type Department Care Team (Late st Contact Info) Description 12/09/2024 3:30 PM EDT Clinical Support [facility] 1 [place] [address] eJrry Monroe Jr., MD [address] [place] [address] Non-pressure chronic ulcer of skin of [...] Description 12/13/2024 3:30 PM EDT Clinical Support [facility] Care [address] [address] 12/16/2024 3:30 PM EDT Clinical Support [address] [address] 12/18/2024 3:00 PM EDT Office Visit [address] [address] Jerry Monroe Jr., MD [address] [place] [address] 12/20/2024 3:30 PM EDT Clinical Support [address] [address] documented as of this encounter Procedures Procedure [...]
--- OUTSIDE RECORDS SUMMARY | 2024-12-11 14:40 | XMS_ITS | Encounter Summary ---
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) Procedures Wound Treatment Jerry Monroe Jr., MD [address] [place] [address] Phone: tel: fax: Referral ID Status Reason Start Date Expiration Date V isits Requested Visits Authorized [id number] New Request 12/11/2024 12/11/2025 1 1 Reason for Visit * Reason Comments Wound Care Encounter Details Date Type Department Care Team (Late st Contact Info) Description 12/11/2024 2:40 PM EDT Office Visit [facility] 1 [place] [address] Jerry Monroe Jr., MD [address] [place] [address] Non-pressure chronic ulcer of skin of [...] the correct patient, procedure, equipment, technical support 1 software engineer, and site/side marked as required. Debridement [...] the correct patient, procedure, equipment, technical support 1 software engineer, and site/side marked as required. 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) SD DEBRIDEMENT MUSCLE &/FASCIA EA ADDL 20 SQ CM Routine 12/11/2024 2:40 PM EDT 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) Localized tissue (HCC) Other specified local infections of the skin and subcutaneous tissue SD DEBRIDEMENT MUSCLE &/FASCIA 1ST 20 SQ CM/< Routine 12/11/2024 2:40 PM EDT 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) Localized tissue (HCC) Other specified local infections of the skin and subcutaneous tissue SD DEBRIDEMENT MUSCLE &/FASCIA EA ADDL 20 SQ CM Routine 12/11/2024 2:40 PM EDT 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) Localized tissue (HCC) Other specified local infections of the skin and subcutaneous tissue SD DEBRIDEMENT MUSCLE &/FASCIA 1ST 20 SQ CM/< Routine 12/11/2024 2:40 PM EDT 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 Debridement [...] MD PROCEDURE/MINOR SURGICAL ORDERABLES Final Result * SD DEBRIDEMENT MUSCLE &/FASCIA 1ST 20 SQ CM/<, SD DEBRIDEMENT MUSCLE &/FASCIA EA ADDL 20SQ CM [...] the correct patient, procedure, equipment, technical support 1 software engineer, and site/side marked as required. Debridement [...]
--- OUTSIDE RECORDS SUMMARY | 2024-12-13 08:11 | XMS_ITS | Encounter Summary ---
Author Organization Healthcare Address [address] [place] [address] Care Team Providers Care Locomotive Operator Helper Name Role Phone Asad Victor MD Primary Care Provider + [phone] Encounter Details Date Type Department Care Team (Late st Contact Info) Description 12/04/2024 Telephone [place] [facility] [address] [facility] 5th Floor Wing [address], [address] [place] [address] Nathaly Nowak MD [address] [facility] [address] [place] [address] Social History Tobacco Use Types [...] drink first t dino in the morning (EYE-ALLERGY NURSE) to steady your nerves or to get rid of a hangover? 0 10/18/2021 CAGE Questionnaire Score 0 022 Utilities Answer Date Recorded In the past 12 months has th e [employer], gas, oil, or water company threatened to [...] EDT Returned phone call to Judy at [facility]. Patient previously stated that he is receiving wound care at [facility]. We unfortunately do not have these records at this time, we have sent two requests and are awaiting them at this time. Patient has not yet been seen in clinic for his post-operative appointment. * Telephone Encounter - Clare Fleming - 12/04/2024 11:35 AM EDT Clinical Concern/Question Reason for Call: judy at [facility] calling for wound measurements for wound vac. Please call Best contact number: Other: [phone] Optimal time of day to reach caller: [...] PM EDT Office Visit [facility] [address] [place] [address] Oscar Appiah MD [address] [facility] [address] [place] [address] 12/19/2024 7:30 AM EDT Appointment [facility] [address] 5th Floor Wing [address], [address] [place] [address] 12/19/2024 8:00 AM EDT Appointment [facility] [address] [facility] 5th Floor [address], [address] [place] [address] 12/19/2024 9:00 AM EDT Office Visit [facility] [address] [facility] 5th Floor [address], [address] [place] [address] Nathaly Nowak MD [address] [facility] [address] [place] [address] documented as of this encounter [...] documented as of this encounter Care Teams Locomotive Operator Helper Relationship Specialty Start Date End Date Asad Victor MD [address] [place] [address] PCP - General 10/07/22 documented as of this encounter
--- OUTSIDE RECORDS SUMMARY | 2024-12-13 08:19 | XMS_ITS | Encounter Summary ---
Author Organization [employer] ([place], [place], [place], [place]) Address [address] [place] [address] Care Team Providers Care Cloth Printing Back Tender Name Role Phone Unavailable Primary Care [...] Description 12/13/2024 3:30 PM EDT Clinical Support [facility] [place] [address] [place] [address] 12/16/2024 3:30 PM EDT Clinical Support [facility] [place] [address] [place] [address] 12/18/2024 3:00 PM EDT Office Visit [facility] 1 [place] [address] Jerry Monroe Jr., MD [address] [place] [address] 12/20/2024 3:30 PM EDT Clinical Support [facility] 1 [place] [address] documented as of this encounter Visit Diagnoses Not on filedocumented in this encounter
[2024-12-13 08:20] VITALS: BP 128/60; PULSE 68; RESP 20; TEMP 36.6; O2SAT 98
[2024-12-13] MEDS: MICAFUNGIN SODIUM IV (08:20)
[2024-12-13] MEDS: SODIUM CHLORIDE 0.9% IV (08:20)
[2024-12-13] MEDS: SODIUM CHLORIDE 0.9% 10ML FLUSH SYRINGE 10 ML IV (08:20)
--- OUTSIDE RECORDS SUMMARY | 2024-12-13 08:21 | XMS_ITS | Encounter Summary ---
Author Organization [employer] ([place], [place], [place], [place]) Address [address] [place] [address] Care Team Providers Care Reconcilement Clerk Name Role Phone Unavailable Primary Care [...] Description 12/13/2024 3:30 PM EDT Clinical Support [facility] [place] [address] [place] [address] 12/16/2024 3:30 PM EDT Clinical Support [facility] [place] [address] [place] [address] 12/18/2024 3:00 PM EDT Office Visit [facility] 1 [place] [address] Jerry Monroe Jr., MD [address] [place] [address] 12/20/2024 3:30 PM EDT Clinical Support [facility] [address] [place] [address] documented as of this encounter Visit Diagnoses Not on filedocumented in this encounter
--- OUTSIDE RECORDS SUMMARY | 2024-12-13 08:23 | XMS_ITS | Encounter Summary ---
Author Organization Healthcare Address [address] [id number] Care Team Providers Care It Application Administrator Name Role Phone Asad Victor MD Primary Care Provider + [phone] Reason for Visit * Reason Onset Date Comments [facility] Clinical Concern/Question 11/15/2024 Encounter Details Date Type Department Care Team (Late st Contact Info) Description 11/15/2024 Telephone [place] [facility] [address] [facility] 5th Floor [address] [place] [address] Nathaly Nowak MD [address] [facility] [address] [place] [address] [facility] Clinical Concern/Question Social History [...] drink first t dino in the morning (EYE-WET PAN MIXER) to steady your nerves or to [...] has been receiving his wound care through [facility] [place]. Records requested from there. Post-op appointment request [...] with info. Thank you Best contact number: [phone] (mobile) Optimal time of day to reach [...] Description 12/13/2024 2:00 PM EDT Office Visit [facility] [address] [place] [address] Oscar Appiah MD [address] [facility] [address] [place] [address] 12/19/2024 7:30 AM EDT Appointment [facility] [address] 5th Floor [address] [place] [address] 12/19/2024 8:00 AM EDT Appointment [facility] [address] 5th Floor [address] [place] [address] 12/19/2024 9:00 AM EDT Office Visit [facility] [address] [place] [address] Nathaly Nowak MD [address] [facility] [address] [place] [address] documented as of this encounter Goals Goal [...] documented as of this encounter Care Teams It Application Administrator Relationship Specialty Start Date End Date Asad Victor MD [address] [place] [address] PCP - General 10/07/22 documented as of this encounter
--- OUTSIDE RECORDS SUMMARY | 2024-12-13 08:24 | XMS_ITS | Encounter Summary ---
Author Organization [employer] ([place], [place], [place], [place]) Address [address] [place] [address] Care Team Providers Care Entry Level Programmer Name Role Phone Unavailable Primary Care Provider [...] Description 12/13/2024 3:30 PM EDT Clinical Support [facility] [place] [address] [place] [address] 12/16/2024 3:30 PM EDT Clinical Support [facility] [place] [address] [place] [address] 12/18/2024 3:00 PM EDT Office Visit [facility] 1 [place] [address] Jerry Monroe Jr., MD [address] [place] [address] 12/20/2024 3:30 PM EDT Clinical Support [facility] 1 [place] [address] documented as of this encounter Visit Diagnoses Not on filedocumented in this encounter
--- OUTSIDE RECORDS SUMMARY | 2024-12-13 08:24 | XMS_ITS | Encounter Summary ---
Author Organization [employer] ([place], [place], [place], [place]) Address [address] [place] [address] Care Team Providers Care Manufacturing Storeperson Name Role Phone Unavailable Primary Care Provider [...] Description 12/13/2024 3:30 PM EDT Clinical Support [facility] [place] [address] [place] [address] 12/16/2024 3:30 PM EDT Clinical Support [facility] [place] [address] [place] [address] 12/18/2024 3:00 PM EDT Office Visit [facility] 1 [place] [address] Jerry Monroe Jr., MD [address] [place] [address] 12/20/2024 3:30 PM EDT Clinical Support [facility] 1 [place] [address] documented as of this encounter Visit Diagnoses Not on filedocumented in this encounter
--- OUTSIDE RECORDS SUMMARY | 2024-12-13 08:24 | XMS_ITS | Clinical Summary ---
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 Gautam MD Collected: 10/17/2024 1027 Ordering Location: [facility] A OPERATING RO[facility] Received: 10/17/2024 1325 [...] cm. The specimen is serially sectioned and international representative sections are submitted in cassette A1. [...] MD LAB PATHOLOGY ORDERABLES Gwen l Result [facility] [address] [place] [address] * ANESTHESIA ULTRASOUND GUIDED (10/17/2024 8:52 AM [...] Performed by Swetha Villareal MD Staffing Performed: CAR USHER CAR USHER: Jenna Lopez CRNA Maria Fernanda Mccallum MD ANESTHESIA ORDERABLES Edite d Result - Final * MI AN ELECTIVE ENDOTRACHEAL AIRWAY, PB ANESTHESIA PLACEHOLDER (10/17/2024 8:03 AM EDT) Jenna Martinez CRNA - 10/17/2024 8:03 AM EDT Jenna Lopez CRNA 10/17/2024 9:00 AM Airway Date/Time: 10/17/2024 8:03 AM Reason: elective Airway not difficult General Information and Staff Patient location during procedure: OR CAR USHER: Jenna Lopez CRNA Performed: CAR USHER Patient Condition Indications for airway management: anesthesia [...] Trace AR. The images were Saved in [employer]. The study was technically adequate. Comments: I [...] Modality Other Narrative 10/17/2024 9:50 AM EDT [facility]: Pre-operative CIED Report Assessment and Sara-Procedural Reommendations: Name: Mono Bobby Date: 10/17/2024 : 1960 Age: 64 y.o. 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 Lead integrity [...] recommendations. Supporting reports can be found in [employer] media file. us Emelina DOSHI CV IMPLANTABLE [...] 7:15 PM EDT CLINICAL INDICATION: s/p L LITHOGRAPH PRINTER pseudoaneurysm injection TECHNIQUE: Non-invasive, real time duplex [...] sac. The following flow velocities were obtained: LITHOGRAPH PRINTER: 114 cm/s SFA: 0 cm/s PFA: 278 cm/s Popliteal A: 41 cm/s REGULATORY AFFAIRS DIRECTOR distal: 43 cm/s DPA: 67 cm/s Pseudoaneurysm sac: 0 cm/s Procedure Note Neil Isaac MD - 09/22/2024 CLINICAL INDICATION: s/p L LITHOGRAPH PRINTER pseudoaneurysm injection TECHNIQUE: Non-invasive, real time duplex exam of the lower extremity arterialcirculation with Doppler ultrasonic waveform and spectral analysis wasperformed. COMPARISON: Post pseudoaneurysm thrombin injection arterial duplex akrxzwhid87/28/2025; Following thrombin injection of the left common femoral arterypseudoaneurysm, no active flow is noted. Study suggests successfulthrombin injection therapy FINDINGS: Left: Following thrombin injection, an echogenic thrombus is noted within thepseudoaneurysm sac. Color and pulsed Doppler analysis demonstrates anabsence of flow within the pseudoaneurysm sac. The following flowvelocities were obtained: LITHOGRAPH PRINTER: 114 cm/s SFA: 0 cm/s PFA: 278 cm/s Popliteal A: 41 cm/s REGULATORY AFFAIRS DIRECTOR distal: 43 cm/s DPA: 67 cm/s Pseudoaneurysm [...] ECG Atrial Rate 85 BPM MUSE ECG MI Interval 146 ms MUSE ECG QRSD Interval 128 ms MUSE ECG QT Interval 390 ms MUSE ECG QTC Interval 464 ms MUSE ECG P [place] 52 degrees MUSE ECG R [place] 263 degrees MUSE ECG T Wave [place] 57 degrees MUSE ECG Diagnosis Atrial-sensed ventricular-pace d rhythm MUSE ECG Diagnosis Biventricular pacemaker detected MUSE ECG Diagnosis MUSE ECG Diagnosis MUSE ECG Diagnosis Confirmed by Sana Ruth ([id number]) on 09/22/2024 11:34:36 PM MUSE ECG 09/21/2024 2:00 AM EDT 09/22/2024 11:34 PM EDT us Nathaly Nowak MD ECG ORDERABLES Final Result MUSE ECG * ED HIV 1/2 Antibody/Antigen Screen w/Reflex to HIV 1/2 Differentiation (09/20/2024 10:33 PM EDT) Pathologist [facility] HIV 1 & 2 Antibody/Antigen Screen Non Reactive Non Reactive 09/20/2024 11:39 PM EDT [facility] Comment:Screening for HIV 1 & 2 antibodies, and P24 antigen is NONREACTIVE. No confirmatory testing is required. Blood Venous blood specimen / Unknown Venipuncture / Unknown 09/20/2024 10:33 PM EDT 09/20/2024 10:54 PM EDT Giorgi Perkins MD LAB BLOOD ORDERABLES Final Result [facility] [address] [place] [facility] [place] [address] * Hepatitis C Antibody - ED (09/20/2024 10:33 PM EDT) Pathologist [facility] Hepatitis C Antibody Negative Negative 09/20/2024 11:39 PM EDT [facility] Blood Venous blood specimen / Unknown Venipuncture / Unknown 09/20/2024 10:33 PM EDT 09/20/2024 10:53 PM EDT Giorgi Perkins MD LAB BLOOD ORDERABLES Final Result [facility] [address] [place] [address] * APTT (09/20/2024 10:33 PM EDT) Pathologist [facility] aPTT 28 25 - 35 sec LAB COAGULATION METHOD 09/21/2024 12:19 AM EDT [facility] Blood Venous blood specimen / Unknown Venipuncture / Unknown 09/20/2024 10:33 PM EDT 09/20/2024 10:42 PM EDT us Giorgi Perkins MD LAB BLOOD ORDERABLES Final Result Performing Organization Address City/[facility] [[email or web address]] [place] [address] from Last 3 Months Additional Health Concerns Active Problems Noted Date Diagnosed Date Autogenerated Problem 09/23/2024 Insurance MEDICAID [facility] MEDICARE Advance Directives * Full Code [...] Yes Care Teams Grinder Set Up Operator Relationship Specialty Start Date End Date Asad Victor MD [address] [place] [address] PCP - General 10/07/22
--- OUTSIDE RECORDS SUMMARY | 2024-12-13 08:25 | XMS_ITS | Encounter Summary ---
Author Organization [facility] Address [address] [place] [address] Care Team Providers Care Vault Teller Name Role Phone Asad Victor MD Primary Care Provider + [phone] Encounter Details Date Type Department Care Team [...] drink first t dino in the morning (EYE-BOAT TESTER) to steady your nerves or to [...] Description 12/13/2024 2:00 PM EDT Office Visit [facility] [address] [facility] [place] [address] Oscar Appiah MD [address] [facility] [address] [place] [address] 12/19/2024 7:30 AM EDT Appointment [facility] Vascular Lab [address] 5th Floor [address] [place] [address] 12/19/2024 8:00 AM EDT Appointment [facility] Vascular Lab [address] 5th Floor Wing [address], [address] [place] [address] 12/19/2024 9:00 AM EDT Office Visit [facility] [address] 5th Floor Wing [address], [address] [place] [address] Nathaly Nowak MD [address] [place] [address] documented as of this encounter Goals Goal [...] documented as of this encounter Care Teams Vault Teller Relationship Specialty Start Date End Date Asad Victor MD [address] [place] [address] PCP - General 10/07/22 documented as of this encounter
--- OUTSIDE RECORDS SUMMARY | 2024-12-13 08:25 | XMS_ITS | Encounter Summary ---
Author Organization Healthcare Address [address] [id number] Care Team Providers Care Canopy Stringer Name Role Phone Asad Victor MD Primary Care Provider + [phone] Encounter Details Date Type Department Care Team (Late st Contact Info) Description 10/22/2024 Telephone Vascular Surgery [address] [place] [address] Alison Beltrán, SCIENCE EDUCATION PROFESSOR, DNP [address] [facility] [address] [place] [address] Social History Tobacco Use Types Packs/Day Years [...] drink first t dino in the morning (EYE-DOGMAN/WOMAN) to steady your nerves or to get [...] Notes * Telephone Encounter - Alison Beltrán, SCIENCE EDUCATION PROFESSOR, DNP - 10/22/2024 11:39 AM EDT Returned patient call. Patient s/p left common/superficial/profunda femoral thromboendarterectomy with bovine patch repair and left external iliac artery/SOLAR SYSTEMS DESIGNER stent with Dr Gautam on 10/17/24. [...] EDT Office Visit [facility] [address] [place] [address] Oscar Appiah MD [address] [facility] [address] [place] [address] 12/19/2024 7:30 AM EDT Appointment [facility] Vascular Lab [address] [place] [address] 12/19/2024 8:00 AM EDT Appointment [facility] Vascular Lab [address] [place] [address] 12/19/2024 9:00 AM EDT [facility] [address] 5th Floor Wing D, [address] [place] [address] Nathaly Nowak MD [address] [facility] [address] [place] [address] documented as of this encounter [...] documented as of this encounter Care Teams Canopy Stringer Relationship Specialty Start Date End Date Asad Victor MD [address] [place] [address] PCP - General 10/07/22 documented as of this encounter
--- OUTSIDE RECORDS SUMMARY | 2024-12-13 08:26 | XMS_ITS | Encounter Summary ---
Author Organization Healthcare Address [address] [place] [address] Care Team Providers Care Photo Colorer Name Role Phone Asad Victor MD Primary Care Provider + [phone] Encounter Details Date Type Department Care Team (Late st Contact Info) Description 11/27/2024 Orders Only [address] [address] Vaishali Kraus MD [address] [place] [address] [address] [place] [address] Therapeutic drug monitoring (Primary Dx) [...] time in the past [address] [facility], were you homeless or living [...] first t dino in the morning (EYE-SUPERVISOR CONTINUOUS WELD PIPE MILL) to steady your nerves or to get [...] Description 12/13/2024 2:00 PM EDT Office Visit [facility] [address] [facility] [place] [address] Oscar Appiah MD [address] [facility] [address] [place] [address] 12/19/2024 7:30 AM EDT Appointment [facility] Vascular Lab [address] 5th Floor [address] [place] [address] 12/19/2024 8:00 AM EDT Appointment [facility] Vascular Lab [address] 5[address] [place] [address] 12/19/2024 9:00 AM EDT Office Visit [facility] [address] 5[address] [place] [address] Nathaly Nowak MD [address] [place] [address] Scheduled Orders Name Type Priority [...] documented as of this encounter Care Teams Photo Colorer Relationship Specialty Start Date End Date Asad Victor MD [address] [place] [address] PCP - General 10/07/22 documented as of this encounter
--- OUTSIDE RECORDS SUMMARY | 2024-12-13 08:26 | XMS_ITS | Encounter Summary ---
Author Organization Healthcare Address [address] [place] [address] Care Team Providers Care Racing Car Driver Name Role Phone Asad Victor MD Primary Care Provider + [phone] Encounter Details Date Type Department Care Team (Late st Contact Info) Description 10/17/2024 Orders Only External Location [address] [place] [address] Provider, External Social History Tobacco Use Types [...] first t dino in the morning (EYE-ASBESTOS CLOTH INSPECTOR) to steady your nerves or to get rid of a hangover? 0 10/18/2021 CAGE Questionnaire Score 0 022 Utilities Answer Date Recorded In the past 12 months has th e [employer], gas, oil, or water [employer] threatened to shut off services in your [...] 12/13/2024 2:00 PM EDT Office Visit [facility] [address] [facility] [place] [address] Oscar Appiah MD [address] [facility] [address] [place] [address] 12/19/2024 7:30 AM EDT Appointment [facility] Vascular Lab [address] 5[address] [place] [address] 12/19/2024 8:00 AM EDT Appointment [facility] Vascular Lab [address] 5th [address] [place] [address] 12/19/2024 9:00 AM EDT Office Visit [facility] [address] 5th Floor [address] [place] [address] Nathaly Nowak MD [address] [place] [address] documented as of this encounter Goals Goal [...] documented as of this encounter Care Teams Racing Car Driver Relationship Specialty Start Date End Date Asad Victor MD [address] [place] [address] PCP - General 10/07/22 documented as of this encounter
--- OUTSIDE RECORDS SUMMARY | 2024-12-13 08:26 | XMS_ITS | Encounter Summary ---
Author Organization [facility] Address [address] [place] [address] Care Team Providers Care Bagel Maker Name Role Phone Asad Victor MD Primary Care Provider + [phone] Encounter Details Date Type Department Care Team [...] drink first t dino in the morning (EYE-PROFESSOR OF GEOGRAPHY) to steady your nerves or to get [...] EDT Office Visit [facility] [address] [place] [address] Oscar Appiah MD [address] [address] 12/19/2024 7:30 AM EDT Appointment [facility] Vascular Lab [address] 5[address] [place] [address] 12/19/2024 8:00 AM EDT Appointment [facility] Vascular Lab [address] [facility] 5th Floor [address] [place] [address] 12/19/2024 9:00 AM EDT Office Visit [facility] [address] 5th Floor [address] [place] [address] Nathaly Nowak MD [address] [facility] [address] [place] [address] documented as of this [...] documented as of this encounter Care Teams Bagel Maker Relationship Specialty Start Date End Date Asad Victor MD [address] [place], [place] [id number] PCP - General 10/07/22 documented as of this encounter
--- OUTSIDE RECORDS SUMMARY | 2024-12-13 08:28 | XMS_ITS | Encounter Summary ---
Author Organization Healthcare Address [address] [place] [address] Care Team Providers Care Solid Surface Fabricator Name Role Phone Asad Victor MD Primary Care Provider + [phone] Encounter Details Date Type Department Care Team (Late st Contact Info) Description 12/07/2024 Results Follow-Up [place] [address] [place] [address] Vaishali Kraus MD [address] [facility] [address] [place] [address] Social History Tobacco Use Types [...] first t dino in the morning (EYE-GLASS BLOWER HELPER) to steady your nerves or to [...] 12/13/2024 2:00 PM EDT Office Visit [facility] [address] [facility] [place] [address] Oscar Appiah MD [address] [facility] [address] [place] [address] 12/19/2024 7:30 AM EDT Appointment [facility] Vascular Lab [address] 5[address] Floor [address] [place] [address] 12/19/2024 8:00 AM EDT Appointment [facility] Vascular Lab [address] 5th Floor [address] [place] [address] 12/19/2024 9:00 AM EDT Office Visit [facility] Comprehensive Vascular Clinic [address] 5th Floor [address] [place] [address] Nathaly Nowak MD [address] [place] [address] documented as of this encounter [...] documented as of this encounter Care Teams Solid Surface Fabricator Relationship Specialty Start Date End Date Asad Victor MD [address] [place] [address] PCP - General 10/07/22 documented as of this encounter
--- OUTSIDE RECORDS SUMMARY | 2024-12-13 08:30 | XMS_ITS | Referral Summary ---
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); Localized tissue (HCC); Other specified local infections of the skin and subcutaneous tissue; Diabetes mellitus with skin ulcer (HCC) 12/09/2024 Travel 12/09/2024 3:30 PM EDT Clinical Support [facility] [address] [place] [address] Jerry Monroe Jr., MD 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) 12/04/2024 Travel 12/04/2024 1:40 PM EDT Office Visit [facility] [address] [place] [address] Jerry Monroe Jr., MD 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); Localized tissue (HCC); Other specified local infections of the skin and subcutaneous tissue; Diabetes mellitus with skin ulcer (HCC) 12/02/2024 Travel 12/02/2024 2:15 PM EDT Clinical Support [facility] [address] [place] [address] Jerry Monroe Jr., MD 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) 11/29/2024 4:00 PM EDT Clinical Support [facility] [place] [address] [place] [address] Jerry Monroe Jr., MD 11/27/2024 Travel 11/27/2024 2:20 PM EDT Office Visit [facility] [place] [address] [place] [address] Jerry Monroe Jr., MD 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); Localized tissue (HCC); Other specified local infections of the skin and subcutaneous tissue; Diabetes mellitus with skin ulcer (HCC) 11/22/2024 4:15 PM EDT Clinical Support [facility] [address] [place] [address] Jerry Monroe Jr., MD 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) 11/20/2024 Travel 11/20/2024 2:15 PM EDT Clinical Support [place] [address] Jerry Monroe Jr., MD 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) 11/18/2024 Travel 11/18/2024 1:10 PM EDT Office Visit [facility] [address] [place] [address] Jerry Monroe Jr., MD Non-pressure chronic ulcer [...] Description 12/13/2024 3:30 PM EDT Clinical Support [facility] [address] [place] [address] 12/16/2024 3:30 PM EDT Clinical Support [facility] [address] [place] [address] 12/18/2024 3:00 PM EDT Office Visit [facility] [address] [address] Jerry Monroe Jr., MD [address] [place] [address] 12/20/2024 3:30 PM EDT Clinical Support [facility] [address] [place] [address] Procedures Procedure Name Priority Date/Time Associated Diagnosis [...] skin and subcutaneous tissue WOUND TREATMENT Routine 12/09/2024 5:03 PM EDT [...] Last 3 Months Results * Wound Treatment (12/11/2024 6:05 PM EDT) Only the most recent of3 resultswithin the time period is included. Jerry Monroe Jr., MD NURSING PATHWAYS ORDERABL ES Final Result * TN DEBRIDEMENT MUSCLE &/FASCIA 1ST 20 SQ CM/<, TN DEBRIDEMENT MUSCLE &/FASCIA EA ADDL 20SQ CM [...] verified the correct patient, procedure, equipment, senior safety support manager, and site/side marked as required. [...] TN DEBRIDEMENT MUSCLE &/FASCIA EA ADDL 20SQ CM [...] verified the correct patient, procedure, equipment, senior safety support manager, and site/side marked as required. [...] TN DEBRIDEMENT MUSCLE &/FASCIA EA ADDL 20SQ CM [...] verified the correct patient, procedure, equipment, senior safety support manager, and site/side marked as required. [...] TN DEBRIDEMENT MUSCLE &/FASCIA EA ADDL 20SQ CM [...] verified the correct patient, procedure, equipment, senior safety support manager, and site/side marked as required. [...] verified the correct patient, procedure, equipment, senior safety support manager, and site/side marked as required. [...] verified the correct patient, procedure, equipment, senior safety support manager, and site/side marked as required. [...] verified the correct patient, procedure, equipment, senior safety support manager, and site/side marked as required. [...] verified the correct patient, procedure, equipment, senior safety support manager, and site/side marked as required. [...] Final Result from Last 3 Months Insurance [facility] M[facility] ADV DUAL COMPLETE MEDICAID OF [place]
--- OUTSIDE RECORDS SUMMARY | 2024-12-13 08:31 | XMS_ITS | Encounter Summary ---
Author Organization [employer] ([place], [place], [place], [place]) Address [address] [place] [address] Care Team Providers Care Oxygen Therapy Teacher Name Role Phone Unavailable Primary Care [...] Description 12/13/2024 3:30 PM EDT Clinical Support [facility] [place] 1 [place] [address] 12/16/2024 3:30 PM EDT Clinical Support [facility] [place] 1 [place] [address] 12/18/2024 3:00 PM EDT Office Visit [facility] 1 [place] [address] Jerry Monroe Jr., MD [address] [place] [address] 12/20/2024 3:30 PM EDT Clinical Support [facility] 1 [place] [address] documented as of this encounter Visit Diagnoses Not on filedocumented in this encounter
--- OUTSIDE RECORDS SUMMARY | 2024-12-13 08:32 | XMS_ITS | Encounter Summary ---
Author Organization Healthcare Address [address] [place] [address] Care Team Providers Care Surplus Property Disposal Agent Name Role Phone Asad Victor MD Primary Care Provider + [phone] Encounter Details Date Type Department Care Team (Late st Contact Info) Description 11/05/2024 Orders Only External Location [address] [place] [address] Provider, External Social History Tobacco Use Types [...] drink first t dino in the morning (EYE-SHEET METAL DUCT INSTALLER APPRENTICE) to steady your nerves or to get rid of a hangover? 0 10/18/2021 CAGE Questionnaire Score 0 022 Utilities Answer Date Recorded In the past 12 months has th e [employer], gas, oil, or water company threatened to [...] 12/13/2024 2:00 PM EDT Office Visit [facility] [address] [place] [address] Oscar Appiah MD [address] [facility] [address] [place] [address] 12/19/2024 7:30 AM EDT Appointment [facility] Lab [address] 5th Floor [address], [address] [place] [address] 12/19/2024 8:00 AM EDT Appointment [facility] [address] 5th Floor [address], [address] [place] [address] 12/19/2024 9:00 AM EDT Office Visit [facility] [address] 5th Floor [address], [address] [place] [address] Nathaly Nowak MD [address] [place] [address] documented as of this encounter Goals Goal [...] documented as of this encounter Care Teams Surplus Property Disposal Agent Relationship Specialty Start Date End Date Asad Victor MD [address] [place] [address] PCP - General 10/07/22 documented as of this encounter
--- OUTSIDE RECORDS SUMMARY | 2024-12-13 08:32 | XMS_ITS | Encounter Summary ---
Author Organization [facility] Address [address] [place] [address] Care Team Providers Care Practice Nurse Name Role Phone Asad Victor MD Primary Care Provider + [phone] Encounter Details Date Type Department Care Team [...] drink first t dino in the morning (EYE-FIRM ADMINISTRATOR) to steady your nerves or to [...] EDT Office Visit [facility] [address] [facility] [place] [address] Oscar Appiah MD [address] [facility] [address] [place] [address] 12/19/2024 7:[address] [facility] V[facility] Lab [address] [facility] 5th Floor [address], [address] [place] [address] 12/19/2024 8:[address] [facility] Lab [address] [facility] 5th Floor [address], [address] [place] [address] 12/19/2024 9:00 AM EDT Office [facility] [address] [facility] 5th Floor [address], [address] [place] [address] Nathaly Nowak MD [address] [place] [address] documented as of this encounter [...] documented as of this encounter Care Teams Practice Nurse Relationship Specialty Start Date End Date Asad Victor MD [address] [place] [address] BISI Marshall [address] PCP - General 10/07/22 documented as of this encounter
--- OUTSIDE RECORDS SUMMARY | 2024-12-13 08:33 | XMS_ITS | Encounter Summary ---
Author Organization [employer] ([place], [place], [place], [place]) Address [address] [place] [address] Care Team Providers Care Innovation Analyst Name Role Phone Unavailable Primary Care [...] Clinical Support [facility] [place] 1 [place] [address] 12/16/2024 3:30 PM EDT Clinical Support [facility] [place] 1 [place] [address] 12/18/2024 3:00 PM EDT Office Visit [facility] 1 [place] [address] Jerry Monroe Jr., MD [address] [place] [address] 12/20/2024 3:30 PM EDT Clinical Support [facility] 1 [place] [address] documented as of this encounter Visit Diagnoses Not on filedocumented in this encounter
--- OUTSIDE RECORDS SUMMARY | 2024-12-13 08:33 | XMS_ITS | Encounter Summary ---
Author Organization Healthcare Address [address] [place] [address] Care Team Providers Care Implant Polisher Name Role Phone Asad Victor MD Primary Care Provider + [phone] Encounter Details Date Type Department Care Team (Late st Contact Info) Description 11/15/2024 Clinical Support [place] [address] [place] [address] Charly Orlando, PharmD [address] [place] [address] [address] [place] [address] Social History Tobacco Use Types [...] drink first t dino in the morning (EYE-GIRL FRIDAY) to steady your nerves or to get rid of a hangover? 0 10/18/2021 CAGE Questionnaire Score 0 022 Utilities Answer Date Recorded In the past 12 months has th e [employer], gas, oil, or water company threatened to [...] 12/13/2024 2:00 PM EDT Office Visit [facility] [address] [facility] [place] [address] Oscar Appiah MD [address] [facility] [address] [place] [address] 12/19/2024 7:30 AM EDT Appointment [facility] Vascular Lab [address] 5th [address] [place] [address] 12/19/2024 8:00 AM EDT Appointment [facility] Vascular Lab [address] [facility] 5th Floor Wing [address], [address] [place] [address] 12/19/2024 9:00 AM EDT Office Visit [facility] [address] [facility] 5th Floor [address], [address] [place] [address] Nathaly Nowak MD [address] [place] [address] documented as of this encounter [...] documented as of this encounter Care Teams Implant Polisher Relationship Specialty Start Date End Date Asad Victor MD [address] [place] [address] PCP - General 10/07/22 documented as of this encounter
[2024-12-13 08:50] VITALS: BP 123/59; PULSE 70; RESP 20; O2SAT 98
[2024-12-13] MEDS: ERTAPENEM SODIUM 1 GM in 0.9 % SODIUM CHLORIDE 50 ML IV (09:29)
[2024-12-13 09:30] VITALS: BP 130/62; PULSE 61; RESP 20; O2SAT 97
[2024-12-13 10:05] VITALS: BP 138/60; PULSE 58; RESP 20; O2SAT 98
== END 2024-12-13 23:59 | disposition home or self-care (01) ==
LOC: INF 08:08
PROVIDERS: PCP Family Medicine
DX: T81.49XA Infection following a procedure, other surgical site, initial encounter (principal); L08.9 Local infection of the skin and subcutaneous tissue, unspecified
CPT/HCPCS: 96365; 96367; J1335; J2248

== ENCOUNTER 2024-12-14 07:27 | Outpatient (RCR) | payer MEDICARE, OTHER, SELFPAY ==
[2024-12-14] MEDS: ERTAPENEM SODIUM 1 GM in 0.9 % SODIUM CHLORIDE 50 ML IV (07:50)
[2024-12-14] MEDS: MICAFUNGIN SODIUM IV (08:20)
[2024-12-14] MEDS: SODIUM CHLORIDE 0.9% IV (08:20)
== END 2024-12-14 09:25 ==
LOC: INF 07:27
PROVIDERS: PCP Family Medicine
DX: T81.49XA Infection following a procedure, other surgical site, initial encounter (principal); T14.8XXA Other injury of unspecified body region, initial encounter; L08.9 Local infection of the skin and subcutaneous tissue, unspecified; X58.XXXA Exposure to other specified factors, initial encounter
CPT/HCPCS: 96365; 96366; 96367; J1335; J2248

== ENCOUNTER 2024-12-15 07:37 | Outpatient (CLI) | payer MEDICARE, OTHER, SELFPAY ==
--- OUTSIDE RECORDS SUMMARY | 2024-10-16 14:45 | XMS_ITS | Encounter Summary ---
Author Organization Healthcare Address [address] [place] [address] Care Team Providers Care Circulation Sales Representative Name Role Phone Asad Victor MD Primary Care Provider + [phone] Encounter Details Date Type Department Care Team (Latest Contact Info) Description 10/16/2024 2:45 PM EDT - 10/16/2024 11:59 PM EDT Hospital Encounter Cardiac Imaging [address] [place] [address] Discharge Disposition: Home or Self Care Social [...] drink first t dino in the morning (EYE-SPECIAL MACHINE STITCHER) to steady your nerves or to get [...] Info) Description 12/19/2024 7:[address] [facility] [address] [place] [address] 12/19/2024 8:[address] [facility] [address] [place] [address] [address] [place] [address] 12/19/2024 9:00 AM EDT Office Visit [facility] [address] [place] [address] Nathaly Nowak MD [address] [facility] [address] [place] [address] documented as of this encounter Goals Goal [...] Modality Other Narrative 10/17/2024 9:50 AM EDT [facility]: Pre-operative CIED Report Assessment and Sara-Procedural Reommendations: Name: Mono Bobby Date: 10/17/2024 : 1960 Age: 64 y.o. Patient has a Chemotherapist: Berger BATTERY TECHNICIAN-PM Remaining battery longevity adequate. Lead integrity test [...] recommendations. Supporting reports can be found in [employer] file. 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
--- OUTSIDE RECORDS SUMMARY | 2024-10-17 06:21 | XMS_ITS | Encounter Summary ---
Author Organization [facility] Address [address] [id number] Care Team Providers Care Lighter Name Role Phone Asad Victor MD Primary Care Provider [phone] Reason for Referral * Imaging (Routine) - Authorized Specialty Diagnoses / Procedures Referred By Susan t Referred To Contact Cardiology Diagnoses Critical limb ischemia of left lower extremity Pseudoaneurysm of left femoral artery (CMS/HCC) Procedures VAS US Arterial Duplex Lower Extremity Unilateral Left Terrell Gautam MD [address] [address] Phone: tel: fax: Referral ID Status Reason Start Date Expiration Date Visits Requested Visits Authorized [id number] Authorized Perform Procedure 10/19/2024 04/20/2026 1 1 * Imaging (Routine) - Authorized Specialty Diagnoses / Procedures Referred By Contac t Referred To Contact Cardiology Diagnoses Critical limb ischemia of left lower extremity Pseudoaneurysm of left femoral artery (CMS/HCC) Procedures VAS Ankle Brachial Index - Segmental Terrell Gautam MD [id number] [place] [address] Phone: tel: fax: Referral ID Status Reason Start Date Expiration Date Visits Requested Visits Authorized [id number] Authorized Perform Procedure 10/19/2024 04/20/2026 1 1 * Consultation (Routine) - Authorized Specialty Diagnoses / Procedures Referred By Contact Referred To Contact Vascular Surgery / [facility] Diagnoses Critical limb ischemia of left lower extremity Pseudoaneurysm of left femoral artery (CMS/HCC) Terrell Gautam MD [address] [place] [address] Phone: tel:[phone] fax:[phone] [facility] [address] [place] [address] 5th Floor Wing [address], [address] [place] [address] Phone: tel: fax: Referral ID Status Reason Start Date Expiration Date Visits Requested Visits Authorized [id number] Authorized Specialty Services Required 10/19/2024 04/20/2026 [address] Gautam, with SIL, arterial duplex Reason for Visit * Auth/Cert (Routine) Specialty Diagnoses / Procedures Referred By Susan t Referred To Contact Diagnoses Critical limb ischemia of left lower extremity Critical limb ischemia of left lower extremity [I70.222] Procedures KS VEIN BYPASS GRAFT,FEM-POP CREATION, BYPASS, ARTERIAL, FEMORAL TO POPLITEAL Terrell Gautam MD [address] [place] [address] Phone: tel: fax: [facility] A OPERATING ROOM [address] [place] [address] Phone: tel: Referral ID Status Reason Start Date Expiration Date Visits Re quested Visits Authorized [id number] 1 1 Encounter Details Date Type Department Care Team (Latest Contact Info) Description 10/17/2024 6:21 AM EDT - 10/19/2024 12:39 PM EDT Hospital Encounter [facility] H Inpatient [address] [place] [id number] Terrell Gautam MD [address] [place] [address] Pseudoaneurysm of left femoral artery (CMS/HCC) [...] any time in the past [address] 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 0 10/18/2021 CAGE Questionnaire Score 0 022 Utilities Answer Date Recorded In the past 12 months has th [employer]), gas, oil, or water [employer] threatened to shut off services in your [...] provided Taken 10/17/20242107 by Jourdan Grimes II template checker Review/Management: medications reviewed Problem: Skin Injury Risk [...] Ongoing, Progressing Intervention: Promote Activity and Functional [place] Flowsheets (Taken 10/19/2024 1048) Self-Care Promotion: BADL personal objects within reach meal set-up provided * Yuni Ramires - Keyla Chow - 10/19/2024 11:45 AM EDT Images from the original note were not included. [id number] After Peripheral Artery Bypass Surgery: In the [...] home. Last Reviewed Date: 2023 00:00:00 ?? [id number] [employer]. All rights reserved. This information is not intended as a substitute for professional medical care. Always follow your healthcare professional's instructions. * Progress Notes - Emelina Friend - 10/19/2024 11:44 AM EDT Case Management Adult Progress Note Bev Bobby 64 y.o. male CSN: [id number] Admission: 10/17/2024 6:21 AM Primary Problem: Critical [...] if any other needs arise. Emelina Friend RETORT FORKER, INSPECTOR EXHAUST EMISSIONS Social Work Case Management * Yuni OviJOSE MANUEL Chow Keyla - 10/19/2024 11:44 AM EDT Images from the original note were not included. [id number] Peripheral Artery Disease (PAD) Peripheral artery disease [...] cause. Last Reviewed Date: 2024 00:00:00 ?? [id number] [employer]. All rights reserved. This information is not intended as a substitute for professional medical care. Always follow your healthcare professional's instructions. * Yuni DiorNAVYA - Keyla Chow - 10/19/2024 11:44 AM EDT Images from the original note were not included. [id number] Leg Artery Emergencies: Critical Limb Ischemia (CLI) [...] appointments. Last Reviewed Date: 2023 00:00:00 ?? [id number] [employer]. All rights reserved. This information is not intended as a substitute for professional medical care. Always follow your healthcare professional's instructions. * Discharge Summary - Dandy Baltazar MD - 10/19/2024 11:31 AM EDT Hospitalization Admit Date/Time: 10/17/2024 6:21 AM Admitting Attending: Terrell Gautam Discharge Date: 10/19/24 Discharge Attending Physician: Nirmal Cueto MD PCP name and Address: Asad Victor MD (Inactive) [address] [place] [address] / [facility] [place] [address] Referring provider name and address: Timothy Marques PA [address] [place] [address] Chief Concern, Brief History of Present Illness, and Hospital Course Bev Bobby is an 64 y.o. 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 He [...] Your Medications These medications were sent to [facility] - [place], [place] - [address], [facility] [address] acetaminophen 500 MG tablet clopidogrel 75 MG [...] of water. 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 He [...] provided Taken 10/17/20242107 by Jourdan Grimes II, template checker Review/Management: medications reviewed Problem: Skin Injury Risk [...] Ongoing, Progressing Intervention: Promote Activity and Functional [place] Flowsheets (Taken 10/19/2024 1048) Self-Care Promotion: BADL [...] evaluation. PARTICIPANTS IN CARE Visitors Present No Wood Veneer Taper (if applicable) PRESENTATION Oxygen Oxygen Therapy: None [...] Level of Mobility Ambulatory- household only Mobility [place] Independent gait with device (rollator) History of [...] numbness in rodney) BED MOBILITY Level of [place] Physical/Non- physical Assist Adaptive Equipment Utilized Rolling/ Turning Scooting/ Bridging Modified independence (anteriorly to EOB) Bed rails Supine to Sit Modified [place] (to the right) (HOB flat) Bed rails Sit to Supine Interventions HOB flat to simulate home environment TRANSFERS Level of [place] Physical/Non- physical Assist Adaptive Equipment Utilized Sit [...] stable surfaces during transitions. AMBULATION Level of [place] Distance Adaptive Equipment Utilized Ambulation Standby assist, [...] Posture: Forward head, Rounded shoulders Level of [place] Balance Support Interventions Static Sit Independent Right [...] 3-5 steps with a railing?: A little [facility] 6-Clicks Mobility Assessment Total : 22 [...] evaluation/session. Participants in Care Family/Caregiver Present: No Wood Veneer Taper: Not Applicable Presentation Oxygen Therapy: None (Room [...] Level of Mobility: Ambulatory- household only Mobility [place]: Independent gait with device (rollator) History of [...] Mobility Bed Mobility Exam: Scooting/Bridging Level of [place]: Modified independence (anteriorly to EOB) Assistive Device: Bed rails Bed Mobility Exam: Supine to Sit Level of [place]: Modified [place] (to the right) Physical/Nonphysical Assist: (HOB flat) Assistive Device: Bed rails Transfers Transfer Exam: Sit to stand Level of [place]: Stand-by assist Physical/Nonphysical Assist: Supervision, Verbal Cues, Minimal cues Assistive Device: Walker, rolling Transfer Exam: Stand to Sit Level of [place]: Stand-by assist Physical/Nonphysical Assist: Supervision, Verbal Cues, [...] regarding toileting at this time. Standardized Assessments [facility] 6-Click Daily Activities Help from Other: Don/Doff Regular Lower Body Clothings: None Help From Other: Bathing: Little Help From Other: Toileting: None Help From Other: Don/Doff Upper Body Clothings: None Help From Other: Grooming: None Help From Other: Eating Meals: None [facility] 6 Click - Daily Activities Score: 23/24 [facility] Scoring Interpretation: Scores greater than 20.5 [...] Note Bev Bobby 64 y.o. male CSN: [id number] Admission: 10/17/2024 6:21 AM Primary Problem: Critical limb ischemia of left lower extremity Cell Pourer reviewed chart and spoke with patient to complete this Initial Case Management Assessment. PCP: Asad Victor MD (Inactive) - Dr. Palomo Preferred pharmacy is [facility] Emergency Contact: Extended Emergency Contact Information Primary Emergency Contact: Patti Hill Relation: Sister Wood Veneer Taper needed? No Insurance: Primary Visit Coverage Payer Plan Sponsor Code Group Number Group Name [facility] MEDICARE [facility] MEDICARE REPLACEMENT [id number] Primary Visit Coverage Subscriber Subscriber ID Subscriber Name Subscriber N Subscriber Address [id number] BEV BOBBY [id number] [place] [address] Secondary Visit Coverage Payer Plan Sponsor Code Group Number Group Name [facility] Secondary Visit Coverage Subscriber Subscriber ID Subscriber Name Subscriber N Subscriber Address [id number] BEV BOBBY [id number] [place] [address] Patient information: Primary Caregiver: Self Daily Living Activities: Functional Status: Independent Living Arrangements: Alone Type of Residence: Private residence, Single Level [address] [place] [address] Current DME: Equipment Currently Used at Home: walker, rollator Income Information: Income Source: Retired Income/Expense Information: Income meets expenses Current Resources Utilized: Food [place] Housing Circumstances-Z Codes: Housing Circumstances (select all [...] Dialysis Services: None. Living Will/Advance Directive/Power of Room Attendant /Guardian: Denied. Additional Comments: Patient is not medically ready for discharge. SW will continue to follow. Mariia Macedo INSPECTOR EXHAUST EMISSIONS * Care Plan - Emilia Alonso RN [...] from the original note were not included. [facility] Department of Surgery Division of Vascular [...] Agree with above assessment and evaluation from resident/MENTAL HEALTH ASSOCIATE. * Op Note - Terrell Gautam MD - 10/17/2024 8:52 AM EDT Operative Note Date: 10/17/24 Location: [facility] Name: Bev Bobby, : 1960, Diagnoses: Pre-op Diagnosis Critical limb ischemia of left lower extremity Common femoral artery pseudoaneurysm Post-op Diagnosis Critical limb ischemia of left lower extremity Common femoral artery pseudoaneurysm Procedure(s): Left common/superficial/profunda femoral thromboendarterectomy with bovine patch repair Left external iliac artery/MACHINE TOOL REBUILDER stent Attending Surgeon(s): * Terrell Gautam - Primary Park Services Specialist(s): * Luna Beckett MD - Resident - [...] Necessity Reasons Recent surgery contiguous with urinary tract/WARDROBE MANAGER/colorectal 10/17/24 190 Output (mL) 50 mL 10/18/24 08 Implants Type Name Action Serial No. VASCUGUARD 8 X 8 - [id number] Implanted STENT ENDOPROSTHESIS VIABAHN 9FR [id number] - [id number] Implanted [id number] Specimen: Specimens ID Source Frozen? 1 Other [...] and distal control. We then proceeded with emygf-clk-wxic exposure of the popliteal artery. A medial [...] balloon dilated thestent with a 9 mm [place]. We closed the arteriotomy with a single [...] 10/17/2024 8:52 AM EDT Date: 10/17/24 Location: [facility] Name: Bev Perez Kanu, : 1960, Diagnoses: Pre-op Diagnosis Critical limb ischemia of left lower extremity Common femoral artery pseudoaneurysm Post-op Diagnosis Critical limb ischemia of left lower extremity Common femoral artery pseudoaneurysm Procedure(s): Left common/superficial/profunda femoral thromboendarterectomy with bovine patch repair Left external iliac artery/MACHINE TOOL REBUILDER stent Attending Surgeon(s): * Terrell Gautam - Primary Park Services Specialist(s): * Luna Beckett MD - Resident - Assisting * Dandy Baltazar MD - Fellow Anesthesia: General ASA: III Blood Administration: Blood Product Administration History None Estimated Blood Loss: 300 mL Drains: Urethral Catheter Temperature probe 16 Fr. (Active) Implants Type Name Action Serial No. VASCUGUARD 8 X 8 - [id number] Implanted STENT ENDOPROSTHESIS VIABAHN 9FR [id number] - [id number] Implanted [id number] Specimen: Specimens ID Source Frozen? 1 Other [...] issues. 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 He previouslyunderwent thrombin injection. He reports pain in his calves. He presents today for scheduled left lower extremity femoral to cmkfj-byf-moyv popliteal bypass. Planned likely use PTFE. He [...] 16. Results Review {Vanishing Link Review Results :[id number] I have reviewed the latest lab and imaging results. Assessment & Plan Critical limb ischemia of left lower extremity Proceed with scheduled surgery left lower extremity femoral to zxces-mib-nbrq popliteal artery bypass graft. Extensive discussion had [...] Info) Description 12/19/2024 7:30 AM EDT Appointment [facility] [address] [place] [address] 12/19/2024 8:00 AM EDT Appointment [facility] [address] [place] [address] [address], [address] [place] [address] 12/19/2024 9:00 AM EDT Office Visit [facility] [address] [place] [address] Nathaly Nowak MD [address] [place], [place] [id number] [place] [address] Pending Results Name Type Priority Associated Diagnoses [...] PREPARE RBC STAT 10/17/2024 8:06 AM EDT KS VEIN BYPASS GRAFT,FEM-POP 10/17/2024 7:38 AM EDT [...] Comment 10/19/2024 11:42 AM EDT HEALTHCARE LAB Coil Cleaner ID Job Andrew 10/20/19 11:42 AM EDT HEALTHCARE LAB Device ID [id number] 10/19/2024 11:42 AM EDT [facility] Specimen Type POC Capillary 10/19/2024 11:42 AM EDT [facility] Blood Capillary blood specimen / Unknown 10/19/2024 11:40 AM EDT 10/19/2024 11:42 AM EDT Terrell Gautam MD LAB POINT OF CARE TE ST DOCKED DEVICE UNSOLICITED RESULTS Final Result HEALTH[facility]ARE LAB [address] [place] [address] * (ABNORMAL) Protime-INR (10/19/2024 8:25 AM EDT) [...] INR 2.5 to 3.5 Prevention of recurrent UT INR 2.5 to 3.5 us Nirmal Cueto MD LAB BLOOD ORDERABLES Final Result Performing Organization Address [facility] Co de Phone Number [facility] [address] [place] [address] * (ABNORMAL) Phosphorus (10/19/2024 8:25 AM EDT) Phosphorus, Plasma 2.2(L) 2.5 - 4.5 mg/dL 10/19/2024 9:12 AM EDT [facility] Blood Venous blood specimen / Unknown Venipuncture / Unknown 10/19/2024 8:25 AM EDT 10/19/2024 8:43 AM EDT us Nirmal Cueto MD LAB BLOOD ORDERABLES Final Result Performing Organization Address [facility] Co de Phone Number [facility] [address] [place] [address] * Magnesium (10/19/2024 8:25 AM EDT) Magnesium, Plasma 2.1 1.9 - 2.4 mg/dL 10/19/2024 9:12 AM EDT [facility] Blood Venous blood specimen / Unknown Venipuncture / Unknown 10/19/2024 8:25 AM EDT 10/19/2024 8:43 AM EDT us Nirmal Cueto MD LAB BLOOD ORDERABLES Final Result Performing Organization Address [facility] Co de Phone Number [facility] [address] [place] [address] * (ABNORMAL) Basic metabolic panel (10/19/2024 8:25 [...] Final Result [facility] [address] [place] [address] * (ABNORMAL) CBC W/O Differential (10/19/2024 8:25 [...] Final Result [facility] [address] [place] [address] * (ABNORMAL) POCT glucose meter (10/19/2024 7:35 AM EDT) [facility] POCT Glucose 187(H) 74 - 99 mg/dL 10/19/2024 7:37 AM EDT [facility] Comment:Accuracy of a glucos [...] 10/19/2024 7:37 AM EDT [facility] Coil Cleaner ID Job Andrew 10/20/19 7:37 AM EDT HEALTHCARE LAB Device ID [id number] 10/19/2024 7:37 AM EDT [facility] Specimen Type POC Capillary 10/19/2024 7:37 AM EDT [facility] Blood Capillary blood specimen / Unknown 10/19/2024 7:35 AM EDT 10/19/2024 7:37 AM EDT us Terrell Gautam MD LAB POINT OF CARE TE ST DOCKED DEVICE UNSOLICITED RESULTS Final Result Performing Organization Address City/[facility]/ZIP Co de Phone Number [facility]ALTHCARE LAB [address] [place] [address] * (ABNORMAL) POCT glucose meter (10/18/2024 7:22 PM EDT) [facility] POCT Glucose 178(H) 74 - 99 [...] Comment 10/18/2024 7:24 PM EDT [facility]ALTH[facility]ARE LAB Coil Cleaner ID Mahesh Aldana 10/18/2024 7:24 PM EDT HEALTH[facility]ARE LAB Device ID [id number] 10/18/2024 7:24 PM EDT [facility] Specimen Type POC Capillary 10/18/2024 7:24 PM EDT [facility] Blood Capillary blood specimen / Unknown 10/18/2024 7:22 PM EDT 10/18/2024 7:24 PM EDT us Terrell Gautam MD LAB POINT OF CARE TE ST DOCKED DEVICE UNSOLICITED RESULTS Final Result [facility] [address] [place] [address] * (ABNORMAL) POCT glucose meter (10/18/2024 6:07 PM EDT) [facility] POCT Glucose 167(H) 74 - 99 mg/dL [...] Comment 10/18/2024 6:09 PM EDT HEALTHCARE LAB Coil Cleaner ID David Parks 10/18/2024 6:09 PM EDT [facility] Device ID [id number] 10/18/2024 6:09 PM EDT [facility] Specimen Type POC Capillary 10/18/2024 6:09 PM EDT [facility] Blood Capillary blood specimen / Unknown 10/18/2024 6:07 PM EDT 10/18/2024 6:09 PM EDT Terrell Gautam MD LAB POINT OF CARE TE ST DOCKED DEVICE UNSOLICITED RESULTS Final Result Performing Organization Address [facility] Co de Phone Number [facility] [address] [place] [address] * (ABNORMAL) POCT glucose meter (10/18/2024 11:56 AM EDT) [facility] POCT Glucose 233(H) 74 - 99 mg/dL [...] 10/21/2024 7:42 AM EDT [facility] Coil Cleaner ID Venessa Marcano 10/21/2024 7:42 AM EDT [facility] Device ID [id number] 10/21/2024 7:42 AM EDT [facility]ARE LAB Specimen Type POC Capillary 10/21/2024 7:42 AM EDT [facility] Blood Capillary blood specimen / Unknown 10/18/2024 11:56 AM EDT 10/21/2024 7:42 AM EDT us Terrell Gautam MD LAB POINT OF CARE TE ST DOCKED DEVICE UNSOLICITED RESULTS Final Result Performing Organization Address City/[facility] Co de Phone Number [facility] [address] [place] [address] * (ABNORMAL) POCT glucose meter (10/18/2024 9:24 [...] 10/21/2024 7:42 AM EDT [facility] Coil Cleaner ID Emilia Alonso 7:42 AM EDT HEALTHCARE LAB Device ID [id number] 10/21/2024 7:42 AM EDT [facility]ALTH[facility]ARE LAB Specimen Type POC Venous 10/21/2024 7:42 AM EDT [facility] LAB Blood Venous blood specimen / Unknown 10/18/2024 9:24 AM EDT 10/21/2024 7:42 AM EDT us Terrell Gautam MD LAB POINT OF CARE TE ST DOCKED DEVICE UNSOLICITED RESULTS Final Result Performing Organization Address City/[facility] Co de Phone Number [facility]ARE [facility] [address] [place] [address] * (ABNORMAL) POCT glucose meter (10/18/2024 7:36 [...] Comment 10/18/2024 7:38 AM EDT HEALTHCARE LAB Coil Cleaner ID Kizzy Godfrey 025 7:38 AM EDT HEALTHCARE LAB Device ID [id number] 10/18/2024 7:38 AM EDT [facility]ARE LAB Specimen Type POC Capillary 10/18/2024 7:38 AM EDT [facility]ALTH[facility]ARE LAB Blood Capillary blood specimen / Unknown 10/18/2024 7:36 AM EDT 10/18/2024 7:38 AM EDT us Terrell Gautam MD LAB POINT OF CARE TE ST DOCKED DEVICE UNSOLICITED RESULTS Final Result Performing Organization Address City/State/[facility] Co de Phone Number [facility]ARE LAB [address] [place] [address] * (ABNORMAL) CBC (10/18/2024 2:09 AM EDT) [...] Final Result [facility] [address] [place] [address] * (ABNORMAL) Basic metabolic panel (10/18/2024 2:09 [...] Phone Number [facility] [address] [place] [address] * (ABNORMAL) Magnesium (10/18/2024 2:09 AM EDT) Magnesium, Plasma 1.8(L) 1.9 - 2.4 mg/dL 10/18/2024 2:53 AM EDT [facility] Blood Venous blood specimen / Unknown Venipuncture / Unknown 10/18/2024 2:09 AM EDT 10/18/2024 2:25 AM EDT Nirmal Cueto MD LAB BLOOD ORDERABLES Final Result [facility] [address] [place] [address] * Phosphorus (10/18/2024 2:09 AM EDT) Phosphorus, Plasma 3.7 2.5 - 4.5 mg/dL 10/18/2024 2:53 AM EDT [facility] Blood Venous blood specimen / Unknown Venipuncture / Unknown 10/18/2024 2:09 AM EDT 10/18/2024 2:25 AM EDT us Nirmal Cueto MD LAB BLOOD ORDERABLES Final Result Performing Organization Address [facility] Co de Phone Number [facility] [address] [place] [address] * (ABNORMAL) Protime-INR (10/18/2024 2:09 AM EDT) [...] INR 2.5 to 3.5 Prevention of recurrent UT INR 2.5 to 3.5 Nirmal Cueto MD LAB BLOOD ORDERABLES Final Result Performing Organization Address [facility] Co de Phone Number [facility] [address] [place] [address] * (ABNORMAL) POCT glucose meter (10/18/2024 2:08 AM EDT) POCT Glucose 202(H) 74 - 99 mg/dL 10/18/2024 2:10 AM EDT [facility] Comment:Accuracy of a glucos [...] Comment 10/18/2024 2:10 AM EDT HEALTHCARE LAB Coil Cleaner ID Jourdan Grimes II 10/18/2024 2:10 AM EDT HEALTHCARE LAB Device ID [id number] 10/18/2024 2:10 AM EDT [facility]ALTH[facility]ARE LAB Specimen Type POC Capillary 10/18/2024 2:10 AM EDT [facility]ALTH[facility]ARE LAB Blood Capillary blood specimen / Unknown 10/18/2024 2:08 AM EDT 10/18/2024 2:10 AM EDT us Terrell Gautam MD LAB POINT OF CARE TE ST DOCKED DEVICE UNSOLICITED RESULTS Final Result Performing Organization Address [facility] Co de Phone Number [facility] [address] [place] [address] * (ABNORMAL) POCT glucose meter (10/17/2024 10:07 PM EDT) [facility] POCT Glucose 300(H) 74 - 99 [...] Comment 10/17/2024 10:10 PM EDT HEALTHCARE LAB Coil Cleaner ID Jourdan Grimes II 10/17/2024 10:10 PM EDT HEALTHCARE LAB Device ID [id number] 10/17/2024 10:10 PM EDT HEALTH[facility]ARE LAB Specimen Type POC Capillary 10/17/2024 10:10 PM EDT [facility]ALTH[facility]ARE LAB Blood Capillary blood specimen / Unknown 10/17/2024 10:07 PM EDT 10/17/2024 10:10 PM EDT us Terrell Gautam MD LAB POINT OF CARE TE ST DOCKED DEVICE UNSOLICITED RESULTS Final Result Performing Organization Address City/[facility]/ZIP Co de Phone Number HEALTHCARE LAB [address] [place] [address] * (ABNORMAL) POCT glucose meter (10/17/2024 8:07 PM EDT) [facility] POCT Glucose 391(H) 74 - 99 [...] Comment 10/17/2024 8:10 PM EDT HEALTHCARE LAB Coil Cleaner ID Jourdan Grimes II 10/17/2024 8:10 PM EDT HEALTHCARE LAB Device ID [id number] 10/17/2024 8:10 PM EDT HEALTHCARE LAB Specimen Type POC Capillary 10/17/2024 8:10 PM EDT HEALTHCARE LAB Blood Capillary blood specimen / Unknown 10/17/2024 8:07 PM EDT 10/17/2024 8:10 PM EDT us Terrell Gautam MD LAB POINT OF CARE TE ST DOCKED DEVICE UNSOLICITED RESULTS Final Result [facility] [address] [place] [address] * (ABNORMAL) POCT glucose meter (10/17/2024 4:01 PM EDT) [facility] POCT Glucose 249(H) 74 - 99 [...] 10/17/2024 4:03 PM EDT [facility] Coil Cleaner ID Keisha Waller 10/17/2024 4:03 PM EDT HEALTHCARE LAB Device ID [id number] 10/17/2024 4:03 PM EDT HEALTHCARE LAB Specimen Type POC Capillary 10/17/2024 4:03 PM EDT HEALTHCARE LAB Blood Capillary blood specimen / Unknown 10/17/2024 4:01 PM EDT 10/17/2024 4:03 PM EDT us Terrell Gautam MD LAB POINT OF CARE TE ST DOCKED DEVICE UNSOLICITED RESULTS Final Result Performing Organization Address City/[facility] Co de Phone Number HEALTHCARE LAB [address] [place] [address] * (ABNORMAL) POCT glucose meter (10/17/2024 1:25 PM EDT) [facility] Signature POCT Glucose 225(H) 74 - [...] Comment 10/17/2024 1:27 PM EDT HEALTHCARE LAB Coil Cleaner ID Kizzy Godfrey 025 1:27 PM EDT [facility] Device ID [id number] 10/17/2024 1:27 PM EDT HEALTHCARE LAB Specimen Type POC Capillary 10/17/2024 1:27 PM EDT HEALTHCARE LAB Blood Capillary blood specimen / Unknown 10/17/2024 1:25 PM EDT 10/17/2024 1:27 PM EDT us Terrell Gautam MD LAB POINT OF CARE TE ST DOCKED DEVICE UNSOLICITED RESULTS Final Result Performing Organization Address City/[facility] Co de Phone Number HEALTHCARE LAB [address] [place] [address] * [place] Less than 1 Hour Intraoperative (10/17/2024 1:18 PM EDT) Narrative IMAGING - 10/17/2024 2:05 PM EDT Images were obtained for surgical purposes. See Terrell Gautam's surgical note in the patient's chart for the findings. us Terrell Gautam MD IMG FLUOROSCOPY PROCEDURES Fi nal Result IMAGING * POCT ACT (10/17/2024 12:23 PM EDT) Pathologist [facility] ACT+ (HIGH RANGE) 211 68 - 600 Seconds 10/29/2024 7:28 AM EDT HEALTHCARE LAB Coil Cleaner ID Donna Mcmillan 10/29/2024 7:28 AM EDT HEALTHCARE LAB ACT Device ID [id number] 10/29/2024 7:28 AM EDT [facility] Comment 10/29/2024 7:28 AM EDT [facility] [...] UNSOLICITED RESULTS Final Result Performing Organization Address [facility] Co de Phone Number [facility] [address] LAB [address] [place] [address] * (ABNORMAL) Blood gas, arterial (10/17/2024 11:48 [...] 10/17/2024 11:53 AM EDT us Jenna Lopez M[employer] HE[employer] ASSOC[employer]ATE LAB BLOOD ORDERABLES Final Re sult [facility] [address] [place] [address] * POCT ACT (10/17/2024 11:41 AM EDT) ACT+ (HIGH RANGE) 175 68 - 600 Seconds 10/29/2024 7:28 AM EDT [facility] Coil Cleaner ID Oneyda Alicea 10/29/2024 7:28 AM EDT HEALTHCARE LAB ACT Device ID [id number] 10/29/2024 7:28 AM EDT [facility] [...] Co de Phone Number HEALTHCARE LAB [address] LAB [address] [place] [address] * POCT ACT (10/17/2024 11:11 AM EDT) [facility] ACT+ (HIGH RANGE) 252 68 - 600 Seconds 10/29/2024 7:28 AM EDT [facility] Coil Cleaner ID Donna Mcmillan 10/29/2024 7:28 AM EDT HEALTHCARE LAB ACT Device ID [id number] 10/29/2024 7:28 AM EDT [facility] [...] Co de Phone Number HEALTHCARE LAB [address] [place] [address] * (ABNORMAL) Blood gas, arterial (10/17/2024 10:46 [...] 10/17/2024 10:54 AM EDT us Jenna Lopez MENTAL HEALTH ASSOCIATE LAB BLOOD ORDERABLES Final Re sult [facility] [address] [place] [address] * POCT ACT (10/17/2024 10:37 AM EDT) ACT+ (HIGH RANGE) 206 68 - 600 Seconds 10/29/2024 7:28 AM EDT HEALTHCARE LAB Coil Cleaner ID Donna Mcmillan 10/29/2024 7:28 AM EDT [facility] ACT Device ID [id number] 10/29/2024 7:28 AM EDT [facility] Comment 10/29/2024 7:28 AM EDT [facility] Comment: ACT performed by staff at point [...] UNSOLICITED RESULTS Final Result Performing Organization Address [facility] Co de Phone Number [facility] [address] [place] [address] * Surgical Pathology Exam (10/17/2024 10:27 AM EDT) Case Report Surgical Pathology Case: [id number] Authorizing Provider: Terrell Gautam MD Collected: 10/17/2024 1027 Ordering Location: [facility] A OPERATING ROOM Received: 10/17/2024 [...] cm. The specimen is serially sectioned and logistics service representative sections are submitted in cassette A1. Cold Time: <1m Kenia C Yola 10/21/2024 10:16 AM EDT [facility] [...] grimaldo Result [facility] [address] [place] [address] * POCT ACT (10/17/2024 10:03 AM EDT) ACT+ (HIGH RANGE) 244 68 - 600 Seconds 10/29/2024 7:28 AM EDT HEALTHCARE LAB Coil Cleaner ID Donna Mcmillan 10/29/2024 7:28 AM EDT HEALTHCARE LAB ACT Device ID [id number] 10/29/2024 7:28 AM EDT HEALTHCARE LAB Comment [...] DEVICE UNSOLICITED RESULTS Final Result [facility] [address] LAB [address] [place] [address] * (ABNORMAL) Blood gas, arterial (10/17/2024 9:45 [...] Re sult [facility] [address] [place] [address] * (ABNORMAL) Blood gas, arterial (10/17/2024 8:47 [...] ORDERABLES Final Re sult Performing Organization Address City/State/[facility] de Phone Number [facility] [address] [place] [address] * POCT ACT (10/17/2024 8:46 AM EDT) ACT+ (HIGH RANGE) 101 68 - 600 Seconds 10/29/2024 7:28 AM EDT HEALTHCARE LAB Coil Cleaner ID Donna Mcmillan 10/29/2024 7:28 AM EDT [facility] ACT Device ID [id number] 10/29/2024 7:28 AM EDT HEALTHCARE LAB Comment [...] RESULTS Final Result [facility] [address] LAB [address] [place] [address] * Type and Screen (10/17/2024 7:19 AM EDT) [facility] ABO/Rh A Negative 10/17/2024 7:04 AM EDT BLOOD BANK Antibody Screen Negative 10/17/2024 7:04 AM EDT BLOOD BANK Specimen Expiration 10/20/2024 23:59 10/17/2024 7:04 AM EDT BLOOD BANK Blood Venous blood specimen / Unknown Venipuncture / Unknown 10/17/2024 7:19 AM EDT 10/17/2024 7:28 AM EDT Maria Fernanda Mccallum MD LAB BLOOD BANK TEST ORDERAB LES Final Result Performing Organization Address [facility] de Phone Number BLOOD BANK [address] [place] [address], * (ABNORMAL) POCT glucose meter (10/17/2024 6:44 AM EDT) [facility] POCT Glucose 178(H) 74 - 99 [...] 10/17/2024 6:49 AM EDT [facility] Coil Cleaner ID Hunter Burroughs 10/18/19 6:49 AM EDT [facility] Device ID [id number] 10/17/2024 6:49 AM EDT [facility] Specimen Type POC Capillary 10/17/2024 6:49 AM EDT HEALTHCARE LAB Blood Capillary blood specimen / Unknown 10/17/2024 6:44 AM EDT 10/17/2024 6:49 AM EDT us Terrell Gautam MD LAB POINT OF CARE TE ST DOCKED DEVICE UNSOLICITED RESULTS Final Result [facility] [address] [place] [address] documented in this encounter Visit Diagnoses Diagnosis [...] - Preprocedure 07 (Given - Provider: Tanja Dneise, CHRISTIAN)194 (Given - Provider: Jourdan Grimes II, [...] severe pain 1856 (Given - Provider: Keisha aWller, CHRISTIAN)2302 (Given - Provider: Jourdan Grimes II [...] documented as of this encounter Care Teams Lighter Relationship Specialty Start Date End Date Asad Victor MD [address] [place] [id number] PCP - General 10/07/22 documented as of this encounter
--- OUTSIDE RECORDS SUMMARY | 2024-10-17 07:51 | XMS_ITS | Encounter Summary ---
Author Organization [facility] Address [address] [id number] Care Team Providers Care Clinical Genetics Laboratory Chief Name Role Phone Asad Victor MD Primary Care Provider + [phone] Reason for Visit * Auth/Cert (Routine) Specialty Diagnoses / Procedures Referred By Contac t Referred To Contact Diagnoses Critical limb ischemia of left lower extremity Critical limb ischemia of left lower extremity [I70.222] Procedures [place] VEIN BYPASS GRAFT,FEM-POP CREATION, BYPASS, ARTERIAL, FEMORAL TO POPLITEAL Terrell Gautam MD [address] [facility] [address] [place] [address] Phone: tel: fax: PAV A OPERATING ROOM [address] [place] [address] Phone: tel: Referral ID Status Reason Start Date Expiration Date Visits Re quested Visits Authorized [id number] 1 1 Encounter Details Date Type Department Care Team (Late st Contact Info) Description 10/17/2024 7:51 AM EDT Anesthesia Event [facility] A OPERATING ROOM [address] [place] [address] Maria Fernanda Mccallum MD [address] [place] [address] Anesthesia Record Procedure Summary Procedure [...] Hand; Site Prep: Chlorhexidine ; Local Anesth: Ava; Technique: Anatomical landmarks; Inserted by: CHRISTIAN Acuna; [...] any time in the past 12 m [facility], were you homeless or living [...] drink first t dino in the morning (EYE-TUNNEL ELASTIC OPERATOR ZIGZAG) to steady your nerves or to get [...] * Anesthesia Postprocedure Evaluation - Jenna Lopez, COMMUNICATION AND OUTREACH MANAGER - 10/17/2024 1:29 PM EDT Patient: [...] by Swetha Villareal MD Staffing Performed: ISH COMMUNICATION AND OUTREACH MANAGER: Jenna Lopez CRNA * Anesthesia Procedure Notes - Jenna Lopez CRNA - 10/17/2024 9:00 AM EDT Associated Order(s): Airway Airway Date/Time: 10/17/2024 8:03 AM Reason: elective Airway not difficult General Information and Staff Patient location during procedure: OR COMMUNICATION AND OUTREACH MANAGER: Jenna Lopez CRNA Performed: COMMUNICATION AND OUTREACH MANAGER Patient Condition Indications for airway management: [...] T2DM, HLD, HTN, RLS who presented to [facility] with a large left common [...] CEA 2016 + 3rd degree AV block BEFORE SCHOOL BABYSITTER-P placed 08/2023 for Wenkeback with 11 sec pause + HLD + HTN - controlled + PAD 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 CORONARY ANGIOPLASTY Left Coronary Angiography With Concomitant Left Heart Catheterization from [employer] ??? CORONARY ARTERY BYPASS GRAFT N/A 2018 [...] Appointment [facility] [address] [place] [address] 12/19/2024 8:00 AM EDT Appointment [facility] [address] [place] [address] 12/19/2024 9:00 AM EDT Office Visit [facility] [address] [place] [address] Nathaly Nowak MD [address] [facility] [address] [place] [address] documented as of this encounter Goals Goal [...] ANESTHESIA PLACEHOLDER Routine 10/17/2024 8:03 AM EDT [place] AN ELECTIVE ENDOTRACHEAL AIRWAY Routine 10/17/2024 8:03 [...] by Swetha Villareal MD Staffing Performed: ISH COMMUNICATION AND OUTREACH MANAGER: Jenna Lopez CRNA Maria Fernanda Mccallum MD ANESTHESIA ORDERABLES Edite d Result - Final * [place] AN ELECTIVE ENDOTRACHEAL AIRWAY, PB ANESTHESIA PLACEHOLDER (10/17/2024 8:03 AM EDT) Jenna Martinez CRNA - 10/17/2024 8:03 AM EDT Jenna Lopez CRNA 10/17/2024 9:00 AM Airway Date/Time: 10/17/2024 8:03 AM Reason: elective Airway not difficult General Information and Staff Patient location during procedure: OR COMMUNICATION AND OUTREACH MANAGER: Jenna Lopez CRNA Performed: COMMUNICATION AND OUTREACH MANAGER Patient Condition Indications for airway management: [...] Mccallum MD ANESTHESIA ORDERABLES Final Result * [facility] AN POCUS CARDIAC PROCDOC (10/17/2024 7:18 AM [...] Trace AR. The images were Saved in [employer]. The study was technically adequate. Comments: [...] documented as of this encounter Care Teams Clinical Genetics Laboratory Chief Relationship Specialty Start Date End Date Asad Victor MD [address] [facility] [place] [phone] PCP - General 10/07/22 documented as of this encounter
--- OUTSIDE RECORDS SUMMARY | 2024-10-17 08:00 | XMS_ITS | Encounter Summary ---
Author Organization [facility] Address [address] [place] [address] Care Team Providers Care Tailman Name Role Phone Asad Victor MD Primary Care Provider + [phone] Reason for Visit * Auth/Cert (Routine) Specialty Diagnoses / Procedures Referred By Contac t Referred To Contact Diagnoses Critical limb ischemia of left lower extremity Critical limb ischemia of left lower extremity [I70.222] Procedures IA VEIN BYPASS GRAFT,FEM-POP CREATION, BYPASS, ARTERIAL, FEMORAL TO POPLITEAL Terrell Gautam MD [address] [address] Phone: tel: fax: [facility] [address] [place] [address] Phone: tel: Referral ID Status Reason Start Date Expiration Date Visits Re quested Visits Authorized [id number] 1 1 Encounter Details Date Type Department Care Team (Late st Contact Info) Description 10/17/2024 8:00 AM EDT - 10/17/2024 2:50 PM EDT Surgery [facility] [address] [place] [address] Terrell Gautam MD [address] [address] CREATION, BYPASS, ARTERIAL, FEMORAL TO POPLITEAL [37456 (CPT )] Surgery Details Date/Time Status Location [...] drink first t dino in the morning (EYE-LIVESTOCK SHOWMAN) to steady your nerves or to get rid of a hangover? 0 10/18/2021 CAGE Questionnaire Score 0 022 Utilities Answer Date Recorded In the past 12 months has th e [employer], gas, oil, or water [employer] threatened to shut off services in your [...] this encounter Discharge Instructions * Discharge Instructions* Ashlye Moore MD - 10/19/2024 11:00 AM EDT [...] Keyla Chow Outcome: Met 10/19/2024 1048 by Kyela Chow Outcome: Ongoing, Progressing Goal: Absence of [...] provided Taken 10/17/20242107 by Jourdan Grimes II, street light cleaner Review/Management: medications reviewed Problem: Skin Injury Risk [...] Ongoing, Progressing Intervention: Promote Activity and Functional [place] Flowsheets (Taken 10/19/2024 1048) Self-Care Promotion: BADL personal objects within reach meal set-up provided * Yuni Ramires - Keyla Chow - 10/19/2024 11:45 AM EDT Images from the original note were not included. [id number] After Peripheral Artery Bypass Surgery: In the [...] home. Last Reviewed Date: 2023 00:00:00 ?? [id number] [employer]. All rights reserved. This information is not intended as a substitute for professional medical care. Always follow your healthcare professional's instructions. * Progress Notes - Emelina Friend - 10/19/2024 11:44 AM EDT Case Management Adult Progress Note Bev Bobby 64 y.o. male CSN: [id number] Admission: 10/17/2024 6:21 AM Primary Problem: Critical [...] if any other needs arise. Emelina Friend DEPUTY BUILDING GUARD, SENIOR CONSTRUCTION MANAGER Social Work Case Management * Yuni Ramires - Keyla Chow - 10/19/2024 11:44 AM EDT Images from the original note were not included. [id number] Peripheral Artery Disease (PAD) Peripheral artery disease [...] cause. Last Reviewed Date: 2024 00:00:00 ?? [id number] [employer]. All rights reserved. This information is not intended as a substitute for professional medical care. Always follow your healthcare professional's instructions. * Yuni Ramires - Keyla Chow - 10/19/2024 11:44 AM EDT Images from the original note were not included. [id number] Leg Artery Emergencies: Critical Limb Ischemia (CLI) [...] appointments. Last Reviewed Date: 2023 00:00:00 ?? [id number] [employer]. All rights reserved. This information is not intended as a substitute for professional medical care. Always follow your healthcare professional's instructions. * Discharge Summary - Dandy Baltazar MD - 10/19/2024 11:31 AM EDT Hospitalization Admit Date/Time: 10/17/2024 6:21 AM Admitting Attending: Terrell Gautam Discharge Date: 10/19/24 Discharge Attending Physician: Nirmal Cueto MD PCP name and Address: Asad Victor MD (Inactive) [address] [facility] [address] Referring provider name and address: Timothy Marques PA [address] [place] [address] Chief Concern, Brief History of Present Illness, and Hospital Course Bev Bobby is an 64 y.o. 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 [...] were sent to [facility] [place], [place] - [address] [facility] [address] [facility] [facility] [address] acetaminophen 500 MG tablet clopidogrel 75 MG [...] of water. 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 [...] provided Taken 10/17/20242107 by Jourdan Grimes II street light cleaner Review/Management: medications reviewed Problem: Skin Injury Risk [...] Ongoing, Progressing Intervention: Promote Activity and Functional [place] Flowsheets (Taken 10/19/2024 1048) Self-Care Promotion: BADL [...] evaluation. PARTICIPANTS IN CARE Visitors Present No Cooker Loader (if applicable) PRESENTATION Oxygen Oxygen Therapy: None [...] Level of Mobility Ambulatory- household only Mobility [place] Independent gait with device (rollator) History of [...] numbness in rodney) BED MOBILITY Level of [place] Physical/Non- physical Assist Adaptive Equipment Utilized Rolling/ Turning Scooting/ Bridging Modified independence (anteriorly to EOB) Bed rails Supine to Sit Modified [place] (to the right) (HOB flat) Bed rails Sit to Supine Interventions HOB flat to simulate home environment TRANSFERS Level of [place] Physical/Non- physical Assist Adaptive Equipment Utilized Sit [...] stable surfaces during transitions. AMBULATION Level of [place] Distance Adaptive Equipment Utilized Ambulation Standby assist, [...] Posture: Forward head, Rounded shoulders Level of [place] Balance Support Interventions Static Sit Independent Right [...] Assessments Standardized Assessments: AMPA 6-Clicks Mobility Assessment [facility] 6-Clicks Mobility Assessment Difficulty patient has turning [...] 3-5 steps with a railing?: A little [facility] 6-Clicks Mobility Assessment Total : 22 ASSESSMENT [...] evaluation/session. Participants in Care Family/Caregiver Present: No Cooker Loader: Not Applicable Presentation Oxygen Therapy: None (Room [...] Level of Mobility: Ambulatory- household only Mobility [place]: Independent gait with device (rollator) History of [...] Mobility Bed Mobility Exam: Scooting/Bridging Level of [place]: Modified independence (anteriorly to EOB) Assistive Device: Bed rails Bed Mobility Exam: Supine to Sit Level of [place]: Modified [place] (to the right) Physical/Nonphysical Assist: (HOB flat) Assistive Device: Bed rails Transfers Transfer Exam: Sit to stand Level of [place]: Stand-by assist Physical/Nonphysical Assist: Supervision, Verbal Cues, Minimal cues Assistive Device: Walker, rolling Transfer Exam: Stand to Sit Level of [place]: Stand-by assist Physical/Nonphysical Assist: Supervision, Verbal Cues, [...] regarding toileting at this time. Standardized Assessments [facility] 6-Click Daily Activities Help from Other: Don/Doff Regular Lower Body Clothings: None Help From Other: Bathing: Little Help From Other: Toileting: None Help From Other: Don/Doff Upper Body Clothings: None Help From Other: Grooming: None Help From Other: Eating Meals: None [facility] 6 Click - Daily Activities Score: 23/24 [facility] Scoring Interpretation: Scores greater than 20.5 suggest [...] Note Bev Bobby 64 y.o. male CSN: [id number] Admission: 10/17/2024 6:21 AM Primary Problem: Critical limb ischemia of left lower extremity Senior Ios Developer reviewed chart and spoke with patient to complete this Initial Case Management Assessment. PCP: Asad Victor MD (Inactive) - Dr. Palomo Preferred pharmacy is [facility] Emergency Contact: Extended Emergency Contact Information Primary Emergency Contact: Patti Hill Relation: Sister Cooker Loader needed? No Insurance: Primary Visit Coverage Payer Plan Sponsor Code Group Number Group Name [facility] MEDICARE [facility] MEDICARE REPLACEMENT [id number] Primary Visit Coverage Subscriber Subscriber ID Subscriber Name Subscriber [facility] Subscriber Address [id number] BEV BOBBY [id number] [place] [address] Secondary Visit Coverage Payer Plan Sponsor Code Group Number Group Name [employer] [facility] [facility] Secondary Visit Coverage Subscriber Subscriber ID Subscriber Name Subscriber [facility] Subscriber Address [id number] BEV BOBBY [id number] [place] [address] Patient information: Primary Caregiver: Self Daily Living Activities: Functional Status: Independent Living Arrangements: Alone Type of Residence: Private residence, Single Level [address] [place] [address] Current DME: Equipment Currently Used at Home: joy monterroso Income Information: Income Source: Retired Income/Expense Information: Income meets expenses Current Resources Utilized: Food [place] Housing Circumstances-Z Codes: Housing Circumstances (select all [...] Dialysis Services: None. Living Will/Advance Directive/Power of Graphics Artist /Guardian: Denied. Additional Comments: Patient is not medically ready for discharge. SW will continue to follow. Mariia Monterroso SENIOR CONSTRUCTION MANAGER * Care Plan - Emilia Alonso RN [...] from the original note were not included. [facility] Department of Surgery Division of Vascular [...] Prevention: activity supervised assistive device/personal items within [facility] fall prevention program maintained lighting [...] Agree with above assessment and evaluation from resident/SEAMING INSPECTOR. * Op Note - Terrell Gautam MD - 10/17/2024 8:52 AM EDT Operative Note Date: 10/17/24 Location: [facility] Name: Bev Bobby, : 1960, Diagnoses: Pre-op Diagnosis Critical limb ischemia of left lower extremity Common femoral artery pseudoaneurysm Post-op Diagnosis Critical limb ischemia of left lower extremity Common femoral artery pseudoaneurysm Procedure(s): Left common/superficial/profunda femoral thromboendarterectomy with bovine patch repair Left external iliac artery/PONY CYLINDER PRESS OPERATOR stent Attending Surgeon(s): * Terrell Gautam - Primary Alcohol Rubber(s): * Luna Beckett MD - Resident - [...] Necessity Reasons Recent surgery contiguous with urinary tract/BRAIDING MACHINE OPERATOR/colorectal 10/17/24 190 Output (mL) 50 mL 10/18/24 08 Implants Type Name Action Serial No. VASCUGUARD 8 X 8 - [id number] Implanted STENT ENDOPROSTHESIS VIABAHN 9FR [id number] - [id number] Implanted [id number] Specimen: Specimens ID Source Frozen? 1 Other [...] and distal control. We then proceeded with tahdn-slf-sawb exposure of the popliteal artery. A medial [...] balloon dilated thestent with a 9 mm [place]. We closed the arteriotomy with a single [...] 10/17/2024 8:52 AM EDT Date: 10/17/24 Location: [facility] Name: eBv Bobby, : 1960, Diagnoses: Pre-op Diagnosis Critical limb ischemia of left lower extremity Common femoral artery pseudoaneurysm Post-op Diagnosis Critical limb ischemia of left lower extremity Common femoral artery pseudoaneurysm Procedure(s): Left common/superficial/profunda femoral thromboendarterectomy with bovine patch repair Left external iliac artery/PONY CYLINDER PRESS OPERATOR stent Attending Surgeon(s): * Terrell Gautam - Primary Alcohol Rubber(s): * Luna Beckett MD - Resident - Assisting * Dandy Baltazar MD - Fellow Anesthesia: General ASA: III Blood Administration: Blood Product Administration History None Estimated Blood Loss: 300 mL Drains: Urethral Catheter Temperature probe 16 Fr. (Active) Implants Type Name Action Serial No. VASCUGUARD 8 X 8 - [id number] Implanted STENT ENDOPROSTHESIS VIABAHN 9FR [id number] - [id number] Implanted [id number] Specimen: Specimens ID Source Frozen? 1 Other [...] issues. 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 He previouslyunderwent thrombin injection. He reports pain in his calves. He presents today for scheduled left lower extremity femoral to izotd-eqv-nybm popliteal bypass. Planned likely use PTFE. He [...] 16. Results Review {Vanishing Link Review Results :[id number] I have reviewed the latest lab and imaging results. Assessment & Plan Critical limb ischemia of left lower extremity Proceed with scheduled surgery left lower extremity femoral to uryzl-hxu-zmnc popliteal artery bypass graft. Extensive discussion had [...] Info) Description 12/19/2024 7:30 AM EDT Appointment [facility] [address] [place] [address] 12/19/2024 8:00 AM EDT Appointment [facility] [address] [place] [address] 12/19/2024 9:00 AM EDT Office Visit [facility] [address] [place] [address] Nathaly Nowak MD [address] [facility] [address] [place] [address] Pending Results Name Type Priority Associated Diagnoses [...] lower extremity Pseudoaneurysm of left femoral artery ([facility]/HCC) Expected: 11/19/2024, Expires: 04/22/2026 documented as of [...] - 99 mg/dL 10/19/2024 11:42 AM EDT [employer] [facility] Comment:Accuracy of a glucos e result [...] Comment 10/19/2024 11:42 AM EDT HEALTHCARE LAB [employer] History Teacher ID Job Andrew 10/20/19 11:42 AM EDT HEALTHCARE LAB Device ID [id number] 10/19/2024 11:42 AM EDT HEALTHCARE LAB Specimen Type POC Capillary 10/19/2024 11:42 AM EDT [facility] Blood Capillary blood specimen / Unknown 10/19/2024 11:40 AM EDT 10/19/2024 11:42 AM EDT us Terrell Gautam MD LAB POINT OF CARE TE ST DOCKED DEVICE UNSOLICITED RESULTS Final Result Performing Organization Address City/[facility]/ZIP Co de Phone Number [facility] [address] [place] [address] * (ABNORMAL) Protime-INR (10/19/2024 8:25 AM EDT) Prothrombin Time 17.5(H) 12.0 - 14.3 sec LAB COAGULATION METHOD 10/19/2024 9:25 AM EDT [facility] INR 1.4(H) 0.9 - 1.1 LAB COAGULATION METHOD 10/19/2024 9:25 AM EDT [facility] Blood Venous blood specimen / Unknown Venipuncture / Unknown 10/19/2024 8:25 AM EDT 10/19/2024 8:43 AM EDT Narrative [facility] - 10/19/2024 9:25 AM EDT OPTIMAL [...] BLOOD ORDERABLES Final Result Performing Organization Address City/[facility]/ZIP Co de Phone Number [facility] [address] [place] [address] * (ABNORMAL) Phosphorus (10/19/2024 8:25 AM EDT) Phosphorus, Plasma 2.2(L) 2.5 - 4.5 mg/dL 10/19/2024 9:12 AM EDT [facility] Blood Venous blood specimen / Unknown Venipuncture / Unknown 10/19/2024 8:25 AM EDT 10/19/2024 8:43 AM EDT Nirmal Cueto MD LAB BLOOD ORDERABLES Final Result [facility] [address] [place] [address] * Magnesium (10/19/2024 8:25 AM EDT) Magnesium, Plasma 2.1 1.9 - 2.4 mg/dL 10/19/2024 9:12 AM EDT [facility] Blood Venous blood specimen / Unknown Venipuncture / Unknown 10/19/2024 8:25 AM EDT 10/19/2024 8:43 AM EDT Nirmal Cueto MD LAB BLOOD ORDERABLES Final Result [facility] [address] [place] [address] * (ABNORMAL) Basic metabolic panel (10/19/2024 8:25 AM EDT) Glucose, Plasma 191(H) 74 - 99 mg/dL 10/19/2024 9:12 AM EDT [facility] BUN, Plasma 18 8 - 23 mg/dL 10/19/2024 9:12 AM EDT [facility] Creatinine, Plasma 0.76 0.70 - 1.20 mg/dL 10/19/2024 9:12 AM EDT [facility] BUN/Creatinine Ratio 24 10/19/2024 9:12 AM EDT [facility] Sodium, Plasma 135(L) 136 - 145 mmol/L 10/19/2024 9:12 AM EDT [facility] Potassium, Plasma 4.1 3.6 - 4.9 mmol/L 10/19/2024 9:12 AM EDT [facility] Chloride, Plasma 104 97 - 107 mmol/L 10/19/2024 9:12 AM EDT [facility] CO2, Plasma 22 22 - 29 mmol/L 10/19/2024 9:12 AM EDT [facility] Anion Gap 9 6 - 16 mmol/L 10/19/2024 9:12 AM EDT [facility] Total Calcium, Plasma 8.4(L) 8.9 - 10.2 mg/dL 10/19/2024 9:12 AM EDT [facility] eGFRcr 99.7 mL/min/1.7 3m*2 10/19/2024 9:12 AM EDT [facility] Comment:Reported eGFRcr in m L/min/1.73m2 is based the CKD-EPI 2020 equation that does not use a race coefficient. Blood Venous blood specimen / Unknown Venipuncture / Unknown 10/19/2024 8:25 AM EDT 10/19/2024 8:43 AM EDT us Nirmal Cueto MD LAB BLOOD ORDERABLES Final Result [facility] [address] [place] [address] * (ABNORMAL) CBC W/O Differential (10/19/2024 8:25 AM EDT) WBC Count 14.10(H) 3.70 - 10.30 10*3/uL LAB HEMATOLOGY METHOD 10/19/2024 8:52 AM EDT [facility] RBC Count 2.61(L) 4.60 - 6.10 10*6/uL LAB HEMATOLOGY METHOD 10/19/2024 8:52 AM EDT [facility] HGB 8.0(L) 13.7 - 17.5 g/dL LAB HEMATOLOGY METHOD 10/19/2024 8:52 AM EDT [facility] HCT 24.3(L) 40.0 - 51.0 % LAB HEMATOLOGY METHOD 10/19/2024 8:52 AM EDT [facility] Platelet Count 318 155 - 369 10*3/uL LAB HEMATOLOGY METHOD 10/19/2024 8:52 AM EDT [facility] MCV 93 79 - 98 fL LAB HEMATOLOGY METHOD 10/19/2024 8:52 AM EDT [facility] MCH 30.7 26.0 - 32.0 pg LAB HEMATOLOGY METHOD 10/19/2024 8:52 AM EDT [facility] MCHC 32.9 30.7 - 35.5 g/dL LAB HEMATOLOGY METHOD 10/19/2024 8:52 AM EDT [facility] RDW 13.4 11.5 - 14.5 % LAB HEMATOLOGY METHOD 10/19/2024 8:52 AM EDT [facility] MPV 9.6 8.8 - 12.5 fL LAB HEMATOLOGY METHOD 10/19/2024 8:52 AM EDT [facility] nRBC 0.0 <=0.0 per 100 WBCs LAB HEMATOLOGY METHOD 10/19/2024 8:52 AM EDT [facility] Blood Venous blood specimen / Unknown Venipuncture / Unknown 10/19/2024 8:25 AM EDT 10/19/2024 8:44 AM EDT Nirmal Cueto MD LAB BLOOD ORDERABLES Final Result [facility] [address] [place] [address] * (ABNORMAL) POCT glucose meter (10/19/2024 7:35 [...] Comment 10/19/2024 7:37 AM EDT [facility]ALTHCARE LAB High School History Teacher ID KamranJob 10/20/19 7:37 AM EDT [employer] [facility] Device ID [id number] 10/19/2024 7:37 AM EDT [facility] Specimen Type POC Capillary 10/19/2024 7:37 AM EDT [facility] Blood Capillary blood specimen / Unknown 10/19/2024 7:35 AM EDT 10/19/2024 7:37 AM EDT Terrell Gautam MD LAB POINT OF CARE TE ST DOCKED DEVICE UNSOLICITED RESULTS Final Result Performing Organization Address City[facility] Co de Phone Number [facility] [address] [place] [address] * (ABNORMAL) POCT glucose meter (10/18/2024 7:22 [...] 10/18/2024 7:24 PM EDT [facility] High School History Teacher ID Mahesh Aldana 10/18/2024 7:24 PM EDT HEALTHCARE LAB Device ID [id number] 10/18/2024 7:24 PM EDT [facility]ALTH[facility]ARE LAB Specimen Type POC Capillary 10/18/2024 7:24 PM EDT [facility] Blood Capillary blood specimen / Unknown 10/18/2024 7:22 PM EDT 10/18/2024 7:24 PM EDT us Terrell Gautam MD LAB POINT OF CARE TE ST DOCKED DEVICE UNSOLICITED RESULTS Final Result Performing Organization Address City[facility] Co de Phone Number [facility] [address] [place] [address] * (ABNORMAL) POCT glucose meter (10/18/2024 6:07 [...] 10/18/2024 6:09 PM EDT [facility] High School History Teacher ID David Parks 10/18/2024 6:09 PM EDT [facility] Device ID [id number] 10/18/2024 6:09 PM EDT [facility] Specimen Type POC Capillary 10/18/2024 6:09 PM EDT [facility]ALTH[facility]ARE LAB Blood Capillary blood specimen / Unknown 10/18/2024 6:07 PM EDT 10/18/2024 6:09 PM EDT Terrell Gautam MD LAB POINT OF CARE TE ST DOCKED DEVICE UNSOLICITED RESULTS Final Result Performing Organization Address City/State/[facility] Co de Phone Number [facility] [address] [place] [address] * (ABNORMAL) POCT glucose meter (10/18/2024 11:56 AM EDT) [facility] POCT Glucose 233(H) 74 - 99 mg/dL [...] 10/21/2024 7:42 AM EDT [facility] High School History Teacher ID Venessa Marcano 10/21/2024 7:42 AM EDT [facility] Device ID [id number] 10/21/2024 7:42 AM EDT HEALTHCARE LAB Specimen Type POC Capillary 10/21/2024 7:42 AM EDT [facility]ALTH[facility]ARE LAB Blood Capillary blood specimen / Unknown 10/18/2024 11:56 AM EDT 10/21/2024 7:42 AM EDT Terrell Gautam MD LAB POINT OF CARE TE ST DOCKED DEVICE UNSOLICITED RESULTS Final Result Performing Organization Address City[facility] de Phone Number [facility] [address] [place] [address] * (ABNORMAL) POCT glucose meter (10/18/2024 9:24 [...] for testing. Comment 10/21/2024 7:42 AM EDT [facility] High School History Teacher ID Emilia Alonso 7:42 AM EDT HEALTHCARE LAB Device ID [id number] 10/21/2024 7:42 AM EDT [facility] Specimen Type POC Venous 10/21/2024 7:42 AM EDT [facility] Blood Venous blood specimen / Unknown 10/18/2024 9:24 AM EDT 10/21/2024 7:42 AM EDT us Terrell Gautam MD LAB POINT OF CARE TE ST DOCKED DEVICE UNSOLICITED RESULTS Final Result Performing Organization Address [facility] Co de Phone Number [facility] [address] [place] [address] * (ABNORMAL) POCT glucose meter (10/18/2024 7:36 [...] Comment 10/18/2024 7:38 AM EDT [facility]ALTHCARE LAB High School History Teacher ID Kizzy Godfrey 025 7:38 AM EDT HEALTHCARE LAB Device ID [id number] 10/18/2024 7:38 AM EDT [facility] LAB Specimen Type POC Capillary 10/18/2024 7:38 AM EDT [facility] Blood Capillary blood specimen / Unknown 10/18/2024 7:36 AM EDT 10/18/2024 7:38 AM EDT us Terrell Gautam MD LAB POINT OF CARE TE ST DOCKED DEVICE UNSOLICITED RESULTS Final Result Performing Organization Address City/State/[facility] Co de Phone Number [facility] [address] [place] [address] * (ABNORMAL) CBC (10/18/2024 2:09 AM EDT) WBC Count 16.71(H) 3.70 - 10.30 10*3/uL LAB HEMATOLOGY METHOD 10/18/2024 2:33 AM EDT [facility] RBC Count 2.78(L) 4.60 - 6.10 10*6/uL LAB HEMATOLOGY METHOD 10/18/2024 2:33 AM EDT [facility] HGB 8.5(L) 13.7 - 17.5 g/dL LAB HEMATOLOGY METHOD 10/18/2024 2:33 AM EDT [facility] HCT 25.7(L) 40.0 - 51.0 % LAB HEMATOLOGY METHOD 10/18/2024 2:33 AM EDT [facility] Platelet Count 324 155 - 369 10*3/uL LAB HEMATOLOGY METHOD 10/18/2024 2:33 AM EDT [facility] MCV 92 79 - 98 fL LAB HEMATOLOGY METHOD 10/18/2024 2:33 AM EDT [facility] MCH 30.6 26.0 - 32.0 pg LAB HEMATOLOGY METHOD 10/18/2024 2:33 AM EDT [facility] MCHC 33.1 30.7 - 35.5 g/dL LAB HEMATOLOGY METHOD 10/18/2024 2:33 AM EDT [facility] RDW 13.3 11.5 - 14.5 % LAB HEMATOLOGY METHOD 10/18/2024 2:33 AM EDT [facility] [facility] MPV 9.4 8.8 - 12.5 fL LAB HEMATOLOGY METHOD 10/18/2024 2:33 AM EDT [facility] nRBC 0.0 <=0.0 per 100 WBCs LAB HEMATOLOGY METHOD 10/18/2024 2:33 AM EDT [facility] Blood Venous blood specimen / Unknown Venipuncture / Unknown 10/18/2024 2:09 AM EDT 10/18/2024 2:25 AM EDT us Nirmal Cueto MD LAB BLOOD ORDERABLES Final Result [facility] [address] [place] [address] * (ABNORMAL) Basic metabolic panel (10/18/2024 2:09 AM EDT) Glucose, Plasma 206(H) 74 - 99 mg/dL 10/18/2024 2:53 AM EDT [facility] BUN, Plasma 24(H) 8 - 23 mg/dL 10/18/2024 2:53 AM EDT [facility] Creatinine, Plasma 1.17 0.70 - 1.20 mg/dL 10/18/2024 2:53 AM EDT [facility] BUN/Creatinine Ratio 21 10/18/2024 2:53 AM EDT [facility] Sodium, Plasma 136 136 - 145 mmol/L 10/18/2024 2:53 AM EDT [facility] Potassium, Plasma 4.8 3.6 - 4.9 mmol/L 10/18/2024 2:53 AM EDT [facility] Chloride, Plasma 104 97 - 107 mmol/L 10/18/2024 2:53 AM EDT [facility] CO2, Plasma 22 22 - 29 mmol/L 10/18/2024 2:53 AM EDT [facility] Anion Gap 10 6 - 16 mmol/L 10/18/2024 2:53 AM EDT [facility] Total Calcium, Plasma 8.5(L) 8.9 - 10.2 mg/dL 10/18/2024 2:53 AM EDT [facility] eGFRcr 69.2 mL/min/1.7 3m*2 10/18/2024 2:53 AM EDT [facility] Comment:Reported eGFRcr in m L/min/1.73m2 is based the CKD-EPI 2020 equation that does not use a race coefficient. Blood Venous blood specimen / Unknown Venipuncture / Unknown 10/18/2024 2:09 AM EDT 10/18/2024 2:25 AM EDT Nirmal Cueto MD LAB BLOOD ORDERABLES Final Result [facility] [address] [place] [address] * (ABNORMAL) Magnesium (10/18/2024 2:09 AM EDT) Magnesium, Plasma 1.8(L) 1.9 - 2.4 mg/dL 10/18/2024 2:53 AM EDT [facility] Blood Venous blood specimen / Unknown Venipuncture / Unknown 10/18/2024 2:09 AM EDT 10/18/2024 2:25 AM EDT Nirmal Cueto MD LAB BLOOD ORDERABLES Final Result Performing Organization Address City/[facility]/ZIP Co de Phone Number [facility] [address] [place] [address] * Phosphorus (10/18/2024 2:09 AM EDT) Phosphorus, Plasma 3.7 2.5 - 4.5 mg/dL 10/18/2024 2:53 AM EDT [facility] Blood Venous blood specimen / Unknown Venipuncture / Unknown 10/18/2024 2:09 AM EDT 10/18/2024 2:25 AM EDT us Nirmal Cueto MD LAB BLOOD ORDERABLES Final Result Performing Organization Address City/[facility]/ZIP Co de Phone Number [facility] [address] [place] [address] * (ABNORMAL) Protime-INR (10/18/2024 2:09 AM EDT) Prothrombin Time 14.5(H) 12.0 - 14.3 sec LAB COAGULATION METHOD 10/18/2024 2:53 AM EDT [facility] INR 1.1 0.9 - 1.1 LAB COAGULATION METHOD 10/18/2024 2:53 AM EDT [facility] Blood Venous blood specimen / Unknown Venipuncture / Unknown 10/18/2024 2:09 AM EDT 10/18/2024 2:25 AM EDT Narrative [facility] - 10/18/2024 2:53 AM EDT OPTIMAL [...] Cueto MD LAB BLOOD ORDERABLES Final Result [facility] [address] [place] [address] * (ABNORMAL) POCT glucose meter (10/18/2024 2:08 AM EDT) POCT Glucose 202(H) 74 - 99 mg/dL 10/18/2024 2:10 AM EDT [facility] Comment:Accuracy of a glucos e result [...] for testing. Comment 10/18/2024 2:10 AM EDT [facility] [employer] Teacher ID Jourdan Grimes II 10/18/2024 2:10 AM EDT [facility] Device ID [id number] 10/18/2024 2:10 AM EDT [facility] Specimen Type POC Capillary 10/18/2024 2:10 AM EDT [facility] Blood Capillary blood specimen / Unknown 10/18/2024 2:08 AM EDT 10/18/2024 2:10 AM EDT Terrell Gautam MD LAB POINT OF CARE TE ST DOCKED DEVICE UNSOLICITED RESULTS Final Result Performing Organization Address City/[facility]/ZIP Co de Phone Number [facility] [address] [place] [address] * (ABNORMAL) POCT glucose meter (10/17/2024 10:07 [...] Comment 10/17/2024 10:10 PM EDT [facility] [employer] Teacher ID Jourdan Grimes II 10/17/2024 10:10 PM EDT [facility] Device ID [id number] 10/17/2024 10:10 PM EDT [facility] Specimen Type POC Capillary 10/17/2024 10:10 PM EDT [facility] Blood Capillary blood specimen / Unknown 10/17/2024 10:07 PM EDT 10/17/2024 10:10 PM EDT us Terrell Gautam MD LAB POINT OF CARE TE ST DOCKED DEVICE UNSOLICITED RESULTS Final Result [facility] [address] [place] [address] * (ABNORMAL) POCT glucose meter (10/17/2024 8:07 [...] Comment 10/17/2024 8:10 PM EDT [facility] [employer] History Teacher ID Jourdan Grimes II 10/17/2024 8:10 PM EDT [facility] Device ID [id number] 10/17/2024 8:10 PM EDT [facility] Specimen Type POC Capillary 10/17/2024 8:10 PM EDT [facility] Blood Capillary blood specimen / Unknown 10/17/2024 8:07 PM EDT 10/17/2024 8:10 PM EDT us Terrell Gautam MD LAB POINT OF CARE TE ST DOCKED DEVICE UNSOLICITED RESULTS Final Result Performing Organization Address City/State/[facility] Co de Phone Number [facility] [address] [place] [address] * (ABNORMAL) POCT glucose meter (10/17/2024 4:01 [...] Comment 10/17/2024 4:03 PM EDT [facility] [employer] Teacher ID Keisha Waller 10/17/2024 4:03 PM EDT [facility] LAB Device ID [id number] 10/17/2024 4:03 PM EDT [facility] Specimen Type POC Capillary 10/17/2024 4:03 PM EDT [facility] Blood Capillary blood specimen / Unknown 10/17/2024 4:01 PM EDT 10/17/2024 4:03 PM EDT us Terrell Gautam MD LAB POINT OF CARE TE ST DOCKED DEVICE UNSOLICITED RESULTS Final Result Performing Organization Address [facility] Co de Phone Number [facility]ARE [facility] [address] [place] [address] * (ABNORMAL) POCT glucose meter (10/17/2024 1:25 PM EDT) [facility] POCT Glucose 225(H) 74 - [...] Comment 10/17/2024 1:27 PM EDT [facility] [employer] Teacher ID Kizzy Godfrey 025 1:27 PM EDT [facility]ARE LAB Device ID [id number] 10/17/2024 1:27 PM EDT [facility] Specimen Type POC Capillary 10/17/2024 1:27 PM EDT [facility] Blood Capillary blood specimen / Unknown 10/17/2024 1:25 PM EDT 10/17/2024 1:27 PM EDT Terrell Gautam MD LAB POINT OF CARE TE ST DOCKED DEVICE UNSOLICITED RESULTS Final Result Performing Organization Address [facility] Co de Phone Number [facility]ARE [facility] [address] [place] [address] * [place] Less than 1 Hour Intraoperative (10/17/2024 1:18 PM EDT) Narrative IMAGING - 10/17/2024 2:05 PM EDT Images were obtained for surgical purposes. See Terrell Gautam's surgical note in the patient's chart for the findings. us Terrell Gautam MD IMG FLUOROSCOPY PROCEDURES Fi nal Result Performing Organization Address [facility]/ZIP Co de Phone Number IMAGING * POCT ACT (10/17/2024 12:23 PM EDT) [facility] ACT+ (HIGH RANGE) 211 68 - 600 Seconds 10/29/2024 7:28 AM EDT [facility]ARE LAB [employer] History Teacher ID Donna Mcmillan 10/29/2024 7:28 AM EDT [facility] ACT Device ID [id number] 10/29/2024 7:28 AM EDT [facility] Comment 10/29/2024 7:28 AM EDT [facility] Comment: ACT performed by staff at [...] UNSOLICITED RESULTS Final Result Performing Organization Address City/State/[facility] Co de Phone Number [facility] [address] [place] [address] * (ABNORMAL) Blood gas, arterial (10/17/2024 11:48 AM EDT) pH, Arterial 7.34 7.31 - 7.42 LAB HEMATOLOGY METHOD 10/17/2024 11:54 AM EDT [facility] pCO2, Arterial 41 32 - 45 mmHg LAB HEMATOLOGY METHOD 10/17/2024 11:54 AM EDT [facility] pO2, Arterial 202 >80 mmHg LAB HEMATOLOGY METHOD 10/17/2024 11:54 AM EDT [facility] SO2, Measured, Arterial 100(H) 94 - 98 % LAB HEMATOLOGY METHOD 10/17/2024 11:54 AM EDT [facility] Base Excess, Arterial -3.2(L) -2.0 - 3.0 mmol/L LAB HEMATOLOGY METHOD 10/17/2024 11:54 AM EDT [facility] Bicarbonate, Calculated, Arterial 22 22 - 26 mmol/L LAB HEMATOLOGY METHOD 10/17/2024 11:54 AM EDT [facility] Hematocrit, Whole Blood 28.6(L) 40.0 - 51.0 % LAB HEMATOLOGY METHOD 10/17/2024 11:54 AM EDT [facility] Sodium, Whole Blood 137 136 - 145 mmol/L LAB HEMATOLOGY METHOD 10/17/2024 11:54 AM EDT [facility] Potassium, Whole Blood 4.5 3.6 - 4.9 mmol/L LAB HEMATOLOGY METHOD 10/17/2024 11:54 AM EDT [facility] Chloride, Whole Blood 112(H) 97 - 107 mmol/L LAB HEMATOLOGY METHOD 10/17/2024 11:54 AM EDT [facility] Glucose, Whole Blood 201(H) 74 - 99 mg/dL LAB HEMATOLOGY METHOD 10/17/2024 11:54 AM EDT [facility] Ionized Calcium, Whole Blood 4.8 4.6 - 5.1 mg/dL LAB HEMATOLOGY METHOD 10/17/2024 11:54 AM EDT [facility] Lactate, Arterial, Whole Blood 2.3(H) 0.5 - 1.6 mmol/L LAB HEMATOLOGY METHOD 10/17/2024 11:54 AM EDT [facility] Blood Arterial blood specimen / Unknown Arterial Puncture / Unknown 10/17/2024 11:48 AM EDT 10/17/2024 11:53 AM EDT us Jenna Lopez [facility] BLOOD ORDERABLES Final Re sult [facility] [address] [place] [address] * POCT ACT (10/17/2024 11:41 AM EDT) ACT+ (HIGH RANGE) 175 68 - 600 Seconds 10/29/2024 7:28 AM EDT [facility]ARE LAB [employer] Teacher ID Oneyda Alicea 10/29/2024 7:28 AM EDT [facility] ACT Device ID [id number] 10/29/2024 7:28 AM EDT [facility] Comment 10/29/2024 7:28 AM EDT [facility] Comment: ACT performed by staff at [...] UNSOLICITED RESULTS Final Result Performing Organization Address [facility] Co de Phone Number [facility] [address] [facility] [address] [place] [address] * POCT ACT (10/17/2024 11:11 AM EDT) ACT+ (HIGH RANGE) 252 68 - 600 Seconds 10/29/2024 7:28 AM EDT [facility]ARE [facility] [employer] History Teacher ID Donna Mcmillan 10/29/2024 7:28 AM EDT [facility] ACT Device ID [id number] 10/29/2024 7:28 AM EDT [facility] Comment 10/29/2024 7:28 AM EDT [facility] Comment: ACT performed by staff at [...] 11:11 AM EDT 10/29/2024 7:28 AM EDT Terrell Gautam MD LAB POINT OF CARE TE ST DOCKED DEVICE UNSOLICITED RESULTS Final Result Performing Organization Address City/[facility]/ZIP Co de Phone Number [facility] [address] [facility] [address] [place] [address] * (ABNORMAL) Blood gas, arterial (10/17/2024 10:46 AM EDT) pH, Arterial 7.35 7.31 - 7.42 LAB HEMATOLOGY METHOD 10/17/2024 10:56 AM EDT [facility] pCO2, Arterial 42 32 - 45 mmHg LAB HEMATOLOGY METHOD 10/17/2024 10:56 AM EDT [facility] pO2, Arterial 161 >80 mmHg LAB HEMATOLOGY METHOD 10/17/2024 10:56 AM EDT [facility] SO2, Measured, Arterial 100(H) 94 - 98 % LAB HEMATOLOGY METHOD 10/17/2024 10:56 AM EDT [facility] Base Excess, Arterial -2.2(L) -2.0 - 3.0 mmol/L LAB HEMATOLOGY METHOD 10/17/2024 10:56 AM EDT [facility] Bicarbonate, Calculated, Arterial 23 22 - 26 mmol/L LAB HEMATOLOGY METHOD 10/17/2024 10:56 AM EDT [facility] Hematocrit, Whole Blood 29.9(L) 40.0 - 51.0 % LAB HEMATOLOGY METHOD 10/17/2024 10:56 AM EDT [facility] Sodium, Whole Blood 138 136 - 145 mmol/L LAB HEMATOLOGY METHOD 10/17/2024 10:56 AM EDT [facility] Potassium, Whole Blood 4.0 3.6 - 4.9 mmol/L LAB HEMATOLOGY METHOD 10/17/2024 10:56 AM EDT [facility] Chloride, Whole Blood 110(H) 97 - 107 mmol/L LAB HEMATOLOGY METHOD 10/17/2024 10:56 AM EDT [facility] Glucose, Whole Blood 174(H) 74 - 99 mg/dL LAB HEMATOLOGY METHOD 10/17/2024 10:56 AM EDT [facility] Ionized Calcium, Whole Blood 5.1 4.6 - 5.1 mg/dL LAB HEMATOLOGY METHOD 10/17/2024 10:56 AM EDT [facility] Lactate, Arterial, Whole Blood 1.4 0.5 - 1.6 mmol/L LAB HEMATOLOGY METHOD 10/17/2024 10:56 AM EDT [facility] Blood Arterial blood specimen / Unknown Arterial Puncture / Unknown 10/17/2024 10:46 AM EDT 10/17/2024 10:54 AM EDT us Jenna Lopez CRNA LAB BLOOD ORDERABLES Final Re sult [facility] [address] [place] [address] * POCT ACT (10/17/2024 10:37 AM EDT) ACT+ (HIGH RANGE) 206 68 - 600 Seconds 10/29/2024 7:28 AM EDT [facility]ALTHCARE LAB [employer] History Teacher ID Donna Mcmillan 10/29/2024 7:28 AM EDT [facility] ACT Device ID [id number] 10/29/2024 7:28 AM EDT [facility] Comment 10/29/2024 7:28 AM EDT [facility] Comment: ACT performed by staff at [...] UNSOLICITED RESULTS Final Result [facility] [address] LAB [address] [place] [address] * Surgical Pathology Exam (10/17/2024 10:27 AM EDT) Case Report Surgical Pathology Case: [id number] Authorizing Provider: Terrell Gautam MD Collected: 10/17/2024 1027 Ordering Location: [facility] Received: 10/17/2024 1325 Pathologist: Haydee Osborne MD Specimen: Other (specify site), left common femoral plaque 10/21/2024 10:16 AM EDT [facility] Final Diagnosis A. LEFT COMMON FEMORAL PLAQUE, EXCISION: - CALCIFIED PLAQUE 10/21/2024 10:16 AM EDT [facility] at 1016 EDT Clinical Information Critical limb ischemia of left lower extremity [I70.222] 10/21/2024 10:16 AM EDT [facility] Gross Description A. LEFT COMMON FEMORAL PLAQUE Received in formalin labeled l eft common femoral plaque , is one aggregate of red-gabriel hard portions of plaque measuring 3.7 x 2.5 x 0.9 cm. The specimen is serially sectioned and agency sales representative sections are submitted in cassette A1. Cold Time: <1m Kenia Pastor Yola 10/21/2024 10:16 AM EDT [facility] Note: A resident was involved in the service. I attest I examined the relevant preparations for the specimens and confirmed the diagnosis or interpretation. 10/21/2024 10:16 AM EDT [facility] Tissue Topography unknown / Unknown 10/17/2024 10:27 AM EDT 10/17/2024 1:25 PM EDT Comment:Pre-op diagnosis: Critical limb ischemia of left lower extremity [I70.222] us Terrell Gautam MD LAB PATHOLOGY ORDERABLES Gwen l Result Performing Organization Address [facility] Co de Phone Number [facility] [address] [place] [address] * POCT ACT (10/17/2024 10:03 AM EDT) ACT+ (HIGH RANGE) 244 68 - 600 Seconds 10/29/2024 7:28 AM EDT [facility]ALTH[facility]ARE LAB [employer] Teacher ID Donna Mcmilaln 10/29/2024 7:28 AM EDT [facility]ALTH[facility]ARE [facility] ACT Device ID [id number] 10/29/2024 7:28 AM EDT [facility] Comment 10/29/2024 7:28 AM EDT [facility] Comment: ACT performed by staff at [...] UNSOLICITED RESULTS Final Result Performing Organization Address [facility] Co de Phone Number [facility] [address] LAB [address] [place] [address] * (ABNORMAL) Blood gas, arterial (10/17/2024 9:45 AM EDT) pH, Arterial 7.37 7.31 - 7.42 LAB HEMATOLOGY METHOD 10/17/2024 9:55 AM EDT [facility] pCO2, Arterial 43 32 - 45 mmHg LAB HEMATOLOGY METHOD 10/17/2024 9:55 AM EDT [facility] pO2, Arterial 177 >80 mmHg LAB HEMATOLOGY METHOD 10/17/2024 9:55 AM EDT [facility] SO2, Measured, Arterial 100(H) 94 - 98 % LAB HEMATOLOGY METHOD 10/17/2024 9:55 AM EDT [facility] Base Excess, Arterial -0.5 -2.0 - 3.0 mmol/L LAB HEMATOLOGY METHOD 10/17/2024 9:55 AM EDT [facility] Bicarbonate, Calculated, Arterial 25 22 - 26 mmol/L LAB HEMATOLOGY METHOD 10/17/2024 9:55 AM EDT [facility] Hematocrit, Whole Blood 30.0(L) 40.0 - 51.0 % LAB HEMATOLOGY METHOD 10/17/2024 9:55 AM EDT [facility] Sodium, Whole Blood 137 136 - 145 mmol/L LAB HEMATOLOGY METHOD 10/17/2024 9:55 AM EDT [facility] Potassium, Whole Blood 4.3 3.6 - 4.9 mmol/L LAB HEMATOLOGY METHOD 10/17/2024 9:55 AM EDT [facility] Chloride, Whole Blood 108(H) 97 - 107 mmol/L LAB HEMATOLOGY METHOD 10/17/2024 9:55 AM EDT [facility] Glucose, Whole Blood 191(H) 74 - 99 mg/dL LAB HEMATOLOGY METHOD 10/17/2024 9:55 AM EDT [facility] Ionized Calcium, Whole Blood 5.0 4.6 - 5.1 mg/dL LAB HEMATOLOGY METHOD 10/17/2024 9:55 AM EDT [facility] Lactate, Arterial, Whole Blood 1.3 0.5 - 1.6 mmol/L LAB HEMATOLOGY METHOD 10/17/2024 9:55 AM EDT [facility] Blood Arterial blood specimen / Unknown Arterial Line / Unknown 10/17/2024 9:45 AM EDT 10/17/2024 9:52 AM EDT us Jenna Lopez CRNA LAB BLOOD ORDERABLES Final Re sult [facility] [address] [place] [address] * (ABNORMAL) Blood gas, arterial (10/17/2024 8:47 AM EDT) pH, Arterial 7.37 7.31 - 7.42 LAB HEMATOLOGY METHOD 10/17/2024 8:59 AM EDT [facility] pCO2, Arterial 43 32 - 45 mmHg LAB HEMATOLOGY METHOD 10/17/2024 8:59 AM EDT [facility] pO2, Arterial 205 >80 mmHg LAB HEMATOLOGY METHOD 10/17/2024 8:59 AM EDT [facility] SO2, Measured, Arterial 100(H) 94 - 98 % LAB HEMATOLOGY METHOD 10/17/2024 8:59 AM EDT [facility] Base Excess, Arterial -0.3 -2.0 - 3.0 mmol/L LAB HEMATOLOGY METHOD 10/17/2024 8:59 AM EDT [facility] Bicarbonate, Calculated, Arterial 25 22 - 26 mmol/L LAB HEMATOLOGY METHOD 10/17/2024 8:59 AM EDT [facility] Hematocrit, Whole Blood 31.3(L) 40.0 - 51.0 % LAB HEMATOLOGY METHOD 10/17/2024 8:59 AM EDT [facility] Sodium, Whole Blood 138 136 - 145 mmol/L LAB HEMATOLOGY METHOD 10/17/2024 8:59 AM EDT [facility] Potassium, Whole Blood 4.0 3.6 - 4.9 mmol/L LAB HEMATOLOGY METHOD 10/17/2024 8:59 AM EDT [facility] Chloride, Whole Blood 108(H) 97 - 107 mmol/L LAB HEMATOLOGY METHOD 10/17/2024 8:59 AM EDT [facility] Glucose, Whole Blood 162(H) 74 - 99 mg/dL LAB HEMATOLOGY METHOD 10/17/2024 8:59 AM EDT [facility] Ionized Calcium, Whole Blood 5.2(H) 4.6 - 5.1 mg/dL LAB HEMATOLOGY METHOD 10/17/2024 8:59 AM EDT [facility] Lactate, Arterial, Whole Blood 1.7(H) 0.5 - 1.6 mmol/L LAB HEMATOLOGY METHOD 10/17/2024 8:59 AM EDT [facility] Blood Arterial blood specimen / Unknown Arterial Puncture / Unknown 10/17/2024 8:47 AM EDT 10/17/2024 8:58 AM EDT us Jenna Lopez CRNA LAB BLOOD ORDERABLES Final Re sult [facility] [address] [place] [address] * POCT ACT (10/17/2024 8:46 AM EDT) ACT+ (HIGH RANGE) 101 68 - 600 Seconds 10/29/2024 7:28 AM EDT [facility] [employer] History Teacher ID Donna Mcmillan 10/29/2024 7:28 AM EDT [facility] ACT Device ID [id number] 10/29/2024 7:28 AM EDT [facility] Comment 10/29/2024 7:28 AM EDT [facility] Comment: ACT performed by staff at [...] ST DOCKED DEVICE UNSOLICITED RESULTS Final Result [facility] [address] LAB [address] [place] [address] * Type and Screen (10/17/2024 7:19 AM EDT) ABO/Rh A Negative 10/17/2024 7:04 AM EDT [facility] Antibody Screen Negative 10/17/2024 7:04 AM EDT [facility]LO[facility] Specimen Expiration 10/20/2024 23:59 10/17/2024 7:04 AM EDT [facility]LO[facility]ANK Blood Venous blood specimen / Unknown Venipuncture / Unknown 10/17/2024 7:19 AM EDT 10/17/2024 7:28 AM EDT us Maria Fernanda Mccallum MD LAB BLOOD BANK TEST ORDERAB LES Final Result Performing Organization Address City/[facility]/ZIP Co de Phone Number BLOOD BANK [address] [place] [address], * (ABNORMAL) POCT glucose meter (10/17/2024 6:44 AM EDT) [facility] POCT Glucose 178(H) 74 - [...] 10/17/2024 6:49 AM EDT [facility] [employer] History Teacher ID Hunter Burroughs 10/18/19 6:49 AM EDT [facility] Device ID [id number] 10/17/2024 6:49 AM EDT [facility] Specimen Type POC Capillary 10/17/2024 6:49 AM EDT [facility]ALTHCARE LAB Blood Capillary blood specimen / Unknown 10/17/2024 6:44 AM EDT 10/17/2024 6:49 AM EDT us Terrell Gautam MD LAB POINT OF CARE TE ST DOCKED DEVICE UNSOLICITED RESULTS Final Result [facility] [address] [place] [address] documented in this encounter Visit Diagnoses Diagnosis [...] 0809 (Given - Provider: Emilia Alonso, CHRISTIAN) 09 (Given - Provider: Keyla Chow) docusate sodium [...] this time)1730 (Canceled Entry - Provider: Keisha Waller, RN) 0752 (Given - Provider: Emilia Alonso [...] nightly (2099 & 030), First dose on Mon10/18/24 at 2100, Until [...] (Given - Provider: Jourdan Grimes II, CHRISTIAN) 800 (Given - Provider: Emilia Alonso, CHRISTIAN)2001 (Given - Provider: Kassie Mao, CHRISTIAN) 09 (Given - Provider: Keyla Chow) sodium chloride 0.9 % flush 10 mL (CANCELED)(Linked Group 1) 10 mL, Intravenous, Every 12 hours, First dose on Mon10/17/24 at 0745, Until Discontinued, Routine, Holding - Preprocedure 07 (Given - Provider: Tanja Denise, CHRISTIAN)194 (Given - Provider: Jourdan Grimes II, RN) [...] documented as of this encounter Care Teams Tailman Relationship Specialty Start Date End Date Asad Victor MD [address] [place] [id number] PCP - General 10/07/22 documented as of this encounter
--- OUTSIDE RECORDS SUMMARY | 2024-11-05 21:45 | XMS_ITS | Encounter Summary ---
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 Specimen Type POC Capillary 11/13/2024 9:01 PM EDT [facility] Blood Capillary blood specimen / Unknown 11/13/2024 8:55 PM EDT 11/13/2024 9:01 PM EDT Nathaly Nowak MD LAB POINT OF CARE TE ST DOCKED DEVICE UNSOLICITED RESULTS Final Result Performing Organization Address City/[facility]/ZIP Co de Phone Number [facility] [address] [place] [address] * (ABNORMAL) POCT glucose meter (11/13/2024 5:16 PM EDT) [facility] Signature POCT Glucose 149(H) 74 - 99 mg/dL 11/13/2024 5:17 PM EDT [facility] Comment:Accuracy of [...] Comment 11/13/2024 5:17 PM EDT [facility] [employer] Instructor ID Estefani Sheth 11/13/2024 5:17 PM EDT [facility] Device ID [id number] 11/13/2024 5:17 PM EDT [facility] Specimen Type POC Capillary 11/13/2024 5:17 PM EDT [facility] Blood Capillary blood specimen / Unknown 11/13/2024 5:16 PM EDT 11/13/2024 5:17 PM EDT Nathaly Nowak MD LAB POINT OF CARE TE ST DOCKED DEVICE UNSOLICITED RESULTS Final Result [facility] [address] [place] [address] * AL NEGATIVE PRESSURE WOUND THERAPY DME </= 50 [...] Comment 11/13/2024 12:00 PM EDT [facility] [employer] Instructor ID Estefani Sheth 11/13/2024 12:00 PM EDT [facility] Device ID [id number] 11/13/2024 12:00 PM EDT [facility] Specimen Type POC Capillary 11/13/2024 12:00 PM EDT [facility] Blood Capillary blood specimen / Unknown 11/13/2024 11:58 AM EDT 11/13/2024 12:00 PM EDT us Nathaly Nowak MD LAB POINT OF CARE TE ST DOCKED DEVICE UNSOLICITED RESULTS Final Result [facility] [address] [place] [address] * (ABNORMAL) POCT glucose meter (11/13/2024 8:23 AM EDT) POCT Glucose 195(H) 74 - 99 mg/dL 11/13/2024 8:24 AM EDT [facility] Comment:Accuracy of [...] for testing. Comment 11/13/2024 8:24 AM EDT [facility] [employer] Instructor ID Estefani Sheth 11/13/2024 8:24 AM EDT [facility] Device ID [id number] 11/13/2024 8:24 AM EDT [facility] Specimen Type POC Capillary 11/13/2024 8:24 AM EDT [facility] Blood Capillary blood specimen / Unknown 11/13/2024 8:23 AM EDT 11/13/2024 8:24 AM EDT Nathaly Nowak MD LAB POINT OF CARE TE ST DOCKED DEVICE UNSOLICITED RESULTS Final Result Performing Organization Address City/[facility] Co de Phone Number [facility] [address] [place] [address] * (ABNORMAL) Phosphorus, Plasma (11/13/2024 6:37 AM EDT) Phosphorus, Plasma 1.7(L) 2.5 - 4.5 mg/dL 11/13/2024 7:16 AM EDT [facility] Blood Venous blood specimen / Unknown Venipuncture / Unknown 11/13/2024 6:37 AM EDT 11/13/2024 6:44 AM EDT Nathaly Nowak MD LAB BLOOD ORDERABLES Final Resu lt [facility] [address] [place] [address] * Magnesium, Plasma (11/13/2024 6:37 AM EDT) Magnesium, Plasma 2.0 1.9 - 2.4 mg/dL 11/13/2024 7:16 AM EDT [facility] Blood Venous blood specimen / Unknown Venipuncture / Unknown 11/13/2024 6:37 AM EDT 11/13/2024 6:44 AM EDT us Nathaly Nowak MD LAB BLOOD ORDERABLES Final Resu lt [facility] [address] [place] [address] * (ABNORMAL) CBC W/O Differential (11/13/2024 6:37 AM EDT) WBC Count 11.72(H) 3.70 - 10.30 10*3/uL LAB HEMATOLOGY METHOD 11/13/2024 6:51 AM EDT [facility] RBC Count 2.88(L) 4.60 - 6.10 10*6/uL LAB HEMATOLOGY METHOD 11/13/2024 6:51 AM EDT [facility] HGB 8.5(L) 13.7 - 17.5 g/dL LAB HEMATOLOGY METHOD 11/13/2024 6:51 AM EDT [facility] HCT 26.4(L) 40.0 - 51.0 % LAB HEMATOLOGY METHOD 11/13/2024 6:51 AM EDT [facility] Platelet Count 398(H) 155 - 369 10*3/uL LAB HEMATOLOGY METHOD 11/13/2024 6:51 AM EDT [facility] MCV 92 79 - 98 fL LAB HEMATOLOGY METHOD 11/13/2024 6:51 AM EDT [facility] MCH 29.5 26.0 - 32.0 pg LAB HEMATOLOGY METHOD 11/13/2024 6:51 AM EDT [facility] MCHC 32.2 30.7 - 35.5 g/dL LAB HEMATOLOGY METHOD 11/13/2024 6:51 AM EDT [facility] RDW 13.6 11.5 - 14.5 % LAB HEMATOLOGY METHOD 11/13/2024 6:51 AM EDT [facility] MPV 8.9 8.8 - 12.5 fL LAB HEMATOLOGY METHOD 11/13/2024 6:51 AM EDT [facility] nRBC 0.0 <=0.0 per 100 WBCs LAB HEMATOLOGY METHOD 11/13/2024 6:51 AM EDT [facility] Blood Venous blood specimen / Unknown Venipuncture / Unknown 11/13/2024 6:37 AM EDT 11/13/2024 6:44 AM EDT us Nathaly Nowak MD LAB BLOOD ORDERABLES Final Resu lt [facility] [address] [place] [address] * (ABNORMAL) Basic Metabolic Panel, Plasma (11/13/2024 6:37 AM EDT) Glucose, Plasma 200(H) 74 - 99 mg/dL 11/13/2024 7:16 AM EDT [facility] BUN, Plasma 10 8 - 23 mg/dL 11/13/2024 7:16 AM EDT [facility] Creatinine, Plasma 0.68(L) 0.70 - 1.20 mg/dL 11/13/2024 7:16 AM EDT [facility] BUN/Creatinine Ratio 15 11/13/2024 7:16 AM EDT [facility] Sodium, Plasma 135(L) 136 - 145 mmol/L 11/13/2024 7:16 AM EDT [facility] Potassium, Plasma 3.9 3.6 - 4.9 mmol/L 11/13/2024 7:16 AM EDT [facility] Chloride, Plasma 107 97 - 107 mmol/L 11/13/2024 7:16 AM EDT [facility] CO2, Plasma 21(L) 22 - 29 mmol/L 11/13/2024 7:16 AM EDT [facility] Anion Gap 7 6 - 16 mmol/L 11/13/2024 7:16 AM EDT [facility] Total Calcium, Plasma 8.1(L) 8.9 - 10.2 mg/dL 11/13/2024 7:16 AM EDT [facility] eGFRcr 103.2 mL/min/1.7 3m*2 11/13/2024 7:16 AM EDT [facility] Comment:Reported eGFRcr in m L/min/1.73m2 is based the CKD-EPI 2020 equation that does not use a race coefficient. Blood Venous blood specimen / Unknown Venipuncture / Unknown 11/13/2024 6:37 AM EDT 11/13/2024 6:44 AM EDT Nathaly Nowak MD LAB BLOOD ORDERABLES Final Resu lt Performing Organization Address City/[facility]/ZIP Co de Phone Number [facility] [address] [place] [address] * (ABNORMAL) POCT glucose meter (11/12/2024 8:27 PM EDT) POCT Glucose 175(H) 74 - 99 mg/dL 11/12/2024 8:29 PM EDT [facility] Comment:Accuracy of [...] Comment 11/12/2024 8:29 PM EDT [facility] [employer] Instructor ID Nelda Gerber 11/13/19 8:29 PM EDT [facility] Device ID [id number] 11/12/2024 8:29 PM EDT [facility] Specimen Type POC Capillary 11/12/2024 8:29 PM EDT [facility] Blood Capillary blood specimen / Unknown 11/12/2024 8:27 PM EDT 11/12/2024 8:29 PM EDT Nathaly Nowak MD LAB POINT OF CARE TE ST DOCKED DEVICE UNSOLICITED RESULTS Final Result Performing Organization Address City/[facility]/ZIP Co de Phone Number [facility] [address] [place] [address] * (ABNORMAL) POCT glucose meter (11/12/2024 5:08 PM EDT) Pathologist [facility] POCT Glucose 157(H) 74 - 99 mg/dL [...] for testing. Comment 11/12/2024 5:10 PM EDT [facility] [employer] Instructor ID Wade Feliciano 5:10 PM EDT [facility] Device ID [id number] 11/12/2024 5:10 PM EDT [facility] Specimen Type POC Capillary 11/12/2024 5:10 PM EDT [facility] Blood Capillary blood specimen / Unknown 11/12/2024 5:08 PM EDT 11/12/2024 5:10 PM EDT us Nathaly Nowak MD LAB POINT OF CARE TE ST DOCKED DEVICE UNSOLICITED RESULTS Final Result Performing Organization Address City/State/[facility] Co de Phone Number [facility] [address] [place] [address] * (ABNORMAL) POCT glucose meter (11/12/2024 12:36 PM EDT) [facility] POCT Glucose 224(H) 74 - 99 mg/dL [...] for testing. Comment 11/12/2024 12:38 PM EDT [facility] Water F[employer] Instructor ID Wade Feliciano 12:38 PM EDT [facility] Device ID [id number] 11/12/2024 12:38 PM EDT [facility] Specimen Type POC Capillary 11/12/2024 12:38 PM EDT [facility] Blood Capillary blood specimen / Unknown 11/12/2024 12:36 PM EDT 11/12/2024 12:38 PM EDT us Nathaly Nowak MD LAB POINT OF CARE TE ST DOCKED DEVICE UNSOLICITED RESULTS Final Result Performing Organization Address City/[facility]/ZIP Co de Phone Number [facility] [address] [place] [address] * Clostridiodes (Clostridium) difficile PCR (11/12/2024 9:50 AM EDT) [facility] C difficile PCR toxin B gene DNA Result Not Detected Not Detected 11/12/2024 11:54 AM EDT [facility] Stool Rectum structure / Unknown Non-blood Collection / Unknown 11/12/2024 9:50 AM EDT 11/12/2024 10:04 AM EDT Narrative [facility] - 11/12/2024 11:54 AM EDT This test is FDA approved for use with liquid stool specimens. This test is used for clinical purposes. It should not be regarded as investigational or for research. This laboratory is certified under the Clinical Laboratory Improvement Amendments of 1988 (CLIA-88) as qualified to perform high complexity clinical laboratory testing. Nathaly Nowak MD LAB MICROBIOLOGY - [facility] ATIYA FRITZ Final Result Performing Organization Address City/[facility]/ZIP Co de Phone Number [facility] [address] [place] [address] * Comprehensive GI Panel by PCR (11/12/2024 9:50 AM EDT) [facility] Campylobacter PCR Result Not Detected Not Detected 11/12/2024 2:47 PM EDT [facility] Plesiomonas shigelloides PCR Result Not Detected Not Detected 11/12/2024 2:47 PM EDT [facility] Salmonella PCR Result Not Detected Not Detected 11/12/2024 2:47 PM EDT [facility] Vibrio species PCR Result Not Detected Not Detected 11/12/2024 2:47 PM EDT [facility] Vibrio cholerae PCR Result Not Detected Not Detected 11/12/2024 2:47 PM EDT [facility] Yersinia enterocolitica PCR Result Not Detected Not Detected 11/12/2024 2:47 PM EDT [facility] Enteroaggregative E. coli (EAEC) PCR Result Not Detected Not Detected 11/12/2024 2:47 PM EDT [facility] Enteropathogenic E. coli (EPEC) PCR Result Not Detected Not Detected 11/12/2024 2:47 PM EDT [facility] Enterotoxigenic E. coli (ETEC) lt/st PCR Result Not Detected Not Detected 11/12/2024 2:47 PM EDT [facility] Shiga-like Toxin-Producing E.coli (STEC) stx1/stx2 PCR Resu Not Detected Not Detected 11/12/2024 2:47 PM EDT [facility] E coli 0157 PCR Result Not Detected Not Detected 11/12/2024 2:47 PM EDT [facility] Shigella/Enteroinvas tam E. coli (EIEC) PCR Result Not Detected Not Detected 11/12/2024 2:47 PM EDT [facility] Cryptosporidium PCR Result Not Detected Not Detected 11/12/2024 2:47 PM EDT [facility] Cyclospora cayetanensis PCR Result Not Detected Not Detected 11/12/2024 2:47 PM EDT [facility] Entamoeba histolytica PCR Result Not Detected Not Detected 11/12/2024 2:47 PM EDT [facility] Giardia duodenalis (aka Giardia lamblia) PCR Result Not Detected Not Detected 11/12/2024 2:47 PM EDT [facility] Adenovirus F 40/41 PCR Result Not Detected Not Detected 11/12/2024 2:47 PM EDT [facility] Astrovirus PCR Result Not Detected Not Detected 11/12/2024 2:47 PM EDT [facility] Norovirus GI/GII PCR Result Not Detected Not Detected 11/12/2024 2:47 PM EDT [facility] Rotavirus A PCR Result Not Detected Not Detected 11/12/2024 2:47 PM EDT [facility] Sapovirus PCR Result Not Detected Not Detected 11/12/2024 2:47 PM EDT [facility] Stool Rectum structure / Unknown Non-blood Collection / Unknown 11/12/2024 9:50 AM EDT 11/12/2024 10:04 AM EDT Narrative [facility] - 11/12/2024 2:47 PM EDT [...] clinically indicated. Nathaly Nowak MD LAB MICROBIOLOGY - [facility]AL [facility] Final Result Performing Organization Address City/[facility]/ZIP Co de Phone Number [facility] [address] [place] [address] * C-reactive protein (11/12/2024 9:48 AM EDT) [facility] CRP, Plasma <3.0 <=8.0 mg/L 11/12/2024 10:28 AM EDT [facility] Blood Venous blood specimen / Unknown Venipuncture / Unknown 11/12/2024 9:48 AM EDT 11/12/2024 9:59 AM EDT Narrative [facility] - 11/12/2024 10:28 AM EDT This CRP test is appropriate for assessment of infection, systemic inflammation and/or tissue injury. To assess cardiovascular disease risk order high sensitivity CRP (CRPH). Nathaly Nowak MD LAB BLOOD ORDERABLES Final Resu lt Performing Organization Address City/[facility]/ZIP Co de Phone Number [facility] [address] [place] [address] * (ABNORMAL) POCT glucose meter (11/12/2024 8:20 AM EDT) [facility] POCT Glucose 138(H) 74 - 99 mg/dL 11/12/2024 8:21 AM EDT [facility] Comment:Accuracy of [...] Comment 11/12/2024 8:21 AM EDT [facility] [employer] Instructor ID Wade Feliciano 8:21 AM EDT [facility] Device ID [id number] 11/12/2024 8:21 AM EDT [facility] Specimen Type POC Capillary 11/12/2024 8:21 AM EDT [facility] Blood Capillary blood specimen / Unknown 11/12/2024 8:20 AM EDT 11/12/2024 8:21 AM EDT us Nathaly Nowak MD LAB POINT OF CARE TE ST DOCKED DEVICE UNSOLICITED RESULTS Final Result Performing Organization Address City/State/[facility] Co de Phone Number [facility] [address] [place] [address] * (ABNORMAL) POCT glucose meter (11/11/2024 8:18 PM EDT) [facility] Signature POCT Glucose 248(H) 74 - 99 mg/dL 11/11/2024 8:20 PM EDT [facility] Comment:Accuracy of a [...] Comment 11/11/2024 8:20 PM EDT [facility] [employer] Instructor ID Nelda Gerber 11/12/19 8:20 PM EDT [facility] Device ID [id number] 11/11/2024 8:20 PM EDT [facility] Specimen Type POC Capillary 11/11/2024 8:20 PM EDT [facility] Blood Capillary blood specimen / Unknown 11/11/2024 8:18 PM EDT 11/11/2024 8:20 PM EDT us Nathaly Nowak MD LAB POINT OF CARE TE ST DOCKED DEVICE UNSOLICITED RESULTS Final Result [facility] [address] [place] [address] * (ABNORMAL) POCT glucose meter (11/11/2024 5:59 PM EDT) Pathologist [facility] POCT Glucose 147(H) 74 - 99 mg/dL [...] for testing. Comment 11/11/2024 6:01 PM EDT [facility] Water F[employer] Instructor ID Wade Feliciano 6:01 PM EDT [facility] Device ID [id number] 11/11/2024 6:01 PM EDT [facility] Specimen Type POC Capillary 11/11/2024 6:01 PM EDT [facility] Blood Capillary blood specimen / Unknown 11/11/2024 5:59 PM EDT 11/11/2024 6:01 PM EDT us Nathaly Nowak MD LAB POINT OF CARE TE ST DOCKED DEVICE UNSOLICITED RESULTS Final Result [facility] [address] [place] [address] * POCT glucose meter (11/11/2024 5:20 PM EDT) [facility] POCT Glucose 84 74 - 99 mg/dL [...] for testing. Comment 11/11/2024 5:22 PM EDT [facility] [employer] Instructor ID Wade Feliciano 5:22 PM EDT [facility] Device ID [id number] 11/11/2024 5:22 PM EDT [facility] Specimen Type POC Capillary 11/11/2024 5:22 PM EDT [facility] Blood Capillary blood specimen / Unknown 11/11/2024 5:20 PM EDT 11/11/2024 5:22 PM EDT Nathaly Nowak MD LAB POINT OF CARE TE ST DOCKED DEVICE UNSOLICITED RESULTS Final Result [facility] [address] [place] [address] * AL NEGATIVE PRESSURE WOUND THERAPY DME >50 SQ [...] POCT glucose meter (11/11/2024 12:08 PM EDT) [facility] POCT Glucose 226(H) 74 - 99 mg/dL [...] Comment 11/11/2024 12:10 PM EDT [facility] [employer] Instructor ID BradenWade 12:10 PM EDT [facility] Device ID [id number] 11/11/2024 12:10 PM EDT [facility] Specimen Type POC Capillary 11/11/2024 12:10 PM EDT [facility] Blood Capillary blood specimen / Unknown 11/11/2024 12:08 PM EDT 11/11/2024 12:10 PM EDT Nathaly Nowak MD LAB POINT OF CARE TE ST DOCKED DEVICE UNSOLICITED RESULTS Final Result Performing Organization Address [facility] de Phone Number [facility] [address] [place] [address] * (ABNORMAL) POCT glucose meter (11/11/2024 9:08 AM EDT) POCT Glucose 162(H) 74 - 99 [...] for testing. Comment 11/11/2024 9:09 AM EDT [facility] [employer] Instructor ID Wade Feliciano 9:09 AM EDT [facility] Device ID [id number] 11/11/2024 9:09 AM EDT [facility] Specimen Type POC Capillary 11/11/2024 9:09 AM EDT [facility] Blood Capillary blood specimen / Unknown 11/11/2024 9:08 AM EDT 11/11/2024 9:09 AM EDT us Nathaly Nowak MD LAB POINT OF CARE TE ST DOCKED DEVICE UNSOLICITED RESULTS Final Result Performing Organization Address City/[facility] Co de Phone Number [facility] [address] [place] [address] * POCT glucose meter (11/11/2024 8:27 AM EDT) [facility] POCT Glucose 87 74 - 99 mg/dL 11/11/2024 8:28 AM EDT [facility] Comment:Accuracy of a [...] for testing. Comment 11/11/2024 8:28 AM EDT [facility] [employer] Instructor ID Wade Feliciano Tobias 8:28 AM EDT [facility] Device ID [id number] 11/11/2024 8:28 AM EDT [facility] Specimen Type POC Capillary 11/11/2024 8:28 AM EDT [facility] Blood Capillary blood specimen / Unknown 11/11/2024 8:27 AM EDT 11/11/2024 8:28 AM EDT us Nathaly Nowak MD LAB POINT OF CARE TE ST DOCKED DEVICE UNSOLICITED RESULTS Final Result [facility] [address] [place] [address] * (ABNORMAL) Basic Metabolic Panel, Plasma (11/11/2024 1:12 AM EDT) [facility] Glucose, Plasma 122(H) 74 - 99 mg/dL 11/11/2024 1:12 AM EDT [facility] BUN, Plasma 10 8 - 23 mg/dL 11/11/2024 1:12 AM EDT [facility] Creatinine, Plasma 0.82 0.70 - 1.20 mg/dL 11/11/2024 1:12 AM EDT [facility] BUN/Creatinine Ratio 12 11/11/2024 1:12 AM EDT [facility] Sodium, Plasma 137 136 - 145 mmol/L 11/11/2024 1:12 AM EDT [facility] Potassium, Plasma 3.9 3.6 - 4.9 mmol/L 11/11/2024 1:12 AM EDT [facility] Chloride, Plasma 110(H) 97 - 107 mmol/L 11/11/2024 1:12 AM EDT [facility] CO2, Plasma 20(L) 22 - 29 mmol/L 11/11/2024 1:12 AM EDT [facility] Anion Gap 7 6 - 16 mmol/L 11/11/2024 1:12 AM EDT [facility] Total Calcium, Plasma 7.6(L) 8.9 - 10.2 mg/dL 11/11/2024 1:12 AM EDT [facility] eGFRcr 97.5 mL/min/1.7 3m*2 11/11/2024 1:12 AM EDT [facility] Comment:Reported eGFRcr in m L/min/1.73m2 is based the CKD-EPI 2020 equation that does not use a race coefficient. Blood Venous blood specimen / Unknown 11/11/2024 12:42 AM EDT us Nathaly Nowak MD LAB BLOOD ORDERABLES Final Resu lt [facility] [address] [place] [address] * (ABNORMAL) CBC W/O Differential (11/11/2024 12:56 AM EDT) WBC Count 11.83(H) 3.70 - 10.30 10*3/uL LAB HEMATOLOGY METHOD 11/11/2024 12:56 AM EDT [facility] RBC Count 2.97(L) 4.60 - 6.10 10*6/uL LAB HEMATOLOGY METHOD 11/11/2024 12:56 AM EDT [facility] HGB 8.9(L) 13.7 - 17.5 g/dL LAB HEMATOLOGY METHOD 11/11/2024 12:56 AM EDT [facility] HCT 27.2(L) 40.0 - 51.0 % LAB HEMATOLOGY METHOD 11/11/2024 12:56 AM EDT [facility] Platelet Count 444(H) 155 - 369 10*3/uL LAB HEMATOLOGY METHOD 11/11/2024 12:56 AM EDT [facility] MCV 92 79 - 98 fL LAB HEMATOLOGY METHOD 11/11/2024 12:56 AM EDT [facility] MCH 30.0 26.0 - 32.0 pg LAB HEMATOLOGY METHOD 11/11/2024 12:56 AM EDT [facility] MCHC 32.7 30.7 - 35.5 g/dL LAB HEMATOLOGY METHOD 11/11/2024 12:56 AM EDT [facility] RDW 13.3 11.5 - 14.5 % LAB HEMATOLOGY METHOD 11/11/2024 12:56 AM EDT [facility] MPV 9.0 8.8 - 12.5 fL LAB HEMATOLOGY METHOD 11/11/2024 12:56 AM EDT [facility] nRBC 0.0 <=0.0 per 100 WBCs LAB HEMATOLOGY METHOD 11/11/2024 12:56 AM EDT [facility] Blood Venous blood specimen / Unknown 11/11/2024 12:42 AM EDT us Nathaly Nowak MD LAB BLOOD ORDERABLES Final Resu lt [facility] [address] [place] [address] * (ABNORMAL) POCT glucose meter (11/10/2024 8:25 PM EDT) POCT Glucose 144(H) 74 - 99 mg/dL 11/10/2024 8:28 PM EDT [facility] Comment:Accuracy of a [...] Comment 11/10/2024 8:28 PM EDT [facility] [employer] Instructor ID Nelda Gerber 11/11/19 8:28 PM EDT [facility] Device ID [id number] 11/10/2024 8:28 PM EDT [facility] Specimen Type POC Capillary 11/10/2024 8:28 PM EDT [facility] Blood Capillary blood specimen / Unknown 11/10/2024 8:25 PM EDT 11/10/2024 8:28 PM EDT Nathaly Nowak MD LAB POINT OF CARE TE ST DOCKED DEVICE UNSOLICITED RESULTS Final Result Performing Organization Address City/[facility] Co de Phone Number [facility] [address] [place] [address] * (ABNORMAL) POCT glucose meter (11/10/2024 4:45 PM EDT) POCT Glucose 155(H) 74 - 99 mg/dL [...] Comment 11/10/2024 4:47 PM EDT [facility] [employer] ID Esperanza Parks 11/10/2024 4:47 PM EDT [facility] Device ID [id number] 11/10/2024 4:47 PM EDT [facility] Specimen Type POC Capillary 11/10/2024 4:47 PM EDT [facility] Blood Capillary blood specimen / Unknown 11/10/2024 4:45 PM EDT 11/10/2024 4:47 PM EDT Nathaly Nowak MD LAB POINT OF CARE TE ST DOCKED DEVICE UNSOLICITED RESULTS Final Result Performing Organization Address City/[facility]/ZIP Co de Phone Number [facility] [address] [place] [address] * (ABNORMAL) POCT glucose meter (11/10/2024 12:13 PM EDT) POCT Glucose 131(H) 74 - 99 mg/dL 11/10/2024 12:14 PM EDT [facility] Comment:Accuracy of [...] Comment 11/10/2024 12:14 PM EDT [facility] [employer] Instructor ID Esperanza Parks 11/10/2024 12:14 PM EDT [facility]ARE LAB Device ID [id number] 11/10/2024 12:14 PM EDT [facility]ALTH[facility]ARE LAB Specimen Type POC Capillary 11/10/2024 12:14 PM EDT [facility] Blood Capillary blood specimen / Unknown 11/10/2024 12:13 PM EDT 11/10/2024 12:14 PM EDT us Nathaly Nowak MD LAB POINT OF CARE TE ST DOCKED DEVICE UNSOLICITED RESULTS Final Result Performing Organization Address [facility] de Phone Number [facility] [address] [place] [address] * Vancomycin, Peak, Plasma Please draw ~2 hours after 0800 dose of vancomycin finishes infusing. Consider obtaining level via peripheral stick. If peripheral stick is not feasible, please ensure that line is flushed well prior to drawing level. Than... (11/10/2024 10:56 AM EDT) Vancomycin, Peak, Plasma 23.8 20.0 - 40.0 ug/mL 11/10/2024 11:25 AM EDT [facility] Blood Venous blood specimen / Unknown Venipuncture / Unknown 11/10/2024 10:56 AM EDT 11/10/2024 11:00 AM EDT Narrative [facility] - 11/10/2024 11:25 AM EDT Therapeutic Peak level: 20-40ug/mL Supra-therapeutic Peak level: >40 ug/mL us Abigail Seay MD LAB BLOOD ORDERABLES Final Res ult Performing Organization Address City/[facility]/ZIP Co de Phone Number [facility] [address] [place] [address] * (ABNORMAL) POCT glucose meter (11/10/2024 8:03 AM EDT) Pathologist [facility] POCT Glucose 174(H) 74 - 99 mg/dL 11/10/2024 8:04 AM EDT [facility]ALTH[facility]ARE LAB Comment:Accuracy of a [...] Comment 11/10/2024 8:04 AM EDT [facility]ARE [facility] Water Fitness Instructor ID Esperanza Parks 11/10/2024 8:04 AM EDT [facility]ALTH[facility]ARE LAB Device ID [id number] 11/10/2024 8:04 AM EDT [facility] Specimen Type POC Capillary 11/10/2024 8:04 AM EDT [facility] Blood Capillary blood specimen / Unknown 11/10/2024 8:03 AM EDT 11/10/2024 8:04 AM EDT Nathaly Nowak MD LAB POINT OF CARE TE ST DOCKED DEVICE UNSOLICITED RESULTS Final Result [facility] [address] [place], [place] [id number] * Vancomycin, Trough, Plasma Please draw ~30 minutes prior to dose due at 0800 on 11/10. Please do NOThold dose awaiting level to return. Consider obtaining level via peripheral stick. If peripheral stick is not feasible, please ensure that line is... (11/10/2024 7:27 AM EDT) [facility] Vancomycin, Trough, Plasma 16.2 10.0 - 20.0 ug/mL 11/10/2024 8:24 AM EDT [facility] Blood Venous blood specimen / Unknown Venipuncture / Unknown 11/10/2024 7:27 AM EDT 11/10/2024 7:51 AM EDT Narrative [facility] - 11/10/2024 8:24 AM EDT Therapeutic Trough level: 10-20ug/mL Supra-therapeutic Trough level: >20 ug/mL us Abigail Seay MD LAB BLOOD ORDERABLES Final Res ult [facility] [address] [place] [address] * (ABNORMAL) CBC and Differential (11/10/2024 12:31 AM EDT) WBC Count 10.80(H) 3.70 - 10.30 10*3/uL LAB HEMATOLOGY METHOD 11/10/2024 12:53 AM EDT [facility] RBC Count 3.06(L) 4.60 - 6.10 10*6/uL LAB HEMATOLOGY METHOD 11/10/2024 12:53 AM EDT [facility] HGB 9.1(L) 13.7 - 17.5 g/dL LAB HEMATOLOGY METHOD 11/10/2024 12:53 AM EDT [facility] HCT 28.0(L) 40.0 - 51.0 % LAB HEMATOLOGY METHOD 11/10/2024 12:53 AM EDT [facility] Platelet Count 501(H) 155 - 369 10*3/uL LAB HEMATOLOGY METHOD 11/10/2024 12:53 AM EDT [facility] MCV 92 79 - 98 fL LAB HEMATOLOGY METHOD 11/10/2024 12:53 AM EDT [facility] MCH 29.7 26.0 - 32.0 pg LAB HEMATOLOGY METHOD 11/10/2024 12:53 AM EDT [facility] MCHC 32.5 30.7 - 35.5 g/dL LAB HEMATOLOGY METHOD 11/10/2024 12:53 AM EDT [facility] RDW 13.2 11.5 - 14.5 % LAB HEMATOLOGY METHOD 11/10/2024 12:53 AM EDT [facility] MPV 8.8 8.8 - 12.5 fL LAB HEMATOLOGY METHOD 11/10/2024 12:53 AM EDT [facility] nRBC 0.0 <=0.0 per 100 WBCs LAB HEMATOLOGY METHOD 11/10/2024 12:53 AM EDT [facility] Differential Type Automated LAB HEMATOLOGY METHOD 11/10/2024 12:53 AM EDT [facility] Neutrophils % 77 % LAB HEMATOLOGY METHOD 11/10/2024 12:53 AM EDT [facility] Lymphocytes % 13 % LAB HEMATOLOGY METHOD 11/10/2024 12:53 AM EDT [facility] Monocytes % 8 % LAB HEMATOLOGY METHOD 11/10/2024 12:53 AM EDT [facility] Eosinophils % 1 % LAB HEMATOLOGY METHOD 11/10/2024 12:53 AM EDT [facility] Basophils % 0 % LAB HEMATOLOGY METHOD 11/10/2024 12:53 AM EDT [facility] Immature Granulocytes % 1 % LAB HEMATOLOGY METHOD 11/10/2024 12:53 AM EDT [facility] Neutrophils Absolute 8.32(H) 1.60 - 6.10 10*3/uL LAB HEMATOLOGY METHOD 11/10/2024 12:53 AM EDT [facility] Lymphocytes Absolute 1.40 1.20 - 3.90 10*3/uL LAB HEMATOLOGY METHOD 11/10/2024 12:53 AM EDT [facility] Monocytes Absolute 0.89 0.30 - 0.90 10*3/uL LAB HEMATOLOGY METHOD 11/10/2024 12:53 AM EDT [facility] Eosinophils Absolute 0.09 0.00 - 0.50 10*3/uL LAB HEMATOLOGY METHOD 11/10/2024 12:53 AM EDT [facility] Basophils Absolute 0.04 0.00 - 0.10 10*3/uL LAB HEMATOLOGY METHOD 11/10/2024 12:53 AM EDT [facility] Immature Granulocytes Absolute 0.06 0.00 - 0.06 10*3/uL LAB HEMATOLOGY METHOD 11/10/2024 12:53 AM EDT [facility] Blood Venous blood specimen / Unknown Venipuncture / Unknown 11/10/2024 12:31 AM EDT 11/10/2024 12:37 AM EDT Narrative [facility] - 11/10/2024 12:53 AM EDT Therapeutic decision making should be based on absolute values, rather than percentages. us Nathaly Nowak MD LAB BLOOD ORDERABLES Final Resu lt [facility] [address] [place] [address] * (ABNORMAL) Comprehensive Metabolic Panel, Plasma (11/10/2024 12:31 AM EDT) [facility] Signature Glucose, Plasma 185(H) 74 - 99 mg/dL 11/10/2024 1:05 AM EDT [facility] BUN, Plasma 9 8 - 23 mg/dL 11/10/2024 1:05 AM EDT [facility] Creatinine, Plasma 0.72 0.70 - 1.20 mg/dL 11/10/2024 1:05 AM EDT [facility] BUN/Creatinine Ratio 13 11/10/2024 1:05 AM EDT [facility] Sodium, Plasma 135(L) 136 - 145 mmol/L 11/10/2024 1:05 AM EDT [facility] Potassium, Plasma 4.0 3.6 - 4.9 mmol/L 11/10/2024 1:05 AM EDT [facility] Chloride, Plasma 106 97 - 107 mmol/L 11/10/2024 1:05 AM EDT [facility] CO2, Plasma 19(L) 22 - 29 mmol/L 11/10/2024 1:05 AM EDT [facility] Anion Gap 10 6 - 16 mmol/L 11/10/2024 1:05 AM EDT [facility] Total Calcium, Plasma 7.8(L) 8.9 - 10.2 mg/dL 11/10/2024 1:05 AM EDT [facility] Total Protein 5.6(L) 6.3 - 7.9 g/dL 11/10/2024 1:05 AM EDT [facility] Albumin, Plasma 3.1(L) 3.5 - 5.2 g/dL 11/10/2024 1:05 AM EDT [facility] AST, Plasma 33 10 - 50 U/L 11/10/2024 1:05 AM EDT [facility] ALT, Plasma 25 10 - 50 U/L 11/10/2024 1:05 AM EDT [facility] Alkaline Phosphatase, Plasma 108 40 - 115 U/L 11/10/2024 1:05 AM EDT [facility] Total Bilirubin, Plasma <0.2(L) 0.2 - 1.1 mg/dL 11/10/2024 1:05 AM EDT [facility] eGFRcr 101.4 mL/min/1.7 3m*2 11/10/2024 1:05 AM EDT [facility] Comment:Reported eGFRcr in m L/min/1.73m2 is based the CKD-EPI 2020 equation that does not use a race coefficient. Blood Venous blood specimen / Unknown Venipuncture / Unknown 11/10/2024 12:31 AM EDT 11/10/2024 12:37 AM EDT us Nathaly Nowak MD LAB BLOOD ORDERABLES Final Resu lt Performing Organization Address City/[facility]/ZIP Co de Phone Number [facility] [address] [place] [address] * (ABNORMAL) POCT glucose meter (11/09/2024 8:04 [...] Comment 11/09/2024 8:06 PM EDT [facility] Water F[employer] Instructor ID Maximiliano Hansen II 11/09/2024 8:06 PM EDT [facility]ARE LAB Device ID [id number] 11/09/2024 8:06 PM EDT [facility] Specimen Type POC Capillary 11/09/2024 8:06 PM EDT [facility] Blood Capillary blood specimen / Unknown 11/09/2024 8:04 PM EDT 11/09/2024 8:06 PM EDT us Nathaly Nowak MD LAB POINT OF CARE TE ST DOCKED DEVICE UNSOLICITED RESULTS Final Result Performing Organization Address City/[facility]/ZIP Co de Phone Number [facility] [address] [place] [address] * (ABNORMAL) POCT glucose meter (11/09/2024 4:36 PM EDT) POCT Glucose 166(H) 74 - 99 mg/dL [...] Comment 11/09/2024 4:38 PM EDT [facility] Water Fitness Instructor ID Kristian Sosa 11/09/2024 4:38 PM EDT [facility]ARE LAB Device ID [id number] 11/09/2024 4:38 PM EDT [facility] Specimen Type POC Capillary 11/09/2024 4:38 PM EDT [facility] Blood Capillary blood specimen / Unknown 11/09/2024 4:36 PM EDT 11/09/2024 4:38 PM EDT Nathaly Nowak MD LAB POINT OF CARE TE ST DOCKED DEVICE UNSOLICITED RESULTS Final Result Performing Organization Address City/State/[facility] Co de Phone Number [facility]ARE [facility] [address] [place] [address] * PICC SINGLE LUMEN (SMARTFORM LINK) (11/09/2024 1:11 PM EDT) Narrative Estefani Barraza RN - 11/09/2024 1:11 PM EDT Estefani Barraza RN 11/09/2024 1:12 PM Insert PICC line Date/Time: 11/09/2024 1:11 PM Performed by: Estefani Barraza RN Authorized by: Nathaly Nowak MD [place] Protocol: Verbal consent obtained?: Yes Written consent [...] selection rationale: Left pacemaker Catheter Lot #: [id number] Catheter marker machine attendant: Lalalama Catheter placed: Single lumen Catheter size: 4 Fr Catheter trimmed length: 42 Catheter threaded length: 42 Vein placed in: SVC Catheter cm indwellin Catheter cm outside: 0 Placement confirmed by: Navneet 3CG technology Pre-procedure: Landmarks identified Ultrasound guidance: [...] material was given to the patient.: Yes us Nathaly Nowak MD IV THERAPY ORDERABLES Final Res ult * (ABNORMAL) POCT glucose meter (11/09/2024 11:50 AM EDT) [facility] POCT Glucose 127(H) 74 - 99 mg/dL 11/09/2024 11:51 AM EDT [facility]ALTH[facility]ARE [facility] Comment:Accuracy of a [...] Comment 11/09/2024 11:51 AM EDT [facility]ALTH[facility]ARE LAB Water Fitness Instructor ID Kristian Sosa 11/09/2024 11:51 AM EDT HEALTH[facility]ARE LAB Device ID [id number] 11/09/2024 11:51 AM EDT [facility]ARE [facility] Specimen Type POC Capillary 11/09/2024 11:51 AM EDT [facility] Blood Capillary blood specimen / Unknown 11/09/2024 11:50 AM EDT 11/09/2024 11:51 AM EDT Nathaly Nowak MD LAB POINT OF CARE TE ST DOCKED DEVICE UNSOLICITED RESULTS Final Result Performing Organization Address City/[facility]/ZIP Co de Phone Number [facility] [address] [place] [address] * (ABNORMAL) POCT glucose meter (11/09/2024 8:14 AM EDT) Pathologist [facility] POCT Glucose 153(H) 74 - 99 [...] Comment 11/09/2024 8:15 AM EDT [facility]ARE [facility] Water Fitness Instructor ID Kristian Sosa 11/09/2024 8:15 AM EDT HEALTH[facility]ARE LAB Device ID [id number] 11/09/2024 8:15 AM EDT [facility]ARE [facility] Specimen Type POC Capillary 11/09/2024 8:15 AM EDT [facility] Blood Capillary blood specimen / Unknown 11/09/2024 8:14 AM EDT 11/09/2024 8:15 AM EDT Nathaly Nowka MD LAB POINT OF CARE TE ST DOCKED DEVICE UNSOLICITED RESULTS Final Result Performing Organization Address City/[facility]/ZIP Co de Phone Number [facility] [address] [place] [address] * (ABNORMAL) CBC and Differential (11/09/2024 4:15 AM EDT) WBC Count 10.27 3.70 - 10.30 10*3/uL LAB HEMATOLOGY METHOD 11/09/2024 4:26 AM EDT [facility] RBC Count 3.14(L) 4.60 - 6.10 10*6/uL LAB HEMATOLOGY METHOD 11/09/2024 4:26 AM EDT [facility] HGB 9.2(L) 13.7 - 17.5 g/dL LAB HEMATOLOGY METHOD 11/09/2024 4:26 AM EDT [facility] HCT 28.3(L) 40.0 - 51.0 % LAB HEMATOLOGY METHOD 11/09/2024 4:26 AM EDT [facility] Platelet Count 468(H) 155 - 369 10*3/uL LAB HEMATOLOGY METHOD 11/09/2024 4:26 AM EDT [facility] MCV 90 79 - 98 fL LAB HEMATOLOGY METHOD 11/09/2024 4:26 AM EDT [facility] MCH 29.3 26.0 - 32.0 pg LAB HEMATOLOGY METHOD 11/09/2024 4:26 AM EDT [facility] MCHC 32.5 30.7 - 35.5 g/dL LAB HEMATOLOGY METHOD 11/09/2024 4:26 AM EDT [facility] RDW 13.1 11.5 - 14.5 % LAB HEMATOLOGY METHOD 11/09/2024 4:26 AM EDT [facility] MPV 8.7(L) 8.8 - 12.5 fL LAB HEMATOLOGY METHOD 11/09/2024 4:26 AM EDT [facility] nRBC 0.0 <=0.0 per 100 WBCs LAB HEMATOLOGY METHOD 11/09/2024 4:26 AM EDT [facility] Differential Type Automated LAB HEMATOLOGY METHOD 11/09/2024 4:26 AM EDT [facility] Neutrophils % 77 % LAB HEMATOLOGY METHOD 11/09/2024 4:26 AM EDT [facility] Lymphocytes % 13 % LAB HEMATOLOGY METHOD 11/09/2024 4:26 AM EDT [facility] Monocytes % 8 % LAB HEMATOLOGY METHOD 11/09/2024 4:26 AM EDT [facility] Eosinophils % 1 % LAB HEMATOLOGY METHOD 11/09/2024 4:26 AM EDT [facility] Basophils % 0 % LAB HEMATOLOGY METHOD 11/09/2024 4:26 AM EDT [facility] Immature Granulocytes % 1 % LAB HEMATOLOGY METHOD 11/09/2024 4:26 AM EDT [facility] Neutrophils Absolute 7.97(H) 1.60 - 6.10 10*3/uL LAB HEMATOLOGY METHOD 11/09/2024 4:26 AM EDT [facility] Lymphocytes Absolute 1.32 1.20 - 3.90 10*3/uL LAB HEMATOLOGY METHOD 11/09/2024 4:26 AM EDT [facility] Monocytes Absolute 0.83 0.30 - 0.90 10*3/uL LAB HEMATOLOGY METHOD 11/09/2024 4:26 AM EDT [facility] Eosinophils Absolute 0.07 0.00 - 0.50 10*3/uL LAB HEMATOLOGY METHOD 11/09/2024 4:26 AM EDT [facility] Basophils Absolute 0.03 0.00 - 0.10 10*3/uL LAB HEMATOLOGY METHOD 11/09/2024 4:26 AM EDT [facility] Immature Granulocytes Absolute 0.05 0.00 - 0.06 10*3/uL LAB HEMATOLOGY METHOD 11/09/2024 4:26 AM EDT [facility] Blood Venous blood specimen / Unknown Venipuncture / Unknown 11/09/2024 4:15 AM EDT 11/09/2024 4:18 AM EDT Narrative [facility] - 11/09/2024 4:26 AM EDT Therapeutic decision making should be based on absolute values, rather than percentages. us Nathaly Nowak MD LAB BLOOD ORDERABLES Final Resu lt [facility] [address] [place] [address] * (ABNORMAL) Comprehensive Metabolic Panel, Plasma (11/09/2024 4:15 AM EDT) Glucose, Plasma 171(H) 74 - 99 mg/dL 11/09/2024 4:47 AM EDT [facility] BUN, Plasma 9 8 - 23 mg/dL 11/09/2024 4:47 AM EDT [facility] Creatinine, Plasma 0.67(L) 0.70 - 1.20 mg/dL 11/09/2024 4:47 AM EDT [facility] BUN/Creatinine Ratio 13 11/09/2024 4:47 AM EDT [facility] Sodium, Plasma 134(L) 136 - 145 mmol/L 11/09/2024 4:47 AM EDT [facility] Potassium, Plasma 4.1 3.6 - 4.9 mmol/L 11/09/2024 4:47 AM EDT [facility] Chloride, Plasma 104 97 - 107 mmol/L 11/09/2024 4:47 AM EDT [facility] CO2, Plasma 21(L) 22 - 29 mmol/L 11/09/2024 4:47 AM EDT [facility] Anion Gap 9 6 - 16 mmol/L 11/09/2024 4:47 AM EDT [facility] Total Calcium, Plasma 8.4(L) 8.9 - 10.2 mg/dL 11/09/2024 4:47 AM EDT [facility] Total Protein 5.8(L) 6.3 - 7.9 g/dL 11/09/2024 4:47 AM EDT [facility] Albumin, Plasma 3.2(L) 3.5 - 5.2 g/dL 11/09/2024 4:47 AM EDT [facility] AST, Plasma 18 10 - 50 U/L 11/09/2024 4:47 AM EDT [facility] ALT, Plasma 17 10 - 50 U/L 11/09/2024 4:47 AM EDT [facility] Alkaline Phosphatase, Plasma 110 40 - 115 U/L 11/09/2024 4:47 AM EDT [facility] Total Bilirubin, Plasma <0.2(L) 0.2 - 1.1 mg/dL 11/09/2024 4:47 AM EDT [facility] eGFRcr 103.6 mL/min/1.7 3m*2 11/09/2024 4:47 AM EDT [facility] Comment:Reported eGFRcr in m L/min/1.73m2 is based the CKD-EPI 2020 equation that does not use a race coefficient. Blood Venous blood specimen / Unknown Venipuncture / Unknown 11/09/2024 4:15 AM EDT 11/09/2024 4:18 AM EDT us Nathaly Nowak MD LAB BLOOD ORDERABLES Final Resu lt [facility] [address] [place] [address] * (ABNORMAL) POCT glucose meter (11/09/2024 3:30 AM EDT) [facility] POCT Glucose 160(H) 74 - 99 mg/dL [...] Comment 11/09/2024 3:31 AM EDT HEALTHCARE LAB Water Fitness Instructor ID Maximiliano Hansen II 11/09/2024 3:31 AM EDT [facility] Device ID [id number] 11/09/2024 3:31 AM EDT HEALTHCARE LAB Specimen Type POC Capillary 11/09/2024 3:31 AM EDT [facility] Blood Capillary blood specimen / Unknown 11/09/2024 3:30 AM EDT 11/09/2024 3:31 AM EDT Nathaly Nowak MD LAB POINT OF CARE TE ST DOCKED DEVICE UNSOLICITED RESULTS Final Result [facility] [address] [place] [address] * (ABNORMAL) POCT glucose meter (11/08/2024 7:21 PM EDT) [facility] POCT Glucose 292(H) 74 - 99 mg/dL [...] for testing. Comment 11/08/2024 7:22 PM EDT [facility] Water Fitness Instructor ID Maximiliano Hansen II 11/08/2024 7:22 PM EDT [facility] Device ID [id number] 11/08/2024 7:22 PM EDT [facility] Specimen Type POC Capillary 11/08/2024 7:22 PM EDT [facility] Blood Capillary blood specimen / Unknown 11/08/2024 7:21 PM EDT 11/08/2024 7:22 PM EDT Nathaly Nowak MD LAB POINT OF CARE TE ST DOCKED DEVICE UNSOLICITED RESULTS Final Result Performing Organization Address City/[facility]/ZIP Co de Phone Number [facility] [address] [place] [address] * (ABNORMAL) POCT glucose meter (11/08/2024 5:12 PM EDT) POCT Glucose 178(H) 74 - 99 mg/dL 11/08/2024 5:14 PM EDT [facility] Comment:Accuracy of [...] Comment 11/08/2024 5:14 PM EDT [facility]ALTH[facility]ARE [facility] Water Fitness Instructor ID Estefani Sheth 11/08/2024 5:14 PM EDT [facility]ALTH[facility]ARE LAB Device ID [id number] 11/08/2024 5:14 PM EDT [facility]ARE [facility] Specimen Type POC Capillary 11/08/2024 5:14 PM EDT [facility] Blood Capillary blood specimen / Unknown 11/08/2024 5:12 PM EDT 11/08/2024 5:14 PM EDT Nathaly Nowak MD LAB POINT OF CARE TE ST DOCKED DEVICE UNSOLICITED RESULTS Final Result Performing Organization Address City/[facility]/ZIP Co de Phone Number [facility] [address] [place] [address] * (ABNORMAL) POCT glucose meter (11/08/2024 12:03 PM EDT) POCT Glucose 191(H) 74 - 99 mg/dL 11/08/2024 12:05 PM EDT [facility] Comment:Accuracy of [...] for testing. Comment 11/08/2024 12:05 PM EDT [facility]ARE [facility] Water Fitness Instructor ID Estefani Sheth 11/08/2024 12:05 PM EDT HEALTHCARE LAB Device ID [id number] 11/08/2024 12:05 PM EDT [facility]ALTH[facility]ARE LAB Specimen Type POC Capillary 11/08/2024 12:05 PM EDT [facility] Blood Capillary blood specimen / Unknown 11/08/2024 12:03 PM EDT 11/08/2024 12:05 PM EDT Nathaly Nowak MD LAB POINT OF CARE TE ST DOCKED DEVICE UNSOLICITED RESULTS Final Result Performing Organization Address [facility] de Phone Number [facility] [address] [place] [address] * Vancomycin, Peak, Plasma Please draw ~2 hours after 11/08 0600 dose of vancomycin finishes infusing.Consider obtaining level via peripheral stick. If peripheral stick is not feasible, please ensure that line is flushed well prior to drawing level.... (11/08/2024 9:24 AM EDT) Vancomycin, Peak, Plasma 29.1 20.0 - 40.0 ug/mL 11/08/2024 10:31 AM EDT [facility] Blood Venous blood specimen / Unknown Venipuncture / Unknown 11/08/2024 9:24 AM EDT 11/08/2024 9:47 AM EDT Narrative [facility] - 11/08/2024 10:31 AM EDT Therapeutic Peak level: 20-40ug/mL Supra-therapeutic Peak level: >40 ug/mL Nathaly Nowak MD LAB BLOOD ORDERABLES Final Resu lt Performing Organization Address [facility] Co de Phone Number [facility] [address] [place] [address] * (ABNORMAL) POCT glucose meter (11/08/2024 8:00 AM EDT) [facility] POCT Glucose 150(H) 74 - 99 mg/dL [...] Comment 11/08/2024 8:01 AM EDT [facility]ALTHCARE LAB Water Fitness Instructor ID Estefani Sheth 11/08/2024 8:01 AM EDT [facility]ALTH[facility]ARE LAB Device ID [id number] 11/08/2024 8:01 AM EDT [facility]ALTH[facility]ARE [facility] Specimen Type POC Capillary 11/08/2024 8:01 AM EDT [facility] Blood Capillary blood specimen / Unknown 11/08/2024 8:00 AM EDT 11/08/2024 8:01 AM EDT us Nathaly Nowak MD LAB POINT OF CARE TE ST DOCKED DEVICE UNSOLICITED RESULTS Final Result [facility] [address] [place] [address] * (ABNORMAL) CBC and Differential (11/08/2024 4:39 AM EDT) [facility] WBC Count 9.18 3.70 - 10.30 10*3/uL LAB HEMATOLOGY METHOD 11/08/2024 4:58 AM EDT [facility] RBC Count 3.11(L) 4.60 - 6.10 10*6/uL LAB HEMATOLOGY METHOD 11/08/2024 4:58 AM EDT [facility] HGB 9.2(L) 13.7 - 17.5 g/dL LAB HEMATOLOGY METHOD 11/08/2024 4:58 AM EDT [facility] HCT 28.9(L) 40.0 - 51.0 % LAB HEMATOLOGY METHOD 11/08/2024 4:58 AM EDT [facility] Platelet Count 485(H) 155 - 369 10*3/uL LAB HEMATOLOGY METHOD 11/08/2024 4:58 AM EDT [facility] MCV 93 79 - 98 fL LAB HEMATOLOGY METHOD 11/08/2024 4:58 AM EDT [facility] MCH 29.6 26.0 - 32.0 pg LAB HEMATOLOGY METHOD 11/08/2024 4:58 AM EDT [facility] MCHC 31.8 30.7 - 35.5 g/dL LAB HEMATOLOGY METHOD 11/08/2024 4:58 AM EDT [facility] RDW 13.0 11.5 - 14.5 % LAB HEMATOLOGY METHOD 11/08/2024 4:58 AM EDT [facility] MPV 8.8 8.8 - 12.5 fL LAB HEMATOLOGY METHOD 11/08/2024 4:58 AM EDT [facility] nRBC 0.0 <=0.0 per 100 WBCs LAB HEMATOLOGY METHOD 11/08/2024 4:58 AM EDT [facility] Differential Type Automated LAB HEMATOLOGY METHOD 11/08/2024 4:58 AM EDT [facility] Neutrophils % 69 % LAB HEMATOLOGY METHOD 11/08/2024 4:58 AM EDT [facility] Lymphocytes % 17 % LAB HEMATOLOGY METHOD 11/08/2024 4:58 AM EDT [facility] Monocytes % 10 % LAB HEMATOLOGY METHOD 11/08/2024 4:58 AM EDT [facility] Eosinophils % 2 % LAB HEMATOLOGY METHOD 11/08/2024 4:58 AM EDT [facility] Basophils % 1 % LAB HEMATOLOGY METHOD 11/08/2024 4:58 AM EDT [facility] Immature Granulocytes % 1 % LAB HEMATOLOGY METHOD 11/08/2024 4:58 AM EDT [facility] Neutrophils Absolute 6.40(H) 1.60 - 6.10 10*3/uL LAB HEMATOLOGY METHOD 11/08/2024 4:58 AM EDT [facility] Lymphocytes Absolute 1.59 1.20 - 3.90 10*3/uL LAB HEMATOLOGY METHOD 11/08/2024 4:58 AM EDT [facility] Monocytes Absolute 0.87 0.30 - 0.90 10*3/uL LAB HEMATOLOGY METHOD 11/08/2024 4:58 AM EDT [facility] Eosinophils Absolute 0.22 0.00 - 0.50 10*3/uL LAB HEMATOLOGY METHOD 11/08/2024 4:58 AM EDT [facility] Basophils Absolute 0.05 0.00 - 0.10 10*3/uL LAB HEMATOLOGY METHOD 11/08/2024 4:58 AM EDT [facility] Immature Granulocytes Absolute 0.05 0.00 - 0.06 10*3/uL LAB HEMATOLOGY METHOD 11/08/2024 4:58 AM EDT [facility] Blood Venous blood specimen / Unknown Venipuncture / Unknown 11/08/2024 4:39 AM EDT 11/08/2024 4:49 AM EDT Narrative [facility] - 11/08/2024 4:58 AM EDT Therapeutic decision making should be based on absolute values, rather than percentages. us Nathaly Nowak MD LAB BLOOD ORDERABLES Final Resu lt [facility] [address] [place] [address] * (ABNORMAL) Comprehensive Metabolic Panel, Plasma (11/08/2024 4:39 AM EDT) Glucose, Plasma 255(H) 74 - 99 mg/dL 11/08/2024 5:20 AM EDT [facility] BUN, Plasma 10 8 - 23 mg/dL 11/08/2024 5:20 AM EDT [facility] Creatinine, Plasma 0.75 0.70 - 1.20 mg/dL 11/08/2024 5:20 AM EDT [facility] BUN/Creatinine Ratio 13 11/08/2024 5:20 AM EDT [facility] Sodium, Plasma 133(L) 136 - 145 mmol/L 11/08/2024 5:20 AM EDT [facility] Potassium, Plasma 5.2(H) 3.6 - 4.9 mmol/L 11/08/2024 5:20 AM EDT [facility] Chloride, Plasma 105 97 - 107 mmol/L 11/08/2024 5:20 AM EDT [facility] CO2, Plasma 20(L) 22 - 29 mmol/L 11/08/2024 5:20 AM EDT [facility] Anion Gap 8 6 - 16 mmol/L 11/08/2024 5:20 AM EDT [facility] Total Calcium, Plasma 7.7(L) 8.9 - 10.2 mg/dL 11/08/2024 5:20 AM EDT [facility] Total Protein 5.6(L) 6.3 - 7.9 g/dL 11/08/2024 5:20 AM EDT [facility] Albumin, Plasma 2.8(L) 3.5 - 5.2 g/dL 11/08/2024 5:20 AM EDT [facility] AST, Plasma 20 10 - 50 U/L 11/08/2024 5:20 AM EDT [facility] Comment:Hemolyzed, result ma y be falsely increased. ALT, Plasma 14 10 - 50 U/L 11/08/2024 5:20 AM EDT [facility] Alkaline Phosphatase, Plasma 119(H) 40 - 115 U/L 11/08/2024 5:20 AM EDT [facility] Total Bilirubin, Plasma <0.2(L) 0.2 - 1.1 mg/dL 11/08/2024 5:20 AM EDT [facility] eGFRcr 100.1 mL/min/1.7 3m*2 11/08/2024 5:20 AM EDT [facility] Comment:Reported eGFRcr in m L/min/1.73m2 is based the CKD-EPI 2020 equation that does not use a race coefficient. Blood Venous blood specimen / Unknown Venipuncture / Unknown 11/08/2024 4:39 AM EDT 11/08/2024 4:43 AM EDT us Nathaly Nowak MD LAB BLOOD ORDERABLES Final Resu lt [facility] [address] [place] [address] * Vancomycin, Trough, Plasma Please draw ~30 minutes prior to dose due at 0600 on 11/08. Please do NOThold dose awaiting level to return. Consider obtaining level via peripheral stick. If peripheral stick is not feasible, please ensure that line is... (11/08/2024 4:39 AM EDT) [facility] Vancomycin, Trough, Plasma 18.7 10.0 - 20.0 ug/mL 11/08/2024 5:22 AM EDT [facility] Blood Venous blood specimen / Unknown Venipuncture / Unknown 11/08/2024 4:39 AM EDT 11/08/2024 4:43 AM EDT Narrative [facility] - 11/08/2024 5:22 AM EDT Therapeutic Trough level: 10-20ug/mL Supra-therapeutic Trough level: >20 ug/mL us Nathaly Nowak MD LAB BLOOD ORDERABLES Final Resu lt [facility] [address] [place] [address] * (ABNORMAL) POCT glucose meter (11/07/2024 7:26 PM EDT) [facility] POCT Glucose 172(H) 74 - 99 mg/dL 11/07/2024 7:28 PM EDT [facility] Comment:Accuracy of [...] 11/07/2024 7:28 PM EDT [facility] [employer] Instructor ID Maximiliano Hansen II 11/07/2024 7:28 PM EDT [facility] Device ID [id number] 11/07/2024 7:28 PM EDT [facility] Specimen Type POC Capillary 11/07/2024 7:28 PM EDT [facility] Blood Capillary blood specimen / Unknown 11/07/2024 7:26 PM EDT 11/07/2024 7:28 PM EDT us Nathaly Nowak MD LAB POINT OF CARE TE ST DOCKED DEVICE UNSOLICITED RESULTS Final Result Performing Organization Address City/[facility] Co de Phone Number [facility]ALTH[facility]ARE [facility] [address] [place] [address] * (ABNORMAL) POCT glucose meter (11/07/2024 5:51 PM EDT) [facility] POCT Glucose 183(H) 74 - 99 mg/dL [...] Comment 11/07/2024 5:52 PM EDT [facility] Water F[employer] Instructor ID Ravinder Brigitte 11/07/2024 5:52 PM EDT [facility] Device ID [id number] 11/07/2024 5:52 PM EDT [facility] Specimen Type POC Capillary 11/07/2024 5:52 PM EDT [facility] Blood Capillary blood specimen / Unknown 11/07/2024 5:51 PM EDT 11/07/2024 5:52 PM EDT Nathaly Nowak MD LAB POINT OF CARE TE ST DOCKED DEVICE UNSOLICITED RESULTS Final Result Performing Organization Address [facility] Co de Phone Number [facility] [address] [place] [address] * (ABNORMAL) POCT glucose meter (11/07/2024 4:47 PM EDT) [facility] POCT Glucose 162(H) 74 - 99 mg/dL [...] 11/07/2024 4:48 PM EDT [facility] Water Fitness Instructor ID Estefani Sheth 11/07/2024 4:48 PM EDT [facility]ARE LAB Device ID [id number] 11/07/2024 4:48 PM EDT [facility] Specimen Type POC Capillary 11/07/2024 4:48 PM EDT [facility] Blood Capillary blood specimen / Unknown 11/07/2024 4:47 PM EDT 11/07/2024 4:48 PM EDT Nathaly Nowak MD LAB POINT OF CARE TE ST DOCKED DEVICE UNSOLICITED RESULTS Final Result Performing Organization Address City/[facility]/ZIP Co de Phone Number [facility] [address] [place] [address] * (ABNORMAL) POCT glucose meter (11/07/2024 12:22 PM EDT) [facility] POCT Glucose 172(H) 74 - 99 mg/dL [...] for testing. Comment 11/07/2024 12:24 PM EDT [facility] Water F[employer] Instructor ID Estefani Sheth 11/07/2024 12:24 PM EDT [facility] Device ID [id number] 11/07/2024 12:24 PM EDT [facility] Specimen Type POC Capillary 11/07/2024 12:24 PM EDT [facility] Blood Capillary blood specimen / Unknown 11/07/2024 12:22 PM EDT 11/07/2024 12:24 PM EDT Nathaly Nowak MD LAB POINT OF CARE TE ST DOCKED DEVICE UNSOLICITED RESULTS Final Result Performing Organization Address City/[facility]/ZIP Co de Phone Number [facility] [address] [place] [address] * (ABNORMAL) CBC and Differential (11/07/2024 11:37 AM EDT) [facility] WBC Count 9.96 3.70 - 10.30 10*3/uL LAB HEMATOLOGY METHOD 11/07/2024 12:33 PM EDT [facility] RBC Count 2.81(L) 4.60 - 6.10 10*6/uL LAB HEMATOLOGY METHOD 11/07/2024 12:33 PM EDT [facility] HGB 8.5(L) 13.7 - 17.5 g/dL LAB HEMATOLOGY METHOD 11/07/2024 12:33 PM EDT [facility] HCT 26.0(L) 40.0 - 51.0 % LAB HEMATOLOGY METHOD 11/07/2024 12:33 PM EDT [facility] Platelet Count 524(H) 155 - 369 10*3/uL LAB HEMATOLOGY METHOD 11/07/2024 12:33 PM EDT [facility] MCV 93 79 - 98 fL LAB HEMATOLOGY METHOD 11/07/2024 12:33 PM EDT [facility] MCH 30.2 26.0 - 32.0 pg LAB HEMATOLOGY METHOD 11/07/2024 12:33 PM EDT [facility] MCHC 32.7 30.7 - 35.5 g/dL LAB HEMATOLOGY METHOD 11/07/2024 12:33 PM EDT [facility] RDW 13.1 11.5 - 14.5 % LAB HEMATOLOGY METHOD 11/07/2024 12:33 PM EDT [facility] MPV 9.0 8.8 - 12.5 fL LAB HEMATOLOGY METHOD 11/07/2024 12:33 PM EDT [facility] nRBC 0.0 <=0.0 per 100 WBCs LAB HEMATOLOGY METHOD 11/07/2024 12:33 PM EDT [facility] Differential Type Automated LAB HEMATOLOGY METHOD 11/07/2024 12:33 PM EDT [facility] Neutrophils % 72 % LAB HEMATOLOGY METHOD 11/07/2024 12:33 PM EDT [facility] Lymphocytes % 17 % LAB HEMATOLOGY METHOD 11/07/2024 12:33 PM EDT [facility] Monocytes % 9 % LAB HEMATOLOGY METHOD 11/07/2024 12:33 PM EDT [facility] Eosinophils % 1 % LAB HEMATOLOGY METHOD 11/07/2024 12:33 PM EDT [facility] Basophils % 1 % LAB HEMATOLOGY METHOD 11/07/2024 12:33 PM EDT [facility] Immature Granulocytes % 0 % LAB HEMATOLOGY METHOD 11/07/2024 12:33 PM EDT [facility] Neutrophils Absolute 7.19(H) 1.60 - 6.10 10*3/uL LAB HEMATOLOGY METHOD 11/07/2024 12:33 PM EDT [facility] Lymphocytes Absolute 1.66 1.20 - 3.90 10*3/uL LAB HEMATOLOGY METHOD 11/07/2024 12:33 PM EDT [facility] Monocytes Absolute 0.88 0.30 - 0.90 10*3/uL LAB HEMATOLOGY METHOD 11/07/2024 12:33 PM EDT [facility] Eosinophils Absolute 0.14 0.00 - 0.50 10*3/uL LAB HEMATOLOGY METHOD 11/07/2024 12:33 PM EDT [facility] Basophils Absolute 0.05 0.00 - 0.10 10*3/uL LAB HEMATOLOGY METHOD 11/07/2024 12:33 PM EDT [facility] Immature Granulocytes Absolute 0.04 0.00 - 0.06 10*3/uL LAB HEMATOLOGY METHOD 11/07/2024 12:33 PM EDT [facility] Blood Venous blood specimen / Unknown Venipuncture / Unknown 11/07/2024 11:37 AM EDT 11/07/2024 12:24 PM EDT Narrative [facility] - 11/07/2024 12:33 PM EDT Therapeutic decision making should be based on absolute values, rather than percentages. us Nathaly Nowak MD LAB BLOOD ORDERABLES Final Resu lt [facility] [address] [place] [address] * (ABNORMAL) Comprehensive Metabolic Panel, Plasma (11/07/2024 11:37 AM EDT) Glucose, Plasma 173(H) 74 - 99 mg/dL 11/07/2024 1:31 PM EDT [facility] BUN, Plasma 13 8 - 23 mg/dL 11/07/2024 1:31 PM EDT [facility] Creatinine, Plasma 0.92 0.70 - 1.20 mg/dL 11/07/2024 1:31 PM EDT [facility] BUN/Creatinine Ratio 14 11/07/2024 1:31 PM EDT [facility] Sodium, Plasma 136 136 - 145 mmol/L 11/07/2024 1:31 PM EDT [facility] Potassium, Plasma 4.0 3.6 - 4.9 mmol/L 11/07/2024 1:31 PM EDT [facility] Chloride, Plasma 104 97 - 107 mmol/L 11/07/2024 1:31 PM EDT [facility] CO2, Plasma 23 22 - 29 mmol/L 11/07/2024 1:31 PM EDT [facility] Anion Gap 9 6 - 16 mmol/L 11/07/2024 1:31 PM EDT [facility] Total Calcium, Plasma 7.8(L) 8.9 - 10.2 mg/dL 11/07/2024 1:31 PM EDT [facility] Total Protein 5.7(L) 6.3 - 7.9 g/dL 11/07/2024 1:31 PM EDT [facility] Albumin, Plasma 3.0(L) 3.5 - 5.2 g/dL 11/07/2024 1:31 PM EDT [facility] AST, Plasma 15 10 - 50 U/L 11/07/2024 1:31 PM EDT [facility] ALT, Plasma 16 10 - 50 U/L 11/07/2024 1:31 PM EDT [facility] Alkaline Phosphatase, Plasma 119(H) 40 - 115 U/L 11/07/2024 1:31 PM EDT [facility] Total Bilirubin, Plasma <0.2(L) 0.2 - 1.1 mg/dL 11/07/2024 1:31 PM EDT [facility] eGFRcr 92.3 mL/min/1.7 3m*2 11/07/2024 1:31 PM EDT [facility] Comment:Reported eGFRcr in m L/min/1.73m2 is based the CKD-EPI 2020 equation that does not use a race coefficient. Blood Venous blood specimen / Unknown Venipuncture / Unknown 11/07/2024 11:37 AM EDT 11/07/2024 12:23 PM EDT Nathaly Nowak MD LAB BLOOD ORDERABLES Final Resu lt Performing Organization Address City/[facility]/ZIP Co de Phone Number [facility] [address] [place] [address] * Type and Screen (11/07/2024 11:37 AM EDT) Pathologist [facility] ABO/Rh A Negative 11/06/2024 8:56 AM EDT BLOOD BANK Antibody Screen Negative 11/06/2024 8:56 AM EDT BLOOD BANK Specimen Expiration 11/10/2024 23:59 11/06/2024 8:56 AM EDT BLOOD BANK Blood Venous blood specimen / Unknown Venipuncture / Unknown 11/07/2024 11:37 AM EDT 11/07/2024 11:50 AM EDT Sabrina DOS[facility] LAB BLOOD BANK TEST ORDERABLES F inal Result Performing Organization Address [facility] de Phone Number BLOOD BANK [address] * (ABNORMAL) POCT glucose meter (11/07/2024 10:34 AM EDT) [facility] POCT Glucose 199(H) 74 - 99 mg/dL 11/07/2024 10:36 AM EDT [facility] Comment:Accuracy of [...] Comment 11/07/2024 10:36 AM EDT [facility] Water Fitness Instructor ID Joy Iraheta 11/07/2024 10:36 AM EDT HEALTH[facility]ARE LAB Device ID [id number] 11/07/2024 10:36 AM EDT [facility] Specimen Type POC Capillary 11/07/2024 10:36 AM EDT [facility] Blood Capillary blood specimen / Unknown 11/07/2024 10:34 AM EDT 11/07/2024 10:36 AM EDT Nathaly Nowak MD LAB POINT OF CARE TE ST DOCKED DEVICE UNSOLICITED RESULTS Final Result Performing Organization Address [facility] Co de Phone Number [facility] [address] [place] [address] * (ABNORMAL) POCT glucose meter (11/07/2024 9:34 AM EDT) Pathologist [facility] POCT Glucose 208(H) 74 - 99 mg/dL [...] Comment 11/07/2024 9:36 AM EDT [facility] Water Fitness Instructor ID Brigitte Castellon 11/07/2024 9:36 AM EDT HEALTHCARE LAB Device ID [id number] 11/07/2024 9:36 AM EDT [facility] Specimen Type POC Capillary 11/07/2024 9:36 AM EDT [facility] Blood Capillary blood specimen / Unknown 11/07/2024 9:34 AM EDT 11/07/2024 9:36 AM EDT Nathaly Nowak MD LAB POINT OF CARE TE ST DOCKED DEVICE UNSOLICITED RESULTS Final Result Performing Organization Address City/[facility] Co de Phone Number [facility] [address] [place] [address] * (ABNORMAL) POCT glucose meter (11/07/2024 8:20 AM EDT) Pathologist [facility] POCT Glucose 137(H) 74 - 99 mg/dL [...] for testing. Comment 11/07/2024 8:22 AM EDT [facility]ARE [facility] Water Fitness Instructor ID Estefani Sheth 11/07/2024 8:22 AM EDT HEALTHCARE LAB Device ID [id number] 11/07/2024 8:22 AM EDT [facility]ARE [facility] Specimen Type POC Capillary 11/07/2024 8:22 AM EDT [facility] Blood Capillary blood specimen / Unknown 11/07/2024 8:20 AM EDT 11/07/2024 8:22 AM EDT Nathaly Nowak MD LAB POINT OF CARE TE ST DOCKED DEVICE UNSOLICITED RESULTS Final Result Performing Organization Address City/State/[facility] Co de Phone Number [facility] [address] [place] [address] * (ABNORMAL) POCT glucose meter (11/07/2024 7:21 AM EDT) [facility] POCT Glucose 151(H) 74 - 99 mg/dL [...] for testing. Comment 11/07/2024 7:22 AM EDT [facility]ARE [facility] Water Fitness Instructor ID Brigitte Castellon 11/07/2024 7:22 AM EDT HEALTH[facility]ARE LAB Device ID [id number] 11/07/2024 7:22 AM EDT [facility] Specimen Type POC Capillary 11/07/2024 7:22 AM EDT [facility] Blood Capillary blood specimen / Unknown 11/07/2024 7:21 AM EDT 11/07/2024 7:22 AM EDT Nathaly Nowak MD LAB POINT OF CARE TE ST DOCKED DEVICE UNSOLICITED RESULTS Final Result Performing Organization Address City/[facility]/ZIP Co de Phone Number [facility] [address] [place] [address] * (ABNORMAL) POCT glucose meter (11/07/2024 6:25 AM EDT) [facility] POCT Glucose 144(H) 74 - 99 mg/dL 11/07/2024 6:27 AM EDT [facility] Comment:Accuracy of [...] Comment 11/07/2024 6:27 AM EDT [facility]ALTH[facility]ARE [facility] Water Fitness Instructor ID Nelda Gerber Chris 11/08/19 6:27 AM EDT HEALTHCARE LAB Device ID [id number] 11/07/2024 6:27 AM EDT [facility]ARE [facility] Specimen Type POC Capillary 11/07/2024 6:27 AM EDT [facility] Blood Capillary blood specimen / Unknown 11/07/2024 6:25 AM EDT 11/07/2024 6:27 AM EDT Nathaly Nowak MD LAB POINT OF CARE TE ST DOCKED DEVICE UNSOLICITED RESULTS Final Result Performing Organization Address City/[facility] Co de Phone Number [facility] [address] [place] [address] * (ABNORMAL) POCT glucose meter (11/07/2024 5:03 AM EDT) [facility] POCT Glucose 139(H) 74 - 99 mg/dL 11/07/2024 5:08 AM EDT [facility] Comment:Accuracy of [...] for testing. Comment 11/07/2024 5:08 AM EDT [facility] Water Fitness Instructor ID Nelda Gerber 11/08/19 5:08 AM EDT HEALTHCARE LAB Device ID [id number] 11/07/2024 5:08 AM EDT [facility] Specimen Type POC Capillary 11/07/2024 5:08 AM EDT [facility] Blood Capillary blood specimen / Unknown 11/07/2024 5:03 AM EDT 11/07/2024 5:08 AM EDT Nathaly Nowak MD LAB POINT OF CARE TE ST DOCKED DEVICE UNSOLICITED RESULTS Final Result Performing Organization Address City/[facility] Co de Phone Number [facility] [address] [place] [address] * (ABNORMAL) POCT glucose meter (11/07/2024 4:16 AM EDT) Pathologist [facility] POCT Glucose 142(H) 74 - 99 mg/dL 11/07/2024 4:18 AM EDT [facility] Comment:Accuracy of [...] 11/07/2024 4:18 AM EDT [facility] Water Fitness Instructor ID Nelda Gerber 11/08/19 4:18 AM EDT HEALTHCARE LAB Device ID [id number] 11/07/2024 4:18 AM EDT [facility] Specimen Type POC Capillary 11/07/2024 4:18 AM EDT [facility] Blood Capillary blood specimen / Unknown 11/07/2024 4:16 AM EDT 11/07/2024 4:18 AM EDT Nathaly Nowak MD LAB POINT OF CARE TE ST DOCKED DEVICE UNSOLICITED RESULTS Final Result Performing Organization Address City/[facility] Co de Phone Number [facility] [address] [place] [address] * (ABNORMAL) POCT glucose meter (11/07/2024 3:21 AM EDT) POCT Glucose 141(H) 74 - 99 mg/dL 11/07/2024 3:23 AM EDT [facility] Comment:Accuracy of a [...] for testing. Comment 11/07/2024 3:23 AM EDT [facility] Water Fitness Instructor ID Nelda Gerber 11/08/19 3:23 AM EDT HEALTHCARE LAB Device ID [id number] 11/07/2024 3:23 AM EDT [facility] Specimen Type POC Capillary 11/07/2024 3:23 AM EDT [facility] Blood Capillary blood specimen / Unknown 11/07/2024 3:21 AM EDT 11/07/2024 3:23 AM EDT Nathaly Nowak MD LAB POINT OF CARE TE ST DOCKED DEVICE UNSOLICITED RESULTS Final Result [facility] [address] [place] [address] * (ABNORMAL) POCT glucose meter (11/07/2024 2:10 AM EDT) [facility] POCT Glucose 146(H) 74 - 99 mg/dL 11/07/2024 2:12 AM EDT [facility] Comment:Accuracy of a [...] for testing. Comment 11/07/2024 2:12 AM EDT [facility] Water Fitness Instructor ID Nelda Gerber 11/08/19 2:12 AM EDT HEALTHCARE LAB Device ID [id number] 11/07/2024 2:12 AM EDT [facility] Specimen Type POC Capillary 11/07/2024 2:12 AM EDT [facility] Blood Capillary blood specimen / Unknown 11/07/2024 2:10 AM EDT 11/07/2024 2:12 AM EDT Nathaly Nowak MD LAB POINT OF CARE TE ST DOCKED DEVICE UNSOLICITED RESULTS Final Result Performing Organization Address [facility] de Phone Number HEALTHCARE [facility] [address] [place] [address] * (ABNORMAL) POCT glucose meter (11/07/2024 1:08 [...] for testing. Comment 11/07/2024 1:10 AM EDT [facility] Water Fitness Instructor ID Nelda Gerber 11/08/19 1:10 AM EDT [facility] Device ID [id number] 11/07/2024 1:10 AM EDT [facility] Specimen Type POC Capillary 11/07/2024 1:10 AM EDT [facility] Blood Capillary blood specimen / Unknown 11/07/2024 1:08 AM EDT 11/07/2024 1:10 AM EDT Nathaly Nowak MD LAB POINT OF CARE TE ST DOCKED DEVICE UNSOLICITED RESULTS Final Result Performing Organization Address City/[facility] Co de Phone Number [facility] [address] [place] [address] * (ABNORMAL) POCT glucose meter (11/07/2024 12:10 AM EDT) POCT Glucose 127(H) 74 - 99 mg/dL 11/07/2024 12:13 AM EDT [facility] Comment:Accuracy of [...] Comment 11/07/2024 12:13 AM EDT [facility]ALTH[facility]ARE [facility] Water Fitness Instructor ID Nelda Gerber 11/08/19 12:13 AM EDT HEALTHCARE LAB Device ID [id number] 11/07/2024 12:13 AM EDT [facility]ALTH[facility]ARE LAB Specimen Type POC Capillary 11/07/2024 12:13 AM EDT [facility] Blood Capillary blood specimen / Unknown 11/07/2024 12:10 AM EDT 11/07/2024 12:13 AM EDT us Nathaly Nowak MD LAB POINT OF CARE TE ST DOCKED DEVICE UNSOLICITED RESULTS Final Result Performing Organization Address City/[facility] Co de Phone Number [facility] [address] [place] [address] * (ABNORMAL) POCT glucose meter (11/06/2024 11:14 PM EDT) [facility] POCT Glucose 71(L) 74 - 99 mg/dL 11/06/2024 11:16 PM EDT [facility] Comment:Accuracy of a glucos e result [...] for testing. Comment 11/06/2024 11:16 PM EDT [facility] Water Fitness Instructor ID Nelda Gerber 11/07/19 11:16 PM EDT HEALTHCARE LAB Device ID [id number] 11/06/2024 11:16 PM EDT [facility]ALTH[facility]ARE LAB Specimen Type POC Capillary 11/06/2024 11:16 PM EDT [facility] Blood Capillary blood specimen / Unknown 11/06/2024 11:14 PM EDT 11/06/2024 11:16 PM EDT us Nathaly Nowak MD LAB POINT OF CARE TE ST DOCKED DEVICE UNSOLICITED RESULTS Final Result [facility] [address] [place] [address] * (ABNORMAL) POCT glucose meter (11/06/2024 10:07 PM EDT) [facility] POCT Glucose 140(H) 74 - 99 mg/dL [...] for testing. Comment 11/06/2024 10:09 PM EDT [facility] Water Fitness Instructor ID Nelda Gerber 11/07/19 10:09 PM EDT [facility] Device ID [id number] 11/06/2024 10:09 PM EDT [facility] Specimen Type POC Capillary 11/06/2024 10:09 PM EDT [facility] Blood Capillary blood specimen / Unknown 11/06/2024 10:07 PM EDT 11/06/2024 10:09 PM EDT Nathaly Nowak MD LAB POINT OF CARE TE ST DOCKED DEVICE UNSOLICITED RESULTS Final Result [facility] [address] [place] [address] * (ABNORMAL) POCT glucose meter (11/06/2024 8:22 PM EDT) [facility] POCT Glucose 256(H) 74 - 99 mg/dL [...] 11/06/2024 8:25 PM EDT [facility] Water Fitness Instructor ID Nelda Gerber 11/07/19 8:25 PM EDT [facility] Device ID [id number] 11/06/2024 8:25 PM EDT [facility] Specimen Type POC Capillary 11/06/2024 8:25 PM EDT [facility] Blood Capillary blood specimen / Unknown 11/06/2024 8:22 PM EDT 11/06/2024 8:25 PM EDT Nathaly Nowak MD LAB POINT OF CARE TE ST DOCKED DEVICE UNSOLICITED RESULTS Final Result Performing Organization Address City/[facility] Co de Phone Number [facility] [address] [place] [address] * (ABNORMAL) POCT glucose meter (11/06/2024 7:31 PM EDT) POCT Glucose 359(H) 74 - 99 mg/dL 11/06/2024 7:32 PM EDT [facility] Comment:Accuracy of a [...] for testing. Comment 11/06/2024 7:32 PM EDT [facility] Water Fitness Instructor ID Nelda Gerber 11/07/19 7:32 PM EDT HEALTH[facility]ARE LAB Device ID [id number] 11/06/2024 7:32 PM EDT [facility] Specimen Type POC Capillary 11/06/2024 7:32 PM EDT [facility] Blood Capillary blood specimen / Unknown 11/06/2024 7:31 PM EDT 11/06/2024 7:32 PM EDT us Nathaly Nowak MD LAB POINT OF CARE TE ST DOCKED DEVICE UNSOLICITED RESULTS Final Result Performing Organization Address City/[facility] Co de Phone Number [facility] [address] [place] [address] * (ABNORMAL) POCT glucose meter (11/06/2024 6:15 [...] for testing. Comment 11/06/2024 6:17 PM EDT [facility] Water F[employer] Instructor ID Estefani Sheth 11/06/2024 6:17 PM EDT [facility] Device ID [id number] 11/06/2024 6:17 PM EDT [facility] Specimen Type POC Capillary 11/06/2024 6:17 PM EDT [facility] Blood Capillary blood specimen / Unknown 11/06/2024 6:15 PM EDT 11/06/2024 6:17 PM EDT Nathaly Nowak MD LAB POINT OF CARE TE ST DOCKED DEVICE UNSOLICITED RESULTS Final Result [facility] [address] [place] [address] * (ABNORMAL) POCT glucose meter (11/06/2024 4:57 PM EDT) [facility] POCT Glucose 417(H) 74 - 99 mg/dL [...] for testing. Comment 11/06/2024 4:58 PM EDT [facility] Water Fitness Instructor ID Estefani Sheth 11/06/2024 4:58 PM EDT [facility] Device ID [id number] 11/06/2024 4:58 PM EDT [facility] Specimen Type POC Capillary 11/06/2024 4:58 PM EDT [facility] Blood Capillary blood specimen / Unknown 11/06/2024 4:57 PM EDT 11/06/2024 4:58 PM EDT Nathaly Nowak MD LAB POINT OF CARE TE ST DOCKED DEVICE UNSOLICITED RESULTS Final Result Performing Organization Address [facility] Co de Phone Number [facility] [address] [place] [address] * (ABNORMAL) POCT glucose meter (11/06/2024 2:08 PM EDT) Pathologist [facility] POCT Glucose 253(H) 74 - 99 mg/dL [...] for testing. Comment 11/06/2024 2:09 PM EDT [facility] [employer] Instructor ID Brigitte Castellon 11/06/2024 2:09 PM EDT [facility] Device ID [id number] 11/06/2024 2:09 PM EDT [facility] Specimen Type POC Capillary 11/06/2024 2:09 PM EDT [facility] Blood Capillary blood specimen / Unknown 11/06/2024 2:08 PM EDT 11/06/2024 2:09 PM EDT Nathaly Nowak MD LAB POINT OF CARE TE ST DOCKED DEVICE UNSOLICITED RESULTS Final Result Performing Organization Address City/[facility] Co de Phone Number [facility] [address] [place] [address] * (ABNORMAL) POCT glucose meter (11/06/2024 12:27 PM EDT) Pathologist [facility] POCT Glucose 228(H) 74 - 99 mg/dL 11/06/2024 12:28 PM EDT [facility] Comment:Accuracy of [...] Comment 11/06/2024 12:28 PM EDT [facility] [employer] Instructor ID Jacinta Galloway 11/06/2024 12:28 PM EDT [facility] Device ID [id number] 11/06/2024 12:28 PM EDT [facility] Specimen Type POC Capillary 11/06/2024 12:28 PM EDT [facility] Blood Capillary blood specimen / Unknown 11/06/2024 12:27 PM EDT 11/06/2024 12:28 PM EDT us Nathaly Nowak MD LAB POINT OF CARE TE ST DOCKED DEVICE UNSOLICITED RESULTS Final Result [facility] [address] [place] [address] * (ABNORMAL) Fungal Culture, Tissue and ISIDRO (11/06/2024 11:34 AM EDT) Culture Reading Mycological 4 Weeks Rare [place] Sana parapsilosis (A) 12/05/2024 8:36 AM EDT [facility] Comment: This isolate has been identified using the FDA Approved Zorapyper CA System The organism value for this result has been updated. These results have been appended to the previously preliminary verified report. Edited result: Previously reported as Yeast on 11/11/2024 at 1317 EDT. ISIDRO No fungal elements seen 12/05/2024 8:36 AM EDT [facility] Tissue Topography unknown / Unknown 11/06/2024 11:34 AM EDT 11/06/2024 12:18 PM EDT Comment:Pre-op diagnosis: Surgical wound infection [T81.49XA] Narrative Organism Antibiotic Method Susceptibility Sana parapsilosis Caspofungin ANGÉLICA 0.25 ug/ml: No Interpretation Available Sana parapsilosis Micafungin ANGÉLICA 0.25 ug/ml: No Interpretation Available Sana parapsilosis Fluconazole ANGÉLICA 0.25 ug/ml: No Interpretation Available Sana parapsilosis Voriconazole ANGÉLICA 0.008 ug/ml: No Interpretation Available Comment: Yeast susceptibilities are intended for use on blood isolates only and not from urine or other body fluids. CLSI approved breakpoints or epidemiological cutoff values (ECVs) are limited to certain yeast species with ANGÉLICA values reported for remaining results. Nathaly Nowak MD LAB MICROBIOLOGY - [facility] ATIYA FRITZ Final Result [facility] [address] [place] [address] * (ABNORMAL) Tissue Culture and Gram Stain (11/06/2024 11:34 AM EDT) Culture Moderate Growth 7:35 AM EDT [facility] Culture 2+ Enterobacter cloacae complex(A) ANGÉLICA 11/15/2024 7:35 AM EDT [facility] Comment: This isolate has been identified using the FDA Approved [employer] System The organism value for this result has been updated. These results have been appended to the previously preliminary verified report. Edited result: Previously reported as Gram Negative Jesus on 11/07/2024 at 1434 EDT. Culture 2+ Streptococcus mitis/oralis group(A) ANGÉLICA 11/15/2024 7:35 AM EDT [facility] Comment: This isolate has been identified using the FDA Approved [employer] System The organism value for this result has been updated. These results have been appended to the previously preliminary verified report. Culture 2+ Pasteurella stomatis(A) ANGÉLICA 11/15/2024 7:35 AM EDT [facility] Comment: This result was determined by MALDI tof mass spectrometry using the Beaker database and is for research use only. The organism value for this result has been updated. These results have been appended to the previously preliminary verified report. Gram Stain Result Few Gram negative rods(A) 11/15/2024 7:35 AM EDT [facility] Gram Stain Result Moderate Polymorphonuclear leukocytes(A) 11/15/2024 7:35 AM EDT [facility] Gram Stain Result Few Gram positive cocci in pairs(A) 11/15/2024 7:35 AM EDT [facility] Tissue Topography unknown / Unknown 11/06/2024 11:34 AM EDT 11/06/2024 12:18 PM EDT Comment:Pre-op diagnosis: Surgical wound infection [T81.49XA] Narrative [facility] - 11/15/2024 7:35 AM EDT [...] FDA approved. Results for research use only. Nathaly Nowak MD LAB MICROBIOLOGY - GENERAL ATIYA FRITZ Edited Result - Final [facility] [address] [place] [address] * (ABNORMAL) Anaerobic Culture (11/06/2024 11:34 AM EDT) Culture No anaerobes isolated 11/14/2024 1:25 PM EDT [facility] Culture Staphylococcus pseudintermedius( A) 11/14/2024 1:25 PM EDT [facility] Comment: This result was determined by MALDI tof mass spectrometry using the Beaker database and is for research use only. This is an appended report. These results have been appended to a previously final verified report. Tissue Topography unknown / Unknown 11/06/2024 11:34 AM EDT 11/06/2024 12:18 PM EDT Comment:Pre-op diagnosis: Surgical wound infection [T81.49XA] Narrative [facility] - 11/14/2024 1:25 PM EDT [...] Nathaly Nowak MD LAB MICROBIOLOGY - GENERAL [employer] LAM Edited Result - Final Performing Organization Address [facility] [place] [address] * (ABNORMAL) Routine Culture and Gram Stain (11/06/2024 11:29 AM EDT) Culture Moderate Growth 5:29 PM EDT [facility] Culture Enterobacter cloacae complex(A) 11/08/2024 5:29 PM EDT [facility] Comment: This isolate has been identified using the FDA Approved [employer] System For susceptibility results refer to: - [id number] The organism value for this result has been updated. These results have been appended to the previously preliminary verified report. Gram Stain Result No polymorphonuclear leukocytes seen 11/08/2024 5:29 PM EDT [facility] Gram Stain Result No organisms seen 11/08/2024 5:29 PM EDT [facility] Swab Topography unknown / Unknown 11/06/2024 11:29 AM EDT 11/06/2024 12:19 PM EDT Comment:Pre-op diagnosis: Surgical wound infection [T81.49XA] us Nathaly Nowak MD LAB MICROBIOLOGY - GENERAL ORDE LAM Final Result Performing Organization Address [facility]/ZIP Co de Phone Number [facility] [address] [place] [address] * Fungal Culture, Routine (11/06/2024 11:29 AM EDT) Culture No Fungal Growth at 1 Week 11/13/2024 8:29 AM EDT [facility] Swab Topography unknown / Unknown 11/06/2024 11:29 AM EDT 11/06/2024 12:19 PM EDT Comment:Pre-op diagnosis: Surgical wound infection [T81.49XA] Nahtaly Nowak MD LAB MICROBIOLOGY - [facility] Final Result [facility] [address] [place] [address] * (ABNORMAL) Anaerobic Culture (11/06/2024 11:29 AM EDT) Culture No anaerobes isolated 11/14/2024 1:25 PM EDT [facility] Culture Streptococcus mitis/oralis group(A) 11/14/2024 1:25 PM EDT [facility] Comment: This result was determined by [employer]DI tof mass spectrometry using the Beaker database and is for research use only. The organism value for this result has been updated. These results have been appended to the previously preliminary verified report. This is a corrected result. Previous organism was Mixed skin clifton on 11/10/2024 at 0718 EDT. Culture Staphylococcus pseudintermedius( A) 11/14/2024 1:25 PM EDT [facility] Comment: This isolate has been identified using the FDA Approved [employer] System This is an appended report. These results have been appended to a previously final verified report. Swab Topography unknown / Unknown 11/06/2024 11:29 AM EDT 11/06/2024 12:19 PM EDT Comment:Pre-op diagnosis: Surgical wound infection [T81.49XA] Narrative [facility] - 11/14/2024 1:25 PM EDT [...] GENERAL ATIYA FRITZ Edited Result - Final Performing Organization Address City/[facility] [place] [address] * Routine Culture and Gram Stain (11/06/2024 11:28 AM EDT) Culture No growth at day 4 2024 11:24 AM EDT [facility] Gram Stain Result No organisms seen 11/10/2024 11:24 AM EDT [facility] Gram Stain Result No polymorphonuclear leukocytes seen 11/10/2024 11:24 AM EDT [facility] Swab Topography unknown / Unknown 11/06/2024 11:28 AM EDT 11/06/2024 12:20 PM EDT Comment:Pre-op diagnosis: Surgical wound infection [T81.49XA] Nathaly Nowak MD LAB MICROBIOLOGY - GENERAL ORDE LAM Final Result Performing Organization Address [facility] Co de Phone Number [facility] [address] [place] [address] * Fungal Culture, Routine (11/06/2024 11:28 AM EDT) Culture No Fungal Growth at 1 Week 11/13/2024 8:29 AM EDT [facility] Swab Topography unknown / Unknown 11/06/2024 11:28 AM EDT 11/06/2024 12:20 PM EDT Comment:Pre-op diagnosis: Surgical wound infection [T81.49XA] Nathaly Nowak MD LAB MICROBIOLOGY - GENERAL ORD LAM Final Result Performing Organization Address City/[facility] Co de Phone Number [facility] [address] [place] [address] * Anaerobic Culture (11/06/2024 11:28 AM EDT) Culture No growth at day 4 11/13/2024 12:53 PM EDT [facility] Swab Topography unknown / Unknown 11/06/2024 11:28 AM EDT 11/06/2024 12:20 PM EDT Comment:Pre-op diagnosis: Surgical wound infection [T81.49XA] us Nathaly Nowak MD LAB MICROBIOLOGY - GENERAL ATIYA FRITZ Final Result Performing Organization Address [facility] [place] [address] * (ABNORMAL) POCT glucose meter (11/06/2024 10:16 AM EDT) POCT Glucose 194(H) 74 - [...] for testing. Comment 11/06/2024 10:18 AM EDT [facility] [employer] Instructor ID Lacy Griffin 11/07/19 10:18 AM EDT [facility] Device ID [id number] 11/06/2024 10:18 AM EDT [facility] Specimen Type POC Capillary 11/06/2024 10:18 AM EDT [facility] Blood Capillary blood specimen / Unknown 11/06/2024 10:16 AM EDT 11/06/2024 10:18 AM EDT Nathaly Nowak MD LAB POINT OF CARE TE ST DOCKED DEVICE UNSOLICITED RESULTS Final Result Performing Organization Address City/[facility]/ZIP Co de Phone Number [facility] [address] [place] [address] * (ABNORMAL) POCT glucose meter (11/06/2024 5:58 AM EDT) POCT Glucose 182(H) 74 - 99 mg/dL [...] Comment 11/06/2024 6:01 AM EDT [facility] Water Fitness Instructor ID Raj Laird 11/07/19 25 6:01 AM EDT [facility] Device ID [id number] 11/06/2024 6:01 AM EDT [facility] Specimen Type POC Capillary 11/06/2024 6:01 AM EDT [facility] Blood Capillary blood specimen / Unknown 11/06/2024 5:58 AM EDT 11/06/2024 6:01 AM EDT Nathaly Nowak MD LAB POINT OF CARE TE ST DOCKED DEVICE UNSOLICITED RESULTS Final Result [facility] [address] [place] [address] * (ABNORMAL) POCT glucose meter (11/06/2024 5:36 AM EDT) POCT Glucose 202(H) 74 - [...] for testing. Comment 11/06/2024 5:38 AM EDT [facility] Water Fitness Instructor ID Shahid Sanches 11/06/2024 5:38 AM EDT [facility] Device ID [id number] 11/06/2024 5:38 AM EDT [facility] Specimen Type POC Capillary 11/06/2024 5:38 AM EDT [facility] Blood Capillary blood specimen / Unknown 11/06/2024 5:36 AM EDT 11/06/2024 5:38 AM EDT us Nathaly Nowak MD LAB POINT OF CARE TE ST DOCKED DEVICE UNSOLICITED RESULTS Final Result Performing Organization Address City/[facility]/ZIP Co de Phone Number [facility] [address] [place] [address] * (ABNORMAL) Hemoglobin A1c (11/06/2024 1:07 AM EDT) Hemoglobin A1c 7.6(H) <5.7 % 11/06/2024 11:09 AM EDT [facility] Blood Venous blood specimen / Unknown Venipuncture / Unknown 11/06/2024 1:07 AM EDT 11/06/2024 1:26 AM EDT Narrative [facility] - 11/06/2024 11:09 AM EDT HA1C Interpretive Data: Diagnosis of Diabetes: Diabetic > or = 6.5% Pre-diabetic 5.7 to 6.4% Non-diabetic < or = 5.6% Glycemic Targets for Type I and Type II Diabetics: Non- Adults <7.0% Adults <6.0% Children and Adolescents <7.5% Source: [place] [employer]. Standards of medical care in diabetes,2017. Diabetes Care.2017:40 (suppl 1):S1-S135. us Nathaly Nowak MD LAB BLOOD ORDERABLES Final Resu lt [facility] [address] [place] [address] * Blood Culture (Aerobic/Anaerobet Set) (11/06/2024 1:07 AM EDT) Culture No growth at day 5 11/11/2024 2:49 AM EDT [facility] Blood Structure of right hand / Unknown Venipuncture / Unknown 11/06/2024 1:07 AM EDT 11/06/2024 2:36 AM EDT us Nathaly Nowak MD LAB MICROBIOLOGY - GENERAL ORDE RABLES Final Result [facility] [address] [place] [address] * Blood Culture (Aerobic/Anaerobet Set) (11/06/2024 1:07 AM EDT) Culture No growth at day 5 11/11/2024 3:01 AM EDT [facility] Blood Structure of antecubital vein / Unknown Venipuncture / Unknown 11/06/2024 1:07 AM EDT 11/06/2024 2:36 AM EDT us Nathaly Nowak MD LAB MICROBIOLOGY - GENERAL ORDE RABONEIDA Final Result [facility] [address] [place] [address] * (ABNORMAL) Basic metabolic panel (11/06/2024 1:07 AM EDT) Glucose, Plasma 207(H) 74 - 99 mg/dL 11/06/2024 1:41 AM EDT [facility] BUN, Plasma 20 8 - 23 mg/dL 11/06/2024 1:41 AM EDT [facility] Creatinine, Plasma 0.92 0.70 - 1.20 mg/dL 11/06/2024 1:41 AM EDT [facility] BUN/Creatinine Ratio 22 11/06/2024 1:41 AM EDT [facility] Sodium, Plasma 136 136 - 145 mmol/L 11/06/2024 1:41 AM EDT [facility] Potassium, Plasma 4.5 3.6 - 4.9 mmol/L 11/06/2024 1:41 AM EDT [facility] Chloride, Plasma 104 97 - 107 mmol/L 11/06/2024 1:41 AM EDT [facility] CO2, Plasma 22 22 - 29 mmol/L 11/06/2024 1:41 AM EDT [facility] Anion Gap 10 6 - 16 mmol/L 11/06/2024 1:41 AM EDT [facility] Total Calcium, Plasma 9.0 8.9 - 10.2 mg/dL 11/06/2024 1:41 AM EDT [facility] eGFRcr 92.3 mL/min/1.7 3m*2 11/06/2024 1:41 AM EDT [facility] Comment:Reported eGFRcr in m L/min/1.73m2 is based the CKD-EPI 2020 equation that does not use a race coefficient. Blood Venous blood specimen / Unknown Venipuncture / Unknown 11/06/2024 1:07 AM EDT 11/06/2024 1:12 AM EDT us Nathaly Nowak MD LAB BLOOD ORDERABLES Final Resu lt Performing Organization Address City/[facility]/ZIP Co de Phone Number [facility] [address] [place] [address] * Phosphorus (11/06/2024 1:07 AM EDT) Phosphorus, Plasma 3.2 2.5 - 4.5 mg/dL 11/06/2024 1:41 AM EDT [facility] Blood Venous blood specimen / Unknown Venipuncture / Unknown 11/06/2024 1:07 AM EDT 11/06/2024 1:12 AM EDT us Nathaly Nowak MD LAB BLOOD ORDERABLES Final Resu lt Performing Organization Address City/[facility]/ZIP Co de Phone Number [facility] [address] [place] [address] * Magnesium (11/06/2024 1:07 AM EDT) Pathologist [facility] Magnesium, Plasma 2.2 1.9 - 2.4 mg/dL 11/06/2024 1:41 AM EDT [facility] Blood Venous blood specimen / Unknown Venipuncture / Unknown 11/06/2024 1:07 AM EDT 11/06/2024 1:12 AM EDT us Nathaly Nowak MD LAB BLOOD ORDERABLES Final Resu lt [facility] [address] [place] [address] * (ABNORMAL) CBC (11/06/2024 1:07 AM EDT) [facility] WBC Count 9.70 3.70 - 10.30 10*3/uL LAB HEMATOLOGY METHOD 11/06/2024 1:19 AM EDT [facility] RBC Count 2.89(L) 4.60 - 6.10 10*6/uL LAB HEMATOLOGY METHOD 11/06/2024 1:19 AM EDT [facility] HGB 8.8(L) 13.7 - 17.5 g/dL LAB HEMATOLOGY METHOD 11/06/2024 1:19 AM EDT [facility] HCT 26.2(L) 40.0 - 51.0 % LAB HEMATOLOGY METHOD 11/06/2024 1:19 AM EDT [facility] Platelet Count 542(H) 155 - 369 10*3/uL LAB HEMATOLOGY METHOD 11/06/2024 1:19 AM EDT [facility] MCV 91 79 - 98 fL LAB HEMATOLOGY METHOD 11/06/2024 1:19 AM EDT [facility] MCH 30.4 26.0 - 32.0 pg LAB HEMATOLOGY METHOD 11/06/2024 1:19 AM EDT [facility] MCHC 33.6 30.7 - 35.5 g/dL LAB HEMATOLOGY METHOD 11/06/2024 1:19 AM EDT [facility] RDW 13.2 11.5 - 14.5 % LAB HEMATOLOGY METHOD 11/06/2024 1:19 AM EDT [facility] MPV 8.7(L) 8.8 - 12.5 fL LAB HEMATOLOGY METHOD 11/06/2024 1:19 AM EDT [facility] nRBC 0.0 <=0.0 per 100 WBCs LAB HEMATOLOGY METHOD 11/06/2024 1:19 AM EDT [facility] Blood Venous blood specimen / Unknown Venipuncture / Unknown 11/06/2024 1:07 AM EDT 11/06/2024 1:12 AM EDT us Nathaly Nowak MD LAB BLOOD ORDERABLES Final Resu lt Performing Organization Address City/[facility]/ZIP Co de Phone Number [facility] [address] [place] [address] * Gold Top (11/06/2024 12:58 AM EDT) Extra Hold for add-ons 11/06/2024 3:21 AM EDT [facility] Comment:Auto resulted. Blood Venous blood specimen / Unknown 11/06/2024 12:58 AM EDT 11/06/2024 1:13 AM EDT us Nathaly Nowak MD LAB BLOOD ORDERABLES Final Resu lt Performing Organization Address [facility] Co de Phone Number [facility] [address] [place] [address] * Gold Top (11/06/2024 12:58 AM EDT) Extra Hold for add-ons 11/06/2024 3:21 AM EDT [facility] Comment:Auto resulted. Blood Venous blood specimen / Unknown 11/06/2024 12:58 AM EDT 11/06/2024 1:13 AM EDT us Nathaly Nowak MD LAB BLOOD ORDERABLES Final Resu lt Performing Organization Address City/[facility]/ZIP Co de Phone Number [facility] [address] [place] [address] * Light Green Top (11/06/2024 12:58 AM EDT) Extra Hold for add-ons 11/06/2024 3:21 AM EDT [facility] Comment:Auto resulted. Blood Venous blood specimen / Unknown 11/06/2024 12:58 AM EDT 11/06/2024 1:13 AM EDT us Nathaly Nowak MD LAB BLOOD ORDERABLES Final Resu lt Performing Organization Address [facility]/ZIP Co de Phone Number [facility] [address] [place] [address] * Light Blue Top (11/06/2024 12:58 AM EDT) Extra Hold for add-ons 11/06/2024 3:21 AM EDT [facility] Comment:Auto resulted. Blood Venous blood specimen / Unknown 11/06/2024 12:58 AM EDT 11/06/2024 1:13 AM EDT Nathaly Nowak MD LAB BLOOD ORDERABLES Final Resu lt Performing Organization Address [facility] Co de Phone Number [facility] [address] [place] [address] * Light Blue Top (11/06/2024 12:58 AM EDT) Extra Hold for add-ons 11/06/2024 3:21 AM EDT [facility] Comment:Auto resulted. Blood Venous blood specimen / Unknown 11/06/2024 12:58 AM EDT 11/06/2024 1:13 AM EDT us Nathaly Nowak MD LAB BLOOD ORDERABLES Final Resu lt Performing Organization Address City/[facility] Co de Phone Number [facility] [address] [place] [address] * (ABNORMAL) POCT glucose meter (11/06/2024 12:45 AM EDT) POCT Glucose 204(H) 74 - 99 mg/dL 11/06/2024 12:48 AM EDT [facility] Comment:Accuracy of [...] Comment 11/06/2024 12:48 AM EDT [facility] Water F[employer] Instructor ID Raj Laird 11/07/19 12:48 AM EDT [facility] Device ID [id number] 11/06/2024 12:48 AM EDT [facility] Specimen Type POC Capillary 11/06/2024 12:48 AM EDT [facility] Blood Capillary blood specimen / Unknown 11/06/2024 12:45 AM EDT 11/06/2024 12:48 AM EDT Nathaly Nowak MD LAB POINT OF CARE TE ST DOCKED DEVICE UNSOLICITED RESULTS Final Result Performing Organization Address City/State/[facility] Co de Phone Number [facility] [address] [place] [address] documented in this encounter Visit Diagnoses Diagnosis [...] nightly (2099 & 030), First dose on Mon11/07/24 at 2100, Until [...] PRN, Starting on Mon11/06/24 at 1726, Until Mon11/07/24 at 0853, Routine, if FSBS => 301 Bolus from Bag 11/06/2024 7:39 PM EDT 3 Units insulin regular in sodium chloride 0.9 % 1 UNIT/ML infusion (Standard Insulin Protocol) 0.5-30 Units/hr (0.5-30 mL/hr), Intravenous, Titrated, Starting on Mon11/06/24 at 1815, Until Yadira 11/07/24 at 1051, Routine New Bag 11/07/2024 10:35 [...] 10 mg, Oral, Daily, First dose on Mon11/07/24 at 0900, Until Discontinued, Routine, Recovery(Phase II-Outpatient)/On Unit(Inpatient) Given 11/08/2024 8:37 AM EDT 10 mg Given 11/07/2024 9:40 AM EDT 10 mg lisinopril tablet 10 mg 10 mg, Oral, Once, 1 dose, On Mon11/08/24 at 1130, Routine Given 11/08/2024 12:58 PM EDT 10 mg lisinopril tablet 10 mg 10 mg, Oral, Once, 1 dose, On Mon11/11/24 at 0945, Routine Given 11/11/2024 9:42 AM EDT 10 mg lisinopril tablet 20 mg 20 mg, Oral, Daily, First dose (after last modification) on Mon11/09/24 at 0900, Until Discontinued, Routine, Recovery(Phase II-Outpatient)/On [...] Yadira 11/14/24 at 1804, Routine, nausea, vomiting oxyCODONE (Roxicodone) [...] PRN, Starting on Mon11/14/24 at 0922, Until Yadira 11/14/24 at 1804, Routine, moderate pain, severe pain [...] hours, First dose (after last modification) on Mon11/07/24 at 1400, Until Discontinued, Routine New Bag [...] needed, Starting on Mon11/06/24 at 0031, Until [facility] 11/14/24 at 1804, Routine, line care sodium [...] needed, Starting on Mon11/06/24 at 0753, Until [facility] 11/14/24 at 1804, Routine, On Unit - [...] parameters not met)1210 (Given - Provider: Yazmin Bhatt RN)1800 (Canceled Entry - Provider: Automatic Discharge Provider - Comment: Automatically canceled at discontinue of medication order) aspirin chewable tablet 81 mg 81 mg, Oral, Daily, First dose on Mon11/08/24 at 0900, Until Discontinued, Routine 0938 (Given - Provider: Devora Bo) 0839 (Given - Provider: Devora Bo) 0856 (Given - Provider: Yazmin Bhatt, CHRISTIAN) cefepime (Maxipime) 2 g in sodium chloride 0.9% 100 mL IVPB (vial adapter required) (CANCELED) 2 g, Intravenous, Every 8 hours, First dose on Mon11/07/24 at 1600, Until Discontinued, Routine 0021 (New Bag - Provider: Jonathan Vale RN)1356 (New Bag - Provider: Devora oB)1805 (New Bag - Provider: Devora Bo) 0037 (New Bag - Provider: Jonathan Vale, CHRISTIAN) ertapenem (INVanz) 1 g in sodium chloride 0.9% 100 mL IVPB (vial adapter required) 1 g, Intravenous, Every 24 hours, First dose on Mon11/13/24 at 0715, Until Discontinued, Routine 0839 (New Bag - Provider: Devora Bo) 0918 (Canceled Entry - Provider: Bianca Knight, PharmD - Comment: due at 0900)0930 (New Bag - Provider: Yazmin Bhatt, CHRISTIAN) insulin glargine-yfgn 100 UNIT/ML injection 28 Units 28 Units, Subcutaneous, Nightly, First dose on Mon11/07/24 at 2100, Until Discontinued, Routine 2125 (Given - Provider: Jonathan Vale RN) 2031 (Given - Provider: Jonathan Vale, RN) insulin lispro (Admelog) 100 units/mL injection - Correction - Resistant Dose 0-10 Units, Subcutaneous, 3 times daily with meals, First dose on Mon11/07/24 at 0945, Until Discontinued, Routine 0917 (Not Given - Provider: Devora Bo - Reason: Order parameters not met - Comment: 138)1356 (Given - Provider: Devora Bo)1806 (Given - Provider: Devora Bo) 0839 (Given - Provider: Devora Bo)1226 (Not [...] Vale RN - Reason: Order parameters not met)2126 (Not Given - Provider: Jonathan Vale RN - Reason: Order parameters not met) 0258 (Not Given - Provider: Jonathan Vale RN - Reason: Order parameters not met)2100 (Given - Provider: Jonathan Vale RN) 0413 (Not Given - Provider: Jonathan Vale [...] Bo) 0856 (Given - Provider: Yazmin Bhatt RN)1730 (Canceled [...] Provider: Devora Bo)2123 (Given - Provider: Jonathan Vale, CHRISTIAN) 0838 (Given - Provider: Devora Bo)1317 (Given - Provider: Devora Bo)1753 (Given - Provider: Devora Bo)203 (Given - Provider: Jonathan Vale, CHRISTIAN) 0856 (Given - Provider: Yazmin Bhatt, CHRISTIAN)1354 (Given - Provider: Yazmin Bhatt RN)1800 (Canceled Entry - Provider: Automatic Discharge Provider - Comment: Automatically canceled at discontinue of medication order) metoprolol tartrate (Lopressor) tablet 100 mg 100 mg, Oral, 2 times daily, First dose on Mon11/06/24 at 0040, Until Discontinued, Routine 0938 (Given - Provider: Devora Bo)2123 (Given - Provider: Jonathan Vale RN) 0838 (Given - Provider: Devora Bo)203 (Given - Provider: Jonathan Vale RN) 0856 (Given - Provider: Yazmin Bhatt, CHRISTIAN) metroNIDAZOLE (Flagyl) tablet 500 mg (CANCELED) 500 mg, Oral, 3 times daily, First dose on Mon11/07/24 at 2000, Until Discontinued, Routine 0940 (Given - Provider: Devora Bo)1805 (Given - Provider: Devora Bo)212 (Given - Provider: Jonathan Vale, CHRISTIAN) micafungin (Mycamine) 150 mg in sodium chloride 0.9 % 100 mL IVPB 150 mg, Intravenous, Every 24 hours, First dose (after last modification) on Mon11/13/24 at 0015, Until Discontinued, at 125 mL/hr, Administer over 60 Minutes, Routine 2326 (New Bag - Provider: Jonathan Vale RN) 2328 (New Bag - Provider: Jonathan Vale RN) [...] Vale RN) 0856 (Given - Provider: Yazmin Bhatt, CHRISTIAN) NIFEdipine XL (Procardia XL) 24 hr tablet [...] Vale RN) 0840 (Given - Provider: Devora Bo)2031 (Given - Provider: Jonathan Vale RN) 0856 (Given - Provider: Yazmin Bhatt RN) sodium chloride 0.9 % flush 10 mL [...] mL/hr, Routine 0939 (Given - Provider: Devora Bo)2149 (Given - Provider: Jonathan Vale RN - [...] Devora Bo) 0018 (Given - Provider: Jonathan Vale RN) oxyCODONE (Roxicodone) immediate release tablet 5 mg(Linked [...] needed, Starting on Mon11/06/24 at 0031, Until Yadira 11/14/24 at 1804, Routine, line care sodium chloride 0.9 % flush 10 mL(Linked Group 2) 10 mL, Intravenous, As needed, Starting on Mon11/06/24 at 0753, Until Yadira 11/14/24 at 1804, Routine, On Unit - [...] needed, Starting on Mon11/06/24 at 0031, Until Yadira 11/14/24 at 1804, Routine, line care Group 2: [...] Until Mon11/14/24 at 1804, Routine, nausea, vomiting Or ondansetron (Zofran) injection 4 mgJump to med 4 mg, Intravenous, Every 6 hours PRN, Starting on Mon11/06/24 at 0033, Until Mon11/14/24 at 1804, Routine, vomiting, nausea Or ondansetron [...] documented as of this encounter Care Teams Isotope Technologist Relationship Specialty Start Date End Date Asad Victor MD [address] [place] [id number] PCP - General 10/07/22 documented as of this encounter
--- OUTSIDE RECORDS SUMMARY | 2024-11-06 10:08 | XMS_ITS | Encounter Summary ---
Author Organization Healthcare Address [address] [place] [address] Care Team Providers Care Frame Gate Mortiser Operator Name Role Phone Asad Victor MD Primary Care Provider + [phone] Reason for Visit * Reason Comments Post-op Problem Wound Check * Auth/Cert (Routine) Specialty Diagnoses / Procedures Referred By Contac t Referred To Contact Diagnoses Wound infection Post-op Vasc Sx wounds - sx on 10/17 at Nathaly Nowak MD [address] [address] Phone: tel: fax: [facility] Emergency Department [address] [place] [address] Phone: tel: Referral ID Status Reason Start Date Expiration Date Visits Re quested Visits Authorized [id number] 1 1 Encounter Details Date Type Department Care Team (Late st Contact Info) Description 11/06/2024 10:08 AM EDT - 11/06/2024 11:38 AM EDT Surgery [facility] OPERATING ROOM [address] [place] [address] Nathaly Nowak MD [id number] [place] [address] Left groin exploration and washout, [...] first t dino in the morning (EYE-WOOL BUYER) to steady your nerves or to get rid of a hangover? 0 10/18/2021 CAGE Questionnaire Score 0 022 Utilities Answer Date Recorded In the past 12 months has [employer], gas, oil, or water [employer] threatened to shut off services in your [...] Carmona with any questions or concerns at [phone]. It is important that you get your [...] for 10 days. 60 tablet 11/14/2024 5 documented as of this encounter Miscellaneous [...] Note Bev Borja 64 y.o. male CSN: [id number] Admission: 11/05/2024 9:45 PM Primary Problem: Wound infection Primary Show Dog Trainer: Primary Caregiver: Self Assistance Available at Discharge: [...] previous admission in last 30 days Follow-up: [facility] [address] [facility] [address] Go to Infusion Clinic. Please arrive at [address] [facility] [address] Go to Wound care clinic. First appointment is 1:10 pm. Please call [phone] with scheduling concerns. Discharge Transportation: Transportation Anticipated: medical transport Transportation Home at Discharge: Medical Transport Follow Up Transport: Transportation Needed to Follow up Appoinments: Medical Transport Additional Comments: Patient discharging home. No other SW needs identified. Mariia Monterroso RISK INVESTIGATOR * Discharge Summary - Melecio Echevarria DO - 11/14/2024 12:46 PM EDT Hospitalization Admit Date/Time: 11/05/2024 9:45 PM Admitting Attending: Nathaly Nowak Discharge Date: 11/14/2024 Discharge Attending Physician: Nathaly Nowak MD PCP name and Address: Asad Victor MD (Inactive) [address] [place] [address] / [place] [address] Referring provider name and address: Wade Cowart, DO [address] [place] [address] Chief Concern, Brief History of Present Illness, and Hospital Course Mr. Borja is a 64 y/o male that presented to [facility] on 11/06/2024 for surgical wound infection [...] Your Medications These [facility] [place] [facility] - GLENDA Solorzano - [address], [place] [address] ertapenem injection micafungin injection Discharge Diagnosis Medical [...] Time Provider Department Center 11/26/2024 2:00 PM [facility] 1 [facility] 11/26/2024 2:30 PM [facility] 2 [facility] 11/26/2024 3:20 PM Elisabet Schuster PA [facility] [...] a 64 y/o male that presented to [facility] on 11/06/2024 for surgical wound infection [...] Note Bev Borja 64 y.o. male CSN: [id number] Admission: 11/05/2024 9:45 PM Primary Problem: Wound infection Wound vac to be delivered today by at bedside. SW sent referral/orders to [facility] wound care center (fax [phone]) and infusion clinic (fax [phone]). Plan to discharge tomorrow. SW will continue to follow. Mariia Monterroso RISK INVESTIGATOR * Progress Notes - Bianca Knight PharmD - 11/13/2024 12:55 PM EDT Vancomycin therapy has been stopped per ID recommendation. Pharmacist will sign off from dosing and monitoring vancomycin. Please re- consult a pharmacist if more vancomycin is indicated. Bianca Knight PharmD, [facility] * Progress Notes - Ailin Levy MBBS [...] Lumen PICC Antimicrobial Regimen: IV Ertapenem 1g [id number] start date:11/06/2024 Projected End date:12/18/2024 IV Micafungin 150mg [id number] Start date: 11/12/2024 Projected End Date: 12/24/2024 [...] OPAT Team Attn: Dr Kraus Fax #: [phone] Appointments: (Dr Appiah 08/02/2024 at 2.30pm) at: [facility]: [address] [place] [address] (Select Option 3 for IV Antibiotic / PICC line related issues) For questions regarding OPAT prior to discharge, reach out to the OPAT team via [employer] Secure Chat (Group: OPAT Referral Team). For all questions regarding OPAT after discharge should be directed to the OPAT Team at (Select Option 3 for IV Antibiotics/PICC Issues) between 8am-5pm. After 5 pm, or during weekends/ holidays, please call the paging chalk molding machine operator at to reach the on-call [...] [facility] Department of Surgery Division of Vascular Surgery Surgery Progress Note 11/13/24 Bev Borja Subjective Subjective: HPI 64yoM PMHx COPD, T2DM, HLD, HTN, RLS, CAD s/p PCI (on Xarelto) s/p pacemaker c/b left SANDIP pseudoaneurysm s/p thrombin injection 09/21/24, CLI s/p left femoral endarterectomy with EIA/LIQUOR INSPECTOR stenting 10/17/24, who [facility] [...] 09/21/24, CLI s/p left femoral endarterectomy with EIA/LIQUOR INSPECTOR stenting 10/17/24, who presented to [facility] [...] the findings. Cardiac Device Check - PRE-OR [facility] EP-Device Clinic: Pre-operative CIED Report Assessment and Sara-Procedural Reommendations: Name: Bev Borja Date: 10/17/2024 : 1960 Age: 64 y.o. Patient has a Environmental Designer: [employer]PENTER WOODEN TANK ERECTING-PM Remaining battery longevity adequate. Lead integrity test [...] recommendations. Supporting reports can be found in [employer] media file. Micro: Susceptibility data from [...] Units Date/Time Tissue Culture and Gram Stain [[id number]] (Abnormal) (Susceptibility) Collected: 11/06/24 1134 Order Status: Completed Specimen: Tissue from Other (specify site) Updated: 11/12/24 1334 Culture Moderate Growth 2+ Enterobacter cloacae complex Comment: This isolate has been identified using the FDA Approved Zhaogangyper CA System The organism value for this result has been updated. These results have been appended to the previously preliminary verified report. Edited result: Previously reported as Gram Negative Jesus on 11/07/2024 at 1434 EDT. 2+ Streptococcus mitis/oralis group Comment: This isolate has been identified using the FDA Approved MALDI Xentionyper CA System The organism value for this result has been updated. These results have been appended to the previously preliminary verified report. 2+ Pasteurella stomatis Comment: This result was determined by MALDI tof mass spectrometry using the [employer] database and is for research use only. [...] stewardship team. Comprehensive GI Panel by PCR [[id number]] (Normal) Collected: 11/12/24 0950 Order Status: Completed [...] if clinically indicated. Clostridiodes (Clostridium) difficile PCR [[id number]] (Normal) Collected: 11/12/24 0950 Order Status: Completed [...] high complexity clinical laboratory testing. Anaerobic Culture [[id number]] Collected: 11/06/24 1128 Order Status: Completed Specimen: Swab from Other (specify site) Updated: 11/12/24 1118 Culture No growth at day 4 Fungal Culture, Tissue and ISIDRO [[id number]] (Abnormal) Collected: 11/06/24 1134 Order Status: Completed Specimen: Tissue from Other (specify site) Updated: 11/12/24 1033 Culture Reading Mycological 4 Weeks Rare [place] Sana parapsilosis Comment: This isolate has been identified using the FDA Approved MALDI Xentionyper CA System The organism value for this result has been updated. These results have been appended to the previously preliminary verified report. Edited result: Previously reported as Yeast on 11/11/2024 at 1317 EDT. ISIDRO No fungal elements seen Additional Susceptibilities and/or Identification [[id number]] Collected: 11/11/24 1240 Order Status: Completed Specimen: Tissue from Wound (specify site): Additional Susceptibilities and/or Identification [[id number]] Collected: 11/11/24 1238 Order Status: Completed Specimen: Tissue from Wound (specify site): Additional Susceptibilities and/or Identification [[id number]] Collected: 11/11/24 1237 Order Status: Completed Specimen: Tissue from Wound (specify site): AFB Culture, Non Respiratory Source and Acid Fast Stain [[id number]] Collected: 11/06/24 1134 Order Status: Completed Specimen: Tissue from Other (specify site) Updated: 11/11/24 0938 AFB Culture No Mycobacterial Growth <1 Week Acid Fast Stain No acid fast bacilli seen Blood Culture (Aerobic/Anaerobet Set) [[id number]] Collected: 11/06/24106 Order Status: Completed Specimen: Blood from AC, Left Updated: 11/11/24 0301 Culture No growth at day 5 Blood Culture (Aerobic/Anaerobet Set) [[id number]] Collected: 11/06/24106 Order Status: Completed Specimen: Blood [...] [facility] and [...] to stay a facility, plan for [facility] daily IV abx. Plan for [...] tablet 1,000 mg 1,000 mg Oral q6h [facility] Anthony Reyes MD 1,000 mg [...] Prevent or Manage Pain Flowsheets (Taken 11/11/2024 4621 by Jonathan Vale RN) Sensory Stimulation Regulation: care clustered lighting decreased quiet environment promoted Medication Review/Management: medications reviewed * Consults - Anabel Ovalle RD - 11/12/2024 9:59 AM EDT Adult Nutrition Evaluation Note Bev Borja 64 y.o. male CSN: [id number] Room/Bed 682/682B Nutrition evaluation type: assessment Reason for evaluation: LOS Hospital course: 64 y.o. male with PMHx significant for COPD, CAD s/p PCI (on Xarelto) s/p pacemaker c/b left SANDIP pseudoaneurysm s/p thrombin injection 09/21/24, chronic limb ischemia s/p left femoralendarterectomy with external iliac/common femoral artery stenting 10/17/24, T2DM, HLD, HTN, RLS who presented to the [facility] on 11/05/2024 with problems with his [...] lb 3.6 oz) BMI (Calculated): 30.41 [place] Body Weight (kg): 67.3 Percent [place] Body Weight: 131 Adjusted Body Weight (kg): [...] oz) Estimated Needs: Kcal/ K-30 Kcal Provided: 9869-8360 Kcal Needs Based On: Adjusted weight Gm Protein/ Kg : 1.2-1.5 Protein Provided: 87-108 Protein Needs Based On: Adjusted weight Metabolic Cart Study Results: Current Nutrition Intake: Diet Order: Adult Diet Diet Texture: Regular Adult Carbohydrate Restriction: Consistent CHO 1 (5000-1048 Jatinder, 65 g/meal) Percent Meals Eaten (%): [...] ENDARTERECTOMY N/A 2017 Endarterectomy Carotid Artery from [facility] CORONARY ANGIOPLASTY Left Coronary Angiography With Concomitant Left Heart Catheterization from [facility] CORONARY ARTERY BYPASS GRAFT N/A 2018 3V ELBOW SURGERY Right ENDARTERECTOMY Left 10/17/2024 common/SFA/Profunda thromboendarterectomy, EIA/LIQUOR INSPECTOR stent HERNIA REPAIR KNEE ARTHROSCOPY Left VASCULAR SURGERY Left 09/21/2024 LIQUOR INSPECTOR pseudoaneurym injection [3] Social History Tobacco Use [...] from the original note were not included. [facility] Department of Surgery Division of Vascular Surgery Surgery Progress Note 11/12/24 Bev Perez Cristoferkeo Subjective Subjective: HPI 64yoM PMHx COPD, T2DM, HLD, HTN, RLS, CAD s/p PCI (on Xarelto) s/p pacemaker c/b left SANDIP pseudoaneurysm s/p thrombin injection 09/21/24, CLI s/p left femoral endarterectomy with EIA/LIQUOR INSPECTOR stenting 10/17/24, who [facility] [...] 09/21/24, CLI s/p left femoral endarterectomy with EIA/LIQUOR INSPECTOR stenting 10/17/24, who [facility] [...] the findings. Cardiac Device Check - PRE-OR [facility] EP-Device Clinic: Pre-operative CIED Report Assessment and Sara-Procedural Reommendations: Name: Bev Borja Date: 10/17/2024 : 1960 Age: 64 y.o. Patient has a Environmental Designer: [employer] CARPENTER WOODEN TANK ERECTING-PM Remaining battery longevity adequate. Lead integrity test [...] recommendations. Supporting reports can be found in [employer] media file. Micro: Susceptibility data from [...] Units Date/Time Tissue Culture and Gram Stain [[id number]] (Abnormal) (Susceptibility) Collected: 11/06/24 1134 Order Status: Completed Specimen: Tissue from Other (specify site) Updated: 11/12/24 1334 Culture Moderate Growth 2+ Enterobacter cloacae complex Comment: This isolate has been identified using the FDA Approved Zigswitcher CA System The organism value for this result has been updated. These results have been appended to the previously preliminary verified report. Edited result: Previously reported as Gram Negative Jesus on 11/07/2024 at 1434 EDT. 2+ Streptococcus mitis/oralis group Comment: This isolate has been identified using the FDA Approved Zigswitcher CA System The organism value for this result has been updated. These results have been appended to the previously preliminary verified report. 2+ Pasteurella stomatis Comment: This result was determined by MALDI tof mass spectrometry using the [employer] database and is for research use only. [...] stewardship team. Comprehensive GI Panel by PCR [[id number]] (Normal) Collected: 11/12/24 0950 Order Status: Completed [...] if clinically indicated. Clostridiodes (Clostridium) difficile PCR [[id number]] (Normal) Collected: 11/12/24 0950 Order Status: Completed [...] high complexity clinical laboratory testing. Anaerobic Culture [[id number]] Collected: 11/06/24 1128 Order Status: Completed Specimen: Swab from Other (specify site) Updated: 11/12/24 1118 Culture No growth at day 4 Fungal Culture, Tissue and ISIDRO [[id number]] (Abnormal) Collected: 11/06/24 1134 Order Status: Completed Specimen: Tissue from Other (specify site) Updated: 11/12/24 1033 Culture Reading Mycological 4 Weeks Rare [place] Sana parapsilosis Comment: This isolate has been identified using the FDA Approved Zhaogangyper CA System The organism value for this result has been updated. These results have been appended to the previously preliminary verified report. Edited result: Previously reported as Yeast on 11/11/2024 at 1317 EDT. ISIDRO No fungal elements seen Additional Susceptibilities and/or Identification [[id number]] Collected: 11/11/24 1240 Order Status: Completed Specimen: Tissue from Wound (specify site): Additional Susceptibilities and/or Identification [[id number]] Collected: 11/11/24 1238 Order Status: Completed Specimen: Tissue from Wound (specify site): Additional Susceptibilities and/or Identification [[id number]] Collected: 11/11/24 1237 Order Status: Completed Specimen: Tissue from Wound (specify site): AFB Culture, Non Respiratory Source and Acid Fast Stain [[id number]] Collected: 11/06/24 1134 Order Status: Completed Specimen: Tissue from Other (specify site) Updated: 11/11/24 0938 AFB Culture No Mycobacterial Growth <1 Week Acid Fast Stain No acid fast bacilli seen Blood Culture (Aerobic/Anaerobet Set) [[id number]] Collected: 11/06/24106 Order Status: Completed Specimen: Blood from AC, Left Updated: 11/11/24 0301 Culture No growth at day 5 Blood Culture (Aerobic/Anaerobet Set) [[id number]] Collected: 11/06/24106 Order Status: Completed Specimen: Blood [...] OSH. On 11/06, pt went to the [facility] vascular surgery for left groin [...] tablet 1,000 mg 1,000 mg Oral q6h [facility] Anthony Reyes MD 1,000 mg at 11/12/24 1356 aspirin chewable tablet 81 mg 81 mg Oral Daily Reid Daniels MD 81 mg at 11/12/24 0938 cefepime (Maxipime) 2 g in sodium chloride 0.9% 100 mL IVPB (vial adapter required) 2 g [id number] Reid Daniels MD 36.7 mL/hr at 11/12/24 [...] PM Anthony Reyes MD 0.4 mg at [id number] Vancomycin HCl in NaCl (Vancocin) IVPB 1,000 [...] send him home on micafungin as Rare [place] Sana parapsilosis grew and we do not [...] Jonathan Vlae RN Outcome: Ongoing, Progressing Intervention: Monitor Pain [...] Note Bev Borja 64 y.o. male CSN: [id number] Admission: 11/05/2024 9:45 PM Primary Problem: Wound infection Patient refusing inpatient placement for IV abx. [facility] infusion clinic can provide treatment. Face sheet, IV abx orders, and order for PICC care/labs/dressing changes need to be faxed to [phone]. Voicemail left with wound care clinic. Wound vac approved per , delivery pending. Crysll continue to follow. Mariia Monterroso RISK INVESTIGATOR * Progress Notes - Dotty Sethi [...] the findings. Cardiac Device Check - PRE-OR [facility] EP-Device Clinic: Pre-operative CIED Report Assessment and Sara-Procedural Reommendations: Name: Bev Borja Date: 10/17/2024 : 1960 Age: 64 y.o. Patient has a Environmental Designer: Berger CARPENTER WOODEN TANK ERECTING-PM Remaining battery longevity adequate. Lead integrity test [...] recommendations. Supporting reports can be found in [employer] media file. Micro: Susceptibility data from [...] Non Respiratory Source and Acid Fast Stain [[id number]] Collected: 11/06/24 1134 Order Status: Completed Specimen: Tissue from Other (specify site) Updated: 11/11/24 0938 AFB Culture No Mycobacterial Growth <1 Week Acid Fast Stain No acid fast bacilli seen Blood Culture (Aerobic/Anaerobet Set) [[id number]] Collected: 11/06/24106 Order Status: Completed Specimen: Blood from AC, Left Updated: 11/11/24 0301 Culture No growth at day 5 Blood Culture (Aerobic/Anaerobet Set) [[id number]] Collected: 11/06/24 010 Order Status: Completed Specimen: Blood from Hand, Right Updated: 11/11/24 0249 Culture No growth at day 5 Anaerobic Culture [[id number]] Collected: 11/06/24 1128 Order Status: Completed Specimen: Swab from Other (specify site) Updated: 11/10/24 1441 Culture No growth at day 4 Routine Culture and Gram Stain [[id number]] Collected: 11/06/24 1128 Order Status: Completed Specimen: Swab from Other (specify site) Updated: 11/10/24 1124 Culture No growth at day 4 Gram Stain Result No organisms seen No polymorphonuclear leukocytes seen Anaerobic Culture [[id number]] (Abnormal) Collected: 11/06/24 112 Order Status: Completed Specimen: Swab from Other (specify site) Updated: 11/10/24 0718 Culture No anaerobes isolated Mixed skin clif[place] Comment: The organism value for this result has been updated. These results have been appended to the previously preliminary verified report. Narrative: Mixed Skin [place] includes Streptococcus mitis/oralis group and Staphylococcus Pseudintermedius Anaerobic Culture [[id number]] (Abnormal) Collected: 11/06/24 1134 Order Status: Completed [...] [facility] and [...] mL IVPB (vial adapter required) 2 g [id number] Reid Daniels MD 36.7 mL/hr at 11/11/24 [...] 100 mg 100 mg Oral BID Anthony Ryees MD 100 mg at 11/11/24 08 metroNIDAZOLE [...] PM Anthony Reyes MD 0.4 mg at [id number] Vancomycin HCl in NaCl (Vancocin) IVPB 1,000 [...] from the original note were not included. [facility] Department of Surgery Division of Vascular Surgery Surgery Progress Note 11/11/24 Bve Borja Subjective Subjective: HPI 64yoM PMHx COPD, T2DM, HLD, HTN, RLS, CAD s/p PCI (on Xarelto) s/p pacemaker c/b left SANDIP pseudoaneurysm s/p thrombin injection 09/21/24, CLI s/p left femoral endarterectomy with EIA/LIQUOR INSPECTOR stenting 10/17/24, who [facility] [...] 09/21/24, CLI s/p left femoral endarterectomy with EIA/LIQUOR INSPECTOR stenting 10/17/24, who presented to [facility] [...] Edited by: Reid Daniels MD at 11/11/2024 0878 Dispo: Continue Current Level of Care Reid [...] to follow, Submitted by: Kalpesh Lord PharmD, [facility] 11/10/2024 12:45 PM * Care Plan - [...] 09/21/24, CLI s/p left femoral endarterectomy with EIA/LIQUOR INSPECTOR stenting 10/17/24, who [facility] [...] 09/21/24, CLI s/p left femoral endarterectomy with EIA/LIQUOR INSPECTOR stenting 10/17/24, who presented to [facility] [...] Barraza RN Authorized by: Nathaly Nowak MD [place] Protocol: Verbal consent obtained?: Yes Written consent [...] selection rationale: Left pacemaker Catheter Lot #: [id number] Catheter respiratory therapist: [employer] Catheter placed: Single lumen Catheter size: 4 [...] 09/21/24, CLI s/p left femoral endarterectomy with EIA/LIQUOR INSPECTOR stenting 10/17/24, who [facility] [...] 09/21/24, CLI s/p left femoral endarterectomy with EIA/LIQUOR INSPECTOR stenting 10/17/24, who presented to [facility] [...] Level of Care [place] M4 student [facility] Cosigned by Nathaly Nowak MD at 11/11/2024 [...] session. Patient reports he went to [facility] 12th floor via w/c yesterday to [...] Mobility: Ambulatory- community (was utilizing scooter at [employer] since discharge) Mobility [place]: Independent gait with device History of Falls: [...] Mobility Bed Mobility Exam: Scooting/Bridging Level of [place]: Modified independence Bed Mobility Exam: Supine to Sit Level of [place]: Modified [place] Transfers Transfer Exam: Sit to stand Level of [place]: Modified independence Assistive Device: Rollator Transfer Exam: Stand to Sit Level of [place]: Modified independence Assistive Device: Rollator Ambulation Device: [...] and endurance. Standardized Assessments [facility] 6-Clicks Mobility Assessment Difficulty patient has [...] a railing?: A little [facility] 6-Clicks Mobility Assessment Total : 22 [...] Mobility Ambulatory- community (was utilizing scooter at [employer] since discharge) Mobility [place] Independent gait with device History of Falls [...] distal to knee) BED MOBILITY Level of [place] Physical/Non-physical Assist Adaptive Equipment Utilized Scooting/ Bridging Modified independence Supine to Sit Modified [place] TRANSFERS Level of [place] Physical/Non-physical Assist Adaptive Equipment Utilized Sit to Stand Modified independence Rollator Stand to sit Modified independence Rollator Toilet Transfer Modified independence Grab bar FUNCTIONAL MOBILITY Ambulation Modified independent 200ft x2 with seated rest break between bouts; RPE 5-7/10. Cues forsafety with rollator brakes. Rollator Comments BALANCE Postural Appearance Posture: Within Functional Limits Level of [place] Balance Support Static Sit Independent Feet supported Dynamic Sit Independent Feet supported Static Stand Independent Right upper extremity support, Left upper extremity support (via rollator) Dynamic Stand Independent Right upper extremity support, Left upper extremity support (via rollator) STANDARDIZED ASSESSMENTS [facility] 6-Click Daily Activities Help from Other: Don/Doff Regular Lower Body Clothings: None Help From Other: Bathing: None Help From Other: Toileting: None Help From Other: Don/Doff Upper Body Clothings: None Help From Other: Grooming: None Help From Other: Eating Meals: None [facility] 6 Click - Daily Activities Score: [...] needed areas of treatment space. Level of [place] Interventions Grooming Modified independent Standing sinkside Pt [...] Note Bev Borja 64 y.o. male CSN: [id number] Admission: 11/05/2024 9:45 PM Primary Problem: Wound [...] follow and assist as needed. Mariia Monterroso RISK INVESTIGATOR * Progress Notes - Bianca Knight [...] to follow, Submitted by: Bianca Knight, ElizabethD, [facility] 11/08/2024 11:15 AM * Progress Notes - Melecio Echevarria DO - 11/08/2024 7:18 AM EDT Images from the original note were not included. [facility] Department of Surgery Division of Vascular Surgery Surgery Progress Note 11/08/24 Bev Borja Subjective Subjective: HPI 64yoM PMHx COPD, T2DM, HLD, HTN, RLS, CAD s/p PCI (on Xarelto) s/p pacemaker c/b left SANDIP pseudoaneurysm s/p thrombin injection 09/21/24, CLI s/p left femoral endarterectomy with EIA/LIQUOR INSPECTOR stenting 10/17/24, who [facility] [...] completed 10/19 Pseudoaneurysm of left femoral artery ([facility]) COPD (chronic obstructive pulmonary disease) ([facility]) Overview Signed 10/18/2021 7:30 PM by Gallo Gallardo MD Not on home inhalers A-fib ([facility]) Overview Addendum 10/19/2021 10:39 AM by Giovanna Junior APRN Hold anticoagulation Metoprolol restarted BPH (benign prostatic hyperplasia) Overview Addendum 10/19/2021 10:41 AM by Giovanna Junior APRN Flomax restarted Subarachnoid hemorrhage ([facility]) Overview Addendum 10/20/2021 8:23 AM by Giovanna Junior APRN Left frontal, right occipital NSGY consulted - Repeat CTH showing slight worsening of tSAH - no need for further imaging, will continue to follow clinically 10/20: spoke with NSGY via phone and stated to hold ASA and Xarelto for 2 weeks Closed compression fracture of L3 lumbar vertebra, initial encounter ([facility]) Overview Signed 10/18/2021 7:35 PM [...] 09/21/24, CLI s/p left femoral endarterectomy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 99 mg/dL 11/12/2024 8:29 PM EDT [facility] Comment:Accuracy of a glucos e result [...] 11/12/2024 8:29 PM EDT [facility] Furnace Mechan[employer]per ID Nelda Gerber 11/13/19 8:29 PM EDT [facility] LAB Device ID [id number] 11/12/2024 8:29 PM EDT [facility] Specimen Type POC Capillary 11/12/2024 8:29 PM EDT [facility] Blood Capillary blood specimen / Unknown 11/12/2024 8:27 PM EDT 11/12/2024 8:29 PM EDT Nathaly Nowak MD LAB POINT OF CARE TE ST DOCKED DEVICE UNSOLICITED RESULTS Final Result Performing Organization Address City/[facility]/ZIP Co de Phone Number [facility] [address] [place] [address] * (ABNORMAL) POCT glucose meter (11/12/2024 5:08 PM EDT) [facility] POCT Glucose 157(H) 74 - 99 [...] 11/12/2024 5:10 PM EDT [facility] Furnace Mechanic Helper ID Wade Feliciano 5:10 PM EDT [facility] LAB Device ID [id number] 11/12/2024 5:10 PM EDT [facility] Specimen Type POC Capillary 11/12/2024 5:10 PM EDT [facility] Blood Capillary blood specimen / Unknown 11/12/2024 5:08 PM EDT 11/12/2024 5:10 PM EDT Nathaly Nowak MD LAB POINT OF CARE TE ST DOCKED DEVICE UNSOLICITED RESULTS Final Result Performing Organization Address City/[facility]/ZIP Co de Phone Number [facility] [address] [place] [address] * (ABNORMAL) POCT glucose meter (11/12/2024 12:36 PM EDT) [facility] POCT Glucose 224(H) 74 - 99 [...] Comment 11/12/2024 12:38 PM EDT [facility] Furnace Mechanic Helper ID Wade Feliciano 12:38 PM EDT [facility] LAB Device ID [id number] 11/12/2024 12:38 PM EDT [facility] Specimen Type POC Capillary 11/12/2024 12:38 PM EDT [facility] Blood Capillary blood specimen / Unknown 11/12/2024 12:36 PM EDT 11/12/2024 12:38 PM EDT Nathaly Nowak MD LAB POINT OF CARE TE ST DOCKED DEVICE UNSOLICITED RESULTS Final Result [facility] [address] [place] [address] * Clostridiodes (Clostridium) difficile PCR (11/12/2024 9:50 AM EDT) C difficile PCR toxin B gene DNA Result Not Detected Not Detected 11/12/2024 11:54 AM EDT [facility] Stool Rectum structure / Unknown Non-blood Collection / Unknown 11/12/2024 9:50 AM EDT 11/12/2024 10:04 AM EDT Narrative [facility] - 11/12/2024 11:54 AM EDT [...] Nathaly Nowak MD LAB [facility] [place] [facility] Final Result [facility] [address] [place] [address] * Comprehensive GI Panel by PCR (11/12/2024 9:50 AM EDT) Campylobacter PCR Result Not Detected Not Detected 11/12/2024 2:47 PM EDT [facility] Plesiomonas shigelloides PCR Result Not Detected Not Detected 11/12/2024 2:47 PM EDT [facility] Salmonella PCR Result Not Detected Not Detected 11/12/2024 2:47 PM EDT [facility] Vibrio species PCR Result Not Detected Not Detected 11/12/2024 2:47 PM EDT [facility] Vibrio cholerae PCR Result Not Detected Not Detected 11/12/2024 2:47 PM EDT [facility] Yersinia enterocolitica PCR Result Not Detected Not Detected 11/12/2024 2:47 PM EDT [facility] Enteroaggregative E. coli (EAEC) PCR Result Not Detected Not Detected 11/12/2024 2:47 PM EDT [facility] Enteropathogenic E. coli (EPEC) PCR Result Not Detected Not Detected 11/12/2024 2:47 PM EDT [facility] Enterotoxigenic E. coli (ETEC) lt/st PCR Result Not Detected Not Detected 11/12/2024 2:47 PM EDT [facility] Shiga-like Toxin-Producing E.coli (STEC) stx1/stx2 PCR Resu Not Detected Not Detected 11/12/2024 2:47 PM EDT [facility] E coli 0157 PCR Result Not Detected Not Detected 11/12/2024 2:47 PM EDT [facility] Shigella/Enteroinvas tam E. coli (EIEC) PCR Result Not Detected Not Detected 11/12/2024 2:47 PM EDT [facility] Cryptosporidium PCR Result Not Detected Not Detected 11/12/2024 2:47 PM EDT [facility] Cyclospora cayetanensis PCR Result Not Detected Not Detected 11/12/2024 2:47 PM EDT [facility] Entamoeba histolytica PCR Result Not Detected Not Detected 11/12/2024 2:47 PM EDT [facility] Giardia duodenalis (aka Giardia lamblia) PCR Result Not Detected Not Detected 11/12/2024 2:47 PM EDT [facility] Adenovirus F 40/41 PCR Result Not Detected Not Detected 11/12/2024 2:47 PM EDT [facility] Astrovirus PCR Result Not Detected Not Detected 11/12/2024 2:47 PM EDT [facility] Norovirus GI/GII PCR Result Not Detected Not Detected 11/12/2024 2:47 PM EDT [facility] Rotavirus A PCR Result Not Detected Not Detected 11/12/2024 2:47 PM EDT [facility] Sapovirus PCR Result Not Detected Not Detected 11/12/2024 2:47 PM EDT [facility] Stool Rectum structure / Unknown Non-blood Collection / Unknown 11/12/2024 9:50 AM EDT 11/12/2024 10:04 AM EDT Narrative [facility] - 11/12/2024 2:47 PM EDT [...] MICROBIOLOGY - GENERAL [place] Final Result [facility] [address] [place] [address] * C-reactive protein (11/12/2024 9:48 AM EDT) CRP, Plasma <3.0 <=8.0 mg/L 11/12/2024 10:28 AM EDT [facility] Blood Venous blood specimen / Unknown Venipuncture / Unknown 11/12/2024 9:48 AM EDT 11/12/2024 9:59 AM EDT Narrative [facility] - 11/12/2024 10:28 AM EDT This CRP test is appropriate for assessment of infection, systemic inflammation and/or tissue injury. To assess cardiovascular disease risk order high sensitivity CRP (CRPH). us Nathaly Nowak MD LAB BLOOD ORDERABLES Final Resu lt Performing Organization Address City/[facility]/ZIP Co de Phone Number [facility] [address] [place] [address] * (ABNORMAL) POCT glucose meter (11/12/2024 8:20 AM EDT) POCT Glucose 138(H) 74 - 99 mg/dL [...] Comment 11/12/2024 8:21 AM EDT [facility] Furnace Mechanic Helper ID Wade Feliciano 8:21 AM EDT [facility] LAB Device ID [id number] 11/12/2024 8:21 AM EDT [facility] Specimen Type POC Capillary 11/12/2024 8:21 AM EDT [facility] Blood Capillary blood specimen / Unknown 11/12/2024 8:20 AM EDT 11/12/2024 8:21 AM EDT us Nathaly Nowak MD LAB POINT OF CARE TE ST DOCKED DEVICE UNSOLICITED RESULTS Final Result Performing Organization Address City/[facility]/ZIP Co de Phone Number [facility] [address] [place] [address] * (ABNORMAL) POCT glucose meter (11/11/2024 8:18 PM EDT) [facility] POCT Glucose 248(H) 74 - 99 [...] Comment 11/11/2024 8:20 PM EDT [facility] Furnace Mechanic Helper ID Nelda Gerber 11/12/19 8:20 PM EDT [facility]ALTH[facility]ARE LAB Device ID [id number] 11/11/2024 8:20 PM EDT [facility] Specimen Type POC Capillary 11/11/2024 8:20 PM EDT [facility] Blood Capillary blood specimen / Unknown 11/11/2024 8:18 PM EDT 11/11/2024 8:20 PM EDT Nathaly Nowak MD LAB POINT OF CARE TE ST DOCKED DEVICE UNSOLICITED RESULTS Final Result Performing Organization Address City/State/[facility] Co de Phone Number [facility] [address] [place] [address] * (ABNORMAL) POCT glucose meter (11/11/2024 5:59 PM EDT) [facility] POCT Glucose 147(H) 74 - 99 mg/dL [...] Comment 11/11/2024 6:01 PM EDT [facility] Furnace Mechanic Helper ID Wade Feliciano 6:01 PM EDT [facility] LAB Device ID [id number] 11/11/2024 6:01 PM EDT [facility] Specimen Type POC Capillary 11/11/2024 6:01 PM EDT [facility] Blood Capillary blood specimen / Unknown 11/11/2024 5:59 PM EDT 11/11/2024 6:01 PM EDT Nathaly Nowak MD LAB POINT OF CARE TE ST DOCKED DEVICE UNSOLICITED RESULTS Final Result Performing Organization Address [facility] de Phone Number [facility] [address] [place] [address] * POCT glucose meter (11/11/2024 5:20 PM EDT) [facility] POCT Glucose 84 74 - 99 [...] 11/11/2024 5:22 PM EDT [facility] Furnace Mechanic Helper ID Wade Feliciano 5:22 PM EDT [facility] Device ID [id number] 11/11/2024 5:22 PM EDT [facility] Specimen Type POC Capillary 11/11/2024 5:22 PM EDT [facility] Blood Capillary blood specimen / Unknown 11/11/2024 5:20 PM EDT 11/11/2024 5:22 PM EDT Nathaly Nowak MD LAB POINT OF CARE TE ST DOCKED DEVICE UNSOLICITED RESULTS Final Result Performing Organization Address City/[facility] Co de Phone Number [facility] [address] [place] [address] * [place] NEGATIVE PRESSURE WOUND THERAPY DME >50 SQ [...] Comment 11/11/2024 12:10 PM EDT [facility] Furnace Mechanic Helper ID Braden Wade Tobias 12:10 PM EDT [facility] LAB Device ID [id number] 11/11/2024 12:10 PM EDT [facility] Specimen Type POC Capillary 11/11/2024 12:10 PM EDT [facility] Blood Capillary blood specimen / Unknown 11/11/2024 12:08 PM EDT 11/11/2024 12:10 PM EDT Nathaly Nowak MD LAB POINT OF CARE TE ST DOCKED DEVICE UNSOLICITED RESULTS Final Result [facility] [address] [place] [address] * (ABNORMAL) POCT glucose meter (11/11/2024 9:08 [...] Comment 11/11/2024 9:09 AM EDT [facility] Furnace Mechanic Helper ID Wade Feliciano 9:09 AM EDT [facility] LAB Device ID [id number] 11/11/2024 9:09 AM EDT [facility] Specimen Type POC Capillary 11/11/2024 9:09 AM EDT [facility] Blood Capillary blood specimen / Unknown 11/11/2024 9:08 AM EDT 11/11/2024 9:09 AM EDT Nathaly Nowak MD LAB POINT OF CARE TE ST DOCKED DEVICE UNSOLICITED RESULTS Final Result Performing Organization Address City/State/[facility] Co de Phone Number [facility] [address] [place] [address] * POCT glucose meter (11/11/2024 8:27 AM EDT) [facility] POCT Glucose 87 74 - 99 mg/dL [...] Comment 11/11/2024 8:28 AM EDT [facility] Furnace Mechanic Helper ID Wade Feliciano 8:28 AM EDT [facility] LAB Device ID [id number] 11/11/2024 8:28 AM EDT [facility] Specimen Type POC Capillary 11/11/2024 8:28 AM EDT [facility] Blood Capillary blood specimen / Unknown 11/11/2024 8:27 AM EDT 11/11/2024 8:28 AM EDT us Nathaly Nowak MD LAB POINT OF CARE TE ST DOCKED DEVICE UNSOLICITED RESULTS Final Result [facility] [address] [place] [address] * (ABNORMAL) Basic Metabolic Panel, Plasma (11/11/2024 1:12 AM EDT) Glucose, Plasma 122(H) 74 - 99 mg/dL 11/11/2024 1:12 AM EDT [facility] BUN, Plasma 10 8 - 23 mg/dL 11/11/2024 1:12 AM EDT [facility] Creatinine, Plasma 0.82 0.70 - 1.20 mg/dL 11/11/2024 1:12 AM EDT [facility] BUN/Creatinine Ratio 12 11/11/2024 1:12 AM EDT [facility] Sodium, Plasma 137 136 - 145 mmol/L 11/11/2024 1:12 AM EDT [facility] Potassium, Plasma 3.9 3.6 - 4.9 mmol/L 11/11/2024 1:12 AM EDT [facility] Chloride, Plasma 110(H) 97 - 107 mmol/L 11/11/2024 1:12 AM EDT [facility] CO2, Plasma 20(L) 22 - 29 mmol/L 11/11/2024 1:12 AM EDT [facility] Anion Gap 7 6 - 16 mmol/L 11/11/2024 1:12 AM EDT [facility] Total Calcium, Plasma 7.6(L) 8.9 - 10.2 mg/dL 11/11/2024 1:12 AM EDT [facility] eGFRcr 97.5 mL/min/1.7 3m*2 11/11/2024 1:12 AM EDT [facility] Comment:Reported eGFRcr in m L/min/1.73m2 is based the CKD-EPI 2020 equation that does not use a race coefficient. Blood Venous blood specimen / Unknown 11/11/2024 12:42 AM EDT us Nathaly Nowak MD LAB BLOOD ORDERABLES Final Resu lt [facility] [address] [place] [address] * (ABNORMAL) CBC W/O Differential (11/11/2024 12:56 AM EDT) WBC Count 11.83(H) 3.70 - 10.30 10*3/uL LAB HEMATOLOGY METHOD 11/11/2024 12:56 AM EDT [facility] RBC Count 2.97(L) 4.60 - 6.10 10*6/uL LAB HEMATOLOGY METHOD 11/11/2024 12:56 AM EDT [facility] HGB 8.9(L) 13.7 - 17.5 g/dL LAB HEMATOLOGY METHOD 11/11/2024 12:56 AM EDT [facility] HCT 27.2(L) 40.0 - 51.0 % LAB HEMATOLOGY METHOD 11/11/2024 12:56 AM EDT [facility] Platelet Count 444(H) 155 - 369 10*3/uL LAB HEMATOLOGY METHOD 11/11/2024 12:56 AM EDT [facility] MCV 92 79 - 98 fL LAB HEMATOLOGY METHOD 11/11/2024 12:56 AM EDT [facility] MCH 30.0 26.0 - 32.0 pg LAB HEMATOLOGY METHOD 11/11/2024 12:56 AM EDT [facility] MCHC 32.7 30.7 - 35.5 g/dL LAB HEMATOLOGY METHOD 11/11/2024 12:56 AM EDT [facility] RDW 13.3 11.5 - 14.5 % LAB HEMATOLOGY METHOD 11/11/2024 12:56 AM EDT [facility] MPV 9.0 8.8 - 12.5 fL LAB HEMATOLOGY METHOD 11/11/2024 12:56 AM EDT [facility] nRBC 0.0 <=0.0 per 100 WBCs LAB HEMATOLOGY METHOD 11/11/2024 12:56 AM EDT [facility] Blood Venous blood specimen / Unknown 11/11/2024 12:42 AM EDT us Nathaly Nowak MD LAB BLOOD ORDERABLES Final Resu lt Performing Organization Address City/[facility]/ZIP Co de Phone Number [facility] [address] [place] [address] * (ABNORMAL) POCT glucose meter (11/10/2024 8:25 [...] for testing. Comment 11/10/2024 8:28 PM EDT [facility] Furnace Mechanic Helper ID Nelda Gerber 11/11/19 8:28 PM EDT [facility] Device ID [id number] 11/10/2024 8:28 PM EDT [facility] Specimen Type POC Capillary 11/10/2024 8:28 PM EDT [facility] Blood Capillary blood specimen / Unknown 11/10/2024 8:25 PM EDT 11/10/2024 8:28 PM EDT Nathaly Nowak MD LAB POINT OF CARE TE ST DOCKED DEVICE UNSOLICITED RESULTS Final Result Performing Organization Address [facility] Co de Phone Number [facility] [address] [place] [address] * (ABNORMAL) POCT glucose meter (11/10/2024 4:45 [...] Comment 11/10/2024 4:47 PM EDT [facility] Furnace Mechanic Helper ID Esperanza Parks 11/10/2024 4:47 PM EDT [facility] LAB Device ID [id number] 11/10/2024 4:47 PM EDT [facility] Specimen Type POC Capillary 11/10/2024 4:47 PM EDT [facility] Blood Capillary blood specimen / Unknown 11/10/2024 4:45 PM EDT 11/10/2024 4:47 PM EDT Nathaly Nowak MD LAB POINT OF CARE TE ST DOCKED DEVICE UNSOLICITED RESULTS Final Result Performing Organization Address [facility] Co de Phone Number [facility] [address] [place] [address] * (ABNORMAL) POCT glucose meter (11/10/2024 12:13 PM EDT) [facility] POCT Glucose 131(H) 74 - 99 [...] Comment 11/10/2024 12:14 PM EDT [facility] Furnace Mechanic Helper ID Esperanza Parks 11/10/2024 12:14 PM EDT [facility] LAB Device ID [id number] 11/10/2024 12:14 PM EDT [facility] Specimen Type POC Capillary 11/10/2024 12:14 PM EDT [facility] Blood Capillary blood specimen / Unknown 11/10/2024 12:13 PM EDT 11/10/2024 12:14 PM EDT Nathaly Nowak MD LAB POINT OF CARE TE ST DOCKED DEVICE UNSOLICITED RESULTS Final Result Performing Organization Address [facility] Co de Phone Number [facility] [address] [place] [address] * Vancomycin, Peak, Plasma Please draw ~2 hours after 0800 dose of vancomycin finishes infusing. Consider obtaining level via peripheral stick. If peripheral stick is not feasible, please ensure that line is flushed well prior to drawing level. Than... (11/10/2024 10:56 AM EDT) [facility] Vancomycin, Peak, Plasma 23.8 20.0 - 40.0 ug/mL 11/10/2024 11:25 AM EDT [facility] Blood Venous blood specimen / Unknown Venipuncture / Unknown 11/10/2024 10:56 AM EDT 11/10/2024 11:00 AM EDT Narrative [facility] - 11/10/2024 11:25 AM EDT Therapeutic Peak level: 20-40ug/mL Supra-therapeutic Peak level: >40 ug/mL us Abigail Seay MD LAB BLOOD ORDERABLES Final Res ult [facility] [address] [place] [address] * (ABNORMAL) POCT glucose meter (11/10/2024 8:03 AM EDT) [facility] POCT Glucose 174(H) 74 - 99 mg/dL [...] Comment 11/10/2024 8:04 AM EDT [facility] Furnace Mechanic Helper ID Esperanza Parks 11/10/2024 8:04 AM EDT [facility] LAB Device ID [id number] 11/10/2024 8:04 AM EDT [facility] Specimen Type POC Capillary 11/10/2024 8:04 AM EDT [facility] Blood Capillary blood specimen / Unknown 11/10/2024 8:03 AM EDT 11/10/2024 8:04 AM EDT us Nathaly Nowak MD LAB POINT OF CARE TE ST DOCKED DEVICE UNSOLICITED RESULTS Final Result Performing Organization Address [facility]/ZIP Co de Phone Number [facility] [address] [place] [address] * Vancomycin, Trough, Plasma Please draw ~30 minutes prior to dose due at 0800 on 11/10. Please do NOThold dose awaiting level to return. Consider obtaining level via peripheral stick. If peripheral stick is not feasible, please ensure that line is... (11/10/2024 7:27 AM EDT) Vancomycin, Trough, Plasma 16.2 10.0 - 20.0 ug/mL 11/10/2024 8:24 AM EDT [facility] Blood Venous blood specimen / Unknown Venipuncture / Unknown 11/10/2024 7:27 AM EDT 11/10/2024 7:51 AM EDT Narrative [facility] - 11/10/2024 8:24 AM EDT Therapeutic Trough level: 10-20ug/mL Supra-therapeutic Trough level: >20 ug/mL us Abigail Seay MD LAB BLOOD ORDERABLES Final Res ult Performing Organization Address [facility] Co de Phone Number [facility] [address] [place] [address] * (ABNORMAL) CBC and Differential (11/10/2024 12:31 AM EDT) WBC Count 10.80(H) 3.70 - 10.30 10*3/uL LAB HEMATOLOGY METHOD 11/10/2024 12:53 AM EDT [facility] RBC Count 3.06(L) 4.60 - 6.10 10*6/uL LAB HEMATOLOGY METHOD 11/10/2024 12:53 AM EDT [facility] HGB 9.1(L) 13.7 - 17.5 g/dL LAB HEMATOLOGY METHOD 11/10/2024 12:53 AM EDT [facility] HCT 28.0(L) 40.0 - 51.0 % LAB HEMATOLOGY METHOD 11/10/2024 12:53 AM EDT [facility] Platelet Count 501(H) 155 - 369 10*3/uL LAB HEMATOLOGY METHOD 11/10/2024 12:53 AM EDT [facility] MCV 92 79 - 98 fL LAB HEMATOLOGY METHOD 11/10/2024 12:53 AM EDT [facility] MCH 29.7 26.0 - 32.0 pg LAB HEMATOLOGY METHOD 11/10/2024 12:53 AM EDT [facility] MCHC 32.5 30.7 - 35.5 g/dL LAB HEMATOLOGY METHOD 11/10/2024 12:53 AM EDT [facility] RDW 13.2 11.5 - 14.5 % LAB HEMATOLOGY METHOD 11/10/2024 12:53 AM EDT [facility] MPV 8.8 8.8 - 12.5 fL LAB HEMATOLOGY METHOD 11/10/2024 12:53 AM EDT [facility] nRBC 0.0 <=0.0 per 100 WBCs LAB HEMATOLOGY METHOD 11/10/2024 12:53 AM EDT [facility] Differential Type Automated LAB HEMATOLOGY METHOD 11/10/2024 12:53 AM EDT [facility] Neutrophils % 77 % LAB HEMATOLOGY METHOD 11/10/2024 12:53 AM EDT [facility] Lymphocytes % 13 % LAB HEMATOLOGY METHOD 11/10/2024 12:53 AM EDT [facility] Monocytes % 8 % LAB HEMATOLOGY METHOD 11/10/2024 12:53 AM EDT [facility] Eosinophils % 1 % LAB HEMATOLOGY METHOD 11/10/2024 12:53 AM EDT [facility] Basophils % 0 % LAB HEMATOLOGY METHOD 11/10/2024 12:53 AM EDT [facility] Immature Granulocytes % 1 % LAB HEMATOLOGY METHOD 11/10/2024 12:53 AM EDT [facility] Neutrophils Absolute 8.32(H) 1.60 - 6.10 10*3/uL LAB HEMATOLOGY METHOD 11/10/2024 12:53 AM EDT [facility] Lymphocytes Absolute 1.40 1.20 - 3.90 10*3/uL LAB HEMATOLOGY METHOD 11/10/2024 12:53 AM EDT [facility] Monocytes Absolute 0.89 0.30 - 0.90 10*3/uL LAB HEMATOLOGY METHOD 11/10/2024 12:53 AM EDT [facility] Eosinophils Absolute 0.09 0.00 - 0.50 10*3/uL LAB HEMATOLOGY METHOD 11/10/2024 12:53 AM EDT [facility] Basophils Absolute 0.04 0.00 - 0.10 10*3/uL LAB HEMATOLOGY METHOD 11/10/2024 12:53 AM EDT [facility] Immature Granulocytes Absolute 0.06 0.00 - 0.06 10*3/uL LAB HEMATOLOGY METHOD 11/10/2024 12:53 AM EDT [facility] Blood Venous blood specimen / Unknown Venipuncture / Unknown 11/10/2024 12:31 AM EDT 11/10/2024 12:37 AM EDT Narrative [facility] - 11/10/2024 12:53 AM EDT Therapeutic decision making should be based on absolute values, rather than percentages. us Nathaly Nowak MD LAB BLOOD ORDERABLES Final Resu lt [facility] [address] [place] [address] * (ABNORMAL) Comprehensive Metabolic Panel, Plasma (11/10/2024 12:31 AM EDT) Glucose, Plasma 185(H) 74 - 99 mg/dL 11/10/2024 1:05 AM EDT [facility] BUN, Plasma 9 8 - 23 mg/dL 11/10/2024 1:05 AM EDT [facility] Creatinine, Plasma 0.72 0.70 - 1.20 mg/dL 11/10/2024 1:05 AM EDT [facility] BUN/Creatinine Ratio 13 11/10/2024 1:05 AM EDT [facility] Sodium, Plasma 135(L) 136 - 145 mmol/L 11/10/2024 1:05 AM EDT [facility] Potassium, Plasma 4.0 3.6 - 4.9 mmol/L 11/10/2024 1:05 AM EDT [facility] Chloride, Plasma 106 97 - 107 mmol/L 11/10/2024 1:05 AM EDT [facility] CO2, Plasma 19(L) 22 - 29 mmol/L 11/10/2024 1:05 AM EDT [facility] Anion Gap 10 6 - 16 mmol/L 11/10/2024 1:05 AM EDT [facility] Total Calcium, Plasma 7.8(L) 8.9 - 10.2 mg/dL 11/10/2024 1:05 AM EDT [facility] Total Protein 5.6(L) 6.3 - 7.9 g/dL 11/10/2024 1:05 AM EDT [facility] Albumin, Plasma 3.1(L) 3.5 - 5.2 g/dL 11/10/2024 1:05 AM EDT [facility] AST, Plasma 33 10 - 50 U/L 11/10/2024 1:05 AM EDT [facility] ALT, Plasma 25 10 - 50 U/L 11/10/2024 1:05 AM EDT [facility] Alkaline Phosphatase, Plasma 108 40 - 115 U/L 11/10/2024 1:05 AM EDT [facility] Total Bilirubin, Plasma <0.2(L) 0.2 - 1.1 mg/dL 11/10/2024 1:05 AM EDT [facility] eGFRcr 101.4 mL/min/1.7 3m*2 11/10/2024 1:05 AM EDT [facility] Comment:Reported eGFRcr in m L/min/1.73m2 is based the CKD-EPI 2020 equation that does not use a race coefficient. Blood Venous blood specimen / Unknown Venipuncture / Unknown 11/10/2024 12:31 AM EDT 11/10/2024 12:37 AM EDT us Nathaly Nowak MD LAB BLOOD ORDERABLES Final Resu lt [facility] [address] [place] [address] * (ABNORMAL) POCT glucose meter (11/09/2024 8:04 [...] Comment 11/09/2024 8:06 PM EDT [facility] Furnace [employer]per ID Maximiliano Hansen II 11/09/2024 8:06 PM EDT [facility] LAB Device ID [id number] 11/09/2024 8:06 PM EDT [facility] Specimen Type POC Capillary 11/09/2024 8:06 PM EDT [facility] Blood Capillary blood specimen / Unknown 11/09/2024 8:04 PM EDT 11/09/2024 8:06 PM EDT Nathaly Nowak MD LAB POINT OF CARE TE ST DOCKED DEVICE UNSOLICITED RESULTS Final Result Performing Organization Address City/State/[facility] Co de Phone Number [facility]ARE [facility] [address] [place] [address] * (ABNORMAL) POCT glucose meter (11/09/2024 4:36 PM EDT) [facility] POCT Glucose 166(H) 74 - 99 mg/dL 11/09/2024 4:38 PM EDT [facility] Comment:Accuracy of a [...] Comment 11/09/2024 4:38 PM EDT [facility] Furnace Mechanic Helper ID Kristian Sosa 11/09/2024 4:38 PM EDT [facility]ARE LAB Device ID [id number] 11/09/2024 4:38 PM EDT [facility] Specimen Type POC Capillary 11/09/2024 4:38 PM EDT [facility] Blood Capillary blood specimen / Unknown 11/09/2024 4:36 PM EDT 11/09/2024 4:38 PM EDT Nathaly Nowak MD LAB POINT OF CARE TE ST DOCKED DEVICE UNSOLICITED RESULTS Final Result [facility] [address] [place] [address] * PICC SINGLE LUMEN ([employer]) (11/09/2024 1:11 PM EDT) Narrative Estefani Barraza RN - 11/09/2024 1:11 PM EDT Estefani Barraza RN 11/09/2024 1:12 PM Insert PICC line Date/Time: 11/09/2024 1:11 PM Performed by: Estefani Barraza RN Authorized by: Nathaly Nowak MD [place] Protocol: Verbal consent obtained?: Yes Written consent [...] selection rationale: Left pacemaker Catheter Lot #: [id number] Catheter respiratory therapist: Bard Catheter placed: Single lumen Catheter [...] POCT glucose meter (11/09/2024 11:50 AM EDT) [facility] POCT Glucose 127(H) 74 - 99 mg/dL [...] 11/09/2024 11:51 AM EDT [facility] Furnace Mechan[employer] Helper ID Kristian Sosa 11/09/2024 11:51 AM EDT [facility] Device ID [id number] 11/09/2024 11:51 AM EDT [facility]ALTH[facility]ARE LAB Specimen Type POC Capillary 11/09/2024 11:51 AM EDT [facility] Blood Capillary blood specimen / Unknown 11/09/2024 11:50 AM EDT 11/09/2024 11:51 AM EDT Nathaly Nowak MD LAB POINT OF CARE TE ST DOCKED DEVICE UNSOLICITED RESULTS Final Result [facility] [address] [place] [address] * (ABNORMAL) POCT glucose meter (11/09/2024 8:14 AM EDT) [facility] POCT [...] for testing. Comment 11/09/2024 8:15 AM EDT [facility] Furnace Mechanic Helper Kristian Greco 11/09/2024 8:15 AM EDT [facility] Device ID [id number] 11/09/2024 8:15 AM EDT [facility] Specimen Type POC Capillary 11/09/2024 8:15 AM EDT [facility] Blood Capillary blood specimen / Unknown 11/09/2024 8:14 AM EDT 11/09/2024 8:15 AM EDT us Nathaly Nowak MD LAB POINT OF CARE TE ST DOCKED DEVICE UNSOLICITED RESULTS Final Result [facility] [address] [place] [address] * (ABNORMAL) CBC and Differential (11/09/2024 4:15 AM EDT) WBC Count 10.27 3.70 - 10.30 10*3/uL LAB HEMATOLOGY METHOD 11/09/2024 4:26 AM EDT [facility] RBC Count 3.14(L) 4.60 - 6.10 10*6/uL LAB HEMATOLOGY METHOD 11/09/2024 4:26 AM EDT [facility] HGB 9.2(L) 13.7 - 17.5 g/dL LAB HEMATOLOGY METHOD 11/09/2024 4:26 AM EDT [facility] HCT 28.3(L) 40.0 - 51.0 % LAB HEMATOLOGY METHOD 11/09/2024 4:26 AM EDT [facility] Platelet Count 468(H) 155 - 369 10*3/uL LAB HEMATOLOGY METHOD 11/09/2024 4:26 AM EDT [facility] MCV 90 79 - 98 fL LAB HEMATOLOGY METHOD 11/09/2024 4:26 AM EDT [facility] MCH 29.3 26.0 - 32.0 pg LAB HEMATOLOGY METHOD 11/09/2024 4:26 AM EDT [facility] MCHC 32.5 30.7 - 35.5 g/dL LAB HEMATOLOGY METHOD 11/09/2024 4:26 AM EDT [facility] RDW 13.1 11.5 - 14.5 % LAB HEMATOLOGY METHOD 11/09/2024 4:26 AM EDT [facility] MPV 8.7(L) 8.8 - 12.5 fL LAB HEMATOLOGY METHOD 11/09/2024 4:26 AM EDT [facility] nRBC 0.0 <=0.0 per 100 WBCs LAB HEMATOLOGY METHOD 11/09/2024 4:26 AM EDT [facility] Differential Type Automated LAB HEMATOLOGY METHOD 11/09/2024 4:26 AM EDT [facility] Neutrophils % 77 % LAB HEMATOLOGY METHOD 11/09/2024 4:26 AM EDT [facility] Lymphocytes % 13 % LAB HEMATOLOGY METHOD 11/09/2024 4:26 AM EDT [facility] Monocytes % 8 % LAB HEMATOLOGY METHOD 11/09/2024 4:26 AM EDT [facility] Eosinophils % 1 % LAB HEMATOLOGY METHOD 11/09/2024 4:26 AM EDT [facility] Basophils % 0 % LAB HEMATOLOGY METHOD 11/09/2024 4:26 AM EDT [facility] Immature Granulocytes % 1 % LAB HEMATOLOGY METHOD 11/09/2024 4:26 AM EDT [facility] Neutrophils Absolute 7.97(H) 1.60 - 6.10 10*3/uL LAB HEMATOLOGY METHOD 11/09/2024 4:26 AM EDT [facility] Lymphocytes Absolute 1.32 1.20 - 3.90 10*3/uL LAB HEMATOLOGY METHOD 11/09/2024 4:26 AM EDT [facility] Monocytes Absolute 0.83 0.30 - 0.90 10*3/uL LAB HEMATOLOGY METHOD 11/09/2024 4:26 AM EDT [facility] Eosinophils Absolute 0.07 0.00 - 0.50 10*3/uL LAB HEMATOLOGY METHOD 11/09/2024 4:26 AM EDT [facility] Basophils Absolute 0.03 0.00 - 0.10 10*3/uL LAB HEMATOLOGY METHOD 11/09/2024 4:26 AM EDT [facility] Immature Granulocytes Absolute 0.05 0.00 - 0.06 10*3/uL LAB HEMATOLOGY METHOD 11/09/2024 4:26 AM EDT [facility] Blood Venous blood specimen / Unknown Venipuncture / Unknown 11/09/2024 4:15 AM EDT 11/09/2024 4:18 AM [facility]T [facility] 11/09/2024 4:26 AM EDT Therapeutic decision making should be based on absolute values, rather than percentages. us Nathaly Nowak MD LAB BLOOD ORDERABLES Final Resu lt [facility] [address] [place] [address] * (ABNORMAL) Comprehensive Metabolic Panel, Plasma (11/09/2024 4:15 AM EDT) Glucose, Plasma 171(H) 74 - 99 mg/dL 11/09/2024 4:47 AM EDT [facility] BUN, Plasma 9 8 - 23 mg/dL 11/09/2024 4:47 AM EDT [facility] Creatinine, Plasma 0.67(L) 0.70 - 1.20 mg/dL 11/09/2024 4:47 AM EDT [facility] BUN/Creatinine Ratio 13 11/09/2024 4:47 AM EDT [facility] Sodium, Plasma 134(L) 136 - 145 mmol/L 11/09/2024 4:47 AM EDT [facility] Potassium, Plasma 4.1 3.6 - 4.9 mmol/L 11/09/2024 4:47 AM EDT [facility] Chloride, Plasma 104 97 - 107 mmol/L 11/09/2024 4:47 AM EDT [facility] CO2, Plasma 21(L) 22 - 29 mmol/L 11/09/2024 4:47 AM EDT [facility] Anion Gap 9 6 - 16 mmol/L 11/09/2024 4:47 AM EDT [facility] Total Calcium, Plasma 8.4(L) 8.9 - 10.2 mg/dL 11/09/2024 4:47 AM EDT [facility] Total Protein 5.8(L) 6.3 - 7.9 g/dL 11/09/2024 4:47 AM EDT [facility] Albumin, Plasma 3.2(L) 3.5 - 5.2 g/dL 11/09/2024 4:47 AM EDT [facility] AST, Plasma 18 10 - 50 U/L 11/09/2024 4:47 AM EDT [facility] ALT, Plasma 17 10 - 50 U/L 11/09/2024 4:47 AM EDT [facility] Alkaline Phosphatase, Plasma 110 40 - 115 U/L 11/09/2024 4:47 AM EDT [facility] Total Bilirubin, Plasma <0.2(L) 0.2 - 1.1 mg/dL 11/09/2024 4:47 AM EDT [facility] eGFRcr 103.6 mL/min/1.7 3m*2 11/09/2024 4:47 AM EDT [facility] Comment:Reported eGFRcr in m L/min/1.73m2 is based the CKD-EPI 2020 equation that does not use a race coefficient. Blood Venous blood specimen / Unknown Venipuncture / Unknown 11/09/2024 4:15 AM EDT 11/09/2024 4:18 AM EDT us Nathaly Nowak MD LAB BLOOD ORDERABLES Final Resu lt [facility] [address] [place] [address] * (ABNORMAL) POCT glucose meter (11/09/2024 3:30 [...] Comment 11/09/2024 3:31 AM EDT [facility] Furnace Mechanic Helper ID Maximiliano Hansen II 11/09/2024 3:31 AM EDT [facility]ARE LAB Device ID [id number] 11/09/2024 3:31 AM EDT [facility] Specimen Type POC Capillary 11/09/2024 3:31 AM EDT [facility] Blood Capillary blood specimen / Unknown 11/09/2024 3:30 AM EDT 11/09/2024 3:31 AM EDT Nathaly Nowak MD LAB POINT OF CARE TE ST DOCKED DEVICE UNSOLICITED RESULTS Final Result Performing Organization Address City/[facility] Co de Phone Number [facility]ALTHCARE LAB [address] [place] [address] * (ABNORMAL) POCT glucose meter (11/08/2024 7:21 [...] for testing. Comment 11/08/2024 7:22 PM EDT [facility] Furnace Mechanic Helper ID Maximiliano Hansen II 11/08/2024 7:22 PM EDT HEALTH[facility]ARE LAB Device ID [id number] 11/08/2024 7:22 PM EDT [facility] Specimen Type POC Capillary 11/08/2024 7:22 PM EDT [facility] Blood Capillary blood specimen / Unknown 11/08/2024 7:21 PM EDT 11/08/2024 7:22 PM EDT Nathaly Nowak MD LAB POINT OF CARE TE ST DOCKED DEVICE UNSOLICITED RESULTS Final Result Performing Organization Address City/[facility] Co de Phone Number [facility] [address] [place] [address] * (ABNORMAL) POCT glucose meter (11/08/2024 5:12 PM EDT) Pathologist [facility] POCT Glucose 178(H) 74 - 99 mg/dL [...] Comment 11/08/2024 5:14 PM EDT [facility] Furnace Mechanic Helper ID Estefani Sheth 11/08/2024 5:14 PM EDT [facility] LAB Device ID [id number] 11/08/2024 5:14 PM EDT [facility] Specimen Type POC Capillary 11/08/2024 5:14 PM EDT [facility] Blood Capillary blood specimen / Unknown 11/08/2024 5:12 PM EDT 11/08/2024 5:14 PM EDT Nathaly Nowak MD LAB POINT OF CARE TE ST DOCKED DEVICE UNSOLICITED RESULTS Final Result Performing Organization Address City/[facility] Co de Phone Number [facility] [address] [place] [address] * (ABNORMAL) POCT glucose meter (11/08/2024 12:03 [...] Comment 11/08/2024 12:05 PM EDT [facility] Furnace Mechanic Helper ID Estefani Sheth 11/08/2024 12:05 PM EDT [facility]ARE LAB Device ID [id number] 11/08/2024 12:05 PM EDT [facility] Specimen Type POC Capillary 11/08/2024 12:05 PM EDT [facility] Blood Capillary blood specimen / Unknown 11/08/2024 12:03 PM EDT 11/08/2024 12:05 PM EDT us Nathaly Nowak MD LAB POINT OF CARE TE ST DOCKED DEVICE UNSOLICITED RESULTS Final Result Performing Organization Address City/[facility]/ZIP Co de Phone Number [facility]ARE [facility] [address] [place] [address] * Vancomycin, Peak, Plasma Please draw ~2 hours after 11/08 0600 dose of vancomycin finishes infusing.Consider obtaining level via peripheral stick. If peripheral stick is not feasible, please ensure that line is flushed well prior to drawing level.... (11/08/2024 9:24 AM EDT) [facility] Vancomycin, Peak, Plasma 29.1 20.0 - 40.0 ug/mL 11/08/2024 10:31 AM EDT [facility] Blood Venous blood specimen / Unknown Venipuncture / Unknown 11/08/2024 9:24 AM EDT 11/08/2024 9:47 AM EDT Narrative [facility] - 11/08/2024 10:31 AM EDT Therapeutic Peak level: 20-40ug/mL Supra-therapeutic Peak level: >40 ug/mL us Nathaly Nowak MD LAB BLOOD ORDERABLES Final Resu lt [facility] [address] [place] [address] * (ABNORMAL) POCT glucose meter (11/08/2024 8:00 AM EDT) [facility] POCT Glucose 150(H) 74 - 99 mg/dL [...] Comment 11/08/2024 8:01 AM EDT [facility]ALTH[facility] Furnace Mechanic Helper ID Estefani Sheth 11/08/2024 8:01 AM EDT HEALTH[facility]ARE LAB Device ID [id number] 11/08/2024 8:01 AM EDT [facility] Specimen Type POC Capillary 11/08/2024 8:01 AM EDT [facility] Blood Capillary blood specimen / Unknown 11/08/2024 8:00 AM EDT 11/08/2024 8:01 AM EDT us Nathaly Nowak MD LAB POINT OF CARE TE ST DOCKED DEVICE UNSOLICITED RESULTS Final Result [facility] [address] [place] [address] * (ABNORMAL) CBC and Differential (11/08/2024 4:39 AM EDT) WBC Count 9.18 3.70 - 10.30 10*3/uL LAB HEMATOLOGY METHOD 11/08/2024 4:58 AM EDT [facility] RBC Count 3.11(L) 4.60 - 6.10 10*6/uL LAB HEMATOLOGY METHOD 11/08/2024 4:58 AM EDT [facility] HGB 9.2(L) 13.7 - 17.5 g/dL LAB HEMATOLOGY METHOD 11/08/2024 4:58 AM EDT [facility] HCT 28.9(L) 40.0 - 51.0 % LAB HEMATOLOGY METHOD 11/08/2024 4:58 AM EDT [facility] Platelet Count 485(H) 155 - 369 10*3/uL LAB HEMATOLOGY METHOD 11/08/2024 4:58 AM EDT [facility] MCV 93 79 - 98 fL LAB HEMATOLOGY METHOD 11/08/2024 4:58 AM EDT [facility] MCH 29.6 26.0 - 32.0 pg LAB HEMATOLOGY METHOD 11/08/2024 4:58 AM EDT [facility] MCHC 31.8 30.7 - 35.5 g/dL LAB HEMATOLOGY METHOD 11/08/2024 4:58 AM EDT [facility] RDW 13.0 11.5 - 14.5 % LAB HEMATOLOGY METHOD 11/08/2024 4:58 AM EDT [facility] MPV 8.8 8.8 - 12.5 fL LAB HEMATOLOGY METHOD 11/08/2024 4:58 AM EDT [facility] nRBC 0.0 <=0.0 per 100 WBCs LAB HEMATOLOGY METHOD 11/08/2024 4:58 AM EDT [facility] Differential Type Automated LAB HEMATOLOGY METHOD 11/08/2024 4:58 AM EDT [facility] Neutrophils % 69 % LAB HEMATOLOGY METHOD 11/08/2024 4:58 AM EDT [facility] Lymphocytes % 17 % LAB HEMATOLOGY METHOD 11/08/2024 4:58 AM EDT [facility] Monocytes % 10 % LAB HEMATOLOGY METHOD 11/08/2024 4:58 AM EDT [facility] Eosinophils % 2 % LAB HEMATOLOGY METHOD 11/08/2024 4:58 AM EDT [facility] Basophils % 1 % LAB HEMATOLOGY METHOD 11/08/2024 4:58 AM EDT [facility] Immature Granulocytes % 1 % LAB HEMATOLOGY METHOD 11/08/2024 4:58 AM EDT [facility] Neutrophils Absolute 6.40(H) 1.60 - 6.10 10*3/uL LAB HEMATOLOGY METHOD 11/08/2024 4:58 AM EDT [facility] Lymphocytes Absolute 1.59 1.20 - 3.90 10*3/uL LAB HEMATOLOGY METHOD 11/08/2024 4:58 AM EDT [facility] Monocytes Absolute 0.87 0.30 - 0.90 10*3/uL LAB HEMATOLOGY METHOD 11/08/2024 4:58 AM EDT [facility] Eosinophils Absolute 0.22 0.00 - 0.50 10*3/uL LAB HEMATOLOGY METHOD 11/08/2024 4:58 AM EDT [facility] Basophils Absolute 0.05 0.00 - 0.10 10*3/uL LAB HEMATOLOGY METHOD 11/08/2024 4:58 AM EDT [facility] Immature Granulocytes Absolute 0.05 0.00 - 0.06 10*3/uL LAB HEMATOLOGY METHOD 11/08/2024 4:58 AM EDT [facility] Blood Venous blood specimen / Unknown Venipuncture / Unknown 11/08/2024 4:39 AM EDT 11/08/2024 4:49 AM EDT [facility] - 11/08/2024 4:58 AM EDT Therapeutic decision making should be based on absolute values, rather than percentages. us Nathaly Nowak MD LAB BLOOD ORDERABLES Final Resu lt [facility] [address] [place] [address] * (ABNORMAL) Comprehensive Metabolic Panel, Plasma (11/08/2024 4:39 AM EDT) Glucose, Plasma 255(H) 74 - 99 mg/dL 11/08/2024 5:20 AM EDT [facility] BUN, Plasma 10 8 - 23 mg/dL 11/08/2024 5:20 AM EDT [facility] Creatinine, Plasma 0.75 0.70 - 1.20 mg/dL 11/08/2024 5:20 AM EDT [facility] BUN/Creatinine Ratio 13 11/08/2024 5:20 AM EDT [facility] Sodium, Plasma 133(L) 136 - 145 mmol/L 11/08/2024 5:20 AM EDT [facility] Potassium, Plasma 5.2(H) 3.6 - 4.9 mmol/L 11/08/2024 5:20 AM EDT [facility] Chloride, Plasma 105 97 - 107 mmol/L 11/08/2024 5:20 AM EDT [facility] CO2, Plasma 20(L) 22 - 29 mmol/L 11/08/2024 5:20 AM EDT [facility] Anion Gap 8 6 - 16 mmol/L 11/08/2024 5:20 AM EDT [facility] Total Calcium, Plasma 7.7(L) 8.9 - 10.2 mg/dL 11/08/2024 5:20 AM EDT [facility] Total Protein 5.6(L) 6.3 - 7.9 g/dL 11/08/2024 5:20 AM EDT [facility] Albumin, Plasma 2.8(L) 3.5 - 5.2 g/dL 11/08/2024 5:20 AM EDT [facility] AST, Plasma 20 10 - 50 U/L 11/08/2024 5:20 AM EDT [facility] Comment:Hemolyzed, result ma y be falsely increased. ALT, Plasma 14 10 - 50 U/L 11/08/2024 5:20 AM EDT [facility] Alkaline Phosphatase, Plasma 119(H) 40 - 115 U/L 11/08/2024 5:20 AM EDT [facility] Total Bilirubin, Plasma <0.2(L) 0.2 - 1.1 mg/dL 11/08/2024 5:20 AM EDT [facility] eGFRcr 100.1 mL/min/1.7 3m*2 11/08/2024 5:20 AM EDT [facility] Comment:Reported eGFRcr in m L/min/1.73m2 is based the CKD-EPI 2020 equation that does not use a race coefficient. Blood Venous blood specimen / Unknown Venipuncture / Unknown 11/08/2024 4:39 AM EDT 11/08/2024 4:43 AM EDT us Nathaly Nowak MD LAB BLOOD ORDERABLES Final Resu lt Performing Organization Address City/[facility]/ZIP Co de Phone Number [facility] [address] [place] [address] * Vancomycin, Trough, Plasma Please draw ~30 minutes prior to dose due at 0600 on 11/08. Please do NOThold dose awaiting level to return. Consider obtaining level via peripheral stick. If peripheral stick is not feasible, please ensure that line is... (11/08/2024 4:39 AM EDT) Pathologist [facility] Vancomycin, Trough, Plasma 18.7 10.0 - 20.0 ug/mL 11/08/2024 5:22 AM EDT [facility] Blood Venous blood specimen / Unknown Venipuncture / Unknown 11/08/2024 4:39 AM EDT 11/08/2024 4:43 AM EDT Narrative [facility] - 11/08/2024 5:22 AM EDT Therapeutic Trough level: 10-20ug/mL Supra-therapeutic Trough level: >20 ug/mL us Nathaly Nowak MD LAB BLOOD ORDERABLES Final Resu lt [facility] [address] [place] [address] * (ABNORMAL) POCT glucose meter (11/07/2024 7:26 [...] Comment 11/07/2024 7:28 PM EDT [facility] Furnace Mechanic Helper ID Maximiliano Hansen II 11/07/2024 7:28 PM EDT HEALTH[facility]ARE LAB Device ID [id number] 11/07/2024 7:28 PM EDT [facility]ARE LAB Specimen Type POC Capillary 11/07/2024 7:28 PM EDT [facility] Blood Capillary blood specimen / Unknown 11/07/2024 7:26 PM EDT 11/07/2024 7:28 PM EDT Nathaly Nowak MD LAB POINT OF CARE TE ST DOCKED DEVICE UNSOLICITED RESULTS Final Result [facility] [address] [place] [address] * (ABNORMAL) POCT glucose meter (11/07/2024 5:51 PM EDT) [facility] POCT Glucose 183(H) 74 - 99 mg/dL [...] Comment 11/07/2024 5:52 PM EDT [facility]ALTH[facility] Furnace Mechanic Helper ID Brigitte Castellon 11/07/2024 5:52 PM EDT [facility]ALTH[facility]ARE LAB Device ID [id number] 11/07/2024 5:52 PM EDT [facility] Specimen Type POC Capillary 11/07/2024 5:52 PM EDT [facility] Blood Capillary blood specimen / Unknown 11/07/2024 5:51 PM EDT 11/07/2024 5:52 PM EDT Nathaly Nowak MD LAB POINT OF CARE TE ST DOCKED DEVICE UNSOLICITED RESULTS Final Result Performing Organization Address [facility] de Phone Number [facility]ARE [facility] [address] [place] [address] * (ABNORMAL) POCT glucose meter (11/07/2024 4:47 PM EDT) [facility] POCT Glucose 162(H) 74 - 99 [...] Comment 11/07/2024 4:48 PM EDT [facility] Furnace Mechanic Helper ID Estefani Sheth 11/07/2024 4:48 PM EDT HEALTHCARE LAB Device ID [id number] 11/07/2024 4:48 PM EDT [facility] Specimen Type POC Capillary 11/07/2024 4:48 PM EDT [facility] Blood Capillary blood specimen / Unknown 11/07/2024 4:47 PM EDT 11/07/2024 4:48 PM EDT Nathaly Nowak MD LAB POINT OF CARE TE ST DOCKED DEVICE UNSOLICITED RESULTS Final Result Performing Organization Address [facility] Co de Phone Number [facility] [address] [place] [address] * (ABNORMAL) POCT glucose meter (11/07/2024 12:22 PM EDT) [facility] POCT Glucose 172(H) 74 - 99 mg/dL [...] Comment 11/07/2024 12:24 PM EDT [facility] [employer] ID Estefani Sheth 11/07/2024 12:24 PM EDT [facility] Device ID [id number] 11/07/2024 12:24 PM EDT [facility] Specimen Type POC Capillary 11/07/2024 12:24 PM EDT [facility] Blood Capillary blood specimen / Unknown 11/07/2024 12:22 PM EDT 11/07/2024 12:24 PM EDT us Nathaly Nowak MD LAB POINT OF CARE TE ST DOCKED DEVICE UNSOLICITED RESULTS Final Result [facility] [address] [place] [id number] * (ABNORMAL) CBC and Differential (11/07/2024 11:37 AM EDT) WBC Count 9.96 3.70 - 10.30 10*3/uL LAB HEMATOLOGY METHOD 11/07/2024 12:33 PM EDT [facility] RBC Count 2.81(L) 4.60 - 6.10 10*6/uL LAB HEMATOLOGY METHOD 11/07/2024 12:33 PM EDT [facility] HGB 8.5(L) 13.7 - 17.5 g/dL LAB HEMATOLOGY METHOD 11/07/2024 12:33 PM EDT [facility] HCT 26.0(L) 40.0 - 51.0 % LAB HEMATOLOGY METHOD 11/07/2024 12:33 PM EDT [facility] Platelet Count 524(H) 155 - 369 10*3/uL LAB HEMATOLOGY METHOD 11/07/2024 12:33 PM EDT [facility] MCV 93 79 - 98 fL LAB HEMATOLOGY METHOD 11/07/2024 12:33 PM EDT [facility] MCH 30.2 26.0 - 32.0 pg LAB HEMATOLOGY METHOD 11/07/2024 12:33 PM EDT [facility] MCHC 32.7 30.7 - 35.5 g/dL LAB HEMATOLOGY METHOD 11/07/2024 12:33 PM EDT [facility] RDW 13.1 11.5 - 14.5 % LAB HEMATOLOGY METHOD 11/07/2024 12:33 PM EDT [facility] MPV 9.0 8.8 - 12.5 fL LAB HEMATOLOGY METHOD 11/07/2024 12:33 PM EDT [facility] nRBC 0.0 <=0.0 per 100 WBCs LAB HEMATOLOGY METHOD 11/07/2024 12:33 PM EDT [facility] Differential Type Automated LAB HEMATOLOGY METHOD 11/07/2024 12:33 PM EDT [facility] Neutrophils % 72 % LAB HEMATOLOGY METHOD 11/07/2024 12:33 PM EDT [facility] Lymphocytes % 17 % LAB HEMATOLOGY METHOD 11/07/2024 12:33 PM EDT [facility] Monocytes % 9 % LAB HEMATOLOGY METHOD 11/07/2024 12:33 PM EDT [facility] Eosinophils % 1 % LAB HEMATOLOGY METHOD 11/07/2024 12:33 PM EDT [facility] Basophils % 1 % LAB HEMATOLOGY METHOD 11/07/2024 12:33 PM EDT [facility] Immature Granulocytes % 0 % LAB HEMATOLOGY METHOD 11/07/2024 12:33 PM EDT [facility] Neutrophils Absolute 7.19(H) 1.60 - 6.10 10*3/uL LAB HEMATOLOGY METHOD 11/07/2024 12:33 PM EDT [facility] Lymphocytes Absolute 1.66 1.20 - 3.90 10*3/uL LAB HEMATOLOGY METHOD 11/07/2024 12:33 PM EDT [facility] Monocytes Absolute 0.88 0.30 - 0.90 10*3/uL LAB HEMATOLOGY METHOD 11/07/2024 12:33 PM EDT [facility] Eosinophils Absolute 0.14 0.00 - 0.50 10*3/uL LAB HEMATOLOGY METHOD 11/07/2024 12:33 PM EDT [facility] Basophils Absolute 0.05 0.00 - 0.10 10*3/uL LAB HEMATOLOGY METHOD 11/07/2024 12:33 PM EDT [facility] Immature Granulocytes Absolute 0.04 0.00 - 0.06 10*3/uL LAB HEMATOLOGY METHOD 11/07/2024 12:33 PM EDT [facility] Blood Venous blood specimen / Unknown Venipuncture / Unknown 11/07/2024 11:37 AM EDT 11/07/2024 12:24 PM EDT Narrative [facility] - 11/07/2024 12:33 PM EDT Therapeutic decision making should be based on absolute values, rather than percentages. us Nathaly Nowak MD LAB BLOOD ORDERABLES Final Resu lt [facility] [address] [place] [address] * (ABNORMAL) Comprehensive Metabolic Panel, Plasma (11/07/2024 11:37 AM EDT) Glucose, Plasma 173(H) 74 - 99 mg/dL 11/07/2024 1:31 PM EDT [facility] BUN, Plasma 13 8 - 23 mg/dL 11/07/2024 1:31 PM EDT [facility] Creatinine, Plasma 0.92 0.70 - 1.20 mg/dL 11/07/2024 1:31 PM EDT [facility] BUN/Creatinine Ratio 14 11/07/2024 1:31 PM EDT [facility] Sodium, Plasma 136 136 - 145 mmol/L 11/07/2024 1:31 PM EDT [facility] Potassium, Plasma 4.0 3.6 - 4.9 mmol/L 11/07/2024 1:31 PM EDT [facility] Chloride, Plasma 104 97 - 107 mmol/L 11/07/2024 1:31 PM EDT [facility] CO2, Plasma 23 22 - 29 mmol/L 11/07/2024 1:31 PM EDT [facility] Anion Gap 9 6 - 16 mmol/L 11/07/2024 1:31 PM EDT [facility] Total Calcium, Plasma 7.8(L) 8.9 - 10.2 mg/dL 11/07/2024 1:31 PM EDT [facility] Total Protein 5.7(L) 6.3 - 7.9 g/dL 11/07/2024 1:31 PM EDT [facility] Albumin, Plasma 3.0(L) 3.5 - 5.2 g/dL 11/07/2024 1:31 PM EDT [facility] AST, Plasma 15 10 - 50 U/L 11/07/2024 1:31 PM EDT [facility] ALT, Plasma 16 10 - 50 U/L 11/07/2024 1:31 PM EDT [facility] Alkaline Phosphatase, Plasma 119(H) 40 - 115 U/L 11/07/2024 1:31 PM EDT [facility] Total Bilirubin, Plasma <0.2(L) 0.2 - 1.1 mg/dL 11/07/2024 1:31 PM EDT [facility] eGFRcr 92.3 mL/min/1.7 3m*2 11/07/2024 1:31 PM EDT [facility] Comment:Reported eGFRcr in m L/min/1.73m2 is based the CKD-EPI 2020 equation that does not use a race coefficient. Blood Venous blood specimen / Unknown Venipuncture / Unknown 11/07/2024 11:37 AM EDT 11/07/2024 12:23 PM EDT Nathaly Nowak MD LAB BLOOD ORDERABLES Final Resu lt [facility] [address] [place] [address] * Type and Screen (11/07/2024 11:37 AM EDT) ABO/Rh A Negative 11/06/2024 8:56 AM EDT BLOOD BANK Antibody Screen Negative 11/06/2024 8:56 AM EDT BLOOD BANK Specimen Expiration 11/10/2024 23:59 11/06/2024 8:56 AM EDT BLOOD BANK Blood Venous blood specimen / Unknown Venipuncture / Unknown 11/07/2024 11:37 AM EDT 11/07/2024 11:50 AM EDT Sabrina DOSHI LAB BLOOD BANK TEST ORDERABLES F inal Result BLOOD BANK [address] * (ABNORMAL) POCT glucose meter (11/07/2024 10:34 AM EDT) [facility] POCT Glucose 199(H) 74 - 99 mg/dL 11/07/2024 10:36 AM EDT [facility] Comment:Accuracy of a [...] Comment 11/07/2024 10:36 AM EDT [facility] [employer] ID Joy Iraheta 11/07/2024 10:36 AM EDT HEALTH[facility]ARE LAB Device ID [id number] 11/07/2024 10:36 AM EDT [facility] Specimen Type POC Capillary 11/07/2024 10:36 AM EDT [facility] Blood Capillary blood specimen / Unknown 11/07/2024 10:34 AM EDT 11/07/2024 10:36 AM EDT Nathaly Nowak MD LAB POINT OF CARE TE ST DOCKED DEVICE UNSOLICITED RESULTS Final Result Performing Organization Address City/[facility] Co de Phone Number [facility] [address] [place] [address] * (ABNORMAL) POCT glucose meter (11/07/2024 9:34 AM EDT) [facility] POCT Glucose 208(H) 74 - 99 [...] 11/07/2024 9:36 AM EDT [facility] Furn[employer]per ID Brigitte Castellon 11/07/2024 9:36 AM EDT HEALTHCARE LAB Device ID [id number] 11/07/2024 9:36 AM EDT [facility]ALTH[facility]ARE LAB Specimen Type POC Capillary 11/07/2024 9:36 AM EDT [facility] Blood Capillary blood specimen / Unknown 11/07/2024 9:34 AM EDT 11/07/2024 9:36 AM EDT Nathaly Nowak MD LAB POINT OF CARE TE ST DOCKED DEVICE UNSOLICITED RESULTS Final Result Performing Organization Address City/[facility]/ZIP Co de Phone Number [facility] [address] [place] [address] * (ABNORMAL) POCT glucose meter (11/07/2024 8:20 AM EDT) [facility] POCT Glucose 137(H) 74 - 99 [...] Comment 11/07/2024 8:22 AM EDT [facility]ALTH[facility] Furnace Mechanic Helper ID Estefani Sheth 11/07/2024 8:22 AM EDT HEALTHCARE LAB Device ID [id number] 11/07/2024 8:22 AM EDT [facility] LAB Specimen Type POC Capillary 11/07/2024 8:22 AM EDT [facility] Blood Capillary blood specimen / Unknown 11/07/2024 8:20 AM EDT 11/07/2024 8:22 AM EDT Nathaly Nowak MD LAB POINT OF CARE TE ST DOCKED DEVICE UNSOLICITED RESULTS Final Result Performing Organization Address City/[facility]/ZIP Co de Phone Number [facility] [address] [place] [address] * (ABNORMAL) POCT glucose meter (11/07/2024 7:21 [...] Comment 11/07/2024 7:22 AM EDT [facility] LAB Furnace Mechanic Helper ID Brigitte Castellon 11/07/2024 7:22 AM EDT HEALTH[facility]ARE LAB Device ID [id number] 11/07/2024 7:22 AM EDT [facility] Specimen Type POC Capillary 11/07/2024 7:22 AM EDT [facility] Blood Capillary blood specimen / Unknown 11/07/2024 7:21 AM EDT 11/07/2024 7:22 AM EDT Nathaly Nowak MD LAB POINT OF CARE TE ST DOCKED DEVICE UNSOLICITED RESULTS Final Result [facility] [address] [place] [address] * (ABNORMAL) POCT glucose meter (11/07/2024 6:25 AM EDT) [facility] POCT Glucose 144(H) 74 - 99 [...] Comment 11/07/2024 6:27 AM EDT [facility] Furnace Mechanic Helper ID Nelda Gerber 11/08/19 6:27 AM EDT HEALTH[facility]ARE LAB Device ID [id number] 11/07/2024 6:27 AM EDT [facility] Specimen Type POC Capillary 11/07/2024 6:27 AM EDT [facility] Blood Capillary blood specimen / Unknown 11/07/2024 6:25 AM EDT 11/07/2024 6:27 AM EDT Nathaly Nowak MD LAB POINT OF CARE TE ST DOCKED DEVICE UNSOLICITED RESULTS Final Result Performing Organization Address [facility] de Phone Number [facility]ALTH[facility]ARE [facility] [address] [place] [address] * (ABNORMAL) POCT glucose meter (11/07/2024 5:03 AM EDT) Pathologist [facility] POCT Glucose 139(H) 74 - 99 mg/dL [...] Comment 11/07/2024 5:08 AM EDT [facility] Furnace Mechanic Helper ID Nelda Gerber 11/08/19 5:08 AM EDT HEALTHCARE LAB Device ID [id number] 11/07/2024 5:08 AM EDT [facility] Specimen Type POC Capillary 11/07/2024 5:08 AM EDT [facility] Blood Capillary blood specimen / Unknown 11/07/2024 5:03 AM EDT 11/07/2024 5:08 AM EDT Nathaly Nowak MD LAB POINT OF CARE TE ST DOCKED DEVICE UNSOLICITED RESULTS Final Result Performing Organization Address City/[facility] Co de Phone Number [facility] [address] [place] [address] * (ABNORMAL) POCT glucose meter (11/07/2024 4:16 AM EDT) Pathologist [facility] POCT Glucose 142(H) 74 - 99 mg/dL [...] Comment 11/07/2024 4:18 AM EDT [facility]ALTH[facility]ARE LAB Furnace Mechanic Helper ID Nelda Gerber 11/08/19 4:18 AM EDT HEALTHCARE LAB Device ID [id number] 11/07/2024 4:18 AM EDT [facility]ARE LAB Specimen Type POC Capillary 11/07/2024 4:18 AM EDT [facility] Blood Capillary blood specimen / Unknown 11/07/2024 4:16 AM EDT 11/07/2024 4:18 AM EDT Nathaly Nowak MD LAB POINT OF CARE TE ST DOCKED DEVICE UNSOLICITED RESULTS Final Result Performing Organization Address City/[facility] Co de Phone Number [facility]ARE LAB [address] [place] [address] * (ABNORMAL) POCT glucose meter (11/07/2024 3:21 AM EDT) [facility] Signature POCT Glucose 141(H) 74 - 99 mg/dL [...] Comment 11/07/2024 3:23 AM EDT [facility]ALTH[facility] LAB Furnace Mechanic Helper ID Nelda Gerber 11/08/19 3:23 AM EDT HEALTHCARE LAB Device ID [id number] 11/07/2024 3:23 AM EDT [facility] Specimen Type POC Capillary 11/07/2024 3:23 AM EDT [facility] Blood Capillary blood specimen / Unknown 11/07/2024 3:21 AM EDT 11/07/2024 3:23 AM EDT us Nathaly Nowak MD LAB POINT OF CARE TE ST DOCKED DEVICE UNSOLICITED RESULTS Final Result [facility] [address] [place] [address] * (ABNORMAL) POCT glucose meter (11/07/2024 2:10 AM EDT) [facility] POCT Glucose 146(H) 74 - 99 mg/dL [...] Comment 11/07/2024 2:12 AM EDT HEALTH[facility]ARE LAB Furnace Mechanic Helper ID Nelda Gerber 11/08/19 2:12 AM EDT [facility] Device ID [id number] 11/07/2024 2:12 AM EDT [facility]ALTH[facility]ARE LAB Specimen Type POC Capillary 11/07/2024 2:12 AM EDT [facility] Blood Capillary blood specimen / Unknown 11/07/2024 2:10 AM EDT 11/07/2024 2:12 AM EDT Nathaly Nowak MD LAB POINT OF CARE TE ST DOCKED DEVICE UNSOLICITED RESULTS Final Result Performing Organization Address [facility] Co de Phone Number [facility] [address] [place] [address] * (ABNORMAL) POCT glucose meter (11/07/2024 1:08 AM EDT) [facility] POCT Glucose 135(H) 74 - 99 mg/dL [...] for testing. Comment 11/07/2024 1:10 AM EDT [facility] Furn[employer] Helper ID Nelda Gerber 11/08/19 1:10 AM EDT [facility] Device ID [id number] 11/07/2024 1:10 AM EDT [facility]ALTH[facility]ARE LAB Specimen Type POC Capillary 11/07/2024 1:10 AM EDT [facility] Blood Capillary blood specimen / Unknown 11/07/2024 1:08 AM EDT 11/07/2024 1:10 AM EDT Nathaly Nowak MD LAB POINT OF CARE TE ST DOCKED DEVICE UNSOLICITED RESULTS Final Result Performing Organization Address [facility] Co de Phone Number [facility] [address] [place] [address] * (ABNORMAL) POCT glucose meter (11/07/2024 12:10 AM EDT) Pathologist [facility] POCT Glucose 127(H) 74 - 99 mg/dL [...] Comment 11/07/2024 12:13 AM EDT [facility]ALTH[facility] LAB Furnace Mechanic Helper ID Nelda Gerber 11/08/19 12:13 AM EDT HEALTHCARE LAB Device ID [id number] 11/07/2024 12:13 AM EDT [facility] LAB Specimen Type POC Capillary 11/07/2024 12:13 AM EDT [facility] Blood Capillary blood specimen / Unknown 11/07/2024 12:10 AM EDT 11/07/2024 12:13 AM EDT us Nathaly Nowak MD LAB POINT OF CARE TE ST DOCKED DEVICE UNSOLICITED RESULTS Final Result Performing Organization Address City/[facility] de Phone Number [facility] [address] [place] [address] * (ABNORMAL) POCT glucose meter (11/06/2024 11:14 [...] 11/06/2024 11:16 PM EDT [facility] Furnace Mechanic Helper ID Nelda Gerber 11/07/19 11:16 PM EDT [facility] Device ID [id number] 11/06/2024 11:16 PM EDT [facility] Specimen Type POC Capillary 11/06/2024 11:16 PM EDT [facility] Blood Capillary blood specimen / Unknown 11/06/2024 11:14 PM EDT 11/06/2024 11:16 PM EDT Nathaly Nowak MD LAB POINT OF CARE TE ST DOCKED DEVICE UNSOLICITED RESULTS Final Result [facility] [address] [place] [address] * (ABNORMAL) POCT glucose meter (11/06/2024 10:07 PM EDT) [facility] POCT Glucose 140(H) 74 - 99 mg/dL [...] 11/06/2024 10:09 PM EDT [facility] Furnace Mechanic Helper ID Nelda Gerber 11/07/19 10:09 PM EDT [facility] Device ID [id number] 11/06/2024 10:09 PM EDT [facility] Specimen Type POC Capillary 11/06/2024 10:09 PM EDT [facility] Blood Capillary blood specimen / Unknown 11/06/2024 10:07 PM EDT 11/06/2024 10:09 PM EDT Nathaly Nowak MD LAB POINT OF CARE TE ST DOCKED DEVICE UNSOLICITED RESULTS Final Result Performing Organization Address [facility] de Phone Number [facility] [address] [place] [address] * (ABNORMAL) POCT glucose meter (11/06/2024 8:22 PM EDT) Pathologist [facility] POCT Glucose 256(H) 74 - 99 mg/dL [...] Comment 11/06/2024 8:25 PM EDT HEALTH[facility]ARE LAB Furnace Mechanic Helper ID Nelda Gerber 11/07/19 8:25 PM EDT [facility] Device ID [id number] 11/06/2024 8:25 PM EDT [facility] Specimen Type POC Capillary 11/06/2024 8:25 PM EDT [facility] Blood Capillary blood specimen / Unknown 11/06/2024 8:22 PM EDT 11/06/2024 8:25 PM EDT Nathaly Nowak MD LAB POINT OF CARE TE ST DOCKED DEVICE UNSOLICITED RESULTS Final Result Performing Organization Address City/[facility] de Phone Number [facility] [address] [place] [address] * (ABNORMAL) POCT glucose meter (11/06/2024 7:31 PM EDT) [facility] POCT Glucose 359(H) 74 - 99 mg/dL [...] 11/06/2024 7:32 PM EDT [facility] Furnace Mechanic Helper ID Nelda Gerber 11/07/19 7:32 PM EDT [facility] Device ID [id number] 11/06/2024 7:32 PM EDT [facility] Specimen Type POC Capillary 11/06/2024 7:32 PM EDT [facility] Blood Capillary blood specimen / Unknown 11/06/2024 7:31 PM EDT 11/06/2024 7:32 PM EDT Nathaly Nowak MD LAB POINT OF CARE TE ST DOCKED DEVICE UNSOLICITED RESULTS Final Result Performing Organization Address [facility] Co de Phone Number [facility]ARE [facility] [address] [place] [address] * (ABNORMAL) POCT glucose meter (11/06/2024 6:15 [...] 11/06/2024 6:17 PM EDT [facility] Furnace Mechanic Helper ID Estefani Sheth 11/06/2024 6:17 PM EDT HEALTHCARE LAB Device ID [id number] 11/06/2024 6:17 PM EDT [facility] Specimen Type POC Capillary 11/06/2024 6:17 PM EDT [facility] Blood Capillary blood specimen / Unknown 11/06/2024 6:15 PM EDT 11/06/2024 6:17 PM EDT Nathaly Nowak MD LAB POINT OF CARE TE ST DOCKED DEVICE UNSOLICITED RESULTS Final Result Performing Organization Address City/[facility] Co de Phone Number [facility] [address] [place] [address] * (ABNORMAL) POCT glucose meter (11/06/2024 4:57 PM EDT) [facility] POCT Glucose 417(H) 74 - 99 mg/dL [...] Comment 11/06/2024 4:58 PM EDT [facility]ALTH[facility]ARE LAB Furnace Mechanic Helper ID Estefani Sheth 11/06/2024 4:58 PM EDT HEALTH[facility]ARE LAB Device ID [id number] 11/06/2024 4:58 PM EDT [facility] Specimen Type POC Capillary 11/06/2024 4:58 PM EDT [facility] Blood Capillary blood specimen / Unknown 11/06/2024 4:57 PM EDT 11/06/2024 4:58 PM EDT Nathaly Nowak MD LAB POINT OF CARE TE ST DOCKED DEVICE UNSOLICITED RESULTS Final Result [facility] [address] [place] [address] * (ABNORMAL) POCT glucose meter (11/06/2024 2:08 PM EDT) [facility] POCT Glucose 253(H) 74 - 99 [...] for testing. Comment 11/06/2024 2:09 PM EDT [facility] Furnace Mechanic Helper ID Brigitte Castellon 11/06/2024 2:09 PM EDT [facility] Device ID [id number] 11/06/2024 2:09 PM EDT [facility] Specimen Type POC Capillary 11/06/2024 2:09 PM EDT [facility] Blood Capillary blood specimen / Unknown 11/06/2024 2:08 PM EDT 11/06/2024 2:09 PM EDT Nathaly Nowak MD LAB POINT OF CARE TE ST DOCKED DEVICE UNSOLICITED RESULTS Final Result Performing Organization Address City/[facility]/ZIP Co de Phone Number [facility] [address] [place] [address] * (ABNORMAL) POCT glucose meter (11/06/2024 12:27 PM EDT) [facility] POCT Glucose 228(H) 74 - 99 [...] Comment 11/06/2024 12:28 PM EDT [facility] Furnace Mechanic Helper ID Jacinta Galloway 11/06/2024 12:28 PM EDT HEALTH[facility]ARE LAB Device ID [id number] 11/06/2024 12:28 PM EDT [facility] Specimen Type POC Capillary 11/06/2024 12:28 PM EDT [facility] Blood Capillary blood specimen / Unknown 11/06/2024 12:27 PM EDT 11/06/2024 12:28 PM EDT Nathaly Nowak MD LAB POINT OF CARE TE ST DOCKED DEVICE UNSOLICITED RESULTS Final Result Performing Organization Address City/[facility]/ZIP Co de Phone Number [facility] [address] [place] [phone] * (ABNORMAL) Fungal Culture, Tissue and ISIDRO (11/06/2024 11:34 AM EDT) Pathologist [facility] Culture Reading Mycological 4 Weeks Rare [place] Sana parapsilosis (A) 12/05/2024 8:36 AM EDT [facility] Comment: This isolate has been identified using the FDA Approved [employer] Xentiony[employer] [place] System The organism value for this result has been updated. These results have been appended to the previously preliminary verified report. Edited result: Previously reported as Yeast on 11/11/2024 at 1317 EDT. ISIDRO No fungal elements seen 12/05/2024 8:36 AM EDT [facility] Tissue Topography unknown / Unknown [...] [facility] Final Result [facility] [address] [place] [address] * (ABNORMAL) Tissue Culture and Gram Stain (11/06/2024 11:34 AM EDT) Culture Moderate Growth 7:35 AM EDT [facility] Culture 2+ Enterobacter cloacae complex(A) ANGÉLICA 11/15/2024 7:35 AM EDT [facility] Comment: This isolate has been identified using the FDA Approved [employer] Xentiony[employer] [place] System The organism value for this result has been updated. These results have been appended to the previously preliminary verified report. Edited result: Previously reported as Gram Negative Jesus on 11/07/2024 at 1434 EDT. Culture 2+ Streptococcus mitis/oralis group(A) ANGÉLICA 11/15/2024 7:35 AM EDT [facility] Comment: This isolate has been identified using the FDA Approved [employer] [place] System The organism value for this result has been updated. These results have been appended to the previously preliminary verified report. Culture 2+ Pasteurella stomatis(A) ANGÉLICA 11/15/2024 7:35 AM EDT [facility] Comment: This result was determined by MALDI tof mass spectrometry using the [employer] database and is for research use only. The organism value for this result has been updated. These results have been appended to the previously preliminary verified report. Gram Stain Result Few Gram negative rods(A) 11/15/2024 7:35 AM EDT [facility] Gram Stain Result Moderate Polymorphonuclear leukocytes(A) 11/15/2024 7:35 AM EDT [facility] Gram Stain Result Few Gram positive cocci in pairs(A) 11/15/2024 7:35 AM EDT [facility] Tissue Topography unknown / Unknown 11/06/2024 11:34 AM EDT 11/06/2024 12:18 PM EDT Comment:Pre-op diagnosis: Surgical wound infection [T81.49XA] Narrative [facility] - 11/15/2024 7:35 AM EDT PharmD Huntre Alberts requests penicillin, ceftriaxone and vancomycin on [...] GENERAL ORDAna FRITZ Edited Result - Final [facility] [address] [place] [address] * (ABNORMAL) Anaerobic Culture (11/06/2024 11:34 AM EDT) Culture No anaerobes isolated 11/14/2024 1:25 PM EDT [facility] Culture Staphylococcus pseudintermedius( A) 11/14/2024 1:25 PM EDT [facility] Comment: This result was determined by MALDI tof mass spectrometry using the [employer] database and is for research use only. This is an appended report. These results have been appended to a previously final verified report. Tissue Topography unknown / Unknown 11/06/2024 11:34 AM EDT 11/06/2024 12:18 PM EDT Comment:Pre-op diagnosis: Surgical wound infection [T81.49XA] Narrative [facility] - 11/14/2024 1:25 PM EDT [...] GENERAL ATIYA FRITZ Edited Result - Final [facility] [address] [place] [address] * (ABNORMAL) Routine Culture and Gram Stain (11/06/2024 11:29 AM EDT) Culture Moderate Growth 5:29 PM EDT [facility] Culture Enterobacter cloacae complex(A) 11/08/2024 5:29 PM EDT [facility] Comment: This isolate has been identified using the FDA Approved Zig[employer]cher [place] System For susceptibility results refer to: - [id number] The organism value for this result has been updated. These results have been appended to the previously preliminary verified report. Gram Stain Result No polymorphonuclear leukocytes seen 11/08/2024 5:29 PM EDT [facility] Gram Stain Result No organisms seen 11/08/2024 5:29 PM EDT [facility] Swab Topography unknown / Unknown 11/06/2024 11:29 AM EDT 11/06/2024 12:19 PM EDT Comment:Pre-op diagnosis: Surgical wound infection [T81.49XA] Nathaly Nowak MD LAB MICROBIOLOGY - GENERAL ORDE [facility] Final Result Performing Organization Address [facility] de Phone Number [facility] [address] [place] [address] * Fungal Culture, Routine (11/06/2024 11:29 AM EDT) Culture No Fungal Growth at 1 Week 11/13/2024 8:29 AM EDT [facility] Swab Topography unknown / Unknown 11/06/2024 11:29 AM EDT 11/06/2024 12:19 PM EDT Comment:Pre-op diagnosis: Surgical wound infection [T81.49XA] Nathaly Nowak MD LAB MICROBIOLOGY - GENERAL ORDE RABONEIDA Final Result Performing Organization Address City/[facility]/ZIP Co de Phone Number [facility] [address] [place] [address] * (ABNORMAL) Anaerobic Culture (11/06/2024 11:29 AM EDT) Culture No anaerobes isolated 11/14/2024 1:25 PM EDT [facility] Culture Streptococcus mitis/oralis group(A) 11/14/2024 1:25 PM EDT [facility] Comment: This result was determined by MALDI tof mass spectrometry using the [employer] database and is for research use only. The organism value for this result has been updated. These results have been appended to the previously preliminary verified report. This is a corrected result. Previous organism was Mixed skin clifton on 11/10/2024 at 0718 EDT. Culture Staphylococcus pseudintermedius( A) 11/14/2024 1:25 PM EDT [facility] Comment: This isolate has been identified using the FDA Approved [employer]DI [employer] [place] System This is an appended report. These results have been appended to a previously final verified report. Swab Topography unknown / Unknown 11/06/2024 11:29 AM EDT 11/06/2024 12:19 PM EDT Comment:Pre-op diagnosis: Surgical wound infection [T81.49XA] Narrative [facility] - 11/14/2024 1:25 PM EDT [...] GENERAL ORDAna FRITZ Edited Result - Final [facility] [address] [place] [address] * Routine Culture and Gram Stain (11/06/2024 11:28 AM EDT) Culture No growth at day 4 2024 11:24 AM EDT [facility] Gram Stain Result No organisms seen 11/10/2024 11:24 AM EDT [facility] Gram Stain Result No polymorphonuclear leukocytes seen 11/10/2024 11:24 AM EDT [facility] Swab Topography unknown / Unknown 11/06/2024 11:28 AM EDT 11/06/2024 12:20 PM EDT Comment:Pre-op diagnosis: Surgical wound infection [T81.49XA] us Nathaly Nowak MD LAB MICROBIOLOGY - GENERAL ATIYA FRITZ Final Result Performing Organization Address City/[facility] [place] [address] * Fungal Culture, Routine (11/06/2024 11:28 AM EDT) Culture No Fungal Growth at 1 Week 11/13/2024 8:29 AM EDT [facility] Swab Topography unknown / Unknown 11/06/2024 11:28 AM EDT 11/06/2024 12:20 PM EDT Comment:Pre-op diagnosis: Surgical wound infection [T81.49XA] Result Ghazala Nowak MD LAB MICROBIOLOGY - GENERAL ATIYA FRITZ Final Result [facility] [address] [place] [address] * Anaerobic Culture (11/06/2024 11:28 AM EDT) Culture No growth at day 4 11/13/2024 12:53 PM EDT [facility] Swab Topography unknown / Unknown 11/06/2024 11:28 AM EDT 11/06/2024 12:20 PM EDT Comment:Pre-op diagnosis: Surgical wound infection [T81.49XA] us Nathaly Nowak MD LAB MICROBIOLOGY - GENERAL ORD LAM Final Result Performing Organization Address City/[facility]/ZIP Co de Phone Number [facility] [address] [place] [address] * (ABNORMAL) POCT glucose meter (11/06/2024 10:16 AM EDT) POCT Glucose 194(H) 74 - 99 mg/dL 11/06/2024 10:18 AM EDT [facility] Comment:Accuracy of a [...] for testing. Comment 11/06/2024 10:18 AM EDT [facility] Furnace Mechanic Helper ID Lacy Griffin 11/07/19 25 10:18 AM EDT [facility] Device ID [id number] 11/06/2024 10:18 AM EDT [facility] Specimen Type POC Capillary 11/06/2024 10:18 AM EDT [facility] Blood Capillary blood specimen / Unknown 11/06/2024 10:16 AM EDT 11/06/2024 10:18 AM EDT Nathaly Nowak MD LAB POINT OF CARE TE ST DOCKED DEVICE UNSOLICITED RESULTS Final Result Performing Organization Address City/[facility]/ZIP Co de Phone Number [facility] [address] [place] [address] * (ABNORMAL) POCT glucose meter (11/06/2024 5:58 [...] for testing. Comment 11/06/2024 6:01 AM EDT [facility] Furnace Mechanic Helper ID Raj Laird 11/07/19 6:01 AM EDT [facility]ALTHCARE LAB Device ID [id number] 11/06/2024 6:01 AM EDT [facility] Specimen Type POC Capillary 11/06/2024 6:01 AM EDT [facility] Blood Capillary blood specimen / Unknown 11/06/2024 5:58 AM EDT 11/06/2024 6:01 AM EDT Nathaly Nowak MD LAB POINT OF CARE TE ST DOCKED DEVICE UNSOLICITED RESULTS Final Result Performing Organization Address City/[facility] Co de Phone Number [facility] [address] [place] [address] * (ABNORMAL) POCT glucose meter (11/06/2024 5:36 AM EDT) [facility] POCT Glucose 202(H) 74 - 99 [...] Comment 11/06/2024 5:38 AM EDT [facility] Furnace Mechanic Helper ID Shahid Sanches 11/06/2024 5:38 AM EDT [facility] Device ID [id number] 11/06/2024 5:38 AM EDT [facility] Specimen Type POC Capillary 11/06/2024 5:38 AM EDT [facility] Blood Capillary blood specimen / Unknown 11/06/2024 5:36 AM EDT 11/06/2024 5:38 AM EDT Nathaly Nowak MD LAB POINT OF CARE TE ST DOCKED DEVICE UNSOLICITED RESULTS Final Result Performing Organization Address City/[facility]/ZIP Co de Phone Number [facility] [address] [place] [address] * (ABNORMAL) Hemoglobin A1c (11/06/2024 1:07 AM EDT) Hemoglobin A1c 7.6(H) <5.7 % 11/06/2024 11:09 AM EDT [facility] Blood Venous blood specimen / Unknown Venipuncture / Unknown 11/06/2024 1:07 AM EDT 11/06/2024 1:26 AM EDT Narrative [facility] - 11/06/2024 11:09 AM EDT HA1C Interpretive Data: Diagnosis of Diabetes: Diabetic > or = 6.5% Pre-diabetic 5.7 to 6.4% Non-diabetic < or = 5.6% Glycemic Targets for Type I and Type II Diabetics: Non- Adults <7.0% Adults <6.0% Children and Adolescents <7.5% Source: [employer]. Standards of medical care in diabetes,2017. Diabetes Care.2017:40 (suppl 1):S1-S135. us Nathaly Nowak MD LAB BLOOD ORDERABLES Final Resu lt [facility] [address] [place] [address] * Blood Culture (Aerobic/Anaerobet Set) (11/06/2024 1:07 AM EDT) Culture No growth at day 5 11/11/2024 2:49 AM EDT [facility] Blood Structure of right hand / Unknown Venipuncture / Unknown 11/06/2024 1:07 AM EDT 11/06/2024 2:36 AM EDT us Nathaly Noawk MD LAB MICROBIOLOGY - GENERAL ORDE RABLES Final Result [facility] [address] [place] [address] * Blood Culture (Aerobic/Anaerobet Set) (11/06/2024 1:07 AM EDT) Culture No growth at day 5 11/11/2024 3:01 AM EDT [facility] Blood Structure of antecubital vein / Unknown Venipuncture / Unknown 11/06/2024 1:07 AM EDT 11/06/2024 2:36 AM EDT us Nathaly Nowak MD LAB MICROBIOLOGY - GENERAL ATIYA FRITZ Final Result [facility] [address] [place] [address] * (ABNORMAL) Basic metabolic panel (11/06/2024 1:07 AM EDT) Pathologist [facility] Glucose, Plasma 207(H) 74 - 99 mg/dL 11/06/2024 1:41 AM EDT [facility] BUN, Plasma 20 8 - 23 mg/dL 11/06/2024 1:41 AM EDT [facility] Creatinine, Plasma 0.92 0.70 - 1.20 mg/dL 11/06/2024 1:41 AM EDT [facility] BUN/Creatinine Ratio 22 11/06/2024 1:41 AM EDT [facility] Sodium, Plasma 136 136 - 145 mmol/L 11/06/2024 1:41 AM EDT [facility] Potassium, Plasma 4.5 3.6 - 4.9 mmol/L 11/06/2024 1:41 AM EDT [facility] Chloride, Plasma 104 97 - 107 mmol/L 11/06/2024 1:41 AM EDT [facility] CO2, Plasma 22 22 - 29 mmol/L 11/06/2024 1:41 AM EDT [facility] Anion Gap 10 6 - 16 mmol/L 11/06/2024 1:41 AM EDT [facility] Total Calcium, Plasma 9.0 8.9 - 10.2 mg/dL 11/06/2024 1:41 AM EDT [facility] eGFRcr 92.3 mL/min/1.7 3m*2 11/06/2024 1:41 AM EDT [facility] Comment:Reported eGFRcr in m L/min/1.73m2 is based the CKD-EPI 2020 equation that does not use a race coefficient. Blood Venous blood specimen / Unknown Venipuncture / Unknown 11/06/2024 1:07 AM EDT 11/06/2024 1:12 AM EDT us Nathaly Nowak MD LAB BLOOD ORDERABLES Final Resu lt Performing Organization Address [facility] Co de Phone Number [facility] [address] [place] [address] * Phosphorus (11/06/2024 1:07 AM EDT) Phosphorus, Plasma 3.2 2.5 - 4.5 mg/dL 11/06/2024 1:41 AM EDT [facility] Blood Venous blood specimen / Unknown Venipuncture / Unknown 11/06/2024 1:07 AM EDT 11/06/2024 1:12 AM EDT us Nathaly Nowak MD LAB BLOOD ORDERABLES Final Resu lt Performing Organization Address [facility] de Phone Number [facility] [address] [place] [address] * Magnesium (11/06/2024 1:07 AM EDT) Magnesium, Plasma 2.2 1.9 - 2.4 mg/dL 11/06/2024 1:41 AM EDT [facility] Blood Venous blood specimen / Unknown Venipuncture / Unknown 11/06/2024 1:07 AM EDT 11/06/2024 1:12 AM EDT Nathaly Nowak MD LAB BLOOD ORDERABLES Final Resu lt Performing Organization Address [facility] Co de Phone Number [facility] [address] [place] [address] * (ABNORMAL) CBC (11/06/2024 1:07 AM EDT) WBC Count 9.70 3.70 - 10.30 10*3/uL LAB HEMATOLOGY METHOD 11/06/2024 1:19 AM EDT [facility] RBC Count 2.89(L) 4.60 - 6.10 10*6/uL LAB HEMATOLOGY METHOD 11/06/2024 1:19 AM EDT [facility] HGB 8.8(L) 13.7 - 17.5 g/dL LAB HEMATOLOGY METHOD 11/06/2024 1:19 AM EDT [facility] HCT 26.2(L) 40.0 - 51.0 % LAB HEMATOLOGY METHOD 11/06/2024 1:19 AM EDT [facility] Platelet Count 542(H) 155 - 369 10*3/uL LAB HEMATOLOGY METHOD 11/06/2024 1:19 AM EDT [facility] MCV 91 79 - 98 fL LAB HEMATOLOGY METHOD 11/06/2024 1:19 AM EDT [facility] MCH 30.4 26.0 - 32.0 pg LAB HEMATOLOGY METHOD 11/06/2024 1:19 AM EDT [facility] MCHC 33.6 30.7 - 35.5 g/dL LAB HEMATOLOGY METHOD 11/06/2024 1:19 AM EDT [facility] RDW 13.2 11.5 - 14.5 % LAB HEMATOLOGY METHOD 11/06/2024 1:19 AM EDT [facility] MPV 8.7(L) 8.8 - 12.5 fL LAB HEMATOLOGY METHOD 11/06/2024 1:19 AM EDT [facility] nRBC 0.0 <=0.0 per 100 WBCs LAB HEMATOLOGY METHOD 11/06/2024 1:19 AM EDT [facility] Blood Venous blood specimen / Unknown Venipuncture / Unknown 11/06/2024 1:07 AM EDT 11/06/2024 1:12 AM EDT us Nathaly Nowak MD LAB BLOOD ORDERABLES Final Resu lt [facility] [address] [place] [address] * Gold Top (11/06/2024 12:58 AM EDT) Extra Hold for add-ons 11/06/2024 3:21 AM EDT [facility] Comment:Auto resulted. Blood Venous blood specimen / Unknown 11/06/2024 12:58 AM EDT 11/06/2024 1:13 AM EDT us Nathaly Nowak MD LAB BLOOD ORDERABLES Final Resu lt Performing Organization Address City/[facility]/ZIP Co de Phone Number [facility] [address] [place] [address] * Gold Top (11/06/2024 12:58 AM EDT) Extra Hold for add-ons 11/06/2024 3:21 AM EDT [facility] Comment:Auto resulted. Blood Venous blood specimen / Unknown 11/06/2024 12:58 AM EDT 11/06/2024 1:13 AM EDT us Nathaly Nowak MD LAB BLOOD ORDERABLES Final Resu lt Performing Organization Address [facility] Co de Phone Number [facility] [address] [place] [address] * Light Green Top (11/06/2024 12:58 AM EDT) Extra Hold for add-ons 11/06/2024 3:21 AM EDT [facility] Comment:Auto resulted. Blood Venous blood specimen / Unknown 11/06/2024 12:58 AM EDT 11/06/2024 1:13 AM EDT us Nathaly Nowak MD LAB BLOOD ORDERABLES Final Resu lt Performing Organization Address [facility] Co de Phone Number [facility] [address] [place] [address] * Light Blue Top (11/06/2024 12:58 AM EDT) Extra Hold for add-ons 11/06/2024 3:21 AM EDT [facility] Comment:Auto resulted. Blood Venous blood specimen / Unknown 11/06/2024 12:58 AM EDT 11/06/2024 1:13 AM EDT us Nathaly Nowak MD LAB BLOOD ORDERABLES Final Resu lt Performing Organization Address City/[facility]/ZIP Co de Phone Number [facility] [address] [place] [address] * Light Blue Top (11/06/2024 12:58 AM EDT) [facility] Extra Hold for add-ons 11/06/2024 3:21 AM EDT [facility] Comment:Auto resulted. Blood Venous blood specimen / Unknown 11/06/2024 12:58 AM EDT 11/06/2024 1:13 AM EDT Nathaly Nowak MD LAB BLOOD ORDERABLES Final Resu lt [facility] [address] [place] [address] * (ABNORMAL) POCT glucose meter (11/06/2024 12:45 AM EDT) [facility] POCT Glucose 204(H) 74 - 99 mg/dL [...] Comment 11/06/2024 12:48 AM EDT [facility] Furnace Mechanic Helper ID Raj Laird 11/07/19 25 12:48 AM EDT [facility]ALTH[facility] LAB Device ID [id number] 11/06/2024 12:48 AM EDT [facility] Specimen Type POC Capillary 11/06/2024 12:48 AM EDT [facility] Blood Capillary blood specimen / Unknown 11/06/2024 12:45 AM EDT 11/06/2024 12:48 AM EDT us Nathaly Nowak MD LAB POINT OF CARE TE ST DOCKED DEVICE UNSOLICITED RESULTS Final Result Performing Organization Address City/[facility]/ZIP Co de Phone Number [facility] [address] [place] [address] documented in this encounter Visit Diagnoses Diagnosis [...] on Mon11/06/24 at 0753, Until [facility] 11/14/24 at 1804, Routine, On Unit - Preprocedure, line care sodium chloride 0.9 % flush 10 mL 10 mL, Intravenous, Every 12 hours, First dose on [facility] 11/09/24 at 1515, Until [...] Devora Bo) 0918 (Canceled Entry - Provider: Elizabeth BlandonD - Comment: due at 0900)0930 (New Bag - Provider: Yazmin Bhatt RN) insulin glargine-yfgn 100 UNIT/ML injection 28 Units 28 Units, Subcutaneous, Nightly, First dose on [facility] 11/07/24 at 2100, Until Discontinued, Routine 2125 (Given - Provider: Jonathan Vale RN) 2031 (Given - Provider: Jonathan Vale RN) insulin lispro (Admelog) 100 units/mL injection - Correction - Resistant Dose 0-10 Units, Subcutaneous, 3 times daily with meals, First dose on [facility] 11/07/24 at 0945, Until Discontinued, Routine 916 (Not Given - Provider: Devora Bo - [...] (2099 & 299), First dose on [facility] 11/07/24 at 2100, Until Discontinued, Routine 221 (Not Given - Provider: Jonathan Vale RN - Reason: Order parameters not met)2125 (Not Given - Provider: Jonathan Vale RN - Reason: Order parameters not met) 257 (Not Given - Provider: Jonathan Vale RN - Reason: Order parameters not met)2099 (Given - Provider: Jonathan Vale RN) 412 (Not Given - Provider: Jonathan K Hickey, RN - Reason: Order parameters not met) [...] Bo)2122 (Given - Provider: Jonathan Vale RN) 08 (Given - Provider: Devora Bo)2031 (Given - [...] Until Discontinued, Routine 0938 (Given - Provider: Dveora Bo)212 (Given - Provider: Jonathan Vale RN) [...] - Comment: infusing)2341 (Given - Provider: Jonathan Vale, CHRISTIAN) 1210 (Given - Provider: Yazmin Bhatt, CHRISTIAN) sodium chloride 0.9 % flush 10 mL(Linked Group 2) 10 mL, Intravenous, Every 12 hours, First dose on Mon11/06/24 at 0800, Until Discontinued, Routine, On Unit - Preprocedure 0939 (Given - Provider: Devora Bo)2126 (Given - Provider: Jonathan Vale, CHRISTIAN) 0840 (Given - Provider: Devora Bo)2032 (Given [...] documented as of this encounter Care Teams Frame Gate Mortiser Operator Relationship Specialty Start Date End Date Asad Victor MD [address] [place] [id number] PCP - General 10/07/22 documented as of this encounter
--- OUTSIDE RECORDS SUMMARY | 2024-11-06 10:47 | XMS_ITS | Encounter Summary ---
Author Organization Healthcare Address [address] [place] [address] Care Team Providers Care Mold Unloader Name Role Phone Asad Victor MD Primary Care Provider + [phone] Reason for Visit * Auth/Cert (Routine) Specialty Diagnoses / Procedures Referred By Contac t Referred To Contact Diagnoses Wound infection Post-op Vasc Sx wounds - sx on 10/17 at Nathaly Nowak MD [address] [facility] [address] [place] [address] Phone: tel: fax: [facility] Emergency Department [address] [place] [address] Phone: tel: Referral ID Status Reason Start Date Expiration Date Visits Re quested Visits Authorized [id number] 1 1 Encounter Details Date Type Department Care Team (Late st Contact Info) Description 11/06/2024 10:47 AM EDT Anesthesia Event [facility] OPERATING ROOM [address] [place] [address] Bill Sue MD [address] [place] [address] Sabrina Mckeon PA [address] [facility] [address] [place] [address] Anesthesia Record Procedure Summary Procedure [...] time in the past 12 m [facility], were you homeless or living in [...] drink first t dino in the morning (EYE-ENGINEER EXHAUSTER) to steady your nerves or to get rid of a hangover? 0 10/18/2021 CAGE Questionnaire Score 0 022 Utilities Answer Date Recorded In the past 12 months has th e [employer], gas, oil, or water company threatened to [...] - 11/06/2024 12:11 PM EDT Patient: Mono oBbby Anesthesia Type: general Vitals Value Taken Time [...] and Staff Patient location during procedure: OR INDUSTRIAL RETROFIT DESIGNER: Asad Lechuga CRNA, DNP Performed: INDUSTRIAL RETROFIT DESIGNER Patient Condition Indications for airway management: anesthesia [...] / [place] OR Surgeons: Nathaly Nowak MD [facility] Mono Bobby is a 64 y.o. male [...] Abnormal Ventricular Rate 85 Atrial Rate 85 [place] Interval 146 QRSD Interval 128 QT Interval 390 QTC Interval 464 P [place] 52 R [place] 263 T Wave [place] 57 Diagnosis Atrial-sensed ventricular-paced rhythm Diagnosis Biventricular [...] is no recent study available for direct zxfu-ko-suoa comparison. [facility]: Pre-operative CIED Report Assessment and Sara- Procedural Reommendations: Name: Mono Bobby Date: 10/17/2024 : 1960 Age: 64 y.o. Patient has a Software Solutions Architect: Berger MANAGER PRACTICE-PM Remaining battery longevity adequate. Lead integrity test [...] RVR s/p CABG), CAD (CAD s/p multiple [place]'s and 3V CABG02/2019, 2 stents prior to CABG), carotid artery disease (carotid artery disease s/p R CEA 2016), dysrhythmias (3rd degree AV block MANAGER PRACTICE-P placed 08/2023 for Wenkeback with 11 sec pause), hyperlipidemia, pacemaker and PVD. Does not have angina, CHF, murmur, orthopnea, syncope or valvular heart disease. hypertension: Cardio additional comments: Follows with OSH Card last seen 09/25/24 ([place]) . Respiratory: home oxygen (2L). no asthma: [...] ENDARTERECTOMY N/A 2017 Endarterectomy Carotid Artery from [employer] CORONARY ANGIOPLASTY Left Coronary Angiography With Concomitant Left Heart Catheterization from [employer] CORONARY ARTERY BYPASS GRAFT N/A 2018 3V ELBOW SURGERY Right ENDARTERECTOMY Left 10/17/2024 common/SFA/Profunda thromboendarterectomy, EIA/TITLE I ASSISTANT stent HERNIA REPAIR KNEE ARTHROSCOPY Left VASCULAR SURGERY Left 09/21/2024 TITLE I ASSISTANT pseudoaneurym injection [5] Social History Tobacco Use [...] [facility] [address] [place] [address] 12/19/2024 8:00 AM EDT Appointment [facility] [address] [place] [address] 12/19/2024 9:00 AM EDT Office Visit [facility] [address] [place] [address] Nathaly Nowak MD [address] [facility] [address] [place] [address] documented as of this encounter Goals Goal Patient Goal Type Associated Problems Recent Progress Patient-Stated? Author Autogenera louise Goal Care Plan Autogenerated Problem No Ekta Arnett documented as of this encounter Procedures Procedure Name Priority Date/Time Associated Diagnosis Comments PB ANESTHESIA PLACEHOLDER Routine 11/06/2024 10:58 AM EDT IL AN ELECTIVE ENDOTRACHEAL AIRWAY Routine 11/06/2024 10:58 AM EDT documented in this encounter Results * IL AN ELECTIVE ENDOTRACHEAL AIRWAY, PB ANESTHESIA PLACEHOLDER (11/06/2024 10:58 AM EDT) Narrative Asad Lechuga CRNA, DNP - 11/06/2024 10:58 AM EDT Asad Lechuga CRNA, DNP 11/06/2024 11:05 AM Airway Date/Time: 11/06/2024 10:58 AM Reason: elective Airway not difficult General Information and Staff Patient location during procedure: OR INDUSTRIAL RETROFIT DESIGNER: Asad Lechuga CRNA, DNP Performed: INDUSTRIAL RETROFIT DESIGNER Patient Condition Indications for airway management: anesthesia [...] documented as of this encounter Care Teams Mold Unloader Relationship Specialty Start Date End Date Asad Victor MD [address] [place], [place] [id number] PCP - General 10/07/22 documented as of this encounter
--- OUTSIDE RECORDS SUMMARY | 2024-11-18 13:10 | XMS_ITS | Encounter Summary ---
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); Localized tissue (HCC); Other specified local infections of the skin and subcutaneous tissue; Diabetes mellitus with skin ulcer (HCC) Social History Tobacco Use Types Packs/Day Years Used Date Smoking Tobacco: Former Cigarettes Q uit: 03/27/2016 Smokeless Tobacco: Never Tobacco Cessation:Counseling Given: Not Answered Sex and Gender Information Value Date Recorded Sex Assigned at Not on file Legal Sex Male 1:35 PM CDT Gender Identity Not on file Sexual Orientation Not on file documented as of this encounter Last Filed Vital Signs Vital Sign Reading Time Taken Comments Blood Pressure 133/85 11/18/2024 2:41 PM EDT Pulse 68 11/18/2024 2:41 PM EDT Temperature 36.2 C (97.1 F) 11/18/2024 2:41 PM EDT Respiratory Rate 20 11/18/2024 2:41 PM EDT Oxygen Saturation - - Inhaled Oxygen Concentration - - Weight 89.8 kg (198 lb) 11/18/2024 2:41 PM EDT Height 170.2 cm (5' 7 ) 11/18/2024 2:41 PM EDT Body Mass Index 31.01 11/18/2024 2:41 PM EDT documented in this encounter Patient Instructions * Patient Instructions* Nallely Sky RN - 11/18/2024 1:10 PM EDT If your wound vac is not working and you can not restart after placing new wound vac tape around wound then remove all the wound vac foam and place saline moist guaze in the wound then dry guaze and tape in place. Change this every 12 hours and contact home health nurse( if you have home health) [facility] an appointment. documented in this encounter Progress Notes * Nallely Sky RN - 11/18/2024 1:10 PM EDT Images from the original note were not included. Attached media from the original note were not included. 11/18/24 1508 Wound 11/18/24 Groin Left Date First Assessed/Time First Assessed: 11/18/24 1508 Wound Approximate Age at First Assessment (Weeks): 4 weeks Location: Groin Wound Location Orientation: Left Wound Image Images linked Site Assessment Granulation;Sloughing Saar-Wound Assessment Scarred Wound Length (cm) 7 cm Wound Width (cm) 6.2 cm Wound Surface Area (cm^2) 43.4 cm^2 Wound Depth (cm) 6 cm Wound Volume (cm^3) 260.4 cm^3 Margins Well-defined edges Drainage Description Serous Drainage Amount Large Odor None Wound Bed Granulation (%) 70 % Wound Bed Slough (%) 30 % Non-staged Wound Description Full thickness * Nallely Sky RN - 11/18/2024 1:10 PM EDT Images from the original note were not included. Attached media from the original note were not included. 11/18/24 1506 Wound 11/18/24 Leg upper Left;Medial Date First Assessed/Time First Assessed: 11/18/24 1505 Wound Approximate Age at First Assessment (Weeks): 4 weeks Location: Leg upper Wound Location Orientation: Left;Medial Wound Image Images linked Site Assessment Granulation;Sloughing Sara-Wound Assessment Scarred Wound Length (cm) 6.9 cm Wound Width (cm) 2.2 cm Wound Surface Area (cm^2) 15.18 cm^2 Wound Depth (cm) 2.1 cm Wound Volume (cm^3) 31.878 cm^3 Margins Well-defined edges Drainage Description Serous Drainage Amount Large Odor None Wound Bed Granulation (%) 90 % Wound Bed Slough (%) 10 % Non-staged Wound Description Full thickness * Nallely Sky RN - 11/18/2024 1:10 PM EDT 1 piece of white foam and 1 pice of silver foam removed from left groin KCI NPWT ans 1 piece of silver foam removed from upper medial left leg. After Dressings removed Below orders followed and patient tolerated procedures well. Remove dressings. Clean wound with 0.9 % normal saline.. Apply 4 % or 5% topical lidocaine as needed for pain Skin barrier film to sara wounds and window pane AND may use eakins as needed Wound site- left groin Primary- black ( 2 pieces used)and NPWT at 125mmhg continous Change-3x week Wound site left upper medial leg Primary- white foam (1 used) in wound base then black foam( 1 used) and NPWT at 125 mmhg continous Change 3x week Y connector to connect both wounds POC- Return appt.-Monday and Monday non provider visit and then next Monday provider visit IF DME ordered send supplies to fit size of wound Education-If your wound vac is not working and you can not restart after placing new wound vac tapearound wound then remove all the wound vac foam and place saline moist guaze in the wound then dry guaze and tape in place. Change this every 12 hours and contact home health nurse( if you have home health) or wound center for an appointment. * Nallely Sky RN - 11/18/2024 1:10 PM EDT 11/18/24 1708 Negative Pressure Wound Therapy Groin Left Placement Date/Time: 11/18/24 1707 Location: Groin Wound Location Orientation: Left Unit Type Kci Type of Foam Applied Black foam Number of Foam Pieces Used 2 Type of Foam Pieces Removed Silver foam;White foam Number of Foam Pieces Removed (1 white 1 black) Cycle Continuous Target Pressure (mmHg) 125 Intensity High Canister Changed Yes * Nallely Sky RN - 11/18/2024 1:10 PM EDT 11/18/24 1711 Negative Pressure Wound Therapy Leg Left Placement Date/Time: 11/18/24 1710 Location: Leg Wound Location Orientation: Left Unit Type Kci Type of Foam Applied Black foam;White foam Number of Foam Pieces Used (1 black 1 white) Type of Foam Pieces Removed Silver impregnated Number of Foam Pieces Removed 1 Cycle Continuous Target Pressure (mmHg) 125 Canister Changed Yes * Jerry Monroe Jr., MD - 11/18/2024 1:10 PM EDTAssociated Order(s): Debridement; Debridement Subjective 11/18/24 - CJA -this is a gentleman who comes in today with 2 wounds of his left groin and left upper leg. Patient was admitted to the [facility] on November 05, 2024 and dischargedon November 14, 2024, 4 days ago. He presented with a surgical infection status post left femoral endarterectomy with external iliac and common femoral artery stenting that occurred in late September. Patient was started on IV antibiotics and taken to the OR for excisional debridement of his left groin and left leg. Patient grew Enterobacter. Ultimately a wound VAC was placed a week ago over both wound sites. He was discharged with a PICC line. Patient is getting daily infusions at [facility] through his PICC line for antibiotics. He is here today for wound VAC change and management of the wound sites. Looks like he was placed on ertapenem and micafungin. It looks like patient is also an insulin-dependent diabetic. Hemoglobin A1c during hospitalization was 7.6. Patient's renal fun ction looks appropriate. He presents today with 2 fairly large heavily draining wounds of his groinand leg. There is muscular tissue at the base of them that is necrotic. Thorough debridement was medically necessary. Wounds without any surrounding erythema periwound maceration nor odor associated. Review of Systems Constitutional: Negative for fatigue and fever. Respiratory: Negative for cough and shortness of breath. Gastrointestinal: Negative for abdominal pain. Genitourinary: Negative for dysuria. Skin: Positive for wound. Negative for rash. Objective Last Recorded Vitals Blood pressure 133/85, pulse 68, temperature 97.1 ??F (36.2 ??C), resp. rate 20, height 1.702 m (5'7 ), weight 89.8 kg (198 lb). Physical Exam Constitutional: Appearance: Normal appearance. Musculoskeletal: Right lower leg: No edema. Left lower leg: No edema. Skin: Findings: No erythema. Comments: Today wounds violate both epidermis and dermis layers of skin, wounds have exposed subcutaneous layer and fat layer is exposed. There is necrotic muscle and fascia associated with the wounds. There are areas of necrotic tissue, localized gangrene tissue and biofilm present. Surgical removal of nonviable gangrenous tissue and biofilm infection material is medically necessary and needed to promote healing Neurological: General: No focal deficit present. Mental Status: He is alert and oriented to person, place, and time. Psychiatric: Mood and Affect: Mood normal. Behavior: Behavior normal. Judgment: Judgment normal. Labs: No results found for this visit on 11/18/24 (from the past 24 hours). No image results found. Mono was seen today for wound care. 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 male. Debridement Wound 11/18/24 Leg upper Left;Medial Performed by: Jerry Monroe Jr., MD Authorized by: Jerry Monroe Jr., MD Consent Consent obtained? written Consent given by: patient Risks discussed? procedural risks discussed Immediately prior to the procedure a time out was called and the performing provider verified the correct patient, procedure, equipment, shipping support clerk, and site/side marked as required. Debridement Details Performed by: physician Debridement type: surgical Level of debridement: muscle Pain control: lidocaine 2% Pain control administration type: topical Pre-debridement measurements Length (cm): 6.9 Width (cm): 2.2 Depth (cm): 2.1 Surface Area (cm^2): 15.18 Post-debridement measurements Length (cm): 6.9 Width (cm): 2.2 Depth (cm): 2.2 Percent debrided: 100% Surface Area (cm^2): 15.18 Area Debrided (cm^2): 15.18 Volume (cm^3): 33.4 Tissue and other material debrided: adipose, dermis, epidermis, fascia, muscle and subcutaneous tissue Devitalized tissue debrided: biofilm, fibrin, necrotic debris and slough Instrument(s) utilized: curette, forceps and scissors Bleeding: small Hemostasis obtained with: pressure Procedural pain (0-10): 4 Post-procedural pain: 2 Response to treatment: procedure was tolerated well Debridement Wound 11/18/24 Groin Left Performed by: Jerry Monroe Jr., MD Authorized by: Jerry Monroe Jr., MD Consent Consent obtained? written Consent given by: patient Risks discussed? procedural risks discussed Immediately prior to the procedure a time out was called and the performing provider verified the correct patient, procedure, equipment, shipping support clerk, and site/side marked as required. Debridement Details Performed by: physician Debridement type: surgical Level of debridement: muscle Pain control: lidocaine 2% Pain control administration type: topical Pre-debridement measurements Length (cm): 7 Width (cm): 6.2 Depth (cm): 6 Surface Area (cm^2): 43.4 Post-debridement measurements Length (cm): 7 Width (cm): 6.2 Depth (cm): 6.1 Percent debrided: 100% Surface Area (cm^2): 43.4 Area Debrided (cm^2): 43.4 Volume (cm^3): 264.74 Tissue and other material debrided: adipose, dermis, epidermis, fascia, muscle and subcutaneous tissue Devitalized tissue debrided: biofilm, fibrin and slough Instrument(s) utilized: curette, scissors and forceps Bleeding: small Hemostasis obtained with: pressure Procedural pain (0-10): 4 Post-procedural pain: 2 Response to treatment: procedure was tolerated well documented in this encounter Plan of Treatment Upcoming Encounters Date Type Department Care Team (Late st Contact Info) Description 12/16/2024 3:30 PM EDT Clinical Support [facility] [address] [place] [address] 12/18/2024 3:00 PM EDT Office Visit [address] [phone] Jerry Monroe Jr., MD [address] [place] [phone] 12/20/2024 3:30 PM EDT Clinical Support [facility] [address] [place] [address] documented as of this encounter Procedures Procedure Name Priority Date/Time Associated Diagnosis Comments IN DEBRIDEMENT MUSCLE &/FASCIA EA ADDL 20 SQ CM Routine 11/18/2024 1:10 PM EDT 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) Localized tissue (HCC) Other specified local infections of the skin and subcutaneous tissue IN DEBRIDEMENT MUSCLE &/FASCIA EA ADDL 20 SQ CM Routine 11/18/2024 1:10 PM EDT 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) Localized tissue (HCC) Other specified local infections of the skin and subcutaneous tissue IN DEBRIDEMENT MUSCLE &/FASCIA 1ST 20 SQ CM/< Routine 11/18/2024 1:10 PM EDT 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) Localized tissue (HCC) Other specified local infections of the skin and subcutaneous tissue IN DEBRIDEMENT MUSCLE &/FASCIA EA ADDL 20 SQ CM Routine 11/18/2024 1:10 PM EDT 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) Localized tissue (HCC) Other specified local infections of the skin and subcutaneous tissue IN DEBRIDEMENT MUSCLE &/FASCIA EA ADDL 20 SQ CM Routine 11/18/2024 1:10 PM EDT 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) Localized tissue (HCC) Other specified local infections of the skin and subcutaneous tissue IN DEBRIDEMENT MUSCLE &/FASCIA 1ST 20 SQ CM/< Routine 11/18/2024 1:10 PM EDT 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 written Consent given by: patient Risks discussed? procedural risks discussed Immediately prior to the procedure a time out was called and the performing provider verified the correct patient, procedure, equipment, shipping support clerk, and site/side marked as required. Debridement Details Performed by: physician Debridement type: surgical Level of debridement: muscle Pain control: lidocaine 2% Pain control administration type: topical Pre-debridement measurements Length (cm): 7 Width (cm): 6.2 Depth (cm): 6 Surface Area (cm^2): 43.4 Post-debridement measurements Length (cm): 7 Width (cm): 6.2 Depth (cm): 6.1 Percent debrided: 100% Surface Area (cm^2): 43.4 Area Debrided (cm^2): 43.4 Volume (cm^3): 264.74 Tissue and other material debrided: adipose, dermis, epidermis, fascia, muscle and subcutaneous tissue Devitalized tissue debrided: biofilm, fibrin and slough Instrument(s) utilized: curette, scissors and forceps Bleeding: small Hemostasis obtained with: pressure Procedural pain (0-10): 4 Post-procedural pain: 2 Response to treatment: procedure was tolerated well us Jerry Monroe Jr., MD PROCEDURE/MINOR SURGICAL ORDERABLES Final Result * IN DEBRIDEMENT MUSCLE &/FASCIA 1ST 20 SQ CM/<, IN DEBRIDEMENT MUSCLE &/FASCIA EA ADDL 20SQ CM, IN DEBRIDEMENT MUSCLE &/FASCIA EA ADDL 20 SQ CM (11/18/2024 1:10 PM EDT) Jerry Littlejohn Jr., MD - 11/18/2024 1:10 PM EDT Jerry Monroe Jr., MD 11/18/2024 7:48 PM Debridement Wound 11/18/24 Leg upper Left;Medial Performed by: Jerry Monroe Jr., MD Authorized by: Jerry Monroe Jr., MD Consent Consent obtained? written Consent given by: patient Risks discussed? procedural risks discussed Immediately prior to the procedure a time out was called and the performing provider verified the correct patient, procedure, equipment, shipping support clerk, and site/side marked as required. Debridement Details Performed by: physician Debridement type: surgical Level of debridement: muscle Pain control: lidocaine 2% Pain control administration type: topical Pre-debridement measurements Length (cm): 6.9 Width (cm): 2.2 Depth (cm): 2.1 Surface Area (cm^2): 15.18 Post-debridement measurements Length (cm): 6.9 Width (cm): 2.2 Depth (cm): 2.2 Percent debrided: 100% Surface Area (cm^2): 15.18 Area Debrided (cm^2): 15.18 Volume (cm^3): 33.4 Tissue and other material debrided: adipose, dermis, epidermis, fascia, muscle and subcutaneous tissue Devitalized tissue debrided: biofilm, fibrin, necrotic debris and slough Instrument(s) utilized: curette, forceps and scissors Bleeding: small Hemostasis obtained with: pressure Procedural pain (0-10): 4 Post-procedural pain: 2 Response to treatment: procedure was tolerated well Jerry Monroe Jr., MD PROCEDURE/MINOR SURGICAL ORDERABLES Final Result documented in this encounter Visit Diagnoses Diagnosis 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
--- OUTSIDE RECORDS SUMMARY | 2024-11-20 14:15 | XMS_ITS | Encounter Summary ---
Author Organization [employer] ([place], [place], [place], [place]) Address [address] [place] [address] Care Team Providers Care Physical Security Specialist Name Role Phone Unavailable Primary Care Provider Unavailabl e Reason for Visit * Reason Comments Wound Care Nurse visit for woun d vac change, wound care and dressing change Encounter Details Date Type Department Care Team (Late st Contact Info) Description 11/20/2024 2:15 PM EDT Clinical Support [facility] 1 [place] [address] Jerry Monroe Jr., MD [address] [place] [address] Non-pressure chronic ulcer of skin of [...] Description 12/16/2024 3:30 PM EDT Clinical Support [facility] [place] 1 [place] [address] 12/18/2024 3:00 PM EDT Office Visit [facility] 1 [place] [address] Jerry Monroe Jr., MD [address] [place] [address] 12/20/2024 3:30 PM EDT Clinical Support [facility] 1 [place] [address] documented as of this encounter Results * Wound Treatment (11/22/2024 5:14 PM EDT) us Jerry Monroe Jr., MD NURSING PATHWAYS ORDERABL ES Final Result documented in this encounter Visit Diagnoses Diagnosis 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
--- OUTSIDE RECORDS SUMMARY | 2024-11-22 16:15 | XMS_ITS | Encounter Summary ---
Author Organization [employer] ([place], [place], [place], [place]) Address [address] [place] [address] Care Team Providers Care Bag Making Machine Operator Name Role Phone Unavailable Primary Care Provider Unavailabl e Reason for Visit * Reason Comments Wound Care Encounter Details Date Type Department Care Team (Late st Contact Info) Description 11/22/2024 4:15 PM EDT Clinical Support [facility] 1 [place] [address] Jerry Monroe Jr., MD [address] [place] [address] Non-pressure chronic ulcer of skin of [...] Description 12/16/2024 3:30 PM EDT Clinical Support [facility] [place] 1 [place] [address] 12/18/2024 3:00 PM EDT Office [facility] 1 [place] [address] Jerry Monroe Jr., MD [address] [place] [address] 12/20/2024 3:30 PM EDT Clinical Support [facility] [place] 1 [place] [address] documented as of this encounter Procedures Procedure [...]
--- OUTSIDE RECORDS SUMMARY | 2024-11-27 14:20 | XMS_ITS | Encounter Summary ---
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 Patient was admitted to the [facility] on November 05, 2024 and dischargedon November [...] provider verified the correct patient, procedure, equipment, data support specialist, and site/side marked as required. [...] provider verified the correct patient, procedure, equipment, data support specialist, and site/side marked as required. 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) Localized tissue (HCC) Other specified local infections of the skin and subcutaneous tissue NM DEBRIDEMENT MUSCLE &/FASCIA EA ADDL 20 SQ CM Routine 11/27/2024 2:20 PM EDT 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) Localized tissue (HCC) Other specified local infections of the skin and subcutaneous tissue NM DEBRIDEMENT MUSCLE &/FASCIA 1ST 20 SQ CM/< Routine 11/27/2024 2:20 PM EDT 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) Localized tissue (HCC) Other specified local infections of the skin and subcutaneous tissue NM DEBRIDEMENT MUSCLE &/FASCIA EA ADDL 20 SQ CM Routine 11/27/2024 2:20 PM EDT 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) Localized tissue (HCC) Other specified local infections of the skin and subcutaneous tissue NM DEBRIDEMENT MUSCLE &/FASCIA EA ADDL 20 SQ CM Routine 11/27/2024 2:20 PM EDT 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) Localized tissue (HCC) Other specified local infections of the skin and subcutaneous tissue NM DEBRIDEMENT MUSCLE &/FASCIA 1ST 20 SQ CM/< Routine 11/27/2024 2:20 PM EDT 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 [...] MD PROCEDURE/MINOR SURGICAL ORDERABLES Final Result * NM DEBRIDEMENT MUSCLE &/FASCIA 1ST 20 SQ CM/<, NM DEBRIDEMENT MUSCLE &/FASCIA EA ADDL 20SQ CM, NM DEBRIDEMENT MUSCLE &/FASCIA EA ADDL 20 SQ [...] provider verified the correct patient, procedure, equipment, data support specialist, and site/side marked as required. [...]
--- OUTSIDE RECORDS SUMMARY | 2024-11-29 16:00 | XMS_ITS | Encounter Summary ---
Author Organization [employer] ([place], [place], [place], [place]) Address [address] [place] [address] Care Team Providers Care Nonprofit Manager Name Role Phone Unavailable Primary Care Provider Unavailabl e Reason for Visit * Reason Comments Wound Care Encounter Details Date Type Department Care Team (Late st Contact Info) Description 11/29/2024 4:00 PM EDT Clinical Support [facility] 1 [place] [address] Jerry Monroe Jr., MD [address] [place] [address] Social History Tobacco Use Types Packs/Day [...] health nurse( if you have home health) [facility] * Nallely Sky [...] Description 12/16/2024 3:30 PM EDT Clinical Support [facility] 1 [place] [address] 12/18/2024 3:00 PM EDT Office Visit [facility] 1 [place] [address] Jerry Monroe Jr., MD [address] [place] [address] 12/20/2024 3:30 PM EDT Clinical Support [facility] 1 [place] [address] documented as of this encounter Visit Diagnoses Not on filedocumented in this encounter
--- OUTSIDE RECORDS SUMMARY | 2024-12-02 14:15 | XMS_ITS | Encounter Summary ---
Author Organization [employer] ([place], [place], [place], [place]) Address [address] [place] [address] Care Team Providers Care Wire Threader Name Role Phone Unavailable Primary Care Provider Unavailabl e Reason for Visit * Reason Comments Wound Care Nurse visit for woun d vac and dressing change, wound care Encounter Details Date Type Department Care Team (Late st Contact Info) Description 12/02/2024 2:15 PM EDT Clinical Support [facility] 1 [place] [address] Jerry Monroe Jr., MD [address] [place] [address] Non-pressure chronic ulcer of skin of [...] Description 12/16/2024 3:30 PM EDT Clinical Support [facility] [place] 1 [place] [address] 12/18/2024 3:00 PM EDT Office Visit [facility] [place] 1 [place] [address] Jerry Monroe Jr., MD [address] [place] [address] 12/20/2024 3:30 PM EDT Clinical Support [facility] [place] 1 [place] [address] documented as of this encounter Visit Diagnoses Diagnosis 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
--- OUTSIDE RECORDS SUMMARY | 2024-12-04 13:40 | XMS_ITS | Encounter Summary ---
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) Procedures Wound Treatment Jerry Monroe Jr., MD [address] [place] [phone] Phone: tel: fax: Referral ID Status Reason Start Date Expiration Date V isits Requested Visits Authorized [id number] Pending Review 12/04/2024 12/04/2025 3 3 Reason for Visit * Reason Comments Wound Care Encounter Details Date Type Department Care Team (Late st Contact Info) Description 12/04/2024 1:40 PM EDT Office Visit [facility] [address] [place] [address] Jerry Monroe Jr., MD [address] [place] [phone] Non-pressure chronic ulcer of skin of [...] on file documented as of this encounter Patient Instructions * Patient Instructions* Melissa Hernandez RN - 12/04/2024 1:40 PM EDT wound care at home: Leave your dressings in place Keep clean and dry until next visit signs and symptoms of infection to include: Increased redness, warmth or drainage with odor, or fever. call wound center for any concerns Call 911 or go to the ER with an emergency documented in this encounter Progress Notes * Melissa Hernandez RN - 12/04/2024 1:40 PM EDT Images from the original note were not included. Attached media from the original note were not included. 12/04/24 1341 Wound 11/18/24 Leg upper Left;Medial Date First Assessed/Time First Assessed: 11/18/24 1505 Wound Approximate Age at First Assessment (Weeks): 4 weeks Location: Leg upper Wound Location Orientation: Left;Medial Wound Image Images linked Site Assessment Granulation;Sloughing Sara-Wound Assessment Scarred Wound Length (cm) 3.9 cm Wound Width (cm) 0.8 cm Wound Surface Area (cm^2) 2.45 cm^2 Wound Depth (cm) 3.2 cm Wound Volume (cm^3) 5.228 cm^3 Margins Well-defined edges Wound Healing % 84 Drainage Description Serosanguineous Drainage Amount Large Odor None Wound Bed Granulation (%) 90 % Wound Bed Slough (%) 10 % Non-staged Wound Description Full thickness * Melissa Hernandez RN - 12/04/2024 1:40 PM EDT Images from the original note were not included. Attached media from the original note were not included. 12/04/24 1336 Wound 11/18/24 Groin Left Date First Assessed/Time First Assessed: 11/18/24 1508 Wound Approximate Age at First Assessment (Weeks): 4 weeks Location: Groin Wound Location Orientation: Left Wound Image Images linked Site Assessment Granulation;Sloughing Sara-Wound Assessment Scarred Wound Length (cm) 6.2 cm Wound Width (cm) 6 cm Wound Surface Area (cm^2) 29.22 cm^2 Wound Depth (cm) 3.5 cm Wound Volume (cm^3) 68.173 cm^3 Tunneling 0.9 cm Tunneling Clock Position of Wound 10 Margins Well-defined edges Wound Healing % 74 Drainage Description Serosanguineous Drainage Amount Copious Odor None Wound Bed Granulation (%) 60 % Wound Bed Slough (%) 40 % Non-staged Wound Description Full thickness * Jerry Monroe Jr., MD - 12/04/2024 1:40 PM EDTAssociated Order(s): Debridement; Debridement Post-Procedure Diagnose(s): 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 Both wounds are improved today. They are getting smaller. A thorough muscular debridement was medically necessary at both sites today due to slough and other nonviable tissue present on the surface of the wound beds. Wounds without any surrounding erythema induration odor nor periwoundmaceration. Will continue on with current regimen. 11/27/24 -patient returns to the wound care center [...] treatment as it is working. 11/18/24 - -this is a gentleman who comes in today with 2 wounds of his left groin and left upper leg. Patient was admitted to the [facility] on November 05, 2024 and [...] line. Patient is getting daily infusions at [facility] through his PICC line for [...] Objective Last Recorded Vitals Blood pressure (!) (P) 168/68, pulse (P) 66, temperature (P) 97.7 ??F (36.5 ??C), resp. rate (P) 17. Physical Exam Constitutional: Appearance: Normal appearance. Musculoskeletal: [...] No results found for this visit on 12/04/24 (from the past 24 hours). No image results found. Mono was seen today for wound care. 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 male. Debridement Wound 11/18/24 Leg upper Left;Medial Performed by: Jerry Monroe Jr., MD Authorized by: Jerry Monroe Jr., MD Consent Consent obtained? written Consent given by: patient Risks discussed? procedural risks discussed Immediately prior to the procedure a time out was called and the performing provider verified the correct patient, procedure, equipment, legal support analyst, and site/side marked as required. Debridement Details Performed by: physician Debridement type: surgical Level of debridement: muscle Pain control: lidocaine 2% Pain control administration type: topical Pre-debridement measurements Length (cm): 3.9 Width (cm): 0.8 Depth (cm): 3.2 Surface Area (cm^2): 2.45 Post-debridement measurements Length (cm): 4 Width (cm): 0.9 Depth (cm): 3.3 Percent debrided: 100% Surface Area (cm^2): 2.83 Area Debrided (cm^2): 2.83 Volume (cm^3): 6.22 Tissue and other material debrided: adipose, dermis, epidermis, fascia, muscle and subcutaneous tissue Devitalized tissue debrided: biofilm, fibrin and slough Instrument(s) utilized: curette Bleeding: small Hemostasis obtained with: pressure Procedural [...] the correct patient, procedure, equipment, legal support analyst, and site/side marked as required. Debridement Details Performed by: physician Debridement type: surgical Level of debridement: muscle Pain control: lidocaine 2% Pain control administration type: topical Pre-debridement measurements Length (cm): 6.2 Width (cm): 6 Depth (cm): 3.5 Surface Area (cm^2): 29.22 Post-debridement measurements Length (cm): 6.3 Width (cm): 6.1 Depth (cm): 4 Percent debrided: 100% Surface Area (cm^2): 30.18 Area Debrided (cm^2): 30.18 Volume (cm^3): 80.49 Tissue and other material debrided: adipose, dermis, epidermis, fascia, muscle and subcutaneous tissue Devitalized tissue debrided: biofilm, fibrin and slough Instrument(s) utilized: curette Bleeding: small Hemostasis obtained with: pressure Procedural pain (0-10): 2 Post-procedural pain: 1 Response to treatment: procedure was tolerated well * Melissa Hernandez RN - 12/04/2024 1:40 PM EDT Pt here for a follow-up wound care provider visit. Removed pt's previously ordered dressings from left groin and left leg. Orders below followed for wound [...] in one week for follow up appointment. Use above orders for all non-provider visits. Plan of Care: Follow up provider visit in 1 week [...] Description 12/16/2024 3:30 PM EDT Clinical Support [facility] [address] [place] [phone] 12/18/2024 3:00 PM EDT Office Visit [facility] 1 [place] [phone] Jerry Monroe Jr., MD [address] [place] [phone] 12/20/2024 3:30 PM EDT Clinical Support [facility] [address] [place] [phone] documented as of this encounter Procedures Procedure Name Priority Date/Time Associated Diagnosis Comments IL DEBRIDEMENT MUSCLE &/FASCIA EA ADDL 20 SQ CM Routine 12/04/2024 1:40 PM EDT 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) Localized tissue (HCC) Other specified local infections of the skin and subcutaneous tissue IL DEBRIDEMENT MUSCLE &/FASCIA 1ST 20 SQ CM/< Routine 12/04/2024 1:40 PM EDT 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) Localized tissue (HCC) Other specified local infections of the skin and subcutaneous tissue IL DEBRIDEMENT MUSCLE &/FASCIA EA ADDL 20 SQ CM Routine 12/04/2024 1:40 PM EDT 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) Localized tissue (HCC) Other specified local infections of the skin and subcutaneous tissue IL DEBRIDEMENT MUSCLE &/FASCIA 1ST 20 SQ CM/< Routine 12/04/2024 1:40 PM EDT 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) Localized tissue (HCC) Other specified local infections of the skin and subcutaneous tissue documented in this encounter Results * Wound Treatment (12/13/2024 1:49 PM EDT) us Jerry Monroe Jr., MD NURSING PATHWAYS ORDERABL ES Final Result * Wound Treatment (12/09/2024 5:03 PM EDT) us Jerry Monroe Jr., MD NURSING PATHWAYS ORDERABL ES Final Result * IL DEBRIDEMENT MUSCLE &/FASCIA 1ST 20 SQ CM/<, [place] DEBRIDEMENT MUSCLE &/FASCIA EA ADDL 20SQ CM (12/04/2024 1:40 PM EDT) Jerry Littlejohn Jr., MD - 12/04/2024 1:40 PM EDT Jerry Monroe Jr., MD 12/04/2024 4:18 PM Debridement Wound 11/18/24 Groin Left Performed by: Jerry Monroe Jr., MD Authorized by: Jerry Monroe Jr., MD Consent Consent obtained? written Consent given by: patient Risks discussed? procedural risks discussed Immediately prior to the procedure a time out was called and the performing provider verified the correct patient, procedure, equipment, legal support analyst, and site/side marked as required. Debridement Details Performed by: physician Debridement type: surgical Level of debridement: muscle Pain control: lidocaine 2% Pain control administration type: topical Pre-debridement measurements Length (cm): 6.2 Width (cm): 6 Depth (cm): 3.5 Surface Area (cm^2): 29.22 Post-debridement measurements Length (cm): 6.3 Width (cm): 6.1 Depth (cm): 4 Percent debrided: 100% Surface Area (cm^2): 30.18 Area Debrided (cm^2): 30.18 Volume (cm^3): 80.49 Tissue and other material debrided: adipose, dermis, epidermis, fascia, muscle and subcutaneous tissue Devitalized tissue debrided: biofilm, fibrin and slough Instrument(s) utilized: curette Bleeding: small Hemostasis obtained with: pressure Procedural pain (0-10): 2 Post-procedural pain: 1 Response to treatment: procedure was tolerated well us Jerry Monroe Jr., MD PROCEDURE/MINOR SURGICAL ORDERABLES Final Result * IL DEBRIDEMENT MUSCLE &/FASCIA 1ST 20 SQ CM/<, [place] DEBRIDEMENT MUSCLE &/FASCIA EA ADDL 20SQ CM (12/04/2024 1:40 PM EDT) Jerry Littlejohn Jr., MD - 12/04/2024 1:40 PM EDT Jerry Monroe Jr., MD 12/04/2024 4:18 PM Debridement Wound 11/18/24 Leg upper Left;Medial Performed by: Jerry Monroe Jr., MD Authorized by: Jerry Monroe Jr., MD Consent Consent obtained? written Consent given by: patient Risks discussed? procedural risks discussed Immediately prior to the procedure a time out was called and the performing provider verified the correct patient, procedure, equipment, legal support analyst, and site/side marked as required. Debridement Details Performed by: physician Debridement type: surgical Level of debridement: muscle Pain control: lidocaine 2% Pain control administration type: topical Pre-debridement measurements Length (cm): 3.9 Width (cm): 0.8 Depth (cm): 3.2 Surface Area (cm^2): 2.45 Post-debridement measurements Length (cm): 4 Width (cm): 0.9 Depth (cm): 3.3 Percent debrided: 100% Surface Area (cm^2): 2.83 Area Debrided (cm^2): 2.83 Volume (cm^3): 6.22 Tissue and other material debrided: adipose, dermis, epidermis, fascia, muscle and subcutaneous tissue Devitalized tissue debrided: biofilm, fibrin and slough Instrument(s) utilized: curette Bleeding: small Hemostasis obtained with: pressure Procedural [...]
--- OUTSIDE RECORDS SUMMARY | 2024-12-09 15:30 | XMS_ITS | Encounter Summary ---
Author Organization [employer] ([place], [place], [place], [place]) Address [address] [place] [address] Care Team Providers Care Contamination Consultant Name Role Phone Unavailable Primary Care Provider Unavailabl e Reason for Visit * Reason Comments Wound Care Encounter Details Date Type Department Care Team (Late st Contact Info) Description 12/09/2024 3:30 PM EDT Clinical Support [facility] 1 [place] [address] Jerry Monroe Jr., MD [address] [place] [address] Non-pressure chronic ulcer of skin of [...] EDT Clinical Support [facility] [place] 1 [place] [address] 12/18/2024 3:00 PM EDT Office Visit [address] [address] Jerry Monroe Jr., MD [address] [place] [address] 12/20/2024 3:30 PM EDT Clinical Support [address] [address] documented as of this encounter Procedures Procedure [...]
--- OUTSIDE RECORDS SUMMARY | 2024-12-11 14:40 | XMS_ITS | Encounter Summary ---
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) Procedures Wound Treatment Jerry Monroe Jr., MD [address] [place] [address] Phone: tel: fax: Referral ID Status Reason Start Date Expiration Date V isits Requested Visits Authorized [id number] New Request 12/11/2024 12/11/2025 1 1 Reason for Visit * Reason Comments Wound Care Encounter Details Date Type Department Care Team (Late st Contact Info) Description 12/11/2024 2:40 PM EDT Office Visit [facility] 1 [place] [address] Jerry Monroe Jr., MD [address] [place] [address] Non-pressure chronic ulcer of skin of [...] Sign Reading Time Taken Comments Blood Pressure 161/68 12/11/2024 2:43 PM EDT Pulse 78 12/11/2024 2:43 PM EDT Temperature 36.5 C (97.7 F) 12/11/2024 2:43 PM EDT Respiratory Rate 18 12/11/2024 2:43 PM EDT Oxygen Saturation - - Inhaled Oxygen Concentration - - Weight - - Height - - Body Mass Index - - documented in this encounter Patient Instructions * Patient Instructions* Neha White RN - 12/11/2024 2:40 PM EDT wound care at home: Leave your dressings in place Keep clean and dry until next visit signs and symptoms of infection to include: Increased redness, warmth or drainage with odor, or fever. call wound center for any concerns Call 911 or go to the ER with an emergency documented in this encounter Progress Notes * Neha White RN - 12/11/2024 2:40 PM EDT Images from the original note were not included. Attached media from the original note were not included. 12/11/24 1502 Wound 11/18/24 Leg upper Left;Medial Date First Assessed/Time First Assessed: 11/18/24 1505 Wound Approximate Age at First Assessment (Weeks): 4 weeks Location: Leg upper Wound Location Orientation: Left;Medial Wound Image Images linked Site Assessment Granulation;Sloughing Sara-Wound Assessment Scarred Wound Length (cm) 3 cm Wound Width (cm) 0.7 cm Wound Surface Area (cm^2) 1.65 cm^2 Wound Depth (cm) 1.5 cm Wound Volume (cm^3) 1.649 cm^3 Margins Well-defined edges Wound Healing % 95 Drainage Description Serosanguineous Drainage Amount Moderate Odor None Wound Bed Granulation (%) 50 % Wound Bed Slough (%) 50 % Non-staged Wound Description Full thickness * Neha White RN - 12/11/2024 2:40 PM EDT Images from the original note were not included. Attached media from the original note were not included. 12/11/24 1500 Wound 11/18/24 Groin Left Date First Assessed/Time First Assessed: 11/18/24 1508 Wound Approximate Age at First Assessment (Weeks): 4 weeks Location: Groin Wound Location Orientation: Left Wound Image Images linked Site Assessment Granulation;Sloughing Sara-Wound Assessment Scarred Wound Length (cm) 6.2 cm Wound Width (cm) 5.8 cm Wound Surface Area (cm^2) 28.24 cm^2 Wound Depth (cm) 4.5 cm Wound Volume (cm^3) 84.729 cm^3 Tunneling 2.5 cm Tunneling Clock Position of Wound 10 Margins Well-defined edges Wound Healing % 67 Drainage Description Sanguineous Drainage Amount Moderate Odor None Wound Bed Granulation (%) 75 % Wound Bed Slough (%) 25 % Non-staged Wound Description Full thickness * Neha White RN - 12/11/2024 2:40 PM EDT Pt here for a follow-up wound care provider visit. -Removed 1 piece of black foam from groin wound and 1 pieces of black foam and 1 piece of white foam from leg wound Wounds debrided per provider Orders followed as below Remove dressings. Clean wound with 0.9 % normal saline. May use Lidocaine 5% as needed for pain control during clinic appointments. Skin barrier film to sara wounds and window pane AND may use eakins or duoderm as needed Wound site- left groin Primary- 1 piece of white foam to tunnel and 1 piece of black foam and NPWT at 125mmhg continous Change-3x week Wound site left upper medial leg Primary- 1 piece of white foam in wound base and into tunnel at distal part of knee wound, then 1 piece of black foam and NPWT at 125 mmhg continous Change [...] working for more than 2 consecutive hours * Jerry Monroe Jr., MD - 12/11/2024 2:40 PM EDTAssociated Order(s): Debridement; Debridement Subjective 12/11/24 -patient returns to the wound care center today for management of his 2 wounds of hisabdomen and leg. Wounds today are improved. They are continuing to get more shallow and to fill-in and look less noticed necrotic. Muscular debridement was medically necessary both sites today due toslough and other nonviable tissue present on the surface of the wound beds. Wounds without any surrounding erythema, induration odor nor periwound maceration. Will continue with current regimen. Reviewed white foam regimen. 12/04/24 -patient returns to the wound care center [...] current treatment as it is working. 11/18/24 -this is a gentleman who comes in today with 2 wounds of his left groin and left upper leg. Patient was admitted to the [facility] on November 05, 2024 and [...] Objective Last Recorded Vitals Blood pressure (!) 161/68, pulse 78, temperature 97.7 ??F (36.5 ??C), temperature source Tympanic, resp. rate 18. Physical Exam Constitutional: Appearance: [...] No results found for this visit on 12/11/24 (from the past 24 hours). No image results found. Mono was seen today for wound care. 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 male. Debridement Wound 11/18/24 Leg upper Left;Medial Performed by: Jerry Monroe Jr., MD Authorized by: Jerry Monroe Jr., MD Consent Consent obtained? written Consent given by: patient Risks discussed? procedural risks discussed Immediately prior to the procedure a time out was called and the performing provider verified the correct patient, procedure, equipment, sales support advisor, and site/side marked as required. Debridement Details Performed by: physician Debridement type: surgical Level of debridement: muscle Pain control: lidocaine 2% Pain control administration type: topical Pre-debridement measurements Length (cm): 3 Width (cm): 0.7 Depth (cm): 1.5 Surface Area (cm^2): 1.65 Post-debridement measurements Length (cm): 3.1 Width (cm): 0.8 Depth (cm): 1.6 Percent debrided: 100% Surface Area (cm^2): 1.95 Area Debrided (cm^2): 1.95 Volume (cm^3): 2.08 Tissue and other material debrided: adipose, dermis, epidermis, fascia, ligament, muscle and subcutaneous tissue Devitalized tissue debrided: [...] the correct patient, procedure, equipment, sales support advisor, and site/side marked as required. Debridement Details Performed by: physician Debridement type: surgical Level of debridement: muscle Pain control: lidocaine 2% Pain control administration type: topical Pre-debridement measurements Length (cm): 6.2 Width (cm): 5.8 Depth (cm): 4.5 Surface Area (cm^2): 28.24 Post-debridement measurements Length (cm): 6.3 Width (cm): 5.9 Depth (cm): 4.6 Percent debrided: 100% Surface Area (cm^2): 29.19 Area Debrided (cm^2): 29.19 Volume (cm^3): 89.53 Tissue and other material debrided: adipose, dermis, [...] Description 12/16/2024 3:30 PM EDT Clinical Support [facility] [place] 1 [place] [address] 12/18/2024 3:00 PM EDT Office Visit [address] [address] Jerry Monroe Jr., MD [address] [place] [address] 12/20/2024 3:30 PM EDT Clinical Support [facility] 1 [place] [address] documented as of this encounter Procedures Procedure Name Priority Date/Time Associated Diagnosis Comments WOUND TREATMENT Routine 12/11/2024 6:05 PM EDT 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) CT DEBRIDEMENT MUSCLE &/FASCIA EA ADDL 20 SQ CM Routine 12/11/2024 2:40 PM EDT 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) Localized tissue (HCC) Other specified local infections of the skin and subcutaneous tissue CT DEBRIDEMENT MUSCLE &/FASCIA 1ST 20 SQ CM/< Routine 12/11/2024 2:40 PM EDT 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) Localized tissue (HCC) Other specified local infections of the skin and subcutaneous tissue CT DEBRIDEMENT MUSCLE &/FASCIA EA ADDL 20 SQ CM Routine 12/11/2024 2:40 PM EDT 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) Localized tissue (HCC) Other specified local infections of the skin and subcutaneous tissue CT DEBRIDEMENT MUSCLE &/FASCIA 1ST 20 SQ CM/< Routine 12/11/2024 2:40 PM EDT 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 written Consent given by: patient Risks discussed? procedural risks discussed Immediately prior to the procedure a time out was called and the performing provider verified the correct patient, procedure, equipment, sales support advisor, and site/side marked as required. Debridement Details Performed by: physician Debridement type: surgical Level of debridement: muscle Pain control: lidocaine 2% Pain control administration type: topical Pre-debridement measurements Length (cm): 6.2 Width (cm): 5.8 Depth (cm): 4.5 Surface Area (cm^2): 28.24 Post-debridement measurements Length (cm): 6.3 Width (cm): 5.9 Depth (cm): 4.6 Percent debrided: 100% Surface Area (cm^2): 29.19 Area Debrided (cm^2): 29.19 Volume (cm^3): 89.53 Tissue and other material debrided: adipose, dermis, [...] CT DEBRIDEMENT MUSCLE &/FASCIA EA ADDL 20SQ CM (12/11/2024 2:40 PM EDT) Jerry Littlejohn Jr., MD - 12/11/2024 2:40 PM EDT Jerry Monroe Jr., MD 12/11/2024 5:51 PM Debridement Wound 11/18/24 Leg upper Left;Medial Performed by: Jerry Monroe Jr., MD Authorized by: Jerry Monroe Jr., MD Consent Consent obtained? written Consent given by: patient Risks discussed? procedural risks discussed Immediately prior to the procedure a time out was called and the performing provider verified the correct patient, procedure, equipment, sales support advisor, and site/side marked as required. Debridement Details Performed by: physician Debridement type: surgical Level of debridement: muscle Pain control: lidocaine 2% Pain control administration type: topical Pre-debridement measurements Length (cm): 3 Width (cm): 0.7 Depth (cm): 1.5 Surface Area (cm^2): 1.65 Post-debridement measurements Length (cm): 3.1 Width (cm): 0.8 Depth (cm): 1.6 Percent debrided: 100% Surface Area (cm^2): 1.95 Area Debrided (cm^2): 1.95 Volume (cm^3): 2.08 Tissue and other material debrided: adipose, dermis, epidermis, fascia, ligament, muscle and subcutaneous tissue Devitalized tissue debrided: [...]
--- OUTSIDE RECORDS SUMMARY | 2024-12-13 12:00 | XMS_ITS | Encounter Summary ---
Author Organization [employer] ([place], [place], [place], [place]) Address [address] [place] [address] Care Team Providers Care Lapper Name Role Phone Unavailable Primary Care Provider Unavailabl e Reason for Visit * Reason Comments Wound Care Encounter Details Date Type Department Care Team (Late st Contact Info) Description 12/13/2024 12:00 PM EDT Clinical Support [facility] 1 [place] [address] Jerry Monroe Jr., MD [address] [place] [address] Non-pressure chronic ulcer of skin of [...] Support [facility] [address] [address] 12/18/2024 3:00 PM EDT Office Visit [facility] [address] [address] Jerry Monroe Jr., MD [address] [place] [address] 12/20/2024 3:30 PM EDT Clinical Support [facility] [address] [address] documented as of this encounter Procedures Procedure [...]
--- OUTSIDE RECORDS SUMMARY | 2024-12-15 07:41 | XMS_ITS | Encounter Summary ---
Author Organization Healthcare Address [address] [place] [address] Care Team Providers Care Occupancy Specialist Name Role Phone Asad Victor MD Primary Care Provider + [phone] Encounter Details Date Type Department Care Team (Late st Contact Info) Description 12/04/2024 [facility] [address] [facility] 5th Floor [address], [address] [place] [address] Nathaly Nowak MD [address] [facility] [address] [place] [address] Social History Tobacco Use Types [...] drink first t dino in the morning (EYE-APRON OPERATOR) to steady your nerves or to get rid of a hangover? 0 10/18/2021 CAGE Questionnaire Score 0 022 Utilities Answer Date Recorded In the past 12 months has th e [employer], gas, oil, or water company threatened to [...] phone call to Judy at [facility]. Patient previously stated that he is receiving [...] Clinical Concern/Question Reason for Call: judy at [facility] calling for wound measurements for wound vac. Please call Best contact number: Other: [phone] vext [phone] Optimal time of day to reach caller: [...] [facility] [address] [place] [address] 12/19/2024 8:00 AM EDT Appointment [facility] Lab [address] [place] [address] 12/19/2024 9:00 AM EDT Office Visit [facility] [address] [place] [address] Nathaly Nowak MD [address] [facility] [address] [place] [address] documented as of this encounter Goals Goal Patient Goal Type Associated Problems Recent Progress Patient-Stated? Author Autogenera louise Goal Care Plan Autogenerated Problem No Hope Ekta documented as of this encounter Visit Diagnoses Not on filedocumented in this encounter Additional Health Concerns Active Problems Noted Date Diagnosed Date Autogenerated Problem 09/23/2024 Assessment Noted Time A Body Mass Index follow-up plan has been documented for the patient 11/15/2024 8:19 AM EDT documented as of this encounter Care Teams Occupancy Specialist Relationship Specialty Start Date End Date Asad Victor MD [address] [place] [address] PCP - General 10/07/22 documented as of this encounter
--- OUTSIDE RECORDS SUMMARY | 2024-12-15 07:44 | XMS_ITS | Encounter Summary ---
Author Organization [employer] ([place], [place], [place], [place]) Address [address] [place] [address] Care Team Providers Care Poker Supervisor Name Role Phone Unavailable Primary Care Provider Unavailabl e Encounter Details Date Type Department Care Team (Latest Contact Info) Description 12/13/2024 Travel Social History Tobacco Use Types Packs/Day [...] Description 12/16/2024 3:30 PM EDT Clinical Support [facility] [place] 1 [place] [address] 12/18/2024 3:00 PM EDT Office Visit [facility] [place] 1 [place] [address] Jerry Monroe Jr., MD [address] [place] [address] 12/20/2024 3:30 PM EDT Clinical Support [facility] [place] 1 [place] [address] documented as of this encounter Visit Diagnoses Not on filedocumented in this encounter
--- OUTSIDE RECORDS SUMMARY | 2024-12-15 07:44 | XMS_ITS | Encounter Summary ---
Author Organization [employer] ([place], [place], [place], [place]) Address [address] [place] [address] Care Team Providers Care Wool Batting Worker Name Role Phone Unavailable Primary Care [...] Description 12/16/2024 3:30 PM EDT Clinical Support [facility] [place] 1 [place] [address] 12/18/2024 3:00 PM EDT Office Visit [facility] [place] 1 [place] [address] Jerry Monroe Jr., MD [address] [place] [address] 12/20/2024 3:30 PM EDT Clinical Support [facility] [place] 1 [place] [address] documented as of this encounter Visit Diagnoses Not on filedocumented in this encounter
[2024-12-15] MEDS: ERTAPENEM SODIUM 1 GM in 0.9 % SODIUM CHLORIDE 50 ML IV (07:45)
--- OUTSIDE RECORDS SUMMARY | 2024-12-15 07:47 | XMS_ITS | Encounter Summary ---
Author Organization [employer] ([place], [place], [place], [place]) Address [address] [place] [address] Care Team Providers Care Relay Shop Supervisor Name Role Phone Unavailable Primary Care [...] Description 12/16/2024 3:30 PM EDT Clinical Support [facility] [place] 1 [place] [address] 12/18/2024 3:00 PM EDT Office Visit [facility] [place] 1 [place] [address] Jerry Monroe Jr., MD [address] [place] [address] 12/20/2024 3:30 PM EDT Clinical Support [facility] [place] 1 [place] [address] documented as of this encounter Visit Diagnoses Not on filedocumented in this encounter
--- OUTSIDE RECORDS SUMMARY | 2024-12-15 07:47 | XMS_ITS | Encounter Summary ---
Author Organization Healthcare Address [address] [id number] Care Team Providers Care Network Firewall Engineer Name Role Phone Asad Victor MD Primary Care Provider + [phone] Reason for Visit * Reason Onset Date Comments [facility] Clinical Concern/Question 11/15/2024 Encounter Details Date Type Department Care Team (Late st Contact Info) Description 11/15/2024 Telephone [place] [facility] [address] [facility] 5th Floor [address], [address] [place] [address] Nathaly Nowak MD [address] [facility] [address] [place] [address] [facility] Clinical Concern/Question Social [...] drink first t dino in the morning (EYE-FELLING BUCKING SUPERVISOR) to steady your nerves or to [...] has been receiving his wound care through [facility] in [place]. Records requested from there. Post-op appointment request [...] with info. Thank you Best contact number: [phone] (mobile) Optimal time of day to reach [...] Description 12/19/2024 7:30 AM EDT Appointment [facility] Vascular Lab [address] Floor [address] [place] [address] 12/19/2024 8:00 AM EDT Appointment [facility] Vascular Lab [address] [place] [address] 12/19/2024 9:00 AM EDT Office Visit [facility] [address] [facility] 5th Floor [address] [place] [address] Nathaly Nowak MD [address] [facility] [address] [place] [address] documented as of this [...] documented as of this encounter Care Teams Network Firewall Engineer Relationship Specialty Start Date End Date Asad Victor MD [address] [place] [address] PCP - General 10/07/22 documented as of this encounter
--- OUTSIDE RECORDS SUMMARY | 2024-12-15 07:48 | XMS_ITS | Encounter Summary ---
Author Organization [facility] Address [address] [place] [address] Care Team Providers Care Wreath Machine Operator Name Role Phone Asad Victor MD Primary Care Provider + [phone] Encounter Details Date Type Department Care Team [...] Description 12/19/2024 7:[address] [facility]ascular Lab [address] [place] [address] 12/19/2024 8:[address] [facility] Lab [address] [facility] 5th Floor [address] [place] [address] 12/19/2024 9:00 AM EDT Office Visit [facility] Clinic [address] [facility] 5th Floor [address] [place] [address] Nathaly Nowak MD [address] [facility] [address] [place] [address] documented as of this encounter Goals Goal [...] documented as of this encounter Care Teams Wreath Machine Operator Relationship Specialty Start Date End Date Asad Victor MD [address] [place] [address] PCP - General 10/07/22 documented as of this encounter
--- OUTSIDE RECORDS SUMMARY | 2024-12-15 07:48 | XMS_ITS | Encounter Summary ---
Author Organization [employer] ([place], [place], [place], [place]) Address [address] [place] [address] Care Team Providers Care Flue Lining Dipper Name Role Phone Unavailable Primary Care Provider [...] Description 12/16/2024 3:30 PM EDT Clinical Support [facility] [place] 1 [place] [address] 12/18/2024 3:00 PM EDT Office Visit [facility] [place] 1 [place] [address] Jerry Monroe Jr., MD [address] [place] [address] 12/20/2024 3:30 PM EDT Clinical Support [facility] [place] 1 [place] [address] documented as of this encounter Visit Diagnoses Not on filedocumented in this encounter
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
--- OUTSIDE RECORDS SUMMARY | 2024-12-15 07:48 | XMS_ITS | Encounter Summary ---
Author Organization [email or web address] ([place], [place], [place], [place]) Address [address] [place] [address] Care Team Providers Care Template Inspector Name Role Phone Unavailable Primary Care Provider [...] Description 12/16/2024 3:30 PM EDT Clinical Support [facility] [place] [address] [place] [phone] 12/18/2024 3:00 PM EDT Office Visit [facility] [place] [address] [place] [address] Jerry Monroe Jr., MD [address] [place] [address] 12/20/2024 3:30 PM EDT Clinical Support [facility] [place] [address] [place] [address] documented as of this encounter Visit Diagnoses Not on filedocumented in this encounter
--- OUTSIDE RECORDS SUMMARY | 2024-12-15 07:49 | XMS_ITS | Encounter Summary ---
Author Organization Healthcare Address [address] [id number] Care Team Providers Care Administrative Services Assistant Name Role Phone Asad Victor MD Primary Care Provider + [phone] Encounter Details Date Type Department Care Team (Late st Contact Info) Description 10/22/2024 Telephone Vascular Surgery [address] [place] [address] Alison Beltrán, DEEP TISSUE MASSAGE THERAPIST, DNP [address] [facility] [address] [place] [address] Social History Tobacco Use Types Packs/Day Years [...] Notes * Telephone Encounter - Alison Beltrán, DEEP TISSUE MASSAGE THERAPIST, DNP - 10/22/2024 11:39 AM EDT Returned patient call. Patient s/p left common/superficial/profunda femoral thromboendarterectomy with bovine patch repair and left external iliac artery/MANUFACTURING ENGINEER stent with Dr Gautam on 10/17/24. [...] Info) Description 12/19/2024 7:30 AM EDT Appointment [facility] [address] [place] [address] 12/19/2024 8:00 AM EDT Appointment [facility] [address] [place] [address] 12/19/2024 9:00 AM EDT Office Visit [facility] [address] [place] [address] Nathaly Nowak MD [address] [facility] [address] [place] [address] documented as of this encounter Goals Goal [...] documented as of this encounter Care Teams Administrative Services Assistant Relationship Specialty Start Date End Date Asad Victor MD [address] [place] [address] PCP - General 10/07/22 documented as of this encounter
--- OUTSIDE RECORDS SUMMARY | 2024-12-15 07:49 | XMS_ITS | Encounter Summary ---
Author Organization Healthcare Address [address] [place] [address] Care Team Providers Care Highway Maintainer Name Role Phone Asad Victor MD Primary Care Provider + [phone] Encounter Details Date Type Department Care Team (Late st Contact Info) Description 12/07/2024 Results Follow-Up [address] [place] [address] Vaishali Kraus MD [address] [facility] [address] [place] [address] Social History Tobacco Use Types [...] drink first t dino in the morning (EYE-TIE CUTTER) to steady your nerves or to [...] Appointment [facility] [address] 5th Floor [address] [place] [address] 12/19/2024 8:00 AM EDT Appointment [facility] [address] [place] [address] 12/19/2024 9:00 AM EDT Office Visit [facility] [address] [place] [address] Nathaly Nowak MD [address] [facility] [address] [place] [address] documented as of this encounter Goals Goal [...] documented as of this encounter Care Teams Highway Maintainer Relationship Specialty Start Date End Date Asad Victor MD [address] [place] [address] PCP - General 10/07/22 documented as of this encounter
--- OUTSIDE RECORDS SUMMARY | 2024-12-15 07:49 | XMS_ITS | Encounter Summary ---
Author Organization Healthcare Address [address] [place] [address] Care Team Providers Care Loader Engineer Name Role Phone Asad Victor MD Primary Care Provider + [phone] Encounter Details Date Type Department Care Team (Late st Contact Info) Description 10/17/2024 Orders Only External Location [address] [place] [address] Provider, External Social History Tobacco Use Types [...] drink first t dino in the morning (EYE-TALENT DEVELOPMENT DIRECTOR) to steady your nerves or to get rid of a hangover? 0 10/18/2021 CAGE Questionnaire Score 0 022 Utilities Answer Date Recorded In the past 12 months has th e [employer], gas, oil, or water [employer] threatened to shut off services in [...] Info) Description 12/19/2024 7:30 AM EDT Appointment [facility] Vascular Lab [address] [place] [address] 12/19/2024 8:00 AM EDT Appointment [facility] [address] [place] [address] 12/19/2024 9:00 AM EDT Office Visit [facility] [address] [place] [address] Nathaly Nowak MD [address] [place] [address] documented as of this encounter Goals Goal [...] documented as of this encounter Care Teams Loader Engineer Relationship Specialty Start Date End Date Asad Victor MD [address] [place] [address] PCP - General 10/07/22 documented as of this encounter
--- OUTSIDE RECORDS SUMMARY | 2024-12-15 07:49 | XMS_ITS | Encounter Summary ---
Author Organization [facility] Address [address] [place] [address] Care Team Providers Care Director Speech And Hearing Name Role Phone Asad Victor MD Primary Care Provider + [phone] Encounter Details Date Type Department Care Team [...] drink first t dino in the morning (EYE-BMET) to steady your nerves or to get [...] [facility] [address] [place] [address] 12/19/2024 8:[address] [facility] Lab [address] [place] [address] 12/19/2024 9:00 AM EDT Office Visit [facility] [address] [place] [address] Nathaly Nowak MD [address] [facility] [address] [place] [address] documented as of this encounter [...] as of this encounter Care Teams Director Speech And Hearing Relationship Specialty Start Date End Date Asad Victor MD [address] [place] [address] PCP - General 10/07/22 documented as of this encounter
--- OUTSIDE RECORDS SUMMARY | 2024-12-15 07:49 | XMS_ITS | Encounter Summary ---
Author Organization Healthcare Address [address] [place] [address] Care Team Providers Care Unit Educator Name Role Phone Asad Victor MD Primary Care Provider + [phone] Encounter Details Date Type Department Care Team (Late st Contact Info) Description 11/27/2024 Orders Only [address] [address] Vaishali Kraus MD [address] [place] [address] [address] [place] [address] Therapeutic drug monitoring (Primary Dx) [...] drink first t dino in the morning (EYE-DESIGN ENGINEERING SPECIALIST) to steady your nerves or [...] [facility] Lab [address] [place] [address] 12/19/2024 8:00 AM EDT Appointment [facility] Lab [address] [place] [address] 12/19/2024 9:00 AM EDT Office Visit [facility] [address] [place] [address] Nathaly Nowak MD [address] [facility] [address] [place] [address] Scheduled Orders Name Type Priority Associated Diagnoses [...] documented as of this encounter Care Teams Unit Educator Relationship Specialty Start Date End Date Asad Victor MD [address] [facility] [place] [address] PCP - General 10/07/22 documented as of this encounter
--- OUTSIDE RECORDS SUMMARY | 2024-12-15 07:50 | XMS_ITS | Referral Summary ---
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) 12/11/2024 2:40 PM EDT Office Visit [facility] [place] [address] [place] [phone] Jerry Monroe Jr., MD 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); Localized tissue (HCC); Other specified local infections of the skin and subcutaneous tissue; Diabetes mellitus with skin ulcer (HCC) 12/09/2024 Travel 12/09/2024 3:30 PM EDT Clinical Support [facility] [place] [address] [place] [address] Jerry Monroe Jr., MD 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) 12/04/2024 Travel 12/04/2024 1:40 PM EDT Office Visit [facility] [place] [address] [place] [address] Jerry Monroe Jr., MD 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); Localized tissue (HCC); Other specified local infections of the skin and subcutaneous tissue; Diabetes mellitus with skin ulcer (HCC) 12/02/2024 Travel 12/02/2024 2:15 PM EDT Clinical Support [facility] [address] [place] [address] Jerry Monroe Jr., MD 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) 11/29/2024 4:00 PM EDT Clinical Support [facility] [place] [address] [place] [address] Jerry Monroe Jr., MD 11/27/2024 Travel 11/27/2024 2:20 PM EDT Office Visit [facility] [place] [address] [place] [address] Jerry Monroe Jr., MD 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); Localized tissue (HCC); Other specified local infections of the skin and subcutaneous tissue; Diabetes mellitus with skin ulcer (HCC) 11/22/2024 4:15 PM EDT Clinical Support [facility] [place] [address] [place] [phone] Jerry Monroe Jr., MD 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) 11/20/2024 Travel 11/20/2024 2:15 PM EDT Clinical Support [facility] [place] [address] [place] [address] Jerry Monroe Jr., MD 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) 11/18/2024 Travel 11/18/2024 1:10 PM EDT Office Visit [facility] [place] [address] [place] [address] Jerry Monroe Jr., MD Non-pressure chronic ulcer [...] F) 12/13/2024 12:31 PM EDT Respiratory Rate 18 12/11/2024 2:43 [...] Description 12/16/2024 3:30 PM EDT Clinical Support [facility] [place] [address] [place] [address] 12/18/2024 3:00 PM EDT Office Visit [facility] [address] [address] Jerry Monroe Jr., MD [address] [place] [address] 12/20/2024 3:30 PM EDT Clinical Support [facility] [address] [address] Procedures Procedure Name Priority Date/Time Associated Diagnosis Comments WOUND TREATMENT Routine 12/13/2024 1:49 PM EDT 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) WOUND TREATMENT Routine 12/11/2024 6:05 PM EDT 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) MO DEBRIDEMENT MUSCLE &/FASCIA EA ADDL 20 SQ CM Routine 12/11/2024 2:40 PM EDT 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) Localized tissue (HCC) Other specified local infections of the skin and subcutaneous tissue MO DEBRIDEMENT MUSCLE &/FASCIA 1ST 20 SQ CM/< Routine 12/11/2024 2:40 PM EDT 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) Localized tissue (HCC) Other specified local infections of the skin and subcutaneous tissue MO DEBRIDEMENT MUSCLE &/FASCIA EA ADDL 20 SQ CM Routine 12/11/2024 2:40 PM EDT 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) Localized tissue (HCC) Other specified local infections of the skin and subcutaneous tissue MO DEBRIDEMENT MUSCLE &/FASCIA 1ST 20 SQ CM/< Routine 12/11/2024 2:40 PM EDT 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) Localized tissue (HCC) Other specified local infections of the skin and subcutaneous tissue WOUND TREATMENT Routine 12/09/2024 5:03 PM EDT 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) MO DEBRIDEMENT MUSCLE &/FASCIA EA ADDL 20 SQ CM Routine 12/04/2024 1:40 PM EDT 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) Localized tissue (HCC) Other specified local infections of the skin and subcutaneous tissue MO DEBRIDEMENT MUSCLE &/FASCIA 1ST 20 SQ CM/< Routine 12/04/2024 1:40 PM EDT 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) Localized tissue (HCC) Other specified local infections of the skin and subcutaneous tissue MO DEBRIDEMENT MUSCLE &/FASCIA EA ADDL 20 SQ CM Routine 12/04/2024 1:40 PM EDT 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) Localized tissue (HCC) Other specified local infections of the skin and subcutaneous tissue MO DEBRIDEMENT MUSCLE &/FASCIA 1ST 20 SQ CM/< Routine 12/04/2024 1:40 PM EDT 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) Localized tissue (HCC) Other specified local infections of the skin and subcutaneous tissue MO DEBRIDEMENT MUSCLE &/FASCIA EA ADDL 20 SQ CM Routine 11/27/2024 2:20 PM EDT 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) Localized tissue (HCC) Other specified local infections of the skin and subcutaneous tissue MO DEBRIDEMENT MUSCLE &/FASCIA EA ADDL 20 SQ CM Routine 11/27/2024 2:20 PM EDT 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) Localized tissue (HCC) Other specified local infections of the skin and subcutaneous tissue MO DEBRIDEMENT MUSCLE &/FASCIA 1ST 20 SQ CM/< Routine 11/27/2024 2:20 PM EDT 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) Localized tissue (HCC) Other specified local infections of the skin and subcutaneous tissue MO DEBRIDEMENT MUSCLE &/FASCIA EA ADDL 20 SQ CM Routine 11/27/2024 2:20 PM EDT 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) Localized tissue (HCC) Other specified local infections of the skin and subcutaneous tissue MO DEBRIDEMENT MUSCLE &/FASCIA EA ADDL 20 SQ CM Routine 11/27/2024 2:20 PM EDT 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) Localized tissue (HCC) Other specified local infections of the skin and subcutaneous tissue MO DEBRIDEMENT MUSCLE &/FASCIA 1ST 20 SQ CM/< Routine 11/27/2024 2:20 PM EDT 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) Localized tissue (HCC) Other specified local infections of the skin and subcutaneous tissue WOUND TREATMENT Routine 11/22/2024 5:14 PM EDT 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) MO DEBRIDEMENT MUSCLE &/FASCIA EA ADDL 20 SQ CM Routine 11/18/2024 1:10 PM EDT 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) Localized tissue (HCC) Other specified local infections of the skin and subcutaneous tissue MO DEBRIDEMENT MUSCLE &/FASCIA EA ADDL 20 SQ CM Routine 11/18/2024 1:10 PM EDT 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) Localized tissue (HCC) Other specified local infections of the skin and subcutaneous tissue MO DEBRIDEMENT MUSCLE &/FASCIA 1ST 20 SQ CM/< Routine 11/18/2024 1:10 PM EDT 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) Localized tissue (HCC) Other specified local infections of the skin and subcutaneous tissue MO DEBRIDEMENT MUSCLE &/FASCIA EA ADDL 20 SQ CM Routine 11/18/2024 1:10 PM EDT 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) Localized tissue (HCC) Other specified local infections of the skin and subcutaneous tissue MO DEBRIDEMENT MUSCLE &/FASCIA EA ADDL 20 SQ CM Routine 11/18/2024 1:10 PM EDT 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 us Jerry Monroe Jr., MD NURSING PATHWAYS ORDERABL ES Final Result * MO DEBRIDEMENT MUSCLE &/FASCIA 1ST 20 SQ CM/<, MO DEBRIDEMENT MUSCLE &/FASCIA EA ADDL 20SQ CM [...] verified the correct patient, procedure, equipment, support specialist, and site/side marked as required. [...] MD PROCEDURE/MINOR SURGICAL ORDERABLES Final Result * MO DEBRIDEMENT MUSCLE &/FASCIA 1ST 20 SQ CM/<, MO DEBRIDEMENT MUSCLE &/FASCIA EA ADDL 20SQ CM [...] verified the correct patient, procedure, equipment, support specialist, and site/side marked as required. [...] MD PROCEDURE/MINOR SURGICAL ORDERABLES Final Result * MO DEBRIDEMENT MUSCLE &/FASCIA 1ST 20 SQ CM/<, MO DEBRIDEMENT MUSCLE &/FASCIA EA ADDL 20SQ CM [...] verified the correct patient, procedure, equipment, support specialist, and site/side marked as required. [...] MD PROCEDURE/MINOR SURGICAL ORDERABLES Final Result * MO DEBRIDEMENT MUSCLE &/FASCIA 1ST 20 SQ CM/<, MO DEBRIDEMENT MUSCLE &/FASCIA EA ADDL 20SQ CM [...] verified the correct patient, procedure, equipment, support specialist, and site/side marked as required. [...] MD PROCEDURE/MINOR SURGICAL ORDERABLES Final Result * MO DEBRIDEMENT MUSCLE &/FASCIA 1ST 20 SQ CM/<, MO DEBRIDEMENT MUSCLE &/FASCIA EA ADDL 20SQ CM, MO DEBRIDEMENT MUSCLE &/FASCIA EA ADDL 20 SQ [...] verified the correct patient, procedure, equipment, support specialist, and site/side marked as required. [...] MD PROCEDURE/MINOR SURGICAL ORDERABLES Final Result * MO DEBRIDEMENT MUSCLE &/FASCIA 1ST 20 SQ CM/<, MO DEBRIDEMENT MUSCLE &/FASCIA EA ADDL 20SQ CM, MO DEBRIDEMENT MUSCLE &/FASCIA EA ADDL 20 SQ [...] verified the correct patient, procedure, equipment, support specialist, and site/side marked as required. [...] MD PROCEDURE/MINOR SURGICAL ORDERABLES Final Result * MO DEBRIDEMENT MUSCLE &/FASCIA 1ST 20 SQ CM/<, MO DEBRIDEMENT MUSCLE &/FASCIA EA ADDL 20SQ CM, MO DEBRIDEMENT MUSCLE &/FASCIA EA ADDL 20 SQ [...] verified the correct patient, procedure, equipment, support specialist, and site/side marked as required. [...] MD PROCEDURE/MINOR SURGICAL ORDERABLES Final Result * MO DEBRIDEMENT MUSCLE &/FASCIA 1ST 20 SQ CM/<, MO DEBRIDEMENT MUSCLE &/FASCIA EA ADDL 20SQ CM, MO DEBRIDEMENT MUSCLE &/FASCIA EA ADDL 20 SQ [...] verified the correct patient, procedure, equipment, support specialist, and site/side marked as required. [...] Final Result from Last 3 Months Insurance [facility] MCR ADV DUAL COMPLETE MEDICAID OF [place]
--- OUTSIDE RECORDS SUMMARY | 2024-12-15 07:50 | XMS_ITS | Encounter Summary ---
Author Organization [employer] ([place], [place], [place], [place]) Address [address] [place] [address] Care Team Providers Care Dealership General Manager Name Role Phone Unavailable Primary Care [...] Description 12/16/2024 3:30 PM EDT Clinical Support [facility] [place] [address] [place] [phone] 12/18/2024 3:00 PM EDT Office Visit [facility] [place] [address] [place] [address] Jerry Monroe Jr., MD [address] [place] [address] 12/20/2024 3:30 PM EDT Clinical Support [facility] [place] [address] [place] [address] documented as of this encounter Visit Diagnoses Not on filedocumented in this encounter
--- OUTSIDE RECORDS SUMMARY | 2024-12-15 07:50 | XMS_ITS | Encounter Summary ---
Author Organization Healthcare Address [address] [place] [address] Care Team Providers Care Gunner Mate Name Role Phone Asad Victor MD Primary Care Provider + [phone] Encounter Details Date Type Department Care Team (Late st Contact Info) Description 11/05/2024 Orders Only External Location [address] [place] [address] Provider, External Social History Tobacco Use Types [...] drink first t dino in the morning (EYE-SYSTEM DISPATCHER) to steady your nerves or to get rid of a hangover? 0 10/18/2021 CAGE Questionnaire Score 0 022 Utilities Answer Date Recorded In the past 12 months has th e [email or web address], gas, oil, or water company threatened to [...] Info) Description 12/19/2024 7:30 AM EDT Appointment [facility] Lab [address] [place] [address] 12/19/2024 8:00 AM EDT Appointment [facility] [address] [place] [address] 12/19/2024 9:00 AM EDT Office Visit [facility] [address] [place] [address] Nathaly Nowak MD [address] [place] [address] documented as of this encounter Goals Goal [...] documented as of this encounter Care Teams Gunner Mate Relationship Specialty Start Date End Date Asad Victor MD [address] [place] [address] PCP - General 10/07/22 documented as of this encounter
--- OUTSIDE RECORDS SUMMARY | 2024-12-15 07:50 | XMS_ITS | Encounter Summary ---
Author Organization [facility] Address [address] [place] [address] Care Team Providers Care Upper And Bottom Lacer Hand Name Role Phone Asad Victor MD Primary Care Provider + [phone] Encounter Details Date Type Department Care Team [...] any time in the past 12 m [facility], were you homeless or living in [...] drink first t dino in the morning (EYE-BUCKLE COVERER) to steady your nerves or to [...] Info) Description 12/19/2024 7:30 AM EDT Appointment [facility] Lab [address] [place] [address] 12/19/2024 8:00 AM EDT Appointment [facility] [address] [place] [address] 12/19/2024 9:00 AM EDT Office Visit [facility] [address] [place] [address] Nathaly Nowak MD [address] [place] [address] documented as of this encounter Goals Goal [...] documented as of this encounter Care Teams Upper And Bottom Lacer Hand Relationship Specialty Start Date End Date Asad Victor MD [address] [place] [address] PCP - General 10/07/22 documented as of this encounter
--- OUTSIDE RECORDS SUMMARY | 2024-12-15 07:50 | XMS_ITS | Clinical Summary ---
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); Localized tissue (HCC); Other specified local infections of the skin and subcutaneous tissue; Diabetes mellitus with skin ulcer (HCC) 12/09/2024 3:30 PM EDT Clinical Support [facility] [address] [place] [phone] Jerry Monroe Jr., MD 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) 12/09/2024 Travel 12/04/2024 1:40 PM EDT Office Visit [place] [phone] Jerry Monroe Jr., MD 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); Localized tissue (HCC); Other specified local infections of the skin and subcutaneous tissue; Diabetes mellitus with skin ulcer (HCC) 12/04/2024 Travel 12/02/2024 2:15 PM EDT Clinical Support [facility] 1 [place] [address] Jerry Monroe Jr., MD 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) 12/02/2024 Travel 11/29/2024 4:00 PM EDT Clinical Support [facility] Wound Care [place] 1 [place] [address] Jerry Monroe Jr., MD 11/27/2024 2:20 PM EDT Office Visit [facility] [address] [place] [phone] Jerry Monroe Jr., MD 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); Localized tissue (HCC); Other specified local infections of the skin and subcutaneous tissue; Diabetes mellitus with skin ulcer (HCC) 11/27/2024 Travel 11/22/2024 4:15 PM EDT Clinical Support [facility] [place] [address] [place] [phone] Jerry Monroe Jr., MD 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) 11/20/2024 2:15 PM EDT Clinical Support [place] [phone] Jerry Monroe Jr., MD 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) 11/20/2024 Travel 11/18/2024 1:10 PM EDT Office Visit [facility] [address] [place] [phone] Jerry Monroe Jr., MD Non-pressure chronic ulcer [...] Support [facility] Wound Care [place] 1 [place] [address] 12/18/2024 3:00 PM EDT Office Visit [facility] 1 [place] [address] Jerry Monroe Jr., MD [address] [place] [address] 12/20/2024 3:30 PM EDT Clinical Support [facility] 1 [place] [address] Health Maintenance Due Date Last [...] 02/06/2021 Tobacco Cessation Counseling and Screening (12+) 12/13/2025 12/13/2024 Procedures Procedure Name Priority Date/Time Associated Diagnosis Comments WOUND TREATMENT Routine 12/13/2024 1:49 PM EDT 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) WOUND TREATMENT Routine 12/11/2024 6:05 PM EDT 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) PA DEBRIDEMENT MUSCLE &/FASCIA EA ADDL 20 SQ CM Routine 12/11/2024 2:40 PM EDT 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) Localized tissue (HCC) Other specified local infections of the skin and subcutaneous tissue PA DEBRIDEMENT MUSCLE &/FASCIA 1ST 20 SQ CM/< Routine 12/11/2024 2:40 PM EDT 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) Localized tissue (HCC) Other specified local infections of the skin and subcutaneous tissue PA DEBRIDEMENT MUSCLE &/FASCIA EA ADDL 20 SQ CM Routine 12/11/2024 2:40 PM EDT 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) Localized tissue (HCC) Other specified local infections of the skin and subcutaneous tissue PA DEBRIDEMENT MUSCLE &/FASCIA 1ST 20 SQ CM/< Routine 12/11/2024 2:40 PM EDT 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) Localized tissue (HCC) Other specified local infections of the skin and subcutaneous tissue WOUND TREATMENT Routine 12/09/2024 5:03 PM EDT 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) PA DEBRIDEMENT MUSCLE &/FASCIA EA ADDL 20 SQ CM Routine 12/04/2024 1:40 PM EDT 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) Localized tissue (HCC) Other specified local infections of the skin and subcutaneous tissue PA DEBRIDEMENT MUSCLE &/FASCIA 1ST 20 SQ CM/< Routine 12/04/2024 1:40 PM EDT 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) Localized tissue (HCC) Other specified local infections of the skin and subcutaneous tissue PA DEBRIDEMENT MUSCLE &/FASCIA EA ADDL 20 SQ CM Routine 12/04/2024 1:40 PM EDT 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) Localized tissue (HCC) Other specified local infections of the skin and subcutaneous tissue PA DEBRIDEMENT MUSCLE &/FASCIA 1ST 20 SQ CM/< Routine 12/04/2024 1:40 PM EDT 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) Localized tissue (HCC) Other specified local infections of the skin and subcutaneous tissue PA DEBRIDEMENT MUSCLE &/FASCIA EA ADDL 20 SQ CM Routine 11/27/2024 2:20 PM EDT 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) Localized tissue (HCC) Other specified local infections of the skin and subcutaneous tissue PA DEBRIDEMENT MUSCLE &/FASCIA EA ADDL 20 SQ CM Routine 11/27/2024 2:20 PM EDT 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) Localized tissue (HCC) Other specified local infections of the skin and subcutaneous tissue PA DEBRIDEMENT MUSCLE &/FASCIA 1ST 20 SQ CM/< Routine 11/27/2024 2:20 PM EDT 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) Localized tissue (HCC) Other specified local infections of the skin and subcutaneous tissue PA DEBRIDEMENT MUSCLE &/FASCIA EA ADDL 20 SQ CM Routine 11/27/2024 2:20 PM EDT 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) Localized tissue (HCC) Other specified local infections of the skin and subcutaneous tissue PA DEBRIDEMENT MUSCLE &/FASCIA EA ADDL 20 SQ CM Routine 11/27/2024 2:20 PM EDT 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) Localized tissue (HCC) Other specified local infections of the skin and subcutaneous tissue PA DEBRIDEMENT MUSCLE &/FASCIA 1ST 20 SQ CM/< Routine 11/27/2024 2:20 PM EDT 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) Localized tissue (HCC) Other specified local infections of the skin and subcutaneous tissue WOUND TREATMENT Routine 11/22/2024 5:14 PM EDT 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) PA DEBRIDEMENT MUSCLE &/FASCIA EA ADDL 20 SQ CM Routine 11/18/2024 1:10 PM EDT 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) Localized tissue (HCC) Other specified local infections of the skin and subcutaneous tissue PA DEBRIDEMENT MUSCLE &/FASCIA EA ADDL 20 SQ CM Routine 11/18/2024 1:10 PM EDT 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) Localized tissue (HCC) Other specified local infections of the skin and subcutaneous tissue PA DEBRIDEMENT MUSCLE &/FASCIA 1ST 20 SQ CM/< Routine 11/18/2024 1:10 PM EDT 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) Localized tissue (HCC) Other specified local infections of the skin and subcutaneous tissue PA DEBRIDEMENT MUSCLE &/FASCIA EA ADDL 20 SQ CM Routine 11/18/2024 1:10 PM EDT 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) Localized tissue (HCC) Other specified local infections of the skin and subcutaneous tissue PA DEBRIDEMENT MUSCLE &/FASCIA EA ADDL 20 SQ CM Routine 11/18/2024 1:10 PM EDT 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 Jerry Monroe Jr., MD NURSING PATHWAYS ORDERABL ES Final Result * PA DEBRIDEMENT MUSCLE &/FASCIA 1ST 20 SQ CM/<, PA DEBRIDEMENT MUSCLE &/FASCIA EA ADDL 20SQ CM [...] the correct patient, procedure, equipment, direct support worker, and site/side marked as required. [...] MD PROCEDURE/MINOR SURGICAL ORDERABLES Final Result * PA DEBRIDEMENT MUSCLE &/FASCIA 1ST 20 SQ CM/<, PA DEBRIDEMENT MUSCLE &/FASCIA EA ADDL 20SQ CM [...] the correct patient, procedure, equipment, direct support worker, and site/side marked as required. [...] MD PROCEDURE/MINOR SURGICAL ORDERABLES Final Result * PA DEBRIDEMENT MUSCLE &/FASCIA 1ST 20 SQ CM/<, PA DEBRIDEMENT MUSCLE &/FASCIA EA ADDL 20SQ CM [...] the correct patient, procedure, equipment, direct support worker, and site/side marked as required. [...] MD PROCEDURE/MINOR SURGICAL ORDERABLES Final Result * PA DEBRIDEMENT MUSCLE &/FASCIA 1ST 20 SQ CM/<, PA DEBRIDEMENT MUSCLE &/FASCIA EA ADDL 20SQ CM [...] the correct patient, procedure, equipment, direct support worker, and site/side marked as required. [...] MD PROCEDURE/MINOR SURGICAL ORDERABLES Final Result * PA DEBRIDEMENT MUSCLE &/FASCIA 1ST 20 SQ CM/<, PA DEBRIDEMENT MUSCLE &/FASCIA EA ADDL 20SQ CM, PA DEBRIDEMENT MUSCLE &/FASCIA EA ADDL 20 SQ [...] the correct patient, procedure, equipment, direct support worker, and site/side marked as required. [...] MD PROCEDURE/MINOR SURGICAL ORDERABLES Final Result * PA DEBRIDEMENT MUSCLE &/FASCIA 1ST 20 SQ CM/<, PA DEBRIDEMENT MUSCLE &/FASCIA EA ADDL 20SQ CM, PA DEBRIDEMENT MUSCLE &/FASCIA EA ADDL 20 SQ [...] the correct patient, procedure, equipment, direct support worker, and site/side marked as required. [...] MD PROCEDURE/MINOR SURGICAL ORDERABLES Final Result * PA DEBRIDEMENT MUSCLE &/FASCIA 1ST 20 SQ CM/<, PA DEBRIDEMENT MUSCLE &/FASCIA EA ADDL 20SQ CM, PA DEBRIDEMENT MUSCLE &/FASCIA EA ADDL 20 SQ [...] the correct patient, procedure, equipment, direct support worker, and site/side marked as required. [...] MD PROCEDURE/MINOR SURGICAL ORDERABLES Final Result * PA DEBRIDEMENT MUSCLE &/FASCIA 1ST 20 SQ CM/<, PA DEBRIDEMENT MUSCLE &/FASCIA EA ADDL 20SQ CM, PA DEBRIDEMENT MUSCLE &/FASCIA EA ADDL 20 SQ [...] the correct patient, procedure, equipment, direct support worker, and site/side marked as required. [...] 3 Months Insurance [facility] ADV DUAL COMPLETE MEDICAID OF [place]
--- OUTSIDE RECORDS SUMMARY | 2024-12-15 07:51 | XMS_ITS | Encounter Summary ---
Author Organization Healthcare Address [address] [place] [address] Care Team Providers Care Concrete Stone Finisher Name Role Phone Asad Victor MD Primary Care Provider + [phone] Encounter Details Date Type Department Care Team (Late st Contact Info) Description 11/15/2024 Clinical Support [place] [id number] [place] [address] Charly Orlando, PharmD [address] [place] [address] [address] [place] [address] Social History Tobacco Use Types [...] first t dino in the morning (EYE-SENIOR CAREGIVER) to steady your nerves or to get rid of a hangover? 0 10/18/2021 CAGE Questionnaire Score 0 022 Utilities Answer Date Recorded In the past 12 months has th e [employer], gas, oil, or water company threatened to [...] Info) Description 12/19/2024 7:30 AM EDT Appointment [facility] [address] [facility] 5th Floor [address] [place] [address] 12/19/2024 8:00 AM EDT Appointment [facility] [address] [facility] 5[address] Floor [address] [place] [address] 12/19/2024 9:00 AM EDT Office Visit [facility] [address] [facility] 5th Floor [address] [place] [address] Nathaly Nowak MD [address] [facility] [address] [place] [address] documented as of this encounter Goals Goal [...] documented as of this encounter Care Teams Concrete Stone Finisher Relationship Specialty Start Date End Date Asad Victor MD [address] [place] [address] PCP - General 10/07/22 documented as of this encounter
--- OUTSIDE RECORDS SUMMARY | 2024-12-15 07:52 | XMS_ITS | Encounter Summary ---
Author Organization [employer] ([place], [place], [place], [place]) Address [address] [place] [address] Care Team Providers Care Stone Driller Helper Name Role Phone Unavailable Primary Care [...] [facility] [place] 1 [place] [phone] 12/18/2024 3:00 PM EDT Office Visit [facility] [place] 1 [place] [address] Jerry Monroe Jr., MD [address] [place] [address] 12/20/2024 3:30 PM EDT Clinical Support [facility] [place] 1 [place] [phone] documented as of this encounter Visit Diagnoses Not on filedocumented in this encounter
[2024-12-15] MEDS: SODIUM CHLORIDE 0.9% IV (08:15)
[2024-12-15] MEDS: MICAFUNGIN SODIUM IV (08:15)
== END 2024-12-15 09:20 | disposition home or self-care (01) ==
LOC: INF 07:39
PROVIDERS: PCP Family Medicine; Visit Provider Family Medicine
DX: T81.49XA Infection following a procedure, other surgical site, initial encounter (principal); L08.9 Local infection of the skin and subcutaneous tissue, unspecified
CPT/HCPCS: 96365; 96366; 96367; J1335; J2248

== ENCOUNTER 2024-12-16 08:03 | Outpatient (CLI) | payer MEDICARE, OTHER, SELFPAY ==
--- OUTSIDE RECORDS SUMMARY | 2024-10-16 14:45 | XMS_ITS | Encounter Summary ---
Author Organization Healthcare Address [address] [place] [address] Care Team Providers Care Labor Delivery Rn Name Role Phone Asad Victor MD Primary Care Provider + [phone] Encounter Details Date Type Department Care Team (Latest Contact Info) Description 10/16/2024 2:45 PM EDT - 10/16/2024 11:59 PM EDT Hospital Encounter Cardiac Imaging [address] [place] [address] Discharge Disposition: Home or Self Care Social [...] drink first t dino in the morning (EYE-LOSS CONTROL CONSULTANT) to steady your nerves or to get [...] Info) Description 12/19/2024 7:30 AM EDT Appointment [facility] [address] [place] [address] 12/19/2024 8:00 AM EDT Appointment [facility] [address] [place] [address] [address] [place] [address] 12/19/2024 9:00 AM EDT Office Visit [facility] [address] [place] [address] Nathaly Nowak MD [address] [facility] [address] [place] [address] documented as of this encounter Goals Goal [...] Modality Other Narrative 10/17/2024 9:50 AM EDT [facility]: Pre-operative CIED Report Assessment and Sara-Procedural Reommendations: Name: Mono Bobby Date: 10/17/2024 : 1960 Age: 64 y.o. Patient has a Warehouse Packaging Supervisor: Berger MARINE ENGINEERING CONSULTANT-PM Remaining battery longevity adequate. Lead integrity test [...] recommendations. Supporting reports can be found in [employer] file. 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
--- OUTSIDE RECORDS SUMMARY | 2024-10-17 06:21 | XMS_ITS | Encounter Summary ---
Author Organization [facility] Address [address] [id number] Care Team Providers Care New Car Make Ready Mechanic Name Role Phone Asad Victor MD Primary Care Provider [phone] Reason for Referral * Imaging (Routine) - Authorized Specialty Diagnoses / Procedures Referred By Susan t Referred To Contact Cardiology Diagnoses Critical limb ischemia of left lower extremity Pseudoaneurysm of left femoral artery (CMS/HCC) Procedures VAS US Arterial Duplex Lower Extremity Unilateral Left Terrell Gautam MD [address] [address] Phone: tel: fax: Referral ID Status Reason Start Date Expiration Date Visits Requested Visits Authorized [id number] Authorized Perform Procedure 10/19/2024 04/20/2026 1 1 * Imaging (Routine) - Authorized Specialty Diagnoses / Procedures Referred By Contac t Referred To Contact Cardiology Diagnoses Critical limb ischemia of left lower extremity Pseudoaneurysm of left femoral artery (CMS/HCC) Procedures VAS Ankle Brachial Index - Segmental Terrell Gautam MD [id number] [place] [address] Phone: tel: fax: Referral ID Status Reason Start Date Expiration Date Visits Requested Visits Authorized [id number] Authorized Perform Procedure 10/19/2024 04/20/2026 1 1 * Consultation (Routine) - Authorized Specialty Diagnoses / Procedures Referred By Contact Referred To Contact Vascular Surgery / [facility] Diagnoses Critical limb ischemia of left lower extremity Pseudoaneurysm of left femoral artery (CMS/HCC) Terrell Gautam MD [address] [place] [address] Phone: tel:[phone] fax:[phone] [facility] [address] [place] [address] 5th Floor [address], [address] [place] [address] Phone: tel: fax: Referral ID Status Reason Start Date Expiration Date Visits Requested Visits Authorized [id number] Authorized Specialty Services Required 10/19/2024 04/20/2026 [address] Gautam, with SIL, arterial duplex Reason for Visit * Auth/Cert (Routine) Specialty Diagnoses / Procedures Referred By Susan t Referred To Contact Diagnoses Critical limb ischemia of left lower extremity Critical limb ischemia of left lower extremity [I70.222] Procedures IA VEIN BYPASS GRAFT,FEM-POP CREATION, BYPASS, ARTERIAL, FEMORAL TO POPLITEAL Terrell Gautam MD [address] [place] [address] Phone: tel: fax: P[facility] A OPERATING ROOM [address] [place] [address] Phone: tel: Referral ID Status Reason Start Date Expiration Date Visits Re quested Visits Authorized [id number] 1 1 Encounter Details Date Type Department Care Team (Latest Contact Info) Description 10/17/2024 6:21 AM EDT - 10/19/2024 12:39 PM EDT Hospital Encounter [facility] H Inpatient [address] [place] [id number] Terrell Gautam MD [address] [place] [address] Pseudoaneurysm of left femoral artery (CMS/HCC) [...] any time in the past 12 m [facility], were you homeless or living in a prison (including now)? No 10/18/2024 CAGE ASSESSMENT Answer [...] drink first t dino in the morning (E[employer]-CONTR[employer]S ATTORNEY) to steady your nerves or to get rid of a hangover? 0 10/18/2021 CAGE Questionnaire Score 0 022 Utilities Answer Date Recorded In the past 12 months has th [facility], gas, oil, or water [employer] threatened to shut off services in your [...] provided Taken 10/17/20242107 by Jourdan Grimes II grinding wheel inspector Review/Management: medications reviewed Problem: Skin Injury Risk [...] Ongoing, Progressing Intervention: Promote Activity and Functional [place] Flowsheets (Taken 10/19/2024 1048) Self-Care Promotion: BADL personal objects within reach meal set-up provided * Yuni Ramires - Keyla Chow - 10/19/2024 11:45 AM EDT Images from the original note were not included. [id number] After Peripheral Artery Bypass Surgery: In the [...] home. Last Reviewed Date: 2023 00:00:00 ?? [id number] [employer]. All rights reserved. This information is not intended as a substitute for professional medical care. Always follow your healthcare professional's instructions. * Progress Notes - Emelina Friend - 10/19/2024 11:44 AM EDT Case Management Adult Progress Note Bev Bobby 64 y.o. male CSN: [id number] Admission: 10/17/2024 6:21 AM Primary Problem: Critical [...] if any other needs arise. Emelina Friend OPERATIONS CONSULTANT, PICKER AND SORTER LOAD AND UNLOAD Social Work Case Management * Yuni OviJOSE MANUEL Chow Keyla - 10/19/2024 11:44 AM EDT Images from the original note were not included. [id number] Peripheral Artery Disease (PAD) Peripheral artery disease [...] cause. Last Reviewed Date: 2024 00:00:00 ?? 5523-0084 [employer]. All rights reserved. This information is not intended as a substitute for professional medical care. Always follow your healthcare professional's instructions. * Yuni DiorNAVYA - Keyla Chow - 10/19/2024 11:44 AM EDT Images from the original note were not included. [id number] Leg Artery Emergencies: Critical Limb Ischemia (CLI) [...] appointments. Last Reviewed Date: 2023 00:00:00 ?? [id number] [employer]. All rights reserved. This information is not intended as a substitute for professional medical care. Always follow your healthcare professional's instructions. * Discharge Summary - Dandy Baltazar MD - 10/19/2024 11:31 AM EDT Hospitalization Admit Date/Time: 10/17/2024 6:21 AM Admitting Attending: Terrell Gautam Discharge Date: 10/19/24 Discharge Attending Physician: Nirmal Cueto MD PCP name and Address: Asad Victor MD (Inactive) [address] [place] [address] / [facility] [address] Referring provider name and address: Timothy Marques PA [address] [place] [address] Chief Concern, Brief History of Present Illness, and Hospital Course Bev Bobby is an 64 y.o. male with past medical history of traumatic [place] [employer] pseudoaneurysm due to access for pacemaker. He [...] Your Medications These medications were sent to [facility] [place], [place] - [address], [facility] [address] acetaminophen 500 MG tablet clopidogrel 75 MG [...] of water. 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 He [...] provided Taken 10/17/20242107 by Jourdan Grimes II, grinding wheel inspector Review/Management: medications reviewed Problem: Skin Injury Risk [...] Ongoing, Progressing Intervention: Promote Activity and Functional [place] Flowsheets (Taken 10/19/2024 1048) Self-Care Promotion: BADL [...] evaluation. PARTICIPANTS IN CARE Visitors Present No Supervisor Calibration (if applicable) PRESENTATION Oxygen Oxygen Therapy: None [...] Level of Mobility Ambulatory- household only Mobility [place] Independent gait with device (rollator) History of [...] numbness in rodney) BED MOBILITY Level of [place] Physical/Non- physical Assist Adaptive Equipment Utilized Rolling/ Turning Scooting/ Bridging Modified independence (anteriorly to EOB) Bed rails Supine to Sit Modified [place] (to the right) (HOB flat) Bed rails Sit to Supine Interventions HOB flat to simulate home environment TRANSFERS Level of [place] Physical/Non- physical Assist Adaptive Equipment Utilized Sit [...] stable surfaces during transitions. AMBULATION Level of [place] Distance Adaptive Equipment Utilized Ambulation Standby assist, [...] Posture: Forward head, Rounded shoulders Level of [place] Balance Support Interventions Static Sit Independent Right [...] 3-5 steps with a railing?: A little [facility] 6-Clicks Mobility Assessment Total : 22 [...] evaluation/session. Participants in Care Family/Caregiver Present: No Supervisor Calibration: Not Applicable Presentation Oxygen Therapy: None (Room [...] Level of Mobility: Ambulatory- household only Mobility [place]: Independent gait with device (rollator) History of [...] Mobility Bed Mobility Exam: Scooting/Bridging Level of [place]: Modified independence (anteriorly to EOB) Assistive Device: Bed rails Bed Mobility Exam: Supine to Sit Level of [place]: Modified [place] (to the right) Physical/Nonphysical Assist: (HOB flat) Assistive Device: Bed rails Transfers Transfer Exam: Sit to stand Level of [place]: Stand-by assist Physical/Nonphysical Assist: Supervision, Verbal Cues, Minimal cues Assistive Device: Walker, rolling Transfer Exam: Stand to Sit Level of [place]: Stand-by assist Physical/Nonphysical Assist: Supervision, Verbal Cues, [...] regarding toileting at this time. Standardized Assessments [facility] 6-Click Daily Activities Help from Other: Don/Doff Regular Lower Body Clothings: None Help From Other: Bathing: Little Help From Other: Toileting: None Help From Other: Don/Doff Upper Body Clothings: None Help From Other: Grooming: None Help From Other: Eating Meals: None [facility] 6 Click - Daily Activities Score: 23/24 [facility] Scoring Interpretation: Scores greater than 20.5 [...] Note Bev Bobby 64 y.o. male CSN: [id number] Admission: 10/17/2024 6:21 AM Primary Problem: Critical limb ischemia of left lower extremity Professor Of Marketing reviewed chart and spoke with patient to complete this Initial Case Management Assessment. PCP: Asad Victor MD (Inactive) - Dr. Palomo Preferred pharmacy is [facility] Emergency Contact: Extended Emergency Contact Information Primary Emergency Contact: Patti Hill Relation: Sister Supervisor Calibration needed? No Insurance: Primary Visit Coverage Payer Plan Sponsor Code Group Number Group Name [facility] MEDICARE [facility] MEDICARE REPLACEMENT [id number] Primary Visit Coverage Subscriber Subscriber ID Subscriber Name Subscriber N Subscriber Address [id number] BEV BOBBY [id number] [place] [address] Secondary Visit Coverage Payer Plan Sponsor Code Group Number Group Name [facility] Secondary Visit Coverage Subscriber Subscriber ID Subscriber Name Subscriber N Subscriber Address [id number] BEV BOBBY [id number] [place] [address] Patient information: Primary Caregiver: Self Daily Living Activities: Functional Status: Independent Living Arrangements: Alone Type of Residence: Private residence, Single Level [address] [place] [address] Current DME: Equipment Currently Used at Home: walker, rollator Income Information: Income Source: Retired Income/Expense Information: Income meets expenses Current Resources Utilized: Food [place] Housing Circumstances-Z Codes: Housing Circumstances (select all [...] Dialysis Services: None. Living Will/Advance Directive/Power of Boring Inspector /Guardian: Denied. Additional Comments: Patient is not medically ready for discharge. SW will continue to follow. Mariia Macedo PICKER AND SORTER LOAD AND UNLOAD * Care Plan - Emilia Alonso RN [...] from the original note were not included. [facility] Department of Surgery Division of Vascular [...] Agree with above assessment and evaluation from resident/CARE MGR. * Op Note - Terrell Gautam MD - 10/17/2024 8:52 AM EDT Operative Note Date: 10/17/24 Location: [facility] Name: Bev Bobby, : 1960, Diagnoses: Pre-op Diagnosis Critical limb ischemia of left lower extremity Common femoral artery pseudoaneurysm Post-op Diagnosis Critical limb ischemia of left lower extremity Common femoral artery pseudoaneurysm Procedure(s): Left common/superficial/profunda femoral thromboendarterectomy with bovine patch repair Left external iliac artery/[employer] [employer] stent Attending Surgeon(s): * Terrell Gautam - Primary Software Quality Manager(s): * Luna Beckett MD - Resident - [...] Necessity Reasons Recent surgery contiguous with urinary tract/DOCTOR'S ASSISTANT/colorectal 10/17/24 190 Output (mL) 50 mL 10/18/24 08 Implants Type Name Action Serial No. VASCUGUARD 8 X 8 - [id number] Implanted STENT ENDOPROSTHESIS VIABAHN 9FR [id number] - [id number] Implanted [id number] Specimen: Specimens ID Source Frozen? 1 Other [...] and distal control. We then proceeded with zrimq-hfq-[id number] exposure of the popliteal artery. A medial [...] balloon dilated thestent with a 9 mm Ed[place]. We closed the arteriotomy with a single [...] the findings and plan as documented. Terrell Gautma MD * Brief Op Note - Dandy Baltazar MD - 10/17/2024 8:52 AM EDT Date: 10/17/24 Location: [facility] Name: Bev Perez Kanu, : 1960, Diagnoses: Pre-op Diagnosis Critical limb ischemia of left lower extremity Common femoral artery pseudoaneurysm Post-op Diagnosis Critical limb ischemia of left lower extremity Common femoral artery pseudoaneurysm Procedure(s): Left common/superficial/profunda femoral thromboendarterectomy with bovine patch repair Left external iliac artery/[employer] T[employer]ER stent Attending Surgeon(s): * Terrell Gautam - Primary Software Quality Manager(s): * Luna Beckett MD - Resident - Assisting * Dandy Baltazar MD - Fellow Anesthesia: General ASA: III Blood Administration: Blood Product Administration History None Estimated Blood Loss: 300 mL Drains: Urethral Catheter Temperature probe 16 Fr. (Active) Implants Type Name Action Serial No. VASCUGUARD 8 X 8 - [id number] Implanted STENT ENDOPROSTHESIS VIABAHN 9FR [id number] - [id number] Implanted [id number] Specimen: Specimens ID Source Frozen? 1 Other [...] issues. Patient has history of traumatic [place] [employer] pseudoaneurysm due to access for pacemaker. He previouslyunderwent thrombin injection. He reports pain in his calves. He presents today for scheduled left lower extremity femoral to vdpmy-gzn-ghiy popliteal bypass. Planned likely use PTFE. He [...] 16. Results Review {Vanishing Link Review Results :[id number] I have reviewed the latest lab and imaging results. Assessment & Plan Critical limb ischemia of left lower extremity Proceed with scheduled surgery left lower extremity femoral to eettu-tjm-lyls popliteal artery bypass graft. Extensive discussion had [...] Info) Description 12/19/2024 7:30 AM EDT Appointment [facility] [address] [place] [address] 12/19/2024 8:00 AM EDT Appointment [facility] [address] [place] [address] [address], [address] [place] [address] 12/19/2024 9:00 AM EDT Office Visit [facility] [address] [place] [address] Nathaly Nowak MD [address] [place], [place] [id number] [place] [address] Pending Results Name Type Priority Associated Diagnoses [...] PREPARE RBC STAT 10/17/2024 8:06 AM EDT IA VEIN BYPASS GRAFT,FEM-POP 10/17/2024 7:38 AM EDT [...] Comment 10/19/2024 11:42 AM EDT HEALTHCARE LAB Corporate Technical Recruiter ID Job Andrew 10/20/19 11:42 AM EDT HEALTHCARE LAB Device ID [id number] 10/19/2024 11:42 AM EDT [facility] Specimen Type POC Capillary 10/19/2024 11:42 AM EDT [facility] Blood Capillary blood specimen / Unknown 10/19/2024 11:40 AM EDT 10/19/2024 11:42 AM EDT Terrell Gautam MD LAB POINT OF CARE TE ST DOCKED DEVICE UNSOLICITED RESULTS Final Result [facility]ALTH[facility]ARE [facility] [address] [place] [address] * (ABNORMAL) Protime-INR (10/19/2024 8:25 AM EDT) Prothrombin Time 17.5(H) 12.0 - 14.3 sec LAB COAGULATION METHOD 10/19/2024 9:25 AM EDT [facility] INR 1.4(H) 0.9 - 1.1 LAB COAGULATION METHOD 10/19/2024 9:25 AM EDT [facility] Blood Venous blood specimen / Unknown Venipuncture / Unknown 10/19/2024 8:25 AM EDT 10/19/2024 8:43 AM EDT Narrative [facility] - 10/19/2024 9:25 AM EDT [...] recurrent PA INR 2.5 to 3.5 us Nirmal Cueto MD LAB BLOOD ORDERABLES Final Result Performing Organization Address [facility] Co de Phone Number [facility] [address] [place] [address] * (ABNORMAL) Phosphorus (10/19/2024 8:25 AM EDT) Phosphorus, Plasma 2.2(L) 2.5 - 4.5 mg/dL 10/19/2024 9:12 AM EDT [facility] Blood Venous blood specimen / Unknown Venipuncture / Unknown 10/19/2024 8:25 AM EDT 10/19/2024 8:43 AM EDT us Nirmal Cueto MD LAB BLOOD ORDERABLES Final Result Performing Organization Address [facility] Co de Phone Number [facility] [address] [place] [address] * Magnesium (10/19/2024 8:25 AM EDT) Magnesium, Plasma 2.1 1.9 - 2.4 mg/dL 10/19/2024 9:12 AM EDT [facility] Blood Venous blood specimen / Unknown Venipuncture / Unknown 10/19/2024 8:25 AM EDT 10/19/2024 8:43 AM EDT us Nirmal Cueto MD LAB BLOOD ORDERABLES Final Result Performing Organization Address [facility] Co de Phone Number [facility] [address] [place] [address] * (ABNORMAL) Basic metabolic panel (10/19/2024 8:25 AM EDT) Glucose, Plasma 191(H) 74 - 99 mg/dL 10/19/2024 9:12 AM EDT [facility] BUN, Plasma 18 8 - 23 mg/dL 10/19/2024 9:12 AM EDT [facility] Creatinine, Plasma 0.76 0.70 - 1.20 mg/dL 10/19/2024 9:12 AM EDT [facility] BUN/Creatinine Ratio 24 10/19/2024 9:12 AM EDT [facility] Sodium, Plasma 135(L) 136 - 145 mmol/L 10/19/2024 9:12 AM EDT [facility] Potassium, Plasma 4.1 3.6 - 4.9 mmol/L 10/19/2024 9:12 AM EDT [facility] Chloride, Plasma 104 97 - 107 mmol/L 10/19/2024 9:12 AM EDT [facility] CO2, Plasma 22 22 - 29 mmol/L 10/19/2024 9:12 AM EDT [facility] Anion Gap 9 6 - 16 mmol/L 10/19/2024 9:12 AM EDT [facility] Total Calcium, Plasma 8.4(L) 8.9 - 10.2 mg/dL 10/19/2024 9:12 AM EDT [facility] eGFRcr 99.7 mL/min/1.7 3m*2 10/19/2024 9:12 AM EDT [facility] Comment:Reported eGFRcr in m L/min/1.73m2 is based the CKD-EPI 2020 equation that does not use a race coefficient. Blood Venous blood specimen / Unknown Venipuncture / Unknown 10/19/2024 8:25 AM EDT 10/19/2024 8:43 AM EDT Nirmal Cueto MD LAB BLOOD ORDERABLES Final Result [facility] [address] [place] [address] * (ABNORMAL) CBC W/O Differential (10/19/2024 8:25 AM EDT) WBC Count 14.10(H) 3.70 - 10.30 10*3/uL LAB HEMATOLOGY METHOD 10/19/2024 8:52 AM EDT [facility] RBC Count 2.61(L) 4.60 - 6.10 10*6/uL LAB HEMATOLOGY METHOD 10/19/2024 8:52 AM EDT [facility] HGB 8.0(L) 13.7 - 17.5 g/dL LAB HEMATOLOGY METHOD 10/19/2024 8:52 AM EDT [facility] HCT 24.3(L) 40.0 - 51.0 % LAB HEMATOLOGY METHOD 10/19/2024 8:52 AM EDT [facility] Platelet Count 318 155 - 369 10*3/uL LAB HEMATOLOGY METHOD 10/19/2024 8:52 AM EDT [facility] MCV 93 79 - 98 fL LAB HEMATOLOGY METHOD 10/19/2024 8:52 AM EDT [facility] MCH 30.7 26.0 - 32.0 pg LAB HEMATOLOGY METHOD 10/19/2024 8:52 AM EDT [facility] MCHC 32.9 30.7 - 35.5 g/dL LAB HEMATOLOGY METHOD 10/19/2024 8:52 AM EDT [facility] RDW 13.4 11.5 - 14.5 % LAB HEMATOLOGY METHOD 10/19/2024 8:52 AM EDT [facility] MPV 9.6 8.8 - 12.5 fL LAB HEMATOLOGY METHOD 10/19/2024 8:52 AM EDT [facility] nRBC 0.0 <=0.0 per 100 WBCs LAB HEMATOLOGY METHOD 10/19/2024 8:52 AM EDT [facility] Blood Venous blood specimen / Unknown Venipuncture / Unknown 10/19/2024 8:25 AM EDT 10/19/2024 8:44 AM EDT Nirmal Cueto MD LAB BLOOD ORDERABLES Final Result [facility] [address] [place] [address] * (ABNORMAL) POCT glucose meter (10/19/2024 7:35 AM EDT) [facility] POCT Glucose 187(H) 74 - 99 mg/dL 10/19/2024 7:37 AM EDT [facility] Comment:Accuracy of a glucos e result [...] 10/19/2024 7:37 AM EDT [facility] Corporate Technical Recruiter ID Job Andrew 10/20/19 7:37 AM EDT HEALTHCARE LAB Device ID [id number] 10/19/2024 7:37 AM EDT [facility] Specimen Type POC Capillary 10/19/2024 7:37 AM EDT [facility] Blood Capillary blood specimen / Unknown 10/19/2024 7:35 AM EDT 10/19/2024 7:37 AM EDT us Terrell Gautam MD LAB POINT OF CARE TE ST DOCKED DEVICE UNSOLICITED RESULTS Final Result Performing Organization Address City/[facility]/ZIP Co de Phone Number [facility] [address] [place] [address] * (ABNORMAL) POCT glucose meter (10/18/2024 7:22 PM EDT) [facility] POCT Glucose 178(H) 74 - 99 mg/dL [...] for testing. Comment 10/18/2024 7:24 PM EDT [facility]ALTH[facility]ARE [facility] Corporate Technical Recruiter ID Mahesh Aldana 10/18/2024 7:24 PM EDT [facility]ALTH[facility]ARE LAB Device ID [id number] 10/18/2024 7:24 PM EDT [facility] Specimen Type POC Capillary 10/18/2024 7:24 PM EDT [facility] Blood Capillary blood specimen / Unknown 10/18/2024 7:22 PM EDT 10/18/2024 7:24 PM EDT us Terrell Gautam MD LAB POINT OF CARE TE ST DOCKED DEVICE UNSOLICITED RESULTS Final Result [facility] [address] [place] [address] * (ABNORMAL) POCT glucose meter (10/18/2024 6:07 PM EDT) [facility] POCT Glucose 167(H) 74 - 99 mg/dL [...] Comment 10/18/2024 6:09 PM EDT HEALTH[facility]ARE LAB Corporate Technical Recruiter ID David Parks 10/18/2024 6:09 PM EDT [facility] Device ID [id number] 10/18/2024 6:09 PM EDT [facility] Specimen Type POC Capillary 10/18/2024 6:09 PM EDT [facility] Blood Capillary blood specimen / Unknown 10/18/2024 6:07 PM EDT 10/18/2024 6:09 PM EDT Terrell Gautam MD LAB POINT OF CARE TE ST DOCKED DEVICE UNSOLICITED RESULTS Final Result Performing Organization Address [facility] Co de Phone Number [facility] [address] [place] [address] * (ABNORMAL) POCT glucose meter (10/18/2024 11:56 AM EDT) [facility] POCT Glucose 233(H) 74 - 99 mg/dL [...] 10/21/2024 7:42 AM EDT [facility] Corporate Technical Recruiter ID Venessa Marcano 10/21/2024 7:42 AM EDT [facility] Device ID [id number] 10/21/2024 7:42 AM EDT [facility]ALTH[facility]ARE LAB Specimen Type POC Capillary 10/21/2024 7:42 AM EDT [facility] Blood Capillary blood specimen / Unknown 10/18/2024 11:56 AM EDT 10/21/2024 7:42 AM EDT us Terrell Gautam MD LAB POINT OF CARE TE ST DOCKED DEVICE UNSOLICITED RESULTS Final Result Performing Organization Address City/[facility] Co de Phone Number [facility] [address] [place] [address] * (ABNORMAL) POCT glucose meter (10/18/2024 9:24 [...] 10/21/2024 7:42 AM EDT [facility] Corporate Technical Recruiter ID Emilia Alonso 7:42 AM EDT HEALTHCARE LAB Device ID [id number] 10/21/2024 7:42 AM EDT [facility]ALTH[facility]ARE LAB Specimen Type POC Venous 10/21/2024 7:42 AM EDT [facility] Blood Venous blood specimen / Unknown 10/18/2024 9:24 AM EDT 10/21/2024 7:42 AM EDT us Terrell Gautam MD LAB POINT OF CARE TE ST DOCKED DEVICE UNSOLICITED RESULTS Final Result Performing Organization Address City/[facility] Co de Phone Number [facility] [address] [place] [address] * (ABNORMAL) POCT glucose meter (10/18/2024 7:36 [...] Comment 10/18/2024 7:38 AM EDT [facility] Corporate Technical Recruiter ID Kizzy Godfrey 025 7:38 AM EDT HEALTHCARE LAB Device ID [id number] 10/18/2024 7:38 AM EDT HEALTHCARE LAB Specimen Type POC Capillary 10/18/2024 7:38 AM EDT [facility]ALTH[facility]ARE [facility] Blood Capillary blood specimen / Unknown 10/18/2024 7:36 AM EDT 10/18/2024 7:38 AM EDT us Terrell Gautam MD LAB POINT OF CARE TE ST DOCKED DEVICE UNSOLICITED RESULTS Final Result Performing Organization Address City/State/[facility] Co de Phone Number HEALTHCARE LAB [address] [place] [address] * (ABNORMAL) CBC (10/18/2024 2:09 AM EDT) WBC Count 16.71(H) 3.70 - 10.30 10*3/uL LAB HEMATOLOGY METHOD 10/18/2024 2:33 AM EDT [facility] RBC Count 2.78(L) 4.60 - 6.10 10*6/uL LAB HEMATOLOGY METHOD 10/18/2024 2:33 AM EDT [facility] HGB 8.5(L) 13.7 - 17.5 g/dL LAB HEMATOLOGY METHOD 10/18/2024 2:33 AM EDT [facility] HCT 25.7(L) 40.0 - 51.0 % LAB HEMATOLOGY METHOD 10/18/2024 2:33 AM EDT [facility] Platelet Count 324 155 - 369 10*3/uL LAB HEMATOLOGY METHOD 10/18/2024 2:33 AM EDT [facility] MCV 92 79 - 98 fL LAB HEMATOLOGY METHOD 10/18/2024 2:33 AM EDT [facility] MCH 30.6 26.0 - 32.0 pg LAB HEMATOLOGY METHOD 10/18/2024 2:33 AM EDT [facility] MCHC 33.1 30.7 - 35.5 g/dL LAB HEMATOLOGY METHOD 10/18/2024 2:33 AM EDT [facility] RDW 13.3 11.5 - 14.5 % LAB HEMATOLOGY METHOD 10/18/2024 2:33 AM EDT [facility] MPV 9.4 8.8 - 12.5 fL LAB HEMATOLOGY METHOD 10/18/2024 2:33 AM EDT [facility] nRBC 0.0 <=0.0 per 100 WBCs LAB HEMATOLOGY METHOD 10/18/2024 2:33 AM EDT [facility] Blood Venous blood specimen / Unknown Venipuncture / Unknown 10/18/2024 2:09 AM EDT 10/18/2024 2:25 AM EDT Nirmal Cueto MD LAB BLOOD ORDERABLES Final Result [facility] [address] [place] [address] * (ABNORMAL) Basic metabolic panel (10/18/2024 2:09 AM EDT) Glucose, Plasma 206(H) 74 - 99 mg/dL 10/18/2024 2:53 AM EDT [facility] BUN, Plasma 24(H) 8 - 23 mg/dL 10/18/2024 2:53 AM EDT [facility] Creatinine, Plasma 1.17 0.70 - 1.20 mg/dL 10/18/2024 2:53 AM EDT [facility] BUN/Creatinine Ratio 21 10/18/2024 2:53 AM EDT [facility] Sodium, Plasma 136 136 - 145 mmol/L 10/18/2024 2:53 AM EDT [facility] Potassium, Plasma 4.8 3.6 - 4.9 mmol/L 10/18/2024 2:53 AM EDT [facility] Chloride, Plasma 104 97 - 107 mmol/L 10/18/2024 2:53 AM EDT [facility] CO2, Plasma 22 22 - 29 mmol/L 10/18/2024 2:53 AM EDT [facility] Anion Gap 10 6 - 16 mmol/L 10/18/2024 2:53 AM EDT [facility] Total Calcium, Plasma 8.5(L) 8.9 - 10.2 mg/dL 10/18/2024 2:53 AM EDT [facility] eGFRcr 69.2 mL/min/1.7 3m*2 10/18/2024 2:53 AM EDT [facility] Comment:Reported eGFRcr in m L/min/1.73m2 is based the CKD-EPI 2020 equation that does not use a race coefficient. Blood Venous blood specimen / Unknown Venipuncture / Unknown 10/18/2024 2:09 AM EDT 10/18/2024 2:25 AM EDT Nirmal Cueto MD LAB BLOOD ORDERABLES Final Result Performing Organization Address City/[facility]/ZIP Co de Phone Number [facility] [address] [place] [address] * (ABNORMAL) Magnesium (10/18/2024 2:09 AM EDT) Magnesium, Plasma 1.8(L) 1.9 - 2.4 mg/dL 10/18/2024 2:53 AM EDT [facility] Blood Venous blood specimen / Unknown Venipuncture / Unknown 10/18/2024 2:09 AM EDT 10/18/2024 2:25 AM EDT Nirmal Cueto MD LAB BLOOD ORDERABLES Final Result [facility] [address] [place] [address] * Phosphorus (10/18/2024 2:09 AM EDT) Phosphorus, Plasma 3.7 2.5 - 4.5 mg/dL 10/18/2024 2:53 AM EDT [facility] Blood Venous blood specimen / Unknown Venipuncture / Unknown 10/18/2024 2:09 AM EDT 10/18/2024 2:25 AM EDT us Nirmal Cueto MD LAB BLOOD ORDERABLES Final Result Performing Organization Address [facility] Co de Phone Number [facility] [address] [place] [address] * (ABNORMAL) Protime-INR (10/18/2024 2:09 AM EDT) Prothrombin Time 14.5(H) 12.0 - 14.3 sec LAB COAGULATION METHOD 10/18/2024 2:53 AM EDT [facility] INR 1.1 0.9 - 1.1 LAB COAGULATION METHOD 10/18/2024 2:53 AM EDT [facility] Blood Venous blood specimen / Unknown Venipuncture / Unknown 10/18/2024 2:09 AM EDT 10/18/2024 2:25 AM EDT Narrative [facility] - 10/18/2024 2:53 AM EDT [...] of recurrent PA INR 2.5 to 3.5 Nirmal Cueto MD LAB BLOOD ORDERABLES Final Result Performing Organization Address [facility] Co de Phone Number [facility] [address] [place] [address] * (ABNORMAL) POCT glucose meter (10/18/2024 2:08 AM EDT) POCT Glucose 202(H) 74 - 99 mg/dL 10/18/2024 2:10 AM EDT [facility] Comment:Accuracy of a glucos e result [...] Comment 10/18/2024 2:10 AM EDT HEALTHCARE LAB Corporate Technical Recruiter ID Jourdan Grimes II 10/18/2024 2:10 AM EDT HEALTHCARE LAB Device ID [id number] 10/18/2024 2:10 AM EDT [facility]ALTH[facility]ARE LAB Specimen Type POC Capillary 10/18/2024 2:10 AM EDT [facility] Blood Capillary blood specimen / Unknown 10/18/2024 2:08 AM EDT 10/18/2024 2:10 AM EDT us Terrell Gautam MD LAB POINT OF CARE TE ST DOCKED DEVICE UNSOLICITED RESULTS Final Result Performing Organization Address [facility] Co de Phone Number HEALTHCARE LAB [address] [place] [address] * (ABNORMAL) POCT glucose meter (10/17/2024 10:07 PM EDT) [facility] POCT Glucose 300(H) 74 - 99 mg/dL [...] Comment 10/17/2024 10:10 PM EDT HEALTHCARE LAB Corporate Technical Recruiter ID Jourdan Grimes II 10/17/2024 10:10 PM EDT HEALTHCARE LAB Device ID [id number] 10/17/2024 10:10 PM EDT HEALTHCARE LAB Specimen Type POC Capillary 10/17/2024 10:10 PM EDT [facility] LAB Blood Capillary blood specimen / Unknown 10/17/2024 10:07 PM EDT 10/17/2024 10:10 PM EDT us Terrell Gautam MD LAB POINT OF CARE TE ST DOCKED DEVICE UNSOLICITED RESULTS Final Result Performing Organization Address City/[facility]/ZIP Co de Phone Number HEALTHCARE LAB [address] [place] [address] * (ABNORMAL) POCT glucose meter (10/17/2024 8:07 PM EDT) [facility] POCT Glucose 391(H) 74 - 99 mg/dL [...] Comment 10/17/2024 8:10 PM EDT [facility]ALTH[facility]ARE LAB Corporate Technical Recruiter ID Jourdan Grimes II 10/17/2024 8:10 PM EDT HEALTHCARE LAB Device ID [id number] 10/17/2024 8:10 PM EDT HEALTH[facility]ARE LAB Specimen Type POC Capillary 10/17/2024 8:10 PM EDT [facility] Blood Capillary blood specimen / Unknown 10/17/2024 8:07 PM EDT 10/17/2024 8:10 PM EDT us Terrell Gautam MD LAB POINT OF CARE TE ST DOCKED DEVICE UNSOLICITED RESULTS Final Result [facility] [address] [place] [address] * (ABNORMAL) POCT glucose meter (10/17/2024 4:01 PM EDT) [facility] POCT Glucose 249(H) 74 - 99 mg/dL [...] for testing. Comment 10/17/2024 4:03 PM EDT [facility] Corporate Technical Recruiter ID Keisha Waller 10/17/2024 4:03 PM EDT HEALTHCARE LAB Device ID [id number] 10/17/2024 4:03 PM EDT HEALTHCARE LAB Specimen Type POC Capillary 10/17/2024 4:03 PM EDT [facility] LAB Blood Capillary blood specimen / Unknown 10/17/2024 4:01 PM EDT 10/17/2024 4:03 PM EDT us Terrell Gautam MD LAB POINT OF CARE TE ST DOCKED DEVICE UNSOLICITED RESULTS Final Result Performing Organization Address City/[facility] Co de Phone Number HEALTHCARE LAB [address] [place] [address] * (ABNORMAL) POCT glucose meter (10/17/2024 1:25 PM EDT) [facility] Signature POCT Glucose 225(H) 74 - 99 [...] Comment 10/17/2024 1:27 PM EDT HEALTHCARE LAB Corporate Technical Recruiter ID Kizzy Godfrey 025 1:27 PM EDT [facility] Device ID [id number] 10/17/2024 1:27 PM EDT HEALTHCARE LAB Specimen Type POC Capillary 10/17/2024 1:27 PM EDT [facility]ALTH[facility]ARE LAB Blood Capillary blood specimen / Unknown 10/17/2024 1:25 PM EDT 10/17/2024 1:27 PM EDT us Tererll Gautam MD LAB POINT OF CARE TE ST DOCKED DEVICE UNSOLICITED RESULTS Final Result Performing Organization Address City/[facility] Co de Phone Number HEALTHCARE LAB [address] [place] [address] * [place] Less than 1 Hour Intraoperative (10/17/2024 1:18 PM EDT) Narrative IMAGING - 10/17/2024 2:05 PM EDT Images were obtained for surgical purposes. See Terrell Gautam's surgical note in the patient's chart for the findings. us Terrell Gautam MD IMG FLUOROSCOPY PROCEDURES Fi nal Result IMAGING * POCT ACT (10/17/2024 12:23 PM EDT) Pathologist [facility] ACT+ (HIGH RANGE) 211 68 - 600 Seconds 10/29/2024 7:28 AM EDT HEALTHCARE LAB Corporate Technical Recruiter ID Donna Mcmillan 10/29/2024 7:28 AM EDT HEALTHCARE LAB ACT Device ID [id number] 10/29/2024 7:28 AM EDT [facility] Comment 10/29/2024 7:28 AM EDT [facility] Comment: ACT performed by staff [...] UNSOLICITED RESULTS Final Result Performing Organization Address [facility] Co de Phone Number [facility] [address] LAB [address] [place] [address] * (ABNORMAL) Blood gas, arterial (10/17/2024 11:48 AM EDT) pH, Arterial 7.34 7.31 - 7.42 LAB HEMATOLOGY METHOD 10/17/2024 11:54 AM EDT [facility] pCO2, Arterial 41 32 - 45 mmHg LAB HEMATOLOGY METHOD 10/17/2024 11:54 AM EDT [facility] pO2, Arterial 202 >80 mmHg LAB HEMATOLOGY METHOD 10/17/2024 11:54 AM EDT [facility] SO2, Measured, Arterial 100(H) 94 - 98 % LAB HEMATOLOGY METHOD 10/17/2024 11:54 AM EDT [facility] Base Excess, Arterial -3.2(L) -2.0 - 3.0 mmol/L LAB HEMATOLOGY METHOD 10/17/2024 11:54 AM EDT [facility] Bicarbonate, Calculated, Arterial 22 22 - 26 mmol/L LAB HEMATOLOGY METHOD 10/17/2024 11:54 AM EDT [facility] Hematocrit, Whole Blood 28.6(L) 40.0 - 51.0 % LAB HEMATOLOGY METHOD 10/17/2024 11:54 AM EDT [facility] Sodium, Whole Blood 137 136 - 145 mmol/L LAB HEMATOLOGY METHOD 10/17/2024 11:54 AM EDT [facility] Potassium, Whole Blood 4.5 3.6 - 4.9 mmol/L LAB HEMATOLOGY METHOD 10/17/2024 11:54 AM EDT [facility] Chloride, Whole Blood 112(H) 97 - 107 mmol/L LAB HEMATOLOGY METHOD 10/17/2024 11:54 AM EDT [facility] Glucose, Whole Blood 201(H) 74 - 99 mg/dL LAB HEMATOLOGY METHOD 10/17/2024 11:54 AM EDT [facility] Ionized Calcium, Whole Blood 4.8 4.6 - 5.1 mg/dL LAB HEMATOLOGY METHOD 10/17/2024 11:54 AM EDT [facility] Lactate, Arterial, Whole Blood 2.3(H) 0.5 - 1.6 mmol/L LAB HEMATOLOGY METHOD 10/17/2024 11:54 AM EDT [facility] Blood Arterial blood specimen / Unknown Arterial Puncture / Unknown 10/17/2024 11:48 AM EDT 10/17/2024 11:53 AM EDT us Jenna Lopez CARE MGR LAB BLOOD ORDERABLES Final Re sult [facility] [address] [place] [address] * POCT ACT (10/17/2024 11:41 AM EDT) ACT+ (HIGH RANGE) 175 68 - 600 Seconds 10/29/2024 7:28 AM EDT [facility] Corporate Technical Recruiter ID Oneyda Alicea 10/29/2024 7:28 AM EDT HEALTHCARE LAB ACT Device ID [id number] 10/29/2024 7:28 AM EDT [facility] Comment 10/29/2024 7:28 AM EDT [facility] Comment: ACT performed by staff [...] 11:41 AM EDT 10/29/2024 7:28 AM EDT Terrell Gautam MD LAB POINT OF CARE TE ST DOCKED DEVICE UNSOLICITED RESULTS Final Result Performing Organization Address City/[facility]/ZIP Co de Phone Number HEALTHCARE LAB [address] LAB [address] [place] [address] * POCT ACT (10/17/2024 11:11 AM EDT) [facility] ACT+ (HIGH RANGE) 252 68 - 600 Seconds 10/29/2024 7:28 AM EDT [facility] Corporate Technical Recruiter ID Donna Mcmillan 10/29/2024 7:28 AM EDT HEALTHCARE LAB ACT Device ID [id number] 10/29/2024 7:28 AM EDT [facility] Comment 10/29/2024 7:28 AM EDT [facility] Comment: ACT performed by staff [...] UNSOLICITED RESULTS Final Result Performing Organization Address City/[facility]/ZIP Co de Phone Number HEALTHCARE LAB [address] [place] [address] * (ABNORMAL) Blood gas, arterial (10/17/2024 10:46 AM EDT) pH, Arterial 7.35 7.31 - 7.42 LAB HEMATOLOGY METHOD 10/17/2024 10:56 AM EDT [facility] pCO2, Arterial 42 32 - 45 mmHg LAB HEMATOLOGY METHOD 10/17/2024 10:56 AM EDT [facility] pO2, Arterial 161 >80 mmHg LAB HEMATOLOGY METHOD 10/17/2024 10:56 AM EDT [facility] SO2, Measured, Arterial 100(H) 94 - 98 % LAB HEMATOLOGY METHOD 10/17/2024 10:56 AM EDT [facility] Base Excess, Arterial -2.2(L) -2.0 - 3.0 mmol/L LAB HEMATOLOGY METHOD 10/17/2024 10:56 AM EDT [facility] Bicarbonate, Calculated, Arterial 23 22 - 26 mmol/L LAB HEMATOLOGY METHOD 10/17/2024 10:56 AM EDT [facility] Hematocrit, Whole Blood 29.9(L) 40.0 - 51.0 % LAB HEMATOLOGY METHOD 10/17/2024 10:56 AM EDT [facility] Sodium, Whole Blood 138 136 - 145 mmol/L LAB HEMATOLOGY METHOD 10/17/2024 10:56 AM EDT [facility] Potassium, Whole Blood 4.0 3.6 - 4.9 mmol/L LAB HEMATOLOGY METHOD 10/17/2024 10:56 AM EDT [facility] Chloride, Whole Blood 110(H) 97 - 107 mmol/L LAB HEMATOLOGY METHOD 10/17/2024 10:56 AM EDT [facility] Glucose, Whole Blood 174(H) 74 - 99 mg/dL LAB HEMATOLOGY METHOD 10/17/2024 10:56 AM EDT [facility] Ionized Calcium, Whole Blood 5.1 4.6 - 5.1 mg/dL LAB HEMATOLOGY METHOD 10/17/2024 10:56 AM EDT [facility] Lactate, Arterial, Whole Blood 1.4 0.5 - 1.6 mmol/L LAB HEMATOLOGY METHOD 10/17/2024 10:56 AM EDT [facility] Blood Arterial blood specimen / Unknown Arterial Puncture / Unknown 10/17/2024 10:46 AM EDT 10/17/2024 10:54 AM EDT us Jenna Lopez CARE MGR LAB BLOOD ORDERABLES Final Re sult [facility] [address] [place] [address] * POCT ACT (10/17/2024 10:37 AM EDT) ACT+ (HIGH RANGE) 206 68 - 600 Seconds 10/29/2024 7:28 AM EDT HEALTHCARE LAB Corporate Technical Recruiter ID Donna Mcmillan 10/29/2024 7:28 AM EDT [facility] ACT Device ID [id number] 10/29/2024 7:28 AM EDT [facility] Comment 10/29/2024 7:28 AM EDT [facility] Comment: ACT performed by staff at point [...] UNSOLICITED RESULTS Final Result Performing Organization Address [facility] Co de Phone Number [facility] [address] [place] [address] * Surgical Pathology Exam (10/17/2024 10:27 AM EDT) Case Report Surgical Pathology Case: [id number] Authorizing Provider: Terrell Gautam MD Collected: 10/17/2024 1027 Ordering Location: [facility] A OPERATING ROOM Received: 10/17/2024 1325 Pathologist: Haydee Osborne MD Specimen: Other (specify site), left common femoral plaque 10/21/2024 10:16 AM EDT [facility] Final Diagnosis A. LEFT COMMON FEMORAL PLAQUE, EXCISION: - CALCIFIED PLAQUE 10/21/2024 10:16 AM EDT [facility] at 1016 EDT Clinical Information Critical limb ischemia of left lower extremity [I70.222] 10/21/2024 10:16 AM EDT [facility] Gross Description A. LEFT COMMON FEMORAL PLAQUE Received in formalin labeled l eft common femoral plaque , is one aggregate of red-gabriel hard portions of plaque measuring 3.7 x 2.5 x 0.9 cm. The specimen is serially sectioned and support representative sections are submitted in cassette A1. Cold Time: <1m Kenia C Yola 10/21/2024 10:16 AM EDT [facility] Note: A resident was involved in the service. I attest I examined the relevant preparations for the specimens and confirmed the diagnosis or interpretation. 10/21/2024 10:16 AM EDT [facility] Tissue Topography unknown / Unknown 10/17/2024 10:27 AM EDT 10/17/2024 1:25 PM EDT Comment:Pre-op diagnosis: Critical limb ischemia of left lower extremity [I70.222] us Terrell Gautam MD LAB PATHOLOGY ORDERABLES Gwen grimaldo Result [facility] [address] [place] [address] * POCT ACT (10/17/2024 10:03 AM EDT) ACT+ (HIGH RANGE) 244 68 - 600 Seconds 10/29/2024 7:28 AM EDT HEALTHCARE LAB Corporate Technical Recruiter ID Donna Mcmillan 10/29/2024 7:28 AM EDT HEALTHCARE LAB ACT Device ID [id number] 10/29/2024 7:28 AM EDT HEALTHCARE LAB Comment 10/29/2024 7:28 AM EDT [facility] Comment: ACT performed by staff [...] ST DOCKED DEVICE UNSOLICITED RESULTS Final Result [facility] [address] LAB [address] [place] [address] * (ABNORMAL) Blood gas, arterial (10/17/2024 9:45 AM EDT) pH, Arterial 7.37 7.31 - 7.42 LAB HEMATOLOGY METHOD 10/17/2024 9:55 AM EDT [facility] pCO2, Arterial 43 32 - 45 mmHg LAB HEMATOLOGY METHOD 10/17/2024 9:55 AM EDT [facility] pO2, Arterial 177 >80 mmHg LAB HEMATOLOGY METHOD 10/17/2024 9:55 AM EDT [facility] SO2, Measured, Arterial 100(H) 94 - 98 % LAB HEMATOLOGY METHOD 10/17/2024 9:55 AM EDT [facility] Base Excess, Arterial -0.5 -2.0 - 3.0 mmol/L LAB HEMATOLOGY METHOD 10/17/2024 9:55 AM EDT [facility] Bicarbonate, Calculated, Arterial 25 22 - 26 mmol/L LAB HEMATOLOGY METHOD 10/17/2024 9:55 AM EDT [facility] Hematocrit, Whole Blood 30.0(L) 40.0 - 51.0 % LAB HEMATOLOGY METHOD 10/17/2024 9:55 AM EDT [facility] Sodium, Whole Blood 137 136 - 145 mmol/L LAB HEMATOLOGY METHOD 10/17/2024 9:55 AM EDT [facility] Potassium, Whole Blood 4.3 3.6 - 4.9 mmol/L LAB HEMATOLOGY METHOD 10/17/2024 9:55 AM EDT [facility] Chloride, Whole Blood 108(H) 97 - 107 mmol/L LAB HEMATOLOGY METHOD 10/17/2024 9:55 AM EDT [facility] Glucose, Whole Blood 191(H) 74 - 99 mg/dL LAB HEMATOLOGY METHOD 10/17/2024 9:55 AM EDT [facility] Ionized Calcium, Whole Blood 5.0 4.6 - 5.1 mg/dL LAB HEMATOLOGY METHOD 10/17/2024 9:55 AM EDT [facility] Lactate, Arterial, Whole Blood 1.3 0.5 - 1.6 mmol/L LAB HEMATOLOGY METHOD 10/17/2024 9:55 AM EDT [facility] Blood Arterial blood specimen / Unknown Arterial Line / Unknown 10/17/2024 9:45 AM EDT 10/17/2024 9:52 AM EDT us Jenna Lopez CRNA LAB BLOOD ORDERABLES Final Re sult [facility] [address] [place] [address] * (ABNORMAL) Blood gas, arterial (10/17/2024 8:47 AM EDT) pH, Arterial 7.37 7.31 - 7.42 LAB HEMATOLOGY METHOD 10/17/2024 8:59 AM EDT [facility] pCO2, Arterial 43 32 - 45 mmHg LAB HEMATOLOGY METHOD 10/17/2024 8:59 AM EDT [facility] pO2, Arterial 205 >80 mmHg LAB HEMATOLOGY METHOD 10/17/2024 8:59 AM EDT [facility] SO2, Measured, Arterial 100(H) 94 - 98 % LAB HEMATOLOGY METHOD 10/17/2024 8:59 AM EDT [facility] Base Excess, Arterial -0.3 -2.0 - 3.0 mmol/L LAB HEMATOLOGY METHOD 10/17/2024 8:59 AM EDT [facility] Bicarbonate, Calculated, Arterial 25 22 - 26 mmol/L LAB HEMATOLOGY METHOD 10/17/2024 8:59 AM EDT [facility] Hematocrit, Whole Blood 31.3(L) 40.0 - 51.0 % LAB HEMATOLOGY METHOD 10/17/2024 8:59 AM EDT [facility] Sodium, Whole Blood 138 136 - 145 mmol/L LAB HEMATOLOGY METHOD 10/17/2024 8:59 AM EDT [facility] Potassium, Whole Blood 4.0 3.6 - 4.9 mmol/L LAB HEMATOLOGY METHOD 10/17/2024 8:59 AM EDT [facility] Chloride, Whole Blood 108(H) 97 - 107 mmol/L LAB HEMATOLOGY METHOD 10/17/2024 8:59 AM EDT [facility] Glucose, Whole Blood 162(H) 74 - 99 mg/dL LAB HEMATOLOGY METHOD 10/17/2024 8:59 AM EDT [facility] Ionized Calcium, Whole Blood 5.2(H) 4.6 - 5.1 mg/dL LAB HEMATOLOGY METHOD 10/17/2024 8:59 AM EDT [facility] Lactate, Arterial, Whole Blood 1.7(H) 0.5 - 1.6 mmol/L LAB HEMATOLOGY METHOD 10/17/2024 8:59 AM EDT [facility] Blood Arterial blood specimen / Unknown Arterial Puncture / Unknown 10/17/2024 8:47 AM EDT 10/17/2024 8:58 AM EDT us Jenna Lopez CRNA LAB BLOOD ORDERABLES Final Re sult Performing Organization Address City/State/[facility] de Phone Number [facility] [address] [place] [address] * POCT ACT (10/17/2024 8:46 AM EDT) ACT+ (HIGH RANGE) 101 68 - 600 Seconds 10/29/2024 7:28 AM EDT HEALTHCARE LAB Corporate Technical Recruiter ID Donna Mcmillan 10/29/2024 7:28 AM EDT [facility] ACT Device ID [id number] 10/29/2024 7:28 AM EDT HEALTHCARE LAB Comment 10/29/2024 7:28 AM EDT [facility] Comment: ACT performed by staff [...] RESULTS Final Result [facility] [address] LAB [address] [place] [address] * Type and Screen (10/17/2024 7:19 AM EDT) [facility] ABO/Rh A Negative 10/17/2024 7:04 AM EDT BLOOD BANK Antibody Screen Negative 10/17/2024 7:04 AM EDT BLOOD BANK Specimen Expiration 10/20/2024 23:59 10/17/2024 7:04 AM EDT BLOOD BANK Blood Venous blood specimen / Unknown Venipuncture / Unknown 10/17/2024 7:19 AM EDT 10/17/2024 7:28 AM EDT Maria Fernanda Mccallum MD LAB BLOOD BANK TEST ORDERAB LES Final Result Performing Organization Address [facility] de Phone Number BLOOD BANK [address] [place] [address], * (ABNORMAL) POCT glucose meter (10/17/2024 6:44 AM EDT) [facility] POCT Glucose 178(H) 74 - 99 mg/dL [...] 10/17/2024 6:49 AM EDT [facility] Corporate Technical Recruiter ID Hunter Burroughs 10/18/19 6:49 AM EDT [facility] Device ID [id number] 10/17/2024 6:49 AM EDT [facility] Specimen Type POC Capillary 10/17/2024 6:49 AM EDT HEALTHCARE LAB Blood Capillary blood specimen / Unknown 10/17/2024 6:44 AM EDT 10/17/2024 6:49 AM EDT us Terrell Gautam MD LAB POINT OF CARE TE ST DOCKED DEVICE UNSOLICITED RESULTS Final Result [facility] [address] [place] [address] documented in this encounter Visit Diagnoses Diagnosis [...] Starting on Yadira 10/17/24 at 1225, Until Mon10/17/24 at 1414, Routine, Recovery (Phase I only), [...] Intravenous, Every 6 hours PRN, Starting on Mon10/19/24 at 0418, Until Mon10/19/24 at 1439, Routine, high blood pressure, For [...] 1 Application Nasal, Once, 1 dose, On Mon10/17/24 at 0745, Routine Given 10/17/2024 7:07 AM [...] times daily, First dose on Mon10/17/24 at 2100, Until Discontinued, Routine Given 10/19/2024 [...] Provider: Keisha Waller RN - Reason: Order changed)2103 (Given - Provider: Jourdan Grimes II, RN) [...] Unit(Inpatient) 1414 (Given - Provider: Keisha Waller, RN) 0809 (Given - Provider: Emilia Alonso, CHRISTIAN) 0952 (Given - Provider: Keyla Chow) docusate sodium (Colace) capsule 100 mg 100 mg, Oral, 2 times daily, First dose on Mon10/17/24 at 1400, Until Discontinued, Routine, Recovery(Phase II-Outpatient)/On Unit(Inpatient) 1414 (Given - Provider: Keisha Waller, RN)2012 (Given - Provider: Jourdan Grimes II, RN) 08 (Given - Provider: Emilia Alonso, RN)2001 (Given - Provider: Kassie Mao, CHRISTIAN) 09 [...] 2229 (Given - Provider: Jourdan Grimes II, RN) 2002 (Given - Provider: Kassie Mao, CHRISTIAN) insulin lispro (Admelog) 100 units/mL injection - Correction - Resistant Dose 0-10 Units, Subcutaneous, 3 times daily with meals, First dose on Mon10/18/24 at 1230, Until Discontinued, Routine 1204 (Given - Provider: Venessa Marcano RN)1814 (Not Given - Provider: Keyla Chow - [...] nightly (2099 & 299), First dose on Yadira 10/17/24 at 2100, [...] RN - Reason: Order parameters not met) 022 (Not Given - Provider: Kassie Mao RN [...] Routine 0105 (Medication Applied - Provider: Kassie Mao RN)1239 (Due: Medication Removed - Provider: Automatic Discharge Provider - Comment: Time automatically adjusted from order being discontinued) lisinopril tablet 5 mg 5 mg, Oral, Daily, First dose on Mon10/18/24 at 1230, Until Discontinued, Routine 1204 (Given - Provider: Venessa Marcano RN) 0952 (Given - Provider: Keyla Chow) magnesium sulfate IVPB 2 g (COMPLETED) 2 g, Intravenous, Once, 1 dose, On Mon10/18/24 at 0945, Routine 1008 (New Bag - Provider: Emilia Alonso RN) metoprolol tartrate (Lopressor) tablet 100 mg 100 mg, Oral, 2 times daily, First dose on Mon10/17/24 at 1400, Until Discontinued, Routine, Recovery(Phase II-Outpatient)/On Unit(Inpatient) 1414 (Given - Provider: Keisha Waller RN)2012 (Given - Provider: Jourdan Grimes II RN) 08 (Given - Provider: Emilia Alonso RN)2001 (Given - Provider: Kassie Mao, CHRISTIAN) 09 (Given - Provider: Keyla Chow) Povidone-Iodine 5 % swab solution 1 Application (COMPLETED) Nasal, Once, 1 dose, On Mon10/17/24 at 0745, Routine 07 (Given - Provider: Tanja Denise RN) pravastatin (Pravachol) tablet 40 mg 40 mg, [...] times daily, First dose on Mon10/17/24 at 2100, Until Discontinued, Routine 2012 (Given - Provider: Jourdan Grimes II, RN) 08 (Given - Provider: Emilia Alonso, CHRISTIAN)2001 (Given - Provider: Kassie Mao, CHRISTIAN) 09 (Given - Provider: Keyla Chow) sodium chloride 0.9 % flush 10 mL (CANCELED)(Linked Group 1) 10 mL, Intravenous, Every 12 hours, First dose on Mon10/17/24 at 0745, Until Discontinued, Routine, Holding - Preprocedure 07 (Given - Provider: Tanja Denise, CHRISTIAN)194 (Given - Provider: Jourdan Grimes II, CHRISTIAN) [...] [place], CHRISTIAN)1109 (Given - Provider: Emilia Alonso RN) 0239 [...] documented as of this encounter Care Teams 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
--- OUTSIDE RECORDS SUMMARY | 2024-10-17 07:51 | XMS_ITS | Encounter Summary ---
Author Organization [facility] Address [address] [id number] Care Team Providers Care Flow Nurse Name Role Phone Asad Victor MD Primary Care Provider + [phone] Reason for Visit * Auth/Cert (Routine) Specialty Diagnoses / Procedures Referred By Contac t Referred To Contact Diagnoses Critical limb ischemia of left lower extremity Critical limb ischemia of left lower extremity [I70.222] Procedures PA VEIN BYPASS GRAFT,FEM-POP CREATION, BYPASS, ARTERIAL, FEMORAL TO POPLITEAL Terrell Gautam MD [address] [facility] [address] [place] [address] Phone: tel: fax: [facility]PERATING ROOM [address] [place] [address] Phone: tel: Referral ID Status Reason Start Date Expiration Date Visits Re quested Visits Authorized [id number] 1 1 Encounter Details Date Type Department Care Team (Late st Contact Info) Description 10/17/2024 7:51 AM EDT Anesthesia Event [facility] RO[facility] [address] [place] [id number] Maria Fernanda Mccallum MD [address] [place] [address] Anesthesia Record Procedure Summary Procedure [...] Hand; Site Prep: Chlorhexidine ; Local Anesth: [place]; Technique: Anatomical landmarks; Inserted by: CHRISTIAN Acuna; [...] were you homeless or living in a snf (including now)? No 10/18/2024 CAGE ASSESSMENT Answer [...] drink first t dino in the morning (EYE-FILM EDITOR) to steady your nerves or to get [...] * Anesthesia Postprocedure Evaluation - Jenna Lopez, INSULATION MANAGER - 10/17/2024 1:29 PM EDT Patient: Mono [...] by Swetha Villareal MD Staffing Performed: ISH INSULATION MANAGER: Jenna Lopez CRNA * Anesthesia Procedure Notes - Jenna Lopez CRNA - 10/17/2024 9:00 AM EDT Associated Order(s): Airway Airway Date/Time: 10/17/2024 8:03 AM Reason: elective Airway not difficult General Information and Staff Patient location during procedure: OR INSULATION MANAGER: Jenna Lopez CRNA Performed: INSULATION MANAGER Patient Condition Indications for airway management: anesthesia [...] note 09/25/24 (media) + CAD s/p multiple IA's and 3V CABG 02/2019, 2 stents prior to CABG Atrial Fibrillation with RVR s/p CABG + carotid artery disease s/p R CEA 2016 + 3rd degree AV block ANNOUNCER-P placed 08/2023 for Wenkeback with 11 sec pause + HLD + HTN - controlled + PAD 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 CORONARY ANGIOPLASTY Left Coronary Angiography With Concomitant Left Heart Catheterization from [employer] ??? CORONARY ARTERY BYPASS GRAFT N/A 2018 [...] Info) Description 12/19/2024 7:30 AM EDT Appointment [facility] [address] [place] [address] 12/19/2024 8:00 AM EDT Appointment [facility] [address] [place] [address] 12/19/2024 9:00 AM EDT Office Visit [facility] [address] [place] [address] Nathaly Nowak MD [address] [facility] [address] [place] [address] documented as of this encounter Goals Goal [...] ANESTHESIA PLACEHOLDER Routine 10/17/2024 8:03 AM EDT PA AN ELECTIVE ENDOTRACHEAL AIRWAY Routine 10/17/2024 8:03 [...] by Swetha Villareal MD Staffing Performed: ISH INSULATION MANAGER: Jenna Lopez CRNA Maria Fernanda Mccallum MD ANESTHESIA ORDERABLES Edite d Result - Final * PA AN ELECTIVE ENDOTRACHEAL AIRWAY, PB ANESTHESIA PLACEHOLDER (10/17/2024 8:03 AM EDT) Jenna Martinez CRNA - 10/17/2024 8:03 AM EDT Jenna Lopez CRNA 10/17/2024 9:00 AM Airway Date/Time: 10/17/2024 8:03 AM Reason: elective Airway not difficult General Information and Staff Patient location during procedure: OR INSULATION MANAGER: Jenna Lopez CRNA Performed: INSULATION MANAGER Patient Condition Indications for airway management: anesthesia [...] Mccallum MD ANESTHESIA ORDERABLES Final Result * [facility] AN POCUS CARDIAC PROCDOC (10/17/2024 7:18 [...] Trace AR. The images were Saved in [employer] E. The study was technically adequate. Comments: [...] documented as of this encounter Care Teams Flow Nurse Relationship Specialty Start Date End Date Asad Victor MD [address] [facility] [place] [phone] PCP - General 10/07/22 documented as of this encounter
--- OUTSIDE RECORDS SUMMARY | 2024-10-17 08:00 | XMS_ITS | Encounter Summary ---
Author Organization [facility] Address [address] [place] [address] Care Team Providers Care Sales Force Administrator Name Role Phone Asad Victor MD Primary Care Provider + [phone] Reason for Visit * Auth/Cert (Routine) Specialty Diagnoses / Procedures Referred By Contac t Referred To Contact Diagnoses Critical limb ischemia of left lower extremity Critical limb ischemia of left lower extremity [I70.222] Procedures ID VEIN BYPASS GRAFT,FEM-POP CREATION, BYPASS, ARTERIAL, FEMORAL TO POPLITEAL Terrell Gautam MD [address] [address] Phone: tel: fax: [facility] [address] [place] [address] Phone: tel: Referral ID Status Reason Start Date Expiration Date Visits Re quested Visits Authorized [id number] 1 1 Encounter Details Date Type Department Care Team (Late st Contact Info) Description 10/17/2024 8:00 AM EDT - 10/17/2024 2:50 PM EDT Surgery [facility] [address] [place] [address] Terrell Gautam MD [address] [address] CREATION, BYPASS, ARTERIAL, FEMORAL TO POPLITEAL [47984 (CPT )] Surgery Details Date/Time Status Location [...] in the past 12 m [facility], were you homeless or living [...] drink first t dino in the morning (EYE-MATERIALS INTERN) to steady your nerves or to get rid of a hangover? 0 10/18/2021 CAGE Questionnaire Score 0 022 Utilities Answer Date Recorded In the past 12 months has th e Olery, gas, oil, or water Upkeep Charlie threatened to shut off services in your [...] provided Taken 10/17/20242107 by Jourdan Grimes II, timber management assistant Review/Management: medications reviewed Problem: Skin Injury Risk Increased Goal: Skin Health and Integrity 10/19/2024 1145 by Keyla Chow Outcome: Met 10/19/2024 1048 by Keyla Chwo Outcome: Ongoing, Progressing Problem: Surgery Nonspecified Goal: [...] Ongoing, Progressing Intervention: Promote Activity and Functional Quinter Flowsheets (Taken 10/19/2024 1048) Self-Care Promotion: BADL personal objects within reach meal set-up provided * Yuni Ramires - Keyla Chow - 10/19/2024 11:45 AM EDT Images from the original note were not included. [id number] After Peripheral Artery Bypass Surgery: In the [...] home. Last Reviewed Date: 2023 00:00:00 ?? [id number] [employer]. All rights reserved. This information is not intended as a substitute for professional medical care. Always follow your healthcare professional's instructions. * Progress Notes - Emelina Friend - 10/19/2024 11:44 AM EDT Case Management Adult Progress Note Bev Bobby 64 y.o. male CSN: [id number] Admission: 10/17/2024 6:21 AM Primary Problem: Critical [...] if any other needs arise. Emelina Friend TELEMARKETING AGENT, DROP MAN Social Work Case Management * Yuni Ramires - Keyla Chow - 10/19/2024 11:44 AM EDT Images from the original note were not included. [id number] Peripheral Artery Disease (PAD) Peripheral artery disease [...] cause. Last Reviewed Date: 2024 00:00:00 ?? [id number] [employer]. All rights reserved. This information is not intended as a substitute for professional medical care. Always follow your healthcare professional's instructions. * Yuni Ramires - Keyla Chow - 10/19/2024 11:44 AM EDT Images from the original note were not included. [id number] Leg Artery Emergencies: Critical Limb Ischemia (CLI) [...] appointments. Last Reviewed Date: 2023 00:00:00 ?? [id number] [employer]. All rights reserved. This information is not intended as a substitute for professional medical care. Always follow your healthcare professional's instructions. * Discharge Summary - Dandy Baltazar MD - 10/19/2024 11:31 AM EDT Hospitalization Admit Date/Time: 10/17/2024 6:21 AM Admitting Attending: Terrell Gautam Discharge Date: 10/19/24 Discharge Attending Physician: Nirmal Cueto MD PCP name and Address: Asad Victor MD (Inactive) [address] [facility] [place] [address] Referring provider name and address: Timothy Marques PA [address] [facility] [place] [address] Chief Concern, Brief History of Present Illness, and Hospital Course Bev Bobby is an 64 y.o. 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 He [...] Medications These medications were sent to [facility] [place], [place] - [address] [facility] [address] [facility] [id number] acetaminophen 500 MG tablet clopidogrel 75 MG [...] of water. 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 He [...] provided Taken 10/17/20242107 by Jourdan Grimes II timber management assistant Review/Management: medications reviewed Problem: Skin Injury Risk [...] Ongoing, Progressing Intervention: Promote Activity and Functional Quinter Flowsheets (Taken 10/19/2024 1048) Self-Care Promotion: BADL [...] evaluation. PARTICIPANTS IN CARE Visitors Present No City Treasurer (if applicable) PRESENTATION Oxygen Oxygen Therapy: None [...] Level of Mobility Ambulatory- household only Mobility Quinter Independent gait with device (rollator) History of [...] numbness in rodney) BED MOBILITY Level of Quinter Physical/Non- physical Assist Adaptive Equipment Utilized Rolling/ Turning Scooting/ Bridging Modified independence (anteriorly to EOB) Bed rails Supine to Sit Modified Quinter (to the right) (HOB flat) Bed rails Sit to Supine Interventions HOB flat to simulate home environment TRANSFERS Level of Quinter Physical/Non- physical Assist Adaptive Equipment Utilized Sit [...] stable surfaces during transitions. AMBULATION Level of Quinter Distance Adaptive Equipment Utilized Ambulation Standby assist, [...] Posture: Forward head, Rounded shoulders Level of Quinter Balance Support Interventions Static Sit Independent Right [...] Assessments Standardized Assessments: AMPA 6-Clicks Mobility Assessment [facility] 6-Clicks Mobility Assessment Difficulty patient has turning [...] evaluation/session. Participants in Care Family/Caregiver Present: No City Treasurer: Not Applicable Presentation Oxygen Therapy: None (Room [...] Level of Mobility: Ambulatory- household only Mobility Quinter: Independent gait with device (rollator) History of [...] Mobility Bed Mobility Exam: Scooting/Bridging Level of Quinter: Modified independence (anteriorly to EOB) Assistive Device: Bed rails Bed Mobility Exam: Supine to Sit Level of Quinter: Modified Quinter (to the right) Physical/Nonphysical Assist: (HOB flat) Assistive Device: Bed rails Transfers Transfer Exam: Sit to stand Level of Quinter: Stand-by assist Physical/Nonphysical Assist: Supervision, Verbal Cues, Minimal cues Assistive Device: Walker, rolling Transfer Exam: Stand to Sit Level of Quinter: Stand-by assist Physical/Nonphysical Assist: Supervision, Verbal Cues, [...] regarding toileting at this time. Standardized Assessments [facility] 6-Click Daily Activities Help from Other: Don/Doff Regular Lower Body Clothings: None Help From Other: Bathing: Little Help From Other: Toileting: None Help From Other: Don/Doff Upper Body Clothings: None Help From Other: Grooming: None Help From Other: Eating Meals: None [facility] 6 Click - Daily Activities [...] Note Bev Bobby 64 y.o. male CSN: [id number] Admission: 10/17/2024 6:21 AM Primary Problem: Critical limb ischemia of left lower extremity Forklift Wheel Loader reviewed chart and spoke with patient to complete this Initial Case Management Assessment. PCP: Asad Victor MD (Inactive) - Dr. Palomo Preferred pharmacy is [facility] Emergency Contact: Extended Emergency Contact Information Primary Emergency Contact: Patti Hill Relation: Sister City Treasurer needed? No Insurance: Primary Visit Coverage Payer Plan Sponsor Code Group Number Group Name [facility] MEDICARE [facility] MEDICARE REPLACEMENT [id number] Primary Visit Coverage Subscriber Subscriber ID Subscriber Name Subscriber [facility] Subscriber Address [id number] BEV BOBBY [id number] [place] [address] Secondary Visit Coverage Payer Plan Sponsor Code Group Number Group Name [employer] [facility] Secondary Visit Coverage Subscriber Subscriber ID Subscriber Name Subscriber [facility] Subscriber Address [id number] BEV BOBBY [id number] [place] [address] Patient information: Primary Caregiver: Self Daily Living Activities: Functional Status: Independent Living Arrangements: Alone Type of Residence: Private residence, Single Level [address] [place] [address] Current DME: Equipment Currently Used at Home: joy monterroso Income Information: Income Source: Retired Income/Expense Information: Income meets expenses Current Resources Utilized: Food [place] Housing Circumstances-Z Codes: Housing Circumstances (select all [...] Dialysis Services: None. Living Will/Advance Directive/Power of Pharmaceutical Worker /Guardian: Denied. Additional Comments: Patient is not medically ready for discharge. SW will continue to follow. Mariia Monterroso DROP MAN * Care Plan - Emilia Alonso RN [...] from the original note were not included. [facility] Department of Surgery Division of Vascular [...] Prevention: activity supervised assistive device/personal items within [facility] fall prevention program maintained lighting [...] Agree with above assessment and evaluation from resident/SPINNER CONCRETE PIPE. * Op Note - Terrell Gautam MD - 10/17/2024 8:52 AM EDT Operative Note Date: 10/17/24 Location: [facility] [place] [facility] Name: Bev Bobby, : 1960, Diagnoses: Pre-op Diagnosis Critical limb ischemia of left lower extremity Common femoral artery pseudoaneurysm Post-op Diagnosis Critical limb ischemia of left lower extremity Common femoral artery pseudoaneurysm Procedure(s): Left common/superficial/profunda femoral thromboendarterectomy with bovine patch repair Left external iliac artery/DORMITORY KEEPER stent Attending Surgeon(s): * Terrell Gautam - Primary Farm Contractor(s): * Luna Beckett MD - Resident - [...] Necessity Reasons Recent surgery contiguous with urinary tract/HOME CARE MUSIC THERAPIST/colorectal 10/17/24 190 Output (mL) 50 mL 10/18/24 08 Implants Type Name Action Serial No. VASCUGUARD 8 X 8 - [id number] Implanted STENT ENDOPROSTHESIS VIABAHN 9FR [id number] - [id number] Implanted [id number] Specimen: Specimens ID Source Frozen? 1 Other [...] and distal control. We then proceeded with iahiz-gwp-clun exposure of the popliteal artery. A medial [...] balloon dilated thestent with a 9 mm [place]. We closed the arteriotomy with a single [...] 10/17/2024 8:52 AM EDT Date: 10/17/24 Location: [facility] Name: Bev Bobby, : 1960, Diagnoses: Pre-op Diagnosis Critical limb ischemia of left lower extremity Common femoral artery pseudoaneurysm Post-op Diagnosis Critical limb ischemia of left lower extremity Common femoral artery pseudoaneurysm Procedure(s): Left common/superficial/profunda femoral thromboendarterectomy with bovine patch repair Left external iliac artery/DORMITORY KEEPER stent Attending Surgeon(s): * Terrell Gautam - Primary Farm Contractor(s): * Luna Beckett MD - Resident - Assisting * Dandy Baltazar MD - Fellow Anesthesia: General ASA: III Blood Administration: Blood Product Administration History None Estimated Blood Loss: 300 mL Drains: Urethral Catheter Temperature probe 16 Fr. (Active) Implants Type Name Action Serial No. VASCUGUARD 8 X 8 - [id number] Implanted STENT ENDOPROSTHESIS VIABAHN 9FR [id number] - [id number] Implanted [id number] Specimen: Specimens ID Source Frozen? 1 Other [...] issues. 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 He previouslyunderwent thrombin injection. He reports pain in his calves. He presents today for scheduled left lower extremity femoral to jxouh-hwn-nirh popliteal bypass. Planned likely use PTFE. He [...] 16. Results Review {Vanishing Link Review Results :[id number] I have reviewed the latest lab and imaging results. Assessment & Plan Critical limb ischemia of left lower extremity Proceed with scheduled surgery left lower extremity femoral to znqan-cbh-hotj popliteal artery bypass graft. Extensive discussion had [...] Info) Description 12/19/2024 7:30 AM EDT Appointment [facility] [address] [place] [address] 12/19/2024 8:00 AM EDT Appointment [facility] [address] [place] [address] 12/19/2024 9:00 AM EDT Office Visit [facility] [address] [place] [address] Nathaly Nowak MD [address] [facility] [address] [place] [address] Pending Results Name Type Priority Associated Diagnoses [...] lower extremity Pseudoaneurysm of left femoral artery ([facility]/HCC) Expected: 11/19/2024, Expires: 04/22/2026 documented as of [...] PREPARE RBC STAT 10/17/2024 8:06 AM EDT ID VEIN BYPASS GRAFT,FEM-POP 10/17/2024 7:38 AM EDT Critical limb ischemia of left lower extremity TYPE AND SCREEN Routine 10/17/2024 7:19 AM EDT POCT GLUCOSE METER UNSOLICITED RESULTS Routine 10/17/2024 6:44 AM EDT documented in this encounter Results * (ABNORMAL) POCT glucose meter (10/19/2024 11:40 AM EDT) POCT Glucose 207(H) 74 - 99 mg/dL 10/19/2024 11:42 AM EDT [facility] Comment:Accuracy of a glucos e result [...] Comment 10/19/2024 11:42 AM EDT HEALTHCARE LAB Program Medical Director ID Job Andrew 10/20/19 11:42 AM EDT HEALTHCARE LAB Device ID [id number] 10/19/2024 11:42 AM EDT HEALTHCARE LAB Specimen Type POC Capillary 10/19/2024 11:42 AM EDT [facility] Blood Capillary blood specimen / Unknown 10/19/2024 11:40 AM EDT 10/19/2024 11:42 AM EDT us Terrell Gautam MD LAB POINT OF CARE TE ST DOCKED DEVICE UNSOLICITED RESULTS Final Result Performing Organization Address City/[facility]/ZIP Co de Phone Number [facility] [address] [place] [address] * (ABNORMAL) Protime-INR (10/19/2024 8:25 AM EDT) Prothrombin Time 17.5(H) 12.0 - 14.3 sec LAB COAGULATION METHOD 10/19/2024 9:25 AM EDT [facility] INR 1.4(H) 0.9 - 1.1 LAB COAGULATION METHOD 10/19/2024 9:25 AM EDT [facility] Blood Venous blood specimen / Unknown Venipuncture / Unknown 10/19/2024 8:25 AM EDT 10/19/2024 8:43 AM EDT Narrative [facility] - 10/19/2024 9:25 AM EDT [...] CA INR 2.5 to 3.5 us Nirmal Ceuto MD LAB BLOOD ORDERABLES Final Result Performing Organization Address City/[facility]/ZIP Co de Phone Number [facility] [address] [place] [address] * (ABNORMAL) Phosphorus (10/19/2024 8:25 AM EDT) Phosphorus, Plasma 2.2(L) 2.5 - 4.5 mg/dL 10/19/2024 9:12 AM EDT [facility] Blood Venous blood specimen / Unknown Venipuncture / Unknown 10/19/2024 8:25 AM EDT 10/19/2024 8:43 AM EDT Nirmal Cueto MD LAB BLOOD ORDERABLES Final Result [facility] [address] [place] [address] * Magnesium (10/19/2024 8:25 AM EDT) Magnesium, Plasma 2.1 1.9 - 2.4 mg/dL 10/19/2024 9:12 AM EDT [facility] Blood Venous blood specimen / Unknown Venipuncture / Unknown 10/19/2024 8:25 AM EDT 10/19/2024 8:43 AM EDT Nirmal Cueto MD LAB BLOOD ORDERABLES Final Result [facility] [address] [place] [address] * (ABNORMAL) Basic metabolic panel (10/19/2024 8:25 AM EDT) Glucose, Plasma 191(H) 74 - 99 mg/dL 10/19/2024 9:12 AM EDT [facility] BUN, Plasma 18 8 - 23 mg/dL 10/19/2024 9:12 AM EDT [facility] Creatinine, Plasma 0.76 0.70 - 1.20 mg/dL 10/19/2024 9:12 AM EDT [facility] BUN/Creatinine Ratio 24 10/19/2024 9:12 AM EDT [facility] Sodium, Plasma 135(L) 136 - 145 mmol/L 10/19/2024 9:12 AM EDT [facility] Potassium, Plasma 4.1 3.6 - 4.9 mmol/L 10/19/2024 9:12 AM EDT [facility] Chloride, Plasma 104 97 - 107 mmol/L 10/19/2024 9:12 AM EDT [facility] CO2, Plasma 22 22 - 29 mmol/L 10/19/2024 9:12 AM EDT [facility] Anion Gap 9 6 - 16 mmol/L 10/19/2024 9:12 AM EDT [facility] Total Calcium, Plasma 8.4(L) 8.9 - 10.2 mg/dL 10/19/2024 9:12 AM EDT [facility] eGFRcr 99.7 mL/min/1.7 3m*2 10/19/2024 9:12 AM EDT [facility] Comment:Reported eGFRcr in m L/min/1.73m2 is based the CKD-EPI 2020 equation that does not use a race coefficient. Blood Venous blood specimen / Unknown Venipuncture / Unknown 10/19/2024 8:25 AM EDT 10/19/2024 8:43 AM EDT us Nirmal Cueto MD LAB BLOOD ORDERABLES Final Result [facility] [address] [place] [address] * (ABNORMAL) CBC W/O Differential (10/19/2024 8:25 AM EDT) WBC Count 14.10(H) 3.70 - 10.30 10*3/uL LAB HEMATOLOGY METHOD 10/19/2024 8:52 AM EDT [facility] RBC Count 2.61(L) 4.60 - 6.10 10*6/uL LAB HEMATOLOGY METHOD 10/19/2024 8:52 AM EDT [facility] HGB 8.0(L) 13.7 - 17.5 g/dL LAB HEMATOLOGY METHOD 10/19/2024 8:52 AM EDT [facility] HCT 24.3(L) 40.0 - 51.0 % LAB HEMATOLOGY METHOD 10/19/2024 8:52 AM EDT [facility] Platelet Count 318 155 - 369 10*3/uL LAB HEMATOLOGY METHOD 10/19/2024 8:52 AM EDT [facility] MCV 93 79 - 98 fL LAB HEMATOLOGY METHOD 10/19/2024 8:52 AM EDT [facility] MCH 30.7 26.0 - 32.0 pg LAB HEMATOLOGY METHOD 10/19/2024 8:52 AM EDT [facility] MCHC 32.9 30.7 - 35.5 g/dL LAB HEMATOLOGY METHOD 10/19/2024 8:52 AM EDT [facility] RDW 13.4 11.5 - 14.5 % LAB HEMATOLOGY METHOD 10/19/2024 8:52 AM EDT [facility] MPV 9.6 8.8 - 12.5 fL LAB HEMATOLOGY METHOD 10/19/2024 8:52 AM EDT [facility] nRBC 0.0 <=0.0 per 100 WBCs LAB HEMATOLOGY METHOD 10/19/2024 8:52 AM EDT [facility] Blood Venous blood specimen / Unknown Venipuncture / Unknown 10/19/2024 8:25 AM EDT 10/19/2024 8:44 AM EDT Nirmal Cueto MD LAB BLOOD ORDERABLES Final Result [facility] [address] [place] [address] * (ABNORMAL) POCT glucose meter (10/19/2024 7:35 [...] Comment 10/19/2024 7:37 AM EDT [facility]ALTHCARE LAB Program Medical Director ID KamranJob 10/20/19 7:37 AM EDT [facility] Device ID [id number] 10/19/2024 7:37 AM EDT [facility] Specimen Type POC Capillary 10/19/2024 7:37 AM EDT [facility] Blood Capillary blood specimen / Unknown 10/19/2024 7:35 AM EDT 10/19/2024 7:37 AM EDT Terrell Gautam MD LAB POINT OF CARE TE ST DOCKED DEVICE UNSOLICITED RESULTS Final Result Performing Organization Address City/[facility] Co de Phone Number [facility] [address] [place] [address] * (ABNORMAL) POCT glucose meter (10/18/2024 7:22 [...] 10/18/2024 7:24 PM EDT [facility] Program Medical Director ID Mahesh Aldana 10/18/2024 7:24 PM EDT HEALTHCARE LAB Device ID [id number] 10/18/2024 7:24 PM EDT [facility]ARE LAB Specimen Type POC Capillary 10/18/2024 7:24 PM EDT [facility] Blood Capillary blood specimen / Unknown 10/18/2024 7:22 PM EDT 10/18/2024 7:24 PM EDT us Terrell Gautam MD LAB POINT OF CARE TE ST DOCKED DEVICE UNSOLICITED RESULTS Final Result Performing Organization Address City/[facility] Co de Phone Number [facility] [address] [place] [address] * (ABNORMAL) POCT glucose meter (10/18/2024 6:07 [...] 10/18/2024 6:09 PM EDT [facility] Program Medical Director ID David Parks 10/18/2024 6:09 PM EDT [facility] Device ID [id number] 10/18/2024 6:09 PM EDT [facility] Specimen Type POC Capillary 10/18/2024 6:09 PM EDT [facility] Blood Capillary blood specimen / Unknown 10/18/2024 6:07 PM EDT 10/18/2024 6:09 PM EDT Terrell Gautam MD LAB POINT OF CARE TE ST DOCKED DEVICE UNSOLICITED RESULTS Final Result Performing Organization Address City/State/[facility] Co de Phone Number [facility] [address] [place] [address] * (ABNORMAL) POCT glucose meter (10/18/2024 11:56 AM EDT) [facility] POCT Glucose 233(H) 74 - 99 [...] 10/21/2024 7:42 AM EDT [facility] Program Medical Director ID Venessa Marcano 10/21/2024 7:42 AM EDT [facility] Device ID [id number] 10/21/2024 7:42 AM EDT HEALTH[facility]ARE LAB Specimen Type POC Capillary 10/21/2024 7:42 AM EDT [facility] Blood Capillary blood specimen / Unknown 10/18/2024 11:56 AM EDT 10/21/2024 7:42 AM EDT Terrell Gautam MD LAB POINT OF CARE TE ST DOCKED DEVICE UNSOLICITED RESULTS Final Result Performing Organization Address City/[facility] de Phone Number [facility] [address] [place] [address] * (ABNORMAL) POCT glucose meter (10/18/2024 9:24 [...] for testing. Comment 10/21/2024 7:42 AM EDT [facility] Program Medical Director ID Emilia Alonso 7:42 AM EDT HEALTHCARE LAB Device ID [id number] 10/21/2024 7:42 AM EDT [facility] Specimen Type POC Venous 10/21/2024 7:42 AM EDT [facility] Blood Venous blood specimen / Unknown 10/18/2024 9:24 AM EDT 10/21/2024 7:42 AM EDT us Terrell Gautam MD LAB POINT OF CARE TE ST DOCKED DEVICE UNSOLICITED RESULTS Final Result Performing Organization Address City/[facility] Co de Phone Number [facility] [address] [place] [address] * (ABNORMAL) POCT glucose meter (10/18/2024 7:36 [...] Comment 10/18/2024 7:38 AM EDT HEALTHCARE LAB Program Medical Director ID Kizzy Godfrey 025 7:38 AM EDT HEALTHCARE LAB Device ID [id number] 10/18/2024 7:38 AM EDT [facility]ARE LAB Specimen Type POC Capillary 10/18/2024 7:38 AM EDT [facility] Blood Capillary blood specimen / Unknown 10/18/2024 7:36 AM EDT 10/18/2024 7:38 AM EDT us Terrell Gautam MD LAB POINT OF CARE TE ST DOCKED DEVICE UNSOLICITED RESULTS Final Result Performing Organization Address City/State/[facility] Co de Phone Number [facility] [address] [place] [phone] * (ABNORMAL) CBC (10/18/2024 2:09 AM EDT) WBC Count 16.71(H) 3.70 - 10.30 10*3/uL LAB HEMATOLOGY METHOD 10/18/2024 2:33 AM EDT [facility] RBC Count 2.78(L) 4.60 - 6.10 10*6/uL LAB HEMATOLOGY METHOD 10/18/2024 2:33 AM EDT [facility] HGB 8.5(L) 13.7 - 17.5 g/dL LAB HEMATOLOGY METHOD 10/18/2024 2:33 AM EDT [facility] HCT 25.7(L) 40.0 - 51.0 % LAB HEMATOLOGY METHOD 10/18/2024 2:33 AM EDT [facility] Platelet Count 324 155 - 369 10*3/uL LAB HEMATOLOGY METHOD 10/18/2024 2:33 AM EDT [facility] MCV 92 79 - 98 fL LAB HEMATOLOGY METHOD 10/18/2024 2:33 AM EDT [facility] MCH 30.6 26.0 - 32.0 pg LAB HEMATOLOGY METHOD 10/18/2024 2:33 AM EDT [facility] MCHC 33.1 30.7 - 35.5 g/dL LAB HEMATOLOGY METHOD 10/18/2024 2:33 AM EDT [facility] RDW 13.3 11.5 - 14.5 % LAB HEMATOLOGY METHOD 10/18/2024 2:33 AM EDT [facility] MPV 9.4 8.8 - 12.5 fL LAB HEMATOLOGY METHOD 10/18/2024 2:33 AM EDT [facility] nRBC 0.0 <=0.0 per 100 WBCs LAB HEMATOLOGY METHOD 10/18/2024 2:33 AM EDT [facility] Blood Venous blood specimen / Unknown Venipuncture / Unknown 10/18/2024 2:09 AM EDT 10/18/2024 2:25 AM EDT us Nirmal Cueto MD LAB BLOOD ORDERABLES Final Result [facility] [address] [place] [address] * (ABNORMAL) Basic metabolic panel (10/18/2024 2:09 AM EDT) Glucose, Plasma 206(H) 74 - 99 mg/dL 10/18/2024 2:53 AM EDT [facility] BUN, Plasma 24(H) 8 - 23 mg/dL 10/18/2024 2:53 AM EDT [facility] Creatinine, Plasma 1.17 0.70 - 1.20 mg/dL 10/18/2024 2:53 AM EDT [facility] LAB BUN/Creatinine Ratio 21 10/18/2024 2:53 AM EDT [facility] Sodium, Plasma 136 136 - 145 mmol/L 10/18/2024 2:53 AM EDT [facility] Potassium, Plasma 4.8 3.6 - 4.9 mmol/L 10/18/2024 2:53 AM EDT [facility] Chloride, Plasma 104 97 - 107 mmol/L 10/18/2024 2:53 AM EDT [facility] CO2, Plasma 22 22 - 29 mmol/L 10/18/2024 2:53 AM EDT [facility] Anion Gap 10 6 - 16 mmol/L 10/18/2024 2:53 AM EDT [facility] Total Calcium, Plasma 8.5(L) 8.9 - 10.2 mg/dL 10/18/2024 2:53 AM EDT [facility] eGFRcr 69.2 mL/min/1.7 3m*2 10/18/2024 2:53 AM EDT [facility] Comment:Reported eGFRcr in m L/min/1.73m2 is based the CKD-EPI 2020 equation that does not use a race coefficient. Blood Venous blood specimen / Unknown Venipuncture / Unknown 10/18/2024 2:09 AM EDT 10/18/2024 2:25 AM EDT Nirmal Cueto MD LAB BLOOD ORDERABLES Final Result [facility] [address] [place] [address] * (ABNORMAL) Magnesium (10/18/2024 2:09 AM EDT) Magnesium, Plasma 1.8(L) 1.9 - 2.4 mg/dL 10/18/2024 2:53 AM EDT [facility] Blood Venous blood specimen / Unknown Venipuncture / Unknown 10/18/2024 2:09 AM EDT 10/18/2024 2:25 AM EDT Nirmal Cueto MD LAB BLOOD ORDERABLES Final Result Performing Organization Address City/[facility]/ZIP Co de Phone Number [facility] [address] [place] [address] * Phosphorus (10/18/2024 2:09 AM EDT) Phosphorus, Plasma 3.7 2.5 - 4.5 mg/dL 10/18/2024 2:53 AM EDT [facility] Blood Venous blood specimen / Unknown Venipuncture / Unknown 10/18/2024 2:09 AM EDT 10/18/2024 2:25 AM EDT us Nirmal Cueto MD LAB BLOOD ORDERABLES Final Result Performing Organization Address City/[facility]/ZIP Co de Phone Number [facility] [address] [place] [address] * (ABNORMAL) Protime-INR (10/18/2024 2:09 AM EDT) Prothrombin Time 14.5(H) 12.0 - 14.3 sec LAB COAGULATION METHOD 10/18/2024 2:53 AM EDT [facility] INR 1.1 0.9 - 1.1 LAB COAGULATION METHOD 10/18/2024 2:53 AM EDT [facility] Blood Venous blood specimen / Unknown Venipuncture / Unknown 10/18/2024 2:09 AM EDT 10/18/2024 2:25 AM EDT Narrative [facility] - 10/18/2024 2:53 AM EDT [...] Cueto MD LAB BLOOD ORDERABLES Final Result [facility] [address] [place] [address] * (ABNORMAL) POCT glucose meter (10/18/2024 2:08 AM EDT) POCT Glucose 202(H) 74 - 99 mg/dL 10/18/2024 2:10 AM EDT [facility] Comment:Accuracy of a glucos e result [...] for testing. Comment 10/18/2024 2:10 AM EDT [facility] Program Medical Director ID Jourdan Grimes II 10/18/2024 2:10 AM EDT [facility] Device ID [id number] 10/18/2024 2:10 AM EDT [facility] Specimen Type POC Capillary 10/18/2024 2:10 AM EDT [facility] Blood Capillary blood specimen / Unknown 10/18/2024 2:08 AM EDT 10/18/2024 2:10 AM EDT Terrell Gautam MD LAB POINT OF CARE TE ST DOCKED DEVICE UNSOLICITED RESULTS Final Result Performing Organization Address City/[facility]/ZIP Co de Phone Number [facility] [address] [place] [address] * (ABNORMAL) POCT glucose meter (10/17/2024 10:07 [...] Comment 10/17/2024 10:10 PM EDT [facility] Program Medical Director ID Jourdan Grimes II 10/17/2024 10:10 PM EDT [facility] Device ID [id number] 10/17/2024 10:10 PM EDT [facility] Specimen Type POC Capillary 10/17/2024 10:10 PM EDT [facility] Blood Capillary blood specimen / Unknown 10/17/2024 10:07 PM EDT 10/17/2024 10:10 PM EDT us Terrell Gautam MD LAB POINT OF CARE TE ST DOCKED DEVICE UNSOLICITED RESULTS Final Result [facility] [address] [place] [address] * (ABNORMAL) POCT glucose meter (10/17/2024 8:07 [...] Comment 10/17/2024 8:10 PM EDT [facility] Program Medical Director ID Jourdan Grimes II 10/17/2024 8:10 PM EDT [facility] LAB Device ID [id number] 10/17/2024 8:10 PM EDT [facility] Specimen Type POC Capillary 10/17/2024 8:10 PM EDT [facility] Blood Capillary blood specimen / Unknown 10/17/2024 8:07 PM EDT 10/17/2024 8:10 PM EDT us Terrell Gautam MD LAB POINT OF CARE TE ST DOCKED DEVICE UNSOLICITED RESULTS Final Result Performing Organization Address City/State/[facility] Co de Phone Number [facility] [address] [place] [address] * (ABNORMAL) POCT glucose meter (10/17/2024 4:01 [...] Comment 10/17/2024 4:03 PM EDT [facility] Program Medical Director ID Keisha Waller 10/17/2024 4:03 PM EDT [facility] Device ID [id number] 10/17/2024 4:03 PM EDT [facility] Specimen Type POC Capillary 10/17/2024 4:03 PM EDT [facility] Blood Capillary blood specimen / Unknown 10/17/2024 4:01 PM EDT 10/17/2024 4:03 PM EDT us Terrell Gautam MD LAB POINT OF CARE TE ST DOCKED DEVICE UNSOLICITED RESULTS Final Result Performing Organization Address [facility] Co de Phone Number [facility] [address] [place] [address] * (ABNORMAL) POCT glucose meter (10/17/2024 1:25 [...] Comment 10/17/2024 1:27 PM EDT [facility] Program Medical Director ID Kizzy Godfrey 025 1:27 PM EDT [facility] LAB Device ID [id number] 10/17/2024 1:27 PM EDT [facility] Specimen Type POC Capillary 10/17/2024 1:27 PM EDT [facility] Blood Capillary blood specimen / Unknown 10/17/2024 1:25 PM EDT 10/17/2024 1:27 PM EDT Terrell Gautam MD LAB POINT OF CARE TE ST DOCKED DEVICE UNSOLICITED RESULTS Final Result Performing Organization Address [facility] Co de Phone Number [facility] [address] [place] [address] * [place] Less than 1 Hour Intraoperative (10/17/2024 1:18 PM EDT) Narrative IMAGING - 10/17/2024 2:05 PM EDT Images were obtained for surgical purposes. See Terrell Gautam's surgical note in the patient's chart for the findings. us Terrell Gautam MD IMG FLUOROSCOPY PROCEDURES Fi nal Result Performing Organization Address [facility]/ZIP Co de Phone Number IMAGING * POCT ACT (10/17/2024 12:23 PM EDT) [facility] ACT+ (HIGH RANGE) 211 68 - 600 Seconds 10/29/2024 7:28 AM EDT [facility]ARE LAB Program Medical Director ID Donna Mcmillan 10/29/2024 7:28 AM EDT [facility] ACT Device ID [id number] 10/29/2024 7:28 AM EDT [facility] Comment 10/29/2024 7:28 AM EDT [facility] Comment: ACT performed by staff [...] UNSOLICITED RESULTS Final Result Performing Organization Address City/State/[facility] Co de Phone Number [facility] [address] [place] [address] * (ABNORMAL) Blood gas, arterial (10/17/2024 11:48 AM EDT) pH, Arterial 7.34 7.31 - 7.42 LAB HEMATOLOGY METHOD 10/17/2024 11:54 AM EDT [facility] pCO2, Arterial 41 32 - 45 mmHg LAB HEMATOLOGY METHOD 10/17/2024 11:54 AM EDT [facility] pO2, Arterial 202 >80 mmHg LAB HEMATOLOGY METHOD 10/17/2024 11:54 AM EDT [facility] SO2, Measured, Arterial 100(H) 94 - 98 % LAB HEMATOLOGY METHOD 10/17/2024 11:54 AM EDT [facility] Base Excess, Arterial -3.2(L) -2.0 - 3.0 mmol/L LAB HEMATOLOGY METHOD 10/17/2024 11:54 AM EDT [facility] Bicarbonate, Calculated, Arterial 22 22 - 26 mmol/L LAB HEMATOLOGY METHOD 10/17/2024 11:54 AM EDT [facility] Hematocrit, Whole Blood 28.6(L) 40.0 - 51.0 % LAB HEMATOLOGY METHOD 10/17/2024 11:54 AM EDT [facility] Sodium, Whole Blood 137 136 - 145 mmol/L LAB HEMATOLOGY METHOD 10/17/2024 11:54 AM EDT [facility] Potassium, Whole Blood 4.5 3.6 - 4.9 mmol/L LAB HEMATOLOGY METHOD 10/17/2024 11:54 AM EDT [facility] Chloride, Whole Blood 112(H) 97 - 107 mmol/L LAB HEMATOLOGY METHOD 10/17/2024 11:54 AM EDT [facility] Glucose, Whole Blood 201(H) 74 - 99 mg/dL LAB HEMATOLOGY METHOD 10/17/2024 11:54 AM EDT [facility] Ionized Calcium, Whole Blood 4.8 4.6 - 5.1 mg/dL LAB HEMATOLOGY METHOD 10/17/2024 11:54 AM EDT [facility] Lactate, Arterial, Whole Blood 2.3(H) 0.5 - 1.6 mmol/L LAB HEMATOLOGY METHOD 10/17/2024 11:54 AM EDT [facility] Blood Arterial blood specimen / Unknown Arterial Puncture / Unknown 10/17/2024 11:48 AM EDT 10/17/2024 11:53 AM EDT us Jenna Lopez [facility] LAB BLOOD ORDERABLES Final Re sult [facility] [address] [place] [address] * POCT ACT (10/17/2024 11:41 AM EDT) ACT+ (HIGH RANGE) 175 68 - 600 Seconds 10/29/2024 7:28 AM EDT [facility]ARE LAB Program Medical Director ID Oneyda Alicea 10/29/2024 7:28 AM EDT [facility] ACT Device ID [id number] 10/29/2024 7:28 AM EDT [facility] Comment 10/29/2024 7:28 AM EDT [facility] Comment: ACT performed by staff [...] Final Result Performing Organization Address [facility] Co de Phone Number [facility] [address] LAB [address] [place] [address] * POCT ACT (10/17/2024 11:11 AM EDT) ACT+ (HIGH RANGE) 252 68 - 600 Seconds 10/29/2024 7:28 AM EDT [facility] Program Medical Director ID Donna Mcmillan 10/29/2024 7:28 AM EDT [facility] ACT Device ID [id number] 10/29/2024 7:28 AM EDT [facility] LAB Comment 10/29/2024 7:28 AM EDT [facility] Comment: ACT performed by staff [...] UNSOLICITED RESULTS Final Result Performing Organization Address City/[facility]/ZIP Co de Phone Number [facility]ARE [facility] [address] LAB [address] [place] [address] * (ABNORMAL) Blood gas, arterial (10/17/2024 10:46 AM EDT) pH, Arterial 7.35 7.31 - 7.42 LAB HEMATOLOGY METHOD 10/17/2024 10:56 AM EDT [facility] pCO2, Arterial 42 32 - 45 mmHg LAB HEMATOLOGY METHOD 10/17/2024 10:56 AM EDT [facility] pO2, Arterial 161 >80 mmHg LAB HEMATOLOGY METHOD 10/17/2024 10:56 AM EDT [facility] SO2, Measured, Arterial 100(H) 94 - 98 % LAB HEMATOLOGY METHOD 10/17/2024 10:56 AM EDT [facility] Base Excess, Arterial -2.2(L) -2.0 - 3.0 mmol/L LAB HEMATOLOGY METHOD 10/17/2024 10:56 AM EDT [facility] Bicarbonate, Calculated, Arterial 23 22 - 26 mmol/L LAB HEMATOLOGY METHOD 10/17/2024 10:56 AM EDT [facility] Hematocrit, Whole Blood 29.9(L) 40.0 - 51.0 % LAB HEMATOLOGY METHOD 10/17/2024 10:56 AM EDT [facility] Sodium, Whole Blood 138 136 - 145 mmol/L LAB HEMATOLOGY METHOD 10/17/2024 10:56 AM EDT [facility] Potassium, Whole Blood 4.0 3.6 - 4.9 mmol/L LAB HEMATOLOGY METHOD 10/17/2024 10:56 AM EDT [facility] Chloride, Whole Blood 110(H) 97 - 107 mmol/L LAB HEMATOLOGY METHOD 10/17/2024 10:56 AM EDT [facility] Glucose, Whole Blood 174(H) 74 - 99 mg/dL LAB HEMATOLOGY METHOD 10/17/2024 10:56 AM EDT [facility] Ionized Calcium, Whole Blood 5.1 4.6 - 5.1 mg/dL LAB HEMATOLOGY METHOD 10/17/2024 10:56 AM EDT [facility] Lactate, Arterial, Whole Blood 1.4 0.5 - 1.6 mmol/L LAB HEMATOLOGY METHOD 10/17/2024 10:56 AM EDT [facility] Blood Arterial blood specimen / Unknown Arterial Puncture / Unknown 10/17/2024 10:46 AM EDT 10/17/2024 10:54 AM EDT us Jenna Lopez CRNA LAB BLOOD ORDERABLES Final Re sult [facility] [address] [place] [address] * POCT ACT (10/17/2024 10:37 AM EDT) ACT+ (HIGH RANGE) 206 68 - 600 Seconds 10/29/2024 7:28 AM EDT [facility]ARE LAB Program Medical Director ID Donna Mcmillan 10/29/2024 7:28 AM EDT [facility] ACT Device ID [id number] 10/29/2024 7:28 AM EDT [facility] Comment 10/29/2024 7:28 AM EDT [facility] Comment: ACT performed by staff [...] RESULTS Final Result [facility] [address] LAB [address] [place] [address] * Surgical Pathology Exam (10/17/2024 10:27 AM EDT) Case Report Surgical Pathology Case: [id number] Authorizing Provider: Terrell Gautam MD Collected: 10/17/2024 1027 Ordering Location: [facility] Received: 10/17/2024 1325 Pathologist: Haydee Osborne MD Specimen: Other (specify site), left common femoral plaque 10/21/2024 10:16 AM EDT [facility] Final Diagnosis A. LEFT COMMON FEMORAL PLAQUE, EXCISION: - CALCIFIED PLAQUE 10/21/2024 10:16 AM EDT [facility] at 1016 EDT Clinical Information Critical limb ischemia of left lower extremity [I70.222] 10/21/2024 10:16 AM EDT [facility] Gross Description A. LEFT COMMON FEMORAL PLAQUE Received in formalin labeled l eft common femoral plaque , is one aggregate of red-gabriel hard portions of plaque measuring 3.7 x 2.5 x 0.9 cm. The specimen is serially sectioned and hospital insurance representative sections are submitted in cassette A1. Cold Time: <1m Kenia Pastor Yola 10/21/2024 10:16 AM EDT [facility] Note: A resident was involved in the service. I attest I examined the relevant preparations for the specimens and confirmed the diagnosis or interpretation. 10/21/2024 10:16 AM EDT [facility] Tissue Topography unknown / Unknown 10/17/2024 10:27 AM EDT 10/17/2024 1:25 PM EDT Comment:Pre-op diagnosis: Critical limb ischemia of left lower extremity [I70.222] us Terrell Gautam MD LAB PATHOLOGY ORDERABLES Gwen l Result Performing Organization Address [facility] Co de Phone Number [facility] [address] [place] [address] * POCT ACT (10/17/2024 10:03 AM EDT) ACT+ (HIGH RANGE) 244 68 - 600 Seconds 10/29/2024 7:28 AM EDT [facility]ARE [facility] Program Medical Director ID Donna Mcmillan 10/29/2024 7:28 AM EDT [facility] ACT Device ID [id number] 10/29/2024 7:28 AM EDT [facility] Comment 10/29/2024 7:28 AM EDT [facility] Comment: ACT performed by staff [...] Final Result Performing Organization Address [facility] Co de Phone Number [facility] [address] LAB [address] [place] [address] * (ABNORMAL) Blood gas, arterial (10/17/2024 9:45 AM EDT) pH, Arterial 7.37 7.31 - 7.42 LAB HEMATOLOGY METHOD 10/17/2024 9:55 AM EDT [facility] pCO2, Arterial 43 32 - 45 mmHg LAB HEMATOLOGY METHOD 10/17/2024 9:55 AM EDT [facility] pO2, Arterial 177 >80 mmHg LAB HEMATOLOGY METHOD 10/17/2024 9:55 AM EDT [facility] SO2, Measured, Arterial 100(H) 94 - 98 % LAB HEMATOLOGY METHOD 10/17/2024 9:55 AM EDT [facility] Base Excess, Arterial -0.5 -2.0 - 3.0 mmol/L LAB HEMATOLOGY METHOD 10/17/2024 9:55 AM EDT [facility] Bicarbonate, Calculated, Arterial 25 22 - 26 mmol/L LAB HEMATOLOGY METHOD 10/17/2024 9:55 AM EDT [facility] Hematocrit, Whole Blood 30.0(L) 40.0 - 51.0 % LAB HEMATOLOGY METHOD 10/17/2024 9:55 AM EDT [facility] Sodium, Whole Blood 137 136 - 145 mmol/L LAB HEMATOLOGY METHOD 10/17/2024 9:55 AM EDT [facility] Potassium, Whole Blood 4.3 3.6 - 4.9 mmol/L LAB HEMATOLOGY METHOD 10/17/2024 9:55 AM EDT [facility] Chloride, Whole Blood 108(H) 97 - 107 mmol/L LAB HEMATOLOGY METHOD 10/17/2024 9:55 AM EDT [facility] Glucose, Whole Blood 191(H) 74 - 99 mg/dL LAB HEMATOLOGY METHOD 10/17/2024 9:55 AM EDT [facility] Ionized Calcium, Whole Blood 5.0 4.6 - 5.1 mg/dL LAB HEMATOLOGY METHOD 10/17/2024 9:55 AM EDT [facility] Lactate, Arterial, Whole Blood 1.3 0.5 - 1.6 mmol/L LAB HEMATOLOGY METHOD 10/17/2024 9:55 AM EDT [facility] Blood Arterial blood specimen / Unknown Arterial Line / Unknown 10/17/2024 9:45 AM EDT 10/17/2024 9:52 AM EDT us Jenna Lopez CRNA LAB BLOOD ORDERABLES Final Re sult [facility] [address] [place] [address] * (ABNORMAL) Blood gas, arterial (10/17/2024 8:47 AM EDT) pH, Arterial 7.37 7.31 - 7.42 LAB HEMATOLOGY METHOD 10/17/2024 8:59 AM EDT [facility] pCO2, Arterial 43 32 - 45 mmHg LAB HEMATOLOGY METHOD 10/17/2024 8:59 AM EDT [facility] pO2, Arterial 205 >80 mmHg LAB HEMATOLOGY METHOD 10/17/2024 8:59 AM EDT [facility] SO2, Measured, Arterial 100(H) 94 - 98 % LAB HEMATOLOGY METHOD 10/17/2024 8:59 AM EDT [facility] Base Excess, Arterial -0.3 -2.0 - 3.0 mmol/L LAB HEMATOLOGY METHOD 10/17/2024 8:59 AM EDT [facility] Bicarbonate, Calculated, Arterial 25 22 - 26 mmol/L LAB HEMATOLOGY METHOD 10/17/2024 8:59 AM EDT [facility] Hematocrit, Whole Blood 31.3(L) 40.0 - 51.0 % LAB HEMATOLOGY METHOD 10/17/2024 8:59 AM EDT [facility] Sodium, Whole Blood 138 136 - 145 mmol/L LAB HEMATOLOGY METHOD 10/17/2024 8:59 AM EDT [facility] Potassium, Whole Blood 4.0 3.6 - 4.9 mmol/L LAB HEMATOLOGY METHOD 10/17/2024 8:59 AM EDT [facility] Chloride, Whole Blood 108(H) 97 - 107 mmol/L LAB HEMATOLOGY METHOD 10/17/2024 8:59 AM EDT [facility] Glucose, Whole Blood 162(H) 74 - 99 mg/dL LAB HEMATOLOGY METHOD 10/17/2024 8:59 AM EDT [facility] Ionized Calcium, Whole Blood 5.2(H) 4.6 - 5.1 mg/dL LAB HEMATOLOGY METHOD 10/17/2024 8:59 AM EDT [facility] Lactate, Arterial, Whole Blood 1.7(H) 0.5 - 1.6 mmol/L LAB HEMATOLOGY METHOD 10/17/2024 8:59 AM EDT [facility] Blood Arterial blood specimen / Unknown Arterial Puncture / Unknown 10/17/2024 8:47 AM EDT 10/17/2024 8:58 AM EDT us Jenna Lopez CRNA LAB BLOOD ORDERABLES Final Re sult [facility] [address] [place] [address] * POCT ACT (10/17/2024 8:46 AM EDT) ACT+ (HIGH RANGE) 101 68 - 600 Seconds 10/29/2024 7:28 AM EDT [facility] Program Medical Director ID Donna Mcmillan 10/29/2024 7:28 AM EDT [facility] ACT Device ID [id number] 10/29/2024 7:28 AM EDT [facility] Comment 10/29/2024 7:28 AM EDT [facility] Comment: ACT performed by staff [...] Final Result [facility] [address] LAB [address] [place] [address] * Type and Screen (10/17/2024 7:19 AM [...] ORDERAB LES Final Result Performing Organization Address City/[facility]/ZIP Co de Phone Number BLOOD BANK [address] [place] [address], * (ABNORMAL) POCT glucose meter (10/17/2024 6:44 AM EDT) [facility] POCT Glucose 178(H) [...] 10/17/2024 6:49 AM EDT [facility] Program Medical Director ID Hunter Burroughs 10/18/19 6:49 AM EDT [facility] Device ID [id number] 10/17/2024 6:49 AM EDT [facility] Specimen Type POC Capillary 10/17/2024 6:49 AM EDT [facility]ALTH[facility] LAB Blood Capillary blood specimen / Unknown 10/17/2024 6:44 AM EDT 10/17/2024 6:49 AM EDT us Terrell Gautam MD LAB POINT OF CARE TE ST DOCKED DEVICE UNSOLICITED RESULTS Final Result [facility] [address] [place] [address] documented in this encounter Visit Diagnoses Diagnosis [...] 2 g, Intravenous, Once, 1 dose, On Yadiar 10/17/24 at 0745, Routine, Anesthesia Intraprocedure 0842 [...] 2012 (Given - Provider: Jourdan Grimes II, HCRISTIAN) 800 (Given - Provider: Emilia Alonso, CHRISTIAN)2001 [...] documented as of this encounter Care Teams Sales Force Administrator Relationship Specialty Start Date End Date Asad Victor MD [address] [place] [id number] PCP - General 10/07/22 documented as of this encounter
--- OUTSIDE RECORDS SUMMARY | 2024-11-05 21:45 | XMS_ITS | Encounter Summary ---
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 11/13/2024 7:[address] [facility] BUN, Plasma 10 8 - 23 mg/dL 11/13/2024 7:[address] [facility] Creatinine, Plasma 0.68(L) 0.70 - 1.20 mg/dL 11/13/2024 7:[address] [facility] BUN/Creatinine Ratio 15 11/13/2024 7:[address] [facility] Sodium, Plasma 135(L) 136 - 145 mmol/L 11/13/2024 7:[address] [facility] Potassium, Plasma 3.9 3.6 - 4.9 mmol/L 11/13/2024 7:[address] [facility] Chloride, Plasma 107 97 - 107 mmol/L 11/13/2024 7:[address] [facility] CO2, Plasma 21(L) 22 - 29 mmol/L 11/13/2024 7:[address] [facility] Anion Gap 7 6 - 16 mmol/L 11/13/2024 7:[address] [facility] Total Calcium, Plasma 8.1(L) 8.9 - 10.2 mg/dL 11/13/2024 7:[address] [facility] eGFRcr 103.2 mL/min/1.7 3m*2 11/13/2024 7:[address] [facility] Comment:Reported eGFRcr in m L/min/1.73m2 is based the CKD-EPI 2020 equation that does not use a race coefficient. Blood Venous blood specimen / Unknown Venipuncture / Unknown 11/13/2024 6:37 AM EDT 11/13/2024 6:44 AM EDT Nathaly Nowak MD LAB BLOOD ORDERABLES Final Resu lt Performing Organization Address City/[facility]/ZIP Co de Phone Number [facility] [address] [place] [address] * (ABNORMAL) POCT glucose meter (11/12/2024 8:27 [...] Comment 11/12/2024 8:29 PM EDT [facility] [employer]person ID Nelda Gerber 11/13/19 8:29 PM EDT [facility] Device ID [id number] 11/12/2024 8:29 PM EDT [facility] Specimen Type POC Capillary 11/12/2024 8:29 PM EDT [facility] Blood Capillary blood specimen / Unknown 11/12/2024 8:27 PM EDT 11/12/2024 8:29 PM EDT Nathaly Nowak MD LAB POINT OF CARE TE ST DOCKED DEVICE UNSOLICITED RESULTS Final Result Performing Organization Address City/[facility]/ZIP Co de Phone Number [facility] [address] [place] [address] * (ABNORMAL) POCT glucose meter (11/12/2024 5:08 PM EDT) Pathologist [facility] POCT Glucose 157(H) 74 - 99 [...] Comment 11/12/2024 5:10 PM EDT [facility] [employer]person ID Wade Feliciano 5:10 PM EDT [facility] Device ID [id number] 11/12/2024 5:10 PM EDT [facility] Specimen Type POC Capillary 11/12/2024 5:10 PM EDT [facility] Blood Capillary blood specimen / Unknown 11/12/2024 5:08 PM EDT 11/12/2024 5:10 PM EDT us Nathaly Nowak MD LAB POINT OF CARE TE ST DOCKED DEVICE UNSOLICITED RESULTS Final Result Performing Organization Address City/State/[facility] Co de Phone Number [facility] [address] [place] [address] * (ABNORMAL) POCT glucose meter (11/12/2024 12:36 PM EDT) [facility] POCT Glucose 224(H) 74 - 99 [...] Comment 11/12/2024 12:38 PM EDT [facility] [employer]person ID Wade Feliciano 12:38 PM EDT [facility] Device ID [id number] 11/12/2024 12:38 PM EDT [facility] Specimen Type POC Capillary 11/12/2024 12:38 PM EDT [facility] Blood Capillary blood specimen / Unknown 11/12/2024 12:36 PM EDT 11/12/2024 12:38 PM EDT us Nathaly Nowak MD LAB POINT OF CARE TE ST DOCKED DEVICE UNSOLICITED RESULTS Final Result Performing Organization Address City/[facility]/ZIP Co de Phone Number [facility] [address] [place] [address] * Clostridiodes (Clostridium) difficile PCR (11/12/2024 9:50 AM EDT) [facility] C difficile PCR toxin B gene DNA Result Not Detected Not Detected 11/12/2024 11:54 AM EDT [facility] Stool Rectum structure / Unknown Non-blood Collection / Unknown 11/12/2024 9:50 AM EDT 11/12/2024 10:[address] [facility] - 11/12/2024 11:54 AM EDT This test is FDA approved for use with liquid stool specimens. This test is used for clinical purposes. It should not be regarded as investigational or for research. This laboratory is certified under the Clinical Laboratory Improvement Amendments of 1988 (CLIA-88) as qualified to perform high complexity clinical laboratory testing. Nathaly Nowak MD LAB MICROBIOLOGY - [facility] ATIYA FRITZ Final Result Performing Organization Address City/[facility]/ZIP Co de Phone Number [facility] [address] [place] [id number] * Comprehensive GI Panel by PCR (11/12/2024 9:50 AM EDT) [facility] Campylobacter PCR Result Not Detected Not Detected 11/12/2024 2:[address] [facility] Plesiomonas shigelloides PCR Result Not Detected Not Detected 11/12/2024 2:[address] [facility] Salmonella PCR Result Not Detected Not Detected 11/12/2024 2:[address] [facility] Vibrio species PCR Result Not Detected Not Detected 11/12/2024 2:[address] [facility] Vibrio cholerae PCR Result Not Detected Not Detected 11/12/2024 2:[address] [facility] Yersinia enterocolitica PCR Result Not Detected Not Detected 11/12/2024 2:[address] [facility] Enteroaggregative E. coli (EAEC) PCR Result Not Detected Not Detected 11/12/2024 2:[address] [facility] Enteropathogenic E. coli (EPEC) PCR Result Not Detected Not Detected 11/12/2024 2:[address] [facility] Enterotoxigenic E. coli (ETEC) lt/st PCR Result Not Detected Not Detected 11/12/2024 2:[address] [facility] Shiga-like Toxin-Producing E.coli (STEC) stx1/stx2 PCR Resu Not Detected Not Detected 11/12/2024 2:[address] [facility] E coli 0157 PCR Result Not Detected Not Detected 11/12/2024 2:[address] [facility] Shigella/Enteroinvas tam E. coli (EIEC) PCR Result Not Detected Not Detected 11/12/2024 2:[address] [facility] Cryptosporidium PCR Result Not Detected Not Detected 11/12/2024 2:[address] [facility] Cyclospora cayetanensis PCR Result Not Detected Not Detected 11/12/2024 2:[address] [facility] Entamoeba histolytica PCR Result Not Detected Not Detected 11/12/2024 2:[address] [facility] Giardia duodenalis (aka Giardia lamblia) PCR Result Not Detected Not Detected 11/12/2024 2:[address] [facility] Adenovirus F 40/41 PCR Result Not Detected Not Detected 11/12/2024 2:[address] [facility] Astrovirus PCR Result Not Detected Not Detected 11/12/2024 2:[address] [facility] Norovirus GI/GII PCR Result Not Detected Not Detected 11/12/2024 2:[address] [facility] Rotavirus A PCR Result Not Detected Not Detected 11/12/2024 2:[address] [facility] Sapovirus PCR Result Not Detected Not Detected 11/12/2024 2:[address] [facility] Stool Rectum structure / Unknown Non-blood Collection / Unknown 11/12/2024 9:50 AM EDT 11/12/2024 10:[address] [facility] - 11/12/2024 2:47 PM EDT [...] Nowak MD LAB MICROBIOLOGY - [facility] Final Result Performing Organization Address City/[facility]/ZIP Co de Phone Number [facility] [address] [place] [address] * C-reactive protein (11/12/2024 9:48 AM EDT) [facility] CRP, Plasma <3.0 <=8.0 mg/L 11/12/2024 10:[address] [facility] Blood Venous blood specimen / Unknown Venipuncture / Unknown 11/12/2024 9:48 AM EDT 11/12/2024 9:[address] [facility] - 11/12/2024 10:28 AM EDT This CRP test is appropriate for assessment of infection, systemic inflammation and/or tissue injury. To assess cardiovascular disease risk order high sensitivity CRP (CRPH). Nathaly Nowak MD LAB BLOOD ORDERABLES Final Resu lt Performing Organization Address City/[facility]/ZIP Co de Phone Number [facility] [address] [place] [address] * (ABNORMAL) POCT glucose meter (11/12/2024 8:20 AM EDT) [facility] POCT Glucose 138(H) 74 - 99 mg/dL 11/12/2024 8:21 AM EDT [facility] Comment:Accuracy of a glucos e [...] Comment 11/12/2024 8:21 AM EDT [facility] [employer]person ID Wade Feliciano 8:21 AM EDT [facility] Device ID [id number] 11/12/2024 8:21 AM EDT [facility] Specimen Type POC Capillary 11/12/2024 8:21 AM EDT [facility] Blood Capillary blood specimen / Unknown 11/12/2024 8:20 AM EDT 11/12/2024 8:21 AM EDT us Nathaly Nowak MD LAB POINT OF CARE TE ST DOCKED DEVICE UNSOLICITED RESULTS Final Result Performing Organization Address City/State/[facility] Co de Phone Number [facility] [address] [place] [address] * (ABNORMAL) POCT glucose meter (11/11/2024 8:18 PM EDT) [facility] Signature POCT Glucose 248(H) 74 - [...] Comment 11/11/2024 8:20 PM EDT [facility] [employer] Salesperson ID Nelda Gerber 11/12/19 8:20 PM EDT [facility] Device ID [id number] 11/11/2024 8:20 PM EDT [facility] Specimen Type POC Capillary 11/11/2024 8:20 PM EDT [facility] Blood Capillary blood specimen / Unknown 11/11/2024 8:18 PM EDT 11/11/2024 8:20 PM EDT us Nathaly Nowak MD LAB POINT OF CARE TE ST DOCKED DEVICE UNSOLICITED RESULTS Final Result [facility] [address] [place] [address] * (ABNORMAL) POCT glucose meter (11/11/2024 5:59 PM EDT) Pathologist [facility] POCT Glucose 147(H) 74 - 99 [...] Comment 11/11/2024 6:01 PM EDT [facility] [employer] Salesperson ID Wade Feliciano 6:01 PM EDT [facility] Device ID [id number] 11/11/2024 6:01 PM EDT [facility] Specimen Type POC Capillary 11/11/2024 6:01 PM EDT [facility] Blood Capillary blood specimen / Unknown 11/11/2024 5:59 PM EDT 11/11/2024 6:01 PM EDT us Nathaly oNwak MD LAB POINT OF CARE TE ST DOCKED DEVICE UNSOLICITED RESULTS Final Result [facility] [address] [place] [address] * POCT glucose meter (11/11/2024 5:20 PM EDT) [facility] POCT Glucose 84 74 - 99 [...] 11/11/2024 5:22 PM EDT [facility] [employer] Salesperson ID Wade Feliciano 5:22 PM EDT [facility] Device ID [id number] 11/11/2024 5:22 PM EDT [facility] Specimen Type POC Capillary 11/11/2024 5:22 PM EDT [facility] Blood Capillary blood specimen / Unknown 11/11/2024 5:20 PM EDT 11/11/2024 5:22 PM EDT Nathaly Nowak MD LAB POINT OF CARE TE ST DOCKED DEVICE UNSOLICITED RESULTS Final Result [facility] [address] [place] [address] * NC NEGATIVE PRESSURE WOUND THERAPY DME [...] POCT glucose meter (11/11/2024 12:08 PM EDT) [facility] POCT Glucose 226(H) 74 - 99 [...] Comment 11/11/2024 12:10 PM EDT [facility] [employer] Salesperson ID BradenWade 12:10 PM EDT [facility] Device ID [id number] 11/11/2024 12:10 PM EDT [facility] Specimen Type POC Capillary 11/11/2024 12:10 PM EDT [facility] Blood Capillary blood specimen / Unknown 11/11/2024 12:08 PM EDT 11/11/2024 12:10 PM EDT Nathaly Nowak MD LAB POINT OF CARE TE ST DOCKED DEVICE UNSOLICITED RESULTS Final Result Performing Organization Address [facility] de Phone Number [facility] [address] [place] [address] * (ABNORMAL) POCT glucose meter (11/11/2024 9:08 [...] Comment 11/11/2024 9:09 AM EDT [facility] [employer] Salesperson ID Wade Feliciano 9:09 AM EDT [facility] Device ID [id number] 11/11/2024 9:09 AM EDT [facility] Specimen Type POC Capillary 11/11/2024 9:09 AM EDT [facility] Blood Capillary blood specimen / Unknown 11/11/2024 9:08 AM EDT 11/11/2024 9:09 AM EDT us Nathaly Nowak MD LAB POINT OF CARE TE ST DOCKED DEVICE UNSOLICITED RESULTS Final Result Performing Organization Address City/[facility] Co de Phone Number [facility] [address] [place] [address] * POCT glucose meter (11/11/2024 8:27 AM EDT) [facility] POCT Glucose 87 74 - 99 [...] Comment 11/11/2024 8:28 AM EDT [facility] [employer] Salesperson ID Wade Feliciano Tobias 8:28 AM EDT [facility] Device ID [id number] 11/11/2024 8:28 AM EDT [facility] Specimen Type POC Capillary 11/11/2024 8:28 AM EDT [facility] Blood Capillary blood specimen / Unknown 11/11/2024 8:27 AM EDT 11/11/2024 8:28 AM EDT us Nathaly Nowak MD LAB POINT OF CARE TE ST DOCKED DEVICE UNSOLICITED RESULTS Final Result [facility] [address] [place] [address] * (ABNORMAL) Basic Metabolic Panel, Plasma (11/11/2024 1:12 AM EDT) [facility] Glucose, Plasma 122(H) 74 - 99 mg/dL 11/11/2024 1:[address] [facility] BUN, Plasma 10 8 - 23 mg/dL 11/11/2024 1:[address] [facility] Creatinine, Plasma 0.82 0.70 - 1.20 mg/dL 11/11/2024 1:[address] [facility] BUN/Creatinine Ratio 12 11/11/2024 1:[address] [facility] Sodium, Plasma 137 136 - 145 mmol/L 11/11/2024 1:[address] [facility] Potassium, Plasma 3.9 3.6 - 4.9 mmol/L 11/11/2024 1:[address] [facility] Chloride, Plasma 110(H) 97 - 107 mmol/L 11/11/2024 1:[address] [facility] CO2, Plasma 20(L) 22 - 29 mmol/L 11/11/2024 1:[address] [facility] Anion Gap 7 6 - 16 mmol/L 11/11/2024 1:[address] [facility] Total Calcium, Plasma 7.6(L) 8.9 - 10.2 mg/dL 11/11/2024 1:[address] [facility] eGFRcr 97.5 mL/min/1.7 3m*2 11/11/2024 1:[address] [facility] Comment:Reported eGFRcr in m L/min/1.73m2 is based the CKD-EPI 2020 equation that does not use a race coefficient. Blood Venous blood specimen / Unknown 11/11/2024 12:42 AM EDT us Nathaly Nowak MD LAB BLOOD ORDERABLES Final Resu lt [facility] [address] [place] [address] * (ABNORMAL) CBC W/O Differential (11/11/2024 12:56 AM EDT) WBC Count 11.83(H) 3.70 - 10.30 10*3/uL LAB HEMATOLOGY METHOD 11/11/2024 12:[address] [facility] RBC Count 2.97(L) 4.60 - 6.10 10*6/uL LAB HEMATOLOGY METHOD 11/11/2024 12:[address] [facility] HGB 8.9(L) 13.7 - 17.5 g/dL LAB HEMATOLOGY METHOD 11/11/2024 12:[address] [facility] HCT 27.2(L) 40.0 - 51.0 % LAB HEMATOLOGY METHOD 11/11/2024 12:[address] [facility] Platelet Count 444(H) 155 - 369 10*3/uL LAB HEMATOLOGY METHOD 11/11/2024 12:[address] [facility] MCV 92 79 - 98 fL LAB HEMATOLOGY METHOD 11/11/2024 12:[address] [facility] MCH 30.0 26.0 - 32.0 pg LAB HEMATOLOGY METHOD 11/11/2024 12:[address] [facility] MCHC 32.7 30.7 - 35.5 g/dL LAB HEMATOLOGY METHOD 11/11/2024 12:[address] [facility] RDW 13.3 11.5 - 14.5 % LAB HEMATOLOGY METHOD 11/11/2024 12:[address] [facility] MPV 9.0 8.8 - 12.5 fL LAB HEMATOLOGY METHOD 11/11/2024 12:[address] [facility] nRBC 0.0 <=0.0 per 100 WBCs LAB HEMATOLOGY METHOD 11/11/2024 12:[address] [facility] Blood Venous blood specimen / Unknown 11/11/2024 12:42 AM EDT us Nathaly Nowak MD LAB BLOOD ORDERABLES Final Resu lt [facility] [address] [place] [address] * (ABNORMAL) POCT glucose meter (11/10/2024 8:25 [...] Comment 11/10/2024 8:28 PM EDT [facility] [employer]person ID Nelda Gerber 11/11/19 8:28 PM EDT [facility] Device ID [id number] 11/10/2024 8:28 PM EDT [facility] Specimen Type POC Capillary 11/10/2024 8:28 PM EDT [facility] Blood Capillary blood specimen / Unknown 11/10/2024 8:25 PM EDT 11/10/2024 8:28 PM EDT Nathaly Nowak MD LAB POINT OF CARE TE ST DOCKED DEVICE UNSOLICITED RESULTS Final Result Performing Organization Address City/[facility] Co de Phone Number [facility] [address] [place] [address] * (ABNORMAL) POCT glucose meter (11/10/2024 4:45 [...] Comment 11/10/2024 4:47 PM EDT [facility] [employer] Salesperson ID Esperanza Parks 11/10/2024 4:47 PM EDT [facility] Device ID [id number] 11/10/2024 4:47 PM EDT [facility] Specimen Type POC Capillary 11/10/2024 4:47 PM EDT [facility] Blood Capillary blood specimen / Unknown 11/10/2024 4:45 PM EDT 11/10/2024 4:47 PM EDT Nathaly Nowak MD LAB POINT OF CARE TE ST DOCKED DEVICE UNSOLICITED RESULTS Final Result Performing Organization Address City/[facility]/ZIP Co de Phone Number [facility] [address] [place] [address] * (ABNORMAL) POCT glucose meter (11/10/2024 12:13 [...] Comment 11/10/2024 12:14 PM EDT [facility] [employer] Salesperson ID Esperanza Parks 11/10/2024 12:14 PM EDT [facility] Device ID [id number] 11/10/2024 12:14 PM EDT [facility] Specimen Type POC Capillary 11/10/2024 12:14 PM EDT [facility] Blood Capillary blood specimen / Unknown 11/10/2024 12:13 PM EDT 11/10/2024 12:14 PM EDT us Nathaly Nowak MD LAB POINT OF CARE TE ST DOCKED DEVICE UNSOLICITED RESULTS Final Result Performing Organization Address [facility] de Phone Number [facility] [address] [place] [address] * Vancomycin, Peak, Plasma Please draw ~2 hours after 0800 dose of vancomycin finishes infusing. Consider obtaining level via peripheral stick. If peripheral stick is not feasible, please ensure that line is flushed well prior to drawing level. Than... (11/10/2024 10:56 AM EDT) Vancomycin, Peak, Plasma 23.8 20.0 - 40.0 ug/mL 11/10/2024 11:[address] [facility] Blood Venous blood specimen / Unknown Venipuncture / Unknown 11/10/2024 10:56 AM EDT 11/10/2024 11:[address] [facility] - 11/10/2024 11:25 AM EDT Therapeutic Peak level: 20-40ug/mL Supra-therapeutic Peak level: >40 ug/mL us Abigail Seay MD LAB BLOOD ORDERABLES Final Res ult Performing Organization Address City/[facility]/ZIP Co de Phone Number [facility] [address] [place] [address] * (ABNORMAL) POCT glucose meter (11/10/2024 8:03 AM EDT) Pathologist [facility] POCT Glucose 174(H) 74 - 99 mg/dL [...] Comment 11/10/2024 8:04 AM EDT [facility] [employer]person ID Esperanza Parks 11/10/2024 8:04 AM EDT [facility] Device ID [id number] 11/10/2024 8:04 AM EDT [facility] Specimen Type POC Capillary 11/10/2024 8:04 AM EDT [facility] Blood Capillary blood specimen / Unknown 11/10/2024 8:03 AM EDT 11/10/2024 8:04 AM EDT Nathaly Nowak MD LAB POINT OF CARE TE ST DOCKED DEVICE UNSOLICITED RESULTS Final Result [facility] [address] [place], [place] [id number] * Vancomycin, Trough, Plasma Please draw ~30 minutes prior to dose due at 0800 on 11/10. Please do NOThold dose awaiting level to return. Consider obtaining level via peripheral stick. If peripheral stick is not feasible, please ensure that line is... (11/10/2024 7:27 AM EDT) [facility] Vancomycin, Trough, Plasma 16.2 10.0 - 20.0 ug/mL 11/10/2024 8:[address] [facility] Blood Venous blood specimen / Unknown Venipuncture / Unknown 11/10/2024 7:27 AM EDT 11/10/2024 7:[address] [facility] - 11/10/2024 8:24 AM EDT Therapeutic Trough level: 10-20ug/mL Supra-therapeutic Trough level: >20 ug/mL us Abigail Seay MD LAB BLOOD ORDERABLES Final Res ult [facility] [address] [place] [address] * (ABNORMAL) CBC and Differential (11/10/2024 12:31 AM EDT) WBC Count 10.80(H) 3.70 - 10.30 10*3/uL LAB HEMATOLOGY METHOD 11/10/2024 12:[address] [facility] RBC Count 3.06(L) 4.60 - 6.10 10*6/uL LAB HEMATOLOGY METHOD 11/10/2024 12:[address] [facility] HGB 9.1(L) 13.7 - 17.5 g/dL LAB HEMATOLOGY METHOD 11/10/2024 12:[address] [facility] HCT 28.0(L) 40.0 - 51.0 % LAB HEMATOLOGY METHOD 11/10/2024 12:[address] [facility] Platelet Count 501(H) 155 - 369 10*3/uL LAB HEMATOLOGY METHOD 11/10/2024 12:[address] [facility] MCV 92 79 - 98 fL LAB HEMATOLOGY METHOD 11/10/2024 12:[address] [facility] MCH 29.7 26.0 - 32.0 pg LAB HEMATOLOGY METHOD 11/10/2024 12:[address] [facility] MCHC 32.5 30.7 - 35.5 g/dL LAB HEMATOLOGY METHOD 11/10/2024 12:[address] [facility] RDW 13.2 11.5 - 14.5 % LAB HEMATOLOGY METHOD 11/10/2024 12:[address] [facility] MPV 8.8 8.8 - 12.5 fL LAB HEMATOLOGY METHOD 11/10/2024 12:[address] [facility] nRBC 0.0 <=0.0 per 100 WBCs LAB HEMATOLOGY METHOD 11/10/2024 12:[address] [facility] Differential Type Automated LAB HEMATOLOGY METHOD 11/10/2024 12:[address] [facility] Neutrophils % 77 % LAB HEMATOLOGY METHOD 11/10/2024 12:[address] [facility] Lymphocytes % 13 % LAB HEMATOLOGY METHOD 11/10/2024 12:[address] [facility] Monocytes % 8 % LAB HEMATOLOGY METHOD 11/10/2024 12:[address] [facility] Eosinophils % 1 % LAB HEMATOLOGY METHOD 11/10/2024 12:[address] [facility] Basophils % 0 % LAB HEMATOLOGY METHOD 11/10/2024 12:[address] [facility] Immature Granulocytes % 1 % LAB HEMATOLOGY METHOD 11/10/2024 12:[address] [facility] Neutrophils Absolute 8.32(H) 1.60 - 6.10 10*3/uL LAB HEMATOLOGY METHOD 11/10/2024 12:[address] [facility] Lymphocytes Absolute 1.40 1.20 - 3.90 10*3/uL LAB HEMATOLOGY METHOD 11/10/2024 12:53 AM EDT [facility] Monocytes Absolute 0.89 0.30 - 0.90 10*3/uL LAB HEMATOLOGY METHOD 11/10/2024 12:[address] [facility] Eosinophils Absolute 0.09 0.00 - 0.50 10*3/uL LAB HEMATOLOGY METHOD 11/10/2024 12:[address] [facility] Basophils Absolute 0.04 0.00 - 0.10 10*3/uL LAB HEMATOLOGY METHOD 11/10/2024 12:[address] [facility] Immature Granulocytes Absolute 0.06 0.00 - 0.06 10*3/uL LAB HEMATOLOGY METHOD 11/10/2024 12:[address] [facility] Blood Venous blood specimen / Unknown Venipuncture / Unknown 11/10/2024 12:31 AM EDT 11/10/2024 12:[address] [facility] - 11/10/2024 12:53 AM EDT Therapeutic decision making should be based on absolute values, rather than percentages. us Nathaly Nowak MD LAB BLOOD ORDERABLES Final Resu lt [facility] [address] [place] [address] * (ABNORMAL) Comprehensive Metabolic Panel, Plasma (11/10/2024 12:31 AM EDT) [facility] Signature Glucose, Plasma 185(H) 74 - 99 mg/dL 11/10/2024 1:[address] [facility] BUN, Plasma 9 8 - 23 mg/dL 11/10/2024 1:[address] [facility] Creatinine, Plasma 0.72 0.70 - 1.20 mg/dL 11/10/2024 1:[address] [facility] BUN/Creatinine Ratio 13 11/10/2024 1:[address] [facility] Sodium, Plasma 135(L) 136 - 145 mmol/L 11/10/2024 1:[address] [facility] Potassium, Plasma 4.0 3.6 - 4.9 mmol/L 11/10/2024 1:[address] [facility] Chloride, Plasma 106 97 - 107 mmol/L 11/10/2024 1:[address] [facility] CO2, Plasma 19(L) 22 - 29 mmol/L 11/10/2024 1:[address] [facility] Anion Gap 10 6 - 16 mmol/L 11/10/2024 1:[address] [facility] Total Calcium, Plasma 7.8(L) 8.9 - 10.2 mg/dL 11/10/2024 1:[address] [facility] Total Protein 5.6(L) 6.3 - 7.9 g/dL 11/10/2024 1:[address] [facility] Albumin, Plasma 3.1(L) 3.5 - 5.2 g/dL 11/10/2024 1:[address] [facility] AST, Plasma 33 10 - 50 U/L 11/10/2024 1:[address] [facility] ALT, Plasma 25 10 - 50 U/L 11/10/2024 1:[address] [facility] Alkaline Phosphatase, Plasma 108 40 - 115 U/L 11/10/2024 1:[address] [facility] Total Bilirubin, Plasma <0.2(L) 0.2 - 1.1 mg/dL 11/10/2024 1:[address] [facility] eGFRcr 101.4 mL/min/1.7 3m*2 11/10/2024 1:[address] [facility] Comment:Reported eGFRcr in m L/min/1.73m2 is based the CKD-EPI 2020 equation that does not use a race coefficient. Blood Venous blood specimen / Unknown Venipuncture / Unknown 11/10/2024 12:31 AM EDT 11/10/2024 12:37 AM EDT us Nathaly Nowak MD LAB BLOOD ORDERABLES Final Resu lt Performing Organization Address City/[facility]/ZIP Co de Phone Number [facility] [address] [place] [address] * (ABNORMAL) POCT glucose meter (11/09/2024 8:04 [...] Comment 11/09/2024 8:06 PM EDT [facility] [employer] Salesperson ID Maximiliano Hansen II 11/09/2024 8:06 PM EDT [facility] Device ID [id number] 11/09/2024 8:06 PM EDT [facility] Specimen Type POC Capillary 11/09/2024 8:06 PM EDT [facility] Blood Capillary blood specimen / Unknown 11/09/2024 8:04 PM EDT 11/09/2024 8:06 PM EDT us Nathaly Nowak MD LAB POINT OF CARE TE ST DOCKED DEVICE UNSOLICITED RESULTS Final Result Performing Organization Address City/[facility]/ZIP Co de Phone Number [facility] [address] [place] [address] * (ABNORMAL) POCT glucose meter (11/09/2024 4:36 [...] Comment 11/09/2024 4:38 PM EDT [facility] [employer] Salesperson ID Kristian Sosa 11/09/2024 4:38 PM EDT [facility] Device ID [id number] 11/09/2024 4:38 PM EDT [facility] Specimen Type POC Capillary 11/09/2024 4:38 PM EDT [facility] Blood Capillary blood specimen / Unknown 11/09/2024 4:36 PM EDT 11/09/2024 4:38 PM EDT Nathaly Nowak MD LAB POINT OF CARE TE ST DOCKED DEVICE UNSOLICITED RESULTS Final Result Performing Organization Address City/State/[facility] Co de Phone Number [facility] [address] [place] [address] * PICC SINGLE LUMEN ([employer] LINK) (11/09/2024 1:11 PM EDT) Narrative Estefani Barraza RN - 11/09/2024 1:11 PM EDT Estefani Barraza RN 11/09/2024 1:12 PM Insert PICC line Date/Time: 11/09/2024 1:11 PM Performed by: Estefani Barraza RN Authorized by: Nathaly Nowak MD [place] Protocol: Verbal consent obtained?: Yes Written consent [...] selection rationale: Left pacemaker Catheter Lot #: [id number] Catheter knobber: Ombu Catheter placed: Single lumen Catheter size: 4 [...] POCT glucose meter (11/09/2024 11:50 AM EDT) [facility] POCT Glucose 127(H) 74 - 99 [...] Comment 11/09/2024 11:51 AM EDT [facility] [employer] Salesperson ID Kristian Sosa 11/09/2024 11:51 AM EDT [facility] Device ID [id number] 11/09/2024 11:51 AM EDT [facility] Specimen Type POC Capillary 11/09/2024 11:51 AM EDT [facility] Blood Capillary blood specimen / Unknown 11/09/2024 11:50 AM EDT 11/09/2024 11:51 AM EDT Nathaly Nowak MD LAB POINT OF CARE TE ST DOCKED DEVICE UNSOLICITED RESULTS Final Result Performing Organization Address City/[facility]/ZIP Co de Phone Number [facility] [address] [place] [address] * (ABNORMAL) POCT glucose meter (11/09/2024 8:14 AM EDT) Pathologist [facility] POCT Glucose [...] Comment 11/09/2024 8:15 AM EDT [facility] [employer]person ID Kristian Sosa 11/09/2024 8:15 AM EDT [facility] Device ID [id number] 11/09/2024 8:15 AM EDT [facility] Specimen Type POC Capillary 11/09/2024 8:15 AM EDT [facility] Blood Capillary blood specimen / Unknown 11/09/2024 8:14 AM EDT 11/09/2024 8:15 AM EDT Nathaly Nowak MD LAB POINT OF CARE TE ST DOCKED DEVICE UNSOLICITED RESULTS Final Result Performing Organization Address City/[facility]/ZIP Co de Phone Number [facility] [address] [place] [address] * (ABNORMAL) CBC and Differential (11/09/2024 4:15 AM EDT) WBC Count 10.27 3.70 - 10.30 10*3/uL LAB HEMATOLOGY METHOD 11/09/2024 4:[address] [facility] RBC Count 3.14(L) 4.60 - 6.10 10*6/uL LAB HEMATOLOGY METHOD 11/09/2024 4:[address] [facility] HGB 9.2(L) 13.7 - 17.5 g/dL LAB HEMATOLOGY METHOD 11/09/2024 4:[address] [facility] HCT 28.3(L) 40.0 - 51.0 % LAB HEMATOLOGY METHOD 11/09/2024 4:[address] [facility] Platelet Count 468(H) 155 - 369 10*3/uL LAB HEMATOLOGY METHOD 11/09/2024 4:[address] [facility] MCV 90 79 - 98 fL LAB HEMATOLOGY METHOD 11/09/2024 4:[address] [facility] MCH 29.3 26.0 - 32.0 pg LAB HEMATOLOGY METHOD 11/09/2024 4:[address] [facility] MCHC 32.5 30.7 - 35.5 g/dL LAB HEMATOLOGY METHOD 11/09/2024 4:[address] [facility] RDW 13.1 11.5 - 14.5 % LAB HEMATOLOGY METHOD 11/09/2024 4:[address] [facility] MPV 8.7(L) 8.8 - 12.5 fL LAB HEMATOLOGY METHOD 11/09/2024 4:[address] [facility] nRBC 0.0 <=0.0 per 100 WBCs LAB HEMATOLOGY METHOD 11/09/2024 4:[address] [facility] Differential Type Automated LAB HEMATOLOGY METHOD 11/09/2024 4:[address] [facility] Neutrophils % 77 % LAB HEMATOLOGY METHOD 11/09/2024 4:[address] [facility] Lymphocytes % 13 % LAB HEMATOLOGY METHOD 11/09/2024 4:[address] [facility] Monocytes % 8 % LAB HEMATOLOGY METHOD 11/09/2024 4:[address] [facility] Eosinophils % 1 % LAB HEMATOLOGY METHOD 11/09/2024 4:[address] [facility] Basophils % 0 % LAB HEMATOLOGY METHOD 11/09/2024 4:[address] [facility] Immature Granulocytes % 1 % LAB HEMATOLOGY METHOD 11/09/2024 4:[address] [facility] Neutrophils Absolute 7.97(H) 1.60 - 6.10 10*3/uL LAB HEMATOLOGY METHOD 11/09/2024 4:[address] [facility] Lymphocytes Absolute 1.32 1.20 - 3.90 10*3/uL LAB HEMATOLOGY METHOD 11/09/2024 4:[address] [facility] Monocytes Absolute 0.83 0.30 - 0.90 10*3/uL LAB HEMATOLOGY METHOD 11/09/2024 4:[address] [facility] Eosinophils Absolute 0.07 0.00 - 0.50 10*3/uL LAB HEMATOLOGY METHOD 11/09/2024 4:[address] [facility] Basophils Absolute 0.03 0.00 - 0.10 10*3/uL LAB HEMATOLOGY METHOD 11/09/2024 4:[address] [facility] Immature Granulocytes Absolute 0.05 0.00 - 0.06 10*3/uL LAB HEMATOLOGY METHOD 11/09/2024 4:[address] [facility] Blood Venous blood specimen / Unknown Venipuncture / Unknown 11/09/2024 4:15 AM EDT 11/09/2024 4:[address] [facility] - 11/09/2024 4:26 AM EDT Therapeutic decision making should be based on absolute values, rather than percentages. us Nathaly Nowak MD LAB BLOOD ORDERABLES Final Resu lt [facility] [address] [place] [address] * (ABNORMAL) Comprehensive Metabolic Panel, Plasma (11/09/2024 4:15 AM EDT) Glucose, Plasma 171(H) 74 - 99 mg/dL 11/09/2024 4:[address] [facility] BUN, Plasma 9 8 - 23 mg/dL 11/09/2024 4:[address] [facility] Creatinine, Plasma 0.67(L) 0.70 - 1.20 mg/dL 11/09/2024 4:[address] [facility] BUN/Creatinine Ratio 13 11/09/2024 4:[address] [facility] Sodium, Plasma 134(L) 136 - 145 mmol/L 11/09/2024 4:[address] [facility] Potassium, Plasma 4.1 3.6 - 4.9 mmol/L 11/09/2024 4:[address] [facility] Chloride, Plasma 104 97 - 107 mmol/L 11/09/2024 4:[address] [facility] CO2, Plasma 21(L) 22 - 29 mmol/L 11/09/2024 4:[address] [facility] Anion Gap 9 6 - 16 mmol/L 11/09/2024 4:[address] [facility] Total Calcium, Plasma 8.4(L) 8.9 - 10.2 mg/dL 11/09/2024 4:[address] [facility] Total Protein 5.8(L) 6.3 - 7.9 g/dL 11/09/2024 4:[address] [facility] Albumin, Plasma 3.2(L) 3.5 - 5.2 g/dL 11/09/2024 4:[address] [facility] AST, Plasma 18 10 - 50 U/L 11/09/2024 4:[address] [facility] ALT, Plasma 17 10 - 50 U/L 11/09/2024 4:[address] [facility] Alkaline Phosphatase, Plasma 110 40 - 115 U/L 11/09/2024 4:[address] [facility] Total Bilirubin, Plasma <0.2(L) 0.2 - 1.1 mg/dL 11/09/2024 4:[address] [facility] eGFRcr 103.6 mL/min/1.7 3m*2 11/09/2024 4:[address] [facility] Comment:Reported eGFRcr in m L/min/1.73m2 is based the CKD-EPI 2020 equation that does not use a race coefficient. Blood Venous blood specimen / Unknown Venipuncture / Unknown 11/09/2024 4:15 AM EDT 11/09/2024 4:18 AM EDT us Nathaly Nowak MD LAB BLOOD ORDERABLES Final Resu lt [facility] [address] [place] [address] * (ABNORMAL) POCT glucose meter (11/09/2024 3:30 AM EDT) [facility] POCT Glucose 160(H) 74 - 99 mg/dL [...] Comment 11/09/2024 3:31 AM EDT [facility] [employer] Salesperson ID Maximiliano Hansen II 11/09/2024 3:31 AM EDT [facility] Device ID [id number] 11/09/2024 3:31 AM EDT [facility] Specimen Type POC Capillary 11/09/2024 3:31 AM EDT [facility] Blood Capillary blood specimen / Unknown 11/09/2024 3:30 AM EDT 11/09/2024 3:31 AM EDT Nathaly Nowak MD LAB POINT OF CARE TE ST DOCKED DEVICE UNSOLICITED RESULTS Final Result [facility] [address] [place] [address] * (ABNORMAL) POCT glucose meter (11/08/2024 7:21 PM EDT) [facility] POCT Glucose 292(H) 74 - 99 [...] 11/08/2024 7:22 PM EDT [facility] [employer] Salesperson ID Maximiliano Hansen II 11/08/2024 7:22 PM EDT [facility] Device ID [id number] 11/08/2024 7:22 PM EDT [facility] Specimen Type POC Capillary 11/08/2024 7:22 PM EDT [facility] Blood Capillary blood specimen / Unknown 11/08/2024 7:21 PM EDT 11/08/2024 7:22 PM EDT Nathaly Nowak MD LAB POINT OF CARE TE ST DOCKED DEVICE UNSOLICITED RESULTS Final Result Performing Organization Address City/[facility]/ZIP Co de Phone Number [facility] [address] [place] [address] * (ABNORMAL) POCT glucose meter (11/08/2024 5:12 [...] Comment 11/08/2024 5:14 PM EDT [facility] [employer] Salesperson ID Estefani Sheth 11/08/2024 5:14 PM EDT [facility] Device ID [id number] 11/08/2024 5:14 PM EDT [facility] Specimen Type POC Capillary 11/08/2024 5:14 PM EDT [facility] Blood Capillary blood specimen / Unknown 11/08/2024 5:12 PM EDT 11/08/2024 5:14 PM EDT Nathaly Nowak MD LAB POINT OF CARE TE ST DOCKED DEVICE UNSOLICITED RESULTS Final Result Performing Organization Address City/[facility]/ZIP Co de Phone Number [facility] [address] [place] [address] * (ABNORMAL) POCT glucose meter (11/08/2024 12:03 [...] Comment 11/08/2024 12:05 PM EDT [facility] [employer] Salesperson ID Estefani Sheth 11/08/2024 12:05 PM EDT [facility] Device ID [id number] 11/08/2024 12:05 PM EDT [facility] Specimen Type POC Capillary 11/08/2024 12:05 PM EDT [facility] Blood Capillary blood specimen / Unknown 11/08/2024 12:03 PM EDT 11/08/2024 12:05 PM EDT Nathaly Nowak MD LAB POINT OF CARE TE ST DOCKED DEVICE UNSOLICITED RESULTS Final Result Performing Organization Address [facility] de Phone Number [facility] [address] [place] [address] * Vancomycin, Peak, Plasma Please draw ~2 hours after 11/08 0600 dose of vancomycin finishes infusing.Consider obtaining level via peripheral stick. If peripheral stick is not feasible, please ensure that line is flushed well prior to drawing level.... (11/08/2024 9:24 AM EDT) Vancomycin, Peak, Plasma 29.1 20.0 - 40.0 ug/mL 11/08/2024 10:[address] [facility] Blood Venous blood specimen / Unknown Venipuncture / Unknown 11/08/2024 9:24 AM EDT 11/08/2024 9:[address] [facility] - 11/08/2024 10:31 AM EDT Therapeutic Peak level: 20-40ug/mL Supra-therapeutic Peak level: >40 ug/mL Nathaly Nowak MD LAB BLOOD ORDERABLES Final Resu lt Performing Organization Address [facility] Co de Phone Number [facility] [address] [place] [address] * (ABNORMAL) POCT glucose meter (11/08/2024 8:00 AM EDT) [facility] POCT Glucose 150(H) 74 - 99 [...] Comment 11/08/2024 8:01 AM EDT [facility] [employer]person ID Estefani Sheth 11/08/2024 8:01 AM EDT [facility] Device ID [id number] 11/08/2024 8:01 AM EDT [facility] Specimen Type POC Capillary 11/08/2024 8:01 AM EDT [facility] Blood Capillary blood specimen / Unknown 11/08/2024 8:00 AM EDT 11/08/2024 8:01 AM EDT us Nathaly Nowak MD LAB POINT OF CARE TE ST DOCKED DEVICE UNSOLICITED RESULTS Final Result [facility] [address] [place] [address] * (ABNORMAL) CBC and Differential (11/08/2024 4:39 AM EDT) [facility] WBC Count 9.18 3.70 - 10.30 10*3/uL LAB HEMATOLOGY METHOD 11/08/2024 4:[address] [facility] RBC Count 3.11(L) 4.60 - 6.10 10*6/uL LAB HEMATOLOGY METHOD 11/08/2024 4:[address] [facility] HGB 9.2(L) 13.7 - 17.5 g/dL LAB HEMATOLOGY METHOD 11/08/2024 4:[address] [facility] HCT 28.9(L) 40.0 - 51.0 % LAB HEMATOLOGY METHOD 11/08/2024 4:[address] [facility] Platelet Count 485(H) 155 - 369 10*3/uL LAB HEMATOLOGY METHOD 11/08/2024 4:[address] [facility] MCV 93 79 - 98 fL LAB HEMATOLOGY METHOD 11/08/2024 4:[address] [facility] MCH 29.6 26.0 - 32.0 pg LAB HEMATOLOGY METHOD 11/08/2024 4:[address] [facility] MCHC 31.8 30.7 - 35.5 g/dL LAB HEMATOLOGY METHOD 11/08/2024 4:[address] [facility] RDW 13.0 11.5 - 14.5 % LAB HEMATOLOGY METHOD 11/08/2024 4:[address] [facility] MPV 8.8 8.8 - 12.5 fL LAB HEMATOLOGY METHOD 11/08/2024 4:[address] [facility] nRBC 0.0 <=0.0 per 100 WBCs LAB HEMATOLOGY METHOD 11/08/2024 4:[address] [facility] Differential Type Automated LAB HEMATOLOGY METHOD 11/08/2024 4:[address] [facility] Neutrophils % 69 % LAB HEMATOLOGY METHOD 11/08/2024 4:[address] [facility] Lymphocytes % 17 % LAB HEMATOLOGY METHOD 11/08/2024 4:[address] [facility] Monocytes % 10 % LAB HEMATOLOGY METHOD 11/08/2024 4:[address] [facility] Eosinophils % 2 % LAB HEMATOLOGY METHOD 11/08/2024 4:[address] [facility] Basophils % 1 % LAB HEMATOLOGY METHOD 11/08/2024 4:[address] [facility] Immature Granulocytes % 1 % LAB HEMATOLOGY METHOD 11/08/2024 4:[address] [facility] Neutrophils Absolute 6.40(H) 1.60 - 6.10 10*3/uL LAB HEMATOLOGY METHOD 11/08/2024 4:[address] [facility] Lymphocytes Absolute 1.59 1.20 - 3.90 10*3/uL LAB HEMATOLOGY METHOD 11/08/2024 4:[address] [facility] Monocytes Absolute 0.87 0.30 - 0.90 10*3/uL LAB HEMATOLOGY METHOD 11/08/2024 4:[address] [facility] Eosinophils Absolute 0.22 0.00 - 0.50 10*3/uL LAB HEMATOLOGY METHOD 11/08/2024 4:[address] [facility] Basophils Absolute 0.05 0.00 - 0.10 10*3/uL LAB HEMATOLOGY METHOD 11/08/2024 4:[address] [facility] Immature Granulocytes Absolute 0.05 0.00 - 0.06 10*3/uL LAB HEMATOLOGY METHOD 11/08/2024 4:[address] [facility] Blood Venous blood specimen / Unknown Venipuncture / Unknown 11/08/2024 4:39 AM EDT 11/08/2024 4:[address] [facility] - 11/08/2024 4:58 AM EDT Therapeutic decision making should be based on absolute values, rather than percentages. us Nathaly Nowak MD LAB BLOOD ORDERABLES Final Resu lt [facility] [address] [place] [address] * (ABNORMAL) Comprehensive Metabolic Panel, Plasma (11/08/2024 4:39 AM EDT) Glucose, Plasma 255(H) 74 - 99 mg/dL 11/08/2024 5:[address] [facility] BUN, Plasma 10 8 - 23 mg/dL 11/08/2024 5:[address] [facility] Creatinine, Plasma 0.75 0.70 - 1.20 mg/dL 11/08/2024 5:[address] [facility] BUN/Creatinine Ratio 13 11/08/2024 5:[address] [facility] Sodium, Plasma 133(L) 136 - 145 mmol/L 11/08/2024 5:[address] [facility] Potassium, Plasma 5.2(H) 3.6 - 4.9 mmol/L 11/08/2024 5:[address] [facility] Chloride, Plasma 105 97 - 107 mmol/L 11/08/2024 5:[address] [facility] CO2, Plasma 20(L) 22 - 29 mmol/L 11/08/2024 5:[address] [facility] Anion Gap 8 6 - 16 mmol/L 11/08/2024 5:[address] [facility] Total Calcium, Plasma 7.7(L) 8.9 - 10.2 mg/dL 11/08/2024 5:[address] [facility] Total Protein 5.6(L) 6.3 - 7.9 g/dL 11/08/2024 5:[address] [facility] Albumin, Plasma 2.8(L) 3.5 - 5.2 g/dL 11/08/2024 5:[address] [facility] AST, Plasma 20 10 - 50 U/L 11/08/2024 5:[address] [facility] Comment:Hemolyzed, result ma y be falsely increased. ALT, Plasma 14 10 - 50 U/L 11/08/2024 5:[address] [facility] Alkaline Phosphatase, Plasma 119(H) 40 - 115 U/L 11/08/2024 5:[address] [facility] Total Bilirubin, Plasma <0.2(L) 0.2 - 1.1 mg/dL 11/08/2024 5:[address] [facility] eGFRcr 100.1 mL/min/1.7 3m*2 11/08/2024 5:[address] [facility] Comment:Reported eGFRcr in m L/min/1.73m2 is based the CKD-EPI 2020 equation that does not use a race coefficient. Blood Venous blood specimen / Unknown Venipuncture / Unknown 11/08/2024 4:39 AM EDT 11/08/2024 4:43 AM EDT us Nathaly Nowak MD LAB BLOOD ORDERABLES Final Resu lt [facility] [address] [place] [address] * Vancomycin, Trough, Plasma Please draw ~30 minutes prior to dose due at 0600 on 11/08. Please do NOThold dose awaiting level to return. Consider obtaining level via peripheral stick. If peripheral stick is not feasible, please ensure that line is... (11/08/2024 4:39 AM EDT) [facility] Vancomycin, Trough, Plasma 18.7 10.0 - 20.0 ug/mL 11/08/2024 5:[address] [facility] Blood Venous blood specimen / Unknown Venipuncture / Unknown 11/08/2024 4:39 AM EDT 11/08/2024 4:[address] [facility] - 11/08/2024 5:22 AM EDT Therapeutic Trough level: 10-20ug/mL Supra-therapeutic Trough level: >20 ug/mL us Nathaly Nowak MD LAB BLOOD ORDERABLES Final Resu lt [facility] [address] [place] [address] * (ABNORMAL) POCT glucose meter (11/07/2024 7:26 PM EDT) [facility] POCT Glucose 172(H) 74 - 99 [...] 11/07/2024 7:28 PM EDT [facility] [employer] Salesperson ID Maximiliano Hansen II 11/07/2024 7:28 PM EDT [facility] Device ID [id number] 11/07/2024 7:28 PM EDT [facility] Specimen Type POC Capillary 11/07/2024 7:28 PM EDT [facility] Blood Capillary blood specimen / Unknown 11/07/2024 7:26 PM EDT 11/07/2024 7:28 PM EDT us Nathaly Nowak MD LAB POINT OF CARE TE ST DOCKED DEVICE UNSOLICITED RESULTS Final Result Performing Organization Address City/[facility] Co de Phone Number [facility] [address] [place] [address] * (ABNORMAL) POCT glucose meter (11/07/2024 5:51 PM EDT) [facility] POCT Glucose 183(H) 74 - 99 mg/dL [...] Comment 11/07/2024 5:52 PM EDT [facility] [employer] Salesperson ID Ravinder Brigitte 11/07/2024 5:52 PM EDT [facility] Device ID [id number] 11/07/2024 5:52 PM EDT [facility] Specimen Type POC Capillary 11/07/2024 5:52 PM EDT [facility] Blood Capillary blood specimen / Unknown 11/07/2024 5:51 PM EDT 11/07/2024 5:52 PM EDT Nathaly Nowak MD LAB POINT OF CARE TE ST DOCKED DEVICE UNSOLICITED RESULTS Final Result Performing Organization Address [facility] Co de Phone Number [facility] [address] [place] [address] * (ABNORMAL) POCT glucose meter (11/07/2024 4:47 PM EDT) [facility] POCT Glucose 162(H) 74 - 99 [...] 11/07/2024 4:48 PM EDT [facility] [employer] Salesperson ID Estefani Sheth 11/07/2024 4:48 PM EDT [facility] Device ID [id number] 11/07/2024 4:48 PM EDT [facility] Specimen Type POC Capillary 11/07/2024 4:48 PM EDT [facility] Blood Capillary blood specimen / Unknown 11/07/2024 4:47 PM EDT 11/07/2024 4:48 PM EDT Nathaly oNwak MD LAB POINT OF CARE TE ST DOCKED DEVICE UNSOLICITED RESULTS Final Result Performing Organization Address City/[facility]/ZIP Co de Phone Number [facility] [address] [place] [address] * (ABNORMAL) POCT glucose meter (11/07/2024 12:22 PM EDT) [facility] POCT Glucose 172(H) 74 - 99 [...] Comment 11/07/2024 12:24 PM EDT [facility] [employer] Salesperson ID Estefani Sheth 11/07/2024 12:24 PM EDT [facility] Device ID [id number] 11/07/2024 12:24 PM EDT [facility] Specimen Type POC Capillary 11/07/2024 12:24 PM EDT [facility] Blood Capillary blood specimen / Unknown 11/07/2024 12:22 PM EDT 11/07/2024 12:24 PM EDT Nathaly Nowak MD LAB POINT OF CARE TE ST DOCKED DEVICE UNSOLICITED RESULTS Final Result Performing Organization Address City/[facility]/ZIP Co de Phone Number [facility] [address] [place] [address] * (ABNORMAL) CBC and Differential (11/07/2024 11:37 AM EDT) [facility] WBC Count 9.96 3.70 - 10.30 10*3/uL LAB HEMATOLOGY METHOD 11/07/2024 12:[address] [facility] RBC Count 2.81(L) 4.60 - 6.10 10*6/uL LAB HEMATOLOGY METHOD 11/07/2024 12:[address] [facility] HGB 8.5(L) 13.7 - 17.5 g/dL LAB HEMATOLOGY METHOD 11/07/2024 12:[address] [facility] HCT 26.0(L) 40.0 - 51.0 % LAB HEMATOLOGY METHOD 11/07/2024 12:[address] [facility] Platelet Count 524(H) 155 - 369 10*3/uL LAB HEMATOLOGY METHOD 11/07/2024 12:[address] [facility] MCV 93 79 - 98 fL LAB HEMATOLOGY METHOD 11/07/2024 12:[address] [facility] MCH 30.2 26.0 - 32.0 pg LAB HEMATOLOGY METHOD 11/07/2024 12:[address] [facility] MCHC 32.7 30.7 - 35.5 g/dL LAB HEMATOLOGY METHOD 11/07/2024 12:[address] [facility] RDW 13.1 11.5 - 14.5 % LAB HEMATOLOGY METHOD 11/07/2024 12:[address] [facility] MPV 9.0 8.8 - 12.5 fL LAB HEMATOLOGY METHOD 11/07/2024 12:[address] [facility] nRBC 0.0 <=0.0 per 100 WBCs LAB HEMATOLOGY METHOD 11/07/2024 12:[address] [facility] Differential Type Automated LAB HEMATOLOGY METHOD 11/07/2024 12:[address] [facility] Neutrophils % 72 % LAB HEMATOLOGY METHOD 11/07/2024 12:[address] [facility] Lymphocytes % 17 % LAB HEMATOLOGY METHOD 11/07/2024 12:[address] [facility] Monocytes % 9 % LAB HEMATOLOGY METHOD 11/07/2024 12:[address] [facility] Eosinophils % 1 % LAB HEMATOLOGY METHOD 11/07/2024 12:[address] [facility] Basophils % 1 % LAB HEMATOLOGY METHOD 11/07/2024 12:[address] [facility] Immature Granulocytes % 0 % LAB HEMATOLOGY METHOD 11/07/2024 12:[address] [facility] Neutrophils Absolute 7.19(H) 1.60 - 6.10 10*3/uL LAB HEMATOLOGY METHOD 11/07/2024 12:[address] [facility] Lymphocytes Absolute 1.66 1.20 - 3.90 10*3/uL LAB HEMATOLOGY METHOD 11/07/2024 12:[address] [facility] Monocytes Absolute 0.88 0.30 - 0.90 10*3/uL LAB HEMATOLOGY METHOD 11/07/2024 12:[address] [facility] Eosinophils Absolute 0.14 0.00 - 0.50 10*3/uL LAB HEMATOLOGY METHOD 11/07/2024 12:[address] [facility] Basophils Absolute 0.05 0.00 - 0.10 10*3/uL LAB HEMATOLOGY METHOD 11/07/2024 12:[address] [facility] Immature Granulocytes Absolute 0.04 0.00 - 0.06 10*3/uL LAB HEMATOLOGY METHOD 11/07/2024 12:[address] [facility] Blood Venous blood specimen / Unknown Venipuncture / Unknown 11/07/2024 11:37 AM EDT 11/07/2024 12:[address] [facility] - 11/07/2024 12:33 PM EDT Therapeutic decision making should be based on absolute values, rather than percentages. us Nathaly Nowak MD LAB BLOOD ORDERABLES Final Resu lt [facility] [address] [place] [address] * (ABNORMAL) Comprehensive Metabolic Panel, Plasma (11/07/2024 11:37 AM EDT) Glucose, Plasma 173(H) 74 - 99 mg/dL 11/07/2024 1:[address] [facility] BUN, Plasma 13 8 - 23 mg/dL 11/07/2024 1:[address] [facility] Creatinine, Plasma 0.92 0.70 - 1.20 mg/dL 11/07/2024 1:[address] [facility] BUN/Creatinine Ratio 14 11/07/2024 1:[address] [facility] Sodium, Plasma 136 136 - 145 mmol/L 11/07/2024 1:[address] [facility] Potassium, Plasma 4.0 3.6 - 4.9 mmol/L 11/07/2024 1:[address] [facility] Chloride, Plasma 104 97 - 107 mmol/L 11/07/2024 1:[address] [facility] CO2, Plasma 23 22 - 29 mmol/L 11/07/2024 1:[address] [facility] Anion Gap 9 6 - 16 mmol/L 11/07/2024 1:[address] [facility] Total Calcium, Plasma 7.8(L) 8.9 - 10.2 mg/dL 11/07/2024 1:[address] [facility] Total Protein 5.7(L) 6.3 - 7.9 g/dL 11/07/2024 1:[address] [facility] Albumin, Plasma 3.0(L) 3.5 - 5.2 g/dL 11/07/2024 1:[address] [facility] AST, Plasma 15 10 - 50 U/L 11/07/2024 1:[address] [facility] ALT, Plasma 16 10 - 50 U/L 11/07/2024 1:[address] [facility] Alkaline Phosphatase, Plasma 119(H) 40 - 115 U/L 11/07/2024 1:[address] [facility] Total Bilirubin, Plasma <0.2(L) 0.2 - 1.1 mg/dL 11/07/2024 1:[address] [facility] eGFRcr 92.3 mL/min/1.7 3m*2 11/07/2024 1:[address] [facility] Comment:Reported eGFRcr in m L/min/1.73m2 is based the CKD-EPI 2020 equation that does not use a race coefficient. Blood Venous blood specimen / Unknown Venipuncture / Unknown 11/07/2024 11:37 AM EDT 11/07/2024 12:23 PM EDT Nathaly Nowak MD LAB BLOOD ORDERABLES Final Resu lt Performing Organization Address City/[facility]/ZIP Co de Phone Number [facility] [address] [place] [address] * Type and Screen (11/07/2024 11:37 AM [...] ORDERABLES F inal Result Performing Organization Address [facility] de Phone Number BLOOD BANK [address] * (ABNORMAL) POCT glucose meter (11/07/2024 10:34 AM EDT) [facility] POCT Glucose 199(H) 74 - 99 [...] Comment 11/07/2024 10:36 AM EDT [facility] [employer] Salesperson ID Joy Iraheta 11/07/2024 10:36 AM EDT [facility] Device ID [id number] 11/07/2024 10:36 AM EDT [facility] Specimen Type POC Capillary 11/07/2024 10:36 AM EDT [facility] Blood Capillary blood specimen / Unknown 11/07/2024 10:34 AM EDT 11/07/2024 10:36 AM EDT Nathaly Nowak MD LAB POINT OF CARE TE ST DOCKED DEVICE UNSOLICITED RESULTS Final Result Performing Organization Address [facility] Co de Phone Number [facility] [address] [place] [address] * (ABNORMAL) POCT glucose meter (11/07/2024 9:34 AM EDT) Pathologist [facility] POCT Glucose 208(H) 74 - 99 [...] Comment 11/07/2024 9:36 AM EDT [facility] [employer] Salesperson ID Brigitte Castellon 11/07/2024 9:36 AM EDT [facility]ALTH[facility] Device ID [id number] 11/07/2024 9:36 AM EDT [facility] Specimen Type POC Capillary 11/07/2024 9:36 AM EDT [facility] Blood Capillary blood specimen / Unknown 11/07/2024 9:34 AM EDT 11/07/2024 9:36 AM EDT Nathaly Nowak MD LAB POINT OF CARE TE ST DOCKED DEVICE UNSOLICITED RESULTS Final Result Performing Organization Address City/[facility] Co de Phone Number [facility] [address] [place] [address] * (ABNORMAL) POCT glucose meter (11/07/2024 8:20 AM EDT) Pathologist [facility] POCT Glucose 137(H) 74 - 99 [...] Comment 11/07/2024 8:22 AM EDT [facility] [employer] Salesperson ID Estefani Sheth 11/07/2024 8:22 AM EDT [facility] Device ID [id number] 11/07/2024 8:22 AM EDT [facility] Specimen Type POC Capillary 11/07/2024 8:22 AM EDT [facility] Blood Capillary blood specimen / Unknown 11/07/2024 8:20 AM EDT 11/07/2024 8:22 AM EDT Nathaly Nowak MD LAB POINT OF CARE TE ST DOCKED DEVICE UNSOLICITED RESULTS Final Result Performing Organization Address City/State/[facility] Co de Phone Number [facility] [address] [place] [address] * (ABNORMAL) POCT glucose meter (11/07/2024 7:21 AM EDT) [facility] POCT Glucose 151(H) 74 - 99 [...] Comment 11/07/2024 7:22 AM EDT [facility] [employer] Salesperson ID Brigitte Castellon 11/07/2024 7:22 AM EDT [facility] Device ID [id number] 11/07/2024 7:22 AM EDT [facility] Specimen Type POC Capillary 11/07/2024 7:22 AM EDT [facility] Blood Capillary blood specimen / Unknown 11/07/2024 7:21 AM EDT 11/07/2024 7:22 AM EDT Nathaly Nowak MD LAB POINT OF CARE TE ST DOCKED DEVICE UNSOLICITED RESULTS Final Result Performing Organization Address City/[facility]/ZIP Co de Phone Number [facility] [address] [place] [address] * (ABNORMAL) POCT glucose meter (11/07/2024 6:25 AM EDT) [facility] POCT Glucose 144(H) 74 - 99 [...] Comment 11/07/2024 6:27 AM EDT [facility] [employer] Salesperson ID Nelda Gerber Chris 11/08/19 6:27 AM EDT [facility] Device ID [id number] 11/07/2024 6:27 AM EDT [facility] Specimen Type POC Capillary 11/07/2024 6:27 AM EDT [facility] Blood Capillary blood specimen / Unknown 11/07/2024 6:25 AM EDT 11/07/2024 6:27 AM EDT Nathaly Nowak MD LAB POINT OF CARE TE ST DOCKED DEVICE UNSOLICITED RESULTS Final Result Performing Organization Address City/[facility] Co de Phone Number [facility] [address] [place] [address] * (ABNORMAL) POCT glucose meter (11/07/2024 5:03 AM EDT) [facility] POCT Glucose 139(H) 74 - 99 [...] 11/07/2024 5:08 AM EDT [facility] [employer] Salesperson ID Nelda Gerber 11/08/19 5:08 AM EDT [facility] Device ID [id number] 11/07/2024 5:08 AM EDT [facility] Specimen Type POC Capillary 11/07/2024 5:08 AM EDT [facility] Blood Capillary blood specimen / Unknown 11/07/2024 5:03 AM EDT 11/07/2024 5:08 AM EDT Nathaly Nowak MD LAB POINT OF CARE TE ST DOCKED DEVICE UNSOLICITED RESULTS Final Result Performing Organization Address City/[facility] Co de Phone Number [facility] [address] [place] [address] * (ABNORMAL) POCT glucose meter (11/07/2024 4:16 AM EDT) Pathologist [facility] POCT Glucose 142(H) 74 - 99 [...] 11/07/2024 4:18 AM EDT [facility] [employer] Salesperson ID Nelda Gerber 11/08/19 4:18 AM EDT [facility] Device ID [id number] 11/07/2024 4:18 AM EDT [facility] Specimen Type POC Capillary 11/07/2024 4:18 AM EDT [facility] Blood Capillary blood specimen / Unknown 11/07/2024 4:16 AM EDT 11/07/2024 4:18 AM EDT Nathaly Nowak MD LAB POINT OF CARE TE ST DOCKED DEVICE UNSOLICITED RESULTS Final Result Performing Organization Address City/[facility] Co de Phone Number [facility] [address] [place] [address] * (ABNORMAL) POCT glucose meter (11/07/2024 3:21 [...] Comment 11/07/2024 3:23 AM EDT [facility] [employer] Salesperson ID Nelda Gerber 11/08/19 3:23 AM EDT [facility] Device ID [id number] 11/07/2024 3:23 AM EDT [facility] Specimen Type POC Capillary 11/07/2024 3:23 AM EDT [facility] Blood Capillary blood specimen / Unknown 11/07/2024 3:21 AM EDT 11/07/2024 3:23 AM EDT Nathaly Nowak MD LAB POINT OF CARE TE ST DOCKED DEVICE UNSOLICITED RESULTS Final Result [facility] [address] [place] [address] * (ABNORMAL) POCT glucose meter (11/07/2024 2:10 AM EDT) [facility] POCT Glucose 146(H) 74 - 99 [...] Comment 11/07/2024 2:12 AM EDT [facility] [employer] Salesperson ID Nelda Gerber 11/08/19 2:12 AM EDT [facility] Device ID [id number] 11/07/2024 2:12 AM EDT [facility] Specimen Type POC Capillary 11/07/2024 2:12 AM EDT [facility] Blood Capillary blood specimen / Unknown 11/07/2024 2:10 AM EDT 11/07/2024 2:12 AM EDT Nathaly Nowak MD LAB POINT OF CARE TE ST DOCKED DEVICE UNSOLICITED RESULTS Final Result Performing Organization Address [facility] de Phone Number [facility] [address] [place] [address] * (ABNORMAL) POCT glucose meter (11/07/2024 1:08 [...] for testing. Comment 11/07/2024 1:10 AM EDT [facility] [employer] Salesperson ID Nelda Gerber 11/08/19 1:10 AM EDT [facility] Device ID [id number] 11/07/2024 1:10 AM EDT [facility] Specimen Type POC Capillary 11/07/2024 1:10 AM EDT [facility] Blood Capillary blood specimen / Unknown 11/07/2024 1:08 AM EDT 11/07/2024 1:10 AM EDT Nathaly Nowak MD LAB POINT OF CARE TE ST DOCKED DEVICE UNSOLICITED RESULTS Final Result Performing Organization Address City/[facility] Co de Phone Number [facility] [address] [place] [address] * (ABNORMAL) POCT glucose meter (11/07/2024 12:10 [...] Comment 11/07/2024 12:13 AM EDT [facility] [employer] Salesperson ID Nelda Gerber 11/08/19 12:13 AM EDT [facility] Device ID [id number] 11/07/2024 12:13 AM EDT [facility] Specimen Type POC Capillary 11/07/2024 12:13 AM EDT [facility] Blood Capillary blood specimen / Unknown 11/07/2024 12:10 AM EDT 11/07/2024 12:13 AM EDT us Nathaly Nowak MD LAB POINT OF CARE TE ST DOCKED DEVICE UNSOLICITED RESULTS Final Result Performing Organization Address City/[facility] Co de Phone Number [facility] [address] [place] [address] * (ABNORMAL) POCT glucose meter (11/06/2024 11:14 PM EDT) [facility] POCT Glucose 71(L) 74 - 99 mg/dL 11/06/2024 11:16 PM EDT [facility] Comment:Accuracy of a glucos e result [...] for testing. Comment 11/06/2024 11:16 PM EDT [facility] [employer] Salesperson ID Nelda Gerber 11/07/19 11:16 PM EDT [facility]ALTH[facility]ARE LAB Device ID [id number] 11/06/2024 11:16 PM EDT [facility] Specimen Type POC Capillary 11/06/2024 11:16 PM EDT [facility] Blood Capillary blood specimen / Unknown 11/06/2024 11:14 PM EDT 11/06/2024 11:16 PM EDT us Nathaly Nowak MD LAB POINT OF CARE TE ST DOCKED DEVICE UNSOLICITED RESULTS Final Result [facility] [address] [place] [address] * (ABNORMAL) POCT glucose meter (11/06/2024 10:07 PM EDT) [facility] POCT Glucose 140(H) 74 - 99 mg/dL [...] 11/06/2024 10:09 PM EDT [facility] [employer] Salesperson ID Nelda Gerber 11/07/19 10:09 PM EDT [facility] Device ID [id number] 11/06/2024 10:09 PM EDT [facility] Specimen Type POC Capillary 11/06/2024 10:09 PM EDT [facility] Blood Capillary blood specimen / Unknown 11/06/2024 10:07 PM EDT 11/06/2024 10:09 PM EDT Nathaly Nowak MD LAB POINT OF CARE TE ST DOCKED DEVICE UNSOLICITED RESULTS Final Result [facility] [address] [place] [address] * (ABNORMAL) POCT glucose meter (11/06/2024 8:22 PM EDT) [facility] POCT Glucose 256(H) 74 - 99 [...] 11/06/2024 8:25 PM EDT [facility] [employer] Salesperson ID Nelda Gerber 11/07/19 8:25 PM EDT [facility] Device ID [id number] 11/06/2024 8:25 PM EDT [facility] Specimen Type POC Capillary 11/06/2024 8:25 PM EDT [facility] Blood Capillary blood specimen / Unknown 11/06/2024 8:22 PM EDT 11/06/2024 8:25 PM EDT Nathaly Nowak MD LAB POINT OF CARE TE ST DOCKED DEVICE UNSOLICITED RESULTS Final Result Performing Organization Address City/[facility] Co de Phone Number [facility] [address] [place] [address] * (ABNORMAL) POCT glucose meter (11/06/2024 7:31 [...] Comment 11/06/2024 7:32 PM EDT [facility] [employer] Salesperson ID Nelda Gerber 11/07/19 7:32 PM EDT [facility] Device ID [id number] 11/06/2024 7:32 PM EDT [facility] Specimen Type POC Capillary 11/06/2024 7:32 PM EDT [facility] Blood Capillary blood specimen / Unknown 11/06/2024 7:31 PM EDT 11/06/2024 7:32 PM EDT us Nathaly Nowak MD LAB POINT OF CARE TE ST DOCKED DEVICE UNSOLICITED RESULTS Final Result Performing Organization Address City/[facility] Co de Phone Number [facility] [address] [place] [address] * (ABNORMAL) POCT glucose meter (11/06/2024 6:15 [...] 11/06/2024 6:17 PM EDT [facility] [employer] Salesperson ID Estefani Sheth 11/06/2024 6:17 PM EDT [facility] Device ID [id number] 11/06/2024 6:17 PM EDT [facility] Specimen Type POC Capillary 11/06/2024 6:17 PM EDT [facility] Blood Capillary blood specimen / Unknown 11/06/2024 6:15 PM EDT 11/06/2024 6:17 PM EDT Nathaly Nowak MD LAB POINT OF CARE TE ST DOCKED DEVICE UNSOLICITED RESULTS Final Result [facility] [address] [place] [address] * (ABNORMAL) POCT glucose meter (11/06/2024 4:57 PM EDT) [facility] POCT Glucose 417(H) 74 - 99 [...] 11/06/2024 4:58 PM EDT [facility] [employer] Salesperson ID Estefani Sheth 11/06/2024 4:58 PM EDT [facility] Device ID [id number] 11/06/2024 4:58 PM EDT [facility] Specimen Type POC Capillary 11/06/2024 4:58 PM EDT [facility] Blood Capillary blood specimen / Unknown 11/06/2024 4:57 PM EDT 11/06/2024 4:58 PM EDT Nathaly Nowak MD LAB POINT OF CARE TE ST DOCKED DEVICE UNSOLICITED RESULTS Final Result Performing Organization Address [facility] Co de Phone Number [facility] [address] [place] [address] * (ABNORMAL) POCT glucose meter (11/06/2024 2:08 PM EDT) Pathologist [facility] POCT Glucose 253(H) 74 - 99 [...] for testing. Comment 11/06/2024 2:09 PM EDT [facility] [employer] Salesperson ID Brigitte Castellon 11/06/2024 2:09 PM EDT [facility] Device ID [id number] 11/06/2024 2:09 PM EDT [facility] Specimen Type POC Capillary 11/06/2024 2:09 PM EDT [facility] Blood Capillary blood specimen / Unknown 11/06/2024 2:08 PM EDT 11/06/2024 2:09 PM EDT Nathaly Nowak MD LAB POINT OF CARE TE ST DOCKED DEVICE UNSOLICITED RESULTS Final Result Performing Organization Address City/[facility] Co de Phone Number [facility] [address] [place] [address] * (ABNORMAL) POCT glucose meter (11/06/2024 12:27 PM EDT) Pathologist [facility] POCT Glucose 228(H) 74 - 99 [...] Comment 11/06/2024 12:28 PM EDT [facility] [employer] Salesperson ID Jacinta Galloway 11/06/2024 12:28 PM EDT [facility] Device ID [id number] 11/06/2024 12:28 PM EDT [facility] Specimen Type POC Capillary 11/06/2024 12:28 PM EDT [facility] Blood Capillary blood specimen / Unknown 11/06/2024 12:27 PM EDT 11/06/2024 12:28 PM EDT us Nathaly Nowak MD LAB POINT OF CARE TE ST DOCKED DEVICE UNSOLICITED RESULTS Final Result [facility] [address] [place] [address] * (ABNORMAL) Fungal Culture, Tissue and ISIDRO (11/06/2024 11:34 AM EDT) Culture Reading 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 Comment: This isolate has been identified using the FDA Approved [employer] [place] System The organism value for this result has been updated. These results have been appended to the previously preliminary verified report. Edited result: Previously reported as Yeast on 11/11/2024 at 1317 EDT. ISIDRO No fungal elements seen 12/05/2024 8:[address] [facility] Tissue [...] results. Nathaly Nowak MD LAB MICROBIOLOGY - [facility] ATIYA FRITZ Final Result [facility] [address] [place] [address] * (ABNORMAL) Tissue Culture and Gram Stain (11/06/2024 11:34 AM EDT) Culture Moderate Growth 7:[address] [facility] Culture 2+ Enterobacter cloacae complex(A) ANGÉLICA 11/15/2024 7:[address] [facility] Comment: This isolate has been identified using the FDA Approved [employer] [place] System The organism value for this result has been updated. These results have been appended to the previously preliminary verified report. Edited result: Previously reported as Gram Negative Jesus on 11/07/2024 at 1434 EDT. Culture 2+ Streptococcus mitis/oralis group(A) ANGÉLICA 11/15/2024 7:[address] [facility] Comment: This isolate has been identified using the FDA Approved [employer] CA System The organism value for this result has been updated. These results have been appended to the previously preliminary verified report. Culture 2+ Pasteurella stomatis(A) ANGÉLICA 11/15/2024 7:[address] [facility] Comment: This result was determined by MALDI tof mass spectrometry using the [employer] database and is for research use only. The organism value for this result has been updated. These results have been appended to the previously preliminary verified report. Gram Stain Result Few Gram negative rods(A) 11/15/2024 7:[address] [facility] Gram Stain Result Moderate Polymorphonuclear leukocytes(A) 11/15/2024 7:[address] [facility] Gram Stain Result Few Gram positive cocci in pairs(A) 11/15/2024 7:[address] [facility] Tissue Topography unknown / Unknown 11/06/2024 11:34 AM EDT 11/06/2024 12:18 PM EDT Comment:Pre-op diagnosis: Surgical wound infection [T81.49XA] Narrative [facility] - 11/15/2024 7:35 AM EDT [...] GENERAL ATIYA FRITZ Edited Result - Final [facility] [address] [place] [address] * (ABNORMAL) Anaerobic Culture (11/06/2024 11:34 AM EDT) Culture No anaerobes isolated 11/14/2024 1:[address] [facility] Culture Staphylococcus pseudintermedius( A) 11/14/2024 1:[address] [facility] Comment: This result was determined by MALDI tof mass spectrometry using the [employer] database and is for research use only. This is an appended report. These results have been appended to a previously final verified report. Tissue Topography unknown / Unknown 11/06/2024 11:34 AM EDT 11/06/2024 12:18 PM EDT Comment:Pre-op diagnosis: Surgical wound infection [T81.49XA] Narrative [facility] - 11/14/2024 1:25 PM EDT [...] Nathaly Nowak MD LAB MICROBIOLOGY - GENERAL GuideITE LAM Edited Result - Final Performing Organization Address [facility] [place] [address] * (ABNORMAL) Routine Culture and Gram Stain (11/06/2024 11:29 AM EDT) Culture Moderate Growth 5:[address] [facility] Culture Enterobacter cloacae complex(A) 11/08/2024 5:[address] [facility] Comment: This isolate has been identified using the FDA Approved [employer] [place] System For susceptibility results refer to: - [id number] The organism value for this result has been updated. These results have been appended to the previously preliminary verified report. Gram Stain Result No polymorphonuclear leukocytes seen 11/08/2024 5:[address] [facility] Gram Stain Result No organisms seen 11/08/2024 5:[address] [facility] Swab Topography unknown / Unknown 11/06/2024 11:29 AM EDT 11/06/2024 12:19 PM EDT Comment:Pre-op diagnosis: Surgical wound infection [T81.49XA] us Natahly Nowak MD LAB MICROBIOLOGY - GENERAL ORDE LAM Final Result Performing Organization Address [facility]/ZIP Co de Phone Number [facility] [address] [place] [address] * Fungal Culture, Routine (11/06/2024 11:29 AM EDT) Culture No Fungal Growth at 1 Week 11/13/2024 8:[address] [facility] Swab Topography unknown / Unknown 11/06/2024 11:29 AM EDT 11/06/2024 12:19 PM EDT Comment:Pre-op diagnosis: Surgical wound infection [T81.49XA] Nathaly Nowak MD LAB MICROBIOLOGY - [facility] Final Result [facility] [address] [place] [address] * (ABNORMAL) Anaerobic Culture (11/06/2024 11:29 AM EDT) Culture No anaerobes isolated 11/14/2024 1:[address] [facility] Culture Streptococcus mitis/oralis group(A) 11/14/2024 1:[address] [facility] Comment: This result was determined by MALDI tof mass spectrometry using the [employer] database and is for research use only. The organism value for this result has been updated. These results have been appended to the previously preliminary verified report. This is a corrected result. Previous organism was Mixed skin clifton on 11/10/2024 at 0718 EDT. Culture Staphylococcus pseudintermedius( A) 11/14/2024 1:[address] [facility] Comment: This isolate has been identified using the FDA Approved MALDI [employer] System This is an appended report. These results have been appended to a previously final verified report. Swab Topography unknown / Unknown 11/06/2024 11:29 AM EDT 11/06/2024 12:19 PM EDT Comment:Pre-op diagnosis: Surgical wound infection [T81.49XA] Narrative [facility] - 11/14/2024 1:25 PM EDT [...] Edited Result - Final Performing Organization Address City/[facility] [place] [address] * Routine Culture and Gram Stain (11/06/2024 11:28 AM EDT) Culture No growth at day 4 2024 11:[address] [facility] Gram Stain Result No organisms seen 11/10/2024 11:[address] [facility] Gram Stain Result No polymorphonuclear leukocytes seen 11/10/2024 11:[address] [facility] Swab Topography unknown / Unknown 11/06/2024 11:28 AM EDT 11/06/2024 12:20 PM EDT Comment:Pre-op diagnosis: Surgical wound infection [T81.49XA] Nathaly Nowak MD LAB MICROBIOLOGY - GENERAL ORDE LAM Final Result Performing Organization Address [facility] Co de Phone Number [facility] [address] [place] [address] * Fungal Culture, Routine (11/06/2024 11:28 AM EDT) Culture No Fungal Growth at 1 Week 11/13/2024 8:[address] [facility] Swab Topography unknown / Unknown 11/06/2024 11:28 AM EDT 11/06/2024 12:20 PM EDT Comment:Pre-op diagnosis: Surgical wound infection [T81.49XA] Nathaly Nowak MD LAB MICROBIOLOGY - GENERAL ORD LAM Final Result Performing Organization Address City/[facility] Co de Phone Number [facility] [address] [place] [address] * Anaerobic Culture (11/06/2024 11:28 AM EDT) Culture No growth at day 4 11/13/2024 12:[address] [facility] Swab Topography unknown / Unknown 11/06/2024 11:28 AM EDT 11/06/2024 12:20 PM EDT Comment:Pre-op diagnosis: Surgical wound infection [T81.49XA] us Nathaly Nowak MD LAB MICROBIOLOGY - GENERAL ATIYA FRITZ Final Result Performing Organization Address [facility] [place] [address] * (ABNORMAL) POCT glucose meter (11/06/2024 10:16 [...] 11/06/2024 10:18 AM EDT [facility] [employer] Salesperson ID Lacy Griffin 11/07/19 10:18 AM EDT [facility] Device ID [id number] 11/06/2024 10:18 AM EDT [facility] Specimen Type POC Capillary 11/06/2024 10:18 AM EDT [facility] Blood Capillary blood specimen / Unknown 11/06/2024 10:16 AM EDT 11/06/2024 10:18 AM EDT Nathaly Nowak MD LAB POINT OF CARE TE ST DOCKED DEVICE UNSOLICITED RESULTS Final Result Performing Organization Address City/[facility]/ZIP Co de Phone Number [facility] [address] [place] [address] * (ABNORMAL) POCT glucose meter (11/06/2024 5:58 [...] Comment 11/06/2024 6:01 AM EDT [facility] [employer] Salesperson ID Raj Laird 11/07/19 25 6:01 AM EDT [facility] Device ID [id number] 11/06/2024 6:01 AM EDT [facility] Specimen Type POC Capillary 11/06/2024 6:01 AM EDT [facility] Blood Capillary blood specimen / Unknown 11/06/2024 5:58 AM EDT 11/06/2024 6:01 AM EDT Nathaly Nowak MD LAB POINT OF CARE TE ST DOCKED DEVICE UNSOLICITED RESULTS Final Result [facility] [address] [place] [address] * (ABNORMAL) POCT glucose meter (11/06/2024 5:36 [...] Comment 11/06/2024 5:38 AM EDT [facility] [employer] Salesperson ID Shahid Sanches 11/06/2024 5:38 AM EDT [facility] Device ID [id number] 11/06/2024 5:38 AM EDT [facility] Specimen Type POC Capillary 11/06/2024 5:38 AM EDT [facility] Blood Capillary blood specimen / Unknown 11/06/2024 5:36 AM EDT 11/06/2024 5:38 AM EDT us Nathaly Nowak MD LAB POINT OF CARE TE ST DOCKED DEVICE UNSOLICITED RESULTS Final Result Performing Organization Address City/[facility]/ZIP Co de Phone Number [facility] [address] [place] [address] * (ABNORMAL) Hemoglobin A1c (11/06/2024 1:07 AM EDT) Hemoglobin A1c 7.6(H) <5.7 % 11/06/2024 11:[address] [facility] Blood Venous blood specimen / Unknown Venipuncture / Unknown 11/06/2024 1:07 AM EDT 11/06/2024 1:[address] [facility] - 11/06/2024 11:09 AM EDT HA1C Interpretive Data: Diagnosis of Diabetes: Diabetic > or = 6.5% Pre-diabetic 5.7 to 6.4% Non-diabetic < or = 5.6% Glycemic Targets for Type I and Type II Diabetics: Non- Adults <7.0% Adults <6.0% Children and Adolescents <7.5% Source: [place] [employer]. Standards of medical care in diabetes,2017. Diabetes Care.2017:40 (suppl 1):S1-S135. us Nathlay Nowak MD LAB BLOOD ORDERABLES Final Resu lt [facility] [address] [place] [address] * Blood Culture (Aerobic/Anaerobet Set) (11/06/2024 1:07 AM EDT) Culture No growth at day 5 11/11/2024 2:[address] [facility] Blood Structure of right hand / Unknown Venipuncture / Unknown 11/06/2024 1:07 AM EDT 11/06/2024 2:36 AM EDT us Nathaly Nowak MD LAB MICROBIOLOGY - GENERAL ORDE RABLES Final Result [facility] [address] [place] [address] * Blood Culture (Aerobic/Anaerobet Set) (11/06/2024 1:07 AM EDT) Culture No growth at day 5 11/11/2024 3:[address] [facility] Blood Structure of antecubital vein / Unknown Venipuncture / Unknown 11/06/2024 1:07 AM EDT 11/06/2024 2:36 AM EDT us Nathaly Nowak MD LAB MICROBIOLOGY - GENERAL ORDE RABONEIDA Final Result [facility] [address] [place] [address] * (ABNORMAL) Basic metabolic panel (11/06/2024 1:07 AM EDT) Glucose, Plasma 207(H) 74 - 99 mg/dL 11/06/2024 1:[address] [facility] BUN, Plasma 20 8 - 23 mg/dL 11/06/2024 1:[address] [facility] Creatinine, Plasma 0.92 0.70 - 1.20 mg/dL 11/06/2024 1:[address] [facility] BUN/Creatinine Ratio 22 11/06/2024 1:[address] [facility] Sodium, Plasma 136 136 - 145 mmol/L 11/06/2024 1:[address] [facility] Potassium, Plasma 4.5 3.6 - 4.9 mmol/L 11/06/2024 1:[address] [facility] Chloride, Plasma 104 97 - 107 mmol/L 11/06/2024 1:[address] [facility] CO2, Plasma 22 22 - 29 mmol/L 11/06/2024 1:[address] [facility] Anion Gap 10 6 - 16 mmol/L 11/06/2024 1:[address] [facility] Total Calcium, Plasma 9.0 8.9 - 10.2 mg/dL 11/06/2024 1:[address] [facility] eGFRcr 92.3 mL/min/1.7 3m*2 11/06/2024 1:[address] [facility] Comment:Reported eGFRcr in m L/min/1.73m2 is based the CKD-EPI 2020 equation that does not use a race coefficient. Blood Venous blood specimen / Unknown Venipuncture / Unknown 11/06/2024 1:07 AM EDT 11/06/2024 1:12 AM EDT us Nathaly Nowak MD LAB BLOOD ORDERABLES Final Resu lt Performing Organization Address City/[facility]/ZIP Co de Phone Number [facility] [address] [place] [address] * Phosphorus (11/06/2024 1:07 AM EDT) Phosphorus, Plasma 3.2 2.5 - 4.5 mg/dL 11/06/2024 1:[address] [facility] Blood Venous blood specimen / Unknown Venipuncture / Unknown 11/06/2024 1:07 AM EDT 11/06/2024 1:12 AM EDT us Nathaly Nowak MD LAB BLOOD ORDERABLES Final Resu lt Performing Organization Address City/[facility]/ZIP Co de Phone Number [facility] [address] [place] [address] * Magnesium (11/06/2024 1:07 AM EDT) Pathologist [facility] Magnesium, Plasma 2.2 1.9 - 2.4 mg/dL 11/06/2024 1:[address] [facility] Blood Venous blood specimen / Unknown Venipuncture / Unknown 11/06/2024 1:07 AM EDT 11/06/2024 1:12 AM EDT us Nathaly Nowak MD LAB BLOOD ORDERABLES Final Resu lt [facility] [address] [place] [address] * (ABNORMAL) CBC (11/06/2024 1:07 AM EDT) [facility] WBC Count 9.70 3.70 - 10.30 10*3/uL LAB HEMATOLOGY METHOD 11/06/2024 1:[address] [facility] RBC Count 2.89(L) 4.60 - 6.10 10*6/uL LAB HEMATOLOGY METHOD 11/06/2024 1:[address] [facility] HGB 8.8(L) 13.7 - 17.5 g/dL LAB HEMATOLOGY METHOD 11/06/2024 1:[address] [facility] HCT 26.2(L) 40.0 - 51.0 % LAB HEMATOLOGY METHOD 11/06/2024 1:[address] [facility] Platelet Count 542(H) 155 - 369 10*3/uL LAB HEMATOLOGY METHOD 11/06/2024 1:[address] [facility] MCV 91 79 - 98 fL LAB HEMATOLOGY METHOD 11/06/2024 1:[address] [facility] MCH 30.4 26.0 - 32.0 pg LAB HEMATOLOGY METHOD 11/06/2024 1:[address] [facility] MCHC 33.6 30.7 - 35.5 g/dL LAB HEMATOLOGY METHOD 11/06/2024 1:[address] [facility] RDW 13.2 11.5 - 14.5 % LAB HEMATOLOGY METHOD 11/06/2024 1:[address] [facility] MPV 8.7(L) 8.8 - 12.5 fL LAB HEMATOLOGY METHOD 11/06/2024 1:[address] [facility] nRBC 0.0 <=0.0 per 100 WBCs LAB HEMATOLOGY METHOD 11/06/2024 1:[address] [facility] Blood Venous blood specimen / Unknown Venipuncture / Unknown 11/06/2024 1:07 AM EDT 11/06/2024 1:12 AM EDT us Nathaly Nowak MD LAB BLOOD ORDERABLES Final Resu lt Performing Organization Address City/[facility]/ZIP Co de Phone Number [facility] [address] [place] [address] * Gold Top (11/06/2024 12:58 AM EDT) Extra Hold for add-ons 11/06/2024 3:[address] [facility] Comment:Auto resulted. Blood Venous blood specimen / Unknown 11/06/2024 12:58 AM EDT 11/06/2024 1:13 AM EDT us Nathaly Nowak MD LAB BLOOD ORDERABLES Final Resu lt Performing Organization Address [facility] Co de Phone Number [facility] [address] [place] [address] * Gold Top (11/06/2024 12:58 AM EDT) Extra Hold for add-ons 11/06/2024 3:[address] [facility] Comment:Auto resulted. Blood Venous blood specimen / Unknown 11/06/2024 12:58 AM EDT 11/06/2024 1:13 AM EDT us Nathaly Nowak MD LAB BLOOD ORDERABLES Final Resu lt Performing Organization Address City/[facility]/ZIP Co de Phone Number [facility] [address] [place] [address] * Light Green Top (11/06/2024 12:58 AM EDT) Extra Hold for add-ons 11/06/2024 3:[address] [facility] Comment:Auto resulted. Blood Venous blood specimen / Unknown 11/06/2024 12:58 AM EDT 11/06/2024 1:13 AM EDT us Nathaly Nowak MD LAB BLOOD ORDERABLES Final Resu lt Performing Organization Address [facility]/ZIP Co de Phone Number [facility] [address] [place] [address] * Light Blue Top (11/06/2024 12:58 AM EDT) Extra Hold for add-ons 11/06/2024 3:[address] [facility] Comment:Auto resulted. Blood Venous blood specimen / Unknown 11/06/2024 12:58 AM EDT 11/06/2024 1:13 AM EDT Nathaly Nowak MD LAB BLOOD ORDERABLES Final Resu lt Performing Organization Address [facility] Co de Phone Number [facility] [address] [place] [address] * Light Blue Top (11/06/2024 12:58 AM EDT) Extra Hold for add-ons 11/06/2024 3:[address] [facility] Comment:Auto resulted. Blood Venous blood specimen / Unknown 11/06/2024 12:58 AM EDT 11/06/2024 1:13 AM EDT us Nathaly Nowak MD LAB BLOOD ORDERABLES Final Resu lt Performing Organization Address City/[facility] Co de Phone Number [facility] [address] [place] [address] * (ABNORMAL) POCT glucose meter (11/06/2024 12:45 AM EDT) POCT Glucose 204(H) 74 - 99 mg/dL 11/06/2024 12:48 AM EDT [facility] Comment:Accuracy of a glucos e [...] Comment 11/06/2024 12:48 AM EDT [facility] [employer] Salesperson ID Raj Laird 11/07/19 12:48 AM EDT [facility] Device ID [id number] 11/06/2024 12:48 AM EDT [facility] Specimen Type POC Capillary 11/06/2024 12:48 AM EDT [facility] Blood Capillary blood specimen / Unknown 11/06/2024 12:45 AM EDT 11/06/2024 12:48 AM EDT Nathaly Nowak MD LAB POINT OF CARE TE ST DOCKED DEVICE UNSOLICITED RESULTS Final Result Performing Organization Address City/State/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
--- OUTSIDE RECORDS SUMMARY | 2024-11-06 10:08 | XMS_ITS | Encounter Summary ---
Author Organization Healthcare Address [address] [place] [address] Care Team Providers Care Flooring Machine Feeder Name Role Phone Asad Victor MD Primary Care Provider + [phone] Reason for Visit * Reason Comments Post-op Problem Wound Check * Auth/Cert (Routine) Specialty Diagnoses / Procedures Referred By Contac t Referred To Contact Diagnoses Wound infection Post-op Vasc Sx wounds - sx on 10/17 at Nathaly Nowak MD [address] [address] Phone: tel: fax: [facility] Emergency Department [address] [place] [address] Phone: tel: Referral ID Status Reason Start Date Expiration Date Visits Re quested Visits Authorized [id number] 1 1 Encounter Details Date Type Department Care Team (Late st Contact Info) Description 11/06/2024 10:08 AM EDT - 11/06/2024 11:38 AM EDT Surgery [facility] OPERATING ROOM [address] [place] [address] Nathaly Nowak MD [id number] [place] [address] Left groin exploration and washout, [...] time in the past 12 m [facility], were you homeless or living in a [...] drink first t dino in the morning (EYE-OPEN TENTER OPERATOR) to steady your nerves or to get rid of a hangover? 0 10/18/2021 CAGE Questionnaire Score 0 022 Utilities Answer Date Recorded In the past 12 months has [employer], gas, oil, or water [employer] threatened to shut off services in your [...] Carmona with any questions or concerns at [phone]. It is important that you get your [...] Note Bev Borja 64 y.o. male CSN: [id number] Admission: 11/05/2024 9:45 PM Primary Problem: Wound infection Primary Arch Support Maker: Primary Caregiver: Self Assistance Available at [...] previous admission in last 30 days Follow-up: [facility] [address] [facility] [place] [address] Go to Infusion Clinic. Please arrive at 11 am daily. [facility] [address] Go to Wound care clinic. First appointment is 1:10 pm. Please call [phone] with scheduling concerns. Discharge Transportation: Transportation Anticipated: medical transport Transportation Home at Discharge: Medical Transport Follow Up Transport: Transportation Needed to Follow up Appoinments: Medical Transport Additional Comments: Patient discharging home. No other SW needs identified. Mariia Monterroso CALL OR CONTACT CENTRE COACH * Discharge Summary - Melecio Echevarria DO - 11/14/2024 12:46 PM EDT Hospitalization Admit Date/Time: 11/05/2024 9:45 PM Admitting Attending: Nathaly Nowak Discharge Date: 11/14/2024 Discharge Attending Physician: Nathaly Nowak MD PCP name and Address: Asad Victor MD (Inactive) [address] [place] [address] / [address] [place] [address] Referring provider name and address: Wade Cowart, DO [address] [place] [address] Chief Concern, Brief History of Present Illness, and Hospital Course Mr. Borja is a 64 y/o male that presented to [facility] on 11/06/2024 for surgical wound [...] Your Medications These medications were sent to [facility] Infusion Services - [place]DA Solorzano - [address], [place] [address] ertapenem injection micafungin injection Discharge Diagnosis Medical [...] Time Provider Department Center 11/26/2024 2:00 PM [facility] 1 [facility] 11/26/2024 2:30 PM [facility] 2 [facility] 11/26/2024 3:20 PM [facility] 11/29/2024 2:30 PM Oscar Appiah [...] a 64 y/o male that presented to [facility] on 11/06/2024 for surgical wound [...] Note Bev Borja 64 y.o. male CSN: [id number] Admission: 11/05/2024 9:45 PM Primary Problem: Wound infection Wound vac to be delivered today by at bedside. SW sent referral/orders to [facility] (fax [phone]) and infusion clinic (fax [phone]). Plan to discharge tomorrow. SW will continue to follow. Mariia Monterroso CALL OR CONTACT CENTRE COACH * Progress Notes - Bianca Knight PharmD - 11/13/2024 12:55 PM EDT Vancomycin therapy has been stopped per ID recommendation. Pharmacist will sign off from dosing and monitoring vancomycin. Please re- consult a pharmacist if more vancomycin is indicated. Bianca Knight PharmD, [facility] * Progress Notes - Ailin [...] Lumen PICC Antimicrobial Regimen: IV Ertapenem 1g [id number] start date:11/06/2024 Projected End date:12/18/2024 IV Micafungin 150mg [id number] Start date: 11/12/2024 Projected End Date: 12/24/2024 [...] OPAT Team Attn: Dr Kraus Fax #: [phone] Appointments: (Dr Appiah 08/02/2024 at 2.30pm) at: [facility]: [address] [place] [address] (Select Option 3 for IV Antibiotic / PICC line related issues) For questions regarding OPAT prior to discharge, reach out to the OPAT team via Zipidee Secure Chat (Group: OPAT Referral Team). For all questions regarding OPAT after discharge should be directed to the OPAT Team at (Select Option 3 for IV Antibiotics/PICC Issues) between 8am-5pm. After 5 pm, or during weekends/ holidays, please call the paging pen ruler operator at to reach the on-call ID [...] included. [facility] Department of Surgery Division of Vascular Surgery Surgery Progress Note 11/13/24 Bev Borja Subjective Subjective: HPI 64yoM PMHx COPD, T2DM, HLD, HTN, RLS, CAD s/p PCI (on Xarelto) s/p pacemaker c/b left SANDIP pseudoaneurysm s/p thrombin injection 09/21/24, CLI s/p left femoral endarterectomy with EIA/MECHATRONICS TECHNOLOGIST stenting 10/17/24, who presented to [facility] 11/05/2024 with wound infection. 11/06/24: [...] 09/21/24, CLI s/p left femoral endarterectomy with EIA/MECHATRONICS TECHNOLOGIST stenting 10/17/24, who presented to [facility] 11/05/2024 with wound infection. POD [...] as documented. * Progress Notes - Dotty eSthi MD - 11/13/2024 8:06 AM EDT Images [...] the findings. Cardiac Device Check - PRE-OR [facility] EP-Device Clinic: Pre-operative CIED Report Assessment and Sara-Procedural Reommendations: Name: Bev Borja Date: 10/17/2024 : 1960 Age: 64 y.o. 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 Lead integrity [...] recommendations. Supporting reports can be found in Revstr media file. Micro: Susceptibility data from last [...] Units Date/Time Tissue Culture and Gram Stain [[id number]] (Abnormal) (Susceptibility) Collected: 11/06/24 1134 Order Status: Completed Specimen: Tissue from Other (specify site) Updated: 11/12/24 1334 Culture Moderate Growth 2+ Enterobacter cloacae complex Comment: This isolate has been identified using the FDA Approved Research Journalistyper CA System The organism value for this result has been updated. These results have been appended to the previously preliminary verified report. Edited result: Previously reported as Gram Negative Jesus on 11/07/2024 at 1434 EDT. 2+ Streptococcus mitis/oralis group Comment: This isolate has been identified using the FDA Approved MALDI s0cketyper CA System The organism value for this result has been updated. These results have been appended to the previously preliminary verified report. 2+ Pasteurella stomatis Comment: This result was determined by MALDI tof mass spectrometry using the SimplyInsured database and is for research use only. [...] stewardship team. Comprehensive GI Panel by PCR [[id number]] (Normal) Collected: 11/12/24 0950 Order Status: Completed [...] if clinically indicated. Clostridiodes (Clostridium) difficile PCR [[id number]] (Normal) Collected: 11/12/24 0950 Order Status: Completed [...] high complexity clinical laboratory testing. Anaerobic Culture [[id number]] Collected: 11/06/24 1128 Order Status: Completed Specimen: Swab from Other (specify site) Updated: 11/12/24 1118 Culture No growth at day 4 Fungal Culture, Tissue and ISIDRO [[id number]] (Abnormal) Collected: 11/06/24 1134 Order Status: Completed Specimen: Tissue from Other (specify site) Updated: 11/12/24 1033 Culture Reading Mycological 4 Weeks Rare Temple Sana parapsilosis Comment: This isolate has been identified using the FDA Approved MALDI s0cketyper CA System The organism value for this result has been updated. These results have been appended to the previously preliminary verified report. Edited result: Previously reported as Yeast on 11/11/2024 at 1317 EDT. ISIDRO No fungal elements seen Additional Susceptibilities and/or Identification [[id number]] Collected: 11/11/24 1240 Order Status: Completed Specimen: Tissue from Wound (specify site): Additional Susceptibilities and/or Identification [[id number]] Collected: 11/11/24 1238 Order Status: Completed Specimen: Tissue from Wound (specify site): Additional Susceptibilities and/or Identification [[id number]] Collected: 11/11/24 1237 Order Status: Completed Specimen: Tissue from Wound (specify site): AFB Culture, Non Respiratory Source and Acid Fast Stain [[id number]] Collected: 11/06/24 1134 Order Status: Completed Specimen: Tissue from Other (specify site) Updated: 11/11/24 0938 AFB Culture No Mycobacterial Growth <1 Week Acid Fast Stain No acid fast bacilli seen Blood Culture (Aerobic/Anaerobet Set) [[id number]] Collected: 11/06/24106 Order Status: Completed Specimen: Blood from AC, Left Updated: 11/11/24 0301 Culture No growth at day 5 Blood Culture (Aerobic/Anaerobet Set) [[id number]] Collected: 11/06/24106 Order Status: Completed Specimen: Blood from Hand, Right Updated: 11/11/24 0249 Culture No growth at day 5 Micro: BC x2 11/06: negative Wound culture 11/06: Enterobacter cloacae complex Tissue culture 11/06: Enterobacter cloacae complex, streptococcus mitis/oralis, pastuerella stomatis Anaerobic culture 11/06: Staphylococcus Pseudintermedius Fungal culture 11/06: rare colony asna parapsilosis Stool PCR 11/12: c diff neg, [...] OSH. [facility] and [...] to stay a facility, plan for [facility] daily IV abx. Plan [...] mg 1,000 mg Oral q6h [facility] Anthony Reyes MD 1,000 mg at 11/12/24 1805 aspirin chewable tablet 81 mg 81 mg Oral Daily Reid Daniels MD 81 mg at 11/13/24 0839 glucose (Glutose) 40 % oral gel 15-30 grams of glucose 15-30 grams of glucose Sublingual q15 min PRN Reid Daniles MD Or dextrose 10 % (D10W) bolus [...] Prevent or Manage Pain Flowsheets (Taken 11/11/2024 0639 by Jonathan Vale RN) Sensory Stimulation Regulation: care clustered lighting decreased quiet environment promoted Medication Review/Management: medications reviewed * Consults - Anabel Ovalle RD - 11/12/2024 9:59 AM EDT Adult Nutrition Evaluation Note Bev Borja 64 y.o. male CSN: [id number] Room/Bed 682/682B Nutrition evaluation type: assessment Reason for evaluation: LOS Hospital course: 64 y.o. male with PMHx significant for COPD, CAD s/p PCI (on Xarelto) s/p pacemaker c/b left SANDIP pseudoaneurysm s/p thrombin injection 09/21/24, chronic limb ischemia s/p left femoralendarterectomy with external iliac/common femoral artery stenting 10/17/24, T2DM, HLD, HTN, RLS who presented to [facility] on 11/05/2024 with problems with [...] (194 lb 3.6 oz) BMI (Calculated): 30.41 Dyke Body Weight (kg): 67.3 Percent Dyke Body Weight: 131 Adjusted Body Weight (kg): [...] oz) Estimated Needs: Kcal/ K-30 Kcal Provided: 2942-6815 Kcal Needs Based On: Adjusted weight Gm Protein/ Kg : 1.2-1.5 Protein Provided: 87-108 Protein Needs Based On: Adjusted weight Metabolic Cart Study Results: Current Nutrition Intake: Diet Order: Adult Diet Diet Texture: Regular Adult Carbohydrate Restriction: Consistent CHO 1 (9274-5434 Jatinder, 65 g/meal) Percent Meals Eaten (%): avg 63% x 6 emals Diet Experience and Nutrition History: Diet Education Provided: Will monitor Pertinent home medications: clopidogrel, docusate sodium, Lantus, Humalog, lisinopril, metoprolol tartrate, pravastatin, rivaroxaban, ropinirole, tamsulosin Christian needs: Nutrition Focused Physical Exam: Physical exam [...] ENDARTERECTOMY N/A 2017 Endarterectomy Carotid Artery from [employer] CORONARY ANGIOPLASTY Left Coronary Angiography With Concomitant Left Heart Catheterization from [employer] CORONARY ARTERY BYPASS GRAFT N/A 2018 3V ELBOW SURGERY Right ENDARTERECTOMY Left 10/17/2024 common/SFA/Profunda thromboendarterectomy, EIA/MECHATRONICS TECHNOLOGIST stent HERNIA REPAIR KNEE ARTHROSCOPY Left VASCULAR SURGERY Left 09/21/2024 MECHATRONICS TECHNOLOGIST pseudoaneurym injection [3] Social History Tobacco Use [...] chloride, sodium chloride * Progress Notes - Ried Daniels MD - 11/12/2024 9:04 AM EDT Images from the original note were not included. [facility] Department of Surgery Division of Vascular Surgery Surgery Progress Note 11/12/24 Bev Perez Cristoferkeo Subjective Subjective: HPI 64yoM PMHx COPD, T2DM, HLD, HTN, RLS, CAD s/p PCI (on Xarelto) s/p pacemaker c/b left SANDIP pseudoaneurysm s/p thrombin injection 09/21/24, CLI s/p left femoral endarterectomy with EIA/MECHATRONICS TECHNOLOGIST stenting 10/17/24, who presented to [facility] 11/05/2024 with wound infection. 11/06/24: [...] 09/21/24, CLI s/p left femoral endarterectomy with EIA/MECHATRONICS TECHNOLOGIST stenting 10/17/24, who presented to [facility] 11/05/2024 with wound infection. POD [...] the findings. Cardiac Device Check - PRE-OR [facility] EP-Device Clinic: Pre-operative CIED Report Assessment and Sara-Procedural Reommendations: Name: Bev Borja Date: 10/17/2024 : 1960 Age: 64 y.o. 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 Lead integrity [...] recommendations. Supporting reports can be found in Revstr media file. Micro: Susceptibility data from last [...] Units Date/Time Tissue Culture and Gram Stain [[id number]] (Abnormal) (Susceptibility) Collected: 11/06/24 1134 Order Status: Completed Specimen: Tissue from Other (specify site) Updated: 11/12/24 1334 Culture Moderate Growth 2+ Enterobacter cloacae complex Comment: This isolate has been identified using the FDA Approved Drug Response Dxer CA System The organism value for this result has been updated. These results have been appended to the previously preliminary verified report. Edited result: Previously reported as Gram Negative Jesus on 11/07/2024 at 1434 EDT. 2+ Streptococcus mitis/oralis group Comment: This isolate has been identified using the FDA Approved Drug Response Dxer CA System The organism value for this result has been updated. These results have been appended to the previously preliminary verified report. 2+ Pasteurella stomatis Comment: This result was determined by MALDI tof mass spectrometry using the SimplyInsured database and is for research use only. [...] stewardship team. Comprehensive GI Panel by PCR [[id number]] (Normal) Collected: 11/12/24 0950 Order Status: Completed [...] if clinically indicated. Clostridiodes (Clostridium) difficile PCR [[id number]] (Normal) Collected: 11/12/24 0950 Order Status: Completed [...] high complexity clinical laboratory testing. Anaerobic Culture [[id number]] Collected: 11/06/24 1128 Order Status: Completed Specimen: Swab from Other (specify site) Updated: 11/12/24 1118 Culture No growth at day 4 Fungal Culture, Tissue and ISIDRO [[id number]] (Abnormal) Collected: 11/06/24 1134 Order Status: Completed Specimen: Tissue from Other (specify site) Updated: 11/12/24 1033 Culture Reading Mycological 4 Weeks Rare Temple Sana parapsilosis Comment: This isolate has been identified using the FDA Approved Research Journalistyper CA System The organism value for this result has been updated. These results have been appended to the previously preliminary verified report. Edited result: Previously reported as Yeast on 11/11/2024 at 1317 EDT. ISIDRO No fungal elements seen Additional Susceptibilities and/or Identification [[id number]] Collected: 11/11/24 1240 Order Status: Completed Specimen: Tissue from Wound (specify site): Additional Susceptibilities and/or Identification [[id number]] Collected: 11/11/24 1238 Order Status: Completed Specimen: Tissue from Wound (specify site): Additional Susceptibilities and/or Identification [[id number]] Collected: 11/11/24 1237 Order Status: Completed Specimen: Tissue from Wound (specify site): AFB Culture, Non Respiratory Source and Acid Fast Stain [[id number]] Collected: 11/06/24 1134 Order Status: Completed Specimen: Tissue from Other (specify site) Updated: 11/11/24 0938 AFB Culture No Mycobacterial Growth <1 Week Acid Fast Stain No acid fast bacilli seen Blood Culture (Aerobic/Anaerobet Set) [[id number]] Collected: 11/06/24106 Order Status: Completed Specimen: Blood from AC, Left Updated: 11/11/24 0301 Culture No growth at day 5 Blood Culture (Aerobic/Anaerobet Set) [[id number]] Collected: 11/06/24106 Order Status: Completed Specimen: Blood [...] OSH. On 11/06, pt went to the [facility] vascular surgery for left groin exploration [...] want to stay a facility, plan for [facility] daily IV abx. Plan for ID [...] mg 1,000 mg Oral q6h [facility] Anthony Reyes MD 1,000 mg at 11/12/24 1356 aspirin chewable tablet 81 mg 81 mg Oral Daily Reid Daniels MD 81 mg at 11/12/24 0938 cefepime (Maxipime) 2 g in sodium chloride 0.9% 100 mL IVPB (vial adapter required) 2 g [id number] Reid Daniels MD 36.7 mL/hr at 11/12/24 [...] PM Anthony Reyes MD 0.4 mg at [id number] Vancomycin HCl in NaCl (Vancocin) IVPB 1,000 [...] send him home on micafungin as Rare Temple Sana parapsilosis grew and we do not [...] Goal: Fluid and Electrolyte Balance 11/11/20242347 by Jonahtan Vale RN Outcome: Ongoing, Progressing 11/11/20242336 by [...] (HOB) Positioning: HOB elevated Taken 11/10/20242222 by bEer Hanson RN Pressure Reduction Devices: positioning supports [...] Note Bev Borja 64 y.o. male CSN: [id number] Admission: 11/05/2024 9:45 PM Primary Problem: Wound infection Patient refusing inpatient placement for IV abx. [facility] infusion clinic can provide treatment. Face sheet, IV abx orders, and order for PICC care/labs/dressing changes need to be faxed to [phone]. Voicemail left with wound care clinic. Wound vac approved per , delivery pending. Crysll continue to follow. Mariia Monterroso CALL OR CONTACT CENTRE COACH * Progress Notes - Dotty Sethi MD [...] Images were obtained for surgical purposes. See Terrlel Gautam's surgical note in the patient's chart for the findings. Cardiac Device Check - PRE-OR [facility] EP-Device Clinic: Pre-operative CIED Report Assessment and Sara-Procedural Reommendations: Name: Bev Borja Date: 10/17/2024 : 1960 Age: 64 y.o. 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 Lead integrity [...] recommendations. Supporting reports can be found in Revstr media file. Micro: Susceptibility data from last [...] Non Respiratory Source and Acid Fast Stain [[id number]] Collected: 11/06/24 1134 Order Status: Completed Specimen: Tissue from Other (specify site) Updated: 11/11/24 0938 AFB Culture No Mycobacterial Growth <1 Week Acid Fast Stain No acid fast bacilli seen Blood Culture (Aerobic/Anaerobet Set) [[id number]] Collected: 11/06/24106 Order Status: Completed Specimen: Blood from AC, Left Updated: 11/11/24 0301 Culture No growth at day 5 Blood Culture (Aerobic/Anaerobet Set) [[id number]] Collected: 11/06/24 010 Order Status: Completed Specimen: Blood from Hand, Right Updated: 11/11/24 0249 Culture No growth at day 5 Anaerobic Culture [[id number]] Collected: 11/06/24 1128 Order Status: Completed Specimen: Swab from Other (specify site) Updated: 11/10/24 1441 Culture No growth at day 4 Routine Culture and Gram Stain [[id number]] Collected: 11/06/24 1128 Order Status: Completed Specimen: Swab from Other (specify site) Updated: 11/10/24 1124 Culture No growth at day 4 Gram Stain Result No organisms seen No polymorphonuclear leukocytes seen Anaerobic Culture [[id number]] (Abnormal) Collected: 11/06/24 112 Order Status: Completed Specimen: Swab from Other (specify site) Updated: 11/10/24 0718 Culture No anaerobes isolated Mixed skin clifton Comment: The organism value for this result has been updated. These results have been appended to the previously preliminary verified report. Narrative: Mixed Skin Clifton includes Streptococcus mitis/oralis group and Staphylococcus Pseudintermedius Anaerobic Culture [[id number]] (Abnormal) Collected: 11/06/24 1134 Order Status: Completed [...] OSH. [facility], [facility] groin exploration and [...] mL IVPB (vial adapter required) 2 g Cumynitskkne2i Reid Daniels MD 36.7 mL/hr at 11/11/24 [...] tablet 30 mg 30 mg Oral Daily Ried Daniels MD methocarbamol [...] PM Anthony Reyes MD 0.4 mg at [id number] Vancomycin HCl in NaCl (Vancocin) IVPB 1,000 [...] the original note were not included. [facility] Department of Surgery Division of Vascular Surgery Surgery Progress Note 11/11/24 Bev Borja Subjective Subjective: HPI 64yoM PMHx COPD, T2DM, HLD, HTN, RLS, CAD s/p PCI (on Xarelto) s/p pacemaker c/b left SANDIP pseudoaneurysm s/p thrombin injection 09/21/24, CLI s/p left femoral endarterectomy with EIA/MECHATRONICS TECHNOLOGIST stenting 10/17/24, who presented to [facility] 11/05/2024 with wound infection. 11/06/24: [...] 09/21/24, CLI s/p left femoral endarterectomy with EIA/MECHATRONICS TECHNOLOGIST stenting 10/17/24, who presented to [facility] 11/05/2024 with wound infection. POD [...] Edited by: Reid Daniels MD at 11/11/2024 0892 Dispo: Continue Current Level of Care Reid [...] to follow, Submitted by: Kalpesh Lord PharmD, [facility] 11/10/2024 12:45 PM * Care Plan [...] 09/21/24, CLI s/p left femoral endarterectomy with EIA/MECHATRONICS TECHNOLOGIST stenting 10/17/24, who presented to [facility] 11/05/2024 with wound infection. 11/06/24: [...] 09/21/24, CLI s/p left femoral endarterectomy with EIA/MECHATRONICS TECHNOLOGIST stenting 10/17/24, who presented to [facility] 11/05/2024 with wound infection. 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 11/06/24: [...] 09/21/24, CLI s/p left femoral endarterectomy with EIA/MECHATRONICS TECHNOLOGIST stenting 10/17/24, who presented to [facility] 11/05/2024 with wound infection. POD [...] Level of Care [place] M4 student [facility] Cosigned by Nathaly Nowak MD at 11/11/2024 [...] PT session. Patient reports he went to [facility] 12th floor via w/c yesterday to [...] Mobility: Ambulatory- community (was utilizing scooter at [facility] since discharge) Mobility [place]: Independent gait with device History of Falls: [...] Mobility Bed Mobility Exam: Scooting/Bridging Level of [place]: Modified independence Bed Mobility Exam: Supine to Sit Level of [place]: Modified [place] Transfers Transfer Exam: Sit to stand Level of [place]: Modified independence Assistive Device: Rollator Transfer Exam: Stand to Sit Level of [place]: Modified independence Assistive Device: Rollator Ambulation Device: [...] maintain/improve functional mobility and endurance. Standardized Assessments [facility] 6-Clicks Mobility Assessment Difficulty patient [...] 3-5 steps with a railing?: A little [facility] 6-Clicks Mobility Assessment Total : [...] Mobility Ambulatory- community (was utilizing scooter at [facility] since discharge) Mobility [place] Independent gait with device History of Falls [...] distal to knee) BED MOBILITY Level of [place] Physical/Non-physical Assist Adaptive Equipment Utilized Scooting/ Bridging Modified independence Supine to Sit Modified [place] TRANSFERS Level of [place] Physical/Non-physical Assist Adaptive Equipment Utilized Sit to Stand Modified independence Rollator Stand to sit Modified independence Rollator Toilet Transfer Modified independence Grab bar FUNCTIONAL MOBILITY Ambulation Modified independent 200ft x2 with seated rest break between bouts; RPE 5-7/10. Cues forsafety with rollator brakes. Rollator Comments BALANCE Postural Appearance Posture: Within Functional Limits Level of [place] Balance Support Static Sit Independent Feet supported [...] needed areas of treatment space. Level of [place] Interventions Grooming Modified independent Standing sinkside Pt [...] Note Bev Borja 64 y.o. male CSN: [id number] Admission: 11/05/2024 9:45 PM Primary Problem: Wound [...] follow and assist as needed. Mariia Monterroso CALL OR CONTACT CENTRE COACH * Progress Notes - Bianca Knight PharmD [...] to follow, Submitted by: Bianca Knight, ElizabethD, [facility] 11/08/2024 11:15 AM * Progress Notes - Melecio Echevarria DO - 11/08/2024 7:18 AM EDT Images from the original note were not included. [facility] Department of Surgery Division of Vascular Surgery Surgery Progress Note 11/08/24 Bev Borja Subjective Subjective: HPI 64yoM PMHx COPD, T2DM, HLD, HTN, RLS, CAD s/p PCI (on Xarelto) s/p pacemaker c/b left SANDIP pseudoaneurysm s/p thrombin injection 09/21/24, CLI s/p left femoral endarterectomy with EIA/MECHATRONICS TECHNOLOGIST stenting 10/17/24, who presented to [facility] 11/05/2024 with wound infection. 11/06/24: [...] completed 10/19 Pseudoaneurysm of left femoral artery ([facility]) COPD (chronic obstructive pulmonary disease) ([facility]) Overview Signed 10/18/2021 7:30 PM by Gallo Gallardo MD Not on home inhalers A-fib ([facility]) Overview Addendum 10/19/2021 10:39 AM by Giovanna Junior APRN Hold anticoagulation Metoprolol restarted BPH (benign prostatic hyperplasia) Overview Addendum 10/19/2021 10:41 AM by Giovanna Junior APRN Flomax restarted Subarachnoid hemorrhage ([facility]) Overview Addendum 10/20/2021 8:23 AM by Giovanna Junior APRN Left frontal, right occipital NSGY consulted - Repeat CTH showing slight worsening of tSAH - no need for further imaging, will continue to follow clinically 10/20: spoke with NSGY via phone and stated to hold ASA and Xarelto for 2 weeks Closed compression fracture of L3 lumbar vertebra, initial encounter ([facility]) Overview Signed 10/18/2021 7:35 PM [...] 09/21/24, CLI s/p left femoral endarterectomy with EIA/MECHATRONICS TECHNOLOGIST stenting 10/17/24, who presented to [facility] 11/05/2024 with wound infection. POD [...] 1960 Age: 64 y.o. 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 Lead integrity [...] recommendations. Supporting reports can be found in [employer] media file. Micro: Susceptibility data from last 90 days. Collected Specimen Info Organism 11/06/24 Tissue from Other (specify site) Gram Negative Jesus 11/06/24 Swab from Other (specify site) Enterobacter cloacae complex Results Procedure Component Value Units Date/Time Fungal Culture, Routine [[id number]] Collected: 11/06/24 1128 Order Status: Completed Specimen: Swab from Other (specify site) Updated: 11/08/24 0919 Culture No Fungal Growth <1 Week Fungal Culture, Routine [[id number]] Collected: 11/06/24 1129 Order Status: Completed Specimen: Swab from Other (specify site) Updated: 11/08/24 0919 Culture No Fungal Growth <1 Week Fungal Culture, Tissue and ISIDRO [[id number]] Collected: 11/06/24 1134 Order Status: Completed Specimen: Tissue from Other (specify site) Updated: 11/08/24 0912 Culture Reading Mycological 4 Weeks No Fungal Growth <1 Week ISIDRO No fungal elements seen Blood Culture (Aerobic/Anaerobet Set) [[id number]] Collected: 11/06/24 0107 Order Status: Completed Specimen: Blood from AC, Left Updated: 11/08/24 0302 Culture No growth at day 2 Blood Culture (Aerobic/Anaerobet Set) [[id number]] Collected: 11/06/24 0107 Order Status: Completed Specimen: Blood from Hand, Right Updated: 11/08/24 0302 Culture No growth at day 2 Tissue Culture and Gram Stain [[id number]] (Abnormal) Collected: 11/06/241133 Order Status: Completed Specimen: [...] in pairs Routine Culture and Gram Stain [[id number]] (Abnormal) Collected: 11/06/241128 Order Status: Completed Specimen: Swab from Other (specify site) Updated: 11/07/24 1426 Culture Moderate Growth Enterobacter cloacae complex Comment: This isolate has been identified using the FDA Approved [employer] System The organism value for this result has been updated. These results have been appended to the previously preliminary verified report. Gram Stain Result No polymorphonuclear leukocytes seen No organisms seen AFB Culture, Non Respiratory Source and Acid Fast Stain [[id number]] Collected: 11/06/241133 Order Status: Completed Specimen: Tissue from Other (specify site) Updated: 11/07/24 1404 Acid Fast Stain No acid fast bacilli seen Routine Culture and Gram Stain [[id number]] Collected: 11/06/241127 Order Status: Completed Specimen: Swab from Other (specify site) Updated: 11/07/24 0855 Culture No growth at day 1 Gram Stain Result No organisms seen No polymorphonuclear leukocytes seen Anaerobic Culture [[id number]] Collected: 11/06/241127 Order Status: Sent Specimen: Swab from Other (specify site) Updated: 11/06/24 1220 Abscess Culture and Gram Stain [[id number]] Collected: 11/06/241127 Order Status: Canceled Specimen: Swab from Other (specify site) Updated: 11/06/24 1220 Anaerobic Culture [[id number]] Collected: 11/06/241128 Order Status: Sent Specimen: Swab from Other (specify site) Updated: 11/06/24 1219 Abscess Culture and Gram Stain [[id number]] Collected: 08/13/25 1129 Order Status: Canceled Specimen: Swab from Other (specify site) Updated: 11/06/24 1219 Anaerobic Culture [[id number]] Collected: 11/06/24 1134 Order Status: Sent Specimen: [...] OSH. On 11/06, pt went to the [facility] vascular surgery for left groin exploration [...] the time spent on the encounter was [id number] providing direct patient care, counseling for the patient/caregiver, and care coordination. [1] Current Facility-Administered Medications Medication Dose Route Frequency Provider Last Rate Last Admin acetaminophen (Tylenol) tablet 1,000 mg 1,000 mg Oral q6h [facility] Anthony Reyes MD 1,000 mg at 11/08/24 0520 aspirin chewable tablet 81 mg 81 mg Oral Daily Reid Daniels MD 81 mg at 11/08/24 0837 cefepime (Maxipime) 2 g in sodium chloride 0.9% 100 mL IVPB (vial adapter required) 2 g [id number] Reid Daniels MD 36.7 mL/hr at 11/08/24 0844 2 g at 11/08/24 0844 glucose (Glutose) 40 % oral gel 15-30 grams of glucose 15-30 grams of glucose Sublingual q15 min PRN Reid aDniels MD Or dextrose 10 % (D10W) bolus [...] OPAT at a medical/nursing facility (e.g, [facility], Swing Bed, Nursing facility) OPAT [...] IV Access: pending Patient Specific Outpatient Circumstances: [address] [place] [address] Contact information Bev Borja [phone] (home) Extended Emergency Contact Information Primary Emergency Contact: Patti Hill Relation: Sister Channeler needed? No Outpatient services (including home infusion, [...] via secure chat or staff messaging in [employer]. OPAT Modified program for IV antimicrobial therapy [...] most recent note for this information. Yola APODCAA RN 11/07/2024 * Care Plan - Brigitte [...] Note Bev Borja 64 y.o. male CSN: [id number] Admission: 11/05/2024 9:45 PM Primary Problem: Wound infection Jackhammer Splitter Operator reviewed chart and spoke with patient to complete this Initial Case Management Assessment. PCP: Asad Victor MD (Inactive) Dr. Palomo in [facility] [place] Emergency Contact: Extended Emergency Contact Information Primary Emergency Contact: Patti Hill Relation: Sister Channeler needed? No Insurance: Primary Visit Coverage Payer Plan Sponsor Code Group Number Group Name [facility] MEDICARE [facility] MEDICARE REPLACEMENT [id number] Primary Visit Coverage Subscriber Subscriber ID Subscriber Name Subscriber [facility] Subscriber Address [id number] BEV BORJA [id number] [place] [address] Secondary Visit Coverage Payer Plan Sponsor Code Group Number Group Name [facility] MEDICAID [facility] Secondary Visit Coverage Subscriber Subscriber ID Subscriber Name Subscriber [facility] Subscriber Address [id number] BEV BORJA [id number] [place] [address] Patient information: Primary Caregiver: Self Support System: Immediate family Daily Living Activities: Functional Status: Independent Living Arrangements: Alone Type of Residence: Private residence, Single Level [address] [place] [address] Current DME: Equipment Currently Used at Home: joy monterroso Income Information: Income Source: Disabled Income/Expense Information: Income meets expenses Current Resources Utilized: Food [place] Housing Circumstances-Z Codes: Housing Circumstances (select all [...] Dialysis Services: None Living Will/Advance Directive/Power of Sprayer Machine /Guardian: Have you reviewed your Advance Directive and is it valid for this stay?: No Advance Directive: Not applicable Information Provided on Healthcare Directives: No Pre-existing DNR/DNI Order: No Patient Requests Assistance: No Additional Comments: Patient is not medically ready for discharge. Patient uses [employer] for transportation and will need assistance with discharge transport. SW will continue to follow. Mariia Monterroso CALL OR CONTACT CENTRE COACH * Progress Notes - Melecio Echevarria DO - 11/07/2024 9:24 AM EDT Images from the original note were not included. [facility] Department of Surgery Division of Vascular Surgery Surgery Progress Note 11/07/24 Bev Borja Subjective Subjective: HPI 64yoM PMHx COPD, T2DM, HLD, HTN, RLS, CAD s/p PCI (on Xarelto) s/p pacemaker c/b left SANDIP pseudoaneurysm s/p thrombin injection 09/21/24, CLI s/p left femoral endarterectomy with EIA/MECHATRONICS TECHNOLOGIST stenting 10/17/24, who presented to [facility] 11/05/2024 with wound infection. 11/06/24: [...] MD Home meds Hold blood thinners Diabetes ([facility]) Overview Addendum 10/19/2021 10:41 AM by [...] completed 10/19 Pseudoaneurysm of left femoral artery ([facility]) COPD (chronic obstructive pulmonary disease) ([facility]) Overview Signed 10/18/2021 7:30 PM by Gallo Gallardo MD Not on home inhalers A-fib ([facility]) Overview Addendum 10/19/2021 10:39 AM by Giovanna Junior APRN Hold anticoagulation Metoprolol restarted BPH (benign prostatic hyperplasia) Overview Addendum 10/19/2021 10:41 AM by Giovanna Junior APRN Flomax restarted Subarachnoid hemorrhage ([facility]) Overview Addendum 10/20/2021 8:23 AM by Giovanna Junior APRN Left frontal, right occipital NSGY consulted - Repeat CTH showing slight worsening of tSAH - no need for further imaging, will continue to follow clinically 10/20: spoke with NSGY via phone and stated to hold ASA and Xarelto for 2 weeks Closed compression fracture of L3 lumbar vertebra, initial encounter ([facility]) Overview Signed 10/18/2021 7:35 PM [...] 09/21/24, CLI s/p left femoral endarterectomy with EIA/MECHATRONICS TECHNOLOGIST stenting 10/17/24, who presented to [facility] 11/05/2024 with wound infection. POD [...] the original note were not included. [facility] Department of Surgery Division of Vascular [...] nursing staff. I have notified senior resident/attending consular officer with any issues or concerns. Melecio [...] Agree with above assessment and evaluation from resident/CUSTOM WOOD STAIR BUILDER. * Consults - Oscar Appiah MD - [...] 1960 Age: 64 y.o. 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 Lead integrity [...] Procedure Component Value Units Date/Time Anaerobic Culture [[id number]] Collected: 11/06/241127 Order Status: Sent Specimen: Swab from Other (specify site) Updated: 11/06/24 122 Fungal Culture, Routine [[id number]] Collected: 11/06/241127 Order Status: Sent Specimen: Swab from Other (specify site) Updated: 11/06/24 1220 Routine Culture and Gram Stain [[id number]] Collected: 11/06/241127 Order Status: Sent Specimen: Swab from Other (specify site) Updated: 11/06/24 1220 Abscess Culture and Gram Stain [[id number]] Collected: 11/06/241127 Order Status: Canceled Specimen: Swab from Other (specify site) Updated: 11/06/24 1220 Anaerobic Culture [[id number]] Collected: 11/06/241128 Order Status: Sent Specimen: Swab from Other (specify site) Updated: 11/06/24 1219 Fungal Culture, Routine [[id number]] Collected: 11/06/241128 Order Status: Sent Specimen: Swab from Other (specify site) Updated: 11/06/241218 Routine Culture and Gram Stain [[id number]] Collected: 11/06/241128 Order Status: Sent Specimen: Swab from Other (specify site) Updated: 11/06/241218 Abscess Culture and Gram Stain [[id number]] Collected: 11/06/241128 Order Status: Canceled Specimen: Swab from Other (specify site) Updated: 11/06/241218 Anaerobic Culture [[id number]] Collected: 11/06/241133 Order Status: Sent Specimen: Tissue from Other (specify site) Updated: 11/06/241217 Tissue Culture and Gram Stain [[id number]] Collected: 11/06/241133 Order Status: Sent Specimen: Tissue from Other (specify site) Updated: 11/06/241217 AFB Culture, Non Respiratory Source and Acid Fast Stain [[id number]] Collected: 11/06/241133 Order Status: Sent Specimen: Tissue from Other (specify site) Updated: 11/06/241217 Fungal Culture, Tissue and ISIDRO [[id number]] Collected: 11/06/241133 Order Status: Sent Specimen: Tissue from Other (specify site) Updated: 11/06/241217 Blood Culture (Aerobic/Anaerobet Set) [[id number]] Collected: 11/06/24106 Order Status: Completed Specimen: Blood from AC, Left Updated: 11/06/24402 Culture Culture in lab Blood Culture (Aerobic/Anaerobet Set) [[id number]] Collected: 11/06/24106 Order Status: Completed Specimen: Blood [...] OSH. On 11/06, pt went to the [facility] vascular surgery for left groin exploration [...] this patient's care. GEN ID will follow. Dotyt Sethi MD PGY1 History, assessment, and plan [...] the time spent on the encounter was [id number] providing direct patient care, counseling for the patient/caregiver, and care coordination. [1] Past Medical History: Diagnosis Date Arthritis Old myocardial infarction History of myocardial infarction [2] Past Surgical History: Procedure Laterality Date ANKLE SURGERY Right CARDIAC PACEMAKER PLACEMENT CAROTID ENDARTERECTOMY N/A 2017 Endarterectomy Carotid Artery from [employer] CORONARY ANGIOPLASTY Left Coronary Angiography With Concomitant Left Heart Catheterization from [employer] CORONARY ARTERY BYPASS GRAFT N/A 2018 3V ELBOW SURGERY Right ENDARTERECTOMY Left 10/17/2024 common/SFA/[employer] thromboendarterectomy, EIA/MECHATRONICS TECHNOLOGIST stent HERNIA REPAIR KNEE ARTHROSCOPY Left VASCULAR SURGERY Left 09/21/2024 MECHATRONICS TECHNOLOGIST pseudoaneurym injection [3] Family History Problem Relation [...] mg 1,000 mg Oral q6h [facility] Anthony Reyes MD 1,000 mg at [...] Note Bev Borja 64 y.o. male CSN: [id number] Admission: 11/05/2024 9:45 PM Primary Problem: Wound infection Patient in OR today. SW will continue to follow. Mariia Maya Remington CALL OR CONTACT CENTRE COACH * Op Note - Jerry Holcomb MD - 11/06/2024 11:23 AM EDT Operative Note Date: 11/06/24 Location: [facility] OR Name: Bev Borja, : 1960, Diagnoses: Pre-op Diagnosis Surgical wound infection Post-op Diagnosis Surgical wound infection Procedure(s): Excisional debridement left groin (skin, subcutaneous tissue. Final measurements 10 x 7 x 6.5 cm) Excisional debridement left thigh (skin, subcutaneous tissue. Final measurements 8 x 2 x 3 cm) Attending Surgeon(s): * Nathaly Nowak - Primary Manager Quality Systems(s): * Luna Beckett MD - Resident - [...] the original note were not included. [facility] Department of Surgery Division of Vascular Surgery History & Physical Note Reason for Consult: Wound infection Requesting Service: Emergency Department Consult Date and Time: Consult to Vascular Surgery - Surg Red Consult performed by: Anthony Reyes MD Consult ordered by: JoseG Henderson DO Subjective History of Present Illness: Chief Complaint: Wound infection Bev Borja is a 64 y.o. male with PMHx significant for COPD, CAD s/p PCI (on Xarelto) s/p pacemaker c/b left SANDIP pseudoaneurysm s/p thrombin injection 09/21/24, chronic limb ischemia s/p leftfemoral endarterectomy with external iliac/common femoral artery stenting 10/17/24, T2DM, HLD, HTN, RLS who presented to the [facility] on 11/05/2024 with problems with [...] presented to [facility] with wound infection. He has [...] restarted once verified. Plan: - Admit to [facility] 2 - NPO, mIVF - Vanc/Zosyn, Blood Cx - Repeat labs and obtain A1C - Possible intervention to wash out wounds pending further review - Restarted PM medications, will need to restart AM meds (AC) when verified Dispo: Admit to [facility] Team 2 CODE STATUS: full code This Consult, Assessment, and Plan has been discussed with Dr. Nowak, Attending Physician Anthony Reyes MD [1] Past Medical History: Diagnosis Date Arthritis Old myocardial infarction History of myocardial infarction [2] No Known Allergies [3] Past Surgical History: Procedure Laterality Date ANKLE SURGERY Right CARDIAC PACEMAKER PLACEMENT CAROTID ENDARTERECTOMY N/A 2017 Endarterectomy Carotid Artery from [employer] CORONARY ANGIOPLASTY Left Coronary Angiography With Concomitant Left Heart Catheterization from [employer] CORONARY ARTERY BYPASS GRAFT N/A 2018 3V ELBOW SURGERY Right ENDARTERECTOMY Left 10/17/2024 common/SFA/Pro[employer]da thromboendarterectomy, EIA/MECHATRONICS TECHNOLOGIST stent HERNIA REPAIR KNEE ARTHROSCOPY Left VASCULAR SURGERY Left 09/21/2024 MECHATRONICS TECHNOLOGIST pseudoaneurym injection [4] Family History Problem Relation Name Age of Onset COPD Mother Diabetes Sister Anesthesia problems Neg Hx Malig Hyperthermia Neg Hx [5] Current Facility-Administered Medications Medication Dose Route Frequency Provider Last Rate Last Admin acetaminophen (Tylenol) tablet 1,000 mg 1,000 mg Oral q6h [facility] Anthony Reyes MD 1,000 mg at [...] to inpatient Once Acknowledged ANTHONY REYES 11/05/24 8308 Consult to Vascular Surgery - Surg Red Once Specialty: Vascular Surgery Provider: (Not yet assigned) Completed [facility] ED Course as of 11/06/24612Nov 05, 2024 2311 On initial evaluation, patient is hemodynamically stable. Patient has history of traumatic left lower extremity MECHATRONICS TECHNOLOGIST pseudoaneurysm s/p repair on 10/17 with Vascular [...] None Disposition Admit Admitting/Attending Physician: NATHALY NOWAK [[id number]] Provider Care Team: [facility] VASCULAR SURGERY 2 [168] Are they the primary team?: Yes [1] - [1] Past Medical History: Diagnosis Date Arthritis Old myocardial infarction History of myocardial infarction [2] Past Surgical History: Procedure Laterality Date ANKLE SURGERY Right CARDIAC PACEMAKER PLACEMENT CAROTID ENDARTERECTOMY N/A 2016 Endarterectomy Carotid Artery from [employer] CORONARY ANGIOPLASTY Left Coronary Angiography With Concomitant Left Heart Catheterization from [employer] CORONARY ARTERY BYPASS GRAFT N/A 2018 3V ELBOW SURGERY Right ENDARTERECTOMY Left 10/17/2024 common/SFA/Pro[employer] thromboendarterectomy, EIA/MECHATRONICS TECHNOLOGIST stent HERNIA REPAIR KNEE ARTHROSCOPY Left VASCULAR SURGERY Left 09/21/2024 MECHATRONICS TECHNOLOGIST pseudoaneurym injection [3] Family History Problem Relation [...] [facility] [address] [place] [address] 12/19/2024 8:00 AM EDT Appointment [facility] Vascular Lab [address] [place] [address] 12/19/2024 9:00 AM EDT Office Visit [facility] [address] [place] [address] Nathaly Nowak MD [address] [facility] [address] [place] [address] Pending Results Name Type Priority Associated Diagnoses [...] referral to NON [facility] Outpatient Referral Routine Injury [...] for testing. Comment 11/14/2024 11:57 AM EDT [facility] Hose Seamer ID Estefani Sheth 11/14/2024 11:57 AM EDT [facility] Device ID [id number] 11/14/2024 11:57 AM EDT [facility] Specimen Type POC Capillary 11/14/2024 11:57 AM EDT [facility] Blood Capillary blood specimen / Unknown 11/14/2024 11:56 AM EDT 11/14/2024 11:57 AM EDT Result [facility] Nathaly Nowak MD LAB POINT OF CARE TE ST DOCKED DEVICE UNSOLICITED RESULTS Final Result [facility] [address] [place] [address] * (ABNORMAL) POCT glucose meter (11/14/2024 8:05 [...] 11/14/2024 8:06 AM EDT [facility] Hose Seamer ID Estefani Sheth 11/14/2024 8:06 AM EDT [facility] Device ID [id number] 11/14/2024 8:06 AM EDT [facility] Specimen Type POC Capillary 11/14/2024 8:06 AM EDT [facility] Blood Capillary blood specimen / Unknown 11/14/2024 8:05 AM EDT 11/14/2024 8:06 AM EDT us Nathaly Nowak MD LAB POINT OF CARE TE ST DOCKED DEVICE UNSOLICITED RESULTS Final Result Performing Organization Address City/State/[facility] Co de Phone Number [facility] [address] [place] [address] * (ABNORMAL) POCT glucose meter (11/14/2024 3:53 [...] Comment 11/14/2024 3:55 AM EDT [facility] Hose Seamer ID Nelda Gerber 11/15/19 3:55 AM EDT [facility] Device ID [id number] 11/14/2024 3:55 AM EDT [facility] Specimen Type POC Capillary 11/14/2024 3:55 AM EDT [facility] Blood Capillary blood specimen / Unknown 11/14/2024 3:53 AM EDT 11/14/2024 3:55 AM EDT us Nathaly Nowak MD LAB POINT OF CARE TE ST DOCKED DEVICE UNSOLICITED RESULTS Final Result [facility] [address] [place] [address] * (ABNORMAL) POCT glucose meter (11/13/2024 8:55 PM EDT) Pathologist [facility] POCT Glucose 251(H) 74 - 99 mg/dL [...] for testing. Comment 11/13/2024 9:01 PM EDT [facility] Hose Seamer ID Nelda Gerber 11/14/19 9:01 PM EDT [facility] Device ID [id number] 11/13/2024 9:01 PM EDT [facility] Specimen Type POC Capillary 11/13/2024 9:01 PM EDT [facility] Blood Capillary blood specimen / Unknown 11/13/2024 8:55 PM EDT 11/13/2024 9:01 PM EDT Nathaly Nowak MD LAB POINT OF CARE TE ST DOCKED DEVICE UNSOLICITED RESULTS Final Result [facility] [address] [place] [address] * (ABNORMAL) POCT glucose meter (11/13/2024 5:16 PM EDT) [facility] POCT Glucose 149(H) 74 - 99 mg/dL [...] 5:17 PM EDT [facility] Hose Seamer ID Estefani Sheth 11/13/2024 5:17 PM EDT [facility]ALTH[facility] Device ID [id number] 11/13/2024 5:17 PM EDT [facility] Specimen Type POC Capillary 11/13/2024 5:17 PM EDT [facility] Blood Capillary blood specimen / Unknown 11/13/2024 5:16 PM EDT 11/13/2024 5:17 PM EDT Nathaly Nowak MD LAB POINT OF CARE TE ST DOCKED DEVICE UNSOLICITED RESULTS Final Result [facility] [address] [place] [address] * [place] NEGATIVE PRESSURE WOUND THERAPY DME [...] procedure: Tolerated well, no immediate complications Result [facility] Nathaly Nowak MD IN CLINIC/BEDSIDE ORDERABLES Fi [...] Comment 11/13/2024 12:00 PM EDT [facility]ALTHCARE LAB Hose Seamer ID Estefani Sheth 11/13/2024 12:00 PM EDT HEALTHCARE LAB Device ID [id number] 11/13/2024 12:00 PM EDT HEALTHCARE LAB Specimen Type POC Capillary 11/13/2024 12:00 PM EDT [facility] LAB Blood Capillary blood specimen / Unknown 11/13/2024 11:58 AM EDT 11/13/2024 12:00 PM EDT us Nathaly Nowak MD LAB POINT OF CARE TE ST DOCKED DEVICE UNSOLICITED RESULTS Final Result Performing Organization Address City/[facility] Co de Phone Number [facility] [address] [place] [address] * (ABNORMAL) POCT glucose meter (11/13/2024 8:23 [...] 11/13/2024 8:24 AM EDT HEALTHCARE LAB Hose Seamer ID Estefani Sheth 11/13/2024 8:24 AM EDT HEALTHCARE LAB Device ID [id number] 11/13/2024 8:24 AM EDT HEALTHCARE LAB Specimen Type POC Capillary 11/13/2024 8:24 AM EDT [facility] Blood Capillary blood specimen / Unknown 11/13/2024 8:23 AM EDT 11/13/2024 8:24 AM EDT us Nathaly Nowak MD LAB POINT OF CARE TE ST DOCKED DEVICE UNSOLICITED RESULTS Final Result Performing Organization Address City/[facility]/ZIP Co de Phone Number [facility]ARE [facility] [address] [place] [address] * (ABNORMAL) Phosphorus, Plasma (11/13/2024 6:37 AM EDT) Phosphorus, Plasma 1.7(L) 2.5 - 4.5 mg/dL 11/13/2024 7:16 AM EDT [facility] Blood Venous blood specimen / Unknown Venipuncture / Unknown 11/13/2024 6:37 AM EDT 11/13/2024 6:44 AM EDT Nathaly Nowak MD LAB BLOOD ORDERABLES Final Resu lt [facility] [address] [place] [address] * Magnesium, Plasma (11/13/2024 6:37 AM EDT) Pathologist [facility] Magnesium, Plasma 2.0 1.9 - 2.4 mg/dL 11/13/2024 7:16 AM EDT [facility] Blood Venous blood specimen / Unknown Venipuncture / Unknown 11/13/2024 6:37 AM EDT 11/13/2024 6:44 AM EDT Nathaly Nowak MD LAB BLOOD ORDERABLES Final Resu lt [facility] [address] [place] [address] * (ABNORMAL) CBC W/O Differential (11/13/2024 6:37 [...] Resu lt [facility] [address] [place] [address] * (ABNORMAL) Basic Metabolic Panel, Plasma (11/13/2024 [...] Resu lt [facility] [address] [place] [address] * (ABNORMAL) POCT glucose meter (11/12/2024 8:27 PM EDT) POCT Glucose 175(H) 74 - 99 mg/dL 11/12/2024 8:29 PM EDT [facility] Comment:Accuracy of a glucos e result [...] 11/12/2024 8:29 PM EDT [facility] Hose Seamer ID Nelda Gerber 11/13/19 8:29 PM EDT HEALTHCARE LAB Device ID [id number] 11/12/2024 8:29 PM EDT [facility]ALTH[facility]ARE LAB Specimen Type POC Capillary 11/12/2024 8:29 PM EDT [facility] Blood Capillary blood specimen / Unknown 11/12/2024 8:27 PM EDT 11/12/2024 8:29 PM EDT Nathaly Nowak MD LAB POINT OF CARE TE ST DOCKED DEVICE UNSOLICITED RESULTS Final Result Performing Organization Address City/[facility]/ZIP Co de Phone Number [facility] [address] [place] [address] * (ABNORMAL) POCT glucose meter (11/12/2024 5:08 PM EDT) [facility] POCT Glucose 157(H) 74 - 99 mg/dL [...] 11/12/2024 5:10 PM EDT [facility] Hose Seamer ID Wade Feliciano 5:10 PM EDT HEALTHCARE LAB Device ID [id number] 11/12/2024 5:10 PM EDT [facility]ALTH[facility]ARE LAB Specimen Type POC Capillary 11/12/2024 5:10 PM EDT [facility] Blood Capillary blood specimen / Unknown 11/12/2024 5:08 PM EDT 11/12/2024 5:10 PM EDT Nathaly Nowak MD LAB POINT OF CARE TE ST DOCKED DEVICE UNSOLICITED RESULTS Final Result Performing Organization Address City/[facility]/ZIP Co de Phone Number [facility] [address] [place] [address] * (ABNORMAL) POCT glucose meter (11/12/2024 12:36 PM EDT) [facility] POCT Glucose 224(H) 74 - 99 mg/dL [...] 11/12/2024 12:38 PM EDT HEALTHCARE LAB Hose Seamer ID Wade Feliciano 12:38 PM EDT HEALTH[facility]ARE LAB Device ID [id number] 11/12/2024 12:38 PM EDT [facility]ALTH[facility]ARE LAB Specimen Type POC Capillary 11/12/2024 12:38 PM EDT [facility] Blood Capillary blood specimen / Unknown 11/12/2024 12:36 PM EDT 11/12/2024 12:38 PM EDT Nathaly Nowak MD LAB POINT OF CARE TE ST DOCKED DEVICE UNSOLICITED RESULTS Final Result [facility] [address] [place] [address] * Clostridiodes (Clostridium) difficile PCR (11/12/2024 9:50 AM EDT) C difficile PCR toxin B gene DNA Result Not Detected Not Detected 11/12/2024 11:54 AM EDT [facility] Stool Rectum [...] Nathaly Nowak MD LAB MICROBIOLOGY - [facility]AL [facility] Final Result [facility] [address] [place] [address] * Comprehensive GI Panel by PCR (11/12/2024 [...] Narrative [facility] - 11/12/2024 2:47 PM [...] MICROBIOLOGY - GENERAL ORDE LAM Final Result [facility] [address] [place] [address] * C-reactive protein (11/12/2024 9:48 AM EDT) [...] ORDERABLES Final Resu lt Performing Organization Address City/[facility]/ZIP Co de Phone Number [facility] [address] [place] [address] * (ABNORMAL) POCT glucose meter (11/12/2024 8:20 [...] 11/12/2024 8:21 AM EDT [facility]ALTHCARE LAB Hose Seamer ID Wade Feliciano 8:21 AM EDT HEALTHCARE LAB Device ID [id number] 11/12/2024 8:21 AM EDT [facility]ALTH[facility]ARE LAB Specimen Type POC Capillary 11/12/2024 8:21 AM EDT [facility] Blood Capillary blood specimen / Unknown 11/12/2024 8:20 AM EDT 11/12/2024 8:21 AM EDT us Nathaly Nowak MD LAB POINT OF CARE TE ST DOCKED DEVICE UNSOLICITED RESULTS Final Result Performing Organization Address City/[facility]/ZIP Co de Phone Number [facility] [address] [place] [address] * (ABNORMAL) POCT glucose meter (11/11/2024 8:18 PM EDT) [facility] POCT Glucose 248(H) 74 - 99 mg/dL [...] 11/11/2024 8:20 PM EDT [facility]ALTH[facility]ARE LAB Hose Seamer ID Nelda Gerber 11/12/19 8:20 PM EDT HEALTH[facility]ARE LAB Device ID [id number] 11/11/2024 8:20 PM EDT [facility] LAB Specimen Type POC Capillary 11/11/2024 8:20 PM EDT [facility] Blood Capillary blood specimen / Unknown 11/11/2024 8:18 PM EDT 11/11/2024 8:20 PM EDT Nathaly Nowak MD LAB POINT OF CARE TE ST DOCKED DEVICE UNSOLICITED RESULTS Final Result Performing Organization Address City/State/[facility] Co de Phone Number [facility]ARE [facility] [address] [place] [address] * (ABNORMAL) POCT glucose meter (11/11/2024 5:59 PM EDT) [facility] POCT Glucose 147(H) 74 - 99 mg/dL [...] 11/11/2024 6:01 PM EDT [facility]ALTH[facility] LAB Hose Seamer ID Wade Feliciano 6:01 PM EDT HE[facility]ARE LAB Device ID [id number] 11/11/2024 6:01 PM EDT [facility] Specimen Type POC Capillary 11/11/2024 6:01 PM EDT [facility] Blood Capillary blood specimen / Unknown 11/11/2024 5:59 PM EDT 11/11/2024 6:01 PM EDT Nathaly Nowak MD LAB POINT OF CARE TE ST DOCKED DEVICE UNSOLICITED RESULTS Final Result Performing Organization Address [facility] de Phone Number [facility]ARE [facility] [address] [place] [address] * POCT glucose meter (11/11/2024 5:20 PM EDT) [facility] POCT Glucose 84 74 - 99 mg/dL [...] 11/11/2024 5:22 PM EDT [facility] Hose Seamer ID Wade Feliciano 5:22 PM EDT [facility] Device ID [id number] 11/11/2024 5:22 PM EDT [facility]ALTH[facility]ARE LAB Specimen Type POC Capillary 11/11/2024 5:22 PM EDT [facility] Blood Capillary blood specimen / Unknown 11/11/2024 5:20 PM EDT 11/11/2024 5:22 PM EDT Nathaly Nowak MD LAB POINT OF CARE TE ST DOCKED DEVICE UNSOLICITED RESULTS Final Result Performing Organization Address City/[facility] Co de Phone Number [facility] [address] [place] [address] * [place] NEGATIVE PRESSURE WOUND THERAPY DME [...] 11/11/2024 12:10 PM EDT [facility]ALTH[facility]ARE LAB Hose Seamer ID Braden Wade Tobias 12:10 PM EDT HEALTHCARE LAB Device ID [id number] 11/11/2024 12:10 PM EDT [facility]ALTH[facility]ARE LAB Specimen Type POC Capillary 11/11/2024 12:10 PM EDT [facility] Blood Capillary blood specimen / Unknown 11/11/2024 12:08 PM EDT 11/11/2024 12:10 PM EDT Nathaly Nowak MD LAB POINT OF CARE TE ST DOCKED DEVICE UNSOLICITED RESULTS Final Result [facility] [address] [place] [address] * (ABNORMAL) POCT glucose meter (11/11/2024 9:08 [...] 11/11/2024 9:09 AM EDT [facility]ALTH[facility]ARE LAB Hose Seamer ID Wade Feliciano 9:09 AM EDT HEALTHCARE LAB Device ID [id number] 11/11/2024 9:09 AM EDT [facility]ALTH[facility]ARE LAB Specimen Type POC Capillary 11/11/2024 9:09 AM EDT [facility] Blood Capillary blood specimen / Unknown 11/11/2024 9:08 AM EDT 11/11/2024 9:09 AM EDT Nathaly Nowak MD LAB POINT OF CARE TE ST DOCKED DEVICE UNSOLICITED RESULTS Final Result Performing Organization Address City/State/[facility] Co de Phone Number [facility] [address] [place] [address] * POCT glucose meter (11/11/2024 8:27 AM EDT) [facility] POCT Glucose 87 74 - 99 mg/dL [...] 11/11/2024 8:28 AM EDT HEALTHCARE LAB Hose Seamer ID Wade Feliciano 8:28 AM EDT HEALTHCARE LAB Device ID [id number] 11/11/2024 8:28 AM EDT [facility]ALTH[facility]ARE LAB Specimen Type POC Capillary 11/11/2024 8:28 AM EDT [facility] Blood Capillary blood specimen / Unknown 11/11/2024 8:27 AM EDT 11/11/2024 8:28 AM EDT us Nathaly Nowak MD LAB POINT OF CARE TE ST DOCKED DEVICE UNSOLICITED RESULTS Final Result [facility] [address] [place] [address] * (ABNORMAL) Basic Metabolic Panel, Plasma (11/11/2024 [...] lt [facility] [address] [place] [address] * (ABNORMAL) CBC W/O Differential (11/11/2024 12:56 [...] ORDERABLES Final Resu lt Performing Organization Address City/[facility]/ZIP Co de Phone Number [facility] [address] [place] [address] * (ABNORMAL) POCT glucose meter (11/10/2024 8:25 [...] for testing. Comment 11/10/2024 8:28 PM EDT [facility] Hose Seamer ID Nelda Gerber 11/11/19 8:28 PM EDT [facility] Device ID [id number] 11/10/2024 8:28 PM EDT [facility] Specimen Type POC Capillary 11/10/2024 8:28 PM EDT [facility] Blood Capillary blood specimen / Unknown 11/10/2024 8:25 PM EDT 11/10/2024 8:28 PM EDT Nathaly Nowak MD LAB POINT OF CARE TE ST DOCKED DEVICE UNSOLICITED RESULTS Final Result Performing Organization Address [facility] Co de Phone Number [facility] [address] [place] [address] * (ABNORMAL) POCT glucose meter (11/10/2024 4:45 [...] 11/10/2024 4:47 PM EDT HEALTHCARE LAB Hose Seamer ID Esperanza Parks 11/10/2024 4:47 PM EDT HEALTHCARE LAB Device ID [id number] 11/10/2024 4:47 PM EDT HEALTHCARE LAB Specimen Type POC Capillary 11/10/2024 4:47 PM EDT [facility] Blood Capillary blood specimen / Unknown 11/10/2024 4:45 PM EDT 11/10/2024 4:47 PM EDT Nathaly Nowak MD LAB POINT OF CARE TE ST DOCKED DEVICE UNSOLICITED RESULTS Final Result Performing Organization Address [facility] Co de Phone Number [facility] [address] [place] [address] * (ABNORMAL) POCT glucose meter (11/10/2024 12:13 PM EDT) [facility] POCT Glucose 131(H) 74 - 99 mg/dL [...] 11/10/2024 12:14 PM EDT HEALTHCARE LAB Hose Seamer ID Esperanza Parks 11/10/2024 12:14 PM EDT HEALTHCARE LAB Device ID [id number] 11/10/2024 12:14 PM EDT [facility]ALTH[facility]ARE LAB Specimen Type POC Capillary 11/10/2024 12:14 PM EDT [facility] Blood Capillary blood specimen / Unknown 11/10/2024 12:13 PM EDT 11/10/2024 12:14 PM EDT Nathaly Nowak MD LAB POINT OF CARE TE ST DOCKED DEVICE UNSOLICITED RESULTS Final Result Performing Organization Address [facility] Co de Phone Number [facility] [address] [place] [address] * Vancomycin, Peak, Plasma Please draw ~2 hours after 0800 dose of vancomycin finishes infusing. Consider obtaining level via peripheral stick. If peripheral stick is not feasible, please ensure that line is flushed well prior to drawing level. Than... (11/10/2024 10:56 AM EDT) [facility] Vancomycin, Peak, Plasma 23.8 20.0 - 40.0 [...] Res ult [facility] [address] [place] [address] * (ABNORMAL) POCT glucose meter (11/10/2024 8:03 AM EDT) [facility] POCT Glucose 174(H) 74 - 99 mg/dL [...] 11/10/2024 8:04 AM EDT HEALTHCARE LAB Hose Seamer ID Esperanza Parks 11/10/2024 8:04 AM EDT HEALTHCARE LAB Device ID [id number] 11/10/2024 8:04 AM EDT HEALTHCARE LAB Specimen Type POC Capillary 11/10/2024 8:04 AM EDT [facility] Blood Capillary blood specimen / Unknown 11/10/2024 8:03 AM EDT 11/10/2024 8:04 AM EDT us Nathaly Nowak MD LAB POINT OF CARE TE ST DOCKED DEVICE UNSOLICITED RESULTS Final Result Performing Organization Address [facility]/ZIP Co de Phone Number [facility] [address] [place] [address] * Vancomycin, Trough, Plasma Please draw ~30 [...] ORDERABLES Final Res ult Performing Organization Address [facility] Co de Phone Number [facility] [address] [place] [address] * (ABNORMAL) CBC and Differential (11/10/2024 12:31 [...] Resu lt [facility] [address] [place] [address] * (ABNORMAL) Comprehensive Metabolic Panel, Plasma (11/10/2024 [...] Resu lt [facility] [address] [place] [address] * (ABNORMAL) POCT glucose meter (11/09/2024 8:04 [...] 11/09/2024 8:06 PM EDT HEALTHCARE LAB Hose Seamer ID Maximiliano Hansen II 11/09/2024 8:06 PM EDT HEALTHCARE LAB Device ID [id number] 11/09/2024 8:06 PM EDT [facility]ALTH[facility]ARE LAB Specimen Type POC Capillary 11/09/2024 8:06 PM EDT [facility] Blood Capillary blood specimen / Unknown 11/09/2024 8:04 PM EDT 11/09/2024 8:06 PM EDT Nathaly Nowak MD LAB POINT OF CARE TE ST DOCKED DEVICE UNSOLICITED RESULTS Final Result Performing Organization Address City/State/[facility] Co de Phone Number [facility]ARE [facility] [address] [place] [address] * (ABNORMAL) POCT glucose meter (11/09/2024 4:36 PM EDT) [facility] POCT Glucose 166(H) 74 - 99 mg/dL [...] 11/09/2024 4:38 PM EDT HEALTHCARE LAB Hose Seamer ID Kristian Sosa 11/09/2024 4:38 PM EDT HEALTHCARE LAB Device ID [id number] 11/09/2024 4:38 PM EDT HEALTHCARE LAB Specimen Type POC Capillary 11/09/2024 4:38 PM EDT [facility] Blood Capillary blood specimen / Unknown 11/09/2024 4:36 PM EDT 11/09/2024 4:38 PM EDT Nathaly Nowak MD LAB POINT OF CARE TE ST DOCKED DEVICE UNSOLICITED RESULTS Final Result [facility] [address] [place] [address] * PICC SINGLE LUMEN ([employer] LINK) (11/09/2024 1:11 PM EDT) Narrative Estefani Barraza RN - 11/09/2024 1:11 PM EDT Estefani Barraza RN 11/09/2024 1:12 PM Insert PICC line Date/Time: 11/09/2024 1:11 PM Performed by: Estefani Barraza RN Authorized by: Nathaly Nowak MD Perry Protocol: Verbal consent obtained?: Yes Written consent [...] selection rationale: Left pacemaker Catheter Lot #: [id number] 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: Bard Catheter placed: Single lumen [...] POCT glucose meter (11/09/2024 11:50 AM EDT) [facility] POCT Glucose 127(H) 74 - 99 mg/dL [...] 11/09/2024 11:51 AM EDT [facility] Hose Seamer ID Kristian Sosa 11/09/2024 11:51 AM EDT [facility] Device ID [id number] 11/09/2024 11:51 AM EDT HEALTHCARE LAB Specimen Type POC Capillary 11/09/2024 11:51 AM EDT [facility]ALTH[facility]ARE LAB Blood Capillary blood specimen / Unknown 11/09/2024 11:50 AM EDT 11/09/2024 11:51 AM EDT Nathaly Nowak MD LAB POINT OF CARE TE ST DOCKED DEVICE UNSOLICITED RESULTS Final Result [facility] [address] [place] [address] * (ABNORMAL) POCT glucose meter (11/09/2024 8:14 AM EDT) [facility] POCT Glucose 153(H) 74 - 99 mg/dL [...] 11/09/2024 8:15 AM EDT [facility] Hose Seamer Kristian Greco 11/09/2024 8:15 AM EDT [facility] Device ID [id number] 11/09/2024 8:15 AM EDT [facility] Specimen Type POC Capillary 11/09/2024 8:15 AM EDT [facility] Blood Capillary blood specimen / Unknown 11/09/2024 8:14 AM EDT 11/09/2024 8:15 AM EDT us Nathaly Nowak MD LAB POINT OF CARE TE ST DOCKED DEVICE UNSOLICITED RESULTS Final Result [facility] [address] [place] [address] * (ABNORMAL) CBC and Differential (11/09/2024 4:15 [...] 4:15 AM EDT 11/09/2024 4:18 AM EDT [facility] 11/09/2024 4:26 AM EDT Therapeutic decision making should be based on absolute values, rather than percentages. us Nathaly Nowak MD LAB BLOOD ORDERABLES Final Resu lt [facility] [address] [place] [address] * (ABNORMAL) Comprehensive Metabolic Panel, Plasma (11/09/2024 [...] Resu lt [facility] [address] [place] [address] * (ABNORMAL) POCT glucose meter (11/09/2024 3:30 [...] 11/09/2024 3:31 AM EDT HEALTHCARE LAB Hose Seamer ID Maximiliano Hansen II 11/09/2024 3:31 AM EDT HEALTHCARE LAB Device ID [id number] 11/09/2024 3:31 AM EDT [facility] Specimen Type POC Capillary 11/09/2024 3:31 AM EDT [facility] Blood Capillary blood specimen / Unknown 11/09/2024 3:30 AM EDT 11/09/2024 3:31 AM EDT Nathaly Nowak MD LAB POINT OF CARE TE ST DOCKED DEVICE UNSOLICITED RESULTS Final Result Performing Organization Address City/[facility] Co de Phone Number [facility]ARE [facility] [address] [place] [address] * (ABNORMAL) POCT glucose meter (11/08/2024 7:21 [...] for testing. Comment 11/08/2024 7:22 PM EDT [facility] Hose Seamer ID Maximiliano Hansen II 11/08/2024 7:22 PM EDT HEALTHCARE LAB Device ID [id number] 11/08/2024 7:22 PM EDT [facility] Specimen Type POC Capillary 11/08/2024 7:22 PM EDT [facility] Blood Capillary blood specimen / Unknown 11/08/2024 7:21 PM EDT 11/08/2024 7:22 PM EDT Nathaly Nowak MD LAB POINT OF CARE TE ST DOCKED DEVICE UNSOLICITED RESULTS Final Result Performing Organization Address City/[facility] Co de Phone Number [facility] [address] [place] [address] * (ABNORMAL) POCT glucose meter (11/08/2024 5:12 PM EDT) Pathologist [facility] POCT Glucose 178(H) [...] 11/08/2024 5:14 PM EDT HEALTHCARE LAB Hose Seamer ID Estefani Sheth 11/08/2024 5:14 PM EDT HEALTHCARE LAB Device ID [id number] 11/08/2024 5:14 PM EDT [facility]ALTH[facility]ARE LAB Specimen Type POC Capillary 11/08/2024 5:14 PM EDT [facility] Blood Capillary blood specimen / Unknown 11/08/2024 5:12 PM EDT 11/08/2024 5:14 PM EDT Nathaly Nowak MD LAB POINT OF CARE TE ST DOCKED DEVICE UNSOLICITED RESULTS Final Result Performing Organization Address City/[facility] Co de Phone Number [facility] [address] [place] [address] * (ABNORMAL) POCT glucose meter (11/08/2024 12:03 [...] 11/08/2024 12:05 PM EDT HEALTHCARE LAB Hose Seamer ID Estefani Sheth 11/08/2024 12:05 PM EDT HEALTHCARE LAB Device ID [id number] 11/08/2024 12:05 PM EDT [facility]ALTH[facility]ARE LAB Specimen Type POC Capillary 11/08/2024 12:05 PM EDT [facility] Blood Capillary blood specimen / Unknown 11/08/2024 12:03 PM EDT 11/08/2024 12:05 PM EDT us Nathaly Nowak MD LAB POINT OF CARE TE ST DOCKED DEVICE UNSOLICITED RESULTS Final Result Performing Organization Address City/[facility]/ZIP Co de Phone Number [facility]ARE [facility] [address] [place] [address] * Vancomycin, Peak, Plasma Please draw ~2 hours after 11/08 0600 dose of vancomycin finishes infusing.Consider obtaining level via peripheral stick. If peripheral stick is not feasible, please ensure that line is flushed well prior to drawing level.... (11/08/2024 9:24 AM EDT) [facility] Vancomycin, Peak, Plasma 29.1 20.0 - 40.0 [...] Resu lt [facility] [address] [place] [address] * (ABNORMAL) POCT glucose meter (11/08/2024 8:00 AM EDT) [facility] POCT Glucose 150(H) 74 - 99 mg/dL [...] 11/08/2024 8:01 AM EDT HEALTHCARE LAB Hose Seamer ID Estefani Sheth 11/08/2024 8:01 AM EDT HEALTHCARE LAB Device ID [id number] 11/08/2024 8:01 AM EDT [facility]ALTH[facility] LAB Specimen Type POC Capillary 11/08/2024 8:01 AM EDT [facility] Blood Capillary blood specimen / Unknown 11/08/2024 8:00 AM EDT 11/08/2024 8:01 AM EDT us Nathaly Nowak MD LAB POINT OF CARE TE ST DOCKED DEVICE UNSOLICITED RESULTS Final Result [facility] [address] [place] [address] * (ABNORMAL) CBC and Differential (11/08/2024 4:39 [...] METHOD 11/08/2024 4:58 AM EDT [facility] Neutrophils % 69 % LAB HEMATOLOGY [...] 4:39 AM EDT 11/08/2024 4:[address] [facility] - 11/08/2024 4:58 AM EDT Therapeutic decision making should be based on absolute values, rather than percentages. us Nathaly Nowak MD LAB BLOOD ORDERABLES Final Resu lt [facility] [address] [place] [address] * (ABNORMAL) Comprehensive Metabolic Panel, Plasma (11/08/2024 [...] ORDERABLES Final Resu lt Performing Organization Address City/[facility]/ZIP Co de Phone Number [facility] [address] [place] [address] * Vancomycin, Trough, Plasma Please draw ~30 minutes prior to dose due at 0600 on 11/08. Please do NOThold dose awaiting level to return. Consider obtaining level via peripheral stick. If peripheral stick is not feasible, please ensure that line is... (11/08/2024 4:39 AM EDT) Pathologist [facility] Vancomycin, Trough, Plasma 18.7 10.0 - 20.0 [...] Resu lt [facility] [address] [place] [address] * (ABNORMAL) POCT glucose meter (11/07/2024 7:26 [...] 11/07/2024 7:28 PM EDT [facility]ALTHCARE LAB Hose Seamer ID Maximiliano Hansen II 11/07/2024 7:28 PM EDT HEALTHCARE LAB Device ID [id number] 11/07/2024 7:28 PM EDT [facility] Specimen Type POC Capillary 11/07/2024 7:28 PM EDT [facility] Blood Capillary blood specimen / Unknown 11/07/2024 7:26 PM EDT 11/07/2024 7:28 PM EDT Nathaly Nowak MD LAB POINT OF CARE TE ST DOCKED DEVICE UNSOLICITED RESULTS Final Result [facility] [address] [place] [address] * (ABNORMAL) POCT glucose meter (11/07/2024 5:51 PM EDT) [facility] POCT Glucose 183(H) 74 - 99 mg/dL [...] 11/07/2024 5:52 PM EDT HEALTHCARE LAB Hose Seamer ID Brigitte Castellon 11/07/2024 5:52 PM EDT HEALTHCARE LAB Device ID [id number] 11/07/2024 5:52 PM EDT [facility] Specimen Type POC Capillary 11/07/2024 5:52 PM EDT [facility] Blood Capillary blood specimen / Unknown 11/07/2024 5:51 PM EDT 11/07/2024 5:52 PM EDT Nathaly Nowak MD LAB POINT OF CARE TE ST DOCKED DEVICE UNSOLICITED RESULTS Final Result Performing Organization Address [facility] de Phone Number [facility]ARE [facility] [address] [place] [address] * (ABNORMAL) POCT glucose meter (11/07/2024 4:47 PM EDT) [facility] POCT Glucose 162(H) 74 - 99 mg/dL [...] Comment 11/07/2024 4:48 PM EDT [facility]ALTH[facility]ARE [facility] Hose Seamer ID Estefani Sheth 11/07/2024 4:48 PM EDT HEALTHCARE LAB Device ID [id number] 11/07/2024 4:48 PM EDT [facility] Specimen Type POC Capillary 11/07/2024 4:48 PM EDT [facility] Blood Capillary blood specimen / Unknown 11/07/2024 4:47 PM EDT 11/07/2024 4:48 PM EDT Nathaly Nowak MD LAB POINT OF CARE TE ST DOCKED DEVICE UNSOLICITED RESULTS Final Result Performing Organization Address [facility] Co de Phone Number [facility] [address] [place] [address] * (ABNORMAL) POCT glucose meter (11/07/2024 12:22 PM EDT) [facility] POCT Glucose 172(H) 74 - 99 mg/dL [...] Comment 11/07/2024 12:24 PM EDT [facility]ALTH[facility]ARE LAB Hose Seamer ID Estefani Sheth 11/07/2024 12:24 PM EDT HEALTHCARE LAB Device ID [id number] 11/07/2024 12:24 PM EDT HEALTHCARE LAB Specimen Type POC Capillary 11/07/2024 12:24 PM EDT [facility]ALTH[facility] Blood Capillary blood specimen / Unknown 11/07/2024 12:22 PM EDT 11/07/2024 12:24 PM EDT us Nathaly Nowak MD LAB POINT OF CARE TE ST DOCKED DEVICE UNSOLICITED RESULTS Final Result HE[facility]CARE LAB [address] [place] [address] * (ABNORMAL) CBC and Differential (11/07/2024 11:37 [...] Resu lt [facility] [address] [place] [address] * (ABNORMAL) Comprehensive Metabolic Panel, Plasma (11/07/2024 [...] Resu lt [facility] [address] [place] [address] * Type and Screen (11/07/2024 11:37 AM [...] ORDERABLES F inal Result BLOOD BANK [address] * (ABNORMAL) POCT glucose meter (11/07/2024 10:34 AM EDT) [facility] POCT Glucose 199(H) 74 - 99 mg/dL [...] 11/07/2024 10:36 AM EDT HEALTHCARE LAB Hose Seamer ID Joy Iraheta 11/07/2024 10:36 AM EDT HEALTHCARE LAB Device ID [id number] 11/07/2024 10:36 AM EDT [facility] Specimen Type POC Capillary 11/07/2024 10:36 AM EDT [facility] Blood Capillary blood specimen / Unknown 11/07/2024 10:34 AM EDT 11/07/2024 10:36 AM EDT Nathaly Nowak MD LAB POINT OF CARE TE ST DOCKED DEVICE UNSOLICITED RESULTS Final Result Performing Organization Address City/[facility] Co de Phone Number [facility] [address] [place] [address] * (ABNORMAL) POCT glucose meter (11/07/2024 9:34 AM EDT) [facility] POCT Glucose 208(H) 74 - 99 mg/dL [...] 11/07/2024 9:36 AM EDT [facility] Hose Seamer ID Brigitte Castellon 11/07/2024 9:36 AM EDT HEALTHCARE LAB Device ID [id number] 11/07/2024 9:36 AM EDT HEALTHCARE LAB Specimen Type POC Capillary 11/07/2024 9:36 AM EDT HEALTHCARE LAB Blood Capillary blood specimen / Unknown 11/07/2024 9:34 AM EDT 11/07/2024 9:36 AM EDT Nathaly Nowak MD LAB POINT OF CARE TE ST DOCKED DEVICE UNSOLICITED RESULTS Final Result Performing Organization Address City/[facility]/ZIP Co de Phone Number [facility] [address] [place] [address] * (ABNORMAL) POCT glucose meter (11/07/2024 8:20 AM EDT) [facility] POCT Glucose 137(H) 74 - 99 mg/dL [...] 11/07/2024 8:22 AM EDT HEALTHCARE LAB Hose Seamer ID Estefani Sheth 11/07/2024 8:22 AM EDT HEALTHCARE LAB Device ID [id number] 11/07/2024 8:22 AM EDT HEALTHCARE LAB Specimen Type POC Capillary 11/07/2024 8:22 AM EDT HEALTHCARE LAB Blood Capillary blood specimen / Unknown 11/07/2024 8:20 AM EDT 11/07/2024 8:22 AM EDT Nathaly Nowak MD LAB POINT OF CARE TE ST DOCKED DEVICE UNSOLICITED RESULTS Final Result Performing Organization Address City/[facility]/ZIP Co de Phone Number HEALTHCARE LAB [address] [place] [address] * (ABNORMAL) POCT glucose meter (11/07/2024 7:21 [...] 11/07/2024 7:22 AM EDT HEALTHCARE LAB Hose Seamer ID Brigitte Castellon 11/07/2024 7:22 AM EDT HEALTHCARE LAB Device ID [id number] 11/07/2024 7:22 AM EDT HEALTHCARE LAB Specimen Type POC Capillary 11/07/2024 7:22 AM EDT [facility] Blood Capillary blood specimen / Unknown 11/07/2024 7:21 AM EDT 11/07/2024 7:22 AM EDT Nathaly Nowak MD LAB POINT OF CARE TE ST DOCKED DEVICE UNSOLICITED RESULTS Final Result [facility] [address] [place] [address] * (ABNORMAL) POCT glucose meter (11/07/2024 6:25 AM EDT) [facility] POCT Glucose 144(H) 74 - 99 mg/dL [...] 11/07/2024 6:27 AM EDT HEALTHCARE LAB Hose Seamer ID Nelda Gerber 11/08/19 6:27 AM EDT HEALTHCARE LAB Device ID [id number] 11/07/2024 6:27 AM EDT [facility]ALTH[facility]ARE LAB Specimen Type POC Capillary 11/07/2024 6:27 AM EDT [facility] Blood Capillary blood specimen / Unknown 11/07/2024 6:25 AM EDT 11/07/2024 6:27 AM EDT Nathaly Nowak MD LAB POINT OF CARE TE ST DOCKED DEVICE UNSOLICITED RESULTS Final Result Performing Organization Address [facility] de Phone Number HEALTHCARE LAB [address] [place] [address] * (ABNORMAL) POCT glucose meter (11/07/2024 5:03 AM EDT) Pathologist [facility] POCT Glucose 139(H) 74 - 99 mg/dL [...] Comment 11/07/2024 5:08 AM EDT HEALTHCARE LAB Hose Seamer ID Nelda Gerber 11/08/19 5:08 AM EDT HEALTHCARE LAB Device ID [id number] 11/07/2024 5:08 AM EDT [facility] Specimen Type POC Capillary 11/07/2024 5:08 AM EDT [facility] Blood Capillary blood specimen / Unknown 11/07/2024 5:03 AM EDT 11/07/2024 5:08 AM EDT Nathaly Nowak MD LAB POINT OF CARE TE ST DOCKED DEVICE UNSOLICITED RESULTS Final Result Performing Organization Address City/[facility] Co de Phone Number [facility] [address] [place] [address] * (ABNORMAL) POCT glucose meter (11/07/2024 4:16 AM EDT) Pathologist [facility] POCT Glucose 142(H) 74 - 99 mg/dL [...] 11/07/2024 4:18 AM EDT HEALTHCARE LAB Hose Seamer ID Nelda Gerber 11/08/19 4:18 AM EDT HEALTHCARE LAB Device ID [id number] 11/07/2024 4:18 AM EDT HEALTHCARE LAB Specimen Type POC Capillary 11/07/2024 4:18 AM EDT [facility]ALTH[facility] LAB Blood Capillary blood specimen / Unknown 11/07/2024 4:16 AM EDT 11/07/2024 4:18 AM EDT Nathaly Nowak MD LAB POINT OF CARE TE ST DOCKED DEVICE UNSOLICITED RESULTS Final Result Performing Organization Address City/[facility] Co de Phone Number HEALTHCARE LAB [address] [place] [address] * (ABNORMAL) POCT glucose meter (11/07/2024 3:21 AM EDT) [facility] Signature POCT Glucose 141(H) 74 - 99 [...] 11/07/2024 3:23 AM EDT HEALTHCARE LAB Hose Seamer ID Nelda Gerber 11/08/19 3:23 AM EDT HEALTHCARE LAB Device ID [id number] 11/07/2024 3:23 AM EDT [facility]ALTH[facility]ARE LAB Specimen Type POC Capillary 11/07/2024 3:23 AM EDT [facility] Blood Capillary blood specimen / Unknown 11/07/2024 3:21 AM EDT 11/07/2024 3:23 AM EDT us Nathaly Nowak MD LAB POINT OF CARE TE ST DOCKED DEVICE UNSOLICITED RESULTS Final Result [facility] [address] [place] [address] * (ABNORMAL) POCT glucose meter (11/07/2024 2:10 AM EDT) [facility] POCT Glucose 146(H) 74 - 99 mg/dL [...] 11/07/2024 2:12 AM EDT HEALTHCARE LAB Hose Seamer ID Nelda Gerber 11/08/19 2:12 AM EDT [facility] LAB Device ID [id number] 11/07/2024 2:12 AM EDT HEALTHCARE LAB Specimen Type POC Capillary 11/07/2024 2:12 AM EDT [facility] Blood Capillary blood specimen / Unknown 11/07/2024 2:10 AM EDT 11/07/2024 2:12 AM EDT Nathaly Nowak MD LAB POINT OF CARE TE ST DOCKED DEVICE UNSOLICITED RESULTS Final Result Performing Organization Address [facility] Co de Phone Number [facility] [address] [place] [address] * (ABNORMAL) POCT glucose meter (11/07/2024 1:08 AM EDT) [facility] POCT Glucose 135(H) 74 - 99 mg/dL [...] 11/07/2024 1:10 AM EDT [facility] Hose Seamer ID Nelda Gerber 11/08/19 1:10 AM EDT [facility] Device ID [id number] 11/07/2024 1:10 AM EDT HEALTHCARE LAB Specimen Type POC Capillary 11/07/2024 1:10 AM EDT [facility]ALTH[facility] LAB Blood Capillary blood specimen / Unknown 11/07/2024 1:08 AM EDT 11/07/2024 1:10 AM EDT Nathaly Nowak MD LAB POINT OF CARE TE ST DOCKED DEVICE UNSOLICITED RESULTS Final Result Performing Organization Address [facility] Co de Phone Number [facility]ARE LAB [address] [place] [address] * (ABNORMAL) POCT glucose meter (11/07/2024 12:10 [...] 11/07/2024 12:13 AM EDT HEALTHCARE LAB Hose Seamer ID Nelda Gerber 11/08/19 12:13 AM EDT HEALTHCARE LAB Device ID [id number] 11/07/2024 12:13 AM EDT HEALTHCARE LAB Specimen Type POC Capillary 11/07/2024 12:13 AM EDT [facility]ALTH[facility] LAB Blood Capillary blood specimen / Unknown 11/07/2024 12:10 AM EDT 11/07/2024 12:13 AM EDT us Nathaly Nowak MD LAB POINT OF CARE TE ST DOCKED DEVICE UNSOLICITED RESULTS Final Result Performing Organization Address City/[facility] de Phone Number [facility] [address] [place] [address] * (ABNORMAL) POCT glucose meter (11/06/2024 11:14 [...] 11/06/2024 11:16 PM EDT [facility] Hose Seamer ID Nelda Gerber 11/07/19 11:16 PM EDT [facility] Device ID [id number] 11/06/2024 11:16 PM EDT [facility] Specimen Type POC Capillary 11/06/2024 11:16 PM EDT [facility]ALTH[facility] LAB Blood Capillary blood specimen / Unknown 11/06/2024 11:14 PM EDT 11/06/2024 11:16 PM EDT Nathaly Nowak MD LAB POINT OF CARE TE ST DOCKED DEVICE UNSOLICITED RESULTS Final Result [facility] [address] [place] [address] * (ABNORMAL) POCT glucose meter (11/06/2024 10:07 PM EDT) [facility] POCT Glucose 140(H) 74 - 99 mg/dL [...] 11/06/2024 10:09 PM EDT [facility] Hose Seamer ID Nelda Gerber 11/07/19 10:09 PM EDT [facility] Device ID [id number] 11/06/2024 10:09 PM EDT [facility] Specimen Type POC Capillary 11/06/2024 10:09 PM EDT [facility] Blood Capillary blood specimen / Unknown 11/06/2024 10:07 PM EDT 11/06/2024 10:09 PM EDT Nathaly Nowak MD LAB POINT OF CARE TE ST DOCKED DEVICE UNSOLICITED RESULTS Final Result Performing Organization Address [facility] de Phone Number [facility] [address] [place] [address] * (ABNORMAL) POCT glucose meter (11/06/2024 8:22 PM EDT) Pathologist [facility] POCT Glucose 256(H) 74 - 99 mg/dL [...] Comment 11/06/2024 8:25 PM EDT HEALTHCARE LAB Hose Seamer ID Nelda Gerber 11/07/19 8:25 PM EDT [facility] Device ID [id number] 11/06/2024 8:25 PM EDT [facility] Specimen Type POC Capillary 11/06/2024 8:25 PM EDT [facility] Blood Capillary blood specimen / Unknown 11/06/2024 8:22 PM EDT 11/06/2024 8:25 PM EDT Nathaly Nowak MD LAB POINT OF CARE TE ST DOCKED DEVICE UNSOLICITED RESULTS Final Result Performing Organization Address City/[facility] de Phone Number [facility] [address] [place] [address] * (ABNORMAL) POCT glucose meter (11/06/2024 7:31 PM EDT) [facility] POCT Glucose 359(H) 74 - 99 mg/dL [...] 11/06/2024 7:32 PM EDT [facility] Hose Seamer ID Nelda Gerber 11/07/19 7:32 PM EDT [facility] Device ID [id number] 11/06/2024 7:32 PM EDT [facility] Specimen Type POC Capillary 11/06/2024 7:32 PM EDT [facility]ALTH[facility]ARE LAB Blood Capillary blood specimen / Unknown 11/06/2024 7:31 PM EDT 11/06/2024 7:32 PM EDT Nathaly Nowak MD LAB POINT OF CARE TE ST DOCKED DEVICE UNSOLICITED RESULTS Final Result Performing Organization Address [facility] Co de Phone Number [facility]ARE LAB [address] [place] [address] * (ABNORMAL) POCT glucose meter (11/06/2024 6:15 [...] 11/06/2024 6:17 PM EDT [facility] Hose Seamer ID Estefani Sheth 11/06/2024 6:17 PM EDT HEALTHCARE LAB Device ID [id number] 11/06/2024 6:17 PM EDT [facility] Specimen Type POC Capillary 11/06/2024 6:17 PM EDT [facility]ALTH[facility] LAB Blood Capillary blood specimen / Unknown 11/06/2024 6:15 PM EDT 11/06/2024 6:17 PM EDT Nathaly Nowak MD LAB POINT OF CARE TE ST DOCKED DEVICE UNSOLICITED RESULTS Final Result Performing Organization Address City/[facility] Co de Phone Number [facility] [address] [place] [address] * (ABNORMAL) POCT glucose meter (11/06/2024 4:57 PM EDT) [facility] POCT Glucose 417(H) 74 - 99 mg/dL [...] 11/06/2024 4:58 PM EDT HEALTHCARE LAB Hose Seamer ID Estefani Sheth 11/06/2024 4:58 PM EDT HEALTHCARE LAB Device ID [id number] 11/06/2024 4:58 PM EDT [facility] Specimen Type POC Capillary 11/06/2024 4:58 PM EDT [facility] Blood Capillary blood specimen / Unknown 11/06/2024 4:57 PM EDT 11/06/2024 4:58 PM EDT Nathaly Nowak MD LAB POINT OF CARE TE ST DOCKED DEVICE UNSOLICITED RESULTS Final Result [facility] [address] [place] [address] * (ABNORMAL) POCT glucose meter (11/06/2024 2:08 PM EDT) [facility] POCT Glucose 253(H) 74 - 99 mg/dL [...] 11/06/2024 2:09 PM EDT [facility] Hose Seamer ID Brigitte Castellon 11/06/2024 2:09 PM EDT [facility] Device ID [id number] 11/06/2024 2:09 PM EDT HEALTHCARE LAB Specimen Type POC Capillary 11/06/2024 2:09 PM EDT [facility]ALTH[facility] LAB Blood Capillary blood specimen / Unknown 11/06/2024 2:08 PM EDT 11/06/2024 2:09 PM EDT Nathaly Nowak MD LAB POINT OF CARE TE ST DOCKED DEVICE UNSOLICITED RESULTS Final Result Performing Organization Address City/[facility]/ZIP Co de Phone Number [facility]ALTHCARE LAB [address] [place] [address] * (ABNORMAL) POCT glucose meter (11/06/2024 12:27 PM EDT) [facility] POCT Glucose 228(H) 74 - 99 mg/dL [...] Comment 11/06/2024 12:28 PM EDT HEALTHCARE LAB Hose Seamer ID Jacinta Galloway 11/06/2024 12:28 PM EDT HEALTHCARE LAB Device ID [id number] 11/06/2024 12:28 PM EDT [facility]ALTH[facility]ARE LAB Specimen Type POC Capillary 11/06/2024 12:28 PM EDT [facility] Blood Capillary blood specimen / Unknown 11/06/2024 12:27 PM EDT 11/06/2024 12:28 PM EDT Nathaly Nowak MD LAB POINT OF CARE TE ST DOCKED DEVICE UNSOLICITED RESULTS Final Result Performing Organization Address City/[facility]/ZIP Co de Phone Number [facility]ALTHCARE LAB [address] [place] [id number] * (ABNORMAL) Fungal Culture, Tissue and ISIDRO (11/06/2024 11:34 AM EDT) Pathologist [facility] Culture Reading Mycological 4 Weeks Rare [place] Sana parapsilosis (A) 12/05/2024 8:36 AM EDT [facility] Comment: This isolate has been identified using the FDA Approved MALDI s0cketyper CA System The organism value for this result has been updated. These results have been appended to the previously preliminary verified report. Edited result: Previously reported as Yeast on 11/11/2024 at 1317 EDT. ISIDRO No fungal elements seen 12/05/2024 8:36 AM EDT [facility] Tissue [...] Nathaly Nowak MD LAB MICROBIOLOGY - GENERAL [facility] Final Result [facility] [address] [place] [address] * (ABNORMAL) Tissue Culture and Gram Stain (11/06/2024 11:34 AM EDT) Culture Moderate Growth 7:35 AM EDT [facility] Culture 2+ Enterobacter cloacae complex(A) ANGÉLICA 11/15/2024 7:35 AM EDT [facility] Comment: This isolate has been identified using the FDA Approved MALDI s0cketyper CA System The organism value for this result has been updated. These results have been appended to the previously preliminary verified report. Edited result: Previously reported as Gram Negative Jesus on 11/07/2024 at 1434 EDT. Culture 2+ Streptococcus mitis/oralis group(A) ANGÉLICA 11/15/2024 7:35 AM EDT [facility] Comment: This isolate has been identified using the FDA Approved Drug Response Dxer CA System The organism value for this result has been updated. These results have been appended to the previously preliminary verified report. Culture 2+ Pasteurella stomatis(A) ANGÉLICA 11/15/2024 7:35 AM EDT [facility] Comment: This result was determined by MALDI tof mass spectrometry using the [employer] database and is for research use only. [...] GENERAL ORDAna FRITZ Edited Result - Final [facility] [address] [place] [address] * (ABNORMAL) Anaerobic Culture (11/06/2024 11:34 AM EDT) Culture No anaerobes isolated 11/14/2024 1:25 PM EDT [facility] Culture Staphylococcus pseudintermedius( A) 11/14/2024 1:25 PM EDT [facility] Comment: This result was determined by MALDI tof mass spectrometry using the [employer] database and is for research use only. [...] - Final [facility] [address] [place] [address] * (ABNORMAL) Routine Culture and Gram Stain (11/06/2024 11:29 AM EDT) Culture Moderate Growth 5:29 PM EDT [facility] Culture Enterobacter cloacae complex(A) 11/08/2024 5:29 PM EDT [facility] Comment: This isolate has been identified using the FDA Approved Drug Response Dxer CA System For susceptibility results refer to: - [id number] The organism value for this result has [...] Nowak MD LAB MICROBIOLOGY - [facility]AL [facility] Final Result Performing Organization Address [facility] de Phone Number [facility] [address] [place] [address] * Fungal Culture, Routine (11/06/2024 11:29 AM EDT) Culture No Fungal Growth at 1 Week 11/13/2024 8:29 AM EDT [facility] Swab Topography unknown / Unknown 11/06/2024 11:29 AM EDT 11/06/2024 12:19 PM EDT Comment:Pre-op diagnosis: Surgical wound infection [T81.49XA] Nathaly Nowak MD LAB MICROBIOLOGY - GENERAL ORDE RABONEIDA Final Result Performing Organization Address City/[facility]/ZIP Co de Phone Number [facility] [address] [place] [address] * (ABNORMAL) Anaerobic Culture (11/06/2024 11:29 AM EDT) Culture No anaerobes isolated 11/14/2024 1:25 PM EDT [facility] Culture Streptococcus mitis/oralis group(A) 11/14/2024 1:25 PM EDT [facility] Comment: This result was determined by MALDI tof mass spectrometry using the [employer] database and is for research use only. The organism value for this result has been updated. These results have been appended to the previously preliminary verified report. This is a corrected result. Previous organism was Mixed skin clifton on 11/10/2024 at 0718 EDT. Culture Staphylococcus pseudintermedius( A) 11/14/2024 1:25 PM EDT [facility] Comment: This isolate has been identified using the FDA Approved MALDI Edicyer CA System This is an appended report. [...] GENERAL ORDAna FRITZ Edited Result - Final [facility] [address] [place] [address] * Routine Culture and Gram Stain (11/06/2024 [...] ATIYA FRITZ Final Result Performing Organization Address City/[facility] [place] [address] * Fungal Culture, Routine (11/06/2024 11:28 AM EDT) Culture No Fungal Growth at 1 Week 11/13/2024 8:29 AM EDT [facility] Swab Topography unknown / Unknown 11/06/2024 11:28 AM EDT 11/06/2024 12:20 PM EDT Comment:Pre-op diagnosis: Surgical wound infection [T81.49XA] Result Ghazala Nowak MD LAB MICROBIOLOGY - GENERAL ATIYA FRITZ Final Result [facility] [address] [place] [address] * Anaerobic Culture (11/06/2024 11:28 AM EDT) Culture No growth at day 4 11/13/2024 12:53 PM EDT [facility] Swab Topography unknown / Unknown 11/06/2024 11:28 AM EDT 11/06/2024 12:20 PM EDT Comment:Pre-op diagnosis: Surgical wound infection [T81.49XA] us Nathaly Nowak MD LAB MICROBIOLOGY - GENERAL ORD LAM Final Result Performing Organization Address City/[facility]/ZIP Co de Phone Number [facility] [address] [place] [address] * (ABNORMAL) POCT glucose meter (11/06/2024 10:16 [...] for testing. Comment 11/06/2024 10:18 AM EDT [facility] Hose Seamer ID Lacy Griffin 11/07/19 25 10:18 AM EDT [facility] Device ID [id number] 11/06/2024 10:18 AM EDT [facility] Specimen Type POC Capillary 11/06/2024 10:18 AM EDT [facility] Blood Capillary blood specimen / Unknown 11/06/2024 10:16 AM EDT 11/06/2024 10:18 AM EDT Nathaly Nowak MD LAB POINT OF CARE TE ST DOCKED DEVICE UNSOLICITED RESULTS Final Result Performing Organization Address City/[facility]/ZIP Co de Phone Number [facility]ALTHCARE LAB [address] [place] [address] * (ABNORMAL) POCT glucose meter (11/06/2024 5:58 [...] 11/06/2024 6:01 AM EDT [facility] Hose Seamer ID Raj Laird 11/07/19 6:01 AM EDT HEALTHCARE LAB Device ID [id number] 11/06/2024 6:01 AM EDT [facility]ALTH[facility]ARE LAB Specimen Type POC Capillary 11/06/2024 6:01 AM EDT [facility] Blood Capillary blood specimen / Unknown 11/06/2024 5:58 AM EDT 11/06/2024 6:01 AM EDT Nathaly Nowak MD LAB POINT OF CARE TE ST DOCKED DEVICE UNSOLICITED RESULTS Final Result Performing Organization Address City/[facility] Co de Phone Number [facility] [address] [place] [address] * (ABNORMAL) POCT glucose meter (11/06/2024 5:36 AM EDT) [facility] POCT Glucose 202(H) 74 - 99 mg/dL [...] 11/06/2024 5:38 AM EDT HEALTHCARE LAB Hose Seamer ID Shahid Sanches 11/06/2024 5:38 AM EDT HEALTHCARE LAB Device ID [id number] 11/06/2024 5:38 AM EDT [facility] Specimen Type POC Capillary 11/06/2024 5:38 AM EDT [facility] Blood Capillary blood specimen / Unknown 11/06/2024 5:36 AM EDT 11/06/2024 5:38 AM EDT Nathaly Nowak MD LAB POINT OF CARE TE ST DOCKED DEVICE UNSOLICITED RESULTS Final Result Performing Organization Address City/[facility]/ZIP Co de Phone Number [facility] [address] [place] [address] * (ABNORMAL) Hemoglobin A1c (11/06/2024 1:07 AM [...] Adults <6.0% Children and Adolescents <7.5% Source: [place] [employer]. Standards of medical care in diabetes,2017. Diabetes Care.2017:40 (suppl 1):S1-S135. us Nathaly Nowak MD LAB BLOOD ORDERABLES Final Resu lt [facility] [address] [place] [address] * Blood Culture (Aerobic/Anaerobet Set) (11/06/2024 1:07 AM EDT) Culture No growth at day 5 11/11/2024 2:49 AM EDT [facility] Blood Structure of right hand / Unknown Venipuncture / Unknown 11/06/2024 1:07 AM EDT 11/06/2024 2:36 AM EDT us Nathaly Nowak MD LAB MICROBIOLOGY - GENERAL ORDE RABLES Final Result [facility] [address] [place] [address] * Blood Culture (Aerobic/Anaerobet Set) (11/06/2024 1:07 AM EDT) Culture No growth at day 5 11/11/2024 3:01 AM EDT [facility] Blood Structure of antecubital vein / Unknown Venipuncture / Unknown 11/06/2024 1:07 AM EDT 11/06/2024 2:36 AM EDT us Nathaly Nowak MD LAB MICROBIOLOGY - GENERAL ATIYA FRITZ Final Result [facility] [address] [place] [address] * (ABNORMAL) Basic metabolic panel (11/06/2024 1:07 AM EDT) Pathologist [facility] Glucose, Plasma 207(H) 74 - 99 mg/dL [...] Resu lt Performing Organization Address [facility] Co de Phone Number [facility] [address] [place] [address] * Phosphorus (11/06/2024 1:07 AM EDT) Phosphorus, Plasma 3.2 2.5 - 4.5 mg/dL 11/06/2024 1:41 AM EDT [facility] Blood Venous blood specimen / Unknown Venipuncture / Unknown 11/06/2024 1:07 AM EDT 11/06/2024 1:12 AM EDT us Nathaly Nowak MD LAB BLOOD ORDERABLES Final Resu lt Performing Organization Address [facility] de Phone Number [facility] [address] [place] [address] * Magnesium (11/06/2024 1:07 AM EDT) Magnesium, Plasma 2.2 1.9 - 2.4 mg/dL 11/06/2024 1:41 AM EDT [facility] Blood Venous blood specimen / Unknown Venipuncture / Unknown 11/06/2024 1:07 AM EDT 11/06/2024 1:12 AM EDT Nathaly Nowak MD LAB BLOOD ORDERABLES Final Resu lt Performing Organization Address [facility] Co de Phone Number [facility] [address] [place] [address] * (ABNORMAL) CBC (11/06/2024 1:07 AM EDT) [...] lt [facility] [address] [place] [address] * Gold Top (11/06/2024 12:58 AM EDT) Extra Hold for add-ons 11/06/2024 3:21 AM EDT [facility] Comment:Auto resulted. Blood Venous blood specimen / Unknown 11/06/2024 12:58 AM EDT 11/06/2024 1:13 AM EDT us Nathaly Nowak MD LAB BLOOD ORDERABLES Final Resu lt Performing Organization Address City/[facility]/ZIP Co de Phone Number [facility] [address] [place] [address] * Gold Top (11/06/2024 12:58 AM EDT) Extra Hold for add-ons 11/06/2024 3:21 AM EDT [facility] Comment:Auto resulted. Blood Venous blood specimen / Unknown 11/06/2024 12:58 AM EDT 11/06/2024 1:13 AM EDT us Nathaly Nowak MD LAB BLOOD ORDERABLES Final Resu lt Performing Organization Address [facility] [place] Phone [place] [facility] [address] [place] [address] * Light Green Top (11/06/2024 12:58 AM EDT) Extra Hold for add-ons 11/06/2024 3:21 AM EDT [facility] Comment:Auto resulted. Blood Venous blood specimen / Unknown 11/06/2024 12:58 AM EDT 11/06/2024 1:13 AM EDT us Nathaly Nowak MD LAB BLOOD ORDERABLES Final Resu lt Performing Organization Address [facility] Co de Phone Number [facility] [address] [place] [address] * Light Blue Top (11/06/2024 12:58 AM EDT) Extra Hold for add-ons 11/06/2024 3:21 AM EDT [facility] Comment:Auto resulted. Blood Venous blood specimen / Unknown 11/06/2024 12:58 AM EDT 11/06/2024 1:13 AM EDT us Nathaly Nowak MD LAB BLOOD ORDERABLES Final Resu lt Performing Organization Address City/[facility]/ZIP Co de Phone Number [facility] [address] [place] [address] * Light Blue Top (11/06/2024 12:58 AM EDT) [facility] Extra Hold for add-ons 11/06/2024 3:21 AM EDT [facility] Comment:Auto resulted. Blood Venous blood specimen / Unknown 11/06/2024 12:58 AM EDT 11/06/2024 1:13 AM EDT Nathaly Nowak MD LAB BLOOD ORDERABLES Final Resu lt [facility] [address] [place] [address] * (ABNORMAL) POCT glucose meter (11/06/2024 12:45 AM EDT) [facility] POCT Glucose 204(H) 74 - 99 mg/dL [...] 11/06/2024 12:48 AM EDT [facility] Hose Seamer ID Raj Laird 11/07/19 25 12:48 AM EDT [facility] Device ID [id number] 11/06/2024 12:48 AM EDT [facility] Specimen Type POC Capillary 11/06/2024 12:48 AM EDT [facility] Blood Capillary blood specimen / Unknown 11/06/2024 12:45 AM EDT 11/06/2024 12:48 AM EDT us Nathaly Nowak MD LAB POINT OF CARE TE ST DOCKED DEVICE UNSOLICITED RESULTS Final Result Performing Organization Address City/[facility]/ZIP Co de Phone Number [facility] [address] [place] [address] documented in this encounter Visit Diagnoses Diagnosis [...] needed, Starting on Mon11/06/24 at 0753, Until [facility] 11/14/24 at 1804, Routine, On Unit - Preprocedure, line care sodium chloride 0.9 % flush 10 mL 10 mL, Intravenous, Every 12 hours, First dose on [facility] 11/09/24 at 1515, Until Discontinued, [...] Routine 0538 (Not Given - Provider: Jonathan aVle RN - Reason: Patient/family refused)1356 (Given - [...] Devora Bo) 0856 (Given - Provider: Yazmin Bahtt, CHRISTIAN) cefepime (Maxipime) 2 g in sodium [...] Devora Bo) 0258 (Given - Provider: Jonathan Vlae, CHRISTIAN)1643 (Given - Provider: Devora Bo) 0303 [...] Devora Bo) 1753 (Given - Provider: Devora oB) 1700 (Canceled Entry - Provider: Automatic Discharge [...] documented as of this encounter Care Teams Flooring 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
--- OUTSIDE RECORDS SUMMARY | 2024-11-06 10:47 | XMS_ITS | Encounter Summary ---
Author Organization Healthcare Address [address] [place] [address] Care Team Providers Care Senior Tax Analyst Name Role Phone Asad Victor MD Primary Care Provider + [phone] Reason for Visit * Auth/Cert (Routine) Specialty Diagnoses / Procedures Referred By Contac t Referred To Contact Diagnoses Wound infection Post-op Vasc Sx wounds - sx on 10/17 at Nathaly Nowak MD [address] [facility] [address] [place] [address] Phone: tel: fax: [facility] Emergency Department [address] [place] [address] Phone: tel: Referral ID Status Reason Start Date Expiration Date Visits Re quested Visits Authorized [id number] 1 1 Encounter Details Date Type Department Care Team (Late st Contact Info) Description 11/06/2024 10:47 AM EDT Anesthesia Event [facility] OPERATING ROOM [address] [place] [address] Bill Sue MD [address] [place] [address] Sabrina Mckeno PA [address] [facility] [address] [place] [address] Anesthesia Record Procedure Summary Procedure [...] lactated Ringer's infusion 0 mL * Agents Name O2 N2O Air Sevoflurane Isoflurane Desflurane Inspired Desflurane Inspired Isoflurane Inspired Sevoflurane N2O Inspired N2O * Blood [...] Location: Arm; Removal Date: 11/06/24; Removal Time: 152; Removal Reason: Leaking 11/05/242138 by Raj Laird RN 11/06/241519 by Brigitte Castellon RN Peripheral IV Placement Date: 10/25 06/18; Placement Time: 08; Catheter Size: 22 G; Orientation: Posterior, Right; Location: Hand; Removal Date: 11/08/24; Removal Time: 1138; Removal Reason: Leaking 11/06/24 08 by Es Garcia RN 11/08/24 113 by Brigitte Castellon RN ETT Placement Date: 10/25 06/18; Placement Time: 105 (created via procedure documentation); Mask Ventilation: 2; [...] DNP 11/06/24 1150 by Asad Lechuga CRNA, MANFRED documented in this encounter Social History Tobacco [...] drink first t dino in the morning (EYE-NURSE OBGYN) to steady your nerves or to get rid of a hangover? 0 10/18/2021 CAGE Questionnaire Score 0 022 Utilities Answer Date Recorded In the past 12 months has th e [employer], gas, oil, or water company threatened to [...] and Staff Patient location during procedure: OR AUTOMATION ARCHITECT: Asad Lechuga CRNA, DNP Performed: AUTOMATION ARCHITECT Patient Condition Indications for airway management: anesthesia [...] placement (Left) Location: [facility] OR 16 / [place] OR Surgeons: Nathaly Nowak MD [facility] Mono Bobby is a 64 y.o. male [...] s/p R CEA 2016 Last dose Xarelto: 812 AM AIRWAY HISTORY: Date Difficult Airway Blade [...] Abnormal Ventricular Rate 85 Atrial Rate 85 ND Interval 146 QRSD Interval 128 QT Interval 390 QTC Interval 464 P [place] 52 R [place] 263 T Wave [place] 57 Diagnosis Atrial-sensed ventricular-paced rhythm Diagnosis Biventricular [...] is no recent study available for direct avis-lt-ezvs comparison. [facility]: Pre-operative CIED Report Assessment and Sara- Procedural Reommendations: Name: Mono Bobby Date: 10/17/2024 : 1960 Age: 64 y.o. Patient has a Gang Sawyer: Berger SIGHTER-PM Remaining battery longevity adequate. Lead integrity test [...] CEA 2016), dysrhythmias (3rd degree AV block SIGHTER-P placed 08/2023 for Wenkeback with 11 sec pause), hyperlipidemia, pacemaker and PVD. Does not have angina, CHF, murmur, orthopnea, syncope or valvular heart disease. hypertension: Cardio additional comments: Follows with OSH Card last seen 09/25/24 ([place]) . Respiratory: home oxygen (2L). no asthma: [...] ENDARTERECTOMY N/A 2017 Endarterectomy Carotid Artery from [employer] CORONARY ANGIOPLASTY Left Coronary Angiography With Concomitant Left Heart Catheterization from [employer] CORONARY ARTERY BYPASS GRAFT N/A 2018 3V ELBOW SURGERY Right ENDARTERECTOMY Left 10/17/2024 common/SFA/Profunda thromboendarterectomy, EIA/ADOPTION SERVICES MANAGER stent HERNIA REPAIR KNEE ARTHROSCOPY Left VASCULAR SURGERY Left 09/21/2024 ADOPTION SERVICES MANAGER pseudoaneurym injection [5] Social History Tobacco Use [...] Info) Description 12/19/2024 7:30 AM EDT Appointment [facility] Lab [address] [place] [address] 12/19/2024 8:00 AM EDT Appointment [facility] Lab [address] [place] [address] 12/19/2024 9:00 AM EDT Office Visit [facility] [address] [place] [address] Nathaly Nowak MD [address] [facility] [address] [place] [address] documented as of this encounter Goals Goal Patient Goal Type Associated Problems Recent Progress Patient-Stated? Author Autogenera louise Goal Care Plan Autogenerated Problem No Ekta Arnett documented as of this encounter Procedures Procedure Name Priority Date/Time Associated Diagnosis Comments PB ANESTHESIA PLACEHOLDER Routine 11/06/2024 10:58 AM EDT ND AN ELECTIVE ENDOTRACHEAL AIRWAY Routine 11/06/2024 10:58 AM EDT documented in this encounter Results * ND AN ELECTIVE ENDOTRACHEAL AIRWAY, PB ANESTHESIA PLACEHOLDER (11/06/2024 10:58 AM EDT) Narrative Asad Lechuga CRNA, DNP - 11/06/2024 10:58 AM EDT Asad Lechuga CRNA, DNP 11/06/2024 11:05 AM Airway Date/Time: 11/06/2024 10:58 AM Reason: elective Airway not difficult General Information and Staff Patient location during procedure: OR AUTOMATION ARCHITECT: Asad Lechuga CRNA, DNP Performed: AUTOMATION ARCHITECT Patient Condition Indications for airway management: anesthesia [...] as of this encounter Care Teams Senior Tax Analyst Relationship Specialty Start Date End Date Asad Victor MD [address] [place], [place] [id number] PCP - General 10/07/22 documented as of this encounter
--- OUTSIDE RECORDS SUMMARY | 2024-11-18 13:10 | XMS_ITS | Encounter Summary ---
Author Organization [employer] ([place], [place], [place], [place]) Address [address] [place] [address] Care Team Providers Care Manager Line Name Role Phone Unavailable Primary Care Provider Unavailabl e Reason for Visit * Reason Comments Wound Care Encounter Details Date Type Department Care Team (Late st Contact Info) Description 11/18/2024 1:10 PM EDT Office Visit [facility] 1 [place] [address] Jerry Monroe Jr., MD [address] [place] [address] Non-pressure chronic ulcer of skin of [...] health nurse( if you have home health) [facility] for an appointment. documented in this encounter [...] upper leg. Patient was admitted to the [facility] on November 05, 2024 and dischargedon November [...] line. Patient is getting daily infusions at [facility] through his PICC line for antibiotics. He [...] provider verified the correct patient, procedure, equipment, system support developer, and site/side marked as required. [...] provider verified the correct patient, procedure, equipment, system support developer, and site/side marked as required. 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) Localized tissue (HCC) Other specified local infections of the skin and subcutaneous tissue [place] DEBRIDEMENT MUSCLE &/FASCIA EA ADDL 20 SQ CM Routine 11/18/2024 1:10 PM EDT 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) Localized tissue (HCC) Other specified local infections of the skin and subcutaneous tissue [place] DEBRIDEMENT MUSCLE &/FASCIA 1ST 20 SQ CM/< Routine 11/18/2024 1:10 PM EDT 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) Localized tissue (HCC) Other specified local infections of the skin and subcutaneous tissue [place] DEBRIDEMENT MUSCLE &/FASCIA EA ADDL 20 SQ CM Routine 11/18/2024 1:10 PM EDT 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) Localized tissue (HCC) Other specified local infections of the skin and subcutaneous tissue [place] DEBRIDEMENT MUSCLE &/FASCIA EA ADDL 20 SQ CM Routine 11/18/2024 1:10 PM EDT 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) Localized tissue (HCC) Other specified local infections of the skin and subcutaneous tissue [place] DEBRIDEMENT MUSCLE &/FASCIA 1ST 20 SQ CM/< Routine 11/18/2024 1:10 PM EDT 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 [...] MD PROCEDURE/MINOR SURGICAL ORDERABLES Final Result * [place] DEBRIDEMENT MUSCLE &/FASCIA 1ST 20 SQ CM/<, [place] DEBRIDEMENT MUSCLE &/FASCIA EA ADDL 20SQ CM, [place] DEBRIDEMENT MUSCLE &/FASCIA EA ADDL 20 SQ [...] provider verified the correct patient, procedure, equipment, system support developer, and site/side marked as required. [...]
--- OUTSIDE RECORDS SUMMARY | 2024-11-20 14:15 | XMS_ITS | Encounter Summary ---
Author Organization [employer] ([place], [place], [place], [place]) Address [address] [place] [address] Care Team Providers Care Staff Physician Name Role Phone Unavailable Primary Care Provider Unavailabl e Reason for Visit * Reason Comments Wound Care Nurse visit for woun d vac change, wound care and dressing change Encounter Details Date Type Department Care Team (Late st Contact Info) Description 11/20/2024 2:15 PM EDT Clinical Support [facility] 1 [place] [address] Jerry Monroe Jr., MD [address] [place] [address] Non-pressure chronic ulcer of skin of [...] for follow up appointment. The week of , change NPWT dressing on Monday and Monday only. Use above orders for all non-provider visits. No orders of the defined types were placed in this encounter. documented in this encounter Plan of Treatment Upcoming Encounters Date Type Department Care Team (Late st Contact Info) Description 12/16/2024 3:30 PM EDT Clinical Support [facility] [place] 1 [place] [address] 12/18/2024 3:00 PM EDT Office Visit [facility] 1 [place] [address] Jerry Monroe Jr., MD [address] [place] [address] 12/20/2024 3:30 PM EDT Clinical Support [facility] W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
--- OUTSIDE RECORDS SUMMARY | 2024-11-22 16:15 | XMS_ITS | Encounter Summary ---
Author Organization [employer] ([place], [place], [place], [place]) Address [address] [place] [address] Care Team Providers Care Bathing Suit Maker Name Role Phone Unavailable Primary Care Provider Unavailabl e Reason for Visit * Reason Comments Wound Care Encounter Details Date Type Department Care Team (Late st Contact Info) Description 11/22/2024 4:15 PM EDT Clinical Support [facility] 1 [place] [address] Jerry Monroe Jr., MD [address] [place] [address] Non-pressure chronic ulcer of skin of [...] Description 12/16/2024 3:30 PM EDT Clinical Support [facility] [place] 1 [place] [address] 12/18/2024 3:00 PM EDT Office Visit [facility] 1 [place] [address] Jerry Monroe Jr., MD [address] [place] [address] 12/20/2024 3:30 PM EDT Clinical Support [facility]ound [facility] [place] 1 [place] [address] documented as of this encounter Procedures Procedure [...]
--- OUTSIDE RECORDS SUMMARY | 2024-11-27 14:20 | XMS_ITS | Encounter Summary ---
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] is getting daily infusions at [facility] through his PICC line for antibiotics. [...] provider verified the correct patient, procedure, equipment, operations support representative, and site/side marked as required. Debridement Details [...] provider verified the correct patient, procedure, equipment, operations support representative, and site/side marked as required. Debridement Details [...] Description 12/16/2024 3:30 PM EDT Clinical Support [facility] 1 [place] [address] 12/18/2024 3:00 PM EDT Office Visit [facility] 1 [place] [address] Jerry Monroe Jr., MD [address] [place] [address] 12/20/2024 3:30 PM EDT Clinical Support [facility] 1 [place] [address] documented as of this encounter Procedures Procedure [...] provider verified the correct patient, procedure, equipment, operations support representative, and site/side marked as required. Debridement Details [...] provider verified the correct patient, procedure, equipment, operations support representative, and site/side marked as required. Debridement Details [...]
--- OUTSIDE RECORDS SUMMARY | 2024-11-29 16:00 | XMS_ITS | Encounter Summary ---
Author Organization [employer] ([place], [place], [place], [place]) Address [address] [place] [address] Care Team Providers Care Bore Mill Operator Name Role Phone Unavailable Primary Care Provider Unavailabl e Reason for Visit * Reason Comments Wound Care Encounter Details Date Type Department Care Team (Late st Contact Info) Description 11/29/2024 4:00 PM EDT Clinical Support [facility] 1 [place] [address] Jerry Monroe Jr., MD [address] [place] [address] Social History Tobacco Use Types Packs/Day [...] health nurse( if you have home health) [facility]. * Nallely [...] 3:30 PM EDT Clinical Support [facility] 1 [place] [address] 12/18/2024 3:00 PM EDT Office Visit [facility] 1 [place] [address] Jerry Monroe Jr., MD [address] [place] [address] 12/20/2024 3:30 PM EDT Clinical Support [facility] 1 [place] [address] documented as of this encounter Visit Diagnoses Not on filedocumented in this encounter
--- OUTSIDE RECORDS SUMMARY | 2024-12-02 14:15 | XMS_ITS | Encounter Summary ---
Author Organization [employer] ([place], [place], [place], [place]) Address [address] [place] [address] Care Team Providers Care Dining Services Manager Name Role Phone Unavailable Primary Care Provider Unavailabl e Reason for Visit * Reason Comments Wound Care Nurse visit for woun d vac and dressing change, wound care Encounter Details Date Type Department Care Team (Late st Contact Info) Description 12/02/2024 2:15 PM EDT Clinical Support [facility] 1 [place] [address] Jerry Monroe Jr., MD [address] [place] [address] Non-pressure chronic ulcer of skin of [...] Description 12/16/2024 3:30 PM EDT Clinical Support [facility] [place] 1 [place] [address] 12/18/2024 3:00 PM EDT Office Visit [facility] [place] 1 [place] [address] Jerry Monroe Jr., MD [address] [place] [address] 12/20/2024 3:30 PM EDT Clinical Support [facility] [place] 1 [place] [address] documented as of this encounter Visit Diagnoses Diagnosis 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
--- OUTSIDE RECORDS SUMMARY | 2024-12-04 13:40 | XMS_ITS | Encounter Summary ---
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) Procedures Wound Treatment Jerry Monroe Jr., MD [address] [place] [address] Phone: tel: fax: Referral ID Status Reason Start Date Expiration Date V isits Requested Visits Authorized [id number] Pending Review 12/04/2024 12/04/2025 3 3 Reason for Visit * Reason Comments Wound Care Encounter Details Date Type Department Care Team (Late st Contact Info) Description 12/04/2024 1:40 PM EDT Office Visit [facility] 1 [place] [address] Jerry Monroe Jr., MD [address] [place] [address] Non-pressure chronic ulcer of skin of [...] upper leg. Patient was admitted to the [facility] on November 05, 2024 and [...] line. Patient is getting daily infusions at [facility] through his PICC line for [...] provider verified the correct patient, procedure, equipment, desktop support technician, and site/side marked as required. [...] provider verified the correct patient, procedure, equipment, desktop support technician, and site/side marked as required. [...] Description 12/16/2024 3:30 PM EDT Clinical Support [facility] 1 [place] [phone] 12/18/2024 3:00 PM EDT Office Visit [facility] 1 [place] [address] Jerry Monroe Jr., MD [address] [place] [address] 12/20/2024 3:30 PM EDT Clinical Support [facility] 1 [place] [address] documented as of this encounter Procedures Procedure [...] NURSING PATHWAYS ORDERABL ES Final Result * [place] DEBRIDEMENT MUSCLE &/FASCIA 1ST 20 SQ CM/<, [place] DEBRIDEMENT MUSCLE &/FASCIA EA ADDL 20SQ CM [...] provider verified the correct patient, procedure, equipment, desktop support technician, and site/side marked as required. [...] [place] DEBRIDEMENT MUSCLE &/FASCIA EA ADDL 20SQ CM [...] provider verified the correct patient, procedure, equipment, desktop support technician, and site/side marked as required. [...]
--- OUTSIDE RECORDS SUMMARY | 2024-12-09 15:30 | XMS_ITS | Encounter Summary ---
Author Organization [employer] ([place], [place], [place], [place]) Address [address] [place] [address] Care Team Providers Care Business Continuity Director Name Role Phone Unavailable Primary Care Provider Unavailabl e Reason for Visit * Reason Comments Wound Care Encounter Details Date Type Department Care Team (Late st Contact Info) Description 12/09/2024 3:30 PM EDT Clinical Support [facility] 1 [place] [address] Jerry Monroe Jr., MD [address] [place] [address] Non-pressure chronic ulcer of skin of [...] Description 12/16/2024 3:30 PM EDT Clinical Support [facility] [place] 1 [place] [address] 12/18/2024 3:00 PM EDT Office Visit [address] [phone] Jerry Monroe Jr., MD [address] [place] [address] 12/20/2024 3:30 PM EDT Clinical Support [address] [address] documented as of this encounter Procedures Procedure [...]
--- OUTSIDE RECORDS SUMMARY | 2024-12-11 14:40 | XMS_ITS | Encounter Summary ---
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 Patient was admitted to the [facility] on November 05, 2024 and [...] line. Patient is getting daily infusions at [facility] through his PICC line for [...] the correct patient, procedure, equipment, product support analyst, and site/side marked as required. [...] the correct patient, procedure, equipment, product support analyst, and site/side marked as required. [...] EDT Clinical Support [facility] [place] 1 [place] [address] 12/18/2024 3:00 PM EDT Office Visit [address] [address] Jerry Monroe Jr., MD [address] [place] [address] 12/20/2024 3:30 PM EDT Clinical Support [facility] 1 [place] [address] documented as of this encounter [...] NE DEBRIDEMENT MUSCLE &/FASCIA EA ADDL 20SQ CM [...] the correct patient, procedure, equipment, product support analyst, and site/side marked as required. [...] NE DEBRIDEMENT MUSCLE &/FASCIA EA ADDL 20SQ CM [...] the correct patient, procedure, equipment, product support analyst, and site/side marked as required. [...]
--- OUTSIDE RECORDS SUMMARY | 2024-12-13 12:00 | XMS_ITS | Encounter Summary ---
Author Organization [employer] ([place], [place], [place], [place]) Address [address] [place] [address] Care Team Providers Care Risk Analyst Name Role Phone Unavailable Primary Care Provider Unavailabl e Reason for Visit * Reason Comments Wound Care Encounter Details Date Type Department Care Team (Late st Contact Info) Description 12/13/2024 12:00 PM EDT Clinical Support [facility] 1 [place] [address] Jerry Monroe Jr., MD [address] [place] [address] Non-pressure chronic ulcer of skin of [...] Clinical Support [facility] [address] [address] 12/18/2024 3:00 PM EDT Office Visit [facility] Care [address] [address] Jerry Monroe Jr., MD [address] [place] [address] 12/20/2024 3:30 PM EDT Clinical Support [facility] Care [address] [address] documented as of this encounter Procedures Procedure [...]
--- OUTSIDE RECORDS SUMMARY | 2024-12-16 08:07 | XMS_ITS | Encounter Summary ---
Author Organization Healthcare Address [address] [place] [address] Care Team Providers Care Perch Mender Name Role Phone Asad Victor MD Primary Care Provider + [phone] Encounter Details Date Type Department Care Team (Late st Contact Info) Description 12/04/2024 Telephone [facility] [address] [facility] 5th Floor Wing [address], [address] [place] [address] Nathaly Nowak MD [address] [facility] [address] [place] [address] Social History Tobacco Use Types [...] first t dino in the morning (EYE-COMMUNITY LIVING COACH) to steady your nerves or to get rid of a hangover? 0 10/18/2021 CAGE Questionnaire Score 0 022 Utilities Answer Date Recorded In the past 12 months has th e [employer], gas, oil, or water company threatened to [...] EDT Returned phone call to Judy at [facility]. Patient previously stated that he is receiving wound care at [facility]. We unfortunately do not have these records at this time, we have sent two requests and are awaiting them at this time. Patient has not yet been seen in clinic for his post-operative appointment. * Telephone Encounter - Clare Fleming - 12/04/2024 11:35 AM EDT Clinical Concern/Question Reason for Call: judy at [facility] calling for wound measurements for wound vac. Please call Best contact number: Other: [phone] [phone] Optimal time of day to reach caller: [...] Info) Description 12/19/2024 7:30 AM EDT Appointment [facility] [address] [place] [address] 12/19/2024 8:00 AM EDT Appointment [facility] [address] [place] [address] 12/19/2024 9:00 AM EDT Office Visit [facility] [address] [place] [address] Nathaly Nowak MD [address] [facility] [address] [place] [address] documented as of this encounter Goals Goal [...] documented as of this encounter Care Teams Perch Mender Relationship Specialty Start Date End Date Asad Victor MD [address] [place] [address] PCP - General 10/07/22 documented as of this encounter
--- OUTSIDE RECORDS SUMMARY | 2024-12-16 08:14 | XMS_ITS | Encounter Summary ---
Author Organization [employer] ([place], [place], [place], [place]) Address [address] [place] [address] Care Team Providers Care Aircraft Instrument Engineer Name Role Phone Unavailable Primary Care [...] 3:30 PM EDT Clinical Support [facility] [place] [place] 1 [place] [address] 12/18/2024 3:00 PM EDT Office Visit [facility] [place] [place] 1 [place] [address] Jerry Monroe Jr., MD [address] [place] [address] 12/20/2024 3:30 PM EDT Clinical Support [facility] [place] [place] 1 [place] [address] documented as of this encounter Visit Diagnoses Not on filedocumented in this encounter
--- OUTSIDE RECORDS SUMMARY | 2024-12-16 08:16 | XMS_ITS | Encounter Summary ---
Author Organization [employer] ([place], [place], [place], [place]) Address [address] [place] [address] Care Team Providers Care Degreasing Solution Mixer Name Role Phone Unavailable Primary Care Provider [...] Description 12/16/2024 3:30 PM EDT Clinical Support [facility] [place] 1 [place] [address] 12/18/2024 3:00 PM EDT Office Visit [facility] [place] 1 [place] [address] Jerry Monroe Jr., MD [address] [place] [address] 12/20/2024 3:30 PM EDT Clinical Support [facility] [place] 1 [place] [address] documented as of this encounter Visit Diagnoses Not on filedocumented in this encounter
--- OUTSIDE RECORDS SUMMARY | 2024-12-16 08:18 | XMS_ITS | Encounter Summary ---
Author Organization [employer] ([place], [place], [place], [place]) Address [address] [place] [address] Care Team Providers Care Retail Specialist Name Role Phone Unavailable Primary Care [...] Support [facility] [place] 1 [place] [address] 12/18/2024 3:00 PM EDT Office Visit [facility] [place] 1 [place] [address] Jerry Monroe Jr., MD [address] [place] [address] 12/20/2024 3:30 PM EDT Clinical Support [facility] [place] 1 [place] [address] documented as of this encounter Visit Diagnoses Not on filedocumented in this encounter
--- OUTSIDE RECORDS SUMMARY | 2024-12-16 08:22 | XMS_ITS | Encounter Summary ---
Author Organization Healthcare Address [address] [place] [id number] Care Team Providers Care Industrial Machine System Technician Name Role Phone Asad Victor MD Primary Care Provider + [phone] Reason for Visit * Reason Onset Date Comments [facility] Clinical Concern/Question 11/15/2024 Encounter Details Date Type Department Care Team (Late st Contact Info) Description 11/15/2024 Telephone [facility] [address] [facility] 5th Floor [address] [place] [address] Nathaly Nowak MD [address] [facility] [address] [place] [address] [facility] Clinical Concern/Question Social History [...] first t dino in the morning (EYE-HAND WINDER) to steady your nerves or to [...] has been receiving his wound care through [facility] [place]. Records requested from there. Post-op appointment request [...] with info. Thank you Best contact number: [phone] (mobile) Optimal time of day to reach [...] Info) Description 12/19/2024 7:30 AM EDT Appointment [facility] [address] [place] [address] 12/19/2024 8:00 AM EDT Appointment [facility] [address] [place] [address] 12/19/2024 9:00 AM EDT Office Visit [facility] [address] [facility] 5th Floor [address] [place] [address] Nathaly Nowak MD [address] [facility] [address] [place] [address] documented as of this encounter [...] documented as of this encounter Care Teams Industrial Machine System Technician Relationship Specialty Start Date End Date Asad Victor MD [address] [place] [address] PCP - General 10/07/22 documented as of this encounter
--- OUTSIDE RECORDS SUMMARY | 2024-12-16 08:23 | XMS_ITS | Encounter Summary ---
Author Organization [employer] ([place], [place], [place], [place]) Address [address] [place] [address] Care Team Providers Care Lens Polisher Name Role Phone Unavailable Primary Care Provider [...] Clinical Support [facility] [place] 1 [place] [address] 12/18/2024 3:00 PM EDT Office Visit [facility] [place] 1 [place] [address] Jerry Monroe Jr., MD [address] [place] [address] 12/20/2024 3:30 PM EDT Clinical Support [facility] [place] 1 [place] [address] documented as of this encounter Visit Diagnoses Not on filedocumented in this encounter
[2024-12-16] MEDS: SODIUM CHLORIDE 0.9% IV (08:25)
[2024-12-16] MEDS: MICAFUNGIN SODIUM IV (08:25)
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
--- OUTSIDE RECORDS SUMMARY | 2024-12-16 08:25 | XMS_ITS | Encounter Summary ---
Author Organization [employer] ([place] Address [address] [place] [address] Care Team Providers Care Leather Shaver Name Role Phone Unavailable Primary Care Provider [...] Description 12/16/2024 3:30 PM EDT [facility] Support [facility] [place] [address] [place] [phone] 12/18/2024 3:00 PM EDT Office Visit [facility] [place] [address] [place] [address] Jerry Monroe Jr., MD [address] [place] [address] 12/20/2024 3:30 PM EDT Clinical Support [facility] [place] [address] [place] [address] documented as of this encounter Visit Diagnoses Not on filedocumented in this encounter
[2024-12-16] MEDS: SODIUM CHLORIDE 0.9% 10ML FLUSH SYRINGE 10 ML IV (08:26)
--- OUTSIDE RECORDS SUMMARY | 2024-12-16 08:26 | XMS_ITS | Encounter Summary ---
Author Organization Healthcare Address [address] [id number] Care Team Providers Care Wharfmaster Name Role Phone Asad Victor MD Primary Care Provider + [phone] Encounter Details Date Type Department Care Team (Late st Contact Info) Description 10/22/2024 Telephone Vascular Surgery [address] [place] [address] Alison Beltrán, HULLER OPERATOR, DNP [address] [facility] [address] [place] [address] Social History Tobacco Use Types Packs/Day Years [...] drink first t dino in the morning (EYE-PARK INTERPRETIVE RANGER) to steady your nerves or to get [...] Notes * Telephone Encounter - Alison Beltrán, HULLER OPERATOR, DNP - 10/22/2024 11:39 AM EDT Returned patient call. Patient s/p left common/superficial/profunda femoral thromboendarterectomy with bovine patch repair and left external iliac artery/OIL FIELD CASER stent with Dr Gautam on 10/17/24. Patient [...] Info) Description 12/19/2024 7:30 AM EDT Appointment [facility] [address] [place] [address] 12/19/2024 8:00 AM EDT Appointment [facility] [address] [place] [address] 12/19/2024 9:00 AM EDT Office Visit [facility] [address] [place] [address] Nathaly Nowak MD [address] [facility] [address] [place] [address] documented as of this encounter Goals Goal [...] documented as of this encounter Care Teams Wharfmaster Relationship Specialty Start Date End Date Asad Victor MD [address] [place] [address] PCP - General 10/07/22 documented as of this encounter
--- OUTSIDE RECORDS SUMMARY | 2024-12-16 08:27 | XMS_ITS | Encounter Summary ---
Author Organization Healthcare Address [address] [place] [address] Care Team Providers Care Restaurant Hourly Team Member Name Role Phone Asad Victor MD Primary Care Provider + [phone] Encounter Details Date Type Department Care Team (Late st Contact Info) Description 10/17/2024 Orders Only External Location [address] [place] [address] Provider, External Social History Tobacco Use Types [...] drink first t dino in the morning (EYE-EXECUTIVE OFFICER SPECIAL WARFARE TEAM) to steady your nerves or to get rid of a hangover? 0 10/18/2021 CAGE Questionnaire Score 0 022 Utilities Answer Date Recorded In the past 12 months has th e [employer], gas, oil, or water [employer] threatened to shut off services in your [...] Info) Description 12/19/2024 7:30 AM EDT Appointment [facility] [address] [place] [address] 12/19/2024 8:00 AM EDT Appointment [facility] [address] [place] [address] 12/19/2024 9:00 AM EDT Office Visit [facility] [address] [place] [address] Nathaly Nowak MD [address] [place] [address] documented as of this encounter Goals Goal [...] as of this encounter Care Teams Restaurant Hourly Team Member Relationship Specialty Start Date End Date Asad Victor MD [address] [place] [address] PCP - General 10/07/22 documented as of this encounter
--- OUTSIDE RECORDS SUMMARY | 2024-12-16 08:27 | XMS_ITS | Encounter Summary ---
Author Organization Healthcare Address [address] [place] [address] Care Team Providers Care Rod Hanger Name Role Phone Asad Victor MD Primary Care Provider + [phone] Encounter Details Date Type Department Care Team (Late st Contact Info) Description 11/27/2024 Orders Only [address] [address] Vaishali Kraus MD [address] [place] [address] [address] [place] [address] Therapeutic drug monitoring (Primary Dx) [...] drink first t dnio in the morning (EYE-DIRECT CARE SUPERVISOR) to steady your nerves or to [...] Appointment [facility] [address] [place] [address] 12/19/2024 8:00 AM EDT Appointment [facility] [address] [place] [address] 12/19/2024 9:00 AM EDT Office Visit [facility] [address] [place] [address] Nathaly Nowak MD [address] [facility] [address] [place] [address] Scheduled Orders Name Type Priority Associated Diagnoses [...] Goal Care Plan Autogenerated Problem No Ekta Arentt documented as of this encounter Visit Diagnoses Diagnosis Therapeutic drug monitoring- Primary Encounter for therapeutic drug monitoring documented in this encounter Additional Health Concerns Active Problems Noted Date Diagnosed Date Autogenerated Problem 09/23/2024 Assessment Noted Time A Body Mass Index follow-up plan has been documented for the patient 11/15/2024 8:19 AM EDT documented as of this encounter Care Teams Rod Hanger Relationship Specialty Start Date End Date Asad Victor MD [address] [facility] [place] [address] PCP - General 10/07/22 documented as of this encounter
--- OUTSIDE RECORDS SUMMARY | 2024-12-16 08:27 | XMS_ITS | Encounter Summary ---
Author Organization [facility] Address [address] [place] [address] Care Team Providers Care Forensic Nurse Name Role Phone Asad Victor MD Primary Care Provider + [phone] Encounter Details Date Type Department Care Team [...] drink first t dino in the morning (EYE-COLON AND RECTAL SURGEON) to steady your nerves or to get [...] [facility] [address] [place] [address] 12/19/2024 8:00 AM EDT Appointment [facility] [address] [place] [address] 12/19/2024 9:00 AM EDT Office Visit [facility] [address] [place] [address] Nathaly Nowak MD [address] [facility] [address] [place] [address] documented as of this encounter [...] documented as of this encounter Care Teams Forensic Nurse Relationship Specialty Start Date End Date Asad Victor MD [address] [place] [address] PCP - General 10/07/22 documented as of this encounter
--- OUTSIDE RECORDS SUMMARY | 2024-12-16 08:30 | XMS_ITS | Encounter Summary ---
Author Organization Healthcare Address [address] [place] [address] Care Team Providers Care Principal Statistical Programmer Name Role Phone Asad Victor MD Primary Care Provider + [phone] Encounter Details Date Type Department Care Team (Late st Contact Info) Description 12/07/2024 Results Follow-Up [address] [place] [address] Vaishali Kraus MD [address] [facility] [address] [place] [address] Social History Tobacco Use Types [...] drink first t dino in the morning (EYE-BUFFER OPERATOR) to steady your nerves or to [...] Info) Description 12/19/2024 7:30 AM EDT Appointment [facility] Vascular Lab [address] 5th Floor Wing [address] [place] [address] 12/19/2024 8:00 AM EDT Appointment [facility] [address] [place] [address] 12/19/2024 9:00 AM EDT Office Visit [facility] [address] Floor [address] [place] [address] Nathaly Nowak MD [address] [facility] [address] [place] [address] documented as of this encounter Goals Goal [...] as of this encounter Care Teams Principal Statistical Programmer Relationship Specialty Start Date End Date Asad Victor MD [address] [place] [address] PCP - General 10/07/22 documented as of this encounter
--- OUTSIDE RECORDS SUMMARY | 2024-12-16 08:30 | XMS_ITS | Clinical Summary ---
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); Localized tissue (HCC); Other specified local infections of the skin and subcutaneous tissue; Diabetes mellitus with skin ulcer (HCC) 12/09/2024 3:30 PM EDT Clinical Support [facility] [address] [place] [phone] Jerry Monroe Jr., MD 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) 12/09/2024 Travel 12/04/2024 1:40 PM EDT Office Visit [place] [phone] Jerry Monroe Jr., MD 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); Localized tissue (HCC); Other specified local infections of the skin and subcutaneous tissue; Diabetes mellitus with skin ulcer (HCC) 12/04/2024 Travel 12/02/2024 2:15 PM EDT Clinical Support [facility] 1 [place] [address] Jerry Monroe Jr., MD 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) 12/02/2024 Travel 11/29/2024 4:00 PM EDT Clinical Support [facility] [place] [address] [place] [address] Jerry Monroe Jr., MD 11/27/2024 2:20 PM EDT Office Visit [facility] [address] [place] [phone] Jerry Monroe Jr., MD 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); Localized tissue (HCC); Other specified local infections of the skin and subcutaneous tissue; Diabetes mellitus with skin ulcer (HCC) 11/27/2024 Travel 11/22/2024 4:15 PM EDT Clinical Support [facility] [place] [address] [phone] Jerry Monroe Jr., MD 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) 11/20/2024 2:15 PM EDT Clinical Support [place] [phone] Jerry Monroe Jr., MD 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) 11/20/2024 Travel 11/18/2024 1:10 PM EDT Office Visit [facility] [address] [place] [phone] Jerry Monroe Jr., MD Non-pressure chronic ulcer [...] Clinical Support [facility] [place] [address] [place] [address] 12/18/2024 3:00 PM EDT Office Visit [facility] 1 [place] [address] Jerry Monroe Jr., MD [address] [place] [address] 12/20/2024 3:30 PM EDT Clinical Support [facility] 1 [place] [address] Health Maintenance Due Date Last [...] other sites with necrosis of muscle (HCC) [place] DEBRIDEMENT MUSCLE &/FASCIA EA ADDL 20 [...] other sites with necrosis of muscle (HCC) [place] DEBRIDEMENT MUSCLE &/FASCIA EA ADDL 20 [...] other sites with necrosis of muscle (HCC) [place] DEBRIDEMENT MUSCLE &/FASCIA EA ADDL 20 [...] NURSING PATHWAYS ORDERABL ES Final Result * [place] DEBRIDEMENT MUSCLE &/FASCIA 1ST 20 SQ CM/<, [place] DEBRIDEMENT MUSCLE &/FASCIA EA ADDL 20SQ CM [...] provider verified the correct patient, procedure, equipment, help desk support, and site/side marked as required. Debridement [...] [place] DEBRIDEMENT MUSCLE &/FASCIA EA ADDL 20SQ CM [...] provider verified the correct patient, procedure, equipment, help desk support, and site/side marked as required. Debridement [...] [place] DEBRIDEMENT MUSCLE &/FASCIA EA ADDL 20SQ CM [...] provider verified the correct patient, procedure, equipment, help desk support, and site/side marked as required. Debridement [...] [place] DEBRIDEMENT MUSCLE &/FASCIA EA ADDL 20SQ CM [...] provider verified the correct patient, procedure, equipment, help desk support, and site/side marked as required. Debridement [...] provider verified the correct patient, procedure, equipment, help desk support, and site/side marked as required. Debridement [...] provider verified the correct patient, procedure, equipment, help desk support, and site/side marked as required. Debridement [...] provider verified the correct patient, procedure, equipment, help desk support, and site/side marked as required. Debridement [...] provider verified the correct patient, procedure, equipment, help desk support, and site/side marked as required. Debridement [...] Final Result from Last 3 Months Insurance [facility] ADV DUAL COMPLETE MEDICAID OF [place]
--- OUTSIDE RECORDS SUMMARY | 2024-12-16 08:30 | XMS_ITS | Referral Summary ---
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) 12/11/2024 2:40 PM EDT Office Visit [facility] [place] [address] [place] [address] Jerry Monroe Jr., MD 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); Localized tissue (HCC); Other specified local infections of the skin and subcutaneous tissue; Diabetes mellitus with skin ulcer (HCC) 12/09/2024 Travel 12/09/2024 3:30 PM EDT Clinical Support [facility] [place] [address] [place] [address] Jerry Monroe Jr., MD 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) 12/04/2024 Travel 12/04/2024 1:40 PM EDT Office Visit [facility] [place] [address] [place] [address] Jerry Monroe Jr., MD 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); Localized tissue (HCC); Other specified local infections of the skin and subcutaneous tissue; Diabetes mellitus with skin ulcer (HCC) 12/02/2024 Travel 12/02/2024 2:15 PM EDT Clinical Support [facility] 1 [place] [address] Jerry Monroe Jr., MD 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) 11/29/2024 4:00 PM EDT Clinical Support [facility] [place] [address] [place] [address] Jerry Monroe Jr., MD 11/27/2024 Travel 11/27/2024 2:20 PM EDT Office Visit [facility] [place] [address] [place] [address] Jerry Monroe Jr., MD 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); Localized tissue (HCC); Other specified local infections of the skin and subcutaneous tissue; Diabetes mellitus with skin ulcer (HCC) 11/22/2024 4:15 PM EDT Clinical Support [facility] [place] [address] [place] [phone] Jerry Monroe Jr., MD 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) 11/20/2024 Travel 11/20/2024 2:15 PM EDT Clinical Support [facility] [place] [address] [place] [address] Jerry Monroe Jr., MD 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) 11/18/2024 Travel 11/18/2024 1:10 PM EDT Office Visit [facility] [place] [address] [place] [address] Jerry Monroe Jr., MD Non-pressure chronic ulcer [...] Description 12/16/2024 3:30 PM EDT Clinical Support [facility] [place] [address] [place] [address] 12/18/2024 3:00 PM EDT Office Visit [facility] [address] [address] Jerry Monroe Jr., MD [address] [place] [address] 12/20/2024 3:30 PM EDT Clinical Support [facility] [address] [address] Procedures Procedure Name Priority Date/Time Associated Diagnosis Comments WOUND TREATMENT Routine 12/13/2024 1:49 PM EDT 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) WOUND TREATMENT Routine 12/11/2024 6:05 PM EDT 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 [...] [place] DEBRIDEMENT MUSCLE &/FASCIA EA ADDL 20SQ CM [...] the correct patient, procedure, equipment, medical support specialist, and site/side marked as required. [...] [place] DEBRIDEMENT MUSCLE &/FASCIA EA ADDL 20SQ CM [...] the correct patient, procedure, equipment, medical support specialist, and site/side marked as required. [...] [place] DEBRIDEMENT MUSCLE &/FASCIA EA ADDL 20SQ CM [...] the correct patient, procedure, equipment, medical support specialist, and site/side marked as required. [...] the correct patient, procedure, equipment, medical support specialist, and site/side marked as required. [...] the correct patient, procedure, equipment, medical support specialist, and site/side marked as required. [...] the correct patient, procedure, equipment, medical support specialist, and site/side marked as required. [...] the correct patient, procedure, equipment, medical support specialist, and site/side marked as required. [...] Final Result from Last 3 Months Insurance [facility] ADV DUAL COMPLETE MEDICAID OF [place]
[2024-12-16 08:31] LABS: Hematocrit 33.3 % (42.0-52.0); Hemoglobin 10.9 g/dL (14.1-18.0); Immature Granulocytes % 0.4 %; Mean Corpuscular HGB Conc 32.7 g/dL (31.8-35.4); Mean Corpuscular Hemoglobin 28.4 pg (27.0-31.2); Mean Corpuscular Volume 86.7 fl (80-94); Nucleated Red Blood Cells % 0 %; Platelet Count 418 K/mm3 (142-424); Red Blood Count 3.84 M/mm3 (4.60-6.20); Red Cell Distribution Width-SD 44.0 fL; White Blood Count 11.5 K/mm3 (4.8-10.8)
--- OUTSIDE RECORDS SUMMARY | 2024-12-16 08:31 | XMS_ITS | Encounter Summary ---
Author Organization [employer] ([place], [place]) Address [address] [place] [address] Care Team Providers Care Therapist Radiation Name Role Phone Unavailable Primary Care Provider [...] Support [facility] [place] [address] [place] [address] 12/18/2024 3:00 PM EDT Office Visit [facility] [place] [address] [place] [address] Jerry Monroe Jr., MD [address] [place] [address] 12/20/2024 3:30 PM EDT Clinical Support [facility] [place] [address] [place] [address] documented as of this encounter Visit Diagnoses Not on filedocumented in this encounter
--- OUTSIDE RECORDS SUMMARY | 2024-12-16 08:32 | XMS_ITS | Encounter Summary ---
Author Organization [facility] Address [address] [place] [address] Care Team Providers Care Roving Tester Laboratory Name Role Phone Asad Victor MD Primary Care Provider + [phone] Encounter Details Date Type Department Care Team [...] first t dino in the morning (EYE-GUIDE CHANGER) to steady your nerves or to [...] [facility] [address] [place] [address] 12/19/2024 8:00 AM EDT Appointment [facility] [address] [place] [address] 12/19/2024 9:00 AM EDT Office Visit [facility] [address] [place] [address] Nathaly Nowak MD [address] [place] [address] documented as of this encounter Goals Goal [...] documented as of this encounter Care Teams Roving Tester Laboratory Relationship Specialty Start Date End Date Asad Victor MD [address] [place] [address] PCP - General 10/07/22 documented as of this encounter
--- OUTSIDE RECORDS SUMMARY | 2024-12-16 08:32 | XMS_ITS | Encounter Summary ---
Author Organization Healthcare Address [address] [place] [address] Care Team Providers Care Pin Attacher Name Role Phone Asad Victor MD Primary Care Provider + [phone] Encounter Details Date Type Department Care Team (Late st Contact Info) Description 11/05/2024 Orders Only External Location [address] [place] [address] Provider, External Social History Tobacco Use Types [...] first t dino in the morning (EYE-TATTOO IDENTIFIER) to steady your nerves or to get rid of a hangover? 0 10/18/2021 CAGE Questionnaire Score 0 022 Utilities Answer Date Recorded In the past 12 months has th e [employer], gas, oil, or water company threatened to [...] Info) Description 12/19/2024 7:30 AM EDT Appointment [facility] Lab [address] [place] [address] 12/19/2024 8:00 AM EDT Appointment [facility] [address] [place] [address] 12/19/2024 9:00 AM EDT Office Visit [facility] [address] [place] [address] Nathaly Nowak MD [address] [place] [address] [place] [address] documented as of this encounter Goals Goal [...] documented as of this encounter Care Teams Pin Attacher Relationship Specialty Start Date End Date Asad Victor MD [address] [place] [address] PCP - General 10/07/22 documented as of this encounter
[2024-12-16 08:33] LABS: Albumin Level 3.9 g/dl (3.5-5.0)
--- OUTSIDE RECORDS SUMMARY | 2024-12-16 08:33 | XMS_ITS | Encounter Summary ---
Author Organization [employer] ([place], [place], [place]) Address [address] [place] [address] Care Team Providers Care Java Web Engineer Name Role Phone Unavailable Primary Care [...] Support [facility] [place] [address] [place] [address] 12/18/2024 3:00 PM EDT Office Visit [facility] [place] [address] [place] [address] Jerry Monroe Jr., MD [address] [place] [address] 12/20/2024 3:30 PM EDT Clinical Support [facility] [place] [address] [place] [phone] documented as of this encounter Visit Diagnoses Not on filedocumented in this encounter
--- OUTSIDE RECORDS SUMMARY | 2024-12-16 08:33 | XMS_ITS | Encounter Summary ---
Author Organization Healthcare Address [address] [place] [address] Care Team Providers Care Transit Bus Driver Name Role Phone Asad Victor MD Primary Care Provider + [phone] Encounter Details Date Type Department Care Team (Late st Contact Info) Description 11/15/2024 Clinical Support [place] [id number] [place] [address] Charly Orlando, PharmD [address] [place] [address] [address] [place] [address] Social History Tobacco Use Types [...] drink first t dino in the morning (EYE-VEGETABLE TESTER) to steady your nerves or to get rid of a hangover? 0 10/18/2021 CAGE Questionnaire Score 0 022 Utilities Answer Date Recorded In the past 12 months has th e [employer], gas, oil, or water company threatened to [...] Info) Description 12/19/2024 7:30 AM EDT Appointment [facility] Vascular [facility] [address] [facility] [address] [place] [address] 12/19/2024 8:00 AM EDT Appointment [facility] [address] [place] [address] 12/19/2024 9:00 AM EDT Office Visit [facility] [address] [place] [address] Nathaly Nowak MD [address] [place] [phone] documented as of this encounter Goals Goal [...] documented as of this encounter Care Teams Transit Bus Driver Relationship Specialty Start Date End Date Asad Victor MD [address] [place] [address] PCP - General 10/07/22 documented as of this encounter
[2024-12-16 08:35] LABS: Bilirubin,Unconjugated 0.3 mg/dL (0.0-1.1)
[2024-12-16 08:36] LABS: Alanine Aminotransferase 26 U/L (12-78); Alkaline Phosphatase 121 U/L (38-126); Aspartate Amino Transferase 29 U/L (17-59); Bilirubin,Direct 0.0 mg/dl (0.0-0.4); Bilirubin,Indirect 0.2 mg/dL (0.0-0.9); Bilirubin,Total 0.2 mg/dl (0.2-1.3); Blood Urea Nitrogen 29 mg/dl (9-20); Creatinine,Serum 0.70 mg/dl (0.66-1.25); Estimated Glomerular Filt Rate 113 ml/min (>60); GFR (African American) 137 ML/MIN (>60); Total Protein,Serum 6.9 g/dl (6.3-8.2)
[2024-12-16 08:38] VITALS: BP 140/61; PULSE 67; RESP 16; TEMP 36.1; O2SAT 95
[2024-12-16 08:55] LABS: C-Reactive Protein 3.0 mg/L (0-4)
[2024-12-16] MEDS: ERTAPENEM SODIUM 1 GM in 0.9 % SODIUM CHLORIDE 50 ML IV (09:33)
[2024-12-16 10:03] VITALS: BP 129/58; PULSE 73; RESP 16; TEMP 36.4; O2SAT 97
== END 2024-12-16 23:59 | disposition home or self-care (01) ==
LOC: INF 08:03
PROVIDERS: PCP Family Medicine
DX: Z51.81 Encounter for therapeutic drug level monitoring (principal); T81.49XA Infection following a procedure, other surgical site, initial encounter; L08.9 Local infection of the skin and subcutaneous tissue, unspecified
CPT/HCPCS: 36592; 80076; 82565; 84520; 85025; 86140; 96365; 96367; J1335; J2248

== ENCOUNTER 2024-12-17 08:05 | Outpatient (CLI) | payer MEDICARE, OTHER, SELFPAY ==
[2024-12-17 08:10] VITALS: BP 133/64; PULSE 68; RESP 19; O2SAT 97
[2024-12-17] MEDS: SODIUM CHLORIDE 0.9% IV (08:18)
[2024-12-17] MEDS: MICAFUNGIN SODIUM IV (08:18)
[2024-12-17] MEDS: SODIUM CHLORIDE 0.9% 10ML FLUSH SYRINGE 10 ML IV (09:21)
[2024-12-17] MEDS: ERTAPENEM SODIUM 1 GM in 0.9 % SODIUM CHLORIDE 50 ML IV (09:21)
[2024-12-17 09:29] VITALS: BP 146/55; PULSE 71; RESP 18; TEMP 36.7; O2SAT 97
[2024-12-17 10:18] VITALS: BP 164/73; PULSE 70; RESP 18; TEMP 36.7; O2SAT 94
== END 2024-12-17 23:59 | disposition home or self-care (01) ==
PROVIDERS: PCP Family Medicine; Visit Provider Family Medicine
DX: T81.49XA Infection following a procedure, other surgical site, initial encounter (principal); L08.9 Local infection of the skin and subcutaneous tissue, unspecified
CPT/HCPCS: 96365; 96367; J1335; J2248

== ENCOUNTER 2024-12-18 08:03 | Outpatient (CLI) | payer MEDICARE, OTHER, SELFPAY ==
[2024-12-18 08:30] VITALS: BP 137/79; PULSE 69; RESP 17; O2SAT 97
[2024-12-18] MEDS: ERTAPENEM SODIUM 1 GM in 0.9 % SODIUM CHLORIDE 50 ML IV (08:30)
[2024-12-18 09:12] VITALS: BP 140/79; PULSE 66; RESP 17
[2024-12-18] MEDS: SODIUM CHLORIDE 0.9% IV (09:12)
[2024-12-18] MEDS: MICAFUNGIN SODIUM IV (09:12)
[2024-12-18 10:30] VITALS: BP 152/73; PULSE 68; RESP 17
--- NOTE | 2024-12-18 10:49 | ECG_ITS ---
APPROVED REPORT Exam: Resting ECG HR:69 bpm ECG Measurements Heart Rate 69 AXES VT 158 P 16 QRSd 125 QRS -6 QT 391 T 60 QTc 410 Conclusion ELECTRONIC VENTRICULAR PACEMAKER ABNORMAL RHYTHM ECG UNCONFIRMED REPORT Electronically signed by : Maxwell Rodriguez MD 12/20/2024 08:41:32
== END 2024-12-18 23:59 | disposition home or self-care (01) ==
LOC: INF 08:04
PROVIDERS: PCP Family Medicine
DX: T82.7XXA Infection and inflammatory reaction due to other cardiac and vascular devices, implants and grafts, initial encounter (principal); T81.49XA Infection following a procedure, other surgical site, initial encounter; L08.9 Local infection of the skin and subcutaneous tissue, unspecified
CPT/HCPCS: 93005; 96365; 96367; J1335; J2248

== ENCOUNTER 2024-12-19 08:04 | Outpatient (CLI) | payer MEDICARE, OTHER, SELFPAY ==
--- OUTSIDE RECORDS SUMMARY | 2024-11-05 21:45 | XMS_ITS | Encounter Summary ---
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 Manage Infection Flowsheets (Taken 11/10/20241124) Infection Management: aseptic technique maintained Fever Reduction/Comfort Measures: fluid intake increased Isolation Precautions: precautions maintained protective Problem: Fall Injury Risk Goal: Absence of Fall and Fall-Related Injury Outcome: Ongoing, Progressing Intervention: Identify and Manage Contributors Flowsheets (Taken 11/10/20241124) Medication Review/Management: medications reviewed Self-Care Promotion: independence [...] 09/21/24, CLI s/p left femoral endarterectomy with EIA/INSTRUCTIONAL SERVICES LIBRARIAN stenting 10/17/24, who presented to [facility] 11/05/2024 with wound infection. 11/06/24: [...] Airway None Output by Drain (mL) 11/08/24 07 - 11/08/24 18511/08/24 1900 - 11/09/24 0659 11/09/24 07 - [...] from last 7 days Lab Units 11/10/24 00311/09/245 11/08/24 0439 CREATININE mg/dL 0.72 0.67* 0.75 [...] 09/21/24, CLI s/p left femoral endarterectomy with EIA/INSTRUCTIONAL SERVICES LIBRARIAN stenting 10/17/24, who presented to [facility] 11/05/2024 with wound infection. POD [...] Care Review Outcome: Ongoing, Progressing Flowsheets (Taken 11/09/20243) Progress: improving Plan of Care Reviewed With: [...] Taken 11/09/20242202 Medication Review/Management: medications reviewed Taken 11/09/2024 010 Sensory Stimulation Regulation: quiet environment promoted television [...] Protection: protective footwear used Taken 11/09/20241622 by Deisy, Brid M, RN Pressure Reduction Techniques: frequent weight shift encouraged Taken 11/09/2024100 by Eber Hanson, CHRISTIAN Pressure Reduction Devices: positioning supports utilized Intervention: [...] Intervention: Prevent or Manage Infection Flowsheets (Taken 11/09/20241622) Infection Management: aseptic technique maintained Fever Reduction/Comfort Measures: fluid intake increased Isolation Precautions: precautions maintained protective Problem: Comorbidity Management Goal: Blood Pressure in Desired Range Outcome: Ongoing, Progressing Intervention: Maintain Blood Pressure Management Flowsheets (Taken 11/09/20241622) Medication Review/Management: medications reviewed dosing adjusted Problem: Skin Injury Risk Increased Goal: Skin Health and Integrity Outcome: Ongoing, Progressing Intervention: Optimize Skin Protection Flowsheets (Taken 11/09/2024 1623) Activity Management: activity adjusted per tolerance ambulated in ruelas Pressure Reduction Techniques: frequent weight shift encouraged Skin Protection: protective footwear used Head of Bed (HOB) Positioning: HOB elevated Intervention: Promote and Optimize Oral Intake Flowsheets (Taken 11/09/20241622) Nutrition Interventions: supplemental foods provided * Procedures - Estefani Barraza RN - 11/09/2024 1:11 PM EDTAssociated Order(s): Insert PICC line Insert PICC line Date/Time: 11/09/2024 1:11 PM Performed by: Estefani Barraza RN Authorized by: Nathaly Nowak MD [place] Protocol: Verbal consent obtained?: Yes Written consent [...] selection rationale: Left pacemaker Catheter Lot #: [id number] Catheter schedule supervisor: The 5th Quarter Catheter placed: Single lumen Catheter size: 4 [...] 09/21/24, CLI s/p left femoral endarterectomy with EIA/INSTRUCTIONAL SERVICES LIBRARIAN stenting 10/17/24, who presented to [facility] 11/05/2024 with wound infection. 11/06/24: [...] 09/21/24, CLI s/p left femoral endarterectomy with EIA/INSTRUCTIONAL SERVICES LIBRARIAN stenting 10/17/24, who presented to [facility] 11/05/2024 with wound infection. POD [...] Dispo: Continue Current Level of Care Edwin Donal M4 student [facility] Cosigned by Nathaly Nowak MD at 11/11/2024 [...] PT session. Patient reports he went to [facility] 12th floor via w/c yesterday to [...] Mobility: Ambulatory- community (was utilizing scooter at [employer] since discharge) Mobility [place]: Independent gait with device History of Falls: [...] Mobility Bed Mobility Exam: Scooting/Bridging Level of [place]: Modified independence Bed Mobility Exam: Supine to Sit Level of [place]: Modified [place] Transfers Transfer Exam: Sit to stand Level of [place]: Modified independence Assistive Device: Rollator Transfer Exam: Stand to Sit Level of [place]: Modified independence Assistive Device: Rollator Ambulation Device: [...] maintain/improve functional mobility and endurance. Standardized Assessments [facility] 6-Clicks Mobility Assessment Difficulty patient has turning [...] A little [facility] 6-Clicks Mobility Assessment Total : 22 Assessment [...] Mobility Ambulatory- community (was utilizing scooter at [employer] since discharge) Mobility [place] Independent gait with device History of Falls [...] distal to knee) BED MOBILITY Level of [place] Physical/Non-physical Assist Adaptive Equipment Utilized Scooting/ Bridging Modified independence Supine to Sit Modified [place] TRANSFERS Level of [place] Physical/Non-physical Assist Adaptive Equipment Utilized Sit to Stand Modified independence Rollator Stand to sit Modified independence Rollator Toilet Transfer Modified independence Grab bar FUNCTIONAL MOBILITY Ambulation Modified independent 200ft x2 with seated rest break between bouts; RPE 5-7/10. Cues forsafety with rollator brakes. Rollator Comments BALANCE Postural Appearance Posture: Within Functional Limits Level of [place] Balance Support Static Sit Independent Feet supported Dynamic Sit Independent Feet supported Static Stand Independent Right upper extremity support, Left upper extremity support (via rollator) Dynamic Stand Independent Right upper extremity support, Left upper extremity support (via rollator) STANDARDIZED ASSESSMENTS [facility] 6-Click Daily Activities Help from Other: Don/Doff Regular Lower Body Clothings: None Help From Other: Bathing: None Help From Other: Toileting: None Help From Other: Don/Doff Upper Body Clothings: None Help From Other: Grooming: None Help From Other: Eating Meals: None [facility] 6 Click - Daily Activities Score: 24 [...] needed areas of treatment space. Level of [place] Interventions Grooming Modified independent Standing sinkside Pt [...] Fluid and Electrolyte Balance Flowsheets (Taken 11/08/2024 134) Fluid/Electrolyte Management: fluids provided Goal: Absence of Infection Signs and Symptoms Outcome: Ongoing, Progressing Intervention: Prevent or Manage Infection Flowsheets (Taken 11/08/2024 134) Infection Management: aseptic technique maintained Goal: Anesthesia/Sedation [...] Note Bev Borja 64 y.o. male CSN: [id number] Admission: 11/05/2024 9:45 PM Primary Problem: Wound infection SW went to bedside to discuss placement options for modified OPAT. Per patient, ID stated he would be able to dc home with a PICC and home antibiotics. SW relayed message to team. Wound vac order sent to [place] at for potential Monday discharge if patient does go home. SW will continue to follow and assist as needed. Mariia Macedo INTERNAL AFFAIRS INVESTIGATOR * Progress Notes - Bianca Knight PharmD [...] continue to follow, Submitted by: Bianca Knight, [place], [facility] 11/08/2024 11:15 AM * Progress Notes - Melecio Echevarria DO - 11/08/2024 7:18 AM EDT Images from the original note were not included. [facility] Department of Surgery Division of Vascular Surgery Surgery Progress Note 11/08/24 Bev Borja Subjective Subjective: HPI 64yoM PMHx COPD, T2DM, HLD, HTN, RLS, CAD s/p PCI (on Xarelto) s/p pacemaker c/b left SANDIP pseudoaneurysm s/p thrombin injection 09/21/24, CLI s/p left femoral endarterectomy with EIA/INSTRUCTIONAL SERVICES LIBRARIAN stenting 10/17/24, who presented to [facility] 11/05/2024 with wound infection. 11/06/24: [...] Airway None Output by Drain (mL) 11/06/24 0700 - 11/06/24 1859 11/06/24 1900 - 11/07/24 [...] MD Home meds Hold blood thinners Diabetes ([facility]) Overview Addendum 10/19/2021 10:41 AM by Giovanna [...] completed 10/19 Pseudoaneurysm of left femoral artery ([facility]) COPD (chronic obstructive pulmonary disease) ([facility]) Overview Signed 10/18/2021 7:30 PM by Gallo Gallardo MD Not on home inhalers A-fib ([facility]) Overview Addendum 10/19/2021 10:39 AM by Giovanna Junior APRN Hold anticoagulation Metoprolol restarted BPH (benign prostatic hyperplasia) Overview Addendum 10/19/2021 10:41 AM by Giovanna Junior APRN Flomax restarted Subarachnoid hemorrhage ([facility]) Overview Addendum 10/20/2021 8:23 AM by Giovanna Junior APRN Left frontal, right occipital NSGY consulted - Repeat CTH showing slight worsening of tSAH - no need for further imaging, will continue to follow clinically 10/20: spoke with NSGY via phone and stated to hold ASA and Xarelto for 2 weeks Closed compression fracture of L3 lumbar vertebra, initial encounter ([facility]) Overview Signed 10/18/2021 7:35 PM by Gallo [...] 09/21/24, CLI s/p left femoral endarterectomy with EIA/INSTRUCTIONAL SERVICES LIBRARIAN stenting 10/17/24, who presented to [facility] 11/05/2024 with wound infection. POD [...] 1960 Age: 64 y.o. Patient has a Vamp Strap Ironer: Berger PATIENT ACCOUNTS MANAGER-PM Remaining battery longevity adequate. Lead integrity [...] recommendations. Supporting reports can be found in [employer] media file. Micro: Susceptibility data from last 90 days. Collected Specimen Info Organism 11/06/24 Tissue from Other (specify site) Gram Negative Jesus 11/06/24 Swab from Other (specify site) Enterobacter cloacae complex Results Procedure Component Value Units Date/Time Fungal Culture, Routine [[id number]] Collected: 11/06/241127 Order Status: Completed Specimen: Swab from Other (specify site) Updated: 11/08/24 09 Culture No Fungal Growth <1 Week Fungal Culture, Routine [[id number]] Collected: 11/06/241128 Order Status: Completed Specimen: Swab from Other (specify site) Updated: 11/08/24 09 Culture No Fungal Growth <1 Week Fungal Culture, Tissue and ISIDRO [[id number]] Collected: 11/06/24 113 Order Status: Completed Specimen: Tissue from Other (specify site) Updated: 11/08/24 0912 Culture Reading Mycological 4 Weeks No Fungal Growth <1 Week ISIDRO No fungal elements seen Blood Culture (Aerobic/Anaerobet Set) [[id number]] Collected: 11/06/24106 Order Status: Completed Specimen: Blood from AC, Left Updated: 11/08/24 0302 Culture No growth at day 2 Blood Culture (Aerobic/Anaerobet Set) [[id number]] Collected: 11/06/24106 Order Status: Completed Specimen: Blood from Hand, Right Updated: 11/08/24 0302 Culture No growth at day 2 Tissue Culture and Gram Stain [[id number]] (Abnormal) Collected: 11/06/241133 Order Status: Completed Specimen: [...] in pairs Routine Culture and Gram Stain [[id number]] (Abnormal) Collected: 11/06/241128 Order Status: Completed Specimen: Swab from Other (specify site) Updated: 11/07/24 1426 Culture Moderate Growth Enterobacter cloacae complex Comment: This isolate has been identified using the FDA Approved MALDI AirXPer CA System The organism value for this result has been updated. These results have been appended to the previously preliminary verified report. Gram Stain Result No polymorphonuclear leukocytes seen No organisms seen AFB Culture, Non Respiratory Source and Acid Fast Stain [[id number]] Collected: 11/06/24 1134 Order Status: Completed Specimen: Tissue from Other (specify site) Updated: 11/07/24 1404 Acid Fast Stain No acid fast bacilli seen Routine Culture and Gram Stain [[id number]] Collected: 11/06/241127 Order Status: Completed Specimen: Swab from Other (specify site) Updated: 11/07/24 0855 Culture No growth at day 1 Gram Stain Result No organisms seen No polymorphonuclear leukocytes seen Anaerobic Culture [[id number]] Collected: 11/06/241127 Order Status: Sent Specimen: Swab from Other (specify site) Updated: 11/06/24 1220 Abscess Culture and Gram Stain [[id number]] Collected: 11/06/241127 Order Status: Canceled Specimen: Swab from Other (specify site) Updated: 11/06/24 1220 Anaerobic Culture [[id number]] Collected: 11/06/241128 Order Status: Sent Specimen: Swab from Other (specify site) Updated: 11/06/24 1219 Abscess Culture and Gram Stain [[id number]] Collected: 11/06/241128 Order Status: Canceled Specimen: Swab from Other (specify site) Updated: 11/06/24 121 Anaerobic Culture [[id number]] Collected: 11/06/241133 Order Status: Sent Specimen: Tissue from Other (specify site) Updated: 11/06/24 121 Micro: BC x2 11/06: no growth at [...] OSH. On 11/06, pt went to the [place] vascular surgery for left groin exploration and [...] the time spent on the encounter was [id number] providing direct patient care, counseling for the patient/caregiver, and care coordination. [1] Current Facility-Administered Medications Medication Dose Route Frequency Provider Last Rate Last Admin acetaminophen (Tylenol) tablet 1,000 mg 1,000 mg Oral q6h [facility] Anthony Reyes MD 1,000 mg at 11/08/24 0520 aspirin chewable tablet 81 mg 81 mg Oral Daily Reid Daniels MD 81 mg at 11/08/24 0837 cefepime (Maxipime) 2 g in sodium chloride 0.9% 100 mL IVPB (vial adapter required) 2 g [id number] Reid Daniels MD 36.7 mL/hr at 11/08/24 [...] 20 mg Oral Daily with dinner Reid Daneils MD rOPINIRole (Requip) tablet 2 mg 2 [...] q12h Jerry Holcomb MD 10 mL at 11/08/24 08 And sodium chloride 0.9 % flush 10 mL 10 mL Intravenous PRN Jerry Holcomb MD tamsulosin (Flomax) 24 hr capsule 0.4 mg 0.4 mg Oral q PM Anthony Reyes MD 0.4 mg at vancomycin in NS (Vancocin) IVPB 1,250 mg 1,250 mg Intravenous q12h Nathaly Nowak MD 200 mL/hr at11/08/24 0520 1,250 mg at 11/08/24 0520 * Care Plan - Rivera Grossman Tee - 11/07/2024 8:38 PM EDT Problem: Adult [...] Plan: OPAT at a medical/nursing facility (e.g, [facility], Swing Bed, Nursing facility) OPAT Nurse [...] IV Access: pending Patient Specific Outpatient Circumstances: [address] [place] [id number] Contact information Bev Borja [phone] (home) Extended Emergency Contact Information Primary Emergency Contact: Patti Hill Relation: Sister Police Specialist needed? No Outpatient services (including home [...] via secure chat or staff messaging in [employer]. OPAT Modified program for IV antimicrobial therapy [...] most recent note for this information. Yola APODACA RN 11/07/2024 * Care Plan - Brigitte [...] Maintain Heart Failure Management Flowsheets (Taken 11/07/2024 1526) Medication Review/Management: medications reviewed Goal: Blood Pressure in Desired Range Outcome: Ongoing, Progressing Intervention: Maintain Blood Pressure Management Flowsheets (Taken 11/07/2024 1526) Medication Review/Management: medications reviewed Goal: Maintenance of Osteoarthritis Symptom Control Outcome: Ongoing, Progressing Intervention: Maintain Osteoarthritis Symptom Control Flowsheets Taken 11/07/2024 1526 Medication Review/Management: medications reviewed Taken 11/07/2024 1400 Activity Management: activity encouraged Goal: Bariatric Home Regimen Maintained Outcome: Ongoing, Progressing Intervention: Maintain and Manage Postbariatric Surgery Care Flowsheets (Taken 11/07/2024 1526) Medication Review/Management: medications [...] Note Bev Borja 64 y.o. male CSN: [id number] Admission: 11/05/2024 9:45 PM Primary Problem: Wound infection Rfid Specialist reviewed chart and spoke with patient to complete this Initial Case Management Assessment. PCP: Asad Victor MD (Inactive) Dr. Palomo in [facility] Emergency Contact: Extended Emergency Contact Information Primary Emergency Contact: Patti iHll Relation: Sister Police Specialist needed? No Insurance: Primary Visit Coverage Payer Plan Sponsor Code Group Number Group Name [facility] MEDICARE UHC MEDICARE REPLACEMENT [id number] Primary Visit Coverage Subscriber Subscriber ID Subscriber Name Subscriber SSN Subscriber Address [id number] BEV BORJA [id number] [place] [address] Secondary Visit Coverage Payer Plan Sponsor Code Group Number Group Name [facility]ET[facility] MEDICAID AENA [facility] Secondary Visit Coverage Subscriber Subscriber ID Subscriber Name Subscriber SSN Subscriber Address [id number] BEV BORJA [id number] [place] [address] Patient information: Primary Caregiver: Self Support System: Immediate family Daily Living Activities: Functional Status: Independent Living Arrangements: Alone Type of Residence: Private residence, Single Level [address] [place] [address] Current DME: Equipment Currently Used at Home: walkerjoy Income Information: Income Source: Disabled Income/Expense Information: Income meets expenses Current Resources Utilized: [place] Housing Circumstances-Z Codes: Housing Circumstances (select all [...] Dialysis Services: None Living Will/Advance Directive/Power of Tax Services Manager /Guardian: Have you reviewed your Advance Directive and is it valid for this stay?: No Advance Directive: Not applicable Information Provided on Healthcare Directives: No Pre-existing DNR/DNI Order: No Patient Requests Assistance: No Additional Comments: Patient is not medically ready for discharge. Patient uses [facility] for transportation and will need assistance with discharge transport. SW will continue to follow. Mariia Macedo INTERNAL AFFAIRS INVESTIGATOR * Progress Notes - Melecio Echevarria, DO - 11/07/2024 9:24 AM EDT Images from the original note were not included. [employer] Department of Surgery Division of Vascular Surgery Surgery Progress Note 11/07/24 Bev Borja Subjective Subjective: HPI 64yoM PMHx COPD, T2DM, HLD, HTN, RLS, CAD s/p PCI (on Xarelto) s/p pacemaker c/b left SANDIP pseudoaneurysm s/p thrombin injection 09/21/24, CLI s/p left femoral endarterectomy with EIA/INSTRUCTIONAL SERVICES LIBRARIAN stenting 10/17/24, who presented to [facility] 11/05/2024 with wound infection. 11/06/24: [...] Airway None Output by Drain (mL) 11/05/24 0700 - 11/05/24 18511/05/24 1900 - 11/06/24 0659 11/06/24 0700 - 11/06/24 1859 11/06/24 1900 - 11/07/24 0659 11/07/24 07 - 11/07/24 09 Patient has no LDAs of requested type [...] completed 10/19 Pseudoaneurysm of left femoral artery ([facility]) COPD (chronic obstructive pulmonary disease) ([facility]) Overview Signed 10/18/2021 7:30 PM by Gallo Gallardo MD Not on home inhalers A-fib ([facility]) Overview Addendum 10/19/2021 10:39 AM by Giovanna Junior APRN Hold anticoagulation Metoprolol restarted BPH (benign prostatic hyperplasia) Overview Addendum 10/19/2021 10:41 AM by Giovanna Junior APRN Flomax restarted Subarachnoid hemorrhage ([facility]) Overview Addendum 10/20/2021 8:23 AM by Giovanna Junior APRN Left frontal, right occipital NSGY consulted - Repeat CTH showing slight worsening of tSAH - no need for further imaging, will continue to follow clinically 10/20: spoke with NSGY via phone and stated to hold ASA and Xarelto for 2 weeks Closed compression fracture of L3 lumbar vertebra, initial encounter ([facility]) Overview Signed 10/18/2021 7:35 PM by Gallo [...] 09/21/24, CLI s/p left femoral endarterectomy with EIA/INSTRUCTIONAL SERVICES LIBRARIAN stenting 10/17/24, who presented to [facility] 11/05/2024 with wound infection. POD [...] Edited by: Melecio Echevarria DO at 11/07/2024 7138 Dispo: Continue Current Level of Care Melecio [...] from the original note were not included. [facility] Department of Surgery Division of Vascular [...] of breath, nausea and vomiting. [facility] Currently well controlled. Objective: Vitals: Vitals: 11/06/24 1552 BP: (!) 162/69 Pulse: 81 Resp: Temp: 36.4 ??C (97.5 ??F) SpO2: 98% Output by Drain (mL) 11/04/24 0700 - 11/04/24 1859 11/04/24 1900 - 11/05/24 0659 11/05/24 0700 - 11/05/24 1859 11/05/24 1900 - 11/06/24 0659 11/06/24 0700 - 11/06/24 1859 11/06/24 1900 - 11/06/241923 Patient has no LDAs of requested type [...] Diet: Regular Anticoagulation/DVT ppx: Held Pain management: [facility] Level of care: Continue Current Level of Care I have answered and addressed all issues and concerns from the patient and nursing staff. I have notified senior resident/attending extrusion machine operator with any issues or concerns. Melecio [...] Agree with above assessment and evaluation from resident/ELECTRICAL MAINTENANCE TECHNICIAN. * Consults - Oscar Appiah MD [...] the findings. Cardiac Device Check - PRE-OR [facility]: Pre-operative CIED Report Assessment and Sara-Procedural Reommendations: Name: Bev Borja Date: 10/17/2024 : 1960 Age: 64 y.o. Patient has a Vamp Strap Ironer: Berger PATIENT ACCOUNTS MANAGER-PM Remaining battery longevity adequate. Lead integrity [...] recommendations. Supporting reports can be found in [employer] media file. Micro: No results found for the last 90 days. Results Procedure Component Value Units Date/Time Anaerobic Culture [[id number]] Collected: 11/06/241127 Order Status: Sent Specimen: Swab from Other (specify site) Updated: 11/06/241219 Fungal Culture, Routine [[id number]] Collected: 11/06/241127 Order Status: Sent Specimen: Swab from Other (specify site) Updated: 11/06/241219 Routine Culture and Gram Stain [[id number]] Collected: 11/06/241127 Order Status: Sent Specimen: Swab from Other (specify site) Updated: 11/06/241219 Abscess Culture and Gram Stain [[id number]] Collected: 11/06/241127 Order Status: Canceled Specimen: Swab from Other (specify site) Updated: 11/06/241219 Anaerobic Culture [[id number]] Collected: 11/06/241128 Order Status: Sent Specimen: Swab from Other (specify site) Updated: 11/06/241218 Fungal Culture, Routine [[id number]] Collected: 11/06/241128 Order Status: Sent Specimen: Swab from Other (specify site) Updated: 11/06/241218 Routine Culture and Gram Stain [[id number]] Collected: 11/06/241128 Order Status: Sent Specimen: Swab from Other (specify site) Updated: 11/06/241218 Abscess Culture and Gram Stain [[id number]] Collected: 11/06/241128 Order Status: Canceled Specimen: Swab from Other (specify site) Updated: 11/06/241218 Anaerobic Culture [[id number]] Collected: 11/06/241133 Order Status: Sent Specimen: Tissue from Other (specify site) Updated: 11/06/241217 Tissue Culture and Gram Stain [[id number]] Collected: 11/06/241133 Order Status: Sent Specimen: Tissue from Other (specify site) Updated: 11/06/241217 AFB Culture, Non Respiratory Source and Acid Fast Stain [[id number]] Collected: 11/06/241133 Order Status: Sent Specimen: Tissue from Other (specify site) Updated: 11/06/241217 Fungal Culture, Tissue and ISIDRO [[id number]] Collected: 11/06/24 1134 Order Status: Sent Specimen: Tissue from Other (specify site) Updated: 11/06/24 1218 Blood Culture (Aerobic/Anaerobet Set) [[id number]] Collected: 11/06/24106 Order Status: Completed Specimen: Blood from AC, Left Updated: 11/06/243 Culture Culture in lab Blood Culture (Aerobic/Anaerobet Set) [[id number]] Collected: 11/06/24106 Order Status: Completed Specimen: Blood [...] OSH. On 11/06, pt went to the [place] [facility] for left groin exploration and [...] the time spent on the encounter was [id number] providing direct patient care, counseling for the patient/caregiver, and care coordination. [1] Past Medical History: Diagnosis Date Arthritis Old myocardial infarction History of myocardial infarction [2] Past Surgical History: Procedure Laterality Date ANKLE SURGERY Right CARDIAC PACEMAKER PLACEMENT CAROTID ENDARTERECTOMY N/A 2017 Endarterectomy Carotid Artery from [facility] CORONARY ANGIOPLASTY Left Coronary Angiography With Concomitant Left Heart Catheterization from [facility] CORONARY ARTERY BYPASS GRAFT N/A 2018 3V ELBOW SURGERY Right ENDARTERECTOMY Left 10/17/2024 common/SFA/Pro[facility] thromboendarterectomy, EIA/[employer] stent HERNIA REPAIR KNEE ARTHROSCOPY Left VASCULAR SURGERY Left 09/21/2024 [employer] pseudoaneurym injection [3] Family History Problem Relation [...] tablet 1,000 mg 1,000 mg Oral q6h [facility] Anthony Reyes MD 1,000 mg at [...] Note Bev Borja 64 y.o. male CSN: [id number] Admission: 11/05/2024 9:45 PM Primary Problem: Wound infection Patient in OR today. SW will continue to follow. Mariia Macedo INTERNAL AFFAIRS INVESTIGATOR * Op Note - Jerry Holcomb MD - 11/06/2024 11:23 AM EDT Operative Note Date: 11/06/24 Location: [facility] Name: Bev Borja, : 1960, Diagnoses: Pre-op Diagnosis Surgical wound infection Post-op Diagnosis Surgical wound infection Procedure(s): Excisional debridement left groin (skin, subcutaneous tissue. Final measurements 10 x 7 x 6.5 cm) Excisional debridement left thigh (skin, subcutaneous tissue. Final measurements 8 x 2 x 3 cm) Attending Surgeon(s): * Nathaly Nowak - Primary Shear Operator(s): * Luna Beckett MD -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 stick is not feasible, please ensure that line is flushed well prior to drawing level. Than... (11/10/2024 10:56 AM EDT) Vancomycin, Peak, Plasma 23.8 20.0 - 40.0 ug/mL 11/10/2024 11:25 AM EDT [facility] Blood Venous blood specimen / Unknown Venipuncture / Unknown 11/10/2024 10:56 AM EDT 11/10/2024 11:00 AM EDT Narrative [facility] - 11/10/2024 11:25 AM EDT Therapeutic Peak level: 20-40ug/mL Supra-therapeutic Peak level: >40 ug/mL us Abigail Seay MD LAB BLOOD ORDERABLES Final Res ult Performing Organization Address [facility] de Phone Number [facility] [address] [place] [address] * (ABNORMAL) POCT glucose meter (11/10/2024 8:03 AM EDT) POCT Glucose 174(H) 74 - 99 mg/dL 11/10/2024 8:04 AM EDT [facility] Comment:Accuracy of a glucos e [...] Comment 11/10/2024 8:04 AM EDT HEALTHCARE LAB Mechanics Handyman ID Esperanza Parks 11/10/2024 8:04 AM EDT HEALTHCARE LAB Device ID [id number] 11/10/2024 8:04 AM EDT HEALTHCARE LAB Specimen Type POC Capillary 11/10/2024 8:04 AM EDT HEALTHCARE LAB Blood Capillary blood specimen / Unknown 11/10/2024 8:03 AM EDT 11/10/2024 8:04 AM EDT us Nathaly Nowak MD LAB POINT OF CARE TE ST DOCKED DEVICE UNSOLICITED RESULTS Final Result [facility] [address] [place] [id number] * Vancomycin, Trough, Plasma Please draw ~30 minutes prior to dose due at 0800 on 11/10. Please do NOThold dose awaiting level to return. Consider obtaining level via peripheral stick. If peripheral stick is not feasible, please ensure that line is... (11/10/2024 7:27 AM EDT) Vancomycin, Trough, Plasma 16.2 10.0 - 20.0 ug/mL 11/10/2024 8:24 AM EDT [facility] Blood Venous blood specimen / Unknown Venipuncture / Unknown 11/10/2024 7:27 AM EDT 11/10/2024 7:51 AM EDT Narrative [facility] - 11/10/2024 8:24 AM EDT Therapeutic Trough level: 10-20ug/mL Supra-therapeutic Trough level: >20 ug/mL us Abigail Seay MD LAB BLOOD ORDERABLES Final Res ult [facility] [address] [place] [phone] * (ABNORMAL) CBC and Differential (11/10/2024 12:31 AM EDT) WBC Count 10.80(H) 3.70 - 10.30 10*3/uL LAB HEMATOLOGY METHOD 11/10/2024 12:53 AM EDT [facility] RBC Count 3.06(L) 4.60 - 6.10 10*6/uL LAB HEMATOLOGY METHOD 11/10/2024 12:53 AM EDT [facility] HGB 9.1(L) 13.7 - 17.5 g/dL LAB HEMATOLOGY METHOD 11/10/2024 12:53 AM EDT [facility] HCT 28.0(L) 40.0 - 51.0 % LAB HEMATOLOGY METHOD 11/10/2024 12:53 AM EDT [facility] Platelet Count 501(H) 155 - 369 10*3/uL LAB HEMATOLOGY METHOD 11/10/2024 12:53 AM EDT [facility] MCV 92 79 - 98 fL LAB HEMATOLOGY METHOD 11/10/2024 12:53 AM EDT [facility] MCH 29.7 26.0 - 32.0 pg LAB HEMATOLOGY METHOD 11/10/2024 12:53 AM EDT [facility] MCHC 32.5 30.7 - 35.5 g/dL LAB HEMATOLOGY METHOD 11/10/2024 12:53 AM EDT [facility] RDW 13.2 11.5 - 14.5 % LAB HEMATOLOGY METHOD 11/10/2024 12:53 AM EDT [facility] MPV 8.8 8.8 - 12.5 fL LAB HEMATOLOGY METHOD 11/10/2024 12:53 AM EDT [facility] nRBC 0.0 <=0.0 per 100 WBCs LAB HEMATOLOGY METHOD 11/10/2024 12:53 AM EDT [facility] Differential Type Automated LAB HEMATOLOGY METHOD 11/10/2024 12:53 AM EDT [facility] Neutrophils % 77 % LAB HEMATOLOGY METHOD 11/10/2024 12:53 AM EDT [facility] Lymphocytes % 13 % LAB HEMATOLOGY METHOD 11/10/2024 12:53 AM EDT [facility] Monocytes % 8 % LAB HEMATOLOGY METHOD 11/10/2024 12:53 AM EDT [facility] Eosinophils % 1 % LAB HEMATOLOGY METHOD 11/10/2024 12:53 AM EDT [facility] Basophils % 0 % LAB HEMATOLOGY METHOD 11/10/2024 12:53 AM EDT [facility] Immature Granulocytes % 1 % LAB HEMATOLOGY METHOD 11/10/2024 12:53 AM EDT [facility] Neutrophils Absolute 8.32(H) 1.60 - 6.10 10*3/uL LAB HEMATOLOGY METHOD 11/10/2024 12:53 AM EDT [facility] Lymphocytes Absolute 1.40 1.20 - 3.90 10*3/uL LAB HEMATOLOGY METHOD 11/10/2024 12:53 AM EDT [facility] Monocytes Absolute 0.89 0.30 - 0.90 10*3/uL LAB HEMATOLOGY METHOD 11/10/2024 12:53 AM EDT [facility] Eosinophils Absolute 0.09 0.00 - 0.50 10*3/uL LAB HEMATOLOGY METHOD 11/10/2024 12:53 AM EDT [facility] Basophils Absolute 0.04 0.00 - 0.10 10*3/uL LAB HEMATOLOGY METHOD 11/10/2024 12:53 AM EDT [facility] Immature Granulocytes Absolute 0.06 0.00 - 0.06 10*3/uL LAB HEMATOLOGY METHOD 11/10/2024 12:53 AM EDT [facility] Blood Venous blood specimen / Unknown Venipuncture / Unknown 11/10/2024 12:31 AM EDT 11/10/2024 12:37 AM EDT Narrative [facility] - 11/10/2024 12:53 AM EDT Therapeutic decision making should be based on absolute values, rather than percentages. us Nathaly Nowak MD LAB BLOOD ORDERABLES Final Resu lt [facility] [address] [place] [address] * (ABNORMAL) Comprehensive Metabolic Panel, Plasma (11/10/2024 12:31 AM EDT) Glucose, Plasma 185(H) 74 - 99 mg/dL 11/10/2024 1:05 AM EDT [facility] BUN, Plasma 9 8 - 23 mg/dL 11/10/2024 1:05 AM EDT [facility] Creatinine, Plasma 0.72 0.70 - 1.20 mg/dL 11/10/2024 1:05 AM EDT [facility] BUN/Creatinine Ratio 13 11/10/2024 1:05 AM EDT [facility] Sodium, Plasma 135(L) 136 - 145 mmol/L 11/10/2024 1:05 AM EDT [facility] Potassium, Plasma 4.0 3.6 - 4.9 mmol/L 11/10/2024 1:05 AM EDT [facility] Chloride, Plasma 106 97 - 107 mmol/L 11/10/2024 1:05 AM EDT [facility] CO2, Plasma 19(L) 22 - 29 mmol/L 11/10/2024 1:05 AM EDT [facility] Anion Gap 10 6 - 16 mmol/L 11/10/2024 1:05 AM EDT [facility] Total Calcium, Plasma 7.8(L) 8.9 - 10.2 mg/dL 11/10/2024 1:05 AM EDT [facility] Total Protein 5.6(L) 6.3 - 7.9 g/dL 11/10/2024 1:05 AM EDT [facility] Albumin, Plasma 3.1(L) 3.5 - 5.2 g/dL 11/10/2024 1:05 AM EDT [facility] AST, Plasma 33 10 - 50 U/L 11/10/2024 1:05 AM EDT [facility] ALT, Plasma 25 10 - 50 U/L 11/10/2024 1:05 AM EDT [facility] Alkaline Phosphatase, Plasma 108 40 - 115 U/L 11/10/2024 1:05 AM EDT [facility] Total Bilirubin, Plasma <0.2(L) 0.2 - 1.1 mg/dL 11/10/2024 1:05 AM EDT [facility] eGFRcr 101.4 mL/min/1.7 3m*2 11/10/2024 1:05 AM EDT [facility] Comment:Reported eGFRcr in m L/min/1.73m2 is based the CKD-EPI 2020 equation that does not use a race coefficient. Blood Venous blood specimen / Unknown Venipuncture / Unknown 11/10/2024 12:31 AM EDT 11/10/2024 12:37 AM EDT Nathaly Nowak MD LAB BLOOD ORDERABLES Final Resu lt [facility] [address] [place] [address] * (ABNORMAL) POCT glucose meter (11/09/2024 8:04 [...] Comment 11/09/2024 8:06 PM EDT HEALTHCARE LAB Mechanics Handyman ID Maximiliano Hansen II 11/09/2024 8:06 PM EDT HEALTHCARE LAB Device ID [id number] 11/09/2024 8:06 PM EDT [facility] Specimen Type POC Capillary 11/09/2024 8:06 PM EDT [facility] Blood Capillary blood specimen / Unknown 11/09/2024 8:04 PM EDT 11/09/2024 8:06 PM EDT Nathaly Nowak MD LAB POINT OF CARE TE ST DOCKED DEVICE UNSOLICITED RESULTS Final Result Performing Organization Address City/[facility]/ZIP Co de Phone Number HEALTHCARE LAB [address] [place] [address] * (ABNORMAL) POCT glucose meter (11/09/2024 4:36 [...] 11/09/2024 4:38 PM EDT [facility] Mechanics Handyman ID Kristian Sosa 11/09/2024 4:38 PM EDT HEALTHCARE LAB Device ID [id number] 11/09/2024 4:38 PM EDT HEALTHCARE LAB Specimen Type POC Capillary 11/09/2024 4:38 PM EDT HEALTHCARE LAB Blood Capillary blood specimen / Unknown 11/09/2024 4:36 PM EDT 11/09/2024 4:38 PM EDT us Nathaly Nowak MD LAB POINT OF CARE TE ST DOCKED DEVICE UNSOLICITED RESULTS Final Result Performing Organization Address City/State/[facility] Co de Phone Number HEALTHCARE LAB [address] [place] [address] * PICC SINGLE LUMEN ([employer]) (11/09/2024 1:11 PM EDT) Narrative Estefani Barraza RN - 11/09/2024 1:11 PM EDT Estefani Barraza RN 11/09/2024 1:12 PM Insert PICC line Date/Time: 11/09/2024 1:11 PM Performed by: Estefani Barraza RN Authorized by: Nathaly Nowak MD [place] Protocol: Verbal consent obtained?: Yes Written consent [...] selection rationale: Left pacemaker Catheter Lot #: [id number] Catheter schedule supervisor: The 5th Quarter Catheter placed: Single lumen Catheter size: 4 [...] POCT glucose meter (11/09/2024 11:50 AM EDT) Pathologist [facility] POCT Glucose 127(H) 74 - 99 mg/dL 11/09/2024 11:51 AM EDT [facility] Comment:Accuracy of [...] Comment 11/09/2024 11:51 AM EDT HEALTHCARE LAB Mechanics Handyman ID Kristian Sosa 11/09/2024 11:51 AM EDT HEALTHCARE LAB Device ID [id number] 11/09/2024 11:51 AM EDT HEALTHCARE LAB Specimen Type POC Capillary 11/09/2024 11:51 AM EDT HEALTHCARE LAB Blood Capillary blood specimen / Unknown 11/09/2024 11:50 AM EDT 11/09/2024 11:51 AM EDT Nathaly Nowak MD LAB POINT OF CARE TE ST DOCKED DEVICE UNSOLICITED RESULTS Final Result [facility] [address] [place] [address] * (ABNORMAL) POCT glucose meter (11/09/2024 8:14 [...] Comment 11/09/2024 8:15 AM EDT HEALTHCARE LAB Mechanics Handyman ID Kristian Sosa 11/09/2024 8:15 AM EDT HEALTHCARE LAB Device ID [id number] 11/09/2024 8:15 AM EDT HEALTHCARE LAB Specimen Type POC Capillary 11/09/2024 8:15 AM EDT [facility] Blood Capillary blood specimen / Unknown 11/09/2024 8:14 AM EDT 11/09/2024 8:15 AM EDT Nathaly Nowak MD LAB POINT OF CARE TE ST DOCKED DEVICE UNSOLICITED RESULTS Final Result [facility]ARE [facility] [address] [place] [address] * (ABNORMAL) CBC and Differential (11/09/2024 4:15 AM EDT) Pathologist [facility] WBC Count 10.27 3.70 - 10.30 10*3/uL LAB HEMATOLOGY METHOD 11/09/2024 4:26 AM EDT [facility] RBC Count 3.14(L) 4.60 - 6.10 10*6/uL LAB HEMATOLOGY METHOD 11/09/2024 4:26 AM EDT [facility] HGB 9.2(L) 13.7 - 17.5 g/dL LAB HEMATOLOGY METHOD 11/09/2024 4:26 AM EDT [facility] HCT 28.3(L) 40.0 - 51.0 % LAB HEMATOLOGY METHOD 11/09/2024 4:26 AM EDT [facility] Platelet Count 468(H) 155 - 369 10*3/uL LAB HEMATOLOGY METHOD 11/09/2024 4:26 AM EDT [facility] MCV 90 79 - 98 fL LAB HEMATOLOGY METHOD 11/09/2024 4:26 AM EDT [facility] MCH 29.3 26.0 - 32.0 pg LAB HEMATOLOGY METHOD 11/09/2024 4:26 AM EDT [facility] MCHC 32.5 30.7 - 35.5 g/dL LAB HEMATOLOGY METHOD 11/09/2024 4:26 AM EDT [facility] RDW 13.1 11.5 - 14.5 % LAB HEMATOLOGY METHOD 11/09/2024 4:26 AM EDT [facility] MPV 8.7(L) 8.8 - 12.5 fL LAB HEMATOLOGY METHOD 11/09/2024 4:26 AM EDT [facility] nRBC 0.0 <=0.0 per 100 WBCs LAB HEMATOLOGY METHOD 11/09/2024 4:26 AM EDT [facility] Differential Type Automated LAB HEMATOLOGY METHOD 11/09/2024 4:26 AM EDT [facility] Neutrophils % 77 % LAB HEMATOLOGY METHOD 11/09/2024 4:26 AM EDT [facility] Lymphocytes % 13 % LAB HEMATOLOGY METHOD 11/09/2024 4:26 AM EDT [facility] Monocytes % 8 % LAB HEMATOLOGY METHOD 11/09/2024 4:26 AM EDT [facility] Eosinophils % 1 % LAB HEMATOLOGY METHOD 11/09/2024 4:26 AM EDT [facility] Basophils % 0 % LAB HEMATOLOGY METHOD 11/09/2024 4:26 AM EDT [facility] Immature Granulocytes % 1 % LAB HEMATOLOGY METHOD 11/09/2024 4:26 AM EDT [facility] Neutrophils Absolute 7.97(H) 1.60 - 6.10 10*3/uL LAB HEMATOLOGY METHOD 11/09/2024 4:26 AM EDT [facility] Lymphocytes Absolute 1.32 1.20 - 3.90 10*3/uL LAB HEMATOLOGY METHOD 11/09/2024 4:26 AM EDT [facility] Monocytes Absolute 0.83 0.30 - 0.90 10*3/uL LAB HEMATOLOGY METHOD 11/09/2024 4:26 AM EDT [facility] Eosinophils Absolute 0.07 0.00 - 0.50 10*3/uL LAB HEMATOLOGY METHOD 11/09/2024 4:26 AM EDT [facility] Basophils Absolute 0.03 0.00 - 0.10 10*3/uL LAB HEMATOLOGY METHOD 11/09/2024 4:26 AM EDT [facility] Immature Granulocytes Absolute 0.05 0.00 - 0.06 10*3/uL LAB HEMATOLOGY METHOD 11/09/2024 4:26 AM EDT [facility] Blood Venous blood specimen / Unknown Venipuncture / Unknown 11/09/2024 4:15 AM EDT 11/09/2024 4:18 AM EDT Narrative [facility] - 11/09/2024 4:26 AM EDT Therapeutic decision making should be based on absolute values, rather than percentages. us Nathaly Nowak MD LAB BLOOD ORDERABLES Final Resu lt [facility] [address] [place] [address] * (ABNORMAL) Comprehensive Metabolic Panel, Plasma (11/09/2024 4:15 AM EDT) Glucose, Plasma 171(H) 74 - 99 mg/dL 11/09/2024 4:47 AM EDT [facility] BUN, Plasma 9 8 - 23 mg/dL 11/09/2024 4:47 AM EDT [facility] Creatinine, Plasma 0.67(L) 0.70 - 1.20 mg/dL 11/09/2024 4:47 AM EDT [facility] BUN/Creatinine Ratio 13 11/09/2024 4:47 AM EDT [facility] Sodium, Plasma 134(L) 136 - 145 mmol/L 11/09/2024 4:47 AM EDT [facility] Potassium, Plasma 4.1 3.6 - 4.9 mmol/L 11/09/2024 4:47 AM EDT [facility] Chloride, Plasma 104 97 - 107 mmol/L 11/09/2024 4:47 AM EDT [facility] CO2, Plasma 21(L) 22 - 29 mmol/L 11/09/2024 4:47 AM EDT [facility] Anion Gap 9 6 - 16 mmol/L 11/09/2024 4:47 AM EDT [facility] Total Calcium, Plasma 8.4(L) 8.9 - 10.2 mg/dL 11/09/2024 4:47 AM EDT [facility] Total Protein 5.8(L) 6.3 - 7.9 g/dL 11/09/2024 4:47 AM EDT [facility] Albumin, Plasma 3.2(L) 3.5 - 5.2 g/dL 11/09/2024 4:47 AM EDT [facility] AST, Plasma 18 10 - 50 U/L 11/09/2024 4:47 AM EDT [facility] ALT, Plasma 17 10 - 50 U/L 11/09/2024 4:47 AM EDT [facility] Alkaline Phosphatase, Plasma 110 40 - 115 U/L 11/09/2024 4:47 AM EDT [facility] Total Bilirubin, Plasma <0.2(L) 0.2 - 1.1 mg/dL 11/09/2024 4:47 AM EDT [facility] eGFRcr 103.6 mL/min/1.7 3m*2 11/09/2024 4:47 AM EDT [facility] Comment:Reported eGFRcr in m L/min/1.73m2 is based the CKD-EPI 2020 equation that does not use a race coefficient. Blood Venous blood specimen / Unknown Venipuncture / Unknown 11/09/2024 4:15 AM EDT 11/09/2024 4:18 AM EDT us Nathaly Nowak MD LAB BLOOD ORDERABLES Final Resu lt [facility] [address] [place] [address] * (ABNORMAL) POCT glucose meter (11/09/2024 3:30 AM EDT) POCT Glucose 160(H) 74 - 99 mg/dL 11/09/2024 3:31 AM EDT [facility] Comment:Accuracy of a glucos e [...] Comment 11/09/2024 3:31 AM EDT [facility] Mechanics Handyman ID Maximiliano Hansen II 11/09/2024 3:31 AM EDT [facility] Device ID [id number] 11/09/2024 3:31 AM EDT [facility] Specimen Type POC Capillary 11/09/2024 3:31 AM EDT [facility] Blood Capillary blood specimen / Unknown 11/09/2024 3:30 AM EDT 11/09/2024 3:31 AM EDT us Nathaly Nowak MD LAB POINT OF CARE TE ST DOCKED DEVICE UNSOLICITED RESULTS Final Result Performing Organization Address City/State/[facility] Co de Phone Number [facility] [address] [place] [address] * (ABNORMAL) POCT glucose meter (11/08/2024 7:21 PM EDT) [facility] POCT Glucose 292(H) 74 - 99 mg/dL [...] Comment 11/08/2024 7:22 PM EDT HEALTHCARE LAB Mechanics Handyman ID Maximiliano Hansen II 11/08/2024 7:22 PM EDT HEALTHCARE LAB Device ID [id number] 11/08/2024 7:22 PM EDT HEALTHCARE LAB Specimen Type POC Capillary 11/08/2024 7:22 PM EDT HEALTHCARE LAB Blood Capillary blood specimen / Unknown 11/08/2024 7:21 PM EDT 11/08/2024 7:22 PM EDT us Nathaly Nowak MD LAB POINT OF CARE TE ST DOCKED DEVICE UNSOLICITED RESULTS Final Result Performing Organization Address City/[facility] Co de Phone Number HEALTHCARE LAB [address] [place] [address] * (ABNORMAL) POCT glucose meter (11/08/2024 5:12 PM EDT) [facility] POCT Glucose 178(H) 74 - 99 [...] Comment 11/08/2024 5:14 PM EDT HEALTHCARE LAB Mechanics Handyman ID Estefani Sheth 11/08/2024 5:14 PM EDT HEALTHCARE LAB Device ID [id number] 11/08/2024 5:14 PM EDT [facility] Specimen Type POC Capillary 11/08/2024 5:14 PM EDT [facility] Blood Capillary blood specimen / Unknown 11/08/2024 5:12 PM EDT 11/08/2024 5:14 PM EDT Nathaly Nowak MD LAB POINT OF CARE TE ST DOCKED DEVICE UNSOLICITED RESULTS Final Result Performing Organization Address [facility] Co de Phone Number [facility] [address] [place] [address] * (ABNORMAL) POCT glucose meter (11/08/2024 12:03 PM EDT) [facility] POCT Glucose 191(H) 74 - 99 [...] 11/08/2024 12:05 PM EDT [facility] Mechanics Handyman ID Estefani Sheth 11/08/2024 12:05 PM EDT [facility] Device ID [id number] 11/08/2024 12:05 PM EDT HEALTHCARE LAB Specimen Type POC Capillary 11/08/2024 12:05 PM EDT [facility] Blood Capillary blood specimen / Unknown 11/08/2024 12:03 PM EDT 11/08/2024 12:05 PM EDT Result [facility] Nathaly Nowak MD LAB POINT OF CARE TE ST DOCKED DEVICE UNSOLICITED RESULTS Final Result Performing Organization Address City/[facility]/ZIP Co de Phone Number [facility] [address] [place] [address] * Vancomycin, Peak, Plasma Please draw ~2 hours after 11/08 0600 dose of vancomycin finishes infusing.Consider obtaining level via peripheral stick. If peripheral stick is not feasible, please ensure that line is flushed well prior to drawing level.... (11/08/2024 9:24 AM EDT) [facility] Vancomycin, Peak, Plasma 29.1 20.0 - 40.0 ug/mL 11/08/2024 10:31 AM EDT [facility] Blood Venous blood specimen / Unknown Venipuncture / Unknown 11/08/2024 9:24 AM EDT 11/08/2024 9:47 AM EDT Narrative [facility] - 11/08/2024 10:31 AM EDT Therapeutic Peak level: 20-40ug/mL Supra-therapeutic Peak level: >40 ug/mL Nathaly Nowak MD LAB BLOOD ORDERABLES Final Resu lt Performing Organization Address City/[facility]/ZIP Co de Phone Number [facility] [address] [place] [address] * (ABNORMAL) POCT glucose meter (11/08/2024 8:00 AM EDT) [facility] POCT Glucose 150(H) 74 - 99 [...] Comment 11/08/2024 8:01 AM EDT HEALTHCARE LAB Mechanics Handyman ID Estefani Sheth 11/08/2024 8:01 AM EDT HEALTHCARE LAB Device ID [id number] 11/08/2024 8:01 AM EDT HEALTHCARE LAB Specimen Type POC Capillary 11/08/2024 8:01 AM EDT [facility]ALTHCARE LAB Blood Capillary blood specimen / Unknown 11/08/2024 8:00 AM EDT 11/08/2024 8:01 AM EDT us Nathaly Nowak MD LAB POINT OF CARE TE ST DOCKED DEVICE UNSOLICITED RESULTS Final Result [facility] [address] [place] [address] * (ABNORMAL) CBC and Differential (11/08/2024 4:39 AM EDT) [facility] WBC Count 9.18 3.70 - 10.30 10*3/uL LAB HEMATOLOGY METHOD 11/08/2024 4:58 AM EDT [facility] RBC Count 3.11(L) 4.60 - 6.10 10*6/uL LAB HEMATOLOGY METHOD 11/08/2024 4:58 AM EDT [facility] HGB 9.2(L) 13.7 - 17.5 g/dL LAB HEMATOLOGY METHOD 11/08/2024 4:58 AM EDT [facility] HCT 28.9(L) 40.0 - 51.0 % LAB HEMATOLOGY METHOD 11/08/2024 4:58 AM EDT [facility] Platelet Count 485(H) 155 - 369 10*3/uL LAB HEMATOLOGY METHOD 11/08/2024 4:58 AM EDT [facility] MCV 93 79 - 98 fL LAB HEMATOLOGY METHOD 11/08/2024 4:58 AM EDT [facility] MCH 29.6 26.0 - 32.0 pg LAB HEMATOLOGY METHOD 11/08/2024 4:58 AM EDT [facility] MCHC 31.8 30.7 - 35.5 g/dL LAB HEMATOLOGY METHOD 11/08/2024 4:58 AM EDT [facility] RDW 13.0 11.5 - 14.5 % LAB HEMATOLOGY METHOD 11/08/2024 4:58 AM EDT [facility] MPV 8.8 8.8 - 12.5 fL LAB HEMATOLOGY METHOD 11/08/2024 4:58 AM EDT [facility] nRBC 0.0 <=0.0 per 100 WBCs LAB HEMATOLOGY METHOD 11/08/2024 4:58 AM EDT [facility] Differential Type Automated LAB HEMATOLOGY METHOD 11/08/2024 4:58 AM EDT [facility] Neutrophils % 69 % LAB HEMATOLOGY METHOD 11/08/2024 4:58 AM EDT [facility] Lymphocytes % 17 % LAB HEMATOLOGY METHOD 11/08/2024 4:58 AM EDT [facility] Monocytes % 10 % LAB HEMATOLOGY METHOD 11/08/2024 4:58 AM EDT [facility] Eosinophils % 2 % LAB HEMATOLOGY METHOD 11/08/2024 4:58 AM EDT [facility] Basophils % 1 % LAB HEMATOLOGY METHOD 11/08/2024 4:58 AM EDT [facility] Immature Granulocytes % 1 % LAB HEMATOLOGY METHOD 11/08/2024 4:58 AM EDT [facility] Neutrophils Absolute 6.40(H) 1.60 - 6.10 10*3/uL LAB HEMATOLOGY METHOD 11/08/2024 4:58 AM EDT [facility] Lymphocytes Absolute 1.59 1.20 - 3.90 10*3/uL LAB HEMATOLOGY METHOD 11/08/2024 4:58 AM EDT [facility] Monocytes Absolute 0.87 0.30 - 0.90 10*3/uL LAB HEMATOLOGY METHOD 11/08/2024 4:58 AM EDT [facility] Eosinophils Absolute 0.22 0.00 - 0.50 10*3/uL LAB HEMATOLOGY METHOD 11/08/2024 4:58 AM EDT [facility] Basophils Absolute 0.05 0.00 - 0.10 10*3/uL LAB HEMATOLOGY METHOD 11/08/2024 4:58 AM EDT [facility] Immature Granulocytes Absolute 0.05 0.00 - 0.06 10*3/uL LAB HEMATOLOGY METHOD 11/08/2024 4:58 AM EDT [facility] Blood Venous blood specimen / Unknown Venipuncture / Unknown 11/08/2024 4:39 AM EDT 11/08/2024 4:49 AM EDT Narrative [facility] - 11/08/2024 4:58 AM EDT Therapeutic decision making should be based on absolute values, rather than percentages. us Nathaly Nowak MD LAB BLOOD ORDERABLES Final Resu lt [facility] [address] [place] [address] * (ABNORMAL) Comprehensive Metabolic Panel, Plasma (11/08/2024 4:39 AM EDT) Glucose, Plasma 255(H) 74 - 99 mg/dL 11/08/2024 5:20 AM EDT [facility] BUN, Plasma 10 8 - 23 mg/dL 11/08/2024 5:20 AM EDT [facility] Creatinine, Plasma 0.75 0.70 - 1.20 mg/dL 11/08/2024 5:20 AM EDT [facility] BUN/Creatinine Ratio 13 11/08/2024 5:20 AM EDT [facility] Sodium, Plasma 133(L) 136 - 145 mmol/L 11/08/2024 5:20 AM EDT [facility] Potassium, Plasma 5.2(H) 3.6 - 4.9 mmol/L 11/08/2024 5:20 AM EDT [facility] Chloride, Plasma 105 97 - 107 mmol/L 11/08/2024 5:20 AM EDT [facility] CO2, Plasma 20(L) 22 - 29 mmol/L 11/08/2024 5:20 AM EDT [facility] Anion Gap 8 6 - 16 mmol/L 11/08/2024 5:20 AM EDT [facility] Total Calcium, Plasma 7.7(L) 8.9 - 10.2 mg/dL 11/08/2024 5:20 AM EDT [facility] Total Protein 5.6(L) 6.3 - 7.9 g/dL 11/08/2024 5:20 AM EDT [facility] Albumin, Plasma 2.8(L) 3.5 - 5.2 g/dL 11/08/2024 5:20 AM EDT [facility] AST, Plasma 20 10 - 50 U/L 11/08/2024 5:20 AM EDT [facility] Comment:Hemolyzed, result ma y be falsely increased. ALT, Plasma 14 10 - 50 U/L 11/08/2024 5:20 AM EDT [facility] Alkaline Phosphatase, Plasma 119(H) 40 - 115 U/L 11/08/2024 5:20 AM EDT [facility] Total Bilirubin, Plasma <0.2(L) 0.2 - 1.1 mg/dL 11/08/2024 5:20 AM EDT [facility] eGFRcr 100.1 mL/min/1.7 3m*2 11/08/2024 5:20 AM EDT [facility] Comment:Reported eGFRcr in m L/min/1.73m2 is based the CKD-EPI 2020 equation that does not use a race coefficient. Blood Venous blood specimen / Unknown Venipuncture / Unknown 11/08/2024 4:39 AM EDT 11/08/2024 4:43 AM EDT us Nathaly Nowak MD LAB BLOOD ORDERABLES Final Resu lt [facility] [address] [place] [address] * Vancomycin, Trough, Plasma Please draw ~30 minutes prior to dose due at 0600 on 11/08. Please do NOThold dose awaiting level to return. Consider obtaining level via peripheral stick. If peripheral stick is not feasible, please ensure that line is... (11/08/2024 4:39 AM EDT) Vancomycin, Trough, Plasma 18.7 10.0 - 20.0 ug/mL 11/08/2024 5:22 AM EDT [facility] Blood Venous blood specimen / Unknown Venipuncture / Unknown 11/08/2024 4:39 AM EDT 11/08/2024 4:43 AM EDT Narrative [facility] - 11/08/2024 5:22 AM EDT Therapeutic Trough level: 10-20ug/mL Supra-therapeutic Trough level: >20 ug/mL us Nathaly Nowak MD LAB BLOOD ORDERABLES Final Resu lt Performing Organization Address City/[facility]/ZIP Co de Phone Number [facility] [address] [place] [address] * (ABNORMAL) POCT glucose meter (11/07/2024 7:26 [...] Comment 11/07/2024 7:28 PM EDT HEALTHCARE LAB Mechanics Handyman ID Maximiliano Hansen II 11/07/2024 7:28 PM EDT HEALTHCARE LAB Device ID [id number] 11/07/2024 7:28 PM EDT [facility] Specimen Type POC Capillary 11/07/2024 7:28 PM EDT [facility] Blood Capillary blood specimen / Unknown 11/07/2024 7:26 PM EDT 11/07/2024 7:28 PM EDT us Nathaly Nowak MD LAB POINT OF CARE TE ST DOCKED DEVICE UNSOLICITED RESULTS Final Result [facility] [address] [place] [address] * (ABNORMAL) POCT glucose meter (11/07/2024 5:51 [...] Comment 11/07/2024 5:52 PM EDT HEALTHCARE LAB Mechanics Handyman ID Brigitte Castellon 11/07/2024 5:52 PM EDT [facility] Device ID [id number] 11/07/2024 5:52 PM EDT HEALTHCARE LAB Specimen Type POC Capillary 11/07/2024 5:52 PM EDT HEALTHCARE LAB Blood Capillary blood specimen / Unknown 11/07/2024 5:51 PM EDT 11/07/2024 5:52 PM EDT us Nathaly Nowak MD LAB POINT OF CARE TE ST DOCKED DEVICE UNSOLICITED RESULTS Final Result Performing Organization Address City/State/[facility] Co de Phone Number HEALTHCARE LAB [address] [place] [address] * (ABNORMAL) POCT glucose meter (11/07/2024 4:47 [...] Comment 11/07/2024 4:48 PM EDT HEALTHCARE LAB Mechanics Handyman ID Estefani Sheth 11/07/2024 4:48 PM EDT HEALTHCARE LAB Device ID [id number] 11/07/2024 4:48 PM EDT HEALTHCARE LAB Specimen Type POC Capillary 11/07/2024 4:48 PM EDT HEALTHCARE LAB Blood Capillary blood specimen / Unknown 11/07/2024 4:47 PM EDT 11/07/2024 4:48 PM EDT us Nathaly M She MD LAB POINT OF CARE TE ST DOCKED DEVICE UNSOLICITED RESULTS Final Result Performing Organization Address City/[facility]/ZIP Co de Phone Number HEALTHCARE LAB [address] [place] [address] * (ABNORMAL) POCT glucose meter (11/07/2024 12:22 PM EDT) Pathologist [facility] POCT Glucose 172(H) 74 - 99 mg/dL [...] for testing. Comment 11/07/2024 12:24 PM EDT [facility] Mechanics Handyman ID Estefani Sheth 11/07/2024 12:24 PM EDT HEALTHCARE LAB Device ID [id number] 11/07/2024 12:24 PM EDT [facility] Specimen Type POC Capillary 11/07/2024 12:24 PM EDT [facility] Blood Capillary blood specimen / Unknown 11/07/2024 12:22 PM EDT 11/07/2024 12:24 PM EDT Nathaly Nowak MD LAB POINT OF CARE TE ST DOCKED DEVICE UNSOLICITED RESULTS Final Result Performing Organization Address City/[facility]/ZIP Co de Phone Number HEALTHCARE [facility] [address] [place] [address] * (ABNORMAL) CBC and Differential (11/07/2024 11:37 AM EDT) Pathologist [facility] WBC Count 9.96 3.70 - 10.30 10*3/uL LAB HEMATOLOGY METHOD 11/07/2024 12:33 PM EDT [facility] RBC Count 2.81(L) 4.60 - 6.10 10*6/uL LAB HEMATOLOGY METHOD 11/07/2024 12:33 PM EDT [facility] HGB 8.5(L) 13.7 - 17.5 g/dL LAB HEMATOLOGY METHOD 11/07/2024 12:33 PM EDT [facility] HCT 26.0(L) 40.0 - 51.0 % LAB HEMATOLOGY METHOD 11/07/2024 12:33 PM EDT [facility] Platelet Count 524(H) 155 - 369 10*3/uL LAB HEMATOLOGY METHOD 11/07/2024 12:33 PM EDT [facility] MCV 93 79 - 98 fL LAB HEMATOLOGY METHOD 11/07/2024 12:33 PM EDT [facility] MCH 30.2 26.0 - 32.0 pg LAB HEMATOLOGY METHOD 11/07/2024 12:33 PM EDT [facility] MCHC 32.7 30.7 - 35.5 g/dL LAB HEMATOLOGY METHOD 11/07/2024 12:33 PM EDT [facility] RDW 13.1 11.5 - 14.5 % LAB HEMATOLOGY METHOD 11/07/2024 12:33 PM EDT [facility] MPV 9.0 8.8 - 12.5 fL LAB HEMATOLOGY METHOD 11/07/2024 12:33 PM EDT [facility] nRBC 0.0 <=0.0 per 100 WBCs LAB HEMATOLOGY METHOD 11/07/2024 12:33 PM EDT [facility] Differential Type Automated LAB HEMATOLOGY METHOD 11/07/2024 12:33 PM EDT [facility] Neutrophils % 72 % LAB HEMATOLOGY METHOD 11/07/2024 12:33 PM EDT [facility] Lymphocytes % 17 % LAB HEMATOLOGY METHOD 11/07/2024 12:33 PM EDT [facility] Monocytes % 9 % LAB HEMATOLOGY METHOD 11/07/2024 12:33 PM EDT [facility] Eosinophils % 1 % LAB HEMATOLOGY METHOD 11/07/2024 12:33 PM EDT [facility] Basophils % 1 % LAB HEMATOLOGY METHOD 11/07/2024 12:33 PM EDT [facility] Immature Granulocytes % 0 % LAB HEMATOLOGY METHOD 11/07/2024 12:33 PM EDT [facility] Neutrophils Absolute 7.19(H) 1.60 - 6.10 10*3/uL LAB HEMATOLOGY METHOD 11/07/2024 12:33 PM EDT [facility] Lymphocytes Absolute 1.66 1.20 - 3.90 10*3/uL LAB HEMATOLOGY METHOD 11/07/2024 12:33 PM EDT [facility] Monocytes Absolute 0.88 0.30 - 0.90 10*3/uL LAB HEMATOLOGY METHOD 11/07/2024 12:33 PM EDT [facility] Eosinophils Absolute 0.14 0.00 - 0.50 10*3/uL LAB HEMATOLOGY METHOD 11/07/2024 12:33 PM EDT [facility] Basophils Absolute 0.05 0.00 - 0.10 10*3/uL LAB HEMATOLOGY METHOD 11/07/2024 12:33 PM EDT [facility] Immature Granulocytes Absolute 0.04 0.00 - 0.06 10*3/uL LAB HEMATOLOGY METHOD 11/07/2024 12:33 PM EDT [facility] Blood Venous blood specimen / Unknown Venipuncture / Unknown 11/07/2024 11:37 AM EDT 11/07/2024 12:24 PM EDT Narrative [facility] - 11/07/2024 12:33 PM EDT Therapeutic decision making should be based on absolute values, rather than percentages. us Nathaly Nowak MD LAB BLOOD ORDERABLES Final Resu lt [facility] [address] [place] [address] * (ABNORMAL) Comprehensive Metabolic Panel, Plasma (11/07/2024 11:37 AM EDT) Glucose, Plasma 173(H) 74 - 99 mg/dL 11/07/2024 1:31 PM EDT [facility] BUN, Plasma 13 8 - 23 mg/dL 11/07/2024 1:31 PM EDT [facility] Creatinine, Plasma 0.92 0.70 - 1.20 mg/dL 11/07/2024 1:31 PM EDT [facility] BUN/Creatinine Ratio 14 11/07/2024 1:31 PM EDT [facility] Sodium, Plasma 136 136 - 145 mmol/L 11/07/2024 1:31 PM EDT [facility] Potassium, Plasma 4.0 3.6 - 4.9 mmol/L 11/07/2024 1:31 PM EDT [facility] Chloride, Plasma 104 97 - 107 mmol/L 11/07/2024 1:31 PM EDT [facility] CO2, Plasma 23 22 - 29 mmol/L 11/07/2024 1:31 PM EDT [facility] Anion Gap 9 6 - 16 mmol/L 11/07/2024 1:31 PM EDT [facility] Total Calcium, Plasma 7.8(L) 8.9 - 10.2 mg/dL 11/07/2024 1:31 PM EDT [facility] Total Protein 5.7(L) 6.3 - 7.9 g/dL 11/07/2024 1:31 PM EDT [facility] Albumin, Plasma 3.0(L) 3.5 - 5.2 g/dL 11/07/2024 1:31 PM EDT [facility] AST, Plasma 15 10 - 50 U/L 11/07/2024 1:31 PM EDT [facility] ALT, Plasma 16 10 - 50 U/L 11/07/2024 1:31 PM EDT [facility] Alkaline Phosphatase, Plasma 119(H) 40 - 115 U/L 11/07/2024 1:31 PM EDT [facility] Total Bilirubin, Plasma <0.2(L) 0.2 - 1.1 mg/dL 11/07/2024 1:31 PM EDT [facility] eGFRcr 92.3 mL/min/1.7 3m*2 11/07/2024 1:31 PM EDT [facility] Comment:Reported eGFRcr in m L/min/1.73m2 is based the CKD-EPI 2020 equation that does not use a race coefficient. Blood Venous blood specimen / Unknown Venipuncture / Unknown 11/07/2024 11:37 AM EDT 11/07/2024 12:23 PM EDT us Nathaly Nowak MD LAB BLOOD ORDERABLES Final Resu lt [facility] [address] [place] [address] * Type and Screen (11/07/2024 11:37 AM EDT) Pathologist [facility] ABO/Rh A Negative 11/06/2024 8:56 AM EDT BLOOD BANK Antibody Screen Negative 11/06/2024 8:56 AM EDT BLOOD BANK Specimen Expiration 11/10/2024 23:59 11/06/2024 8:56 AM EDT BLOOD BANK Blood Venous blood specimen / Unknown Venipuncture / Unknown 11/07/2024 11:37 AM EDT 11/07/2024 11:50 AM EDT Sabrina Mckeon [place] LAB BLOOD BANK TEST ORDERABLES F inal Result Performing Organization Address City/[facility]/ZIP Co de Phone Number BLOOD BANK [address] [place] [address] * (ABNORMAL) POCT glucose meter (11/07/2024 10:34 AM EDT) [facility] POCT Glucose 199(H) 74 - 99 [...] Comment 11/07/2024 10:36 AM EDT HEALTHCARE LAB Mechanics Handyman ID Joy Iraheta 11/07/2024 10:36 AM EDT HEALTHCARE LAB Device ID [id number] 11/07/2024 10:36 AM EDT [facility] Specimen Type POC Capillary 11/07/2024 10:36 AM EDT [facility] Blood Capillary blood specimen / Unknown 11/07/2024 10:34 AM EDT 11/07/2024 10:36 AM EDT Nathaly Nowak MD LAB POINT OF CARE TE ST DOCKED DEVICE UNSOLICITED RESULTS Final Result [facility] [address] [place] [address] * (ABNORMAL) POCT glucose meter (11/07/2024 9:34 [...] Comment 11/07/2024 9:36 AM EDT HEALTHCARE LAB Mechanics Handyman ID Brigitte Castellon 11/07/2024 9:36 AM EDT HEALTHCARE LAB Device ID [id number] 11/07/2024 9:36 AM EDT HEALTHCARE LAB Specimen Type POC Capillary 11/07/2024 9:36 AM EDT HEALTHCARE LAB Blood Capillary blood specimen / Unknown 11/07/2024 9:34 AM EDT 11/07/2024 9:36 AM EDT us Nathaly Nowak MD LAB POINT OF CARE TE ST DOCKED DEVICE UNSOLICITED RESULTS Final Result Performing Organization Address City/State/[facility] Co de Phone Number HEALTHCARE LAB [address] [place] [address] * (ABNORMAL) POCT glucose meter (11/07/2024 8:20 [...] Comment 11/07/2024 8:22 AM EDT HEALTHCARE LAB Mechanics Handyman ID Estefani Sheth 11/07/2024 8:22 AM EDT [facility] Device ID [id number] 11/07/2024 8:22 AM EDT HEALTHCARE LAB Specimen Type POC Capillary 11/07/2024 8:22 AM EDT [facility] Blood Capillary blood specimen / Unknown 11/07/2024 8:20 AM EDT 11/07/2024 8:22 AM EDT Nathaly Nowak MD LAB POINT OF CARE TE ST DOCKED DEVICE UNSOLICITED RESULTS Final Result Performing Organization Address City/[facility]/ZIP Co de Phone Number [facility] [address] [place] [address] * (ABNORMAL) POCT glucose meter (11/07/2024 7:21 [...] for testing. Comment 11/07/2024 7:22 AM EDT [facility] Mechanics Handyman ID [email or web address] 11/07/2024 7:22 AM EDT [facility] Device ID [id number] 11/07/2024 7:22 AM EDT [facility] Specimen Type POC Capillary 11/07/2024 7:22 AM EDT [facility] Blood Capillary blood specimen / Unknown 11/07/2024 7:21 AM EDT 11/07/2024 7:22 AM EDT Nathaly Nowak MD LAB POINT OF CARE TE ST DOCKED DEVICE UNSOLICITED RESULTS Final Result [facility] [address] [place] [id number] * (ABNORMAL) POCT glucose meter (11/07/2024 6:25 [...] Comment 11/07/2024 6:27 AM EDT HEALTHCARE LAB Mechanics Handyman ID Nelda Gerber 11/08/19 6:27 AM EDT HEALTHCARE LAB Device ID [id number] 11/07/2024 6:27 AM EDT HEALTHCARE LAB Specimen Type POC Capillary 11/07/2024 6:27 AM EDT HEALTHCARE LAB Blood Capillary blood specimen / Unknown 11/07/2024 6:25 AM EDT 11/07/2024 6:27 AM EDT us Nathaly Nowak MD LAB POINT OF CARE TE ST DOCKED DEVICE UNSOLICITED RESULTS Final Result Performing Organization Address City/State/[facility] Co de Phone Number HEALTHCARE LAB [address] [place] [address] * (ABNORMAL) POCT glucose meter (11/07/2024 5:03 [...] Comment 11/07/2024 5:08 AM EDT [facility] Mechanics Handyman ID Nelda Gerber 11/08/19 5:08 AM EDT [facility]ALTH[facility]ARE LAB Device ID [id number] 11/07/2024 5:08 AM EDT [facility] Specimen Type POC Capillary 11/07/2024 5:08 AM EDT [facility] Blood Capillary blood specimen / Unknown 11/07/2024 5:03 AM EDT 11/07/2024 5:08 AM EDT us Nathaly M She MD LAB POINT OF CARE TE ST DOCKED DEVICE UNSOLICITED RESULTS Final Result [facility] [address] [place] [address] * (ABNORMAL) POCT glucose meter (11/07/2024 4:16 [...] for testing. Comment 11/07/2024 4:18 AM EDT [facility] LAB Mechanics Handyman ID Nelda Gerber 11/08/19 4:18 AM EDT [facility] LAB Device ID [id number] 11/07/2024 4:18 AM EDT [facility] LAB Specimen Type POC Capillary 11/07/2024 4:18 AM EDT [facility] LAB Blood Capillary blood specimen / Unknown 11/07/2024 4:16 AM EDT 11/07/2024 4:18 AM EDT Nathaly Nowak MD LAB POINT OF CARE TE ST DOCKED DEVICE UNSOLICITED RESULTS Final Result Performing Organization Address City/[facility]/ZIP Co de Phone Number [facility] [address] [place] [address] * (ABNORMAL) POCT glucose meter (11/07/2024 3:21 [...] Comment 11/07/2024 3:23 AM EDT [facility] Mechanics Handyman ID Nelda Gerber 11/08/19 25 3:23 AM EDT HEALTHCARE LAB Device ID [id number] 11/07/2024 3:23 AM EDT [facility] Specimen Type POC Capillary 11/07/2024 3:23 AM EDT [facility] Blood Capillary blood specimen / Unknown 11/07/2024 3:21 AM EDT 11/07/2024 3:23 AM EDT Nathaly Nowak MD LAB POINT OF CARE TE ST DOCKED DEVICE UNSOLICITED RESULTS Final Result Performing Organization Address City/[facility]/ZIP Co de Phone Number [facility] [address] [place] [address] * (ABNORMAL) POCT glucose meter (11/07/2024 2:10 [...] Comment 11/07/2024 2:12 AM EDT [facility] Mechanics Handyman ID Nelda Gerber 11/08/19 2:12 AM EDT HEALTHCARE LAB Device ID [id number] 11/07/2024 2:12 AM EDT HEALTHCARE LAB Specimen Type POC Capillary 11/07/2024 2:12 AM EDT HEALTHCARE LAB Blood Capillary blood specimen / Unknown 11/07/2024 2:10 AM EDT 11/07/2024 2:12 AM EDT Nathaly Nowak MD LAB POINT OF CARE TE ST DOCKED DEVICE UNSOLICITED RESULTS Final Result Performing Organization Address City/[facility]/ZIP Co de Phone Number HEALTHCARE LAB [address] [place] [address] * (ABNORMAL) POCT glucose meter (11/07/2024 1:08 AM EDT) [facility] POCT Glucose 135(H) 74 - 99 mg/dL [...] Comment 11/07/2024 1:10 AM EDT HEALTHCARE LAB Mechanics Handyman ID Nelda Gerber 11/08/19 1:10 AM EDT [facility] Device ID [id number] 11/07/2024 1:10 AM EDT HEALTHCARE LAB Specimen Type POC Capillary 11/07/2024 1:10 AM EDT [facility] Blood Capillary blood specimen / Unknown 11/07/2024 1:08 AM EDT 11/07/2024 1:10 AM EDT Nathaly Nowak MD LAB POINT OF CARE TE ST DOCKED DEVICE UNSOLICITED RESULTS Final Result Performing Organization Address City/State/[facility] Co de Phone Number HEALTHCARE LAB [address] [place] [address] * (ABNORMAL) POCT glucose meter (11/07/2024 12:10 AM EDT) [facility] POCT Glucose 127(H) 74 - 99 mg/dL 11/07/2024 12:13 AM EDT [facility] HEALTHCARE LAB Comment:Accuracy of a glucos e [...] 11/07/2024 12:13 AM EDT [facility] Mechanics Handyman ID Nelda Gerber 11/08/19 12:13 AM EDT [employer] HEALTHCARE LAB Device ID [id number] 11/07/2024 12:13 AM EDT HEALTHCARE LAB Specimen Type POC Capillary 11/07/2024 12:13 AM EDT HEALTHCARE LAB Blood Capillary blood specimen / Unknown 11/07/2024 12:10 AM EDT 11/07/2024 12:13 AM EDT Nathaly Nowak MD LAB POINT OF CARE TE ST DOCKED DEVICE UNSOLICITED RESULTS Final Result Performing Organization Address City/[facility]/ZIP Co de Phone Number HEALTHCARE LAB [address] [place] [address] * (ABNORMAL) POCT glucose meter (11/06/2024 11:14 [...] for testing. Comment 11/06/2024 11:16 PM EDT [facility] LAB Mechanics Handyman ID Nelda Gerber 11/07/19 11:16 PM EDT HEALTHCARE LAB Device ID [id number] 11/06/2024 11:16 PM EDT [facility] Specimen Type POC Capillary 11/06/2024 11:16 PM EDT [facility] Blood Capillary blood specimen / Unknown 11/06/2024 11:14 PM EDT 11/06/2024 11:16 PM EDT Nathaly Nowak MD LAB POINT OF CARE TE ST DOCKED DEVICE UNSOLICITED RESULTS Final Result [facility]ARE LAB [address] [place] [address] * (ABNORMAL) POCT glucose meter (11/06/2024 10:07 [...] Comment 11/06/2024 10:09 PM EDT HEALTHCARE LAB Mechanics Handyman ID Nelda Gerber 11/07/19 10:09 PM EDT HEALTHCARE LAB Device ID [id number] 11/06/2024 10:09 PM EDT HEALTHCARE LAB Specimen Type POC Capillary 11/06/2024 10:09 PM EDT HEALTHCARE LAB Blood Capillary blood specimen / Unknown 11/06/2024 10:07 PM EDT 11/06/2024 10:09 PM EDT Nathaly Nowak MD LAB POINT OF CARE TE ST DOCKED DEVICE UNSOLICITED RESULTS Final Result HE[facility]ARE LAB [address] [place] [address] * (ABNORMAL) POCT glucose meter (11/06/2024 8:22 PM EDT) [facility] POCT Glucose 256(H) 74 - 99 mg/dL [...] Comment 11/06/2024 8:25 PM EDT HEALTHCARE LAB Mechanics Handyman ID Nelda Gerber 11/07/19 8:25 PM EDT HEALTHCARE LAB Device ID [id number] 11/06/2024 8:25 PM EDT HEALTHCARE LAB Specimen Type POC Capillary 11/06/2024 8:25 PM EDT HEALTHCARE LAB Blood Capillary blood specimen / Unknown 11/06/2024 8:22 PM EDT 11/06/2024 8:25 PM EDT Nathaly Nowak MD LAB POINT OF CARE TE ST DOCKED DEVICE UNSOLICITED RESULTS Final Result [facility] [address] [place] [address] * (ABNORMAL) POCT glucose meter (11/06/2024 7:31 PM EDT) [facility] POCT Glucose 359(H) 74 - 99 mg/dL [...] for testing. Comment 11/06/2024 7:32 PM EDT [facility] Mechanics Handyman ID Nelda Gerber 11/07/19 7:32 PM EDT HEALTHCARE LAB Device ID [id number] 11/06/2024 7:32 PM EDT [facility] Specimen Type POC Capillary 11/06/2024 7:32 PM EDT [facility] Blood Capillary blood specimen / Unknown 11/06/2024 7:31 PM EDT 11/06/2024 7:32 PM EDT Nathaly Nowak MD LAB POINT OF CARE TE ST DOCKED DEVICE UNSOLICITED RESULTS Final Result Performing Organization Address City/[facility]/ZIP Co de Phone Number [facility] [address] [place] [address] * (ABNORMAL) POCT glucose meter (11/06/2024 6:15 PM EDT) [facility] POCT Glucose 368(H) 74 - 99 mg/dL [...] 11/06/2024 6:17 PM EDT [facility] Mechanics Handyman ID Estefani Sheth 11/06/2024 6:17 PM EDT HEALTHCARE LAB Device ID [id number] 11/06/2024 6:17 PM EDT HEALTHCARE LAB Specimen Type POC Capillary 11/06/2024 6:17 PM EDT HEALTHCARE LAB Blood Capillary blood specimen / Unknown 11/06/2024 6:15 PM EDT 11/06/2024 6:17 PM EDT Nathaly Nowak MD LAB POINT OF CARE TE ST DOCKED DEVICE UNSOLICITED RESULTS Final Result Performing Organization Address City/[facility]/ZIP Co de Phone Number [facility] [address] [place] [address] * (ABNORMAL) POCT glucose meter (11/06/2024 4:57 PM EDT) [facility] POCT Glucose 417(H) 74 - 99 mg/dL 11/06/2024 4:58 PM EDT HEALTHCARE LAB Comment:Accuracy of a [...] for testing. Comment 11/06/2024 4:58 PM EDT [facility] Mechanics Handyman ID Estefani Sheth 11/06/2024 4:58 PM EDT HEALTHCARE LAB Device ID [id number] 11/06/2024 4:58 PM EDT HEALTHCARE LAB Specimen Type POC Capillary 11/06/2024 4:58 PM EDT HEALTHCARE LAB Blood Capillary blood specimen / Unknown 11/06/2024 4:57 PM EDT 11/06/2024 4:58 PM EDT Nathaly Nowak MD LAB POINT OF CARE TE ST DOCKED DEVICE UNSOLICITED RESULTS Final Result Performing Organization Address City/[facility]/ZIP Co de Phone Number HEALTHCARE LAB [address] [place] [address] * (ABNORMAL) POCT glucose meter (11/06/2024 2:08 PM EDT) [facility] POCT Glucose 253(H) 74 - 99 [...] Comment 11/06/2024 2:09 PM EDT HEALTHCARE LAB Mechanics Handyman ID Brigitte Castellon 11/06/2024 2:09 PM EDT HEALTHCARE LAB Device ID [id number] 11/06/2024 2:09 PM EDT HEALTHCARE LAB Specimen Type POC Capillary 11/06/2024 2:09 PM EDT HEALTHCARE LAB Blood Capillary blood specimen / Unknown 11/06/2024 2:08 PM EDT 11/06/2024 2:09 PM EDT Nathaly Nowak MD LAB POINT OF CARE TE ST DOCKED DEVICE UNSOLICITED RESULTS Final Result Performing Organization Address City/State/[facility] Co de Phone Number HEALTHCARE LAB [address] [place] [address] * (ABNORMAL) POCT glucose meter (11/06/2024 12:27 PM EDT) [facility] POCT Glucose 228(H) 74 - 99 [...] Comment 11/06/2024 12:28 PM EDT HEALTHCARE LAB Mechanics Handyman ID Jacinta Galloway 11/06/2024 12:28 PM EDT HEALTHCARE LAB Device ID [id number] 11/06/2024 12:28 PM EDT HEALTHCARE LAB Specimen Type POC Capillary 11/06/2024 12:28 PM EDT HEALTHCARE LAB Blood Capillary blood specimen / Unknown 11/06/2024 12:27 PM EDT 11/06/2024 12:28 PM EDT Nathaly Nowak MD LAB POINT OF CARE TE ST DOCKED DEVICE UNSOLICITED RESULTS Final Result Performing Organization Address City/[facility]/ZIP Co de Phone Number [facility] [address] [place] [address] * (ABNORMAL) Fungal Culture, Tissue and ISIDRO (11/06/2024 11:34 AM EDT) Culture Reading Mycological 4 Weeks Rare Rolfe Sana parapsilosis (A) 12/05/2024 8:36 AM EDT [facility] Comment: This isolate has been identified using the FDA Approved HelioVolter CA System The organism value for this result has been updated. These results have been appended to the previously preliminary verified report. Edited result: Previously reported as Yeast on 11/11/2024 at 1317 EDT. ISIDRO No fungal elements seen 12/05/2024 8:36 AM EDT [facility] Tissue Topography unknown [...] results. Nathaly Nowak MD LAB MICROBIOLOGY - GENERAL ORDE RABONEIDA Final Result Performing Organization Address City/[facility]/ZIP Co de Phone Number [facility] [address] [place] [address] * (ABNORMAL) Tissue Culture and Gram Stain (11/06/2024 11:34 AM EDT) Culture Moderate Growth 7:35 AM EDT [facility] Culture 2+ Enterobacter cloacae complex(A) ANGÉLICA 11/15/2024 7:35 AM EDT [facility] Comment: This isolate has been identified using the FDA Approved MALDI Ambrxyper CA System The organism value for this result has been updated. These results have been appended to the previously preliminary verified report. Edited result: Previously reported as Gram Negative Jesus on 11/07/2024 at 1434 EDT. Culture 2+ Streptococcus mitis/oralis group(A) ANGÉLICA 11/15/2024 7:35 AM EDT [facility] Comment: This isolate has been identified using the FDA Approved MALDI Ambrxyper CA System The organism value for this result has been updated. These results have been appended to the previously preliminary verified report. Culture 2+ Pasteurella stomatis(A) ANGÉLICA 11/15/2024 7:35 AM EDT [facility] Comment: This result was determined by MALDI tof mass spectrometry using the tracx database and is for research use only. The organism value for this result has been updated. These results have been appended to the previously preliminary verified report. Gram Stain Result Few Gram negative rods(A) 11/15/2024 7:35 AM EDT [facility] Gram Stain Result Moderate Polymorphonuclear leukocytes(A) 11/15/2024 7:35 AM EDT [facility] Gram Stain Result Few Gram positive cocci in pairs(A) 11/15/2024 7:35 AM EDT [facility] Tissue Topography unknown / Unknown 11/06/2024 11:34 AM EDT 11/06/2024 12:18 PM EDT Comment:Pre-op diagnosis: Surgical wound infection [T81.49XA] Narrative [facility] - 11/15/2024 7:35 [...] GENERAL ORDAna FRITZ Edited Result - Final [facility] [address] [place] [address] * (ABNORMAL) Anaerobic Culture (11/06/2024 11:34 AM EDT) Culture No anaerobes isolated 11/14/2024 1:25 PM EDT [facility] Culture Staphylococcus pseudintermedius( A) 11/14/2024 1:25 PM EDT [facility] Comment: This result was determined by MALDI tof mass spectrometry using the tracx database and is for research use only. This is an appended report. These results have been appended to a previously final verified report. Tissue Topography unknown / Unknown 11/06/2024 11:34 AM EDT 11/06/2024 12:18 PM EDT Comment:Pre-op diagnosis: Surgical wound infection [T81.49XA] Narrative [facility] - 11/14/2024 1:25 [...] ug/ml: Susceptible Nathaly Nowak MD LAB MICROBIOLOGY [facility] LAM Edited Result - Final Performing Organization Address [facility] [place] [address] * (ABNORMAL) Routine Culture and Gram Stain (11/06/2024 11:29 AM EDT) Culture Moderate Growth 5:29 PM EDT [facility] Culture Enterobacter cloacae complex(A) 11/08/2024 5:29 PM EDT [facility] Comment: This isolate has been identified using the FDA Approved Double Encore CA System For susceptibility results refer to: - [id number] The organism value for this result has been updated. These results have been appended to the previously preliminary verified report. Gram Stain Result No polymorphonuclear leukocytes seen 11/08/2024 5:29 PM EDT [facility] Gram Stain Result No organisms seen 11/08/2024 5:29 PM EDT [facility] Swab Topography unknown / Unknown 11/06/2024 11:29 AM EDT 11/06/2024 12:19 PM EDT Comment:Pre-op diagnosis: Surgical wound infection [T81.49XA] Nathaly Nowak MD LAB MICROBIOLOGY - GENERAL ATIYA FRITZ Final Result Performing Organization Address [facility] Co de Phone Number [facility] [address] [place] [address] * Fungal Culture, Routine (11/06/2024 11:29 AM EDT) Culture No Fungal Growth at 1 Week 11/13/2024 8:29 AM EDT [facility] Swab Topography unknown / Unknown 11/06/2024 11:29 AM EDT 11/06/2024 12:19 PM EDT Comment:Pre-op diagnosis: Surgical wound infection [T81.49XA] Nathaly Nowak MD LAB MICROBIOLOGY - GENERAL [place] LAM Final Result [facility] [address] [place] [address] * (ABNORMAL) Anaerobic Culture (11/06/2024 11:29 AM EDT) Culture No anaerobes isolated 11/14/2024 1:25 PM EDT [facility] Culture Streptococcus mitis/oralis group(A) 11/14/2024 1:25 PM EDT [facility] Comment: This result was determined by MALDI tof mass spectrometry using the tracx database and is for research use only. The organism value for this result has been updated. These results have been appended to the previously preliminary verified report. This is a corrected result. Previous organism was Mixed skin clifton on 11/10/2024 at 0718 EDT. Culture Staphylococcus pseudintermedius( A) 11/14/2024 1:25 PM EDT [facility] Comment: This isolate has been identified using the FDA Approved MALDI Ambrxyper CA System This is an appended report. These results have been appended to a previously final verified report. Swab Topography unknown / Unknown 11/06/2024 11:29 AM EDT 11/06/2024 12:19 PM EDT Comment:Pre-op diagnosis: Surgical wound infection [T81.49XA] Narrative [facility] - 11/14/2024 1:25 [...] GENERAL ORDE LAM Edited Result - Final Performing Organization Address [facility] [place] [address] * Routine Culture and Gram Stain (11/06/2024 11:28 AM EDT) Culture No growth at day 4 2024 11:24 AM EDT [facility] Gram Stain Result No organisms seen 11/10/2024 11:24 AM EDT [facility] Gram Stain Result No polymorphonuclear leukocytes seen 11/10/2024 11:24 AM EDT [facility] Swab Topography unknown / Unknown 11/06/2024 11:28 AM EDT 11/06/2024 12:20 PM EDT Comment:Pre-op diagnosis: Surgical wound infection [T81.49XA] us Nathaly Nowak MD LAB MICROBIOLOGY - GENERAL ATIYA FRITZ Final Result Performing Organization Address [facility] [place] [address] * Fungal Culture, Routine (11/06/2024 11:28 AM EDT) Culture No Fungal Growth at 1 Week 11/13/2024 8:29 AM EDT [facility] Swab Topography unknown / Unknown 11/06/2024 11:28 AM EDT 11/06/2024 12:20 PM EDT Comment:Pre-op diagnosis: Surgical wound infection [T81.49XA] Nathaly Nowak MD LAB MICROBIOLOGY - GENERAL ORDE RABLES Final Result Performing Organization Address City/[facility]/ZIP Co de Phone Number [facility] [address] [place] [address] * Anaerobic Culture (11/06/2024 11:28 AM EDT) Pathologist [facility] Culture No growth at day 4 11/13/2024 12:53 PM EDT [facility] Swab Topography unknown / Unknown 11/06/2024 11:28 AM EDT 11/06/2024 12:20 PM EDT Comment:Pre-op diagnosis: Surgical wound infection [T81.49XA] us Nathaly Nowak MD LAB MICROBIOLOGY - GENERAL [facility] Final Result Performing Organization Address [facility] [place] [address] * (ABNORMAL) POCT glucose meter (11/06/2024 10:16 AM EDT) Pathologist [facility] POCT Glucose 194(H) 74 - 99 mg/dL [...] Comment 11/06/2024 10:18 AM EDT HEALTHCARE LAB Mechanics Handyman ID Lacy Griffin 11/07/19 25 10:18 AM EDT HEALTHCARE LAB Device ID [id number] 11/06/2024 10:18 AM EDT HEALTHCARE LAB Specimen Type POC Capillary 11/06/2024 10:18 AM EDT HEALTHCARE LAB Blood Capillary blood specimen / Unknown 11/06/2024 10:16 AM EDT 11/06/2024 10:18 AM EDT us Nathaly Nowak MD LAB POINT OF CARE TE ST DOCKED DEVICE UNSOLICITED RESULTS Final Result Performing Organization Address City/[facility]/ZIP Co de Phone Number [facility] [address] [place] [address] * (ABNORMAL) POCT glucose meter (11/06/2024 5:58 AM EDT) [facility] POCT Glucose 182(H) 74 - 99 [...] Comment 11/06/2024 6:01 AM EDT HEALTHCARE LAB Mechanics Handyman ID Raj Laird 11/07/19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
--- OUTSIDE RECORDS SUMMARY | 2024-11-06 10:08 | XMS_ITS | Encounter Summary ---
Author Organization Healthcare Address [address] [place] [address] Care Team Providers Care Tamper Operator Name Role Phone Asad Victor MD Primary Care Provider + [phone] Reason for Visit * Reason Comments Post-op Problem Wound Check * Auth/Cert (Routine) Specialty Diagnoses / Procedures Referred By Contac t Referred To Contact Diagnoses Wound infection Post-op Vasc Sx wounds - sx on 10/17 at Nathaly Nowak MD [address] [address] Phone: tel: fax: [facility] Emergency Department [address] [place] [address] Phone: tel: Referral ID Status Reason Start Date Expiration Date Visits Re quested Visits Authorized [id number] 1 1 Encounter Details Date Type Department Care Team (Late st Contact Info) Description 11/06/2024 10:08 AM EDT - 11/06/2024 11:38 AM EDT Surgery [facility] OPERATING ROOM [address] [place] [address] Nathaly Nowak MD [id number] [place] [address] Left groin exploration and washout, [...] [place] [facility] (including [facility])? No 11/07/2024 CAGE ASSESSMENT Answer [...] first t dino in the morning ([employer]) to steady your nerves or to get rid of a hangover? 0 10/18/2021 CAGE Questionnaire Score 0 022 Utilities Answer Date Recorded In the past 12 months has [employer], gas, oil, or water [employer] threatened to shut off services in your [...] Carmona with any questions or concerns at [phone]. It is important that you get your [...] institution/faci lity policy. 34 each 11/14/2024 5 documented as of this encounter [...] Note Bev Borja 64 y.o. male CSN: [id number] Admission: 11/05/2024 9:45 PM Primary Problem: Wound infection Primary Company Driver: Primary Caregiver: Self Assistance Available at Discharge: [...] in last 30 days Follow-up: [facility] [address] [facility] [address] Go to Infusion Clinic. Please arrive at 11 am daily. [facility] [address] Go to Wound care clinic. First appointment is 1:10 pm. Please call [phone] with scheduling concerns. Discharge Transportation: Transportation Anticipated: medical transport Transportation Home at Discharge: Medical Transport Follow Up Transport: Transportation Needed to Follow up Appoinments: Medical Transport Additional Comments: Patient discharging home. No other SW needs identified. Mariia Monterroso SCIENTIFIC PROGRAMMER ANALYST * Discharge Summary - Melecio Echevarria DO - 11/14/2024 12:46 PM EDT Hospitalization Admit Date/Time: 11/05/2024 9:45 PM Admitting Attending: Nathaly Nowak Discharge Date: 11/14/2024 Discharge Attending Physician: Nathaly Nowak MD PCP name and Address: Asad Victor MD (Inactive) [address] [place] [address] / [address] [address] Referring provider name and address: Wade Cowart, DO [address] [place] [address] Chief Concern, Brief History of Present Illness, and Hospital Course Mr. Borja is a 64 y/o male that presented to [facility] on 11/06/2024 for surgical wound infection [...] Your Medications [facility] - GLENDA Solorzano - [address], [place] [address] ertapenem injection micafungin injection Discharge Diagnosis Medical [...] Time Provider Department Center 11/26/2024 2:00 PM [facility] 1 [facility] 11/26/2024 2:30 PM [facility] 2 [facility] [...] 64 y/o male that presented to [facility] on 11/06/2024 for surgical wound infection [...] Note Bev Borja 64 y.o. male CSN: [id number] Admission: 11/05/2024 9:45 PM Primary Problem: Wound infection Wound vac to be delivered today by at bedside. SW sent referral/orders to [facility] wound care center (fax [phone]) and infusion clinic (fax [phone]). Plan to discharge tomorrow. SW will continue to follow. Mariia Monterroso SCIENTIFIC PROGRAMMER ANALYST * Progress Notes - Bianca Knight PharmD - 11/13/2024 12:55 PM EDT Vancomycin therapy has been stopped per ID recommendation. Pharmacist will sign off from dosing and monitoring vancomycin. Please re- consult a pharmacist if more vancomycin is indicated. Bianca Knight PharmD, [facility] * Progress Notes - Ailin Levy [...] Lumen PICC Antimicrobial Regimen: IV Ertapenem 1g [id number] start date:11/06/2024 Projected End date:12/18/2024 IV Micafungin 150mg [id number] Start date: 11/12/2024 Projected End Date: 12/24/2024 [...] OPAT Team Attn: Dr Kraus Fax #: [phone] Appointments: (Dr Appiah 08/02/2024 at 2.30pm) at: [facility]: [address] [place] [address] (Select Option 3 for IV Antibiotic / PICC line related issues) For questions regarding OPAT prior to discharge, reach out to the OPAT team via [employer] Secure Chat (Group: OPAT Referral Team). For all questions regarding OPAT after discharge should be directed to the OPAT Team at (Select Option 3 for IV Antibiotics/PICC Issues) between 8am-5pm. After 5 pm, or during weekends/ holidays, please call the paging tag meter operator at to reach the on-call ID fellow. PLEASE NOTIFY THE ID CONSULTING SERVICE OF ANY QUESTIONS REGARDING THESE RECOMMENDATIONS OR WITH ANY ANTIMICROBIAL CHANGES THAT OCCUR AFTER THE DATE/TIME OF THIS OPAT INTAKE NOTE. Cosigned by aVishali Kraus MD at 11/14/2024 1:40 AM EDT [...] [facility] Department of Surgery Division of Vascular Surgery Surgery Progress Note 11/13/24 Bev Borja Subjective Subjective: HPI 64yoM PMHx COPD, T2DM, HLD, HTN, RLS, CAD s/p PCI (on Xarelto) s/p pacemaker c/b left SANDIP pseudoaneurysm s/p thrombin injection 09/21/24, CLI s/p left femoral endarterectomy with EIA/HAND MODEL stenting 10/17/24, who presented to [facility] 11/05/2024 with wound infection. 11/06/24: L [...] 09/21/24, CLI s/p left femoral endarterectomy with EIA/HAND MODEL stenting 10/17/24, who presented to [facility] 11/05/2024 with wound infection. POD # [...] the findings. Cardiac Device Check - PRE-OR [facility] EP-Device Clinic: Pre-operative CIED Report Assessment and Sara-Procedural Reommendations: Name: Bev Borja Date: 10/17/2024 : 1960 Age: 64 y.o. Patient has a Case Assembler: Berger RN POSTPARTUM-PM Remaining battery longevity adequate. Lead integrity test [...] recommendations. Supporting reports can be found in [employer] media file. Micro: Susceptibility data from last [...] Units Date/Time Tissue Culture and Gram Stain [[id number]] (Abnormal) (Susceptibility) Collected: 11/06/24 1134 Order Status: Completed Specimen: Tissue from Other (specify site) Updated: 11/12/24 1334 Culture Moderate Growth 2+ Enterobacter cloacae complex Comment: This isolate has been identified using the FDA Approved [employer]per CA System The organism value for this result has been updated. These results have been appended to the previously preliminary verified report. Edited result: Previously reported as Gram Negative Jesus on 11/07/2024 at 1434 EDT. 2+ Streptococcus mitis/oralis group Comment: This isolate has been identified using the FDA Approved MALDI Elandyper CA System The organism value for this result has been updated. These results have been appended to the previously preliminary verified report. 2+ Pasteurella stomatis Comment: This result was determined by MALDI tof mass spectrometry using the TigerText database and is for research use only. [...] stewardship team. Comprehensive GI Panel by PCR [[id number]] (Normal) Collected: 11/12/24 0950 Order Status: Completed [...] if clinically indicated. Clostridiodes (Clostridium) difficile PCR [[id number]] (Normal) Collected: 11/12/24 0950 Order Status: Completed [...] high complexity clinical laboratory testing. Anaerobic Culture [[id number]] Collected: 11/06/24 1128 Order Status: Completed Specimen: Swab from Other (specify site) Updated: 11/12/24 1118 Culture No growth at day 4 Fungal Culture, Tissue and ISIDRO [[id number]] (Abnormal) Collected: 11/06/24 1134 Order Status: Completed Specimen: Tissue from Other (specify site) Updated: 11/12/24 1033 Culture Reading Mycological 4 Weeks Rare [place] Sana parapsilosis Comment: This isolate has been identified using the FDA Approved MALDI Eland[employer]per CA System The organism value for this result has been updated. These results have been appended to the previously preliminary verified report. Edited result: Previously reported as Yeast on 11/11/2024 at 1317 EDT. ISIDRO No fungal elements seen Additional Susceptibilities and/or Identification [[id number]] Collected: 11/11/24 1240 Order Status: Completed Specimen: Tissue from Wound (specify site): Additional Susceptibilities and/or Identification [[id number]] Collected: 11/11/24 1238 Order Status: Completed Specimen: Tissue from Wound (specify site): Additional Susceptibilities and/or Identification [[id number]] Collected: 11/11/24 1237 Order Status: Completed Specimen: Tissue from Wound (specify site): AFB Culture, Non Respiratory Source and Acid Fast Stain [[id number]] Collected: 11/06/24 1134 Order Status: Completed Specimen: Tissue from Other (specify site) Updated: 11/11/24 0938 AFB Culture No Mycobacterial Growth <1 Week Acid Fast Stain No acid fast bacilli seen Blood Culture (Aerobic/Anaerobet Set) [[id number]] Collected: 11/06/24106 Order Status: Completed Specimen: Blood from AC, Left Updated: 11/11/24 0301 Culture No growth at day 5 Blood Culture (Aerobic/Anaerobet Set) [[id number]] Collected: 11/06/24106 Order Status: Completed Specimen: Blood [...] [facility]SH. [facility] [...] a facility, plan for h [facility] daily IV abx. Plan [...] Oral q6h [facility] Anthony Reyes MD 1,000 mg [...] 4 mg 4 mg Intravenous q6h PRN Anthnoy Reyes MD Or ondansetron (Zofran) 4 MG/5ML [...] Prevent or Manage Pain Flowsheets (Taken 11/11/2024 6764 by Jonathan Vale RN) Sensory Stimulation Regulation: care clustered lighting decreased quiet environment promoted Medication Review/Management: medications reviewed * Consults - Anabel Ovalle RD - 11/12/2024 9:59 AM EDT Adult Nutrition Evaluation Note Bev Borja 64 y.o. male CSN: [id number] Room/Bed 682/682B Nutrition evaluation type: assessment Reason for evaluation: LOS Hospital course: 64 y.o. male with PMHx significant for COPD, CAD s/p PCI (on Xarelto) s/p pacemaker c/b left SANDIP pseudoaneurysm s/p thrombin injection 09/21/24, chronic limb ischemia s/p left femoralendarterectomy with external iliac/common femoral artery stenting 10/17/24, T2DM, HLD, HTN, RLS who presented to the [facility] on 11/05/2024 with problems with his [...] (194 lb 3.6 oz) BMI (Calculated): 30.41 [place] Body Weight (kg): 67.3 Percent [place] Body Weight: 131 Adjusted Body Weight (kg): [...] oz) Estimated Needs: Kcal/ K-30 Kcal Provided: 4693-0261 Kcal Needs Based On: Adjusted weight Gm Protein/ Kg : 1.2-1.5 Protein Provided: 87-108 Protein Needs Based On: Adjusted weight Metabolic Cart Study Results: Current Nutrition Intake: Diet Order: Adult Diet Diet Texture: Regular Adult Carbohydrate Restriction: Consistent CHO 1 (0553-5111 Jtainder, 65 g/meal) Percent Meals Eaten (%): avg 63% x 6 emals Diet Experience and Nutrition History: Diet Education Provided: Will monitor Pertinent home medications: clopidogrel, docusate sodium, Lantus, Humalog, lisinopril, metoprolol tartrate, pravastatin, rivaroxaban, ropinirole, tamsulosin Islam needs: Nutrition Focused Physical Exam: Physical exam [...] ENDARTERECTOMY N/A 2017 Endarterectomy Carotid Artery from [employer] CORONARY ANGIOPLASTY Left Coronary Angiography With Concomitant Left Heart Catheterization from [employer] CORONARY ARTERY BYPASS GRAFT N/A 2018 3V ELBOW SURGERY Right ENDARTERECTOMY Left 10/17/2024 common/SFA/Profunda thromboendarterectomy, EIA/HAND MODEL stent HERNIA REPAIR KNEE ARTHROSCOPY Left VASCULAR SURGERY Left 09/21/2024 HAND MODEL pseudoaneurym injection [3] Social History Tobacco Use [...] 09/21/24, CLI s/p left femoral endarterectomy with EIA/HAND MODEL stenting 10/17/24, who presented to [facility] 11/05/2024 with wound infection. 11/06/24: L [...] 09/21/24, CLI s/p left femoral endarterectomy with EIA/HAND MODEL stenting 10/17/24, who presented to [facility] 11/05/2024 with wound infection. POD # [...] the findings. Cardiac Device Check - PRE-OR [facility] EP-Device Clinic: Pre-operative CIED Report Assessment and Sara-Procedural Reommendations: Name: Bev Borja Date: 10/17/2024 : 1960 Age: 64 y.o. Patient has a Case Assembler: [employer] RN POSTPARTUM-PM Remaining battery longevity adequate. Lead integrity test [...] recommendations. Supporting reports can be found in [employer] media file. Micro: Susceptibility data from last [...] Units Date/Time Tissue Culture and Gram Stain [[id number]] (Abnormal) (Susceptibility) Collected: 11/06/24 1134 Order Status: Completed Specimen: Tissue from Other (specify site) Updated: 11/12/24 1334 Culture Moderate Growth 2+ Enterobacter cloacae complex Comment: This isolate has been identified using the FDA Approved [employer] CA System The organism value for this result has been updated. These results have been appended to the previously preliminary verified report. Edited result: Previously reported as Gram Negative Jesus on 11/07/2024 at 1434 EDT. 2+ Streptococcus mitis/oralis group Comment: This isolate has been identified using the FDA Approved [employer] CA System The organism value for this result has been updated. These results have been appended to the previously preliminary verified report. 2+ Pasteurella stomatis Comment: This result was determined by MALDI tof mass spectrometry using the TigerText database and is for research use only. [...] stewardship team. Comprehensive GI Panel by PCR [[id number]] (Normal) Collected: 11/12/24 0950 Order Status: Completed [...] if clinically indicated. Clostridiodes (Clostridium) difficile PCR [[id number]] (Normal) Collected: 11/12/24 0950 Order Status: Completed [...] high complexity clinical laboratory testing. Anaerobic Culture [[id number]] Collected: 11/06/24 1128 Order Status: Completed Specimen: Swab from Other (specify site) Updated: 11/12/24 1118 Culture No growth at day 4 Fungal Culture, Tissue and ISIDRO [[id number]] (Abnormal) Collected: 11/06/24 1134 Order Status: Completed Specimen: Tissue from Other (specify site) Updated: 11/12/24 1033 Culture Reading Mycological 4 Weeks Rare [place] Sana parapsilosis Comment: This isolate has been identified using the FDA Approved JAZIOyper CA System The organism value for this result has been updated. These results have been appended to the previously preliminary verified report. Edited result: Previously reported as Yeast on 11/11/2024 at 1317 EDT. ISIDRO No fungal elements seen Additional Susceptibilities and/or Identification [[id number]] Collected: 11/11/24 1240 Order Status: Completed Specimen: Tissue from Wound (specify site): Additional Susceptibilities and/or Identification [[id number]] Collected: 11/11/24 1238 Order Status: Completed Specimen: Tissue from Wound (specify site): Additional Susceptibilities and/or Identification [[id number]] Collected: 11/11/24 1237 Order Status: Completed Specimen: Tissue from Wound (specify site): AFB Culture, Non Respiratory Source and Acid Fast Stain [[id number]] Collected: 11/06/24 1134 Order Status: Completed Specimen: Tissue from Other (specify site) Updated: 11/11/24 0938 AFB Culture No Mycobacterial Growth <1 Week Acid Fast Stain No acid fast bacilli seen Blood Culture (Aerobic/Anaerobet Set) [[id number]] Collected: 11/06/24106 Order Status: Completed Specimen: Blood from AC, Left Updated: 11/11/24 0301 Culture No growth at day 5 Blood Culture (Aerobic/Anaerobet Set) [[id number]] Collected: 11/06/24106 Order Status: Completed Specimen: Blood [...] 11/06, pt went to the [facility] vascular surgery for left groin exploration [...] Oral q6h [facility] Anthony Reyes MD 1,000 mg at 11/12/24 1356 aspirin chewable tablet 81 mg 81 mg Oral Daily Reid Daniels MD 81 mg at 11/12/24 0938 cefepime (Maxipime) 2 g in sodium chloride 0.9% 100 mL IVPB (vial adapter required) 2 g [id number] Reid Daniels MD 36.7 mL/hr at 11/12/24 [...] PM Anthony Reyes MD 0.4 mg at [id number] Vancomycin HCl in NaCl (Vancocin) IVPB 1,000 [...] send him home on micafungin as Rare [place] Sana parapsilosis grew and we do [...] Goal: Absence of Bleeding 11/11/20242347 by Jonathan aVle RN Outcome: Ongoing, [...] by Jonathan Vlae RN Outcome: Ongoing, Progressing Goal: Effective Urinary [...] Note Bev Borja 64 y.o. male CSN: [id number] Admission: 11/05/2024 9:45 PM Primary Problem: Wound infection Patient refusing inpatient placement for IV abx. [facility] infusion clinic can provide treatment. Face sheet, IV abx orders, and order for PICC care/labs/dressing changes need to be faxed to [phone]. Voicemail left with wound care clinic. Wound vac approved per , delivery pending. Crysll continue to follow. Mariia Monterroso SCIENTIFIC PROGRAMMER ANALYST * Progress Notes - Dotty Sethi MD [...] the findings. Cardiac Device Check - PRE-OR [facility] EP-Device Clinic: Pre-operative CIED Report Assessment and Sara-Procedural Reommendations: Name: Bev Borja Date: 10/17/2024 : 1960 Age: 64 y.o. Patient has a Case Assembler: Berger RN POSTPARTUM-PM Remaining battery longevity adequate. Lead integrity test [...] recommendations. Supporting reports can be found in [employer] media file. Micro: Susceptibility data from last [...] Non Respiratory Source and Acid Fast Stain [[id number]] Collected: 11/06/24 1134 Order Status: Completed Specimen: Tissue from Other (specify site) Updated: 11/11/24 0938 AFB Culture No Mycobacterial Growth <1 Week Acid Fast Stain No acid fast bacilli seen Blood Culture (Aerobic/Anaerobet Set) [[id number]] Collected: 11/06/24106 Order Status: Completed Specimen: Blood from AC, Left Updated: 11/11/24 0301 Culture No growth at day 5 Blood Culture (Aerobic/Anaerobet Set) [[id number]] Collected: 11/06/24 010 Order Status: Completed Specimen: Blood from Hand, Right Updated: 11/11/24 0249 Culture No growth at day 5 Anaerobic Culture [[id number]] Collected: 11/06/24 1128 Order Status: Completed Specimen: Swab from Other (specify site) Updated: 11/10/24 1441 Culture No growth at day 4 Routine Culture and Gram Stain [[id number]] Collected: 11/06/24 1128 Order Status: Completed Specimen: Swab from Other (specify site) Updated: 11/10/24 1124 Culture No growth at day 4 Gram Stain Result No organisms seen No polymorphonuclear leukocytes seen Anaerobic Culture [[id number]] (Abnormal) Collected: 11/06/24 112 Order Status: Completed Specimen: Swab from Other (specify site) Updated: 11/10/24 0718 Culture No anaerobes isolated Mixed skin clifton Comment: The organism value for this result has been updated. These results have been appended to the previously preliminary verified report. Narrative: Mixed Skin [place] includes Streptococcus mitis/oralis group and Staphylococcus Pseudintermedius Anaerobic Culture [[id number]] (Abnormal) Collected: 11/06/24 1134 Order Status: Completed [...] OSH. [facility] [...] mL IVPB (vial adapter required) 2 g [id number] Reid Daniels MD 36.7 mL/hr at 11/11/24 [...] PM Anthony Reyes MD 0.4 mg at [id number] Vancomycin HCl in NaCl (Vancocin) IVPB 1,000 [...] 09/21/24, CLI s/p left femoral endarterectomy with EIA/HAND MODEL stenting 10/17/24, who presented to [facility] 11/05/2024 with wound infection. 11/06/24: L [...] 09/21/24, CLI s/p left femoral endarterectomy with EIA/HAND MODEL stenting 10/17/24, who presented to [facility] 11/05/2024 with wound infection. POD # [...] by: Reid Daniels MD at 11/11/2024 0866 Dispo: Continue Current Level of Care Reid [...] follow, Submitted by: Kalpesh Lord PharmD, [facility] 11/10/2024 12:45 PM * Care Plan [...] HOB elevated * Progress Notes - Reid Dainels MD - 11/10/2024 10:59 AM EDT Images [...] 09/21/24, CLI s/p left femoral endarterectomy with EIA/HAND MODEL stenting 10/17/24, who presented to [facility] 11/05/2024 with wound infection. 11/06/24: L [...] 09/21/24, CLI s/p left femoral endarterectomy with EIA/HAND MODEL stenting 10/17/24, who presented to [facility] 11/05/2024 with wound infection. POD # [...] Barraza RN Authorized by: Nathaly Nowak MD [place] Protocol: Verbal consent obtained?: Yes Written consent [...] selection rationale: Left pacemaker Catheter Lot #: [id number] Catheter rolling attendant: [employer] Catheter placed: Single lumen Catheter size: 4 [...] 09/21/24, CLI s/p left femoral endarterectomy with EIA/HAND MODEL stenting 10/17/24, who presented to [facility] 11/05/2024 with wound infection. 11/06/24: L [...] 09/21/24, CLI s/p left femoral endarterectomy with EIA/HAND MODEL stenting 10/17/24, who presented to [facility] 11/05/2024 with wound infection. POD # [...] Care [place] M4 student [facility] Cosigned [...] Mobility: Ambulatory- community (was utilizing scooter at [employer] since discharge) Mobility [place]: Independent gait with device History of Falls: [...] Mobility Bed Mobility Exam: Scooting/Bridging Level of [place]: Modified independence Bed Mobility Exam: Supine to Sit Level of [place]: Modified [place] Transfers Transfer Exam: Sit to stand Level of [place]: Modified independence Assistive Device: Rollator Transfer Exam: Stand to Sit Level of [place]: Modified independence Assistive Device: Rollator Ambulation Device: [...] maintain/improve functional mobility and endurance. Standardized Assessments [facility] 6-Clicks Mobility Assessment Difficulty patient has turning [...] 3-5 steps with a railing?: A little [facility] Mobility Assessment Total : 22 Assessment [...] Mobility Ambulatory- community (was utilizing scooter at [employer] since discharge) Mobility [place] Independent gait with device History of Falls [...] distal to knee) BED MOBILITY Level of [place] Physical/Non-physical Assist Adaptive Equipment Utilized Scooting/ Bridging Modified independence Supine to Sit Modified [place] TRANSFERS Level of [place] Physical/Non-physical Assist Adaptive Equipment Utilized Sit to Stand Modified independence Rollator Stand to sit Modified independence Rollator Toilet Transfer Modified independence Grab bar FUNCTIONAL MOBILITY Ambulation Modified independent 200ft x2 with seated rest break between bouts; RPE 5-7/10. Cues forsafety with rollator brakes. Rollator Comments BALANCE Postural Appearance Posture: Within Functional Limits Level of [place] Balance Support Static Sit Independent Feet supported [...] needed areas of treatment space. Level of [place] Interventions Grooming Modified independent Standing sinkside Pt [...] Note Bev Borja 64 y.o. male CSN: [id number] Admission: 11/05/2024 9:45 PM Primary Problem: Wound [...] follow and assist as needed. Mariia Monterroso SCIENTIFIC PROGRAMMER ANALYST * Progress Notes - Bianca Knight PharmD [...] Pharmacy will continue to follow, Submitted by: Bianac Knight, ElizabethD, [facility] [...] 09/21/24, CLI s/p left femoral endarterectomy with EIA/HAND MODEL stenting 10/17/24, who presented to [facility] 11/05/2024 with wound infection. 11/06/24: L [...] completed 10/19 Pseudoaneurysm of left femoral artery ([facility]) COPD (chronic obstructive pulmonary disease) ([facility]) Overview Signed 10/18/2021 7:30 PM by Gallo Gallardo MD Not on home inhalers A-fib ([facility]) Overview Addendum 10/19/2021 10:39 AM by Giovanna Junior APRN Hold anticoagulation Metoprolol restarted BPH (benign prostatic hyperplasia) Overview Addendum 10/19/2021 10:41 AM by Giovanna Junior APRN Flomax restarted Subarachnoid hemorrhage ([facility]) Overview Addendum 10/20/2021 8:23 AM by Giovanna Junior APRN Left frontal, right occipital NSGY consulted - Repeat CTH showing slight worsening of tSAH - no need for further imaging, will continue to follow clinically 10/20: spoke with NSGY via phone and stated to hold ASA and Xarelto for 2 weeks Closed compression fracture of L3 lumbar vertebra, initial encounter ([facility]) Overview Signed 10/18/2021 7:35 PM [...] 09/21/24, CLI s/p left femoral endarterectomy with EIA/HAND MODEL stenting 10/17/24, who presented to [facility] 11/05/2024 with wound infection. POD # [...] Report Assessment and Sara-Procedural Reommendations: Name: Bev Boraj Date: 10/17/2024 : 1960 Age: 64 y.o. Patient has a Case Assembler: GameWith RN POSTPARTUM-PM Remaining battery longevity adequate. Lead integrity test [...] recommendations. Supporting reports can be found in [employer] media file. Micro: Susceptibility data from last 90 days. Collected Specimen Info Organism 11/06/24 Tissue from Other (specify site)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 EDT [facility] Stool Rectum structure / Unknown Non-blood Collection / Unknown 11/12/2024 9:50 AM EDT 11/12/2024 10:04 AM EDT Narrative [facility] - 11/12/2024 11:54 AM EDT [...] MICROBIOLOGY - GENERAL ATIYA FRITZ Final Result [facility] [address] [place] [address] * Comprehensive GI Panel by PCR (11/12/2024 9:50 AM EDT) Campylobacter PCR Result Not Detected Not Detected 11/12/2024 2:47 PM EDT [facility] Plesiomonas shigelloides PCR Result Not Detected Not Detected 11/12/2024 2:47 PM EDT [facility] Salmonella PCR Result Not Detected Not Detected 11/12/2024 2:47 PM EDT [facility] Vibrio species PCR Result Not Detected Not Detected 11/12/2024 2:47 PM EDT [facility] Vibrio cholerae PCR Result Not Detected Not Detected 11/12/2024 2:47 PM EDT [facility] Yersinia enterocolitica PCR Result Not Detected Not Detected 11/12/2024 2:47 PM EDT [facility] Enteroaggregative E. coli (EAEC) PCR Result Not Detected Not Detected 11/12/2024 2:47 PM EDT [facility] Enteropathogenic E. coli (EPEC) PCR Result Not Detected Not Detected 11/12/2024 2:47 PM EDT [facility] Enterotoxigenic E. coli (ETEC) lt/st PCR Result Not Detected Not Detected 11/12/2024 2:47 PM EDT [facility] Shiga-like Toxin-Producing E.coli (STEC) stx1/stx2 PCR Resu Not Detected Not Detected 11/12/2024 2:47 PM EDT [facility] E coli 0157 PCR Result Not Detected Not Detected 11/12/2024 2:47 PM EDT [facility] Shigella/Enteroinvas tam E. coli (EIEC) PCR Result Not Detected Not Detected 11/12/2024 2:47 PM EDT [facility] Cryptosporidium PCR Result Not Detected Not Detected 11/12/2024 2:47 PM EDT [facility] Cyclospora cayetanensis PCR Result Not Detected Not Detected 11/12/2024 2:47 PM EDT [facility] Entamoeba histolytica PCR Result Not Detected Not Detected 11/12/2024 2:47 PM EDT [facility] Giardia duodenalis (aka Giardia lamblia) PCR Result Not Detected Not Detected 11/12/2024 2:47 PM EDT [facility] Adenovirus F 40/41 PCR Result Not Detected Not Detected 11/12/2024 2:47 PM EDT [facility] Astrovirus PCR Result Not Detected Not Detected 11/12/2024 2:47 PM EDT [facility] Norovirus GI/GII PCR Result Not Detected Not Detected 11/12/2024 2:47 PM EDT [facility] Rotavirus A PCR Result Not Detected Not Detected 11/12/2024 2:47 PM EDT [facility] Sapovirus PCR Result Not Detected Not Detected 11/12/2024 2:47 PM EDT [facility] Stool Rectum structure / Unknown Non-blood Collection / Unknown 11/12/2024 9:50 AM EDT 11/12/2024 10:04 AM EDT Narrative [facility] - 11/12/2024 2:47 PM EDT [...] indicated. Nathaly Nowak MD LAB MICROBIOLOGY - [facility] Final Result Performing Organization Address City/State/[facility] Co de Phone Number [facility] [address] [place] [address] * C-reactive protein (11/12/2024 9:48 AM EDT) Pathologist [facility] CRP, Plasma <3.0 <=8.0 mg/L 11/12/2024 10:28 AM EDT [facility] Blood Venous blood specimen / Unknown Venipuncture / Unknown 11/12/2024 9:48 AM EDT 11/12/2024 9:59 AM EDT Narrative [facility] - 11/12/2024 10:28 AM EDT This CRP test is appropriate for assessment of infection, systemic inflammation and/or tissue injury. To assess cardiovascular disease risk order high sensitivity CRP (CRPH). us Nathaly Nowak MD LAB BLOOD ORDERABLES Final Resu lt Performing Organization Address City/[facility]/ZIP Co de Phone Number [facility] [address] [place] [address] * (ABNORMAL) POCT glucose meter (11/12/2024 8:20 [...] Comment 11/12/2024 8:21 AM EDT [facility]ALTH[facility] LAB Cutter Operator Brick ID Wade Feliciano Tobias 8:21 AM EDT [facility] Device ID [id number] 11/12/2024 8:21 AM EDT [facility] Specimen Type POC Capillary 11/12/2024 8:21 AM EDT [facility] Blood Capillary blood specimen / Unknown 11/12/2024 8:20 AM EDT 11/12/2024 8:21 AM EDT us Nathaly Nowak MD LAB POINT OF CARE TE ST DOCKED DEVICE UNSOLICITED RESULTS Final Result Performing Organization Address City/[facility] Co de Phone Number [facility] [address] [place] [address] * (ABNORMAL) POCT glucose meter (11/11/2024 8:18 PM EDT) Pathologist [facility] POCT Glucose 248(H) 74 - 99 mg/dL [...] Comment 11/11/2024 8:20 PM EDT [facility] Cutter Operator Brick ID Nelda Gerber 11/12/19 8:20 PM EDT [facility] Device ID [id number] 11/11/2024 8:20 PM EDT [facility] Specimen Type POC Capillary 11/11/2024 8:20 PM EDT [facility] Blood Capillary blood specimen / Unknown 11/11/2024 8:18 PM EDT 11/11/2024 8:20 PM EDT Nathaly Nowak MD LAB POINT OF CARE TE ST DOCKED DEVICE UNSOLICITED RESULTS Final Result Performing Organization Address City/[facility] Co de Phone Number [facility] [address] [place] [address] * (ABNORMAL) POCT glucose meter (11/11/2024 5:59 PM EDT) [facility] POCT Glucose 147(H) 74 - 99 mg/dL [...] Comment 11/11/2024 6:01 PM EDT [facility] LAB Cutter Operator Brick ID Wade Feliciano 6:01 PM EDT [facility] LAB Device ID [id number] 11/11/2024 6:01 PM EDT [facility] LAB Specimen Type POC Capillary 11/11/2024 6:01 PM EDT [facility] Blood Capillary blood specimen / Unknown 11/11/2024 5:59 PM EDT 11/11/2024 6:01 PM EDT us Nathaly Nowak MD LAB POINT OF CARE TE ST DOCKED DEVICE UNSOLICITED RESULTS Final Result Performing Organization Address City/[facility]/ZIP Co de Phone Number [facility] [address] [place] [address] * POCT glucose meter (11/11/2024 5:20 PM [...] 11/11/2024 5:22 PM EDT [facility] Cutter Operator Brick ID Wade Feliciano 5:22 PM EDT [facility] Device ID [id number] 11/11/2024 5:22 PM EDT [facility] Specimen Type POC Capillary 11/11/2024 5:22 PM EDT [facility] Blood Capillary blood specimen / Unknown 11/11/2024 5:20 PM EDT 11/11/2024 5:22 PM EDT us Nathaly Nowak MD LAB POINT OF CARE TE ST DOCKED DEVICE UNSOLICITED RESULTS Final Result [facility] [address] [place] [address] * CO NEGATIVE PRESSURE WOUND THERAPY DME >50 SQ [...] for testing. Comment 11/11/2024 12:10 PM EDT [facility] Cutter Operator Brick ID Wade Feliciano 12:10 PM EDT [facility] Device ID [id number] 11/11/2024 12:10 PM EDT [facility] Specimen Type POC Capillary 11/11/2024 12:10 PM EDT [facility] Blood Capillary blood specimen / Unknown 11/11/2024 12:08 PM EDT 11/11/2024 12:10 PM EDT Nathaly Nowak MD LAB POINT OF CARE TE ST DOCKED DEVICE UNSOLICITED RESULTS Final Result Performing Organization Address City/State/[facility] Co de Phone Number [facility] [address] [place] [address] * (ABNORMAL) POCT glucose meter (11/11/2024 9:08 [...] 11/11/2024 9:09 AM EDT [facility] Cutter Operator Brick ID Wade Feliciano 9:09 AM EDT [facility] LAB Device ID [id number] 11/11/2024 9:09 AM EDT [facility] LAB Specimen Type POC Capillary 11/11/2024 9:09 AM EDT [facility] Blood Capillary blood specimen / Unknown 11/11/2024 9:08 AM EDT 11/11/2024 9:09 AM EDT Nathaly Nowak MD LAB POINT OF CARE TE ST DOCKED DEVICE UNSOLICITED RESULTS Final Result Performing Organization Address City/[facility] Co de Phone Number [facility] [address] [place] [address] * POCT glucose meter (11/11/2024 8:27 AM EDT) [facility] POCT Glucose 87 74 - 99 mg/dL [...] Comment 11/11/2024 8:28 AM EDT [facility] LAB Cutter Operator Brick ID Wade Feliciano Tobias 8:28 AM EDT [facility] LAB Device ID [id number] 11/11/2024 8:28 AM EDT [facility] LAB Specimen Type POC Capillary 11/11/2024 8:28 AM EDT [facility] Blood Capillary blood specimen / Unknown 11/11/2024 8:27 AM EDT 11/11/2024 8:28 AM EDT Nathaly Nowak MD LAB POINT OF CARE TE ST DOCKED DEVICE UNSOLICITED RESULTS Final Result Performing Organization Address City/[facility]/ZIP Co de Phone Number [facility] [address] [place] [address] * (ABNORMAL) Basic Metabolic Panel, Plasma (11/11/2024 1:12 AM EDT) [facility] Glucose, Plasma 122(H) 74 - 99 mg/dL 11/11/2024 1:12 AM EDT [facility] BUN, Plasma 10 8 - 23 mg/dL 11/11/2024 1:12 AM EDT [facility] Creatinine, Plasma 0.82 0.70 - 1.20 mg/dL 11/11/2024 1:12 AM EDT [facility] BUN/Creatinine Ratio 12 11/11/2024 1:12 AM EDT [facility] Sodium, Plasma 137 136 - 145 mmol/L 11/11/2024 1:12 AM EDT [facility] Potassium, Plasma 3.9 3.6 - 4.9 mmol/L 11/11/2024 1:12 AM EDT [facility] Chloride, Plasma 110(H) 97 - 107 mmol/L 11/11/2024 1:12 AM EDT [facility] CO2, Plasma 20(L) 22 - 29 mmol/L 11/11/2024 1:12 AM EDT [facility] Anion Gap 7 6 - 16 mmol/L 11/11/2024 1:12 AM EDT [facility] Total Calcium, Plasma 7.6(L) 8.9 - 10.2 mg/dL 11/11/2024 1:12 AM EDT [facility] eGFRcr 97.5 mL/min/1.7 3m*2 11/11/2024 1:12 AM EDT [facility] Comment:Reported eGFRcr in m L/min/1.73m2 is based the CKD-EPI 2020 equation that does not use a race coefficient. Blood Venous blood specimen / Unknown 11/11/2024 12:42 AM EDT us Nathaly Nowak MD LAB BLOOD ORDERABLES Final Resu lt [facility] [address] [place] [address] * (ABNORMAL) CBC W/O Differential (11/11/2024 12:56 AM EDT) WBC Count 11.83(H) 3.70 - 10.30 10*3/uL LAB HEMATOLOGY METHOD 11/11/2024 12:56 AM EDT [facility] RBC Count 2.97(L) 4.60 - 6.10 10*6/uL LAB HEMATOLOGY METHOD 11/11/2024 12:56 AM EDT [facility] HGB 8.9(L) 13.7 - 17.5 g/dL LAB HEMATOLOGY METHOD 11/11/2024 12:56 AM EDT [facility] HCT 27.2(L) 40.0 - 51.0 % LAB HEMATOLOGY METHOD 11/11/2024 12:56 AM EDT [facility] Platelet Count 444(H) 155 - 369 10*3/uL LAB HEMATOLOGY METHOD 11/11/2024 12:56 AM EDT [facility] MCV 92 79 - 98 fL LAB HEMATOLOGY METHOD 11/11/2024 12:56 AM EDT [facility] MCH 30.0 26.0 - 32.0 pg LAB HEMATOLOGY METHOD 11/11/2024 12:56 AM EDT [facility] MCHC 32.7 30.7 - 35.5 g/dL LAB HEMATOLOGY METHOD 11/11/2024 12:56 AM EDT [facility] RDW 13.3 11.5 - 14.5 % LAB HEMATOLOGY METHOD 11/11/2024 12:56 AM EDT [facility] MPV 9.0 8.8 - 12.5 fL LAB HEMATOLOGY METHOD 11/11/2024 12:56 AM EDT [facility] nRBC 0.0 <=0.0 per 100 WBCs LAB HEMATOLOGY METHOD 11/11/2024 12:56 AM EDT [facility] Blood Venous blood specimen / Unknown 11/11/2024 12:42 AM EDT us Nathaly Nowak MD LAB BLOOD ORDERABLES Final Resu lt [facility] [address] [place] [address] * (ABNORMAL) POCT glucose meter (11/10/2024 8:25 [...] Comment 11/10/2024 8:28 PM EDT [facility]ALTH[facility]ARE LAB Cutter Operator Brick ID Nelda Gerber 11/11/19 8:28 PM EDT HEALTHCARE LAB Device ID [id number] 11/10/2024 8:28 PM EDT [facility]ALTH[facility]ARE LAB Specimen Type POC Capillary 11/10/2024 8:28 PM EDT [facility] Blood Capillary blood specimen / Unknown 11/10/2024 8:25 PM EDT 11/10/2024 8:28 PM EDT Nathaly Nowak MD LAB POINT OF CARE TE ST DOCKED DEVICE UNSOLICITED RESULTS Final Result Performing Organization Address City/State/[facility] Co de Phone Number HEALTH[facility]ARE LAB [address] [place] [address] * (ABNORMAL) POCT glucose meter (11/10/2024 4:45 PM EDT) [facility] POCT Glucose 155(H) 74 - 99 mg/dL [...] Comment 11/10/2024 4:47 PM EDT [facility]ALTH[facility]ARE LAB Cutter Operator Brick ID Esperanza Parks 11/10/2024 4:47 PM EDT HEALTHCARE LAB Device ID [id number] 11/10/2024 4:47 PM EDT [facility] Specimen Type POC Capillary 11/10/2024 4:47 PM EDT [facility] LAB Blood Capillary blood specimen / Unknown 11/10/2024 4:45 PM EDT 11/10/2024 4:47 PM EDT Nathaly Nowak MD LAB POINT OF CARE TE ST DOCKED DEVICE UNSOLICITED RESULTS Final Result Performing Organization Address City/[facility] Co de Phone Number [facility] [address] [place] [address] * (ABNORMAL) POCT glucose meter (11/10/2024 12:13 PM EDT) POCT Glucose 131(H) 74 - 99 mg/dL 11/10/2024 12:14 PM EDT [facility] Comment:Accuracy of a glucos e result [...] for testing. Comment 11/10/2024 12:14 PM EDT [facility] Cutter Operator Brick ID Esperanza Parks 11/10/2024 12:14 PM EDT [facility] Device ID [id number] 11/10/2024 12:14 PM EDT [facility] Specimen Type POC Capillary 11/10/2024 12:14 PM EDT [facility] Blood Capillary blood specimen / Unknown 11/10/2024 12:13 PM EDT 11/10/2024 12:14 PM EDT us Nathaly Nowak MD LAB POINT OF CARE TE ST DOCKED DEVICE UNSOLICITED RESULTS Final Result Performing Organization Address City/[facility] Co de Phone Number [facility] [address] [place] [address] * Vancomycin, Peak, Plasma Please draw ~2 hours after 0800 dose of vancomycin finishes infusing. Consider obtaining level via peripheral stick. If peripheral stick is not feasible, please ensure that line is flushed well prior to drawing level. Than... (11/10/2024 10:56 AM EDT) Vancomycin, Peak, Plasma 23.8 20.0 - 40.0 ug/mL 11/10/2024 11:25 AM EDT [facility] Blood Venous blood specimen / Unknown Venipuncture / Unknown 11/10/2024 10:56 AM EDT 11/10/2024 11:00 AM EDT Narrative [facility] - 11/10/2024 11:25 AM EDT Therapeutic Peak level: 20-40ug/mL Supra-therapeutic Peak level: >40 ug/mL us Abigail Seay MD LAB BLOOD ORDERABLES Final Res ult Performing Organization Address City/[facility]/ZIP Co de Phone Number [facility] [address] [place] [address] * (ABNORMAL) POCT glucose meter (11/10/2024 8:03 AM EDT) [facility] POCT Glucose 174(H) 74 - 99 mg/dL [...] Comment 11/10/2024 8:04 AM EDT HEALTHCARE LAB Cutter Operator Brick ID Esperanza Parks 11/10/2024 8:04 AM EDT HEALTHCARE LAB Device ID [id number] 11/10/2024 8:04 AM EDT [facility]ALTHCARE LAB Specimen Type POC Capillary 11/10/2024 8:04 AM EDT [facility] LAB Blood Capillary blood specimen / Unknown 11/10/2024 8:03 AM EDT 11/10/2024 8:04 AM EDT us Nathaly Nowak MD LAB POINT OF CARE TE ST DOCKED DEVICE UNSOLICITED RESULTS Final Result Performing Organization Address City/[facility]/ZIP Co de Phone Number [facility] [address] [place] [address] * Vancomycin, Trough, Plasma Please draw ~30 minutes prior to dose due at 0800 on 11/10. Please do NOThold dose awaiting level to return. Consider obtaining level via peripheral stick. If peripheral stick is not feasible, please ensure that line is... (11/10/2024 7:27 AM EDT) Vancomycin, Trough, Plasma 16.2 10.0 - 20.0 ug/mL 11/10/2024 8:24 AM EDT [facility] Blood Venous blood specimen / Unknown Venipuncture / Unknown 11/10/2024 7:27 AM EDT 11/10/2024 7:51 AM EDT Narrative [facility] - 11/10/2024 8:24 AM EDT Therapeutic Trough level: 10-20ug/mL Supra-therapeutic Trough level: >20 ug/mL us Abigail Seay MD LAB BLOOD ORDERABLES Final Res ult [facility] [address] [place] [address] * (ABNORMAL) CBC and Differential (11/10/2024 12:31 AM EDT) Pathologist [facility] WBC Count 10.80(H) 3.70 - 10.30 10*3/uL LAB HEMATOLOGY METHOD 11/10/2024 12:53 AM EDT [facility] RBC Count 3.06(L) 4.60 - 6.10 10*6/uL LAB HEMATOLOGY METHOD 11/10/2024 12:53 AM EDT [facility] HGB 9.1(L) 13.7 - 17.5 g/dL LAB HEMATOLOGY METHOD 11/10/2024 12:53 AM EDT [facility] HCT 28.0(L) 40.0 - 51.0 % LAB HEMATOLOGY METHOD 11/10/2024 12:53 AM EDT [facility] Platelet Count 501(H) 155 - 369 10*3/uL LAB HEMATOLOGY METHOD 11/10/2024 12:53 AM EDT [facility] MCV 92 79 - 98 fL LAB HEMATOLOGY METHOD 11/10/2024 12:53 AM EDT [facility] MCH 29.7 26.0 - 32.0 pg LAB HEMATOLOGY METHOD 11/10/2024 12:53 AM EDT [facility] MCHC 32.5 30.7 - 35.5 g/dL LAB HEMATOLOGY METHOD 11/10/2024 12:53 AM EDT [facility] RDW 13.2 11.5 - 14.5 % LAB HEMATOLOGY METHOD 11/10/2024 12:53 AM EDT [facility] MPV 8.8 8.8 - 12.5 fL LAB HEMATOLOGY METHOD 11/10/2024 12:53 AM EDT [facility] nRBC 0.0 <=0.0 per 100 WBCs LAB HEMATOLOGY METHOD 11/10/2024 12:53 AM EDT [facility] Differential Type Automated LAB HEMATOLOGY METHOD 11/10/2024 12:53 AM EDT [facility] Neutrophils % 77 % LAB HEMATOLOGY METHOD 11/10/2024 12:53 AM EDT [facility] Lymphocytes % 13 % LAB HEMATOLOGY METHOD 11/10/2024 12:53 AM EDT [facility] Monocytes % 8 % LAB HEMATOLOGY METHOD 11/10/2024 12:53 AM EDT [facility] Eosinophils % 1 % LAB HEMATOLOGY METHOD 11/10/2024 12:53 AM EDT [facility] Basophils % 0 % LAB HEMATOLOGY METHOD 11/10/2024 12:53 AM EDT [facility] Immature Granulocytes % 1 % LAB HEMATOLOGY METHOD 11/10/2024 12:53 AM EDT [facility] Neutrophils Absolute 8.32(H) 1.60 - 6.10 10*3/uL LAB HEMATOLOGY METHOD 11/10/2024 12:53 AM EDT [facility] Lymphocytes Absolute 1.40 1.20 - 3.90 10*3/uL LAB HEMATOLOGY METHOD 11/10/2024 12:53 AM EDT [facility] Monocytes Absolute 0.89 0.30 - 0.90 10*3/uL LAB HEMATOLOGY METHOD 11/10/2024 12:53 AM EDT [facility] Eosinophils Absolute 0.09 0.00 - 0.50 10*3/uL LAB HEMATOLOGY METHOD 11/10/2024 12:53 AM EDT [facility] Basophils Absolute 0.04 0.00 - 0.10 10*3/uL LAB HEMATOLOGY METHOD 11/10/2024 12:53 AM EDT [facility] Immature Granulocytes Absolute 0.06 0.00 - 0.06 10*3/uL LAB HEMATOLOGY METHOD 11/10/2024 12:53 AM EDT [facility] Blood Venous blood specimen / Unknown Venipuncture / Unknown 11/10/2024 12:31 AM EDT 11/10/2024 12:37 AM EDT Narrative [facility] - 11/10/2024 12:53 AM EDT Therapeutic decision making should be based on absolute values, rather than percentages. us Nathaly Nowak MD LAB BLOOD ORDERABLES Final Resu lt [facility] [address] [place] [address] * (ABNORMAL) Comprehensive Metabolic Panel, Plasma (11/10/2024 12:31 AM EDT) Glucose, Plasma 185(H) 74 - 99 mg/dL 11/10/2024 1:05 AM EDT [facility] BUN, Plasma 9 8 - 23 mg/dL 11/10/2024 1:05 AM EDT [facility] Creatinine, Plasma 0.72 0.70 - 1.20 mg/dL 11/10/2024 1:05 AM EDT [facility] BUN/Creatinine Ratio 13 11/10/2024 1:05 AM EDT [facility] Sodium, Plasma 135(L) 136 - 145 mmol/L 11/10/2024 1:05 AM EDT [facility] Potassium, Plasma 4.0 3.6 - 4.9 mmol/L 11/10/2024 1:05 AM EDT [facility] Chloride, Plasma 106 97 - 107 mmol/L 11/10/2024 1:05 AM EDT [facility] CO2, Plasma 19(L) 22 - 29 mmol/L 11/10/2024 1:05 AM EDT [facility] Anion Gap 10 6 - 16 mmol/L 11/10/2024 1:05 AM EDT [facility] Total Calcium, Plasma 7.8(L) 8.9 - 10.2 mg/dL 11/10/2024 1:05 AM EDT [facility] Total Protein 5.6(L) 6.3 - 7.9 g/dL 11/10/2024 1:05 AM EDT [facility] Albumin, Plasma 3.1(L) 3.5 - 5.2 g/dL 11/10/2024 1:05 AM EDT [facility] AST, Plasma 33 10 - 50 U/L 11/10/2024 1:05 AM EDT [facility] ALT, Plasma 25 10 - 50 U/L 11/10/2024 1:05 AM EDT [facility] Alkaline Phosphatase, Plasma 108 40 - 115 U/L 11/10/2024 1:05 AM EDT [facility] [facility] Total Bilirubin, Plasma <0.2(L) 0.2 - 1.1 mg/dL 11/10/2024 1:05 AM EDT [facility] eGFRcr 101.4 mL/min/1.7 3m*2 11/10/2024 1:05 AM EDT [facility] Comment:Reported eGFRcr in m L/min/1.73m2 is based the CKD-EPI 2020 equation that does not use a race coefficient. Blood Venous blood specimen / Unknown Venipuncture / Unknown 11/10/2024 12:31 AM EDT 11/10/2024 12:37 AM EDT us Nathaly Nowak MD LAB BLOOD ORDERABLES Final Resu lt [facility] [address] [place] [address] * (ABNORMAL) POCT glucose meter (11/09/2024 8:04 PM EDT) POCT Glucose 114(H) 74 - 99 mg/dL 11/09/2024 8:06 PM EDT [facility] Comment:Accuracy of a glucos e result [...] Comment 11/09/2024 8:06 PM EDT [facility] Cutter Operator Brick ID Jade WALTERS Maximiliano 11/09/2024 8:06 PM EDT [facility] Device ID [id number] 11/09/2024 8:06 PM EDT [facility] Specimen Type POC Capillary 11/09/2024 8:06 PM EDT [facility] Blood Capillary blood specimen / Unknown 11/09/2024 8:04 PM EDT 11/09/2024 8:06 PM EDT Nathaly Nowak MD LAB POINT OF CARE TE ST DOCKED DEVICE UNSOLICITED RESULTS Final Result Performing Organization Address City/[facility]/ZIP Co de Phone Number [facility] [address] [place] [address] * (ABNORMAL) POCT glucose meter (11/09/2024 4:36 PM EDT) [facility] POCT Glucose 166(H) 74 - 99 mg/dL [...] Comment 11/09/2024 4:38 PM EDT [facility] Cutter Operator Brick ID Kristian Sosa 11/09/2024 4:38 PM EDT [facility] LAB Device ID [id number] 11/09/2024 4:38 PM EDT [facility] Specimen Type POC Capillary 11/09/2024 4:38 PM EDT [facility] Blood Capillary blood specimen / Unknown 11/09/2024 4:36 PM EDT 11/09/2024 4:38 PM EDT Nathaly Nowak MD LAB POINT OF CARE TE ST DOCKED DEVICE UNSOLICITED RESULTS Final Result Performing Organization Address City/[facility]/ZIP Co de Phone Number [facility] [address] [place] [address] * PICC SINGLE LUMEN ([employer] LINK) (11/09/2024 1:11 PM EDT) Narrative Estefani Barraza RN - 11/09/2024 1:11 PM EDT Estefani Barraza RN 11/09/2024 1:12 PM Insert PICC line Date/Time: 11/09/2024 1:11 PM Performed by: Estefani Barraza RN Authorized by: Nathaly Nowak MD [place] Protocol: Verbal consent obtained?: Yes Written consent [...] selection rationale: Left pacemaker Catheter Lot #: [id number] Catheter rolling attendant: [employer] Catheter placed: Single lumen Catheter size: 4 Fr Catheter trimmed length: 42 Catheter threaded length: 42 Vein placed in: SVC Catheter cm indwellin Catheter cm outside: 0 Placement confirmed by: [employer] 3CG technology Pre-procedure: Landmarks identified Ultrasound guidance: [...] - 99 mg/dL 11/09/2024 11:51 AM EDT [facility] Comment:Accuracy of a glucos e result [...] Comment 11/09/2024 11:51 AM EDT [facility] Cutter Operator Brick ID Kristian Sosa 11/09/2024 11:51 AM EDT [facility] LAB Device ID [id number] 11/09/2024 11:51 AM EDT [facility] LAB Specimen Type POC Capillary 11/09/2024 11:51 AM EDT [facility] Blood Capillary blood specimen / Unknown 11/09/2024 11:50 AM EDT 11/09/2024 11:51 AM EDT Nathaly Nowak MD LAB POINT OF CARE TE ST DOCKED DEVICE UNSOLICITED RESULTS Final Result Performing Organization Address City/State/[facility] Co de Phone Number [facility] [address] [place] [address] * (ABNORMAL) POCT glucose meter (11/09/2024 8:14 AM EDT) [facility] POCT Glucose 153(H) 74 - 99 mg/dL [...] Comment 11/09/2024 8:15 AM EDT [facility] Cutter Operator Brick ID Kristian Sosa 11/09/2024 8:15 AM EDT [facility] LAB Device ID [id number] 11/09/2024 8:15 AM EDT [facility]ALTH[facility] LAB Specimen Type POC Capillary 11/09/2024 8:15 AM EDT [facility] Blood Capillary blood specimen / Unknown 11/09/2024 8:14 AM EDT 11/09/2024 8:15 AM EDT Nathaly Nowak MD LAB POINT OF CARE TE ST DOCKED DEVICE UNSOLICITED RESULTS Final Result [facility] [address] [place] [address] * (ABNORMAL) CBC and Differential (11/09/2024 4:15 AM EDT) WBC Count 10.27 3.70 - 10.30 10*3/uL LAB HEMATOLOGY METHOD 11/09/2024 4:26 AM EDT [facility] RBC Count 3.14(L) 4.60 - 6.10 10*6/uL LAB HEMATOLOGY METHOD 11/09/2024 4:26 AM EDT [facility] HGB 9.2(L) 13.7 - 17.5 g/dL LAB HEMATOLOGY METHOD 11/09/2024 4:26 AM EDT [facility] HCT 28.3(L) 40.0 - 51.0 % LAB HEMATOLOGY METHOD 11/09/2024 4:26 AM EDT [facility] Platelet Count 468(H) 155 - 369 10*3/uL LAB HEMATOLOGY METHOD 11/09/2024 4:26 AM EDT [facility] MCV 90 79 - 98 fL LAB HEMATOLOGY METHOD 11/09/2024 4:26 AM EDT [facility] MCH 29.3 26.0 - 32.0 pg LAB HEMATOLOGY METHOD 11/09/2024 4:26 AM EDT [facility] MCHC 32.5 30.7 - 35.5 g/dL LAB HEMATOLOGY METHOD 11/09/2024 4:26 AM EDT [facility] RDW 13.1 11.5 - 14.5 % LAB HEMATOLOGY METHOD 11/09/2024 4:26 AM EDT [facility] MPV 8.7(L) 8.8 - 12.5 fL LAB HEMATOLOGY METHOD 11/09/2024 4:26 AM EDT [facility] nRBC 0.0 <=0.0 per 100 WBCs LAB HEMATOLOGY METHOD 11/09/2024 4:26 AM EDT [facility] Differential Type Automated LAB HEMATOLOGY METHOD 11/09/2024 4:26 AM EDT [facility] Neutrophils % 77 % LAB HEMATOLOGY METHOD 11/09/2024 4:26 AM EDT [facility] Lymphocytes % 13 % LAB HEMATOLOGY METHOD 11/09/2024 4:26 AM EDT [facility] Monocytes % 8 % LAB HEMATOLOGY METHOD 11/09/2024 4:26 AM EDT [facility] Eosinophils % 1 % LAB HEMATOLOGY METHOD 11/09/2024 4:26 AM EDT [facility] Basophils % 0 % LAB HEMATOLOGY METHOD 11/09/2024 4:26 AM EDT [facility] Immature Granulocytes % 1 % LAB HEMATOLOGY METHOD 11/09/2024 4:26 AM EDT [facility] Neutrophils Absolute 7.97(H) 1.60 - 6.10 10*3/uL LAB HEMATOLOGY METHOD 11/09/2024 4:26 AM EDT [facility] Lymphocytes Absolute 1.32 1.20 - 3.90 10*3/uL LAB HEMATOLOGY METHOD 11/09/2024 4:26 AM EDT [facility] Monocytes Absolute 0.83 0.30 - 0.90 10*3/uL LAB HEMATOLOGY METHOD 11/09/2024 4:26 AM EDT [facility] Eosinophils Absolute 0.07 0.00 - 0.50 10*3/uL LAB HEMATOLOGY METHOD 11/09/2024 4:26 AM EDT [facility] Basophils Absolute 0.03 0.00 - 0.10 10*3/uL LAB HEMATOLOGY METHOD 11/09/2024 4:26 AM EDT [facility] Immature Granulocytes Absolute 0.05 0.00 - 0.06 10*3/uL LAB HEMATOLOGY METHOD 11/09/2024 4:26 AM EDT [facility] Blood Venous blood specimen / Unknown Venipuncture / Unknown 11/09/2024 4:15 AM EDT 11/09/2024 4:18 AM EDT Narrative [facility] - 11/09/2024 4:26 AM EDT Therapeutic decision making should be based on absolute values, rather than percentages. us Nathaly Nowak MD LAB BLOOD ORDERABLES Final Resu lt [facility] [address] [place] [address] * (ABNORMAL) Comprehensive Metabolic Panel, Plasma (11/09/2024 4:15 AM EDT) Glucose, Plasma 171(H) 74 - 99 mg/dL 11/09/2024 4:47 AM EDT [facility] BUN, Plasma 9 8 - 23 mg/dL 11/09/2024 4:47 AM EDT [facility] Creatinine, Plasma 0.67(L) 0.70 - 1.20 mg/dL 11/09/2024 4:47 AM EDT [facility] BUN/Creatinine Ratio 13 11/09/2024 4:47 AM EDT [facility] Sodium, Plasma 134(L) 136 - 145 mmol/L 11/09/2024 4:47 AM EDT [facility] Potassium, Plasma 4.1 3.6 - 4.9 mmol/L 11/09/2024 4:47 AM EDT [facility] Chloride, Plasma 104 97 - 107 mmol/L 11/09/2024 4:47 AM EDT [facility] CO2, Plasma 21(L) 22 - 29 mmol/L 11/09/2024 4:47 AM EDT [facility] Anion Gap 9 6 - 16 mmol/L 11/09/2024 4:47 AM EDT [facility] Total Calcium, Plasma 8.4(L) 8.9 - 10.2 mg/dL 11/09/2024 4:47 AM EDT [facility] Total Protein 5.8(L) 6.3 - 7.9 g/dL 11/09/2024 4:47 AM EDT [facility] Albumin, Plasma 3.2(L) 3.5 - 5.2 g/dL 11/09/2024 4:47 AM EDT [facility] AST, Plasma 18 10 - 50 U/L 11/09/2024 4:47 AM EDT [facility] ALT, Plasma 17 10 - 50 U/L 11/09/2024 4:47 AM EDT [facility] Alkaline Phosphatase, Plasma 110 40 - 115 U/L 11/09/2024 4:47 AM EDT [facility] Total Bilirubin, Plasma <0.2(L) 0.2 - 1.1 mg/dL 11/09/2024 4:47 AM EDT [facility] eGFRcr 103.6 mL/min/1.7 3m*2 11/09/2024 4:47 AM EDT [facility] Comment:Reported eGFRcr in m L/min/1.73m2 is based the CKD-EPI 2020 equation that does not use a race coefficient. Blood Venous blood specimen / Unknown Venipuncture / Unknown 11/09/2024 4:15 AM EDT 11/09/2024 4:18 AM EDT Nathaly Nowak MD LAB BLOOD ORDERABLES Final Resu lt Performing Organization Address City/[facility]/ZIP Co de Phone Number [facility] [address] [place] [address] * (ABNORMAL) POCT glucose meter (11/09/2024 3:30 AM EDT) [facility] POCT Glucose 160(H) 74 - 99 mg/dL [...] Comment 11/09/2024 3:31 AM EDT [facility] Cutter Operator Brick ID Maximiliano Hansen II 11/09/2024 3:31 AM EDT [facility] LAB Device ID [id number] 11/09/2024 3:31 AM EDT [facility] Specimen Type POC Capillary 11/09/2024 3:31 AM EDT [facility] Blood Capillary blood specimen / Unknown 11/09/2024 3:30 AM EDT 11/09/2024 3:31 AM EDT Nathaly Nowak MD LAB POINT OF CARE TE ST DOCKED DEVICE UNSOLICITED RESULTS Final Result Performing Organization Address City/[facility]/ZIP Co de Phone Number [facility] [address] [place] [address] * (ABNORMAL) POCT glucose meter (11/08/2024 7:21 PM EDT) Pathologist [facility] POCT Glucose 292(H) 74 - 99 mg/dL [...] Comment 11/08/2024 7:22 PM EDT [facility] Cutter Operator Brick ID Maximiliano Hansen II 11/08/2024 7:22 PM EDT [facility] LAB Device ID [id number] 11/08/2024 7:22 PM EDT [facility] Specimen Type POC Capillary 11/08/2024 7:22 PM EDT [facility] Blood Capillary blood specimen / Unknown 11/08/2024 7:21 PM EDT 11/08/2024 7:22 PM EDT Nathaly Nowak MD LAB POINT OF CARE TE ST DOCKED DEVICE UNSOLICITED RESULTS Final Result [facility] [address] [place] [address] * (ABNORMAL) POCT glucose meter (11/08/2024 5:12 PM EDT) [facility] POCT Glucose 178(H) 74 - 99 mg/dL [...] Comment 11/08/2024 5:14 PM EDT [facility] Cutter Operator Brick ID Estefani Sheth 11/08/2024 5:14 PM EDT [facility]ALTH[facility] LAB Device ID [id number] 11/08/2024 5:14 PM EDT [facility] Specimen Type POC Capillary 11/08/2024 5:14 PM EDT [facility] Blood Capillary blood specimen / Unknown 11/08/2024 5:12 PM EDT 11/08/2024 5:14 PM EDT Nathaly Nowak MD LAB POINT OF CARE TE ST DOCKED DEVICE UNSOLICITED RESULTS Final Result Performing Organization Address [facility] de Phone Number [facility] [address] [place] [address] * (ABNORMAL) POCT glucose meter (11/08/2024 12:03 [...] Comment 11/08/2024 12:05 PM EDT [facility] Cutter Operator Brick ID Estefani Sheth 11/08/2024 12:05 PM EDT [facility] LAB Device ID [id number] 11/08/2024 12:05 PM EDT [facility] Specimen Type POC Capillary 11/08/2024 12:05 PM EDT [facility] Blood Capillary blood specimen / Unknown 11/08/2024 12:03 PM EDT 11/08/2024 12:05 PM EDT Nathaly Nowak MD LAB POINT OF CARE TE ST DOCKED DEVICE UNSOLICITED RESULTS Final Result Performing Organization Address [facility] de Phone Number [facility] [address] [place] [address] * Vancomycin, Peak, Plasma Please draw ~2 hours after 11/08 0600 dose of vancomycin finishes infusing.Consider obtaining level via peripheral stick. If peripheral stick is not feasible, please ensure that line is flushed well prior to drawing level.... (11/08/2024 9:24 AM EDT) Pathologist [facility] Vancomycin, Peak, Plasma 29.1 20.0 - 40.0 ug/mL 11/08/2024 10:31 AM EDT [facility] Blood Venous blood specimen / Unknown Venipuncture / Unknown 11/08/2024 9:24 AM EDT 11/08/2024 9:47 AM EDT Narrative [facility] - 11/08/2024 10:31 AM EDT Therapeutic Peak level: 20-40ug/mL Supra-therapeutic Peak level: >40 ug/mL us Nathaly Nowak MD LAB BLOOD ORDERABLES Final Resu lt Performing Organization Address City/[facility]/ZIP Co de Phone Number [facility] [address] [place] [address] * (ABNORMAL) POCT glucose meter (11/08/2024 8:00 AM EDT) [facility] POCT Glucose 150(H) 74 - 99 mg/dL [...] Comment 11/08/2024 8:01 AM EDT [facility]ALTH[facility] Cutter Operator Brick ID Estefani Sheth 11/08/2024 8:01 AM EDT HEALTH[facility]ARE LAB Device ID [id number] 11/08/2024 8:01 AM EDT [facility]ALTH[facility]ARE LAB Specimen Type POC Capillary 11/08/2024 8:01 AM EDT [facility] Blood Capillary blood specimen / Unknown 11/08/2024 8:00 AM EDT 11/08/2024 8:01 AM EDT us Nathaly Nowak MD LAB POINT OF CARE TE ST DOCKED DEVICE UNSOLICITED RESULTS Final Result Performing Organization Address City/[facility]/ZIP Co de Phone Number [facility] [address] [place] [address] * (ABNORMAL) CBC and Differential (11/08/2024 4:39 AM EDT) [facility] WBC Count 9.18 3.70 - 10.30 10*3/uL LAB HEMATOLOGY METHOD 11/08/2024 4:58 AM EDT [facility] RBC Count 3.11(L) 4.60 - 6.10 10*6/uL LAB HEMATOLOGY METHOD 11/08/2024 4:58 AM EDT [facility] HGB 9.2(L) 13.7 - 17.5 g/dL LAB HEMATOLOGY METHOD 11/08/2024 4:58 AM EDT [facility] HCT 28.9(L) 40.0 - 51.0 % LAB HEMATOLOGY METHOD 11/08/2024 4:58 AM EDT [facility] Platelet Count 485(H) 155 - 369 10*3/uL LAB HEMATOLOGY METHOD 11/08/2024 4:58 AM EDT [facility] MCV 93 79 - 98 fL LAB HEMATOLOGY METHOD 11/08/2024 4:58 AM EDT [facility] MCH 29.6 26.0 - 32.0 pg LAB HEMATOLOGY METHOD 11/08/2024 4:58 AM EDT [facility] MCHC 31.8 30.7 - 35.5 g/dL LAB HEMATOLOGY METHOD 11/08/2024 4:58 AM EDT [facility] RDW 13.0 11.5 - 14.5 % LAB HEMATOLOGY METHOD 11/08/2024 4:58 AM EDT [facility] MPV 8.8 8.8 - 12.5 fL LAB HEMATOLOGY METHOD 11/08/2024 4:58 AM EDT [facility] nRBC 0.0 <=0.0 per 100 WBCs LAB HEMATOLOGY METHOD 11/08/2024 4:58 AM EDT [facility] Differential Type Automated LAB HEMATOLOGY METHOD 11/08/2024 4:58 AM EDT [facility] Neutrophils % 69 % LAB HEMATOLOGY METHOD 11/08/2024 4:58 AM EDT [facility] Lymphocytes % 17 % LAB HEMATOLOGY METHOD 11/08/2024 4:58 AM EDT [facility] Monocytes % 10 % LAB HEMATOLOGY METHOD 11/08/2024 4:58 AM EDT [facility] Eosinophils % 2 % LAB HEMATOLOGY METHOD 11/08/2024 4:58 AM EDT [facility] Basophils % 1 % LAB HEMATOLOGY METHOD 11/08/2024 4:58 AM EDT [facility] Immature Granulocytes % 1 % LAB HEMATOLOGY METHOD 11/08/2024 4:58 AM EDT [facility] Neutrophils Absolute 6.40(H) 1.60 - 6.10 10*3/uL LAB HEMATOLOGY METHOD 11/08/2024 4:58 AM EDT [facility] Lymphocytes Absolute 1.59 1.20 - 3.90 10*3/uL LAB HEMATOLOGY METHOD 11/08/2024 4:58 AM EDT [facility] Monocytes Absolute 0.87 0.30 - 0.90 10*3/uL LAB HEMATOLOGY METHOD 11/08/2024 4:58 AM EDT [facility] Eosinophils Absolute 0.22 0.00 - 0.50 10*3/uL LAB HEMATOLOGY METHOD 11/08/2024 4:58 AM EDT [facility] Basophils Absolute 0.05 0.00 - 0.10 10*3/uL LAB HEMATOLOGY METHOD 11/08/2024 4:58 AM EDT [facility] Immature Granulocytes Absolute 0.05 0.00 - 0.06 10*3/uL LAB HEMATOLOGY METHOD 11/08/2024 4:58 AM EDT [facility] Blood Venous blood specimen / Unknown Venipuncture / Unknown 11/08/2024 4:39 AM EDT 11/08/2024 4:49 AM EDT Narrative [facility] - 11/08/2024 4:58 AM EDT Therapeutic decision making should be based on absolute values, rather than percentages. us Nathaly Nowak MD LAB BLOOD ORDERABLES Final Resu lt [facility] [address] [place] [address] * (ABNORMAL) Comprehensive Metabolic Panel, Plasma (11/08/2024 4:39 AM EDT) Glucose, Plasma 255(H) 74 - 99 mg/dL 11/08/2024 5:20 AM EDT [facility] BUN, Plasma 10 8 - 23 mg/dL 11/08/2024 5:20 AM EDT [facility] Creatinine, Plasma 0.75 0.70 - 1.20 mg/dL 11/08/2024 5:20 AM EDT [facility] BUN/Creatinine Ratio 13 11/08/2024 5:20 AM EDT [facility] Sodium, Plasma 133(L) 136 - 145 mmol/L 11/08/2024 5:20 AM EDT [facility] Potassium, Plasma 5.2(H) 3.6 - 4.9 mmol/L 11/08/2024 5:20 AM EDT [facility] Chloride, Plasma 105 97 - 107 mmol/L 11/08/2024 5:20 AM EDT [facility] CO2, Plasma 20(L) 22 - 29 mmol/L 11/08/2024 5:20 AM EDT [facility] Anion Gap 8 6 - 16 mmol/L 11/08/2024 5:20 AM EDT [facility] Total Calcium, Plasma 7.7(L) 8.9 - 10.2 mg/dL 11/08/2024 5:20 AM EDT [facility] Total Protein 5.6(L) 6.3 - 7.9 g/dL 11/08/2024 5:20 AM EDT [facility] Albumin, Plasma 2.8(L) 3.5 - 5.2 g/dL 11/08/2024 5:20 AM EDT [facility] AST, Plasma 20 10 - 50 U/L 11/08/2024 5:20 AM EDT [facility] Comment:Hemolyzed, result ma y be falsely increased. ALT, Plasma 14 10 - 50 U/L 11/08/2024 5:20 AM EDT [facility] Alkaline Phosphatase, Plasma 119(H) 40 - 115 U/L 11/08/2024 5:20 AM EDT [facility] Total Bilirubin, Plasma <0.2(L) 0.2 - 1.1 mg/dL 11/08/2024 5:20 AM EDT [facility] eGFRcr 100.1 mL/min/1.7 3m*2 11/08/2024 5:20 AM EDT [facility] Comment:Reported eGFRcr in m L/min/1.73m2 is based the CKD-EPI 2020 equation that does not use a race coefficient. Blood Venous blood specimen / Unknown Venipuncture / Unknown 11/08/2024 4:39 AM EDT 11/08/2024 4:43 AM EDT Result [facility] Nathaly Nowak MD LAB BLOOD ORDERABLES Final Resu lt Performing Organization Address [facility] de Phone Number [facility] [address] [place] [phone] * Vancomycin, Trough, Plasma Please draw ~30 minutes prior to dose due at 0600 on 11/08. Please do NOThold dose awaiting level to return. Consider obtaining level via peripheral stick. If peripheral stick is not feasible, please ensure that line is... (11/08/2024 4:39 AM EDT) Vancomycin, Trough, Plasma 18.7 10.0 - 20.0 ug/mL 11/08/2024 5:22 AM EDT [facility] Blood Venous blood specimen / Unknown Venipuncture / Unknown 11/08/2024 4:39 AM EDT 11/08/2024 4:43 AM EDT Narrative [facility] - 11/08/2024 5:22 AM EDT Therapeutic Trough level: 10-20ug/mL Supra-therapeutic Trough level: >20 ug/mL Nathaly Nowak MD LAB BLOOD ORDERABLES Final Resu lt Performing Organization Address [facility] Phone Number [facility] [address] [place] [address] * (ABNORMAL) POCT glucose meter (11/07/2024 7:26 PM EDT) POCT Glucose 172(H) 74 - 99 mg/dL 11/07/2024 7:28 PM EDT [facility] Comment:Accuracy of a glucos e result [...] Comment 11/07/2024 7:28 PM EDT [facility]ALTH[facility]ARE [facility] Cutter Operator Brick ID Maximiliano Hansen II 11/07/2024 7:28 PM EDT [facility] Device ID [id number] 11/07/2024 7:28 PM EDT [facility] Specimen Type POC Capillary 11/07/2024 7:28 PM EDT [facility] Blood Capillary blood specimen / Unknown 11/07/2024 7:26 PM EDT 11/07/2024 7:28 PM EDT us Nathaly Nowak MD LAB POINT OF CARE TE ST DOCKED DEVICE UNSOLICITED RESULTS Final Result Performing Organization Address City/[facility]/ZIP Co de Phone Number [facility] [address] [place] [address] * (ABNORMAL) POCT glucose meter (11/07/2024 5:51 [...] Comment 11/07/2024 5:52 PM EDT [facility]ALTH[facility] Cutter Operator Brick ID Brigitte Castellon 11/07/2024 5:52 PM EDT [facility] Device ID [id number] 11/07/2024 5:52 PM EDT [facility] Specimen Type POC Capillary 11/07/2024 5:52 PM EDT [facility] Blood Capillary blood specimen / Unknown 11/07/2024 5:51 PM EDT 11/07/2024 5:52 PM EDT Nathaly Nowak MD LAB POINT OF CARE TE ST DOCKED DEVICE UNSOLICITED RESULTS Final Result Performing Organization Address City/[facility]/ZIP Co de Phone Number [facility] [address] [place] [address] * (ABNORMAL) POCT glucose meter (11/07/2024 4:47 PM EDT) [facility] POCT Glucose 162(H) 74 - 99 mg/dL [...] Comment 11/07/2024 4:48 PM EDT HEALTHCARE LAB Cutter Operator Brick ID Estefani Sheth 11/07/2024 4:48 PM EDT [facility] Device ID [id number] 11/07/2024 4:48 PM EDT HEALTHCARE LAB Specimen Type POC Capillary 11/07/2024 4:48 PM EDT [facility] Blood Capillary blood specimen / Unknown 11/07/2024 4:47 PM EDT 11/07/2024 4:48 PM EDT us Nathaly Nowak MD LAB POINT OF CARE TE ST DOCKED DEVICE UNSOLICITED RESULTS Final Result Performing Organization Address City/State/[facility] Co de Phone Number [facility]ARE LAB [address] [place] [address] * (ABNORMAL) POCT glucose meter (11/07/2024 12:22 PM EDT) [facility] POCT Glucose 172(H) 74 - 99 mg/dL [...] 11/07/2024 12:24 PM EDT [facility] Cutter Operator Brick ID Estefani Sheth 11/07/2024 12:24 PM EDT [facility] Device ID [id number] 11/07/2024 12:24 PM EDT [facility] Specimen Type POC Capillary 11/07/2024 12:24 PM EDT [facility] Blood Capillary blood specimen / Unknown 11/07/2024 12:22 PM EDT 11/07/2024 12:24 PM EDT us Nathaly Nowak MD LAB POINT OF CARE TE ST DOCKED DEVICE UNSOLICITED RESULTS Final Result [facility] [address] [place] [address] * (ABNORMAL) CBC and Differential (11/07/2024 11:37 AM EDT) WBC Count 9.96 3.70 - 10.30 10*3/uL LAB HEMATOLOGY METHOD 11/07/2024 12:33 PM EDT [facility] RBC Count 2.81(L) 4.60 - 6.10 10*6/uL LAB HEMATOLOGY METHOD 11/07/2024 12:33 PM EDT [facility] HGB 8.5(L) 13.7 - 17.5 g/dL LAB HEMATOLOGY METHOD 11/07/2024 12:33 PM EDT [facility] HCT 26.0(L) 40.0 - 51.0 % LAB HEMATOLOGY METHOD 11/07/2024 12:33 PM EDT [facility] Platelet Count 524(H) 155 - 369 10*3/uL LAB HEMATOLOGY METHOD 11/07/2024 12:33 PM EDT [facility] MCV 93 79 - 98 fL LAB HEMATOLOGY METHOD 11/07/2024 12:33 PM EDT [facility] MCH 30.2 26.0 - 32.0 pg LAB HEMATOLOGY METHOD 11/07/2024 12:33 PM EDT [facility] MCHC 32.7 30.7 - 35.5 g/dL LAB HEMATOLOGY METHOD 11/07/2024 12:33 PM EDT [facility] RDW 13.1 11.5 - 14.5 % LAB HEMATOLOGY METHOD 11/07/2024 12:33 PM EDT [facility] MPV 9.0 8.8 - 12.5 fL LAB HEMATOLOGY METHOD 11/07/2024 12:33 PM EDT [facility] nRBC 0.0 <=0.0 per 100 WBCs LAB HEMATOLOGY METHOD 11/07/2024 12:33 PM EDT [facility] Differential Type Automated LAB HEMATOLOGY METHOD 11/07/2024 12:33 PM EDT [facility] Neutrophils % 72 % LAB HEMATOLOGY METHOD 11/07/2024 12:33 PM EDT [facility] Lymphocytes % 17 % LAB HEMATOLOGY METHOD 11/07/2024 12:33 PM EDT [facility] [facility] Monocytes % 9 % LAB HEMATOLOGY METHOD 11/07/2024 12:33 PM EDT [facility] Eosinophils % 1 % LAB HEMATOLOGY METHOD 11/07/2024 12:33 PM EDT [facility] Basophils % 1 % LAB HEMATOLOGY METHOD 11/07/2024 12:33 PM EDT [facility] Immature Granulocytes % 0 % LAB HEMATOLOGY METHOD 11/07/2024 12:33 PM EDT [facility] Neutrophils Absolute 7.19(H) 1.60 - 6.10 10*3/uL LAB HEMATOLOGY METHOD 11/07/2024 12:33 PM EDT [facility] Lymphocytes Absolute 1.66 1.20 - 3.90 10*3/uL LAB HEMATOLOGY METHOD 11/07/2024 12:33 PM EDT [facility] Monocytes Absolute 0.88 0.30 - 0.90 10*3/uL LAB HEMATOLOGY METHOD 11/07/2024 12:33 PM EDT [facility] Eosinophils Absolute 0.14 0.00 - 0.50 10*3/uL LAB HEMATOLOGY METHOD 11/07/2024 12:33 PM EDT [facility] Basophils Absolute 0.05 0.00 - 0.10 10*3/uL LAB HEMATOLOGY METHOD 11/07/2024 12:33 PM EDT [facility] Immature Granulocytes Absolute 0.04 0.00 - 0.06 10*3/uL LAB HEMATOLOGY METHOD 11/07/2024 12:33 PM EDT [facility] Blood Venous blood specimen / Unknown Venipuncture / Unknown 11/07/2024 11:37 AM EDT 11/07/2024 12:24 PM EDT Narrative [facility] - 11/07/2024 12:33 PM EDT Therapeutic decision making should be based on absolute values, rather than percentages. us Nathaly Nowak MD LAB BLOOD ORDERABLES Final Resu lt [facility] [address] [place] [address] * (ABNORMAL) Comprehensive Metabolic Panel, Plasma (11/07/2024 11:37 AM EDT) Glucose, Plasma 173(H) 74 - 99 mg/dL 11/07/2024 1:31 PM EDT [facility] BUN, Plasma 13 8 - 23 mg/dL 11/07/2024 1:31 PM EDT [facility] Creatinine, Plasma 0.92 0.70 - 1.20 mg/dL 11/07/2024 1:31 PM EDT [facility] BUN/Creatinine Ratio 14 11/07/2024 1:31 PM EDT [facility] Sodium, Plasma 136 136 - 145 mmol/L 11/07/2024 1:31 PM EDT [facility] Potassium, Plasma 4.0 3.6 - 4.9 mmol/L 11/07/2024 1:31 PM EDT [facility] Chloride, Plasma 104 97 - 107 mmol/L 11/07/2024 1:31 PM EDT [facility] CO2, Plasma 23 22 - 29 mmol/L 11/07/2024 1:31 PM EDT [facility] Anion Gap 9 6 - 16 mmol/L 11/07/2024 1:31 PM EDT [facility] Total Calcium, Plasma 7.8(L) 8.9 - 10.2 mg/dL 11/07/2024 1:31 PM EDT [facility] Total Protein 5.7(L) 6.3 - 7.9 g/dL 11/07/2024 1:31 PM EDT [facility] Albumin, Plasma 3.0(L) 3.5 - 5.2 g/dL 11/07/2024 1:31 PM EDT [facility] AST, Plasma 15 10 - 50 U/L 11/07/2024 1:31 PM EDT [facility] ALT, Plasma 16 10 - 50 U/L 11/07/2024 1:31 PM EDT [facility] Alkaline Phosphatase, Plasma 119(H) 40 - 115 U/L 11/07/2024 1:31 PM EDT [facility] Total Bilirubin, Plasma <0.2(L) 0.2 - 1.1 mg/dL 11/07/2024 1:31 PM EDT [facility] eGFRcr 92.3 mL/min/1.7 3m*2 11/07/2024 1:31 PM EDT [facility] Comment:Reported eGFRcr in m L/min/1.73m2 is based the CKD-EPI 2020 equation that does not use a race coefficient. Blood Venous blood specimen / Unknown Venipuncture / Unknown 11/07/2024 11:37 AM EDT 11/07/2024 12:23 PM EDT Nathaly Nowak MD LAB BLOOD ORDERABLES Final Resu lt Performing Organization Address City/[facility]/ZIP Co de Phone Number [facility] [address] [place] [address] * Type and Screen (11/07/2024 11:37 AM [...] ORDERABLES F inal Result Performing Organization Address City/[facility]/ZIP Co de Phone Number BLOOD BANK [address] [place] [address], * (ABNORMAL) POCT glucose meter (11/07/2024 10:34 AM EDT) POCT Glucose 199(H) 74 - 99 mg/dL 11/07/2024 10:36 AM EDT [facility] Comment:Accuracy of a glucos e [...] Comment 11/07/2024 10:36 AM EDT [facility] Cutter Operator Brick ID Joy Iraheta 11/07/2024 10:36 AM EDT [facility] LAB Device ID [id number] 11/07/2024 10:36 AM EDT [facility] Specimen Type POC Capillary 11/07/2024 10:36 AM EDT [facility] Blood Capillary blood specimen / Unknown 11/07/2024 10:34 AM EDT 11/07/2024 10:36 AM EDT us Nathaly Nowak MD LAB POINT OF CARE TE ST DOCKED DEVICE UNSOLICITED RESULTS Final Result Performing Organization Address City/State/[facility] Co de Phone Number HEALTHCARE LAB [address] [place] [address] * (ABNORMAL) POCT glucose meter (11/07/2024 9:34 [...] Comment 11/07/2024 9:36 AM EDT [facility] Cutter Operator Brick ID Brigitte Castellon 11/07/2024 9:36 AM EDT [facility] LAB Device ID [id number] 11/07/2024 9:36 AM EDT [facility] Specimen Type POC Capillary 11/07/2024 9:36 AM EDT [facility] Blood Capillary blood specimen / Unknown 11/07/2024 9:34 AM EDT 11/07/2024 9:36 AM EDT Nathaly Nowak MD LAB POINT OF CARE TE ST DOCKED DEVICE UNSOLICITED RESULTS Final Result Performing Organization Address City/[facility] Co de Phone Number HEALTHCARE LAB [address] [place] [address] * (ABNORMAL) POCT glucose meter (11/07/2024 8:20 [...] for testing. Comment 11/07/2024 8:22 AM EDT [facility] Cutter Operator Brick ID Estefani Sheth 11/07/2024 8:22 AM EDT [facility] Device ID [id number] 11/07/2024 8:22 AM EDT [facility] Specimen Type POC Capillary 11/07/2024 8:22 AM EDT [facility] Blood Capillary blood specimen / Unknown 11/07/2024 8:20 AM EDT 11/07/2024 8:22 AM EDT us Nathaly Nowak MD LAB POINT OF CARE TE ST DOCKED DEVICE UNSOLICITED RESULTS Final Result Performing Organization Address City/[facility] Co de Phone Number [facility] [address] [place] [address] * (ABNORMAL) POCT glucose meter (11/07/2024 7:21 [...] Comment 11/07/2024 7:22 AM EDT [facility]ALTH[facility] Cutter Operator Brick ID Brigitte Castellon 11/07/2024 7:22 AM EDT HEALTH[facility]ARE LAB Device ID [id number] 11/07/2024 7:22 AM EDT [facility]ALTH[facility] Specimen Type POC Capillary 11/07/2024 7:22 AM EDT [facility] Blood Capillary blood specimen / Unknown 11/07/2024 7:21 AM EDT 11/07/2024 7:22 AM EDT Nathaly Nowak MD LAB POINT OF CARE TE ST DOCKED DEVICE UNSOLICITED RESULTS Final Result Performing Organization Address City/[facility] Co de Phone Number [facility] [address] [place] [address] * (ABNORMAL) POCT glucose meter (11/07/2024 6:25 [...] Comment 11/07/2024 6:27 AM EDT [facility] Cutter Operator Brick ID Nelda Gerber 11/08/19 6:27 AM EDT HEALTH[facility]ARE LAB Device ID [id number] 11/07/2024 6:27 AM EDT [facility] Specimen Type POC Capillary 11/07/2024 6:27 AM EDT [facility] Blood Capillary blood specimen / Unknown 11/07/2024 6:25 AM EDT 11/07/2024 6:27 AM EDT Nathaly Nowak MD LAB POINT OF CARE TE ST DOCKED DEVICE UNSOLICITED RESULTS Final Result [facility] [address] [place] [address] * (ABNORMAL) POCT glucose meter (11/07/2024 5:03 AM EDT) Pathologist [facility] POCT Glucose 139(H) 74 - 99 mg/dL [...] Comment 11/07/2024 5:08 AM EDT [facility] Cutter Operator Brick ID Nelda Gerber 11/08/19 5:08 AM EDT [facility] Device ID [id number] 11/07/2024 5:08 AM EDT [facility] Specimen Type POC Capillary 11/07/2024 5:08 AM EDT [facility] Blood Capillary blood specimen / Unknown 11/07/2024 5:03 AM EDT 11/07/2024 5:08 AM EDT us Nathaly Nowak MD LAB POINT OF CARE TE ST DOCKED DEVICE UNSOLICITED RESULTS Final Result Performing Organization Address City/State/[facility] Co de Phone Number HEALTH[facility]ARE LAB [address] [place] [address] * (ABNORMAL) POCT glucose meter (11/07/2024 4:16 AM EDT) Pathologist [facility] POCT Glucose 142(H) 74 - 99 mg/dL [...] 11/07/2024 4:18 AM EDT [facility] Cutter Operator Brick ID Nelda Gerber 11/08/19 4:18 AM EDT [facility] Device ID [id number] 11/07/2024 4:18 AM EDT [facility]ALTH[facility] Specimen Type POC Capillary 11/07/2024 4:18 AM EDT [facility] Blood Capillary blood specimen / Unknown 11/07/2024 4:16 AM EDT 11/07/2024 4:18 AM EDT Nathaly Nowak MD LAB POINT OF CARE TE ST DOCKED DEVICE UNSOLICITED RESULTS Final Result [facility] [address] [place] [address] * (ABNORMAL) POCT glucose meter (11/07/2024 3:21 [...] for testing. Comment 11/07/2024 3:23 AM EDT [facility] Cutter Operator Brick ID Nelda Gerber 11/08/19 3:23 AM EDT HEALTHCARE LAB Device ID [id number] 11/07/2024 3:23 AM EDT [facility] Specimen Type POC Capillary 11/07/2024 3:23 AM EDT [facility] Blood Capillary blood specimen / Unknown 11/07/2024 3:21 AM EDT 11/07/2024 3:23 AM EDT Nathaly Nowak MD LAB POINT OF CARE TE ST DOCKED DEVICE UNSOLICITED RESULTS Final Result [facility] [address] [place] [address] * (ABNORMAL) POCT glucose meter (11/07/2024 2:10 [...] Comment 11/07/2024 2:12 AM EDT [facility] Cutter Operator Brick ID Nelda Gerber 11/08/19 2:12 AM EDT HEALTH[facility]ARE LAB Device ID [id number] 11/07/2024 2:12 AM EDT [facility] LAB Specimen Type POC Capillary 11/07/2024 2:12 AM EDT [facility] Blood Capillary blood specimen / Unknown 11/07/2024 2:10 AM EDT 11/07/2024 2:12 AM EDT Nathaly Nowak MD LAB POINT OF CARE TE ST DOCKED DEVICE UNSOLICITED RESULTS Final Result Performing Organization Address City/State/[facility] Co de Phone Number [facility] [address] [place] [address] * (ABNORMAL) POCT glucose meter (11/07/2024 1:08 [...] Comment 11/07/2024 1:10 AM EDT [facility] Cutter Operator Brick ID Nelda Gerber 11/08/19 1:10 AM EDT [facility]ALTH[facility]ARE LAB Device ID [id number] 11/07/2024 1:10 AM EDT [facility] Specimen Type POC Capillary 11/07/2024 1:10 AM EDT [facility] Blood Capillary blood specimen / Unknown 11/07/2024 1:08 AM EDT 11/07/2024 1:10 AM EDT us Nathaly Nowak MD LAB POINT OF CARE TE ST DOCKED DEVICE UNSOLICITED RESULTS Final Result [facility] [address] [place] [address] * (ABNORMAL) POCT glucose meter (11/07/2024 12:10 AM EDT) POCT Glucose 127(H) 74 - 99 mg/dL 11/07/2024 12:13 AM EDT [facility] Comment:Accuracy of a glucos e result [...] for testing. Comment 11/07/2024 12:13 AM EDT [facility] Cutter Operator Brick ID Nelda Gerber 11/08/19 12:13 AM EDT [facility] Device ID [id number] 11/07/2024 12:13 AM EDT [facility] Specimen Type POC Capillary 11/07/2024 12:13 AM EDT [facility] Blood Capillary blood specimen / Unknown 11/07/2024 12:10 AM EDT 11/07/2024 12:13 AM EDT Nathaly Nowak MD LAB POINT OF CARE TE ST DOCKED DEVICE UNSOLICITED RESULTS Final Result [facility] [address] [place] [address] * (ABNORMAL) POCT glucose meter (11/06/2024 11:14 PM EDT) Pathologist [facility] POCT Glucose 71(L) 74 - 99 mg/dL 11/06/2024 11:16 PM EDT [facility] Comment:Accuracy of a glucos e result [...] 11/06/2024 11:16 PM EDT [facility] Cutter Operator Brick ID Nelda Gerber 11/07/19 25 11:16 PM EDT HEALTH[facility]ARE LAB Device ID [id number] 11/06/2024 11:16 PM EDT [facility] Specimen Type POC Capillary 11/06/2024 11:16 PM EDT [facility] Blood Capillary blood specimen / Unknown 11/06/2024 11:14 PM EDT 11/06/2024 11:16 PM EDT Nathaly Nowak MD LAB POINT OF CARE TE ST DOCKED DEVICE UNSOLICITED RESULTS Final Result Performing Organization Address City/[facility]/ZIP Co de Phone Number [facility]ALTH[facility]ARE [facility] [address] [place] [address] * (ABNORMAL) POCT glucose meter (11/06/2024 10:07 PM EDT) [facility] POCT Glucose 140(H) 74 - 99 mg/dL [...] Comment 11/06/2024 10:09 PM EDT [facility] Cutter Operator Brick ID Nelda Gerber 11/07/19 10:09 PM EDT HEALTH[facility]ARE LAB Device ID [id number] 11/06/2024 10:09 PM EDT [facility] Specimen Type POC Capillary 11/06/2024 10:09 PM EDT [facility] Blood Capillary blood specimen / Unknown 11/06/2024 10:07 PM EDT 11/06/2024 10:09 PM EDT Nathaly Nowak MD LAB POINT OF CARE TE ST DOCKED DEVICE UNSOLICITED RESULTS Final Result Performing Organization Address City/[facility]/ZIP Co de Phone Number [facility] [address] [place] [address] * (ABNORMAL) POCT glucose meter (11/06/2024 8:22 PM EDT) [facility] POCT Glucose 256(H) 74 - 99 mg/dL [...] Comment 11/06/2024 8:25 PM EDT [facility] Cutter Operator Brick ID Nelda Gerber 11/07/19 8:25 PM EDT HEALTH[facility]ARE LAB Device ID [id number] 11/06/2024 8:25 PM EDT [facility] LAB Specimen Type POC Capillary 11/06/2024 8:25 PM EDT [facility] Blood Capillary blood specimen / Unknown 11/06/2024 8:22 PM EDT 11/06/2024 8:25 PM EDT Nathaly Nowak MD LAB POINT OF CARE TE ST DOCKED DEVICE UNSOLICITED RESULTS Final Result Performing Organization Address City/State/[facility] Co de Phone Number HEALTHCARE LAB [address] [place] [address] * (ABNORMAL) POCT glucose meter (11/06/2024 7:31 PM EDT) [facility] POCT Glucose 359(H) 74 - 99 mg/dL [...] Comment 11/06/2024 7:32 PM EDT [facility] Cutter Operator Brick ID Nelda Gerber 11/07/19 7:32 PM EDT HEALTH[facility]ARE LAB Device ID [id number] 11/06/2024 7:32 PM EDT [facility] LAB Specimen Type POC Capillary 11/06/2024 7:32 PM EDT [facility] Blood Capillary blood specimen / Unknown 11/06/2024 7:31 PM EDT 11/06/2024 7:32 PM EDT Nathaly Nowak MD LAB POINT OF CARE TE ST DOCKED DEVICE UNSOLICITED RESULTS Final Result Performing Organization Address City/[facility] Co de Phone Number HEALTHCARE LAB [address] [place] [address] * (ABNORMAL) POCT glucose meter (11/06/2024 6:15 [...] Comment 11/06/2024 6:17 PM EDT [facility] Cutter Operator Brick ID Estefani Sheth 11/06/2024 6:17 PM EDT HEALTH[facility]ARE LAB Device ID [id number] 11/06/2024 6:17 PM EDT [facility] Specimen Type POC Capillary 11/06/2024 6:17 PM EDT [facility] Blood Capillary blood specimen / Unknown 11/06/2024 6:15 PM EDT 11/06/2024 6:17 PM EDT Nathaly Nowak MD LAB POINT OF CARE TE ST DOCKED DEVICE UNSOLICITED RESULTS Final Result Performing Organization Address City/[facility]/ZIP Co de Phone Number [facility] [address] [place] [address] * (ABNORMAL) POCT glucose meter (11/06/2024 4:57 [...] Comment 11/06/2024 4:58 PM EDT [facility] Cutter Operator Brick ID Estefani Sheth 11/06/2024 4:58 PM EDT [facility]ALTH[facility]ARE LAB Device ID [id number] 11/06/2024 4:58 PM EDT [facility] Specimen Type POC Capillary 11/06/2024 4:58 PM EDT [facility] Blood Capillary blood specimen / Unknown 11/06/2024 4:57 PM EDT 11/06/2024 4:58 PM EDT Nathaly Nowak MD LAB POINT OF CARE TE ST DOCKED DEVICE UNSOLICITED RESULTS Final Result Performing Organization Address City/State/[facility] Co de Phone Number HEALTH[facility]ARE LAB [address] [place] [address] * (ABNORMAL) POCT glucose meter (11/06/2024 2:08 PM EDT) [facility] POCT Glucose 253(H) 74 - 99 mg/dL [...] Comment 11/06/2024 2:09 PM EDT [facility] Cutter Operator Brick ID Brigitte Castellon 11/06/2024 2:09 PM EDT HEALTH[facility]ARE LAB Device ID [id number] 11/06/2024 2:09 PM EDT [facility] LAB Specimen Type POC Capillary 11/06/2024 2:09 PM EDT [facility] Blood Capillary blood specimen / Unknown 11/06/2024 2:08 PM EDT 11/06/2024 2:09 PM EDT Nathaly Nwoak MD LAB POINT OF CARE TE ST DOCKED DEVICE UNSOLICITED RESULTS Final Result Performing Organization Address [facility] Co de Phone Number HEALTHCARE LAB [address] [place] [address] * (ABNORMAL) POCT glucose meter (11/06/2024 12:27 PM EDT) [facility] POCT Glucose 228(H) 74 - 99 mg/dL [...] Comment 11/06/2024 12:28 PM EDT [facility]ALTH[facility] Cutter Operator Brick ID Jacinta Galloway 11/06/2024 12:28 PM EDT HEALTHCARE LAB Device ID [id number] 11/06/2024 12:28 PM EDT [facility]ALTH[facility]ARE LAB Specimen Type POC Capillary 11/06/2024 12:28 PM EDT [facility] Blood Capillary blood specimen / Unknown 11/06/2024 12:27 PM EDT 11/06/2024 12:28 PM EDT Nathaly Nowak MD LAB POINT OF CARE TE ST DOCKED DEVICE UNSOLICITED RESULTS Final Result Performing Organization Address [facility] Co de Phone Number HEALTHCARE LAB [address] [place] [address] * (ABNORMAL) Fungal Culture, Tissue and ISIDRO (11/06/2024 11:34 AM EDT) Pathologist [facility] Culture Reading Mycological 4 Weeks Rare [place] Sana parapsilosis (A) 12/05/2024 8:36 AM EDT [facility] Comment: This isolate has been identified using the FDA Approved [employer] [place] System The organism value for this result has been updated. These results have been appended to the previously preliminary verified report. Edited result: Previously reported as Yeast on 11/11/2024 at 1317 EDT. ISIDRO No fungal elements seen 12/05/2024 8:36 AM EDT [facility] Tissue Topography unknown / Unknown 11/06/2024 [...] results. Nathaly Nowak MD LAB MICROBIOLOGY - [facility] Final Result [facility] [address] [place] [address] * (ABNORMAL) Tissue Culture and Gram Stain (11/06/2024 11:34 AM EDT) Culture Moderate Growth 7:35 AM EDT [facility] Culture 2+ Enterobacter cloacae complex(A) ANGÉLICA 11/15/2024 7:35 AM EDT [facility] Comment: This isolate has been identified using the FDA Approved [employer] [place] System The organism value for this result has been updated. These results have been appended to the previously preliminary verified report. Edited result: Previously reported as Gram Negative Jesus on 11/07/2024 at 1434 EDT. Culture 2+ Streptococcus mitis/oralis group(A) ANGÉLICA 11/15/2024 7:35 AM EDT [facility] Comment: This isolate has been identified using the FDA Approved [employer] [place] System The organism value for this result has been updated. These results have been appended to the previously preliminary verified report. Culture 2+ Pasteurella stomatis(A) ANGÉLICA 11/15/2024 7:35 AM EDT [facility] Comment: This result was determined by MALDI tof mass spectrometry using the [employer] database and is for research use only. The organism value for this result has been updated. These results have been appended to the previously preliminary verified report. Gram Stain Result Few Gram negative rods(A) 11/15/2024 7:35 AM EDT [facility] Gram Stain Result Moderate Polymorphonuclear leukocytes(A) 11/15/2024 7:35 AM EDT [facility] Gram Stain Result Few Gram positive cocci in pairs(A) 11/15/2024 7:35 AM EDT [facility] Tissue Topography unknown / Unknown 11/06/2024 11:34 AM EDT 11/06/2024 12:18 PM EDT Comment:Pre-op diagnosis: Surgical wound infection [T81.49XA] Narrative [facility] - 11/15/2024 7:35 AM EDT [...] Nowak MD LAB MICROBIOLOGY - GENERAL ORDAna [facility] Edited Result - Final [facility] [address] [place] [address] * (ABNORMAL) Anaerobic Culture (11/06/2024 11:34 AM EDT) Culture No anaerobes isolated 11/14/2024 1:25 PM EDT [facility] Culture Staphylococcus pseudintermedius( A) 11/14/2024 1:25 PM EDT [facility] Comment: This result was determined by MALDI tof mass spectrometry using the [employer] database and is for research use only. This is an appended report. These results have been appended to a previously final verified report. Tissue Topography unknown / Unknown 11/06/2024 11:34 AM EDT 11/06/2024 12:18 PM EDT Comment:Pre-op diagnosis: Surgical wound infection [T81.49XA] Narrative [facility] - 11/14/2024 1:25 PM EDT [...] Nowak MD LAB MICROBIOLOGY - GENERAL ORDE [facility] Edited Result - Final [facility] [address] [place] [address] * (ABNORMAL) Routine Culture and Gram Stain (11/06/2024 11:29 AM EDT) Culture Moderate Growth 5:29 PM EDT [facility] Culture Enterobacter cloacae complex(A) 11/08/2024 5:29 PM EDT [facility] Comment: This isolate has been identified using the FDA Approved [email or web address] [place] System For susceptibility results refer to: - [id number] The organism value for this result has been updated. These results have been appended to the previously preliminary verified report. Gram Stain Result No polymorphonuclear leukocytes seen 11/08/2024 5:29 PM EDT [facility] Gram Stain Result No organisms seen 11/08/2024 5:29 PM EDT [facility] Swab Topography unknown / Unknown 11/06/2024 11:29 AM EDT 11/06/2024 12:19 PM EDT Comment:Pre-op diagnosis: Surgical wound infection [T81.49XA] Nathaly Nowak MD LAB MICROBIOLOGY - GENERAL ORDE RABONEIDA Final Result Performing Organization Address [facility]/ZIP Co de Phone Number [facility] [address] [place] [address] * Fungal Culture, Routine (11/06/2024 11:29 AM EDT) Culture No Fungal Growth at 1 Week 11/13/2024 8:29 AM EDT [facility] Swab Topography unknown / Unknown 11/06/2024 11:29 AM EDT 11/06/2024 12:19 PM EDT Comment:Pre-op diagnosis: Surgical wound infection [T81.49XA] Nathaly Nowak MD LAB MICROBIOLOGY - GENERAL ORDE LAM Final Result Performing Organization Address [facility] [place] [address] * (ABNORMAL) Anaerobic Culture (11/06/2024 11:29 AM EDT) Culture No anaerobes isolated 11/14/2024 1:25 PM EDT [facility] Culture Streptococcus mitis/oralis group(A) 11/14/2024 1:25 PM EDT [facility] Comment: This result was determined by MALDI tof mass spectrometry using the [employer] database and is for research use only. The organism value for this result has been updated. These results have been appended to the previously preliminary verified report. This is a corrected result. Previous organism was Mixed skin clifton on 11/10/2024 at 0718 EDT. Culture Staphylococcus pseudintermedius( A) 11/14/2024 1:25 PM EDT [facility] Comment: This isolate has been identified using the FDA Approved [employer] [place] System This is an appended report. These results have been appended to a previously final verified report. Swab Topography unknown / Unknown 11/06/2024 11:29 AM EDT 11/06/2024 12:19 PM EDT Comment:Pre-op diagnosis: Surgical wound infection [T81.49XA] Narrative [facility] - 11/14/2024 1:25 PM EDT [...] GENERAL ORDAna FRITZ Edited Result - Final [facility] [address] [place] [address] * Routine Culture and Gram Stain (11/06/2024 11:28 AM EDT) Culture No growth at day 4 2024 11:24 AM EDT [facility] Gram Stain Result No organisms seen 11/10/2024 11:24 AM EDT [facility] Gram Stain Result No polymorphonuclear leukocytes seen 11/10/2024 11:24 AM EDT [facility] Swab Topography unknown / Unknown 11/06/2024 11:28 AM EDT 11/06/2024 12:20 PM EDT Comment:Pre-op diagnosis: Surgical wound infection [T81.49XA] Nathaly Nowak MD LAB MICROBIOLOGY - GENERAL ORDE LAM Final Result Performing Organization Address City/[facility]/ZIP Co de Phone Number [facility] [address] [place] [address] * Fungal Culture, Routine (11/06/2024 11:28 AM EDT) Culture No Fungal Growth at 1 Week 11/13/2024 8:29 AM EDT [facility] Swab Topography unknown / Unknown 11/06/2024 11:28 AM EDT 11/06/2024 12:20 PM EDT Comment:Pre-op diagnosis: Surgical wound infection [T81.49XA] Nathaly Nowak MD LAB MICROBIOLOGY - GENERAL ATIYA FRITZ Final Result Performing Organization Address City/[facility]/ZIP Co de Phone Number [facility] [address] [place] [address] * Anaerobic Culture (11/06/2024 11:28 AM EDT) Culture No growth at day 4 11/13/2024 12:53 PM EDT [facility] [facility] Swab Topography unknown / Unknown 11/06/2024 11:28 AM EDT 11/06/2024 12:20 PM EDT Comment:Pre-op diagnosis: Surgical wound infection [T81.49XA] us Nathaly Nowak MD LAB MICROBIOLOGY - GENERAL ATIYA RFITZ Final Result Performing Organization Address City/[facility]/ZIP Co de Phone Number [facility] [address] [place] [address] * (ABNORMAL) POCT glucose meter (11/06/2024 10:16 [...] 11/06/2024 10:18 AM EDT [facility] Cutter Operator Brick ID Lacy Griffin 11/07/19 10:18 AM EDT [facility] Device ID [id number] 11/06/2024 10:18 AM EDT [facility] Specimen Type POC Capillary 11/06/2024 10:18 AM EDT [facility] Blood Capillary blood specimen / Unknown 11/06/2024 10:16 AM EDT 11/06/2024 10:18 AM EDT Nathaly Nowak MD LAB POINT OF CARE TE ST DOCKED DEVICE UNSOLICITED RESULTS Final Result [facility] [address] [place] [address] * (ABNORMAL) POCT glucose meter (11/06/2024 5:58 AM EDT) [facility] POCT Glucose 182(H) 74 - 99 mg/dL [...] 11/06/2024 6:01 AM EDT [facility] Cutter Operator Brick ID Raj Laird 11/07/19 6:01 AM EDT [facility] Device ID [id number] 11/06/2024 6:01 AM EDT [facility] Specimen Type POC Capillary 11/06/2024 6:01 AM EDT [facility] Blood Capillary blood specimen / Unknown 11/06/2024 5:58 AM EDT 11/06/2024 6:01 AM EDT Nathaly Nowak MD LAB POINT OF CARE TE ST DOCKED DEVICE UNSOLICITED RESULTS Final Result Performing Organization Address City/[facility]/ZIP Co de Phone Number [facility] [address] [place] [address] * (ABNORMAL) POCT glucose meter (11/06/2024 5:36 [...] Comment 11/06/2024 5:38 AM EDT [facility] Cutter Operator Brick ID Shahid Sanches 11/06/2024 5:38 AM EDT [facility] Device ID [id number] 11/06/2024 5:38 AM EDT [facility] Specimen Type POC Capillary 11/06/2024 5:38 AM EDT [facility] Blood Capillary blood specimen / Unknown 11/06/2024 5:36 AM EDT 11/06/2024 5:38 AM EDT Nathaly Nowak MD LAB POINT OF CARE TE ST DOCKED DEVICE UNSOLICITED RESULTS Final Result Performing Organization Address City/[facility]/ZIP Co de Phone Number [facility] [address] [place] [address] * (ABNORMAL) Hemoglobin A1c (11/06/2024 1:07 AM EDT) Hemoglobin A1c 7.6(H) <5.7 % 11/06/2024 11:09 AM EDT [facility] Blood Venous blood specimen / Unknown Venipuncture / Unknown 11/06/2024 1:07 AM EDT 11/06/2024 1:26 AM EDT Narrative [facility] - 11/06/2024 11:09 AM EDT HA1C Interpretive Data: Diagnosis of Diabetes: Diabetic > or = 6.5% Pre-diabetic 5.7 to 6.4% Non-diabetic < or = 5.6% Glycemic Targets for Type I and Type II Diabetics: Non- Adults <7.0% Adults <6.0% Children and Adolescents <7.5% Source: [place] [employer]. Standards of medical care in diabetes,2017. Diabetes Care.2017:40 (suppl 1):S1-S135. Nathaly Nowak MD LAB BLOOD ORDERABLES Final Resu lt Performing Organization Address City/[facility] Co de Phone Number [facility] [address] [place] [address] * Blood Culture (Aerobic/Anaerobet Set) (11/06/2024 1:07 AM EDT) Culture No growth at day 5 11/11/2024 2:49 AM EDT [facility] Blood Structure of right hand / Unknown Venipuncture / Unknown 11/06/2024 1:07 AM EDT 11/06/2024 2:36 AM EDT Nathaly Nowak MD LAB MICROBIOLOGY - GENERAL ORDE RABONEIDA Final Result Performing Organization Address [facility] Co de Phone Number [facility] [address] [place] [address] * Blood Culture (Aerobic/Anaerobet Set) (11/06/2024 1:07 AM EDT) Culture No growth at day 5 11/11/2024 3:01 AM EDT [facility] Blood Structure of antecubital vein / Unknown Venipuncture / Unknown 11/06/2024 1:07 AM EDT 11/06/2024 2:36 AM EDT Nathaly Nowak MD LAB MICROBIOLOGY - GENERAL ORDE RABONEIDA Final Result Performing Organization Address [facility] Co de Phone Number [facility] [address] [place] [address] * (ABNORMAL) Basic metabolic panel (11/06/2024 1:07 AM EDT) Glucose, Plasma 207(H) 74 - 99 mg/dL 11/06/2024 1:41 AM EDT [facility] BUN, Plasma 20 8 - 23 mg/dL 11/06/2024 1:41 AM EDT [facility] Creatinine, Plasma 0.92 0.70 - 1.20 mg/dL 11/06/2024 1:41 AM EDT [facility] BUN/Creatinine Ratio 22 11/06/2024 1:41 AM EDT [facility] Sodium, Plasma 136 136 - 145 mmol/L 11/06/2024 1:41 AM EDT [facility] Potassium, Plasma 4.5 3.6 - 4.9 mmol/L 11/06/2024 1:41 AM EDT [facility] Chloride, Plasma 104 97 - 107 mmol/L 11/06/2024 1:41 AM EDT [facility] CO2, Plasma 22 22 - 29 mmol/L 11/06/2024 1:41 AM EDT [facility] Anion Gap 10 6 - 16 mmol/L 11/06/2024 1:41 AM EDT [facility] Total Calcium, Plasma 9.0 8.9 - 10.2 mg/dL 11/06/2024 1:41 AM EDT [facility] eGFRcr 92.3 mL/min/1.7 3m*2 11/06/2024 1:41 AM EDT [facility] Comment:Reported eGFRcr in m L/min/1.73m2 is based the CKD-EPI 2020 equation that does not use a race coefficient. Blood Venous blood specimen / Unknown Venipuncture / Unknown 11/06/2024 1:07 AM EDT 11/06/2024 1:12 AM EDT us Nathaly Nowak MD LAB BLOOD ORDERABLES Final Resu lt [facility] [address] [place] [address] * Phosphorus (11/06/2024 1:07 AM EDT) Phosphorus, Plasma 3.2 2.5 - 4.5 mg/dL 11/06/2024 1:41 AM EDT [facility] Blood Venous blood specimen / Unknown Venipuncture / Unknown 11/06/2024 1:07 AM EDT 11/06/2024 1:12 AM EDT Nathaly Nowak MD LAB BLOOD ORDERABLES Final Resu lt Performing Organization Address City/[facility]/ZIP Co de Phone Number [facility] [address] [place] [address] * Magnesium (11/06/2024 1:07 AM EDT) Magnesium, Plasma 2.2 1.9 - 2.4 mg/dL 11/06/2024 1:41 AM EDT [facility] Blood Venous blood specimen / Unknown Venipuncture / Unknown 11/06/2024 1:07 AM EDT 11/06/2024 1:12 AM EDT us Nathaly Nowak MD LAB BLOOD ORDERABLES Final Resu lt Performing Organization Address City/[facility]/ZIP Co de Phone Number [facility] [address] [place] [address] * (ABNORMAL) CBC (11/06/2024 1:07 AM EDT) [facility] WBC Count 9.70 3.70 - 10.30 10*3/uL LAB HEMATOLOGY METHOD 11/06/2024 1:19 AM EDT [facility] RBC Count 2.89(L) 4.60 - 6.10 10*6/uL LAB HEMATOLOGY METHOD 11/06/2024 1:19 AM EDT [facility] HGB 8.8(L) 13.7 - 17.5 g/dL LAB HEMATOLOGY METHOD 11/06/2024 1:19 AM EDT [facility] HCT 26.2(L) 40.0 - 51.0 % LAB HEMATOLOGY METHOD 11/06/2024 1:19 AM EDT [facility] Platelet Count 542(H) 155 - 369 10*3/uL LAB HEMATOLOGY METHOD 11/06/2024 1:19 AM EDT [facility] MCV 91 79 - 98 fL LAB HEMATOLOGY METHOD 11/06/2024 1:19 AM EDT [facility] MCH 30.4 26.0 - 32.0 pg LAB HEMATOLOGY METHOD 11/06/2024 1:19 AM EDT [facility] MCHC 33.6 30.7 - 35.5 g/dL LAB HEMATOLOGY METHOD 11/06/2024 1:19 AM EDT [facility] RDW 13.2 11.5 - 14.5 % LAB HEMATOLOGY METHOD 11/06/2024 1:19 AM EDT [facility] MPV 8.7(L) 8.8 - 12.5 fL LAB HEMATOLOGY METHOD 11/06/2024 1:19 AM EDT [facility] nRBC 0.0 <=0.0 per 100 WBCs LAB HEMATOLOGY METHOD 11/06/2024 1:19 AM EDT [facility] Blood Venous blood specimen / Unknown Venipuncture / Unknown 11/06/2024 1:07 AM EDT 11/06/2024 1:12 AM EDT us Nathaly Nowak MD LAB BLOOD ORDERABLES Final Resu lt Performing Organization Address City/[facility]/ZIP Co de Phone Number [facility] [address] [place] [address] * Gold Top (11/06/2024 12:58 AM EDT) Extra Hold for add-ons 11/06/2024 3:21 AM EDT [facility] Comment:Auto resulted. Blood Venous blood specimen / Unknown 11/06/2024 12:58 AM EDT 11/06/2024 1:13 AM EDT us Nathaly Nowak MD LAB BLOOD ORDERABLES Final Resu lt Performing Organization Address City/[facility]/ZIP Co de Phone Number [facility] [address] [place] [address] * Gold Top (11/06/2024 12:58 AM EDT) Extra Hold for add-ons 11/06/2024 3:21 AM EDT [facility] Comment:Auto resulted. Blood Venous blood specimen / Unknown 11/06/2024 12:58 AM EDT 11/06/2024 1:13 AM EDT us Nathaly Nowak MD LAB BLOOD ORDERABLES Final Resu lt Performing Organization Address City/[facility]/ZIP Co de Phone Number [facility] [address] [place] [address] * Light Green Top (11/06/2024 12:58 AM EDT) Extra Hold for add-ons 11/06/2024 3:21 AM EDT [facility] Comment:Auto resulted. Blood Venous blood specimen / Unknown 11/06/2024 12:58 AM EDT 11/06/2024 1:13 AM EDT us Nathaly Nowak MD LAB BLOOD ORDERABLES Final Resu lt Performing Organization Address [facility] Co de Phone Number [facility] [address] [place] [address] * Light Blue Top (11/06/2024 12:58 AM EDT) Extra Hold for add-ons 11/06/2024 3:21 AM EDT [facility] Comment:Auto resulted. Blood Venous blood specimen / Unknown 11/06/2024 12:58 AM EDT 11/06/2024 1:13 AM EDT us Nathaly Nowak MD LAB BLOOD ORDERABLES Final Resu lt Performing Organization Address City/[facility] Co de Phone Number [facility] [address] [place] [address] * Light Blue Top (11/06/2024 12:58 AM EDT) Extra Hold for add-ons 11/06/2024 3:21 AM EDT [facility] Comment:Auto resulted. Blood Venous blood specimen / Unknown 11/06/2024 12:58 AM EDT 11/06/2024 1:13 AM EDT Nathaly Nowak MD LAB BLOOD ORDERABLES Final Resu lt [facility] [address] [place] [address] * (ABNORMAL) POCT glucose meter (11/06/2024 12:45 [...] Comment 11/06/2024 12:48 AM EDT [facility] Cutter Operator Brick ID aRj Laird 11/07/19 12:48 AM EDT [facility] Device ID [id number] 11/06/2024 12:48 AM EDT [facility] Specimen Type POC Capillary 11/06/2024 12:48 AM EDT [facility] Blood Capillary blood specimen / Unknown 11/06/2024 12:45 AM EDT 11/06/2024 12:48 AM EDT Nathaly Nowak MD LAB POINT OF CARE TE ST DOCKED DEVICE UNSOLICITED RESULTS Final Result Performing Organization Address City/[facility]/ZIP Co de Phone Number [facility] [address] [place] [address] documented in this encounter Visit Diagnoses Diagnosis [...] Kahn Bo) 0839 (Given - Provider: Devora Kahn Bo)1226 [...] Provider: Devora Bo)1805 (Given - Provider: Devora Kahn Bo) [...] Devora Bo) 0023 (Given - Provider: Jonathan Vael RN)1156 (Not Given - Provider: Devora Bo [...] mL/hr, Routine 0939 (Given - Provider: Devora Bo)4268 (Given - Provider: Jonathan Vale RN - Comment: previous antibiotic not finished) 0823 (Given - Provider: Devora Bo) PRN Medication [...] Yadira 11/14/24 at 1804, Routine, nausea, vomiting ondansetron (Zofran) [...] documented as of this encounter Care Teams Tamper Operator Relationship Specialty Start Date End Date Asad Victor MD [address] [place] [address] PCP - General 10/07/22 documented as of this encounter
--- OUTSIDE RECORDS SUMMARY | 2024-11-06 10:47 | XMS_ITS | Encounter Summary ---
Author Organization Healthcare Address [address] [place] [address] Care Team Providers Care Adoption Social Worker Name Role Phone Asad Victor MD Primary Care Provider + [phone] Reason for Visit * Auth/Cert (Routine) Specialty Diagnoses / Procedures Referred By Contac t Referred To Contact Diagnoses Wound infection Post-op Vasc Sx wounds - sx on 10/17 at Nathaly Nowak MD [address] [facility] [address] [place] [address] Phone: tel: fax: [facility] Emergency Department [address] [place] [address] Phone: tel: Referral ID Status Reason Start Date Expiration Date Visits Re quested Visits Authorized [id number] 1 1 Encounter Details Date Type Department Care Team (Late st Contact Info) Description 11/06/2024 10:47 AM EDT Anesthesia Event [facility] OPERATING ROOM [address] [place] [address] Bill Sue MD [address] [place] [address] Sabrina Mckeon PA [address] [facility] [address] [place] [address] Anesthesia Record Procedure Summary Procedure [...] drink first t dino in the morning (EYE-BATCH STILL OPERATOR) to steady your nerves or to get rid of a hangover? 0 10/18/2021 CAGE Questionnaire Score 0 022 Utilities Answer Date Recorded In the past 12 months has th e [employer], gas, oil, or water company threatened to [...] and Staff Patient location during procedure: OR WHEEL AND AXLE INSPECTOR: Asad Lechuga CRNA, DNP Performed: WHEEL AND AXLE INSPECTOR Patient Condition Indications for airway management: [...] / [place] OR Surgeons: Nathaly Nowak MD [facility] Mono Bobby is a 64 y.o. [...] Abnormal Ventricular Rate 85 Atrial Rate 85 [place] Interval 146 QRSD Interval 128 QT Interval 390 QTC Interval 464 P [place] 52 R [place] 263 T Wave [place] 57 Diagnosis Atrial-sensed ventricular-paced rhythm Diagnosis Biventricular [...] is no recent study available for direct jxmp-lq-xvyt comparison. [facility]: Pre-operative CIED Report Assessment and Sara- Procedural Reommendations: Name: Mono Bobby Date: 10/17/2024 : 1960 Age: 64 y.o. Patient has a Provider Relations Representative: Berger CASING TIER-PM Remaining battery longevity adequate. Lead integrity test [...] RVR s/p CABG), CAD (CAD s/p multiple ND's and 3V CABG02/2019, 2 stents prior to CABG), carotid artery disease (carotid artery disease s/p R CEA 2016), dysrhythmias (3rd degree AV block CASING TIER-P placed 08/2023 for [place]back with 11 sec pause), hyperlipidemia, pacemaker and PVD. Does not have angina, CHF, murmur, orthopnea, syncope or valvular heart disease. hypertension: Cardio additional comments: Follows with OSH Card last seen 09/25/24 ([place]) . Respiratory: home oxygen (2L). no asthma: [...] ENDARTERECTOMY N/A 2017 Endarterectomy Carotid Artery from [facility] CORONARY ANGIOPLASTY Left Coronary Angiography With Concomitant Left Heart Catheterization from [facility] CORONARY ARTERY BYPASS GRAFT N/A 2018 3V ELBOW SURGERY Right ENDARTERECTOMY Left 10/17/2024 common/SFA/Profunda thromboendarterectomy, EIA/COMMUNICATIONS EQUIPMENT OPERATOR stent HERNIA REPAIR KNEE ARTHROSCOPY Left VASCULAR SURGERY Left 09/21/2024 COMMUNICATIONS EQUIPMENT OPERATOR pseudoaneurym injection [5] Social History Tobacco [...] Description 12/19/2024 9:00 AM EDT Office Visit [facility] [address] 5th Floor [address] [place] [address] Nathaly Nowak MD [address] [facility] [address] [place] [address] documented as of this encounter Goals Goal Patient Goal Type Associated Problems Recent Progress Patient-Stated? Author Autogenera louise Goal Care Plan Autogenerated Problem No BogdanEkta augustine documented as of this encounter Procedures Procedure Name Priority Date/Time Associated Diagnosis Comments PB ANESTHESIA PLACEHOLDER Routine 11/06/2024 10:58 AM EDT IN AN ELECTIVE ENDOTRACHEAL AIRWAY Routine 11/06/2024 10:58 AM EDT documented in this encounter Results * IN AN ELECTIVE ENDOTRACHEAL AIRWAY, PB ANESTHESIA PLACEHOLDER (11/06/2024 10:58 AM EDT) Narrative Asad Lechuga CRNA, DNP - 11/06/2024 10:58 AM EDT Asad Lechuga CRNA, DNP 11/06/2024 11:05 AM Airway Date/Time: 11/06/2024 10:58 AM Reason: elective Airway not difficult General Information and Staff Patient location during procedure: OR WHEEL AND AXLE INSPECTOR: Asad Lechuga CRNA, DNP Performed: WHEEL AND AXLE INSPECTOR Patient Condition Indications for airway management: [...] documented as of this encounter Care Teams Adoption Social Worker Relationship Specialty Start Date End Date Asad Victor MD [address] [place] [address] PCP - General 10/07/22 documented as of this encounter
--- OUTSIDE RECORDS SUMMARY | 2024-11-18 13:10 | XMS_ITS | Encounter Summary ---
Author Organization [employer] ([place], [place], [place], [place]) Address [address] [place] [address] Care Team Providers Care Used Car Lot Attendant Name Role Phone Unavailable Primary Care Provider Unavailabl e Reason for Visit * Reason Comments Wound Care Encounter Details Date Type Department Care Team (Late st Contact Info) Description 11/18/2024 1:10 PM EDT Office Visit [facility] 1 [place] [address] Jerry Monroe Jr., MD [address] [place] [address] Non-pressure chronic ulcer of skin of [...] health nurse( if you have home health) [facility] for an appointment. documented in this [...] upper leg. Patient was admitted to the [facility] on November 05, 2024 and [...] Description 12/20/2024 3:30 PM EDT Clinical Support [address] [address] 12/23/2024 4:00 PM EDT Clinical Support [address] [address] 12/25/2024 3:00 PM EDT Office Visit [address] [address] Jerry Monroe Jr., MD [address] [place] [address] 12/27/2024 3:15 PM EDT Clinical Support [address] [address] 12/30/2024 3:30 PM EDT Clinical Support [address] [address] 01/01/2025 3:00 PM EDT Office Visit [address] [address] Jerry Monroe Jr., MD [address] [place] [address] 01/03/2025 3:30 PM EDT Clinical Support [facility] [address] [place] [phone] documented as of this encounter Procedures Procedure Name Priority Date/Time Associated Diagnosis Comments [place] DEBRIDEMENT MUSCLE &/FASCIA EA ADDL 20 SQ CM Routine 11/18/2024 1:10 PM EDT 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) Localized tissue (HCC) Other specified local infections of the skin and subcutaneous tissue OH DEBRIDEMENT MUSCLE &/FASCIA EA ADDL 20 SQ CM Routine 11/18/2024 1:10 PM EDT 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) Localized tissue (HCC) Other specified local infections of the skin and subcutaneous tissue OH DEBRIDEMENT MUSCLE &/FASCIA 1ST 20 SQ CM/< Routine 11/18/2024 1:10 PM EDT 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) Localized tissue (HCC) Other specified local infections of the skin and subcutaneous tissue OH DEBRIDEMENT MUSCLE &/FASCIA EA ADDL 20 SQ CM Routine 11/18/2024 1:10 PM EDT 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) Localized tissue (HCC) Other specified local infections of the skin and subcutaneous tissue OH DEBRIDEMENT MUSCLE &/FASCIA EA ADDL 20 SQ CM Routine 11/18/2024 1:10 PM EDT 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) Localized tissue (HCC) Other specified local infections of the skin and subcutaneous tissue OH DEBRIDEMENT MUSCLE &/FASCIA 1ST 20 SQ CM/< Routine 11/18/2024 1:10 PM EDT 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
--- OUTSIDE RECORDS SUMMARY | 2024-11-20 14:15 | XMS_ITS | Encounter Summary ---
Author Organization [employer] ([place], [place], [place], [place]) Address [address] [place] [address] Care Team Providers Care Corporate Trust Officer Name Role Phone Unavailable Primary Care Provider Unavailabl e Reason for Visit * Reason Comments Wound Care Nurse visit for woun d vac change, wound care and dressing change Encounter Details Date Type Department Care Team (Late st Contact Info) Description 11/20/2024 2:15 PM EDT [facility] 1 [place] [address] Jerry Monroe Jr., MD [address] [place] [address] Non-pressure chronic ulcer of skin of [...] Description 12/20/2024 3:30 PM EDT Clinical Support [address] [address] 12/23/2024 4:00 PM EDT Clinical Support [address] [address] 12/25/2024 3:00 PM EDT Office Visit [address] [address] Jerry Monroe Jr., MD [address] [place] [address] 12/27/2024 3:15 PM EDT Clinical Support [address] [address] 12/30/2024 3:30 PM EDT Clinical Support [address] [address] 01/01/2025 3:00 PM EDT Office Visit [address] [address] Jerry Monroe Jr., MD [address] [place] [address] 01/03/2025 3:30 PM EDT Clinical Support [address] [address] documented as of this encounter Results * Wound Treatment (11/22/2024 5:14 PM EDT) Jerry Monroe Jr., MD NURSING PATHWAYS ORDERABL ES Final Result documented in this encounter Visit Diagnoses Diagnosis 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
--- OUTSIDE RECORDS SUMMARY | 2024-11-22 16:15 | XMS_ITS | Encounter Summary ---
Author Organization [employer] ([place], [place], [place], [place]) Address [address] [place] [address] Care Team Providers Care Senior Science Consultant Name Role Phone Unavailable Primary Care Provider Unavailabl e Reason for Visit * Reason Comments Wound Care Encounter Details Date Type Department Care Team (Late st Contact Info) Description 11/22/2024 4:15 PM EDT Clinical Support [facility] 1 [place] [address] Jerry Monroe Jr., MD [address] [place] [address] Non-pressure chronic ulcer of skin of [...] Description 12/20/2024 3:30 PM EDT Clinical Support [facility] [place] 1 [place] [address] 12/23/2024 4:00 PM EDT Clinical Support [facility] 1 [place] [address] 12/25/2024 3:00 PM EDT Office Visit [facility] [place] 1 [place] [address] Jerry Monroe Jr., MD [address] [place] [address] 12/27/2024 3:15 PM EDT Clinical Support [facility] 1 [place] [address] 12/30/2024 3:30 PM EDT Clinical Support [facility] 1 [place] [address] 01/01/2025 3:00 PM EDT Office Visit [facility] 1 [place] [address] Jerry Monroe Jr., MD [address] [place] [address] 01/03/2025 3:30 PM EDT Clinical Support [facility] [place] 1 [place] [address] documented as of this encounter Procedures Procedure [...]
--- OUTSIDE RECORDS SUMMARY | 2024-11-27 14:20 | XMS_ITS | Encounter Summary ---
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) Procedures Wound Treatment Jerry Monroe Jr., MD [address] [place] [address] Phone: tel: fax: Referral ID Status Reason Start Date Expiration Date V isits Requested Visits Authorized [id number] New Request 11/27/2024 11/27/2025 3 3 Reason for Visit * Reason Comments Wound Care Encounter Details Date Type Department Care Team (Late st Contact Info) Description 11/27/2024 2:20 PM EDT Office Visit [facility] 1 [place] [address] Jerry Monroe Jr., MD [address] [place] [address] Non-pressure chronic ulcer of skin of [...] line. Patient is getting daily infusions at [facility] through his PICC line for antibiotics. [...] the correct patient, procedure, equipment, application support manager, and site/side marked as required. [...] the correct patient, procedure, equipment, application support manager, and site/side marked as required. [...] Description 12/20/2024 3:30 PM EDT Clinical Support [facility] 1 [place] [address] 12/23/2024 4:00 PM EDT Clinical Support [facility] 1 [place] [address] 12/25/2024 3:00 PM EDT Office Visit [facility] 1 [place] [address] Jerry Monroe Jr., MD [address] [place] [address] 12/27/2024 3:15 PM EDT Clinical Support [facility] 1 [place] [address] 12/30/2024 3:30 PM EDT Clinical Support [address] [address] 01/01/2025 3:00 PM EDT Office Visit [facility] 1 [place] [address] Jerry Monroe Jr., MD [address] [place] [address] 01/03/2025 3:30 PM EDT Clinical Support [facility] 1 [place] [address] documented as of this encounter Procedures Procedure [...] the correct patient, procedure, equipment, application support manager, and site/side marked as required. [...] the correct patient, procedure, equipment, application support manager, and site/side marked as required. [...]
--- OUTSIDE RECORDS SUMMARY | 2024-11-29 16:00 | XMS_ITS | Encounter Summary ---
Author Organization [employer] ([place], [place], [place], [place]) Address [address] [place] [address] Care Team Providers Care Document Control Supervisor Name Role Phone Unavailable Primary Care Provider Unavailabl e Reason for Visit * Reason Comments Wound Care Encounter Details Date Type Department Care Team (Late st Contact Info) Description 11/29/2024 4:00 PM EDT Clinical Support [facility] 1 [place] [address] Jerry Monroe Jr., MD [address] [place] [address] Social History Tobacco Use Types Packs/Day [...] health nurse( if you have home health) [facility] * [...] Description 12/20/2024 3:30 PM EDT [facility] 1 [place] [address] 12/23/2024 4:00 PM EDT [facility] 1 [place] [address] 12/25/2024 3:00 PM EDT [facility] 1 [place] [address] Jerry Monroe Jr., MD [address] [place] [address] 12/27/2024 3:15 PM EDT Clinical Support [address] [address] 12/30/2024 3:30 PM EDT [facility] 1 [place] [address] 01/01/2025 3:00 PM EDT Office Visit [address] [address] Jerry Monroe Jr., MD [address] [place] [address] 01/03/2025 3:30 PM EDT [facility] 1 [place] [address] documented as of this encounter Visit Diagnoses Not on filedocumented in this encounter
--- OUTSIDE RECORDS SUMMARY | 2024-12-02 14:15 | XMS_ITS | Encounter Summary ---
Author Organization [employer] ([place], [place], [place], [place]) Address [address] [place] [address] Care Team Providers Care Financial Consultant Name Role Phone Unavailable Primary Care Provider Unavailabl e Reason for Visit * Reason Comments Wound Care Nurse visit for woun d vac and dressing change, wound care Encounter Details Date Type Department Care Team (Late st Contact Info) Description 12/02/2024 2:15 PM EDT Clinical Support [facility] 1 [place] [address] Jerry Monroe Jr., MD [address] [place] [address] Non-pressure chronic ulcer of skin of [...] Description 12/20/2024 3:30 PM EDT Clinical Support [facility] [place] 1 [place] [address] 12/23/2024 4:00 PM EDT Clinical Support [facility] [place] 1 [place] [address] 12/25/2024 3:00 PM EDT Office Visit [facility] [place] 1 [place] [address] Jerry Monroe Jr., MD [address] [place] [address] 12/27/2024 3:15 PM EDT Clinical Support [facility] [place] 1 [place] [address] 12/30/2024 3:30 PM EDT Clinical Support [facility] [place] 1 [place] [address] 01/01/2025 3:00 PM EDT Office Visit [facility] 1 [place] [address] Jerry Monroe Jr., MD [address] [place] [address] 01/03/2025 3:30 PM EDT Clinical Support [facility] 1 [place] [address] documented as of this encounter Visit Diagnoses Diagnosis 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
--- OUTSIDE RECORDS SUMMARY | 2024-12-04 13:40 | XMS_ITS | Encounter Summary ---
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 1 [place] [address] Jerry Monroe Jr., MD [address] [place] [address] Non-pressure chronic ulcer of skin of [...] Granulation;Sloughing Saar-Wound Assessment Scarred Wound Length (cm) 6.2 cm [...] upper leg. Patient was admitted to the [facility] on November 05, 2024 and dischargedon November [...] getting daily infusions at [facility] through his PICC line for antibiotics. [...] verified the correct patient, procedure, equipment, manager decision support, and site/side marked as required. Debridement [...] verified the correct patient, procedure, equipment, manager decision support, and site/side marked as required. Debridement [...] Description 12/20/2024 3:30 PM EDT Clinical Support [facility] 1 [place] [phone] 12/23/2024 4:00 PM EDT Clinical Support [facility] 1 [place] [address] 12/25/2024 3:00 PM EDT Office Visit [facility] 1 [place] [address] Jerry Monroe Jr., MD [address] [place] [address] 12/27/2024 3:15 PM EDT Clinical Support [facility] 1 [place] [address] 12/30/2024 3:30 PM EDT Clinical Support [facility] 1 [place] [address] 01/01/2025 3:00 PM EDT Office Visit [facility] 1 [place] [address] Jerry Monroe Jr., MD [address] [place] [address] 01/03/2025 3:30 PM EDT Clinical Support [facility] 1 [place] [address] documented as of this encounter Procedures Procedure Name Priority Date/Time Associated Diagnosis Comments [place] DEBRIDEMENT MUSCLE &/FASCIA EA ADDL 20 SQ CM Routine 12/04/2024 1:40 PM EDT 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) Localized tissue (HCC) Other specified local infections of the skin and subcutaneous tissue [place] DEBRIDEMENT MUSCLE &/FASCIA 1ST 20 SQ CM/< Routine 12/04/2024 1:40 PM EDT 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) Localized tissue (HCC) Other specified local infections of the skin and subcutaneous tissue [place] DEBRIDEMENT MUSCLE &/FASCIA EA ADDL 20 SQ CM Routine 12/04/2024 1:40 PM EDT 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 Debridement [...] MD PROCEDURE/MINOR SURGICAL ORDERABLES Final Result * [place] DEBRIDEMENT MUSCLE &/FASCIA 1ST 20 SQ CM/<, [place] DEBRIDEMENT MUSCLE &/FASCIA EA ADDL 20SQ CM [...] verified the correct patient, procedure, equipment, manager decision support, and site/side marked as required. Debridement [...]
--- OUTSIDE RECORDS SUMMARY | 2024-12-09 15:30 | XMS_ITS | Encounter Summary ---
Author Organization [email or web address] ([place], [place], [place], [place]) Address [address] [place] [address] Care Team Providers Care Associate Store Leader Name Role Phone Unavailable Primary Care Provider Unavailabl e Reason for Visit * Reason Comments Wound Care Encounter Details Date Type Department Care Team (Late st Contact Info) Description 12/09/2024 3:30 PM EDT Clinical Support [facility] 1 [place] [address] Jerry Monroe Jr., MD [address] [place] [address] Non-pressure chronic ulcer of skin of [...] Description 12/20/2024 3:30 PM EDT Clinical Support [facility] Care [address] [address] 12/23/2024 4:00 PM EDT Clinical Support [address] [address] 12/25/2024 3:00 PM EDT Office Visit [address] [address] Jerry Monroe Jr., MD [address] [place] [address] 12/27/2024 3:15 PM EDT Clinical Support [address] [address] 12/30/2024 3:30 PM EDT Clinical Support [facility] Care [address] [address] 01/01/2025 3:00 PM EDT Office Visit [address] [address] Jerry Monroe Jr., MD [address] [place] [address] 01/03/2025 3:30 PM EDT Clinical Support [address] [address] documented as of this encounter Procedures Procedure [...]
--- OUTSIDE RECORDS SUMMARY | 2024-12-11 14:40 | XMS_ITS | Encounter Summary ---
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) Procedures Wound Treatment Jerry Monroe Jr., MD [address] [place] [address] Phone: tel: fax: Referral ID Status Reason Start Date Expiration Date V isits Requested Visits Authorized [id number] New Request 12/11/2024 12/11/2025 1 1 Reason for Visit * Reason Comments Wound Care Encounter Details Date Type Department Care Team (Late st Contact Info) Description 12/11/2024 2:40 PM EDT Office Visit [facility] 1 [place] [address] Jerry Monroe Jr., MD [address] [place] [address] Non-pressure chronic ulcer of skin of [...] upper leg. Patient was admitted to the [facility] on November 05, 2024 and [...] line. Patient is getting daily infusions at [facility] through his PICC line for antibiotics. [...] provider verified the correct patient, procedure, equipment, clerical and office support workers, and site/side marked as required. Debridement Details [...] provider verified the correct patient, procedure, equipment, clerical and office support workers, and site/side marked as required. Debridement Details [...] Description 12/20/2024 3:30 PM EDT Clinical Support [address] [address] 12/23/2024 4:00 PM EDT Clinical Support [address] [address] 12/25/2024 3:00 PM EDT Office Visit [address] [address] Jerry Monroe Jr., MD [address] [place] [address] 12/27/2024 3:15 PM EDT Clinical Support [address] [address] 12/30/2024 3:30 PM EDT Clinical Support [address] [address] 01/01/2025 3:00 PM EDT Office Visit [address] [address] Jerry Monroe Jr., MD [address] [place] [address] 01/03/2025 3:30 PM EDT Clinical Support [address] [phone] documented as of this encounter Procedures Procedure Name Priority Date/Time Associated Diagnosis Comments WOUND TREATMENT Routine 12/11/2024 6:05 PM EDT 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 Debridement Details [...] GA DEBRIDEMENT MUSCLE &/FASCIA EA ADDL 20SQ CM [...] provider verified the correct patient, procedure, equipment, clerical and office support workers, and site/side marked as required. Debridement Details [...]
--- OUTSIDE RECORDS SUMMARY | 2024-12-13 12:00 | XMS_ITS | Encounter Summary ---
Author Organization [employer] ([place], [place], [place], [place]) Address [address] [place] [address] Care Team Providers Care Animal Breeder Name Role Phone Unavailable Primary Care Provider Unavailabl e Reason for Visit * Reason Comments Wound Care Encounter Details Date Type Department Care Team (Late st Contact Info) Description 12/13/2024 12:00 PM EDT Clinical Support [facility] 1 [place] [address] Jerry Monroe Jr., MD [address] [place] [address] Non-pressure chronic ulcer of skin of [...] Sign Reading Time Taken Comments Blood Pressure 176/80 12/13/2024 12:31 PM EDT Pulse 72 12/13/2024 12:31 PM EDT Temperature 36.4 C (97.5 F) 12/13/2024 12:31 PM EDT Respiratory Rate - - Oxygen Saturation - - Inhaled Oxygen Concentration - - Weight - - Height - - Body Mass Index - - documented in this encounter Progress Notes * Candice Bo RN - 12/13/2024 12:00 PM EDT Non-provider visit today for wound care. Removed pt's previously ordered dressings. Removed from left groin: 1 piece black foam, 1 piece white foam Removed from left le piece black foam, 1 piece white foam Applied to left groin: 1 piece black foam, 1 piece white foam Applied to left le piece black foam, 1 piece white foam Orders below followed for wound care: Remove dressings. Clean wound with 0.9 % [...] to be changed 3 times a week. Use above orders for all non-provider visits. Pt tolerated wound care well. Policy procedures followed. Patient instructed to call wound center for any concerns. Plan of Care: non-provider visits for wound care in clinic, pt to follow up with provider as previously scheduled * Candice Bo RN - 12/13/2024 12:00 PM EDT Images from the original note were not included. Attached media from the original note were not included. 12/13/24 1247 Wound 11/18/24 Groin Left Date First Assessed/Time First Assessed: 11/18/24 1508 Wound Approximate Age at First Assessment (Weeks): 4 weeks Location: Groin Wound Location Orientation: Left Wound Image Images linked Site Assessment Granulation;Sloughing Sara-Wound Assessment Scarred Wound Length (cm) 6.4 cm Wound Width (cm) 5.6 cm Wound Surface Area (cm^2) 28.15 cm^2 Wound Depth (cm) 4.5 cm Wound Volume (cm^3) 84.446 cm^3 Tunneling 2.5 cm Tunneling Clock Position of Wound 10 Margins Well-defined edges Wound Healing % 68 Drainage Description Sanguineous Drainage Amount Moderate Odor None Wound Bed Granulation (%) 80 % Wound Bed Slough (%) 20 % Non-staged Wound Description Full thickness * Candice Bo RN - 12/13/2024 12:00 PM EDT Images from the original note were not included. Attached media from the original note were not included. 12/13/24 1248 Wound 11/18/24 Leg upper Left;Medial Date First Assessed/Time First Assessed: 11/18/24 1505 Wound Approximate Age at First Assessment (Weeks): 4 weeks Location: Leg upper Wound Location Orientation: Left;Medial Wound Image Images linked Site Assessment Granulation;Sloughing Sara-Wound Assessment Scarred Wound Length (cm) 3.3 cm Wound Width (cm) 0.8 cm Wound Surface Area (cm^2) 2.07 cm^2 Wound Depth (cm) 1.5 cm Wound Volume (cm^3) 2.073 cm^3 Margins Well-defined edges Wound Healing % 93 Drainage Description Serosanguineous Drainage Amount Moderate Odor None Wound Bed Granulation (%) 70 % Wound Bed Slough (%) 30 % Non-staged Wound Description Full thickness documented in this encounter Plan of Treatment Upcoming Encounters Date Type Department Care Team (Late st Contact Info) Description 12/20/2024 3:30 PM EDT Clinical Support [facility] [place] 1 [place] [address] 12/23/2024 4:00 PM EDT [facility] [place] 1 [place] [address] 12/25/2024 3:00 PM EDT Office Visit [facility] [place] 1 [place] [address] Jerry Monroe Jr., MD [address] [place] [address] 12/27/2024 3:15 PM EDT Clinical Support [facility] [place] 1 [place] [address] 12/30/2024 3:30 PM EDT Clinical Support [facility] [place] 1 [place] [address] 01/01/2025 3:00 PM EDT Office Visit [facility] 1 [place] [address] Jerry Monroe Jr., MD [address] [place] [address] 01/03/2025 3:30 PM EDT Clinical Support [facility] [place] 1 [place] [address] documented as of this encounter Procedures Procedure Name Priority Date/Time Associated Diagnosis Comments WOUND TREATMENT Routine 12/13/2024 1:49 PM EDT Non-pressure chronic ulcer of skin [...]
--- OUTSIDE RECORDS SUMMARY | 2024-12-16 15:30 | XMS_ITS | Encounter Summary ---
Author Organization [employer] ([place], [place], [place], [place]) Address [address] [place] [address] Care Team Providers Care Staffing Manager Name Role Phone Unavailable Primary Care Provider Unavailabl e Reason for Visit * Reason Comments Wound Care Nurse visit for woun d care, wound vac and dressing change Encounter Details Date Type Department Care Team (Late st Contact Info) Description 12/16/2024 3:30 PM EDT Clinical Support [facility] 1 [place] [address] Jerry Monroe Jr., MD [address] [place] [address] Non-pressure chronic ulcer of skin of [...] Sign Reading Time Taken Comments Blood Pressure 173/78 12/16/2024 3:26 PM EDT Pulse 72 12/16/2024 3:26 PM EDT Temperature 36.5 C (97.7 F) 12/16/2024 3:26 PM EDT Respiratory Rate 18 12/16/2024 3:26 PM EDT Oxygen Saturation - - Inhaled Oxygen Concentration - - Weight - - Height - - Body Mass Index - - documented in this encounter Progress Notes * Roselia Peña - 12/16/2024 3:30 PM EDT Patient seen today for non provider visit. Dressing removed as follows: Wound vac and drape, black foam - 1 piece each wound, white foam - 1 piece each wound Dressing applied per order as indicated below: Clean wound with 0.9 % normal saline. [...] in this encounter. * Roselia Peña - 12/16/2024 3:30 PM EDT Images from the original note were not included. Attached media from the original note were not included. 12/16/24 1544 Wound 11/18/24 Groin Left Date First Assessed/Time First Assessed: 11/18/24 1508 Wound Approximate Age at First Assessment (Weeks): 4 weeks Location: Groin Wound Location Orientation: Left Wound Image Images linked Site Assessment Granulation;Sloughing Sara-Wound Assessment Scarred Wound Length (cm) 6.5 cm Wound Width (cm) 5.3 cm Wound Surface Area (cm^2) 27.06 cm^2 Wound Depth (cm) 4.8 cm Wound Volume (cm^3) 86.582 cm^3 Tunneling 1.7 cm Tunneling Clock Position of Wound 2 Margins Well-defined edges Wound Healing % 67 Drainage Description Red;Sanguineous Drainage Amount Moderate Odor None Wound Bed Granulation (%) 80 % Wound Bed Slough (%) 20 % Non-staged Wound Description Full thickness * Roselia Peña - 12/16/2024 3:30 PM EDT Images from the original note were not included. Attached media from the original note were not included. 12/16/24 1549 Wound 11/18/24 Leg upper Left;Medial Date First Assessed/Time First Assessed: 11/18/24 1505 Wound Approximate Age at First Assessment (Weeks): 4 weeks Location: Leg upper Wound Location Orientation: Left;Medial Wound Image Images linked Site Assessment Granulation;Sloughing Sara-Wound Assessment Scarred Wound Length (cm) 3.2 cm Wound Width (cm) 0.7 cm Wound Surface Area (cm^2) 1.76 cm^2 Wound Depth (cm) 1.5 cm Wound Volume (cm^3) 1.759 cm^3 Margins Well-defined edges Wound Healing % 94 Drainage Description Serosanguineous;Red Drainage Amount Moderate Odor None Wound Bed Granulation (%) 80 % Wound Bed Slough (%) 20 % Non-staged Wound Description Full thickness documented in this encounter Plan of Treatment Upcoming Encounters Date Type Department Care Team (Late st Contact Info) Description 12/20/2024 3:30 PM EDT Clinical Support [address] [address] 12/23/2024 4:00 PM EDT Clinical Support [address] [address] 12/25/2024 3:00 PM EDT Office Visit [address] [address] Jerry Monroe Jr., MD [address] [place] [address] 12/27/2024 3:15 PM EDT Clinical Support [address] [address] 12/30/2024 3:30 PM EDT Clinical Support [address] [address] 01/01/2025 3:00 PM EDT Office Visit [facility] 1 [place] [phone] Jerry Monroe Jr., MD [address] [place] [address] 01/03/2025 3:30 PM EDT Clinical Support [facility] [place] 1 [place] [address] documented as of this encounter Visit Diagnoses Diagnosis 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
--- OUTSIDE RECORDS SUMMARY | 2024-12-18 15:00 | XMS_ITS | Encounter Summary ---
Author Organization [employer] ([place], [place], [place], [place]) Address [address] [place] [address] Care Team Providers Care Pediatric Lpn Name Role Phone Unavailable Primary Care Provider Unavailabl e Reason for Visit * Reason Comments Wound Care Encounter Details Date Type Department Care Team (Late st Contact Info) Description 12/18/2024 3:00 PM EDT Office Visit 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) Social History Tobacco Use Types Packs/Day Years Used Date Smoking Tobacco: Former Cigarettes Q uit: 03/27/2016 Smokeless Tobacco: Never Sex and Gender Information Value Date Recorded Sex Assigned at Not on file Legal Sex Male 1:35 PM CDT Gender Identity Not on file Sexual Orientation Not on file documented as of this encounter Patient Instructions * Patient Instructions* Adriana Ricks RN - 12/18/2024 3:00 PM EDT Keep dressings clean and dry until next visit Signs and symptoms of infection may include: Increased redness around wound, increased drainage, and / or increased pain Drainage with odor or color changes such as green / bright yellow drainage Call wound center for any concerns documented in this encounter Progress Notes * Adriana Ricks RN - 12/18/2024 3:00 PM EDT Images from the original note were not included. Attached media from the original note were not included. 12/18/24 1547 Wound 11/18/24 Leg upper Left;Medial Date First Assessed/Time First Assessed: 11/18/24 1505 Wound Approximate Age at First Assessment (Weeks): 4 weeks Location: Leg upper Wound Location Orientation: Left;Medial Wound Image Images linked Site Assessment Granulation Sara-Wound Assessment Scarred Wound Length (cm) 2.4 cm Wound Width (cm) 0.5 cm Wound Surface Area (cm^2) 0.94 cm^2 Wound Depth (cm) 1 cm Wound Volume (cm^3) 0.628 cm^3 Margins Well-defined edges Wound Healing % 98 Drainage Description Serosanguineous Drainage Amount Moderate Odor None Wound Bed Granulation (%) 90 % Wound Bed Slough (%) 10 % Non-staged Wound Description Full thickness * Adriana Ricks RN - 12/18/2024 3:00 PM EDT Images from the original note were not included. Attached media from the original note were not included. 12/18/24 1550 Wound 11/18/24 Groin Left Date First Assessed/Time First Assessed: 11/18/24 1508 Wound Approximate Age at First Assessment (Weeks): 4 weeks Location: Groin Wound Location Orientation: Left Wound Image Images linked Site Assessment Granulation;Sloughing Sara-Wound Assessment Scarred Wound Length (cm) 6.1 cm Wound Width (cm) 5.3 cm Wound Surface Area (cm^2) 25.39 cm^2 Wound Depth (cm) 4.3 cm Wound Volume (cm^3) 72.79 cm^3 Tunneling 1.7 cm Tunneling Clock Position of Wound 2 Margins Well-defined edges Wound Healing % 72 Drainage Description Serosanguineous Drainage Amount Moderate Odor None Wound Bed Granulation (%) 60 % Wound Bed Slough (%) 40 % Non-staged Wound Description Full thickness * Adriana Ricks RN - 12/18/2024 3:00 PM EDT Pt here for a follow-up wound care provider visit. Removed pt's previously ordered dressings. Orders below followed for wound care today in clinic: Clean wounds with 0.9 % normal saline after removal of dressings May use Lidocaine 4 or 5% as needed for pain control during clinic appointments. Wound site- left groin Skin barrier to sara wound skin, vac drape to window-pane wounds, eakins as needed Primary dressings- Vidhya at wound base, white foam into base of tunnel, NPWT black foam Secondary dressings- NPWT drape, settings of 125 mmhg continous Change- 3x week in clinic Wound site- left upper medial leg Primary dressings- Vidhya moistened with saline Secondary dressings- Hydrofera blue ready, gauze, vac drape Change- 3x week in clinic Plan of Care: Non-provider visits 2 times a week for dressing changes. Return in 1 week for follow up appointment. Pt tolerated wound care well. Policy procedures followed for wound care performed in clinic. Instructed pt on wound care. All wound care instructions along with wrap-up education printed and handed to patient at end of visit. * Jerry Monroe Jr., MD - 12/18/2024 3:00 PM EDTAssociated Order(s): Debridement Subjective 12/18/24 - CJA -patient returns to the wound care center today for management of the 2 wounds of hisabdomen and his leg. Today both wounds are improved. They appear less necrotic. Thorough muscular debridement was still medically necessary the wound of the lower abdomen due to slough and other nonviable tissue present. Patient seems to be doing okay with this regimen. Will add some collagen to the base of the abdomen wound and continue with wound VAC at the site. In regards to the wound of the leg it is too small for VAC and we will just use some collagen and Hydrofera Blue on it. Overall patient is tremendously improved. 9/17/25 - CJA -patient returns to the wound [...] upper leg. Patient was admitted to the [facility] on November 05, 2024 and dischargedon [...] is getting daily infusions at [facility] through his PICC line for antibiotics. He is here today for wound VAC change and managementof the wound sites. Looks like he was placed on ertapenem and micafungin. It looks like patient is also an insulin-dependent diabetic. Hemoglobin A1c during hospitalization was 7.6. Patient's renal fu nction looks appropriate. He presents today with 2 fairly large heavily draining wounds of his groin and leg. There is muscular tissue at the [...] Last Recorded Vitals Blood pressure (!) (P) 167/83, pulse (P) 75, temperature (P) 97.5 ??F (36.4 ??C), resp. rate (P) 16. Physical Exam Constitutional: Appearance: Normal appearance. Musculoskeletal: [...] No results found for this visit on 12/18/24 (from the past 24 hours). No image results found. Mono was seen today for wound care. 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 male. Debridement Wound 11/18/24 Groin Left Performed by: Jerry Monroe Jr., MD Authorized by: Jerry Monroe Jr., MD Consent Consent obtained? written Consent given by: patient Risks discussed? procedural risks discussed Immediately prior to the procedure a time out was called and the performing provider verified the correct patient, procedure, equipment, life support technician, and site/side marked as required. Debridement Details Performed by: physician Debridement type: surgical Level of debridement: muscle Pain control: lidocaine 2% Pain control administration type: topical Pre-debridement measurements Length (cm): 6.1 Width (cm): 5.3 Depth (cm): 4.3 Surface Area (cm^2): 25.39 Post-debridement measurements Length (cm): 6.2 Width (cm): 5.4 Depth (cm): 4.4 Percent debrided: 100% Surface Area (cm^2): 26.3 Area Debrided (cm^2): 26.3 Volume (cm^3): 77.13 Tissue and other material debrided: adipose, dermis, epidermis, fascia, hypergranulation, muscle and subcutaneous tissue Devitalized tissue debrided: biofilm, fibrin and slough Instrument(s) utilized: curette Bleeding: small Hemostasis obtained with: pressure Procedural pain (0-10): 3 Post-procedural pain: 1 Response to treatment: procedure was tolerated well documented in this encounter Plan of Treatment Upcoming Encounters Date Type Department Care Team (Late st Contact Info) Description 12/20/2024 3:30 PM EDT Clinical Support [address] [address] 12/23/2024 4:00 PM EDT Clinical Support [address] [address] 12/25/2024 3:00 PM EDT Office Visit [address] [address] Jerry Monroe Jr., MD [address] [place] [address] 12/27/2024 3:15 PM EDT Clinical Support [address] [address] 12/30/2024 3:30 PM EDT Clinical Support [facility] 1 [place] [address] 01/01/2025 3:00 PM EDT Office Visit [facility] 1 [place] [address] Jerry Monroe Jr., MD [address] [place] [address] 01/03/2025 3:30 PM EDT Clinical Support 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 written Consent given by: patient Risks discussed? procedural risks discussed Immediately prior to the procedure a time out was called and the performing provider verified the correct patient, procedure, equipment, life support technician, and site/side marked as required. Debridement Details Performed by: physician Debridement type: surgical Level of debridement: muscle Pain control: lidocaine 2% Pain control administration type: topical Pre-debridement measurements Length (cm): 6.1 Width (cm): 5.3 Depth (cm): 4.3 Surface Area (cm^2): 25.39 Post-debridement measurements Length (cm): 6.2 Width (cm): 5.4 Depth (cm): 4.4 Percent debrided: 100% Surface Area (cm^2): 26.3 Area Debrided (cm^2): 26.3 Volume (cm^3): 77.13 Tissue and other material debrided: adipose, dermis, epidermis, fascia, hypergranulation, muscle and subcutaneous tissue Devitalized tissue debrided: biofilm, fibrin and slough Instrument(s) utilized: curette Bleeding: small Hemostasis obtained with: pressure Procedural pain (0-10): 3 Post-procedural pain: 1 Response to treatment: procedure [...] other specified manifestations, not stated as uncontrolled 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
--- OUTSIDE RECORDS SUMMARY | 2024-12-19 08:12 | XMS_ITS | Encounter Summary ---
Author Organization Healthcare Address [address] [place] [address] Care Team Providers Care Nitroglycerin Supervisor Name Role Phone Asad Victor MD Primary Care Provider + [phone] Encounter Details Date Type Department Care Team (Late st Contact Info) Description 12/04/2024 Telephone [facility] [address] [place] [address] Nathaly Nowak MD [address] [place] [address] Social History Tobacco Use Types [...] drink first t dino in the morning (EYE-PET STORE MERCHANDISER) to steady your nerves or to get rid of a hangover? 0 10/18/2021 CAGE Questionnaire Score 0 022 Utilities Answer Date Recorded In the past 12 months has th e [employer], gas, oil, or water company threatened to [...] EDT Returned phone call to Judy at [facility]. Patient previously stated that he is receiving wound care at [facility]. We unfortunately do not have these records at this time, we have sent two requests and are awaiting them at this time. Patient has not yet been seen in clinic for his post-operative appointment. * Telephone Encounter - Clare Fleming - 12/04/2024 11:35 AM EDT Clinical Concern/Question Reason for Call: judy at [facility] calling for wound measurements for wound vac. Please call Best contact number: Other: [phone] vext [phone] Optimal time of day to reach caller: [...] Description 12/19/2024 9:00 AM EDT Office Visit [facility] [address] [place] [address] Nathaly Nowak MD [address] [place] [address] documented as of this encounter [...] documented as of this encounter Care Teams Nitroglycerin Supervisor Relationship Specialty Start Date End Date Asad Victor MD [address] [place] [address] PCP - General 10/07/22 documented as of this encounter
--- OUTSIDE RECORDS SUMMARY | 2024-12-19 08:19 | XMS_ITS | Encounter Summary ---
Author Organization [employer] ([place], [place], [place], [place]) Address [address] [place] [address] Care Team Providers Care Dietary Tech Name Role Phone Unavailable Primary Care [...] Description 12/20/2024 3:30 PM EDT Clinical Support [facility] [address] [address] 12/23/2024 4:00 PM EDT Clinical Support [facility] [address] [address] 12/25/2024 3:00 PM EDT Office Visit [address] [address] Jerry Monroe Jr., MD [address] [place] [address] 12/27/2024 3:15 PM EDT Clinical Support [address] [address] 12/30/2024 3:30 PM EDT Clinical Support [address] [address] 01/01/2025 3:00 PM EDT Office Visit [facility] 1 [place] [address] Jerry Monroe Jr., MD [address] [place] [address] 01/03/2025 3:30 PM EDT Clinical Support [facility] [place] [address] [place] [address] documented as of this encounter Visit Diagnoses Not on filedocumented in this encounter
[2024-12-19 08:20] VITALS: BP 145/58; PULSE 74; RESP 20; TEMP 36.6; O2SAT 96
[2024-12-19] MEDS: SODIUM CHLORIDE 0.9% IV (08:20)
[2024-12-19] MEDS: MICAFUNGIN SODIUM IV (08:20)
[2024-12-19] MEDS: SODIUM CHLORIDE 0.9% 10ML FLUSH SYRINGE 10 ML IV (08:21)
--- OUTSIDE RECORDS SUMMARY | 2024-12-19 08:21 | XMS_ITS | Encounter Summary ---
Author Organization [employer] ([place], [place], [place], [place]) Address [address] [place] [address] Care Team Providers Care Wall Covering Contractor Name Role Phone Unavailable Primary Care Provider [...] Description 12/20/2024 3:30 PM EDT Clinical Support [facility] Wound Care [address] [address] 12/23/2024 4:00 PM EDT Clinical Support [facility] Care [address] [address] 12/25/2024 3:00 PM EDT Office Visit [address] [address] Jerry Monroe Jr., MD [address] [place] [address] 12/27/2024 3:15 PM EDT Clinical Support [address] [address] 12/30/2024 3:30 PM EDT Clinical Support [address] [address] 01/01/2025 3:00 PM EDT Office Visit [facility] Center [address] [place] [address] Jerry Monroe Jr., MD [address] [place] [address] 01/03/2025 3:30 PM EDT Clinical Support [facility] Wound Care [place] [address] [place] [address] documented as of this encounter Visit Diagnoses Not on filedocumented in this encounter
--- OUTSIDE RECORDS SUMMARY | 2024-12-19 08:23 | XMS_ITS | Encounter Summary ---
Author Organization [employer] ([place], [place], [place], [place]) Address [address] [place] [address] Care Team Providers Care Alternative Energy Technician Name Role Phone Unavailable Primary Care [...] Description 12/20/2024 3:30 PM EDT Clinical Support [facility] Wound Care [address] [address] 12/23/2024 4:00 PM EDT Clinical Support [facility] Care [address] [address] 12/25/2024 3:00 PM EDT Office Visit [address] [address] Jerry Monroe Jr., MD [address] [place] [address] 12/27/2024 3:15 PM EDT Clinical Support [address] [address] 12/30/2024 3:30 PM EDT Clinical Support [address] [address] 01/01/2025 3:00 PM EDT Office Visit [facility] [address] [place] [address] Jerry Monroe Jr., MD [address] [place] [address] 01/03/2025 3:30 PM EDT Clinical Support [facility] [place] [address] [place] [address] documented as of this encounter Visit Diagnoses Not on filedocumented in this encounter
--- OUTSIDE RECORDS SUMMARY | 2024-12-19 08:26 | XMS_ITS | Encounter Summary ---
Author Organization [employer] ([place], [place]) Address [address] [place] [address] Care Team Providers Care Prepress Stripper Name Role Phone Unavailable Primary Care [...] PM EDT Clinical Support [facility] W[facility] Care [address] [address] 12/23/2024 4:00 PM EDT Clinical Support [facility] Care [address] [address] 12/25/2024 3:00 PM EDT Office Visit [address] [address] Jerry Monroe Jr., MD [address] [place] [address] 12/27/2024 3:15 PM EDT Clinical Support [address] [address] 12/30/2024 3:30 PM EDT Clinical Support [address] [address] 01/01/2025 3:00 PM EDT Office Visit [facility] [address] [place] [address] Jerry Monroe Jr., MD [address] [place] [address] 01/03/2025 3:30 PM EDT Clinical Support [facility] [place] [address] [place] [address] documented as of this encounter Visit Diagnoses Not on filedocumented in this encounter
--- OUTSIDE RECORDS SUMMARY | 2024-12-19 08:26 | XMS_ITS | Encounter Summary ---
Author Organization Healthcare Address [address] [id number] Care Team Providers Care Engineering Supervisor Name Role Phone Asad Victor MD Primary Care Provider + [phone] Reason for Visit * Reason Onset Date Comments [facility]CN Clinical Concern/Question 11/15/2024 Encounter Details Date Type Department Care Team (Late st Contact Info) Description 11/15/2024 Telephone [facility] [address] [facility] 5th Floor [address] [place] [address] Nathaly Nowak MD [address] [facility] [address] [place] [address] [facility] Clinical Concern/Question Social History [...] drink first t dino in the morning (EYE-HOSPICE CLINICAL MARKETER) to steady your nerves or to get [...] has been receiving his wound care through [facility] in [place]. Records requested from there. Post-op appointment request [...] with info. Thank you Best contact number: [phone] (mobile) Optimal time of day to reach [...] Description 12/19/2024 9:00 AM EDT Office Visit [place] [facility] [address] [facility] 5[address] Floor [address] [place] [address] Nathaly Nowak MD [address] [facility] [address] [place] [address] documented as of this encounter Goals Goal Patient Goal Type Associated Problems Recent Progress Patient-Stated? Author Autosridhar louise Goal Care Plan Autogenerated Problem No Ekta Arnett documented as of this encounter Visit Diagnoses Not on filedocumented in this encounter Additional Health Concerns Active Problems Noted Date Diagnosed Date Autogenerated Problem 09/23/2024 Assessment Noted Time A Body Mass Index follow-up plan has been documented for the patient 11/15/2024 8:19 AM EDT documented as of this encounter Care Teams Engineering Supervisor Relationship Specialty Start Date End Date Asad Victor MD [address] [place] [address] PCP - General 10/07/22 documented as of this encounter
--- OUTSIDE RECORDS SUMMARY | 2024-12-19 08:27 | XMS_ITS | Encounter Summary ---
Author Organization [employer] ([place], [place], [place], [place]) Address [address] [place] [address] Care Team Providers Care Scrap Metal Collector Name Role Phone Unavailable Primary Care Provider [...] Description 12/20/2024 3:30 PM EDT Clinical Support [facility] Wound Care [address] [address] 12/23/2024 4:00 PM EDT Clinical Support [facility] Care [address] [address] 12/25/2024 3:00 PM EDT Office Visit [address] [address] Jerry Monroe Jr., MD [address] [place] [address] 12/27/2024 3:15 PM EDT Clinical Support [address] [address] 12/30/2024 3:30 PM EDT Clinical Support [address] [address] 01/01/2025 3:00 PM EDT Office Visit [facility] [address] [place] [address] Jerry Monroe Jr., MD [address] [place] [address] 01/03/2025 3:30 PM EDT Clinical Support [facility] [place] [address] [place] [address] documented as of this encounter Visit Diagnoses Not on filedocumented in this encounter
--- OUTSIDE RECORDS SUMMARY | 2024-12-19 08:27 | XMS_ITS | Clinical Summary ---
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 EDT [facility] Comment:Screening for HIV 1 & 2 antibodies, and P24 antigen is NONREACTIVE. No confirmatory testing is required. Blood Venous blood specimen / Unknown Venipuncture / Unknown 09/20/2024 10:33 PM EDT 09/20/2024 10:54 PM EDT us Giorgi Perkins MD LAB BLOOD ORDERABLES Final Result [facility] [address] [place] [address] * Hepatitis C Antibody - ED (09/20/2024 10:33 PM EDT) Hepatitis C Antibody Negative Negative 09/20/2024 11:39 PM EDT [facility] Blood Venous blood specimen / Unknown Venipuncture / Unknown 09/20/2024 10:33 PM EDT 09/20/2024 10:53 PM EDT Giorgi Perkins MD LAB BLOOD ORDERABLES Final Result [facility] [address] [place] [address] * APTT (09/20/2024 10:33 PM EDT) aPTT 28 25 - 35 sec LAB COAGULATION METHOD 09/21/2024 12:19 AM EDT [facility] Blood Venous blood specimen / Unknown Venipuncture / Unknown 09/20/2024 10:33 PM EDT 09/20/2024 10:42 PM EDT us Giorgi Perkins MD LAB BLOOD ORDERABLES Final Result [facility] [address] [place] [address] from Last 3 Months Additional Health Concerns Active Problems Noted Date Diagnosed Date Autogenerated Problem 09/23/2024 Insurance [facility] MEDICAID [facility] MEDICARE Advance Directives * Full Code [...] Patient has decision-making capacity? Yes Care Teams Crime Laboratory Analyst Relationship Specialty Start Date End Date Asad Victor MD [address] [place] [id number] PCP - General 10/07/22
--- OUTSIDE RECORDS SUMMARY | 2024-12-19 08:29 | XMS_ITS | Encounter Summary ---
Author Organization Healthcare Address [address] [place] [address] Care Team Providers Care Oncology Coordinator Name Role Phone Asad Victor MD Primary Care Provider + [phone] Encounter Details Date Type Department Care Team (Late st Contact Info) Description 12/17/2024 Telephone [id number] [place] [address] Oscar Appiah MD [address] [place] [address] [address] [place] [address] Social History Tobacco Use Types [...] drink first t dino in the morning (EYE-WRAPPING CLERK) to steady your nerves or to get rid of a hangover? 0 10/18/2021 CAGE Questionnaire Score 0 022 Utilities Answer Date Recorded In the past 12 months has th e [employer], gas, oil, or water company threatened to shut off services in your home? No 11/07/2024 Sex and Gender Information Value Date Recorded Sex Assigned at Not on file Legal Sex Male 8:57 PM EDT Gender Identity Not on file Sexual Orientation Not on file documented as of this encounter Miscellaneous Notes * Telephone Encounter - Oscar Appiah MD - 12/17/2024 3:49 PM EDT He has been getting OPAT abx as outpatient but missed ID clinic apps twice in a row. He received > 6 weeks of IV abx and would like to switch to oral levofloxacin and fluconazole but need to check Qtc. Will get EKG done at local infusion center. Plan: - get EKG at local infusion center that he visits daily Oscar Appiah Infectious Diseases documented in this encounter Plan of Treatment Upcoming Encounters Date Type Department Care Team (Late st Contact Info) Description 12/19/2024 9:00 AM EDT Office Visit [facility] [address] [facility] 5th Floor [address] [place] [address] Nathaly Nowak MD [address] [facility] [address] [place] [address] Scheduled Orders Name Type Priority Associated Diagnoses Orde r Schedule ECG Adult (Future Visit - Performed in your clinic) ECG Routine Arteriovenous graft infection, 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
--- OUTSIDE RECORDS SUMMARY | 2024-12-19 08:29 | XMS_ITS | Encounter Summary ---
Author Organization [employer] ([place], [place], [place], [place]) Address [address] [place] [address] Care Team Providers Care Fighter Pilot Name Role Phone Unavailable Primary Care Provider Unavailabl e Encounter Details Date Type Department Care Team (Latest Contact Info) Description 12/16/2024 Travel Social History Tobacco Use Types Packs/Day [...] Clinical Support [facility] [address] [address] 12/23/2024 4:00 PM EDT Clinical Support [facility] [address] [address] 12/25/2024 3:00 PM EDT Office Visit [address] [address] Jerry Monroe Jr., MD [address] [place] [address] 12/27/2024 3:15 PM EDT Clinical Support [address] [address] 12/30/2024 3:30 PM EDT Clinical Support [address] [address] 01/01/2025 3:00 PM EDT Office Visit [facility] [address] [place] [address] Jerry Monroe Jr., MD [address] [place] [address] 01/03/2025 3:30 PM EDT Clinical Support [facility] [place] [address] [place] [address] documented as of this encounter Visit Diagnoses Not on filedocumented in this encounter
--- OUTSIDE RECORDS SUMMARY | 2024-12-19 08:29 | XMS_ITS | Encounter Summary ---
Author Organization Healthcare Address [id number] Care Team Providers Care Chair Finisher Name Role Phone Asad Victor MD Primary Care Provider + [phone] Encounter Details Date Type Department Care Team (Late st Contact Info) Description 10/22/2024 Telephone Vascular Surgery [address] [place] [address] Alison Beltrán, CLAIMS TECHNICIAN, DNP [address] [facility] [address] [place] [address] Social History Tobacco Use Types Packs/Day Years [...] drink first t dino in the morning (EYE-LOGISTICS ENGINEERING MANAGER) to steady your nerves or to [...] Notes * Telephone Encounter - Alison Beltrán, CLAIMS TECHNICIAN, DNP - 10/22/2024 11:39 AM EDT Returned patient call. Patient s/p left common/superficial/profunda femoral thromboendarterectomy with bovine patch repair and left external iliac artery/WATER QUALITY SPECIALIST stent with Dr Gautam on 10/17/24. Patient [...] Description 12/19/2024 9:00 AM EDT Office Visit [facility] [address] [facility] 5th Floor [address] [place] [address] Nathaly Nowak MD [address] [facility] [address] [place] [address] documented as of this encounter Goals Goal [...] as of this encounter Care Teams Chair Finisher Relationship Specialty Start Date End Date sAad Victor MD [address] [place] [address] PCP - General 10/07/22 documented as of this encounter
--- OUTSIDE RECORDS SUMMARY | 2024-12-19 08:29 | XMS_ITS | Encounter Summary ---
Author Organization Healthcare Address [address] [place] [address] Care Team Providers Care Cage/Vault Supervisor Name Role Phone Asad Victor MD Primary Care Provider + [phone] Encounter Details Date Type Department Care Team (Late st Contact Info) Description 10/17/2024 Orders Only External Location [address] [place] [address] Provider, External Social History Tobacco Use Types [...] drink first t dino in the morning (EYE-GAS TURBINE ASSEMBLER) to steady your nerves or to get rid of a hangover? 0 10/18/2021 CAGE Questionnaire Score 0 022 Utilities Answer Date Recorded In the past 12 months has th e [employer], gas, oil, or water [employer] threatened to shut off services in [...] Description 12/19/2024 9:00 AM EDT Office Visit [facility] [address] 5th Floor [address] [place] [address] Nathaly Nowak MD [address] [facility] [address] [place] [address] documented as of this encounter [...] documented as of this encounter Care Teams Cage/Vault Supervisor Relationship Specialty Start Date End Date Asad Victor MD [address] [place] [address] PCP - General 10/07/22 documented as of this encounter
--- OUTSIDE RECORDS SUMMARY | 2024-12-19 08:29 | XMS_ITS | Encounter Summary ---
Author Organization Healthcare Address [address] [place] [address] Care Team Providers Care Elect Equip Maint Eng Name Role Phone Asad Victor MD Primary Care Provider + [phone] Encounter Details Date Type Department Care Team (Late st Contact Info) Description 11/27/2024 Orders Only [address] [address] Vaishali Kraus MD [address] [place] [address] [address] [place] [address] Therapeutic drug monitoring (Primary Dx) [...] drink first t dino in the morning (EYE-SAMPLE GRADER) to steady your nerves or to [...] [place] [facility] [address] [place] [address] Nathaly Nowak MD [address] [facility] [address] [place] [address] Scheduled Orders Name Type Priority [...] documented as of this encounter Care Teams Elect Equip Maint Eng Relationship Specialty Start Date End Date Asad Victor MD [address] [place] [address] PCP - General 10/07/22 documented as of this encounter
--- OUTSIDE RECORDS SUMMARY | 2024-12-19 08:31 | XMS_ITS | Encounter Summary ---
Author Organization Healthcare Address [address] [place] [address] Care Team Providers Care Hair Dryer Name Role Phone Asad Victor MD Primary Care Provider + [phone] Encounter Details Date Type Department Care Team (Late st Contact Info) Description 12/07/2024 Results Follow-Up [id number] [place] [address] Vaishali Kraus MD [address] [facility] [address] [place] [address] Social History Tobacco Use Types [...] first t dino in the morning (EYE-GUIDE TRAVEL) to steady your nerves or to get [...] Description 12/19/2024 9:00 AM EDT Office Visit [facility] [address] [facility] 5th Floor [address] [place] [address] Nathaly Nowak MD [address] [facility] [address] [place] [address] documented as of this encounter [...] documented as of this encounter Care Teams Hair Dryer Relationship Specialty Start Date End Date Asad Victor MD [address] [id number] PCP - General 10/07/22 documented as of this encounter
--- OUTSIDE RECORDS SUMMARY | 2024-12-19 08:31 | XMS_ITS | Clinical Summary ---
Author Organization [employer] ([place], [place], [place], [place]) Address [address] [place] [address] Care Team Providers Care Fire Assistant Name Role Phone Unavailable Primary Care [...] mg into a venous catheter daily. Active rivaroxaban (XARELTO) 10 mg tablet Take 0.25 tablets (2.5 mg total) by mouth 2 (two) times daily. 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) 12/16/2024 3:30 PM EDT Clinical Support [facility] [place] [address] [place] [address] Jerry Monroe Jr., MD 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) 12/16/2024 Travel 12/13/2024 12:00 PM EDT Clinical Support [facility] [address] [place] [address] Jerry Monroe Jr., MD 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) 12/13/2024 Travel 12/11/2024 2:40 PM EDT Office Visit [facility] [address] [place] [address] Jerry Monroe Jr., MD 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); Localized tissue (HCC); Other specified local infections of the skin and subcutaneous tissue; Diabetes mellitus with skin ulcer (HCC) 12/09/2024 3:30 PM EDT Clinical Support [facility] [address] [place] [address] Jerry Monroe Jr., MD 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) 12/09/2024 Travel 12/04/2024 1:40 PM EDT Office Visit [facility] [address] [place] [phone] Jerry Monroe Jr., MD 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); Localized tissue (HCC); Other specified local infections of the skin and subcutaneous tissue; Diabetes mellitus with skin ulcer (HCC) 12/04/2024 Travel 12/02/2024 2:15 PM EDT Clinical Support [facility] [place] [address] [place] [phone] Jerry Monroe Jr., MD 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) 12/02/2024 Travel 11/29/2024 4:00 PM EDT Clinical Support [facility] [place] [address] [place] [phone] Jerry Monroe Jr., MD 11/27/2024 2:20 PM EDT Office Visit [facility] [place] [address] [place] [phone] Jerry Monroe Jr., MD 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); Localized tissue (HCC); Other specified local infections of the skin and subcutaneous tissue; Diabetes mellitus with skin ulcer (HCC) 11/27/2024 Travel 11/22/2024 4:15 PM EDT Clinical Support [facility] [place] [address] [place] [address] Jerry Monroe Jr., MD 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) 11/20/2024 2:15 PM EDT Clinical Support [facility] [place] [address] [place] [address] Jerry Monroe Jr., MD 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) 11/20/2024 Travel 11/18/2024 1:10 PM EDT Office Visit [facility] [address] [place] [address] Jerry Monroe Jr., MD Non-pressure chronic ulcer [...] Description 12/20/2024 3:30 PM EDT Clinical Support [facility] [address] [place] [address] 12/23/2024 4:00 PM EDT Clinical Support [facility] [place] [address] [place] [address] 12/25/2024 3:00 PM EDT Office Visit [facility] [address] [place] [address] Jerry Monroe Jr., MD [address] [place] [address] 12/27/2024 3:15 PM EDT Clinical Support [facility] [place] [address] [place] [address] 12/30/2024 3:30 PM EDT Clinical Support [facility] [address] [place] [address] 01/01/2025 3:00 PM EDT Office Visit [facility] [address] [place] [address] Jerry Monroe Jr., MD [address] [place] [address] 01/03/2025 3:30 PM EDT Clinical Support [facility] [address] [place] [phone] Health Maintenance Due Date Last Done Comments [...] 02/06/2021 Tobacco Cessation Counseling and Screening (12+) 12/16/2025 12/18/2024 Procedures Procedure Name Priority Date/Time Associated Diagnosis Comments WI DEBRIDEMENT MUSCLE &/FASCIA EA ADDL 20 [...] skin and subcutaneous tissue WOUND TREATMENT Routine 12/13/2024 1:49 PM EDT [...] tissue from Last 3 Months Results * WI DEBRIDEMENT MUSCLE &/FASCIA 1ST 20 SQ CM/<, WI DEBRIDEMENT MUSCLE &/FASCIA EA ADDL 20SQ CM [...] provider verified the correct patient, procedure, equipment, patient support tech, and site/side marked as required. Debridement [...] SURGICAL ORDERABLES Final Result * Wound Treatment (12/13/2024 1:49 PM EDT) Only the most recent of4 resultswithin the time period is included. us Jerry Monroe Jr., MD NURSING PATHWAYS ORDERABL ES Final Result * WI DEBRIDEMENT MUSCLE &/FASCIA 1ST 20 SQ CM/<, WI DEBRIDEMENT MUSCLE &/FASCIA EA ADDL 20SQ CM [...] provider verified the correct patient, procedure, equipment, patient support tech, and site/side marked as required. Debridement [...] WI DEBRIDEMENT MUSCLE &/FASCIA EA ADDL 20SQ CM [...] provider verified the correct patient, procedure, equipment, patient support tech, and site/side marked as required. Debridement [...] WI DEBRIDEMENT MUSCLE &/FASCIA EA ADDL 20SQ CM [...] provider verified the correct patient, procedure, equipment, patient support tech, and site/side marked as required. Debridement [...] WI DEBRIDEMENT MUSCLE &/FASCIA EA ADDL 20SQ CM [...] provider verified the correct patient, procedure, equipment, patient support tech, and site/side marked as required. Debridement [...] provider verified the correct patient, procedure, equipment, patient support tech, and site/side marked as required. Debridement [...] provider verified the correct patient, procedure, equipment, patient support tech, and site/side marked as required. Debridement [...] provider verified the correct patient, procedure, equipment, patient support tech, and site/side marked as required. Debridement [...] provider verified the correct patient, procedure, equipment, patient support tech, and site/side marked as required. Debridement [...] Final Result from Last 3 Months Insurance [facility] [place]ID [place]
--- OUTSIDE RECORDS SUMMARY | 2024-12-19 08:31 | XMS_ITS | Referral Summary ---
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); Localized tissue (HCC); Other specified local infections of the skin and subcutaneous tissue; Diabetes mellitus with skin ulcer (HCC); 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) 12/16/2024 Travel 12/16/2024 3:30 PM EDT Clinical Support [facility] [place] [address] [place] [phone] Jerry Monroe Jr., MD 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) 12/13/2024 Travel 12/13/2024 12:00 PM EDT Clinical Support [facility] [place] [address] [place] [address] Jerry Monroe Jr., MD 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) 12/11/2024 2:40 PM EDT Office Visit [facility] [place] [address] [place] [address] Jerry Monroe Jr., MD 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); Localized tissue (HCC); Other specified local infections of the skin and subcutaneous tissue; Diabetes mellitus with skin ulcer (HCC) 12/09/2024 Travel 12/09/2024 3:30 PM EDT Clinical Support [facility] [place] [address] [place] [address] Jerry Monroe Jr., MD 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) 12/04/2024 Travel 12/04/2024 1:40 PM EDT Office Visit [facility] [place] [address] [place] [address] Jerry Monroe Jr., MD 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) 11/20/2024 Travel 11/20/2024 2:15 PM EDT Clinical Support [facility] [place] [address] [place] [address] Jerry Monroe Jr., MD 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) 11/18/2024 Travel 11/18/2024 1:10 PM EDT Office Visit [facility] [address] [place] [phone] Jerry Monroe Jr., MD Non-pressure chronic ulcer [...] Description 12/20/2024 3:30 PM EDT Clinical Support [facility] [place] [address] [place] [address] 12/23/2024 4:00 PM EDT Clinical Support [facility] 1 [place] [address] 12/25/2024 3:00 PM EDT Office Visit [address] [address] Jerry Monroe Jr., MD [address] [place] [address] 12/27/2024 3:15 PM EDT Clinical Support [facility] [address] [place] [address] 12/30/2024 3:30 PM EDT Clinical Support [facility] [address] [place] [address] 01/01/2025 3:00 PM EDT Office Visit [facility] [place] [address] [place] [address] Jerry Monroe Jr., MD [address] [place] [address] 01/03/2025 3:30 PM EDT Clinical Support [facility] [place] [address] [place] [address] Procedures Procedure Name Priority Date/Time Associated Diagnosis [...] the correct patient, procedure, equipment, product support technician, and site/side marked as required. [...] the correct patient, procedure, equipment, product support technician, and site/side marked as required. [...] the correct patient, procedure, equipment, product support technician, and site/side marked as required. [...] ADDL 20SQ CM (12/04/2024 1:40 PM EDT) eJrry Littlejohn Jr., MD - 12/04/2024 1:40 PM [...] the correct patient, procedure, equipment, product support technician, and site/side marked as required. [...] the correct patient, procedure, equipment, product support technician, and site/side marked as required. [...] the correct patient, procedure, equipment, product support technician, and site/side marked as required. [...] the correct patient, procedure, equipment, product support technician, and site/side marked as required. [...] the correct patient, procedure, equipment, product support technician, and site/side marked as required. [...] the correct patient, procedure, equipment, product support technician, and site/side marked as required. [...] Insurance [facility] MCR ADV DUAL COMPLETE MEDICAID OF [place]
--- OUTSIDE RECORDS SUMMARY | 2024-12-19 08:31 | XMS_ITS | Encounter Summary ---
Author Organization [employer] ([place], [place], [place], [place]) Address [address] [place] [address] Care Team Providers Care Chrome Plater Helper Name Role Phone Unavailable Primary Care [...] [facility] [address] [address] 12/23/2024 4:00 PM EDT Clinical Support [facility] [address] [address] 12/25/2024 3:00 PM EDT Office Visit [address] [address] Jerry Monroe Jr., MD [address] [place] [address] 12/27/2024 3:15 PM EDT Clinical Support [address] [address] 12/30/2024 3:30 PM EDT Clinical Support [address] [address] 01/01/2025 3:00 PM EDT Office Visit [facility] [address] [place] [address] Jerry Monroe Jr., MD [address] [place] [address] 01/03/2025 3:30 PM EDT Clinical Support [facility] [place] [address] [place] [address] documented as of this encounter Visit Diagnoses Not on filedocumented in this encounter
--- OUTSIDE RECORDS SUMMARY | 2024-12-19 08:32 | XMS_ITS | Encounter Summary ---
Author Organization Healthcare Address [address] [place] [address] Care Team Providers Care Geospatial Technologist Name Role Phone Asad Victor MD Primary Care Provider + [phone] Encounter Details Date Type Department Care Team (Late st Contact Info) Description 11/05/2024 Orders Only External Location [address] [place] [address] Provider, External Social History Tobacco Use Types [...] first t dino in the morning (EYE-SEARCH MANAGER) to steady your nerves or to get rid of a hangover? 0 10/18/2021 CAGE Questionnaire Score 0 022 Utilities Answer Date Recorded In the past 12 months has th e [employer], gas, oil, or water company threatened to [...] Description 12/19/2024 9:00 AM EDT Office Visit [facility] [address] Floor [address], [address] [place] [address] Nathaly Nowak MD [address] [place] [address] documented as of this encounter [...] documented as of this encounter Care Teams Geospatial Technologist Relationship Specialty Start Date End Date Asad Victor MD [address] [place] [address] PCP - General 10/07/22 documented as of this encounter
--- OUTSIDE RECORDS SUMMARY | 2024-12-19 08:32 | XMS_ITS | Encounter Summary ---
Author Organization [facility] Address [address] [place] [address] Care Team Providers Care Face Hardener Name Role Phone Asad Victor MD Primary Care Provider + [phone] Encounter Details Date Type Department Care Team [...] any time in the past 12 m [facility], were you homeless or living in [...] drink first t dino in the morning (EYE-WELT TREATER) to steady your nerves or to get [...] Description 12/19/2024 9:00 AM EDT Office Visit [facility] [address] 5[address] Floor Wing [address], [address] [place] [address] Nathaly Nowak MD [address] [facility] [address] [place] [address] documented as of this encounter [...] documented as of this encounter Care Teams Face Hardener Relationship Specialty Start Date End Date Asad Victor MD [address] [place] [address] PCP - General 10/07/22 documented as of this encounter
--- OUTSIDE RECORDS SUMMARY | 2024-12-19 08:33 | XMS_ITS | Encounter Summary ---
Author Organization [employer] ([place], [place], [place], [place]) Address [address] [place] [address] Care Team Providers Care Block Mechanic Name Role Phone Unavailable Primary Care [...] Description 12/20/2024 3:30 PM EDT Clinical Support [facility] [address] [address] 12/23/2024 4:00 PM EDT Clinical Support [facility] [address] [address] 12/25/2024 3:00 PM EDT Office Visit [address] [address] Jerry Monroe Jr., MD [address] [place] [address] 12/27/2024 3:15 PM EDT Clinical Support [address] [address] 12/30/2024 3:30 PM EDT Clinical Support [address] [address] 01/01/2025 3:00 PM EDT Office Visit [facility] 1 [place] [address] Jerry Monroe Jr., MD [address] [place] [address] 01/03/2025 3:30 PM EDT Clinical Support [facility] [place] [address] [place] [address] documented as of this encounter Visit Diagnoses Not on filedocumented in this encounter
--- OUTSIDE RECORDS SUMMARY | 2024-12-19 08:33 | XMS_ITS | Encounter Summary ---
Author Organization Healthcare Address [address] [place] [address] Care Team Providers Care Meat Blender Name Role Phone Asad Victor MD Primary Care Provider + [phone] Encounter Details Date Type Department Care Team (Late st Contact Info) Description 11/15/2024 Clinical Support [place] [id number] [place] [address] Charly Orlando, PharmD [address] [place] [address] [address] [place] [address] Social History Tobacco Use Types [...] first t dino in the morning (EYE-BUSINESS BANKER) to steady your nerves or to get rid of a hangover? 0 10/18/2021 CAGE Questionnaire Score 0 022 Utilities Answer Date Recorded In the past 12 months has th e [employer], gas, oil, or water company threatened to [...] [facility] [address] 5th Floor Wing [address], [address] [place] [address] Nathaly Nowak MD [address] [facility] [address] [place] [address] documented as of this encounter [...] documented as of this encounter Care Teams Meat Blender Relationship Specialty Start Date End Date Asad Victor MD [address] [place] [address] PCP - General 10/07/22 documented as of this encounter
[2024-12-19 08:50] VITALS: BP 122/69; PULSE 78; RESP 20; O2SAT 97
[2024-12-19 09:25] VITALS: BP 117/51; PULSE 78; RESP 20; O2SAT 97
== END 2024-12-19 23:59 | disposition home or self-care (01) ==
LOC: INF 08:09
PROVIDERS: PCP Family Medicine
DX: T81.49XA Infection following a procedure, other surgical site, initial encounter (principal); L08.9 Local infection of the skin and subcutaneous tissue, unspecified
CPT/HCPCS: 96365; J2248

== ENCOUNTER 2024-12-20 07:59 | Outpatient (CLI) | payer MEDICARE, OTHER, SELFPAY ==
--- OUTSIDE RECORDS SUMMARY | 2024-11-18 13:10 | XMS_ITS | Encounter Summary ---
Author Organization [employer] ([place], [place], [place], [place]) Address [address] [place] [address] Care Team Providers Care Mat Gauger Name Role Phone Unavailable Primary Care Provider Unavailabl e Reason for Visit * Reason Comments Wound Care Encounter Details Date Type Department Care Team (Late st Contact Info) Description 11/18/2024 1:10 PM EDT Office Visit [facility] 1 [place] [address] Jerry Monroe Jr., MD [address] [place] [address] Non-pressure chronic ulcer of skin of [...] health nurse( if you have home health) [facility] for an appointment. documented in this [...] upper leg. Patient was admitted to the [facility] on November 05, 2024 and dischargedon November [...] line. Patient is getting daily infusions at [facility] through his PICC line for antibiotics. He [...] provider verified the correct patient, procedure, equipment, legal support assistant, and site/side marked as required. Debridement Details [...] provider verified the correct patient, procedure, equipment, legal support assistant, and site/side marked as required. Debridement Details [...] Care Team (Late st Contact Info) Description 12/20/2024 3:30 PM EDT Clinical Support [address] [address] 12/23/2024 4:00 PM EDT Clinical Support [address] [address] 12/25/2024 3:00 PM EDT Office Visit [address] [address] Jerry Monroe Jr., MD [address] [place] [address] 12/27/2024 3:15 PM EDT Clinical Support [address] [address] 12/30/2024 3:30 PM EDT Clinical Support [address] [address] 01/01/2025 3:00 PM EDT Office Visit [address] [address] Jerry Monroe Jr., MD [address] [place] [address] 01/03/2025 3:30 PM EDT Clinical Support [facility] [address] [place] [phone] documented as of this encounter Procedures Procedure Name Priority Date/Time Associated Diagnosis Comments [place] DEBRIDEMENT MUSCLE &/FASCIA EA ADDL 20 SQ CM Routine 11/18/2024 1:10 PM EDT 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) Localized tissue (HCC) Other specified local infections of the skin and subcutaneous tissue AL DEBRIDEMENT MUSCLE &/FASCIA EA ADDL 20 SQ CM Routine 11/18/2024 1:10 PM EDT 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) Localized tissue (HCC) Other specified local infections of the skin and subcutaneous tissue AL DEBRIDEMENT MUSCLE &/FASCIA 1ST 20 SQ CM/< Routine 11/18/2024 1:10 PM EDT 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) Localized tissue (HCC) Other specified local infections of the skin and subcutaneous tissue AL DEBRIDEMENT MUSCLE &/FASCIA EA ADDL 20 SQ CM Routine 11/18/2024 1:10 PM EDT 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) Localized tissue (HCC) Other specified local infections of the skin and subcutaneous tissue AL DEBRIDEMENT MUSCLE &/FASCIA EA ADDL 20 SQ CM Routine 11/18/2024 1:10 PM EDT 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) Localized tissue (HCC) Other specified local infections of the skin and subcutaneous tissue AL DEBRIDEMENT MUSCLE &/FASCIA 1ST 20 SQ CM/< Routine 11/18/2024 1:10 PM EDT 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 Debridement Details [...] MD PROCEDURE/MINOR SURGICAL ORDERABLES Final Result * AL DEBRIDEMENT MUSCLE &/FASCIA 1ST 20 SQ CM/<, AL DEBRIDEMENT MUSCLE &/FASCIA EA ADDL 20SQ CM, [place] DEBRIDEMENT MUSCLE &/FASCIA EA ADDL 20 SQ [...] provider verified the correct patient, procedure, equipment, legal support assistant, and site/side marked as required. Debridement Details [...]
--- OUTSIDE RECORDS SUMMARY | 2024-11-20 14:15 | XMS_ITS | Encounter Summary ---
Author Organization [employer] ([place], [place], [place], [place]) Address [address] [place] [address] Care Team Providers Care Corrections Counselor Name Role Phone Unavailable Primary Care Provider Unavailabl e Reason for Visit * Reason Comments Wound Care Nurse visit for woun d vac change, wound care and dressing change Encounter Details Date Type Department Care Team (Late st Contact Info) Description 11/20/2024 2:15 PM EDT Clinical Support [facility] 1 [place] [address] Jerry Monroe Jr., MD [address] [place] [address] Non-pressure chronic ulcer of skin of [...] Description 12/20/2024 3:30 PM EDT Clinical Support [address] [address] 12/23/2024 4:00 PM EDT Clinical Support [address] [address] 12/25/2024 3:00 PM EDT Office Visit [address] [address] Jerry Monroe Jr., MD [address] [place] [address] 12/27/2024 3:15 PM EDT Clinical Support [address] [address] 12/30/2024 3:30 PM EDT Clinical Support [address] [address] 01/01/2025 3:00 PM EDT Office Visit [address] [address] Jerry Monroe Jr., MD [address] [place] [address] 01/03/2025 3:30 PM EDT Clinical Support [address] [address] documented as of this encounter Results * Wound Treatment (11/22/2024 5:14 PM EDT) Jerry Monroe Jr., MD NURSING PATHWAYS ORDERABL ES Final Result documented in this encounter Visit Diagnoses Diagnosis 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
--- OUTSIDE RECORDS SUMMARY | 2024-11-22 16:15 | XMS_ITS | Encounter Summary ---
Author Organization [employer] ([place], [place], [place], [place]) Address [address] [place] [address] Care Team Providers Care Human Services Case Manager Name Role Phone Unavailable Primary Care Provider Unavailabl e Reason for Visit * Reason Comments Wound Care Encounter Details Date Type Department Care Team (Late st Contact Info) Description 11/22/2024 4:15 PM EDT Clinical Support [facility] 1 [place] [address] Jerry Monroe Jr., MD [address] [place] [address] Non-pressure chronic ulcer of skin of [...] Description 12/20/2024 3:30 PM EDT Clinical Support [facility] [place] 1 [place] [address] 12/23/2024 4:00 PM EDT Clinical Support [facility] 1 [place] [address] 12/25/2024 3:00 PM EDT Office Visit [facility] [place] 1 [place] [address] Jerry Monroe Jr., MD [address] [place] [address] 12/27/2024 3:15 PM EDT Clinical Support [facility] 1 [place] [address] 12/30/2024 3:30 PM EDT Clinical Support [facility] 1 [place] [address] 01/01/2025 3:00 PM EDT Office Visit [facility] 1 [place] [address] Jerry Monroe Jr., MD [address] [place] [address] 01/03/2025 3:30 PM EDT Clinical Support [facility] [place] 1 [place] [address] documented as of this encounter Procedures Procedure [...]
--- OUTSIDE RECORDS SUMMARY | 2024-11-27 14:20 | XMS_ITS | Encounter Summary ---
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 Patient is getting daily infusions at [facility] through his PICC line for [...] provider verified the correct patient, procedure, equipment, lead performance support analyst, and site/side marked as required. [...] provider verified the correct patient, procedure, equipment, lead performance support analyst, and site/side marked as required. [...] Description 12/20/2024 3:30 PM EDT Clinical Support [facility] 1 [place] [address] 12/23/2024 4:00 PM EDT Clinical Support [facility] 1 [place] [address] 12/25/2024 3:00 PM EDT Office Visit [facility] 1 [place] [address] Jerry Monroe Jr., MD [address] [place] [address] 12/27/2024 3:15 PM EDT Clinical Support [facility] 1 [place] [address] 12/30/2024 3:30 PM EDT Clinical Support [address] [address] 01/01/2025 3:00 PM EDT Office Visit [facility] 1 [place] [address] Jerry Monroe Jr., MD [address] [place] [address] 01/03/2025 3:30 PM EDT Clinical Support [facility] 1 [place] [address] documented as of this encounter Procedures Procedure Name Priority Date/Time Associated Diagnosis Comments [place] DEBRIDEMENT MUSCLE &/FASCIA EA ADDL 20 SQ CM Routine 11/27/2024 2:20 PM EDT 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) Localized tissue (HCC) Other specified local infections of the skin and subcutaneous tissue [place] DEBRIDEMENT MUSCLE &/FASCIA EA ADDL 20 SQ CM Routine 11/27/2024 2:20 PM EDT 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) Localized tissue (HCC) Other specified local infections of the skin and subcutaneous tissue [place] DEBRIDEMENT MUSCLE &/FASCIA 1ST 20 SQ CM/< Routine 11/27/2024 2:20 PM EDT 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) Localized tissue (HCC) Other specified local infections of the skin and subcutaneous tissue [place] DEBRIDEMENT MUSCLE &/FASCIA EA ADDL 20 SQ CM Routine 11/27/2024 2:20 PM EDT 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) Localized tissue (HCC) Other specified local infections of the skin and subcutaneous tissue [place] DEBRIDEMENT MUSCLE &/FASCIA EA ADDL 20 SQ CM Routine 11/27/2024 2:20 PM EDT 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) Localized tissue (HCC) Other specified local infections of the skin and subcutaneous tissue [place] DEBRIDEMENT MUSCLE &/FASCIA 1ST 20 SQ CM/< Routine 11/27/2024 2:20 PM EDT 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 [...] MD PROCEDURE/MINOR SURGICAL ORDERABLES Final Result * [place] DEBRIDEMENT MUSCLE &/FASCIA 1ST 20 SQ CM/<, [place] DEBRIDEMENT MUSCLE &/FASCIA EA ADDL 20SQ CM, [place] DEBRIDEMENT MUSCLE &/FASCIA EA ADDL 20 SQ [...] provider verified the correct patient, procedure, equipment, lead performance support analyst, and site/side marked as required. [...]
--- OUTSIDE RECORDS SUMMARY | 2024-11-29 16:00 | XMS_ITS | Encounter Summary ---
Author Organization [employer] ([place], [place], [place], [place]) Address [address] [place] [address] Care Team Providers Care Speech Language Pathologist Travel Name Role Phone Unavailable Primary Care Provider Unavailabl e Reason for Visit * Reason Comments Wound Care Encounter Details Date Type Department Care Team (Late st Contact Info) Description 11/29/2024 4:00 PM EDT Clinical Support [facility] [address] [place] [address] Jerry Monroe Jr., MD [address] [place] [address] Social History Tobacco Use Types Packs/Day Years [...] Sign Reading Time Taken Comments Blood Pressure 193/78 11/29/2024 4:37 PM EDT Pulse 69 11/29/2024 4:37 PM EDT Temperature 36.4 C (97.5 F) 11/29/2024 4:37 PM EDT Respiratory Rate 20 11/29/2024 4:37 PM EDT Oxygen Saturation - - Inhaled Oxygen Concentration - - Weight - - Height - - Body Mass Index - - documented in this encounter Progress Notes * Nallely Sky RN - 11/29/2024 4:00 PM EDT Dressings removed. Below orders followed and patient tolerated procedures well. Removed from left groin 1 black foam and from left medial upper leg 1 white and 1 black foam Comments: Remove dressings. Clean wound with 0.9 % normal saline. May use Lidocaine 5% as needed for pain control during clinic appointments. Skin barrier film to sara wounds and window pane AND may use eakins as needed Wound site- left groin Primary- black foam and NPWT at 125mmhg continous ( 1 piece used) Change-3x week Wound site left upper medial leg Primary- white foam ( 1 piece used)in wound base and into tunnel at distal part of knee wound, thenblack foam( 1 piece used) and NPWT at 125 mmhg continous Change 3x week Use y connector to connect wounds both wounds Dressings to be changed 3 times a week. POC as above If your wound vac is not working and you can not restart after placing new wound vac tape around wound then remove all the wound vac foam and place saline moist guaze in the wound then dry guaze and tape in place. Change this every 12 hours and contact home health nurse( if you have home health[facility]. * Nallely Sky RN - 11/29/2024 4:00 PM EDT Images from the original note were not included. Attached media from the original note were not included. 11/29/24 1649 Wound 11/18/24 Leg upper Left;Medial Date First Assessed/Time First Assessed: 11/18/24 1505 Wound Approximate Age at First Assessment (Weeks): 4 weeks Location: Leg upper Wound Location Orientation: Left;Medial Wound Image Images linked Site Assessment Granulation;Sloughing Sara-Wound Assessment Scarred Wound Length (cm) 5 cm Wound Width (cm) 1 cm Wound Surface Area (cm^2) 5 cm^2 Wound Depth (cm) 3.9 cm Wound Volume (cm^3) 19.5 cm^3 Margins Well-defined edges Wound Healing % 39 Drainage Description Serosanguineous Drainage Amount Small Odor None Wound Bed Granulation (%) 90 % Wound Bed Slough (%) 10 % Non-staged Wound Description Full thickness documented in this encounter Plan of Treatment Upcoming Encounters Date Type Department Care Team (Late st Contact Info) Description 12/20/2024 3:30 PM EDT Clinical Support [facility] [address] [place] [address] 12/23/2024 4:00 PM EDT Clinical Support [facility] 1 [place] [address] 12/25/2024 3:00 PM EDT Office Visit [facility] 1 [place] [address] Jerry Monroe Jr., MD [address] [place] [address] 12/27/2024 3:15 PM EDT Clinical Support [address] [address] 12/30/2024 3:30 PM EDT Clinical Support [facility] 1 [place] [address] 01/01/2025 3:00 PM EDT Office Visit [address] [address] Jerry Monroe Jr., MD [address] [place] [address] 01/03/2025 3:30 PM EDT Clinical Support [facility] [address] [place] [address] documented as of this encounter Visit Diagnoses Not on filedocumented in this encounter
--- OUTSIDE RECORDS SUMMARY | 2024-12-02 14:15 | XMS_ITS | Encounter Summary ---
Author Organization [employer] ([place], [place], [place], [place]) Address [address] [place] [address] Care Team Providers Care Trimmer Press Clippings Name Role Phone Unavailable Primary Care Provider Unavailabl e Reason for Visit * Reason Comments Wound Care Nurse visit for woun d vac and dressing change, wound care Encounter Details Date Type Department Care Team (Late st Contact Info) Description 12/02/2024 2:15 PM EDT Clinical Support [facility] 1 [place] [address] Jerry Monroe Jr., MD [address] [place] [address] Non-pressure chronic ulcer of skin of [...] Description 12/20/2024 3:30 PM EDT Clinical Support [facility] [place] 1 [place] [address] 12/23/2024 4:00 PM EDT Clinical Support [facility] [place] 1 [place] [address] 12/25/2024 3:00 PM EDT Office Visit [facility] [place] 1 [place] [address] Jerry Monroe Jr., MD [address] [place] [address] 12/27/2024 3:15 PM EDT Clinical Support [facility] [place] 1 [place] [address] 12/30/2024 3:30 PM EDT Clinical Support [facility] [place] 1 [place] [address] 01/01/2025 3:00 PM EDT Office Visit [facility] 1 [place] [address] Jerry Monroe Jr., MD [address] [place] [address] 01/03/2025 3:30 PM EDT Clinical Support 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
--- OUTSIDE RECORDS SUMMARY | 2024-12-09 15:30 | XMS_ITS | Encounter Summary ---
Author Organization [employer] ([place], [place], [place], [place]) Address [address] [place] [address] Care Team Providers Care Manager Order Name Role Phone Unavailable Primary Care Provider Unavailabl e Reason for Visit * Reason Comments Wound Care Encounter Details Date Type Department Care Team (Late st Contact Info) Description 12/09/2024 3:30 PM EDT Clinical Support [facility] 1 [place] [address] Jerry Monroe Jr., MD [address] [place] [address] Non-pressure chronic ulcer of skin of [...] Description 12/20/2024 3:30 PM EDT Clinical Support [facility] Care [address] [address] 12/23/2024 4:00 PM EDT Clinical Support [address] [address] 12/25/2024 3:00 PM EDT Office Visit [address] [address] Jerry Monroe Jr., MD [address] [place] [address] 12/27/2024 3:15 PM EDT Clinical Support [address] [address] 12/30/2024 3:30 PM EDT Clinical Support [facility] Care [address] [address] 01/01/2025 3:00 PM EDT Office Visit [address] [address] Jerry Monroe Jr., MD [address] [place] [address] 01/03/2025 3:30 PM EDT Clinical Support [address] [address] documented as of this encounter Procedures Procedure [...]
--- OUTSIDE RECORDS SUMMARY | 2024-12-13 12:00 | XMS_ITS | Encounter Summary ---
Author Organization [employer] ([place], [place], [place], [place]) Address [address] [place] [address] Care Team Providers Care Meteorological Aide Name Role Phone Unavailable Primary Care Provider Unavailabl e Reason for Visit * Reason Comments Wound Care Encounter Details Date Type Department Care Team (Late st Contact Info) Description 12/13/2024 12:00 PM EDT Clinical Support [facility] 1 [place] [address] Jerry Monroe Jr., MD [address] [place] [address] Non-pressure chronic ulcer of skin of [...] Description 12/20/2024 3:30 PM EDT Clinical Support [facility] [place] 1 [place] [address] 12/23/2024 4:00 PM EDT Clinical Support [facility] [place] 1 [place] [address] 12/25/2024 3:00 PM EDT Office Visit [facility] [place] 1 [place] [address] Jerry Mnoroe Jr., MD [address] [place] [address] 12/27/2024 3:15 PM EDT Clinical Support [facility] [place] 1 [place] [address] 12/30/2024 3:30 PM EDT Clinical Support [facility] [place] 1 [place] [address] 01/01/2025 3:00 PM EDT Office Visit [facility] 1 [place] [address] Jerry Monroe Jr., MD [address] [place] [address] 01/03/2025 3:30 PM EDT Clinical Support [facility] [place] 1 [place] [address] documented as of this encounter Procedures Procedure [...]
--- OUTSIDE RECORDS SUMMARY | 2024-12-16 15:30 | XMS_ITS | Encounter Summary ---
Author Organization [employer] ([place], [place], [place], [place]) Address [address] [place] [address] Care Team Providers Care Manager Rn Name Role Phone Unavailable Primary Care Provider Unavailabl e Reason for Visit * Reason Comments Wound Care Nurse visit for woun d care, wound vac and dressing change Encounter Details Date Type Department Care Team (Late st Contact Info) Description 12/16/2024 3:30 PM EDT Clinical Support [facility] [address] [place] [address] Jerry Monroe Jr., MD [address] [place] [address] Non-pressure chronic ulcer of skin of [...] Description 12/20/2024 3:30 PM EDT Clinical Support [address] [address] 12/23/2024 4:00 PM EDT Clinical Support [address] [address] 12/25/2024 3:00 PM EDT Office Visit [address] [address] Jerry Monroe Jr., MD [address] [place] [address] 12/27/2024 3:15 PM EDT Clinical Support [address] [address] 12/30/2024 3:30 PM EDT Clinical Support [address] [address] 01/01/2025 3:00 PM EDT Office Visit [facility] [address] [place] [phone] Jerry Monroe Jr., MD [address] [place] [address] 01/03/2025 3:30 PM EDT Clinical Support [facility] [place] [address] [place] [address] documented as of this encounter Visit Diagnoses Diagnosis 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
--- OUTSIDE RECORDS SUMMARY | 2024-12-18 15:00 | XMS_ITS | Encounter Summary ---
Author Organization [employer] ([place], [place], [place], [place]) Address [address] [place] [address] Care Team Providers Care Risk Control Specialist Name Role Phone Unavailable Primary Care Provider Unavailabl e Reason for Visit * Reason Comments Wound Care Encounter Details Date Type Department Care Team (Late st Contact Info) Description 12/18/2024 3:00 PM EDT Office Visit [facility] 1 [place] [address] Jerry Monroe Jr., MD [address] [place] [address] Non-pressure chronic ulcer of skin of [...] the correct patient, procedure, equipment, lab support technician, and site/side marked as required. [...] Description 12/20/2024 3:30 PM EDT Clinical Support [address] [address] 12/23/2024 4:00 PM EDT Clinical Support [address] [address] 12/25/2024 3:00 PM EDT Office Visit [address] [address] Jerry Monroe Jr., MD [address] [place] [address] 12/27/2024 3:15 PM EDT Clinical Support [address] [address] 12/30/2024 3:30 PM EDT Clinical Support [facility] 1 [place] [address] 01/01/2025 3:00 PM EDT Office Visit [facility] 1 [place] [address] Jerry Monroe Jr., MD [address] [place] [address] 01/03/2025 3:30 PM EDT Clinical Support [facility] 1 [place] [address] documented as of this encounter Procedures Procedure [...] the correct patient, procedure, equipment, lab support technician, and site/side marked as required. [...]
--- OUTSIDE RECORDS SUMMARY | 2024-12-20 08:03 | XMS_ITS | Encounter Summary ---
Author Organization [employer] ([place], [place], [place], [place]) Address [address] [place] [address] Care Team Providers Care Gravel Screener Name Role Phone Unavailable Primary Care Provider [...] Description 12/20/2024 3:30 PM EDT Clinical Support [facility] [address] [address] 12/23/2024 4:00 PM EDT Clinical Support [facility] [address] [address] 12/25/2024 3:00 PM EDT Office Visit [address] [address] Jerry Monroe Jr., MD [address] [place] [address] 12/27/2024 3:15 PM EDT Clinical Support [address] [address] 12/30/2024 3:30 PM EDT Clinical Support [address] [address] 01/01/2025 3:00 PM EDT Office Visit [facility] 1 [place] [address] Jerry Monroe Jr., MD [address] [place] [address] 01/03/2025 3:30 PM EDT Clinical Support [facility] [place] 1 [place] [address] documented as of this encounter Visit Diagnoses Not on filedocumented in this encounter
--- OUTSIDE RECORDS SUMMARY | 2024-12-20 08:05 | XMS_ITS | Encounter Summary ---
Author Organization [employer] ([place], [place], [place], [place]) Address [address] [place] [address] Care Team Providers Care Driller Helper Name Role Phone Unavailable Primary [...] [facility] [address] [address] 12/23/2024 4:00 PM EDT Clinical Support [facility] [address] [address] 12/25/2024 3:00 PM EDT Office Visit [address] [address] Jerry Mnoroe Jr., MD [address] [place] [address] 12/27/2024 3:15 PM EDT Clinical Support [address] [address] 12/30/2024 3:30 PM EDT Clinical Support [address] [address] 01/01/2025 3:00 PM EDT Office Visit [facility] 1 [place] [address] Jerry Monroe Jr., MD [address] [place] [address] 01/03/2025 3:30 PM EDT Clinical Support [facility] [place] 1 [place] [address] documented as of this encounter Visit Diagnoses Not on filedocumented in this encounter
--- OUTSIDE RECORDS SUMMARY | 2024-12-20 08:14 | XMS_ITS | Encounter Summary ---
Author Organization [employer] ([place], [place], [place], [place]) Address [address] [place] [address] Care Team Providers Care Instructor Private Name Role Phone Unavailable Primary Care Provider [...] Description 12/20/2024 3:30 PM EDT Clinical Support [facility] [address] [address] 12/23/2024 4:00 PM EDT Clinical Support [facility] Care [address] [address] 12/25/2024 3:00 PM EDT Office Visit [address] [address] Jerry Monroe Jr., MD [address] [place] [address] 12/27/2024 3:15 PM EDT Clinical Support [address] [address] 12/30/2024 3:30 PM EDT Clinical Support [address] [address] 01/01/2025 3:00 PM EDT Office Visit [facility] 1 [place] [address] Jerry Monroe Jr., MD [address] [place] [address] 01/03/2025 3:30 PM EDT Clinical Support [facility] [place] [address] [place] [address] documented as of this encounter Visit Diagnoses Not on filedocumented in this encounter
--- OUTSIDE RECORDS SUMMARY | 2024-12-20 08:14 | XMS_ITS | Encounter Summary ---
Author Organization [employer] ([place], [place], [place], [place]) Address [address] [place] [address] Care Team Providers Care Labor/Excavator Name Role Phone Unavailable Primary Care Provider [...] Description 12/20/2024 3:30 PM EDT Clinical Support [facility] [address] [address] 12/23/2024 4:00 PM EDT Clinical Support [facility] [address] [address] 12/25/2024 3:00 PM EDT Office Visit [address] [address] Jerry Monroe Jr., MD [address] [place] [address] 12/27/2024 3:15 PM EDT Clinical Support [address] [address] 12/30/2024 3:30 PM EDT Clinical Support [address] [address] 01/01/2025 3:00 PM EDT Office Visit [facility] 1 [place] [address] Jerry Monroe Jr., MD [address] [place] [address] 01/03/2025 3:30 PM EDT Clinical Support [facility] [place] 1 [place] [address] documented as of this encounter Visit Diagnoses Not on filedocumented in this encounter
[2024-12-20 08:18] VITALS: BP 119/61; PULSE 66; RESP 18; O2SAT 95
[2024-12-20] MEDS: MICAFUNGIN SODIUM IV (08:18)
[2024-12-20] MEDS: SODIUM CHLORIDE 0.9% IV (08:18)
--- OUTSIDE RECORDS SUMMARY | 2024-12-20 08:18 | XMS_ITS | Encounter Summary ---
Author Organization [employer] ([place], [place], [place], [place]) Address [address] [place] [address] Care Team Providers Care Service Worker Helper Name Role Phone Unavailable Primary Care [...] Support [facility] [address] [address] 12/23/2024 4:00 PM EDT Clinical Support [facility] Care [address] [address] 12/25/2024 3:00 PM EDT Office Visit [address] [address] Jerry Monroe Jr., MD [address] [place] [address] 12/27/2024 3:15 PM EDT Clinical Support [address] [address] 12/30/2024 3:30 PM EDT Clinical Support [address] [address] 01/01/2025 3:00 PM EDT Office Visit [facility] 1 [place] [address] Jerry Monroe Jr., MD [address] [place] [address] 01/03/2025 3:30 PM EDT Clinical Support [facility] [place] [address] [place] [address] documented as of this encounter Visit Diagnoses Not on filedocumented in this encounter
--- OUTSIDE RECORDS SUMMARY | 2024-12-20 08:18 | XMS_ITS | Clinical Summary ---
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) 12/16/2024 3:30 PM EDT Clinical Support [facility] [place] [address] [place] [address] Jerry Monroe Jr., MD 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) 12/16/2024 Travel 12/13/2024 12:00 PM EDT Clinical Support [facility] 1 [place] [address] Jerry Monroe Jr., MD 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) 12/13/2024 Travel 12/11/2024 2:40 PM EDT Office Visit [facility] 1 [place] [address] Jerry Monroe Jr., MD 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); Localized tissue (HCC); Other specified local infections of the skin and subcutaneous tissue; Diabetes mellitus with skin ulcer (HCC) 12/09/2024 3:30 PM EDT Clinical Support [facility] 1 [place] [address] Jerry Monroe Jr., MD 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) 12/09/2024 Travel 12/04/2024 1:40 PM EDT Office Visit [facility] [address] [place] [phone] Jerry Monroe Jr., MD 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); Localized tissue (HCC); Other specified local infections of the skin and subcutaneous tissue; Diabetes mellitus with skin ulcer (HCC) 12/04/2024 Travel 12/02/2024 2:15 PM EDT Clinical Support [facility] [place] [address] [place] [phone] Jerry Monroe Jr., MD 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) 12/02/2024 Travel 11/29/2024 4:00 PM EDT Clinical Support [facility] [place] [address] [place] [phone] Jerry Monroe Jr., MD 11/27/2024 2:20 PM EDT Office Visit [facility] [place] [address] [place] [phone] Jerry Monroe Jr., MD 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); Localized tissue (HCC); Other specified local infections of the skin and subcutaneous tissue; Diabetes mellitus with skin ulcer (HCC) 11/27/2024 Travel 11/22/2024 4:15 PM EDT Clinical Support [facility] [place] 1 [place] [address] Jerry Monroe Jr., MD 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) 11/20/2024 2:15 PM EDT Clinical Support [facility] [place] 1 [place] [address] Jerry Monroe Jr., MD 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) 11/20/2024 Travel 11/18/2024 1:10 PM EDT Office Visit [facility] 1 [place] [address] Jerry Monroe Jr., MD Non-pressure chronic ulcer [...] Description 12/20/2024 3:30 PM EDT Clinical Support [facility] 1 [place] [address] 12/23/2024 4:00 PM EDT Clinical Support [facility] [place] 1 [place] [address] 12/25/2024 3:00 PM EDT Office Visit [facility] 1 [place] [address] Jerry Monreo Jr., MD [address] [place] [address] 12/27/2024 3:15 PM EDT Clinical Support [facility] [place] 1 [place] [address] 12/30/2024 3:30 PM EDT Clinical Support [facility] 1 [place] [phone] 01/01/2025 3:00 PM EDT Office Visit [facility] 1 [place] [address] Jerry Monroe Jr., MD [address] [place] [address] 01/03/2025 3:30 PM EDT Clinical Support [facility] 1 [place] [phone] Health Maintenance Due Date Last Done Comments [...] 02/06/2021 Tobacco Cessation Counseling and Screening (12+) 12/18/2025 12/18/2024 Procedures Procedure Name Priority Date/Time Associated Diagnosis Comments ND DEBRIDEMENT MUSCLE &/FASCIA EA ADDL 20 SQ CM Routine 12/18/2024 3:00 PM EDT 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) Localized tissue (HCC) Other specified local infections of the skin and subcutaneous tissue ND DEBRIDEMENT MUSCLE &/FASCIA 1ST 20 SQ CM/< [...] other sites with necrosis of muscle (HCC) ND DEBRIDEMENT MUSCLE &/FASCIA EA ADDL 20 SQ CM Routine 12/11/2024 2:40 PM EDT 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) Localized tissue (HCC) Other specified local infections of the skin and subcutaneous tissue ND DEBRIDEMENT MUSCLE &/FASCIA 1ST 20 SQ CM/< Routine 12/11/2024 2:40 PM EDT 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) Localized tissue (HCC) Other specified local infections of the skin and subcutaneous tissue ND DEBRIDEMENT MUSCLE &/FASCIA EA ADDL 20 SQ CM Routine 12/11/2024 2:40 PM EDT 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) Localized tissue (HCC) Other specified local infections of the skin and subcutaneous tissue ND DEBRIDEMENT MUSCLE &/FASCIA 1ST 20 SQ CM/< Routine 12/11/2024 2:40 PM EDT 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) Localized tissue (HCC) Other specified local infections of the skin and subcutaneous tissue WOUND TREATMENT Routine 12/09/2024 5:03 PM EDT 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) ND DEBRIDEMENT MUSCLE &/FASCIA EA ADDL 20 SQ CM Routine 12/04/2024 1:40 PM EDT 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) Localized tissue (HCC) Other specified local infections of the skin and subcutaneous tissue ND DEBRIDEMENT MUSCLE &/FASCIA 1ST 20 SQ CM/< Routine 12/04/2024 1:40 PM EDT 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) Localized tissue (HCC) Other specified local infections of the skin and subcutaneous tissue ND DEBRIDEMENT MUSCLE &/FASCIA EA ADDL 20 SQ CM Routine 12/04/2024 1:40 PM EDT 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) Localized tissue (HCC) Other specified local infections of the skin and subcutaneous tissue ND DEBRIDEMENT MUSCLE &/FASCIA 1ST 20 SQ CM/< Routine 12/04/2024 1:40 PM EDT 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) Localized tissue (HCC) Other specified local infections of the skin and subcutaneous tissue ND DEBRIDEMENT MUSCLE &/FASCIA EA ADDL 20 SQ CM Routine 11/27/2024 2:20 PM EDT 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) Localized tissue (HCC) Other specified local infections of the skin and subcutaneous tissue ND DEBRIDEMENT MUSCLE &/FASCIA EA ADDL 20 SQ CM Routine 11/27/2024 2:20 PM EDT 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) Localized tissue (HCC) Other specified local infections of the skin and subcutaneous tissue ND DEBRIDEMENT MUSCLE &/FASCIA 1ST 20 SQ CM/< Routine 11/27/2024 2:20 PM EDT 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) Localized tissue (HCC) Other specified local infections of the skin and subcutaneous tissue ND DEBRIDEMENT MUSCLE &/FASCIA EA ADDL 20 SQ CM Routine 11/27/2024 2:20 PM EDT 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) Localized tissue (HCC) Other specified local infections of the skin and subcutaneous tissue ND DEBRIDEMENT MUSCLE &/FASCIA EA ADDL 20 SQ CM Routine 11/27/2024 2:20 PM EDT 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) Localized tissue (HCC) Other specified local infections of the skin and subcutaneous tissue ND DEBRIDEMENT MUSCLE &/FASCIA 1ST 20 SQ CM/< Routine 11/27/2024 2:20 PM EDT 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) Localized tissue (HCC) Other specified local infections of the skin and subcutaneous tissue WOUND TREATMENT Routine 11/22/2024 5:14 PM EDT 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) ND DEBRIDEMENT MUSCLE &/FASCIA EA ADDL 20 SQ CM Routine 11/18/2024 1:10 PM EDT 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) Localized tissue (HCC) Other specified local infections of the skin and subcutaneous tissue ND DEBRIDEMENT MUSCLE &/FASCIA EA ADDL 20 SQ CM Routine 11/18/2024 1:10 PM EDT 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) Localized tissue (HCC) Other specified local infections of the skin and subcutaneous tissue ND DEBRIDEMENT MUSCLE &/FASCIA 1ST 20 SQ CM/< Routine 11/18/2024 1:10 PM EDT 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) Localized tissue (HCC) Other specified local infections of the skin and subcutaneous tissue ND DEBRIDEMENT MUSCLE &/FASCIA EA ADDL 20 SQ CM Routine 11/18/2024 1:10 PM EDT 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) Localized tissue (HCC) Other specified local infections of the skin and subcutaneous tissue ND DEBRIDEMENT MUSCLE &/FASCIA EA ADDL 20 SQ CM Routine 11/18/2024 1:10 PM EDT 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 Debridement Details [...] NURSING PATHWAYS ORDERABL ES Final Result * ND DEBRIDEMENT MUSCLE &/FASCIA 1ST 20 SQ CM/<, ND DEBRIDEMENT MUSCLE &/FASCIA EA ADDL 20SQ CM [...] the correct patient, procedure, equipment, sales support administrator, and site/side marked as required. Debridement Details [...] MD PROCEDURE/MINOR SURGICAL ORDERABLES Final Result * ND DEBRIDEMENT MUSCLE &/FASCIA 1ST 20 SQ CM/<, ND DEBRIDEMENT MUSCLE &/FASCIA EA ADDL 20SQ CM [...] the correct patient, procedure, equipment, sales support administrator, and site/side marked as required. Debridement Details [...] MD PROCEDURE/MINOR SURGICAL ORDERABLES Final Result * ND DEBRIDEMENT MUSCLE &/FASCIA 1ST 20 SQ CM/<, ND DEBRIDEMENT MUSCLE &/FASCIA EA ADDL 20SQ CM [...] the correct patient, procedure, equipment, sales support administrator, and site/side marked as required. Debridement Details [...] MD PROCEDURE/MINOR SURGICAL ORDERABLES Final Result * ND DEBRIDEMENT MUSCLE &/FASCIA 1ST 20 SQ CM/<, ND DEBRIDEMENT MUSCLE &/FASCIA EA ADDL 20SQ CM [...] the correct patient, procedure, equipment, sales support administrator, and site/side marked as required. Debridement Details [...] MD PROCEDURE/MINOR SURGICAL ORDERABLES Final Result * ND DEBRIDEMENT MUSCLE &/FASCIA 1ST 20 SQ CM/<, ND DEBRIDEMENT MUSCLE &/FASCIA EA ADDL 20SQ CM, ND DEBRIDEMENT MUSCLE &/FASCIA EA ADDL 20 SQ [...] the correct patient, procedure, equipment, sales support administrator, and site/side marked as required. Debridement Details [...] MD PROCEDURE/MINOR SURGICAL ORDERABLES Final Result * ND DEBRIDEMENT MUSCLE &/FASCIA 1ST 20 SQ CM/<, ND DEBRIDEMENT MUSCLE &/FASCIA EA ADDL 20SQ CM, ND DEBRIDEMENT MUSCLE &/FASCIA EA ADDL 20 SQ [...] the correct patient, procedure, equipment, sales support administrator, and site/side marked as required. Debridement Details [...] MD PROCEDURE/MINOR SURGICAL ORDERABLES Final Result * ND DEBRIDEMENT MUSCLE &/FASCIA 1ST 20 SQ CM/<, ND DEBRIDEMENT MUSCLE &/FASCIA EA ADDL 20SQ CM, ND DEBRIDEMENT MUSCLE &/FASCIA EA ADDL 20 SQ [...] the correct patient, procedure, equipment, sales support administrator, and site/side marked as required. Debridement Details [...] MD PROCEDURE/MINOR SURGICAL ORDERABLES Final Result * ND DEBRIDEMENT MUSCLE &/FASCIA 1ST 20 SQ CM/<, ND DEBRIDEMENT MUSCLE &/FASCIA EA ADDL 20SQ CM, ND DEBRIDEMENT MUSCLE &/FASCIA EA ADDL 20 SQ [...] the correct patient, procedure, equipment, sales support administrator, and site/side marked as required. Debridement Details [...] Final Result from Last 3 Months Insurance [facility] [employer] [place]
--- OUTSIDE RECORDS SUMMARY | 2024-12-20 08:21 | XMS_ITS | Encounter Summary ---
Author Organization [employer] ([place], [place], [place], [place]) Address [address] [place] [address] Care Team Providers Care Rn Clinical Name Role Phone Unavailable Primary Care Provider [...] Support [facility] [address] [address] 12/23/2024 4:00 PM EDT Clinical Support [facility] [address] [address] 12/25/2024 3:00 PM EDT Office Visit [address] [address] Jerry Monroe Jr., MD [address] [place] [address] 12/27/2024 3:15 PM EDT Clinical Support [address] [address] 12/30/2024 3:30 PM EDT Clinical Support [address] [address] 01/01/2025 3:00 PM EDT Office Visit [facility] 1 [place] [address] Jerry Monroe Jr., MD [address] [place] [address] 01/03/2025 3:30 PM EDT Clinical Support [facility] [place] 1 [place] [phone] documented as of this encounter Visit Diagnoses Not on filedocumented in this encounter
--- OUTSIDE RECORDS SUMMARY | 2024-12-20 08:24 | XMS_ITS | Encounter Summary ---
Author Organization [email or web address] ([place], [place], [place], [place]) Address [address] [place] [address] Care Team Providers Care Cuprous Chloride Helper Name Role Phone Unavailable Primary Care [...] Description 12/20/2024 3:30 PM EDT Clinical Support [facility] [address] [address] 12/23/2024 4:00 PM EDT Clinical Support [facility] [address] [address] 12/25/2024 3:00 PM EDT Office Visit [address] [address] Jerry Monroe Jr., MD [address] [place] [address] 12/27/2024 3:15 PM EDT Clinical Support [address] [address] 12/30/2024 3:30 PM EDT Clinical Support [address] [address] 01/01/2025 3:00 PM EDT Office Visit [facility] 1 [place] [address] Jerry Monroe Jr., MD [address] [place] [address] 01/03/2025 3:30 PM EDT Clinical Support [facility] [place] 1 [place] [phone] documented as of this encounter Visit Diagnoses Not on filedocumented in this encounter
--- OUTSIDE RECORDS SUMMARY | 2024-12-20 08:27 | XMS_ITS | Encounter Summary ---
Author Organization [employer] ([place], [place], [place], [place]) Address [address] [place] [address] Care Team Providers Care Roasterman Name Role Phone Unavailable Primary Care Provider [...] Description 12/20/2024 3:30 PM EDT Clinical Support [facility] [address] [address] 12/23/2024 4:00 PM EDT Clinical Support [facility] [address] [address] 12/25/2024 3:00 PM EDT Office Visit [address] [address] Jerry Monroe Jr., MD [address] [place] [address] 12/27/2024 3:15 PM EDT Clinical Support [address] [address] 12/30/2024 3:30 PM EDT Clinical Support [address] [address] 01/01/2025 3:00 PM EDT Office Visit [facility] 1 [place] [address] Jerry Monroe Jr., MD [address] [place] [address] 01/03/2025 3:30 PM EDT Clinical Support [facility] [place] 1 [place] [phone] documented as of this encounter Visit Diagnoses Not on filedocumented in this encounter
[2024-12-20 09:20] VITALS: BP 133/61; PULSE 64; RESP 18; O2SAT 97
== END 2024-12-20 23:59 | disposition home or self-care (01) ==
PROVIDERS: PCP Family Medicine
DX: T14.8XXA Other injury of unspecified body region, initial encounter (principal); L08.9 Local infection of the skin and subcutaneous tissue, unspecified
CPT/HCPCS: 96365; J2248

== ENCOUNTER 2024-12-26 08:28 | Day surgery (SDC) | payer MEDICARE, OTHER, SELFPAY ==
[2024-12-26] VITALS (7 sets, daily range): BP systolic 147–173; BP diastolic 50–81; PULSE 83–87; RESP 18–20; TEMP 36.1–36.6; O2SAT 93–97; BMI 31.0
--- NOTE | 2024-12-26 07:06 | IR_ITS ---
APPROVED REPORT Patient Location: Outpatient Sales Driver: CALVIN Amezquita RT (R) PROCEDURES Attempted right ulnar artery access Attempted right radial artery access INDICATION Known peripheral artery disease, Known coronary artery disease Informed consent was obtained prior to the procedure. COMPLICATIONS NONE Estimated Blood Loss: LESS THAN 10 ML TECHNIQUE Initially the left anterior aspect of the wrist was sterilely prepped. Patient had a surgical scar along the lateral aspect of the left wrist indicating previous harvesting of the left radial artery. The ulnar artery did have a +2 pulse however given the absence of the radial artery it was decided not to access the ulnar artery. 1% lidocaine was used anesthetize the right anterior aspect of the right wrist and the right ulnar and right radial artery were both attempted to be cannulated without success. The apparatus was removed and the procedure was then aborted IMPRESSION Unable to achieve vascular access PLAN 1. Recommend referral to [facility] for left brachial artery cutdown and diagnostic coronary angiography Electronically signed by : Mendoza Workman MD 12/26/2024 14:57:48
[2024-12-26] MEDS: NEOSPORIN OINTMENT 0.9GM UDP 1 EACH TP (08:15)
[2024-12-26 09:03] LABS: Hematocrit 35.3 % (42.0-52.0); Hemoglobin 11.4 g/dL (14.1-18.0); Immature Granulocytes % 0.5 %; Mean Corpuscular HGB Conc 32.3 g/dL (31.8-35.4); Mean Corpuscular Hemoglobin 27.9 pg (27.0-31.2); Mean Corpuscular Volume 86.3 fl (80-94); Nucleated Red Blood Cells % 0 %; Platelet Count 376 K/mm3 (142-424); Red Blood Count 4.09 M/mm3 (4.60-6.20); Red Cell Distribution Width-SD 45.1 fL; White Blood Count 9.3 K/mm3 (4.8-10.8)
[2024-12-26 09:19] LABS: Chloride 95 mmol/L (98-107); Potassium 5.6 mmoL/L (3.5-5.1); Sodium 132 mmol/L (136-145)
[2024-12-26] MEDS: OXYCODONE 5MG W/APAP 325MG TABLET 1 EACH PO (09:19)
[2024-12-26 09:22] LABS: Anion Gap 15.6 mEq/L (5-15); Calcium 10.3 mg/dl (8.4-10.2); Carbon Dioxide 27 mmol/L (22.0-30.0)
[2024-12-26 09:36] LABS: Glucose 410 mg/dl (74-100)
[2024-12-26 09:48] LABS: Blood Urea Nitrogen 48 mg/dl (9-20); Creatinine Clearance Estimated 94 mL/min (50-200); Creatinine,Serum 0.90 mg/dl (0.66-1.25); Estimated Glomerular Filt Rate 85 ml/min (>60); GFR (African American) 102 ML/MIN (>60)
[2024-12-26] MEDS: HEPARIN 1,000 UNITS/500ML NS (CATH LAB) 3000 UNIT IV (11:06)
[2024-12-26] MEDS: VERAPAMIL 2.5MG/ML 2ML VIAL 2.5 MG IV (11:06)
[2024-12-26] MEDS: LIDOCAINE 1% 10ML MDV 10 ML IJ (11:07)
[2024-12-26] MEDS: 0.9 % SODIUM CHLORIDE 500 ML 25 ML IV (11:07)
[2024-12-26] MEDS: HEPARIN 1,000 UNITS/ML 10ML VIAL (CATH LAB) 5000 UNIT IV (11:07)
[2024-12-26] MEDS: NITROGLYCERIN 800MCG/8ML SYR (CATH LAB) 800 MCG IA (11:07)
[2024-12-26] MEDS: MIDAZOLAM HCL 1MG/ML 5ML VIAL 1 MG IV (11:08)
[2024-12-26] MEDS: FENTANYL 100MCG/2ML VIAL 50 MCG IV (11:08)
== END 2024-12-26 14:06 | disposition home or self-care (01) ==
LOC: CATHLAB 10:25 → INF 12:42
PROVIDERS: Visit Provider Internal Medicine
PROC: 4A023N7 Measurement of Cardiac Sampling and Pressure, Left Heart, Percutaneous Approach (ICD-10-PCS; CPT 93452; principal; 2024-12-26 07:15)
DX: I25.810 Atherosclerosis of coronary artery bypass graft(s) without angina pectoris (principal); Z53.8 Procedure and treatment not carried out for other reasons; I47.20 Ventricular tachycardia, unspecified; R07.9 Chest pain, unspecified; E11.9 Type 2 diabetes mellitus without complications; I10 Essential (primary) hypertension; E78.5 Hyperlipidemia, unspecified; I25.2 Old myocardial infarction; R94.31 Abnormal electrocardiogram [ECG] [EKG]; Z87.891 Personal history of nicotine dependence; Z79.82 Long term (current) use of aspirin; Z79.01 Long term (current) use of anticoagulants; Z79.02 Long term (current) use of antithrombotics/antiplatelets; Z79.4 Long term (current) use of insulin; Z79.899 Other long term (current) drug therapy; Z95.1 Presence of aortocoronary bypass graft; Z95.5 Presence of coronary angioplasty implant and graft; Z95.810 Presence of automatic (implantable) cardiac defibrillator; Z88.8 Allergy status to other drugs, medicaments and biological substances
CPT/HCPCS: 80048; 85025; 93454; 99152; 99153; 99211; C1769; G0463; J1200; J1644; J2003; J3010; J7040

== ENCOUNTER 2025-03-12 14:00 | Outpatient (CLI) | payer MEDICARE, OTHER, SELFPAY ==
--- OUTSIDE RECORDS SUMMARY | 2025-01-13 14:20 | XMS_ITS | Encounter Summary ---
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); Localized tissue (HCC); Other [...] Sign Reading Time Taken Comments Blood Pressure 129/68 01/13/2025 3:17 PM EDT Pulse 80 01/13/2025 3:17 PM EDT Temperature 36.3 C (97.3 F) 01/13/2025 3:17 PM EDT Respiratory Rate - - Oxygen Saturation - - Inhaled Oxygen Concentration - - Weight - - Height - - Body Mass Index - - documented in this encounter Patient Instructions * Patient Instructions* Candice Bo RN - 01/13/2025 3:20 PM EDT wound care at home: Leave your dressings in place Keep clean and dry until next visit signs and symptoms of infection to include: Increased redness, warmth or drainage with odor, or fever. call wound center for any concerns Call 911 or go to the ER with an emergency documented in this encounter Progress Notes * Candice Bo RN - 01/13/2025 3:20 PM EDT Images from the original note were not included. Attached media from the original note were not included. 01/13/25 1529 Wound 11/18/24 Groin Left Date First Assessed/Time First Assessed: 11/18/24 1508 Wound Approximate Age at First Assessment (Weeks): 4 weeks Location: Groin Wound Location Orientation: Left Wound Image Images linked Site Assessment Granulation;Sloughing Sara-Wound Assessment Scarred Wound Length (cm) 3.6 cm Wound Width (cm) 4.6 cm Wound Surface Area (cm^2) 13.01 cm^2 Wound Depth (cm) 2 cm Wound Volume (cm^3) 17.342 cm^3 Margins Well-defined edges Wound Healing % 93 Drainage Description Serosanguineous Drainage Amount Small Odor None Wound Bed Granulation (%) 60 % Wound Bed Slough (%) 40 % Non-staged Wound Description Full thickness * Jerry Monroe Jr., MD - 01/13/2025 3:20 PM EDTAssociated Order(s): Debridement Subjective 01/13/25 - CJA -patient returns to the wound care center today for management of the wound of his left lower abdomen/left groin. Wound today is improved. It is much more shallow. It seems to be smaller also. Debridement was medically necessary at the wound site today due to nonviable tissue present. Will continue with current regimen as it seems to be working quite well. Wound without any surrounding erythema induration odor nor periwound maceration. 01/06/25 - CJA -patient returns to the wound care center today for management of the 2 wounds of left lower abdomen/left groin and his left leg. Wound to the left leg is healed. Wound of the left abdomen/groin is improved and getting more shallow and less necrotic. Debridement was medically necessary at the wound site today due to nonviable tissue present. Wound without any surrounding erythema in duration odor nor periwound maceration. Will continue with current treatment. 12/30/24A -patient returns to the wound care center today for management of the 2 wounds of hisleft lower abdomen/left groin and his left leg. Today the wound of the left leg is limited to skin.It is nearly healed. It has done quite well. Debridement was medically necessary the wound of the left groin/abdomen. It is also measuring significantly smaller. Wounds without any surrounding erythema, induration odor nor periwound maceration. 12/25/24 -patient returns to the wound care center today for management the 2 wounds of his abdomen and his leg. Both wounds are significantly smaller. I do not appreciate any more muscular fibrous tissue in either site. Debridement was medically necessary of both wound sites today due to nonviable tissue present. Wounds without any surrounding erythema induration odor nor periwound maceratio n. There seems to be less necrosis. 12/18/24A -patient returns to the wound care center [...] on it. Overall patient is tremendously improved. 12/11/24 -patient returns to the wound care [...] upper leg. Patient was admitted to the [facility] on November 05, 2024 and [...] line. Patient is getting daily infusions at [facility] through his PICC line for [...] rash. Objective Last Recorded Vitals Blood pressure 129/68, pulse 80, temperature 97.3 ??F (36.3 ??C). Physical Exam Constitutional: Appearance: Normal appearance. Musculoskeletal: Right lower leg: No edema. Left lower leg: No edema. Skin: Findings: No erythema. Comments: Today wounds violate both epidermis and dermis layers of skin, wounds have exposed subcutaneous layer and fat layer is exposed. There are areas of necrotic tissue, localized gangrene tissueand biofilm present. Surgical removal of nonviable gangrenous tissue and biofilm infection materialis medically necessary and needed to promote healing Neurological: General: No focal deficit present. Mental Status: He is alert and oriented to person, place, and time. Psychiatric: Mood and Affect: Mood normal. Behavior: Behavior normal. Judgment: Judgment normal. Labs: No results found for this visit on 01/13/25 (from the past 24 hours). No image results found. Mono was seen today for wound care. 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 male. Debridement Wound 11/18/24 Groin Left Performed by: Jerry Monroe Jr., MD Authorized by: Jerry Monroe Jr., MD Consent Consent obtained? written Consent given by: patient Risks discussed? procedural risks discussed Immediately prior to the procedure a time out was called and the performing provider verified the correct patient, procedure, equipment, mining support worker, and site/side marked as required. Debridement Details Performed by: physician Debridement type: surgical Level of debridement: subcutaneous tissue Pain control: lidocaine 2% Pain control administration type: topical Pre-debridement measurements Length (cm): 3.6 Width (cm): 4.6 Depth (cm): 2 Surface Area (cm^2): 13.01 Post-debridement measurements Length (cm): 3.7 Width (cm): 4.7 Depth (cm): 2.1 Percent debrided: 100% Surface Area (cm^2): 13.66 Area Debrided (cm^2): 13.66 Volume (cm^3): 19.12 Tissue and other material debrided: adipose, dermis, epidermis and subcutaneous tissue Devitalized tissue debrided: biofilm Instrument(s) utilized: curette Bleeding: small Hemostasis obtained with: pressure Procedural pain (0-10): 2 Post-procedural pain: 1 Response to treatment: procedure was tolerated well * Candice Bo RN - 01/13/2025 3:20 PM EDT Pt here for a follow-up wound care provider visit. Removed pt's previously ordered dressings. Orders below followed for wound care today in clinic: Clean wounds with 0.9 % normal saline after removal of dressings May use Lidocaine 4 or 5% as needed for pain control during clinic appointments. Skin barrier to sara wound skin Wound site- left groin Skin barrier and vac drape to window-pane wounds, Sim ring as needed Primary dressings- Silver collagen at wound base, NPWT black foam Secondary dressings- NPWT drape, settings of 125 mmhg continous Change- Twice weekly in clinic Non-provider visits for dressing changes once per week, following this order for non-provider visits Plan of Care: Follow up provider visit [...] Care Team (Late st Contact Info) Description 03/17/2025 10:40 AM EST Office Visit [facility] 1 [place] [phone] Jerry Monroe Jr., MD [address] [place] [phone] 03/24/2025 10:40 AM EST Office Visit [facility] 1 [place] [phone] Jerry Monroe Jr., MD [address] [place] [phone] documented as of this encounter Procedures Procedure Name Priority Date/Time Associated Diagnosis Comments [place] DEBRIDEMENT SUBCUTANEOUS TISSUE 1ST 20 SQ CM/< Routine 01/13/2025 3:20 PM EDT 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 written Consent given by: patient Risks discussed? procedural risks discussed Immediately prior to the procedure a time out was called and the performing provider verified the correct patient, procedure, equipment, mining support worker, and site/side marked as required. Debridement Details Performed by: physician Debridement type: surgical Level of debridement: subcutaneous tissue Pain control: lidocaine 2% Pain control administration type: topical Pre-debridement measurements Length (cm): 3.6 Width (cm): 4.6 Depth (cm): 2 Surface Area (cm^2): 13.01 Post-debridement measurements Length (cm): 3.7 Width (cm): 4.7 Depth (cm): 2.1 Percent debrided: 100% Surface Area (cm^2): 13.66 Area Debrided (cm^2): 13.66 Volume (cm^3): 19.12 Tissue and other material debrided: adipose, dermis, epidermis and subcutaneous tissue Devitalized tissue debrided: biofilm Instrument(s) utilized: curette Bleeding: small Hemostasis obtained with: pressure Procedural pain (0-10): 2 Post-procedural pain: 1 Response to treatment: procedure was tolerated well Jerry Monroe Jr., MD PROCEDURE/MINOR SURGICAL ORDERABLES Final Result documented in this encounter Visit Diagnoses Diagnosis 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
--- OUTSIDE RECORDS SUMMARY | 2025-01-16 14:30 | XMS_ITS | Encounter Summary ---
Author Organization [employer] ([place], [place], [place], [place], [place]) Address [address] [place] [address] Care Team Providers Care Pest Control Worker Name Role Phone Unavailable Primary Care Provider Unavailabl e Reason for Visit * Reason Comments Wound Care Encounter Details Date Type Department Care Team (Late st Contact Info) Description 01/16/2025 3:30 PM EDT Clinical Support [facility] 1 [place] [address] Jerry Monroe Jr., MD [address] [place] [phone] Non-pressure chronic ulcer of skin of [...] as of this encounter Progress Notes * Adriana Ricks RN - 01/16/2025 3:30 PM EDT Non-provider visit today for wound care. Removed pt's previously ordered dressings. Orders below followed for wound care: Clean wounds with 0.9 % normal saline [...] NPWT drape, settings of 125 mmhg continous Pt tolerated wound care well. Policy procedures followed. Patient instructed to call wound center for any concerns. Plan of Care: non-provider visits for wound care in clinic, pt to follow up with provider as previously scheduled * Adriana Ricks RN - 01/16/2025 3:30 PM EDT Images from the original note were not included. Attached media from the original note were not included. 01/16/25 1544 Wound 11/18/24 Groin Left Date First Assessed/Time First Assessed: 11/18/24 1508 Wound Approximate Age at First Assessment (Weeks): 4 weeks Location: Groin Wound Location Orientation: Left Wound Image Images linked Site Assessment Granulation;Sloughing Sara-Wound Assessment Scarred Wound Length (cm) 4.5 cm Wound Width (cm) 3.7 cm Wound Surface Area (cm^2) 13.08 cm^2 Wound Depth (cm) 1.2 cm Wound Volume (cm^3) 10.461 cm^3 Tunneling 0 cm Wound Healing % 96 Drainage Description Serosanguineous Drainage Amount Moderate Odor None Wound Bed Granulation (%) 60 % Wound Bed Slough (%) 40 % Non-staged Wound Description Full thickness documented in this encounter Plan of Treatment Upcoming Encounters Date Type Department Care Team (Late st Contact Info) Description 03/17/2025 10:40 AM EST Office Visit [facility] 1 [place] [phone] Jerry Monroe Jr., MD [address] [place] [phone] 03/24/2025 10:40 AM EST Office Visit [facility] 1 [place] [address] Jerry Monroe Jr., MD [address] [place] [phone] documented as of this encounter Visit Diagnoses Diagnosis 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
--- OUTSIDE RECORDS SUMMARY | 2025-01-20 14:20 | XMS_ITS | Encounter Summary ---
Author Organization [employer] ([place], [place], [place], [place], [place]) Address [address] [place] [address] Care Team Providers Care Air Director Name Role Phone Unavailable Primary Care Provider Unavailabl e Reason for Visit * Reason Comments Wound Care Encounter Details Date Type Department Care Team (Late st Contact Info) Description 01/20/2025 3:20 PM EDT Office Visit [facility] 1 [place] [address] Jerry Monroe Jr., MD [address] [place] [phone] Non-pressure chronic ulcer of skin of [...] Sign Reading Time Taken Comments Blood Pressure 133/97 01/20/2025 3:27 PM EDT Pulse 67 01/20/2025 3:27 PM EDT Temperature 36.3 C (97.4 F) 01/20/2025 3:27 PM EDT Respiratory Rate 18 01/20/2025 3:27 PM EDT Oxygen Saturation - - Inhaled Oxygen Concentration - - Weight - - Height - - Body Mass Index - - documented in this encounter Patient Instructions * Patient Instructions* Adriana Devries RN - 01/20/2025 3:20 PM EDT Signs and symptoms of infection may include: Increased redness around wound, increased drainage, and / or increased pain Drainage with odor or color changes such as green / bright yellow drainage Call wound center for any concerns documented in this encounter Progress Notes * Adriana Devries RN - 01/20/2025 3:20 PM EDT Attached media from the original note were not included. 01/20/25 1535 Wound 11/18/24 Groin Left Date First Assessed/Time First Assessed: 11/18/24 1508 Wound Approximate Age at First Assessment (Weeks): 4 weeks Location: Groin Wound Location Orientation: Left Wound Image Images linked Site Assessment Granulation;Sloughing Sara-Wound Assessment Scarred Wound Length (cm) 4 cm Wound Width (cm) 3.7 cm Wound Surface Area (cm^2) 11.62 cm^2 Wound Depth (cm) 1.5 cm Wound Volume (cm^3) 11.624 cm^3 Margins Well-defined edges Wound Healing % 96 Drainage Description Serosanguineous Drainage Amount Moderate Odor None Wound Bed Granulation (%) 70 % Wound Bed Slough (%) 20 % Wound Bed Eschar (%) 10 % Non-staged Wound Description Full thickness * Adriana Devries RN - 01/20/2025 3:20 PM EDT Pt here for a follow-up wound care provider visit. Removed pt's previously ordered dressings. Orders below followed for wound care today in clinic: Plan of Care: Follow up provider visit in Pt tolerated wound care well. Policy procedures followed for wound care performed in clinic. Instructed pt on wound care. All wound care instructions along with wrap-up education printed and handed to patient at end of visit. * Jerry Monroe Jr., MD - 01/20/2025 3:20 PM EDTAssociated Order(s): Debridement Subjective 01/20/25 -patient returns to the wound care center today for management of wound of his left lower abdomen/left groin. Today the wound is smaller. I think we can do the VAC for another week andthen it will probably meet to be discontinued. Debridement was medically necessary at the wound site today due to nonviable tissue present. Wound without any surrounding erythema induration odor nor periwound maceration. 01/13/25 -patient returns to the wound care center [...] erythema induration odor nor periwound maceration. 01/06/25 -patient returns to the wound care center [...] periwound maceration. Will continue with current treatment. 12/30/24 -patient returns to the wound care center [...] n. There seems to be less necrosis. 12/18/24 -patient returns to the wound care center [...] upper leg. Patient was admitted to the [facility] on November 05, 2024 and [...] getting daily infusions at [facility] through his PICC line for antibiotics. He [...] Objective Last Recorded Vitals Blood pressure (!) 133/97, pulse 67, temperature 97.4 ??F (36.3 ??C), resp. rate 18. Physical Exam Constitutional: Appearance: [...] No results found for this visit on 01/20/25 (from the past 24 hours). No image results found. Mono was seen today for wound care. 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 male. Debridement Wound 11/18/24 Groin Left Performed by: Jerry Monroe Jr., MD Authorized by: Jerry Monroe Jr., MD Consent Consent obtained? written Consent given by: patient Risks discussed? procedural risks discussed Immediately prior to the procedure a time out was called and the performing provider verified the correct patient, procedure, equipment, physician support coordinator, and site/side marked as required. Debridement Details Performed by: physician Debridement type: surgical Level of debridement: subcutaneous tissue Pain control: lidocaine 2% Pain control administration type: topical Pre-debridement measurements Length (cm): 4 Width (cm): 3.7 Depth (cm): 1.5 Surface Area (cm^2): 11.62 Post-debridement measurements Length (cm): 4.1 Width (cm): 3.8 Depth (cm): 1.6 Percent debrided: 100% Surface Area (cm^2): 12.24 Area Debrided (cm^2): 12.24 Volume (cm^3): 13.05 Tissue and other material debrided: adipose, dermis, epidermis and subcutaneous tissue Devitalized tissue debrided: biofilm and slough Instrument(s) utilized: curette Bleeding: small Hemostasis obtained with: pressure Procedural pain (0-10): 2 Post-procedural pain: 1 Response to treatment: procedure was tolerated well * Adriana Devries RN - 01/20/2025 3:20 PM EDT Pt here for a follow-up wound care provider visit. Removed pt's previously ordered dressings, including 1 piece black foam. Wound assessed to ensure no remaining foam. Orders below followed for wound care today in clinic: Clean wound with 0.9 % normal saline after removal of dressings May use lidocaine 4 or 5% as needed for pain control during clinic appointments Skin barrier to sara wound skin Wound site- left groin Skin barrier and vac drape to window-pane wounds, Eakins ring or duoderm as needed Primary dressings- Silver collagen at wound base, NPWT black foam (use a piece of white foam in narrow area of depth) Secondary dressings- NPWT drape, settings of 125 mmhg continous (1 piece white foam and 1 piece black foam removed) Plan of Care: Follow up provider visit in 1 week Nurse visit Pt tolerated wound care well. Policy procedures followed for wound care performed in clinic. Instructed pt on wound care. All wound care instructions along with wrap-up education printed and handed to patient at end of visit. documented in this encounter Miscellaneous Notes * Addendum Note - Adriana Devries RN - 01/20/2025 3:20 PM EDTAddended by: ADRIANA DEVRIES on: 01/20/2025 04:44 PM Modules accepted: Orders documented in this encounter Plan of Treatment Upcoming Encounters Date Type Department Care Team (Late st Contact Info) Description 03/17/2025 10:40 AM EST Office Visit [facility] [address] [place] [phone] Jerry Monroe Jr., MD [address] [place] [phone] 03/24/2025 10:40 AM EST Office Visit 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 written Consent given by: patient Risks discussed? procedural risks discussed Immediately prior to the procedure a time out was called and the performing provider verified the correct patient, procedure, equipment, physician support coordinator, and site/side marked as required. Debridement Details Performed by: physician Debridement type: surgical Level of debridement: subcutaneous tissue Pain control: lidocaine 2% Pain control administration type: topical Pre-debridement measurements Length (cm): 4 Width (cm): 3.7 Depth (cm): 1.5 Surface Area (cm^2): 11.62 Post-debridement measurements Length (cm): 4.1 Width (cm): 3.8 Depth (cm): 1.6 Percent debrided: 100% Surface Area (cm^2): 12.24 Area Debrided (cm^2): 12.24 Volume (cm^3): 13.05 Tissue and other material debrided: adipose, dermis, epidermis and subcutaneous tissue Devitalized tissue debrided: biofilm and slough Instrument(s) utilized: curette Bleeding: small [...]
--- OUTSIDE RECORDS SUMMARY | 2025-01-23 07:40 | XMS_ITS | Encounter Summary ---
Author Organization [facility] Address [address] [place] [address] Care Team Providers Care Director Manufacturing Engineering Name Role Phone Asad Victor MD Primary Care Provider + [phone] Reason for Referral * Imaging (Routine) - Closed Specialty Diagnoses / Procedures Referred By Susan bull Referred To Contact Cardiology Diagnoses Critical limb ischemia of left lower extremity Pseudoaneurysm of left femoral artery Procedures VAS US Arterial Duplex Lower Extremity Unilateral Left Terrell Gautam MD [id number] [place] [address] Phone: tel: fax: Referral ID Status Reason Start Date Expiration Date V isits Requested Visits Authorized [id number] Closed Perform Procedure 10/19/2024 04/20/2026 1 1 Reason for Visit * Imaging (Routine) - Closed Specialty Diagnoses / Procedures Referred By Susan bull Referred To Contact Cardiology Diagnoses Critical limb ischemia of left lower extremity Pseudoaneurysm of left femoral artery Procedures VAS US Arterial Duplex Lower Extremity Unilateral Left Terrell Gautam MD [address] [facility] [address] [place] [address] Phone: tel: fax: Referral ID Status Reason Start Date Expiration Date V isits Requested Visits Authorized [id number] Closed Perform Procedure 10/19/2024 04/20/2026 1 1 Encounter Details Date Type Department Care Team (Latest Contact Info) Description 01/23/2025 8:40 AM EDT Hospital Encounter [place] [facility] [address] [facility] 5th Floor [address] [place] [address] Critical limb ischemia of left lower extremity; Pseudoaneurysm of left femoral artery Discharge Disposition: Home or Self Care Social History Tobacco Use Types Packs/Day Years Used Date Smoking Tobacco: Former Cigarettes Passive Smoke Exposure: Past Smokeless Tobacco: Never Comments:Smoked 1-2 PPD for at least 30 years. Quit 2017 Alcohol Use Standard Drinks/Week Comments Not Currently 0 (1 standard drink = 0.6 oz pur e alcohol) holidays/special occasions PHQ-2 Answer Date Recorded Patient Health Questionnaire-2 Score 0 01/31/2025 Humiliation, Afraid, Rape, and Kick questionnair e [...] by your partner or ex-partner? No 11/07/2024 AUDIT-C Answer Date Recorded Q1: How often do you have a drink containing alcohol? Never 01/23/2025 Q2: How many drinks containi ng alcohol do you have on a typical day when you are drinking? Patient does not drink Q3: How often do you have si x or more drinks on one occasion? Never 01/23/2025 Hunger Vital Sign Answer Date Recorded Within [...] drink first t dino in the morning (EYE-ACADEMIC SUCCESS COORDINATOR) to steady your nerves or to [...] as of this encounter Functional Status * AUDIT-C Score Answer Date of Assessment Author 0 01/23/2025 9:46 AM SIAT Pankaj Ferrera * Question Answer Date of Assessment Author Q1: How often do you have a drink containing alcohol? Never 01/23/2025 9:46 AM Socorro Dolan Q2: How many drinks containing alcohol do you have on a typical day when you are drinking? Patient does not drink 01/23/2025 9:46 AM Socorro Dolan Q3: How often do you have six or more drinks on one occasion? Never 01/23/2025 9:46 AM EDT Socorro Ferrera documented as of this encounter Medications at Time of Discharge aspirin 81 MG EC tablet Take 1 tablet by mouth daily. BD Pen Needle Mini Ultrafine 31G X 5 MM misc USE DIRECTED TO inject insulin THREE TIMES DAILY 08/12/2024 Continuous Glucose Manager Of Administration (Dexcom G6 air bag curer) device USE DIRECTED TO TEST BLOOD GLUCOSE LEVEL 11/19/2024 Continuous Glucose Sensor (Dexcom G6 Sensor) misc USE DIRECTED TO TEST BLOOD GLUCOSE LEVEL CHANGE SENSOR EVERY 10 DAYS 01/13/2025 Continuous Glucose Transmitter (Dexcom G6 transmitter) misc USE DIRECTED TO TEST BLOOD GLUCOSE LEVEL (CHANGE TRANSMITTER EVERY 90 DAYS) 11/15/2024 docusate sodium (Colace) 100 MG capsule Take 1 capsule by mouth daily. furosemide (Lasix) 40 MG tablet daily. 10/03/2024 insulin glargine (Lantus) 100 UNIT/ML injection Inject 28 Units under the skin nightly. insulin lispro protamine-insulin lispro (HumaLOG Mix 75-25) (75-25) 100 UNIT/ML injection vial Inject 15 Units under the skin 2 times a day with meals. 30 mL 10/19/2024 isosorbide mononitrate ER (Imdur) 60 MG 24 hr tablet .COMPLEX 12/12/2024 lisinopril 10 MG tablet Take 1 tablet by mouth daily. 03/25/2019 metoprolol tartrate (Lopressor) 100 MG tablet Take 1 tablet by mouth 2 times a day. 08/29/2016 ondansetron ODT (Zofran-ODT) 4 MG disintegrating tablet 1 tablet. 11/21/2024 oxyCODONE (Roxicodone) 5 MG immediate release tablet [...] 1 capsule by mouth every evening. 09/30/2022 Xarelto 2.5 MG tablet Take 1 tablet by mouth 2 times a day. 12/12/2024 clopidogrel (Plavix) 75 MG tablet Take 1 tablet by mouth daily. 30 tablet 3 10/20/2024 02/18/20 25 micafungin (Mycamine) injectionIndication s:Surgical wound infection,Wound infection Infuse 150 mg into a venous catheter 1 (one) time each day at the same time. 120 each 11/14/2024 02/01/20 25 fluconazole (Diflucan) 200 MG tabletIndications:A rteriovenous graft infection, initial encounter (CMS/HCC) Take 2 tablets by mouth daily. 180 tablet 1 12/20/2024 02/01/20 25 levoFLOXacin (Levaquin) 500 MG tabletIndications:A rteriovenous graft infection, initial encounter (CMS/HCC) Take 1 tablet by mouth daily. 90 tablet 1 12/20/2024 02/01/20 25 documented as of this encounter Plan of Treatment Upcoming Encounters Date Type Department Care Team (Late st Contact Info) Description 04/11/2025 3:00 PM EST Office Visit [facility] [address] [place] [address] Oscar Appiah MD [address] [facility] [address] [place] [address] 05/02/2025 2:00 PM EST Appointment [facility] [address] [place] [address] 05/02/2025 3:00 PM EST Office Visit [facility] [address] [place] [address] Terrell Gautam MD [address] [facility] [address] [place] [address] documented as of this encounter Goals Goal Patient Goal Type Associated Problems Recent Progress Patient-Stated? Author Autogenera louise Goal Care Plan Autogenerated Problem No Ekta Arnett documented as of this encounter Procedures Procedure Name Priority Date/Time Associated Diagnosis Comments VAS US ARTERIAL DUPLEX LOWER EXTREMITY UNILATERAL Routine 01/23/2025 9:46 AM EDT Critical limb ischemia of left lower extremity Pseudoaneurysm of left femoral artery documented in this encounter Results * VAS US Arterial Duplex Lower Extremity Unilateral (01/23/2025 9:46 AM EDT) Anatomical Region Laterality Modality Lower Extremities Ultrasound Impressions 01/23/2025 10:46 AM EDT Left: Abnormal study. The visualized segment of the external iliac / common femoral artery stent is patent with no areas of in-sent restenosis. A hemodynamically significant stenosis is identified in the profunda femoral artery at the bifurcation (>75%). The SFA is occluded from the bifurcation to the mid thigh. Monophasic flow reconstitution is demonstrated at the distal SFA. COMMUNICATION: Per this written report. Preliminary report signed by Ian Everett RVT on 01/23/2025 9:55 AM By electronically signing this report, I, the attending physician, attest that I have personally reviewed the images/data for the above examination(s) and I agree with the final edited report. Drafted by Ian Everett RVT on 01/23/2025 9:46 AM Final report signed by Nathaly Nowak MD on 01/23/2025 10:46 AM Narrative 01/23/2025 10:46 AM EDT CLINICAL INDICATION: S/P left external iliac and common femoral artery stent placement on 10/17/2024 TECHNIQUE: Non-invasive, real time duplex exam of the lower extremity arterial circulation with Doppler ultrasonic waveform and spectral analysis was performed. COMPARISON: SIL performed in conjunction with arterial duplex on 01/23/2025 R: 0.79 L: 0.48 FINDINGS: RIGHT: Common femoral artery: 194 cm/s; multiphasic LEFT: Arterial duplex demonstrates monophasic waveforms in the common femoral, profunda femoral, distal superficial femoral, popliteal, posterior tibial and dorsalis pedis arteries. The proximal segment of the external iliac / common femoral artery stent was not visualized due to wound vac placement. The distal segment is patent with no areas of in-stent restenosis identified. Elevated flow velocities are demonstrated in the profunda femoral artery at the bifurcation, consistent with a hemodynamically significant stenosis (>75%). The SFA is atrophic with no evident flow signal, from the bifurcation to the mid thigh. Findings consistent with chronic occlusion. Monophasic flow reconstitution is noted at the distal SFA, via collateral branches. The following flow velocities are recorded: Common femoral artery (distal stent): 126 cm/s Profunda femoral artery: 542 cm/s Superficial femoral artery at bifurcation: 0 cm/s Proximal superficial femoral artery: 0 cm/s Mid superficial femoral artery: 0 cm/s Distal superficial femoral artery: 31 cm/s Popliteal artery: 40 cm/s Tibioperoneal trunk: 52 cm/s Posterior tibial artery: 18 cm/s Dorsalis pedis artery:63 cm/s Procedure Note Natahly Nowak MD - 01/23/2025 CLINICAL INDICATION: S/P left external iliac and common femoral artery stent placement on10/17/2024 TECHNIQUE: Non-invasive, real time duplex exam of the lower extremity arterialcirculation with Doppler ultrasonic waveform and spectral analysis wasperformed. COMPARISON: SIL performed in conjunction with arterial duplex on 01/23/2025 R: 0.79 L: 0.48 FINDINGS: RIGHT: Common femoral artery: 194 cm/s; multiphasic LEFT: Arterial duplex demonstrates monophasic waveforms in the common femoral,profunda femoral, distal superficial femoral, popliteal, posterior tibialand dorsalis pedis arteries. The proximal segment of the external iliac / common femoral artery stentwas not visualized due to wound vac placement. The distal segment ispatent with no areas of in-stent restenosis identified. Elevated flow velocities are demonstrated in the profunda femoral arteryat the bifurcation, consistent with a hemodynamically significant stenosis(>75%). The SFA is atrophic with no evident flow signal, from the bifurcation tothe mid thigh. Findings consistent with chronic occlusion. Monophasic flow reconstitution is noted at the distal SFA, via collateralbranches. The following flow velocities are recorded: Common femoral artery (distal stent): 126 cm/s Profunda femoral artery: 542 cm/s Superficial femoral artery at bifurcation: 0 cm/s Proximal superficial femoral artery: 0 cm/s Mid superficial femoral artery: 0 cm/s Distal superficial femoral artery: 31 cm/s Popliteal artery: 40 cm/s Tibioperoneal trunk: 52 cm/s Posterior tibial artery: 18 cm/s Dorsalis pedis artery:63 cm/s IMPRESSION: Left: Abnormal study. The visualized segment of the external iliac /common femoral artery stent is patent with no areas of in-sentrestenosis. A hemodynamically significant stenosis is identified in the profundafemoral artery at the bifurcation (>75%). The SFA is occluded from the bifurcation to the mid thigh. Monophasic flow reconstitution is demonstrated at the distal SFA. COMMUNICATION: Per this written report. Preliminary report signed by Ian Everett RVT on 01/23/2025 9:55 AM By electronically signing this report, I, the attending physician, attestthat I have personally reviewed the images/data for the aboveexamination(s) and I agree with the final edited report. 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
--- OUTSIDE RECORDS SUMMARY | 2025-01-23 07:41 | XMS_ITS | Encounter Summary ---
Author Organization [facility] Address [address] [place] [address] Care Team Providers Care Improvement Coordinator Name Role Phone Asad Victor MD Primary Care Provider + [phone] Reason for Referral * Imaging (Routine) - Closed Specialty Diagnoses / Procedures Referred By Susan bull Referred To Contact Cardiology Diagnoses Critical limb ischemia of left lower extremity Pseudoaneurysm of left femoral artery Procedures VAS Ankle Brachial Index - Segmental Terrell Gautam MD [address] [address] Phone: tel: fax: Referral ID Status Reason Start Date Expiration Date V isits Requested Visits Authorized [id number] Closed Perform Procedure 10/19/2024 04/20/2026 1 1 Reason for Visit * Imaging (Routine) - Closed Specialty Diagnoses / Procedures Referred By Susan bull Referred To Contact Cardiology Diagnoses Critical limb ischemia of left lower extremity Pseudoaneurysm of left femoral artery Procedures VAS Ankle Brachial Index - Segmental Terrell Gautam MD [id number] [place] [address] Phone: tel: fax: Referral ID Status Reason Start Date Expiration Date V isits Requested Visits Authorized [id number] Closed Perform Procedure 10/19/2024 04/20/2026 1 1 Encounter Details Date Type Department Care Team (Latest Contact Info) Description 01/23/2025 8:41 AM EDT - 01/23/2025 11:59 PM EDT Hospital Encounter [facility] [address] 5th Floor [address] [place] [address] Critical limb ischemia of left [...] first t dino in the morning (EYE-CABLE SPLICING TECHNICIAN) to steady your nerves or to [...] one occasion? Never 01/23/2025 9:46 AM EDT Ferrera Socorro Salmon documented as of this encounter Medications at Time of Discharge aspirin 81 MG EC tablet Take 1 tablet by mouth daily. BD Pen Needle Mini Ultrafine 31G X 5 MM misc USE DIRECTED TO inject insulin THREE TIMES DAILY 08/12/2024 Continuous Glucose Filenet Architect (Dexcom G6 crab backer) device USE DIRECTED TO TEST BLOOD GLUCOSE [...] Inject 28 Units under the skin nightly. Insulin Lispro (Admelog, HumaLOG) 100 UNIT/ML injection vial Inject 12 Units under the skin. insulin lispro protamine-insulin lispro (HumaLOG Mix 75-25) [...] Description 04/11/2025 3:00 PM EST Office [address] [place] [address] Oscar Appiah MD [address] [facility] [address] [place] [address] 05/02/2025 2:00 PM EST Appointment [facility] [address] [place] [address] 05/02/2025 3:00 PM EST Office Visit [facility] [address] [place] [address] Terrell Gautam MD [address] [facility] [address] [place] [address] documented as of this encounter Goals Goal Patient Goal Type Associated Problems Recent Progress Patient-Stated? Author Autogenera louise Goal Care Plan Autogenerated Problem No Ekta Arnett documented as of this encounter Procedures Procedure Name Priority Date/Time Associated Diagnosis Comments VAS ANKLE BRACHIAL INDEX - SEGMENTAL Routine 01/23/2025 9:30 AM EDT Critical limb ischemia of left lower extremity Pseudoaneurysm of left femoral artery documented in this encounter Results * VAS Ankle Brachial Index - Segmental (01/23/2025 9:30 AM EDT) Anatomical Region Laterality Modality Vascular Ultrasound Impressions 01/23/2025 10:46 AM EDT Right: Abnormal study consistent with hemodynamically significant arterial infrainguinal disease resulting in a mild insufficiency at rest. Left: Abnormal study consistent with hemodynamically significant arterial inflow disease resulting in a moderate insufficiency at rest. COMMUNICATION: Per this written report. Preliminary report signed by THOM Santiago on 01/23/2025 9:53 AM By electronically signing this report, I, the attending physician, attest that I have personally reviewed the images/data for the above examination(s) and I agree with the final edited report. Drafted by THOM Santiago on 01/23/2025 9:49 AM Final report signed by Nathaly Nowak MD on 01/23/2025 10:46 AM Narrative 01/23/2025 10:46 AM EDT CLINICAL INDICATION: Surveillance of Angioplasty/Stent TECHNIQUE: Non-invasive, continuous wave Doppler exam with segmental pressures and spectral analysis of the lower extremity was performed. COMPARISON: LLE arterial duplex performed same day FINDINGS: Brachial Pressures: Right: 158 mmHg , Left: 189 mmHg ; There is a >20mmHg difference between the Brachial pressures. Right: Multiphasic waveforms are demonstrated at the level of the HOST HOSTESS (imaged on arterial duplex). Monophasic waveforms are demonstrated at the levels of the BONSAI CULTURIST and DPA. Segmental pressures are below normal limits with an SIL of 0.62 (118 mmHg) at the BONSAI CULTURIST and an SIL of 0.79 (149 mmHg) at the DPA. Digit pressures are 20 mmHg. Left: Monophasic waveforms are demonstrated at the levels of the HOST HOSTESS (imaged on arterial duplex) and DPA. No flow detected in the BONSAI CULTURIST. Segmental pressures are below normal limits with an SIL of 0.48 (91 mmHg) at the DPA. Digit pressures are 37 mmHg. Procedure Note Nathaly Nowak MD - 01/23/2025 CLINICAL INDICATION: Surveillance of Angioplasty/Stent TECHNIQUE: Non-invasive, continuous wave Doppler exam with segmental pressures andspectral analysis of the lower extremity was performed. COMPARISON: LLE arterial duplex performed same day FINDINGS: Brachial Pressures: Right: 158 mmHg , Left: 189 mmHg ; There is a >20mmHg difference betweenthe Brachial pressures. Right: Multiphasic waveforms are demonstrated at the level of the HOST HOSTESS(imaged on arterial duplex). Monophasic waveforms are demonstrated at thelevels of the BONSAI CULTURIST and DPA. Segmental pressures are below normal limitswith an SIL of 0.62 (118 mmHg) at the BONSAI CULTURIST and an SIL of 0.79 (149 mmHg) atthe DPA. Digit pressures are 20 mmHg. Left: Monophasic waveforms are demonstrated at the levels of the HOST HOSTESS(imaged on arterial duplex) and DPA. No flow detected in the BONSAI CULTURIST.Segmental pressures are below normal limits with an SIL of 0.48 (91 mmHg)at the DPA. Digit pressures are 37 mmHg. IMPRESSION: Right: Abnormal study consistent with hemodynamically significant arterialinfrainguinal disease resulting in a mild insufficiency at rest. Left: Abnormal study consistent with hemodynamically significant arterialinflow disease resulting in a moderate insufficiency at rest. COMMUNICATION: Per this written report. Preliminary report signed by THOM Santiago on 01/23/2025 9:53 AM By electronically signing this report, I, the attending physician, attestthat I have personally reviewed the images/data for the aboveexamination(s) and I agree with the final edited report. Drafted by THOM Santiago on 01/23/2025 9:49 AM Final report signed by Nathaly Nowak [...] documented as of this encounter Care Teams Improvement Coordinator Relationship Specialty Start Date End Date Asad Victor MD [address] [place] [address] PCP - General 10/07/22 documented as of this encounter
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
--- OUTSIDE RECORDS SUMMARY | 2025-01-23 14:30 | XMS_ITS | Encounter Summary ---
Author Organization [facility] ([place], [place], [place], [place], [place]) Address [address] [place] [address] Care Team Providers Care Construction Grip Name Role Phone Unavailable Primary Care Provider Unavailabl e Reason for Visit * Reason Comments Wound Care Nurse visit for woun d care, wound vac and dressing change Encounter Details Date Type Department Care Team (Late st Contact Info) Description 01/23/2025 3:30 PM EDT Clinical Support [facility] [address] [place] [address] Jerry Monroe Jr., MD [address] [place] [id number] Non-pressure chronic ulcer of skin of [...] Sign Reading Time Taken Comments Blood Pressure 188/69 01/23/2025 1:16 PM EDT Pulse 69 01/23/2025 1:16 PM EDT Temperature 36.3 C (97.3 F) 01/23/2025 1:16 PM EDT Respiratory Rate 18 01/23/2025 1:16 PM EDT Oxygen Saturation - - Inhaled Oxygen Concentration - - Weight - - Height - - Body Mass Index - - documented in this encounter Progress Notes * Roselia Peña - 01/23/2025 3:30 PM EDT Images from the original note were not included. Attached media from the original note were not included. 01/23/25 1337 Wound 11/18/24 Groin Left Date First Assessed/Time First Assessed: 11/18/24 1508 Wound Approximate Age at First Assessment (Weeks): 4 weeks Location: Groin Wound Location Orientation: Left Wound Image Images linked Site Assessment Granulation;Sloughing Sara-Wound Assessment Scarred Wound Length (cm) 4.4 cm Wound Width (cm) 4.5 cm Wound Surface Area (cm^2) 15.55 cm^2 Wound Depth (cm) 1.9 cm Wound Volume (cm^3) 19.698 cm^3 Margins Well-defined edges Wound Healing % 92 Drainage Description Serosanguineous Drainage Amount Moderate Odor None Wound Bed Granulation (%) 70 % Wound Bed Slough (%) 30 % Non-staged Wound Description Full thickness * Roselia Peña - 01/23/2025 3:30 PM EDT Patient seen today for non provider visit. Dressing removed as follows: Today the patient came from another appointment with his surgeon, where the removed his wound vac and dressing, all that was removed here was gauze Dressing applied per order as indicated below: Clean wound with 0.9 % normal saline [...] NPWT drape, settings of 125 mmhg continous Change dressing twice weekly in clinic Non-provider visits for dressing changes once per week, following this order for non-provider visits Follow up provider visit in 1 week No orders of the defined types were placed in this encounter. 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
--- OUTSIDE RECORDS SUMMARY | 2025-01-27 15:20 | XMS_ITS | Encounter Summary ---
Author Organization [employer] ([place], [place], [place], [place], [place]) Address [address] [place] [address] Care Team Providers Care Glaze Maker Name Role Phone Unavailable Primary Care Provider Unavailabl e Reason for Visit * Reason Comments Wound Care Encounter Details Date Type Department Care Team (Late st Contact Info) Description 01/27/2025 3:20 PM EST Office Visit [facility] [address] [place] [address] Jerry Monroe Jr., MD [address] [place] [phone] Non-pressure chronic ulcer of skin of [...] Sign Reading Time Taken Comments Blood Pressure 149/45 01/27/2025 3:34 PM EST Pulse 68 01/27/2025 3:34 PM EST Temperature 36.4 C (97.5 F) 01/27/2025 3:34 PM EST Respiratory Rate 18 01/27/2025 3:34 PM EST Oxygen Saturation - - Inhaled Oxygen Concentration - - Weight - - Height - - Body Mass Index - - documented in this encounter Patient Instructions * Patient Instructions* Neha White RN - 01/27/2025 3:20 PM EST wound care at home: Clean wound with wound cleanser (Vashe) after removal of old dressings Apply skin barrier film and cream to skin around wound, moisten gauze with Vashe cleanser and placein wound bed. Cover with silicone foam border Change dressing 1-2 times a day Signs and symptoms of infection may include: Increased redness around wound, increased drainage, and / or increased pain Drainage with odor or color changes such as green / bright yellow drainage Call wound center for any concerns INTERVIEWER INTERVIEWER documented in this encounter Progress Notes * Neha White RN - 01/27/2025 3:20 PM EST Images from the original note were not included. Attached media from the original note were not included. 01/27/25 1538 Wound 01/20/25 Ear Right Date First Assessed/Time First Assessed: 01/20/25 1539 Location: Ear Wound Location Orientation: Right Wound Image Images linked Site Assessment Dry Sara-Wound Assessment Blanchable erythema Wound Length (cm) 0 cm Wound Width (cm) 0 cm Wound Surface Area (cm^2) 0 cm^2 Wound Depth (cm) 0 cm Wound Volume (cm^3) 0 cm^3 Drainage Amount None Odor None INTERVIEWER * Neha White RN - 01/27/2025 3:20 PM EST Images from the original note were not included. Attached media from the original note were not included. 01/27/25 1543 Wound 11/18/24 Groin Left Date First Assessed/Time First Assessed: 11/18/24 1508 Wound Approximate Age at First Assessment (Weeks): 4 weeks Location: Groin Wound Location Orientation: Left Wound Image Images linked Site Assessment Granulation;Sloughing Sara-Wound Assessment Scarred Wound Length (cm) 4.4 cm Wound Width (cm) 4.5 cm Wound Surface Area (cm^2) 15.55 cm^2 Wound Depth (cm) 1.7 cm Wound Volume (cm^3) 17.624 cm^3 Margins Well-defined edges Wound Healing % 93 Drainage Description Serosanguineous Drainage Amount Moderate Odor None Wound Bed Granulation (%) 90 % Wound Bed Slough (%) 10 % Non-staged Wound Description Full thickness INTERVIEWER * Neha White RN - 01/27/2025 3:20 PM EST Pt here for a follow-up wound care provider visit. Removed pt's previously ordered dressings, including 2 pieces of black foam and 1 piece of white foam . Wound assessed to ensure no remaining foam. Orders below followed for wound care today in clinic: Clean wound with 0.9 % normal saline after removal of dressings May use lidocaine 4 or 5% as needed for pain control during clinic appointments Wound site- left groin Clean wound with Vashe Skin barrier film and Skin barrier cream to sara wound skin. Primary dressings- Vashe moistened gauze to wound bed. Secondary dressings- Silicone foam bordered dressing. Change dressing 1-2 times a day. Plan of Care: Follow up provider visit in 1 week Pt tolerated wound care well. Policy procedures followed for wound care performed in clinic. Instructed pt on wound care. All wound care instructions along with wrap-up education printed and handed to patient at end of visit. INTERVIEWER * Jerry Monroe Jr., MD - 01/27/2025 3:20 PM ESTAssociated Order(s): Debridement Subjective 01/27/25 - -patient returns to the wound care center today for management of the wound of his left lower abdomen/left groin. Wound today is improved. We no longer need the wound VAC. Debridement was medically necessary at the wound site today due to nonviable tissue present. Will use Vashe moistto dry to the wound bed. Wound without any surrounding erythema, induration odor nor periwound macer ation. 01/20/25 - -patient returns to the wound care [...] any surrounding erythema induration odor nor periwound macerati on. There seems to be less necrosis. 12/18/24 [...] upper leg. Patient was admitted to the [facility] on November 05, 2024 and dischargedon [...] line. Patient is getting daily infusions at [facility] through his PICC line for antibiotics. [...] Objective Last Recorded Vitals Blood pressure (!) 149/45, pulse 68, temperature 97.5 ??F (36.4 ??C), temperature source Tympanic, resp. rate 18. [...] No results found for this visit on 01/27/25 (from the past 24 hours). No image [...] Diabetes mellitus with skin ulcer (HCC) DOS: 01/27/2025 Patient ID: Mono Bobby is a 64 y.o. male. Debridement Wound 11/18/24 Groin Left Performed by: Jerry Monroe Jr., MD Authorized by: Jerry Monroe Jr., MD Consent Consent obtained? written Consent given by: patient Risks discussed? procedural risks discussed Immediately prior to the procedure a time out was called and the performing provider verified the correct patient, procedure, equipment, credit support specialist, and site/side marked as required. Debridement Details Performed by: physician Debridement type: surgical Level of debridement: subcutaneous tissue Pain control: lidocaine 2% Pain control administration type: topical Pre-debridement measurements Length (cm): 4.4 Width (cm): 4.5 Depth (cm): 1.7 Surface Area (cm^2): 15.55 Post-debridement measurements Length (cm): 4.5 Width (cm): 4.5 Depth (cm): 2 Percent debrided: 100% Surface Area (cm^2): 15.9 Area Debrided (cm^2): 15.9 Volume (cm^3): 21.21 Tissue and other material debrided: adipose, dermis, epidermis and subcutaneous tissue Devitalized tissue debrided: biofilm and slough Instrument(s) utilized: curette Bleeding: small Hemostasis obtained with: pressure Procedural pain (0-10): 2 Post-procedural pain: 1 Response to treatment: procedure was tolerated well INTERVIEWER documented in this encounter Plan of Treatment Upcoming Encounters Date Type Department Care Team (Late st Contact Info) Description 03/17/2025 10:40 AM EST [facility] [address] [place] [phone] Jerry Monroe Jr., MD [address] [place] [phone] 03/24/2025 10:40 AM EST Office Visit [facility] [address] [phone] Jerry Monroe Jr., MD [address] [place] [phone] documented as of this encounter Procedures Procedure Name Priority Date/Time Associated Diagnosis Comments WOUND TREATMENT Routine 01/28/2025 7:51 AM EST 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) AR DEBRIDEMENT SUBCUTANEOUS TISSUE 1ST 20 SQ CM/< Routine 01/27/2025 3:20 PM EST 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 written Consent given by: patient Risks discussed? procedural risks discussed Immediately prior to the procedure a time out was called and the performing provider verified the correct patient, procedure, equipment, credit support specialist, and site/side marked as required. Debridement Details Performed by: physician Debridement type: surgical Level of debridement: subcutaneous tissue Pain control: lidocaine 2% Pain control administration type: topical Pre-debridement measurements Length (cm): 4.4 Width (cm): 4.5 Depth (cm): 1.7 Surface Area (cm^2): 15.55 Post-debridement measurements Length (cm): 4.5 Width (cm): 4.5 Depth (cm): 2 Percent debrided: 100% Surface Area (cm^2): 15.9 Area Debrided (cm^2): 15.9 Volume (cm^3): 21.21 Tissue and other material debrided: adipose, dermis, [...]
--- OUTSIDE RECORDS SUMMARY | 2025-01-31 13:00 | XMS_ITS | Encounter Summary ---
Author Organization [facility] Address [address] [place] [address] Care Team Providers Care Philatelic Consultant Name Role Phone Asad Victor MD Primary Care Provider + [phone] Reason for Referral * Consultation (Routine) - Authorized Specialty Diagnoses / Procedures Referred By Susan bull Referred To Contact Diagnoses Arteriovenous graft infection, initial encounter (CMS/HCC) Oscar Appiah MD [address] [place] [phone] Phone: tel: fax: Referral ID Status Reason Start Date Expiration Date V isits Requested Visits Authorized [id number] Authorized 01/31/2025 08/02/2026 1 1 Reason for Visit * Consultation (Routine) - Closed Specialty Diagnoses / Procedures Referred By Susan bull Referred To Contact Diagnoses Arteriovenous graft infection, initial encounter (CMS/HCC) Oscar Appiah MD [address] [place] [phone] Phone: tel: fax: Referral ID Status Reason Start Date Expiration Date Visits Re quested Visits Authorized [id number] Closed 12/20/2024 06/21/2026 1 1 Encounter Details Date Type Department Care Team (Late st Contact Info) Description 01/31/2025 1:00 PM EST Office Visit [place] [id number] Oscar Appiah MD [address] [facility] [address] [place] [address] Arteriovenous graft infection, initial encounter (CMS/HCC) (Primary Dx) Social History Tobacco Use Types [...] drink 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 Question Answer Date of Assessment Author Little interest or pleasure in doing things Not at all 01/31/2025 12:46 PM Ashley Gutiérrez Feeling down, depressed, or hopeless Not at all 01/31/2025 12:46 PM Ashley Gutiérrez Patient Health Questionnaire -2 Score 0 01/31/2025 12:46 PM Ashley Gutiérrez documented as of this encounter Miscellaneous Notes * Progress Notes - Oscar Appiah MD - 01/31/2025 1:00 PM EST Images from the original note were not included. Infectious Diseases Outpatient Follow-Up Chief Complaint: left femoral wound follow up HPI Mono Bobby is 64 y.o. male with PMHx of COPD, CAD s/p PCI (on Xarelto) s/p pacemaker c/b left SANDIP pseudoaneurysm s/p thrombin injection 09/21/24, chronic limb ischemia s/p left femoral endarterectomy with external iliac/common femoral artery stenting 10/17/24, T2DM, HLD, hospitalization on 11/05/2024 for left groin infection came back for follow up. On 11/06/2024, pt went to the OR with vascular surgery for left groin exploration and washout. ID was consulted for antibiotic recommendations. Tissue culture growing enterobacter cloacae complex, streptococcus mitis/oralis, pastuerella stomatis. Anaerobic culture growing Staphylococcus Pseudintermedius. 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 Patient was discharged with ertanepnem and micafungin. He was supposed to come back to ID clinic in 6 weeks but did not show up. On 12/20,abx was removed and picc was removed. EKG showed normal Qtc and abx was switched to PO levo + fluc. On 01/31, today, he came back for followup. He see wound clinic doctor once weekly. The wound is getting smaller but still has drainage, requiring dressing change BID. No fever. No chills. Review of Systems Constitutional: Negative for chills and fever. Cardiovascular: Negative for chest pain. Musculoskeletal: Negative for back pain. Gastrointestinal: Negative for abdominal pain. Genitourinary: Negative for dysuria and flank pain. 14 point review of symptoms negative except as documented in the HPI. Objective Vitals: 01/31/25 1246 BP: 130/72 Pulse: 64 SpO2: 96% Physical Exam Constitutional: Appearance: Normal appearance. Cardiovascular: Rate and Rhythm: Normal rate and regular rhythm. Pulmonary: Effort: Pulmonary effort is normal. Breath sounds: Normal breath sounds. Abdominal: General: Abdomen is flat. Palpations: Abdomen is soft. Neurological: Mental Status: He is alert. Labs: Lab Results Component Value Date WBC 11.5 (A) 12/16/2024 HGB 10.90 12/16/2024 HCT 31.0 12/02/2024 MCV 92 11/13/2024 PLT 418 12/16/2024 Chemistry Lab Results Component Value Date/Time NA 135 (L) 11/13/2024 0637 K 3.9 11/13/2024 0637 CL 107 11/13/2024 0637 CO2 21 (L) 11/13/2024 0637 BUN 29 12/16/2024 0000 BUN 10 11/13/2024 0637 CREATININE 0.7 12/16/2024 0000 CREATININE 0.68 (L) 11/13/2024 0637 Lab Results Component Value Date/Time CALCIUM 8.1 (L) 11/13/2024 0637 ALKPHOS 121 12/16/2024 0000 ALKPHOS 108 11/10/2024 0031 AST 29 12/16/2024 0000 AST 33 11/10/2024 0031 ALT 26 12/16/2024 0000 ALT 25 11/10/2024 0031 BILITOT 0.2 12/16/2024 0000 BILITOT <0.2 (L) 11/10/2024 0031 Micro: BC x2 11/06: negative Wound culture 11/06: Enterobacter cloacae complex Tissue culture 11/06: Enterobacter cloacae complex, streptococcus mitis/oralis, pastuerella stomatis Anaerobic culture 11/06: Staphylococcus Pseudintermedius Fungal culture 11/06: rare colony sana parapsilosis Stool PCR 11/12: c diff neg, GI panel neg Antimicrobials: Cefepime: 11/07 - P Metronidazole: 11/07 - P Vancomycin: 11/05 - P Zosyn: 11/05 - 11/07 Cefazolin: 11/06 Imaging: none Assessment/Plan 64 y.o. male with PMHx of COPD, CAD s/p PCI (on Xarelto) s/p pacemaker c/b left SANDIP pseudoaneurysm s/p thrombin injection 09/21/24, chronic limb ischemia s/p left femoral endarterectomy with external iliac/common femoral artery stenting 10/17/24, T2DM, HLD, hospitalization on 11/05/2024 for left groininfection came back for follow up. On 11/06/2024, pt went to the OR with vascular surgery for left groin exploration and washout. ID was consulted for antibiotic recommendations. Tissue culture growing enterobacter cloacae complex, streptococcus mitis/oralis, pastuerella stomatis. Anaerobic culture growing Staphylococcus Pseudintermedius. 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 Patient was discharged with ertanepnem and micafungin. He was supposed to come back to ID clinic in 6 weeks but did not show up. On 12/20,abx was removed and picc was removed. EKG showed normal Qtc and abx was switched to PO levo + fluc. On 01/31, today, he came back for followup. He sees wound clinic doctor once weekly. The wound is getting smaller but still has drainage, requiring dressing change BID. No fever. No chills. # left groin infection, endovascular disease # s/p left femoral endarterectomy with external iliac/common femoral artery stenting Plan: - continue PO levofloxacin + PO fluconazole - follow up in 2 months - get safety lab CMP today Oscar Appiah MD MPH documented in this encounter Plan of Treatment Upcoming Encounters Date Type Department Care Team (Late st Contact Info) Description 04/11/2025 3:00 PM EST Office Visit [address] [phone] Oscar Appiah MD [address] [place] [address] [address] [place] [phone] 05/02/2025 2:00 PM EST Appointment [facility] [address] [place] [phone] 05/02/2025 3:00 PM EST Office Visit [facility] [address] [place] [address] Terrell Gautam MD [address] [facility] [address] [place] [address] Scheduled Referrals Name Type Priority Associated Diagnoses Orde r Schedule Follow Up ID Outpatient Referral Routine Arteriovenous graft infection, initial encounter ([facility]) Expected: 04/11/2025, Expires: 03/02/2026 documented as of this encounter Goals Goal Patient Goal Type Associated Problems Recent Progress Patient-Stated? Author Autogenera louise Goal Care Plan Autogenerated Problem No Ekta Arnett documented as of this encounter Results * (ABNORMAL) Comprehensive metabolic panel (01/31/2025 1:09 PM EST) Glucose, Plasma 327(H) 74 - 99 mg/dL 01/31/2025 3:47 PM EST [facility] BUN, Plasma 26(H) 8 - 23 mg/dL 01/31/2025 3:47 PM EST [facility] Creatinine, Plasma 0.80 0.70 - 1.20 mg/dL 01/31/2025 3:47 PM EST [facility] BUN/Creatinine Ratio 33 01/31/2025 3:47 PM EST [facility] Sodium, Plasma 132(L) 136 - 145 mmol/L 01/31/2025 3:47 PM EST [facility] Potassium, Plasma 4.7 3.6 - 4.9 mmol/L 01/31/2025 3:47 PM EST [facility] Chloride, Plasma 95(L) 97 - 107 mmol/L 01/31/2025 3:47 PM EST [facility] CO2, Plasma 26 22 - 29 mmol/L 01/31/2025 3:47 PM EST [facility] Anion Gap 11 6 - 16 mmol/L 01/31/2025 3:47 PM EST [facility] Total Calcium, Plasma 10.6(H) 8.9 - 10.2 mg/dL 01/31/2025 3:47 PM EST [facility] Total Protein 6.8 6.3 - 7.9 g/dL 01/31/2025 3:47 PM EST [facility] Albumin, Plasma 3.7 3.5 - 5.2 g/dL 01/31/2025 3:47 PM EST [facility] AST, Plasma 12 10 - 50 U/L 01/31/2025 3:47 PM EST [facility] ALT, Plasma 14 10 - 50 U/L 01/31/2025 3:47 PM EST [facility] Alkaline Phosphatase, Plasma 124(H) 40 - 115 U/L 01/31/2025 3:47 PM EST [facility] Total Bilirubin, Plasma 0.2 0.2 - 1.1 mg/dL 01/31/2025 3:47 PM EST [facility] eGFRcr 98.2 mL/min/1.7 3m*2 01/31/2025 3:47 PM EST [facility] Comment:Reported eGFRcr in m L/min/1.73m2 is based the CKD-EPI 2020 equation that does not use a race coefficient. Blood Venous blood specimen / Unknown Venipuncture / Unknown 01/31/2025 1:09 PM EST 01/31/2025 1:14 PM EST us Oscar Appiah MD LAB BLOOD ORDERABLES Final Result [facility] [address] [place] [address] * (ABNORMAL) CBC and differential (01/31/2025 1:09 PM EST) WBC Count 8.84 3.70 - 10.30 10*3/uL LAB HEMATOLOGY METHOD 01/31/2025 3:41 PM EST [facility] RBC Count 3.98(L) 4.60 - 6.10 10*6/uL LAB HEMATOLOGY METHOD 01/31/2025 3:41 PM EST [facility] HGB 11.2(L) 13.7 - 17.5 g/dL LAB HEMATOLOGY METHOD 01/31/2025 3:41 PM EST [facility] HCT 34.0(L) 40.0 - 51.0 % LAB HEMATOLOGY METHOD 01/31/2025 3:41 PM [facility] Platelet Count 310 155 - 369 10*3/uL LAB HEMATOLOGY METHOD 01/31/2025 3:41 PM [facility] MCV 85 79 - 98 fL LAB HEMATOLOGY METHOD 01/31/2025 3:41 PM [facility] MCH 28.1 26.0 - 32.0 pg LAB HEMATOLOGY METHOD 01/31/2025 3:41 PM [facility] MCHC 32.9 30.7 - 35.5 g/dL LAB HEMATOLOGY METHOD 01/31/2025 3:41 PM [facility] RDW 15.3(H) 11.5 - 14.5 % LAB HEMATOLOGY METHOD 01/31/2025 3:41 PM [facility] MPV 9.5 8.8 - 12.5 fL LAB HEMATOLOGY METHOD 01/31/2025 3:41 PM [facility] nRBC 0.0 <=0.0 per 100 WBCs LAB HEMATOLOGY METHOD 01/31/2025 3:41 PM [facility] Differential Type Automated LAB HEMATOLOGY METHOD 01/31/2025 3:41 PM [facility] Neutrophils % 68 % LAB HEMATOLOGY METHOD 01/31/2025 3:41 PM [facility] Lymphocytes % 20 % LAB HEMATOLOGY METHOD 01/31/2025 3:41 PM [facility] Monocytes % 9 % LAB HEMATOLOGY METHOD 01/31/2025 3:41 PM [facility] Eosinophils % 1 % LAB HEMATOLOGY METHOD 01/31/2025 3:41 PM [facility] Basophils % 1 % LAB HEMATOLOGY METHOD 01/31/2025 3:41 PM [facility] Immature Granulocytes % 1 % LAB HEMATOLOGY METHOD 01/31/2025 3:41 PM [facility] Neutrophils Absolute 6.10 1.60 - 6.10 10*3/uL LAB HEMATOLOGY METHOD 01/31/2025 3:41 PM [facility] Lymphocytes Absolute 1.72 1.20 - 3.90 10*3/uL LAB HEMATOLOGY METHOD 01/31/2025 3:41 PM [facility] Monocytes Absolute 0.82 0.30 - 0.90 10*3/uL LAB HEMATOLOGY METHOD 01/31/2025 3:41 PM EST [facility] Eosinophils Absolute 0.09 0.00 - 0.50 10*3/uL LAB HEMATOLOGY METHOD 01/31/2025 3:41 PM EST [facility] Basophils Absolute 0.04 0.00 - 0.10 10*3/uL LAB HEMATOLOGY METHOD 01/31/2025 3:41 PM EST [facility] Immature Granulocytes Absolute 0.07(H) 0.00 - 0.06 10*3/uL LAB HEMATOLOGY METHOD 01/31/2025 3:41 PM EST [facility] Blood Venous blood specimen / Unknown Venipuncture / Unknown 01/31/2025 1:09 PM EST 01/31/2025 1:14 PM EST Narrative [facility] - 01/31/2025 3:41 PM EST Therapeutic decision making should be based on absolute values, rather than percentages. us Oscar Appiah MD LAB BLOOD ORDERABLES Final Result [facility] [address] [place] [address] documented in this encounter Visit Diagnoses Diagnosis Arteriovenous graft infection, initial encounter (CMS/HCC)- Primary documented in this encounter Additional Health Concerns Active Problems Noted Date Diagnosed Date Autogenerated Problem 09/23/2024 Assessment Noted Time A fall risk assessment has been complete d for the patient 01/23/2025 9:43 AM EDT A Body Mass Index follow-up plan has been documented for the patient 01/31/2025 1:16 PM EST documented as of this encounter Care Teams Philatelic Consultant Relationship Specialty Start Date End Date Asad Victor MD [address] [place] [address] PCP - General 10/07/22 documented as of this encounter
--- OUTSIDE RECORDS SUMMARY | 2025-02-03 11:10 | XMS_ITS | Encounter Summary ---
Author Organization [employer] ([place], [place], [place], [place], [place]) Address [address] [place] [address] Care Team Providers Care Service Tech/Welder Name Role Phone Unavailable Primary Care Provider Unavailabl e Reason for Visit * Reason Comments Wound Care Encounter Details Date Type Department Care Team (Late st Contact Info) Description 02/03/2025 11:10 AM EST Office Visit [facility] [address] [place] [address] Jerry Monroe Jr., MD [address] [place] [phone] Non-pressure chronic ulcer of skin of [...] Sign Reading Time Taken Comments Blood Pressure 156/54 02/03/2025 11:09 AM EST Pulse 64 02/03/2025 11:09 AM EST Temperature 36.4 C (97.5 F) 02/03/2025 11:09 AM EST Respiratory Rate 17 02/03/2025 11:09 AM EST Oxygen Saturation - - Inhaled Oxygen Concentration - - Weight - - Height - - Body Mass Index - - documented in this encounter Patient Instructions * Patient Instructions* Melissa Celis RN - 02/03/2025 11:10 AM EST wound care at home: Clean wound with wound cleanser after removal of old dressings Apply silver collagen (cintia) Hydrofera blue ready (purple sponge) Cover with (optifoam ) silicone border Change dressing every other day. Signs and symptoms of infection may include: Increased redness around wound, increased drainage, and / or increased pain Drainage with odor or color changes such as green / bright yellow drainage Call wound center for any concerns TENING PRESS OPERATOR documented in this encounter Progress Notes * Melissa Celis RN - 02/03/2025 11:10 AM EST Images from the original note were not included. Attached media from the original note were not included. 02/03/25 1112 Wound 11/18/24 Groin Left Date First Assessed/Time First Assessed: 11/18/24 1508 Wound Approximate Age at First Assessment (Weeks): 4 weeks Location: Groin Wound Location Orientation: Left Wound Image Images linked Site Assessment Granulation;Sloughing Sara-Wound Assessment Scarred Wound Length (cm) 3.9 cm Wound Width (cm) 3.5 cm Wound Surface Area (cm^2) 10.72 cm^2 Wound Depth (cm) 0.5 cm Wound Volume (cm^3) 3.574 cm^3 Margins Well-defined edges Wound Healing % 99 Drainage Description Serosanguineous Drainage Amount Small Odor None Wound Bed Granulation (%) 90 % Wound Bed Slough (%) 10 % Non-staged Wound Description Full thickness TENING PRESS OPERATOR * Melissa Celis RN - 02/03/2025 11:10 AM EST Pt here for a follow-up wound care provider visit. Removed pt's previously ordered dressings to right groin. Orders below followed for wound care today in clinic: Clean wound(s) in clinic today with 0.9% normal saline after removal of dressings Apply topical lidocaine 4% or 5% in clinic as needed for pain control Perform the following wound care: Right groin Clean wound with vashe Apply skin protectant to sara-wound Primary dressing- silver collagen, Hydrofera blue ready Secondary dressing- silicone border foam Change dressing every other day Return to clinic for a provider visit in 1 week Clinic to follow above orders for any non-provider visits for wound care If DME ordered, DME to supply all dressings to size that fits wound/ wounds measurements Plan of Care: Follow up provider visit in 1 week Pt tolerated wound care well. Policy procedures followed for wound care performed in clinic. Instructed pt on wound care. All wound care instructions along with wrap-up education printed and handed to patient at end of visit. TENING PRESS OPERATOR * Jerry Monroe Jr., MD - 02/03/2025 11:10 AM ESTAssociated Order(s): Debridement Subjective 02/03/25 -patient returns to the wound care center today for management of the wound of his left lower abdomen/left groin. Wound today is improved. It seems to be getting smaller. It definitelyis filled in since I have last seen it. Etienne adjust our treatment plan again today. Debridement still medically necessary the wound site today due to nonviable tissue present on the surface of the wound. Wound without any surrounding erythema induration odor nor periwound maceration. 01/27/25 -patient returns to the wound care center [...] induration odor nor periwound macer ation. 01/20/25 -patient returns to the wound care [...] line. Patient is getting daily infusions at [facility] through his PICC line [...] Objective Last Recorded Vitals Blood pressure (!) 156/54, pulse 64, temperature 97.5 ??F (36.4 ??C), resp. rate 17. Physical Exam Constitutional: Appearance: Normal appearance. [...] No results found for this visit on 02/03/25 (from the past 24 hours). No image [...] Diabetes mellitus with skin ulcer (HCC) DOS: 02/03/2025 Patient ID: Mono Bobby is a 64 y.o. male. Debridement Wound 11/18/24 Groin Left Performed by: Jerry Monroe Jr., MD Authorized by: Jerry Monroe Jr., MD Consent Consent obtained? written Consent given by: patient Risks discussed? procedural risks discussed Immediately prior to the procedure a time out was called and the performing provider verified the correct patient, procedure, equipment, donor support technician, and site/side marked as required. Debridement Details Performed by: physician Debridement type: surgical Level of debridement: subcutaneous tissue Pain control: lidocaine 2% Pain control administration type: topical Pre-debridement measurements Length (cm): 3.9 Width (cm): 3.5 Depth (cm): 0.5 Surface Area (cm^2): 10.72 Post-debridement measurements Length (cm): 4 Width (cm): 3.6 Depth (cm): 0.6 Percent debrided: 100% Surface Area (cm^2): 11.31 Area Debrided (cm^2): 11.31 Volume (cm^3): 4.52 Tissue and other material debrided: adipose, dermis, epidermis and subcutaneous tissue Devitalized tissue debrided: biofilm and slough Instrument(s) utilized: curette Bleeding: small Hemostasis obtained with: pressure Procedural pain (0-10): 2 Post-procedural pain: 1 Response to treatment: procedure was tolerated well TENING PRESS OPERATOR documented in this encounter Plan of Treatment Upcoming Encounters Date Type Department Care Team (Late st Contact Info) Description 03/17/2025 10:40 AM EST Office Visit [facility] [address] [phone] Jerry Monroe Jr., MD [address] [place] [phone] 03/24/2025 10:40 AM EST Office Visit [address] [phone] Jerry Monroe Jr., MD [address] [place] [phone] documented as of this encounter Procedures Procedure Name Priority Date/Time Associated Diagnosis Comments [place] DEBRIDEMENT SUBCUTANEOUS TISSUE 1ST 20 SQ CM/< Routine 02/03/2025 11:10 AM EST 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 written Consent given by: patient Risks discussed? procedural risks discussed Immediately prior to the procedure a time out was called and the performing provider verified the correct patient, procedure, equipment, donor support technician, and site/side marked as required. Debridement Details Performed by: physician Debridement type: surgical Level of debridement: subcutaneous tissue Pain control: lidocaine 2% Pain control administration type: topical Pre-debridement measurements Length (cm): 3.9 Width (cm): 3.5 Depth (cm): 0.5 Surface Area (cm^2): 10.72 Post-debridement measurements Length (cm): 4 Width (cm): 3.6 Depth (cm): 0.6 Percent debrided: 100% Surface Area (cm^2): 11.31 Area Debrided (cm^2): 11.31 Volume (cm^3): 4.52 Tissue and other material debrided: adipose, dermis, [...]
--- OUTSIDE RECORDS SUMMARY | 2025-02-10 11:20 | XMS_ITS | Encounter Summary ---
Author Organization [employer] ([place], [place], [place], [place], [place]) Address [address] [place] [address] Care Team Providers Care Mexican Food Cook Name Role Phone Unavailable Primary Care Provider Unavailabl e Reason for Visit * Reason Comments Wound Care Encounter Details Date Type Department Care Team (Late st Contact Info) Description 02/10/2025 11:20 AM EST Office Visit [facility] [address] [place] [address] Jerry Monroe Jr., MD [address] [place] [phone] Non-pressure chronic ulcer of skin of [...] Sign Reading Time Taken Comments Blood Pressure 137/59 02/10/2025 11:08 AM EST Pulse 62 02/10/2025 11:08 AM EST Temperature 36.4 C (97.5 F) 02/10/2025 11:08 AM EST Respiratory Rate 17 02/10/2025 11:08 AM EST Oxygen Saturation - - Inhaled Oxygen Concentration - - Weight - - Height - - Body Mass Index - - documented in this encounter Patient Instructions * Patient Instructions* Melissa Celis RN - 02/10/2025 11:20 AM EST wound care at home: Clean wound with wound cleanser after removal of old dressings Apply silver collagen, hydrofera blue ready Cover with silicone border Change dressing every other day Signs and symptoms of infection may include: Increased redness around wound, increased drainage, and / or increased pain Drainage with odor or color changes such as green / bright yellow drainage Call wound center for any concerns FITTER HELPER documented in this encounter Progress Notes * Melissa Celis RN - 02/10/2025 11:20 AM EST Images from the original note were not included. Attached media from the original note were not included. 02/10/25 1114 Wound 11/18/24 Groin Left Date First Assessed/Time First Assessed: 11/18/24 1508 Wound Approximate Age at First Assessment (Weeks): 4 weeks Location: Groin Wound Location Orientation: Left Wound Image Images linked Site Assessment Granulation;Sloughing Sara-Wound Assessment Scarred Wound Length (cm) 3.8 cm Wound Width (cm) 3 cm Wound Surface Area (cm^2) 8.95 cm^2 Wound Depth (cm) 0.4 cm Wound Volume (cm^3) 2.388 cm^3 Margins Well-defined edges Wound Healing % 99 Drainage Description Serosanguineous Drainage Amount Small Odor None Wound Bed Granulation (%) 95 % Wound Bed Slough (%) 5 % Non-staged Wound Description Full thickness FITTER HELPER * Melissa Celis RN - 02/10/2025 11:20 AM EST Pt here for a follow-up wound care provider visit. Removed pt's previously ordered dressings from left groin Orders below followed for wound care today [...] to size that fits wound/ wounds measurements Pt tolerated wound care well. Policy procedures followed for wound care performed in clinic. Instructed pt on wound care. All wound care instructions along with wrap-up education printed and handed to patient at end of visit. FITTER HELPER * Jerry Monroe Jr., MD - 02/10/2025 11:20 AM ESTAssociated Order(s): Debridement Subjective 02/10/25 -patient returns to the wound care center today for management of the wound of his left lower abdomen/left groin. Today the wound is improved. Wound is measuring smaller. Debridement was medically necessary at the wound site today due to nonviable tissue present. Wound without any surrounding erythema, induration odor nor periwound maceration. We will continue with current regimen.Low threshold for using a silver nitrate regimen on some tissue as there is little bit of hypergranulation. 02/03/25 -patient returns to the wound care [...] rash. Objective Last Recorded Vitals Blood pressure 137/59, pulse 62, temperature 97.5 ??F (36.4 ??C), resp. rate [...] No results found for this visit on 02/10/25 (from the past 24 hours). No image [...] Diabetes mellitus with skin ulcer (HCC) DOS: 02/10/2025 Patient ID: Mono Bobby is a 64 y.o. male. Debridement Wound 11/18/24 Groin Left Performed by: Jerry Monroe Jr., MD Authorized by: Jerry Monroe Jr., MD Consent Consent obtained? written Consent given by: patient Risks discussed? procedural risks discussed Immediately prior to the procedure a time out was called and the performing provider verified the correct patient, procedure, equipment, field support technician, and site/side marked as required. Debridement Details Performed by: physician Debridement type: surgical Level of debridement: subcutaneous tissue Pain control: lidocaine 2% Pain control administration type: topical Pre-debridement measurements Length (cm): 3.8 Width (cm): 3 Depth (cm): 0.4 Surface Area (cm^2): 8.95 Post-debridement measurements Length (cm): 3.9 Width (cm): 3.1 Depth (cm): 0.5 Percent debrided: 100% Surface Area (cm^2): 9.5 Area Debrided (cm^2): 9.5 Volume (cm^3): 3.17 Tissue and other material debrided: adipose, dermis, epidermis and subcutaneous tissue Devitalized tissue debrided: biofilm and slough Instrument(s) utilized: curette Bleeding: small Hemostasis obtained with: pressure Procedural pain (0-10): 2 Post-procedural pain: 1 Response to treatment: procedure was tolerated well FITTER HELPER documented in this encounter Plan of Treatment Upcoming Encounters Date Type Department Care Team (Late st Contact Info) Description 03/17/2025 10:40 AM EST Office Visit [facility] [address] [place] [phone] Jerry Monroe Jr., MD [address] [place] [phone] 03/24/2025 10:40 AM EST Office Visit [facility] [address] [place] [phone] Jerry Monroe Jr., MD [address] [place] [phone] documented as of this encounter Procedures Procedure Name Priority Date/Time Associated Diagnosis Comments WOUND TREATMENT Routine 02/10/2025 5:24 PM EST 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) OR DEBRIDEMENT SUBCUTANEOUS TISSUE 1ST 20 SQ CM/< Routine 02/10/2025 11:20 AM EST 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 written Consent given by: patient Risks discussed? procedural risks discussed Immediately prior to the procedure a time out was called and the performing provider verified the correct patient, procedure, equipment, field support technician, and site/side marked as required. Debridement Details Performed by: physician Debridement type: surgical Level of debridement: subcutaneous tissue Pain control: lidocaine 2% Pain control administration type: topical Pre-debridement measurements Length (cm): 3.8 Width (cm): 3 Depth (cm): 0.4 Surface Area (cm^2): 8.95 Post-debridement measurements Length (cm): 3.9 Width (cm): 3.1 Depth (cm): 0.5 Percent debrided: 100% Surface Area (cm^2): 9.5 Area Debrided (cm^2): 9.5 Volume (cm^3): 3.17 Tissue and other material debrided: adipose, dermis, [...]
--- OUTSIDE RECORDS SUMMARY | 2025-02-17 11:00 | XMS_ITS | Encounter Summary ---
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) Procedures Wound Treatment Jerry Monroe Jr., MD [address] [place] [phone] Phone: tel: fax: Referral ID Status Reason Start Date Expiration Date V isits Requested Visits Authorized [id number] New Request 02/17/2025 02/17/2026 1 1 Reason for Visit * Reason Comments Wound Care Encounter Details Date Type Department Care Team (Late st Contact Info) Description 02/17/2025 11:00 AM EST Office Visit [facility] [address] [place] [address] Jerry Monroe Jr., MD [address] [place] [phone] Non-pressure chronic ulcer of skin of [...] Sign Reading Time Taken Comments Blood Pressure 159/65 02/17/2025 10:34 AM EST Pulse 64 02/17/2025 10:34 AM EST Temperature 36.4 C (97.6 F) 02/17/2025 10:34 AM EST Respiratory Rate 16 02/17/2025 10:34 AM EST Oxygen Saturation - - Inhaled Oxygen Concentration - - Weight - - Height - - Body Mass Index - - documented in this encounter Patient Instructions * Patient Instructions* Gloria Keys RN - 02/17/2025 11:00 AM EST wound care at home: Clean wound with vashe wound cleanser after removal of old dressings Apply skin protectant around the wound. Apply collagen and hydrofera blue ready onto the wound Cover with gauze and secure with silicone bordered foam. Change dressing every other day. Signs and symptoms of infection may include: Increased redness around wound, increased drainage, and / or increased pain Drainage with odor or color changes such as green / bright yellow drainage Call wound center for any concerns EO EQUIPMENT INSTALLER documented in this encounter Progress Notes * Gloria Keys RN - 02/17/2025 11:00 AM EST Images from the original note were not included. Attached media from the original note were not included. 02/17/25 1039 Wound 11/18/24 Groin Left Date First Assessed/Time First Assessed: 11/18/24 1508 Wound Approximate Age at First Assessment (Weeks): 4 weeks Location: Groin Wound Location Orientation: Left Wound Image Images linked Site Assessment Granulation;Sloughing Sara-Wound Assessment Scarred Wound Length (cm) 3.9 cm Wound Width (cm) 2.7 cm Wound Surface Area (cm^2) 8.27 cm^2 Wound Depth (cm) 0.3 cm Wound Volume (cm^3) 1.654 cm^3 Margins Well-defined edges Wound Healing % 99 Drainage Description Serosanguineous Drainage Amount Moderate Odor None Wound Bed Granulation (%) 95 % Wound Bed Slough (%) 5 % Non-staged Wound Description Full thickness EO EQUIPMENT INSTALLER * Gloria Keys RN - 02/17/2025 11:00 AM EST Patient in clinic for a follow up visit. Dressings removed. Orders for wound care followed as below: Clean wound(s) in clinic today with 0.9% normal saline after removal of dressings Apply topical lidocaine 4% or 5% in clinic as needed for pain control Perform the following wound care: Right groin Clean wound with vashe Apply skin protectant to sara-wound Primary dressing- silver collagen, Hydrofera blue ready Secondary dressing- silicone border foam Change dressing every other day POC: Return to clinic for a provider visit in 1 week. Instructed pt/ caregiver on wound care and dressing changes. Instructed patient on signs and symptoms of infection to include: Increased redness, blue or cold extremity, increased warmth or drainage. Drainage with odor or pus or fever or aches and chills. Patient instructed to call wound center for any concerns. If after hours or weekend go to Urgent Treatment Center or Emergency Room. Patient tolerated procedures well. EO EQUIPMENT INSTALLER * Jerry Monroe Jr., MD - 02/17/2025 11:00 AM ESTAssociated Order(s): Debridement Subjective 02/17/25 - CJA -patient returns to the wound care center today for management the wound of his leftlower abdomen/left groin. Wound today is improved. It is smaller. Debridement is medically necessary at the wound site today due to nonviable tissue present. Wound without any surrounding erythema, induration odor nor periwound maceration. Will continue on with current regimen. 02/10/25 - CJA -patient returns to the wound [...] as there is little bit of hypergranulation. 11/10/25 - CJA -patient returns to the wound [...] Will continue on with current regimen. 11/27/24 - CJA -patient returns to the [...] Objective Last Recorded Vitals Blood pressure (!) 159/65, pulse 64, temperature 97.6 ??F (36.4 ??C), resp. rate 16. Physical Exam Constitutional: Appearance: Normal appearance. [...] No results found for this visit on 02/17/25 (from the past 24 hours). No image [...] Diabetes mellitus with skin ulcer (HCC) DOS: 02/17/2025 Patient ID: Mono Bobby is a 64 y.o. male. Debridement Wound 11/18/24 Groin Left Performed by: Jerry Monroe Jr., MD Authorized by: Jerry Monroe Jr., MD Consent Consent obtained? written Consent given by: patient Risks discussed? procedural risks discussed Immediately prior to the procedure a time out was called and the performing provider verified the correct patient, procedure, equipment, client support coordinator, and site/side marked as required. Debridement Details Performed by: physician Debridement type: surgical Level of debridement: subcutaneous tissue Pain control: lidocaine 2% Pain control administration type: topical Pre-debridement measurements Length (cm): 3.9 Width (cm): 2.7 Depth (cm): 0.3 Surface Area (cm^2): 8.27 Post-debridement measurements Length (cm): 4 Width (cm): 2.8 Depth (cm): 0.4 Percent debrided: 100% Surface Area (cm^2): 8.8 Area Debrided (cm^2): 8.8 Volume (cm^3): 2.35 Tissue and other material debrided: adipose, dermis, epidermis and subcutaneous tissue Devitalized tissue debrided: biofilm and slough Instrument(s) utilized: curette Bleeding: small Hemostasis obtained with: pressure Procedural pain (0-10): 2 Post-procedural pain: 1 Response to treatment: procedure was tolerated well EO EQUIPMENT INSTALLER documented in this encounter Plan of Treatment Upcoming Encounters Date Type Department Care Team (Late st Contact Info) Description 03/17/2025 10:40 AM EST Office Visit [facility] [address] [place] [phone] Jerry Monroe Jr., MD [address] [place] [phone] 03/24/2025 10:40 AM EST Office Visit [facility] [address] [place] [address] Jerry Monroe Jr., MD [address] [place] [phone] documented as of this encounter Procedures Procedure Name Priority Date/Time Associated Diagnosis Comments WOUND TREATMENT Routine 02/17/2025 4:05 PM EST 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) AL DEBRIDEMENT SUBCUTANEOUS TISSUE 1ST 20 SQ CM/< Routine 02/17/2025 11:00 AM EST 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 written Consent given by: patient Risks discussed? procedural risks discussed Immediately prior to the procedure a time out was called and the performing provider verified the correct patient, procedure, equipment, client support coordinator, and site/side marked as required. Debridement Details Performed by: physician Debridement type: surgical Level of debridement: subcutaneous tissue Pain control: lidocaine 2% Pain control administration type: topical Pre-debridement measurements Length (cm): 3.9 Width (cm): 2.7 Depth (cm): 0.3 Surface Area (cm^2): 8.27 Post-debridement measurements Length (cm): 4 Width (cm): 2.8 Depth (cm): 0.4 Percent debrided: 100% Surface Area (cm^2): 8.8 Area Debrided (cm^2): 8.8 Volume (cm^3): 2.35 Tissue and other material debrided: adipose, dermis, [...]
--- OUTSIDE RECORDS SUMMARY | 2025-02-24 11:00 | XMS_ITS | Encounter Summary ---
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..] Sign Reading Time Taken Comments Blood Pressure 167/58 02/24/2025 12:33 PM EST Pulse 67 02/24/2025 12:33 PM EST Temperature 36.5 C (97.7 F) 02/24/2025 12:33 PM EST Respiratory Rate 16 02/24/2025 12:33 PM EST Oxygen Saturation - - Inhaled Oxygen Concentration - - Weight - - Height - - Body Mass Index - - documented in this encounter Patient Instructions * Patient Instructions* Kori Peña RN - 02/24/2025 11:00 AM EST Perform the following wound care: Right groin Clean wound with vashe Apply skin protectant to sara-wound Primary dressing- silver collagen, Hydrofera blue ready Secondary dressing- silicone border foam Change dressing every other day LE TOE SNIPPING MACHINE OPERATOR documented in this encounter Progress Notes * Kori Peña RN - 02/24/2025 11:00 AM EST Images from the original note were not included. Attached media from the original note were not included. 02/24/25 1236 Wound 01/20/25 Ear Right Date First Assessed/Time First Assessed: 01/20/25 1539 Location: Ear Wound Location Orientation: Right Wound Image Images linked Site Assessment Dry Sara-Wound Assessment Blanchable erythema LE TOE SNIPPING MACHINE OPERATOR * Kori Peña RN - 02/24/2025 11:00 AM EST Images from the original note were not included. Attached media from the original note were not included. 02/24/25 1237 Wound 11/18/24 Groin Left Date First Assessed/Time First Assessed: 11/18/24 1508 Wound Approximate Age at First Assessment (Weeks): 4 weeks Location: Groin Wound Location Orientation: Left Wound Image Images linked Site Assessment Granulation Sara-Wound Assessment Scarred Wound Length (cm) 2.5 cm Wound Width (cm) 1.8 cm Wound Surface Area (cm^2) 3.53 cm^2 Wound Depth (cm) 0.1 cm Wound Volume (cm^3) 0.236 cm^3 Margins Well-defined edges Wound Healing % 100 Drainage Description Serosanguineous Drainage Amount Moderate Odor None Wound Bed Granulation (%) 100 % Non-staged Wound Description Full thickness LE TOE SNIPPING MACHINE OPERATOR * Kori Peña RN - 02/24/2025 11:00 AM EST Orders followed as below Clean wound(s) in clinic today with 0.9% normal saline after removal of dressings Apply topical lidocaine 4% or 5% in clinic as needed for pain control Perform the following wound care: Right groin Clean wound with vashe Apply skin protectant to sara-wound Primary dressing- silver collagen, Hydrofera blue ready Secondary dressing- silicone border foam Change dressing every other day Patient tolerated procedures well POC: Return to clinic for a provider visit in 1 week Clinic to follow above orders for any non-provider visits for wound care If DME ordered, DME to supply all dressings to size that fits wound/ wounds measurements Education: Patient educated on signs/symptoms of infection and to continue current wound dressings at home LE TOE SNIPPING MACHINE OPERATOR * Jerry Monroe Jr., MD - 02/24/2025 11:00 AM ESTAssociated Order(s): Debridement Subjective 02/24/25 - CJA -patient returns to the wound care center today for management of the wound of his left lower abdomen/left groin. Wound today is improved and measuring smaller. Debridement was medically necessary at the wound site today due to nonviable tissue present. Wound without any surrounding erythema, induration odor nor periwound maceration. Will continue on with current regimen. 02/17/25 - A -patient returns to the wound care center [...] line. Patient is getting daily infusions at [facility] through his PICC line for [...] Objective Last Recorded Vitals Blood pressure (!) 167/58, pulse 67, temperature 97.7 ??F (36.5 ??C), temperature source Tympanic, resp. rate 16. Physical Exam Constitutional: Appearance: [...] No results found for this visit on 02/24/25 (from the past 24 hours). No image [...] Diabetes mellitus with skin ulcer (HCC) DOS: 02/24/2025 Patient ID: Mono Bobby is a 64 y.o. male. Debridement Wound 11/18/24 Groin Left Performed by: Jerry Monroe Jr., MD Authorized by: Jerry Monroe Jr., MD Consent Consent obtained? written Consent given by: patient Risks discussed? procedural risks discussed Immediately prior to the procedure a time out was called and the performing provider verified the correct patient, procedure, equipment, senior administrator support, and site/side marked as required. Debridement Details Performed by: physician Debridement type: surgical Level of debridement: subcutaneous tissue Pain control: lidocaine 2% Pain control administration type: topical Pre-debridement measurements Length (cm): 2.5 Width (cm): 1.8 Depth (cm): 0.1 Surface Area (cm^2): 3.53 Post-debridement measurements Length (cm): 2.6 Width (cm): 1.9 Depth (cm): 0.3 Percent debrided: 100% Surface Area (cm^2): 3.88 Area Debrided (cm^2): 3.88 Volume (cm^3): 0.78 Tissue and other material debrided: adipose, dermis, epidermis and subcutaneous tissue Devitalized tissue debrided: biofilm and slough Instrument(s) utilized: curette Bleeding: small Hemostasis obtained with: pressure Procedural pain (0-10): 2 Post-procedural pain: 1 Response to treatment: procedure was tolerated well LE TOE SNIPPING MACHINE OPERATOR documented in this encounter Plan of Treatment Upcoming Encounters Date Type Department Care Team (Late st Contact Info) Description 03/17/2025 10:40 AM EST Office Visit [facility] [address] [phone] Jerry Monroe Jr., MD [address] [place] [phone] 03/24/2025 10:40 AM EST Office Visit [facility] [address] [phone] Jerry Monroe Jr., MD [address] [place] [phone] documented as of this encounter Procedures Procedure Name Priority Date/Time Associated Diagnosis Comments WOUND TREATMENT Routine 02/24/2025 5:18 PM EST 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) [place] DEBRIDEMENT SUBCUTANEOUS TISSUE 1ST 20 SQ CM/< Routine 02/24/2025 11:00 AM EST 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 written Consent given by: patient Risks discussed? procedural risks discussed Immediately prior to the procedure a time out was called and the performing provider verified the correct patient, procedure, equipment, senior administrator support, and site/side marked as required. Debridement Details Performed by: physician Debridement type: surgical Level of debridement: subcutaneous tissue Pain control: lidocaine 2% Pain control administration type: topical Pre-debridement measurements Length (cm): 2.5 Width (cm): 1.8 Depth (cm): 0.1 Surface Area (cm^2): 3.53 Post-debridement measurements Length (cm): 2.6 Width (cm): 1.9 Depth (cm): 0.3 Percent debrided: 100% Surface Area (cm^2): 3.88 Area Debrided (cm^2): 3.88 Volume (cm^3): 0.78 Tissue and other material debrided: adipose, dermis, [...]
--- OUTSIDE RECORDS SUMMARY | 2025-03-03 10:50 | XMS_ITS | Encounter Summary ---
Author Organization [facility] ([place], [place], [place], [place], [place]) Address [address] [place] [address] Care Team Providers Care Pattern And Chain Maker Name Role Phone Unavailable Primary Care Provider Unavailabl e Reason for Visit * Reason Comments Wound Care Encounter Details Date Type Department Care Team (Late st Contact Info) Description 03/03/2025 10:50 AM EST Office Visit [facility] [address] [place] [phone] Jerry Monroe Jr., MD [address] [place] [phone] Non-pressure chronic ulcer of skin of [...] Sign Reading Time Taken Comments Blood Pressure 150/64 03/03/2025 11:14 AM EST Pulse 60 03/03/2025 11:14 AM EST Temperature 36.3 C (97.4 F) 03/03/2025 11:14 AM EST Respiratory Rate 17 03/03/2025 11:14 AM EST Oxygen Saturation - - Inhaled Oxygen Concentration - - Weight - - Height - - Body Mass Index - - documented in this encounter Patient Instructions * Patient Instructions* Melissa Celis RN - 03/03/2025 10:50 AM EST wound care at home: Clean wound with wound cleanser after removal of old dressings Apply silver collagen and hydrofera blue Cover with border foam Change dressing every other day Signs and symptoms of infection may include: Increased redness around wound, increased drainage, and / or increased pain Drainage with odor or color changes such as green / bright yellow drainage Call wound center for any concerns L RECREATIONAL FACILITIES MANAGER L RECREATIONAL FACILITIES MANAGER documented in this encounter Progress Notes * Melissa Celis RN - 03/03/2025 10:50 AM EST Images from the original note were not included. Attached media from the original note were not included. 03/03/25 1117 Wound 11/18/24 Groin Left Date First Assessed/Time First Assessed: 11/18/24 1508 Wound Approximate Age at First Assessment (Weeks): 4 weeks Location: Groin Wound Location Orientation: Left Wound Image Images linked Site Assessment Granulation Sara-Wound Assessment Scarred Wound Length (cm) 2 cm Wound Width (cm) 1.3 cm Wound Surface Area (cm^2) 2.04 cm^2 Wound Depth (cm) 0.2 cm Wound Volume (cm^3) 0.272 cm^3 Margins Well-defined edges Wound Healing % 100 Drainage Description Serosanguineous Drainage Amount Small Odor None Wound Bed Granulation (%) 100 % Non-staged Wound Description Full thickness L RECREATIONAL FACILITIES MANAGER * Melissa Celis RN - 03/03/2025 10:50 AM EST Pt here for a follow-up wound care provider visit. Removed pt's previously ordered dressings. Orders below followed for wound care today in clinic: Comments: Clean wound(s) in clinic today with 0.9% normal saline after removal of dressings Apply topical lidocaine 4% or 5% in clinic as needed for pain control Perform the following wound care: left groin Clean wound with vashe Apply skin protectant to sara-wound Primary dressing- silver collagen, Hydrofera blue ready Secondary dressing- silicone border foam Change dressing every other day Return to clinic for a provider visit in 1 week Clinic to follow above orders for any non-provider visits for wound care If DME ordered, DME to supply all dressings to size that fits wound/ wounds measurement. Pt tolerated wound care well. Policy procedures followed for wound care performed in clinic. Instructed pt on wound care. All wound care instructions along with wrap-up education printed and handed to patient at end of visit. L RECREATIONAL FACILITIES MANAGER * Jerry Monroe Jr., MD - 03/03/2025 10:50 AM ESTAssociated Order(s): Debridement Subjective 03/03/25 -patient returns to the wound care center today for management the wound of his left lower abdomen/left groin. Wound today is smaller. Debridement was medically necessary at the wound site today due to nonviable tissue present. Wound without any surrounding erythema induration odor nor periwound maceration. 02/24/25 -patient returns to the wound care center today for management of the wound of his left lower abdomen/left groin. Wound today is improved and measuring smaller. Debridement was medically necessary at the wound site today due to nonviable tissue present. Wound without any surrounding erythema, induration odor nor periwound maceration. Will continue on with current regimen. 02/17/25 -patient returns to the wound care center today for management the wound of his leftlower abdomen/left groin. Wound today is improved. It is smaller. Debridement is medically necessary at the wound site today due to nonviable tissue present. Wound without any surrounding erythema, induration odor nor periwound maceration. Will continue on with current regimen. 02/10/25 -patient returns to the wound care [...] periwoundmaceration. Will continue on with current regimen. 9/3/25 - CJA -patient returns to the wound [...] upper leg. Patient was admitted to the [facility] on November 05, 2024 and dischargedon [...] Objective Last Recorded Vitals Blood pressure (!) 150/64, pulse 60, temperature 97.4 ??F (36.3 ??C), resp. rate 17. Physical Exam Constitutional: [...] No results found for this visit on 03/03/25 (from the past 24 hours). No image [...] Diabetes mellitus with skin ulcer (HCC) DOS: 03/03/2025 Patient ID: Mono Bobby is a 64 y.o. male. Debridement Wound 11/18/24 Groin Left Performed by: Jerry Monroe Jr., MD Authorized by: Jerry Monroe Jr., MD Consent Consent obtained? written Consent given by: patient Risks discussed? procedural risks discussed Immediately prior to the procedure a time out was called and the performing provider verified the correct patient, procedure, equipment, retail support associate, and site/side marked as required. Debridement Details Performed by: physician Debridement type: surgical Level of debridement: subcutaneous tissue Pain control: lidocaine 2% Pain control administration type: topical Pre-debridement measurements Length (cm): 2 Width (cm): 1.3 Depth (cm): 0.2 Surface Area (cm^2): 2.04 Post-debridement measurements Length (cm): 2.1 Width (cm): 1.4 Depth (cm): 0.3 Percent debrided: 100% Surface Area (cm^2): 2.31 Area Debrided (cm^2): 2.31 Volume (cm^3): 0.46 Tissue and other material debrided: adipose, dermis, epidermis, hypergranulation and subcutaneous tissue Devitalized tissue debrided: biofilm and slough Instrument(s) utilized: curette Bleeding: small Hemostasis obtained with: pressure and silver nitrate Procedural pain (0-10): 2 Post-procedural pain: 1 Response to treatment: procedure was tolerated well L RECREATIONAL FACILITIES MANAGER documented in this encounter Plan of Treatment Upcoming Encounters Date Type Department Care Team (Late st Contact Info) Description 03/17/2025 10:40 AM EST Office Visit [facility] [address] [place] [phone] Jerry Monroe Jr., MD [address] [place] [phone] 03/24/2025 10:40 AM EST Office Visit [facility] [address] [place] [phone] Jerry Monroe Jr., MD [address] [place] [phone] documented as of this encounter Procedures Procedure Name Priority Date/Time Associated Diagnosis Comments [place] DEBRIDEMENT SUBCUTANEOUS TISSUE 1ST 20 SQ CM/< Routine 03/03/2025 10:50 AM EST 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 written Consent given by: patient Risks discussed? procedural risks discussed Immediately prior to the procedure a time out was called and the performing provider verified the correct patient, procedure, equipment, retail support associate, and site/side marked as required. Debridement Details Performed by: physician Debridement type: surgical Level of debridement: subcutaneous tissue Pain control: lidocaine 2% Pain control administration type: topical Pre-debridement measurements Length (cm): 2 Width (cm): 1.3 Depth (cm): 0.2 Surface Area (cm^2): 2.04 Post-debridement measurements Length (cm): 2.1 Width (cm): 1.4 Depth (cm): 0.3 Percent debrided: 100% Surface Area (cm^2): 2.31 Area Debrided (cm^2): 2.31 Volume (cm^3): 0.46 Tissue and other material debrided: adipose, dermis, epidermis, hypergranulation and subcutaneous tissue Devitalized tissue debrided: biofilm and slough Instrument(s) utilized: curette Bleeding: small Hemostasis obtained with: pressure and silver nitrate Procedural pain (0-10): 2 Post-procedural pain: 1 [...]
--- OUTSIDE RECORDS SUMMARY | 2025-03-10 11:10 | XMS_ITS | Encounter Summary ---
Author Organization [employer] ([place], [place], [place], [place], [place]) Address [address] [place] [address] Care Team Providers Care Honey Processor Name Role Phone Unavailable Primary Care Provider Unavailabl e Reason for Visit * Reason Comments Wound Care Encounter Details Date Type Department Care Team (Late st Contact Info) Description 03/10/2025 11:10 AM EST Office Visit 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); Localized tissue (HCC); Other specified local infections of the skin and subcutaneous tissue; Diabetes mellitus with skin ulcer (HCC); 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) Social History Tobacco Use Types Packs/Day [...] Sign Reading Time Taken Comments Blood Pressure 176/100 03/10/2025 11:03 AM EST Pulse 77 03/10/2025 11:03 AM EST Temperature 36.2 C (97.2 F) 03/10/2025 11:03 AM EST Respiratory Rate 16 03/10/2025 11:03 AM EST Oxygen Saturation - - Inhaled Oxygen Concentration - - Weight - - Height - - Body Mass Index - - documented in this encounter Patient Instructions * Patient Instructions* Adriana Ricks RN - 03/10/2025 11:10 AM EST wound care at home: Clean wound with wound cleanser after removal of old dressings To groin wound: Apply Hydrofera blue, cover with silicone border To right arm wound: Apply Mupirocin ointment, cover with silicone border Change dressing twice a week Signs and symptoms of infection may include: Increased redness around wound, increased drainage, and / or increased pain Drainage with odor or color changes such as green / bright yellow drainage Call wound center for any concerns ERN VAULT CLERK ERN VAULT CLERK documented in this encounter Progress Notes * Adriana Ricks RN - 03/10/2025 11:10 AM EST Attached media from the original note were not included. 03/10/25 1114 Wound 03/10/25 Traumatic Arm lower Anterior;Distal;Right Date First Assessed/Time First Assessed: 03/10/25 1114 Primary Wound Type: Traumatic Location: Arm lower Wound Location Orientation: Anterior;Distal;Right Wound Image Images linked Site Assessment Granulation Wound Length (cm) 2.7 cm Wound Width (cm) 1 cm Wound Surface Area (cm^2) 2.12 cm^2 Wound Depth (cm) 0.1 cm Wound Volume (cm^3) 0.141 cm^3 Margins Well-defined edges Drainage Description Serosanguineous Drainage Amount Small Odor None Wound Bed Granulation (%) 100 % Non-staged Wound Description Full thickness ERN VAULT CLERK * Adriana Ricks RN - 03/10/2025 11:10 AM EST Images from the original note were not included. Attached media from the original note were not included. 03/10/25 1116 Wound 11/18/24 Groin Left Date First Assessed/Time First Assessed: 11/18/24 1508 Wound Approximate Age at First Assessment (Weeks): 4 weeks Location: Groin Wound Location Orientation: Left Wound Image Images linked Site Assessment Granulation;Epithelialization;Sloughing Sara-Wound Assessment Scarred Wound Length (cm) 1 cm Wound Width (cm) 0.7 cm Wound Surface Area (cm^2) 0.55 cm^2 Wound Depth (cm) 0.1 cm Wound Volume (cm^3) 0.037 cm^3 Margins Well-defined edges Wound Healing % 100 Drainage Description Serosanguineous Drainage Amount Moderate Odor None Wound Bed Granulation (%) 70 % Wound Bed Epithelium (%) 20 % Wound Bed Slough (%) 10 % Non-staged Wound Description Full thickness ERN VAULT CLERK * Adriana Ricks RN - 03/10/2025 11:10 AM EST Pt here for a follow-up wound care provider visit. Removed pt's previously ordered dressings. Orders below followed for wound care today in clinic: Clean wound(s) in clinic today with 0.9% normal saline after removal of dressings Apply topical lidocaine 4% or 5% in clinic as needed for pain control To left groin: Clean wound with Vashe Apply skin protectant to sara-wound Primary dressing- silver collagen, Hydrofera blue ready Secondary dressing- silicone border foam Change dressing twice a week To right arm: Primary dressing- Mupirocin ointment Secondary dressing- silicone border foam Change dressing twice a week Plan of Care: Follow up provider visit in 1 week Pt tolerated wound care well. Policy procedures followed for wound care performed in clinic. Instructed pt on wound care. All wound care instructions along with wrap-up education printed and handed to patient at end of visit. ERN VAULT CLERK * Jerry Monroe Jr., MD - 03/10/2025 11:10 AM ESTAssociated Order(s): Debridement Subjective 03/10/25 - CJA -patient returns to the wound care center today for management of the wound of his left lower abdomen/left groin. Wound today seems to be getting smaller. Debridement still medically necessary at the wound site today due to nonviable tissue present. Wound without any surrounding erythema induration odor nor periwound maceration. Patient had a fall and has a full-thickness wound of h is wrist. Will treat this wound with mupirocin, contact layer and rolled gauze. Wound does not appear to be infected and has no surrounding erythema induration nor odor. Fall occurred a few days ago. 03/03/25 -patient returns to the wound care [...] to nonviable tissue present on the surface ofthe wound. Wound without any surrounding erythema induration odor nor periwound maceration. Continue with current treatment as it is working. 11/18/24 -this is a gentleman who comes in today with 2 wounds of his left groin and left upper leg. Patient was admitted to the [facility] on November 05, 2024 and [...] Objective Last Recorded Vitals Blood pressure (!) 176/100, pulse 77, temperature 97.2 ??F (36.2 ??C), resp. rate 16. Physical Exam Constitutional: [...] No results found for this visit on 03/10/25 (from the past 24 hours). No image results found. Mono was seen today for wound care. 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 male. Debridement Wound 11/18/24 Groin Left Performed by: Jerry Monroe Jr., MD Authorized by: Jerry Monroe Jr., MD Consent Consent obtained? written Consent given by: patient Risks discussed? procedural risks discussed Immediately prior to the procedure a time out was called and the performing provider verified the correct patient, procedure, equipment, customer support assistant, and site/side marked as required. Debridement Details Performed by: physician Debridement type: surgical Level of debridement: subcutaneous tissue Pain control: lidocaine 2% Pain control administration type: topical Pre-debridement measurements Length (cm): 1 Width (cm): 0.7 Depth (cm): 0.1 Surface Area (cm^2): 0.55 Post-debridement measurements Length (cm): 1.1 Width (cm): 0.8 Depth (cm): 0.2 Percent debrided: 100% Surface Area (cm^2): 0.69 Area Debrided (cm^2): 0.69 Volume (cm^3): 0.09 Tissue and other material debrided: adipose, dermis, epidermis and subcutaneous tissue Devitalized tissue debrided: biofilm and slough Instrument(s) utilized: curette Bleeding: small Hemostasis obtained with: pressure Procedural pain (0-10): 2 Post-procedural pain: 1 Response to treatment: procedure was tolerated well ERN VAULT CLERK documented in this encounter Plan of Treatment Upcoming Encounters Date Type Department Care Team (Late st Contact Info) Description 03/17/2025 10:40 AM EST Office Visit [facility] [address] [place] [address] Jerry Monroe Jr., MD [address] [place] [phone] 03/24/2025 10:40 AM EST Office Visit 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 written Consent given by: patient Risks discussed? procedural risks discussed Immediately prior to the procedure a time out was called and the performing provider verified the correct patient, procedure, equipment, customer support assistant, and site/side marked as required. Debridement Details Performed by: physician Debridement type: surgical Level of debridement: subcutaneous tissue Pain control: lidocaine 2% Pain control administration type: topical Pre-debridement measurements Length (cm): 1 Width (cm): 0.7 Depth (cm): 0.1 Surface Area (cm^2): 0.55 Post-debridement measurements Length (cm): 1.1 Width (cm): 0.8 Depth (cm): 0.2 Percent debrided: 100% Surface Area (cm^2): 0.69 Area Debrided (cm^2): 0.69 Volume (cm^3): 0.09 Tissue and other material debrided: adipose, dermis, [...] 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) documented in this encounter
[2025-03-12 20:43] LABS: Hematocrit 31.0 % (42.0-52.0); Hemoglobin 10.3 g/dL (14.1-18.0); Immature Granulocytes % 0.4 %; Mean Corpuscular HGB Conc 33.2 g/dL (31.8-35.4); Mean Corpuscular Hemoglobin 30.2 pg (27.0-31.2); Mean Corpuscular Volume 90.9 fl (80-94); Nucleated Red Blood Cells % 0 %; Platelet Count 344 K/mm3 (142-424); Red Blood Count 3.41 M/mm3 (4.60-6.20); Red Cell Distribution Width-SD 50.9 fL; White Blood Count 7.6 K/mm3 (4.8-10.8)
[2025-03-12 21:02] LABS: Hemoglobin A1C 10.6 % (4.0-6.0)
[2025-03-12 21:08] LABS: Alanine Aminotransferase 18 U/L (12-78); Albumin Level 3.5 g/dl (3.5-5.0); Albumin/Globulin Ratio 1.3 (1.1-1.8); Alkaline Phosphatase 129 U/L (38-126); Amylase 41 U/L (30-110); Anion Gap 9.6 mEq/L (5-15); Aspartate Amino Transferase 19 U/L (17-59); Bilirubin,Total 0.5 mg/dl (0.2-1.3); Blood Urea Nitrogen 16 mg/dl (9-20); Carbon Dioxide 27 mmol/L (22.0-30.0); Chloride 100 mmol/L (98-107); Creatinine,Serum 1.00 mg/dl (0.66-1.25); Estimated Glomerular Filt Rate 75 ml/min (>60); GFR (African American) 90 ML/MIN (>60); Globulin 2.7 g/dL (1.3-3.2); Lipase 41 U/L (23-300); Potassium 3.6 mmoL/L (3.5-5.1); Sodium 133 mmol/L (136-145); Total Protein,Serum 6.2 g/dl (6.3-8.2)
[2025-03-12 21:19] LABS: Calcium 9.1 mg/dl (8.4-10.2); Glucose 191 mg/dl (74-100)
--- OUTSIDE RECORDS SUMMARY | 2025-03-13 10:50 | XMS_ITS | Encounter Summary ---
Author Organization [employer] ([place], [place], [place], [place], [place]) Address [address] [place] [address] Care Team Providers Care Kettleman Name Role Phone Unavailable Primary Care Provider Unavailabl e Encounter Details Date Type Department Care Team (Latest Contact Info) Description 02/17/2025 Travel Social History Tobacco Use Types Packs/Day [...] Description 03/17/2025 10:40 AM EST Office Visit [facility] [address] [place] [phone] Jerry Monroe Jr., MD [address] [place] [phone] 03/24/2025 10:40 AM EST Office Visit [facility] [address] [place] [address] Jerry Monroe Jr., MD [address] [place] [phone] documented as of this encounter Visit Diagnoses Not on filedocumented in this encounter
--- OUTSIDE RECORDS SUMMARY | 2025-03-13 10:52 | XMS_ITS | Encounter Summary ---
Author Organization [facility] Address [address] [place] [address] Care Team Providers Care Coat Check Attendant Name Role Phone Asad Victor MD Primary Care Provider + [phone] Encounter Details Date Type Department Care Team (Latest Contact Info) Description 01/31/2025 Travel Social History Tobacco Use Types Packs/Day [...] drink first t dino in the morning (EYE-TIGER MACHINE OPERATOR) to steady your nerves or [...] as of this encounter Functional Status * Over the [...] Ashley Gutiérrez documented as of this encounter Plan of Treatment Upcoming Encounters Date Type Department Care Team (Late st Contact Info) Description 04/11/2025 3:00 PM EST Office Visit [facility] [address] [place] [address] Oscar Appiah MD [address] [facility] [address] [place] [address] 05/02/2025 2:00 PM EST Appointment [facility] [address] [facility] [address] [place] [address] 05/02/2025 3:00 PM EST Office Visit [facility] [address] [place] [address] Terrell Gautam MD [address] [facility] [address] [place] [address] documented as of this encounter [...] documented as of this encounter Care Teams Coat Check Attendant Relationship Specialty Start Date End Date Asad Victor MD [address] [place] [address] PCP - General 10/07/22 documented as of this encounter
--- OUTSIDE RECORDS SUMMARY | 2025-03-13 10:53 | XMS_ITS | Clinical Summary ---
Author Organization [facility] Address [address] [place] [address] Care Team Providers Care Sock Lining Examiner Name Role Phone Asad Victor MD Primary Care Provider + [phone] Allergies No known active allergies Medications lisinopril [...] Take 1 capsule by mouth daily. Active rivaroxaban (Xarelto) 20 MG tablet Take 1 tablet by mouth 1 time each day with dinner. Take with food. 30 tablet 3 10/20/19 25 Active rOPINIRole (Requip) 1 MG tablet Take 2 tablets by mouth 2 times a day. 10/20/19 25 Active insulin lispro protamine-insulin lispro (HumaLOG Mix 75-25) (75-25) 100 UNIT/ML injection vial Inject 15 Units under the skin 2 times a day with meals. 30 mL 10/20/19 25 Active aspirin 81 MG EC tablet Take 1 tablet by mouth daily. Active oxyCODONE (Roxicodone) 5 MG immediate release tablet Take 1 tablet by mouth every 6 hours as needed for severe pain. 18 tablet 11/15/19 25 Active Continuous Glucose Soda Room Operator (Dexcom G6 electroplater helper) device USE DIRECTED TO TEST BLOOD GLUCOSE LEVEL 11/20/19 25 Active Continuous Glucose Sensor (Dexcom G6 Sensor) misc USE DIRECTED TO TEST BLOOD GLUCOSE LEVEL CHANGE SENSOR EVERY 10 DAYS 01/14/20 25 Active Continuous Glucose Transmitter (Dexcom G6 transmitter) misc USE DIRECTED TO TEST BLOOD GLUCOSE LEVEL (CHANGE TRANSMITTER EVERY 90 DAYS) 11/16/19 25 Active furosemide (Lasix) 40 MG tablet daily. 10/04/19 25 Active Insulin Lispro (Admelog, HumaLOG) 100 UNIT/ML injection vial Inject 12 Units under the skin. Active BD Pen Needle Mini Ultrafine 31G X 5 MM misc USE DIRECTED TO inject insulin THREE TIMES DAILY 08/13/19 25 Active isosorbide mononitrate ER (Imdur) 60 MG 24 hr tablet .COMPLEX 12/13/19 25 Active ondansetron ODT (Zofran-ODT) 4 MG disintegrating tablet 1 tablet. 11/22/19 25 Active Xarelto 2.5 MG tablet Take 1 tablet by mouth 2 times a day. 12/13/19 25 Active fluconazole (Diflucan) 200 MG tabletIndications: Arteriovenous graft infection, initial encounter (CMS/[facility]) Take 2 tablets by mouth daily. 180 tablet 1 02/01/20 25 Active levoFLOXacin (Levaquin) 500 MG tabletIndications: Arteriovenous graft infection, initial encounter (CMS/[facility]) Take 1 tablet by mouth daily. 90 tablet 1 02/01/20 25 026 Active clopidogrel (Plavix) 75 MG tablet Take 1 tablet by mouth daily. 30 tablet 3 10/21/19 25 025 Active Problems Problem Noted Date Diagnosed Date Mild protein-calorie malnutrition 11/12/2024 Surgical wound infection 11/05/2024 Pseudoaneurysm of left [...] Amlodipine restarted Imdur being held for now Resolved Problems Problem Noted Date Diagnosed Date Resolved Date Wound infection 11/06/2024 02/09/2025 Encounters Date Type Department Care Team Description 01/31/2025 1:00 PM EST Office Visit [facility] [address] [place] [address] Oscar Appiah MD Arteriovenous graft infection, initial encounter (CMS/[facility]) (Primary Dx) 01/31/2025 Travel 01/23/2025 10:40 AM EDT Office Visit [facility] [address] 5th Floor [address] [place] [address] Nathaly Nowak MD Pseudoaneurysm of left femoral artery (Primary Dx); Critical limb ischemia of left lower extremity; Left carotid stenosis; Atrial fibrillation, unspecified type ([facility]/HCC); Stenosis of both vertebral arteries; Primary hypertension; Coronary artery disease involving [place] heart without angina pectoris, unspecified vessel or lesion type; Chronic obstructive pulmonary disease, unspecified COPD type (CMS/HCC); Hyperlipidemia, unspecified hyperlipidemia type; Diabetes mellitus due to underlying condition with hyperosmolarity without coma, without long-term current use of insulin 01/23/2025 8:41 AM EDT - 01/23/2025 11:59 PM EDT Hospital Encounter [facility] [address], [address] [address] Critical limb ischemia of left lower extremity; Pseudoaneurysm of left femoral artery Discharge Disposition: Home or Self Care 01/23/2025 8:40 AM EDT Hospital Encounter [facility] [address], [address] [address] Critical limb ischemia of left lower extremity; Pseudoaneurysm of left femoral artery Discharge Disposition: Home or Self Care 01/23/2025 Travel 12/26/2024 Telephone [facility] [address], [address] [address] Nathaly Nowak MD 12/20/2024 Telephone [facility] [address] [place] [phone] Vaishali Kraus MD 12/20/[address] [phone] Oscar Appiah MD 12/20/2024 External Documentation Encounter [address] [address] Charlotte Arnold RN 12/20/2024 External Documentation Encounter [facility] [address] [place] [address] Charlotte Arnold RN 12/17/2024 Telephone [facility] [address] [place] [address] Osacr Appiah MD from Last 3 Months Immunizations Immunization Administration [...] drink first t dino in the morning (EYE-BINGO CASHIER) to steady your nerves or to get [...] Pulse 64 01/31/2025 12:46 PM EST Temperature 36.3 C (97.3 F) 01/23/2025 9:43 AM EDT Respiratory Rate 16 11/14/2024 11:56 AM EDT Oxygen Saturation 96% 01/31/2025 12:46 PM EST Inhaled Oxygen Concentration - - Weight 88.1 kg (194 lb 3.6 oz) 01/23/2025 9:43 A M EDT Height 170.2 cm (5' 7 ) 01/23/2025 9:43 AM EDT Body Mass Index 30.42 01/23/2025 9:43 AM EDT Plan of Treatment Upcoming Encounters Date Type Department Care Team (Late st Contact Info) Description 04/11/2025 3:00 PM EST Office Visit [facility] [address] [facility] [place] [address] Oscar Appiah MD [address] [facility] [address] [place] [address] 05/02/2025 2:00 PM EST Appointment [facility] [address] [facility] 5th Floor [address] [place] [phone] 05/02/2025 3:00 PM EST Office Visit [facility] [address] [facility] 5th Floor [address] [place] [address] Terrell Gautam MD [address] [place] [address] Health Maintenance Due Date Last Done Comments [facility]-Medicare Annual Wellness (AWV) 1960 [facility]-/Child/Adol SDOH Screenings 1959 Diabetes: Dental Exam 1969 [facility]-DTaP,Tdap,and Td Vaccines (1 - Tdap) 1978 CT Colonography 2004 Colonoscopy 2004 FIT 2004 FOBT 2004 Sigmoidoscopy 2004 [facility]-RSV Vaccine: 60+ Years or (1 - Risk 50-74 years 1-dose series) 2009 [facility]-Zoster Vaccines (2 of 2) 02/04/2021 12/10/2020 [facility]-Pneumococcal Vaccine: 50+ Years (2 of 2 - PCV) 03/11/2021 03/11/2020 FIT-DNA 08/19/2023 08/18/2020 [facility]-Colorectal Cancer Screening 08/19/2023 [facility]-Abdominal Aortic Aneurysm (AAA) Screening 2024 [id number] Vaccine ( season) 2024 02/06/2021, 07/31/2020 [facility]-Influenza Vaccine (#1) 11/25/202402/06, 03/11/2020, 03/05/2019, Additional history exists [facility]-Diabetes: Hemoglobin A1C 02/05/2025 11/06/2024, 02/26/2019 [facility]- SDOH Screenings 05/10/2025 [facility]-Adult SDOH Screenings 05/10/2025 11/07/2024 [facility]-Depression Screening 01/31/2026 01/31/2025 [facility]-Hepatitis C Screening Completed 09/20/2024, 06/2018 [facility]-Obesity Intervention Completed 025, 01/31/2025, 01/23/2025, Additional history exists HPV Vaccines (No Doses Required) Completed [facility]-HIB Vaccines Aged Out No longer e [...] [employer] Implanted Type Area Software Engineer Web Services Device Identifier Shelf Expiration Date Model / Serial / Lot Pacemaker Pacemaker Left: Chest Vascuguard 8 X 8 - [id number] Implanted:Qty: 1 on 10/17/2024 by Terrell Gautam MD at [facility] Left: [employer]-[id number] 05/10/2026 [id number] / / [id number] Stent Endoprosthesis Viabahn 9fr [id number] - [id number] Implanted:Qty: 1 on 10/17/2024 by Terrell Gautam MD at [facility] [employer]-[id number] 05/25/2027 [id number] / [id number] / [id number] Procedures Procedure Name Priority Date/Time Associated Diagnosis Comments CBC WITH AUTO DIFFERENTIAL Routine 01/31/2025 1:09 PM EST Arteriovenous graft infection, initial encounter ([facility]) COMPREHENSIVE METABOLIC PANEL, PLASMA Routine 01/31/2025 1:09 PM EST Arteriovenous graft infection, initial encounter ([facility]) VAS US ARTERIAL DUPLEX LOWER EXTREMITY UNILATERAL Routine 01/23/2025 9:46 AM EDT Critical limb ischemia of left lower extremity Pseudoaneurysm of left femoral artery VAS ANKLE BRACHIAL INDEX - SEGMENTAL Routine 01/23/2025 9:30 AM EDT Critical limb ischemia of left lower extremity Pseudoaneurysm of left femoral artery CBC WITH AUTO DIFFERENTIAL Routine 12/16/2024 COMPREHENSIVE METABOLIC PANEL, PLASMA Routine 12/16/2024 C-REACTIVE PROTEIN, PLASMA Routine 12/16/2024 HEMOGLOBIN A1C STAT 11/06/2024 1:07 AM EDT HEPATITIS C ANTIBODY - ED W/REFLEX TO HCV QUANT PCR STAT 09/20/2024 10:33 PM EDT from Last 3 Months or Most Recently Relevant to Health Maintenance Results * (ABNORMAL) CBC and differential (01/31/2025 1:09 PM EST) Only the most recent of2 resultswithin the time period is included. WBC Count 8.84 3.70 - 10.30 10*3/uL LAB HEMATOLOGY METHOD 01/31/2025 3:41 PM EST [facility] RBC Count 3.98(L) 4.60 - 6.10 10*6/uL LAB HEMATOLOGY METHOD 01/31/2025 3:41 PM EST [facility] HGB 11.2(L) 13.7 - 17.5 g/dL LAB HEMATOLOGY METHOD 01/31/2025 3:41 PM EST [facility] HCT 34.0(L) 40.0 - 51.0 % LAB HEMATOLOGY METHOD 01/31/2025 3:41 PM EST [facility] Platelet Count 310 155 - 369 10*3/uL LAB HEMATOLOGY METHOD 01/31/2025 3:41 PM EST [facility] MCV 85 79 - 98 fL LAB HEMATOLOGY METHOD 01/31/2025 3:41 PM [facility] MCH 28.1 26.0 - 32.0 pg LAB HEMATOLOGY METHOD 01/31/2025 3:41 PM [facility] MCHC 32.9 30.7 - 35.5 g/dL LAB HEMATOLOGY METHOD 01/31/2025 3:41 PM [facility] RDW 15.3(H) 11.5 - 14.5 % LAB HEMATOLOGY METHOD 01/31/2025 3:41 PM [facility] MPV 9.5 8.8 - 12.5 fL LAB HEMATOLOGY METHOD 01/31/2025 3:41 PM [facility] nRBC 0.0 <=0.0 per 100 WBCs LAB HEMATOLOGY METHOD 01/31/2025 3:41 PM [facility] Differential Type Automated LAB HEMATOLOGY METHOD 01/31/2025 3:41 PM [facility] Neutrophils % 68 % LAB HEMATOLOGY METHOD 01/31/2025 3:41 PM [facility] Lymphocytes % 20 % LAB HEMATOLOGY METHOD 01/31/2025 3:41 PM EST [facility] Monocytes % 9 % LAB HEMATOLOGY METHOD 01/31/2025 3:41 PM EST [facility] Eosinophils % 1 % LAB HEMATOLOGY METHOD 01/31/2025 3:41 PM EST [facility] Basophils % 1 % LAB HEMATOLOGY METHOD 01/31/2025 3:41 PM EST [facility] Immature Granulocytes % 1 % LAB HEMATOLOGY METHOD 01/31/2025 3:41 PM EST [facility] Neutrophils Absolute 6.10 1.60 - 6.10 10*3/uL LAB HEMATOLOGY METHOD 01/31/2025 3:41 PM EST [facility] Lymphocytes Absolute 1.72 1.20 - 3.90 10*3/uL LAB HEMATOLOGY METHOD 01/31/2025 3:41 PM EST [facility] Monocytes Absolute 0.82 0.30 - 0.90 10*3/uL LAB HEMATOLOGY METHOD 01/31/2025 3:41 PM EST [facility] Eosinophils Absolute 0.09 0.00 - 0.50 10*3/uL LAB HEMATOLOGY METHOD 01/31/2025 3:41 PM EST [facility] Basophils Absolute 0.04 0.00 - 0.10 10*3/uL LAB HEMATOLOGY METHOD 01/31/2025 3:41 PM EST [facility] Immature Granulocytes Absolute 0.07(H) 0.00 - 0.06 10*3/uL LAB HEMATOLOGY METHOD 01/31/2025 3:41 PM EST [facility] Blood Venous blood specimen / Unknown Venipuncture / Unknown 01/31/2025 1:09 PM EST 01/31/2025 1:14 PM EST Narrative [facility] - 01/31/2025 3:41 PM EST Therapeutic decision making should be based on absolute values, rather than percentages. us Oscar Appiah MD LAB BLOOD ORDERABLES Final Result [facility] [address] [place] [address] * (ABNORMAL) Comprehensive metabolic panel (01/31/2025 1:09 PM EST) Only the most recent of2 resultswithin the time period is included. Glucose, Plasma 327(H) 74 - 99 mg/dL 01/31/2025 3:47 PM EST [facility] BUN, Plasma 26(H) 8 - 23 mg/dL 01/31/2025 3:47 PM [facility] Creatinine, Plasma 0.80 0.70 - 1.20 mg/dL 01/31/2025 3:47 PM [facility] BUN/Creatinine Ratio 33 01/31/2025 3:47 PM [facility] Sodium, Plasma 132(L) 136 - 145 mmol/L 01/31/2025 3:47 PM [facility] Potassium, Plasma 4.7 3.6 - 4.9 mmol/L 01/31/2025 3:47 PM [facility] Chloride, Plasma 95(L) 97 - 107 mmol/L 01/31/2025 3:47 PM [facility] CO2, Plasma 26 22 - 29 mmol/L 01/31/2025 3:47 PM [facility] Anion Gap 11 6 - 16 mmol/L 01/31/2025 3:47 PM [facility] Total Calcium, Plasma 10.6(H) 8.9 - 10.2 mg/dL 01/31/2025 3:47 PM [facility] Total Protein 6.8 6.3 - 7.9 g/dL 01/31/2025 3:47 PM [facility] Albumin, Plasma 3.7 3.5 - 5.2 g/dL 01/31/2025 3:47 PM [facility] AST, Plasma 12 10 - 50 U/L 01/31/2025 3:47 PM [facility] ALT, Plasma 14 10 - 50 U/L 01/31/2025 3:47 PM [facility] Alkaline Phosphatase, Plasma 124(H) 40 - 115 U/L 01/31/2025 3:47 PM [facility] Total Bilirubin, Plasma 0.2 0.2 - 1.1 mg/dL 01/31/2025 3:47 PM [facility] eGFRcr 98.2 mL/min/1.7 3m*2 01/31/2025 3:47 PM [facility] Comment:Reported eGFRcr in m L/min/1.73m2 is based the CKD-EPI 2020 equation that does not use a race coefficient. Blood Venous blood specimen / Unknown Venipuncture / Unknown 01/31/2025 1:09 PM EST 01/31/2025 1:14 PM EST us Oscar Appiah MD LAB BLOOD ORDERABLES Final Result [facility] [address] [place] [address] * VAS US Arterial Duplex Lower Extremity [...] cm/s Dorsalis pedis artery:63 cm/s Procedure Note Nathaly Nowak MD - 01/23/2025 CLINICAL INDICATION: S/P [...] MD CV VASCULAR PROCEDURES Final Result * VAS Ankle Brachial Index - Segmental [...] are demonstrated at the level of the KNITTER OPERATOR (imaged on arterial duplex). Monophasic waveforms are demonstrated at the levels of the AIR TECHNICIAN and DPA. Segmental pressures are below normal limits with an SIL of 0.62 (118 mmHg) at the AIR TECHNICIAN and an SIL of 0.79 (149 mmHg) at the DPA. Digit pressures are 20 mmHg. Left: Monophasic waveforms are demonstrated at the levels of the KNITTER OPERATOR (imaged on arterial duplex) and DPA. No flow detected in the AIR TECHNICIAN. Segmental pressures are below normal limits with [...] are demonstrated at the level of the KNITTER OPERATOR(imaged on arterial duplex). Monophasic waveforms are demonstrated at thelevels of the AIR TECHNICIAN and DPA. Segmental pressures are below normal limitswith an SIL of 0.62 (118 mmHg) at the AIR TECHNICIAN and an SIL of 0.79 (149 mmHg) atthe DPA. Digit pressures are 20 mmHg. Left: Monophasic waveforms are demonstrated at the levels of the KNITTER OPERATOR(imaged on arterial duplex) and DPA. No flow detected in the AIR TECHNICIAN.Segmental pressures are below normal limits with an [...] Nathaly Nowak MD on 01/23/2025 10:46 AM Terrell Gautam MD CV VASCULAR PROCEDURES Final Result * C-Reactive Protein, Plasma (12/16/2024) External C-Reactive Protein(CRP) 3.0 0 - 4 mg/l Blood Venous blood specimen / Unknown 12/16/2024 Historical Provider LAB BLOOD ORDERABLES Final R esult * (ABNORMAL) Hemoglobin A1c (11/06/2024 1:07 AM [...] Adults <6.0% Children and Adolescents <7.5% Source: [place] [employer]. Standards of medical care in diabetes,2017. Diabetes Care.2017:40 (suppl 1):S1-S135. Nathaly Nowak MD LAB BLOOD ORDERABLES Final Resu lt [facility] [address] [place] [address] * Hepatitis C Antibody - ED (09/20/2024 10:33 PM EDT) Hepatitis C Antibody Negative Negative 09/20/2024 11:39 PM EDT [facility] Blood Venous blood specimen / Unknown Venipuncture / Unknown 09/20/2024 10:33 PM EDT 09/20/2024 10:53 PM EDT Giorgi Perkins MD LAB BLOOD ORDERABLES Final Result [facility] [address] [place] [address] from Last 3 Months or Most Recently Relevant to Health Maintenance Additional Health Concerns Active Problems Noted Date Diagnosed Date Autogenerated Problem 09/23/2024 Insurance MEDICAID [facility]IC[facility] Advance Directives * Full Code [...] Patient has decision-making capacity? Yes Care Teams Sock Lining Examiner Relationship Specialty Start Date End Date Asad Victor MD [address] [place] [address] PCP - General 10/07/22
--- OUTSIDE RECORDS SUMMARY | 2025-03-13 11:01 | XMS_ITS | Encounter Summary ---
Author Organization [employer] ([place], [place], [place], [place], [place]) Address [address] [place] [address] Care Team Providers Care Scaffolder Name Role Phone Unavailable Primary Care Provider Unavailabl e Encounter Details Date Type Department Care Team (Latest Contact Info) Description 03/03/2025 Travel Social History Tobacco Use Types Packs/Day [...] Description 03/17/2025 10:40 AM EST Office Visit [facility] [address] [place] [phone] Jerry Monroe Jr., MD [address] [place] [phone] 03/24/2025 10:40 AM EST Office Visit [facility] [address] [place] [address] Jerry Monroe Jr., MD [address] [place] [phone] documented as of this encounter Visit Diagnoses Not on filedocumented in this encounter
--- OUTSIDE RECORDS SUMMARY | 2025-03-13 11:01 | XMS_ITS | Encounter Summary ---
Author Organization [email or web address] ([place], [place], [place], [place], [place]) Address [address] [place] [address] Care Team Providers Care Dyed Yarn Operator Name Role Phone Unavailable Primary Care Provider Unavailabl e Encounter Details Date Type Department Care Team (Latest Contact Info) Description 02/24/2025 Travel Social History Tobacco Use Types Packs/Day [...] Description 03/17/2025 10:40 AM EST Office Visit [facility] [address] [place] [phone] Jerry Monroe Jr., MD [address] [place] [phone] 03/24/2025 10:40 AM EST Office Visit [facility] [address] [place] [address] Jerry Monroe Jr., MD [address] [place] [phone] documented as of this encounter Visit Diagnoses Not on filedocumented in this encounter
--- OUTSIDE RECORDS SUMMARY | 2025-03-13 11:02 | XMS_ITS | Referral Summary ---
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); Localized tissue (HCC); Other specified local infections of the skin and subcutaneous tissue; Diabetes mellitus with skin ulcer (HCC); 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) 03/03/2025 Travel 03/03/2025 10:50 AM EST Office Visit [facility] [address] [phone] Jerry Monroe Jr., MD 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); Localized tissue (HCC); Other specified local infections of the skin and subcutaneous tissue; Diabetes mellitus with skin ulcer (HCC) 02/24/2025 Travel 02/24/2025 11:00 AM EST Office Visit [facility] [address] [phone] Jerry Monroe Jr., MD 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); Localized tissue (HCC); Other specified local infections of the skin and subcutaneous tissue; Diabetes mellitus with skin ulcer (HCC) 02/17/2025 Travel 02/17/2025 11:00 AM EST Office Visit [facility] [address] [phone] Jerry Monroe Jr., MD 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); Localized tissue (HCC); Other specified local infections of the skin and subcutaneous tissue; Diabetes mellitus with skin ulcer (HCC) 02/10/2025 Travel 02/10/2025 11:20 AM EST Office Visit [address] [phone] Jerry Monroe Jr., MD 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); Localized tissue (HCC); Other specified local infections of the skin and subcutaneous tissue; Diabetes mellitus with skin ulcer (HCC) 02/06/[address] [phone] Melissa Celis RN follow up on supplies 02/03/2025 Travel 02/03/2025 11:10 AM EST Office Visit [address] [phone] Jerry Monroe Jr., MD 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); Localized tissue (HCC); Other specified local infections of the skin and subcutaneous tissue; Diabetes mellitus with skin ulcer (HCC) 01/27/2025 Travel 01/27/2025 3:20 PM EST Office Visit [address] [phone] Jerry Monroe Jr., MD 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); Localized tissue (HCC); Other specified local infections of the skin and subcutaneous tissue; Diabetes mellitus with skin ulcer (HCC) 01/23/2025 Travel 01/23/2025 3:30 PM EDT Clinical Support [address] [phone] Jerry Monroe Jr., MD 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) 01/20/2025 Travel 01/20/2025 3:20 PM EDT Office Visit [facility] [place] [address] [place] [address] Jerry Monroe Jr., MD 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) 12/20/2024 Travel 12/20/2024 3:30 PM EDT Clinical Support [address] [phone] Jerry Monroe Jr., MD 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) 12/18/2024 3:00 PM EDT Office Visit [address] [phone] Jerry Monroe Jr., MD 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); Localized tissue (HCC); Other specified local infections of the skin and subcutaneous tissue; Diabetes mellitus with skin ulcer (HCC); 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 Active mupirocin (BACTROBAN) 2 % ointmentIndicatio ns:Other specified local infections of the skin and subcutaneous tissue 1 gram to wrist wound daily. 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) Localized tissue (HCC) Other specified local infections of the skin and subcutaneous tissue SD DEBRIDEMENT SUBCUTANEOUS TISSUE 1ST 20 SQ CM/< Routine 03/03/2025 10:50 AM EST 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) Localized tissue (HCC) Other specified local infections of the skin and subcutaneous tissue WOUND TREATMENT Routine 02/24/2025 5:18 PM EST 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) SD DEBRIDEMENT SUBCUTANEOUS TISSUE 1ST 20 SQ CM/< Routine 02/24/2025 11:00 AM EST 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) Localized tissue (HCC) Other specified local infections of the skin and subcutaneous tissue WOUND TREATMENT Routine 02/17/2025 4:05 PM EST 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) SD DEBRIDEMENT SUBCUTANEOUS TISSUE 1ST 20 SQ CM/< Routine 02/17/2025 11:00 AM EST 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) Localized tissue (HCC) Other specified local infections of the skin and subcutaneous tissue WOUND TREATMENT Routine 02/10/2025 5:24 PM EST 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) SD DEBRIDEMENT SUBCUTANEOUS TISSUE 1ST 20 SQ CM/< Routine 02/10/2025 11:20 AM EST 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) Localized tissue (HCC) Other specified local infections of the skin and subcutaneous tissue SD DEBRIDEMENT SUBCUTANEOUS TISSUE 1ST 20 SQ CM/< Routine 02/03/2025 11:10 AM EST 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) Localized tissue (HCC) Other specified local infections of the skin and subcutaneous tissue WOUND TREATMENT Routine 01/28/2025 7:51 AM EST 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) SD DEBRIDEMENT SUBCUTANEOUS TISSUE 1ST 20 SQ CM/< Routine 01/27/2025 3:20 PM EST 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) Localized tissue (HCC) Other specified local infections of the skin and subcutaneous tissue SD DEBRIDEMENT SUBCUTANEOUS TISSUE 1ST 20 SQ CM/< Routine 01/20/2025 3:20 PM EDT 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) Localized tissue (HCC) Other specified local infections of the skin and subcutaneous tissue SD DEBRIDEMENT SUBCUTANEOUS TISSUE 1ST 20 SQ CM/< Routine 01/13/2025 3:20 PM EDT 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) Localized tissue (HCC) Other specified local infections of the skin and subcutaneous tissue SD DEBRIDEMENT SUBCUTANEOUS TISSUE 1ST 20 SQ CM/< Routine 01/06/2025 3:30 PM EDT 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) Localized tissue (HCC) Other specified local infections of the skin and subcutaneous tissue SD DEBRIDEMENT SUBCUTANEOUS TISSUE 1ST 20 SQ CM/< Routine 12/30/2024 3:10 PM EDT 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) Localized tissue (HCC) Other specified local infections of the skin and subcutaneous tissue SD DEBRIDEMENT SUBCUTANEOUS TISSUE EA ADDL 20 SQ CM Routine 12/25/2024 3:00 PM EDT 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) Localized tissue (HCC) Other specified local infections of the skin and subcutaneous tissue SD DEBRIDEMENT SUBCUTANEOUS TISSUE 1ST 20 SQ CM/< Routine 12/25/2024 3:00 PM EDT 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) Localized tissue (HCC) Other specified local infections of the skin and subcutaneous tissue SD DEBRIDEMENT SUBCUTANEOUS TISSUE EA ADDL 20 SQ CM Routine 12/25/2024 3:00 PM EDT 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) Localized tissue (HCC) Other specified local infections of the skin and subcutaneous tissue SD DEBRIDEMENT SUBCUTANEOUS TISSUE 1ST 20 SQ CM/< Routine 12/25/2024 3:00 PM EDT 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 [...] SURGICAL ORDERABLES Final Result * SD DEBRIDEMENT SUBCUTANEOUS TISSUE 1ST 20 SQ CM/< (03/03/2025 10:50 AM EST) Jerry Littlejohn Jr., MD - 03/03/2025 10:50 AM EST [...] provider verified the correct patient, procedure, equipment, program support clerk, and site/side marked as required. [...] SURGICAL ORDERABLES Final Result * Wound Treatment (02/24/2025 5:18 PM EST) Only the most recent of6 resultswithin the time period is included. Jerry Monroe Jr., MD NURSING PATHWAYS ORDERABL ES Final Result * SD DEBRIDEMENT SUBCUTANEOUS TISSUE 1ST 20 SQ CM/< (02/24/2025 11:00 AM EST) Jerry Littlejohn Jr., MD - 02/24/2025 11:00 AM EST [...] provider verified the correct patient, procedure, equipment, program support clerk, and site/side marked as required. [...] SURGICAL ORDERABLES Final Result * SD DEBRIDEMENT SUBCUTANEOUS TISSUE 1ST 20 SQ CM/< (02/17/2025 11:00 AM EST) Jerry Littlejohn Jr., MD - 02/17/2025 11:00 AM EST [...] provider verified the correct patient, procedure, equipment, program support clerk, and site/side marked as required. [...] SURGICAL ORDERABLES Final Result * SD DEBRIDEMENT SUBCUTANEOUS TISSUE 1ST 20 SQ CM/< (02/10/2025 11:20 AM EST) Jerry Littlejohn Jr., MD - 02/10/2025 11:20 AM EST [...] provider verified the correct patient, procedure, equipment, program support clerk, and site/side marked as required. [...] SURGICAL ORDERABLES Final Result * SD DEBRIDEMENT SUBCUTANEOUS TISSUE 1ST 20 SQ CM/< (02/03/2025 11:10 AM EST) Jerry Littlejohn Jr., MD - 02/03/2025 11:10 AM EST [...] provider verified the correct patient, procedure, equipment, program support clerk, and site/side marked as required. [...] SURGICAL ORDERABLES Final Result * SD DEBRIDEMENT SUBCUTANEOUS TISSUE 1ST 20 SQ CM/< (01/27/2025 3:20 PM EST) Jerry Littlejohn Jr., MD - 01/27/2025 3:20 PM EST [...] provider verified the correct patient, procedure, equipment, program support clerk, and site/side marked as required. [...] SURGICAL ORDERABLES Final Result * SD DEBRIDEMENT SUBCUTANEOUS TISSUE 1ST 20 SQ CM/< (01/20/2025 3:20 PM EDT) Jerry Littlejohn Jr., MD - 01/20/2025 3:20 PM EDT [...] provider verified the correct patient, procedure, equipment, program support clerk, and site/side marked as required. [...] SURGICAL ORDERABLES Final Result * SD DEBRIDEMENT SUBCUTANEOUS TISSUE 1ST 20 SQ CM/< (01/13/2025 3:20 PM EDT) Jerry Littlejohn Jr., MD - 01/13/2025 3:20 PM EDT [...] provider verified the correct patient, procedure, equipment, program support clerk, and site/side marked as required. [...] SURGICAL ORDERABLES Final Result * SD DEBRIDEMENT SUBCUTANEOUS TISSUE 1ST 20 SQ CM/< (01/06/2025 3:30 PM EDT) Jerry Littlejohn Jr., MD - 01/06/2025 3:30 PM EDT Jerry Monroe Jr., MD 01/06/2025 9:42 PM Debridement Wound 11/18/24 Groin Left Performed by: Jerry Monroe Jr., MD Authorized by: Jerry Monroe Jr., MD Consent Consent obtained? written Consent given by: patient Risks discussed? procedural risks discussed Immediately prior to the procedure a time out was called and the performing provider verified the correct patient, procedure, equipment, program support clerk, and site/side marked as required. Debridement Details Performed by: physician Debridement type: surgical Level of debridement: subcutaneous tissue Pain control: lidocaine 2% Pain control administration type: topical Pre-debridement measurements Length (cm): 3.5 Width (cm): 4.7 Depth (cm): 3.3 Surface Area (cm^2): 12.92 Post-debridement measurements Length (cm): 3.6 Width (cm): 4.8 Depth (cm): 3.4 Percent debrided: 100% Surface Area (cm^2): 13.57 Area Debrided (cm^2): 13.57 Volume (cm^3): 30.76 Tissue and other material debrided: adipose, dermis and subcutaneous tissue Devitalized tissue debrided: biofilm Instrument(s) utilized: curette Bleeding: small Hemostasis obtained with: pressure Procedural pain (0-10): 2 Post-procedural pain: 1 Response to treatment: procedure was tolerated well us Jerry Monroe Jr., MD PROCEDURE/MINOR SURGICAL ORDERABLES Final Result * SD DEBRIDEMENT SUBCUTANEOUS TISSUE 1ST 20 SQ CM/< (12/30/2024 3:10 PM EDT) Jerry Littlejohn Jr., MD - 12/30/2024 3:10 PM EDT Jerry Monroe Jr., MD 12/30/2024 6:03 PM Debridement Wound 11/18/24 Groin Left Performed by: Jerry Monroe Jr., MD Authorized by: Jerry Monroe Jr., MD Consent Consent obtained? written Consent given by: patient Risks discussed? procedural risks discussed Immediately prior to the procedure a time out was called and the performing provider verified the correct patient, procedure, equipment, program support clerk, and site/side marked as required. Debridement Details Performed by: physician Debridement type: surgical Level of debridement: subcutaneous tissue Pain control: lidocaine 2% Pain control administration type: topical Pre-debridement measurements Length (cm): 4.5 Width (cm): 4.8 Depth (cm): 3.7 Surface Area (cm^2): 16.96 Post-debridement measurements Length (cm): 4.6 Width (cm): 4.9 Depth (cm): 3.8 Percent debrided: 100% Surface Area (cm^2): 17.7 Area Debrided (cm^2): 17.7 Volume (cm^3): 44.85 Tissue and other material debrided: adipose, dermis, epidermis and subcutaneous tissue Devitalized tissue debrided: biofilm, fibrin and slough Instrument(s) utilized: curette Bleeding: small Hemostasis obtained with: pressure Procedural pain (0-10): 2 Post-procedural pain: 1 Response to treatment: procedure was tolerated well Jerry Monroe Jr., MD PROCEDURE/MINOR SURGICAL ORDERABLES Final Result * SD DEBRIDEMENT SUBCUTANEOUS TISSUE 1ST 20 SQ CM/<, SD DEBRIDEMENT SUBCUTANEOUS TISSUE EA ADDL 20SQ CM (12/25/2024 3:00 PM EDT) Jerry Littlejohn Jr., MD - 12/25/2024 3:00 PM EDT Jerry Monroe Jr., MD 12/25/2024 7:36 PM Debridement Wound 11/18/24 Groin Left Performed by: Jerry Monroe Jr., MD Authorized by: Jerry Monroe Jr., MD Consent Consent obtained? written Consent given by: patient Risks discussed? procedural risks discussed Immediately prior to the procedure a time out was called and the performing provider verified the correct patient, procedure, equipment, program support clerk, and site/side marked as required. Debridement Details Performed by: physician Debridement type: surgical Level of debridement: subcutaneous tissue Pain control: lidocaine 2% Pain control administration type: topical Pre-debridement measurements Length (cm): 5.5 Width (cm): 4.5 Depth (cm): 3.2 Surface Area (cm^2): 19.44 Post-debridement measurements Length (cm): 5.6 Width (cm): 4.6 Depth (cm): 3.3 Percent debrided: 100% Surface Area (cm^2): 20.23 Area Debrided (cm^2): 20.23 Volume (cm^3): 44.51 Tissue and other material debrided: adipose, dermis, epidermis and subcutaneous tissue Devitalized tissue debrided: biofilm, fibrin and slough Instrument(s) utilized: curette Bleeding: small Hemostasis obtained with: pressure Procedural pain (0-10): 2 Post-procedural pain: 1 Response to treatment: procedure was tolerated well Jerry Monroe Jr., MD PROCEDURE/MINOR SURGICAL ORDERABLES Final Result * SD DEBRIDEMENT SUBCUTANEOUS TISSUE 1ST 20 SQ CM/<, SD DEBRIDEMENT SUBCUTANEOUS TISSUE EA ADDL 20SQ CM (12/25/2024 3:00 PM EDT) Jerry Littlejohn Jr., MD - 12/25/2024 3:00 PM EDT Jerry Monroe Jr., MD 12/25/2024 7:36 PM Debridement Wound 11/18/24 Leg upper Left;Medial Performed by: Jerry Monroe Jr., MD Authorized by: Jerry Monroe Jr., MD Consent Consent obtained? written Consent given by: patient Risks discussed? procedural risks discussed Immediately prior to the procedure a time out was called and the performing provider verified the correct patient, procedure, equipment, program support clerk, and site/side marked as required. Debridement Details Performed by: physician Debridement type: surgical Level of debridement: subcutaneous tissue Pain control: lidocaine 2% Pain control administration type: topical Pre-debridement measurements Length (cm): 1 Width (cm): 0.3 Depth (cm): 0.2 Surface Area (cm^2): 0.24 Post-debridement measurements Length (cm): 1.1 Width (cm): 0.4 Depth (cm): 0.3 Percent debrided: 100% Surface Area (cm^2): 0.35 Area Debrided (cm^2): 0.35 Volume (cm^3): 0.07 Tissue and other material debrided: adipose, dermis, [...] provider verified the correct patient, procedure, equipment, program support clerk, and site/side marked as required. [...] Final Result from Last 3 Months Insurance [facility] MCR ADV DUAL COMPLE[employer] [place] [employer] [place]
--- OUTSIDE RECORDS SUMMARY | 2025-03-13 11:02 | XMS_ITS | Encounter Summary ---
Author Organization [employer] ([place], [place], [place], [place], [place]) Address [address] [place] [address] Care Team Providers Care Rn Ed Name Role Phone Unavailable Primary Care Provider Unavailabl e Encounter Details Date Type Department Care Team (Latest Contact Info) Description 01/16/2025 Travel Social History Tobacco Use Types Packs/Day [...] Description 03/17/2025 10:40 AM EST Office Visit [facility] [address] [place] [phone] Jerry Monroe Jr., MD [address] [place] [address] 03/24/2025 10:40 AM EST Office Visit [facility] [address] [place] [address] Jerry Monroe Jr., MD [address] [place] [address] documented as of this encounter Visit Diagnoses Not on filedocumented in this encounter
--- OUTSIDE RECORDS SUMMARY | 2025-03-13 11:02 | XMS_ITS | Encounter Summary ---
Author Organization Healthcare Address [address] [place] [address] Care Team Providers Care [facility] Former Name Role Phone Asad Victor MD Primary Care Provider + [phone] Encounter Details Date Type Department Care Team (Late st Contact Info) Description 12/07/2024 Results Follow-Up [address] [phone] Vaishali Kraus MD [address] [place] [address] [address] [place] [address] Social History Tobacco Use Types [...] drink first t dino in the morning (EYE-PEARL PELLER) to steady your nerves or to get [...] Never 01/23/2025 9:46 AM EDT Socorro Ferrera * Over the past 2 weeks, how [...] EST Office Visit [facility] [address] [place] [address] Oscar Appiah MD [address] [facility] [address] [place] [phone] 05/02/2025 2:00 PM EST Appointment [facility] [address] [place] [address] 05/02/2025 3:00 PM EST [facility] [address] [place] [place] [address] Terrell Gautam [facility] [address] [facility] [address] [place] [address] documented as of this encounter [...] documented as of this encounter Care Teams [employer] Former Relationship Specialty Start Date End Date Asad Victor MD [address] [place] [address] PCP - General 10/07/22 documented as of this encounter
--- OUTSIDE RECORDS SUMMARY | 2025-03-13 11:02 | XMS_ITS | Encounter Summary ---
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 [address] [place] [id number] Oscar Appiah MD [address] [facility] [address] [place] [phone] 05/02/2025 2:00 PM EST Appointment [facility] Vascular Lab [address] [facility] 5th Floor [address] [place] [address] 05/02/2025 3:00 PM EST Office Visit [facility] [address] [facility] 5th Floor [address] [place] [phone] Terrell Gautam MD [address] [facility] [address] [place] [address] documented as of this encounter Goals Goal [...] as of this encounter Care Teams Package Liner Relationship Specialty Start Date End Date Asad Victor MD [address] [place] [address] PCP - General 10/07/22 documented as of this encounter
--- OUTSIDE RECORDS SUMMARY | 2025-03-13 11:02 | XMS_ITS | Encounter Summary ---
Author Organization [employer] ([place], [place], [place], [place], [place]) Address [address] [place] [address] Care Team Providers Care Returned Item Clerk Name Role Phone Unavailable Primary Care Provider Unavailabl e Encounter Details Date Type Department Care Team (Latest Contact Info) Description 03/10/2025 Travel Social History Tobacco Use Types Packs/Day [...] Description 03/17/2025 10:40 AM EST Office Visit [facility] 1 [place] [phone] Jerry Monroe Jr., MD [address] [place] [address] 03/24/2025 10:40 AM EST Office Visit [facility] 1 [place] [address] Jerry Monroe Jr., MD [address] [place] [address] documented as of this encounter Visit Diagnoses Not on filedocumented in this encounter
--- OUTSIDE RECORDS SUMMARY | 2025-03-13 11:02 | XMS_ITS | Encounter Summary ---
Author Organization Healthcare Address [address] [place] [address] Care Team Providers Care Film Processing Utility Worker Name Role Phone Asad Victor MD Primary Care Provider + [phone] Encounter Details Date Type Department Care Team (Late st Contact Info) Description 12/20/2024 Telephone [facility] [place] [id number] [place] [address] Vaishali Kraus MD [address] [place] [address] [address] [place] [address] Social History Tobacco Use Types [...] any time in the past 12 m [facility], were you homeless or living in [...] drink first t dino in the morning (EYE-CREATIVE ENGAGEMENT DIRECTOR) to steady your nerves or to get rid of a hangover? 0 10/18/2021 CAGE Questionnaire Score 0 022 Utilities Answer Date Recorded In the past 12 months has th e [employer], gas, oil, or water company threatened to shut off services in your home? No 11/07/2024 Sex and Gender Information Value Date Recorded Sex Assigned at Not on file Legal Sex Male 8:57 PM EDT Gender Identity Not on file Sexual Orientation Not on file documented as of this encounter Miscellaneous Notes * Telephone Encounter - Mattie Jazmyn Trejo - 12/20/2024 1:53 PM EDT Clinical Concern/Question Reason for Call: Douglasjuani is calling to speak with you about this pt Best contact number: Other: [phone] Optimal time of day to reach caller: ANYTIME Additional comments/information from caller: None Note: Please do not reply to this message. Follow-up communication and further actions as a result of this message need to be communicated with the patient directly, if the patient is not active onMyChart. If the patient is active on MyChart, they will receive notification of the communication/outcome via [employer]. documented in this encounter Plan of Treatment Upcoming Encounters Date Type Department Care Team (Late st Contact Info) Description 04/11/2025 3:00 PM EST Office Visit [facility] [address] [place] [address] Oscar Appiah MD [address] [facility] [address] [place] [address] 05/02/2025 2:00 PM EST Appointment [facility] Vascular Lab [address] [facility] 5th Floor [address] [place] [address] 05/02/2025 3:00 PM EST Office Visit [facility] [address] [facility] 5th Floor [address] [place] [address] Terrell Gautam MD [address] [facility] [address] [place] [address] documented as of this encounter [...] documented as of this encounter Care Teams Film Processing Utility Worker Relationship Specialty Start Date End Date Asad Victor MD [address] [place] [address] PCP - General 10/07/22 documented as of this encounter
--- OUTSIDE RECORDS SUMMARY | 2025-03-13 11:02 | XMS_ITS | Encounter Summary ---
Author Organization [employer] ([place], [place], [place], [place], [place]) Address [address] [place] [address] Care Team Providers Care Finish Off Operator Name Role Phone Unavailable Primary Care Provider Unavailabl e Encounter Details Date Type Department Care Team (Latest Contact Info) Description 01/13/2025 Travel Social History Tobacco Use Types Packs/Day [...] Description 03/17/2025 10:40 AM EST Office Visit [facility] 1 [place] [phone] Jerry Monroe Jr., MD [address] [place] [address] 03/24/2025 10:40 AM EST Office Visit [facility] 1 [place] [address] Jerry Monroe Jr., MD [address] [place] [address] documented as of this encounter Visit Diagnoses Not on filedocumented in this encounter
--- OUTSIDE RECORDS SUMMARY | 2025-03-13 11:02 | XMS_ITS | Encounter Summary ---
Author Organization [employer] ([place], [place], [place], [place], [place]) Address [address] [place] [address] Care Team Providers Care Conveyor Attendant Name Role Phone Unavailable Primary Care [...] 03/17/2025 10:40 AM EST Office Visit [facility] 1 [place] [address] Jerry Monroe Jr., MD [address] [place] [address] 03/24/2025 10:40 AM EST Office Visit [facility] 1 [place] [address] Jerry Monroe Jr., MD [address] [place] [address] documented as of this encounter Visit Diagnoses Not on filedocumented in this encounter
--- OUTSIDE RECORDS SUMMARY | 2025-03-13 11:02 | XMS_ITS | Encounter Summary ---
Author Organization [employer] ([place], [place], [place], [place], [place]) Address [address] [place] [address] Care Team Providers Care Heel Sprayer First Name Role Phone Unavailable Primary Care Provider Unavailabl e Encounter Details Date Type Department Care Team (Latest Contact Info) Description 01/20/2025 Travel Social History Tobacco Use Types Packs/Day [...] Description 03/17/2025 10:40 AM EST Office Visit [facility] 1 [place] [phone] Jerry Monroe Jr., MD [address] [place] [address] 03/24/2025 10:40 AM EST Office Visit [facility] 1 [place] [address] Jerry Monroe Jr., MD [address] [place] [address] documented as of this encounter Visit Diagnoses Not on filedocumented in this encounter
--- OUTSIDE RECORDS SUMMARY | 2025-03-13 11:02 | XMS_ITS | Clinical Summary ---
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); Localized tissue (HCC); Other specified local infections of the skin and subcutaneous tissue; Diabetes mellitus with skin ulcer (HCC); 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) 03/10/2025 Travel 03/03/2025 10:50 AM EST Office Visit [facility] [address] [place] [address] Jerry Monroe Jr., MD 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); Localized tissue (HCC); Other specified local infections of the skin and subcutaneous tissue; Diabetes mellitus with skin ulcer (HCC) 03/03/2025 Travel 02/24/2025 11:00 AM EST Office Visit [facility] [address] [phone] Jerry Monroe Jr., MD 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); Localized tissue (HCC); Other specified local infections of the skin and subcutaneous tissue; Diabetes mellitus with skin ulcer (HCC) 02/24/2025 Travel 02/17/2025 11:00 AM EST Office Visit [facility] [address] [address] Jerry Monroe Jr., MD 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); Localized tissue (HCC); Other specified local infections of the skin and subcutaneous tissue; Diabetes mellitus with skin ulcer (HCC) 02/17/2025 Travel 02/10/2025 11:20 AM EST Office Visit [facility] [address] [address] Jerry Monroe Jr., MD 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); Localized tissue (HCC); Other specified local infections of the skin and subcutaneous tissue; Diabetes mellitus with skin ulcer (HCC) 02/10/2025 Travel 02/06/[address] [address] Melissa Celis RN follow up on [facility] 02/03/2025 11:10 AM EST Office Visit [address] [address] Jerry Monroe Jr., MD 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); Localized tissue (HCC); Other specified local infections of the skin and subcutaneous tissue; Diabetes mellitus with skin ulcer (HCC) 02/03/2025 Travel 01/27/2025 3:20 PM EST Office Visit [address] [address] Jerry Monroe Jr., MD 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); Localized tissue (HCC); Other specified local infections of the skin and subcutaneous tissue; Diabetes mellitus with skin ulcer (HCC) 01/27/2025 Travel 01/23/2025 3:30 PM EDT Clinical Support [address] [address] Jerry Monroe Jr., MD 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) 01/23/2025 Travel 01/20/2025 3:20 PM EDT Office Visit [facility] 1 [place] [phone] Jerry Monroe Jr., MD 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); Localized tissue (HCC); Other specified local infections of the skin and subcutaneous tissue; Diabetes mellitus with skin ulcer (HCC) 01/20/2025 Travel 01/16/2025 3:30 PM EDT Clinical Support [facility] [place] [address] [place] [address] Jerry Monroe Jr., MD 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) 01/16/2025 Travel 01/13/2025 3:20 PM EDT Office Visit [facility] [address] [place] [phone] Jerry Monroe Jr., MD 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); Localized tissue (HCC); Other specified local infections of the skin and subcutaneous tissue; Diabetes mellitus with skin ulcer (HCC) 01/13/2025 Travel 01/09/2025 3:15 PM EDT Clinical Support [facility] [address] [place] [address] Jerry Monroe Jr., MD 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) 01/09/2025 Travel 01/06/2025 3:30 PM EDT Office Visit [facility] [place] [address] [place] [address] Jerry Monroe Jr., MD 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); Localized tissue (HCC); Other specified local infections of the skin and subcutaneous tissue; Diabetes mellitus with skin ulcer (HCC) 01/06/2025 Travel 01/01/2025 3:30 PM EDT Clinical Support [facility] [address] [place] [address] Jerry Monroe Jr., MD 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) 01/01/2025 Travel 12/30/2024 3:10 PM EDT Office Visit [facility] 1 [place] [address] Jerry Monroe Jr., MD 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); Localized tissue (HCC); Other specified local infections of the skin and subcutaneous tissue; Diabetes mellitus with skin ulcer (HCC); 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) 12/30/2024 Travel 12/27/2024 3:15 PM EDT Clinical Support [facility] [address] [place] [address] Jerry Monroe Jr., MD 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) 12/27/2024 Travel 12/25/2024 3:00 PM EDT Office Visit [facility] [address] [address] Jerry Monroe Jr., MD 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); Localized tissue (HCC); Other specified local infections of the skin and subcutaneous tissue; Diabetes mellitus with skin ulcer (HCC) 12/25/2024 Travel 12/23/2024 4:00 PM EDT Clinical Support [facility] [address] [address] Jerry Monroe Jr., MD 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) 12/23/2024 Travel 12/20/2024 3:30 PM EDT Clinical Support [facility] [address] [place] [address] Jerry Monroe Jr., MD 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) 12/20/2024 Travel 12/18/2024 3:00 PM EDT Office Visit [facility] 1 [place] [address] Jerry oMnroe Jr., MD 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); Localized tissue (HCC); Other specified local infections of the skin and subcutaneous tissue; Diabetes mellitus with skin ulcer (HCC); 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) 12/16/2024 3:30 PM EDT Clinical Support [facility] 1 [place] [address] Jerry Monroe Jr., MD 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) 12/16/2024 Travel 12/13/2024 12:00 PM EDT Clinical Support [facility] 1 [place] [address] Jerry Monroe Jr., MD 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) 12/13/2024 Travel from Last 3 Months Social History [...] Description 03/17/2025 10:40 AM EST Office Visit [facility] 1 [place] [phone] Jerry Monroe Jr., MD [address] [place] [address] 03/24/2025 10:40 AM EST Office Visit [facility] [address] [place] [address] Jerry Monroe Jr., MD [address] [place] [address] Health Maintenance Due Date Last Done Comments CT Colonography 1959 Colonoscopy 1959 Colorectal Cancer Screening 1959 Diabetic Kidney Health Evaluation (KED) 1959 FOBT/FIT 1959 Fit-DNA (Cologuard) 1959 Sigmoidoscopy 1959 Diabetic Eye Exam 1969 Depression Screening (12+) 1971 Hepatitis C Screening 1977 DTAP/TDAP/TD VACCINES (1 - Tdap) 1978 Respiratory Syncytial Virus (RSV) Adult or (1 - Risk 60-74 years 1-dose series) 2019 Shingles Vaccine (Zoster) (2 of 2) 02/04/20212020 Pneumococcal 50+ years (2 of 2 - PCV) 03/11/2021 Abdominal Aortic Aneurysm (AAA) Screen 2024 Falls Risk Screening 03/27/2024 Hemoglobin A1C 11/18/2024 COVID-19 VACCINE (3 - season) 2024, 07/31/2020 Influenza Vaccine (#1) 2024 02/06/2021 Tobacco Cessation Counseling and Screening (12+) 03/10/2026 03/10/2025 Procedures Procedure Name Priority Date/Time Associated Diagnosis Comments PA DEBRIDEMENT SUBCUTANEOUS TISSUE 1ST 20 SQ CM/< Routine 03/10/2025 11:10 AM EST 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) Localized tissue (HCC) Other specified local infections of the skin and subcutaneous tissue PA DEBRIDEMENT SUBCUTANEOUS TISSUE 1ST 20 SQ CM/< Routine 03/03/2025 10:50 AM EST 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) Localized tissue (HCC) Other specified local infections of the skin and subcutaneous tissue WOUND TREATMENT Routine 02/24/2025 5:18 PM EST 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) PA DEBRIDEMENT SUBCUTANEOUS TISSUE 1ST 20 SQ CM/< Routine 02/24/2025 11:00 AM EST 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) Localized tissue (HCC) Other specified local infections of the skin and subcutaneous tissue WOUND TREATMENT Routine 02/17/2025 4:05 PM EST 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) PA DEBRIDEMENT SUBCUTANEOUS TISSUE 1ST 20 SQ CM/< Routine 02/17/2025 11:00 AM EST 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) Localized tissue (HCC) Other specified local infections of the skin and subcutaneous tissue WOUND TREATMENT Routine 02/10/2025 5:24 PM EST 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) PA DEBRIDEMENT SUBCUTANEOUS TISSUE 1ST 20 SQ CM/< Routine 02/10/2025 11:20 AM EST 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) Localized tissue (HCC) Other specified local infections of the skin and subcutaneous tissue PA DEBRIDEMENT SUBCUTANEOUS TISSUE 1ST 20 SQ CM/< Routine 02/03/2025 11:10 AM EST 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) Localized tissue (HCC) Other specified local infections of the skin and subcutaneous tissue WOUND TREATMENT Routine 01/28/2025 7:51 AM EST 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) PA DEBRIDEMENT SUBCUTANEOUS TISSUE 1ST 20 SQ CM/< Routine 01/27/2025 3:20 PM EST 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) Localized tissue (HCC) Other specified local infections of the skin and subcutaneous tissue PA DEBRIDEMENT SUBCUTANEOUS TISSUE 1ST 20 SQ CM/< Routine 01/20/2025 3:20 PM EDT 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) Localized tissue (HCC) Other specified local infections of the skin and subcutaneous tissue PA DEBRIDEMENT SUBCUTANEOUS TISSUE 1ST 20 SQ CM/< Routine 01/13/2025 3:20 PM EDT 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) Localized tissue (HCC) Other specified local infections of the skin and subcutaneous tissue PA DEBRIDEMENT SUBCUTANEOUS TISSUE 1ST 20 SQ CM/< Routine 01/06/2025 3:30 PM EDT 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) Localized tissue (HCC) Other specified local infections of the skin and subcutaneous tissue PA DEBRIDEMENT SUBCUTANEOUS TISSUE 1ST 20 SQ CM/< Routine 12/30/2024 3:10 PM EDT 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) Localized tissue (HCC) Other specified local infections of the skin and subcutaneous tissue PA DEBRIDEMENT SUBCUTANEOUS TISSUE EA ADDL 20 SQ CM Routine 12/25/2024 3:00 PM EDT 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) Localized tissue (HCC) Other specified local infections of the skin and subcutaneous tissue PA DEBRIDEMENT SUBCUTANEOUS TISSUE 1ST 20 SQ CM/< Routine 12/25/2024 3:00 PM EDT 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 [...] SURGICAL ORDERABLES Final Result * PA DEBRIDEMENT SUBCUTANEOUS TISSUE 1ST 20 SQ CM/< [...] the correct patient, procedure, equipment, sales support manager, and site/side marked as required. [...] ORDERABL ES Final Result * PA DEBRIDEMENT SUBCUTANEOUS TISSUE 1ST 20 SQ CM/< [...] the correct patient, procedure, equipment, sales support manager, and site/side marked as required. [...] SURGICAL ORDERABLES Final Result * PA DEBRIDEMENT SUBCUTANEOUS TISSUE 1ST 20 SQ CM/< [...] the correct patient, procedure, equipment, sales support manager, and site/side marked as required. [...] SURGICAL ORDERABLES Final Result * PA DEBRIDEMENT SUBCUTANEOUS TISSUE 1ST 20 SQ CM/< [...] the correct patient, procedure, equipment, sales support manager, and site/side marked as required. [...] SURGICAL ORDERABLES Final Result * PA DEBRIDEMENT SUBCUTANEOUS TISSUE 1ST 20 SQ CM/< [...] the correct patient, procedure, equipment, sales support manager, and site/side marked as required. [...] SURGICAL ORDERABLES Final Result * PA DEBRIDEMENT SUBCUTANEOUS TISSUE 1ST 20 SQ CM/< (01/27/2025 3:20 PM EST) Jerry Littleojhn Jr., MD - 01/27/2025 3:20 PM EST [...] the correct patient, procedure, equipment, sales support manager, and site/side marked as required. [...] SURGICAL ORDERABLES Final Result * PA DEBRIDEMENT SUBCUTANEOUS TISSUE 1ST 20 SQ CM/< [...] the correct patient, procedure, equipment, sales support manager, and site/side marked as required. [...] SURGICAL ORDERABLES Final Result * PA DEBRIDEMENT SUBCUTANEOUS TISSUE 1ST 20 SQ CM/< [...] the correct patient, procedure, equipment, sales support manager, and site/side marked as required. [...] SURGICAL ORDERABLES Final Result * PA DEBRIDEMENT SUBCUTANEOUS TISSUE 1ST 20 SQ CM/< [...] the correct patient, procedure, equipment, sales support manager, and site/side marked as required. [...] SURGICAL ORDERABLES Final Result * PA DEBRIDEMENT SUBCUTANEOUS TISSUE 1ST 20 SQ CM/< [...] the correct patient, procedure, equipment, sales support manager, and site/side marked as required. [...] SURGICAL ORDERABLES Final Result * PA DEBRIDEMENT SUBCUTANEOUS TISSUE 1ST 20 SQ CM/<, PA DEBRIDEMENT SUBCUTANEOUS TISSUE EA ADDL 20SQ CM [...] the correct patient, procedure, equipment, sales support manager, and site/side marked as required. [...] SURGICAL ORDERABLES Final Result * PA DEBRIDEMENT SUBCUTANEOUS TISSUE 1ST 20 SQ CM/<, PA DEBRIDEMENT SUBCUTANEOUS TISSUE EA ADDL 20SQ CM [...] the correct patient, procedure, equipment, sales support manager, and site/side marked as required. [...] the correct patient, procedure, equipment, sales support manager, and site/side marked as required. [...] Final Result from Last 3 Months Insurance [id number] (Home) [facility] [place]IS[place] ESCOBAR [id number] [facility] MCR ADV DUAL COMPLETE [employer] [facility] [place]
--- OUTSIDE RECORDS SUMMARY | 2025-03-13 11:02 | XMS_ITS | Encounter Summary ---
Author Organization [employer] ([place], [place], [place], [place], [place]) Address [address] [place] [address] Care Team Providers Care Knife Setter Grinder Machine Name Role Phone Unavailable Primary Care Provider Unavailabl e Encounter Details Date Type Department Care Team (Latest Contact Info) Description 01/27/2025 Travel Social History Tobacco Use Types Packs/Day [...] Description 03/17/2025 10:40 AM EST Office Visit [facility] [address] [place] [address] Jerry Monroe Jr., MD [address] [place] [address] 03/24/2025 10:40 AM EST Office Visit [facility] [address] [place] [address] Jerry Monroe Jr., MD [address] [place] [address] documented as of this encounter Visit Diagnoses Not on filedocumented in this encounter
--- OUTSIDE RECORDS SUMMARY | 2025-03-13 11:03 | XMS_ITS | Encounter Summary ---
Author Organization [employer] ([place], [place], [place], [place], [place]) Address [address] [place] [address] Care Team Providers Care Web Support Engineer Name Role Phone Unavailable Primary Care Provider Unavailabl e Encounter Details Date Type Department Care Team (Latest Contact Info) Description 02/03/2025 Travel Social History Tobacco Use Types Packs/Day [...] Description 03/17/2025 10:40 AM EST Office Visit [facility] [address] [place] [address] Jerry Monroe Jr., MD [address] [place] [address] 03/24/2025 10:40 AM EST Office Visit [facility] [address] [place] [address] Jerry Monroe Jr., MD [address] [place] [address] documented as of this encounter Visit Diagnoses Not on filedocumented in this encounter
--- OUTSIDE RECORDS SUMMARY | 2025-03-13 11:03 | XMS_ITS | Encounter Summary ---
Author Organization [employer] ([place], [place], [place], [place], [place]) Address [address] [place] [address] Care Team Providers Care Judicial Clerk Name Role Phone Unavailable Primary Care Provider Unavailabl e Encounter Details Date Type Department Care Team (Latest Contact Info) Description 02/10/2025 Travel Social History Tobacco Use Types Packs/Day [...] Description 03/17/2025 10:40 AM EST Office Visit [facility] [address] [place] [address] Jerry Monroe Jr., MD [address] [place] [address] 03/24/2025 10:40 AM EST Office Visit [facility] [address] [place] [address] Jerry Monroe Jr., MD [address] [place] [address] documented as of this encounter Visit Diagnoses Not on filedocumented in this encounter
--- OUTSIDE RECORDS SUMMARY | 2025-03-13 11:03 | XMS_ITS | Encounter Summary ---
Author Organization [employer] ([place], [place], [place], [place], [place]) Address [address] [place] [address] Care Team Providers Care Photocomposing Machine Operator Name Role Phone Unavailable Primary Care Provider Unavailabl e Reason for Visit * Reason Onset Date Comments follow up on supplies 02/06/2025 Encounter Details Date Type Department Care Team (Late st Contact Info) Description 02/06/2025 Telephone [facility] [address] [place] [address] Melissa Celis RN follow up on supplies Social History Tobacco Use Types Packs/Day Years Used Date Smoking Tobacco: Former Cigarettes Q uit: 03/27/2016 Smokeless Tobacco: Never Sex and Gender Information Value Date Recorded Sex Assigned at Not on file Legal Sex Male 1:35 PM CDT Gender Identity Not on file Sexual Orientation Not on file documented as of this encounter Miscellaneous Notes * Telephone Encounter - Melissa Celis RN - 02/06/2025 8:22 AM EST Tried to call patient to notify him that [place] is going to send new supplies to the correct address. Patient has a voicemail that is not set up. MAKER documented in this encounter Plan of Treatment Upcoming Encounters Date Type Department Care Team (Late st Contact Info) Description 03/17/2025 10:40 AM EST Office Visit [facility] [address] [place] [address] Jerry Monroe Jr., MD [address] [place] [address] 03/24/2025 10:40 AM EST Office Visit [facility] [address] [place] [address] Jerry Monroe Jr., MD [address] [place] [address] documented as of this encounter Visit Diagnoses Not on filedocumented in this encounter
== END 2025-03-12 23:59 | disposition home or self-care (01) ==
LOC: LAB.DROPOF 03-13 10:21
PROVIDERS: PCP Family Medicine; Visit Provider Family Medicine
DX: D64.9 Anemia, unspecified (principal); E10.69 Type 1 diabetes mellitus with other specified complication; R10.9 Unspecified abdominal pain
CPT/HCPCS: 80053; 82150; 83036; 83690; 85025

== ENCOUNTER 2025-03-26 10:12 | Outpatient (CLI) | payer MEDICARE, OTHER, SELFPAY ==
--- OUTSIDE RECORDS SUMMARY | 2025-01-31 13:00 | XMS_ITS | Encounter Summary ---
Author Organization [facility] Address [address] [place] [address] Care Team Providers Care High Speed Operator Name Role Phone Asad Victor MD Primary Care Provider + [phone] Reason for Referral * Consultation (Routine) - Authorized Specialty Diagnoses / Procedures Referred By Susan bull Referred To Contact Diagnoses Arteriovenous graft infection, initial encounter (CMS/HCC) Oscar Appiah MD [address] [place] [phone] Phone: tel: fax: Referral ID Status Reason Start Date Expiration Date V isits Requested Visits Authorized [id number] Authorized 01/31/2025 08/02/2026 1 1 Reason for Visit * Consultation (Routine) - Closed Specialty Diagnoses / Procedures Referred By Susan bull Referred To Contact Diagnoses Arteriovenous graft infection, initial encounter (CMS/HCC) Oscar Appiah MD [address] [place] [phone] Phone: tel: fax: Referral ID Status Reason Start Date Expiration Date Visits Re quested Visits Authorized [id number] Closed 12/20/2024 06/21/2026 1 1 Encounter Details Date Type Department Care Team (Late st Contact Info) Description 01/31/2025 1:00 PM EST Office Visit [place] [phone] Oscar Appiah MD [address] [facility] [address] [place] [address] Arteriovenous graft infection, initial encounter [...] time in the past 12 m [facility], were you homeless or living in [...] first t dino in the morning (EYE-LIFE TRAINER) to steady your nerves or to get [...] documented in this encounter Functional Status * BP Answer Date of Assessment Author 130/72 01/31/2025 12:46 PM EST Ashley London * Temp src Answer Date of Assessment Author Oral 01/31/2025 12:46 PM Ashley Gutiérrez * Pulse Answer Date of Assessment Author 64 01/31/2025 12:46 PM Ashley Gutiérrez * SpO2 Answer Date of Assessment Author 96 01/31/2025 12:46 PM Ashley Gutiérrez * Depression Screening Question Answer Date of Assessment Author Will the patient answer the depression risk questions? Yes 01/31/2025 12:46 PM Ashley Gutiérrez * BP Location Answer Date of Assessment Author Left arm 01/31/2025 12:46 PM Ashley Gutiérrez * Over the past 2 weeks, how often have you been bothered by any of the following problems? Question Answer Date of Assessment Author Little interest or pleasure in doing things Not at all 01/31/2025 12:46 PM Ashley Gutiérrez Feeling down, depressed, or hopeless Not at all 01/31/2025 12:46 PM Ashley Gutiérrez Patient Health Questionnaire -2 Score 0 01/31/2025 12:46 PM Ashley Gutiérrez * Pain Score Answer Date of Assessment Author 0 01/31/2025 12:46 PM Ashley Gutiérrez * Patient Position Answer Date of Assessment Author Sitting 01/31/2025 12:46 PM Ashley Gutiérrez * Pain Screening/Additional Assessments Question Answer Date of Assessment Author Pain Screening/Assessments Pain Screening 01/31/2025 1 2:46 PM Ashley Gutiérrez * Pain Screening Answer Date of Assessment Author 0-10 01/31/2025 12:46 PM Ashley Gutiérrez * BP Answer Date of Assessment Author 130/72 01/31/2025 12:46 PM Ashley Gutiérrez * Temp src Answer Date of Assessment Author Oral 01/31/2025 12:46 PM Ashley Gutiérrez * Pulse Answer Date of Assessment Author 64 01/31/2025 12:46 PM Ashley Gutiérrez * SpO2 Answer Date of Assessment Author 96 01/31/2025 12:46 PM Ashley Gutiérrez * BP Location Answer Date of Assessment Author Left arm 01/31/2025 12:46 PM Ashley Gutiérrez * Over the past 2 weeks, how often have you been bothered by any of the following problems? Question Answer Date of Assessment Author Little interest or pleasure in doing things Not at all 01/31/2025 12:46 PM Ashley Gutiérrez Feeling down, depressed, or hopeless Not at all 01/31/2025 12:46 PM Ashley Gutiérrez Patient Health Questionnaire -2 Score 0 01/31/2025 12:46 PM Ashley Gutiérrez * Pain Score Answer Date of Assessment Author 0 01/31/2025 12:46 PM Ashley Gutiérrez * Patient Position Answer Date of Assessment Author Sitting 01/31/2025 12:46 PM Ashley Gutiérrez documented as of this encounter Mental Status * BP Answer Entry Date Author 130/72 01/31/2025 12:46 PM Ashley Gutiérrez * Temp src Answer Entry Date Author Oral 01/31/2025 12:46 PM Ashley Gutiérrez * Pulse Answer Entry Date Author 64 01/31/2025 12:46 PM Ashley Gutiérrez * SpO2 Answer Entry Date Author 96 01/31/2025 12:46 PM Ashley Gutiérrez * Depression Screening Question Answer Entry Date Author Will the patient answer the depression risk questions? Yes 01/31/2025 12:46 PM Ashley Gutiérrez * BP Location Answer Entry Date Author Left arm 01/31/2025 12:46 PM Ashley Gutiérrez * Over the past 2 weeks, how often have you been bothered by any of the following problems? Question Answer Entry Date Author Little interest or pleasure in doing things Not at all 01/31/2025 12:46 PM Ashley Gutiérrez Feeling down, depressed, or hopeless Not at all 01/31/2025 12:46 PM Ashley Gutiérrez Patient Health Questionnaire -2 Score 0 01/31/2025 12:46 PM Ashley Gutiérrez * [facility] Calculation Answer Entry Date Author 3 01/31/2025 12:46 PM Ashley Gutiérrez * Restart Pain Assessment Timer Answer Entry Date Author Yes 01/31/2025 12:46 PM Ashley Gutiérrez * Pain Score Answer Entry Date Author 0 01/31/2025 12:46 PM Ashley Gutiérrez * BP Cuff Size Answer Entry Date Author Adult 01/31/2025 12:46 PM Ashley Gutiérrez * Patient Position Answer Entry Date Author Sitting 01/31/2025 12:46 PM Ashley Gutiérrez * Pain Screening Answer Entry Date Author 0-10 01/31/2025 12:46 PM Ashley Gutiérrez documented in this encounter Miscellaneous Notes * Progress Notes [...] Description 04/11/2025 3:00 PM EST Office Visit [place] [address] [place] [address] Oscar Appiah MD [address] [place] [address] [address] [place] [phone] 05/02/2025 2:[address] [facility] [address] [place] [phone] 05/02/2025 3:00 PM EST Office Visit [facility] [address] [place] [address] Terrell Gautam MD [address] [facility] [address] [place] [address] Scheduled Referrals Name Type Priority Associated Diagnoses Orde r Schedule Follow Up ID Outpatient Referral Routine Arteriovenous graft infection, initial encounter ([facility]) Expected: 04/11/2025, Expires: 03/02/2026 documented as of this encounter Goals Goal Patient Goal Type Associated Problems Recent Progress Patient-Stated? Author Autogenera louise Goal Care Plan Autogenerated Problem No Ekta Arnett documented as of this encounter Results * (ABNORMAL) Comprehensive metabolic panel (01/31/2025 1:09 PM EST) Glucose, Plasma 327(H) 74 - 99 mg/dL 01/31/2025 3:47 PM EST [facility] BUN, Plasma 26(H) 8 - 23 mg/dL 01/31/2025 3:47 PM EST [facility] Creatinine, Plasma 0.80 0.70 - 1.20 mg/dL 01/31/2025 3:47 PM EST [facility] BUN/Creatinine Ratio 33 01/31/2025 3:47 PM EST [facility] Sodium, Plasma 132(L) 136 - 145 mmol/L 01/31/2025 3:47 PM EST [facility] Potassium, Plasma 4.7 3.6 - 4.9 mmol/L 01/31/2025 3:47 PM EST [facility] Chloride, Plasma 95(L) 97 - 107 mmol/L 01/31/2025 3:47 PM EST [facility] CO2, Plasma 26 22 - 29 mmol/L 01/31/2025 3:47 PM EST [facility] Anion Gap 11 6 - 16 mmol/L 01/31/2025 3:47 PM EST [facility] Total Calcium, Plasma 10.6(H) 8.9 - 10.2 mg/dL 01/31/2025 3:47 PM EST [facility] Total Protein 6.8 6.3 - 7.9 g/dL 01/31/2025 3:47 PM EST [facility] Albumin, Plasma 3.7 3.5 - 5.2 g/dL 01/31/2025 3:47 PM EST [facility] AST, Plasma 12 10 - 50 U/L 01/31/2025 3:47 PM EST [facility] ALT, Plasma 14 10 - 50 U/L 01/31/2025 3:47 PM EST [facility] Alkaline Phosphatase, Plasma 124(H) 40 - 115 U/L 01/31/2025 3:47 PM EST [facility] Total Bilirubin, Plasma 0.2 0.2 - 1.1 mg/dL 01/31/2025 3:47 PM EST [facility] eGFRcr 98.2 mL/min/1.7 3m*2 01/31/2025 3:47 PM EST [facility] Comment:Reported eGFRcr in m L/min/1.73m2 is based the CKD-EPI 2020 equation that does not use a race coefficient. Blood Venous blood specimen / Unknown Venipuncture / Unknown 01/31/2025 1:09 PM EST 01/31/2025 1:14 PM EST us Oscar Appiah MD LAB BLOOD ORDERABLES Final Result [facility] [address] [place] [address] * (ABNORMAL) CBC and differential (01/31/2025 1:09 PM EST) WBC Count 8.84 3.70 - 10.30 10*3/uL LAB HEMATOLOGY METHOD 01/31/2025 3:41 PM EST [facility] RBC Count 3.98(L) 4.60 - 6.10 10*6/uL LAB HEMATOLOGY METHOD 01/31/2025 3:41 PM EST [facility] HGB 11.2(L) 13.7 - 17.5 g/dL LAB HEMATOLOGY METHOD 01/31/2025 3:41 PM EST [facility] HCT 34.0(L) 40.0 - 51.0 % LAB HEMATOLOGY METHOD 01/31/2025 3:41 PM [facility] Platelet Count 310 155 - 369 10*3/uL LAB HEMATOLOGY METHOD 01/31/2025 3:41 PM [facility] MCV 85 79 - 98 fL LAB HEMATOLOGY METHOD 01/31/2025 3:41 PM [facility] MCH 28.1 26.0 - 32.0 pg LAB HEMATOLOGY METHOD 01/31/2025 3:41 PM [facility] MCHC 32.9 30.7 - 35.5 g/dL LAB HEMATOLOGY METHOD 01/31/2025 3:41 PM [facility] RDW 15.3(H) 11.5 - 14.5 % LAB HEMATOLOGY METHOD 01/31/2025 3:41 PM [facility] MPV 9.5 8.8 - 12.5 fL LAB HEMATOLOGY METHOD 01/31/2025 3:41 PM [facility] nRBC 0.0 <=0.0 per 100 WBCs LAB HEMATOLOGY METHOD 01/31/2025 3:41 PM [facility] Differential Type Automated LAB HEMATOLOGY METHOD 01/31/2025 3:41 PM [facility] Neutrophils % 68 % LAB HEMATOLOGY METHOD 01/31/2025 3:41 PM [facility] Lymphocytes % 20 % LAB HEMATOLOGY METHOD 01/31/2025 3:41 PM [facility] Monocytes % 9 % LAB HEMATOLOGY METHOD 01/31/2025 3:41 PM [facility] Eosinophils % 1 % LAB HEMATOLOGY METHOD 01/31/2025 3:41 PM [facility] Basophils % 1 % LAB HEMATOLOGY METHOD 01/31/2025 3:41 PM [facility] Immature Granulocytes % 1 % LAB HEMATOLOGY METHOD 01/31/2025 3:41 PM [facility] Neutrophils Absolute 6.10 1.60 - 6.10 10*3/uL LAB HEMATOLOGY METHOD 01/31/2025 3:41 PM [facility] Lymphocytes Absolute 1.72 1.20 - 3.90 10*3/uL LAB HEMATOLOGY METHOD 01/31/2025 3:41 PM [facility] Monocytes Absolute 0.82 0.30 - 0.90 10*3/uL LAB HEMATOLOGY METHOD 01/31/2025 3:41 PM EST [facility] Eosinophils Absolute 0.09 0.00 - 0.50 10*3/uL LAB HEMATOLOGY METHOD 01/31/2025 3:41 PM EST [facility] Basophils Absolute 0.04 0.00 - 0.10 10*3/uL LAB HEMATOLOGY METHOD 01/31/2025 3:41 PM EST [facility] Immature Granulocytes Absolute 0.07(H) 0.00 - 0.06 10*3/uL LAB HEMATOLOGY METHOD 01/31/2025 3:41 PM EST [facility] Blood Venous blood specimen / Unknown Venipuncture / Unknown 01/31/2025 1:09 PM EST 01/31/2025 1:14 PM EST Narrative [facility] - 01/31/2025 3:41 PM EST Therapeutic decision making should be based on absolute values, rather than percentages. us Oscar Appiah MD LAB BLOOD ORDERABLES Final Result [facility] [address] [place] [address] documented in this encounter Visit Diagnoses Diagnosis [...] documented as of this encounter Care Teams High Speed Operator Relationship Specialty Start Date End Date Asad Victor MD [address] [place] [address] PCP - General 10/07/22 documented as of this encounter
--- NOTE | 2025-03-26 10:15 | CT_ITS ---
FINAL REPORT TECHNIQUE: Thin section axial images were obtained through the lungs using a low-dose technique per lung cancer screening protocol. Reconstruction images were obtained using the axial data. Exam was performed using dose reduction technique. CLINICAL HISTORY: lung cancer screening former smoker quit 8 years ago 2ppd x53 years FINDINGS: CTDL vol: 2.90 DLP: 112.29 Lungs: There is a 4 mm subpleural left upper lobe nodule on series 4, image 21. There is a 3 mm lingular nodule on series 4, image 51. Emphysema is noted. There is evidence of old calcified granulomatous disease. There is a subpleural right upper lobe nodule measuring 8 mm. There may be some calcification. There is a questionably partially calcified right upper lobe nodule measuring 8 mm. Lymph nodes: No thoracic lymphadenopathy. Mediastinum: Heart size is normal. There is prominent coronary artery calcification. Pleura/pericardium: No pleural or pericardial effusion. Other: No acute abnormality in the upper abdomen. IMPRESSION: Bilateral pulmonary nodules as above. Modifier as: Prominent coronary artery calcification. Lung RADS: 4AS Recommendation: Recommend low-dose chest CT in 3 months. Reviewed, Interpreted and Dictated by Rossana Feng MD Transcribed by Vida Griggs Authenticated and . [facility] [place]
--- OUTSIDE RECORDS SUMMARY | 2025-03-26 10:16 | XMS_ITS | Clinical Summary ---
Author Organization [facility] Address [address] [place] [address] Care Team Providers Care Infant Nanny Name Role Phone Asad Victor MD Primary Care Provider + [phone] Allergies No known active allergies Medications lisinopril [...] 18 tablet 11/15/19 25 Active Continuous Glucose Vulcanizer Rubber Plate (Dexcom G6 restaurant front manager) device USE DIRECTED TO TEST BLOOD GLUCOSE LEVEL 11/20/19 Active Continuous Glucose Sensor (Dexcom G6 Sensor) misc USE DIRECTED TO TEST BLOOD GLUCOSE LEVEL CHANGE SENSOR EVERY 10 DAYS 01/14/20 Active Continuous Glucose Transmitter (Dexcom G6 transmitter) [...] 60 MG 24 hr tablet .COMPLEX 12/13/19 Active ondansetron ODT (Zofran-ODT) 4 MG disintegrating tablet 1 tablet. 11/22/19 Active Xarelto 2.5 MG tablet Take 1 tablet by mouth 2 times a day. 12/13/19 25 Active fluconazole (Diflucan) 200 MG tabletIndications: Arteriovenous graft infection, initial encounter (CMS/HCC) Take 2 tablets by mouth daily. 180 tablet 1 02/01/20 25 Active levoFLOXacin (Levaquin) 500 MG tabletIndications: Arteriovenous graft infection, initial encounter (CMS/[facility]) Take 1 tablet by mouth daily. 90 tablet 1 02/01/20 25 026 Active Active Problems Problem Noted Date Diagnosed [...] Description 01/31/2025 1:00 PM EST Office Visit [facility] [address] [place] [address] Oscar Appiah MD Arteriovenous graft infection, initial encounter (CMS/[facility]) (Primary Dx) 01/31/2025 Travel 01/23/2025 10:40 AM EDT Office Visit [facility] [address] [facility] 5th Floor [address] [place] [address] Nathaly Nowak MD Pseudoaneurysm of left femoral artery (Primary Dx); Critical limb ischemia of left lower extremity; Left carotid stenosis; Atrial fibrillation, unspecified type ([facility]/HCC); Stenosis of both vertebral arteries; Primary hypertension; Coronary artery disease involving assiniboine and gros ventre tribes heart without angina pectoris, unspecified vessel or lesion type; Chronic obstructive pulmonary disease, unspecified COPD type (CMS/HCC); Hyperlipidemia, unspecified hyperlipidemia type; Diabetes mellitus due to underlying condition with hyperosmolarity without coma, without long-term current use of insulin 01/23/2025 8:41 AM EDT - 01/23/2025 11:59 PM EDT Hospital Encounter [facility] [address] [place] [address] Critical limb ischemia of left lower extremity; Pseudoaneurysm of left femoral artery Discharge Disposition: Home or Self Care 01/23/2025 8:40 AM EDT Hospital Encounter [facility] [address] [place] [address] Critical limb ischemia of left lower extremity; Pseudoaneurysm of left femoral artery Discharge Disposition: Home or Self Care 01/23/2025 Travel 12/26/2024 Telephone [facility] [address], [address] [address] Nathaly Nowak MD from Last 3 Months Immunizations Immunization [...] first t dino in the morning (EYE-SUPERVISOR COMPRESSED YEAST) to steady your nerves or to get rid of a hangover? 0 10/18/2021 CAGE Questionnaire Score 0 022 Utilities Answer Date Recorded In the past 12 months has e [employer], gas, oil, or water [employer] threatened to shut off services in your [...] Description 04/11/2025 3:00 PM EST Office Visit [address] [address] [place] [address] [place] [address] [address] [place] [address] 05/02/2025 2:00 PM EST Appointment [facility] [address] [facility] 5th Floor [address] [place] [address] 05/02/2025 3:00 PM EST Office Visit [facility] [address] [facility] 5th Floor [address] [place] [address] Terrell Gautam MD [address] [facility] [address] [place] [address] Health Maintenance Due Date Last Done Comments [facility]-Medicare Annual Wellness (AWV) 1960 [facility]-Infant/Child/Adol SDOH [...] 08/19/2023 [facility]-Abdominal Aortic Aneurysm (AAA) Screening 2024 [id number] Vaccine (3 - season) 2024 02/06/2021, 07/31/2020 [facility]-Influenza Vaccine (#1) 11/25/202402/06, 03/11/2020, 03/05/2019, Additional history exists [facility]-Diabetes: Hemoglobin A1C 02/05/2025 11/06/2024, 02/26/2019 [facility]- SDOH [...] [employer] Devices Implanted Type [employer] Senior Sergeant Device Identifier Shelf Expiration Date Model / Serial / Lot Pacemaker Pacemaker Left: Chest Vascuguard 8 X 8 - [id number] Implanted:Qty: 1 on 10/17/2024 by Terrell Gautam MD at [facility] Left: Leg [id number] 05/10/2026 [id number] / / [id number] Stent Endoprosthesis Vi[employer]ahn 9fr [id number] - [id number] Implanted:Qty: 1 on 10/17/2024 by Terrell Gautam MD at [facility] [employer]-[id number] 84 05/25/2027 [id number] / [id number] Procedures Procedure Name Priority Date/Time Associated Diagnosis Comments CBC WITH AUTO DIFFERENTIAL Routine 01/31/2025 1:09 PM EST Arteriovenous graft infection, initial encounter (CMS/HCC) COMPREHENSIVE METABOLIC PANEL, PLASMA Routine 01/31/2025 1:09 PM EST Arteriovenous graft infection, initial encounter (CMS/HCC) VAS US ARTERIAL DUPLEX LOWER EXTREMITY UNILATERAL Routine 01/23/2025 9:46 AM EDT Critical limb ischemia of left lower extremity Pseudoaneurysm of left femoral artery VAS ANKLE BRACHIAL INDEX - SEGMENTAL Routine 01/23/2025 9:30 AM EDT Critical limb ischemia of left lower extremity Pseudoaneurysm of left femoral artery HEMOGLOBIN A1C STAT 11/06/2024 1:07 AM EDT HEPATITIS C ANTIBODY - ED W/REFLEX TO HCV QUANT PCR STAT 09/20/2024 10:33 PM EDT from Last 3 Months or Most Recently Relevant to Health Maintenance Results * (ABNORMAL) CBC and differential (01/31/2025 1:09 PM EST) WBC Count 8.84 3.70 - 10.30 10*3/uL LAB HEMATOLOGY METHOD 01/31/2025 3:41 PM EST [facility] RBC Count 3.98(L) 4.60 - 6.10 10*6/uL LAB HEMATOLOGY METHOD 01/31/2025 3:41 PM EST [facility] HGB 11.2(L) 13.7 - 17.5 g/dL LAB HEMATOLOGY METHOD 01/31/2025 3:41 PM [facility] HCT 34.0(L) 40.0 - 51.0 % LAB HEMATOLOGY METHOD 01/31/2025 3:41 PM EST [facility] Platelet Count 310 155 - 369 10*3/uL LAB HEMATOLOGY METHOD 01/31/2025 3:41 PM EST [facility] MCV 85 79 - 98 fL LAB HEMATOLOGY METHOD 01/31/2025 3:41 PM EST [facility] MCH 28.1 26.0 - 32.0 pg LAB HEMATOLOGY METHOD 01/31/2025 3:41 PM [facility] MCHC 32.9 30.7 - 35.5 g/dL LAB HEMATOLOGY METHOD 01/31/2025 3:41 PM [facility] RDW 15.3(H) 11.5 - 14.5 % LAB HEMATOLOGY METHOD 01/31/2025 3:41 PM EST [facility] MPV 9.5 8.8 - 12.5 fL LAB HEMATOLOGY METHOD 01/31/2025 3:41 PM [facility] nRBC 0.0 <=0.0 per 100 WBCs LAB HEMATOLOGY METHOD 01/31/2025 3:41 PM [facility] Differential Type Automated LAB HEMATOLOGY METHOD 01/31/2025 3:41 PM [facility] Neutrophils % 68 % LAB HEMATOLOGY METHOD 01/31/2025 3:41 PM EST [facility] Lymphocytes % 20 % LAB HEMATOLOGY METHOD 01/31/2025 3:41 PM [facility] Monocytes % 9 % LAB HEMATOLOGY METHOD 01/31/2025 3:41 PM [facility] Eosinophils % 1 % LAB HEMATOLOGY METHOD 01/31/2025 3:41 PM EST [facility] Basophils % 1 % LAB HEMATOLOGY METHOD 01/31/2025 3:41 PM [facility] Immature Granulocytes % 1 % LAB HEMATOLOGY METHOD 01/31/2025 3:41 PM [facility] Neutrophils Absolute 6.10 1.60 - 6.10 10*3/uL LAB HEMATOLOGY METHOD 01/31/2025 3:41 PM [facility] Lymphocytes Absolute 1.72 1.20 - 3.90 10*3/uL LAB HEMATOLOGY METHOD 01/31/2025 3:41 PM [facility] Monocytes Absolute 0.82 0.30 - 0.90 10*3/uL LAB HEMATOLOGY METHOD 01/31/2025 3:41 PM [facility] Eosinophils Absolute 0.09 0.00 - 0.50 10*3/uL LAB HEMATOLOGY METHOD 01/31/2025 3:41 PM [facility] Basophils Absolute 0.04 0.00 - 0.10 10*3/uL LAB HEMATOLOGY METHOD 01/31/2025 3:41 PM [facility] Immature Granulocytes Absolute 0.07(H) 0.00 - 0.06 10*3/uL LAB HEMATOLOGY METHOD 01/31/2025 3:41 PM [facility] Blood Venous blood specimen / Unknown Venipuncture / Unknown 01/31/2025 1:09 PM EST 01/31/2025 1:14 PM EST [facility] - 01/31/2025 3:41 PM EST Therapeutic decision making should be based on absolute values, rather than percentages. us Oscar Appiah MD LAB BLOOD ORDERABLES Final Result [facility] [address] [place] [address] * (ABNORMAL) Comprehensive metabolic panel (01/31/2025 1:09 PM EST) Glucose, Plasma 327(H) 74 - 99 mg/dL 01/31/2025 3:47 PM EST [facility] BUN, Plasma 26(H) 8 - 23 mg/dL 01/31/2025 3:47 PM EST [facility] Creatinine, Plasma 0.80 0.70 - 1.20 mg/dL 01/31/2025 3:47 PM EST [facility] BUN/Creatinine Ratio 33 01/31/2025 3:47 PM EST [facility] Sodium, Plasma 132(L) 136 - 145 mmol/L 01/31/2025 3:47 PM EST [facility] Potassium, Plasma 4.7 3.6 - 4.9 mmol/L 01/31/2025 3:47 PM EST [facility] Chloride, Plasma 95(L) 97 - 107 mmol/L 01/31/2025 3:47 PM EST [facility] CO2, Plasma 26 22 - 29 mmol/L 01/31/2025 3:47 PM EST [facility] Anion Gap 11 6 - 16 mmol/L 01/31/2025 3:47 PM EST [facility] Total Calcium, Plasma 10.6(H) 8.9 - 10.2 mg/dL 01/31/2025 3:47 PM EST [facility] Total Protein 6.8 6.3 - 7.9 g/dL 01/31/2025 3:47 PM EST [facility] Albumin, Plasma 3.7 3.5 - 5.2 g/dL 01/31/2025 3:47 PM EST [facility] AST, Plasma 12 10 - 50 U/L 01/31/2025 3:47 PM EST [facility] ALT, Plasma 14 10 - 50 U/L 01/31/2025 3:47 PM EST [facility] Alkaline Phosphatase, Plasma 124(H) 40 - 115 U/L 01/31/2025 3:47 PM EST [facility] Total Bilirubin, Plasma 0.2 0.2 - 1.1 mg/dL 01/31/2025 3:47 PM EST [facility] eGFRcr 98.2 mL/min/1.7 3m*2 01/31/2025 3:47 PM EST [facility] Comment:Reported eGFRcr in m L/min/1.73m2 is based the CKD-EPI 2020 equation that does not use a race coefficient. Blood Venous blood specimen / Unknown Venipuncture / Unknown 01/31/2025 1:09 PM EST 01/31/2025 1:14 PM EST us Oscar Appiah MD LAB BLOOD ORDERABLES Final Result [facility] [address] [place] [address] * VAS US Arterial Duplex Lower Extremity [...] are demonstrated at the level of the PLATFORM POWER TECHNICIAN (imaged on arterial duplex). Monophasic waveforms are demonstrated at the levels of the COMPONENT ASSEMBLER SUPERVISOR and DPA. Segmental pressures are below normal limits with an SIL of 0.62 (118 mmHg) at the COMPONENT ASSEMBLER SUPERVISOR and an SIL of 0.79 (149 mmHg) at the DPA. Digit pressures are 20 mmHg. Left: Monophasic waveforms are demonstrated at the levels of the PLATFORM POWER TECHNICIAN (imaged on arterial duplex) and DPA. No flow detected in the COMPONENT ASSEMBLER SUPERVISOR. Segmental pressures are below normal limits with [...] are demonstrated at the level of the PLATFORM POWER TECHNICIAN(imaged on arterial duplex). Monophasic waveforms are demonstrated at thelevels of the COMPONENT ASSEMBLER SUPERVISOR and DPA. Segmental pressures are below normal limitswith an SIL of 0.62 (118 mmHg) at the COMPONENT ASSEMBLER SUPERVISOR and an SIL of 0.79 (149 mmHg) atthe DPA. Digit pressures are 20 mmHg. Left: Monophasic waveforms are demonstrated at the levels of the PLATFORM POWER TECHNICIAN(imaged on arterial duplex) and DPA. No flow detected in the COMPONENT ASSEMBLER SUPERVISOR.Segmental pressures are below normal limits with an [...] CV VASCULAR PROCEDURES Final Result * (ABNORMAL) Hemoglobin A1c (11/06/2024 1:07 AM [...] [facility] [address] [place] [address] * Hepatitis C Antibody - ED (09/20/2024 10:33 PM EDT) Hepatitis C Antibody Negative Negative 09/20/2024 11:39 PM EDT [facility] Blood Venous blood specimen / Unknown Venipuncture / Unknown 09/20/2024 10:33 PM EDT 09/20/2024 10:53 PM EDT us Giorgi Perkins MD LAB BLOOD ORDERABLES Final Result [facility] [address] [place] [address] from Last 3 Months or Most Recently Relevant to Health Maintenance Additional Health Concerns Active Problems Noted Date Diagnosed Date Autogenerated Problem 09/23/2024 Insurance MEDICAID [facility] MEDICARE Advance Directives * Full Code (Latest [...] Patient has decision-making capacity? Yes Care Teams Infant Nanny Relationship Specialty Start Date End Date Asad Victor MD [address] [place] [address] PCP - General 10/07/22
--- OUTSIDE RECORDS SUMMARY | 2025-03-26 10:16 | XMS_ITS | Encounter Summary ---
Author Organization [facility] Address [address] [place] [address] Care Team Providers Care Creative Writing Teacher Name Role Phone Asad Victor MD Primary Care Provider + [phone] Encounter Details Date Type Department Care Team [...] first t dino in the morning (EYE-EDUCATION ANALYST) to steady your nerves or to [...] as of this encounter Functional Status * Communicable Disease Screening Question Answer Date of Assessment Author Have you been in contact wit h someone who was sick? No / Unsure 01/31/2025 12:18 PM EST Demetrio Musa y L Do you have any of the following new or worsening symptoms? None of these 01/31/2025 12:18 PM EST Nelda Musa L * Travel Screening Question Answer Date of Assessment Author Have you traveled internatio sumit or domestically in the last month? No 01/31/2025 12:18 PM EST Stew Nelda jaime L documented as of this encounter Mental Status * Communicable Disease Screening Question Answer Entry Date Author Have you been in contact wit h someone who was sick? No / Unsure 01/31/2025 12:18 PM EST Demetrio Musa y L Do you have any of the following new or worsening symptoms? None of these 01/31/2025 12:18 PM EST Nelda Musa L * Travel Screening Question Answer Entry Date Author Have you traveled internatio sumit or domestically in the last month? No 01/31/2025 12:18 PM EST Stew Nelda jaime documented in this encounter Plan of Treatment Upcoming Encounters Date Type Department Care Team (Late st Contact Info) Description 04/11/2025 3:00 PM EST Office Visit [facility] [address] [place] [address] Oscar Appiah MD [address] [facility] [address] [place] [address] 05/02/2025 2:00 PM EST Appointment [facility] [address] [facility] 5th Floor [address] [place] [address] 05/02/2025 3:00 PM EST Office Visit [facility] [address] [facility] 5th Floor [address] [place] [address] Terrell Gautam MD [address] [facility] [address] [place] [address] documented as of this encounter [...] documented as of this encounter Care Teams Creative Writing Teacher Relationship Specialty Start Date End Date Asad Victor MD [address] [place] [address] PCP - General 10/07/22 documented as of this encounter
--- OUTSIDE RECORDS SUMMARY | 2025-03-26 10:16 | XMS_ITS | Encounter Summary ---
Author Organization [facility] Address [address] [place] [address] Care Team Providers Care Mixer Wet Pour Name Role Phone Asad Victor MD Primary Care Provider + [phone] Encounter Details Date Type Department Care Team (Late st Contact Info) Description 12/07/2024 Results Follow-Up [address] [address] Vaishali Kraus MD [address] [place] [address] [address] [place] [address] Social History Tobacco Use Types [...] drink first t dino in the morning (EYE-FORMING PRESS OPERATOR) to steady your nerves or to [...] Description 04/11/2025 3:00 PM EST Office Visit [facility] [address] [facility] [place] [address] Oscar Appaih MD [address] [facility] [address] [place] [address] 05/02/2025 2:00 PM EST Appointment [facility] [address] [place] [address] 05/02/2025 3:00 PM EST Office Visit [facility] [address] [facility] 5th Floor [address] [place] [address] Terrell Gautam MD [address] [address] [place] [address] documented as of this encounter Goals Goal [...] documented as of this encounter Care Teams Mixer Wet Pour Relationship Specialty Start Date End Date Asad Vicotr MD [address] [place] [address] PCP - General 10/07/22 documented as of this encounter
== END 2025-03-26 23:59 | disposition home or self-care (01) ==
LOC: RAD 10:13
PROVIDERS: PCP Family Medicine; Visit Provider Family Medicine
DX: Z12.2 Encounter for screening for malignant neoplasm of respiratory organs (principal); R91.8 Other nonspecific abnormal finding of lung field; J43.9 Emphysema, unspecified; Z87.891 Personal history of nicotine dependence; I25.10 Atherosclerotic heart disease of native coronary artery without angina pectoris
CPT/HCPCS: 71271